=== PATIENT | female | born 1965 | race Caucasian/White ===

== ENCOUNTER 2017-12-26 19:54 | Emergency (ER) | payer MEDICAID, SELFPAY ==
[2017-12-26 19:55] VITALS: BP 134/73; PULSE 95; RESP 17; TEMP 35.9; O2SAT 97; BMI 28.0
[2017-12-26 20:36] LABS: Bedside Glucose > 500 mg/dL (70-110)
[2017-12-26 20:44] LABS: Absolute Lymphocyte Count 3.32 X10^3/ul (0.83-4.51); Absolute Neutrophil Count 4.3 X10^3/uL (2.0-7.7); Basophil# 0.02 X10^3/uL; Basophil% 0.2 % (0-1); Eosinophil# 0.06 X10^3/uL; Eosinophils% 0.7 % (0-5); Hematocrit 41.9 % (37-47); Hemoglobin 13.9 g/dl (12.0-15.0); Lymphocyte # 3.32 X10^3/ul (4.0); Lymphocyte % 41.4 % (19-41); Mean Corp Hgb Conc 33.2 g/gl (32-36); Mean Corpuscular Volume 90.5 fL (81-99); Monocyte# 0.31 X10^3/uL; Monocyte% 3.9 % (0-10); Neutrophil % 53.7 % (47-70); Platelet Count 265 K/mm3 (150-450); RBC Distribution Width CV 13.1 % (11.6-14.6); RBC Distribution Width SD 42.9 fl (35.1-43.9); Red Blood Count 4.63 M/mm3 (4.2-5.4)
[2017-12-26 20:45] LABS: POSITIVE COUNT NO; POSITIVE DIFFERENTIAL NO; POSITIVE MORPHOLOGY NO
[2017-12-26 20:59] LABS: Bacteria 0 SEEN /hpf (None Seen); Mucous, Urine 0 SEEN /hpf (<or=2+); White Blood Cells 0 SEEN /hpf (0-5)
[2017-12-26] MEDS: 0.9% Normal Saline 1,000 ML 250 ML IV (21:00)
[2017-12-26] MEDS: Ondansetron 4 MG/2 ML Vial IV (21:00)
[2017-12-26 21:01] LABS: Color, Urine Yellow (Yellow); Glucose, Dipstick 1000 mg/dl (Normal); Ketone-Dipstick Negative (Negative); Leukocyte Esterase-Dipstick Negative /ul (Negative); Nitrite-Dipstick Negative (Negative); Occult Blood-Urine 250 /ul (Negative); Protein-Dipstick Negative (Negative); Urine Bilirubin Dipstick Negative (Negative); Urine Clarity Cloudy (Clear); Urine Urobilinogen Normal (Normal)
[2017-12-26 21:07] LABS: Anion Gap 10 (5-15); BUN 11 mg/dL (7-18); Calcium,Total 8.4 mg/dL (8.5-10.1); Chloride 95 mmol/L (98-107); Creatinine, Serum 1.37 mg/dL (0.55-1.02); EST Glomerular Filtration Rate 43 mL/min (>60); Est Glom Filt Rate - Afr Amer 52 mL/min (>60); Estimated Creatinine Clearance 38.83 ml/min; Glucose 559 mg/dL (74-106); Sodium Level 132 mmol/L (136-145)
--- NOTE | 2017-12-26 21:07 | ED.RN ---
LAB CALLS WITH CRITICAL RESULT, GLUCOSE 559, DR. ZHOU MADE AWARE.
[2017-12-26 21:09] LABS: Red Blood Cells-Urine > 100 SEEN /hpf (0-5); Squamous Epithelial Cells - UA 0-5 SEEN /hpf (5-10)
--- NOTE | 2017-12-26 21:29 | ED.VISSUMM ---
- ER Visit Summary Date of Service: 12/26/17 Chief Complaint: R Flank pain History of Present Illness: The patient is a 52 F with right flank pain. It started yesterday. She has been having some hematuria. She has a history of kidney stones. Last episode was about a year ago. She sees Dr. Pichardo for them. She took her home oxycodone but it did not help. She denies a fever. No other symptoms Physical Examination: Vital signs reviewed. HEENT exam unremarkable. Heart is regular rate and rhythm without murmurs. Lungs are clear to auscultation. Abdomen is soft and redness in the right lower quadrant. Extremities reveal no edema. Skin exam normal. Neurologic exam normal. Test Results: Laboratory studies show blood sodium of 132 and glucose of 559. There are greater than 100 red blood cells in the urine. Emergency Department Course and Treatment: She was treated with morphine and Zofran here. She continued to have pain so she was given Dilaudid as well as IV fluids. She is allergic to nonsteroidals so Toradol was not given. Patient was given 20 units of regular insulin for the hyperglycemia. The patient felt improved. She does have narcotics to take at home for her kidney stones. She will call her urologist tomorrow for follow-up appointment. Treatment Plan: [] Disposition: Discharge Impression: Hyperglycemia, hematuria, flank pain This note was generated with [employer] dictation software. It may contain incorrect words, spelling, and punctuation that were not noted in review of the chart prior to signing ED Disposition - Plan for ED Patient: Chief Complaint: Flank Pain Referrals: Jeferson Valencia III, MD [Primary Care Provider] -
--- NOTE | 2017-12-26 21:33 | ED.DEP ---
ED Disposition - Plan for ED Patient: Disposition: Home or Assisted Living Chief Complaint: Flank Pain Instructions: ED Stone Renal W Colic Referrals: Jeferson Valencia III, MD [Primary Care Provider] -
[2017-12-26] MEDS: HYDROmorphone 1 MG/ML Syringe IV (21:49)
[2017-12-26 21:55] VITALS: BP 127/76; PULSE 81; RESP 20
[2017-12-26 22:06] VITALS: BP 116/69; PULSE 82; RESP 16; O2SAT 96
== END 2017-12-26 22:08 | disposition home or self-care (01) ==
PROVIDERS: Emergency Provider Emergency Medicine; Family Provider Family Medicine; PCP Family Medicine
DX: E11.65 Type 2 diabetes mellitus with hyperglycemia (principal); R31.9 Hematuria, unspecified; R10.9 Unspecified abdominal pain; Z87.442 Personal history of urinary calculi; Z72.0 Tobacco use
CPT/HCPCS: 80048; 81001; 82962; 85025; 99283; J7030; A4216; J2405

== ENCOUNTER 2017-12-27 21:05 | Emergency (ER) | payer MEDICAID, SELFPAY ==
[2017-12-27 21:07] VITALS: BP 151/83; PULSE 86; PULSE 90; RESP 17; TEMP 36.6; O2SAT 97; BMI 31.3
--- NOTE | 2017-12-27 22:03 | US_ITS ---
STUDY: RENAL ULTRASOUND - COMPLETE REASON FOR EXAM: Female, 52 years old. Right flank pain TECHNIQUE: Ultrasound evaluation of the kidneys was performed with real-time and static gallegos-scale imaging. COMPARISON: CT dated 03/17/2017. FINDINGS: RIGHT KIDNEY: Normal location of the right kidney, which is normal in size. The right kidney measures 11.6 cm. There is a normal cortex of the right kidney. There is no right renal mass or cyst. There are no right renal calculi. There is mild hydronephrosis of the right kidney. DISTAL RIGHT URETER: There is non-visualization of the distal right ureter. There is no demonstrated right ureterovesical junction calculus. There is no demonstrated right ureteral jet. LEFT KIDNEY: Normal location of the left kidney, which is normal in size. The left kidney measures 10.8 cm. There is a normal cortex of the left kidney. There is no left renal mass or cyst. There are no left renal calculi. There is mild hydronephrosis of the left kidney. DISTAL LEFT URETER: There is non-visualization of the distal left ureter. There is no demonstrated left ureterovesical junction calculus. There is no demonstrated left ureteral jet. AORTA: No evidence of abdominal aortic aneurysm. I.V.C.: The IVC is patent. BLADDER: The urinary bladder is partially distended and appears unremarkable. US/Kidney and Bladder IMPRESSION: Mild bilateral hydronephrosis with no cause identified on this study. Further evaluation with CT is recommended to evaluate for ureteral stone or obstruction. Electronically Signed: Michael Cortez, at 23:16 EST Tel , Service support ,
--- NOTE | 2017-12-27 22:08 | ED.DCSUM_ITS ---
- ER Visit Summary Date of Service: 12/27/17 Chief Complaint: [Right flank pain] History of Present Illness: The patient is a 52 F [who presents the emergency department with right flank pain. It started 2 days ago. She has had some hematuria. She was seen in the emergency department last night and had blood work and a urinalysis which was consistent with a possible kidney stone. Pain was controlled. Patient will follow-up with her primary care doctor tomorrow however her pain was out of control tonight and she called her doctor who told her to come to the emergency department for pain control. She has had 3-4 CAT scans for this in the past. She did not have any imaging last night. She has had chills but no fever. She has hematuria. Patient is diabetic she states her blood sugar was 503 today. She has had some nausea but no vomiting. Bowel movements have been normal.] Physical Examination: [] Pressure 151/83 other vitals within normal limits WN WD NAD PERRL EOMI MMM NECK supple and nontender, no masses RRR no murmur rub or gallop, no peripheral edema, symmetric radial pulses CTAB no respiratory distress ABDOMEN is soft mild tenderness right lower quadrant, normal bowel sounds, no distension, no rebound or guarding Mild right CVA discomfort SKIN is warm and dry no rashes Alert and Oriented x3, CN II-XII in tact, no motor or sensory deficits, gait normal No lymphadenopathy Test Results: [] Emergency Department Course and Treatment: [Patient was given fluids BMP was obtained to evaluate kidney function as well as blood sugar. Patient was given Dilaudid and Zofran for pain. KUB and renal ultrasound were ordered. KUB shows a phlebolith in the right pelvis. Ultrasound shows bilateral hydronephrosis and recommended CT. CT was obtained and shows no evidence of urolithiasis but mild bilateral hydronephrosis. Patient continues to have hematuria with mild bilateral hydronephrosis. I did encourage her to follow-up with Dr. Fair. She is an appointment with her primary care doctor tomorrow which she will keep. Her pain is better controlled after pain medicine in the emergency department. She was given precautions for which to return.] Treatment Plan: [] Disposition: [Discharge] Impression: [Flank pain, hematuria] This note was generated with [employer] software. It may contain incorrect words, spelling, and punctuation that were not noted in review of the chart prior to signing ED Disposition - Plan for ED Patient: Chief Complaint: Flank Pain Referrals: Jeferson Valencia III, MD [Primary Care Provider] -
[2017-12-27] MEDS: Ondansetron 4 MG/2 ML Vial IV (22:24)
[2017-12-27] MEDS: 0.9% Normal Saline 1,000 ML 1000 ML IV (22:24)
[2017-12-27] MEDS: HYDROmorphone 1 MG/ML Syringe IV (22:24)
--- NOTE | 2017-12-27 22:30 | RAD_ITS ---
STUDY: X-RAY - ABDOMEN/PELVIS REASON FOR EXAM: Female, 52 years old. Right-sided pain. TECHNIQUE: Two AP supine views of the abdomen and pelvis. COMPARISON: 03/17/2017. FINDINGS: There is no bowel obstruction. There is air and stool to the level of the rectum. There is a large amount of stool in the colon, consistent with constipation. No definite renal stones are identified. There is a calcification in the right lower quadrant which may represent a phlebolith, but a ureteral stone cannot be excluded. The visualized osseous structures are within normal limits. RAD/Abdomen Single View IMPRESSION: No bowel obstruction. Constipation. No definite renal stones are identified. Calcification in the right lower quadrant which may represent a phlebolith, but a ureteral stone cannot be excluded. This is stable when compared with the prior exam. Therefore, a phlebolith is favored. Electronically Signed: Michael Cortez, at 23:00 EST Tel , Service support ,
[2017-12-27 22:33] LABS: Mucous, Urine 0 SEEN /hpf (<or=2+)
[2017-12-27 22:38] LABS: Color, Urine Straw (Yellow); Glucose, Dipstick 1000 mg/dl (Normal); Ketone-Dipstick Negative (Negative); Leukocyte Esterase-Dipstick 25 /ul (Negative); Nitrite-Dipstick Negative (Negative); Occult Blood-Urine 250 /ul (Negative); Protein-Dipstick Negative (Negative); Specific Gravity, Urine 1.015 (1.002-1.030); Urine Bilirubin Dipstick Negative (Negative); Urine Clarity Cloudy (Clear); Urine Urobilinogen Normal (Normal)
[2017-12-27 22:46] LABS: Bacteria 1+ /hpf (None Seen); Red Blood Cells-Urine 50-100 SEEN /hpf (0-5); White Blood Cells 0-5 SEEN /hpf (0-5); Yeast-Urine RARE /hpf (None Seen)
[2017-12-27 22:48] LABS: Squamous Epithelial Cells - UA 5-10 SEEN /hpf (5-10)
[2017-12-27 22:50] LABS: Anion Gap 7 (5-15); BUN 15 mg/dL (7-18); BUN/Creat Ratio 15.1 RATIO (10-20); Calcium,Total 8.7 mg/dL (8.5-10.1); Chloride 99 mmol/L (98-107); EST Glomerular Filtration Rate 62 mL/min (>60); Est Glom Filt Rate - Afr Amer 75 mL/min (>60); Glucose 399 mg/dL (74-106); Potassium 4.2 mmol/L (3.5-5.1); Sodium Level 133 mmol/L (136-145)
[2017-12-27 23:05] VITALS: BP 145/70; PULSE 69; RESP 14; O2SAT 98
--- NOTE | 2017-12-27 23:27 | CT_ITS ---
CT Abdomen And Pelvis W/O Contrast INDICATION: C/O RIGHT FLANK PAIN X SEVERAL DAYS, DX WITH KS YESTERDAY, INCREASED PAIN TODAY, HX HYSTERECTOMY, DIAB, PARATHYROID CA WITH REMOVAL, GB COMPARISON: None TECHNIQUE: Noncontrast axial CT examination of the abdomen and pelvis with coronal and sagittal reformatted images. Radiation dose optimization technique applied. FINDINGS: Lung bases are clear. The heart size is normal. The liver contains few calcific densities, likely granulomas. Liver measures 22 cm in craniocaudal dimension. Gallbladder surgically absent. Spleen contains a 1 cm calcified granuloma . The kidneys demonstrate mild hydronephrosis bilaterally. There is no evidence of urolithiasis. Ureters are mildly prominent proximally and normal in caliber distally. The urinary bladder is nondistended. The bowel loops are nondistended. The appendix is unremarkable. There is no evidence of free air or free fluid. The osseous structures demonstrate degenerative disc disease at the lower lumbar spine with posterior disc osteophyte at L4-L5 resulting in lumbar spinal stenosis. A simple fat-containing umbilical hernia is noted. CT/Abdomen/Pelvis without Cont IMPRESSION: Mild bilateral hydronephrosis. No evidence of urolithiasis. Urinary bladder is not significantly distended. Hepatomegaly. Hepatic and splenic granulomas. Simple fat-containing umbilical hernia. at 0018 Reported and signed by: Meg Conteh MD Electronically Signed: Meg Conteh MD at 23:16 EST Tel , Service support ,
[2017-12-28] MEDS: HYDROmorphone 1 MG/ML Syringe 0.5 MG IV (00:11)
--- NOTE | 2017-12-28 00:24 | ED.DEP ---
ED Disposition - Plan for ED Patient: Chief Complaint: Flank Pain Instructions: ED Flank Pain Uncertain Cause, ED Hematuria Referrals: Jeferson Valencia III, MD [Primary Care Provider] - 1 Day Lio Pichardo MD [STAFF PHYSICIAN] - 5-7 Days
[2017-12-28 01:01] VITALS: BP 125/66; PULSE 76; RESP 16; O2SAT 97
== END 2017-12-28 01:02 | disposition home or self-care (01) ==
LOC: ED 22:13
PROVIDERS: Emergency Provider Emergency Medicine; Family Provider Family Medicine; PCP Family Medicine
DX: R10.9 Unspecified abdominal pain (principal); R31.9 Hematuria, unspecified; R73.9 Hyperglycemia, unspecified; N13.30 Unspecified hydronephrosis; Z79.4 Long term (current) use of insulin; Z72.0 Tobacco use
CPT/HCPCS: 74018; 74176; 76770; 80048; 81001; 96361; 96374; 96375; 96376; 99283; J7030; A4216; J2405

== ENCOUNTER 2018-02-07 19:33 | Emergency (ER) | payer MEDICAID, SELFPAY ==
[2018-02-07 19:34] VITALS: BP 142/81; PULSE 94; RESP 16; TEMP 36.1; O2SAT 98; BMI 30.7
[2018-02-07 21:06] LABS: Bacteria 0 SEEN /hpf (None Seen); Mucous, Urine 0 SEEN /hpf (<or=2+); White Blood Cells 0 SEEN /hpf (0-5)
[2018-02-07 21:11] LABS: Color, Urine Yellow (Yellow); Glucose, Dipstick 1000 mg/dl (Normal); Ketone-Dipstick Negative (Negative); Leukocyte Esterase-Dipstick Negative /ul (Negative); Nitrite-Dipstick Negative (Negative); Occult Blood-Urine 250 /ul (Negative); Protein-Dipstick Negative (Negative); Urine Bilirubin Dipstick Negative (Negative); Urine Clarity Clear (Clear); Urine Urobilinogen Normal (Normal)
[2018-02-07 21:22] LABS: Absolute Lymphocyte Count 3.76 X10^3/ul (0.83-4.51); Absolute Neutrophil Count 7.1 X10^3/uL (2.0-7.7); Basophil# 0.03 X10^3/uL; Basophil% 0.3 % (0-1); Eosinophil# 0.07 X10^3/uL; Eosinophils% 0.6 % (0-5); Hematocrit 44.2 % (37-47); Hemoglobin 14.6 g/dl (12.0-15.0); Lymphocyte # 3.76 X10^3/ul (4.0); Lymphocyte % 32.7 % (19-41); Mean Corpuscular Hgb 29.6 pg (27.0-32.0); Mean Corpuscular Volume 89.7 fL (81-99); Monocyte# 0.49 X10^3/uL; Monocyte% 4.3 % (0-10); Neutrophil # 7.11 X10^3/uL (2.7-7.7); Neutrophil % 61.8 % (47-70); Platelet Count 277 K/mm3 (150-450); RBC Distribution Width CV 12.7 % (11.6-14.6); RBC Distribution Width SD 41.2 fl (35.1-43.9); Red Blood Count 4.93 M/mm3 (4.2-5.4); White Blood Count 11.5 K/mm3 (4.4-11.0)
--- NOTE | 2018-02-07 21:30 | CT_ITS ---
STUDY: CT ABDOMEN AND PELVIS WITHOUT CONTRAST REASON FOR EXAM: Female, 52 years old. Abdominal pain and bloating. RADIATION DOSAGE (If Supplied By Facility): CTDIvol = ( 9.01 ) mGy, DLP = ( 438.75 ) mGycm TECHNIQUE: Transaxial images were obtained from the dome of the diaphragm to the symphysis pubis without oral contrast, and without intravenous contrast. Sagittal and coronal images were reconstructed. Individualized dose optimization techniques were used for this CT. COMPARISON: None. FINDINGS: The visualized lung bases are unremarkable. The visualized portions of the heart are within normal limits. The liver remains enlarged. The gallbladder again is absent consistent with previous cholecystectomy. There is a benign calcified granuloma of the spleen. Normal pancreas. Normal bilateral adrenal glands. There again is prominence of the renal pelvises bilaterally. Ureters are not dilated. There is no evidence of abnormal calcifications in the kidneys or the expected courses of the ureters bilaterally. Normal visualized stomach. There are nonspecific fluid-filled small bowel loops. There is no evidence of small bowel obstruction. The appearance is unchanged since prior exam. There is fecal retention. The appendix is visualized and appears normal. There is atherosclerotic calcification of the abdominal aorta, without a demonstrated aneurysm. Normal inferior vena cava. Normal retroperitoneum. The urinary bladder is distended. There is an umbilical hernia containing fat. There are mild degenerative changes in the spine. There is narrowing of L4-L5 disc space with broad-based posterior degenerative spur causing narrowing of the spinal canal. CT/Abdomen/Pelvis without Cont IMPRESSION: Hepatomegaly. No evidence of urinary tract stones. Nonspecific fluid-filled small bowel loops without evidence of small bowel obstruction. Umbilical hernia containing fat. Electronically Signed: Andrea Albarran MD at 22:38 EDT Tel , Service support ,
[2018-02-07 21:31] LABS: POSITIVE COUNT NO; POSITIVE DIFFERENTIAL NO; POSITIVE MORPHOLOGY NO
[2018-02-07 21:39] LABS: Anion Gap 9 (5-15); BUN 15 mg/dL (7-18); BUN/Creat Ratio 11.4 RATIO (10-20); Calcium,Total 8.8 mg/dL (8.5-10.1); Chloride 94 mmol/L (98-107); Creatinine, Serum 1.32 mg/dL (0.55-1.02); EST Glomerular Filtration Rate 45 mL/min (>60); Est Glom Filt Rate - Afr Amer 54 mL/min (>60); Glucose 518 mg/dL (74-106); Potassium 4.3 mmol/L (3.5-5.1); Sodium Level 130 mmol/L (136-145)
--- NOTE | 2018-02-07 21:40 | ED.RN ---
LAB CALLED WITH CRITICAL LAB RESULTS. GLUCOSE 518. DR. NOLAN MADE AWARE. NO NEW ORDERS AT THIS TIME
[2018-02-07 21:47] LABS: Red Blood Cells-Urine 25-50 SEEN /hpf (0-5); Squamous Epithelial Cells - UA 0-5 SEEN /hpf (5-10)
[2018-02-07 21:55] LABS: AST(SGOT) 17 U/L (15-37); Alanine Aminotransfer ALT/SGPT 33 U/L (13-56); Alkaline Phosphatase 88 U/L (45-117); Bilirubin, Direct 0.07 mg/dL (0.00-0.30); Globulin 3.8 g/dL (2.2-4.2); Protein, Total 7.8 g/dL (6.4-8.2)
[2018-02-07 21:57] LABS: Lipase 461 U/L (73-393)
[2018-02-07] MEDS: Ondansetron 4 MG/2 ML Vial IV (21:58)
[2018-02-07] MEDS: Morphine 4 MG/ML Syringe IV (22:00)
[2018-02-07 22:02] VITALS: BP 124/60; PULSE 69; RESP 16; O2SAT 96
[2018-02-07] MEDS: 0.9% Normal Saline 1,000 ML 999 ML IV ×2 (22:28)
[2018-02-07 22:35] LABS: Bedside Glucose 459 mg/dL (70-110)
--- NOTE | 2018-02-07 23:10 | ED.DCSUM_ITS ---
- ER Visit Summary Date of Service: 02/07/18 Chief Complaint: Abdominal pain History of Present Illness: The patient is a 52 F who presents with abdominal pain. She states began about 12 hours prior to presentation. It is aching. It is diffuse but has begun to migrate to the right lower quadrant. She reports nausea without vomiting. She has had some diarrhea with watery stools today as well. She states that she feels very bloated. She denies fever chest pain shortness of breath. Physical Examination: Afebrile vitals are unremarkable Patient resting comfortably in no distress Moist mucous membranes Heart regular rate and rhythm Lungs are clear Abdomen soft nondistended she has some diffuse nonfocal tenderness without guarding or rebound she does not have pain specific to McBurney's point she has a negative Rovsing sign Test Results: Laboratory studies notable for white blood cell count 11.5. Glucose is 518 with sodium of 130 which is likely related to hyperglycemia. Better function is unremarkable. Lipase of 461. Urinalysis shows 250 blood and 25-[address] of the abdomen and pelvis shows hepatomegaly no ureterolithiasis there is an umbilical hernia containing fat as well as nonspecific fluid-filled small bowel loops the appendix is normal. Emergency Department Course and Treatment: Patient was treated with IV fluids and Zofran for symptoms. On reevaluation she is resting comfortably. Her lipase is minimally elevated but I do not believe this represents acute pancreatitis given that it is a very mild elevation and she did not have inflammatory changes on CT either. Her laboratory studies were notable for hyperglycemia but she has normal anion gap. Her creatinine is slightly increased from prior but BUN is normal. She was given a couple of liters of IV fluid and subcutaneous insulin for her hyperglycemia. On recheck she is down to 389. She will call her physician tomorrow. I do believe she can safely be discharged home. She understands to return for new or worsening symptoms. Treatment Plan: [] Disposition: Discharge Impression: Abdominal pain Hyperglycemia This note was generated with [employer] dictation software. It may contain incorrect words, spelling, and punctuation that were not noted in review of the chart prior to signing ED Disposition - Plan for ED Patient: Chief Complaint: Abd Pain Referrals: Jeferson Valencia III, MD [Primary Care Provider] -
[2018-02-07 23:25] LABS: Bedside Glucose 389 mg/dL (70-110)
--- NOTE | 2018-02-07 23:25 | ED.DEP ---
ED Disposition - Plan for ED Patient: Chief Complaint: Abd Pain Instructions: ED Abdominal Pain Unkn Cause, ED Hyperglycemia Diabetic Referrals: Jeferson Valencia III, MD [Primary Care Provider] -
[2018-02-07 23:29] VITALS: BP 127/76; PULSE 67; RESP 16; O2SAT 97
[2018-02-07 23:59] VITALS: BP 138/76; PULSE 60; RESP 16; O2SAT 100
== END 2018-02-08 00:02 | disposition home or self-care (01) ==
PROVIDERS: Emergency Provider Emergency Medicine; Family Provider Family Medicine; PCP Family Medicine
DX: R10.9 Unspecified abdominal pain (principal); E11.65 Type 2 diabetes mellitus with hyperglycemia; K42.9 Umbilical hernia without obstruction or gangrene; Z72.0 Tobacco use
CPT/HCPCS: 74176; 80048; 80076; 81001; 82962; 83690; 85025; 96361; 96374; 96375; 99284; J7030; A4216; J2405

== ENCOUNTER 2018-04-05 20:18 | Emergency (ER) | payer MEDICAID, SELFPAY ==
[2018-04-05 20:20] VITALS: BP 119/70; PULSE 90; RESP 16; TEMP 36.6; O2SAT 98; BMI 32.0
--- NOTE | 2018-04-05 21:29 | CT_ITS ---
STUDY: CT ABDOMEN AND PELVIS WITHOUT CONTRAST REASON FOR EXAM: Female, 52 years old. Right flank pain. RADIATION DOSAGE (If Supplied By Facility): CTDIvol = ( 9.40 ) mGy, DLP = ( 439.19 ) mGycm TECHNIQUE: Transaxial images were obtained from the dome of the diaphragm to the symphysis pubis without oral contrast, and without intravenous contrast. Sagittal and coronal images were reconstructed. Individualized dose optimization techniques were used for this CT. COMPARISON: February 07, 2018 FINDINGS: The visualized lung bases are unremarkable. The visualized portions of the heart are within normal limits. There are hepatic granulomas. There are surgical clips in the gallbladder fossa consistent with a prior cholecystectomy. There is a benign calcified granuloma of the spleen. Normal pancreas. Normal bilateral adrenal glands. Normal right kidney. Normal left kidney. Normal visualized stomach. Normal small intestine. Normal colon. The appendix is visualized and appears normal. There is diffuse atherosclerotic calcification of the abdominal aorta, without a demonstrated aneurysm. Normal inferior vena cava. Normal retroperitoneum. Normal urinary bladder. There is a small umbilical hernia containing fat. There are diffuse degenerative changes of the visualized lumbar spine. CT/Abdomen/Pelvis without Cont IMPRESSION: No acute intra-abdominal process. Hepatic and splenic granulomas. Umbilical hernia. Atherosclerosis. Electronically Signed: Courtney Gutierrez MD at 22:23 EDT Tel , Service support ,
[2018-04-05 21:43] LABS: Absolute Lymphocyte Count 3.56 X10^3/ul (0.83-4.51); Absolute Neutrophil Count 4.6 X10^3/uL (2.0-7.7); Basophil# 0.05 X10^3/uL; Basophil% 0.6 % (0-1); Eosinophil# 0.08 X10^3/uL; Eosinophils% 0.9 % (0-5); Hematocrit 40.6 % (37-47); Hemoglobin 14.1 g/dl (12.0-15.0); Lymphocyte # 3.56 X10^3/ul (4.0); Lymphocyte % 40.7 % (19-41); Mean Corp Hgb Conc 34.7 g/gl (32-36); Mean Corpuscular Hgb 30.7 pg (27.0-32.0); Mean Corpuscular Volume 88.5 fL (81-99); Mean Platelet Vol. 10.6 fl (6.2-12.0); Monocyte% 4.6 % (0-10); Neutrophil # 4.64 X10^3/uL (2.7-7.7); Neutrophil % 53.1 % (47-70); Platelet Count 264 K/mm3 (150-450); RBC Distribution Width CV 12.8 % (11.6-14.6); RBC Distribution Width SD 41.3 fl (35.1-43.9); Red Blood Count 4.59 M/mm3 (4.2-5.4); White Blood Count 8.7 K/mm3 (4.4-11.0)
[2018-04-05 21:45] LABS: POSITIVE COUNT NO; POSITIVE DIFFERENTIAL NO; POSITIVE MORPHOLOGY NO
[2018-04-05] MEDS: Ondansetron 4 MG/2 ML Vial IV ×2 (21:45→23:03)
[2018-04-05] MEDS: Ketorolac 30 MG/ML Syringe IV (21:45)
[2018-04-05] MEDS: 0.9% Normal Saline 1,000 ML 250 ML IV (21:45)
[2018-04-05] MEDS: Morphine 4 MG/ML Syringe IV ×2 (21:45→23:03)
[2018-04-05 21:49] LABS: Bacteria 0 SEEN /hpf (None Seen); Mucous, Urine 0 SEEN /hpf (<or=2+); White Blood Cells 0 SEEN /hpf (0-5)
[2018-04-05 21:52] LABS: Anion Gap 9 (5-15); BUN 13 mg/dL (7-18); BUN/Creat Ratio 11.8 RATIO (10-20); Calcium,Total 8.7 mg/dL (8.5-10.1); Chloride 98 mmol/L (98-107); EST Glomerular Filtration Rate 55 mL/min (>60); Est Glom Filt Rate - Afr Amer 66 mL/min (>60); Glucose 364 mg/dL (74-106); Potassium 3.9 mmol/L (3.5-5.1); Sodium Level 134 mmol/L (136-145)
[2018-04-05 21:55] LABS: Glucose, Dipstick 1000 mg/dl (Normal); Ketone-Dipstick Negative (Negative); Leukocyte Esterase-Dipstick 25 /ul (Negative); Nitrite-Dipstick Negative (Negative); Occult Blood-Urine 250 /ul (Negative); Protein-Dipstick 30 mg/dl (Negative); Specific Gravity, Urine 1.015 (1.002-1.030); Urine Bilirubin Dipstick Negative (Negative); Urine Clarity Cloudy (Clear); Urine Urobilinogen Normal (Normal)
[2018-04-05 21:58] LABS: Color, Urine SEE COMMENT BELOW (Yellow)
[2018-04-05 22:02] LABS: Red Blood Cells-Urine > 100 SEEN /hpf (0-5); Squamous Epithelial Cells - UA 0-5 SEEN /hpf (5-10)
[2018-04-05 23:02] VITALS: BP 135/67; PULSE 63; RESP 16; O2SAT 98
--- NOTE | 2018-04-05 23:20 | ED.VISSUMM ---
- ER Visit Summary Date of Service: 04/05/18 Chief Complaint: Right flank pain History of Present Illness: The patient is a 52 F notes a sudden onset of right flank pain yesterday. She is described as sharp and stabbing intermittent in nature currently moderate maximum severe. She notes a history of kidney stones and states this feels very similar. She seen Dr. Hailey carranza in the past. She notes blood in the urine and urinary frequency. Physical Examination: Afebrile vital signs are stable Gen: Well-nourished well-developed Head: Normocephalic atraumatic Eyes: Perrl EOMI ENT: TMs clear no rhinorrhea moist mucous membranes Neck: Supple no lymphadenopathy no JVD nontender CVS: Regular rate rhythm no murmurs normal S1-S2 Respiratory: No distress clear to auscultation bilaterally chest nontender Abdomen: Soft nontender nondistended normal bowel sounds no masses Back: Mild right CVA tenderness Extremity: Nontender no edema Skin: Normal color no rash Neuro: alert orientated ?3 CN II-XII intact normal strength sensation reflexes gait cerebellar Psych: Normal affect normal mood Test Results: Patient has obvious hematuria. Creatinine 1.1 glucose 364, CBC normal CT the flank did not demonstrate an obvious kidney stone or hydronephroureter. Emergency Department Course and Treatment: Patient received IV fluids, Toradol morphine and Zofran and her pains improved. I believe the patient has either recently passed a kidney stone or there is a small stone in between the slices we are missing. I will write her for [place] and Zofran and have her follow up with urology return if worsening or concerns. Impression: 1. Right flank pain 2. Hematuria This note was generated with [employer] dictation software. It may contain incorrect words, spelling, and punctuation that were not noted in review of the chart prior to signing ED Disposition - Plan for ED Patient: Disposition: Home or Assisted Living Chief Complaint: Flank Pain Instructions: ED Stone Renal W Colic Prescriptions: Ondansetron [Zofran Odt] 4 mg PO Q6H PRN PRN #10 tab PRN Reason: Nausea Hydrocodone/Acetaminophen [Ellington 5-325 Tablet] 1 - 2 ea PO 4X/DAY PRN PRN 3 Days #12 tab PRN Reason: Pain Referrals: Lio Pichardo MD [STAFF PHYSICIAN] - (CALL TO ARRANGE FOLLOW UP)
--- NOTE | 2018-04-05 23:23 | ED.DCSUM_ITS ---
- ER Visit Summary Date of Service: 04/05/18 Chief Complaint: Right flank pain History of Present Illness: The patient is a 52 F notes a sudden onset of right flank pain yesterday. She is described as sharp and stabbing intermittent in nature currently moderate maximum severe. She notes a history of kidney stones and states this feels very similar. She seen Dr. Hailey carranza in the past. She notes blood in the urine and urinary frequency. Physical Examination: Afebrile vital signs are stable Gen: Well-nourished well-developed Head: Normocephalic atraumatic Eyes: Perrl EOMI ENT: TMs clear no rhinorrhea moist mucous membranes Neck: Supple no lymphadenopathy no JVD nontender CVS: Regular rate rhythm no murmurs normal S1-S2 Respiratory: No distress clear to auscultation bilaterally chest nontender Abdomen: Soft nontender nondistended normal bowel sounds no masses Back: Mild right CVA tenderness Extremity: Nontender no edema Skin: Normal color no rash Neuro: alert orientated ?3 CN II-XII intact normal strength sensation reflexes gait cerebellar Psych: Normal affect normal mood Test Results: Patient has obvious hematuria. Creatinine 1.1 glucose 364, CBC normal CT the flank did not demonstrate an obvious kidney stone or hydronephroureter. Emergency Department Course and Treatment: Patient received IV fluids, Toradol morphine and Zofran and her pains improved. I believe the patient has either recently passed a kidney stone or there is a small stone in between the slices we are missing. I will write her for Bryant and Zofran and have her follow up with urology return if worsening or concerns. Impression: 1. Right flank pain 2. Hematuria This note was generated with [employer] dictation software. It may contain incorrect words, spelling, and punctuation that were not noted in review of the chart prior to signing ED Disposition - Plan for ED Patient: Disposition: Home or Assisted Living Chief Complaint: Flank Pain Instructions: ED Stone Renal W Colic Prescriptions: Ondansetron [Zofran Odt] 4 mg PO Q6H PRN PRN #10 tab PRN Reason: Nausea Hydrocodone/Acetaminophen [Bryant 5-325 Tablet] 1 - 2 ea PO 4X/DAY PRN PRN 3 Days #12 tab PRN Reason: Pain Referrals: Lio Pichardo MD [STAFF PHYSICIAN] - (CALL TO ARRANGE FOLLOW UP)
[2018-04-05] MEDS: Ondansetron ODT 4 MG Tablet PO (23:52)
[2018-04-05] MEDS: HYDROcodone Bitartrate/Apap 5/325 Tablet PO (23:53)
[2018-04-05 23:56] VITALS: BP 137/74; PULSE 69; RESP 16; O2SAT 96
== END 2018-04-05 23:57 | disposition home or self-care (01) ==
PROVIDERS: Emergency Provider Emergency Medicine; Family Provider Family Medicine; PCP Family Medicine
DX: R10.9 Unspecified abdominal pain (principal); R31.9 Hematuria, unspecified; E11.9 Type 2 diabetes mellitus without complications; E20.9 Hypoparathyroidism, unspecified; Z87.442 Personal history of urinary calculi; Z72.0 Tobacco use
CPT/HCPCS: 74176; 80048; 81001; 85025; 96361; 96374; 96375; 96376; 99283; J7030; A4216; J2405

== ENCOUNTER 2018-05-25 22:32 | Emergency (ER) | payer MEDICAID, SELFPAY ==
[2018-05-25 22:34] VITALS: BP 161/88; PULSE 79; RESP 17; TEMP 36.1; O2SAT 99; BMI 33.2
[2018-05-25] MEDS: Ondansetron 4 MG/2 ML Vial IV (23:34)
[2018-05-25] MEDS: Morphine 4 MG/ML Syringe IV (23:35)
--- NOTE | 2018-05-25 23:40 | RAD_ITS ---
STUDY: X-RAY - RIGHT TIBIA AND FIBULA REASON FOR EXAM: Female, 52 years old. Right leg the right with redness. TECHNIQUE: 2 view(s) of the tibia and fibula were obtained. COMPARISON: None. FINDINGS: Normal visualized tibia. Normal visualized fibula. There are vascular calcifications overlying the calf. RAD/Tibia & Fibula 2 Views IMPRESSION: Normal x-ray examination of the tibia and fibula. Electronically Signed: Edward Rush MD at 0:25 EDT , Service support ,
[2018-05-25 23:53] LABS: Absolute Lymphocyte Count 3.68 X10^3/ul (0.83-4.51); Absolute Neutrophil Count 5.3 X10^3/uL (2.0-7.7); Basophil# 0.03 X10^3/uL; Basophil% 0.3 % (0-1); Eosinophil# 0.17 X10^3/uL; Eosinophils% 1.8 % (0-5); Hematocrit 35.9 % (37-47); Hemoglobin 12.1 g/dl (12.0-15.0); Lymphocyte # 3.68 X10^3/ul (4.0); Lymphocyte % 38.3 % (19-41); Mean Corp Hgb Conc 33.7 g/gl (32-36); Mean Corpuscular Hgb 30.2 pg (27.0-32.0); Mean Corpuscular Volume 89.5 fL (81-99); Mean Platelet Vol. 9.3 fl (6.2-12.0); Monocyte% 4.2 % (0-10); Neutrophil # 5.29 X10^3/uL (2.7-7.7); Neutrophil % 55.1 % (47-70); Platelet Count 276 K/mm3 (150-450); RBC Distribution Width CV 12.4 % (11.6-14.6); RBC Distribution Width SD 40.5 fl (35.1-43.9); Red Blood Count 4.01 M/mm3 (4.2-5.4); White Blood Count 9.6 K/mm3 (4.4-11.0)
[2018-05-25 23:58] LABS: POSITIVE COUNT NO; POSITIVE DIFFERENTIAL NO; POSITIVE MORPHOLOGY NO
--- NOTE | 2018-05-25 23:58 | ED.DCSUM_ITS ---
History of Present Illness Chief Complaint: Bite Informant: Patient Quality: sore Location: right leg Current Severity: Moderate Maximum Severity: Moderate Worsened by: palpation, WBing Relieved by: remaining still Associated Symptoms: no fevers or other systemic sx Narrative: Patient states she had bites in her distal lateral right lower leg about 2 days ago. She said it itched and burned a little but nothing severe. She did not see the bite occur, but it is in the middle of summer and she has been in and outdoors. Today, after waking up she noticed some redness just proximal to the bite. By the end of the day, now, the redness has spread up past her mid britt. The red area is very painful. There has been no discharge from the bite itself but the redness started just around it. She states she is a poorly controlled diabetic, her last A1c was in the 's. - Past Medical History (1) Kidney stone on left side Status: Chronic Comment: present with left flank pain from 5mm stone in left kidney (2) Depressive disorder Status: Chronic (3) HTN (hypertension) Status: Chronic (4) Hyperparathyroid bone disease Status: Chronic (5) Pure hypercholesterolemia Status: Chronic (6) Type II diabetes mellitus, uncontrolled Status: Chronic Past Medical History - Allergies and Home Meds Allergies/Adverse Reactions: Allergies ciprofloxacin [From Cipro] Allergy (Verified 05/25/18 22:36) Swelling ciprofloxacin HCl [From Cipro] Allergy (Verified 05/25/18 22:36) Swelling codeine Allergy (Verified 05/25/18 22:36) Hives ibuprofen Allergy (Verified 05/25/18 22:36) Hives naproxen Allergy (Verified 05/25/18 22:36) Hives Penicillins Allergy (Verified 05/25/18 22:36) Hives tramadol HCl [From Ultram] Allergy (Verified 05/25/18 22:36) Hives Primary Care Physician: Jeferson Valencia III, MD [Primary Care Provider] - Surgical History: cholecystectomy, hysterectomy, - - , parathyroid gland removal, cholecytectomy, L ganglion cyst wrist. Smoking Status: Current every day smoker Drugs: None - Family History Maternal Family History: Family History (Last Updated 12/10/17 @ 13:42 by Angelika De La Torre) Other CVA (cerebral vascular accident) Cancer Diabetes Myocardial infarction Family History: Reports: Diabetes, Heart Disease - Mother w/ MS 55 years old. Paternal Family History: Family History (Last Updated 12/10/17 @ 13:42 by Angelika De La Torre) Other CVA (cerebral vascular accident) Cancer Diabetes Myocardial infarction Family History: Reports: Heart Disease - Father w/ MS/CAD w/ PCI x 1 at 64 y/o. Review of Systems All systems negative except as indicated General: Denies: Chills, Fever, Malaise Musculoskeletal: Reports: Extremity Pain Skin: Reports: Rash, Wounds. Denies: Abscess Neurological: Denies: Weakness, Parasthesia Physical Exam Vital Signs/Narrative: Vital Signs Temp Pulse Resp BP Pulse Ox 05/25/18 22:34 96.9 F L 79 17 161/88 H 99 Inital Vital Signs reviewed: Yes General: Well nourished, Well developed Head: Normocephalic, Atraumatic ENT: Moist mucous membranes, No rhinorrhea Cardiovascular: Regular rate, Regular rhythm, No murmurs Respiratory: No distress, CTA bilaterally, Chest nontender Extremities: No edema, Tenderness - anterior right lower leg where faint blanching erythema present. all compartments soft and ND. leg is warm. FROM ankle and knee w/o difficulty, although bending at ankle increases pain. 2+ DP pulse and brisk CR. Skin: Rash - warm, tender cellulitis left anterior leg, emanating proximally from benign-appearing small scabbed lesion distal lateral leg that would be consistent with small non-abscessed insect bite. no evidence of necrosis. no rings around the bite. no lymphangitis. no discharge from bite. no SQ emphysema. Neurological: Alert, Oriented x3, Cranial nerves II-XII grossly intact, Normal Strength, Normal Sensation Psychological: Normal affect Diagnostic/Tx/Re-eval Laboratory Tests 05/25/18 05/25/18 23:35 23:35 WBC 9.6 RBC 4.01 L Hgb 12.1 Hct 35.9 L MCV 89.5 MCH 30.2 MCHC 33.7 RDW 12.4 RDW Differential 40.5 Plt Count 276 MPV 9.3 Immature Gran % (Auto) 0.300 Neut % (Auto) 55.1 Lymph % (Auto) 38.3 [place] % (Auto) 4.2 Eos % (Auto) 1.8 Baso % (Auto) 0.3 Absolute Neuts (auto) 5.3 Absolute Lymphs (auto) 3.68 Total Counted Not Reportable Sodium 134 L Potassium 3.7 Chloride 99 Carbon Dioxide 29.0 Anion Gap 6 BUN 11 Creatinine 0.90 Estim Creat Clear Calc 51.33 Est GFR (MDRD) Af Amer 83 Est GFR (MDRD) Non-Af 69 BUN/Creatinine Ratio 12.2 Glucose 278 H Calcium 8.5 - Medical Decision Making Patient appears to have cellulitis from this insect bite, but more likely due to the fact that she has a break in the skin and is a uncontrolled diabetic. The bite itself looks very benign and does not appear to necessarily be involved in the infection at this time. She has no systemic symptoms and her labs are unremarkable with no leftward shift and an otherwise normal white blood count. X-rays of the tibia and fibula on my interpretation showed no signs of subcutaneous gas or bony involvement. She is amenable to treating this as an outpatient, I did give her an initial dose of IV clindamycin 600 mg, she declares a penicillin allergy. Will center him on clindamycin which I think is the next best choice, and we have outlined the cellulitic area and a skin marking pen. She is encouraged to return for worsening or systemic symptoms, otherwise to follow-up with her doctor closely. She is comfortable with that plan. ED Disposition - Plan for ED Patient: Disposition: Home or Assisted Living Chief Complaint: Bite Diagnosis: Cellulitis of right lower leg, Type II diabetes mellitus, uncontrolled Instructions: ED Infec Skin Cellulitis Prescriptions: Clindamycin [Cleocin] 300 mg PO 4X/DAY #80 cap Referrals: Jeferson Valencia III, MD [Primary Care Provider] - 3-5 Days
[2018-05-26 00:03] LABS: Anion Gap 6 (5-15); BUN 11 mg/dL (7-18); BUN/Creat Ratio 12.2 RATIO (10-20); Calcium,Total 8.5 mg/dL (8.5-10.1); Chloride 99 mmol/L (98-107); EST Glomerular Filtration Rate 69 mL/min (>60); Est Glom Filt Rate - Afr Amer 83 mL/min (>60); Estimated Creatinine Clearance 51.33 ml/min; Glucose 278 mg/dL (74-106); Potassium 3.7 mmol/L (3.5-5.1); Sodium Level 134 mmol/L (136-145)
[2018-05-26 00:40] VITALS: BP 142/75; PULSE 60; RESP 18; O2SAT 98
== END 2018-05-26 00:46 | disposition home or self-care (01) ==
PROVIDERS: Emergency Provider Emergency Medicine; Family Provider Family Medicine; PCP Family Medicine
DX: L03.115 Cellulitis of right lower limb (principal); E11.65 Type 2 diabetes mellitus with hyperglycemia; Z88.0 Allergy status to penicillin; F17.200 Nicotine dependence, unspecified, uncomplicated; E78.00 Pure hypercholesterolemia, unspecified; I10 Essential (primary) hypertension; F32.9 Major depressive disorder, single episode, unspecified; E21.3 Hyperparathyroidism, unspecified; Z87.442 Personal history of urinary calculi
CPT/HCPCS: 73590; 80048; 85025; 99283; J7050; J2405

== ENCOUNTER 2018-07-19 17:14 | Emergency (ER) | payer MEDICAID, SELFPAY ==
[2018-07-19 17:15] VITALS: BP 122/72; PULSE 71; RESP 18; TEMP 36.7; O2SAT 97; BMI 31.0
--- NOTE | 2018-07-19 17:41 | CT_ITS ---
STUDY: CT ABDOMEN AND PELVIS WITH CONTRAST REASON FOR EXAM: Female, 53 years old. Fell down 5 steps and hit head. Left upper quadrant pain with guarding. Left rib pain. Diabetes. Vomiting x3. RADIATION DOSAGE (If Supplied By Facility): CTDIvol = ( 15.64 ) mGy, DLP = ( 1008.25 ) mGycm TECHNIQUE: Transaxial images were obtained from the dome of the diaphragm to the symphysis pubis without oral contrast. 100ML ml of Isovue 300 contrast was administered. Sagittal and coronal images were reconstructed. Individualized dose optimization techniques were used for this CT. COMPARISON: April 05, 2018. FINDINGS: The visualized lung bases are unremarkable. The visualized portions of the heart are within normal limits. The liver is enlarged with diffuse fatty infiltration. There is a 4 mm calcified granuloma in segment 4A. No other masses are seen. There is non-visualization of the gallbladder, consistent with history cholecystectomy. There is a benign calcified granuloma of the spleen. Normal pancreas. Normal bilateral adrenal glands. The right kidney is grossly normal. There is an extrarenal pelvis. There is mild prominence of the ureter without focal mass or obstruction. This appears unchanged from the prior study. The left kidney is grossly normal. There is an extrarenal pelvis. Normal left ureter. The stomach is nondistended but grossly unremarkable. Normal small intestine. The colon is mildly redundant but without mass or obstruction. There is non-visualization of the appendix. There is diffuse atherosclerotic calcification of the abdominal aorta, without a demonstrated aneurysm. Normal inferior vena cava. Normal retroperitoneum. There is mild circumferential wall thickening of an incompletely distended urinary bladder. There is no evidence of filling defect. Uterus is retroverted and grossly unremarkable. There is no adnexal mass. No free air or free fluid is seen within the peritoneal cavity. Large umbilical hernia of omental fat. The abdominal wall is otherwise unremarkable. There are diffuse degenerative changes of the visualized lumbar spine. CT/Abdomen/Pelvis WITH Contrast IMPRESSION: 1. Hepatomegaly with fatty infiltration. 2. Stable hepatic and splenic granulomata. 3. No evidence of acute intra-abdominal or pelvic abnormality or major interval change. Electronically Signed: Silvestre Barone DO at 19:34 EDT Tel [phone], Service support ,
--- NOTE | 2018-07-19 17:41 | CT_ITS ---
STUDY: CT BRAIN WITHOUT CONTRAST REASON FOR EXAM: Female, 53 years old. Fell down steps. Hit head. No loss of consciousness. RADIATION DOSAGE (If Supplied By Facility): CTDIvol = ( 44.99 ) mGy, DLP = ( 796.11 ) mGycm TECHNIQUE: Transaxial CT imaging of the brain was performed without administration of intravenous contrast material. Individualized dose optimization techniques were used for this CT. COMPARISON: July 07, 2015. FINDINGS: Normal soft tissue structures. Normal calvarium. Normal size ventricles and extra-axial spaces for the patient's age. Normal white matter tracts of the cerebral hemispheres. Normal basal ganglia and thalami. Normal brainstem. Normal cerebellum. There is no intracranial hemorrhage. There are no findings of an acute ischemic infarction. Normal visualized paranasal sinuses. CT/Brain/Head without Contrast IMPRESSION: No acute intracranial or calvarial abnormality. There is no interval change. Electronically Signed: Silvestre Barone DO at 19:28 EDT Tel [phone], Service support ,
[2018-07-19] MEDS: Morphine 4 MG/ML Syringe IV (18:20)
[2018-07-19] MEDS: Ondansetron 4 MG/2 ML Vial IV (18:20)
[2018-07-19 18:33] LABS: Absolute Lymphocyte Count 3.19 X10^3/ul (0.83-4.51); Absolute Neutrophil Count 4.7 X10^3/uL (2.0-7.7); Basophil# 0.02 X10^3/uL; Basophil% 0.2 % (0-1); Eosinophil# 0.09 X10^3/uL; Eosinophils% 1.1 % (0-5); Hematocrit 36.2 % (37-47); Lymphocyte # 3.19 X10^3/ul (4.0); Lymphocyte % 38.4 % (19-41); Mean Corp Hgb Conc 33.1 g/gl (32-36); Mean Corpuscular Hgb 29.8 pg (27.0-32.0); Mean Corpuscular Volume 89.8 fL (81-99); Mean Platelet Vol. 9.4 fl (6.2-12.0); Monocyte# 0.32 X10^3/uL; Monocyte% 3.9 % (0-10); Neutrophil # 4.68 X10^3/uL (2.7-7.7); Neutrophil % 56.3 % (47-70); POSITIVE COUNT NO; POSITIVE DIFFERENTIAL NO; POSITIVE MORPHOLOGY NO; Platelet Count 266 K/mm3 (150-450); RBC Distribution Width CV 12.9 % (11.6-14.6); RBC Distribution Width SD 41.5 fl (35.1-43.9); Red Blood Count 4.03 M/mm3 (4.2-5.4); White Blood Count 8.3 K/mm3 (4.4-11.0)
[2018-07-19 18:43] LABS: Anion Gap 7 (5-15); BUN 13 mg/dL (7-18); Calcium,Total 8.6 mg/dL (8.5-10.1); Chloride 95 mmol/L (98-107); EST Glomerular Filtration Rate 61 mL/min (>60); Est Glom Filt Rate - Afr Amer 74 mL/min (>60); Estimated Creatinine Clearance 45.66 ml/min; Glucose 348 mg/dL (74-106); Sodium Level 132 mmol/L (136-145)
[2018-07-19 18:55] LABS: Bacteria 0 SEEN /hpf (None Seen); Mucous, Urine 0 SEEN /hpf (<or=2+); White Blood Cells 0 SEEN /hpf (0-5)
[2018-07-19 19:04] LABS: Color, Urine Straw (Yellow); Glucose, Dipstick 1000 mg/dl (Normal); Ketone-Dipstick Negative (Negative); Leukocyte Esterase-Dipstick 25 /ul (Negative); Nitrite-Dipstick Negative (Negative); Occult Blood-Urine 150 /ul (Negative); Protein-Dipstick Negative (Negative); Urine Bilirubin Dipstick Negative (Negative); Urine Clarity Clear (Clear); Urine Urobilinogen Normal (Normal)
[2018-07-19 19:19] LABS: Red Blood Cells-Urine 0-5 SEEN /hpf (0-5); Squamous Epithelial Cells - UA 0-5 SEEN /hpf (5-10)
[2018-07-19] MEDS: HYDROmorphone 0.5 MG/0.5 ML SYRINGE IV (19:39)
[2018-07-19 19:40] VITALS: BP 131/65; PULSE 62; RESP 16; O2SAT 98
--- NOTE | 2018-07-19 20:57 | ED.VISSUMM ---
- ER Visit Summary Date of Service: 07/19/18 Chief Complaint: Headache secondary to head trauma with nausea vomiting, left rib and left abdominal pain secondary to trauma History of Present Illness: The patient is a 53 F who had a mechanical fall. She fell down 5 steps. She hit her head. She reports being dazed with nausea and vomiting ?3. She complains of severe headache. She also complains of left rib cage pain and left upper quadrant abdominal pain. She is on no anticoagulant. She denies neck pain. Denies paresthesia, anesthesia motor weakness. She denies shortness of breath. She denies black or maroon stool. She denies blood in her urine. She did report blurred vision initially. Please read written note for complete detail Past medical history type 2 diabetes, hypertension, hypercholesteremia, renal calculi, and hypothyroidism. Physical Examination: Patient appears uncomfortable. Vital signs are marked for an elevated blood pressure 131/65. She is not hypoxic. Head is atraumatic normocephalic. Pupils are equal round reactive. Extraocular muscles are intact. TMs are pearly white with landmarks noted. Nares patent with no drainage. Posterior pharynx without erythema or exudate. Uvula is midline. There is no dysphonia or dysphasia. Trachea is midline. There is no stridor with auscultation of the neck. There are no clinical findings of basal skull fracture. There is no cervical spine tenderness. She has full active range of motion. Heart is regular without murmur, gallop or rub. S1 and S2 are normal. Lungs are clear to auscultation with good movement of air bilaterally. There is good movement of air bilaterally. She does have reproducible chest pain on the left. There is no crepitus subcutaneous air. She has significant pain left costal margin. There is no hepatosplenomegaly. There is no CVA tenderness noted. She complains of left inguinal pain. There is no pain the patient the pelvis. GCS is 15. Patient is alert and oriented ?3. Motor is 5/5. Sensation is intact. DTRs are symmetric without clonus or Babinski. Cranial nerves II through XII are intact. Finger to nose to finger was performed adequately. Test Results: CT of the head interpreted radiologist as negative. The CT was reviewed by me. CT of the abdomen and pelvis with IV contrast was reviewed by me and interpreted by radiologist as negative for acute pathology. CBC is unremarkable. Urine is remarkable for glucose. Basic metabolic panel is remarkable for glucose of 348 and a pseudohyponatremia, 132. Patient was initially medicated with 4 mg of Zofran and 4 mg morphine. She is reported no effect. She subsequently given Dilaudid with improvement. Emergency Department Course and Treatment: Since patient fell down 5 steps with head trauma with nausea and vomiting severe headache CT of the head was obtained. C-spine was cleared per Nexus criteria. Because she has significant tenderness over the left rib and specifically left costal margin in the area of the spleen CT of the abdomen pelvis was obtained to rule out splenic injury. Treatment Plan: Prescription for opiate analgesia since she is diabetic and NSAIDs would be contraindicated. Disposition: Discharged to home with appropriate home-going instructions Impression: 1. Closed head injury initial encounter 2. Left rib contusion initial encounter secondary to fall 3. Abdominal contusion secondary to fall initial encounter 4. Hyperglycemia type II diabetic This note was generated with Net[employer] dictation software. It may contain incorrect words, spelling, and punctuation that were not noted in review of the chart prior to signing ED Disposition - Plan for ED Patient: Disposition: Home or Assisted Living Chief Complaint: Fall Instructions: ED Mechanical Fall, ED Head Injury Closed, ED Contusion Rib, ED Hyperglycemia Diabetic Prescriptions: Hydrocodone Bitart/Apap 5-325 [[place] 5MG-325MG] 1 tablet PO Q6H PRN PRN 3 Days #10 tablet PRN Reason: Pain Referrals: Jeferson Valencia III, MD [Primary Care Provider] - 1 Week if not improving Additional Instructions: Your prescription was electronically transmitted to [facility]. You may feel worse in the next 24-48 hours. Apply ice to areas of discomfort for the first 3-5 days. You may hurt in more places and U presently do.
[2018-07-19 21:10] VITALS: BP 112/52; PULSE 61; RESP 16; O2SAT 97
== END 2018-07-19 21:12 | disposition home or self-care (01) ==
PROVIDERS: Emergency Provider Emergency Medicine; Family Provider Family Medicine; PCP Family Medicine
DX: S09.90XA Unspecified injury of head, initial encounter (principal); S20.212A Contusion of left front wall of thorax, initial encounter; S30.1XXA Contusion of abdominal wall, initial encounter; W10.9XXA Fall (on) (from) unspecified stairs and steps, initial encounter; Y93.9 Activity, unspecified; Y92.9 Unspecified place or not applicable; Y99.9 Unspecified external cause status; I10 Essential (primary) hypertension; E78.00 Pure hypercholesterolemia, unspecified; E03.9 Hypothyroidism, unspecified; E11.65 Type 2 diabetes mellitus with hyperglycemia; Z72.0 Tobacco use
CPT/HCPCS: 70450; 74177; 80048; 81001; 85025; 96374; 96375; 99283; J7040; Q9967; A4216; J2405

== ENCOUNTER 2018-07-24 19:48 | Emergency (ER) | payer MEDICAID, SELFPAY ==
[2018-07-24 19:50] VITALS: BP 121/71; PULSE 79; RESP 15; TEMP 37; O2SAT 99; BMI 31.4
--- NOTE | 2018-07-24 19:57 | ED.RN ---
PT REPORTS HEARING LEFT RIBS POP WHEN GETTING OUT OF BED YESTERDAY. THE PAIN IS WORSE, AND THE MEDICATION THEY GAVE ME ISN'T WORKING.
--- NOTE | 2018-07-24 20:17 | CT_ITS ---
STUDY: CT ABDOMEN AND PELVIS WITHOUT CONTRAST REASON FOR EXAM: Female, 53 years old. Fell down stairs. Rib pain. RADIATION DOSAGE (If Supplied By Facility): CTDIvol = ( 10.21 ) mGy, DLP = ( 515.32 ) mGycm TECHNIQUE: Transaxial images were obtained from the dome of the diaphragm to the symphysis pubis without oral contrast, and without intravenous contrast. Sagittal and coronal images were reconstructed. Individualized dose optimization techniques were used for this CT. COMPARISON: 07/19/2018. FINDINGS: There are mild fibroatelectatic changes in the left lung base. The visualized portions of the heart are within normal limits. Calcified granulomas are noted in the liver and spleen. Liver and spleen are otherwise unremarkable. There are surgical clips in the gallbladder fossa consistent with a prior cholecystectomy. Normal pancreas. Normal bilateral adrenal glands. Normal right kidney. Normal left kidney. The aorta is normal in caliber. There is no bowel obstruction or inflammatory change. The appendix is normal. Stool burden is moderate. There is no free fluid, free air, or organized collection. Bladder is not distended. There is a small fat-containing umbilical hernia. There is an acute, nondisplaced fracture of the posterior left 10th rib. CT/Abdomen/Pelvis without Cont IMPRESSION: 1. Left 10th rib fracture. 2. Old granulomatous disease. Electronically Signed: Mary Ellen Omalley MD at 21:05 EDT Tel , Service support ,
[2018-07-24] MEDS: HYDROcodone Bitartrate/Apap 5/325 Tablet PO ×2 (20:25→21:59)
[2018-07-24 20:34] LABS: Mucous, Urine 0 SEEN /hpf (<or=2+)
[2018-07-24 20:43] LABS: Color, Urine Yellow (Yellow); Glucose, Dipstick 1000 mg/dl (Normal); Ketone-Dipstick Negative (Negative); Leukocyte Esterase-Dipstick 25 /ul (Negative); Nitrite-Dipstick Negative (Negative); Occult Blood-Urine 250 /ul (Negative); Protein-Dipstick 15 mg/dl (Negative); Urine Bilirubin Dipstick Negative (Negative); Urine Clarity Clear (Clear); Urine Urobilinogen Normal (Normal)
[2018-07-24 20:50] LABS: Red Blood Cells-Urine > 100 SEEN /hpf (0-5); Squamous Epithelial Cells - UA 0-5 SEEN /hpf (5-10); White Blood Cells 0-5 SEEN /hpf (0-5)
[2018-07-24 20:51] LABS: Bacteria RARE /hpf (None Seen)
--- NOTE | 2018-07-24 21:42 | ED.VISSUMM ---
- ER Visit Summary Date of Service: 07/24/18 Chief Complaint: Rib pain History of Present Illness: The patient is a 53 F who fell down 5 steps on July 19. Patient was seen here and had a head CT and abdomen pelvis CT that were read as negative. Patient was sent home with [place]. She presents with continued left lower rib pain. She states she coughed or sneezed a day or 2 ago and had increased pain at that time. She also reports some intermittent hematuria. Physical Examination: Vital signs are unremarkable. Patient is lying in bed in no acute distress. She is uncomfortable. Head neck examination was no sign of trauma. Heart is regular rate and rhythm. Lung sounds are clear. She has significant tenderness to the left lower ribs, worse in the lateral and posterior region. Abdomen is tender in the left upper quadrant. No guarding or rebound. Test Results: CT flank was repeated today and does show a left 10th rib fracture. Old granulomatous disease is noted. Kidneys are normal. Urinalysis does confirm grade 100 RBCs with no sign of infection. Emergency Department Course and Treatment: Patient was given p.o. [place] here. On repeat evaluation she is resting more comfortably. I did discuss with her that she does have some hematuria from her fall, however there is no renal hematoma noted. She is to follow-up with her primary care physician this week for repeat exam and repeat urinalysis. She voices understanding and agreement. She will be given a new prescription for [place]. Treatment Plan: [] Disposition: Discharge Impression: 1. Left 10th rib fracture 2. Hematuria This note was generated with [employer] dictation software. It may contain incorrect words, spelling, and punctuation that were not noted in review of the chart prior to signing ED Disposition - Plan for ED Patient: Chief Complaint: Other, Pain/Inj Referrals: Jeferson Valencia III, MD [Primary Care Provider] -
--- NOTE | 2018-07-24 21:44 | ED.DEP ---
ED Disposition - Plan for ED Patient: Disposition: Home or Assisted Living Chief Complaint: Other, Pain/Inj Instructions: ED Fx Rib, ED Hematuria Prescriptions: Ondansetron [Zofran Odt] 4 mg PO Q8H PRN PRN #10 tablet PRN Reason: Nausea Hydrocodone/Acetaminophen [[place] 5-325 Tablet] 1 - 2 each PO 4X/DAY PRN PRN 3 Days #12 tablet PRN Reason: Pain Referrals: Jeferson Valencia III, MD [Primary Care Provider] - 3-5 Days
[2018-07-24 21:53] VITALS: BP 124/67; PULSE 61; RESP 16; O2SAT 97
[2018-07-24] MEDS: Ondansetron ODT 4 MG Tablet PO ×2 (21:58)
== END 2018-07-24 22:00 | disposition home or self-care (01) ==
PROVIDERS: Emergency Provider Emergency Medicine; Family Provider Family Medicine; PCP Family Medicine
DX: R07.81 Pleurodynia (principal); S22.32XD Fracture of one rib, left side, subsequent encounter for fracture with routine healing; W10.9XXD Fall (on) (from) unspecified stairs and steps, subsequent encounter; R31.9 Hematuria, unspecified; E11.9 Type 2 diabetes mellitus without complications; I10 Essential (primary) hypertension; E78.00 Pure hypercholesterolemia, unspecified; I25.2 Old myocardial infarction; Z86.73 Personal history of transient ischemic attack (TIA), and cerebral infarction without residual deficits; Z72.0 Tobacco use; Z79.4 Long term (current) use of insulin
CPT/HCPCS: 74176; 81001; 99283

== ENCOUNTER 2018-10-26 15:00 | Outpatient (RCR) | payer MEDICAID, SELFPAY ==
--- NOTE | 2018-10-03 18:23 | HP.PTEVAL_ITS ---
Patient's Visit Information SURI OCONNOR is a 53 year old F referred to Physical Therapy by Rosalio Burden DO with a diagnosis of OSTEOARTHRITIS MULTPLE JOINTS,CHRONIC PAIN SYMDOME,LUMBAR RADICULOPATHY. Date of Evaluation: 10/03/18 Physical Therapist: Maurice Aguayo PT, - Visit Plan Frequency: 2x /Week Duration: 4 Weeks Plan: Aquatic PT for lumbar ROM.strength shoulder hip /knee,flexablity,and DLS - Subjective Findings: This 53 y/o femle presents to physical therapy with mulptiple joiny arthritis, chronic pain,and lumbar radiculopathy. Patient has had chronic pain for many years. Patient located lumbar symmtrical and legs ,along with arthritic pain in shoulders and knees. Patient seen gareth Foster . Recommended MRI in lumbar .Patient has had prior PT many years ago. Patient has had prior epidural injections and cortizone injections. Patient has parathesia/tingling in legs. Symptoms worse standing/walking 20min ,siiting,bending ,lifting. Symptoms some better with MEDS.Coughing/sneezing increases symptoms . Patient has TEN unit,. Lilli/bladder -. Symptoms affect sleeping. Patient affects QOL and function. SOCIAL: . VOCATION: unemployed - Pain Bilateral Back Pain Intensity (Out of 10): 9 Pain Intensity Range: 10 Left Knee Pain Intensity (Out of 10): 8 Pain Intensity Range: 10 Bilateral Shoulder Pain Intensity (Out of 10): 10 Pain Intensity Range: 10 Bilateral Lower Extremity Pain Intensity (Out of 10): 8 Pain Intensity Range: 10 - Objective POSTURE:mild foward posture. GAIT: normal bud. NEURO: c/o parathesia/tingling legs ,reflexes L3-4,L4-5,L5-S1 1/3. PALAPTION: tender L-S. LUMBAR ROM: flexion mod loss,extension mod loss,side glides mod loss pain. MMT: quads/hams 4-/5,hip flexion 4-/5,ankle. AROM: 0-130 right,left 140 degrees supine flexion flexion. FLEXABLITY: hams mod ,piriormis mod loss. AROM: shoulder 150 degrees flexion/abduction. MMT: 4-/5 grossly RTC,deltiod pain - Special Tests L/S Slump test left side: Negative L/S Slump test right side: Negative L/S Left Straight Leg Raise: Negative L/S Right Straight Leg Raise: Negative Lumbar Standing: Flexion - Mechanical Response: No effect Lumbar Standing: Flexion - Symptoms During Testing: Increases Lumbar Standing: Flexion - Symptoms After Testing: Worse Lumbar Standing: Extension - Mechanical Response: No effect Lumbar Standing: Extension - Symptoms During Testing: Increases Lumbar Standing: Extension - Symptoms After Testing: Worse Lumbar Standing: Right Side Glides - Mechanical Response: No effect Lumbar Standing: Right Side [place] - Symptoms During Testing: Increases Lumbar Standing: Right Side [place] - Symptoms After Testing: Worse Lumbar Standing: Left Side [place] - Mechanical Response: No effect Lumbar Standing: Left Side [place] - Symptoms During Testing: Increases Lumbar Standing: Left Side [place] - Symptoms After Testing: Worse - Goals Goal 1:: Independant with Aquatic PT Goal Time Frame: 4-6 Weeks Goal 2:: Independant with posture for ADL'S Goal Time Frame: 4-6 Weeks Goal 3:: Decrease lumbar pain ,knee and shoulder pain by 40 to improve function Goal Time Frame: 4-6 Weeks Goal 4:: Patient to improve strength quads/hams ,shoulder 4/5 to improve function wth walking and standing. Goal Time Frame: 4-6 Weeks Goal 5:: Patient improve lumbar ROM for function of recovery Goal Time Frame: 4-6 Weeks Goal 6:: Patient to improve back owestry score by 5 points to improve function Goal Time Frame: 4-6 Weeks - Rehabilitation Potential Physical Therapy Diagnosis: This patient has chronic pain multiple joints ,chronic pain along with lumbar radiculopathy with poor ROM lumbar,weakness impairs ADL'S and function Rehabilitation Potential: Good - Anticipated Interventions Patient/Client Instruction: Educate patient on: Condition, Plan of Care For the Purpose of:: To decrease pain, To increase ROM, To improve muscle performance and motor function, To improve ability to perform ADL's, To improve performance and independence with ADL's, To improve ability of physical actions for home/community/work/leisure, To improve health of tissue, To decrease soft tissue restriction, To improve endurance, To reduce risk of recurrence, To improve ability to perform tasks related to life management Therapeutic Exercise to Include: Strength training, Endurance training, Postural training, Flexibilty training, In an aquatic setting, Active ROM, Dynamic Lumbar Stabilization Comment: UE/LE For the Purpose of:: To decrease pain, To increase ROM, To improve muscle performance and motor function, To improve ability to perform ADL's, To improve performance and independence with ADL's, To improve ability of physical actions for home/community/work/leisure, To improve health of tissue, To decrease soft tissue restriction, To reduce risk of recurrence, To improve ability to perform tasks related to life management Thank you for the opportunity to evaluate your patient. For Medicare and Medicare HMO plans, please review the plan of care and approve it. It will need to be FAXED BACK to us at [phone] for Medicare purposes. For Medicare only, by signing this I certify the plan of care. Please let me know if there are questions or concerns regarding this plan of care. Physician Signature: Date:
--- NOTE | 2019-01-25 09:38 | HP.PTDCNRP_ITS ---
HP - Discharge Summary (1) - Patient Information SURI OCONNOR was seen in my office for initial evaluation on 10/03/18. The following Plan of Care was established for this patient: Initial Frequency: 2x /Week Initial Duration: 4 Weeks - Anticipated Interventions Patient/Client Instruction: Educate patient on: Condition, Plan of Care For the Purpose of:: To decrease pain, To increase ROM, To improve muscle perfor sugar and motor function, To improve ability to perform ADL's, To improve performance and independence with ADL's, To improve ability of physical actions for home/community/work/leisure, To improve health of tissue, To decrease soft tissue restriction, To improve endurance, To reduce risk of recurrence, To improve ability to perform tasks related to life management Therapeutic Exercise to Include: Strength training, Endurance training, Postural training, Flexibilty training, In an aquatic setting, Active ROM, Dynamic Lumbar Stabilization For the Purpose of:: To decrease pain, To increase ROM, To improve muscle performance and motor function, To improve ability to perform ADL's, To improve performance and independence with ADL's, To improve ability of physical actions for home/community/work/leisure, To improve health of tissue, To decrease soft tissue restriction, To reduce risk of recurrence, To improve ability to perform tasks related to life management This patient was last seen in our office 10/26/18. Pertinent comments regarding their Physical therapy will appear below: This patient seen for PT for multiple arthritis ,lumbar radiculopathy for Aquatic PT fot ROM strength,LE,DLS,posture thus is d/c. At this point I will be discontinuing this patient from physical therapy. I would be happy to see this patient again in the future if found appropriate by the physician. Thank you! Maurice Aguayo, PT, Cert MDT, OCS
== END 2018-10-26 19:00 | disposition home or self-care (01) ==
LOC: PT 15:00
PROVIDERS: Family Provider Family Medicine; PCP Family Medicine; Referring Provider Anesthesiology Pain Medicine; Visit Provider Anesthesiology Pain Medicine
DX: M15.9 Polyosteoarthritis, unspecified (principal); G89.4 Chronic pain syndrome; M54.16 Radiculopathy, lumbar region
CPT/HCPCS: 97113; 97162

== ENCOUNTER 2018-11-01 16:29 | Emergency (ER) | payer MEDICAID, SELFPAY ==
[2018-11-01 16:30] VITALS: BP 165/85; PULSE 111; RESP 16; TEMP 36.9; O2SAT 99; BMI 32.5
--- NOTE | 2018-11-01 16:51 | CT_ITS ---
STUDY: CT ABDOMEN AND PELVIS WITHOUT CONTRAST REASON FOR EXAM: Female, 53 years old. Left flank pain. RADIATION DOSAGE (If Supplied By Facility): CTDIvol = ( 12.55 ) mGy, DLP = ( 592.48 ) mGycm TECHNIQUE: Transaxial images were obtained from the dome of the diaphragm to the symphysis pubis without oral contrast, and without intravenous contrast. Sagittal and coronal images were reconstructed. Individualized dose optimization techniques were used for this CT. COMPARISON: 07/24/2018 FINDINGS: Evaluation of the abdominal viscera is limited in the absence of intravenous contrast. The visualized lung bases are clear. The visualized portions of the heart and pericardium are within normal limits. The patient is status post cholecystectomy. There are is a stable calcified granuloma in the liver. The liver otherwise demonstrates an unremarkable unenhanced appearance. The spleen is normal in size. There are stable splenic granulomata. The pancreas demonstrates an unremarkable unenhanced appearance. The adrenal glands are within normal limits. There are no renal or ureteral stones. There is no hydronephrosis. Normal visualized stomach. There is no bowel obstruction or inflammation. The appendix is visualized and appears normal. There is a stable small fat-containing ventral hernia. There is no bowel containing hernia. The aorta is normal in caliber. There is no abdominal or pelvic free air, free fluid, fluid collection or lymphadenopathy. There are no destructive osseous lesions. CT/Abdomen/Pelvis without Cont IMPRESSION: No acute abdominal or pelvic pathology demonstrated on this noncontrast CT. Electronically Signed: Michael Cortez, at 18:06 EST Tel , Service support ,
[2018-11-01] MEDS: Ondansetron 4 MG/2 ML Vial IV (17:10)
[2018-11-01] MEDS: Morphine 2 MG/ML Syringe IV (17:10)
[2018-11-01 17:22] LABS: Bacteria 0 SEEN /hpf (None Seen); Mucous, Urine 0 SEEN /hpf (<or=2+); White Blood Cells 0 SEEN /hpf (0-5)
[2018-11-01 17:30] LABS: Color, Urine Yellow (Yellow); Glucose, Dipstick 1000 mg/dl (Normal); Ketone-Dipstick Negative (Negative); Leukocyte Esterase-Dipstick Negative /ul (Negative); Nitrite-Dipstick Negative (Negative); Occult Blood-Urine 250 /ul (Negative); Protein-Dipstick Negative (Negative); Specific Gravity, Urine 1.015 (1.002-1.030); Urine Bilirubin Dipstick Negative (Negative); Urine Clarity Clear (Clear); Urine Urobilinogen Normal (Normal)
[2018-11-01 17:30] LABS: Absolute Lymphocyte Count 3.24 X10^3/ul (0.83-4.51); Absolute Neutrophil Count 5.1 X10^3/uL (2.0-7.7); Basophil# 0.06 X10^3/uL; Basophil% 0.7 % (0-1); Eosinophil# 0.04 X10^3/uL; Eosinophils% 0.5 % (0-5); Hematocrit 41.8 % (37-47); Hemoglobin 13.7 g/dl (12.0-15.0); Lymphocyte # 3.24 X10^3/ul (4.0); Lymphocyte % 37.1 % (19-41); Mean Corp Hgb Conc 32.8 g/gl (32-36); Mean Corpuscular Hgb 29.5 pg (27.0-32.0); Mean Corpuscular Volume 89.9 fL (81-99); Monocyte# 0.26 X10^3/uL; Neutrophil # 5.13 X10^3/uL (2.7-7.7); Neutrophil % 58.6 % (47-70); Platelet Count 239 K/mm3 (150-450); RBC Distribution Width CV 13.1 % (11.6-14.6); RBC Distribution Width SD 42.3 fl (35.1-43.9); Red Blood Count 4.65 M/mm3 (4.2-5.4); White Blood Count 8.7 K/mm3 (4.4-11.0)
[2018-11-01 17:32] LABS: POSITIVE COUNT NO; POSITIVE DIFFERENTIAL NO; POSITIVE MORPHOLOGY NO
[2018-11-01 17:38] LABS: Red Blood Cells-Urine 50-100 SEEN /hpf (0-5)
[2018-11-01 17:39] LABS: Squamous Epithelial Cells - UA 0-5 SEEN /hpf (5-10)
[2018-11-01 17:41] LABS: Anion Gap 11 (5-15); BUN 15 mg/dL (7-18); BUN/Creat Ratio 11.9 RATIO (10-20); Calcium,Total 8.8 mg/dL (8.5-10.1); Chloride 94 mmol/L (98-107); Creatinine, Serum 1.26 mg/dL (0.55-1.02); EST Glomerular Filtration Rate 47 mL/min (>60); Est Glom Filt Rate - Afr Amer 57 mL/min (>60); Estimated Creatinine Clearance 36.24 ml/min; Glucose 559 mg/dL (74-106); Potassium 3.9 mmol/L (3.5-5.1); Sodium Level 129 mmol/L (136-145)
[2018-11-01] MEDS: Insulin Lispro 100 UNIT/ML INSULN.PEN 10 UNIT SC (18:26)
--- NOTE | 2018-11-01 18:34 | ED.DCSUM_ITS ---
- ER Visit Summary Date of Service: 11/01/18 Chief Complaint: Left flank pain History of Present Illness: The patient is a 53 F who presents with left flank pain that began yesterday and became worse today. Patient describes the pain as stabbing. Patient states the pain starts in the left flank and radiates around to the left mid abdomen. Patient states nothing seems to make it better or worse. Patient states she does have a history of kidney stones. Patient denies any dysuria but admits to some hematuria. Patient denies any headaches. Patient denies any rashes. Physical Examination: Vital signs are stable except for mild tachycardia of 111. Patient is afebrile. Patient is in no acute distress. Oral mucosa is pink and moist. Neck is supple. Trachea is midline. There is no JVD noted. Heart was regular rate and rhythm. Lungs are clear and equal bilaterally. Abdomen is soft. There is some mild left lower quadrant tenderness. There is no rebound or guarding. There is also some left CVA tenderness. Cranial nerves II through XII are intact. There are no focal motor or sensory deficits noted. Test Results: CT scan of the abdomen and pelvis was obtained and was negative. Urinalysis shows occult blood of 250 with 50-100 red blood cells. Glucose was 1000 in the urine. Basic metabolic profile showed an elevated glucose of 559. Creatinine was slightly elevated at 1.26. CBC was normal. Emergency Department Course and Treatment: Patient was given a dose of Humalog here. Patient was also given morphine and Zofran initially. Repeat BGT was obtained and was 396. Patient was feeling better on reevaluation. Patient was instructed to follow-up with her primary care physician in 5-7 days. Patient understood and was agreeable with the plan. All questions were answered. Disposition: Discharge home Impression: 1. Left flank pain 2. Hyperglycemia This note was generated with [employer] software. It may contain incorrect words, spelling, and punctuation that were not noted in review of the chart prior to signing ED Disposition - Plan for ED Patient: Disposition: Home or Assisted Living Chief Complaint: Flank Pain Diagnosis: Acute left flank pain, Hyperglycemia Instructions: ED Hyperglycemia Diabetic, ED Flank Pain Uncertain Cause Referrals: Jeferson Valencia III, MD [Primary Care Provider] -
[2018-11-01 19:06] VITALS: BP 132/64; PULSE 70; RESP 16; O2SAT 96
[2018-11-01 19:22] LABS: Bedside Glucose 396 mg/dL (70-110)
[2018-11-01 20:10] VITALS: BP 131/78; PULSE 78; RESP 16; O2SAT 97
== END 2018-11-01 20:11 | disposition home or self-care (01) ==
PROVIDERS: Emergency Provider Emergency Medicine; Family Provider Family Medicine; PCP Family Medicine
DX: R10.9 Unspecified abdominal pain (principal); E11.65 Type 2 diabetes mellitus with hyperglycemia; Z87.442 Personal history of urinary calculi; E03.9 Hypothyroidism, unspecified
CPT/HCPCS: 74176; 80048; 81001; 82962; 85025; 96374; 96375; 99284; A4216; J2405

== ENCOUNTER 2018-12-01 15:51 | Emergency (ER) | payer MEDICAID, SELFPAY ==
[2018-12-01 15:51] VITALS: BP 142/78; PULSE 100; RESP 18; TEMP 36.2; O2SAT 98; BMI 32.4
[2018-12-01 17:10] LABS: Bacteria 0 SEEN /hpf (None Seen); Mucous, Urine 0 SEEN /hpf (<or=2+)
[2018-12-01 17:16] LABS: Color, Urine Straw (Yellow); Glucose, Dipstick 1000 mg/dl (Normal); Ketone-Dipstick Negative (Negative); Leukocyte Esterase-Dipstick Negative /ul (Negative); Nitrite-Dipstick Negative (Negative); Occult Blood-Urine 250 /ul (Negative); Protein-Dipstick Negative (Negative); Urine Bilirubin Dipstick Negative (Negative); Urine Clarity Clear (Clear); Urine Urobilinogen Normal (Normal)
[2018-12-01 17:34] LABS: Squamous Epithelial Cells - UA 0-5 SEEN /hpf (5-10)
[2018-12-01 17:36] LABS: Red Blood Cells-Urine 10-25 SEEN /hpf (0-5); White Blood Cells 0-5 SEEN /hpf (0-5)
--- NOTE | 2018-12-01 18:12 | CT_ITS ---
STUDY: CT ABDOMEN AND PELVIS WITHOUT CONTRAST REASON FOR EXAM: Female, 53 years old. Right flank pain, hematuria. RADIATION DOSAGE (If Supplied By Facility): CTDIvol = ( 13.07 ) mGy, DLP = ( 630.29 ) mGycm TECHNIQUE: Transaxial images were obtained from the dome of the diaphragm to the symphysis pubis without oral contrast, and without intravenous contrast. Sagittal and coronal images were reconstructed. Individualized dose optimization techniques were used for this CT. COMPARISON: Unremarkable CT abdomen and pelvis November 01, 2018. FINDINGS: The visualized lung bases are unremarkable. The heart size is normal. Stable minor thickening of the anterior pericardium. There is hepatomegaly, the right lobe measuring 23 cm in height. Stable calcified granulomata in the liver. The portal vein diameter is 15 mm. There is non-visualization of the gallbladder, which may be secondary to either contraction or a prior cholecystectomy. The diameter of the common bile duct reaches 8 mm. Normal size spleen. Subcentimeter splenic calcified granuloma again noted. Normal pancreas. Normal bilateral adrenal glands. Normal right kidney. Normal left kidney. No hydronephrosis. Normal visualized stomach. Normal small intestine. Normal colon. The appendix is visualized and appears normal. There is atherosclerotic calcification of the distal abdominal aorta and proximal iliac arteries, without a demonstrated aneurysm. Normal inferior vena cava. Normal retroperitoneum. Normal urinary bladder. There is atrophy of the uterus. Stable 2.4 x 3.3 cm anterior abdominal wall defect at the level of the umbilicus, allowing for stable hernia of fat measuring 4.5 x 2.7 x 3.3 cm. There are stable multilevel degenerative changes of the visualized spine. CT/Abdomen/Pelvis without Cont IMPRESSION: 1. No nephrolithiasis or hydronephrosis. Urinary bladder is unremarkable. 2. The gallbladder is not visualized, and may be surgically absent. 3. Stable hepatomegaly. 4. Aortoiliac atherosclerotic calcific plaquing again noted. No demonstrated aneurysm. 5. Stable 4 cm fat filled umbilical hernia. Electronically Signed: Clay George MD at 19:07 EST , Service support ,
--- NOTE | 2018-12-01 18:13 | ED.VISSUMM ---
- ER Visit Summary Date of Service: 12/01/18 Chief Complaint: Right flank pain History of Present Illness: The patient is a 53 F right flank pain radiating to right groin for the past week. Nausea without vomiting. Hematuria with urine frequency. No dysuria. No fever, chills, sweats. History of multiple kidney stones in the past followed by Dr. Pichardo. A year ago was the last one requiring ureteral stent. Has also required lithotripsy in the past. Chronic back pain on pain medicines which is not helping pains currently 9 out of 10. Physical Examination: General: Alert and oriented ?3, uncomfortable HEENT: Normocephalic, atraumatic. Moist mucosa membranes Neck: supple, nontender. Cardiovascular: Regular rate and rhythm, no murmurs Respiratory: Normal breath sounds, symmetric, no distress Back: Right CVA tenderness mild with no rash. Abdomen: Soft, nontender, nondistended Extremities: Nontender, no edema, pulses intact ?4 Neuro: no focal neurological deficits. Test Results: UA: Hematuria. WBC 8.2, hemoglobin 13.6 per creatinine 1.18. 5, anion gap 11. Flank CT stable hernia, no obstructive uropathy Emergency Department Course and Treatment: Patient urine obtained in triage no hematuria. Renal stone protocol initiated with her history. Morphine Zofran fluids. Labs stable except for glucose 465 her anion gap was 11. Flank CT stable hernia with no obstructive uropathy. Discussed findings with patient with her flank pain unclear etiology. She monitor for any rash. Additional pain medicines given the ED she is sees pain management for her back pain does have oxycodone IR at home. Prescription for Zofran. With her glucose was given insulin in the ED. She will monitor at home follow-up with her PCP and urologist. Treatment Plan: [] Disposition: Discharge Impression: 1. Right flank pain 2. Hematuria 3. Hyperglycemia This note was generated with [employer] dictation software. It may contain incorrect words, spelling, and punctuation that were not noted in review of the chart prior to signing ED Disposition - Plan for ED Patient: Disposition: Home or Assisted Living Diagnosis: Right flank pain, Hematuria, Hyperglycemia Instructions: ED Flank Pain Uncertain Cause, ED Hematuria, ED Hyperglycemia Diabetic Prescriptions: Ondansetron [Zofran Odt] 4 mg PO Q8H PRN PRN #10 tablet PRN Reason: Nausea Referrals: Jeferson Valencia III, MD [Primary Care Provider] - 3-5 Days Lio Pichardo MD [STAFF PHYSICIAN] - 3-5 Days
[2018-12-01] MEDS: morphine 8 MG/ML Syringe IV (18:28)
[2018-12-01] MEDS: 0.9% Normal Saline 1,000 ML 250 ML IV (18:28)
[2018-12-01] MEDS: Ondansetron 4 MG/2 ML Vial IV (18:28)
[2018-12-01 18:30] VITALS: BP 138/70; PULSE 98; RESP 14; O2SAT 97
[2018-12-01 18:53] LABS: Absolute Lymphocyte Count 2.76 X10^3/ul (0.83-4.51); Basophil# 0.04 X10^3/uL; Basophil% 0.5 % (0-1); Eosinophil# 0.03 X10^3/uL; Eosinophils% 0.4 % (0-5); Hematocrit 40.8 % (37-47); Hemoglobin 13.6 g/dl (12.0-15.0); Lymphocyte # 2.76 X10^3/ul (4.0); Lymphocyte % 33.6 % (19-41); Mean Corp Hgb Conc 33.3 g/gl (32-36); Mean Corpuscular Hgb 29.9 pg (27.0-32.0); Mean Corpuscular Volume 89.7 fL (81-99); Mean Platelet Vol. 9.9 fl (6.2-12.0); Monocyte# 0.36 X10^3/uL; Monocyte% 4.4 % (0-10); Neutrophil % 60.9 % (47-70); Platelet Count 246 K/mm3 (150-450); RBC Distribution Width CV 13.3 % (11.6-14.6); Red Blood Count 4.55 M/mm3 (4.2-5.4); White Blood Count 8.2 K/mm3 (4.4-11.0)
[2018-12-01 19:01] LABS: POSITIVE COUNT NO; POSITIVE DIFFERENTIAL NO; POSITIVE MORPHOLOGY NO
[2018-12-01 19:16] LABS: Anion Gap 11 (5-15); BUN 16 mg/dL (7-18); BUN/Creat Ratio 13.6 RATIO (10-20); Calcium,Total 8.4 mg/dL (8.5-10.1); Chloride 96 mmol/L (98-107); Creatinine, Serum 1.18 mg/dL (0.55-1.02); EST Glomerular Filtration Rate 51 mL/min (>60); Est Glom Filt Rate - Afr Amer 61 mL/min (>60); Estimated Creatinine Clearance 38.69 ml/min; Glucose 465 mg/dL (74-106); Potassium 3.9 mmol/L (3.5-5.1); Sodium Level 130 mmol/L (136-145)
[2018-12-01] MEDS: morphine 10 MG/ML Syringe IV (20:27)
[2018-12-01] MEDS: Insulin Lispro 100 UNIT/ML INSULN.PEN 10 UNIT SC (20:29)
[2018-12-01 21:06] VITALS: BP 116/58; PULSE 81; RESP 16; O2SAT 98
[2018-12-01 21:17] LABS: Bedside Glucose 369 mg/dL (70-110)
== END 2018-12-01 21:14 | disposition home or self-care (01) ==
PROVIDERS: Emergency Provider Emergency Medicine; Family Provider Family Medicine; PCP Family Medicine
DX: R10.9 Unspecified abdominal pain (principal); R31.9 Hematuria, unspecified; E11.65 Type 2 diabetes mellitus with hyperglycemia; I10 Essential (primary) hypertension; Z72.0 Tobacco use; G89.29 Other chronic pain; M54.9 Dorsalgia, unspecified; Z87.442 Personal history of urinary calculi
CPT/HCPCS: 74176; 80048; 81001; 82962; 85025; 96361; 96374; 96375; 96376; 99283; J7030; J2405

== ENCOUNTER 2019-01-08 17:02 | Emergency (ER) | payer MEDICAID, SELFPAY ==
[2019-01-08 17:03] VITALS: BP 149/46; PULSE 90; RESP 18; TEMP 35.7; O2SAT 100; BMI 33.6
--- NOTE | 2019-01-08 17:15 | RAD_ITS ---
STUDY: X-RAY - UNILATERAL RIBS ( LEFT ) WITH CHEST REASON FOR EXAM: Female, 53 years old. Fell and injured left chest today TECHNIQUE - RIBS: 4 view(s) of the ribs. TECHNIQUE - CHEST: 1 view frontal COMPARISON: November 27, 2015 chest x-ray FINDINGS - RIBS: Normal visualized ribs without a demonstrated fracture. FINDINGS - CHEST: The lungs are clear and expanded. There is no demonstrated pleural abnormality. Normal size heart. Normal mediastinum and adryan. Normal visualized pulmonary arteries. Normal visualized aortic arch and descending thoracic aorta. Normal visualized thoracic spine. Normal visualized ribs, clavicles, and shoulders. There is no demonstrated abnormality of the visualized soft tissue structures of the upper abdomen. RAD/Ribs Uni Min 3V w/PA Chest IMPRESSION: RIBS: Normal x-ray examination of the ribs. CHEST: Normal x-ray examination of the chest. Electronically Signed: Dayday Degroot MD at 18:57 EDT , Service support ,
--- NOTE | 2019-01-08 17:15 | RAD_ITS ---
STUDY: X-RAY - LEFT SHOULDER REASON FOR EXAM: Female, 53 years old. Left shoulder pain status post fall x1 day TECHNIQUE: 4 view(s) of the shoulder. COMPARISON: None. FINDINGS: Normal glenohumeral articulation. Normal acromioclavicular joint. Normal acromion. Normal humeral head and visualized proximal humerus. The soft tissue structures are unremarkable. Normal visualized pulmonary apex. RAD/Shoulder min 2 Views IMPRESSION: Normal x-ray examination of the shoulder. Electronically Signed: Dayday Degroot MD at 19:04 EDT , Service support ,
[2019-01-08] MEDS: oxyCODONE 5 MG Tablet PO (18:13)
--- NOTE | 2019-01-08 18:21 | ED.DCSUM_ITS ---
- ER Visit Summary Date of Service: 01/08/19 Chief Complaint: [Fall with injury to left shoulder and left ribs] History of Present Illness: The patient is a 53 F [presents to the emergency department after sustaining a fall yesterday. Patient states that she was feeding her chickens when she slipped on the muddy ground and landed on her left shoulder and left ribs. Patient complaining of pain with movement of the left shoulder and with breathing. Patient denies shortness of breath. She denies striking her head. No loss of consciousness. She denies any neck pain. She denies any abdominal pain. Patient is right-hand dominant. Patient has history of diabetes, hypothyroidism, and chronic back pain] Physical Examination: [HEENT-PERRLA, EOMI. Cranial nerves II through XII grossly intact. TMs clear. Mucous membranes moist. No adenopathy. Cardiovascular-regular rate and rhythm without murmur or ectopy Lungs-clear to auscultation, chest wall stable without crepitus or subcu emphysema. Patient has tenderness to palpation over the left lower ribs in the mid axillary line and posteriorly. No ecchymosis or bruising is noted to the chest wall. Abdomen-normoactive bowel sounds, soft, nontender, no rebound or rigidity, no peritoneal signs. Extremities-intact ?4, normal range of motion, normal pulses, atraumatic. Left shoulder-patient has diffuse tenderness about the glenohumeral joint. Patient has good range of motion of the glenohumeral joint and there is no obvious deformity. There is no ecchymosis or bruising. She is neurovascular intact distally. Patient is able to abduct the arm to 90 degrees and is able to resist abduction.] Test Results: [X-rays of the ribs were negative for fracture or pneumothorax. X-rays of the left shoulder obtained were negative for fracture.] Emergency Department Course and Treatment: [Patient was given a sling and 1 OxyIR p.o.] Treatment Plan: [Patient will be given a sling and advised to follow-up with primary care physician within next 5-7 days.] Disposition: [Discharged home in stable condition] Impression: [Mechanical fall Left chest wall contusion Left shoulder sprain-possible internal derangement] This note was generated with [employer] software. It may contain incorrect words, spelling, and punctuation that were not noted in review of the chart prior to signing ED Disposition - Plan for ED Patient: Referrals: Jeferson Valencia III, MD [Primary Care Provider] -
--- NOTE | 2019-01-08 19:05 | ED.DEP ---
ED Disposition - Plan for ED Patient: Instructions: ED Mechanical Fall, ED Sprain Shoulder, ED Contusion Chest Wall Prescriptions: Oxycodone HCl/Acetaminophen [Percocet 5/325] 1 tab PO Q6H PRN PRN 3 Days #12 tab PRN Reason: Pain Referrals: Jeferson Valencia III, MD [Primary Care Provider] - 5-7 Days
[2019-01-08 19:12] VITALS: BP 142/80; PULSE 78; RESP 18; O2SAT 95
== END 2019-01-08 19:13 | disposition home or self-care (01) ==
LOC: ED 17:38
PROVIDERS: Emergency Provider Emergency Medicine; Family Provider Family Medicine; PCP Family Medicine
DX: S20.212A Contusion of left front wall of thorax, initial encounter (principal); S43.402A Unspecified sprain of left shoulder joint, initial encounter; W01.0XXA Fall on same level from slipping, tripping and stumbling without subsequent striking against object, initial encounter; Y93.89 Activity, other specified; Y92.89 Other specified places as the place of occurrence of the external cause; Y99.9 Unspecified external cause status; G89.29 Other chronic pain; M54.9 Dorsalgia, unspecified; E03.9 Hypothyroidism, unspecified; E11.9 Type 2 diabetes mellitus without complications; Z72.0 Tobacco use
CPT/HCPCS: 71101; 73030; 99283

== ENCOUNTER 2019-01-12 18:55 | Emergency (ER) | payer MEDICAID, SELFPAY ==
[2019-01-12 18:56] VITALS: BP 144/71; PULSE 77; RESP 16; TEMP 36.8; O2SAT 99; BMI 32.8
--- NOTE | 2019-01-12 19:15 | ED.VISSUMM ---
- ER Visit Summary Date of Service: 01/12/19 Chief Complaint: Left-sided rib pain History of Present Illness: The patient is a [address] Jeferson Valencia III and until last month had seen Dr. Richards out of [place] for pain management. Patient reports that 5 days ago she slipped on mud in the backyard and fell onto her left ribs. She was seen in emerge department 4 days ago and had x-rays that were negative. She reports that she was discharged with Percocet and that she is out of this. She complains of a sharp pain is 10 out of 10 at worst 9-10 currently. Is worsened by standing. She taken Tylenol and ibuprofen without relief. She denies any shortness of breath. Physical Examination: Vitals: Stable. Afebrile. General: Well-nourished and well-developed. Head: Normocephalic atraumatic. Neck: Supple, no lymphadenopathy. No JVD. Nontender. Cardiovascular: Regular rate and rhythm. No murmurs. Respiratory: No respiratory distress. Clear to auscultation bilaterally. Moderate tenderness palpation over the lower ribs on the left. No crepitus. Abdominal: Soft, nontender, nondistended, normal bowel sounds. No guarding, rebound, or peritoneal signs. Back: Nontender. Extremities: Nontender, no edema. Skin: Normal color, no rash. Neurologic: Alert and oriented ?3. Cranial nerves II through XII are intact. Normal strength and sensation. Psych: Normal affect. Emergency Department Course and Treatment: An [facility] report was obtained which shows that her last prescription from pain management was December 09 and it was for 120 10 mg oxycodone. She should have run out of this January 06. She has had a prescription for 12 Percocet since then. I had a prolonged discussion with the patient that I do not feel comfortable keeping treating her with opiate-based medications. She reports that she has an appointment to see Dr. Renteria January 25. Treatment Plan: Patient will be discharged instructed use Tylenol and ibuprofen for pain. Follow-up with Dr. Jeferson Valencia iii to see if he is comfortable prescribing her opiate-based pain medications while she waits to get into a new pain management doctor. Disposition: To home in improved and stable condition. Impression: 1. Chest wall pain. This note was generated with [employer] software. It may contain incorrect words, spelling, and punctuation that were not noted in review of the chart prior to signing ED Disposition - Plan for ED Patient: Disposition: Home or Assisted Living Instructions: ED Contusion Chest Wall Referrals: Jeferson Valencia III, MD [Primary Care Provider] - 1 Week if not improving
[2019-01-12] MEDS: Acetaminophen 325 MG Tablet 1000 MG PO (19:23)
[2019-01-12 19:27] VITALS: RESP 18
== END 2019-01-12 19:31 | disposition home or self-care (01) ==
LOC: ED 19:20
PROVIDERS: Emergency Provider Emergency Medicine; Family Provider Family Medicine; PCP Family Medicine
DX: R07.89 Other chest pain (principal); R11.0 Nausea; E11.9 Type 2 diabetes mellitus without complications; E03.9 Hypothyroidism, unspecified; M54.9 Dorsalgia, unspecified; G89.29 Other chronic pain; F17.210 Nicotine dependence, cigarettes, uncomplicated
CPT/HCPCS: 99283

== ENCOUNTER 2019-02-07 23:21 | Emergency (ER) | payer MEDICAID, SELFPAY ==
[2019-02-07 23:22] VITALS: BP 157/83; PULSE 92; RESP 16; TEMP 35.5; O2SAT 98; BMI 34.5
[2019-02-08 00:08] LABS: Mucous, Urine 0 SEEN /hpf (<or=2+); White Blood Cells 0 SEEN /hpf (0-5)
[2019-02-08 00:13] LABS: Absolute Neutrophil Count 3.6 X10^3/uL (2.0-7.7); Basophil# 0.05 X10^3/uL; Basophil% 0.7 % (0-1); Color, Urine Straw (Yellow); Eosinophil# 0.06 X10^3/uL; Eosinophils% 0.8 % (0-5); Glucose, Dipstick 1000 mg/dl (Normal); Hematocrit 39.8 % (37-47); Hemoglobin 13.8 g/dl (12.0-15.0); Ketone-Dipstick Negative (Negative); Leukocyte Esterase-Dipstick Negative /ul (Negative); Lymphocyte % 45.6 % (19-41); Mean Corp Hgb Conc 34.7 g/gl (32-36); Mean Corpuscular Hgb 30.7 pg (27.0-32.0); Mean Corpuscular Volume 88.4 fL (81-99); Mean Platelet Vol. 10.2 fl (6.2-12.0); Monocyte# 0.44 X10^3/uL; Monocyte% 5.7 % (0-10); Neutrophil # 3.62 X10^3/uL (2.7-7.7); Neutrophil % 47.1 % (47-70); Nitrite-Dipstick Negative (Negative); Occult Blood-Urine 250 /ul (Negative); Platelet Count 236 K/mm3 (150-450); Protein-Dipstick Negative (Negative); RBC Distribution Width SD 41.4 fl (35.1-43.9); Urine Bilirubin Dipstick Negative (Negative); Urine Clarity Cloudy (Clear); Urine Urobilinogen Normal (Normal); White Blood Count 7.7 K/mm3 (4.4-11.0)
[2019-02-08 00:16] LABS: POSITIVE COUNT NO; POSITIVE DIFFERENTIAL NO; POSITIVE MORPHOLOGY NO
[2019-02-08 00:22] LABS: Bacteria RARE /hpf (None Seen); Red Blood Cells-Urine 25-50 SEEN /hpf (0-5); Squamous Epithelial Cells - UA 5-10 SEEN /hpf (5-10)
[2019-02-08 01:28] LABS: Anion Gap 12 (5-15); BUN 14 mg/dL (7-18); Chloride 94 mmol/L (98-107); Potassium 3.9 mmol/L (3.5-5.1); Sodium Level 129 mmol/L (136-145)
[2019-02-08 01:29] LABS: BUN/Creat Ratio 11.8 RATIO (10-20); Calcium,Total 8.9 mg/dL (8.5-10.1); Creatinine, Serum 1.19 mg/dL (0.55-1.02); EST Glomerular Filtration Rate 50 mL/min (>60); Est Glom Filt Rate - Afr Amer 61 mL/min (>60); Estimated Creatinine Clearance 38.37 ml/min
[2019-02-08 01:30] LABS: Glucose 565 mg/dL (74-106)
--- NOTE | 2019-02-08 01:30 | CT_ITS ---
HISTORY: RT FLANK PAIN EXAMINATION: CT Abdomen And Pelvis W/O Contrast TECHNIQUE: Helically acquired images were obtained of the abdomen and pelvis without oral or IV contrast as per renal stone protocol. A radiation dose optimization technique was used for this scan. IV Contrast dosage and agent: None. Oral contrast: None. COMPARISON: 11/01/2018 and 07/19/2018 FINDINGS: With comparison of previous, no significant change. Lower thorax: No pleural effusion or pericardial effusion. Right basilar tiny calcified granuloma and additional calcified granulomas within the liver and spleen. 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 In addition, generalized hepatomegaly without significant change. Nonvisualization of the gallbladder. No biliary dilatation. Spleen is not enlarged. Normal pancreas. Both kidneys are normal in position. No renal or ureteral calculi and no hydronephrosis or hydroureter. Adrenal glands are not enlarged. Abdominal aorta is atherosclerotic and is normal in caliber. No ascites or retroperitoneal lymph node enlargement. GI tract: No obstruction. Normal appendix. Pelvis: Urinary bladder is well distended with estimated volume of 360 cc. Retroverted uterus which appears mildly atrophic. No free fluid or lymph node enlargement. Ventral abdominal Wall: Fat-containing umbilical hernia, unchanged. Bones: No acute osseous abnormality. CT/Abdomen/Pelvis without Cont IMPRESSION: 1. No acute disease or significant change. No hydronephrosis or urolithiasis identified. 2. Hepatomegaly together with developmental Sixto's lobe. 3. Fat-containing umbilical hernia, unchanged. 4. Old, healed granulomatous disease. Individualized dose optimization techniques were used for this CT. at 0307 Reported and signed by: Claude Peacock MD Electronically Signed: Claude Peacock, at 3:06 EDT Tel , Service support ,
[2019-02-08] MEDS: Ketorolac 30 MG/ML Syringe IV (01:52)
[2019-02-08] MEDS: Insulin Lispro 100 UNIT/ML INSULN.PEN 12 UNIT SC (01:52)
[2019-02-08] MEDS: Ondansetron 4 MG/2 ML Vial IV (01:52)
[2019-02-08] MEDS: 0.9% Normal Saline 1,000 ML 999 ML IV ×2 (01:52→03:14)
[2019-02-08 01:59] VITALS: BP 147/92; PULSE 61; RESP 16; O2SAT 97
--- NOTE | 2019-02-08 03:24 | ED.DCSUM_ITS ---
- ER Visit Summary Date of Service: 02/08/19 Chief Complaint: Flank pain History of Present Illness: The patient is a 53 F who presents with flank pain. She complains of right-sided back and flank pain radiating around to the right lower quadrant. She reports hematuria. She rates her pain is severe at 9 out of 10. It is sharp. She reports nausea without vomiting. He has had some loose stools today as well. No fever. She does report history of prior kidney stones. Physical Examination: Afebrile vitals unremarkable No distress Moist mucous membranes Heart regular rate and rhythm Lungs are clear Abdomen soft nondistended she does have some right lower quadrant tenderness w ithout guarding without rebound Right CVA tenderness Alert Test Results: Urinalysis shows 250 blood, 25-50 RBCs, 5-10 epithelials. Sodium 129 but glucose 565. Anion gap normal. CBC normal. CT of the abdomen and pelvis shows no acute disease. Emergency Department Course and Treatment: Patient was treated with IV fluids Toradol and Zofran. She requested IV narcotics multiple times. Patient has had multiple similar prior presentations with unremarkable CTs of the abdomen and unclear pathology. Therefore I do not feel IV narcotics were indicated as it appears to be a chronic recurrent issue. Her blood sugar was elevated at 565. She was treated with IV fluids and subcutaneous insulin and blood sugar improved to 300s on reevaluation. At this time she does not appear to have serious or life-threatening pathology. There is no indication for hospitalization. She was advised to follow-up as an outpatient. Patient discharged. Treatment Plan: [] Disposition: Discharge Impression: Right flank pain Hematuria Hyperglycemia This note was generated with [employer] dictation software. It may contain incorrect words, spelling, and punctuation that were not noted in review of the chart prior to signing ED Disposition - Plan for ED Patient: Referrals: Jeferson Valencia III, MD [Primary Care Provider] -
[2019-02-08 03:25] LABS: Bedside Glucose 383 mg/dL (70-110)
--- NOTE | 2019-02-08 03:27 | ED.DEP ---
ED Disposition - Plan for ED Patient: Instructions: ED Flank Pain Uncertain Cause Referrals: Jeferson Valencia III, MD [Primary Care Provider] -
[2019-02-08 03:39] VITALS: BP 146/81; PULSE 74; RESP 18; O2SAT 98
== END 2019-02-08 03:40 | disposition home or self-care (01) ==
PROVIDERS: Emergency Provider Emergency Medicine; Family Provider Family Medicine; PCP Family Medicine
DX: R10.9 Unspecified abdominal pain (principal); R31.9 Hematuria, unspecified; E11.65 Type 2 diabetes mellitus with hyperglycemia; Z87.442 Personal history of urinary calculi; E78.00 Pure hypercholesterolemia, unspecified; Z72.0 Tobacco use
CPT/HCPCS: 74176; 80048; 81001; 82962; 85025; 99283; J7030; A4216; J2405

== ENCOUNTER 2019-03-01 16:20 | Emergency (ER) | payer MEDICAID, SELFPAY ==
[2019-03-01 16:21] VITALS: BP 146/88; PULSE 93; RESP 18; TEMP 36.6; O2SAT 99; BMI 33.5
--- NOTE | 2019-03-01 16:30 | RAD_ITS ---
STUDY: X-RAY - LEFT ANKLE REASON FOR EXAM: Female, 53 years old. Rolled ankle, pain TECHNIQUE: 3 view(s) of the ankle. COMPARISON: None. FINDINGS: Normal visualized distal tibia and fibula. Normal medial and lateral malleoli. Normal tibiotalar articulation and ankle mortise. Normal visualized talus and calcaneus. There is calcaneal enthesopathy. The visualized subtalar, talonavicular, calcaneocuboid and tarsal articulations are normal. The soft tissue structures are unremarkable. RAD/Ankle min 3 Views IMPRESSION: Normal x-ray examination of the ankle. Electronically Signed: Librado Vivas, at 16:46 EDT Tel , Service support ,
--- NOTE | 2019-03-01 16:32 | RAD_ITS ---
STUDY: X-RAY - LEFT FOOT CLINICAL: Female, 53 years old. Rolled ankle. Foot pain. TECHNIQUE: 3 view(s) of the foot. COMPARISON: None. FINDINGS: There is a plantar calcaneal spur. Normal talus and tarsal bones. Normal visualized subtalar, talonavicular, calcaneocuboid, tarsal and tarsometatarsal articulations. Normal metatarsi. Normal metatarsophalangeal joint of the great toe. Normal tibial and fibular sesamoid bones. Normal interphalangeal joint of the great toe. Normal phalanges of the great toe. Normal second through fifth metatarsophalangeal joints. Normal interphalangeal joints and phalanges of the lesser toes. The soft tissue structures are unremarkable. RAD/Foot min 3 Views IMPRESSION: Plantar spur. There is no evidence of acute fracture or dislocation. Electronically Signed: Silvestre Barone DO at 16:53 EDT Tel [phone], Service support ,
--- NOTE | 2019-03-01 16:39 | ED.DCSUM_ITS ---
- ER Visit Summary Date of Service: 03/01/19 Chief Complaint: Left foot and ankle pain History of Present Illness: The patient is a 53 F who rolled her left foot on a stepping stone yesterday afternoon. She has pain on the lateral aspect of the foot and through her ankle. She has been able to ambulate but does have antalgic gait. Physical Examination: Vital signs unremarkable. Patient sitting upright in bed no acute distress. Left lower extremity examination reveals tenderness palpation along the lateral aspect of the ankle and foot with mild edema. No skin changes noted. No tenderness of the left knee. Test Results: Left foot and ankle x-rays were obtained and revealed no sign of fracture. Emergency Department Course and Treatment: Patient be placed in an air stirrup splint. She declined crutches. She will continue to use Tylenol as needed for pain. Treatment Plan: [] Disposition: Discharge Impression: Left foot and ankle sprain This note was generated with [employer] dictation software. It may contain incorrect words, spelling, and punctuation that were not noted in review of the chart prior to signing ED Disposition - Plan for ED Patient: Disposition: Home or Assisted Living Instructions: ED Sprain Foot, ED Sprain Ankle W X Ray Referrals: Jeferson Valencia III, MD [Primary Care Provider] - 1 Week if not improving
[2019-03-01 17:15] VITALS: BP 140/85; PULSE 76; RESP 18
== END 2019-03-01 17:18 | disposition home or self-care (01) ==
LOC: ED 16:57
PROVIDERS: Emergency Provider Emergency Medicine; Family Provider Family Medicine; PCP Family Medicine
DX: S93.402A Sprain of unspecified ligament of left ankle, initial encounter (principal); X50.1XXA Overexertion from prolonged static or awkward postures, initial encounter; Y93.9 Activity, unspecified; Y92.89 Other specified places as the place of occurrence of the external cause; Y99.8 Other external cause status; E11.9 Type 2 diabetes mellitus without complications; I10 Essential (primary) hypertension; E78.00 Pure hypercholesterolemia, unspecified; Z72.0 Tobacco use; Z87.442 Personal history of urinary calculi
CPT/HCPCS: 73610; 73630; 99283

== ENCOUNTER → 2019-03-15 09:37 | Outpatient (CLI) | payer MEDICAID, SELFPAY ==
[2019-03-01 16:21] VITALS: BMI 33.5
--- NOTE | 2019-03-15 10:00 | MRI_ITS ---
STUDY: MRI LUMBAR SPINE WITHOUT CONTRAST REASON FOR EXAM: Female, 53 years old. Radiculopathy, low back pain, bilateral leg pain and numbness TECHNIQUE: Standardized fat and water weighted pulse sequences were obtained in the sagittal and axial planes. COMPARISON: 05/09/2010 FINDINGS: T12-L1: Normal endplates. Normal disc height, hydration and morphology. Normal bilateral facet joints. Normal central canal and bilateral lateral recesses. Normal bilateral intervertebral neural foramina. Normal lumbar lordosis. There is no substantial scoliosis. Normal conus medullaris that terminates at the T12 level. L1-2: Normal endplates. Normal disc height, hydration and morphology. Normal bilateral facet joints. Normal central canal and bilateral lateral recesses. Normal bilateral intervertebral neural foramina. L2-3: Bulging annulus and left foraminal disc protrusion and bilateral facet hypertrophy. Moderate left foraminal stenosis. L3-4: Bulging annulus and bilateral facet hypertrophy with mild right foraminal stenosis. L4-5: Bulging annulus and broad central disc protrusion with mild central canal and moderate left lateral recess stenoses. Mild bilateral foraminal stenoses. L5-S1: Bulging annulus, central disc protrusion, and bilateral facet hypertrophy without compressive sequelae. Normal visualized sacral ala. Normal visualized paraspinous soft tissue structures. MRI/Spine Lumbar (Routine) IMPRESSION: Multilevel degenerative disease as described. Moderate left lateral recess stenosis at L4-5. Moderate left foraminal stenosis at L2-3. Electronically Signed: Melvin Vu MD at 11:28 EDT Tel , Service support ,
== END ==
PROVIDERS: Family Provider Family Medicine; PCP Family Medicine; Referring Provider Anesthesiology; Visit Provider Anesthesiology
DX: M54.16 Radiculopathy, lumbar region (principal)
CPT/HCPCS: 72148

== ENCOUNTER 2019-04-04 18:52 | Emergency (ER) | payer MEDICAID, SELFPAY ==
[2019-04-04 18:54] VITALS: BP 154/89; PULSE 118; RESP 20; TEMP 36.6; O2SAT 96; BMI 34.3
[2019-04-04 19:24] LABS: Bacteria 0 SEEN /hpf (None Seen); Mucous, Urine 0 SEEN /hpf (<or=2+)
[2019-04-04 19:33] VITALS: BP 154/89; PULSE 118; RESP 20; TEMP 36.6; O2SAT 96
--- NOTE | 2019-04-04 19:47 | CT_ITS ---
STUDY: CT ABDOMEN AND PELVIS WITHOUT CONTRAST REASON FOR EXAM: Female, 53 years old. Right-sided pain RADIATION DOSAGE (If Supplied By Facility): CTDIvol = ( 14.30 ) mGy, DLP = ( 662.13 ) mGycm TECHNIQUE: Transaxial images were obtained from the dome of the diaphragm to the symphysis pubis without oral contrast, and without intravenous contrast. Sagittal and coronal images were reconstructed. Individualized dose optimization techniques were used for this CT. COMPARISON: 02/08/2019 FINDINGS: Evaluation of the abdominal viscera is limited in the absence of intravenous contrast. The visualized lung bases are clear. The visualized portions of the heart and pericardium are within normal limits. The patient is status post cholecystectomy. The liver is enlarged, but stable. Again noted are calcified granulomata in the liver. The spleen is normal in size. Again noted is a calcified granulomata in the spleen. The pancreas demonstrates an unremarkable unenhanced appearance. The adrenal glands are within normal limits. There are no renal or ureteral stones. There is no hydronephrosis. Normal visualized stomach. There is no bowel obstruction or inflammation. The appendix is visualized and appears normal. There is a stable small fat-containing umbilical hernia. There is no bowel containing hernia. The aorta is normal in caliber. There are stable atherosclerotic ossification is noted in the aorta. There is no abdominal or pelvic free air, free fluid, fluid collection or lymphadenopathy. There are no destructive osseous lesions. CT/Abdomen/Pelvis without Cont IMPRESSION: No acute abdominal or pelvic pathology demonstrated on this noncontrast CT. Stable nonacute findings, as above. Electronically Signed: Michael Cortez, at 20:20 EDT Tel , Service support ,
[2019-04-04 19:52] LABS: Glucose, Dipstick 1000 mg/dl (Normal); Ketone-Dipstick Negative (Negative); Leukocyte Esterase-Dipstick 25 /ul (Negative); Nitrite-Dipstick Negative (Negative); Occult Blood-Urine 250 /ul (Negative); Protein-Dipstick 30 mg/dl (Negative); Urine Bilirubin Dipstick Negative (Negative); Urine Clarity Sl. Cloudy (Clear); Urine Urobilinogen Normal (Normal)
--- NOTE | 2019-04-04 19:52 | ED.DCSUM_ITS ---
- ER Visit Summary Date of Service: 04/04/19 Chief Complaint: Right flank pain History of Present Illness: The patient is a 53 F presenting with right flank pain. Patient states this started on Wednesday. It started suddenly. Feels like her previous kidney stones. She has had hematuria. She denies dysuria. She has nausea with no vomiting. Denies fever. Denies other complaints. Physical Examination: Vitals are stable. Patient is afebrile. Alert no acute distress. HEENT exam is unremarkable. Neck is supple. Lungs are clear and equal bilaterally. Heart is regular and tachycardic Abdomen is soft right lower quadrant tenderness, no guarding or rebound, right CVA tenderness. Extremities are unremarkable. Skin is warm and dry. No rash Remainder of exam is unremarkable. Emergency Department Course and Treatment: Patient was given morphine, Zofran IV. Urinalysis shows 5-10 white blood cells, over 100 red blood cells. hCG was negative. Urine culture was sent. CT abdomen pelvis without contrast shows no acute abdominal or pelvic pathology demonstrated on this noncontrast CT. patient may have had a recently passed kidney stone. She will be started on Bactrim. She will follow-up with Dr. Pichardo. Advised to return to the ED for worsening complaints. Disposition: Discharge home Impression: Hematuria This note was generated with [employer] dictation software. It may contain incorrect words, spelling, and punctuation that were not noted in review of the chart prior to signing ED Disposition - Plan for ED Patient: Instructions: ED Hematuria Prescriptions: Smz/Tmp Ds [Bactrim Ds] 1 tablet PO BID #14 tablet Referrals: Jeferson Valencia III, MD [Primary Care Provider] - Lio Pichardo MD [STAFF PHYSICIAN] -
[2019-04-04 19:57] LABS: Internal QC Validated? YES +Cl - CLEAR BKGD; Pregnancy, Urine Negative Negative
[2019-04-04 20:02] LABS: Color, Urine SEE COMMENT BELOW (Yellow)
[2019-04-04 20:04] LABS: Red Blood Cells-Urine > 100 SEEN /hpf (0-5); White Blood Cells 5-10 SEEN /hpf (0-5)
[2019-04-04 20:05] LABS: Squamous Epithelial Cells - UA 0-5 SEEN /hpf (5-10)
[2019-04-04] MEDS: Ondansetron 4 MG/2 ML Vial IV (20:19)
[2019-04-04] MEDS: Morphine 4 MG/ML Syringe IV ×2 (20:19→22:20)
[2019-04-04 21:49] VITALS: BP 150/82; PULSE 88; RESP 20; TEMP 36.6; O2SAT 98
--- NOTE | 2019-04-04 22:10 | ED.DEP ---
ED Disposition - Plan for ED Patient: Instructions: ED Hematuria Prescriptions: Smz/Tmp Ds [Bactrim Ds] 1 tablet PO BID #14 tablet Referrals: Jeferson Valencia III, MD [Primary Care Provider] - Lio Pichardo MD [STAFF PHYSICIAN] -
[2019-04-04] MEDS: Smz/Tmp Ds Tablet 1 TABLET PO (22:20)
== END 2019-04-04 22:24 | disposition home or self-care (01) ==
LOC: ED 19:43
PROVIDERS: Emergency Provider Emergency Medicine; Family Provider Family Medicine; PCP Family Medicine
DX: R31.9 Hematuria, unspecified (principal); R10.9 Unspecified abdominal pain; R11.0 Nausea; E11.9 Type 2 diabetes mellitus without complications; Z72.0 Tobacco use; Z87.442 Personal history of urinary calculi
CPT/HCPCS: 74176; 81001; 81025; 87086; 87088; 99284; A4216; J2405

== ENCOUNTER 2019-04-07 15:49 | Inpatient (IN) | payer MEDICAID, SELFPAY ==
[2019-04-07 15:50] VITALS: BP 167/89; PULSE 91; RESP 16; TEMP 36.6; O2SAT 97; BMI 34.3
--- NOTE | 2019-04-07 16:01 | ED.DCSUM_ITS ---
- ER Visit Summary Date of Service: 04/07/19 Chief Complaint: Abdominal pain History of Present Illness: The patient is a 53 F who has right-sided abdominal pain. Started 3 days ago. She was seen in the ER at that time. She had a negative CAT scan of her abdomen. She had blood in her urine and was placed on Bactrim. She did not take the Bactrim because it gave her symptoms of puffy face and itching. She has no nausea but no vomiting. No diarrhea. She denies any urinary symptoms at this time. No fevers. She has had a hysterectomy and cholecystectomy in the past. She has been trying Tylenol without any relief. Physical Examination: Vital signs reviewed. HEENT exam unremarkable. Heart is regular rate and rhythm without murmurs. Lungs are clear to auscultation. Abdomen is soft with right-sided tenderness. There is no guarding or rebound tenderness.. Extremities reveal no edema. Skin exam normal. Neurologic exam normal. Test Results: CBC unremarkable. Sodium 127, glucose 740. Creatinine 1.24 urinalysis is greater than 100 red blood cells Emergency Department Course and Treatment: Patient was treated with morphine and Zofran for pain. I gave her 30 units of regular insulin. Due to her laboratory normalities I feel she needs to be admitted to the hospital. I do not feel she needs antibiotics due to the hematuria. She does had a CAT scan 2 days ago which showed nothing acute. Patient was discussed with hospitalist for admission Treatment Plan: [] Disposition: Admit Impression: Hyperglycemia, hyponatremia, microscopic hematuria This note was generated with [employer] dictation software. It may contain incorrect words, spelling, and punctuation that were not noted in review of the chart prior to signing ED Disposition - Plan for ED Patient: Referrals: Jeferson Valencia III, MD [Primary Care Provider] -
[2019-04-07 16:29] LABS: Absolute Lymphocyte Count 2.02 X10^3/ul (0.83-4.51); Absolute Neutrophil Count 3.8 X10^3/uL (2.0-7.7); Basophil# 0.03 X10^3/uL; Basophil% 0.5 % (0-1); Eosinophil# 0.04 X10^3/uL; Eosinophils% 0.6 % (0-5); Hematocrit 38.6 % (37-47); Lymphocyte # 2.02 X10^3/ul (4.0); Lymphocyte % 32.7 % (19-41); Mean Corp Hgb Conc 33.7 g/gl (32-36); Mean Corpuscular Hgb 30.6 pg (27.0-32.0); Mean Corpuscular Volume 90.8 fL (81-99); Mean Platelet Vol. 10.4 fl (6.2-12.0); Monocyte# 0.25 X10^3/uL; Neutrophil # 3.83 X10^3/uL (2.7-7.7); POSITIVE COUNT NO; POSITIVE DIFFERENTIAL NO; POSITIVE MORPHOLOGY NO; Platelet Count 190 K/mm3 (150-450); RBC Distribution Width CV 12.9 % (11.6-14.6); RBC Distribution Width SD 42.3 fl (35.1-43.9); Red Blood Count 4.25 M/mm3 (4.2-5.4); White Blood Count 6.2 K/mm3 (4.4-11.0)
[2019-04-07 16:35] LABS: Bedside Glucose > 500 mg/dL (70-110)
--- NOTE | 2019-04-07 16:39 | ED.RN ---
PATIENT BS RESULT >600, RN IRENA NOTIFIED.
[2019-04-07 16:41] LABS: Bacteria 0 SEEN /hpf (None Seen); Mucous, Urine 0 SEEN /hpf (<or=2+); White Blood Cells 0 SEEN /hpf (0-5)
[2019-04-07] MEDS: Morphine 4 MG/ML Syringe IV (16:41)
[2019-04-07] MEDS: Ondansetron 4 MG/2 ML Vial IV ×2 (16:41→20:47)
[2019-04-07 16:43] LABS: Color, Urine Yellow (Yellow); Glucose, Dipstick 1000 mg/dl (Normal); Ketone-Dipstick Negative (Negative); Leukocyte Esterase-Dipstick 100 /ul (Negative); Nitrite-Dipstick Negative (Negative); Occult Blood-Urine 250 /ul (Negative); Protein-Dipstick 15 mg/dl (Negative); Urine Bilirubin Dipstick Negative (Negative); Urine Clarity Cloudy (Clear); Urine Urobilinogen Normal (Normal)
[2019-04-07 16:50] LABS: Red Blood Cells-Urine > 100 SEEN /hpf (0-5); Squamous Epithelial Cells - UA 0-5 SEEN /hpf (5-10)
[2019-04-07 17:05] LABS: AST(SGOT) 40 U/L (15-37); Alanine Aminotransfer ALT/SGPT 39 U/L (13-56); Albumin, Serum 3.7 g/dL (3.2-5.0); Alkaline Phosphatase 81 U/L (45-117); Anion Gap 9 (5-15); BUN 12 mg/dL (7-18); BUN/Creat Ratio 9.7 RATIO (10-20); Calcium,Total 8.5 mg/dL (8.5-10.1); Chloride 97 mmol/L (98-107); Creatinine, Serum 1.24 mg/dL (0.55-1.02); EST Glomerular Filtration Rate 48 mL/min (>60); Est Glom Filt Rate - Afr Amer 58 mL/min (>60); Estimated Creatinine Clearance 36.82 ml/min; Globulin 3.6 g/dL (2.2-4.2); Lipase 265 U/L (73-393); Potassium 4.3 mmol/L (3.5-5.1); Protein, Total 7.3 g/dL (6.4-8.2); Sodium Level 127 mmol/L (136-145)
[2019-04-07 17:06] LABS: Glucose 740 mg/dL (74-106)
--- NOTE | 2019-04-07 17:33 | PCM.HP.STD ---
Problem List (1) Gross hematuria Status: Acute Comment: hematuria probably from stone (2) Hematuria Status: Acute Qualifiers: Hematuria type: benign essential microscopic Qualified Code(s): R31.1 - Benign essential microscopic hematuria (3) Hyperglycemia Status: Chronic (4) Type II diabetes mellitus, uncontrolled Status: Chronic Qualifiers: Coma presence: without coma (5) Hyperparathyroid bone disease Status: Chronic (6) HTN (hypertension) Status: Chronic Qualifiers: Hypertension type: essential hypertension Qualified Code(s): I10 - Essential (primary) hypertension History of Present Illness Date of Admission: 04/07/19 Chief Complaint: Right flank pain - 2 days The patient is a 53 year old F with PMHx of type II DM, hypertension, hyperparathyroidism who comes in with right flank pain ongoing for 1 week. Patient was seen in the emergency department on 04/04/19 with right flank pain. Patient recently had a CAT scan which was apparently normal. Patient was discharged with Bactrim but she is felt that the Bactrim made her face swell up. Did not did not complete the Bactrim. She comes in with persistent abdominal pain that is described as sharp/stabbing that starts from her flank and radiates into her groin with a twisting motion to it associated with nausea and vomiting. Denies any fever and chills. She has been seen blood in her urine is all through her urine. Vitals in the ED showed temperature 97.8 F, heart rate 88, blood pressure is 150/82, respiratory rate was 20, SPO2 is 98% on room air. Mittie CBC D is unremarkable, BMP showed sodium 127, potassium 4.3, chloride 97, bicarbonate 21, BUN is 12, creatinine is 1.24, blood sugar was 740 Past Medical History Past Medical History (Chronic Problems): Chronic Problems (Last Updated 12/10/17 @ 13:41 by Angelika De La Torre) Kidney stone on left side (Chronic) present with left flank pain from 5mm stone in left kidney Hyperglycemia (Chronic) Depressive disorder (Chronic) Type II diabetes mellitus, uncontrolled (Chronic) Hyperparathyroid bone disease (Chronic) HTN (hypertension) (Chronic) Personal history of urinary calculi (Chronic) Pure hypercholesterolemia (Chronic) Medical History: Medical History (Last Updated 12/10/17 @ 13:41 by Angelika De La Torre) Back pain M54.9 Carpal tunnel syndrome G56.00 Diabetes E11.9 Fatigue R53.83 H/O: hysterectomy Z98.890, Z90.710 Kidney disease N28.9 Kidney stones N20.0 Migraines G43.909 Stomach ulcer K25.9 Thyroid disease E07.9 Allergies ciprofloxacin [From Cipro] Allergy (Verified 04/04/19 18:56) Swelling ciprofloxacin HCl [From Cipro] Allergy (Verified 04/04/19 18:56) Swelling codeine Allergy (Verified 04/04/19 18:56) Hives ibuprofen Allergy (Verified 04/04/19 18:56) Hives naproxen Allergy (Verified 04/04/19 18:56) Hives Penicillins Allergy (Verified 04/04/19 18:56) Hives tramadol HCl [From Ultram] Allergy (Verified 04/04/19 18:56) Hives ketorolac [From Toradol] Adverse Reaction (Verified 04/04/19 18:56) Vomiting Home Medications: Ambulatory Orders Medication Instructions Recorded insulin glargine (U- 100) 100 12 unit SC BID ml 18 unit/mL subcutaneous solution insulin lispro (U- 100) 100 32 unit SC QACDINNER 18 unit/mL subcutaneous cartridge Rizatriptan Benzoate [Maxalt] 10 mg PO PRN PRN 18 Levothyroxine [Synthroid] 125 mcg PO DAILY 18 Omeprazole 40 mg PO DAILY 03/01/19 Surgical History: Surgical History (Last Updated 12/10/17 @ 13:41 by Angelika De La Torre) Hx of section Z98.891 S/P trigger finger release Z98.890 Surgical History: cholecystectomy, hysterectomy, - - , parathyroid gland removal, cholecytectomy, L ganglion cyst wrist. 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 Paternal Family History: Family History (Last Updated 12/10/17 @ 13:42 by Angelika De La Torre) Other CVA (cerebral vascular accident) Cancer Diabetes Myocardial infarction History Items: Heart Disease - Father w/ [place]/CAD w/ PCI x 1 at 64 y/o. Review of Systems Constitutional: Reports: Anorexia, Weakness, Fatigue. Denies: Chills, Fever, Weight Change Eyes: Denies: Blurred vision, Cataracts, Conjunctivae Inflammation, Pain, Redness, Vision Change HEENT: Denies: Difficulty Hearing, Difficulty Swallowing, Head Aches, Hearing Changes, Sinus Congestion, Sinus Drainage, Sore Throat Cardiovascular: Denies: Chest Pain, Claudication, Orthopnea, Palpitations, Paroxysmal Noc. Dyspnea Respiratory: Denies: Cough, Hemoptysis, Shortness of breath at rest, Shortness of breath upon exertion, Sputum production Gastrointestinal: Denies: Abdominal Pain, Hematemesis, Hematochezia, Nausea, Vomiting Genitourinary: Denies: Dysuria, Frequency, Incontinence Gynecological: Denies: Breast symptoms, Excessively long or heavy periods Musculoskeletal: Denies: Joint Pain, Joint stiffness, Joint swelling, Joint Tenderness Skin: Denies: Pruritis, Rash, Wounds Neurological: Denies: Difficulty swallowing, Focal weakness, Numbness, Tingling Psychiatric: Denies: Anxiety, Depression, Homicidal Ideations, Suicidal Ideations Hematologic/ Lymphatic: Denies: Easy Bruising, Easy Bleeding VTE Information - Inpt Only VTE Present on Admission: No VTE Pharm Prophylaxis ordered?: Yes - Physical Exam General: Alert, Oriented x3, Cooperative, No apparent distress, - - in pain HEENT: Atraumatic, PERRLA, EOMI, Normocephalic Oral: Moist Mucosa Neck: Supple Lungs: Clear to auscultation, Normal air movement Cardiovascular: Regular rate, Regular Rhythm, Normal S1, Normal S2, No murmurs Abdomen: Bowel Sounds Present, Soft, Tender - over the right flank region with guarding but no rebound tenderness Extremities: No edema Skin: No rashes, No breakdown Musculoskeletal: No Tenderness to Palpation of Joints or Extremities Lymphatic: No Cervical, Supraclavicular, or Inguinal Adenopathy Neurological: Cranial nerves II-XII grossly intact Psych/Mental Status: Normal Affect, Appropriate Vital Signs Temp Pulse Resp BP Pulse Ox 97.8 F 91 16 167/89 H 97 04/07/19 15:50 04/07/19 15:50 04/07/19 15:50 04/07/19 15:50 04/07/19 15:50 Oxygen Delivery Method Room Air Weight: 79.832 kg Body Mass Index (BMI) 34.3 Finger Stick Blood Glucose 383 Laboratory Tests Past 24 Hrs 04/07/19 04/07/19 04/07/19 16:15 16:15 16:35 WBC 6.2 RBC 4.25 Hgb 13.0 Hct 38.6 MCV 90.8 MCH 30.6 MCHC 33.7 RDW 12.9 RDW Differential 42.3 Plt Count 190 MPV 10.4 Immature Gran % (Auto) 0.200 Neut % (Auto) 62.0 Lymph % (Auto) 32.7 [place] % (Auto) 4.0 Eos % (Auto) 0.6 Baso % (Auto) 0.5 Absolute Neuts (auto) 3.8 Absolute Lymphs (auto) 2.02 Total Counted Not Reportable Sodium 127 L Potassium 4.3 Chloride 97 L Carbon Dioxide 21.0 Anion Gap 9 BUN 12 Creatinine 1.24 H Estim Creat Clear Calc 36.82 Est GFR (MDRD) Af Amer 58 L Est GFR (MDRD) Non-Af 48 L BUN/Creatinine Ratio 9.7 L Glucose 740 H* Calcium 8.5 Total Bilirubin 0.30 AST 40 H ALT 39 Alkaline Phosphatase 81 Total Protein 7.3 Albumin 3.7 Globulin 3.6 Albumin/Globulin Ratio 1.0 Lipase 265 Urine Color Yellow Urine Clarity Cloudy Urine pH 5.0 Ur Specific [place] 1.010 Urine Protein 15 H Urine Glucose (UA) 1000 H Urine Ketones Negative Urine Occult Blood 250 H Urine Nitrite Negative Urine Bilirubin Negative Urine Urobilinogen Normal Ur Leukocyte Esterase 100 H Urine RBC > 100 SEEN Urine WBC 0 SEEN Ur Squamous Epith Cells 0-5 SEEN Urine Bacteria 0 SEEN Urine Mucus 0 SEEN POC Glucose 04/07/19 16:28 POC Glucose > 500 H* Assessment/Plan All Active Problems (Last Updated 12/10/17 @ 13:41 by Angelika De La Torre) Infection of tooth (Acute) Gross hematuria (Acute) Hematuria (Acute) Acute kidney injury (Acute) 53 year old F with PMHx of type II DM, hypertension, hyperparathyroidism who comes in with right flank pain and hematuria ongoing for 1 week, currently seen in the emergency department on 04/04/19 with the same complaints and found to have hyperglycemia. 1. Acute right flank pain likely secondary to acute nephrolithiasis with gross hematuria, previous CT of the abdomen and pelvis was negative for kidney stones, Plan: Admit to PCU, continue on IV fluids, pain control, urology consult, ultrasound of the kidneys and bladder, IV ceftriaxone, blood work in a.m. 2. Hyperglycemia in a known type II DM, check Hb A1c, continue home insulin dose, continue with Accu-Chek with insulin sliding scale 3. Hypertension, continue on home medication 4. Hyperparathyroidism, s/p parathyroidectomy 5. Nicotine dependence, on nicotine replacement 6. Hypothyroidism, on replacement 7. DVT PPx-SCDs - on account of hematuria Code Visit Inpatient E&M: 38014 Init Hosp L3
[2019-04-07] MEDS: Insulin NPH Human 100 UNITS/ML PEN 30 UNITS SC (18:04)
[2019-04-07 18:05] VITALS: BP 154/79; PULSE 65; RESP 18; O2SAT 99
[2019-04-07 18:44] VITALS: BMI 33.5; BMI 34.4
[2019-04-07 19:01] LABS: Bedside Glucose 447 mg/dL (70-110)
--- NOTE | 2019-04-07 19:06 | US_ITS ---
HISTORY: NEPHROLITHIASIS EXAMINATION: US Kidney(s) complete (eg, kidneys T bladder) TECHNIQUE: Lopez scale and color doppler sagittal and transverse images were obtained of the kidneys. 91 images. COMPARISON: CT scan from April 04, 2019 FINDINGS: RIGHT KIDNEY: Measures 9.6 x 4.1 x 5.6 cm.. There is no hydronephrosis. No shadowing calculus, focal lesion or perinephric collection is demonstrated. LEFT KIDNEY: Measures 10.1 x 5.6 I 4.8 cm. There is no hydronephrosis. No shadowing calculus, focal lesion or perinephric collection is demonstrated. The installer helper measures a 10 x 7 mm structure within the left kidney. I believe it is collecting system and medulla. I do not perceive as a mass URINARY BLADDER: Prevoid bladder volume is estimated at about 800 cc. Post void bladder volume is estimated at about 70 cc. Bilateral ureteric jets are suspected US/Kidney and Bladder IMPRESSION: Negative renal ultrasound. at 2149 Reported and signed by: Errol Quinn MD Electronically Signed: Errol Quinn MD at 21:48 EDT Tel , Service support ,
[2019-04-07 19:20] VITALS: PULSE 66
[2019-04-07] MEDS: Insulin Lispro 100 UNIT/ML INSULN.PEN SQ (19:20)
[2019-04-07] MEDS: 0.9% Normal Saline 1,000 ML 250 ML IV ×2 (19:20→23:07)
[2019-04-07] MEDS: Morphine 2 MG/ML Syringe IV ×2 (19:40→23:05)
[2019-04-07 20:28] VITALS: BP 124/68; PULSE 69; RESP 17; TEMP 36.6; O2SAT 98
[2019-04-07] MEDS: Ceftriaxone 1 GM/50 ML BAG IV (20:46)
[2019-04-07 21:06] LABS: Bedside Glucose 386 mg/dL (70-110)
[2019-04-07] MEDS: Insulin Lispro 100 UNIT/ML INSULN.PEN 18 UNIT SC (21:17)
[2019-04-07 23:01] VITALS: PULSE 71
[2019-04-08] VITALS (10 sets, daily range): BP systolic 106–134; BP diastolic 53–72; PULSE 67–83; RESP 16–17; TEMP 36.5–37; O2SAT 94–97
[2019-04-08] MEDS: Morphine 2 MG/ML Syringe IV ×5 (02:20→22:08)
[2019-04-08] MEDS: 0.9% NaCl Peripheral Flush Adult/Peds IV ×11 (02:21→22:08)
[2019-04-08 02:36] LABS: Bedside Glucose 126 mg/dL (70-110)
[2019-04-08] MEDS: Levothyroxine 125 MCG Tablet PO (05:10)
[2019-04-08] MEDS: Ondansetron 4 MG/2 ML Vial IV ×3 (05:10→20:05)
[2019-04-08 06:46] LABS: Bedside Glucose 213 mg/dL (70-110)
[2019-04-08 06:58] LABS: Anion Gap 3 (5-15); BUN 10 mg/dL (7-18); BUN/Creat Ratio 12.6 RATIO (10-20); Calcium,Total 7.6 mg/dL (8.5-10.1); Chloride 109 mmol/L (98-107); Creatinine, Serum 0.79 mg/dL (0.55-1.02); EST Glomerular Filtration Rate 80 mL/min (>60); Est Glom Filt Rate - Afr Amer 97 mL/min (>60); Estimated Creatinine Clearance 57.79 ml/min; Glucose 210 mg/dL (74-106); Potassium 3.7 mmol/L (3.5-5.1); Sodium Level 137 mmol/L (136-145)
[2019-04-08] MEDS: Insulin Lispro 100 UNIT/ML INSULN.PEN 15 UNIT SQ ×3 (08:23→17:00)
[2019-04-08] MEDS: Insulin Lispro 100 UNIT/ML INSULN.PEN SQ ×3 (08:24→21:35)
[2019-04-08] MEDS: Pantoprazole Sodium 40 MG Tablet PO (08:26)
--- NOTE | 2019-04-08 09:37 | PCM.CONS.U ---
Reason for Consult Date of Consultation: 04/08/19 Reason for Consultation: right flank pain hematuria History of Present Illness: The patient is a 53 year old female admitted for Right flank pain and micro hematuria had prior cysto at [facility] negative, ct scan recently with no stone, no hydronephrosis u/s recent all negative. Past Medical History Past Medical History (Chronic Problems): Chronic Problems (Last Updated 12/10/17 @ 13:41 by Angelika De La Torre) Kidney stone on left side (Chronic) present with left flank pain from 5mm stone in left kidney Hyperglycemia (Chronic) Depressive disorder (Chronic) Type II diabetes mellitus, uncontrolled (Chronic) Hyperparathyroid bone disease (Chronic) HTN (hypertension) (Chronic) Personal history of urinary calculi (Chronic) Pure hypercholesterolemia (Chronic) Medical History: Medical History (Last Reviewed 04/08/19 @ 09:38 by Lio Pichardo MD) Back pain M54.9 Carpal tunnel syndrome G56.00 Diabetes E11.9 Fatigue R53.83 H/O: hysterectomy Z98.890, Z90.710 Kidney disease N28.9 Kidney stones N20.0 Migraines G43.909 Stomach ulcer K25.9 Thyroid disease E07.9 Allergies ciprofloxacin [From Cipro] Allergy (Verified 04/04/19 18:56) Swelling ciprofloxacin HCl [From Cipro] Allergy (Verified 04/04/19 18:56) Swelling codeine Allergy (Verified 04/04/19 18:56) Hives ibuprofen Allergy (Verified 04/04/19 18:56) Hives naproxen Allergy (Verified 04/04/19 18:56) Hives Penicillins Allergy (Verified 04/04/19 18:56) Hives tramadol HCl [From Ultram] Allergy (Verified 04/04/19 18:56) Hives ketorolac [From Toradol] Adverse Reaction (Verified 04/04/19 18:56) Vomiting Home Medications: Ambulatory Orders Medication Instructions Recorded insulin glargine (U- 100) 100 12 unit SC BID ml 12/10/17 unit/mL subcutaneous solution insulin lispro (U- 100) 100 32 unit SC QACDINNER 12/10/17 unit/mL subcutaneous cartridge Rizatriptan Benzoate [Maxalt] 10 mg PO PRN PRN 12/27/17 Levothyroxine [Synthroid] 125 mcg PO DAILY 04/05/18 Omeprazole 40 mg PO DAILY 03/01/19 Surgical History: Surgical History (Last Reviewed 04/08/19 @ 09:38 by Lio Pichardo MD) Hx of section Z98.891 S/P trigger finger release Z98.890 Surgical History: cholecystectomy, hysterectomy, - - , parathyroid gland removal, cholecytectomy, L ganglion cyst wrist. 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 Paternal Family History: Family History (Last Reviewed 04/08/19 @ 09:38 by Lio Pichardo MD) Other CVA (cerebral vascular accident) Cancer Diabetes Myocardial infarction History Items: Heart Disease - Father w/ [place]/CAD w/ PCI x 1 at 64 y/o. Review of Systems Constitutional: Denies: Chills, Fever, Weight Change HEENT: Denies: Head Aches, Sinus Congestion, Sinus Drainage Cardiovascular: Denies: Chest Pain, Palpitations Respiratory: Denies: Cough, Shortness of breath at rest, Sputum production Gastrointestinal: Reports: Abdominal Pain, - - back pain right. Denies: Nausea, Vomiting Genitourinary: Denies: Dysuria Musculoskeletal: Denies: Joint Pain, Joint Tenderness Skin: Denies: Rash, Wounds Neurological: Denies: Numbness, Tingling, Focal weakness Psychiatric: Denies: Anxiety, Depression, Homicidal Ideations, Suicidal Ideations Hematologic/ Lymphatic: Denies: Easy Bruising, Easy Bleeding Physical Exam - Physical Exam Vital Signs Temp 98.6 F 04/08/19 08:06 Pulse 67 04/08/19 08:06 Resp 16 04/08/19 08:06 BP 134/72 H 04/08/19 08:06 Pulse Ox 97 04/08/19 08:06 Intake & Output 04/06/19 04/07/19 04/08/19 23:59 23:59 23:59 Intake Total 1502.3 / 1502.3 872 / 872 Output Total 650 / 650 1200 / 1200 Balance 852.3 / 852.3 -328 / -328 Weight: 77.927 kg Intake: Oral 240 / 240 120 / 120 IV fluid/meds 1262.3 / 1262.3 752 / 752 Output: Urine 650 / 650 1200 / 1200 General: Alert, Oriented x3 HEENT: Atraumatic Oral: Moist Mucosa Neck: Supple Lungs: Normal air movement Cardiovascular: Regular rate Abdomen: Soft, Obese Laboratory Tests Past 24 Hrs 04/07/19 04/07/19 04/07/19 16:15 16:15 16:35 WBC 6.2 RBC 4.25 Hgb 13.0 Hct 38.6 MCV 90.8 MCH 30.6 MCHC 33.7 RDW 12.9 RDW Differential 42.3 Plt Count 190 MPV 10.4 Immature Gran % (Auto) 0.200 Neut % (Auto) 62.0 Lymph % (Auto) 32.7 [place] % (Auto) 4.0 Eos % (Auto) 0.6 Baso % (Auto) 0.5 Absolute Neuts (auto) 3.8 Absolute Lymphs (auto) 2.02 Total Counted Not Reportable Sodium 127 L Potassium 4.3 Chloride 97 L Carbon Dioxide 21.0 Anion Gap 9 BUN 12 Creatinine 1.24 H Estim Creat Clear Calc 36.82 Est GFR (MDRD) Af Amer 58 L Est GFR (MDRD) Non-Af 48 L BUN/Creatinine Ratio 9.7 L Glucose 740 H* Calcium 8.5 Total Bilirubin 0.30 AST 40 H ALT 39 Alkaline Phosphatase 81 Total Protein 7.3 Albumin 3.7 Globulin 3.6 Albumin/Globulin Ratio 1.0 Lipase 265 Urine Color Yellow Urine Clarity Cloudy Urine pH 5.0 Ur Specific [place] 1.010 Urine Protein 15 H Urine Glucose (UA) 1000 H Urine Ketones Negative Urine Occult Blood 250 H Urine Nitrite Negative Urine Bilirubin Negative Urine Urobilinogen Normal Ur Leukocyte Esterase 100 H Urine RBC > 100 SEEN Urine WBC 0 SEEN Ur Squamous Epith Cells 0-5 SEEN Urine Bacteria 0 SEEN Urine Mucus 0 SEEN 04/08/19 06:24 WBC RBC Hgb Hct MCV MCH MCHC RDW RDW Differential Plt Count MPV Immature Gran % (Auto) Neut % (Auto) Lymph % (Auto) [place] % (Auto) Eos % (Auto) Baso % (Auto) Absolute Neuts (auto) Absolute Lymphs (auto) Total Counted Sodium 137 Potassium 3.7 Chloride 109 H Carbon Dioxide 25.0 Anion Gap 3 L BUN 10 Creatinine 0.79 Estim Creat Clear Calc 57.79 Est GFR (MDRD) Af Amer 97 Est GFR (MDRD) Non-Af 80 BUN/Creatinine Ratio 12.6 Glucose 210 H Calcium 7.6 L Total Bilirubin AST ALT Alkaline Phosphatase Total Protein Albumin Globulin Albumin/Globulin Ratio Lipase Urine Color Urine Clarity Urine pH Ur Specific [place] Urine Protein Urine Glucose (UA) Urine Ketones Urine Occult Blood Urine Nitrite Urine Bilirubin Urine Urobilinogen Ur Leukocyte Esterase Urine RBC Urine WBC Ur Squamous Epith Cells Urine Bacteria Urine Mucus Assessment/Plan All Active Problems (Last Updated 12/10/17 @ 13:41 by Angelika De La Torre) Infection of tooth (Acute) Gross hematuria (Acute) Hematuria (Acute) Acute kidney injury (Acute) etiology of her right back pain is unclear ct scan of kidneys ok, u/s of kidneys ok might be other pathology?? call me with questions. can follow up out patient with her Urologist at [facility] for cysto.
--- NOTE | 2019-04-08 09:40 | CON.PCM_ITS ---
Reason for Consult Date of Consultation: 04/08/19 Reason for Consultation: right flank pain hematuria History of Present Illness: The patient is a 53 year old female admitted for Right flank pain and micro hematuria had prior cysto at [facility] negative, ct scan recently with no stone, no h ydronephrosis u/s recent all negative. Past Medical History Past Medical History (Chronic Problems): Chronic Problems (Last Updated 12/10/17 @ 13:41 by Angelika De La Torre) Kidney stone on left side (Chronic) present with left flank pain from 5mm stone in left kidney Hyperglycemia (Chronic) Depressive disorder (Chronic) Type II diabetes mellitus, uncontrolled (Chronic) Hyperparathyroid bone disease (Chronic) HTN (hypertension) (Chronic) Personal history of urinary calculi (Chronic) Pure hypercholesterolemia (Chronic) Medical History: Medical History (Last Reviewed 04/08/19 @ 09:38 by Lio Pichardo MD) Back pain M54.9 Carpal tunnel syndrome G56.00 Diabetes E11.9 Fatigue R53.83 H/O: hysterectomy Z98.890, Z90.710 Kidney disease N28.9 Kidney stones N20.0 Migraines G43.909 Stomach ulcer K25.9 Thyroid disease E07.9 Allergies ciprofloxacin [From Cipro] Allergy (Verified 04/04/19 18:56) Swelling ciprofloxacin HCl [From Cipro] Allergy (Verified 04/04/19 18:56) Swelling codeine Allergy (Verified 04/04/19 18:56) Hives ibuprofen Allergy (Verified 04/04/19 18:56) Hives naproxen Allergy (Verified 04/04/19 18:56) Hives Penicillins Allergy (Verified 04/04/19 18:56) Hives tramadol HCl [From Ultram] Allergy (Verified 04/04/19 18:56) Hives ketorolac [From Toradol] Adverse Reaction (Verified 04/04/19 18:56) Vomiting Home Medications: Ambulatory Orders Medication Instructions Recorded insulin glargine (U- 100) 100 12 unit SC BID ml 12/10/17 unit/mL subcutaneous solution insulin lispro (U- 100) 100 32 unit SC QACDINNER 12/10/17 unit/mL subcutaneous cartridge Rizatriptan Benzoate [Maxalt] 10 mg PO PRN PRN 12/27/17 Levothyroxine [Synthroid] 125 mcg PO DAILY 04/05/18 Omeprazole 40 mg PO DAILY 03/01/19 Surgical History: Surgical History (Last Reviewed 04/08/19 @ 09:38 by Lio Pichardo MD) Hx of section Z98.891 S/P trigger finger release Z98.890 Surgical History: cholecystectomy, hysterectomy, - - , parathyroid gland removal, cholecytectomy, L ganglion cyst wrist. 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 Paternal Family History: Family History (Last Reviewed 04/08/19 @ 09:38 by Lio Pichardo MD) Other CVA (cerebral vascular accident) Cancer Diabetes Myocardial infarction History Items: Heart Disease - Father w/ [place]/CAD w/ PCI x 1 at 64 y/o. Review of Systems Constitutional: Denies: Chills, Fever, Weight Change HEENT: Denies: Head Aches, Sinus Congestion, Sinus Drainage Cardiovascular: Denies: Chest Pain, Palpitations Respiratory: Denies: Cough, Shortness of breath at rest, Sputum production Gastrointestinal: Reports: Abdominal Pain, - - back pain right. Denies: Nausea, Vomiting Genitourinary: Denies: Dysuria Musculoskeletal: Denies: Joint Pain, Joint Tenderness Skin: Denies: Rash, Wounds Neurological: Denies: Numbness, Tingling, Focal weakness Psychiatric: Denies: Anxiety, Depression, Homicidal Ideations, Suicidal Ideations Hematologic/ Lymphatic: Denies: Easy Bruising, Easy Bleeding Physical Exam - Physical Exam Vital Signs Temp 98.6 F 04/08/19 08:06 Pulse 67 04/08/19 08:06 Resp 16 04/08/19 08:06 BP 134/72 H 04/08/19 08:06 Pulse Ox 97 04/08/19 08:06 Intake & Output 04/06/19 04/07/19 04/08/19 23:59 23:59 23:59 Intake Total 1502.3 / 1502.3 872 / 872 Output Total 650 / 650 1200 / 1200 Balance 852.3 / 852.3 -328 / -328 Weight: 77.927 kg Intake: Oral 240 / 240 120 / 120 IV fluid/meds 1262.3 / 1262.3 752 / 752 Output: Urine 650 / 650 1200 / 1200 General: Alert, Oriented x3 HEENT: Atraumatic Oral: Moist Mucosa Neck: Supple Lungs: Normal air movement Cardiovascular: Regular rate Abdomen: Soft, Obese Laboratory Tests Past 24 Hrs 04/07/19 04/07/19 04/07/19 16:15 16:15 16:35 WBC 6.2 RBC 4.25 Hgb 13.0 Hct 38.6 MCV 90.8 MCH 30.6 MCHC 33.7 RDW 12.9 RDW Differential 42.3 Plt Count 190 MPV 10.4 Immature Gran % (Auto) 0.200 Neut % (Auto) 62.0 Lymph % (Auto) 32.7 [place] % (Auto) 4.0 Eos % (Auto) 0.6 Baso % (Auto) 0.5 Absolute Neuts (auto) 3.8 Absolute Lymphs (auto) 2.02 Total Counted Not Reportable Sodium 127 L Potassium 4.3 Chloride 97 L Carbon Dioxide 21.0 Anion Gap 9 BUN 12 Creatinine 1.24 H Estim Creat Clear Calc 36.82 Est GFR (MDRD) Af Amer 58 L Est GFR (MDRD) Non-Af 48 L BUN/Creatinine Ratio 9.7 L Glucose 740 H* Calcium 8.5 Total Bilirubin 0.30 AST 40 H ALT 39 Alkaline Phosphatase 81 Total Protein 7.3 Albumin 3.7 Globulin 3.6 Albumin/Globulin Ratio 1.0 Lipase 265 Urine Color Yellow Urine Clarity Cloudy Urine pH 5.0 Ur Specific [place] 1.010 Urine Protein 15 H Urine Glucose (UA) 1000 H Urine Ketones Negative Urine Occult Blood 250 H Urine Nitrite Negative Urine Bilirubin Negative Urine Urobilinogen Normal Ur Leukocyte Esterase 100 H Urine RBC > 100 SEEN Urine WBC 0 SEEN Ur Squamous Epith Cells 0-5 SEEN Urine Bacteria 0 SEEN Urine Mucus 0 SEEN 04/08/19 06:24 WBC RBC Hgb Hct MCV MCH MCHC RDW RDW Differential Plt Count MPV Immature Gran % (Auto) Neut % (Auto) Lymph % (Auto) [place] % (Auto) Eos % (Auto) Baso % (Auto) Absolute Neuts (auto) Absolute Lymphs (auto) Total Counted Sodium 137 Potassium 3.7 Chloride 109 H Carbon Dioxide 25.0 Anion Gap 3 L BUN 10 Creatinine 0.79 Estim Creat Clear Calc 57.79 Est GFR (MDRD) Af Amer 97 Est GFR (MDRD) Non-Af 80 BUN/Creatinine Ratio 12.6 Glucose 210 H Calcium 7.6 L Total Bilirubin AST ALT Alkaline Phosphatase Total Protein Albumin Globulin Albumin/Globulin Ratio Lipase Urine Color Urine Clarity Urine pH Ur Specific [place] Urine Protein Urine Glucose (UA) Urine Ketones Urine Occult Blood Urine Nitrite Urine Bilirubin Urine Urobilinogen Ur Leukocyte Esterase Urine RBC Urine WBC Ur Squamous Epith Cells Urine Bacteria Urine Mucus Assessment/Plan All Active Problems (Last Updated 12/10/17 @ 13:41 by Angelika De La Torre) Infection of tooth (Acute) Gross hematuria (Acute) Hematuria (Acute) Acute kidney injury (Acute) etiology of her right back pain is unclear ct scan of kidneys ok, u/s of kidneys ok might be other pathology?? call me with questions. can follow up out patient with her Urologist at [facility] for cysto.
--- NOTE | 2019-04-08 10:37 | CM.UR ---
RN CM Assessment Met face to face with patient for initial transition planning/care coordination assessment. Introduced myself and my role. Verb understanding and agreement for assessment. Presentation: Presented with right sided abd pain. Blood sugar 740 PCP: Annie Specialists: Nasir (carpal tunnel) Preferred Pharmacy: [facility] Insurance: [employer] Prescription Benefit: Yes through [employer]. No copays. LNOK: La[place] Home: mobile home w/5 steps in. steps w/railing. ADLs: Independent. Transportation: Drives DME: glucometer. Denies anything else. SNF/HHC: denies Passport/waiver regional controller: denies Advance Directives: None. Declines information. Instructed to notify CM if changes mind. DC PLAN: Home, no needs anticipated. Denies needs. Parisa Cao RN, CCM.
[2019-04-08] MEDS: Ceftriaxone 1 GM/50 ML BAG IV (10:46)
[2019-04-08 10:55] LABS: Bedside Glucose 262 mg/dL (70-110)
[2019-04-08] MEDS: oxyCODONE 5 MG Tablet PO ×2 (11:41→20:06)
--- NOTE | 2019-04-08 13:09 | PCM.PROGNOTE ---
<Ángel Almaguer - Last Filed: 04/08/19 13:09> Subjective: Pt with ongoing 9/10 right flank pain, right abdominal pain, and severe nausea. No vomiting today. Urine is clear yellow. No jenny blood present today. No fever/chills. No dysuria. - Physical Exam General: Alert, Oriented x3, Cooperative HEENT: Atraumatic, PERRLA, EOMI, Normocephalic Neck: Supple, No JVD, Negative Carotid Bruits Lungs: Clear to auscultation, Normal air movement Cardiovascular: Regular rate, No murmurs Abdomen: Bowel Sounds Present, Soft, Non Tender, Tender - RLQ, + CVA tenderness Extremities: No edema, Capillary Refill Less than 3 Seconds Skin: No rashes, No breakdown Musculoskeletal: No Tenderness to Palpation of Joints or Extremities Neurological: Cranial nerves II-XII grossly intact Psych/Mental Status: Normal Affect, Appropriate, Alert and oriented to time, place, person, mood and affect Vital Signs Temp Pulse Resp BP Pulse Ox 98.6 F 67 16 134/72 H 97 04/08/19 08:06 04/08/19 08:06 04/08/19 08:06 04/08/19 08:06 04/08/19 08:06 Oxygen Delivery Method Room Air Weight: 171 lb 11.841 oz Body Mass Index (BMI) 33.5 Finger Stick Blood Glucose 383 Intake and Output for Last 24 Hours 04/06/19 04/07/19 04/08/19 23:59 23:59 23:59 Intake Total 1502.3 / 1502.3 1175.5 / 1175.5 Output Total 650 / 650 1200 / 1200 Balance 852.3 / 852.3 -24.5 / -24.5 Laboratory Tests Past 24 Hrs 04/07/19 04/07/19 04/07/19 16:15 16:15 16:35 WBC 6.2 RBC 4.25 Hgb 13.0 Hct 38.6 MCV 90.8 MCH 30.6 MCHC 33.7 RDW 12.9 RDW Differential 42.3 Plt Count 190 MPV 10.4 Immature Gran % (Auto) 0.200 Neut % (Auto) 62.0 Lymph % (Auto) 32.7 [place] % (Auto) 4.0 Eos % (Auto) 0.6 Baso % (Auto) 0.5 Absolute Neuts (auto) 3.8 Absolute Lymphs (auto) 2.02 Total Counted Not Reportable Sodium 127 L Potassium 4.3 Chloride 97 L Carbon Dioxide 21.0 Anion Gap 9 BUN 12 Creatinine 1.24 H Estim Creat Clear Calc 36.82 Est GFR (MDRD) Af Amer 58 L Est GFR (MDRD) Non-Af 48 L BUN/Creatinine Ratio 9.7 L Glucose 740 H* Calcium 8.5 Total Bilirubin 0.30 AST 40 H ALT 39 Alkaline Phosphatase 81 Total Protein 7.3 Albumin 3.7 Globulin 3.6 Albumin/Globulin Ratio 1.0 Lipase 265 Urine Color Yellow Urine Clarity Cloudy Urine pH 5.0 Ur Specific [place] 1.010 Urine Protein 15 H Urine Glucose (UA) 1000 H Urine Ketones Negative Urine Occult Blood 250 H Urine Nitrite Negative Urine Bilirubin Negative Urine Urobilinogen Normal Ur Leukocyte Esterase 100 H Urine RBC > 100 SEEN Urine WBC 0 SEEN Ur Squamous Epith Cells 0-5 SEEN Urine Bacteria 0 SEEN Urine Mucus 0 SEEN 04/08/19 06:24 WBC RBC Hgb Hct MCV MCH MCHC RDW RDW Differential Plt Count MPV Immature Gran % (Auto) Neut % (Auto) Lymph % (Auto) [place] % (Auto) Eos % (Auto) Baso % (Auto) Absolute Neuts (auto) Absolute Lymphs (auto) Total Counted Sodium 137 Potassium 3.7 Chloride 109 H Carbon Dioxide 25.0 Anion Gap 3 L BUN 10 Creatinine 0.79 Estim Creat Clear Calc 57.79 Est GFR (MDRD) Af Amer 97 Est GFR (MDRD) Non-Af 80 BUN/Creatinine Ratio 12.6 Glucose 210 H Calcium 7.6 L Total Bilirubin AST ALT Alkaline Phosphatase Total Protein Albumin Globulin Albumin/Globulin Ratio Lipase Urine Color Urine Clarity Urine pH Ur Specific [place] Urine Protein Urine Glucose (UA) Urine Ketones Urine Occult Blood Urine Nitrite Urine Bilirubin Urine Urobilinogen Ur Leukocyte Esterase Urine RBC Urine WBC Ur Squamous Epith Cells Urine Bacteria Urine Mucus POC Glucose 04/08/19 04/08/19 04/08/19 10:45 06:41 02:25 POC Glucose 262 H 213 H 126 H 04/07/19 04/07/19 04/07/19 20:51 18:42 16:28 POC Glucose 386 H 447 H > 500 H* Medical Necessity - Tobacco Use Smoking Status: Current some day smoker Tobacco Use: Cigarettes Assessment/Plan All Active Problems (Last Reviewed 04/08/19 @ 09:38 by Lio Pichardo MD) Infection of tooth (Acute) Gross hematuria (Acute) Hematuria (Acute) Acute kidney injury (Acute) 1. Hematuria, flank pain - UTI ruled out. DC abx. CT with possible dilation of right ureter, significant stool. Unremarkable per Urology and no further workup planned. Continue supportive care, aggressive bowel regimen. 2. T2DM with hyperglycemia, hyponatremia - resolved. titrate insulin to response. SSI. 3. HTN - stable 4. Hyperparathyroidism s/p parathyroidectomy 5. Hypothyroidism - synthroid 6. Nicotine abuse - patch 7. Hx migraine - prn maxalt 8. GERD - on ppi DVT ppx: SCDs DC planning: still severe pain. Home with no needs when appropriate. This patient was seen by Ángel Almaguer PA-C under the supervision of Dr. White <Uriel White - Last Filed: 04/08/19 13:36> - Physical Exam Vital Signs Temp Pulse Resp BP Pulse Ox 98.6 F 67 16 134/72 H 97 04/08/19 08:06 04/08/19 08:06 04/08/19 08:06 04/08/19 08:06 04/08/19 08:06 Oxygen Delivery Method Room Air Weight: 171 lb 11.841 oz Body Mass Index (BMI) 33.5 Finger Stick Blood Glucose 383 Intake and Output for Last 24 Hours 04/06/19 04/07/19 04/08/19 23:59 23:59 23:59 Intake Total 1502.3 / 1502.3 1175.5 / 1175.5 Output Total 650 / 650 1200 / 1200 Balance 852.3 / 852.3 -24.5 / -24.5 Laboratory Tests Past 24 Hrs 04/07/19 04/07/19 04/07/19 16:15 16:15 16:35 WBC 6.2 RBC 4.25 Hgb 13.0 Hct 38.6 MCV 90.8 MCH 30.6 MCHC 33.7 RDW 12.9 RDW Differential 42.3 Plt Count 190 MPV 10.4 Immature Gran % (Auto) 0.200 Neut % (Auto) 62.0 Lymph % (Auto) 32.7 [place] % (Auto) 4.0 Eos % (Auto) 0.6 Baso % (Auto) 0.5 Absolute Neuts (auto) 3.8 Absolute Lymphs (auto) 2.02 Total Counted Not Reportable Sodium 127 L Potassium 4.3 Chloride 97 L Carbon Dioxide 21.0 Anion Gap 9 BUN 12 Creatinine 1.24 H Estim Creat Clear Calc 36.82 Est GFR (MDRD) Af Amer 58 L Est GFR (MDRD) Non-Af 48 L BUN/Creatinine Ratio 9.7 L Glucose 740 H* Calcium 8.5 Total Bilirubin 0.30 AST 40 H ALT 39 Alkaline Phosphatase 81 Total Protein 7.3 Albumin 3.7 Globulin 3.6 Albumin/Globulin Ratio 1.0 Lipase 265 Urine Color Yellow Urine Clarity Cloudy Urine pH 5.0 Ur Specific [place] 1.010 Urine Protein 15 H Urine Glucose (UA) 1000 H Urine Ketones Negative Urine Occult Blood 250 H Urine Nitrite Negative Urine Bilirubin Negative Urine Urobilinogen Normal Ur Leukocyte Esterase 100 H Urine RBC > 100 SEEN Urine WBC 0 SEEN Ur Squamous Epith Cells 0-5 SEEN Urine Bacteria 0 SEEN Urine Mucus 0 SEEN 04/08/19 06:24 WBC RBC Hgb Hct MCV MCH MCHC RDW RDW Differential Plt Count MPV Immature Gran % (Auto) Neut % (Auto) Lymph % (Auto) [place] % (Auto) Eos % (Auto) Baso % (Auto) Absolute Neuts (auto) Absolute Lymphs (auto) Total Counted Sodium 137 Potassium 3.7 Chloride 109 H Carbon Dioxide 25.0 Anion Gap 3 L BUN 10 Creatinine 0.79 Estim Creat Clear Calc 57.79 Est GFR (MDRD) Af Amer 97 Est GFR (MDRD) Non-Af 80 BUN/Creatinine Ratio 12.6 Glucose 210 H Calcium 7.6 L Total Bilirubin AST ALT Alkaline Phosphatase Total Protein Albumin Globulin Albumin/Globulin Ratio Lipase Urine Color Urine Clarity Urine pH Ur Specific [place] Urine Protein Urine Glucose (UA) Urine Ketones Urine Occult Blood Urine Nitrite Urine Bilirubin Urine Urobilinogen Ur Leukocyte Esterase Urine RBC Urine WBC Ur Squamous Epith Cells Urine Bacteria Urine Mucus POC Glucose 04/08/19 04/08/19 04/08/19 10:45 06:41 02:25 POC Glucose 262 H 213 H 126 H 04/07/19 04/07/19 04/07/19 20:51 18:42 16:28 POC Glucose 386 H 447 H > 500 H* Code Visit Addendum: Dr. White I personally examined the patient and reviewed the chart. I agree with the above. 53-year-old female presenting with flank pain on the right as well as right abdominal pain. She had a CT scan that was noncontrasted on 04/04/2019 which was negative for stone. However on my review of the imaging there is a slight dilatation of the ureter on the right when he enters an area of bowel. She does have a history of surgery and therefore could represent adhesion. Will provide a bowel regimen to see if relieving any sort of constipation may help. However urology was consulted and did not feel like there is any intervention to be done at the moment. We will see how her pain is controlled with the bowel regimen and plan for discharge tomorrow. Her blood sugar has resolved with appropriate insulin therapy and diet. Inpatient E&M: 36974 Subs Hosp L2
[2019-04-08] MEDS: Polyethylene Glycol 3350 17 GM PACKET PO ×2 (14:45→21:36)
[2019-04-08 17:05] LABS: Bedside Glucose 128 mg/dL (70-110)
[2019-04-08 21:46] LABS: Bedside Glucose 321 mg/dL (70-110)
[2019-04-08] MEDS: MELATONIN 3 MG TABLET PO (23:15)
[2019-04-09] MEDS: oxyCODONE 5 MG Tablet PO ×3 (01:13→11:36)
[2019-04-09 02:05] VITALS: BP 123/61; PULSE 82; RESP 16; TEMP 37; O2SAT 94
[2019-04-09] MEDS: Insulin Lispro 100 UNIT/ML INSULN.PEN SQ ×3 (02:17→10:58)
[2019-04-09] MEDS: Morphine 2 MG/ML Syringe IV ×2 (02:28→08:48)
[2019-04-09] MEDS: 0.9% NaCl Peripheral Flush Adult/Peds IV ×3 (02:28→11:26)
[2019-04-09 02:45] LABS: Bedside Glucose 301 mg/dL (70-110)
[2019-04-09 03:00] VITALS: PULSE 68
[2019-04-09 06:20] VITALS: BP 104/61; PULSE 68; RESP 16; TEMP 37; O2SAT 92
[2019-04-09] MEDS: Levothyroxine 125 MCG Tablet PO (06:23)
[2019-04-09 06:35] LABS: Bedside Glucose 311 mg/dL (70-110)
[2019-04-09 07:08] VITALS: PULSE 72
[2019-04-09 08:30] VITALS: BP 127/64; PULSE 76; RESP 16; TEMP 36.8; O2SAT 96
[2019-04-09] MEDS: Insulin Lispro 100 UNIT/ML INSULN.PEN 15 UNIT SQ ×2 (08:43→10:57)
[2019-04-09] MEDS: Polyethylene Glycol 3350 17 GM PACKET PO (10:56)
[2019-04-09] MEDS: Pantoprazole Sodium 40 MG Tablet PO (10:57)
[2019-04-09] MEDS: 0.9% Normal Saline 1,000 ML 75 ML IV (11:26)
[2019-04-09 11:36] LABS: Bedside Glucose 229 mg/dL (70-110)
--- NOTE | 2019-04-09 12:37 | DCINST_ITS ---
You will use the following diet at home:: Calorie/Carbohydrate Controlled (specify 1200, 1400, etc) - 1800 deniz / day, Cardiac Your food should be the consistency of: Regular Your liquids should be the consistency of: Regular/Thin Discharge Activity: Return to Normal Activity Allergies/Adverse Reactions: Allergies ciprofloxacin [From Cipro] Allergy (Verified 04/04/19 18:56) Swelling ciprofloxacin HCl [From Cipro] Allergy (Verified 04/04/19 18:56) Swelling codeine Allergy (Verified 04/04/19 18:56) Hives ibuprofen Allergy (Verified 04/04/19 18:56) Hives naproxen Allergy (Verified 04/04/19 18:56) Hives Penicillins Allergy (Verified 04/04/19 18:56) Hives tramadol HCl [From Ultram] Allergy (Verified 04/04/19 18:56) Hives ketorolac [From Toradol] Adverse Reaction (Verified 04/08/19 10:46) Swelling Medications to take at Discharge insulin glargine (U- 100) 100 unit/mL subcutaneous solution 12 unit SC BID ml 12/10/17 insulin lispro (U- 100) 100 unit/mL subcutaneous cartridge 32 unit SC QACDINNER 12/10/17 Rizatriptan Benzoate [Maxalt] 10 mg PO PRN PRN 12/27/17 Levothyroxine [Synthroid] 125 mcg PO DAILY 04/05/18 Omeprazole 40 mg PO DAILY 03/01/19 Insulin Lispro [Humalog KwikPen] 17 unit SQ 0700 insuln.pen 04/09/19 Insulin Lispro [Humalog KwikPen] 17 unit SQ 1600 insuln.pen 04/09/19 Primary Care Physician: Jeferson Valencia III, MD [Primary Care Provider] - Please follow up with your Primary Care Physician in: 1-2 weeks Test Results: Test results from this visit will be discussed in further detail at your follow- up appointment, if applicable. Please Follow Up With: Lio Pichardo MD When: 1-2 weeks Proposed Discharge Date: 04/09/19
[2019-04-09 13:48] VITALS: BP 117/58; PULSE 78; RESP 16; TEMP 37.1; O2SAT 95
--- NOTE | 2019-04-09 14:08 | NURSING ---
Nicotine patch removed from left arm.
--- NOTE | 2019-04-09 17:24 | PCM.DC.SUM ---
<Ángel Almaguer - Last Filed: 04/09/19 17:24> Discharge Date and Diagnosis Date of Admission: 04/07/19 Date of Discharge: 04/09/19 - Primary Discharge Diagnosis Flank and hematuria, stones ruled out T2DM with hyperglycemia and hyponatremia HTN Hyperparathyroidism Hypothyroidism Nicotine abuse Hx migraine GERD - Secondary Discharge Diagnosis Chronic Problems (Last Reviewed 04/08/19 @ 09:38 by Lio Pichardo MD) Kidney stone on left side (Chronic) present with left flank pain from 5mm stone in left kidney Hyperglycemia (Chronic) Depressive disorder (Chronic) Type II diabetes mellitus, uncontrolled (Chronic) Hyperparathyroid bone disease (Chronic) HTN (hypertension) (Chronic) Personal history of urinary calculi (Chronic) Pure hypercholesterolemia (Chronic) Hospital Course and Treatment Imaging Results: US/Kidney and Bladder IMPRESSION: Negative renal ultrasound. CT/Abdomen/Pelvis without Cont IMPRESSION: No acute abdominal or pelvic pathology demonstrated on this noncontrast CT. Stable nonacute findings, as above. Consultation: Kylee - urology Operations: None Procedures: None Summary of Care Provided: Hospital Course: The patient is a 53 year old F with pmhx as above who presented to the ER with c/o flank pain and hematuria. She also had severely elevated blood sugar. CT abdomen was negative, however her symptoms were concerning obstructing stone and she was admitted and placed on IV fluids with urology consulted. UA was negative for infectious process. Renal US was obtained and was negative. Urology evaluated the patient and felt there was no acute process requiring intervention. Hgb was stable. CT showed constipation and she was given an agressive bowel regimen and she had excellent response. She continue to have severe pain. She had no tenderness on palation of the abdomen while distracted. Review of her charts revealed that she has had numerous presentations with these same symptoms for several years, and has had about 20 CTs during that time. We deferred further work up. Review of [place] demons[place] 29 controlled substance scripts from 10 providers, and filled at 3 pharmacies. We did not feel that she had an acute process warranting narcotic pain medication treatment. This appears to be an ongoing chronic issue, for which we have recommended follow up with a PCP for further workup, and possibly outpatient pain management - she lost her pain management doctor in the past per the patient. She was advised to follow up with her urologist as an outpatient in 1-2 weeks regarding her symptoms. As for her uncontrolled blood sugars, her mealtime insulins were adjusted and she had good response. She was discharged home in stable condition. This patient was seen by Ángel Almaguer PA-C under the supervision of Dr. White. [] - Physical Exam General: Alert, Oriented x3, Cooperative HEENT: Atraumatic, PERRLA, EOMI, Normocephalic Neck: Supple, No JVD, Negative Carotid Bruits Lungs: Clear to auscultation, Normal air movement Cardiovascular: Regular rate, No murmurs Abdomen: Bowel Sounds Present, Soft, Non Tender Extremities: No edema, Capillary Refill Less than 3 Seconds Skin: No rashes, No breakdown Musculoskeletal: No Tenderness to Palpation of Joints or Extremities Neurological: Cranial nerves II-XII grossly intact Psych/Mental Status: Normal Affect, Appropriate, Alert and oriented to time, place, person, mood and affect Vital Signs Temp Pulse Resp BP Pulse Ox 98.7 F 78 16 117/58 L 95 04/09/19 13:48 04/09/19 13:48 04/09/19 13:48 04/09/19 13:48 04/09/19 13:48 Oxygen Delivery Method Room Air Weight: 171 lb 11.841 oz Body Mass Index (BMI) 33.5 Finger Stick Blood Glucose 383 Intake and Output for Last 24 Hours 04/07/19 04/08/19 04/09/19 23:59 23:59 23:59 Intake Total 1502.3 / 1502.3 2015.5 / 2014.5 726.6 / 726.6 Output Total 650 / 650 1300 / 1300 1300 / 1300 Balance 852.3 / 852.3 715.5 / 715.5 -573.4 / -573.4 POC Glucose 04/09/19 04/09/19 04/09/19 10:55 06:29 02:15 POC Glucose 229 H 311 H 301 H 04/08/19 21:32 POC Glucose 321 H Discharge Diet: Low fat/ Low Cholesterol, 1800 Calorie Control Diet, 2000 mg Sodium Diet Discharge Activity: Return to Normal Activity Home Medications: Medications to take at Discharge insulin glargine (U- 100) 100 unit/mL subcutaneous solution 12 unit SC BID ml 12/10/17 insulin lispro (U- 100) 100 unit/mL subcutaneous cartridge 32 unit SC QACDINNER 12/10/17 Rizatriptan Benzoate [Maxalt] 10 mg PO PRN PRN 12/27/17 Levothyroxine [Synthroid] 125 mcg PO DAILY 04/05/18 Omeprazole 40 mg PO DAILY 03/01/19 Insulin Lispro [Humalog KwikPen] 17 unit SQ 0700 insuln.pen 04/09/19 Insulin Lispro [Humalog KwikPen] 17 unit SQ 1600 insuln.pen 04/09/19 Primary Care Physician: Jeferson Valencia III, MD [Primary Care Provider] - Please follow up with your Primary Care Physician in: 1-2 weeks Please Follow Up With: Lio Pichardo MD When: 1-2 weeks Medical Necessity - Tobacco Use Smoking Status: Current some day smoker Tobacco Use: Cigarettes Meaningful Use Info Meaningful Use Diagnoses (Choose all that apply): None applicable <Uriel White F - Last Filed: 04/10/19 08:24> Discharge Date and Diagnosis - Secondary Discharge Diagnosis Chronic Problems (Last Reviewed 04/08/19 @ 09:38 by Lio Pichardo MD) Kidney stone on left side (Chronic) present with left flank pain from 5mm stone in left kidney Hyperglycemia (Chronic) Depressive disorder (Chronic) Type II diabetes mellitus, uncontrolled (Chronic) Hyperparathyroid bone disease (Chronic) HTN (hypertension) (Chronic) Personal history of urinary calculi (Chronic) Pure hypercholesterolemia (Chronic) Hospital Course and Treatment Summary of Care Provided: The patient is a 53 year old F [] - Physical Exam Vital Signs Temp Pulse Resp BP Pulse Ox 98.7 F 78 16 117/58 L 95 04/09/19 13:48 04/09/19 13:48 04/09/19 13:48 04/09/19 13:48 04/09/19 13:48 Oxygen Delivery Method Room Air Weight: 171 lb 11.841 oz Body Mass Index (BMI) 33.5 Finger Stick Blood Glucose 383 Intake and Output for Last 24 Hours 04/08/19 04/09/19 04/10/19 23:59 23:59 23:59 Intake Total 2015.5 / 2014.5 726.6 / 726.6 Output Total 1300 / 1300 1300 / 1300 Balance 715.5 / 715.5 -573.4 / -573.4 POC Glucose 04/09/19 10:55 POC Glucose 229 H Code Visit Addendum: Dr. White I personally examined the patient and reviewed the chart. I agree with the above. 53-year-old female presenting with flank pain on the right as well as right abdominal pain. She had a CT scan that was noncontrasted on 04/04/2019 which was negative for stone. However on my review of the imaging there is a slight dilatation of the ureter on the right when it enters an area of bowel. She does have a history of surgery and therefore could represent adhesion. Urology evaluated the patient and did not feel anything emergent needed to be done and she could follow-up as an outpatient. She contiued to have pain and therefore a CT abd/pelvis with contrast was ordered to see if there would be any improved diagnostic ability. This was cancelled after I examined her and she had pain with palpation, but did not have pain when palpated with my stethoscope. On review of her medical history, she has had something like 20 CT scans in addiction to multiple xrays over the last 5 years. I discussed with her that she has had too many and that her cancer risk was elevated because of it and to try to see her oupatient PCP prior to coming to the ER, in the hopes of mitigating the number of CT scans. Also on review of her PDMP, she has had multiple prescription for narcotics by multiple providers this year and therefore I could not give her more. She will be discharged home with outpatient follow-up. Her VSS were stable and her labs were unremarkable. She still has hematuria which can be managed as an outpatient. Inpatient E&M: 83288 Subs Hosp L3
--- NOTE | 2019-04-10 15:26 | CASEMGMT ---
MADDISON RUDOLPH DC PHONE CALL DC DATE: 04/08/19 DC Disposition: Home LACE/STRATA: 05/02 Intro role of CM to patient via phone. Reviewed home medications. Pt states she is still having pain. Instructed pt if pain worsens or is concerning to her, to call PCP. Pt states she has appointment with her PCP on . No care improvement suggestions given. Elliott QUINTANA RN AC
== END 2019-04-09 14:18 | disposition home or self-care (01) | DRG 251 ==
LOC: ED 17:30 → PCU 17:44
PROVIDERS: Admitting Provider Internal Medicine; Emergency Provider Emergency Medicine; Family Provider Family Medicine; PCP Family Medicine; Visit Provider Family Medicine
DX: R10.9 Unspecified abdominal pain (principal); E11.65 Type 2 diabetes mellitus with hyperglycemia; R31.29 Other microscopic hematuria; E87.1 Hypo-osmolality and hyponatremia; E89.2 Postprocedural hypoparathyroidism; F17.210 Nicotine dependence, cigarettes, uncomplicated; E03.9 Hypothyroidism, unspecified; I10 Essential (primary) hypertension; K21.9 Gastro-esophageal reflux disease without esophagitis; Z79.4 Long term (current) use of insulin
CPT/HCPCS: 36415; 74176; 76770; 80048; 80053; 81001; 81025; 82962; 83690; 85025; 87086; 87088; 97802; 99284; J7030; A4216; J2405

== ENCOUNTER 2019-06-29 18:49 | Emergency (ER) | payer MEDICAID, SELFPAY ==
[2019-04-07 18:44] VITALS: BMI 33.5
[2019-06-29 18:50] VITALS: BP 134/78; PULSE 100; RESP 16; TEMP 35.9; O2SAT 96; BMI 33.3
--- NOTE | 2019-06-29 19:03 | CT_ITS ---
STUDY: CT ABDOMEN AND PELVIS WITHOUT CONTRAST REASON FOR EXAM: Female, 53 years old. Left flank pain for 2 days. History of diabetes and kidney stones. History of cholecystectomy and hysterectomy. RADIATION DOSAGE (If Supplied By Facility): CTDIvol = ( 12.44 ) mGy, DLP = ( 615.13 ) mGycm TECHNIQUE: Transaxial images were obtained from the dome of the diaphragm to the symphysis pubis without oral contrast, and without intravenous contrast. Sagittal and coronal images were reconstructed. Individualized dose optimization techniques were used for this CT. COMPARISON: April 04, 2019. FINDINGS: The visualized lung bases are unremarkable. The heart is normal size. Small pericardial effusion versus pericardial thickening. There is a large calcified granuloma centrally in the liver. Other small peripheral calcifications are noted. There is no evidence of soft tissue mass. There are surgical clips in the gallbladder fossa consistent with a prior cholecystectomy. There is a benign calcified granuloma of the spleen. Normal pancreas. Normal bilateral adrenal glands. There is mild prominence of renal collecting system and renal pelvis without ureterectasis. There is no evidence of filling defect or mass. There is mild prominence of the left renal collecting system. There is no ureterectasis or filling defect. Normal visualized stomach. Normal small intestine. Feces and air is seen throughout the colon without marked distention. There is no mass or obstruction. There is non-visualization of the appendix. There is diffuse atherosclerotic calcification of the abdominal aorta, without a demonstrated aneurysm. Normal inferior vena cava. Normal retroperitoneum. Normal urinary bladder. There is a small uterus versus cervical portion of the uterus despite history of complete hysterectomy. There is no visualized ovaries. No pelvic lymphadenopathy. No free air or free fluid is seen within the peritoneal cavity Umbilical hernia of omental fat. The gallbladder wall is otherwise unremarkable. There are diffuse degenerative changes of the visualized lumbar spine. CT/Abdomen/Pelvis without Cont IMPRESSION: No acute intra-abdominal process or interval change. Electronically Signed: Silvestre Barone DO at 20:04 EDT Tel [phone], Service support ,
--- NOTE | 2019-06-29 19:04 | ED.DCSUM_ITS ---
History of Present Illness Chief Complaint: Flank Pain Informant: Patient Onset: Days Context: Gradual Onset Timing: Continuous Current Severity: Moderate Maximum Severity: Moderate Narrative: The patient presents to the emergency department with flank pain. States started about 2 days ago. States it waxes and wanes. She has a history of kidney stones states this feels similar. She denies any fevers or chills. She has been nauseated without vomiting. She is also noticed some hematuria. She states her blood sugars have also been elevated. She is an insulin-dependent diabetic. She denies any other recent systemic symptoms. Prior similar symptoms: Yes Recent Illness/Hospitalization: Yes Past Medical History - Allergies and Home Meds Allergies/Adverse Reactions: Allergies ciprofloxacin [From Cipro] Allergy (Verified 06/29/19 18:49) Swelling ciprofloxacin HCl [From Cipro] Allergy (Verified 06/29/19 18:49) Swelling codeine Allergy (Verified 06/29/19 18:49) Hives ibuprofen Allergy (Verified 06/29/19 18:49) Hives naproxen Allergy (Verified 06/29/19 18:49) Hives Penicillins Allergy (Verified 06/29/19 18:49) Hives tramadol HCl [From Ultram] Allergy (Verified 06/29/19 18:49) Hives ketorolac [From Toradol] Adverse Reaction (Verified 06/29/19 18:49) Swelling Primary Care Physician: Jeferson Valencia III, MD [Primary Care Provider] - Prior records reviewed: Yes Past Medical History: - - Diabetes, hypertension, kidney stone Surgical History: cholecystectomy, hysterectomy, - - , parathyroid gland removal, cholecytectomy, L ganglion cyst wrist. Smoking Status: Current some day smoker - Family History Maternal Family History: Family History (Last Reviewed 04/08/19 @ 09:38 by Lio Pichardo MD) Other CVA (cerebral vascular accident) Cancer Diabetes Myocardial infarction Family History: Reports: Diabetes, Heart Disease - Mother w/ IN 55 years old. Paternal Family History: Family History (Last Reviewed 04/08/19 @ 09:38 by Lio Pichardo MD) Other CVA (cerebral vascular accident) Cancer Diabetes Myocardial infarction Family History: Reports: Heart Disease - Father w/ [place]/CAD w/ PCI x 1 at 64 y/o. Review of Systems General: Denies: Chills, Fever, Sweats Eyes: Denies: Visual changes - bilaterally, Diplopia ENT: Denies: Rhinorrhea, Sore throat Cardiovascular: Denies: Chest pain, Palpitations Respiratory: Denies: Dyspnea, Cough, Dyspnea on exertion Gastrointestinal: Reports: Abdominal pain, Nausea. Denies: Vomiting, Diarrhea, Melena, Hematochezia Genitourinary: Reports: Hematuria. Denies: Dysuria, Frequency Musculoskeletal: Reports: Back pain. Denies: Extremity Pain Skin: Denies: Rash, Wounds Neurological: Denies: Headache, Weakness, Numbness Physical Exam Vital Signs/Narrative: Vital Signs Temp Pulse Resp BP Pulse Ox 06/29/19 18:50 96.6 F L 100 16 134/78 H 96 Inital Vital Signs reviewed: Yes General: Well nourished, Well developed, No Acute Distress Head: Normocephalic, Atraumatic Eyes: Perrl, EOMI ENT: Moist mucous membranes, No rhinorrhea Neck: Supple, Nontender Cardiovascular: Regular rate, Regular rhythm, No murmurs Respiratory: No distress, CTA bilaterally, Chest nontender Abdomen: Soft, Nontender, Nondistended, Normal bowel sounds Back: Nontender, Normal Inspection Extremities: Nontender, No edema Skin: Normal color, No rash Neurological: Alert, Oriented x3, Cranial nerves II-XII grossly intact, Normal Strength, Normal Sensation Psychological: Normal affect, Normal Mood Diagnostic/Tx/Re-eval Clinical Impression(s) from Imaging Studies Abdomen/Pelvis CT 06/29/19 19:03 IMPRESSION: No acute intra-abdominal process or interval change. Electronically Signed: Silvestre Barone DO at 20:04 EDT Tel [phone], Service support , Abnormal Lab Results 06/29/19 06/29/19 06/29/19 19:05 19:05 19:20 WBC 9.5 RBC 4.78 Hgb 14.6 Hct 43.4 MCV 90.8 MCH 30.5 MCHC 33.6 RDW Std Deviation 41.7 RDW Coeff of Anisa 12.6 Plt Count 224 MPV 10.7 Immature Gran % (Auto) 0.200 Neut % (Auto) 63.0 Lymph % (Auto) 31.7 Nolan % (Auto) 3.8 Eos % (Auto) 0.7 Baso % (Auto) 0.6 Absolute Neuts (auto) 6.0 Absolute Lymphs (auto) 3.01 Nucleated RBC % 0 Sodium 126 L Potassium 4.6 Chloride 91 L Carbon Dioxide 23.0 Anion Gap 12 BUN 14 Creatinine 1.41 H Estim Creat Clear Calc 32.38 Est GFR (MDRD) Af Amer 50 L Est GFR (MDRD) Non-Af 41 L BUN/Creatinine Ratio 9.9 L Glucose 639 H* Calcium 8.9 Urine Color Yellow Urine Clarity Cloudy Urine pH 5.0 Ur Specific [place] 1.010 Urine Protein 15 H Urine Glucose (UA) 1000 H Urine Ketones Negative Urine Occult Blood 250 H Urine Nitrite Negative Urine Bilirubin Negative Urine Urobilinogen Normal Ur Leukocyte Esterase 25 H Urine RBC > 100 SEEN Urine WBC 0-5 SEEN Ur Squamous Epith Cells 5-10 SEEN Amorphous Sediment 1+ URATE Urine Bacteria 0 SEEN Urine Mucus 0 SEEN - Medical Decision Making The patient presents with flank pain, hyperglycemia, and hematuria. IV was established. Patient was given analgesics and antiemetics. She did have some improvement of her pain. Her urine does show evidence of blood, but no significant evidence of infection. I did obtain CT of abdomen pelvis. There is no evidence of definitive kidney stone. I am not sure if it was a small stone in this past oral or other process. She is hyperglycemic, but has a normal anion gap. She was given fluids and insulin. Her repeat blood sugar was improving. At this point, I do feel that she is safe for outpatient therapy. She will be given a short course of analgesics for pain control and will follow up with neurology. Impression 1. Left flank pain with hematuria 2. Hyperglycemia ED Disposition - Plan for ED Patient: Instructions: KIDNEY STONE w/ Colic Prescriptions: Hydrocodone Bitart/Apap 5-325 [[place] 5MG-325MG] 1 tab PO Q6H PRN PRN 2 Days #6 tab PRN Reason: Pain Prescription Printed Ondansetron [Zofran Odt] 4 mg PO Q8H PRN PRN #10 tab PRN Reason: Nausea Prescription Printed Referrals: Jeferson Valencia III, MD [Primary Care Provider] -
[2019-06-29 19:18] LABS: Absolute Lymphocyte Count 3.01 X10^3/uL (0.83-4.51); Basophil# 0.06 X10^3/uL; Basophil% 0.6 % (0-1); Eosinophil# 0.07 X10^3/uL; Eosinophils% 0.7 % (0-5); Hematocrit 43.4 % (37-47); Hemoglobin 14.6 g/dL (12.0-15.0); Lymphocyte # 3.01 X10^3/ul (4.0); Lymphocyte % 31.7 % (19-41); Mean Corp Hgb Conc 33.6 g/dL (32-36); Mean Corpuscular Hgb 30.5 pg (27.0-32.0); Mean Corpuscular Volume 90.8 fL (81-99); Mean Platelet Vol. 10.7 fl (6.2-12.0); Monocyte# 0.36 X10^3/uL; Monocyte% 3.8 % (0-10); NRBC Flagged by Analyzer 0 % (0-5); Neutrophil # 5.99 X10^3/uL (2.7-7.7); Platelet Count 224 K/mm3 (150-450); RBC Distribution Width CV 12.6 % (11.6-14.6); RBC Distribution Width SD 41.7 fl (35.1-43.9); Red Blood Count 4.78 M/mm3 (4.2-5.4); White Blood Count 9.5 K/mm3 (4.4-11.0)
[2019-06-29] MEDS: 0.9% Normal Saline 1,000 ML 250 ML IV (19:22)
[2019-06-29 19:27] LABS: Bacteria 0 SEEN /hpf (None Seen); Mucous, Urine 0 SEEN /hpf (<or=2+)
[2019-06-29] MEDS: Morphine 4 MG/ML Syringe IV (19:27)
[2019-06-29] MEDS: proMETHazine 25 MG/ML Syringe 6.25 MG IV (19:28)
[2019-06-29 19:34] LABS: Color, Urine Yellow (Yellow); Glucose, Dipstick 1000 mg/dl (Normal); Ketone-Dipstick Negative (Negative); Leukocyte Esterase-Dipstick 25 /ul (Negative); Nitrite-Dipstick Negative (Negative); Occult Blood-Urine 250 /ul (Negative); Protein-Dipstick 15 mg/dl (Negative); Urine Bilirubin Dipstick Negative (Negative); Urine Clarity Cloudy (Clear); Urine Urobilinogen Normal (Normal)
[2019-06-29 19:51] LABS: Red Blood Cells-Urine > 100 SEEN /hpf (0-5); Squamous Epithelial Cells - UA 5-10 SEEN /hpf (5-10); White Blood Cells 0-5 SEEN /hpf (0-5)
[2019-06-29 19:52] LABS: Amorphous Sediment 1+ URATE
[2019-06-29 19:57] LABS: Anion Gap 12 (5-15); BUN 14 mg/dL (7-18); BUN/Creat Ratio 9.9 RATIO (10-20); Calcium,Total 8.9 mg/dL (8.5-10.1); Chloride 91 mmol/L (98-107); Creatinine, Serum 1.41 mg/dL (0.55-1.02); EST Glomerular Filtration Rate 41 mL/min (>60); Est Glom Filt Rate - Afr Amer 50 mL/min (>60); Estimated Creatinine Clearance 32.38 ml/min; Glucose 639 mg/dL (74-106); Potassium 4.6 mmol/L (3.5-5.1); Sodium Level 126 mmol/L (136-145)
--- NOTE | 2019-06-29 20:00 | ED.RN ---
PT GLUCOSE 759, DR. OLIVAS AWARE.
[2019-06-29] MEDS: Insulin Lispro 100 UNIT/ML INSULN.PEN 20 UNIT SC (20:08)
[2019-06-29] MEDS: 0.9% Normal Saline 1,000 ML 999 ML IV (20:23)
[2019-06-29] MEDS: HYDROcodone Bitartrate/Apap 5/325 Tablet PO (20:40)
[2019-06-29] MEDS: Insulin Lispro 100 UNIT/ML INSULN.PEN 30 UNIT SC (20:50)
[2019-06-29 20:51] LABS: Bedside Glucose > 500 mg/dL (70-110)
[2019-06-29 21:11] VITALS: BP 144/67; PULSE 54; RESP 16; O2SAT 97
[2019-06-29 21:25] LABS: Bedside Glucose 425 mg/dL (70-110)
[2019-06-29 21:36] VITALS: BP 147/74; PULSE 54; RESP 16; O2SAT 96
== END 2019-06-29 21:37 | disposition home or self-care (01) ==
PROVIDERS: Emergency Provider Emergency Medicine; Family Provider Family Medicine; PCP Family Medicine
DX: R10.9 Unspecified abdominal pain (principal); R31.9 Hematuria, unspecified; E11.65 Type 2 diabetes mellitus with hyperglycemia; I10 Essential (primary) hypertension; Z79.4 Long term (current) use of insulin; Z82.3 Family history of stroke; Z82.49 Family history of ischemic heart disease and other diseases of the circulatory system; Z87.442 Personal history of urinary calculi; Z88.0 Allergy status to penicillin; Z88.1 Allergy status to other antibiotic agents; Z90.49 Acquired absence of other specified parts of digestive tract; Z90.710 Acquired absence of both cervix and uterus
CPT/HCPCS: 74176; 80048; 81001; 82962; 85025; 99285; J7030; A4216

== ENCOUNTER 2019-07-21 11:09 | Day surgery (SDC) | payer MEDICAID, SELFPAY ==
[2019-07-21 11:38] VITALS: BP 125/71; PULSE 69; RESP 14; TEMP 36.6; O2SAT 100; BMI 33.0
--- NOTE | 2019-07-21 12:15 | RAD_ITS ---
STUDY: X-RAY - LUMBAR SPINE REASON FOR EXAM: Female, 54 years old. Nerve block TECHNIQUE: 3 view(s) of the lumbar spine were obtained. COMPARISON: None FINDINGS: Fluoroscopy of the lumbar spine was utilized upper and 3 images suspended for interpretation. RAD/Spine 1 View Any Level IMPRESSION: Fluoroscopy during surgery. Electronically Signed: Anam Zimmer MD at 14:07 EDT Tel , Service support ,
[2019-07-21 12:16] LABS: Bedside Glucose 351 mg/dL (70-110)
[2019-07-21] MEDS: Triamcinolone Acetonide 40 MG/ML Vial (12:20)
[2019-07-21 12:56] LABS: Bedside Glucose 266 mg/dL (70-110)
--- NOTE | 2019-07-21 13:04 | PCM.OPRPT ---
Problem List (1) Other intervertebral disc degeneration, lumbar region Status: Acute (2) Other intervertebral disc degeneration, lumbar region Status: Acute (3) Intervertebral disc disorder with radiculopathy of lumbar region Status: Acute (4) Intervertebral disc disorder with radiculopathy of lumbar region Status: Acute Report of Operation Date of Procedure: 07/21/19 Pre-Operative Diagnosis: Lumbar degenerative disease and lumbar radiculopathy Post-Operative Diagnosis: Same Surgery/Procedure Performed:: Lumbar epidural steroid injection at the level of L3-4 under fluoroscopy guidance Description of Surgical Findings:: Under sterile conditions. Patient placed in the prone position, pressure points were padded, patient was ready from the nursing and the anesthesia team. After identification of the side and the target area for the block under guided fluoroscopy, the entry site was marked with marking pen. I used Betadine for sterilization of the skin, sterile draping were applied. Using 25-gauge needle to infiltrate the skin with local anesthesia using preservative-free lidocaine 0.5% injected 2.5 mL at site of entry. Using guided fluoroscopy, accessed the the posterior epidural space using 18-gauge Touhy needles under midline approach, accessed the site was assisted with lateral fluoroscopy, followed by using [id number] technique using preservative-free normal saline, negative aspiration of CSF and blood. Injected contrast solution [2.5] mL under live fluoroscopy which showed good spread of the contrast to the posterior epidural space and to the targeted area of the injection at[ 3-L4]. Injected [5] mL of mixture of preservative-free lidocaine and Kenalog [40] mg for the procedure which showed appropriate spread in the epidural space. [place] was removed, pressure dressing were applied. Patient tolerated the procedure well and was taken to the recovery. Type of Anesthesia:: MAC - Complications None
--- NOTE | 2019-07-21 13:05 | PCM.DC ---
- Discharge Diagnoses Current Active Problems: Current Active and Chronic Problems (Last Reviewed 04/08/19 @ 09:38 by Lio Pichardo MD) Other intervertebral disc degeneration, lumbar region (Acute) Other intervertebral disc degeneration, lumbar region (Acute) Intervertebral disc disorder with radiculopathy of lumbar region (Acute) Intervertebral disc disorder with radiculopathy of lumbar region (Acute) Reason(s) for Visit for Discharge Instructions: Lumbar epidural steroid injection at L3-4 You will use the following diet at home:: Calorie/Carbohydrate Controlled (specify 1200, 1400, etc), Other - Directed for diet diabetic diet she should be seeing a dietitian and primary care endocrinology Discharge Activity: Return to Normal Activity May shower in (days): 1 May resume sexual activity in: No Restrictions Weight Bearing Status: Weight bearing as tolerated Call your doctor if your incision/area has: Continuous Slow Oozing, Sudden Increased Bleeding, Increased Pain/ Swelling, Increased Redness, Swelling at the incision site Call your doctor if you observe: Fever of 101 or Higher, Coldness, Increased Pain, Numbness or Tingling, Uncontrolled pain Suture Line Care: Avoid Pulling/Pushing, Avoid Pinching/Bending Remove Dressing in (days):: 1 Instructions: What Is Osteoarthritis?, Understanding Osteoarthritis, Osteoarthritis: Managing Pain, Osteoarthritis: Tips for Daily Living, Osteoarthritis: Exercise, Osteoarthritis: Common Sites, Living with Osteoarthritis, Osteoarthritis: Coping with Pain, Osteoarthritis: Injections or Surgery Allergies/Adverse Reactions: Allergies ciprofloxacin [From Cipro] Allergy (Verified 07/21/19 11:37) Swelling ciprofloxacin HCl [From Cipro] Allergy (Verified 07/21/19 11:37) Swelling codeine Allergy (Verified 07/21/19 11:37) Hives ibuprofen Allergy (Verified 07/21/19 11:37) Hives naproxen Allergy (Verified 07/21/19 11:37) Hives Penicillins Allergy (Verified 07/21/19 11:37) Hives tramadol HCl [From Ultram] Allergy (Verified 07/21/19 11:37) Hives ketorolac [From Toradol] Adverse Reaction (Verified 07/21/19 11:37) Swelling Medications to take at Discharge insulin glargine (U-100) 100 unit/mL subcutaneous solution 35 unit SC QHS ml 12/10/17 Rizatriptan Benzoate [Maxalt] 10 mg PO PRN PRN 12/27/17 Levothyroxine [Synthroid] 125 mcg PO DAILY 04/05/18 Omeprazole 40 mg PO DAILY 03/01/19 Aspirin [Aspirin, Baby] 81 mg PO DAILY@0800 06/29/19 Gabapentin [Neurontin] 300 mg PO TID 07/20/19 Insulin Lispro [Humalog KwikPen] 12 unit SQ TID 07/20/19 Primary Care Physician: Isabelle Chung [employer] [Primary Care Provider] - Test Results: Test results from this visit will be discussed in further detail at your follow-up appointment, if applicable. Please Follow Up With: Gonzalo Nath MD
[2019-07-21 13:28] VITALS: BP 125/71; BP 99/59; PULSE 62; RESP 16; TEMP 36.7; O2SAT 95
[2019-07-21 13:35] VITALS: BP 125/71; BP 98/64; PULSE 60; RESP 16; O2SAT 95
[2019-07-21 13:40] VITALS: BP 102/65; BP 125/71; PULSE 62; RESP 16; O2SAT 97
[2019-07-21 13:45] VITALS: BP 102/60; BP 125/71; PULSE 60; RESP 16; TEMP 36.4; O2SAT 96
[2019-07-21 14:11] VITALS: BP 125/71
== END 2019-07-21 14:13 | disposition home or self-care (01) ==
LOC: SDC 11:09 → AC 11:10
PROVIDERS: Family Provider Nurse Practitioner; PCP Nurse Practitioner; Referring Provider Anesthesiology; Visit Provider Anesthesiology
PROC: 3E0S3BZ Introduction of Anesthetic Agent into Epidural Space, Percutaneous Approach (ICD-10-PCS; CPT 62322; principal; 2019-07-21 12:10)
DX: M51.16 Intervertebral disc disorders with radiculopathy, lumbar region (principal); G89.4 Chronic pain syndrome; Z79.891 Long term (current) use of opiate analgesic; M79.10 Myalgia, unspecified site; M99.53 Intervertebral disc stenosis of neural canal of lumbar region; M51.36 Other intervertebral disc degeneration, lumbar region; M51.26 Other intervertebral disc displacement, lumbar region; M47.816 Spondylosis without myelopathy or radiculopathy, lumbar region; F17.210 Nicotine dependence, cigarettes, uncomplicated
CPT/HCPCS: 64483; 72020; 82962; J7120

== ENCOUNTER 2019-08-02 19:58 | Emergency (ER) | payer MEDICAID, SELFPAY ==
[2019-08-02 19:59] VITALS: BP 156/70; PULSE 78; RESP 18; TEMP 36.6; O2SAT 100; BMI 33.2
--- NOTE | 2019-08-02 20:40 | CT_ITS ---
HISTORY: ABDOMINAL PAIN, VOMITING X2 DAYS. GALLBLADDER REMOVED, HISTORY OF KIDNEY STENTS. TECHNIQUE: Helically acquired images were obtained of the abdomen and pelvis without oral or IV contrast. A radiation dose optimization technique was used for this scan. COMPARISON: None FINDINGS: # of images incl. paperwork: 452 LUNG BASES: clear. CT abdomen: A mild degenerative disc disease. Chronic disc protrusion at the L4-L5 level with loss of disc height and partial calcification of the disc protruding posteriorly into the spinal canal. Facet arthropathy within the lower lumbar spine, perhaps greatest at the L4-L5 and L5-S1 levels The gallbladder has been resected. Liver, spleen, pancreas, and adrenal glands are normal. The kidneys are normal. Anterior abdominal wall periumbilical hernia contains minimally indurated fat. The aorta is diseased with calcific plaque, but without aneurysm. The common hepatic duct at the hepatic hilum is dilated to 15 mm. The common bile duct, just before entering into the pancreatic parenchyma is dilated to 12 mm. The pancreatic duct at the papilla is less than [address] pelvis: No ascites is present. The uterus is atrophic. The appendix is normal. Today's to image 128. The bladder is somewhat decompressed. Stool is present throughout the colon but without pathological distention. Small bowel is not distended. CT/Abdomen/Pelvis without Cont IMPRESSION: No acute disease perceived. Degenerative disc disease greatest at the L4-L5 level contributing to moderate spinal canal stenosis Individualized dose optimization techniques were used for this CT. at 2154 Reported and signed by: Errol Quinn MD Electronically Signed: Errol Quinn MD at 21:53 EDT Tel , Service support ,
--- NOTE | 2019-08-02 20:42 | ED.VIS.GEN ---
History of Present Illness Chief Complaint: Nausea/Vomiting Detail of Chief Complaint: Abdominal pain and vomiting Informant: Patient Onset: Days - 3 days Current Severity: Moderate Maximum Severity: Moderate Narrative: Patient presents with periumbilical abdominal pain along with nausea and vomiting for the past 3 days. She denies fever or chills. She states everything she is tried to eat she has vomited back up. She does report passing gas and having normal bowel movements. Prior abdominal surgeries include hysterectomy and oophorectomy along with gallbladder. - Past Medical History (1) Depressive disorder Status: Chronic (2) HTN (hypertension) Status: Chronic (3) Hyperparathyroid bone disease Status: Chronic (4) Pure hypercholesterolemia Status: Chronic (5) Type II diabetes mellitus, uncontrolled Status: Chronic Past Medical History - Allergies and Home Meds Allergies/Adverse Reactions: Allergies ciprofloxacin [From Cipro] Allergy (Verified 07/21/19 11:37) Swelling ciprofloxacin HCl [From Cipro] Allergy (Verified 07/21/19 11:37) Swelling codeine Allergy (Verified 07/21/19 11:37) Hives ibuprofen Allergy (Verified 07/21/19 11:37) Hives naproxen Allergy (Verified 07/21/19 11:37) Hives Penicillins Allergy (Verified 07/21/19 11:37) Hives tramadol HCl [From Ultram] Allergy (Verified 07/21/19 11:37) Hives ketorolac [From Toradol] Adverse Reaction (Verified 07/21/19 11:37) Swelling Primary Care Physician: Anam Dee MD [STAFF PHYSICIAN] - As Needed Prior records reviewed: Yes Past Medical History: - - Reviewed Surgical History: cholecystectomy, hysterectomy, - - , parathyroid gland removal, cholecytectomy, L ganglion cyst wrist. Smoking Status: Current every day smoker - Family History Maternal Family History: Family History (Last Reviewed 04/08/19 @ 09:38 by Lio Pichardo MD) Other CVA (cerebral vascular accident) Cancer Diabetes Myocardial infarction Family History: Reports: Diabetes, Heart Disease - Mother w/ [place] 55 years old. Paternal Family History: Family History (Last Reviewed 04/08/19 @ 09:38 by Lio Pichardo MD) Other CVA (cerebral vascular accident) Cancer Diabetes Myocardial infarction Family History: Reports: Heart Disease - Father w/ [place]/CAD w/ PCI x 1 at 64 y/o. Review of Systems General: Denies: Chills, Fever Eyes: Denies: Visual changes - bilaterally ENT: Denies: Bilateral ear pain Cardiovascular: Denies: Chest pain Respiratory: Denies: Dyspnea, Cough Gastrointestinal: Reports: Abdominal pain, Nausea, Vomiting. Denies: Diarrhea, Constipation Genitourinary: Denies: Dysuria Musculoskeletal: Denies: Back pain Skin: Denies: Rash Neurological: Denies: Headache Endocrine: Denies: Polyuria, Polydipsia Allergy: Denies: Uticaria Physical Exam Vital Signs/Narrative: Vital Signs Temp Pulse Resp BP Pulse Ox 08/02/19 19:59 98 F 78 18 156/70 H 100 Inital Vital Signs reviewed: Yes General: Well nourished, Well developed Head: Normocephalic ENT: Moist mucous membranes Neck: Supple Cardiovascular: Regular rate, Regular rhythm Respiratory: No distress, CTA bilaterally Abdomen: Soft, Tender - Moderate erika-umbilical tenderness., Hypoactive bowel sounds. Negative for: Guarding, Rebound tenderness Extremities: Nontender Skin: Normal color Neurological: Alert, Oriented x3 Psychological: Normal affect Diagnostic/Tx/Re-eval Impressions Abdomen/Pelvis CT 08/02/19 20:40 IMPRESSION: No acute disease perceived. Degenerative disc disease greatest at the L4-L5 level contributing to moderate spinal canal stenosis Individualized dose optimization techniques were used for this CT. at 2154 Reported and signed by: Errol Quinn MD Electronically Signed: Errol Quinn MD at 21:53 EDT Tel , Service support , 08/02/19 20:40 Abdomen/Pelvis without Cont [CT] Stat Laboratory Results 08/02/19 08/02/19 08/02/19 20:50 20:55 20:55 WBC 9.7 RBC 4.71 Hgb 14.5 Hct 43.0 MCV 91.3 MCH 30.8 MCHC 33.7 RDW Std Deviation 42.8 RDW Coeff of Anisa 12.8 Plt Count 302 MPV 9.6 Immature Gran % (Auto) 0.400 Neut % (Auto) 68.4 Lymph % (Auto) 26.6 [place] % (Auto) 3.7 Eos % (Auto) 0.3 Baso % (Auto) 0.6 Absolute Neuts (auto) 6.6 Absolute Lymphs (auto) 2.57 Nucleated RBC % 0 Sodium 133 L Potassium 3.5 Chloride 90 L Carbon Dioxide 33.0 H Anion Gap 10 BUN 25 H Creatinine 1.28 H Estim Creat Clear Calc 35.25 Est GFR (MDRD) Af Amer 56 L Est GFR (MDRD) Non-Af 46 L BUN/Creatinine Ratio 19.5 Glucose 437 H Calcium 8.5 Total Bilirubin 0.40 Direct Bilirubin 0.14 AST 81 H ALT 81 H Alkaline Phosphatase 84 Total Protein 7.9 Albumin 4.1 Globulin 3.8 Lipase 249 Urine Color Yellow Urine Clarity Clear Urine pH 7.0 Ur Specific [place] 1.010 Urine Protein 15 H Urine Glucose (UA) 1000 H Urine Ketones 5 H Urine Occult Blood Negative Urine Nitrite Negative Urine Bilirubin Negative Urine Urobilinogen Normal Ur Leukocyte Esterase Negative Urine RBC 0 SEEN Urine WBC 0-5 SEEN Ur Squamous Epith Cells 0-5 SEEN Urine Bacteria 0 SEEN Urine Mucus 0 SEEN - Medical Decision Making Patient was given morphine and Zofran for pain. On repeat evaluation states her pain is returning. CT scan is reviewed with her. She does have a fat-containing periumbilical hernia that is at the site of where she points as to the source of her pain. I discussed return instructions. She will follow-up with Dr. Dee as needed as she has seen him in the past. Patient in the meantime will be given [place] and Zofran for home. ED Disposition - Plan for ED Patient: Disposition: Home or Assisted Living Diagnosis: Periumbilical hernia, Vomiting Instructions: What Is a Hernia?, VOMITING (4y-Adult) Prescriptions: Hydrocodone Bitart/Apap 5-325 [[place] 5MG-325MG] 1 tab PO Q6H PRN PRN 3 Days #10 tab PRN Reason: Pain Prescription Printed Ondansetron [Zofran Odt] 4 mg PO Q8H PRN PRN #10 tab PRN Reason: Nausea Prescription Printed Referrals: Anam Dee MD [STAFF PHYSICIAN] - As Needed
[2019-08-02] MEDS: 0.9% Normal Saline 1,000 ML 1000 ML IV (21:07)
[2019-08-02] MEDS: Ondansetron 4 MG/2 ML Vial IV ×2 (21:08→22:39)
[2019-08-02] MEDS: Morphine 4 MG/ML Syringe IV ×2 (21:08→22:39)
[2019-08-02 21:10] LABS: Bacteria 0 SEEN /hpf (None Seen); Mucous, Urine 0 SEEN /hpf (<or=2+); Red Blood Cells-Urine 0 SEEN /hpf (0-5)
[2019-08-02 21:11] LABS: Absolute Lymphocyte Count 2.57 X10^3/uL (0.83-4.51); Absolute Neutrophil Count 6.6 X10^3/uL (2.0-7.7); Basophil# 0.06 X10^3/uL; Basophil% 0.6 % (0-1); Eosinophil# 0.03 X10^3/uL; Eosinophils% 0.3 % (0-5); Hemoglobin 14.5 g/dL (12.0-15.0); Lymphocyte # 2.57 X10^3/ul (4.0); Lymphocyte % 26.6 % (19-41); Mean Corp Hgb Conc 33.7 g/dL (32-36); Mean Corpuscular Hgb 30.8 pg (27.0-32.0); Mean Corpuscular Volume 91.3 fL (81-99); Mean Platelet Vol. 9.6 fl (6.2-12.0); Monocyte# 0.36 X10^3/uL; Monocyte% 3.7 % (0-10); NRBC Flagged by Analyzer 0 % (0-5); Neutrophil # 6.61 X10^3/uL (2.7-7.7); Neutrophil % 68.4 % (47-70); Platelet Count 302 K/mm3 (150-450); RBC Distribution Width CV 12.8 % (11.6-14.6); RBC Distribution Width SD 42.8 fl (35.1-43.9); Red Blood Count 4.71 M/mm3 (4.2-5.4); White Blood Count 9.7 K/mm3 (4.4-11.0)
[2019-08-02 21:15] LABS: Color, Urine Yellow (Yellow); Glucose, Dipstick 1000 mg/dl (Normal); Ketone-Dipstick 5 mg/dl (Negative); Leukocyte Esterase-Dipstick Negative /ul (Negative); Nitrite-Dipstick Negative (Negative); Occult Blood-Urine Negative /ul (Negative); Protein-Dipstick 15 mg/dl (Negative); Urine Bilirubin Dipstick Negative (Negative); Urine Clarity Clear (Clear); Urine Urobilinogen Normal (Normal)
[2019-08-02 21:24] LABS: Squamous Epithelial Cells - UA 0-5 SEEN /hpf (5-10); White Blood Cells 0-5 SEEN /hpf (0-5)
[2019-08-02 21:28] LABS: AST(SGOT) 81 U/L (15-37); Alanine Aminotransfer ALT/SGPT 81 U/L (13-56); Albumin, Serum 4.1 g/dL (3.2-5.0); Alkaline Phosphatase 84 U/L (45-117); Anion Gap 10 (5-15); BUN 25 mg/dL (7-18); BUN/Creat Ratio 19.5 RATIO (10-20); Bilirubin, Direct 0.14 mg/dL (0.00-0.30); Calcium,Total 8.5 mg/dL (8.5-10.1); Chloride 90 mmol/L (98-107); Creatinine, Serum 1.28 mg/dL (0.55-1.02); EST Glomerular Filtration Rate 46 mL/min (>60); Est Glom Filt Rate - Afr Amer 56 mL/min (>60); Estimated Creatinine Clearance 35.25 ml/min; Globulin 3.8 g/dL (2.2-4.2); Glucose 437 mg/dL (74-106); Lipase 249 U/L (73-393); Potassium 3.5 mmol/L (3.5-5.1); Protein, Total 7.9 g/dL (6.4-8.2); Sodium Level 133 mmol/L (136-145)
[2019-08-02 22:00] VITALS: BP 135/68; PULSE 69; RESP 16; O2SAT 98
[2019-08-02] MEDS: 0.9% Normal Saline 1,000 ML 150 ML IV (22:22)
[2019-08-02 22:43] VITALS: BP 131/64; PULSE 71; RESP 18; O2SAT 99
== END 2019-08-02 22:45 | disposition home or self-care (01) ==
PROVIDERS: Emergency Provider Emergency Medicine
DX: K42.9 Umbilical hernia without obstruction or gangrene (principal); R11.2 Nausea with vomiting, unspecified; E11.9 Type 2 diabetes mellitus without complications; I10 Essential (primary) hypertension; E21.3 Hyperparathyroidism, unspecified; E78.00 Pure hypercholesterolemia, unspecified; M48.061 Spinal stenosis, lumbar region without neurogenic claudication; M51.36 Other intervertebral disc degeneration, lumbar region; F32.9 Major depressive disorder, single episode, unspecified; F17.200 Nicotine dependence, unspecified, uncomplicated; Z79.82 Long term (current) use of aspirin; Z79.4 Long term (current) use of insulin; Z79.899 Other long term (current) drug therapy; Z88.1 Allergy status to other antibiotic agents; Z88.0 Allergy status to penicillin; Z90.710 Acquired absence of both cervix and uterus; Z90.49 Acquired absence of other specified parts of digestive tract
CPT/HCPCS: 74176; 80048; 80076; 81001; 83690; 85025; 96361; 96374; 96375; 96376; 99283; J7030; J2405

== ENCOUNTER 2019-09-04 16:00 | Emergency (ER) | payer MEDICAID, SELFPAY ==
[2019-09-04 16:02] VITALS: BP 156/71; PULSE 69; RESP 14; TEMP 36.6; O2SAT 99; BMI 33.0
--- NOTE | 2019-09-04 16:34 | CT_ITS ---
STUDY: CT ABDOMEN AND PELVIS WITH CONTRAST REASON FOR EXAM: Female, 54 years old. R/O UMBILICAL HERNIA. PRIOR GB AND EDMUNDO/BSO RADIATION DOSAGE (If Supplied By Facility): CTDIvol = ( 16.90 ) mGy, DLP = ( 956.77 ) mGycm TECHNIQUE: Transaxial images were obtained from the dome of the diaphragm to the symphysis pubis without oral contrast. IV Isovue 300 100 was administered. Sagittal and coronal images were reconstructed. Individualized dose optimization techniques were used for this CT. COMPARISON: CT of abdomen and pelvis dated August 02, 2019 and December 01, 2018 FINDINGS: The visualized lung bases are unremarkable. Normal liver. No intrahepatic biliary duct dilatation or liver mass. There are surgical clips in the gallbladder fossa consistent with a prior cholecystectomy. Stable postcholecystectomy CBD mild dilatation. There is a benign calcified granuloma of the spleen. Normal pancreas. Normal bilateral adrenal glands. Mild cortical lobularity and atrophy noted in both kidneys. No hydronephrosis or renal masses. No large stones. Normal visualized stomach. Normal small intestine. Normal colon. No bowel dilatation or obstruction. No free air or free fluid. The appendix is visualized and appears normal. There is diffuse atherosclerotic calcification of the abdominal aorta, without a demonstrated aneurysm. Normal inferior vena cava. Normal retroperitoneum. Normal urinary bladder. Normal abdominal wall. There are diffuse degenerative changes of the visualized lumbar spine. CT/Abdomen/Pelvis W IV Cont ONLY IMPRESSION: 1. No acute or significant of the abdomen and pelvis. 2. Small fat-containing umbilical hernia has been present since the December 01, 2018 study. Electronically Signed: Guru Byrne MD at 18:05 EST , Service support ,
--- NOTE | 2019-09-04 16:36 | ED.VISSUMM ---
- ER Visit Summary Date of Service: 09/04/19 Chief Complaint: Abdominal pain with nausea and vomiting. History of Present Illness: The patient is a 54 F insulin-dependent diabetes and prior parathyroid cancer. Prior single cholecystectomy and hysterectomy with prior C-sections. Has a known umbilical hernia has not a surgical repair of that next week by Dr. Sam Dee. States yesterday she started having abdominal pain with nausea and vomiting. States primarily in the midportion of her abdomen. She feels slightly distended. She is still having bowel movements. She denies any melena. No diarrhea. No fever. She denies any dysuria. No abdominal trauma. Physical Examination: Middle-aged female. No acute distress. Vital signs are stable and afebrile. HEENT exam unremarkable. Neck nontender no lymphadenopathy. Lungs clear to auscultation. Heart regular rhythm no murmur. Abdomen is soft mildly distended. Periumbilical tenderness. No obvious incarcerated hernia. No peritoneal signs. Right upper right lower quadrants are unremarkable. No pulsatile mass. Left upper and left lower quadrants are unremarkable. She is moving all 4 extremities. Neurologically she is awake and alert with no focal motor deficits. Test Results: BC white count of 5. Hemoglobin 13. Electrolytes unremarkable normal gap. Glucose elevated 328. Normal BUN and creatinine. Liver enzymes unremarkable lipase normal 100. CT abdomen pelvis IV contrast shows a umbilical hernia which is been seen since November. But no signs of acute obstruction. Status post cholecystectomy. Radiologist read the film and I reviewed it. Emergency Department Course and Treatment: Patient treated with IV fluids and IV Zofran. Labs and a CT abdomen pelvis with IV contrast to be obtained. P exam patient is doing well at 1855. Abdomen is benign. Treatment Plan: Discharged home with Zofran for nausea. Follow-up with her umbilical surgical repair surgery next week. Disposition: Discharge Impression: Acute abdominal pain History of umbilical hernia. History of known umbilical hernia History of diabetes History of prior cholecystectomy, hysterectomy prior C-sections. This note was generated with [employer] software. It may contain incorrect words, spelling, and punctuation that were not noted in review of the chart prior to signing ED Disposition - Plan for ED Patient: Referrals: Care Physician,No Primary [NON-STAFF] -
[2019-09-04] MEDS: Ondansetron 4 MG/2 ML Vial IV ×2 (16:49→18:16)
[2019-09-04] MEDS: morphine 8 MG/ML Syringe 6 MG IV (16:49)
[2019-09-04] MEDS: 0.9% Normal Saline 1,000 ML 1000 ML IV (16:49)
[2019-09-04 16:51] LABS: Absolute Lymphocyte Count 1.78 X10^3/uL (0.83-4.51); Absolute Neutrophil Count 3.4 X10^3/uL (2.0-7.7); Basophil# 0.03 X10^3/uL; Basophil% 0.5 % (0-1); Eosinophil# 0.02 X10^3/uL; Eosinophils% 0.4 % (0-5); Hematocrit 39.4 % (37-47); Hemoglobin 13.6 g/dL (12.0-15.0); Lymphocyte # 1.78 X10^3/ul (4.0); Lymphocyte % 32.3 % (19-41); Mean Corp Hgb Conc 34.5 g/dL (32-36); Mean Corpuscular Hgb 30.6 pg (27.0-32.0); Mean Corpuscular Volume 88.7 fL (81-99); Mean Platelet Vol. 9.6 fl (6.2-12.0); Monocyte% 5.4 % (0-10); NRBC Flagged by Analyzer 0 % (0-5); Neutrophil # 3.36 X10^3/uL (2.7-7.7); Platelet Count 237 K/mm3 (150-450); RBC Distribution Width CV 12.7 % (11.6-14.6); RBC Distribution Width SD 41.7 fl (35.1-43.9); Red Blood Count 4.44 M/mm3 (4.2-5.4); White Blood Count 5.5 K/mm3 (4.4-11.0)
[2019-09-04 17:10] LABS: BUN 7 mg/dL (7-18); Creatinine, Serum 0.76 mg/dL (0.55-1.02); Estimated Creatinine Clearance 59.37 ml/min; Glucose 328 mg/dL (74-106)
[2019-09-04 17:11] LABS: AST(SGOT) 35 U/L (15-37); Alanine Aminotransfer ALT/SGPT 43 U/L (13-56); Albumin, Serum 3.6 g/dL (3.2-5.0); Alkaline Phosphatase 74 U/L (45-117); Anion Gap 10 (5-15); BUN/Creat Ratio 9.2 RATIO (10-20); Bilirubin, Direct 0.15 mg/dL (0.00-0.30); Calcium,Total 11.7 mg/dL (8.5-10.1); Chloride 95 mmol/L (98-107); EST Glomerular Filtration Rate 83 mL/min (>60); Est Glom Filt Rate - Afr Amer 100 mL/min (>60); Globulin 3.7 g/dL (2.2-4.2); Lipase 100 U/L (73-393); Potassium 3.5 mmol/L (3.5-5.1); Protein, Total 7.3 g/dL (6.4-8.2); Sodium Level 134 mmol/L (136-145)
[2019-09-04 18:01] VITALS: RESP 16
--- NOTE | 2019-09-04 18:57 | ED.DEP ---
ED Disposition - Plan for ED Patient: Disposition: Home or Assisted Living Instructions: ABDOMINAL PAIN, Unknown Cause, (Female) Prescriptions: Ondansetron [Zofran Odt] 4 mg PO Q8H PRN PRN #10 tab PRN Reason: Nausea Prescription Printed Referrals: Anam Dee MD [STAFF PHYSICIAN] - Keep Cecilio appointment Additional Instructions: Plenty of fluids and rest. Increase diet slowly as tolerated. Zofran as needed for nausea. Follow-up with Dr. Dee and keep appointment for surgery. Return to the ER if you are feeling worse.
== END 2019-09-04 19:17 | disposition home or self-care (01) ==
PROVIDERS: Emergency Provider Emergency Medicine; Family Provider Family Medicine; PCP Family Medicine
DX: R10.9 Unspecified abdominal pain (principal); Z90.49 Acquired absence of other specified parts of digestive tract; Z90.710 Acquired absence of both cervix and uterus; Z79.4 Long term (current) use of insulin; E11.9 Type 2 diabetes mellitus without complications; K42.9 Umbilical hernia without obstruction or gangrene
CPT/HCPCS: 74177; 80048; 80076; 83690; 85025; 96361; 96374; 96375; 96376; 99283; J7030; Q9967; J2405

== ENCOUNTER 2019-10-01 20:09 | Emergency (ER) | payer MEDICAID, SELFPAY ==
[2019-10-01 20:09] VITALS: BP 159/89; PULSE 114; RESP 18; TEMP 36.3; O2SAT 99; BMI 32.2
--- NOTE | 2019-10-01 20:29 | ED.VIS.GEN ---
History of Present Illness Chief Complaint: Flank Pain Informant: Patient Onset: Today Narrative: Patient presents the emergency room with a constant sharp stabbing pain for about 12-hour duration. She describes it as being in the right flank rating towards her suprapubic region. She notes blood in her urine. She has a history of kidney stones. No vomiting or diarrhea. She has had cholecystectomy hysterectomy and . She still has her appendix. No fevers. She has tried [id number] medications at home with no relief. She had a CT scan of her abdomen pelvis last month was negative. No stones were noted by radiology. Past Medical History - Allergies and Home Meds Allergies/Adverse Reactions: Allergies ciprofloxacin [From Cipro] Allergy (Verified 10/01/19 20:34) Swelling ciprofloxacin HCl [From Cipro] Allergy (Verified 10/01/19 20:34) Swelling codeine Allergy (Verified 10/01/19 20:34) Hives ibuprofen Allergy (Verified 10/01/19 20:34) Hives naproxen Allergy (Verified 10/01/19 20:34) Hives Penicillins Allergy (Verified 10/01/19 20:34) Hives tramadol HCl [From Ultram] Allergy (Verified 10/01/19 20:34) Hives ketorolac [From Toradol] Adverse Reaction (Verified 10/01/19 20:34) Swelling Primary Care Physician: Jeferson Valencia III, MD [Primary Care Provider] - 3-5 Days if not improving Surgical History: cholecystectomy, hysterectomy, - - , parathyroid gland removal, cholecytectomy, L ganglion cyst wrist. Smoking Status: Former smoker - Family History Maternal Family History: Family History (Last Reviewed 04/08/19 @ 09:38 by Lio Pichardo MD) Other CVA (cerebral vascular accident) Cancer Diabetes Myocardial infarction Family History: Reports: Diabetes, Heart Disease - Mother w/ [place] 55 years old. Paternal Family History: Family History (Last Reviewed 04/08/19 @ 09:38 by Lio Pichardo MD) Other CVA (cerebral vascular accident) Cancer Diabetes Myocardial infarction Family History: Reports: Heart Disease - Father w/ [place]/CAD w/ PCI x 1 at 64 y/o. Review of Systems General: Denies: Chills, Fever, Sweats Eyes: Denies: Visual changes - bilaterally, Diplopia ENT: Denies: Rhinorrhea, Sore throat Cardiovascular: Denies: Chest pain, Palpitations Respiratory: Denies: Dyspnea, Cough, Dyspnea on exertion Gastrointestinal: Reports: Abdominal pain. Denies: Nausea, Vomiting, Diarrhea, Melena, Hematochezia Genitourinary: Reports: Hematuria, - - Right flank pain. Denies: Dysuria, Frequency Musculoskeletal: Denies: Back pain, Extremity Pain Skin: Denies: Rash, Wounds Neurological: Denies: Headache, Weakness, Numbness Physical Exam Vital Signs/Narrative: Vital Signs Temp Pulse Resp BP Pulse Ox 10/01/19 20:09 97.3 F L 114 H 18 159/89 H 99 General: Well nourished, Well developed, No Acute Distress Head: Normocephalic, Atraumatic Eyes: Perrl, EOMI ENT: Moist mucous membranes, No rhinorrhea Neck: Supple, Nontender Cardiovascular: Regular rate, Regular rhythm, No murmurs Respiratory: No distress, CTA bilaterally, Chest nontender Abdomen: Soft, Nontender, Nondistended, Normal bowel sounds Back: Nontender, Normal Inspection Extremities: Nontender, No edema Skin: Normal color, No rash Neurological: Alert, Oriented x3, Cranial nerves II-XII grossly intact, Normal Strength, Normal Sensation Psychological: Normal affect, Normal Mood Diagnostic/Tx/Re-eval - Medical Decision Making White count is normal. Urinalysis showed greater than 100 red blood cells 10-25 white cells and rare bacteria. CT the abdomen pelvis did not demonstrate any ureterolithiasis or sequela of recent ureterolithiasis. Blood sugar 524 but no gap and normal CO2. She received a liter of IV fluids Zofran Keflex and insulin. Patient urine will be sent for culture. Patient's hemoglobin A1c was greater than 10 at her last check. ED Disposition - Plan for ED Patient: Disposition: Home or Assisted Living Diagnosis: UTI (urinary tract infection), Hyperglycemia due to type 1 diabetes mellitus Instructions: Understanding Urinary Tract Infections (UTIs) Prescriptions: Cephalexin [Keflex] 500 mg PO 4X/DAY #28 cap Prescription Printed Ondansetron [Zofran Odt] 4 mg PO Q6H PRN PRN #10 tab PRN Reason: Nausea Prescription Printed Referrals: Jeferson Valencia III, MD [Primary Care Provider] - 3-5 Days if not improving
[2019-10-01 20:32] VITALS: RESP 16
[2019-10-01] MEDS: HYDROcodone Bitartrate/Apap 5/325 Tablet PO (20:38)
[2019-10-01 20:39] LABS: Absolute Lymphocyte Count 3.24 X10^3/uL (0.83-4.51); Absolute Neutrophil Count 6.6 X10^3/uL (2.0-7.7); Basophil# 0.05 X10^3/uL; Basophil% 0.5 % (0-1); Eosinophil# 0.04 X10^3/uL; Eosinophils% 0.4 % (0-5); Hematocrit 44.5 % (37-47); Hemoglobin 15.3 g/dL (12.0-15.0); Lymphocyte # 3.24 X10^3/ul (4.0); Lymphocyte % 31.1 % (19-41); Mean Corp Hgb Conc 34.4 g/dL (32-36); Mean Corpuscular Hgb 30.9 pg (27.0-32.0); Mean Corpuscular Volume 89.9 fL (81-99); Mean Platelet Vol. 9.8 fl (6.2-12.0); Monocyte# 0.43 X10^3/uL; Monocyte% 4.1 % (0-10); NRBC Flagged by Analyzer 0 % (0-5); Neutrophil # 6.62 X10^3/uL (2.7-7.7); Neutrophil % 63.6 % (47-70); Platelet Count 297 K/mm3 (150-450); RBC Distribution Width CV 12.4 % (11.6-14.6); RBC Distribution Width SD 40.3 fl (35.1-43.9); Red Blood Count 4.95 M/mm3 (4.2-5.4); White Blood Count 10.4 K/mm3 (4.4-11.0)
[2019-10-01 20:42] LABS: Mucous, Urine 0 SEEN /hpf (<or=2+)
[2019-10-01 20:54] LABS: Color, Urine Straw (Yellow); Glucose, Dipstick 1000 mg/dl (Normal); Ketone-Dipstick Negative (Negative); Leukocyte Esterase-Dipstick 100 /ul (Negative); Nitrite-Dipstick Negative (Negative); Occult Blood-Urine 250 /ul (Negative); Protein-Dipstick Negative (Negative); Specific Gravity, Urine 1.015 (1.002-1.030); Urine Bilirubin Dipstick Negative (Negative); Urine Clarity Cloudy (Clear); Urine Urobilinogen Normal (Normal)
[2019-10-01 21:11] LABS: Red Blood Cells-Urine > 100 SEEN /hpf (0-5); Squamous Epithelial Cells - UA 5-10 SEEN /hpf (5-10); White Blood Cells 25-50 SEEN /hpf (0-5)
[2019-10-01 21:13] LABS: Bacteria RARE /hpf (None Seen); Yeast-Urine RARE /hpf (None Seen)
[2019-10-01 21:14] LABS: Transitional Epithelial - Ur 0-5 SEEN /hpf (0-5)
--- NOTE | 2019-10-01 21:18 | CT_ITS ---
STUDY: CT ABDOMEN AND PELVIS WITHOUT CONTRAST REASON FOR EXAM: Female, 54 years old. Flank pain RADIATION DOSAGE (If Supplied By Facility): CTDIvol = ( 0 ) mGy, DLP = ( 0 ) mGycm TECHNIQUE: Transaxial images were obtained from the dome of the diaphragm to the symphysis pubis without oral contrast, and without intravenous contrast. Sagittal and coronal images were reconstructed. Individualized dose optimization techniques were used for this CT. COMPARISON: None. FINDINGS: The visualized lung bases are unremarkable. The visualized portions of the heart are within normal limits. Granulomatous calcifications in the spleen and liver. Nonvisualization of the gallbladder mild prominence extrahepatic biliary system. Normal pancreas. Normal bilateral adrenal glands. Normal right kidney. Normal left kidney. Normal visualized stomach. Normal small intestine. Normal colon. The appendix is visualized and appears normal. Calcified abdominal aorta. Normal inferior vena cava. Normal retroperitoneum. Normal urinary bladder. Normal uterus. 3.3 cm fatty umbilical hernia. Mild degenerative vertebral changes. Annular bulge with annular calcification at L4-5. CT/Abdomen/Pelvis without Cont IMPRESSION: Fatty umbilical hernia. No renal stones. No hydronephrosis. Electronically Signed: López Bashir DO at 22:13 EST Tel [phone], Service support ,
[2019-10-01 22:46] LABS: Anion Gap 10 (5-15); BUN 20 mg/dL (7-18); BUN/Creat Ratio 15.9 RATIO (10-20); Calcium,Total 9.2 mg/dL (8.5-10.1); Chloride 94 mmol/L (98-107); Creatinine, Serum 1.26 mg/dL (0.55-1.02); EST Glomerular Filtration Rate 47 mL/min (>60); Est Glom Filt Rate - Afr Amer 57 mL/min (>60); Estimated Creatinine Clearance 35.81 ml/min; Glucose 524 mg/dL (74-106); Potassium 3.8 mmol/L (3.5-5.1); Sodium Level 129 mmol/L (136-145)
[2019-10-01] MEDS: 0.9% Normal Saline 1,000 ML 999 ML IV (22:53)
[2019-10-01] MEDS: Cephalexin 250 MG Capsule 500 MG PO (22:53)
[2019-10-01] MEDS: Ondansetron ODT 4 MG Tablet PO (22:53)
[2019-10-01 22:54] VITALS: BP 133/74; PULSE 76; RESP 14; O2SAT 97
[2019-10-02 00:11] LABS: Bedside Glucose 229 mg/dL (70-110)
[2019-10-02 00:12] VITALS: BP 145/77; PULSE 76; RESP 16; O2SAT 96
== END 2019-10-02 00:14 | disposition home or self-care (01) ==
PROVIDERS: Emergency Provider Emergency Medicine; Family Provider Family Medicine; PCP Family Medicine
DX: N39.0 Urinary tract infection, site not specified (principal); E10.65 Type 1 diabetes mellitus with hyperglycemia; Z82.49 Family history of ischemic heart disease and other diseases of the circulatory system; Z82.3 Family history of stroke; Z87.442 Personal history of urinary calculi; Z87.891 Personal history of nicotine dependence; Z88.0 Allergy status to penicillin; Z88.1 Allergy status to other antibiotic agents; Z90.49 Acquired absence of other specified parts of digestive tract; Z90.710 Acquired absence of both cervix and uterus
CPT/HCPCS: 74176; 80048; 81001; 82962; 85025; 87086; 87088; 96360; 99284; J7030; A4216

== ENCOUNTER 2019-10-19 17:23 | Emergency (ER) | payer MEDICAID, SELFPAY ==
[2019-10-19 17:24] VITALS: BP 136/89; PULSE 114; RESP 17; TEMP 36.7; O2SAT 98; BMI 32.5
--- NOTE | 2019-10-19 17:50 | RAD_ITS ---
STUDY: X-RAY - RIGHT HAND REASON FOR EXAM: Female, 54 years old. Fall TECHNIQUE: 3 view(s) of the hand. COMPARISON: None. FINDINGS: Normal radiocarpal articulation. Normal distal radioulnar joint. Normal visualized carpal bones. Normal carpal articulations Normal carpometacarpal articulation of the thumb. Normal second through fifth carpometacarpal joints. Normal metacarpi. Normal metacarpophalangeal joint of the thumb. Normal interphalangeal joint of the thumb. Normal proximal and distal phalanges of the thumb. Normal metacarpophalangeal joints of the second through fifth fingers. Normal proximal and distal interphalangeal joints of the second through fifth fingers. Normal phalanges of the second through fifth fingers. The soft tissue structures are unremarkable. RAD/Hand Min 3 Views IMPRESSION: Normal x-ray examination of the hand. Electronically Signed: López Bashir DO at 18:21 EST Tel [phone], Service support ,
[2019-10-19] MEDS: oxyCODONE 5 MG Tablet PO (17:55)
--- NOTE | 2019-10-19 18:53 | ED.VIS.GEN ---
History of Present Illness Chief Complaint: Upper Extremity Injury Informant: Patient Onset: Today Current Severity: Mild Maximum Severity: Moderate Narrative: Patient had right hand surgery for trigger release 1 week ago. She states she been doing well, but was walking today and tripped. She put her right hand out to catch herself. She denies increased pain to the right hand. Sutures are still intact. - Past Medical History (1) Depressive disorder Status: Chronic (2) Type II diabetes mellitus, uncontrolled Status: Chronic (3) HTN (hypertension) Status: Chronic (4) Personal history of urinary calculi Status: Chronic (5) Pure hypercholesterolemia Status: Chronic Past Medical History - Allergies and Home Meds Allergies/Adverse Reactions: Allergies ciprofloxacin [From Cipro] Allergy (Verified 10/19/19 17:24) Swelling ciprofloxacin HCl [From Cipro] Allergy (Verified 10/19/19 17:24) Swelling codeine Allergy (Verified 10/19/19 17:24) Hives ibuprofen Allergy (Verified 10/19/19 17:24) Hives naproxen Allergy (Verified 10/19/19 17:24) Hives Penicillins Allergy (Verified 10/19/19 17:24) Hives tramadol HCl [From Ultram] Allergy (Verified 10/19/19 17:24) Hives ketorolac [From Toradol] Adverse Reaction (Verified 10/19/19 17:24) Swelling Primary Care Physician: Jeferson Valencia III, MD [Primary Care Provider] - Prior records reviewed: Yes Surgical History: cholecystectomy, hysterectomy, - - , parathyroid gland removal, cholecytectomy, L ganglion cyst wrist. Smoking Status: Former smoker - Family History Maternal Family History: Family History (Last Reviewed 04/08/19 @ 09:38 by Lio Pichardo MD) Other CVA (cerebral vascular accident) Cancer Diabetes Myocardial infarction Family History: Reports: Diabetes, Heart Disease - Mother w/ [place] 55 years old. Paternal Family History: Family History (Last Reviewed 04/08/19 @ 09:38 by Lio Pichardo MD) Other CVA (cerebral vascular accident) Cancer Diabetes Myocardial infarction Family History: Reports: Heart Disease - Father w/ [place]/CAD w/ PCI x 1 at 64 y/o. Review of Systems General: Denies: Chills, Fever Eyes: Denies: Visual changes - bilaterally ENT: Denies: Bilateral ear pain Cardiovascular: Denies: Chest pain Respiratory: Denies: Dyspnea, Cough Gastrointestinal: Denies: Abdominal pain, Nausea, Vomiting, Diarrhea Genitourinary: Denies: Dysuria Musculoskeletal: Reports: Arthralgias Skin: Denies: Rash Neurological: Denies: Headache, Parasthesia Allergy: Denies: Uticaria Physical Exam Vital Signs/Narrative: Vital Signs Temp Pulse Resp BP Pulse Ox 10/19/19 17:24 98.1 F 114 H 17 136/89 H 98 Inital Vital Signs reviewed: Yes General: Well nourished, Well developed Head: Normocephalic ENT: Moist mucous membranes Neck: Supple Cardiovascular: Regular rate, Regular rhythm Respiratory: No distress, CTA bilaterally Abdomen: Soft, Nontender Extremities: - - 2 intact surgical incisions to the right hand with sutures in place. Appropriate postop tenderness around the wounds. Slow, purposeful range of motion of all digits. Good cap refill and sensation distally. Neurological: Alert, Oriented x3 Psychological: Normal affect Diagnostic/Tx/Re-eval Impressions Hand X-Ray 10/19/19 17:50 IMPRESSION: Normal x-ray examination of the hand. Electronically Signed: López Bashir DO at 18:21 EST Tel [phone], Service support , 10/19/19 17:50 Hand Min 3 Views [RAD] Stat - Medical Decision Making Patient was given 1 tab of oxycodone here. She states that she had 3 days of Percocet after her surgery last week. She will be given a prescription for 10 tabs. She is to call her orthopedic doctor tomorrow morning. ED Disposition - Plan for ED Patient: Disposition: Home or Assisted Living Diagnosis: Contusion of right hand, Postoperative pain Instructions: CONTUSION, Hand Prescriptions: Oxycodone HCl/Acetaminophen [Percocet 5/325] 1 tablet PO Q6H PRN PRN 3 Days #10 tablet PRN Reason: Pain Transmission Status: Sent to [facility] Referrals: Adebayo Best MD [STAFF PHYSICIAN] - As soon as possible
== END 2019-10-19 19:07 | disposition home or self-care (01) ==
PROVIDERS: Emergency Provider Emergency Medicine; Family Provider Family Medicine; PCP Family Medicine
DX: S60.221A Contusion of right hand, initial encounter (principal); Z98.890 Other specified postprocedural states; W01.0XXA Fall on same level from slipping, tripping and stumbling without subsequent striking against object, initial encounter; Y93.01 Activity, walking, marching and hiking; Y92.9 Unspecified place or not applicable; E11.9 Type 2 diabetes mellitus without complications; Z87.442 Personal history of urinary calculi; Z79.4 Long term (current) use of insulin; Z79.84 Long term (current) use of oral hypoglycemic drugs; Z87.891 Personal history of nicotine dependence
CPT/HCPCS: 73130; 99283

== ENCOUNTER 2019-10-27 17:19 | Emergency (ER) | payer MEDICAID, SELFPAY ==
[2019-10-27 17:20] VITALS: BP 148/93; PULSE 103; RESP 20; TEMP 37.1; O2SAT 98; BMI 32.4
--- NOTE | 2019-10-27 18:31 | RAD_ITS ---
STUDY: X-RAY CHEST REASON FOR EXAM: Female, 54 years old. Shortness of breath TECHNIQUE: Frontal view of the chest COMPARISON: X-ray chest November 27, 2015 FINDINGS: The lungs are clear. There are no pleural effusions. There is no pneumothorax. The heart is normal in size. The visualized osseous structures are within normal limits. RAD/Chest 1 View (Portable) IMPRESSION: No acute thoracic pathology. Electronically Signed: Alexandru Garces, at 19:03 EST Tel , Service support ,
--- NOTE | 2019-10-27 18:32 | EKG12_ITS ---
Test Reason : HYPERGLYCEMIA Blood Pressure : / mmHG Vent. Rate : 087 BPM Atrial Rate : 087 BPM P-R Int : 152 ms QRS Dur : 080 ms QT Int : 384 ms P-R-T Axes : 035 -21 005 degrees QTc Int : 462 ms Normal sinus rhythm Inferior infarct , age undetermined Abnormal ECG Confirmed by OSCAR SANTANA, MIRACLE ([id number]), supervising film or videotape editor MILE MCMAHAN ([id number]) on 10/30/2019 12:54:31 PM Referred By: Confirmed By:MIRACLE MOORE MD
--- NOTE | 2019-10-27 18:47 | ED.VISSUMM ---
- ER Visit Summary Date of Service: 10/27/19 Chief Complaint: Elevated blood sugar History of Present Illness: The patient is a 54 F presenting with elevated blood sugar. Patient states she had her blood drawn at her PCP office yesterday. They called her today and advised her that her blood sugar was over 600. She states she has been feeling fatigue, dizziness, nausea. She has had elevated blood sugars in the past. She has been taking her insulin as directed. She denies fever chills. Denies chest pain or shortness of breath. Denies abdominal pain. She has nausea with no vomiting. She complains of diarrhea. Denies other complaints. Physical Examination: Vitals are stable. Patient is afebrile. HR 103. Alert no acute distress. HEENT exam is unremarkable. Neck is supple. Lungs are clear and equal bilaterally. Heart is regular and tachycardic Abdomen is soft nontender nondistended. No guarding or rebound Extremities are unremarkable. Skin is warm and dry. No focal neurologic deficit. Remainder of exam is unremarkable. Emergency Department Course and Treatment: Patient was given IV fluids. CBC unremarkable. Chemistry shows sodium 130, glucose 531, creatinine 1.11. Urinalysis shows glucose, 5-10 white blood cells. She has no dysuria. Urine culture was sent. Acetone negative. EKG is sinus rate of 87 with no acute ischemic changes. She was given insulin subcutaneously, Zofran IV. On reevaluation patient is now complaining of left lower quadrant abdominal pain. CT abdomen pelvis was obtained and shows no acute process. Repeat BGT 343, 260. On reevaluation, patient is resting comfortably. She is given prescription for Bentyl and Zofran. She was advised to monitor her glucose at home. She states the battery had run out on her glucometer. She states she will be able to change the battery and will monitor her blood sugar. She is advised follow-up with her primary care physician. Advised return to ED for worsening complaints. Disposition: Discharge home Impression: Hyperglycemia This note was generated with [employer] dictation software. It may contain incorrect words, spelling, and punctuation that were not noted in review of the chart prior to signing ED Disposition - Plan for ED Patient: Instructions: ED Diabetic Hyperglycemia Prescriptions: Dicyclomine HCl [Bentyl] 20 mg PO TIDAC #20 cap Prescription Printed Ondansetron [Zofran Odt] 4 mg PO Q8H PRN PRN #10 tab PRN Reason: Nausea Prescription Printed Referrals: Jeferson Valencia III, MD [Primary Care Provider] -
[2019-10-27] MEDS: 0.9% Normal Saline 1,000 ML 1000 ML IV (19:14)
[2019-10-27 19:15] LABS: Absolute Lymphocyte Count 2.09 X10^3/uL (0.83-4.51); Absolute Neutrophil Count 3.8 X10^3/uL (2.0-7.7); Basophil# 0.04 X10^3/uL; Basophil% 0.6 % (0-1); Eosinophil# 0.05 X10^3/uL; Eosinophils% 0.8 % (0-5); Hematocrit 39.1 % (37-47); Hemoglobin 13.2 g/dL (12.0-15.0); Lymphocyte # 2.09 X10^3/ul (4.0); Mean Corp Hgb Conc 33.8 g/dL (32-36); Mean Corpuscular Hgb 30.1 pg (27.0-32.0); Mean Corpuscular Volume 89.1 fL (81-99); Mean Platelet Vol. 9.9 fl (6.2-12.0); Monocyte# 0.32 X10^3/uL; NRBC Flagged by Analyzer 0 % (0-5); Neutrophil # 3.83 X10^3/uL (2.7-7.7); Neutrophil % 60.4 % (47-70); Platelet Count 229 K/mm3 (150-450); RBC Distribution Width CV 12.2 % (11.6-14.6); RBC Distribution Width SD 40.2 fl (35.1-43.9); Red Blood Count 4.39 M/mm3 (4.2-5.4); White Blood Count 6.3 K/mm3 (4.4-11.0)
[2019-10-27 19:20] LABS: Mucous, Urine 0 SEEN /hpf (<or=2+)
[2019-10-27 19:27] LABS: Color, Urine Yellow (Yellow); Glucose, Dipstick 1000 mg/dl (Normal); Ketone-Dipstick Negative (Negative); Leukocyte Esterase-Dipstick 100 /ul (Negative); Nitrite-Dipstick Negative (Negative); Occult Blood-Urine Negative /ul (Negative); Protein-Dipstick Negative (Negative); Urine Bilirubin Dipstick Negative (Negative); Urine Clarity Sl. Cloudy (Clear); Urine Urobilinogen Normal (Normal)
[2019-10-27 19:33] LABS: Anion Gap 9 (5-15); BUN 13 mg/dL (7-18); BUN/Creat Ratio 11.7 RATIO (10-20); Calcium,Total 8.8 mg/dL (8.5-10.1); Chloride 96 mmol/L (98-107); Creatinine, Serum 1.11 mg/dL (0.55-1.02); EST Glomerular Filtration Rate 54 mL/min (>60); Est Glom Filt Rate - Afr Amer 65 mL/min (>60); Estimated Creatinine Clearance 40.65 ml/min; Glucose 531 mg/dL (74-106); Potassium 3.8 mmol/L (3.5-5.1); Sodium Level 130 mmol/L (136-145)
[2019-10-27 19:36] LABS: Bacteria RARE /hpf (None Seen); Red Blood Cells-Urine 0-5 SEEN /hpf (0-5); Squamous Epithelial Cells - UA 0-5 SEEN /hpf (5-10); White Blood Cells 5-10 SEEN /hpf (0-5)
[2019-10-27] MEDS: Ondansetron 4 MG/2 ML Vial IV (19:50)
[2019-10-27] MEDS: Insulin Lispro 100 UNIT/ML INSULN.PEN 15 UNIT SC (19:51)
[2019-10-27 19:54] VITALS: BP 139/74; PULSE 80; RESP 12; O2SAT 98
--- NOTE | 2019-10-27 20:10 | CT_ITS ---
STUDY: CT ABDOMEN AND PELVIS WITHOUT CONTRAST REASON FOR EXAM: Female, 54 years old. Left lower quadrant pain RADIATION DOSAGE (If Supplied By Facility): DLP = ( 479.90 ) mGycm TECHNIQUE: Transaxial images were obtained from the dome of the diaphragm to the symphysis pubis without oral contrast, and without intravenous contrast. Sagittal and coronal images were reconstructed. Individualized dose optimization techniques were used for this CT. COMPARISON: CT abdomen and pelvis October 01, 2019 FINDINGS: Evaluation of the abdominal viscera is limited in the absence of intravenous contrast. The visualized lung bases are clear. The visualized portions of the heart and pericardium are within normal limits. The gallbladder has been removed. The liver is enlarged. No hepatic lesions are present. The spleen is normal in size. The pancreas demonstrates an unremarkable unenhanced appearance. The adrenal glands are within normal limits. There are no obstructing renal stones. There is no hydronephrosis. Normal visualized stomach. There is no bowel obstruction or inflammation. The aorta is normal in caliber. There is no abdominal or pelvic free air, free fluid, fluid collection or lymphadenopathy. There are no destructive osseous lesions. There is an umbilical fat-containing hernia with a sac measuring 3.[address]/Abdomen/Pelvis without Cont IMPRESSION: No acute abdominal or pelvic pathology demonstrated on this noncontrast CT. Umbilical fat-containing hernia. Electronically Signed: Alexandru Garces, at 20:42 EST Tel , Service support ,
[2019-10-27] MEDS: Morphine 4 MG/ML Syringe IV (20:28)
[2019-10-27 21:00] VITALS: BP 154/74; PULSE 83; RESP 17; O2SAT 98
[2019-10-27] MEDS: 0.9% Normal Saline 1,000 ML 999 ML IV (21:15)
[2019-10-27 21:26] LABS: Bedside Glucose 343 mg/dL (70-110)
[2019-10-27 22:31] LABS: Bedside Glucose 260 mg/dL (70-110)
--- NOTE | 2019-10-27 22:57 | ED.DEP ---
ED Disposition - Plan for ED Patient: Instructions: ED Diabetic Hyperglycemia Prescriptions: Dicyclomine HCl [Bentyl] 20 mg PO TIDAC #20 capsule Ondansetron [Zofran Odt] 4 mg PO Q8H PRN PRN #10 tablet PRN Reason: Nausea Referrals: Jeferson Valencia III, MD [Primary Care Provider] -
[2019-10-27 23:09] VITALS: BP 143/73; PULSE 72; RESP 14; O2SAT 97
== END 2019-10-27 23:14 | disposition home or self-care (01) ==
LOC: ED 18:18
PROVIDERS: Emergency Provider Emergency Medicine; Family Provider Family Medicine; PCP Family Medicine
DX: E11.65 Type 2 diabetes mellitus with hyperglycemia (principal); R10.32 Left lower quadrant pain; Z72.0 Tobacco use; Z79.4 Long term (current) use of insulin
CPT/HCPCS: 71045; 74176; 80048; 81001; 82009; 82962; 85025; 87086; 87088; 93005; 96361; 96374; 96375; 99285; J7030; A4216; J2405

== ENCOUNTER 2019-11-14 19:08 | Emergency (ER) | payer MEDICAID, SELFPAY ==
[2019-11-14 19:09] VITALS: BP 180/96; PULSE 121; RESP 18; TEMP 36.6; O2SAT 100; BMI 31.2
--- NOTE | 2019-11-14 19:35 | ED.DCSUM_ITS ---
- ER Visit Summary Date of Service: 11/14/19 Chief Complaint: Slipped on ice and fell complaining of right lower lateral rib cage pain History of Present Illness: The patient is a 54 F history of type 2 insulin- dependent diabetes. Patient states she is in her backyard today there was snow she did not realize it was ice under it slipped and fell landing on the ground that was frozen injuring her right lower lateral and posterior rib cage. Denies any head injury. No LOC. She is on no blood thinners. Denies any hematuria. No spine pain is all posterior rib cage pain. Physical Examination: Middle-aged female no acute distress vital signs stable afebrile. Pulse ox are percent on room air no signs hypoxia. H EENT exam unremarkable atraumatic pupils are reactive light. Scalp nontender. C-spine nontender. Trachea midline. Lungs clear to auscultation bilaterally. Heart tachycardic no murmur. Chest wall anteriorly nontender. Abdomen soft nontender normal bowel sounds no peritoneal signs. Right upper quadrant nontender. Pelvic girdle intact. Remedies moves all 4. Neurovascular intact. Nontender. No deformity. Normal range of motion. Back cervical, thoracic lumbar spine nontender. Is no impressive bruising. Her right posterior lateral lower rib cage is tender. There is no crepitance or subcu air. Neurologically she is awake and alert with no focal motor deficits. GCS 15. Test Results: Chest x-ray AP lateral views read by myself shows no acute abnormality. No fracture. No pneumothorax. Normal cardiac silhouette mediastinum. Emergency Department Course and Treatment: Patient treated with Balko x2 p.o. for pain. Treatment Plan: Ice to her rib cage. Motrin and Tylenol for pain. Use a pillow to support your rib cage. Follow-up with your doctor if not improving. Disposition: Discharge Impression: Slipped and fell on the ice with a right posterior rib cage contusion This note was generated with [employer] dictation software. It may contain incorrect words, spelling, and punctuation that were not noted in review of the chart prior to signing ED Disposition - Plan for ED Patient: Referrals: Jeferson Valencia III, MD [Primary Care Provider] -
[2019-11-14] MEDS: HYDROcodone Bitartrate/Apap 5/325 Tablet PO (19:37)
--- NOTE | 2019-11-14 19:45 | RAD_ITS ---
STUDY: X-RAY CHEST REASON FOR EXAM: Female, 54 years old. fall today. Rt lower rib cage pain TECHNIQUE: Frontal and lateral views of the chest. COMPARISON: None. FINDINGS: The lungs are clear and expanded. There is no demonstrated pleural abnormality. Normal size heart. Normal mediastinum and adryan. Normal visualized pulmonary arteries. Normal visualized aortic arch and descending thoracic aorta. Normal visualized thoracic spine. Normal visualized ribs, clavicles, and shoulders. There is no demonstrated abnormality of the visualized soft tissue structures of the upper abdomen. RAD/Chest PA and Lateral IMPRESSION: Normal x-ray examination of the chest. Electronically Signed: Adebayo Waggoner MD at 20:13 EST , Service support ,
--- NOTE | 2019-11-14 21:23 | DCINST.ED_ITS ---
ED Disposition - Plan for ED Patient: Disposition: Home or Assisted Living Instructions: RIB: CONTUSION vs MINOR FRACTURE Prescriptions: Hydrocodone/Acetaminophen [Arcadia 7.5-325 Tablet] 1 ea PO Q4H PRN PRN 3 Days #10 tab PRN Reason: Pain Or Fever Prescription Printed Referrals: Jeferson Valencia III, MD [Primary Care Provider] - 1 Week if not improving Additional Instructions: Ice to sore rib cage. Use a pillow to help support the ribs. Motrin and/or Arcadia for pain. Follow-up if not improving.
[2019-11-14 21:42] VITALS: BP 134/79; PULSE 82; RESP 18; O2SAT 99
--- NOTE | 2019-11-14 21:43 | ED.RN ---
THIS NURSE REVIEWED D/C INSTRUCTIONS WITH PT. PT VERBALIZED UNDERSTANDING OF INSTRUCTIONS PT DENIES FURTHER NEEDS OR QUESTIONS AT THIS TIME. P
== END 2019-11-14 21:43 | disposition home or self-care (01) ==
PROVIDERS: Emergency Provider Emergency Medicine; PCP Family Medicine
DX: S20.211A Contusion of right front wall of thorax, initial encounter (principal); W00.0XXA Fall on same level due to ice and snow, initial encounter; Y93.9 Activity, unspecified; Y92.096 Garden or yard of other non-institutional residence as the place of occurrence of the external cause; Y99.9 Unspecified external cause status; E11.9 Type 2 diabetes mellitus without complications; Z79.4 Long term (current) use of insulin
CPT/HCPCS: 71046; 99283

== ENCOUNTER 2019-11-29 12:18 | Emergency (ER) | payer MEDICAID, SELFPAY ==
[2019-11-29 12:20] VITALS: BP 137/80; PULSE 98; RESP 16; TEMP 36.8; O2SAT 98; BMI 31.7
--- NOTE | 2019-11-29 13:02 | ED.DCSUM_ITS ---
- ER Visit Summary Date of Service: 11/29/19 Chief Complaint: Left flank pain History of Present Illness: The patient is a 54 F history of diabetes, chronic back pain and prior reported kidney stones. Patient has been seen multiple times and has had numerous CAT scans for left flank pain. Most of which have been negative. She states she started having flank pain again last night. With associated nausea. No vomiting. No fever. No dysuria. She is also had loose stools but says had some drinking apple juice. Physical Examination: Middle-aged female no acute distress vital signs stable afebrile. She does not look septic or toxic. H EENT exam unremarkable. Neck nontender. Lungs clear to auscultation. Heart regular rhythm no murmur. Abdomen soft nontender normal bowel sounds no peritoneal signs. There is no reproducible abdominal or flank tenderness. Patient moving all 4 extremities. No motor deficits. Back nontender. No CVA tenderness. Neurologically she is awake alert with no focal motor deficits. Test Results: BGT equals 553. Because of that we worked her up for possible DKA. CBC was normal white count 7. Hemoglobin 14. Electrolytes showed a sodium 129. Gap of 8. Glucose is 652. Creatinine 1.3. UA was negative. Ketones were negative. After 1 L of normal saline and blood sugar came down to 480. She will now be treated with subcu insulin and a blood sugar be checked in 1 hour by the nursing staff. The patient be checked out to the afternoon physician. Emergency Department Course and Treatment: Treated with IV Toradol for pain. A urinalysis will be obtained along with a blood sugar. She has had numerous CAT scans in the past. I do not think is necessary to re-CAT scan her today. I think the risk-benefit ratio is not in favor of imaging. Repeat exam patient is doing well at 1600. Should be given subcu insulin. The nurse will recheck a blood sugar 1 hour after that she is doing well she will be discharged home. Treatment Plan: Plenty of fluids and rest. Watch her blood sugars closely. Tylenol and/or Motrin for pain. Disposition: dc Impression: Acute on chronic left flank pain History of diabetes with hyperglycemia History of prior kidney stones and chronic back pain This note was generated with [employer] dictation software. It may contain incorrect words, spelling, and punctuation that were not noted in review of the chart prior to signing ED Disposition - Plan for ED Patient: Referrals: Jeferson Valencia III, MD [Primary Care Provider] -
[2019-11-29 13:20] LABS: Bedside Glucose > 500 mg/dL (70-110)
[2019-11-29 13:21] LABS: Bacteria 0 SEEN /hpf (None Seen); Mucous, Urine 0 SEEN /hpf (<or=2+)
[2019-11-29] MEDS: 0.9% Normal Saline 1,000 ML 1000 ML IV (13:21)
[2019-11-29 13:24] LABS: Color, Urine Straw (Yellow); Glucose, Dipstick 1000 mg/dl (Normal); Ketone-Dipstick Negative (Negative); Leukocyte Esterase-Dipstick Negative /ul (Negative); Nitrite-Dipstick Negative (Negative); Occult Blood-Urine Negative /ul (Negative); Protein-Dipstick Negative (Negative); Urine Bilirubin Dipstick Negative (Negative); Urine Clarity Clear (Clear); Urine Urobilinogen Normal (Normal)
--- NOTE | 2019-11-29 13:30 | CM.ED ---
SOCIAL WORK INFORMANT: NURSE/DR. NAJERA REASON FOR REFERRAL: ED CARE PLAN MET WITH PATIENT IN ROOM. INTRODUCED ROLE AND REASON FOR REFERRAL. DISCUSSED FREQUENCY OF VISITS. PATIENT FOLLOWS WITH DR. FRANCO FOR PRIMARY CARE. PATIENT HAS PAIN MANAGEMENT APPOINTMENT WITH [facility] ON 12/04/2019. PATIENT TEARFUL THAT DR. NAJERA WILL NOT PRESCRIBE PAIN MEDICATION. EDUCATION PROVIDED ON ED CARE PLAN. PATIENT VERBALIZED UNDERSTANDING. PATIENT REPORTS HISTORY OF ANXIETY AND DEPRESSION AND IS PRESCRIBED MEDICATION BY VIELKA GRANDA AT THE [facility]. PATIENT IS SEEN IN THE OFFICE AT THE [facility] ONCE EVERY 2 MONTHS. DISCUSSED COUNSELING. PATIENT STATES PAIN MANAGEMENT IS HER MAIN STRESSOR/CONCERN. PATIENT DENIES ANY HISTORY OF SUBSTANCE ABUSE. INFORMED PATIENT WORK UP FOR ED CARE PLAN WILL BE COMPLETED AND COPY OF CARE PLAN WITH ANY ADDITIONAL RESOURCES WILL BE MAILED TO PATIENT. PATIENT IN AGREEMENT. ADDRESS: [address] [place] [address] AND CELL PHONE NUMBER [phone] VERIFIED. PLAN: HOME WITH EDUCATION ON REFERRAL FOR ED CARE PLAN DISCUSSED. Roberto ALMANZAR, DRENCHER, APPOINTMENT COORDINATOR.
[2019-11-29 13:32] LABS: Absolute Lymphocyte Count 1.88 X10^3/uL (0.83-4.51); Absolute Neutrophil Count 5.2 X10^3/uL (2.0-7.7); Basophil# 0.04 X10^3/uL; Basophil% 0.5 % (0-1); Eosinophil# 0.03 X10^3/uL; Eosinophils% 0.4 % (0-5); Hematocrit 41.7 % (37-47); Hemoglobin 14.1 g/dL (12.0-15.0); Lymphocyte # 1.88 X10^3/ul (4.0); Lymphocyte % 25.1 % (19-41); Mean Corp Hgb Conc 33.8 g/dL (32-36); Mean Corpuscular Hgb 29.9 pg (27.0-32.0); Mean Corpuscular Volume 88.3 fL (81-99); Mean Platelet Vol. 9.8 fl (6.2-12.0); Monocyte# 0.37 X10^3/uL; Monocyte% 4.9 % (0-10); NRBC Flagged by Analyzer 0 % (0-5); Neutrophil # 5.16 X10^3/uL (2.7-7.7); Neutrophil % 68.8 % (47-70); Platelet Count 257 K/mm3 (150-450); RBC Distribution Width CV 11.9 % (11.6-14.6); RBC Distribution Width SD 38.1 fl (35.1-43.9); Red Blood Count 4.72 M/mm3 (4.2-5.4); White Blood Count 7.5 K/mm3 (4.4-11.0)
[2019-11-29 13:36] LABS: Red Blood Cells-Urine 0-5 SEEN /hpf (0-5); Squamous Epithelial Cells - UA 0-5 SEEN /hpf (5-10); White Blood Cells 0-5 SEEN /hpf (0-5)
[2019-11-29 14:10] LABS: Anion Gap 8 (5-15); BUN 13 mg/dL (7-18); BUN/Creat Ratio 9.5 RATIO (10-20); Calcium,Total 8.9 mg/dL (8.5-10.1); Chloride 97 mmol/L (98-107); Creatinine, Serum 1.37 mg/dL (0.55-1.20); EST Glomerular Filtration Rate 42 mL/min (>60); Est Glom Filt Rate - Afr Amer 51 mL/min (>60); Estimated Creatinine Clearance 32.93 ml/min; Potassium 4.2 mmol/L (3.5-5.1); Sodium Level 129 mmol/L (136-145)
[2019-11-29 14:29] VITALS: RESP 18
[2019-11-29 15:01] LABS: Bedside Glucose 480 mg/dL (70-110)
[2019-11-29 15:07] LABS: Glucose 652 mg/dL (74-106)
--- NOTE | 2019-11-29 16:09 | ED.DEP ---
ED Disposition - Plan for ED Patient: Disposition: Home or Assisted Living Instructions: ABDOMINAL PAIN, Unknown Cause, (Female), ED Diabetic Hyperglycemia Referrals: Jeferson Valencia III, MD [Primary Care Provider] - 3-5 Days Additional Instructions: Fluids and rest. Watch her blood sugars closely. Medications as prescribed. Follow-up with your doctor.
[2019-11-29] MEDS: Insulin Lispro 100 UNIT/ML INSULN.PEN 15 UNIT SC (16:13)
[2019-11-29 16:31] VITALS: RESP 18
== END 2019-11-29 16:35 | disposition home or self-care (01) ==
PROVIDERS: Emergency Provider Emergency Medicine; PCP Family Medicine
DX: R10.9 Unspecified abdominal pain (principal); G89.29 Other chronic pain; E11.9 Type 2 diabetes mellitus without complications; Z87.442 Personal history of urinary calculi; M54.9 Dorsalgia, unspecified; Z72.0 Tobacco use
CPT/HCPCS: 80048; 81001; 82009; 82962; 85025; 96361; 96374; 99283; J7030; A4216

== ENCOUNTER 2020-01-01 20:08 | Emergency (ER) | payer MEDICAID, SELFPAY ==
[2020-01-01 20:08] VITALS: BP 151/88; PULSE 117; RESP 18; TEMP 36.6; O2SAT 100; BMI 29.9
[2020-01-01] MEDS: 0.9% Normal Saline 1,000 ML 1000 ML IV (20:47)
[2020-01-01] MEDS: DiphenhydrAMINE 50 MG/ML Syringe IV (20:47)
[2020-01-01] MEDS: MethylPREDNISolone 125 MG/2 ML Vial IV (20:47)
[2020-01-01 21:08] VITALS: PULSE 85; RESP 17; O2SAT 97
[2020-01-01] MEDS: Famotidine 200 MG/20 ML MDV 20 MG in 0.9% Normal Saline (Pres. free 8 ML 300 MG IV (21:09)
--- NOTE | 2020-01-01 21:11 | ED.DCSUM_ITS ---
History of Present Illness Chief Complaint: Allergic Reaction Informant: Patient Onset: Today Context: Sudden Onset Timing: Continuous Current Severity: Moderate Maximum Severity: Moderate Narrative: Patient is a 54-year-old female with history of chronic pain, insulin-dependent diabetes, hypertension. The patient presents to the emergency department with allergic reaction. She states that she was on Celebrex sometime ago for her pain. She was just restarted on it today by her pain management doctor. She took 1 dose and developed hives diffusely across her body. She describes diffuse itching. She denies any shortness of breath or difficulty swallowing. She has no history of anaphylaxis to this medication. She denies abdominal pain. She is otherwise been in her normal state of health. Prior similar symptoms: No Recent Illness/Hospitalization: No Past Medical History - Allergies and Home Meds Allergies/Adverse Reactions: Allergies celecoxib [From Celebrex] Allergy (Verified 01/01/20 20:39) Itching ciprofloxacin [From Cipro] Allergy (Verified 01/01/20 20:11) Swelling ciprofloxacin HCl [From Cipro] Allergy (Verified 01/01/20 20:11) Swelling codeine Allergy (Verified 01/01/20 20:11) Hives ibuprofen Allergy (Verified 01/01/20 20:11) Hives naproxen Allergy (Verified 01/01/20 20:11) Hives Penicillins Allergy (Verified 01/01/20 20:11) Hives tramadol HCl [From Ultram] Allergy (Verified 01/01/20 20:11) Hives ketorolac [From Toradol] Adverse Reaction (Verified 01/01/20 20:11) Swelling Primary Care Physician: Jeferson Valencia III, MD [Primary Care Provider] - Prior records reviewed: Yes Past Medical History: - - Diabetes, hypertension, chronic pain Surgical History: cholecystectomy, hysterectomy, - - , parathyroid gland removal, cholecytectomy, L ganglion cyst wrist. Smoking Status: Current every day smoker - Family History Maternal Family History: Family History (Last Reviewed 04/08/19 @ 09:[address] Lio Pichardo MD) Other CVA (cerebral vascular accident) Cancer Diabetes Myocardial infarction Family History: Reports: Diabetes, Heart Disease - Mother w/ [place] 55 years old. Paternal Family History: Family History (Last Reviewed 04/08/19 @ 09:[address] Lio Pichardo MD) Other CVA (cerebral vascular accident) Cancer Diabetes Myocardial infarction Family History: Reports: Heart Disease - Father w/ [place]/CAD w/ PCI x 1 at 64 y/o. Review of Systems General: Denies: Chills, Fever, Sweats Eyes: Denies: Visual changes - bilaterally, Diplopia ENT: Denies: Rhinorrhea, Sore throat Cardiovascular: Denies: Chest pain, Palpitations Respiratory: Denies: Dyspnea, Cough, Dyspnea on exertion Gastrointestinal: Denies: Abdominal pain, Nausea, Vomiting, Diarrhea, Melena, Hematochezia Genitourinary: Denies: Dysuria, Hematuria, Frequency Musculoskeletal: Denies: Back pain, Extremity Pain Skin: Reports: Rash. Denies: Wounds Neurological: Denies: Headache, Weakness, Numbness Physical Exam Vital Signs/Narrative: Vital Signs Temp Pulse Resp BP Pulse Ox 01/01/20 21:08 85 17 97 01/01/20 20:08 97.8 F 117 H 18 151/88 H 100 Inital Vital Signs reviewed: Yes General: Well nourished, Well developed, No Acute Distress Head: Normocephalic, Atraumatic Eyes: Perrl, EOMI ENT: Moist mucous membranes, No rhinorrhea Neck: Supple, Nontender Cardiovascular: Regular rate, Regular rhythm, No murmurs Respiratory: No distress, CTA bilaterally, Chest nontender Abdomen: Soft, Nontender, Nondistended, Normal bowel sounds Back: Nontender, Normal Inspection Extremities: Nontender, No edema Skin: Normal color, Rash - Patient has diffuse urticaria over the body. Neurological: Alert, Oriented x3, Cranial nerves II-XII grossly intact, Normal Strength, Normal Sensation Psychological: Normal affect, Normal Mood Diagnostic/Tx/Re-eval - Medical Decision Making Patient presents with acute urticaria and drug rash. She has no evidence of anaphylaxis. She has no angioedema. IV was established. Patient was treated w ith Solu-Medrol, Benadryl, and Pepcid. Within 2 hours, she is had total resolution of the rash and no recurrence of symptoms. She is counseled to not take this medication. I will keep her on a short dose of prednisone to prevent any rebound. I do feel that she is safe for discharge. She is comfortable with this plan of care. Impression 1. Allergic reaction ED Disposition - Plan for ED Patient: Instructions: ALLERGIC REACTION, Drug Prescriptions: Prednisone [Deltasone] 40 mg PO DAILY #10 tab Prescription Printed Referrals: Jeferson Valencia III, MD [Primary Care Provider] -
[2020-01-01 23:05] VITALS: BP 143/67; PULSE 75; RESP 18; O2SAT 96
--- NOTE | 2020-02-17 20:25 | CM.ED ---
Social Work ED Care Plan approved for patient. Notified patient via phone conversation. Mailed copy of ED Care Plan and resources to patient. Tracking#[id number]. ED Care Plan faxed to patient PCP. ED Care Plan entered in [employer]. Will continue to follow as needed. Travis BAR, ANJEL
== END 2020-01-01 23:06 | disposition home or self-care (01) ==
LOC: ED 21:13
PROVIDERS: Emergency Provider Emergency Medicine; PCP Family Medicine
DX: T78.40XA Allergy, unspecified, initial encounter (principal); X58.XXXA Exposure to other specified factors, initial encounter; E11.9 Type 2 diabetes mellitus without complications; I10 Essential (primary) hypertension; G89.29 Other chronic pain; F17.200 Nicotine dependence, unspecified, uncomplicated; Z79.4 Long term (current) use of insulin; Z82.3 Family history of stroke; Z82.49 Family history of ischemic heart disease and other diseases of the circulatory system; Z88.0 Allergy status to penicillin; Z88.1 Allergy status to other antibiotic agents; Z88.6 Allergy status to analgesic agent; Z90.49 Acquired absence of other specified parts of digestive tract; Z90.710 Acquired absence of both cervix and uterus
CPT/HCPCS: 96361; 96374; 96375; 99284; J7030; A4216; J3490

== ENCOUNTER 2020-07-23 16:37 | Emergency (ER) | payer MEDICAID, SELFPAY ==
[2020-07-23 16:37] VITALS: BP 172/89; PULSE 99; RESP 16; TEMP 36.1; O2SAT 100; BMI 27.3
--- NOTE | 2020-07-23 17:20 | RAD_ITS ---
STUDY: X-RAY - LEFT WRIST REASON FOR EXAM: Female, 55 years old. left wrist pain after fall TECHNIQUE: 3 view(s) of the wrist were obtained. COMPARISON: 06/02/2016 FINDINGS: Normal visualized distal radius and ulna. Normal radiocarpal articulation. Normal distal radioulnar articulation. Normal carpal bones. Normal carpal articulations. Normal carpometacarpal articulation of the thumb. Normal second through fifth carpometacarpal articulations. Normal visualized metacarpal bones. The soft tissue structures are unremarkable. RAD/Wrist min 3 Views IMPRESSION: Normal x-ray examination of the wrist. Electronically Signed: Anam Zimmer MD at 17:34 EDT Tel , Service support ,
--- NOTE | 2020-07-23 17:55 | ED.DCSUM_ITS ---
- ER Visit Summary Date of Service: 07/23/20 Chief Complaint: Left wrist pain and right ear pain History of Present Illness: The patient is a 55 F who presents with left wrist pain that began today. Patient states she was walking down some steps when she slipped and twisted her hand while she was holding onto the railing. Patient states her pain is sharp and stabbing. Patient states her pain is worse with certain movements. Patient states nothing makes the pain better. Patient also complains of right ear pain. Patient denies any hearing changes. Patient denies any fevers or chills. Patient denies any sore throat or rhinorrhea. Physical Examination: Vital signs are stable. Patient is afebrile. Patient is in no acute distress. Musculoskeletal exam reveals tenderness over the left wrist. There is no obvious deformity noted. There is mild edema. There is no ecchymosis. Range of motion was limited in all motions of the left wrist secondary to pain. Radial pulses are equal bilaterally. Sensation was intact to light touch in all digits. Capillary refill was less than 2 seconds in all digits. The tympanic membrane's were clear bilaterally. There is a mild effusion behind the right tympanic membrane. The ear canals are clear. Neck is supple. Trachea is midline. There is no JVD. Heart was regular rate and rhythm. Lungs are clear and equal bilaterally. Test Results: X-rays of the left wrist were obtained. There is no acute f racture. These were interpreted by the radiologist and reviewed by myself. Emergency Department Course and Treatment: Patient was given a Velcro wrist splint. Patient was instructed to ice and elevate the left wrist. Patient was instructed to follow-up with her primary care physician in 5 to 7 days. Patient understood and was agreeable with the plan. All questions were answered. Disposition: Discharge home Impression: Left wrist sprain This note was generated with [employer] dictation software. It may contain incorrect words, spelling, and punctuation that were not noted in review of the chart prior to signing ED Disposition - Plan for ED Patient: Disposition: Home or Assisted Living Diagnosis: Left wrist sprain Instructions: ED Sprain Wrist Referrals: Jeferosn Valencia III, MD [Primary Care Provider] - 5-7 Days
[2020-07-23 18:08] VITALS: BP 147/65; PULSE 84; RESP 15; O2SAT 98
== END 2020-07-23 18:09 | disposition home or self-care (01) ==
PROVIDERS: Emergency Provider Emergency Medicine; PCP Family Medicine
DX: S63.502A Unspecified sprain of left wrist, initial encounter (principal); W10.9XXA Fall (on) (from) unspecified stairs and steps, initial encounter; Y93.01 Activity, walking, marching and hiking
CPT/HCPCS: 73110; 99284

== ENCOUNTER 2020-09-20 16:07 | Emergency (ER) | payer MEDICAID, SELFPAY ==
[2020-09-20 16:08] VITALS: BP 157/99; PULSE 117; RESP 18; TEMP 36.5; O2SAT 100; BMI 28.1
--- NOTE | 2020-09-20 16:18 | ED.VIS.GEN ---
History of Present Illness Chief Complaint: Flank Pain Informant: Patient Onset: Yesterday Narrative: 55-year-old female with past medical history of recurrent kidney stones presents with right flank pain that radiates around to her right lower abdomen with nausea that started yesterday. Pain comes in waves. Feels like previous stones. She had hematuria, no frequency or dysuria. Has nausea but no vomiting. She states few of her previous stones have required lithotripsy and stents. Denies fevers, chills, chest pain, shortness of breath, cough, or diarrhea. Abdominal surgeries include cholecystectomy, hysterectomy. Past Medical History - Allergies and Home Meds Allergies/Adverse Reactions: Allergies celecoxib [From Celebrex] Allergy (Verified 09/20/20 16:07) Itching ciprofloxacin [From Cipro] Allergy (Verified 09/20/20 16:07) Swelling ciprofloxacin HCl [From Cipro] Allergy (Verified 09/20/20 16:07) Swelling codeine Allergy (Verified 09/20/20 16:07) Hives ibuprofen Allergy (Verified 09/20/20 16:07) Hives naproxen Allergy (Verified 09/20/20 16:07) Hives Penicillins Allergy (Verified 09/20/20 16:07) Hives tramadol HCl [From Ultram] Allergy (Verified 09/20/20 16:07) Hives ketorolac [From Toradol] Adverse Reaction (Verified 09/20/20 16:07) Swelling Primary Care Physician: Jeferson Valencia III, MD [Primary Care Provider] - Past Medical History: - - Osteoarthritis, chronic back pain, type 2 diabetes, hypothyroidism, recurrent kidney stones Surgical History: cholecystectomy, hysterectomy, - - , parathyroid gland removal, cholecytectomy, L ganglion cyst wrist. Smoking Status: Current every day smoker - Family History Maternal Family History: Family History (Last Reviewed 04/08/19 @ 09:[address] Lio Pichardo MD) Other CVA (cerebral vascular accident) Cancer Diabetes Myocardial infarction Family History: Reports: Diabetes, Heart Disease - Mother w/ [place] 55 years old. Paternal Family History: Family History (Last Reviewed 04/08/19 @ 09:[address] Lio Pichardo MD) Other CVA (cerebral vascular accident) Cancer Diabetes Myocardial infarction Family History: Reports: Heart Disease - Father w/ [place]/CAD w/ PCI x 1 at 64 y/o. Review of Systems General: Denies: Chills, Fever, Sweats Eyes: Denies: Visual changes - bilaterally, Diplopia ENT: Denies: Rhinorrhea, Sore throat Cardiovascular: Denies: Chest pain, Palpitations Respiratory: Denies: Dyspnea, Cough, Dyspnea on exertion Gastrointestinal: Reports: Abdominal pain, Nausea. Denies: Vomiting, Diarrhea, Constipation, Melena, Hematochezia Genitourinary: Reports: Hematuria. Denies: Dysuria, Frequency Musculoskeletal: Reports: Back pain. Denies: Swelling, Extremity Pain Skin: Denies: Rash, Wounds Neurological: Denies: Headache, Weakness Physical Exam Vital Signs/Narrative: Vital Signs Temp Pulse Resp BP Pulse Ox 09/20/20 16:08 97.7 F L 117 H 18 157/99 H 100 Inital Vital Signs reviewed: Yes General: Well nourished, Well developed, No Acute Distress Head: Normocephalic, Atraumatic Eyes: Perrl, EOMI ENT: Moist mucous membranes, No rhinorrhea Neck: Supple, Nontender Cardiovascular: Regular rate, Regular rhythm, No murmurs Respiratory: No distress, CTA bilaterally, Chest nontender Abdomen: Soft, Nontender, Nondistended, Normal bowel sounds Back: Nontender, Normal Inspection, CVA tenderness, - - Right CVA tenderness Extremities: Nontender, No edema Skin: Normal color, No rash Neurological: Alert, Oriented x3, Cranial nerves II-XII grossly intact, Normal Strength, Normal Sensation Psychological: Normal affect, Normal Mood Diagnostic/Tx/Re-eval Clinical Impression(s) from Imaging Studies Abdomen/Pelvis CT 09/20/20 16:30 IMPRESSION: Possible diffuse wall thickening of the bladder although it is incompletely filled. Cystitis cannot be excluded. Fatty liver with hepatomegaly. No renal stones are seen. Moderate to marked fecal retention. Electronically Signed: Lázaro Aparicio MD at 16:54 EST , Service support , Laboratory Data 09/20/20 09/20/20 09/20/20 16:15 16:15 16:25 WBC 9.1 RBC 4.65 Hgb 14.3 Hct 41.8 MCV 89.9 MCH 30.8 MCHC 34.2 RDW Std Deviation 41.2 RDW Coeff of Anisa 12.6 Plt Count 316 MPV 9.3 Immature Gran % (Auto) 0.300 Neut % (Auto) 59.5 Lymph % (Auto) 34.0 [place] % (Auto) 4.7 Eos % (Auto) 0.8 Baso % (Auto) 0.7 Absolute Neuts (auto) 5.4 Absolute Lymphs (auto) 3.11 Nucleated RBC % 0 Sodium 128 L Potassium 3.9 Chloride 93 L Carbon Dioxide 29.0 Anion Gap 6 BUN 10 Creatinine 1.05 H Estim Creat Clear Calc 42.46 Est GFR (MDRD) Af Amer 69 Est GFR (MDRD) Non-Af 57 L BUN/Creatinine Ratio 9.5 L Glucose 470 H* Calcium 9.3 Urine Color Yellow Urine Clarity Clear Urine pH 6.0 Ur Specific [place] 1.010 Urine Protein Negative Urine Glucose (UA) 1000 H Urine Ketones Negative Urine Occult Blood Negative Urine Nitrite Negative Urine Bilirubin Negative Urine Urobilinogen Normal Ur Leukocyte Esterase 25 H Urine RBC 0 SEEN Urine WBC 0 SEEN Ur Squamous Epith Cells 0-5 SEEN Urine Bacteria 1+ Urine Mucus 0 SEEN Urine Yeast 2+ - Medical Decision Making Patient presented with right flank pain and nausea. She appears well nontoxic. Vital signs show tachycardia of 117, otherwise normal. She has mild right CVA tenderness on exam. Abdomen is soft and nontender. Labs show no leukocytosis. Glucose 470 with pseudohyponatremia. Normal electrolytes and renal function. CT no acute stone. Does comment that there may be bladder wall thickening but urinalysis is negative for infection. Patient was given IV fluids and her dose of lispro 14 units which she usually takes around dinnertime. Take tylenol at home for flank pain. She was advised to continue her insulin dosing at home as prescribed and check her sugars and follow-up with her PCP. She was agreeable and discharged home in stable condition. ED Disposition - Plan for ED Patient: Disposition: Home or Assisted Living Diagnosis: Flank pain, Hyperglycemia, Hyperglycemia due to type 2 diabetes mellitus Referrals: Jeferson Valencia III, MD [Primary Care Provider] -
[2020-09-20] MEDS: Ondansetron 4 MG/2 ML Vial IV (16:27)
[2020-09-20] MEDS: Morphine 4 MG/ML Syringe IV (16:27)
[2020-09-20] MEDS: 0.9% Normal Saline 1,000 ML 250 ML IV (16:27)
[2020-09-20 16:30] LABS: Absolute Lymphocyte Count 3.11 X10^3/uL (0.83-4.51); Absolute Neutrophil Count 5.4 X10^3/uL (2.0-7.7); Basophil# 0.06 X10^3/uL; Basophil% 0.7 % (0-1); Eosinophil# 0.07 X10^3/uL; Eosinophils% 0.8 % (0-5); Hematocrit 41.8 % (37-47); Hemoglobin 14.3 g/dL (12.0-15.0); Lymphocyte # 3.11 X10^3/ul (4.0); Mean Corp Hgb Conc 34.2 g/dL (32-36); Mean Corpuscular Hgb 30.8 pg (27.0-32.0); Mean Corpuscular Volume 89.9 fL (81-99); Mean Platelet Vol. 9.3 fl (6.2-12.0); Monocyte# 0.43 X10^3/uL; Monocyte% 4.7 % (0-10); NRBC Flagged by Analyzer 0 % (0-5); Neutrophil # 5.44 X10^3/uL (2.7-7.7); Neutrophil % 59.5 % (47-70); Platelet Count 316 K/mm3 (150-450); RBC Distribution Width CV 12.6 % (11.6-14.6); RBC Distribution Width SD 41.2 fl (35.1-43.9); Red Blood Count 4.65 M/mm3 (4.2-5.4); White Blood Count 9.1 K/mm3 (4.4-11.0)
--- NOTE | 2020-09-20 16:30 | CT_ITS ---
STUDY: CT ABDOMEN AND PELVIS WITHOUT CONTRAST REASON FOR EXAM: Female, 55 years old. RIGHT FLANK PAIN AND HEMATURIA. HISTORY OF KIDNEY STONES. RADIATION DOSAGE (If Supplied By Facility): CTDIvol = ( 7.86 ) mGy, DLP = ( 359.23 ) mGycm TECHNIQUE: Transaxial images were obtained from the dome of the diaphragm to the symphysis pubis without oral contrast, and without intravenous contrast. Sagittal and coronal images were reconstructed. Individualized dose optimization techniques were used for this CT. COMPARISON: 10/27/2019. FINDINGS: The visualized lung bases are unremarkable. The visualized portions of the heart are within normal limits. There is decreased attenuation of the liver consistent with steatosis. There is hepatomegaly. There is non-visualization of the gallbladder, which may be secondary to either contraction or a prior cholecystectomy. There is a benign calcified granuloma of the spleen. Normal pancreas. Normal bilateral adrenal glands. There are no definite acute abnormalities of the kidneys. There are bilateral extrarenal pelves. No stones are seen. Evaluation of the GI tract is limited by absence of oral contrast. Cannot exclude stomach wall thickening. No dilated loops of bowel or evidence for obstruction. Cannot exclude segmental thickening of the [place]el of the small or large bowel. Cannot exclude enteritis or colitis. Moderate to marked diffuse fecal retention. Appendix within normal limits. There is diffuse atherosclerotic calcification of the abdominal aorta, without a demonstrated aneurysm. Normal inferior vena cava. Normal retroperitoneum. Cannot exclude diffuse wall thickening of the urinary bladder. Normal visualized uterus. There is a small umbilical hernia containing fat. There are diffuse degenerative changes of the visualized lumbar spine. CT/Abdomen/Pelvis without Cont IMPRESSION: Possible diffuse wall thickening of the bladder although it is incompletely filled. Cystitis cannot be excluded. Fatty liver with hepatomegaly. No renal stones are seen. Moderate to marked fecal retention. Electronically Signed: Lázaro Aparicio MD at 16:54 EST , Service support ,
[2020-09-20 16:36] LABS: Mucous, Urine 0 SEEN /hpf (<or=2+); Red Blood Cells-Urine 0 SEEN /hpf (0-5); White Blood Cells 0 SEEN /hpf (0-5)
[2020-09-20 16:38] LABS: Color, Urine Yellow (Yellow); Glucose, Dipstick 1000 mg/dl (Normal); Ketone-Dipstick Negative (Negative); Leukocyte Esterase-Dipstick 25 /ul (Negative); Nitrite-Dipstick Negative (Negative); Occult Blood-Urine Negative /ul (Negative); Protein-Dipstick Negative (Negative); Urine Bilirubin Dipstick Negative (Negative); Urine Clarity Clear (Clear); Urine Urobilinogen Normal (Normal)
[2020-09-20 16:50] LABS: Anion Gap 6 (5-15); BUN 10 mg/dL (7-18); BUN/Creat Ratio 9.5 RATIO (10-20); Calcium,Total 9.3 mg/dL (8.5-10.1); Chloride 93 mmol/L (98-107); Creatinine, Serum 1.05 mg/dL (0.55-1.02); EST Glomerular Filtration Rate 57 mL/min (>60); Est Glom Filt Rate - Afr Amer 69 mL/min (>60); Estimated Creatinine Clearance 42.46 ml/min; Glucose 470 mg/dL (74-106); Potassium 3.9 mmol/L (3.5-5.1); Sodium Level 128 mmol/L (136-145)
[2020-09-20 16:51] LABS: Bacteria 1+ /hpf (None Seen); Squamous Epithelial Cells - UA 0-5 SEEN /hpf (5-10); Yeast-Urine 2+ /hpf (None Seen)
--- NOTE | 2020-09-20 17:03 | ED.VISSUMM ---
- ER Visit Summary Date of Service: 09/20/20 Chief Complaint: [Right flank pain] History of Present Illness: The patient is a 55 F [presents to the emergency department complaint of right flank pain that started yesterday. Patient states this is the same pain she is had in the past when she had kidney stones. Patient is also noted some blood in the urine when she wipes. She rates her pain an 8 out of 10. She had some nausea but no vomiting. She denies urinary symptoms otherwise. Patient seen in conjunction with nurse practitioner. Patient was fully evaluated by myself. Patient does have history of diabetes, hypertension, hypothyroidism, and kidney stones.] Physical Examination: [HEENT-PERRLA, EOMI. Cranial nerves II through XII grossly intact. TMs clear. Mucous membranes moist. No adenopathy. Cardiovascular-regular rate and rhythm without murmur or ectopy Lungs-clear to auscultation, chest wall stable without crepitus or subcu emphysema Abdomen-normoactive bowel sounds, soft. Patient does have some tenderness palpation over right lower quadrant. She has CVA tenderness on the right. Extremities-intact ?4, normal range of motion, normal pulses, atraumatic] Test Results: [CBC with differential and chemistries unremarkable. Patient did have an elevated glucose over 400. Urinalysis was negative for infection. CT flank showed no evidence of kidney stones.] Emergency Department Course and Treatment: On arrival patient given IV fluids and was medicated with morphine and Zofran. [] Treatment Plan: [Patient has a care plan therefore she understands we will not write her a prescription for any narcotics. She is to follow-up with her primary care physician within next 3 to 5 days.] Disposition: [Discharged home in stable condition] Impression: [Right-sided flank pain] This note was generated with [employer] software. It may contain incorrect words, spelling, and punctuation that were not noted in review of the chart prior to signing ED Disposition - Plan for ED Patient: Disposition: Home or Assisted Living Diagnosis: Flank pain, Hyperglycemia, Hyperglycemia due to type 2 diabetes mellitus Instructions: ED Diabetic Hyperglycemia Referrals: Jeferson Valencia III, MD [Primary Care Provider] -
[2020-09-20] MEDS: Insulin Lispro 100 UNIT/ML INSULN.PEN 14 UNIT SC (17:12)
[2020-09-20] MEDS: 0.9% Normal Saline 1,000 ML 999 ML IV (17:12)
== END 2020-09-20 17:47 | disposition home or self-care (01) ==
PROVIDERS: Emergency Provider Physician Assistant; PCP Family Medicine
DX: E11.65 Type 2 diabetes mellitus with hyperglycemia (principal); E03.9 Hypothyroidism, unspecified; I10 Essential (primary) hypertension; K76.0 Fatty (change of) liver, not elsewhere classified; M54.9 Dorsalgia, unspecified; G89.29 Other chronic pain; Z82.3 Family history of stroke; Z82.49 Family history of ischemic heart disease and other diseases of the circulatory system; Z87.442 Personal history of urinary calculi; Z88.0 Allergy status to penicillin; Z88.1 Allergy status to other antibiotic agents; Z88.6 Allergy status to analgesic agent; Z90.49 Acquired absence of other specified parts of digestive tract; Z90.710 Acquired absence of both cervix and uterus; F17.200 Nicotine dependence, unspecified, uncomplicated; Z79.4 Long term (current) use of insulin
CPT/HCPCS: 74176; 80048; 81001; 85025; 96361; 96374; 96375; 99283; J7030; A4216; J2405

== ENCOUNTER 2020-12-12 14:49 | Emergency (ER) | payer MEDICARE, MEDICAID, SELFPAY ==
[2020-12-12 14:50] VITALS: BP 177/83; PULSE 133; RESP 22; TEMP 36.4; O2SAT 100; BMI 30.1
--- NOTE | 2020-12-12 15:05 | EKG12_ITS ---
Test Reason : Blood Pressure : / mmHG Vent. Rate : 109 BPM Atrial Rate : 109 BPM P-R Int : 134 ms QRS Dur : 080 ms QT Int : 358 ms P-R-T Axes : 042 -20 019 degrees QTc Int : 482 ms Sinus tachycardia Inferior infarct , age undetermined Anterior infarct , age undetermined Abnormal ECG Confirmed by OSCAR SANTANA, MIRACLE ([id number]), staff editor MILE MCMAHAN ([id number]) on 12/16/2020 10:48:27 AM Referred By: PITA Confirmed By:MIRACLE MOORE MD
--- NOTE | 2020-12-12 15:08 | ED.VIS.GEN ---
History of Present Illness Chief Complaint: Hyperglycemia Informant: Patient Narrative: 55-year-old female tells me that for the past 3 days her blood sugars have been greater than 600. She states that she has been taking extra insulin but cannot get it down. She notes polyuria and polydipsia. Patient denies any fevers. Patient states she recently had a head cold about 2 weeks ago that has since recovered. She notes some chest heaviness currently. No cough, vomiting, diarrhea, dysuria, rashes. - Past Medical History (1) Intervertebral disc disorder with radiculopathy of lumbar region Status: Chronic (2) Depressive disorder Status: Chronic (3) HTN (hypertension) Status: Chronic (4) Hyperparathyroid bone disease Status: Chronic (5) Personal history of urinary calculi Status: Chronic (6) Pure hypercholesterolemia Status: Chronic (7) Type II diabetes mellitus, uncontrolled Status: Chronic Past Medical History - Allergies and Home Meds Allergies/Adverse Reactions: Allergies celecoxib [From Celebrex] Allergy (Verified 12/12/20 14:49) Itching ciprofloxacin [From Cipro] Allergy (Verified 12/12/20 14:49) Swelling ciprofloxacin HCl [From Cipro] Allergy (Verified 12/12/20 14:49) Swelling codeine Allergy (Verified 12/12/20 14:49) Hives ibuprofen Allergy (Verified 12/12/20 14:49) Hives naproxen Allergy (Verified 12/12/20 14:49) Hives Penicillins Allergy (Verified 12/12/20 14:49) Hives tramadol HCl [From Ultram] Allergy (Verified 12/12/20 14:49) Hives ketorolac [From Toradol] Adverse Reaction (Verified 12/12/20 14:49) Swelling Primary Care Physician: Jeferson Valencia III, MD [Primary Care Provider] - Surgical History: cholecystectomy, hysterectomy, - - , parathyroid gland removal, cholecytectomy, L ganglion cyst wrist. Smoking Status: Current every day smoker Drugs: None - Family History Maternal Family History: Family History (Last Reviewed 04/08/19 @ 09:[address] Lio Pichardo MD) Other CVA (cerebral vascular accident) Cancer Diabetes Myocardial infarction Family History: Reports: Diabetes, Heart Disease - Mother w/ [place] 55 years old. Paternal Family History: Family History (Last Reviewed 04/08/19 @ 09:[address] Lio Pichardo MD) Other CVA (cerebral vascular accident) Cancer Diabetes Myocardial infarction Family History: Reports: Heart Disease - Father w/ [place]/CAD w/ PCI x 1 at 64 y/o. Review of Systems General: Denies: Chills, Fever, Sweats Eyes: Denies: Visual changes - bilaterally, Diplopia ENT: Denies: Rhinorrhea, Sore throat Cardiovascular: Reports: Chest pain - chest heaviness. Denies: Palpitations Respiratory: Denies: Dyspnea, Cough, Dyspnea on exertion Gastrointestinal: Denies: Abdominal pain, Nausea, Vomiting, Diarrhea, Melena, Hematochezia Genitourinary: Reports: Frequency. Denies: Dysuria, Hematuria Musculoskeletal: Denies: Back pain, Extremity Pain Skin: Denies: Rash, Wounds Neurological: Denies: Headache, Weakness, Numbness Endocrine: Reports: Polyuria, Polydipsia Physical Exam Vital Signs/Narrative: Vital Signs Temp Pulse Resp BP Pulse Ox 12/12/20 14:50 97.6 F L 133 H 22 H 177/83 H 100 Inital Vital Signs reviewed: Yes General: Well nourished, Well developed, Obese, No Acute Distress Head: Normocephalic, Atraumatic Eyes: Perrl, EOMI ENT: Moist mucous membranes, No rhinorrhea Neck: Supple, Nontender Cardiovascular: Regular rate, No murmurs, Tachycardia Respiratory: No distress, CTA bilaterally, Chest nontender Abdomen: Soft, Nontender, Nondistended, Normal bowel sounds Back: Nontender, Normal Inspection Extremities: Nontender, Edema - Mild bilateral edema of the lower extremities nonpitting Skin: Normal color, No rash Neurological: Alert, Oriented x3, Cranial nerves II-XII grossly intact, Normal Strength, Normal Sensation Psychological: Normal affect, Normal Mood Diagnostic/Tx/Re-eval Clinical Impression(s) from Imaging Studies Chest X-Ray 12/12/20 15:23 IMPRESSION: No acute abnormality is seen. Electronically Signed: Khoi Al MD at 15:43 EST , Service support , Laboratory Last Values WBC 8.7 K/mm3 (4.4-11.0) 12/12/20 15:20 RBC 4.50 M/mm3 (4.2-5.4) 12/12/20 15:20 Hgb 13.2 g/dL (12.0-15.0) 12/12/20 15:20 Hct 38.5 % (37-47) 12/12/20 15:20 MCV 85.6 fL (81-99) 12/12/20 15:20 MCH 29.3 pg (27.0-32.0) 12/12/20 15:20 MCHC 34.3 g/dL (32-36) 12/12/20 15:20 RDW Std Deviation 37.7 fl (35.1-43.9) 12/12/20 15:20 RDW Coeff of Anisa 12.1 % (11.6-14.6) 12/12/20 15:20 Plt Count 338 K/mm3 (150-450) 12/12/20 15:20 MPV 9.5 fl (6.2-12.0) 12/12/20 15:20 Immature Gran % (Auto) 0.500 % (0.0-0.9) 12/12/20 15:20 Neut % (Auto) 64.7 % (47-70) 12/12/20 15:20 Lymph % (Auto) 29.8 % (19-41) 12/12/20 15:20 [place] % (Auto) 4.0 % (0-10) 12/12/20 15:20 Eos % (Auto) 0.5 % (0-5) 12/12/20 15:20 Baso % (Auto) 0.5 % (0-1) 12/12/20 15:20 Absolute Neuts (auto) 5.6 X10^3/uL (2.0-7.7) 12/12/20 15:20 Absolute Lymphs (auto) 2.58 X10^3/uL (0.83-4.51) 12/12/20 15:20 Nucleated RBC % 0 % (0-5) 12/12/20 15:20 PT 12.8 SECONDS (11.7-14.9) 12/12/20 15:20 INR 1.0 12/12/20 15:20 APTT 21.0 Seconds (24.1-36.2) L 12/12/20 15:20 Sodium 129 mmol/L (136-145) L 12/12/20 15:20 Potassium 3.5 mmol/L (3.5-5.1) 12/12/20 15:20 Chloride 96 mmol/L (98-107) L 12/12/20 15:20 Carbon Dioxide 23.0 mmol/L (21.0-32.0) 12/12/20 15:20 Anion Gap 10 (5-15) 12/12/20 15:20 BUN 9 mg/dL (7-18) 12/12/20 15:20 Creatinine 0.93 mg/dL (0.55-1.02) 12/12/20 15:20 Estim Creat Clear Calc 47.94 ml/min 12/12/20 15:20 Est GFR (MDRD) Af Amer 80 mL/min (>60) 12/12/20 15:20 Est GFR (MDRD) Non-Af 66 mL/min (>60) 12/12/20 15:20 BUN/Creatinine Ratio 9.7 RATIO (10-20) L 12/12/20 15:20 Glucose 298 mg/dL (74-106) H 12/12/20 15:20 Lactic Acid 3.0 mmol/L (0.4-1.9) H* 12/12/20 15:20 Calcium 8.5 mg/dL (8.5-10.1) 12/12/20 15:20 Phosphorus 2.9 mg/dL (2.5-4.9) 12/12/20 15:20 Magnesium 2.0 mg/dL (1.6-2.6) 12/12/20 15:20 Total Bilirubin 0.30 mg/dL (0.20-1.00) 12/12/20 15:20 AST 45 U/L (15-37) H 12/12/20 15:20 ALT 49 U/L (13-56) 12/12/20 15:20 Alkaline Phosphatase 105 U/L (45-117) 12/12/20 15:20 Total Protein 7.2 g/dL (6.4-8.2) 12/12/20 15:20 Albumin 3.2 g/dL (3.2-5.0) 12/12/20 15:20 Globulin 4.0 g/dL (2.2-4.2) 12/12/20 15:20 Albumin/Globulin Ratio 0.8 RATIO (0.9-2.4) L 12/12/20 15:20 Lipase 105 U/L (73-393) 12/12/20 15:20 Urine Color Straw (Yellow) 12/12/20 16:35 Urine Clarity Clear (Clear) 12/12/20 16:35 Urine pH 6.5 (5.0 - 8.0) 12/12/20 16:35 Ur Specific [place] 1.005 (1.002-1.030) 12/12/20 16:35 Urine Protein Negative mg/dl (Negative) 12/12/20 16:35 Urine Glucose (UA) 1000 mg/dl (Normal) H 12/12/20 16:35 Urine Ketones Negative mg/dl (Negative) 12/12/20 16:35 Urine Occult Blood Negative /ul (Negative) 12/12/20 16:35 Urine Nitrite Negative (Negative) 12/12/20 16:35 Urine Bilirubin Negative mg/dL (Negative) 12/12/20 16:35 Urine Urobilinogen Normal mg/dl (Normal) 12/12/20 16:35 Ur Leukocyte Esterase 25 /ul (Negative) H 12/12/20 16:35 Urine RBC 0 SEEN /hpf (0-5) 12/12/20 16:35 Urine WBC 0-5 SEEN /hpf (0-5) 12/12/20 16:35 Ur Squamous Epith Cells 0-5 SEEN /hpf (5-10) 12/12/20 16:35 Urine Bacteria 0 SEEN /hpf (None Seen) 12/12/20 16:35 Urine Mucus 0 SEEN /hpf (<or=2+) 12/12/20 16:35 Acetone Level NEGATIVE (NEG) 12/12/20 15:20 - EKG Initial EKG Interpretation: Sinus Tachycardia - EKG demonstrates a sinus tachycardia at a rate of 109 with no concerning features of ACS or ectopy. - Medical Decision Making Patient's blood sugar 298 on our testing. Normal white count. Lactic acid is 3 which I suspect is due to a degree of dehydration. After 2 L of IV fluids the patient's heart rate is down to 100. She is feeling significantly better. Patient will be discharged home with follow-up with her doctor next week. ED Disposition - Plan for ED Patient: Disposition: Home or Assisted Living Diagnosis: Hyperglycemia due to type 2 diabetes mellitus, Dehydration Instructions: ED Dehydration (Adult), ED Diabetic Hyperglycemia Referrals: Jeferson Valencia III, MD [Primary Care Provider] - 3-5 Days if not improving
--- NOTE | 2020-12-12 15:23 | RAD_ITS ---
STUDY: X-RAY CHEST REASON FOR EXAM: Female, 55 years old. Chest pain TECHNIQUE: Single AP portable view of the chest. COMPARISON: Comparison is made with prior study dated 11/14/2019. FINDINGS: The lungs are clear and expanded. Scattered calcified granulomas. There is no demonstrated pleural abnormality. Normal size heart. Normal mediastinum and adryan. Normal visualized pulmonary arteries. There is atherosclerotic calcification of the aortic arch with tortuosity. Normal visualized thoracic spine. Normal visualized ribs, clavicles, and shoulders. There is no demonstrated abnormality of the visualized soft tissue structures of the upper abdomen. RAD/Chest 1 View (Portable) IMPRESSION: No acute abnormality is seen. Electronically Signed: Khoi Al MD at 15:43 EST , Service support ,
[2020-12-12] MEDS: 0.9% Normal Saline 1,000 ML 999 ML IV ×2 (15:26→16:46)
[2020-12-12 15:40] LABS: Absolute Lymphocyte Count 2.58 X10^3/uL (0.83-4.51); Absolute Neutrophil Count 5.6 X10^3/uL (2.0-7.7); Basophil# 0.04 X10^3/uL; Basophil% 0.5 % (0-1); Eosinophil# 0.04 X10^3/uL; Eosinophils% 0.5 % (0-5); Hematocrit 38.5 % (37-47); Hemoglobin 13.2 g/dL (12.0-15.0); Lymphocyte # 2.58 X10^3/ul (4.0); Lymphocyte % 29.8 % (19-41); Mean Corp Hgb Conc 34.3 g/dL (32-36); Mean Corpuscular Hgb 29.3 pg (27.0-32.0); Mean Corpuscular Volume 85.6 fL (81-99); Mean Platelet Vol. 9.5 fl (6.2-12.0); Monocyte# 0.35 X10^3/uL; NRBC Flagged by Analyzer 0 % (0-5); Neutrophil # 5.61 X10^3/uL (2.7-7.7); Neutrophil % 64.7 % (47-70); Platelet Count 338 K/mm3 (150-450); RBC Distribution Width CV 12.1 % (11.6-14.6); RBC Distribution Width SD 37.7 fl (35.1-43.9); White Blood Count 8.7 K/mm3 (4.4-11.0)
[2020-12-12 15:56] LABS: ALB/GLOB Ratio 0.8 RATIO (0.9-2.4); AST(SGOT) 45 U/L (15-37); Alanine Aminotransfer ALT/SGPT 49 U/L (13-56); Albumin, Serum 3.2 g/dL (3.2-5.0); Alkaline Phosphatase 105 U/L (45-117); Anion Gap 10 (5-15); BUN 9 mg/dL (7-18); BUN/Creat Ratio 9.7 RATIO (10-20); Calcium,Total 8.5 mg/dL (8.5-10.1); Chloride 96 mmol/L (98-107); Creatinine, Serum 0.93 mg/dL (0.55-1.02); EST Glomerular Filtration Rate 66 mL/min (>60); Est Glom Filt Rate - Afr Amer 80 mL/min (>60); Estimated Creatinine Clearance 47.94 ml/min; Glucose 298 mg/dL (74-106); Lipase 105 U/L (73-393); Potassium 3.5 mmol/L (3.5-5.1); Protein, Total 7.2 g/dL (6.4-8.2); Sodium Level 129 mmol/L (136-145)
[2020-12-12 15:57] LABS: Phosphorus 2.9 mg/dL (2.5-4.9)
[2020-12-12 16:17] LABS: Prothrombin Time (Protime)PT. 12.8 SECONDS (11.7-14.9)
[2020-12-12 16:43] LABS: Bacteria 0 SEEN /hpf (None Seen); Mucous, Urine 0 SEEN /hpf (<or=2+); Red Blood Cells-Urine 0 SEEN /hpf (0-5)
[2020-12-12 16:51] LABS: Color, Urine Straw (Yellow); Glucose, Dipstick 1000 mg/dl (Normal); Ketone-Dipstick Negative (Negative); Leukocyte Esterase-Dipstick 25 /ul (Negative); Nitrite-Dipstick Negative (Negative); Occult Blood-Urine Negative /ul (Negative); Protein-Dipstick Negative (Negative); Specific Gravity, Urine 1.005 (1.002-1.030); Urine Bilirubin Dipstick Negative (Negative); Urine Clarity Clear (Clear); Urine Urobilinogen Normal (Normal); Urine pH 6.5 (5.0 - 8.0)
[2020-12-12 16:57] LABS: Squamous Epithelial Cells - UA 0-5 SEEN /hpf (5-10); White Blood Cells 0-5 SEEN /hpf (0-5)
[2020-12-12 17:11] VITALS: BP 127/60; PULSE 104; RESP 14; O2SAT 99
[2020-12-12] MEDS: Acetaminophen 500 MG Tablet 1000 MG PO (17:11)
[2020-12-12 17:40] LABS: Bedside Glucose 120 mg/dL (70-110)
[2020-12-12 19:36] LABS: Reflex Lactate? Y
== END 2020-12-12 17:39 | disposition home or self-care (01) ==
PROVIDERS: Emergency Provider Emergency Medicine; PCP Family Medicine
DX: E11.65 Type 2 diabetes mellitus with hyperglycemia (principal); E86.0 Dehydration; E78.00 Pure hypercholesterolemia, unspecified; I10 Essential (primary) hypertension; F17.200 Nicotine dependence, unspecified, uncomplicated; Z79.4 Long term (current) use of insulin; Z82.49 Family history of ischemic heart disease and other diseases of the circulatory system; Z83.3 Family history of diabetes mellitus; Z88.0 Allergy status to penicillin; Z88.1 Allergy status to other antibiotic agents; Z88.6 Allergy status to analgesic agent; Z90.49 Acquired absence of other specified parts of digestive tract; Z82.3 Family history of stroke; Z90.710 Acquired absence of both cervix and uterus; Z87.442 Personal history of urinary calculi; F32.9 Major depressive disorder, single episode, unspecified; M54.16 Radiculopathy, lumbar region; E21.3 Hyperparathyroidism, unspecified
CPT/HCPCS: 71045; 80053; 81001; 82009; 82962; 83605; 83690; 83735; 84100; 85025; 85610; 85730; 93005; 96360; 96361; 99285; J7030; A4216

== ENCOUNTER 2021-02-28 12:49 | Emergency (ER) | payer MEDICARE, MEDICAID, SELFPAY ==
[2021-02-28 12:50] VITALS: BP 126/75; PULSE 109; RESP 14; TEMP 35.5; O2SAT 100; BMI 28.3
--- NOTE | 2021-02-28 14:42 | CT_ITS ---
INDICATION: Kidney Stone EXAMINATION: CT Abdomen And Pelvis W/O Contrast Injection TECHNIQUE: Helically acquired images were obtained of the abdomen and pelvis without the use of IV contrast. A radiation dose optimization technique was used for this scan. Oral contrast: None. COMPARISON: 09/20/2020 FINDINGS: Evaluation of the solid organs and vascular structures is limited without intravenous contrast. Visualized lung bases: Nodular consolidation in the left lung base. Liver: Scattered calcified granulomas. Gallbladder: Surgically absent. Spleen: Scattered calcified granulomas. Pancreas: Unremarkable Adrenal Glands: Unremarkable Kidneys: No renal stones or hydronephrosis. Vasculature: Moderate aortoiliac atherosclerotic disease. GI Tract: There is mild wall thickening of the body and fundus of the stomach with subtle surrounding fat stranding. Lymphadenopathy: None Peritoneum: No ascites. Bladder: Unremarkable Reproductive organs: Unremarkable Bones/Soft tissues: Mild scattered degenerative changes of the visualized spine. Small fat-containing ventral hernia. CT/Abdomen/Pelvis without Cont IMPRESSION: No renal or ureteral stones. Nodular consolidation in the left lung base is concerning for infection. Mild wall thickening of the body and fundus of the stomach with subtle surrounding fat stranding. This could represent gastritis in the correct clinical setting. Electronically Signed: Chuy Ashton MD at 16:32 EDT Tel , Service support ,
--- NOTE | 2021-02-28 14:43 | EDS_ITS ---
HPI <Dr. Zack Choi DO - Last Filed: 02/28/21 16:58> History of Present Illness Chief Complaint: Flank Pain Informant: patient Narrative Narrative: Very pleasant 55-year-old female presents for evaluation of right flank pain. She states she has a history of kidney stones and this feels very similar. She describes a sharp stabbing pain in the flank wrapping to the right lower pelvis. She states that symptoms began last night. She has had nausea but no vomiting she does note a small amount of diarrhea. No fevers. She does admit to some hematuria. She sees Dr. Pichardo for urology [facility] <Dr. Zack Choi DO - Last Filed: 02/28/21 16:58> [facility] Medical History Back pain Carpal tunnel syndrome Diabetes Fatigue Kidney disease Kidney stones Migraines Stomach ulcer Thyroid disease Home Medications insulin glargine 100 unit/mL subcutaneous solution 42 unit SC QHS ml 12/10/17 [History Last Taken Unknown] rizatriptan 10 mg PO PRN PRN 12/27/17 [History Last Taken Unknown] levothyroxine 175 mcg PO DAILY 04/05/18 [History Last Taken 07/21/19 10:00] omeprazole 40 mg PO DAILY 03/01/19 [History Last Taken 07/21/19 10:00] insulin lispro 14 unit SQ TID 07/20/19 [History Last Taken 07/21/19 10:00] hydrocodone-acetaminophen 1 tab PO Q6H PRN PRN 3 Days #12 tablet 02/28/21 [Rx Last Taken Unknown] sulfamethoxazole-trimethoprim [Bactrim DS] 1 tab PO DAILY 14 Days #14 tab 02/28/21 [Rx Last Taken Unknown] Allergy/AdvReac Type Severity Reaction Status Date / Time celecoxib [From Celebrex] Allergy Itching Verified 02/28/21 12:50 ciprofloxacin [From Cipro] Allergy Swelling Verified 02/28/21 12:50 ciprofloxacin HCl Allergy Swelling Verified 02/28/21 12:50 [From Cipro] codeine Allergy Hives Verified 02/28/21 12:50 ibuprofen Allergy Hives Verified 02/28/21 12:50 naproxen Allergy Hives Verified 02/28/21 12:50 Penicillins Allergy Hives Verified 02/28/21 12:50 tramadol HCl [From Ultram] Allergy Hives Verified 02/28/21 12:50 ketorolac [From Toradol] AdvReac Swelling Verified 02/28/21 12:50 Family History Other CVA (cerebral vascular accident) Cancer Diabetes Myocardial infarction Surgical History H/O: hysterectomy Hx of section S/P trigger finger release Social History Smoking Status: Former smoker alcohol intake: never ROS <Dr. Zack Choi DO - Last Filed: 02/28/21 16:58> ROS ED Constitutional Constitutional ED: Denies chills or weight loss Eyes Eyes: Denies change in vision or diplopia ENT ENT ED: Denies ear pain, rhinorrhea or sore throat Cardiovascular Cardiovascular: Denies chest pain, orthopnea, palpitations or racing heartbeat Respiratory/Chest Respiratory/Chest: Denies cough, dyspnea or orthopnea Gastrointestinal Gastrointestinal: Reports abdominal pain and nausea; Denies diarrhea or vomiting Genitourinary Genitourinary ED: Reports hematuria and urinary frequency; Denies dysuria Musculoskeletal Musculoskeletal: Denies arthralgias or myalgias Integumentary Denies abscess or rash Neurologic Neurologic: Denies headache(s) or weakness Psychiatric Psychiatric: Denies anxiety, depression, suicidal ideation or suicidal thoughts Endocrine Endocrinology: Denies polydipsia, polyphagia or polyuria Allergic/Immunologic Allergic/Immunologic ED: Denies mouth swelling, tongue swelling or urticaria EXAM <Dr. Zack Choi DO - Last Filed: 02/28/21 16:58> Physical Exam Const Vital Signs: 02/28/21 12:50 02/28/21 15:00 Temperature 96 F L Temperature Source Temporal Pulse Rate 109 H Respiratory Rate 14 Respiratory Effort Normal Respiratory Pattern Normal Blood Pressure 126/75 H Blood Pressure Mean 92 Pulse Ox 100 Oxygen Delivery Method Room Air Positive well nourished and well developed General Appearance ED: well developed HEENT Reports normocephalic, head/scalp atraumatic and moist mucous membranes Eyes PERRL and EOMs intact bilaterally Neck no lymphadenopathy, supple and no JVD Resp normal respiratory effort and clear to auscultation bilaterally Cardio regular rate, regular rhythm and no murmurs GI normal to inspection, nondistended, normoactive bowel sounds and non-tender Palpation: soft Back/Spine no CVA tenderness and normal ROM Extremity normal to inspection General Extremety ED: Negative for edema General Extremity: Negative for edema Neuro oriented x3 and CN's II-XII intact bilaterally Sensorium / Orientation: alert Motor Exam: strength 5/5 throughout Psych mental status grossly normal Mood & Affect: Negative for depressed or tearful Skin no rashes or lesions noted and no wounds <Dr. Kelechi Geller, DO - Last Filed: 02/28/21 17:49> Physical Exam Const Vital Signs: 02/28/21 12:50 02/28/21 15:00 Temperature 96 F L Temperature Source Temporal Pulse Rate 109 H Respiratory Rate 14 Respiratory Effort Normal Respiratory Pattern Normal Blood Pressure 126/75 H Blood Pressure Mean 92 Pulse Ox 100 Oxygen Delivery Method Room Air MDM <Dr. Zack Choi, DO - Last Filed: 02/28/21 16:58> [facility] Narrative Medical decision making narrative: Patient received pain and nausea medication. She also received IV fluids. White count is normal. Creatinine 0.82. CT noncontrast is demonstrated no ureteral stone to explain her symptoms. She does note a history of GERD we see some wall thickening of the body and fundus of the stomach. Urinalysis currently pending. If this is negative I think the patient can be discharged home. If it demonstrates infection we will treat it. Lab Data Attestation: I reviewed the patient's lab results. Labs: Laboratory Results - last 24 hr 02/28/21 02/28/21 02/28/21 15:00 15:00 16:54 WBC 7.7 RBC 4.33 Hgb 12.6 Hct 36.8 L MCV 85.0 MCH 29.1 MCHC 34.2 RDW Std Deviation 37.9 RDW Coeff of Anisa 12.2 Plt Count 254 MPV 9.4 Immature Gran % (Auto) 0.100 Neut % (Auto) 71.5 H Lymph % (Auto) 22.5 [place] % (Auto) 5.1 Eos % (Auto) 0.4 Baso % (Auto) 0.4 Absolute Neuts (auto) 5.5 Absolute Lymphs (auto) 1.74 Nucleated RBC % 0 Sodium 133 L Potassium 3.6 Chloride 96 L Carbon Dioxide 31.0 Anion Gap 6 BUN 11 Creatinine 0.82 Estim Creat Clear Calc 54.37 Est GFR (MDRD) Af Amer 92 Est GFR (MDRD) Non-Af 76 BUN/Creatinine Ratio 13.3 Glucose 358 H Calcium 8.9 Urine Color Yellow Urine Clarity Sl. Cloudy Urine pH 7.0 Ur Specific [place] 1.010 Urine Protein Negative Urine Glucose (UA) 1000 H Urine Ketones 15 H Urine Occult Blood 250 H Urine Nitrite Negative Urine Bilirubin Negative Urine Urobilinogen Normal Ur Leukocyte Esterase 500 H Urine RBC 25-50 SEEN Urine WBC 5-10 SEEN Ur Squamous Epith Cells 0-5 SEEN Urine Bacteria 0 SEEN Urine Mucus 0 SEEN Radiography Diagnostic Testing: Radiology Impression Abdomen/Pelvis CT 02/28/21 14:42 IMPRESSION: No renal or ureteral stones. Nodular consolidation in the left lung base is concerning for infection. Mild wall thickening of the body and fundus of the stomach with subtle surrounding fat stranding. This could represent gastritis in the correct clinical setting. Electronically Signed: Chuy Ashton MD at 16:32 EDT Tel , Service support , <Dr. Kelechi Geller, DO - Last Filed: 02/28/21 17:49> [facility] Narrative Medical decision making narrative: Patient was signed out to me to follow-up on urinalysis. Patient had been seen for flank pain and did have some hematuria in her urine. She has a negative CT study and her lab work is relatively normal with exception of her glucose at 358. There is no anion gap. Patient's urinalysis does show 500 leukocyte esterase as well as 25-50 RBCs and 5-10 white blood cells. Given the patient's flank pain and negative CT study for kidney stone I will start her on Bactrim with first dose in the ED. Urine culture was sent. Patient was counseled on findings and was amenable to discharge at this time. He is given return precautions. Patient stable discharge. Lab Data Attestation: I reviewed the patient's lab results. Labs: Laboratory Results - last 24 hr 02/28/21 02/28/21 02/28/21 15:00 15:00 16:54 WBC 7.7 RBC 4.33 Hgb 12.6 Hct 36.8 L MCV 85.0 MCH 29.1 MCHC 34.2 RDW Std Deviation 37.9 RDW Coeff of Anisa 12.2 Plt Count 254 MPV 9.4 Immature Gran % (Auto) 0.100 Neut % (Auto) 71.5 H Lymph % (Auto) 22.5 [place] % (Auto) 5.1 Eos % (Auto) 0.4 Baso % (Auto) 0.4 Absolute Neuts (auto) 5.5 Absolute Lymphs (auto) 1.74 Nucleated RBC % 0 Sodium 133 L Potassium 3.6 Chloride 96 L Carbon Dioxide 31.0 Anion Gap 6 BUN 11 Creatinine 0.82 Estim Creat Clear Calc 54.37 Est GFR (MDRD) Af Amer 92 Est GFR (MDRD) Non-Af 76 BUN/Creatinine Ratio 13.3 Glucose 358 H Calcium 8.9 Urine Color Yellow Urine Clarity Sl. Cloudy Urine pH 7.0 Ur Specific [place] 1.010 Urine Protein Negative Urine Glucose (UA) 1000 H Urine Ketones 15 H Urine Occult Blood 250 H Urine Nitrite Negative Urine Bilirubin Negative Urine Urobilinogen Normal Ur Leukocyte Esterase 500 H Urine RBC 25-50 SEEN Urine WBC 5-10 SEEN Ur Squamous Epith Cells 0-5 SEEN Urine Bacteria 0 SEEN Urine Mucus 0 SEEN Radiography Diagnostic Testing: Radiology Impression Abdomen/Pelvis CT 02/28/21 14:42 IMPRESSION: No renal or ureteral stones. Nodular consolidation in the left lung base is concerning for infection. Mild wall thickening of the body and fundus of the stomach with subtle surrounding fat stranding. This could represent gastritis in the correct clinical setting. Electronically Signed: Chuy Ashton MD at 16:32 EDT Tel , Service support , Discharge Plan Triage Chief Complaint: Flank Pain ED Provider: Kelechi Geller Dx/Rx/DC Orders Clinical Impression: Acute right flank pain Instructions: ED Pyelonephritis, Female (Adult) Prescriptions: New hydrocodone-acetaminophen [hydrocodone-acetaminophen] 1 TABLET tablet 1 tab PO Q6H PRN PRN (Reason: Pain) 3 Days Qty: 12 RF: 0 sulfamethoxazole-trimethoprim [Bactrim DS] 800-160 mg tablet 1 tab PO DAILY 14 Days Qty: 14 RF: 0 No Action insulin glargine 100 UNIT/ML solution 42 unit SC QHS RF: 0 rizatriptan 10 tablet 10 mg PO PRN PRN (Reason: Migraine Symptoms) RF: 0 levothyroxine 125 MCG tablet 175 mcg PO DAILY RF: 0 omeprazole 40 MG capsule,delayed release(DR/EC) 40 mg PO DAILY RF: 0 insulin lispro 100 UNIT/ML insulin pen 14 unit SQ TID RF: 0 Primary Care Provider: Jeferson Valencia III Referrals: Jeferson Valencia III, MD [Primary Care Provider] - 3-5 Days if not improving Lio Pichardo MD [STAFF PHYSICIAN] - 3-5 Days if not improving Disposition Disposition: Home, self care
[2021-02-28] MEDS: 0.9% Normal Saline 1,000 ML 250 ML IV (15:06)
[2021-02-28] MEDS: Morphine 4 MG/ML Syringe IV (15:07)
[2021-02-28] MEDS: Ondansetron 4 MG/2 ML Vial IV (15:07)
[2021-02-28 15:18] LABS: Absolute Lymphocyte Count 1.74 X10^3/uL (0.83-4.51); Absolute Neutrophil Count 5.5 X10^3/uL (2.0-7.7); Basophil# 0.03 X10^3/uL; Basophil% 0.4 % (0-1); Eosinophil# 0.03 X10^3/uL; Eosinophils% 0.4 % (0-5); Hematocrit 36.8 % (37-47); Hemoglobin 12.6 g/dL (12.0-15.0); Lymphocyte # 1.74 X10^3/ul (0.83-4.51); Lymphocyte % 22.5 % (19-41); Mean Corp Hgb Conc 34.2 g/dL (32-36); Mean Corpuscular Hgb 29.1 pg (27.0-32.0); Mean Platelet Vol. 9.4 fl (6.2-12.0); Monocyte# 0.39 X10^3/uL; Monocyte% 5.1 % (0-10); NRBC Flagged by Analyzer 0 % (0-5); Neutrophil # 5.52 X10^3/uL (2.7-7.7); Neutrophil % 71.5 % (47-70); Platelet Count 254 K/mm3 (150-450); RBC Distribution Width CV 12.2 % (11.6-14.6); RBC Distribution Width SD 37.9 fl (35.1-43.9); Red Blood Count 4.33 M/mm3 (4.2-5.4); White Blood Count 7.7 K/mm3 (4.4-11.0)
[2021-02-28 15:31] LABS: Anion Gap 6 (5-15); BUN 11 mg/dL (7-18); BUN/Creat Ratio 13.3 RATIO (10-20); Calcium,Total 8.9 mg/dL (8.5-10.1); Chloride 96 mmol/L (98-107); Creatinine, Serum 0.82 mg/dL (0.55-1.02); EST Glomerular Filtration Rate 76 mL/min (>60); Est Glom Filt Rate - Afr Amer 92 mL/min (>60); Estimated Creatinine Clearance 54.37 ml/min; Glucose 358 mg/dL (74-106); Potassium 3.6 mmol/L (3.5-5.1); Sodium Level 133 mmol/L (136-145)
[2021-02-28 17:00] LABS: Bacteria 0 SEEN /hpf (None Seen); Mucous, Urine 0 SEEN /hpf (<or=2+)
[2021-02-28 17:01] LABS: Color, Urine Yellow (Yellow); Glucose, Dipstick 1000 mg/dl (Normal); Ketone-Dipstick 15 mg/dl (Negative); Leukocyte Esterase-Dipstick 500 /ul (Negative); Nitrite-Dipstick Negative (Negative); Occult Blood-Urine 250 /ul (Negative); Protein-Dipstick Negative (Negative); Urine Bilirubin Dipstick Negative (Negative); Urine Clarity Sl. Cloudy (Clear); Urine Urobilinogen Normal (Normal)
[2021-02-28 17:07] LABS: Red Blood Cells-Urine 25-50 SEEN /hpf (0-5); White Blood Cells 5-10 SEEN /hpf (0-5)
[2021-02-28 17:08] LABS: Squamous Epithelial Cells - UA 0-5 SEEN /hpf (5-10)
[2021-02-28] MEDS: HYDROcodone Bitartrate/Apap 5/325 Tablet PO (17:43)
[2021-02-28] MEDS: Smz/Tmp Ds Tablet 1 TABLET PO (17:44)
[2021-02-28 17:51] VITALS: BP 138/90; PULSE 88; RESP 6; O2SAT 100
== END 2021-02-28 17:51 | disposition home or self-care (01) ==
PROVIDERS: Emergency Medicine; Emergency Provider Student in an Organized Health Care Education/Training Program; PCP Family Medicine
DX: R10.9 Unspecified abdominal pain (principal); Z87.891 Personal history of nicotine dependence
CPT/HCPCS: 74176; 80048; 81001; 85025; 87086; 87088; 96374; 96375; 99283; A4216; J2405

== ENCOUNTER 2021-05-13 10:32 | Emergency (ER) | payer MEDICARE, MEDICAID, SELFPAY ==
[2021-05-13 10:33] VITALS: BP 142/84; PULSE 98; RESP 16; TEMP 36.5; O2SAT 99; BMI 29.7
--- NOTE | 2021-05-13 10:43 | RAD_ITS ---
STUDY: X-RAY - RIGHT KNEE REASON FOR EXAM: Female, 55 years old. 6 day history of medial knee pain. TECHNIQUE: 4 view(s) of the knee. COMPARISON: None. FINDINGS: Normal visualized distal femur. Normal visualized proximal tibia and fibula. Normal proximal tibiofibular articulation. Normal medial femorotibial compartment. Normal lateral femorotibial compartment. Normal patellofemoral articulation. The soft tissue structures are unremarkable. RAD/Knee 4 or More Views IMPRESSION: Normal x-ray examination of the knee. Electronically Signed: Khoi Al MD at 11:14 EDT , Service support ,
--- NOTE | 2021-05-13 10:43 | ED.VIS.LOWEX ---
HPI History of Present Illness Chief Complaint: Lower Extremity Injury Detail of Chief Complaint: Injury to right knee after a fall Informant: patient Narrative Narrative: Patient presents to the emergency department complaint of pain to the right knee after falling on it 6 days ago. Patient states that she slipped and fell in the mud directly onto the knee. She is not sure if it twisted. Patient having pain with walking but is able to bear weight. She denies any other injuries. PFSH [facility] Medical History Back pain Carpal tunnel syndrome Diabetes Fatigue Kidney disease Kidney stones Migraines Stomach ulcer Thyroid disease Home Medications insulin glargine 100 unit/mL subcutaneous solution 42 unit SC QHS ml 12/10/17 [History Last Taken Unknown] rizatriptan 10 mg PO PRN PRN 12/27/17 [History Last Taken Unknown] levothyroxine 175 mcg PO DAILY 04/05/18 [History Last Taken 07/21/19 10:00] omeprazole 40 mg PO DAILY 03/01/19 [History Last Taken 07/21/19 10:00] insulin lispro 14 unit SQ TID 07/20/19 [History Last Taken 07/21/19 10:00] Allergy/AdvReac Type Severity Reaction Status Date / Time celecoxib [From Celebrex] Allergy Itching Verified 05/13/21 10:32 ciprofloxacin [From Cipro] Allergy Swelling Verified 05/13/21 10:32 ciprofloxacin HCl Allergy Swelling Verified 05/13/21 10:32 [From Cipro] codeine Allergy Hives Verified 05/13/21 10:32 ibuprofen Allergy Hives Verified 05/13/21 10:32 naproxen Allergy Hives Verified 05/13/21 10:32 Penicillins Allergy Hives Verified 05/13/21 10:32 tramadol HCl [From Ultram] Allergy Hives Verified 05/13/21 10:32 ketorolac [From Toradol] AdvReac Swelling Verified 05/13/21 10:32 Family History Other CVA (cerebral vascular accident) Cancer Diabetes Myocardial infarction Surgical History H/O: hysterectomy Hx of section S/P trigger finger release Social History Smoking Status: Former smoker alcohol intake: never ROS ROS ED Constitutional Constitutional ED: Reports systems reviewed and no addt'l complaints, except as documented; Denies body ache(s), change in weight or chills Eyes Eyes: Denies acute decrease in peripheral vision, change in vision, double vision or loss of vision ENT ENT ED: Reports none; Denies ear pain, lip swelling, loss taste/smell, neck pain, otalgia or sore throat Cardiovascular Cardiovascular: Reports none; Denies abdominal pain, chest pain with activity, leg edema, lightheadedness, palpitations, rapid heart rate or syncope Respiratory/Chest Respiratory/Chest: Reports none; Denies change in mental status, dry cough, dyspnea, hemoptysis, shortness of breath at rest or shortness of breath with exertion Gastrointestinal Gastrointestinal: Reports none; Denies abdominal pain, change in stool character, diarrhea, hematemesis, hematochezia, melena, rectal bleeding or vomiting Genitourinary Genitourinary ED: Reports none; Denies abdominal discomfort, anuria, dysuria, genital pain or polyuria Musculoskeletal Musculoskeletal: Reports none and other Details: Right knee pain ; Denies arthralgias, back pain, difficulty walking, extremity pain, muscle weakness or myalgias Integumentary Reports none; Denies abscess or rash Neurologic Neurologic: Reports none; Denies abnormal gait, confusion, focal weakness, frequent falls, headache(s), loss of vision, numbness, paresthesias, radicular pain, vertigo or weakness Psychiatric Psychiatric: Reports systems reviewed and no addt'l complaints, except as documented and none; Denies behavioral changes, confusion, difficulty concentrating, hallucinations, suicidal ideation, tactile hallucinations or visual hallucinations Endocrine Endocrinology: Denies none, cold intolerance, excessive sweating, fatigue or heat intolerance Hematologic/Lymphatic Hematologic/Lymphatic: Reports none; Denies anemia, easy bleeding or easy bruising Allergic/Immunologic Allergic/Immunologic ED: Denies as per HPI, none, lip swelling, mouth swelling, throat swelling, tongue swelling or hives EXAM Physical Exam Const Vital Signs: 05/13/21 10:33 Temperature 97.7 F L Temperature Source Oral Pulse Rate 98 Respiratory Rate 16 Blood Pressure 142/84 H Blood Pressure Mean 103 Pulse Ox 99 Oxygen Delivery Method Room Air Positive well nourished and well developed General Appearance ED: well developed and NAD HEENT Reports TM's clear and moist mucous membranes normocephalic and atraumatic; Negative for trauma or tenderness Tympanic Membrane ED: Yes TM's clear Eyes PERRL and EOMs intact bilaterally General Eye ED: Negative for pale conjunctiva or scleral icterus Neck no lymphadenopathy, supple and no JVD General: Negative for tenderness Chest Wall inspection of chest normal and palpation of chest normal Chest: Negative for tenderness Resp normal respiratory effort and clear to auscultation bilaterally Effort and Inspection: Negative for respiratory distress or pain with movement Auscultation: Negative for rhonchi, wheezes or diminished lung sounds Cardio regular rate, regular rhythm, S1 normal heart sound, S2 normal heart sound and no murmurs Peripheral Pulses: pulses 2+ throughout GI normal to inspection, nondistended, normoactive bowel sounds, soft to palpation, non-tender, non-distended and no masses Back/Spine no CVA tenderness and no thoracic nor lumbar tenderness Extremity normal to inspection Extremity Narrative: Patient has no effusion noted. There is no ecchymosis or bruising noted. Patient does have some tenderness palpation over the medial joint line as well as tenderness anteriorly over the prepatellar tendon. Ligamentously stable. Normal anterior and posterior drawer test. Neurovascular intact distally. Neuro oriented x3, CN's II-XII intact bilaterally, no sensory deficits noted and gait normal Sensorium / Orientation: awake, alert, oriented to person, oriented to place and oriented to time Motor Exam: strength 5/5 throughout and strength abnormal Psych mental status grossly normal Skin no rashes or lesions noted and no wounds MDM MDM MDM Narrative Medical decision making narrative: X-rays unremarkable of right knee. Patient is unsure if she may have twisted the knee when she fell but she think she do just directly fell onto it. She will be placed in a knee immobilizer. Patient advised to follow-up with primary care physician in 5 to 7 days. Radiography Diagnostic Testing: Radiology Impression Knee X-Ray 05/13/21 10:43 IMPRESSION: Normal x-ray examination of the knee. Electronically Signed: Khoi Al MD at 11:14 EDT , Service support , 4 view x-rays of right knee obtained interpreted by myself is normal. Radiology in agreement. Discharge Plan Triage Chief Complaint: Lower Extremity Injury ED Provider: Olena Govea Dx/Rx/DC Orders Clinical Impression: Right knee sprain, Contusion of knee Instructions: ED Contusion, Lower Extremity, ED Sprain Knee Collateral Ligaments Prescriptions: No Action insulin glargine 100 UNIT/ML solution 42 unit SC QHS RF: 0 rizatriptan 10 tablet 10 mg PO PRN PRN (Reason: Migraine Symptoms) RF: 0 levothyroxine 125 MCG tablet 175 mcg PO DAILY RF: 0 omeprazole 40 MG capsule,delayed release(DR/EC) 40 mg PO DAILY RF: 0 insulin lispro 100 UNIT/ML insulin pen 14 unit SQ TID RF: 0 Primary Care Provider: Jeferson Valencia III Referrals: Jeferson Valencia III, MD [Primary Care Provider] - 5-7 Days Disposition Disposition: Home, Self Care
== END 2021-05-13 11:31 | disposition home or self-care (01) ==
LOC: ED 11:23
PROVIDERS: Emergency Provider Emergency Medicine
DX: S80.01XA Contusion of right knee, initial encounter (principal); S83.91XA Sprain of unspecified site of right knee, initial encounter; W01.0XXA Fall on same level from slipping, tripping and stumbling without subsequent striking against object, initial encounter; E11.9 Type 2 diabetes mellitus without complications; Z79.1 Long term (current) use of non-steroidal anti-inflammatories (NSAID); Z79.4 Long term (current) use of insulin; Z87.891 Personal history of nicotine dependence
CPT/HCPCS: 73564; 99282

== ENCOUNTER 2021-06-03 12:46 | Emergency (ER) | payer MEDICARE, MEDICAID, SELFPAY ==
[2021-06-03 12:47] VITALS: BP 175/94; PULSE 102; RESP 16; TEMP 36.4; O2SAT 100; BMI 29.9
--- NOTE | 2021-06-03 13:17 | EDS_ITS ---
HPI History of Present Illness Chief Complaint: Back Narrative Narrative: Patient presenting with left flank pain. She has a history of kidney stones in the past. She states her pain is been present since yesterday. It radiates around to the front. She states that she has nausea as well as hematuria. She also complains of urinary frequency. She states she has multiple stones in her past but usually passes on her own. She states that Dr. Pichardo has had to help her in the past. Patient denies fever. Patient does admit to some diarrhea over the last few days. She denies black or bloody stools. [facility] Medical History Back pain Carpal tunnel syndrome Diabetes Fatigue Kidney disease Kidney stones Migraines Stomach ulcer Thyroid disease Home Medications insulin glargine 100 unit/mL subcutaneous solution 42 unit SC QHS ml 12/10/17 [History Last Taken Unknown] rizatriptan 10 mg PO PRN PRN 12/27/17 [History Last Taken Unknown] levothyroxine 175 mcg PO DAILY 04/05/18 [History Last Taken 07/21/19 10:00] omeprazole 40 mg PO DAILY 03/01/19 [History Last Taken 07/21/19 10:00] insulin lispro 14 unit SQ TID 07/20/19 [History Last Taken 07/21/19 10:00] Allergy/AdvReac Type Severity Reaction Status Date / Time celecoxib [From Celebrex] Allergy Itching Verified 06/03/21 12:47 ciprofloxacin [From Cipro] Allergy Swelling Verified 06/03/21 12:47 ciprofloxacin HCl Allergy Swelling Verified 06/03/21 12:47 [From Cipro] codeine Allergy Hives Verified 06/03/21 12:47 ibuprofen Allergy Hives Verified 06/03/21 12:47 naproxen Allergy Hives Verified 06/03/21 12:47 Penicillins Allergy Hives Verified 06/03/21 12:47 tramadol HCl [From Ultram] Allergy Hives Verified 06/03/21 12:47 ketorolac [From Toradol] AdvReac Swelling Verified 06/03/21 12:47 Family History Other CVA (cerebral vascular accident) Cancer Diabetes Myocardial infarction Surgical History H/O: hysterectomy Hx of section S/P trigger finger release Social History Smoking Status: Current every day smoker tobacco type: e-cigarettes alcohol intake: never ROS ROS ED Constitutional Constitutional ED: Denies chills or fever(s) Eyes Eyes: Denies blurry vision or diplopia ENT ENT ED: Denies rhinorrhea or sore throat Cardiovascular Cardiovascular: Denies chest pain or palpitations Respiratory/Chest Respiratory/Chest: Denies dyspnea, dyspnea on exertion or sputum Gastrointestinal Gastrointestinal: Reports abdominal pain, diarrhea and nausea Genitourinary Genitourinary ED: Reports hematuria and urinary frequency Musculoskeletal Musculoskeletal: Reports back pain; Denies arthralgias or myalgias Integumentary Denies abscess or rash Neurologic Neurologic: Denies headache(s) or paresthesias Psychiatric Psychiatric: Denies anxiety or depression EXAM Physical Exam Const Vital Signs: 06/03/21 12:47 Temperature 97.5 F L Temperature Source Temporal Pulse Rate 102 H Respiratory Rate 16 Blood Pressure 175/94 H Blood Pressure Mean 121 Pulse Ox 100 Oxygen Delivery Method Room Air Positive well nourished General Appearance ED: NAD; Negative for pallor HEENT Reports moist mucous membranes Negative for trauma Eyes PERRL and EOMs intact bilaterally General Eye ED: Negative for pale conjunctiva or scleral icterus Resp normal respiratory effort and clear to auscultation bilaterally Cardio regular rate and regular rhythm GI GI Narrative: Mild left lower quadrant tenderness. Positive for left CVA tenderness. Back/Spine normal to inspection Neuro oriented x3 Sensorium / Orientation: alert Psych mental status grossly normal Mood & Affect: depressed Skin no rashes or lesions noted and no wounds General Skin Exam: Negative for jaundice or pallor MDM MDM MDM Narrative Medical decision making narrative: Patient presenting with left flank pain. I did obtain urinalysis which does show a small amount of occult blood however is not consistent with infection and is slightly contaminated. I will send this for culture. Renal function and electrolytes are normal. Patient's glucose noted to be elevated at 469 however she states that she has been having difficulty controlling this in her doctors are trying to get this under control on outpatient basis. There is no anion gap. CBC is unremarkable. I obtained a CT of the abdomen pelvis without contrast and there appears to be no acute intra-abdominal process. There are no renal calculi or ureteral calculi noted. Patient counseled on findings and will discharge home to follow-up with Dr. Pichardo and her primary care for her hyperglycemia. Impression: 1. Left flank pain 2. Hyperglycemia Lab Data Labs: Laboratory Results - last 24 hr 06/03/21 06/03/21 06/03/21 13:40 13:40 13:40 WBC 5.3 RBC 4.56 Hgb 13.6 Hct 40.6 MCV 89.0 MCH 29.8 MCHC 33.5 RDW Std Deviation 43.5 RDW Coeff of Anisa 13.3 Plt Count 216 MPV 10.2 Immature Gran % (Auto) 0.400 Neut % (Auto) 47.4 Lymph % (Auto) 45.8 H [place] % (Auto) 4.8 Eos % (Auto) 1.0 Baso % (Auto) 0.6 Absolute Neuts (auto) 2.5 Absolute Lymphs (auto) 2.41 Nucleated RBC % 0 Sodium 132 L Potassium 3.6 Chloride 95 L Carbon Dioxide 25.0 Anion Gap 12 BUN 9 Creatinine 1.28 H Estim Creat Clear Calc 34.83 Est GFR (MDRD) Af Amer 55 L Est GFR (MDRD) Non-Af 46 L BUN/Creatinine Ratio 7.0 L Glucose 469 H* Calcium 8.7 Urine Color Yellow Urine Clarity Sl. Cloudy Urine pH 6.0 Ur Specific [place] 1.010 Urine Protein 15 H Urine Glucose (UA) 1000 H Urine Ketones Negative Urine Occult Blood 10 H Urine Nitrite Negative Urine Bilirubin Negative Urine Urobilinogen Normal Ur Leukocyte Esterase 500 H Urine RBC 0-5 SEEN Urine WBC 5-10 SEEN Ur Squamous Epith Cells 5-10 SEEN Urine Bacteria RARE Urine Mucus RARE Urine Yeast RARE Radiography Diagnostic Testing: Radiology Impression Abdomen/Pelvis CT 06/03/21 13:19 IMPRESSION: Normal unenhanced CT of the abdomen and pelvis. Electronically Signed: Anam Zimmer MD at 14:12 EDT Tel , Service support , Discharge Plan Triage Chief Complaint: Back ED Provider: Kelechi Geller Dx/Rx/DC Orders Instructions: ED Diabetic Hyperglycemia, ED Flank Pain, Uncertain Cause Prescriptions: No Action insulin glargine 100 UNIT/ML solution 42 unit SC QHS RF: 0 rizatriptan 10 tablet 10 mg PO PRN PRN (Reason: Migraine Symptoms) RF: 0 levothyroxine 125 MCG tablet 175 mcg PO DAILY RF: 0 omeprazole 40 MG capsule,delayed release(DR/EC) 40 mg PO DAILY RF: 0 insulin lispro 100 UNIT/ML insulin pen 14 unit SQ TID RF: 0 Primary Care Provider: Care Physician,No Primary Referrals: Lio Pichardo MD [STAFF PHYSICIAN] - As soon as possible Care Physician,No Primary [Primary Care Provider] - Disposition Disposition: Home, Self Care
--- NOTE | 2021-06-03 13:19 | CT_ITS ---
STUDY: CT ABDOMEN AND PELVIS WITHOUT CONTRAST REASON FOR EXAM: Female, 55 years old. left flank pain RADIATION DOSAGE (If Supplied By Facility): CTDIvol = ( 10.15 ) mGy, DLP = ( 451.68 ) mGycm TECHNIQUE: Transaxial images were obtained from the dome of the diaphragm to the symphysis pubis without oral contrast, and without intravenous contrast. Sagittal and coronal images were reconstructed. Individualized dose optimization techniques were used for this CT. COMPARISON: 02/28/2021 FINDINGS: The visualized lung bases are unremarkable. Small pericardial effusion. Normal liver. There is non-visualization of the gallbladder, which may be secondary to either contraction or a prior cholecystectomy. Normal spleen. Normal pancreas. Normal bilateral adrenal glands. Normal right kidney. Normal left kidney. Normal visualized stomach. Normal small intestine. Normal colon. The appendix is visualized and appears normal. There is diffuse atherosclerotic calcification of the abdominal aorta, without a demonstrated aneurysm. Normal inferior vena cava. Normal retroperitoneum. Normal urinary bladder. Normal abdominal wall. Normal osseous structures. CT/Abdomen/Pelvis without Cont IMPRESSION: Normal unenhanced CT of the abdomen and pelvis. Electronically Signed: Anam Zimmer MD at 14:12 EDT Tel , Service support ,
[2021-06-03] MEDS: Morphine 4 MG/ML Syringe IV (13:37)
[2021-06-03] MEDS: Ondansetron 4 MG/2 ML Vial IV (13:37)
[2021-06-03] MEDS: 0.9% Normal Saline 1,000 ML 999 ML IV (13:37)
[2021-06-03 13:45] LABS: Color, Urine Yellow (Yellow); Glucose, Dipstick 1000 mg/dl (Normal); Ketone-Dipstick Negative (Negative); Leukocyte Esterase-Dipstick 500 /ul (Negative); Nitrite-Dipstick Negative (Negative); Occult Blood-Urine 10 /ul (Negative); Protein-Dipstick 15 mg/dl (Negative); Urine Bilirubin Dipstick Negative (Negative); Urine Clarity Sl. Cloudy (Clear); Urine Urobilinogen Normal (Normal)
[2021-06-03 13:46] LABS: Absolute Lymphocyte Count 2.41 X10^3/uL (0.83-4.51); Absolute Neutrophil Count 2.5 X10^3/uL (2.0-7.7); Basophil# 0.03 X10^3/uL; Basophil% 0.6 % (0-1); Eosinophil# 0.05 X10^3/uL; Hematocrit 40.6 % (37-47); Hemoglobin 13.6 g/dL (12.0-15.0); Lymphocyte # 2.41 X10^3/ul (0.83-4.51); Lymphocyte % 45.8 % (19-41); Mean Corp Hgb Conc 33.5 g/dL (32-36); Mean Corpuscular Hgb 29.8 pg (27.0-32.0); Mean Platelet Vol. 10.2 fl (6.2-12.0); Monocyte# 0.25 X10^3/uL; Monocyte% 4.8 % (0-10); NRBC Flagged by Analyzer 0 % (0-5); Neutrophil % 47.4 % (47-70); Platelet Count 216 K/mm3 (150-450); RBC Distribution Width CV 13.3 % (11.6-14.6); RBC Distribution Width SD 43.5 fl (35.1-43.9); Red Blood Count 4.56 M/mm3 (4.2-5.4); White Blood Count 5.3 K/mm3 (4.4-11.0)
[2021-06-03 13:52] LABS: Bacteria RARE /hpf (None Seen); Mucous, Urine RARE /hpf (<or=2+); Red Blood Cells-Urine 0-5 SEEN /hpf (0-5); Squamous Epithelial Cells - UA 5-10 SEEN /hpf (5-10); White Blood Cells 5-10 SEEN /hpf (0-5)
[2021-06-03 13:53] LABS: Yeast-Urine RARE /hpf (None Seen)
[2021-06-03 14:06] LABS: Anion Gap 12 (5-15); BUN 9 mg/dL (7-18); Calcium,Total 8.7 mg/dL (8.5-10.1); Chloride 95 mmol/L (98-107); Creatinine, Serum 1.28 mg/dL (0.55-1.02); EST Glomerular Filtration Rate 46 mL/min (>60); Est Glom Filt Rate - Afr Amer 55 mL/min (>60); Estimated Creatinine Clearance 34.83 ml/min; Glucose 469 mg/dL (74-106); Potassium 3.6 mmol/L (3.5-5.1); Sodium Level 132 mmol/L (136-145)
[2021-06-03] MEDS: HYDROmorphone 0.5 MG/0.5 ML SYRINGE IV (14:34)
[2021-06-03 15:05] VITALS: BP 139/89; PULSE 86
== END 2021-06-03 15:05 | disposition home or self-care (01) ==
PROVIDERS: Emergency Provider Student in an Organized Health Care Education/Training Program
DX: R10.9 Unspecified abdominal pain (principal); E11.65 Type 2 diabetes mellitus with hyperglycemia; Z79.1 Long term (current) use of non-steroidal anti-inflammatories (NSAID); Z79.4 Long term (current) use of insulin; Z87.442 Personal history of urinary calculi
CPT/HCPCS: 74176; 80048; 81001; 85025; 87086; 87088; 99282; J7030; A4216; J2405

== ENCOUNTER 2021-06-09 11:22 | Emergency (ER) | payer MEDICARE, SELFPAY ==
[2021-06-09 11:23] VITALS: BP 154/87; PULSE 88; RESP 20; TEMP 36.2; BMI 28.8
--- NOTE | 2021-06-09 11:38 | CM.ED ---
SOCIAL WORK Active ED Care Plan Physician and nurse, Autumn updated patient has ED Care Plan. SW to remain available for needs. Roberto Moore, PROCESS COORDINATOR, [employer]
--- NOTE | 2021-06-09 12:08 | RAD_ITS ---
STUDY: X-RAY - RIGHT FOOT CLINICAL: Female, 55 years old. Laceration and pain overlying the big toe due to injury. TECHNIQUE: 3 view(s) of the foot. COMPARISON: None. FINDINGS: There is a plantar calcaneal spur. Normal visualized subtalar, talonavicular, calcaneocuboid, tarsal and tarsometatarsal articulations. Normal metatarsi. There is degenerative arthrosis of the metatarsophalangeal joint of the hallux . Normal tibial and fibular sesamoid bones. Normal interphalangeal joint of the great toe. Normal phalanges of the great toe. Normal second through fifth metatarsophalangeal joints. Normal interphalangeal joints and phalanges of the lesser toes. Soft tissue swelling. RAD/Foot min 3 Views IMPRESSION: Calcaneal spur. Soft tissue swelling. Electronically Signed: Khoi Al MD at 12:38 EDT , Service support ,
[2021-06-09] MEDS: Diphth,Pertuss(Acell),Tet Vac 0.5 ML Vial IM (12:20)
--- NOTE | 2021-06-09 13:47 | EX.ED.DYSGE1 ---
HPI History of Present Illness Chief Complaint: Lower Extremity Injury Informant: patient Narrative Narrative: 55-year-old female presenting with right great toe pain. Patient states yesterday she dropped a can of tuna fish on her right great toe. She has an abrasion to her toe. Last tetanus is unknown. No other injuries. Recent Illness/Hospitalization: No PFSH PFS Medical History Back pain Carpal tunnel syndrome Diabetes Fatigue Kidney disease Kidney stones Migraines Stomach ulcer Thyroid disease Home Medications insulin glargine 100 unit/mL subcutaneous solution 42 unit SC QHS ml 12/10/17 [History Last Taken Unknown] rizatriptan 10 mg PO PRN PRN 12/27/17 [History Last Taken Unknown] levothyroxine 175 mcg PO DAILY 04/05/18 [History Last Taken 07/21/19 10:00] omeprazole 40 mg PO DAILY 03/01/19 [History Last Taken 07/21/19 10:00] insulin lispro 14 unit SQ TID 07/20/19 [History Last Taken 07/21/19 10:00] Allergy/AdvReac Type Severity Reaction Status Date / Time celecoxib [From Celebrex] Allergy Itching Verified 06/09/21 11:36 ciprofloxacin [From Cipro] Allergy Swelling Verified 06/09/21 11:36 ciprofloxacin HCl Allergy Swelling Verified 06/09/21 11:36 [From Cipro] codeine Allergy Hives Verified 06/09/21 11:36 ibuprofen Allergy Hives Verified 06/09/21 11:36 naproxen Allergy Hives Verified 06/09/21 11:36 Penicillins Allergy Hives Verified 06/09/21 11:36 tramadol HCl [From Ultram] Allergy Hives Verified 06/09/21 11:36 ketorolac [From Toradol] AdvReac Swelling Verified 06/09/21 11:36 Family History Other CVA (cerebral vascular accident) Cancer Diabetes Myocardial infarction Surgical History H/O: hysterectomy Hx of section S/P trigger finger release Social History Smoking Status: Current every day smoker tobacco type: e-cigarettes alcohol intake: never ROS ROS ED Constitutional Constitutional ED: Denies fever(s) Eyes Eyes: Denies change in vision ENT ENT ED: Denies rhinorrhea or sore throat Cardiovascular Cardiovascular: Denies chest pain or palpitations Respiratory/Chest Respiratory/Chest: Denies cough or dyspnea Gastrointestinal Gastrointestinal: Denies abdominal pain, diarrhea, nausea or vomiting Genitourinary Genitourinary ED: Denies dysuria Musculoskeletal Musculoskeletal: Reports other Details: Right great toe pain Integumentary Denies rash Neurologic Neurologic: Denies headache(s) Psychiatric Psychiatric: Denies suicidal thoughts EXAM Physical Exam Const Vital Signs: 06/09/21 11:23 Temperature 97.2 F L Temperature Source Temporal Pulse Rate 88 Respiratory Rate 20 H Blood Pressure 154/87 H Blood Pressure Mean 109 Positive well nourished and well developed General Appearance ED: well developed HEENT Reports normocephalic and head/scalp atraumatic Eyes PERRL and EOMs intact bilaterally Neck supple General: Negative for tenderness Chest Wall inspection of chest normal Resp normal respiratory effort and clear to auscultation bilaterally Cardio regular rate and regular rhythm no CVA tenderness Extremity Extremity Narrative: Right great toe diffuse tenderness with superficial abrasion. Normal cap refill. Remainder of foot and ankle are nontender. Neuro oriented x3 Sensorium / Orientation: alert Psych mental status grossly normal MDM MDM MDM Narrative Medical decision making narrative: Right foot x-ray read by myself and radiology shows soft tissue swelling. Patient was given Adacel. Wound was cleaned and dressed. She was given a postop shoe. Advised to follow-up with primary care physician. Advised return to ED for worsening complaints. Radiography Diagnostic Testing: Radiology Impression Foot X-Ray 06/09/21 12:08 IMPRESSION: Calcaneal spur. Soft tissue swelling. Electronically Signed: Khoi Al MD at 12:38 EDT , Service support , Discharge Plan Triage Chief Complaint: Lower Extremity Injury ED Provider: Sandra Stephenson Dx/Rx/DC Orders Clinical Impression: Contusion of great toe, right Instructions: Bruises (Contusions) Prescriptions: No Action insulin glargine 100 UNIT/ML solution 42 unit SC QHS RF: 0 rizatriptan 10 tablet 10 mg PO PRN PRN (Reason: Migraine Symptoms) RF: 0 levothyroxine 125 MCG tablet 175 mcg PO DAILY RF: 0 omeprazole 40 MG capsule,delayed release(DR/EC) 40 mg PO DAILY RF: 0 insulin lispro 100 UNIT/ML insulin pen 14 unit SQ TID RF: 0 Primary Care Provider: Care Physician,No Primary Referrals: Care Physician,No Primary [Primary Care Provider] - Mike Davey DO [NON-STAFF] - Disposition Disposition: Home, Self Care
== END 2021-06-09 14:06 | disposition home or self-care (01) ==
PROVIDERS: Emergency Provider Emergency Medicine
DX: S90.111A Contusion of right great toe without damage to nail, initial encounter (principal); M77.31 Calcaneal spur, right foot; E11.9 Type 2 diabetes mellitus without complications; Z23 Encounter for immunization; Z79.1 Long term (current) use of non-steroidal anti-inflammatories (NSAID); Z79.4 Long term (current) use of insulin; W20.8XXA Other cause of strike by thrown, projected or falling object, initial encounter; Y93.89 Activity, other specified; Y92.9 Unspecified place or not applicable; Y99.9 Unspecified external cause status
CPT/HCPCS: 73630; 90715; 99282; A4216

== ENCOUNTER 2021-06-20 14:57 | Inpatient (IN) | payer MEDICARE, MEDICAID, SELFPAY ==
[2021-06-20 14:58] VITALS: BP 164/88; PULSE 91; RESP 17; TEMP 35.8; O2SAT 97; BMI 41.5
[2021-06-20 15:37] LABS: Bacteria 0 SEEN /hpf (None Seen); Mucous, Urine 0 SEEN /hpf (<or=2+); Red Blood Cells-Urine 0 SEEN /hpf (0-5)
[2021-06-20 15:55] LABS: Amphetamine Urine VISTA NEGATIVE (<1000 ng/mL); Barbiturate Urine VISTA NEGATIVE (< 200 ng/mL); Benzodiazepine Urine VISTA NEGATIVE (< 200 ng/mL); Cocaine Urine VISTA NEGATIVE (< 300 ng/mL); Ecstacy Urine VISTA NEGATIVE (< 500 ng/mL); Methadone Urine VISTA NEGATIVE (< 300 ng/mL); PCP Urine VISTA NEGATIVE (< 25 ng/mL); THC Urine VISTA NEGATIVE (< 50 ng/mL); Vista UDS pH Range 6
[2021-06-20 15:58] LABS: Color, Urine Yellow (Yellow); Glucose, Dipstick 1000 mg/dl (Normal); Ketone-Dipstick Negative (Negative); Leukocyte Esterase-Dipstick 25 /ul (Negative); Nitrite-Dipstick Negative (Negative); Occult Blood-Urine 25 /ul (Negative); Protein-Dipstick 100 mg/dl (Negative); Specific Gravity, Urine 1.015 (1.002-1.030); Urine Bilirubin Dipstick Negative (Negative); Urine Clarity Clear (Clear); Urine Urobilinogen Normal (Normal)
--- NOTE | 2021-06-20 16:04 | EX.ED.SAOD ---
HPI History of Present Illness Chief Complaint: Substance Abuse Informant: patient Onset/Context/Timing Context: Gradual Onset Timing: Continuous Current Severity: Mild Maximum Severity: Mild Associated Symptoms Associated Symptoms: Positive for diarrhea* Narrative Narrative: 55-year-old female states she has had a history of oxycodone abuse for years. States she is never gone through detox before. Also has a history of diabetes and kidney stones. She states this time to get my life together and she wants to go through detox. Prior similar symptoms: Yes Recent Illness/Hospitalization: No PFSH PFSH Medical History Back pain Carpal tunnel syndrome Diabetes Fatigue Kidney disease Kidney stones Migraines Stomach ulcer Thyroid disease Home Medications insulin glargine 100 unit/mL subcutaneous solution 42 unit SC QHS ml 12/10/17 [History Last Taken Unknown] rizatriptan 10 mg PO PRN PRN 12/27/17 [History Last Taken Unknown] levothyroxine 175 mcg PO DAILY 04/05/18 [History Last Taken 07/21/19 10:00] omeprazole 40 mg PO DAILY 03/01/19 [History Last Taken 07/21/19 10:00] insulin lispro 14 unit SQ TID 07/20/19 [History Last Taken 07/21/19 10:00] Allergy/AdvReac Type Severity Reaction Status Date / Time celecoxib [From Celebrex] Allergy Itching Verified 06/20/21 14:57 ciprofloxacin [From Cipro] Allergy Swelling Verified 06/20/21 14:57 ciprofloxacin HCl Allergy Swelling Verified 06/20/21 14:57 [From Cipro] codeine Allergy Hives Verified 06/20/21 14:57 ibuprofen Allergy Hives Verified 06/20/21 14:57 naproxen Allergy Hives Verified 06/20/21 14:57 Penicillins Allergy Hives Verified 06/20/21 14:57 tramadol HCl [From Ultram] Allergy Hives Verified 06/20/21 14:57 ketorolac [From Toradol] AdvReac Swelling Verified 06/20/21 14:57 Family History Other CVA (cerebral vascular accident) Cancer Diabetes Myocardial infarction Surgical History H/O: hysterectomy Hx of section S/P trigger finger release Social History Smoking Status: Current every day smoker tobacco type: e-cigarettes alcohol intake: never ROS ROS ED ROS Narrative Diarrhea otherwise negative. Denies recent illness. Review of Systems ROS Unobtainable: Denies due to encephalopathy Constitutional Constitutional ED: Denies fever(s) Eyes Eyes: Denies change in vision ENT ENT ED: Denies ear pain Cardiovascular Cardiovascular: Denies chest pain Respiratory/Chest Respiratory/Chest: Denies dyspnea Gastrointestinal Gastrointestinal: Reports diarrhea; Denies abdominal pain, nausea or vomiting Genitourinary Genitourinary ED: Denies dysuria Musculoskeletal Musculoskeletal: Denies myalgias Integumentary Denies rash Neurologic Neurologic: Denies headache(s) Psychiatric Psychiatric: Denies depression Endocrine Endocrinology: Denies polyuria Hematologic/Lymphatic Hematologic/Lymphatic: Denies easy bruising Allergic/Immunologic Allergic/Immunologic ED: Denies urticaria EXAM Physical Exam Narrative Exam Narrative: Well-appearing middle-aged female no acute distress. Vital signs stable afebrile. Lungs are clear. Heart regular rhythm. Abdomen soft nontender. Moving all 4 extremities. Neurologically awake and alert with no focal motor deficits. Const Vital Signs: 06/20/21 14:58 Temperature 96.5 F L Temperature Source Temporal Pulse Rate 91 Respiratory Rate 17 Blood Pressure 164/88 H Blood Pressure Mean 113 Pulse Ox 97 Oxygen Delivery Method Room Air Positive well nourished and well developed; Negative for unkempt General Appearance ED: well developed and NAD; Negative for unkempt HEENT Reports moist mucous membranes atraumatic; Negative for trauma or tenderness Eyes PERRL and EOMs intact bilaterally Neck no lymphadenopathy, supple and no JVD Thyroid: Negative for tender Lymph Lymphatic: no lymphadenopathy noted; Negative for lymphadenopathy Chest Wall inspection of chest normal and palpation of chest normal Resp normal respiratory effort and clear to auscultation bilaterally Auscultation: Negative for rales, rhonchi or wheezes Cardio regular rate, regular rhythm, S1 normal heart sound, S2 normal heart sound and no murmurs GI soft to palpation, non-tender, non-distended and no masses Inspection: Negative for abdominal distention Palpation: Negative for tender, guarding or rigid Back/Spine no CVA tenderness General Back: Negative for CVA tenderness Extremity Extremity Narrative: Nontender. No edema. Normal range of motion. Normal strength. General Extremety ED: Negative for edema or tenderness General Extremity: Negative for edema Neuro oriented x3, CN's II-XII intact bilaterally and no sensory deficits noted Sensorium / Orientation: alert, oriented to person, oriented to place and oriented to time; Negative for confused, lethargic or stuporous Motor Exam: strength 5/5 throughout; Negative for general weakness Psych mental status grossly normal and thought process normal Appearance: Negative for unkempt Attitude: No agitated and No aggressive Mood & Affect: Negative for depressed or tearful Skin Lesions: no lesions Rashes: no rashes MDM MDM MDM Narrative Medical decision making narrative: Middle-aged female history of oxycodone abuse requesting Lab Data Attestation: I reviewed the patient's lab results. Lab results narrative: Positive for opiates. Detox. Exam unremarkable. Screening labs being obtained. I am the hospitalist on page for admission. Labs: Laboratory Results - last 24 hr 06/20/21 15:25 Urine Opiates Screen POSITIVE H Urine Methadone Screen NEGATIVE Ur Barbiturates Screen NEGATIVE Ur Phencyclidine Scrn NEGATIVE Ur Amphetamines Screen NEGATIVE U Methamphetamin-MDMA NEGATIVE U Benzodiazepines Scrn NEGATIVE Urine Cocaine Screen NEGATIVE U Cannabinoids Screen NEGATIVE Ur Drug Screen Comment Discharge Plan Triage Chief Complaint: Substance Abuse ED Provider: Bronson Retana Dx/Rx/DC Orders Clinical Impression: Opiate abuse, continuous, Desire for detoxification Prescriptions: No Action insulin glargine 100 UNIT/ML solution 42 unit SC QHS RF: 0 rizatriptan 10 tablet 10 mg PO PRN PRN (Reason: Migraine Symptoms) RF: 0 levothyroxine 125 MCG tablet 175 mcg PO DAILY RF: 0 omeprazole 40 MG capsule,delayed release(DR/EC) 40 mg PO DAILY RF: 0 insulin lispro 100 UNIT/ML insulin pen 14 unit SQ TID RF: 0 Primary Care Provider: Care Physician,No Primary Referrals: Care Physician,No Primary [Primary Care Provider] - Disposition Disposition: Acute Care Hospital [facility]
[2021-06-20 16:19] LABS: Absolute Lymphocyte Count 2.46 X10^3/uL (0.83-4.51); Absolute Neutrophil Count 3.2 X10^3/uL (2.0-7.7); Basophil# 0.05 X10^3/uL; Basophil% 0.8 % (0-1); Eosinophil# 0.04 X10^3/uL; Eosinophils% 0.7 % (0-5); Hematocrit 37.7 % (37-47); Hemoglobin 12.9 g/dL (12.0-15.0); Lymphocyte # 2.46 X10^3/ul (0.83-4.51); Lymphocyte % 41.1 % (19-41); Mean Corp Hgb Conc 34.2 g/dL (32-36); Mean Corpuscular Hgb 30.1 pg (27.0-32.0); Mean Corpuscular Volume 88.1 fL (81-99); Mean Platelet Vol. 9.7 fl (6.2-12.0); Monocyte# 0.22 X10^3/uL; Monocyte% 3.7 % (0-10); NRBC Flagged by Analyzer 0 % (0-5); Neutrophil # 3.19 X10^3/uL (2.7-7.7); Neutrophil % 53.4 % (47-70); Platelet Count 215 K/mm3 (150-450); RBC Distribution Width CV 13.3 % (11.6-14.6); RBC Distribution Width SD 43.4 fl (35.1-43.9); Red Blood Count 4.28 M/mm3 (4.2-5.4)
[2021-06-20 16:20] LABS: Squamous Epithelial Cells - UA 0-5 SEEN /hpf (5-10); White Blood Cells 0-5 SEEN /hpf (0-5)
--- NOTE | 2021-06-20 16:23 | CM.ED ---
SOCIAL WORK Referral Source: Self-referral Reason for Consult: Substance Abuse/Active ED Care Plan Met with patient in room. Introduced role and reason for referral. Patient presents to ER for detox from opiates. Patient states last use was at 11:30a. Patient states has already been working with [facility]. Education provided on [facility] and informed Addiction Therapist will be in to meet with patient tomorrow. Call to Treatment Navigator, Mary to update on plan for [facility] admission. Mary to be in tomorrow to complete assessments. Plan: Admit to [facility] Roberto Moore MSW, ELECTRICAL DEVELOPMENT ENGINEER
[2021-06-20 16:33] LABS: Anion Gap 9 (5-15); BUN 13 mg/dL (7-18); BUN/Creat Ratio 10.9 RATIO (10-20); Chloride 94 mmol/L (98-107); Creatinine, Serum 1.19 mg/dL (0.55-1.02); EST Glomerular Filtration Rate 50 mL/min (>60); Est Glom Filt Rate - Afr Amer 60 mL/min (>60); Estimated Creatinine Clearance 37.47 ml/min; Glucose 413 mg/dL (74-106); Potassium 3.6 mmol/L (3.5-5.1); Sodium Level 130 mmol/L (136-145)
[2021-06-20 16:42] LABS: Alcohol, Blood (Medical)-Serum < 3.0 mg/dL
[2021-06-20 17:10] VITALS: BP 121/78; PULSE 72; RESP 16; TEMP 36.6; O2SAT 97
[2021-06-20 17:53] VITALS: BP 150/72; PULSE 61; RESP 16; TEMP 36.5; O2SAT 100; BMI 34.6
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
[2021-06-20] MEDS: QUEtiapine 100 MG Tablet PO (21:12)
[2021-06-20] MEDS: ARIPiprazole 10 MG Tablet 15 MG PO (21:12)
[2021-06-20] MEDS: Insulin Lispro 100 UNIT/ML INSULN.PEN SC (21:13)
[2021-06-20 21:21] VITALS: BP 132/79; PULSE 68; RESP 18; TEMP 36.5; O2SAT 99
[2021-06-20 22:50] LABS: Bedside Glucose 438 mg/dL (70-110)
[2021-06-21 03:12] VITALS: BP 103/59; PULSE 79; RESP 18; TEMP 36.6; O2SAT 95
[2021-06-21] MEDS: hydrOXYzine PAM 25 MG Capsule 50 MG PO (04:45)
[2021-06-21] MEDS: Ondansetron 8 MG Tablet PO ×2 (04:45→16:51)
[2021-06-21] MEDS: Buprenorphine HCl 2 MG TAB.SUBL SL ×3 (04:45→20:21)
[2021-06-21] MEDS: Dicyclomine 10 MG Capsule 20 MG PO (04:45)
[2021-06-21] MEDS: Levothyroxine 175 MCG Tablet PO (05:37)
[2021-06-21 08:46] LABS: Anion Gap 9 (5-15); BUN 15 mg/dL (7-18); BUN/Creat Ratio 11.8 RATIO (10-20); Chloride 94 mmol/L (98-107); Creatinine, Serum 1.27 mg/dL (0.55-1.02); EST Glomerular Filtration Rate 46 mL/min (>60); Est Glom Filt Rate - Afr Amer 56 mL/min (>60); Estimated Creatinine Clearance 35.11 ml/min; Glucose 369 mg/dL (74-106); Potassium 3.5 mmol/L (3.5-5.1); Sodium Level 132 mmol/L (136-145)
[2021-06-21 10:00] VITALS: BP 123/74; PULSE 70; RESP 18; TEMP 37.2; O2SAT 96
[2021-06-21 10:10] LABS: Bedside Glucose 373 mg/dL (70-110)
--- NOTE | 2021-06-21 10:14 | PN.HOSP_ITS ---
Subjective Subjective Patient reports that she was initially started on narcotics for her chronic pain. She now has been unable to stop taking them and wants to. She currently is having minimal withdrawal symptoms on the Subutex. Objective Data Objective Data Vital Signs: Vital Signs Temp Pulse Resp BP Pulse Ox 97.9 F 79 18 103/59 L 95 06/21/21 03:12 06/21/21 03:12 06/21/21 03:12 06/21/21 03:12 06/21/21 03:12 Oxygen Delivery Method Room Air Weight: 80.377 kg Body Mass Index (BMI) 34.6 Intake & Output: Intake and Output for Last 24 Hours 06/19/21 06/20/21 06/21/21 23:59 23:59 23:59 Intake Total 340 / 340 120 / 120 Output Total 0 / 0 Balance 340 / 340 120 / 120 Lab / Micro Data Result Diagrams: 06/20/21 16:13 06/21/21 07:46 Labs: Laboratory Results - last 24 hr 06/20/21 15:25: Urine Opiates Screen POSITIVE H, Urine Methadone Screen NEGATIVE, Ur Barbiturates Screen NEGATIVE, Ur Phencyclidine Scrn NEGATIVE, Ur Amphetamines Screen NEGATIVE, U Methamphetamin-MDMA NEGATIVE, U Benzodiazepines Scrn NEGATIVE, Urine Cocaine Screen NEGATIVE, U Cannabinoids Screen NEGATIVE, Ur Drug Screen Comment 06/20/21 15:25: Urine Color Yellow, Urine Clarity Clear, Urine pH 6.0, Ur Specific [place] 1.015, Urine Protein 100 H, Urine Glucose (UA) 1000 H, Urine Ketones Negative, Urine Occult Blood 25 H, Urine Nitrite Negative, Urine Bilirubin Negative, Urine Urobilinogen Normal, Ur Leukocyte Esterase 25 H, Urine RBC 0 SEEN, Urine WBC 0-5 SEEN, Ur Squamous Epith Cells 0-5 SEEN, Urine Bacteria 0 SEEN, Urine Mucus 0 SEEN 06/20/21 16:13: WBC 6.0, RBC 4.28, Hgb 12.9, Hct 37.7, MCV 88.1, MCH 30.1, MCHC 34.2, RDW Std Deviation 43.4, RDW Coeff of Anisa 13.3, Plt Count 215, MPV 9.7, Immature Gran % (Auto) 0.300, Neut % (Auto) 53.4, Lymph % (Auto) 41.1 H, [place] % (Auto) 3.7, Eos % (Auto) 0.7, Baso % (Auto) 0.8, Absolute Neuts (auto) 3.2, Absolute Lymphs (auto) 2.46, Nucleated RBC % 0 06/20/21 16:13: Sodium 130 L, Potassium 3.6, Chloride 94 L, Carbon Dioxide 27.0, Anion Gap 9, BUN 13, Creatinine 1.19 H, Estim Creat Clear Calc 37.47, Est GFR (MDRD) Af Amer 60, Est GFR (MDRD) Non-Af 50 L, BUN/Creatinine Ratio 10.9, Glucose 413 H, Calcium 9.0 06/20/21 16:13: Ethyl Alcohol < 3.0 06/20/21 21:05: POC Glucose 438 H 06/21/21 07:46: Sodium 132 L, Potassium 3.5, Chloride 94 L, Carbon Dioxide 29.0, Anion Gap 9, BUN 15, Creatinine 1.27 H, Estim Creat Clear Calc 35.11, Est GFR (MDRD) Af Amer 56 L, Est GFR (MDRD) Non-Af 46 L, BUN/Creatinine Ratio 11.8, Glucose 369 H, Calcium 9.0 06/21/21 10:03: POC Glucose 373 H Micro: Microbiology 06/20/21 16:17 Nasal Secretion SARS-CoV-2 Antigen (Rapid) - Final Physical Exam Const alert, oriented x3 and no apparent distress Constitutional Narrative: Upper middle-aged white female lying in bed, appears much older than stated age, nontoxic-appearing, pleasant, appears to be comfortable Exam Limitations: no limitations Nutritional Appearance: obese HEENT head/scalp atraumatic Head and Scalp: normocephalic Eyes PERRL and EOMs intact bilaterally Resp normal respiratory effort, no retractions, no use of accessory muscles and clear to auscultation bilaterally Auscultation: Negative for crackles, rales, rhonchi or wheezes Cardio regular rate, regular rhythm, S1 normal heart sound, S2 normal heart sound, no murmurs, no rub, no gallops, no clicks and no JVD GI normal to inspection, nondistended, normoactive bowel sounds, soft to palpation, non-tender and non-distended Extremity no clubbing, cyanosis or edema Peripheral Pulses: Yes pulses 2+ throughout Neuro oriented x3, moves all extremities and no focal motor deficits Sensorium / Orientation: awake and alert Speech: speech normal Psych affect normal Psych Narrative: Appropriately interactive Assessment & Plan Assessment/Plan (1) Opiate abuse, continuous: (2) Opiate withdrawal: (3) Type II diabetes mellitus, uncontrolled: QUALIFIERS: Coma presence: without coma PLAN: Acute opiate withdrawal -Patient on OxyIR 5 mg 5 times a day for years she states she buys them off the street -She had been trying to cut down the amount she was taking and wean herself but she was unable to do so -Presented with with desire for treatment -Buprenorphine taper started -Continue supportive medications -180 consultation Chronic hyponatremia -Slowly trending up -Current sodium 132 -Baseline appears to be -121-133 -Suspect this may be all pseudohyponatremia as blood sugars are consistently elevated -We will try to improve blood sugar control and monitor sodium DM-2 uncontrolled -Patient is currently on Lantus 42 units at at bedtime and Humalog 14 units 3 times daily -Continue Accu-Cheks -It appears that the patient may be very resistant to insulin -Continue sliding scale -Carb controlled diet Hypothyroidism -Continue levothyroxine GERD -Continue PPI Bipolar disorder/PTSD -Continue home medications of Celexa, Abilify, Seroquel -Recommended psychiatry follow-up outpatient Tobacco abuse -Suspect COPD at baseline but no documented PFTs -Nicotine replacement -Recommend cessation DVT prophylaxis -Early ambulation protocol -Low risk Charges/Coding Visit Charges Inpatient E&M: 54837 Subs Hosp L2
[2021-06-21] MEDS: Insulin Lispro 100 UNIT/ML INSULN.PEN SC (10:52)
[2021-06-21] MEDS: Pantoprazole Sodium 40 MG Tablet PO (10:54)
[2021-06-21] MEDS: Citalopram 20 MG Tablet PO (10:54)
[2021-06-21] MEDS: Insulin Lispro 100 UNIT/ML INSULN.PEN 14 UNIT SC (12:15)
[2021-06-21 12:20] LABS: Bedside Glucose 315 mg/dL (70-110)
[2021-06-21 16:40] VITALS: BP 100/49; PULSE 67; RESP 16; TEMP 36.9; O2SAT 94
--- NOTE | 2021-06-21 16:50 | NURSING ---
blood sugar 51. gave 4 oz OJ per policy. will recheck blood sugar in 15 min.
[2021-06-21] MEDS: Methocarbamol 750 MG Tablet 1500 MG PO (16:51)
[2021-06-21 17:16] LABS: Bedside Glucose 75 mg/dL (70-110)
[2021-06-21 17:16] LABS: Bedside Glucose 51 mg/dL (70-110)
[2021-06-21 17:55] LABS: Bedside Glucose 107 mg/dL (70-110)
[2021-06-21 20:12] VITALS: BP 149/83; PULSE 73; RESP 18; TEMP 36.9; O2SAT 95
[2021-06-21] MEDS: Acetaminophen 500 MG Tablet PO (20:20)
[2021-06-21] MEDS: QUEtiapine 100 MG Tablet PO (22:23)
[2021-06-21] MEDS: ARIPiprazole 10 MG Tablet 15 MG PO (22:23)
[2021-06-21 22:31] LABS: Bedside Glucose 217 mg/dL (70-110)
[2021-06-22] MEDS: proMETHazine 25 MG Tablet PO (00:31)
[2021-06-22 02:09] VITALS: BP 120/72; PULSE 66; RESP 18; TEMP 36.9; O2SAT 94
[2021-06-22] MEDS: Buprenorphine HCl 2 MG TAB.SUBL SL ×3 (05:46→20:34)
[2021-06-22] MEDS: Levothyroxine 175 MCG Tablet PO (07:12)
[2021-06-22 07:15] LABS: Bedside Glucose 245 mg/dL (70-110)
[2021-06-22 08:00] VITALS: PULSE 63; RESP 20
[2021-06-22 08:45] VITALS: BP 115/55; PULSE 63; RESP 20; TEMP 36.6; O2SAT 96
--- NOTE | 2021-06-22 09:21 | PCM.PN.HOSP ---
Subjective Subjective Patient did have a hypoglycemic episode yesterday before she ate dinner. I suspect this is most likely related to her scheduled log and the sliding scale she got at lunch yesterday which resulted in a total of 26 units being given prior to eating. The patient currently states she feels well and has no complaints. Objective Data Objective Data Vital Signs: Vital Signs Temp Pulse Resp BP Pulse Ox 98.4 F 66 18 120/72 94 06/22/21 02:09 06/22/21 02:09 06/22/21 02:09 06/22/21 02:09 06/22/21 02:09 Oxygen Delivery Method Room Air Weight: 80.4 kg Body Mass Index (BMI) 34.6 Intake & Output: Intake and Output for Last 24 Hours 06/20/21 06/21/21 06/22/21 23:59 23:59 23:59 Intake Total 340 / 340 940 / 1140 600 / 600 Output Total 0 / 0 Balance 340 / 340 940 / 1140 600 / 600 Lab / Micro Data Result Diagrams: 06/20/21 16:13 06/21/21 07:46 Labs: Laboratory Results - last 24 hr 06/21/21 10:03: POC Glucose 373 H 06/21/21 12:14: POC Glucose 315 H 06/21/21 16:48: POC Glucose 51 L 06/21/21 17:06: POC Glucose 75 06/21/21 17:52: POC Glucose 107 06/21/21 22:22: POC Glucose 217 H 06/22/21 07:11: POC Glucose 245 H Micro: Microbiology 06/20/21 16:17 Nasal Secretion SARS-CoV-2 Antigen (Rapid) - Final Physical Exam Const alert, oriented x3, no apparent distress, average body habitus and healthy appearing Constitutional Narrative: Upper middle-aged white female sitting up in bed eating breakfast and watching television, appears comfortable and nontoxic General Appearance: cooperative, well kempt and well developed Orientation / Consciousness: awake, oriented to person, oriented to place and oriented to time Exam Limitations: no limitations Nutritional Appearance: obese HEENT normocephalic, head/scalp atraumatic, hearing grossly normal bilaterally and moist oral mucous membranes HEENT Narrative: No thrush Head and Scalp: normocephalic Neck nuchal rigidity and thyroid normal General: trachea midline Resp normal respiratory effort, no retractions, no use of accessory muscles and clear to auscultation bilaterally Auscultation: Negative for crackles, rales, rhonchi or wheezes Cardio regular rate, regular rhythm, S1 normal heart sound, S2 normal heart sound, no murmurs, no rub, no gallops, no clicks and no JVD GI normal to inspection, nondistended, normoactive bowel sounds, soft to palpation, non-tender and non-distended Extremity normal to inspection, full ROM and no clubbing, cyanosis or edema Skin General Skin Exam: no breakdown Neuro oriented x3, moves all extremities and no focal motor deficits Sensorium / Orientation: awake and alert Speech: speech normal Psych thought process normal and affect normal Psych Narrative: Appropriately interactive and very pleasant Assessment & Plan Assessment/Plan (1) Opiate abuse, continuous: (2) Opiate withdrawal: (3) Type II diabetes mellitus, uncontrolled: QUALIFIERS: Coma presence: without coma PLAN: Acute opiate withdrawal -Patient on OxyIR 5 mg 5 times a day for years she states she buys them off the street -She had been trying to cut down the amount she was taking and wean herself but she was unable to do so -Presented with with desire for treatment -Buprenorphine to continue -Continue supportive medications -180 consultation--> no note noted in the electronic chart we will check the hard chart on the floor for plan -Possible discharge tomorrow depending on discharge charge coordination from 180 Chronic hyponatremia -Slowly trending up -Current sodium 132 -Baseline appears to be 129-133 -Suspect this may be all pseudohyponatremia as blood sugars are consistently elevated -We will try to improve blood sugar control and monitor sodium -Repeat BMP in a.m. DM-2 uncontrolled -Continue twice daily Lantus dosing but increase to 38 units as fasting sugar was elevated this a.m. -Increase scheduled insulin to 18 units 3 times daily -Continue Accu-Cheks -It appears that the patient may be very resistant to insulin -Hold sliding scale at this time -Carb controlled diet -We will refer to endocrinology as an outpatient Hypothyroidism -Continue levothyroxine GERD -Continue PPI Bipolar disorder/PTSD -Continue home medications of Celexa, Abilify, Seroquel -Recommended psychiatry follow-up outpatient Tobacco abuse -Suspect COPD at baseline but no documented PFTs -Nicotine replacement -Recommend cessation DVT prophylaxis -Early ambulation protocol -Low risk Charges/Coding Visit Charges Inpatient E&M: 12405 Subs Hosp L2
[2021-06-22] MEDS: Pantoprazole Sodium 40 MG Tablet PO (09:47)
[2021-06-22] MEDS: Citalopram 20 MG Tablet PO (09:47)
[2021-06-22] MEDS: Insulin Lispro 100 UNIT/ML INSULN.PEN 18 UNIT SC ×3 (09:52→17:35)
[2021-06-22 14:00] VITALS: PULSE 65; RESP 20; O2SAT 96
[2021-06-22 14:16] VITALS: BP 116/59; PULSE 65; RESP 20; TEMP 36.6; O2SAT 96
[2021-06-22 15:51] LABS: Bedside Glucose 190 mg/dL (70-110)
[2021-06-22 17:40] LABS: Bedside Glucose 158 mg/dL (70-110)
[2021-06-22] MEDS: Dicyclomine 10 MG Capsule 20 MG PO (19:06)
[2021-06-22] MEDS: Ondansetron 8 MG Tablet PO (19:06)
[2021-06-22 20:23] VITALS: BP 104/51; PULSE 67; RESP 16; TEMP 36.6; O2SAT 96
[2021-06-22] MEDS: hydrOXYzine PAM 25 MG Capsule 50 MG PO (20:34)
[2021-06-22] MEDS: Methocarbamol 750 MG Tablet 1500 MG PO (20:34)
[2021-06-22] MEDS: ARIPiprazole 10 MG Tablet 15 MG PO (21:27)
[2021-06-22] MEDS: QUEtiapine 100 MG Tablet PO (21:27)
[2021-06-22 21:35] LABS: Bedside Glucose 75 mg/dL (70-110)
[2021-06-23] MEDS: Acetaminophen 500 MG Tablet PO (01:14)
[2021-06-23] MEDS: cloNIDine HCl 0.1 MG Tablet PO (01:21)
[2021-06-23 02:25] VITALS: BP 144/83; PULSE 65; RESP 16; TEMP 36.6; O2SAT 96
[2021-06-23] MEDS: Levothyroxine 175 MCG Tablet PO (05:05)
[2021-06-23] MEDS: Buprenorphine HCl 2 MG TAB.SUBL SL ×2 (05:05→15:46)
[2021-06-23 07:14] LABS: Absolute Lymphocyte Count 3.44 X10^3/uL (0.83-4.51); Absolute Neutrophil Count 5.3 X10^3/uL (2.0-7.7); Basophil# 0.06 X10^3/uL; Basophil% 0.6 % (0-1); Eosinophil# 0.09 X10^3/uL; Hematocrit 33.2 % (37-47); Hemoglobin 11.2 g/dL (12.0-15.0); Lymphocyte # 3.44 X10^3/ul (0.83-4.51); Mean Corp Hgb Conc 33.7 g/dL (32-36); Mean Corpuscular Hgb 30.4 pg (27.0-32.0); Mean Corpuscular Volume 90.2 fL (81-99); Mean Platelet Vol. 9.9 fl (6.2-12.0); Monocyte# 0.36 X10^3/uL; Monocyte% 3.9 % (0-10); NRBC Flagged by Analyzer 0 % (0-5); Neutrophil # 5.31 X10^3/uL (2.7-7.7); Neutrophil % 57.2 % (47-70); Platelet Count 190 K/mm3 (150-450); RBC Distribution Width CV 13.3 % (11.6-14.6); RBC Distribution Width SD 44.3 fl (35.1-43.9); Red Blood Count 3.68 M/mm3 (4.2-5.4); White Blood Count 9.3 K/mm3 (4.4-11.0)
[2021-06-23 07:34] LABS: Anion Gap 8 (5-15); BUN 16 mg/dL (7-18); BUN/Creat Ratio 13.9 RATIO (10-20); Calcium,Total 8.9 mg/dL (8.5-10.1); Chloride 92 mmol/L (98-107); Creatinine, Serum 1.15 mg/dL (0.55-1.02); EST Glomerular Filtration Rate 52 mL/min (>60); Est Glom Filt Rate - Afr Amer 62 mL/min (>60); Estimated Creatinine Clearance 38.77 ml/min; Glucose 116 mg/dL (74-106); Potassium 3.3 mmol/L (3.5-5.1); Sodium Level 129 mmol/L (136-145)
[2021-06-23 07:40] LABS: Bedside Glucose 126 mg/dL (70-110)
[2021-06-23 08:15] VITALS: BP 94/66; PULSE 65; RESP 16; TEMP 36.8; O2SAT 97
[2021-06-23] MEDS: Potassium Chloride Oral Tablet 20 MEQ 60 MEQ PO (08:22)
[2021-06-23] MEDS: Insulin Lispro 100 UNIT/ML INSULN.PEN 18 UNIT SC ×2 (08:23→12:21)
[2021-06-23] MEDS: Citalopram 20 MG Tablet PO (08:24)
[2021-06-23] MEDS: Pantoprazole Sodium 40 MG Tablet PO (08:24)
[2021-06-23 11:31] VITALS: BP 95/68; PULSE 64; RESP 16; TEMP 36.8; O2SAT 95
[2021-06-23 11:31] LABS: Bedside Glucose 84 mg/dL (70-110)
--- NOTE | 2021-06-23 11:56 | ADDICTION ---
TW met with PT to set up discharge planning and appointment. PT requested to return to [facility] beds at the [facility]. No transportation needs noted. PT's appt is 06/27/2021 at 12:30PM.
--- NOTE | 2021-06-23 12:30 | PCM.DC.SUM ---
Providers Date of Admission: 06/20/21 Primary Care Physician: No Primary Care Phys Reason For Visit: OPIATE DETOX Diagnosis Discharge Diagnosis (1) Opiate abuse, continuous: Status: Acute Code(s): F11.10 - Opioid abuse, uncomplicated (2) Opiate withdrawal: Status: Acute Code(s): F11.23 - Opioid dependence with withdrawal (3) Type II diabetes mellitus, uncontrolled: Status: Chronic Code(s): E11.65 - Type 2 diabetes mellitus with hyperglycemia Qualifiers: Coma presence: without coma Medications at Discharge Home Medications rizatriptan 10 mg PO PRN PRN 12/27/17 levothyroxine 175 mcg PO DAILY 04/05/18 omeprazole 40 mg PO DAILY 03/01/19 insulin lispro 14 unit SQ TID 07/20/19 aripiprazole [Abilify] 15 mg PO QHS 06/20/21 citalopram [Celexa] 20 mg PO DAILY 06/20/21 quetiapine [Seroquel] 100 mg PO QHS 06/20/21 insulin glargine [Lantus Solostar U-100 Insulin] 38 unit SUBCUT BID #15 ml 06/23/21 pen needle,diabetic, disp unit #100 ea 06/23/21 Hospital Course Operations None Procedures None Summary of Care Provided Minutes Spent on Discharge: 39 Hospital Course: Mrs. Brar is a 55-year-old female who presented to the emergency department at [facility] on 06/20/2021 requesting opiate detox. On admission she reported that she was taking OxyIR 5 mg 5 times a day for years but she is using them by buying them off the street and they are not prescribed to her. She indicates she is trying to cut down on the amount she takes but was unable to do so and therefore presented for detox. On presentation she denied any symptoms of opiate withdrawal. Her vitals were stable on admission her BMP showed a chronic hyponatremia that was stable and mild CKD which was stable. Her blood sugar was markedly elevated at 413 on admission. Her drug screen was positive for opiates. Her UA shows proteinuria and glucosuria. She did admit that her diabetes was not under good control prior to admission. She was admitted to the medical surgical floor and placed on the buprenorphine taper. Supportive medications were made available. She was seen by [facility] and the desire for outpatient follow-up was noted and an appointment was made for her with [facility] on 06/27/2021 12:30 PM. Throughout her stay we adjusted her insulin to try to attain better blood sugar control. Upon discharge she was given scripts for Lantus pen pens as we had adjusted her basal insulin. No adjustment was made in her bolus insulin. On discharge she was taking 38 units of Lantus twice daily and Humalog 1 14 units 3 times a day prior to meals. We discussed checking her blood sugars and she states she does this without fail. I encouraged her initially to take them in the morning before meals and in the evening with the twice daily dosing of her Lantus. Her blood sugar was much improved prior to discharge. She was recommended to follow-up with her PCP in 1 week and she was given information to follow-up with endocrinology and instructed to call within the next 24 to 48 hours for an appointment within the next month. Discharge diagnoses: Acute opiate withdrawal-resolved Opiate dependence DM-2 uncontrolled Chronic hyponatremia suspected secondary to atypical antipsychotic use Hypothyroidism GERD Bipolar disorder PTSD Tobacco abuse Proteinuria Physical Exam Const alert, oriented x3, no apparent distress, average body habitus and healthy appearing Constitutional Narrative: Upper middle-aged white female sitting up in watching television, appears comfortable and nontoxic General Appearance: cooperative, comfortable, well kempt and well developed Orientation / Consciousness: awake, oriented to person, oriented to place and oriented to time Exam Limitations: no limitations Nutritional Appearance: obese HEENT normocephalic, head/scalp atraumatic and moist oral mucous membranes HEENT Narrative: No thrush noted Eyes PERRL, EOMs intact bilaterally and conjunctivae normal Neck nuchal rigidity, no lymphadenopathy, supple, no JVD and thyroid normal Neck Narrative: Trachea midline, no thyroid enlargement noted General: trachea midline Resp normal respiratory effort, no retractions, no use of accessory muscles and clear to auscultation bilaterally Auscultation: Negative for crackles, rales, rhonchi or wheezes Cardio regular rate, regular rhythm, S1 normal heart sound, S2 normal heart sound, no murmurs, no rub, no gallops, no clicks and no JVD GI normal to inspection, nondistended, normoactive bowel sounds, soft to palpation, non-tender and non-distended Extremity normal to inspection, full ROM and no clubbing, cyanosis or edema Skin no rashes or lesions noted General Skin Exam: no breakdown Neuro oriented x3, moves all extremities and no focal motor deficits Sensorium / Orientation: awake and alert Speech: speech normal Psych thought process normal and affect normal Psych Narrative: Appropriately interactive and very pleasant Weight / BMI Weight Weight: 80.4 kg Body Mass Index (BMI) 34.6 ABG / Lab / Microbiology Data Result Diagrams: 06/23/21 06:15 06/23/21 06:15 Laboratory: Laboratory Results - last 24 hr 06/22/21 12:33: POC Glucose 190 H 06/22/21 17:34: POC Glucose 158 H 06/22/21 21:30: POC Glucose 75 06/23/21 06:15: WBC 9.3, RBC 3.68 L, Hgb 11.2 L, Hct 33.2 L, MCV 90.2, MCH 30.4, MCHC 33.7, RDW Std Deviation 44.3 H, RDW Coeff of Anisa 13.3, Plt Count 190, MPV 9.9, Immature Gran % (Auto) 0.300, Neut % (Auto) 57.2, Lymph % (Auto) 37.0, Hitchcock % (Auto) 3.9, Eos % (Auto) 1.0, Baso % (Auto) 0.6, Absolute Neuts (auto) 5.3, Absolute Lymphs (auto) 3.44, Nucleated RBC % 0 06/23/21 06:15: Sodium 129 L, Potassium 3.3 L, Chloride 92 L, Carbon Dioxide 29.0, Anion Gap 8, BUN 16, Creatinine 1.15 H, Estim Creat Clear Calc 38.77, Est GFR (MDRD) Af Amer 62, Est GFR (MDRD) Non-Af 52 L, BUN/Creatinine Ratio 13.9, Glucose 116 H, Calcium 8.9 06/23/21 07:35: POC Glucose 126 H 06/23/21 11:24: POC Glucose 84 Microbiology: Microbiology 06/20/21 16:17 Nasal Secretion SARS-CoV-2 Antigen (Rapid) - Final D/C Instructions Discharge Diet: Low fat / Low cholesterol and 1800 Calorie Control Diet Discharge Activity: Return to Normal Activity Meaningful Use Info Meaningful Use Diagnoses (Choose all that apply): None applicable Discharge Plan Admission Admit Date/Time: 06/20/21 17:49 Primary Reason for Your Visit: Opiate Detox Attending Provider: Ana Rivera Primary Care Provider: Care Physician,No Primary Instructions Additional Instructions / Restrictions: 1. Check a.m. fasting blood sugar daily and check blood sugar before meals 3 times daily, also consider checking nightly blood sugars at least for the next 48 hours 2. Call for an appointment with endocrinology as soon as possible after discharge 3. Commend follow-up with your PCP in 1 week 4. Addiction plan of care is to follow-up at [facility] after discharge. Appointment is on 06/27/2021 at 12:30 PM Discharge Orders/Prescriptions Prescriptions: New Lantus Solostar U-100 Insulin 100 unit/mL (3 mL) Insulin Pen 38 unit subcut BID Qty: 15 RF: 0 (DME) pen needle,diabetic, disp unit 29 gauge x 1/2 needle See Rx Instructions .ROUTE .MEDSUPPLY Qty: 100 RF: 0 Continued rizatriptan 10 tablet 10 mg PO PRN PRN (Reason: Migraine Symptoms) RF: 0 levothyroxine 125 MCG tablet 175 mcg PO DAILY RF: 0 omeprazole 40 MG capsule,delayed release(DR/EC) 40 mg PO DAILY RF: 0 insulin lispro 100 UNIT/ML insulin pen 14 unit SQ TID RF: 0 quetiapine [Seroquel] 100 mg Tablet 100 mg PO QHS RF: 0 aripiprazole [Abilify] 15 mg Tablet 15 mg PO QHS RF: 0 citalopram [Celexa] 20 mg Tablet 20 mg PO DAILY RF: 0 Discontinued insulin glargine 100 UNIT/ML solution 42 unit SC QHS RF: 0 Referrals / Follow Up: Naif Degroot MD [STAFF PHYSICIAN] - Within 1 Month (call for appt on Wednesday or Wednesday after discharge) Care Physician,No Primary [Primary Care Provider] - Disposition Disposition (needs filled in before D/C Order can be placed): Home, Self Care Charges/Coding Visit Charges Inpatient E&M: 48913 Disch Hosp
--- NOTE | 2021-06-23 12:44 | PCM.DC ---
Discharge Instructions Diet Discharge Diet: Low fat / Low cholesterol and 1800 Calorie Control Diet Follow Up Care Test Results: Test results from this visit will be discussed in further detail at your follow-up appointment, if applicable. Discharge Plan Admission Admit Date/Time: 06/20/21 17:49 Primary Reason for Your Visit: Opiate Detox Attending Provider: Ana Rivera Primary Care Provider: Care Physician,No Primary Instructions Additional Instructions / Restrictions: 1. Check a.m. fasting blood sugar daily and check blood sugar before meals 3 times daily, also consider checking nightly blood sugars at least for the next 48 hours 2. Call for an appointment with endocrinology as soon as possible after discharge 3. Commend follow-up with your PCP in 1 week 4. Addiction plan of care is to follow-up at [facility] after discharge. Appointment is on 06/27/2021 at 12:30 PM Discharge Orders/Prescriptions Prescriptions: New Lantus Solostar U-100 Insulin 100 unit/mL (3 mL) Insulin Pen 38 unit subcut BID Qty: 15 RF: 0 (DME) pen needle,diabetic, disp unit 29 gauge x 1/2 needle See Rx Instructions .ROUTE .MEDSUPPLY Qty: 100 RF: 0 Continued rizatriptan 10 tablet 10 mg PO PRN PRN (Reason: Migraine Symptoms) RF: 0 levothyroxine 125 MCG tablet 175 mcg PO DAILY RF: 0 omeprazole 40 MG capsule,delayed release(DR/EC) 40 mg PO DAILY RF: 0 insulin lispro 100 UNIT/ML insulin pen 14 unit SQ TID RF: 0 quetiapine [Seroquel] 100 mg Tablet 100 mg PO QHS RF: 0 aripiprazole [Abilify] 15 mg Tablet 15 mg PO QHS RF: 0 citalopram [Celexa] 20 mg Tablet 20 mg PO DAILY RF: 0 Discontinued insulin glargine 100 UNIT/ML solution 42 unit SC QHS RF: 0 Referrals / Follow Up: Naif Degroot MD [STAFF PHYSICIAN] - Within 1 Month (call for appt on Wednesday or Wednesday after discharge) Care Physician,No Primary [Primary Care Provider] - Disposition Disposition (needs filled in before D/C Order can be placed): Home, Self Care
[2021-06-23 14:25] LABS: Bedside Glucose 66 mg/dL (70-110)
--- NOTE | 2021-06-23 14:32 | PHA.DC.MR ---
Pharmacy Service has performed discharge medication reconciliation for this patient. The patient's discharge medication list was reviewed for discrepancies and discrepancies were resolved. Home Medications rizatriptan 10 mg PO PRN PRN 12/27/17 levothyroxine 175 mcg PO DAILY 04/05/18 omeprazole 40 mg PO DAILY 03/01/19 insulin lispro 14 unit SQ TID 07/20/19 aripiprazole [Abilify] 15 mg PO QHS 06/20/21 citalopram [Celexa] 20 mg PO DAILY 06/20/21 quetiapine [Seroquel] 100 mg PO QHS 06/20/21 insulin glargine [Lantus Solostar U-100 Insulin] 38 unit SUBCUT BID #15 ml 06/23/21 pen needle,diabetic, disp unit #100 ea 06/23/21
[2021-06-23 14:51] LABS: Bedside Glucose 70 mg/dL (70-110)
--- NOTE | 2021-06-23 15:12 | CHAPLAIN ---
Type of Pastoral Visit _x__ Initial Visit ___ Follow-up Visit ___ On-call Visit ___ General Patient Visit ___ Spiritual Assessment ___ Family Conference ___ Bereavement ___ Rapid Response ___ Code Blue ___ Other (describe below) Pastoral Care Referral From _x__ Patient ___ Family ___ Nurse ___ Physician ___ Business Analysis Specialist ___ Vault Installer ___ Other (describe below) Sacrament/Intervention _x__ Active listening ___ Anointing ___ Temple ___ Bereavement ___ Communion ___ Amanda exploration ___ _x__ Life review _x__ Prayer ___ Reconciliation ___ Sacrament of Sick _x__ Supportive presence ___ Wedding ___ Other (describe below) Pastoral Comments patient states she finally admitted that she needs help and her goal is to be around her grandchildren and in their lives; pt has plan to go with [facility] for support
[2021-06-23 16:16] LABS: Bedside Glucose 78 mg/dL (70-110)
== END 2021-06-23 16:05 | disposition home or self-care (01) | DRG 897 ==
LOC: ED 16:46 → MS3 17:18
PROVIDERS: Admitting Provider Internal Medicine; Emergency Provider Emergency Medicine; Visit Provider Internal Medicine
DX: F11.23 Opioid dependence with withdrawal (principal); E87.1 Hypo-osmolality and hyponatremia; F31.9 Bipolar disorder, unspecified; E78.5 Hyperlipidemia, unspecified; E11.22 Type 2 diabetes mellitus with diabetic chronic kidney disease; E03.9 Hypothyroidism, unspecified; K21.9 Gastro-esophageal reflux disease without esophagitis; F43.10 Post-traumatic stress disorder, unspecified; N18.2 Chronic kidney disease, stage 2 (mild); R80.9 Proteinuria, unspecified; E11.649 Type 2 diabetes mellitus with hypoglycemia without coma; F17.200 Nicotine dependence, unspecified, uncomplicated; I12.9 Hypertensive chronic kidney disease with stage 1 through stage 4 chronic kidney disease, or unspecified chronic kidney disease; G89.29 Other chronic pain; E66.9 Obesity, unspecified; I25.2 Old myocardial infarction; Z79.4 Long term (current) use of insulin; Z79.890 Hormone replacement therapy; Z82.3 Family history of stroke; Z88.0 Allergy status to penicillin; Z88.1 Allergy status to other antibiotic agents; Z88.5 Allergy status to narcotic agent; Z88.6 Allergy status to analgesic agent; Z90.710 Acquired absence of both cervix and uterus; Z68.34 Body mass index [BMI] 34.0-34.9, adult; Z87.442 Personal history of urinary calculi; Z62.810 Personal history of physical and sexual abuse in childhood
CPT/HCPCS: 36415; 80048; 80307; 81001; 82077; 82962; 85025; 87426; 97802; 99283; 99406

== ENCOUNTER 2021-09-27 15:36 | Emergency (ER) | payer MEDICARE, MEDICAID, SELFPAY ==
[2021-09-27 15:38] VITALS: BP 154/80; PULSE 100; RESP 16; TEMP 35.9; O2SAT 100; BMI 28.7
--- NOTE | 2021-09-27 17:46 | EX.ED.DYSGE1 ---
HPI History of Present Illness Chief Complaint: Wound Informant: patient Narrative Narrative: 56-year-old female presents with right foot blister and redness. She has a history of diabetes and diabetic neuropathy. She states that last night she noticed a bqezuqz-zjpa-jla heel ulcer right foot. This morning there is redness. No fevers. 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 [facility] Medical History Back pain Carpal tunnel syndrome Depression Diabetes Fatigue Kidney disease Kidney stones Migraines Opiate abuse, continuous Stomach ulcer Thyroid disease Type II diabetes mellitus, uncontrolled Home Medications rizatriptan 10 mg PO PRN PRN 12/27/17 [History Last Taken Unknown] levothyroxine 175 mcg PO DAILY 04/05/18 [History Last Taken 06/20/21] omeprazole 40 mg PO DAILY 03/01/19 [History Last Taken 06/20/21] insulin lispro 14 unit SQ TID 07/20/19 [History Last Taken 07/21/19 10:00] aripiprazole [Abilify] 15 mg PO QHS 06/20/21 [History Last Taken 06/19/21] citalopram [Celexa] 20 mg PO DAILY 06/20/21 [History Last Taken 06/20/21] quetiapine [Seroquel] 100 mg PO QHS 06/20/21 [History Last Taken 06/19/21] insulin glargine [Lantus Solostar U-100 Insulin] 38 unit SUBCUT BID #15 ml 06/23/21 [Rx Last Taken Unknown] pen needle,diabetic, disp unit #100 ea 06/23/21 [Rx Last Taken Unknown] cephalexin 500 mg PO Q6 #40 capsule 09/27/21 [Rx Last Taken Unknown] Allergy/AdvReac Type Severity Reaction Status Date / Time celecoxib [From Celebrex] Allergy Itching Verified 09/27/21 15:37 ciprofloxacin [From Cipro] Allergy Swelling Verified 09/27/21 15:37 ciprofloxacin HCl Allergy Swelling Verified 09/27/21 15:37 [From Cipro] codeine Allergy Hives Verified 09/27/21 15:37 ibuprofen Allergy Hives Verified 09/27/21 15:37 naproxen Allergy Hives Verified 09/27/21 15:37 Penicillins Allergy Hives Verified 09/27/21 15:37 tramadol HCl [From Ultram] Allergy Hives Verified 09/27/21 15:37 ketorolac [From Toradol] AdvReac Swelling Verified 09/27/21 15:37 Family History Other CVA (cerebral vascular accident) Cancer Diabetes Myocardial infarction Surgical History H/O: hysterectomy Hx of section S/P trigger finger release Social History Smoking Status: Current every day smoker tobacco type: e-cigarettes alcohol intake: never ROS ROS ED Constitutional Constitutional ED: Denies chills, fever(s) or weight loss Eyes Eyes: Denies change in vision or diplopia ENT ENT ED: Denies ear pain, rhinorrhea or sore throat Cardiovascular Cardiovascular: Denies chest pain, orthopnea, palpitations or racing heartbeat Respiratory/Chest Respiratory/Chest: Denies cough, dyspnea or orthopnea Gastrointestinal Gastrointestinal: Denies abdominal pain, diarrhea, nausea or vomiting Genitourinary Genitourinary ED: Denies dysuria, hematuria or urinary frequency Musculoskeletal Musculoskeletal: Denies arthralgias or myalgias Integumentary Reports rash; Denies abscess Neurologic Neurologic: Denies headache(s) or weakness Psychiatric Psychiatric: Denies anxiety, depression, suicidal ideation or suicidal thoughts Endocrine Endocrinology: Denies polydipsia, polyphagia or polyuria Allergic/Immunologic Allergic/Immunologic ED: Denies mouth swelling, tongue swelling or urticaria EXAM Physical Exam Const Vital Signs: 09/27/21 15:38 Temperature 96.6 F L Temperature Source Temporal Pulse Rate 100 Respiratory Rate 16 Blood Pressure 154/80 H Blood Pressure Mean 104 Pulse Ox 100 Oxygen Delivery Method Room Air Positive well nourished and well developed General Appearance ED: well developed HEENT Reports normocephalic, head/scalp atraumatic, TM's clear and moist mucous membranes Negative for trauma Tympanic Membrane ED: Yes TM's clear Eyes PERRL and EOMs intact bilaterally Neck no lymphadenopathy, supple and no JVD Resp normal respiratory effort and clear to auscultation bilaterally Cardio regular rate, regular rhythm and no murmurs GI normal to inspection, nondistended, normoactive bowel sounds and non-tender Palpation: soft Back/Spine no CVA tenderness and normal ROM Extremity Extremity Narrative: Right heel lateral aspect demonstrates about a 3 cm fluctuant purpleish blister with surrounding erythema. There is no lymphangitic streaking. Erythema is around the heel to the medial aspect. There is significant amount of dried skin and onychomycosis General Extremety ED: Negative for edema General Extremity: Negative for edema Neuro oriented x3 and CN's II-XII intact bilaterally Sensorium / Orientation: alert Motor Exam: strength 5/5 throughout Psych mental status grossly normal Mood & Affect: Negative for depressed or tearful Skin no rashes or lesions noted MDM MDM MDM Narrative Medical decision making narrative: Using 18-gauge needle on a syringe I was able to aspirate about 3 cc of fluid. This was sent for culture. Patient was placed on Keflex. I Trish refer her to podiatry return if worsening or concerns Discharge Plan Triage Chief Complaint: Wound ED Provider: Zack Choi Dx/Rx/DC Orders Clinical Impression: Cellulitis in diabetic foot Instructions: ED Cellulitis, ED Diabetic Foot Care Prescriptions: New cephalexin [cephalexin] 500 MG capsule 500 mg PO Q6 Qty: 40 RF: 0 No Action rizatriptan 10 tablet 10 mg PO PRN PRN (Reason: Migraine Symptoms) RF: 0 levothyroxine 125 MCG tablet 175 mcg PO DAILY RF: 0 omeprazole 40 MG capsule,delayed release(DR/EC) 40 mg PO DAILY RF: 0 insulin lispro 100 UNIT/ML insulin pen 14 unit SQ TID RF: 0 quetiapine [Seroquel] 100 mg Tablet 100 mg PO QHS RF: 0 aripiprazole [Abilify] 15 mg Tablet 15 mg PO QHS RF: 0 citalopram [Celexa] 20 mg Tablet 20 mg PO DAILY RF: 0 Lantus Solostar U-100 Insulin 100 unit/mL (3 mL) Insulin Pen 38 unit subcut BID Qty: 15 RF: 0 (DME) pen needle,diabetic, disp unit 29 gauge x 1/2 needle See Rx Instructions .ROUTE .MEDSUPPLY Qty: 100 RF: 0 Primary Care Provider: Care Physician,No Primary Referrals: Rufina Jaimes DPM [STAFF PHYSICIAN] - As soon as possible Care Physician,No Primary [Primary Care Provider] - Disposition Disposition: Home, Self Care
== END 2021-09-27 18:09 | disposition home or self-care (01) ==
PROVIDERS: Emergency Provider Emergency Medicine
DX: E11.628 Type 2 diabetes mellitus with other skin complications (principal); L03.115 Cellulitis of right lower limb; F17.210 Nicotine dependence, cigarettes, uncomplicated; E11.40 Type 2 diabetes mellitus with diabetic neuropathy, unspecified; F11.10 Opioid abuse, uncomplicated; F32.A Depression, unspecified; Z79.1 Long term (current) use of non-steroidal anti-inflammatories (NSAID); Z79.4 Long term (current) use of insulin
CPT/HCPCS: 87070; 87205; 99282

== ENCOUNTER 2022-01-13 14:19 | Emergency (ER) | payer MEDICARE, MEDICAID, SELFPAY ==
[2022-01-13 14:20] VITALS: BP 109/74; PULSE 97; RESP 16; TEMP 36.3; O2SAT 95; BMI 29.7
--- NOTE | 2022-01-13 14:44 | CT_ITS ---
INDICATION: right sided abd pain k-stone vs appy vs other EXAMINATION: CT Abdomen And Pelvis W/ Contrast Injection TECHNIQUE: Helically acquired images were obtained of the abdomen and pelvis after IV contrast. A radiation dose optimization technique was used for this scan. IV Contrast dosage and agent: IV 100mL Isovue-300 Oral contrast: None. COMPARISON: 06/03/2021. FINDINGS: Visualized lung bases: Small pericardial effusion. Liver: Enlarged measuring 20 cm in craniocaudal dimension. Gallbladder: Surgically absent. Spleen: Unremarkable Pancreas: Unremarkable Adrenal Glands: Unremarkable Kidneys: Unremarkable Vasculature: Mild scattered aortoiliac atherosclerotic calcifications. GI Tract: The appendix is normal. Lymphadenopathy: None Peritoneum: No ascites. Bladder: Moderate circumferential bladder wall thickening with minimal surrounding fat stranding. Reproductive organs: Status post hysterectomy. Bones/Soft tissues: Mild scattered degenerative changes of the visualized spine. Small fat-containing umbilical hernia. CT/Abdomen/Pelvis W IV Cont ONLY IMPRESSION: No evidence of renal/ureteral stones or appendicitis. Moderate circumferential bladder wall thickening with minimal surrounding inflammatory changes. Correlate with urinalysis for possible cystitis. Hepatomegaly. Small pericardial effusion. Small fat-containing umbilical hernia Electronically Signed: Chuy Ashton MD at 16:58 EDT ,
--- NOTE | 2022-01-13 14:47 | EDS_ITS ---
HPI History of Present Illness Chief Complaint: General Illness Informant: patient Onset/Context/Timing Onset: Days Context: Gradual Onset Timing: Continuous Current Severity: Mild Maximum Severity: Mild Narrative Narrative: 56-year-old female history of diabetes and prior kidney stone. States that she is out of her insulin. Her primary care physician retired and she has not gotten a new primary care physician. Said her blood sugars have been running high the last several days. Her last dose of insulin was 4 days ago. And her blood sugar today was running 600. Also states that she has numbness in both hands. And right lower abdominal pain. She thinks she might have a kidney stone. Prior similar symptoms: Yes Recent Illness/Hospitalization: No PFSH PFS Medical History Back pain Carpal tunnel syndrome Depression Diabetes Fatigue Kidney disease Kidney stones Migraines Opiate abuse, continuous Stomach ulcer Thyroid disease Type II diabetes mellitus, uncontrolled Home Medications rizatriptan 10 mg PO PRN PRN 12/27/17 [History Last Taken Unknown] levothyroxine 175 mcg PO DAILY 04/05/18 [History Last Taken 06/20/21] omeprazole 40 mg PO DAILY 03/01/19 [History Last Taken 06/20/21] insulin lispro 14 unit SQ TID 07/20/19 [History Last Taken 07/21/19 10:00] aripiprazole [Abilify] 15 mg PO QHS 06/20/21 [History Last Taken 06/19/21] citalopram [Celexa] 20 mg PO DAILY 06/20/21 [History Last Taken 06/20/21] quetiapine [Seroquel] 100 mg PO QHS 06/20/21 [History Last Taken 06/19/21] insulin glargine [Lantus Solostar U-100 Insulin] 38 unit SUBCUT BID #15 ml 06/23/21 [Rx Last Taken Unknown] pen needle,diabetic, disp unit #100 ea 06/23/21 [Rx Last Taken Unknown] cephalexin 500 mg PO Q6 #40 capsule 09/27/21 [Rx Last Taken Unknown] cephalexin 500 mg PO Q6 #40 cap 01/13/22 [Rx Last Taken Unknown] insulin glargine [Lantus Solostar U-100 Insulin] 40 unit SUBCUT DAILY 30 Days #12 ml 01/13/22 [Rx Last Taken Unknown] Allergy/AdvReac Type Severity Reaction Status Date / Time celecoxib [From Celebrex] Allergy Itching Verified 01/13/22 14:22 ciprofloxacin [From Cipro] Allergy Swelling Verified 01/13/22 14:22 ciprofloxacin HCl Allergy Swelling Verified 01/13/22 14:22 [From Cipro] codeine Allergy Hives Verified 01/13/22 14:22 ibuprofen Allergy Hives Verified 01/13/22 14:22 naproxen Allergy Hives Verified 01/13/22 14:22 Penicillins Allergy Hives Verified 01/13/22 14:22 tramadol HCl [From Ultram] Allergy Hives Verified 01/13/22 14:22 ketorolac [From Toradol] AdvReac Swelling Verified 01/13/22 14:22 Family History Other CVA (cerebral vascular accident) Cancer Diabetes Myocardial infarction Surgical History H/O: hysterectomy Hx of section S/P trigger finger release Social History Smoking Status: Current every day smoker tobacco type: e-cigarettes alcohol intake: never ROS ROS ED ROS Narrative Elevated blood sugar. Right-sided abdominal pain. Review of Systems ROS Unobtainable: Denies due to encephalopathy Constitutional Constitutional ED: Denies chills or fever(s) Eyes Eyes: Denies change in vision ENT ENT ED: Denies ear pain or sore throat Cardiovascular Cardiovascular: Denies chest pain or palpitations Respiratory/Chest Respiratory/Chest: Denies cough or dyspnea Gastrointestinal Gastrointestinal: Reports abdominal pain and diarrhea; Denies nausea or vomiting Genitourinary Genitourinary ED: Denies dysuria or hematuria Musculoskeletal Musculoskeletal: Denies arthralgias or myalgias Integumentary Denies rash Neurologic Neurologic: Denies headache(s) Psychiatric Psychiatric: Denies depression Endocrine Endocrinology: Denies polyuria Allergic/Immunologic Allergic/Immunologic ED: Denies urticaria EXAM Physical Exam Narrative Exam Narrative: 13-year-old female no acute distress. Vital signs stable afebrile. Does not look septic or toxic. HEENT exam unremarkable. Moist extremities. Neck nontender. Lungs clear to auscultation bilaterally. Heart regular rhythm no murmur. Abdomen soft nondistended normal bowel sounds no peritoneal signs. Mild tenderness right lower quadrant. No hernia or mass no distention. No pulsatile mass. Moving all 4 extremities. No edema. Neurologically she is awake and alert. Back nontender. Const Vital Signs: 01/13/22 14:20 01/13/22 14:31 Temperature 97.3 F L Temperature Source Temporal Pulse Rate 97 Respiratory Rate 16 Respiratory Effort Normal Respiratory Pattern Normal Blood Pressure 109/74 Blood Pressure Mean 85 Pulse Ox 95 Oxygen Delivery Method Room Air Positive well nourished and well developed; Negative for cachectic, contractures or unkempt General Appearance ED: well developed and NAD; Negative for unkempt, cachectic, contractures, cyanotic, diaphoretic or pallor Nutritional Appearance: Negative for cachectic HEENT Reports moist mucous membranes Negative for trauma or tenderness Eyes PERRL and EOMs intact bilaterally Neck no lymphadenopathy, supple and no JVD General: Negative for tenderness Chest Wall inspection of chest normal and palpation of chest normal Resp normal respiratory effort and clear to auscultation bilaterally Auscultation: Negative for rales, rhonchi or wheezes Cardio regular rate, regular rhythm, S1 normal heart sound, S2 normal heart sound and no murmurs GI normal to inspection, nondistended, normoactive bowel sounds, non-distended and no masses; Negative for non-tender Inspection: Negative for abdominal distention Auscultation: normoactive bowel sounds Palpation: soft and tender; Negative for guarding or rebound tenderness present Back/Spine no CVA tenderness General Back: Negative for CVA tenderness Cervical Spine: Negative for cervical spine tenderness Thoracic Spine / Upper Back: Negative for thoracic spinal tenderness Extremity normal to inspection General Extremety ED: Negative for edema or tenderness General Extremity: Negative for edema Neuro oriented x3 Sensorium / Orientation: alert; Negative for orientation impaired or stuporous Motor Exam: strength 5/5 throughout Psych mental status grossly normal Appearance: Negative for unkempt Mood & Affect: Negative for depressed or tearful Skin no rashes or lesions noted and no wounds General Skin Exam: Negative for jaundice or pallor MDM MDM MDM Narrative Medical decision making narrative: 56-year-old diabetic female that has been out of her insulin for 3 to 4 days and has elevated blood sugar. Also right patient states that she is abdominal pain. She be worked up for rule out DKA. Collection abnormalities and also kidney stone versus diverticulitis versus appendicitis. CAT scan labs are pending. She will be treated with IV fluids, IV morphine and Zofran for pain. Multiple repeat exams patient doing well at 6:58 PM. Abdomen is benign. We went over all of her test results. Urinalysis looks like a UTI. Culture sent. Started on Keflex 4 times a day for 10 days. She also be written a prescription for Lantus and Humalog. Patient was given the KwikPen that was used on the night. Lab Data Attestation: I reviewed the patient's lab results. Lab results narrative: CBC normal white count of 7. H&H 14 and 37. Electrolytes show sodium of 126 gap of 9. BUN of 18 creatinine 1.5. Glucose 496. She is not in DKA her gap is normal and her acetone is negative. Urinalysis shows glucose in the urine. 25-50 white cells. 1+ bacteria. Treat as a UTI. Urine culture sent. CAT scan the abdomen is consistent with a cystitis. No stone seen. Labs: Laboratory Results - last 24 hr 01/13/22 01/13/22 01/13/22 15:02 15:03 15:03 WBC 7.6 RBC 4.55 Hgb 14.0 Hct 37.6 MCV 82.6 MCH 30.8 MCHC 37.2 H RDW Std Deviation 42.2 RDW Coeff of Anisa 14.0 Plt Count 267 MPV 9.8 Immature Gran % (Auto) 0.500 Neut % (Auto) 63.1 Lymph % (Auto) 31.7 Hemphill % (Auto) 4.0 Eos % (Auto) 0.3 Baso % (Auto) 0.4 Absolute Neuts (auto) 4.8 Absolute Lymphs (auto) 2.40 Nucleated RBC % 0 Sodium 126 L Potassium 4.2 Chloride 89 L Carbon Dioxide 28.0 Anion Gap 9 BUN 18 Creatinine 1.57 H Estim Creat Clear Calc 28.06 Est GFR (MDRD) Af Amer 43 L Est GFR (MDRD) Non-Af 36 L BUN/Creatinine Ratio 11.5 Glucose 496 H* Insulin Level Calcium 9.8 Urine Color Urine Clarity Urine pH Ur Specific Humphrey Urine Protein Urine Glucose (UA) Urine Ketones Urine Occult Blood Urine Nitrite Urine Bilirubin Urine Urobilinogen Ur Leukocyte Esterase Urine RBC Urine WBC Ur Squamous Epith Cells Amorphous Sediment Urine Bacteria Urine Mucus Acetone Level POC Glucose 466 H* 01/13/22 01/13/22 01/13/22 15:03 15:03 15:03 WBC RBC Hgb Hct MCV MCH MCHC RDW Std Deviation RDW Coeff of Anisa Plt Count MPV Immature Gran % (Auto) Neut % (Auto) Lymph % (Auto) Hemphill % (Auto) Eos % (Auto) Baso % (Auto) Absolute Neuts (auto) Absolute Lymphs (auto) Nucleated RBC % Sodium Potassium Chloride Carbon Dioxide Anion Gap BUN Creatinine Estim Creat Clear Calc Est GFR (MDRD) Af Amer Est GFR (MDRD) Non-Af BUN/Creatinine Ratio Glucose Insulin Level 32.1 Calcium Urine Color Yellow Urine Clarity Sl. Cloudy Urine pH 5.0 Ur Specific Humphrey 1.015 Urine Protein 30 H Urine Glucose (UA) 1000 H Urine Ketones Negative Urine Occult Blood 10 H Urine Nitrite Negative Urine Bilirubin Negative Urine Urobilinogen Normal Ur Leukocyte Esterase 500 H Urine RBC 0-5 SEEN Urine WBC 25-50 SEEN Ur Squamous Epith Cells 0-5 SEEN Amorphous Sediment 1+ URATE Urine Bacteria 0 SEEN Urine Mucus 0 SEEN Acetone Level NEGATIVE POC Glucose 01/13/22 16:40 WBC RBC Hgb Hct MCV MCH MCHC RDW Std Deviation RDW Coeff of Anisa Plt Count MPV Immature Gran % (Auto) Neut % (Auto) Lymph % (Auto) Hemphill % (Auto) Eos % (Auto) Baso % (Auto) Absolute Neuts (auto) Absolute Lymphs (auto) Nucleated RBC % Sodium Potassium Chloride Carbon Dioxide Anion Gap BUN Creatinine Estim Creat Clear Calc Est GFR (MDRD) Af Amer Est GFR (MDRD) Non-Af BUN/Creatinine Ratio Glucose Insulin Level Calcium Urine Color Urine Clarity Urine pH Ur Specific Humphrey Urine Protein Urine Glucose (UA) Urine Ketones Urine Occult Blood Urine Nitrite Urine Bilirubin Urine Urobilinogen Ur Leukocyte Esterase Urine RBC Urine WBC Ur Squamous Epith Cells Amorphous Sediment Urine Bacteria Urine Mucus Acetone Level POC Glucose 361 H Radiography Diagnostic Testing: Clinical Impression(s) from Imaging Studies Abdomen/Pelvis CT 01/13/22 14:44 IMPRESSION: No evidence of renal/ureteral stones or appendicitis. Moderate circumferential bladder wall thickening with minimal surrounding inflammatory changes. Correlate with urinalysis for possible cystitis. Hepatomegaly. Small pericardial effusion. Small fat-containing umbilical hernia Electronically Signed: Chuy Ashton MD at 16:58 EDT , Discharge Plan Triage Chief Complaint: General Illness ED Provider: Bronson Retana Dx/Rx/DC Orders Clinical Impression: Hyperglycemia due to diabetes mellitus, UTI (urinary tract infection), Acute hyponatremia Instructions: High Blood Sugar (Hyperglycemia), ED CYSTITIS Female Adult Prescriptions: New cephalexin 500 mg capsule 500 mg PO Q6 Qty: 40 RF: 0 Lantus Solostar U-100 Insulin 100 unit/mL (3 mL) insulin pen 40 unit subcut DAILY 30 Days Qty: 12 RF: 0 No Action rizatriptan 10 tablet 10 mg PO PRN PRN (Reason: Migraine Symptoms) RF: 0 levothyroxine 125 MCG tablet 175 mcg PO DAILY RF: 0 omeprazole 40 MG capsule,delayed release(DR/EC) 40 mg PO DAILY RF: 0 insulin lispro 100 UNIT/ML insulin pen 14 unit SQ TID RF: 0 quetiapine [Seroquel] 100 mg Tablet 100 mg PO QHS RF: 0 aripiprazole [Abilify] 15 mg Tablet 15 mg PO QHS RF: 0 citalopram [Celexa] 20 mg Tablet 20 mg PO DAILY RF: 0 Lantus Solostar U-100 Insulin 100 unit/mL (3 mL) Insulin Pen 38 unit subcut BID Qty: 15 RF: 0 (DME) pen needle,diabetic, disp unit 29 gauge x 1/2 needle See Rx Instructions .ROUTE .MEDSUPPLY Qty: 100 RF: 0 cephalexin [cephalexin] 500 MG capsule 500 mg PO Q6 Qty: 40 RF: 0 Primary Care Provider: Care Physician,No Primary Referrals: Kala Finley MD [STAFF PHYSICIAN] - As soon as possible Care Physician,No Primary [Primary Care Provider] - Activity Restrictions/Additional Instructions: Patient watch her blood sugars very closely. I wrote your prescription for both your Lantus at night. And Humalog. Follow-up with the [facility] in [place] [facility] primary care physician soon as possible. You also have a urinary tract infection. A urine culture was sent. We will start you on antibiotic Keflex 1 pill 4 times a day for 10 days. Follow-up to get a new primary care physician or return emergency room if feeling worse. Disposition Disposition: Home, Self Care
[2022-01-13] MEDS: morphine 8 MG/ML Syringe 6 MG IV (15:04)
[2022-01-13] MEDS: Ondansetron 4 MG/2 ML Vial IV (15:04)
[2022-01-13] MEDS: 0.9% Normal Saline 1,000 ML 999 ML IV (15:06)
[2022-01-13 15:10] LABS: Bacteria 0 SEEN /hpf (None Seen); Mucous, Urine 0 SEEN /hpf (<or=2+)
[2022-01-13 15:11] LABS: Bedside Glucose 466 mg/dL (74-106)
[2022-01-13 15:18] LABS: Absolute Neutrophil Count 4.8 X10^3/uL (2.0-7.7); Basophil# 0.03 X10^3/uL; Basophil% 0.4 % (0-1); Eosinophil# 0.02 X10^3/uL; Eosinophils% 0.3 % (0-5); Hematocrit 37.6 % (37-47); Lymphocyte % 31.7 % (19-41); Mean Corp Hgb Conc 37.2 g/dL (32-36); Mean Corpuscular Hgb 30.8 pg (27.0-32.0); Mean Corpuscular Volume 82.6 fL (81-99); Mean Platelet Vol. 9.8 fl (6.2-12.0); NRBC Flagged by Analyzer 0 % (0-5); Neutrophil # 4.79 X10^3/uL (2.7-7.7); Neutrophil % 63.1 % (47-70); Platelet Count 267 K/mm3 (150-450); RBC Distribution Width SD 42.2 fl (35.1-43.9); Red Blood Count 4.55 M/mm3 (4.2-5.4); White Blood Count 7.6 K/mm3 (4.4-11.0)
[2022-01-13 15:27] LABS: Color, Urine Yellow (Yellow); Glucose, Dipstick 1000 mg/dl (Normal); Ketone-Dipstick Negative (Negative); Leukocyte Esterase-Dipstick 500 /ul (Negative); Nitrite-Dipstick Negative (Negative); Occult Blood-Urine 10 /ul (Negative); Protein-Dipstick 30 mg/dl (Negative); Specific Gravity, Urine 1.015 (1.002-1.030); Urine Bilirubin Dipstick Negative (Negative); Urine Clarity Sl. Cloudy (Clear); Urine Urobilinogen Normal (Normal)
[2022-01-13 15:38] LABS: Anion Gap 9 (5-15); BUN 18 mg/dL (7-18); BUN/Creat Ratio 11.5 RATIO (10-20); Calcium,Total 9.8 mg/dL (8.5-10.1); Chloride 89 mmol/L (98-107); Creatinine, Serum 1.57 mg/dL (0.55-1.02); EST Glomerular Filtration Rate 36 mL/min (>60); Est Glom Filt Rate - Afr Amer 43 mL/min (>60); Estimated Creatinine Clearance 28.06 ml/min; Glucose 496 mg/dL (74-106); Potassium 4.2 mmol/L (3.5-5.1); Sodium Level 126 mmol/L (136-145)
[2022-01-13 16:01] LABS: Amorphous Sediment 1+ URATE; Red Blood Cells-Urine 0-5 SEEN /hpf (0-5); Squamous Epithelial Cells - UA 0-5 SEEN /hpf (5-10); White Blood Cells 25-50 SEEN /hpf (0-5)
[2022-01-13] MEDS: Insulin Lispro 100 UNIT/ML INSULN.PEN 14 UNIT SC (16:03)
[2022-01-13 16:28] LABS: Insulin 32.1 mU/L (2.6-37.6)
[2022-01-13 16:46] LABS: Bedside Glucose 361 mg/dL (74-106)
[2022-01-13 19:41] VITALS: BP 95/70; PULSE 74; RESP 17; O2SAT 97
== END 2022-01-13 19:58 | disposition home or self-care (01) ==
PROVIDERS: Emergency Provider Emergency Medicine; Visit Provider Emergency Medicine
DX: E11.65 Type 2 diabetes mellitus with hyperglycemia (principal); Z79.4 Long term (current) use of insulin; N39.0 Urinary tract infection, site not specified; E87.1 Hypo-osmolality and hyponatremia; F17.290 Nicotine dependence, other tobacco product, uncomplicated
CPT/HCPCS: 74177; 80048; 81001; 82009; 82962; 83525; 85025; 87086; 87088; 96361; 96374; 96375; 99284; J7030; Q9967; A4216; J2405

== ENCOUNTER 2022-02-24 13:01 | Emergency (ER) | payer MEDICARE, MEDICAID, SELFPAY ==
[2022-02-24 13:02] VITALS: BP 130/82; PULSE 103; RESP 18; TEMP 36.4; O2SAT 100; BMI 29.7
--- NOTE | 2022-02-24 13:18 | ED.RN ---
Pt reports she was here recently with same problem and has not been able to get in with her PCP. States continues to have numbness & tingling in b/l legs and also reports her hands are cold. [facility] PCP nurse told her to come to ER.
--- NOTE | 2022-02-24 13:56 | MRI_ITS ---
STUDY: MRI LUMBAR SPINE WITH AND WITHOUT CONTRAST REASON FOR EXAM: Female, 56 years old. pain, weakness/numbness BLE TECHNIQUE: Standardized fat and water weighted pulse sequences were obtained in the sagittal and axial planes. 14 ml DOtarem via IV was administered for the contrast portion of the examination. COMPARISON: 03/15/2019. FINDINGS: No demonstrated fracture. Vertebral bodies are normal in height. T12-L1: Normal disc height and morphology. Normal bilateral facet joints. Normal central canal. Normal bilateral lateral recesses. Normal intervertebral neural foramina. L1-2: Normal disc height and morphology. Normal bilateral facet joints. Normal central canal. Normal bilateral lateral recesses. Normal intervertebral neural foramina. L2-3: Disc dehydration and mild disc space narrowing. Normal bilateral facet joints. Normal central canal. Normal bilateral lateral recesses. Mild left foraminal encroachment due to spurring. L3-4: Disc dehydration. Normal bilateral facet joints. Normal central canal. Normal bilateral lateral recesses. Normal intervertebral neural foramina. L4-5: Marked disc space narrowing. Mild, noncompressive spondylotic bar. Normal bilateral facet joints. No canal stenosis. Normal bilateral lateral recesses. Mild foraminal encroachment due to spurring. L5-S1: Disc dehydration.. Mild facet hypertrophy. Normal central canal. Normal bilateral lateral recesses. Normal intervertebral neural foramina. No intracanalicular enhancing lesion. Normal visualized sacral ala. Mild edema and enhancement of the L3-4 interspinous ligament. MRI/Spine Lumbar W/WO Contrast IMPRESSION: Findings consistent with L3-4 interspinous ligament strain. No compressive disc disease, canal or high-grade foraminal stenosis. Mild degenerative changes detailed above. Electronically Signed: Mary Ellen Omalley MD at 16:55 EDT Reading Location ID and State: [id number] / Tel , Service support ,
--- NOTE | 2022-02-24 13:56 | MRI_ITS ---
STUDY: MRI THORACIC SPINE WITH AND WITHOUT CONTRAST REASON FOR EXAM: Female, 56 years old. pain, weakness/numbness BLE TECHNIQUE: IV 14ml Dotarem was administered for the contrast portion of the examination. COMPARISON: None. FINDINGS: Normal kyphosis of the thoracic spine. There is no substantial scoliosis. T1-2, T2-3, T3-4, T4-5, T5-6, T6-7, T7-8, T8-9, T9-10, T10-11, T11-12: Normal endplates. Normal disc hydration, heights and morphology of the corresponding intervertebral discs. Normal central canal and intervertebral neural foramina at the corresponding levels. Normal visualized thoracic cord. Normal conus medullaris that terminates at the . The soft tissue structures are unremarkable. There is no enhancing abnormality. MRI/Spine Thoracic W/WO Contrast IMPRESSION: Normal unenhanced and enhanced MRI examination of the thoracic spine. Electronically Signed: Mary Ellen Omalley MD at 16:41 EDT Reading Location ID and State: [id number] / Tel , Service support ,
--- NOTE | 2022-02-24 14:04 | EX.ED.DYSGE1 ---
HPI <Dr. Adebayo Camp MD - Last Filed: 02/24/22 16:27> History of Present Illness Chief Complaint: Numb/Ting Informant: patient Onset/Context/Timing Onset: Weeks (2) Context: Gradual Onset Timing: Continuous Quality: back pain, numbness and weakness BLE Current Severity: Severe Maximum Severity: Severe Worsened by: trying to walk Relieved by: nothing Associated Symptoms Associated Symptoms: right abd pain Narrative Narrative: 2 weeks ago patient started having abdominal pain, she has chronic back pain. No neurologic symptoms. Had a CT of the abdomen/pelvis here, showed nothing acute except there were findings that would be consistent with cystitis, her urine showed pyuria and she was treated for this. She is still having abdominal pain. Additionally over the past 2 weeks she states that she has developed numbness in her lower extremities and it has progressively become worse to the point now where she is also weak and having trouble walking around. She is not able to stand without significant assistance from her . She states she has never had this before. She denies any bowel or bladder dysfunction. She does states she has had some mild diarrhea, no vomiting, no hematochezia or melanotic stools. No saddle anesthesia specifically. PFS <Dr. Adebayo Camp MD - Last Filed: 02/24/22 16:27> [facility] Medical History Back pain Carpal tunnel syndrome Depression Diabetes Fatigue Kidney disease Kidney stones Migraines Opiate abuse, continuous Stomach ulcer Thyroid disease Type II diabetes mellitus, uncontrolled Home Medications rizatriptan 10 mg PO PRN PRN 12/27/17 [History Last Taken Unknown] levothyroxine 175 mcg PO DAILY 04/05/18 [History Last Taken 06/20/21] omeprazole 40 mg PO DAILY 03/01/19 [History Last Taken 06/20/21] insulin lispro 14 unit SQ TID 07/20/19 [History Last Taken 07/21/19 10:00] aripiprazole [Abilify] 15 mg PO QHS 06/20/21 [History Last Taken 06/19/21] citalopram [Celexa] 20 mg PO DAILY 06/20/21 [History Last Taken 06/20/21] quetiapine [Seroquel] 100 mg PO QHS 06/20/21 [History Last Taken 06/19/21] insulin glargine [Lantus Solostar U-100 Insulin] 38 unit SUBCUT BID #15 ml 06/23/21 [Rx Last Taken Unknown] pen needle,diabetic, disp unit #100 ea 06/23/21 [Rx Last Taken Unknown] cephalexin 500 mg PO Q6 #40 capsule 09/27/21 [Rx Last Taken Unknown] cephalexin 500 mg PO Q6 #40 cap 01/13/22 [Rx Last Taken Unknown] insulin glargine [Lantus Solostar U-100 Insulin] 40 unit SUBCUT DAILY 30 Days #12 ml 01/13/22 [Rx Last Taken Unknown] insulin lispro [Humalog KwikPen Insulin] 1 sliding scale dose SUBCUT TID 30 Days ml 01/13/22 [Rx Last Taken Unknown] Allergy/AdvReac Type Severity Reaction Status Date / Time celecoxib [From Celebrex] Allergy Itching Verified 02/24/22 13:05 ciprofloxacin [From Cipro] Allergy Swelling Verified 02/24/22 13:05 ciprofloxacin HCl Allergy Swelling Verified 02/24/22 13:05 [From Cipro] codeine Allergy Hives Verified 02/24/22 13:05 ibuprofen Allergy Hives Verified 02/24/22 13:05 naproxen Allergy Hives Verified 02/24/22 13:05 Penicillins Allergy Hives Verified 02/24/22 13:05 tramadol HCl [From Ultram] Allergy Hives Verified 02/24/22 13:05 ketorolac [From Toradol] AdvReac Swelling Verified 02/24/22 13:05 Family History Other CVA (cerebral vascular accident) Cancer Diabetes Myocardial infarction Surgical History H/O: hysterectomy Hx of section S/P trigger finger release Social History Smoking Status: Former smoker alcohol intake: never ROS <Dr. Adebayo Camp MD - Last Filed: 02/24/22 16:27> ROS ED Constitutional Constitutional ED: Denies chills or fever(s) Eyes Eyes: Denies change in vision or diplopia ENT ENT ED: Denies rhinorrhea or sore throat Cardiovascular Cardiovascular: Denies chest pain or palpitations Respiratory/Chest Respiratory/Chest: Denies cough or dyspnea Gastrointestinal Gastrointestinal: Reports abdominal pain and diarrhea; Denies constipation, fecal incontinence, nausea or vomiting Genitourinary Genitourinary ED: Reports other Details: no urinary retention ; Denies abdominal discomfort or urinary incontinence Musculoskeletal Musculoskeletal: Reports as per HPI and back pain; Denies neck pain Integumentary Denies rash or wounds Neurologic Neurologic: Reports abnormal gait, paresthesias and weakness; Denies headache(s) Psychiatric Psychiatric: Denies anxiety or suicidal thoughts EXAM <Dr. Adebayo Camp MD - Last Filed: 02/24/22 16:27> Physical Exam Const Vital Signs: 02/24/22 13:02 02/24/22 14:59 02/24/22 15:13 Temperature 97.6 F L Temperature Source Temporal Pulse Rate 103 H 83 Respiratory Rate 18 33 H 24 H Blood Pressure 130/82 H 131/76 H 121/70 H Blood Pressure Mean 98 94 87 Blood Pressure Source Monitor Monitor Blood Pressure Position Semi-Fowlers Semi-Fowlers Blood Pressure Location Right Arm Right Arm Pulse Ox 100 96 92 Oxygen Delivery Method Room Air Room Air Room Air 02/24/22 15:26 02/24/22 15:40 02/24/22 16:22 Temperature Temperature Source Pulse Rate 72 78 84 Respiratory Rate 16 Blood Pressure 108/60 108/60 Blood Pressure Mean 76 76 Blood Pressure Source Monitor Monitor Blood Pressure Position Supine Supine Blood Pressure Location Right Arm Right Arm Pulse Ox 92 93 97 Oxygen Delivery Method Room Air Room Air Room Air Positive well nourished and well developed General Appearance ED: well developed and NAD HEENT Reports moist mucous membranes Negative for trauma or tenderness Eyes PERRL and EOMs intact bilaterally Neck full ROM and supple Resp normal respiratory effort and clear to auscultation bilaterally Cardio regular rate, regular rhythm and no murmurs GI normal to inspection, nondistended, normoactive bowel sounds and soft to palpation GI Narrative: Tender throughout the right side without guarding or rebound Auscultation: normoactive bowel sounds Palpation: soft Back/Spine normal to inspection General Back: other FROM Thoracic Spine / Upper Back: paraspinal muscle tenderness Lumbar Spine / Lower Back: ROM limited and straight leg raise negative bilaterally Extremity normal to inspection, full ROM and no pedal edema General Extremety ED: Negative for edema, pulses abnormal or tenderness General Extremity: Negative for edema or pulses abnormal Neuro oriented x3 Neuro Narrative: Partial sensory deficit from around the umbilicus down, symmetric bilaterally Sensorium / Orientation: alert Speech: speech normal Motor Exam: strength abnormal other (Able to hold both legs up but they drift, do not at the bed, before 5 seconds. Good strength bilateral upper extremities 5/5.) and clonus absent Deep Tendon Reflexes: Rt Biceps (C5, C6): 1+, Lt Biceps (C5, C6): 1+, Rt Patellar (L4): 0, Lt Patellar (L4): 0, Rt Ankle (S1): 0 and Lt Ankle (S1): 0 Deep Tendon Reflexes Back: Rt Patellar (L4): 0, Lt Patellar (L4): 0, Rt Ankle (S1): 0 and Lt Ankle (S1): 0 Plantar Reflex: Equivocal: bilateral Psych mental status grossly normal and thought process normal Skin no rashes or lesions noted and no wounds <Dr. Bronson Retana MD - Last Filed: 02/24/22 17:35> Physical Exam Const Vital Signs: 02/24/22 13:02 02/24/22 14:59 02/24/22 15:13 Temperature 97.6 F L Temperature Source Temporal Pulse Rate 103 H 83 Respiratory Rate 18 33 H 24 H Blood Pressure 130/82 H 131/76 H 121/70 H Blood Pressure Mean 98 94 87 Blood Pressure Source Monitor Monitor Blood Pressure Position Semi-Fowlers Semi-Fowlers Blood Pressure Location Right Arm Right Arm Pulse Ox 100 96 92 Oxygen Delivery Method Room Air Room Air Room Air 02/24/22 15:26 02/24/22 15:40 02/24/22 16:22 Temperature Temperature Source Pulse Rate 72 78 84 Respiratory Rate 16 Blood Pressure 108/60 108/60 Blood Pressure Mean 76 76 Blood Pressure Source Monitor Monitor Blood Pressure Position Supine Supine Blood Pressure Location Right Arm Right Arm Pulse Ox 92 93 97 Oxygen Delivery Method Room Air Room Air Room Air MDM <Dr. Adebayo Camp MD - Last Filed: 02/24/22 16:27> [facility] MDM Narrative Medical decision making narrative: Her CT showed nothing acute and her back when she had it 2 weeks ago. My concern is that she has acute exacerbation of her chronic low back pain without an injury and she is having new acute neurologic symptoms to the point where she cannot walk and she has symmetric dorsalis pedis pulses with good blood flow and no pulsatile mass in her abdomen. The best next test would be MRI of her back. Her sensory level was approximately T8-T9, so thoracic and lumbar spine would need to be imaged with and without contrast would give us the best coverage of the differential which includes cord compression and discitis. I discussed with MRI and they were able to fit her in for this study, and it was obtained with the patient states she has severe claustrophobia and required Ativan prior to going. At this time, results of these MRIs are pending and patient is checked out to the oncoming EP. Of note, this patient has a care plan with the hospital with regards to treating her chronic back pain. Additionally, she has significant hyperglycemia at 569, which we treated with insulin after she returned from MRI. That will be rechecked. MRI in 2019 shows a history of L2-3 and L4-5 disc disease, she has had facet injections for those in the past but never had surgery. Lab Data Attestation: I reviewed the patient's lab results. Labs: Laboratory Results - last 24 hr 02/24/22 02/24/22 02/24/22 14:15 14:15 16:23 WBC 6.3 RBC 4.08 L Hgb 12.7 Hct 35.9 L MCV 88.0 MCH 31.1 MCHC 35.4 RDW Std Deviation 44.8 H RDW Coeff of Anisa 14.0 Plt Count 231 MPV 9.7 Immature Gran % (Auto) 0.800 Neut % (Auto) 62.4 Lymph % (Auto) 31.4 [place] % (Auto) 4.4 Eos % (Auto) 0.2 Baso % (Auto) 0.8 Absolute Neuts (auto) 3.9 Absolute Lymphs (auto) 1.98 Nucleated RBC % 0 Sodium 127 L Potassium 3.8 Chloride 87 L Carbon Dioxide 27.0 Anion Gap 13 BUN 12 Creatinine 1.48 H Estim Creat Clear Calc 29.76 Est GFR (MDRD) Af Amer 47 L Est GFR (MDRD) Non-Af 38 L BUN/Creatinine Ratio 8.1 L Glucose 569 H* Calcium 8.3 L Total Bilirubin 0.50 AST 45 H ALT 56 Alkaline Phosphatase 93 Total Protein 7.6 Albumin 3.6 Globulin 4.0 Albumin/Globulin Ratio 0.9 POC Glucose 492 H* Radiography Diagnostic Testing: Clinical Impression(s) from Imaging Studies Lumbar Spine MRI 02/24/22 13:56 IMPRESSION: Findings consistent with L3-4 interspinous ligament strain. No compressive disc disease, canal or high-grade foraminal stenosis. Mild degenerative changes detailed above. Electronically Signed: Mary Ellen Omalley MD at 16:55 EDT Reading Location ID and State: [id number] / Tel , Service support , Thoracic Spine MRI 02/24/22 13:56 IMPRESSION: Normal unenhanced and enhanced MRI examination of the thoracic spine. Electronically Signed: Mary Ellen Omalley MD at 16:41 EDT Reading Location ID and State: [id number] / Tel , Service support , <Dr. Bronson Retana MD - Last Filed: 02/24/22 17:35> MDM MDM Narrative Medical decision making narrative: Patient checked out to me by the morning physician Dr. Addison Camp. The MRI of her thoracic and lumbar spine shows no acute process of the thoracic spine. Disc disease of L3-L4 but no cord compression. Patient's initial blood sugar was elevated at 492. Her initial treating physician had her treated with a dose of subcu insulin. Her blood sugar will be rechecked. Repeat exam she is doing well at 5:28 PM. She will be discharged home with outpatient follow-up. Blood sugar will be rechecked prior to discharge. Lab Data Labs: Laboratory Results - last 24 hr 02/24/22 02/24/22 02/24/22 14:15 14:15 16:23 WBC 6.3 RBC 4.08 L Hgb 12.7 Hct 35.9 L MCV 88.0 MCH 31.1 MCHC 35.4 RDW Std Deviation 44.8 H RDW Coeff of Anisa 14.0 Plt Count 231 MPV 9.7 Immature Gran % (Auto) 0.800 Neut % (Auto) 62.4 Lymph % (Auto) 31.4 [place] % (Auto) 4.4 Eos % (Auto) 0.2 Baso % (Auto) 0.8 Absolute Neuts (auto) 3.9 Absolute Lymphs (auto) 1.98 Nucleated RBC % 0 Sodium 127 L Potassium 3.8 Chloride 87 L Carbon Dioxide 27.0 Anion Gap 13 BUN 12 Creatinine 1.48 H Estim Creat Clear Calc 29.76 Est GFR (MDRD) Af Amer 47 L Est GFR (MDRD) Non-Af 38 L BUN/Creatinine Ratio 8.1 L Glucose 569 H* Calcium 8.3 L Total Bilirubin 0.50 AST 45 H ALT 56 Alkaline Phosphatase 93 Total Protein 7.6 Albumin 3.6 Globulin 4.0 Albumin/Globulin Ratio 0.9 POC Glucose 492 H* Radiography Diagnostic Testing: Clinical Impression(s) from Imaging Studies Lumbar Spine MRI 02/24/22 13:56 IMPRESSION: Findings consistent with L3-4 interspinous ligament strain. No compressive disc disease, canal or high-grade foraminal stenosis. Mild degenerative changes detailed above. Electronically Signed: Mary Ellen Omalley MD at 16:55 EDT Reading Location ID and State: Bianca Longoria MD Tel , Service support , Thoracic Spine MRI 02/24/22 13:56 IMPRESSION: Normal unenhanced and enhanced MRI examination of the thoracic spine. Electronically Signed: Mary Ellen Omalley MD at 16:41 EDT Reading Location ID and State: Bianca Longoria MD Tel , Service support , Discharge Plan Triage Chief Complaint: Numb/Ting ED Provider: Adebayo Camp Dx/Rx/DC Orders Clinical Impression: Acute exacerbation of chronic low back pain, Right sided abdominal pain, Bilateral leg paresthesia, Hyperglycemia due to diabetes mellitus Prescriptions: No Action rizatriptan 10 tablet 10 mg PO PRN PRN (Reason: Migraine Symptoms) RF: 0 levothyroxine 125 MCG tablet 175 mcg PO DAILY RF: 0 omeprazole 40 MG capsule,delayed release(DR/EC) 40 mg PO DAILY RF: 0 insulin lispro 100 UNIT/ML insulin pen 14 unit SQ TID RF: 0 quetiapine [Seroquel] 100 mg Tablet 100 mg PO QHS RF: 0 aripiprazole [Abilify] 15 mg Tablet 15 mg PO QHS RF: 0 citalopram [Celexa] 20 mg Tablet 20 mg PO DAILY RF: 0 Lantus Solostar U-100 Insulin 100 unit/mL (3 mL) Insulin Pen 38 unit subcut BID Qty: 15 RF: 0 (DME) pen needle,diabetic, disp unit 29 gauge x 1/2 needle See Rx Instructions .ROUTE .MEDSUPPLY Qty: 100 RF: 0 cephalexin [cephalexin] 500 MG capsule 500 mg PO Q6 Qty: 40 RF: 0 cephalexin 500 mg capsule 500 mg PO Q6 Qty: 40 RF: 0 Lantus Solostar U-100 Insulin 100 unit/mL (3 mL) insulin pen 40 unit subcut DAILY 30 Days Qty: 12 RF: 0 insulin lispro [Humalog KwikPen Insulin] 100 unit/mL insulin pen 1 sliding scale dose subcut TID 30 Days RF: 0 Primary Care Provider: Jarred Lopez Referrals: Jarred Lopez MD [Primary Care Provider] - 1 Week if not improving Activity Restrictions/Additional Instructions: Your MRI today showed some mild disc disease of L3 and L4. The thoracic spine was fine. There is no compression of your spinal cord. Nothing needs to be done acutely. Motrin and Tylenol for pain. Follow-up with your primary care physician. Disposition Disposition: Home, Self Care
[2022-02-24 14:21] LABS: Absolute Lymphocyte Count 1.98 X10^3/uL (0.83-4.51); Absolute Neutrophil Count 3.9 X10^3/uL (2.0-7.7); Basophil# 0.05 X10^3/uL; Basophil% 0.8 % (0-1); Eosinophil# 0.01 X10^3/uL; Eosinophils% 0.2 % (0-5); Hematocrit 35.9 % (37-47); Hemoglobin 12.7 g/dL (12.0-15.0); Lymphocyte # 1.98 X10^3/ul (0.83-4.51); Lymphocyte % 31.4 % (19-41); Mean Corp Hgb Conc 35.4 g/dL (32-36); Mean Corpuscular Hgb 31.1 pg (27.0-32.0); Mean Platelet Vol. 9.7 fl (6.2-12.0); Monocyte# 0.28 X10^3/uL; Monocyte% 4.4 % (0-10); NRBC Flagged by Analyzer 0 % (0-5); Neutrophil # 3.94 X10^3/uL (2.7-7.7); Neutrophil % 62.4 % (47-70); Platelet Count 231 K/mm3 (150-450); RBC Distribution Width SD 44.8 fl (35.1-43.9); Red Blood Count 4.08 M/mm3 (4.2-5.4); White Blood Count 6.3 K/mm3 (4.4-11.0)
[2022-02-24] MEDS: LORazepam 2 MG/ML Syringe IV (14:33)
[2022-02-24 14:41] LABS: ALB/GLOB Ratio 0.9 RATIO (0.9-2.4); AST(SGOT) 45 U/L (15-37); Alanine Aminotransfer ALT/SGPT 56 U/L (13-56); Albumin, Serum 3.6 g/dL (3.2-5.0); Alkaline Phosphatase 93 U/L (45-117); Anion Gap 13 (5-15); BUN 12 mg/dL (7-18); BUN/Creat Ratio 8.1 RATIO (10-20); Calcium,Total 8.3 mg/dL (8.5-10.1); Chloride 87 mmol/L (98-107); Creatinine, Serum 1.48 mg/dL (0.55-1.02); EST Glomerular Filtration Rate 38 mL/min (>60); Est Glom Filt Rate - Afr Amer 47 mL/min (>60); Estimated Creatinine Clearance 29.76 ml/min; Glucose 569 mg/dL (74-106); Potassium 3.8 mmol/L (3.5-5.1); Protein, Total 7.6 g/dL (6.4-8.2); Sodium Level 127 mmol/L (136-145)
[2022-02-24 14:59] VITALS: BP 131/76; PULSE 83; RESP 33; O2SAT 96
[2022-02-24 15:13] VITALS: BP 121/70; RESP 24; O2SAT 92
[2022-02-24 15:26] VITALS: BP 108/60; PULSE 72; O2SAT 92
[2022-02-24 15:40] VITALS: BP 108/60; PULSE 78; O2SAT 93
--- NOTE | 2022-02-24 15:45 | CM.ED ---
SW Note SW updated MD that patient has a care plan. Magali ERVIN
[2022-02-24 16:22] VITALS: PULSE 84; RESP 16; O2SAT 97
[2022-02-24] MEDS: Insulin Lispro 100 UNIT/ML INSULN.PEN 14 UNIT SC (16:23)
[2022-02-24 16:30] LABS: Bedside Glucose 492 mg/dL (74-106)
[2022-02-24 17:51] LABS: Bedside Glucose 407 mg/dL (74-106)
== END 2022-02-24 18:29 | disposition home or self-care (01) ==
PROVIDERS: Emergency Provider Emergency Medicine; PCP Family Medicine; Visit Provider Emergency Medicine
DX: M54.50 Low back pain, unspecified (principal); E11.65 Type 2 diabetes mellitus with hyperglycemia; G89.29 Other chronic pain; R20.2 Paresthesia of skin; Z87.891 Personal history of nicotine dependence; R82.81 Pyuria; M62.81 Muscle weakness (generalized)
CPT/HCPCS: 72157; 72158; 80053; 82962; 85025; 99283; A9575; A4216

== ENCOUNTER 2022-03-20 15:39 | Observation (INO) | payer MEDICARE, MEDICAID, SELFPAY ==
[2022-03-20 15:40] VITALS: BP 137/92; PULSE 94; RESP 18; TEMP 36.6; O2SAT 98; BMI 31.2
--- NOTE | 2022-03-20 16:42 | ED.VIS.BACK ---
HPI History of Present Illness Chief Complaint: Lower Extremity Injury Narrative Narrative: 56-year-old female presenting with acute exacerbation of chronic back pain and stating that her lower extremities are feeling weaker. She states she does not ambulate with a cane or walker but is having difficulty getting around. She complains of contusions to the bilateral upper extremities from falling into hazel and other surrounding objects. She has not fallen and hit her head. Patient was seen in the emergency room previously for this and had a CT performed as well as MRI of the thoracic and lumbar spine. The MRI showed an L3-L4 interspinous ligamentous strain with degenerative changes. Patient states he has been home and progressively getting worse. She is here today because she states her is at his limit of how much he can help her. Patient requests shelter. [facility] Medical History Back pain Carpal tunnel syndrome Depression Diabetes Fatigue Kidney disease Kidney stones Migraines Opiate abuse, continuous Stomach ulcer Thyroid disease Type II diabetes mellitus, uncontrolled Home Medications rizatriptan 10 mg PO PRN PRN 12/27/17 [History Last Taken Unknown] aripiprazole [Abilify] 15 mg PO QHS 06/20/21 [History Last Taken 03/19/22] quetiapine [Seroquel] 100 mg PO QHS 06/20/21 [History Last Taken 03/19/22] pen needle,diabetic, disp unit #100 ea 06/23/21 [Rx Last Taken Unknown] alprazolam 0.5 mg PO DAILY 03/20/22 [History Last Taken 03/19/22] Allergy/AdvReac Type Severity Reaction Status Date / Time celecoxib [From Celebrex] Allergy Itching Verified 03/20/22 15:44 ciprofloxacin [From Cipro] Allergy Swelling Verified 03/20/22 15:44 ciprofloxacin HCl Allergy Swelling Verified 03/20/22 15:44 [From Cipro] codeine Allergy Hives Verified 03/20/22 15:44 ibuprofen Allergy Hives Verified 03/20/22 15:44 naproxen Allergy Hives Verified 03/20/22 15:44 Penicillins Allergy Hives Verified 03/20/22 15:44 tramadol HCl [From Ultram] Allergy Hives Verified 03/20/22 15:44 ketorolac [From Toradol] AdvReac Swelling Verified 03/20/22 15:44 Family History Other CVA (cerebral vascular accident) Cancer Diabetes Myocardial infarction Surgical History H/O: hysterectomy Hx of section S/P trigger finger release Social History Smoking Status: Former smoker alcohol intake: never ROS ROS ED Constitutional Constitutional ED: Denies chills or fever(s) Eyes Eyes: Denies blurry vision or diplopia ENT ENT ED: Denies rhinorrhea or sore throat Cardiovascular Cardiovascular: Denies chest pain or palpitations Respiratory/Chest Respiratory/Chest: Denies dyspnea or sputum Gastrointestinal Gastrointestinal: Denies abdominal pain, nausea or vomiting Genitourinary Genitourinary ED: Denies dysuria or hematuria Musculoskeletal Musculoskeletal: Denies arthralgias or myalgias Integumentary Denies rash Neurologic Neurologic: Reports paresthesias RLE and LLE; Denies headache(s) Psychiatric Psychiatric: Denies anxiety or depression Endocrine Endocrinology: Denies polydipsia or polyuria EXAM Physical Exam Const Vital Signs: 03/20/22 15:40 Temperature 97.9 F Temperature Source Temporal Pulse Rate 94 Respiratory Rate 18 Blood Pressure 137/92 H Blood Pressure Mean 107 Pulse Ox 98 Oxygen Delivery Method Room Air Positive well nourished General Appearance ED: NAD HEENT Reports moist mucous membranes Negative for trauma Eyes PERRL and EOMs intact bilaterally Cardio regular rate and regular rhythm Back/Spine Back/Spine Narrative: Diffuse generalized lumbar tenderness. No obvious deformity or step-off. Extremity Extremity Narrative: Patient has 5/5 lower extremity motor strength and is able to hold both legs off of the bed for greater than 5 seconds without any drift. Patient reports diminished sensation from the area above her knees bilaterally distally to the feet. Bilateral pedal pulses 1+. Neuro oriented x3 Sensorium / Orientation: alert Deep Tendon Reflexes: Rt Patellar (L4): 0 and Lt Patellar (L4): 0 Deep Tendon Reflexes Back: Rt Patellar (L4): 0 and Lt Patellar (L4): 0 Psych mental status grossly normal Skin no rashes or lesions noted MDM MDM MDM Narrative Medical decision making narrative: 56-year-old female with continued back pain and lower extremity paresthesias. Based on her MRI this should not be causing any kind of problems in the lower extremities as it shows degenerative changes without any significant nerve compression. She has no signs or symptoms of cauda equina syndrome. Patient states that she needs to be admitted to the hospital due to difficulty walking. She has some bruises and excoriations to the upper extremities from running into hazel. Blood work today shows a CBC which is relatively normal. BMP shows that her glucose again is uncontrolled and is 489. She has pseudohyponatremia with a sodium of 128. Creatinine slightly bumped to 1.27. No anion gap. Because the patient is unable to ambulate and requested shelter I spoke with social work who recommended admission for PT OT. I discussed this with the hospitalist and we gave the patient some insulin for her hyperglycemia. Hospitalist did add an A1c to her work-up and this appears to be 13.1. This may be causing the leg weakness and loss of sensation. She does appear to have uncontrolled diabetes and her blood sugars have been elevated on most of her visits. Impression: 1. Back pain 2. Lower extremity weakness 3. Paresthesias. 4. Uncontrolled diabetes Lab Data Attestation: I reviewed the patient's lab results. Labs: Laboratory Results - last 24 hr 03/20/22 03/20/22 03/20/22 16:47 16:47 16:47 WBC 6.8 RBC 4.08 L Hgb 12.9 Hct 35.5 L MCV 87.0 MCH 31.6 MCHC 36.3 H RDW Std Deviation 41.2 RDW Coeff of Anisa 13.0 Plt Count 263 MPV 9.7 Immature Gran % (Auto) 0.600 Neut % (Auto) 56.5 Lymph % (Auto) 37.6 [place] % (Auto) 4.3 Eos % (Auto) 0.4 Baso % (Auto) 0.6 Absolute Neuts (auto) 3.8 Absolute Lymphs (auto) 2.56 Nucleated RBC % 0 Sodium 128 L Potassium 3.6 Chloride 91 L Carbon Dioxide 27.0 Anion Gap 10 BUN 14 Creatinine 1.27 H Estim Creat Clear Calc 34.68 Est GFR (MDRD) Af Amer 56 L Est GFR (MDRD) Non-Af 46 L BUN/Creatinine Ratio 11.0 Glucose 489 H* Hemoglobin A1c 13.1 H Calcium 9.1 Discharge Plan Disposition Disposition: Acute Care Hospital [facility] Discharge Date/Time: 03/20/22 18:54
[2022-03-20 16:56] LABS: Absolute Lymphocyte Count 2.56 X10^3/uL (0.83-4.51); Absolute Neutrophil Count 3.8 X10^3/uL (2.0-7.7); Basophil# 0.04 X10^3/uL; Basophil% 0.6 % (0-1); Eosinophil# 0.03 X10^3/uL; Eosinophils% 0.4 % (0-5); Hematocrit 35.5 % (37-47); Hemoglobin 12.9 g/dL (12.0-15.0); Lymphocyte # 2.56 X10^3/ul (0.83-4.51); Lymphocyte % 37.6 % (19-41); Mean Corp Hgb Conc 36.3 g/dL (32-36); Mean Corpuscular Hgb 31.6 pg (27.0-32.0); Mean Platelet Vol. 9.7 fl (6.2-12.0); Monocyte# 0.29 X10^3/uL; Monocyte% 4.3 % (0-10); NRBC Flagged by Analyzer 0 % (0-5); Neutrophil # 3.84 X10^3/uL (2.7-7.7); Neutrophil % 56.5 % (47-70); Platelet Count 263 K/mm3 (150-450); RBC Distribution Width SD 41.2 fl (35.1-43.9); Red Blood Count 4.08 M/mm3 (4.2-5.4); White Blood Count 6.8 K/mm3 (4.4-11.0)
[2022-03-20 17:28] LABS: Anion Gap 10 (5-15); BUN 14 mg/dL (7-18); Calcium,Total 9.1 mg/dL (8.5-10.1); Chloride 91 mmol/L (98-107); Creatinine, Serum 1.27 mg/dL (0.55-1.02); EST Glomerular Filtration Rate 46 mL/min (>60); Est Glom Filt Rate - Afr Amer 56 mL/min (>60); Estimated Creatinine Clearance 34.68 ml/min; Glucose 489 mg/dL (74-106); Potassium 3.6 mmol/L (3.5-5.1); Sodium Level 128 mmol/L (136-145)
--- NOTE | 2022-03-20 17:40 | PCM.HP.STD ---
Documented by User: FRANSISCO Babcock 03/20/22 18:01 HPI - General General Date of Admission: 03/20/22 Date of Service: 03/20/22 Chief Complaint: Back and leg pain HPI Narrative SURI OCONNOR, is a 56 F who presents with chronic lower back and leg pain. Patient states however is gotten worse over the past few weeks. Patient states that she is now having leg weakness and is unable to ambulate as she normally does and her is unable to assist her as much as she needs. Patient was supposed to follow-up outpatient however she missed this appointment and has yet to reschedule. Patient also has reports a history of hypothyroidism, diabetes mellitus type 2, GERD, anxiety. [facility] Medical History Back pain Carpal tunnel syndrome Depression Diabetes Fatigue Kidney disease Kidney stones Migraines Opiate abuse, continuous Stomach ulcer Thyroid disease Type II diabetes mellitus, uncontrolled Home Medications rizatriptan 10 mg PO PRN PRN 12/27/17 [History Last Taken Unknown] aripiprazole [Abilify] 15 mg PO QHS 06/20/21 [History Last Taken 06/19/21] quetiapine [Seroquel] 100 mg PO QHS 06/20/21 [History Last Taken 06/19/21] pen needle,diabetic, disp unit #100 ea 06/23/21 [Rx Last Taken Unknown] alprazolam 0.5 mg PO DAILY 03/20/22 [History Last Taken 03/19/22] Allergy/AdvReac Type Severity Reaction Status Date / Time celecoxib [From Celebrex] Allergy Itching Verified 03/20/22 15:44 ciprofloxacin [From Cipro] Allergy Swelling Verified 03/20/22 15:44 ciprofloxacin HCl Allergy Swelling Verified 03/20/22 15:44 [From Cipro] codeine Allergy Hives Verified 03/20/22 15:44 ibuprofen Allergy Hives Verified 03/20/22 15:44 naproxen Allergy Hives Verified 03/20/22 15:44 Penicillins Allergy Hives Verified 03/20/22 15:44 tramadol HCl [From Ultram] Allergy Hives Verified 03/20/22 15:44 ketorolac [From Toradol] AdvReac Swelling Verified 03/20/22 15:44 Family History Other CVA (cerebral vascular accident) Cancer Diabetes Myocardial infarction Surgical History H/O: hysterectomy Hx of section S/P trigger finger release Social History Smoking Status: Former smoker alcohol intake: never ROS Constitutional Constitutional: Reports weakness; Denies anorexia, chills, fatigue or malaise Cardiovascular Cardiovascular: Denies chest pain, edema, palpitations or syncope Respiratory/Chest Respiratory/Chest: Denies cough, shortness of breath at rest, shortness of breath with exertion or wheezing Gastrointestinal Gastrointestinal: Denies abdominal pain, constipation, diarrhea, nausea or vomiting Genitourinary Genitourinary: Denies dysuria Musculoskeletal Musculoskeletal: Reports back pain, difficulty walking and extremity pain Integumentary Integumentary: Denies dry skin Neurologic Neurologic: Denies abnormal gait, abnormal speech, confusion or dizziness Psychiatric Psychiatric: Reports anxiety; Denies depression Endocrine Endocrinology: Denies change in body appearance Hematologic/Lymphatic Hematologic/Lymphatic: Denies anemia Vital Signs Vital Signs Vital Signs: 03/20/22 15:40 Temperature 97.9 F Temperature Source Temporal Pulse Rate 94 Respiratory Rate 18 Blood Pressure 137/92 H Blood Pressure Mean 107 Pulse Ox 98 Oxygen Delivery Method Room Air Weight Weight: 160 lb Body Mass Index (BMI) 31.2 Physical Exam Const alert, oriented x3 and no apparent distress General Appearance: cooperative HEENT normocephalic and head/scalp atraumatic Eyes conjunctivae normal and no scleral icterus Neck no lymphadenopathy and supple General: trachea midline Resp normal respiratory effort, normal air movement and clear to auscultation bilaterally Cardio regular rate, regular rhythm, S1 normal heart sound, S2 normal heart sound and peripheral pulses 2+ throughout GI normal to inspection, nondistended, normoactive bowel sounds, soft to palpation and non-tender Extremity normal to inspection, normal capillary refill and no clubbing, cyanosis or edema Peripheral Pulses: Yes pulses 2+ throughout Skin General Skin Exam: no breakdown and turgor normal Lesions: no lesions Rashes: no rashes Neuro oriented x3, no focal motor deficits and no sensory deficits noted Sensorium / Orientation: awake and alert Speech: speech normal Sensory Exam: extremities light-touch: normal Motor Exam: general weakness Psych cooperative Appearance: appropriate Results Lab / Micro Data Result Diagrams: 03/20/22 16:47 03/20/22 16:47 Labs: Laboratory Results - last 24 hr 03/20/22 16:47: WBC 6.8, RBC 4.08 L, Hgb 12.9, Hct 35.5 L, MCV 87.0, MCH 31.6, MCHC 36.3 H, RDW Std Deviation 41.2, RDW Coeff of Anisa 13.0, Plt Count 263, MPV 9.7, Immature Gran % (Auto) 0.600, Neut % (Auto) 56.5, Lymph % (Auto) 37.6, [place] % (Auto) 4.3, Eos % (Auto) 0.4, Baso % (Auto) 0.6, Absolute Neuts (auto) 3.8, Absolute Lymphs (auto) 2.56, Nucleated RBC % 0 03/20/22 16:47: Sodium 128 L, Potassium 3.6, Chloride 91 L, Carbon Dioxide 27.0, Anion Gap 10, BUN 14, Creatinine 1.27 H, Estim Creat Clear Calc 34.68, Est GFR (MDRD) Af Amer 56 L, Est GFR (MDRD) Non-Af 46 L, BUN/Creatinine Ratio 11.0, Glucose 489 H*, Calcium 9.1 Assessment & Plan Assessment/Plan (1) Intervertebral disc disorder with radiculopathy of lumbar region: PLAN: 1. Chronic low back pain secondary to L3-L4 interspinous ligament strain as noted on MRI on 02/24/2022 -Admit to MedSurg -PT and OT to eval and treat -Of note this patient is on care plan with the hospital with regard to treating her chronic back pain, patient has failed to follow-up appropriately outpatient. -Scheduled Lidoderm patch, gabapentin, Flexeril, Tylenol ordered for pain management -Case management consulted social work initiated pre-CERT for SNF placement due to weakness -CBC and CMP ordered daily 2. Hyponatremia and hypochloremia -Normal saline 125 L/h -CMP daily 3.Diabetes mellitus type 2 -Patient admits to not taking her medications at home for some time -ACH S blood sugars with sliding scale insulin ordered -severely hyperglycemic upon admission, given insulin lispro 20 units subcu x1 in ER 4. Anxiety -Continue Abilify, Celexa, Seroquel 5. Hypothyroidism -Continue levothyroxine 6. Chronic kidney disease stage IIIa -Creatinine consistent with baseline -CMP daily DVT prophylaxis-subcu heparin This patient was seen by DORIS BabcockC under the supervision of Dr. Shine. 28 minutes spent in clinical coordination of patient's plan of care. Documented by User: Dr. Kathia Shine MD 03/20/22 18:10 HPI - General General Date of Admission: 03/20/22 [facility] Medical History Back pain Carpal tunnel syndrome Depression Diabetes Fatigue Kidney disease Kidney stones Migraines Opiate abuse, continuous Stomach ulcer Thyroid disease Type II diabetes mellitus, uncontrolled Home Medications rizatriptan 10 mg PO PRN PRN 12/27/17 [History Last Taken Unknown] aripiprazole [Abilify] 15 mg PO QHS 06/20/21 [History Last Taken 06/19/21] quetiapine [Seroquel] 100 mg PO QHS 06/20/21 [History Last Taken 06/19/21] pen needle,diabetic, disp unit #100 ea 06/23/21 [Rx Last Taken Unknown] alprazolam 0.5 mg PO DAILY 03/20/22 [History Last Taken 03/19/22] Allergy/AdvReac Type Severity Reaction Status Date / Time celecoxib [From Celebrex] Allergy Itching Verified 03/20/22 15:44 ciprofloxacin [From Cipro] Allergy Swelling Verified 03/20/22 15:44 ciprofloxacin HCl Allergy Swelling Verified 03/20/22 15:44 [From Cipro] codeine Allergy Hives Verified 03/20/22 15:44 ibuprofen Allergy Hives Verified 03/20/22 15:44 naproxen Allergy Hives Verified 03/20/22 15:44 Penicillins Allergy Hives Verified 03/20/22 15:44 tramadol HCl [From Ultram] Allergy Hives Verified 03/20/22 15:44 ketorolac [From Toradol] AdvReac Swelling Verified 03/20/22 15:44 Family History Other CVA (cerebral vascular accident) Cancer Diabetes Myocardial infarction Surgical History H/O: hysterectomy Hx of section S/P trigger finger release Social History Smoking Status: Former smoker alcohol intake: never Results Lab / Micro Data Result Diagrams: 03/20/22 16:47 03/20/22 16:47 Charges/Coding Addendum Addendum: This patient was seen in conjunction with Zack Rivas NP. I have independently interviewed and examined the patient and reviewed pertinent historical, laboratory, and other data. I have reviewed her note and concur with her documentation 56-year-old with past medical history of type II DM, with undiagnosed peripheral neuropathy, chronic back pain who comes in with acute on chronic severe back pain, inability to walk. She has been holding onto hazel at home and crawling on her elbows. She has not been taking her medications -insulin- because she ran out of them. She denied any incontinence of urine or stool. She recently had an MRI of the spine that showed degenerative changes in the L3-L4. Patient states with her and admits she needs help and is willing to go for subacute care. Physical Exam: Gen: Comfortable, not pale, not jaundiced CVS:HS I +II, regular, no murmurs RESP: Diminished at lung bases GI: BS present and normal, soft, nontender, no palpable organs EXT: Bruises over the left elbow from crawling, very mild redness, no discharge Labs: CBCD is unremarkable, sodium is 128, creatinine is 127, close to baseline, blood glucose is 489 ASSESSMENT: 1. Acute on chronic back pain 2. Type II DM, on control blood sugars 3. Peripheral neuropathy likely secondary to diabetes 4. Hypertension 5. CKD stage IIIa [facility] fluid Resume insulin regimen Check HbA1c Blood glucose checks with insulin sliding scale PT/OT to evaluate and treat Scheduled Tylenol, Lidoderm patches, gabapentin 100 mg p.o. 3 times daily, Flexeril Time spent taking history, physical examining patient, discussing with social work coordinating all aspects of patient's care, discussing with nursin minutes I discussed and explained in details the various types of CODE STATUS-full code, DNR CCA, DNR CC. Patient chose to be full code and wants everything done to keep her alive. Time spent discussing CODE STATUS 16 minutes Visit Charges OBSV E&M: 36580 Initial observation care L3 Procedures Hospitalists Procedures: 95727 Advncd Care Plan 30 Min
[2022-03-20 17:47] LABS: Mucous, Urine 0 SEEN /hpf (<or=2+); Red Blood Cells-Urine 0 SEEN /hpf (0-5)
--- NOTE | 2022-03-20 17:59 | CM.ED ---
Social Work Note SW updated that pt is requesting SNF placement. Pt is [employer] insurance and will require pre-cert. SW in to speak with pt. SW asked pt about going to a SNF. Pt states if I have to, I will. SW informed pt the process of going to SNF and how pre-cert will be needed. SW informed pt that she will be at [facility] through the weekend and nothing can be started until Wednesday due to the Holiday weekend. SW provided pt with list of SNF and highlighted the SNF that accept pt's insurance. SW encouraged pt to have three choices for SNF. Pt states understanding. Plan: Admission for SNF placement. Rocio Fuentes AIR LIFT OPERATOR, DRIVER HELPER
[2022-03-20 18:02] LABS: Color, Urine Yellow (Yellow); Glucose, Dipstick 1000 mg/dl (Normal); Ketone-Dipstick Negative (Negative); Leukocyte Esterase-Dipstick 100 /ul (Negative); Nitrite-Dipstick Negative (Negative); Occult Blood-Urine 10 /ul (Negative); Protein-Dipstick 30 mg/dl (Negative); Specific Gravity, Urine 1.015 (1.002-1.030); Urine Bilirubin Dipstick Negative (Negative); Urine Clarity Clear (Clear); Urine Urobilinogen Normal (Normal)
--- NOTE | 2022-03-20 18:07 | NURSING ---
Received call from Dr Shine who requests pt not get any narcotic pain meds d/t trying other pain management orders.
[2022-03-20 18:17] LABS: Hemoglobin A1c 13.1 % (3.8-5.6)
[2022-03-20 18:20] VITALS: BMI 32.3
[2022-03-20 18:30] VITALS: BP 137/89; PULSE 80; RESP 16; TEMP 36.2; O2SAT 100
[2022-03-20 18:30] LABS: Bacteria 2+ /hpf (None Seen); Squamous Epithelial Cells - UA 5-10 SEEN /hpf (5-10)
[2022-03-20 18:31] LABS: White Blood Cells 25-50 SEEN /hpf (0-5)
[2022-03-20 18:46] LABS: Bedside Glucose 420 mg/dL (74-106)
[2022-03-20] MEDS: Insulin Lispro 100 UNIT/ML INSULN.PEN 20 UNIT SC (18:46)
[2022-03-20] MEDS: 0.9% Normal Saline 1,000 ML 125 ML IV (18:47)
[2022-03-20 21:33] VITALS: BP 116/72; PULSE 81; RESP 16; TEMP 36.6; O2SAT 98
[2022-03-20] MEDS: Heparin Injection (Vial) 5,000 UNIT/ML VIAL 5000 UNIT SC (21:39)
[2022-03-20] MEDS: Insulin Lispro 100 UNIT/ML INSULN.PEN SC (21:39)
[2022-03-20] MEDS: ARIPiprazole 5 MG Tablet 15 MG PO (21:40)
[2022-03-20] MEDS: cycloBENZAPRine HCl 10 MG Tablet PO (21:40)
[2022-03-20] MEDS: QUEtiapine 100 MG Tablet PO (21:40)
[2022-03-20] MEDS: Acetaminophen 500 MG Tablet 1000 MG PO (21:40)
[2022-03-20 22:00] LABS: Bedside Glucose 361 mg/dL (74-106)
[2022-03-21] MEDS: 0.9% Normal Saline 1,000 ML 125 ML IV ×2 (02:47→10:36)
[2022-03-21 03:02] VITALS: BP 101/62; PULSE 78; RESP 16; TEMP 36.6; O2SAT 95
[2022-03-21 05:59] LABS: Absolute Lymphocyte Count 2.49 X10^3/uL (0.83-4.51); Absolute Neutrophil Count 3.2 X10^3/uL (2.0-7.7); Basophil# 0.05 X10^3/uL; Basophil% 0.8 % (0-1); Eosinophil# 0.03 X10^3/uL; Eosinophils% 0.5 % (0-5); Hematocrit 32.9 % (37-47); Hemoglobin 11.5 g/dL (12.0-15.0); Lymphocyte # 2.49 X10^3/ul (0.83-4.51); Lymphocyte % 41.1 % (19-41); Mean Corpuscular Hgb 30.7 pg (27.0-32.0); Mean Corpuscular Volume 87.7 fL (81-99); Mean Platelet Vol. 9.7 fl (6.2-12.0); Monocyte# 0.32 X10^3/uL; Monocyte% 5.3 % (0-10); NRBC Flagged by Analyzer 0 % (0-5); Neutrophil # 3.15 X10^3/uL (2.7-7.7); Platelet Count 242 K/mm3 (150-450); RBC Distribution Width CV 13.2 % (11.6-14.6); RBC Distribution Width SD 42.3 fl (35.1-43.9); Red Blood Count 3.75 M/mm3 (4.2-5.4); White Blood Count 6.1 K/mm3 (4.4-11.0)
[2022-03-21 06:34] LABS: ALB/GLOB Ratio 0.9 RATIO (0.9-2.4); AST(SGOT) 32 U/L (15-37); Alanine Aminotransfer ALT/SGPT 35 U/L (13-56); Albumin, Serum 3.2 g/dL (3.2-5.0); Alkaline Phosphatase 78 U/L (45-117); Anion Gap 6 (5-15); BUN 15 mg/dL (7-18); BUN/Creat Ratio 13.6 RATIO (10-20); Calcium,Total 8.6 mg/dL (8.5-10.1); Chloride 100 mmol/L (98-107); EST Glomerular Filtration Rate 54 mL/min (>60); Est Glom Filt Rate - Afr Amer 66 mL/min (>60); Estimated Creatinine Clearance 40.04 ml/min; Globulin 3.7 g/dL (2.2-4.2); Glucose 231 mg/dL (74-106); Potassium 2.8 mmol/L (3.5-5.1); Protein, Total 6.9 g/dL (6.4-8.2); Sodium Level 134 mmol/L (136-145)
[2022-03-21] MEDS: Insulin Lispro 100 UNIT/ML INSULN.PEN SC ×4 (06:35→21:19)
[2022-03-21] MEDS: cycloBENZAPRine HCl 10 MG Tablet PO ×3 (06:35→21:20)
[2022-03-21] MEDS: Heparin Injection (Vial) 5,000 UNIT/ML VIAL 5000 UNIT SC ×3 (06:35→21:20)
[2022-03-21] MEDS: Acetaminophen 500 MG Tablet 1000 MG PO ×3 (06:36→21:21)
[2022-03-21 06:45] LABS: Bedside Glucose 224 mg/dL (74-106)
[2022-03-21] MEDS: Potassium Chloride 10mEq/100mL 10 MEQ/100 ML IV.SOLN. 100 MEQ IV BOLUS ×4 (08:02→11:59)
[2022-03-21] MEDS: Gabapentin 100 MG Capsule PO ×3 (08:36→16:44)
[2022-03-21] MEDS: Potassium Chloride Oral Tablet 20 MEQ 40 MEQ PO ×2 (08:36→16:44)
[2022-03-21] MEDS: Lidocaine 5% Patch 2 PATCH TOPICAL (08:37)
[2022-03-21 08:40] VITALS: BP 127/76; PULSE 86; RESP 18; TEMP 36.7; O2SAT 97
--- NOTE | 2022-03-21 08:44 | PCM.PN.HOSP ---
Documented by User: FRANSISCO Babcock 03/21/22 08:49 Subjective Subjective Patient seen and examined. Patient lying in bed no distress noted, resting comfortably. Objective Data Objective Data Vital Signs: Vital Signs Temp Pulse Resp BP Pulse Ox 98.0 F 86 18 127/76 H 97 03/21/22 08:40 03/21/22 08:40 03/21/22 08:40 03/21/22 08:40 03/21/22 08:40 Oxygen Delivery Method Room Air Weight: 165 lb 5.547 oz Body Mass Index (BMI) 32.3 Intake & Output: Intake and Output for Last 24 Hours 03/19/22 03/20/22 03/21/22 23:59 23:59 23:59 Intake Total 1240 / 1240 Balance 1240 / 1240 Lab / Micro Data Result Diagrams: 03/21/22 05:23 03/21/22 05:23 Labs: Laboratory Results - last 24 hr 03/20/22 16:47: WBC 6.8, RBC 4.08 L, Hgb 12.9, Hct 35.5 L, MCV 87.0, MCH 31.6, MCHC 36.3 H, RDW Std Deviation 41.2, RDW Coeff of Anisa 13.0, Plt Count 263, MPV 9.7, Immature Gran % (Auto) 0.600, Neut % (Auto) 56.5, Lymph % (Auto) 37.6, [place] % (Auto) 4.3, Eos % (Auto) 0.4, Baso % (Auto) 0.6, Absolute Neuts (auto) 3.8, Absolute Lymphs (auto) 2.56, Nucleated RBC % 0 03/20/22 16:47: Sodium 128 L, Potassium 3.6, Chloride 91 L, Carbon Dioxide 27.0, Anion Gap 10, BUN 14, Creatinine 1.27 H, Estim Creat Clear Calc 34.68, Est GFR (MDRD) Af Amer 56 L, Est GFR (MDRD) Non-Af 46 L, BUN/Creatinine Ratio 11.0, Glucose 489 H*, Calcium 9.1 03/20/22 16:47: Hemoglobin A1c 13.1 H 03/20/22 17:30: Urine Color Yellow, Urine Clarity Clear, Urine pH 6.0, Ur Specific [place] 1.015, Urine Protein 30 H, Urine Glucose (UA) 1000 H, Urine Ketones Negative, Urine Occult Blood 10 H, Urine Nitrite Negative, Urine Bilirubin Negative, Urine Urobilinogen Normal, Ur Leukocyte Esterase 100 H, Urine RBC 0 SEEN, Urine WBC 25-50 SEEN, Ur Squamous Epith Cells 5-10 SEEN, Urine Bacteria 2+, Urine Mucus 0 SEEN 03/20/22 18:33: POC Glucose 420 H 03/20/22 21:37: POC Glucose 361 H 03/21/22 05:23: WBC 6.1, RBC 3.75 L, Hgb 11.5 L, Hct 32.9 L, MCV 87.7, MCH 30.7, MCHC 35.0, RDW Std Deviation 42.3, RDW Coeff of Anisa 13.2, Plt Count 242, MPV 9.7, Immature Gran % (Auto) 0.300, Neut % (Auto) 52.0, Lymph % (Auto) 41.1 H, [place] % (Auto) 5.3, Eos % (Auto) 0.5, Baso % (Auto) 0.8, Absolute Neuts (auto) 3.2, Absolute Lymphs (auto) 2.49, Nucleated RBC % 0 03/21/22 05:23: Sodium 134 L, Potassium 2.8 L, Chloride 100, Carbon Dioxide 28.0, Anion Gap 6, BUN 15, Creatinine 1.10 H, Estim Creat Clear Calc 40.04, Est GFR (MDRD) Af Amer 66, Est GFR (MDRD) Non-Af 54 L, BUN/Creatinine Ratio 13.6, Glucose 231 H, Calcium 8.6, Total Bilirubin 0.40, AST 32, ALT 35, Alkaline Phosphatase 78, Total Protein 6.9, Albumin 3.2, Globulin 3.7, Albumin/Globulin Ratio 0.9 03/21/22 05:23: Magnesium 2.0 03/21/22 06:33: POC Glucose 224 H Physical Exam Const alert, oriented x3 and no apparent distress General Appearance: cooperative HEENT normocephalic and head/scalp atraumatic Eyes conjunctivae normal and no scleral icterus Neck no lymphadenopathy and supple General: trachea midline Resp normal respiratory effort, normal air movement and clear to auscultation bilaterally Cardio regular rate, regular rhythm, S1 normal heart sound, S2 normal heart sound and peripheral pulses 2+ throughout GI normal to inspection, nondistended, normoactive bowel sounds, soft to palpation and non-tender Extremity normal to inspection, normal capillary refill and no clubbing, cyanosis or edema Skin General Skin Exam: no breakdown and turgor normal Lesions: no lesions Rashes: no rashes Neuro oriented x3, no focal motor deficits and no sensory deficits noted Sensorium / Orientation: awake and alert Speech: speech normal Sensory Exam: extremities light-touch: normal Motor Exam: general weakness Psych cooperative Appearance: appropriate Assessment & Plan Assessment/Plan (1) Intervertebral disc disorder with radiculopathy of lumbar region: PLAN: 1. Chronic low back pain secondary to L3-L4 interspinous ligament strain as noted on MRI on 02/24/2022 -PT and OT to eval and treat -Of note this patient is on care plan with the hospital with regard to treating her chronic back pain, patient has failed to follow-up appropriately outpatient. -Scheduled Lidoderm patch, gabapentin, Flexeril, Tylenol ordered for pain management -Case management consulted social work initiated pre-CERT for SNF placement due to weakness -CBC and CMP ordered daily 2. Hypokalemic -Potassium 2.8 today -Potassium chloride 40 mEq p.o. twice daily ordered along with 40 mEq IV x1 -CMP daily 3. Hyponatremia and hypochloremia -Improved 134 and 100 today -Normal saline 125 L/h -CMP daily 4.Diabetes mellitus type 2 -Patient admits to not taking her medications at home for some time -ACH S blood sugars with sliding scale insulin ordered -severely hyperglycemic upon admission, given insulin lispro 20 units subcu x1 in ER 5. Anxiety -Continue Abilify, Celexa, Seroquel 6. Hypothyroidism -Continue levothyroxine 7. Chronic kidney disease stage IIIa -Creatinine consistent with baseline -CMP daily DVT prophylaxis-subcu heparin This patient was seen by Annabel Rivas NP-C under the supervision of Dr. Shine. 14 minutes spent in clinical coordination of patient's plan of care. Documented by User: Dr. Kathia Shine MD 03/21/22 10:16 Objective Data Lab / Micro Data Result Diagrams: 03/21/22 05:23 03/21/22 05:23 Charges/Coding Addendum Addendum: This patient was seen in conjunction with Zack Rivas NP. I have independently interviewed and examined the patient and reviewed pertinent historical, laboratory, and other data. I have reviewed her note and concur with her documentation Patient was seen and examined. No acute events overnight. Her pain is fairly controlled. Denied any fever or chills. Physical Exam: Gen: Comfortable, not pale, not jaundiced CVS:HS I +II, regular, no murmurs RESP: Diminished at lung bases GI: BS present and normal, soft, nontender, no palpable organs EXT: Bruises over the left elbow from crawling, very mild redness, no discharge ASSESSMENT: 1. Acute on chronic back pain 2. Hypokalemia 3.Type II DM, on control blood sugars 4. Peripheral neuropathy likely secondary to diabetes 5. Hypertension 6. CKD stage IIIa Plan: Continue on the decrease amount of IV fluids Replace potassium, recheck at 3 PM Continue blood glucose checks with insulin sliding scale PT/OT to evaluate and treat Scheduled Tylenol, Lidoderm patches, gabapentin and Flexeril Time spent coordinating all aspects of patient's care, discussing with nursin minutes Visit Charges Inpatient E&M: 38602 Subs Hosp L2
--- NOTE | 2022-03-21 09:26 | CASEMGMT ---
MADDISON CM in to discuss BOB form with patient. RN CM explained BOB form, patient voiced understanding. Pt signed form and filed in chart. Pt provided with a copy of signed BOB form. Patient had no further questions or concerns at this time.
[2022-03-21] MEDS: ALPRAZolam 0.5 MG Tablet PO (09:41)
[2022-03-21 11:36] LABS: Bedside Glucose 299 mg/dL (74-106)
--- NOTE | 2022-03-21 12:29 | CM.ED ---
SW Note SW met with patient to determine where she wants referrals to be made. Patient said that her first choice is [facility]. Second choice is [facility] and 3rd choice is [facility]. Plan: [facility] Magali ERVIN
--- NOTE | 2022-03-21 14:03 | CM.ED ---
Social Work Note Referral was made to [facility]. Referrals were also faxed to [facility] and [facility]. Rocio Fuentes MSW, DENTAL TREATMENT COORDINATOR
[2022-03-21 14:37] LABS: Anion Gap 7 (5-15); BUN 16 mg/dL (7-18); BUN/Creat Ratio 12.5 RATIO (10-20); Calcium,Total 8.5 mg/dL (8.5-10.1); Chloride 98 mmol/L (98-107); Creatinine, Serum 1.28 mg/dL (0.55-1.02); EST Glomerular Filtration Rate 45 mL/min (>60); Est Glom Filt Rate - Afr Amer 55 mL/min (>60); Estimated Creatinine Clearance 34.41 ml/min; Glucose 324 mg/dL (74-106); Potassium 3.8 mmol/L (3.5-5.1); Sodium Level 133 mmol/L (136-145)
[2022-03-21 15:00] VITALS: BP 129/74; PULSE 84; RESP 16; TEMP 36.8; O2SAT 95
[2022-03-21 16:45] LABS: Bedside Glucose 270 mg/dL (74-106)
[2022-03-21 21:00] VITALS: BP 122/84; PULSE 94; RESP 16; TEMP 36.7; O2SAT 95
[2022-03-21] MEDS: ARIPiprazole 5 MG Tablet 15 MG PO (21:21)
[2022-03-21] MEDS: QUEtiapine 100 MG Tablet PO (21:22)
[2022-03-21 22:31] LABS: Bedside Glucose 345 mg/dL (74-106)
[2022-03-21] MEDS: 0.9% Normal Saline 1,000 ML 75 ML IV (23:17)
[2022-03-22 03:00] VITALS: BP 105/71; PULSE 84; RESP 16; TEMP 36.6; O2SAT 94
[2022-03-22 05:43] LABS: Absolute Lymphocyte Count 2.07 X10^3/uL (0.83-4.51); Absolute Neutrophil Count 3.1 X10^3/uL (2.0-7.7); Basophil# 0.04 X10^3/uL; Basophil% 0.7 % (0-1); Eosinophil# 0.07 X10^3/uL; Eosinophils% 1.2 % (0-5); Hematocrit 33.2 % (37-47); Hemoglobin 11.5 g/dL (12.0-15.0); Lymphocyte # 2.07 X10^3/ul (0.83-4.51); Lymphocyte % 36.8 % (19-41); Mean Corp Hgb Conc 34.6 g/dL (32-36); Mean Corpuscular Hgb 31.4 pg (27.0-32.0); Mean Corpuscular Volume 90.7 fL (81-99); Mean Platelet Vol. 9.8 fl (6.2-12.0); Monocyte# 0.26 X10^3/uL; Monocyte% 4.6 % (0-10); NRBC Flagged by Analyzer 0 % (0-5); Neutrophil # 3.13 X10^3/uL (2.7-7.7); Neutrophil % 55.8 % (47-70); Platelet Count 229 K/mm3 (150-450); RBC Distribution Width CV 13.2 % (11.6-14.6); RBC Distribution Width SD 43.8 fl (35.1-43.9); Red Blood Count 3.66 M/mm3 (4.2-5.4); White Blood Count 5.6 K/mm3 (4.4-11.0)
[2022-03-22 06:11] LABS: ALB/GLOB Ratio 0.8 RATIO (0.9-2.4); AST(SGOT) 40 U/L (15-37); Alanine Aminotransfer ALT/SGPT 39 U/L (13-56); Alkaline Phosphatase 77 U/L (45-117); Anion Gap 6 (5-15); BUN 14 mg/dL (7-18); Calcium,Total 8.9 mg/dL (8.5-10.1); Chloride 99 mmol/L (98-107); Creatinine, Serum 1.17 mg/dL (0.55-1.02); EST Glomerular Filtration Rate 50 mL/min (>60); Est Glom Filt Rate - Afr Amer 61 mL/min (>60); Estimated Creatinine Clearance 37.65 ml/min; Globulin 3.7 g/dL (2.2-4.2); Glucose 333 mg/dL (74-106); Protein, Total 6.7 g/dL (6.4-8.2); Sodium Level 132 mmol/L (136-145)
[2022-03-22] MEDS: Insulin Lispro 100 UNIT/ML INSULN.PEN SC ×4 (06:39→22:18)
[2022-03-22] MEDS: cycloBENZAPRine HCl 10 MG Tablet PO ×3 (06:40→22:14)
[2022-03-22] MEDS: Acetaminophen 500 MG Tablet 1000 MG PO ×3 (06:40→22:13)
[2022-03-22] MEDS: Heparin Injection (Vial) 5,000 UNIT/ML VIAL 5000 UNIT SC ×3 (06:40→22:15)
[2022-03-22 06:51] LABS: Bedside Glucose 343 mg/dL (74-106)
[2022-03-22] MEDS: Gabapentin 100 MG Capsule PO (08:37)
[2022-03-22 08:40] VITALS: BP 148/86; PULSE 88; RESP 16; TEMP 36.7; O2SAT 94
--- NOTE | 2022-03-22 09:17 | PN.HOSP_ITS ---
Documented by User: Annabel Rivas NP-C 03/22/22 09:23 Subjective Subjective Patient seen and examined. Patient laying in bed no distress noted. Patient states that she continues to have a tingling and crawling feeling in her legs. Objective Data Objective Data Vital Signs: Vital Signs Temp Pulse Resp BP Pulse Ox 98.1 F 88 16 148/86 H 94 03/22/22 08:40 03/22/22 08:40 03/22/22 08:40 03/22/22 08:40 03/22/22 08:40 Oxygen Delivery Method Room Air Weight: 165 lb 5.547 oz Body Mass Index (BMI) 32.3 Intake & Output: Intake and Output for Last 24 Hours 03/20/22 03/21/22 03/22/22 23:59 23:59 23:59 Intake Total 4877.08 / 4877.08 827.5 / 827.5 Output Total 1500 / 1500 Balance 3377.08 / 3377.08 827.5 / 827.5 Lab / Micro Data Result Diagrams: 03/22/22 05:28 03/22/22 05:28 Labs: Laboratory Results - last 24 hr 03/21/22 11:30: POC Glucose 299 H 03/21/22 14:00: Sodium 133 L, Potassium 3.8, Chloride 98, Carbon Dioxide 28.0, Anion Gap 7, BUN 16, Creatinine 1.28 H, Estim Creat Clear Calc 34.41, Est GFR (MDRD) Af Amer 55 L, Est GFR (MDRD) Non-Af 45 L, BUN/Creatinine Ratio 12.5, Glucose 324 H, Calcium 8.5 03/21/22 16:38: POC Glucose 270 H 03/21/22 21:18: POC Glucose 345 H 03/22/22 05:28: WBC 5.6, RBC 3.66 L, Hgb 11.5 L, Hct 33.2 L, MCV 90.7, MCH 31.4, MCHC 34.6, RDW Std Deviation 43.8, RDW Coeff of Anisa 13.2, Plt Count 229, MPV 9.8, Immature Gran % (Auto) 0.900, Neut % (Auto) 55.8, Lymph % (Auto) 36.8, [place] % (Auto) 4.6, Eos % (Auto) 1.2, Baso % (Auto) 0.7, Absolute Neuts (auto) 3.1, Absolute Lymphs (auto) 2.07, Nucleated RBC % 0 03/22/22 05:28: Sodium 132 L, Potassium 4.0, Chloride 99, Carbon Dioxide 27.0, Anion Gap 6, BUN 14, Creatinine 1.17 H, Estim Creat Clear Calc 37.65, Est GFR (MDRD) Af Amer 61, Est GFR (MDRD) Non-Af 50 L, BUN/Creatinine Ratio 12.0, Glucose 333 H, Calcium 8.9, Total Bilirubin 0.40, AST 40 H, ALT 39, Alkaline Phosphatase 77, Total Protein 6.7, Albumin 3.0 L, Globulin 3.7, Albumin/Globulin Ratio 0.8 L 03/22/22 06:37: POC Glucose 343 H Physical Exam Const alert, oriented x3 and no apparent distress General Appearance: cooperative HEENT normocephalic and head/scalp atraumatic Eyes conjunctivae normal and no scleral icterus Neck no lymphadenopathy and supple General: trachea midline Resp normal respiratory effort, normal air movement and clear to auscultation bilaterally Cardio regular rate, regular rhythm, S1 normal heart sound, S2 normal heart sound and peripheral pulses 2+ throughout GI normal to inspection, nondistended, normoactive bowel sounds, soft to palpation and non-tender Extremity normal to inspection, normal capillary refill and no clubbing, cyanosis or edema Skin General Skin Exam: no breakdown and turgor normal Lesions: no lesions Rashes: no rashes Neuro oriented x3, no focal motor deficits and no sensory deficits noted Sensorium / Orientation: awake and alert Speech: speech normal Sensory Exam: extremities light-touch: normal Motor Exam: general weakness Psych cooperative Appearance: appropriate Assessment & Plan Assessment/Plan (1) Intervertebral disc disorder with radiculopathy of lumbar region: PLAN: 1. Chronic low back pain secondary to L3-L4 interspinous ligament strain as noted on MRI on 02/24/2022 -PT and OT following -Of note this patient is on care plan with the hospital with regard to treating her chronic back pain, patient has failed to follow-up appropriately outpatient. -Scheduled Lidoderm patch, gabapentin, Flexeril, Tylenol ordered for pain management. Gabapentin will be increased from 100 mg 3 times daily to 300 mg 3 times daily for nerve pain in bilateral legs -Case management consulted social work initiated pre-CERT for SNF placement due to weakness -CBC and CMP ordered daily 2. Hypokalemic -Potassium 4.0 today, resolved -CMP daily 3. Hyponatremia and hypochloremia -Sodium and chloride 132 and 99 today -Normal saline discontinued -CMP daily 4.Diabetes mellitus type 2 -Patient admits to not taking her medications at home for some time -ACH S blood sugars with sliding scale insulin ordered, sliding scale increased from high medium to high dosing -Patient initiated on Lantus 20 units daily 5. Anxiety -Continue Abilify, Celexa, Seroquel 6. Hypothyroidism -Continue levothyroxine 7. Chronic kidney disease stage IIIa -Creatinine consistent with baseline -CMP daily DVT prophylaxis-subcu heparin This patient was seen by Annabel Rivas NP-C under the supervision of Dr. Shine. 12 minutes spent in clinical coordination of patient's plan of care. Documented by User: Dr. Kathia Shine MD 03/22/22 13:20 Objective Data Lab / Micro Data Result Diagrams: 03/22/22 05:28 03/22/22 05:28 Charges/Coding Addendum Addendum: This patient was seen in conjunction with Zack Rivas NP. I have independently interviewed and examined the patient and reviewed pertinent historical, laboratory, and other data. I have reviewed her note and concur with her documentation Patient was seen and examined. No acute events overnight. No acute events. Blood glucose remains uncontrolled Physical Exam: Gen: Comfortable, not pale, not jaundiced CVS:HS I +II, regular, no murmurs RESP: Diminished at lung bases GI: BS present and normal, soft, nontender, no palpable organs EXT: Bruises over the left elbow from crawling, very mild redness, no discharge ASSESSMENT: 1. Acute on chronic back pain 2. Hypokalemia 3.Type II DM, on control blood sugars 4. Peripheral neuropathy likely secondary to diabetes 5. Hypertension 6. CKD stage IIIa Plan: DC IV fluids Start Lantus 20 units daily Continue blood glucose checks with insulin sliding scale Continue on scheduled Tylenol, Lidoderm patches, gabapentin and Flexeril PT/OT to evaluate and treat Discharge planning with social work Time spent coordinating all aspects of patient's care, discussing with nursin minutes Visit Charges Inpatient E&M: 13647 Subs Hosp L2
[2022-03-22] MEDS: ALPRAZolam 0.5 MG Tablet PO (10:11)
[2022-03-22] MEDS: Insulin Glargine-YFGN 100 UNIT/ML Pen 20 UNIT SC (10:11)
[2022-03-22] MEDS: Lidocaine 5% Patch 2 PATCH TOPICAL (10:11)
[2022-03-22 10:18] VITALS: BP 125/83; PULSE 82; RESP 16; TEMP 36.8; O2SAT 95
[2022-03-22] MEDS: Gabapentin 300 MG Capsule PO ×2 (11:38→16:55)
[2022-03-22 11:41] LABS: Bedside Glucose 345 mg/dL (74-106)
[2022-03-22 16:02] VITALS: BP 102/64; PULSE 88; RESP 16; TEMP 36.8; O2SAT 93
[2022-03-22 17:00] LABS: Bedside Glucose 342 mg/dL (74-106)
[2022-03-22 22:00] VITALS: BP 97/73; PULSE 91; RESP 16; TEMP 36.9; O2SAT 94
[2022-03-22] MEDS: ARIPiprazole 5 MG Tablet 15 MG PO (22:13)
[2022-03-22] MEDS: QUEtiapine 100 MG Tablet PO (22:13)
[2022-03-22 22:25] LABS: Bedside Glucose 285 mg/dL (74-106)
[2022-03-22] MEDS: 0.9% Saline Lock 10 ML Syringe IV ×2 (23:18→23:32)
[2022-03-22] MEDS: Ondansetron 4 MG/2 ML Vial IV (23:32)
[2022-03-23] VITALS (8 sets, daily range): BP systolic 70–111; BP diastolic 57–76; PULSE 88–99; RESP 16–18; TEMP 36.4–36.6; O2SAT 88–95
--- NOTE | 2022-03-23 04:31 | NURSING ---
Pts SPO2 on RA-89%. When asked to take in deeper breaths patients SPO2 went up to 97% on RA. PT could not maintain and her SPO2 would go back to 89%. Pt did state she was a litte short of breathe. PT given an IS and was instructed how to use it and showed return demonstration. Patient placed on 2L NC.
[2022-03-23 05:19] LABS: Absolute Lymphocyte Count 2.04 X10^3/uL (0.83-4.51); Absolute Neutrophil Count 5.6 X10^3/uL (2.0-7.7); Basophil# 0.04 X10^3/uL; Basophil% 0.5 % (0-1); Eosinophil# 0.06 X10^3/uL; Eosinophils% 0.7 % (0-5); Hematocrit 31.6 % (37-47); Lymphocyte # 2.04 X10^3/ul (0.83-4.51); Lymphocyte % 25.3 % (19-41); Mean Corp Hgb Conc 34.8 g/dL (32-36); Mean Corpuscular Hgb 31.2 pg (27.0-32.0); Mean Corpuscular Volume 89.5 fL (81-99); Mean Platelet Vol. 10.1 fl (6.2-12.0); Monocyte# 0.32 X10^3/uL; NRBC Flagged by Analyzer 0.2 % (0-5); Neutrophil # 5.55 X10^3/uL (2.7-7.7); Platelet Count 217 K/mm3 (150-450); RBC Distribution Width CV 13.3 % (11.6-14.6); RBC Distribution Width SD 43.6 fl (35.1-43.9); Red Blood Count 3.53 M/mm3 (4.2-5.4); White Blood Count 8.1 K/mm3 (4.4-11.0)
[2022-03-23 05:48] LABS: ALB/GLOB Ratio 0.8 RATIO (0.9-2.4); AST(SGOT) 58 U/L (15-37); Alanine Aminotransfer ALT/SGPT 48 U/L (13-56); Alkaline Phosphatase 73 U/L (45-117); Anion Gap 8 (5-15); BUN 16 mg/dL (7-18); BUN/Creat Ratio 13.8 RATIO (10-20); Calcium,Total 9.3 mg/dL (8.5-10.1); Chloride 96 mmol/L (98-107); Creatinine, Serum 1.16 mg/dL (0.55-1.02); EST Glomerular Filtration Rate 51 mL/min (>60); Est Glom Filt Rate - Afr Amer 62 mL/min (>60); Estimated Creatinine Clearance 37.97 ml/min; Globulin 3.6 g/dL (2.2-4.2); Glucose 289 mg/dL (74-106); Potassium 4.2 mmol/L (3.5-5.1); Protein, Total 6.6 g/dL (6.4-8.2); Sodium Level 132 mmol/L (136-145)
[2022-03-23] MEDS: Heparin Injection (Vial) 5,000 UNIT/ML VIAL 5000 UNIT SC ×3 (06:22→21:43)
[2022-03-23] MEDS: cycloBENZAPRine HCl 10 MG Tablet PO ×3 (06:22→21:43)
[2022-03-23] MEDS: Acetaminophen 500 MG Tablet 1000 MG PO ×3 (06:22→21:42)
[2022-03-23] MEDS: Insulin Lispro 100 UNIT/ML INSULN.PEN SC ×5 (06:24→21:43)
[2022-03-23 06:36] LABS: Bedside Glucose 280 mg/dL (74-106)
--- NOTE | 2022-03-23 07:53 | PN.HOSP_ITS ---
Objective Data Objective Data Vital Signs: Vital Signs Temp Pulse Resp BP Pulse Ox 97.9 F 89 16 105/76 95 03/23/22 04:31 03/23/22 04:31 03/23/22 04:31 03/23/22 04:31 03/23/22 04:31 Oxygen Flow Rate (L/min) 2 Oxygen Delivery Method Nasal Cannula Weight: 165 lb 5.547 oz Body Mass Index (BMI) 32.3 Intake & Output: Intake and Output for Last 24 Hours 03/21/22 03/22/22 03/23/22 23:59 23:59 23:59 Intake Total 4877.08 / 4877.08 1587.5 / 1587.5 Output Total 1500 / 1500 Balance 3377.08 / 3377.08 1587.5 / 1587.5 Lab / Micro Data Result Diagrams: 03/23/22 04:27 03/23/22 04:27 Labs: Laboratory Results - last 24 hr 03/22/22 11:34: POC Glucose 345 H 03/22/22 16:54: POC Glucose 342 H 03/22/22 22:17: POC Glucose 285 H 03/23/22 04:27: WBC 8.1, RBC 3.53 L, Hgb 11.0 L, Hct 31.6 L, MCV 89.5, MCH 31.2, MCHC 34.8, RDW Std Deviation 43.6, RDW Coeff of Anisa 13.3, Plt Count 217, MPV 10.1, Immature Gran % (Auto) 0.500, Neut % (Auto) 69.0, Lymph % (Auto) 25.3, [place] % (Auto) 4.0, Eos % (Auto) 0.7, Baso % (Auto) 0.5, Absolute Neuts (auto) 5.6, Absolute Lymphs (auto) 2.04, Nucleated RBC % 0.2 03/23/22 04:27: Sodium 132 L, Potassium 4.2, Chloride 96 L, Carbon Dioxide 28.0, Anion Gap 8, BUN 16, Creatinine 1.16 H, Estim Creat Clear Calc 37.97, Est GFR (MDRD) Af Amer 62, Est GFR (MDRD) Non-Af 51 L, BUN/Creatinine Ratio 13.8, Glucose 289 H, Calcium 9.3, Total Bilirubin 0.50, AST 58 H, ALT 48, Alkaline Phosphatase 73, Total Protein 6.6, Albumin 3.0 L, Globulin 3.6, Albumin/Globulin Ratio 0.8 L 03/23/22 06:20: POC Glucose 280 H Assessment & Plan Assessment/Plan (1) Intervertebral disc disorder with radiculopathy of lumbar region: PLAN: 1. Chronic low back pain secondary to L3-L4 interspinous ligament strain as noted on MRI on 02/24/2022 -PT and OT following -Of note this patient is on care plan with the hospital with regard to treating her chronic back pain, patient has failed to follow-up appropriately outpatient. -Scheduled Lidoderm patch, gabapentin, Flexeril, Tylenol ordered for pain management. Gabapentin will be increased from 100 mg 3 times daily to 300 mg 3 times daily for nerve pain in bilateral legs -Case management consulted social work initiated pre-CERT for SNF placement due to weakness -CBC and CMP ordered daily 2. Hypokalemic -Potassium 4.0 today, resolved -CMP daily 3. Hyponatremia and hypochloremia -Sodium and chloride 132 and 99 today -Normal saline discontinued -CMP daily 4.Diabetes mellitus type 2 -Patient admits to not taking her medications at home for some time -ACH S blood sugars with sliding scale insulin ordered, sliding scale increased from high medium to high dosing -Patient initiated on Lantus 20 units daily 5. Anxiety -Continue Abilify, Celexa, Seroquel 6. Hypothyroidism -Continue levothyroxine 7. Chronic kidney disease stage IIIa -Creatinine consistent with baseline -CMP daily DVT prophylaxis-subcu heparin This patient was seen by Annabel Rivas NP-[facility] under the supervision of Dr. Shine. 12 minutes spent in clinical coordination of patient's plan of care.
[2022-03-23] MEDS: Insulin Glargine-YFGN 100 UNIT/ML Pen 20 UNIT SC (09:22)
[2022-03-23] MEDS: Lidocaine 5% Patch 2 PATCH TOPICAL (09:23)
--- NOTE | 2022-03-23 09:23 | PCM.PN.HOSP ---
Documented by User: FRANSISCO Babcock 03/23/22 09:32 Subjective Subjective Patient seen and examined. Patient sitting in bed eating breakfast no distress noted. Patient still reports tingling/crawling feeling in her legs. Patient's gabapentin was increased yesterday. Objective Data Objective Data Vital Signs: Vital Signs Temp Pulse Resp BP Pulse Ox 97.6 F L 88 16 111/67 93 03/23/22 09:09 03/23/22 09:09 03/23/22 09:09 03/23/22 09:09 03/23/22 09:09 Oxygen Flow Rate (L/min) 2 Oxygen Delivery Method Room Air Weight: 165 lb 5.547 oz Body Mass Index (BMI) 32.3 Intake & Output: Intake and Output for Last 24 Hours 03/21/22 03/22/22 03/23/22 23:59 23:59 23:59 Intake Total 4877.08 / 4877.08 1587.5 / 1587.5 Output Total 1500 / 1500 Balance 3377.08 / 3377.08 1587.5 / 1587.5 Lab / Micro Data Result Diagrams: 03/23/22 04:27 03/23/22 04:27 Labs: Laboratory Results - last 24 hr 03/22/22 11:34: POC Glucose 345 H 03/22/22 16:54: POC Glucose 342 H 03/22/22 22:17: POC Glucose 285 H 03/23/22 04:27: WBC 8.1, RBC 3.53 L, Hgb 11.0 L, Hct 31.6 L, MCV 89.5, MCH 31.2, MCHC 34.8, RDW Std Deviation 43.6, RDW Coeff of Anisa 13.3, Plt Count 217, MPV 10.1, Immature Gran % (Auto) 0.500, Neut % (Auto) 69.0, Lymph % (Auto) 25.3, [place] % (Auto) 4.0, Eos % (Auto) 0.7, Baso % (Auto) 0.5, Absolute Neuts (auto) 5.6, Absolute Lymphs (auto) 2.04, Nucleated RBC % 0.2 03/23/22 04:27: Sodium 132 L, Potassium 4.2, Chloride 96 L, Carbon Dioxide 28.0, Anion Gap 8, BUN 16, Creatinine 1.16 H, Estim Creat Clear Calc 37.97, Est GFR (MDRD) Af Amer 62, Est GFR (MDRD) Non-Af 51 L, BUN/Creatinine Ratio 13.8, Glucose 289 H, Calcium 9.3, Total Bilirubin 0.50, AST 58 H, ALT 48, Alkaline Phosphatase 73, Total Protein 6.6, Albumin 3.0 L, Globulin 3.6, Albumin/Globulin Ratio 0.8 L 03/23/22 06:20: POC Glucose 280 H Physical Exam Const alert, oriented x3 and no apparent distress General Appearance: cooperative HEENT normocephalic and head/scalp atraumatic Eyes conjunctivae normal and no scleral icterus Neck no lymphadenopathy and supple General: trachea midline Resp normal respiratory effort, normal air movement and clear to auscultation bilaterally Cardio regular rate, regular rhythm, S1 normal heart sound, S2 normal heart sound and peripheral pulses 2+ throughout GI normal to inspection, nondistended, normoactive bowel sounds, soft to palpation and non-tender Extremity normal to inspection, normal capillary refill and no clubbing, cyanosis or edema Skin General Skin Exam: no breakdown and turgor normal Lesions: no lesions Rashes: no rashes Neuro oriented x3, no focal motor deficits and no sensory deficits noted Sensorium / Orientation: awake and alert Speech: speech normal Sensory Exam: extremities light-touch: normal Motor Exam: general weakness Psych cooperative Appearance: appropriate Assessment & Plan Assessment/Plan (1) Intervertebral disc disorder with radiculopathy of lumbar region: PLAN: 1. Chronic low back pain secondary to L3-L4 interspinous ligament strain as noted on MRI on 02/24/2022 -PT and OT following -Of note this patient is on care plan with the hospital with regard to treating her chronic back pain, patient has failed to follow-up appropriately outpatient. -Scheduled Lidoderm patch, gabapentin, Flexeril, Tylenol ordered for pain management. Gabapentin increased to 300 mg 3 times daily 03/22/2022 -Case management consulted social work initiated pre-CERT for SNF placement due to weakness -CBC and CMP ordered daily 2. Hyponatremia and hypochloremia -Sodium and chloride 132 and 96 today -CMP daily 4.Diabetes mellitus type 2 -Patient admits to not taking her medications at home for some time -ACH S blood sugars with sliding scale insulin ordered, sliding scale increased from high medium to high dosing -Patient initiated on Lantus 20 units daily 03/21/2022, increased to 30 units daily 03/23/2022 as patient was still having blood sugars in the 200-300s 5. Anxiety -Continue Abilify, Celexa, Seroquel 6. Hypothyroidism -Continue levothyroxine 7. Chronic kidney disease stage IIIa -Creatinine consistent with baseline -CMP daily DVT prophylaxis-subcu heparin This patient was seen by DORIS BabcockC under the supervision of Dr. Prieto. 14 minutes spent in clinical coordination of patient's plan of care. Documented by User: Dr. Ramez Prieto MD 03/23/22 12:32 Subjective Subjective Follow-up for chronic back pain, leg pain, debility, cannot take care of herself. Objective Data Lab / Micro Data Result Diagrams: 03/23/22 04:27 03/23/22 04:27 Physical Exam Narrative General: Alert, Oriented x3, Cooperative HEENT: Atraumatic, PERRLA, EOMI, Normocephalic Oral: No Gingival or Mucosal Lesions/ Ulcerations Neck: Supple, No JVD, Negative Carotid Bruits Lungs: Air entry diminished in bilateral lung bases. No crepitation/rhonchi Cardiovascular: Regular rate, Regular Rhythm, Normal S1, Normal S2, No murmurs Abdomen: Bowel Sounds Present, Soft, Non Tender, Non-Distended : No renal angle tenderness. No suprapubic tenderness. Extremities: No edema, Capillary Refill Less than 3 Seconds Skin: No rashes, No breakdown Musculoskeletal: Tenderness over both legs, neuropathy pain Neurological: Cranial nerves II-XII grossly intact, DTR 2+/4 and Symmetrical, Psych/Mental Status: Flat affect. Assessment & Plan Assessment/Plan (1) Intervertebral disc disorder with radiculopathy of lumbar region: PLAN: This patient was seen in conjunction with JED Jin. I have independently interviewed and examined the patient and reviewed pertinent history, examination findings, laboratory and plan of management. I have reviewed the note and agree with the documented findings with the few additional points. In brief, patient is admitted for acute on chronic back pain. I have discussed my assessment with JED Jin and orders have been reviewed. Lumbar MRI shows findings consistent with L3-4 interspinous ligament strain. No compressive disc disease, canal or high-grade foraminal stenosis. Mild degenerative changes. Thoracic spine MRI reported normal. PT and OT ordered. On Lidoderm patch. Diabetes mellitus type 2 with uncontrolled hyperglycemia complicated with peripheral neuropathy: Scheduled Lantus and Humalog insulin. Dose titrated up according to Accu-Cheks. Hyponatremia: Hypokalemia corrected. Last potassium 4.2. CKD stage III and hypertension, hypothyroidism and physical deconditioning debility. Patient other comorbidities are anxiety and depression. Charges/Coding Visit Charges Inpatient E&M: 52880 Subs Hosp L2
[2022-03-23] MEDS: ALPRAZolam 0.5 MG Tablet PO (09:31)
[2022-03-23] MEDS: Gabapentin 300 MG Capsule PO ×3 (09:31→16:40)
[2022-03-23] MEDS: Insulin Glargine-YFGN 100 UNIT/ML Pen 10 UNIT SC (10:57)
[2022-03-23 11:06] LABS: Bedside Glucose 192 mg/dL (74-106)
[2022-03-23] MEDS: 0.9% Saline Lock 10 ML Syringe IV (12:48)
[2022-03-23 16:00] LABS: Bedside Glucose 275 mg/dL (74-106)
[2022-03-23] MEDS: ARIPiprazole 5 MG Tablet 15 MG PO (21:42)
[2022-03-23] MEDS: QUEtiapine 100 MG Tablet PO (21:43)
[2022-03-23 22:35] LABS: Bedside Glucose 333 mg/dL (74-106)
[2022-03-24 03:45] VITALS: BP 108/68; PULSE 88; RESP 16; TEMP 36.6; O2SAT 95
[2022-03-24 04:37] LABS: Absolute Lymphocyte Count 2.28 X10^3/uL (0.83-4.51); Absolute Neutrophil Count 4.8 X10^3/uL (2.0-7.7); Basophil# 0.03 X10^3/uL; Basophil% 0.4 % (0-1); Eosinophil# 0.11 X10^3/uL; Eosinophils% 1.4 % (0-5); Hematocrit 30.4 % (37-47); Hemoglobin 10.6 g/dL (12.0-15.0); Lymphocyte # 2.28 X10^3/ul (0.83-4.51); Mean Corp Hgb Conc 34.9 g/dL (32-36); Mean Corpuscular Hgb 31.2 pg (27.0-32.0); Mean Corpuscular Volume 89.4 fL (81-99); Mean Platelet Vol. 9.9 fl (6.2-12.0); Monocyte# 0.31 X10^3/uL; Monocyte% 4.1 % (0-10); NRBC Flagged by Analyzer 0 % (0-5); Neutrophil # 4.82 X10^3/uL (2.7-7.7); Neutrophil % 63.3 % (47-70); Platelet Count 208 K/mm3 (150-450); RBC Distribution Width CV 13.5 % (11.6-14.6); RBC Distribution Width SD 44.5 fl (35.1-43.9); White Blood Count 7.6 K/mm3 (4.4-11.0)
[2022-03-24 05:00] LABS: ALB/GLOB Ratio 0.8 RATIO (0.9-2.4); AST(SGOT) 62 U/L (15-37); Alanine Aminotransfer ALT/SGPT 56 U/L (13-56); Albumin, Serum 2.9 g/dL (3.2-5.0); Alkaline Phosphatase 72 U/L (45-117); Anion Gap 7 (5-15); BUN 17 mg/dL (7-18); BUN/Creat Ratio 13.6 RATIO (10-20); Calcium,Total 9.8 mg/dL (8.5-10.1); Chloride 96 mmol/L (98-107); Creatinine, Serum 1.25 mg/dL (0.55-1.02); EST Glomerular Filtration Rate 47 mL/min (>60); Est Glom Filt Rate - Afr Amer 57 mL/min (>60); Estimated Creatinine Clearance 35.24 ml/min; Globulin 3.7 g/dL (2.2-4.2); Glucose 205 mg/dL (74-106); Potassium 3.6 mmol/L (3.5-5.1); Protein, Total 6.6 g/dL (6.4-8.2); Sodium Level 132 mmol/L (136-145)
[2022-03-24] MEDS: Heparin Injection (Vial) 5,000 UNIT/ML VIAL 5000 UNIT SC ×3 (05:48→21:20)
[2022-03-24] MEDS: Acetaminophen 500 MG Tablet 1000 MG PO ×3 (05:48→21:29)
[2022-03-24] MEDS: 0.9% Saline Lock 10 ML Syringe IV ×2 (05:52→21:18)
[2022-03-24 08:01] LABS: Bedside Glucose 183 mg/dL (74-106)
[2022-03-24] MEDS: Insulin Lispro 100 UNIT/ML INSULN.PEN SC ×5 (08:18→21:24)
[2022-03-24] MEDS: Insulin Glargine-YFGN 100 UNIT/ML Pen 35 UNIT SC (08:19)
--- NOTE | 2022-03-24 08:20 | NURSING ---
Pt only given 1 unit insulin on sliding scale along with 5 units of scheduled per pt request for a total of 6 units. Pt was also given long acting insulin at the same time.
[2022-03-24] MEDS: Gabapentin 300 MG Capsule PO ×3 (08:24→16:42)
[2022-03-24] MEDS: ALPRAZolam 0.5 MG Tablet PO (08:55)
[2022-03-24] MEDS: Lidocaine 5% Patch 2 PATCH TOPICAL (08:56)
[2022-03-24 09:06] VITALS: BP 128/79; PULSE 91; RESP 17; TEMP 36.6; O2SAT 97
[2022-03-24 09:07] VITALS: O2SAT 96
--- NOTE | 2022-03-24 09:44 | CASEMGMT ---
GINNA spoke with [facility] in TCU. They should be able to take patient, but are waiting on final okay from pharmacy. Delores Devries [employer] PROJECT MANAGER ANJEL
--- NOTE | 2022-03-24 10:01 | PCM.TXEXTCAR ---
Diet 03/20/22 18:18 Diet: Regular - General Food consistency:: Regular Liquid Consistency:: Regular/Thin Routine Orders/Code Status Suppository Type: Dulcolax 10mg Suppository Frequency: Daily PRN Routine Lab Work: BMP (In 1 week) Code Status: Full Code Wound(s) left elbow: Wound Type: Abrasion right forearm: Wound Type: scabbed over area Therapies Weight Bearing: Weight bearing as tolerated Extremity Affected:: Bilateral Lower Physical Therapy: Eval and Treat Occupational Therapy: Eval and Treat Speech Therapy: Eval and Treat Problem/Diagnosis (1) Intervertebral disc disorder with radiculopathy of lumbar region: Status: Chronic Allergies/Procedures Done in Hospital Allergies celecoxib [From Celebrex] Allergy (Verified 03/20/22 15:44) Itching ciprofloxacin [From Cipro] Allergy (Verified 03/20/22 15:44) Swelling ciprofloxacin HCl [From Cipro] Allergy (Verified 03/20/22 15:44) Swelling codeine Allergy (Verified 03/20/22 15:44) Hives ibuprofen Allergy (Verified 03/20/22 15:44) Hives naproxen Allergy (Verified 03/20/22 15:44) Hives Penicillins Allergy (Verified 03/20/22 15:44) Hives tramadol HCl [From Ultram] Allergy (Verified 03/20/22 15:44) Hives ketorolac [From Toradol] Adverse Reaction (Verified 03/20/22 15:44) Swelling Type of Care/Length of Stay Estimated LOS: Convalescent Care Less Than 30 days Type of Care Needed: Skilled Rehab Potential: Good Prognosis: Good Additional Orders/Day of Discharge Day of Discharge: 03/24/22 Discharge Plan Admission Admit Date/Time: 03/20/22 17:20 Primary Reason for Your Visit: Acute on chronic back pain Attending Provider: Ramez Prieto Primary Care Provider: Jarred Lopez Consulting Providers: Kathia Shine Discharge Orders/Prescriptions Prescriptions: New cyclobenzaprine 10 mg Tablet 10 mg PO TID PRN (Reason: back spasm) Qty: 0 RF: 0 insulin lispro [Humalog KwikPen Insulin] 100 unit/mL Insulin Pen See Protocol unit subcut ACHS Qty: 0 RF: 0 insulin glargine-yfgn 100 unit/mL (3 mL) Insulin Pen 35 unit subcut DAILY Qty: 0 RF: 0 insulin lispro [Humalog KwikPen Insulin] 100 unit/mL Insulin Pen 10 unit subcut TIDAC Qty: 0 RF: 0 lidocaine 5 % Adhesive Patch,Medicated 2 patch topical DAILY PRN (Reason: back pain) Qty: 30 RF: 0 gabapentin 300 mg Capsule 300 mg PO TIDCM Qty: 60 RF: 0 Continued rizatriptan 10 tablet 10 mg PO PRN PRN (Reason: Migraine Symptoms) RF: 0 quetiapine [Seroquel] 100 mg Tablet 100 mg PO QHS RF: 0 aripiprazole [Abilify] 15 mg Tablet 15 mg PO QHS RF: 0 (DME) pen needle,diabetic, disp unit 29 gauge x 1/2 needle See Rx Instructions .ROUTE .MEDSUPPLY Qty: 100 RF: 0 alprazolam 0.5 mg tablet 0.5 mg PO DAILY RF: 0 Referrals / Follow Up: Jacqueline Renteria MD [STAFF PHYSICIAN] - Within 2 Weeks (for back pain) Jarred Lopez MD [Primary Care Provider] - Within 2 Weeks Disposition Disposition (needs filled in before D/C Order can be placed): Shelter Facility
[2022-03-24] MEDS: Insulin Lispro 100 UNIT/ML INSULN.PEN 10 UNIT SC ×2 (11:47→16:43)
[2022-03-24 11:55] LABS: Bedside Glucose 195 mg/dL (74-106)
--- NOTE | 2022-03-24 12:06 | PN.HOSP_ITS ---
Documented by User: FRANSISCO Babcock 03/24/22 12:08 Subjective Subjective Patient seen and examined. Patient lying in bed no distress noted. Patient states that she is having less pain every day but continues to have some numbness and tingling to her bilateral lower extremities as well as weakness. Objective Data Objective Data Vital Signs: Vital Signs Temp Pulse Resp BP Pulse Ox 97.8 F 91 17 128/79 H 96 03/24/22 09:06 03/24/22 09:06 03/24/22 09:06 03/24/22 09:06 03/24/22 09:07 Oxygen Flow Rate (L/min) 2 Oxygen Delivery Method Room Air Weight: 165 lb 5.547 oz Body Mass Index (BMI) 32.3 Intake & Output: Intake and Output for Last 24 Hours 03/22/22 03/23/22 03/24/22 23:59 23:59 23:59 Intake Total 1587.5 / 1587.5 1050 / 1050 100 / 100 Output Total 700 / 700 Balance 1587.5 / 1587.5 1050 / 1050 -600 / -600 Lab / Micro Data Result Diagrams: 03/24/22 04:02 03/24/22 04:02 Labs: Laboratory Results - last 24 hr 03/23/22 15:42: POC Glucose 275 H 03/23/22 21:40: POC Glucose 333 H 03/24/22 04:02: WBC 7.6, RBC 3.40 L, Hgb 10.6 L, Hct 30.4 L, MCV 89.4, MCH 31.2, MCHC 34.9, RDW Std Deviation 44.5 H, RDW Coeff of Anisa 13.5, Plt Count 208, MPV 9.9, Immature Gran % (Auto) 0.800, Neut % (Auto) 63.3, Lymph % (Auto) 30.0, [place] % (Auto) 4.1, Eos % (Auto) 1.4, Baso % (Auto) 0.4, Absolute Neuts (auto) 4.8, Absolute Lymphs (auto) 2.28, Nucleated RBC % 0 03/24/22 04:02: Sodium 132 L, Potassium 3.6, Chloride 96 L, Carbon Dioxide 29.0, Anion Gap 7, BUN 17, Creatinine 1.25 H, Estim Creat Clear Calc 35.24, Est GFR (MDRD) Af Amer 57 L, Est GFR (MDRD) Non-Af 47 L, BUN/Creatinine Ratio 13.6, Glucose 205 H, Calcium 9.8, Total Bilirubin 0.40, AST 62 H, ALT 56, Alkaline Phosphatase 72, Total Protein 6.6, Albumin 2.9 L, Globulin 3.7, Albumin/Globulin Ratio 0.8 L 03/24/22 07:57: POC Glucose 183 H 03/24/22 11:45: POC Glucose 195 H Physical Exam Const alert, oriented x3 and no apparent distress General Appearance: cooperative HEENT normocephalic and head/scalp atraumatic Eyes conjunctivae normal and no scleral icterus Neck no lymphadenopathy and supple General: trachea midline Resp normal respiratory effort, normal air movement and clear to auscultation bilaterally Cardio regular rate, regular rhythm, S1 normal heart sound, S2 normal heart sound and peripheral pulses 2+ throughout GI normal to inspection, nondistended, normoactive bowel sounds, soft to palpation and non-tender Extremity normal to inspection, normal capillary refill and no clubbing, cyanosis or edema Skin General Skin Exam: no breakdown and turgor normal Lesions: no lesions Rashes: no rashes Neuro oriented x3, no focal motor deficits and no sensory deficits noted Sensorium / Orientation: awake and alert Speech: speech normal Sensory Exam: extremities light-touch: normal Motor Exam: general weakness Psych cooperative Appearance: appropriate Assessment & Plan Assessment/Plan (1) Intervertebral disc disorder with radiculopathy of lumbar region: PLAN: 1. Chronic low back pain secondary to L3-L4 interspinous ligament strain as noted on MRI on 02/24/2022 -PT and OT following -Of note this patient is on care plan with the hospital with regard to treating her chronic back pain, patient has failed to follow-up appropriately outpatient. -Scheduled Lidoderm patch, gabapentin, Flexeril, Tylenol ordered for pain management. Gabapentin increased to 300 mg 3 times daily 03/22/2022, pt tolerating well, has improved pain -Case management consulted social work initiated pre-CERT for SNF placement due to weakness -CBC and CMP ordered daily 2. Hyponatremia and hypochloremia -Sodium and chloride 132 and 96 today -CMP daily 4.Diabetes mellitus type 2 -Patient admits to not taking her medications at home for some time -ACH S blood sugars with sliding scale insulin ordered, sliding scale increased from high medium to high dosing -Patient initiated on Lantus 20 units daily 03/21/2022, increased to 30 units daily 03/23/2022 as patient was still having blood sugars in the 200-300s 5. Anxiety -Continue Abilify, Celexa, Seroquel 6. Hypothyroidism -Continue levothyroxine 7. Chronic kidney disease stage IIIa -Creatinine consistent with baseline -CMP daily Discharge planning-patient planned to go to custodial facility, awaiting pre-CERT DVT prophylaxis-subcu heparin This patient was seen by Annabel Rivas NP-C under the supervision of Dr. Prieto. 12 minutes spent in clinical coordination of patient's plan of care. Documented by User: Dr. Ramez Prieto MD 03/24/22 16:21 Objective Data Lab / Micro Data Result Diagrams: 03/24/22 04:02 03/24/22 04:02 Physical Exam Narrative Seen and examined. Patient complains of weakness and pain in the back. General: Alert, Oriented x3, Cooperative HEENT: Atraumatic, PERRLA, EOMI, Normocephalic Oral: No Gingival or Mucosal Lesions/ Ulcerations Neck: Supple, No JVD, Negative Carotid Bruits Lungs: Air entry diminished in bilateral lung bases. No crepitation/rhonchi Cardiovascular: Regular rate, Regular Rhythm, Normal S1, Normal S2, No murmurs Abdomen: Bowel Sounds Present, Soft, Non Tender, Non-Distended : No renal angle tenderness. No suprapubic tenderness. Extremities: No edema, Capillary Refill Less than 3 Seconds Skin: No rashes, No breakdown Musculoskeletal: Tenderness over both legs, neuropathy pain. Muscle strength 4/5 at major joints of lower extremities Neurological: Cranial nerves II-XII grossly intact, DTR 2+/4 and Symmetrical, Psych/Mental Status: Flat affect. Assessment & Plan Assessment/Plan (1) Intervertebral disc disorder with radiculopathy of lumbar region: PLAN: This patient was seen in conjunction with JED Jin. I have independently interviewed and examined the patient and reviewed pertinent history, examination findings, laboratory and plan of management. I have reviewed the note and agree with the documented findings with the few additional points. In brief, patient is admitted for acute on chronic back pain. Lumbar MRI shows findings consistent with L3-4 interspinous ligament strain. No compressive disc disease, canal or high-grade foraminal stenosis. Mild degenerative changes. Thoracic spine MRI reported normal. PT and OT ordered. On Lidoderm patch. Pre-CERT pending for detention. Diabetes mellitus type 2 with uncontrolled hyperglycemia complicated with peripheral neuropathy: Scheduled Lantus and Humalog insulin. Dose titrated up according to Accu-Cheks. 03/24: Accu-Chek levels are high. Lantus and Humalog insulin titrated up. Hyponatremia: Hypokalemia corrected. Last potassium 4.2. Isovolemic hyponatremia, sodium 132. Since this is her baseline. CKD stage III and hypertension, hypothyroidism and physical deconditioning debility. Patient other comorbidities are anxiety and depression. I have discussed my assessment with JED Jin and orders have been reviewed. Total time of the visit including total time spent in counseling or coordination of care, (more than 50% of the total time, spent in obtaining medical information from nurses and other ancillary care providers,explaining to the patient about labs, imaging, diagnosis and management), , review of labs and imaging is 37 minutes. 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 Charges/Coding Visit Charges Inpatient E&M: 49686 Subs Hosp L2
--- NOTE | 2022-03-24 13:08 | CASEMGMT ---
GINNA spoke with Raisa in TCU and she submitted information to insurance to obtain pre-cert. GINNA notified patient that [facility] is able to take her once insurance approves her. Plan: [facility] pending insurance approval. Delores HOBBS
[2022-03-24 13:44] VITALS: BP 117/70; PULSE 85; RESP 17; TEMP 36.6; O2SAT 95
[2022-03-24] MEDS: cycloBENZAPRine HCl 10 MG Tablet PO ×2 (13:48→21:18)
[2022-03-24 16:51] LABS: Bedside Glucose 206 mg/dL (74-106)
[2022-03-24 17:48] VITALS: BP 126/67; PULSE 85; RESP 17; TEMP 36.5; O2SAT 95
[2022-03-24 21:16] VITALS: BP 118/76; PULSE 87; RESP 18; TEMP 36.2; O2SAT 97
[2022-03-24] MEDS: ARIPiprazole 5 MG Tablet 15 MG PO (21:18)
[2022-03-24] MEDS: QUEtiapine 100 MG Tablet PO (21:18)
[2022-03-24 22:51] LABS: Bedside Glucose 333 mg/dL (74-106)
[2022-03-25] VITALS (9 sets, daily range): BP systolic 85–116; BP diastolic 61–73; PULSE 78–103; RESP 16–18; TEMP 36.4–37.2; O2SAT 88–94
[2022-03-25] MEDS: Acetaminophen 500 MG Tablet 1000 MG PO ×2 (05:36→13:23)
[2022-03-25] MEDS: Heparin Injection (Vial) 5,000 UNIT/ML VIAL 5000 UNIT SC ×3 (05:37→22:26)
[2022-03-25] MEDS: cycloBENZAPRine HCl 10 MG Tablet PO ×3 (05:37→22:24)
[2022-03-25 05:56] LABS: Absolute Lymphocyte Count 1.86 X10^3/uL (0.83-4.51); Absolute Neutrophil Count 3.7 X10^3/uL (2.0-7.7); Basophil# 0.03 X10^3/uL; Basophil% 0.5 % (0-1); Eosinophil# 0.07 X10^3/uL; Eosinophils% 1.2 % (0-5); Hematocrit 31.6 % (37-47); Hemoglobin 10.8 g/dL (12.0-15.0); Lymphocyte # 1.86 X10^3/ul (0.83-4.51); Lymphocyte % 31.1 % (19-41); Mean Corp Hgb Conc 34.2 g/dL (32-36); Mean Corpuscular Volume 90.8 fL (81-99); Mean Platelet Vol. 9.9 fl (6.2-12.0); Monocyte# 0.31 X10^3/uL; Monocyte% 5.2 % (0-10); NRBC Flagged by Analyzer 0 % (0-5); Neutrophil # 3.65 X10^3/uL (2.7-7.7); Neutrophil % 60.8 % (47-70); Platelet Count 222 K/mm3 (150-450); RBC Distribution Width CV 13.3 % (11.6-14.6); RBC Distribution Width SD 44.4 fl (35.1-43.9); Red Blood Count 3.48 M/mm3 (4.2-5.4)
[2022-03-25 06:32] LABS: Anion Gap 3 (5-15); BUN 16 mg/dL (7-18); BUN/Creat Ratio 14.2 RATIO (10-20); Calcium,Total 9.1 mg/dL (8.5-10.1); Chloride 98 mmol/L (98-107); Creatinine, Serum 1.13 mg/dL (0.55-1.02); EST Glomerular Filtration Rate 52 mL/min (>60); Est Glom Filt Rate - Afr Amer 64 mL/min (>60); Estimated Creatinine Clearance 38.98 ml/min; Glucose 211 mg/dL (74-106); Potassium 3.8 mmol/L (3.5-5.1); Sodium Level 133 mmol/L (136-145)
[2022-03-25 07:50] LABS: Bedside Glucose 181 mg/dL (74-106)
[2022-03-25] MEDS: ALPRAZolam 0.5 MG Tablet PO (08:31)
[2022-03-25] MEDS: Gabapentin 300 MG Capsule PO ×3 (08:31→16:09)
[2022-03-25] MEDS: Insulin Lispro 100 UNIT/ML INSULN.PEN SC ×3 (08:31→17:14)
[2022-03-25] MEDS: Insulin Lispro 100 UNIT/ML INSULN.PEN 10 UNIT SC ×3 (08:32→17:14)
[2022-03-25] MEDS: Insulin Glargine-YFGN 100 UNIT/ML Pen 35 UNIT SC (08:32)
[2022-03-25 12:15] LABS: Bedside Glucose 291 mg/dL (74-106)
--- NOTE | 2022-03-25 15:20 | PN.HOSP_ITS ---
Documented by User: FRANSISCO Babcock 03/25/22 15:24 Subjective Subjective Patient seen and examined. Patient lying in bed no distress noted. Patient awaiting pre-CERT to go to [facility] Objective Data Objective Data Vital Signs: Vital Signs Temp Pulse Resp BP Pulse Ox 97.5 F L 103 H 16 110/70 92 03/25/22 11:37 03/25/22 11:37 03/25/22 11:37 03/25/22 11:37 03/25/22 11:37 Oxygen Flow Rate (L/min) 3 Oxygen Delivery Method Room Air Weight: 165 lb 5.547 oz Body Mass Index (BMI) 32.3 Intake & Output: Intake and Output for Last 24 Hours 03/23/22 03/24/22 03/25/22 23:59 23:59 23:59 Intake Total 1050 / 1050 1150 / 1150 850 / 850 Output Total 3300 / 4300 2200 / 2200 Balance 1050 / 1050 -2150 / -3150 -1350 / -1350 Lab / Micro Data Result Diagrams: 03/25/22 05:31 03/25/22 05:31 Labs: Laboratory Results - last 24 hr 03/24/22 16:40: POC Glucose 206 H 03/24/22 21:24: POC Glucose 333 H 03/25/22 05:31: WBC 6.0, RBC 3.48 L, Hgb 10.8 L, Hct 31.6 L, MCV 90.8, MCH 31.0, MCHC 34.2, RDW Std Deviation 44.4 H, RDW Coeff of Anisa 13.3, Plt Count 222, MPV 9.9, Immature Gran % (Auto) 1.200 H, Neut % (Auto) 60.8, Lymph % (Auto) 31.1, [place] % (Auto) 5.2, Eos % (Auto) 1.2, Baso % (Auto) 0.5, Absolute Neuts (auto) 3.7, Absolute Lymphs (auto) 1.86, Nucleated RBC % 0 03/25/22 05:31: Sodium 133 L, Potassium 3.8, Chloride 98, Carbon Dioxide 32.0, Anion Gap 3 L, BUN 16, Creatinine 1.13 H, Estim Creat Clear Calc 38.98, Est GFR (MDRD) Af Amer 64, Est GFR (MDRD) Non-Af 52 L, BUN/Creatinine Ratio 14.2, Glucose 211 H, Calcium 9.1 03/25/22 07:45: POC Glucose 181 H 03/25/22 11:41: POC Glucose 291 H Physical Exam Const alert, oriented x3 and no apparent distress General Appearance: cooperative HEENT normocephalic and head/scalp atraumatic Eyes conjunctivae normal and no scleral icterus Neck no lymphadenopathy and supple General: trachea midline Resp normal respiratory effort, normal air movement and clear to auscultation bilaterally Cardio regular rate, regular rhythm, S1 normal heart sound, S2 normal heart sound and peripheral pulses 2+ throughout GI normal to inspection, nondistended, normoactive bowel sounds, soft to palpation and non-tender Extremity normal to inspection, normal capillary refill and no clubbing, cyanosis or edema Skin General Skin Exam: no breakdown and turgor normal Lesions: no lesions Rashes: no rashes Neuro oriented x3, no focal motor deficits and no sensory deficits noted Sensorium / Orientation: awake and alert Speech: speech normal Sensory Exam: extremities light-touch: normal Motor Exam: general weakness Psych cooperative Appearance: appropriate Assessment & Plan Assessment/Plan (1) HTN (hypertension): QUALIFIERS: Hypertension type: essential hypertension Qualified Code(s): I10 - Essential (primary) hypertension (2) Pure hypercholesterolemia: (3) Intervertebral disc disorder with radiculopathy of lumbar region: PLAN: 1. Chronic low back pain secondary to L3-L4 interspinous ligament strain as noted on MRI on 02/24/2022 -PT and OT following -Of note this patient is on care plan with the hospital with regard to treating her chronic back pain, patient has failed to follow-up appropriately outpatient. -Scheduled Lidoderm patch, gabapentin, Flexeril, Tylenol ordered for pain management. Gabapentin increased to 300 mg 3 times daily 03/22/2022, pt tolerating well, has improved pain -Case management consulted social work initiated pre-CERT for SNF placement due to weakness -CBC and CMP ordered daily 2. Hyponatremia and hypochloremia -Sodium and chloride 133 and 98 today -CMP daily 3.Diabetes mellitus type 2 -Patient admits to not taking her medications at home for some time -ACH S blood sugars with sliding scale insulin ordered, sliding scale increased from high medium to high dosing -Patient initiated on Lantus 20 units daily 03/21/2022, increased to 30 units daily 03/23/2022, increased to 35 units daily 03/24/22 4. Anxiety -Continue Abilify, Celexa, Seroquel 5. Hypothyroidism -Continue levothyroxine 6. Chronic kidney disease stage IIIa -Creatinine consistent with baseline -CMP daily Discharge planning-[facility], awaiting pre-CERT DVT prophylaxis-subcu heparin This patient was seen by Annabel Rivas NP-Ze[facility] under the supervision of Dr. Prieto. 15 minutes spent in clinical coordination of patient's plan of care. Documented by User: Dr. Ramez Prieto MD 03/25/22 16:46 Objective Data Lab / Micro Data Result Diagrams: 03/25/22 05:31 03/25/22 05:31 Physical Exam Narrative Seen and examined. Patient complains of weakness and pain in the back. Pain is somewhat better. General: Alert, Oriented x3, Cooperative HEENT: Atraumatic, PERRLA, EOMI, Normocephalic Oral: No Gingival or Mucosal Lesions/ Ulcerations Neck: Supple, No JVD, Negative Carotid Bruits Lungs: Air entry diminished in bilateral lung bases. No crepitation/rhonchi Cardiovascular: Regular rate, Regular Rhythm, Normal S1, Normal S2, No murmurs Abdomen: Bowel Sounds Present, Soft, Non Tender, Non-Distended : No renal angle tenderness. No suprapubic tenderness. Extremities: No edema, Capillary Refill Less than 3 Seconds Skin: No rashes, No breakdown Musculoskeletal: Mild tenderness over lumbar spine and paraspinal region. Tenderness over both legs, neuropathy pain. Muscle strength 4/5 at major joints of lower extremities Neurological: Cranial nerves II-XII grossly intact, DTR 2+/4 and Symmetrical, Psych/Mental Status: Flat affect. Assessment & Plan Assessment/Plan (1) Intervertebral disc disorder with radiculopathy of lumbar region: PLAN: This patient was seen in conjunction with JED Jin. I have independently interviewed and examined the patient and reviewed pertinent history, examination findings, laboratory and plan of management. I have reviewed the note and agree with the documented findings with the few additional points. In brief, patient is admitted for acute on chronic back pain. Lumbar MRI shows findings consistent with L3-4 interspinous ligament strain. No compressive disc disease, canal or high-grade foraminal stenosis. Mild degenerative changes. Thoracic spine MRI reported normal. PT and OT ordered. On Lidoderm patch. Pre-CERT pending for [facility]. Diabetes mellitus type 2 with uncontrolled hyperglycemia complicated with peripheral neuropathy: Scheduled Lantus and Humalog insulin. Dose titrated up according to Accu-Cheks. 03/24: Accu-Chek levels are high. Lantus and Humalog insulin titrated up. Hyponatremia: Hypokalemia corrected. Last potassium 4.2. Isovolemic hyponatremia, sodium 132. Since this is her baseline. CKD stage III and hypertension, hypothyroidism and physical deconditioning debility. Patient other comorbidities are anxiety and depression. I have discussed my assessment with JED Jin and orders have been reviewed. Total time of the visit including total time spent in counseling or coordination of care, (more than 50% of the total time, spent in obtaining medical information from nurses and other ancillary care providers,explaining to the patient about labs, imaging, diagnosis and management), , review of labs and imaging is 37 minutes. I spent 20 minutes in GAMING DEALER spent 15 minutes. Charges/Coding Visit Charges Inpatient E&M: 35987 Subs Hosp L2
[2022-03-25 16:45] LABS: Bedside Glucose 227 mg/dL (74-106)
[2022-03-25] MEDS: 0.9% Saline Lock 10 ML Syringe IV (22:24)
[2022-03-25] MEDS: ARIPiprazole 5 MG Tablet 15 MG PO (22:25)
[2022-03-25] MEDS: QUEtiapine 100 MG Tablet PO (22:31)
[2022-03-26] VITALS (8 sets, daily range): BP systolic 95–126; BP diastolic 56–93; PULSE 86–97; RESP 12–18; TEMP 35.8–36.9; O2SAT 92–99
[2022-03-26 00:20] LABS: Bedside Glucose 111 mg/dL (74-106)
[2022-03-26] MEDS: Heparin Injection (Vial) 5,000 UNIT/ML VIAL 5000 UNIT SC ×3 (05:28→21:22)
[2022-03-26] MEDS: cycloBENZAPRine HCl 10 MG Tablet PO ×3 (05:29→21:20)
[2022-03-26] MEDS: Polyethylene Glycol 3350 17 GM PACKET PO (06:26)
[2022-03-26 06:54] LABS: Absolute Lymphocyte Count 2.14 X10^3/uL (0.83-4.51); Absolute Neutrophil Count 4.2 X10^3/uL (2.0-7.7); Basophil# 0.04 X10^3/uL; Basophil% 0.6 % (0-1); Eosinophils% 1.4 % (0-5); Hematocrit 32.3 % (37-47); Hemoglobin 10.6 g/dL (12.0-15.0); Lymphocyte # 2.14 X10^3/ul (0.83-4.51); Lymphocyte % 30.7 % (19-41); Mean Corp Hgb Conc 32.8 g/dL (32-36); Mean Corpuscular Hgb 30.5 pg (27.0-32.0); Mean Corpuscular Volume 92.8 fL (81-99); Mean Platelet Vol. 10.3 fl (6.2-12.0); Monocyte# 0.44 X10^3/uL; Monocyte% 6.3 % (0-10); NRBC Flagged by Analyzer 0 % (0-5); Neutrophil # 4.19 X10^3/uL (2.7-7.7); Platelet Count 249 K/mm3 (150-450); RBC Distribution Width CV 13.5 % (11.6-14.6); RBC Distribution Width SD 45.7 fl (35.1-43.9); Red Blood Count 3.48 M/mm3 (4.2-5.4)
[2022-03-26 07:16] LABS: Anion Gap 7 (5-15); BUN 17 mg/dL (7-18); BUN/Creat Ratio 13.3 RATIO (10-20); Calcium,Total 9.7 mg/dL (8.5-10.1); Chloride 97 mmol/L (98-107); Creatinine, Serum 1.28 mg/dL (0.55-1.02); EST Glomerular Filtration Rate 45 mL/min (>60); Est Glom Filt Rate - Afr Amer 55 mL/min (>60); Estimated Creatinine Clearance 34.41 ml/min; Glucose 106 mg/dL (74-106); Potassium 3.7 mmol/L (3.5-5.1); Sodium Level 133 mmol/L (136-145)
[2022-03-26] MEDS: ALPRAZolam 0.5 MG Tablet PO (08:07)
[2022-03-26] MEDS: Gabapentin 300 MG Capsule PO ×3 (08:07→16:23)
[2022-03-26 08:51] LABS: Bedside Glucose 113 mg/dL (74-106)
--- NOTE | 2022-03-26 10:10 | CASEMGMT ---
Karly in TCU stated Nicolejosé manuel is saying patient's coverage 03-25-22. Patient's chart is also listing that she has [facility] Plan. [facility] does not take Medicaid. However, if patient's insurance switched to [facility] she could still go to TCU. Patient does not have her cards with her and she does not know her coverage. SW did send a referral to patient's third choice, [facility] as patient's second choice [facility] does not take [facility]. Delores Devries PURCHASING COORDINATOR ANJEL
--- NOTE | 2022-03-26 10:39 | CASEMGMT ---
GINNA checked with [facility] registration and it was discovered that patient now has [place] [employer]vantage. [facility] does not take [place]. GINNA called Rachel at [facility] and canceled the referral. GINNA called [facility] back and asked Karly to please start the pre-cert for patient with [place]. Plan: [facility] pending insurance approval. There is a delay in obtaining pre-cert as patient's insurance switched 03-25-22 from [employer] to [employer]. Delores Devries ROBOT TECHNICIANPaola HOBBS
[2022-03-26 11:21] LABS: Bedside Glucose 135 mg/dL (74-106)
--- NOTE | 2022-03-26 11:56 | CASEMGMT ---
TCU is now not able to take patient. GINNA called [facility] and left a voice mail for Laura regarding referral. GINNA also faxed referral. Delores Devries MSW ANJEL
[2022-03-26] MEDS: Insulin Glargine-YFGN 100 UNIT/ML Pen 35 UNIT SC (12:03)
[2022-03-26] MEDS: Insulin Lispro 100 UNIT/ML INSULN.PEN 10 UNIT SC ×2 (12:03→16:20)
--- NOTE | 2022-03-26 13:23 | CASEMGMT ---
GINNA received a return call from Laura at [facility] and they are able to accept patient. Laura will start the pre-cert. GINNA will updated patient again. Plan: [facility] pending pre-cert with [facility]. Delores HOBBS
[2022-03-26] MEDS: Acetaminophen 500 MG Tablet 1000 MG PO ×2 (14:03→21:18)
--- NOTE | 2022-03-26 14:07 | PCM.PN.HOSP ---
Documented by User: Tanisha Eng NP, HEALTHCARE ASSOCIATE-C 03/26/22 14:22 Subjective Subjective Patient seen and examined. Resting comfortably in bed. Pain currently controlled. Denies lower extremity weakness, bowel or bladder incontinence. Denies pain radiation down either leg. Awaiting approval to SNF for rehab. Objective Data Objective Data Vital Signs: Vital Signs Temp Pulse Resp BP Pulse Ox 98.2 F 90 16 113/56 L 96 03/26/22 13:58 03/26/22 13:58 03/26/22 13:58 03/26/22 13:58 03/26/22 13:58 Oxygen Flow Rate (L/min) 2 Oxygen Delivery Method Room Air Weight: 165 lb 5.547 oz Body Mass Index (BMI) 32.3 Intake & Output: Intake and Output for Last 24 Hours 03/24/22 03/25/22 03/26/22 23:59 23:59 23:59 Intake Total 1150 / 1150 1450 / 1450 600 / 600 Output Total 3300 / 4300 2200 / 2200 Balance -2150 / -3150 -750 / -750 600 / 600 Lab / Micro Data Result Diagrams: 03/26/22 05:25 03/26/22 05:25 Labs: Laboratory Results - last 24 hr 03/25/22 16:08: POC Glucose 227 H 03/25/22 22:29: POC Glucose 111 H 03/26/22 05:25: WBC 7.0, RBC 3.48 L, Hgb 10.6 L, Hct 32.3 L, MCV 92.8, MCH 30.5, MCHC 32.8, RDW Std Deviation 45.7 H, RDW Coeff of Anisa 13.5, Plt Count 249, MPV 10.3, Immature Gran % (Auto) 1.000 H, Neut % (Auto) 60.0, Lymph % (Auto) 30.7, Aiken % (Auto) 6.3, Eos % (Auto) 1.4, Baso % (Auto) 0.6, Absolute Neuts (auto) 4.2, Absolute Lymphs (auto) 2.14, Nucleated RBC % 0 03/26/22 05:25: Sodium 133 L, Potassium 3.7, Chloride 97 L, Carbon Dioxide 29.0, Anion Gap 7, BUN 17, Creatinine 1.28 H, Estim Creat Clear Calc 34.41, Est GFR (MDRD) Af Amer 55 L, Est GFR (MDRD) Non-Af 45 L, BUN/Creatinine Ratio 13.3, Glucose 106, Calcium 9.7 03/26/22 07:57: POC Glucose 113 H 03/26/22 11:01: POC Glucose 135 H Physical Exam Const alert, oriented x3 and no apparent distress Orientation / Consciousness: awake, oriented to person, oriented to place and oriented to time HEENT normocephalic and moist oral mucous membranes Eyes PERRL, EOMs intact bilaterally and conjunctivae normal Neck no lymphadenopathy Resp normal respiratory effort and clear to auscultation bilaterally Cardio regular rate, regular rhythm and no murmurs Peripheral Pulses: pulses 2+ throughout GI normal to inspection, nondistended, normoactive bowel sounds, non-tender and non-distended Extremity normal to inspection Skin no rashes or lesions noted Lesions: no lesions Rashes: no rashes Trauma: no lacerations or abrasions Neuro CN's II-XII intact bilaterally, no focal motor deficits, no sensory deficits noted and deep tendon reflexes 2+ bilaterally Psych mental status grossly normal and affect normal Assessment & Plan Assessment/Plan (1) Intervertebral disc disorder with radiculopathy of lumbar region: PLAN: 1. Acute on chronic back pain with associated debility-recent MRI 02/24/2022 noted L3-L4 interspinous ligament strain. PT/OT. As needed pain regimen. PT/OT. SNF pending acceptance. Continue as needed pain regimen and scheduled gabapentin. 2. Type 2 diabetes mellitus, uncontrolled-associated peripheral neuropathy. Accu-Cheks with sliding scale insulin. Continue home insulin regimen. Recommend outpatient follow-up with endocrinology. 3. Chronic kidney disease stage IIIa-at baseline. 4. Chronic hyponatremia-suspect pseudohyponatremia due to uncontrolled glucose. Appears stable. 5. Hypothyroidism-continue Synthroid. 6. Bipolar disorder/PTSD-on Abilify, Celexa, Seroquel, alprazolam. 7. Tobacco dependence-encouraged cessation. 8. GERD-continue PPI. DVT prophylaxis- heparin sc This patient was seen by FRANSISCO Campos under the supervision of Dr. Prieto. Time spent examining patient, reviewing data and subsequent management of care: 14 minutes Documented by User: Dr. Ramez Prieto MD 03/26/22 15:22 Subjective Subjective Follow-up for chronic back pain, failure to thrive. Objective Data Lab / Micro Data Result Diagrams: 03/26/22 05:25 03/26/22 05:25 Physical Exam Narrative Seen and examined. Back pain is better. Bilateral leg weakness, chronic. Difficulty in walking and carrying her weight. General: Alert, Oriented x3, Cooperative HEENT: Atraumatic, PERRLA, EOMI, Normocephalic Oral: No Gingival or Mucosal Lesions/ Ulcerations Neck: Supple, No JVD, Negative Carotid Bruits Lungs: Air entry diminished in bilateral lung bases. No crepitation/rhonchi Cardiovascular: Regular rate, Regular Rhythm, Normal S1, Normal S2, No murmurs Abdomen: Bowel Sounds Present, Soft, Non Tender, Non-Distended : No renal angle tenderness. No suprapubic tenderness. Extremities: No edema, Capillary Refill Less than 3 Seconds Skin: No rashes, No breakdown Musculoskeletal: Mild tenderness over lumbar spine and paraspinal region. Tenderness over both legs, neuropathy pain. Muscle strength 4/5 at major joints of lower extremities Neurological: Cranial nerves II-XII grossly intact, DTR 2+/4 and Symmetrical, Psych/Mental Status: Flat affect. Assessment & Plan Assessment/Plan (1) Intervertebral disc disorder with radiculopathy of lumbar region: PLAN: This patient was seen in conjunction with Tanisha ADKINS. I have independently interviewed and examined the patient and reviewed pertinent history, examination findings, laboratory and plan of management. I have reviewed the note and agree with the documented findings with the few additional points. [facility] [id number] [place] [id number] Progress Note - Lazvtyvgsgz58/01/22 1520MR#: [id number]:SURI OCONNOR [facility] #:[id number]: From: Annabel Rivas HEALTHCARE ASSOCIATE-CPCP:Dr. Jarred Lopez MD Status:ADM INOLocation: [id number] Documented by User: FRANSISCO Babcock 03/25/22 15:24 Subjective Subjective Patient seen and examined. Patient lying in bed no distress noted. Patient awaiting pre-CERT to go to [facility] Objective Data Objective Data Vital Signs: Vital Signs Temp Pulse Resp BP Pulse Ox 97.5 F L 103 H 16 110/70 92 03/25/22 11:37 03/25/22 11:37 03/25/22 11:37 03/25/22 11:37 03/25/22 11:37 Oxygen Flow Rate (L/min) 3 Oxygen Delivery Method Room Air Weight: 165 lb 5.547 oz Body Mass Index (BMI) 32.3 Intake & Output:Intake and Output for Last 24 Hours 03/23/22 03/24/22 03/25/22 23:59 23:59 23:59 Intake Total 1050 / 1050 1150 / 1150 850 / 850 Output Total 3300 / 4300 2200 / 2200 Balance 1050 / 1050 -2150 / -3150 -1350 / -1350 Lab / Micro Data Result Diagrams: 03/25/22 05:31 document embedded image 03/25/22 05:31 document embedded image Labs:Laboratory Results - last 24 hr 03/24/22 16:40: POC Glucose 206 H 03/24/22 21:24: POC Glucose 333 H 03/25/22 05:31: WBC 6.0, RBC 3.48 L, Hgb 10.8 L, Hct 31.6 L, MCV 90.8, MCH 31.0, MCHC 34.2, RDW Std Deviation 44.4 H, RDW Coeff of Anisa 13.3, Plt Count 222, MPV 9.9, Immature Gran % (Auto) 1.200 H, Neut % (Auto) 60.8, Lymph % (Auto) 31.1, Aiken % (Auto) 5.2, Eos % (Auto) 1.2, Baso % (Auto) 0.5, Absolute Neuts (auto) 3.7, Absolute Lymphs (auto) 1.86, Nucleated RBC % 0 03/25/22 05:31: Sodium 133 L, Potassium 3.8, Chloride 98, Carbon Dioxide 32.0, Anion Gap 3 L, BUN 16, Creatinine 1.13 H, Estim Creat Clear Calc 38.98, Est GFR (MDRD) Af Amer 64, Est GFR (MDRD) Non-Af 52 L, BUN/Creatinine Ratio 14.2, Glucose 211 H, Calcium 9.1 03/25/22 07:45: POC Glucose 181 H 03/25/22 11:41: POC Glucose 291 H Physical Exam Const alert, oriented x3 and no apparent distress General Appearance: cooperative HEENT normocephalic and head/scalp atraumatic Eyes conjunctivae normal and no scleral icterus Neck no lymphadenopathy and supple General: trachea midline Resp normal respiratory effort, normal air movement and clear to auscultation bilaterally Cardio regular rate, regular rhythm, S1 normal heart sound, S2 normal heart sound and peripheral pulses 2+ throughout GI normal to inspection, nondistended, normoactive bowel sounds, soft to palpation and non-tender Extremity normal to inspection, normal capillary refill and no clubbing, cyanosis or edema Skin General Skin Exam: no breakdown and turgor normal Lesions: no lesions Rashes: no rashes Neuro oriented x3, no focal motor deficits and no sensory deficits noted Sensorium / Orientation: awake and alert Speech: speech normal Sensory Exam: extremities light-touch: normal Motor Exam: general weakness Psych cooperative Appearance: appropriate Assessment & Plan Assessment/Plan (1) HTN (hypertension): QUALIFIERS: Hypertension type: essential hypertension Qualified Code(s): I10 - Essential (primary) hypertension (2) Pure hypercholesterolemia: (3) Intervertebral disc disorder with radiculopathy of lumbar region: PLAN: 1. Chronic low back pain secondary to L3-L4 interspinous ligament strain as noted on MRI on 02/24/2022 -PT and OT following -Of note this patient is on care plan with the hospital with regard to treating her chronic back pain, patient has failed to follow-up appropriately outpatient. -Scheduled Lidoderm patch, gabapentin, Flexeril, Tylenol ordered for pain management. Gabapentin increased to 300 mg 3 times daily 03/22/2022, pt tolerating well, has improved pain -Case management consulted social work initiated pre-CERT for SNF placement due to weakness -CBC and CMP ordered daily 2. Hyponatremia and hypochloremia -Sodium and chloride 133 and 98 today -CMP daily 3.Diabetes mellitus type 2 -Patient admits to not taking her medications at home for some time -ACH S blood sugars with sliding scale insulin ordered, sliding scale increased from high medium to high dosing -Patient initiated on Lantus 20 units daily 03/21/2022, increased to 30 units daily 03/23/2022, increased to 35 units daily 03/24/22 4. Anxiety -Continue Abilify, Celexa, Seroquel 5. Hypothyroidism -Continue levothyroxine 6. Chronic kidney disease stage IIIa -Creatinine consistent with baseline -CMP daily Discharge planning-patient planned to go to custodial facility, awaiting pre-CERT DVT prophylaxis-subcu heparin This patient was seen by Annabel Rivas NP-C under the supervision of Dr. Prieto. 15 minutes spent in clinical coordination of patient's plan of care. Documented by User: Dr. Ramez Prieto MD 03/25/22 16:46 Objective Data Lab / Micro Data Result Diagrams: 03/25/22 05:31 document embedded image 03/25/22 05:31 document embedded image Physical Exam Narrative Seen and examined. Patient complains of weakness and pain in the back. Pain is somewhat better. General: Alert, Oriented x3, Cooperative HEENT: Atraumatic, PERRLA, EOMI, Normocephalic Oral: No Gingival or Mucosal Lesions/ Ulcerations Neck: Supple, No JVD, Negative Carotid Bruits Lungs: Air entry diminished in bilateral lung bases. No crepitation/rhonchi Cardiovascular: Regular rate, Regular Rhythm, Normal S1, Normal S2, No murmurs Abdomen: Bowel Sounds Present, Soft, Non Tender, Non-Distended : No renal angle tenderness. No suprapubic tenderness. Extremities: No edema, Capillary Refill Less than 3 Seconds Skin: No rashes, No breakdown Musculoskeletal: Mild tenderness over lumbar spine and paraspinal region. Tenderness over both legs, neuropathy pain. Muscle strength 4/5 at major joints of lower extremities Neurological: Cranial nerves II-XII grossly intact, DTR 2+/4 and Symmetrical, Psych/Mental Status: Flat affect. Assessment & Plan Assessment/Plan (1) Intervertebral disc disorder with radiculopathy of lumbar region: PLAN: This patient was seen in conjunction with JED Jin. I have independently interviewed and examined the patient and reviewed pertinent history, examination findings, laboratory and plan of management. I have reviewed the note and agree with the documented findings with the few additional points. In brief, patient is admitted for acute on chronic back pain. Lumbar MRI shows findings consistent with L3-4 interspinous ligament strain. No compressive disc disease, canal or high-grade foraminal stenosis. Mild degenerative changes. Thoracic spine MRI reported normal. PT and OT ordered. On Lidoderm patch. Pre-CERT pending for fci. Diabetes mellitus type 2 with uncontrolled hyperglycemia complicated with peripheral neuropathy: Scheduled Lantus and Humalog insulin. Dose titrated up according to Accu-Cheks. 03/24: Accu-Chek levels are high. Lantus and Humalog insulin titrated up. 03/26: Accu-Cheks are in good range. Glucose 106 in BMP Keep the current dose of insulin. Hyponatremia: Hypokalemia corrected. Last potassium 4.2. Isovolemic hyponatremia, sodium 132. Since this is her baseline. 03/26: Sodium is 133. CKD stage III and hypertension, hypothyroidism and physical deconditioning debility. Patient other comorbidities are anxiety and depression. I have discussed my assessment with Tanisha ADKINS and orders have been reviewed. Charges/Coding Visit Charges Inpatient E&M: 98926 Subs Hosp L2
--- NOTE | 2022-03-26 14:42 | CASEMGMT ---
GINNA went to patient's room. Her son and another individual were present. GINNA told patient that her insurance changed to [facility] as of yesterday. GINNA told patient due to this change [facility] cannot take her, but [facility] can. GINNA explained the insurance process was started all over again. Hopefully we will hear from insurance tomorrow. Both patient and family thanked GINNA for the update. Plan: d/c to [facility] pending insurance approval. Delores HOBBS
[2022-03-26] MEDS: Insulin Lispro 100 UNIT/ML INSULN.PEN SC ×2 (16:19→21:25)
[2022-03-26 16:31] LABS: Bedside Glucose 231 mg/dL (74-106)
[2022-03-26] MEDS: ARIPiprazole 5 MG Tablet 15 MG PO (21:18)
[2022-03-26] MEDS: QUEtiapine 100 MG Tablet PO (21:20)
[2022-03-27 00:35] LABS: Bedside Glucose 202 mg/dL (74-106)
[2022-03-27 04:00] VITALS: BP 106/69; PULSE 89; RESP 16; TEMP 36.3; O2SAT 94
[2022-03-27 04:11] LABS: Anion Gap 6 (5-15); BUN 18 mg/dL (7-18); Calcium,Total 9.5 mg/dL (8.5-10.1); Chloride 96 mmol/L (98-107); Creatinine, Serum 1.29 mg/dL (0.55-1.02); EST Glomerular Filtration Rate 45 mL/min (>60); Est Glom Filt Rate - Afr Amer 55 mL/min (>60); Estimated Creatinine Clearance 34.14 ml/min; Glucose 152 mg/dL (74-106); Potassium 3.4 mmol/L (3.5-5.1); Sodium Level 135 mmol/L (136-145)
[2022-03-27] MEDS: Heparin Injection (Vial) 5,000 UNIT/ML VIAL 5000 UNIT SC ×3 (05:17→21:23)
[2022-03-27] MEDS: cycloBENZAPRine HCl 10 MG Tablet PO ×3 (05:17→21:23)
[2022-03-27] MEDS: Acetaminophen 500 MG Tablet 1000 MG PO ×3 (05:17→21:23)
[2022-03-27 07:50] VITALS: O2SAT 95
[2022-03-27 08:05] LABS: Bedside Glucose 158 mg/dL (74-106)
[2022-03-27 09:32] VITALS: BP 118/79; PULSE 95; RESP 15; TEMP 36.7; O2SAT 95
[2022-03-27] MEDS: Insulin Lispro 100 UNIT/ML INSULN.PEN SC (09:35)
[2022-03-27] MEDS: Insulin Lispro 100 UNIT/ML INSULN.PEN 10 UNIT SC ×3 (09:36→17:48)
[2022-03-27] MEDS: Insulin Glargine-YFGN 100 UNIT/ML Pen 35 UNIT SC (09:37)
[2022-03-27] MEDS: ALPRAZolam 0.5 MG Tablet PO (09:43)
[2022-03-27] MEDS: Senna/Docusate Sodium 1 Tablet 2 TABLET PO ×2 (09:43→21:23)
[2022-03-27] MEDS: Gabapentin 300 MG Capsule PO ×3 (09:43→17:48)
[2022-03-27] MEDS: Bisacodyl 5 MG Tablet 10 MG PO (09:44)
--- NOTE | 2022-03-27 11:16 | TREXTCAR_ITS ---
Documented by User: Tanisha Eng NP, LITHOGRAPHERS PRINTER-C 03/27/22 11:31 Diet 03/20/22 18:18 Diet: Regular - Carb control Food consistency:: Regular Liquid Consistency:: Regular/Thin Routine Orders/Code Status Enema Type: Fleetz Enema Frequency: Daily PRN Suppository Type: Dulcolax 10mg Suppository Frequency: Daily PRN Routine Lab Work: BMP (In 1 week) Code Status: Full Code Wound(s) left elbow: Wound Type: Abrasion right forearm: Wound Type: Scab Suggestions for Active Care Change Position every (hours): 2 Times a day to sit in chair: 3 Therapies Physical Therapy: Eval and Treat Occupational Therapy: Eval and Treat Problem/Diagnosis (1) Intervertebral disc disorder with radiculopathy of lumbar region: Status: Acute Allergies/Procedures Done in Hospital Allergies celecoxib [From Celebrex] Allergy (Verified 03/20/22 15:44) Itching ciprofloxacin [From Cipro] Allergy (Verified 03/20/22 15:44) Swelling ciprofloxacin HCl [From Cipro] Allergy (Verified 03/20/22 15:44) Swelling codeine Allergy (Verified 03/20/22 15:44) Hives ibuprofen Allergy (Verified 03/20/22 15:44) Hives naproxen Allergy (Verified 03/20/22 15:44) Hives Penicillins Allergy (Verified 03/20/22 15:44) Hives tramadol HCl [From Ultram] Allergy (Verified 03/20/22 15:44) Hives ketorolac [From Toradol] Adverse Reaction (Verified 03/20/22 15:44) Swelling Procedures: None Type of Care/Length of Stay Estimated LOS: Convalescent Care Less Than 30 days Type of Care Needed: Skilled Rehab Potential: Good Prognosis: Good Additional Orders/Day of Discharge H&P will serve as current which was dated: 03/20/22 Day of Discharge: 03/24/22 Discharge Plan Admission Admit Date/Time: 03/20/22 17:20 Primary Reason for Your Visit: Acute on chronic back pain Attending Provider: Ramez Prieto Primary Care Provider: Jarred Lopez Consulting Providers: Kathia Shine Discharge Orders/Prescriptions Prescriptions: New cyclobenzaprine 10 mg Tablet 10 mg PO TID PRN (Reason: back spasm) Qty: 0 RF: 0 insulin lispro [Humalog KwikPen Insulin] 100 unit/mL Insulin Pen See Protocol unit subcut ACHS Qty: 0 RF: 0 insulin glargine-yfgn 100 unit/mL (3 mL) Insulin Pen 35 unit subcut DAILY Qty: 0 RF: 0 insulin lispro [Humalog KwikPen Insulin] 100 unit/mL Insulin Pen 10 unit subcut TIDAC Qty: 0 RF: 0 lidocaine 5 % Adhesive Patch,Medicated 2 patch topical DAILY PRN (Reason: back pain) Qty: 30 RF: 0 gabapentin 300 mg Capsule 300 mg PO TIDCM Qty: 60 RF: 0 acetaminophen 500 mg Tablet 1,000 mg PO TID PRN (Reason: pain) Qty: 0 RF: 0 polyethylene glycol 3350 17 gram Powder In Packet 17 g PO DAILY PRN PRN (Reason: constipation) Qty: 0 RF: 0 sennosides-docusate sodium [Stool Softener-Stimulant Laxat] 8.6-50 mg Tablet 2 tab PO BID Qty: 0 RF: 0 Remove Patch 1 patch topical DAILY@2200 Qty: 0 RF: 0 Continued rizatriptan 10 tablet 10 mg PO PRN PRN (Reason: Migraine Symptoms) RF: 0 quetiapine [Seroquel] 100 mg Tablet 100 mg PO QHS RF: 0 aripiprazole [Abilify] 15 mg Tablet 15 mg PO QHS RF: 0 (DME) pen needle,diabetic, disp unit 29 gauge x 1/2 needle See Rx Instructions .ROUTE .MEDSUPPLY Qty: 100 RF: 0 alprazolam 0.5 mg tablet 0.5 mg PO DAILY RF: 0 Referrals / Follow Up: Jacqueline Renteria MD [STAFF PHYSICIAN] - Within 2 Weeks (for back pain 03/31/22 3:45pm) Jarred Lopez MD [Primary Care Provider] - Within 2 Weeks (03/30/22 2:20pm with Dr. Villalobos ) Disposition Disposition (needs filled in before D/C Order can be placed): [facility] Documented by User: Dr. Ramez Prieto MD 03/27/22 15:18 Routine Orders/Code Status Suppository Type: Dulcolax 10mg Suppository Frequency: Daily PRN Therapies Weight Bearing: Weight bearing as tolerated Extremity Affected:: Bilateral Lower Physical Therapy: Eval and Treat Occupational Therapy: Eval and Treat Speech Therapy: Eval and Treat Allergies/Procedures Done in Hospital Allergies celecoxib [From Celebrex] Allergy (Verified 03/20/22 15:44) Itching ciprofloxacin [From Cipro] Allergy (Verified 03/20/22 15:44) Swelling ciprofloxacin HCl [From Cipro] Allergy (Verified 03/20/22 15:44) Swelling codeine Allergy (Verified 03/20/22 15:44) Hives ibuprofen Allergy (Verified 03/20/22 15:44) Hives naproxen Allergy (Verified 03/20/22 15:44) Hives Penicillins Allergy (Verified 03/20/22 15:44) Hives tramadol HCl [From Ultram] Allergy (Verified 03/20/22 15:44) Hives ketorolac [From Toradol] Adverse Reaction (Verified 03/20/22 15:44) Swelling Discharge Plan Admission Admit Date/Time: 03/20/22 17:20 Primary Reason for Your Visit: Acute on chronic back pain Attending Provider: Ramez Prieto Primary Care Provider: Jarred Lopez Consulting Providers: Kathia Shine Discharge Orders/Prescriptions Prescriptions: New cyclobenzaprine 10 mg Tablet 10 mg PO TID PRN (Reason: back spasm) Qty: 0 RF: 0 insulin lispro [Humalog KwikPen Insulin] 100 unit/mL Insulin Pen See Protocol unit subcut ACHS Qty: 0 RF: 0 insulin glargine-yfgn 100 unit/mL (3 mL) Insulin Pen 35 unit subcut DAILY Qty: 0 RF: 0 insulin lispro [Humalog KwikPen Insulin] 100 unit/mL Insulin Pen 10 unit subcut TIDAC Qty: 0 RF: 0 lidocaine 5 % Adhesive Patch,Medicated 2 patch topical DAILY PRN (Reason: back pain) Qty: 30 RF: 0 gabapentin 300 mg Capsule 300 mg PO TIDCM Qty: 60 RF: 0 acetaminophen 500 mg Tablet 1,000 mg PO TID PRN (Reason: pain) Qty: 0 RF: 0 polyethylene glycol 3350 17 gram Powder In Packet 17 g PO DAILY PRN PRN (Reason: constipation) Qty: 0 RF: 0 sennosides-docusate sodium [Stool Softener-Stimulant Laxat] 8.6-50 mg Tablet 2 tab PO BID Qty: 0 RF: 0 Remove Patch 1 patch topical DAILY@2200 Qty: 0 RF: 0 Continued rizatriptan 10 tablet 10 mg PO PRN PRN (Reason: Migraine Symptoms) RF: 0 quetiapine [Seroquel] 100 mg Tablet 100 mg PO QHS RF: 0 aripiprazole [Abilify] 15 mg Tablet 15 mg PO QHS RF: 0 (DME) pen needle,diabetic, disp unit 29 gauge x 1/2 needle See Rx Instructions .ROUTE .MEDSUPPLY Qty: 100 RF: 0 alprazolam 0.5 mg tablet 0.5 mg PO DAILY RF: 0 Referrals / Follow Up: Jacqueline Renteria MD [STAFF PHYSICIAN] - Within 2 Weeks (for back pain 03/31/22 3:45pm) Jarred Lopez MD [Primary Care Provider] - Within 2 Weeks (03/30/22 2:20pm with Dr. Villalobos ) Disposition Disposition (needs filled in before D/C Order can be placed): [facility]
--- NOTE | 2022-03-27 11:22 | PN.HOSP_ITS ---
Documented by User: Tanisha Eng NP, SAFETY ADMIN ASSISTANT-C 03/27/22 11:24 Subjective Subjective Patient seen and examined. Denies new symptoms or complaints. Awaiting SNF approval. Objective Data Objective Data Vital Signs: Vital Signs Temp Pulse Resp BP Pulse Ox 98.1 F 95 15 118/79 95 03/27/22 09:32 03/27/22 09:32 03/27/22 09:32 03/27/22 09:32 03/27/22 09:32 Oxygen Flow Rate (L/min) 2 Oxygen Delivery Method Nasal Cannula Weight: 165 lb 5.547 oz Body Mass Index (BMI) 32.3 Intake & Output: Intake and Output for Last 24 Hours 03/25/22 03/26/22 03/27/22 23:59 23:59 23:59 Intake Total 1450 / 1450 1120 / 1120 Output Total 2200 / 2200 800 / 800 Balance -750 / -750 1120 / 520 -800 / -800 Lab / Micro Data Result Diagrams: 03/26/22 05:25 03/27/22 03:28 Labs: Laboratory Results - last 24 hr 03/26/22 16:18: POC Glucose 231 H 03/26/22 21:25: POC Glucose 202 H 03/27/22 03:28: Sodium 135 L, Potassium 3.4 L, Chloride 96 L, Carbon Dioxide 33.0 H, Anion Gap 6, BUN 18, Creatinine 1.29 H, Estim Creat Clear Calc 34.14, Est GFR (MDRD) Af Amer 55 L, Est GFR (MDRD) Non-Af 45 L, BUN/Creatinine Ratio 14.0, Glucose 152 H, Calcium 9.5 03/27/22 08:02: POC Glucose 158 H Physical Exam Const alert, oriented x3 and no apparent distress Orientation / Consciousness: awake, oriented to person, oriented to place and oriented to time HEENT normocephalic and moist oral mucous membranes Eyes PERRL, EOMs intact bilaterally and conjunctivae normal Neck no lymphadenopathy Resp normal respiratory effort and clear to auscultation bilaterally Cardio regular rate, regular rhythm and no murmurs Peripheral Pulses: pulses 2+ throughout GI normal to inspection, nondistended, normoactive bowel sounds, non-tender and non-distended Extremity normal to inspection Skin no rashes or lesions noted Lesions: no lesions Rashes: no rashes Trauma: no lacerations or abrasions Neuro CN's II-XII intact bilaterally, no focal motor deficits, no sensory deficits noted and deep tendon reflexes 2+ bilaterally Psych mental status grossly normal and affect normal Assessment & Plan Assessment/Plan (1) Intervertebral disc disorder with radiculopathy of lumbar region: PLAN: 1. Acute on chronic back pain with associated debility-recent MRI 02/24/2022 noted L3-L4 interspinous ligament strain. PT/OT. As needed pain regimen. PT/OT. SNF pending acceptance. Continue as needed pain regimen and s cheduled gabapentin. 2. Type 2 diabetes mellitus, uncontrolled-associated peripheral neuropathy. A ccu-Cheks with sliding scale insulin. Continue home insulin regimen. Recommend outpatient follow-up with endocrinology. 3. Chronic kidney disease stage IIIa-at baseline. 4. Chronic hyponatremia-suspect pseudohyponatremia due to uncontrolled glucose. Appears stable. 5. Hypothyroidism-continue Synthroid. 6. Bipolar disorder/PTSD-on Abilify, Celexa, Seroquel, alprazolam. 7. Tobacco dependence-encouraged cessation. 8. GERD-continue PPI. DVT prophylaxis- heparin sc This patient was seen by Tanisha Eng NP-C under the supervision of Dr. Prieto. Time spent examining patient, reviewing data and subsequent management of care: 10 minutes Documented by User: Dr. Ramez Prieto MD 03/27/22 15:23 Subjective Subjective Seen and examined. Patient has chronic back pain. Complain of constipation and has not moved bowel for 4 days. Senna S added on laxative MiraLAX. Dulcolax 10 mg 1 dose given. Objective Data Lab / Micro Data Result Diagrams: 03/26/22 05:25 03/27/22 03:28 Physical Exam Narrative Seen and examined. Bilateral leg weakness, chronic. Difficulty in walking General: Alert, Oriented x3, Cooperative HEENT: Atraumatic, PERRLA, EOMI, Normocephalic Oral: No Gingival or Mucosal Lesions/ Ulcerations Neck: Supple, No JVD, Negative Carotid Bruits Lungs: Air entry diminished in bilateral lung bases. No crepitation/rhonchi Cardiovascular: Regular rate, Regular Rhythm, Normal S1, Normal S2, No murmurs Abdomen: Bowel Sounds Present, Soft, Non Tender, Non-Distended. Bowel sounds sluggish : No renal angle tenderness. No suprapubic tenderness. Extremities: No edema, Capillary Refill Less than 3 Seconds Skin: No rashes, No breakdown Musculoskeletal: Mild tenderness over lumbar spine and paraspinal region. Tenderness over both legs, neuropathy pain. Muscle strength 4/5 at major joints of lower extremities Neurological: Cranial nerves II-XII grossly intact, DTR 2+/4 and Symmetrical, Psych/Mental Status: Flat affect. Assessment & Plan Assessment/Plan (1) Intervertebral disc disorder with radiculopathy of lumbar region: PLAN: This patient was seen in conjunction with JED Jin. I have independently interviewed and examined the patient and reviewed pertinent history, examination findings, laboratory and plan of management. I have reviewed the note and agree with the documented findings with the few additional points. In brief, patient is admitted for acute on chronic back pain. Lumbar MRI shows findings consistent with L3-4 interspinous ligament strain. No compressive disc disease, canal or high-grade foraminal stenosis. Mild degenerative changes. Thoracic spine MRI reported normal. PT and OT ordered. On Lidoderm patch. Pre-CERT pending for longterm. Diabetes mellitus type 2 with uncontrolled hyperglycemia complicated with peripheral neuropathy: Scheduled Lantus and Humalog insulin. Dose titrated up according to Accu-Cheks. 03/24: Accu-Chek levels are high. Lantus and Humalog insulin titrated up. 03/26: Accu-Cheks are in good range. Glucose 106 in BMP Keep the current dose of insulin. 03/27: Glucose is 152, A1c 13.1%. Hyponatremia: Hypokalemia corrected. Last potassium 4.2. Isovolemic hyponatremia, sodium 132. Since this is her baseline. 03/26: Sodium is 133. 03/27: Sodium 135, potassium 3.4. Bicarb 33. 1 dose of K-Dur given. CKD stage III and hypertension, hypothyroidism and physical deconditioning debility. Patient other comorbidities are anxiety and depression. Severe constipation Senna S2 tablet twice daily added on top of MiraLAX. Dulcolax 10 mg 1 dose given. Date of last BM documented 03/20. No abdominal tenderness or distention. Last CT abdomen on 01/13/2022 showed no evidence of bowel issues/abnormality. Watch for bowel movement. I have discussed my assessment with SAFETY ADMIN ASSISTANT, Tanisha and orders have been reviewed. Charges/Coding Visit Charges Inpatient E&M: 51271 Subs Hosp L2
--- NOTE | 2022-03-27 11:24 | PCM.DC.SUM ---
Providers Date of Admission: 03/20/22 Date of Discharge: 03/27/22 Primary Care Physician: Dr. Jarred Lopez MD Reason For Visit: ACUTE ON CHRONIC LOW BACK PAIN Diagnosis Discharge Diagnosis (1) Intervertebral disc disorder with radiculopathy of lumbar region: Status: Acute Code(s): M51.16 - Intervertebral disc disorders with radiculopathy, lumbar region Medications at Discharge Home Medications rizatriptan 10 mg PO PRN PRN 12/27/17 aripiprazole [Abilify] 15 mg PO QHS 06/20/21 quetiapine [Seroquel] 100 mg PO QHS 06/20/21 pen needle,diabetic, disp unit #100 ea 06/23/21 alprazolam 0.5 mg PO DAILY 03/20/22 cyclobenzaprine 10 mg PO TID PRN #0 tab 03/24/22 gabapentin 300 mg PO TIDCM #60 cap 03/24/22 insulin glargine-yfgn 35 unit SUBCUT DAILY #0 ml 03/24/22 insulin lispro [Humalog KwikPen Insulin] 10 unit SUBCUT TIDAC #0 ml 03/24/22 insulin lispro [Humalog KwikPen Insulin] See Protocol SUBCUT ACHS #0 ml 03/24/22 lidocaine 2 patch TOPICAL DAILY PRN #30 ea 03/24/22 acetaminophen 1,000 mg PO TID PRN #0 tab 03/27/22 Hospital Course Operations None Procedures None Summary of Care Provided Hospital Course: Patient is a 56-year-old female admitted 03/20/2022 due to back and leg pain. 1. Acute on chronic back pain with associated debility-recent MRI 02/24/2022 noted L3-L4 interspinous ligament strain. PT/OT. As needed pain regimen. Continue as needed pain regimen and scheduled gabapentin. SNF for ongoing PT/OT. Follow-up with PCP and pain management. 2. Type 2 diabetes mellitus, uncontrolled-associated peripheral neuropathy. Continue current insulin regimen. Recommend outpatient follow-up with endocrinology. 3. Chronic kidney disease stage IIIa-at baseline. 4. Chronic hyponatremia-suspect pseudohyponatremia due to uncontrolled glucose. Appears stable. 5. Hypothyroidism-continue Synthroid. 6. Bipolar disorder/PTSD-on Abilify, Celexa, Seroquel, alprazolam. 7. Tobacco dependence-encouraged cessation. 8. GERD-continue PPI. 9. Suspected JEAN MARIE-patient noted to have intermittent mild hypoxia with sleeping. Continue supplemental oxygen as needed to maintain O2 at or above 90%. Recommend outpatient follow-up for PSG/overnight trending pulse ox. Physical Exam Const alert, oriented x3 and no apparent distress Orientation / Consciousness: awake, oriented to person, oriented to place and oriented to time HEENT normocephalic and moist oral mucous membranes Eyes PERRL, EOMs intact bilaterally and conjunctivae normal Neck no lymphadenopathy Resp normal respiratory effort and clear to auscultation bilaterally Cardio regular rate, regular rhythm and no murmurs Peripheral Pulses: pulses 2+ throughout GI normal to inspection, nondistended, normoactive bowel sounds, non-tender and non-distended Extremity normal to inspection Skin no rashes or lesions noted Lesions: no lesions Rashes: no rashes Trauma: no lacerations or abrasions Neuro CN's II-XII intact bilaterally, no focal motor deficits, no sensory deficits noted and deep tendon reflexes 2+ bilaterally Psych mental status grossly normal and affect normal This patient was seen by Tanisha Eng NP-C under the supervision of Dr. Prieto. Time spent examining patient, reviewing data and subsequent management of care: 23 minutes Weight / BMI Weight Weight: 165 lb 5.547 oz Body Mass Index (BMI) 32.3 ABG / Lab / Microbiology Data Result Diagrams: 03/26/22 05:25 03/27/22 03:28 Laboratory: Laboratory Results - last 24 hr 03/26/22 16:18: POC Glucose 231 H 03/26/22 21:25: POC Glucose 202 H 03/27/22 03:28: Sodium 135 L, Potassium 3.4 L, Chloride 96 L, Carbon Dioxide 33.0 H, Anion Gap 6, BUN 18, Creatinine 1.29 H, Estim Creat Clear Calc 34.14, Est GFR (MDRD) Af Amer 55 L, Est GFR (MDRD) Non-Af 45 L, BUN/Creatinine Ratio 14.0, Glucose 152 H, Calcium 9.5 03/27/22 08:02: POC Glucose 158 H Meaningful Use Info Meaningful Use Diagnoses (Choose all that apply): None applicable Discharge Plan Admission Admit Date/Time: 03/20/22 17:20 Primary Reason for Your Visit: Acute on chronic back pain Attending Provider: Ramez Prieto Primary Care Provider: Jarred Lopez Consulting Providers: Kathia Shine Discharge Orders/Prescriptions Prescriptions: New cyclobenzaprine 10 mg Tablet 10 mg PO TID PRN (Reason: back spasm) Qty: 0 RF: 0 insulin lispro [Humalog KwikPen Insulin] 100 unit/mL Insulin Pen See Protocol unit subcut ACHS Qty: 0 RF: 0 insulin glargine-yfgn 100 unit/mL (3 mL) Insulin Pen 35 unit subcut DAILY Qty: 0 RF: 0 insulin lispro [Humalog KwikPen Insulin] 100 unit/mL Insulin Pen 10 unit subcut TIDAC Qty: 0 RF: 0 lidocaine 5 % Adhesive Patch,Medicated 2 patch topical DAILY PRN (Reason: back pain) Qty: 30 RF: 0 gabapentin 300 mg Capsule 300 mg PO TIDCM Qty: 60 RF: 0 acetaminophen 500 mg Tablet 1,000 mg PO TID PRN (Reason: pain) Qty: 0 RF: 0 Continued rizatriptan 10 tablet 10 mg PO PRN PRN (Reason: Migraine Symptoms) RF: 0 quetiapine [Seroquel] 100 mg Tablet 100 mg PO QHS RF: 0 aripiprazole [Abilify] 15 mg Tablet 15 mg PO QHS RF: 0 (DME) pen needle,diabetic, disp unit 29 gauge x 1/2 needle See Rx Instructions .ROUTE .MEDSUPPLY Qty: 100 RF: 0 alprazolam 0.5 mg tablet 0.5 mg PO DAILY RF: 0 Referrals / Follow Up: Jacqueline Renteria MD [STAFF PHYSICIAN] - Within 2 Weeks (for back pain 03/31/22 3:45pm) Jarred Lopez MD [Primary Care Provider] - Within 2 Weeks (03/30/22 2:20pm with Dr. Villalobos ) Disposition Disposition (needs filled in before D/C Order can be placed): Shelter Facility
[2022-03-27] MEDS: Potassium Chloride Oral Tablet 20 MEQ 40 MEQ PO (12:00)
[2022-03-27 12:10] LABS: Bedside Glucose 125 mg/dL (74-106)
[2022-03-27 15:20] VITALS: BP 107/62; PULSE 87; RESP 14; TEMP 36.8; O2SAT 94
[2022-03-27] MEDS: Bisacodyl 10 MG Suppository RC (15:58)
--- NOTE | 2022-03-27 16:21 | CASEMGMT ---
GINNA has spoken to Carrabelle at [facility] a couple of times and she still has not heard from insurance. GINNA asked Laura to call PCU if she would get pre-cert. GINNA gave her the phone number for PCU. GINNA spoke with patient and let her know we are still waiting on her insurance. SW let patient know it is possible if we do not hear today she may be here until Wednesday. Green sheet on chart in the event [facility] calls with Pre-cert. Plan: d/c to [facility] under skilled level of care pending pre-cert. Delores Devries [facility]IA[facility] ANJEL
[2022-03-27 17:40] LABS: Bedside Glucose 112 mg/dL (74-106)
[2022-03-27 21:00] VITALS: BP 100/63; PULSE 82; RESP 16; TEMP 36.8; O2SAT 96
[2022-03-27] MEDS: ARIPiprazole 5 MG Tablet 15 MG PO (21:23)
[2022-03-27] MEDS: QUEtiapine 100 MG Tablet PO (21:23)
[2022-03-27 21:31] LABS: Bedside Glucose 98 mg/dL (74-106)
[2022-03-28 03:00] VITALS: BP 107/69; PULSE 93; RESP 14; TEMP 36.6; O2SAT 91
[2022-03-28] MEDS: Heparin Injection (Vial) 5,000 UNIT/ML VIAL 5000 UNIT SC ×3 (04:58→21:09)
[2022-03-28] MEDS: Acetaminophen 500 MG Tablet 1000 MG PO ×3 (04:58→21:12)
[2022-03-28] MEDS: cycloBENZAPRine HCl 10 MG Tablet PO ×3 (04:58→21:09)
[2022-03-28 05:00] VITALS: BP 109/88; PULSE 90; RESP 14; TEMP 36.7; O2SAT 96
[2022-03-28 06:56] VITALS: O2SAT 96
[2022-03-28] MEDS: Insulin Lispro 100 UNIT/ML INSULN.PEN 10 UNIT SC ×3 (08:16→17:09)
[2022-03-28] MEDS: Insulin Lispro 100 UNIT/ML INSULN.PEN SC ×2 (08:16→12:06)
[2022-03-28] MEDS: Insulin Glargine-YFGN 100 UNIT/ML Pen 35 UNIT SC (08:17)
[2022-03-28 08:26] LABS: Bedside Glucose 182 mg/dL (74-106)
[2022-03-28] MEDS: Gabapentin 300 MG Capsule PO ×3 (08:26→17:09)
[2022-03-28 09:08] VITALS: BP 132/79; PULSE 83; RESP 17; TEMP 36.5; O2SAT 96
[2022-03-28] MEDS: ALPRAZolam 0.5 MG Tablet PO (09:10)
--- NOTE | 2022-03-28 09:57 | PCM.PN.HOSP ---
Documented by User: Tanisha Eng NP, ROCKET MOTOR MECHANIC-C 03/28/22 10:02 Subjective Subjective Patient seen and examined. Denies new symptoms or complaints. Pain controlled. Objective Data Objective Data Vital Signs: Vital Signs Temp Pulse Resp BP Pulse Ox 97.7 F L 83 17 132/79 H 96 03/28/22 09:08 03/28/22 09:08 03/28/22 09:08 03/28/22 09:08 03/28/22 09:08 Oxygen Flow Rate (L/min) 2 Oxygen Delivery Method Nasal Cannula Weight: 165 lb 5.547 oz Body Mass Index (BMI) 32.3 Intake & Output: Intake and Output for Last 24 Hours 03/26/22 03/27/22 03/28/22 23:59 23:59 23:59 Intake Total 1120 / 1120 1000 / 1120 380 / 380 Output Total 800 / 800 Balance 1120 / 520 200 / 320 380 / 380 Lab / Micro Data Result Diagrams: 03/26/22 05:25 03/27/22 03:28 Labs: Laboratory Results - last 24 hr 03/27/22 11:59: POC Glucose 125 H 03/27/22 17:36: POC Glucose 112 H 03/27/22 21:22: POC Glucose 98 03/28/22 08:14: POC Glucose 182 H Physical Exam Const alert, oriented x3 and no apparent distress Orientation / Consciousness: awake, oriented to person, oriented to place and oriented to time HEENT normocephalic and moist oral mucous membranes Eyes PERRL, EOMs intact bilaterally and conjunctivae normal Neck no lymphadenopathy Resp normal respiratory effort and clear to auscultation bilaterally Cardio regular rate, regular rhythm and no murmurs Peripheral Pulses: pulses 2+ throughout GI normal to inspection, nondistended, normoactive bowel sounds, non-tender and non-distended Extremity normal to inspection Skin no rashes or lesions noted Lesions: no lesions Rashes: no rashes Trauma: no lacerations or abrasions Neuro CN's II-XII intact bilaterally, no focal motor deficits, no sensory deficits noted and deep tendon reflexes 2+ bilaterally Psych mental status grossly normal Mood & Affect: flat affect Assessment & Plan Assessment/Plan (1) Intervertebral disc disorder with radiculopathy of lumbar region: PLAN: 1. Acute on chronic back pain with associated debility-recent MRI 02/24/2022 noted L3-L4 interspinous ligament strain. PT/OT. As needed pain regimen. PT/OT. SNF pending acceptance. Continue as needed pain regimen and scheduled gabapentin. 2. Type 2 diabetes mellitus, uncontrolled-associated peripheral neuropathy. Accu-Cheks with sliding scale insulin. Continue home insulin regimen. Recommend outpatient follow-up with endocrinology. 3. Chronic kidney disease stage IIIa-at baseline. 4. Chronic hyponatremia-suspect pseudohyponatremia due to uncontrolled glucose. Appears stable. 5. Hypothyroidism-continue Synthroid. 6. Bipolar disorder/PTSD-on Abilify, Celexa, Seroquel, alprazolam. 7. Tobacco dependence-encouraged cessation. 8. GERD-continue PPI. DVT prophylaxis- heparin sc This patient was seen by FRANSISCO Campos under the supervision of Dr. Prieto. Discharge planning: awaiting approval to SNF. Time spent examining patient, reviewing data and subsequent management of care: 10 minutes Documented by User: Dr. Ramez Prieto MD 03/28/22 16:43 Subjective Subjective Follow-up for back pain. Patient moved her bowel movement. Objective Data Lab / Micro Data Result Diagrams: 03/26/22 05:25 03/27/22 03:28 Physical Exam Narrative Seen and examined. Bilateral leg weakness, chronic. Difficulty in walking. Patient moved her bowel. General: Alert, Oriented x3, Cooperative HEENT: Atraumatic, PERRLA, EOMI, Normocephalic Oral: No Gingival or Mucosal Lesions/ Ulcerations Neck: Supple, No JVD, Negative Carotid Bruits Lungs: Air entry diminished in bilateral lung bases. No crepitation/rhonchi Cardiovascular: Regular rate, Regular Rhythm, Normal S1, Normal S2, No murmurs Abdomen: Bowel Sounds Present, Soft, Non Tender, Non-Distended. Bowel sounds sluggish : No renal angle tenderness. No suprapubic tenderness. Extremities: No edema, Capillary Refill Less than 3 Seconds Skin: No rashes, No breakdown Musculoskeletal: no tenderness over lumbar spine and paraspinal region. Chronic tenderness over both legs, neuropathy pain. Muscle strength 4/5 at major joints of lower extremities Neurological: Cranial nerves II-XII grossly intact, DTR 2+/4 and Symmetrical, Psych/Mental Status: Flat affect. Assessment & Plan Assessment/Plan (1) Intervertebral disc disorder with radiculopathy of lumbar region: PLAN: This patient was seen in conjunction with JED Jin. I have independently interviewed and examined the patient and reviewed pertinent history, examination findings, laboratory and plan of management. I have reviewed the note and agree with the documented findings with the few additional points. In brief, patient is admitted for acute on chronic back pain. Lumbar MRI shows findings consistent with L3-4 interspinous ligament strain. No compressive disc disease, canal or high-grade foraminal stenosis. Mild degenerative changes. Thoracic spine MRI reported normal. PT and OT ordered. On Lidoderm patch. Pre-CERT pending for custodial. Diabetes mellitus type 2 with uncontrolled hyperglycemia complicated with peripheral neuropathy: Scheduled Lantus and Humalog insulin. Dose titrated up according to Accu-Cheks. 03/24: Accu-Chek levels are high. Lantus and Humalog insulin titrated up. 03/26: Accu-Cheks are in good range. Glucose 106 in BMP Keep the current dose of insulin. 03/27: Glucose is 152, A1c 13.1%. 03/28: Glucose is controlled. Hyponatremia: Hypokalemia corrected. Last potassium 4.2. Isovolemic hyponatremia, sodium 132. Since this is her baseline. 03/26: Sodium is 133. 03/27: Sodium 135, potassium 3.4. Bicarb 33. 1 dose of K-Dur given. CKD stage III and hypertension, hypothyroidism and physical deconditioning debility. Patient other comorbidities are anxiety and depression. BUN/creatinine 18/1.29. Severe constipation Senna S2 tablet twice daily added on top of MiraLAX. On 03/27 Dulcolax 10 mg 1 dose given. Date of last BM documented 03/20. No abdominal tenderness or distention. Last CT abdomen on 01/13/2022 showed no evidence of bowel issues/abnormality. Patient moved her bowel. I have discussed my assessment with Tanisha ADKINS and orders have been reviewed. Charges/Coding Visit Charges Inpatient E&M: 81640 Subs Hosp L2
[2022-03-28 12:10] LABS: Bedside Glucose 209 mg/dL (74-106)
[2022-03-28 15:27] VITALS: BP 104/76; PULSE 83; RESP 16; TEMP 36.4; O2SAT 93
[2022-03-28 16:31] LABS: Bedside Glucose 145 mg/dL (74-106)
[2022-03-28 21:05] VITALS: BP 118/72; PULSE 89; RESP 16; TEMP 36.6; O2SAT 94
[2022-03-28] MEDS: ARIPiprazole 5 MG Tablet 15 MG PO (21:09)
[2022-03-28] MEDS: QUEtiapine 100 MG Tablet PO (21:09)
[2022-03-28] MEDS: 0.9% Saline Lock 10 ML Syringe IV (21:20)
[2022-03-28 21:50] LABS: Bedside Glucose 117 mg/dL (74-106)
[2022-03-29 03:00] VITALS: BP 129/84; PULSE 93; RESP 18; TEMP 36.2; O2SAT 93
[2022-03-29] MEDS: Heparin Injection (Vial) 5,000 UNIT/ML VIAL 5000 UNIT SC ×3 (05:46→20:33)
[2022-03-29] MEDS: cycloBENZAPRine HCl 10 MG Tablet PO ×3 (05:46→20:33)
[2022-03-29] MEDS: Acetaminophen 500 MG Tablet 1000 MG PO ×3 (05:46→20:33)
[2022-03-29 07:00] VITALS: O2SAT 94
[2022-03-29 07:55] LABS: Anion Gap 9 (5-15); BUN 17 mg/dL (7-18); BUN/Creat Ratio 16.3 RATIO (10-20); Calcium,Total 9.5 mg/dL (8.5-10.1); Chloride 97 mmol/L (98-107); Creatinine, Serum 1.04 mg/dL (0.55-1.02); EST Glomerular Filtration Rate 58 mL/min (>60); Est Glom Filt Rate - Afr Amer 70 mL/min (>60); Estimated Creatinine Clearance 42.35 ml/min; Glucose 78 mg/dL (74-106); Potassium 3.5 mmol/L (3.5-5.1); Sodium Level 136 mmol/L (136-145)
[2022-03-29 08:45] VITALS: BP 133/79; PULSE 82; RESP 16; TEMP 36.3; O2SAT 95
--- NOTE | 2022-03-29 09:41 | PN.HOSP_ITS ---
Documented by User: Tanisha Eng NP, MANAGER RETAIL SALES-C 03/29/22 09:43 Subjective Subjective Patient seen and examined. No acute events overnight. Resting comfortably in bed. Pain currently controlled. Awaiting approval to SNF. Objective Data Objective Data Vital Signs: Vital Signs Temp Pulse Resp BP Pulse Ox 97.4 F L 82 16 133/79 H 95 03/29/22 08:45 03/29/22 08:45 03/29/22 08:45 03/29/22 08:45 03/29/22 08:45 Oxygen Flow Rate (L/min) 2 Oxygen Delivery Method Room Air Weight: 165 lb 5.547 oz Body Mass Index (BMI) 32.3 Intake & Output: Intake and Output for Last 24 Hours 03/27/22 03/28/22 03/29/22 23:59 23:59 23:59 Intake Total 1000 / 1120 1969 Output Total 800 / 800 Balance 200 / 320 1969 Lab / Micro Data Result Diagrams: 03/26/22 05:25 03/29/22 05:43 Labs: Laboratory Results - last 24 hr 03/28/22 12:04: POC Glucose 209 H 03/28/22 16:17: POC Glucose 145 H 03/28/22 21:09: POC Glucose 117 H 03/29/22 05:43: Sodium 136, Potassium 3.5, Chloride 97 L, Carbon Dioxide 30.0, Anion Gap 9, BUN 17, Creatinine 1.04 H, Estim Creat Clear Calc 42.35, Est GFR (MDRD) Af Amer 70, Est GFR (MDRD) Non-Af 58 L, BUN/Creatinine Ratio 16.3, Glucose 78, Calcium 9.5 Physical Exam Const alert, oriented x3 and no apparent distress Orientation / Consciousness: awake, oriented to person, oriented to place and oriented to time HEENT normocephalic and moist oral mucous membranes Eyes PERRL, EOMs intact bilaterally and conjunctivae normal Neck no lymphadenopathy Resp normal respiratory effort and clear to auscultation bilaterally Cardio regular rate, regular rhythm and no murmurs Peripheral Pulses: pulses 2+ throughout GI normal to inspection, nondistended, normoactive bowel sounds, non-tender and non-distended Extremity normal to inspection Skin no rashes or lesions noted Lesions: no lesions Rashes: no rashes Trauma: no lacerations or abrasions Neuro CN's II-XII intact bilaterally, no focal motor deficits, no sensory deficits noted and deep tendon reflexes 2+ bilaterally Psych mental status grossly normal and affect normal Assessment & Plan Assessment/Plan (1) Intervertebral disc disorder with radiculopathy of lumbar region: PLAN: 1. Acute on chronic back pain with associated debility-recent MRI 02/24/2022 noted L3-L4 interspinous ligament strain. PT/OT. As needed pain regimen. PT/OT. SNF pending acceptance. Continue as needed pain regimen and scheduled gabapentin. 2. Type 2 diabetes mellitus, uncontrolled-associated peripheral neuropathy. Accu-Cheks with sliding scale insulin. Continue home insulin regimen. Recommend outpatient follow-up with endocrinology. 3. Chronic kidney disease stage IIIa-at baseline. 4. Chronic hyponatremia-suspect pseudohyponatremia due to uncontrolled glucose. Appears stable. 5. Hypothyroidism-continue Synthroid. 6. Bipolar disorder/PTSD-on Abilify, Celexa, Seroquel, alprazolam. 7. Tobacco dependence-encouraged cessation. 8. GERD-continue PPI. DVT prophylaxis- heparin sc This patient was seen by Tanisha Eng NP-C under the supervision of Dr. Prieto. Discharge planning: awaiting approval to SNF. Time spent examining patient, reviewing data and subsequent management of care: 10 minutes Documented by User: Dr. Ramez Prieto MD 03/29/22 15:18 Subjective Subjective Follow-up for chronic back pain. Objective Data Lab / Micro Data Result Diagrams: 03/26/22 05:25 03/29/22 05:43 Physical Exam Narrative Encouraged to ambulate. General: Alert, Oriented x3, Cooperative HEENT: Atraumatic, PERRLA, EOMI, Normocephalic Oral: No Gingival or Mucosal Lesions/ Ulcerations Neck: Supple, No JVD, Negative Carotid Bruits Lungs: Air entry diminished in bilateral lung bases. No crepitation/rhonchi Cardiovascular: Regular rate, Regular Rhythm, Normal S1, Normal S2, No murmurs Abdomen: Bowel Sounds Present, Soft, Non Tender, Non-Distended. Bowel sounds normal : No renal angle tenderness. No suprapubic tenderness. Extremities: No edema, Capillary Refill Less than 3 Seconds Skin: No rashes, No breakdown Musculoskeletal: no tenderness over lumbar spine and paraspinal region. Chronic tenderness over both legs, neuropathy pain. Muscle strength 4/5 at major joints of lower extremities Neurological: Cranial nerves II-XII grossly intact, DTR 2+/4 and Symmetrical, Psych/Mental Status: Flat affect. Assessment & Plan Assessment/Plan (1) Intervertebral disc disorder with radiculopathy of lumbar region: PLAN: This patient was seen in conjunction with JED Jin. I have independently interviewed and examined the patient and reviewed pertinent history, examination findings, laboratory and plan of management. I have reviewed the note and agree with the documented findings with the few additional points. In brief, patient is admitted for acute on chronic back pain. Lumbar MRI shows findings consistent with L3-4 interspinous ligament strain. No compressive disc disease, canal or high-grade foraminal stenosis. Mild degenerative changes. Thoracic spine MRI reported normal. PT and OT ordered. On Lidoderm patch. Pre-CERT pending for senior care. Diabetes mellitus type 2 with uncontrolled hyperglycemia complicated with peripheral neuropathy: Scheduled Lantus and Humalog insulin. Dose titrated up according to Accu-Cheks. 03/24: Accu-Chek levels are high. Lantus and Humalog insulin titrated up. 03/26: Accu-Cheks are in good range. Glucose 106 in BMP Keep the current dose of insulin. 03/27: Glucose is 152, A1c 13.1%. 03/28: Glucose is controlled. Hyponatremia: Hypokalemia corrected. Last potassium 4.2. Isovolemic hyponatremia, sodium 132. Since this is her baseline. 03/26: Sodium is 133. 03/27: Sodium 135, potassium 3.4. Bicarb 33. 1 dose of K-Dur given. 03/29: Sodium 136, potassium 3.5. Potassium replacement ordered CKD stage III and hypertension, hypothyroidism and physical deconditioning debility. Patient other comorbidities are anxiety and depression. BUN/creatinine 18/1.29. BUN/creatinine 17/1.04. On baseline. Severe constipation Senna S2 tablet twice daily added on top of MiraLAX. On 03/27 Dulcolax 10 mg 1 dose given. Date of last BM documented 03/20. No abdominal tenderness or distention. Last CT abdomen on 01/13/2022 showed no evidence of bowel issues/abnormality. Patient moved her bowel. Constipation resolved I have discussed my assessment with MANAGER [employer] SALES, Tanisha and orders have been reviewed. Charges/Coding Visit Charges Inpatient E&M: 34966 Subs Hosp L2
[2022-03-29 09:46] LABS: Bedside Glucose 112 mg/dL (74-106)
[2022-03-29] MEDS: Gabapentin 300 MG Capsule PO ×2 (11:20→16:13)
[2022-03-29] MEDS: Senna/Docusate Sodium 1 Tablet 2 TABLET PO (11:21)
[2022-03-29] MEDS: ALPRAZolam 0.5 MG Tablet PO (11:26)
[2022-03-29 11:45] LABS: Bedside Glucose 126 mg/dL (74-106)
[2022-03-29 14:42] VITALS: BP 111/72; PULSE 84; RESP 18; TEMP 36.3; O2SAT 95
[2022-03-29] MEDS: Potassium Chloride Oral Tablet 20 MEQ 40 MEQ PO (15:54)
[2022-03-29] MEDS: Insulin Lispro 100 UNIT/ML INSULN.PEN SC (15:55)
[2022-03-29] MEDS: Insulin Lispro 100 UNIT/ML INSULN.PEN 10 UNIT SC (15:55)
[2022-03-29 16:11] LABS: Bedside Glucose 204 mg/dL (74-106)
[2022-03-29] MEDS: 0.9% Saline Lock 10 ML Syringe IV (17:41)
[2022-03-29] MEDS: ARIPiprazole 5 MG Tablet 15 MG PO (20:33)
[2022-03-29] MEDS: QUEtiapine 100 MG Tablet PO (20:33)
[2022-03-29 20:45] VITALS: BP 120/84; PULSE 86; RESP 18; TEMP 36.3; O2SAT 93
[2022-03-29 21:05] LABS: Bedside Glucose 131 mg/dL (74-106)
[2022-03-30 02:45] VITALS: BP 116/84; PULSE 88; RESP 18; TEMP 36.2; O2SAT 94
[2022-03-30] MEDS: cycloBENZAPRine HCl 10 MG Tablet PO ×2 (06:13→14:54)
[2022-03-30] MEDS: Heparin Injection (Vial) 5,000 UNIT/ML VIAL 5000 UNIT SC ×2 (06:13→14:54)
[2022-03-30] MEDS: Acetaminophen 500 MG Tablet 1000 MG PO ×2 (06:14→14:53)
[2022-03-30] MEDS: Insulin Lispro 100 UNIT/ML INSULN.PEN 10 UNIT SC ×2 (07:54→11:53)
[2022-03-30 08:01] LABS: Bedside Glucose 92 mg/dL (74-106)
[2022-03-30] MEDS: Gabapentin 300 MG Capsule PO ×2 (08:01→12:00)
[2022-03-30] MEDS: Potassium Chloride Oral Tablet 20 MEQ 40 MEQ PO (08:02)
[2022-03-30 08:05] VITALS: O2SAT 96
--- NOTE | 2022-03-30 08:34 | CASEMGMT ---
GINNA faxed updated PT/OT to [facility]. Awaiting pre-cert. Delores Devries [employer] NEONATAL INTENSIVE CARE NURSE
[2022-03-30 08:40] VITALS: O2SAT 93
[2022-03-30 09:00] VITALS: BP 122/84; PULSE 83; RESP 16; TEMP 36.4; O2SAT 98
[2022-03-30] MEDS: Lidocaine 5% Patch 2 PATCH TOPICAL (09:23)
[2022-03-30] MEDS: Insulin Glargine-YFGN 100 UNIT/ML Pen 35 UNIT SC (09:23)
[2022-03-30] MEDS: ALPRAZolam 0.5 MG Tablet PO (09:28)
[2022-03-30 12:00] LABS: Bedside Glucose 140 mg/dL (74-106)
--- NOTE | 2022-03-30 13:10 | PN.HOSP_ITS ---
Subjective Subjective Patient seen and examined. No acute events overnight. Denies significant pain. Continued generalized weakness. Objective Data Objective Data Vital Signs: Vital Signs Temp Pulse Resp BP Pulse Ox 97.5 F L 83 16 122/84 H 98 03/30/22 09:00 03/30/22 09:00 03/30/22 09:00 03/30/22 09:00 03/30/22 09:00 Oxygen Flow Rate (L/min) 2 Oxygen Delivery Method Room Air Weight: 165 lb 5.547 oz Body Mass Index (BMI) 32.3 Intake & Output: Intake and Output for Last 24 Hours 03/28/22 03/29/22 03/30/22 23:59 23:59 23:59 Intake Total 1969 840 / 840 440 / 440 Balance 1969 840 / 840 440 / 440 Lab / Micro Data Result Diagrams: 03/26/22 05:25 03/29/22 05:43 Labs: Laboratory Results - last 24 hr 03/29/22 15:53: POC Glucose 204 H 03/29/22 20:22: POC Glucose 131 H 03/30/22 07:52: POC Glucose 92 03/30/22 11:51: POC Glucose 140 H Physical Exam Const alert, oriented x3 and no apparent distress Orientation / Consciousness: awake, oriented to person, oriented to place and o riented to time HEENT normocephalic and moist oral mucous membranes Eyes PERRL, EOMs intact bilaterally and conjunctivae normal Neck no lymphadenopathy Resp normal respiratory effort and clear to auscultation bilaterally Cardio regular rate, regular rhythm and no murmurs Peripheral Pulses: pulses 2+ throughout GI normal to inspection, nondistended, normoactive bowel sounds, non-tender and non-distended Extremity normal to inspection Skin no rashes or lesions noted Lesions: no lesions Rashes: no rashes Trauma: no lacerations or abrasions Neuro CN's II-XII intact bilaterally, no focal motor deficits, no sensory deficits noted and deep tendon reflexes 2+ bilaterally Psych mental status grossly normal Mood & Affect: flat affect Assessment & Plan Assessment/Plan (1) Intervertebral disc disorder with radiculopathy of lumbar region: PLAN: 1. Acute on chronic back pain with associated debility-recent MRI 02/24/2022 noted L3-L4 interspinous ligament strain. PT/OT. As needed pain regimen. SNF pending acceptance. Continue as needed pain regimen and scheduled gabapentin. 2. Type 2 diabetes mellitus, uncontrolled-associated peripheral neuropathy. Accu-Cheks with sliding scale insulin. Continue home insulin regimen. Recommend outpatient follow-up with endocrinology. 3. Chronic kidney disease stage IIIa-at baseline. 4. Chronic hyponatremia-suspect pseudohyponatremia due to uncontrolled glucose. Appears stable. 5. Hypothyroidism-continue Synthroid. 6. Bipolar disorder/PTSD-on Abilify, Celexa, Seroquel, alprazolam. 7. Tobacco dependence-encouraged cessation. 8. GERD-continue PPI. DVT prophylaxis- heparin sc This patient was seen by FRANSISCO Campos under the supervision of Dr. Rivera. Discharge planning: awaiting approval to SNF.
--- NOTE | 2022-03-30 14:32 | PCM.DC.SUM ---
Documented by User: Tanisha Eng NP, STUDIO OPERATION ENGINEER-C 03/30/22 14:34 Providers Date of Admission: 03/20/22 Date of Discharge: 03/30/22 Primary Care Physician: Dr. Jarred Lopez MD Reason For Visit: ACUTE ON CHRONIC LOW BACK PAIN Diagnosis Discharge Diagnosis (1) Intervertebral disc disorder with radiculopathy of lumbar region: Status: Chronic Code(s): M51.16 - Intervertebral disc disorders with radiculopathy, lumbar region Medications at Discharge Home Medications rizatriptan 10 mg PO PRN PRN 12/27/17 aripiprazole [Abilify] 15 mg PO QHS 06/20/21 quetiapine [Seroquel] 100 mg PO QHS 06/20/21 pen needle,diabetic, disp unit #100 ea 06/23/21 alprazolam 0.5 mg PO DAILY 03/20/22 cyclobenzaprine 10 mg PO TID PRN #0 tab 03/24/22 gabapentin 300 mg PO TIDCM #60 cap 03/24/22 insulin glargine-yfgn 35 unit SUBCUT DAILY #0 ml 03/24/22 insulin lispro [Humalog KwikPen Insulin] 10 unit SUBCUT TIDAC #0 ml 03/24/22 insulin lispro [Humalog KwikPen Insulin] See Protocol SUBCUT ACHS #0 ml 03/24/22 lidocaine 2 patch TOPICAL DAILY PRN #30 ea 03/24/22 Remove Patch 1 patch TOPICAL DAILY@2200 #0 03/27/22 acetaminophen 1,000 mg PO TID PRN #0 tab 03/27/22 polyethylene glycol 3350 17 g PO DAILY PRN PRN #0 ea 03/27/22 sennosides-docusate sodium [Stool Softener-Stimulant Laxat] 2 tab PO BID #0 tab 03/27/22 Hospital Course Operations None Procedures None Summary of Care Provided Hospital Course: Patient is a 56-year-old female admitted 03/20/2022 due to back and leg pain. 1. Acute on chronic back pain with associated debility-recent MRI 02/24/2022 noted L3-L4 interspinous ligament strain. PT/OT. As needed pain regimen. Continue as needed pain regimen and scheduled gabapentin. SNF for ongoing PT/OT. Follow-up with PCP and pain management. 2. Type 2 diabetes mellitus, uncontrolled-associated peripheral neuropathy. Continue current insulin regimen. Recommend outpatient follow-up with endocrinology. 3. Chronic kidney disease stage IIIa-at baseline. 4. Chronic hyponatremia-suspect pseudohyponatremia due to uncontrolled glucose. Appears stable. 5. Hypothyroidism-continue Synthroid. 6. Bipolar disorder/PTSD-on Abilify, Celexa, Seroquel, alprazolam. 7. Tobacco dependence-encouraged cessation. 8. GERD-continue PPI. 9. Suspected JEAN MARIE-patient noted to have intermittent mild hypoxia with sleeping. Continue supplemental oxygen as needed to maintain O2 at or above 90%. Recommend outpatient follow-up for PSG/overnight trending pulse ox. Physical Exam Const alert, oriented x3 and no apparent distress Orientation / Consciousness: awake, oriented to person, oriented to place and oriented to time HEENT normocephalic and moist oral mucous membranes Eyes PERRL, EOMs intact bilaterally and conjunctivae normal Neck no lymphadenopathy Resp normal respiratory effort and clear to auscultation bilaterally Cardio regular rate, regular rhythm and no murmurs Peripheral Pulses: pulses 2+ throughout GI normal to inspection, nondistended, normoactive bowel sounds, non-tender and non-distended Extremity normal to inspection Skin no rashes or lesions noted Lesions: no lesions Rashes: no rashes Trauma: no lacerations or abrasions Neuro CN's II-XII intact bilaterally, no focal motor deficits, no sensory deficits noted and deep tendon reflexes 2+ bilaterally Psych mental status grossly normal and affect normal This patient was seen by FRANSISCO Campos under the supervision of Dr. Rivera. Weight / BMI Weight Weight: 165 lb 5.547 oz Body Mass Index (BMI) 32.3 ABG / Lab / Microbiology Data Result Diagrams: 03/26/22 05:25 03/29/22 05:43 Laboratory: Laboratory Results - last 24 hr 03/29/22 15:53: POC Glucose 204 H 03/29/22 20:22: POC Glucose 131 H 03/30/22 07:52: POC Glucose 92 03/30/22 11:51: POC Glucose 140 H Meaningful Use Info Meaningful Use Diagnoses (Choose all that apply): None applicable Discharge Plan Admission Admit Date/Time: 03/20/22 17:20 Primary Reason for Your Visit: Acute on chronic back pain Attending Provider: Ana Rivera Primary Care Provider: Jarred Lopez Consulting Providers: Kathia Shine ; Ramez Prieto Discharge Orders/Prescriptions Prescriptions: New cyclobenzaprine 10 mg Tablet 10 mg PO TID PRN (Reason: back spasm) Qty: 0 RF: 0 insulin lispro [Humalog KwikPen Insulin] 100 unit/mL Insulin Pen See Protocol unit subcut ACHS Qty: 0 RF: 0 insulin glargine-yfgn 100 unit/mL (3 mL) Insulin Pen 35 unit subcut DAILY Qty: 0 RF: 0 insulin lispro [Humalog KwikPen Insulin] 100 unit/mL Insulin Pen 10 unit subcut TIDAC Qty: 0 RF: 0 lidocaine 5 % Adhesive Patch,Medicated 2 patch topical DAILY PRN (Reason: back pain) Qty: 30 RF: 0 gabapentin 300 mg Capsule 300 mg PO TIDCM Qty: 60 RF: 0 acetaminophen 500 mg Tablet 1,000 mg PO TID PRN (Reason: pain) Qty: 0 RF: 0 polyethylene glycol 3350 17 gram Powder In Packet 17 g PO DAILY PRN PRN (Reason: constipation) Qty: 0 RF: 0 sennosides-docusate sodium [Stool Softener-Stimulant Laxat] 8.6-50 mg Tablet 2 tab PO BID Qty: 0 RF: 0 Remove Patch 1 patch topical DAILY@2200 Qty: 0 RF: 0 Continued rizatriptan 10 tablet 10 mg PO PRN PRN (Reason: Migraine Symptoms) RF: 0 quetiapine [Seroquel] 100 mg Tablet 100 mg PO QHS RF: 0 aripiprazole [Abilify] 15 mg Tablet 15 mg PO QHS RF: 0 (DME) pen needle,diabetic, disp unit 29 gauge x 1/2 needle See Rx Instructions .ROUTE .MEDSUPPLY Qty: 100 RF: 0 alprazolam 0.5 mg tablet 0.5 mg PO DAILY RF: 0 Referrals / Follow Up: Jacqueline Renteria MD [STAFF PHYSICIAN] - Within 2 Weeks (for back pain 03/31/22 3:45pm) Jarred Lopez MD [Primary Care Provider] - Within 2 Weeks (03/30/22 2:20pm with Dr. Villalobos ) Disposition Disposition (needs filled in before D/C Order can be placed): Shelter Facility Documented by User: Dr. Ana Rivera DO 03/30/22 16:27 Providers Date of Admission: 03/20/22 Reason For Visit: ACUTE ON CHRONIC LOW BACK PAIN Medications at Discharge Home Medications rizatriptan 10 mg PO PRN PRN 12/27/17 aripiprazole [Abilify] 15 mg PO QHS 06/20/21 quetiapine [Seroquel] 100 mg PO QHS 06/20/21 pen needle,diabetic, disp unit #100 ea 06/23/21 alprazolam 0.5 mg PO DAILY 03/20/22 cyclobenzaprine 10 mg PO TID PRN #0 tab 03/24/22 gabapentin 300 mg PO TIDCM #60 cap 03/24/22 insulin glargine-yfgn 35 unit SUBCUT DAILY #0 ml 03/24/22 insulin lispro [Humalog KwikPen Insulin] 10 unit SUBCUT TIDAC #0 ml 03/24/22 insulin lispro [Humalog KwikPen Insulin] See Protocol SUBCUT ACHS #0 ml 03/24/22 lidocaine 2 patch TOPICAL DAILY PRN #30 ea 03/24/22 Remove Patch 1 patch TOPICAL DAILY@2200 #0 03/27/22 acetaminophen 1,000 mg PO TID PRN #0 tab 03/27/22 polyethylene glycol 3350 17 g PO DAILY PRN PRN #0 ea 03/27/22 sennosides-docusate sodium [Stool Softener-Stimulant Laxat] 2 tab PO BID #0 tab 03/27/22 Hospital Course Operations None Procedures None Summary of Care Provided Minutes Spent on Discharge: 36 Hospital Course: Mrs. Brar is a 56-year-old white female who has known chronic low back and leg pain issues who presented to the emergency department on 03/20/2022 with worsening pain. She indicated she was now having leg weakness and was unable to ambulate normally as she had previously. Her was unable to assist her much and she stated she need placement. She evidently had outpatient follow-up and missed her appointment and had not rescheduled. She had already had recent MRIs on 02/24/2022 that noted L3 and L4 interspinous ligament strain. She was seen by physical and Occupational Therapy during her hospital course. She has known history of uncontrolled diabetes and has been referred previously to outpatient endocrinology but has yet to follow-up with them. We have recommended outpatient follow-up after discharge from skilled facility. All of the patient's chronic medical issues have been stable throughout her stay. She was noted to have some mild hypoxia with sleeping and she was maintained on supplemental oxygen at night. We have recommended outpatient polysomnography to be performed after discharge from skilled facility as well. Patient had initially been accepted at the TCU however she had changes in her insurance coverage during her hospitalization on March 25 and based on insurance coverage she was not able to go to the transitional care unit. The precertification was reinitiated and was received approval from her insurance company on 03/30/2022. The patient was discharged in stable condition. As noted above we recommended outpatient follow-up with her PCP in 2 weeks, endocrinology, and pulmonology for an outpatient polysomnography. Discharge diagnoses: Acute on chronic low back pain Interspinous ligament strain Degenerative disc disease Lumbar radiculopathy DM-2 uncontrolled Peripheral neuropathy CKD stage IIIa Chronic hyponatremia Hypothyroidism Bipolar disorder PTSD Tobacco abuse Suspected JEAN MARIE GERD History of substance abuse Physical Exam Const alert, oriented x3, no apparent distress, healthy appearing and well nourished Constitutional Narrative: Obese white female,sitting up in a chair at the bedside, feels well and nontoxic, watching television, nursing at bedside, patient does appear to be older than stated age General Appearance: cooperative, comfortable, well kempt and well developed Orientation / Consciousness: awake Nutritional Appearance: obese HEENT normocephalic, head/scalp atraumatic, hearing grossly normal bilaterally and moist oral mucous membranes HEENT Narrative: Mallampati 2-3, no thrush Eyes PERRL, EOMs intact bilaterally and conjunctivae normal Eyes Narrative: No scleral icterus Neck no lymphadenopathy, supple and no JVD Neck Narrative: Trachea midline, no thyroid enlargement Resp normal respiratory effort, no retractions, no use of accessory muscles and clear to auscultation bilaterally Auscultation: Negative for crackles, rales, rhonchi or wheezes Cardio regular rate, regular rhythm, S1 normal heart sound, S2 normal heart sound, no murmurs, no rub, no gallops, no clicks and no JVD GI normal to inspection, nondistended, normoactive bowel sounds, soft to palpation, non-tender and non-distended Extremity no clubbing, cyanosis or edema Extremity Narrative: 2+ pedal pulses Skin no rashes or lesions noted, no wounds, skin turgor normal and no jaundice Neuro oriented x3, CN's II-XII intact bilaterally, moves all extremities and no focal motor deficits Sensorium / Orientation: awake and alert Speech: speech normal Motor Exam: strength 5/5 throughout Psych affect normal ABG / Lab / Microbiology Data Result Diagrams: 03/26/22 05:25 03/29/22 05:43 Discharge Plan Admission Admit Date/Time: 03/20/22 17:20 Primary Reason for Your Visit: Acute on chronic back pain Attending Provider: Ana Rivera Primary Care Provider: Jarred Lopez Consulting Providers: Kathia Shine ; Ramez Prieto Discharge Orders/Prescriptions Prescriptions: New cyclobenzaprine 10 mg Tablet 10 mg PO TID PRN (Reason: back spasm) Qty: 0 RF: 0 insulin lispro [Humalog KwikPen Insulin] 100 unit/mL Insulin Pen See Protocol unit subcut ACHS Qty: 0 RF: 0 insulin glargine-yfgn 100 unit/mL (3 mL) Insulin Pen 35 unit subcut DAILY Qty: 0 RF: 0 insulin lispro [Humalog KwikPen Insulin] 100 unit/mL Insulin Pen 10 unit subcut TIDAC Qty: 0 RF: 0 lidocaine 5 % Adhesive Patch,Medicated 2 patch topical DAILY PRN (Reason: back pain) Qty: 30 RF: 0 gabapentin 300 mg Capsule 300 mg PO TIDCM Qty: 60 RF: 0 acetaminophen 500 mg Tablet 1,000 mg PO TID PRN (Reason: pain) Qty: 0 RF: 0 polyethylene glycol 3350 17 gram Powder In Packet 17 g PO DAILY PRN PRN (Reason: constipation) Qty: 0 RF: 0 sennosides-docusate sodium [Stool Softener-Stimulant Laxat] 8.6-50 mg Tablet 2 tab PO BID Qty: 0 RF: 0 Remove Patch 1 patch topical DAILY@2200 Qty: 0 RF: 0 Continued rizatriptan 10 tablet 10 mg PO PRN PRN (Reason: Migraine Symptoms) RF: 0 quetiapine [Seroquel] 100 mg Tablet 100 mg PO QHS RF: 0 aripiprazole [Abilify] 15 mg Tablet 15 mg PO QHS RF: 0 (DME) pen needle,diabetic, disp unit 29 gauge x 1/2 needle See Rx Instructions .ROUTE .MEDSUPPLY Qty: 100 RF: 0 alprazolam 0.5 mg tablet 0.5 mg PO DAILY RF: 0 Referrals / Follow Up: Jacqueline Renteria MD [STAFF PHYSICIAN] - Within 2 Weeks (for back pain 03/31/22 3:45pm) Jarred Lopez MD [Primary Care Provider] - Within 2 Weeks (03/30/22 2:20pm with Dr. Villalobos ) Disposition Disposition (needs filled in before D/C Order can be placed): Shelter Facility Charges/Coding Visit Charges Inpatient E&M: 93282 SNF Disch >30 Min
--- NOTE | 2022-03-30 14:43 | PHA.DC.MR ---
Pharmacy Service has performed discharge medication reconciliation for this patient. The patient's discharge medication list was reviewed for discrepancies and discrepancies were resolved. Home Medications rizatriptan 10 mg PO PRN PRN 12/27/17 aripiprazole [Abilify] 15 mg PO QHS 06/20/21 quetiapine [Seroquel] 100 mg PO QHS 06/20/21 pen needle,diabetic, disp unit #100 ea 06/23/21 alprazolam 0.5 mg PO DAILY 03/20/22 cyclobenzaprine 10 mg PO TID PRN #0 tab 03/24/22 gabapentin 300 mg PO TIDCM #60 cap 03/24/22 insulin glargine-yfgn 35 unit SUBCUT DAILY #0 ml 03/24/22 insulin lispro [Humalog KwikPen Insulin] 10 unit SUBCUT TIDAC #0 ml 03/24/22 insulin lispro [Humalog KwikPen Insulin] See Protocol SUBCUT ACHS #0 ml 03/24/22 lidocaine 2 patch TOPICAL DAILY PRN #30 ea 03/24/22 Remove Patch 1 patch TOPICAL DAILY@2200 #0 03/27/22 acetaminophen 1,000 mg PO TID PRN #0 tab 03/27/22 polyethylene glycol 3350 17 g PO DAILY PRN PRN #0 ea 03/27/22 sennosides-docusate sodium [Stool Softener-Stimulant Laxat] 2 tab PO BID #0 tab 03/27/22
--- NOTE | 2022-03-30 14:53 | CASEMGMT ---
Patient has been approved to go to [place]. SW notified Nurse Practitioner, RN, and cross country truck driver. SW completed a PASRR as patient is observation status. GINNA will call [facility] to set up transportation. Delores HOBBS
[2022-03-30 15:00] VITALS: BP 114/86; PULSE 81; RESP 16; TEMP 36.2; O2SAT 96
--- NOTE | 2022-03-30 15:10 | CASEMGMT ---
GINNA called [facility] and spoke with Patrick regarding transportation to [facility]. There was a bit of a mix up Patrick thought SW said patient is going home. GINNA gave him the name and [place] of [facility] [id number]. GINNA then called [facility] and spoke with Carlos regarding transport. Transportation was arranged for 4p via wheelchair. GINNA faxed orders, COVID test, and pickle solution maker time to [facility]. GINNA also spoke with Laura and she did receive everything including pickle solution maker time. GINNA notified RN, patient, and accredited legal secretary. Plan: d/c to [facility] under skilled level of care on a PASRR as patient was observation status in the hospital. [facility] transported via wheelchair at 4p. Delores HOBBS
== END 2022-03-30 14:33 | disposition skilled nursing facility (03) ==
LOC: ED 17:27 → PCU 17:43
PROVIDERS: Internal Medicine; Nurse Practitioner Family; Admitting Provider Internal Medicine; Emergency Provider Student in an Organized Health Care Education/Training Program; PCP Family Medicine; Visit Provider Internal Medicine
DX: M51.16 Intervertebral disc disorders with radiculopathy, lumbar region (principal); F31.9 Bipolar disorder, unspecified; E11.42 Type 2 diabetes mellitus with diabetic polyneuropathy; E11.22 Type 2 diabetes mellitus with diabetic chronic kidney disease; Z79.4 Long term (current) use of insulin; N18.31 Chronic kidney disease, stage 3a; R20.2 Paresthesia of skin; R26.2 Difficulty in walking, not elsewhere classified; F43.10 Post-traumatic stress disorder, unspecified; E03.9 Hypothyroidism, unspecified; E78.00 Pure hypercholesterolemia, unspecified; R62.7 Adult failure to thrive; E87.6 Hypokalemia; G89.29 Other chronic pain; K21.9 Gastro-esophageal reflux disease without esophagitis; E87.1 Hypo-osmolality and hyponatremia; I12.9 Hypertensive chronic kidney disease with stage 1 through stage 4 chronic kidney disease, or unspecified chronic kidney disease; M62.81 Muscle weakness (generalized); Z79.899 Other long term (current) drug therapy; F41.9 Anxiety disorder, unspecified; K59.00 Constipation, unspecified; Z87.891 Personal history of nicotine dependence
CPT/HCPCS: 36415; 80048; 80053; 81001; 82962; 83036; 83735; 85025; 87426; 96361; 96365; 96366; 96372; 96375; 97110; 97162; 97166; 97530; 97535; 99218; 99283; 99406; J7030; A4216; G0378; J2405

== ENCOUNTER → 2022-04-06 | Outpatient (REF) | payer SELFPAY ==
[2022-04-06 08:37] LABS: Hematocrit 34.5 % (37-47); Hemoglobin 11.6 g/dL (12.0-15.0); Mean Corp Hgb Conc 33.6 g/dL (32-36); Mean Corpuscular Hgb 30.5 pg (27.0-32.0); Mean Corpuscular Volume 90.8 fL (81-99); Mean Platelet Vol. 9.2 fl (6.2-12.0); Platelet Count 309 K/mm3 (150-450); RBC Distribution Width CV 13.9 % (11.6-14.6); RBC Distribution Width SD 46.6 fl (35.1-43.9); White Blood Count 6.9 K/mm3 (4.4-11.0)
[2022-04-06 08:52] LABS: Anion Gap 7 (5-15); BUN 16 mg/dL (7-18); BUN/Creat Ratio 14.3 RATIO (10-20); Calcium,Total 9.3 mg/dL (8.5-10.1); Chloride 100 mmol/L (98-107); Creatinine, Serum 1.12 mg/dL (0.55-1.02); EST Glomerular Filtration Rate 53 mL/min (>60); Est Glom Filt Rate - Afr Amer 64 mL/min (>60); Glucose 74 mg/dL (74-106); Potassium 3.8 mmol/L (3.5-5.1); Sodium Level 134 mmol/L (136-145)
== END | disposition home or self-care (01) ==
LOC: OLS.WHLTCC 05:00
PROVIDERS: PCP Family Medicine; Visit Provider Family Medicine
DX: M51.16 Intervertebral disc disorders with radiculopathy, lumbar region (principal); E11.42 Type 2 diabetes mellitus with diabetic polyneuropathy; M62.81 Muscle weakness (generalized); R26.2 Difficulty in walking, not elsewhere classified
CPT/HCPCS: 36415; 80048; 85027

== ENCOUNTER → 2022-04-13 | Outpatient (REF) | payer SELFPAY ==
[2022-04-13 09:05] LABS: Hematocrit 35.8 % (37-47); Hemoglobin 11.6 g/dL (12.0-15.0); Mean Corp Hgb Conc 32.4 g/dL (32-36); Mean Corpuscular Hgb 30.2 pg (27.0-32.0); Mean Corpuscular Volume 93.2 fL (81-99); Mean Platelet Vol. 9.6 fl (6.2-12.0); Platelet Count 284 K/mm3 (150-450); RBC Distribution Width CV 13.9 % (11.6-14.6); RBC Distribution Width SD 47.1 fl (35.1-43.9); Red Blood Count 3.84 M/mm3 (4.2-5.4); White Blood Count 5.8 K/mm3 (4.4-11.0)
[2022-04-13 09:24] LABS: BUN 18 mg/dL (7-18); Creatinine, Serum 1.36 mg/dL (0.55-1.02); EST Glomerular Filtration Rate 42 mL/min (>60); Glucose 59 mg/dL (74-106)
[2022-04-13 09:25] LABS: Anion Gap 8 (5-15); BUN/Creat Ratio 13.2 RATIO (10-20); Calcium,Total 9.3 mg/dL (8.5-10.1); Chloride 99 mmol/L (98-107); Est Glom Filt Rate - Afr Amer 51 mL/min (>60); Sodium Level 135 mmol/L (136-145)
== END | disposition home or self-care (01) ==
LOC: OLS.WHLTCC 05:00
PROVIDERS: PCP Family Medicine; Referring Provider Family Medicine; Visit Provider Family Medicine
DX: M51.16 Intervertebral disc disorders with radiculopathy, lumbar region (principal); E11.42 Type 2 diabetes mellitus with diabetic polyneuropathy; M62.81 Muscle weakness (generalized); R26.2 Difficulty in walking, not elsewhere classified
CPT/HCPCS: 36415; 80048; 85027

== ENCOUNTER → 2022-04-17 | Outpatient (REF) | payer MEDICARE, MEDICAID, SELFPAY ==
[2022-04-17 07:46] LABS: Absolute Lymphocyte Count 2.66 X10^3/uL (0.83-4.51); Absolute Neutrophil Count 2.1 X10^3/uL (2.0-7.7); Basophil# 0.06 X10^3/uL; Basophil% 1.1 % (0-1); Eosinophil# 0.16 X10^3/uL; Hematocrit 34.4 % (37-47); Hemoglobin 11.5 g/dL (12.0-15.0); Lymphocyte # 2.66 X10^3/ul (0.83-4.51); Lymphocyte % 49.4 % (19-41); Mean Corp Hgb Conc 33.4 g/dL (32-36); Mean Corpuscular Hgb 30.7 pg (27.0-32.0); Mean Corpuscular Volume 91.7 fL (81-99); Mean Platelet Vol. 9.3 fl (6.2-12.0); Monocyte% 5.6 % (0-10); NRBC Flagged by Analyzer 0 % (0-5); Neutrophil # 2.13 X10^3/uL (2.7-7.7); Neutrophil % 39.4 % (47-70); Platelet Count 244 K/mm3 (150-450); RBC Distribution Width CV 13.9 % (11.6-14.6); RBC Distribution Width SD 46.6 fl (35.1-43.9); Red Blood Count 3.75 M/mm3 (4.2-5.4); White Blood Count 5.4 K/mm3 (4.4-11.0)
[2022-04-17 08:21] LABS: Anion Gap 8 (5-15); BUN 19 mg/dL (7-18); BUN/Creat Ratio 14.8 RATIO (10-20); Calcium,Total 9.1 mg/dL (8.5-10.1); Chloride 100 mmol/L (98-107); Creatinine, Serum 1.28 mg/dL (0.55-1.02); EST Glomerular Filtration Rate 45 mL/min (>60); Est Glom Filt Rate - Afr Amer 55 mL/min (>60); Glucose 86 mg/dL (74-106); Potassium 3.8 mmol/L (3.5-5.1); Sodium Level 136 mmol/L (136-145)
== END | disposition home or self-care (01) ==
LOC: OLS.WHLTCC 04:00
PROVIDERS: PCP Family Medicine; Visit Provider Family Medicine
DX: E11.42 Type 2 diabetes mellitus with diabetic polyneuropathy (principal); M62.81 Muscle weakness (generalized); M51.16 Intervertebral disc disorders with radiculopathy, lumbar region; R26.2 Difficulty in walking, not elsewhere classified; I95.1 Orthostatic hypotension
CPT/HCPCS: 36415; 80048; 85025

== ENCOUNTER 2022-04-24 14:16 | Observation (INO) | payer MEDICARE, MEDICAID, SELFPAY ==
[2022-04-24] VITALS (15 sets, daily range): BP systolic 76–124; BP diastolic 63–83; PULSE 71–125; RESP 14–20; TEMP 35.6–36.6; O2SAT 89–100; BMI 33.7; BMI 35.4
--- NOTE | 2022-04-24 14:38 | EKG12_ITS ---
Test Reason : CP Blood Pressure : / mmHG Vent. Rate : 077 BPM Atrial Rate : 077 BPM P-R Int : 174 ms QRS Dur : 074 ms QT Int : 426 ms P-R-T Axes : 042 -26 045 degrees QTc Int : 482 ms Normal sinus rhythm Low voltage QRS Septal infarct , age undetermined Inferior infarct , age undetermined Abnormal ECG Confirmed by PETERSON SANTANA, JAEL ([id number]), continuity editor MILE MCMAHAN ([id number]) on 04/28/2022 10:08:15 AM Referred By: ESPERANZA Confirmed By:JAEL WINKLER MD
--- NOTE | 2022-04-24 14:38 | RAD_ITS ---
STUDY: X-RAY CHEST REASON FOR EXAM: Female, 56 years old. Chest pain TECHNIQUE: Single AP portable view of the chest. COMPARISON: Comparison is made with prior study dated 12/12/2020. FINDINGS: EKG electrodes are seen. Elevation of the right hemidiaphragm. Increased linear markings at the right lung base with areas of confluence suggestive of a right basilar atelectasis and/or early infiltrate. There is no demonstrated pleural abnormality. Normal size heart. Normal mediastinum and adryan. Normal visualized pulmonary arteries. There is atherosclerotic calcification of the aortic arch with tortuosity. Normal visualized thoracic spine. Normal visualized ribs, clavicles, and shoulders. There is no demonstrated abnormality of the visualized soft tissue structures of the upper abdomen. RAD/Chest 1 View (Portable) IMPRESSION: Elevation of the right hemidiaphragm with increased markings and areas of confluence at the right lung base suggestive of atelectasis and/or early infiltrate. Electronically Signed: Khoi Al MD at 15:14 EDT ,
--- NOTE | 2022-04-24 14:50 | EDS_ITS ---
HPI History of Present Illness Chief Complaint: Chest Pain Informant: patient Onset/Context/Timing Onset: Today and Hours Activity at onset: gradual Timing: Continuous Quality: Positive for Aching and Dull Location: Substernal Current Severity: Mild Maximum Severity: Mild Worsened By: Nothing Relieved By: Nothing Associated Symptoms: Negative for Nausea, Vomiting or Diaphoresis Narrative Narrative: 56-year-old female history of diabetes, hypertension and kidney stones. Was lying in bed today about 2 hours prior to arrival and started getting left-sided parasternal chest discomfort. Started around 12:15 PM today. This was at rest. She has had no recent exertional chest pain or dyspnea. She denies any radiation of her back or left arm or jaw may be possibly to her neck. She is never had any cardiac disease. No prior stents. She is never had a cardiac catheterization. She has had a stress test which was negative but states that was years ago. She denies any history of DVT or PE. She did have recent hospitalization. She denies any pleuritic pain. She denies any hemoptysis. No calf pain or swelling. Prior Similar Symptoms: No Recent Illness/Hospitalization: Yes CVD Risk Factors: Positive for Hypertension and Diabetes; Negative for Smoking PE Risk Factors: Positive for Recent Immobilization; Negative for Recent Travel/Surgery, Prior DVT or PE, Cancer or OCP + Smoking + >/=35 TAD Risk Factors: Negative for Marfan's Syndrome [facility] Medical History (Updated 04/24/22 @ 16:[address] Bronson Retana MD) Carpal tunnel syndrome Depression Diabetes Fatigue Former smoker HTN (hypertension) Intervertebral disc disorder with radiculopathy of lumbar region Intervertebral disc disorder with radiculopathy of lumbar region Kidney disease Kidney stones Migraines Opiate abuse, continuous Pure hypercholesterolemia Stomach ulcer Thyroid disease Type II diabetes mellitus, uncontrolled Home Medications rizatriptan 10 mg tablet 10 mg PO PRN PRN Migraine Symptoms 12/27/17 [History Last Taken Unknown] aripiprazole 15 mg tablet (Abilify) 15 mg PO QHS sleep 06/20/21 [History Last Taken 03/19/22] quetiapine 100 mg tablet (Seroquel) 100 mg PO QHS sleep 06/20/21 [History Last Taken 03/19/22] pen needle,diabetic, disp unit 29 gauge x 1/2, remover and disposal unit #100 ea 06/23/21 [Rx Last Taken Unknown] alprazolam 0.5 mg tablet 0.5 mg PO DAILY mood 03/20/22 [History Last Taken 03/19/22] cyclobenzaprine 10 mg tablet 10 mg PO TID PRN back spasm #0 tabs 03/24/22 [Rx Last Taken Unknown] gabapentin 300 mg capsule 300 mg PO TIDCM #60 caps 03/24/22 [Rx Last Taken Unknown] insulin glargine-yfgn 100 unit/mL (3 mL) subcutaneous pen 35 unit (0.35 mL) subcut DAILY #0 mL 03/24/22 [Rx Last Taken Unknown] insulin lispro 100 unit/mL subcutaneous pen (Humalog KwikPen (U-100) Insulin) 10 unit (0.1 mL) subcut TIDAC #0 mL 03/24/22 [Rx Last Taken Unknown] insulin lispro 100 unit/mL subcutaneous pen (Humalog KwikPen (U-100) Insulin) See Protocol subcut ACHS #0 mL 03/24/22 [Rx Last Taken Unknown] lidocaine 5 % topical patch 2 patch topical DAILY PRN back pain #30 ea 03/24/22 [Rx Last Taken Unknown] Remove Patch 1 patch topical DAILY@2200 ##0 03/27/22 [Rx Last Taken Unknown] acetaminophen 500 mg tablet 1,000 mg PO TID PRN pain #0 tabs 03/27/22 [Rx Last Taken Unknown] polyethylene glycol 3350 17 gram oral powder packet 17 g PO DAILY PRN PRN constipation #0 ea 03/27/22 [Rx Last Taken Unknown] sennosides 8.6 mg-docusate sodium 50 mg tablet (Stool Softener-Stimulant Laxative) 2 tab PO BID #0 tabs 03/27/22 [Rx Last Taken Unknown] Allergy/AdvReac Type Severity Reaction Status Date / Time celecoxib [From Celebrex] Allergy Itching Verified 04/24/22 14:16 ciprofloxacin [From Cipro] Allergy Swelling Verified 04/24/22 14:16 ciprofloxacin HCl Allergy Swelling Verified 04/24/22 14:16 [From Cipro] codeine Allergy Hives Verified 04/24/22 14:16 ibuprofen Allergy Hives Verified 04/24/22 14:16 naproxen Allergy Hives Verified 04/24/22 14:16 Penicillins Allergy Hives Verified 04/24/22 14:16 tramadol HCl [From Ultram] Allergy Hives Verified 04/24/22 14:16 ketorolac [From Toradol] AdvReac Swelling Verified 04/24/22 14:16 Family History Other CVA (cerebral vascular accident) Cancer Diabetes Myocardial infarction Surgical History H/O: hysterectomy Hx of section S/P trigger finger release Social History Smoking Status: Former smoker alcohol intake: never ROS ROS ED ROS Narrative Denies recent illness Review of Systems ROS Unobtainable: Denies due to encephalopathy Constitutional Constitutional ED: Denies chills Eyes Eyes: Denies none Cardiovascular Cardiovascular: Reports as per HPI and chest pain; Denies palpitations Respiratory/Chest Respiratory/Chest: Denies cough Gastrointestinal Gastrointestinal: Denies abdominal pain Genitourinary Genitourinary ED: Denies dysuria Musculoskeletal Musculoskeletal: Denies arthralgias Integumentary Denies abscess Neurologic Neurologic: Denies headache(s) Psychiatric Psychiatric: Denies anxiety Endocrine Endocrinology: Denies cold intolerance Hematologic/Lymphatic Hematologic/Lymphatic: Denies easy bleeding Allergic/Immunologic Allergic/Immunologic ED: Denies mouth swelling EXAM Physical Exam Narrative Exam Narrative: 13-year-old female no acute distress. Vital signs are stable. She is afebrile. Her initial pulse ox was 89% on room air consistent with hypoxia. On 2 L she is 98%. H EENT exam unremarkable. Moist remembers. Neck nontender. No JVD. No lymphadenopathy. Lungs clear to auscultation bilaterally. Heart regular rate and rhythm rate about 80 no murmur. Chest wall is reproducible chest wall pain along the left parasternal region. There is no ecchymosis or bruising. There is no subcu air or crepitance. Abdomen soft nontender. Moving all 4 extremities. Radial pulses are equal symmetrical. Calves are nontender without edema or cords. She is awake alert. Const Vital Signs: 04/24/22 14:17 04/24/22 14:20 04/24/22 14:38 Temperature 96.0 F L Temperature Source Temporal Pulse Rate 85 Respiratory Rate 18 Respiratory Effort Blood Pressure 96/63 Blood Pressure Mean 74 Pulse Ox 89 98 99 Oxygen Delivery Method Room Air Nasal Cannula Nasal Cannula Oxygen Flow Rate (L/min) 2 2 04/24/22 14:56 04/24/22 15:02 04/24/22 16:17 Temperature Temperature Source Pulse Rate 82 77 Respiratory Rate 14 16 Respiratory Effort Normal Blood Pressure 92/69 98/71 Blood Pressure Mean 76 80 Pulse Ox 99 100 Oxygen Delivery Method Nasal Cannula Nasal Cannula Oxygen Flow Rate (L/min) 2 2 04/24/22 16:43 Temperature Temperature Source Pulse Rate 78 Respiratory Rate Respiratory Effort Blood Pressure 108/79 Blood Pressure Mean Pulse Ox Oxygen Delivery Method Oxygen Flow Rate (L/min) Positive well nourished, well developed and obese; Negative for cachectic, contractures or unkempt General Appearance ED: well developed; Negative for unkempt, cachectic, contractures or pallor Nutritional Appearance: obese; Negative for cachectic HEENT Reports moist mucous membranes normocephalic and atraumatic; Negative for trauma or tenderness Eyes EOMs intact bilaterally Neck no lymphadenopathy, supple and no JVD General: Negative for tenderness Chest Wall inspection of chest normal; Negative for palpation of chest normal Chest Narrative: Tenderness to the left chest wall parasternal. No change in appearance. Chest: tenderness Resp normal respiratory effort and clear to auscultation bilaterally Effort and Inspection: Negative for respiratory distress or pain with movement Auscultation: Negative for rales, rhonchi or wheezes Cardio regular rate, regular rhythm, S1 normal heart sound, S2 normal heart sound and no murmurs Rate: Negative for bradycardia Rhythm: Negative for abnormal rhythm GI normal to inspection, nondistended, normoactive bowel sounds, soft to palpation, non-tender, non-distended and no masses; Negative for hepatosplenomegaly Palpation: Negative for splenomegaly or mass Back/Spine no CVA tenderness and no thoracic nor lumbar tenderness General Back: Negative for CVA tenderness Cervical Spine: Negative for cervical spine tenderness Extremity General Extremety ED: Negative for edema or tenderness General Extremity: Negative for edema Neuro oriented x3 Sensorium / Orientation: awake, alert, oriented to person, oriented to place and oriented to time; Negative for confused, lethargic or stuporous Motor Exam: strength 5/5 throughout; Negative for general weakness or strength abnormal Psych mental status grossly normal Appearance: Negative for unkempt Attitude: No agitated Mood & Affect: Negative for depressed, anxious or tearful Skin no rashes or lesions noted and no wounds General Skin Exam: Negative for jaundice or pallor Rashes: No rashes noted Trauma: Negative for abrasion Heart Score History: Moderately Suspicious ECG: Normal Age: >45 - <65 years Risk Factors: 1 or 2 Risk Factors Troponin: </= Normal Limit Score: 3 MDM MDM MDM Narrative Medical decision making narrative: Dr. [id number] female with reproducible chest pain. But does have hypoxia in triage. Cardiac work-up and D-dimer being obtained. Patient's urine is above normal at 57. She is diabetic. She has risk. I spoke to the hospitalist will bring in for further evaluation. She is receiving sublingual nitro x1. Which did nothing for the patient's pain. She will be giv en IV morphine and Zofran. I spoken to the hospitalist she will be admitted for chest pain of uncertain etiology with an abnormal troponin. Lab Data Attestation: I reviewed the patient's lab results. Lab results narrative: CBC shows a white count of 5. H&H 11.4 and 34. Platelets 254. Electrolytes gap at 9 BUN and creatinine of 17 and 1. Glucose of 180. Initial troponin is elevated at 57. Second troponin pending. D-dimer is negative at 0.32. Second EKG is unchanged. Labs: Laboratory Results - last 24 hr 04/24/22 04/24/22 04/24/22 13:58 13:58 13:58 WBC 5.4 RBC 3.73 L Hgb 11.4 L Hct 34.1 L MCV 91.4 MCH 30.6 MCHC 33.4 RDW Std Deviation 46.6 H RDW Coeff of Anisa 14.0 Plt Count 254 MPV 9.5 Immature Gran % (Auto) 1.100 H Neut % (Auto) 49.1 Lymph % (Auto) 42.6 H [place] % (Auto) 3.9 Eos % (Auto) 2.2 Baso % (Auto) 1.1 H Absolute Neuts (auto) 2.6 Absolute Lymphs (auto) 2.29 Nucleated RBC % 0 D-Dimer Quant (PE/DVT) 0.32 Sodium 138 Potassium 3.9 Chloride 101 Carbon Dioxide 28.0 Anion Gap 9 BUN 17 Creatinine 1.08 H Estim Creat Clear Calc 40.78 Est GFR (MDRD) Af Amer 67 Est GFR (MDRD) Non-Af 55 L BUN/Creatinine Ratio 15.7 Glucose 180 H Calcium 9.3 Troponin I High Sens 57 H Radiography Chest X-Ray - ED: 1 View, Read by ED Physician, Heart, Mediastinum, Bony Structures, No Acute Disease and Chronic Changes Diagnostic Testing: Clinical Impression(s) from Imaging Studies Chest X-Ray 04/24/22 14:38 IMPRESSION: Elevation of the right hemidiaphragm with increased markings and areas of confluence at the right lung base suggestive of atelectasis and/or early infiltrate. Electronically Signed: Khoi Al MD at 15:14 EDT , Chest x-ray, portable, single view interpreted by myself and the radiologist shows no acute abnormality. There is a density in the right lower lobe which could be scarring versus atelectasis versus other. Rhythm Strip Rhythm Strip: Sinus Rhythm Rate: 87 Ectopy: None EKG Initial EKG: Attestation: I personally reviewed and interpreted this EKG as follows: Interpretation: No Acute Injury Pattern Comments: Normal sinus rhythm rate 87 no acute signs of RI or ischemia. 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 Unchanged from prior EKG from November 2020. Follow-up EKG: Attestation: I personally reviewed and interpreted this EKG as follows: Interpretation: Sinus Rhythm and No Acute Injury Pattern Comments: Repeat EKG at 4:41 PM shows a sinus rhythm rate of 77 no acute changes from the prior. Discharge Plan Triage Chief Complaint: Chest Pain ED Provider: Bronson Retana Dx/Rx/DC Orders Clinical Impression: Chest pain, Elevated troponin, History of diabetes mellitus Prescriptions: No Action rizatriptan 10 tablet 10 mg PO PRN PRN (Reason: Migraine Symptoms) Label Comments: quetiapine [Seroquel] 100 mg Tablet 100 mg PO QHS aripiprazole [Abilify] 15 mg Tablet 15 mg PO QHS (DME) pen needle,diabetic, disp unit 29 gauge x 1/2 needle See Rx Instructions .ROUTE .MEDSUPPLY Qty: 100 0RF Rx Instructions: As directed alprazolam 0.5 mg tablet 0.5 mg PO DAILY cyclobenzaprine 10 mg Tablet 10 mg PO TID PRN (Reason: back spasm) Qty: 0 0RF insulin lispro [Humalog KwikPen Insulin] 100 unit/mL Insulin Pen See Protocol subcut ACHS Qty: 0 0RF Protocol: 5. Sliding Scale Insulin High Dosing Condition: 150-209 mg/dl = 3 units Condition: 210-259 mg/dl = 6 units Condition: 260-324 mg/dl = 9 units Condition: 325-374 mg/dl = 12 units Condition: 375-409 mg/dl = 14 units Condition: 410-449 mg/dl = 16 units Condition: Greater than 449 call physician Protocol Text: - Use for Total Daily Dose of Insulin 81-120 units - Very insulin resistant or septic patients HIGH DOSING ALGORITHM insulin glargine-yfgn 100 unit/mL (3 mL) Insulin Pen 35 unit subcut DAILY Qty: 0 0RF insulin lispro [Humalog KwikPen Insulin] 100 unit/mL Insulin Pen 10 unit subcut TIDAC Qty: 0 0RF lidocaine 5 % Adhesive Patch,Medicated 2 patch topical DAILY PRN (Reason: back pain) Qty: 30 0RF Protocol: *Topical Application Instructions APPLICATION INSTRUCTIONS: apply to lower back/hip gabapentin 300 mg Capsule 300 mg PO TIDCM Qty: 60 0RF acetaminophen 500 mg Tablet 1,000 mg PO TID PRN (Reason: pain) Qty: 0 0RF polyethylene glycol 3350 17 gram Powder In Packet 17 g PO DAILY PRN PRN (Reason: constipation) Qty: 0 0RF sennosides-docusate sodium [Stool Softener-Stimulant Laxat] 8.6-50 mg Tablet 2 tab PO BID Qty: 0 0RF Remove Patch 1 patch topical DAILY@2200 Qty: 0 0RF Primary Care Provider: Jarred Lopez Referrals: Jarred Lopez MD [Primary Care Provider] -
[2022-04-24 14:52] LABS: Absolute Lymphocyte Count 2.29 X10^3/uL (0.83-4.51); Absolute Neutrophil Count 2.6 X10^3/uL (2.0-7.7); Basophil# 0.06 X10^3/uL; Basophil% 1.1 % (0-1); Eosinophil# 0.12 X10^3/uL; Eosinophils% 2.2 % (0-5); Hematocrit 34.1 % (37-47); Hemoglobin 11.4 g/dL (12.0-15.0); Lymphocyte # 2.29 X10^3/ul (0.83-4.51); Lymphocyte % 42.6 % (19-41); Mean Corp Hgb Conc 33.4 g/dL (32-36); Mean Corpuscular Hgb 30.6 pg (27.0-32.0); Mean Corpuscular Volume 91.4 fL (81-99); Mean Platelet Vol. 9.5 fl (6.2-12.0); Monocyte# 0.21 X10^3/uL; Monocyte% 3.9 % (0-10); NRBC Flagged by Analyzer 0 % (0-5); Neutrophil # 2.64 X10^3/uL (2.7-7.7); Neutrophil % 49.1 % (47-70); Platelet Count 254 K/mm3 (150-450); RBC Distribution Width SD 46.6 fl (35.1-43.9); Red Blood Count 3.73 M/mm3 (4.2-5.4); White Blood Count 5.4 K/mm3 (4.4-11.0)
[2022-04-24 15:10] LABS: Anion Gap 9 (5-15); BUN 17 mg/dL (7-18); BUN/Creat Ratio 15.7 RATIO (10-20); Calcium,Total 9.3 mg/dL (8.5-10.1); Chloride 101 mmol/L (98-107); Creatinine, Serum 1.08 mg/dL (0.55-1.02); EST Glomerular Filtration Rate 55 mL/min (>60); Est Glom Filt Rate - Afr Amer 67 mL/min (>60); Estimated Creatinine Clearance 40.78 ml/min; Glucose 180 mg/dL (74-106); Potassium 3.9 mmol/L (3.5-5.1); Sodium Level 138 mmol/L (136-145); Troponin-I HS 57 pg/mL (3.0-54.0)
--- NOTE | 2022-04-24 15:22 | ED.RN ---
CALLED LAB REGARDING PT BLOODWORK. WAS DRAWN PER [facility] AND SENT PER [facility] WORKER TO LAB
[2022-04-24 16:35] LABS: D-Dimer Quantitative (DVT/PE) 0.32 FEU/ug/m (0.27-0.49)
--- NOTE | 2022-04-24 16:37 | EKG12_ITS ---
Test Reason : CP Blood Pressure : / mmHG Vent. Rate : 087 BPM Atrial Rate : 087 BPM P-R Int : 168 ms QRS Dur : 070 ms QT Int : 392 ms P-R-T Axes : 042 -18 049 degrees QTc Int : 471 ms Normal sinus rhythm Low voltage QRS Septal infarct , age undetermined Inferior infarct , age undetermined Abnormal ECG Confirmed by PETERSON SANTANA, JAEL ([id number]), dictionary editor MILE MCMAHAN ([id number]) on 04/28/2022 10:10:54 AM Referred By: Confirmed By:JAEL WINKLER MD
[2022-04-24] MEDS: Nitroglycerin SL (ED/IMG/CATH) 0.4 MG TABLET SL (16:43)
--- NOTE | 2022-04-24 16:54 | NURSING ---
PCU OBS SEMENTI CP, DM, HTN
[2022-04-24] MEDS: Ondansetron 4 MG/2 ML Vial IV (16:56)
[2022-04-24] MEDS: Morphine 4 MG/ML Syringe IV (16:56)
[2022-04-24 17:27] LABS: Troponin-I HS 56 pg/mL (3.0-54.0)
--- NOTE | 2022-04-24 17:37 | HP.PCM_ITS ---
HPI - General General Date of Admission: 04/24/22 Date of Service: 04/24/22 Chief Complaint: chest pain HPI Narrative SURI OCONNOR, is a 56 YO F with a PMH of DM II, HLD, chronic back pain with radicular pain, migraines, depression, history of opiate abuse, peptic ulcer disease, thyroid disease and obesity who presented to the ED c/o chest pain that started when she was lying in bed at the [place] where she is currently residing. The chest pain is substernal and left chest and radiates into her back. It increases with movement and with deep breaths. She denies any prior history of chest pain. She denies shortness of breath and also denies diaphoresis. She denies palpitations. EKG in the ED showed poor R wave progression with NSR. No ST elevation and no significant ST depression. The initial troponin in the emergency department was mildly increased at 57 however the second troponin was 56. Creatinine is 1.08 with a GFR of 55 making her stage IIIa chronic renal failure. Potassium is within normal limits. D-dimer was normal. She has a chronic mild anemia with normochromic normocytic indices. Chest x-ray showed elevation of the right hemidiaphragm with areas of confluence at the right lung base more likely than not secondary to atelectasis. Lungs were clear to auscultation on physical exam. She was admitted to PCU and if the third set of CE's is negative she will have a chemical nuclear stress in the AM. The CP is reproducible with palpation of the chest and of the back medial to the left scapula. [facility] Medical History (Updated 04/24/22 @ 20:[address] Yanna Briscoe, ) Carpal tunnel syndrome Chronic back pain Depression Diabetes Fatigue Former smoker HTN (hypertension) Hyperlipidemia Intervertebral disc disorder with radiculopathy of lumbar region Intervertebral disc disorder with radiculopathy of lumbar region Kidney disease Kidney stones Migraines Opiate abuse, continuous Pure hypercholesterolemia Stomach ulcer Thyroid disease Type II diabetes mellitus, uncontrolled Home Medications rizatriptan 10 mg tablet 10 mg PO PRN PRN Migraine Symptoms 12/27/17 [History Last Taken Unknown] quetiapine 100 mg tablet (Seroquel) 100 mg PO QHS sleep 06/20/21 [History Last Taken 04/23/22] pen needle,diabetic, disp unit 29 gauge x 1/2, remover and disposal unit #100 ea 06/23/21 [Rx Last Taken Unknown] alprazolam 0.5 mg tablet 0.5 mg PO DAILY mood 03/20/22 [History Last Taken 04/24/22] gabapentin 300 mg capsule 300 mg PO TIDCM #60 caps 03/24/22 [Rx Last Taken 04/24/22] insulin glargine-yfgn 100 unit/mL (3 mL) subcutaneous pen 35 unit (0.35 mL) subcut DAILY #0 mL 03/24/22 [Rx Last Taken 04/24/22] insulin lispro 100 unit/mL subcutaneous pen (Humalog KwikPen (U-100) Insulin) 10 unit (0.1 mL) subcut TIDAC #0 mL 03/24/22 [Rx Last Taken 04/24/22] acetaminophen 500 mg tablet 1,000 mg PO TID PRN pain #0 tabs 03/27/22 [Rx Last Taken 04/23/22 16:40] polyethylene glycol 3350 17 gram oral powder packet 17 g PO DAILY PRN PRN constipation #0 ea 03/27/22 [Rx Last Taken Unknown] sennosides 8.6 mg-docusate sodium 50 mg tablet (Stool Softener-Stimulant Laxative) 2 tab PO BID #0 tabs 03/27/22 [Rx Last Taken Unknown] aluminum-mag hydroxide-simethicone 400 mg-400 mg-40 mg/5 mL oral susp (Mylanta Maximum Strength) 15 ml PO Q4H PRN Stomach Upset 04/24/22 [History Last Taken 04/24/22] baclofen 10 mg tablet 10 mg PO Q6H PRN Pain 04/24/22 [History Last Taken 04/24/22 05:18] insulin lispro 100 unit/mL subcutaneous pen (Humalog KwikPen (U-100) Insulin) See Protocol subcut ACHS 04/24/22 [History Last Taken 04/24/22] lidocaine 4 % topical patch 2 patch topical DAILY PRN Back Pain 04/24/22 [Histo ry Last Taken 04/24/22] Allergy/AdvReac Type Severity Reaction Status Date / Time celecoxib [From Celebrex] Allergy Itching Verified 04/24/22 14:16 ciprofloxacin [From Cipro] Allergy Swelling Verified 04/24/22 14:16 ciprofloxacin HCl Allergy Swelling Verified 04/24/22 14:16 [From Cipro] codeine Allergy Hives Verified 04/24/22 14:16 ibuprofen Allergy Hives Verified 04/24/22 14:16 naproxen Allergy Hives Verified 04/24/22 14:16 Penicillins Allergy Hives Verified 04/24/22 14:16 tramadol HCl [From Ultram] Allergy Hives Verified 04/24/22 14:16 ketorolac [From Toradol] AdvReac Swelling Verified 04/24/22 14:16 Family History Other CVA (cerebral vascular accident) Cancer Diabetes Myocardial infarction Surgical History H/O: hysterectomy Hx of section S/P trigger finger release Social History (Updated 04/24/22 @ 20:[address] Yanna Briscoe DO) household members: other details: currently living in a NH for therapy for chronic back pain housing: senior living Smoking Status: Former smoker Tobacco: How many years used: 46 how long ago did patient quit smoking: She quit smoking in August or September of 2021. She started smoking at 14 alcohol intake: never substance use type: other details: has a hx of chronic opioid use ROS Constitutional Constitutional: Denies anorexia, change in weight, chills, fatigue, fever(s), night sweats or weakness Eyes Eyes: Denies blurry vision, change in vision, eye pain or loss of vision ENT HEENT: Denies abnormal hearing, dysphagia, headache(s), hearing loss, nasal congestion or sore throat Cardiovascular Cardiovascular: Reports chest pain and chest pain at rest; Denies dyspnea on exertion, edema, lightheadedness, orthopnea, palpitations, paroxysmal nocturnal dyspnea or syncope Respiratory/Chest Respiratory/Chest: Denies cough, dyspnea, shortness of breath at rest, shortness of breath with exertion or wheezing Gastrointestinal Gastrointestinal: Denies abdominal pain, constipation, diarrhea, dyspepsia, hematemesis, hematochezia, nausea or vomiting Genitourinary Genitourinary: Denies dysuria, hematuria, nocturia, urinary frequency, urinary hesitancy, urinary incontinence or urinary urgency Musculoskeletal Musculoskeletal: Reports back pain; Denies joint pain, joint swelling or neck pain Integumentary Integumentary: Denies jaundice, unusual bruising or wounds Neurologic Neurologic: Denies confusion, disequilibrium, dizziness, focal weakness, headache(s), paresthesias, seizures or tremor(s) Psychiatric Psychiatric: Denies anxiety, depression, homicidal ideation or suicidal ideation Endocrine Endocrinology: Denies change in body appearance, polydipsia or polyuria Hematologic/Lymphatic Hematologic/Lymphatic: Denies easy bleeding, easy bruising or lymphadenopathy Allergic/Immunologic Allergic/Immunologic: Denies rhinitis, eczemia or asthma Vital Signs Vital Signs Vital Signs: 04/24/22 14:17 04/24/22 14:20 04/24/22 14:38 Temperature 96.0 F L Temperature Source Temporal Pulse Rate 85 Respiratory Rate 18 Respiratory Effort Blood Pressure 96/63 Blood Pressure Mean 74 Pulse Ox 89 98 99 Oxygen Delivery Method Room Air Nasal Cannula Nasal Cannula Oxygen Flow Rate (L/min) 2 2 04/24/22 14:56 04/24/22 15:02 04/24/22 16:17 Temperature Temperature Source Pulse Rate 82 77 Respiratory Rate 14 16 Respiratory Effort Normal Blood Pressure 92/69 98/71 Blood Pressure Mean 76 80 Pulse Ox 99 100 Oxygen Delivery Method Nasal Cannula Nasal Cannula Oxygen Flow Rate (L/min) 2 2 04/24/22 16:43 04/24/22 16:50 04/24/22 17:01 Temperature 97.9 F Temperature Source Temporal Pulse Rate 78 125 H 72 Respiratory Rate 18 16 Respiratory Effort Blood Pressure 108/79 112/83 H 100/67 Blood Pressure Mean 92 78 Pulse Ox 96 96 Oxygen Delivery Method Room Air Nasal Cannula Oxygen Flow Rate (L/min) 2 Weight Weight: 173 lb Body Mass Index (BMI) 33.7 Physical Exam Narrative She is calm and she is holding her Left arm against her chest flexed at the elbow because it makes the chest and back pain better. The pain increases with deep breathing and also with movement. When I had her lift her left arm up above her head she grimaced. Const General Appearance: cooperative, well kempt and well developed HEENT HEENT Narrative: Mucous membranes are moist and there are no oral pharyngeal lesions. Eyes Eyes Narrative: Pupils are equal round and reactive to light. Extraocular muscles are intact. No conjunctival injection and no scleral icterus. She has no mattering of the eyelids and no discharge from the eyes. Neck Neck Narrative: The neck is supple and carotid upstrokes were brisk with good volume. There were no bruits heard. Chest Chest Narrative: There is symmetric chest rise. She has pain with palpation of the left sternal border that radiates from the left sternal border on the rib into the back. Resp Resp Narrative: She appears to be in no respiratory distress. She has a normal respiratory rate and normal air exchange. She is clear to auscultation throughout with a good effort. Cardio Cardio Narrative: Heart sounds are very distant and I suspect this may be due to increased AP diameter of the chest and to her body habitus. The heart is regular with no murmurs or gallops appreciated. There is no ectopy. GI GI Narrative: The abdomen is obese but soft, nontender to palpation with normal bowel sounds. Back/Spine Back/Spine Narrative: She has pain in the left upper and mid thoracic area with palpation and it is medial to the scapula. Extremity Extremity Narrative: Dorsalis pedis pulses are 3/3 bilaterally. She has no calf pain. There is no ankle edema present and she has no clubbing or cyanosis of her digits. Skin Skin Narrative: The skin is dry but she has no rashes and no wounds. Neuro Neuro Narrative: She is alert and oriented x3 with no focal motor deficits no sensory loss. Psych Psych Narrative: Calm, makes god eye contact, no flight of ideas and she is able to focus and concentrate. Results Lab / Micro Data Result Diagrams: 04/24/22 13:58 04/24/22 13:58 Labs: Laboratory Results - last 24 hr 04/24/22 13:58: WBC 5.4, RBC 3.73 L, Hgb 11.4 L, Hct 34.1 L, MCV 91.4, MCH 30.6, MCHC 33.4, RDW Std Deviation 46.6 H, RDW Coeff of Anisa 14.0, Plt Count 254, MPV 9.5, Immature Gran % (Auto) 1.100 H, Neut % (Auto) 49.1, Lymph % (Auto) 42.6 H, [place] % (Auto) 3.9, Eos % (Auto) 2.2, Baso % (Auto) 1.1 H, Absolute Neuts (auto) 2.6, Absolute Lymphs (auto) 2.29, Nucleated RBC % 0 04/24/22 13:58: Sodium 138, Potassium 3.9, Chloride 101, Carbon Dioxide 28.0, Anion Gap 9, BUN 17, Creatinine 1.08 H, Estim Creat Clear Calc 40.78, Est GFR (MDRD) Af Amer 67, Est GFR (MDRD) Non-Af 55 L, BUN/Creatinine Ratio 15.7, Glucose 180 H, Calcium 9.3, Troponin I High Sens 57 H 04/24/22 13:58: D-Dimer Quant (PE/DVT) 0.32 04/24/22 16:50: Troponin I High Sens 56 H Rhythm Strip Rhythm Strip: Sinus Rhythm Rate: 87 Ectopy: None Radiology Impression Chest X-Ray 04/24/22 14:38 IMPRESSION: Elevation of the right hemidiaphragm with increased markings and areas of confluence at the right lung base suggestive of atelectasis and/or early infiltrate. Electronically Signed: Khoi Al MD at 15:14 EDT , Assessment & Plan Assessment/Plan (1) Chest pain: PLAN: This is more likely than not due to musculoskeletal pain......I suspect she has a rib lesion. The pain is reproducible and it occurred at rest. she has increased pain with deep breaths and with movement but, she does have several risak factors and I \think we need to R/O CAD. (2) Elevated troponin: PLAN: Not trending (3) History of diabetes mellitus: (4) Hyperlipidemia: (5) Obesity (BMI 35.0-39.9 without comorbidity): (6) Chronic renal failure, stage 3a: (7) Normochromic normocytic anemia: (8) Opiate abuse, continuous: (9) Depressive disorder: PLAN: A (10) Chronic back pain: PLAN: Plan Admit to PCU Finish the CE series and if the CE's do not trend up will get a chemical nuclear stress test in the AM and an ECHO has been ordered. She is low risk for DVT and admitted for observation so no DVT prophylaxis necessary MS 1-2 MG Q 4H PRN pain 4-10 NTG PRN for chest pain - she had no relief with this in the ED. Lipid panel in the AM She lists NSAID's as allergies so I am not going to order ASA. Charges/Coding Visit Charges OBSV E&M: 60685 Initial observation care L2
--- NOTE | 2022-04-24 18:11 | EKG12_ITS ---
Test Reason : CP ADMIN Blood Pressure : / mmHG Vent. Rate : 073 BPM Atrial Rate : 073 BPM P-R Int : 166 ms QRS Dur : 076 ms QT Int : 416 ms P-R-T Axes : 044 -31 053 degrees QTc Int : 458 ms Normal sinus rhythm Left axis deviation Septal infarct , age undetermined , cannot be excluded Inferior infarct , age undetermined , cannot be excluded Abnormal ECG Confirmed by PETERSON SANTANA, JAEL ([id number]), editorial cartoonist MILE MCMAHAN ([id number]) on 04/29/2022 8:37:13 AM Referred By: SMITA Confirmed By:JAEL WINKLER MD
[2022-04-24 18:21] LABS: Bedside Glucose 175 mg/dL (74-106)
--- NOTE | 2022-04-24 18:29 | ECHOCS_ITS ---
Reason For Study: Chest Pain Procedure This was a 2D Doppler, Color Flow transthoracic echocardiogram. The study was technically difficult. Contrast injection was performed. Exam performed in department. Left Ventricle Normal LV size. Mild concentric left ventricular hypertrophy. Left ventricular systolic function is normal. The estimated ejection fraction is 55 %. Diastolic function is indeterminate. No regional wall motion abnormalities noted. Right Ventricle Normal RV size. Normal systolic function. Atria Normal left atrium. Normal right atrium. No doppler evidence for ASD. Mitral Valve There is no mitral annular calcification. Normal mitral valve. Tricuspid Valve Normal tricuspid valve. Aortic Valve Trisinus/trileaflet aortic valve. Normal aortic valve. Pulmonic Valve The pulmonic valve is not well visualized. Great Vessels Normal sized aortic root. Pericardium/Pleural Trivial pericardial effusion. There are no echocardiographic indications of cardiac tamponade. Epicardial fat. Medication Diluted definity 3ml given slow IV push to enhance endocardial definition. MMode/2D Measurements & Calculations LVIDd: 3.3 cm IVSd: 1.4 cm Ao root diam: 3.0 cm LVIDs: 2.2 cm LVPWd: 1.4 cm RVDd: 2.7 cm FS: 34.3 % LAV(MOD-bp): 33.4 ml LVAd ap4: 23.3 cm2 SV(MOD-sp4): 32.4 ml LAV(MOD-bp) Indexed: 19.0 ml/m2 LVLd ap4: 6.6 cm LAV(MOD-sp2): 35.0 ml EDV(MOD-sp4): 64.6 ml LAV(MOD-sp4): 26.5 ml EDV(sp4-el): 69.6 ml LVAs ap4: 14.6 cm2 LVLs ap4: 5.6 cm ESV(MOD-sp4): 32.3 ml ESV(sp4-el): 32.6 ml EF(MOD-sp4): 50.1 % EF(sp4-el): 53.2 % SV(sp4-el): 37.0 ml LA A4 area: 12.0 cm2 LA dimension(2D): 3.8 cm RA A4 area: 4.8 cm2 Doppler Measurements & Calculations MV E max ignacio: 41.1 cm/sec Lat Peak E' Ignacio: 4.5 cm/sec Med Peak E' Ignacio: 2.9 cm/sec MV A max ignacio: 76.2 cm/sec E/E' lat: 9.1 E/E' med: 14.2 MV E/A: 0.54 Ao V2 max: 122.3 cm/sec LV V1 max: 81.2 cm/sec PA V2 max: 66.9 cm/sec Ao max P.0 mmHg LV V1 max P.6 mmHg Ao V2 mean: 89.9 cm/sec Ao mean P.5 mmHg Ao V2 VTI: 21.2 cm ECHO/Echo Complete W/ Contrast Interpretation Summary The study was technically difficult. Contrast injection was performed. Left ventricular systolic function is normal. The estimated ejection fraction is 55 %. Mild concentric left ventricular hypertrophy. Trivial pericardial effusion. There are no echocardiographic indications of cardiac tamponade. Epicardial fat. Diastolic function is indeterminate. Comment: The transthoracic echocardiograms performed on 02-21-2015 and the 2013 commented upon a trivial pericardial effusion with no echocardiographic indications of cardiac t amponade. Ordering Physician: Yanna Brsicoe Referring Physician: Chuy Lopez Performed By: Mariama Marshall, VELMA, RVT
[2022-04-24] MEDS: Insulin Lispro 100 UNIT/ML INSULN.PEN SC (18:35)
[2022-04-24] MEDS: Insulin Lispro 100 UNIT/ML INSULN.PEN 10 UNIT SC (18:35)
--- NOTE | 2022-04-24 20:20 | NURSING ---
Pt c/o midsternal CP 07/04, occured while lying in bed. Pt state radiating to her neck. Bp was 76/65, 76 HR and 97 on 3L. Pt requesting morphine for CP, educated that it wont be safe to give her Morphine d/t her low bp. Pt verbally agrees w/ the plan, gave her Flexeril and Tylenol instead, EKG ordered. Will notify
[2022-04-24] MEDS: Senna/Docusate Sodium 1 Tablet 2 TABLET PO (20:25)
[2022-04-24] MEDS: cycloBENZAPRine HCl 10 MG Tablet PO (20:26)
[2022-04-24] MEDS: QUEtiapine 100 MG Tablet PO (20:26)
[2022-04-24] MEDS: Acetaminophen 500 MG Tablet 1000 MG PO (20:26)
--- NOTE | 2022-04-24 20:29 | EKG12_ITS ---
Test Reason : CP ADMIT Blood Pressure : / mmHG Vent. Rate : 078 BPM Atrial Rate : 078 BPM P-R Int : 166 ms QRS Dur : 068 ms QT Int : 398 ms P-R-T Axes : 047 -15 047 degrees QTc Int : 453 ms Normal sinus rhythm Low voltage QRS Inferior infarct , age undetermined , cannot be excluded Anteroseptal CO, age undetermined, cannot be excluded Abnormal ECG Confirmed by PETERSON SANTANA, JAEL ([id number]), editorial director MILE MCMAHAN ([id number]) on 04/29/2022 8:34:40 AM Referred By: Confirmed By:JAEL WINKLER MD
--- NOTE | 2022-04-24 20:40 | NURSING ---
EKG obtained shows MD RAAD reviewed at this time. Placed EKG in pt's chart.
[2022-04-24 21:02] LABS: Troponin-I HS 57 pg/mL (3.0-54.0)
[2022-04-24 22:55] LABS: Bedside Glucose 165 mg/dL (74-106)
[2022-04-25 03:08] VITALS: PULSE 78
[2022-04-25 03:47] VITALS: BP 117/79; PULSE 80; RESP 18; TEMP 36.4; O2SAT 98
--- NOTE | 2022-04-25 05:55 | EKG12_ITS ---
Test Reason : AM EKG Blood Pressure : / mmHG Vent. Rate : 079 BPM Atrial Rate : 079 BPM P-R Int : 184 ms QRS Dur : 070 ms QT Int : 388 ms P-R-T Axes : 054 -32 049 degrees QTc Int : 444 ms Normal sinus rhythm Left axis deviation Low voltage QRS Inferior infarct , age undetermined , cannot be excluded Anteroseptal infarct, age undetermined, cannot be excluded Abnormal ECG Confirmed by PETERSON SANTANA, JAEL ([id number]), videotape editor MILE MCMAHAN ([id number]) on 04/29/2022 8:28:43 AM Referred By: Confirmed By:JAEL WINKLER MD
[2022-04-25 06:14] LABS: AST(SGOT) 124 U/L (15-37); Alanine Aminotransfer ALT/SGPT 157 U/L (13-56); Albumin, Serum 3.3 g/dL (3.2-5.0); Alkaline Phosphatase 123 U/L (45-117); Bilirubin, Direct 0.08 mg/dL (0.00-0.30); Cholesterol 254 mg/dL (200); Globulin 4.1 g/dL (2.2-4.2); High Density Lipoprotein 41 mg/dL; Protein, Total 7.4 g/dL (6.4-8.2); Triglycerides 250 mg/dL; Very Low Density Lipoprotein 50 mg/dL (5-40)
[2022-04-25 06:29] VITALS: BP 124/79; PULSE 78; RESP 16; TEMP 36.4; O2SAT 99
[2022-04-25] MEDS: 0.9% Saline Lock 10 ML Syringe IV (06:33)
[2022-04-25 07:11] LABS: Hemoglobin A1c 9.4 % (3.8-5.6)
[2022-04-25 07:22] VITALS: PULSE 70
[2022-04-25 07:26] LABS: Bedside Glucose 103 mg/dL (74-106)
--- NOTE | 2022-04-25 10:42 | PCM.DC ---
Discharge Instructions Diet Discharge Diet: Low fat / Low cholesterol and 2000 mg Sodium Diet Activity Discharge Activity: Return to Normal Activity and May Not Drive Dressing / Incision Call your doctor if you observe: Fever of 101 or Higher, Coldness, Increased Pain, Numbness or Tingling, Change in Color, Inability to urinate, Inability to have a bowel movement, Using more than 1 pad per hour, Shortness of breath, Dizziness, Fainting spells, Swelling in the ankles, Chest pain, Increased palpitations (irregular heartbeat), Calf discomfort and Uncontrolled pain Follow Up Care Test Results: Test results from this visit will be discussed in further detail at your follow-up appointment, if applicable. Discharge Plan Admission Admit Date/Time: 04/24/22 17:01 Primary Reason for Your Visit: Atypical chest pain. ACS ruled out Attending Provider: Ramez Prieto Primary Care Provider: Jarred Lopez Consulting Providers: Yanna Briscoe Discharge Orders/Prescriptions Prescriptions: Continued rizatriptan 10 tablet 10 mg PO PRN PRN (Reason: Migraine Symptoms) Label Comments: quetiapine [Seroquel] 100 mg Tablet 100 mg PO QHS (DME) pen needle,diabetic, disp unit 29 gauge x 1/2 needle See Rx Instructions .ROUTE .MEDSUPPLY Qty: 100 0RF Rx Instructions: As directed alprazolam 0.5 mg tablet 0.5 mg PO DAILY insulin glargine-yfgn 100 unit/mL (3 mL) Insulin Pen 35 unit subcut DAILY Qty: 0 0RF insulin lispro [Humalog KwikPen Insulin] 100 unit/mL Insulin Pen 10 unit subcut TIDAC Qty: 0 0RF gabapentin 300 mg Capsule 300 mg PO TIDCM Qty: 60 0RF acetaminophen 500 mg Tablet 1,000 mg PO TID PRN (Reason: pain) Qty: 0 0RF polyethylene glycol 3350 17 gram Powder In Packet 17 g PO DAILY PRN PRN (Reason: constipation) Qty: 0 0RF sennosides-docusate sodium [Stool Softener-Stimulant Laxat] 8.6-50 mg Tablet 2 tab PO BID Qty: 0 0RF baclofen 10 mg Tablet 10 mg PO Q6H PRN (Reason: Pain) lidocaine 4 % Adhesive Patch,Medicated 2 patch TOPICAL DAILY PRN (Reason: Back Pain) Label Comments: PER SENIOR CARE MAR PT GETS 2 PATCHES APPLIED TO BACK IN THE AM AND REMOVED AFTER 12 HOURS IN THE PM. alum-mag hydroxide-simeth [Mylanta Maximum Strength] 400-400-40 mg/5 mL Suspension 15 ml PO Q4H PRN (Reason: Stomach Upset) insulin lispro [Humalog KwikPen Insulin] 100 unit/mL insulin pen See Protocol subcut ACHS Protocol: 6. Sliding Scale Insulin Custom Condition: mg/dl range Dose/Route: Number of Units Condition: 150-209 Dose/Route: 3 Condition: 210-259 Dose/Route: 6 Condition: 260-324 Dose/Route: 9 Condition: 325-374 Dose/Route: 12 Condition: 375-409 Dose/Route: 14 Condition: 410-449 Dose/Route: 16 Condition: >449 Instruction: CALL MD Protocol Text: Custom Sliding Scale Referrals / Follow Up: Jarred Lopez MD [Primary Care Provider] - Disposition Disposition (needs filled in before D/C Order can be placed): NonSkilled NH/[facility] Care
--- NOTE | 2022-04-25 11:44 | STRESSREP ---
Stress Test Report Date: 04-25-2022 Procedure: Pharmacologic stress nuclear imaging study Indications: Chest pain; abnormal high-sensitivity troponin I level Consent: Per the patient Procedure: The patient underwent pharmacologic (Regadenoson 0.4mg ) evaluation with a peak heart rate of 101 beats per minute (62%predicted maximal heart rate) and a peak blood pressure of 120/70 mmHg. The baseline ECG demonstrated normal sinus rhythm; low voltage QRS; poor R wave progression; anterior CA of indeterminate age cannot be excluded. The peak pharmacologic ECG demonstrated no obvious ECG changes. There were no cardiac dysrhythmias pretest, during pharmacologic infusion, or recovery. The patient noted chest discomfort pretest, during infusion, and recovery was gradual improvement during recovery. The examination was discontinued secondary to completion of protocol. Impression: 1. Pharmacologic (Regadenoson) evaluation 2. Peak pharmacologic ECG with no obvious ECG changes. 3. There were no cardiac dysrhythmias pretest, during pharmacologic infusion, or recovery. 4. Nuclear images pending Myocardial perfusion imaging study: Technique: The patient was injected with 11.8 millicuries of technetium 99m Cardiolite and subsequently rest SPECT Cardiolite nuclear imaging was obtained in the horizontal long, vertical long, and short axis views. The patient underwent pharmacologic (Regadenoson) evaluation with a peak heart rate of 101 beats per minute (62% percent predicted maximal heart rate) and a peak blood pressure of 120/70 mmHg. The patient was injected with 35.1 millicuries of technetium 99m Cardiolite and subsequently stress SPECT Cardiolite nuclear imaging was obtained in the horizontal long, vertical long, and short axis views. A gated Cardiolite study at peak stress was obtained. Interpretation: Rest and stress SPECT Cardiolite nuclear imaging status post realignment, normalization, and attenuation correction demonstrate relative uniform tracer uptake and myocardial perfusion appearing within normal limits. There is end systolic thickening and brightening. The gated Cardiolite study demonstrates myocardial thickening and inward wall motion. The reported LVEF is 52%. Impression: 1. Relative uniform tracer uptake and myocardial perfusion appearing within normal limits. 2. The gated Cardiolite study reports an LVEF of 52%. This note was generated with [employer] software. It may contain incorrect words, spelling, and punctuation that were not noted in checking the note before signing.
[2022-04-25 11:53] VITALS: BP 105/65; PULSE 74; RESP 16; TEMP 36.6; O2SAT 94
[2022-04-25] MEDS: ALPRAZolam 0.5 MG Tablet PO (11:59)
[2022-04-25 12:06] LABS: Bedside Glucose 135 mg/dL (74-106)
[2022-04-25] MEDS: Gabapentin 300 MG Capsule PO ×2 (13:07→16:11)
--- NOTE | 2022-04-25 13:07 | PCM.DC.SUM ---
Providers Date of Admission: 04/24/22 Date of Discharge: 04/25/22 Primary Care Physician: Dr. Jarred Lopez MD Reason For Visit: CP, DM, HTN Diagnosis Discharge Diagnosis (1) Chest pain: Status: Acute Code(s): R07.9 - Chest pain, unspecified (2) Elevated troponin: Status: Acute Code(s): R77.8 - Other specified abnormalities of plasma proteins (3) History of diabetes mellitus: Status: Acute Code(s): Z86.39 - Personal history of other endocrine, nutritional and metabolic disease (4) Hyperlipidemia: Status: Acute Code(s): E78.5 - Hyperlipidemia, unspecified (5) Obesity (BMI 35.0-39.9 without comorbidity): Status: Acute Code(s): E66.9 - Obesity, unspecified (6) Chronic renal failure, stage 3a: Status: Acute Code(s): N18.31 - Chronic kidney disease, stage 3a (7) Normochromic normocytic anemia: Status: Acute Code(s): D64.9 - Anemia, unspecified (8) Opiate abuse, continuous: Status: Acute Code(s): F11.10 - Opioid abuse, uncomplicated (9) Depressive disorder: Status: Chronic Code(s): F32.9 - Major depressive disorder, single episode, unspecified (10) Chronic back pain: Status: Chronic Code(s): M54.9 - Dorsalgia, unspecified; G89.29 - Other chronic pain Medications at Discharge Home Medications rizatriptan 10 mg tablet 10 mg PO PRN PRN Migraine Symptoms 12/27/17 quetiapine 100 mg tablet (Seroquel) 100 mg PO QHS sleep 06/20/21 pen needle,diabetic, disp unit 29 gauge x 1/2, remover and disposal unit #100 ea 06/23/21 alprazolam 0.5 mg tablet 0.5 mg PO DAILY mood 03/20/22 gabapentin 300 mg capsule 300 mg PO TIDCM #60 caps 03/24/22 insulin glargine-yfgn 100 unit/mL (3 mL) subcutaneous pen 35 unit (0.35 mL) subcut DAILY #0 mL 03/24/22 insulin lispro 100 unit/mL subcutaneous pen (Humalog KwikPen (U-100) Insulin) 10 unit (0.1 mL) subcut TIDAC #0 mL 03/24/22 acetaminophen 500 mg tablet 1,000 mg PO TID PRN pain #0 tabs 03/27/22 polyethylene glycol 3350 17 gram oral powder packet 17 g PO DAILY PRN PRN constipation #0 ea 03/27/22 sennosides 8.6 mg-docusate sodium 50 mg tablet (Stool Softener-Stimulant Laxative) 2 tab PO BID #0 tabs 03/27/22 aluminum-mag hydroxide-simethicone 400 mg-400 mg-40 mg/5 mL oral susp (Mylanta Maximum Strength) 15 ml PO Q4H PRN Stomach Upset 04/24/22 baclofen 10 mg tablet 10 mg PO Q6H PRN Pain 04/24/22 insulin lispro 100 unit/mL subcutaneous pen (Humalog KwikPen (U-100) Insulin) See Protocol subcut ACHS 04/24/22 lidocaine 4 % topical patch 2 patch topical DAILY PRN Back Pain 04/24/22 Hospital Course Summary of Care Provided Hospital Course: Patient is 48-year-old female with multiple comorbidities admitted with substernal chest pain while lying in the bed, exacerbated with deep breathing. No prior history of [place] or cardiac stents. Twelve-lead EKG shows poor R wave progression with normal sinus rhythm. No significant ST-T changes. Patient has history of CKD stage III with creatinine 1.08, estimated creatinine 55 mill per minute. Potassium within normal limit. D-dimer normal. Patient was further admitted in PCU 1. Atypical chest pain: Initial troponin was mildly elevated 57 subsequent decreased but still elevated.roponins are elevated but plateaued in 50s. Patient had myocardial nuclear stress test. Patient had pharmacological stress test and reported within normal limits. Patient had 2D echo EF 55%, concentric LVH. No echo indication of cardiac tamponade. Acute coronary syndrome ruled out. I think patient has musculoskeletal chest pain. 2. Diabetes mellitus type 2: Patient is on short-acting and Lantus insulin along with sliding scale insulin. Home dose insulin continued.A1c 9.4. 3. Hypertension: Blood pressure in acceptable limit. Antihypertensive medications continued 4. Dyslipidemia: Patient fasting profile shows LDL 163, total cholesterol 254, triglyceride 250. Started on pravastatin 40 mg daily at bedtime. 5. 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 Total bili normal. Patient might have probably nonalcoholic steatohepatitis. Chronic normocytic normochromic anemia: Hemoglobin is stable. Hemoglobin is stable between 11 to 12 g%. Chronic lumbar spine intervertebral disc disorder with radiculopathy, previous opioid dependence, depression, PTSD, kidney stones and migraine disease: Patient has a lot of psychological disease and functional pain disease. Home medication reconciliation done. Discharge medication reconciliation done. Discharge follow-up instructions completed. Discharge process discussed with the patient and all questions were answered to patient's satisfaction. Total time spent, exact 35 minutes on discharge meds reconciliation, examination, coordination of care with nurses and ancillary staff, review of imaging and blood test and discussion with the patient on follow-up instructions. Physical Exam Narrative Seen and examined. Complaint of chest pain mainly over left side, upper chest clavicular pain and left of neck. General: Alert, Oriented x3, Cooperative HEENT: Atraumatic, PERRLA, EOMI, Normocephalic Oral: No Gingival or Mucosal Lesions/ Ulcerations Neck: Supple, No JVD, Negative Carotid Bruits Lungs: Air entry diminished in bilateral lung bases. No crepitation/rhonchi Cardiovascular: Regular rate, Regular Rhythm, Normal S1, Normal S2, No murmurs Abdomen: Bowel Sounds Present, Soft, Non Tender, Non-Distended : No renal angle tenderness. No suprapubic tenderness. Extremities: No edema, Capillary Refill Less than 3 Seconds Skin: No rashes, No breakdown Musculoskeletal: No Tenderness to Palpation of Joints or Extremities, muscle strength 4+/5 at major joints of lower extremities. Neurological: Cranial nerves II-XII grossly intact, DTR 2+/4 and Symmetrical, no focal deficit Psych/Mental Status: Mild depression, chronic, flat affect Weight / BMI Weight Weight: 181 lb 8 oz Body Mass Index (BMI) 35.4 ABG / Lab / Microbiology Data Result Diagrams: 04/24/22 13:58 04/24/22 13:58 Laboratory: Laboratory Results - last 24 hr 04/24/22 13:58: WBC 5.4, RBC 3.73 L, Hgb 11.4 L, Hct 34.1 L, MCV 91.4, MCH 30.6, MCHC 33.4, RDW Std Deviation 46.6 H, RDW Coeff of Anisa 14.0, Plt Count 254, MPV 9.5, Immature Gran % (Auto) 1.100 H, Neut % (Auto) 49.1, Lymph % (Auto) 42.6 H, [place] % (Auto) 3.9, Eos % (Auto) 2.2, Baso % (Auto) 1.1 H, Absolute Neuts (auto) 2.6, Absolute Lymphs (auto) 2.29, Nucleated RBC % 0 04/24/22 13:58: Sodium 138, Potassium 3.9, Chloride 101, Carbon Dioxide 28.0, Anion Gap 9, BUN 17, Creatinine 1.08 H, Estim Creat Clear Calc 40.78, Est GFR (MDRD) Af Amer 67, Est GFR (MDRD) Non-Af 55 L, BUN/Creatinine Ratio 15.7, Glucose 180 H, Calcium 9.3, Troponin I High Sens 57 H 04/24/22 13:58: D-Dimer Quant (PE/DVT) 0.32 04/24/22 16:50: Troponin I High Sens 56 H 04/24/22 18:13: POC Glucose 175 H 04/24/22 20:17: Troponin I High Sens 57 H 04/24/22 22:42: POC Glucose 165 H 04/25/22 05:33: Total Bilirubin 0.20, Direct Bilirubin 0.08, AST 124 H, ALT 157 H, Alkaline Phosphatase 123 H, Total Protein 7.4, Albumin 3.3, Globulin 4.1, Triglycerides 250 H, Cholesterol 254 H, LDL Cholesterol 163 H, VLDL Cholesterol 50 H, HDL Cholesterol 41 04/25/22 05:33: Hemoglobin A1c 9.4 H 04/25/22 06:30: POC Glucose 103 04/25/22 11:46: POC Glucose 135 H Radiography Diagnostic Testing: Radiology Impression Chest X-Ray 04/24/22 14:38 IMPRESSION: Elevation of the right hemidiaphragm with increased markings and areas of confluence at the right lung base suggestive of atelectasis and/or early infiltrate. Electronically Signed: Khoi Al MD at 15:14 EDT , D/C Instructions Discharge Diet: Low fat / Low cholesterol and 2000 mg Sodium Diet Call your doctor if you observe: Fever of 101 or Higher, Coldness, Increased Pain, Numbness or Tingling, Change in Color, Inability to urinate, Inability to have a bowel movement, Using more than 1 pad per hour, Shortness of breath, Dizziness, Fainting spells, Swelling in the ankles, Chest pain, Increased palpitations (irregular heartbeat), Calf discomfort and Uncontrolled pain Meaningful Use Info Meaningful Use Diagnoses (Choose all that apply): None applicable Discharge Plan Admission Admit Date/Time: 04/24/22 17:01 Primary Reason for Your Visit: Atypical chest pain. ACS ruled out Attending Provider: Ramez Prieto Primary Care Provider: Jarred Lopez Consulting Providers: Yanna Briscoe Discharge Orders/Prescriptions Prescriptions: Continued rizatriptan 10 tablet 10 mg PO PRN PRN (Reason: Migraine Symptoms) Label Comments: quetiapine [Seroquel] 100 mg Tablet 100 mg PO QHS (DME) pen needle,diabetic, disp unit 29 gauge x 1/2 needle See Rx Instructions .ROUTE .MEDSUPPLY Qty: 100 0RF Rx Instructions: As directed alprazolam 0.5 mg tablet 0.5 mg PO DAILY insulin glargine-yfgn 100 unit/mL (3 mL) Insulin Pen 35 unit subcut DAILY Qty: 0 0RF insulin lispro [Humalog KwikPen Insulin] 100 unit/mL Insulin Pen 10 unit subcut TIDAC Qty: 0 0RF gabapentin 300 mg Capsule 300 mg PO TIDCM Qty: 60 0RF acetaminophen 500 mg Tablet 1,000 mg PO TID PRN (Reason: pain) Qty: 0 0RF polyethylene glycol 3350 17 gram Powder In Packet 17 g PO DAILY PRN PRN (Reason: constipation) Qty: 0 0RF sennosides-docusate sodium [Stool Softener-Stimulant Laxat] 8.6-50 mg Tablet 2 tab PO BID Qty: 0 0RF baclofen 10 mg Tablet 10 mg PO Q6H PRN (Reason: Pain) lidocaine 4 % Adhesive Patch,Medicated 2 patch TOPICAL DAILY PRN (Reason: Back Pain) Label Comments: PER HALFWAY MAR PT GETS 2 PATCHES APPLIED TO BACK IN THE AM AND REMOVED AFTER 12 HOURS IN THE PM. alum-mag hydroxide-simeth [Mylanta Maximum Strength] 400-400-40 mg/5 mL Suspension 15 ml PO Q4H PRN (Reason: Stomach Upset) insulin lispro [Humalog KwikPen Insulin] 100 unit/mL insulin pen See Protocol subcut ACHS Protocol: 6. Sliding Scale Insulin Custom Condition: mg/dl range Dose/Route: Number of Units Condition: 150-209 Dose/Route: 3 Condition: 210-259 Dose/Route: 6 Condition: 260-324 Dose/Route: 9 Condition: 325-374 Dose/Route: 12 Condition: 375-409 Dose/Route: 14 Condition: 410-449 Dose/Route: 16 Condition: >449 Instruction: CALL MD Protocol Text: Custom Sliding Scale Referrals / Follow Up: Jarred Lopez MD [Primary Care Provider] - Disposition Disposition (needs filled in before D/C Order can be placed): NonSkilled NH/Intermed Care Charges/Coding Multi Select Codes Visit Charges Observation E&M Codin Observation care discharge
--- NOTE | 2022-04-25 13:35 | CASEMGMT ---
Social Work Note SW updated that pt is from [facility] and will be returning. SW in to speak with pt. Pt confirms she is from [facility] and plan is to return. Pt states she will need transportation arranged. SW updated calculator operator. Plan: Return to [facility]. Rocio Fuentes SILO ERECTOR, JACQUARD CARD LACER
[2022-04-25 15:04] VITALS: PULSE 72
[2022-04-25] MEDS: Insulin Lispro 100 UNIT/ML INSULN.PEN SC (16:10)
[2022-04-27 07:01] LABS: Bedside Glucose 172 mg/dL (74-106)
== END 2022-04-25 13:28 | disposition intermediate care facility (04) ==
LOC: ED 15:22 → PCU 17:24
PROVIDERS: Admitting Provider Internal Medicine; Emergency Provider Emergency Medicine; PCP Family Medicine; Visit Provider Internal Medicine
DX: R07.89 Other chest pain (principal); F11.10 Opioid abuse, uncomplicated; E11.22 Type 2 diabetes mellitus with diabetic chronic kidney disease; Z79.4 Long term (current) use of insulin; N18.31 Chronic kidney disease, stage 3a; R09.02 Hypoxemia; F32.9 Major depressive disorder, single episode, unspecified; M51.16 Intervertebral disc disorders with radiculopathy, lumbar region; F43.10 Post-traumatic stress disorder, unspecified; E66.9 Obesity, unspecified; G43.909 Migraine, unspecified, not intractable, without status migrainosus; E78.5 Hyperlipidemia, unspecified; G89.29 Other chronic pain; I12.9 Hypertensive chronic kidney disease with stage 1 through stage 4 chronic kidney disease, or unspecified chronic kidney disease; D64.9 Anemia, unspecified; Z79.899 Other long term (current) drug therapy; Z68.35 Body mass index [BMI] 35.0-35.9, adult; Z87.891 Personal history of nicotine dependence
CPT/HCPCS: 36415; 71045; 78452; 80048; 80061; 80076; 82962; 83036; 84484; 85025; 85379; 93005; 93017; 93306; 96361; 96374; 96375; 99218; 99285; A9500; J7040; Q9957; A4216; C8929; G0378; J2405; J2785

== ENCOUNTER → 2022-04-28 | Outpatient (REF) | payer SELFPAY ==
[2022-04-28 09:10] LABS: Hematocrit 33.2 % (37-47); Hemoglobin 11.1 g/dL (12.0-15.0); Mean Corp Hgb Conc 33.4 g/dL (32-36); Mean Corpuscular Hgb 30.3 pg (27.0-32.0); Mean Corpuscular Volume 90.7 fL (81-99); Mean Platelet Vol. 9.5 fl (6.2-12.0); Platelet Count 262 K/mm3 (150-450); RBC Distribution Width CV 14.2 % (11.6-14.6); RBC Distribution Width SD 46.7 fl (35.1-43.9); Red Blood Count 3.66 M/mm3 (4.2-5.4); White Blood Count 6.1 K/mm3 (4.4-11.0)
[2022-04-28 09:21] LABS: Anion Gap 8 (5-15); BUN 22 mg/dL (7-18); BUN/Creat Ratio 21.4 RATIO (10-20); Calcium,Total 9.4 mg/dL (8.5-10.1); Chloride 92 mmol/L (98-107); Creatinine, Serum 1.03 mg/dL (0.55-1.02); EST Glomerular Filtration Rate 58 mL/min (>60); Est Glom Filt Rate - Afr Amer 71 mL/min (>60); Glucose 66 mg/dL (74-106); Potassium 4.3 mmol/L (3.5-5.1); Sodium Level 131 mmol/L (136-145)
== END | disposition home or self-care (01) ==
LOC: OLS.WHLTCC 04:00
PROVIDERS: PCP Family Medicine; Referring Provider Family Medicine; Visit Provider Family Medicine
DX: M51.16 Intervertebral disc disorders with radiculopathy, lumbar region (principal); E11.42 Type 2 diabetes mellitus with diabetic polyneuropathy; N18.31 Chronic kidney disease, stage 3a; M62.81 Muscle weakness (generalized); R26.2 Difficulty in walking, not elsewhere classified
CPT/HCPCS: 36415; 80048; 85027

== ENCOUNTER 2022-05-03 19:53 | Emergency (ER) | payer MEDICARE, MEDICAID, SELFPAY ==
[2022-05-03 19:54] VITALS: BP 128/85; PULSE 94; RESP 10; TEMP 36.6; O2SAT 92; BMI 37.8
--- NOTE | 2022-05-03 20:00 | EKG12_ITS ---
Test Reason : cp Blood Pressure : / mmHG Vent. Rate : 091 BPM Atrial Rate : 091 BPM P-R Int : 168 ms QRS Dur : 060 ms QT Int : 364 ms P-R-T Axes : 034 -21 040 degrees QTc Int : 447 ms Normal sinus rhythm Low voltage QRS Inferior infarct , age undetermined, cannot be excluded Possible Anterolateral infarct , age undetermined Abnormal ECG Confirmed by PETERSON SANTANA, JAEL ([id number]), supervising editor news reel MILE MCMAHAN ([id number]) on 05/06/2022 11:01:17 AM Referred By: Bertha Confirmed By:JAEL WINKLER MD
--- NOTE | 2022-05-03 20:10 | EKG12_ITS ---
Test Reason : repeat cp Blood Pressure : / mmHG Vent. Rate : 076 BPM Atrial Rate : 076 BPM P-R Int : 180 ms QRS Dur : 070 ms QT Int : 364 ms P-R-T Axes : 033 -25 011 degrees QTc Int : 409 ms Normal sinus rhythm Low voltage QRS Septal infarct , age undetermined Possible Lateral infarct , age undetermined , cannot be excluded Inferior infarct , age undetermined Abnormal ECG Confirmed by PETERSON SANTANA, JAEL ([id number]), photography editor MILE MCMAHAN ([id number]) on 05/06/2022 10:57:19 AM Referred By: Confirmed By:JAEL WINKLER MD
--- NOTE | 2022-05-03 20:11 | EDS_ITS ---
HPI History of Present Illness Chief Complaint: Chest Pain Informant: patient Narrative Narrative: Patient states she has been having episodes of left-sided chest pain. They will radiate to her shoulder sometimes. Sometimes moving makes them worse. Breathing does not make them worse. She has had mild dyspnea but she has some chronic mild dyspnea and she is not sure if that is new or different. Possible mild nausea but again she has this from her meds. No vomiting. No diaphoresis. Not exertional. She states nothing specifically brings it on. It usually lasts for about 5 minutes then goes away. She has had several episodes today. She has had had these in the past. She was admitted about a week ago. I looked over those reports. She had a nuclear stress test that showed no obvious ischemia. Echo was also done. Blood work was done. She has not had heart catheterization. No travel surgery immobilization/casting family history of PE and DVT. There is some family history of heart disease but not sure how old. She thinks it is older in the 60s. She is a former smoker quit about a year ago. Positive diabetes. No high blood pressure or high cholesterol. [facility] Medical History Carpal tunnel syndrome Chronic back pain Chronic renal failure, stage 3a Depression Depressive disorder Diabetes Elevated troponin Fatigue Former smoker History of diabetes mellitus HTN (hypertension) Hyperlipidemia Intervertebral disc disorder with radiculopathy of lumbar region Intervertebral disc disorder with radiculopathy of lumbar region Kidney disease Kidney stones Migraines Normochromic normocytic anemia Obesity (BMI 35.0-39.9 without comorbidity) Opiate abuse, continuous Pure hypercholesterolemia Stomach ulcer Thyroid disease Type II diabetes mellitus, uncontrolled Home Medications rizatriptan 10 mg tablet 10 mg PO PRN PRN Migraine Symptoms 12/27/17 [History Last Taken Unknown] quetiapine 100 mg tablet (Seroquel) 100 mg PO QHS sleep 06/20/21 [History Last Taken 04/23/22] pen needle,diabetic, disp unit 29 gauge x 1/2, remover and disposal unit #100 ea 06/23/21 [Rx Last Taken Unknown] alprazolam 0.5 mg tablet 0.5 mg PO DAILY mood 03/20/22 [History Last Taken 04/24/22] gabapentin 300 mg capsule 300 mg PO TIDCM #60 caps 03/24/22 [Rx Last Taken 11/15] insulin glargine-yfgn 100 unit/mL (3 mL) subcutaneous pen 35 unit (0.35 mL) subcut DAILY #0 mL 03/24/22 [Rx Last Taken 04/24/22] insulin lispro 100 unit/mL subcutaneous pen (Humalog KwikPen (U-100) Insulin) 10 unit (0.1 mL) subcut TIDAC #0 mL 03/24/22 [Rx Last Taken 04/24/22] acetaminophen 500 mg tablet 1,000 mg PO TID PRN pain #0 tabs 03/27/22 [Rx Last Taken 04/23/22 16:40] polyethylene glycol 3350 17 gram oral powder packet 17 g PO DAILY PRN PRN constipation #0 ea 03/27/22 [Rx Last Taken Unknown] sennosides 8.6 mg-docusate sodium 50 mg tablet (Stool Softener-Stimulant Laxative) 2 tab PO BID #0 tabs 03/27/22 [Rx Last Taken Unknown] aluminum-mag hydroxide-simethicone 400 mg-400 mg-40 mg/5 mL oral susp (Mylanta Maximum Strength) 15 ml PO Q4H PRN Stomach Upset 04/24/22 [History Last Taken 04/24/22] baclofen 10 mg tablet 10 mg PO Q6H PRN Pain 04/24/22 [History Last Taken 04/24/22 05:18] insulin lispro 100 unit/mL subcutaneous pen (Humalog KwikPen (U-100) Insulin) See Protocol subcut ACHS 04/24/22 [History Last Taken 04/24/22] lidocaine 4 % topical patch 2 patch topical DAILY PRN Back Pain 04/24/22 [History Last Taken 04/24/22] Allergy/AdvReac Type Severity Reaction Status Date / Time celecoxib [From Celebrex] Allergy Itching Verified 05/03/22 19:58 ciprofloxacin [From Cipro] Allergy Swelling Verified 05/03/22 19:58 ciprofloxacin HCl Allergy Swelling Verified 05/03/22 19:58 [From Cipro] codeine Allergy Hives Verified 05/03/22 19:58 ibuprofen Allergy Hives Verified 05/03/22 19:58 naproxen Allergy Hives Verified 05/03/22 19:58 Penicillins Allergy Hives Verified 05/03/22 19:58 tramadol HCl [From Ultram] Allergy Hives Verified 05/03/22 19:58 ketorolac [From Toradol] AdvReac Swelling Verified 05/03/22 19:58 Family History Other CVA (cerebral vascular accident) Cancer Diabetes Myocardial infarction Surgical History H/O: hysterectomy Hx of section S/P trigger finger release Social History household members: other details: currently living in a NH for therapy for chronic back pain housing: half-way Smoking Status: Former smoker Tobacco: How many years used: 46 how long ago did patient quit smoking: She quit smoking in August or September of 2021. She started smoking at 14 alcohol intake: never substance use type: other details: has a hx of chronic opioid use ROS ROS ED Constitutional Constitutional ED: Denies chills or fever(s) Eyes Eyes: Denies change in vision ENT ENT ED: Denies rhinorrhea or sore throat Cardiovascular Cardiovascular: Reports chest pain; Denies palpitations Respiratory/Chest Respiratory/Chest: Reports dyspnea; Denies cough Gastrointestinal Gastrointestinal: Reports nausea; Denies abdominal pain or vomiting Genitourinary Genitourinary ED: Denies hematuria Musculoskeletal Musculoskeletal: Denies back pain or neck pain Integumentary Denies rash Neurologic Neurologic: Denies headache(s), paresthesias or weakness Psychiatric Psychiatric: Denies anxiety Endocrine Endocrinology: Denies polydipsia or polyuria Hematologic/Lymphatic Hematologic/Lymphatic: Denies easy bleeding or easy bruising Allergic/Immunologic Allergic/Immunologic ED: Denies urticaria EXAM Physical Exam Const Vital Signs: 05/03/22 19:54 05/03/22 19:58 05/03/22 20:47 Temperature 97.8 F Temperature Source Oral Pulse Rate 94 Respiratory Rate 10 L Respiratory Effort Normal Respiratory Pattern Normal Blood Pressure 128/85 H Blood Pressure Mean 99 Pulse Ox 92 96 Oxygen Delivery Method Room Air Room Air Positive well nourished General Appearance ED: NAD HEENT Reports moist mucous membranes Eyes General Eye ED: Negative for pale conjunctiva or scleral icterus Neck supple and no JVD Chest Wall inspection of chest normal Chest Narrative: Mild chest wall tenderness but no skin changes. No rash. No lesions. No crepitance or subcu air. Resp normal respiratory effort Resp Narrative: Lungs are clear. There is no pain with a deep breath Cardio regular rate and regular rhythm GI normal to inspection, nondistended, normoactive bowel sounds and soft to palpation Back/Spine no CVA tenderness Extremity normal to inspection Extremity Narrative: No edema or cords. They are equal. No asymmetry. Neuro Sensorium / Orientation: awake and alert Psych mental status grossly normal Skin no rashes or lesions noted MDM MDM MDM Narrative Medical decision making narrative: Chest x-ray showed mild atelectasis on the right. Her pain is nonpleuritic. It comes and goes. Her CBC showed mild anemia. This is similar to recent. Creatinine was minimally elevated at 1.19. Glucose was 130. Troponin was just a little bit elevated at 58. But when he looked at her ones from last week when she was in the hospital they were 56 and 57. This is no significant change. EKG shows nonspecific changes but no significant interval change. I discussed the case with cardiology, Dr. James. Since she just had an evaluation 1 week ago, her EKG is not showing marked changes, her troponin is in showing marked changes, I felt she can go home. We will recheck troponin to make sure its not having a significant rise. But as long as it does not rise significantly we will be able to get her home with follow-up and outpatient cardiology. He recommended contacting the office for follow-up. We are pending a repeat troponin at this time. Patient repeat troponin done. She states her chest was hurting. But it is also tender to palpation. She also complains of pains on her back and other areas. She states she has bad arthritis. She states that they usually give me morphine. She has allergies to multiple meds but can tolerate this. Patient is turned over the oncoming physician pending repeat troponin. Lab Data Attestation: I reviewed the patient's lab results. Labs: Laboratory Results - last 24 hr 05/03/22 05/03/22 20:15 20:15 WBC 5.9 RBC 3.46 L Hgb 10.6 L Hct 31.6 L MCV 91.3 MCH 30.6 MCHC 33.5 RDW Std Deviation 46.8 H RDW Coeff of Anisa 14.4 Plt Count 267 MPV 9.4 Immature Gran % (Auto) 0.800 Neut % (Auto) 45.1 L Lymph % (Auto) 45.1 H [place] % (Auto) 6.3 Eos % (Auto) 1.5 Baso % (Auto) 1.2 H Absolute Neuts (auto) 2.7 Absolute Lymphs (auto) 2.67 Nucleated RBC % 0.3 Sodium 136 Potassium 4.0 Chloride 100 Carbon Dioxide 29.0 Anion Gap 7 BUN 23 H Creatinine 1.19 H Estim Creat Clear Calc 37.01 Est GFR (MDRD) Af Amer 60 Est GFR (MDRD) Non-Af 49 L BUN/Creatinine Ratio 19.3 Glucose 130 H Calcium 9.1 Troponin I High Sens 58 H Radiography Diagnostic Testing: Clinical Impression(s) from Imaging Studies Chest X-Ray 05/03/22 20:15 IMPRESSION: Small right pleural effusion. Stable right lower lobe atelectasis or scarring. Electronically Signed: Conner Caldera MD at 20:35 EDT Reading Location ID and State: [facility] / [place] , Service support , Discharge Plan Triage Chief Complaint: Chest Pain ED Provider: Scott Booker Dx/Rx/DC Orders Clinical Impression: Chest pain Instructions: ED Pain, Acute, Uncertain Cause Prescriptions: No Action rizatriptan 10 tablet 10 mg PO PRN PRN (Reason: Migraine Symptoms) Label Comments: quetiapine [Seroquel] 100 mg Tablet 100 mg PO QHS (DME) pen needle,diabetic, disp unit 29 gauge x 1/2 needle See Rx Instructions .ROUTE .MEDSUPPLY Qty: 100 0RF Rx Instructions: As directed alprazolam 0.5 mg tablet 0.5 mg PO DAILY insulin glargine-yfgn 100 unit/mL (3 mL) Insulin Pen 35 unit subcut DAILY Qty: 0 0RF insulin lispro [Humalog KwikPen Insulin] 100 unit/mL Insulin Pen 10 unit subcut TIDAC Qty: 0 0RF gabapentin 300 mg Capsule 300 mg PO TIDCM Qty: 60 0RF acetaminophen 500 mg Tablet 1,000 mg PO TID PRN (Reason: pain) Qty: 0 0RF polyethylene glycol 3350 17 gram Powder In Packet 17 g PO DAILY PRN PRN (Reason: constipation) Qty: 0 0RF sennosides-docusate sodium [Stool Softener-Stimulant Laxat] 8.6-50 mg Tablet 2 tab PO BID Qty: 0 0RF baclofen 10 mg Tablet 10 mg PO Q6H PRN (Reason: Pain) lidocaine 4 % Adhesive Patch,Medicated 2 patch TOPICAL DAILY PRN (Reason: Back Pain) Label Comments: PER CUSTODIAL MAR PT GETS 2 PATCHES APPLIED TO BACK IN THE AM AND REMOVED AFTER 12 HOURS IN THE PM. alum-mag hydroxide-simeth [Mylanta Maximum Strength] 400-400-40 mg/5 mL Suspension 15 ml PO Q4H PRN (Reason: Stomach Upset) insulin lispro [Humalog KwikPen Insulin] 100 unit/mL insulin pen See Protocol subcut ACHS Protocol: 6. Sliding Scale Insulin Custom Condition: mg/dl range Dose/Route: Number of Units Condition: 150-209 Dose/Route: 3 Condition: 210-259 Dose/Route: 6 Condition: 260-324 Dose/Route: 9 Condition: 325-374 Dose/Route: 12 Condition: 375-409 Dose/Route: 14 Condition: 410-449 Dose/Route: 16 Condition: >449 Instruction: CALL MD Protocol Text: Custom Sliding Scale Primary Care Provider: Ganesh Garcia Referrals: Nika James MD [STAFF PHYSICIAN] - As soon as possible Ganesh Garcia MD [Primary Care Provider] - 3-5 Days Disposition Disposition: Home, Self Care
--- NOTE | 2022-05-03 20:15 | RAD_ITS ---
STUDY: X-RAY CHEST REASON FOR EXAM: Female, 56 years old. chest pain TECHNIQUE: XR Chest 1 View COMPARISON: 04.24.22 FINDINGS: Small right pleural effusion. Stable right lower lobe atelectasis or scarring. Normal size heart. Normal mediastinum and adryan. Normal visualized pulmonary arteries. There is atherosclerotic calcification of the aortic arch with tortuosity. There are diffuse degenerative changes of the visualized thoracic spine. There is degenerative osteoarthritis of the bilateral shoulders. There is no demonstrated abnormality of the visualized soft tissue structures of the upper abdomen. RAD/Chest 1 View (Portable) IMPRESSION: Small right pleural effusion. Stable right lower lobe atelectasis or scarring. Electronically Signed: Cnoner Caldera MD at 20:35 EDT ,
[2022-05-03 20:23] LABS: Absolute Lymphocyte Count 2.67 X10^3/uL (0.83-4.51); Absolute Neutrophil Count 2.7 X10^3/uL (2.0-7.7); Basophil# 0.07 X10^3/uL; Basophil% 1.2 % (0-1); Eosinophil# 0.09 X10^3/uL; Eosinophils% 1.5 % (0-5); Hematocrit 31.6 % (37-47); Hemoglobin 10.6 g/dL (12.0-15.0); Lymphocyte # 2.67 X10^3/ul (0.83-4.51); Lymphocyte % 45.1 % (19-41); Mean Corp Hgb Conc 33.5 g/dL (32-36); Mean Corpuscular Hgb 30.6 pg (27.0-32.0); Mean Corpuscular Volume 91.3 fL (81-99); Mean Platelet Vol. 9.4 fl (6.2-12.0); Monocyte# 0.37 X10^3/uL; Monocyte% 6.3 % (0-10); NRBC Flagged by Analyzer 0.3 % (0-5); Neutrophil # 2.67 X10^3/uL (2.7-7.7); Neutrophil % 45.1 % (47-70); Platelet Count 267 K/mm3 (150-450); RBC Distribution Width CV 14.4 % (11.6-14.6); RBC Distribution Width SD 46.8 fl (35.1-43.9); Red Blood Count 3.46 M/mm3 (4.2-5.4); White Blood Count 5.9 K/mm3 (4.4-11.0)
[2022-05-03 20:42] LABS: Anion Gap 7 (5-15); BUN 23 mg/dL (7-18); BUN/Creat Ratio 19.3 RATIO (10-20); Calcium,Total 9.1 mg/dL (8.5-10.1); Chloride 100 mmol/L (98-107); Creatinine, Serum 1.19 mg/dL (0.55-1.02); EST Glomerular Filtration Rate 49 mL/min (>60); Est Glom Filt Rate - Afr Amer 60 mL/min (>60); Estimated Creatinine Clearance 37.01 ml/min; Glucose 130 mg/dL (74-106); Sodium Level 136 mmol/L (136-145); Troponin-I HS (w/2H Reflex) 58 pg/mL (3.0-54.0)
[2022-05-03 20:47] VITALS: O2SAT 96
[2022-05-03 22:17] LABS: Reflex Troponin-HS? (from REC) Y
[2022-05-03] MEDS: Morphine 2 MG/ML Syringe IV (22:37)
[2022-05-03 22:58] LABS: Troponin-I HS 57 pg/mL (3.0-54.0)
--- NOTE | 2022-05-03 23:37 | ED.RN ---
report called to luciano green, nurse requesting pt get HS meds of xanax, gabapentin, serequel. Dr. Alejo updated. Orders entered.
[2022-05-04] VITALS: BP 114/61; PULSE 79; RESP 17; O2SAT 96
[2022-05-04] MEDS: ALPRAZolam 0.5 MG Tablet PO (00:01)
[2022-05-04] MEDS: Gabapentin 300 MG Capsule PO (00:01)
[2022-05-04] MEDS: QUEtiapine 100 MG Tablet PO (00:01)
== END 2022-05-04 00:19 | disposition home or self-care (01) ==
PROVIDERS: Emergency Provider Emergency Medicine; PCP Family Medicine; Visit Provider Emergency Medicine
DX: R07.89 Other chest pain (principal); E11.22 Type 2 diabetes mellitus with diabetic chronic kidney disease; Z79.4 Long term (current) use of insulin; N18.30 Chronic kidney disease, stage 3 unspecified; I12.9 Hypertensive chronic kidney disease with stage 1 through stage 4 chronic kidney disease, or unspecified chronic kidney disease; F32.A Depression, unspecified; R06.09 Other forms of dyspnea; E78.5 Hyperlipidemia, unspecified; E66.9 Obesity, unspecified; Z87.891 Personal history of nicotine dependence
CPT/HCPCS: 71045; 80048; 84484; 85025; 93005; 96374; 99285; A4216

== ENCOUNTER → 2022-05-12 | Outpatient (REF) | payer SELFPAY ==
[2022-05-12 09:30] LABS: Hematocrit 35.5 % (37-47); Hemoglobin 11.7 g/dL (12.0-15.0); Mean Corpuscular Hgb 30.5 pg (27.0-32.0); Mean Corpuscular Volume 92.7 fL (81-99); Platelet Count 287 K/mm3 (150-450); RBC Distribution Width CV 14.5 % (11.6-14.6); RBC Distribution Width SD 48.8 fl (35.1-43.9); Red Blood Count 3.83 M/mm3 (4.2-5.4); White Blood Count 8.6 K/mm3 (4.4-11.0)
[2022-05-12 09:49] LABS: Anion Gap 6 (5-15); BUN 26 mg/dL (7-18); BUN/Creat Ratio 21.8 RATIO (10-20); Calcium,Total 9.7 mg/dL (8.5-10.1); Chloride 99 mmol/L (98-107); Creatinine, Serum 1.19 mg/dL (0.55-1.02); EST Glomerular Filtration Rate 49 mL/min (>60); Est Glom Filt Rate - Afr Amer 60 mL/min (>60); Glucose 161 mg/dL (74-106); Sodium Level 135 mmol/L (136-145)
== END | disposition home or self-care (01) ==
LOC: OLS.WHLTCC 07:50
PROVIDERS: PCP Family Medicine; Visit Provider Family Medicine
DX: M51.16 Intervertebral disc disorders with radiculopathy, lumbar region (principal); E11.42 Type 2 diabetes mellitus with diabetic polyneuropathy; E11.22 Type 2 diabetes mellitus with diabetic chronic kidney disease; N18.31 Chronic kidney disease, stage 3a; M62.81 Muscle weakness (generalized); R26.2 Difficulty in walking, not elsewhere classified
CPT/HCPCS: 36415; 80048; 85027

== ENCOUNTER 2022-05-20 22:03 | Observation (INO) | payer MEDICARE, MEDICAID, SELFPAY ==
[2022-05-20 22:05] VITALS: BP 89/52; PULSE 91; RESP 18; TEMP 36; O2SAT 95; BMI 38.9
--- NOTE | 2022-05-20 22:21 | EKG12_ITS ---
Test Reason : CP Blood Pressure : / mmHG Vent. Rate : 086 BPM Atrial Rate : 086 BPM P-R Int : 180 ms QRS Dur : 066 ms QT Int : 348 ms P-R-T Axes : 039 -18 010 degrees QTc Int : 416 ms Normal sinus rhythm Low voltage QRS Inferior infarct , age undetermined Anterolateral infarct , age undetermined Abnormal ECG Confirmed by MCKINLEY SANTANA, JAISON ([id number]), fashion editor MILE MCMAHAN ([id number]) on 05/25/2022 11:13:40 AM Referred By: IBETH Confirmed By:STEFANIE SEN MD
[2022-05-20] MEDS: Morphine 2 MG/ML Syringe IV (22:30)
[2022-05-20] MEDS: Ondansetron 4 MG/2 ML Vial IV (22:31)
[2022-05-20 22:32] VITALS: BP 112/66; PULSE 83; RESP 14; O2SAT 99
[2022-05-20 22:41] LABS: Absolute Lymphocyte Count 2.77 X10^3/uL (0.83-4.51); Absolute Neutrophil Count 3.3 X10^3/uL (2.0-7.7); Basophil# 0.06 X10^3/uL; Basophil% 0.9 % (0-1); Eosinophil# 0.13 X10^3/uL; Hematocrit 32.4 % (37-47); Hemoglobin 10.9 g/dL (12.0-15.0); Lymphocyte # 2.77 X10^3/ul (0.83-4.51); Lymphocyte % 42.3 % (19-41); Mean Corp Hgb Conc 33.6 g/dL (32-36); Mean Corpuscular Hgb 30.8 pg (27.0-32.0); Mean Corpuscular Volume 91.5 fL (81-99); Mean Platelet Vol. 9.5 fl (6.2-12.0); Monocyte% 4.6 % (0-10); NRBC Flagged by Analyzer 0 % (0-5); Neutrophil # 3.26 X10^3/uL (2.7-7.7); Neutrophil % 49.7 % (47-70); Platelet Count 291 K/mm3 (150-450); RBC Distribution Width CV 14.3 % (11.6-14.6); RBC Distribution Width SD 47.6 fl (35.1-43.9); Red Blood Count 3.54 M/mm3 (4.2-5.4); White Blood Count 6.6 K/mm3 (4.4-11.0)
[2022-05-20 22:46] LABS: Prothrombin Time (Protime)PT. 13.1 SECONDS (11.7-14.9)
[2022-05-20 23:51] LABS: Anion Gap 6 (5-15); BUN 19 mg/dL (7-18); BUN/Creat Ratio 15.4 RATIO (10-20); Calcium,Total 9.2 mg/dL (8.5-10.1); Chloride 99 mmol/L (98-107); Creatinine, Serum 1.23 mg/dL (0.55-1.02); EST Glomerular Filtration Rate 48 mL/min (>60); Est Glom Filt Rate - Afr Amer 58 mL/min (>60); Estimated Creatinine Clearance 35.81 ml/min; Glucose 322 mg/dL (74-106); Magnesium 2.1 mg/dL (1.6-2.6); Potassium 4.3 mmol/L (3.5-5.1); Sodium Level 135 mmol/L (136-145); Troponin-I HS 35 pg/mL (3.0-54.0)
[2022-05-21] VITALS (18 sets, daily range): BP systolic 80–117; BP diastolic 56–76; PULSE 68–85; RESP 14–19; TEMP 36.4–36.8; O2SAT 90–99; BMI 36.3
--- NOTE | 2022-05-21 02:52 | PCM.HP.STD ---
HPI - General General Date of Admission: 05/21/22 Date of Service: 05/21/22 Chief Complaint: Chest pain HPI Narrative The patient is a 56 y/o F w/ PMHx: Obesity, CKD stage IIIa, HTN, HLD, Former tobacco use, Chronic normocytic anemia, Depression and Anxiety, Diabetes mellitus type II, GERD w/ Hx Gastric ulcer, History of narcotic abuse/opiate abuse previously on Zubsolv Rx per Dr. Rivas; however, last Rx noted 10/2021 with noted opiate detox admission, Hypothyroidism s/p prior thyroidectomy who presents to the [facility] ED on 05/21/22 with history of ongoing intermittent chest discomfort which patient notes is in the midsternal region described as a pressure and rated 8-9 out of 10 in severity when it occurs with associated nausea and mild dyspnea although primarily with exertion with several recent ED evaluations and an outpatient stress test which was unremarkable however its been persistent prompting her return to the ED for further evaluation. Work-up in the ED included T96.8, heart rate 91, BP initially 89/52 with most recent repeat 117/71, respiratory rate 18, 95% on 2 L nasal cannula, CBC with WBC 6.6, hemoglobin 10.9, platelet 291 without marked shift, unremarkable coags, BMP with sodium 135, BUN/creat 19/1.23, glucose 322, magnesium 2.1, TSH 109, troponin 325-->32, EKG sinus rhythm with no acute evidence of ischemia, CTPA with no evidence of PE, small to moderate sized pericardial effusion, trace bilateral pleural effusion, subsegmental densities in the bilateral lower lobes likely atelectasis. ED physician discussed case with Dr. Lombardo with whom the patient is set to see in May who was amenable to admission for consideration cardiac catheterization. In the ED patient administered Zofran 4 mg x 2, morphine 2 mg IV x2, normal saline bolus. [facility] Medical History Carpal tunnel syndrome Chronic back pain Chronic renal failure, stage 3a Depression Depressive disorder Diabetes Elevated troponin Fatigue Former smoker History of diabetes mellitus HTN (hypertension) Hyperlipidemia Intervertebral disc disorder with radiculopathy of lumbar region Intervertebral disc disorder with radiculopathy of lumbar region Kidney disease Kidney stones Migraines Normochromic normocytic anemia Obesity (BMI 35.0-39.9 without comorbidity) Opiate abuse, continuous Pure hypercholesterolemia Stomach ulcer Thyroid disease Type II diabetes mellitus, uncontrolled Home Medications rizatriptan 10 mg tablet 10 mg PO PRN PRN Migraine Symptoms 12/27/17 [History Last Taken Unknown] quetiapine 100 mg tablet (Seroquel) 100 mg PO QHS sleep 06/20/21 [History Last Taken 04/23/22] pen needle,diabetic, disp unit 29 gauge x 1/2, remover and disposal unit #100 ea 06/23/21 [Rx Last Taken Unknown] alprazolam 0.5 mg tablet 0.5 mg PO BID mood 03/20/22 [History Last Taken 04/24/22] gabapentin 300 mg capsule 300 mg PO TIDCM #60 caps 03/24/22 [Rx Last Taken 04/24/22] insulin glargine-yfgn 100 unit/mL (3 mL) subcutaneous pen 35 unit (0.35 mL) subcut DAILY #0 mL 03/24/22 [Rx Last Taken 04/24/22] insulin lispro 100 unit/mL subcutaneous pen (Humalog KwikPen (U-100) Insulin) 10 unit (0.1 mL) subcut TIDAC #0 mL 03/24/22 [Rx Last Taken 04/24/22] acetaminophen 500 mg tablet 1,000 mg PO TID PRN pain #0 tabs 03/27/22 [Rx Last Taken 04/23/22 16:40] polyethylene glycol 3350 17 gram oral powder packet 17 g PO DAILY PRN PRN constipation #0 ea 03/27/22 [Rx Last Taken Unknown] sennosides 8.6 mg-docusate sodium 50 mg tablet (Stool Softener-Stimulant Laxative) 2 tab PO BID #0 tabs 03/27/22 [Rx Last Taken Unknown] aluminum-mag hydroxide-simethicone 400 mg-400 mg-40 mg/5 mL oral susp (Mylanta Maximum Strength) 15 ml PO Q4H PRN Stomach Upset 04/24/22 [History Last Taken 04/24/22] baclofen 10 mg tablet 10 mg PO Q6H PRN Pain 04/24/22 [History Last Taken 04/24/22 05:18] insulin lispro 100 unit/mL subcutaneous pen (Humalog KwikPen (U-100) Insulin) See Protocol subcut ACHS 04/24/22 [History Last Taken 04/24/22] lidocaine 4 % topical patch 2 patch topical DAILY PRN Back Pain 04/24/22 [History Last Taken 04/24/22] midodrine 5 mg tablet 5 mg PO BID 05/20/22 [History Last Taken Unknown] Allergy/AdvReac Type Severity Reaction Status Date / Time celecoxib [From Celebrex] Allergy Itching Verified 05/20/22 22:05 ciprofloxacin [From Cipro] Allergy Swelling Verified 05/20/22 22:05 ciprofloxacin HCl Allergy Swelling Verified 05/20/22 22:05 [From Cipro] codeine Allergy Hives Verified 05/20/22 22:05 ibuprofen Allergy Hives Verified 05/20/22 22:05 naproxen Allergy Hives Verified 05/20/22 22:05 Penicillins Allergy Hives Verified 05/20/22 22:05 tramadol HCl [From Ultram] Allergy Hives Verified 05/20/22 22:05 ketorolac [From Toradol] AdvReac Swelling Verified 05/20/22 22:05 Family History Other CVA (cerebral vascular accident) Cancer Diabetes Myocardial infarction Surgical History H/O: hysterectomy Hx of section S/P trigger finger release Social History household members: other details: currently living in a NH for therapy for chronic back pain housing: senior care Smoking Status: Former smoker Tobacco: How many years used: 46 how long ago did patient quit smoking: She quit smoking in August or September of 2021. She started smoking at 14 alcohol intake: never substance use type: other details: has a hx of chronic opioid use ROS ROS Narrative Admission Review of Systems: CONSTITUTIONAL: No weight loss, fever, chills, + weakness or fatigue. HEENT: Eyes: No visual loss, blurred vision, double vision or yellow sclerae. Ears, Nose, Throat: No hearing loss, sneezing, congestion, runny nose or sore throat. SKIN: No rash or itching, lesions, wounds. CARDIOVASCULAR: + chest pain, chest pressure or chest discomfort, No palpitations, edema, orthopnea, syncopal events. RESPIRATORY: + shortness of breath, No cough or sputum, wheezing, hemoptysis. GASTROINTESTINAL: No anorexia, nausea, vomiting or diarrhea, abdominal pain, melena, BRBPR. GENITOURINARY: No dysuria, frequency, urgency or retention. NEUROLOGICAL: No headache, dizziness, syncope, paralysis, ataxia, numbness or tingling in the extremities, focal weakness, change in bowel or bladder control, seizure. MUSCULOSKELETAL: + muscle, back pain, joint pain or stiffness. HEMATOLOGIC: + anemia, bleeding or bruising. LYMPHATICS: No enlarged nodes. No history of splenectomy. PSYCHIATRIC: + history of depression or anxiety. ENDOCRINOLOGIC: No reports of sweating, cold or heat intolerance. No polyuria or polydipsia. ALLERGIES: No history of asthma, hives, eczema or rhinitis. Vital Signs Vital Signs Vital Signs: 05/20/22 22:05 05/20/22 22:22 05/20/22 22:32 Temperature 96.8 F L Temperature Source Temporal Pulse Rate 91 83 Respiratory Rate 18 14 Respiratory Effort Normal Non-Labored Blood Pressure 89/52 L 112/66 Blood Pressure Mean 64 81 Pulse Ox 95 99 Oxygen Delivery Method Nasal Cannula Nasal Cannula Oxygen Flow Rate (L/min) 2 2 Weight Weight: 199 lb 11.821 oz Body Mass Index (BMI) 38.9 Physical Exam Narrative Physical Examination: General: Awake, alert, oriented x 3 and cooperative, laying in the ED bed, fatigued, recent narcotics, appears comfortable but states she still having significant chest discomfort. Skin: Normal color, normal turgor, no icterus, no cyanosis. HEENT: AT/NC, EOMI, PERRLA, mildly dry MM, no carotid bruits or JVD noted. Lungs: Mildly diminished, greater bases, appropriate effort, no rales, ronchi or wheezing. Heart: Currently regular rate and rhythm; no gallop, rub audible. Abdomen: Soft, obese, NTTP, ND, distant normal BS, no HSM. Extremities: No cyanosis, clubbing, or edema. Neurological: Patient awake, alert, oriented as noted, cognitive function mildly decreased from baseline likely secondary to recent narcotic therapies; pupils equally reactive to light and accommodation, cranial nerves II-XII grossly normal, moving all 4 extremities, no focal deficits, strength mildly to moderately global decrease secondary to acute complaints and recent sedated medications. Psychiatric: Affect appears fatigued, flat, no acute evidence of depressive or anxiety feelings. Results Lab / Micro Data Result Diagrams: 05/20/22 22:24 05/20/22 22:24 Labs: Laboratory Results - last 24 hr 05/20/22 22:24: WBC 6.6, RBC 3.54 L, Hgb 10.9 L, Hct 32.4 L, MCV 91.5, MCH 30.8, MCHC 33.6, RDW Std Deviation 47.6 H, RDW Coeff of Anisa 14.3, Plt Count 291, MPV 9.5, Immature Gran % (Auto) 0.500, Neut % (Auto) 49.7, Lymph % (Auto) 42.3 H, [place] % (Auto) 4.6, Eos % (Auto) 2.0, Baso % (Auto) 0.9, Absolute Neuts (auto) 3.3, Absolute Lymphs (auto) 2.77, Nucleated RBC % 0 05/20/22 22:24: Sodium 135 L, Potassium 4.3, Chloride 99, Carbon Dioxide 30.0, Anion Gap 6, BUN 19 H, Creatinine 1.23 H, Estim Creat Clear Calc 35.81, Est GFR (MDRD) Af Amer 58 L, Est GFR (MDRD) Non-Af 48 L, BUN/Creatinine Ratio 15.4, Glucose 322 H, Calcium 9.2, Magnesium 2.1, Troponin I High Sens 35, TSH 109.00 H 05/20/22 22:24: PT 13.1, INR 1.0, APTT 29.0 Radiology Impression Chest CTA 05/21/22 22:24 IMPRESSION: No evidence of pulmonary embolism. Small to moderate-sized pericardial effusion. Trace bilateral pleural effusions. Subsegmental densities in the bilateral lower lobes, likely atelectasis. Aspiration or pneumonia not excluded Electronically Signed: Yifan Garcia MD at 0:46 EDT , Assessment & Plan Assessment/Plan (1) Nonspecific chest pain: PLAN: Plan The patient is a 56 y/o F w/ PMHx: Obesity, CKD stage IIIa, HTN, HLD, Former tobacco use, Chronic normocytic anemia, Depression and Anxiety, Diabetes mellitus type II, GERD w/ Hx Gastric ulcer, History of narcotic abuse/opiate abuse previously on Zubsolv Rx per Dr. Rivas; however, last Rx noted 10/2021 with noted opiate detox admission, Hypothyroidism s/p prior thyroidectomy who presents to the [facility] ED on 05/21/22 with history of ongoing intermittent chest discomfort which patient notes is in the midsternal region described as a pressure and rated 8-9 out of 10 in severity when it occurs with associated nausea and mild dyspnea although primarily with exertion with several recent ED evaluations and an outpatient stress test which was unremarkable however its been persistent prompting her return to the ED for further evaluation. #1. Chest Pain, recurrent with normal prior stress test with incidental small to moderate sized pericardial effusion: EKG in ED sinus rhythm with no acute evidence of ischemia, CTPA with as noted small to moderate size pericardial effusion, trace bilateral pleural effusions, atelectasis, troponin x2 normal. Will admit to PCU, place on a monitored bed to assure no acute myocardial infarction with serial cardiac enzymes and EKGs. Will request echocardiogram given pericardial findings. Cardiology is aware of patient and will continue consultation with potential plans cardiac catheterization. Will maintain n.p.o. and judiciously hydrate. FLP in AM. Magnesium level 2.1. Holding on ASA addition given allergies. We will have as needed morphine however need to be cautious given patient's narcotic abuse history as noted #12. #2. Hypothyroidism with abnormal TSH: Status post likely prior thyroidectomy, admission TSH 109, on current list no regimen noted, remotely she had previously been on levothyroxine 175 mcg daily, reviewed skilled facility assisted living list and it is not on her current medication MAR, will obtain free T4 and restart this dose until further information obtained. #3. Hypertension: Patient with prior history however she has had lower blood pressures and is continued currently on midodrine therapy. #4. Hyperlipidemia: Not on statin therapy, FLP in AM. #5. Chronic Kidney Disease Stage IIIa: Admission BUN/Cr 19/1.23, baseline renal function 1.0-1.2, repeat BMP in AM. #6. Chronic normocytic anemia: Admission hemoglobin 10.9, baseline 10-11, stable, trend. #7. Obesity: Weight loss and lifestyle changes encouraged. #8. GERD with history of prior gastric ulcer: Not on any regimen, if necessary may add PPI. #9. Former tobacco usage: Encourage continued tobacco cessation. #10. Anxiety and depression: We will continue patient home psychiatric regimen. #11. Diabetes mellitus type II: Hold oral home regimen, continue home insulin regimen, ADA diet, accu checks w/ ISS. #12. History of narcotic abuse/opiate abuse: Patient previously on Zubsolv Rx per Dr. Rivas; however, last Rx noted 10/2021 with noted opiate detox admission. Will need to be cautious with narcotic usage given history. #13. DVT prophylaxis: SCDs, Lovenox. Charges/Coding Visit Charges OBSV E&M: 29454 Initial observation care L3
[2022-05-21 02:57] LABS: Troponin-I HS 32 pg/mL (3.0-54.0)
--- NOTE | 2022-05-21 03:00 | EDS_ITS ---
HPI History of Present Illness Chief Complaint: Chest Pain Narrative Narrative: Patient is a 56-year-old female from assisted living with past medical history of diabetes renal insufficiency hypothyroidism. She has been seen in the ER 4 times now for chest discomfort. She states she will be sitting around when she will suddenly get mid to left sternal chest pain which she describes more as a pressure and states it can radiate towards the left shoulder. She denies any diaphoresis nausea vomiting or shortness of breath associated with this. She states that she is scheduled to see cardiology but not for another 3 weeks. She is also been placed on midodrine because she has been having bouts of hypotension. Reports evening she was lying in bed talking with her when she developed this chest discomfort. And with concern that this could be cardiac she was sent in for evaluation [facility] Medical History Carpal tunnel syndrome Chronic back pain Chronic renal failure, stage 3a Depression Depressive disorder Diabetes Elevated troponin Fatigue Former smoker History of diabetes mellitus HTN (hypertension) Hyperlipidemia Intervertebral disc disorder with radiculopathy of lumbar region Intervertebral disc disorder with radiculopathy of lumbar region Kidney disease Kidney stones Migraines Normochromic normocytic anemia Obesity (BMI 35.0-39.9 without comorbidity) Opiate abuse, continuous Pure hypercholesterolemia Stomach ulcer Thyroid disease Type II diabetes mellitus, uncontrolled Home Medications rizatriptan 10 mg tablet 10 mg PO PRN PRN Migraine Symptoms 12/27/17 [History Last Taken Unknown] quetiapine 100 mg tablet (Seroquel) 100 mg PO QHS sleep 06/20/21 [History Last Taken 04/23/22] pen needle,diabetic, disp unit 29 gauge x 1/2, remover and disposal unit #100 ea 06/23/21 [Rx Last Taken Unknown] alprazolam 0.5 mg tablet 0.5 mg PO BID mood 03/20/22 [History Last Taken 04/24/22] gabapentin 300 mg capsule 300 mg PO TIDCM #60 caps 03/24/22 [Rx Last Taken 04/24/22] insulin glargine-yfgn 100 unit/mL (3 mL) subcutaneous pen 35 unit (0.35 mL) subcut DAILY #0 mL 03/24/22 [Rx Last Taken 04/24/22] insulin lispro 100 unit/mL subcutaneous pen (Humalog KwikPen (U-100) Insulin) 10 unit (0.1 mL) subcut TIDAC #0 mL 03/24/22 [Rx Last Taken 04/24/22] acetaminophen 500 mg tablet 1,000 mg PO TID PRN pain #0 tabs 03/27/22 [Rx Last Taken 04/23/22 16:40] polyethylene glycol 3350 17 gram oral powder packet 17 g PO DAILY PRN PRN constipation #0 ea 03/27/22 [Rx Last Taken Unknown] sennosides 8.6 mg-docusate sodium 50 mg tablet (Stool Softener-Stimulant Laxative) 2 tab PO BID #0 tabs 03/27/22 [Rx Last Taken Unknown] aluminum-mag hydroxide-simethicone 400 mg-400 mg-40 mg/5 mL oral susp (Mylanta Maximum Strength) 15 ml PO Q4H PRN Stomach Upset 04/24/22 [History Last Taken 04/24/22] baclofen 10 mg tablet 10 mg PO Q6H PRN Pain 04/24/22 [History Last Taken 04/24/22 05:18] insulin lispro 100 unit/mL subcutaneous pen (Humalog KwikPen (U-100) Insulin) See Protocol subcut ACHS 04/24/22 [History Last Taken 04/24/22] lidocaine 4 % topical patch 2 patch topical DAILY PRN Back Pain 04/24/22 [History Last Taken 04/24/22] midodrine 5 mg tablet 5 mg PO BID 05/20/22 [History Last Taken Unknown] Allergy/AdvReac Type Severity Reaction Status Date / Time celecoxib [From Celebrex] Allergy Itching Verified 05/20/22 22:05 ciprofloxacin [From Cipro] Allergy Swelling Verified 05/20/22 22:05 ciprofloxacin HCl Allergy Swelling Verified 05/20/22 22:05 [From Cipro] codeine Allergy Hives Verified 05/20/22 22:05 ibuprofen Allergy Hives Verified 05/20/22 22:05 naproxen Allergy Hives Verified 05/20/22 22:05 Penicillins Allergy Hives Verified 05/20/22 22:05 tramadol HCl [From Ultram] Allergy Hives Verified 05/20/22 22:05 ketorolac [From Toradol] AdvReac Swelling Verified 05/20/22 22:05 Family History Other CVA (cerebral vascular accident) Cancer Diabetes Myocardial infarction Surgical History H/O: hysterectomy Hx of section S/P trigger finger release Social History household members: other details: currently living in a NH for therapy for chronic back pain housing: custodial Smoking Status: Former smoker Tobacco: How many years used: 46 how long ago did patient quit smoking: She quit smoking in August or September of 2021. She started smoking at 14 alcohol intake: never substance use type: other details: has a hx of chronic opioid use ROS ROS ED Constitutional Constitutional ED: Denies chills or fever(s) ENT ENT ED: Denies sore throat Cardiovascular Cardiovascular: Reports chest pain; Denies palpitations or racing heartbeat Respiratory/Chest Respiratory/Chest: Denies cough or dyspnea Gastrointestinal Gastrointestinal: Denies abdominal pain, diarrhea, nausea or vomiting Genitourinary Genitourinary ED: Denies dysuria Musculoskeletal Musculoskeletal: Denies myalgias Integumentary Denies rash Neurologic Neurologic: Denies headache(s) Hematologic/Lymphatic Hematologic/Lymphatic: Denies easy bleeding or easy bruising EXAM Physical Exam Const Vital Signs: 05/20/22 22:05 05/20/22 22:22 05/20/22 22:32 Temperature 96.8 F L Temperature Source Temporal Pulse Rate 91 83 Respiratory Rate 18 14 Respiratory Effort Normal Non-Labored Blood Pressure 89/52 L 112/66 Blood Pressure Mean 64 81 Pulse Ox 95 99 Oxygen Delivery Method Nasal Cannula Nasal Cannula Oxygen Flow Rate (L/min) 2 2 05/21/22 02:00 05/21/22 03:08 05/21/22 03:00 Temperature 97.9 F Temperature Source Temporal Pulse Rate 84 77 77 Respiratory Rate 16 19 H Respiratory Effort Blood Pressure 117/71 116/72 Blood Pressure Mean 86 86 Pulse Ox 97 96 Oxygen Delivery Method Nasal Cannula Nasal Cannula Oxygen Flow Rate (L/min) 2 2 Positive well nourished, well developed and obese General Appearance ED: well developed Nutritional Appearance: obese HEENT Reports moist mucous membranes Eyes PERRL and EOMs intact bilaterally Neck supple and no JVD Chest Wall Chest Narrative: There is reproducible pain with palpation to the left anterior lateral chest wall that the patient states is slightly different than the pain she has been experiencing. There is no bony deformity or crepitance noted Resp normal respiratory effort Resp Narrative: Breath sounds are diminished throughout with faint rhonchi in bilateral bases but no signs of respiratory distress Cardio regular rate and regular rhythm Rate: other Other Details: Radial pulses are plus 2 out of 4 bilaterally are equal and symmetric GI normal to inspection, nondistended, normoactive bowel sounds, non-tender and non-distended GI Narrative: No voluntary guarding or rigidity no pulsatile mass Auscultation: normoactive bowel sounds Palpation: soft Extremity normal to inspection Extremity Narrative: No asymmetric edema no pitting edema negative Homans' sign bilaterally Neuro oriented x3 and CN's II-XII intact bilaterally Sensorium / Orientation: alert Psych mental status grossly normal Skin no rashes or lesions noted MDM MDM MDM Narrative Medical decision making narrative: Patient been to the ER 4 times now for intermittent chest discomfort. Chart review reveals she had a stress test that showed no clinically significant findings. Also her previous troponins have been stable at approximately 55. Based on her history of diabetes and renal insufficiency and the fact she has been in the ER 4 times for the same complaint I did elect to perform a CTA today. CTA revealed pericardial effusion but otherwise no signs of aortic injury or pulmonary embolus. The patient's troponin was actually lower than her baseline at 35 with delta attending down to 32. At this time it does not appear patient is having a cardiovascular event nor she having lung pathology or pulmonary embolus. However as this is her fourth presentation in the ER I did elect to discuss the case with cardiology. At this time they agree that with her current symptoms that she can be admitted to the medicine service with plan for heart catheterization to put to rest any concern regarding her recurrent chest pain Lab Data Attestation: I reviewed the patient's lab results. Labs: Laboratory Results - last 24 hr 05/20/22 05/20/22 05/20/22 22:24 22:24 22:24 WBC 6.6 RBC 3.54 L Hgb 10.9 L Hct 32.4 L MCV 91.5 MCH 30.8 MCHC 33.6 RDW Std Deviation 47.6 H RDW Coeff of Anisa 14.3 Plt Count 291 MPV 9.5 Immature Gran % (Auto) 0.500 Neut % (Auto) 49.7 Lymph % (Auto) 42.3 H [place] % (Auto) 4.6 Eos % (Auto) 2.0 Baso % (Auto) 0.9 Absolute Neuts (auto) 3.3 Absolute Lymphs (auto) 2.77 Nucleated RBC % 0 PT 13.1 INR 1.0 APTT 29.0 Sodium 135 L Potassium 4.3 Chloride 99 Carbon Dioxide 30.0 Anion Gap 6 BUN 19 H Creatinine 1.23 H Estim Creat Clear Calc 35.81 Est GFR (MDRD) Af Amer 58 L Est GFR (MDRD) Non-Af 48 L BUN/Creatinine Ratio 15.4 Glucose 322 H Calcium 9.2 Magnesium 2.1 Troponin I High Sens 35 TSH 109.00 H 05/21/22 02:20 WBC RBC Hgb Hct MCV MCH MCHC RDW Std Deviation RDW Coeff of Anisa Plt Count MPV Immature Gran % (Auto) Neut % (Auto) Lymph % (Auto) [place] % (Auto) Eos % (Auto) Baso % (Auto) Absolute Neuts (auto) Absolute Lymphs (auto) Nucleated RBC % PT INR APTT Sodium Potassium Chloride Carbon Dioxide Anion Gap BUN Creatinine Estim Creat Clear Calc Est GFR (MDRD) Af Amer Est GFR (MDRD) Non-Af BUN/Creatinine Ratio Glucose Calcium Magnesium Troponin I High Sens 32 TSH Radiography Diagnostic Testing: Clinical Impression(s) from Imaging Studies Chest CTA 05/21/22 22:24 IMPRESSION: No evidence of pulmonary embolism. Small to moderate-sized pericardial effusion. Trace bilateral pleural effusions. Subsegmental densities in the bilateral lower lobes, likely atelectasis. Aspiration or pneumonia not excluded Electronically Signed: Yifan Garcia MD at 0:46 EDT , Discharge Plan Dx/Rx/DC Orders Clinical Impression: Nonspecific chest pain, Diabetes, Renal insufficiency, Hypothyroidism Disposition Disposition: Acute Care Hospital [facility] Discharge Date/Time: 05/21/22 03:48
[2022-05-21] MEDS: Ondansetron 4 MG/2 ML Vial IV (03:09)
[2022-05-21] MEDS: Morphine 2 MG/ML Syringe IV (03:09)
--- NOTE | 2022-05-21 03:53 | EKG12_ITS ---
Test Reason : CP Blood Pressure : / mmHG Vent. Rate : 082 BPM Atrial Rate : 082 BPM P-R Int : 164 ms QRS Dur : 074 ms QT Int : 380 ms P-R-T Axes : 039 -12 016 degrees QTc Int : 443 ms Normal sinus rhythm Low voltage QRS Inferior infarct (cited on or before 17-MAR-2017) Anterolateral infarct (cited on or before 12-DEC-2020) Abnormal ECG When compared with ECG of 20-MAY-2022 22:26, No significant change was found Confirmed by OSCAR SANTANA, MIRACLE ([id number]), society editor JAMAAL CALLES ([id number]) on 06/02/2022 9:59:58 AM Referred By: OLIVIER Confirmed By:MIRACLE MOORE MD
[2022-05-21] MEDS: 0.9% Saline Lock 10 ML Syringe IV (04:21)
[2022-05-21] MEDS: 0.9% Normal Saline 1,000 ML 100 ML IV (04:21)
[2022-05-21 05:21] LABS: Bedside Glucose 217 mg/dL (74-106)
[2022-05-21] MEDS: Levothyroxine 175 MCG Tablet PO (06:27)
[2022-05-21] MEDS: Acetaminophen 325 MG Tablet 650 MG PO (06:27)
[2022-05-21] MEDS: Baclofen 10 MG Tablet PO (06:27)
[2022-05-21] MEDS: Midodrine HCl 5 MG Tablet PO (06:27)
[2022-05-21 06:30] LABS: Absolute Lymphocyte Count 2.91 X10^3/uL (0.83-4.51); Absolute Neutrophil Count 2.3 X10^3/uL (2.0-7.7); Basophil# 0.05 X10^3/uL; Basophil% 0.9 % (0-1); Eosinophil# 0.12 X10^3/uL; Eosinophils% 2.1 % (0-5); Hemoglobin 10.8 g/dL (12.0-15.0); Lymphocyte # 2.91 X10^3/ul (0.83-4.51); Lymphocyte % 51.4 % (19-41); Mean Corp Hgb Conc 32.7 g/dL (32-36); Mean Corpuscular Hgb 30.3 pg (27.0-32.0); Mean Corpuscular Volume 92.4 fL (81-99); Mean Platelet Vol. 9.2 fl (6.2-12.0); Monocyte# 0.31 X10^3/uL; Monocyte% 5.5 % (0-10); NRBC Flagged by Analyzer 0 % (0-5); Neutrophil # 2.25 X10^3/uL (2.7-7.7); Neutrophil % 39.7 % (47-70); Platelet Count 240 K/mm3 (150-450); RBC Distribution Width CV 14.2 % (11.6-14.6); RBC Distribution Width SD 48.4 fl (35.1-43.9); Red Blood Count 3.57 M/mm3 (4.2-5.4); White Blood Count 5.7 K/mm3 (4.4-11.0)
--- NOTE | 2022-05-21 06:48 | CON.PCM.CA_ITS ---
Assessment & Plan Assessment/Plan (1) Nonspecific chest pain: PLAN: She presents with recurrent chest discomfort etiology of which is unclear at this time. I would recommend that due to the numerous admissions for the same without any discernible course we are conclusively exclude coronary artery disease with a left heart catheterization. The risk benefits alternatives of been explained to her she understands and agrees to proceed and depending on the findings further recommendations will be made. Addendum: Cardiac catheterization demonstrated the following: Normal left main coronary artery. Left anterior descending artery with moderate 50% stenosis. Left circumflex artery with mid segment moderate 50% stenosis. Nondominant right coronary artery. Preserved ejection fraction by echocardiogram. Based on the above angiographic findings the above did not appear to be hemodynamically significant and within normal stress test I think that her chest discomfort is likely noncoronary in etiology. We will continue with risk factor modification. Thank you for allowing me to participate in the care of your patient. Please do n't hesitate to call if any issues arise. HPI Consult Data Date of Consult: 05/21/22 HPI Narrative HPI Narrative: SURI OCONNOR, is a 56 F who presents to the emergency room 4 times in the last 6 weeks with chest pain. She has a history of hypertension hypothyroidism diabetes mellitus currently domiciled in an extended care facility. On her last visit she underwent a stress test which demonstrated no evidence of ischemia. She presents again at this time and says that it feels like a pressure-like sensation on her chest and she felt like pushing the person off. She has had no dyspnea no diaphoresis no near syncope or syncope. Her cardiac enzymes were noted to be normal. However due to the recurrent admissions to the emergency room for chest discomfort it was felt that cardiology should see for further evaluation and management. Her EKG did not demonstrate any acute changes. [facility] Medical History Carpal tunnel syndrome Chronic back pain Chronic renal failure, stage 3a Depression Depressive disorder Diabetes Elevated troponin Fatigue Former smoker History of diabetes mellitus HTN (hypertension) Hyperlipidemia Intervertebral disc disorder with radiculopathy of lumbar region Intervertebral disc disorder with radiculopathy of lumbar region Kidney disease Kidney stones Migraines Normochromic normocytic anemia Obesity (BMI 35.0-39.9 without comorbidity) Opiate abuse, continuous Pure hypercholesterolemia Stomach ulcer Thyroid disease Type II diabetes mellitus, uncontrolled Home Medications rizatriptan 10 mg tablet 10 mg PO PRN PRN Migraine Symptoms 12/27/17 [History La st Taken Unknown] quetiapine 100 mg tablet (Seroquel) 100 mg PO QHS sleep 06/20/21 [History Last Taken 04/23/22] pen needle,diabetic, disp unit 29 gauge x 1/2, remover and disposal unit #100 ea 06/23/21 [Rx Last Taken Unknown] alprazolam 0.5 mg tablet 0.5 mg PO BID mood 03/20/22 [History Last Taken 04/24/22] gabapentin 300 mg capsule 300 mg PO TIDCM #60 caps 03/24/22 [Rx Last Taken 04/24/22] insulin glargine-yfgn 100 unit/mL (3 mL) subcutaneous pen 35 unit (0.35 mL) subcut DAILY #0 mL 03/24/22 [Rx Last Taken 04/24/22] insulin lispro 100 unit/mL subcutaneous pen (Humalog KwikPen (U-100) Insulin) 10 unit (0.1 mL) subcut TIDAC #0 mL 03/24/22 [Rx Last Taken 04/24/22] acetaminophen 500 mg tablet 1,000 mg PO TID PRN pain #0 tabs 03/27/22 [Rx Last Taken 04/23/22 16:40] polyethylene glycol 3350 17 gram oral powder packet 17 g PO DAILY PRN PRN constipation #0 ea 03/27/22 [Rx Last Taken Unknown] sennosides 8.6 mg-docusate sodium 50 mg tablet (Stool Softener-Stimulant Laxative) 2 tab PO BID #0 tabs 03/27/22 [Rx Last Taken Unknown] aluminum-mag hydroxide-simethicone 400 mg-400 mg-40 mg/5 mL oral susp (Mylanta Maximum Strength) 15 ml PO Q4H PRN Stomach Upset 04/24/22 [History Last Taken 04/24/22] baclofen 10 mg tablet 10 mg PO Q6H PRN Pain 04/24/22 [History Last Taken 04/24/22 05:18] insulin lispro 100 unit/mL subcutaneous pen (Humalog KwikPen (U-100) Insulin) See Protocol subcut ACHS 04/24/22 [History Last Taken 04/24/22] lidocaine 4 % topical patch 2 patch topical DAILY PRN Back Pain 04/24/22 [History Last Taken 04/24/22] midodrine 5 mg tablet 5 mg PO BID 05/20/22 [History Last Taken Unknown] aspirin 81 mg tablet,delayed release (Constance Low Dose Aspirin) 81 mg PO DAILY #30 tabs 05/21/22 [Rx Last Taken Unknown] atorvastatin 40 mg tablet 40 mg PO QHS #30 tabs 05/21/22 [Rx Last Taken Unknown] metoprolol succinate 25 mg tablet,extended release 24 hr 25 mg PO DAILY #30 tabs 05/21/22 [Rx Last Taken Unknown] Allergy/AdvReac Type Severity Reaction Status Date / Time celecoxib [From Celebrex] Allergy Itching Verified 05/20/22 22:05 ciprofloxacin [From Cipro] Allergy Swelling Verified 05/20/22 22:05 ciprofloxacin HCl Allergy Swelling Verified 05/20/22 22:05 [From Cipro] codeine Allergy Hives Verified 05/20/22 22:05 ibuprofen Allergy Hives Verified 05/20/22 22:05 naproxen Allergy Hives Verified 05/20/22 22:05 Penicillins Allergy Hives Verified 05/20/22 22:05 tramadol HCl [From Ultram] Allergy Hives Verified 05/20/22 22:05 ketorolac [From Toradol] AdvReac Swelling Verified 05/20/22 22:05 Family History Other CVA (cerebral vascular accident) Cancer Diabetes Myocardial infarction Surgical History H/O: hysterectomy Hx of section S/P trigger finger release Social History household members: other details: currently living in a NH for therapy for chronic back pain housing: senior living Smoking Status: Former smoker Tobacco: How many years used: 46 how long ago did patient quit smoking: She quit smoking in August or September of 2021. She started smoking at 14 alcohol intake: never substance use type: other details: has a hx of chronic opioid use ROS Constitutional Constitutional: Denies fever(s) or weight loss Eyes Eyes: Reports systems reviewed and no addt'l complaints, except as documented ENT HEENT: Reports systems reviewed and no addt'l complaints, except as documented Cardiovascular Cardiovascular: Reports chest pain at rest and chest pain with activity; Denies dyspnea at rest, dyspnea on exertion, edema, palpitations or paroxysmal nocturnal dyspnea Respiratory/Chest Respiratory/Chest: Denies dyspnea on exertion, productive cough, shortness of breath at rest or shortness of breath with exertion Gastrointestinal Gastrointestinal: Denies change in bowel habits, nausea, vomiting or weight changes Genitourinary Genitourinary: Denies difficulty urinating Musculoskeletal Musculoskeletal: Denies joint stiffness or muscle weakness Integumentary Integumentary: Denies lesions Neurologic Neurologic: Denies dizziness or syncope Psychiatric Psychiatric: Denies anxiety Endocrine Endocrinology: Denies excessive sweating or fatigue Hematologic/Lymphatic Hematologic/Lymphatic: Denies anemia Allergic/Immunologic Allergic/Immunologic: Denies seasonal rhinorrhea Risk Stratification Risk Stratification Applicable: No Objective Data Vital Signs: Vital Signs Temp Pulse Resp BP Pulse Ox O2 Del Method O2 Flow Rate 97.7 F L 85 16 88/62 L 98 Nasal Cannula 2 05/21/22 06:40 05/21/22 06:40 05/21/22 06:40 05/21/22 06:40 05/21/22 06:40 05/21/22 06:40 05/21/22 06:40 Oxygen Flow Rate (L/min) 2 Oxygen Delivery Method Nasal Cannula Weight: 186 lb 4.65 oz Body Mass Index (BMI) 36.3 Intake & Output: Intake and Output for Last 24 Hours 05/19/22 05/20/22 05/21/22 23:59 23:59 23:59 Intake Total 500 / 500 Balance 500 / 500 Lab / Micro Data Result Diagrams: 05/21/22 06:20 05/21/22 06:20 Labs: Laboratory Results - last 24 hr 05/20/22 22:24: WBC 6.6, RBC 3.54 L, Hgb 10.9 L, Hct 32.4 L, MCV 91.5, MCH 30.8, MCHC 33.6, RDW Std Deviation 47.6 H, RDW Coeff of Anisa 14.3, Plt Count 291, MPV 9.5, Immature Gran % (Auto) 0.500, Neut % (Auto) 49.7, Lymph % (Auto) 42.3 H, Cannon % (Auto) 4.6, Eos % (Auto) 2.0, Baso % (Auto) 0.9, Absolute Neuts (auto) 3.3, Absolute Lymphs (auto) 2.77, Nucleated RBC % 0 05/20/22 22:24: Sodium 135 L, Potassium 4.3, Chloride 99, Carbon Dioxide 30.0, Anion Gap 6, BUN 19 H, Creatinine 1.23 H, Estim Creat Clear Calc 35.81, Est GFR (MDRD) Af Amer 58 L, Est GFR (MDRD) Non-Af 48 L, BUN/Creatinine Ratio 15.4, Gl ucose 322 H, Calcium 9.2, Magnesium 2.1, Troponin I High Sens 35, TSH 109.00 H 05/20/22 22:24: PT 13.1, INR 1.0, APTT 29.0 05/21/22 02:20: Troponin I High Sens 32 05/21/22 04:46: POC Glucose 217 H 05/21/22 06:20: WBC 5.7, RBC 3.57 L, Hgb 10.8 L, Hct 33.0 L, MCV 92.4, MCH 30.3, MCHC 32.7, RDW Std Deviation 48.4 H, RDW Coeff of Anisa 14.2, Plt Count 240, MPV 9.2, Immature Gran % (Auto) 0.400, Neut % (Auto) 39.7 L, Lymph % (Auto) 51.4 H, Cannon % (Auto) 5.5, Eos % (Auto) 2.1, Baso % (Auto) 0.9, Absolute Neuts (auto) 2.3, Absolute Lymphs (auto) 2.91, Nucleated RBC % 0 Cardiology Labs/Tests 05/20/22 22:24: WBC 6.6, RBC 3.54 L, Hgb 10.9 L, Hct 32.4 L, MCV 91.5, MCH 30.8, MCHC 33.6, Plt Count 291, MPV 9.5, Immature Gran % (Auto) 0.500, Neut % (Auto) 49.7, Lymph % (Auto) 42.3 H, Cannon % (Auto) 4.6, Eos % (Auto) 2.0, Baso % (Auto) 0.9, Absolute Neuts (auto) 3.3, Nucleated RBC % 0 05/20/22 22:24: Sodium 135 L, Potassium 4.3, Chloride 99, Carbon Dioxide 30.0, Anion Gap 6, BUN 19 H, Creatinine 1.23 H, Est GFR (MDRD) Af Amer 58 L, Est GFR (MDRD) Non-Af 48 L, BUN/Creatinine Ratio 15.4, Glucose 322 H, Calcium 9.2, Magnesium 2.1 05/20/22 22:24: PT 13.1, INR 1.0, APTT 29.0 05/21/22 06:20: WBC 5.7, RBC 3.57 L, Hgb 10.8 L, Hct 33.0 L, MCV 92.4, MCH 30.3, MCHC 32.7, Plt Count 240, MPV 9.2, Immature Gran % (Auto) 0.400, Neut % (Auto) 39.7 L, Lymph % (Auto) 51.4 H, Cannon % (Auto) 5.5, Eos % (Auto) 2.1, Baso % (Auto) 0.9, Absolute Neuts (auto) 2.3, Nucleated RBC % 0 Rhythm: EKG: ECHO: Stress Test: Cardiac Cath: PCI: CT Surgery: Holter monitor: EPS: PPM: CXR: Chest CT Scan: Radiography Diagnostic Testing: Radiology Impression Chest CTA 05/21/22 22:24 IMPRESSION: No evidence of pulmonary embolism. Small to moderate-sized pericardial effusion. Trace bilateral pleural effusions. Subsegmental densities in the bilateral lower lobes, likely atelectasis. Aspiration or pneumonia not excluded Electronically Signed: Yifan Garcia MD at 0:46 EDT ,
[2022-05-21 06:59] LABS: ALB/GLOB Ratio 0.8 RATIO (0.9-2.4); AST(SGOT) 42 U/L (15-37); Alanine Aminotransfer ALT/SGPT 83 U/L (13-56); Albumin, Serum 3.1 g/dL (3.2-5.0); Alkaline Phosphatase 76 U/L (45-117); Anion Gap 5 (5-15); BUN 18 mg/dL (7-18); Calcium,Total 8.6 mg/dL (8.5-10.1); Chloride 100 mmol/L (98-107); Cholesterol 244 mg/dL (200); EST Glomerular Filtration Rate 49 mL/min (>60); Est Glom Filt Rate - Afr Amer 59 mL/min (>60); Estimated Creatinine Clearance 36.71 ml/min; Globulin 3.8 g/dL (2.2-4.2); Glucose 197 mg/dL (74-106); High Density Lipoprotein 31 mg/dL; Potassium 4.3 mmol/L (3.5-5.1); Protein, Total 6.9 g/dL (6.4-8.2); Sodium Level 136 mmol/L (136-145); T4 Free Direct 0.14 ng/dL (0.76-1.46); Triglycerides 337 mg/dL; Troponin-I HS 32 pg/mL (3.0-54.0); Very Low Density Lipoprotein 67 mg/dL (5-40)
[2022-05-21] MEDS: Gabapentin 300 MG Capsule PO (08:18)
[2022-05-21] MEDS: ALPRAZolam 0.5 MG Tablet PO (08:18)
[2022-05-21 08:41] LABS: Bedside Glucose 164 mg/dL (74-106)
--- NOTE | 2022-05-21 09:27 | CASEMGMT ---
Tertiary facilities in-network with patient's insurance: [facility], [place], [facility], [facility], [facility], , [facility], [facility].
--- NOTE | 2022-05-21 11:00 | TREXTCAR_ITS ---
Diet Diet Order/Speech Therapy: 05/21/22 03:53 Diet: Nothing Per Oral Diet Comments: NPO except sip water with medications Routine Orders/Code Status Suppository Type: Dulcolax 10mg Suppository Frequency: Daily PRN Code Status: Full Code Therapies Weight Bearing: Weight bearing as tolerated Extremity Affected:: Bilateral Lower Physical Therapy: Eval and Treat Occupational Therapy: Eval and Treat Speech Therapy: Eval and Treat Problem/Diagnosis (1) Nonspecific chest pain: Status: Acute Code(s): R07.9 - Chest pain, unspecified Allergies/Procedures Done in Hospital Allergies celecoxib [From Celebrex] Allergy (Verified 05/20/22 22:05) Itching ciprofloxacin [From Cipro] Allergy (Verified 05/20/22 22:05) Swelling ciprofloxacin HCl [From Cipro] Allergy (Verified 05/20/22 22:05) Swelling codeine Allergy (Verified 05/20/22 22:05) Hives ibuprofen Allergy (Verified 05/20/22 22:05) Hives naproxen Allergy (Verified 05/20/22 22:05) Hives Penicillins Allergy (Verified 05/20/22 22:05) Hives tramadol HCl [From Ultram] Allergy (Verified 05/20/22 22:05) Hives ketorolac [From Toradol] Adverse Reaction (Verified 05/20/22 22:05) Swelling Type of Care/Length of Stay Estimated LOS: Convalescent Care Less Than 30 days Type of Care Needed: Skilled Rehab Potential: Good Prognosis: Good Additional Orders/Day of Discharge Day of Discharge: 05/21/22 Discharge Plan Admission Admit Date/Time: 05/21/22 03:13 Primary Reason for Your Visit: Atypical chest pain, moderate coronary artery disease Attending Provider: Ramez Prieto Primary Care Provider: Ganesh Garcia Consulting Providers: Júnior Lombardo ; Hansa Cast Discharge Orders/Prescriptions Prescriptions: New metoprolol succinate 25 mg Tablet Extended Release 24 Hr 25 mg PO DAILY Qty: 30 2RF atorvastatin 40 mg tablet 40 mg PO QHS Qty: 30 2RF aspirin [Constance Low Dose Aspirin] 81 mg tablet,delayed release (DR/EC) 81 mg PO DAILY Qty: 30 3RF Continued rizatriptan 10 tablet 10 mg PO PRN PRN (Reason: Migraine Symptoms) Label Comments: quetiapine [Seroquel] 100 mg Tablet 100 mg PO QHS (DME) pen needle,diabetic, disp unit 29 gauge x 1/2 needle See Rx Instructions .ROUTE .MEDSUPPLY Qty: 100 0RF Rx Instructions: As directed alprazolam 0.5 mg tablet 0.5 mg PO BID insulin glargine-yfgn 100 unit/mL (3 mL) Insulin Pen 35 unit subcut DAILY Qty: 0 0RF insulin lispro [Humalog KwikPen Insulin] 100 unit/mL Insulin Pen 10 unit subcut TIDAC Qty: 0 0RF gabapentin 300 mg Capsule 300 mg PO TIDCM Qty: 60 0RF acetaminophen 500 mg Tablet 1,000 mg PO TID PRN (Reason: pain) Qty: 0 0RF polyethylene glycol 3350 17 gram Powder In Packet 17 g PO DAILY PRN PRN (Reason: constipation) Qty: 0 0RF sennosides-docusate sodium [Stool Softener-Stimulant Laxat] 8.6-50 mg Tablet 2 tab PO BID Qty: 0 0RF baclofen 10 mg Tablet 10 mg PO Q6H PRN (Reason: Pain) lidocaine 4 % Adhesive Patch,Medicated 2 patch TOPICAL DAILY PRN (Reason: Back Pain) Label Comments: PER [facility] MAR PT GETS 2 PATCHES APPLIED TO BACK IN THE AM AND REMOVED AFTER 12 HOURS IN THE PM. alum-mag hydroxide-simeth [Mylanta Maximum Strength] 400-400-40 mg/5 mL Suspension 15 ml PO Q4H PRN (Reason: Stomach Upset) insulin lispro [Humalog KwikPen Insulin] 100 unit/mL insulin pen See Protocol subcut ACHS Protocol: 6. Sliding Scale Insulin Custom Condition: mg/dl range Dose/Route: Number of Units Condition: 150-209 Dose/Route: 3 Condition: 210-259 Dose/Route: 6 Condition: 260-324 Dose/Route: 9 Condition: 325-374 Dose/Route: 12 Condition: 375-409 Dose/Route: 14 Condition: 410-449 Dose/Route: 16 Condition: >449 Instruction: CALL Protocol Text: Custom Sliding Scale midodrine 5 mg Tablet 5 mg PO BID Rx Instructions: do not give last dose of day after 6PM or within 4 hrs of bedtime Referrals / Follow Up: Júnior Lombardo MD [[facility] Staff - Active Staff] - Within 1 Month Ganesh Garcia MD [Primary Care Provider] - Within 2 Weeks Disposition Disposition (needs filled in before D/C Order can be placed): Home, Self Care
--- NOTE | 2022-05-21 11:09 | CASEMGMT ---
Addendum entered by Delores Devries 05/21/22 11:51: Laura let SW know that patient is currently there skilled so she will need a pre-cert to return. GINNA made sure there were orders for PT/OT. Delores HOBBS Original Note: Patient is from [place]. GINNA faxed updates. GINNA also e-mailed Laura at [place] and asked if patient will need a pre-cert to return as she is currently observation status. Await response. Delores HOBBS
--- NOTE | 2022-05-21 11:22 | PCM.DC ---
Discharge Instructions Diet Discharge Diet: Low fat / Low cholesterol, 1800 Calorie Control Diet and 2000 mg Sodium Diet Activity Discharge Activity: Return to Normal Activity Dressing / Incision Call your doctor if you observe: Fever of 101 or Higher, Coldness, Increased Pain, Numbness or Tingling, Change in Color, Inability to urinate, Inability to have a bowel movement, Using more than 1 pad per hour, Shortness of breath, Dizziness, Fainting spells, Swelling in the ankles, Chest pain, Prolonged hiccupping, Increased palpitations (irregular heartbeat), Calf discomfort and Uncontrolled pain Follow Up Care Test Results: Test results from this visit will be discussed in further detail at your follow-up appointment, if applicable. Discharge Plan Admission Admit Date/Time: 05/21/22 03:13 Primary Reason for Your Visit: Atypical chest pain, moderate coronary artery disease Attending Provider: Ramez Prieto Primary Care Provider: Ganesh Garcia Consulting Providers: Júnior Lombardo ; Hansa Cast Discharge Orders/Prescriptions Prescriptions: New metoprolol succinate 25 mg Tablet Extended Release 24 Hr 25 mg PO DAILY Qty: 30 2RF atorvastatin 40 mg tablet 40 mg PO QHS Qty: 30 2RF aspirin [Constanec Low Dose Aspirin] 81 mg tablet,delayed release (DR/EC) 81 mg PO DAILY Qty: 30 3RF Continued rizatriptan 10 tablet 10 mg PO PRN PRN (Reason: Migraine Symptoms) Label Comments: quetiapine [Seroquel] 100 mg Tablet 100 mg PO QHS (DME) pen needle,diabetic, disp unit 29 gauge x 1/2 needle See Rx Instructions .ROUTE .MEDSUPPLY Qty: 100 0RF Rx Instructions: As directed alprazolam 0.5 mg tablet 0.5 mg PO BID insulin glargine-yfgn 100 unit/mL (3 mL) Insulin Pen 35 unit subcut DAILY Qty: 0 0RF insulin lispro [Humalog KwikPen Insulin] 100 unit/mL Insulin Pen 10 unit subcut TIDAC Qty: 0 0RF gabapentin 300 mg Capsule 300 mg PO TIDCM Qty: 60 0RF acetaminophen 500 mg Tablet 1,000 mg PO TID PRN (Reason: pain) Qty: 0 0RF polyethylene glycol 3350 17 gram Powder In Packet 17 g PO DAILY PRN PRN (Reason: constipation) Qty: 0 0RF sennosides-docusate sodium [Stool Softener-Stimulant Laxat] 8.6-50 mg Tablet 2 tab PO BID Qty: 0 0RF baclofen 10 mg Tablet 10 mg PO Q6H PRN (Reason: Pain) lidocaine 4 % Adhesive Patch,Medicated 2 patch TOPICAL DAILY PRN (Reason: Back Pain) Label Comments: PER [facility] MAR PT GETS 2 PATCHES APPLIED TO BACK IN THE AM AND REMOVED AFTER 12 HOURS IN THE PM. alum-mag hydroxide-simeth [Mylanta Maximum Strength] 400-400-40 mg/5 mL Suspension 15 ml PO Q4H PRN (Reason: Stomach Upset) insulin lispro [Humalog KwikPen Insulin] 100 unit/mL insulin pen See Protocol subcut ACHS Protocol: 6. Sliding Scale Insulin Custom Condition: mg/dl range Dose/Route: Number of Units Condition: 150-209 Dose/Route: 3 Condition: 210-259 Dose/Route: 6 Condition: 260-324 Dose/Route: 9 Condition: 325-374 Dose/Route: 12 Condition: 375-409 Dose/Route: 14 Condition: 410-449 Dose/Route: 16 Condition: >449 Instruction: CALL MD Protocol Text: Custom Sliding Scale midodrine 5 mg Tablet 5 mg PO BID Rx Instructions: do not give last dose of day after 6PM or within 4 hrs of bedtime Referrals / Follow Up: Ganesh Garcia MD [Primary Care Provider] - Within 2 Weeks GrupoJúnior hassan MD [Med Staff - Active Staff] - Within 1 Month Disposition Disposition (needs filled in before D/C Order can be placed): Home, Self Care
--- NOTE | 2022-05-21 11:51 | NURSING ---
called report to woo [facility] in medical laboratory manager
[2022-05-21 12:10] LABS: Bedside Glucose 164 mg/dL (74-106)
--- NOTE | 2022-05-21 13:27 | PCM.DC.SUM ---
Providers Date of Admission: 05/21/22 Date of Discharge: 05/21/22 Primary Care Physician: Dr. Ganesh Garcia MD Consultations 05/21/22 03:53 Consult: Cardiology Routine Consulting Provider: Júnior Lombardo Reason for Consult: Chest Pain EMERGENT Consult: No MD Notified: Yes Date Notified: 05/21/22 Time Notified: 03:15 Method of Notification: ED Physician Initiated Reason For Visit: CHEST PAIN Diagnosis Discharge Diagnosis (1) Nonspecific chest pain: Status: Acute Code(s): R07.9 - Chest pain, unspecified Medications at Discharge Home Medications rizatriptan 10 mg tablet 10 mg PO PRN PRN Migraine Symptoms 12/27/17 quetiapine 100 mg tablet (Seroquel) 100 mg PO QHS sleep 06/20/21 pen needle,diabetic, disp unit 29 gauge x 1/2, remover and disposal unit #100 ea 06/23/21 alprazolam 0.5 mg tablet 0.5 mg PO BID mood 03/20/22 gabapentin 300 mg capsule 300 mg PO TIDCM #60 caps 03/24/22 insulin glargine-yfgn 100 unit/mL (3 mL) subcutaneous pen 35 unit (0.35 mL) subcut DAILY #0 mL 03/24/22 insulin lispro 100 unit/mL subcutaneous pen (Humalog KwikPen (U-100) Insulin) 10 unit (0.1 mL) subcut TIDAC #0 mL 03/24/22 acetaminophen 500 mg tablet 1,000 mg PO TID PRN pain #0 tabs 03/27/22 polyethylene glycol 3350 17 gram oral powder packet 17 g PO DAILY PRN PRN constipation #0 ea 03/27/22 sennosides 8.6 mg-docusate sodium 50 mg tablet (Stool Softener-Stimulant Laxative) 2 tab PO BID #0 tabs 03/27/22 aluminum-mag hydroxide-simethicone 400 mg-400 mg-40 mg/5 mL oral susp (Mylanta Maximum Strength) 15 ml PO Q4H PRN Stomach Upset 04/24/22 baclofen 10 mg tablet 10 mg PO Q6H PRN Pain 04/24/22 insulin lispro 100 unit/mL subcutaneous pen (Humalog KwikPen (U-100) Insulin) See Protocol subcut ACHS 04/24/22 lidocaine 4 % topical patch 2 patch topical DAILY PRN Back Pain 04/24/22 midodrine 5 mg tablet 5 mg PO BID 05/20/22 aspirin 81 mg tablet,delayed release (Constance Low Dose Aspirin) 81 mg PO DAILY #30 tabs 05/21/22 atorvastatin 40 mg tablet 40 mg PO QHS #30 tabs 05/21/22 metoprolol succinate 25 mg tablet,extended release 24 hr 25 mg PO DAILY #30 tabs 05/21/22 Hospital Course Summary of Care Provided Hospital Course: This is a 56-year-old female with history of recurrent chest pain came to ED for chest pain. She had been to ED 4 times in the last 6 weeks for chest pain. Patient had stress test which did not demonstrate ischemia during her last visit. She describes chest pain as pressure-like intermittent mainly associated with exertion, lasting for about 45 minutes. There is no associated shortness of breath/dyspnea on with near-syncope or syncope. Patient was admitted in PCU. Serial troponin enzymes negative. Twelve-lead EKG did not demonstrate any acute ST-T changes. Patient was taken to [facility]. Re Recording Mixer was consulted. Dr. Beasley called me that patient had moderate coronary artery disease but does not need PCI or stenting. Full cath report pending. Fasting profile done and is elevated. LDL 146, triglycerides 337, TC 244 and HDL 31. TSH 109. Free T4 low. Glucose 164 reasonably controlled. Other diagnoses as mentioned below 1. Moderate coronary artery disease: Patient is being discharged on baby aspirin, metoprolol succinate, high intensity statin atorvastatin. Patient recently had echo in April 2022 reported EF 55%, mild concentric LVH. 2.? Hypothyroidism status post thyroidectomy, probably nonadherent to medication: Status post likely prior thyroidectomy, admission TSH 109, free T4 0.14. Levothyroxine was increased to 200 mcg daily. Advise repeat TSH and free T4 after 1 month. Follow-up with PCP #3.? Hypotension: Patient on midodrine. #4.? Hyperlipidemia: As mentioned above. #5.? Chronic Kidney Disease Stage IIIa: Admission BUN/Cr 19/1.23, baseline renal function 1.0-1.2, repeat creatinine 1.2 on baseline. #6.? Chronic normocytic anemia: Admission hemoglobin 10.9, baseline 10-11 #7.? Obesity: Weight loss and lifestyle changes encouraged. #8.? GERD with history of prior gastric ulcer: Not on any regimen, if necessary may add PPI. #9.? Former tobacco usage: Encourage continued tobacco cessation. #10.? Anxiety and depression: We will continue patient home psychiatric regimen. #11.? Diabetes mellitus type II: Hold oral home regimen, continue home insulin regimen, ADA diet, accu checks w/ ISS. #12.? History of narcotic abuse/opiate abuse: Patient previously on Zubsolv Rx per Dr. Rivas #13.? DVT prophylaxis: SCDs, Lovenox. Discharge medication reconciliation done. Discharge follow-up instructions completed. Discharge process discussed with the patient and all questions were answered to patient's satisfaction. Total time spent, exact 35 minutes on discharge meds reconciliation, examination, coordination of care with nurses and ancillary staff, review of imaging and blood test and discussion with the patient on follow-up instructions. Physical Exam Narrative Patient does not have chest pain in the morning. Plan for cardiac cath. General: Alert, Oriented x3, Cooperative, BMI 36.4 kg per metered square. HEENT: Atraumatic, PERRLA, EOMI, Normocephalic Oral: No Gingival or Mucosal Lesions/ Ulcerations Neck: Supple, No JVD, Negative Carotid Bruits Lungs: Air entry diminished in bilateral lung bases. No crepitation/rhonchi Cardiovascular: Regular rate, Regular Rhythm, Normal S1, Normal S2, No murmurs Abdomen: Bowel Sounds Present, Soft, Non Tender, Non-Distended : No renal angle tenderness. No suprapubic tenderness. Extremities: No edema, Capillary Refill Less than 3 Seconds Skin: No rashes, No breakdown Musculoskeletal: No Tenderness to Palpation of Joints or Extremities Neurological: Cranial nerves II-XII grossly intact, DTR 2+/4 and Symmetrical, Neuro grossly intact Psych/Mental Status: Normal Affect, Appropriate. Weight / BMI Weight Weight: 186 lb 4.65 oz Body Mass Index (BMI) 36.3 ABG / Lab / Microbiology Data Result Diagrams: 05/21/22 06:20 05/21/22 06:20 Laboratory: Laboratory Results - last 24 hr 05/20/22 22:24: WBC 6.6, RBC 3.54 L, Hgb 10.9 L, Hct 32.4 L, MCV 91.5, MCH 30.8, MCHC 33.6, RDW Std Deviation 47.6 H, RDW Coeff of Anisa 14.3, Plt Count 291, MPV 9.5, Immature Gran % (Auto) 0.500, Neut % (Auto) 49.7, Lymph % (Auto) 42.3 H, [place] % (Auto) 4.6, Eos % (Auto) 2.0, Baso % (Auto) 0.9, Absolute Neuts (auto) 3.3, Absolute Lymphs (auto) 2.77, Nucleated RBC % 0 05/20/22 22:24: Sodium 135 L, Potassium 4.3, Chloride 99, Carbon Dioxide 30.0, Anion Gap 6, BUN 19 H, Creatinine 1.23 H, Estim Creat Clear Calc 35.81, Est GFR (MDRD) Af Amer 58 L, Est GFR (MDRD) Non-Af 48 L, BUN/Creatinine Ratio 15.4, Glucose 322 H, Calcium 9.2, Magnesium 2.1, Troponin I High Sens 35, TSH 109.00 H 05/20/22 22:24: PT 13.1, INR 1.0, APTT 29.0 05/21/22 02:20: Troponin I High Sens 32 05/21/22 04:46: POC Glucose 217 H 05/21/22 06:20: WBC 5.7, RBC 3.57 L, Hgb 10.8 L, Hct 33.0 L, MCV 92.4, MCH 30.3, MCHC 32.7, RDW Std Deviation 48.4 H, RDW Coeff of Anisa 14.2, Plt Count 240, MPV 9.2, Immature Gran % (Auto) 0.400, Neut % (Auto) 39.7 L, Lymph % (Auto) 51.4 H, [place] % (Auto) 5.5, Eos % (Auto) 2.1, Baso % (Auto) 0.9, Absolute Neuts (auto) 2.3, Absolute Lymphs (auto) 2.91, Nucleated RBC % 0 05/21/22 06:20: Sodium 136, Potassium 4.3, Chloride 100, Carbon Dioxide 31.0, Anion Gap 5, BUN 18, Creatinine 1.20 H, Estim Creat Clear Calc 36.71, Est GFR (MDRD) Af Amer 59 L, Est GFR (MDRD) Non-Af 49 L, BUN/Creatinine Ratio 15.0, Glucose 197 H, Calcium 8.6, Total Bilirubin 0.20, AST 42 H, ALT 83 H, Alkaline Phosphatase 76, Troponin I High Sens 32, Total Protein 6.9, Albumin 3.1 L, Globulin 3.8, Albumin/Globulin Ratio 0.8 L, Triglycerides 337 H, Cholesterol 244 H, LDL Cholesterol 146 H, VLDL Cholesterol 67 H, HDL Cholesterol 31 L, Free T4 0.14 L 05/21/22 08:08: POC Glucose 164 H 05/21/22 11:45: POC Glucose 164 H Radiography Diagnostic Testing: Radiology Impression Chest CTA 05/21/22 22:24 IMPRESSION: No evidence of pulmonary embolism. Small to moderate-sized pericardial effusion. Trace bilateral pleural effusions. Subsegmental densities in the bilateral lower lobes, likely atelectasis. Aspiration or pneumonia not excluded Electronically Signed: Yifan Garcia MD at 0:46 EDT [place] Location ID and State: [facility] / [place] Tel , Service support , D/C Instructions Discharge Diet: Low fat / Low cholesterol, 1800 Calorie Control Diet and 2000 mg Sodium Diet Call your doctor if you observe: Fever of 101 or Higher, Coldness, Increased Pain, Numbness or Tingling, Change in Color, Inability to urinate, Inability to have a bowel movement, Using more than 1 pad per hour, Shortness of breath, Dizziness, Fainting spells, Swelling in the ankles, Chest pain, Prolonged hiccupping, Increased palpitations (irregular heartbeat), Calf discomfort and Uncontrolled pain Meaningful Use Info Meaningful Use Diagnoses (Choose all that apply): None applicable Discharge Plan Admission Admit Date/Time: 05/21/22 03:13 Primary Reason for Your Visit: Atypical chest pain, moderate coronary artery disease Attending Provider: Ramez Prieto Primary Care Provider: Ganesh Garcia Consulting Providers: Júnior Lombardo ; Hansa Cast Discharge Orders/Prescriptions Prescriptions: New metoprolol succinate 25 mg Tablet Extended Release 24 Hr 25 mg PO DAILY Qty: 30 2RF atorvastatin 40 mg tablet 40 mg PO QHS Qty: 30 2RF aspirin [Constance Low Dose Aspirin] 81 mg tablet,delayed release (DR/EC) 81 mg PO DAILY Qty: 30 3RF Continued rizatriptan 10 tablet 10 mg PO PRN PRN (Reason: Migraine Symptoms) Label Comments: quetiapine [Seroquel] 100 mg Tablet 100 mg PO QHS (DME) pen needle,diabetic, disp unit 29 gauge x 1/2 needle See Rx Instructions .ROUTE .MEDSUPPLY Qty: 100 0RF Rx Instructions: As directed alprazolam 0.5 mg tablet 0.5 mg PO BID insulin glargine-yfgn 100 unit/mL (3 mL) Insulin Pen 35 unit subcut DAILY Qty: 0 0RF insulin lispro [Humalog KwikPen Insulin] 100 unit/mL Insulin Pen 10 unit subcut TIDAC Qty: 0 0RF gabapentin 300 mg Capsule 300 mg PO TIDCM Qty: 60 0RF acetaminophen 500 mg Tablet 1,000 mg PO TID PRN (Reason: pain) Qty: 0 0RF polyethylene glycol 3350 17 gram Powder In Packet 17 g PO DAILY PRN PRN (Reason: constipation) Qty: 0 0RF sennosides-docusate sodium [Stool Softener-Stimulant Laxat] 8.6-50 mg Tablet 2 tab PO BID Qty: 0 0RF baclofen 10 mg Tablet 10 mg PO Q6H PRN (Reason: Pain) lidocaine 4 % Adhesive Patch,Medicated 2 patch TOPICAL DAILY PRN (Reason: Back Pain) Label Comments: PER [facility] PT GETS 2 PATCHES APPLIED TO BACK IN THE AM AND REMOVED AFTER 12 HOURS IN THE PM. alum-mag hydroxide-simeth [Mylanta Maximum Strength] 400-400-40 mg/5 mL Suspension 15 ml PO Q4H PRN (Reason: Stomach Upset) insulin lispro [Humalog KwikPen Insulin] 100 unit/mL insulin pen See Protocol subcut ACHS Protocol: 6. Sliding Scale Insulin Custom Condition: mg/dl range Dose/Route: Number of Units Condition: 150-209 Dose/Route: 3 Condition: 210-259 Dose/Route: 6 Condition: 260-324 Dose/Route: 9 Condition: 325-374 Dose/Route: 12 Condition: 375-409 Dose/Route: 14 Condition: 410-449 Dose/Route: 16 Condition: >449 Instruction: CALL MD Protocol Text: Custom Sliding Scale midodrine 5 mg Tablet 5 mg PO BID Rx Instructions: do not give last dose of day after 6PM or within 4 hrs of bedtime Referrals / Follow Up: Júnior Lombardo MD [Med Staff - Active Staff] - Within 1 Month Ganesh Garcia MD [Primary Care Provider] - Within 2 Weeks Disposition Disposition (needs filled in before D/C Order can be placed): Home, Self Care Charges/Coding Visit Charges OBSV E&M: 78650 Observation care discharge
--- NOTE | 2022-05-21 13:42 | CASEMGMT ---
Patient is ready for discharge today. GINNA called Laura at [facility] and since patient is observation and she will be returning to [facility] before 9p tonight patient does not need a pre-cert. Delores Devries DRIVE SHAFT AND STEERING POST REPAIRERPaola HOBBS
--- NOTE | 2022-05-21 15:47 | CASEMGMT ---
GINNA arranged for patient to get picked up at 4p via cot. GINNA faxed orders, package pick up time, and COVID test to [facility]. Kenzie d/c estate planning director assisted in notifying RN, unit secretary, patient, her , and [place] at [facility]. Plan: d/c back to [facility] under skilled level of care. [facility] transported via cot. Delores Devries DIRECTOR OF SECURITY ANJEL
--- NOTE | 2022-05-21 16:12 | NURSING ---
called report to nurse jana at [facility]
--- NOTE | 2022-05-21 22:24 | CT_ITS ---
STUDY: CTA CHEST REASON FOR EXAM: Female, 56 years old. chest pain RADIATION DOSAGE (If Supplied By Facility): CTDIvol = ( 14.96 ) mGy, DLP = ( 482.90 ) mGycm TECHNIQUE: The examination was performed with the intravenous administration of IV 100mL Isovue-370. Post-processing of the angiographic images was performed, with multiplanar reformation and 3D reconstruction. Individualized dose optimization techniques were used for this CT. COMPARISON: None. FINDINGS: No filling defect in the pulmonary arteries to suggest pulmonary embolism. Atherosclerosis of the thoracic aorta and coronary arteries. Trace bilateral pleural effusions. Small to moderate size pericardial effusion. No adenopathy. No pneumothorax. Subsegmental densities in the bilateral lower lobes, likely atelectasis. Aspiration or pneumonia cannot be excluded. Sections through the upper abdomen demonstrate evidence of prior cholecystectomy. Calcified granuloma in the spleen. Multilevel thoracic spondylosis. CT/CTA Chest W/WO Contrast IMPRESSION: No evidence of pulmonary embolism. Small to moderate-sized pericardial effusion. Trace bilateral pleural effusions. Subsegmental densities in the bilateral lower lobes, likely atelectasis. Aspiration or pneumonia not excluded Electronically Signed: Yifan Garcia MD at 0:46 EDT ,
--- NOTE | 2022-05-28 12:12 | CL.D_ITS ---
Patient Name: SURI OCONNOR Study Date: 05/21/2022 Performing: Júnior Lombardo MD Ht: 59.84 inches 152 cm : 1965 Wt: 187.39 lbs 85 kg Age: 56 Gender: female BSA: 1.81 PROCEDURE(S) PERFORMED [id number])[facility] CLINICAL PROFILE AND INDICATIONS Indications: Suspected CAD Heart Failure: None Stress/Imaging Date: 04/25/22Stress Test with SPECT MPI: Negative CAD Presentations: Symptom unlikely to be ischemic. CONCLUSIONS Moderate disease noted in the mid left anterior descending artery with mild calcification, and modera te disease noted in the mid circumflex artery. RECOMMENDATIONS Medical therapy DESCRIPTION OF PROCEDURE The patient arrived to the procedure lab. The risks and benefits of the procedure as well as a full d escription of our services here and current unavailability of surgical backup were fully explained to the patient and/or their significant other prior to the catheterization. The Timeout was completed, verifying the correct patient and procedure. The patient's procedural site was prepped and draped in the usual fashion. Local anesthetic was given subcutaneously to right radial region with Lidocaine 2% . Using a modified Seldinger technique, arterial access was obtained via the right radial artery, a 6 Fr sheath was inserted. Left Coronary Artery selective angiography was performed in multiple views u sing a 5 Fr. 4.0 Warren catheter. Right Coronary Artery selective angiography was then performed in mu ltiple views using a 5 Fr. 4.0 Warren catheter.The arterial sheath was pulled and a TR Band was applie d for hemostasis. 10cc of air CORONARY ANGIOGRAPHY DOMINANCE: Left Dominant LEFT HEART ASSESSMENT Left Ventricular Ejection Fraction: by Echo 65 % Normal LV wall motion Normal Left Ventricular systolic function LEFT MAIN: Mild calcification, Angiographically normal LEFT ANTERIOR DESCENDING ARTERY: MID LAD: Moderate luminal irregularities up to 50% CIRCUMFLEX ARTERY: MID CIRC: Moderate luminal irregularities up to 50% RIGHT CORONARY ARTERY: Mild luminal irregularities COMPLICATIONS No Complications PROCEDURE MEDICATIONS Fentanyl 50 mcg IV Versed 1 mg IV Oxygen: 2 L/min via nasal cannula Oxygen: 4 L/min via nasal cannula Heparin given IA 05/21/2022 12:40:52 Verapamil 2.5mg, Ntg 100mcgs, 3000 units of Heparin given IA 05/21/2022 12:40:52 SUMMARY OF HEMODYNAMIC DATA Time AIR REST ECG 12:03:28 Art 114/61 (77) 12:24:56 AO 103/70 (87) SA 12:42:48 Signed By Júnior Lombardo MD On 05/21/2022 14:24:33 Júnior Lombardo MD
== END 2022-05-21 13:18 | disposition skilled nursing facility (03) ==
LOC: ED 05-21 03:05 → PCU 05-21 03:19
PROVIDERS: Admitting Provider Family Medicine; Emergency Provider Emergency Medicine; PCP Family Medicine; Visit Provider Internal Medicine
DX: I25.10 Atherosclerotic heart disease of native coronary artery without angina pectoris (principal); F11.11 Opioid abuse, in remission; E11.22 Type 2 diabetes mellitus with diabetic chronic kidney disease; Z79.4 Long term (current) use of insulin; N18.31 Chronic kidney disease, stage 3a; I95.9 Hypotension, unspecified; D64.9 Anemia, unspecified; F41.9 Anxiety disorder, unspecified; E89.0 Postprocedural hypothyroidism; I12.9 Hypertensive chronic kidney disease with stage 1 through stage 4 chronic kidney disease, or unspecified chronic kidney disease; F32.A Depression, unspecified; G89.29 Other chronic pain; E78.00 Pure hypercholesterolemia, unspecified; M54.9 Dorsalgia, unspecified; Z87.891 Personal history of nicotine dependence; K21.9 Gastro-esophageal reflux disease without esophagitis; M51.9 Unspecified thoracic, thoracolumbar and lumbosacral intervertebral disc disorder; E66.9 Obesity, unspecified; Z68.38 Body mass index [BMI] 38.0-38.9, adult; Z79.899 Other long term (current) drug therapy
CPT/HCPCS: 71275; 80048; 80053; 80061; 82962; 83735; 84439; 84443; 84484; 85025; 85610; 85730; 87426; 93005; 93454; 96361; 96374; 96375; 96376; 99152; 99153; 99218; 99285; 99406; J7030; Q9967; A4216; C1769; C1894; G0378; J2405

== ENCOUNTER → 2022-05-20 | Outpatient (REF) | payer SELFPAY ==
[2022-05-20 09:17] LABS: Amphetamine Urine VISTA NEGATIVE (<1000 ng/mL); Barbiturate Urine VISTA NEGATIVE (< 200 ng/mL); Benzodiazepine Urine VISTA POSITIVE (< 200 ng/mL); Cocaine Urine VISTA NEGATIVE (< 300 ng/mL); Ecstacy Urine VISTA NEGATIVE (< 500 ng/mL); Methadone Urine VISTA NEGATIVE (< 300 ng/mL); PCP Urine VISTA NEGATIVE (< 25 ng/mL); THC Urine VISTA NEGATIVE (< 50 ng/mL); Vista UDS pH Range 6
== END | disposition home or self-care (01) ==
LOC: OLS.WHLTCC 08:11
PROVIDERS: PCP Family Medicine; Visit Provider Family Medicine
DX: M51.16 Intervertebral disc disorders with radiculopathy, lumbar region (principal); E11.42 Type 2 diabetes mellitus with diabetic polyneuropathy; M62.81 Muscle weakness (generalized); R26.2 Difficulty in walking, not elsewhere classified; R27.8 Other lack of coordination
CPT/HCPCS: 80307

== ENCOUNTER → 2022-06-09 | Outpatient (REF) | payer MEDICARE, MEDICAID, SELFPAY ==
[2022-06-09 10:28] LABS: Hematocrit 32.6 % (37-47); Hemoglobin 10.5 g/dL (12.0-15.0); Mean Corp Hgb Conc 32.2 g/dL (32-36); Mean Corpuscular Volume 93.1 fL (81-99); Mean Platelet Vol. 9.7 fl (6.2-12.0); Platelet Count 229 K/mm3 (150-450); RBC Distribution Width CV 13.8 % (11.6-14.6); RBC Distribution Width SD 47.2 fl (35.1-43.9); White Blood Count 6.8 K/mm3 (4.4-11.0)
[2022-06-09 10:44] LABS: Anion Gap 8 (5-15); BUN 18 mg/dL (7-18); BUN/Creat Ratio 16.8 RATIO (10-20); Calcium,Total 8.6 mg/dL (8.5-10.1); Chloride 103 mmol/L (98-107); Creatinine, Serum 1.07 mg/dL (0.55-1.02); EST Glomerular Filtration Rate 56 mL/min (>60); Est Glom Filt Rate - Afr Amer 68 mL/min (>60); Glucose 255 mg/dL (74-106); Potassium 3.7 mmol/L (3.5-5.1); Sodium Level 138 mmol/L (136-145)
== END ==
LOC: OLS.WHLEAS 05:00
PROVIDERS: PCP Family Medicine; Visit Provider Family Medicine
DX: E11.22 Type 2 diabetes mellitus with diabetic chronic kidney disease (principal); E11.42 Type 2 diabetes mellitus with diabetic polyneuropathy; N18.31 Chronic kidney disease, stage 3a; M51.16 Intervertebral disc disorders with radiculopathy, lumbar region; M62.81 Muscle weakness (generalized); R26.2 Difficulty in walking, not elsewhere classified
CPT/HCPCS: 36415; 80048; 85027

== ENCOUNTER → 2022-06-12 | Outpatient (CLI) | payer MEDICARE, MEDICAID, SELFPAY ==
[2022-06-12 16:24] LABS: Absolute Lymphocyte Count 2.71 X10^3/uL (0.83-4.51); Basophil# 0.05 X10^3/uL; Basophil% 0.7 % (0-1); Eosinophil# 0.14 X10^3/uL; Eosinophils% 1.9 % (0-5); Hematocrit 36.7 % (37-47); Hemoglobin 11.9 g/dL (12.0-15.0); Lymphocyte # 2.71 X10^3/ul (0.83-4.51); Lymphocyte % 36.3 % (19-41); Mean Corp Hgb Conc 32.4 g/dL (32-36); Mean Corpuscular Hgb 29.5 pg (27.0-32.0); Mean Corpuscular Volume 90.8 fL (81-99); Mean Platelet Vol. 9.6 fl (6.2-12.0); Monocyte% 6.7 % (0-10); NRBC Flagged by Analyzer 0 % (0-5); Neutrophil # 4.02 X10^3/uL (2.7-7.7); Neutrophil % 53.9 % (47-70); Platelet Count 323 K/mm3 (150-450); RBC Distribution Width CV 13.8 % (11.6-14.6); RBC Distribution Width SD 45.7 fl (35.1-43.9); Red Blood Count 4.04 M/mm3 (4.2-5.4); White Blood Count 7.5 K/mm3 (4.4-11.0)
[2022-06-12 16:47] LABS: BNP,B-Type NATRIURETIC PEPTIDE 9.7 pg/mL (0-100)
[2022-06-12 16:51] LABS: Anion Gap 8 (5-15); BUN 23 mg/dL (7-18); BUN/Creat Ratio 20.9 RATIO (10-20); Calcium,Total 8.7 mg/dL (8.5-10.1); Chloride 99 mmol/L (98-107); EST Glomerular Filtration Rate 54 mL/min (>60); Est Glom Filt Rate - Afr Amer 65 mL/min (>60); Glucose 244 mg/dL (74-106); Potassium 4.1 mmol/L (3.5-5.1); Sodium Level 135 mmol/L (136-145)
== END | disposition home or self-care (01) ==
PROVIDERS: PCP Family Medicine; Visit Provider Nurse Practitioner Gerontology
DX: R06.00 Dyspnea, unspecified (principal)
CPT/HCPCS: 36415; 80048; 83880; 85025

== ENCOUNTER → 2022-06-23 | Outpatient (REF) | payer MEDICARE, MEDICAID, SELFPAY ==
[2022-06-23 08:58] LABS: Hematocrit 32.3 % (37-47); Hemoglobin 10.6 g/dL (12.0-15.0); Mean Corp Hgb Conc 32.8 g/dL (32-36); Mean Corpuscular Hgb 29.4 pg (27.0-32.0); Mean Corpuscular Volume 89.7 fL (81-99); Mean Platelet Vol. 9.5 fl (6.2-12.0); Platelet Count 348 K/mm3 (150-450); RBC Distribution Width CV 13.2 % (11.6-14.6); RBC Distribution Width SD 43.2 fl (35.1-43.9); White Blood Count 7.4 K/mm3 (4.4-11.0)
[2022-06-23 09:18] LABS: Anion Gap 10 (5-15); BUN 22 mg/dL (7-18); BUN/Creat Ratio 19.3 RATIO (10-20); Calcium,Total 8.8 mg/dL (8.5-10.1); Chloride 99 mmol/L (98-107); Creatinine, Serum 1.14 mg/dL (0.55-1.02); EST Glomerular Filtration Rate 52 mL/min (>60); Est Glom Filt Rate - Afr Amer 63 mL/min (>60); Glucose 193 mg/dL (74-106); Potassium 4.1 mmol/L (3.5-5.1); Sodium Level 137 mmol/L (136-145)
== END ==
LOC: OLS.WHLEAS 05:00
PROVIDERS: PCP Family Medicine; Visit Provider Family Medicine
DX: E11.42 Type 2 diabetes mellitus with diabetic polyneuropathy (principal); E11.22 Type 2 diabetes mellitus with diabetic chronic kidney disease; N18.30 Chronic kidney disease, stage 3 unspecified; M51.16 Intervertebral disc disorders with radiculopathy, lumbar region; M62.81 Muscle weakness (generalized); R26.2 Difficulty in walking, not elsewhere classified
CPT/HCPCS: 36415; 80048; 85027

== ENCOUNTER → 2022-07-01 | Outpatient (REF) | payer MEDICARE, MEDICAID, SELFPAY ==
[2022-07-01 09:52] LABS: Thyroid Stim Hormone (TSH) 1.82 uIU/mL (0.358-3.74)
[2022-07-01 10:18] LABS: Hemoglobin A1c 7.8 % (3.8-5.6)
== END ==
LOC: OLS.WHLEAS 05:00
PROVIDERS: PCP Family Medicine; Visit Provider Family Medicine
DX: E11.42 Type 2 diabetes mellitus with diabetic polyneuropathy (principal); M51.16 Intervertebral disc disorders with radiculopathy, lumbar region; M62.81 Muscle weakness (generalized); R26.2 Difficulty in walking, not elsewhere classified
CPT/HCPCS: 36415; 83036; 84443

== ENCOUNTER → 2022-07-02 | Outpatient (CLI) | payer MEDICARE, MEDICAID, SELFPAY ==
--- NOTE | 2022-07-02 15:06 | ECHOD_ITS ---
Reason For Study: DYSPNEA/SOB Procedure This was a 2D Doppler, Color Flow transthoracic echocardiogram. Exam performed in department. Left Ventricle Normal LV size. Mild concentric left ventricular hypertrophy. Left ventricular systolic function is normal. The estimated ejection fraction is 65 %. No regional wall motion abnormalities noted. Right Ventricle Normal RV size. Normal systolic function. Atria Normal left atrium. Mitral Valve Normal mitral valve. Tricuspid Valve Normal tricuspid valve. Aortic Valve Trisinus/trileaflet aortic valve. Pulmonic Valve Normal pulmonic valve. Great Vessels Normal aortic root. The pulmonary artery is normal size. Normal inferior vena cava. Pericardium/Pleural No pericardial effusion. MMode/2D Measurements & Calculations LVIDd: 4.2 cm IVSd: 1.3 cm Ao root diam: 2.9 cm LVIDs: 2.0 cm LVPWd: 1.2 cm RVDd: 2.5 cm FS: 52.9 % LAV(MOD-bp): 49.1 ml LA A4 area: 16.2 cm2 LA dimension(2D): 3.7 cm LAV(MOD-bp) Indexed: 27.7 ml/m2 LAV(MOD-sp2): 47.8 ml LAV(MOD-sp4): 45.9 ml RA A4 area: 12.6 cm2 Time Measurements MV dec time: 0.24 sec Doppler Measurements & Calculations MV E max ignacio: 59.1 cm/sec Lat Peak E' Ignacio: 5.0 cm/sec Med Peak E' Ignacio: 4.9 cm/sec MV A max ignacio: 84.4 cm/sec E/E' lat: 11.9 E/E' med: 12.1 MV E/A: 0.70 MV dec slope: 258.9 cm/sec2 Ao V2 max: 91.8 cm/sec LV V1 max: 82.5 cm/sec Ao max P.4 mmHg LV V1 max P.7 mmHg PA V2 max: 75.6 cm/sec ECHO/Echo Complete Interpretation Summary Normal LV size. Left ventricular systolic function is normal. The estimated ejection fraction is 65 %. Mild concentric left ventricular hypertrophy. Structurally normal valves. Ordering Physician: Miriam Cameron Referring Physician: Ganesh Garcia Performed By: Amanda Bach, VELMA, RVT
== END | disposition home or self-care (01) ==
LOC: CVS 15:06
PROVIDERS: PCP Family Medicine; Referring Provider Nurse Practitioner Gerontology; Visit Provider Nurse Practitioner Gerontology
DX: R06.00 Dyspnea, unspecified (principal)
CPT/HCPCS: 93306

== ENCOUNTER → 2022-07-03 | Outpatient (REF) | payer MEDICARE, SELFPAY ==
[2022-07-03 08:58] LABS: Thyroid Stim Hormone (TSH) 1.98 uIU/mL (0.358-3.74)
== END ==
LOC: OLS.WHLEAS 05:00
PROVIDERS: PCP Family Medicine; Visit Provider Family Medicine
DX: E03.9 Hypothyroidism, unspecified (principal); E11.42 Type 2 diabetes mellitus with diabetic polyneuropathy; M51.16 Intervertebral disc disorders with radiculopathy, lumbar region; M62.81 Muscle weakness (generalized); R26.2 Difficulty in walking, not elsewhere classified
CPT/HCPCS: 36415; 84443

== ENCOUNTER → 2022-07-07 | Outpatient (REF) | payer MEDICARE, MEDICAID, SELFPAY ==
[2022-07-07 09:04] LABS: Hematocrit 34.7 % (37-47); Hemoglobin 11.1 g/dL (12.0-15.0); Mean Corpuscular Hgb 28.6 pg (27.0-32.0); Mean Corpuscular Volume 89.4 fL (81-99); Mean Platelet Vol. 9.9 fl (6.2-12.0); Platelet Count 310 K/mm3 (150-450); RBC Distribution Width CV 13.5 % (11.6-14.6); RBC Distribution Width SD 44.2 fl (35.1-43.9); Red Blood Count 3.88 M/mm3 (4.2-5.4); White Blood Count 7.8 K/mm3 (4.4-11.0)
[2022-07-07 09:24] LABS: Anion Gap 9 (5-15); BUN 20 mg/dL (7-18); BUN/Creat Ratio 18.7 RATIO (10-20); Chloride 101 mmol/L (98-107); Creatinine, Serum 1.07 mg/dL (0.55-1.02); EST Glomerular Filtration Rate 56 mL/min (>60); Est Glom Filt Rate - Afr Amer 68 mL/min (>60); Glucose 240 mg/dL (74-106); Potassium 3.9 mmol/L (3.5-5.1); Sodium Level 136 mmol/L (136-145)
== END ==
LOC: OLS.WHLEAS 05:00
PROVIDERS: PCP Family Medicine; Visit Provider Family Medicine
DX: E11.22 Type 2 diabetes mellitus with diabetic chronic kidney disease (principal); E11.42 Type 2 diabetes mellitus with diabetic polyneuropathy; N18.31 Chronic kidney disease, stage 3a; M51.16 Intervertebral disc disorders with radiculopathy, lumbar region; M62.81 Muscle weakness (generalized); R26.2 Difficulty in walking, not elsewhere classified
CPT/HCPCS: 36415; 80048; 85027

== ENCOUNTER → 2022-07-13 | Outpatient (REF) | payer MEDICARE, MEDICAID, SELFPAY ==
[2022-07-13 09:37] LABS: Mucous, Urine 0 SEEN /hpf (<or=2+)
[2022-07-13 09:45] LABS: Color, Urine Yellow (Yellow); Glucose, Dipstick 50 mg/dl (Normal); Ketone-Dipstick Negative (Negative); Leukocyte Esterase-Dipstick 500 /ul (Negative); Nitrite-Dipstick Negative (Negative); Occult Blood-Urine 10 /ul (Negative); Protein-Dipstick Negative (Negative); Urine Bilirubin Dipstick Negative (Negative); Urine Clarity Sl. Cloudy (Clear); Urine Urobilinogen Normal (Normal)
[2022-07-13 10:00] LABS: Bacteria 2+ /hpf (None Seen); Red Blood Cells-Urine 0-5 SEEN /hpf (0-5); Squamous Epithelial Cells - UA 0-5 SEEN /hpf (5-10); White Blood Cells 25-50 SEEN /hpf (0-5)
== END ==
LOC: OLS.WHLEAS 06:00
PROVIDERS: PCP Family Medicine; Visit Provider Family Medicine
DX: N39.0 Urinary tract infection, site not specified (principal); M51.16 Intervertebral disc disorders with radiculopathy, lumbar region; E11.42 Type 2 diabetes mellitus with diabetic polyneuropathy; M62.81 Muscle weakness (generalized); R26.2 Difficulty in walking, not elsewhere classified
CPT/HCPCS: 81001; 87086; 87088

== ENCOUNTER → 2022-07-20 | Outpatient (REF) | payer MEDICARE, MEDICAID, SELFPAY ==
[2022-07-20 09:27] LABS: Cholesterol 96 mg/dL (200); High Density Lipoprotein 17 mg/dL; Triglycerides 361 mg/dL; Very Low Density Lipoprotein 72 mg/dL (5-40)
[2022-07-21 05:19] LABS: Hematocrit 34.3 % (37-47); Hemoglobin 10.6 g/dL (12.0-15.0); Mean Corp Hgb Conc 30.9 g/dL (32-36); Mean Corpuscular Hgb 28.1 pg (27.0-32.0); Platelet Count 274 K/mm3 (150-450); RBC Distribution Width CV 13.5 % (11.6-14.6); RBC Distribution Width SD 44.6 fl (35.1-43.9); Red Blood Count 3.77 M/mm3 (4.2-5.4); White Blood Count 7.6 K/mm3 (4.4-11.0)
[2022-07-21 05:39] LABS: Anion Gap 9 (5-15); BUN 19 mg/dL (7-18); BUN/Creat Ratio 18.3 RATIO (10-20); Calcium,Total 8.7 mg/dL (8.5-10.1); Chloride 100 mmol/L (98-107); Creatinine, Serum 1.04 mg/dL (0.55-1.02); EST Glomerular Filtration Rate 58 mL/min (>60); Est Glom Filt Rate - Afr Amer 70 mL/min (>60); Glucose 263 mg/dL (74-106); Potassium 4.3 mmol/L (3.5-5.1); Sodium Level 136 mmol/L (136-145)
== END ==
LOC: OLS.WHLEAS 05:00
PROVIDERS: PCP Family Medicine; Visit Provider Family Medicine
DX: M51.16 Intervertebral disc disorders with radiculopathy, lumbar region (principal); E11.42 Type 2 diabetes mellitus with diabetic polyneuropathy; M62.81 Muscle weakness (generalized); R26.2 Difficulty in walking, not elsewhere classified; R48.8 Other symbolic dysfunctions
CPT/HCPCS: 36415; 80048; 80061; 85027

== ENCOUNTER → 2022-08-04 | Outpatient (REF) | payer MEDICARE, MEDICAID, SELFPAY ==
[2022-08-04 09:45] LABS: Hematocrit 34.1 % (37-47); Hemoglobin 10.8 g/dL (12.0-15.0); Mean Corp Hgb Conc 31.7 g/dL (32-36); Mean Corpuscular Hgb 27.8 pg (27.0-32.0); Mean Corpuscular Volume 87.9 fL (81-99); Mean Platelet Vol. 9.9 fl (6.2-12.0); Platelet Count 319 K/mm3 (150-450); RBC Distribution Width CV 14.1 % (11.6-14.6); RBC Distribution Width SD 44.9 fl (35.1-43.9); Red Blood Count 3.88 M/mm3 (4.2-5.4); White Blood Count 6.8 K/mm3 (4.4-11.0)
[2022-08-04 09:57] LABS: Anion Gap 7 (5-15); BUN 19 mg/dL (7-18); BUN/Creat Ratio 19.1 RATIO (10-20); Calcium,Total 8.9 mg/dL (8.5-10.1); Chloride 102 mmol/L (98-107); Creatinine, Serum 0.99 mg/dL (0.55-1.02); EST Glomerular Filtration Rate 61 mL/min (>60); Est Glom Filt Rate - Afr Amer 74 mL/min (>60); Glucose 215 mg/dL (74-106); Potassium 4.1 mmol/L (3.5-5.1); Sodium Level 137 mmol/L (136-145)
== END ==
LOC: OLS.WHLEAS 05:00
PROVIDERS: PCP Family Medicine; Visit Provider Family Medicine
DX: N18.31 Chronic kidney disease, stage 3a (principal); E11.42 Type 2 diabetes mellitus with diabetic polyneuropathy; E11.22 Type 2 diabetes mellitus with diabetic chronic kidney disease; M51.16 Intervertebral disc disorders with radiculopathy, lumbar region; M62.81 Muscle weakness (generalized); R26.2 Difficulty in walking, not elsewhere classified
CPT/HCPCS: 36415; 80048; 85027

== ENCOUNTER → 2022-08-18 | Outpatient (REF) | payer MEDICARE, MEDICAID, SELFPAY ==
[2022-08-18 08:28] LABS: Hematocrit 33.6 % (37-47); Mean Corp Hgb Conc 32.7 g/dL (32-36); Mean Corpuscular Hgb 28.6 pg (27.0-32.0); Mean Corpuscular Volume 87.3 fL (81-99); Mean Platelet Vol. 9.6 fl (6.2-12.0); Platelet Count 310 K/mm3 (150-450); RBC Distribution Width CV 14.1 % (11.6-14.6); Red Blood Count 3.85 M/mm3 (4.2-5.4); White Blood Count 7.1 K/mm3 (4.4-11.0)
[2022-08-18 09:18] LABS: Anion Gap 5 (5-15); BUN 24 mg/dL (7-18); BUN/Creat Ratio 21.4 RATIO (10-20); Calcium,Total 9.3 mg/dL (8.5-10.1); Chloride 103 mmol/L (98-107); Creatinine, Serum 1.12 mg/dL (0.55-1.02); EST Glomerular Filtration Rate 53 mL/min (>60); Est Glom Filt Rate - Afr Amer 64 mL/min (>60); Glucose 158 mg/dL (74-106); Potassium 4.2 mmol/L (3.5-5.1); Sodium Level 137 mmol/L (136-145)
== END ==
LOC: OLS.WHLEAS 05:00
PROVIDERS: PCP Family Medicine; Visit Provider Family Medicine
DX: N18.31 Chronic kidney disease, stage 3a (principal); E11.42 Type 2 diabetes mellitus with diabetic polyneuropathy; E11.22 Type 2 diabetes mellitus with diabetic chronic kidney disease; M51.16 Intervertebral disc disorders with radiculopathy, lumbar region; M62.81 Muscle weakness (generalized); R26.2 Difficulty in walking, not elsewhere classified
CPT/HCPCS: 36415; 80048; 85027

== ENCOUNTER 2022-08-24 03:17 | Emergency (ER) | payer MEDICARE, MEDICAID, SELFPAY ==
[2022-08-24 03:19] VITALS: BP 94/57; PULSE 82; RESP 11; TEMP 36.3; O2SAT 95; BMI 33.4
[2022-08-24 03:29] VITALS: O2SAT 94
--- NOTE | 2022-08-24 03:29 | RAD_ITS ---
STUDY: X-RAY CHEST REASON FOR EXAM: Female, 57 years old patient with chest pain. TECHNIQUE: Single AP portable view of the chest. COMPARISON: Chest radiograph dated 05/03/2022. FINDINGS: Cardiac monitoring leads are present. The lungs are underexpanded. There is right basilar subsegmental atelectasis. There may also be left basilar subsegmental atelectasis. There is no obvious airspace consolidation. There is no demonstrated pleural abnormality. Normal size heart. Normal mediastinum and adryan. There is prominence of the pulmonary hilar arteries without peripheral pulmonary vascular congestion. There is atherosclerotic calcification of the aortic arch with tortuosity. Normal visualized thoracic spine. Normal visualized ribs, clavicles, and shoulders. There is no demonstrated abnormality of the visualized soft tissue structures of the upper abdomen. RAD/Chest 1 View (Portable) IMPRESSION: Bilateral basilar subsegmental atelectasis. Electronically Signed: Keri Garcia MD at 4:13 EDT ,
--- NOTE | 2022-08-24 03:30 | EKG12_ITS ---
Test Reason : CP Blood Pressure : / mmHG Vent. Rate : 081 BPM Atrial Rate : 081 BPM P-R Int : 166 ms QRS Dur : 078 ms QT Int : 420 ms P-R-T Axes : 028 -36 003 degrees QTc Int : 487 ms Normal sinus rhythm Left axis deviation Inferior infarct , age undetermined, cannot be excluded Anterior infarct , age undetermined, cannot be excluded Abnormal ECG Confirmed by PETERSON SANTANA, JAEL ([id number]), state editor MILE MCMAHAN ([id number]) on 08/25/2022 1:12:11 PM Referred By: ROSMERY Confirmed By:JAEL WINKLER MD
--- NOTE | 2022-08-24 03:31 | ED.VIS.CHEST ---
HPI History of Present Illness Chief Complaint: Chest Pain Detail of Chief Complaint: Chest pain since 11 PM last evening Informant: patient Onset/Context/Timing Current Severity: 06/03 Narrative Narrative: Patient presents with chest discomfort that started around 11 PM last evening. She rates it an 8 out of 10 and describes it as pressure and heaviness. She said some mild nausea and feels somewhat short of breath. She has had similar pains in the past. She has no heart history. She had a heart catheterization in April 2022 that showed no significant blockages and no intervention was undertaken. Patient also had a CTA of the chest in April that was negative for PE or dissection. Patient has been given aspirin today and Tylenol without resolution in her pain. She denies recent illness. Patient presents from shelter. [facility] Medical History Carpal tunnel syndrome Chronic back pain Chronic renal failure, stage 3a CKD (chronic kidney disease) stage 3, GFR 30-59 ml/min Contusion of great toe, right Contusion of knee Depression Depressive disorder Diabetes Difficulty in walking, not elsewhere classified Elevated troponin Essential hypertension Fatigue Former smoker History of left heart catheterization (LHC) (~05/21/22) HTN (hypertension) Hyperlipidemia Hypokalemia Hypothyroidism Infection of tooth Intervertebral disc disorder with radiculopathy of lumbar region Kidney disease Kidney stones Migraines Normochromic normocytic anemia Obesity (BMI 35.0-39.9 without comorbidity) Opiate abuse, continuous Orthostatic hypotension Pure hypercholesterolemia Renal insufficiency Stomach ulcer Thyroid disease Type II diabetes mellitus, uncontrolled Home Medications rizatriptan 10 mg tablet 10 mg PO PRN PRN Migraine Symptoms 12/27/17 [History Last Taken Unknown] quetiapine 100 mg tablet (Seroquel) 100 mg PO QHS sleep 06/20/21 [History Last Taken 04/23/22] pen needle,diabetic, disp unit 29 gauge x 1/2, remover and disposal unit #100 ea 06/23/21 [Rx Last Taken Unknown] gabapentin 300 mg capsule 300 mg PO TIDCM #60 caps 03/24/22 [Rx Last Taken 04/24/22] insulin lispro 100 unit/mL subcutaneous pen (Humalog KwikPen (U-100) Insulin) 10 unit (0.1 mL) subcut TIDAC #0 mL 03/24/22 [Rx Last Taken 04/24/22] acetaminophen 500 mg tablet 1,000 mg PO TID PRN pain #0 tabs 03/27/22 [Rx Last Taken 04/23/22 16:40] polyethylene glycol 3350 17 gram oral powder packet 17 g PO DAILY PRN PRN constipation #0 ea 03/27/22 [Rx Last Taken Unknown] sennosides 8.6 mg-docusate sodium 50 mg tablet (Stool Softener-Stimulant Laxative) 2 tab PO BID #0 tabs 03/27/22 [Rx Last Taken Unknown] aluminum-mag hydroxide-simethicone 400 mg-400 mg-40 mg/5 mL oral susp (Mylanta Maximum Strength) 15 ml PO Q4H PRN Stomach Upset 04/24/22 [History Last Taken 04/24/22] baclofen 10 mg tablet 10 mg PO Q6H PRN Pain 04/24/22 [History Last Taken 04/24/22 05:18] insulin lispro 100 unit/mL subcutaneous pen (Humalog KwikPen (U-100) Insulin) See Protocol subcut ACHS 04/24/22 [History Last Taken 04/24/22] aspirin 81 mg tablet,delayed release (Constance Low Dose Aspirin) 81 mg PO DAILY #30 tabs 05/21/22 [Rx Last Taken Unknown] atorvastatin 40 mg tablet 40 mg PO QHS #30 tabs 05/21/22 [Rx Last Taken Unknown] metoprolol succinate 25 mg tablet,extended release 24 hr 25 mg PO DAILY #30 tabs 05/21/22 [Rx Last Taken Unknown] alprazolam 0.5 mg tablet 0.5 mg PO BID mood 06/12/22 [History Last Taken Unknown] dextrose 40 % oral gel (Glutose-15) 15 g PO Q15M PRN 06/12/22 [History Last Taken Unknown] insulin glargine-yfgn 100 unit/mL (3 mL) subcutaneous pen 40 unit subcut QAM 06/12/22 [History Last Taken Unknown] levothyroxine 175 mcg capsule 175 mcg PO DAILY 06/12/22 [History Last Taken Unknown] lidocaine 4 % topical patch 2 patch topical DAILY Back Pain 06/12/22 [History Last Taken Unknown] loperamide 2 mg capsule 2 mg PO Q6H PRN 06/12/22 [History Last Taken Unknown] midodrine 5 mg tablet 10 mg PO BID 06/12/22 [History Last Taken Unknown] pantoprazole 40 mg tablet,delayed release 40 mg PO DAILY 06/12/22 [History Last Taken Unknown] ranolazine 500 mg tablet,extended release,12 hr 500 mg PO BID #60 tabs 06/12/22 [Rx Last Taken Unknown] Allergy/AdvReac Type Severity Reaction Status Date / Time celecoxib [From Celebrex] Allergy Itching Verified 08/24/22 03:25 ciprofloxacin [From Cipro] Allergy Swelling Verified 08/24/22 03:25 ciprofloxacin HCl Allergy Swelling Verified 08/24/22 03:25 [From Cipro] codeine Allergy Hives Verified 08/24/22 03:25 ibuprofen Allergy Hives Verified 08/24/22 03:25 naproxen Allergy Hives Verified 08/24/22 03:25 Penicillins Allergy Hives Verified 08/24/22 03:25 tramadol HCl [From Ultram] Allergy Hives Verified 08/24/22 03:25 ketorolac [From Toradol] AdvReac Swelling Verified 08/24/22 03:25 Family History Other CVA (cerebral vascular accident) Cancer Diabetes Myocardial infarction Surgical History H/O: hysterectomy Hx of section S/P trigger finger release Social History household members: other details: currently living in a NH for therapy for chronic back pain housing: shelter Smoking Status: Former smoker Tobacco: How many years used: 46 how long ago did patient quit smoking: She quit smoking in August or September of 2021. She started smoking at 14 alcohol intake: never substance use type: other details: has a hx of chronic opioid use ROS ROS ED Review of Systems ROS Unobtainable: other Constitutional Constitutional ED: Reports lethargy; Denies chills, fever(s), sweats or weight loss Eyes Eyes: Denies blurry vision, change in vision or diplopia ENT ENT ED: Denies rhinorrhea or sore throat Cardiovascular Cardiovascular: Reports chest pain; Denies orthopnea or racing heartbeat Respiratory/Chest Respiratory/Chest: Reports dyspnea; Denies cough, dyspnea on exertion, orthopnea or sputum Gastrointestinal Gastrointestinal: Denies abdominal pain, diarrhea, nausea or vomiting Genitourinary Genitourinary ED: Denies dysuria, hematuria or urinary frequency Musculoskeletal Musculoskeletal: Denies arthralgias, back pain, myalgias or neck pain Integumentary Denies abscess, Abrasions or rash Neurologic Neurologic: Denies headache(s) or weakness Psychiatric Psychiatric: Denies anxiety, depression or suicidal thoughts Endocrine Endocrinology: Denies polydipsia, polyphagia or polyuria Hematologic/Lymphatic Hematologic/Lymphatic: Denies easy bleeding, easy bruising or lymphadenopathy Allergic/Immunologic Allergic/Immunologic ED: Denies mouth swelling, tongue swelling or urticaria EXAM Physical Exam Const Vital Signs: 08/24/22 03:19 08/24/22 03:26 08/24/22 03:29 Temperature 97.3 F L Temperature Source Temporal Pulse Rate 82 Respiratory Rate 11 L Respiratory Effort Non-Labored Blood Pressure 94/57 L Blood Pressure Mean 69 Pulse Ox 95 94 Oxygen Delivery Method Room Air Room Air Oxygen Flow Rate (L/min) 08/24/22 04:18 08/24/22 05:17 Temperature Temperature Source Pulse Rate 69 74 Respiratory Rate 14 18 Respiratory Effort Blood Pressure 81/48 L 110/47 L Blood Pressure Mean 59 68 Pulse Ox 94 95 Oxygen Delivery Method Nasal Cannula Nasal Cannula Oxygen Flow Rate (L/min) 1 1 Positive well nourished and well developed General Appearance ED: well developed and NAD HEENT Reports TM's clear and moist mucous membranes normocephalic and atraumatic; Negative for trauma or tenderness Tympanic Membrane ED: Yes TM's clear Eyes PERRL and EOMs intact bilaterally General Eye ED: Negative for pale conjunctiva or scleral icterus Neck no lymphadenopathy, supple and no JVD General: Negative for tenderness Chest Wall inspection of chest normal and palpation of chest normal Chest: Negative for tenderness Resp normal respiratory effort and clear to auscultation bilaterally Effort and Inspection: Negative for respiratory distress or pain with movement Auscultation: Negative for rhonchi, wheezes or diminished lung sounds Cardio regular rate, regular rhythm, S1 normal heart sound, S2 normal heart sound and no murmurs Peripheral Pulses: pulses 2+ throughout GI normal to inspection, nondistended, normoactive bowel sounds, soft to palpation, non-tender, non-distended and no masses Back/Spine no CVA tenderness and no thoracic nor lumbar tenderness Extremity normal to inspection General Extremety ED: Negative for edema General Extremity: Negative for edema Neuro oriented x3, CN's II-XII intact bilaterally, no sensory deficits noted and gait normal Sensorium / Orientation: awake, alert, oriented to person, oriented to place and oriented to time Motor Exam: strength 5/5 throughout and strength abnormal Psych mental status grossly normal Skin no rashes or lesions noted and no wounds Heart Score History: Moderately Suspicious ECG: Nonspecific Repolarization Age: >45 - <65 years Risk Factors: >/= 3 Risk Factors or History of CAD Troponin: </= Normal Limit Score: 5 MDM MDM MDM Narrative Medical decision making narrative: IV line established on arrival. Patient had already received aspirin therefore she was given morphine 4 mg IV and Zofran 4 mg IV. Troponin was normal. EKG obtained showed sinus rhythm with a rate of 81 bpm with old inferior and old anterior infarcts which is unchanged from prior. D-dimer was elevated therefore CT of the chest was obtained which was negative for PE or dissection. Patient has some atelectasis and some bronchiectasis however she is had no pneumonia signs or symptoms. Patient did feel improved after treatment. Given that she had a heart catheterization in April of this year I will feel any further testing is indicated. I do not feel she is having an acute coronary syndrome. Lab Data Attestation: I reviewed the patient's lab results. Labs: Laboratory Results - last 24 hr 08/24/22 08/24/22 08/24/22 03:25 03:25 03:25 WBC 8.6 RBC 4.30 Hgb 12.0 Hct 35.9 L MCV 83.5 MCH 27.9 MCHC 33.4 RDW Std Deviation 42.8 RDW Coeff of Anisa 14.2 Plt Count 344 MPV 9.5 Immature Gran % (Auto) 0.200 Neut % (Auto) 53.6 Lymph % (Auto) 39.0 [place] % (Auto) 5.0 Eos % (Auto) 1.6 Baso % (Auto) 0.6 Absolute Neuts (auto) 4.6 Absolute Lymphs (auto) 3.37 Nucleated RBC % 0 D-Dimer Quant (PE/DVT) 0.67 H* Sodium 134 L Potassium 4.4 Chloride 97 L Carbon Dioxide 28.0 Anion Gap 9 BUN 24 H Creatinine 1.43 H Estim Creat Clear Calc 30.43 Est GFR (MDRD) Af Amer 48 L Est GFR (MDRD) Non-Af 40 L BUN/Creatinine Ratio 16.8 Glucose 235 H Calcium 8.8 Total Bilirubin 0.40 Direct Bilirubin 0.13 AST 22 ALT 23 Alkaline Phosphatase 61 Troponin I High Sens 9 Total Protein 7.0 Albumin 2.9 L Globulin 4.1 Lipase 92 Radiography Diagnostic Testing: Clinical Impression(s) from Imaging Studies Chest X-Ray 08/24/22 03:29 IMPRESSION: Bilateral basilar subsegmental atelectasis. Electronically Signed: Keri Garcia MD at 4:13 EDT Reading Location ID and State: [employer] / [place] , Service support , Chest CTA 08/24/22 04:36 IMPRESSION: 1. No CTA demonstrated pulmonary embolism or arterial dissection. 2. There is bilateral bronchiectasis. There is bilateral basilar atelectasis and also patchy airspace disease and pneumonia. Electronically Signed: Keri Garcia MD at 5:30 EDT Reading Location ID and State: [employer] / [place] , Service support , 1 view chest x-ray obtained interpreted by myself as increased markings both lower lobes. Radiology was in agreement felt there was bilateral bibasilar subsegmental atelectasis. EKG Initial EKG: Attestation: I personally reviewed and interpreted this EKG as follows: Comments: Sinus rhythm with a rate of 81 bpm with old anterior infarct and old inferior infarct. Prior EKG tracings: available for review Prior: Unchanged Discharge Plan Triage Chief Complaint: Chest Pain ED Provider: Olena Govea Dx/Rx/DC Orders Clinical Impression: Chest pain of unknown etiology Instructions: ED Chest Pain, Uncertain Cause Prescriptions: No Action insulin glargine-yfgn 100 unit/mL (3 mL) insulin pen 40 unit subcut QAM levothyroxine 175 mcg capsule 175 mcg PO DAILY pantoprazole 40 mg tablet,delayed release (DR/EC) 40 mg PO DAILY loperamide 2 mg capsule 2 mg PO Q6H PRN dextrose [Glutose-15] 40 % gel 15 g PO Q15M PRN Rx Instructions: until symptoms of low blood sugar are controlled ranolazine 500 mg tablet extended release 12 hr 500 mg PO BID Qty: 60 11RF rizatriptan 10 tablet 10 mg PO PRN PRN (Reason: Migraine Symptoms) Label Comments: quetiapine [Seroquel] 100 mg Tablet 100 mg PO QHS (DME) pen needle,diabetic, disp unit 29 gauge x 1/2 needle See Rx Instructions .ROUTE .MEDSUPPLY Qty: 100 0RF Rx Instructions: As directed insulin lispro [Humalog KwikPen Insulin] 100 unit/mL Insulin Pen 10 unit subcut TIDAC Qty: 0 0RF gabapentin 300 mg Capsule 300 mg PO TIDCM Qty: 60 0RF acetaminophen 500 mg Tablet 1,000 mg PO TID PRN (Reason: pain) Qty: 0 0RF polyethylene glycol 3350 17 gram Powder In Packet 17 g PO DAILY PRN PRN (Reason: constipation) Qty: 0 0RF sennosides-docusate sodium [Stool Softener-Stimulant Laxat] 8.6-50 mg Tablet 2 tab PO BID Qty: 0 0RF alprazolam 0.5 mg tablet 0.5 mg PO BID baclofen 10 mg Tablet 10 mg PO Q6H PRN (Reason: Pain) alum-mag hydroxide-simeth [Mylanta Maximum Strength] 400-400-40 mg/5 mL Suspension 15 ml PO Q4H PRN (Reason: Stomach Upset) insulin lispro [Humalog KwikPen Insulin] 100 unit/mL insulin pen See Protocol subcut ACHS Protocol: 6. Sliding Scale Insulin Custom Condition: mg/dl range Dose/Route: Number of Units Condition: 150-209 Dose/Route: 3 Condition: 210-259 Dose/Route: 6 Condition: 260-324 Dose/Route: 9 Condition: 325-374 Dose/Route: 12 Condition: 375-409 Dose/Route: 14 Condition: 410-449 Dose/Route: 16 Condition: >449 Instruction: CALL Protocol Text: Custom Sliding Scale lidocaine 4 % adhesive patch,medicated 2 patch TOPICAL DAILY Label Comments: PER USP MAR PT GETS 2 PATCHES APPLIED TO BACK IN THE AM AND REMOVED AFTER 12 HOURS IN THE PM. metoprolol succinate 25 mg Tablet Extended Release 24 Hr 25 mg PO DAILY Qty: 30 2RF atorvastatin 40 mg tablet 40 mg PO QHS Qty: 30 2RF aspirin [Constance Low Dose Aspirin] 81 mg tablet,delayed release (DR/EC) 81 mg PO DAILY Qty: 30 3RF midodrine 5 mg tablet 10 mg PO BID Rx Instructions: do not give last dose of day after 6PM or within 4 hrs of bedtime Primary Care Provider: Ganesh Garcia Referrals: Ganesh Garcia MD [Primary Care Provider] - 3-5 Days Disposition Disposition: Home, Self Care
[2022-08-24] MEDS: Ondansetron 4 MG/2 ML Vial IV (03:48)
[2022-08-24] MEDS: Morphine 4 MG/ML Syringe IV (03:49)
[2022-08-24] MEDS: 0.9% Normal Saline 1,000 ML 150 ML IV (03:51)
[2022-08-24 04:05] LABS: Absolute Lymphocyte Count 3.37 X10^3/uL (0.83-4.51); Absolute Neutrophil Count 4.6 X10^3/uL (2.0-7.7); Basophil# 0.05 X10^3/uL; Basophil% 0.6 % (0-1); Eosinophil# 0.14 X10^3/uL; Eosinophils% 1.6 % (0-5); Hematocrit 35.9 % (37-47); Lymphocyte # 3.37 X10^3/ul (0.83-4.51); Mean Corp Hgb Conc 33.4 g/dL (32-36); Mean Corpuscular Hgb 27.9 pg (27.0-32.0); Mean Corpuscular Volume 83.5 fL (81-99); Mean Platelet Vol. 9.5 fl (6.2-12.0); Monocyte# 0.43 X10^3/uL; NRBC Flagged by Analyzer 0 % (0-5); Neutrophil # 4.62 X10^3/uL (2.7-7.7); Neutrophil % 53.6 % (47-70); Platelet Count 344 K/mm3 (150-450); RBC Distribution Width CV 14.2 % (11.6-14.6); RBC Distribution Width SD 42.8 fl (35.1-43.9); White Blood Count 8.6 K/mm3 (4.4-11.0)
[2022-08-24 04:11] LABS: AST(SGOT) 22 U/L (15-37); Alanine Aminotransfer ALT/SGPT 23 U/L (13-56); Albumin, Serum 2.9 g/dL (3.2-5.0); Alkaline Phosphatase 61 U/L (45-117); Anion Gap 9 (5-15); BUN 24 mg/dL (7-18); BUN/Creat Ratio 16.8 RATIO (10-20); Bilirubin, Direct 0.13 mg/dL (0.00-0.30); Calcium,Total 8.8 mg/dL (8.5-10.1); Chloride 97 mmol/L (98-107); Creatinine, Serum 1.43 mg/dL (0.55-1.02); EST Glomerular Filtration Rate 40 mL/min (>60); Est Glom Filt Rate - Afr Amer 48 mL/min (>60); Estimated Creatinine Clearance 30.43 ml/min; Globulin 4.1 g/dL (2.2-4.2); Glucose 235 mg/dL (74-106); Lipase 92 U/L (73-393); Potassium 4.4 mmol/L (3.5-5.1); Sodium Level 134 mmol/L (136-145); Troponin-I HS (w/2H Reflex) 9 pg/mL (3.0-54.0)
[2022-08-24 04:16] LABS: D-Dimer Quantitative (DVT/PE) 0.67 FEU/ug/m (0.27-0.49)
[2022-08-24 04:18] VITALS: BP 81/48; PULSE 69; RESP 14; O2SAT 94
--- NOTE | 2022-08-24 04:36 | CT_ITS ---
STUDY: CTA CHEST REASON FOR EXAM: Female, 57 years old patient with chest pain. RADIATION DOSAGE (If Supplied By Facility): CTDIvol = ( 12.07 ) mGy, DLP = ( 436.66 ) mGycm TECHNIQUE: The examination was performed with the intravenous administration of 100 mL of Isovue-370. Post-processing of the angiographic images was performed, with multiplanar reformation and 3D reconstruction. Individualized dose optimization techniques were used for this CT. COMPARISON: CTA of the chest dated 05/21/2022. FINDINGS: Cardiac monitoring leads are present. Normal enhancement of the main pulmonary artery and right and left pulmonary arteries. Normal enhancement of the bilateral peripheral pulmonary arteries. There is no demonstrated pulmonary embolism. There is mild atherosclerotic calcification of the aortic arch with tortuosity. There is no demonstrated aortic dissection. There is a small pericardial effusion measuring approximately 1.9 cm in thickness. The heart is normal size. Normal mediastinum. Normal hilar regions. Normal visualized trachea and bronchi. The lungs are well expanded. There is right basilar airspace disease and atelectasis. Some bronchiectasis is present within both the lungs. There is left basilar dependent atelectasis. Normal pleura. Normal chest wall structures. There are degenerative changes of thoracic spine. Normal visualized upper abdomen. CT/CTA Chest W/WO Contrast IMPRESSION: 1. No CTA demonstrated pulmonary embolism or arterial dissection. 2. There is bilateral bronchiectasis. There is bilateral basilar atelectasis and also patchy airspace disease and pneumonia. Electronically Signed: Keri Garcia MD at 5:30 EDT ,
[2022-08-24 05:17] VITALS: BP 110/47; PULSE 74; RESP 18; O2SAT 95
[2022-08-24 05:40] LABS: Reflex Troponin-HS? (from REC) Y
[2022-08-24 06:11] VITALS: BP 95/46; PULSE 74; RESP 18; O2SAT 94
[2022-08-24 06:17] LABS: Troponin-I HS 10 pg/mL (3.0-54.0)
[2022-08-24 07:19] VITALS: BP 107/49; PULSE 65; RESP 18; O2SAT 93
== END 2022-08-24 08:59 | disposition home or self-care (01) ==
PROVIDERS: Emergency Provider Emergency Medicine; PCP Family Medicine; Visit Provider Emergency Medicine
DX: R07.9 Chest pain, unspecified (principal); E11.22 Type 2 diabetes mellitus with diabetic chronic kidney disease; J47.9 Bronchiectasis, uncomplicated; N18.31 Chronic kidney disease, stage 3a; J98.11 Atelectasis; I12.9 Hypertensive chronic kidney disease with stage 1 through stage 4 chronic kidney disease, or unspecified chronic kidney disease; M54.9 Dorsalgia, unspecified; E78.5 Hyperlipidemia, unspecified; E78.00 Pure hypercholesterolemia, unspecified; Z87.891 Personal history of nicotine dependence
CPT/HCPCS: 71045; 71275; 80048; 80076; 83690; 84484; 85025; 85379; 93005; 99285; J7030; Q9967; A4216; J2405

== ENCOUNTER → 2022-09-01 | Outpatient (REF) | payer MEDICARE, MEDICAID, SELFPAY ==
[2022-09-01 08:34] LABS: Hematocrit 33.3 % (37-47); Hemoglobin 10.9 g/dL (12.0-15.0); Mean Corp Hgb Conc 32.7 g/dL (32-36); Mean Corpuscular Hgb 27.7 pg (27.0-32.0); Mean Corpuscular Volume 84.7 fL (81-99); Mean Platelet Vol. 9.9 fl (6.2-12.0); Platelet Count 328 K/mm3 (150-450); RBC Distribution Width CV 13.9 % (11.6-14.6); RBC Distribution Width SD 42.9 fl (35.1-43.9); Red Blood Count 3.93 M/mm3 (4.2-5.4)
[2022-09-01 08:44] LABS: Anion Gap 7 (5-15); BUN 16 mg/dL (7-18); BUN/Creat Ratio 13.4 RATIO (10-20); Calcium,Total 9.1 mg/dL (8.5-10.1); Chloride 101 mmol/L (98-107); Creatinine, Serum 1.19 mg/dL (0.55-1.02); EST Glomerular Filtration Rate 49 mL/min (>60); Est Glom Filt Rate - Afr Amer 60 mL/min (>60); Glucose 255 mg/dL (74-106); Potassium 4.1 mmol/L (3.5-5.1); Sodium Level 135 mmol/L (136-145)
== END ==
LOC: OLS.WHLEAS 05:00
PROVIDERS: PCP Family Medicine; Visit Provider Family Medicine
DX: M51.16 Intervertebral disc disorders with radiculopathy, lumbar region (principal); E11.42 Type 2 diabetes mellitus with diabetic polyneuropathy; N18.31 Chronic kidney disease, stage 3a; M62.81 Muscle weakness (generalized); E11.22 Type 2 diabetes mellitus with diabetic chronic kidney disease
CPT/HCPCS: 36415; 80048; 85027

== ENCOUNTER → 2022-09-11 | Outpatient (REF) | payer MEDICARE, MEDICAID, SELFPAY ==
[2022-09-11 08:58] LABS: Hematocrit 32.3 % (37-47); Hemoglobin 10.5 g/dL (12.0-15.0); Mean Corp Hgb Conc 32.5 g/dL (32-36); Mean Corpuscular Hgb 27.7 pg (27.0-32.0); Mean Corpuscular Volume 85.2 fL (81-99); Mean Platelet Vol. 10.1 fl (6.2-12.0); Platelet Count 257 K/mm3 (150-450); RBC Distribution Width CV 13.7 % (11.6-14.6); Red Blood Count 3.79 M/mm3 (4.2-5.4); White Blood Count 7.5 K/mm3 (4.4-11.0)
[2022-09-11 09:11] LABS: Anion Gap 9 (5-15); BUN 26 mg/dL (7-18); BUN/Creat Ratio 23.6 RATIO (10-20); Calcium,Total 8.6 mg/dL (8.5-10.1); Chloride 100 mmol/L (98-107); EST Glomerular Filtration Rate 54 mL/min (>60); Est Glom Filt Rate - Afr Amer 65 mL/min (>60); Glucose 246 mg/dL (74-106); Potassium 4.3 mmol/L (3.5-5.1); Sodium Level 136 mmol/L (136-145)
[2022-09-11 09:19] LABS: BNP,B-Type NATRIURETIC PEPTIDE 18.5 pg/mL (0-100)
== END ==
LOC: OLS.WHLEAS 05:00
PROVIDERS: PCP Family Medicine; Visit Provider Family Medicine
DX: M51.36 Other intervertebral disc degeneration, lumbar region (principal); E11.42 Type 2 diabetes mellitus with diabetic polyneuropathy; M62.81 Muscle weakness (generalized); R26.2 Difficulty in walking, not elsewhere classified; R48.8 Other symbolic dysfunctions
CPT/HCPCS: 36415; 80048; 83880; 85027

== ENCOUNTER → 2022-09-15 | Outpatient (REF) | payer MEDICARE, SELFPAY ==
[2022-09-15 09:02] LABS: Anion Gap 9 (5-15); BUN 23 mg/dL (7-18); BUN/Creat Ratio 22.8 RATIO (10-20); Calcium,Total 8.6 mg/dL (8.5-10.1); Chloride 99 mmol/L (98-107); Creatinine, Serum 1.01 mg/dL (0.55-1.02); EST Glomerular Filtration Rate 60 mL/min (>60); Est Glom Filt Rate - Afr Amer 72 mL/min (>60); Glucose 258 mg/dL (74-106); Potassium 4.1 mmol/L (3.5-5.1); Sodium Level 134 mmol/L (136-145)
[2022-09-15 09:13] LABS: Hematocrit 31.5 % (37-47); Hemoglobin 10.6 g/dL (12.0-15.0); Mean Corp Hgb Conc 33.7 g/dL (32-36); Mean Corpuscular Hgb 28.6 pg (27.0-32.0); Mean Corpuscular Volume 84.9 fL (81-99); Mean Platelet Vol. 10.1 fl (6.2-12.0); Platelet Count 258 K/mm3 (150-450); RBC Distribution Width SD 43.3 fl (35.1-43.9); Red Blood Count 3.71 M/mm3 (4.2-5.4)
== END ==
LOC: OLS.WHLEAS 05:00
PROVIDERS: PCP Family Medicine; Visit Provider Family Medicine
DX: M51.16 Intervertebral disc disorders with radiculopathy, lumbar region (principal); E11.42 Type 2 diabetes mellitus with diabetic polyneuropathy; E11.22 Type 2 diabetes mellitus with diabetic chronic kidney disease; N18.31 Chronic kidney disease, stage 3a; M62.81 Muscle weakness (generalized); R26.2 Difficulty in walking, not elsewhere classified
CPT/HCPCS: 36415; 80048; 85027

== ENCOUNTER → 2022-09-29 | Outpatient (REF) | payer MEDICARE, SELFPAY ==
[2022-09-29 09:25] LABS: Hematocrit 35.3 % (37-47); Hemoglobin 11.5 g/dL (12.0-15.0); Mean Corp Hgb Conc 32.6 g/dL (32-36); Mean Corpuscular Volume 85.9 fL (81-99); Mean Platelet Vol. 10.2 fl (6.2-12.0); Platelet Count 289 K/mm3 (150-450); RBC Distribution Width CV 13.8 % (11.6-14.6); RBC Distribution Width SD 42.8 fl (35.1-43.9); Red Blood Count 4.11 M/mm3 (4.2-5.4); White Blood Count 6.8 K/mm3 (4.4-11.0)
[2022-09-29 09:38] LABS: Anion Gap 7 (5-15); BUN 25 mg/dL (7-18); BUN/Creat Ratio 21.9 RATIO (10-20); Chloride 98 mmol/L (98-107); Creatinine, Serum 1.14 mg/dL (0.55-1.02); EST Glomerular Filtration Rate 52 mL/min (>60); Est Glom Filt Rate - Afr Amer 63 mL/min (>60); Glucose 426 mg/dL (74-106); Potassium 4.1 mmol/L (3.5-5.1); Sodium Level 132 mmol/L (136-145)
== END ==
LOC: OLS.WHLEAS 05:00
PROVIDERS: PCP Family Medicine; Visit Provider Family Medicine
DX: M51.16 Intervertebral disc disorders with radiculopathy, lumbar region (principal); E11.42 Type 2 diabetes mellitus with diabetic polyneuropathy; E11.22 Type 2 diabetes mellitus with diabetic chronic kidney disease; N18.31 Chronic kidney disease, stage 3a; M62.81 Muscle weakness (generalized); R26.2 Difficulty in walking, not elsewhere classified
CPT/HCPCS: 36415; 80048; 85027

== ENCOUNTER 2022-10-09 01:28 | Emergency (ER) | payer MEDICARE, MEDICAID, SELFPAY ==
[2022-10-09 01:29] VITALS: PULSE 82; RESP 18; TEMP 37; O2SAT 97; BMI 34.3
--- NOTE | 2022-10-09 01:49 | CT_ITS ---
EXAM: CT ABDOMEN AND PELVIS WITH INTRAVENOUS CONTRAST CLINICAL INDICATION: RLQ pain TECHNIQUE: Helically acquired images were obtained of the abdomen and pelvis with intravenous contrast. This CT exam was performed using one or more of the following dose reduction techniques: automated exposure control, adjustment of the mA and/or kV according to patient size, and/or use of iterative reconstruction technique. This report was created using [employer] report generation technology. RADIATION DOSE: CTDIvol = 14.59 mGy, DLP = 1074.58 mGy-cm Contrast: IV 100mL Isovue-370 COMPARISON: January 13, 2022. FINDINGS: LOWER THORAX: Moderate calcifications of the left anterior descending coronary artery, mild calcification of left circumflex and right coronary artery. Normal heart size. Trace pericardial fluid. Trace pleural effusions. ABDOMEN: LIVER: Mildly elongated liver, 20.9 cm in length, it was 22.1 cm. GALLBLADDER AND BILE DUCTS: Cholecystectomy. Slightly prominent intrahepatic ducts, increased from prior exam, the common duct is 1.2 cm proximal to the pancreas, similar, no choledocholithiasis is evident. PANCREAS: Unremarkable. No focal cystic or solid mass. SPLEEN: A few calcified granulomas in the liver and one in the spleen again noted. ADRENALS: Unremarkable. No nodules. KIDNEYS AND URETERS: Unremarkable. Normal renal size and position. No hydronephrosis. STOMACH AND BOWEL: Moderate mixed density material in the stomach, mildly prominent fluid and gas in small bowel loops. Moderate fluid and gas right colon, and in the proximal half of the transverse colon. Moderate gas and stool in the distal transverse colon. Moderate stool in the descending colon and sigmoid and rectum. No significant diverticulosis or evidence of diverticulitis. No stomach or bowel distention. PELVIS: APPENDIX: Normal appendix is seen. BLADDER: Moderately distended urinary bladder, 16.6 cm. REPRODUCTIVE: Hysterectomy. ABDOMEN and PELVIS: INTRAPERITONEAL SPACE: Unremarkable. No ascites or other fluid collection. No free air. BONES/JOINTS: Similar posterior calcified bulging disc margin at L4-5. Mild canal narrowing. No suspicious lytic or blastic abnormality. SOFT TISSUES: Fat-containing umbilical hernia, wide neck, stable, no strangulation. VASCULATURE: Circumferential marked calcification of the proximal renal arteries with high-grade appearing right renal artery stenosis with mild post stenotic dilatation and at least moderate left renal artery stenosis. The kidneys are symmetric in size and enhancement. Calcifications of the origins of the celiac axis and SMA. Atherosclerotic calcifications of the aortoiliac vessels, no aneurysm or dissection. LYMPH NODES: Unremarkable. No enlarged lymph nodes. CT/Abdomen/Pelvis W IV Cont ONLY IMPRESSION: 1. Prominent colon contents, fluid and air in the proximal half of the colon and moderate stool in the distal half of the colon and rectum. 2. No evidence of appendicitis. 3. Mildly prominent small bowel gas. No evidence of small bowel obstruction. 4. Advanced atherosclerotic changes with high-grade right renal artery stenosis, stable. Similar symmetric renal size and enhancement. 5. Moderately distended urinary bladder, correlate with whether the patient can void. 6. Small fat-containing umbilical hernia. Hysterectomy and cholecystectomy. Electronically Signed: Olya Cottrell MD at 3:11 EST ,
[2022-10-09 01:57] LABS: Absolute Lymphocyte Count 4.14 X10^3/uL (0.83-4.51); Basophil# 0.07 X10^3/uL; Basophil% 0.7 % (0-1); Eosinophil# 0.13 X10^3/uL; Eosinophils% 1.3 % (0-5); Hematocrit 35.7 % (37-47); Hemoglobin 11.5 g/dL (12.0-15.0); Lymphocyte # 4.14 X10^3/ul (0.83-4.51); Lymphocyte % 41.9 % (19-41); Mean Corp Hgb Conc 32.2 g/dL (32-36); Mean Corpuscular Volume 86.9 fL (81-99); Mean Platelet Vol. 9.8 fl (6.2-12.0); Monocyte# 0.54 X10^3/uL; Monocyte% 5.5 % (0-10); NRBC Flagged by Analyzer 0 % (0-5); Neutrophil # 4.96 X10^3/uL (2.7-7.7); Neutrophil % 50.3 % (47-70); Platelet Count 286 K/mm3 (150-450); RBC Distribution Width CV 13.9 % (11.6-14.6); Red Blood Count 4.11 M/mm3 (4.2-5.4); White Blood Count 9.9 K/mm3 (4.4-11.0)
[2022-10-09] MEDS: Ondansetron 4 MG/2 ML Vial IV (01:59)
[2022-10-09] MEDS: Morphine 4 MG/ML Syringe IV (01:59)
[2022-10-09] MEDS: 0.9% Normal Saline 1,000 ML 999 ML IV (01:59)
[2022-10-09 02:12] LABS: AST(SGOT) 17 U/L (15-37); Alanine Aminotransfer ALT/SGPT 25 U/L (13-56); Albumin, Serum 3.1 g/dL (3.2-5.0); Alkaline Phosphatase 69 U/L (45-117); Anion Gap 5 (5-15); BUN 26 mg/dL (7-18); Bilirubin, Direct 0.11 mg/dL (0.00-0.30); Calcium,Total 8.8 mg/dL (8.5-10.1); Chloride 100 mmol/L (98-107); Creatinine, Serum 1.24 mg/dL (0.55-1.02); EST Glomerular Filtration Rate 47 mL/min (>60); Est Glom Filt Rate - Afr Amer 57 mL/min (>60); Estimated Creatinine Clearance 35.09 ml/min; Globulin 3.8 g/dL (2.2-4.2); Glucose 272 mg/dL (74-106); Lipase 89 U/L (73-393); Potassium 4.8 mmol/L (3.5-5.1); Protein, Total 6.9 g/dL (6.4-8.2); Sodium Level 134 mmol/L (136-145)
[2022-10-09 02:45] LABS: Color, Urine Yellow (Yellow); Glucose, Dipstick 100 mg/dl (Normal); Ketone-Dipstick Negative (Negative); Leukocyte Esterase-Dipstick 500 /ul (Negative); Mucous, Urine 0 SEEN /hpf (<or=2+); Nitrite-Dipstick Negative (Negative); Occult Blood-Urine 10 /ul (Negative); Protein-Dipstick 15 mg/dl (Negative); Red Blood Cells-Urine 0 SEEN /hpf (0-5); Urine Bilirubin Dipstick Negative (Negative); Urine Clarity Sl. Cloudy (Clear); Urine Urobilinogen Normal (Normal); Urine pH 6.5 (5.0 - 8.0)
[2022-10-09 03:00] LABS: Bacteria 4+ /hpf (None Seen); Squamous Epithelial Cells - UA 0-5 SEEN /hpf (5-10); White Blood Cells 25-50 SEEN /hpf (0-5)
[2022-10-09] MEDS: Ceftriaxone 1 GM/50 ML BAG IV (03:24)
--- NOTE | 2022-10-09 03:33 | EX.ED.DYSGE1 ---
HPI History of Present Illness Chief Complaint: Abd Pain Narrative Narrative: Patient is a 57-year-old female with past medical history of type 2 diabetes hypertension hyperlipidemia and chronic kidney disease. She states that this evening after dinner she noticed that she was having pain in the right side of her abdomen. She states that there is nausea without vomiting that began after the pain. She states there was no trauma and she denies any excessive activity. She states she has had her uterus ovaries and gallbladder removed but her appendix remains in place. She states she has concern for an infection to her appendix based on the location of pain and therefore comes in for evaluation [facility] Medical History Carpal tunnel syndrome Chronic back pain Chronic renal failure, stage 3a CKD (chronic kidney disease) stage 3, GFR 30-59 ml/min Contusion of great toe, right Contusion of knee Depression Depressive disorder Diabetes Difficulty in walking, not elsewhere classified Elevated troponin Essential hypertension Fatigue Former smoker History of left heart catheterization (LHC) (~05/21/22) HTN (hypertension) Hyperlipidemia Hypokalemia Hypothyroidism Infection of tooth Intervertebral disc disorder with radiculopathy of lumbar region Kidney disease Kidney stones Migraines Normochromic normocytic anemia Obesity (BMI 35.0-39.9 without comorbidity) Opiate abuse, continuous Orthostatic hypotension Pure hypercholesterolemia Renal insufficiency Stomach ulcer Thyroid disease Type II diabetes mellitus, uncontrolled Home Medications rizatriptan 10 mg tablet 10 mg PO PRN PRN Migraine Symptoms 12/27/17 [History Last Taken Unknown] pen needle,diabetic, disp unit 29 gauge x 1/2, remover and disposal unit #100 ea 06/23/21 [Rx Last Taken Unknown] gabapentin 300 mg capsule 300 mg PO TIDCM #60 caps 03/24/22 [Rx Last Taken 04/24/22] insulin lispro 100 unit/mL subcutaneous pen (Humalog KwikPen (U-100) Insulin) 10 unit (0.1 mL) subcut TIDAC #0 mL 03/24/22 [Rx Last Taken 04/24/22] acetaminophen 500 mg tablet 1,000 mg PO TID PRN pain #0 tabs 03/27/22 [Rx Last Taken 04/23/22 16:40] polyethylene glycol 3350 17 gram oral powder packet 17 g PO DAILY PRN PRN constipation #0 ea 03/27/22 [Rx Last Taken Unknown] sennosides 8.6 mg-docusate sodium 50 mg tablet (Stool Softener-Stimulant Laxative) 2 tab PO BID #0 tabs 03/27/22 [Rx Last Taken Unknown] aluminum-mag hydroxide-simethicone 400 mg-400 mg-40 mg/5 mL oral susp (Mylanta Maximum Strength) 15 ml PO Q4H PRN Stomach Upset 04/24/22 [History Last Taken 04/24/22] baclofen 10 mg tablet 10 mg PO Q6H PRN Pain 04/24/22 [History Last Taken 04/24/22 05:18] aspirin 81 mg tablet,delayed release (Constance Low Dose Aspirin) 81 mg PO DAILY #30 tabs 05/21/22 [Rx Last Taken Unknown] atorvastatin 40 mg tablet 40 mg PO QHS #30 tabs 05/21/22 [Rx Last Taken Unknown] metoprolol succinate 25 mg tablet,extended release 24 hr 25 mg PO DAILY #30 tabs 05/21/22 [Rx Last Taken Unknown] alprazolam 0.5 mg tablet 0.5 mg PO BID mood 06/12/22 [History Last Taken Unknown] dextrose 40 % oral gel (Glutose-15) 15 g PO Q15M PRN Blood Sugar 06/12/22 [History Last Taken Unknown] levothyroxine 175 mcg capsule 175 mcg PO DAILY 06/12/22 [History Last Taken Unknown] lidocaine 4 % topical patch 2 patch topical DAILY Back Pain 06/12/22 [History Last Taken Unknown] loperamide 2 mg capsule 2 mg PO Q6H PRN Diarrhea 06/12/22 [History Last Taken Unknown] pantoprazole 40 mg tablet,delayed release 40 mg PO DAILY 06/12/22 [History Last Taken Unknown] ranolazine 500 mg tablet,extended release,12 hr 500 mg PO BID #60 tabs 06/12/22 [Rx Last Taken Unknown] insulin glargine-yfgn 100 unit/mL (3 mL) subcutaneous pen 45 unit subcut QAM 09/09/22 [History Last Taken Unknown] midodrine 10 mg tablet 10 mg PO BID 09/09/22 [History Last Taken Unknown] mirtazapine 15 mg tablet 15 mg PO QHS 09/09/22 [History Last Taken Unknown] nitroglycerin 0.4 mg sublingual tablet 0.4 mg sublingual Q5-15M 09/09/22 [History Last Taken Unknown] quetiapine 25 mg tablet 25 mg PO QHS 09/09/22 [History Last Taken Unknown] quetiapine 50 mg tablet 50 mg PO QHS 09/09/22 [History Last Taken Unknown] cephalexin 500 mg capsule 500 mg PO TID 7 days #21 caps 10/09/22 [Rx Last Taken Unknown] insulin glargine 100 unit/mL (3 mL) subcutaneous pen (Lantus Solostar U-100 Insulin) 55 unit subcut DAILY 10/09/22 [History Last Taken Unknown] ondansetron 4 mg disintegrating tablet 4 mg PO TID PRN nausea and vomiting #21 tabs 10/09/22 [Rx Last Taken Unknown] phenazopyridine 200 mg tablet (Pyridium) 200 mg PO TID 2 days #6 tabs 10/09/22 [Rx Last Taken Unknown] Allergy/AdvReac Type Severity Reaction Status Date / Time celecoxib [From Celebrex] Allergy Itching Verified 10/09/22 01:33 ciprofloxacin [From Cipro] Allergy Swelling Verified 10/09/22 01:33 ciprofloxacin HCl Allergy Swelling Verified 10/09/22 01:33 [From Cipro] codeine Allergy Hives Verified 10/09/22 01:33 ibuprofen Allergy Hives Verified 10/09/22 01:33 naproxen Allergy Hives Verified 10/09/22 01:33 Penicillins Allergy Hives Verified 10/09/22 01:33 tramadol HCl [From Ultram] Allergy Hives Verified 10/09/22 01:33 ketorolac [From Toradol] AdvReac Swelling Verified 10/09/22 01:33 Family History Other CVA (cerebral vascular accident) Cancer Diabetes Myocardial infarction Surgical History H/O: hysterectomy Hx of section S/P trigger finger release Social History household members: other details: currently living in a NH for therapy for chronic back pain housing: jail Smoking Status: Former smoker Tobacco: How many years used: 46 how long ago did patient quit smoking: She quit smoking in August or September of 2021. She started smoking at 14 alcohol intake: never substance use type: other details: has a hx of chronic opioid use ROS ROS ED Constitutional Constitutional ED: Denies chills or fever(s) ENT ENT ED: Denies sore throat Cardiovascular Cardiovascular: Denies chest pain Respiratory/Chest Respiratory/Chest: Denies cough or dyspnea Gastrointestinal Gastrointestinal: Reports abdominal pain and nausea; Denies diarrhea or vomiting Genitourinary Genitourinary ED: Reports dysuria Musculoskeletal Musculoskeletal: Denies back pain or myalgias Integumentary Denies rash Neurologic Neurologic: Denies headache(s) Hematologic/Lymphatic Hematologic/Lymphatic: Denies easy bleeding or easy bruising EXAM Physical Exam Const Vital Signs: 10/09/22 01:29 10/09/22 04:11 Temperature 98.6 F Temperature Source Temporal Pulse Rate 82 68 Respiratory Rate 18 18 Blood Pressure 100/67 Blood Pressure Mean 78 Pulse Ox 97 97 Oxygen Delivery Method Room Air Room Air Positive well nourished and well developed General Appearance ED: well developed HEENT Reports dry mucous membranes Mouth ED: Yes dry mucous membranes Mouth: dry mucous membranes Eyes PERRL and EOMs intact bilaterally Neck supple Resp normal respiratory effort and clear to auscultation bilaterally Cardio regular rate and regular rhythm Rate: other Other Details: Radial pulses are +2-4 bilaterally are equal and symmetric Carotid pulses are equal and symmetric as well GI non-distended GI Narrative: Abdomen is soft and nondistended with normoactive bowel sounds. There is pain on palpation in the suprapubic to right lower quadrant region without voluntary guarding or rigidity. No pulsatile mass or fluid wave. No increased tympany Auscultation: normoactive bowel sounds Palpation: soft Back/Spine no CVA tenderness Extremity normal to inspection Neuro oriented x3 and CN's II-XII intact bilaterally Sensorium / Orientation: alert Psych mental status grossly normal Skin no rashes or lesions noted MDM MDM MDM Narrative Medical decision making narrative: Patient presented to the ER with stable vitals. Abdomen was soft and nonsurgical but as she has pain greatest in her right lower quadrant and so has her appendix there was concern for this and therefore basic labs and a CT scan were ordered. Labs showed +4 bacteria in the urine without contamination otherwise no leukocytosis left shift or a acute kidney injury. CT scan showed a normal appendix without kidney stone. Patient's bladder was distended on CAT scan but she is able to urinate without difficulty following the imaging study. Therefore this time patient has a UTI without acute urinary retention or acute kidney injury or signs of urosepsis. Therefore she will be given antibiotics and discharged home Lab Data Attestation: I reviewed the patient's lab results. Labs: Laboratory Results - last 24 hr 10/09/22 10/09/22 10/09/22 01:43 01:43 02:40 WBC 9.9 RBC 4.11 L Hgb 11.5 L Hct 35.7 L MCV 86.9 MCH 28.0 MCHC 32.2 RDW Std Deviation 44.0 H RDW Coeff of Anisa 13.9 Plt Count 286 MPV 9.8 Immature Gran % (Auto) 0.300 Neut % (Auto) 50.3 Lymph % (Auto) 41.9 H [place] % (Auto) 5.5 Eos % (Auto) 1.3 Baso % (Auto) 0.7 Absolute Neuts (auto) 5.0 Absolute Lymphs (auto) 4.14 Nucleated RBC % 0 Sodium 134 L Potassium 4.8 Chloride 100 Carbon Dioxide 29.0 Anion Gap 5 BUN 26 H Creatinine 1.24 H Estim Creat Clear Calc 35.09 Est GFR (MDRD) Af Amer 57 L Est GFR (MDRD) Non-Af 47 L BUN/Creatinine Ratio 21.0 H Glucose 272 H Calcium 8.8 Total Bilirubin 0.30 Direct Bilirubin 0.11 AST 17 ALT 25 Alkaline Phosphatase 69 Total Protein 6.9 Albumin 3.1 L Globulin 3.8 Lipase 89 Urine Color Yellow Urine Clarity Sl. Cloudy Urine pH 6.5 Ur Specific [place] 1.010 Urine Protein 15 H Urine Glucose (UA) 100 H Urine Ketones Negative Urine Occult Blood 10 H Urine Nitrite Negative Urine Bilirubin Negative Urine Urobilinogen Normal Ur Leukocyte Esterase 500 H Urine RBC 0 SEEN Urine WBC 25-50 SEEN Ur Squamous Epith Cells 0-5 SEEN Urine Bacteria 4+ Urine Mucus 0 SEEN Radiography Diagnostic Testing: Clinical Impression(s) from Imaging Studies Abdomen/Pelvis CT 10/09/22 01:49 IMPRESSION: 1. Prominent colon contents, fluid and air in the proximal half of the colon and moderate stool in the distal half of the colon and rectum. 2. No evidence of appendicitis. 3. Mildly prominent small bowel gas. No evidence of small bowel obstruction. 4. Advanced atherosclerotic changes with high-grade right renal artery stenosis, stable. Similar symmetric renal size and enhancement. 5. Moderately distended urinary bladder, correlate with whether the patient can void. 6. Small fat-containing umbilical hernia. Hysterectomy and cholecystectomy. Electronically Signed: Olya Cottrell MD at 3:11 EST , Discharge Plan Triage Chief Complaint: Abd Pain ED Provider: Tip Hamilton Dx/Rx/DC Orders Clinical Impression: Urinary tract infection, Essential hypertension, Insulin dependent diabetes mellitus Instructions: Urinary Tract Infections in Women Prescriptions: New cephalexin 500 mg capsule 500 mg PO TID 7 Days Qty: 21 0RF ondansetron 4 mg tablet,disintegrating 4 mg PO TID PRN (Reason: nausea and vomiting) Qty: 21 0RF phenazopyridine [Pyridium] 200 mg tablet 200 mg PO TID 2 Days Qty: 6 0RF No Action levothyroxine 175 mcg capsule 175 mcg PO DAILY pantoprazole 40 mg tablet,delayed release (DR/EC) 40 mg PO DAILY loperamide 2 mg capsule 2 mg PO Q6H PRN (Reason: Diarrhea) dextrose [Glutose-15] 40 % gel 15 g PO Q15M PRN (Reason: Blood Sugar) Rx Instructions: until symptoms of low blood sugar are controlled ranolazine 500 mg tablet extended release 12 hr 500 mg PO BID Qty: 60 11RF insulin glargine-yfgn 100 unit/mL (3 mL) insulin pen 45 unit subcut QAM mirtazapine 15 mg tablet 15 mg PO QHS nitroglycerin 0.4 mg tablet, sublingual 0.4 mg sublingual Q5-15M quetiapine 25 mg tablet 25 mg PO QHS quetiapine 50 mg tablet 50 mg PO QHS midodrine 10 mg tablet 10 mg PO BID rizatriptan 10 tablet 10 mg PO PRN PRN (Reason: Migraine Symptoms) Label Comments: (DME) pen needle,diabetic, disp unit 29 gauge x 1/2 needle See Rx Instructions .ROUTE .MEDSUPPLY Qty: 100 0RF Rx Instructions: As directed insulin lispro [Humalog KwikPen Insulin] 100 unit/mL Insulin Pen 10 unit subcut TIDAC Qty: 0 0RF gabapentin 300 mg Capsule 300 mg PO TIDCM Qty: 60 0RF acetaminophen 500 mg Tablet 1,000 mg PO TID PRN (Reason: pain) Qty: 0 0RF polyethylene glycol 3350 17 gram Powder In Packet 17 g PO DAILY PRN PRN (Reason: constipation) Qty: 0 0RF sennosides-docusate sodium [Stool Softener-Stimulant Laxat] 8.6-50 mg Tablet 2 tab PO BID Qty: 0 0RF alprazolam 0.5 mg tablet 0.5 mg PO BID baclofen 10 mg Tablet 10 mg PO Q6H PRN (Reason: Pain) alum-mag hydroxide-simeth [Mylanta Maximum Strength] 400-400-40 mg/5 mL Suspension 15 ml PO Q4H PRN (Reason: Stomach Upset) lidocaine 4 % adhesive patch,medicated 2 patch TOPICAL DAILY Label Comments: PER RESIDENTIAL MAR PT GETS 2 PATCHES APPLIED TO BACK IN THE AM AND REMOVED AFTER 12 HOURS IN THE PM. metoprolol succinate 25 mg Tablet Extended Release 24 Hr 25 mg PO DAILY Qty: 30 2RF atorvastatin 40 mg tablet 40 mg PO QHS Qty: 30 2RF aspirin [Constance Low Dose Aspirin] 81 mg tablet,delayed release (DR/EC) 81 mg PO DAILY Qty: 30 3RF insulin glargine [Lantus Solostar U-100 Insulin] 100 unit/mL (3 mL) insulin pen 55 unit SUBCUT DAILY Primary Care Provider: Lizet Linares Referrals: Lizet Linares MD [Primary Care Provider] - Activity Restrictions/Additional Instructions: Your work-up today does not show a kidney stone bowel obstruction or acute appendicitis. It does demonstrate urinary tract infection but at this time it is not causing kidney damage or moving in your bloodstream. Therefore take the antibiotic as directed to help resolve your infection and return to the ER should you have any further concerns. Disposition Disposition: Home, Self Care Discharge Date/Time: 10/09/22 04:17
[2022-10-09 04:11] VITALS: BP 100/67; PULSE 68; RESP 18; O2SAT 97
== END 2022-10-09 04:17 | disposition home or self-care (01) ==
PROVIDERS: Emergency Provider Emergency Medicine; PCP Internal Medicine; Visit Provider Emergency Medicine
DX: N39.0 Urinary tract infection, site not specified (principal); E11.22 Type 2 diabetes mellitus with diabetic chronic kidney disease; Z79.4 Long term (current) use of insulin; N18.31 Chronic kidney disease, stage 3a; R10.31 Right lower quadrant pain; G89.29 Other chronic pain; I12.9 Hypertensive chronic kidney disease with stage 1 through stage 4 chronic kidney disease, or unspecified chronic kidney disease; E78.00 Pure hypercholesterolemia, unspecified; E03.9 Hypothyroidism, unspecified; F32.A Depression, unspecified; E66.9 Obesity, unspecified; Z79.82 Long term (current) use of aspirin; Z79.890 Hormone replacement therapy; Z79.899 Other long term (current) drug therapy; Z87.891 Personal history of nicotine dependence
CPT/HCPCS: 74177; 80048; 80076; 81001; 83690; 85025; 87086; 96361; 96365; 96375; 99285; J7030; Q9967; A4216; J2405

== ENCOUNTER → 2022-10-13 | Outpatient (REF) | payer MEDICARE, MEDICAID, SELFPAY ==
[2022-10-13 09:30] LABS: Hematocrit 36.3 % (37-47); Hemoglobin 11.8 g/dL (12.0-15.0); Mean Corp Hgb Conc 32.5 g/dL (32-36); Mean Corpuscular Hgb 28.4 pg (27.0-32.0); Mean Corpuscular Volume 87.5 fL (81-99); Platelet Count 274 K/mm3 (150-450); RBC Distribution Width CV 13.5 % (11.6-14.6); RBC Distribution Width SD 43.6 fl (35.1-43.9); Red Blood Count 4.15 M/mm3 (4.2-5.4); White Blood Count 6.8 K/mm3 (4.4-11.0)
[2022-10-13 09:33] LABS: Anion Gap 9 (5-15); BUN 21 mg/dL (7-18); BUN/Creat Ratio 15.2 RATIO (10-20); Chloride 96 mmol/L (98-107); Creatinine, Serum 1.38 mg/dL (0.55-1.02); EST Glomerular Filtration Rate 42 mL/min (>60); Est Glom Filt Rate - Afr Amer 50 mL/min (>60); Glucose 332 mg/dL (74-106); Potassium 4.4 mmol/L (3.5-5.1); Sodium Level 134 mmol/L (136-145)
== END ==
LOC: OLS.WHLEAS 05:00
PROVIDERS: PCP Internal Medicine; Visit Provider Internal Medicine
DX: M51.16 Intervertebral disc disorders with radiculopathy, lumbar region (principal); E11.42 Type 2 diabetes mellitus with diabetic polyneuropathy; E11.22 Type 2 diabetes mellitus with diabetic chronic kidney disease; N18.31 Chronic kidney disease, stage 3a; M62.81 Muscle weakness (generalized); R26.2 Difficulty in walking, not elsewhere classified
CPT/HCPCS: 36415; 80048; 85027

== ENCOUNTER → 2022-10-27 | Outpatient (REF) | payer MEDICARE, MEDICAID, SELFPAY ==
[2022-10-27 09:27] LABS: Hematocrit 35.4 % (37-47); Hemoglobin 11.4 g/dL (12.0-15.0); Mean Corp Hgb Conc 32.2 g/dL (32-36); Mean Corpuscular Hgb 28.4 pg (27.0-32.0); Mean Corpuscular Volume 88.1 fL (81-99); Mean Platelet Vol. 10.4 fl (6.2-12.0); Platelet Count 299 K/mm3 (150-450); RBC Distribution Width CV 13.7 % (11.6-14.6); RBC Distribution Width SD 44.1 fl (35.1-43.9); Red Blood Count 4.02 M/mm3 (4.2-5.4); White Blood Count 7.7 K/mm3 (4.4-11.0)
[2022-10-27 10:30] LABS: Anion Gap 5 (5-15); BUN 29 mg/dL (7-18); BUN/Creat Ratio 24.8 RATIO (10-20); Chloride 100 mmol/L (98-107); Creatinine, Serum 1.17 mg/dL (0.55-1.02); EST Glomerular Filtration Rate 50 mL/min (>60); Est Glom Filt Rate - Afr Amer 61 mL/min (>60); Glucose 295 mg/dL (74-106); Potassium 4.3 mmol/L (3.5-5.1); Sodium Level 134 mmol/L (136-145)
== END ==
LOC: OLS.WHLEAS 05:00
PROVIDERS: PCP Internal Medicine; Visit Provider Internal Medicine
DX: E11.22 Type 2 diabetes mellitus with diabetic chronic kidney disease (principal); N18.31 Chronic kidney disease, stage 3a; M51.16 Intervertebral disc disorders with radiculopathy, lumbar region; E11.42 Type 2 diabetes mellitus with diabetic polyneuropathy; M62.81 Muscle weakness (generalized); R26.2 Difficulty in walking, not elsewhere classified
CPT/HCPCS: 36415; 80048; 85027

== ENCOUNTER → 2022-10-30 | Outpatient (REF) | payer MEDICARE, MEDICAID, SELFPAY ==
[2022-10-30 08:35] LABS: Anion Gap 6 (5-15); BUN 30 mg/dL (7-18); BUN/Creat Ratio 23.1 RATIO (10-20); Calcium,Total 8.9 mg/dL (8.5-10.1); Chloride 100 mmol/L (98-107); EST Glomerular Filtration Rate 45 mL/min (>60); Est Glom Filt Rate - Afr Amer 54 mL/min (>60); Glucose 359 mg/dL (74-106); Potassium 4.2 mmol/L (3.5-5.1); Sodium Level 134 mmol/L (136-145)
== END ==
LOC: OLS.WHLEAS 05:00
PROVIDERS: PCP Internal Medicine; Visit Provider Internal Medicine
DX: E11.42 Type 2 diabetes mellitus with diabetic polyneuropathy (principal); M51.16 Intervertebral disc disorders with radiculopathy, lumbar region; M62.81 Muscle weakness (generalized); R26.2 Difficulty in walking, not elsewhere classified
CPT/HCPCS: 36415; 80048

== ENCOUNTER 2022-11-05 01:43 | Emergency (ER) | payer MEDICARE, MEDICAID, SELFPAY ==
[2022-11-05 01:44] VITALS: BP 172/92; PULSE 112; RESP 15; TEMP 35.9; O2SAT 98; BMI 33.7
--- NOTE | 2022-11-05 01:46 | RAD_ITS ---
STUDY: X-RAY CHEST REASON FOR EXAM: Female, 57 years old. Chest pain TECHNIQUE: Single AP portable view of the chest. COMPARISON: August 24, 2022 chest x-ray FINDINGS: The lungs are clear and expanded. There is no demonstrated pleural abnormality. Normal size heart. Normal mediastinum and adryan. Normal visualized pulmonary arteries. There is atherosclerotic calcification of the aortic arch with tortuosity. There are diffuse degenerative changes of the visualized thoracic spine. Normal visualized ribs, clavicles, and shoulders. There is no demonstrated abnormality of the visualized soft tissue structures of the upper abdomen. RAD/Chest 1 View (Portable) IMPRESSION: No demonstrated acute cardiopulmonary process. Electronically Signed: Cecile Roach MD at 2:19 EST ,
--- NOTE | 2022-11-05 01:46 | EKG12_ITS ---
Test Reason : CP Blood Pressure : / mmHG Vent. Rate : 102 BPM Atrial Rate : 102 BPM P-R Int : 164 ms QRS Dur : 070 ms QT Int : 354 ms P-R-T Axes : 026 -21 012 degrees QTc Int : 461 ms Sinus tachycardia Inferior infarct , age undetermined Anterior infarct , age undetermined Abnormal ECG Confirmed by OSCAR SANTANA, MIRACLE ([id number]), publishing editor MILE MCMAHAN ([id number]) on 11/09/2022 12:23:24 PM Referred By: Confirmed By:MIRACLE MOORE MD
--- NOTE | 2022-11-05 01:50 | ED.VIS.CHEST ---
HPI History of Present Illness Chief Complaint: Chest Pain Informant: patient and EMS Onset/Context/Timing Onset: Hours (1-2) Activity at onset: sudden, onset, activity on onset and rest (sitting in recliner) Timing: Continuous Quality: Positive for Heaviness and Pressure Location: Left Chest (radiating to left neck/face) Current Severity: Severe Maximum Severity: Severe Worsened By: Nothing Relieved By: Nothing (has been given NTG x 2 ABSORPTION OPERATOR and ASA) Associated Symptoms: Positive for Nausea and Dyspnea; Negative for Vomiting, Diaphoresis, Cough, Fever, Lightheadedness or Palpitations Narrative Narrative: Patient presenting with 1 to 2 hours of chest discomfort that feels like someone is sitting on the left side of her chest. Has been seen here multiple times in the past for this, it was this past summer mostly and recurrent visits with similar symptoms led to a heart catheterization which showed less than 50% moderate disease in the LAD and mid circumflex. She has been treated medically and did not require PCI. Prior to arrival here [facility], as she is a halfway resident, she reported her discomfort to the nurses, she was given nitroglycerin x2 which did not help, and EMS was called to transport her. She was additionally given aspirin. She states the pain is a 10/10 right now. [facility] Medical History Carpal tunnel syndrome Chronic back pain Chronic renal failure, stage 3a CKD (chronic kidney disease) stage 3, GFR 30-59 ml/min Contusion of great toe, right Contusion of knee Depression Depressive disorder Diabetes Difficulty in walking, not elsewhere classified Elevated troponin Essential hypertension Fatigue Former smoker History of left heart catheterization (LHC) (~05/21/22) HTN (hypertension) Hyperlipidemia Hypokalemia Hypothyroidism Infection of tooth Intervertebral disc disorder with radiculopathy of lumbar region Kidney disease Kidney stones Migraines Normochromic normocytic anemia Obesity (BMI 35.0-39.9 without comorbidity) Opiate abuse, continuous Orthostatic hypotension Pure hypercholesterolemia Renal insufficiency Stomach ulcer Thyroid disease Type II diabetes mellitus, uncontrolled Home Medications rizatriptan 10 mg tablet 10 mg PO PRN PRN Migraine Symptoms 12/27/17 [History Last Taken Unknown] pen needle,diabetic, disp unit 29 gauge x 1/2, remover and disposal unit #100 ea 08/30/21 [Rx Last Taken Unknown] acetaminophen 500 mg tablet 1,000 mg PO TID PRN pain #0 tabs 03/27/22 [Rx Last Taken 04/23/22 16:40] polyethylene glycol 3350 17 gram oral powder packet 17 g PO DAILY PRN PRN constipation #0 ea 03/27/22 [Rx Last Taken Unknown] sennosides 8.6 mg-docusate sodium 50 mg tablet (Stool Softener-Stimulant Laxative) 2 tab PO BID #0 tabs 03/27/22 [Rx Last Taken Unknown] aluminum-mag hydroxide-simethicone 400 mg-400 mg-40 mg/5 mL oral susp (Mylanta Maximum Strength) 15 ml PO Q4H PRN Stomach Upset 04/24/22 [History Last Taken 04/24/22] aspirin 81 mg tablet,delayed release (Constance Low Dose Aspirin) 81 mg PO DAILY #30 tabs 05/21/22 [Rx Last Taken Unknown] atorvastatin 40 mg tablet 40 mg PO QHS #30 tabs 05/21/22 [Rx Last Taken Unknown] metoprolol succinate 25 mg tablet,extended release 24 hr 25 mg PO DAILY #30 tabs 05/21/22 [Rx Last Taken Unknown] alprazolam 0.5 mg tablet 0.5 mg PO BID mood 06/12/22 [History Last Taken Unknown] dextrose 40 % oral gel (Glutose-15) 15 g PO Q15M PRN Blood Sugar 06/12/22 [History Last Taken Unknown] levothyroxine 175 mcg capsule 175 mcg PO DAILY 06/12/22 [History Last Taken Unknown] lidocaine 4 % topical patch 2 patch topical DAILY Back Pain 06/12/22 [History Last Taken Unknown] pantoprazole 40 mg tablet,delayed release 40 mg PO DAILY 06/12/22 [History Last Taken Unknown] ranolazine 500 mg tablet,extended release,12 hr 500 mg PO BID #60 tabs 06/12/22 [Rx Last Taken Unknown] insulin glargine-yfgn 100 unit/mL (3 mL) subcutaneous pen 60 unit subcut QHS 09/09/22 [History Last Taken Unknown] midodrine 10 mg tablet 10 mg PO BID 09/09/22 [History Last Taken Unknown] mirtazapine 15 mg tablet 7.5 mg PO QHS 09/09/22 [History Last Taken Unknown] nitroglycerin 0.4 mg sublingual tablet 0.4 mg sublingual Q5-15M 09/09/22 [History Last Taken Unknown] ondansetron 4 mg disintegrating tablet 4 mg PO TID PRN nausea and vomiting #21 tabs 10/09/22 [Rx Last Taken Unknown] gabapentin 100 mg capsule 100 mg PO DAILY 11/05/22 [History Last Taken Unknown] gabapentin 300 mg capsule 300 mg PO BID 11/05/22 [History Last Taken Unknown] insulin lispro 100 unit/mL subcutaneous pen 15 unit subcut TID 11/05/22 [History Last Taken Unknown] insulin lispro 100 unit/mL subcutaneous pen (Humalog KwikPen (U-100) Insulin) 14 unit subcut DAILY 11/05/22 [History Last Taken Unknown] quetiapine 50 mg tablet 50 mg PO QHS 11/05/22 [History Last Taken Unknown] Allergy/AdvReac Type Severity Reaction Status Date / Time celecoxib [From Celebrex] Allergy Itching Verified 11/05/22 02:02 ciprofloxacin [From Cipro] Allergy Swelling Verified 11/05/22 02:02 ciprofloxacin HCl Allergy Swelling Verified 11/05/22 02:02 [From Cipro] codeine Allergy Hives Verified 11/05/22 02:02 ibuprofen Allergy Hives Verified 11/05/22 02:02 naproxen Allergy Hives Verified 11/05/22 02:02 Penicillins Allergy Hives Verified 11/05/22 02:02 tramadol HCl [From Ultram] Allergy Hives Verified 11/05/22 02:02 ketorolac [From Toradol] AdvReac Swelling Verified 11/05/22 02:02 Family History Other CVA (cerebral vascular accident) Cancer Diabetes Myocardial infarction Surgical History H/O: hysterectomy Hx of section S/P trigger finger release Social History household members: other details: currently living in a NH for therapy for chronic back pain housing: halfway Smoking Status: Former smoker Tobacco: How many years used: 46 how long ago did patient quit smoking: She quit smoking in August or September of 2021. She started smoking at 14 alcohol intake: never substance use type: other details: has a hx of chronic opioid use ROS ROS ED Constitutional Constitutional ED: Denies chills or fever(s) Eyes Eyes: Denies change in vision or diplopia ENT ENT ED: Denies rhinorrhea or sore throat Cardiovascular Cardiovascular: Reports chest pain; Denies palpitations Respiratory/Chest Respiratory/Chest: Reports dyspnea; Denies cough Gastrointestinal Gastrointestinal: Reports nausea; Denies abdominal pain, diarrhea or vomiting Genitourinary Genitourinary ED: Denies dysuria or hematuria Musculoskeletal Musculoskeletal: Denies back pain or neck pain Integumentary Denies abscess or rash Neurologic Neurologic: Denies headache(s), paresthesias or weakness Psychiatric Psychiatric: Reports anxiety; Denies suicidal thoughts EXAM Physical Exam Const Vital Signs: 11/05/22 01:44 11/05/22 01:46 11/05/22 01:50 Temperature 96.7 F L Temperature Source Temporal Pulse Rate 112 H Respiratory Rate 15 Respiratory Effort Short of Breath Blood Pressure 172/92 H Blood Pressure Mean 118 Pulse Ox 98 Oxygen Delivery Method Room Air Room Air 11/05/22 03:02 11/05/22 04:00 Temperature Temperature Source Pulse Rate 91 88 Respiratory Rate 13 13 Respiratory Effort Blood Pressure 131/68 H 143/75 H Blood Pressure Mean 89 97 Pulse Ox 96 94 Oxygen Delivery Method Room Air Room Air Positive well nourished and well developed General Appearance ED: well developed and NAD HEENT Reports moist mucous membranes normocephalic and atraumatic Eyes PERRL and EOMs intact bilaterally Neck full ROM and supple Chest Wall inspection of chest normal Chest Narrative: Tender in the left chest where patient is having pain Chest: tenderness Resp normal respiratory effort and clear to auscultation bilaterally Resp Narrative: No splinting with deep inspiration. Clear lungs. Cardio regular rate, regular rhythm and no murmurs Peripheral Pulses: pulses 2+ throughout GI non-distended GI Narrative: Tender epigastrium and left upper quadrant. No guarding or rebound tenderness or pulsatile mass palpable. Auscultation: normoactive bowel sounds Palpation: soft Back/Spine no CVA tenderness General Back: other FROM Extremity normal to inspection and no calf tenderness General Extremety ED: Yes edema; Negative for pulses abnormal or tenderness General Extremity: edema bilateral lower extremity Details: trace; Negative for pulses abnormal Neuro oriented x3, CN's II-XII intact bilaterally and no sensory deficits noted Sensorium / Orientation: awake and alert Motor Exam: strength 5/5 throughout Psych Mood & Affect: anxious and tearful Skin no rashes or lesions noted and no wounds Heart Score History: Moderately Suspicious ECG: Normal Age: >45 - <65 years Risk Factors: >/= 3 Risk Factors or History of CAD Troponin: </= Normal Limit Score: 4 MDM MDM MDM Narrative Medical decision making narrative: I reviewed outside note from cardiology clinic this past summer as well as cath report from May this past year, 5 months ago. Also reviewed ED visit after this catheterization with the same symptoms for multiple visits prior to that as well as this visit, she had a CTA that was negative for anything acute with regards to her heart and/or aorta. For this reason I do not think she needs to be exposed to the contrast for that study again since these of the same symptoms and was not a dissection before. Her symptoms are less consistent with dissection and/or pulmonary embolus. Since nitroglycerin is not helping and her EKG shows no ischemic abnormalities, my suspicion is that this is not cardiac either. Although certainly she does have some degree of coronary disease and is at risk for progression, cardiac work-up was still entertained along with a 2-hour delta, but in the meantime she was given morphine and GI cocktail to see if that would help her feel better since she was uncomfortable. She said it did not really help. Considering that subsequently her vital signs are essentially normal with resolution of her mild tachycardia, and no hypoxemia, with this discomfort being recurrent and seemingly random, I considered the possibility of this being esophagus spasm. Chest wall etiologies are also in the differential diagnosis, especially considering that she has tenderness in the area of discomfort. Instead of treating her with more narcotics, I treated her with Ativan and Bentyl parenterally. She did have some improvement although she still had the discomfort. Her second troponin came back normal, lower than the first measurement. At this time despite the persistence of her symptoms, I do not think she has acute coronary syndrome and can be safely discharged back to the halfway. Lab Data Attestation: I reviewed the patient's lab results. Labs: Laboratory Results - last 24 hr 11/05/22 11/05/22 11/05/22 01:52 01:52 04:03 WBC 9.1 RBC 4.28 Hgb 12.1 Hct 36.8 L MCV 86.0 MCH 28.3 MCHC 32.9 RDW Std Deviation 42.0 RDW Coeff of Anisa 13.3 Plt Count 290 MPV 9.7 Immature Gran % (Auto) 0.400 Neut % (Auto) 48.7 Lymph % (Auto) 44.2 H [place] % (Auto) 4.2 Eos % (Auto) 1.7 Baso % (Auto) 0.8 Absolute Neuts (auto) 4.4 Absolute Lymphs (auto) 4.02 Nucleated RBC % 0.2 Sodium 133 L Potassium 4.7 Chloride 99 Carbon Dioxide 27.0 Anion Gap 7 BUN 24 H Creatinine 1.28 H Estim Creat Clear Calc 33.99 Est GFR (MDRD) Af Amer 55 L Est GFR (MDRD) Non-Af 45 L BUN/Creatinine Ratio 18.8 Glucose 441 H Calcium 9.5 Troponin I High Sens 9 8 Radiography Diagnostic Testing: Clinical Impression(s) from Imaging Studies Chest X-Ray 11/05/22 01:46 IMPRESSION: No demonstrated acute cardiopulmonary process. Electronically Signed: Cecile Roach MD at 2:19 EST Reading Location ID and State: [facility] / [place] Tel , Service support , Rhythm Strip Rhythm Strip: Sinus Tach Rate: 110 Ectopy: None EKG Initial EKG: Attestation: I personally reviewed and interpreted this EKG as follows: Interpretation: Sinus Rhythm, No Acute Injury Pattern and LAFB Prior EKG tracings: available for review Prior: Unchanged Discharge Plan Triage Chief Complaint: Chest Pain ED Provider: Adebayo Camp Dx/Rx/DC Orders Clinical Impression: Chest pain, unspecified Instructions: ED Chest Pain, Uncertain Cause Prescriptions: No Action levothyroxine 175 mcg capsule 175 mcg PO DAILY pantoprazole 40 mg tablet,delayed release (DR/EC) 40 mg PO DAILY dextrose [Glutose-15] 40 % gel 15 g PO Q15M PRN (Reason: Blood Sugar) Rx Instructions: until symptoms of low blood sugar are controlled ranolazine 500 mg tablet extended release 12 hr 500 mg PO BID Qty: 60 11RF insulin glargine-yfgn 100 unit/mL (3 mL) insulin pen 60 unit subcut QHS mirtazapine 15 mg tablet 7.5 mg PO QHS nitroglycerin 0.4 mg tablet, sublingual 0.4 mg sublingual Q5-15M midodrine 10 mg tablet 10 mg PO BID rizatriptan 10 tablet 10 mg PO PRN PRN (Reason: Migraine Symptoms) Label Comments: (DME) pen needle,diabetic, disp unit 29 gauge x 1/2 needle See Rx Instructions .ROUTE .MEDSUPPLY Qty: 100 0RF Rx Instructions: As directed acetaminophen 500 mg Tablet 1,000 mg PO TID PRN (Reason: pain) Qty: 0 0RF polyethylene glycol 3350 17 gram Powder In Packet 17 g PO DAILY PRN PRN (Reason: constipation) Qty: 0 0RF sennosides-docusate sodium [Stool Softener-Stimulant Laxat] 8.6-50 mg Tablet 2 tab PO BID Qty: 0 0RF alprazolam 0.5 mg tablet 0.5 mg PO BID alum-mag hydroxide-simeth [Mylanta Maximum Strength] 400-400-40 mg/5 mL Suspension 15 ml PO Q4H PRN (Reason: Stomach Upset) lidocaine 4 % adhesive patch,medicated 2 patch TOPICAL DAILY Label Comments: PER PENITENTIARY MAR PT GETS 2 PATCHES APPLIED TO BACK IN THE AM AND REMOVED AFTER 12 HOURS IN THE PM. metoprolol succinate 25 mg Tablet Extended Release 24 Hr 25 mg PO DAILY Qty: 30 2RF atorvastatin 40 mg tablet 40 mg PO QHS Qty: 30 2RF aspirin [Constance Low Dose Aspirin] 81 mg tablet,delayed release (DR/EC) 81 mg PO DAILY Qty: 30 3RF ondansetron 4 mg tablet,disintegrating 4 mg PO TID PRN (Reason: nausea and vomiting) Qty: 21 0RF gabapentin 300 mg capsule 300 mg PO BID gabapentin 100 mg capsule 100 mg PO DAILY Rx Instructions: @ 1300. insulin lispro 100 unit/mL insulin pen 15 unit SUBCUT TID Rx Instructions: with meals quetiapine 50 mg tablet 50 mg PO QHS insulin lispro [Humalog KwikPen Insulin] 100 unit/mL insulin pen 14 unit subcut DAILY Rx Instructions: @ 1645 Primary Care Provider: Lizet Linares Referrals: Lizet Linares MD [Primary Care Provider] - 1-2 Days if not improving Disposition Disposition: Home, Self Care
[2022-11-05] MEDS: Mag Hydrox/Al Hydrox/Simeth 30 ML UDC PO (01:55)
[2022-11-05] MEDS: Morphine 4 MG/ML Syringe IV (01:55)
[2022-11-05] MEDS: Ondansetron 4 MG/2 ML Vial IV (01:55)
[2022-11-05 02:00] LABS: Absolute Lymphocyte Count 4.02 X10^3/uL (0.83-4.51); Absolute Neutrophil Count 4.4 X10^3/uL (2.0-7.7); Basophil# 0.07 X10^3/uL; Basophil% 0.8 % (0-1); Eosinophil# 0.15 X10^3/uL; Eosinophils% 1.7 % (0-5); Hematocrit 36.8 % (37-47); Hemoglobin 12.1 g/dL (12.0-15.0); Lymphocyte # 4.02 X10^3/ul (0.83-4.51); Lymphocyte % 44.2 % (19-41); Mean Corp Hgb Conc 32.9 g/dL (32-36); Mean Corpuscular Hgb 28.3 pg (27.0-32.0); Mean Platelet Vol. 9.7 fl (6.2-12.0); Monocyte# 0.38 X10^3/uL; Monocyte% 4.2 % (0-10); NRBC Flagged by Analyzer 0.2 % (0-5); Neutrophil # 4.43 X10^3/uL (2.7-7.7); Neutrophil % 48.7 % (47-70); Platelet Count 290 K/mm3 (150-450); RBC Distribution Width CV 13.3 % (11.6-14.6); Red Blood Count 4.28 M/mm3 (4.2-5.4); White Blood Count 9.1 K/mm3 (4.4-11.0)
[2022-11-05] MEDS: 0.9% Normal Saline 1,000 ML 150 ML IV (02:00)
[2022-11-05 02:21] LABS: Anion Gap 7 (5-15); BUN 24 mg/dL (7-18); BUN/Creat Ratio 18.8 RATIO (10-20); Calcium,Total 9.5 mg/dL (8.5-10.1); Chloride 99 mmol/L (98-107); Creatinine, Serum 1.28 mg/dL (0.55-1.02); EST Glomerular Filtration Rate 45 mL/min (>60); Est Glom Filt Rate - Afr Amer 55 mL/min (>60); Estimated Creatinine Clearance 33.99 ml/min; Glucose 441 mg/dL (74-106); Potassium 4.7 mmol/L (3.5-5.1); Sodium Level 133 mmol/L (136-145); Troponin-I HS (w/2H Reflex) 9 pg/mL (3.0-54.0)
[2022-11-05] MEDS: Dicyclomine 20 MG/2 ML Vial IM (02:57)
[2022-11-05] MEDS: LORazepam 2 MG/ML Syringe 0.5 MG IV (02:57)
[2022-11-05 03:02] VITALS: BP 131/68; PULSE 91; RESP 13; O2SAT 96
[2022-11-05 03:57] LABS: Reflex Troponin-HS? (from REC) Y
[2022-11-05 04:00] VITALS: BP 143/75; PULSE 88; RESP 13; O2SAT 94
[2022-11-05 04:27] LABS: Troponin-I HS 8 pg/mL (3.0-54.0)
[2022-11-05 04:52] VITALS: BP 143/75; PULSE 88; RESP 13; O2SAT 95
[2022-11-05 05:00] VITALS: BP 138/75; PULSE 89; RESP 19; O2SAT 95
== END 2022-11-05 06:14 | disposition home or self-care (01) ==
PROVIDERS: Emergency Provider Emergency Medicine; PCP Internal Medicine; Visit Provider Emergency Medicine
DX: R07.9 Chest pain, unspecified (principal); E11.22 Type 2 diabetes mellitus with diabetic chronic kidney disease; N18.31 Chronic kidney disease, stage 3a; E78.00 Pure hypercholesterolemia, unspecified; Z87.891 Personal history of nicotine dependence; I12.9 Hypertensive chronic kidney disease with stage 1 through stage 4 chronic kidney disease, or unspecified chronic kidney disease; M54.9 Dorsalgia, unspecified; I25.10 Atherosclerotic heart disease of native coronary artery without angina pectoris
CPT/HCPCS: 71045; 80048; 84484; 85025; 93005; 96361; 96372; 96374; 96375; 99285; J7030; A4216; J2405

== ENCOUNTER → 2022-11-10 | Outpatient (REF) | payer MEDICARE, MEDICAID, SELFPAY ==
[2022-11-10 08:14] LABS: Hematocrit 35.4 % (37-47); Hemoglobin 11.6 g/dL (12.0-15.0); Mean Corp Hgb Conc 32.8 g/dL (32-36); Mean Corpuscular Hgb 28.9 pg (27.0-32.0); Mean Corpuscular Volume 88.1 fL (81-99); Platelet Count 292 K/mm3 (150-450); RBC Distribution Width CV 13.6 % (11.6-14.6); Red Blood Count 4.02 M/mm3 (4.2-5.4); White Blood Count 7.5 K/mm3 (4.4-11.0)
[2022-11-10 08:34] LABS: Anion Gap 8 (5-15); BUN 24 mg/dL (7-18); BUN/Creat Ratio 22.6 RATIO (10-20); Calcium,Total 8.9 mg/dL (8.5-10.1); Chloride 101 mmol/L (98-107); Creatinine, Serum 1.06 mg/dL (0.55-1.02); EST Glomerular Filtration Rate 56 mL/min (>60); Est Glom Filt Rate - Afr Amer 68 mL/min (>60); Glucose 189 mg/dL (74-106); Potassium 4.4 mmol/L (3.5-5.1); Sodium Level 136 mmol/L (136-145)
[2022-11-11 09:40] LABS: Hemoglobin A1c 11.3 % (3.8-5.6)
== END ==
LOC: OLS.WHLEAS 05:35
PROVIDERS: PCP Internal Medicine; Visit Provider Internal Medicine
DX: N18.31 Chronic kidney disease, stage 3a (principal); M51.16 Intervertebral disc disorders with radiculopathy, lumbar region; E11.22 Type 2 diabetes mellitus with diabetic chronic kidney disease; E11.42 Type 2 diabetes mellitus with diabetic polyneuropathy; M62.81 Muscle weakness (generalized); R26.2 Difficulty in walking, not elsewhere classified
CPT/HCPCS: 36415; 80048; 83036; 85027

== ENCOUNTER → 2022-11-24 | Outpatient (REF) | payer MEDICARE, MEDICAID, SELFPAY ==
[2022-11-24 07:46] LABS: Hematocrit 35.8 % (37-47); Mean Corp Hgb Conc 30.7 g/dL (32-36); Mean Corpuscular Hgb 27.9 pg (27.0-32.0); Mean Corpuscular Volume 90.9 fL (81-99); Platelet Count 270 K/mm3 (150-450); RBC Distribution Width SD 46.9 fl (35.1-43.9); Red Blood Count 3.94 M/mm3 (4.2-5.4); White Blood Count 6.2 K/mm3 (4.4-11.0)
[2022-11-24 07:59] LABS: Anion Gap 7 (5-15); BUN 18 mg/dL (7-18); BUN/Creat Ratio 17.6 RATIO (10-20); Calcium,Total 8.7 mg/dL (8.5-10.1); Chloride 108 mmol/L (98-107); Creatinine, Serum 1.02 mg/dL (0.55-1.02); EST Glomerular Filtration Rate 59 mL/min (>60); Est Glom Filt Rate - Afr Amer 71 mL/min (>60); Glucose 208 mg/dL (74-106); Potassium 4.2 mmol/L (3.5-5.1); Sodium Level 141 mmol/L (136-145)
== END ==
LOC: OLS.WHLEAS 05:00
PROVIDERS: PCP Internal Medicine; Visit Provider Internal Medicine
DX: E11.22 Type 2 diabetes mellitus with diabetic chronic kidney disease (principal); E11.42 Type 2 diabetes mellitus with diabetic polyneuropathy; N18.31 Chronic kidney disease, stage 3a; M51.16 Intervertebral disc disorders with radiculopathy, lumbar region; M62.81 Muscle weakness (generalized); R26.2 Difficulty in walking, not elsewhere classified
CPT/HCPCS: 36415; 80048; 85027

== ENCOUNTER → 2022-12-08 | Outpatient (REF) | payer MEDICARE, MEDICAID, SELFPAY ==
[2022-12-08 08:16] LABS: Hematocrit 35.7 % (37-47); Hemoglobin 11.3 g/dL (12.0-15.0); Mean Corp Hgb Conc 31.7 g/dL (32-36); Mean Corpuscular Hgb 28.8 pg (27.0-32.0); Mean Corpuscular Volume 90.8 fL (81-99); Mean Platelet Vol. 9.7 fl (6.2-12.0); Platelet Count 287 K/mm3 (150-450); RBC Distribution Width CV 13.8 % (11.6-14.6); RBC Distribution Width SD 45.8 fl (35.1-43.9); Red Blood Count 3.93 M/mm3 (4.2-5.4); White Blood Count 6.6 K/mm3 (4.4-11.0)
[2022-12-08 08:32] LABS: Anion Gap 8 (5-15); BUN 25 mg/dL (7-18); BUN/Creat Ratio 26.2 RATIO (10-20); Chloride 108 mmol/L (98-107); Creatinine, Serum 0.95 mg/dL (0.55-1.02); EST Glomerular Filtration Rate 64 mL/min (>60); Est Glom Filt Rate - Afr Amer 77 mL/min (>60); Glucose 107 mg/dL (74-106); Potassium 4.5 mmol/L (3.5-5.1); Sodium Level 141 mmol/L (136-145)
== END ==
LOC: OLS.WHLEAS 05:00
PROVIDERS: PCP Internal Medicine; Visit Provider Internal Medicine
DX: E11.22 Type 2 diabetes mellitus with diabetic chronic kidney disease (principal); E11.42 Type 2 diabetes mellitus with diabetic polyneuropathy; N18.31 Chronic kidney disease, stage 3a; M51.16 Intervertebral disc disorders with radiculopathy, lumbar region; M62.81 Muscle weakness (generalized); R26.2 Difficulty in walking, not elsewhere classified
CPT/HCPCS: 36415; 80048; 85027

== ENCOUNTER → 2022-12-14 | Outpatient (REF) | payer MEDICARE, MEDICAID, SELFPAY ==
[2022-12-14 07:45] LABS: Anion Gap 8 (5-15); BUN 25 mg/dL (7-18); BUN/Creat Ratio 24.8 RATIO (10-20); Chloride 104 mmol/L (98-107); Creatinine, Serum 1.01 mg/dL (0.55-1.02); EST Glomerular Filtration Rate 60 mL/min (>60); Est Glom Filt Rate - Afr Amer 72 mL/min (>60); Glucose 170 mg/dL (74-106); Potassium 4.1 mmol/L (3.5-5.1); Sodium Level 139 mmol/L (136-145)
== END ==
LOC: OLS.WHLEAS 05:00
PROVIDERS: PCP Internal Medicine; Visit Provider Internal Medicine
DX: R53.83 Other fatigue (principal); M51.16 Intervertebral disc disorders with radiculopathy, lumbar region; E11.42 Type 2 diabetes mellitus with diabetic polyneuropathy; M62.81 Muscle weakness (generalized); R26.2 Difficulty in walking, not elsewhere classified
CPT/HCPCS: 36415; 80048

== ENCOUNTER → 2022-12-22 | Outpatient (REF) | payer MEDICARE, MEDICAID, SELFPAY ==
[2022-12-22 08:42] LABS: Hematocrit 34.5 % (37-47); Hemoglobin 10.6 g/dL (12.0-15.0); Mean Corp Hgb Conc 30.7 g/dL (32-36); Mean Corpuscular Hgb 28.3 pg (27.0-32.0); Mean Platelet Vol. 9.7 fl (6.2-12.0); Platelet Count 293 K/mm3 (150-450); RBC Distribution Width CV 13.4 % (11.6-14.6); RBC Distribution Width SD 44.8 fl (35.1-43.9); Red Blood Count 3.75 M/mm3 (4.2-5.4); White Blood Count 7.4 K/mm3 (4.4-11.0)
[2022-12-22 08:51] LABS: Anion Gap 8 (5-15); BUN 24 mg/dL (7-18); BUN/Creat Ratio 23.8 RATIO (10-20); Calcium,Total 8.8 mg/dL (8.5-10.1); Chloride 104 mmol/L (98-107); Creatinine, Serum 1.01 mg/dL (0.55-1.02); EST Glomerular Filtration Rate 60 mL/min (>60); Est Glom Filt Rate - Afr Amer 72 mL/min (>60); Glucose 169 mg/dL (74-106); Potassium 3.9 mmol/L (3.5-5.1); Sodium Level 138 mmol/L (136-145)
== END ==
LOC: OLS.WHLEAS 05:00
PROVIDERS: PCP Internal Medicine; Visit Provider Internal Medicine
DX: E11.22 Type 2 diabetes mellitus with diabetic chronic kidney disease (principal); E11.42 Type 2 diabetes mellitus with diabetic polyneuropathy; N18.31 Chronic kidney disease, stage 3a; M51.16 Intervertebral disc disorders with radiculopathy, lumbar region; M62.81 Muscle weakness (generalized); R26.2 Difficulty in walking, not elsewhere classified
CPT/HCPCS: 36415; 80048; 85027

== ENCOUNTER → 2022-12-23 | Outpatient (REF) | payer MEDICARE, MEDICAID, SELFPAY ==
[2022-12-23 11:01] LABS: Hemoglobin A1c 7.9 % (3.8-5.6)
== END ==
LOC: OLS.WHLEAS 05:00
PROVIDERS: PCP Internal Medicine; Visit Provider Internal Medicine
DX: E11.42 Type 2 diabetes mellitus with diabetic polyneuropathy (principal); M51.16 Intervertebral disc disorders with radiculopathy, lumbar region; M62.81 Muscle weakness (generalized); R26.2 Difficulty in walking, not elsewhere classified
CPT/HCPCS: 36415; 83036; 84443

== ENCOUNTER → 2022-12-28 | Outpatient (REF) | payer MEDICARE, MEDICAID, SELFPAY ==
[2022-12-28 09:00] LABS: Anion Gap 8 (5-15); BUN 20 mg/dL (7-18); BUN/Creat Ratio 20.3 RATIO (10-20); Calcium,Total 8.7 mg/dL (8.5-10.1); Chloride 103 mmol/L (98-107); Creatinine, Serum 0.99 mg/dL (0.55-1.02); EST Glomerular Filtration Rate 61 mL/min (>60); Est Glom Filt Rate - Afr Amer 74 mL/min (>60); Glucose 310 mg/dL (74-106); Potassium 3.8 mmol/L (3.5-5.1); Sodium Level 137 mmol/L (136-145)
== END ==
LOC: OLS.WHLEAS 05:00
PROVIDERS: PCP Internal Medicine; Visit Provider Internal Medicine
DX: E11.22 Type 2 diabetes mellitus with diabetic chronic kidney disease (principal); E11.42 Type 2 diabetes mellitus with diabetic polyneuropathy; N18.31 Chronic kidney disease, stage 3a; M51.16 Intervertebral disc disorders with radiculopathy, lumbar region; M62.81 Muscle weakness (generalized); R26.2 Difficulty in walking, not elsewhere classified
CPT/HCPCS: 36415; 80048

== ENCOUNTER → 2023-01-05 | Outpatient (REF) | payer MEDICARE, MEDICAID, SELFPAY ==
[2023-01-05 08:32] LABS: Mean Corp Hgb Conc 32.4 g/dL (32-36); Mean Corpuscular Hgb 29.7 pg (27.0-32.0); Mean Corpuscular Volume 91.9 fL (81-99); Mean Platelet Vol. 9.1 fl (6.2-12.0); Platelet Count 299 K/mm3 (150-450); RBC Distribution Width CV 13.9 % (11.6-14.6); RBC Distribution Width SD 46.1 fl (35.1-43.9); White Blood Count 7.1 K/mm3 (4.4-11.0)
[2023-01-05 09:16] LABS: Anion Gap 8 (5-15); BUN 21 mg/dL (7-18); BUN/Creat Ratio 21.5 RATIO (10-20); Chloride 104 mmol/L (98-107); Creatinine, Serum 0.98 mg/dL (0.55-1.02); EST Glomerular Filtration Rate 62 mL/min (>60); Est Glom Filt Rate - Afr Amer 75 mL/min (>60); Glucose 175 mg/dL (74-106); Potassium 4.1 mmol/L (3.5-5.1); Sodium Level 140 mmol/L (136-145)
== END ==
LOC: OLS.WHLEAS 05:00
PROVIDERS: PCP Internal Medicine; Referring Provider Family Medicine; Visit Provider Family Medicine
DX: E11.22 Type 2 diabetes mellitus with diabetic chronic kidney disease (principal); E11.42 Type 2 diabetes mellitus with diabetic polyneuropathy; N18.31 Chronic kidney disease, stage 3a; M51.16 Intervertebral disc disorders with radiculopathy, lumbar region; M62.81 Muscle weakness (generalized); R26.2 Difficulty in walking, not elsewhere classified
CPT/HCPCS: 36415; 80048; 85027

== ENCOUNTER 2023-01-06 17:23 | Emergency (ER) | payer MEDICARE, MEDICAID, SELFPAY ==
[2023-01-06 17:24] VITALS: BP 160/79; PULSE 93; RESP 17; TEMP 36.6; O2SAT 99
[2023-01-06 17:27] VITALS: BP 160/79; PULSE 93; RESP 17; TEMP 36.6; O2SAT 99
[2023-01-06 17:40] VITALS: BMI 36.0
--- NOTE | 2023-01-06 17:48 | CT_ITS ---
STUDY: CT Abdomen And Pelvis W/O Contrast Injection 01/06/2023 6:59 PM REASON FOR EXAM: Female, 57 years old. History of kidney stones, cholecystectomy, tubal ligation, hysterectomy. pain right flank pain Individualized dose optimization techniques were used for this CT. COMPARISON: 10.09.22. TECHNIQUE: CT Abdomen And Pelvis W/O Contrast Injection FINDINGS: There are atherosclerotic calcifications of visualized coronary arteries. The visualized portions of the heart are within normal limits. Stable granuloma of the liver. There is non-visualization of the gallbladder, which may be secondary to either contraction or a prior cholecystectomy. Normal spleen. Normal pancreas. There is dilation of the common bile duct. A common bile duct stone is not seen. The CBD diameter is 13 mm. Normal bilateral adrenal glands. Non obstructive 2 mm right renal parenchymal stones. No acute findings of the left kidney. Normal visualized stomach. Normal small intestine. Stool throughout the colon. The appendix is visualized and appears normal. There are calcifications of the abdominal aorta. This is consistent for atherosclerotic disease. There is NO abdominal aortic aneurysm. Vascular workup can be obtained based on clinical correlation. Normal inferior vena cava. Subcentimeter mesenteric lymph nodes. Normal urinary bladder. There is an umbilical hernia containing fat. There are diffuse degenerative changes of the visualized lumbar spine. L4-5 with a large literature teacher disc bulge osteophyte causing severe spinal stenosis. CT/Abdomen/Pelvis without Cont IMPRESSION: (NOT LISTED IN ORDER OF SIGNIFICANCE) Non obstructive 2 mm right renal parenchymal stones. L4-5 with a large literature teacher disc bulge osteophyte causing severe spinal stenosis. Other findings as above. Electronically Signed: Conner Caldera MD at 19:08 EDT ,
--- NOTE | 2023-01-06 17:49 | EX.ED.DYSGE1 ---
HPI History of Present Illness Chief Complaint: Flank Pain Detail of Chief Complaint: Right flank pain Informant: patient Narrative Narrative: Patient presents the emergency department complaint of right-sided flank pain that started this morning around 11 AM. Patient states it woke her up from sleep. Patient rates her pain an 8 out of 10 currently. Patient states the pain radiates to the front of the lower abdomen. Patient's had similar pain in the past when she had a kidney stone. She denies fevers or chills or sweats. She denies hematuria or frequency although she has had some urgency. She describes some mild nausea. Prior similar symptoms: Yes [facility] Medical History Carpal tunnel syndrome Chronic back pain Chronic renal failure, stage 3a CKD (chronic kidney disease) stage 3, GFR 30-59 ml/min Contusion of great toe, right Contusion of knee Depression Depressive disorder Diabetes Difficulty in walking, not elsewhere classified Elevated troponin Essential hypertension Fatigue Former smoker History of left heart catheterization (LHC) (~05/21/22) HTN (hypertension) Hyperlipidemia Hypokalemia Hypothyroidism Infection of tooth Intervertebral disc disorder with radiculopathy of lumbar region Kidney disease Kidney stones Migraines Normochromic normocytic anemia Obesity (BMI 35.0-39.9 without comorbidity) Opiate abuse, continuous Orthostatic hypotension Pure hypercholesterolemia Renal insufficiency Stomach ulcer Thyroid disease Type II diabetes mellitus, uncontrolled Home Medications rizatriptan 10 mg tablet 10 mg PO PRN PRN Migraine Symptoms 12/27/17 [History Last Taken Unknown] pen needle,diabetic, disp unit 29 gauge x 1/2, remover and disposal unit #100 ea 06/23/21 [Rx Last Taken Unknown] acetaminophen 500 mg tablet 1,000 mg PO TID PRN pain #0 tabs 03/27/22 [Rx Last Taken 04/23/22 16:40] polyethylene glycol 3350 17 gram oral powder packet 17 g PO DAILY PRN PRN constipation #0 ea 03/27/22 [Rx Last Taken Unknown] sennosides 8.6 mg-docusate sodium 50 mg tablet (Stool Softener-Stimulant Laxative) 2 tab PO BID #0 tabs 03/27/22 [Rx Last Taken Unknown] aluminum-mag hydroxide-simethicone 400 mg-400 mg-40 mg/5 mL oral susp (Mylanta Maximum Strength) 15 ml PO Q4H PRN Stomach Upset 04/24/22 [History Last Taken 04/24/22] aspirin 81 mg tablet,delayed release (Constance Low Dose Aspirin) 81 mg PO DAILY #30 tabs 05/21/22 [Rx Last Taken Unknown] atorvastatin 40 mg tablet 40 mg PO QHS #30 tabs 05/21/22 [Rx Last Taken Unknown] metoprolol succinate 25 mg tablet,extended release 24 hr 25 mg PO DAILY #30 tabs 05/21/22 [Rx Last Taken Unknown] dextrose 40 % oral gel (Glutose-15) 15 g PO Q15M PRN Blood Sugar 06/12/22 [History Last Taken Unknown] levothyroxine 175 mcg capsule 175 mcg PO DAILY 06/12/22 [History Last Taken Unknown] lidocaine 4 % topical patch 2 patch topical DAILY Back Pain 06/12/22 [History Last Taken Unknown] pantoprazole 40 mg tablet,delayed release 40 mg PO DAILY 06/12/22 [History Last Taken Unknown] ranolazine 500 mg tablet,extended release,12 hr 500 mg PO BID #60 tabs 06/12/22 [Rx Last Taken Unknown] insulin glargine-yfgn 100 unit/mL (3 mL) subcutaneous pen 60 unit subcut QHS 09/09/22 [History Last Taken Unknown] midodrine 10 mg tablet 10 mg PO BID 09/09/22 [History Last Taken Unknown] mirtazapine 15 mg tablet 7.5 mg PO QHS 09/09/22 [History Last Taken Unknown] nitroglycerin 0.4 mg sublingual tablet 0.4 mg sublingual Q5-15M 09/09/22 [History Last Taken Unknown] ondansetron 4 mg disintegrating tablet 4 mg PO TID PRN nausea and vomiting #21 tabs 10/09/22 [Rx Last Taken Unknown] gabapentin 100 mg capsule 100 mg PO DAILY 11/05/22 [History Last Taken Unknown] gabapentin 300 mg capsule 300 mg PO BID 11/05/22 [History Last Taken Unknown] insulin lispro 100 unit/mL subcutaneous pen 15 unit subcut TID 11/05/22 [History Last Taken Unknown] insulin lispro 100 unit/mL subcutaneous pen (Humalog KwikPen (U-100) Insulin) 14 unit subcut DAILY 11/05/22 [History Last Taken Unknown] quetiapine 50 mg tablet 50 mg PO QHS 11/05/22 [History Last Taken Unknown] hydrocodone-acetaminophen 5-325mg 5mg-325mg 1 tab PO Q4H PRN PRN Pain 2 days #10 TABLETS 01/06/23 [Rx Last Taken Unknown] Allergy/AdvReac Type Severity Reaction Status Date / Time celecoxib [From Celebrex] Allergy Itching Verified 01/06/23 17:24 ciprofloxacin [From Cipro] Allergy Swelling Verified 01/06/23 17:24 ciprofloxacin HCl Allergy Swelling Verified 01/06/23 17:24 [From Cipro] codeine Allergy Hives Verified 01/06/23 17:24 ibuprofen Allergy Hives Verified 01/06/23 17:24 naproxen Allergy Hives Verified 01/06/23 17:24 Penicillins Allergy Hives Verified 01/06/23 17:24 tramadol HCl [From Ultram] Allergy Hives Verified 01/06/23 17:24 ketorolac [From Toradol] AdvReac Swelling Verified 01/06/23 17:24 Family History Other CVA (cerebral vascular accident) Cancer Diabetes Myocardial infarction Surgical History H/O: hysterectomy Hx of section S/P trigger finger release Social History household members: other details: currently living in a NH for therapy for chronic back pain housing: halfway Smoking Status: Former smoker Tobacco: How many years used: 46 how long ago did patient quit smoking: She quit smoking in August or September of 2021. She started smoking at 14 alcohol intake: never substance use type: other details: has a hx of chronic opioid use ROS ROS ED Review of Systems ROS Unobtainable: other Constitutional Constitutional ED: Reports lethargy; Denies chills, fever(s), sweats or weight loss Eyes Eyes: Denies blurry vision, change in vision or diplopia ENT ENT ED: Denies rhinorrhea or sore throat Cardiovascular Cardiovascular: Denies chest pain, orthopnea or racing heartbeat Respiratory/Chest Respiratory/Chest: Denies cough, dyspnea, dyspnea on exertion, orthopnea or sputum Gastrointestinal Gastrointestinal: Reports abdominal pain and nausea; Denies diarrhea or vomiting Genitourinary Genitourinary ED: Denies dysuria, hematuria or urinary frequency Musculoskeletal Musculoskeletal: Reports back pain; Denies arthralgias, myalgias or neck pain Integumentary Denies abscess, Abrasions or rash Neurologic Neurologic: Denies headache(s) or weakness Psychiatric Psychiatric: Denies anxiety, depression or suicidal thoughts Endocrine Endocrinology: Denies polydipsia, polyphagia or polyuria Hematologic/Lymphatic Hematologic/Lymphatic: Denies easy bleeding, easy bruising or lymphadenopathy Allergic/Immunologic Allergic/Immunologic ED: Denies mouth swelling, tongue swelling or urticaria EXAM Physical Exam Const Vital Signs: 01/06/23 17:24 01/06/23 17:27 Temperature 98 F 98 F Temperature Source Temporal Temporal Pulse Rate 93 93 Respiratory Rate 17 17 Blood Pressure 160/79 H 160/79 H Blood Pressure Mean 106 106 Pulse Ox 99 99 Oxygen Delivery Method Room Air Room Air Positive well nourished and well developed General Appearance ED: well developed and NAD HEENT Reports TM's clear and moist mucous membranes normocephalic and atraumatic; Negative for trauma or tenderness Tympanic Membrane ED: Yes TM's clear Eyes PERRL and EOMs intact bilaterally General Eye ED: Negative for pale conjunctiva or scleral icterus Neck no lymphadenopathy, supple and no JVD General: Negative for tenderness Chest Wall inspection of chest normal and palpation of chest normal Chest: Negative for tenderness Resp normal respiratory effort and clear to auscultation bilaterally Effort and Inspection: Negative for respiratory distress or pain with movement Auscultation: Negative for rhonchi, wheezes or diminished lung sounds Cardio regular rate, regular rhythm, S1 normal heart sound, S2 normal heart sound and no murmurs Peripheral Pulses: pulses 2+ throughout GI normal to inspection, nondistended, normoactive bowel sounds, soft to palpation, non-distended and no masses GI Narrative: Mild tenderness over right lower quadrant with some guarding. There is no rebound, rigidity, or peritoneal signs. No mass palpated. Back/Spine no thoracic nor lumbar tenderness Back/Spine Narrative: CVA tenderness on the right. Extremity normal to inspection General Extremety ED: Negative for edema General Extremity: Negative for edema Neuro oriented x3, CN's II-XII intact bilaterally, no sensory deficits noted and gait normal Sensorium / Orientation: awake, alert, oriented to person, oriented to place and oriented to time Motor Exam: strength 5/5 throughout and strength abnormal Psych mental status grossly normal Skin no rashes or lesions noted and no wounds MDM MDM MDM Narrative Medical decision making narrative: Scented with right flank pain that she thought consistent with a kidney stone. She denied any radiculopathic pain. IV line established. Patient was medicated morphine and Zofran. Patient had a CBC with differential that was unremarkable and chemistries that were unremarkable. Glucose was elevated 170. Urinalysis was normal. CT flank obtained showed no evidence of urolithiasis. She did have a dilated common bile duct at 13 mm and she has had prior cholecystectomy. There is no evidence of common bile duct stone. Patient also was noted to have L4-5 large posterior disc bulge osteophyte causing spinal stenosis. At this point patient will be discharged to home with a prescription for few [place]. Etiology of her pain is unclear. She does not have any radiculopathic signs or symptoms. Patient to follow-up with her primary care physician within next 3 to 5 days. She is to return if worsening pain, fever, vomiting, weakness in extremities, change in bowel or bladder function, or condition worsen anyway. Lab Data Attestation: I reviewed the patient's lab results. Labs: Laboratory Results - last 24 hr 01/06/23 01/06/23 01/06/23 18:00 18:00 18:30 WBC 6.5 RBC 4.01 L Hgb 11.6 L Hct 36.4 L MCV 90.8 MCH 28.9 MCHC 31.9 L RDW Std Deviation 44.8 H RDW Coeff of Anisa 13.6 Plt Count 295 MPV 9.1 Immature Gran % (Auto) 0.300 Neut % (Auto) 53.1 Lymph % (Auto) 38.7 [place] % (Auto) 5.7 Eos % (Auto) 1.7 Baso % (Auto) 0.5 Absolute Neuts (auto) 3.4 Absolute Lymphs (auto) 2.51 Nucleated RBC % 0 Sodium 139 Potassium 4.6 Chloride 103 Carbon Dioxide 28.0 Anion Gap 8 BUN 22 H Creatinine 0.93 Estim Creat Clear Calc 46.78 Est GFR (MDRD) Af Amer 79 Est GFR (MDRD) Non-Af 65 BUN/Creatinine Ratio 23.6 H Glucose 170 H Calcium 9.2 Urine Color Yellow Urine Clarity Clear Urine pH 7.0 Ur Specific [place] 1.010 Urine Protein Negative Urine Glucose (UA) Normal Urine Ketones Negative Urine Occult Blood Negative Urine Nitrite Negative Urine Bilirubin Negative Urine Urobilinogen Normal Ur Leukocyte Esterase Negative Urine RBC 0 SEEN Urine WBC 0 SEEN Ur Squamous Epith Cells 0 SEEN Urine Bacteria 0 SEEN Urine Mucus 0 SEEN Radiography Diagnostic Testing: Clinical Impression(s) from Imaging Studies Abdomen/Pelvis CT 01/06/23 17:48 IMPRESSION: (NOT LISTED IN ORDER OF SIGNIFICANCE) Non obstructive 2 mm right renal parenchymal stones. L4-5 with a large inspector golf ball disc bulge osteophyte causing severe spinal stenosis. Other findings as above. Electronically Signed: Conner Caldera MD at 19:08 EDT Reading Location ID and State: [facility] / [place] , Service support , Discharge Plan Triage Chief Complaint: Flank Pain ED Provider: Olena Govea Dx/Rx/DC Orders Clinical Impression: Acute flank pain Instructions: ED Flank Pain, Uncertain Cause Prescriptions: New hydrocodone-acetaminophen [hydrocodone-acetaminophen] 5-325 mg tablet 1 tab PO Q4H PRN PRN (Reason: Pain) 2 Days Qty: 10 0RF No Action levothyroxine 175 mcg capsule 175 mcg PO DAILY pantoprazole 40 mg tablet,delayed release (DR/EC) 40 mg PO DAILY dextrose [Glutose-15] 40 % gel 15 g PO Q15M PRN (Reason: Blood Sugar) Rx Instructions: until symptoms of low blood sugar are controlled ranolazine 500 mg tablet extended release 12 hr 500 mg PO BID Qty: 60 11RF insulin glargine-yfgn 100 unit/mL (3 mL) insulin pen 60 unit subcut QHS mirtazapine 15 mg tablet 7.5 mg PO QHS nitroglycerin 0.4 mg tablet, sublingual 0.4 mg sublingual Q5-15M midodrine 10 mg tablet 10 mg PO BID rizatriptan 10 tablet 10 mg PO PRN PRN (Reason: Migraine Symptoms) Label Comments: (DME) pen needle,diabetic, disp unit 29 gauge x 1/2 needle See Rx Instructions .ROUTE .MEDSUPPLY Qty: 100 0RF Rx Instructions: As directed acetaminophen 500 mg Tablet 1,000 mg PO TID PRN (Reason: pain) Qty: 0 0RF polyethylene glycol 3350 17 gram Powder In Packet 17 g PO DAILY PRN PRN (Reason: constipation) Qty: 0 0RF sennosides-docusate sodium [Stool Softener-Stimulant Laxat] 8.6-50 mg Tablet 2 tab PO BID Qty: 0 0RF alum-mag hydroxide-simeth [Mylanta Maximum Strength] 400-400-40 mg/5 mL Suspension 15 ml PO Q4H PRN (Reason: Stomach Upset) lidocaine 4 % adhesive patch,medicated 2 patch TOPICAL DAILY Label Comments: PER PRISON MAR PT GETS 2 PATCHES APPLIED TO BACK IN THE AM AND REMOVED AFTER 12 HOURS IN THE PM. metoprolol succinate 25 mg Tablet Extended Release 24 Hr 25 mg PO DAILY Qty: 30 2RF atorvastatin 40 mg tablet 40 mg PO QHS Qty: 30 2RF aspirin [Constance Low Dose Aspirin] 81 mg tablet,delayed release (DR/EC) 81 mg PO DAILY Qty: 30 3RF ondansetron 4 mg tablet,disintegrating 4 mg PO TID PRN (Reason: nausea and vomiting) Qty: 21 0RF gabapentin 300 mg capsule 300 mg PO BID gabapentin 100 mg capsule 100 mg PO DAILY Rx Instructions: @ 1300. insulin lispro 100 unit/mL insulin pen 15 unit SUBCUT TID Rx Instructions: with meals quetiapine 50 mg tablet 50 mg PO QHS insulin lispro [Humalog KwikPen Insulin] 100 unit/mL insulin pen 14 unit subcut DAILY Rx Instructions: @ 1645 Primary Care Provider: Lizet Linares Referrals: Lizet Linares MD [Primary Care Provider] - 3-5 Days Disposition Disposition: Home, Self Care
[2023-01-06 18:08] LABS: Absolute Lymphocyte Count 2.51 X10^3/uL (0.83-4.51); Absolute Neutrophil Count 3.4 X10^3/uL (2.0-7.7); Basophil# 0.03 X10^3/uL; Basophil% 0.5 % (0-1); Eosinophil# 0.11 X10^3/uL; Eosinophils% 1.7 % (0-5); Hematocrit 36.4 % (37-47); Hemoglobin 11.6 g/dL (12.0-15.0); Lymphocyte # 2.51 X10^3/ul (0.83-4.51); Lymphocyte % 38.7 % (19-41); Mean Corp Hgb Conc 31.9 g/dL (32-36); Mean Corpuscular Hgb 28.9 pg (27.0-32.0); Mean Corpuscular Volume 90.8 fL (81-99); Mean Platelet Vol. 9.1 fl (6.2-12.0); Monocyte# 0.37 X10^3/uL; Monocyte% 5.7 % (0-10); NRBC Flagged by Analyzer 0 % (0-5); Neutrophil # 3.44 X10^3/uL (2.7-7.7); Neutrophil % 53.1 % (47-70); Platelet Count 295 K/mm3 (150-450); RBC Distribution Width CV 13.6 % (11.6-14.6); RBC Distribution Width SD 44.8 fl (35.1-43.9); Red Blood Count 4.01 M/mm3 (4.2-5.4); White Blood Count 6.5 K/mm3 (4.4-11.0)
[2023-01-06] MEDS: Ondansetron 4 MG/2 ML Vial IV (18:15)
[2023-01-06] MEDS: 0.9% Normal Saline 1,000 ML 150 ML IV (18:15)
[2023-01-06] MEDS: Morphine 4 MG/ML Syringe IV (18:15)
[2023-01-06 18:43] LABS: Bacteria 0 SEEN /hpf (None Seen); Mucous, Urine 0 SEEN /hpf (<or=2+); Red Blood Cells-Urine 0 SEEN /hpf (0-5); Squamous Epithelial Cells - UA 0 SEEN /hpf (5-10); White Blood Cells 0 SEEN /hpf (0-5)
[2023-01-06 18:45] LABS: Color, Urine Yellow (Yellow); Glucose, Dipstick Normal (Normal); Ketone-Dipstick Negative (Negative); Leukocyte Esterase-Dipstick Negative /ul (Negative); Nitrite-Dipstick Negative (Negative); Occult Blood-Urine Negative /ul (Negative); Protein-Dipstick Negative (Negative); Urine Bilirubin Dipstick Negative (Negative); Urine Clarity Clear (Clear); Urine Urobilinogen Normal (Normal)
[2023-01-06 18:59] LABS: Anion Gap 8 (5-15); BUN 22 mg/dL (7-18); BUN/Creat Ratio 23.6 RATIO (10-20); Calcium,Total 9.2 mg/dL (8.5-10.1); Chloride 103 mmol/L (98-107); Creatinine, Serum 0.93 mg/dL (0.55-1.02); EST Glomerular Filtration Rate 65 mL/min (>60); Est Glom Filt Rate - Afr Amer 79 mL/min (>60); Estimated Creatinine Clearance 46.78 ml/min; Glucose 170 mg/dL (74-106); Potassium 4.6 mmol/L (3.5-5.1); Sodium Level 139 mmol/L (136-145)
[2023-01-06 20:30] VITALS: BP 145/59; PULSE 84; RESP 19; O2SAT 94
== END 2023-01-06 21:07 | disposition home or self-care (01) ==
PROVIDERS: Emergency Provider Emergency Medicine; PCP Internal Medicine; Visit Provider Emergency Medicine
DX: R10.9 Unspecified abdominal pain (principal); E11.22 Type 2 diabetes mellitus with diabetic chronic kidney disease; N18.31 Chronic kidney disease, stage 3a; M54.9 Dorsalgia, unspecified; E78.5 Hyperlipidemia, unspecified; Z87.891 Personal history of nicotine dependence; K83.8 Other specified diseases of biliary tract; I12.9 Hypertensive chronic kidney disease with stage 1 through stage 4 chronic kidney disease, or unspecified chronic kidney disease; E78.00 Pure hypercholesterolemia, unspecified
CPT/HCPCS: 74176; 80048; 81001; 85025; 96361; 96374; 96375; 99283; J7030; A4216; J2405

== ENCOUNTER 2023-01-07 15:16 | Emergency (ER) | payer MEDICARE, MEDICAID, SELFPAY ==
[2023-01-07 15:17] VITALS: BP 143/70; PULSE 95; RESP 18; TEMP 35.5; O2SAT 99
[2023-01-07 15:19] VITALS: BMI 36.2
[2023-01-07] MEDS: morphine 10 MG/ML Syringe 8 MG IM (15:54)
--- NOTE | 2023-01-07 16:00 | EDS_ITS ---
HPI History of Present Illness Chief Complaint: Flank Pain Informant: patient Onset/Context/Timing Onset: Today and Yesterday Context: Gradual Onset Timing: Continuous Quality: Dull and Aching Current Severity: Mild Maximum Severity: Mild Worsened by: improves with Nothing Relieved by: Nothing Associated Symptoms Associated Symptoms: Negative for Numbness, Tingling, Radiation to Left Leg, Fever, Abdominal Pain, Dysuria, Unable to Ambulate, Unable to Transfer, Urinary Retention, Urinary Incontinence, Constipation or Fecal Incontinence Narrative Narrative: 57-year-old female past medical history of chronic kidney disease, back pain but no prior back surgery, diabetes, hypertension, prior kidney stone. She has had a hysterectomy with salpingo-oophorectomy. And cholecystectomy. Complaining of right flank pain. Was seen in this emergency department yesterday had a significant work-up including blood work which was unremarkable urinalysis which was negative for any signs of infection and a CAT scan which showed a right renal stone but no acute ureteral calculi and also bulging L4-5 disc. She denies any radiation to her legs. She denies any weakness. She denies any dysuria or hematuria. She was written for Lometa for pain they told her she could not take it because she has a codeine allergy so she has not been on pain meds and needs pain relief. Otherwise her symptoms have not changed. Prior similar symptoms: Yes Recent Illness/Hospitalization: No PFSH PFSH Medical History Carpal tunnel syndrome Chronic back pain Chronic renal failure, stage 3a CKD (chronic kidney disease) stage 3, GFR 30-59 ml/min Contusion of great toe, right Contusion of knee Depression Depressive disorder Diabetes Difficulty in walking, not elsewhere classified Elevated troponin Essential hypertension Fatigue Former smoker History of left heart catheterization (LHC) (~05/21/22) HTN (hypertension) Hyperlipidemia Hypokalemia Hypothyroidism Infection of tooth Intervertebral disc disorder with radiculopathy of lumbar region Kidney disease Kidney stones Migraines Normochromic normocytic anemia Obesity (BMI 35.0-39.9 without comorbidity) Opiate abuse, continuous Orthostatic hypotension Pure hypercholesterolemia Renal insufficiency Stomach ulcer Thyroid disease Type II diabetes mellitus, uncontrolled Home Medications rizatriptan 10 mg tablet 10 mg PO PRN PRN Migraine Symptoms 12/27/17 [History Last Taken Unknown] pen needle,diabetic, disp unit 29 gauge x /2, remover and disposal unit #100 ea 06/23/21 [Rx Last Taken Unknown] acetaminophen 500 mg tablet 1,000 mg PO TID PRN pain #0 tabs 03/27/22 [Rx Last Taken 04/23/22 16:40] polyethylene glycol 3350 17 gram oral powder packet 17 g PO DAILY PRN PRN constipation #0 ea 03/27/22 [Rx Last Taken Unknown] sennosides 8.6 mg-docusate sodium 50 mg tablet (Stool Softener-Stimulant Laxative) 2 tab PO BID #0 tabs 03/27/22 [Rx Last Taken Unknown] aluminum-mag hydroxide-simethicone 400 mg-400 mg-40 mg/5 mL oral susp (Mylanta Maximum Strength) 15 ml PO Q4H PRN Stomach Upset 04/24/22 [History Last Taken 04/24/22] aspirin 81 mg tablet,delayed release (Constance Low Dose Aspirin) 81 mg PO DAILY #30 tabs 05/21/22 [Rx Last Taken Unknown] atorvastatin 40 mg tablet 40 mg PO QHS #30 tabs 05/21/22 [Rx Last Taken Unknown] metoprolol succinate 25 mg tablet,extended release 24 hr 25 mg PO DAILY #30 tabs 05/21/22 [Rx Last Taken Unknown] dextrose 40 % oral gel (Glutose-15) 15 g PO Q15M PRN Blood Sugar 06/12/22 [History Last Taken Unknown] levothyroxine 175 mcg capsule 175 mcg PO DAILY 06/12/22 [History Last Taken Unknown] lidocaine 4 % topical patch 2 patch topical DAILY Back Pain 06/12/22 [History Last Taken Unknown] pantoprazole 40 mg tablet,delayed release 40 mg PO DAILY 06/12/22 [History Last Taken Unknown] ranolazine 500 mg tablet,extended release,12 hr 500 mg PO BID #60 tabs 06/12/22 [Rx Last Taken Unknown] insulin glargine-yfgn 100 unit/mL (3 mL) subcutaneous pen 60 unit subcut QHS 09/09/22 [History Last Taken Unknown] midodrine 10 mg tablet 10 mg PO BID 09/09/22 [History Last Taken Unknown] mirtazapine 15 mg tablet 7.5 mg PO QHS 09/09/22 [History Last Taken Unknown] nitroglycerin 0.4 mg sublingual tablet 0.4 mg sublingual Q5-15M 09/09/22 [History Last Taken Unknown] ondansetron 4 mg disintegrating tablet 4 mg PO TID PRN nausea and vomiting #21 tabs 10/09/22 [Rx Last Taken Unknown] gabapentin 100 mg capsule 100 mg PO DAILY 11/05/22 [History Last Taken Unknown] gabapentin 300 mg capsule 300 mg PO BID 11/05/22 [History Last Taken Unknown] insulin lispro 100 unit/mL subcutaneous pen 15 unit subcut TID 11/05/22 [History Last Taken Unknown] insulin lispro 100 unit/mL subcutaneous pen (Humalog KwikPen (U-100) Insulin) 14 unit subcut DAILY 11/05/22 [History Last Taken Unknown] quetiapine 50 mg tablet 50 mg PO QHS 11/05/22 [History Last Taken Unknown] hydrocodone-acetaminophen 5-325mg 5mg-325mg 1 tab PO Q4H PRN PRN Pain 2 days #10 TABLETS 01/06/23 [Rx Last Taken Unknown] oxycodone-acetaminophen 5 mg-325 mg tablet (Percocet) 1 tab PO Q4H PRN pain 4 days #12 tabs 01/07/23 [Rx Last Taken Unknown] Allergy/AdvReac Type Severity Reaction Status Date / Time celecoxib [From Celebrex] Allergy Itching Verified 01/07/23 15:19 ciprofloxacin [From Cipro] Allergy Swelling Verified 01/07/23 15:19 ciprofloxacin HCl Allergy Swelling Verified 01/07/23 15:19 [From Cipro] codeine Allergy Hives Verified 01/07/23 15:19 ibuprofen Allergy Hives Verified 01/07/23 15:19 naproxen Allergy Hives Verified 01/07/23 15:19 Penicillins Allergy Hives Verified 01/07/23 15:19 tramadol HCl [From Ultram] Allergy Hives Verified 01/07/23 15:19 ketorolac [From Toradol] AdvReac Swelling Verified 01/07/23 15:19 Family History Other CVA (cerebral vascular accident) Cancer Diabetes Myocardial infarction Surgical History H/O: hysterectomy Hx of section S/P trigger finger release Social History household members: other details: currently living in a NH for therapy for chronic back pain [facility] Smoking Status: Former smoker Tobacco: How many years used: 46 how long ago did patient quit smoking: She quit smoking in August or September of 2021. She started smoking at 14 alcohol intake: never substance use type: other details: has a hx of chronic opioid use ROS ROS ED ROS Narrative Right flank pain. No dysuria. No hematuria. No fever. Review of Systems ROS Unobtainable: Denies due to encephalopathy Constitutional Constitutional ED: Denies chills or fever(s) Eyes Eyes: Denies blurry vision ENT ENT ED: Denies ear pain Cardiovascular Cardiovascular: Denies chest pain Respiratory/Chest Respiratory/Chest: Denies dyspnea Gastrointestinal Gastrointestinal: Reports diarrhea; Denies abdominal pain, constipation, melena, nausea or vomiting Genitourinary Genitourinary ED: Denies dysuria or hematuria Musculoskeletal Musculoskeletal: Reports back pain; Denies arthralgias Integumentary Denies abscess or Abrasions Neurologic Neurologic: Denies headache(s) Psychiatric Psychiatric: Denies anxiety Endocrine Endocrinology: Denies cold intolerance Hematologic/Lymphatic Hematologic/Lymphatic: Denies easy bleeding or easy bruising EXAM Physical Exam Narrative Exam Narrative: 57-year-old female no acute distress. Vital signs are stable afebrile. She does not look septic, toxic or in distress. H EENT exam unremarkable. Moist mucous membranes. Neck nontender. Lungs clear to auscultation bilaterally. Heart regular rate and rhythm rate about 90 no murmur. Chest wall and ribs nontender. No signs of trauma. Abdomen soft. Nondistended normal bowel sounds. No peritoneal signs. No hernia or mass. No pulsatile mass. Reproducible right flank tenderness. But no ecchymosis or bruising. No signs of trauma. Back and spine are nontender. Neurologically she is awake alert answering questions following commands. She is moving all 4 extremities. She has Austyn wrap's on both lower legs. Dorsi plantarflexion intact. Normal motor strength. Normal sensation. No cauda equina. Const Vital Signs: 01/07/23 15:17 Temperature 96 F L Temperature Source Temporal Pulse Rate 95 Respiratory Rate 18 Blood Pressure 143/70 H Blood Pressure Mean 94 Pulse Ox 99 Oxygen Delivery Method Room Air Positive well nourished and well developed; Negative for cachectic, contractures or unkempt General Appearance ED: well developed and NAD; Negative for unkempt, cachectic or contractures Nutritional Appearance: Negative for cachectic HEENT Reports moist mucous membranes Negative for trauma or tenderness Eyes PERRL and EOMs intact bilaterally General Eye ED: Negative for pale conjunctiva or scleral icterus Neck no lymphadenopathy, supple and no JVD General: Negative for tenderness Thyroid: Negative for other Resp normal respiratory effort and clear to auscultation bilaterally Effort and Inspection: Negative for pain with movement Auscultation: Negative for rales, rhonchi or wheezes Cardio regular rhythm, S1 normal heart sound, S2 normal heart sound and no murmurs Palpation: Negative for palpable S3 Rate: Negative for bradycardia Rhythm: Negative for abnormal rhythm GI normal to inspection, nondistended, normoactive bowel sounds, soft to palpation, non-tender, non-distended and no masses Inspection: Negative for abdominal distention Palpation: Negative for tender or guarding Back/Spine normal to inspection and no thoracic nor lumbar tenderness Back/Spine Narrative: Mild reproducible right flank tenderness. No signs of trauma. No rib pain or crepitance. Extremity Negative for no clubbing, cyanosis or edema Extremity Narrative: Austyn wrap's both lower extremities. Neurovascular intact. Normal dorsi plantarflexion. No cauda equina. Neuro oriented x3 Sensorium / Orientation: alert; Negative for confused, lethargic or stuporous Motor Exam: strength 5/5 throughout Psych mental status grossly normal Appearance: Negative for unkempt Attitude: No agitated Mood & Affect: Negative for depressed Skin no rashes or lesions noted and no wounds General Skin Exam: Negative for jaundice Lesions: No lesion noted Rashes: No rashes noted Trauma: Negative for abrasion or puncture Wounds: Negative for wounds noted MDM MDM MDM Narrative Medical decision making narrative: 57-year-old female with right flank pain. Was seen evaluated yesterday. Had a negative work-up including labs, urinalysis and CAT scan except the CAT scan did show bulging L4-5 disc. Showed no acute ureteral calculi. There was a stone in the kidney. She had no signs of urinary tract infection. A prescription was written for Lometa which they would not let [facility]. She can take Percocet. She will get an IM injection here morphine. I reviewed her evaluation from yesterday. I do not think she needs any further testing. I will write her a prescription for 12 Percocet. Lab Data Attestation: I reviewed the patient's lab results. Lab results narrative: I reviewed the patient's test and CAT scan from yesterday. Discharge Plan Triage Chief Complaint: Flank Pain ED Provider: Bronson Retana Dx/Rx/DC Orders Clinical Impression: Acute right flank pain, History of diabetes mellitus, Degenerative disc disease Instructions: ED Back Pain (Acute or Chronic) Prescriptions: New oxycodone-acetaminophen [Percocet] 5-325 mg tablet 1 tab PO Q4H PRN (Reason: pain) 4 Days Qty: 12 0RF No Action levothyroxine 175 mcg capsule 175 mcg PO DAILY pantoprazole 40 mg tablet,delayed release (DR/EC) 40 mg PO DAILY dextrose [Glutose-15] 40 % gel 15 g PO Q15M PRN (Reason: Blood Sugar) Rx Instructions: until symptoms of low blood sugar are controlled ranolazine 500 mg tablet extended release 12 hr 500 mg PO BID Qty: 60 11RF insulin glargine-yfgn 100 unit/mL (3 mL) insulin pen 60 unit subcut QHS mirtazapine 15 mg tablet 7.5 mg PO QHS nitroglycerin 0.4 mg tablet, sublingual 0.4 mg sublingual Q5-15M midodrine 10 mg tablet 10 mg PO BID rizatriptan 10 tablet 10 mg PO PRN PRN (Reason: Migraine Symptoms) Label Comments: (DME) pen needle,diabetic, disp unit 29 gauge x 1/2 needle See Rx Instructions .ROUTE .MEDSUPPLY Qty: 100 0RF Rx Instructions: As directed acetaminophen 500 mg Tablet 1,000 mg PO TID PRN (Reason: pain) Qty: 0 0RF polyethylene glycol 3350 17 gram Powder In Packet 17 g PO DAILY PRN PRN (Reason: constipation) Qty: 0 0RF sennosides-docusate sodium [Stool Softener-Stimulant Laxat] 8.6-50 mg Tablet 2 tab PO BID Qty: 0 0RF alum-mag hydroxide-simeth [Mylanta Maximum Strength] 400-400-40 mg/5 mL Suspension 15 ml PO Q4H PRN (Reason: Stomach Upset) lidocaine 4 % adhesive patch,medicated 2 patch TOPICAL DAILY Label Comments: PER ASSISTED MAR PT GETS 2 PATCHES APPLIED TO BACK IN THE AM AND REMOVED AFTER 12 HOURS IN THE PM. metoprolol succinate 25 mg Tablet Extended Release 24 Hr 25 mg PO DAILY Qty: 30 2RF atorvastatin 40 mg tablet 40 mg PO QHS Qty: 30 2RF aspirin [Constance Low Dose Aspirin] 81 mg tablet,delayed release (DR/EC) 81 mg PO DAILY Qty: 30 3RF ondansetron 4 mg tablet,disintegrating 4 mg PO TID PRN (Reason: nausea and vomiting) Qty: 21 0RF gabapentin 300 mg capsule 300 mg PO BID gabapentin 100 mg capsule 100 mg PO DAILY Rx Instructions: @ 1300. insulin lispro 100 unit/mL insulin pen 15 unit SUBCUT TID Rx Instructions: with meals quetiapine 50 mg tablet 50 mg PO QHS insulin lispro [Humalog KwikPen Insulin] 100 unit/mL insulin pen 14 unit subcut DAILY Rx Instructions: @ 1645 hydrocodone-acetaminophen [hydrocodone-acetaminophen] 5-325 mg tablet 1 tab PO Q4H PRN PRN (Reason: Pain) 2 Days Qty: 10 0RF Primary Care Provider: Lizet Linares Referrals: Lizet Linares MD [Primary Care Provider] - 3-5 Days if not improving Activity Restrictions/Additional Instructions: Discard the Lometa prescription. Patient has used Percocet before in the past and should be fine with this for pain. Follow-up with your doctor if not improving. Disposition Disposition: Home, Self Care
== END 2023-01-07 16:46 | disposition home or self-care (01) ==
PROVIDERS: Emergency Provider Emergency Medicine; PCP Internal Medicine; Visit Provider Emergency Medicine
DX: R10.9 Unspecified abdominal pain (principal); E11.22 Type 2 diabetes mellitus with diabetic chronic kidney disease; N18.31 Chronic kidney disease, stage 3a; M51.26 Other intervertebral disc displacement, lumbar region; I12.9 Hypertensive chronic kidney disease with stage 1 through stage 4 chronic kidney disease, or unspecified chronic kidney disease; E78.00 Pure hypercholesterolemia, unspecified; Z87.891 Personal history of nicotine dependence; Z87.442 Personal history of urinary calculi; N20.0 Calculus of kidney
CPT/HCPCS: 96372; 99282; A4216

== ENCOUNTER → 2023-01-18 | Outpatient (REF) | payer MEDICARE, MEDICAID, SELFPAY ==
[2023-01-18 11:11] LABS: Cholesterol 103 mg/dL (200); High Density Lipoprotein 23 mg/dL; Triglycerides 325 mg/dL; Very Low Density Lipoprotein 65 mg/dL (5-40)
== END ==
LOC: OLS.WHLEAS 04:00
PROVIDERS: PCP Internal Medicine; Referring Provider Family Medicine; Visit Provider Family Medicine
DX: R48.8 Other symbolic dysfunctions (principal); M51.16 Intervertebral disc disorders with radiculopathy, lumbar region; E11.42 Type 2 diabetes mellitus with diabetic polyneuropathy; M62.81 Muscle weakness (generalized)
CPT/HCPCS: 36415; 80061

== ENCOUNTER → 2023-01-19 | Outpatient (REF) | payer MEDICARE, MEDICAID, SELFPAY ==
[2023-01-19 08:57] LABS: Hematocrit 33.1 % (37-47); Hemoglobin 10.4 g/dL (12.0-15.0); Mean Corp Hgb Conc 31.4 g/dL (32-36); Mean Corpuscular Hgb 29.1 pg (27.0-32.0); Mean Corpuscular Volume 92.5 fL (81-99); Mean Platelet Vol. 9.9 fl (6.2-12.0); Platelet Count 285 K/mm3 (150-450); RBC Distribution Width CV 13.6 % (11.6-14.6); RBC Distribution Width SD 46.8 fl (35.1-43.9); Red Blood Count 3.58 M/mm3 (4.2-5.4); White Blood Count 6.4 K/mm3 (4.4-11.0)
[2023-01-19 09:17] LABS: Anion Gap 5 (5-15); BUN 19 mg/dL (7-18); BUN/Creat Ratio 19.3 RATIO (10-20); Calcium,Total 8.7 mg/dL (8.5-10.1); Chloride 106 mmol/L (98-107); Creatinine, Serum 0.98 mg/dL (0.55-1.02); EST Glomerular Filtration Rate 61 mL/min (>60); Est Glom Filt Rate - Afr Amer 74 mL/min (>60); Glucose 197 mg/dL (74-106); Sodium Level 138 mmol/L (136-145)
== END ==
LOC: OLS.WHLEAS 05:00
PROVIDERS: PCP Internal Medicine; Visit Provider Family Medicine
DX: E11.22 Type 2 diabetes mellitus with diabetic chronic kidney disease (principal); E11.42 Type 2 diabetes mellitus with diabetic polyneuropathy; N18.31 Chronic kidney disease, stage 3a; M51.16 Intervertebral disc disorders with radiculopathy, lumbar region; M62.81 Muscle weakness (generalized); R26.2 Difficulty in walking, not elsewhere classified
CPT/HCPCS: 36415; 80048; 85027

== ENCOUNTER → 2023-01-26 | Outpatient (CLI) | payer MEDICARE, MEDICAID, SELFPAY | END | disposition home or self-care (01) | LOC: SL 20:00 | PROVIDERS: PCP Internal Medicine; Referring Provider Nurse Practitioner Adult Health; Visit Provider Nurse Practitioner Adult Health | DX: R40.0 Somnolence (principal); G47.10 Hypersomnia, unspecified | CPT/HCPCS: 95810 ==

== ENCOUNTER 2023-01-29 21:16 | Emergency (ER) | payer MEDICARE, MEDICAID, SELFPAY ==
[2023-01-29 21:18] VITALS: BP 133/83; PULSE 99; RESP 15; TEMP 37; O2SAT 98
[2023-01-29 21:47] LABS: Absolute Lymphocyte Count 2.44 X10^3/uL (0.83-4.51); Basophil# 0.03 X10^3/uL; Basophil% 0.3 % (0-1); Hematocrit 37.9 % (37-47); Hemoglobin 12.4 g/dL (12.0-15.0); Lymphocyte # 2.44 X10^3/ul (0.83-4.51); Lymphocyte % 20.3 % (19-41); Mean Corp Hgb Conc 32.7 g/dL (32-36); Mean Corpuscular Hgb 29.2 pg (27.0-32.0); Mean Corpuscular Volume 89.2 fL (81-99); Mean Platelet Vol. 9.3 fl (6.2-12.0); Monocyte# 0.48 X10^3/uL; NRBC Flagged by Analyzer 0 % (0-5); Neutrophil # 8.97 X10^3/uL (2.7-7.7); Neutrophil % 74.7 % (47-70); Platelet Count 347 K/mm3 (150-450); RBC Distribution Width CV 13.2 % (11.6-14.6); RBC Distribution Width SD 43.1 fl (35.1-43.9); Red Blood Count 4.25 M/mm3 (4.2-5.4)
[2023-01-29 22:02] VITALS: BMI 36.6
[2023-01-29 22:03] VITALS: O2SAT 98
[2023-01-29 22:06] VITALS: BP 152/71; PULSE 81; RESP 15; O2SAT 99
[2023-01-29 22:08] LABS: Anion Gap 8 (5-15); BUN 25 mg/dL (7-18); BUN/Creat Ratio 22.3 RATIO (10-20); Calcium,Total 9.3 mg/dL (8.5-10.1); Chloride 99 mmol/L (98-107); Creatinine, Serum 1.12 mg/dL (0.55-1.02); EST Glomerular Filtration Rate 53 mL/min (>60); Est Glom Filt Rate - Afr Amer 64 mL/min (>60); Estimated Creatinine Clearance 38.85 ml/min; Glucose 311 mg/dL (74-106); Potassium 4.1 mmol/L (3.5-5.1); Sodium Level 135 mmol/L (136-145); Troponin-I HS (w/2H Reflex) 12 pg/mL (3.0-54.0)
--- NOTE | 2023-01-29 22:18 | ED.VIS.CHEST ---
HPI History of Present Illness Chief Complaint: Chest Pain Informant: patient Onset/Context/Timing Onset: Today and Hours (3) Activity at onset: sudden Timing: Continuous Quality: Positive for Heaviness and Pressure Location: Left Chest Worsened By: Nothing Relieved By: Nothing Associated Symptoms: Positive for Nausea, Lightheadedness and Palpitations; Negative for Vomiting, Diaphoresis, Dyspnea, Cough, Fever or Acid Reflux Narrative Narrative: Patient presents with chest pain that began approximately 3 hours prior to arrival. Patient states it began rather suddenly. Patient describes it as pressure and heaviness. Patient states it is over the left chest and radiates into her left shoulder and left jaw. Patient states nothing makes it worse and nothing makes it better. Patient admits to some nausea but denies any vomiting. Patient denies any cough or fever. Patient denies any shortness of breath. Patient does admit to some lightheadedness. Patient also admits to some palpitations. CVD Risk Factors: Positive for Hypertension, Diabetes, Hypercholesterolemia and Family History 1' </=55; Negative for Smoking PE Risk Factors: Positive for Recent Immobilization; Negative for Recent Travel/Surgery, Prior DVT or PE, Cancer or OCP + Smoking + >/=35 PFSH PFSH Medical History Carpal tunnel syndrome Chronic back pain Chronic renal failure, stage 3a CKD (chronic kidney disease) stage 3, GFR 30-59 ml/min Contusion of great toe, right Contusion of knee Depression Depressive disorder Diabetes Difficulty in walking, not elsewhere classified Elevated troponin Essential hypertension Fatigue Former smoker History of left heart catheterization (LHC) (~05/21/22) HTN (hypertension) Hyperlipidemia Hypokalemia Hypothyroidism Infection of tooth Intervertebral disc disorder with radiculopathy of lumbar region Kidney disease Kidney stones Migraines Normochromic normocytic anemia Obesity (BMI 35.0-39.9 without comorbidity) Opiate abuse, continuous Orthostatic hypotension Pure hypercholesterolemia Renal insufficiency Stomach ulcer Thyroid disease Type II diabetes mellitus, uncontrolled Home Medications rizatriptan 10 mg tablet 10 mg PO PRN PRN Migraine Symptoms 12/27/17 [History Last Taken Unknown] pen needle,diabetic, disp unit 29 gauge x 1/2, remover and disposal unit #100 ea 06/23/21 [Rx Last Taken Unknown] acetaminophen 500 mg tablet 1,000 mg PO TID PRN pain #0 tabs 03/27/22 [Rx Last Taken 04/23/22 16:40] polyethylene glycol 3350 17 gram oral powder packet 17 g PO DAILY PRN PRN constipation #0 ea 03/27/22 [Rx Last Taken Unknown] sennosides 8.6 mg-docusate sodium 50 mg tablet (Stool Softener-Stimulant Laxative) 2 tab PO BID #0 tabs 03/27/22 [Rx Last Taken Unknown] aluminum-mag hydroxide-simethicone 400 mg-400 mg-40 mg/5 mL oral susp (Mylanta Maximum Strength) 15 ml PO Q4H PRN Stomach Upset 04/24/22 [History Last Taken 04/24/22] aspirin 81 mg tablet,delayed release (Constance Low Dose Aspirin) 81 mg PO DAILY #30 tabs 05/21/22 [Rx Last Taken Unknown] atorvastatin 40 mg tablet 40 mg PO QHS #30 tabs 05/21/22 [Rx Last Taken Unknown] metoprolol succinate 25 mg tablet,extended release 24 hr 25 mg PO DAILY #30 tabs 05/21/22 [Rx Last Taken Unknown] dextrose 40 % oral gel (Glutose-15) 15 g PO Q15M PRN Blood Sugar 06/12/22 [History Last Taken Unknown] levothyroxine 175 mcg capsule 175 mcg PO DAILY 06/12/22 [History Last Taken Unknown] lidocaine 4 % topical patch 2 patch topical DAILY Back Pain 06/12/22 [History Last Taken Unknown] pantoprazole 40 mg tablet,delayed release 40 mg PO DAILY 06/12/22 [History Last Taken Unknown] ranolazine 500 mg tablet,extended release,12 hr 500 mg PO BID #60 tabs 06/12/22 [Rx Last Taken Unknown] insulin glargine-yfgn 100 unit/mL (3 mL) subcutaneous pen 60 unit subcut QHS 09/09/22 [History Last Taken Unknown] midodrine 10 mg tablet 10 mg PO BID 09/09/22 [History Last Taken Unknown] mirtazapine 15 mg tablet 7.5 mg PO QHS 09/09/22 [History Last Taken Unknown] nitroglycerin 0.4 mg sublingual tablet 0.4 mg sublingual Q5-15M 09/09/22 [History Last Taken Unknown] ondansetron 4 mg disintegrating tablet 4 mg PO TID PRN nausea and vomiting #21 tabs 10/09/22 [Rx Last Taken Unknown] gabapentin 300 mg capsule 300 mg PO DAILY 11/05/22 [History Last Taken Unknown] insulin lispro 100 unit/mL subcutaneous pen 15 unit subcut TID 11/05/22 [History Last Taken Unknown] dulaglutide 3 mg/0.5 mL subcutaneous pen injector (Trulicity) mg subcut MO 01/29/23 [History Last Taken Unknown] fenofibrate 50 mg capsule 50 mg PO QHS 01/29/23 [History Last Taken Unknown] insulin glargine 100 unit/mL (3 mL) subcutaneous pen (Lantus Solostar U-100 Insulin) 30 unit subcut DAILY 01/29/23 [History Last Taken Unknown] lorazepam 0.5 mg tablet 0.5 mg PO Q12H anxeity 01/29/23 [History Last Taken Unknown] quetiapine 25 mg tablet 37.5 mg PO QHS 01/29/23 [History Last Taken Unknown] Allergy/AdvReac Type Severity Reaction Status Date / Time celecoxib [From Celebrex] Allergy Itching Verified 01/07/23 15:19 ciprofloxacin [From Cipro] Allergy Swelling Verified 01/07/23 15:19 ciprofloxacin HCl Allergy Swelling Verified 01/07/23 15:19 [From Cipro] codeine Allergy Hives Verified 01/07/23 15:19 ibuprofen Allergy Hives Verified 01/07/23 15:19 naproxen Allergy Hives Verified 01/07/23 15:19 Penicillins Allergy Hives Verified 01/07/23 15:19 tramadol HCl [From Ultram] Allergy Hives Verified 01/07/23 15:19 ketorolac [From Toradol] AdvReac Swelling Verified 01/07/23 15:19 Family History Other CVA (cerebral vascular accident) Cancer Diabetes Myocardial infarction Surgical History H/O: hysterectomy Hx of section S/P trigger finger release Social History household members: other details: currently living in a NH for therapy for chronic back pain housing: intermediate Smoking Status: Former smoker Tobacco: How many years used: 46 how long ago did patient quit smoking: She quit smoking in August or September of 2021. She started smoking at 14 alcohol intake: never substance use type: other details: has a hx of chronic opioid use ROS ROS ED Constitutional Constitutional ED: Denies chills or fever(s) Eyes Eyes: Reports blurry vision; Denies diplopia ENT ENT ED: Denies rhinorrhea or sore throat Cardiovascular Cardiovascular: Reports chest pain, palpitations and racing heartbeat Respiratory/Chest Respiratory/Chest: Denies cough or dyspnea Gastrointestinal Gastrointestinal: Reports nausea; Denies abdominal pain or vomiting Genitourinary Genitourinary ED: Denies dysuria or hematuria Musculoskeletal Musculoskeletal: Denies back pain or neck pain Integumentary Denies abscess or rash Neurologic Neurologic: Denies headache(s) or weakness Allergic/Immunologic Allergic/Immunologic ED: Denies mouth swelling or urticaria EXAM Physical Exam Const Vital Signs: 01/29/23 21:18 01/29/23 22:03 01/29/23 22:04 Temperature 98.6 F Temperature Source Temporal Pulse Rate 99 Respiratory Rate 15 Respiratory Effort Normal Non-Labored Respiratory Pattern Normal Blood Pressure 133/83 H Blood Pressure Mean 99 Pulse Ox 98 98 Oxygen Delivery Method Room Air Room Air 01/29/23 22:06 01/29/23 23:00 01/29/23 23:47 Temperature Temperature Source Pulse Rate 81 84 82 Respiratory Rate 15 14 14 Respiratory Effort Respiratory Pattern Blood Pressure 152/71 H 146/64 H 133/65 H Blood Pressure Mean 98 91 87 Pulse Ox 99 97 96 Oxygen Delivery Method Room Air Room Air Room Air 01/30/23 00:39 Temperature 98 F Temperature Source Oral Pulse Rate 85 Respiratory Rate 19 H Respiratory Effort Respiratory Pattern Blood Pressure 159/85 H Blood Pressure Mean 109 Pulse Ox 97 Oxygen Delivery Method Room Air Positive well nourished, well developed and obese General Appearance ED: well developed Nutritional Appearance: obese HEENT normocephalic and atraumatic Eyes PERRL and EOMs intact bilaterally Neck supple and no JVD Chest Wall palpation of chest normal Resp normal respiratory effort and clear to auscultation bilaterally Effort and Inspection: Negative for respiratory distress Cardio regular rate and regular rhythm GI normal to inspection, nondistended, normoactive bowel sounds, soft to palpation, non-tender and non-distended Extremity normal to inspection General Extremety ED: Negative for edema or tenderness General Extremity: Negative for edema Neuro oriented x3, CN's II-XII intact bilaterally and no sensory deficits noted Sensorium / Orientation: awake and alert Motor Exam: strength 5/5 throughout Psych mental status grossly normal Heart Score History: Slightly/Non-Suspicious ECG: Nonspecific Repolarization Age: >45 - <65 years Risk Factors: >/= 3 Risk Factors or History of CAD Troponin: </= Normal Limit Score: 4 MDM MDM MDM Narrative Medical decision making narrative: Differential diagnosis includes cardiac dysrhythmia, cardiac ischemia, pulmonary embolism, anxiety, electrolyte abnormality, pneumonia, pneumothorax, viral upper respiratory infection, and musculoskeletal pain. EKG will be obtained to assess for cardiac dysrhythmia and cardiac ischemia. Chest x-ray will be obtained to assess for pneumonia and pneumothorax. CBC will be obtained to assess for leukocytosis and anemia. Basic metabolic profile will be obtained to assess for electrolyte abnormality and renal function. High-sensitivity troponin will be obtained to assess for cardiac ischemia. D-dimer will be obtained to assess for pulmonary embolism. Lab Data Attestation: I reviewed the patient's lab results. Lab results narrative: CBC was reviewed and shows a mild leukocytosis of 12.0. Basic metabolic profile was reviewed and showed an elevated glucose of 311. The remainder was within normal limits. Initial high-sensitivity troponin was reviewed and was normal at 12. D-dimer was reviewed and was normal at 0.39. 2-hour repeat high-sensitivity troponin was reviewed and was normal at 13. Labs: Laboratory Results - last 24 hr 01/29/23 01/29/23 01/29/23 21:42 21:42 23:05 WBC 12.0 H RBC 4.25 Hgb 12.4 Hct 37.9 MCV 89.2 MCH 29.2 MCHC 32.7 RDW Std Deviation 43.1 RDW Coeff of Anisa 13.2 Plt Count 347 MPV 9.3 Immature Gran % (Auto) 0.700 Neut % (Auto) 74.7 H Lymph % (Auto) 20.3 [place] % (Auto) 4.0 Eos % (Auto) 0.0 Baso % (Auto) 0.3 Absolute Neuts (auto) 9.0 H Absolute Lymphs (auto) 2.44 Nucleated RBC % 0 D-Dimer Quant (PE/DVT) 0.39 Sodium 135 L Potassium 4.1 Chloride 99 Carbon Dioxide 28.0 Anion Gap 8 BUN 25 H Creatinine 1.12 H Estim Creat Clear Calc 38.85 Est GFR (MDRD) Af Amer 64 Est GFR (MDRD) Non-Af 53 L BUN/Creatinine Ratio 22.3 H Glucose 311 H Calcium 9.3 Troponin I High Sens 12 01/29/23 23:40 WBC RBC Hgb Hct MCV MCH MCHC RDW Std Deviation RDW Coeff of Anisa Plt Count MPV Immature Gran % (Auto) Neut % (Auto) Lymph % (Auto) [place] % (Auto) Eos % (Auto) Baso % (Auto) Absolute Neuts (auto) Absolute Lymphs (auto) Nucleated RBC % D-Dimer Quant (PE/DVT) Sodium Potassium Chloride Carbon Dioxide Anion Gap BUN Creatinine Estim Creat Clear Calc Est GFR (MDRD) Af Amer Est GFR (MDRD) Non-Af BUN/Creatinine Ratio Glucose Calcium Troponin I High Sens 13 Radiography Diagnostic Testing: Clinical Impression(s) from Imaging Studies Chest X-Ray 01/29/23 22:23 IMPRESSION: No demonstrated acute cardiopulmonary process. Electronically Signed: Cecile Roach MD at 22:35 EDT , Portable 1 view chest x-ray was obtained. On my independent interpretation, lung moreno are clear. There is normal cardiac silhouette. Bony thorax is normal. There is no acute process noted. Radiologist also interpreted the x-ray and agrees. EKG Initial EKG: Attestation: I personally reviewed and interpreted this EKG as follows: Interpretation: Sinus Rhythm (90) and Non-Specific ST Changes Comments: EKG was obtained. On my independent interpretation, it showed a normal sinus rhythm with a rate of 90. PA interval, QRS interval, and QTc intervals were all normal. [place] was normal. There are nonspecific ST-T wave changes. Prior EKG tracings: available for review Prior: Unchanged (11/05/2022 3) Differential Diagnosis Chest pain/SOB: pulmonary embolism Reason(s) PE less likely: Positive for Well's <3, not tachycardic and not hypoxic Treatment and Re-Evaluation :: Patient was advised of her findings. Patient was instructed to follow-up with her primary care physician in 5 to 7 days. Patient understands and is agreeable with the plan. All questions were answered. Discharge Plan Triage Chief Complaint: Chest Pain ED Provider: Marck Dunn Dx/Rx/DC Orders Clinical Impression: Chest pain of uncertain etiology, Type II diabetes mellitus, uncontrolled Instructions: ED Chest Pain, Uncertain Cause Prescriptions: No Action levothyroxine 175 mcg capsule 175 mcg PO DAILY pantoprazole 40 mg tablet,delayed release (DR/EC) 40 mg PO DAILY dextrose [Glutose-15] 40 % gel 15 g PO Q15M PRN (Reason: Blood Sugar) Rx Instructions: until symptoms of low blood sugar are controlled ranolazine 500 mg tablet extended release 12 hr 500 mg PO BID Qty: 60 11RF insulin glargine-yfgn 100 unit/mL (3 mL) insulin pen 60 unit subcut QHS mirtazapine 15 mg tablet 7.5 mg PO QHS nitroglycerin 0.4 mg tablet, sublingual 0.4 mg sublingual Q5-15M midodrine 10 mg tablet 10 mg PO BID rizatriptan 10 tablet 10 mg PO PRN PRN (Reason: Migraine Symptoms) Label Comments: (DME) pen needle,diabetic, disp unit 29 gauge x 1/2 needle See Rx Instructions .ROUTE .MEDSUPPLY Qty: 100 0RF Rx Instructions: As directed acetaminophen 500 mg Tablet 1,000 mg PO TID PRN (Reason: pain) Qty: 0 0RF polyethylene glycol 3350 17 gram Powder In Packet 17 g PO DAILY PRN PRN (Reason: constipation) Qty: 0 0RF sennosides-docusate sodium [Stool Softener-Stimulant Laxat] 8.6-50 mg Tablet 2 tab PO BID Qty: 0 0RF alum-mag hydroxide-simeth [Mylanta Maximum Strength] 400-400-40 mg/5 mL Suspension 15 ml PO Q4H PRN (Reason: Stomach Upset) lidocaine 4 % adhesive patch,medicated 2 patch TOPICAL DAILY Label Comments: PER [facility] MAR PT GETS 2 PATCHES APPLIED TO BACK IN THE AM AND REMOVED AFTER 12 HOURS IN THE PM. metoprolol succinate 25 mg Tablet Extended Release 24 Hr 25 mg PO DAILY Qty: 30 2RF atorvastatin 40 mg tablet 40 mg PO QHS Qty: 30 2RF aspirin [Constance Low Dose Aspirin] 81 mg tablet,delayed release (DR/EC) 81 mg PO DAILY Qty: 30 3RF ondansetron 4 mg tablet,disintegrating 4 mg PO TID PRN (Reason: nausea and vomiting) Qty: 21 0RF gabapentin 300 mg capsule 300 mg PO DAILY insulin lispro 100 unit/mL insulin pen 15 unit SUBCUT TID Rx Instructions: with meals quetiapine 25 mg tablet 37.5 mg PO QHS lorazepam 0.5 mg tablet 0.5 mg PO Q12H insulin glargine [Lantus Solostar U-100 Insulin] 100 unit/mL (3 mL) insulin pen 30 unit SUBCUT DAILY fenofibrate 50 mg Capsule 50 mg PO QHS Trulicity 3 mg/0.5 mL pen injector SUBCUT MO Primary Care Provider: Lizet Linares Referrals: Lizet Linares MD [Primary Care Provider] - 3-5 Days Disposition Disposition: Home, Self Care
--- NOTE | 2023-01-29 22:23 | RAD_ITS ---
STUDY: X-RAY CHEST REASON FOR EXAM: Female, 57 years old. Chest pain TECHNIQUE: Single AP portable view of the chest. COMPARISON: November 05, 2022 chest x-ray FINDINGS: The lungs are clear and expanded. There is no demonstrated pleural abnormality. Normal size heart. Normal mediastinum and adryan. Normal visualized pulmonary arteries. There is atherosclerotic calcification of the aortic arch with tortuosity. Normal visualized thoracic spine. Normal visualized ribs, clavicles, and shoulders. There is no demonstrated abnormality of the visualized soft tissue structures of the upper abdomen. RAD/Chest 1 View (Portable) IMPRESSION: No demonstrated acute cardiopulmonary process. Electronically Signed: Cecile Roach MD at 22:35 EDT ,
[2023-01-29 23:00] VITALS: BP 146/64; PULSE 84; RESP 14; O2SAT 97
[2023-01-29 23:29] LABS: D-Dimer Quantitative (DVT/PE) 0.39 FEU/ug/m (0.27-0.49)
[2023-01-29] MEDS: Morphine 4 MG/ML Syringe IV (23:42)
[2023-01-29 23:47] VITALS: BP 133/65; PULSE 82; RESP 14; O2SAT 96
[2023-01-30 00:27] LABS: Troponin-I HS 13 pg/mL (3.0-54.0)
[2023-01-30 00:39] VITALS: BP 159/85; PULSE 85; RESP 19; TEMP 36.6; O2SAT 97
== END 2023-01-30 01:14 | disposition home or self-care (01) ==
PROVIDERS: Emergency Provider Emergency Medicine; PCP Internal Medicine; Visit Provider Emergency Medicine
DX: R07.9 Chest pain, unspecified (principal); E11.22 Type 2 diabetes mellitus with diabetic chronic kidney disease; Z79.4 Long term (current) use of insulin; N18.31 Chronic kidney disease, stage 3a; I12.9 Hypertensive chronic kidney disease with stage 1 through stage 4 chronic kidney disease, or unspecified chronic kidney disease; Z87.891 Personal history of nicotine dependence; E78.00 Pure hypercholesterolemia, unspecified; G43.909 Migraine, unspecified, not intractable, without status migrainosus; Z79.899 Other long term (current) drug therapy; Z79.82 Long term (current) use of aspirin; Z79.84 Long term (current) use of oral hypoglycemic drugs; F32.A Depression, unspecified; M54.9 Dorsalgia, unspecified
CPT/HCPCS: 71045; 80048; 84484; 85025; 85379; 93005; 96374; 99284; A4216

== ENCOUNTER → 2023-02-02 | Outpatient (REF) | payer MEDICARE, MEDICAID, SELFPAY ==
[2023-02-02 07:37] LABS: Absolute Lymphocyte Count 3.01 X10^3/uL (0.83-4.51); Absolute Neutrophil Count 5.7 X10^3/uL (2.0-7.7); Basophil# 0.06 X10^3/uL; Basophil% 0.6 % (0-1); Eosinophil# 0.04 X10^3/uL; Eosinophils% 0.4 % (0-5); Hematocrit 34.8 % (37-47); Hemoglobin 11.3 g/dL (12.0-15.0); Lymphocyte # 3.01 X10^3/ul (0.83-4.51); Lymphocyte % 32.3 % (19-41); Mean Corp Hgb Conc 32.5 g/dL (32-36); Mean Corpuscular Hgb 29.5 pg (27.0-32.0); Mean Corpuscular Volume 90.9 fL (81-99); Mean Platelet Vol. 9.6 fl (6.2-12.0); Monocyte# 0.52 X10^3/uL; Monocyte% 5.6 % (0-10); NRBC Flagged by Analyzer 0 % (0-5); Neutrophil # 5.65 X10^3/uL (2.7-7.7); Neutrophil % 60.8 % (47-70); Platelet Count 299 K/mm3 (150-450); RBC Distribution Width CV 13.3 % (11.6-14.6); RBC Distribution Width SD 44.8 fl (35.1-43.9); Red Blood Count 3.83 M/mm3 (4.2-5.4); White Blood Count 9.3 K/mm3 (4.4-11.0)
[2023-02-02 07:56] LABS: Anion Gap 7 (5-15); BUN 32 mg/dL (7-18); BUN/Creat Ratio 28.8 RATIO (10-20); Chloride 103 mmol/L (98-107); Creatinine, Serum 1.11 mg/dL (0.55-1.02); EST Glomerular Filtration Rate 53 mL/min (>60); Est Glom Filt Rate - Afr Amer 65 mL/min (>60); Glucose 247 mg/dL (74-106); Potassium 4.2 mmol/L (3.5-5.1); Sodium Level 136 mmol/L (136-145)
== END ==
LOC: OLS.WHLEAS 05:00
PROVIDERS: PCP Internal Medicine; Visit Provider Internal Medicine
DX: E11.22 Type 2 diabetes mellitus with diabetic chronic kidney disease (principal); N18.31 Chronic kidney disease, stage 3a; M51.16 Intervertebral disc disorders with radiculopathy, lumbar region; E11.42 Type 2 diabetes mellitus with diabetic polyneuropathy; M62.81 Muscle weakness (generalized); R26.2 Difficulty in walking, not elsewhere classified
CPT/HCPCS: 36415; 80048; 85025

== ENCOUNTER → 2023-02-16 | Outpatient (REF) | payer MEDICARE, MEDICAID, SELFPAY ==
[2023-02-16 07:32] LABS: Hematocrit 36.6 % (37-47); Hemoglobin 11.8 g/dL (12.0-15.0); Mean Corp Hgb Conc 32.2 g/dL (32-36); Mean Corpuscular Hgb 29.7 pg (27.0-32.0); Mean Corpuscular Volume 92.2 fL (81-99); Mean Platelet Vol. 9.6 fl (6.2-12.0); Platelet Count 251 K/mm3 (150-450); RBC Distribution Width CV 13.4 % (11.6-14.6); RBC Distribution Width SD 45.4 fl (35.1-43.9); Red Blood Count 3.97 M/mm3 (4.2-5.4); White Blood Count 6.8 K/mm3 (4.4-11.0)
[2023-02-16 07:38] LABS: Anion Gap 2 (5-15); BUN 20 mg/dL (7-18); BUN/Creat Ratio 19.4 RATIO (10-20); Calcium,Total 8.7 mg/dL (8.5-10.1); Chloride 102 mmol/L (98-107); Creatinine, Serum 1.03 mg/dL (0.55-1.02); EST Glomerular Filtration Rate 58 mL/min (>60); Est Glom Filt Rate - Afr Amer 70 mL/min (>60); Glucose 380 mg/dL (74-106); Potassium 4.1 mmol/L (3.5-5.1); Sodium Level 133 mmol/L (136-145)
== END ==
LOC: OLS.WHLEAS 05:00
PROVIDERS: PCP Internal Medicine; Visit Provider Internal Medicine
DX: E11.22 Type 2 diabetes mellitus with diabetic chronic kidney disease (principal); N18.31 Chronic kidney disease, stage 3a; M51.16 Intervertebral disc disorders with radiculopathy, lumbar region; E11.42 Type 2 diabetes mellitus with diabetic polyneuropathy; M62.81 Muscle weakness (generalized); R26.2 Difficulty in walking, not elsewhere classified
CPT/HCPCS: 36415; 80048; 85027

== ENCOUNTER → 2023-03-01 | Outpatient (CLI) | payer MEDICARE, MEDICAID, SELFPAY ==
[2023-03-01 13:35] LABS: Amphetamine Urine VISTA NEGATIVE (<1000 ng/mL); Barbiturate Urine VISTA NEGATIVE (< 200 ng/mL); Benzodiazepine Urine VISTA NEGATIVE (< 200 ng/mL); Cocaine Urine VISTA NEGATIVE (< 300 ng/mL); Ecstacy Urine VISTA NEGATIVE (< 500 ng/mL); Methadone Urine VISTA NEGATIVE (< 300 ng/mL); PCP Urine VISTA NEGATIVE (< 25 ng/mL); THC Urine VISTA NEGATIVE (< 50 ng/mL); Vista UDS pH Range 6
== END | disposition home or self-care (01) ==
LOC: LAB 12:46
PROVIDERS: PCP Internal Medicine; Referring Provider Anesthesiology Pain Medicine; Visit Provider Anesthesiology Pain Medicine
DX: F11.20 Opioid dependence, uncomplicated (principal)
CPT/HCPCS: 80307

== ENCOUNTER → 2023-03-02 | Outpatient (REF) | payer MEDICARE, MEDICAID, SELFPAY ==
[2023-03-02 08:29] LABS: Hematocrit 35.3 % (37-47); Hemoglobin 11.2 g/dL (12.0-15.0); Mean Corp Hgb Conc 31.7 g/dL (32-36); Mean Corpuscular Hgb 29.4 pg (27.0-32.0); Mean Corpuscular Volume 92.7 fL (81-99); Mean Platelet Vol. 9.5 fl (6.2-12.0); Platelet Count 292 K/mm3 (150-450); RBC Distribution Width CV 13.2 % (11.6-14.6); RBC Distribution Width SD 44.9 fl (35.1-43.9); Red Blood Count 3.81 M/mm3 (4.2-5.4); White Blood Count 6.4 K/mm3 (4.4-11.0)
[2023-03-02 08:36] LABS: Anion Gap 6 (5-15); BUN 20 mg/dL (7-18); BUN/Creat Ratio 21.9 RATIO (10-20); Chloride 106 mmol/L (98-107); Creatinine, Serum 0.92 mg/dL (0.55-1.02); EST Glomerular Filtration Rate 67 mL/min (>60); Est Glom Filt Rate - Afr Amer 81 mL/min (>60); Glucose 241 mg/dL (74-106); Potassium 4.2 mmol/L (3.5-5.1); Sodium Level 138 mmol/L (136-145)
== END ==
LOC: OLS.WHLEAS 05:00
PROVIDERS: PCP Internal Medicine; Visit Provider Family Medicine
DX: E11.22 Type 2 diabetes mellitus with diabetic chronic kidney disease (principal); N18.31 Chronic kidney disease, stage 3a; M51.16 Intervertebral disc disorders with radiculopathy, lumbar region; E11.42 Type 2 diabetes mellitus with diabetic polyneuropathy; M62.81 Muscle weakness (generalized); R26.2 Difficulty in walking, not elsewhere classified
CPT/HCPCS: 36415; 80048; 85027

== ENCOUNTER → 2023-03-16 | Outpatient (REF) | payer MEDICARE, MEDICAID, SELFPAY ==
[2023-03-16 08:17] LABS: Hematocrit 34.8 % (37-47); Hemoglobin 10.8 g/dL (12.0-15.0); Mean Corpuscular Hgb 28.9 pg (27.0-32.0); Mean Platelet Vol. 9.6 fl (6.2-12.0); Platelet Count 277 K/mm3 (150-450); RBC Distribution Width SD 44.1 fl (35.1-43.9); Red Blood Count 3.74 M/mm3 (4.2-5.4)
[2023-03-16 08:43] LABS: Anion Gap 7 (5-15); BUN 18 mg/dL (7-18); Calcium,Total 8.8 mg/dL (8.5-10.1); Chloride 105 mmol/L (98-107); EST Glomerular Filtration Rate 60 mL/min (>60); Est Glom Filt Rate - Afr Amer 73 mL/min (>60); Glucose 171 mg/dL (74-106); Potassium 3.8 mmol/L (3.5-5.1); Sodium Level 139 mmol/L (136-145)
== END ==
LOC: OLS.WHLEAS 05:00
PROVIDERS: PCP Internal Medicine; Visit Provider Internal Medicine
DX: E11.22 Type 2 diabetes mellitus with diabetic chronic kidney disease (principal); E11.42 Type 2 diabetes mellitus with diabetic polyneuropathy; N18.31 Chronic kidney disease, stage 3a; M51.16 Intervertebral disc disorders with radiculopathy, lumbar region; M62.81 Muscle weakness (generalized); R26.2 Difficulty in walking, not elsewhere classified
CPT/HCPCS: 36415; 80048; 85027

== ENCOUNTER 2023-03-28 08:39 | Emergency (ER) | payer MEDICARE, MEDICAID, SELFPAY ==
[2023-03-28 08:40] VITALS: BP 133/76; PULSE 122; RESP 18; TEMP 35; O2SAT 100
--- NOTE | 2023-03-28 09:01 | CT_ITS ---
STUDY: CT ABDOMEN AND PELVIS WITH CONTRAST - URINARY TRACT REASON FOR EXAM: Female, 57 years old. LLQ abdominal pain, constipation RADIATION DOSAGE (If Supplied By Facility): CTDIvol = ( 15.70 ) mGy, DLP = ( 1151.39 ) mGycm TECHNIQUE: IV 100mL Isovue-300 was administered. Transaxial images were obtained from the dome of the diaphragm to the symphysis pubis in the arterial, nephrographic and excretory phases. Multiplanar coronal and sagittal images were reformatted. Individualized Dose Optimization Techniques Were Used For This CT. COMPARISON: January 06, 2023 FINDINGS: The visualized lung bases are unremarkable. The visualized portions of the heart are within normal limits. There is a stable coarse calcification within the dome of the liver. The liver is mildly low in attenuation consistent with fatty infiltration. There is hepatomegaly. The gallbladder is surgically absent. There is stable dilatation of the common bile duct. There is a splenic calcification. Normal pancreas. Normal bilateral adrenal glands. Normal visualized stomach. Normal small intestine. Normal colon. The appendix is visualized and appears normal. There is a moderate amount of stool within the rectum. There is circumferential wall thickening of the anus. There is diffuse atherosclerotic calcification of the abdominal aorta, without a demonstrated aneurysm. No retroperitoneal adenopathy. Normal right kidney. Normal left kidney. There is bladder wall thickening. There is a small umbilical hernia containing fat. There are diffuse degenerative changes of the visualized lumbar spine. CT/Abdomen/Pelvis W IV Cont ONLY IMPRESSION: Moderate amount of stool within the rectum. Circumferential wall thickening of the anus may be secondary to edema. Bladder wall thickening may be secondary to cystitis of uncertain chronicity. Atherosclerosis. Fatty infiltration of the liver. Electronically Signed: Courtney Gutierrez MD at 10:10 EDT ,
--- NOTE | 2023-03-28 09:02 | EDS_ITS ---
HPI HPI - GI History of Present Illness Chief Complaint: Constipation Narrative Narrative: 57-year-old female past medical history of chronic pain, hypertension, chronic kidney disease, presents with abdominal pain and constipation that she has had over the last 4 to 5 days. She states she usually has a bowel movement every 3 days. Her last normal bowel movement was on Wednesday, 5 days ago. Since then she has been nauseated, and unable to have a bowel movement. She has passed very little gas over the last few days, since Wednesday. She states she took a bunch of laxatives on Wednesday, and still has not had a bowel movement. No fevers or chills. No exacerbating or alleviating factors. She does wear a pain patch that she received from her pain management doctor, Dr. Renteria. She complains of pain in her lower abdomen, and feels when she bears down to have a bowel movement that something might be stuck. [facility] Medical History (Updated 03/28/23 @ 11:09 by Ellis Peterson MD) Carpal tunnel syndrome Chronic back pain Chronic renal failure, stage 3a CKD (chronic kidney disease) stage 3, GFR 30-59 ml/min Contusion of great toe, right Contusion of knee Depression Depressive disorder Diabetes Difficulty in walking, not elsewhere classified Elevated troponin Essential hypertension Fatigue Former smoker History of left heart catheterization (LHC) (~05/21/22) HTN (hypertension) Hyperlipidemia Hypokalemia Hypothyroidism Infection of tooth Intervertebral disc disorder with radiculopathy of lumbar region Kidney disease Kidney stones Migraines Normochromic normocytic anemia Obesity (BMI 35.0-39.9 without comorbidity) Opiate abuse, continuous Orthostatic hypotension Pure hypercholesterolemia Renal insufficiency Stomach ulcer Thyroid disease Type II diabetes mellitus, uncontrolled Home Medications rizatriptan 10 mg tablet 10 mg PO PRN PRN Migraine Symptoms 12/27/17 [History Last Taken Unknown] pen needle,diabetic, disp unit 29 gauge x 1/2, remover and disposal unit #100 ea 06/23/21 [Rx Last Taken Unknown] acetaminophen 500 mg tablet 1,000 mg PO TID PRN pain #0 tabs 03/27/22 [Rx Last Taken 04/23/22 16:40] polyethylene glycol 3350 17 gram oral powder packet 17 g PO DAILY PRN PRN constipation #0 ea 03/27/22 [Rx Last Taken Unknown] sennosides 8.6 mg-docusate sodium 50 mg tablet (Stool Softener-Stimulant Laxati ve) 2 tab PO BID #0 tabs 03/27/22 [Rx Last Taken Unknown] aluminum-mag hydroxide-simethicone 400 mg-400 mg-40 mg/5 mL oral susp (Mylanta Maximum Strength) 15 ml PO Q4H PRN Stomach Upset 04/24/22 [History Last Taken 04/24/22] aspirin 81 mg tablet,delayed release (Constance Low Dose Aspirin) 81 mg PO DAILY #30 tabs 05/21/22 [Rx Last Taken Unknown] atorvastatin 40 mg tablet 40 mg PO QHS #30 tabs 05/21/22 [Rx Last Taken Unknown] metoprolol succinate 25 mg tablet,extended release 24 hr 25 mg PO DAILY #30 tabs 05/21/22 [Rx Last Taken Unknown] dextrose 40 % oral gel (Glutose-15) 15 g PO Q15M PRN Blood Sugar 06/12/22 [History Last Taken Unknown] levothyroxine 175 mcg capsule 175 mcg PO DAILY 06/12/22 [History Last Taken Unknown] lidocaine 4 % topical patch 2 patch topical DAILY Back Pain 06/12/22 [History Last Taken Unknown] pantoprazole 40 mg tablet,delayed release 40 mg PO DAILY 06/12/22 [History Last Taken Unknown] ranolazine 500 mg tablet,extended release,12 hr 500 mg PO BID #60 tabs 06/12/22 [Rx Last Taken Unknown] insulin glargine-yfgn 100 unit/mL (3 mL) subcutaneous pen 60 unit subcut QHS 09/09/22 [History Last Taken Unknown] midodrine 10 mg tablet 10 mg PO BID 09/09/22 [History Last Taken Unknown] mirtazapine 15 mg tablet 7.5 mg PO QHS 09/09/22 [History Last Taken Unknown] nitroglycerin 0.4 mg sublingual tablet 0.4 mg sublingual Q5-15M 09/09/22 [History Last Taken Unknown] ondansetron 4 mg disintegrating tablet 4 mg PO TID PRN nausea and vomiting #21 tabs 10/09/22 [Rx Last Taken Unknown] insulin lispro 100 unit/mL subcutaneous pen 15 unit subcut TID 11/05/22 [History Last Taken Unknown] dulaglutide 3 mg/0.5 mL subcutaneous pen injector ([facility]) mg subcut MO 01/29/23 [History Last Taken Unknown] fenofibrate 50 mg capsule 50 mg PO QHS 01/29/23 [History Last Taken Unknown] insulin glargine 100 unit/mL (3 mL) subcutaneous pen (Lantus Solostar U-100 Insulin) 30 unit subcut DAILY 01/29/23 [History Last Taken Unknown] lorazepam 0.5 mg tablet 0.5 mg PO Q12H anxeity 01/29/23 [History Last Taken Unknown] quetiapine 25 mg tablet 37.5 mg PO QHS 01/29/23 [History Last Taken Unknown] gabapentin 300 mg capsule 600 mg PO BID 02/11/23 [History Last Taken Unknown] Allergy/AdvReac Type Severity Reaction Status Date / Time celecoxib [From Celebrex] Allergy Itching Verified 02/11/23 13:28 ciprofloxacin [From Cipro] Allergy Swelling Verified 02/11/23 13:28 ciprofloxacin HCl Allergy Swelling Verified 02/11/23 13:28 [From Cipro] codeine Allergy Hives Verified 02/11/23 13:28 ibuprofen Allergy Hives Verified 02/11/23 13:28 naproxen Allergy Hives Verified 02/11/23 13:28 Penicillins Allergy Hives Verified 02/11/23 13:28 tramadol HCl [From Ultram] Allergy Hives Verified 02/11/23 13:28 ketorolac [From Toradol] AdvReac Swelling Verified 02/11/23 13:28 Family History Other CVA (cerebral vascular accident) Cancer Diabetes Myocardial infarction Surgical History (Updated 03/28/23 @ 09:17 by Mariama Brasher) H/O: hysterectomy History of cholecystectomy Hx of section S/P trigger finger release Social History household members: other details: currently living in a NH for therapy for chronic back pain housing: snf Smoking Status: Former smoker Tobacco: How many years used: 46 how long ago did patient quit smoking: She quit smoking in August or September of 2021. She started smoking at 14 alcohol intake: never substance use type: other details: has a hx of chronic opioid use ROS ROS ED ROS Narrative Constitutional: No fever, no chills. HEENT: No sore throat. No neck pain. No loss of vision. No rhinorrhea. Cardiovascular: No chest pain. No palpitations. No pedal edema. Respiratory: No cough, no shortness of breath. Abdominal: Positive lower abdominal pain. Positive nausea. No vomiting. Constipated, no bowel movement over 5 to 6 days Genitourinary: No dysuria. No hematuria. Musculoskeletal: No myalgias. No arthralgias. Neurologic: No headaches. No dizziness. No lightheadedness. Skin: No rash. No change in color. Psychiatric: No depression. No anxiety. EXAM Physical Exam Narrative Exam Narrative: Afebrile. Vital signs noted. HEENT: Normocephalic. Atraumatic. PERRL, EOMI. Neck soft and supple. No point tenderness or step off. Cardiovascular: Regular rate and rhythm. No murmurs, rubs, or gallops appreciated. Respiratory: No tachypnea. Lungs clear to auscultation bilaterally. Gastrointestinal: Abdomen soft, diffuse with decreased bowel sounds. No rebound or guarding. Neurological: Awake. Alert. Nonfocal, nonlateralizing. Skin: No rash. Normal color. No pallor. Musculoskeletal: No pedal edema. Full range of motion extremities. Const Vital Signs: 03/28/23 08:40 Temperature 95.0 F L Temperature Source Temporal Pulse Rate 122 H Respiratory Rate 18 Blood Pressure 133/76 H Blood Pressure Mean 95 Pulse Ox 100 Oxygen Delivery Method Room Air MDM MDM MDM Narrative Medical decision making narrative: Concern is for constipation versus partial to total bowel obstruction. Total bowel obstruction is less likely as she is not vomiting, but she states she has not really eaten or drank anything over the last 1 to [address] I do feel CT imaging is indicated. I will obtain laboratory work. She will be bolused norm al saline 1 L intravenously. She will be given Zofran for nausea. I reviewed her laboratory work, she has slight leukocytosis of 12.1 which I think is nonspecific, hemoglobin normal at 12.4, hematocrit 39.2, platelet count normal at 347. Sodium is slightly low at 134, but she has normal chloride of 100, I have less concern for dehydration although she has a BUN of 24 and a creatinine of 1.34 which appears to be her baseline. She was bolused normal saline 1 L intravenously. LFTs are grossly unremarkable in review. I reviewed her CT report to look for obstruction, but in review of the radiology report, she has a fecal impaction with mild edema of the rectum which could be from fecal stasis. There is no evidence of an acute obstruction. At this point in time, manual disimpaction was performed with RN as equity research analyst with moderate return of firmer stool. Patient showed improvement afterwards. I feel she can be discharged safely home to increase her fiber in her diet and take an over -the-counter stool softener, and she can continue her gentle laxatives. Return instructions to the emergency department were reviewed. I do not feel that she requires any antibiotics or narcotic pain medication, nor do I feel that she should be given Bentyl which would slow her transit of her stool and cause more constipation. Disposition is discharged home in stable condition. History & Record Review Discussion w/independent historian: Patient Additional record(s) reviewed:: Prior ED visit and Prior labs Lab Data Attestation: I reviewed the patient's lab results. Labs: Laboratory Results - last 24 hr 03/28/23 03/28/23 09:05 09:05 WBC 12.1 H RBC 4.33 Hgb 12.4 Hct 39.2 MCV 90.5 MCH 28.6 MCHC 31.6 L RDW Std Deviation 42.0 RDW Coeff of Anisa 12.7 Plt Count 347 MPV 9.3 Immature Gran % (Auto) 0.400 Neut % (Auto) 71.5 H Lymph % (Auto) 22.8 [place] % (Auto) 3.9 Eos % (Auto) 0.9 Baso % (Auto) 0.5 Absolute Neuts (auto) 8.7 H Absolute Lymphs (auto) 2.76 Nucleated RBC % 0 Sodium 134 L Potassium 4.3 Chloride 100 Carbon Dioxide 22.0 Anion Gap 12 BUN 24 H Creatinine 1.34 H Estim Creat Clear Calc 32.47 Est GFR (MDRD) Af Amer 52 L Est GFR (MDRD) Non-Af 43 L BUN/Creatinine Ratio 17.9 Glucose 374 H Calcium 9.1 Total Bilirubin 0.60 AST 29 ALT 32 Alkaline Phosphatase 75 Total Protein 7.6 Albumin 3.5 Globulin 4.1 Albumin/Globulin Ratio 0.9 Radiography Diagnostic Testing: Clinical Impression(s) from Imaging Studies Abdomen/Pelvis CT 03/28/23 09:01 IMPRESSION: Moderate amount of stool within the rectum. Circumferential wall thickening of the anus may be secondary to edema. Bladder wall thickening may be secondary to cystitis of uncertain chronicity. Atherosclerosis. Fatty infiltration of the liver. Electronically Signed: Courtney Gutierrez MD at 10:10 EDT , Discharge Plan Triage Chief Complaint: Constipation ED Provider: Ellis Peterson Dx/Rx/DC Orders Clinical Impression: Constipation, Fecal impaction in rectum Instructions: ED Constipation (Adult), ED Fecal Impaction, Treated Prescriptions: No Action levothyroxine 175 mcg capsule 175 mcg PO DAILY pantoprazole 40 mg tablet,delayed release (DR/EC) 40 mg PO DAILY dextrose [Glutose-15] 40 % gel 15 g PO Q15M PRN (Reason: Blood Sugar) Rx Instructions: until symptoms of low blood sugar are controlled ranolazine 500 mg tablet extended release 12 hr 500 mg PO BID Qty: 60 11RF insulin glargine-yfgn 100 unit/mL (3 mL) insulin pen 60 unit subcut QHS mirtazapine 15 mg tablet 7.5 mg PO QHS nitroglycerin 0.4 mg tablet, sublingual 0.4 mg sublingual Q5-15M midodrine 10 mg tablet 10 mg PO BID rizatriptan 10 tablet 10 mg PO PRN PRN (Reason: Migraine Symptoms) Label Comments: (DME) pen needle,diabetic, disp unit 29 gauge x 1/2 needle See Rx Instructions .ROUTE .MEDSUPPLY Qty: 100 0RF Rx Instructions: As directed acetaminophen 500 mg Tablet 1,000 mg PO TID PRN (Reason: pain) Qty: 0 0RF polyethylene glycol 3350 17 gram Powder In Packet 17 g PO DAILY PRN PRN (Reason: constipation) Qty: 0 0RF sennosides-docusate sodium [Stool Softener-Stimulant Laxat] 8.6-50 mg Tablet 2 tab PO BID Qty: 0 0RF alum-mag hydroxide-simeth [Mylanta Maximum Strength] 400-400-40 mg/5 mL Suspension 15 ml PO Q4H PRN (Reason: Stomach Upset) lidocaine 4 % adhesive patch,medicated 2 patch TOPICAL DAILY Label Comments: PER CORRECTION MAR PT GETS 2 PATCHES APPLIED TO BACK IN THE AM AND REMOVED AFTER 12 HOURS IN THE PM. metoprolol succinate 25 mg Tablet Extended Release 24 Hr 25 mg PO DAILY Qty: 30 2RF atorvastatin 40 mg tablet 40 mg PO QHS Qty: 30 2RF aspirin [Constance Low Dose Aspirin] 81 mg tablet,delayed release (DR/EC) 81 mg PO DAILY Qty: 30 3RF ondansetron 4 mg tablet,disintegrating 4 mg PO TID PRN (Reason: nausea and vomiting) Qty: 21 0RF insulin lispro 100 unit/mL insulin pen 15 unit SUBCUT TID Rx Instructions: with meals gabapentin 300 mg capsule 600 mg PO BID quetiapine 25 mg tablet 37.5 mg PO QHS lorazepam 0.5 mg tablet 0.5 mg PO Q12H insulin glargine [Lantus Solostar U-100 Insulin] 100 unit/mL (3 mL) insulin pen 30 unit SUBCUT DAILY fenofibrate 50 mg Capsule 50 mg PO QHS Trulicity 3 mg/0.5 mL pen injector SUBCUT MO Primary Care Provider: Lizet Linares Referrals: Lizet Linares MD [Primary Care Provider] - 3-5 Days if not improving Activity Restrictions/Additional Instructions: Increase fiber in your diet. Take an [id number] stool softener. Disposition Disposition: Home, Self Care Discharge Date/Time: 03/28/23 11:30
[2023-03-28 09:08] VITALS: BMI 35.6
[2023-03-28] MEDS: Ondansetron 4 MG/2 ML Vial IV (09:11)
[2023-03-28] MEDS: 0.9% Normal Saline 1,000 ML 999 ML IV (09:11)
[2023-03-28 09:22] LABS: Absolute Lymphocyte Count 2.76 X10^3/uL (0.83-4.51); Absolute Neutrophil Count 8.7 X10^3/uL (2.0-7.7); Basophil# 0.06 X10^3/uL; Basophil% 0.5 % (0-1); Eosinophil# 0.11 X10^3/uL; Eosinophils% 0.9 % (0-5); Hematocrit 39.2 % (37-47); Hemoglobin 12.4 g/dL (12.0-15.0); Lymphocyte # 2.76 X10^3/ul (0.83-4.51); Lymphocyte % 22.8 % (19-41); Mean Corp Hgb Conc 31.6 g/dL (32-36); Mean Corpuscular Hgb 28.6 pg (27.0-32.0); Mean Corpuscular Volume 90.5 fL (81-99); Mean Platelet Vol. 9.3 fl (6.2-12.0); Monocyte# 0.47 X10^3/uL; Monocyte% 3.9 % (0-10); NRBC Flagged by Analyzer 0 % (0-5); Neutrophil # 8.67 X10^3/uL (2.7-7.7); Neutrophil % 71.5 % (47-70); Platelet Count 347 K/mm3 (150-450); RBC Distribution Width CV 12.7 % (11.6-14.6); Red Blood Count 4.33 M/mm3 (4.2-5.4); White Blood Count 12.1 K/mm3 (4.4-11.0)
[2023-03-28 09:31] LABS: ALB/GLOB Ratio 0.9 RATIO (0.9-2.4); AST(SGOT) 29 U/L (15-37); Alanine Aminotransfer ALT/SGPT 32 U/L (13-56); Albumin, Serum 3.5 g/dL (3.2-5.0); Alkaline Phosphatase 75 U/L (45-117); Anion Gap 12 (5-15); BUN 24 mg/dL (7-18); BUN/Creat Ratio 17.9 RATIO (10-20); Calcium,Total 9.1 mg/dL (8.5-10.1); Chloride 100 mmol/L (98-107); Creatinine, Serum 1.34 mg/dL (0.55-1.02); EST Glomerular Filtration Rate 43 mL/min (>60); Est Glom Filt Rate - Afr Amer 52 mL/min (>60); Estimated Creatinine Clearance 32.47 ml/min; Globulin 4.1 g/dL (2.2-4.2); Glucose 374 mg/dL (74-106); Potassium 4.3 mmol/L (3.5-5.1); Protein, Total 7.6 g/dL (6.4-8.2); Sodium Level 134 mmol/L (136-145)
== END 2023-03-28 11:30 | disposition home or self-care (01) ==
PROVIDERS: Emergency Provider Emergency Medicine; PCP Internal Medicine; Visit Provider Emergency Medicine
DX: K56.41 Fecal impaction (principal); E11.22 Type 2 diabetes mellitus with diabetic chronic kidney disease; Z79.4 Long term (current) use of insulin; N18.30 Chronic kidney disease, stage 3 unspecified; I12.9 Hypertensive chronic kidney disease with stage 1 through stage 4 chronic kidney disease, or unspecified chronic kidney disease; Z87.891 Personal history of nicotine dependence; E78.00 Pure hypercholesterolemia, unspecified; G43.909 Migraine, unspecified, not intractable, without status migrainosus; Z79.82 Long term (current) use of aspirin; E03.9 Hypothyroidism, unspecified; Z79.899 Other long term (current) drug therapy; F32.A Depression, unspecified; Z79.85 Long-term (current) use of injectable non-insulin antidiabetic drugs; Z90.710 Acquired absence of both cervix and uterus; Z90.49 Acquired absence of other specified parts of digestive tract
CPT/HCPCS: 74177; 80053; 85025; 99283; J7030; Q9967; A4216; J2405

== ENCOUNTER 2023-06-04 13:49 | Emergency (ER) | payer MEDICARE, MEDICAID, SELFPAY ==
[2023-06-04 13:49] VITALS: BP 147/86; PULSE 87; RESP 18; TEMP 35.9; O2SAT 100
[2023-06-04 15:11] LABS: Absolute Lymphocyte Count 2.58 X10^3/uL (0.83-4.51); Absolute Neutrophil Count 3.6 X10^3/uL (2.0-7.7); Basophil# 0.05 X10^3/uL; Basophil% 0.8 % (0-1); Eosinophil# 0.03 X10^3/uL; Eosinophils% 0.5 % (0-5); Lymphocyte # 2.58 X10^3/ul (0.83-4.51); Lymphocyte % 39.6 % (19-41); Mean Corp Hgb Conc 33.3 g/dL (32-36); Mean Platelet Vol. 10.7 fl (6.2-12.0); Monocyte# 0.21 X10^3/uL; Monocyte% 3.2 % (0-10); NRBC Flagged by Analyzer 0 % (0-5); Neutrophil # 3.61 X10^3/uL (2.7-7.7); Neutrophil % 55.4 % (47-70); Platelet Count 240 K/mm3 (150-450); RBC Distribution Width CV 13.3 % (11.6-14.6); RBC Distribution Width SD 42.1 fl (35.1-43.9); Red Blood Count 4.83 M/mm3 (4.2-5.4); White Blood Count 6.5 K/mm3 (4.4-11.0)
[2023-06-04 15:54] LABS: ALB/GLOB Ratio 0.9 RATIO (0.9-2.4); AST(SGOT) 21 U/L (15-37); Alanine Aminotransfer ALT/SGPT 29 U/L (13-56); Albumin, Serum 3.5 g/dL (3.2-5.0); Alkaline Phosphatase 78 U/L (45-117); Anion Gap 10 (5-15); BUN 14 mg/dL (7-18); BUN/Creat Ratio 10.6 RATIO (10-20); Calcium,Total 9.1 mg/dL (8.5-10.1); Chloride 90 mmol/L (98-107); Creatinine, Serum 1.32 mg/dL (0.55-1.02); EST Glomerular Filtration Rate 44 mL/min (>60); Est Glom Filt Rate - Afr Amer 53 mL/min (>60); Globulin 4.1 g/dL (2.2-4.2); Glucose 491 mg/dL (74-106); Potassium 3.8 mmol/L (3.5-5.1); Protein, Total 7.6 g/dL (6.4-8.2); Sodium Level 127 mmol/L (136-145)
--- NOTE | 2023-06-04 17:28 | CT_ITS ---
STUDY: CT ABDOMEN AND PELVIS WITH CONTRAST REASON FOR EXAM: Female, 57 years old. abd pain RADIATION DOSAGE (If Supplied By Facility): CTDIvol = ( 18.91 ) mGy, DLP = ( 1086.75 ) mGycm TECHNIQUE: Transaxial images were obtained from the dome of the diaphragm to the symphysis pubis without oral contrast. IV 100mL Isovue-370 was administered. Sagittal and coronal images were reconstructed. Individualized dose optimization techniques were used for this CT. COMPARISON: 03/28/2023. FINDINGS: The visualized lung bases are unremarkable. The visualized portions of the heart are within normal limits. There is decreased attenuation of the liver consistent with steatosis. There is hepatomegaly. There has been cholecystectomy. Again seen is a distended common bile duct. Correlate with liver function tests. Normal spleen. Normal pancreas. Normal bilateral adrenal glands. Normal right kidney. Normal left kidney. No definite renal or ureteral stones are seen. There is no hydronephrosis on either side. Evaluation of the GI tract is limited by absence of oral contrast. Cannot exclude stomach wall thickening. No dilated loops of bowel or evidence for obstruction. Cannot exclude segmental thickening of the hazel of the small or large bowel. Cannot exclude enteritis or colitis. Moderate diffuse fecal retention. Appendix within normal limits. There is diffuse atherosclerotic calcification of the abdominal aorta, without a demonstrated aneurysm. Normal inferior vena cava. Normal retroperitoneum. Nondistended urinary bladder. Possible diffuse bladder wall thickening. Possible cystitis, correlate with urinalysis. There is a small umbilical hernia containing fat. Normal osseous structures. CT/Abdomen/Pelvis W IV Cont ONLY IMPRESSION: Cannot exclude cystitis. Dilated common bile duct also present previously. Correlate with liver function tests. Electronically Signed: Lázaro Aparicio MD at 18:26 EDT ,
--- NOTE | 2023-06-04 17:29 | ED.VIS.GI ---
HPI HPI - GI History of Present Illness Chief Complaint: Abd Pain Detail of Chief Complaint: Periumbilical abdominal pain with nausea since last night. Informant: patient Abdominal Pain/Flank Pain Onset: Today and Yesterday Context: Gradual Onset Timing: Continuous Quality: Aching Location: Diffuse Current Severity: Mild Worsened by: Nothing Relieved by: Nothing Nausea/Vomiting/Emesis GI Symptom: Positive for Nausea; Negative for Vomiting Onset: Today and Yesterday Severity: Mild Diarrhea/Melena/Hematochezia GI Symptom: Negative for Diarrhea, Melena or Hematochezia Associated Symptoms Associated Symptoms: Negative for Dysuria, Frequency, Hematuria or Urgency Narrative Narrative: 57-year-old female history of hypertension, diabetes prior and hysterectomy includes abdominal pain with associated nausea. No vomiting or diarrhea. No constipation or dysuria. No fever. Worse today. Came in for evaluation. Denies prior history. Prior similar symptoms: No Recent Illness/Hospitalization: No PFSH PFSH Medical History Carpal tunnel syndrome Chronic back pain Chronic renal failure, stage 3a CKD (chronic kidney disease) stage 3, GFR 30-59 ml/min Contusion of great toe, right Contusion of knee Depression Depressive disorder Diabetes Difficulty in walking, not elsewhere classified Elevated troponin Essential hypertension Fatigue Former smoker History of left heart catheterization (LHC) (~05/21/22) HTN (hypertension) Hyperlipidemia Hypokalemia Hypothyroidism Infection of tooth Intervertebral disc disorder with radiculopathy of lumbar region Kidney disease Kidney stones Migraines Normochromic normocytic anemia Obesity (BMI 35.0-39.9 without comorbidity) Opiate abuse, continuous Orthostatic hypotension Pure hypercholesterolemia Renal insufficiency Stomach ulcer Thyroid disease Type II diabetes mellitus, uncontrolled Home Medications rizatriptan 10 mg tablet 10 mg PO PRN PRN Migraine Symptoms 12/27/17 [History Last Taken Unknown] pen needle,diabetic, disp unit 29 gauge x 1/2, remover and disposal unit #100 ea 06/23/21 [Rx Last Taken Unknown] acetaminophen 500 mg tablet 1,000 mg (2 x 500 mg) PO TID PRN pain #0 tabs 03/27/22 [Rx Last Taken 04/23/22 16:40] polyethylene glycol 3350 17 gram oral powder packet 17 g PO DAILY PRN PRN constipation #0 ea 03/27/22 [Rx Last Taken Unknown] sennosides 8.6 mg-docusate sodium 50 mg tablet (Stool Softener-Stimulant Laxative) 2 tab PO BID #0 tabs 03/27/22 [Rx Last Taken Unknown] aluminum-mag hydroxide-simethicone 400 mg-400 mg-40 mg/5 mL oral susp (Mylanta Maximum Strength) 15 ml PO Q4H PRN Stomach Upset 04/24/22 [History Last Taken 04/24/22] aspirin 81 mg tablet,delayed release (Constance Low Dose Aspirin) 81 mg PO DAILY #30 tabs 05/21/22 [Rx Last Taken Unknown] atorvastatin 40 mg tablet 40 mg PO QHS #30 tabs 05/21/22 [Rx Last Taken Unknown] metoprolol succinate 25 mg tablet,extended release 24 hr 25 mg PO DAILY #30 tabs 05/21/22 [Rx Last Taken Unknown] dextrose 40 % oral gel (Glutose-15) 15 g PO Q15M PRN Blood Sugar 06/12/22 [History Last Taken Unknown] levothyroxine 175 mcg capsule 175 mcg PO DAILY 06/12/22 [History Last Taken Unknown] lidocaine 4 % topical patch 2 patch topical DAILY Back Pain 06/12/22 [History Last Taken Unknown] pantoprazole 40 mg tablet,delayed release 40 mg PO DAILY 06/12/22 [History Last Taken Unknown] ranolazine 500 mg tablet,extended release,12 hr 500 mg PO BID #60 tabs 06/12/22 [Rx Last Taken Unknown] insulin glargine-yfgn 100 unit/mL (3 mL) subcutaneous pen 60 unit subcut QHS 09/09/22 [History Last Taken Unknown] midodrine 10 mg tablet 10 mg PO BID 09/09/22 [History Last Taken Unknown] mirtazapine 15 mg tablet 7.5 mg PO QHS 09/09/22 [History Last Taken Unknown] nitroglycerin 0.4 mg sublingual tablet 0.4 mg sublingual Q5-15M 09/09/22 [History Last Taken Unknown] ondansetron 4 mg disintegrating tablet 4 mg PO TID PRN nausea and vomiting #21 tabs 10/09/22 [Rx Last Taken Unknown] insulin lispro 100 unit/mL subcutaneous pen 15 unit subcut TID 11/05/22 [History Last Taken Unknown] dulaglutide 3 mg/0.5 mL subcutaneous pen injector (Trulicity) mg subcut MO 01/29/23 [History Last Taken Unknown] fenofibrate 50 mg capsule 50 mg PO QHS 01/29/23 [History Last Taken Unknown] insulin glargine 100 unit/mL (3 mL) subcutaneous pen (Lantus Solostar U-100 Insulin) 30 unit subcut DAILY 01/29/23 [History Last Taken Unknown] lorazepam 0.5 mg tablet 0.5 mg PO Q12H anxeity 01/29/23 [History Last Taken Unknown] quetiapine 25 mg tablet 37.5 mg PO QHS 01/29/23 [History Last Taken Unknown] gabapentin 300 mg capsule 600 mg PO BID 02/11/23 [History Last Taken Unknown] Allergy/AdvReac Type Severity Reaction Status Date / Time celecoxib [From Celebrex] Allergy Itching Verified 06/04/23 13:51 ciprofloxacin [From Cipro] Allergy Swelling Verified 06/04/23 13:51 ciprofloxacin HCl Allergy Swelling Verified 06/04/23 13:51 [From Cipro] codeine Allergy Hives Verified 06/04/23 13:51 ibuprofen Allergy Hives Verified 06/04/23 13:51 naproxen Allergy Hives Verified 06/04/23 13:51 Penicillins Allergy Hives Verified 06/04/23 13:51 tramadol HCl [From Ultram] Allergy Hives Verified 06/04/23 13:51 ketorolac [From Toradol] AdvReac Swelling Verified 06/04/23 13:51 Family History Other CVA (cerebral vascular accident) Cancer Diabetes Myocardial infarction Surgical History H/O: hysterectomy History of cholecystectomy Hx of section S/P trigger finger release Social History household members: other details: currently living in a NH for therapy for chronic back pain housing: correction Smoking Status: Former smoker Tobacco: How many years used: 46 how long ago did patient quit smoking: She quit smoking in August or September of 2021. She started smoking at 14 alcohol intake: never substance use type: other details: has a hx of chronic opioid use ROS ROS ED ROS Narrative Abdominal pain Review of Systems ROS Unobtainable: Denies due to encephalopathy Constitutional Constitutional ED: Denies chills or fever(s) ENT ENT ED: Denies ear pain Cardiovascular Cardiovascular: Denies chest pain Respiratory/Chest Respiratory/Chest: Denies cough or dyspnea Gastrointestinal Gastrointestinal: Reports abdominal pain and nausea; Denies constipation, diarrhea, melena or vomiting Genitourinary Genitourinary ED: Denies dysuria or hematuria Musculoskeletal Musculoskeletal: Denies arthralgias Integumentary Denies abscess Neurologic Neurologic: Denies headache(s) Psychiatric Psychiatric: Denies anxiety Endocrine Endocrinology: Denies polydipsia Hematologic/Lymphatic Hematologic/Lymphatic: Denies easy bleeding Allergic/Immunologic Allergic/Immunologic ED: Denies mouth swelling EXAM Physical Exam Narrative Exam Narrative: 57-year-old female vital signs stable afebrile does not look septic toxic. No distress. H EENT exam unremarkable. Neck nontender. Lungs clear to auscultation bilateral. Heart regular rhythm no murmur. Abdomen soft nondistended normal bowel sounds no peritoneal signs. Diffusely tender primarily periumbilically. Not specifically over the right upper quadrant or the McBurney's point. No obvious hernia or mass. No pulsatile mass. No moving all 4 extremities. 1+ pitting edema both lower extremities. Neurologically she is awake alert with no focal motor deficits. Const Vital Signs: 06/04/23 13:49 06/04/23 19:27 Temperature 96.6 F L Temperature Source Temporal Pulse Rate 87 71 Respiratory Rate 18 18 Blood Pressure 147/86 H 146/74 H Blood Pressure Mean 106 98 Pulse Ox 100 94 Oxygen Delivery Method Room Air Room Air Positive well nourished and well developed; Negative for cachectic, contractures or unkempt General Appearance ED: well developed and NAD; Negative for unkempt, cachectic, contractures or pallor Nutritional Appearance: Negative for cachectic HEENT Reports moist mucous membranes; Denies dry mucous membranes normocephalic and atraumatic; Negative for trauma Mouth ED: No dry mucous membranes Mouth: No dry mucous membranes Eyes PERRL and EOMs intact bilaterally General Eye ED: Negative for pale conjunctiva or scleral icterus Neck no lymphadenopathy, supple and no JVD General: Negative for tenderness Carotids: Negative for other Lymph Lymphatic: Negative for other Resp normal respiratory effort and clear to auscultation bilaterally Effort and Inspection: Negative for respiratory distress Auscultation: Negative for rales, rhonchi or wheezes Cardio regular rate, regular rhythm, S1 normal heart sound, S2 normal heart sound and no murmurs Rate: Negative for bradycardia or tachycardic Rhythm: Negative for abnormal rhythm GI non-distended and no masses; Negative for non-tender Inspection: Negative for abdominal distention Auscultation: normoactive bowel sounds Palpation: tender; Negative for guarding, rigid, hepatomegaly, splenomegaly, hernia, mass, pulsatile mass or rebound tenderness present Back/Spine no CVA tenderness General Back: Negative for CVA tenderness Cervical Spine: Negative for cervical spine tenderness Thoracic Spine / Upper Back: Negative for thoracic spinal tenderness Lumbar Spine / Lower Back: Negative for lumbar spinal tenderness Coccyx: Negative for other Extremity full ROM General Extremety ED: Yes edema; Negative for tenderness General Extremity: edema Neuro CN's II-XII intact bilaterally, moves all extremities and no sensory deficits noted Sensorium / Orientation: alert, oriented to person, oriented to place and oriented to time; Negative for orientation impaired, confused or lethargic Motor Exam: strength 5/5 throughout Psych mental status grossly normal and thought process normal Appearance: Negative for unkempt Attitude: No agitated Mood & Affect: Negative for depressed, anxious or tearful Skin no wounds General Skin Exam: Negative for jaundice or pallor Lesions: no lesions Rashes: no rashes Trauma: Negative for abrasion Nails: Negative for discolored MDM MDM MDM Narrative Medical decision making narrative: Six 57-year-old female diffuse abdominal pain with nausea. Prior cholecystectomy and hysterectomy. CAT scan is pending. Treated with IV morphine and Zofran for pain and nausea. She also has lower extremity edema. Repeat exam at 9:21 PM patient doing well. Abdomen benign. We went over her test results. Her blood sugar will be rechecked. She does not check it at home. Take her insulin and diabetic meds as prescribed. Follow-up with her doctor. Have her sodium rechecked. History & Record Review Discussion w/independent historian: Patient Additional record(s) reviewed:: Prior inpatient record, Prior outpatient record, Prior ED visit and Prior labs Lab Data Attestation: I reviewed the patient's lab results. Lab results narrative: CBC is unremarkable. White count 6.5. H&H 14 and 42. Platelets of 240. Chemistries show sodium 127 gap of 10. BUN and creatinine of 14 and 1.3. Liver enzymes unremarkable. Glucose 491. Lipase is 39. Urinalysis is negative. CAT scan of the abdomen pelvis showed no acute abnormality. Labs: Laboratory Results - last 24 hr 06/04/23 06/04/23 06/04/23 15:04 17:45 19:27 WBC 6.5 RBC 4.83 Hgb 14.0 Hct 42.0 MCV 87.0 MCH 29.0 MCHC 33.3 RDW Std Deviation 42.1 RDW Coeff of Anisa 13.3 Plt Count 240 MPV 10.7 Immature Gran % (Auto) 0.500 Neut % (Auto) 55.4 Lymph % (Auto) 39.6 [place] % (Auto) 3.2 Eos % (Auto) 0.5 Baso % (Auto) 0.8 Absolute Neuts (auto) 3.6 Absolute Lymphs (auto) 2.58 Nucleated RBC % 0 Sodium 127 L Potassium 3.8 Chloride 90 L Carbon Dioxide 27.0 Anion Gap 10 BUN 14 Creatinine 1.32 H Est GFR (MDRD) Af Amer 53 L Est GFR (MDRD) Non-Af 44 L BUN/Creatinine Ratio 10.6 Glucose 491 H* Calcium 9.1 Total Bilirubin 0.80 AST 21 ALT 29 Alkaline Phosphatase 78 Total Protein 7.6 Albumin 3.5 Globulin 4.1 Albumin/Globulin Ratio 0.9 Lipase 39 Urine Color Yellow Urine Clarity Clear Urine pH 6.5 Ur Specific [place] 1.010 Urine Protein 30 H Urine Glucose (UA) 1000 H Urine Ketones 15 H Urine Occult Blood 10 H Urine Nitrite Negative Urine Bilirubin Negative Urine Urobilinogen Normal Ur Leukocyte Esterase 25 H Urine RBC 0 SEEN Urine WBC 0-5 SEEN Ur Squamous Epith Cells 0-5 SEEN Urine Bacteria 0 SEEN Urine Mucus 0 SEEN Urine Yeast RARE POC Glucose 379 H Radiography Diagnostic Testing: Clinical Impression(s) from Imaging Studies Abdomen/Pelvis CT 06/04/23 17:28 IMPRESSION: Cannot exclude cystitis. Dilated common bile duct also present previously. Correlate with liver function tests. Electronically Signed: Lázrao Aparicio MD at 18:26 EDT , Discharge Plan Triage Chief Complaint: Abd Pain ED Provider: Bronson Retana Dx/Rx/DC Orders Clinical Impression: Hyperglycemia due to diabetes mellitus, History of diabetes mellitus, Abdominal pain, Acute hyponatremia Instructions: Abdominal Pain, ED Diabetic Hyperglycemia, ED Hyponatremia Prescriptions: No Action levothyroxine 175 mcg capsule 175 mcg PO DAILY pantoprazole 40 mg tablet,delayed release (DR/EC) 40 mg PO DAILY dextrose [Glutose-15] 40 % gel 15 g PO Q15M PRN (Reason: Blood Sugar) Rx Instructions: until symptoms of low blood sugar are controlled ranolazine 500 mg tablet extended release 12 hr 500 mg PO BID Qty: 60 11RF insulin glargine-yfgn 100 unit/mL (3 mL) insulin pen 60 unit subcut QHS mirtazapine 15 mg tablet 7.5 mg PO QHS nitroglycerin 0.4 mg tablet, sublingual 0.4 mg sublingual Q5-15M midodrine 10 mg tablet 10 mg PO BID rizatriptan 10 tablet 10 mg PO PRN PRN (Reason: Migraine Symptoms) Patient Comments: (DME) pen needle,diabetic, disp unit 29 gauge x 1/2 needle See Rx Instructions .ROUTE .MEDSUPPLY Qty: 100 0RF Rx Instructions: As directed acetaminophen 500 mg Tablet 1,000 mg PO TID PRN (Reason: pain) Qty: 0 0RF polyethylene glycol 3350 17 gram Powder In Packet 17 g PO DAILY PRN PRN (Reason: constipation) Qty: 0 0RF sennosides-docusate sodium [Stool Softener-Stimulant Laxat] 8.6-50 mg Tablet 2 tab PO BID Qty: 0 0RF alum-mag hydroxide-simeth [Mylanta Maximum Strength] 400-400-40 mg/5 mL Suspension 15 ml PO Q4H PRN (Reason: Stomach Upset) lidocaine 4 % adhesive patch,medicated 2 patch TOPICAL DAILY Patient Comments: PER [facility] PT GETS 2 PATCHES APPLIED TO BACK IN THE AM AND REMOVED AFTER 12 HOURS IN THE PM. metoprolol succinate 25 mg Tablet Extended Release 24 Hr 25 mg PO DAILY Qty: 30 2RF atorvastatin 40 mg tablet 40 mg PO QHS Qty: 30 2RF aspirin [Constance Low Dose Aspirin] 81 mg tablet,delayed release (DR/EC) 81 mg PO DAILY Qty: 30 3RF ondansetron 4 mg tablet,disintegrating 4 mg PO TID PRN (Reason: nausea and vomiting) Qty: 21 0RF insulin lispro 100 unit/mL insulin pen 15 unit SUBCUT TID Rx Instructions: with meals gabapentin 300 mg capsule 600 mg PO BID quetiapine 25 mg tablet 37.5 mg PO QHS lorazepam 0.5 mg tablet 0.5 mg PO Q12H insulin glargine [Lantus Solostar U-100 Insulin] 100 unit/mL (3 mL) insulin pen 30 unit SUBCUT DAILY fenofibrate 50 mg Capsule 50 mg PO QHS Trulicity 3 mg/0.5 mL pen injector SUBCUT MO Primary Care Provider: Jarred Lopez Referrals: Jarred Lopez MD [Primary Care Provider] - 3-5 Days Activity Restrictions/Additional Instructions: No specific cause for your abdominal pain. Your sodium is low you may want to add some salt to your food. That should be rechecked in 1 to 2 weeks by your primary care physician. Watch her blood sugars closely. The one we just checked was 271. Follow-up with your doctor in 3 to 5 days. Return if feeling worse. Disposition Disposition: Home, Self Care
[2023-06-04] MEDS: morphine 8 MG/ML Syringe 6 MG IV (17:44)
[2023-06-04] MEDS: 0.9% Normal Saline 1,000 ML 999 ML IV (17:44)
[2023-06-04] MEDS: Ondansetron 4 MG/2 ML Vial IV ×2 (17:44→19:21)
[2023-06-04 17:50] LABS: Lipase 39 U/L (13-75)
[2023-06-04 17:51] LABS: Bacteria 0 SEEN /hpf (None Seen); Mucous, Urine 0 SEEN /hpf (<or=2+); Red Blood Cells-Urine 0 SEEN /hpf (0-5)
[2023-06-04 17:55] LABS: Color, Urine Yellow (Yellow); Glucose, Dipstick 1000 mg/dl (Normal); Ketone-Dipstick 15 mg/dl (Negative); Leukocyte Esterase-Dipstick 25 /ul (Negative); Nitrite-Dipstick Negative (Negative); Occult Blood-Urine 10 /ul (Negative); Protein-Dipstick 30 mg/dl (Negative); Urine Bilirubin Dipstick Negative (Negative); Urine Clarity Clear (Clear); Urine Urobilinogen Normal (Normal); Urine pH 6.5 (5.0 - 8.0)
[2023-06-04] MEDS: Insulin Lispro 100 UNIT/ML INSULN.PEN 12 UNIT SC (18:20)
[2023-06-04 18:25] LABS: Squamous Epithelial Cells - UA 0-5 SEEN /hpf (5-10); White Blood Cells 0-5 SEEN /hpf (0-5); Yeast-Urine RARE /hpf (None Seen)
[2023-06-04] MEDS: Morphine 4 MG/ML Syringe IV (19:21)
[2023-06-04 19:27] VITALS: BP 146/74; PULSE 71; RESP 18; O2SAT 94
[2023-06-04 19:28] VITALS: BMI 37.9
[2023-06-04 19:46] LABS: Bedside Glucose 379 mg/dL (74-106)
[2023-06-04 21:40] VITALS: BP 118/58; PULSE 85; RESP 18; O2SAT 93
[2023-06-04 21:42] LABS: Bedside Glucose 274 mg/dL (74-106)
== END 2023-06-04 21:41 | disposition home or self-care (01) ==
PROVIDERS: Emergency Provider Emergency Medicine; PCP Family Medicine; Visit Provider Emergency Medicine
DX: R10.9 Unspecified abdominal pain (principal); E11.65 Type 2 diabetes mellitus with hyperglycemia; E11.22 Type 2 diabetes mellitus with diabetic chronic kidney disease; Z79.4 Long term (current) use of insulin; N18.31 Chronic kidney disease, stage 3a; E78.00 Pure hypercholesterolemia, unspecified; R11.2 Nausea with vomiting, unspecified; Z87.891 Personal history of nicotine dependence; I12.9 Hypertensive chronic kidney disease with stage 1 through stage 4 chronic kidney disease, or unspecified chronic kidney disease; G43.909 Migraine, unspecified, not intractable, without status migrainosus; Z79.82 Long term (current) use of aspirin; Z79.899 Other long term (current) drug therapy; E03.9 Hypothyroidism, unspecified; Z79.85 Long-term (current) use of injectable non-insulin antidiabetic drugs; F32.A Depression, unspecified; Z90.49 Acquired absence of other specified parts of digestive tract; Z90.710 Acquired absence of both cervix and uterus; E87.1 Hypo-osmolality and hyponatremia
CPT/HCPCS: 74177; 80053; 81001; 82962; 83690; 85025; 96361; 96374; 96375; 96376; 99283; Q9967; A4216; J2405

== ENCOUNTER 2023-06-06 17:46 | Emergency (ER) | payer MEDICARE, MEDICAID, SELFPAY ==
[2023-06-06 17:48] VITALS: BP 158/96; PULSE 100; RESP 20; TEMP 36.1; O2SAT 99
--- NOTE | 2023-06-06 18:00 | EDS_ITS ---
HPI History of Present Illness Chief Complaint: General Illness Detail of Chief Complaint: Diffuse pain. Nausea. Informant: patient Onset/Context/Timing Onset: Days Context: Gradual Onset Timing: Continuous Current Severity: Mild Maximum Severity: Mild Narrative Narrative: 57-year-old female history of chronic kidney disease, diabetes. Seen here 2 days ago by myself. Had extensive work-up including CAT scan and labs. She had hyponatremia at that time with sodium 127. Sugar was elevated 491 which was treated with IV fluids and insulin. She states that her legs hurt. She just does not feel well. Nauseated but no vomiting or diarrhea. No fever or dysuria. UA the other day was negative. CAT scan of her abdomen the other day was unremarkable chronic. Prior similar symptoms: Yes Recent Illness/Hospitalization: No PFSH PFSH Medical History Carpal tunnel syndrome Chronic back pain Chronic renal failure, stage 3a CKD (chronic kidney disease) stage 3, GFR 30-59 ml/min Contusion of great toe, right Contusion of knee Depression Depressive disorder Diabetes Difficulty in walking, not elsewhere classified Elevated troponin Essential hypertension Fatigue Former smoker History of left heart catheterization (LHC) (~05/21/22) HTN (hypertension) Hyperlipidemia Hypokalemia Hypothyroidism Infection of tooth Intervertebral disc disorder with radiculopathy of lumbar region Kidney disease Kidney stones Migraines Normochromic normocytic anemia Obesity (BMI 35.0-39.9 without comorbidity) Opiate abuse, continuous Orthostatic hypotension Pure hypercholesterolemia Renal insufficiency Stomach ulcer Thyroid disease Type II diabetes mellitus, uncontrolled Home Medications rizatriptan 10 mg tablet 10 mg PO PRN PRN Migraine Symptoms 12/27/17 [History Last Taken Unknown] pen needle,diabetic, disp unit 29 gauge x 1/2, remover and disposal unit #100 ea 06/23/21 [Rx Last Taken Unknown] acetaminophen 500 mg tablet 1,000 mg (2 x 500 mg) PO TID PRN pain #0 tabs 03/27/22 [Rx Last Taken 04/23/22 16:40] polyethylene glycol 3350 17 gram oral powder packet 17 g PO DAILY PRN PRN constipation #0 ea 03/27/22 [Rx Last Taken Unknown] sennosides 8.6 mg-docusate sodium 50 mg tablet (Stool Softener-Stimulant Laxative) 2 tab PO BID #0 tabs 03/27/22 [Rx Last Taken Unknown] aluminum-mag hydroxide-simethicone 400 mg-400 mg-40 mg/5 mL oral susp (Mylanta Maximum Strength) 15 ml PO Q4H PRN Stomach Upset 04/24/22 [History Last Taken 04/24/22] aspirin 81 mg tablet,delayed release (Constance Low Dose Aspirin) 81 mg PO DAILY #30 tabs 05/21/22 [Rx Last Taken Unknown] atorvastatin 40 mg tablet 40 mg PO QHS #30 tabs 05/21/22 [Rx Last Taken Unknown] metoprolol succinate 25 mg tablet,extended release 24 hr 25 mg PO DAILY #30 tabs 05/21/22 [Rx Last Taken Unknown] dextrose 40 % oral gel (Glutose-15) 15 g PO Q15M PRN Blood Sugar 06/12/22 [History Last Taken Unknown] levothyroxine 175 mcg capsule 175 mcg PO DAILY 06/12/22 [History Last Taken Unknown] lidocaine 4 % topical patch 2 patch topical DAILY Back Pain 06/12/22 [History Last Taken Unknown] pantoprazole 40 mg tablet,delayed release 40 mg PO DAILY 06/12/22 [History Last Taken Unknown] ranolazine 500 mg tablet,extended release,12 hr 500 mg PO BID #60 tabs 06/12/22 [Rx Last Taken Unknown] insulin glargine-yfgn 100 unit/mL (3 mL) subcutaneous pen 60 unit subcut QHS 09/09/22 [History Last Taken Unknown] midodrine 10 mg tablet 10 mg PO BID 09/09/22 [History Last Taken Unknown] mirtazapine 15 mg tablet 7.5 mg PO QHS 09/09/22 [History Last Taken Unknown] nitroglycerin 0.4 mg sublingual tablet 0.4 mg sublingual Q5-15M 09/09/22 [History Last Taken Unknown] ondansetron 4 mg disintegrating tablet 4 mg PO TID PRN nausea and vomiting #21 tabs 10/09/22 [Rx Last Taken Unknown] insulin lispro 100 unit/mL subcutaneous pen 15 unit subcut TID 11/05/22 [History Last Taken Unknown] dulaglutide 3 mg/0.5 mL subcutaneous pen injector (Trulicity) mg subcut MO 01/29/23 [History Last Taken Unknown] fenofibrate 50 mg capsule 50 mg PO QHS 01/29/23 [History Last Taken Unknown] insulin glargine 100 unit/mL (3 mL) subcutaneous pen (Lantus Solostar U-100 Insulin) 30 unit subcut DAILY 01/29/23 [History Last Taken Unknown] lorazepam 0.5 mg tablet 0.5 mg PO Q12H anxeity 01/29/23 [History Last Taken Unknown] quetiapine 25 mg tablet 37.5 mg PO QHS 01/29/23 [History Last Taken Unknown] gabapentin 300 mg capsule 600 mg PO BID 02/11/23 [History Last Taken Unknown] Allergy/AdvReac Type Severity Reaction Status Date / Time celecoxib [From Celebrex] Allergy Itching Verified 06/06/23 17:47 ciprofloxacin [From Cipro] Allergy Swelling Verified 06/06/23 17:47 ciprofloxacin HCl Allergy Swelling Verified 06/06/23 17:47 [From Cipro] codeine Allergy Hives Verified 06/06/23 17:47 ibuprofen Allergy Hives Verified 06/06/23 17:47 naproxen Allergy Hives Verified 06/06/23 17:47 Penicillins Allergy Hives Verified 06/06/23 17:47 tramadol HCl [From Ultram] Allergy Hives Verified 06/06/23 17:47 ketorolac [From Toradol] AdvReac Swelling Verified 06/06/23 17:47 Family History Other CVA (cerebral vascular accident) Cancer Diabetes Myocardial infarction Surgical History H/O: hysterectomy History of cholecystectomy Hx of section S/P trigger finger release Social History household members: other details: currently living in a NH for therapy for chronic back pain housing: jail Smoking Status: Former smoker Tobacco: How many years used: 46 how long ago did patient quit smoking: She quit smoking in August or September of 2021. She started smoking at 14 alcohol intake: never substance use type: other details: has a hx of chronic opioid use ROS ROS ED ROS Narrative Pain. Leg swelling bilaterally. Review of Systems ROS Unobtainable: Denies due to encephalopathy Constitutional Constitutional ED: Denies chills or fever(s) Eyes Eyes: Denies blurry vision ENT ENT ED: Denies ear pain Cardiovascular Cardiovascular: Denies chest pain Respiratory/Chest Respiratory/Chest: Denies cough or dyspnea Gastrointestinal Gastrointestinal: Reports abdominal pain and nausea; Denies constipation, diarrhea, melena or vomiting Genitourinary Genitourinary ED: Denies dysuria or hematuria Musculoskeletal Musculoskeletal: Denies arthralgias Integumentary Denies abscess Neurologic Neurologic: Denies headache(s) Psychiatric Psychiatric: Denies anxiety Endocrine Endocrinology: Denies cold intolerance Hematologic/Lymphatic Hematologic/Lymphatic: Reports none Allergic/Immunologic Allergic/Immunologic ED: Denies mouth swelling or tongue swelling EXAM Physical Exam Narrative Exam Narrative: 57-year-old female. Vital signs stable afebrile. She does not look septic or toxic she is no distress. She is emotionally upset and tearful. No one else present in room. H EENT exam unremarkable. Moist extremities. Lungs clear to auscultation bilaterally. Heart regular rhythm rate about 100 no murmur. Abdomen soft nondistended normal bowel sounds no peritoneal signs. No hernia or mass. No obstruction. Moving all 4 extremities. 1+ edema both lower extremities. Neurologically she is awake and alert with no focal motor deficits. Back nontender. Const Vital Signs: 06/06/23 17:48 06/06/23 20:09 Temperature 96.9 F L Temperature Source Temporal Pulse Rate 100 71 Respiratory Rate 20 H 16 Blood Pressure 158/96 H 178/97 H Blood Pressure Mean 116 124 Pulse Ox 99 97 Oxygen Delivery Method Room Air Room Air Positive well nourished and well developed; Negative for cachectic, contractures or unkempt General Appearance ED: well developed and NAD; Negative for unkempt, cachectic, contractures, cyanotic, diaphoretic or pallor Nutritional Appearance: Negative for cachectic HEENT Reports moist mucous membranes Negative for trauma or tenderness Eyes PERRL and EOMs intact bilaterally General Eye ED: Negative for pale conjunctiva or scleral icterus Neck no lymphadenopathy, supple and no JVD General: Negative for tenderness Lymph Lymphatic: Negative for other Chest Wall inspection of chest normal and palpation of chest normal Chest: Negative for other Resp normal respiratory effort and clear to auscultation bilaterally Effort and Inspection: Negative for retractions Auscultation: Negative for rales, rhonchi or wheezes Cardio regular rate, regular rhythm, S1 normal heart sound, S2 normal heart sound and no murmurs GI normal to inspection, nondistended, normoactive bowel sounds, non-tender and non-distended Inspection: Negative for abdominal distention Auscultation: normoactive bowel sounds Palpation: soft; Negative for tender, guarding, mass or rebound tenderness present Back/Spine no CVA tenderness General Back: Negative for CVA tenderness Cervical Spine: Negative for cervical spine tenderness Thoracic Spine / Upper Back: Negative for thoracic spinal tenderness Extremity normal to inspection Extremity Narrative: Except trace to 1+ edema bilaterally. Calves are nontender without cords. General Extremety ED: Yes edema General Extremity: edema Neuro oriented x3 and CN's II-XII intact bilaterally Sensorium / Orientation: alert; Negative for orientation impaired, lethargic or stuporous Motor Exam: strength 5/5 throughout Psych Negative for mental status grossly normal Appearance: Negative for unkempt Attitude: No agitated Mood & Affect: depressed, anxious and tearful Skin no rashes or lesions noted, no wounds and skin turgor normal General Skin Exam: elasticity normal; Negative for jaundice or pallor Lesions: No lesion noted Rashes: No rashes noted Trauma: Negative for abrasion Wounds: Negative for wounds noted MDM MDM MDM Narrative Medical decision making narrative: 57-year-old female with diabetes. Complaining acute on chronic pain. Nausea. She was seen 2 days ago by myself and extensive work-up including CAT scan of her abdomen urinalysis basically was unremarkable except she had a hyponatremia with a sodium 127. Her blood sugar was elevated 491 which was treated with fluids and subcu insulin. Her UA and CAT scan were unremarkable. Today she will be given Zofran for nausea. She has multiple allergies to nonnarcotic pain meds. I do not think this warrants narcotic pain medication. Labs to be obtained I do not think she needs imaging. Repeat exam patient is doing well at 9:10 PM. She will be discharged home with outpatient follow-up. Watch her blood sugars closely. Repeat blood sugar at 927 was 442. She was given a second dose of nodular and subcu 10 units for a total of 24 between the 2 dosages. Blood sugar be rechecked at 1030 if it is coming down she will be discharged home. History & Record Review Discussion w/independent historian: Family Additional record(s) reviewed:: Prior inpatient record, Prior outpatient record, Prior ED visit and Prior labs Lab Data Attestation: I reviewed the patient's lab results. Lab results narrative: CBC unremarkable. White count of 6.4. H&H of 13 and 42. Platelets 233. Chemistries show a sodium 129 previously was 127 on yesterday. Gap of 12. BUN and creatinine 10 and 1.34. She has a history of renal insufficiency. Glucose elevated 554. Acetone is negative. Labs not significantly changed from yesterday and the sugar is more elevated. She is not in DKA. Blood sugar 434. Labs: Laboratory Results - last 24 hr 06/06/23 06/06/23 06/06/23 18:05 18:35 20:39 WBC 6.4 RBC 4.77 Hgb 13.7 Hct 42.6 MCV 89.3 MCH 28.7 MCHC 32.2 RDW Std Deviation 44.1 H RDW Coeff of Anisa 13.4 Plt Count 233 MPV 10.7 Immature Gran % (Auto) 0.500 Neut % (Auto) 50.5 Lymph % (Auto) 44.0 H [place] % (Auto) 3.3 Eos % (Auto) 0.9 Baso % (Auto) 0.8 Absolute Neuts (auto) 3.2 Absolute Lymphs (auto) 2.81 Nucleated RBC % 0 Sodium 129 L Potassium 3.6 Chloride 94 L Carbon Dioxide 23.0 Anion Gap 12 BUN 10 Creatinine 1.34 H Est GFR (MDRD) Af Amer 52 L Est GFR (MDRD) Non-Af 43 L BUN/Creatinine Ratio 7.5 L Glucose 554 H* Calcium 8.9 Acetone Level NEGATIVE POC Glucose 434 H Discharge Plan Triage Chief Complaint: General Illness ED Provider: Bronson Retana Dx/Rx/DC Orders Clinical Impression: Hyperglycemia due to diabetes mellitus, Chronic pain Instructions: ED Diabetic Hyperglycemia Prescriptions: No Action levothyroxine 175 mcg capsule 175 mcg PO DAILY pantoprazole 40 mg tablet,delayed release (DR/EC) 40 mg PO DAILY dextrose [Glutose-15] 40 % gel 15 g PO Q15M PRN (Reason: Blood Sugar) Rx Instructions: until symptoms of low blood sugar are controlled ranolazine 500 mg tablet extended release 12 hr 500 mg PO BID Qty: 60 11RF insulin glargine-yfgn 100 unit/mL (3 mL) insulin pen 60 unit subcut QHS mirtazapine 15 mg tablet 7.5 mg PO QHS nitroglycerin 0.4 mg tablet, sublingual 0.4 mg sublingual Q5-15M midodrine 10 mg tablet 10 mg PO BID rizatriptan 10 tablet 10 mg PO PRN PRN (Reason: Migraine Symptoms) Patient Comments: (DME) pen needle,diabetic, disp unit 29 gauge x 1/2 needle See Rx Instructions .ROUTE .MEDSUPPLY Qty: 100 0RF Rx Instructions: As directed acetaminophen 500 mg Tablet 1,000 mg PO TID PRN (Reason: pain) Qty: 0 0RF polyethylene glycol 3350 17 gram Powder In Packet 17 g PO DAILY PRN PRN (Reason: constipation) Qty: 0 0RF sennosides-docusate sodium [Stool Softener-Stimulant Laxat] 8.6-50 mg Tablet 2 tab PO BID Qty: 0 0RF alum-mag hydroxide-simeth [Mylanta Maximum Strength] 400-400-40 mg/5 mL Suspension 15 ml PO Q4H PRN (Reason: Stomach Upset) lidocaine 4 % adhesive patch,medicated 2 patch TOPICAL DAILY Patient Comments: PER RESIDENTIAL MAR PT GETS 2 PATCHES APPLIED TO BACK IN THE AM AND REMOVED AFTER 12 HOURS IN THE PM. metoprolol succinate 25 mg Tablet Extended Release 24 Hr 25 mg PO DAILY Qty: 30 2RF atorvastatin 40 mg tablet 40 mg PO QHS Qty: 30 2RF aspirin [Constance Low Dose Aspirin] 81 mg tablet,delayed release (DR/EC) 81 mg PO DAILY Qty: 30 3RF ondansetron 4 mg tablet,disintegrating 4 mg PO TID PRN (Reason: nausea and vomiting) Qty: 21 0RF insulin lispro 100 unit/mL insulin pen 15 unit SUBCUT TID Rx Instructions: with meals gabapentin 300 mg capsule 600 mg PO BID quetiapine 25 mg tablet 37.5 mg PO QHS lorazepam 0.5 mg tablet 0.5 mg PO Q12H insulin glargine [Lantus Solostar U-100 Insulin] 100 unit/mL (3 mL) insulin pen 30 unit SUBCUT DAILY fenofibrate 50 mg Capsule 50 mg PO QHS Trulicity 3 mg/0.5 mL pen injector SUBCUT MO Primary Care Provider: Jarred Lopez Referrals: Jarred Lopez MD [Primary Care Provider] - As soon as possible Activity Restrictions/Additional Instructions: Watch her blood sugars very closely. Take your medications as prescribed. Recheck your blood sugar prior to going to bed tonight Call and follow-up your primary care physician this coming week. Disposition Disposition: Home, Self Care
[2023-06-06] MEDS: Ondansetron 4 MG/2 ML Vial IV (18:09)
[2023-06-06 18:14] LABS: Absolute Lymphocyte Count 2.81 X10^3/uL (0.83-4.51); Absolute Neutrophil Count 3.2 X10^3/uL (2.0-7.7); Basophil# 0.05 X10^3/uL; Basophil% 0.8 % (0-1); Eosinophil# 0.06 X10^3/uL; Eosinophils% 0.9 % (0-5); Hematocrit 42.6 % (37-47); Hemoglobin 13.7 g/dL (12.0-15.0); Lymphocyte # 2.81 X10^3/ul (0.83-4.51); Mean Corp Hgb Conc 32.2 g/dL (32-36); Mean Corpuscular Hgb 28.7 pg (27.0-32.0); Mean Corpuscular Volume 89.3 fL (81-99); Mean Platelet Vol. 10.7 fl (6.2-12.0); Monocyte# 0.21 X10^3/uL; Monocyte% 3.3 % (0-10); NRBC Flagged by Analyzer 0 % (0-5); Neutrophil # 3.22 X10^3/uL (2.7-7.7); Neutrophil % 50.5 % (47-70); Platelet Count 233 K/mm3 (150-450); RBC Distribution Width CV 13.4 % (11.6-14.6); RBC Distribution Width SD 44.1 fl (35.1-43.9); Red Blood Count 4.77 M/mm3 (4.2-5.4); White Blood Count 6.4 K/mm3 (4.4-11.0)
[2023-06-06 18:33] LABS: Anion Gap 12 (5-15); BUN 10 mg/dL (7-18); BUN/Creat Ratio 7.5 RATIO (10-20); Calcium,Total 8.9 mg/dL (8.5-10.1); Chloride 94 mmol/L (98-107); Creatinine, Serum 1.34 mg/dL (0.55-1.02); EST Glomerular Filtration Rate 43 mL/min (>60); Est Glom Filt Rate - Afr Amer 52 mL/min (>60); Glucose 554 mg/dL (74-106); Potassium 3.6 mmol/L (3.5-5.1); Sodium Level 129 mmol/L (136-145)
[2023-06-06 18:42] VITALS: BMI 38.0
[2023-06-06] MEDS: Insulin Lispro 100 UNIT/ML INSULN.PEN 14 UNIT SC (18:55)
[2023-06-06 20:09] VITALS: BP 178/97; PULSE 71; RESP 16; O2SAT 97
[2023-06-06 20:57] LABS: Bedside Glucose 434 mg/dL (74-106)
[2023-06-06] MEDS: Insulin Lispro 100 UNIT/ML INSULN.PEN 10 UNIT SC (21:29)
[2023-06-06 22:38] LABS: Bedside Glucose 327 mg/dL (74-106)
[2023-06-06 22:38] LABS: Bedside Glucose 442 mg/dL (74-106)
--- NOTE | 2023-06-06 22:49 | EDS_ITS ---
HPI History of Present Illness Chief Complaint: General Illness [facility] Medical History Carpal tunnel syndrome Chronic back pain Chronic renal failure, stage 3a CKD (chronic kidney disease) stage 3, GFR 30-59 ml/min Contusion of great toe, right Contusion of knee Depression Depressive disorder Diabetes Difficulty in walking, not elsewhere classified Elevated troponin Essential hypertension Fatigue Former smoker History of left heart catheterization (LHC) (~05/21/22) HTN (hypertension) Hyperlipidemia Hypokalemia Hypothyroidism Infection of tooth Intervertebral disc disorder with radiculopathy of lumbar region Kidney disease Kidney stones Migraines Normochromic normocytic anemia Obesity (BMI 35.0-39.9 without comorbidity) Opiate abuse, continuous Orthostatic hypotension Pure hypercholesterolemia Renal insufficiency Stomach ulcer Thyroid disease Type II diabetes mellitus, uncontrolled Home Medications rizatriptan 10 mg tablet 10 mg PO PRN PRN Migraine Symptoms 12/27/17 [History Last Taken Unknown] pen needle,diabetic, disp unit 29 gauge x 1/2, remover and disposal unit #100 ea 06/23/21 [Rx Last Taken Unknown] acetaminophen 500 mg tablet 1,000 mg (2 x 500 mg) PO TID PRN pain #0 tabs 03/27/22 [Rx Last Taken 04/23/22 16:40] polyethylene glycol 3350 17 gram oral powder packet 17 g PO DAILY PRN PRN constipation #0 ea 03/27/22 [Rx Last Taken Unknown] sennosides 8.6 mg-docusate sodium 50 mg tablet (Stool Softener-Stimulant Laxative) 2 tab PO BID #0 tabs 03/27/22 [Rx Last Taken Unknown] aluminum-mag hydroxide-simethicone 400 mg-400 mg-40 mg/5 mL oral susp (Mylanta Maximum Strength) 15 ml PO Q4H PRN Stomach Upset 04/24/22 [History Last Taken 04/24/22] aspirin 81 mg tablet,delayed release (Constance Low Dose Aspirin) 81 mg PO DAILY #30 tabs 05/21/22 [Rx Last Taken Unknown] atorvastatin 40 mg tablet 40 mg PO QHS #30 tabs 05/21/22 [Rx Last Taken Unknown] metoprolol succinate 25 mg tablet,extended release 24 hr 25 mg PO DAILY #30 tabs 05/21/22 [Rx Last Taken Unknown] dextrose 40 % oral gel (Glutose-15) 15 g PO Q15M PRN Blood Sugar 06/12/22 [History Last Taken Unknown] levothyroxine 175 mcg capsule 175 mcg PO DAILY 06/12/22 [History Last Taken Unknown] lidocaine 4 % topical patch 2 patch topical DAILY Back Pain 06/12/22 [History Last Taken Unknown] pantoprazole 40 mg tablet,delayed release 40 mg PO DAILY 06/12/22 [History Last Taken Unknown] ranolazine 500 mg tablet,extended release,12 hr 500 mg PO BID #60 tabs 06/12/22 [Rx Last Taken Unknown] insulin glargine-yfgn 100 unit/mL (3 mL) subcutaneous pen 60 unit subcut QHS 09/09/22 [History Last Taken Unknown] midodrine 10 mg tablet 10 mg PO BID 09/09/22 [History Last Taken Unknown] mirtazapine 15 mg tablet 7.5 mg PO QHS 09/09/22 [History Last Taken Unknown] nitroglycerin 0.4 mg sublingual tablet 0.4 mg sublingual Q5-15M 09/09/22 [History Last Taken Unknown] ondansetron 4 mg disintegrating tablet 4 mg PO TID PRN nausea and vomiting #21 tabs 10/09/22 [Rx Last Taken Unknown] insulin lispro 100 unit/mL subcutaneous pen 15 unit subcut TID 11/05/22 [History Last Taken Unknown] dulaglutide 3 mg/0.5 mL subcutaneous pen injector (Trulicity) mg subcut MO 01/29/23 [History Last Taken Unknown] fenofibrate 50 mg capsule 50 mg PO QHS 01/29/23 [History Last Taken Unknown] insulin glargine 100 unit/mL (3 mL) subcutaneous pen (Lantus Solostar U-100 Insulin) 30 unit subcut DAILY 01/29/23 [History Last Taken Unknown] lorazepam 0.5 mg tablet 0.5 mg PO Q12H anxeity 01/29/23 [History Last Taken Unknown] quetiapine 25 mg tablet 37.5 mg PO QHS 01/29/23 [History Last Taken Unknown] gabapentin 300 mg capsule 600 mg PO BID 02/11/23 [History Last Taken Unknown] Allergy/AdvReac Type Severity Reaction Status Date / Time celecoxib [From Celebrex] Allergy Itching Verified 06/06/23 17:47 ciprofloxacin [From Cipro] Allergy Swelling Verified 06/06/23 17:47 ciprofloxacin HCl Allergy Swelling Verified 06/06/23 17:47 [From Cipro] codeine Allergy Hives Verified 06/06/23 17:47 ibuprofen Allergy Hives Verified 06/06/23 17:47 naproxen Allergy Hives Verified 06/06/23 17:47 Penicillins Allergy Hives Verified 06/06/23 17:47 tramadol HCl [From Ultram] Allergy Hives Verified 06/06/23 17:47 ketorolac [From Toradol] AdvReac Swelling Verified 06/06/23 17:47 Family History Other CVA (cerebral vascular accident) Cancer Diabetes Myocardial infarction Surgical History H/O: hysterectomy History of cholecystectomy Hx of section S/P trigger finger release Social History household members: other details: currently living in a NH for therapy for chronic back pain housing: long term Smoking Status: Former smoker Tobacco: How many years used: 46 how long ago did patient quit smoking: She quit smoking in August or September of 2021. She started smoking at 14 alcohol intake: never substance use type: other details: has a hx of chronic opioid use EXAM Physical Exam Const Vital Signs: 06/06/23 17:48 06/06/23 20:09 Temperature 96.9 F L Temperature Source Temporal Pulse Rate 100 71 Respiratory Rate 20 H 16 Blood Pressure 158/96 H 178/97 H Blood Pressure Mean 116 124 Pulse Ox 99 97 Oxygen Delivery Method Room Air Room Air [facility] Lab Data Labs: Laboratory Results - last 24 hr 06/06/23 06/06/23 06/06/23 18:05 18:35 20:39 WBC 6.4 RBC 4.77 Hgb 13.7 Hct 42.6 MCV 89.3 MCH 28.7 MCHC 32.2 RDW Std Deviation 44.1 H RDW Coeff of Anisa 13.4 Plt Count 233 MPV 10.7 Immature Gran % (Auto) 0.500 Neut % (Auto) 50.5 Lymph % (Auto) 44.0 H [place] % (Auto) 3.3 Eos % (Auto) 0.9 Baso % (Auto) 0.8 Absolute Neuts (auto) 3.2 Absolute Lymphs (auto) 2.81 Nucleated RBC % 0 Sodium 129 L Potassium 3.6 Chloride 94 L Carbon Dioxide 23.0 Anion Gap 12 BUN 10 Creatinine 1.34 H Est GFR (MDRD) Af Amer 52 L Est GFR (MDRD) Non-Af 43 L BUN/Creatinine Ratio 7.5 L Glucose 554 H* Calcium 8.9 Acetone Level NEGATIVE POC Glucose 434 H 06/06/23 06/06/23 21:24 22:20 WBC RBC Hgb Hct MCV MCH MCHC RDW Std Deviation RDW Coeff of Anisa Plt Count MPV Immature Gran % (Auto) Neut % (Auto) Lymph % (Auto) [place] % (Auto) Eos % (Auto) Baso % (Auto) Absolute Neuts (auto) Absolute Lymphs (auto) Nucleated RBC % Sodium Potassium Chloride Carbon Dioxide Anion Gap BUN Creatinine Est GFR (MDRD) Af Amer Est GFR (MDRD) Non-Af BUN/Creatinine Ratio Glucose Calcium Acetone Level POC Glucose 442 H 327 H Discharge Plan Triage Chief Complaint: General Illness ED Provider: Bronson Retana Dx/Rx/DC Orders Clinical Impression: Hyperglycemia due to diabetes mellitus, Chronic pain Instructions: ED Diabetic Hyperglycemia Prescriptions: No Action levothyroxine 175 mcg capsule 175 mcg PO DAILY pantoprazole 40 mg tablet,delayed release (DR/EC) 40 mg PO DAILY dextrose [Glutose-15] 40 % gel 15 g PO Q15M PRN (Reason: Blood Sugar) Rx Instructions: until symptoms of low blood sugar are controlled ranolazine 500 mg tablet extended release 12 hr 500 mg PO BID Qty: 60 11RF insulin glargine-yfgn 100 unit/mL (3 mL) insulin pen 60 unit subcut QHS mirtazapine 15 mg tablet 7.5 mg PO QHS nitroglycerin 0.4 mg tablet, sublingual 0.4 mg sublingual Q5-15M midodrine 10 mg tablet 10 mg PO BID rizatriptan 10 tablet 10 mg PO PRN PRN (Reason: Migraine Symptoms) Patient Comments: (DME) pen needle,diabetic, disp unit 29 gauge x 1/2 needle See Rx Instructions .ROUTE .MEDSUPPLY Qty: 100 0RF Rx Instructions: As directed acetaminophen 500 mg Tablet 1,000 mg PO TID PRN (Reason: pain) Qty: 0 0RF polyethylene glycol 3350 17 gram Powder In Packet 17 g PO DAILY PRN PRN (Reason: constipation) Qty: 0 0RF sennosides-docusate sodium [Stool Softener-Stimulant Laxat] 8.6-50 mg Tablet 2 tab PO BID Qty: 0 0RF alum-mag hydroxide-simeth [Mylanta Maximum Strength] 400-400-40 mg/5 mL Suspension 15 ml PO Q4H PRN (Reason: Stomach Upset) lidocaine 4 % adhesive patch,medicated 2 patch TOPICAL DAILY Patient Comments: PER SENIOR CARE MAR PT GETS 2 PATCHES APPLIED TO BACK IN THE AM AND REMOVED AFTER 12 HOURS IN THE PM. metoprolol succinate 25 mg Tablet Extended Release 24 Hr 25 mg PO DAILY Qty: 30 2RF atorvastatin 40 mg tablet 40 mg PO QHS Qty: 30 2RF aspirin [Constance Low Dose Aspirin] 81 mg tablet,delayed release (DR/EC) 81 mg PO DAILY Qty: 30 3RF ondansetron 4 mg tablet,disintegrating 4 mg PO TID PRN (Reason: nausea and vomiting) Qty: 21 0RF insulin lispro 100 unit/mL insulin pen 15 unit SUBCUT TID Rx Instructions: with meals gabapentin 300 mg capsule 600 mg PO BID quetiapine 25 mg tablet 37.5 mg PO QHS lorazepam 0.5 mg tablet 0.5 mg PO Q12H insulin glargine [Lantus Solostar U-100 Insulin] 100 unit/mL (3 mL) insulin pen 30 unit SUBCUT DAILY fenofibrate 50 mg Capsule 50 mg PO QHS Trulicity 3 mg/0.5 mL pen injector SUBCUT MO Primary Care Provider: Jarred Lopez Referrals: Jarred Lopez MD [Primary Care Provider] - As soon as possible Activity Restrictions/Additional Instructions: Watch her blood sugars very closely. Take your medications as prescribed. Recheck your blood sugar prior to going to bed tonight Call and follow-up your primary care physician this coming week. Disposition Disposition: Home, Self Care
== END 2023-06-06 23:21 | disposition home or self-care (01) ==
PROVIDERS: Emergency Provider Emergency Medicine; PCP Family Medicine; Visit Provider Emergency Medicine
DX: E11.65 Type 2 diabetes mellitus with hyperglycemia (principal); E11.22 Type 2 diabetes mellitus with diabetic chronic kidney disease; Z79.4 Long term (current) use of insulin; N18.31 Chronic kidney disease, stage 3a; I12.9 Hypertensive chronic kidney disease with stage 1 through stage 4 chronic kidney disease, or unspecified chronic kidney disease; E78.00 Pure hypercholesterolemia, unspecified; Z87.891 Personal history of nicotine dependence; G43.909 Migraine, unspecified, not intractable, without status migrainosus; Z79.899 Other long term (current) drug therapy; Z79.82 Long term (current) use of aspirin; E03.9 Hypothyroidism, unspecified; K21.9 Gastro-esophageal reflux disease without esophagitis; Z79.85 Long-term (current) use of injectable non-insulin antidiabetic drugs; Z90.710 Acquired absence of both cervix and uterus; Z90.49 Acquired absence of other specified parts of digestive tract; G89.29 Other chronic pain
CPT/HCPCS: 80048; 82009; 82962; 85025; 96361; 96374; 99283; J7030; A4216; J2405

== ENCOUNTER 2023-06-10 14:53 | Emergency (ER) | payer MEDICARE, MEDICAID, SELFPAY ==
[2023-06-10 14:57] VITALS: BP 119/88; PULSE 93; RESP 18; TEMP 35.8; O2SAT 100
--- NOTE | 2023-06-10 15:18 | EDS_ITS ---
HPI History of Present Illness Chief Complaint: Constipation Informant: patient Onset/Context/Timing Onset: Weeks Narrative Narrative: Patient presents secondary to constipation. She reports difficulty with bowel m ovements for the past 7 days. She has tried Dulcolax, MiraLAX, and magnesium citrate at home without improvement. She states that she feels like she needs to go, however is unable to pass any stool. She is passing gas. She reports 1 prior incident with significant constipation, but typically does not have chronic problems with this. She denies fever or chills. She has reported some mild nausea. [facility] Medical History (Updated 06/10/23 @ 17:[address] Raisa Mc MD) Carpal tunnel syndrome Chronic back pain CKD (chronic kidney disease) stage 3, GFR 30-59 ml/min Depression Diabetes Difficulty in walking, not elsewhere classified Elevated troponin Essential hypertension Fatigue Former smoker History of left heart catheterization (LHC) (~05/21/22) HTN (hypertension) Hyperlipidemia Hypokalemia Hypothyroidism Intervertebral disc disorder with radiculopathy of lumbar region Kidney stones Migraines Normochromic normocytic anemia Obesity (BMI 35.0-39.9 without comorbidity) Opiate abuse, continuous Orthostatic hypotension Stomach ulcer Thyroid disease Type II diabetes mellitus, uncontrolled Home Medications rizatriptan 10 mg tablet 10 mg PO PRN PRN Migraine Symptoms 12/27/17 [History Last Taken Unknown] pen needle,diabetic, disp unit 29 gauge x 1/2, remover and disposal unit #100 ea 06/23/21 [Rx Last Taken Unknown] acetaminophen 500 mg tablet 1,000 mg (2 x 500 mg) PO TID PRN pain #0 tabs 03/27/22 [Rx Last Taken 04/23/22 16:40] polyethylene glycol 3350 17 gram oral powder packet 17 g PO DAILY PRN PRN constipation #0 ea 03/27/22 [Rx Last Taken Unknown] sennosides 8.6 mg-docusate sodium 50 mg tablet (Stool Softener-Stimulant Laxative) 2 tab PO BID #0 tabs 03/27/22 [Rx Last Taken Unknown] aluminum-mag hydroxide-simethicone 400 mg-400 mg-40 mg/5 mL oral susp (Mylanta Maximum Strength) 15 ml PO Q4H PRN Stomach Upset 04/24/22 [History Last Taken 04/24/22] aspirin 81 mg tablet,delayed release (Constance Low Dose Aspirin) 81 mg PO DAILY #30 tabs 05/21/22 [Rx Last Taken Unknown] atorvastatin 40 mg tablet 40 mg PO QHS #30 tabs 05/21/22 [Rx Last Taken Unknown] metoprolol succinate 25 mg tablet,extended release 24 hr 25 mg PO DAILY #30 tabs 05/21/22 [Rx Last Taken Unknown] dextrose 40 % oral gel (Glutose-15) 15 g PO Q15M PRN Blood Sugar 06/12/22 [History Last Taken Unknown] levothyroxine 175 mcg capsule 175 mcg PO DAILY 06/12/22 [History Last Taken Unknown] lidocaine 4 % topical patch 2 patch topical DAILY Back Pain 06/12/22 [History Last Taken Unknown] pantoprazole 40 mg tablet,delayed release 40 mg PO DAILY 06/12/22 [History Last Taken Unknown] ranolazine 500 mg tablet,extended release,12 hr 500 mg PO BID #60 tabs 06/12/22 [Rx Last Taken Unknown] insulin glargine-yfgn 100 unit/mL (3 mL) subcutaneous pen 60 unit subcut QHS 09/09/22 [History Last Taken Unknown] midodrine 10 mg tablet 10 mg PO BID 09/09/22 [History Last Taken Unknown] mirtazapine 15 mg tablet 7.5 mg PO QHS 09/09/22 [History Last Taken Unknown] nitroglycerin 0.4 mg sublingual tablet 0.4 mg sublingual Q5-15M 09/09/22 [History Last Taken Unknown] ondansetron 4 mg disintegrating tablet 4 mg PO TID PRN nausea and vomiting #21 tabs 10/09/22 [Rx Last Taken Unknown] insulin lispro 100 unit/mL subcutaneous pen 15 unit subcut TID 11/05/22 [History Last Taken Unknown] dulaglutide 3 mg/0.5 mL subcutaneous pen injector (Trulicity) mg subcut MO 01/29/23 [History Last Taken Unknown] fenofibrate 50 mg capsule 50 mg PO QHS 01/29/23 [History Last Taken Unknown] insulin glargine 100 unit/mL (3 mL) subcutaneous pen (Lantus Solostar U-100 Insulin) 30 unit subcut DAILY 01/29/23 [History Last Taken Unknown] lorazepam 0.5 mg tablet 0.5 mg PO Q12H anxeity 01/29/23 [History Last Taken Unknown] quetiapine 25 mg tablet 37.5 mg PO QHS 01/29/23 [History Last Taken Unknown] gabapentin 300 mg capsule 600 mg PO BID 02/11/23 [History Last Taken Unknown] Allergy/AdvReac Type Severity Reaction Status Date / Time celecoxib [From Celebrex] Allergy Itching Verified 06/10/23 14:56 ciprofloxacin [From Cipro] Allergy Swelling Verified 06/10/23 14:56 ciprofloxacin HCl Allergy Swelling Verified 06/10/23 14:56 [From Cipro] codeine Allergy Hives Verified 06/10/23 14:56 ibuprofen Allergy Hives Verified 06/10/23 14:56 naproxen Allergy Hives Verified 06/10/23 14:56 Penicillins Allergy Hives Verified 06/10/23 14:56 tramadol HCl [From Ultram] Allergy Hives Verified 06/10/23 14:56 ketorolac [From Toradol] AdvReac Swelling Verified 06/10/23 14:56 Family History Other CVA (cerebral vascular accident) Cancer Diabetes Myocardial infarction Surgical History H/O: hysterectomy History of cholecystectomy Hx of section S/P trigger finger release Social History household members: other details: currently living in a NH for therapy for chronic back pain housing: long-term Smoking Status: Former smoker Tobacco: How many years used: 46 how long ago did patient quit smoking: She quit smoking in August or September of 2021. She started smoking at 14 alcohol intake: never substance use type: other details: has a hx of chronic opioid use ROS ROS ED Constitutional Constitutional ED: Denies chills or fever(s) Eyes Eyes: Denies change in vision or discharge from eye(s) ENT ENT ED: Denies discharge from eye(s), rhinorrhea or sore throat Cardiovascular Cardiovascular: Denies chest pain or palpitations Respiratory/Chest Respiratory/Chest: Denies cough or dyspnea Gastrointestinal Gastrointestinal: Reports abdominal pain, constipation and nausea; Denies diarrhea or vomiting Genitourinary Genitourinary ED: Denies dysuria Musculoskeletal Musculoskeletal: Denies back pain or extremity pain Integumentary Denies Abrasions or rash Neurologic Neurologic: Denies headache(s) or weakness Allergic/Immunologic Allergic/Immunologic ED: Denies lip swelling or urticaria EXAM Physical Exam Const Vital Signs: 06/10/23 14:57 06/10/23 16:53 Temperature 96.4 F L Temperature Source Temporal Pulse Rate 93 Respiratory Rate 18 16 Blood Pressure 119/88 H Blood Pressure Mean 98 Pulse Ox 100 Oxygen Delivery Method Room Air Positive well nourished and well developed General Appearance ED: well developed HEENT Reports normocephalic and head/scalp atraumatic Eyes PERRL and EOMs intact bilaterally Neck supple Chest Wall inspection of chest normal and palpation of chest normal Resp normal respiratory effort and clear to auscultation bilaterally Cardio regular rate and regular rhythm GI GI Narrative: Hypoactive bowel sounds. No focal tenderness. Palpation: soft Extremity normal to inspection Neuro oriented x3 and no sensory deficits noted Sensorium / Orientation: alert Motor Exam: strength 5/5 throughout Psych mental status grossly normal Skin no rashes or lesions noted MDM MDM MDM Narrative Medical decision making narrative: Abdominal x-ray obtained to evaluate for degree of constipation or bowel obstruction. Radiography Diagnostic Testing: Clinical Impression(s) from Imaging Studies KUB X-Ray 06/10/23 15:20 IMPRESSION: [id number] stool the transverse and descending colon which may represent early constipation. Electronically Signed: Ankit Paige MD at 16:12 EDT Reading Location ID and State: [facility] / [place] Tel , Service support , Treatment and Re-Evaluation :: Abdominal x-ray per my interpretation reveals significant amount of stool in the transverse, descending, and at the rectum. No evidence of bowel obstruction. Radiology interpretation is reviewed. Manual disimpaction performed at bedside with a large amount of stool removed. Following this soapsuds enema is performed. Patient had good results. At this time she does feel significantly improved. She will follow a bland diet and closely monitor her bowel movements. Discharge Plan Triage Chief Complaint: Constipation ED Provider: Raisa Mc Dx/Rx/DC Orders Clinical Impression: Constipation Instructions: ED Constipation (Adult) Prescriptions: No Action levothyroxine 175 mcg capsule 175 mcg PO DAILY pantoprazole 40 mg tablet,delayed release (DR/EC) 40 mg PO DAILY dextrose [Glutose-15] 40 % gel 15 g PO Q15M PRN (Reason: Blood Sugar) Rx Instructions: until symptoms of low blood sugar are controlled ranolazine 500 mg tablet extended release 12 hr 500 mg PO BID Qty: 60 11RF insulin glargine-yfgn 100 unit/mL (3 mL) insulin pen 60 unit subcut QHS mirtazapine 15 mg tablet 7.5 mg PO QHS nitroglycerin 0.4 mg tablet, sublingual 0.4 mg sublingual Q5-15M midodrine 10 mg tablet 10 mg PO BID rizatriptan 10 tablet 10 mg PO PRN PRN (Reason: Migraine Symptoms) Patient Comments: (DME) pen needle,diabetic, disp unit 29 gauge x 1/2 needle See Rx Instructions .ROUTE .MEDSUPPLY Qty: 100 0RF Rx Instructions: As directed acetaminophen 500 mg Tablet 1,000 mg PO TID PRN (Reason: pain) Qty: 0 0RF polyethylene glycol 3350 17 gram Powder In Packet 17 g PO DAILY PRN PRN (Reason: constipation) Qty: 0 0RF sennosides-docusate sodium [Stool Softener-Stimulant Laxat] 8.6-50 mg Tablet 2 tab PO BID Qty: 0 0RF alum-mag hydroxide-simeth [Mylanta Maximum Strength] 400-400-40 mg/5 mL Suspension 15 ml PO Q4H PRN (Reason: Stomach Upset) lidocaine 4 % adhesive patch,medicated 2 patch TOPICAL DAILY Patient Comments: PER LONGTERM MAR PT GETS 2 PATCHES APPLIED TO BACK IN THE AM AND REMOVED AFTER 12 HOURS IN THE PM. metoprolol succinate 25 mg Tablet Extended Release 24 Hr 25 mg PO DAILY Qty: 30 2RF atorvastatin 40 mg tablet 40 mg PO QHS Qty: 30 2RF aspirin [Constance Low Dose Aspirin] 81 mg tablet,delayed release (DR/EC) 81 mg PO DAILY Qty: 30 3RF ondansetron 4 mg tablet,disintegrating 4 mg PO TID PRN (Reason: nausea and vomiting) Qty: 21 0RF insulin lispro 100 unit/mL insulin pen 15 unit SUBCUT TID Rx Instructions: with meals gabapentin 300 mg capsule 600 mg PO BID quetiapine 25 mg tablet 37.5 mg PO QHS lorazepam 0.5 mg tablet 0.5 mg PO Q12H insulin glargine [Lantus Solostar U-100 Insulin] 100 unit/mL (3 mL) insulin pen 30 unit SUBCUT DAILY fenofibrate 50 mg Capsule 50 mg PO QHS Trulicity 3 mg/0.5 mL pen injector SUBCUT MO Primary Care Provider: Jarred Lopez Referrals: Jarred Lopez MD [Primary Care Provider] - 3-5 Days if not improving Disposition Disposition: Home, Self Care
--- NOTE | 2023-06-10 15:20 | RAD_ITS ---
EXAM: XR ABDOMEN, 1 VIEW CLINICAL INDICATION: constipation TECHNIQUE: Frontal supine view of the abdomen/pelvis. COMPARISON: No relevant prior studies available. FINDINGS: LOWER THORAX: No acute pathology. GASTROINTESTINAL TRACT: There is [id number] stool seen within the transverse and descending colon. Non-obstructive. No bowel or stomach distention. ORGANS: Unremarkable as visualized. No organomegaly. No abnormal calcifications. BONES/JOINTS: No acute pathology. SOFT TISSUES: No acute pathology. RAD/Abdomen Single View IMPRESSION: [id number] stool the transverse and descending colon which may represent early constipation. Electronically Signed: Ankit Paige MD at 16:12 EDT ,
[2023-06-10 16:53] VITALS: RESP 16
== END 2023-06-10 18:01 | disposition home or self-care (01) ==
PROVIDERS: Emergency Provider Emergency Medicine; PCP Family Medicine; Visit Provider Emergency Medicine
DX: K59.00 Constipation, unspecified (principal); E11.22 Type 2 diabetes mellitus with diabetic chronic kidney disease; Z79.4 Long term (current) use of insulin; N18.30 Chronic kidney disease, stage 3 unspecified; Z87.891 Personal history of nicotine dependence; E78.5 Hyperlipidemia, unspecified; I12.9 Hypertensive chronic kidney disease with stage 1 through stage 4 chronic kidney disease, or unspecified chronic kidney disease; G43.909 Migraine, unspecified, not intractable, without status migrainosus; Z79.899 Other long term (current) drug therapy; Z79.82 Long term (current) use of aspirin; E03.9 Hypothyroidism, unspecified; F32.A Depression, unspecified; Z79.85 Long-term (current) use of injectable non-insulin antidiabetic drugs; Z90.710 Acquired absence of both cervix and uterus; Z90.49 Acquired absence of other specified parts of digestive tract
CPT/HCPCS: 74018; 99284

== ENCOUNTER 2023-11-19 08:19 | Inpatient (IN) | payer MEDICARE, MEDICAID, SELFPAY ==
[2023-11-19 08:20] VITALS: BP 139/60; PULSE 97; RESP 16; TEMP 35.9; O2SAT 94; BMI 36.9
[2023-11-19 08:35] LABS: Absolute Lymphocyte Count 4.21 X10^3/uL (0.83-4.51); Basophil# 0.08 X10^3/uL; Basophil% 0.7 % (0-1); Eosinophil# 0.05 X10^3/uL; Eosinophils% 0.4 % (0-5); Hematocrit 40.2 % (37-47); Hemoglobin 13.7 g/dL (12.0-15.0); Lymphocyte # 4.21 X10^3/ul (0.83-4.51); Lymphocyte % 35.7 % (19-41); Mean Corp Hgb Conc 34.1 g/dL (32-36); Mean Corpuscular Hgb 29.9 pg (27.0-32.0); Mean Corpuscular Volume 87.8 fL (81-99); Mean Platelet Vol. 10.9 fl (6.2-12.0); Monocyte# 0.39 X10^3/uL; Monocyte% 3.3 % (0-10); NRBC Flagged by Analyzer 0 % (0-5); Neutrophil # 7.03 X10^3/uL (2.7-7.7); Neutrophil % 59.6 % (47-70); Platelet Count 306 K/mm3 (150-450); RBC Distribution Width CV 13.5 % (11.6-14.6); RBC Distribution Width SD 43.6 fl (35.1-43.9); Red Blood Count 4.58 M/mm3 (4.2-5.4); White Blood Count 11.8 K/mm3 (4.4-11.0)
--- NOTE | 2023-11-19 08:46 | EX.ED.DYSGE1 ---
HPI History of Present Illness Chief Complaint: Hyperglycemia Informant: patient and EMS Narrative Narrative: 58-year-old female presenting to the emergency room with hyperglycemia. Patient states she is on day 4 of diarrhea with nausea. She states she has not taken any insulin for 4 days because she has not felt well. However she has been able to eat. Yesterday eating eggs lara and potatoes for lunch and Ramen for dinner. Today she was too weak to get out of bed. She notes that her legs hurt her. She denies any fever, recent antibiotic use, travel, recent hospitalizations, bad food exposure or known sick contacts. She tried Imodium with no relief. She was incontinent for EMS. Nursing notes dried stool throughout the perineum. Prehospital EKG demonstrated a sinus rhythm with a ventricular rate of 98 bpm. [facility] Medical History Carpal tunnel syndrome Chronic back pain CKD (chronic kidney disease) stage 3, GFR 30-59 ml/min Depression Diabetes Difficulty in walking, not elsewhere classified Elevated troponin Essential hypertension Fatigue Former smoker History of left heart catheterization (LHC) (~05/21/22) HTN (hypertension) Hyperlipidemia Hypokalemia Hypothyroidism Intervertebral disc disorder with radiculopathy of lumbar region Kidney stones Migraines Normochromic normocytic anemia Obesity (BMI 35.0-39.9 without comorbidity) Opiate abuse, continuous Orthostatic hypotension Stomach ulcer Thyroid disease Type II diabetes mellitus, uncontrolled Home Medications rizatriptan 10 mg tablet 10 mg PO PRN PRN Migraine Symptoms 12/27/17 [History Last Taken Unknown] pen needle,diabetic, disp unit 29 gauge x 1/2 , remover and disposal unit #100 ea 06/23/21 [Rx Last Taken Unknown] acetaminophen 500 mg tablet 1,000 mg (2 x 500 mg) PO TID PRN pain #0 tabs 03/27/22 [Rx Last Taken 04/23/22 16:40] polyethylene glycol 3350 17 gram oral powder packet 17 g PO DAILY PRN PRN constipation #0 ea 03/27/22 [Rx Last Taken Unknown] sennosides 8.6 mg-docusate sodium 50 mg tablet (Stool Softener-Stimulant Laxative) 2 tab PO BID #0 tabs 03/27/22 [Rx Last Taken Unknown] aluminum-mag hydroxide-simethicone 400 mg-400 mg-40 mg/5 mL oral susp (Mylanta Maximum Strength) 15 ml PO Q4H PRN Stomach Upset 04/24/22 [History Last Taken 04/24/22] aspirin 81 mg tablet,delayed release (Constance Low Dose Aspirin) 81 mg PO DAILY #30 tabs 05/21/22 [Rx Last Taken Unknown] atorvastatin 40 mg tablet 40 mg PO QHS #30 tabs 05/21/22 [Rx Last Taken Unknown] metoprolol succinate 25 mg tablet,extended release 24 hr 25 mg PO DAILY #30 tabs 05/21/22 [Rx Last Taken Unknown] dextrose 40 % oral gel (Glutose-15) 15 g PO Q15M PRN Blood Sugar 06/12/22 [History Last Taken Unknown] levothyroxine 175 mcg capsule 175 mcg PO DAILY 06/12/22 [History Last Taken Unknown] lidocaine 4 % topical patch 2 patch topical DAILY Back Pain 06/12/22 [History Last Taken Unknown] pantoprazole 40 mg tablet,delayed release 40 mg PO DAILY 06/12/22 [History Last Taken Unknown] ranolazine 500 mg tablet,extended release,12 hr 500 mg PO BID #60 tabs 06/12/22 [Rx Last Taken Unknown] insulin glargine-yfgn 100 unit/mL (3 mL) subcutaneous pen 60 unit subcut QHS 09/09/22 [History Last Taken Unknown] midodrine 10 mg tablet 10 mg PO BID 09/09/22 [History Last Taken Unknown] mirtazapine 15 mg tablet 7.5 mg PO QHS 09/09/22 [History Last Taken Unknown] nitroglycerin 0.4 mg sublingual tablet 0.4 mg sublingual Q5-15M 09/09/22 [History Last Taken Unknown] ondansetron 4 mg disintegrating tablet 4 mg PO TID PRN nausea and vomiting #21 tabs 10/09/22 [Rx Last Taken Unknown] insulin lispro 100 unit/mL subcutaneous pen 15 unit subcut TID 11/05/22 [History Last Taken Unknown] dulaglutide 3 mg/0.5 mL subcutaneous pen injector (Trulicity) mg subcut MO 01/29/23 [History Last Taken Unknown] fenofibrate 50 mg capsule 50 mg PO QHS 01/29/23 [History Last Taken Unknown] insulin glargine 100 unit/mL (3 mL) subcutaneous pen (Lantus Solostar U-100 Insulin) 30 unit subcut DAILY 01/29/23 [History Last Taken Unknown] lorazepam 0.5 mg tablet 0.5 mg PO Q12H anxeity 01/29/23 [History Last Taken Unknown] quetiapine 25 mg tablet 37.5 mg PO QHS 01/29/23 [History Last Taken Unknown] gabapentin 300 mg capsule 600 mg PO BID 02/11/23 [History Last Taken Unknown] Allergy/AdvReac Type Severity Reaction Status Date / Time celecoxib [From Celebrex] Allergy Itching Verified 06/10/23 14:56 ciprofloxacin [From Cipro] Allergy Swelling Verified 06/10/23 14:56 ciprofloxacin HCl Allergy Swelling Verified 06/10/23 14:56 [From Cipro] codeine Allergy Hives Verified 06/10/23 14:56 ibuprofen Allergy Hives Verified 06/10/23 14:56 naproxen Allergy Hives Verified 06/10/23 14:56 Penicillins Allergy Hives Verified 06/10/23 14:56 tramadol HCl [From Ultram] Allergy Hives Verified 06/10/23 14:56 ketorolac [From Toradol] AdvReac Swelling Verified 06/10/23 14:56 Family History Other CVA (cerebral vascular accident) Cancer Diabetes Myocardial infarction Surgical History H/O: hysterectomy History of cholecystectomy Hx of section S/P trigger finger release Social History household members: other details: currently living in a NH for therapy for chronic back pain housing: shelter Smoking Status: Former smoker Tobacco: How many years used: 46 how long ago did patient quit smoking: She quit smoking in August or September of 2021. She started smoking at 14 alcohol intake: never substance use type: other details: has a hx of chronic opioid use ROS ROS ED ROS Narrative Generalized weakness Constitutional Constitutional ED: Reports chills; Denies fever(s) or weight loss Eyes Eyes: Denies change in vision or diplopia ENT ENT ED: Denies ear pain, rhinorrhea or sore throat Cardiovascular Cardiovascular: Denies chest pain, orthopnea, palpitations or racing heartbeat Respiratory/Chest Respiratory/Chest: Denies cough, dyspnea or orthopnea Gastrointestinal Gastrointestinal: Reports diarrhea and nausea; Denies abdominal pain or vomiting Genitourinary Genitourinary ED: Denies dysuria, hematuria or urinary frequency Musculoskeletal Musculoskeletal: Reports myalgias and other Details: Bilateral leg pain ; Denies arthralgias, back pain or neck pain Integumentary Denies abscess or rash Neurologic Neurologic: Denies headache(s) or weakness Psychiatric Psychiatric: Denies anxiety, depression, suicidal ideation or suicidal thoughts Endocrine Endocrinology: Denies polydipsia, polyphagia or polyuria Allergic/Immunologic Allergic/Immunologic ED: Denies mouth swelling, tongue swelling or urticaria EXAM Physical Exam Const Vital Signs: 11/19/23 08:20 Temperature 96.7 F L Temperature Source Temporal Pulse Rate 97 Respiratory Rate 16 Blood Pressure 139/60 H Blood Pressure Mean 86 Pulse Ox 94 Positive well nourished, well developed and obese General Appearance ED: well developed Nutritional Appearance: obese HEENT Reports normocephalic, head/scalp atraumatic and moist mucous membranes Eyes PERRL and EOMs intact bilaterally Neck no lymphadenopathy, supple and no JVD Resp normal respiratory effort and clear to auscultation bilaterally Cardio regular rate, regular rhythm and no murmurs GI normal to inspection, nondistended, normoactive bowel sounds and non-tender Palpation: soft Back/Spine no CVA tenderness and normal ROM Extremity normal to inspection General Extremety ED: Negative for edema General Extremity: Negative for edema Neuro oriented x3 and CN's II-XII intact bilaterally Sensorium / Orientation: alert Motor Exam: strength 5/5 throughout Psych mental status grossly normal Mood & Affect: tearful; Negative for depressed Skin no rashes or lesions noted and no wounds Skin Narrative: Diffuse dry skin. No rashes noted MDM MDM MDM Narrative Medical decision making narrative: Basic blood work showed a white count 11.8 hemoglobin 13.7. Creatinine slightly elevated at 1.68 with a BUN of 16. Sodium 127 with a glucose of 484. Lipase 39 normal liver enzymes. Acetone negative. Patient received a liter of IV fluids. Blood sugar is coming down. Will continue hydration. Patient received oxycodone for the pain in her legs. The patient states that she is really unable to care for herself in this state resulting in fecal incontinence. I will speak with the hospitalist regarding admission. We are awaiting the patient to give us a stool specimen. Lab Data Attestation: I reviewed the patient's lab results. Labs: Laboratory Results - last 24 hr 11/19/23 11/19/23 08:24 10:14 WBC 11.8 H RBC 4.58 Hgb 13.7 Hct 40.2 MCV 87.8 MCH 29.9 MCHC 34.1 RDW Std Deviation 43.6 RDW Coeff of Anisa 13.5 Plt Count 306 MPV 10.9 Immature Gran % (Auto) 0.300 Neut % (Auto) 59.6 Lymph % (Auto) 35.7 [place] % (Auto) 3.3 Eos % (Auto) 0.4 Baso % (Auto) 0.7 Absolute Neuts (auto) 7.0 Absolute Lymphs (auto) 4.21 Nucleated RBC % 0 Sodium 127 L Potassium 3.4 L Chloride 92 L Carbon Dioxide 24.0 Anion Gap 11 BUN 16 Creatinine 1.68 H Estim Creat Clear Calc 34.64 Est GFR (MDRD) Af Amer 40 L Est GFR (MDRD) Non-Af 33 L BUN/Creatinine Ratio 9.5 L Glucose 484 H* Calcium 9.6 Total Bilirubin 0.60 Direct Bilirubin 0.16 AST 30 ALT 33 Alkaline Phosphatase 73 Total Protein 8.5 H Albumin 3.9 Globulin 4.6 H Lipase 39 Urine Color Yellow Urine Clarity Sl. Cloudy Urine pH 6.0 Ur Specific Peytona 1.015 Urine Protein 30 H Urine Glucose (UA) 1000 H Urine Ketones Negative Urine Occult Blood 10 H Urine Nitrite Negative Urine Bilirubin Negative Urine Urobilinogen Normal Ur Leukocyte Esterase 100 H Acetone Level NEGATIVE Discharge Plan Triage Chief Complaint: Hyperglycemia Other Complaint: Nausea/Vomiting/Diarrhea ED Provider: Zack Choi Dx/Rx/DC Orders Prescriptions: No Action levothyroxine 175 mcg capsule 175 mcg PO DAILY pantoprazole 40 mg tablet,delayed release (DR/EC) 40 mg PO DAILY dextrose [Glutose-15] 40 % gel 15 g PO Q15M PRN (Reason: Blood Sugar) Rx Instructions: until symptoms of low blood sugar are controlled ranolazine 500 mg tablet extended release 12 hr 500 mg PO BID Qty: 60 11RF insulin glargine-yfgn 100 unit/mL (3 mL) insulin pen 60 unit subcut QHS mirtazapine 15 mg tablet 7.5 mg PO QHS nitroglycerin 0.4 mg tablet, sublingual 0.4 mg sublingual Q5-15M midodrine 10 mg tablet 10 mg PO BID rizatriptan 10 tablet 10 mg PO PRN PRN (Reason: Migraine Symptoms) Patient Comments: (DME) pen needle,diabetic, disp unit 29 gauge x 1/2 needle See Rx Instructions .ROUTE .MEDSUPPLY Qty: 100 0RF Rx Instructions: As directed acetaminophen 500 mg Tablet 1,000 mg PO TID PRN (Reason: pain) Qty: 0 0RF polyethylene glycol 3350 17 gram Powder In Packet 17 g PO DAILY PRN PRN (Reason: constipation) Qty: 0 0RF sennosides-docusate sodium [Stool Softener-Stimulant Laxat] 8.6-50 mg Tablet 2 tab PO BID Qty: 0 0RF alum-mag hydroxide-simeth [Mylanta Maximum Strength] 400-400-40 mg/5 mL Suspension 15 ml PO Q4H PRN (Reason: Stomach Upset) lidocaine 4 % adhesive patch,medicated 2 patch TOPICAL DAILY Patient Comments: PER INTERMEDIATE MAR PT GETS 2 PATCHES APPLIED TO BACK IN THE AM AND REMOVED AFTER 12 HOURS IN THE PM. metoprolol succinate 25 mg Tablet Extended Release 24 Hr 25 mg PO DAILY Qty: 30 2RF atorvastatin 40 mg tablet 40 mg PO QHS Qty: 30 2RF aspirin [Constance Low Dose Aspirin] 81 mg tablet,delayed release (DR/EC) 81 mg PO DAILY Qty: 30 3RF ondansetron 4 mg tablet,disintegrating 4 mg PO TID PRN (Reason: nausea and vomiting) Qty: 21 0RF insulin lispro 100 unit/mL insulin pen 15 unit SUBCUT TID Rx Instructions: with meals gabapentin 300 mg capsule 600 mg PO BID quetiapine 25 mg tablet 37.5 mg PO QHS lorazepam 0.5 mg tablet 0.5 mg PO Q12H insulin glargine [Lantus Solostar U-100 Insulin] 100 unit/mL (3 mL) insulin pen 30 unit SUBCUT DAILY fenofibrate 50 mg Capsule 50 mg PO QHS Trulicity 3 mg/0.5 mL pen injector SUBCUT MO Primary Care Provider: Jarred Lopez Referrals: Jarred Lopez MD [Primary Care Provider] -
[2023-11-19] MEDS: 0.9% Normal Saline (1000mL) 1,000 ML 999 ML IV (08:51)
[2023-11-19] MEDS: Ondansetron 4 MG/2 ML Vial IV ×2 (08:52→18:20)
[2023-11-19 08:58] LABS: Lipase 39 U/L (13-75)
[2023-11-19 09:04] LABS: Anion Gap 11 (5-15); BUN 16 mg/dL (7-18); BUN/Creat Ratio 9.5 RATIO (10-20); Calcium,Total 9.6 mg/dL (8.5-10.1); Chloride 92 mmol/L (98-107); Creatinine, Serum 1.68 mg/dL (0.55-1.02); EST Glomerular Filtration Rate 33 mL/min (>60); Est Glom Filt Rate - Afr Amer 40 mL/min (>60); Estimated Creatinine Clearance 34.64 ml/min; Glucose 484 mg/dL (74-106); Potassium 3.4 mmol/L (3.5-5.1); Sodium Level 127 mmol/L (136-145)
[2023-11-19 09:11] LABS: AST(SGOT) 30 U/L (15-37); Alanine Aminotransfer ALT/SGPT 33 U/L (13-56); Albumin, Serum 3.9 g/dL (3.2-5.0); Alkaline Phosphatase 73 U/L (45-117); Bilirubin, Direct 0.16 mg/dL (0.00-0.30); Globulin 4.6 g/dL (2.2-4.2); Protein, Total 8.5 g/dL (6.4-8.2)
--- OUTSIDE RECORDS SUMMARY | 2023-11-19 10:07 | XMS RPT_ITS | CCD ---
Author Name Unknown Address [address] [place] [address] Organization [facility] Care Team Providers Care Switchbox Assembler Name Role Phone BRUCE CALIXTO Unavailable Unavailable BRUCE CALIXTO Unavailable Unavailable CEBULCARLEE Unavailable Unavailable Angelika De La Torre LPN Unavailable Unavailab le Calixto, Tj L Unavailable Unavailable Calixto, Tj L Unavailable Unavailable Calixto, Tj L Unavailable Unavailable No Family Physician given Unavailable Unavai lable Calixto, Tj L Unavailable Unavailable No Family Physician given Unavailable Unavai lable Calixto, Tj L Unavailable Unavailable No Family Physician given Unavailable Unavai lable Unavailable Primary Care Provider Unavailabl e Unavailable Primary Care Provider Unavailabl e Dwayne Lopez MD Primary Care Provider DWAYNE LOPEZ Primary Care Unavailab DWAYNE Ma Primary Care Unavailab DWAYNE Ma Primary Care Unavailab DWAYNE Ma Attending Unavailab DWAYNE Ma Attending Unavailab le Allergies Allergy Classification Reported Allergen(s) Allergy Type Date of Onset Reaction(s) Facility (19 sources) ciprofloxacin; Translations: [CIPROFLOXACIN] Drug Allergy 8 Swelling [facility] Repository (20 sources) codeine; Translations: [CODEINE] Drug Allergy 4 Hives, Itching [facility] Repository (20 sources) ibuprofen; Translations: [IBUPROFEN] Drug Allergy 7 Hives [facility] Repository (19 sources) metFORMIN; Translations: [METFORMIN] Drug Allergy 7 Intolerance [facility] Repository (19 sources) naproxen; Translations: [NAPROXEN] Drug Allergy 7 Hives [facility] Repository (19 sources) Penicillins; Translations: [PENICILLINS] Prop[facility] to adverse reactions [facility]dis[facility] (19 sources) traMADol; Translations: [TRAMADOL HCL] Drug Allergy 7 [facility] Repository (1 source) Ciprofloxacin Drug Allergy 7 [facility] Work Phone: (1 source) Ketorolac Drug Allergy itching [facility] Work Phone: (1 source) Naproxen Drug Allergy 0 [facility] Work Phone: (1 source) Penicillin V Drug Allergy hives [facility] Work Phone: (1 source) traMADol Drug Allergy face swells [facility] Work Phone: (18 sources) celecoxib; Translations: [CELECOXIB] Drug Allergy 0 Rash [facility] (18 sources) Ketorolac; Translations: [KETOROLAC] Drug Allergy 9 GI Upset [facility] Work Phone: Medications Current Medications Medication Drug Class(es) Dates Sig (Normalized) Sig (Original) clindamycin 300 mg oral capsule (1 source) Lincosamide Antibacterial Start: 04-23-2023 End: 04-30-2023 take 1 capsule by mouth three times daily clindamycin (CLEOCIN) 300 mg capsule Indications: Toothache Take 1 capsule by mouth three times daily for 7 days. 21 capsule 0 04/23/2023 04/30/2023 Active Completed/Discontinued Medications Medication Drug Class(es) Dates Sig (Normalized) Sig (Original) ALPRAZolam 0.5 mg oral tablet (2 sources) Benzodiazepine End: 08-14-2010 XANAX 0.5 MG TABS 2 tablets once daily as needed for anxiety attacks ALPRAZOLAM [id number] Beth K Angle MA aspirin 81 mg chewable tablet (19 sources) Platelet Aggregation Inhibitor, Nonsteroidal Anti-inflammatory Drug Start: 06-29-2019 aspirin 81 mg chewable tablet DAILY@0800 0 06/29/2019 Active Problems Active Problems Problem Classification Problem Date Documented Da te Episodic/Chronic Anxiety disorders (1 source) Panic attack; Translations: [Panic disorder [episodic paroxysmal anxiety]] Onset: 0 03-10-2010 Chronic Chronic kidney disease (12 sources) Chronic kidney disease stage 3A ; Translations: [Stage 3a chronic kidney disease (HCC)] Onset: 3 Chronic Diabetes mellitus with complications (20 sources) Type 1 diabetes mellitus uncontrolled; Translations: [Hyperlipidemia] Onset: 4 03-10-2010 Chronic Disorders of lipid metabolism (1 source) Hyperlipidemia, unspecified; Translations: [Hyperlipidemia associated with type 2 diabetes mellitus (HCC)] Onset: 5 Chronic Disorders of teeth and jaw (1 source) Toothache; Translations: [Other specified disorders of teeth and supporting structures] Episodic Esophageal disorders (2 sources) Gastroesophageal reflux disease; Translations: [Gastro-esophageal reflux disease without esophagitis] Onset: 3 03-10-2010 Chronic Essential hypertension (1 source) Benign essential hypertension; Translations: [Essential (primary) hypertension] Onset: 0 08-14-2010 Chronic Gastroduodenal ulcer (except hemorrhage) (17 sources) Gastric ulcer; Translations: [Gastric ulcer, unspecified as acute or chronic, without hemorrhage or perforation] Onset: 4 02-27-2016 Chronic Nutritional deficiencies (17 sources) Vitamin D deficiency; Translations: [Vitamin D deficiency, unspecified] Onset: 0 12-26-2019 Chronic Other circulatory disease (2 sources) Feeling of lump in throat; Translations: [Other specified symptoms and signs involving the circulatory and respiratory systems] Episodic Other endocrine disorders (18 sources) Hyperparathyroidism; Translations: [Hyperparathyroidism, unspecified] Onset: 8 09-15-2017 Chronic Other gastrointestinal disorders (1 source) Acute constipation; Translations: [Constipation, unspecified] Episodic Other nutritional; endocrine; and metabolic disorders (8 sources) Obesity; Translations: [Other obesity due to excess calories] Onset: 0 03-10-2010 Chronic Other nutritional; endocrine; and metabolic disorders (10 sources) Obesity caused by energy imbalance; Translations: [Other obesity due to excess calories] Onset: 9 09-04-2019 Chronic Spondylosis; intervertebral disc disorders; other back problems (17 sources) Degeneration of lumbar intervertebral disc; Translations: [Other intervertebral disc degeneration, lumbar region] Onset: 5 03-12-2015 Chronic Substance-related disorders (20 sources) Tobacco user; Translations: [Nicotine dependence, unspecified, uncomplicated] Onset: 8 07-03-2009 Chronic Thyroid disorders (20 sources) Hypothyroidism; Translations: [Non-toxic uninodular goiter] Onset: 9 08-14-2010 Chronic Unclassified (1 source) Unknown / UNK(Unknown) Onset: 8 Past or Other Problems Problem Classification Problem Date Documented Da te Episodic/Chronic Abdominal hernia (17 sources) Incisional hernia; Translations: [Incisional hernia without obstruction or gangrene] Onset: 09-04-2019 09-04-2019 Episodic Allergic reactions (17 sources) Eczema; Translations: [Dermatitis, unspecified] Onset: 12-26-2019 12-26-2019 Episodic Blindness and vision defects (2 sources) Eye / vision finding; Translations: [Unspecified visual disturbance] Onset: 04-07-2023 Episodic Calculus of urinary tract (20 sources) Kidney stone; Translations: [Calculus of kidney] Onset: 10-05-2008 03-05-2009 Episodic Chronic obstructive pulmonary disease and bronchiectasis (1 source) Bronchitis; Translations: [Bronchitis, not specified as acute or chronic] Onset: 07-28-2017 07-28-2017 Episodic Crushing injury or internal injury (17 sources) Injury of kidney; Translations: [Unspecified injury of unspecified kidney, initial encounter] Onset: 11-21-2018 11-21-2018 Episodic Fluid and electrolyte disorders (17 sources) Hyponatremia; Translations: [Hypo-osmolality and hyponatremia] Onset: 09-18-2019 09-18-2019 Episodic Genitourinary symptoms and ill-defined conditions (17 sources) Blood in urine; Translations: [Hematuria, unspecified] Onset: 01-22-2017 01-22-2017 Episodic Immunizations and screening for infectious disease (3 sources) Patient encounter status; Translations: [Encounter for immunization] Onset: 04-07-2023 Episodic Malaise and fatigue (2 sources) Asthenia; Translations: [Weakness] Onset: 04-07-2023 Episodic Mycoses (15 sources) Onychomycosis; Translations: [Tinea unguium] Onset: 04-07-2023 04-07-2023 Episodic Nonmalignant breast conditions (20 sources) Lump in left breast; Translations: [Unspecified lump in the left breast, unspecified quadrant] Onset: 12-26-2019 12-26-2019 Episodic Nonspecific chest pain (2 sources) Atypical chest pain; Translations: [Other chest pain] Onset: 03-10-2010 Resolved: 08-14-2010 08-14-2010 Episodic Other and unspecified benign neoplasm (17 sources) Benign neoplasm of colon; Translations: [Benign neoplasm of colon, unspecified] Onset: 05-15-2014 05-15-2014 Episodic Other circulatory disease (1 source) Choking; Translations: [Unspecified foreign body in larynx causing other injury] Onset: 03-10-2010 03-10-2010 Episodic Other circulatory disease (1 source) Other specified symptoms and signs involving the circulatory and respiratory systems; Translations: [Globus sensation] Onset: 04-07-2023 Episodic Other connective tissue disease (20 sources) Triggering of digit; Translations: [Trigger finger, right ring finger] Onset: 01-28-2016 01-28-2016 Episodic Other connective tissue disease (17 sources) Radial styloid tenosynovitis; Translations: [Radial styloid tenosynovitis [de Quervain]] Onset: 04-02-2016 04-02-2016 Episodic Other connective tissue disease (17 sources) Trigger thumb of right hand; Translations: [Trigger thumb, right thumb] Onset: 04-02-2016 04-02-2016 Episodic Other connective tissue disease (17 sources) Trigger finger of right hand; Translations: [Trigger finger, unspecified finger] Onset: 06-22-2017 06-22-2017 Episodic Other gastrointestinal disorders (1 source) Constipation, unspecified; Translations: [Acute constipation] Onset: 04-07-2023 Episodic Other inflammatory condition of skin (1 source) Pruritus of skin; Translations: [Pruritus, unspecified] Onset: 08-14-2010 08-14-2010 Episodic Other nutritional; endocrine; and metabolic disorders (1 source) Abnormal weight loss; Translations: [Abnormal weight loss] Onset: 03-10-2010 03-10-2010 Episodic Other screening for suspected conditions (not mental disorders or infectious disease) (1 source) Encounter for screening for malignant neoplasm of colon; Translations: [Screening for colon cancer] Onset: 04-07-2023 Episodic Other upper respiratory infections (1 source) Upper respiratory infection; Translations: [Acute upper respiratory infection, unspecified] Onset: 07-28-2017 07-28-2017 Episodic Otitis media and related conditions (1 source) Otitis media; Translations: [Otitis media, unspecified, unspecified ear] Onset: 07-28-2017 07-28-2017 Episodic Residual codes; unclassified (17 sources) Disturbance in sleep behavior; Translations: [Sleep disorder, unspecified] Onset: 12-07-2008 02-27-2016 Episodic Spondylosis; intervertebral disc disorders; other back problems (17 sources) Lumbar radiculopathy; Translations: [Radiculopathy, lumbar region] Onset: 09-18-2019 09-18-2019 Episodic Sprains and strains (1 source) Low back strain; Translations: [Strain of muscle, fascia and tendon of lower back] Onset: 01-20-2012 01-20-2012 Episodic Results Test Name Value Interpretation Reference Range Facil ity Vital Signs Date Time Vital Sign Value Performing Clinician Laure graf 04-23-2023 14:35-0400 Body temperature 100 [degF] Vernon Degroot APRN.CNP Work Phone: [facility] 04-23-2023 14:35-0400 Body weight 81.1 kg Vernon Degroot APRN.CNP Work Phone: [facility] 04-23-2023 14:35-0400 Diastolic blood pressure 82 mm[Hg] Vernon Degroot APRN.CNP Work Phone: [facility] 04-23-2023 14:35-0400 Heart rate 94 /min Vernon Degroot APRN.CNP Work Phone: [facility] 04-23-2023 14:35-0400 Respiratory rate 21 /min Vernon Degroot APRN.CNP Work Phone: [facility] 04-23-2023 14:35-0400 SaO2% (BldA) [Mass fraction] 99 % Vernon Zane PIPE LAYER HELPER.DENTURE PROCESSOR Work Phone: [facility] 04-23-2023 14:35-0400 Systolic blood pressure 130 mm[Hg] Vernon Degroot APRN.DENTURE PROCESSOR Work Phone: [facility] 04-07-2023 13:09-0400 Body height 152.4 cm Dwayne Lopez MD Work Phone: [facility] 04-07-2023 13:09-0400 Body weight 81.65 kg Dwayne Lopez MD Work Phone: [facility] 04-07-2023 13:09-0400 Diastolic blood pressure 74 mm[Hg] Dwayne Lopez MD Work Phone: [facility] 04-07-2023 13:09-0400 Heart rate 80 /min Dwayne Lopez MD Work Phone: [facility] 04-07-2023 13:09-0400 Respiratory rate 16 /min Dwayne Lopez MD Work Phone: [facility] 04-07-2023 13:09-0400 Systolic blood pressure 112 mm[Hg] Dwayne Lopez MD Work Phone: [facility] 03-24-2023 10:18-0400 Body weight 83.92 kg Dwayne Lopez MD Work Phone: [facility] 03-24-2023 10:18-0400 Diastolic blood pressure 64 mm[Hg] Dwayne Lopez MD Work Phone: [facility] 03-24-2023 10:18-0400 Heart rate 84 /min Dwayne Lopez MD Work Phone: [facility] 03-24-2023 10:18-0400 Respiratory rate 16 /min Dwayne Lopez MD Work Phone: [facility] 03-24-2023 10:18-0400 Systolic blood pressure 110 mm[Hg] Dwayne Lopez MD Work Phone: [facility] 07-28-2017 17:13-0400 BMI (Body Mass Index) 32.38 kg/m2 Angelika De La Torre LPN [facility] Work Phone: 07-28-2017 17:13-0400 Body Temperature 98.3 [degF] Angelika De La Torre LPN [facility] Work Phone: 07-28-2017 17:13-0400 BP Diastolic 76 mm[Hg] Angelika De La Torre LPN [facility] Work Phone: 07-28-2017 17:13-0400 BP Systolic 124 mm[Hg] Angelika De La Torre LPN [facility] Work Phone: 07-28-2017 17:13-0400 Height 152.4 cm Angelika De La Torre LPN [facility] Work Phone: 07-28-2017 17:13-0400 Pulse (Heart Rate) 72 /min Angelika De La Torre LPN [facility] Work Phone: 07-28-2017 17:13-0400 Respiratory Rate 15 /min Angelika De La Torre LPN [facility] Work Phone: 07-28-2017 17:13-0400 Weight 75.21 kg Angelika De La Torre LPN [facility] Work Phone: 02-04-2012 09:28-0400 BSA (Body Surface Area) 1.75 m2 Angelika De La Torre LPN [facility] Work Phone: Encounters Encounter Date Encounter Type Care Provider Facility Start: 09-20-2023 ambulatory Dwayne Lopez MD Work Phone: [facility] Procedures Date Procedure Procedure Detail Performing Clinician Start: 11-30-2017 Follow-up visit FOLLOW UP Tj Mesa Start: 06-21-2017 Adult depression scr eening assessment Shital Patel MA Start: 01-22-2017 Mammography Shital Michael MA Start: 08-14-2010 End: 08-14-2010 Mri spinal canal lumbar w/o & w/contr matrl Brenda Arthur MD Start: 03-10-2010 End: 08-11-2010 Assay of thyroid stimulating hormone tsh Brneda Arthur MD Start: 03-10-2010 End: 08-11-2010 Blood count complete automated Brenda Arthur MD Start: 03-10-2010 End: 08-11-2010 Comprehensive metabolic panel Brenda kirby MD Start: 03-10-2010 End: 03-10-2011 Gastroenterology Referral Brenda Kay Start: 03-10-2010 End: 08-11-2010 Hemoglobin glycosylated a1c Brenda Arthur MD Start: 03-10-2010 End: 08-11-2010 Lipid panel Brenda Arthur MD Start: 03-10-2010 End: 08-11-2010 Urinls dip stick/tablet reagnt non-auto micrscpy Brenda Arthur MD Plan of Treatment Date Care Activity Detail Author Start: 06-09-2031 Urine microalbumin profile [facility] Start: 04-07-2024 3 comp foot exam completed DIABETIC FOOT EXAM [facility] Start: 04-07-2024 ANNUAL PCP TEAM PRODUCTION LINE SOLDERER ASHELY DISEASE VISIT ANNUAL PCP TEAM CHRONIC DISEASE VISIT [facility] Start: 04-07-2024 COVID-19 VACCINE (4 - Booster for Pfizer series) COVID-19 VACCINE (4 - Booster for Pfizer series) [facility] Immunizations Immunization Date Immunization Notes Care Provider Fa cility 04-07-2023 pneumococcal (PCV20) vaccine, 20 valent (PREVNAR 20) Dwayne Lopez MD Work Phone: [facility] 04-07-2023 pneumococcal Conjuga te, unspecified formulation Dwayne Lopez MD Work Phone: [facility] Work Phone: 06-09-2021 tetanus toxoid, redu juan c diphtheria toxoid, and acellular pertussis vaccine, adsorbed Shital Jorge [facility] 09-18-2019 influenza, injectabl e, quadrivalent, contains preservative Shital Patel [facility] 09-18-2019 influenza virus vaccine, unspecified formulation Irena Hood [facility] 08-17-2019 influenza, injectabl e, quadrivalent, preservative free Sihtal Patel MA [facility] 07-04-2018 influenza, injectabl e, quadrivalent, preservative free Shital Patel [facility] 07-04-2018 pneumococcal polysaccharide vaccine, 23 valent Shital Patel [facility] 09-07-2013 influenza, seasonal, injectable, preservative free Shital Patel [facility] 11-23-2012 pneumococcal polysaccharide vaccine, 23 valent Shital Patel [facility] 08-14-2010 influenza, seasonal, injectable Angelika De La Torre LPN [facility] Work Phone: 03-10-2010 influenza, seasonal, injectable; Translations: [Follow Up Appt 2 weeks] Angelika De La Torre LPN [facility] Work Phone: 09-11-2009 novel [id number], preservative-free, injectable Shital Patel [facility] 10-10-2008 pneumococcal polysaccharide vaccine, 23 valent Shital Patel [facility] 08-25-2008 influenza virus vaccine, unspecified formulation Shital Patel [facility] Work Phone: 04-24-2006 tetanus and diphther ia toxoids, adsorbed, preservative free, for adult use (2 Lf of tetanus toxoid and 2 Lf of diphtheria toxoid) Shital Patel [facility] Work Phone: Payers Date Payer Category Payer Unknown ANTHEM BLUE CROS S AND BLUE SHIELD ANTHEM MEDIBLUE O [id number] 2022-[facility] [phone] [address] [place] [address] O [id number] 2022 Unknown ANTHEM BLUE CROS S AND BLUE SHIELD ANTHEM MEDIBLUE O [id number] 2022-Present [phone] [address] [place] [address] O [id number] 2022 Unknown [id number] 2014 Medicaid [id number] Unknown [id number] Unknown [id number] Unknown [id number] Unknown [id number] Unknown [id number] Social History Date Type Detail Facility Start: 10-21-2020 End: 03-24-2023 Tobacco smoking status NHIS Ex-smoker [facility] Start: 06-25-1977 End: 10-07-2020 History of tobacco use Current smoker [facility] Start: 06-25-1977 End: 10-07-2020 History of tobacco use Cigarette Smoker [facility] Start: 10-21-2020 End: 11-19-2022 Cigarettes smoked current (pack per day) - Reported 0.5 [facility] Start: 10-21-2020 End: 03-24-2023 Tobacco use and exposure Smokeless tobacco non-user [facility] Start: 10-31-2021 End: 08-10-2023 Alcohol intake Current non-drinker of alcohol (finding) [facility] Start: 05-27-2015 History SDOH Alcohol Comment Seldom- twice yearly [facility] Start: 1965 Sex Assigned At Not on file [facility] Start: 11-19-2022 End: 04-23-2023 Tobacco use panel [facility] National Score (1-10 0), lower number is lower risk 70 [facility] Medical Equipment Procedure Code Equipment Code Equipment Origin al Text Equipment Identifier Dates TEST STRIPS TEST STRIPS [id number] Start: 08-14-2010 LANCET LANCET [id number] Start: 08-14-2010 INSULIN PEN NEEDLE [id number] Start: 08-14-2010 Goals Date Patient Goal Desired Activity /State Personal health goal Clinical Notes 07-23-2015 to 11-02-2023 Ariadna Kyle - 09/20/2023 8:48 AM Sharonda Delong - 08/20/2023 4:22 PM EDTTelephone Encounter - Mary Ellen Karimi LPN - 08/18/2023 4:53 PM EDTIrena Hood PSS - 08/18/2023 7:58 AM EDT Note Date & Type Note Facility 11-02-2023 Note Patient Outreach (NE TNAV) TERRANCE BRAR ([id number]) 1965 F Date Time Provider Department 11/02/23 MARLEE CAREY NETABADV During your visit today, we recorded the following information about you: Marlee Carey MA 11/02/2023 9:16 AM Signed POPULATION HEALTH NAVIGATION OUTREACH Action/November 02, 2023 Vinh HCC Care Gaps/Scheduling needs Annual Wellness Exam Dilated Eye Exam A1c Urine Albumin Mammogram CRCS Flu shot Outcome/Action Lm on Marlee Carey MA Patient Identified by Name and : NO Outreach Outcome/Action Unable to reach patient: Left message Did you use a PCP flex slot to schedule this appointment? N/A Reason for Outreach HCC or suspected condition Payer: Payor: [employer] / Plan: SWAPNIL MEDICARE ADVANTAGE HMO / Product Type: HMO / Care Gap Reviewed:: Annual Wellness visit Breast Cancer screening Colorectal Cancer Screening Diabetic Eye Exam HBA1C Nephropathy (Albumin/Creatinine) Urine Flu Vaccine Reminder: Reminder note to check Health Maintenance for items below Health Maintenance items due: Mammogram Screening due on 01/22/2018 HbA1C due on 02/22/2020 LDL Cholesterol due on 09/18/2020 Serum Creatinine due on 10/26/2020 Colorectal Cancer Screening due on 10/27/2020 Urine Albumin:Creatinine Ratio due on 12/25/2020 Dilated Retinal Exam due on 03/25/2021 Influenza Vaccine(1) due on 06/25/2023 Covid-19 Vaccine(4 - 2022- season) due on 06/25/2023 RSV Vaccine(1 - 1-dose 60+ series) Never done Depression Assessment Never done Navigation Signature: Marlee Carey MA November 02, 2023 9:04 AM Allergies As of Date: 11/02/2023 Noted Allergy Reaction CELEBREX (CELECOXIB) 12/26/2019 2 - Rash CIPROFLOXACIN 10/05/2008 7 - Swelling CODEINE 05/17/2014 4 - Hives 9 - Itching IBUPROFEN 04/08/2007 4 - Hives METFORMIN 06/25/2017 5 - Intolerance Comments: GI UPSET NAPROXYN (NAPROXEN) 04/08/2007 4 - Hives PENICILLINS 04/08/2007 4 - Hives TORADOL (KETOROLAC) 09/28/2019 8 - GI Upset ULTRAM (TRAMADOL HCL) 04/08/2007 Comments: facial/ throat swelling Date Reviewed: 08/10/2023 Reviewed by: Edda Larios LPN - Fully Assessed Reason for Visit: Population Health Navigation Outreach [[id number]] Cmt: Vinh [facility] Prescriptions as of 11/02/2023 - dulaglutide (TRULICITY) 3 mg/0.5 mL pen injector Inject 3 mg subcutaneously one time a week. - atorvastatin (LIPITOR) 40 mg tablet Take 1 tablet by mouth once daily. - fluticasone (FLONASE) 50 mcg/actuation nasal spray Use 2 Sprays in each nostril once daily. Rinse mouth after use. - insulin lispro (HUMALOG KWIKPEN) 100 unit/mL Inject 15 Units subcutaneously three times daily before meals. - insulin glargine (LANTUS SOLOSTAR U-100 INSULIN) 100 unit/mL (3 mL) Inject 60 Units subcutaneously daily at bedtime. - Blood-Glucose Meter (FREESTYLE LITE METER) monitoring kit Free style lite Insulinx - midodrine (PROAMATINE) 10 mg tablet Take 10 mg by mouth twice daily. Take last dose no later than 6 pb or within 4 hours of sleep - pantoprazole DR (PROTONIX) 40 mg tablet Take 1 tablet by mouth twice daily. Take on empty stomach, 1/2 hr before meal. - levothyroxine (SYNTHROID) 175 mcg tablet Take 1 tablet by mouth once daily. Take on empty stomach. For Thyroid. - rizatriptan (MAXALT) 10 mg tablet TAKE 1 TABLET BY MOUTH needed for FOR MIGRAINE headache. May repeat every 2 (TWO) hours as needed for migraine.Max of 3 (THREE) tablets per - insulin lispro (HUMALOG KWIKPEN INSULIN) 100 unit/mL Inject 14 Units subcutaneously w MEALS. - blood sugar diagnostic (BLOOD GLUCOSE TEST) test strip Test blood sugar(s) 3 times daily. Dx: Other DM Code E11.49 Insulin: Yes. Pt uses Freestyle Lite Insulinx Meter - blood sugar diagnostic (FREESTYLE INSULINX TEST STRIPS) test strip use to test blood sugar THREE TIMES DAILY - Insulin Niles, Disposable, (BD ULTRA-FINE BEN PEN NEEDLE) 32 gauge x 5/32 ndle Use one needle for each dose. four/day. - aspirin 81 mg chewable tablet DAILY@0800 - Lancets lancets Test blood sugar(s) 3 times daily. Dx: Type 2 DM - Uncontrolled E11.65 Insulin: Yes Problem List As Of Date 11/02/2023 Noted Resolved Depressive disorder, not elsewhere classified [*10/05/2008 02/27/2016 Diabetes mellitus type 2, uncontrolled, without*10/05/2008 02/27/2016 CALCULUS OF KIDNEY [N20.0] 10/05/2008 Tobacco Use Disorder [F17.200] 10/10/2008 Hyperparathyroidism (HCC) [E21.3] 10/24/2008 Disturbance in sleep behavior [G47.9] 12/07/2008 NONTOX UNINODULAR GOITER [E04.1] 12/07/2008 Routine General Medical Examination at [facility]*12/10/2008 06/03/2015 Benign neoplasm of colon [D12.6] 05/15/2014 Abdominal pain, epigastric [R10.13] 05/15/2014 06/03/2015 Gastric ulcer [K25.9] 05/15/2014 Abdominal pain, right upper quadrant [R10.11] 06/05/2014 06/03/2015 Lumbar degen (more content not included)... [facility] 11-02-2023 Note HNO ID: [id number] Author: MARLEE CAREY MA Service: ? Author Type: Automotive Specialty Technician Type: Progress Notes Filed: 11/02/2023 09:16 Note Text: POPULATION HEALTH NAVIGATION OUTREACH Action/I November 02, 2023 [place] [facility] Care Gaps/Scheduling needs Annual Wellness Exam Dilated Eye Exam A1c Urine Albumin Mammogram CRCS Flu shot Outcome/Action Lm on Vm Marlee Carey MA Patient Identified by Name and : NO Outreach Outcome/Action Unable to reach patient: Left message Did you use a PCP flex slot to schedule this appointment? N/A Reason for Outreach HCC or suspected condition Payer: Payor: [employer] / Plan: AN[employer]M MEDICARE ADVANTAGE HMO / Product Type: HMO / Care Gap Reviewed:: Annual Wellness visit Breast Cancer screening Colorectal Cancer Screening Diabetic Eye Exam HBA1C Nephropathy (Albumin/Creatinine) Urine Flu Vaccine Reminder: Reminder note to check Health Maintenance for items below Health Maintenance items due: Mammogram Screening due on 01/22/2018 HbA1C due on 02/22/2020 LDL Cholesterol due on 09/18/2020 Serum Creatinine due on 10/26/2020 Colorectal Cancer Screening due on 10/27/2020 Urine Albumin:Creatinine Ratio due on 12/25/2020 Dilated Retinal Exam due on 03/25/2021 Influenza Vaccine(1) due on 06/25/2023 Covid-19 Vaccine(2022- season) due on 06/25/2023 RSV Vaccine(1 - 1-dose 60+ series) Never done Depression Assessment Never done Navigation Signature: Marlee Carey MA November 02, 2023 9:04 AM [facility] 10-13-2023 Note Patient Outreach (PH MEWO) TERRANCE BRAR ([id number]) 1965 F Date Time Provider Department 10/13/23 ELIZABETH JENNINGS PHMEWSenia During your visit today, we recorded the following information about you: Elizabeth Jennings RPh 10/13/2023 9:51 AM Signed Primary Care Pharmacy Panel Management This patient has been identified through panel management efforts by the primary care pharmacy team. Please contact patient and schedule a pharmacy phone or virtual visit for diabetes management. Please use New Pharmacy, New Pharmacy Phone call, or Video Primary New visit types. Elizabeth Seniorvirgil [facility] Allergies As of Date: 10/13/2023 Noted Allergy Reaction CELEBREX (CELECOXIB) 12/26/2019 2 - Rash CIPROFLOXACIN 10/05/2008 7 - Swelling CODEINE 05/17/2014 4 - Hives 9 - Itching IBUPROFEN 04/08/2007 4 - Hives METFORMIN 06/25/2017 5 - Intolerance Comments: GI UPSET NAPROXYN (NAPROXEN) 04/08/2007 4 - Hives PENICILLINS 04/08/2007 4 - Hives TORADOL (KETOROLAC) 09/28/2019 8 - GI Upset ULTRAM (TRAMADOL HCL) 04/08/2007 Comments: facial/ throat swelling Date Reviewed: 08/10/2023 Reviewed by: Edda Larios LPN - Fully Assessed Primary Visit Diagnosis:Type 2 diabetes (HCC) [E11.9] Order(s):CONSULT TO PHARMACY [231388] Order #: [id number]: 1 Prescriptions as of 10/13/2023 - dulaglutide (TRULICITY) 3 mg/0.5 mL pen injector Inject 3 mg subcutaneously one time a week. - atorvastatin (LIPITOR) 40 mg tablet Take 1 tablet by mouth once daily. - fluticasone (FLONASE) 50 mcg/actuation nasal spray Use 2 Sprays in each nostril once daily. Rinse mouth after use. - insulin lispro (HUMALOG KWIKPEN) 100 unit/mL Inject 15 Units subcutaneously three times daily before meals. - insulin glargine (LANTUS SOLOSTAR U-100 INSULIN) 100 unit/mL (3 mL) Inject 60 Units subcutaneously daily at bedtime. - Blood-Glucose Meter (FREESTYLE LITE METER) monitoring kit Free style lite Insulinx - midodrine (PROAMATINE) 10 mg tablet Take 10 mg by mouth twice daily. Take last dose no later than 6 pb or within 4 hours of sleep - pantoprazole DR (PROTONIX) 40 mg tablet Take 1 tablet by mouth twice daily. Take on empty stomach, 1/2 hr before meal. - levothyroxine (SYNTHROID) 175 mcg tablet Take 1 tablet by mouth once daily. Take on empty stomach. For Thyroid. - rizatriptan (MAXALT) 10 mg tablet TAKE 1 TABLET BY MOUTH needed for FOR MIGRAINE headache. May repeat every 2 (TWO) hours as needed for migraine.Max of 3 (THREE) tablets per - insulin lispro (HUMALOG KWIKPEN INSULIN) 100 unit/mL Inject 14 Units subcutaneously w MEALS. - blood sugar diagnostic (BLOOD GLUCOSE TEST) test strip Test blood sugar(s) 3 times daily. Dx: Other DM Code E11.49 Insulin: Yes. Pt uses Freestyle Lite Insulinx Meter - blood sugar diagnostic (FREESTYLE INSULINX TEST STRIPS) test strip use to test blood sugar THREE TIMES DAILY - Insulin Niles, Disposable, (BD ULTRA-FINE BEN PEN NEEDLE) 32 gauge x 5/32 ndle Use one needle for each dose. four/day. - aspirin 81 mg chewable tablet DAILY@0800 - Lancets lancets Test blood sugar(s) 3 times daily. Dx: Type 2 DM - Uncontrolled E11.65 Insulin: Yes Problem List As Of Date 10/13/2023 Noted Resolved Depressive disorder, not elsewhere classified [*10/05/2008 02/27/2016 Diabetes mellitus type 2, uncontrolled, without*10/05/2008 02/27/2016 CALCULUS OF KIDNEY [N20.0] 10/05/2008 Tobacco Use Disorder [F17.200] 10/10/2008 Hyperparathyroidism (HCC) [E21.3] 10/24/2008 Disturbance in sleep behavior [G47.9] 12/07/2008 NONTOX UNINODULAR GOITER [E04.1] 12/07/2008 Routine General Medical Examination at [facility]*12/10/2008 06/03/2015 Benign neoplasm of colon [D12.6] 05/15/2014 Abdominal pain, epigastric [R10.13] 05/15/2014 06/03/2015 Gastric ulcer [K25.9] 05/15/2014 Abdominal pain, right upper quadrant [R10.11] 06/05/2014 06/03/2015 Lumbar degenerative disc disease [M51.36] 03/12/2015 Constipation [K59.00] 03/12/2015 06/03/2015 Anemia [D64.9] 03/12/2015 02/27/2016 Hypothyroidism [E03.9] 03/12/2015 Hyperlipidemia associated with type 2 diabetes *03/12/2015 Carpal tunnel syndrome, left [G56.02] 05/27/2015 01/27/2017 Carpal tunnel syndrome, right [G56.01] 05/27/2015 01/27/2017 Trigger thumb of left hand [M65.312] 07/23/2015 01/27/2017 Trigger ring finger of right hand [M65.341] 01/28/2016 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 [facility] 10-13-2023 Note HNO ID: [id number] Author: Elizabeth Jennings RPh Service: ? Author Type: Pharmacist Type: Progress Notes Filed: 10/13/2023 9:51 AM Note Text: Primary Care Pharmacy Panel Management This patient has been identified through panel management efforts by the primary care pharmacy team. Please contact patient and schedule a pharmacy phone or virtual visit for diabetes management. Please use New Pharmacy, New Pharmacy Phone call, or Video Primary New visit types. Elizabeth Jennings RPh [facility] 09-20-2023 Note Patient Outreach ( PO) TERRANCE BRAR ([id number]) 1965 F Date Time Provider Department 09/20/23 DWAYNE LOPEZ During your visit today, we recorded the following information about you: Ariadna Kyle 09/20/2023 8:52 AM Signed Terrance Brar is identified through a medication adherence outreach initiative based on pharmacy claims data from [employer] (insurer) for Statin medication(s). Patient is reviewed 09/20/23 due to medication adherence concerns with the following medications (name, strength, sig): atorvastatin 40mg, take 1 tablet daily. Per data/report, last fill date and days supply: due 09/20/23 Per reconcile dispense, last fill date and days supply: filled 08/19/23 (reversed) Outcome of review/outreach: (choose outcome source and status) -2nd attempt Left message Ariadna Kyle Allergies As of Date: 09/20/2023 Noted Allergy Reaction CELEBREX (CELECOXIB) 12/26/2019 2 - Rash CIPROFLOXACIN 10/05/2008 7 - Swelling CODEINE 05/17/2014 4 - Hives 9 - Itching IBUPROFEN 04/08/2007 4 - Hives METFORMIN 06/25/2017 5 - Intolerance Comments: GI UPSET NAPROXYN (NAPROXEN) 04/08/2007 4 - Hives PENICILLINS 04/08/2007 4 - Hives TORADOL (KETOROLAC) 09/28/2019 8 - GI Upset ULTRAM (TRAMADOL HCL) 04/08/2007 Comments: facial/ throat swelling Date Reviewed: 08/10/2023 Reviewed by: Edda Larios LPN - Fully Assessed Reason for Visit: Allied Health Visit [5] Cmt: Medication Adherence Outreach Prescriptions as of 09/20/2023 - dulaglutide (TRULICITY) 3 mg/0.5 mL pen injector Inject 3 mg subcutaneously one time a week. - atorvastatin (LIPITOR) 40 mg tablet Take 1 tablet by mouth once daily. - fluticasone (FLONASE) 50 mcg/actuation nasal spray Use 2 Sprays in each nostril once daily. Rinse mouth after use. - insulin lispro (HUMALOG KWIKPEN) 100 unit/mL Inject 15 Units subcutaneously three times daily before meals. - insulin glargine (LANTUS SOLOSTAR U-100 INSULIN) 100 unit/mL (3 mL) Inject 60 Units subcutaneously daily at bedtime. - Blood-Glucose Meter (FREESTYLE LITE METER) monitoring kit Free style lite Insulinx - midodrine (PROAMATINE) 10 mg tablet Take 10 mg by mouth twice daily. Take last dose no later than 6 pb or within 4 hours of sleep - pantoprazole DR (PROTONIX) 40 mg tablet Take 1 tablet by mouth twice daily. Take on empty stomach, 1/2 hr before meal. - levothyroxine (SYNTHROID) 175 mcg tablet Take 1 tablet by mouth once daily. Take on empty stomach. For Thyroid. - rizatriptan (MAXALT) 10 mg tablet TAKE 1 TABLET BY MOUTH needed for FOR MIGRAINE headache. May repeat every 2 (TWO) hours as needed for migraine.Max of 3 (THREE) tablets per - insulin lispro (HUMALOG KWIKPEN INSULIN) 100 unit/mL Inject 14 Units subcutaneously w MEALS. - blood sugar diagnostic (BLOOD GLUCOSE TEST) test strip Test blood sugar(s) 3 times daily. Dx: Other DM Code E11.49 Insulin: Yes. Pt uses Freestyle Lite Insulinx Meter - blood sugar diagnostic (FREESTYLE INSULINX TEST STRIPS) test strip use to test blood sugar THREE TIMES DAILY - Insulin Niles, Disposable, (BD ULTRA-FINE BEN PEN NEEDLE) 32 gauge x 5/32 ndle Use one needle for each dose. four/day. - aspirin 81 mg chewable tablet DAILY@0800 - Lancets lancets Test blood sugar(s) 3 times daily. Dx: Type 2 DM - Uncontrolled E11.65 Insulin: Yes Problem List As Of Date 09/20/2023 Noted Resolved Depressive disorder, not elsewhere classified [*10/05/2008 02/27/2016 Diabetes mellitus type 2, uncontrolled, without*10/05/2008 02/27/2016 CALCULUS OF KIDNEY [N20.0] 10/05/2008 Tobacco Use Disorder [F17.200] 10/10/2008 Hyperparathyroidism (HCC) [E21.3] 10/24/2008 Disturbance in sleep behavior [G47.9] 12/07/2008 NONTOX UNINODULAR GOITER [E04.1] 12/07/2008 Routine General Medical Examination at [facility]*12/10/2008 06/03/2015 Benign neoplasm of colon [D12.6] 05/15/2014 Abdominal pain, epigastric [R10.13] 05/15/2014 06/03/2015 Gastric ulcer [K25.9] 05/15/2014 Abdominal pain, right upper quadrant [R10.11] 06/05/2014 06/03/2015 Lumbar degenerative disc disease [M51.36] 03/12/2015 Constipation [K59.00] 03/12/2015 06/03/2015 Anemia [D64.9] 03/12/2015 02/27/2016 Hypothyroidism [E03.9] 03/12/2015 Hyperlipidemia associated with type 2 diabetes *03/12/2015 Carpal tunnel syndrome, left [G56.02] 05/27/2015 01/27/2017 Carpal tunnel syndrome, right [G56.01] 05/27/2015 01/27/2017 Trigger thumb of left hand [M65.312] 07/23/2015 01/27/2017 Trigger ring finger of right hand [M65.341] 01/28/2016 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 [facility] 09-20-2023 Note HNO ID: [id number] Author: Ariadna Kyle Service: ? Author Type: ? Type: Progress Notes Filed: 09/20/2023 8:52 AM Note Text: Terrance Brar is identified through a medication adherence outreach initiative based on pharmacy claims data from [employer] (insurer) for Statin medication(s). Patient is reviewed 09/20/23 due to medication adherence concerns with the following medications (name, strength, sig): atorvastatin 40mg, take 1 tablet daily. Per data/report, last fill date and days supply: due 09/20/23 Per reconcile dispense, last fill date and days supply: filled 08/19/23 (reversed) Outcome of review/outreach: (choose outcome source and status) -2nd attempt Left message Ariadna Kyle [facility] 09-20-2023 History of Present illness Narrative Terrance Brar is identified through a medication adherence outreach initiative based on pharmacy claims data from [employer] (insurer) for Statin medication(s). Patient is reviewed 09/20/23 due to medication adherence concerns with the following medications (name, strength, sig): atorvastatin 40mg, take 1 tablet daily. Per data/report, last fill date and days supply: due 09/20/23 Per reconcile dispense, last fill date and days supply: filled 08/19/23 (reversed) Outcome of review/outreach: (choose outcome source and status) -2nd attempt Left message Ariadna Kyle documented in this encounter [facility] 08-20-2023 Note HNO ID: [id number] Author: Sharonda Sanchez Service: ? Author Type: ? Type: Progress Notes Filed: 08/20/2023 4:30 PM Note Text: Terrance Brar is identified through a medication adherence outreach initiative based on pharmacy claims data from [employer] (insurer) for Non-insulin DM medication(s) and Statin medication(s). Patient is reviewed 08/20/23 due to medication adherence concerns with the following medications (name, strength, sig): Trulicity 3mg once weekly, Atorvastatin 40mg 1 tab daily. Per data/report, last fill date and days supply: Trulicity due 06/28 , Atorvastatin due 06/30 Per reconcile dispense, last fill date and days supply: Trulicity 28 ds, Atorvastatin 30 ds both filled 08/19 Per call to pharmacy, last picked up date and days supply: not picked up Contacted patient: No answer; left generic VM Outcome of review/outreach: (choose outcome source and status) - Filled later than 7 days after Next fill date per reconcile dispense Both were out of refill Sharonda Sanchez [facility] History of Present illness Narrative Terrance Brar is identified through a medication adherence outreach initiative based on pharmacy claims data from [employer] (insurer) for Non-insulin DM medication(s) and Statin medication(s). Patient is reviewed 08/20/23 due to medication adherence concerns with the following medications (name, strength, sig): Trulicity 3mg once weekly, Atorvastatin 40mg 1 tab daily. Per data/report, last fill date and days supply: Trulicity due 06/28 , Atorvastatin due 06/30 Per reconcile dispense, last fill date and days supply: Trulicity 28 ds, Atorvastatin 30 ds both filled 08/19 Per call to pharmacy, last picked up date and days supply: not picked up Contacted patient: No answer; left generic VM Outcome of review/outreach: (choose outcome source and status) - Filled later than 7 days after Next fill date per reconcile dispense Both were out of refill Sharonda Sanchez English Language Learner Teacher documented in this encounter [facility] 08-20-2023 Note Patient Outreach ([facility]) TERRANCE BRAR ([id number]) 1965 F Date Time Provider Department 08/20/23 [facility] During your visit today, we recorded the following information about you: Sharonda Sanchez 08/20/2023 4:30 PM Signed Terrance Brar is identified through a medication adherence outreach initiative based on pharmacy claims data from [employer] (insurer) for Non-insulin DM medication(s) and Statin medication(s). Patient is reviewed 08/20/23 due to medication adherence concerns with the following medications (name, strength, sig): Trulicity 3mg once weekly, Atorvastatin 40mg 1 tab daily. Per data/report, last fill date and days supply: Trulicity due 06/28 , Atorvastatin due 06/30 Per reconcile dispense, last fill date and days supply: Trulicity 28 ds, Atorvastatin 30 ds both filled 08/19 Per call to pharmacy, last picked up date and days supply: not picked up Contacted patient: No answer; left generic VM Outcome of review/outreach: (choose outcome source and status) - Filled later than 7 days after Next fill date per reconcile dispense Both were out of refill [facility] English Language Learner Teacher Allergies As of Date: 08/20/2023 Noted Allergy Reaction CELEBREX (CELECOXIB) 12/26/2019 2 - Rash CIPROFLOXACIN 10/05/2008 7 - Swelling CODEINE 05/17/2014 4 - Hives 9 - Itching IBUPROFEN 04/08/2007 4 - Hives METFORMIN 06/25/2017 5 - Intolerance Comments: GI UPSET NAPROXYN (NAPROXEN) 04/08/2007 4 - Hives PENICILLINS 04/08/2007 4 - Hives TORADOL (KETOROLAC) 09/28/2019 8 - GI Upset ULTRAM (TRAMADOL HCL) 04/08/2007 Comments: facial/ throat swelling Date Reviewed: 08/10/2023 Reviewed by: Edda Larios LPN - Fully Assessed Reason for Visit: Allied Health Visit [5] Cmt: Medication Adherence Outreach Prescriptions as of 08/20/2023 - dulaglutide (TRULICITY) 3 mg/0.5 mL pen injector Inject 3 mg subcutaneously one time a week. - atorvastatin (LIPITOR) 40 mg tablet Take 1 tablet by mouth once daily. - fluticasone (FLONASE) 50 mcg/actuation nasal spray Use 2 Sprays in each nostril once daily. Rinse mouth after use. - insulin lispro (HUMALOG KWIKPEN) 100 unit/mL Inject 15 Units subcutaneously three times daily before meals. - insulin glargine (LANTUS SOLOSTAR U-100 INSULIN) 100 unit/mL (3 mL) Inject 60 Units subcutaneously daily at bedtime. - Blood-Glucose Meter (FREESTYLE LITE METER) monitoring kit Free style lite Insulinx - midodrine (PROAMATINE) 10 mg tablet Take 10 mg by mouth twice daily. Take last dose no later than 6 pb or within 4 hours of sleep - pantoprazole DR (PROTONIX) 40 mg tablet Take 1 tablet by mouth twice daily. Take on empty stomach, 1/2 hr before meal. - levothyroxine (SYNTHROID) 175 mcg tablet Take 1 tablet by mouth once daily. Take on empty stomach. For Thyroid. - rizatriptan (MAXALT) 10 mg tablet TAKE 1 TABLET BY MOUTH needed for FOR MIGRAINE headache. May repeat every 2 (TWO) hours as needed for migraine.Max of 3 (THREE) tablets per - insulin lispro (HUMALOG KWIKPEN INSULIN) 100 unit/mL Inject 14 Units subcutaneously w MEALS. - blood sugar diagnostic (BLOOD GLUCOSE TEST) test strip Test blood sugar(s) 3 times daily. Dx: Other DM Code E11.49 Insulin: Yes. Pt uses Freestyle Lite Insulinx Meter - blood sugar diagnostic (FREESTYLE INSULINX TEST STRIPS) test strip use to test blood sugar THREE TIMES DAILY - Insulin Niles, Disposable, (BD ULTRA-FINE BEN PEN NEEDLE) 32 gauge x 5/32 ndle Use one needle for each dose. four/day. - aspirin 81 mg chewable tablet DAILY@0800 - Lancets lancets Test blood sugar(s) 3 times daily. Dx: Type 2 DM - Uncontrolled E11.65 Insulin: Yes Problem List As Of Date 08/20/2023 Noted Resolved Depressive disorder, not elsewhere classified [*10/05/2008 02/27/2016 Diabetes mellitus type 2, uncontrolled, without*10/05/2008 02/27/2016 CALCULUS OF KIDNEY [N20.0] 10/05/2008 Tobacco Use Disorder [F17.200] 10/10/2008 Hyperparathyroidism (HCC) [E21.3] 10/24/2008 Disturbance in sleep behavior [G47.9] 12/07/2008 NONTOX UNINODULAR GOITER [E04.1] 12/07/2008 Routine General Medical Examination at [facility]*12/10/2008 06/03/2015 Benign neoplasm of colon [D12.6] 05/15/2014 Abdominal pain, epigastric [R10.13] 05/15/2014 06/03/2015 Gastric ulcer [K25.9] 05/15/2014 Abdominal pain, right upper quadrant [R10.11] 06/05/2014 06/03/2015 Lumbar degenerative disc disease [M51.36] 03/12/2015 Constipation [K59.00] 03/12/2015 06/03/2015 Anemia [D64.9] 03/12/2015 02/27/2016 Hypothyroidism [E03.9] 03/12/2015 Hyperlipidemia associated with type 2 diabetes *03/12/2015 Carpal tunnel syndrome, left [G56.02] 05/27/2015 01/27/2017 Carpal tunnel syndrome, right [G56.01] 05/27/2015 01/27/2017 Trigger thumb of left hand [M65.312] 07/23/2015 01/27/2017 Trigger ring finger of right hand [M65.341] 01/28/2016 Diabetes mellitus type 2 with neuro (more content not included)... [facility] 08-18-2023 Miscellaneous Notes Spoke with pt and information listed below given. Pt verbalizes understanding. Mary Ellen Karimi LPN Patient reviewed for Population Health Medication Adherence Pended the following prescription(s) for review. Requested Prescriptions Pending Prescriptions Disp Refills dulaglutide (TRULICITY) 3 mg/0.5 mL pen injector 6 mL 3 Sig: Inject 3 mg subcutaneously one time a week. atorvastatin (LIPITOR) 40 mg tablet 90 tablet 3 Sig: Take 1 tablet by mouth once daily. Future Appointments Date Time Provider Department Center 08/26/2023 1:40 PM 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 APRN.[facility] Please review and refill if appropriate. Thank you. Sharonda Sanchez August 18, 2023 4:11 PM documented in this encounter [facility] 08-18-2023 Note Patient Outreach (NE TNAV) TERRANCE BRAR ([id number]) 1965 F Date Time Provider Department 08/18/23 IRENA HOOD During your visit today, we recorded the following information about you: Irena Hood PSS 08/18/2023 1:52 PM Signed POPULATION HEALTH NAVIGATION OUTREACH Action/FYI Pt due for: Return in about 3 months (around 07/08/2023) for Follow up with Jesica for routine. A1c CRCS Dilated retinal exam Mammogram Flu shot Pharm med Spoke to pt, rescheduled follow up. Will address open care gaps at this visit. Patient Identified by Name and : YES, via phone Outreach Outcome/Action Spoke to patient / parent / legal guardian: Patient scheduled Did you use a PCP flex slot to schedule this appointment? No Reason for Outreach Care Gap or Scheduling/Wellness visits Payer: Payor: [employer] / Plan: [employer] HMO / Product Type: HMO / Care Gap Reviewed:: Breast Cancer screening Colorectal Cancer Screening Diabetic Eye Exam HBA1C Flu Vaccine Reminder: Reminder note to check Health Maintenance for items below Health Maintenance items due: Mammogram Screening due on 01/22/2018 HbA1C due on 02/22/2020 LDL Cholesterol due on 09/18/2020 Serum Creatinine due on 10/26/2020 Colorectal Cancer Screening due on 10/27/2020 Urine Albumin:Creatinine Ratio due on 12/25/2020 Dilated Retinal Exam due on 03/25/2021 Depression Assessment Never done Influenza Vaccine(1) due on 06/25/2023 Covid-19 Vaccine(4 - season) due on 06/25/2023 Hepatitis B Vaccine(1 of 3 - Risk 3-dose series) Never done RSV Vaccine(1 - 1-dose 60+ series) due on 2023 Navigation Signature: AMY Jeff August 18, 2023 7:58 AM Allergies As of Date: 08/18/2023 Noted Allergy Reaction CELEBREX (CELECOXIB) 12/26/2019 2 - Rash CIPROFLOXACIN 10/05/2008 7 - Swelling CODEINE 05/17/2014 4 - Hives 9 - Itching IBUPROFEN 04/08/2007 4 - Hives METFORMIN 06/25/2017 5 - Intolerance Comments: GI UPSET NAPROXYN (NAPROXEN) 04/08/2007 4 - Hives PENICILLINS 04/08/2007 4 - Hives TORADOL (KETOROLAC) 09/28/2019 8 - GI Upset ULTRAM (TRAMADOL HCL) 04/08/2007 Comments: facial/ throat swelling Date Reviewed: 08/10/2023 Reviewed by: Edda Larios LPN - Fully Assessed Reason for Visit: Population Health Navigation Outreach [3910] Cmt: Vinh langford Prescriptions as of 08/18/2023 - fluticasone (FLONASE) 50 mcg/actuation nasal spray Use 2 Sprays in each nostril once daily. Rinse mouth after use. - atorvastatin (LIPITOR) 40 mg tablet Take 1 tablet by mouth once daily. - dulaglutide (TRULICITY) 3 mg/0.5 mL pen injector Inject 3 mg subcutaneously one time a week. - insulin lispro (HUMALOG KWIKPEN) 100 unit/mL Inject 15 Units subcutaneously three times daily before meals. - insulin glargine (LANTUS SOLOSTAR U-100 INSULIN) 100 unit/mL (3 mL) Inject 60 Units subcutaneously daily at bedtime. - Blood-Glucose Meter (FREESTYLE LITE METER) monitoring kit Free style lite Insulinx - midodrine (PROAMATINE) 10 mg tablet Take 10 mg by mouth twice daily. Take last dose no later than 6 pb or within 4 hours of sleep - pantoprazole DR (PROTONIX) 40 mg tablet Take 1 tablet by mouth twice daily. Take on empty stomach, 1/2 hr before meal. - levothyroxine (SYNTHROID) 175 mcg tablet Take 1 tablet by mouth once daily. Take on empty stomach. For Thyroid. - rizatriptan (MAXALT) 10 mg tablet TAKE 1 TABLET BY MOUTH needed for FOR MIGRAINE headache. May repeat every 2 (TWO) hours as needed for migraine.Max of 3 (THREE) tablets per - insulin lispro (HUMALOG KWIKPEN INSULIN) 100 unit/mL Inject 14 Units subcutaneously w MEALS. - blood sugar diagnostic (BLOOD GLUCOSE TEST) test strip Test blood sugar(s) 3 times daily. Dx: Other DM Code E11.49 Insulin: Yes. Pt uses Freestyle Lite Insulinx Meter - blood sugar diagnostic (FREESTYLE INSULINX TEST STRIPS) test strip use to test blood sugar THREE TIMES DAILY - Insulin Niles, Disposable, (BD ULTRA-FINE BEN PEN NEEDLE) 32 gauge x 5/32 ndle Use one needle for each dose. four/day. - aspirin 81 mg chewable tablet DAILY@0800 - Lancets lancets Test blood sugar(s) 3 times daily. Dx: Type 2 DM - Uncontrolled E11.65 Insulin: Yes Problem List As Of Date 08/18/2023 Noted Resolved Depressive disorder, not elsewhere classified [*10/05/2008 02/27/2016 Diabetes mellitus type 2, uncontrolled, without*10/05/2008 02/27/2016 CALCULUS OF KIDNEY [N20.0] 10/05/2008 Tobacco Use Disorder [F17.200] 10/10/2008 Hyperparathyroidism (HCC) [E21.3] 10/24/2008 Disturbance in sleep behavior [G47.9] 12/07/2008 NONTOX UNINODULAR GOITER [E04.1] 12/07/2008 Routine General Medical Examination at [facility]12/10/2008 06/03/2015 Benign neoplasm of colon [D12.6] 05/15/2014 Abdominal pain, epigastric [R10.13] 05/15/2014 06/03/2015 Gastric (more content not included)... [facility] 08-18-2023 Note HNO ID: [id number] Author: Irena Hood PSS Service: ? Author Type: ? Type: Progress Notes Filed: 08/18/2023 1:52 PM Note Text: POPULATION HEALTH NAVIGATION OUTREACH Action/FYI Pt due for: Return in about 3 months (around 07/08/2023) for Follow up with Jesica for routine. A1c CRCS Dilated retinal exam Mammogram Flu shot Pharm med Spoke to pt, rescheduled follow up. Will address open care gaps at this visit. Patient Identified by Name and : YES, via phone Outreach Outcome/Action Spoke to patient / parent / legal guardian: Patient scheduled Did you use a PCP flex slot to schedule this appointment? No Reason for Outreach Care Gap or Scheduling/Wellness visits Payer: Payor: [employer] AND [employer] / Plan: [employer] HMO / Product Type: HMO / Care Gap Reviewed:: Breast Cancer screening Colorectal Cancer Screening Diabetic Eye Exam HBA1C Flu Vaccine Reminder: Reminder note to check Health Maintenance for items below Health Maintenance items due: Mammogram Screening due on 01/22/2018 HbA1C due on 02/22/2020 LDL Cholesterol due on 09/18/2020 Serum Creatinine due on 10/26/2020 Colorectal Cancer Screening due on 10/27/2020 Urine Albumin:Creatinine Ratio due on 12/25/2020 Dilated Retinal Exam due on 03/25/2021 Depression Assessment Never done Influenza Vaccine(1) due on 06/25/2023 Covid-19 Vaccine( season) due on 06/25/2023 Hepatitis B Vaccine(1 of 3 - Risk 3-dose series) Never done RSV Vaccine(1 - 1-dose 60+ series) due on 2023 Navigation Signature: AMY Jeff August 18, 2023 7:58 AM [facility] 08-18-2023 History of Present illness Narrative POPULATION HEALTH NAVIGATION OUTREACH Action/FYI Pt due for: Return in about 3 months (around 07/08/2023) for Follow up with Jesica horner routine. A1c CRCS Dilated retinal exam Mammogram Flu shot Pharm med Spoke to pt, rescheduled follow up. Will address open care gaps at this visit. Patient Identified by Name and : YES, via phone Outreach Outcome/Action Spoke to patient / parent / legal guardian: Patient scheduled Did you use a PCP flex slot to schedule this appointment? No Reason for Outreach Care Gap or Scheduling/Wellness visits Payer: Payor: [employer] / Plan: [employer] HMO / Product Type: HMO / Care Gap Reviewed:: Breast Cancer screening Colorectal Cancer Screening Diabetic Eye Exam HBA1C Flu Vaccine Reminder: Reminder note to check Health Maintenance for items below Health Maintenance items due: Mammogram Screening due on 01/22/2018 HbA1C due on 02/22/2020 LDL Cholesterol due on 09/18/2020 Serum Creatinine due on 10/26/2020 Colorectal Cancer Screening due on 10/27/2020 Urine Albumin:Creatinine Ratio due on 12/25/2020 Dilated Retinal Exam due on 03/25/2021 Depression Assessment Never done Influenza Vaccine(1) due on 06/25/2023 Covid-19 Vaccine( season) due on 06/25/2023 Hepatitis B Vaccine(1 of 3 - Risk 3-dose series) Never done RSV Vaccine(1 - 1-dose 60+ series) due on 2023 Navigation Signature: AMY Jeff August 18, 2023 7:58 AM documented in this encounter [facility] 08-10-2023 Note HNO ID: [id number] Author: Graciela Amaral PA-C Service: ? Author Type: Physician Production Worker Type: Progress Notes Filed: 08/10/2023 6:06 PM Note Text: This note was created using Miso. Subjective Terrance rBar is a 58 year old female. HPI Patient presents with full complaints. She states she has had eye drainage and discharge in both eyes over the past week. She has had watering of her eyes. She states they feel irritated. She denies any runny nose or cough. No congestion or sore throat. No fever. No one around her has pinkeye. She also has had right lower dental pain for a week and is concerned for infection. She denies fever. She has had some swelling on her gumline. She thinks she does have a broken tooth there. Patient also complaining of her left ear feeling clogged. She has had some decreased hearing in it. Denies drainage from the ear. Review of Systems Constitutional: Negative. HENT: Positive for dental problem, ear pain and hearing loss. Negative for congestion, ear discharge, rhinorrhea, sore throat and trouble swallowing. Eyes: Positive for discharge, redness and itching. Negative for photophobia, pain and visual disturbance. Respiratory: Negative for cough. Gastrointestinal: Negative. Genitourinary: Negative. Musculoskeletal: Negative. All other systems reviewed and are negative. PAST MEDICAL HISTORY Diagnosis Date Anemia 03/12/2015 Bipolar 2 disorder (HCC) 05/26/2018 Chronic lower back pain Dr. Renteria Constipation 03/12/2015 Diabetes mellitus Excessive or frequent menstruation Hyperlipidemia associated with type 2 diabetes mellitus (HCC) 03/12/2015 Hyperparathyroidism, unspecified (HCC) 10/24/2008 Hypothyroidism 03/12/2015 Lumbar degenerative disc disease 03/12/2015 Stopped pain management 6-15 Onychomycosis PTSD (post-traumatic stress disorder) 05/26/2018 PUD (peptic ulcer disease) 03/12/2015 Status post cystoscopy, left uretroscopy, laser lithotripsy of stones, w/stent 03/18/2017 Tobacco use disorder 10/10/2008 Has tried to quit in past, some success. Tubular adenoma of colon 04/2014 repeat colonoscopy in 3 years Well controlled type 2 diabetes mellitus with neurological manifestations (HCC) 02/27/2016 Current Outpatient Medications Medication Sig Dispense Refill atorvastatin (LIPITOR) 40 mg tablet Take 1 tablet by mouth once daily. 90 tablet 0 dulaglutide (TRULICITY) 3 mg/0.5 mL pen injector Inject 3 mg subcutaneously one time a week. 6 mL 0 insulin lispro (HUMALOG KWIKPEN) 100 unit/mL Inject 15 Units subcutaneously three times daily before meals. insulin glargine (LANTUS SOLOSTAR U-100 INSULIN) 100 unit/mL (3 mL) Inject 60 Units subcutaneously daily at bedtime. 5 Each 11 Blood-Glucose Meter (FREESTYLE LITE METER) monitoring kit Free style lite Insulinx 1 Each 0 midodrine (PROAMATINE) 10 mg tablet Take 10 mg by mouth twice daily. Take last dose no later than 6 pb or within 4 hours of sleep levothyroxine (SYNTHROID) 175 mcg tablet Take 1 tablet by mouth once daily. Take on empty stomach. For Thyroid. 30 tablet 11 rizatriptan (MAXALT) 10 mg tablet TAKE 1 TABLET BY MOUTH needed for FOR MIGRAINE headache. May repeat every 2 (TWO) hours as needed for migraine.Max of 3 (THREE) tablets per 6 tablet 1 insulin lispro (HUMALOG KWIKPEN INSULIN) 100 unit/mL Inject 14 Units subcutaneously w MEALS. 15 mL 11 blood sugar diagnostic (BLOOD GLUCOSE TEST) test strip Test blood sugar(s) 3 times daily. Dx: Other DM Code E11.49 Insulin: Yes. Pt uses Freestyle Lite Insulinx Meter 100 Strip 11 blood sugar diagnostic (FREESTYLE INSULINX TEST STRIPS) test strip use to test blood sugar THREE TIMES DAILY 100 Strip 11 Insulin Niles, Disposable, (BD ULTRA-FINE BEN PEN NEEDLE) 32 gauge x 5/32 ndle Use one needle for each dose. four/day. 100 Each 11 aspirin 81 mg chewable tablet DAILY@0800 Lancets lancets Test blood sugar(s) 3 times daily. Dx: Type 2 DM - Uncontrolled E11.65 Insulin: Yes 100 Each 11 trimethoprim-polymyxin (POLYTRIM) 10,000 unit- 1 mg/mL ophthalmic solution Use 2 Drops in both eyes every 4 hours for 7 days. 10 mL 0 clindamycin (CLEOCIN) 300 mg capsule Take 1 capsule by mouth three times a day for 7 days. 21 capsule 0 fluticasone (FLONASE) 50 mcg/actuation nasal spray Use 2 Sprays in each nostril once daily. Rinse mouth after use. [address] (PROTONIX) 40 mg tablet Take 1 tablet by mouth twice daily. Take on empty stomach, 1/2 hr before meal. 60 tablet 2 No current facility-administered medications for this visit. PAST SURGICAL HISTORY Procedure Laterality Date ABDOMINAL SURGERY HX BREAST LUMPECTOMY HX Left BREAST SURGERY HX SECTION HX COLSC FLX W/RMVL OF TUMOR POLYP LESION SNARE TQ 05/12/2014 2 polyp desc colon-tubular adenomas, repeat scope in 3 years EGD TRANSORAL BIOPSY SINGLE/MULTIPLE 05/12/2014 gastritis/gastric ulcers EGD TRANSORAL BIOPSY SINGLE/MULTIPLE 03/25 (more content not included)... [facility] 06-24-2023 Miscellaneous Notes Letter mailed to pt notifying her we've attempted to reach her by phone to assist in scheduling a hospital f/u. She's scheduled to see MARILEE in June. Pt also went back to ED on 06/10/23 per Triage note. Anh Simms Ma Message left for patient to call office back. Shonda Valladares LPN Message left for pt to call back. Ana Ackerman Ma Phoned patient and message left for her to return call to schedule ER follow up visit. documented in this encounter [facility] 06-10-2023 Miscellaneous Notes Pt notified of Dr Lopez's message. Pt verbalizes understanding. Advises that she will go to [facility] as instructed. Miguel Ángel Santoyo LPN Recommend ER for disimpaction of hard stool in rectum and constipation x1 week. Patient calling to say she is very constipated . Has not had BM in one week. She feels hard stool in rectum but unable to pass. Has been straining x 2 days with blood on toilet tissue and in brief. She has already tried stool softener, Miralax and 10 ounces Magnesium Citrate one hour ago. She says she was in [facility] on 06/04 with abdominal pain and received morphine. She states she has abdominal and rectal pain 9/10 mostly when she is straining to have BM. Reviewed triage protocol guidelines with patient. Disposition: See PCP within 24 hours. She is asking for PCP recommendation today. Mindi Temple RN Reason for Disposition Last bowel movement (BM) > 4 days ago Answer Assessment - Initial Assessment Questions 1. STOOL PATTERN OR FREQUENCY: normal BM every 3 days Last BM one week ago 2. STRAINING: Straining x 2 days to have BM 3. RECTAL PAIN: Patient states she is having rectal pain 9/10 when she strains 4. STOOL COMPOSITION: The stool feels hard but she is unable to pass 5. BLOOD ON STOOLS: Patient states there is blood on the toilet tissue and staining her brief 6. CHRONIC CONSTIPATION: Seen recently 04/16 for acute constipation 7. CHANGES IN DIET OR HYDRATION: No change in diet. She states She drinks 10-12 glasses of water/day 8. MEDICATIONS: Says she was in [facility] ER on 06/04 with abdominal pain and received Morphine 9. LAXATIVES: She took stool softener last evening. She took Miralax this morning. She drank 10 ounces of Magnesium citrate one hour ago 10. ACTIVITY: No change in activity in the last week 11. CAUSE: Unknown 12. OTHER SYMPTOMS: nausea, She says she has abdominal pain 9/10 13. MEDICAL HISTORY: No history of hemorrhoids, rectal surgery, rectal fissure Protocols used: [id number] documented in this encounter [facility] 05-24-2023 Miscellaneous Notes Second attempt to reach patient by phone with no answer. Left additional VM to return call to office. As patient does not have [facility], also sent letter to patients home address to have lab work completed. ALEX Harry TC to patient with no answer. Left VM to return call to office. ALEX Harry Rx sent. Patient needs to come in and get blood work done which was ordered on 04/07. Patient reviewed for Population Health Medication Adherence Pended the following prescription(s) for review. Requested Prescriptions Pending Prescriptions Disp Refills atorvastatin (LIPITOR) 40 mg tablet 90 tablet 0 Sig: Take 1 tablet by mouth once daily. dulaglutide (TRULICITY) 3 mg/0.5 mL pen injector 6 mL 0 Sig: Inject 3 mg subcutaneously one time a week. Future Appointments Date Time Provider Department Center 07/09/2023 1:00 PM Jesica Mina APRN.DENTURE PROCESSOR [facility] Please review and refill if appropriate. Thank you. Debra Greer May 20, 2023 2:17 PM documented in this encounter [facility] 05-20-2023 Note HNO ID: [id number] Author: Debra Greer Service: ? Author Type: ? Type: Progress Notes Filed: 05/20/2023 2:17 PM Note Text: Terrance Brar is identified through a medication adherence outreach initiative based on pharmacy claims data from [employer] (insurer) for Non-insulin DM medication(s) and Statin medication(s). Patient is reviewed 05/20/23 due to medication adherence concerns with the following medications (name, strength, sig): Atorvastatin 40mg every day, Trulicity 3mg weekly. Per data/report, last fill date and days supply: Atorvastatin due 03/23/23, Trulicity due 04/20/23 Per reconcile dispense, last fill date and days supply: Atorvastatin filled 02/21/23 for 30 days, Trulicity filled 03/23/23 for 28 days Any need for new prescription (I.e. out of refills on most recent prescription) YES/NO/Active: yes Outcome of review/outreach: (choose outcome source and status) - No refills remaining Debra Greer [facility] 05-20-2023 History of Present illness Narrative Terrance Brra is identified through a medication adherence outreach initiative based on pharmacy claims data from [employer] (insurer) for Non-insulin DM medication(s) and Statin medication(s). Patient is reviewed 05/20/23 due to medication adherence concerns with the following medications (name, strength, sig): Atorvastatin 40mg every day, Trulicity 3mg weekly. Per data/report, last fill date and days supply: Atorvastatin due 03/23/23, Trulicity due 04/20/23 Per reconcile dispense, last fill date and days supply: Atorvastatin filled 02/21/23 for 30 days, Trulicity filled 03/23/23 for 28 days Any need for new prescription (I.e. out of refills on most recent prescription) YES/NO/Active: yes Outcome of review/outreach: (choose outcome source and status) - No refills remaining Debra Greer documented in this encounter [facility] 05-20-2023 Note Patient Outreach ( YVONNE) TERRANCE BRAR ([id number]) 1965 F Date Time Provider Department 05/20/23 DWAYNE LOPEZ During your visit today, we recorded the following information about you: Doc Greerley 05/20/2023 2:17 PM Signed Susital Brar is identified through a medication adherence outreach initiative based on pharmacy claims data from [employer] (insurer) for Non-insulin DM medication(s) and Statin medication(s). Patient is reviewed 05/20/23 due to medication adherence concerns with the following medications (name, strength, sig): Atorvastatin 40mg every day, Trulicity 3mg weekly. Per data/report, last fill date and days supply: Atorvastatin due 03/23/23, Trulicity due 04/20/23 Per reconcile dispense, last fill date and days supply: Atorvastatin filled 02/21/23 for 30 days, Trulicity filled 03/23/23 for 28 days Any need for new prescription (I.e. out of refills on most recent prescription) YES/NO/Active: yes Outcome of review/outreach: (choose outcome source and status) - No refills remaining Debra Greer Allergies As of Date: 05/20/2023 Noted Allergy Reaction CELEBREX (CELECOXIB) 12/26/2019 2 - Rash CIPROFLOXACIN 10/05/2008 7 - Swelling CODEINE 05/17/2014 4 - Hives 9 - Itching IBUPROFEN 04/08/2007 4 - Hives METFORMIN 06/25/2017 5 - Intolerance Comments: GI UPSET NAPROXYN (NAPROXEN) 04/08/2007 4 - Hives PENICILLINS 04/08/2007 4 - Hives TORADOL (KETOROLAC) 09/28/2019 8 - GI Upset ULTRAM (TRAMADOL HCL) 04/08/2007 Comments: facial/ throat swelling Date Reviewed: 04/23/2023 Reviewed by: Vernon Degroot APRN.DENTURE PROCESSOR - Fully Assessed Reason for Visit: Allied Health Visit [5] Cmt: Medication Adherence Outreach Prescriptions as of 05/20/2023 - atorvastatin (LIPITOR) 40 mg tablet Take 40 mg by mouth once daily. - insulin lispro (HUMALOG KWIKPEN) 100 unit/mL Inject 15 Units subcutaneously three times daily before meals. - dulaglutide (TRULICITY) 3 mg/0.5 mL pen injector Inject 3 mg subcutaneously one time a week. - insulin glargine (LANTUS SOLOSTAR U-100 INSULIN) 100 unit/mL (3 mL) Inject 60 Units subcutaneously daily at bedtime. - Blood-Glucose Meter (FREESTYLE LITE METER) monitoring kit Free style lite Insulinx - terbinafine HCl (LAMISIL) 250 mg tablet Take 1 tablet by mouth once daily. - midodrine (PROAMATINE) 10 mg tablet Take 10 mg by mouth twice daily. Take last dose no later than 6 pb or within 4 hours of sleep - pantoprazole DR (PROTONIX) 40 mg tablet Take 1 tablet by mouth twice daily. Take on empty stomach, 1/2 hr before meal. - levothyroxine (SYNTHROID) 175 mcg tablet Take 1 tablet by mouth once daily. Take on empty stomach. For Thyroid. - rizatriptan (MAXALT) 10 mg tablet TAKE 1 TABLET BY MOUTH needed for FOR MIGRAINE headache. May repeat every 2 (TWO) hours as needed for migraine.Max of 3 (THREE) tablets per - insulin lispro (HUMALOG KWIKPEN INSULIN) 100 unit/mL Inject 14 Units subcutaneously w MEALS. - blood sugar diagnostic (BLOOD GLUCOSE TEST) test strip Test blood sugar(s) 3 times daily. Dx: Other DM Code E11.49 Insulin: Yes. Pt uses Freestyle Lite Insulinx Meter - blood sugar diagnostic (FREESTYLE INSULINX TEST STRIPS) test strip use to test blood sugar THREE TIMES DAILY - Insulin Niles, Disposable, (BD ULTRA-FINE BEN PEN NEEDLE) 32 gauge x 5/32 ndle Use one needle for each dose. four/day. - aspirin 81 mg chewable tablet DAILY@0800 - Lancets lancets Test blood sugar(s) 3 times daily. 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] 12/07/2008 Routine General Medical Examination at [facility]*12/10/2008 06/03/2015 Benign neoplasm of colon [D12.6] 05/15/2014 Abdominal pain, epigastric [R10.13] 05/15/2014 06/03/2015 Gastric ulcer [K25.9] 05/15/2014 Abdominal pain, right upper quadrant [R10.11] 06/05/2014 06/03/2015 Lumbar degenerative disc disease [M51.36] 03/12/2015 Constipation [K59.00] 03/12/2015 06/03/2015 Anemia [D64.9] 03/12/2015 02/27/2016 Hypothyroidism [E03.9] 03/12/2015 Hyperlipidemia associated with type 2 diabetes *03/12/2015 Carpal tunnel syndrome, left [G56.02] 05/27/2015 01/27/2017 Carpal tunnel syndrome, right [G56.01] 05/27/2015 01/27/2017 Trigger thumb of left hand [M65.312] 07/23/2015 01/27/2017 Trigger ring finger of right hand [M65.341] 01/28/2016 Diabetes mellitus type 2 with neurological jaciel*03/02/2016 De Quervain's tenosynovitis [M65.4] 04/02/2016 Trigger thumb of right hand [M65.311] more content not included)... [facility] 05-04-2023 Note HNO ID: [id number] Author: Ariadna Kyle Service: ? Author Type: ? Type: Progress Notes Filed: 05/04/2023 2:15 PM Note Text: Terrance Brar is identified through a medication adherence outreach initiative based on pharmacy claims data from [employer] (insurer) for Non-insulin DM medication(s) and Statin medication(s). Patient is reviewed 05/04/23 due to medication adherence concerns with the following medications (name, strength, sig): atorvastatin 40mg, take 1 tablet daily, trulicity 3/0.5 pen, inject once weekly. Per data/report, last fill date and days supply: atorvastatin due 03/23/23, trulicity due 04/20/23 Per reconcile dispense, last fill date and days supply: atorvastatin filled 02/21/23 for 30 days, trulicity filled 03/23/23 for 28 days Outcome of review/outreach: (choose outcome source and status) -Tried calling, no answer Ariadna Kyle [facility] 05-04-2023 History of Present illness Narrative Terrance Brar is identified through a medication adherence outreach initiative based on pharmacy claims data from [employer] (insurer) for Non-insulin DM medication(s) and Statin medication(s). Patient is reviewed 05/04/23 due to medication adherence concerns with the following medications (name, strength, sig): atorvastatin 40mg, take 1 tablet daily, trulicity 3/0.5 pen, inject once weekly. Per data/report, last fill date and days supply: atorvastatin due 03/23/23, trulicity due 04/20/23 Per reconcile dispense, last fill date and days supply: atorvastatin filled 02/21/23 for 30 days, trulicity filled 03/23/23 for 28 days Outcome of review/outreach: (choose outcome source and status) -Tried calling, no answer Ariadna Kyle documented in this encounter [facility] 05-04-2023 Note Patient Outreach ( POHE) TERRANCE BRAR ([id number]) 1965 F Date Time Provider Department 05/04/23 DWAYNE LOPEZ During your visit today, we recorded the following information about you: Ariadna Kyle 05/04/2023 2:15 PM Signed Terrance Brar is identified through a medication adherence outreach initiative based on pharmacy claims data from [employer] (insurer) for Non-insulin DM medication(s) and Statin medication(s). Patient is reviewed 05/04/23 due to medication adherence concerns with the following medications (name, strength, sig): atorvastatin 40mg, take 1 tablet daily, trulicity 3/0.5 pen, inject once weekly. Per data/report, last fill date and days supply: atorvastatin due 03/23/23, trulicity due 04/20/23 Per reconcile dispense, last fill date and days supply: atorvastatin filled 02/21/23 for 30 days, trulicity filled 03/23/23 for 28 days Outcome of review/outreach: (choose outcome source and status) -Tried calling, no answer Ariadna Kyle Allergies As of Date: 05/04/2023 Noted Allergy Reaction CELEBREX (CELECOXIB) 12/26/2019 2 - Rash CIPROFLOXACIN 10/05/2008 7 - Swelling CODEINE 05/17/2014 4 - Hives 9 - Itching IBUPROFEN 04/08/2007 4 - Hives METFORMIN 06/25/2017 5 - Intolerance Comments: GI UPSET NAPROXYN (NAPROXEN) 04/08/2007 4 - Hives PENICILLINS 04/08/2007 4 - Hives TORADOL (KETOROLAC) 09/28/2019 8 - GI Upset ULTRAM (TRAMADOL HCL) 04/08/2007 Comments: facial/ throat swelling Date Reviewed: 04/23/2023 Reviewed by: Vernon Degroot APRN.DENTURE PROCESSOR - Fully Assessed Prescriptions as of 05/04/2023 - atorvastatin (LIPITOR) 40 mg tablet Take 40 mg by mouth once daily. - insulin lispro (HUMALOG KWIKPEN) 100 unit/mL Inject 15 Units subcutaneously three times daily before meals. - dulaglutide (TRULICITY) 3 mg/0.5 mL pen injector Inject 3 mg subcutaneously one time a week. - insulin glargine (LANTUS SOLOSTAR U-100 INSULIN) 100 unit/mL (3 mL) Inject 60 Units subcutaneously daily at bedtime. - Blood-Glucose Meter (FREESTYLE LITE METER) monitoring kit Free style lite Insulinx - terbinafine HCl (LAMISIL) 250 mg tablet Take 1 tablet by mouth once daily. - midodrine (PROAMATINE) 10 mg tablet Take 10 mg by mouth twice daily. Take last dose no later than 6 pb or within 4 hours of sleep - pantoprazole DR (PROTONIX) 40 mg tablet Take 1 tablet by mouth twice daily. Take on empty stomach, 1/2 hr before meal. - levothyroxine (SYNTHROID) 175 mcg tablet Take 1 tablet by mouth once daily. Take on empty stomach. For Thyroid. - rizatriptan (MAXALT) 10 mg tablet TAKE 1 TABLET BY MOUTH needed for FOR MIGRAINE headache. May repeat every 2 (TWO) hours as needed for migraine.Max of 3 (THREE) tablets per - insulin lispro (HUMALOG KWIKPEN INSULIN) 100 unit/mL Inject 14 Units subcutaneously w MEALS. - blood sugar diagnostic (BLOOD GLUCOSE TEST) test strip Test blood sugar(s) 3 times daily. Dx: Other DM Code E11.49 Insulin: Yes. Pt uses Freestyle Lite Insulinx Meter - blood sugar diagnostic (FREESTYLE INSULINX TEST STRIPS) test strip use to test blood sugar THREE TIMES DAILY - Insulin Niles, Disposable, (BD ULTRA-FINE BEN PEN NEEDLE) 32 gauge x 5/32 ndle Use one needle for each dose. four/day. - aspirin 81 mg chewable tablet DAILY@0800 - Lancets lancets Test blood sugar(s) 3 times daily. Dx: Type 2 DM - Uncontrolled E11.65 Insulin: Yes Problem List As Of Date 05/04/2023 Noted Resolved Depressive disorder, not elsewhere classified [*10/05/2008 02/27/2016 Diabetes mellitus type 2, uncontrolled, without*10/05/2008 02/27/2016 CALCULUS OF KIDNEY [N20.0] 10/05/2008 Tobacco Use Disorder [F17.200] 10/10/2008 Hyperparathyroidism (HCC) [E21.3] 10/24/2008 Disturbance in sleep behavior [G47.9] 12/07/2008 NONTOX UNINODULAR GOITER [E04.1] 12/07/2008 [facility]*12/10/2008 06/03/2015 Benign neoplasm of colon [D12.6] 05/15/2014 Abdominal pain, epigastric [R10.13] 05/15/2014 06/03/2015 Gastric ulcer [K25.9] 05/15/2014 Abdominal pain, right upper quadrant [R10.11] 06/05/2014 06/03/2015 Lumbar degenerative disc disease [M51.36] 03/12/2015 Constipation [K59.00] 03/12/2015 06/03/2015 Anemia [D64.9] 03/12/2015 02/27/2016 Hypothyroidism [E03.9] 03/12/2015 Hyperlipidemia associated with type 2 diabetes *03/12/2015 Carpal tunnel syndrome, left [G56.02] 05/27/2015 01/27/2017 Carpal tunnel syndrome, right [G56.01] 05/27/2015 01/27/2017 Trigger thumb of left hand [M65.312] 07/23/2015 01/27/2017 Trigger ring finger of right hand [M65.341] 01/28/2016 Diabetes mellitus type 2 with neurological jaciel*03/02/2016 De Quervain's tenosynovitis [M65.4] 04/02/2016 Trigger thumb of right hand [M65.311] 04/02/2016 Blood in the urine [R31.9] 01/22/2017 Trigger middle finger of right hand [M65.331] 06/21/2017 Trigger finger, right little finger [M65.35 (more content not included)... [facility] 04-23-2023 Note HNO ID: [id number] Author: Vernon Degroot APRN.DENTURE PROCESSOR Service: ? Author Type: Nurse Practitioner Type: Progress Notes Filed: 04/23/2023 3:03 PM Note Text: Subjective HPI HPI Terrance Brar is a 57 year old female who presents today for CC of right lower dental pain. This started 1 day ago. Has tried otc medication for relief. Symptoms are worsened by nothing. Risk factors hx of poor dental health and infections. Patient diabetic. .Patient presents with: Dental Problem: Right upper side tooth pain x 1 day PAST MEDICAL HISTORY Diagnosis Date Anemia 03/12/2015 Bipolar 2 disorder (HCC) 05/26/2018 Chronic lower back pain Dr. Renteria Constipation 03/12/2015 Diabetes mellitus Excessive or frequent menstruation Hyperlipidemia associated with type 2 diabetes mellitus (HCC) 03/12/2015 Hyperparathyroidism, unspecified (HCC) 10/24/2008 Hypothyroidism 03/12/2015 Lumbar degenerative disc disease 03/12/2015 Stopped pain management 6-15 Onychomycosis PTSD (post-traumatic stress disorder) 05/26/2018 PUD (peptic ulcer disease) 03/12/2015 Status post cystoscopy, left uretroscopy, laser lithotripsy of stones, w/stent 03/18/2017 Tobacco use disorder 10/10/2008 Has tried to quit in past, some success. Tubular adenoma of colon 04/2014 repeat colonoscopy in 3 years Well controlled type 2 diabetes mellitus with neurological manifestations (HCC) 02/27/2016 PAST SURGICAL HISTORY Procedure Laterality Date ABDOMINAL SURGERY HX BREAST LUMPECTOMY HX Left BREAST SURGERY HX SECTION HX COLSC FLX W/RMVL OF TUMOR POLYP LESION SNARE TQ 05/12/2014 2 polyp desc colon-tubular adenomas, repeat scope in 3 years EGD TRANSORAL BIOPSY SINGLE/MULTIPLE 05/12/2014 gastritis/gastric ulcers EGD TRANSORAL BIOPSY SINGLE/MULTIPLE 04/08/2016 INCISE FINGER TENDON SHEATH Right 06/30/2017 Right middle and 5th trigger finger releases INCISE FINGER TENDON SHEATH Left Left index and middle trigger finger releases INCISE FINGER TENDON SHEATH Left 10/10/2020 Left tumb,ring, and small trigger finger releases LAPAROSCOPY W/RMVL ADNEXAL STRUCTURES 11/23/2011 laprascopic BSO for left ov. cystANDadhesions LAPS SURG CHOLECYSTECTOMY W/CHOLANGIOGRAPHY 06/05/2014 normal IOC, liver/diaphragm adhesions NEUROPLASTY AND/TRANSPOS MEDIAN NRV CARPAL TUNNE Left 06/11/2015 Carpal tunnel decomp NEUROPLASTY AND/TRANSPOS MEDIAN NRV CARPAL TUNNE Right 07/19/2015 Carpal tunnel decomp PAST SURGICAL HISTORY OF left wrist lump, removal of ganlion cyst PAST SURGICAL HISTORY OF partial parathyroidectomy PAST SURGICAL HISTORY OF 10/2015 kidney stone surgery with stent PAST SURGICAL HISTORY OF 06/2019 Steroid/epidural injection lumbar S NOVASURE ablation SUPRACERVICAL ABDL HYSTER W/WO RMVL TUBE OVARY 2008 ovaries remain VAGINAL HYSTERECTOMY ALLERGIES Celebrex [Celecoxib], Ciprofloxacin, Codeine, Ibuprofen, Metformin, Naproxyn [Naproxen], Penicillins, Toradol [Ketorolac], and Ultram [Tramadol Hcl] MEDICATIONS atorvastatin (LIPITOR) 40 mg tablet Take 40 mg by mouth once daily. insulin lispro (HUMALOG KWIKPEN) 100 unit/mL Inject 15 Units subcutaneously three times daily before meals. dulaglutide (TRULICITY) 3 mg/0.5 mL pen injector Inject 3 mg subcutaneously one time a week. insulin glargine (LANTUS SOLOSTAR U-100 INSULIN) 100 unit/mL (3 mL) Inject 60 Units subcutaneously daily at bedtime. Blood-Glucose Meter (FREESTYLE LITE METER) monitoring kit Free style lite Insulinx terbinafine HCl (LAMISIL) 250 mg tablet Take 1 tablet by mouth once daily. midodrine (PROAMATINE) 10 mg tablet Take 10 mg by mouth twice daily. Take last dose no later than 6 pb or within 4 hours of sleep pantoprazole DR (PROTONIX) 40 mg tablet Take 1 tablet by mouth twice daily. Take on empty stomach, 1/2 hr before meal. levothyroxine (SYNTHROID) 175 mcg tablet Take 1 tablet by mouth once daily. Take on empty stomach. For Thyroid. rizatriptan (MAXALT) 10 mg tablet TAKE 1 TABLET BY MOUTH needed for FOR MIGRAINE headache. May repeat every 2 (TWO) hours as needed for migraine.Max of 3 (THREE) tablets per insulin lispro (HUMALOG KWIKPEN INSULIN) 100 unit/mL Inject 14 Units subcutaneously w MEALS. blood sugar diagnostic (BLOOD GLUCOSE TEST) test strip Test blood sugar(s) 3 times daily. Dx: Other DM Code E11.49 Insulin: Yes. Pt uses Freestyle Lite Insulinx Meter blood sugar diagnostic (FREESTYLE INSULINX TEST STRIPS) test strip use to test blood sugar THREE TIMES DAILY Insulin Niles, Disposable, (BD ULTRA-FINE BEN PEN NEEDLE) 32 gauge x 5/32 ndle Use one needle for each dose. four/day. aspirin 81 mg chewable tablet DAILY@0800 Lancets lancets Test blood sugar(s) 3 times daily. Dx: Type 2 DM - Uncontrolled E11.65 Insulin: Yes clindamycin (CLEOCIN) 300 mg capsule Take 1 capsule by mouth three times daily for 7 days. FAMILY HISTORY Problem Relation Age of Onset Diabetes Mother CHF, DM eye (more content not included)... [facility] 04-23-2023 History of Present illness Narrative Images from the original note were not included. Subjective HPI HPI Jenniferneil Brar is a 57 year old female who presents today for CC of right lower dental pain. This started 1 day ago. Has tried otc medication for relief. Symptoms are worsened by nothing. Risk factors hx of poor dental health and infections. Patient diabetic. .Patient presents with: Dental Problem: Right upper side tooth pain x 1 day PAST MEDICAL HISTORY Diagnosis Date Anemia 03/12/2015 Bipolar 2 disorder (HCC) 05/26/2018 Chronic lower back pain Dr. Renteria Constipation 03/12/2015 Diabetes mellitus Excessive or frequent menstruation Hyperlipidemia associated with type 2 diabetes mellitus (HCC) 03/12/2015 Hyperparathyroidism, unspecified (HCC) 10/24/2008 Hypothyroidism 03/12/2015 Lumbar degenerative disc disease 03/12/2015 Stopped pain management 6-15 Onychomycosis PTSD (post-traumatic stress disorder) 05/26/2018 PUD (peptic ulcer disease) 03/12/2015 Status post cystoscopy, left uretroscopy, laser lithotripsy of stones, w/stent 03/18/2017 Tobacco use disorder 10/10/2008 Has tried to quit in past, some success. Tubular adenoma of colon 04/2014 repeat colonoscopy in 3 years Well controlled type 2 diabetes mellitus with neurological manifestations ([facility]) 02/27/2016 PAST SURGICAL HISTORY Procedure Laterality Date ABDOMINAL SURGERY HX BREAST LUMPECTOMY HX Left BREAST SURGERY HX SECTION HX COLSC FLX W/RMVL OF TUMOR POLYP LESION SNARE TQ 05/12/2014 2 polyp desc colon-tubular adenomas, repeat scope in 3 years EGD TRANSORAL BIOPSY SINGLE/MULTIPLE 05/12/2014 gastritis/gastric ulcers EGD TRANSORAL BIOPSY SINGLE/MULTIPLE 04/08/2016 INCISE FINGER TENDON SHEATH Right 06/30/2017 Right middle and 5th trigger finger releases INCISE FINGER TENDON SHEATH Left Left index and middle trigger finger releases INCISE FINGER TENDON SHEATH Left 10/10/2020 Left tumb,ring, and small trigger finger releases LAPAROSCOPY W/RMVL ADNEXAL STRUCTURES 11/23/2011 laprascopic BSO for left ov. cyst&adhesions LAPS SURG CHOLECYSTECTOMY W/CHOLANGIOGRAPHY 06/05/2014 normal IOC, liver/diaphragm adhesions NEUROPLASTY &/TRANSPOS MEDIAN NRV CARPAL TUNNE Left 06/11/2015 Carpal tunnel decomp NEUROPLASTY &/TRANSPOS MEDIAN NRV CARPAL TUNNE Right 07/19/2015 Carpal tunnel decomp PAST SURGICAL HISTORY OF left wrist lump, removal of ganlion cyst PAST SURGICAL HISTORY OF partial parathyroidectomy PAST SURGICAL HISTORY OF 10/2015 kidney stone surgery with stent PAST SURGICAL HISTORY OF 06/2019 Steroid/epidural injection lumbar S NOVASURE ablation SUPRACERVICAL ABDL HYSTER W/WO RMVL TUBE OVARY 2009 ovaries remain VAGINAL HYSTERECTOMY ALLERGIES Celebrex [Celecoxib], Ciprofloxacin, Codeine, Ibuprofen, Metformin, Naproxyn [Naproxen], Penicillins, Toradol [Ketorolac], and Ultram [Tramadol Hcl] MEDICATIONS atorvastatin (LIPITOR) 40 mg tablet Take 40 mg by mouth once daily. insulin lispro (HUMALOG KWIKPEN) 100 unit/mL Inject 15 Units subcutaneously three times daily before meals. dulaglutide (TRULICITY) 3 mg/0.5 mL pen injector Inject 3 mg subcutaneously one time a week. insulin glargine (LANTUS SOLOSTAR U-100 INSULIN) 100 unit/mL (3 mL) Inject 60 Units subcutaneously daily at bedtime. Blood-Glucose Meter (FREESTYLE LITE METER) monitoring kit Free style lite Insulinx terbinafine HCl (LAMISIL) 250 mg tablet Take 1 tablet by mouth once daily. midodrine (PROAMATINE) 10 mg tablet Take 10 mg by mouth twice daily. Take last dose no later than 6 pb or within 4 hours of sleep pantoprazole DR (PROTONIX) 40 mg tablet Take 1 tablet by mouth twice daily. Take on empty stomach, 1/2 hr before meal. levothyroxine (SYNTHROID) 175 mcg tablet Take 1 tablet by mouth once daily. Take on empty stomach. For Thyroid. rizatriptan (MAXALT) 10 mg tablet TAKE 1 TABLET BY MOUTH needed for FOR MIGRAINE headache. May repeat every 2 (TWO) hours as needed for migraine.Max of 3 (THREE) tablets per insulin lispro (HUMALOG KWIKPEN INSULIN) 100 unit/mL Inject 14 Units subcutaneously w MEALS. blood sugar diagnostic (BLOOD GLUCOSE TEST) test strip Test blood sugar(s) 3 times daily. Dx: Other DM Code E11.49 Insulin: Yes. Pt uses Freestyle Lite Insulinx Meter blood sugar diagnostic (FREESTYLE INSULINX TEST STRIPS) test strip use to test blood sugar THREE TIMES DAILY Insulin Niles, Disposable, (BD ULTRA-FINE BEN PEN NEEDLE) 32 gauge x 532 ndle Use one needle for each dose. four/day. aspirin 81 mg chewable tablet DAILY@0800 Lancets lancets Test blood sugar(s) 3 times daily. Dx: Type 2 DM - Uncontrolled E11.65 Insulin: Yes clindamycin (CLEOCIN) 300 mg capsule Take 1 capsule by mouth three times daily for 7 days. FAMILY HISTORY Problem Relation Age of Onset Diabetes Mother CHF, DM eye disease Hypertension Mother other (renal failure) Mother other (unknown) Father Cancer Maternal Grandmother Cancer Paternal Grandmother Cancer Maternal Aunt Lung Cancer Cancer Paternal Aunt Renal Cancer Social History Tobacco Use Smoking status: Former Packs/day: 0.50 Types: Cigarettes Start date: 06/25/1977 Quit date: 10/07/2020 Years since quittin.5 Smokeless tobacco: Never Vaping Use Vaping Use: Never used Substance Use Topics Alcohol use: No Drug use: No ROS Objective Blood pressure 130/82, pulse 94, temperature 37.8 C (100 F), resp. rate 21, weight 81.1 kg (178 lb 12.8 oz), last menstrual period 11/27/2008, SpO2 99 %. Physical Exam Constitutional: General: She is not in acute distress. Appearance: She is not toxic-appearing or diaphoretic. HENT: Head: Normocephalic and atraumatic. Nose: Nose normal. Mouth/Throat: Lips: [place]. Mouth: Mucous membranes are moist. Pharynx: Uvula midline. No posterior oropharyngeal erythema. Pulmonary: Effort: Pulmonary effort is normal. No accessory muscle usage or respiratory distress. Lymphadenopathy: Cervical: No cervical adenopathy. Right cervical: No superficial cervical adenopathy. Left cervical: No superficial cervical adenopathy. Neurological: Mental Status: She is alert and oriented to person, place, and time. ASSESSMENT/PLAN: 1. Toothache - ICD9: 525.9, ICD10: K08.89 Take medication as ordered See dentist ira Follow up if signs of infection worsen - CLINDAMYCIN HCL 300 MG CAPSULE Vernon Degroot APRN.DENTURE PROCESSOR documented in this encounter [facility] 04-08-2023 Note HNO ID: [id number] Author: Shital Menezes Service: ? Author Type: ? Type: Progress Notes Filed: 04/08/2023 1:52 PM Note Text: POPULATION HEALTH NAVIGATION OUTREACH Action/FYI Pt scheduled Patient Identified by Name and : YES, via phone Outreach Outcome/Action Spoke to patient / parent / legal guardian: Patient scheduled Did you use a PCP flex slot to schedule this appointment? No Reason for Outreach Care Gap or Scheduling/Wellness visits Payer: Payor: [employer] KENNEDY HAN[employer] / Plan: [employer] HMO / Product Type: HMO / Care Gap Reviewed:: Specialty Scheduling Reminder: Reminder note to check Health Maintenance for items below Health Maintenance items due: MAMMOGRAM due on 01/22/2018 DIABETIC FOOT EXAM due on 06/21/2018 HBA1C due on 02/22/2020 LDL CHOLESTEROL due on 09/18/2020 COLORECTAL CANCER SCREENING due on 10/27/2020 URINE ALBUMIN:CREATININE RATIO due on 12/25/2020 DILATED RETINAL EXAM due on 03/25/2021 DEPRESSION ASSESSMENT Never done Navigation Signature: Shital Menezes April 08, 2023 1:51 PM [facility] 04-08-2023 Note Patient Outreach (AC CC) TERRANCE BRAR ([id number]) 1965 F Date Time Provider Department 04/08/23 PCP ([facility]) [facility] During your visit today, we recorded the following information about you: Shital Menezes 04/08/2023 1:52 PM Signed POPULATION HEALTH NAVIGATION OUTREACH Action/FYI Pt scheduled Patient Identified by Name and : YES, via phone Outreach Outcome/Action Spoke to patient / parent / legal guardian: Patient scheduled Did you use a PCP flex slot to schedule this appointment? No Reason for Outreach Care Gap or Scheduling/Wellness visits Payer: Payor: VINH LEVIN / Plan: [employer] HMO / Product Type: HMO / Care Gap Reviewed:: Specialty Scheduling Reminder: Reminder note to check Health Maintenance for items below Health Maintenance items due: MAMMOGRAM due on 01/22/2018 DIABETIC FOOT EXAM due on 06/21/2018 HBA1C due on 02/22/2020 LDL CHOLESTEROL due on 09/18/2020 COLORECTAL CANCER SCREENING due on 10/27/2020 URINE ALBUMIN:CREATININE RATIO due on 12/25/2020 DILATED RETINAL EXAM due on 03/25/2021 DEPRESSION ASSESSMENT Never done Navigation Signature: Shital Menezes April 08, 2023 1:51 PM Allergies As of Date: 04/08/2023 Noted Allergy Reaction CELEBREX (CELECOXIB) 12/26/2019 2 - Rash CIPROFLOXACIN 10/05/2008 7 - Swelling CODEINE 05/17/2014 4 - Hives 9 - Itching IBUPROFEN 04/08/2007 4 - Hives METFORMIN 06/25/2017 5 - Intolerance Comments: GI UPSET NAPROXYN (NAPROXEN) 04/08/2007 4 - Hives PENICILLINS 04/08/2007 4 - Hives TORADOL (KETOROLAC) 09/28/2019 8 - GI Upset ULTRAM (TRAMADOL HCL) 04/08/2007 Comments: facial/ throat swelling Date Reviewed: 03/24/2023 Reviewed by: Tanika Steiner LPN - Fully Assessed Prescriptions as of 04/08/2023 - atorvastatin (LIPITOR) 40 mg tablet Take 40 mg by mouth once daily. - insulin lispro (HUMALOG KWIKPEN INSULIN) 100 unit/mL Inject 15 Units subcutaneously three times daily before meals. - dulaglutide (TRULICITY) 3 mg/0.5 mL pen injector Inject 3 mg subcutaneously one time a week. - insulin glargine (LANTUS SOLOSTAR U-100 INSULIN) 100 unit/mL (3 mL) Inject 60 Units subcutaneously daily at bedtime. - Blood-Glucose Meter (FREESTYLE LITE METER) monitoring kit Free style lite Insulinx - terbinafine HCl (LAMISIL) 250 mg tablet Take 1 tablet by mouth once daily. - midodrine (PROAMATINE) 10 mg tablet Take 10 mg by mouth twice daily. Take last dose no later than 6 pb or within 4 hours of sleep - pantoprazole DR (PROTONIX) 40 mg tablet Take 1 tablet by mouth twice daily. Take on empty stomach, 1/2 hr before meal. - levothyroxine (SYNTHROID) 175 mcg tablet Take 1 tablet by mouth once daily. Take on empty stomach. For Thyroid. - rizatriptan (MAXALT) 10 mg tablet TAKE 1 TABLET BY MOUTH needed for FOR MIGRAINE headache. May repeat every 2 (TWO) hours as needed for migraine.Max of 3 (THREE) tablets per - insulin lispro (HUMALOG KWIKPEN INSULIN) 100 unit/mL Inject 14 Units subcutaneously w MEALS. - blood sugar diagnostic (BLOOD GLUCOSE TEST) test strip Test blood sugar(s) 3 times daily. Dx: Other DM Code E11.49 Insulin: Yes. Pt uses Freestyle Lite Insulinx Meter - blood sugar diagnostic (FREESTYLE INSULINX TEST STRIPS) test strip use to test blood sugar THREE TIMES DAILY - Insulin Niles, Disposable, (BD ULTRA-FINE BEN PEN NEEDLE) 32 gauge x 5/32 ndle Use one needle for each dose. four/day. - aspirin 81 mg chewable tablet DAILY@0800 - Lancets lancets Test blood sugar(s) 3 times daily. 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*12/10/2008 06/03/2015 Benign neoplasm of colon [D12.6] 05/15/2014 Abdominal pain, epigastric [R10.13] 05/15/2014 06/03/2015 Gastric ulcer [K25.9] 05/15/2014 Abdominal pain, right upper quadrant [R10.11] 06/05/2014 06/03/2015 Lumbar degenerative disc disease [M51.36] 03/12/2015 Constipation [K59.00] 03/12/2015 06/03/2015 Anemia [D64.9] 03/12/2015 02/27/2016 Hypothyroidism [E03.9] 03/12/2015 Hyperlipidemia associated with type 2 diabetes *03/12/2015 Carpal tunnel syndrome, left [G56.02] 05/27/2015 01/27/2017 Carpal tunnel syndrome, right [G56.01] 05/27/2015 01/27/2017 Trigger thumb of left hand [M65.312] 07/23/2015 01/27/2017 Trigger ring finger of right hand [M65.341] 01/28/2016 Diabetes mellitus type 2 with neurological jaciel*03/02/2016 De Quervain's tenosynovitis [M65.4] (more content not included)... [facility] 04-08-2023 History of Present illness Narrative POPULATION HEALTH NAVIGATION OUTREACH Action/FYI Pt scheduled Patient Identified by Name and : YES, via phone Outreach Outcome/Action Spoke to patient / parent / legal guardian: Patient scheduled Did you use a PCP flex slot to schedule this appointment? No Reason for Outreach Care Gap or Scheduling/Wellness visits Payer: Payor: [employer] / Plan: [employer] HMO / Product Type: HMO / Care Gap Reviewed:: Specialty Scheduling Reminder: Reminder note to check Health Maintenance for items below Health Maintenance items due: MAMMOGRAM due on 01/22/2018 DIABETIC FOOT EXAM due on 06/21/2018 HBA1C due on 02/22/2020 LDL CHOLESTEROL due on 09/18/2020 COLORECTAL CANCER SCREENING due on 10/27/2020 URINE ALBUMIN:CREATININE RATIO due on 12/25/2020 DILATED RETINAL EXAM due on 03/25/2021 DEPRESSION ASSESSMENT Never done Navigation Signature: Shital Menezes April 08, 2023 1:51 PM documented in this encounter [facility] 04-07-2023 Note HNO ID: [id number] Author: Dwayne Lopez MD Service: ? Author Type: Physician Type: Progress Notes Filed: 04/12/2023 8:45 AM Note Text: Chief Complaint Patient presents with: SNF d/c follow up HPI Terrance Brar is a 57 year old female who presents here today for Above Complaints.. Patient had been a resident of [facility] since 03/2022 with discharge on 03/25. Admitted initially for weakness and inability to walk. This was attributed to her uncontrolled DM. Required 11 months of PT and has been able without walker or cane, but has wheelchair that she uses for long distances. Has her mother's old walker at home which she does not use. Did not need PT/OT on discharge per her report and has been doing home exercises as recommended by PT. . Requesting rx for handicap ced. Patient also evaluated at [facility] ED on 03/28 for constipation for 4-5 days despite laxative use. CT showed impaction without bowel obstruction and patient was disimpacted manually. Thought to be 2/[address] Renteria. Discharged home with recommendation to use OTC stool softeners and laxatives PRN. States that she has not had any constipation since discharge. Taking OTC laxative on a nightly basis with last BM yesterday morning. Denies hard stool or straining. States that she missed her appointment with DR. Renteria and has not had her Butrans patch for the last week. Needs to call today to schedule f/u. DIABETES MELLITUS: Ms. Brar was last seen 1 year ago. Since our last visit she denies increased frequency of urination, numbness, tingling or pain in extremities, new or unusual visual symptoms, and low sugar/hypoglycemic reactions. Admits to excess thirst. Follows a diabetic diet most of the time. She is compliant with medication(s) and is tolerating med(s) without any side effects. She reports checking her glucose on a three times a day schedule with sugars in the 160-170 range before meals. Did not bring meter with her today, states that it a few days ago. Patient's last HgA1C was Hemoglobin A1C (%) Date Value 11/23/2019 14.4 09/04/2019 14.4 ) Last Ophthalmology exam was within the past 12 months while in rehab. States that there was something wrong with her retina at that time. States that she has a small dark spot in the center of her vision on the right eye. Told she had cataracts as well. Last Podiatry exam was more than 12 months ago. Globus sensation from last OV on 03/24 still present despite treatment with PPI. Denies dysphagia, odynophagia, hematochezia, melena. Past medical history, appointments, medications, allergies reviewed. Previous Medical History PAST MEDICAL HISTORY Diagnosis Date Anemia 03/12/2015 Bipolar 2 disorder (HCC) 05/26/2018 Constipation 03/12/2015 Diabetes mellitus Excessive or frequent menstruation Hyperlipidemia associated with type 2 diabetes mellitus (HCC) 03/12/2015 Hyperparathyroidism, unspecified (HCC) 10/24/2008 Hypothyroidism 03/12/2015 Lumbar degenerative disc disease 03/12/2015 Stopped pain management 6-15 PTSD (post-traumatic stress disorder) 05/26/2018 PUD (peptic ulcer disease) 03/12/2015 Status post cystoscopy, left uretroscopy, laser lithotripsy of stones, w/stent 03/18/2017 Tobacco use disorder 10/10/2008 Has tried to quit in past, some success. Tubular adenoma of colon 04/2014 repeat colonoscopy in 3 years Well controlled type 2 diabetes mellitus with neurological manifestations (HCC) 02/27/2016 Previous Surgical History PAST SURGICAL HISTORY Procedure Laterality Date ABDOMINAL SURGERY HX BREAST LUMPECTOMY HX Left BREAST SURGERY HX SECTION HX COLSC FLX W/RMVL OF TUMOR POLYP LESION SNARE TQ 05/12/2014 2 polyp desc colon-tubular adenomas, repeat scope in 3 years EGD TRANSORAL BIOPSY SINGLE/MULTIPLE 05/12/2014 gastritis/gastric ulcers EGD TRANSORAL BIOPSY SINGLE/MULTIPLE 04/08/2016 INCISE FINGER TENDON SHEATH Right 06/30/2017 Right middle and 5th trigger finger releases INCISE FINGER TENDON SHEATH Left Left index and middle trigger finger releases INCISE FINGER TENDON SHEATH Left 10/10/2020 Left tumb,ring, and small trigger finger releases LAPAROSCOPY W/RMVL ADNEXAL STRUCTURES 11/23/2011 laprascopic BSO for left ov. cystANDadhesions LAPS SURG CHOLECYSTECTOMY W/CHOLANGIOGRAPHY 06/05/2014 normal IOC, liver/diaphragm adhesions NEUROPLASTY AND/TRANSPOS MEDIAN NRV CARPAL TUNNE Left 06/11/2015 Carpal tunnel decomp NEUROPLASTY AND/TRANSPOS MEDIAN NRV CARPAL TUNNE Right 07/19/2015 Carpal tunnel decomp PAST SURGICAL HISTORY OF left wrist lump, removal of ganlion cyst PAST SURGICAL HISTORY OF partial parathyroidectomy PAST SURGICAL HISTORY OF 10/2015 kidney stone surgery with stent PAST SURGICAL HISTORY OF 06/2019 Steroid/epidural injection lumbar S NOVASURE ablation SUPRACERVICAL ABDL HYSTER W/WO RMVL TUBE OVARY 2009 ovaries remain VAG (more content not included)... [facility] 04-07-2023 Miscellaneous Notes Patient here for appointment. Patient scheduled for SNF discharge follow up today at 1320. Phone call to patient to remind her to bring all discharge information to appointment today. LM to call office. Mariama Sandoval MA documented in this encounter [facility] 04-07-2023 History of Present illness Narrative Chief Complaint Patient presents with: SNF d/c follow up HPI Ashleylindaneil Brar is a 57 year old female who presents here today for Above Complaints.. Patient had been a resident of [facility] since 03/2022 with discharge on 03/25. Admitted initially for weakness and inability to walk. This was attributed to her uncontrolled DM. Required 11 months of PT and has been able without walker or cane, but has wheelchair that she uses for long distances. Has her mother's old walker at home which she does not use. Did not need PT/OT on discharge per her report and has been doing home exercises as recommended by PT. . Requesting rx for handicap placard. Patient also evaluated at [facility] ED on 03/28 for constipation for 4-5 days despite laxative use. CT showed impaction without bowel obstruction and patient was disimpacted manually. Thought to be 2/[address] Renteria. Discharged home with recommendation to use OTC stool softeners and laxatives PRN. States that she has not had any constipation since discharge. Taking OTC laxative on a nightly basis with last BM yesterday morning. Denies hard stool or straining. States that she missed her appointment with DR. Renteria and has not had her Butrans patch for the last week. Needs to call today to schedule f/u. DIABETES MELLITUS: Ms. Brar was last seen 1 year ago. Since our last visit she denies increased frequency of urination, numbness, tingling or pain in extremities, new or unusual visual symptoms, and low sugar/hypoglycemic reactions. Admits to excess thirst. Follows a diabetic diet most of the time. She is compliant with medication(s) and is tolerating med(s) without any side effects. She reports checking her glucose on a three times a day schedule with sugars in the 160-170 range before meals. Did not bring meter with her today, states that it a few days ago. Patient's last HgA1C was Hemoglobin A1C (%) Date Value 11/23/2019 14.4 09/04/2019 14.4 ) Last Ophthalmology exam was within the past 12 months while in rehab. States that there was something wrong with her retina at that time. States that she has a small dark spot in the center of her vision on the right eye. Told she had cataracts as well. Last Podiatry exam was more than 12 months ago. Globus sensation from last OV on 03/24 still present despite treatment with PPI. Denies dysphagia, odynophagia, hematochezia, melena. Past medical history, appointments, medications, allergies reviewed. Previous Medical History PAST MEDICAL HISTORY Diagnosis Date Anemia 03/12/2015 Bipolar 2 disorder (HCC) 05/26/2018 Constipation 03/12/2015 Diabetes mellitus Excessive or frequent menstruation Hyperlipidemia associated with type 2 diabetes mellitus (HCC) 03/12/2015 Hyperparathyroidism, unspecified (HCC) 10/24/2008 Hypothyroidism 03/12/2015 Lumbar degenerative disc disease 03/12/2015 Stopped pain management 6-15 PTSD (post-traumatic stress disorder) 05/26/2018 PUD (peptic ulcer disease) 03/12/2015 Status post cystoscopy, left uretroscopy, laser lithotripsy of stones, w/stent 03/18/2017 Tobacco use disorder 10/10/2008 Has tried to quit in past, some success. Tubular adenoma of colon 04/2014 repeat colonoscopy in 3 years Well controlled type 2 diabetes mellitus with neurological manifestations (HCC) 02/27/2016 Previous Surgical History PAST SURGICAL HISTORY Procedure Laterality Date ABDOMINAL SURGERY HX BREAST LUMPECTOMY HX Left BREAST SURGERY HX SECTION HX COLSC FLX W/RMVL OF TUMOR POLYP LESION SNARE TQ 05/12/2014 2 polyp desc colon-tubular adenomas, repeat scope in 3 years EGD TRANSORAL BIOPSY SINGLE/MULTIPLE 05/12/2014 gastritis/gastric ulcers EGD TRANSORAL BIOPSY SINGLE/MULTIPLE 04/08/2016 INCISE FINGER TENDON SHEATH Right 06/30/2017 Right middle and 5th trigger finger releases INCISE FINGER TENDON SHEATH Left Left index and middle trigger finger releases INCISE FINGER TENDON SHEATH Left 10/10/2020 Left tumb,ring, and small trigger finger releases LAPAROSCOPY W/RMVL ADNEXAL STRUCTURES 11/23/2011 laprascopic BSO for left ov. cyst&adhesions LAPS SURG CHOLECYSTECTOMY W/CHOLANGIOGRAPHY 06/05/2014 normal IOC, liver/diaphragm adhesions NEUROPLASTY &/TRANSPOS MEDIAN NRV CARPAL TUNNE Left 06/11/2015 Carpal tunnel decomp NEUROPLASTY &/TRANSPOS MEDIAN NRV CARPAL TUNNE Right 07/19/2015 Carpal tunnel decomp PAST SURGICAL HISTORY OF left wrist lump, removal of ganlion cyst PAST SURGICAL HISTORY OF partial parathyroidectomy PAST SURGICAL HISTORY OF 10/2015 kidney stone surgery with stent PAST SURGICAL HISTORY OF 06/2019 Steroid/epidural injection lumbar S NOVASURE ablation SUPRACERVICAL ABDL HYSTER W/WO RMVL TUBE OVARY 2008 ovaries remain VAGINAL HYSTERECTOMY Family History FAMILY HISTORY Problem Relation Age of Onset Diabetes Mother CHF, DM eye disease Hypertension Mother other (renal failure) Mother other (unknown) Father Cancer Maternal Grandmother Cancer Paternal Grandmother Cancer Maternal Aunt Lung Cancer Cancer Paternal Aunt Renal Cancer Patient Allergies ALLERGIES Allergen Reactions Celebrex [Celecoxib] Rash Ciprofloxacin Swelling Codeine Hives, Itching Ibuprofen Hives Metformin Intolerance GI UPSET Naproxyn [Naproxen] Hives Penicillins Hives Toradol [Ketorolac] GI Upset Ultram [Tramadol Hc* facial/ throat swelling Current Medications Current Outpatient Medications on File Prior to Visit Medication Sig atorvastatin (LIPITOR) 40 mg tablet Take 40 mg by mouth once daily. insulin glargine (LANTUS SOLOSTAR U-100 INSULIN) 100 unit/mL (3 mL) Inject 60 Units subcutaneously daily at bedtime. insulin lispro (HUMALOG KWIKPEN INSULIN) 100 unit/mL Inject 15 Units subcutaneously three times daily before meals. dulaglutide (TRULICITY) 3 mg/0.5 mL pen injector Inject 3 mg subcutaneously one time a week. midodrine (PROAMATINE) 10 mg tablet Take 10 mg by mouth twice daily. Take last dose no later than 6 pb or within 4 hours of sleep pantop[address] DR (PROTONIX) 40 mg tablet Take 1 tablet by mouth twice daily. Take on empty stomach, 1/2 hr before meal. levothyroxine (SYNTHROID) 175 mcg tablet Take 1 tablet by mouth once daily. Take on empty stomach. For Thyroid. rizatriptan (MAXALT) 10 mg tablet TAKE 1 TABLET BY MOUTH needed for FOR MIGRAINE headache. May repeat every 2 (TWO) hours as needed for migraine.Max of 3 (THREE) tablets per Blood-Glucose Meter (FREESTYLE LITE METER) monitoring kit Free style lite Insulinx blood sugar diagnostic (BLOOD GLUCOSE TEST) test strip Test blood sugar(s) 3 times daily. Dx: Other DM Code E11.49 Insulin: Yes. Pt uses Freestyle Lite Insulinx Meter blood sugar diagnostic (FREESTYLE INSULINX TEST STRIPS) test strip use to test blood sugar THREE TIMES DAILY Insulin Niles, Disposable, (BD ULTRA-FINE BEN PEN NEEDLE) 32 gauge x 5/32 ndle Use one needle for each dose. four/day. aspirin 81 mg chewable tablet DAILY@0800 Lancets lancets Test blood sugar(s) 3 times daily. Dx: Type 2 DM - Uncontrolled E11.65 Insulin: Yes loperamide HCl (IMODIUM) 2 mg tab Take 2 mg by mouth as needed. mupirocin (BACTROBAN) 2 % ointment Apply to affected area three times daily. atorvastatin (LIPITOR) 80 mg tablet Take 1 tablet by mouth once daily. For cholesterol. (Patient taking differently: Take 40 mg by mouth once daily. For cholesterol.) lidocaine 4 % gel Apply to affected area as needed. insulin glargine (LANTUS SOLOSTAR U-100 INSULIN) 100 unit/mL (3 mL) Inject 42 Units subcutaneously daily at bedtime. insulin lispro (HUMALOG KWIKPEN INSULIN) 100 unit/mL Inject 14 Units subcutaneously w MEALS. cholecalciferol, vitamin D3, 2,000 unit chew Take 1 tablet by mouth once daily. No current facility-administered medications on file prior to visit. Social History Social History Tobacco Use Smoking status: Former Packs/day: 0.50 Types: Cigarettes Start date: 06/25/1977 Quit date: 10/07/2020 Years since quittin.4 Smokeless tobacco: Never Vaping Use Vaping Use: Never used Substance Use Topics Alcohol use: No Drug use: No Review of Symptoms REVIEW OF SYSTEMS GENERAL: No weight loss, malaise or fevers RESPIRATORY: Negative for cough, hemoptysis, wheezing, COPD, dyspnea or shortness of breath CARDIOVASCULAR: Negative for chest pain, leg swelling, hypertension, CHF or palpitations GI: No nausea, vomiting, or diarrhea SKIN: Negative for lesions, rash, and itching EXAM: BP 112/74 Pulse 80 Resp 16 Ht 152.4 cm (5') Wt 81.6 kg (180 lb) LMP 11/27/2008 BMI 35.15 kg/m General Appearance: Well appearing, alert, in no acute distress, well-hydrated, well nourished. Obese. Noted she her steps are tentative getting on and off exam table to prevent falls. Used wheelchair to get back to exam room today. Skin: Skin color, texture, turgor normal, no suspicious rashes or lesions. Eyes: PERRLA, EOMI. Fundoscopic exam grossly normal without dilation. Lungs: Lungs clear to auscultation. No wheezing, rhonchi, rales.. Heart: RRR without murmur, gallop, or rubs. No ectopy. Abdomen: Normal abdominal exam, Abdomen soft, non-tender. Bowel sounds normal. No masses, organomegaly. Extremities: No deformities, edema, skin discoloration, clubbing or cyanosis. Good capillary refill. . Feet: Shoes and socks removed, normal distal pulses, not sensitive to monofilament bilaterally, and nails notable for Crumbly, Deformed, Hypertrophic, or Yellowish Health Maintenance List SHINGRIX VACCINE(1 of 2) Never done MAMMOGRAM due on 01/22/2018 DIABETIC FOOT EXAM due on 06/21/2018 PNEUMOCOCCAL(2 - PCV) due on 07/04/2019 HBA1C due on 02/22/2020 LDL CHOLESTEROL due on 09/18/2020 COLORECTAL CANCER SCREENING due on 10/27/2020 URINE ALBUMIN:CREATININE RATIO due on 12/25/2020 DILATED RETINAL EXAM due on 03/25/2021 COVID-19 VACCINE(4 - Booster for Pfizer series) due on 07/28/2022 DEPRESSION ASSESSMENT Never done INFLUENZA(Season Ended) due on 06/25/2023 ANNUAL PCP TEAM CHRONIC DISEASE VISIT due on 03/24/2024 DTAP,TDAP,TD(2 - Td or Tdap) due on 06/09/2031 HEPATITIS C SCREENING Completed HIV SCREENING Completed PAP TESTING Discontinued HPV TESTING Discontinued ASSESSMENT/PLAN: 1. Generalized weakness - ICD9: 780.79, ICD10: R53.1 (primary diagnosis) Patient states that her symptoms are improved, but still appears to be unsteady on her feet. Refusing home health, PT/OT referral. Will give rx for wheeled walker and have her use daily. Continue home exercises. Red flags for re-assessment reviewed with patient in detail. - WALKER, WHEELED, SEAT - PARKING FOR HANDICAPPED 2. Acute constipation - ICD9: 564.00, ICD10: K59.00 Resolved. Push PO fluids. Increase fiber intake. Continue OTC stool softeners and laxatives PRN. 3. Diabetes mellitus type 2 with neurological manifestations (HCC) - ICD9: 250.60, ICD10: E11.49 - Uncontrolled - Continue current medications - Blood glucose monitoring on a four times daily schedule - Counseled on healthy diet and regular exercise - Discussed need for and benefit of weight loss. BMI 35.15 kg/(m^2) - Discussed diabetic education issues of diabetes complications and monitoring required, hypoglycemic/hyperglycemic symptoms, and medication-specific side effects and monitoring - Follow up in 3 months, sooner should any other issues arise. - CBC + DIFF - COMP METABOLIC PANEL - HGB A1C - LIPID PANEL, NONFASTING - ALBUMIN/CREAT RATIO RND UR - BLOOD-GLUCOSE METER KIT - CONSULT TO OPHTHALMOLOGY 4. Diabetic polyneuropathy associated with type 2 diabetes mellitus (HCC) - ICD9: 250.60, 357.2, ICD10: E11.42 F/u with podiatry for exam and orthotics. Recommended checking feet daily. - CONSULT TO PODIATRY 5. Hyperlipidemia associated with type 2 diabetes mellitus (HCC) - ICD9: 250.80, 272.4, ICD10: E11.69, E78.5 - Control undetermined, due for labs - Continue current medications - Counseled on healthy diet and regular exercise - BLOOD-GLUCOSE METER KIT 6. Change in vision - ICD9: 368.9, ICD10: H53.9 Refer to optho for spot in her vision. Recommended importance of evaluation IRA since this is worsening. Possible detached retina vs macular degeneration vs DM retinopathy vs cataracts. - CONSULT TO OPHTHALMOLOGY 7. Globus sensation - ICD9: 784.99, ICD10: R09.89 F/u with surgery for EGD. Continue PPI. - CONSULT TO GENERAL SURGERY 8. Onychomycosis - ICD9: 110.1, ICD10: B35.1 Start lamisil after LFTs are back. Recheck in 6 weeks. - TERBINAFINE HCL 250 MG TABLET - HEPATIC FUNCTION PNL 9. Acquired hypothyroidism - ICD9: 244.9, ICD10: E03.9 - Instructed patient on importance of taking on an empty stomach either first thing in the morning or at bedtime. - check TSH today - continue current dose of Synthroid 0.175 mg Weight decreasing - Behavioral intervention - TSH BLD 10. Screening for colon cancer - ICD9: V76.51, ICD10: Z12.11 - CONSULT TO GENERAL SURGERY 11. Encounter for immunization - ICD9: V03.89, ICD10: Z23 - PNEUMOCOCCAL VACCINE (PREVNAR 20) 12. Stage 3a chronic kidney disease (HCC) - ICD9: 585.3, ICD10: N18.31 Recheck CMP - Counseled on avoiding NSAIDs, adequate hydration - Counseled on low sodium diet 13. Hyperparathyroidism (HCC) - ICD9: 252.00, ICD10: E21.3 Recheck calcium level. 14. Opioid dependence, continuous (HCC) - ICD9: 304.01, ICD10: F11.20 Opioid prescribed through pain management. Will f/u recommendations. Likely lead to her recent constipation. I spent a total of 40 minutes on the date of the service which included preparing to see the patient, [id number] patient care, completing clinical documentation, obtaining and/or reviewing separately obtained history, performing a medically appropriate examination, counseling and educating the patient/family/caregiver, and ordering medications, tests, or procedures. Dwayne Lopez MD documented in this encounter [facility] 03-31-2023 Note Patient Outreach (IN TMM[facility]) TERRANCE BRAR ([id number]) 1965 F Date Time Provider Department 03/31/23 DWAYNE LOPEZ During your visit today, we recorded the following information about you: Allergies As of Date: 03/31/2023 Noted Allergy Reaction CELEBREX (CELECOXIB) 12/26/2019 2 - Rash CIPROFLOXACIN 10/05/2008 7 - Swelling CODEINE 05/17/2014 4 - Hives 9 - Itching IBUPROFEN 04/08/2007 4 - Hives METFORMIN 06/25/2017 5 - Intolerance Comments: GI UPSET NAPROXYN (NAPROXEN) 04/08/2007 4 - Hives PENICILLINS 04/08/2007 4 - Hives TORADOL (KETOROLAC) 09/28/2019 8 - GI Upset ULTRAM (TRAMADOL HCL) 04/08/2007 Comments: facial/ throat swelling Date Reviewed: 03/24/2023 Reviewed by: Tanika Steiner LPN - Fully Assessed Visit Diagnosis:Encounter for screening mammogram for breast cancer [Z12.31] Order(s):[facility] SCREENING [[id number]] Order #: [id number] FUTURE Prescriptions as of 04/05/2023 - loperamide HCl (IMODIUM A-D) 2 mg tab Take 2 mg by mouth as needed. - midodrine (PROAMATINE) 10 mg tablet Take 10 mg by mouth twice daily. Take last dose no later than 6 pb or within 4 hours of sleep - pantoprazole DR (PROTONIX) 40 mg tablet Take 1 tablet by mouth twice daily. Take on empty stomach, 1/2 hr before meal. - mupirocin (BACTROBAN) 2 % ointment Apply to affected area three times daily. - atorvastatin (LIPITOR) 80 mg tablet Take 1 tablet by mouth once daily. For cholesterol. - levothyroxine (SYNTHROID) 175 mcg tablet Take 1 tablet by mouth once daily. Take on empty stomach. For Thyroid. - lidocaine 4 % gel Apply to affected area as needed. - rizatriptan (MAXALT) 10 mg tablet TAKE 1 TABLET BY MOUTH needed for FOR MIGRAINE headache. May repeat every 2 (TWO) hours as needed for migraine.Max of 3 (THREE) tablets per - insulin glargine (LANTUS SOLOSTAR U-100 INSULIN) 100 unit/mL (3 mL) Inject 42 Units subcutaneously daily at bedtime. - Blood-Glucose Meter (FREESTYLE LITE METER) monitoring kit Free style lite Insulinx - insulin lispro (HUMALOG KWIKPEN INSULIN) 100 unit/mL Inject 14 Units subcutaneously w MEALS. - cholecalciferol, vitamin D3, 2,000 unit chew Take 1 tablet by mouth once daily. - blood sugar diagnostic (BLOOD GLUCOSE TEST) test strip Test blood sugar(s) 3 times daily. Dx: Other DM Code E11.49 Insulin: Yes. Pt uses Freestyle Lite Insulinx Meter - blood sugar diagnostic (FREESTYLE INSULINX TEST STRIPS) test strip use to test blood sugar THREE TIMES DAILY - Insulin Niles, Disposable, (BD ULTRA-FINE BEN PEN NEEDLE) 32 gauge x 5/32 ndle Use one needle for each dose. four/day. - aspirin 81 mg chewable tablet DAILY@0800 - Lancets lancets Test blood sugar(s) 3 times daily. 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] 12/07/2008 Routine [facility] at [facility]*12/10/2008 06/03/2015 Benign neoplasm of colon [D12.6] 05/15/2014 Abdominal pain, epigastric [R10.13] 05/15/2014 06/03/2015 Gastric ulcer [K25.9] 05/15/2014 Abdominal pain, right upper quadrant [R10.11] 06/05/2014 06/03/2015 Lumbar degenerative disc disease [M51.36] 03/12/2015 Constipation [K59.00] 03/12/2015 06/03/2015 Anemia [D64.9] 03/12/2015 02/27/2016 Hypothyroidism [E03.9] 03/12/2015 Hyperlipidemia associated with type 2 diabetes *03/12/2015 Carpal tunnel syndrome, left [G56.02] 05/27/2015 01/27/2017 Carpal tunnel syndrome, right [G56.01] 05/27/2015 01/27/2017 Trigger thumb of left hand [M65.312] 07/23/2015 01/27/2017 Trigger ring finger of right hand [M65.341] 01/28/2016 Diabetes mellitus type 2 with neurological jaciel*03/02/2016 De Quervain's tenosynovitis [M65.4] 04/02/2016 Trigger thumb of right hand [M65.311] 04/02/2016 Blood in the urine [R31.9] 01/22/2017 Trigger middle finger of right hand [M65.331] 06/21/2017 Trigger finger, right little finger [M65.351] 06/21/2017 Trigger finger, right [M65.30] 06/22/2017 Renal stone [N20.0] 01/07/2018 Injury of kidney [S37.009A] 11/21/2018 Class 1 obesity due to excess calories with bod*09/04/2019 Incisional hernia, without obstruction or gangr*09/04/2019 Lumbar radiculopathy [M54.16] 09/18/2019 Hyponatremia [E87.1] 09/18/2019 Eczema [L30.9] 12/26/2019 Breast mass, left [N63.20] 12/26/2019 Breast mass, right [N63.10] 12/26/2019 Vitamin D deficiency [E55.9] 12/26/2019 Encounter Status:Closed by VAN, PRODUSER on 04/05/23 [facility] 03-24-2023 Note HNO ID: [id number] Author: Dwayne Lopez MD Service: ? Author Type: Physician Type: Progress Notes Filed: 03/24/2023 11:44 AM Note Text: Chief Complaint Patient presents with: Establish Care HPI Ashleylindaneil Brar is a 57 year old female who presents here today for Above Complaints. Accompanied today by her Shan. Patient has been a resident of [facility] since 03/2022 and is planning on being discharged tomorrow. States that she was admitted initially for weakness and inability to walk. This was attributed to her uncontrolled DM. Required 11 months of PT. I have not received any records from the long-term as of yet. Patient has paperwork today for her medications, but there are contradictory orders on this. Patient complaining of globus sensation which started about 2 months ago. Associated with heartburn without dysphagia or odynophagia. She has Pantoprazole 40 mg daily on her med list, but is not sure if she is still getting this. Gets Tums about once every 2 weeks, but does not help either. Admits to TTP over neck just above her sternum. Denies neck lump/swelling. Notes history of parathyroid removal. Past medical history, appointments, medications, allergies reviewed. Previous Medical History PAST MEDICAL HISTORY Diagnosis Date Anemia 03/12/2015 Bipolar 2 disorder (HCC) 05/26/2018 Constipation 03/12/2015 Diabetes mellitus Excessive or frequent menstruation Hyperlipidemia associated with type 2 diabetes mellitus (HCC) 03/12/2015 Hyperparathyroidism, unspecified (HCC) 10/24/2008 Hypothyroidism 03/12/2015 Lumbar degenerative disc disease 03/12/2015 Stopped pain management 6- PTSD (post-traumatic stress disorder) 05/26/2018 PUD (peptic ulcer disease) 03/12/2015 Status post cystoscopy, left uretroscopy, laser lithotripsy of stones, w/stent 03/18/2017 Tobacco use disorder 10/10/2008 Has tried to quit in past, some success. Tubular adenoma of colon 04/2014 repeat colonoscopy in 3 years Well controlled type 2 diabetes mellitus with neurological manifestations (HCC) 02/27/2016 Previous Surgical History PAST SURGICAL HISTORY Procedure Laterality Date ABDOMINAL SURGERY HX BREAST LUMPECTOMY HX Left BREAST SURGERY HX SECTION HX COLSC FLX W/RMVL OF TUMOR POLYP LESION SNARE TQ 05/12/2014 2 polyp desc colon-tubular adenomas, repeat scope in 3 years EGD TRANSORAL BIOPSY SINGLE/MULTIPLE 05/12/2014 gastritis/gastric ulcers EGD TRANSORAL BIOPSY SINGLE/MULTIPLE 04/08/2016 INCISE FINGER TENDON SHEATH Right 06/30/2017 Right middle and 5th trigger finger releases INCISE FINGER TENDON SHEATH Left Left index and middle trigger finger releases INCISE FINGER TENDON SHEATH Left 10/10/2020 Left tumb,ring, and small trigger finger releases LAPAROSCOPY W/RMVL ADNEXAL STRUCTURES 11/23/2011 laprascopic BSO for left ov. cystANDadhesions LAPS SURG CHOLECYSTECTOMY W/CHOLANGIOGRAPHY 06/05/2014 normal IOC, liver/diaphragm adhesions NEUROPLASTY AND/TRANSPOS MEDIAN NRV CARPAL TUNNE Left 06/11/2015 Carpal tunnel decomp NEUROPLASTY AND/TRANSPOS MEDIAN NRV CARPAL TUNNE Right 07/19/2015 Carpal tunnel decomp PAST SURGICAL HISTORY OF left wrist lump, removal of ganlion cyst PAST SURGICAL HISTORY OF partial parathyroidectomy PAST SURGICAL HISTORY OF 10/2015 kidney stone surgery with stent PAST SURGICAL HISTORY OF 06/2019 Steroid/epidural injection lumbar S NOVASURE ablation SUPRACERVICAL ABDL HYSTER W/WO RMVL TUBE OVARY 2008 ovaries remain VAGINAL HYSTERECTOMY Family History FAMILY HISTORY Problem Relation Age of Onset Diabetes Mother CHF, DM eye disease Hypertension Mother other (renal failure) Mother other (unknown) Father Cancer Maternal Grandmother Cancer Paternal Grandmother Cancer Maternal Aunt Lung Cancer Cancer Paternal Aunt Renal Cancer Patient Allergies ALLERGIES Allergen Reactions Celebrex [Celecoxib] Rash Ciprofloxacin Swelling Codeine Hives, Itching Ibuprofen Hives Metformin Intolerance GI UPSET Naproxyn [Naproxen] Hives Penicillins Hives Toradol [Ketorolac] GI Upset Ultram [Tramadol Hc* facial/ throat swelling Current Medications Current Outpatient Medications on File Prior to Visit Medication Sig loperamide HCl (IMODIUM A-D) 2 mg tab Take 2 mg by mouth as needed. midodrine (PROAMATINE) 10 mg tablet Take 10 mg by mouth twice daily. Take last dose no later than 6 pb or within 4 hours of sleep atorvastatin (LIPITOR) 80 mg tablet Take 1 tablet by mouth once daily. For cholesterol. (Patient taking differently: Take 40 mg by mouth once daily. For cholesterol.) levothyroxine (SYNTHROID) 175 mcg tablet Take 1 tablet by mouth once daily. Take on empty stomach. For Thyroid. lidocaine 4 % gel Apply to affected area as needed. omeprazole (PRILOSEC) 20 mg capsule take 1 capsule daily 30 minutes before breakfast aspirin 81 mg chewable tablet GABRIELA (more content not included)... [facility] 03-24-2023 History of Present illness Narrative Chief Complaint Patient presents with: Establish Care HPI Susital Brar is a 57 year old female who presents here today for Above Complaints. Accompanied today by her Shan. Patient has been a resident of [facility] since 03/2022 and is planning on being discharged tomorrow. States that she was admitted initially for weakness and inability to walk. This was attributed to her uncontrolled DM. Required 11 months of PT. I have not received any records from the long-term as of yet. Patient has paperwork today for her medications, but there are contradictory orders on this. Patient complaining of globus sensation which started about 2 months ago. Associated with heartburn without dysphagia or odynophagia. She has Pantoprazole 40 mg daily on her med list, but is not sure if she is still getting this. Gets Tums about once every 2 weeks, but does not help either. Admits to TTP over neck just above her sternum. Denies neck lump/swelling. Notes history of parathyroid removal. Past medical history, appointments, medications, allergies reviewed. Previous Medical History PAST MEDICAL HISTORY Diagnosis Date Anemia 03/12/2015 Bipolar 2 disorder (HCC) 05/26/2018 Constipation 03/12/2015 Diabetes mellitus Excessive or frequent menstruation Hyperlipidemia associated with type 2 diabetes mellitus (HCC) 03/12/2015 Hyperparathyroidism, unspecified (HCC) 10/24/2008 Hypothyroidism 03/12/2015 Lumbar degenerative disc disease 03/12/2015 Stopped pain management 6-15 PTSD (post-traumatic stress disorder) 05/26/2018 PUD (peptic ulcer disease) 03/12/2015 Status post cystoscopy, left uretroscopy, laser lithotripsy of stones, w/stent 03/18/2017 Tobacco use disorder 10/10/2008 Has tried to quit in past, some success. Tubular adenoma of colon 04/2014 repeat colonoscopy in 3 years Well controlled type 2 diabetes mellitus with neurological manifestations (HCC) 02/27/2016 Previous Surgical History PAST SURGICAL HISTORY Procedure Laterality Date ABDOMINAL SURGERY HX BREAST LUMPECTOMY HX Left BREAST SURGERY HX SECTION HX COLSC FLX W/RMVL OF TUMOR POLYP LESION SNARE TQ 05/12/2014 2 polyp desc colon-tubular adenomas, repeat scope in 3 years EGD TRANSORAL BIOPSY SINGLE/MULTIPLE 05/12/2014 gastritis/gastric ulcers EGD TRANSORAL BIOPSY SINGLE/MULTIPLE 04/08/2016 INCISE FINGER TENDON SHEATH Right 06/30/2017 Right middle and 5th trigger finger releases INCISE FINGER TENDON SHEATH Left Left index and middle trigger finger releases INCISE FINGER TENDON SHEATH Left 10/10/2020 Left tumb,ring, and small trigger finger releases LAPAROSCOPY W/RMVL ADNEXAL STRUCTURES 11/23/2011 laprascopic BSO for left ov. cyst&adhesions LAPS SURG CHOLECYSTECTOMY W/CHOLANGIOGRAPHY 06/05/2014 normal IOC, liver/diaphragm adhesions NEUROPLASTY &/TRANSPOS MEDIAN NRV CARPAL TUNNE Left 06/11/2015 Carpal tunnel decomp NEUROPLASTY &/TRANSPOS MEDIAN NRV CARPAL TUNNE Right 07/19/2015 Carpal tunnel decomp PAST SURGICAL HISTORY OF left wrist lump, removal of ganlion cyst PAST SURGICAL HISTORY OF partial parathyroidectomy PAST SURGICAL HISTORY OF 10/2015 kidney stone surgery with stent PAST SURGICAL HISTORY OF 06/2019 Steroid/epidural injection lumbar S NOVASURE ablation SUPRACERVICAL ABDL HYSTER W/WO RMVL TUBE OVARY 2008 ovaries remain VAGINAL HYSTERECTOMY Family History FAMILY HISTORY Problem Relation Age of Onset Diabetes Mother CHF, DM eye disease Hypertension Mother other (renal failure) Mother other (unknown) Father Cancer Maternal Grandmother Cancer Paternal Grandmother Cancer Maternal Aunt Lung Cancer Cancer Paternal Aunt Renal Cancer Patient Allergies ALLERGIES Allergen Reactions Celebrex [Celecoxib] Rash Ciprofloxacin Swelling Codeine Hives, Itching Ibuprofen Hives Metformin Intolerance GI UPSET Naproxyn [Naproxen] Hives Penicillins Hives Toradol [Ketorolac] GI Upset Ultram [Tramadol Hc* facial/ throat swelling Current Medications Current Outpatient Medications on File Prior to Visit Medication Sig loperamide HCl (IMODIUM A-D) 2 mg tab Take 2 mg by mouth as needed. midodrine (PROAMATINE) 10 mg tablet Take 10 mg by mouth twice daily. Take last dose no later than 6 pb or within 4 hours of sleep atorvastatin (LIPITOR) 80 mg tablet Take 1 tablet by mouth once daily. For cholesterol. (Patient taking differently: Take 40 mg by mouth once daily. For cholesterol.) levothyroxine (SYNTHROID) 175 mcg tablet Take 1 tablet by mouth once daily. Take on empty stomach. For Thyroid. lidocaine 4 % gel Apply to affected area as needed. omeprazole (PRILOSEC) 20 mg capsule take 1 capsule daily 30 minutes before breakfast aspirin 81 mg chewable tablet DAILY@0800 mupirocin (BACTROBAN) 2 % ointment Apply to affected area three times daily. rizatriptan (MAXALT) 10 mg tablet TAKE 1 TABLET BY MOUTH needed for FOR MIGRAINE headache. May repeat every 2 (TWO) hours as needed for migraine.Max of 3 (THREE) tablets per insulin glargine (LANTUS SOLOSTAR U-100 INSULIN) 100 unit/mL (3 mL) Inject 42 Units subcutaneously daily at bedtime. Blood-Glucose Meter (FREESTYLE LITE METER) monitoring kit Free style lite Insulinx insulin lispro (HUMALOG KWIKPEN INSULIN) 100 unit/mL Inject 14 Units subcutaneously w MEALS. cholecalciferol, vitamin D3, 2,000 unit chew Take 1 tablet by mouth once daily. blood sugar diagnostic (BLOOD GLUCOSE TEST) test strip Test blood sugar(s) 3 times daily. Dx: Other DM Code E11.49 Insulin: Yes. Pt uses Freestyle Lite Insulinx Meter blood sugar diagnostic (FREESTYLE INSULINX TEST STRIPS) test strip use to test blood sugar THREE TIMES DAILY Insulin Niles, Disposable, (BD ULTRA-FINE BEN PEN NEEDLE) 32 gauge x 5/32 ndle Use one needle for each dose. four/day. Lancets lancets Test blood sugar(s) 3 times daily. Dx: Type 2 DM - Uncontrolled E11.65 Insulin: Yes No current facility-administered medications on file prior to visit. Social History Social History Tobacco Use Smoking status: Former Packs/day: 0.50 Types: Cigarettes Start date: 06/25/1977 Quit date: 10/07/2020 Years since quittin.4 Smokeless tobacco: Never Vaping Use Vaping Use: Never used Substance Use Topics Alcohol use: No Drug use: No Review of Symptoms REVIEW OF SYSTEMS GENERAL: No weight loss, malaise or fevers RESPIRATORY: Negative for cough, hemoptysis, wheezing, COPD, dyspnea or shortness of breath CARDIOVASCULAR: Negative for chest pain, leg swelling, hypertension, CHF or palpitations GI: No vomiting, or diarrhea EXAM: BP 110/64 (BP Site: Right Arm, BP Position: Sitting, BP Cuff Size: Large Adult) Pulse 84 Resp 16 Wt 83.9 kg (185 lb) LMP 11/27/2008 BMI 33.84 kg/m General Appearance: Well appearing, alert, in no acute distress, well-hydrated, well nourished.. Skin: Skin color, texture, turgor normal, no suspicious rashes or lesions. Oropharynx: normal teeth/gums, no oropharyngeal erythema or drainage. Neck: Supple, no adenopathy; thyroid symmetric, normal size, no bruits. Lungs: Lungs clear to auscultation. No wheezing, rhonchi, rales.. Heart: RRR without murmur, gallop, or rubs. No ectopy. Health Maintenance List SHINGRIX VACCINE(1 of 2) Never done MAMMOGRAM due on 01/22/2018 DIABETIC FOOT EXAM due on 06/21/2018 PNEUMOCOCCAL(2 - PCV) due on 07/04/2019 HBA1C due on 02/22/2020 LDL CHOLESTEROL due on 09/18/2020 COLORECTAL CANCER SCREENING due on 10/27/2020 URINE ALBUMIN:CREATININE RATIO due on 12/25/2020 ANNUAL PCP TEAM CHRONIC DISEASE VISIT due on 01/24/2021 DILATED RETINAL EXAM due on 03/25/2021 COVID-19 VACCINE(4 - Booster for Pfizer series) due on 07/28/2022 DEPRESSION ASSESSMENT Never done INFLUENZA(Season Ended) due on 06/25/2023 DTAP,TDAP,TD(2 - Td or Tdap) due on 06/09/2031 HEPATITIS C SCREENING Completed HIV SCREENING Completed PAP TESTING Discontinued HPV TESTING Discontinued ASSESSMENT/PLAN: 1. Globus sensation - ICD9: 784.99, ICD10: R09.89 (primary diagnosis) Suspect 2/2 uncontrolled GERD. Increase PPI to BID and will recheck at establish care visit in 2 weeks. - PANTOPRAZOLE 40 MG TABLET,DELAYED RELEASE - PANTOPRAZOLE 40 MG TABLET,DELAYED RELEASE 2. Gastroesophageal reflux disease, unspecified whether esophagitis present - ICD9: 530.81, ICD10: K21.9 - Discussed lifestyle modifications including losing weight, limiting caffeine, and no meals three hours before sleep - Begin treatment with Protonix 40 mg BID - PANTOPRAZOLE 40 MG TABLET,DELAYED RELEASE - PANTOPRAZOLE 40 MG TABLET,DELAYED RELEASE Return in 2 weeks for establish care visit. Will request discharge records from long-term along with labs obtained 1-2 weeks ago. Dwayne Lopez MD documented in this encounter [facility] 03-16-2023 Note HNO ID: [id number] Author: Sharonda Sanchez Service: ? Author Type: ? Type: Progress Notes Filed: 03/16/2023 12:49 PM Note Text: Terrance Brar is identified through a medication adherence outreach initiative based on pharmacy claims data from [employer] (insurer) for Non-insulin DM medication(s) and Statin medication(s). Patient is reviewed 03/16/23 due to medication adherence concerns with the following medications (name, strength, sig): Atorvastatin 40mg every day, Trulicity 3/0.5ml once weekly . Per data/report, last fill date and days supply: Trulicity due 03/18, Per reconcile dispense, last fill date and days supply: 01/22/23 for 30 ds, 02/18/23 Trulicity for 28 ds Per call to pharmacy, last picked up date and days supply: n/a Contacted patient: No answer; left generic VM Outcome of review/outreach: (choose outcome source and status) - Call patient and had to leave an BubbleGab [facility] 03-16-2023 Note Patient Outreach ( PO) TERRANCE BRAR ([id number]) 1965 F Date Time Provider Department 03/16/23 NO PCP PHPOHE During your visit today, we recorded the following information about you: Sharonda Sanchez 03/16/2023 12:49 PM Signed Terrance Brar is identified through a medication adherence outreach initiative based on pharmacy claims data from [employer] (insurer) for Non-insulin DM medication(s) and Statin medication(s). Patient is reviewed 03/16/23 due to medication adherence concerns with the following medications (name, strength, sig): Atorvastatin 40mg every day, Trulicity 3/0.5ml once weekly . Per data/report, last fill date and days supply: Trulicity due 03/18, Per reconcile dispense, last fill date and days supply: 01/22/23 for 30 ds, 02/18/23 Trulicity for 28 ds Per call to pharmacy, last picked up date and days supply: n/a Contacted patient: No answer; left generic VM Outcome of review/outreach: (choose outcome source and status) - Call patient and had to leave an VM BubbleGab Allergies As of Date: 03/16/2023 Noted Allergy Reaction CELEBREX (CELECOXIB) 12/26/2019 2 - Rash CIPROFLOXACIN 10/05/2008 7 - Swelling CODEINE 05/17/2014 4 - Hives 9 - Itching IBUPROFEN 04/08/2007 4 - Hives METFORMIN 06/25/2017 5 - Intolerance Comments: GI UPSET NAPROXYN (NAPROXEN) 04/08/2007 4 - Hives PENICILLINS 04/08/2007 4 - Hives TORADOL (KETOROLAC) 09/28/2019 8 - GI Upset ULTRAM (TRAMADOL HCL) 04/08/2007 Comments: facial/ throat swelling Date Reviewed: 10/31/2021 Reviewed by: Neeru Franco LPN - Fully Assessed Reason for Visit: Allied Health Visit [5] Cmt: Medication Adherence Outreach Prescriptions as of 03/16/2023 - mupirocin (BACTROBAN) 2 % ointment Apply to affected area three times daily. - atorvastatin (LIPITOR) 80 mg tablet Take 1 tablet by mouth once daily. For cholesterol. - levothyroxine (SYNTHROID) 175 mcg tablet Take 1 tablet by mouth once daily. Take on empty stomach. For Thyroid. - lidocaine 4 % gel Apply to affected area as needed. - omeprazole (PRILOSEC) 20 mg capsule take 1 capsule daily 30 minutes before breakfast - rizatriptan (MAXALT) 10 mg tablet TAKE 1 TABLET BY MOUTH needed for FOR MIGRAINE headache. May repeat every 2 (TWO) hours as needed for migraine.Max of 3 (THREE) tablets per - insulin glargine (LANTUS SOLOSTAR U-100 INSULIN) 100 unit/mL (3 mL) Inject 42 Units subcutaneously daily at bedtime. - Blood-Glucose Meter (FREESTYLE LITE METER) monitoring kit Free style lite Insulinx - insulin lispro (HUMALOG KWIKPEN INSULIN) 100 unit/mL Inject 14 Units subcutaneously w MEALS. - cholecalciferol, vitamin D3, 2,000 unit chew Take 1 tablet by mouth once daily. - blood sugar diagnostic (BLOOD GLUCOSE TEST) test strip Test blood sugar(s) 3 times daily. Dx: Other DM Code E11.49 Insulin: Yes. Pt uses Freestyle Lite Insulinx Meter - blood sugar diagnostic (FREESTYLE INSULINX TEST STRIPS) test strip use to test blood sugar THREE TIMES DAILY - Insulin Niles, Disposable, (BD Tango Card-FINE BEN PEN NEEDLE) 32 gauge x 5/32 ndle Use one needle for each dose. four/day. - aspirin (ASPIRIN CHILDRENS) 81 mg chewable tablet DAILY@0800 - Lancets lancets Test blood sugar(s) 3 times daily. 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] 12/07/2008 Routine General Medical Examination at [facility]*12/10/2008 06/03/2015 Benign neoplasm of colon [D12.6] 05/15/2014 Abdominal pain, epigastric [R10.13] 05/15/2014 06/03/2015 Gastric ulcer [K25.9] 05/15/2014 Abdominal pain, right upper quadrant [R10.11] 06/05/2014 06/03/2015 Lumbar degenerative disc disease [M51.36] 03/12/2015 Constipation [K59.00] 03/12/2015 06/03/2015 Anemia [D64.9] 03/12/2015 02/27/2016 Hypothyroidism [E03.9] 03/12/2015 Hyperlipidemia associated with type 2 diabetes *03/12/2015 Carpal tunnel syndrome, left [G56.02] 05/27/2015 01/27/2017 Carpal tunnel syndrome, right [G56.01] 05/27/2015 01/27/2017 Trigger thumb of left hand [M65.312] 07/23/2015 01/27/2017 Trigger ring finger of right hand [M65.341] 01/28/2016 Diabetes mellitus type 2 with neurological jaciel*03/02/2016 De Quervain's tenosynovitis [M65.4] 04/02/2016 Trigger thumb of right hand [M65.311] 04/02/2016 Blood in the urine [R31.9] 01/22/2017 Trigger middle finger of right hand [M65.331] 06/21/2017 Trigger finger, right little finger [M65.351] 06/21/2017 Trigger finger, right [M65.30] 06/22/2017 Renal stone [N20.0] (more content not included)... [facility] 02-23-2023 Note HNO ID: [id number] Author: Sharonda Sanchez Service: ? Author Type: ? Type: Progress Notes Filed: 02/23/2023 2:54 PM Note Text: Terrance Brar is identified through a medication adherence outreach initiative based on pharmacy claims data from [employer] (insurer) for Non-insulin DM medication(s) and Statin medication(s). Patient is reviewed 02/23/23 due to medication adherence concerns with the following medications (name, strength, sig): Atorvastatin 40mg every day, Trulicity 3/0.5m/ once weekly . Per data/report, last fill date and days supply: n/a Per reconcile dispense, last fill date and days supply: 01/22/23 Atorvastatin 30 day supply, 02/18/23 Trulicity for 28 day supply Per call to pharmacy, last picked up date and days supply: n/a Contacted patient: No answer; left generic VM Outcome of review/outreach: (choose outcome source and status) - Filled within 7 days of Next fill date per reconcile dispense and per call to patient/caregiver Sharonda Sanchez [facility] History of Present illness Narrative Terrance Brar is identified through a medication adherence outreach initiative based on pharmacy claims data from [employer] (insurer) for Non-insulin DM medication(s) and Statin medication(s). Patient is reviewed 02/23/23 due to medication adherence concerns with the following medications (name, strength, sig): Atorvastatin 40mg every day, Trulicity 3/0.5m/ once weekly . Per data/report, last fill date and days supply: n/a Per reconcile dispense, last fill date and days supply: 01/22/23 Atorvastatin 30 day supply, 02/18/23 Trulicity for 28 day supply Per call to pharmacy, last picked up date and days supply: n/a Contacted patient: No answer; left generic VM Outcome of review/outreach: (choose outcome source and status) - Filled within 7 days of Next fill date per reconcile dispense and per call to patient/caregiver Sharonda Sanchez English Language Learner Teacher documented in this encounter [facility] 02-23-2023 Note Patient Outreach ( POHE) TERRANCE BRAR ([id number]) 1965 F Date Time Provider Department 02/23/23 NO PCP PHPOHE During your visit today, we recorded the following information about you: Sharonda Sanchez 02/23/2023 2:54 PM Signed Terrance Buenrostrones is identified through a medication adherence outreach initiative based on pharmacy claims data from [employer] (insurer) for Non-insulin DM medication(s) and Statin medication(s). Patient is reviewed 02/23/23 due to medication adherence concerns with the following medications (name, strength, sig): Atorvastatin 40mg every day, Trulicity 3/0.5m/ once weekly . Per data/report, last fill date and days supply: n/a Per reconcile dispense, last fill date and days supply: 01/22/23 Atorvastatin 30 day supply, 02/18/23 Trulicity for 28 day supply Per call to pharmacy, last picked up date and days supply: n/a Contacted patient: No answer; left generic VM Outcome of review/outreach: (choose outcome source and status) - Filled within 7 days of Next fill date per reconcile dispense and per call to patient/caregiver Sharonda Sanchez English Language Learner Teacher Allergies As of Date: 02/23/2023 Noted Allergy Reaction CELEBREX (CELECOXIB) 12/26/2019 2 - Rash CIPROFLOXACIN 10/05/2008 7 - Swelling CODEINE 05/17/2014 4 - Hives 9 - Itching IBUPROFEN 04/08/2007 4 - Hives METFORMIN 06/25/2017 5 - Intolerance Comments: GI UPSET NAPROXYN (NAPROXEN) 04/08/2007 4 - Hives PENICILLINS 04/08/2007 4 - Hives TORADOL (KETOROLAC) 09/28/2019 8 - GI Upset ULTRAM (TRAMADOL HCL) 04/08/2007 Comments: facial/ throat swelling Date Reviewed: 10/31/2021 Reviewed by: Neeru Franco LPN - Fully Assessed Reason for Visit: Allied Health Visit [5] Cmt: Medication Adherence Outreach Prescriptions as of 02/23/2023 - mupirocin (BACTROBAN) 2 % ointment Apply to affected area three times daily. - atorvastatin (LIPITOR) 80 mg tablet Take 1 tablet by mouth once daily. For cholesterol. - levothyroxine (SYNTHROID) 175 mcg tablet Take 1 tablet by mouth once daily. Take on empty stomach. For Thyroid. - lidocaine 4 % gel Apply to affected area as needed. - omeprazole (PRILOSEC) 20 mg capsule take 1 capsule daily 30 minutes before breakfast - rizatriptan (MAXALT) 10 mg tablet TAKE 1 TABLET BY MOUTH needed for FOR MIGRAINE headache. May repeat every 2 (TWO) hours as needed for migraine.Max of 3 (THREE) tablets per - insulin glargine (LANTUS SOLOSTAR U-100 INSULIN) 100 unit/mL (3 mL) Inject 42 Units subcutaneously daily at bedtime. - Blood-Glucose Meter (FREESTYLE LITE METER) monitoring kit Free style lite Insulinx - insulin lispro (HUMALOG KWIKPEN INSULIN) 100 unit/mL Inject 14 Units subcutaneously w MEALS. - cholecalciferol, vitamin D3, 2,000 unit chew Take 1 tablet by mouth once daily. - blood sugar diagnostic (BLOOD GLUCOSE TEST) test strip Test blood sugar(s) 3 times daily. Dx: Other DM Code E11.49 Insulin: Yes. Pt uses Freestyle Lite Insulinx Meter - blood sugar diagnostic (FREESTYLE INSULINX TEST STRIPS) test strip use to test blood sugar THREE TIMES DAILY - Insulin Niles, Disposable, (BD ULTRA-FINE BEN PEN NEEDLE) 32 gauge x 5/32 ndle Use one needle for each dose. four/day. - aspirin (ASPIRIN CHILDRENS) 81 mg chewable tablet DAILY@0800 - Lancets lancets Test blood sugar(s) 3 times daily. 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] 12/07/2008 Routine [facility] at [facility]*12/10/2008 06/03/2015 Benign neoplasm of colon [D12.6] 05/15/2014 Abdominal pain, epigastric [R10.13] 05/15/2014 06/03/2015 Gastric ulcer [K25.9] 05/15/2014 Abdominal pain, right upper quadrant [R10.11] 06/05/2014 06/03/2015 Lumbar degenerative disc disease [M51.36] 03/12/2015 Constipation [K59.00] 03/12/2015 06/03/2015 Anemia [D64.9] 03/12/2015 02/27/2016 Hypothyroidism [E03.9] 03/12/2015 Hyperlipidemia associated with type 2 diabetes *03/12/2015 Carpal tunnel syndrome, left [G56.02] 05/27/2015 01/27/2017 Carpal tunnel syndrome, right [G56.01] 05/27/2015 01/27/2017 Trigger thumb of left hand [M65.312] 07/23/2015 01/27/2017 Trigger ring finger of right hand [M65.341] 01/28/2016 Diabetes mellitus type 2 with neurological jaciel*03/02/2016 De Quervain's tenosynovitis [M65.4] 04/02/2016 Trigger thumb of right hand [M65.311] 04/02/2016 Blood in the urine [R31.9] 01/22/2017 Trigger middle finger of right hand [M65.331] 06/21/2017 Trigger finger, right little finger [M65.351] 06/21/2017 Tri (more content not included)... [facility] 01-11-2023 Note HNO ID: [id number] Author: Aquilino Jha Service: ? Author Type: ? Type: Progress Notes Filed: 01/21/2023 9:43 AM Note Text: 01/11/23 attempt 3 - no answer [facility] 01-11-2023 History of Present illness Narrative 01/11/23 attempt 3 - no answer 01/04/23 attempt 2 - no answer LVM Pt chart reviewed as part of population health initiative focused on statin use in patients with diabetes (DM) or cardiovascular disease (CVD). Terrance Brar is identified through data from [employer] (insurer) as a potential candidate for statin therapy with no prescriptions claims processed for a statin medication in this calendar year. Chart Review The following case components were reviewed for current or historic statin use: Confirmed diabetes and or CVD: yes Current/Active med list includes a statin: yes IF YES, Last order date and quantity: N/A Last pharmacy fill date: Per Epic: N/A, Per pharmacy phone call: 05/21/22 - never filled IF NO, reason identified (contraindication, intolerance, exclusion, etc.): N/A ALLERGIES Allergen Reactions Celebrex [Celecoxib] Rash Ciprofloxacin Swelling Codeine Hives, Itching Ibuprofen Hives Metformin Intolerance GI UPSET Naproxyn [Naproxen] Hives Penicillins Hives Toradol [Ketorolac] GI Upset Ultram [Tramadol Hc* facial/ throat swelling PAST MEDICAL HISTORY Diagnosis Date Anemia 03/12/2015 Bipolar 2 disorder (HCC) 05/26/2018 Constipation 03/12/2015 Diabetes mellitus Excessive or frequent menstruation Hyperlipidemia associated with type 2 diabetes mellitus (HCC) 03/12/2015 Hyperparathyroidism, unspecified (HCC) 10/24/2008 Hypothyroidism 03/12/2015 Lumbar degenerative disc disease 03/12/2015 Stopped pain management 6-15 PTSD (post-traumatic stress disorder) 05/26/2018 PUD (peptic ulcer disease) 03/12/2015 Status post cystoscopy, left uretroscopy, laser lithotripsy of stones, w/stent 03/18/2017 Tobacco use disorder 10/10/2008 Has tried to quit in past, some success. Tubular adenoma of colon 04/2014 repeat colonoscopy in 3 years Well controlled type 2 diabetes mellitus with neurological manifestations (HCC) 02/27/2016 Cholesterol, Total (mg/dL) Date Value 12/28/2017 173 Total Cholesterol, Nonfasting (mg/dL) Date Value 09/18/2019 257 HDL Cholesterol (mg/dL) Date Value 12/28/2017 28 HDL Cholesterol, Nonfasting (mg/dL) Date Value 09/18/2019 28 LDL Cholesterol (mg/dL) Date Value 12/28/2017 73 LDL Cholesterol, Nonfasting (mg/dL) Date Value 09/18/2019 Unable to calculate due to increased Triglycerides. A Direct LDL Cholesterol measurement will not be performed. If clinically indicated, a fasting Basic Lipid Panel (LIPB) may be ordered. Triglyceride (mg/dL) Date Value 12/28/2017 360 Triglycerides, Nonfasting (mg/dL) Date Value 09/18/2019 636 --------Patient contacted: 01/01/23 attempt 1 - no answer BERRY Jha Approving student documentation and outreach below. Gurjit Syed RPh PharmD BCACP documented in this encounter [facility] 01-04-2023 Note HNO ID: [id number] Author: Aquilino Jha Service: ? Author Type: ? Type: Progress Notes Filed: 01/21/2023 9:43 AM Note Text: 01/04/23 attempt 2 - no answer LVM [facility] 01-01-2023 Note HNO ID: [id number] Author: Aquilino Jha Service: ? Author Type: ? Type: Progress Notes Filed: 01/21/2023 9:43 AM Note Text: Pt chart reviewed as part of population health initiative focused on statin use in patients with diabetes (DM) or cardiovascular disease (CVD). Terrance Brar is identified through data from [employer] (insurer) as a potential candidate for statin therapy with no prescriptions claims processed for a statin medication in this calendar year. Chart Review The following case components were reviewed for current or historic statin use: Confirmed diabetes and or CVD: yes Current/Active med list includes a statin: yes IF YES, Last order date and quantity: N/A Last pharmacy fill date: Per Epic: N/A, Per pharmacy phone call: 05/21/22 - never filled IF NO, reason identified (contraindication, intolerance, exclusion, etc.): N/A ALLERGIES Allergen Reactions Celebrex [Celecoxib] Rash Ciprofloxacin Swelling Codeine Hives, Itching Ibuprofen Hives Metformin Intolerance GI UPSET Naproxyn [Naproxen] Hives Penicillins Hives Toradol [Ketorolac] GI Upset Ultram [Tramadol Hc* facial/ throat swelling PAST MEDICAL HISTORY Diagnosis Date Anemia 03/12/2015 Bipolar 2 disorder (HCC) 05/26/2018 Constipation 03/12/2015 Diabetes mellitus Excessive or frequent menstruation Hyperlipidemia associated with type 2 diabetes mellitus (HCC) 03/12/2015 Hyperparathyroidism, unspecified (HCC) 10/24/2008 Hypothyroidism 03/12/2015 Lumbar degenerative disc disease 03/12/2015 Stopped pain management 6-15 PTSD (post-traumatic stress disorder) 05/26/2018 PUD (peptic ulcer disease) 03/12/2015 Status post cystoscopy, left uretroscopy, laser lithotripsy of stones, w/stent 03/18/2017 Tobacco use disorder 10/10/2008 Has tried to quit in past, some success. Tubular adenoma of colon 04/2014 repeat colonoscopy in 3 years Well controlled type 2 diabetes mellitus with neurological manifestations (HCC) 02/27/2016 Cholesterol, Total (mg/dL) Date Value 12/28/2017 173 Total Cholesterol, Nonfasting (mg/dL) Date Value 09/18/2019 257 HDL Cholesterol (mg/dL) Date Value 12/28/2017 28 HDL Cholesterol, Nonfasting (mg/dL) Date Value 09/18/2019 28 LDL Cholesterol (mg/dL) Date Value 12/28/2017 73 LDL Cholesterol, Nonfasting (mg/dL) Date Value 09/18/2019 Unable to calculate due to increased Triglycerides. A Direct LDL Cholesterol measurement will not be performed. If clinically indicated, a fasting Basic Lipid Panel (LIPB) may be ordered. Triglyceride (mg/dL) Date Value 12/28/2017 360 Triglycerides, Nonfasting (mg/dL) Date Value 09/18/2019 636 ------- -Damari redmond contacted: 01/01/23 attempt 1 - no answer BERRY Jha [facility] 01-01-2023 Note HNO ID: [id number] Author: Gurjit Syed RPh Service: ? Author Type: Pharmacist Type: Progress Notes Filed: 01/21/2023 9:43 AM Note Text: Approving student documentation and outreach below. Gurjit Syed RPh PharmD [facility] 01-01-2023 Note Patient Outreach (PH POTAISHA) TERRANCE BRAR ([id number]) 1965 F Date Time Provider Department 01/01/23 GURJIT SYED During your visit today, we recorded the following information about you: Gurjit Syed RPh 01/21/2023 9:43 AM Signed Approving student documentation and outreach below. Gurjit Syed [facility] PharmD RAMÓN Jha 01/21/2023 9:43 AM Signed Pt chart reviewed as part of population health initiative focused on statin use in patients with diabetes (DM) or cardiovascular disease (CVD). Terrance Brar is identified through data from [employer] (insurer) as a potential candidate for statin therapy with no prescriptions claims processed for a statin medication in this calendar year. Chart Review The following case components were reviewed for current or historic statin use: Confirmed diabetes and or CVD: yes Current/Active med list includes a statin: yes IF YES, Last order date and quantity: N/A Last pharmacy fill date: Per Epic: N/A, Per pharmacy phone call: 05/21/22 - never filled IF NO, reason identified (contraindication, intolerance, exclusion, etc.): N/A ALLERGIES Allergen Reactions Celebrex [Celecoxib] Rash Ciprofloxacin Swelling Codeine Hives, Itching Ibuprofen Hives Metformin Intolerance GI UPSET Naproxyn [Naproxen] Hives Penicillins Hives Toradol [Ketorolac] GI Upset Ultram [Tramadol Hc* facial/ throat swelling PAST MEDICAL HISTORY Diagnosis Date Anemia 03/12/2015 Bipolar 2 disorder (HCC) 05/26/2018 Constipation 03/12/2015 Diabetes mellitus Excessive or frequent menstruation Hyperlipidemia associated with type 2 diabetes mellitus (HCC) 03/12/2015 Hyperparathyroidism, unspecified (HCC) 10/24/2008 Hypothyroidism 03/12/2015 Lumbar degenerative disc disease 03/12/2015 Stopped pain management 6-15 PTSD (post-traumatic stress disorder) 05/26/2018 PUD (peptic ulcer disease) 03/12/2015 Status post cystoscopy, left uretroscopy, laser lithotripsy of stones, w/stent 03/18/2017 Tobacco use disorder 10/10/2008 Has tried to quit in past, some success. Tubular adenoma of colon 04/2014 repeat colonoscopy in 3 years Well controlled type 2 diabetes mellitus with neurological manifestations ([facility]) 02/27/2016 Cholesterol, Total (mg/dL) Date Value 12/28/2017 173 Total Cholesterol, Nonfasting (mg/dL) Date Value 09/18/2019 257 HDL Cholesterol (mg/dL) Date Value 12/28/2017 28 HDL Cholesterol, Nonfasting (mg/dL) Date Value 09/18/2019 28 LDL Cholesterol (mg/dL) Date Value 12/28/2017 73 LDL Cholesterol, Nonfasting (mg/dL) Date Value 09/18/2019 Unable to calculate due to increased Triglycerides. A Direct LDL Cholesterol measurement will not be performed. If clinically indicated, a fasting Basic Lipid Panel (LIPB) may be ordered. Triglyceride (mg/dL) Date Value 12/28/2017 360 Triglycerides, Nonfasting (mg/dL) Date Value 09/18/2019 636 Sandra amayant contacted: 01/01/23 attempt 1 - no answer BERRY Jha 01/21/2023 9:43 AM Signed 01/04/23 attempt 2 - no answer BERRY Jha 01/21/2023 9:43 AM Signed 01/11/23 attempt 3 - no answer Allergies As of Date: 01/01/2023 Noted Allergy Reaction CELEBREX (CELECOXIB) 12/26/2019 2 - Rash CIPROFLOXACIN 10/05/2008 7 - Swelling CODEINE 05/17/2014 4 - Hives 9 - Itching IBUPROFEN 04/08/2007 4 - Hives METFORMIN 06/25/2017 5 - Intolerance Comments: GI UPSET NAPROXYN (NAPROXEN) 04/08/2007 4 - Hives PENICILLINS 04/08/2007 4 - Hives TORADOL (KETOROLAC) 09/28/2019 8 - GI Upset ULTRAM (TRAMADOL HCL) 04/08/2007 Comments: facial/ throat swelling Date Reviewed: 10/31/2021 Reviewed by: Neeru Franco LPN - Fully Assessed Reason for Visit: Medication Update [1676] Cmt: Statin use review Prescriptions as of 01/21/2023 - mupirocin (BACTROBAN) 2 % ointment Apply to affected area three times daily. - atorvastatin (LIPITOR) 80 mg tablet Take 1 tablet by mouth once daily. For cholesterol. - levothyroxine (SYNTHROID) 175 mcg tablet Take 1 tablet by mouth once daily. Take on empty stomach. For Thyroid. - lidocaine 4 % gel Apply to affected area as needed. - omeprazole (PRILOSEC) 20 mg capsule take 1 capsule daily 30 minutes before breakfast - rizatriptan (MAXALT) 10 mg tablet TAKE 1 TABLET BY MOUTH needed for FOR MIGRAINE headache. May repeat every 2 (TWO) hours as needed for migraine.Max of 3 (THREE) tablets per - insulin glargine (LANTUS SOLOSTAR U-100 INSULIN) 100 unit/mL (3 mL) Inject 42 Units subcutaneously daily at bedtime. - Blood-Glucose Meter (FREESTYLE LITE METER) monitoring kit Free style lite Insulinx - insulin lispro (HUMALOG KWIKPEN INSULIN) 100 unit/mL Inject 14 Units subcutaneously w MEALS. (more content not included)... [facility] 04-03-2022 History of Present illness Narrative POPULATION HEALTH NAVIGATION OUTREACH Action/FYI Patient is on [facility] list for below gaps and needs appt to address : E11.49 - Diabetes mellitus type 2 with neurological manifestations (HCC) - [id number] Last Billed 12/26/2019
E11.69 - Hyperlipidemia associated with type 2 diabetes mellitus (HCC) - [id number] Last Billed 12/26/2019
E21.3 - Hyperparathyroidism ([facility]) - [id number] Last Billed 09/18/2019
patient also due for : Well exam- verify PCP MAMMOGRAM HBA1C COLORECTAL CANCER SCREENING URINE ALBUMIN:CREATININE RATIO DILATED RETINAL EXAM Left message for patient to call me back directly to schedule. no mychart Pt identified by name and : NO Outreach Outcome/Action Unable to reach patient: Left message Did you use a PCP flex slot to schedule this appointment? N/A Reason for Outreach HCC or suspected condition Payer: Payor: [employer] AND BLUE [employer] / Plan: [employer] HMO / Product Type: HMO / Care Gap Reviewed:: Annual Wellness visit Breast Cancer screening Colorectal Cancer Screening Diabetic Eye Exam HBA1C Nephropathy (Albumin/Creatinine) Urine Reminder: Reminder note to check Health Maintenance for items below Health Maintenance items due: HEPATITIS B(1 of 3 - Risk 3-dose series) Never done SHINGRIX VACCINE(1 of 2) Never done MAMMOGRAM due on 01/22/2018 DIABETIC FOOT EXAM due on 06/21/2018 DEPRESSION SCREENING due on 06/21/2018 PNEUMOCOCCAL(2 - PCV) due on 07/04/2019 HBA1C due on 02/22/2020 LDL CHOLESTEROL due on 09/18/2020 COLORECTAL CANCER SCREENING due on 10/27/2020 URINE ALBUMIN:CREATININE RATIO due on 12/25/2020 ANNUAL PCP TEAM CHRONIC DISEASE VISIT due on 01/24/2021 DILATED RETINAL EXAM due on 03/25/2021 COVID-19 VACCINE(3 - Booster for Pfizer series) due on 07/21/2021 Message Sent to Practice: No Navigation Signature: Shital Patel MA April 03, 2022 12:55 PM documented in this encounter [facility] documented as of this encounter (statuses as of 04/03/2022) [facility] History of Past illness Narrative* Problem Noted Date Resolved Date Trigger thumb of left hand 07/23/201501/27 Carpal tunnel syndrome, left 05/27/201502/2017 Carpal tunnel syndrome, right 05/27/2015 Constipation 03/12/2015 06/03/2015 Anemia 03/12/2015 02/27/2016 Abdominal pain, right upper quadrant 06/05/2014 06/03/2015 Abdominal pain, epigastric 05/15/201406/03 Routine General Medical Exam ination at a Health Care Facility 12/10/2008 06/03/2015 Overview: HCT 37.6% in 11-02, 37.4% in 12-31, 37% in 03-02, 42% in 07-03 EDMUNDO in 03-[address] Mckeon: no details of surgery as per note from [facility] for [facility] mgmt ED for L ankle sprain on 05-16-09 Depressive disorder, not elsewhere classified 02/27/2016 Overview: Celexa to 40 mg in 01-31: consider referral to Psychology (issues primarily with her kids) Diabetes mellitus type 2, un controlled, without complications 10/05/2008 02/27/2016 Overview: A1C 11% in 10-01 Creat 0.6 in 10-01, 0.7 in 11-02, 0.8 in 12-31, 0.9 in 07-03 Alb/Creat 29 in 10-01 NS for eye appt in 01-31 documented as of this encounter (statuses as of 01/21/2023) [facility] History of Past illness Narrative* Problem Noted Date Resolved Date Trigger thumb of left hand 07/23/201501/27 Carpal tunnel syndrome, left 05/27/201502/2017 Carpal tunnel syndrome, right 05/27/2015 Constipation 03/12/2015 06/03/2015 Anemia 03/12/2015 02/27/2016 Abdominal pain, right upper quadrant 06/05/2014 06/03/2015 Abdominal pain, epigastric 05/15/201406/03 Routine General Medical Exam ination at a Health Care Facility 12/10/2008 06/03/2015 Overview: HCT 37.6% in -, 37.4% in 12-31, 37% in 03-02, 42% in 07-03 EDMUNDO in 03-[address] Mckeon: no details of surgery as per note from [facility] for [facility] mgmt ED for L ankle sprain on 05-16-09 Depressive disorder, not elsewhere classified 02/27/2016 Overview: Celexa to 40 mg in 01-31: consider referral to Psychology (issues primarily with her kids) Diabetes mellitus type 2, un controlled, without complications 10/05/2008 02/27/2016 Overview: A1C 11% in 10-01 Creat 0.6 in 10-01, 0.7 in 11-02, 0.8 in 12-31, 0.9 in 07-03 Alb/Creat 29 in 10-01 NS for eye appt in 01-31 documented as of this encounter (statuses as of 02/24/2023) [facility] History of Past illness Narrative* Problem Noted Date Resolved Date Trigger thumb of left hand 07/23/201501/27 Carpal tunnel syndrome, left 05/27/201502/2017 Carpal tunnel syndrome, right 05/27/2015 Constipation 03/12/2015 06/03/2015 Anemia 03/12/2015 02/27/2016 Abdominal pain, right upper quadrant 06/05/2014 06/03/2015 Abdominal pain, epigastric 05/15/201406/03 Routine General Medical Exam ination at a Health Care Facility 12/10/2008 06/03/2015 Overview: HCT 37.6% in 11-02, 37.4% in 12-31, 37% in 03-02, 42% in 07-03 EDMUNDO in 03-[address] Mckeon: no details of surgery as per note from [facility] for [facility] mgmt ED for L ankle sprain on 05-16-09 Depressive disorder, not elsewhere classified 02/27/2016 Overview: Celexa to 40 mg in 01-31: consider referral to Psychology (issues primarily with her kids) Diabetes mellitus type 2, un controlled, without complications 10/05/2008 02/27/2016 Overview: A1C 11% in 10-01 Creat 0.6 in 10-01, 0.7 in 11-02, 0.8 in 12-31, 0.9 in 07-03 Alb/Creat 29 in 10-01 NS for eye appt in 01-31 documented as of this encounter (statuses as of 03/24/2023) [facility] History of Past illness Narrative* Problem Noted Date Resolved Date Trigger thumb of left hand 07/23/201501/27 Carpal tunnel syndrome, left 05/27/201502/2017 Carpal tunnel syndrome, right 05/27/2015 Constipation 03/12/2015 06/03/2015 Anemia 03/12/2015 02/27/2016 Abdominal pain, right upper quadrant 06/05/2014 06/03/2015 Abdominal pain, epigastric 05/15/201406/03 Routine General Medical Exam ination at a [facility] 12/10/2008 06/03/2015 Overview: HCT 37.6% in 11-02, 37.4% in 12-31, 37% in 03-02, 42% in 07-03 EDMUNDO in 03-[address] Mckeon: no details of surgery as per note from [facility] for [facility] mgmt ED for L ankle sprain on 05-16-09 Depressive disorder, not elsewhere classified 02/27/2016 Overview: Celexa to 40 mg in 01-31: consider referral to Psychology (issues primarily with her kids) Diabetes mellitus type 2, un controlled, without complications 10/05/2008 02/27/2016 Overview: A1C 11% in 10-01 Creat 0.6 in 10-01, 0.7 in 11-02, 0.8 in 12-31, 0.9 in 07-03 Alb/Creat 29 in 10-01 NS for eye appt in 01-31 documented as of this encounter (statuses as of 04/07/2023) [facility] History of Past illness Narrative* Problem Noted Date Resolved Date Trigger thumb of left hand 07/23/201501/27 Carpal tunnel syndrome, left 05/27/201502/2017 Carpal tunnel syndrome, right 05/27/2015 Constipation 03/12/2015 06/03/2015 Anemia 03/12/2015 02/27/2016 Abdominal pain, right upper quadrant 06/05/2014 06/03/2015 Abdominal pain, epigastric 05/15/201406/03 Routine General Medical Exam ination at a Health Care Facility 12/10/2008 06/03/2015 Overview: HCT 37.6% in 11-02, 37.4% in 12-31, 37% in 03-02, 42% in 07-03 EDMUNDO in 03-[address] Mckeon: no details of surgery as per note from [facility] for [facility] mgmt ED for L ankle sprain on 05-16-09 Depressive disorder, not elsewhere classified 02/27/2016 Overview: Celexa to 40 mg in 01-31: consider referral to Psychology (issues primarily with her kids) Diabetes mellitus type 2, un controlled, without complications 10/05/2008 02/27/2016 Overview: A1C 11% in 10-01 Creat 0.6 in 10-01, 0.7 in 11-02, 0.8 in 12-31, 0.9 in 07-03 Alb/Creat 29 in 10-01 NS for eye appt in 01-31 documented as of this encounter (statuses as of 04/08/2023) [facility] History of Past illness Narrative* Problem Noted Date Resolved Date Trigger thumb of left hand 07/23/201501/27 Carpal tunnel syndrome, left 05/27/201502/2017 Carpal tunnel syndrome, right 05/27/2015 Constipation 03/12/2015 06/03/2015 Anemia 03/12/2015 02/27/2016 Abdominal pain, right upper quadrant 06/05/2014 06/03/2015 Abdominal pain, epigastric 05/15/201406/03 Routine General Medical Exam ination at a Health Care Facility 12/10/2008 06/03/2015 Overview: HCT 37.6% in -, 37.4% in 12-31, 37% in 03-02, 42% in 07-03 EDMUNDO in 03-[address] Mckeon: no details of surgery as per note from [facility] for [facility] mgmt ED for L ankle sprain on 05-16-09 Depressive disorder, not elsewhere classified 02/27/2016 Overview: Celexa to 40 mg in 01-31: consider referral to Psychology (issues primarily with her kids) Diabetes mellitus type 2, un controlled, without complications 10/05/2008 02/27/2016 Overview: A1C 11% in 10-01 Creat 0.6 in 10-01, 0.7 in 11-02, 0.8 in 12-31, 0.9 in 07-03 Alb/Creat 29 in 10-01 NS for eye appt in 01-31 documented as of this encounter (statuses as of 04/12/2023) [facility] History of Past illness Narrative* Problem Noted Date Resolved Date Trigger thumb of left hand 07/23/201501/27 Carpal tunnel syndrome, left 05/27/201502/2017 Carpal tunnel syndrome, right 05/27/2015 Constipation 03/12/2015 06/03/2015 Anemia 03/12/2015 02/27/2016 Abdominal pain, right upper quadrant 06/05/2014 06/03/2015 Abdominal pain, epigastric 05/15/201406/03 Routine General Medical Exam ination at a Health Care Facility 12/10/2008 06/03/2015 Overview: HCT 37.6% in 11-02, 37.4% in 12-31, 37% in 03-02, 42% in 07-03 EDMUNDO in 03-[address] Mckeon: no details of surgery as per note from [facility] for [facility] mgmt ED for L ankle sprain on 05-16-09 Depressive disorder, not elsewhere classified 02/27/2016 Overview: Celexa to 40 mg in 01-31: consider referral to Psychology (issues primarily with her kids) Diabetes mellitus type 2, un controlled, without complications 10/05/2008 02/27/2016 Overview: A1C 11% in 10-01 Creat 0.6 in 10-01, 0.7 in 1-09, 0.8 in 12-31, 0.9 in 07-03 Alb/Creat 29 in 10-01 NS for eye appt in 01-31 documented as of this encounter (statuses as of 04/23/2023) [facility] History of Past illness Narrative* Problem Noted Date Diagnosed Date Resolved Date Trigger thumb of left hand 07/23/2015 0 01/27/2017 Carpal tunnel syndrome, left 05/27/2015 01/27/2017 Carpal tunnel syndrome, right 05/27/2015 01/27/2017 Constipation 03/12/2015 06/03/2015 Anemia 03/12/2015 02/27/2016 Abdominal pain, right upper quadrant 06/05/2014 06/03/2015 Abdominal pain, epigastric 05/15/2014 0 06/03/2015 Routine General Medical Exam ination at a Health Care Facility 12/10/2008 06/03/2015 Overview: HCT 37.6% in 11-02, 37.4% in 12-31, 37% in 03-02, 42% in 07-03 EDMUNDO in 03-[address] Mckeon: no details of surgery as per note from [facility] for [facility] mgmt ED for L ankle sprain on 05-16-09 Depressive disorder, not elsewhere classified 10/05/20 08 02/27/2016 Overview: Celexa to 40 mg in 01-31: consider referral to Psychology (issues primarily with her kids) Diabetes mellitus type 2, un controlled, without complications 10/05/2008 02/27/2016 Overview: A1C 11% in 10-01 Creat 0.6 in 10-01, 0.7 in 11-02, 0.8 in 12-31, 0.9 in 07-03 Alb/Creat 29 in 10-01 NS for eye appt in 01-31 documented as of this encounter (statuses as of 05/05/2023) [facility] History of Past illness Narrative* Problem Noted Date Diagnosed Date Resolved Date Trigger thumb of left hand 07/23/2015 0 01/27/2017 Carpal tunnel syndrome, left 05/27/2015 01/27/2017 Carpal tunnel syndrome, right 05/27/2015 01/27/2017 Constipation 03/12/2015 06/03/2015 Anemia 03/12/2015 02/27/2016 Abdominal pain, right upper quadrant 06/05/2014 06/03/2015 Abdominal pain, epigastric 05/15/2014 0 06/03/2015 Routine General Medical Exam ination at a Health Care Facility 12/10/2008 06/03/2015 Overview: HCT 37.6% in 11-02, 37.4% in 12-31, 37% in 03-02, 42% in 07-03 EDMUNDO in 03-[address] Mckeon: no details of surgery as per note from [facility] for [facility] mgmt ED for L ankle sprain on 05-16-09 Depressive disorder, not elsewhere classified 10/05/20 08 02/27/2016 Overview: Celexa to 40 mg in 01-31: consider referral to Psychology (issues primarily with her kids) Diabetes mellitus type 2, un controlled, without complications 10/05/2008 02/27/2016 Overview: A1C 11% in 10-01 Creat 0.6 in 10-01, 0.7 in 11-02, 0.8 in 12-31, 0.9 in 07-03 Alb/Creat 29 in 10-01 NS for eye appt in 01-31 documented as of this encounter (statuses as of 05/20/2023) [facility] History of Past illness Narrative* Problem Noted Date Diagnosed Date Resolved Date Trigger thumb of left hand 07/23/2015 0 01/27/2017 Carpal tunnel syndrome, left 05/27/2015 01/27/2017 Carpal tunnel syndrome, right 05/27/2015 01/27/2017 Constipation 03/12/2015 06/03/2015 Anemia 03/12/2015 02/27/2016 Abdominal pain, right upper quadrant 06/05/2014 06/03/2015 Abdominal pain, epigastric 05/15/2014 0 06/03/2015 Routine General Medical Exam ination at a Health Care Facility 12/10/2008 06/03/2015 Overview: HCT 37.6% in 11-02, 37.4% in 12-31, 37% in 03-02, 42% in 07-03 EDMUNDO in 03-[address] Mckeon: no details of surgery as per note from [facility] for DM mgmt ED for L ankle sprain on 05-16-09 Depressive disorder, not elsewhere classified 10/05/20 08 02/27/2016 Overview: Celexa to 40 mg in 01-31: consider referral to Psychology (issues primarily with her kids) Diabetes mellitus type 2, un controlled, without complications 10/05/2008 02/27/2016 Overview: A1C 11% in 10-01 Creat 0.6 in 10-01, 0.7 in 11-02, 0.8 in 12-31, 0.9 in 07-03 Alb/Creat 29 in 10-01 NS for eye appt in 01-31 documented as of this encounter (statuses as of 05/24/2023) [facility] History of Past illness Narrative* Problem Noted Date Diagnosed Date Resolved Date Trigger thumb of left hand 07/23/2015 0 01/27/2017 Carpal tunnel syndrome, left 05/27/2015 01/27/2017 Carpal tunnel syndrome, right 05/27/2015 01/27/2017 Constipation 03/12/2015 06/03/2015 Anemia 03/12/2015 02/27/2016 Abdominal pain, right upper quadrant 06/05/2014 06/03/2015 Abdominal pain, epigastric 05/15/2014 0 06/03/2015 Routine General Medical Exam ination at a Health Care Facility 12/10/2008 06/03/2015 Overview: HCT 37.6% in 11-02, 37.4% in 12-31, 37% in 03-02, 42% in 07-03 EDMUNDO in 03-[address] Mckeon: no details of surgery as per note from [facility] for DM mgmt ED for L ankle sprain on 05-16-09 Depressive disorder, not elsewhere classified 10/05/20 08 02/27/2016 Overview: Celexa to 40 mg in 01-31: consider referral to Psychology (issues primarily with her kids) Diabetes mellitus type 2, un controlled, without complications 10/05/2008 02/27/2016 Overview: A1C 11% in 10-01 Creat 0.6 in 10-01, 0.7 in 11-02, 0.8 in 12-31, 0.9 in 07-03 Alb/Creat 29 in 10-01 NS for eye appt in 01-31 documented as of this encounter (statuses as of 06/10/2023) [facility] History of Past illness Narrative* Problem Noted Date Diagnosed Date Resolved Date Trigger thumb of left hand 07/23/2015 0 01/27/2017 Carpal tunnel syndrome, left 05/27/2015 01/27/2017 Carpal tunnel syndrome, right 05/27/2015 01/27/2017 Constipation 03/12/2015 06/03/2015 Anemia 03/12/2015 02/27/2016 Abdominal pain, right upper quadrant 06/05/2014 06/03/2015 Abdominal pain, epigastric 05/15/2014 0 06/03/2015 Routine General Medical Exam ination at a Health Care Facility 12/10/2008 06/03/2015 Overview: HCT 37.6% in 11-02, 37.4% in 12-31, 37% in 03-02, 42% in 07-03 EDMUNDO in 03-[address] Mckeon: no details of surgery as per note from [facility] for [facility] ED for L ankle sprain on 05-16-09 Depressive disorder, not elsewhere classified 10/05/20 08 02/27/2016 Overview: Celexa to 40 mg in 01-31: consider referral to Psychology (issues primarily with her kids) Diabetes mellitus type 2, un controlled, without complications 10/05/2008 02/27/2016 Overview: A1C 11% in 10-01 Creat 0.6 in 10-01, 0.7 in 11-02, 0.8 in 12-31, 0.9 in 07-03 Alb/Creat 29 in 10-01 NS for eye appt in 01-31 documented as of this encounter (statuses as of 06/30/2023) [facility] History of Past illness Narrative* Problem Noted Date Diagnosed Date Resolved Date Trigger thumb of left hand 07/23/2015 0 01/27/2017 Carpal tunnel syndrome, left 05/27/2015 01/27/2017 Carpal tunnel syndrome, right 05/27/2015 01/27/2017 Constipation 03/12/2015 06/03/2015 Anemia 03/12/2015 02/27/2016 Abdominal pain, right upper quadrant 06/05/2014 06/03/2015 Abdominal pain, epigastric 05/15/2014 0 06/03/2015 Routine General Medical Exam ination at a Health Care Facility 12/10/2008 06/03/2015 Overview: HCT 37.6% in 11-02, 37.4% in 12-31, 37% in 03-02, 42% in 07-03 EDMUNDO in 03-[address] Mckeon: no details of surgery as per note from [facility] for [facility] ED for L ankle sprain on 05-16-09 Depressive disorder, not elsewhere classified 10/05/20 08 02/27/2016 Overview: Celexa to 40 mg in 01-31: consider referral to Psychology (issues primarily with her kids) Diabetes mellitus type 2, un controlled, without complications 10/05/2008 02/27/2016 Overview: A1C 11% in 10-01 Creat 0.6 in 10-01, 0.7 in 11-02, 0.8 in 12-31, 0.9 in 07-03 Alb/Creat 29 in 10-01 NS for eye appt in 01-31 documented as of this encounter (statuses as of 08/18/2023) [facility] History of Past illness Narrative* Problem Noted Date Diagnosed Date Resolved Date Trigger thumb of left hand 07/23/2015 0 01/27/2017 Carpal tunnel syndrome, left 05/27/2015 01/27/2017 Carpal tunnel syndrome, right 05/27/2015 01/27/2017 Constipation 03/12/2015 06/03/2015 Anemia 03/12/2015 02/27/2016 Abdominal pain, right upper quadrant 06/05/2014 06/03/2015 Abdominal pain, epigastric 05/15/2014 0 06/03/2015 Routine General Medical Exam ination at a Health Care Facility 12/10/2008 06/03/2015 Overview: HCT 37.6% in 11-02, 37.4% in 12-31, 37% in 03-02, 42% in 07-03 EDMUNDO in 03-[address] Mckeon: no details of surgery as per note from [facility] for [facility] ED for L ankle sprain on 05-16-09 Depressive disorder, not elsewhere classified 10/05/20 08 02/27/2016 Overview: Celexa to 40 mg in 01-31: consider referral to Psychology (issues primarily with her kids) Diabetes mellitus type 2, un controlled, without complications 10/05/2008 02/27/2016 Overview: A1C 11% in 10-01 Creat 0.6 in 10-01, 0.7 in 11-02, 0.8 in 12-31, 0.9 in 07-03 Alb/Creat 29 in 10-01 NS for eye appt in 01-31 documented as of this encounter (statuses as of 08/19/2023) [facility] History of Past illness Narrative* Problem Noted Date Diagnosed Date Resolved Date Trigger thumb of left hand 07/23/2015 0 01/27/2017 Carpal tunnel syndrome, left 05/27/2015 01/27/2017 Carpal tunnel syndrome, right 05/27/2015 01/27/2017 Constipation 03/12/2015 06/03/2015 Anemia 03/12/2015 02/27/2016 Abdominal pain, right upper quadrant 06/05/2014 06/03/2015 Abdominal pain, epigastric 05/15/2014 0 06/03/2015 Routine General Medical Exam ination at a Health Care Facility 12/10/2008 06/03/2015 Overview: HCT 37.6% in 11-02, 37.4% in 12-31, 37% in 03-02, 42% in 07-03 EDMUNDO in 03-[address] Mckeon: no details of surgery as per note from [facility] for [facility] ED for L ankle sprain on 05-16-09 Depressive disorder, not elsewhere classified 10/05/20 08 02/27/2016 Overview: Celexa to 40 mg in 01-31: consider referral to Psychology (issues primarily with her kids) Diabetes mellitus type 2, un controlled, without complications 10/05/2008 02/27/2016 Overview: A1C 11% in 10-01 Creat 0.6 in 10-01, 0.7 in 11-02, 0.8 in 12-31, 0.9 in 07-03 Alb/Creat 29 in 10-01 NS for eye appt in 01-31 documented as of this encounter (statuses as of 08/20/2023) [facility] History of Past illness Narrative* Problem Noted Date Diagnosed Date Resolved Date Trigger thumb of left hand 07/23/2015 0 01/27/2017 Carpal tunnel syndrome, left 05/27/2015 01/27/2017 Carpal tunnel syndrome, right 05/27/2015 01/27/2017 Constipation 03/12/2015 06/03/2015 Anemia 03/12/2015 02/27/2016 Abdominal pain, right upper quadrant 06/05/2014 06/03/2015 Abdominal pain, epigastric 05/15/2014 0 06/03/2015 Routine General Medical Exam ination at a Health Care Facility 12/10/2008 06/03/2015 Overview: HCT 37.6% in 11-02, 37.4% in 12-31, 37% in 03-02, 42% in 07-03 EDMUNDO in 03-[address] Mckeon: no details of surgery as per note from [facility] for [facility] mg[facility] ED for L ankle sprain on 05-16-09 Depressive disorder, not elsewhere classified 10/05/20 08 02/27/2016 Overview: Celexa to 40 mg in 01-31: consider referral to Psychology (issues primarily with her kids) Diabetes mellitus type 2, un controlled, without complications 10/05/2008 02/27/2016 Overview: A1C 11% in 10-01 Creat 0.6 in 10-01, 0.7 in 11-02, 0.8 in 12-31, 0.9 in 07-03 Alb/Creat 29 in 10-01 NS for eye appt in 01-31 documented as of this encounter (statuses as of 09/20/2023) [facility] Diagnosis Globus sensation- Primary Gastrointestinal malfunction arising from mental factors Gastroesophageal reflux disease, unspecified whether esophagitis present [facility] this encounter [facility] Diagnosis Generalized weakness- Primary Other malaise and fatigue Acute constipation Unspecified constipation Diabetes mellitus type 2 with neurological manifestations (HCC) Type II or unspecified type diabetes mellitus with neurological manifestations, not stated as uncontrolled Diabetic polyneuropathy associated with type 2 diabetes mellitus (HCC) Hyperlipidemia associated with type 2 diabetes mellitus (HCC) Change in vision Unspecified visual disturbance Globus sensation Gastrointestinal malfunction arising from mental factors Onychomycosis Dermatophytosis of nail Acquired hypothyroidism Unspecified hypothyroidism Screening for colon cancer Special screening for malignant neoplasms, colon Encounter for immunization Need for other specified prophylactic vaccination against single bacterial disease Stage 3a chronic kidney disease (HCC) Hyperparathyroidism (HCC) Hyperparathyroidism, unspecified Opioid dependence, continuous (HCC) Opioid type dependence, continuous [facility] Diagnosis Toothache- Primary Unspecified disorder of the teeth and supporting structures documented in this encounter [facility] Summary Purpose Family History No Family History Records FoundNo Family History Records FoundNo Family History Records FoundNo Family History Records FoundNo Family History Records FoundNo Family History Records Found Advance Directives No Advanced Directives Records FoundDocuments on File Type Date Recorded Patient [employer] Expl anation Advance Directive(s) 10/10/2020 10:19 AM Advance Directive(s) 10/01/2020 10:25 AM Advance Directive(s) 05/20/2020 4:17 PM Advance Directive(s) 05/09/2020 11:51 AM Advance Directive(s) 05/03/2020 11:33 AM Advance Directive(s) 10/12/2019 1:17 PM Advance Directive(s) 06/30/2017 11:57 AM Advance Directive(s) 06/23/2017 8:06 AM Advance Directive(s) 04/08/2016 8:19 AM Advance Directive(s) 03/31/2016 11:25 AM Reason for Referral Specialty Diagnoses / Procedures Referred By Mamta redmond Referred To Contact Podiatry Diagnoses Diabetic polyneuropathy associated with type 2 diabetes mellitus (HCC) Procedures CONSULT TO PODIATRY OFFICE/OUTPATIENT [facility] 60-74 MINUTES Dwayne Lopez MD [address] [place] [address] Referral ID Status Reason Start Date Expiration Date Visits Requested Visits Authorized [id number] Pending Review PCP Requested Referral 04/07/2023 04/06/2024 1 1 Specialty Diagnoses / Procedures Referred By Contac t Referred To Contact General Surgery Diagnoses Globus sensation Screening for colon cancer Procedures CONSULT TO GENERAL SURGERY OFFICE/OUTPATIENT [facility] 60-74 MINUTES Dwayne Lopez MD [address] [place] [address] Referral ID Status Reason Start Date Expiration Date Visits Requested Visits Authorized [id number] Pending Review PCP Requested Referral 04/07/2023 04/06/2024 1 1 Specialty Diagnoses / Procedures Referred By Contac t Referred To Contact Ophthalmology Diagnoses Diabetes mellitus type 2 with neurological manifestations (HCC) Change in vision Procedures CONSULT TO OPHTHALMOLOGY OFFICE/OUTPATIENT [facility] 60-74 MINUTES Dwayne Lopez MD [address] [place] [address] Referral ID Status Reason Start Date Expiration Date Visits Requested Visits Authorized [id number] Pending Review PCP Requested Referral 04/07/2023 04/06/2024 1 1 Additional Source Comments INFORMATION SOURCE (unrecogn ized section and content) DATE CREATED AUTHOR AUTHOR'S ORGANIZ ATION 04/14/2018 [facility] DATE CREATED AUTHOR AUTHOR'S ORGANIZ ATION 10/05/2018 [facility] DATE CREATED AUTHOR AUTHOR'S ORGANIZ ATION 10/19/2019 [facility] DATE CREATED AUTHOR AUTHOR'S ORGANIZ ATION 09/28/2020 [facility] DATE CREATED AUTHOR AUTHOR'S ORGANIZ ATION 11/03/2023 [facility] Source Comments (unrecognize d section and content) In the event this informatio n is protected by the Federal Confidentiality of Alcohol and Drug Abuse Patient Records regulations: The Federal rules restrict any use of the information to criminally investigate or prosecute any alcohol or drug abuse patient.[facility] the event this information is protected by the Federal Confidentiality of Alcohol and Drug Abuse Patient Records regulations: The Federal rules restrict any use of the information to criminally investigate or prosecute any alcohol or drug abuse patient.[facility] the event this information is protected by the Federal Confidentiality of Alcohol and Drug Abuse Patient Records regulations: The Federal rules restrict any use of the information to criminally investigate or prosecute any alcohol or drug abuse patient.[facility] the event this information is protected by the Federal Confidentiality of Alcohol and Drug Abuse Patient Records regulations: The Federal rules restrict any use of the information to criminally investigate or prosecute any alcohol or drug abuse patient.[facility] the event this information is protected by the Federal Confidentiality of Alcohol and Drug Abuse Patient Records regulations: The Federal rules restrict any use of the information to criminally investigate or prosecute any alcohol or drug abuse patient.[facility] Hospital[facility] the event this information is protected by the Federal Confidentiality of Alcohol and Drug Abuse Patient Records regulations: The Federal rules restrict any use of the information to criminally investigate or prosecute any alcohol or drug abuse patient.[facility] Hospital[facility] the event this information is protected by the Federal Confidentiality of Alcohol and Drug Abuse Patient Records regulations: The Federal rules restrict any use of the information to criminally investigate or prosecute any alcohol or drug abuse patient.[facility] the event this information is protected by the Federal Confidentiality of Alcohol and Drug Abuse Patient Records regulations: The Federal rules restrict any use of the information to criminally investigate or prosecute any alcohol or drug abuse patient.[facility] the event this information is protected by the Federal Confidentiality of Alcohol and Drug Abuse Patient Records regulations: The Federal rules restrict any use of the information to criminally investigate or prosecute any alcohol or drug abuse patient.[facility] the event this information is protected by the Federal Confidentiality of Alcohol and Drug Abuse Patient Records regulations: The Federal rules restrict any use of the information to criminally investigate or prosecute any alcohol or drug abuse patient.[facility] the event this information is protected by the Federal Confidentiality of Alcohol and Drug Abuse Patient Records regulations: The Federal rules restrict any use of the information to criminally investigate or prosecute any alcohol or drug abuse patient.[facility] Hospital[facility] the event this information is protected by the Federal Confidentiality of Alcohol and Drug Abuse Patient Records regulations: The Federal rules restrict any use of the information to criminally investigate or prosecute any alcohol or drug abuse patient.[facility] Hospital[facility] the event this information is protected by the Federal Confidentiality of Alcohol and Drug Abuse Patient Records regulations: The Federal rules restrict any use of the information to criminally investigate or prosecute any alcohol or drug abuse patient.[facility] HospitalIn the event this information is protected by the Federal Confidentiality of Alcohol and Drug Abuse Patient Records regulations: The Federal rules restrict any use of the information to criminally investigate or prosecute any alcohol or drug abuse patient.[facility] Hospital[facility] the event this information is protected by the Federal Confidentiality of Alcohol and Drug Abuse Patient Records regulations: The Federal rules restrict any use of the information to criminally investigate or prosecute any alcohol or drug abuse patient.[facility] HospitalIn the event this information is protected by the Federal Confidentiality of Alcohol and Drug Abuse Patient Records regulations: The Federal rules restrict any use of the information to criminally investigate or prosecute any alcohol or drug abuse patient.[facility] Hospital[facility] the event this information is protected by the Federal Confidentiality of Alcohol and Drug Abuse Patient Records regulations: The Federal rules restrict any use of the information to criminally investigate or prosecute any alcohol or drug abuse patient.[facility] Reason for Visit (unrecogniz ed section and content) Reason Onset Date Comments Medication Update 01/01/2023 Statin use rev iew Reason Onset Date Comments Allied Health Visit 02/23/2023 Medication A dherence Outreach Reason Comments Establish Care Reason Comments Appointment Reason Comments SNF d/c follow up Reason Comments Dental Problem Right upper side too th pain x 1 day Reason Onset Date Comments Allied Health Visit 05/20/2023 Medication A dherence Outreach Reason Onset Date Comments Refill Request 05/20/2023 Reason Comments Constipation Reason Comments Appointment ER follow up visit Reason Onset Date Comments Population Health Navigation Outreach 08/18/2023 [place] care gaps Reason Onset Date Comments Refill Request 08/18/2023 Reason Onset Date Comments Allied Health Visit 08/20/2023 Medication A dherence Outreach Reason Onset Date Comments Allied Health Visit 09/20/2023 Medication A dherence Outreach Care Teams (unrecognized sec tion and content) [employer]box Assembler Relationship Specialty Start Date End Date Dwayne Lopez MD [address] [place], [place] [id number] PCP - General Family Medicine 03/24/23 Switchbox Assembler Relationship Specialty Start Date End Date Dwayne Lopez MD [address] [place], [place] [id number] PCP - General Family Medicine 03/24/23 Switchbox Assembler Relationship Specialty Start Date End Date Dwayne Lopez MD [address] [place] [address] PCP - General Family Medicine 03/24/23 Switchbox Assembler Relationship Specialty Start Date End Date Dwayne Lopez MD [address] [place] [address] PCP - General Family Medicine 03/24/23 Switchbox Assembler Relationship Specialty Start Date End Date Dwayne Lopez MD [address] [place] [address] PCP - General Family Medicine 03/24/23 Switchbox Assembler Relationship Specialty Start Date End Date Dwayne Lopez MD [address] [place] [address] PCP - General Family Medicine 03/24/23 Switchbox Assembler Relationship Specialty Start Date End Date Dwayne Lopez MD [address] [place] [address] PCP - General Family Medicine 03/24/23 Switchbox Assembler Relationship Specialty Start Date End Date Dwayne Lopez MD [address] [place] [address] PCP - General Family Medicine 03/24/23 Switchbox Assembler Relationship Specialty Start Date End Date Dwayne Lopez MD [address] [place] [address] PCP - General Family Medicine 03/24/23 Switchbox Assembler Relationship Specialty Start Date End Date Dwayne Lopez MD [address] [place] [address] PCP - General Family Medicine 5/31/23 Switchbox Assembler Relationship Specialty Start Date End Date Dwayne Lopez MD [address] [place] [address] PCP - General Family Medicine 03/24/23 FOR RECORDS PERTAINING TO PATIENTS WHO ARE OR HAVE BEEN ENROLLED IN A CHEMICAL DEPENDENCY/SUBSTANCEABUSE PROGRAM, SOME INFORMATION MAY BE OMITTED. This clinical summary was aggregated from multiple sources. Caution should be exercised in using it in the provision of clinical care. This summary normalizes information from multiple sources, and as a consequence, information in this document may materially change the coding, format and clinical context of patient data. In addition, data may be omitted in some cases. CLINICAL DECISIONS SHOULD BE BASED ON THE PRIMARY CLINICAL RECORDS. [employer] provides no warranty or guarantee of the accuracy or completeness of information in this document.
[2023-11-19 10:17] LABS: Bacteria 0 SEEN /hpf (None Seen); Mucous, Urine 0 SEEN /hpf (<or=2+)
[2023-11-19 10:21] LABS: Color, Urine Yellow (Yellow); Glucose, Dipstick 1000 mg/dl (Normal); Ketone-Dipstick Negative (Negative); Leukocyte Esterase-Dipstick 100 /ul (Negative); Nitrite-Dipstick Negative (Negative); Occult Blood-Urine 10 /ul (Negative); Protein-Dipstick 30 mg/dl (Negative); Specific Gravity, Urine 1.015 (1.002-1.030); Urine Bilirubin Dipstick Negative (Negative); Urine Clarity Sl. Cloudy (Clear); Urine Urobilinogen Normal (Normal)
[2023-11-19] MEDS: oxyCODONE 5 MG Tablet 10 MG PO (10:23)
[2023-11-19 10:26] VITALS: BP 134/74; PULSE 74; RESP 12; O2SAT 99
[2023-11-19 10:27] VITALS: BP 134/74; PULSE 72; RESP 15; TEMP 36.7; O2SAT 99
[2023-11-19 10:28] LABS: Squamous Epithelial Cells - UA 10-25 SEEN /hpf (5-10); Yeast-Urine 2+ /hpf (None Seen)
[2023-11-19 10:29] LABS: Red Blood Cells-Urine 0-5 SEEN /hpf (0-5); White Blood Cells 10-25 SEEN /hpf (0-5)
[2023-11-19 10:32] LABS: Bedside Glucose 356 mg/dL (74-106)
--- NOTE | 2023-11-19 10:37 | HP.PCM.HOS_ITS ---
HPI - General General Date of Admission: 11/19/23 Date of Service: 11/19/23 Chief Complaint: Generalized weakness HPI Narrative SURI OCONNOR, is a 58 F with multiple comorbidities including diabetes mellitus type 2 hypothyroidism who presents with generalized weakness. Patient symptoms started 4 days prior to her admission. She did have some nausea as well as abdominal discomfort which was later followed by diarrhea. Patient just stopped taking all her home medications. He states that she had just given up. She woke up on the morning of her presentation unable to walk was subsequently brought to the emergency department. Patient was found to be in acute kidney injury with hyperglycemia with glucose initially greater than 500. Was admitted to regular nursing floor for further management ON LICENSE OF [facility] Medical History Carpal tunnel syndrome Chronic back pain CKD (chronic kidney disease) stage 3, GFR 30-59 ml/min Depression Diabetes Difficulty in walking, not elsewhere classified Elevated troponin Essential hypertension Fatigue Former smoker History of left heart catheterization (LHC) (~05/21/22) HTN (hypertension) Hyperlipidemia Hypokalemia Hypothyroidism Intervertebral disc disorder with radiculopathy of lumbar region Kidney stones Migraines Normochromic normocytic anemia Obesity (BMI 35.0-39.9 without comorbidity) Opiate abuse, continuous Orthostatic hypotension Stomach ulcer Thyroid disease Type II diabetes mellitus, uncontrolled Home Medications rizatriptan 10 mg tablet 10 mg PO PRN Migraine Symptoms 12/27/17 [History Last Taken 11/15/23] pen needle,diabetic, disp unit 29 gauge x 1/2 , remover and disposal unit #100 ea 06/23/21 [Rx Last Taken Unknown] atorvastatin 40 mg tablet 40 mg PO QHS #30 tabs 05/21/22 [Rx Last Taken 11/15/23] metoprolol succinate 25 mg tablet,extended release 24 hr 25 mg PO DAILY #30 tabs 05/21/22 [Rx Last Taken 11/15/23] dextrose 40 % oral gel (Glutose-15) 15 g PO Q15M PRN Blood Sugar 06/12/22 [History Last Taken Unknown] levothyroxine 175 mcg capsule 175 mcg PO DAILY 06/12/22 [History Last Taken 11/15/23] pantoprazole 40 mg tablet,delayed release 40 mg PO DAILY 06/12/22 [History Last Taken 11/15/23] ranolazine 500 mg tablet,extended release,12 hr 500 mg PO BID #60 tabs 06/12/22 [Rx Last Taken 11/15/23] midodrine 10 mg tablet 10 mg PO BID 09/09/22 [History Last Taken 11/15/23] mirtazapine 15 mg tablet 7.5 mg PO QHS 09/09/22 [History Last Taken 11/15/23] nitroglycerin 0.4 mg sublingual tablet 0.4 mg sublingual Q5-15M 09/09/22 [History Last Taken Unknown] insulin lispro 100 unit/mL subcutaneous pen 15 unit subcut TID 11/05/22 [History Last Taken 11/15/23] dulaglutide 3 mg/0.5 mL subcutaneous pen injector (Trulicity) 3 mg subcut MO 01/29/23 [History Last Taken Unknown] fenofibrate 50 mg capsule 50 mg PO QHS 01/29/23 [History Last Taken 11/15/23] insulin glargine 100 unit/mL (3 mL) subcutaneous pen (Lantus Solostar U-100 Insulin) 30 unit subcut QHS 01/29/23 [History Last Taken 11/15/23] lorazepam 0.5 mg tablet 0.5 mg PO Q12H anxeity 01/29/23 [History Last Taken 11/15/23] quetiapine 25 mg tablet 37.5 mg PO QHS 01/29/23 [History Last Taken 11/15/23] loperamide 2 mg capsule (Anti-Diarrheal (loperamide)) 2 mg PO Q6H PRN loose stool 11/19/23 [History Last Taken 11/15/23] Allergy/AdvReac Type Severity Reaction Status Date / Time celecoxib [From Celebrex] Allergy Itching Verified 06/10/23 14:56 ciprofloxacin [From Cipro] Allergy Swelling Verified 06/10/23 14:56 ciprofloxacin HCl Allergy Swelling Verified 06/10/23 14:56 [From Cipro] codeine Allergy Hives Verified 06/10/23 14:56 ibuprofen Allergy Hives Verified 06/10/23 14:56 naproxen Allergy Hives Verified 06/10/23 14:56 Penicillins Allergy Hives Verified 06/10/23 14:56 tramadol HCl [From Ultram] Allergy Hives Verified 06/10/23 14:56 ketorolac [From Toradol] AdvReac Swelling Verified 06/10/23 14:56 Family History Other CVA (cerebral vascular accident) Cancer Diabetes Myocardial infarction Surgical History H/O: hysterectomy History of cholecystectomy Hx of section S/P trigger finger release Social History household members: other details: currently living in a NH for therapy for chronic back pain housing: [facility] Smoking Status: Former smoker Tobacco: How many years used: 46 how long ago did patient quit smoking: She quit smoking in August or September of 2021. She started smoking at 14 alcohol intake: never substance use type: other details: has a hx of chronic opioid use ROS ROS Narrative GENERAL: Generalized weakness HEENT: denies headache, sinus congestion, or drainage, dysphagia RESPIRATORY: denies cough, sputum production, shortness of breath, CARDIAC: denies chest pain, palpitations, orthopnea, PND GASTROINTESTINAL: Diarrhea GENITOURINARY: denies dysuria, urgency, frequency, heamaturia EXTREMITY: denies swelling MUSCULOSKELETAL: denies current joint pain or tenderness NEUROLOGIC: denies focal numbness, weakness, tingling HEMATOLOGIC: denies easy bruising and/or hemorrhage INTEGUMENT: denies rashes PSYCHIATRIC: Complains of feeling depressed Vital Signs Vital Signs Vital Signs: 11/19/23 08:20 11/19/23 10:26 11/19/23 10:27 Temperature 96.7 F L Temperature Source Temporal Pulse Rate 97 74 72 Respiratory Rate 16 12 15 Blood Pressure 139/60 H 134/74 H 134/74 H Blood Pressure Mean 86 94 94 Pulse Ox 94 99 99 Oxygen Delivery Method Room Air 11/19/23 10:27 Temperature 98.1 F Temperature Source Oral Pulse Rate 72 Respiratory Rate 15 Blood Pressure 134/74 H Blood Pressure Mean 94 Pulse Ox 99 Oxygen Delivery Method Room Air Weight Weight: 85.8 kg Body Mass Index (BMI) 36.9 Physical Exam Narrative GENERAL: Significantly flat affect HEENT: Atraumatic; normocephalic EYES; Anicteric, Normal Conjunctiva NECK; supple, normal thyroid, RESPIRATORY: Diminished to auscultation CARDIOVASCULAR: Regular S1 S2, GI: soft, normoactive bowel sounds, : No Renal angle tenderness; EXTREMITIES: No edema, no clubbing, MUSCULOSKELETAL: no muscle wasting NEURO: Awake; no lateralizing signs. SKIN: No Rash PSYCH; Flat affect Results Lab / Micro Data 11/19/23 08:24 11/19/23 08:24 Labs: Laboratory Results - last 24 hr 11/19/23 08:24: WBC 11.8 H, RBC 4.58, Hgb 13.7, Hct 40.2, MCV 87.8, MCH 29.9, MCHC 34.1, RDW Std Deviation 43.6, RDW Coeff of Anisa 13.5, Plt Count 306, MPV 10 .9, Immature Gran % (Auto) 0.300, Neut % (Auto) 59.6, Lymph % (Auto) 35.7, Dougherty % (Auto) 3.3, Eos % (Auto) 0.4, Baso % (Auto) 0.7, Absolute Neuts (auto) 7.0, Absolute Lymphs (auto) 4.21, Nucleated RBC % 0, Sodium 127 L, Potassium 3.4 L, Chloride 92 L, Carbon Dioxide 24.0, Anion Gap 11, BUN 16, Creatinine 1.68 H, Estim Creat Clear Calc 34.64, Est GFR (MDRD) Af Amer 40 L, Est GFR (MDRD) Non-Af 33 L, BUN/Creatinine Ratio 9.5 L, Glucose 484 H*, Calcium 9.6, Total Bilirubin 0.60, Direct Bilirubin 0.16, AST 30, ALT 33, Alkaline Phosphatase 73, Total Protein 8.5 H, Albumin 3.9, Globulin 4.6 H, Lipase 39, Acetone Level NEGATIVE 11/19/23 10:11: POC Glucose 356 H 11/19/23 10:14: Urine Color Yellow, Urine Clarity Sl. Cloudy, Urine pH 6.0, Ur Specific [place] 1.015, Urine Protein 30 H, Urine Glucose (UA) 1000 H, Urine Ketones Negative, Urine Occult Blood 10 H, Urine Nitrite Negative, Urine Bilirubin Negative, Urine Urobilinogen Normal, Ur Leukocyte Esterase 100 H, Urine RBC 0-5 SEEN, Urine WBC 10-25 SEEN, Ur Squamous Epith Cells 10-25 SEEN, Urine Bacteria 0 SEEN, Urine Mucus 0 SEEN, Urine Yeast 2+ Assessment & Plan Assessment/Plan (1) Diabetes mellitus with hyperglycemia: PLAN: Plan Patient is a 58-year-old female with history of diabetes mellitus type 2 presenting with progressive generalized weakness with diarrhea 1. Hyperglycemia ? In a patient with diabetes mellitus type 2 who has been noncompliant for the past 4 days. Patient has been admitted to regular nursing floor started on IV fluids. Patient was also started on her long-acting insulin and short acting Premeal insulin in addition to sliding scale insulin 2. Diabetes mellitus type 2 ? Patient presented with hyperglycemia management discussed above 3. Hyponatremia ? Due to combination of patient's hyperglycemia as well as hypovolemic hyponatremia from patient diarrhea. Patient started on IV fluid with subsequent monitoring of electrolytes ordered 4. Acute gastroenteritis ? Ordered for stool studies 5. Acute kidney injury ? Secondary to dehydration from patient gastroenteritis patient started on IV fluid with subsequent monitoring of electrolytes ordered 6. Hypokalemia ? Corrected per protocol repeat labs ordered for monitoring 7. Hypothyroidism ? Secondary to previous thyroidectomy patient is on levothyroxine did continue home dose 8. GERD ? On PPI 9. Dyslipidemia -Patient is on statin therapy, continued at home dose 10. Class II obesity with BMI of 37 ? Complicating care weight loss advised 11. Physical deconditioning - Requested for PT OT eval and social worker delinquency prevention to assist with discharge planning 12. DVT prophylaxis ? SC Lovenox Advance planning; did discuss with the patient and family regarding advanced directives as well as CODE STATUS. Did explain the various scenarios involved ( FULL CODE, DNR CCA, DNR CCA with no intubation, and DNR CC and what each meant) patient elected to remain full code with CPR and intubation if needed. Order was placed. Time spent on discussion 18 minutes. Time spent in the patient's overall evaluation,decision-making process, review of diagnostic data, adjustment of management, discussion with other providers, nursing nursing and ancillary staff involved in patient's care documentation, 75 Minutes Charges/Coding Visit Charges Inpatient E&M: 06867 Init Hosp L3 Procedures Hospitalists Procedures: 86760 Advncd Care Plan addl 30 Min
--- OUTSIDE RECORDS SUMMARY | 2023-11-19 11:29 | XMS RPT_ITS | CCD ---
Author Name Unknown Address [address] [place] [address] Organization [facility] Care Team Providers Care Sustainable Communities Designer Name Role Phone BRUCE CALIXTO Unavailable Unavailable [...] ciprofloxacin; Translations: [CIPROFLOXACIN] Drug Allergy 8 Swelling [facility] Repository (20 sources) codeine; Translations: [CODEINE] Drug Allergy 4 Hives, Itching [facility] Repository (20 sources) ibuprofen; Translations: [IBUPROFEN] Drug Allergy 7 Hives [facility] Repository (19 sources) metFORMIN; Translations: [METFORMIN] Drug Allergy 7 Intolerance [facility] Repository (19 sources) naproxen; Translations: [NAPROXEN] Drug Allergy 7 Hives [facility] Repository (19 sources) Penicillins; Translations: [PENICILLINS] Propensity to adverse reactions (disorder) 7 [facility] (19 sources) traMADol; Translations: [TRAMADOL HCL] Drug Allergy 7 [facility] Repository (1 source) Ciprofloxacin Drug Allergy 7 [facility] Work Phone: (1 source) Ketorolac Drug Allergy itching [facility] Work Phone: (1 source) Naproxen Drug Allergy 0 [facility] swell[facility] Work Phone: (1 source) Penicillin V Drug Allergy hives [facility] Work Phone: (1 source) traMADol Drug Allergy face swells [facility] Work Phone: (18 sources) celecoxib; Translations: [CELECOXIB] Drug Allergy 0 Rash [facility] (18 sources) Ketorolac; Translations: [KETOROLAC] Drug Allergy 9 GI Upset [facility] Work Phone: Medications Current Medications Medication Drug [...] daily as needed for anxiety attacks ALPRAZOLAM [id number] Beth K Angle MA aspirin 81 mg [...] 100 [degF] Vernon Degroot APRN.CNP Work Phone: [facility] 04-23-2023 14:35-0400 Body weight 81.1 kg Vernon Degroot APRN.CNP Work Phone: [facility] 04-23-2023 14:35-0400 Diastolic blood pressure 82 mm[Hg] Vernon Degroot APRN.CNP Work Phone: [facility] 04-23-2023 14:35-0400 Heart rate 94 /min Vernon Degroot APRN.CNP Work Phone: [facility] 04-23-2023 14:35-0400 Respiratory rate 21 /min Vernon Degroot APRN.CNP Work Phone: [facility] 04-23-2023 14:35-0400 SaO2% (BldA) [Mass fraction] 99 % Vernon Zane STRADDLE TRUCK DRIVER.MEASUREMENT PSYCHOLOGIST Work Phone: [facility] 04-23-2023 14:35-0400 Systolic blood pressure 130 mm[Hg] Vernon Degroot APRN.MEASUREMENT PSYCHOLOGIST Work Phone: [facility] 04-07-2023 13:09-0400 Body height 152.4 cm Dwayne Lopez MD Work Phone: [facility] 04-07-2023 13:09-0400 Body weight 81.65 kg Dwayne Lopez MD Work Phone: [facility] 04-07-2023 13:09-0400 Diastolic blood pressure 74 mm[Hg] Dwayne Lopez MD Work Phone: [facility] 04-07-2023 13:09-0400 Heart rate 80 /min Dwayne Lopez MD Work Phone: [facility] 04-07-2023 13:09-0400 Respiratory rate 16 /min Dwayne Lopez MD Work Phone: [facility] 04-07-2023 13:09-0400 Systolic blood pressure 112 mm[Hg] Dwayne Lopez MD Work Phone: [facility] 03-24-2023 10:18-0400 Body weight 83.92 kg Dwayne Lopez MD Work Phone: [facility] 03-24-2023 10:18-0400 Diastolic blood pressure 64 mm[Hg] Dwayne Lopez MD Work Phone: [facility] 03-24-2023 10:18-0400 Heart rate 84 /min Dwayne Lopez MD Work Phone: [facility] 03-24-2023 10:18-0400 Respiratory rate 16 /min Dwayne Lopez MD Work Phone: [facility] 03-24-2023 10:18-0400 Systolic blood pressure 110 mm[Hg] Dwayne Lopez MD Work Phone: [facility] 07-28-2017 17:13-0400 BMI (Body Mass Index) 32.38 kg/m2 Agnelika De La Torre LPN [facility] Work Phone: 07-28-2017 17:13-0400 Body Temperature 98.3 [degF] Angelika De La Torre LPN [facility] Work Phone: 07-28-2017 17:13-0400 BP Diastolic 76 mm[Hg] Angelika De La Torre LPN [facility] Work Phone: 07-28-2017 17:13-0400 BP Systolic 124 mm[Hg] Angelika De La Torre LPN [facility] Work Phone: 07-28-2017 17:13-0400 Height 152.4 cm Angelika De La Torre LPN [facility] Work Phone: 07-28-2017 17:13-0400 Pulse (Heart Rate) 72 /min Angelika De La Torre LPN [facility] Work Phone: 07-28-2017 17:13-0400 Respiratory Rate 15 /min Angelika De La Torre LPN [facility] Work Phone: 07-28-2017 17:13-0400 Weight 75.21 kg Angelika De La Torre LPN [facility] Work Phone: 02-04-2012 09:28-0400 BSA (Body Surface Area) 1.75 m2 Angelika De La Torre LPN [facility] Work Phone: Encounters [...] 08-11-2010 Assay of thyroid stimulating hormone tsh Brenda Arthur MD Start: 03-10-2010 End: 08-11-2010 Blood [...] Detail Author Start: 06-09-2031 Urine microalbumin profile [facility] Start: 04-07-2024 3 comp foot exam completed DIABETIC FOOT EXAM [facility] Start: 04-07-2024 ANNUAL PCP TEAM WELT BUTTER HAND ASHELY DISEASE VISIT ANNUAL PCP TEAM CHRONIC DISEASE VISIT [facility] Start: 04-07-2024 COVID-19 VACCINE (4 - Booster for Pfizer series) COVID-19 VACCINE (4 - Booster for Pfizer series) [facility] Immunizations Immunization Date Immunization Notes Care Provider Fa cility 04-07-2023 pneumococcal (PCV20) vaccine, 20 valent (PREVNAR 20) Dwayne Lopez MD Work Phone: [facility] 04-07-2023 pneumococcal Conjuga te, unspecified formulation Dwayne Lopez MD Work Phone: [facility] Work Phone: 06-09-2021 tetanus toxoid, redu juan c diphtheria toxoid, and acellular pertussis vaccine, adsorbed Shital Jorge [facility] 09-18-2019 influenza, injectabl e, quadrivalent, contains preservative Shital Patel [facility] 09-18-2019 influenza virus vaccine, unspecified formulation Irena Hood [facility] 08-17-2019 influenza, injectabl e, quadrivalent, preservative free Shital Patel MA [facility] 07-04-2018 influenza, injectabl e, quadrivalent, preservative free Shital Patel [facility] 07-04-2018 pneumococcal polysaccharide vaccine, 23 valent Shital Patel [facility] 09-07-2013 influenza, seasonal, injectable, preservative free Shital Patel [facility] 11-23-2012 pneumococcal polysaccharide vaccine, 23 valent Shital Patel [facility] 08-14-2010 influenza, seasonal, injectable Angelika De La Torre LPN [facility] Work Phone: 03-10-2010 influenza, seasonal, injectable; Translations: [Follow Up Appt 2 weeks] Angelika De La Torre LPN [facility] Work Phone: 09-11-2009 novel [id number], preservative-free, injectable Shital Ptael [facility] 10-10-2008 pneumococcal polysaccharide vaccine, 23 valent Shital Patel [facility] 08-25-2008 influenza virus vaccine, unspecified formulation Shital Patel [facility] Work Phone: 04-24-2006 tetanus and diphther ia toxoids, adsorbed, preservative free, for adult use (2 Lf of tetanus toxoid and 2 Lf of diphtheria toxoid) Shital Patel [facility] Work Phone: Payers Date Payer Category Payer Unknown ANTHEM BLUE CROS S AND BLUE SHIELD ANTHEM MEDIBLUE O [id number] 2022-[facility] [phone] [address] [place] [address] O [id number] 2022 Unknown ANTHEM BLUE CROS S AND BLUE SHIELD ANTHEM MEDIBLUE O [id number] 2022-Present [phone] [address] [place] [address] O [id number] 2022 Unknown [id number] 2014 Medicaid [id number] Unknown [id number] Unknown [id number] Unknown [id number] Unknown [id number] Unknown [id number] Social History Date Type Detail Facility Start: 10-21-2020 End: 03-24-2023 Tobacco smoking status NHIS Ex-smoker [facility] Start: 06-25-1977 End: 10-07-2020 History of tobacco use Current smoker [facility] Start: 06-25-1977 End: 10-07-2020 History of tobacco use Cigarette Smoker [facility] Start: 10-21-2020 End: 11-19-2022 Cigarettes smoked current (pack per day) - Reported 0.5 [facility] Start: 10-21-2020 End: 03-24-2023 Tobacco use and exposure Smokeless tobacco non-user [facility] Start: 10-31-2021 End: 08-10-2023 Alcohol intake Current non-drinker of alcohol (finding) [facility] Start: 05-27-2015 History SDOH Alcohol Comment Seldom- twice yearly [facility] Start: 1965 Sex Assigned At Not on file [facility] Start: 11-19-2022 End: 04-23-2023 Tobacco use panel [facility] National Score (1-10 0), lower number is lower risk 70 [facility] Medical Equipment Procedure Code Equipment Code Equipment Origin al Text Equipment Identifier Dates TEST STRIPS TEST STRIPS [id number] Start: 08-14-2010 LANCET LANCET [id number] Start: 08-14-2010 INSULIN PEN NEEDLE [id number] Start: 08-14-2010 Goals Date Patient Goal Desired Activity /State Personal health goal Clinical Notes 07-23-2015 to 11-02-2023 Ariadna Kyle - 09/20/2023 8:48 AM Sharonda Delong - 08/20/2023 4:22 PM EDTTelephone Encounter - Mary Ellen Karimi LPN - 08/18/2023 4:53 PM EDTIrena Hood PSS - 08/18/2023 7:58 AM EDT Note Date & Type Note Facility 11-02-2023 Note Patient Outreach (NE TNAV) TERRANCE BRAR ([id number]) 1965 F Date Time Provider Department 11/02/23 [...] HCC or suspected condition Payer: Payor: [employer] AND [employer] / Plan: [employer]VANT[employer] HMO / [...] Population Health Navigation Outreach [3910] Cmt: Vinh [facility] Prescriptions as of 11/02/2023 - dulaglutide (TRULICITY) [...] blood sugar THREE TIMES DAILY - Insulin [place], Disposable, (BD ULTRA-FINE BEN PEN NEEDLE) 32 [...] [E04.1] 12/07/2008 Routine General Medical Examination at [facility]*12/10/2008 06/03/2015 Benign neoplasm of colon [D12.6] 05/15/2014 Abdominal pain, epigastric [R10.13] 05/15/2014 06/03/2015 Gastric ulcer [K25.9] 05/15/2014 Abdominal pain, right upper quadrant [R10.11] 06/05/2014 06/03/2015 Lumbar degen (more content not included)... [facility] 11-02-2023 Note HNO ID: [id number] Author: MARLEE CAREY MA Service: ? Author Type: Propellant Charge Zone Assembler Type: Progress Notes Filed: 11/02/2023 09:16 Note Text: POPULATION HEALTH NAVIGATION OUTREACH Action/I November 02, 2023 [place] [facility] Care Gaps/Scheduling needs Annual Wellness Exam Dilated Eye Exam A1c Urine Albumin Mammogram CRCS Flu shot Outcome/Action Lm on Vm Marlee Carey MA Patient Identified by Name and : NO Outreach Outcome/Action Unable to reach patient: Left message Did you use a PCP flex slot to schedule this appointment? N/A Reason for Outreach HCC or suspected condition Payer: Payor: [employer] AND [employer] / Plan: [employer] MEDICARE ADVANTAGE HMO / [...] Carey MA November 02, 2023 9:04 AM [facility] 10-13-2023 Note Patient Outreach (PH MEWO) TERRANCE BRAR ([id number]) 1965 F Date Time Provider Department 10/13/23 [...] Video Primary New visit types. Elizabeth Seniorvirgil [facility] Allergies As of Date: 10/13/2023 Noted Allergy [...] 2 diabetes (HCC) [E11.9] Order(s):CONSULT TO PHARMACY [[id number]] Order #: [id number]: 1 Prescriptions as of 10/13/2023 - dulaglutide [...] blood sugar THREE TIMES DAILY - Insulin [place], Disposable, (BD ULTRA-FINE BEN PEN NEEDLE) 32 [...] [E04.1] 12/07/2008 Routine General Medical Examination at [facility]*12/10/2008 06/03/2015 Benign neoplasm of colon [D12.6] [...] obstruction or gangr*09/04/2019 (more content not included)... [facility] 10-13-2023 Note HNO ID: [id number] Author: Elizabeth Jennings RPh Service: ? Author [...] Primary New visit types. Elizabeth Jennings RPh [facility] 09-20-2023 Note Patient Outreach ( PO) TERRANCE BRAR ([id number]) 1965 F Date Time Provider Department 09/20/23 DWAYNE LOPEZ During your visit today, we recorded the following information about you: Ariadna Kyle 09/20/2023 8:52 AM Signed Terrance Brar is identified through a medication adherence outreach initiative based on pharmacy claims data from [employer] (insurer) for Statin medication(s). Patient is reviewed [...] blood sugar THREE TIMES DAILY - Insulin [place], Disposable, (BD ULTRA-FINE BEN PEN NEEDLE) 32 [...] [E04.1] 12/07/2008 Routine General Medical Examination at [facility]*12/10/2008 06/03/2015 Benign neoplasm of colon [D12.6] [...] finger, right [M65 (more content not included)... [facility] 09-20-2023 Note HNO ID: [id number] Author: Ariadna Kyle Service: ? Author Type: ? Type: Progress Notes Filed: 09/20/2023 8:52 AM Note Text: Terrance Brar is identified through a medication adherence outreach initiative based on pharmacy claims data from [employer] (insurer) for Statin medication(s). Patient is reviewed 09/20/23 due to medication adherence concerns with the following medications (name, strength, sig): atorvastatin 40mg, take 1 tablet daily. Per data/report, last fill date and days supply: due 09/20/23 Per reconcile dispense, last fill date and days supply: filled 08/19/23 (reversed) Outcome of review/outreach: (choose outcome source and status) -2nd attempt Left message Ariadna Kyle [facility] 09-20-2023 History of Present illness Narrative Terrance Brar is identified through a medication adherence outreach initiative based on pharmacy claims data from [employer] (insurer) for Statin medication(s). Patient is reviewed [...] message Ariadna Kyle documented in this encounter [facility] 08-20-2023 Note HNO ID: [id number] Author: Sharonda Sanchez Service: ? Author Type: ? Type: Progress Notes Filed: 08/20/2023 4:30 PM Note Text: Terrance Brar is identified through a medication adherence outreach initiative based on pharmacy claims data from [employer] (insurer) for Non-insulin DM medication(s) and Statin [...] Both were out of refill [facility]onda [facility] History of Present illness Narrative Terrance Brar is identified through a medication adherence outreach initiative based on pharmacy claims data from [employer] (insurer) for Non-insulin DM medication(s) and Statin [...] Both were out of refill Sharonda Sanchez Law Firm Consultant documented in this encounter [facility] 08-20-2023 Note Patient Outreach ([facility]) TERRANCE BRAR ([id number]) 1965 F Date Time Provider Department 08/20/23 [facility] During your visit today, we recorded the following information about you: Sharonda Sanchez 08/20/2023 4:30 PM Signed Terrance Brar is identified through a medication adherence outreach initiative based on pharmacy claims data from [employer] (insurer) for Non-insulin DM medication(s) and Statin [...] reconcile dispense Both were out of refill [facility] Law [employer] Consultant Allergies As of Date: 08/20/2023 Noted Allergy [...] blood sugar THREE TIMES DAILY - Insulin [place], Disposable, (BD ULTRA-FINE BEN PEN NEEDLE) 32 [...] [E04.1] 12/07/2008 Routine General Medical Examination at [facility]*12/10/2008 06/03/2015 Benign neoplasm of colon [D12.6] [...] 2 with neuro (more content not included)... [facility] 08-18-2023 Miscellaneous Notes Spoke with pt and [...] Department Center 08/26/2023 1:40 PM 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 APRN.DEYANIRA [facility] Please review and refill if appropriate. Thank you. Sharonda Sanchez August 18, 2023 4:11 PM documented in this encounter [facility] 08-18-2023 Note Patient Outreach (NE TNAV) TERRANCE BRAR ([id number]) 1965 F Date Time Provider Department 08/18/23 [...] Care Gap or Scheduling/Wellness visits Payer: Payor: [employer] / Plan: [employer] HMO / Product Type: HMO / Care [...] blood sugar THREE TIMES DAILY - Insulin [place], Disposable, (BD ULTRA-FINE BEN PEN NEEDLE) 32 [...] [E04.1] 12/07/2008 Routine General Medical Examination at [facility]*12/10/2008 06/03/2015 Benign neoplasm of colon [D12.6] 05/15/2014 Abdominal pain, epigastric [R10.13] 05/15/2014 06/03/2015 Gastric (more content not included)... [facility] 08-18-2023 Note HNO ID: [id number] Author: Irena Hood PSS Service: ? Author [...] Care Gap or Scheduling/Wellness visits Payer: Payor: [employer] AND [employer] / Plan: [employer] HMO / Product Type: HMO / Care [...] AMY Jeff August 18, 2023 7:58 AM [facility] 08-18-2023 History of Present illness Narrative POPULATION [...] Care Gap or Scheduling/Wellness visits Payer: Payor: [employer] AND [employer] / Plan: [employer] HMO / Product Type: HMO / Care [...] 2023 7:58 AM documented in this encounter [facility] 08-10-2023 Note HNO ID: [id number] Author: Graciela Amaral PA-C Service: ? Author Type: Physician Narcotics And Vice Detective Type: Progress Notes Filed: 08/10/2023 6:06 PM Note Text: This note was created using [employer]. Subjective Terrance Brar is a 58 year old female. HPI [...] THREE TIMES DAILY 100 Strip 11 Insulin [place], Disposable, (BD ULTRA-FINE BEN PEN NEEDLE) 32 [...] BIOPSY SINGLE/MULTIPLE 03/25 (more content not included)... [facility] 06-24-2023 Miscellaneous Notes Letter mailed to pt [...] follow up visit. documented in this encounter [facility] 06-10-2023 Miscellaneous Notes Pt notified of Dr Lopez's message. Pt verbalizes understanding. Advises that she will go to [facility] as instructed. Miguel Ángel Santoyo [...] hour ago. She says she was in [facility] on 06/04 with abdominal pain [...] water/day 8. MEDICATIONS: Says she was in [facility] ER on 06/04 with abdominal [...] hemorrhoids, rectal surgery, rectal fissure Protocols used: [id number] documented in this encounter [facility] 05-24-2023 Miscellaneous Notes Second attempt to reach [...] Department Center 07/09/2023 1:00 PM Jesica Mina APRN.MEASUREMENT PSYCHOLOGIST [facility] Please review and refill if appropriate. Thank you. Debra Greer May 20, 2023 2:17 PM documented in this encounter [facility] 05-20-2023 Note HNO ID: [id number] Author: Debra Greer Service: ? Author Type: ? Type: Progress Notes Filed: 05/20/2023 2:17 PM Note Text: Terrance Brar is identified through a medication adherence outreach initiative based on pharmacy claims data from [employer] (insurer) for Non-insulin DM medication(s) and Statin [...] status) - No refills remaining Debra Greer [facility] 05-20-2023 History of Present illness Narrative Terrance Brar is identified through a medication adherence outreach initiative based on pharmacy claims data from [employer] (insurer) for Non-insulin DM medication(s) and Statin [...] remaining Debra Greer documented in this encounter [facility] 05-20-2023 Note Patient Outreach ( YVONNE) TERRANCE BRAR ([id number]) 1965 F Date Time Provider Department 05/20/23 DWAYNE LOPEZ During your visit today, we recorded the following information about you: Doc Greerley 05/20/2023 2:17 PM Signed Susital Brar is identified through a medication adherence outreach initiative based on pharmacy claims data from [employer] (insurer) for Non-insulin DM medication(s) and Statin [...] Date Reviewed: 04/23/2023 Reviewed by: Vernon Degroot APRN.MEASUREMENT PSYCHOLOGIST - Fully Assessed Reason for Visit: Allied [...] blood sugar THREE TIMES DAILY - Insulin [place], Disposable, (BD ULTRA-FINE BEN PEN NEEDLE) 32 [...] [E04.1] 12/07/2008 Routine General Medical Examination at [facility]*12/10/2008 06/03/2015 Benign neoplasm of colon [D12.6] [...] right hand [M65.311] more content not included)... [facility] 05-04-2023 Note HNO ID: [id number] Author: Ariadna Kyle Service: ? Author Type: ? Type: Progress Notes Filed: 05/04/2023 2:15 PM Note Text: Terrance Brar is identified through a medication adherence outreach initiative based on pharmacy claims data from [employer] (insurer) for Non-insulin DM medication(s) and Statin [...] status) -Tried calling, no answer Ariadna Kyle [facility] 05-04-2023 History of Present illness Narrative Terrance Brar is identified through a medication adherence outreach initiative based on pharmacy claims data from [employer] (insurer) for Non-insulin DM medication(s) and Statin [...] answer Ariadna Kyle documented in this encounter [facility] 05-04-2023 Note Patient Outreach ( POHE) TERRANCE BRAR ([id number]) 1965 F Date Time Provider Department 05/04/23 DWAYNE LOPEZ During your visit today, we recorded the following information about you: Ariadna Kyle 05/04/2023 2:15 PM Signed Terrance Brar is identified through a medication adherence outreach initiative based on pharmacy claims data from [employer] (insurer) for Non-insulin DM medication(s) and Statin [...] Date Reviewed: 04/23/2023 Reviewed by: Vernon Degroot APRN.MEASUREMENT PSYCHOLOGIST - Fully Assessed Prescriptions as of 05/04/2023 [...] blood sugar THREE TIMES DAILY - Insulin [place], Disposable, (BD ULTRA-FINE BEN PEN NEEDLE) 32 [...] [E04.1] 12/07/2008 Routine General Medical Examination at [facility]*12/10/2008 06/03/2015 Benign neoplasm of colon [D12.6] [...] little finger [M65.35 (more content not included)... [facility] 04-23-2023 Note HNO ID: [id number] Author: Vernon Degroot APRN.MEASUREMENT PSYCHOLOGIST Service: ? Author Type: Nurse Practitioner Type: [...] test blood sugar THREE TIMES DAILY Insulin [place], Disposable, (BD ULTRA-FINE BEN PEN NEEDLE) 32 [...] CHF, DM eye (more content not included)... [facility] 04-23-2023 History of Present illness Narrative Images [...] type 2 diabetes mellitus with neurological manifestations ([facility]) 02/27/2016 PAST SURGICAL HISTORY Procedure Laterality Date [...] test blood sugar THREE TIMES DAILY Insulin [place], Disposable, (BD ULTRA-FINE BEN PEN NEEDLE) 32 [...] and atraumatic. Nose: Nose normal. Mouth/Throat: Lips: [place]. Mouth: Mucous membranes are moist. Pharynx: Uvula [...] CLINDAMYCIN HCL 300 MG CAPSULE Vernon Degroot APRN.MEASUREMENT PSYCHOLOGIST documented in this encounter [facility] 04-08-2023 Note HNO ID: [id number] Author: Shital Menezes Service: ? Author Type: [...] Gap or Scheduling/Wellness visits Payer: Payor: [employer] KENNEDY HANKS [employer] / Plan: [employer] HMO / Product Type: HMO / Care [...] Shital Menezes April 08, 2023 1:51 PM [facility] 04-08-2023 Note Patient Outreach (AC CC) TERRANCE BRAR ([id number]) 1965 F Date Time Provider Department 04/08/23 PCP ([facility] During your visit today, we recorded the [...] Payer: Payor: VINH LEVIN / Plan: ANTHEM MEDIEyeICUE HMO / Product Type: HMO / Care [...] blood sugar THREE TIMES DAILY - Insulin [place], Disposable, (BD ULTRA-FINE BEN PEN NEEDLE) 32 [...] 12/07/2008 Routine General Medical Examination at a [facility]*12/10/2008 06/03/2015 Benign neoplasm of colon [D12.6] [...] Quervain's tenosynovitis [M65.4] (more content not included)... [facility] 04-08-2023 History of Present illness Narrative POPULATION HEALTH NAVIGATION OUTREACH Action/FYI Pt scheduled Patient Identified by Name and : YES, via phone Outreach Outcome/Action Spoke to patient / parent / legal guardian: Patient scheduled Did you use a PCP flex slot to schedule this appointment? No Reason for Outreach Care Gap or Scheduling/Wellness visits Payer: Payor: Review[employer]AP AND [employer] / Plan: [employer] HMO / Product Type: HMO / Care [...] 2023 1:51 PM documented in this encounter [facility] 04-07-2023 Note HNO ID: [id number] Author: Dwayne Lopez MD Service: ? Author Type: Physician Type: Progress Notes Filed: 04/12/2023 8:45 AM Note Text: Chief Complaint Patient presents with: SNF d/c follow up HPI Terrance Brar is a 57 year old female who presents here today for Above Complaints.. Patient had been a resident of [facility] since 03/2022 with discharge on 03/25. [...] for handicap ced. Patient also evaluated at [facility] ED on 03/28 for constipation [...] ovaries remain VAG (more content not included)... [facility] 04-07-2023 Miscellaneous Notes Patient here for appointment. Patient scheduled for SNF discharge follow up today at 1320. Phone call to patient to remind her to bring all discharge information to appointment today. LM to call office. Mariama Sandoval MA documented in this encounter [facility] 04-07-2023 History of Present illness Narrative Chief Complaint Patient presents with: SNF d/c follow up HPI Ashleylindaneil Brar is a 57 year old female who presents here today for Above Complaints.. Patient had been a resident of [facility] since 03/2022 with discharge on 03/25. [...] for handicap placard. Patient also evaluated at [facility] ED on 03/28 for constipation [...] test blood sugar THREE TIMES DAILY Insulin [place], Disposable, (BD ULTRA-FINE BEN PEN NEEDLE) 32 [...] which included preparing to see the patient, [id number] patient care, completing clinical documentation, obtaining and/or reviewing separately obtained history, performing a medically appropriate examination, counseling and educating the patient/family/caregiver, and ordering medications, tests, or procedures. Dwayne Lopez MD documented in this encounter [facility] 03-31-2023 Note Patient Outreach (IN TMMN) TERRANCE BRAR ([id number]) 1965 F Date Time Provider Department 03/31/23 [...] for screening mammogram for breast cancer [Z12.31] Order(s):[facility] SCREENING [[id number]] Order #: [id number] FUTURE Prescriptions as of 04/05/2023 - loperamide [...] blood sugar THREE TIMES DAILY - Insulin [place], Disposable, (BD ULTRA-FINE BEN PEN NEEDLE) 32 [...] [E04.1] 12/07/2008 Routine General Medical Examination at [facility]*12/10/2008 06/03/2015 Benign neoplasm of colon [D12.6] [...] Encounter Status:Closed by VAN, PRODUSER on 04/05/23 [facility] 03-24-2023 Note HNO ID: [id number] Author: Dwayne Lopez MD Service: ? Author Type: Physician Type: Progress Notes Filed: 03/24/2023 11:44 AM Note Text: Chief Complaint Patient presents with: Establish Care HPI Ashleylindaneil Brar is a 57 year old female who presents here today for Above Complaints. Accompanied today by her Shan. Patient has been a resident of [facility] since 03/2022 and is planning on being discharged tomorrow. States that she was admitted initially for weakness and inability to walk. This was attributed to her uncontrolled DM. Required 11 months of PT. I have not received any records from the care home as of yet. Patient has paperwork today [...] chewable tablet GABRIELA (more content not included)... [facility] 03-24-2023 History of Present illness Narrative Chief Complaint Patient presents with: Establish Care HPI Susital Brar is a 57 year old female who presents here today for Above Complaints. Accompanied today by her Shan. Patient has been a resident of [facility] since 03/2022 and is planning on being discharged tomorrow. States that she was admitted initially for weakness and inability to walk. This was attributed to her uncontrolled DM. Required 11 months of PT. I have not received any records from the care home as of yet. Patient has paperwork today [...] test blood sugar THREE TIMES DAILY Insulin [place], Disposable, (BD ULTRA-FINE BEN PEN NEEDLE) 32 [...] care visit. Will request discharge records from care home along with labs obtained 1-2 weeks ago. Dwayne Lopez MD documented in this encounter [facility] 03-16-2023 Note HNO ID: [id number] Author: Sharonda Sanchez Service: ? Author Type: ? Type: Progress Notes Filed: 03/16/2023 12:49 PM Note Text: Terrance Brar is identified through a medication adherence outreach initiative based on pharmacy claims data from [employer] (insurer) for Non-insulin DM medication(s) and Statin [...] Call patient and had to leave an DanceJam [facility] 03-16-2023 Note Patient Outreach ( PO) TERRANCE BRAR ([id number]) 1965 F Date Time Provider Department 03/16/23 NO PCP PHPOHE During your visit today, we recorded the following information about you: Sharonda Sanchez 03/16/2023 12:49 PM Signed Terrance Brar is identified through a medication adherence outreach initiative based on pharmacy claims data from [employer] (insurer) for Non-insulin DM medication(s) and Statin [...] patient and had to leave an VM DanceJam Allergies As of Date: 03/16/2023 Noted Allergy [...] blood sugar THREE TIMES DAILY - Insulin [place], Disposable, (BD Submitnet-FINE BEN PEN NEEDLE) 32 gauge x 5/32 [...] [E04.1] 12/07/2008 Routine General Medical Examination at [facility]*12/10/2008 06/03/2015 Benign neoplasm of colon [D12.6] [...] Renal stone [N20.0] (more content not included)... [facility] 02-23-2023 Note HNO ID: [id number] Author: Sharonda Sanchez Service: ? Author Type: ? Type: Progress Notes Filed: 02/23/2023 2:54 PM Note Text: Terrance Brar is identified through a medication adherence outreach initiative based on pharmacy claims data from [employer] (insurer) for Non-insulin DM medication(s) and Statin [...] and per call to patient/caregiver [facility]onda Sanchez [facility] History of Present illness Narrative Terrance Brar is identified through a medication adherence outreach initiative based on pharmacy claims data from [employer] (insurer) for Non-insulin DM medication(s) and Statin [...] and per call to patient/caregiver Sharonda Sanchez Law Firm Consultant documented in this encounter [facility] 02-23-2023 Note Patient Outreach ( POHE) TERRANCE BRAR ([id number]) 1965 F Date Time Provider Department 02/23/23 NO PCP PHPOHE During your visit today, we recorded the following information about you: Sharonda Sanchez 02/23/2023 2:54 PM Signed Terrance Buenrostrones is identified through a medication adherence outreach initiative based on pharmacy claims data from [employer] (insurer) for Non-insulin DM medication(s) and Statin [...] and per call to patient/caregiver Sharonda Sanchez Law Firm Consultant Allergies As of Date: 02/23/2023 Noted Allergy [...] blood sugar THREE TIMES DAILY - Insulin [place], Disposable, (BD ULTRA-FINE BEN PEN NEEDLE) 32 [...] [E04.1] 12/07/2008 Routine General Medical Examination at [facility]*12/10/2008 06/03/2015 Benign neoplasm of colon [D12.6] [...] [M65.351] 06/21/2017 Tri (more content not included)... [facility] 01-11-2023 Note HNO ID: [id number] Author: Aquilino Jha Service: ? Author Type: ? Type: Progress Notes Filed: 01/21/2023 9:43 AM Note Text: 01/11/23 attempt 3 - no answer [facility] 01-11-2023 History of Present illness Narrative 01/11/23 attempt 3 - no answer 01/04/23 attempt 2 - no answer LVM Pt chart reviewed as part of population health initiative focused on statin use in patients with diabetes (DM) or cardiovascular disease (CVD). Terrance Brar is identified through data from [employer] (insurer) as a potential candidate for statin [...] RPh PharmD BCACP documented in this encounter [facility] 01-04-2023 Note HNO ID: [id number] Author: Aquilino Jha Service: ? Author Type: ? Type: Progress Notes Filed: 01/21/2023 9:43 AM Note Text: 01/04/23 attempt 2 - no answer LVM [facility] 01-01-2023 Note HNO ID: [id number] Author: Aquilino Jha Service: ? Author Type: ? Type: Progress Notes Filed: 01/21/2023 9:43 AM Note Text: Pt chart reviewed as part of population health initiative focused on statin use in patients with diabetes (DM) or cardiovascular disease (CVD). Terrance Brar is identified through data from [employer] (insurer) as a potential candidate for statin [...] attempt 1 - no answer BERRY Jha [facility] 01-01-2023 Note HNO ID: [id number] Author: Gurjit Syed RPh Service: ? Author Type: Pharmacist Type: Progress Notes Filed: 01/21/2023 9:43 AM Note Text: Approving student documentation and outreach below. Gurjit Syed RPh PharmD [facility] 01-01-2023 Note Patient Outreach (PH POTAISHA) TERRANCE BRAR ([id number]) 1965 F Date Time Provider Department 01/01/23 GURJIT SYED During your visit today, we recorded the following information about you: Gurjit Syed RPh 01/21/2023 9:43 AM Signed Approving student documentation and outreach below. Gurjit Syed [facility] PharmD RAMÓN Jha 01/21/2023 9:43 AM Signed Pt chart reviewed as part of population health initiative focused on statin use in patients with diabetes (DM) or cardiovascular disease (CVD). Terrance Brar is identified through data from [employer] (insurer) as a potential candidate for statin [...] type 2 diabetes mellitus with neurological manifestations ([facility]) 02/27/2016 Cholesterol, Total (mg/dL) Date Value 12/28/2017 [...] subcutaneously w MEALS. (more content not included)... 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
E11.69 - Hyperlipidemia associated with type 2 diabetes mellitus (HCC) - [id number] Last Billed 12/26/2019
E21.3 - Hyperparathyroidism ([facility]) - [id number] Last Billed 09/18/2019
patient also due for [...] HCC or suspected condition Payer: Payor: VINH PetSitnStay AND BLUE [employer] / Plan: [employer] HMO / Product Type: HMO / Care [...] 2022 12:55 PM documented in this encounter [facility] documented as of this encounter (statuses as of 04/03/2022) [facility]09[facility]2015 History of Past illness Narrative* Problem Noted [...] of this encounter (statuses as of 01/21/2023) [facility] History of Past illness Narrative* Problem Noted [...] of this encounter (statuses as of 02/24/2023) [facility] History of Past illness Narrative* Problem Noted [...] of this encounter (statuses as of 03/24/2023) [facility] History of Past illness Narrative* Problem Noted Date Resolved Date Trigger thumb of left hand 07/23/201501/27 Carpal tunnel syndrome, left 05/27/201502/2017 Carpal tunnel syndrome, right 05/27/2015 Constipation 03/12/2015 06/03/2015 Anemia 03/12/2015 02/27/2016 Abdominal pain, right upper quadrant 06/05/2014 06/03/2015 Abdominal pain, epigastric 05/15/201406/03 Routine General Medical Exam ination at a [facility] 12/10/2008 06/03/2015 Overview: HCT [...] of this encounter (statuses as of 04/07/2023) [facility] History of Past illness Narrative* Problem Noted [...] of this encounter (statuses as of 04/08/2023) [facility] History of Past illness Narrative* Problem Noted [...] of this encounter (statuses as of 04/12/2023) [facility] History of Past illness Narrative* Problem Noted [...] of this encounter (statuses as of 04/23/2023) [facility] History of Past illness Narrative* Problem Noted [...] of this encounter (statuses as of 05/05/2023) [facility] History of Past illness Narrative* Problem Noted [...] of this encounter (statuses as of 05/20/2023) [facility] History of Past illness Narrative* Problem Noted [...] of this encounter (statuses as of 05/24/2023) [facility] History of Past illness Narrative* Problem Noted [...] of this encounter (statuses as of 06/10/2023) [facility] History of Past illness Narrative* Problem Noted [...] of this encounter (statuses as of 06/30/2023) [facility] History of Past illness Narrative* Problem Noted [...] of this encounter (statuses as of 08/18/2023) [facility] History of Past illness Narrative* Problem Noted [...] of this encounter (statuses as of 08/19/2023) [facility] History of Past illness Narrative* Problem Noted [...] of this encounter (statuses as of 08/20/2023) [facility] History of Past illness Narrative* Problem Noted [...] of this encounter (statuses as of 09/20/2023) [facility] Diagnosis Globus sensation- Primary Gastrointestinal malfunction arising from mental factors Gastroesophageal reflux disease, unspecified whether esophagitis present [facility] this encounter [facility] Diagnosis Generalized weakness- Primary Other malaise [...] type dependence, continuous [facility] Diagnosis Toothache- Primary Unspecified disorder of the teeth and supporting structures documented in this encounter [facility] Summary Purpose Family History No Family History Records FoundNo Family History Records FoundNo Family History Records FoundNo Family History Records FoundNo Family History Records FoundNo Family History Records Found Advance Directives No Advanced Directives Records FoundDocuments on File Type Date Recorded Patient Tissue Technician Expl anation Advance Directive(s) 10/10/2020 10:19 AM [...] CONSULT TO PODIATRY OFFICE/OUTPATIENT [facility] 60-74 MINUTES Dwayne Lopez MD [address] [place] [address] Referral ID Status Reason Start Date Expiration Date Visits Requested Visits Authorized [id number] Pending Review PCP Requested Referral 04/07/2023 04/06/2024 1 1 Specialty Diagnoses / Procedures Referred By Contac t Referred To Contact General Surgery Diagnoses Globus sensation Screening for colon cancer Procedures CONSULT TO GENERAL SURGERY OFFICE/OUTPATIENT [facility] 60-74 MINUTES Dwayne Lopez MD [address] [place] [address] Referral ID Status Reason Start Date Expiration Date Visits Requested Visits Authorized [id number] Pending Review PCP Requested Referral 04/07/2023 04/06/2024 1 1 Specialty Diagnoses / Procedures Referred By Contac t Referred To Contact Ophthalmology Diagnoses Diabetes mellitus type 2 with neurological manifestations (HCC) Change in vision Procedures CONSULT TO OPHTHALMOLOGY OFFICE/OUTPATIENT [facility] 60-74 MINUTES Dwayne Lopez MD [address] [place] [address] Referral ID Status Reason Start Date Expiration Date Visits Requested Visits Authorized [id number] Pending Review PCP Requested Referral 04/07/2023 04/06/2024 1 1 Additional Source Comments INFORMATION SOURCE (unrecogn ized section and content) DATE CREATED AUTHOR AUTHOR'S ORGANIZ ATION 04/14/2018 [facility] DATE CREATED AUTHOR AUTHOR'S ORGANIZ ATION 10/05/2018 [facility] DATE CREATED AUTHOR AUTHOR'S ORGANIZ ATION 10/19/2019 [facility] DATE CREATED AUTHOR AUTHOR'S ORGANIZ ATION 09/28/2020 [facility] ([place] DATE CREATED AUTHOR AUTHOR'S ORGANIZ ATION 11/03/2023 [facility] Source Comments (unrecognize d section and content) In the event this informatio n is protected by the Federal Confidentiality of Alcohol and Drug Abuse Patient Records regulations: The Federal rules restrict any use of the information to criminally investigate or prosecute any alcohol or drug abuse patient.[facility] the event this information is protected by the Federal Confidentiality of Alcohol and Drug Abuse Patient Records regulations: The Federal rules restrict any use of the information to criminally investigate or prosecute any alcohol or drug abuse patient.[facility] the event this information is protected by the Federal Confidentiality of Alcohol and Drug Abuse Patient Records regulations: The Federal rules restrict any use of the information to criminally investigate or prosecute any alcohol or drug abuse patient.[facility] the event this information is protected by the Federal Confidentiality of Alcohol and Drug Abuse Patient Records regulations: The Federal rules restrict any use of the information to criminally investigate or prosecute any alcohol or drug abuse patient.[facility] the event this information is protected by the Federal Confidentiality of Alcohol and Drug Abuse Patient Records regulations: The Federal rules restrict any use of the information to criminally investigate or prosecute any alcohol or drug abuse patient.[facility] the event this information is protected by the Federal Confidentiality of Alcohol and Drug Abuse Patient Records regulations: The Federal rules restrict any use of the information to criminally investigate or prosecute any alcohol or drug abuse patient.[facility] the event this information is protected by the Federal Confidentiality of Alcohol and Drug Abuse Patient Records regulations: The Federal rules restrict any use of the information to criminally investigate or prosecute any alcohol or drug abuse patient.[facility] the event this information is protected by the Federal Confidentiality of Alcohol and Drug Abuse Patient Records regulations: The Federal rules restrict any use of the information to criminally investigate or prosecute any alcohol or drug abuse patient.[facility] the event this information is protected by the Federal Confidentiality of Alcohol and Drug Abuse Patient Records regulations: The Federal rules restrict any use of the information to criminally investigate or prosecute any alcohol or drug abuse patient.[facility] the event this information is protected by the Federal Confidentiality of Alcohol and Drug Abuse Patient Records regulations: The Federal rules restrict any use of the information to criminally investigate or prosecute any alcohol or drug abuse patient.[facility] the event this information is protected by the Federal Confidentiality of Alcohol and Drug Abuse Patient Records regulations: The Federal rules restrict any use of the information to criminally investigate or prosecute any alcohol or drug abuse patient.[facility] the event this information is protected by the Federal Confidentiality of Alcohol and Drug Abuse Patient Records regulations: The Federal rules restrict any use of the information to criminally investigate or prosecute any alcohol or drug abuse patient.[facility] the event this information is protected by the Federal Confidentiality of Alcohol and Drug Abuse Patient Records regulations: The Federal rules restrict any use of the information to criminally investigate or prosecute any alcohol or drug abuse patient.[facility] the event this information is protected by the Federal Confidentiality of Alcohol and Drug Abuse Patient Records regulations: The Federal rules restrict any use of the information to criminally investigate or prosecute any alcohol or drug abuse patient.[facility] the event this information is protected by the Federal Confidentiality of Alcohol and Drug Abuse Patient Records regulations: The Federal rules restrict any use of the information to criminally investigate or prosecute any alcohol or drug abuse patient.[facility] the event this information is protected by the Federal Confidentiality of Alcohol and Drug Abuse Patient Records regulations: The Federal rules restrict any use of the information to criminally investigate or prosecute any alcohol or drug abuse patient.[facility] the event this information is protected by the Federal Confidentiality of Alcohol and Drug Abuse Patient Records regulations: The Federal rules restrict any use of the information to criminally investigate or prosecute any alcohol or drug abuse patient.[facility] Reason for Visit (unrecogniz ed section and [...] Date Comments Population Health Navigation Outreach 08/18/2023 [place] care gaps Reason Onset Date Comments Refill Request 08/18/2023 Reason Onset Date Comments Allied Health Visit 08/20/2023 Medication A dherence Outreach Reason Onset Date Comments Allied Health Visit 09/20/2023 Medication A dherence Outreach Care Teams (unrecognized sec tion and content) Sustainable Communities Designer Relationship Specialty Start Date End Date Dwayne Lopez MD [address], [place] [id number] PCP - General Family Medicine 03/24/23 Sustainable Communities Designer Relationship Specialty Start Date End Date Dwayne Lopez MD [address], [place] [id number] PCP - General Family Medicine 03/24/23 Sustainable Communities Designer Relationship Specialty Start Date End Date Dwayne Lopez MD [address] [place] [address] PCP - General Family Medicine 03/24/23 Sustainable Communities Designer Relationship Specialty Start Date End Date Dwayne Lopez MD [address] [place] [address] PCP - General Family Medicine 03/24/23 Sustainable Communities Designer Relationship Specialty Start Date End Date Dwayne Lopez MD [address] [place] [address] PCP - General Family Medicine 03/24/23 Sustainable Communities Designer Relationship Specialty Start Date End Date Dwayne Lopez MD [address] [place] [address] PCP - General Family Medicine 03/24/23 Sustainable Communities Designer Relationship Specialty Start Date End Date Dwayne Lopez MD [address] [place] [address] PCP - General Family Medicine 03/24/23 [employer] Relationship Specialty Start Date End Date Dwayne Lopez MD [address] [place] [address] PCP - General Family Medicine 03/24/23 [employer] Relationship Specialty Start Date End Date Dwayne Lopez MD [address] [place] [address] PCP - General Family Medicine 03/24/23 [employer] Relationship Specialty Start Date End Date Dwayne Lopez MD [address] [place] [address] PCP - General Family Medicine 5/31/23 [employer]er Relationship Specialty Start Date End Date Dwayne Lopez MD [address] [place] [address] PCP - General Family Medicine 03/24/23 FOR [...] BE BASED ON THE PRIMARY CLINICAL RECORDS. [employer] provides no warranty or guarantee of the accuracy or completeness of information in this document.
[2023-11-19 11:35] VITALS: BP 127/67; PULSE 68; RESP 18; TEMP 36.7; O2SAT 98
[2023-11-19 11:36] VITALS: BMI 34.9
--- OUTSIDE RECORDS SUMMARY | 2023-11-19 11:52 | XMS RPT_ITS | CCD ---
Author Name Unknown Address [address] [place] [address] Organization [facility] Care Team Providers Care Workforce Planning Analyst Name Role Phone BRUCE CALIXTO Unavailable Unavailable [...] ciprofloxacin; Translations: [CIPROFLOXACIN] Drug Allergy 8 Swelling [facility] Repository (20 sources) codeine; Translations: [CODEINE] Drug Allergy 4 Hives, Itching [facility] Repository (20 sources) ibuprofen; Translations: [IBUPROFEN] Drug Allergy 7 Hives [facility] Repository (19 sources) metFORMIN; Translations: [METFORMIN] Drug Allergy 7 Intolerance [facility] Repository (19 sources) naproxen; Translations: [NAPROXEN] Drug Allergy 7 Hives [facility] Repository (19 sources) Penicillins; Translations: [PENICILLINS] Propensity to adverse reactions (disorder) [facility] (19 sources) traMADol; Translations: [TRAMADOL HCL] Drug Allergy 7 [facility] Repository (1 source) Ciprofloxacin Drug Allergy 7 [facility] Work Phone: (1 source) Ketorolac Drug Allergy itching [facility] Work Phone: (1 source) Naproxen Drug Allergy 0 eyes swell, [facility] Work Phone: [phone] (1 source) Penicillin V Drug Allergy hives [facility] Work Phone: (1 source) traMADol Drug Allergy face swells [facility] Work Phone: (18 sources) celecoxib; Translations: [CELECOXIB] Drug Allergy 0 Rash [facility] (18 sources) Ketorolac; Translations: [KETOROLAC] Drug Allergy 9 GI Upset [facility] Work Phone: Medications Current Medications Medication Drug [...] daily as needed for anxiety attacks ALPRAZOLAM [phone] Beth K Angle MA aspirin 81 mg [...] 100 [degF] Vernon Degroot APRN.CNP Work Phone: [facility] 04-23-2023 14:35-0400 Body weight 81.1 kg Vernon Degroot APRN.CNP Work Phone: [facility] 04-23-2023 14:35-0400 Diastolic blood pressure 82 mm[Hg] Vernon Degroot APRN.CNP Work Phone: [facility] 04-23-2023 14:35-0400 Heart rate 94 /min Vernon Degroot APRN.CNP Work Phone: [facility] 04-23-2023 14:35-0400 Respiratory rate 21 /min Vernon Degroot APRN.CNP Work Phone: [facility] 04-23-2023 14:35-0400 SaO2% (BldA) [Mass fraction] 99 % Vernon Zane [employer] MAKER MACHINE.NEGATIVE SPOTTER Work Phone: [facility] 04-23-2023 14:35-0400 Systolic blood pressure 130 mm[Hg] Vernon Degroot APRN.NEGATIVE SPOTTER Work Phone: [facility] 04-07-2023 13:09-0400 Body height 152.4 cm Dwayne Lopez MD Work Phone: [facility] 04-07-2023 13:09-0400 Body weight 81.65 kg Dwayne Lopez MD Work Phone: [facility] 04-07-2023 13:09-0400 Diastolic blood pressure 74 mm[Hg] Dwayne Lopez MD Work Phone: [facility] 04-07-2023 13:09-0400 Heart rate 80 /min Dwayne Lopez MD Work Phone: [facility] 04-07-2023 13:09-0400 Respiratory rate 16 /min Dwayne Lopez MD Work Phone: [facility] 04-07-2023 13:09-0400 Systolic blood pressure 112 mm[Hg] Dwayne Lopez MD Work Phone: [facility] 03-24-2023 10:18-0400 Body weight 83.92 kg Dwayne Lopez MD Work Phone: [facility] 03-24-2023 10:18-0400 Diastolic blood pressure 64 mm[Hg] Dwayne Lopez MD Work Phone: [facility] 03-24-2023 10:18-0400 Heart rate 84 /min Dwayne Lopez MD Work Phone: [facility] 03-24-2023 10:18-0400 Respiratory rate 16 /min Dwayne Lopez MD Work Phone: [facility] 03-24-2023 10:18-0400 Systolic blood pressure 110 mm[Hg] Dwayne Lopez MD Work Phone: [facility] 07-28-2017 17:13-0400 BMI (Body Mass Index) 32.38 kg/m2 Angelika De La Torre LPN [facility] Work Phone: 07-28-2017 17:13-0400 Body Temperature 98.3 [degF] Angelika De La Torre LPN [facility] Work Phone: 07-28-2017 17:13-0400 BP Diastolic 76 mm[Hg] Angelika De La Torre LPN [facility] Work Phone: 07-28-2017 17:13-0400 BP Systolic 124 mm[Hg] Angelika De La Torre LPN [facility] Work Phone: 07-28-2017 17:13-0400 Height 152.4 cm Angelika De La Torre LPN [facility] Work Phone: 07-28-2017 17:13-0400 Pulse (Heart Rate) 72 /min Angelika De La Torre LPN [facility] Work Phone: 07-28-2017 17:13-0400 Respiratory Rate 15 /min Angelika De La Torre LPN [facility] Work Phone: 07-28-2017 17:13-0400 Weight 75.21 kg Angelika De La Torre LPN [facility] Work Phone: 02-04-2012 09:28-0400 BSA (Body Surface Area) 1.75 m2 Angelika De La Torre LPN [facility] Work Phone: Encounters Encounter [...] Detail Author Start: 06-09-2031 Urine microalbumin profile [facility] Start: 04-07-2024 3 comp foot exam completed DIABETIC FOOT EXAM [facility] Start: 04-07-2024 ANNUAL PCP TEAM MARINE OILER ASHELY DISEASE VISIT ANNUAL PCP TEAM CHRONIC DISEASE VISIT [facility] Start: 04-07-2024 COVID-19 VACCINE (4 - Booster for Pfizer series) COVID-19 VACCINE (4 - Booster for Pfizer series) [facility] Immunizations Immunization Date Immunization Notes Care Provider Fa cility 04-07-2023 pneumococcal (PCV20) vaccine, 20 valent (PREVNAR 20) Dwayne Lopez MD Work Phone: [facility] 04-07-2023 pneumococcal Conjuga te, unspecified formulation Dwayne Lopez MD Work Phone: [facility] Work Phone: 06-09-2021 tetanus toxoid, redu juan c diphtheria toxoid, and acellular pertussis vaccine, adsorbed Shital Jorge [facility] 09-18-2019 influenza, injectabl e, quadrivalent, contains preservative Shital Patel [facility] 09-18-2019 influenza virus vaccine, unspecified formulation Irena Hood [facility] 08-17-2019 influenza, injectabl e, quadrivalent, preservative free Shital Patel MA [facility] 07-04-2018 influenza, injectabl e, quadrivalent, preservative free Shital Patel [facility] 07-04-2018 pneumococcal polysaccharide vaccine, [address] [facility] 09-07-2013 influenza, seasonal, injectable, preservative free Shital Patel [facility] 11-23-2012 pneumococcal polysaccharide vaccine, [address] [facility] 08-14-2010 influenza, seasonal, injectable Angelika De La Torre LPN [facility] Work Phone: 03-10-2010 influenza, seasonal, injectable; Translations: [Follow Up Appt 2 weeks] Angelika De La Torre LPN [facility] Work Phone: 09-11-2009 novel [id number], preservative-free, injectable Shital Patel [facility] 10-10-2008 pneumococcal polysaccharide vaccine, [address] [facility] 08-25-2008 influenza virus vaccine, unspecified formulation Shital Patel [facility] Work Phone: 04-24-2006 tetanus and diphther ia toxoids, adsorbed, preservative free, for adult use (2 Lf of tetanus toxoid and 2 Lf of diphtheria toxoid) Shital Patel [facility] Work Phone: Payers Date Payer Category Payer Unknown ANTHEM BLUE CROS S AND BLUE SHIELD ANTHEM MEDIBLUE O [id number] 2022-[facility] [phone] [address] [place] [address] O [id number] 2022 Unknown ANTHEM BLUE CROS S AND BLUE SHIELD ANTHEM MEDIBLUE O [id number] 2022-Present [phone] [address] [place] [address] O [id number] 2022 Unknown [id number] 2014 Medicaid [id number] Unknown [id number] Unknown [id number] Unknown [id number] Unknown [id number] Unknown [id number] Social History Date Type Detail Facility Start: 10-21-2020 End: 03-24-2023 Tobacco smoking status NHIS Ex-smoker [facility] Start: 06-25-1977 End: 10-07-2020 History of tobacco use Current smoker [facility] Start: 06-25-1977 End: 10-07-2020 History of tobacco use Cigarette Smoker [facility] Start: 10-21-2020 End: 11-19-2022 Cigarettes smoked current (pack per day) - Reported 0.5 [facility] Start: 10-21-2020 End: 03-24-2023 Tobacco use and exposure Smokeless tobacco non-user [facility] Start: 10-31-2021 End: 08-10-2023 Alcohol intake Current non-drinker of alcohol (finding) [facility] Start: 05-27-2015 History SDOH Alcohol Comment Seldom- twice yearly [facility] Start: 1965 Sex Assigned At Not on file C [facility] Start: 11-19-2022 End: 04-23-2023 Tobacco use panel [facility] National Score (1-10 0), lower number is lower risk 70 [facility] Medical Equipment Procedure Code Equipment Code Equipment Origin al Text Equipment Identifier Dates TEST STRIPS TEST STRIPS [id number] Start: 08-14-2010 LANCET LANCET [id number] Start: 08-14-2010 INSULIN PEN NEEDLE [id number] Start: 08-14-2010 Goals Date Patient Goal Desired Activity /State Personal health goal Clinical Notes 07-23-2015 to 11-02-2023 Ariadna Kyle - 09/20/2023 8:48 AM Sharonda Delong - 08/20/2023 4:22 PM EDTTelephone Encounter - Mary Ellen Karimi LPN - 08/18/2023 4:53 PM EDTIrena Hood PSS - 08/18/2023 7:58 AM EDT Note Date & Type Note Facility 11-02-2023 Note Patient Outreach (NE TNAV) TERRANCE BRAR ([id number]) 1965 F Date Time Provider Department 11/02/23 [...] HCC or suspected condition Payer: Payor: VINH Dhingana AND Geneva Mars / Plan: [employer]VANT[employer] HMO / [...] Population Health Navigation Outreach [3910] Cmt: Vinh [facility] Prescriptions as of 11/02/2023 - dulaglutide [...] blood sugar THREE TIMES DAILY - Insulin Green Sea, Disposable, (BD ULTRA-FINE BEN PEN NEEDLE) 32 [...] 06/03/2015 Lumbar degen (more content not included)... [facility] 11-02-2023 Note HNO ID: [id number] Author: MARLEE CAREY MA Service: ? Author Type: Systems Admin Type: Progress Notes Filed: 11/02/2023 09:16 Note Text: POPULATION HEALTH NAVIGATION OUTREACH Action/I November 02, 2023 [place] [facility] Care Gaps/Scheduling needs Annual Wellness Exam Dilated Eye Exam A1c Urine Albumin Mammogram CRCS Flu shot Outcome/Action Lm on Vm Marlee Carey MA Patient Identified by Name and : NO Outreach Outcome/Action Unable to reach patient: Left message Did you use a PCP flex slot to schedule this appointment? N/A Reason for Outreach HCC or suspected condition Payer: Payor: VINH Dhingana AND Geneva Mars / Plan: AN[employer]M MEDICARE ADVANTAGE HMO / [...] Carey MA November 02, 2023 9:04 AM [facility] 10-13-2023 Note Patient Outreach (PH MEWO) TERRANCE BRAR ([id number]) 1965 F Date Time Provider Department 10/13/23 [...] New visit types. Elizabeth Seniorvirgil [facility] Allergies As of Date: 10/13/2023 Noted [...] 2 diabetes (HCC) [E11.9] Order(s):CONSULT TO PHARMACY [852135] Order #: [id number]: 1 Prescriptions as of 10/13/2023 - dulaglutide [...] blood sugar THREE TIMES DAILY - Insulin Green Sea, Disposable, (BD ULTRA-FINE BEN PEN NEEDLE) 32 [...] obstruction or gangr*09/04/2019 (more content not included)... [facility] 10-13-2023 Note HNO ID: [id number] Author: Elizabeth Jennings RPh Service: ? Author [...] Primary New visit types. Elizabeth Jennings RPh [facility] 09-20-2023 Note Patient Outreach ( PO) TERRANCE BRAR ([id number]) 1965 F Date Time Provider Department 09/20/23 DWAYNE LOPEZ During your visit today, we recorded the following information about you: Ariadna Kyle 09/20/2023 8:52 AM Signed Terrance Brar is identified through a medication adherence outreach initiative based on pharmacy claims data from [employer] (insurer) for Statin medication(s). Patient is reviewed [...] blood sugar THREE TIMES DAILY - Insulin Green Sea, Disposable, (BD ULTRA-FINE BEN PEN NEEDLE) 32 [...] finger, right [M65 (more content not included)... [facility] 09-20-2023 Note HNO ID: [id number] Author: Ariadna Kyle Service: ? Author Type: ? Type: Progress Notes Filed: 09/20/2023 8:52 AM Note Text: Terrance Brar is identified through a medication adherence outreach initiative based on pharmacy claims data from [employer] (insurer) for Statin medication(s). Patient is reviewed 09/20/23 due to medication adherence concerns with the following medications (name, strength, sig): atorvastatin 40mg, take 1 tablet daily. Per data/report, last fill date and days supply: due 09/20/23 Per reconcile dispense, last fill date and days supply: filled 08/19/23 (reversed) Outcome of review/outreach: (choose outcome source and status) -2nd attempt Left message Ariadna Kyle [facility] 09-20-2023 History of Present illness Narrative Terrance Brar is identified through a medication adherence outreach initiative based on pharmacy claims data from [employer] (insurer) for Statin medication(s). Patient is reviewed [...] message Ariadna Kyle documented in this encounter [facility] 08-20-2023 Note HNO ID: [id number] Author: Sharonda Sanchez Service: ? Author Type: ? Type: Progress Notes Filed: 08/20/2023 4:30 PM Note Text: Terrance Brar is identified through a medication adherence outreach initiative based on pharmacy claims data from [employer] (insurer) for Non-insulin DM medication(s) and Statin [...] Both were [facility] refill [facility] of Present illness Narrative Terrance Brar is identified through a medication adherence outreach initiative based on pharmacy claims data from [employer] (insurer) for Non-insulin DM medication(s) and Statin [...] Both were out of refill Sharonda Sanchez No Experience documented in this encounter [facility] 08-20-2023 Note Patient Outreach ([facility]) TERRANCE BRAR ([id number]) 1965 F Date Time Provider Department 08/20/23 [facility] During your visit today, we recorded the following information about you: Sharonda Sanchez 08/20/2023 4:30 PM Signed Terrance Brar is identified through a medication adherence outreach initiative based on pharmacy claims data from [employer] (insurer) for Non-insulin DM medication(s) and Statin [...] reconcile dispense Both were out of refill [facility] No Experience Allergies As of Date: 08/20/2023 Noted Allergy [...] blood sugar THREE TIMES DAILY - Insulin Green Sea, Disposable, (BD ULTRA-FINE BEN PEN NEEDLE) 32 [...] 2 with neuro (more content not included)... [facility] 08-18-2023 Miscellaneous Notes Spoke with pt [...] Department Center 08/26/2023 1:40 PM 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 APRN.DEYANIRA [facility] Please review and refill if appropriate. Thank you. Sharonda Sanchez August 18, 2023 4:11 PM documented in this encounter [facility] 08-18-2023 Note Patient Outreach (NE TNAV) TERRANCE BRAR ([id number]) 1965 F Date Time Provider Department 08/18/23 [...] Care Gap or Scheduling/Wellness visits Payer: Payor: [employer] / Plan: [employer] HMO / Product Type: HMO / Care [...] blood sugar THREE TIMES DAILY - Insulin Green Sea, Disposable, (BD ULTRA-FINE BEN PEN NEEDLE) 32 [...] 05/15/2014 06/03/2015 Gastric (more content not included)... [facility] 08-18-2023 Note HNO ID: [id number] Author: Irena Hood PSS Service: ? Author [...] Care Gap or Scheduling/Wellness visits Payer: Payor: [employer] AND Geneva Mars / Plan: [employer] HMO / Product Type: HMO / Care [...] AMY Jeff August 18, 2023 7:58 AM [facility] 08-18-2023 History of Present illness Narrative [...] Care Gap or Scheduling/Wellness visits Payer: Payor: [employer] AND Geneva Mars / Plan: [employer] HMO / Product Type: HMO / Care [...] 2023 7:58 AM documented in this encounter [facility] 08-10-2023 Note HNO ID: [id number] Author: Graciela Amaral PA-C Service: ? Author Type: Physician Jar Capper Type: Progress Notes Filed: 08/10/2023 6:06 PM Note Text: This note was created using [employer] Subjective Terrance Brar is a 58 year [...] THREE TIMES DAILY 100 Strip 11 Insulin Green Sea, Disposable, (BD ULTRA-FINE BEN PEN NEEDLE) 32 [...] BIOPSY SINGLE/MULTIPLE 03/25 (more content not included)... [facility] 06-24-2023 Miscellaneous Notes Letter mailed to [...] follow up visit. documented in this encounter [facility] 06-10-2023 Miscellaneous Notes Pt notified of Dr Lopez's message. Pt verbalizes understanding. Advises that she will go to [facility] as instructed. Miguel Ángel Santoyo LPN [...] hour ago. She says she was in [facility] on 06/04 with abdominal pain and [...] water/day 8. MEDICATIONS: Says she was in [facility] ER on 06/04 with abdominal pain [...] hemorrhoids, rectal surgery, rectal fissure Protocols used: [id number] documented in this encounter [facility] 05-24-2023 Miscellaneous Notes Second attempt to reach [...] Department Center 07/09/2023 1:00 PM Jesica Mina APRN.NEGATIVE SPOTTER [facility] Please review and refill if appropriate. Thank you. Debra Greer May 20, 2023 2:17 PM documented in this encounter [facility] 05-20-2023 Note HNO ID: [id number] Author: Debra Greer Service: ? Author Type: ? Type: Progress Notes Filed: 05/20/2023 2:17 PM Note Text: Terrance Brar is identified through a medication adherence outreach initiative based on pharmacy claims data from [employer] (insurer) for Non-insulin DM medication(s) and Statin [...] status) - No refills remaining Debra Greer [facility] 05-20-2023 History of Present illness Narrative Terrance Brar is identified through a medication adherence outreach initiative based on pharmacy claims data from [employer] (insurer) for Non-insulin DM medication(s) and Statin [...] remaining Debra Greer documented in this encounter [facility] 05-20-2023 Note Patient Outreach ( YVONNE) TERRANCE BRAR ([id number]) 1965 F Date Time Provider Department 05/20/23 DWAYNE LOPEZ During your visit today, we recorded the following information about you: Doc Greerley 05/20/2023 2:17 PM Signed Susital Brar is identified through a medication adherence outreach initiative based on pharmacy claims data from [employer] (insurer) for Non-insulin DM medication(s) and Statin [...] Date Reviewed: 04/23/2023 Reviewed by: Vernon Degroot APRN.NEGATIVE SPOTTER - Fully Assessed Reason for Visit: Allied [...] blood sugar THREE TIMES DAILY - Insulin Green Sea, Disposable, (BD ULTRA-FINE BEN PEN NEEDLE) 32 [...] right hand [M65.311] more content not included)... [facility] 05-04-2023 Note HNO ID: [id number] Author: Ariadna Kyle Service: ? Author Type: ? Type: Progress Notes Filed: 05/04/2023 2:15 PM Note Text: Terrance Brar is identified through a medication adherence outreach initiative based on pharmacy claims data from [employer] (insurer) for Non-insulin DM medication(s) and Statin [...] status) -Tried calling, no answer Ariadna Kyle [facility] 05-04-2023 History of Present illness Narrative Terrance Brar is identified through a medication adherence outreach initiative based on pharmacy claims data from [employer] (insurer) for Non-insulin DM medication(s) and Statin [...] answer Ariadna Kyle documented in this encounter [facility] 05-04-2023 Note Patient Outreach ( POHE) TERRANCE BRAR ([id number]) 1965 F Date Time Provider Department 05/04/23 DWAYNE LOPEZ During your visit today, we recorded the following information about you: Ariadna Kyle 05/04/2023 2:15 PM Signed Terrance Brar is identified through a medication adherence outreach initiative based on pharmacy claims data from [employer] (insurer) for Non-insulin DM medication(s) and Statin [...] Date Reviewed: 04/23/2023 Reviewed by: Vernon Degroot APRN.NEGATIVE SPOTTER - Fully Assessed Prescriptions as of 05/04/2023 [...] blood sugar THREE TIMES DAILY - Insulin Green Sea, Disposable, (BD ULTRA-FINE BEN PEN NEEDLE) 32 [...] little finger [M65.35 (more content not included)... [facility] 04-23-2023 Note HNO ID: [id number] Author: Vernon Degroot APRN.NEGATIVE SPOTTER Service: ? Author Type: Nurse Practitioner Type: [...] test blood sugar THREE TIMES DAILY Insulin Green Sea, Disposable, (BD ULTRA-FINE BEN PEN NEEDLE) 32 [...] CHF, DM eye (more content not included)... [facility] 04-23-2023 History of Present illness Narrative [...] type 2 diabetes mellitus with neurological manifestations ([facility]) 02/27/2016 PAST SURGICAL HISTORY Procedure Laterality [...] test blood sugar THREE TIMES DAILY Insulin Green Sea, Disposable, (BD ULTRA-FINE BEN PEN NEEDLE) 32 [...] and atraumatic. Nose: Nose normal. Mouth/Throat: Lips: [place]. Mouth: Mucous membranes are moist. Pharynx: Uvula [...] CLINDAMYCIN HCL 300 MG CAPSULE Vernon Degroot APRN.NEGATIVE SPOTTER documented in this encounter [facility] 04-08-2023 Note HNO ID: [id number] Author: Shital Menezes Service: ? Author Type: [...] Gap or Scheduling/Wellness visits Payer: Payor: VINH Dhingana KENNEDY HANKS [employer] / Plan: [employer]) [employer] HMO / Product Type: HMO / [...] Shital Menezes April 08, 2023 1:51 PM [facility] 04-08-2023 Note Patient Outreach (AC CC) TERRANCE BRAR ([id number]) 1965 F Date Time Provider Department 04/08/23 PCP ([facility] During your visit today, we recorded [...] Payer: Payor: VINH LEVIN / Plan: ANTHEM [employer] HMO / Product Type: HMO / Care [...] blood sugar THREE TIMES DAILY - Insulin Green [place], Disposable, (BD ULTRA-FINE BEN PEN NEEDLE) 32 [...] 12/07/2008 Routine General Medical Examination at a [facility]*12/10/2008 06/03/2015 Benign neoplasm of colon [D12.6] [...] Quervain's tenosynovitis [M65.4] (more content not included)... [facility] 04-08-2023 History of Present illness Narrative POPULATION HEALTH NAVIGATION OUTREACH Action/FYI Pt scheduled Patient Identified by Name and : YES, via phone Outreach Outcome/Action Spoke to patient / parent / legal guardian: Patient scheduled Did you use a PCP flex slot to schedule this appointment? No Reason for Outreach Care Gap or Scheduling/Wellness visits Payer: Payor: [employer] AND Geneva Mars / Plan: [employer] HMO / Product Type: HMO / Care [...] 2023 1:51 PM documented in this encounter [facility] 04-07-2023 Note HNO ID: [id number] Author: Dwayne Lopez MD Service: ? Author Type: Physician Type: Progress Notes Filed: 04/12/2023 8:45 AM Note Text: Chief Complaint Patient presents with: SNF d/c follow up HPI Terrance Brar is a 57 year old female who presents here today for Above Complaints.. Patient had been a resident of [facility] since 03/2022 with discharge on 03/25. [...] for handicap ced. Patient also evaluated at [facility] ED on 03/28 for constipation for [...] ovaries remain VAG (more content not included)... [facility] 04-07-2023 Miscellaneous Notes Patient here for appointment. Patient scheduled for SNF discharge follow up today at 1320. Phone call to patient to remind her to bring all discharge information to appointment today. LM to call office. Mariama Sandoval MA documented in this encounter [facility] 04-07-2023 History of Present illness Narrative Chief Complaint Patient presents with: SNF d/c follow up HPI Ashleylindaneil Brar is a 57 year old female who presents here today for Above Complaints.. Patient had been a resident of [facility] since 03/2022 with discharge on 03/25. [...] for handicap placard. Patient also evaluated at [facility] ED on 03/28 for constipation for [...] test blood sugar THREE TIMES DAILY Insulin Green Sea, Disposable, (BD ULTRA-FINE BEN PEN NEEDLE) 32 [...] which included preparing to see the patient, [id number] patient care, completing clinical documentation, obtaining and/or reviewing separately obtained history, performing a medically appropriate examination, counseling and educating the patient/family/caregiver, and ordering medications, tests, or procedures. Dwayne Lopez MD documented in this encounter [facility] 03-31-2023 Note Patient Outreach (IN TMMN) TERRANCE BRAR ([id number]) 1965 F Date Time Provider Department 03/31/23 [...] for screening mammogram for breast cancer [Z12.31] Order(s):[facility] SCREENING [[id number]] Order #: [id number] FUTURE Prescriptions as of 04/05/2023 - loperamide [...] blood sugar THREE TIMES DAILY - Insulin Green Sea, Disposable, (BD ULTRA-FINE BEN PEN NEEDLE) 32 [...] Encounter Status:Closed by VAN, PRODUSER on 04/05/23 [facility] 03-24-2023 Note HNO ID: [id number] Author: Dwayne Lopez MD Service: ? Author Type: Physician Type: Progress Notes Filed: 03/24/2023 11:44 AM Note Text: Chief Complaint Patient presents with: Establish Care HPI Ashleylindaneil Brar is a 57 year old female who presents here today for Above Complaints. Accompanied today by her Shan. Patient has been a resident of [facility] since 03/2022 and is planning on [...] chewable tablet GABRIELA (more content not included)... [facility] 03-24-2023 History of Present illness Narrative Chief Complaint Patient presents with: Establish Care HPI Susital Brar is a 57 year old female who presents here today for Above Complaints. Accompanied today by her Shan. Patient has been a resident of [facility] since 03/2022 and is planning on [...] test blood sugar THREE TIMES DAILY Insulin Green Sea, Disposable, (BD ULTRA-FINE BEN PEN NEEDLE) 32 [...] Dwayne Lopez MD documented in this encounter [facility] 03-16-2023 Note HNO ID: [id number] Author: Sharonda Sanchez Service: ? Author Type: ? Type: Progress Notes Filed: 03/16/2023 12:49 PM Note Text: Terrance Brar is identified through a medication adherence outreach initiative based on pharmacy claims data from [employer] (insurer) for Non-insulin DM medication(s) and Statin [...] Call patient and had to leave an [employer] [facility] 03-16-2023 Note Patient Outreach ( PO) TERRANCE BRAR ([id number]) 1965 F Date Time Provider Department 03/16/23 NO PCP PHPOHE During your visit today, we recorded the following information about you: Sharonda Sanchez 03/16/2023 12:49 PM Signed Terrance Brar is identified through a medication adherence outreach initiative based on pharmacy claims data from [employer] (insurer) for Non-insulin DM medication(s) and Statin [...] patient and had to leave an VM [employer] Allergies As of Date: 03/16/2023 Noted Allergy [...] blood sugar THREE TIMES DAILY - Insulin Green Sea, Disposable, (BD [employer]-FINE BEN PEN NEEDLE) 32 gauge x 5/32 [...] Renal stone [N20.0] (more content not included)... [facility] 02-23-2023 Note HNO ID: [id number] Author: Shraonda Sanchez Service: ? Author Type: ? Type: Progress Notes Filed: 02/23/2023 2:54 PM Note Text: Terrance Brar is identified through a medication adherence outreach initiative based on pharmacy claims data from [employer] (insurer) for Non-insulin DM medication(s) and Statin [...] and per call to patient/caregiver [facility] of Present illness Narrative Terrance Brar is identified through a medication adherence outreach initiative based on pharmacy claims data from [employer] (insurer) for Non-insulin DM medication(s) and Statin [...] and per call to patient/caregiver Sharonda Sanchez No Experience documented in this encounter [facility] 02-23-2023 Note Patient Outreach ( POHE) TERRANCE BRAR ([id number]) 1965 F Date Time Provider Department 02/23/23 NO PCP PHPOHE During your visit today, we recorded the following information about you: Sharonda Sanchez 02/23/2023 2:54 PM Signed Terrance Buenrostrones is identified through a medication adherence outreach initiative based on pharmacy claims data from [employer] (insurer) for Non-insulin DM medication(s) and Statin [...] and per call to patient/caregiver Sharonda Sanchez No Experience Allergies As of Date: 02/23/2023 Noted Allergy [...] blood sugar THREE TIMES DAILY - Insulin Green Sea, Disposable, (BD ULTRA-FINE BEN PEN NEEDLE) 32 [...] [M65.351] 06/21/2017 [facility] (more content not included)... [facility] 01-11-2023 Note HNO ID: [id number] Author: Aquilino Jha Service: ? Author Type: ? Type: Progress Notes Filed: 01/21/2023 9:43 AM Note Text: 01/11/23 attempt 3 - no answer [facility] 01-11-2023 History of Present illness Narrative 01/11/23 attempt 3 - no answer 01/04/23 attempt 2 - no answer LVM Pt chart reviewed as part of population health initiative focused on statin use in patients with diabetes (DM) or cardiovascular disease (CVD). Terrance Brar is identified through data from [employer] (insurer) as a potential candidate for statin [...] RPh PharmD BCACP documented in this encounter [facility] 01-04-2023 Note HNO ID: [id number] Author: Aquilino Jha Service: ? Author Type: ? Type: Progress Notes Filed: 01/21/2023 9:43 AM Note Text: 01/04/23 attempt 2 - no answer LVM [facility] 01-01-2023 Note HNO ID: [id number] Author: Aquilino Jha Service: ? Author Type: ? Type: Progress Notes Filed: 01/21/2023 9:43 AM Note Text: Pt chart reviewed as part of population health initiative focused on statin use in patients with diabetes (DM) or cardiovascular disease (CVD). Terrance Brar is identified through data from [employer] (insurer) as a potential candidate for statin [...] attempt 1 - no answer BERRY Jha [facility] 01-01-2023 Note HNO ID: [id number] Author: Gurjit Syed RPh Service: ? Author Type: Pharmacist Type: Progress Notes Filed: 01/21/2023 9:43 AM Note Text: Approving student documentation and outreach below. Gurjit Syed RPh PharmD [facility] 01-01-2023 Note Patient Outreach (PH POTAISHA) TERRANCE BRAR ([id number]) 1965 F Date Time Provider Department 01/01/23 GURJIT SYED During your visit today, we recorded the following information about you: Gurjit Syed RPh 01/21/2023 9:43 AM Signed Approving student documentation and outreach below. Gurjit Syed [facility] PharmD RAMÓN Jha 01/21/2023 9:43 AM Signed Pt chart reviewed as part of population health initiative focused on statin use in patients with diabetes (DM) or cardiovascular disease (CVD). Terrance Brar is identified through data from [employer] (insurer) as a potential candidate for statin [...] type 2 diabetes mellitus with neurological manifestations ([facility]) 02/27/2016 Cholesterol, Total (mg/dL) Date Value [...] subcutaneously w MEALS. (more content not included)... 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
E11.69 - Hyperlipidemia associated with type 2 diabetes mellitus (HCC) - [id number] Last Billed 12/26/2019
E21.3 - Hyperparathyroidism ([facility]) - [id number] Last Billed 09/18/2019
patient also due for [...] HCC or suspected condition Payer: Payor: VIN[employer]hing[employer] AND BLUE [employer] / Plan: [employer] H[employer] / Product Type: HMO / Care [...] 2022 12:55 PM documented in this encounter [facility] documented as of this encounter (statuses as of 04/03/2022) [facility] History of Past illness Narrative* Problem Noted [...] of this encounter (statuses as of 01/21/2023) [facility] of [facility] Narrative* Problem Noted [...] of this encounter (statuses as of 02/24/2023) [facility] Narrative* Problem Noted [...] of this encounter (statuses as of 03/24/2023) [facility] of [facility] Narrative* Problem Noted Date Resolved Date Trigger thumb of left hand 07/23/201501/27 Carpal tunnel syndrome, left 05/27/201502/2017 Carpal tunnel syndrome, right 05/27/2015 Constipation 03/12/2015 06/03/2015 Anemia 03/12/2015 02/27/2016 Abdominal pain, right upper quadrant 06/05/2014 06/03/2015 Abdominal pain, epigastric 05/15/201406/03 Routine General Medical Exam ination at a [facility] 12/10/2008 06/03/2015 Overview: HCT [...] of this encounter (statuses as of 04/07/2023) [facility] History of Past illness Narrative* Problem Noted [...] of this encounter (statuses as of 04/08/2023) [facility] Narrative* Problem Noted [...] of this encounter (statuses as of 04/12/2023) [facility] Narrative* Problem Noted [...] of this encounter (statuses as of 04/23/2023) [facility] Narrative* Problem Noted [...] of this encounter (statuses as of 05/05/2023) [facility] Narrative* Problem Noted [...] of this encounter (statuses as of 05/20/2023) [facility] Narrative* Problem Noted [...] of this encounter (statuses as of 05/24/2023) [facility] Narrative* Problem Noted [...] of this encounter (statuses as of 06/10/2023) [facility] Narrative* Problem Noted [...] of this encounter (statuses as of 06/30/2023) [facility] Narrative* Problem Noted [...] of this encounter (statuses as of 08/18/2023) [facility] Narrative* Problem Noted [...] of this encounter (statuses as of 08/19/2023) [facility] Narrative* Problem Noted [...] of this encounter (statuses as of 08/20/2023) [facility] Narrative* Problem Noted [...] of this encounter (statuses as of 09/20/2023) [facility] Diagnosis Globus sensation- Primary Gastrointestinal malfunction arising from mental factors Gastroesophageal reflux disease, unspecified whether esophagitis present [facility] Diagnosis Generalized weakness- Primary Other malaise [...] type dependence, continuous [facility] Toothache- Primary Unspecified disorder of the teeth and supporting structures documented in this encounter [facility] Summary Purpose Family History No Family History Records FoundNo Family History Records FoundNo Family History Records FoundNo Family History Records FoundNo Family History Records FoundNo Family History Records Found Advance Directives No Advanced Directives Records FoundDocuments on File Type Date Recorded 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 Advance Directive(s) 10/10/2020 10:19 AM [...] mellitus (HCC) Procedures CONSULT TO PODIATRY OFFICE/OUTPATIENT [facility] 60-74 MINUTES Dwayne Lopez MD [address] [place] [address] Referral ID Status Reason Start Date Expiration Date Visits Requested Visits Authorized [id number] Pending Review PCP Requested Referral 04/07/2023 04/06/2024 1 1 Specialty Diagnoses / Procedures Referred By Contac t Referred To Contact General Surgery Diagnoses Globus sensation Screening for colon cancer Procedures CONSULT TO GENERAL SURGERY OFFICE/OUTPATIENT [facility] 60-74 MINUTES Dwayne Lopez MD [address] [place] [address] Referral ID Status Reason Start Date Expiration Date Visits Requested Visits Authorized [id number] Pending Review PCP Requested Referral 04/07/2023 04/06/2024 1 1 Specialty Diagnoses / Procedures Referred By Contac t Referred To Contact Ophthalmology Diagnoses Diabetes mellitus type 2 with neurological manifestations (HCC) Change in vision Procedures CONSULT TO OPHTHALMOLOGY OFFICE/OUTPATIENT [facility] 60-74 MINUTES Dwayne Lopez MD [address] [place] [address] Referral ID Status Reason Start Date Expiration Date Visits Requested Visits Authorized [id number] Pending Review PCP Requested Referral 04/07/2023 04/06/2024 1 1 Additional Source Comments INFORMATION SOURCE (unrecogn ized section and content) DATE CREATED AUTHOR AUTHOR'S ORGANIZ ATION 04/14/2018 [facility] DATE CREATED AUTHOR AUTHOR'S ORGANIZ ATION 10/05/2018 [facility] DATE CREATED AUTHOR AUTHOR'S ORGANIZ ATION 10/19/2019 [facility] DATE CREATED AUTHOR AUTHOR'S ORGANIZ ATION 09/28/2020 [facility] DATE CREATED AUTHOR AUTHOR'S ORGANIZ ATION 11/03/2023 [facility] Source Comments (unrecognize d section and content) In the event this informatio n is protected by the Federal Confidentiality of Alcohol and Drug Abuse Patient Records regulations: The Federal rules restrict any use of the information to criminally investigate or prosecute any alcohol or drug abuse patient.[facility] the event this information is protected by the Federal Confidentiality of Alcohol and Drug Abuse Patient Records regulations: The Federal rules restrict any use of the information to criminally investigate or prosecute any alcohol or drug abuse patient.[facility] the event this information is protected by the Federal Confidentiality of Alcohol and Drug Abuse Patient Records regulations: The Federal rules restrict any use of the information to criminally investigate or prosecute any alcohol or drug abuse patient.[facility] the event this information is protected by the Federal Confidentiality of Alcohol and Drug Abuse Patient Records regulations: The Federal rules restrict any use of the information to criminally investigate or prosecute any alcohol or drug abuse patient.[facility] the event this information is protected by the Federal Confidentiality of Alcohol and Drug Abuse Patient Records regulations: The Federal rules restrict any use of the information to criminally investigate or prosecute any alcohol or drug abuse patient.[facility] the event this information is protected by the Federal Confidentiality of Alcohol and Drug Abuse Patient Records regulations: The Federal rules restrict any use of the information to criminally investigate or prosecute any alcohol or drug abuse patient.[facility] the event this information is protected by the Federal Confidentiality of Alcohol and Drug Abuse Patient Records regulations: The Federal rules restrict any use of the information to criminally investigate or prosecute any alcohol or drug abuse patient.[facility] the event this information is protected by the Federal Confidentiality of Alcohol and Drug Abuse Patient Records regulations: The Federal rules restrict any use of the information to criminally investigate or prosecute any alcohol or drug abuse patient.[facility] the event this information is protected by the Federal Confidentiality of Alcohol and Drug Abuse Patient Records regulations: The Federal rules restrict any use of the information to criminally investigate or prosecute any alcohol or drug abuse patient.[facility] the event this information is protected by the Federal Confidentiality of Alcohol and Drug Abuse Patient Records regulations: The Federal rules restrict any use of the information to criminally investigate or prosecute any alcohol or drug abuse patient.[facility] the event this information is protected by the Federal Confidentiality of Alcohol and Drug Abuse Patient Records regulations: The Federal rules restrict any use of the information to criminally investigate or prosecute any alcohol or drug abuse patient.[facility] the event this information is protected by the Federal Confidentiality of Alcohol and Drug Abuse Patient Records regulations: The Federal rules restrict any use of the information to criminally investigate or prosecute any alcohol or drug abuse patient.[facility] the event this information is protected by the Federal Confidentiality of Alcohol and Drug Abuse Patient Records regulations: The Federal rules restrict any use of the information to criminally investigate or prosecute any alcohol or drug abuse patient.[facility] the event this information is protected by the Federal Confidentiality of Alcohol and Drug Abuse Patient Records regulations: The Federal rules restrict any use of the information to criminally investigate or prosecute any alcohol or drug abuse patient.[facility] the event this information is protected by the Federal Confidentiality of Alcohol and Drug Abuse Patient Records regulations: The Federal rules restrict any use of the information to criminally investigate or prosecute any alcohol or drug abuse patient.[facility] the event this information is protected by the Federal Confidentiality of Alcohol and Drug Abuse Patient Records regulations: The Federal rules restrict any use of the information to criminally investigate or prosecute any alcohol or drug abuse patient.[facility] the event this information is protected by the Federal Confidentiality of Alcohol and Drug Abuse Patient Records regulations: The Federal rules restrict any use of the information to criminally investigate or prosecute any alcohol or drug abuse patient.[facility] Reason for Visit (unrecogniz ed section and [...] Date Comments Population Health Navigation Outreach 08/18/2023 [employer] care gaps Reason Onset Date Comments Refill Request 08/18/2023 Reason Onset Date Comments Allied Health Visit 08/20/2023 Medication A dherence Outreach Reason Onset Date Comments Allied Health Visit 09/20/2023 Medication A dherence Outreach Care Teams (unrecognized sec tion and content) Workforce Planning Analyst Relationship Specialty Start Date End Date Dwayne Lopez MD [address] [place], [place] [id number] PCP - General Family Medicine 03/24/23 Workforce Planning Analyst Relationship Specialty Start Date End Date Dwayne Lopez MD [address] [place], [place] [id number] PCP - General Family Medicine 03/24/23 Workforce Planning Analyst Relationship Specialty Start Date End Date Dwayne Lopez MD [address] [place] [address] PCP - General Family Medicine 03/24/23 Workforce Planning Analyst Relationship Specialty Start Date End Date Dwayne Lopez MD [address] [place] [address] PCP - General Family Medicine 03/24/23 Workforce Planning Analyst Relationship Specialty Start Date End Date Dwayne Lopez MD [address] [place] [address] PCP - General Family Medicine 03/24/23 Workforce Planning Analyst Relationship Specialty Start Date End Date Dwayne Lopez MD [address] [place] [address] PCP - General Family Medicine 03/24/23 Workforce Planning Analyst Relationship Specialty Start Date End Date Dwayne Lopez MD [address] [place] [address] PCP - General Family Medicine 03/24/23 Workforce Planning Analyst Relationship Specialty Start Date End Date Dwayne Lopez MD [address] [place] [address] PCP - General Family Medicine 03/24/23 Workforce Planning Analyst Relationship Specialty Start Date End Date Dwayne Lopez MD [address] [place] [address] PCP - General Family Medicine 03/24/23 Workforce Planning Analyst Relationship Specialty Start Date End Date Dwayne Lopez MD [address] [place] [address] PCP - General Family Medicine 5/31/23 Workforce Planning Analyst Relationship Specialty Start Date End Date Dwayne Lopez MD [address] [place] [address] PCP - General Family Medicine 03/24/23 FOR [...] BE BASED ON THE PRIMARY CLINICAL RECORDS. [employer] provides no warranty or guarantee of the accuracy or completeness of information in this document.
[2023-11-19] MEDS: KCL 20MEQ in 0.9% NS 20 MEQ/1,000 ML IV.SOLN. 200 MEQ IV ×3 (11:54→22:34)
[2023-11-19] MEDS: Insulin Lispro 100 UNIT/ML INSULN.PEN SC ×2 (11:56→16:22)
[2023-11-19] MEDS: Insulin Lispro 100 UNIT/ML INSULN.PEN 10 UNIT SC ×2 (11:56→16:22)
[2023-11-19 12:19] LABS: Bedside Glucose 417 mg/dL (74-106)
[2023-11-19] MEDS: HYDROmorphone 1 MG/ML Syringe IV (12:33)
[2023-11-19] MEDS: Insulin Glargine-YFGN 100 UNIT/ML Pen 30 UNIT SC (12:34)
[2023-11-19] MEDS: 0.9% Saline Lock 10 ML Syringe IV ×2 (12:35→18:20)
[2023-11-19 15:20] LABS: ALB/GLOB Ratio 0.9 RATIO (0.9-2.4); AST(SGOT) 24 U/L (15-37); Alanine Aminotransfer ALT/SGPT 27 U/L (13-56); Albumin, Serum 3.4 g/dL (3.2-5.0); Alkaline Phosphatase 60 U/L (45-117); Anion Gap 8 (5-15); BUN 15 mg/dL (7-18); BUN/Creat Ratio 10.6 RATIO (10-20); Calcium,Total 8.7 mg/dL (8.5-10.1); Chloride 100 mmol/L (98-107); Creatinine, Serum 1.41 mg/dL (0.55-1.02); EST Glomerular Filtration Rate 40 mL/min (>60); Est Glom Filt Rate - Afr Amer 49 mL/min (>60); Estimated Creatinine Clearance 40.03 ml/min; Globulin 3.9 g/dL (2.2-4.2); Glucose 327 mg/dL (74-106); Protein, Total 7.3 g/dL (6.4-8.2); Sodium Level 132 mmol/L (136-145)
[2023-11-19] MEDS: Potassium Chloride Oral Tablet 20 MEQ PO (16:12)
[2023-11-19] MEDS: Nystatin Powder 15gm Bottle 1 APPLIC TOPICAL ×2 (16:12→22:14)
[2023-11-19] MEDS: Menthol/Lanolin/Calamine/Znox 113 GM Tube 1 APPLIC TOPICAL ×2 (16:13→22:22)
[2023-11-19] MEDS: Potassium Chloride 10mEq/100mL 10 MEQ/100 ML IV.SOLN. 100 MEQ IV BOLUS ×4 (16:16→19:11)
[2023-11-19] MEDS: Glucerna Shake 120 ML LIQUID PO (16:25)
[2023-11-19 16:34] VITALS: BP 122/72; PULSE 79; RESP 15; TEMP 36.5; O2SAT 99
[2023-11-19 16:55] LABS: Bedside Glucose 170 mg/dL (74-106)
[2023-11-19] MEDS: Acetaminophen 325 MG Tablet 650 MG PO (18:19)
[2023-11-19] MEDS: oxyCODONE 5 MG Tablet PO (18:19)
[2023-11-19 22:10] VITALS: BP 109/61; PULSE 71; RESP 20; TEMP 36.4; O2SAT 99
[2023-11-19] MEDS: LORazepam 0.5 MG Tablet PO (22:13)
[2023-11-19] MEDS: QUEtiapine 25 MG Tablet 37.5 MG PO (22:13)
[2023-11-19] MEDS: Atorvastatin Calcium 40 MG Tablet PO (22:13)
[2023-11-19] MEDS: Ranolazine 500 MG Tablet PO (22:14)
[2023-11-19] MEDS: Mirtazapine 15 MG Tablet 7.5 MG PO (22:14)
[2023-11-19] MEDS: MELATONIN 3 MG TABLET PO (22:31)
[2023-11-19] MEDS: Loperamide 2 MG Capsule PO (22:34)
[2023-11-19 23:19] LABS: Bedside Glucose 77 mg/dL (74-106)
[2023-11-19 23:19] LABS: Bedside Glucose 97 mg/dL (74-106)
[2023-11-20] MEDS: KCL 20MEQ in 0.9% NS 20 MEQ/1,000 ML IV.SOLN. 200 MEQ IV ×4 (03:42→22:29)
[2023-11-20 03:47] VITALS: BMI 35.1
[2023-11-20] MEDS: 0.9% Saline Lock 10 ML Syringe IV (03:47)
[2023-11-20] MEDS: Loperamide 2 MG Capsule PO (03:47)
[2023-11-20] MEDS: Ondansetron 4 MG/2 ML Vial IV (03:47)
[2023-11-20] MEDS: Levothyroxine 175 MCG Tablet PO (03:53)
[2023-11-20 03:55] VITALS: BP 103/57; PULSE 75; RESP 20; TEMP 36.5; O2SAT 98
[2023-11-20] MEDS: Acetaminophen 325 MG Tablet 650 MG PO (04:02)
[2023-11-20] MEDS: Menthol/Lanolin/Calamine/Znox 113 GM Tube 1 APPLIC TOPICAL ×3 (04:07→22:32)
[2023-11-20 07:30] LABS: Absolute Lymphocyte Count 1.94 X10^3/uL (0.83-4.51); Absolute Neutrophil Count 3.7 X10^3/uL (2.0-7.7); Basophil# 0.03 X10^3/uL; Basophil% 0.5 % (0-1); Eosinophil# 0.08 X10^3/uL; Eosinophils% 1.3 % (0-5); Hematocrit 34.5 % (37-47); Hemoglobin 11.4 g/dL (12.0-15.0); Lymphocyte # 1.94 X10^3/ul (0.83-4.51); Lymphocyte % 32.3 % (19-41); Mean Corpuscular Volume 90.8 fL (81-99); Mean Platelet Vol. 10.2 fl (6.2-12.0); Monocyte# 0.23 X10^3/uL; Monocyte% 3.8 % (0-10); NRBC Flagged by Analyzer 0 % (0-5); Neutrophil # 3.72 X10^3/uL (2.7-7.7); Neutrophil % 61.9 % (47-70); Platelet Count 210 K/mm3 (150-450); RBC Distribution Width CV 13.7 % (11.6-14.6); RBC Distribution Width SD 46.1 fl (35.1-43.9)
[2023-11-20 07:59] LABS: Anion Gap 4 (5-15); BUN 13 mg/dL (7-18); BUN/Creat Ratio 10.7 RATIO (10-20); Calcium,Total 8.8 mg/dL (8.5-10.1); Chloride 106 mmol/L (98-107); Creatinine, Serum 1.21 mg/dL (0.55-1.02); EST Glomerular Filtration Rate 48 mL/min (>60); Est Glom Filt Rate - Afr Amer 58 mL/min (>60); Estimated Creatinine Clearance 46.64 ml/min; Glucose 188 mg/dL (74-106); Magnesium 2.1 mg/dL (1.6-2.6); Phosphorus 2.3 mg/dL (2.5-4.9); Potassium 4.2 mmol/L (3.5-5.1); Sodium Level 135 mmol/L (136-145)
--- NOTE | 2023-11-20 08:21 | PN.HOSP_ITS ---
Reason for Visit Reason for Visit: Diagnoses Type 2 diabetes mellitus with hyperglycemia (11/19/23) Subjective Subjective Patient is a 58-year-old lady admitted with progressive generalized weakness. Was found to have hyperglycemia, hyponatremia hypokalemia and acute kidney injury admitted to regular nursing floor for further management Objective Data Objective Data Vital Signs: Vital Signs Temp Pulse Resp BP Pulse Ox O2 Del Method 97.7 F L 75 20 H 103/57 L 98 Room Air 11/20/23 03:55 11/20/23 03:55 11/20/23 03:55 11/20/23 03:55 11/20/23 03:55 11/20/23 03:55 Oxygen Delivery Method Room Air Weight: 81.14 kg Body Mass Index (BMI) 35.1 Intake & Output: Intake and Output for Last 24 Hours 11/18/23 11/19/23 11/20/23 23:59 23:59 23:59 Intake Total 3343.33 / 3343.33 1900 / 1900 Balance 3343.33 / 3343.33 1900 / 1900 Lab / Micro Data 11/20/23 06:31 11/20/23 06:31 Labs: Laboratory Results - last 24 hr 11/19/23 08:24: WBC 11.8 H, RBC 4.58, Hgb 13.7, Hct 40.2, MCV 87.8, MCH 29.9, MCHC 34.1, RDW Std Deviation 43.6, RDW Coeff of Anisa 13.5, Plt Count 306, MPV 10.9, Immature Gran % (Auto) 0.300, Neut % (Auto) 59.6, Lymph % (Auto) 35.7, [place] % (Auto) 3.3, Eos % (Auto) 0.4, Baso % (Auto) 0.7, Absolute Neuts (auto) 7.0, Absolute Lymphs (auto) 4.21, Nucleated RBC % 0, Sodium 127 L, Potassium 3.4 L, Chloride 92 L, Carbon Dioxide 24.0, Anion Gap 11, BUN 16, Creatinine 1.68 H, Estim Creat Clear Calc 34.64, Est GFR (MDRD) Af Amer 40 L, Est GFR (MDRD) Non-Af 33 L, BUN/Creatinine Ratio 9.5 L, Glucose 484 H*, Calcium 9.6, Total Bilirubin 0.60, Direct Bilirubin 0.16, AST 30, ALT 33, Alkaline Phosphatase 73, Total Protein 8.5 H, Albumin 3.9, Globulin 4.6 H, Lipase 39, Acetone Level NEGATIVE 11/19/23 10:11: POC Glucose 356 H 11/19/23 10:14: Urine Color Yellow, Urine Clarity Sl. Cloudy, Urine pH 6.0, Ur Specific [place] 1.015, Urine Protein 30 H, Urine Glucose (UA) 1000 H, Urine Ketones Negative, Urine Occult Blood 10 H, Urine Nitrite Negative, Urine Bilirubin Negative, Urine Urobilinogen Normal, Ur Leukocyte Esterase 100 H, Urine RBC 0-5 SEEN, Urine WBC 10-25 SEEN, Ur Squamous Epith Cells 10-25 SEEN, Urine Bacteria 0 SEEN, Urine Mucus 0 SEEN, Urine Yeast 2+ 11/19/23 11:38: POC Glucose 417 H 11/19/23 14:20: Sodium 132 L, Potassium 3.0 L, Chloride 100, Carbon Dioxide 24.0, Anion Gap 8, BUN 15, Creatinine 1.41 H, Estim Creat Clear Calc 40.03, Est GFR (MDRD) Af Amer 49 L, Est GFR (MDRD) Non-Af 40 L, BUN/Creatinine Ratio 10.6, Glucose 327 H, Calcium 8.7, Total Bilirubin 0.50, AST 24, ALT 27, Alkaline Phosphatase 60, Total Protein 7.3, Albumin 3.4, Globulin 3.9, Albumin/Globulin Ratio 0.9 11/19/23 16:21: POC Glucose 170 H 11/19/23 22:19: POC Glucose 77 11/19/23 23:00: POC Glucose 97 11/20/23 06:31: WBC 6.0, RBC 3.80 L, Hgb 11.4 L, Hct 34.5 L, MCV 90.8, MCH 30.0, MCHC 33.0, RDW Std Deviation 46.1 H, RDW Coeff of Anisa 13.7, Plt Count 210, MPV 10.2, Immature Gran % (Auto) 0.200, Neut % (Auto) 61.9, Lymph % (Auto) 32.3, [place] % (Auto) 3.8, Eos % (Auto) 1.3, Baso % (Auto) 0.5, Absolute Neuts (auto) 3.7, Absolute Lymphs (auto) 1.94, Nucleated RBC % 0, Sodium 135 L, Potassium 4.2, Chloride 106, Carbon Dioxide 25.0, Anion Gap 4 L, BUN 13, Creatinine 1.21 H , Estim Creat Clear Calc 46.64, Est GFR (MDRD) Af Amer 58 L, Est GFR (MDRD) Non- Af 48 L, BUN/Creatinine Ratio 10.7, Glucose 188 H, Calcium 8.8, Phosphorus 2.3 L , Magnesium 2.1 Micro: Microbiology 11/19/23 12:30 Stool Stool Lactoferrin - Final 11/19/23 12:30 Stool Enteric Bacteriology - Final 11/19/23 12:30 Stool Clostridioides difficile (PCR) - Final 11/19/23 12:30 Stool Stool Occult Blood (JOSEFINA) - Final Occult Blood Positive Physical Exam Narrative GENERAL: Significantly flat affect HEENT: Atraumatic; normocephalic EYES; Anicteric, Normal Conjunctiva NECK; supple, normal thyroid, RESPIRATORY: Diminished to auscultation CARDIOVASCULAR: Regular S1 S2, GI: soft, normoactive bowel sounds, : No Renal angle tenderness; EXTREMITIES: No edema, no clubbing, MUSCULOSKELETAL: no muscle wasting NEURO: Awake; no lateralizing signs. SKIN: No Rash PSYCH; Flat affect Assessment & Plan Assessment/Plan (1) Diabetes mellitus with hyperglycemia: PLAN: Plan Patient is a 58-year-old female with history of diabetes mellitus type 2 presenting with progressive generalized weakness with diarrhea 1. Hyperglycemia ? In a patient with diabetes mellitus type 2 who has been noncompliant for the past 4 days. Patient has been admitted to regular nursing floor started on IV fluids. Patient was also started on her long-acting insulin and short acting Premeal insulin in addition to sliding scale insulin ? 11/20/2023; patient glucose levels still remain elevated but much improved compared to admitting levels 2. Diabetes mellitus type 2 ? Patient presented with hyperglycemia management discussed above 3. Hyponatremia ? Due to combination of patient's hyperglycemia as well as hypovolemic hyponatremia from patient diarrhea. Patient started on IV fluid with subsequent monitoring of electrolytes ordered ? 11/20/2023; sodium up to 135 4. Acute gastroenteritis ? Ordered for stool studies ? 11/20/2023 stool studies negative to date 5. Acute kidney injury ? Secondary to dehydration from patient gastroenteritis patient started on IV fluid with subsequent monitoring of electrolytes ordered ? 11/20/2023; creatinine down to 1.21 from 1.68 on admission 6. Hypokalemia ? Corrected per protocol repeat labs ordered for monitoring 7. Acute cystitis ? Present on admission patient started on ceftriaxone cultures sent 8. GERD ? On PPI 9. Dyslipidemia -Patient is on statin therapy, continued at home dose 10. Class II obesity with BMI of 37 ? Complicating care weight loss advised 11. Physical deconditioning - Requested for PT OT eval and social media sr strategy manager to assist with discharge planning 12. Hypothyroidism ? Secondary to previous thyroidectomy patient is on levothyroxine did continue home dose 13. DVT prophylaxis ? SC Lovenox Time spent in the patient's overall evaluation,decision-making process, review of diagnostic data, adjustment of management, discussion with other providers, nursing nursing and ancillary staff involved in patient's care documentation,50 Minutes Charges/Coding Visit Charges Inpatient E&M: 13607 [facility] Hosp L3
[2023-11-20] MEDS: Insulin Lispro 100 UNIT/ML INSULN.PEN SC ×2 (08:31→12:41)
[2023-11-20] MEDS: Insulin Glargine-YFGN 100 UNIT/ML Pen 30 UNIT SC ×2 (08:32→22:35)
[2023-11-20] MEDS: Potassium Chloride Oral Tablet 20 MEQ PO ×2 (08:33→16:40)
[2023-11-20 08:56] LABS: Bedside Glucose 164 mg/dL (74-106)
[2023-11-20 10:48] VITALS: BP 91/58; PULSE 77; RESP 16; TEMP 36.6; O2SAT 94
[2023-11-20] MEDS: Enoxaparin 40 MG/0.4 ML Syringe SC (11:01)
[2023-11-20] MEDS: Nystatin Powder 15gm Bottle 1 APPLIC TOPICAL ×2 (11:02→22:33)
[2023-11-20] MEDS: Midodrine HCl 5 MG Tablet 10 MG PO ×2 (11:03→22:37)
[2023-11-20] MEDS: Ranolazine 500 MG Tablet PO ×2 (11:04→22:36)
[2023-11-20] MEDS: Pantoprazole Sodium 40 MG Tablet PO (11:04)
[2023-11-20] MEDS: Ceftriaxone 1 GM/50 ML BAG IV (11:07)
[2023-11-20 12:12] LABS: Bedside Glucose 269 mg/dL (74-106)
[2023-11-20] MEDS: Insulin Lispro 100 UNIT/ML INSULN.PEN 10 UNIT SC (12:40)
[2023-11-20] MEDS: Glucerna Shake 120 ML LIQUID PO ×2 (12:43→16:42)
[2023-11-20 14:44] VITALS: BP 132/71; PULSE 76; RESP 16; TEMP 36.6; O2SAT 97
--- NOTE | 2023-11-20 14:49 | CASEMGMT ---
RN?CM?VENTILATOR SPECIALIST?CM?to room to meet with patient for initial transition planning/care coordination?assessment.?RN?CM?introduced self and role at [facility].? Pt voices understanding and consents to?assessment?at this time.? Pt resting in bed in no distress at this time.? Pt is A/O at this time and answers all questions appropriately.?? Care providers, pharmacy, and demographics verified/updated at this time. PCP: Dr Lopez Specialists: Dr Renteria-jeison mgnt Preferred Pharmacy: [facility] Insurance: MJ Diaz Prescription Benefit:?yes LNOK: , Laith Living Arrangements: Lives w/her in mobile home w/6-7steps to enter. Pt states her assists her some w/ADL's @ her baseline, but has been need more weak this past week that he has been needing to assist even more. Pt manages her own medications and d/t feeling so poorly this past week she stopped taking her medications, including her insulin. She states she does not think her was aware of this. manages home mgnt tasks. Transportation:? DME: ?States has the following DME:?grab bars, walker, functioning glucometer w/supplies, grab bars ?Pt states no need for further DME at this time.? HHC/SNF: Pt has been to [facility] in the past. No hx of C. Discussed discharge planning. Pt would like to go to [facility] @ discharge and declines wanting list of other SNF options, unless [facility] unable to accept her. Pam CHACKO, made aware. Pt voices no further concerns/needs at this time.? PLAN:??SNF Luis M MORENON?RN?CM
--- NOTE | 2023-11-20 16:21 | CASEMGMT ---
Social Work SW notified that patient is requesting [facility] and declining SNF list. Patient referred to [facility] via [facility]. Pam Cid BUTTONHOLE MAKER, CREW PERSON
[2023-11-20 16:53] LABS: Bedside Glucose 95 mg/dL (74-106)
[2023-11-20] MEDS: LORazepam 0.5 MG Tablet PO (22:32)
[2023-11-20] MEDS: Atorvastatin Calcium 40 MG Tablet PO (22:35)
[2023-11-20] MEDS: QUEtiapine 25 MG Tablet 37.5 MG PO (22:36)
[2023-11-20] MEDS: Mirtazapine 15 MG Tablet 7.5 MG PO (22:37)
[2023-11-20 22:44] VITALS: BP 128/75; PULSE 90; RESP 16; TEMP 36.7; O2SAT 93
[2023-11-20 23:03] LABS: Bedside Glucose 145 mg/dL (74-106)
[2023-11-21] MEDS: KCL 20MEQ in 0.9% NS 20 MEQ/1,000 ML IV.SOLN. 200 MEQ IV (03:59)
[2023-11-21] MEDS: Menthol/Lanolin/Calamine/Znox 113 GM Tube 1 APPLIC TOPICAL ×3 (05:53→20:46)
[2023-11-21] MEDS: Levothyroxine 175 MCG Tablet PO (05:53)
[2023-11-21 06:21] LABS: Absolute Lymphocyte Count 2.03 X10^3/uL (0.83-4.51); Absolute Neutrophil Count 7.3 X10^3/uL (2.0-7.7); Basophil# 0.03 X10^3/uL; Basophil% 0.3 % (0-1); Hemoglobin 11.6 g/dL (12.0-15.0); Lymphocyte # 2.03 X10^3/ul (0.83-4.51); Lymphocyte % 20.7 % (19-41); Mean Corp Hgb Conc 33.1 g/dL (32-36); Mean Corpuscular Hgb 30.4 pg (27.0-32.0); Mean Corpuscular Volume 91.9 fL (81-99); Mean Platelet Vol. 10.2 fl (6.2-12.0); Monocyte# 0.31 X10^3/uL; Monocyte% 3.2 % (0-10); NRBC Flagged by Analyzer 0 % (0-5); Neutrophil % 74.6 % (47-70); Platelet Count 236 K/mm3 (150-450); RBC Distribution Width CV 14.2 % (11.6-14.6); RBC Distribution Width SD 48.1 fl (35.1-43.9); Red Blood Count 3.81 M/mm3 (4.2-5.4); White Blood Count 9.8 K/mm3 (4.4-11.0)
[2023-11-21 06:38] LABS: Anion Gap 4 (5-15); BUN 12 mg/dL (7-18); BUN/Creat Ratio 9.9 RATIO (10-20); Calcium,Total 8.9 mg/dL (8.5-10.1); Chloride 110 mmol/L (98-107); Creatinine, Serum 1.21 mg/dL (0.55-1.02); EST Glomerular Filtration Rate 48 mL/min (>60); Est Glom Filt Rate - Afr Amer 58 mL/min (>60); Estimated Creatinine Clearance 46.64 ml/min; Glucose 153 mg/dL (74-106); Sodium Level 135 mmol/L (136-145)
--- NOTE | 2023-11-21 07:08 | PN.HOSP_ITS ---
Reason for Visit Reason for Visit: Diagnoses Type 2 diabetes mellitus with hyperglycemia (11/19/23) Subjective Subjective Patient seen, admitted to improvement in overall clinical condition. Patient kidney function and glucose levels improving. Urine cultures pending. Objective Data Objective Data Vital Signs: Vital Signs Temp Pulse Resp BP Pulse Ox O2 Del Method 98.0 F 90 16 128/75 H 93 Room Air 11/20/23 22:44 11/20/23 22:44 11/20/23 22:44 11/20/23 22:44 11/20/23 22:44 11/20/23 23:00 Oxygen Delivery Method Room Air Weight: 81.14 kg Body Mass Index (BMI) 35.1 Intake & Output: Intake and Output for Last 24 Hours 11/19/23 11/20/23 11/21/23 23:59 23:59 23:59 Intake Total 3343.33 / 3343.33 4950 / 4950 1000 / 1000 Balance 3343.33 / 3343.33 4950 / 4950 1000 / 1000 Lab / Micro Data 11/21/23 05:55 11/21/23 05:55 Labs: Laboratory Results - last 24 hr 11/20/23 06:31: WBC 6.0, RBC 3.80 L, Hgb 11.4 L, Hct 34.5 L, MCV 90.8, MCH 30.0, MCHC 33.0, RDW Std Deviation 46.1 H, RDW Coeff of Anisa 13.7, Plt Count 210, MPV 10.2, Immature Gran % (Auto) 0.200, Neut % (Auto) 61.9, Lymph % (Auto) 32.3, [place] % (Auto) 3.8, Eos % (Auto) 1.3, Baso % (Auto) 0.5, Absolute Neuts (auto) 3.7, Absolute Lymphs (auto) 1.94, Nucleated RBC % 0, Sodium 135 L, Potassium 4.2, Chloride 106, Carbon Dioxide 25.0, Anion Gap 4 L, BUN 13, Creatinine 1.21 H , Estim Creat Clear Calc 46.64, Est GFR (MDRD) Af Amer 58 L, Est GFR (MDRD) Non- Af 48 L, BUN/Creatinine Ratio 10.7, Glucose 188 H, Calcium 8.8, Phosphorus 2.3 L , Magnesium 2.1 11/20/23 08:29: POC Glucose 164 H 11/20/23 11:54: POC Glucose 269 H 11/20/23 16:34: POC Glucose 95 11/20/23 22:31: POC Glucose 145 H 11/21/23 05:55: WBC 9.8, RBC 3.81 L, Hgb 11.6 L, Hct 35.0 L, MCV 91.9, MCH 30.4, MCHC 33.1, RDW Std Deviation 48.1 H, RDW Coeff of Anisa 14.2, Plt Count 236, MPV 10.2, Immature Gran % (Auto) 0.200, Neut % (Auto) 74.6 H, Lymph % (Auto) 20.7, [place] % (Auto) 3.2, Eos % (Auto) 1.0, Baso % (Auto) 0.3, Absolute Neuts (auto) 7.3, Absolute Lymphs (auto) 2.03, Nucleated RBC % 0, Sodium 135 L, Potassium 5.0, Chloride 110 H, Carbon Dioxide 21.0, Anion Gap 4 L, BUN 12, Creatinine 1.21 H, Estim Creat Clear Calc 46.64, Est GFR (MDRD) Af Amer 58 L, Est GFR (MDRD) No n-Af 48 L, BUN/Creatinine Ratio 9.9 L, Glucose 153 H, Calcium 8.9 Micro: Microbiology 11/19/23 12:30 Stool Stool Lactoferrin - Final 11/19/23 12:30 Stool Enteric Bacteriology - Final 11/19/23 12:30 Stool Clostridioides difficile (PCR) - Final 11/19/23 12:30 Stool Stool Occult Blood (JOSEFINA) - Final Occult Blood Positive Physical Exam Narrative GENERAL: Significantly flat affect HEENT: Atraumatic; normocephalic EYES; Anicteric, Normal Conjunctiva NECK; supple, normal thyroid, RESPIRATORY: Diminished to auscultation CARDIOVASCULAR: Regular S1 S2, GI: soft, normoactive bowel sounds, : No Renal angle tenderness; EXTREMITIES: edema, no clubbing, MUSCULOSKELETAL: no muscle wasting NEURO: Awake; no lateralizing signs. SKIN: No Rash PSYCH; Flat affect Assessment & Plan Assessment/Plan (1) Diabetes mellitus with hyperglycemia: PLAN: Plan Patient is a 58-year-old female with history of diabetes mellitus type 2 presenting with progressive generalized weakness with diarrhea 1. Hyperglycemia ? In a patient with diabetes mellitus type 2 who has been noncompliant for the past 4 days. Patient has been admitted to regular nursing floor started on IV fluids. Patient was also started on her long-acting insulin and short acting Premeal insulin in addition to sliding scale insulin ? 11/20/2023; patient glucose levels still remain elevated but much improved compared to admitting levels ? 11/21/2023 discontinued patient IV fluids did encourage oral intake. 2. Diabetes mellitus type 2 ? Patient presented with hyperglycemia management discussed above 3. Hyponatremia ? Due to combination of patient's hyperglycemia as well as hypovolemic hyponatremia from patient diarrhea. Patient started on IV fluid with subsequent monitoring of electrolytes ordered ? 11/20/2023; sodium up to 135 4. Acute gastroenteritis ? Ordered for stool studies ? 11/20/2023 stool studies negative to date 5. Acute kidney injury ? Secondary to dehydration from patient gastroenteritis patient started on IV fluid with subsequent monitoring of electrolytes ordered ? 11/20/2023; creatinine down to 1.21 from 1.68 on admission 6. Hypokalemia ? Corrected per protocol repeat labs ordered for monitoring 7. Acute cystitis ? Present on admission patient started on ceftriaxone cultures sent 8. GERD ? On PPI 9. Dyslipidemia -Patient is on statin therapy, continued at home dose 10. Class II obesity with BMI of 37 ? Complicating care weight loss advised 11. Physical deconditioning - Requested for PT OT eval and case management social worker to assist with discharge planning ? 11/21/2023; Case discussed with case management plans for patient to be discharged to halfway facility 12. Hypothyroidism ? Secondary to previous thyroidectomy patient is on levothyroxine did continue home dose 13. DVT prophylaxis ? SC Lovenox Time spent in the patient's overall evaluation,decision-making process, review of diagnostic data, adjustment of management, discussion with other providers, nursing nursing and ancillary staff involved in patient's care documentation, 35 Minutes Charges/Coding Visit Charges Inpatient E&M: 52020 Subs Hosp L2
[2023-11-21 08:58] VITALS: BP 101/49; PULSE 84; RESP 16; TEMP 36.7; O2SAT 95
[2023-11-21] MEDS: Insulin Glargine-YFGN 100 UNIT/ML Pen 30 UNIT SC (09:02)
[2023-11-21] MEDS: Insulin Lispro 100 UNIT/ML INSULN.PEN 10 UNIT SC (09:03)
[2023-11-21] MEDS: Potassium Chloride Oral Tablet 20 MEQ PO ×2 (09:04→17:13)
[2023-11-21] MEDS: Nystatin Powder 15gm Bottle 1 APPLIC TOPICAL ×2 (09:04→20:46)
[2023-11-21] MEDS: Midodrine HCl 5 MG Tablet 10 MG PO ×2 (09:05→20:47)
[2023-11-21] MEDS: Ranolazine 500 MG Tablet PO ×2 (09:05→20:45)
[2023-11-21 09:06] VITALS: PULSE 84
[2023-11-21] MEDS: Metoprolol(XL)Succ 25 MG Tablet PO (09:06)
[2023-11-21] MEDS: Pantoprazole Sodium 40 MG Tablet PO (09:06)
[2023-11-21 09:10] LABS: Bedside Glucose 135 mg/dL (74-106)
[2023-11-21] MEDS: Ceftriaxone 1 GM/50 ML BAG IV (09:10)
[2023-11-21] MEDS: Glucerna Shake 120 ML LIQUID PO ×3 (09:10→17:16)
[2023-11-21] MEDS: Enoxaparin 40 MG/0.4 ML Syringe SC (11:41)
[2023-11-21 11:49] LABS: Bedside Glucose 91 mg/dL (74-106)
[2023-11-21 15:25] VITALS: BP 108/66; PULSE 66; RESP 16; TEMP 36.6; O2SAT 95
[2023-11-21 17:30] LABS: Bedside Glucose 66 mg/dL (74-106)
[2023-11-21] MEDS: QUEtiapine 25 MG Tablet 37.5 MG PO (20:45)
[2023-11-21] MEDS: Atorvastatin Calcium 40 MG Tablet PO (20:46)
[2023-11-21] MEDS: Mirtazapine 15 MG Tablet 7.5 MG PO (20:48)
[2023-11-21 21:00] VITALS: BP 99/59; PULSE 70; RESP 18; TEMP 36.8; O2SAT 94
[2023-11-21 21:18] LABS: Bedside Glucose 89 mg/dL (74-106)
[2023-11-22] MEDS: Menthol/Lanolin/Calamine/Znox 113 GM Tube 1 APPLIC TOPICAL ×2 (05:21→21:41)
[2023-11-22] MEDS: Levothyroxine 175 MCG Tablet PO (05:22)
[2023-11-22 05:23] VITALS: BP 93/58; PULSE 58; RESP 16; TEMP 36.7; O2SAT 93
[2023-11-22 05:35] LABS: Absolute Lymphocyte Count 2.87 X10^3/uL (0.83-4.51); Absolute Neutrophil Count 3.6 X10^3/uL (2.0-7.7); Basophil# 0.04 X10^3/uL; Basophil% 0.6 % (0-1); Eosinophil# 0.13 X10^3/uL; Eosinophils% 1.9 % (0-5); Hematocrit 33.8 % (37-47); Lymphocyte # 2.87 X10^3/ul (0.83-4.51); Lymphocyte % 41.6 % (19-41); Mean Corp Hgb Conc 32.5 g/dL (32-36); Mean Corpuscular Hgb 29.7 pg (27.0-32.0); Mean Corpuscular Volume 91.4 fL (81-99); Mean Platelet Vol. 10.2 fl (6.2-12.0); Monocyte# 0.28 X10^3/uL; Monocyte% 4.1 % (0-10); NRBC Flagged by Analyzer 0 % (0-5); Neutrophil # 3.55 X10^3/uL (2.7-7.7); Neutrophil % 51.4 % (47-70); Platelet Count 260 K/mm3 (150-450); RBC Distribution Width CV 14.6 % (11.6-14.6); RBC Distribution Width SD 48.6 fl (35.1-43.9); White Blood Count 6.9 K/mm3 (4.4-11.0)
[2023-11-22 05:49] VITALS: BMI 37.3
[2023-11-22 06:05] LABS: Anion Gap 5 (5-15); BUN 12 mg/dL (7-18); BUN/Creat Ratio 7.4 RATIO (10-20); Calcium,Total 9.1 mg/dL (8.5-10.1); Chloride 110 mmol/L (98-107); Creatinine, Serum 1.62 mg/dL (0.55-1.02); EST Glomerular Filtration Rate 34 mL/min (>60); Est Glom Filt Rate - Afr Amer 42 mL/min (>60); Estimated Creatinine Clearance 36.04 ml/min; Glucose 56 mg/dL (74-106); Potassium 4.2 mmol/L (3.5-5.1); Sodium Level 138 mmol/L (136-145)
[2023-11-22 07:40] LABS: Bedside Glucose 115 mg/dL (74-106)
[2023-11-22 08:05] VITALS: BP 135/83; PULSE 67; RESP 18; TEMP 36.3; O2SAT 100
[2023-11-22 08:18] VITALS: PULSE 67
[2023-11-22] MEDS: Metoprolol(XL)Succ 25 MG Tablet PO (08:18)
[2023-11-22] MEDS: Influenza Virus Vac Quad 23-24 60 MCG/0.5 ML SYRINGE IM (08:18)
[2023-11-22] MEDS: Potassium Chloride Oral Tablet 20 MEQ PO ×2 (08:20→16:20)
[2023-11-22] MEDS: Nystatin Powder 15gm Bottle 1 APPLIC TOPICAL ×2 (08:20→21:41)
[2023-11-22] MEDS: Ranolazine 500 MG Tablet PO ×2 (08:21→21:52)
[2023-11-22] MEDS: Midodrine HCl 5 MG Tablet 10 MG PO ×2 (08:21→21:50)
[2023-11-22] MEDS: Pantoprazole Sodium 40 MG Tablet PO (08:22)
[2023-11-22] MEDS: Enoxaparin 40 MG/0.4 ML Syringe SC (08:23)
[2023-11-22] MEDS: Ceftriaxone 1 GM/50 ML BAG IV (09:43)
[2023-11-22] MEDS: 0.9% Saline Lock 10 ML Syringe IV ×3 (09:44→21:40)
[2023-11-22] MEDS: Insulin Glargine-YFGN 100 UNIT/ML Pen 20 UNIT SC ×2 (10:50→21:54)
[2023-11-22 11:24] LABS: Bedside Glucose 127 mg/dL (74-106)
--- NOTE | 2023-11-22 12:28 | CASEMGMT ---
Addendum entered by Rachel Bueno 11/22/23 12:40: Asked [facility] to start precert. Rachel Bueno, Discharge Planning Asst. Original Note: Discharge Planning [facility] can accept patient but they do not have a private room available. Notified patient and she is fine with this. W and SW updated. Rachel Bueno, Discharge Planning
[2023-11-22 14:19] VITALS: BP 124/76; PULSE 69; RESP 18; TEMP 36.6; O2SAT 97
[2023-11-22] MEDS: Ondansetron 4 MG/2 ML Vial IV (14:23)
[2023-11-22] MEDS: Acetaminophen 325 MG Tablet 650 MG PO (14:28)
--- NOTE | 2023-11-22 16:00 | CASEMGMT ---
Social Work Patient can be accepted to [facility], pending insurance authorization, which was started today. 7000 convalescent exemption form started in [facility] system. Plan: short term, skilled care at [facility], pending insurance authorization. -ARCADIO Saez
[2023-11-22] MEDS: Insulin Lispro 100 UNIT/ML INSULN.PEN SC ×2 (16:20→21:54)
[2023-11-22 16:43] LABS: Bedside Glucose 178 mg/dL (74-106)
--- NOTE | 2023-11-22 17:02 | PCM.PN.HOSP ---
Reason for Visit Reason for Visit: Diagnoses Type 2 diabetes mellitus with hyperglycemia (11/19/23) Subjective Subjective Patient was seen and examined today, we are currently waiting for approval for the patient to go to [facility] for short-term rehab services. Objective Data Objective Data Vital Signs: Vital Signs Temp Pulse Resp BP Pulse Ox O2 Del Method 97.9 F 69 18 124/76 H 97 Room Air 11/22/23 14:19 11/22/23 14:19 11/22/23 14:19 11/22/23 14:19 11/22/23 14:19 11/22/23 14:19 Oxygen Delivery Method Room Air Weight: 86.3 kg Body Mass Index (BMI) 37.3 Intake & Output: Intake and Output for Last 24 Hours 11/20/23 11/21/23 11/22/23 23:59 23:59 23:59 Intake Total 4950 / 4950 2029 50 / 50 Output Total 600 / 600 Balance 4950 / 4950 2029 -550 / -550 Lab / Micro Data 11/22/23 05:00 11/22/23 05:00 Labs: Laboratory Results - last 24 hr 11/21/23 17:09: POC Glucose 66 L 11/21/23 20:44: POC Glucose 89 11/22/23 05:00: WBC 6.9, RBC 3.70 L, Hgb 11.0 L, Hct 33.8 L, MCV 91.4, MCH 29.7, MCHC 32.5, RDW Std Deviation 48.6 H, RDW Coeff of Anisa 14.6, Plt Count 260, MPV 10.2, Immature Gran % (Auto) 0.400, Neut % (Auto) 51.4, Lymph % (Auto) 41.6 H, [place] % (Auto) 4.1, Eos % (Auto) 1.9, Baso % (Auto) 0.6, Absolute Neuts (auto) 3.6, Absolute Lymphs (auto) 2.87, Nucleated RBC % 0, Sodium 138, Potassium 4.2, Chloride 110 H, Carbon Dioxide 23.0, Anion Gap 5, BUN 12, Creatinine 1.62 H, Estim Creat Clear Calc 36.04, Est GFR (MDRD) Af Amer 42 L, Est GFR (MDRD) Non-Af 34 L, BUN/Creatinine Ratio 7.4 L, Glucose 56 L, Calcium 9.1 11/22/23 07:23: POC Glucose 115 H 11/22/23 11:07: POC Glucose 127 H 11/22/23 16:18: POC Glucose 178 H Micro: Microbiology 11/20/23 06:35 Urine, Clean Catch Urine Culture - Preliminary GPC Poss Enterococcus sp 11/19/23 12:30 Stool Stool Lactoferrin - Final 11/19/23 12:30 Stool Enteric Bacteriology - Final 11/19/23 12:30 Stool Clostridioides difficile (PCR) - Final 11/19/23 12:30 Stool Stool Occult Blood (JOSEFINA) - Final Occult Blood Positive Physical Exam Const alert, oriented x3 and no apparent distress General Appearance: cooperative, well kempt and well developed Orientation / Consciousness: awake, oriented to person, oriented to place and oriented to time HEENT normocephalic, head/scalp atraumatic and moist oral mucous membranes Eyes PERRL, EOMs intact bilaterally and conjunctivae normal Neck supple, no JVD, thyroid normal and no carotid bruits General: trachea midline Resp normal respiratory effort, no retractions, no use of accessory muscles and clear to auscultation bilaterally Auscultation: Negative for rales, rhonchi or wheezes Cardio regular rate, regular rhythm, S1 normal heart sound, S2 normal heart sound, no murmurs, no rub and no gallops GI normal to inspection, nondistended, normoactive bowel sounds, soft to palpation, non-tender and non-distended Extremity no clubbing, cyanosis or edema Skin no rashes or lesions noted General Skin Exam: no breakdown Neuro oriented x3, CN's II-XII intact bilaterally, moves all extremities, no focal motor deficits and no sensory deficits noted Sensorium / Orientation: awake and alert Speech: speech normal Psych affect normal Assessment & Plan Assessment/Plan (1) Diabetes mellitus with hyperglycemia: PLAN: Plan 1. Type 2 diabetes-uncontrolled, patient will remain on her current insulin dosage, blood sugars will be monitored #2 hyponatremia-corrected at this time, labs will be monitored as needed #3 elevated creatinine-this is most likely secondary to chronic kidney disease type IIIb from type 2 diabetes-labs will be monitored #4 severe deconditioning-PT and OT will continue to see the patient, she will be placed short-term in a alf facility #5 diarrhea-probably secondary to gastroenteritis, resolved at this time Total clinical time spent by myself addressing the patient's medical issues, reviewing all of her data, and collaborating with patient's care team: 25 minutes Charges/Coding Visit Charges Inpatient E&M: 94180 Subs Hosp L1
[2023-11-22 21:37] VITALS: BP 126/76; PULSE 67; RESP 18; TEMP 36.8; O2SAT 96
[2023-11-22] MEDS: LORazepam 0.5 MG Tablet PO (21:48)
[2023-11-22] MEDS: QUEtiapine 25 MG Tablet 37.5 MG PO (21:50)
[2023-11-22] MEDS: Mirtazapine 15 MG Tablet 7.5 MG PO (21:52)
[2023-11-22] MEDS: Atorvastatin Calcium 40 MG Tablet PO (21:52)
[2023-11-22 22:32] LABS: Bedside Glucose 203 mg/dL (74-106)
[2023-11-23 00:41] VITALS: BP 133/76; PULSE 65; RESP 18; TEMP 36.7; O2SAT 95
[2023-11-23 03:54] LABS: Bedside Glucose 160 mg/dL (74-106)
[2023-11-23 06:00] VITALS: BMI 37.4
[2023-11-23] MEDS: Menthol/Lanolin/Calamine/Znox 113 GM Tube 1 APPLIC TOPICAL ×3 (06:17→21:41)
[2023-11-23 06:18] VITALS: BP 108/58; PULSE 64; RESP 18; TEMP 36.6; O2SAT 98
[2023-11-23] MEDS: Acetaminophen 325 MG Tablet 650 MG PO (06:25)
[2023-11-23] MEDS: Levothyroxine 175 MCG Tablet PO (06:25)
[2023-11-23 06:45] LABS: Bedside Glucose 128 mg/dL (74-106)
[2023-11-23 07:59] LABS: Anion Gap 5 (5-15); BUN 14 mg/dL (7-18); BUN/Creat Ratio 8.1 RATIO (10-20); Calcium,Total 9.4 mg/dL (8.5-10.1); Chloride 106 mmol/L (98-107); Creatinine, Serum 1.72 mg/dL (0.55-1.02); EST Glomerular Filtration Rate 32 mL/min (>60); Est Glom Filt Rate - Afr Amer 39 mL/min (>60); Estimated Creatinine Clearance 33.99 ml/min; Glucose 139 mg/dL (74-106); Potassium 4.4 mmol/L (3.5-5.1); Sodium Level 136 mmol/L (136-145)
[2023-11-23 08:24] VITALS: BP 97/66; PULSE 66; RESP 14; TEMP 36.8; O2SAT 94
[2023-11-23] MEDS: Enoxaparin 40 MG/0.4 ML Syringe SC (08:47)
[2023-11-23] MEDS: Nystatin Powder 15gm Bottle 1 APPLIC TOPICAL ×2 (08:47→21:41)
[2023-11-23] MEDS: Potassium Chloride Oral Tablet 20 MEQ PO ×2 (08:47→16:32)
[2023-11-23] MEDS: Midodrine HCl 5 MG Tablet 10 MG PO ×2 (08:47→21:10)
[2023-11-23] MEDS: Pantoprazole Sodium 40 MG Tablet PO (08:47)
[2023-11-23] MEDS: Insulin Glargine-YFGN 100 UNIT/ML Pen 20 UNIT SC (08:48)
[2023-11-23] MEDS: Ranolazine 500 MG Tablet PO ×2 (08:48→21:10)
[2023-11-23 08:49] VITALS: PULSE 66
[2023-11-23] MEDS: Metoprolol(XL)Succ 25 MG Tablet PO (08:49)
[2023-11-23] MEDS: 0.9% Saline Lock 10 ML Syringe IV ×2 (09:24→21:10)
[2023-11-23] MEDS: Ceftriaxone 1 GM/50 ML BAG IV (09:24)
[2023-11-23] MEDS: Insulin Lispro 100 UNIT/ML INSULN.PEN SC ×3 (11:34→16:33)
[2023-11-23 11:54] LABS: Bedside Glucose 193 mg/dL (74-106)
[2023-11-23 13:46] VITALS: BP 122/58; PULSE 63; RESP 14; TEMP 36.5; O2SAT 93
--- NOTE | 2023-11-23 15:03 | CASEMGMT ---
Social Work SW did speak w/pt, let her know that [facility] did accept and we are waiting for precert. SW let her know we may not hear back today, it may be tomorrow. Pt states understanding. Plan continues to be for pt to go to [facility], skilled, pending precert. MARY Macias
[2023-11-23 16:53] LABS: Bedside Glucose 172 mg/dL (74-106)
--- NOTE | 2023-11-23 19:16 | PN.HOSP_ITS ---
Reason for Visit Reason for Visit: Diagnoses Type 2 diabetes mellitus with hyperglycemia (11/19/23) Subjective Subjective Patient was seen and examined today, we are awaiting word on whether she will be able to go to a skilled care facility for rehab services. Patient's insulin was adjusted today due to lower blood sugars. Objective Data Objective Data Vital Signs: Vital Signs Temp Pulse Resp BP Pulse Ox O2 Del Method 97.7 F L 63 14 122/58 H 93 Room Air 11/23/23 13:46 11/23/23 13:46 11/23/23 13:46 11/23/23 13:46 11/23/23 13:46 11/23/23 13:46 Oxygen Delivery Method Room Air Weight: 86.5 kg Body Mass Index (BMI) 37.4 Intake & Output: Intake and Output for Last 24 Hours 11/21/23 11/22/23 11/23/23 23:59 23:59 23:59 Intake Total 2029 350 / 350 150 / 150 Output Total 600 / 600 1800 / 1800 Balance 2029 -250 / -250 -1650 / -1650 Lab / Micro Data 11/22/23 05:00 11/23/23 06:39 Labs: Laboratory Results - last 24 hr 11/22/23 21:39: POC Glucose 203 H 11/23/23 03:36: POC Glucose 160 H 11/23/23 06:21: POC Glucose 128 H 11/23/23 06:39: Sodium 136, Potassium 4.4, Chloride 106, Carbon Dioxide 25.0, Anion Gap 5, BUN 14, Creatinine 1.72 H, Estim Creat Clear Calc 33.99, Est GFR (MDRD) Af Amer 39 L, Est GFR (MDRD) Non-Af 32 L, BUN/Creatinine Ratio 8.1 L, Glucose 139 H, Calcium 9.4 11/23/23 11:32: POC Glucose 193 H 11/23/23 16:29: POC Glucose 172 H Micro: Microbiology 11/20/23 06:35 Urine, Clean Catch Urine Culture - Final Enterococcus faecalis 11/19/23 12:30 Stool Stool Lactoferrin - Final 11/19/23 12:30 Stool Enteric Bacteriology - Final 11/19/23 12:30 Stool Clostridioides difficile (PCR) - Final 11/19/23 12:30 Stool Stool Occult Blood (JOSEFINA) - Final Occult Blood Positive Physical Exam Narrative alert, oriented x3 and no apparent distress General Appearance: cooperative, well kempt and well developed Orientation / Consciousness: awake, oriented to person, oriented to place and oriented to time HEENT normocephalic, head/scalp atraumatic and moist oral mucous membranes Eyes PERRL, EOMs intact bilaterally and conjunctivae normal Neck supple, no JVD, thyroid normal and no carotid bruits General: trachea midline Resp normal respiratory effort, no retractions, no use of accessory muscles and clear to auscultation bilaterally Auscultation: Negative for rales, rhonchi or wheezes Cardio regular rate, regular rhythm, S1 normal heart sound, S2 normal heart sound, no murmurs, no rub and no gallops GI normal to inspection, nondistended, normoactive bowel sounds, soft to palpation, non-tender and non-distended Extremity no clubbing, cyanosis or edema Skin no rashes or lesions noted General Skin Exam: no breakdown Neuro oriented x3, CN's II-XII intact bilaterally, moves all extremities, no focal motor deficits and no sensory deficits noted Sensorium / Orientation: awake and alert Speech: speech normal Psych affect normal Assessment & Plan Assessment/Plan (1) Diabetes mellitus with hyperglycemia: PLAN: Plan 1. Type 2 diabetes-uncontrolled, again patient's insulin was adjusted today, she will remain on sliding scale insulin and her adjusted insulin dosages #2 hyponatremia-corrected at this time, labs will be monitored as needed #3 elevated creatinine-this is most likely secondary to chronic kidney disease type IIIb from type 2 diabetes-labs will be monitored as needed #4 severe deconditioning-PT and OT will continue to see the patient, she will be placed short-term in a detention facility #5 diarrhea-probably secondary to gastroenteritis, resolved at this time Total clinical time spent by myself addressing the patient's medical issues, reviewing all of her data, and collaborating with patient's care team: 25 minutes Charges/Coding Visit Charges Inpatient E&M: 16903 [facility] Hosp L1
[2023-11-23 21:03] VITALS: BP 107/60; PULSE 69; RESP 18; TEMP 36.6; O2SAT 94
[2023-11-23] MEDS: Mirtazapine 15 MG Tablet 7.5 MG PO (21:09)
[2023-11-23] MEDS: QUEtiapine 25 MG Tablet 37.5 MG PO (21:09)
[2023-11-23] MEDS: Atorvastatin Calcium 40 MG Tablet PO (21:10)
[2023-11-23 21:29] LABS: Bedside Glucose 108 mg/dL (74-106)
[2023-11-24 05:31] VITALS: BP 110/64; PULSE 72; RESP 18; TEMP 36.9; O2SAT 97
[2023-11-24] MEDS: Levothyroxine 175 MCG Tablet PO (05:40)
[2023-11-24] MEDS: Menthol/Lanolin/Calamine/Znox 113 GM Tube 1 APPLIC TOPICAL ×2 (05:40→13:40)
[2023-11-24] MEDS: Acetaminophen 325 MG Tablet 650 MG PO (05:40)
[2023-11-24 06:00] VITALS: BMI 35.9
[2023-11-24 06:56] LABS: Bedside Glucose 129 mg/dL (74-106)
[2023-11-24 09:17] VITALS: BP 89/53; PULSE 72; RESP 16; TEMP 36.9; O2SAT 96
[2023-11-24] MEDS: Enoxaparin 40 MG/0.4 ML Syringe SC (09:20)
[2023-11-24] MEDS: Midodrine HCl 5 MG Tablet 10 MG PO (09:21)
[2023-11-24] MEDS: Ranolazine 500 MG Tablet PO (09:21)
[2023-11-24 09:23] VITALS: BP 89/53; PULSE 72
[2023-11-24] MEDS: Potassium Chloride Oral Tablet 20 MEQ PO (09:23)
[2023-11-24] MEDS: Pantoprazole Sodium 40 MG Tablet PO (09:23)
[2023-11-24] MEDS: Insulin Glargine-YFGN 100 UNIT/ML Pen 15 UNIT SC (09:26)
[2023-11-24] MEDS: Insulin Lispro 100 UNIT/ML INSULN.PEN SC ×3 (09:27→10:59)
[2023-11-24] MEDS: Nystatin Powder 15gm Bottle 1 APPLIC TOPICAL (09:27)
[2023-11-24 10:47] VITALS: BP 120/64; PULSE 67; RESP 16; TEMP 37; O2SAT 97
[2023-11-24] MEDS: LORazepam 0.5 MG Tablet PO (10:53)
--- NOTE | 2023-11-24 11:50 | CASEMGMT ---
Discharge Planning [facility] has obtained auth. SW updated. Rachel Bueno, Discharge Planning Asst.
[2023-11-24 12:34] LABS: Bedside Glucose 193 mg/dL (74-106)
--- NOTE | 2023-11-24 14:04 | TREXTCAR_ITS ---
Diet Diet Order/Speech Therapy: 11/19/23 11:02 Diet: Consistent Carb - Calorie Controlled Food consistency:: Regular Liquid Consistency:: Regular/Thin Dietary Modifications:: Cardiac / Heart Healthy How many daily calories?: 1800 calorie Routine Orders/Code Status Routine Lab Work: - (Fingerstick blood sugars AC nightly, Humalog subcu sliding scale: 200-250-5 units, 251-300-8 units, 301-350-12 units) Code Status: Full Code Wound(s) lt lateral pinky toe: Wound Type: scab rt butt cheek: Wound Type: open blisters groin fold: Wound Type: small open area Therapies Weight Bearing: Full weight bearing Physical Therapy: Eval and Treat Occupational Therapy: Eval and Treat Problem/Diagnosis (1) Diabetes mellitus with hyperglycemia: Status: Acute Code(s): E11.65 - Type 2 diabetes mellitus with hyperglycemia Plan 1. Type 2 diabetes-uncontrolled, again patient's insulin was adjusted today, she will remain on sliding scale insulin and her adjusted insulin dosages #2 hyponatremia-corrected at this time, labs will be monitored as needed #3 elevated creatinine-this is most likely secondary to chronic kidney disease type IIIb from type 2 diabetes-labs will be monitored as needed #4 severe deconditioning-PT and OT will continue to see the patient, she will be placed short-term in a residential facility #5 diarrhea-probably secondary to gastroenteritis, resolved at this time Total clinical time spent by myself addressing the patient's medical issues, reviewing all of her data, and collaborating with patient's care team: 25 minutes Allergies/Procedures Done in Hospital Allergies celecoxib [From Celebrex] Allergy (Verified 06/10/23 14:56) Itching ciprofloxacin [From Cipro] Allergy (Verified 06/10/23 14:56) Swelling ciprofloxacin HCl [From Cipro] Allergy (Verified 06/10/23 14:56) Swelling codeine Allergy (Verified 06/10/23 14:56) Hives ibuprofen Allergy (Verified 06/10/23 14:56) Hives naproxen Allergy (Verified 06/10/23 14:56) Hives Penicillins Allergy (Verified 06/10/23 14:56) Hives tramadol HCl [From Ultram] Allergy (Verified 06/10/23 14:56) Hives ketorolac [From Toradol] Adverse Reaction (Verified 06/10/23 14:56) Swelling Procedures: None Type of Care/Length of Stay Estimated LOS: Convalescent Care Less Than 30 days Type of Care Needed: Skilled Rehab Potential: Fair Prognosis: Fair Additional Orders/Day of Discharge H&P will serve as current which was dated: 11/19/23 Day of Discharge: 11/24/23 Dietary and Speech Recommendations Dietitian Recommendations/Changes: Continue 1800 calorie/consistent carbohydrate; cardiac diet. Will d/c 4oz Glucerna Shake TID w/ meals. ONS as needed if PO fails. Discharge Plan Admission Admit Date/Time: 11/19/23 10:26 Primary Reason for Your Visit: Debility, uncontrolled type 2 diabetes Attending Provider: Paresh Hernandez Primary Care Provider: Jarred Lopez Consulting Providers: John Shaw Discharge Orders/Prescriptions Prescriptions: New acetaminophen 325 mg Tablet 650 mg PO Q6H PRN PRN (Reason: Pain 1-10 Or Fever >100.7) Qty: 0 0RF lorazepam 0.5 mg Tablet 0.5 mg PO Q12H Qty: 10 0RF insulin glargine-yfgn 100 unit/mL (3 mL) Insulin Pen 15 unit subcut QHS Qty: 0 0RF insulin glargine-yfgn 100 unit/mL (3 mL) Insulin Pen 15 unit subcut BREAKFAST Qty: 0 0RF melatonin 3 mg Tablet 3 mg PO QHS PRN PRN (Reason: Insomnia) Qty: 0 0RF potassium chloride 20 mEq Tablet,Er Particles/Crystals 20 meq PO 1XD Qty: 0 0RF nystatin [Nyamyc] 100,000 unit/gram Powder 1 applic topical BID Qty: 0 0RF Protocol: *Topical Application Instructions APPLICATION INSTRUCTIONS: under bilat breasts/groin insulin lispro [Humalog KwikPen Insulin] 100 unit/mL Insulin Pen 5 unit subcut BREAKFAST Qty: 0 0RF insulin lispro [Humalog KwikPen Insulin] 100 unit/mL Insulin Pen 5 unit subcut DINNER Qty: 0 0RF insulin lispro [Humalog KwikPen Insulin] 100 unit/mL Insulin Pen 5 unit subcut LUNCH Qty: 0 0RF menthol-zinc oxide [Calmoseptine] 0.44-20.6 % Ointment 1 applic topical TID Qty: 0 0RF Protocol: *Topical Application Instructions APPLICATION INSTRUCTIONS: bilat buttocks Continued levothyroxine 175 mcg capsule 175 mcg PO DAILY pantoprazole 40 mg tablet,delayed release (DR/EC) 40 mg PO DAILY ranolazine 500 mg tablet extended release 12 hr 500 mg PO BID Qty: 60 11RF mirtazapine 15 mg tablet 7.5 mg PO QHS midodrine 10 mg tablet 10 mg PO BID rizatriptan 10 tablet 10 mg PO PRN Patient Comments: metoprolol succinate 25 mg Tablet Extended Release 24 Hr 25 mg PO DAILY Qty: 30 2RF atorvastatin 40 mg tablet 40 mg PO QHS Qty: 30 2RF quetiapine 25 mg tablet 37.5 mg PO QHS fenofibrate 50 mg Capsule 50 mg PO QHS Discontinued dextrose [Glutose-15] 40 % gel 15 g PO Q15M PRN (Reason: Blood Sugar) Rx Instructions: until symptoms of low blood sugar are controlled nitroglycerin 0.4 mg tablet, sublingual 0.4 mg sublingual Q5-15M (DME) pen needle,diabetic, disp unit 29 gauge x 1/2 needle See Rx Instructions .ROUTE .MEDSUPPLY Qty: 100 0RF Rx Instructions: As directed insulin lispro 100 unit/mL insulin pen 15 unit SUBCUT TID Patient Comments: PT UNSURE OF HOW MANY UNITS Rx Instructions: with meals insulin glargine [Lantus Solostar U-100 Insulin] 100 unit/mL (3 mL) insulin pen 30 unit SUBCUT QHS Trulicity 3 mg/0.5 mL pen injector 3 mg SUBCUT MO loperamide [Anti-Diarrheal (loperamide)] 2 mg capsule 2 mg PO Q6H PRN (Reason: loose stool) No Action lorazepam 0.5 mg tablet 0.5 mg PO Q12H Referrals / Follow Up: Jarred Lopez MD [Primary Care Provider] - Disposition Disposition (needs filled in before D/C Order can be placed): [facility]
--- NOTE | 2023-11-24 14:16 | PCM.DC.SUM ---
Providers Date of Admission: 11/19/23 Date of Discharge: 11/24/23 Primary Care Physician: Dr. Jarred Lopez MD Reason For Visit: hyperglycemia Diagnosis Discharge Diagnosis (1) Diabetes mellitus with hyperglycemia: Status: Acute Code(s): E11.65 - Type 2 diabetes mellitus with hyperglycemia Plan 1. Type 2 diabetes-uncontrolled, again patient's insulin was adjusted today, she will remain on sliding scale insulin and her adjusted insulin dosages #2 hyponatremia-corrected at this time, labs will be monitored as needed #3 elevated creatinine-this is most likely secondary to chronic kidney disease type IIIb from type 2 diabetes-labs will be monitored as needed #4 severe deconditioning-PT and OT will continue to see the patient, she will be placed short-term in a halfway facility #5 diarrhea-probably secondary to gastroenteritis, resolved at this time #6 coronary artery disease-stable at this time Total clinical time spent by myself addressing the patient's medical issues, reviewing all of her data, and collaborating with patient's care team: 25 minutes Medications at Discharge Home Medications rizatriptan 10 mg tablet 10 mg PO PRN Migraine Symptoms 12/27/17 atorvastatin 40 mg tablet 40 mg PO QHS #30 tabs 05/21/22 metoprolol succinate 25 mg tablet,extended release 24 hr 25 mg PO DAILY #30 tabs 05/21/22 levothyroxine 175 mcg capsule 175 mcg PO DAILY 06/12/22 pantoprazole 40 mg tablet,delayed release 40 mg PO DAILY 06/12/22 ranolazine 500 mg tablet,extended release,12 hr 500 mg PO BID #60 tabs 06/12/22 midodrine 10 mg tablet 10 mg PO BID 09/09/22 mirtazapine 15 mg tablet 7.5 mg PO QHS 09/09/22 fenofibrate 50 mg capsule 50 mg PO QHS 01/29/23 lorazepam 0.5 mg tablet 0.5 mg PO Q12H anxeity 01/29/23 quetiapine 25 mg tablet 37.5 mg PO QHS 01/29/23 acetaminophen 325 mg tablet 650 mg (2 x 325 mg) PO Q6H PRN PRN Pain 1-10 Or Fever >100.7 #0 tabs 11/24/23 insulin glargine-yfgn 100 unit/mL (3 mL) subcutaneous pen 15 unit (0.15 mL) subcut BREAKFAST #0 mL 11/24/23 insulin glargine-yfgn 100 unit/mL (3 mL) subcutaneous pen 15 unit (0.15 mL) subcut QHS #0 mL 11/24/23 insulin lispro 100 unit/mL subcutaneous pen (Humalog KwikPen (U-100) Insulin) 5 unit (0.05 mL) subcut BREAKFAST #0 mL 11/24/23 insulin lispro 100 unit/mL subcutaneous pen (Humalog KwikPen (U-100) Insulin) 5 unit (0.05 mL) subcut DINNER #0 mL 11/24/23 insulin lispro 100 unit/mL subcutaneous pen (Humalog KwikPen (U-100) Insulin) 5 unit (0.05 mL) subcut LUNCH #0 mL 11/24/23 lorazepam 0.5 mg tablet 0.5 mg PO Q12H #10 tabs 11/24/23 melatonin 3 mg tablet 3 mg PO QHS PRN PRN Insomnia #0 tabs 11/24/23 menthol 0.44 %-zinc oxide 20.6 % topical ointment (Calmoseptine) 1 applic topical TID #0 grams 11/24/23 nystatin 100,000 unit/gram topical powder (Nyamyc) 1 applic topical BID #0 grams 11/24/23 potassium chloride 20 mEq tablet,extended release(part/cryst) 20 meq PO 1XD #0 tabs 11/24/23 Hospital Course Operations None Procedures None Summary of Care Provided Minutes Spent on Discharge: 32 Hospital Course: This 58-year-old white female was seen in the emergency room at [facility] with complaints of elevated blood sugar. She also complained of persistent diarrhea with nausea over 4 days. Patient stated she did not take any of her home insulin because she has not felt well, she however was able to eat at home. Patient complained of extreme weakness and pain in her legs. Labs showed a slightly elevated white blood cell count 11.8, hemoglobin was normal, chemistry panel was abnormal for sodium of 127, creatinine of 1.68, and a glucose of 484. Urinalysis was remarkable for a leukocyte Estrace count of 100, acetone level was normal. Patient was admitted to [place] [id number] for hyperglycemia and uncontrolled type 2 diabetes, she was given IV fluids and blood sugars were monitored, she was seen by PT and OT, she was felt to be a good candidate for transfer to a halfway facility for short-term rehab services. On 11/24/2023, patient was seen and examined: On examination she appeared in good health and spirits, she does not appear to be in any distress. Vital signs as documented. Skin warm and dry and without overt rashes. Neck without JVD, thyroid appears normal, trachea is midline, neck is supple. Lungs clear, normal air movement was noted. Heart exam notable for regular rhythm, normal sounds and absence of murmurs, rubs or gallops. Abdomen unremarkable and without evidence of organomegaly, masses, or abdominal aortic enlargement, bowel sounds are present in all 4 quadrants, no abdominal tenderness was noted. Extremities nonedematous, no cyanosis was noted, no clubbing was noted. Neuro: Cranial nerves II through XII are grossly intact, no focal motor deficits were noted, sensation to light touch and pinprick is intact, motor exam 5/5 throughout. Psych: Patient is alert and oriented x3, she does not appear anxious or depressed, she does not appear agitated. Patient appears stable for discharge to an extended care facility on 11/24/2023 in stable condition. Weight / BMI Weight Weight: 83.1 kg Body Mass Index (BMI) 35.9 ABG / Lab / Microbiology Data 11/22/23 05:00 11/23/23 06:39 Laboratory: Laboratory Results - last 24 hr 11/23/23 16:29: POC Glucose 172 H 11/23/23 21:05: POC Glucose 108 H 11/24/23 06:37: POC Glucose 129 H 11/24/23 10:55: POC Glucose 193 H Microbiology: Microbiology 11/20/23 06:35 Urine, Clean Catch Urine Culture - Final Enterococcus faecalis 11/19/23 12:30 Stool Stool Lactoferrin - Final 11/19/23 12:30 Stool Enteric Bacteriology - Final 11/19/23 12:30 Stool Clostridioides difficile (PCR) - Final 11/19/23 12:30 Stool Stool Occult Blood (JOSEFINA) - Final Occult Blood Positive Meaningful Use Info Meaningful Use Diagnoses (Choose all that apply): None applicable Discharge Plan Admission Admit Date/Time: 11/19/23 10:26 Primary Reason for Your Visit: Debility, uncontrolled type 2 diabetes Attending Provider: Paresh Hernandez Primary Care Provider: Jarred Lopez Consulting Providers: John Shaw Discharge Orders/Prescriptions Prescriptions: New acetaminophen 325 mg Tablet 650 mg PO Q6H PRN PRN (Reason: Pain 1-10 Or Fever >100.7) Qty: 0 0RF lorazepam 0.5 mg Tablet 0.5 mg PO Q12H Qty: 10 0RF insulin glargine-yfgn 100 unit/mL (3 mL) Insulin Pen 15 unit subcut QHS Qty: 0 0RF insulin glargine-yfgn 100 unit/mL (3 mL) Insulin Pen 15 unit subcut BREAKFAST Qty: 0 0RF melatonin 3 mg Tablet 3 mg PO QHS PRN PRN (Reason: Insomnia) Qty: 0 0RF potassium chloride 20 mEq Tablet,Er Particles/Crystals 20 meq PO 1XD Qty: 0 0RF nystatin [Nyamyc] 100,000 unit/gram Powder 1 applic topical BID Qty: 0 0RF Protocol: *Topical Application Instructions APPLICATION INSTRUCTIONS: under bilat breasts/groin insulin lispro [Humalog KwikPen Insulin] 100 unit/mL Insulin Pen 5 unit subcut BREAKFAST Qty: 0 0RF insulin lispro [Humalog KwikPen Insulin] 100 unit/mL Insulin Pen 5 unit subcut DINNER Qty: 0 0RF insulin lispro [Humalog KwikPen Insulin] 100 unit/mL Insulin Pen 5 unit subcut LUNCH Qty: 0 0RF menthol-zinc oxide [Calmoseptine] 0.44-20.6 % Ointment 1 applic topical TID Qty: 0 0RF Protocol: *Topical Application Instructions APPLICATION INSTRUCTIONS: bilat buttocks Continued levothyroxine 175 mcg capsule 175 mcg PO DAILY pantoprazole 40 mg tablet,delayed release (DR/EC) 40 mg PO DAILY ranolazine 500 mg tablet extended release 12 hr 500 mg PO BID Qty: 60 11RF mirtazapine 15 mg tablet 7.5 mg PO QHS midodrine 10 mg tablet 10 mg PO BID rizatriptan 10 tablet 10 mg PO PRN Patient Comments: metoprolol succinate 25 mg Tablet Extended Release 24 Hr 25 mg PO DAILY Qty: 30 2RF atorvastatin 40 mg tablet 40 mg PO QHS Qty: 30 2RF quetiapine 25 mg tablet 37.5 mg PO QHS fenofibrate 50 mg Capsule 50 mg PO QHS Discontinued dextrose [Glutose-15] 40 % gel 15 g PO Q15M PRN (Reason: Blood Sugar) Rx Instructions: until symptoms of low blood sugar are controlled nitroglycerin 0.4 mg tablet, sublingual 0.4 mg sublingual Q5-15M (DME) pen needle,diabetic, disp unit 29 gauge x 1/2 needle See Rx Instructions .ROUTE .MEDSUPPLY Qty: 100 0RF Rx Instructions: As directed insulin lispro 100 unit/mL insulin pen 15 unit SUBCUT TID Patient Comments: PT UNSURE OF HOW MANY UNITS Rx Instructions: with meals insulin glargine [Lantus Solostar U-100 Insulin] 100 unit/mL (3 mL) insulin pen 30 unit SUBCUT QHS Trulicity 3 mg/0.5 mL pen injector 3 mg SUBCUT MO loperamide [Anti-Diarrheal (loperamide)] 2 mg capsule 2 mg PO Q6H PRN (Reason: loose stool) No Action lorazepam 0.5 mg tablet 0.5 mg PO Q12H Referrals / Follow Up: Jarred Lopez MD [Primary Care Provider] - Disposition Disposition (needs filled in before D/C Order can be placed): [facility] Charges/Coding Visit Charges Inpatient E&M: 94464 Disch Hosp >30min
--- NOTE | 2023-11-24 15:02 | CASEMGMT ---
Social Work Precert has been obtained for pt to discharge to [facility]. Physician updated and pt is ready for dc today. 7000 exemption form completed in [facility]. DC will be completed once discharge orders are completed. Disposition: [facility], skilled level of care under convalescent stay [facility] [place]
[2023-11-24 15:05] VITALS: BP 117/63; PULSE 66; RESP 16; TEMP 36.9; O2SAT 96
--- NOTE | 2023-11-24 16:14 | CASEMGMT ---
Discharge Planning Discharge orders, signed med list, covid results, and transport time sent to [facility] via [facility]. Physicians will transport patient by wheelchair at 4:30p. Nursing, SW, patient, and her updated. Rachel Bueno, Discharge Planning Asst.
--- NOTE | 2023-11-24 16:30 | NURSING ---
This nurse tried calling multiple time to [facility] to give report but no one answered. Spoke with josé manuel Joyner a few time and she tried continue to try to get me a nurse to speak with. Will try calling back.
[2023-11-24 16:41] LABS: Bedside Glucose 128 mg/dL (74-106)
--- NOTE | 2023-11-24 17:53 | NURSING ---
This nurse gave report to MADDISON Valenzuela over at [facility]
== END 2023-11-24 17:34 | DRG 638 ==
LOC: ED 10:25 → MS3 11:24
PROVIDERS: Admitting Provider Internal Medicine; Emergency Provider Emergency Medicine; PCP Family Medicine; Visit Provider Internal Medicine
DX: E11.65 Type 2 diabetes mellitus with hyperglycemia (principal); N17.9 Acute kidney failure, unspecified; E87.1 Hypo-osmolality and hyponatremia; E11.22 Type 2 diabetes mellitus with diabetic chronic kidney disease; N18.30 Chronic kidney disease, stage 3 unspecified; Z79.4 Long term (current) use of insulin; E03.9 Hypothyroidism, unspecified; I12.9 Hypertensive chronic kidney disease with stage 1 through stage 4 chronic kidney disease, or unspecified chronic kidney disease; K52.9 Noninfective gastroenteritis and colitis, unspecified; G43.909 Migraine, unspecified, not intractable, without status migrainosus; E87.6 Hypokalemia; E78.5 Hyperlipidemia, unspecified; K21.9 Gastro-esophageal reflux disease without esophagitis; I25.10 Atherosclerotic heart disease of native coronary artery without angina pectoris; E66.9 Obesity, unspecified; G89.29 Other chronic pain; Z82.3 Family history of stroke; Z87.891 Personal history of nicotine dependence; Z68.37 Body mass index [BMI] 37.0-37.9, adult; Z66 Do not resuscitate
CPT/HCPCS: 36415; 80048; 80053; 80076; 81001; 82009; 82274; 82962; 83630; 83690; 83735; 84100; 85025; 87077; 87086; 87088; 87186; 87426; 87493; 87506; 94668; 97110; 97116; 97162; 97166; 97530; 97535; 97802; 99285; 90686; A4216; J2405

== ENCOUNTER → 2023-12-17 | Outpatient (REF) | payer MEDICARE, MEDICAID, SELFPAY ==
--- OUTSIDE RECORDS SUMMARY | 2023-12-17 05:29 | XMS RPT_ITS | CCD ---
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 Role Phone BRUCE CALIXTO Unavailable Unavailable [...] ciprofloxacin; Translations: [CIPROFLOXACIN] Drug Allergy 8 Swelling [facility] (20 sources) codeine; Translations: [CODEINE] Drug Allergy 4 Hives, Itching [facility] (20 sources) ibuprofen; Translations: [IBUPROFEN] Drug Allergy 7 Hives [facility] (19 sources) metFORMIN; Translations: [METFORMIN] Drug Allergy 7 Intolerance [facility] (19 sources) naproxen; Translations: [NAPROXEN] Drug Allergy 7 Hives [facility] (19 sources) Penicillins; Translations: [PENICILLINS] Propensity to adverse reactions (disorder) [facility] (19 sources) traMADol; Translations: [TRAMADOL HCL] Drug Allergy 7 [facility] (1 source) Ciprofloxacin Drug Allergy 7 [facility] Work Phone: (1 source) Ketorolac Drug Allergy itching [facility] Work Phone: (1 source) Naproxen Drug Allergy 0 eyes swell, [facility] Work Phone: (1 source) Penicillin V Drug Allergy hives [facility] Work Phone: (1 source) traMADol Drug Allergy face swells [facility] Work Phone: (18 sources) celecoxib; Translations: [CELECOXIB] Drug Allergy 0 Rash [facility] (18 sources) Ketorolac; Translations: [KETOROLAC] Drug Allergy 9 GI Upset [facility] Work Phone: Medications Current Medications [...] daily as needed for anxiety attacks ALPRAZOLAM [id number] Beth K Angle MA aspirin 81 mg [...] source) Toothache; Translations: [Other specified disorders of schedule this appointment? No Reason for Outreach Care Gap or Scheduling/Wellness visits Payer: Payor: [employer] / Plan: [employer] HMO / Product Type: HMO / Care [...] Shital Menezes April 08, 2023 1:51 PM [facility] 04-08-2023 Note Patient Outreach (AC CC) TERRANCE BRAR ([id number]) 1965 F Date Time Provider Department 04/08/23 PCP (HISTORICAL) [facility] During your visit today, we recorded the following information about you: Shital Clif 04/08/2023 1:52 PM Signed POPULATION HEALTH NAVIGATION OUTREACH Action/FYI Pt scheduled Patient Identified by Name and : YES, via phone Outreach Outcome/Action Spoke to patient / parent / legal guardian: Patient scheduled Did you use a PCP flex slot to schedule this appointment? No Reason for Outreach Care Gap or Scheduling/Wellness visits Payer: Payor: [employer] / Plan: [employer] HMO / Product Type: HMO / Care [...] DEPRESSION ASSESSMENT Never done Navigation Signature: Shital Clif April 08, 2023 1:51 PM Allergies As [...] blood sugar THREE TIMES DAILY - Insulin [place], Disposable, (BD ULTRA-FINE BEN PEN NEEDLE) 32 [...] [E04.1] 12/07/2008 Routine General Medical Examination at [facility]*12/10/2008 06/03/2015 Benign neoplasm of colon [D12.6] [...] Quervain's tenosynovitis [M65.4] (more content not included)... [facility] 04-08-2023 History of Present illness Narrative POPULATION HEALTH NAVIGATION OUTREACH Action/FYI Pt scheduled Patient Identified by Name and : YES, via phone Outreach Outcome/Action Spoke to patient / parent / legal guardian: Patient scheduled Did you use a PCP flex slot to schedule this appointment? No Reason for Outreach Care Gap or Scheduling/Wellness visits Payer: Payor: [employer] / Plan: [employer] HMO / Product Type: HMO / Care [...] 2023 1:51 PM documented in this encounter [facility] 04-07-2023 Note HNO ID: [id number] Author: Dwayne Lopez MD Service: ? Author Type: Physician Type: Progress Notes Filed: 04/12/2023 8:45 AM Note Text: Chief Complaint Patient presents with: SNF d/c follow up HPI Terrance Brar is a 57 year old female who presents here today for Above Complaints.. Patient had been a resident of [facility] since 03/2022 with discharge on 03/25. Admitted [...] for handicap placard. Patient also evaluated at [facility] ED on 03/28 for constipation for 4-5 [...] ovaries remain VAG (more content not included)... [facility] 04-07-2023 Miscellaneous Notes Patient here for appointment. Patient scheduled for SNF discharge follow up today at 1320. Phone call to patient to remind her to bring all discharge information to appointment today. LM to call office. Mariama Sandoval MA documented in this encounter [facility] 04-07-2023 History of Present illness Narrative Chief Complaint Patient presents with: SNF d/c follow up HPI Terrance Brar is a 57 year old female who presents here today for Above Complaints.. Patient had been a resident of [facility] since 03/2022 with discharge on 03/25. Admitted [...] for handicap placard. Patient also evaluated at [facility] ED on 03/28 for constipation for 4-5 [...] TUBE OVARY 2009 ovaries remain VAGINAL HYSTERECTOMY Family History FAMILY [...] test blood sugar THREE TIMES DAILY Insulin [place], Disposable, (BD ULTRA-FINE BEN PEN NEEDLE) 32 [...] in her vision. Recommended importance of evaluation MENDEL since this is worsening. Possible detached retina [...] which included preparing to see the patient, [id number] patient care, completing clinical documentation, obtaining and/or reviewing separately obtained history, performing a medically appropriate examination, counseling and educating the patient/family/caregiver, and ordering medications, tests, or procedures. Dwayne Lopez MD documented in this encounter [facility] 03-31-2023 Note Patient Outreach (IN TMMN) TERRANCE BRAR ([id number]) 1965 F Date Time Provider Department 03/31/23 [...] for screening mammogram for breast cancer [Z12.31] Order(s):[facility] SCREENING [8043489] Order #: [id number] FUTURE Prescriptions as of 04/05/2023 - loperamide [...] blood sugar THREE TIMES DAILY - Insulin [place], Disposable, (BD ULTRA-FINE BEN PEN NEEDLE) 32 [...] [E04.1] 12/07/2008 Routine General Medical Examination at [facility]*12/10/2008 06/03/2015 Benign neoplasm of colon [D12.6] [...] Encounter Status:Closed by VAN, PRODUSER on 04/05/23 [facility] 03-24-2023 Note HNO ID: [id number] Author: Dwayne Lopez MD Service: ? Author Type: Physician Type: Progress Notes Filed: 03/24/2023 11:44 AM Note Text: Chief Complaint Patient presents with: [facility] Terrance Brar is a 57 year old female who presents here today for Above Complaints. Accompanied today by her Shan. Patient has been a resident of [facility] since 03/2022 and is planning on being discharged tomorrow. States that she was admitted initially for weakness and inability to walk. This was attributed to her uncontrolled DM. Required 11 months of PT. I have not received any records from the residential as of yet. Patient has paperwork today [...] TUBE OVARY 2009 ovaries remain VAGINAL HYSTERECTOMY Family History FAMILY [...] chewable tablet GABRIELA (more content not included)... [facility] 03-24-2023 History of Present illness Narrative Chief Complaint Patient presents with: Establish Care HPI Jenniferneil Brar is a 57 year old female who presents here today for Above Complaints. Accompanied today by her Shan. Patient has been a resident of [facility] since 03/2022 and is planning on being discharged tomorrow. States that she was admitted initially for weakness and inability to walk. This was attributed to her uncontrolled DM. Required 11 months of PT. I have not received any records from the residential as of yet. Patient has paperwork today [...] test blood sugar THREE TIMES DAILY Insulin [place], Disposable, (BD ULTRA-FINE BEN PEN NEEDLE) 32 [...] care visit. Will request discharge records from residential along with labs obtained 1-2 weeks ago. Dwayne Lopez MD documented in this encounter [facility] 03-16-2023 Note HNO ID: [id number] Author: Sharonda Sanchez Service: ? Author Type: ? Type: Progress Notes Filed: 03/16/2023 12:49 PM Note Text: Susital Brar is identified through a medication adherence outreach initiative based on pharmacy claims data from [employer] (insurer) for Non-insulin DM medication(s) and Statin [...] Call patient and had to leave an [facility] Patient Outreach ( PO) BRARTERRANCE Panchito ([id number]) 1965 F Date Time Provider Department 03/16/23 NO PCP PHPOHE During your visit today, we recorded the following information about you: Sharonda Daniel 03/16/2023 12:49 PM Signed Terrance Brar is identified through a medication adherence outreach initiative based on pharmacy claims data from [employer] (insurer) for Non-insulin DM medication(s) and Statin [...] n/a Contacted patient: No answer; left generic Outcome of review/outreach: (choose outcome source and status) - Call patient and had to leave an Sharonda Daniel [employer] Allergies As of Date: 03/16/2023 Noted Allergy [...] blood sugar THREE TIMES DAILY - Insulin [place], Disposable, (BD ULTRA-FINE BEN PEN NEEDLE) 32 [...] [E04.1] 12/07/2008 Routine General Medical Examination at [facility]*12/10/2008 06/03/2015 Benign neoplasm of colon [D12.6] [...] Renal stone [N20.0] (more content not included)... [facility] 02-23-2023 Note HNO ID: [id number] Author: Sharonda Sanchez Service: ? Author Type: ? Type: Progress Notes Filed: 02/23/2023 2:54 PM Note Text: Terrance Brar is identified through a medication adherence outreach initiative based on pharmacy claims data from [employer] (insurer) for Non-insulin DM medication(s) and Statin [...] dispense and per call to patient/caregiver Sharonda De Correspondent [facility] 02-23-2023 History of Present illness Narrative Terrance Brar is identified through a medication adherence outreach initiative based on pharmacy claims data from [employer] (insurer) for Non-insulin DM medication(s) and Statin [...] dispense and per call to patient/caregiver Sharonda De Correspondent documented in this encounter [facility] 02-23-2023 Note Patient Outreach ( POHE) BRARSUSITal Flanagan ([id number]) 1965 F Date Time Provider Department 02/23/23 NO PCP PHPOHE During your visit today, we recorded the following information about you: Sharonda Sanchez 02/23/2023 2:54 PM Signed Susital Brar is identified through a medication adherence outreach initiative based on pharmacy claims data from [employer] (insurer) for Non-insulin DM medication(s) and Statin [...] and per call to patient/caregiver Sharonda Sanchez [employer] Allergies As of Date: 02/23/2023 Noted Allergy [...] blood sugar THREE TIMES DAILY - Insulin [place], Disposable, (BD ULTRA-FINE BEN PEN NEEDLE) 32 [...] [E04.1] 12/07/2008 Routine General Medical Examination at [facility]*12/10/2008 06/03/2015 Benign neoplasm of colon [D12.6] [...] [M65.351] 06/21/2017 Tri (more content not included)... [facility] 01-11-2023 Note HNO ID: [id number] Author: Aquilino Jha Service: ? Author Type: ? Type: Progress Notes Filed: 01/21/2023 9:43 AM Note Text: 01/11/23 attempt 3 - no answer [facility] 01-11-2023 History of Present illness Narrative 01/11/23 attempt 3 - no answer 01/04/23 attempt 2 - no answer LVM Pt chart reviewed as part of population health initiative focused on statin use in patients with diabetes (DM) or cardiovascular disease (CVD). Terrance Brar is identified through data from [employer] (insurer) as a potential candidate for statin [...] Diagnosis Date Anemia 03/12/2015 Bipolar 2 disorder ([facility]) 05/26/2018 Constipation 03/12/2015 Diabetes mellitus Excessive or frequent menstruation Hyperlipidemia associated with type 2 diabetes mellitus ([facility]) 03/12/2015 Hyperparathyroidism, unspecified ([facility]) 10/24/2008 Hypothyroidism 03/12/2015 Lumbar degenerative disc disease [...] contacted: 01/01/23 attempt 1 - no answer LVBernadette Jha Approving student documentation and outreach below. Donnell Syed RPh PharmD BCACP documented in this encounter [facility] 01-04-2023 Note HNO ID: [id number] Author: Aquilino Jha Service: ? Author Type: ? Type: Progress Notes Filed: 01/21/2023 9:43 AM Note Text: 01/04/23 attempt 2 - no answer [facility] 01-01-2023 Note HNO ID: [id number] Author: Aquilino Jha Service: ? Author Type: ? Type: Progress Notes Filed: 01/21/2023 9:43 AM Note Text: Pt chart reviewed as part of population health initiative focused on statin use in patients with diabetes (DM) or cardiovascular disease (CVD). Terrance Brar is identified through data from [employer] (insurer) as a potential candidate for statin [...] Diagnosis Date Anemia 03/12/2015 Bipolar 2 disorder ([facility]) 05/26/2018 Constipation 03/12/2015 Diabetes mellitus Excessive or frequent menstruation Hyperlipidemia associated with type 2 diabetes mellitus ([facility]) 03/12/2015 Hyperparathyroidism, unspecified ([facility]) 10/24/2008 Hypothyroidism 03/12/2015 Lumbar degenerative disc disease [...] contacted: 01/01/23 attempt 1 - no answer CARIDADBernadette Aquilino Jha [facility] 01-01-2023 Note HNO ID: [id number] Author: Donnell Syed RPh Service: ? Author Type: Pharmacist Type: Progress Notes Filed: 01/21/2023 9:43 AM Note Text: Approving student documentation and outreach below. Donnell Syed RPh PharmEliza MELGAR [facility] 01-01-2023 Note Patient Outreach ( PO) TERRANCE BRAR ([id number]) 1965 F Date Time Provider Department 01/01/23 DONNELL SYED During your visit today, we recorded the following information about you: Donnell Syed RPh 01/21/2023 9:43 AM Signed Approving student documentation and outreach below. Elisabet Flynn PharmD 01/21/2023 9:43 AM Signed Pt chart reviewed as part of population health initiative focused on statin use in patients with diabetes (DM) or cardiovascular disease (CVD). Susital Buenrostrones is identified through data from [employer] (insurer) as a potential candidate for statin [...] Diagnosis Date Anemia 03/12/2015 Bipolar 2 disorder ([facility]) 05/26/2018 Constipation 03/12/2015 Diabetes mellitus Excessive or frequent menstruation Hyperlipidemia associated with type 2 diabetes mellitus ([facility]) 03/12/2015 Hyperparathyroidism, unspecified ([facility]) 10/24/2008 Hypothyroidism 03/12/2015 Lumbar degenerative disc disease [...] Nonfasting (mg/dL) Date Value 09/18/2019 636 Sandra garza contacted: 01/01/23 attempt 1 - no answer [...] Fully Assessed Reason for Visit: Medication Update [0816] Cmt: Statin use review Prescriptions as of [...] subcutaneously daily at bedtime. - Blood-Glucose Meter ([employer] METER) monitoring kit Free style lite Insulinx - insulin lispro (HUMALOG KWIKPEN INSULIN) 100 unit/mL Inject 14 Units subcutaneously w MEALS. (more content not included)... 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
E11.69 - Hyperlipidemia associated with type 2 diabetes mellitus (HCC) - [id number] Last Billed 12/26/2019
E21.3 - Hyperparathyroidism (HCC) - [id number] Last Billed 09/18/2019
patient also due for [...] Outreach HCC or suspected condition Payer: Payor: [employer] / Plan: [employer] HMO / Product Type: HMO / Care [...] 2022 12:55 PM documented in this encounter [facility] documented as of this encounter (statuses as of 04/03/2022) [facility] History of Past illness Narrative* Problem Noted Date Resolved Date Trigger thumb of left hand 07/23/201501/27 Carpal tunnel syndrome, left 05/27/201502/2017 Carpal tunnel syndrome, right 05/27/2015 Constipation 03/12/2015 06/03/2015 Anemia 03/12/2015 02/27/2016 Abdominal pain, right upper quadrant 06/05/2014 06/03/2015 Abdominal pain, epigastric 05/15/201406/03 Routine [facility] 12/10/2008 06/03/2015 Overview: HCT 37.6% [...] of this encounter (statuses as of 01/21/2023) [facility] History of Past illness Narrative* [...] of this encounter (statuses as of 02/24/2023) [facility] History of Past illness Narrative* [...] of this encounter (statuses as of 03/24/2023) [facility] History of Past illness Narrative* [...] of this encounter (statuses as of 04/07/2023) [facility] History of Past illness Narrative* [...] in 07-03 EDMUNDO in 03-[address] Mckeno: no details of surgery as per note [...] of this encounter (statuses as of 04/08/2023) [facility] History of Past illness Narrative* [...] of this encounter (statuses as of 04/12/2023) [facility] History of Past illness Narrative* [...] of this encounter (statuses as of 04/23/2023) [facility] History of Past illness Narrative* [...] of this encounter (statuses as of 05/05/2023) [facility] History of Past illness Narrative* [...] of this encounter (statuses as of 05/20/2023) [facility] History of Past illness Narrative* [...] of this encounter (statuses as of 05/24/2023) [facility] History of Past illness Narrative* [...] on 05-16-09 Depressive disorder, not elsewhere classified 10/05/2002/27/2016 Overview: Celexa to 40 mg in 01-31: consider referral to Psychology (issues primarily with her kids) Diabetes mellitus type 2, un controlled, without complications 10/05/2008 02/27/2016 Overview: A1C 11% in 10-01 Creat 0.6 in 10-01, 0.7 in 11-02, 0.8 in 12-31, 0.9 in 07-03 Alb/Creat 29 in 10-01 NS for eye appt in 01-31 documented as of this encounter (statuses as of 06/10/2023) [facility] History of Past illness Narrative* [...] of this encounter (statuses as of 06/30/2023) [facility] History of Past illness Narrative* [...] on 05-16-09 Depressive disorder, not elsewhere classified 10/05/2002/27/2016 Overview: Celexa to 40 mg in 01-31: consider referral to Psychology (issues primarily with her kids) Diabetes mellitus type 2, un controlled, without complications 10/05/2008 02/27/2016 Overview: A1C 11% in 10-01 Creat 0.6 in 10-01, 0.7 in 11-02, 0.8 in 12-31, 0.9 in 07-03 Alb/Creat 29 in 10-01 NS for eye appt in 01-31 documented as of this encounter (statuses as of 08/18/2023) [facility] History of Past illness Narrative* [...] of this encounter (statuses as of 08/19/2023) [facility] of Past illness Narrative* [...] of this encounter (statuses as of 08/20/2023) [facility] of Past illness Narrative* [...] of this encounter (statuses as of 09/20/2023) [facility] Diagnosis Globus sensation- Primary Gastrointestinal malfunction arising from mental factors Gastroesophageal reflux disease, unspecified whether esophagitis present documented [facility] this encounter [facility] Diagnosis Generalized weakness- Primary Other malaise [...] type dependence, continuous [facility] Diagnosis Toothache- Primary Unspecified disorder of the teeth and supporting structures documented in this encounter [facility] Summary Purpose Family History No Family History Records FoundNo Family History Records FoundNo Family History Records FoundNo Family History Records FoundNo Family History Records FoundNo Family History Records Found Advance Directives No Advanced Directives Records FoundDocuments on File Type Date Recorded Patient Saw Tailer Expl anation Advance Directive(s) 10/10/2020 10:19 AM Advance Directive(s) 10/01/2020 10:25 AM Advance Directive(s) 05/20/2020 4:17 PM Advance Directive(s) 05/09/2020 11:51 AM Advance Directive(s) 05/03/2020 11:33 AM Advance Directive(s) 10/12/2019 1:17 PM Advance Directive(s) 06/30/2017 11:57 AM Advance Directive(s) 06/23/2017 8:06 AM Advance Directive(s) 04/08/2016 8:19 AM Advance Directive(s) 03/31/2016 11:25 AM Reason for Referral Specialty Diagnoses / Procedures Referred By Mamta t Referred To Contact Podiatry Diagnoses Diabetic polyneuropathy associated with type 2 diabetes mellitus (HCC) Procedures CONSULT TO PODIATRY OFFICE/OUTPATIENT [facility] 60-[place] [address] [place] [id number] Referral ID Status Reason Start Date Expiration Date Visits Requested Visits Authorized [id number] Pending Review PCP Requested Referral 04/07/2023 04/06/2024 1 1 Specialty Diagnoses / Procedures Referred By Contshadia t Referred To Contact General Surgery Diagnoses Globus sensation Screening for colon cancer Procedures CONSULT TO GENERAL SURGERY OFFICE/OUTPATIENT [facility] 60-74 MINUTES Dwayne Lopez MD [address] [place] [address] Referral ID Status Reason Start Date Expiration Date Visits Requested Visits Authorized [id number] Pending Review PCP Requested Referral 04/07/2023 04/06/2024 1 1 Specialty Diagnoses / Procedures Referred By Contac t Referred To Contact Ophthalmology Diagnoses Diabetes mellitus type 2 with neurological manifestations (HCC) Change in vision Procedures CONSULT TO OPHTHALMOLOGY OFFICE/OUTPATIENT [facility] 60-74 MINUTES Dwayne Lpoez MD [address] [place] [address] Referral ID Status Reason Start Date Expiration Date Visits Requested Visits Authorized [id number] Pending Review PCP Requested Referral 04/07/2023 04/06/2024 1 1 Additional Source Comments INFORMATION SOURCE (unrecogn ized section and content) DATE CREATED AUTHOR AUTHOR'S ORGANIZ ATION 04/14/[address] [facility] [place] [facility] DATE CREATED AUTHOR AUTHOR'S ORGANIZ ATION 10/05/2018 [facility] DATE CREATED AUTHOR AUTHOR'S ORGANIZ ATION 10/19/2019 [facility] DATE CREATED AUTHOR AUTHOR'S ORGANIZ ATION 09/28/2020 [facility] ([place]) DATE CREATED AUTHOR AUTHOR'S ORGANIZ ATION 11/03/2023 [facility] Source Comments (unrecognize d section and content) In the event this informatio n is protected by the Federal Confidentiality of Alcohol and Drug Abuse Patient Records regulations: The Federal rules restrict any use of the information to criminally investigate or prosecute any alcohol or drug abuse patient.[facility] the event this information is protected by the Federal Confidentiality of Alcohol and Drug Abuse Patient Records regulations: The Federal rules restrict any use of the information to criminally investigate or prosecute any alcohol or drug abuse patient.[facility] the event this information is protected by the Federal Confidentiality of Alcohol and Drug Abuse Patient Records regulations: The Federal rules restrict any use of the information to criminally investigate or prosecute any alcohol or drug abuse patient.[facility] CenterIn the event this information is protected by the Federal Confidentiality of Alcohol and Drug Abuse Patient Records regulations: The Federal rules restrict any use of the information to criminally investigate or prosecute any alcohol or drug abuse patient.[facility] the event this information is protected by the Federal Confidentiality of Alcohol and Drug Abuse Patient Records regulations: The Federal rules restrict any use of the information to criminally investigate or prosecute any alcohol or drug abuse patient.[facility] the event this information is protected by the Federal Confidentiality of Alcohol and Drug Abuse Patient Records regulations: The Federal rules restrict any use of the information to criminally investigate or prosecute any alcohol or drug abuse patient.[facility] CenterIn the event this information is protected by the Federal Confidentiality of Alcohol and Drug Abuse Patient Records regulations: The Federal rules restrict any use of the information to criminally investigate or prosecute any alcohol or drug abuse patient.[facility] CenterIn the event this information is protected by the Federal Confidentiality of Alcohol and Drug Abuse Patient Records regulations: The Federal rules restrict any use of the information to criminally investigate or prosecute any alcohol or drug abuse patient.[facility] CenterIn the event this information is protected by the Federal Confidentiality of Alcohol and Drug Abuse Patient Records regulations: The Federal rules restrict any use of the information to criminally investigate or prosecute any alcohol or drug abuse patient.[facility] CenterIn the event this information is protected by the Federal Confidentiality of Alcohol and Drug Abuse Patient Records regulations: The Federal rules restrict any use of the information to criminally investigate or prosecute any alcohol or drug abuse patient.[facility] CenterIn the event this information is protected by the Federal Confidentiality of Alcohol and Drug Abuse Patient Records regulations: The Federal rules restrict any use of the information to criminally investigate or prosecute any alcohol or drug abuse patient.[facility] CenterIn the event this information is protected by the Federal Confidentiality of Alcohol and Drug Abuse Patient Records regulations: The Federal rules restrict any use of the information to criminally investigate or prosecute any alcohol or drug abuse patient.[facility] CenterIn the event this information is protected by the Federal Confidentiality of Alcohol and Drug Abuse Patient Records regulations: The Federal rules restrict any use of the information to criminally investigate or prosecute any alcohol or drug abuse patient.[facility] CenterIn the event this information is protected by the Federal Confidentiality of Alcohol and Drug Abuse Patient Records regulations: The Federal rules restrict any use of the information to criminally investigate or prosecute any alcohol or drug abuse patient.[facility] CenterIn the event this information is protected by the Federal Confidentiality of Alcohol and Drug Abuse Patient Records regulations: The Federal rules restrict any use of the information to criminally investigate or prosecute any alcohol or drug abuse patient.[facility] CenterIn the event this information is protected by the Federal Confidentiality of Alcohol and Drug Abuse Patient Records regulations: The Federal rules restrict any use of the information to criminally investigate or prosecute any alcohol or drug abuse patient.[facility] CenterIn the event this information is protected by the Federal Confidentiality of Alcohol and Drug Abuse Patient Records regulations: The Federal rules restrict any use of the information to criminally investigate or prosecute any alcohol or drug abuse patient.[facility] Reason for Visit (unrecogniz ed [...] Date Comments Population Health Navigation Outreach 08/18/2023 [place] care gaps Reason Onset Date Comments Refill Request 08/18/2023 Reason Onset Date Comments Allied Health Visit 08/20/2023 Medication A dherence Outreach Reason Onset Date Comments Allied Health Visit 09/20/2023 Medication A dherence Outreach Care Teams (unrecognized sec tion and content) [employer] Relationship Specialty Start Date End Date Dwayne Lopez MD [address] [place], [place] [id number] PCP - General Family Medicine 03/24/23 [employer] Relationship Specialty Start Date End Date Dwayne Lopez MD [address] [place], [place] [id number] [phone] PCP - General Family Medicine 03/24/23 [employer] Relationship Specialty Start Date End Date Dwayne Lopez MD [address] [place], [place] [id number] PCP - General Family Medicine 03/24/23 [employer] Relationship Specialty Start Date End Date Dwayne Lopez MD [address] [place], [place] [id number] PCP - General Family Medicine 03/24/23 [employer] Relationship Specialty Start Date End Date Dwayne Lopez MD [address] [place], [place] [id number] PCP - General Family Medicine 03/24/23 [employer] Relationship Specialty Start Date End Date Dwayne Lopez MD [address] [place], [place] [id number] [phone] PCP - General Family Medicine 03/24/23 [employer] Relationship Specialty Start Date End Date Dwayne Lopez MD [address] [place], [place] [address] [phone] PCP - General Family Medicine 03/24/23 [employer] Relationship Specialty Start Date End Date Dwayne Lopez MD [address] [place], [place] [id number] PCP - General Family [facility] 03/24/23 [employer] Relationship Specialty Start Date End Date Dwayne Lopez MD [address] [place], [place] [id number] PCP - General [facility] 03/24/23 [employer] Relationship Specialty Start Date End Date Dwayne Lopez MD [address] [place], [place] [id number] PCP - General [facility] 03/24/23 [employer] Relationship Specialty Start Date End Date Dwayne Lopez MD [address] [place], [place] [id number] PCP - General Family [facility] 03/24/23 FOR RECORDS PERTAINING TO PATIENTS WHO [...] BE BASED ON THE PRIMARY CLINICAL RECORDS. [facility] [employer] [facility] provides no warranty or guarantee of the accuracy or completeness of information in this document.
[2023-12-17 09:05] LABS: Absolute Lymphocyte Count 2.73 X10^3/uL (0.83-4.51); Absolute Neutrophil Count 4.4 X10^3/uL (2.0-7.7); Basophil# 0.05 X10^3/uL; Basophil% 0.6 % (0-1); Eosinophil# 0.08 X10^3/uL; Hematocrit 34.1 % (37-47); Hemoglobin 11.2 g/dL (12.0-15.0); Lymphocyte # 2.73 X10^3/ul (0.83-4.51); Mean Corp Hgb Conc 32.8 g/dL (32-36); Mean Corpuscular Hgb 29.9 pg (27.0-32.0); Mean Corpuscular Volume 90.9 fL (81-99); Mean Platelet Vol. 9.5 fl (6.2-12.0); Monocyte# 0.54 X10^3/uL; Monocyte% 6.9 % (0-10); NRBC Flagged by Analyzer 0 % (0-5); Neutrophil # 4.36 X10^3/uL (2.7-7.7); Neutrophil % 56.1 % (47-70); Platelet Count 323 K/mm3 (150-450); RBC Distribution Width SD 46.7 fl (35.1-43.9); Red Blood Count 3.75 M/mm3 (4.2-5.4); White Blood Count 7.8 K/mm3 (4.4-11.0)
[2023-12-17 09:23] LABS: Anion Gap 6 (5-15); BUN 29 mg/dL (7-18); BUN/Creat Ratio 22.7 RATIO (10-20); Calcium,Total 8.9 mg/dL (8.5-10.1); Chloride 101 mmol/L (98-107); Creatinine, Serum 1.28 mg/dL (0.55-1.02); EST Glomerular Filtration Rate 45 mL/min (>60); Est Glom Filt Rate - Afr Amer 55 mL/min (>60); Glucose 295 mg/dL (74-106); Potassium 4.1 mmol/L (3.5-5.1); Sodium Level 135 mmol/L (136-145)
== END ==
LOC: OLS.WHLEAS 05:00
PROVIDERS: PCP Family Medicine; Visit Provider Internal Medicine
DX: E11.22 Type 2 diabetes mellitus with diabetic chronic kidney disease (principal); N18.9 Chronic kidney disease, unspecified
CPT/HCPCS: 36415; 80048; 85025

== ENCOUNTER → 2023-12-24 | Outpatient (REF) | payer MEDICARE, MEDICAID, SELFPAY ==
--- OUTSIDE RECORDS SUMMARY | 2023-12-24 05:16 | XMS RPT_ITS | CCD ---
Author Name Unknown Address [address] [place] [address] Organization [facility] Care Team Providers Care Managing Cognitive Engineer Name Role Phone BRUCE CALIXTO Unavailable Unavailable [...] ciprofloxacin; Translations: [CIPROFLOXACIN] Drug Allergy 8 Swelling [facility] Repository (20 sources) codeine; Translations: [CODEINE] Drug Allergy 4 Hives, Itching [facility] Repository (20 sources) ibuprofen; Translations: [IBUPROFEN] Drug Allergy 7 Hives [facility] Repository (19 sources) metFORMIN; Translations: [METFORMIN] Drug Allergy 7 Intolerance [facility] Repository (19 sources) naproxen; Translations: [NAPROXEN] Drug Allergy 7 Hives [facility] Repository (19 sources) Penicillins; Translations: [PENICILLINS] Propensity to adverse reactions (disorder) 7 [facility] Repository (19 sources) traMADol; Translations: [TRAMADOL HCL] Drug Allergy 7 [facility] Repository (1 source) Ciprofloxacin Drug Allergy 7 [facility] Work Phone: (1 source) Ketorolac Drug Allergy itching [facility] Work Phone: (1 source) Naproxen Drug Allergy [facility] Work Phone: (1 source) Penicillin V Drug Allergy hives [facility] Work Phone: (1 source) traMADol Drug Allergy face swells [facility] Work Phone: (18 sources) celecoxib; Translations: [CELECOXIB] Drug Allergy [address] [facility] (18 sources) Ketorolac; Translations: [KETOROLAC] Drug Allergy [address] [facility] Work Phone: Medications Current Medications Medication [...] daily as needed for anxiety attacks ALPRAZOLAM [id number] Beth K Angle MA aspirin 81 mg [...] 100 [degF] Vernon Degroot APRN.CNP Work Phone: [facility] 04-23-2023 14:35-0400 Body weight 81.1 kg Vernon Degroot APRN.CNP Work Phone: [facility] 04-23-2023 14:35-0400 Diastolic blood pressure 82 mm[Hg] Vernon Degroot APRN.CNP Work Phone: [facility] 04-23-2023 14:35-0400 Heart rate 94 /min Vernon Degroot APRN.CNP Work Phone: [facility] 04-23-2023 14:35-0400 Respiratory rate 21 /min Vernon Degroot APRN.CNP Work Phone: [facility] 04-23-2023 14:35-0400 SaO2% (BldA) [Mass fraction] 99 % Vernon Degroot COMMUNICATION CENTER COORDINATOR.ENERGY ENGINEER Work Phone: [facility] 04-23-2023 14:35-0400 Systolic blood pressure 130 mm[Hg] Vernon Degroot APRN.ENERGY ENGINEER Work Phone: [facility] 04-07-2023 13:09-0400 Body height 152.4 cm Dwayne Lopez MD Work Phone: [facility] 04-07-2023 13:09-0400 Body weight 81.65 kg Dwayne Lopez MD Work Phone: [facility] 04-07-2023 13:09-0400 Diastolic blood pressure 74 mm[Hg] Dwayne Lopez MD Work Phone: [facility] 04-07-2023 13:09-0400 Heart rate 80 /min Dwayne Lopez MD Work Phone: [facility] 04-07-2023 13:09-0400 Respiratory rate 16 /min Dwayne Lopez MD Work Phone: [facility] 04-07-2023 13:09-0400 Systolic blood pressure 112 mm[Hg] Dwayne Lopez MD Work Phone: [facility] 03-24-2023 10:18-0400 Body weight 83.92 kg Dwayne Lopez MD Work Phone: [facility] 03-24-2023 10:18-0400 Diastolic blood pressure 64 mm[Hg] Dwayne Lopez MD Work Phone: [facility] 03-24-2023 10:18-0400 Heart rate 84 /min Dwayne Lopez MD Work Phone: [facility] 03-24-2023 10:18-0400 Respiratory rate 16 /min Dwayne Lopez MD Work Phone: [facility] 03-24-2023 10:18-0400 Systolic blood pressure 110 mm[Hg] Dwayne Lopez MD Work Phone: [facility] 07-28-2017 17:13-0400 BMI (Body Mass Index) 32.38 kg/m2 Angelika De La Torre LPN [facility] Work Phone: 07-28-2017 17:13-0400 Body Temperature 98.3 [degF] Angelika De La Torre LPN [facility] Work Phone: 07-28-2017 17:13-0400 BP Diastolic 76 mm[Hg] Angelika De La Torre LPN [facility] Work Phone: 07-28-2017 17:13-0400 BP Systolic 124 mm[Hg] Angelika De La Torre LPN [facility] Work Phone: 07-28-2017 17:13-0400 Height 152.4 cm Angelika De La Torre LPN [facility] Work Phone: 07-28-2017 17:13-0400 Pulse (Heart Rate) 72 /min Angelika De La Torre LPN [facility] Work Phone: 07-28-2017 17:13-0400 Respiratory Rate 15 /min Angelika De La Torre LPN [facility] Work Phone: 07-28-2017 17:13-0400 Weight 75.21 kg Angelika De La Torre LPN [facility] Work Phone: 02-04-2012 09:28-0400 BSA (Body Surface Area) 1.75 m2 Angelika De La Torre LPN [facility] Work Phone: Encounters [...] Detail Author Start: 06-09-[address] [facility] Start: 04-07-2024 3 comp foot exam completed DIABETIC FOOT EXAM [facility] Start: 04-07-2024 ANNUAL PCP TEAM QUALITY ASSURANCE INTERN ASHELY DISEASE VISIT ANNUAL PCP TEAM CHRONIC DISEASE VISIT [facility] Start: 04-07-2024 COVID-19 VACCINE (4 - Booster for Pfizer series) COVID-19 VACCINE (4 - Booster for Pfizer series) [facility] Immunizations Immunization Date Immunization Notes Care Provider Fa cility 04-07-2023 pneumococcal (PCV20) vaccine, 20 valent (PREVNAR 20) Dwayne Lopez MD Work Phone: [facility] 04-07-2023 pneumococcal Conjuga te, unspecified formulation Dwayne Lopez MD Work Phone: [facility] Work Phone: 06-09-2021 tetanus toxoid, redu juan c diphtheria toxoid, and acellular pertussis vaccine, adsorbed Shital Jorge [facility] 09-18-2019 influenza, injectabl e, quadrivalent, contains preservative Shital Patel MA [facility] 09-18-2019 influenza virus vaccine, unspecified formulation Irena Sana REYES [facility] 08-17-2019 influenza, injectabl e, quadrivalent, preservative free Shital Patel MA [facility] 07-04-2018 influenza, injectabl e, quadrivalent, preservative free Shital Patel [facility] 07-04-2018 pneumococcal polysaccharide vaccine, 23 valent Shital Patel [facility] 09-07-2013 influenza, seasonal, injectable, preservative free Shital Patel [facility] 11-23-2012 pneumococcal polysaccharide vaccine, 23 valent Shital Patel [facility] 08-14-2010 influenza, seasonal, injectable [facility]: 03-10-2010 influenza, seasonal, injectable; Translations: [Follow Up Appt 2 weeks] Angelika De La Torre LPN [facility] Work Phone: 09-11-2009 novel [id number], preservative-free, injectable Shital Patel [facility] 10-10-2008 pneumococcal polysaccharide vaccine, 23 valent Shital Patel [facility] 08-25-2008 influenza virus vaccine, unspecified formulation Shital Patel [facility] Work Phone: 04-24-2006 tetanus and diphther ia toxoids, adsorbed, preservative free, for adult use (2 Lf of tetanus toxoid and 2 Lf of diphtheria toxoid) Shital Patel [facility] Work Phone: Payers Date Payer Category Payer Unknown ANTHEM BLUE CROS S AND BLUE SHIELD ANTHEM MEDIBLUE O [id number] 2022-[facility] [phone] [address] [place] [address] O [id number] 2022 Unknown ANTHEM BLUE CROS S AND BLUE SHIELD ANTHEM MEDIBLUE O [id number] 2022-Present [phone] [address] [place] [address] HMO [id number] 2022 Unknown [id number] 2014 Medicaid [id number] Unknown [id number] Unknown [id number] Unknown [id number] Unknown [id number] Unknown [id number] Social History Date Type Detail Facility Start: 10-21-2020 End: 03-24-2023 Tobacco smoking status NHIS Ex-smoker [facility] Start: 06-25-1977 End: 10-07-2020 History of tobacco use Current smoker [facility] Start: 06-25-1977 End: 10-07-2020 History of tobacco use Cigarette Smoker [facility] Start: 10-21-2020 End: 11-19-2022 Cigarettes smoked current (pack per day) - Reported 0.5 [facility] Start: 10-21-2020 End: 03-24-2023 Tobacco use and exposure Smokeless tobacco non-user [facility] Start: 10-31-2021 End: 08-10-2023 Alcohol intake Current non-drinker of alcohol (finding) [facility] Start: 05-27-2015 History SDOH Alcohol Comment Seldom- twice yearly [facility] Start: 1965 Sex Assigned At Not on file C [facility] Start: 11-19-2022 End: 04-23-[address] [facility] National Score (1-10 0), lower number is lower risk 70 [facility] Medical Equipment Procedure Code Equipment Code Equipment Origin al Text Equipment Identifier Dates TEST STRIPS TEST STRIPS [id number] Start: 08-14-2010 LANCET LANCET [id number] Start: 08-14-2010 INSULIN PEN NEEDLE [id number] Start: 08-14-2010 Goals Date Patient Goal Desired Activity /State Personal health goal Clinical Notes 07-23-2015 to 11-02-2023 Ariadna Kyle - 09/20/2023 8:48 AM Sharonda Delong - 08/20/2023 4:22 PM EDTTelephone Encounter - Mary Ellen Karimi LPN - 08/18/2023 4:53 PM EDTIrena Hood PSS - 08/18/2023 7:58 AM EDT Note Date & Type Note Facility 11-02-2023 Note Patient Outreach (NE TNAV) TERRANCE BRAR ([id number]) 1965 F Date Time Provider Department 11/02/23 [...] HCC or suspected condition Payer: Payor: [employer] / Plan: VINH MEDICARE ADVANTAGE HMO / Product Type: HMO [...] Population Health Navigation Outreach [3910] Cmt: Vinh [facility] Prescriptions as of 11/02/2023 - [...] blood sugar THREE TIMES DAILY - Insulin Exeter, Disposable, (BD ULTRA-FINE BEN PEN NEEDLE) 32 [...] 06/03/2015 Lumbar degen (more content not included)... [facility] 11-02-2023 Note HNO ID: [id number] Author: MARLEE CAREY MA Service: ? Author Type: Explosive Ordnance Handler Type: Progress Notes Filed: 11/02/2023 09:16 Note Text: POPULATION HEALTH NAVIGATION OUTREACH Action/FYI November 02, 2023 [place] HCC Care Gaps/Scheduling needs Annual Wellness Exam Dilated Eye Exam A1c Urine Albumin Mammogram CRCS Flu shot Outcome/Action Lm on Vm Marlee Carey MA Patient Identified by Name and : NO Outreach Outcome/Action Unable to reach patient: Left message Did you use a PCP flex slot to schedule this appointment? N/A Reason for Outreach HCC or suspected condition Payer: Payor: VINH [employer] AND [employer] / Plan: ANTHEM MEDICARE ADVANTAGE HMO / [...] Carey MA November 02, 2023 9:04 AM [facility] 10-13-2023 Note Patient Outreach (PH MEWO) TERRANCE BRAR ([id number]) 1965 F Date Time Provider Department 10/13/23 ELIZABETH JENNINGS PHMEJUVENTINO During your visit today, we recorded the [...] or Video Primary New visit types. Elizabeth Seniorgo, [facility] Allergies As of Date: 10/13/2023 Noted Allergy [...] 2 diabetes (HCC) [E11.9] Order(s):CONSULT TO PHARMACY [516059] Order #: [id number]: 1 Prescriptions as of 10/13/2023 - dulaglutide [...] blood sugar THREE TIMES DAILY - Insulin Exeter, Disposable, (BD ULTRA-FINE BEN PEN NEEDLE) 32 [...] obstruction or gangr*09/04/2019 (more content not included)... [facility] 10-13-2023 Note HNO ID: [id number] Author: Elizabeth Jennings RPh Service: ? Author [...] Primary New visit types. Elizabeth Jennings RPh [facility] 09-20-2023 Note Patient Outreach ( PO) TERRANCE BRAR ([id number]) 1965 F Date Time Provider Department 09/20/23 DWAYNE LOPEZ During your visit today, we recorded the following information about you: Ariadna Kyle 09/20/2023 8:52 AM Signed Terrance Brar is identified through a medication adherence outreach initiative based on pharmacy claims data from [employer] (insurer) for Statin medication(s). Patient is reviewed [...] blood sugar THREE TIMES DAILY - Insulin Exeter, Disposable, (BD ULTRA-FINE BEN PEN NEEDLE) 32 [...] finger, right [M65 (more content not included)... [facility] 09-20-2023 Note HNO ID: [id number] Author: Ariadna Kyle Service: ? Author Type: ? Type: Progress Notes Filed: 09/20/2023 8:52 AM Note Text: Terrance Brar is identified through a medication adherence outreach initiative based on pharmacy claims data from [employer] (insurer) for Statin medication(s). Patient is reviewed 09/20/23 due to medication adherence concerns with the following medications (name, strength, sig): atorvastatin 40mg, take 1 tablet daily. Per data/report, last fill date and days supply: due 09/20/23 Per reconcile dispense, last fill date and days supply: filled 08/19/23 (reversed) Outcome of review/outreach: (choose outcome source and status) -2nd attempt Left message Ariadna Kyle [facility] 09-20-2023 History of Present illness Narrative Terrance Brar is identified through a medication adherence outreach initiative based on pharmacy claims data from [place] (insurer) for Statin medication(s). Patient is reviewed [...] message Ariadna Kyle documented in this encounter [facility] 08-20-2023 Note HNO ID: [id number] Author: Sharonda Sanchez Service: ? Author Type: ? Type: Progress Notes Filed: 08/20/2023 4:30 PM Note Text: Terrance Brar is identified through a medication adherence outreach initiative based on pharmacy claims data from [employer] (insurer) for Non-insulin DM medication(s) and Statin [...] Both were out of refill [facility] History of Present illness Narrative Terrance Brar is identified through a medication adherence outreach initiative based on pharmacy claims data from [employer] (insurer) for Non-insulin DM medication(s) and Statin [...] Both were out of refill Sharonda Sanchez Plan Checker documented in this encounter [facility] 08-20-2023 Note Patient Outreach ( PO) TERRANCE BRAR ([id number]) 1965 F Date Time Provider Department 08/20/23 [facility] During your visit today, we recorded the following information about you: Sharonda Sanchez 08/20/2023 4:30 PM Signed Terrance Brar is identified through a medication adherence outreach initiative based on pharmacy claims data from [employer] (insurer) for Non-insulin DM medication(s) and Statin [...] dispense Both were out of refill Sharonda Daniel Plan Checker Allergies As of Date: 08/20/2023 Noted Allergy [...] blood sugar THREE TIMES DAILY - Insulin Exeter, Disposable, (BD ULTRA-FINE BEN PEN NEEDLE) 32 [...] 2 with neuro (more content not included)... [facility] 08-18-2023 Miscellaneous Notes Spoke with pt [...] Department Center 08/26/2023 1:40 PM 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 APRN.DEYANIRA [facility] Please review and refill if appropriate. Thank you. Sharonda Sanchez August 18, 2023 4:11 PM documented in this encounter [facility] 08-18-2023 Note Patient Outreach (ASHLEY TNAV) TERRANCE BRAR ([id number]) 1965 F Date Time Provider Department 08/18/23 IRENA HOOD During your visit today, we recorded the following information about you: Irena Hood, AMY 08/18/2023 1:52 PM Signed POPULATION HEALTH NAVIGATION [...] Care Gap or Scheduling/Wellness visits Payer: Payor: [employer] / Plan: [employer] HMO / Product Type: HMO / Care [...] blood sugar THREE TIMES DAILY - Insulin Exeter, Disposable, (BD ULTRA-FINE BEN PEN NEEDLE) 32 [...] 05/15/2014 06/03/2015 Gastric (more content not included)... [facility] 08-18-2023 Note HNO ID: [id number] Author: Irena Hood PSS Service: ? Author [...] Care Gap or Scheduling/Wellness visits Payer: Payor: [employer] / Plan: [employer] HMO / Product Type: HMO / Care [...] AMY Jeff August 18, 2023 7:58 AM [facility] 08-18-2023 History of Present illness Narrative POPULATION HEALTH NAVIGATION OUTREACH Action/FYI Pt due for: Return in about 3 months (around 07/08/2023) for Follow up with Jesica hroner routine. A1c CRCS Dilated retinal exam Mammogram [...] Care Gap or Scheduling/Wellness visits Payer: Payor: [employer] / Plan: [employer] HMO / Product Type: HMO / Care [...] 2023 7:58 AM documented in this encounter [facility] 08-10-2023 Note HNO ID: [id number] Author: Graciela Amaral PA-C Service: ? Author Type: Physician Salvage Mend Worker Type: Progress Notes Filed: 08/10/2023 6:06 PM Note Text: This note was created using [employer]. Subjective Terrance Brar is a 58 year [...] THREE TIMES DAILY 100 Strip 11 Insulin Exeter, Disposable, (BD ULTRA-FINE BEN PEN NEEDLE) 32 [...] BIOPSY SINGLE/MULTIPLE 03/25 (more content not included)... [facility] 06-24-2023 Miscellaneous Notes Letter mailed to [...] follow up visit. documented in this encounter [facility] 06-10-2023 Miscellaneous Notes Pt notified of Dr Lopez's message. Pt verbalizes understanding. Advises that she will go to [facility] as instructed. Miguel Ángel Santoyo [...] hour ago. She says she was in [facility] on 06/04 with abdominal pain [...] water/day 8. MEDICATIONS: Says she was in [facility] ER on 06/04 with abdominal [...] hemorrhoids, rectal surgery, rectal fissure Protocols used: [id number] documented in this encounter [facility] 05-24-2023 Miscellaneous Notes Second attempt to [...] Department Center 07/09/2023 1:00 PM Jesica Mina APRN.ENERGY ENGINEER [facility] Please review and refill if appropriate. Thank you. Debra Greer May 20, 2023 2:17 PM documented in this encounter [facility] 05-20-2023 Note HNO ID: [id number] Author: Debra Greer Service: ? Author Type: ? Type: Progress Notes Filed: 05/20/2023 2:17 PM Note Text: Terrance Brar is identified through a medication adherence outreach initiative based on pharmacy claims data from [employer] (insurer) for Non-insulin DM medication(s) and Statin [...] status) - No refills remaining Debra Greer [facility] 05-20-2023 History of Present illness Narrative Terrance Brar is identified through a medication adherence outreach initiative based on pharmacy claims data from [employer] (insurer) for Non-insulin DM medication(s) and Statin [...] remaining Debra Greer documented in this encounter [facility] 05-20-2023 Note Patient Outreach (ELISE RUSSELL) TERRANCE BRAR ([id number]) 1965 F Date Time Provider Department 05/20/23 DWAYNE LOPEZ During your visit today, we recorded the following information about you: Doc Greerley 05/20/2023 2:17 PM Signed Susital Brar is identified through a medication adherence outreach initiative based on pharmacy claims data from [employer] (insurer) for Non-insulin DM medication(s) and Statin [...] Date Reviewed: 04/23/2023 Reviewed by: Vernon Degroot APRN.ENERGY ENGINEER - Fully Assessed Reason for Visit: Allied [...] blood sugar THREE TIMES DAILY - Insulin Exeter, Disposable, (BD ULTRA-FINE BEN PEN NEEDLE) 32 [...] right hand [M65.311] more content not included)... [facility] 05-04-2023 Note HNO ID: [id number] Author: Ariadna Kyle Service: ? Author Type: ? Type: Progress Notes Filed: 05/04/2023 2:15 PM Note Text: Terrance rBar is identified through a medication adherence outreach initiative based on pharmacy claims data from [employer] (insurer) for Non-insulin DM medication(s) and Statin [...] status) -Tried calling, no answer Ariadna Kyle [facility] 05-04-2023 History of Present illness Narrative Terrance Brar is identified through a medication adherence outreach initiative based on pharmacy claims data from [employer] (insurer) for Non-insulin DM medication(s) and Statin [...] answer Ariadna Kyle documented in this encounter [facility] 05-04-2023 Note Patient Outreach ( POHE) TERRANCE BRAR ([id number]) 1965 F Date Time Provider Department 05/04/23 DWAYNE LOPEZ During your visit today, we recorded the following information about you: Ariadna Kyle 05/04/2023 2:15 PM Signed Terrance Brar is identified through a medication adherence outreach initiative based on pharmacy claims data from [employer] (insurer) for Non-insulin DM medication(s) and Statin [...] Date Reviewed: 04/23/2023 Reviewed by: Vernon Degroot APRN.ENERGY ENGINEER - Fully Assessed Prescriptions as of 05/04/2023 [...] blood sugar THREE TIMES DAILY - Insulin Exeter, Disposable, (BD ULTRA-FINE BEN PEN NEEDLE) 32 [...] little finger [M65.35 (more content not included)... [facility] 04-23-2023 Note HNO ID: [id number] Author: Vernon Degroot APRN.ENERGY ENGINEER Service: ? Author Type: Nurse Practitioner Type: [...] test blood sugar THREE TIMES DAILY Insulin Exeter, Disposable, (BD ULTRA-FINE BEN PEN NEEDLE) 32 [...] CHF, DM eye (more content not included)... [facility] 04-23-2023 History of Present illness Narrative [...] type 2 diabetes mellitus with neurological manifestations ([facility]) 02/27/2016 PAST SURGICAL HISTORY Procedure [...] test blood sugar THREE TIMES DAILY Insulin Exeter, Disposable, (BD ULTRA-FINE BEN PEN NEEDLE) 32 [...] and atraumatic. Nose: Nose normal. Mouth/Throat: Lips: [place]. Mouth: Mucous membranes are moist. Pharynx: Uvula [...] CLINDAMYCIN HCL 300 MG CAPSULE Vernon Degroot APRN.DEYANIRA documented in this encounter [facility] 04-08-2023 Note HNO ID: [id number] Author: Shital Menezes Service: ? Author Type: [...] Care Gap or Scheduling/Wellness visits Payer: Payor: [employer] / Plan: [employer] HMO / Product Type: HMO / Care [...] Shital Menezes April 08, 2023 1:51 PM [facility] 04-08-2023 Note Patient Outreach (AC CC) TERRANCE BRAR ([id number]) 1965 F Date Time Provider Department 04/08/23 PCP ([facility] During your visit today, we recorded the [...] Gap or Scheduling/Wellness visits Payer: Payor: VINH [employer] KENNEDY HANKS Causes / Plan: [employer] HMO / Product Type: HMO / Care [...] blood sugar THREE TIMES DAILY - Insulin Exeter, Disposable, (BD ULTRA-FINE BEN PEN NEEDLE) 32 [...] Quervain's tenosynovitis [M65.4] (more content not included)... [facility] 04-08-2023 History of Present illness Narrative POPULATION HEALTH NAVIGATION OUTREACH Action/FYI Pt scheduled Patient Identified by Name and : YES, via phone Outreach Outcome/Action Spoke to patient / parent / legal guardian: Patient scheduled Did you use a PCP flex slot to schedule this appointment? No Reason for Outreach Care Gap or Scheduling/Wellness visits Payer: Payor: [employer] / Plan: [employer] HMO / Product Type: HMO / Care [...] 2023 1:51 PM documented in this encounter [facility] 04-07-2023 Note HNO ID: [id number] Author: Dwayne Lopez MD Service: ? Author Type: Physician Type: Progress Notes Filed: 04/12/2023 8:45 AM Note Text: Chief Complaint Patient presents with: SNF d/c follow up HPI Terrance Brar is a 57 year old female who presents here today for Above Complaints.. Patient had been a resident of [facility] since 03/2022 with discharge on 03/25. [...] for handicap ced. Patient also evaluated at [facility] ED on 03/28 for constipation [...] ovaries remain VAG (more content not included)... [facility] 04-07-2023 Miscellaneous Notes Patient here for appointment. Patient scheduled for SNF discharge follow up today at 1320. Phone call to patient to remind her to bring all discharge information to appointment today. LM to call office. Mariama Sandoval MA documented in this encounter [facility] 04-07-2023 History of Present illness Narrative Chief Complaint Patient presents with: SNF d/c follow up HPI Ashleylindaneil Brar is a 57 year old female who presents here today for Above Complaints.. Patient had been a resident of [facility] since 03/2022 with discharge on 03/25. [...] for handicap placard. Patient also evaluated at [facility] ED on 03/28 for constipation [...] test blood sugar THREE TIMES DAILY Insulin [place], Disposable, (BD ULTRA-FINE BEN PEN NEEDLE) 32 [...] which included preparing to see the patient, [id number] patient care, completing clinical documentation, obtaining and/or reviewing separately obtained history, performing a medically appropriate examination, counseling and educating the patient/family/caregiver, and ordering medications, tests, or procedures. Dwayne Lopez MD documented in this encounter [facility] 03-31-2023 Note Patient Outreach (IN TMMN) TERRANCE BRAR ([id number]) 1965 F Date Time Provider Department 03/31/23 [...] for screening mammogram for breast cancer [Z12.31] Order(s):[facility] SCREENING [[id number]] Order #: [id number] FUTURE Prescriptions as of 04/05/2023 - loperamide [...] blood sugar THREE TIMES DAILY - Insulin [place], Disposable, (BD ULTRA-FINE BEN PEN NEEDLE) 32 [...] Encounter Status:Closed by VAN, PRODUSER on 04/05/23 [facility] 03-24-2023 Note HNO ID: [id number] Author: Dwayne Lopez MD Service: ? Author Type: Physician Type: Progress Notes Filed: 03/24/2023 11:44 AM Note Text: Chief Complaint Patient presents with: Establish Care HPI Terrance Brar is a 57 year old female who presents here today for Above Complaints. Accompanied today by her Shan. Patient has been a resident of [facility] since 03/2022 and is planning on being discharged tomorrow. States that she was admitted initially for weakness and inability to walk. This was attributed to her uncontrolled DM. Required 11 months of PT. I have not received any records from the shelter as of yet. Patient has paperwork today [...] chewable tablet GABRIELA (more content not included)... [facility] 03-24-2023 History of Present illness Narrative Chief Complaint Patient presents with: Establish Care HPI Susital Brar is a 57 year old female who presents here today for Above Complaints. Accompanied today by her Shan. Patient has been a resident of [facility] since 03/2022 and is planning on being discharged tomorrow. States that she was admitted initially for weakness and inability to walk. This was attributed to her uncontrolled DM. Required 11 months of PT. I have not received any records from the shelter as of yet. Patient has paperwork today [...] test blood sugar THREE TIMES DAILY Insulin [place], Disposable, (BD ULTRA-FINE BEN PEN NEEDLE) 32 [...] care visit. Will request discharge records from shelter along with labs obtained 1-2 weeks ago. Dwayne Lopez MD documented in this encounter [facility] 03-16-2023 Note HNO ID: [id number] Author: Sharonda Sanchez Service: ? Author Type: ? Type: Progress Notes Filed: 03/16/2023 12:49 PM Note Text: Terrance Brar is identified through a medication adherence outreach initiative based on pharmacy claims data from [employer] (insurer) for Non-insulin DM medication(s) and Statin [...] Call patient and had to leave an [facility] 03-16-2023 Note Patient Outreach ( PO) TERRANCE BRAR ([id number]) 1965 F Date Time Provider Department 03/16/23 NO PCP PHPOHE During your visit today, we recorded the following information about you: Sharonda Sanchez 03/16/2023 12:49 PM Signed Terrance Brar is identified through a medication adherence outreach initiative based on pharmacy claims data from [employer] (insurer) for Non-insulin DM medication(s) and Statin [...] Call patient and had to leave an [facility] Allergies As of Date: 03/16/2023 Noted Allergy [...] blood sugar THREE TIMES DAILY - Insulin [place], Disposable, (BD ULTRA-FINE BEN PEN NEEDLE) 32 [...] Renal stone [N20.0] (more content not included)... [facility] 02-23-2023 Note HNO ID: [id number] Author: Sharonda Sanchez Service: ? Author Type: ? Type: Progress Notes Filed: 02/23/2023 2:54 PM Note Text: Terrance Brar is identified through a medication adherence outreach initiative based on pharmacy claims data from [employer] (insurer) for Non-insulin DM medication(s) and Statin [...] and per call to patient/caregiver [facility] of Present illness Narrative Terrance Brar is identified through a medication adherence outreach initiative based on pharmacy claims data from [employer] (insurer) for Non-insulin DM medication(s) and Statin [...] and per call to patient/caregiver Sharonda Sanchez Plan Checker documented in this encounter [facility] 02-23-2023 Note Patient Outreach ( POHE) TERRANCE BRAR ([id number]) 1965 F Date Time Provider Department 02/23/23 NO PCP PHPOHE During your visit today, we recorded the following information about you: Sharonda Sanchez 02/23/2023 2:54 PM Signed Terrance Buenrostrones is identified through a medication adherence outreach initiative based on pharmacy claims data from [employer] (insurer) for Non-insulin DM medication(s) and Statin [...] and per call to patient/caregiver Sharonda Sanchez Plan Checker Allergies As of Date: 02/23/2023 Noted Allergy [...] blood sugar THREE TIMES DAILY - Insulin [place], Disposable, (BD ULTRA-FINE BEN PEN NEEDLE) 32 [...] [M65.351] 06/21/2017 Tri (more content not included)... [facility] 01-11-2023 Note HNO ID: [id number] Author: Aquilino Jha Service: ? Author Type: ? Type: Progress Notes Filed: 01/21/2023 9:43 AM Note Text: 01/11/23 attempt 3 - no answer [facility] 01-11-2023 History of Present illness Narrative 01/11/23 attempt 3 - no answer 01/04/23 attempt 2 - no answer LVM Pt chart reviewed as part of population health initiative focused on statin use in patients with diabetes (DM) or cardiovascular disease (CVD). Terrance Brar is identified through data from [employer] (insurer) as a potential candidate for statin [...] RPh PharmD BCACP documented in this encounter [facility] 01-04-2023 Note HNO ID: [id number] Author: Aquilino Jha Service: ? Author Type: ? Type: Progress Notes Filed: 01/21/2023 9:43 AM Note Text: 01/04/23 attempt 2 - no answer LVM [facility] 01-01-2023 Note HNO ID: [id number] Author: Aquilino Jha Service: ? Author Type: ? Type: Progress Notes Filed: 01/21/2023 9:43 AM Note Text: Pt chart reviewed as part of population health initiative focused on statin use in patients with diabetes (DM) or cardiovascular disease (CVD). Terrance Brar is identified through data from [employer] (insurer) as a potential candidate for statin [...] attempt 1 - no answer BERRY Jha [facility] 01-01-2023 Note HNO ID: [id number] Author: Gurjit Syed RPh Service: ? Author Type: Pharmacist Type: Progress Notes Filed: 01/21/2023 9:43 AM Note Text: Approving student documentation and outreach below. Gurjit Syed RPh PharmD [facility] 01-01-2023 Note Patient Outreach (PH POHE) TERRANCE BRAR ([id number]) 1965 F Date Time Provider Department 01/01/23 GURJIT SYED During your visit today, we recorded the following information about you: Gurjit Syed RPh 01/21/2023 9:43 AM Signed Approving student documentation and outreach below. Gurjit Syed [facility] PharmD BCAKHADIJAH Jha 01/21/2023 9:43 AM Signed Pt chart reviewed as part of population health initiative focused on statin use in patients with diabetes (DM) or cardiovascular disease (CVD). Terrance Brar is identified through data from [employer] (insurer) as a potential candidate for statin [...] type 2 diabetes mellitus with neurological manifestations ([facility]) 02/27/2016 Cholesterol, Total (mg/dL) Date [...] subcutaneously w MEALS. (more content not included)... 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
E11.69 - Hyperlipidemia associated with type 2 diabetes mellitus ([facility]) - [id number] Last Billed 12/26/2019
E21.3 - Hyperparathyroidism ([facility]) - [id number] Last Billed 09/18/2019
patient also due for [...] HCC or suspected condition Payer: Payor: [employer] / Plan: [employer] HMO / Product Type: HMO / Care [...] 2022 12:55 PM documented in this encounter [facility] documented as of this encounter (statuses as of 04/03/2022) [facility] History of Past illness Narrative* Problem [...] of this encounter (statuses as of 01/21/2023) [facility] History of Past illness Narrative* Problem [...] of this encounter (statuses as of 02/24/2023) [facility] History of Past illness Narrative* Problem [...] of this encounter (statuses as of 03/24/2023) [facility] History of Past illness Narrative* Problem Noted Date Resolved Date Trigger thumb of left hand 07/23/201501/27 Carpal tunnel syndrome, left 05/27/201502/2017 Carpal tunnel syndrome, right 05/27/2015 Constipation 03/12/2015 06/03/2015 Anemia 03/12/2015 02/27/2016 Abdominal pain, right upper quadrant 06/05/2014 06/03/2015 Abdominal pain, epigastric 05/15/201406/03 Routine General Medical Exam ination at a [facility] 12/10/2008 06/03/2015 Overview: HCT 37.6% [...] of this encounter (statuses as of 04/07/2023) [facility] History of Past illness Narrative* Problem [...] of this encounter (statuses as of 04/08/2023) [facility] of Past illness Narrative* Problem [...] of this encounter (statuses as of 04/12/2023) [facility] of Past illness Narrative* Problem [...] of this encounter (statuses as of 04/23/2023) [facility] of Past illness Narrative* Problem [...] of this encounter (statuses as of 05/05/2023) [facility] of Past illness Narrative* Problem [...] of this encounter (statuses as of 05/20/2023) [facility] illness Narrative* Problem [...] of this encounter (statuses as of 05/24/2023) [facility] Past illness Narrative* Problem [...] of this encounter (statuses as of 06/10/2023) [facility] Past illness Narrative* Problem [...] of this encounter (statuses as of 06/30/2023) [facility] illness Narrative* Problem [...] of this encounter (statuses as of 08/18/2023) [facility] Past illness Narrative* Problem [...] of this encounter (statuses as of 08/19/2023) [facility] Narrative* Problem [...] 12-31, 37% in 03-02, 42% in 07-03 EDMUDNO in 03-[address] Mckeon: no details [...] of this encounter (statuses as of 08/20/2023) [facility] of Past illness Narrative* Problem [...] A1C 11% in 10-01 Creat 0.6 in 12-08, 0.7 in 1-09, 0.8 in 3-09, 0.9 in 07-03 Alb/Creat 29 in 10-01 NS for eye appt in 01-31 documented as of this encounter (statuses as of 09/20/2023) [facility] note* Diagnosis Globus sensation- Primary Gastrointestinal malfunction arising from mental factors Gastroesophageal reflux disease, unspecified whether esophagitis present [facility] Diagnosis Generalized weakness- Primary Other [...] type dependence, continuous [facility] Diagnosis Toothache- Primary Unspecified disorder of the teeth and supporting structures documented in this encounter [facility] Summary Purpose Family History No Family History Records FoundNo Family History Records FoundNo Family History Records FoundNo Family History Records FoundNo Family History Records FoundNo Family History Records Found Advance Directives No Advanced Directives Records FoundDocuments on File Type Date Recorded Patient Baseball Sewer Hand Expl anation Advance Directive(s) 10/10/2020 10:19 AM [...] mellitus (HCC) Procedures CONSULT TO PODIATRY OFFICE/OUTPATIENT [facility] 60-74 MINUTES Dwayne Lopez MD [address] [place] [address] Referral ID Status Reason Start Date Expiration Date Visits Requested Visits Authorized [id number] Pending Review PCP Requested Referral 04/07/2023 04/06/2024 1 1 Specialty Diagnoses / Procedures Referred By Contac t Referred To Contact General Surgery Diagnoses Globus sensation Screening for colon cancer Procedures CONSULT TO GENERAL SURGERY OFFICE/OUTPATIENT [facility] 60-74 MINUTES Dwayne Lopez MD [address] [place] [address] Referral ID Status Reason Start Date Expiration Date Visits Requested Visits Authorized [id number] Pending Review PCP Requested Referral 04/07/2023 04/06/2024 1 1 Specialty Diagnoses / Procedures Referred By Contac t Referred To Contact Ophthalmology Diagnoses Diabetes mellitus type 2 with neurological manifestations (HCC) Change in vision Procedures CONSULT TO OPHTHALMOLOGY OFFICE/OUTPATIENT [facility] 60-74 MINUTES Dwayne Lopez MD [address] [place] [address] Referral ID Status Reason Start Date Expiration Date Visits Requested Visits Authorized [id number] Pending Review PCP Requested Referral 04/07/2023 04/06/2024 1 1 Additional Source Comments INFORMATION SOURCE (unrecogn ized section and content) DATE CREATED AUTHOR AUTHOR'S ORGANIZ ATION 04/14/2018 [facility] DATE CREATED AUTHOR AUTHOR'S ORGANIZ ATION 10/05/2018 [facility] DATE CREATED AUTHOR AUTHOR'S ORGANIZ ATION 10/19/2019 [facility] DATE CREATED AUTHOR AUTHOR'S ORGANIZ ATION 09/28/2020 [facility] DATE CREATED AUTHOR AUTHOR'S ORGANIZ ATION 11/03/2023 [facility] Source Comments (unrecognize d section and content) In the event this informatio n is protected by the Federal Confidentiality of Alcohol and Drug Abuse Patient Records regulations: The Federal rules restrict any use of the information to criminally investigate or prosecute any alcohol or drug abuse patient.[facility] event this information is protected by the Federal Confidentiality of Alcohol and Drug Abuse Patient Records regulations: The Federal rules restrict any use of the information to criminally investigate or prosecute any alcohol or drug abuse patient.[facility] the event this information is protected by the Federal Confidentiality of Alcohol and Drug Abuse Patient Records regulations: The Federal rules restrict any use of the information to criminally investigate or prosecute any alcohol or drug abuse patient.[facility] the event this information is protected by the Federal Confidentiality of Alcohol and Drug Abuse Patient Records regulations: The Federal rules restrict any use of the information to criminally investigate or prosecute any alcohol or drug abuse patient.[facility] the event this information is protected by the Federal Confidentiality of Alcohol and Drug Abuse Patient Records regulations: The Federal rules restrict any use of the information to criminally investigate or prosecute any alcohol or drug abuse patient.[facility] the event this information is protected by the Federal Confidentiality of Alcohol and Drug Abuse Patient Records regulations: The Federal rules restrict any use of the information to criminally investigate or prosecute any alcohol or drug abuse patient.[facility] the event this information is protected by the Federal Confidentiality of Alcohol and Drug Abuse Patient Records regulations: The Federal rules restrict any use of the information to criminally investigate or prosecute any alcohol or drug abuse patient.[facility] the event this information is protected by the Federal Confidentiality of Alcohol and Drug Abuse Patient Records regulations: The Federal rules restrict any use of the information to criminally investigate or prosecute any alcohol or drug abuse patient.[facility] the event this information is protected by the Federal Confidentiality of Alcohol and Drug Abuse Patient Records regulations: The Federal rules restrict any use of the information to criminally investigate or prosecute any alcohol or drug abuse patient.[facility] the event this information is protected by the Federal Confidentiality of Alcohol and Drug Abuse Patient Records regulations: The Federal rules restrict any use of the information to criminally investigate or prosecute any alcohol or drug abuse patient.[facility] the event this information is protected by the Federal Confidentiality of Alcohol and Drug Abuse Patient Records regulations: The Federal rules restrict any use of the information to criminally investigate or prosecute any alcohol or drug abuse patient.[facility] the event this information is protected by the Federal Confidentiality of Alcohol and Drug Abuse Patient Records regulations: The Federal rules restrict any use of the information to criminally investigate or prosecute any alcohol or drug abuse patient.[facility] the event this information is protected by the Federal Confidentiality of Alcohol and Drug Abuse Patient Records regulations: The Federal rules restrict any use of the information to criminally investigate or prosecute any alcohol or drug abuse patient.[facility] the event this information is protected by the Federal Confidentiality of Alcohol and Drug Abuse Patient Records regulations: The Federal rules restrict any use of the information to criminally investigate or prosecute any alcohol or drug abuse patient.[facility] the event this information is protected by the Federal Confidentiality of Alcohol and Drug Abuse Patient Records regulations: The Federal rules restrict any use of the information to criminally investigate or prosecute any alcohol or drug abuse patient.[facility] the event this information is protected by the Federal Confidentiality of Alcohol and Drug Abuse Patient Records regulations: The Federal rules restrict any use of the information to criminally investigate or prosecute any alcohol or drug abuse patient.[facility] the event this information is protected by the Federal Confidentiality of Alcohol and Drug Abuse Patient Records regulations: The Federal rules restrict any use of the information to criminally investigate or prosecute any alcohol or drug abuse patient.[facility] Reason for Visit (unrecogniz ed section [...] Date Comments Population Health Navigation Outreach 08/18/2023 [place] care gaps Reason Onset Date Comments Refill Request 08/18/2023 Reason Onset Date Comments Allied Health Visit 08/20/2023 Medication A dherence Outreach Reason Onset Date Comments Allied Health Visit 09/20/2023 Medication A dherence Outreach Care Teams (unrecognized sec tion and content) Managing Cognitive Engineer Relationship Specialty Start Date End Date Dwayne Lopez MD [address], [place] [id number] PCP - General Family Medicine 03/24/23 Managing Cognitive Engineer Relationship Specialty Start Date End Date Dwayne Lopez MD [address], [place] [id number] PCP - General Family Medicine 03/24/23 Managing Cognitive Engineer Relationship Specialty Start Date End Date Dwayne Lopez MD [address] [facility] [place] [address] PCP - General Family Medicine 03/24/23 Managing Cognitive Engineer Relationship Specialty Start Date End Date Dwayne Lopez MD [address] [facility] [place] [address] PCP - General Family Medicine 03/24/23 Managing Cognitive Engineer Relationship Specialty Start Date End Date Dwayne Lopez MD [address] [facility] [place] [address] PCP - General Family Medicine 03/24/23 Managing Cognitive Engineer Relationship Specialty Start Date End Date Dwayne Lopez MD [address] [facility] [place] [address] PCP - General Family Medicine 03/24/23 Managing Cognitive Engineer Relationship Specialty Start Date End Date Dwayne Lopez MD [address] [facility] [place] [address] PCP - General Family Medicine 03/24/23 Managing Cognitive Engineer Relationship Specialty Start Date End Date Dwayne Lopez MD [address] [facility] [place] [address] PCP - General Family Medicine 03/24/23 Managing Cognitive Engineer Relationship Specialty Start Date End Date Dwayne Lopez MD [address] [facility] [place] [address] PCP - General Family Medicine 03/24/23 Managing Cognitive Engineer Relationship Specialty Start Date End Date Dwayne Lopez MD [address] [facility] [place] [address] PCP - General Family Medicine 03/24/23 Managing Cognitive Engineer Relationship Specialty Start Date End Date Dwayne Lopez MD [address] [place] [address] PCP - General Family Medicine 03/24/23 FOR [...] BE BASED ON THE PRIMARY CLINICAL RECORDS. [employer] provides no warranty or guarantee of the accuracy or completeness of information in this document.
[2023-12-24 08:21] LABS: Absolute Lymphocyte Count 2.44 X10^3/uL (0.83-4.51); Absolute Neutrophil Count 2.2 X10^3/uL (2.0-7.7); Basophil# 0.03 X10^3/uL; Basophil% 0.6 % (0-1); Eosinophil# 0.05 X10^3/uL; Hematocrit 33.8 % (37-47); Hemoglobin 11.2 g/dL (12.0-15.0); Lymphocyte # 2.44 X10^3/ul (0.83-4.51); Mean Corp Hgb Conc 33.1 g/dL (32-36); Mean Corpuscular Hgb 30.2 pg (27.0-32.0); Mean Corpuscular Volume 91.1 fL (81-99); Mean Platelet Vol. 9.5 fl (6.2-12.0); Monocyte# 0.35 X10^3/uL; Monocyte% 6.9 % (0-10); NRBC Flagged by Analyzer 0 % (0-5); Neutrophil % 43.3 % (47-70); Platelet Count 229 K/mm3 (150-450); RBC Distribution Width CV 13.7 % (11.6-14.6); Red Blood Count 3.71 M/mm3 (4.2-5.4); White Blood Count 5.1 K/mm3 (4.4-11.0)
[2023-12-24 08:34] LABS: Anion Gap 5 (5-15); BUN 22 mg/dL (7-18); BUN/Creat Ratio 20.2 RATIO (10-20); Calcium,Total 8.7 mg/dL (8.5-10.1); Chloride 105 mmol/L (98-107); Creatinine, Serum 1.09 mg/dL (0.55-1.02); EST Glomerular Filtration Rate 54 mL/min (>60); Est Glom Filt Rate - Afr Amer 66 mL/min (>60); Glucose 215 mg/dL (74-106); Potassium 4.1 mmol/L (3.5-5.1); Sodium Level 136 mmol/L (136-145)
== END ==
LOC: OLS.WHLEAS 05:00
PROVIDERS: PCP Family Medicine; Visit Provider Internal Medicine
DX: E11.22 Type 2 diabetes mellitus with diabetic chronic kidney disease (principal); N18.9 Chronic kidney disease, unspecified
CPT/HCPCS: 36415; 80048; 85025

== ENCOUNTER → 2023-12-29 | Outpatient (REF) | payer MEDICARE, MEDICAID, SELFPAY ==
[2023-12-30 08:06] LABS: Color, Urine Yellow (Yellow); Glucose, Dipstick 1000 mg/dl (Normal); Ketone-Dipstick Negative (Negative); Leukocyte Esterase-Dipstick 500 /ul (Negative); Nitrite-Dipstick Negative (Negative); Occult Blood-Urine 250 /ul (Negative); Protein-Dipstick 30 mg/dl (Negative); Specific Gravity, Urine 1.005 (1.002-1.030); Urine Bilirubin Dipstick Negative (Negative); Urine Clarity Cloudy (Clear); Urine Urobilinogen Normal (Normal); Urine pH 6.5 (5.0 - 8.0)
== END ==
LOC: OLS.WHLEAS 14:00
PROVIDERS: PCP Family Medicine; Visit Provider Internal Medicine
DX: N30.00 Acute cystitis without hematuria (principal)
CPT/HCPCS: 81002; 87077; 87086; 87088; 87186

== ENCOUNTER → 2023-12-31 | Outpatient (REF) | payer MEDICARE, MEDICAID, SELFPAY ==
--- OUTSIDE RECORDS SUMMARY | 2023-12-31 04:56 | XMS RPT_ITS | CCD ---
Author Name Unknown Address [address] [place] [address] Organization [facility] Care Team Providers Care Central Office Worker Name Role Phone BRUCE CALIXTO Unavailable Unavailable [...] Translations: [CIPROFLOXACIN] Drug Allergy 8 Swelling [facility] Repository (20 sources) codeine; Translations: [CODEINE] Drug Allergy 4 Hives, Itching [facility] Repository (20 sources) ibuprofen; Translations: [IBUPROFEN] Drug Allergy 7 Hives [facility] Repository (19 sources) metFORMIN; Translations: [METFORMIN] Drug Allergy 7 Intolerance [facility] Repository (19 sources) naproxen; Translations: [NAPROXEN] Drug Allergy 7 Hives [facility] Repository (19 sources) Penicillins; Translations: [PENICILLINS] Propensity to adverse reactions (disorder) 7 [facility] Repository (19 sources) traMADol; Translations: [TRAMADOL HCL] Drug Allergy 7 [facility] Repository (1 source) Ciprofloxacin Drug Allergy 7 [facility] Work Phone: [phone] (1 source) Ketorolac Drug Allergy itching [facility] Work Phone: (1 source) Naproxen Drug Allergy 0 [facility] Work Phone: (1 source) Penicillin V Drug Allergy hives [facility] Work Phone: (1 source) traMADol Drug Allergy face swells [facility] Work Phone: (18 sources) celecoxib; Translations: [CELECOXIB] Drug Allergy 0 Rash [facility] (18 sources) Ketorolac; Translations: [KETOROLAC] Drug Allergy 9 GI Upset [facility] Work Phone: Medications Current Medications [...] daily as needed for anxiety attacks ALPRAZOLAM [phone] Beth K Angle MA aspirin 81 mg [...] 100 [degF] Vernon Degroot APRN.CNP Work Phone: [facility] 04-23-2023 14:35-0400 Body weight 81.1 kg Vernon Degroot APRN.CNP Work Phone: [facility] 04-23-2023 14:35-0400 Diastolic blood pressure 82 mm[Hg] Vernon Degroot APRN.CNP Work Phone: [facility] 04-23-2023 14:35-0400 Heart rate 94 /min Vernon Degroot APRN.CNP Work Phone: [facility] 04-23-2023 14:35-0400 Respiratory rate 21 /min Vernon eDgroot APRN.CNP Work Phone: [facility] 04-23-2023 14:35-0400 SaO2% (BldA) [Mass fraction] 99 % Vernon Degroot RECREATION PROGRAM COORDINATOR.IRON MINER Work Phone: [facility] 04-23-2023 14:35-0400 Systolic blood pressure 130 mm[Hg] Vernon Degroot APRN.IRON MINER Work Phone: [facility] 04-07-2023 13:09-0400 Body height 152.4 cm Dwayne Lopez MD Work Phone: [facility] 04-07-2023 13:09-0400 Body weight 81.65 kg Dwayne Lopez MD Work Phone: [facility] 04-07-2023 13:09-0400 Diastolic blood pressure 74 mm[Hg] Dwayne Lopez MD Work Phone: [facility] 04-07-2023 13:09-0400 Heart rate 80 /min Dwayne Lopez MD Work Phone: [facility] 04-07-2023 13:09-0400 Respiratory rate 16 /min Dwayne Lopez MD Work Phone: [facility] 04-07-2023 13:09-0400 Systolic blood pressure 112 mm[Hg] Dwayne Lopez MD Work Phone: [facility] 03-24-2023 10:18-0400 Body weight 83.92 kg Dwayne Lopez MD Work Phone: [facility] 03-24-2023 10:18-0400 Diastolic blood pressure 64 mm[Hg] Dwayne Lopez MD Work Phone: [facility] 03-24-2023 10:18-0400 Heart rate 84 /min Dwayne Lopez MD Work Phone: [facility] 03-24-2023 10:18-0400 Respiratory rate 16 /min Dwayne Lopez MD Work Phone: [facility] 03-24-2023 10:18-0400 Systolic blood pressure 110 mm[Hg] Dwayne Lopez MD Work Phone: [facility] 07-28-2017 17:13-0400 BMI (Body Mass Index) 32.38 kg/m2 Angelika De La Torre LPN [facility] Work Phone: 07-28-2017 17:13-0400 Body Temperature 98.3 [degF] Angelika De La Torre LPN [facility] Work Phone: 07-28-2017 17:13-0400 BP Diastolic 76 mm[Hg] Angelika De La Torre LPN [facility] Work Phone: 07-28-2017 17:13-0400 BP Systolic 124 mm[Hg] Angelika De La Torre LPN [facility] Work Phone: 07-28-2017 17:13-0400 Height 152.4 cm Angelika De La Torre LPN [facility] Work Phone: 07-28-2017 17:13-0400 Pulse (Heart Rate) 72 /min Angelika De La Torre LPN [facility] Work Phone: 07-28-2017 17:13-0400 Respiratory Rate 15 /min Angelika De La Torre LPN [facility] Work Phone: 07-28-2017 17:13-0400 Weight 75.21 kg Angelika De La Torre LPN [facility] Work Phone: 02-04-2012 09:28-0400 BSA (Body Surface Area) 1.75 m2 Angelika De La Torre LPN [facility] Work Phone: Encounters Encounter Date [...] Detail Author Start: 06-09-2031 Urine microalbumin profile [facility] Start: 04-07-2024 3 comp foot exam completed DIABETIC FOOT EXAM [facility] Start: 04-07-2024 ANNUAL PCP TEAM RANCH COOK ASHELY DISEASE VISIT ANNUAL PCP TEAM CHRONIC DISEASE VISIT [facility] Start: 04-07-2024 COVID-19 VACCINE (4 - Booster for Pfizer series) COVID-19 VACCINE (4 - Booster for Pfizer series) [facility] Immunizations Immunization Date Immunization Notes Care Provider Fa cility 04-07-2023 pneumococcal (PCV20) vaccine, 20 valent (PREVNAR 20) Dwayne Lopez MD Work Phone: [facility] 04-07-2023 pneumococcal Conjuga te, unspecified formulation Dwayne Lopez MD Work Phone: [facility] Work Phone: 06-09-2021 tetanus toxoid, redu juan c diphtheria toxoid, and acellular pertussis vaccine, adsorbed Shital Jorge [facility] 09-18-2019 influenza, injectabl e, quadrivalent, contains preservative Shital Patel MA [facility] 09-18-2019 influenza virus vaccine, unspecified formulation Irena Sana REYES [facility] 08-17-2019 influenza, injectabl e, quadrivalent, preservative free Shital Patel MA [facility] 07-04-2018 influenza, injectabl e, quadrivalent, preservative free Shital Patel [facility] 07-04-2018 pneumococcal polysaccharide vaccine, 23 valent Shital Patel [facility] 09-07-2013 influenza, seasonal, injectable, preservative free Shital Patel [facility] 11-23-2012 pneumococcal polysaccharide vaccine, 23 valent Shital Patel [facility] 08-14-2010 influenza, seasonal, injectable [facility] Work Phone: 03-10-2010 influenza, seasonal, injectable; Translations: [Follow Up Appt 2 weeks] Angelika De La Torre LPN [facility] Work Phone: 09-11-2009 novel [id number], preservative-free, injectable Shital Patel [facility] 10-10-2008 pneumococcal polysaccharide vaccine, 23 valent Shital Patel [facility] 08-25-2008 influenza virus vaccine, unspecified formulation Shital Patel [facility] Work Phone: 04-24-2006 tetanus and diphther ia toxoids, adsorbed, preservative free, for adult use (2 Lf of tetanus toxoid and 2 Lf of diphtheria toxoid) Shital Patel [facility] Work Phone: Payers Date Payer Category Payer Unknown ANTHEM BLUE CROS S AND BLUE SHIELD ANTHEM MEDIBLUE O [id number] 2022-[facility] [phone] [address] [place] [address] O [id number] 2022 Unknown ANTHEM BLUE CROS S AND BLUE SHIELD ANTHEM MEDIBLUE O [id number] 2022-Present [phone] [address] [place] [address] HMO [id number] 2022 Unknown [id number] 2014 Medicaid [id number] Unknown [id number] Unknown [id number] Unknown [id number] Unknown [id number] Unknown [id number] Social History Date Type Detail Facility Start: 10-21-2020 End: 03-24-2023 Tobacco smoking status NHIS Ex-smoker [facility] Start: 06-25-1977 End: 10-07-2020 History of tobacco use Current smoker [facility] Start: 06-25-1977 End: 10-07-2020 History of tobacco use Cigarette Smoker [facility] Start: 10-21-2020 End: 11-19-2022 Cigarettes smoked current (pack per day) - Reported 0.5 [facility] Start: 10-21-2020 End: 03-24-2023 Tobacco use and exposure Smokeless tobacco non-user [facility] Start: 10-31-2021 End: 08-10-2023 Alcohol intake Current non-drinker of alcohol (finding) [facility] Start: 05-27-2015 History SDOH Alcohol Comment Seldom- twice yearly [facility] Start: 1965 Sex Assigned At Not on file C [facility] Start: 11-19-2022 End: 04-23-2023 Tobacco use panel [facility] National Score (1-10 0), lower number is lower risk 70 [facility] Medical Equipment Procedure Code Equipment Code Equipment Origin al Text Equipment Identifier Dates TEST STRIPS TEST STRIPS [id number] Start: 08-14-2010 LANCET LANCET [id number] Start: 08-14-2010 INSULIN PEN NEEDLE [id number] Start: 08-14-2010 Goals Date Patient Goal Desired Activity /State Personal health goal Clinical Notes 07-23-2015 to 11-02-2023 Ariadna Kyle - 09/20/2023 8:48 AM Sharonda Delong - 08/20/2023 4:22 PM EDTTelephone Encounter - Mary Ellen Karimi LPN - 08/18/2023 4:53 PM EDTIrena Hood PSS - 08/18/2023 7:58 AM EDT Note Date & Type Note Facility 11-02-2023 Note Patient Outreach (NE TNAV) TERRANCE BRAR ([id number]) 1965 F Date Time Provider Department 11/02/23 [...] HCC or suspected condition Payer: Payor: [employer] / Plan: [employer] MEDICARE ADVANTAGE HMO / [...] Health Navigation Outreach [3910] Cmt: Vinh [facility] Prescriptions as of 11/02/2023 - dulaglutide (TRULICITY) [...] blood sugar THREE TIMES DAILY - Insulin Hollis, Disposable, (BD ULTRA-FINE BEN PEN NEEDLE) 32 [...] [E04.1] 12/07/2008 Routine General Medical Examination at [facility]*12/10/2008 06/03/2015 Benign neoplasm of colon [D12.6] 05/15/2014 Abdominal pain, epigastric [R10.13] 05/15/2014 06/03/2015 Gastric ulcer [K25.9] 05/15/2014 Abdominal pain, right upper quadrant [R10.11] 06/05/2014 06/03/2015 Lumbar degen (more content not included)... [facility] 11-02-2023 Note HNO ID: [id number] Author: MARLEE CAREY MA Service: ? Author Type: Clinical Research Nurse Type: Progress Notes Filed: 11/02/2023 09:16 Note Text: POPULATION HEALTH NAVIGATION OUTREACH Action/FYI November 02, 2023 [facility] HCC Care Gaps/Scheduling needs Annual Wellness Exam Dilated Eye Exam A1c Urine Albumin Mammogram CRCS Flu shot Outcome/Action Lm on Vm Marlee Carey MA Patient Identified by Name and : NO Outreach Outcome/Action Unable to reach patient: Left message Did you use a PCP flex slot to schedule this appointment? N/A Reason for Outreach HCC or suspected condition Payer: Payor: [employer] / Plan: ANTHEM MEDICARE ADVANTAGE HMO / [...] Depression Assessment Never done Navigation Signature: Marlee Craey MA November 02, 2023 9:04 AM [facility] 10-13-2023 Note Patient Outreach (PH MEWO) TERRANCE BRAR ([id number]) 1965 F Date Time Provider Department 10/13/23 [...] Video Primary New visit types. Elizabeth Seniorgo, [facility] Allergies As of Date: 10/13/2023 Noted Allergy [...] 2 diabetes (HCC) [E11.9] Order(s):CONSULT TO PHARMACY [416666] Order #: [id number]: 1 Prescriptions as of 10/13/2023 - dulaglutide [...] blood sugar THREE TIMES DAILY - Insulin Hollis, Disposable, (BD ULTRA-FINE BEN PEN NEEDLE) 32 [...] [E04.1] 12/07/2008 Routine General Medical Examination at [facility]*12/10/2008 06/03/2015 Benign neoplasm of colon [D12.6] 05/15/2014 [...] obstruction or gangr*09/04/2019 (more content not included)... [facility] 10-13-2023 Note HNO ID: [id number] Author: Elizabeth Jennings RPh Service: ? Author [...] Primary New visit types. Elizabeth Jennings RPh [facility] 09-20-2023 Note Patient Outreach ( PO) TERRANCE BRAR ([id number]) 1965 F Date Time Provider Department 09/20/23 DWAYNE LOPEZ During your visit today, we recorded the following information about you: Ariadna Kyle 09/20/2023 8:52 AM Signed Terrance Brar is identified through a medication adherence outreach initiative based on pharmacy claims data from [employer] (insurer) for Statin medication(s). Patient is reviewed [...] blood sugar THREE TIMES DAILY - Insulin Hollis, Disposable, (BD ULTRA-FINE BEN PEN NEEDLE) 32 [...] [E04.1] 12/07/2008 Routine General Medical Examination at [facility]*12/10/2008 06/03/2015 Benign neoplasm of colon [D12.6] 05/15/2014 [...] finger, right [M65 (more content not included)... [facility] 09-20-2023 Note HNO ID: [id number] Author: Ariadna Kyle Service: ? Author Type: ? Type: Progress Notes Filed: 09/20/2023 8:52 AM Note Text: Terrance Brar is identified through a medication adherence outreach initiative based on pharmacy claims data from [employer] (insurer) for Statin medication(s). Patient is reviewed 09/20/23 due to medication adherence concerns with the following medications (name, strength, sig): atorvastatin 40mg, take 1 tablet daily. Per data/report, last fill date and days supply: due 09/20/23 Per reconcile dispense, last fill date and days supply: filled 08/19/23 (reversed) Outcome of review/outreach: (choose outcome source and status) -2nd attempt Left message Ariadna Kyle [facility] 09-20-2023 History of Present illness Narrative Terrance Brar is identified through a medication adherence outreach initiative based on pharmacy claims data from [employer] (insurer) for Statin medication(s). Patient is reviewed [...] message Ariadna Kyle documented in this encounter [facility] 08-20-2023 Note HNO ID: [id number] Author: Sharonda Sanchez Service: ? Author Type: ? Type: Progress Notes Filed: 08/20/2023 4:30 PM Note Text: Terrance Brar is identified through a medication adherence outreach initiative based on pharmacy claims data from [employer] (insurer) for Non-insulin DM medication(s) and Statin [...] Both were out of refill [facility] History of Present illness Narrative Terracne Brar is identified through a medication adherence outreach initiative based on pharmacy claims data from [employer] (insurer) for Non-insulin DM medication(s) and Statin [...] Both were out of refill [employer]onda [employer] documented in this encounter [facility] 08-20-2023 Note Patient Outreach ( PO) TERRANCE BRAR ([id number]) 1965 F Date Time Provider Department 08/20/23 [facility] During your visit today, we recorded the following information about you: Sharonda Sanchez 08/20/2023 4:30 PM Signed Terrance Brar is identified through a medication adherence outreach initiative based on pharmacy claims data from [employer] (insurer) for Non-insulin DM medication(s) and Statin [...] Both were out of refill Sharonda [employer] Allergies As of Date: 08/20/2023 Noted Allergy [...] blood sugar THREE TIMES DAILY - Insulin Hollis, Disposable, (BD ULTRA-FINE BEN PEN NEEDLE) 32 [...] [E04.1] 12/07/2008 Routine General Medical Examination at [facility]*12/10/2008 06/03/2015 Benign neoplasm of colon [D12.6] 05/15/2014 [...] 2 with neuro (more content not included)... [facility] 08-18-2023 Miscellaneous Notes Spoke with pt [...] Department Center 08/26/2023 1:40 PM 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 APRN.DEYANIRA [facility] Please review and refill if appropriate. Thank you. Sharonda Sanchez August 18, 2023 4:11 PM documented in this encounter [facility] 08-18-2023 Note Patient Outreach (ASHLEY TNAV) TERRANCE BRAR ([id number]) 1965 F Date Time Provider Department 08/18/23 [...] Care Gap or Scheduling/Wellness visits Payer: Payor: [employer] / Plan: [employer] HMO / Product Type: HMO / Care [...] blood sugar THREE TIMES DAILY - Insulin Hollis, Disposable, (BD ULTRA-FINE BEN PEN NEEDLE) 32 [...] [E04.1] 12/07/2008 Routine General Medical Examination at [facility]*12/10/2008 06/03/2015 Benign neoplasm of colon [D12.6] 05/15/2014 Abdominal pain, epigastric [R10.13] 05/15/2014 06/03/2015 Gastric (more content not included)... [facility] 08-18-2023 Note HNO ID: [id number] Author: Irena Hood PSS Service: ? Author [...] Care Gap or Scheduling/Wellness visits Payer: Payor: [employer] / Plan: [employer] HMO / Product Type: HMO / Care [...] AMY Jeff August 18, 2023 7:58 AM [facility] 08-18-2023 History of Present illness Narrative [...] Care Gap or Scheduling/Wellness visits Payer: Payor: [employer] / Plan: [employer] HMO / Product Type: HMO / Care [...] 2023 7:58 AM documented in this encounter [facility] 08-10-2023 Note HNO ID: [id number] Author: Graciela Amaral PA-C Service: ? Author Type: Physician Collarette Separator Type: Progress Notes Filed: 08/10/2023 6:06 PM Note Text: This note was created using DoublePositive. Subjective Terrance Brar is a 58 year [...] THREE TIMES DAILY 100 Strip 11 Insulin Hollis, Disposable, (BD ULTRA-FINE BEN PEN NEEDLE) 32 [...] BIOPSY SINGLE/MULTIPLE 03/25 (more content not included)... [facility] 06-24-2023 Miscellaneous Notes Letter mailed to [...] follow up visit. documented in this encounter [facility] 06-10-2023 Miscellaneous Notes Pt notified of Dr Lopez's message. Pt verbalizes understanding. Advises that she will go to [facility] as instructed. Miguel Ángel Santoyo LPN Recommend [...] hour ago. She says she was in [facility] on 06/04 with abdominal pain and received [...] water/day 8. MEDICATIONS: Says she was in [facility] ER on 06/04 with abdominal pain and [...] hemorrhoids, rectal surgery, rectal fissure Protocols used: [id number] documented in this encounter [facility] 05-24-2023 Miscellaneous Notes Second attempt [...] Department Center 07/09/2023 1:00 PM Jesica Mina APRN.IRON MINER [facility] Please review and refill if appropriate. Thank you. Debra Greer May 20, 2023 2:17 PM documented in this encounter [facility] 05-20-2023 Note HNO ID: [id number] Author: Debra Greer Service: ? Author Type: ? Type: Progress Notes Filed: 05/20/2023 2:17 PM Note Text: Terrance Brar is identified through a medication adherence outreach initiative based on pharmacy claims data from [employer] (insurer) for Non-insulin DM medication(s) and Statin [...] status) - No refills remaining Debra Greer [facility] 05-20-2023 History of Present illness Narrative Terrance Brar is identified through a medication adherence outreach initiative based on pharmacy claims data from [employer] (insurer) for Non-insulin DM medication(s) and Statin [...] remaining Debra Greer documented in this encounter [facility] 05-20-2023 Note Patient Outreach (ELISE RUSSELL) TERRANCE BRAR ([id number]) 1965 F Date Time Provider Department 05/20/23 DWAYNE LOPEZ During your visit today, we recorded the following information about you: Doc Greerley 05/20/2023 2:17 PM Signed Susital Brar is identified through a medication adherence outreach initiative based on pharmacy claims data from [employer] (insurer) for Non-insulin DM medication(s) and Statin [...] Date Reviewed: 04/23/2023 Reviewed by: Vernon Degroot APRN.IRON MINER - Fully Assessed Reason for Visit: Allied [...] blood sugar THREE TIMES DAILY - Insulin Hollis, Disposable, (BD ULTRA-FINE BEN PEN NEEDLE) 32 [...] [E04.1] 12/07/2008 Routine General Medical Examination at [facility]*12/10/2008 06/03/2015 Benign neoplasm of colon [D12.6] 05/15/2014 [...] right hand [M65.311] more content not included)... [facility] 05-04-2023 Note HNO ID: [id number] Author: Ariadna Kyle Service: ? Author Type: ? Type: Progress Notes Filed: 05/04/2023 2:15 PM Note Text: Terrance Brar is identified through a medication adherence outreach initiative based on pharmacy claims data from [employer] (insurer) for Non-insulin DM medication(s) and Statin [...] status) -Tried calling, no answer Ariadna Kyle [facility] 05-04-2023 History of Present illness Narrative Terrance Brar is identified through a medication adherence outreach initiative based on pharmacy claims data from [employer] (insurer) for Non-insulin DM medication(s) and Statin [...] answer Ariadna Kyle documented in this encounter [facility] 05-04-2023 Note Patient Outreach ( POHE) TERRANCE BRAR ([id number]) 1965 F Date Time Provider Department 05/04/23 DWAYNE LOPEZ During your visit today, we recorded the following information about you: Ariadna Kyle 05/04/2023 2:15 PM Signed Terrance Brar is identified through a medication adherence outreach initiative based on pharmacy claims data from [employer] (insurer) for Non-insulin DM medication(s) and Statin [...] Date Reviewed: 04/23/2023 Reviewed by: Vernon Degroot APRN.IRON MINER - Fully Assessed Prescriptions as of 05/04/2023 [...] blood sugar THREE TIMES DAILY - Insulin Hollis, Disposable, (BD ULTRA-FINE BEN PEN NEEDLE) 32 [...] [E04.1] 12/07/2008 Routine General Medical Examination at [facility]*12/10/2008 06/03/2015 Benign neoplasm of colon [D12.6] 05/15/2014 [...] little finger [M65.35 (more content not included)... [facility] 04-23-2023 Note HNO ID: [id number] Author: Vernon Degroot APRN.IRON MINER Service: ? Author Type: Nurse Practitioner Type: [...] test blood sugar THREE TIMES DAILY Insulin Hollis, Disposable, (BD ULTRA-FINE BEN PEN NEEDLE) 32 [...] CHF, DM eye (more content not included)... [facility] 04-23-2023 History of Present illness Narrative [...] 2 diabetes mellitus with neurological manifestations ([facility]) 02/27/2016 PAST SURGICAL HISTORY Procedure Laterality Date [...] test blood sugar THREE TIMES DAILY Insulin Hollis, Disposable, (BD ULTRA-FINE BEN PEN NEEDLE) 32 [...] and atraumatic. Nose: Nose normal. Mouth/Throat: Lips: Valera. Mouth: Mucous membranes are moist. Pharynx: Uvula [...] Vernon Degroot APRN.DEYANIRA documented in this encounter [facility] 04-08-2023 Note HNO ID: [id number] Author: Shital Menezes Service: ? Author Type: [...] Care Gap or Scheduling/Wellness visits Payer: Payor: [employer] / Plan: [employer] HMO / Product Type: HMO / Care [...] Shital Menezes April 08, 2023 1:51 PM [facility] 04-08-2023 Note Patient Outreach (AC CC) TERRANCE BRAR ([id number]) 1965 F Date Time Provider Department 04/08/23 PCP ([facility] During your visit today, we recorded the [...] Gap or Scheduling/Wellness visits Payer: Payor: VINH Bulb KENNEDY HANKS [employer] / Plan: [employer] HMO / Product Type: HMO / Care [...] blood sugar THREE TIMES DAILY - Insulin Hollis, Disposable, (BD ULTRA-FINE BEN PEN NEEDLE) 32 [...] [E04.1] 12/07/2008 Routine General Medical Examination at [facility]*12/10/2008 06/03/2015 Benign neoplasm of colon [D12.6] 05/15/2014 [...] Quervain's tenosynovitis [M65.4] (more content not included)... [facility] 04-08-2023 History of Present illness Narrative POPULATION HEALTH NAVIGATION OUTREACH Action/FYI Pt scheduled Patient Identified by Name and : YES, via phone Outreach Outcome/Action Spoke to patient / parent / legal guardian: Patient scheduled Did you use a PCP flex slot to schedule this appointment? No Reason for Outreach Care Gap or Scheduling/Wellness visits Payer: Payor: [employer] / Plan: [employer] HMO / Product Type: HMO / Care [...] 2023 1:51 PM documented in this encounter [facility] 04-07-2023 Note HNO ID: [id number] Author: Dwayne Lopez MD Service: ? Author Type: Physician Type: Progress Notes Filed: 04/12/2023 8:45 AM Note Text: Chief Complaint Patient presents with: SNF d/c follow up HPI Terrance Brar is a 57 year old female who presents here today for Above Complaints.. Patient had been a resident of [facility] since 03/2022 with discharge on 03/25. Admitted [...] for handicap ced. Patient also evaluated at [facility] ED on 03/28 for constipation for [...] ovaries remain VAG (more content not included)... [facility] 04-07-2023 Miscellaneous Notes Patient here for appointment. Patient scheduled for SNF discharge follow up today at 1320. Phone call to patient to remind her to bring all discharge information to appointment today. LM to call office. Mariama Sandoval MA documented in this encounter [facility] 04-07-2023 History of Present illness Narrative Chief Complaint Patient presents with: SNF d/c follow up HPI Ashleylindaneil Brar is a 57 year old female who presents here today for Above Complaints.. Patient had been a resident of [facility] since 03/2022 with discharge on 03/25. Admitted [...] for handicap placard. Patient also evaluated at [facility] ED on 03/28 for constipation for [...] test blood sugar THREE TIMES DAILY Insulin Hollis, Disposable, (BD ULTRA-FINE BEN PEN NEEDLE) 32 [...] which included preparing to see the patient, [id number] patient care, completing clinical documentation, obtaining and/or reviewing separately obtained history, performing a medically appropriate examination, counseling and educating the patient/family/caregiver, and ordering medications, tests, or procedures. Dwayne Lopez MD documented in this encounter [facility] 03-31-2023 Note Patient Outreach (IN TMMN) TERRANCE BRAR ([id number]) 1965 F Date Time Provider Department 03/31/23 [...] for screening mammogram for breast cancer [Z12.31] Order(s):[facility] SCREENING [[id number]] Order #: [id number] FUTURE Prescriptions as of 04/05/2023 - loperamide [...] blood sugar THREE TIMES DAILY - Insulin Hollis, Disposable, (BD ULTRA-FINE BEN PEN NEEDLE) 32 [...] [E04.1] 12/07/2008 Routine General Medical Examination at [facility]*12/10/2008 06/03/2015 Benign neoplasm of colon [D12.6] 05/15/2014 [...] Encounter Status:Closed by VAN, PRODUSER on 04/05/23 [facility] 03-24-2023 Note HNO ID: [id number] Author: Dwayne Lopez MD Service: ? Author Type: Physician Type: Progress Notes Filed: 03/24/2023 11:44 AM Note Text: Chief Complaint Patient presents with: Establish Care HPI Terrance Brar is a 57 year old female who presents here today for Above Complaints. Accompanied today by her Shan. Patient has been a resident of [facility] since 03/2022 and is planning on being discharged tomorrow. States that she was admitted initially for weakness and inability to walk. This was attributed to her uncontrolled DM. Required 11 months of PT. I have not received any records from the skilled nursing as of yet. Patient has paperwork today [...] chewable tablet GABRIELA (more content not included)... [facility] 03-24-2023 History of Present illness Narrative Chief Complaint Patient presents with: Establish Care HPI Susital Brar is a 57 year old female who presents here today for Above Complaints. Accompanied today by her Shan. Patient has been a resident of [facility] since 03/2022 and is planning on being discharged tomorrow. States that she was admitted initially for weakness and inability to walk. This was attributed to her uncontrolled DM. Required 11 months of PT. I have not received any records from the skilled nursing as of yet. Patient has paperwork today [...] test blood sugar THREE TIMES DAILY Insulin Hollis, Disposable, (BD ULTRA-FINE BEN PEN NEEDLE) 32 [...] care visit. Will request discharge records from skilled nursing along with labs obtained 1-2 weeks ago. Dwayne Lopez MD documented in this encounter [facility] 03-16-2023 Note HNO ID: [id number] Author: Sharonda Sanchez Service: ? Author Type: ? Type: Progress Notes Filed: 03/16/2023 12:49 PM Note Text: Terrance Brar is identified through a medication adherence outreach initiative based on pharmacy claims data from [employer] (insurer) for Non-insulin DM medication(s) and Statin [...] Call patient and had to leave an [employer] [facility] 03-16-2023 Note Patient Outreach ( PO) TERRANCE BRAR ([id number]) 1965 F Date Time Provider Department 03/16/23 NO PCP PHPOHE During your visit today, we recorded the following information about you: Sharonda Sanchez 03/16/2023 12:49 PM Signed Terrance Brar is identified through a medication adherence outreach initiative based on pharmacy claims data from [employer] (insurer) for Non-insulin DM medication(s) and Statin [...] Call patient and had to leave an [employer] Allergies As of Date: 03/16/2023 Noted Allergy [...] blood sugar THREE TIMES DAILY - Insulin Hollis, Disposable, (BD ULTRA-FINE BEN PEN NEEDLE) 32 [...] [E04.1] 12/07/2008 Routine General Medical Examination at [facility]*12/10/2008 06/03/2015 Benign neoplasm of colon [D12.6] 05/15/2014 [...] Renal stone [N20.0] (more content not included)... [facility] 02-23-2023 Note HNO ID: [id number] Author: Sharonda Sanchez Service: ? Author Type: ? Type: Progress Notes Filed: 02/23/2023 2:54 PM Note Text: Terrance Brar is identified through a medication adherence outreach initiative based on pharmacy claims data from [employer] (insurer) for Non-insulin DM medication(s) and Statin [...] and per call to patient/caregiver [employer] [facility] History of Present illness Narrative Terrance Brar is identified through a medication adherence outreach initiative based on pharmacy claims data from [employer] (insurer) for Non-insulin DM medication(s) and Statin [...] and per call to patient/caregiver [employer] documented in this encounter [facility] 02-23-2023 Note Patient Outreach ( POHE) TERRANCE BRAR ([id number]) 1965 F Date Time Provider Department 02/23/23 NO PCP PHPOHE During your visit today, we recorded the following information about you: Sharonda Sanchez 02/23/2023 2:54 PM Signed Terrance Buenrostrones is identified through a medication adherence outreach initiative based on pharmacy claims data from [employer] (insurer) for Non-insulin DM medication(s) and Statin [...] and per call to patient/caregiver [employer] Allergies As of Date: 02/23/2023 Noted Allergy [...] blood sugar THREE TIMES DAILY - Insulin Hollis, Disposable, (BD ULTRA-FINE BEN PEN NEEDLE) 32 [...] [E04.1] 12/07/2008 Routine General Medical Examination at [facility]*12/10/2008 06/03/2015 Benign neoplasm of colon [D12.6] 05/15/2014 [...] [M65.351] 06/21/2017 Tri (more content not included)... [facility] 01-11-2023 Note HNO ID: [id number] Author: Aquilino Jha Service: ? Author Type: ? Type: Progress Notes Filed: 01/21/2023 9:43 AM Note Text: 01/11/23 attempt 3 - no answer [facility] 01-11-2023 History of Present illness Narrative 01/11/23 attempt 3 - no answer 01/04/23 attempt 2 - no answer LVM Pt chart reviewed as part of population health initiative focused on statin use in patients with diabetes (DM) or cardiovascular disease (CVD). Terrance Brar is identified through data from [employer] (insurer) as a potential candidate for statin [...] RPh PharmD BCACP documented in this encounter [facility] 01-04-2023 Note HNO ID: [id number] Author: Aquilino Jha Service: ? Author Type: ? Type: Progress Notes Filed: 01/21/2023 9:43 AM Note Text: 01/04/23 attempt 2 - no answer LVM [facility] 01-01-2023 Note HNO ID: [id number] Author: Aquilino Jha Service: ? Author Type: ? Type: Progress Notes Filed: 01/21/2023 9:43 AM Note Text: Pt chart reviewed as part of population health initiative focused on statin use in patients with diabetes (DM) or cardiovascular disease (CVD). Terrance Brar is identified through data from [employer] (insurer) as a potential candidate for statin [...] attempt 1 - no answer BERRY Jha [facility] 01-01-2023 Note HNO ID: [id number] Author: Gurjit Syed RPh Service: ? Author Type: Pharmacist Type: Progress Notes Filed: 01/21/2023 9:43 AM Note Text: Approving student documentation and outreach below. Gurjit Syed RPh PharmD [facility] 01-01-2023 Note Patient Outreach (PH POHE) TERRANCE BRAR ([id number]) 1965 F Date Time Provider Department 01/01/23 GURJIT SYED During your visit today, we recorded the following information about you: Gurjit Syed RPh 01/21/2023 9:43 AM Signed Approving student documentation and outreach below. Gurjit Syed [facility] PharmD BCAKHADIJAH Jha 01/21/2023 9:43 AM Signed Pt chart reviewed as part of population health initiative focused on statin use in patients with diabetes (DM) or cardiovascular disease (CVD). Terrance Brar is identified through data from [employer] (insurer) as a potential candidate for statin [...] 2 diabetes mellitus with neurological manifestations ([facility]) 02/27/2016 Cholesterol, Total (mg/dL) Date Value 12/28/2017 [...] subcutaneously w MEALS. (more content not included)... 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
E11.69 - Hyperlipidemia associated with type 2 diabetes mellitus ([facility]) - [id number] Last Billed 12/26/2019
E21.3 - Hyperparathyroidism ([facility]) - [id number] Last Billed 09/18/2019
patient also due for [...] HCC or suspected condition Payer: Payor: [employer] / Plan: [id number] HMO / Product Type: HMO / Care [...] 2022 12:55 PM documented in this encounter [facility] documented as of this encounter (statuses as of 04/03/2022) [facility] History of Past illness Narrative* [...] of this encounter (statuses as of 01/21/2023) [facility] of [facility] Narrative* [...] of this encounter (statuses as of 02/24/2023) [facility] of [facility] Narrative* [...] of this encounter (statuses as of 03/24/2023) [facility] of Past [facility] Narrative* Problem Noted Date Resolved Date Trigger thumb of left hand 07/23/201501/27 Carpal tunnel syndrome, left 05/27/201502/2017 Carpal tunnel syndrome, right 05/27/2015 Constipation 03/12/2015 06/03/2015 Anemia 03/12/2015 02/27/2016 Abdominal pain, right upper quadrant 06/05/2014 06/03/2015 Abdominal pain, epigastric 05/15/201406/03 Routine General Medical Exam ination at a [facility] 12/10/2008 06/03/2015 Overview: HCT [...] of this encounter (statuses as of 04/07/2023) [facility] of Past [facility] Narrative* [...] of this encounter (statuses as of 04/08/2023) [facility] Narrative* [...] of this encounter (statuses as of 04/12/2023) [facility] Narrative* [...] of this encounter (statuses as of 04/23/2023) [facility] Narrative* [...] of this encounter (statuses as of 05/05/2023) [facility] Narrative* [...] of this encounter (statuses as of 05/20/2023) [facility] Narrative* [...] of this encounter (statuses as of 05/24/2023) [facility] Narrative* [...] of this encounter (statuses as of 06/10/2023) [facility] Narrative* [...] of this encounter (statuses as of 06/30/2023) [facility] Narrative* [...] of this encounter (statuses as of 08/18/2023) [facility] Narrative* [...] of this encounter (statuses as of 08/19/2023) [facility] Narrative* [...] of this encounter (statuses as of 08/20/2023) [facility] Narrative* [...] of this encounter (statuses as of 09/20/2023) [facility] note* Diagnosis Globus sensation- Primary Gastrointestinal malfunction arising from mental factors Gastroesophageal reflux disease, unspecified whether esophagitis present [facility] Diagnosis Generalized weakness- Primary Other [...] type dependence, continuous [facility] Diagnosis Toothache- Primary Unspecified disorder of the teeth and supporting structures documented in this encounter [facility] Summary Purpose Family History No Family History Records FoundNo Family History Records FoundNo Family History Records FoundNo Family History Records FoundNo Family History Records FoundNo Family History Records Found Advance Directives No Advanced Directives Records FoundDocuments on File Type Date Recorded Patient Director Of Database Marketing Expl anation Advance Directive(s) 10/10/2020 10:19 AM [...] (HCC) Procedures CONSULT TO PODIATRY OFFICE/OUTPATIENT [facility] 60-74 MINUTES Dwayne Lopez MD [address] [place] [address] Referral ID Status Reason Start Date Expiration Date Visits Requested Visits Authorized [id number] Pending Review PCP Requested Referral 04/07/2023 04/06/2024 1 1 Specialty Diagnoses / Procedures Referred By Contac t Referred To Contact General Surgery Diagnoses Globus sensation Screening for colon cancer Procedures CONSULT TO GENERAL SURGERY OFFICE/OUTPATIENT [facility] 60-74 MINUTES Dwayne Lopez MD [address] [place] [address] Referral ID Status Reason Start Date Expiration Date Visits Requested Visits Authorized [id number] Pending Review PCP Requested Referral 04/07/2023 04/06/2024 1 1 Specialty Diagnoses / Procedures Referred By Contac t Referred To Contact Ophthalmology Diagnoses Diabetes mellitus type 2 with neurological manifestations (HCC) Change in vision Procedures CONSULT TO OPHTHALMOLOGY OFFICE/OUTPATIENT [facility] 60-74 MINUTES Dwayne Lopez MD [address] [place] [address] Referral ID Status Reason Start Date Expiration Date Visits Requested Visits Authorized [id number] Pending Review PCP Requested Referral 04/07/2023 04/06/2024 1 1 Additional Source Comments INFORMATION SOURCE (unrecogn ized section and content) DATE CREATED AUTHOR AUTHOR'S ORGANIZ ATION 04/14/2018 [facility] DATE CREATED AUTHOR AUTHOR'S ORGANIZ ATION 10/05/2018 [facility] DATE CREATED AUTHOR AUTHOR'S ORGANIZ ATION 10/19/[address] [facility] DATE CREATED AUTHOR AUTHOR'S ORGANIZ ATION 09/28/2020 [facility] ([place]) DATE CREATED AUTHOR AUTHOR'S ORGANIZ ATION 11/03/2023 [facility] Source Comments (unrecognize d section and content) In the event this informatio n is protected by the Federal Confidentiality of Alcohol and Drug Abuse Patient Records regulations: The Federal rules restrict any use of the information to criminally investigate or prosecute any alcohol or drug abuse patient.[facility] the event this information is protected by the Federal Confidentiality of Alcohol and Drug Abuse Patient Records regulations: The Federal rules restrict any use of the information to criminally investigate or prosecute any alcohol or drug abuse patient.[facility] the event this information is protected by the Federal Confidentiality of Alcohol and Drug Abuse Patient Records regulations: The Federal rules restrict any use of the information to criminally investigate or prosecute any alcohol or drug abuse patient.[facility] the event this information is protected by the Federal Confidentiality of Alcohol and Drug Abuse Patient Records regulations: The Federal rules restrict any use of the information to criminally investigate or prosecute any alcohol or drug abuse patient.[facility] the event this information is protected by the Federal Confidentiality of Alcohol and Drug Abuse Patient Records regulations: The Federal rules restrict any use of the information to criminally investigate or prosecute any alcohol or drug abuse patient.[facility] the event this information is protected by the Federal Confidentiality of Alcohol and Drug Abuse Patient Records regulations: The Federal rules restrict any use of the information to criminally investigate or prosecute any alcohol or drug abuse patient.[facility] the event this information is protected by the Federal Confidentiality of Alcohol and Drug Abuse Patient Records regulations: The Federal rules restrict any use of the information to criminally investigate or prosecute any alcohol or drug abuse patient.[facility] the event this information is protected by the Federal Confidentiality of Alcohol and Drug Abuse Patient Records regulations: The Federal rules restrict any use of the information to criminally investigate or prosecute any alcohol or drug abuse patient.[facility] the event this information is protected by the Federal Confidentiality of Alcohol and Drug Abuse Patient Records regulations: The Federal rules restrict any use of the information to criminally investigate or prosecute any alcohol or drug abuse patient.[facility] the event this information is protected by the Federal Confidentiality of Alcohol and Drug Abuse Patient Records regulations: The Federal rules restrict any use of the information to criminally investigate or prosecute any alcohol or drug abuse patient.[facility] the event this information is protected by the Federal Confidentiality of Alcohol and Drug Abuse Patient Records regulations: The Federal rules restrict any use of the information to criminally investigate or prosecute any alcohol or drug abuse patient.[facility] the event this information is protected by the Federal Confidentiality of Alcohol and Drug Abuse Patient Records regulations: The Federal rules restrict any use of the information to criminally investigate or prosecute any alcohol or drug abuse patient.[facility] the event this information is protected by the Federal Confidentiality of Alcohol and Drug Abuse Patient Records regulations: The Federal rules restrict any use of the information to criminally investigate or prosecute any alcohol or drug abuse patient.[facility] the event this information is protected by the Federal Confidentiality of Alcohol and Drug Abuse Patient Records regulations: The Federal rules restrict any use of the information to criminally investigate or prosecute any alcohol or drug abuse patient.[facility] Center[facility] the event this information is protected by the Federal Confidentiality of Alcohol and Drug Abuse Patient Records regulations: The Federal rules restrict any use of the information to criminally investigate or prosecute any alcohol or drug abuse patient.[facility] Center[facility] the event this information is protected by the Federal Confidentiality of Alcohol and Drug Abuse Patient Records regulations: The Federal rules restrict any use of the information to criminally investigate or prosecute any alcohol or drug abuse patient.[facility] Center[facility] the event this information is protected by the Federal Confidentiality of Alcohol and Drug Abuse Patient Records regulations: The Federal rules restrict any use of the information to criminally investigate or prosecute any alcohol or drug abuse patient.[facility] Reason for Visit (unrecogniz ed [...] Date Comments Population Health Navigation Outreach 08/18/2023 [employer] care gaps Reason Onset Date Comments Refill Request 08/18/2023 Reason Onset Date Comments Allied Health Visit 08/20/2023 Medication A dherence Outreach Reason Onset Date Comments Allied Health Visit 09/20/2023 Medication A dherence Outreach Care Teams (unrecognized sec tion and content) Central Office Worker Relationship Specialty Start Date End Date Dwayne Lopez MD [address], [place] [id number] PCP - General Family Medicine 03/24/23 Central Office Worker Relationship Specialty Start Date End Date Dwayne Lopez MD [address], [place] [id number] PCP - General Family Medicine 03/24/23 Central Office Worker Relationship Specialty Start Date End Date Dwayne Lopez MD [address] [facility] [place] [address] PCP - General Family Medicine 03/24/23 Central Office Worker Relationship Specialty Start Date End Date Dwayne Lopez MD [address] [place] [place] [address] PCP - General Family Medicine 03/24/23 Central Office Worker Relationship Specialty Start Date End Date Dwayne Lopez MD [address] [place] [place] [address] PCP - General Family Medicine 03/24/23 Central Office Worker Relationship Specialty Start Date End Date Dwayne Lopez MD [address] [place] [place] [address] PCP - General Family Medicine 03/24/23 Central Office Worker Relationship Specialty Start Date End Date Dwayne Lopez MD [address] [place] [place] [address] PCP - General Family Medicine 03/24/23 Central Office Worker Relationship Specialty Start Date End Date Dwayne Lopez MD [address] [place] [address] PCP - General Family Medicine 03/24/23 Central Office Worker Relationship Specialty Start Date End Date Dwayne Lopez MD [address] [place] [place] [address] PCP - General Family Medicine 03/24/23 Central Office Worker Relationship Specialty Start Date End Date Dwayne Lopez MD [address] [place] [address] PCP - General Family Medicine 03/24/23 Central Office Worker Relationship Specialty Start Date End Date Dwayne Lopez MD [address] [place] [address] PCP - General Family Medicine 03/24/23 FOR [...] BE BASED ON THE PRIMARY CLINICAL RECORDS. [employer] provides no warranty or guarantee of the accuracy or completeness of information in this document.
[2023-12-31 08:26] LABS: Absolute Lymphocyte Count 1.71 X10^3/uL (0.83-4.51); Absolute Neutrophil Count 5.7 X10^3/uL (2.0-7.7); Basophil# 0.03 X10^3/uL; Basophil% 0.4 % (0-1); Hematocrit 34.4 % (37-47); Hemoglobin 11.2 g/dL (12.0-15.0); Lymphocyte # 1.71 X10^3/ul (0.83-4.51); Lymphocyte % 21.9 % (19-41); Mean Corp Hgb Conc 32.6 g/dL (32-36); Mean Corpuscular Hgb 29.5 pg (27.0-32.0); Mean Corpuscular Volume 90.5 fL (81-99); Mean Platelet Vol. 9.9 fl (6.2-12.0); Monocyte# 0.29 X10^3/uL; Monocyte% 3.7 % (0-10); NRBC Flagged by Analyzer 0 % (0-5); Neutrophil % 73.1 % (47-70); Platelet Count 257 K/mm3 (150-450); RBC Distribution Width CV 13.1 % (11.6-14.6); RBC Distribution Width SD 43.3 fl (35.1-43.9); White Blood Count 7.8 K/mm3 (4.4-11.0)
[2023-12-31 08:55] LABS: Anion Gap 9 (5-15); BUN 27 mg/dL (7-18); BUN/Creat Ratio 19.6 RATIO (10-20); Calcium,Total 9.3 mg/dL (8.5-10.1); Chloride 101 mmol/L (98-107); Creatinine, Serum 1.38 mg/dL (0.55-1.02); EST Glomerular Filtration Rate 41 mL/min (>60); Est Glom Filt Rate - Afr Amer 50 mL/min (>60); Glucose 480 mg/dL (74-106); Potassium 4.9 mmol/L (3.5-5.1); Sodium Level 134 mmol/L (136-145)
== END ==
LOC: OLS.WHLEAS 05:00
PROVIDERS: PCP Family Medicine; Visit Provider Internal Medicine
DX: E11.22 Type 2 diabetes mellitus with diabetic chronic kidney disease (principal); N18.9 Chronic kidney disease, unspecified
CPT/HCPCS: 36415; 80048; 85025

== ENCOUNTER 2024-01-01 18:32 | Observation (INO) | payer MEDICARE, MEDICAID, SELFPAY ==
[2024-01-01] VITALS (8 sets, daily range): BP systolic 132–162; BP diastolic 56–80; PULSE 83–94; RESP 13–19; TEMP 36.4–36.6; O2SAT 96–99; BMI 33.1; BMI 32.3
--- NOTE | 2024-01-01 18:43 | EKG12_ITS ---
Test Reason : CP Blood Pressure : / mmHG Vent. Rate : 090 BPM Atrial Rate : 090 BPM P-R Int : 160 ms QRS Dur : 082 ms QT Int : 366 ms P-R-T Axes : 035 -30 016 degrees QTc Int : 447 ms Normal sinus rhythm Left axis deviation Inferior infarct (cited on or before 17-MAR-2017) Anterior infarct (cited on or before 12-DEC-2020) Abnormal ECG Confirmed by Harry Luciano ([id number]), tape editor JAMAAL CALLES ([id number]) on 01/04/2024 7:30:57 AM Referred By: ROSMERY Confirmed By:Harry Luciano
--- NOTE | 2024-01-01 18:46 | EDS_ITS ---
HPI History of Present Illness Chief Complaint: Chest Pain Informant: patient Onset/Context/Timing Onset: Hours Activity at onset: gradual Narrative Narrative: Patient present secondary to chest pain with radiation to her left arm. She states pain started about an hour and a half prior to arrival she describes it as sharp in nature. He is in the left side the chest, goes down her left arm, and into her left back. She was given aspirin and 1 nitro with EMS and states pain improved from a 10 to a 6. She also complains of swelling in her left foot that has been ongoing for the past several days. [facility] Medical History Carpal tunnel syndrome Chronic back pain CKD (chronic kidney disease) stage 3, GFR 30-59 ml/min Depression Diabetes Difficulty in walking, not elsewhere classified Elevated troponin Essential hypertension Fatigue Former smoker History of left heart catheterization (LHC) (~05/21/22) HTN (hypertension) Hyperlipidemia Hypokalemia Hypothyroidism Intervertebral disc disorder with radiculopathy of lumbar region Kidney stones Migraines Normochromic normocytic anemia Obesity (BMI 35.0-39.9 without comorbidity) Opiate abuse, continuous Orthostatic hypotension Parathyroid disease Stomach ulcer Thyroid disease Type II diabetes mellitus, uncontrolled Home Medications rizatriptan 10 mg tablet 10 mg PO PRN Migraine Symptoms 12/27/17 [History Last Taken 11/15/23] atorvastatin 40 mg tablet 40 mg PO QHS #30 tabs 05/21/22 [Rx Last Taken 11/15/23] metoprolol succinate 25 mg tablet,extended release 24 hr 25 mg PO DAILY #30 tabs 05/21/22 [Rx Last Taken 11/15/23] levothyroxine 175 mcg capsule 175 mcg PO DAILY 06/12/22 [History Last Taken 11/15/23] pantoprazole 40 mg tablet,delayed release 40 mg PO DAILY 06/12/22 [History Last Taken 11/15/23] ranolazine 500 mg tablet,extended release,12 hr 500 mg PO BID #60 tabs 06/12/22 [Rx Last Taken 11/15/23] midodrine 10 mg tablet 10 mg PO BID 09/09/22 [History Last Taken 11/15/23] mirtazapine 15 mg tablet 7.5 mg PO QHS 11/16/22 [History Last Taken 11/15/23] fenofibrate 50 mg capsule 50 mg PO QHS 01/29/23 [History Last Taken 11/15/23] lorazepam 0.5 mg tablet 0.5 mg PO Q12H anxeity 01/29/23 [History Last Taken 11/15/23] quetiapine 25 mg tablet 37.5 mg PO QHS 01/29/23 [History Last Taken 11/15/23] acetaminophen 325 mg tablet 650 mg (2 x 325 mg) PO Q6H PRN PRN Pain 1-10 Or Fever >100.7 #0 tabs 11/24/23 [Rx Last Taken Unknown] insulin glargine-yfgn 100 unit/mL (3 mL) subcutaneous pen 15 unit (0.15 mL) subcut BREAKFAST #0 mL 11/24/23 [Rx Last Taken Unknown] insulin glargine-yfgn 100 unit/mL (3 mL) subcutaneous pen 15 unit (0.15 mL) subcut QHS #0 mL 11/24/23 [Rx Last Taken Unknown] insulin lispro 100 unit/mL subcutaneous pen (Humalog KwikPen (U-100) Insulin) 5 unit (0.05 mL) subcut BREAKFAST #0 mL 11/24/23 [Rx Last Taken Unknown] insulin lispro 100 unit/mL subcutaneous pen (Humalog KwikPen (U-100) Insulin) 5 unit (0.05 mL) subcut DINNER #0 mL 11/24/23 [Rx Last Taken Unknown] insulin lispro 100 unit/mL subcutaneous pen (Humalog KwikPen (U-100) Insulin) 5 unit (0.05 mL) subcut LUNCH #0 mL 11/24/23 [Rx Last Taken Unknown] lorazepam 0.5 mg tablet 0.5 mg PO Q12H #10 tabs 11/24/23 [Rx Last Taken Unknown] melatonin 3 mg tablet 3 mg PO QHS PRN PRN Insomnia #0 tabs 11/24/23 [Rx Last Taken Unknown] menthol 0.44 %-zinc oxide 20.6 % topical ointment (Calmoseptine) 1 applic topical TID #0 grams 11/24/23 [Rx Last Taken Unknown] nystatin 100,000 unit/gram topical powder (Nyamyc) 1 applic topical BID #0 grams 11/24/23 [Rx Last Taken Unknown] potassium chloride 20 mEq tablet,extended release(part/cryst) 20 meq PO 1XD #0 tabs 11/24/23 [Rx Last Taken Unknown] Allergy/AdvReac Type Severity Reaction Status Date / Time celecoxib [From Celebrex] Allergy Itching Verified 06/10/23 14:56 ciprofloxacin [From Cipro] Allergy Swelling Verified 06/10/23 14:56 ciprofloxacin HCl Allergy Swelling Verified 06/10/23 14:56 [From Cipro] codeine Allergy Hives Verified 06/10/23 14:56 ibuprofen Allergy Hives Verified 06/10/23 14:56 naproxen Allergy Hives Verified 06/10/23 14:56 Penicillins Allergy Hives Verified 06/10/23 14:56 tramadol HCl [From Ultram] Allergy Hives Verified 06/10/23 14:56 ketorolac [From Toradol] AdvReac Swelling Verified 06/10/23 14:56 Family History Other CVA (cerebral vascular accident) Cancer Diabetes Myocardial infarction Surgical History H/O: hysterectomy History of cholecystectomy Hx of section S/P trigger finger release Social History household members: other details: currently living in a NH for therapy for chronic back pain housing: [facility] Smoking Status: Former smoker Tobacco: How many years used: 46 how long ago did patient quit smoking: She quit smoking in August or September of 2021. She started smoking at 14 alcohol intake: never substance use type: other details: has a hx of chronic opioid use ROS ROS ED Constitutional Constitutional ED: Denies chills or fever(s) Eyes Eyes: Denies change in vision or discharge from eye(s) ENT ENT ED: Denies discharge from eye(s), rhinorrhea or sore throat Cardiovascular Cardiovascular: Reports chest pain; Denies palpitations Respiratory/Chest Respiratory/Chest: Denies cough or dyspnea Gastrointestinal Gastrointestinal: Reports diarrhea; Denies abdominal pain, nausea or vomiting Genitourinary Genitourinary ED: Denies dysuria Musculoskeletal Musculoskeletal: Reports extremity pain; Denies back pain Integumentary Denies Abrasions or rash Neurologic Neurologic: Denies headache(s) or weakness Psychiatric Psychiatric: Denies anxiety or depression Allergic/Immunologic Allergic/Immunologic ED: Denies lip swelling or urticaria EXAM Physical Exam Const Vital Signs: 01/01/24 18:32 01/01/24 18:36 Temperature 97.9 F Temperature Source Oral Pulse Rate 94 Respiratory Rate 16 Respiratory Effort Non-Labored Blood Pressure 139/76 H Blood Pressure Mean 97 Pulse Ox 97 Oxygen Delivery Method Room Air Positive well nourished and well developed General Appearance ED: well developed HEENT Reports moist mucous membranes Eyes EOMs intact bilaterally Chest Wall inspection of chest normal and palpation of chest normal Resp normal respiratory effort and clear to auscultation bilaterally Cardio regular rate and regular rhythm GI soft to palpation and non-tender Extremity normal to inspection Extremity Narrative: Strong distal pulses to all extremities. 2+ edema to her left foot. Good range of motion. Neuro Neuro Narrative: Patient reports decree sensation to light touch in the bilateral lower extremities. Psych mental status grossly normal MDM MDM MDM Narrative Medical decision making narrative: Patient placed on color television console monitor. IV line initiated. EKG obtained to evaluate for cardiac arrhythmia/ischemia. Chest x-ray obtained to evaluate for acute lung pathology, cardiac size, or mediastinal abnormality. Labwork obtained to evaluate for leukocytosis, anemia, and electrolyte derangement. Discharge Plan Triage Chief Complaint: Chest Pain ED Provider: Raisa Mc Dx/Rx/DC Orders Prescriptions: No Action levothyroxine 175 mcg capsule 175 mcg PO DAILY pantoprazole 40 mg tablet,delayed release (DR/EC) 40 mg PO DAILY ranolazine 500 mg tablet extended release 12 hr 500 mg PO BID Qty: 60 11RF mirtazapine 15 mg tablet 7.5 mg PO QHS midodrine 10 mg tablet 10 mg PO BID rizatriptan 10 tablet 10 mg PO PRN Patient Comments: metoprolol succinate 25 mg Tablet Extended Release 24 Hr 25 mg PO DAILY Qty: 30 2RF atorvastatin 40 mg tablet 40 mg PO QHS Qty: 30 2RF quetiapine 25 mg tablet 37.5 mg PO QHS lorazepam 0.5 mg tablet 0.5 mg PO Q12H fenofibrate 50 mg Capsule 50 mg PO QHS acetaminophen 325 mg Tablet 650 mg PO Q6H PRN PRN (Reason: Pain 1-10 Or Fever >100.7) Qty: 0 0RF lorazepam 0.5 mg Tablet 0.5 mg PO Q12H Qty: 10 0RF insulin glargine-yfgn 100 unit/mL (3 mL) Insulin Pen 15 unit subcut QHS Qty: 0 0RF insulin glargine-yfgn 100 unit/mL (3 mL) Insulin Pen 15 unit subcut BREAKFAST Qty: 0 0RF melatonin 3 mg Tablet 3 mg PO QHS PRN PRN (Reason: Insomnia) Qty: 0 0RF potassium chloride 20 mEq Tablet,Er Particles/Crystals 20 meq PO 1XD Qty: 0 0RF nystatin [Nyamyc] 100,000 unit/gram Powder 1 applic topical BID Qty: 0 0RF Protocol: *Topical Application Instructions APPLICATION INSTRUCTIONS: under bilat breasts/groin insulin lispro [Humalog KwikPen Insulin] 100 unit/mL Insulin Pen 5 unit subcut BREAKFAST Qty: 0 0RF insulin lispro [Humalog KwikPen Insulin] 100 unit/mL Insulin Pen 5 unit subcut DINNER Qty: 0 0RF insulin lispro [Humalog KwikPen Insulin] 100 unit/mL Insulin Pen 5 unit subcut LUNCH Qty: 0 0RF menthol-zinc oxide [Calmoseptine] 0.44-20.6 % Ointment 1 applic topical TID Qty: 0 0RF Protocol: *Topical Application Instructions APPLICATION INSTRUCTIONS: bilat buttocks Primary Care Provider: Jarred Lopez Referrals: Jarred Lopez MD [Primary Care Provider] -
--- NOTE | 2024-01-01 18:46 | ED.VIS.CHEST ---
HPI History of Present Illness Chief Complaint: Chest Pain Informant: patient Onset/Context/Timing Onset: Hours Activity at onset: gradual Narrative Narrative: Patient present secondary to chest pain with radiation to her left arm. She states pain started about an hour and a half prior to arrival she describes it as sharp in nature. He is in the left side the chest, goes down her left arm, and into her left back. She was given aspirin and 1 nitro with EMS and states pain improved from a 10 to a 6. She also complains of swelling in her left foot that has been ongoing for the past several days. [facility] Medical History Carpal tunnel syndrome Chronic back pain CKD (chronic kidney disease) stage 3, GFR 30-59 ml/min Depression Diabetes Difficulty in walking, not elsewhere classified Elevated troponin Essential hypertension Fatigue Former smoker History of left heart catheterization (LHC) (~05/21/22) HTN (hypertension) Hyperlipidemia Hypokalemia Hypothyroidism Intervertebral disc disorder with radiculopathy of lumbar region Kidney stones Migraines Normochromic normocytic anemia Obesity (BMI 35.0-39.9 without comorbidity) Opiate abuse, continuous Orthostatic hypotension Parathyroid disease Stomach ulcer Thyroid disease Type II diabetes mellitus, uncontrolled Home Medications rizatriptan 10 mg tablet 10 mg PO PRN Migraine Symptoms 12/27/17 [History Last Taken 01/01/24] atorvastatin 40 mg tablet 40 mg PO QHS #30 tabs 05/21/22 [Rx Last Taken 12/31/23] metoprolol succinate 25 mg tablet,extended release 24 hr 25 mg PO DAILY #30 tabs 05/21/22 [Rx Last Taken 01/01/24] levothyroxine 175 mcg capsule 175 mcg PO DAILY 06/12/22 [History Last Taken 01/01/24] pantoprazole 40 mg tablet,delayed release 40 mg PO DAILY 06/12/22 [History Last Taken 01/01/24] ranolazine 500 mg tablet,extended release,12 hr 500 mg PO BID #60 tabs 06/12/22 [Rx Last Taken 01/01/24] midodrine 10 mg tablet 10 mg PO BID 09/09/22 [History Last Taken 01/01/24] fenofibrate 50 mg capsule 50 mg PO QHS 01/29/23 [History Last Taken 12/31/23] lorazepam 0.5 mg tablet 0.5 mg PO Q12H anxeity 01/29/23 [History Last Taken 12/31/23] quetiapine 25 mg tablet 37.5 mg PO QHS 01/29/23 [History Last Taken 11/15/23] acetaminophen 325 mg tablet 650 mg (2 x 325 mg) PO Q6H PRN PRN Pain 1-10 Or Fever >100.7 #0 tabs 11/24/23 [Rx Last Taken Unknown] insulin glargine-yfgn 100 unit/mL (3 mL) subcutaneous pen 15 unit (0.15 mL) subcut BREAKFAST #0 mL 11/24/23 [Rx Last Taken 01/01/24] insulin glargine-yfgn 100 unit/mL (3 mL) subcutaneous pen 15 unit (0.15 mL) subcut QHS #0 mL 11/24/23 [Rx Last Taken 12/31/23] insulin lispro 100 unit/mL subcutaneous pen (Humalog KwikPen (U-100) Insulin) 5 unit (0.05 mL) subcut BREAKFAST #0 mL 11/24/23 [Rx Last Taken 01/01/24] insulin lispro 100 unit/mL subcutaneous pen (Humalog KwikPen (U-100) Insulin) 5 unit (0.05 mL) subcut DINNER #0 mL 11/24/23 [Rx Last Taken 12/31/23] insulin lispro 100 unit/mL subcutaneous pen (Humalog KwikPen (U-100) Insulin) 5 unit (0.05 mL) subcut LUNCH #0 mL 11/24/23 [Rx Last Taken 01/01/24] melatonin 3 mg tablet 3 mg PO QHS PRN PRN Insomnia #0 tabs 11/24/23 [Rx Last Taken 12/31/23] potassium chloride 20 mEq tablet,extended release(part/cryst) 20 meq PO 1XD #0 tabs 11/24/23 [Rx Last Taken 01/01/24] Allergy/AdvReac Type Severity Reaction Status Date / Time celecoxib [From Celebrex] Allergy Itching Verified 06/10/23 14:56 ciprofloxacin [From Cipro] Allergy Swelling Verified 06/10/23 14:56 ciprofloxacin HCl Allergy Swelling Verified 06/10/23 14:56 [From Cipro] codeine Allergy Hives Verified 06/10/23 14:56 ibuprofen Allergy Hives Verified 06/10/23 14:56 naproxen Allergy Hives Verified 06/10/23 14:56 Penicillins Allergy Hives Verified 06/10/23 14:56 tramadol HCl [From Ultram] Allergy Hives Verified 06/10/23 14:56 ketorolac [From Toradol] AdvReac Swelling Verified 06/10/23 14:56 Family History Other CVA (cerebral vascular accident) Cancer Diabetes Myocardial infarction Surgical History H/O: hysterectomy History of cholecystectomy Hx of section S/P trigger finger release Social History household members: other details: currently living in a NH for therapy for chronic back pain housing: senior living Smoking Status: Former smoker Tobacco: How many years used: 46 how long ago did patient quit smoking: She quit smoking in August or September of 2021. She started smoking at 14 alcohol intake: never substance use type: other details: has a hx of chronic opioid use ROS ROS ED Constitutional Constitutional ED: Denies chills or fever(s) Eyes Eyes: Denies change in vision or discharge from eye(s) ENT ENT ED: Denies discharge from eye(s), rhinorrhea or sore throat Cardiovascular Cardiovascular: Reports chest pain; Denies palpitations Respiratory/Chest Respiratory/Chest: Denies cough or dyspnea Gastrointestinal Gastrointestinal: Reports diarrhea; Denies abdominal pain, nausea or vomiting Genitourinary Genitourinary ED: Denies dysuria Musculoskeletal Musculoskeletal: Reports extremity pain; Denies back pain Integumentary Denies Abrasions or rash Neurologic Neurologic: Denies headache(s) or weakness Psychiatric Psychiatric: Denies anxiety or depression Allergic/Immunologic Allergic/Immunologic ED: Denies lip swelling or urticaria EXAM Physical Exam Const Vital Signs: 01/01/24 18:32 01/01/24 18:36 01/01/24 18:43 Temperature 97.9 F Temperature Source Oral Pulse Rate 94 Respiratory Rate 16 Respiratory Effort Non-Labored Blood Pressure 139/76 H Blood Pressure Mean 97 Pulse Ox 97 97 Oxygen Delivery Method Room Air Room Air 01/01/24 19:32 01/01/24 20:00 01/01/24 21:00 Temperature Temperature Source Pulse Rate 85 87 84 Respiratory Rate 18 19 H 16 Respiratory Effort Blood Pressure 145/61 H 137/56 H 162/80 H Blood Pressure Mean 89 83 107 Pulse Ox 97 96 99 Oxygen Delivery Method Room Air Room Air Room Air Positive well nourished and well developed General Appearance ED: well developed HEENT Reports moist mucous membranes Eyes EOMs intact bilaterally Chest Wall inspection of chest normal and palpation of chest normal Resp normal respiratory effort and clear to auscultation bilaterally Cardio regular rate and regular rhythm GI soft to palpation and non-tender Extremity normal to inspection Extremity Narrative: Strong distal pulses to all extremities. 2+ edema to her left foot. Good range of motion. Neuro Neuro Narrative: Patient reports decree sensation to light touch in the bilateral lower extremities. Psych mental status grossly normal Heart Score History: Moderately Suspicious ECG: Normal Age: >45 - <65 years Risk Factors: >/= 3 Risk Factors or History of CAD Troponin: </= Normal Limit Score: 4 MDM MDM MDM Narrative Medical decision making narrative: Patient placed on monitor technician. IV line initiated. EKG obtained to evaluate for cardiac arrhythmia/ischemia. Chest x-ray obtained to evaluate for acute lung pathology, cardiac size, or mediastinal abnormality. Labwork obtained to evaluate for leukocytosis, anemia, and electrolyte derangement. Lab Data Attestation: I reviewed the patient's lab results. Labs: Laboratory Results - last 24 hr 01/01/24 01/01/24 18:43 21:03 WBC 10.0 RBC 3.91 L Hgb 11.2 L Hct 35.0 L MCV 89.5 MCH 28.6 MCHC 32.0 RDW Std Deviation 43.3 RDW Coeff of Anisa 13.3 Plt Count 309 MPV 9.4 Immature Gran % (Auto) 0.900 Neut % (Auto) 66.7 Lymph % (Auto) 26.5 [place] % (Auto) 4.7 Eos % (Auto) 0.8 Baso % (Auto) 0.4 Absolute Neuts (auto) 6.7 Absolute Lymphs (auto) 2.66 Nucleated RBC % 0 D-Dimer Quant (PE/DVT) 1.83 H* Sodium 134 L Potassium 4.7 Chloride 102 Carbon Dioxide 27.0 Anion Gap 5 BUN 28 H Creatinine 1.38 H Estim Creat Clear Calc 39.76 Est GFR (MDRD) Af Amer 50 L Est GFR (MDRD) Non-Af 41 L BUN/Creatinine Ratio 20.3 H Glucose 405 H Calcium 9.1 Troponin I High Sens 15 17 Radiography Chest X-Ray - ED: 1 View, Read by ED Physician, Normal, Heart, Lungs and Mediastinum Diagnostic Testing: Clinical Impression(s) from Imaging Studies Chest CTA 01/01/24 19:21 IMPRESSION: Positive for bilateral segmental pulmonary emboli. No right heart strain. Electronically Signed: Anam Zimmer MD at 22:04 EST , EKG Initial EKG: Attestation: I personally reviewed and interpreted this EKG as follows: Interpretation: Sinus Rhythm (Sinus at 90 with no acute ischemia.) Treatment and Re-Evaluation :: Patient was treated with morphine and Zofran here for pain. CBC was normal white count at 10.0 with a hemoglobin 11.2. Chemistry studies reveal a BUN of 28 and creatinine 1.38. This is consistent with her baseline. D-dimer is elevated at 1.83. Troponin values are obtained and are 15 and 17 on 2-hour repeat. Portable chest x-ray per my interpretation reveals no evidence of acute abnormality. EKG is sinus rhythm with no evidence of ischemia. Given the patient's elevated D-dimer she was sent for CTA of the chest. Per my interpretation patient had evidence of bilateral PEs and she was given a dose of Lovenox. I did later receive a phone call from radiologist. They do confirm bilateral pulmonary emboli with no evidence of right heart strain. I will speak with hospitalist regarding observation. Discharge Plan Triage Chief Complaint: Chest Pain ED Provider: Raisa Mc Dx/Rx/DC Orders Clinical Impression: Pulmonary emboli Prescriptions: No Action levothyroxine 175 mcg capsule 175 mcg PO DAILY pantoprazole 40 mg tablet,delayed release (DR/EC) 40 mg PO DAILY ranolazine 500 mg tablet extended release 12 hr 500 mg PO BID Qty: 60 11RF midodrine 10 mg tablet 10 mg PO BID rizatriptan 10 tablet 10 mg PO PRN Patient Comments: metoprolol succinate 25 mg Tablet Extended Release 24 Hr 25 mg PO DAILY Qty: 30 2RF atorvastatin 40 mg tablet 40 mg PO QHS Qty: 30 2RF quetiapine 25 mg tablet 37.5 mg PO QHS lorazepam 0.5 mg tablet 0.5 mg PO Q12H fenofibrate 50 mg Capsule 50 mg PO QHS acetaminophen 325 mg Tablet 650 mg PO Q6H PRN PRN (Reason: Pain 1-10 Or Fever >100.7) Qty: 0 0RF insulin glargine-yfgn 100 unit/mL (3 mL) Insulin Pen 15 unit subcut QHS Qty: 0 0RF insulin glargine-yfgn 100 unit/mL (3 mL) Insulin Pen 15 unit subcut BREAKFAST Qty: 0 0RF melatonin 3 mg Tablet 3 mg PO QHS PRN PRN (Reason: Insomnia) Qty: 0 0RF potassium chloride 20 mEq Tablet,Er Particles/Crystals 20 meq PO 1XD Qty: 0 0RF insulin lispro [Humalog KwikPen Insulin] 100 unit/mL Insulin Pen 5 unit subcut BREAKFAST Qty: 0 0RF insulin lispro [Humalog KwikPen Insulin] 100 unit/mL Insulin Pen 5 unit subcut DINNER Qty: 0 0RF insulin lispro [Humalog KwikPen Insulin] 100 unit/mL Insulin Pen 5 unit subcut LUNCH Qty: 0 0RF Primary Care Provider: Jarred Lopez Referrals: Jarred Lopez MD [Primary Care Provider] - Disposition Disposition: Acute Care [facility]
[2024-01-01] MEDS: Morphine 4 MG/ML Syringe IV ×2 (18:53→21:32)
[2024-01-01] MEDS: Ondansetron 4 MG/2 ML Vial IV (18:53)
[2024-01-01] MEDS: 0.9% Normal Saline (1000mL) 1,000 ML 150 ML IV (18:54)
[2024-01-01 19:00] LABS: Absolute Lymphocyte Count 2.66 X10^3/uL (0.83-4.51); Absolute Neutrophil Count 6.7 X10^3/uL (2.0-7.7); Basophil# 0.04 X10^3/uL; Basophil% 0.4 % (0-1); Eosinophil# 0.08 X10^3/uL; Eosinophils% 0.8 % (0-5); Hemoglobin 11.2 g/dL (12.0-15.0); Lymphocyte # 2.66 X10^3/ul (0.83-4.51); Lymphocyte % 26.5 % (19-41); Mean Corpuscular Hgb 28.6 pg (27.0-32.0); Mean Corpuscular Volume 89.5 fL (81-99); Mean Platelet Vol. 9.4 fl (6.2-12.0); Monocyte# 0.47 X10^3/uL; Monocyte% 4.7 % (0-10); NRBC Flagged by Analyzer 0 % (0-5); Neutrophil # 6.68 X10^3/uL (2.7-7.7); Neutrophil % 66.7 % (47-70); Platelet Count 309 K/mm3 (150-450); RBC Distribution Width CV 13.3 % (11.6-14.6); RBC Distribution Width SD 43.3 fl (35.1-43.9); Red Blood Count 3.91 M/mm3 (4.2-5.4)
--- NOTE | 2024-01-01 19:07 | RAD_ITS ---
INDICATION: chest pain EXAMINATION/TECHNIQUE: X-RAY - XR Chest 1 View AP portable. 7:02 PM COMPARISON: 01/29/2023 FINDINGS: LINES/DEVICES: None. LUNGS: No consolidation. Reticular opacity at the left lung base likely scarring. No pneumothorax. MEDIASTINUM: Unremarkable. CARDIAC SILHOUETTE: Not enlarged. BONES AND SOFT TISSUES: No acute abnormalities. RAD/Chest 1 View (Portable) IMPRESSION: No evidence of active intrathoracic disease. Electronically Signed: Tonya Hager MD at 22:39 EST ,
[2024-01-01 19:15] LABS: D-Dimer Quantitative (DVT/PE) 1.83 FEU/ug/m (0.27-0.49)
[2024-01-01 19:18] LABS: Anion Gap 5 (5-15); BUN 28 mg/dL (7-18); BUN/Creat Ratio 20.3 RATIO (10-20); Calcium,Total 9.1 mg/dL (8.5-10.1); Chloride 102 mmol/L (98-107); Creatinine, Serum 1.38 mg/dL (0.55-1.02); EST Glomerular Filtration Rate 41 mL/min (>60); Est Glom Filt Rate - Afr Amer 50 mL/min (>60); Estimated Creatinine Clearance 39.76 ml/min; Glucose 405 mg/dL (74-106); Potassium 4.7 mmol/L (3.5-5.1); Sodium Level 134 mmol/L (136-145); Troponin-I HS (w/2H Reflex) 15 pg/mL (3.0-54.0)
--- NOTE | 2024-01-01 19:21 | CT_ITS ---
We are attempting to reach an attending provider to discuss findings. An addendum with communication details will be sent when the communication is complete. STUDY: CTA CHEST REASON FOR EXAM: Female, 58 years old. pulmonary embolism RADIATION DOSAGE (If Supplied By Facility): CTDIvol = ( 20.36 ) mGy, DLP = ( 481.58 ) mGycm TECHNIQUE: The examination was performed with the intravenous administration of IV 100mL Isovue-370. Post-processing of the angiographic images was performed, with multiplanar reformation and 3D reconstruction. Individualized dose optimization techniques were used for this CT. COMPARISON: Chest x-ray earlier today FINDINGS: Normal enhancement of the main pulmonary artery and right and left pulmonary arteries. Normal enhancement of the bilateral peripheral pulmonary arteries. Branching filling defect within the distal aspect of the left main pulmonary artery extending into the ascending and descending pulmonary arteries and segmental branches consistent with pulmonary embolism. Branching filling defect within the distal aspect of the descending right pulmonary artery with segmental filling defects in the right lower lobe and right middle lobe consistent with pulmonary emboli. Normal thoracic aorta and visualized great vessels. There is no demonstrated aortic dissection. Normal heart and pericardium. No dilatation the right ventricle to suggest right heart strain. Normal mediastinum. Normal hilar regions. Normal visualized trachea and bronchi. The lungs are well expanded. Normal pulmonary parenchyma. Normal pleura. Normal chest wall structures. Normal osseous structures. Normal visualized upper abdomen. CT/CTA Chest W/WO Contrast IMPRESSION: Positive for bilateral segmental pulmonary emboli. No right heart strain. Electronically Signed: Anam Zimmer MD at 22:04 EST ,
[2024-01-01 20:52] LABS: Reflex Troponin-HS? (from REC) Y
[2024-01-01] MEDS: Enoxaparin 80 MG/0.8 ML Syringe SC (21:32)
[2024-01-01 21:43] LABS: Troponin-I HS 17 pg/mL (3.0-54.0)
--- NOTE | 2024-01-01 22:25 | HP.PCM.HOS_ITS ---
HPI - General General Date of Admission: 01/01/24 Date of Service: 01/01/24 Chief Complaint: Chest pain. HPI Narrative The patient is a 58 y/o F w/ PMHx: Orthostatic hypotension, Obesity, Chronic anemia, CKD stage III unclear subtype, Anxiety and Depression, Chronic back pain, HTN, HLD, Former tobacco use, Hypothyroidism, GERD w/ Hx gastric ulcer, Diabetes mellitus type II, Chronic migraines, Chart reported history of prior opiate abuse who presents to the [facility] ED on 01/01/2024 with history of chest discomfort with radiation to the left upper extremity starting approximately an hour and a half prior to ED arrival noted to be sharp in nature also going into her back administered aspirin and 1 nitroglycerin per EMS with pain improvement from a 10 out of 10 to a 4 out of 10 with recent swelling in her left lower extremity which has been ongoing for several days prompting ED evaluation. Patient also notes that she was recently diagnosed with a UTI following onset of mild hematuria at the skilled facility and was started on antibiotics but cannot give the agent. She denied any dysuria, urinary frequency, urgency or retention with onset of the hematuria. She notes that in the last 2 days she had onset of loose stools. She denies the stools being foul-smelling. Workup in the ED included T97.6, heart rate 85, BP 145 or 61, respiratory rate 18, 97% on room air, CBC with WBC 10, hemoglobin 11.2, MCV 89.5, platelet 309 without marked shift, D-dimer 1.83, BMP with sodium 134, BUN/creatinine 28/1.38, glucose 405, troponin initial 15 with repeat delta 17, CTPA with bilateral segmental pulmonary emboli with no evidence of any cardiac heart strain, EKG with sinus rhythm with no acute evidence of ischemia. In the ED patient ministered Zofran 4 mg IV x 1, morphine 4 mg IV x 2, maintenance IV fluids in addition to Lovenox therapeutic 80 mg subcu regimen x 1. [facility] Medical History (Updated 01/01/24 @ 23:[address] Hansa Cast MD) Anxiety and depression Carpal tunnel syndrome Chronic back pain CKD (chronic kidney disease) stage 3, GFR 30-59 ml/min Diabetes mellitus, type 2 Essential hypertension Former smoker History of left heart catheterization (LHC) (~05/21/22) HTN (hypertension) Hyperlipidemia Hypothyroidism Intervertebral disc disorder with radiculopathy of lumbar region Kidney stones Migraines Normochromic normocytic anemia Obesity (BMI 35.0-39.9 without comorbidity) Opiate abuse, continuous Orthostatic hypotension Parathyroid disease Stomach ulcer Thyroid disease Home Medications rizatriptan 10 mg tablet 10 mg PO PRN Migraine Symptoms 12/27/17 [History Last Taken 01/01/24] atorvastatin 40 mg tablet 40 mg PO QHS #30 tabs 05/21/22 [Rx Last Taken 12/31/23] metoprolol succinate 25 mg tablet,extended release 24 hr 25 mg PO DAILY #30 tabs 05/21/22 [Rx Last Taken 01/01/24] levothyroxine 175 mcg capsule 175 mcg PO DAILY 06/12/22 [History Last Taken 01/01/24] pantoprazole 40 mg tablet,delayed release 40 mg PO DAILY 06/12/22 [History Last Taken 01/01/24] ranolazine 500 mg tablet,extended release,12 hr 500 mg PO BID #60 tabs 06/12/22 [Rx Last Taken 01/01/24] midodrine 10 mg tablet 10 mg PO BID 09/09/22 [History Last Taken 01/01/24] fenofibrate 50 mg capsule 50 mg PO QHS 01/29/23 [History Last Taken 12/31/23] lorazepam 0.5 mg tablet 0.5 mg PO Q12H anxeity 01/29/23 [History Last Taken 12/31/23] quetiapine 25 mg tablet 37.5 mg PO QHS 01/29/23 [History Last Taken 11/15/23] acetaminophen 325 mg tablet 650 mg (2 x 325 mg) PO Q6H PRN PRN Pain 1-10 Or Fever >100.7 #0 tabs 11/24/23 [Rx Last Taken Unknown] insulin glargine-yfgn 100 unit/mL (3 mL) subcutaneous pen 15 unit (0.15 mL) subcut BREAKFAST #0 mL 11/24/23 [Rx Last Taken 01/01/24] insulin glargine-yfgn 100 unit/mL (3 mL) subcutaneous pen 15 unit (0.15 mL) subcut QHS #0 mL 11/24/23 [Rx Last Taken 12/31/23] insulin lispro 100 unit/mL subcutaneous pen (Humalog KwikPen (U-100) Insulin) 5 unit (0.05 mL) subcut BREAKFAST #0 mL 11/24/23 [Rx Last Taken 01/01/24] insulin lispro 100 unit/mL subcutaneous pen (Humalog KwikPen (U-100) Insulin) 5 unit (0.05 mL) subcut DINNER #0 mL 11/24/23 [Rx Last Taken 12/31/23] insulin lispro 100 unit/mL subcutaneous pen (Humalog KwikPen (U-100) Insulin) 5 unit (0.05 mL) subcut LUNCH #0 mL 11/24/23 [Rx Last Taken 01/01/24] melatonin 3 mg tablet 3 mg PO QHS PRN PRN Insomnia #0 tabs 11/24/23 [Rx Last Taken 12/31/23] potassium chloride 20 mEq tablet,extended release(part/cryst) 20 meq PO 1XD #0 tabs 11/24/23 [Rx Last Taken 01/01/24] Allergy/AdvReac Type Severity Reaction Status Date / Time celecoxib [From Celebrex] Allergy Itching Verified 06/10/23 14:56 ciprofloxacin [From Cipro] Allergy Swelling Verified 06/10/23 14:56 ciprofloxacin HCl Allergy Swelling Verified 06/10/23 14:56 [From Cipro] codeine Allergy Hives Verified 06/10/23 14:56 ibuprofen Allergy Hives Verified 06/10/23 14:56 naproxen Allergy Hives Verified 06/10/23 14:56 Penicillins Allergy Hives Verified 06/10/23 14:56 tramadol HCl [From Ultram] Allergy Hives Verified 06/10/23 14:56 ketorolac [From Toradol] AdvReac Swelling Verified 06/10/23 14:56 Family History (Updated 01/01/24 @ 23:[address] Hansa Cast MD) Mother Cancer CVA (cerebral vascular accident) Hypertension Heart disease Myocardial infarction Diabetes Father Asthma Surgical History H/O: hysterectomy History of cholecystectomy Hx of section S/P trigger finger release Social History (Updated 01/01/24 @ 23:[address] Hansa Cast MD) household members: other details: currently living in a NH for therapy for chronic back pain housing: group home Smoking Status: Former smoker Tobacco: How many years used: 46 how long ago did patient quit smoking: Quit 09/2021, smoked 1 ppd since teen until quit. alcohol intake: never substance use type: other details: History of chronic opiate use. Denies abuse. ROS ROS Narrative Admission Review of Systems: CONSTITUTIONAL: No weight loss, fever, chills, + weakness or fatigue. HEENT: Eyes: No visual loss, blurred vision, double vision or yellow sclerae. Ears, Nose, Throat: No hearing loss, sneezing, congestion, runny nose or sore throat. SKIN: No rash or itching, lesions, wounds. CARDIOVASCULAR: + Pleuritic chest discomfort, chronic lower extremity edema with worsened left lower extremity edema recently. No palpitations, orthopnea, syncopal events. RESPIRATORY: + shortness of breath. No cough or sputum, wheezing, hemoptysis. GASTROINTESTINAL: + Recent loose stools. No anorexia, nausea, vomiting, abdominal pain, melena, BRBPR. GENITOURINARY: + Recent episode of hematuria with diagnosis UTI. No dysuria, frequency, urgency or retention. NEUROLOGICAL: + History of chronic migraines, history of orthostasis. Dizziness, syncope, paralysis, ataxia, numbness or tingling in the extremities, focal weakness, change in bowel or bladder control, seizure. MUSCULOSKELETAL: + muscle, back pain, joint pain or stiffness. HEMATOLOGIC: No anemia, bleeding or bruising. LYMPHATICS: No enlarged nodes. No history of splenectomy. PSYCHIATRIC: + History of anxiety and depression. ENDOCRINOLOGIC: No reports of sweating, cold or heat intolerance. No polyuria or polydipsia. ALLERGIES: + History of hives. Vital Signs Vital Signs Vital Signs: 01/01/24 18:32 01/01/24 18:36 01/01/24 18:43 Temperature 97.9 F Temperature Source Oral Pulse Rate 94 Respiratory Rate 16 Respiratory Effort Non-Labored Blood Pressure 139/76 H Blood Pressure Mean 97 Pulse Ox 97 97 Oxygen Delivery Method Room Air Room Air 01/01/24 19:32 01/01/24 20:00 01/01/24 21:00 Temperature Temperature Source Pulse Rate 85 87 84 Respiratory Rate 18 19 H 16 Respiratory Effort Blood Pressure 145/61 H 137/56 H 162/80 H Blood Pressure Mean 89 83 107 Pulse Ox 97 96 99 Oxygen Delivery Method Room Air Room Air Room Air 01/01/24 22:00 01/01/24 22:20 Temperature 97.6 F L Temperature Source Pulse Rate 83 84 Respiratory Rate 13 13 Respiratory Effort Blood Pressure 146/62 H 146/62 H Blood Pressure Mean 90 90 Pulse Ox 99 99 Oxygen Delivery Method Room Air Weight Weight: 169 lb 12.095 oz Body Mass Index (BMI) 33.1 Physical Exam Narrative Physical Examination: General: Awake, alert, oriented x 3 and cooperative, seated upright in the ED b ed, fatigued otherwise no acute distress, notes pleuritic discomfort still ongoing rates it currently 4 out of 10 in severity. Skin: Normal color, normal turgor, no icterus, no cyanosis except occasional staged ecchymoses, abrasion. HEENT: AT/NC, EOMI, PERRLA, MMM, no carotid bruits or JVD noted. Lungs: Mildly diminished, greater bases, mildly decreased effort secondary to pleuritic discomfort, no rales, ronchi or wheezing. Heart: Regular rate and rhythm; no gallop, rub audible. Abdomen: Soft, obese, NTTP, ND, distant normal BS, no appreciated HSM. Extremities: No cyanosis, no clubbing, left lower extremity with distal edema noted, some calf discomfort with palpation. Neurological: Patient awake, alert, oriented as noted, cognitive function intact; pupils equally reactive to light and accommodation, cranial nerves II- XII grossly normal, moving all 4 extremities, no focal deficits, strength moderately to severely globally decreased secondary to acute presentation complaints as well as significant chronic back issues. Psychiatric: Affect appears fatigued, mildly uncomfortable, no acute evidence of depressive or anxiety feelings but does have underlying history. Results Lab / Micro Data 01/01/24 18:43 01/01/24 18:43 Labs: Laboratory Results - last 24 hr 01/01/24 18:43: WBC 10.0, RBC 3.91 L, Hgb 11.2 L, Hct 35.0 L, MCV 89.5, MCH 28.6, MCHC 32.0, RDW Std Deviation 43.3, RDW Coeff of Anisa 13.3, Plt Count 309, MPV 9.4, Immature Gran % (Auto) 0.900, Neut % (Auto) 66.7, Lymph % (Auto) 26.5, [place] % (Auto) 4.7, Eos % (Auto) 0.8, Baso % (Auto) 0.4, Absolute Neuts (auto) 6.7, Absolute Lymphs (auto) 2.66, Nucleated RBC % 0, D-Dimer Quant (PE/DVT) 1.83 H*, Sodium 134 L, Potassium 4.7, Chloride 102, Carbon Dioxide 27.0, Anion Gap 5, BUN 28 H, Creatinine 1.38 H, Estim Creat Clear Calc 39.76, Est GFR (MDRD) Af Amer 50 L, Est GFR (MDRD) Non-Af 41 L, BUN/Creatinine Ratio 20.3 H, Glucose 405 H, Calcium 9.1, Troponin I High Sens 15 01/01/24 21:03: Troponin I High Sens 17 Imaging Radiology Impression Chest CTA 01/01/24 19:21 IMPRESSION: Positive for bilateral segmental pulmonary emboli. No right heart strain. Electronically Signed: Anam Zimmer MD at 22:04 EST , Assessment & Plan Assessment/Plan (1) Pulmonary emboli: PLAN: Plan The patient is a 58 y/o F w/ PMHx: Orthostatic hypotension, Obesity, Chronic anemia, CKD stage III unclear subtype, Anxiety and Depression, Chronic back pain, HTN, HLD, Former tobacco use, Hypothyroidism, GERD w/ Hx gastric ulcer, Diabetes mellitus type II, Chronic migraines, Chart reported history of prior opiate abuse who presents to the [facility] ED on 01/01/2024 with history of chest dis comfort with radiation to the left upper extremity starting approximately an hour and a half prior to ED arrival noted to be sharp in nature also going into her back administered aspirin and 1 nitroglycerin per EMS with pain improvement from a 10 out of 10 to a 6 out of 10 with recent swelling in her left lower extremity which has been ongoing for several days prompting ED evaluation. #1. Chest pain secondary to Bilateral Pulmonary Embolism likely secondary to recent LLE DVT secondary to severe debility, inactivity secondary to Chronic back pain: EKG without acute findings, CXR no acute process, D-dimer elevated, CTPA with bilateral segmental pulmonary emboli, trop x 2. Patient notes no recent travel but she has been in the SNF secondary to debility with chronic back pain using a wheelchair with severe debility, severe inactivity. Will admit to PCU, maintain on cardiac telemetry. Cardiac enzyme x 2 already normal range. Will transition in AM to eliquis regimen. Given no cardiac strain will defer ECHO. If pain improved would consider transitioning back to SNF 01/02/24. #2. Recent hematuria with diagnosis of acute urinary tract infection, unclear organism: Clarifying exactly what agent patient had been initiated on, will continue to be cautious and will also obtain stool culture to assure loose stools are primarily secondary to antibiotics only, if C. difficile is negative will initiate loperamide therapy as needed. #3. Chronic normocytic anemia: Admission hemoglobin 11.2, MCV 89.5, baseline hemoglobin primarily 11 range, stable, continue to trend. #4. Chronic Kidney Disease Stage III, unclear subtype: Admission BUN/Cr 28/1.38, baseline renal function primarily 1.3-1.7, more recently 12/31/2023 1.38, stable, repeat BMP in AM. #5. Orthostatic hypotension: Will continue patient home chronic midodrine regimen, positional changes cautiously, fall precautions as needed. #6. Hypertension: Continue home regimen including metoprolol, PRN hydralazine. #7. Hyperlipidemia: We will continue patient home statin and fenofibrate regimen. #8. Diabetes mellitus type II: Hold oral home regimen, continue home insulin regimen, ADA diet, accu checks w/ ISS. #9. Anxiety and Depression: Will cautiously continue patient low-dose lorazepam regimen as well as quetiapine. #10. Chart reported history hypothyroidism: Per current regimen listed not on regimen but clarifying, will obtain free T4 and TSH to be cautious. #11. GERD w/ Hx gastric ulcer: We will continue patient on PPI. #12. History chronic migraines: Patient uses triptan as needed, if onset of migraine certainly could initiate. #13. Former tobacco use: Encourage continued tobacco cessation. #14. Obesity: Weight loss and lifestyle changes encouraged. #15. DVT prophylaxis: Will continue as noted Eliquis therapy which will be initiated in a.m. as dose with therapeutic Lovenox x 1 in the ED. #16. CODE status: Patient HCPOA and living will are not in place but her would be her decision-maker if she notes if she was unable. Full Code status. Charges/Coding Visit Charges Inpatient E&M: 91379 Init Hosp L3
--- NOTE | 2024-01-01 23:19 | ED.RN ---
[facility] updated on pts admission.
[2024-01-02] VITALS (8 sets, daily range): BP systolic 99–145; BP diastolic 46–73; PULSE 81–89; RESP 14–16; TEMP 36.6–37.3; O2SAT 94–98; BMI 34.0
[2024-01-02] MEDS: LORazepam 0.5 MG Tablet PO ×3 (00:06→21:26)
[2024-01-02 00:30] LABS: Bedside Glucose 287 mg/dL (74-106)
[2024-01-02] MEDS: Morphine 2 MG/ML Syringe IV (03:43)
[2024-01-02] MEDS: 0.9% Saline Lock 10 ML Syringe IV ×2 (03:44→23:30)
[2024-01-02] MEDS: Levothyroxine 175 MCG Tablet PO (05:45)
[2024-01-02 06:52] LABS: Absolute Lymphocyte Count 2.24 X10^3/uL (0.83-4.51); Absolute Neutrophil Count 4.3 X10^3/uL (2.0-7.7); Basophil# 0.03 X10^3/uL; Basophil% 0.4 % (0-1); Eosinophil# 0.08 X10^3/uL; Eosinophils% 1.1 % (0-5); Hematocrit 33.9 % (37-47); Hemoglobin 10.9 g/dL (12.0-15.0); Lymphocyte # 2.24 X10^3/ul (0.83-4.51); Lymphocyte % 31.4 % (19-41); Mean Corp Hgb Conc 32.2 g/dL (32-36); Mean Corpuscular Volume 90.2 fL (81-99); Mean Platelet Vol. 9.7 fl (6.2-12.0); Monocyte# 0.37 X10^3/uL; Monocyte% 5.2 % (0-10); NRBC Flagged by Analyzer 0 % (0-5); Neutrophil % 60.2 % (47-70); Platelet Count 279 K/mm3 (150-450); RBC Distribution Width CV 13.4 % (11.6-14.6); Red Blood Count 3.76 M/mm3 (4.2-5.4); White Blood Count 7.1 K/mm3 (4.4-11.0)
[2024-01-02 08:26] LABS: ALB/GLOB Ratio 0.8 RATIO (0.9-2.4); AST(SGOT) 34 U/L (15-37); Alanine Aminotransfer ALT/SGPT 27 U/L (13-56); Alkaline Phosphatase 56 U/L (45-117); Anion Gap 6 (5-15); BUN 24 mg/dL (7-18); BUN/Creat Ratio 20.5 RATIO (10-20); Calcium,Total 8.7 mg/dL (8.5-10.1); Chloride 103 mmol/L (98-107); Creatinine, Serum 1.17 mg/dL (0.55-1.02); EST Glomerular Filtration Rate 50 mL/min (>60); Est Glom Filt Rate - Afr Amer 61 mL/min (>60); Estimated Creatinine Clearance 47.55 ml/min; Globulin 3.9 g/dL (2.2-4.2); Glucose 372 mg/dL (74-106); Potassium 4.4 mmol/L (3.5-5.1); Protein, Total 6.9 g/dL (6.4-8.2); Sodium Level 134 mmol/L (136-145); T4 Free Direct 1.82 ng/dL (0.76-1.46); Thyroid Stim Hormone (TSH) 0.36 uIU/mL (0.358-3.74)
[2024-01-02] MEDS: Insulin Glargine-YFGN 100 UNIT/ML Pen 15 UNIT SC ×2 (08:37→21:32)
[2024-01-02] MEDS: APIXABAN 5 MG TABLET 10 MG PO ×2 (08:50→21:26)
[2024-01-02] MEDS: Pantoprazole Sodium 40 MG Tablet PO (08:51)
[2024-01-02] MEDS: Metoprolol(XL)Succ 25 MG Tablet PO (08:51)
[2024-01-02] MEDS: Midodrine HCl 5 MG Tablet 10 MG PO ×2 (08:51→21:27)
[2024-01-02] MEDS: Ranolazine 500 MG Tablet PO ×2 (08:52→21:28)
[2024-01-02] MEDS: oxyCODONE 5 MG Tablet PO ×4 (08:53→23:29)
[2024-01-02 08:58] LABS: Bedside Glucose 344 mg/dL (74-106)
[2024-01-02] MEDS: Menthol/Lanolin/Calamine/Znox 113 GM Tube 1 APPLIC TOPICAL ×3 (09:00→17:38)
[2024-01-02] MEDS: Insulin Lispro 100 UNIT/ML INSULN.PEN SC ×7 (09:02→21:32)
--- NOTE | 2024-01-02 12:04 | PN.HOSP_ITS ---
Reason for Visit Reason for Visit: Diagnoses Other pulmonary embolism without acute cor pulmonale (01/01/24) Subjective Subjective Patient presented to the ED yesterday evening from SNF for new onset chest pain with radiation to the left arm. She also noted worsening swelling in her lower left leg for several days. She was found on CTA chest to have evidence of bilateral PEs. Notably had normal troponin values and low concern for right heart strain. She was given a dose of therapeutic Lovenox and admitted for further evaluation. Patient seen at bedside this morning. Patient was laying comfortably in bed, no acute distress. Patient is very weak appearing at baseline, was not moving around in bed much. States that she generally feels weak but this has been consistent for her over the last few months. She is currently breathing comfortably on room air and denies any shortness of breath at rest. She does report ongoing mild left lower extremity pain. She otherwise denies any acute pain or discomfort. No other acute concerns. Objective Data Objective Data Vital Signs: Vital Signs Temp Pulse Resp BP Pulse Ox O2 Del Method 98 F 85 16 145/73 H 97 Room Air 01/02/24 08:55 01/02/24 08:55 01/02/24 08:55 01/02/24 08:55 01/02/24 08:55 01/02/24 08:55 Oxygen Delivery Method Room Air Weight: 79 kg Body Mass Index (BMI) 34.0 Intake & Output: Intake and Output for Last 24 Hours 12/31/23 01/01/24 01/03/24 23:59 23:59 00:59 Intake Total 220 / 220 2200 / 2200 Output Total 0 / 0 3200 / 3200 Balance 220 / 220 -1000 / -1000 Lab / Micro Data 01/02/24 05:16 01/02/24 05:16 Labs: Laboratory Results - last 24 hr 01/01/24 18:43: WBC 10.0, RBC 3.91 L, Hgb 11.2 L, Hct 35.0 L, MCV 89.5, MCH 28.6, MCHC 32.0, RDW Std Deviation 43.3, RDW Coeff of Anisa 13.3, Plt Count 309, MPV 9.4, Immature Gran % (Auto) 0.900, Neut % (Auto) 66.7, Lymph % (Auto) 26.5, [place] % (Auto) 4.7, Eos % (Auto) 0.8, Baso % (Auto) 0.4, Absolute Neuts (auto) 6.7, Absolute Lymphs (auto) 2.66, Nucleated RBC % 0, D-Dimer Quant (PE/DVT) 1.83 H*, Sodium 134 L, Potassium 4.7, Chloride 102, Carbon Dioxide 27.0, Anion Gap 5, BUN 28 H, Creatinine 1.38 H, Estim Creat Clear Calc 39.76, Est GFR (MDRD) Af Amer 50 L, Est GFR (MDRD) Non-Af 41 L, BUN/Creatinine Ratio 20.3 H, Glucose 405 H, Calcium 9.1, Troponin I High Sens 15 01/01/24 21:03: Troponin I High Sens 17 01/02/24 00:08: POC Glucose 287 H 01/02/24 05:16: WBC 7.1, RBC 3.76 L, Hgb 10.9 L, Hct 33.9 L, MCV 90.2, MCH 29.0, MCHC 32.2, RDW Std Deviation 44.0 H, RDW Coeff of Anisa 13.4, Plt Count 279, MPV 9.7, Immature Gran % (Auto) 1.700 H, Neut % (Auto) 60.2, Lymph % (Auto) 31.4, [place] % (Auto) 5.2, Eos % (Auto) 1.1, Baso % (Auto) 0.4, Absolute Neuts (auto) 4.3, Absolute Lymphs (auto) 2.24, Nucleated RBC % 0, Sodium 134 L, Potassium 4.4, Chloride 103, Carbon Dioxide 25.0, Anion Gap 6, BUN 24 H, Creatinine 1.17 H , Estim Creat Clear Calc 47.55, Est GFR (MDRD) Af Amer 61, Est GFR (MDRD) Non-Af 50 L, BUN/Creatinine Ratio 20.5 H, Glucose 372 H, Calcium 8.7, Total Bilirubin 0.30, AST 34, ALT 27, Alkaline Phosphatase 56, Total Protein 6.9, Albumin 3.0 L, Globulin 3.9, Albumin/Globulin Ratio 0.8 L, TSH 0.36, Free T4 1.82 H 01/02/24 08:34: POC Glucose 344 H Radiography Diagnostic Testing: Radiology Impression Chest X-Ray 01/01/24 19:07 IMPRESSION: No evidence of active intrathoracic disease. Electronically Signed: Tonya Hager MD at 22:39 EST , Chest CTA 01/01/24 19:21 IMPRESSION: Positive for bilateral segmental pulmonary emboli. No right heart strain. Electronically Signed: Anam Zimmer MD at 22:04 EST , ADDENDUM: 01/01/24 2242 IMPRESSION: Positive for bilateral segmental pulmonary emboli. No right heart strain. N.B. : The above Results were Read Back by Anam Zimmer MD to Raisa Mc MD, and understanding confirmed on 01/01/2024 22:35:59 (ET). Electronically Signed: Anam Zimmer MD at 22:04 EST , Physical Exam Const alert and no apparent distress Constitutional Narrative: Middle-age female, obese, weak and chronically ill-appearing, otherwise laying comfortably in bed, conversing normally, no acute distress. General Appearance: cooperative and comfortable HEENT normocephalic, head/scalp atraumatic, hearing grossly normal bilaterally and nasal mucous membranes and turbinates normal Eyes PERRL, EOMs intact bilaterally and conjunctivae normal Neck full ROM Chest inspection of chest normal Resp normal respiratory effort, normal air movement, no use of accessory muscles and clear to auscultation bilaterally Resp Narrative: Breathing comfortably on room air. Good air movement throughout bilaterally, no wheezing or crackles noted. Cardio regular rate, regular rhythm, no murmurs and peripheral pulses 2+ throughout GI normal to inspection, nondistended, normoactive bowel sounds, soft to palpation, non-tender and non-distended Back/Spine normal ROM Extremity full ROM Extremity Narrative: Mild bilateral lower extremity swelling, appears similar in both legs. Both legs with mild tenderness to palpation. No overt erythema noted. Skin no rashes or lesions noted Neuro moves all extremities and no focal motor deficits Speech: speech normal Psych mental status grossly normal Assessment & Plan Assessment/Plan (1) Pulmonary emboli: PLAN: Plan Patient is a 58-year-old female who presented to [facility] ED on 01/01/2024 from SNF for chest pain with radiation down the left arm. 1. Acute bilateral pulmonary emboli, low risk ? CTA chest on admit showed bilateral pulmonary emboli with filling defects in the distal aspects of the left main pulmonary artery and in the descending right pulmonary artery. No right heart strain noted. Patient stable on room air with good oxygen saturations since admission. ? Given dose of therapeutic Lovenox in the ED, then started on Eliquis 10 mg twice daily for VTE dosing. ? Presume this is secondary to recent debility with inactivity as noted below. ? Venous duplex ultrasound and echo ordered. Pending those results and if patient remains stable, may be okay for discharge back to SNF tomorrow. Continue Eliquis. Continue cardiac monitoring and continuous pulse oximetry. 2. Severe debility and inactivity, chronic back pain ? Patient recently hospitalized at [facility] from 11/19-11/24. Was noted to have fairly severe deconditioning during that hospitalization that apparently was worsened by her chronic back pain. Was discharged to SNF at that time. Has remained at that SNF ([facility]) since then and suspect that she has had very limited activity while there. ? PT/OT/case management following. 3. Type 2 diabetes mellitus with hyperglycemia ? Home regimen of Lantus 15 units twice daily, Humalog 5 units with meals. Blood sugars around 400 on admit, no evidence of DKA. Resume home regimen with high-medium sliding scale insulin, adjust as needed. Chronic medical conditions: ? Obesity: BMI 34 on admit. Complicates hospital course, care and prognosis. ? CKD stage III: Creatinine 1.38 on admit, at baseline. Stable. ? Chronic normocytic anemia: Hemoglobin 11.2 on admit, at baseline. Stable. ? History of orthostatic hypotension: Continue home midodrine. ? Hypertension: Continue home Toprol. ? Hyperlipidemia: Continue home statin and fenofibrate. ? GERD: Continue home PPI. ? Hypothyroidism: Continue home Synthroid. ? Anxiety and depression: Continue home Seroquel at night, Ativan 0.5 mg twice daily. ? Former tobacco use: Encouraged continued cessation. DVT prophylaxis: Eliquis CODE STATUS: Full code, verified Expected disposition: Back to SNF, 1 to 2 days Total clinical time spent by myself addressing the patient's medical issues, reviewing all the data, and collaborating with patient's care team: 35 minutes.
[2024-01-02 12:17] LABS: Bedside Glucose 272 mg/dL (74-106)
--- NOTE | 2024-01-02 16:15 | VDLE_ITS ---
Reason For Study: Pulmonary Embolism RIGHT LEFT GSV is normal. GSV is normal. CFV is compressible, spontaneous, phasic, CFV is compressible, spontaneous, phasic, competent and demonstrates normal competent, and demonstrates normal augmentation. augmentation. FV is compressible, spontaneous, phasic, FV is compressible, spontaneous, phasic, competent and demonstrates normal competent and demonstrates normal augmentation. augmentation. POP V is compressible, spontaneous, phasic, POP V is compressible, spontaneous, and competent and demonstrates normal phasic. augmentation. T/P Trunk is compressible. T/P Trunk is compressible. Acute deep vein thrombosis is noted in the PTV is compressible. PTV. It is dilated and NONCOMPRESSIBLE. RT PerV is compressible. LT PerV is compressible. Procedure Acute superficial vein thrombosis is noted in This is a venous duplex using B-mode, color the SSV. It is dilated and NONCOMPRESSIBLE. flow and spectral Doppler. Exam performed portable in patient room. The exam was diagnostic. A preliminary report was called and/or faxed to [facility] [employer] Garay. VL/Venous Duplex US - Alcides Extrem Interpretation Summary Acute deep venous thrombosis left posterior tibial vein Superficial thrombophlebitis left small saphenous vein No evidence for acute deep venous thrombosis right lower extremity Patent and compressible bilateral great saphenous veins Ordering Physician: Chavez Alcala Performed By: Олег Vazquez RVT
--- NOTE | 2024-01-02 16:27 | ECHOCS_ITS ---
Reason For Study: Emboli Procedure This was a 2D Doppler, Color Flow transthoracic echocardiogram. The study was technically difficult. Contrast injection was performed. Exam performed portable in patient room. Left Ventricle Normal LV size. The estimated ejection fraction is 70 %. Normal diastology for age. No regional wall motion abnormalities noted. Right Ventricle Normal RV size. Normal systolic function. Atria Normal left atrium. Normal right atrium. No doppler evidence for ASD. Mitral Valve There is no mitral valve stenosis. No mitral valve insufficiency. Tricuspid Valve There is no tricuspid stenosis. Trivial tricuspid valve insufficiency. Pulmonary artery systolic pressure is 35 mmHg. Aortic Valve Trisinus/trileaflet aortic valve. There is no aortic stenosis. No aortic valve insufficiency. Pulmonic Valve There is no pulmonic valvular stenosis. No pulmonic valve insufficiency. Great Vessels Normal aortic root. Pericardium/Pleural No pericardial effusion. Medication Diluted definity 2ml given slow IV push to enhance endocardial definition. MMode/2D Measurements & Calculations LVIDd: 4.1 cm IVSd: 1.3 cm Ao root diam: 3.1 cm LVIDs: 2.5 cm LVPWd: 1.3 cm LA dimension: 4.2 cm RVDd: 3.1 cm FS: 39.0 % LAV(MOD-bp): 43.8 ml LVAd ap4: 29.9 cm2 SV(MOD-sp4): 79.0 ml LAV(MOD-bp) Indexed: 25.3 ml/m2 LVLd ap4: 7.3 cm LAV(MOD-sp2): 42.3 ml EDV(MOD-sp4): 97.9 ml LAV(MOD-sp4): 43.9 ml EDV(sp4-el): 103.3 ml LVAs ap4: 11.5 cm2 LVLs ap4: 5.9 cm ESV(MOD-sp4): 18.9 ml ESV(sp4-el): 19.1 ml EF(MOD-sp4): 80.6 % EF(sp4-el): 81.5 % SV(sp4-el): 84.3 ml LA A4 area: 16.9 cm2 RA A4 area: 10.9 cm2 TAPSE: 1.8 cm Time Measurements MV dec time: 0.26 sec Doppler Measurements & Calculations MV E max ignacio: 70.5 cm/sec Lat Peak E' Ignacio: 7.3 cm/sec Med Peak E' Ignacio: 5.8 cm/sec MV A max ignacio: 96.9 cm/sec E/E' lat: 9.7 E/E' med: 12.2 MV E/A: 0.73 MV V2 max: 108.1 cm/sec MV P1/2t max ignacio: 102.0 cm/sec Ao V2 max: 173.4 cm/sec MV max P.7 mmHg MV P1/2t: 96.4 msec Ao max P.0 mmHg MV V2 mean: 59.9 cm/sec Ao V2 mean: 108.6 cm/sec MV mean P.7 mmHg MV dec slope: 310.0 cm/sec2 Ao mean P.8 mmHg MV V2 VTI: 27.7 cm MVA(P1/2t): 2.3 cm2 Ao V2 VTI: 31.9 cm AV (velocity ratio): 1.1 LV V1 max: 160.5 cm/sec PA V2 max: 97.3 cm/sec TR max ignacio: 273.5 cm/sec LV V1 max P.3 mmHg PA V2 mean: 67.5 cm/sec TR max P.9 mmHg LV V1 mean P.8 mmHg LV V1 mean: 124.8 cm/sec LV V1 VTI: 34.2 cm ECHO/Echo Complete W/ Contrast Interpretation Summary The estimated ejection fraction is 70 %. Ordering Physician: Chavez Alcala Performed By: Ezequiel Dobson RCS
[2024-01-02 18:11] LABS: Bedside Glucose 249 mg/dL (74-106)
[2024-01-02] MEDS: Atorvastatin Calcium 40 MG Tablet PO (21:27)
[2024-01-02] MEDS: QUEtiapine 25 MG Tablet 37.5 MG PO (21:28)
[2024-01-02] MEDS: Fenofibrate 48 MG Tablet PO (21:28)
[2024-01-02 21:53] LABS: Bedside Glucose 277 mg/dL (74-106)
[2024-01-02] MEDS: proCHLORPERazine 10 MG/2 ML Vial 5 MG IV (23:29)
[2024-01-03] VITALS (13 sets, daily range): BP systolic 113–132; BP diastolic 50–64; PULSE 72–88; RESP 14–16; TEMP 36.3–37.1; O2SAT 89–98; BMI 32.7
[2024-01-03] MEDS: Levothyroxine 175 MCG Tablet PO (05:44)
[2024-01-03 06:44] LABS: Hematocrit 32.1 % (37-47); Hemoglobin 10.3 g/dL (12.0-15.0); Mean Corp Hgb Conc 32.1 g/dL (32-36); Mean Corpuscular Hgb 29.2 pg (27.0-32.0); Mean Corpuscular Volume 90.9 fL (81-99); Mean Platelet Vol. 9.4 fl (6.2-12.0); Platelet Count 291 K/mm3 (150-450); RBC Distribution Width CV 13.6 % (11.6-14.6); Red Blood Count 3.53 M/mm3 (4.2-5.4); White Blood Count 9.3 K/mm3 (4.4-11.0)
[2024-01-03 07:16] LABS: Anion Gap 8 (5-15); BUN 37 mg/dL (7-18); BUN/Creat Ratio 32.7 RATIO (10-20); Calcium,Total 8.5 mg/dL (8.5-10.1); Chloride 103 mmol/L (98-107); Creatinine, Serum 1.13 mg/dL (0.55-1.02); EST Glomerular Filtration Rate 52 mL/min (>60); Est Glom Filt Rate - Afr Amer 63 mL/min (>60); Estimated Creatinine Clearance 48.23 ml/min; Glucose 403 mg/dL (74-106); Potassium 4.5 mmol/L (3.5-5.1); Sodium Level 137 mmol/L (136-145)
[2024-01-03] MEDS: LORazepam 0.5 MG Tablet PO ×2 (08:16→23:18)
[2024-01-03] MEDS: Acetaminophen 325 MG Tablet 650 MG PO ×3 (08:16→22:26)
[2024-01-03] MEDS: oxyCODONE 5 MG Tablet PO ×3 (08:16→22:27)
[2024-01-03] MEDS: Ranolazine 500 MG Tablet PO ×2 (08:17→22:24)
[2024-01-03] MEDS: Metoprolol(XL)Succ 25 MG Tablet PO (08:17)
[2024-01-03] MEDS: Midodrine HCl 5 MG Tablet 10 MG PO ×2 (08:17→22:24)
[2024-01-03] MEDS: Pantoprazole Sodium 40 MG Tablet PO (08:17)
[2024-01-03] MEDS: APIXABAN 5 MG TABLET 10 MG PO ×2 (08:17→22:24)
[2024-01-03] MEDS: Insulin Glargine-YFGN 100 UNIT/ML Pen 15 UNIT SC (08:18)
[2024-01-03] MEDS: Insulin Lispro 100 UNIT/ML INSULN.PEN SC ×7 (08:18→22:29)
[2024-01-03] MEDS: Menthol/Lanolin/Calamine/Znox 113 GM Tube 1 APPLIC TOPICAL ×3 (08:20→18:27)
[2024-01-03 08:29] LABS: Bedside Glucose 311 mg/dL (74-106)
[2024-01-03 11:28] LABS: Bedside Glucose 333 mg/dL (74-106)
--- NOTE | 2024-01-03 11:43 | CASEMGMT ---
Met with patient to complete BOB form. BOB form explained to patient who voiced understanding and signed form. Original form placed in pt?s chart and copy provided to patient.? Rachel Bueno, Discharge Planning Asst
[2024-01-03] MEDS: Morphine 2 MG/ML Syringe IV ×2 (11:58→18:40)
--- NOTE | 2024-01-03 12:19 | CASEMGMT ---
GINNA met with patient. Introduced self and role at [facility]. Patient confirmed her plan is to return to [facility] at discharge. SW asked Rachel to send updates to [facility] and inquire if patient needs a pre-cert or not to return. Delores HOBBS
--- NOTE | 2024-01-03 12:43 | EKG12_ITS ---
Test Reason : Blood Pressure : / mmHG Vent. Rate : 081 BPM Atrial Rate : 081 BPM P-R Int : 168 ms QRS Dur : 086 ms QT Int : 382 ms P-R-T Axes : 020 -23 -02 degrees QTc Int : 443 ms Normal sinus rhythm Anterolateral infarct , age undetermined Abnormal ECG When compared with ECG of 01-JAN-2024 18:35, MANUAL COMPARISON REQUIRED, DATA IS UNCONFIRMED Confirmed by Harry Luciano ([id number]), newspaper editor JAMAAL CALLES ([id number]) on 01/07/2024 9:34:40 AM Referred By: MIAN Confirmed By:Harry Luciano
--- NOTE | 2024-01-03 14:17 | CASEMGMT ---
Discharge Planning Updates sent to [facility] via [facility]. Requested precert be submitted. Rachel Bueno, Discharge Planning Asst.
[2024-01-03] MEDS: Ondansetron 4 MG/2 ML Vial IV (15:10)
[2024-01-03 17:37] LABS: Bedside Glucose 356 mg/dL (74-106)
--- NOTE | 2024-01-03 19:01 | PCM.PN.HOSP ---
Reason for Visit Reason for Visit: Chest pain Subjective Subjective Ms. Brar is a 58-year-old white female who presented to the emergency department at [facility] from her [facility] facility for acute onset chest pain with radiation to left arm. She was also noted to have worsening swelling in her left lower extremity for several days. A CTA of her chest was performed and she was found to have bilateral PEs. Her troponin was normal and there was low concern for right heart strain. She was given therapeutic Lovenox and admitted for further workup. She did appear significantly weak on presentation. Echocardiogram was performed on 01/02/2024 and showed an EF of 70% no significant valvular abnormalities. She had mild pulmonary artery systolic hypertension with a pulm artery systolic pressure of 35 mmHg and a normal functioning RV. Due to the swelling a Doppler of her lower extremities was performed and acute DVT in the left posterior tibial vein was found as well as a small superficial thrombophlebitis in the left saphenous vein. Her right lower extremity was unremarkable for any clots. She was transition to therapeutic apixaban. She also was found to have severe debility with inactivity from chronic back pain and had a recent hospitalization at the end of October. We suspected that her immobility related to this was the etiology of her forming DVT/PE. She was trialed on room air and oxygen saturations were 89% show she was replaced on 2 L nasal cannula. Patient still having some intermittent left-sided chest pain that seems to be pleuritic in nature. Strongly encouraged incentive spirometry Objective Data Objective Data Vital Signs: Vital Signs Temp Pulse Resp BP Pulse Ox O2 Del Method O2 Flow Rate 98.4 F 78 16 126/51 H 94 Nasal Cannula 2 01/03/24 18:23 01/03/24 18:23 01/03/24 18:23 01/03/24 18:23 01/03/24 18:33 01/03/24 18:33 01/03/24 18:33 Oxygen Flow Rate (L/min) 2 Oxygen Delivery Method Nasal Cannula Weight: 76 kg Body Mass Index (BMI) 32.7 Intake & Output: Intake and Output for Last 24 Hours 01/01/24 01/02/24 01/03/24 22:59 23:59 23:59 Intake Total 540 / 540 Output Total 900 / 900 Balance -360 / -360 Lab / Micro Data 01/03/24 06:05 01/03/24 06:05 Labs: Laboratory Results - last 24 hr 01/02/24 21:31: POC Glucose 277 H 01/03/24 06:05: WBC 9.3, RBC 3.53 L, Hgb 10.3 L, Hct 32.1 L, MCV 90.9, MCH 29.2, MCHC 32.1, RDW Std Deviation 45.0 H, RDW Coeff of Anisa 13.6, Plt Count 291, MPV 9.4, Sodium 137, Potassium 4.5, Chloride 103, Carbon Dioxide 26.0, Anion Gap 8, BUN 37 H, Creatinine 1.13 H, Estim Creat Clear Calc 48.23, Est GFR (MDRD) Af Amer 63, Est GFR (MDRD) Non-Af 52 L, BUN/Creatinine Ratio 32.7 H, Glucose 403 H, Calcium 8.5 01/03/24 08:12: POC Glucose 311 H 01/03/24 11:03: POC Glucose 333 H 01/03/24 17:19: POC Glucose 356 H Radiography Diagnostic Testing: Radiology Impression Venous Doppler Study 01/02/24 16:15 Interpretation Summary Acute deep venous thrombosis left posterior tibial vein Superficial thrombophlebitis left small saphenous vein No evidence for acute deep venous thrombosis right lower extremity Patent and compressible bilateral great saphenous veins Ordering Physician: Chavez Alcala Performed By: Олег Vazquez RVT Echocardiogram 01/02/24 16:27 Interpretation Summary The estimated ejection fraction is 70 %. Ordering Physician: Chavez Alcala Performed By: Ezequiel Dobson RCS Physical Exam Const alert, oriented x3, no apparent distress and well nourished; Negative for healthy appearing Constitutional Narrative: Middle-age, white female, sitting up in bed talking on the phone, appears comfortable and nontoxic, appears chronically ill HEENT head/scalp atraumatic and moist oral mucous membranes HEENT Narrative: Mallampati 2, no thrush Head and Scalp: normocephalic Resp normal respiratory effort, no retractions, no use of accessory muscles and clear to auscultation bilaterally Resp Narrative: Diminished at bases bilaterally but no adventitious sounds Auscultation: Negative for rales, rhonchi or wheezes Cardio regular rate, regular rhythm, S1 normal heart sound, S2 normal heart sound, no murmurs, no rub, no gallops and no clicks GI normal to inspection, nondistended, normoactive bowel sounds, soft to palpation and non-tender Extremity Extremity Narrative: Trace left lower extremity edema, no right lower extremity edema, no clot cyanosis or clubbing Neuro oriented x3, moves all extremities and no focal motor deficits Speech: speech normal Psych affect normal Psych Narrative: Eye contact is good, patient interacts appropriately Assessment & Plan Assessment/Plan (1) Pulmonary emboli: (2) Chest pressure: PLAN: Plan Chest pain secondary to acute bilateral pulmonary emboli -CT showed bilateral pulmonary emboli with filling defects in the distal aspects of the left main pulmonary artery and the descending right pulmonary artery -No right heart strain noted on echo or CT -Continue supplemental oxygen as needed -Continue Eliquis 10 mg twice daily for 7 days then transition to 5 mg twice daily indefinitely -Likely related to decreased mobility and activity -Echo was unremarkable for any acute findings -Venous duplex did show left lower extremity DVT Severe debility/inactivity -Continue PT/OT -Plan is discharge back to skilled facility ([facility] once pre-CERT is obtained -Patient is medically ready for discharge DM-2 uncontrolled -Patient's blood sugars are markedly elevated on presentation -Will increase basal insulin to 25 units twice daily -Increase prandial insulin to 10 units 3 times daily -Continue sliding scale -Hemoglobin A1c on 11/26/2023 was 13.1 History of orthostatic hypotension -Continue home midodrine Hypertension -continue metoprolol Hyperlipidemia -Continue home statin -Continue home fenofibrate GERD - continue home PPI CKD stage IIIb -Baseline serum creatinine is 1.38 -Remained stable -Continue to monitor Hypothyroidism -Continue levothyroxine Bipolar disorder/PTSD -Continue home medications of Celexa, Abilify, Seroquel -Recommended psychiatry follow-up outpatient History of tobacco abuse -Encouraged ongoing cessation DVT prophylaxis -Continue Eliquis as noted above CODE STATUS Full code Disposition: -Discharge back to skilled skilled facility once pre-CERT is obtained Charges/Coding Visit Charges Inpatient E&M: 69514 Subs Hosp L2
[2024-01-03] MEDS: Fenofibrate 48 MG Tablet PO (22:24)
[2024-01-03] MEDS: Atorvastatin Calcium 40 MG Tablet PO (22:24)
[2024-01-03] MEDS: QUEtiapine 25 MG Tablet 37.5 MG PO (22:24)
[2024-01-03] MEDS: Insulin Glargine-YFGN 100 UNIT/ML Pen 25 UNIT SC (22:29)
[2024-01-03 23:03] LABS: Bedside Glucose 276 mg/dL (74-106)
[2024-01-04] VITALS (7 sets, daily range): BP systolic 115–160; BP diastolic 53–73; PULSE 75–89; RESP 16–17; TEMP 36–37.1; O2SAT 94–100; BMI 32.8
[2024-01-04] MEDS: Morphine 2 MG/ML Syringe IV ×2 (01:02→15:35)
[2024-01-04] MEDS: Levothyroxine 175 MCG Tablet PO (04:51)
[2024-01-04] MEDS: oxyCODONE 5 MG Tablet PO ×4 (04:52→21:07)
[2024-01-04] MEDS: Acetaminophen 325 MG Tablet 650 MG PO ×4 (04:52→21:07)
[2024-01-04 07:44] LABS: Absolute Lymphocyte Count 2.79 X10^3/uL (0.83-4.51); Absolute Neutrophil Count 5.5 X10^3/uL (2.0-7.7); Basophil# 0.04 X10^3/uL; Basophil% 0.4 % (0-1); Eosinophil# 0.12 X10^3/uL; Eosinophils% 1.3 % (0-5); Hematocrit 32.4 % (37-47); Hemoglobin 10.3 g/dL (12.0-15.0); Lymphocyte # 2.79 X10^3/ul (0.83-4.51); Mean Corp Hgb Conc 31.8 g/dL (32-36); Mean Corpuscular Hgb 28.9 pg (27.0-32.0); Mean Corpuscular Volume 90.8 fL (81-99); Mean Platelet Vol. 9.3 fl (6.2-12.0); Monocyte# 0.46 X10^3/uL; Monocyte% 5.1 % (0-10); NRBC Flagged by Analyzer 0 % (0-5); Neutrophil # 5.45 X10^3/uL (2.7-7.7); Neutrophil % 60.6 % (47-70); Platelet Count 287 K/mm3 (150-450); RBC Distribution Width CV 13.4 % (11.6-14.6); RBC Distribution Width SD 44.1 fl (35.1-43.9); Red Blood Count 3.57 M/mm3 (4.2-5.4)
[2024-01-04] MEDS: Insulin Glargine-YFGN 100 UNIT/ML Pen 25 UNIT SC (08:04)
[2024-01-04] MEDS: Insulin Lispro 100 UNIT/ML INSULN.PEN 10 UNIT SC (08:05)
[2024-01-04] MEDS: Insulin Lispro 100 UNIT/ML INSULN.PEN SC ×3 (08:05→21:13)
[2024-01-04 08:27] LABS: Bedside Glucose 257 mg/dL (74-106)
[2024-01-04 08:31] LABS: Anion Gap 4 (5-15); BUN 31 mg/dL (7-18); Calcium,Total 8.9 mg/dL (8.5-10.1); Chloride 104 mmol/L (98-107); Creatinine, Serum 0.97 mg/dL (0.55-1.02); EST Glomerular Filtration Rate 62 mL/min (>60); Est Glom Filt Rate - Afr Amer 75 mL/min (>60); Estimated Creatinine Clearance 56.26 ml/min; Glucose 281 mg/dL (74-106); Potassium 4.3 mmol/L (3.5-5.1); Sodium Level 136 mmol/L (136-145)
[2024-01-04] MEDS: LORazepam 0.5 MG Tablet PO ×2 (08:59→21:07)
[2024-01-04] MEDS: Ranolazine 500 MG Tablet PO ×2 (08:59→21:08)
[2024-01-04] MEDS: Pantoprazole Sodium 40 MG Tablet PO (08:59)
[2024-01-04] MEDS: Metoprolol(XL)Succ 25 MG Tablet PO (08:59)
[2024-01-04] MEDS: Menthol/Lanolin/Calamine/Znox 113 GM Tube 1 APPLIC TOPICAL ×2 (09:00→15:36)
[2024-01-04] MEDS: Midodrine HCl 5 MG Tablet 10 MG PO ×2 (09:00→21:08)
[2024-01-04] MEDS: APIXABAN 5 MG TABLET 10 MG PO ×2 (09:00→21:07)
[2024-01-04 15:03] LABS: Bedside Glucose 271 mg/dL (74-106)
[2024-01-04] MEDS: hydrALAZINE 20 MG/ML Vial 10 MG IV (15:35)
[2024-01-04] MEDS: Insulin Lispro 100 UNIT/ML INSULN.PEN 15 UNIT SC (16:30)
--- NOTE | 2024-01-04 16:55 | PN.HOSP_ITS ---
Reason for Visit Reason for Visit: Chest pain Subjective Subjective Patient states she is still having some intermittent left-sided chest pain but i t is not persistent. Also complaining of leg pain related to her DVTs. Otherwise no complaints. We did discuss that I am trying to get better control of her blood sugars and she acknowledges that they have been running high. Objective Data Objective Data Vital Signs: Vital Signs Temp Pulse Resp BP Pulse Ox O2 Del Method O2 Flow Rate 96.8 F L 75 17 160/73 H 95 Room Air 2 01/04/24 15:00 01/04/24 15:35 01/04/24 15:00 01/04/24 15:00 01/04/24 15:00 01/04/24 15:00 01/03/24 22:31 Oxygen Flow Rate (L/min) 2 Oxygen Delivery Method Room Air Weight: 76.2 kg Body Mass Index (BMI) 32.8 Intake & Output: Intake and Output for Last 24 Hours 01/02/24 01/03/24 01/04/24 23:59 23:59 23:59 Intake Total 1020 / 1020 Output Total 900 / 900 Balance 120 / 120 Lab / Micro Data 01/04/24 07:25 01/04/24 07:25 Labs: Laboratory Results - last 24 hr 01/03/24 17:19: POC Glucose 356 H 01/03/24 22:28: POC Glucose 276 H 01/04/24 07:25: WBC 9.0, RBC 3.57 L, Hgb 10.3 L, Hct 32.4 L, MCV 90.8, MCH 28.9, MCHC 31.8 L, RDW Std Deviation 44.1 H, RDW Coeff of Anisa 13.4, Plt Count 287, MPV 9.3, Immature Gran % (Auto) 1.600 H, Neut % (Auto) 60.6, Lymph % (Auto) 31.0, [place] % (Auto) 5.1, Eos % (Auto) 1.3, Baso % (Auto) 0.4, Absolute Neuts (auto) 5.5, Absolute Lymphs (auto) 2.79, Nucleated RBC % 0, Sodium 136, Potassium 4.3, Chloride 104, Carbon Dioxide 28.0, Anion Gap 4 L, BUN 31 H, Creatinine 0.97, Estim Creat Clear Calc 56.26, Est GFR (MDRD) Af Amer 75, Est GFR (MDRD) Non-Af 62, BUN/Creatinine Ratio 32.0 H, Glucose 281 H, Calcium 8.9 01/04/24 08:03: POC Glucose 257 H 01/04/24 12:27: POC Glucose 271 H Physical Exam Const alert, oriented x3, no apparent distress and well nourished; Negative for healthy appearing Constitutional Narrative: Middle-age, white female, sitting up in a chair at the bedside watching television, appears comfortable and nontoxic, appears chronically ill General Appearance: cooperative and comfortable HEENT normocephalic, head/scalp atraumatic, hearing grossly normal bilaterally and moist oral mucous membranes HEENT Narrative: Mallampati is 2 Resp normal respiratory effort, normal air movement, no retractions, no use of accessory muscles and clear to auscultation bilaterally Resp Narrative: Diminished at bases bilaterally but no adventitious sounds Auscultation: Negative for rales, rhonchi or wheezes Cardio regular rate, regular rhythm, S1 normal heart sound, S2 normal heart sound, no murmurs, no rub, no gallops and no clicks GI normal to inspection, nondistended, normoactive bowel sounds, soft to palpation and non-tender Extremity Extremity Narrative: Trace left lower extremity edema, no right lower extremity edema, no cyanosis or clubbing, pedal pulses are 2+ Neuro oriented x3, moves all extremities and no focal motor deficits Neuro Narrative: Generalized weakness noted Speech: speech normal Psych mental status grossly normal and affect normal Psych Narrative: Eye contact is good, patient interacts appropriately Assessment & Plan Assessment/Plan (1) Pulmonary emboli: (2) Chest pressure: PLAN: Plan Chest pain secondary to acute bilateral pulmonary emboli -CT showed bilateral pulmonary emboli with filling defects in the distal aspects of the left main pulmonary artery and the descending right pulmonary artery -No right heart strain noted on echo or CT -Continue supplemental oxygen as needed -Continue Eliquis 10 mg twice daily for 7 days then transition to 5 mg twice daily indefinitely--> day 3 of 7 -Likely related to decreased mobility and activity -Echo was unremarkable for any acute findings -Venous duplex did show left lower extremity DVT -Patient is on room air Severe debility/inactivity -Continue PT/OT -Plan is discharge back to skilled facility ([facility]) once pre-CERT is obtained -Patient is medically ready for discharge DM-2 uncontrolled -Patient's blood sugars are markedly elevated on presentation -Improved but fasting blood sugar this morning was still 281 despite changes yesterday -Will increase basal insulin from 25 units twice daily to 30 units twice daily -Increase prandial insulin from 10 units 3 times daily to 15 units 3 times daily -Continue sliding scale -Hemoglobin A1c on 11/26/2023 was 13.1 History of orthostatic hypotension -Continue home midodrine Hypertension -continue metoprolol -If blood pressure can tolerate would recommend starting some low-dose lisinopril or ARB -Will continue to monitor trend and possibly start prior to discharge if able Hyperlipidemia -Continue home statin -Continue home fenofibrate GERD - continue home PPI CKD stage IIIb -Baseline serum creatinine is 1.38 -Remained stable -Continue to monitor Hypothyroidism -Continue levothyroxine Bipolar disorder/PTSD -Continue home medications of Celexa, Abilify, Seroquel -Recommended psychiatry follow-up outpatient History of tobacco abuse -Encouraged ongoing cessation DVT prophylaxis -Continue Eliquis as noted above CODE STATUS Full code Disposition: -Discharge back to skilled skilled facility once pre-CERT is obtained Charges/Coding Visit Charges Inpatient E&M: 05508 Subs Hosp L2
[2024-01-04] MEDS: Atorvastatin Calcium 40 MG Tablet PO (21:08)
[2024-01-04] MEDS: QUEtiapine 25 MG Tablet 37.5 MG PO (21:08)
[2024-01-04] MEDS: Fenofibrate 48 MG Tablet PO (21:08)
[2024-01-04] MEDS: Insulin Glargine-YFGN 100 UNIT/ML Pen 30 UNIT SC (21:14)
[2024-01-04 21:42] LABS: Bedside Glucose 270 mg/dL (74-106)
[2024-01-05 00:23] LABS: Bedside Glucose 269 mg/dL (74-106)
[2024-01-05] MEDS: oxyCODONE 5 MG Tablet PO ×3 (01:23→13:47)
[2024-01-05] MEDS: Senna/Docusate Sodium 1 Tablet 2 TABLET PO (01:23)
[2024-01-05] MEDS: Acetaminophen 325 MG Tablet 650 MG PO ×3 (01:23→13:47)
[2024-01-05 02:42] VITALS: BP 106/47; PULSE 80; RESP 16; TEMP 36.5; O2SAT 93
[2024-01-05] MEDS: Ondansetron 4 MG/2 ML Vial IV (05:12)
[2024-01-05] MEDS: Morphine 2 MG/ML Syringe IV (05:12)
--- NOTE | 2024-01-05 05:55 | EKG12_ITS ---
Test Reason : CP Blood Pressure : / mmHG Vent. Rate : 076 BPM Atrial Rate : 076 BPM P-R Int : 160 ms QRS Dur : 084 ms QT Int : 404 ms P-R-T Axes : 023 -17 004 degrees QTc Int : 454 ms Normal sinus rhythm Inferior infarct , age undetermined Abnormal ECG No previous ECGs available Confirmed by OSCAR SANTANA, MIRACLE ([id number]), editor trade journal JAMAAL CALLES ([id number]) on 01/06/2024 9:39:39 AM Referred By: DR Vasquez Confirmed By:MIRACLE MOORE MD
[2024-01-05 06:35] VITALS: BP 106/58; PULSE 73; RESP 18; TEMP 36.7; O2SAT 94
[2024-01-05 07:12] LABS: Hematocrit 32.7 % (37-47); Hemoglobin 10.6 g/dL (12.0-15.0); Mean Corp Hgb Conc 32.4 g/dL (32-36); Mean Corpuscular Hgb 29.7 pg (27.0-32.0); Mean Corpuscular Volume 91.6 fL (81-99); Mean Platelet Vol. 9.3 fl (6.2-12.0); Platelet Count 297 K/mm3 (150-450); RBC Distribution Width CV 13.4 % (11.6-14.6); RBC Distribution Width SD 45.5 fl (35.1-43.9); Red Blood Count 3.57 M/mm3 (4.2-5.4)
[2024-01-05 07:31] LABS: Anion Gap 7 (5-15); BUN 33 mg/dL (7-18); Calcium,Total 8.6 mg/dL (8.5-10.1); Chloride 101 mmol/L (98-107); EST Glomerular Filtration Rate 60 mL/min (>60); Est Glom Filt Rate - Afr Amer 73 mL/min (>60); Estimated Creatinine Clearance 54.57 ml/min; Glucose 237 mg/dL (74-106); Potassium 3.9 mmol/L (3.5-5.1); Sodium Level 136 mmol/L (136-145)
--- NOTE | 2024-01-05 08:54 | CASEMGMT ---
Discharge Planning Updates sent via [facility] to [facility]. Precert is still pending. Rachel Bueno, Discharge Planning Asst.
[2024-01-05 09:24] VITALS: BP 105/56; PULSE 73; RESP 17; TEMP 37.1; O2SAT 95
[2024-01-05 09:28] LABS: Bedside Glucose 212 mg/dL (74-106)
[2024-01-05] MEDS: Midodrine HCl 5 MG Tablet 10 MG PO (09:28)
[2024-01-05 09:29] VITALS: PULSE 73
[2024-01-05] MEDS: Metoprolol(XL)Succ 25 MG Tablet PO (09:29)
[2024-01-05] MEDS: Pantoprazole Sodium 40 MG Tablet PO (09:29)
[2024-01-05] MEDS: Ranolazine 500 MG Tablet PO (09:29)
[2024-01-05] MEDS: APIXABAN 5 MG TABLET 10 MG PO (09:29)
[2024-01-05] MEDS: LORazepam 0.5 MG Tablet PO (09:30)
[2024-01-05] MEDS: Insulin Lispro 100 UNIT/ML INSULN.PEN SC (09:30)
[2024-01-05] MEDS: Insulin Lispro 100 UNIT/ML INSULN.PEN 20 UNIT SC (09:32)
[2024-01-05] MEDS: Insulin Glargine-YFGN 100 UNIT/ML Pen 35 UNIT SC (09:32)
[2024-01-05] MEDS: Menthol/Lanolin/Calamine/Znox 113 GM Tube 1 APPLIC TOPICAL (09:33)
--- NOTE | 2024-01-05 09:41 | CASEMGMT ---
Discharge Planning W has obtained precert. SW updated. Rachel Bueno, Discharge Planning Asst.
--- NOTE | 2024-01-05 11:16 | DS.PCM_ITS ---
Providers Date of Admission: 01/01/24 Date of Discharge: 01/05/24 Primary Care Physician: Dr. Jarred Lopez MD Reason For Visit: BL PE, CHEST PAIN Diagnosis Discharge Diagnosis (1) Pulmonary emboli: Status: Acute Code(s): I26.99 - Other pulmonary embolism without acute cor pulmonale (2) Chest pressure: Status: Acute Code(s): R07.89 - Other chest pain Medications at Discharge Home Medications rizatriptan 10 mg tablet 10 mg PO PRN Migraine Symptoms 12/27/17 atorvastatin 40 mg tablet 40 mg PO QHS #30 tabs 05/21/22 metoprolol succinate 25 mg tablet,extended release 24 hr 25 mg PO DAILY #30 tabs 05/21/22 levothyroxine 175 mcg capsule 175 mcg PO DAILY 06/12/22 pantoprazole 40 mg tablet,delayed release 40 mg PO DAILY 06/12/22 ranolazine 500 mg tablet,extended release,12 hr 500 mg PO BID #60 tabs 06/12/22 midodrine 10 mg tablet 10 mg PO BID 09/09/22 fenofibrate 50 mg capsule 50 mg PO QHS 01/29/23 lorazepam 0.5 mg tablet 0.5 mg PO Q12H anxeity 01/29/23 quetiapine 25 mg tablet 37.5 mg PO QHS 01/29/23 acetaminophen 325 mg tablet 650 mg (2 x 325 mg) PO Q6H PRN PRN Pain 1-10 Or Fever >100.7 #0 tabs 11/24/23 melatonin 3 mg tablet 3 mg PO QHS PRN PRN Insomnia #0 tabs 11/24/23 potassium chloride 20 mEq tablet,extended release(part/cryst) 20 meq PO 1XD #0 tabs 11/24/23 apixaban 5 mg tablet 5 mg PO BID #10 tabs 01/05/24 apixaban 5 mg tablet (Eliquis) 10 mg (2 x 5 mg) PO BID #0 tabs 01/05/24 insulin glargine-yfgn 100 unit/mL (3 mL) subcutaneous pen 35 unit (0.35 mL) subcut BREAKFAST #0 mL 01/05/24 insulin glargine-yfgn 100 unit/mL (3 mL) subcutaneous pen 35 unit (0.35 mL) tobin bcut QHS #0 mL 01/05/24 insulin lispro 100 unit/mL subcutaneous pen (Humalog KwikPen (U-100) Insulin) 20 unit (0.2 mL) subcut TIDAC #0 mL 01/05/24 oxycodone 5 mg tablet 5 mg PO Q4H PRN PRN Pain Score 4-10 1 day #6 tabs 01/05/24 sennosides 8.6 mg-docusate sodium 50 mg tablet (Stool Softener-Stimulant Laxative) 2 tab PO BID PRN PRN Constipation #0 tabs 01/05/24 Hospital Course Procedures 2-D Echocardiogram Summary of Care Provided Minutes Spent on Discharge: 38 Hospital Course: Ms. Brar is a 58-year-old white female who presented to the emergency depa rtment at [facility] for acute onset chest pain with radiation to left arm. She was also noted to have worsening swelling in her left lower extremity for several days. A CTA of her chest was performed and she was found to have bilateral PEs. Her troponin was normal and there was low concern for right heart strain. She was given therapeutic Lovenox and admitted for further workup. She did appear significantly weak on presentation. Echocardiogram was performed on 01/02/2024 and showed an EF of 70% no significant valvular abnormalities. She had mild pulmonary artery systolic hypertension with a pulm artery systolic pressure of 35 mmHg and a normal functioning RV. Due to the swelling a Doppler of her lower extremities was performed and acute DVT in the left posterior tibial vein was found as well as a small superficial thrombophlebitis in the left saphenous vein. Her right lower extremity was unremarkable for any clots. She was tra nsitioned to therapeutic apixaban at 10 mg p.o. twice daily which she will complete 7-day course and then transition to 5 mg p.o. twice daily indefinitely at this point or until her mobility improves. We suspected that her immobility recently related to her back issues was the etiology of her forming DVT/PE. She was trialed on room air and oxygen saturations were 89% show she was replaced on 2 L nasal cannula. We eventually were able to wean her to room air. She had intermittent chest pain however she had negative cardiac enzymes, had a cardiac catheterization that had nonobstructive disease in 2021 and her echocardiogram showed no wall motion abnormality. It was suspected that her frida st pain intermittently was related to her PE. She also complained of leg pain. I have asked her to follow-up with cardiology after discharge as it has been almost 2 years since she has followed up with her hand glove cleaner. She was strongly encouraged to continue incentive spirometer. We also found that she had a markedly elevated hemoglobin A1c on presentation with it being 13.1 on 11/26/2023. We increased her basal insulin to 30 units twice daily and increase her prandial insulin to 15 units 3 times daily. She was instructed to continue this as an outpatient and will need a repeat hemoglobin A1c in 3 months. She was seen by physical and Occupational Therapy and they felt she still needed skilled services so she was discharged to [facility] after pre-CERT was obtained on 01/05/2024. Again, she will need cardiology follow-up as noted above and primary care physician follow-up within the next 2 weeks. Discharge diagnoses: Chest pain Acute bilateral pulmonary emboli Severe debility And activity DM-2 uncontrolled History of orthostatic hypotension Hypertension Hyperlipidemia GERD CKD stage IIIb Hypothyroidism Bipolar disorder PTSD History of tobacco abuse Obesity Physical Exam Const alert, oriented x3, no apparent distress, no limitations and well nourished; Negative for healthy appearing Constitutional Narrative: Middle-age, white female, lying in bed watching television, appears comfortable and nontoxic, appears chronically ill General Appearance: cooperative, comfortable, well kempt and well developed Orientation / Consciousness: awake, oriented to person, oriented to place and oriented to time Exam Limitations: no limitations Nutritional Appearance: obese HEENT normocephalic, head/scalp atraumatic, hearing grossly normal bilaterally and moist oral mucous membranes HEENT Narrative: Mallampati 2-3, no thrush Eyes PERRL, EOMs intact bilaterally and conjunctivae normal Eyes Narrative: No scleral icterus Neck supple and no JVD Neck Narrative: Trachea midline, no thyroid enlargement Resp normal respiratory effort, normal air movement, no retractions, no use of access ory muscles and clear to auscultation bilaterally Resp Narrative: Diminished at bases bilaterally but no adventitious sounds Auscultation: Negative for rales, rhonchi or wheezes Cardio regular rate, regular rhythm, S1 normal heart sound, S2 normal heart sound, no murmurs, no rub, no gallops and no clicks GI normal to inspection, nondistended, normoactive bowel sounds, soft to palpation and non-tender Extremity full ROM Extremity Narrative: Trace left lower extremity edema, no right lower extremity edema, no cyanosis or clubbing, pedal pulses are 2+ Skin no rashes or lesions noted, no wounds, skin turgor normal and no jaundice Neuro oriented x3, CN's II-XII intact bilaterally, moves all extremities and no focal motor deficits Neuro Narrative: Generalized weakness noted Speech: speech normal Psych mental status grossly normal and affect normal Psych Narrative: Eye contact is good, patient interacts appropriately Weight / BMI Weight Weight: 76.2 kg Body Mass Index (BMI) 32.8 ABG / Lab / Microbiology Data 01/05/24 06:45 01/05/24 06:45 Laboratory: Laboratory Results - last 24 hr 01/04/24 12:27: POC Glucose 271 H 01/04/24 16:28: POC Glucose 270 H 01/04/24 21:13: POC Glucose 269 H 01/05/24 06:45: WBC 10.0, RBC 3.57 L, Hgb 10.6 L, Hct 32.7 L, MCV 91.6, MCH 29.7, MCHC 32.4, RDW Std Deviation 45.5 H, RDW Coeff of Anisa 13.4, Plt Count 297, MPV 9.3, Sodium 136, Potassium 3.9, Chloride 101, Carbon Dioxide 28.0, Anion Gap 7, BUN 33 H, Creatinine 1.00, Estim Creat Clear Calc 54.57, Est GFR (MDRD) Af Amer 73, Est GFR (MDRD) Non-Af 60, BUN/Creatinine Ratio 33.0 H, Glucose 237 H, Calcium 8.6 01/05/24 08:54: POC Glucose 212 H Meaningful Use Info Meaningful Use Diagnoses (Choose all that apply): VTE VTE Anticoag overlap given w/in hospital stay or rx'd at dc?: No Pt receive overlap for 5 days?: No Reason overlap not ordered, prescribed, or given for 5 days: Treatment Not Indicated Discharge Plan Admission Admit Date/Time: 01/01/24 22:28 Primary Reason for Your Visit: Chest pain Attending Provider: Ana Rivera Primary Care Provider: Jarred Lopez Consulting Providers: Hansa Cast; Chavez Alcala Discharge Orders/Prescriptions Prescriptions: New insulin glargine-yfgn 100 unit/mL (3 mL) Insulin Pen 35 unit subcut QHS Qty: 0 0RF insulin glargine-yfgn 100 unit/mL (3 mL) Insulin Pen 35 unit subcut BREAKFAST Qty: 0 0RF insulin lispro [Humalog KwikPen Insulin] 100 unit/mL Insulin Pen 20 unit subcut TIDAC Qty: 0 0RF Eliquis 5 mg Tablet 10 mg PO BID Qty: 0 0RF oxycodone 5 mg Tablet 5 mg PO Q4H PRN PRN (Reason: Pain Score 4-10) 1 Days Qty: 6 0RF sennosides-docusate sodium [Stool Softener-Stimulant Laxat] 8.6-50 mg Tablet 2 tab PO BID PRN PRN (Reason: Constipation) Qty: 0 0RF apixaban 5 mg tablet 5 mg PO BID Qty: 10 0RF Rx Instructions: Start the 5 mg twice daily dosing on 01/09/2024 after completion of the 10 mg twice daily course Continued levothyroxine 175 mcg capsule 175 mcg PO DAILY pantoprazole 40 mg tablet,delayed release (DR/EC) 40 mg PO DAILY ranolazine 500 mg tablet extended release 12 hr 500 mg PO BID Qty: 60 11RF midodrine 10 mg tablet 10 mg PO BID rizatriptan 10 tablet 10 mg PO PRN Patient Comments: metoprolol succinate 25 mg Tablet Extended Release 24 Hr 25 mg PO DAILY Qty: 30 2RF atorvastatin 40 mg tablet 40 mg PO QHS Qty: 30 2RF quetiapine 25 mg tablet 37.5 mg PO QHS lorazepam 0.5 mg tablet 0.5 mg PO Q12H fenofibrate 50 mg Capsule 50 mg PO QHS acetaminophen 325 mg Tablet 650 mg PO Q6H PRN PRN (Reason: Pain 1-10 Or Fever >100.7) Qty: 0 0RF melatonin 3 mg Tablet 3 mg PO QHS PRN PRN (Reason: Insomnia) Qty: 0 0RF potassium chloride 20 mEq Tablet,Er Particles/Crystals 20 meq PO 1XD Qty: 0 0RF Discontinued insulin glargine-yfgn 100 unit/mL (3 mL) Insulin Pen 15 unit subcut QHS Qty: 0 0RF insulin glargine-yfgn 100 unit/mL (3 mL) Insulin Pen 15 unit subcut BREAKFAST Qty: 0 0RF insulin lispro [Humalog KwikPen Insulin] 100 unit/mL Insulin Pen 5 unit subcut BREAKFAST Qty: 0 0RF insulin lispro [Humalog KwikPen Insulin] 100 unit/mL Insulin Pen 5 unit subcut DINNER Qty: 0 0RF insulin lispro [Humalog KwikPen Insulin] 100 unit/mL Insulin Pen 5 unit subcut LUNCH Qty: 0 0RF Referrals / Follow Up: Jarred Lopez MD [Primary Care Provider] - Miriam Cameron NP, R D INTERN-C [Non-Staff -Ordering Privileges] - Within 1 Month (CAD follow up) Disposition Disposition (needs filled in before D/C Order can be placed): Assisted Facility Charges/Coding Visit Charges Inpatient E&M: 71857 SNF Disch >30 Min
--- NOTE | 2024-01-05 11:32 | PCM.TXEXTCAR ---
Diet Diet Order/Speech Therapy: 01/01/24 23:36 Diet: Cardiac: Calorie-Controlled Food consistency:: Regular Liquid Consistency:: Regular/Thin Dietary Modifications:: Consistent Carbohydrate Type of Dietary Supplement:: Glucerna Shake Diet Comments: 240mL glucerna shake w/ breakfast How many daily calories?: 1800 calorie Routine Orders/Code Status Suppository Frequency: Daily PRN O2 Frequency: PRN Keep PO Greater than or Equal to (%): 89 Routine Lab Work: CBC (1 week) and BMP (1 week) Code Status: Full Code Therapies Weight Bearing: Full weight bearing Physical Therapy: Eval and Treat Occupational Therapy: Eval and Treat Problem/Diagnosis (1) Pulmonary emboli: Status: Acute Code(s): I26.99 - Other pulmonary embolism without acute cor pulmonale (2) Chest pressure: Status: Acute Code(s): R07.89 - Other chest pain Allergies/Procedures Done in Hospital Allergies celecoxib [From Celebrex] Allergy (Verified 06/10/23 14:56) Itching ciprofloxacin [From Cipro] Allergy (Verified 06/10/23 14:56) Swelling ciprofloxacin HCl [From Cipro] Allergy (Verified 06/10/23 14:56) Swelling codeine Allergy (Verified 06/10/23 14:56) Hives ibuprofen Allergy (Verified 06/10/23 14:56) Hives naproxen Allergy (Verified 06/10/23 14:56) Hives Penicillins Allergy (Verified 06/10/23 14:56) Hives tramadol HCl [From Ultram] Allergy (Verified 06/10/23 14:56) Hives ketorolac [From Toradol] Adverse Reaction (Verified 06/10/23 14:56) Swelling Procedures: 2-D Echocardiogram and - (Lower extremity ultrasound/CTA chest) Type of Care/Length of Stay Estimated LOS: Convalescent Care Less Than 30 days Type of Care Needed: Skilled Rehab Potential: Fair Prognosis: Fair Additional Orders/Day of Discharge Day of Discharge: 01/05/24 Dietary and Speech Recommendations Dietitian Recommendations/Changes: Will continue 1800 calorie/consistent carbohydrate, cardiac diet. Will add 240mL glucerna shake w/ breakfast tray as tolerated. Additional ONS as needed once PO better established with meals. Follow Up Care Please follow up with your Primary Care Physician in: 1-2 weeks Please Follow Up With: Miriam Cameron NP, STRATEGIC MARKETING LEADER-C When: 1 month Discharge Plan Admission Admit Date/Time: 01/01/24 22:28 Primary Reason for Your Visit: Chest pain Attending Provider: Ana Rivera Primary Care Provider: Jarred Lopez Consulting Providers: Hansa Cast; Chavez Alcala Discharge Orders/Prescriptions Prescriptions: New insulin glargine-yfgn 100 unit/mL (3 mL) Insulin Pen 35 unit subcut QHS Qty: 0 0RF insulin glargine-yfgn 100 unit/mL (3 mL) Insulin Pen 35 unit subcut BREAKFAST Qty: 0 0RF insulin lispro [Humalog KwikPen Insulin] 100 unit/mL Insulin Pen 20 unit subcut TIDAC Qty: 0 0RF Eliquis 5 mg Tablet 10 mg PO BID Qty: 0 0RF oxycodone 5 mg Tablet 5 mg PO Q4H PRN PRN (Reason: Pain Score 4-10) 1 Days Qty: 6 0RF sennosides-docusate sodium [Stool Softener-Stimulant Laxat] 8.6-50 mg Tablet 2 tab PO BID PRN PRN (Reason: Constipation) Qty: 0 0RF apixaban 5 mg tablet 5 mg PO BID Qty: 10 0RF Rx Instructions: Start the 5 mg twice daily dosing on 01/09/2024 after completion of the 10 mg twice daily course Continued levothyroxine 175 mcg capsule 175 mcg PO DAILY pantoprazole 40 mg tablet,delayed release (DR/EC) 40 mg PO DAILY ranolazine 500 mg tablet extended release 12 hr 500 mg PO BID Qty: 60 11RF midodrine 10 mg tablet 10 mg PO BID rizatriptan 10 tablet 10 mg PO PRN Patient Comments: metoprolol succinate 25 mg Tablet Extended Release 24 Hr 25 mg PO DAILY Qty: 30 2RF atorvastatin 40 mg tablet 40 mg PO QHS Qty: 30 2RF quetiapine 25 mg tablet 37.5 mg PO QHS lorazepam 0.5 mg tablet 0.5 mg PO Q12H fenofibrate 50 mg Capsule 50 mg PO QHS acetaminophen 325 mg Tablet 650 mg PO Q6H PRN PRN (Reason: Pain 1-10 Or Fever >100.7) Qty: 0 0RF melatonin 3 mg Tablet 3 mg PO QHS PRN PRN (Reason: Insomnia) Qty: 0 0RF potassium chloride 20 mEq Tablet,Er Particles/Crystals 20 meq PO 1XD Qty: 0 0RF Discontinued insulin glargine-yfgn 100 unit/mL (3 mL) Insulin Pen 15 unit subcut QHS Qty: 0 0RF insulin glargine-yfgn 100 unit/mL (3 mL) Insulin Pen 15 unit subcut BREAKFAST Qty: 0 0RF insulin lispro [Humalog KwikPen Insulin] 100 unit/mL Insulin Pen 5 unit subcut BREAKFAST Qty: 0 0RF insulin lispro [Humalog KwikPen Insulin] 100 unit/mL Insulin Pen 5 unit subcut DINNER Qty: 0 0RF insulin lispro [Humalog KwikPen Insulin] 100 unit/mL Insulin Pen 5 unit subcut LUNCH Qty: 0 0RF Referrals / Follow Up: Jarred Lopez MD [Primary Care Provider] - Miriam Cameron STRATEGIC MARKETING LEADER, STRATEGIC MARKETING LEADER-C [Non-Staff -Ordering Privileges] - Within 1 Month (CAD follow up) Disposition Disposition (needs filled in before D/C Order can be placed): Shelter Facility
[2024-01-05 12:15] LABS: Bedside Glucose 138 mg/dL (74-106)
[2024-01-05 13:45] VITALS: BP 96/56; PULSE 78; RESP 18; TEMP 36.7; O2SAT 96
--- NOTE | 2024-01-05 14:21 | NURSING ---
Report called to [facility]. Talked to bedside RN
--- NOTE | 2024-01-05 14:55 | CASEMGMT ---
Discharge Planning Discharge orders, signed med list, covid results, and transport time sent to [facility] via [facility]. Physicians scheduled to transport patient by wheelchair at 2:30p. Nursing, SW, and patient updated. left for her . Rachel Bueno, Discharge Planning Asst.
== END 2024-01-05 11:25 | disposition skilled nursing facility (03) ==
LOC: ED 22:35 → PCU 23:11
PROVIDERS: Hospitalist; Admitting Provider Family Medicine; Emergency Provider Emergency Medicine; PCP Family Medicine; Visit Provider Internal Medicine
DX: I26.99 Other pulmonary embolism without acute cor pulmonale (principal); F31.9 Bipolar disorder, unspecified; E11.22 Type 2 diabetes mellitus with diabetic chronic kidney disease; E11.65 Type 2 diabetes mellitus with hyperglycemia; Z79.4 Long term (current) use of insulin; N18.32 Chronic kidney disease, stage 3b; E03.9 Hypothyroidism, unspecified; Z87.891 Personal history of nicotine dependence; I12.9 Hypertensive chronic kidney disease with stage 1 through stage 4 chronic kidney disease, or unspecified chronic kidney disease; K21.9 Gastro-esophageal reflux disease without esophagitis; F41.9 Anxiety disorder, unspecified; I82.813 Embolism and thrombosis of superficial veins of lower extremities, bilateral; R53.81 Other malaise; E66.9 Obesity, unspecified; G89.29 Other chronic pain; Z68.34 Body mass index [BMI] 34.0-34.9, adult; E78.5 Hyperlipidemia, unspecified; F43.10 Post-traumatic stress disorder, unspecified; Z79.899 Other long term (current) drug therapy; Z79.890 Hormone replacement therapy; D64.9 Anemia, unspecified; Z87.440 Personal history of urinary (tract) infections; I95.1 Orthostatic hypotension
CPT/HCPCS: 36415; 71045; 71275; 80048; 80053; 82962; 84439; 84443; 84484; 85025; 85027; 85379; 87811; 93005; 93306; 93970; 94668; 96361; 96372; 96374; 96375; 96376; 97162; 97166; 97530; 97535; 97802; 99221; 99284; Q9957; Q9967; A4216; C8929; G0378; J2405

== ENCOUNTER 2024-01-20 01:00 | Emergency (ER) | payer MEDICARE, MEDICAID, SELFPAY ==
[2024-01-20 01:04] VITALS: BP 140/61; PULSE 87; RESP 12; TEMP 37; O2SAT 97; BMI 36.7
--- NOTE | 2024-01-20 01:18 | EKG12_ITS ---
Test Reason : CP Blood Pressure : / mmHG Vent. Rate : 085 BPM Atrial Rate : 085 BPM P-R Int : 160 ms QRS Dur : 082 ms QT Int : 386 ms P-R-T Axes : 030 -24 030 degrees QTc Int : 459 ms Normal sinus rhythm Low voltage QRS Septal infarct , age undetermined Abnormal ECG Confirmed by OSCAR SANTANA, MIRACLE ([id number]), brands editor JAMAAL CALLES ([id number]) on 01/20/2024 9:20:46 AM Referred By: BARON Confirmed By:MIRACLE MOORE MD
--- NOTE | 2024-01-20 01:18 | RAD_ITS ---
EXAM: XR CHEST, 1 VIEW CLINICAL INDICATION: CHEST PAIN CHEST PAIN TECHNIQUE: Frontal view of the chest. COMPARISON: Chest x-ray 01/01/2024. CTA chest 01/01/2024.. FINDINGS: LUNGS AND PLEURAL SPACES: Unremarkable. No consolidation or edema. No pneumothorax. No effusion. HEART: Unremarkable. Cardiac silhouette not enlarged. MEDIASTINUM: Central airways and mediastinal contour are unremarkable. BONES/JOINTS: Unremarkable. No acute fracture. SOFT TISSUES: Unremarkable. RAD/Chest 1 View (Portable) IMPRESSION: No radiographic evidence of acute cardiopulmonary disease. Electronically Signed: Edward Rush MD at 2:09 EDT Reading Location ID and State: [facility] / [place] , Service support ,
--- NOTE | 2024-01-20 01:18 | EDS_ITS ---
HPI History of Present Illness Chief Complaint: Chest Pain Narrative Narrative: 58-year-old female presents from [facility] with sharp, stabbing chest pain that awoke her from sleep. She states it radiates to her neck. She states that she has history of blood clots around my heart but is unsure if she is on a blood thinner. She has been at the facility for the last 2 months for rehabilitation. She has past medical history of coronary artery disease, chronic kidney disease, diabetes, hypertension, and hyperlipidemia. She denies any exacerbating or alleviating factors to her sharp, stabbing chest pain. EMS has administered aspirin and nitroglycerin. She presents because of chest pain that awoke her from sleep. [facility] Medical History Anxiety and depression Carpal tunnel syndrome Chronic back pain CKD (chronic kidney disease) stage 3, GFR 30-59 ml/min Diabetes mellitus, type 2 Essential hypertension Former smoker History of left heart catheterization (LHC) (~05/21/22) HTN (hypertension) Hyperlipidemia Hypothyroidism Intervertebral disc disorder with radiculopathy of lumbar region Kidney stones Migraines Normochromic normocytic anemia Obesity (BMI 35.0-39.9 without comorbidity) Opiate abuse, continuous Orthostatic hypotension Parathyroid disease Pulmonary emboli Stomach ulcer Thyroid disease Home Medications rizatriptan 10 mg tablet 10 mg PO PRN Migraine Symptoms 12/27/17 [History Last Taken 01/01/24] atorvastatin 40 mg tablet 40 mg PO QHS #30 tabs 05/21/22 [Rx Last Taken 12/31/23] metoprolol succinate 25 mg tablet,extended release 24 hr 25 mg PO DAILY #30 tabs 05/21/22 [Rx Last Taken 01/01/24] levothyroxine 175 mcg capsule 175 mcg PO DAILY 06/12/22 [History Last Taken 01/01/24] pantoprazole 40 mg tablet,delayed release 40 mg PO DAILY 06/12/22 [History Last Taken 01/01/24] ranolazine 500 mg tablet,extended release,12 hr 500 mg PO BID #60 tabs 06/12/22 [Rx Last Taken 01/01/24] midodrine 10 mg tablet 10 mg PO BID 09/09/22 [History Last Taken 01/01/24] fenofibrate 50 mg capsule 50 mg PO QHS 01/29/23 [History Last Taken 12/31/23] lorazepam 0.5 mg tablet 0.5 mg PO Q12H anxeity 01/29/23 [History Last Taken 12/31/23] quetiapine 25 mg tablet 37.5 mg PO QHS 01/29/23 [History Last Taken 11/15/23] acetaminophen 325 mg tablet 650 mg (2 x 325 mg) PO Q6H PRN PRN Pain 1-10 Or Fever >100.7 #0 tabs 11/24/23 [Rx Last Taken Unknown] melatonin 3 mg tablet 3 mg PO QHS PRN PRN Insomnia #0 tabs 11/24/23 [Rx Last Taken 12/31/23] potassium chloride 20 mEq tablet,extended release(part/cryst) 20 meq PO 1XD #0 tabs 11/24/23 [Rx Last Taken 01/01/24] apixaban 5 mg tablet 5 mg PO BID #10 tabs 01/05/24 [Rx Last Taken Unknown] apixaban 5 mg tablet (Eliquis) 10 mg (2 x 5 mg) PO BID #0 tabs 01/05/24 [Rx Last Taken Unknown] insulin glargine-yfgn 100 unit/mL (3 mL) subcutaneous pen 35 unit (0.35 mL) subcut BREAKFAST #0 mL 01/05/24 [Rx Last Taken Unknown] insulin glargine-yfgn 100 unit/mL (3 mL) subcutaneous pen 35 unit (0.35 mL) subcut QHS #0 mL 01/05/24 [Rx Last Taken Unknown] insulin lispro 100 unit/mL subcutaneous pen (Humalog KwikPen (U-100) Insulin) 20 unit (0.2 mL) subcut TIDAC #0 mL 01/05/24 [Rx Last Taken Unknown] oxycodone 5 mg tablet 5 mg PO Q4H PRN PRN Pain Score 4-10 1 day #6 tabs 01/05/24 [Rx Last Taken Unknown] sennosides 8.6 mg-docusate sodium 50 mg tablet (Stool Softener-Stimulant Laxative) 2 tab PO BID PRN PRN Constipation #0 tabs 01/05/24 [Rx Last Taken Unknown] Allergy/AdvReac Type Severity Reaction Status Date / Time celecoxib [From Celebrex] Allergy Itching Verified 06/10/23 14:56 ciprofloxacin [From Cipro] Allergy Swelling Verified 06/10/23 14:56 ciprofloxacin HCl Allergy Swelling Verified 06/10/23 14:56 [From Cipro] codeine Allergy Hives Verified 06/10/23 14:56 ibuprofen Allergy Hives Verified 06/10/23 14:56 naproxen Allergy Hives Verified 06/10/23 14:56 Penicillins Allergy Hives Verified 06/10/23 14:56 tramadol HCl [From Ultram] Allergy Hives Verified 06/10/23 14:56 ketorolac [From Toradol] AdvReac Swelling Verified 06/10/23 14:56 Family History Mother Cancer CVA (cerebral vascular accident) Hypertension Heart disease Myocardial infarction Diabetes Father Asthma Surgical History H/O: hysterectomy History of cholecystectomy Hx of section S/P trigger finger release Social History household members: other details: currently living in a NH for therapy for chronic back pain housing: long term Smoking Status: Former smoker Tobacco: How many years used: 46 how long ago did patient quit smoking: Quit 09/2021, smoked 1 ppd since teen until quit. alcohol intake: never substance use type: other details: History of chronic opiate use. Denies abuse. ROS ROS ED ROS Narrative Constitutional: No fever, no chills. HEENT: No sore throat. Radiating pain from chest to neck pain. No loss of vision. No rhinorrhea. Cardiovascular: Midsternal to left-sided chest pain. No palpitations. No pedal edema. Respiratory: No cough, no shortness of breath. Abdominal: No abdominal pain. No nausea. No vomiting. Genitourinary: No dysuria. No hematuria. Musculoskeletal: No myalgias. No arthralgias. Neurologic: No headaches. No dizziness. No lightheadedness. Skin: No rash. No change in color. Psychiatric: No depression. No anxiety. EXAM Physical Exam Narrative Exam Narrative: Afebrile. Vital signs noted. HEENT: Normocephalic. Atraumatic. PERRL, EOMI. Neck soft and supple. No point tenderness or step off. Cardiovascular: Regular rate and rhythm. No murmurs, rubs, or gallops appreciated. Respiratory: No tachypnea. Lungs clear to auscultation bilaterally. Gastrointestinal: Abdomen soft, nontender, with normoactive bowel sounds. No rebound or guarding. Neurological: Awake. Alert. Nonfocal, nonlateralizing. Skin: No rash. Normal color. No pallor. Musculoskeletal: No pedal edema. Full range of motion extremities. Psychiatric: Mild anxiety. Const Vital Signs: 01/20/24 01:04 01/20/24 01:09 01/20/24 02:01 Temperature 98.6 F Temperature Source Temporal Pulse Rate 87 78 Respiratory Rate 12 12 Respiratory Effort Normal Blood Pressure 140/61 H 127/64 H Blood Pressure Mean 87 85 Pulse Ox 97 95 Oxygen Delivery Method Room Air Room Air 01/20/24 03:00 01/20/24 03:00 01/20/24 04:00 Temperature Temperature Source Pulse Rate 76 75 Respiratory Rate 17 14 Respiratory Effort Blood Pressure 130/61 H 130/59 H Blood Pressure Mean 84 80 Pulse Ox 98 98 95 Oxygen Delivery Method Room Air Room Air Room Air Heart Score History: Slightly/Non-Suspicious ECG: Normal Age: >45 - <65 years Risk Factors: >/= 3 Risk Factors or History of CAD Score: 3 MDM MDM MDM Narrative Medical decision making narrative: In the differential diagnosis is pneumonia versus pneumothorax versus ACS versus pulmonary embolism. I reviewed her medication list with the RN and she is already on Eliquis. I do not feel she needs a D-dimer scan because she states that they bring her her medication daily and she has been there for 2 months. EKG was obtained and interpreted by myself independently as normal sinus rhythm at 85 bpm without ectopy or acute ST changes. No STEMI. History and physical does not support pneumothorax or pneumonia. In review of her previous problem list she has had chest pain in the past. I do feel that she would be able to be ruled out with biomarkers. I reviewed her laboratory work and she has normal white count of 8.4, hemoglobin stable at 11.3, hematocrit 35.6 with platelet count normal at 379. Her electrolyte panel is grossly unremarkable with a normal sodium of 139 potassium 4.3. Glucose appropriately elevated at 83. Chest x-ray in 1 view interpreted by myself independently shows no evidence of an acute process, no pneumonia, no pneumothorax. I do not feel antibiotics are indicated. Her initial high- sensitivity troponin is 18, and review of her prior labs, this appears to be her baseline. Patient requested something for pain and nausea, I reviewed her long term paperwork and she has history of chronic pain. She was given 1 oxycodone tablet here and Zofran ODT. As long as her second troponin does not show a large delta troponin, I do feel that she would be able to be discharged back to the senior living facility. As her second troponin is 21 and she has a negative delta troponin, I feel she can be discharged to follow-up. Disposition is discharged to the senior living facility in stable condition. History & Record Review Discussion w/independent historian: Patient Additional record(s) reviewed:: Prior labs Lab Data Attestation: I reviewed the patient's lab results. Labs: Laboratory Results - last 24 hr 01/20/24 01/20/24 00:46 03:30 WBC 8.4 RBC 3.86 L Hgb 11.3 L Hct 35.6 L MCV 92.2 MCH 29.3 MCHC 31.7 L RDW Std Deviation 47.4 H RDW Coeff of Anisa 14.0 Plt Count 379 MPV 9.0 Immature Gran % (Auto) 0.400 Neut % (Auto) 58.1 Lymph % (Auto) 34.1 [place] % (Auto) 5.5 Eos % (Auto) 1.4 Baso % (Auto) 0.5 Absolute Neuts (auto) 4.9 Absolute Lymphs (auto) 2.86 Nucleated RBC % 0 Sodium 139 Potassium 4.3 Chloride 106 Carbon Dioxide 28.0 Anion Gap 5 BUN 13 Creatinine 0.93 Estim Creat Clear Calc 62.41 Est GFR (MDRD) Af Amer 79 Est GFR (MDRD) Non-Af 66 BUN/Creatinine Ratio 14.0 Glucose 83 Calcium 9.2 Troponin I High Sens 18 21 Radiography Diagnostic Testing: Clinical Impression(s) from Imaging Studies Chest X-Ray 01/20/24 01:18 IMPRESSION: No radiographic evidence of acute cardiopulmonary disease. Electronically Signed: Edward Rush MD at 2:09 EDT , Discharge Plan Triage Chief Complaint: Chest Pain ED Provider: Ellis Peterson Dx/Rx/DC Orders Clinical Impression: Chronic anticoagulation, Chest pain Instructions: ED Chest Pain, Uncertain Cause Prescriptions: No Action levothyroxine 175 mcg capsule 175 mcg PO DAILY pantoprazole 40 mg tablet,delayed release (DR/EC) 40 mg PO DAILY ranolazine 500 mg tablet extended release 12 hr 500 mg PO BID Qty: 60 11RF midodrine 10 mg tablet 10 mg PO BID rizatriptan 10 tablet 10 mg PO PRN Patient Comments: metoprolol succinate 25 mg Tablet Extended Release 24 Hr 25 mg PO DAILY Qty: 30 2RF atorvastatin 40 mg tablet 40 mg PO QHS Qty: 30 2RF quetiapine 25 mg tablet 37.5 mg PO QHS lorazepam 0.5 mg tablet 0.5 mg PO Q12H fenofibrate 50 mg Capsule 50 mg PO QHS acetaminophen 325 mg Tablet 650 mg PO Q6H PRN PRN (Reason: Pain 1-10 Or Fever >100.7) Qty: 0 0RF melatonin 3 mg Tablet 3 mg PO QHS PRN PRN (Reason: Insomnia) Qty: 0 0RF potassium chloride 20 mEq Tablet,Er Particles/Crystals 20 meq PO 1XD Qty: 0 0RF insulin glargine-yfgn 100 unit/mL (3 mL) Insulin Pen 35 unit subcut QHS Qty: 0 0RF insulin glargine-yfgn 100 unit/mL (3 mL) Insulin Pen 35 unit subcut BREAKFAST Qty: 0 0RF insulin lispro [Humalog KwikPen Insulin] 100 unit/mL Insulin Pen 20 unit subcut TIDAC Qty: 0 0RF Eliquis 5 mg Tablet 10 mg PO BID Qty: 0 0RF oxycodone 5 mg Tablet 5 mg PO Q4H PRN PRN (Reason: Pain Score 4-10) 1 Days Qty: 6 0RF sennosides-docusate sodium [Stool Softener-Stimulant Laxat] 8.6-50 mg Tablet 2 tab PO BID PRN PRN (Reason: Constipation) Qty: 0 0RF apixaban 5 mg tablet 5 mg PO BID Qty: 10 0RF Rx Instructions: Start the 5 mg twice daily dosing on 01/09/2024 after completion of the 10 mg twice daily course Primary Care Provider: Jarred Lopez Referrals: Jarred Lopez MD [Primary Care Provider] - 3-5 Days if not improving Disposition Disposition: Snf Facility Discharge Location: [facility]
[2024-01-20 01:30] LABS: Absolute Lymphocyte Count 2.86 X10^3/uL (0.83-4.51); Absolute Neutrophil Count 4.9 X10^3/uL (2.0-7.7); Basophil# 0.04 X10^3/uL; Basophil% 0.5 % (0-1); Eosinophil# 0.12 X10^3/uL; Eosinophils% 1.4 % (0-5); Hematocrit 35.6 % (37-47); Hemoglobin 11.3 g/dL (12.0-15.0); Lymphocyte # 2.86 X10^3/ul (0.83-4.51); Lymphocyte % 34.1 % (19-41); Mean Corp Hgb Conc 31.7 g/dL (32-36); Mean Corpuscular Hgb 29.3 pg (27.0-32.0); Mean Corpuscular Volume 92.2 fL (81-99); Monocyte# 0.46 X10^3/uL; Monocyte% 5.5 % (0-10); NRBC Flagged by Analyzer 0 % (0-5); Neutrophil # 4.87 X10^3/uL (2.7-7.7); Neutrophil % 58.1 % (47-70); Platelet Count 379 K/mm3 (150-450); RBC Distribution Width SD 47.4 fl (35.1-43.9); Red Blood Count 3.86 M/mm3 (4.2-5.4); White Blood Count 8.4 K/mm3 (4.4-11.0)
[2024-01-20 01:53] LABS: Anion Gap 5 (5-15); BUN 13 mg/dL (7-18); Calcium,Total 9.2 mg/dL (8.5-10.1); Chloride 106 mmol/L (98-107); Creatinine, Serum 0.93 mg/dL (0.55-1.02); EST Glomerular Filtration Rate 66 mL/min (>60); Est Glom Filt Rate - Afr Amer 79 mL/min (>60); Estimated Creatinine Clearance 62.41 ml/min; Glucose 83 mg/dL (74-106); Potassium 4.3 mmol/L (3.5-5.1); Sodium Level 139 mmol/L (136-145); Troponin-I HS (w/2H Reflex) 18 pg/mL (3.0-54.0)
[2024-01-20 02:01] VITALS: BP 127/64; PULSE 78; RESP 12; O2SAT 95
[2024-01-20 03:00] VITALS: BP 130/61; PULSE 76; RESP 17; O2SAT 98
[2024-01-20] MEDS: oxyCODONE 5 MG Tablet PO (03:05)
[2024-01-20] MEDS: Ondansetron ODT 4 MG Tablet PO (03:05)
[2024-01-20 03:27] LABS: Reflex Troponin-HS? (from REC) Y
[2024-01-20 04:00] VITALS: BP 130/59; PULSE 75; RESP 14; O2SAT 95
[2024-01-20 04:11] LABS: Troponin-I HS 21 pg/mL (3.0-54.0)
[2024-01-20 05:00] VITALS: BP 115/52; PULSE 80; RESP 12; O2SAT 95
--- NOTE | 2024-01-20 05:26 | ED.RN ---
Report called to Dany Saldana at [phone], given to Kenzie WASHBURN. Questions/concerns answered
[2024-01-20 05:27] VITALS: BP 127/58; PULSE 76; RESP 13; TEMP 37; O2SAT 94
== END 2024-01-20 05:57 | disposition skilled nursing facility (03) ==
PROVIDERS: Emergency Provider Emergency Medicine; PCP Family Medicine; Visit Provider Emergency Medicine
DX: R07.9 Chest pain, unspecified (principal); E11.22 Type 2 diabetes mellitus with diabetic chronic kidney disease; N18.30 Chronic kidney disease, stage 3 unspecified; Z79.01 Long term (current) use of anticoagulants; Z87.891 Personal history of nicotine dependence; E78.5 Hyperlipidemia, unspecified; I12.9 Hypertensive chronic kidney disease with stage 1 through stage 4 chronic kidney disease, or unspecified chronic kidney disease; I25.10 Atherosclerotic heart disease of native coronary artery without angina pectoris; Z90.49 Acquired absence of other specified parts of digestive tract; Z90.710 Acquired absence of both cervix and uterus; E03.9 Hypothyroidism, unspecified; Z86.711 Personal history of pulmonary embolism
CPT/HCPCS: 71045; 80048; 84484; 85025; 93005; 99283; A4216

== ENCOUNTER → 2024-02-02 | Outpatient (REF) | payer MEDICARE, MEDICAID, SELFPAY ==
[2024-02-02 06:44] LABS: Absolute Lymphocyte Count 2.22 X10^3/uL (0.83-4.51); Absolute Neutrophil Count 2.4 X10^3/uL (2.0-7.7); Basophil# 0.03 X10^3/uL; Basophil% 0.6 % (0-1); Eosinophil# 0.06 X10^3/uL; Eosinophils% 1.2 % (0-5); Hematocrit 34.3 % (37-47); Lymphocyte # 2.22 X10^3/ul (0.83-4.51); Lymphocyte % 43.9 % (19-41); Mean Corp Hgb Conc 32.1 g/dL (32-36); Mean Corpuscular Hgb 28.9 pg (27.0-32.0); Mean Platelet Vol. 9.4 fl (6.2-12.0); Monocyte# 0.37 X10^3/uL; Monocyte% 7.3 % (0-10); NRBC Flagged by Analyzer 0 % (0-5); Neutrophil # 2.36 X10^3/uL (2.7-7.7); Neutrophil % 46.6 % (47-70); Platelet Count 279 K/mm3 (150-450); RBC Distribution Width CV 13.8 % (11.6-14.6); RBC Distribution Width SD 45.3 fl (35.1-43.9); Red Blood Count 3.81 M/mm3 (4.2-5.4); White Blood Count 5.1 K/mm3 (4.4-11.0)
[2024-02-02 07:22] LABS: ALB/GLOB Ratio 0.8 RATIO (0.9-2.4); AST(SGOT) 42 U/L (15-37); Alanine Aminotransfer ALT/SGPT 44 U/L (13-56); Albumin, Serum 2.8 g/dL (3.2-5.0); Alkaline Phosphatase 44 U/L (45-117); Anion Gap 5 (5-15); BUN 16 mg/dL (7-18); Calcium,Total 8.7 mg/dL (8.5-10.1); Chloride 107 mmol/L (98-107); Creatinine, Serum 0.94 mg/dL (0.55-1.02); EST Glomerular Filtration Rate 64 mL/min (>60); Est Glom Filt Rate - Afr Amer 78 mL/min (>60); Globulin 3.5 g/dL (2.2-4.2); Glucose 95 mg/dL (74-106); Potassium 3.9 mmol/L (3.5-5.1); Protein, Total 6.3 g/dL (6.4-8.2); Sodium Level 138 mmol/L (136-145)
== END ==
LOC: OLS.WHLEAS 04:00
PROVIDERS: PCP Family Medicine; Referring Provider Internal Medicine; Visit Provider Internal Medicine
DX: R11.0 Nausea (principal); I26.94 Multiple subsegmental thrombotic pulmonary emboli without acute cor pulmonale
CPT/HCPCS: 36415; 80053; 85025

== ENCOUNTER → 2024-02-04 | Outpatient (REF) | payer MEDICARE, MEDICAID, SELFPAY ==
[2024-02-04 08:56] LABS: Absolute Lymphocyte Count 3.24 X10^3/uL (0.83-4.51); Basophil# 0.03 X10^3/uL; Basophil% 0.5 % (0-1); Eosinophil# 0.03 X10^3/uL; Eosinophils% 0.5 % (0-5); Hematocrit 37.2 % (37-47); Hemoglobin 11.8 g/dL (12.0-15.0); Lymphocyte # 3.24 X10^3/ul (0.83-4.51); Lymphocyte % 57.7 % (19-41); Mean Corp Hgb Conc 31.7 g/dL (32-36); Mean Corpuscular Hgb 28.4 pg (27.0-32.0); Mean Corpuscular Volume 89.6 fL (81-99); Mean Platelet Vol. 9.3 fl (6.2-12.0); Monocyte# 0.31 X10^3/uL; Monocyte% 5.5 % (0-10); NRBC Flagged by Analyzer 0 % (0-5); Neutrophil % 35.6 % (47-70); POSITIVE MORPHOLOGY YES; Platelet Count 317 K/mm3 (150-450); RBC Distribution Width CV 13.7 % (11.6-14.6); Red Blood Count 4.15 M/mm3 (4.2-5.4); White Blood Count 5.6 K/mm3 (4.4-11.0)
[2024-02-04 09:02] LABS: Differential Indicated SCAN CRITERIA MET
[2024-02-04 09:36] LABS: Anion Gap 5 (5-15); BUN 17 mg/dL (7-18); BUN/Creat Ratio 15.3 RATIO (10-20); Chloride 103 mmol/L (98-107); Creatinine, Serum 1.11 mg/dL (0.55-1.02); EST Glomerular Filtration Rate 53 mL/min (>60); Est Glom Filt Rate - Afr Amer 64 mL/min (>60); Glucose 81 mg/dL (74-106); Potassium 4.2 mmol/L (3.5-5.1); Sodium Level 135 mmol/L (136-145)
[2024-02-04 10:38] LABS: Differential Comment SCANNED; Reactive Lymphocyte 1+
== END ==
LOC: OLS.WHLEAS 05:00
PROVIDERS: PCP Family Medicine; Visit Provider Internal Medicine
DX: E11.22 Type 2 diabetes mellitus with diabetic chronic kidney disease (principal); E11.65 Type 2 diabetes mellitus with hyperglycemia; N18.9 Chronic kidney disease, unspecified
CPT/HCPCS: 36415; 80048; 85025

== ENCOUNTER → 2024-02-11 | Outpatient (REF) | payer MEDICARE, MEDICAID, SELFPAY ==
[2024-02-11 08:11] LABS: Absolute Lymphocyte Count 2.53 X10^3/uL (0.83-4.51); Absolute Neutrophil Count 3.9 X10^3/uL (2.0-7.7); Basophil# 0.05 X10^3/uL; Basophil% 0.7 % (0-1); Eosinophil# 0.08 X10^3/uL; Eosinophils% 1.1 % (0-5); Hematocrit 35.4 % (37-47); Hemoglobin 11.3 g/dL (12.0-15.0); Lymphocyte # 2.53 X10^3/ul (0.83-4.51); Lymphocyte % 35.3 % (19-41); Mean Corp Hgb Conc 31.9 g/dL (32-36); Mean Corpuscular Hgb 28.4 pg (27.0-32.0); Mean Corpuscular Volume 88.9 fL (81-99); Mean Platelet Vol. 9.2 fl (6.2-12.0); Monocyte# 0.52 X10^3/uL; Monocyte% 7.3 % (0-10); NRBC Flagged by Analyzer 0 % (0-5); Neutrophil # 3.93 X10^3/uL (2.7-7.7); Neutrophil % 54.8 % (47-70); Platelet Count 430 K/mm3 (150-450); RBC Distribution Width CV 13.3 % (11.6-14.6); RBC Distribution Width SD 43.8 fl (35.1-43.9); Red Blood Count 3.98 M/mm3 (4.2-5.4); White Blood Count 7.2 K/mm3 (4.4-11.0)
[2024-02-11 08:30] LABS: Anion Gap 7 (5-15); BUN 19 mg/dL (7-18); BUN/Creat Ratio 18.8 RATIO (10-20); Calcium,Total 8.5 mg/dL (8.5-10.1); Chloride 103 mmol/L (98-107); Creatinine, Serum 1.01 mg/dL (0.55-1.02); EST Glomerular Filtration Rate 59 mL/min (>60); Est Glom Filt Rate - Afr Amer 72 mL/min (>60); Glucose 218 mg/dL (74-106); Potassium 3.9 mmol/L (3.5-5.1); Sodium Level 136 mmol/L (136-145)
== END ==
LOC: OLS.WHLEAS 04:00
PROVIDERS: PCP Family Medicine; Referring Provider Internal Medicine; Visit Provider Internal Medicine
DX: E11.22 Type 2 diabetes mellitus with diabetic chronic kidney disease (principal); E11.65 Type 2 diabetes mellitus with hyperglycemia; N18.9 Chronic kidney disease, unspecified
CPT/HCPCS: 36415; 80048; 85025

== ENCOUNTER → 2024-02-18 | Outpatient (REF) | payer MEDICARE, MEDICAID, SELFPAY ==
[2024-02-18 07:32] LABS: Absolute Neutrophil Count 3.1 X10^3/uL (2.0-7.7); Basophil# 0.04 X10^3/uL; Basophil% 0.6 % (0-1); Eosinophil# 0.08 X10^3/uL; Eosinophils% 1.3 % (0-5); Hematocrit 34.2 % (37-47); Lymphocyte % 42.6 % (19-41); Mean Corp Hgb Conc 32.2 g/dL (32-36); Mean Corpuscular Hgb 28.6 pg (27.0-32.0); Mean Corpuscular Volume 89.1 fL (81-99); Mean Platelet Vol. 9.3 fl (6.2-12.0); Monocyte# 0.38 X10^3/uL; NRBC Flagged by Analyzer 0 % (0-5); Neutrophil % 48.9 % (47-70); Platelet Count 337 K/mm3 (150-450); RBC Distribution Width CV 13.2 % (11.6-14.6); RBC Distribution Width SD 43.1 fl (35.1-43.9); Red Blood Count 3.84 M/mm3 (4.2-5.4); White Blood Count 6.3 K/mm3 (4.4-11.0)
[2024-02-18 07:57] LABS: Anion Gap 6 (5-15); BUN 19 mg/dL (7-18); BUN/Creat Ratio 14.8 RATIO (10-20); Calcium,Total 8.8 mg/dL (8.5-10.1); Chloride 107 mmol/L (98-107); Creatinine, Serum 1.28 mg/dL (0.55-1.02); EST Glomerular Filtration Rate 45 mL/min (>60); Est Glom Filt Rate - Afr Amer 55 mL/min (>60); Glucose 180 mg/dL (74-106); Potassium 4.2 mmol/L (3.5-5.1); Sodium Level 139 mmol/L (136-145)
== END ==
LOC: OLS.WHLEAS 05:00
PROVIDERS: PCP Family Medicine; Visit Provider Internal Medicine
DX: E11.22 Type 2 diabetes mellitus with diabetic chronic kidney disease (principal); E11.65 Type 2 diabetes mellitus with hyperglycemia; N18.9 Chronic kidney disease, unspecified
CPT/HCPCS: 36415; 80048; 85025

== ENCOUNTER → 2024-02-25 | Outpatient (REF) | payer MEDICARE, MEDICAID, SELFPAY ==
[2024-02-25 07:43] LABS: Absolute Lymphocyte Count 2.72 X10^3/uL (0.83-4.51); Absolute Neutrophil Count 3.8 X10^3/uL (2.0-7.7); Basophil# 0.03 X10^3/uL; Basophil% 0.4 % (0-1); Eosinophil# 0.13 X10^3/uL; Eosinophils% 1.8 % (0-5); Hematocrit 34.1 % (37-47); Hemoglobin 10.6 g/dL (12.0-15.0); Lymphocyte # 2.72 X10^3/ul (0.83-4.51); Lymphocyte % 38.5 % (19-41); Mean Corp Hgb Conc 31.1 g/dL (32-36); Mean Corpuscular Hgb 27.7 pg (27.0-32.0); Mean Platelet Vol. 9.2 fl (6.2-12.0); Monocyte# 0.38 X10^3/uL; Monocyte% 5.4 % (0-10); NRBC Flagged by Analyzer 0 % (0-5); Neutrophil # 3.77 X10^3/uL (2.7-7.7); Neutrophil % 53.5 % (47-70); Platelet Count 335 K/mm3 (150-450); RBC Distribution Width CV 13.6 % (11.6-14.6); RBC Distribution Width SD 43.9 fl (35.1-43.9); Red Blood Count 3.83 M/mm3 (4.2-5.4); White Blood Count 7.1 K/mm3 (4.4-11.0)
[2024-02-25 09:05] LABS: AST(SGOT) 15 U/L (15-37); Alanine Aminotransfer ALT/SGPT 20 U/L (13-56); Albumin, Serum 2.7 g/dL (3.2-5.0); Alkaline Phosphatase 45 U/L (45-117); Anion Gap 8 (5-15); BUN 15 mg/dL (7-18); BUN/Creat Ratio 12.8 RATIO (10-20); Bilirubin, Direct 0.11 mg/dL (0.00-0.30); Calcium,Total 8.9 mg/dL (8.5-10.1); Chloride 105 mmol/L (98-107); Creatinine, Serum 1.17 mg/dL (0.55-1.02); EST Glomerular Filtration Rate 50 mL/min (>60); Est Glom Filt Rate - Afr Amer 61 mL/min (>60); Globulin 3.8 g/dL (2.2-4.2); Glucose 222 mg/dL (74-106); Protein, Total 6.5 g/dL (6.4-8.2); Sodium Level 138 mmol/L (136-145); Thyroid Stim Hormone (TSH) 0.07 uIU/mL (0.358-3.74)
[2024-02-25 09:58] LABS: Hemoglobin A1c 6.8 % (3.8-5.6)
== END ==
LOC: OLS.WHLEAS 05:00
PROVIDERS: PCP Family Medicine; Visit Provider Internal Medicine
DX: E11.65 Type 2 diabetes mellitus with hyperglycemia (principal); N17.9 Acute kidney failure, unspecified; N30.00 Acute cystitis without hematuria; E11.22 Type 2 diabetes mellitus with diabetic chronic kidney disease; N18.9 Chronic kidney disease, unspecified
CPT/HCPCS: 36415; 80048; 80076; 83036; 84443; 85025

== ENCOUNTER → 2024-03-03 | Outpatient (REF) | payer MEDICARE, MEDICAID, SELFPAY ==
[2024-03-03 07:54] LABS: Absolute Lymphocyte Count 2.71 X10^3/uL (0.83-4.51); Absolute Neutrophil Count 4.1 X10^3/uL (2.0-7.7); Basophil# 0.04 X10^3/uL; Basophil% 0.5 % (0-1); Eosinophil# 0.19 X10^3/uL; Eosinophils% 2.5 % (0-5); Hematocrit 34.4 % (37-47); Hemoglobin 10.5 g/dL (12.0-15.0); Lymphocyte # 2.71 X10^3/ul (0.83-4.51); Mean Corp Hgb Conc 30.5 g/dL (32-36); Mean Corpuscular Hgb 27.7 pg (27.0-32.0); Mean Corpuscular Volume 90.8 fL (81-99); Mean Platelet Vol. 9.5 fl (6.2-12.0); Monocyte# 0.45 X10^3/uL; NRBC Flagged by Analyzer 0 % (0-5); Neutrophil # 4.11 X10^3/uL (2.7-7.7); Neutrophil % 54.6 % (47-70); Platelet Count 365 K/mm3 (150-450); RBC Distribution Width CV 13.4 % (11.6-14.6); RBC Distribution Width SD 45.1 fl (35.1-43.9); Red Blood Count 3.79 M/mm3 (4.2-5.4); White Blood Count 7.5 K/mm3 (4.4-11.0)
[2024-03-03 08:16] LABS: Anion Gap 5 (5-15); BUN 15 mg/dL (7-18); BUN/Creat Ratio 17.1 RATIO (10-20); Calcium,Total 9.1 mg/dL (8.5-10.1); Chloride 106 mmol/L (98-107); Creatinine, Serum 0.88 mg/dL (0.55-1.02); EST Glomerular Filtration Rate 70 mL/min (>60); Est Glom Filt Rate - Afr Amer 84 mL/min (>60); Glucose 170 mg/dL (74-106); Potassium 3.9 mmol/L (3.5-5.1); Sodium Level 139 mmol/L (136-145)
== END ==
LOC: OLS.WHLEAS 05:00
PROVIDERS: PCP Family Medicine; Visit Provider Internal Medicine
DX: E11.22 Type 2 diabetes mellitus with diabetic chronic kidney disease (principal); E11.65 Type 2 diabetes mellitus with hyperglycemia; N18.9 Chronic kidney disease, unspecified
CPT/HCPCS: 36415; 80048; 85025

== ENCOUNTER → 2024-03-10 | Outpatient (REF) | payer MEDICARE, MEDICAID, SELFPAY ==
[2024-03-10 08:34] LABS: Anion Gap 6 (5-15); BUN 25 mg/dL (7-18); BUN/Creat Ratio 23.1 RATIO (10-20); Calcium,Total 8.8 mg/dL (8.5-10.1); Chloride 104 mmol/L (98-107); Creatinine, Serum 1.08 mg/dL (0.55-1.02); EST Glomerular Filtration Rate 55 mL/min (>60); Est Glom Filt Rate - Afr Amer 66 mL/min (>60); Glucose 169 mg/dL (74-106); Potassium 3.8 mmol/L (3.5-5.1); Sodium Level 137 mmol/L (136-145)
[2024-03-10 08:36] LABS: Absolute Lymphocyte Count 2.75 X10^3/uL (0.83-4.51); Absolute Neutrophil Count 4.4 X10^3/uL (2.0-7.7); Basophil# 0.03 X10^3/uL; Basophil% 0.4 % (0-1); Eosinophils% 2.5 % (0-5); Hematocrit 31.7 % (37-47); Hemoglobin 10.1 g/dL (12.0-15.0); Lymphocyte # 2.75 X10^3/ul (0.83-4.51); Lymphocyte % 34.7 % (19-41); Mean Corp Hgb Conc 31.9 g/dL (32-36); Mean Corpuscular Hgb 28.2 pg (27.0-32.0); Mean Corpuscular Volume 88.5 fL (81-99); Mean Platelet Vol. 9.5 fl (6.2-12.0); Monocyte# 0.55 X10^3/uL; Monocyte% 6.9 % (0-10); NRBC Flagged by Analyzer 0 % (0-5); Neutrophil # 4.36 X10^3/uL (2.7-7.7); Neutrophil % 55.1 % (47-70); Platelet Count 340 K/mm3 (150-450); RBC Distribution Width CV 13.5 % (11.6-14.6); RBC Distribution Width SD 44.2 fl (35.1-43.9); Red Blood Count 3.58 M/mm3 (4.2-5.4); White Blood Count 7.9 K/mm3 (4.4-11.0)
== END ==
LOC: OLS.WHLEAS 05:00
PROVIDERS: PCP Family Medicine; Visit Provider Internal Medicine
DX: E11.22 Type 2 diabetes mellitus with diabetic chronic kidney disease (principal); E11.65 Type 2 diabetes mellitus with hyperglycemia; N17.9 Acute kidney failure, unspecified; N30.00 Acute cystitis without hematuria
CPT/HCPCS: 36415; 80048; 85025

== ENCOUNTER → 2024-03-17 | Outpatient (REF) | payer MEDICARE, MEDICAID, SELFPAY ==
[2024-03-17 09:19] LABS: Absolute Lymphocyte Count 2.65 X10^3/uL (0.83-4.51); Absolute Neutrophil Count 3.2 X10^3/uL (2.0-7.7); Basophil# 0.06 X10^3/uL; Basophil% 0.9 % (0-1); Eosinophil# 0.14 X10^3/uL; Eosinophils% 2.1 % (0-5); Hematocrit 34.6 % (37-47); Hemoglobin 10.8 g/dL (12.0-15.0); Lymphocyte # 2.65 X10^3/ul (0.83-4.51); Lymphocyte % 40.5 % (19-41); Mean Corp Hgb Conc 31.2 g/dL (32-36); Mean Corpuscular Hgb 27.5 pg (27.0-32.0); Mean Platelet Vol. 9.1 fl (6.2-12.0); Monocyte# 0.46 X10^3/uL; NRBC Flagged by Analyzer 0 % (0-5); Neutrophil # 3.21 X10^3/uL (2.7-7.7); Neutrophil % 49.2 % (47-70); Platelet Count 422 K/mm3 (150-450); RBC Distribution Width CV 13.6 % (11.6-14.6); RBC Distribution Width SD 43.7 fl (35.1-43.9); Red Blood Count 3.93 M/mm3 (4.2-5.4); White Blood Count 6.5 K/mm3 (4.4-11.0)
[2024-03-17 09:36] LABS: Anion Gap 7 (5-15); BUN 21 mg/dL (7-18); BUN/Creat Ratio 19.3 RATIO (10-20); Chloride 106 mmol/L (98-107); Creatinine, Serum 1.09 mg/dL (0.55-1.02); EST Glomerular Filtration Rate 54 mL/min (>60); Est Glom Filt Rate - Afr Amer 66 mL/min (>60); Glucose 87 mg/dL (74-106); Potassium 3.9 mmol/L (3.5-5.1); Sodium Level 137 mmol/L (136-145)
== END ==
LOC: OLS.WHLEAS 05:00
PROVIDERS: PCP Family Medicine; Visit Provider Internal Medicine
DX: E11.22 Type 2 diabetes mellitus with diabetic chronic kidney disease (principal); N18.9 Chronic kidney disease, unspecified; E11.65 Type 2 diabetes mellitus with hyperglycemia
CPT/HCPCS: 36415; 80048; 85025

== ENCOUNTER 2024-03-24 13:26 | Emergency (ER) | payer MEDICARE, MEDICAID, SELFPAY ==
[2024-03-24] VITALS (11 sets, daily range): BP systolic 119–160; BP diastolic 47–74; PULSE 78–89; RESP 12–24; TEMP 36.1–36.8; O2SAT 95–100; BMI 34.9
[2024-03-24] MEDS: Morphine 4 MG/ML Syringe IV (14:03)
[2024-03-24] MEDS: Ondansetron 4 MG/2 ML Vial IV (14:03)
[2024-03-24 14:14] LABS: Absolute Lymphocyte Count 2.55 X10^3/uL (0.83-4.51); Absolute Neutrophil Count 8.4 X10^3/uL (2.0-7.7); Basophil# 0.03 X10^3/uL; Basophil% 0.3 % (0-1); Hemoglobin 12.2 g/dL (12.0-15.0); Lymphocyte # 2.55 X10^3/ul (0.83-4.51); Lymphocyte % 22.2 % (19-41); Mean Corp Hgb Conc 32.1 g/dL (32-36); Mean Corpuscular Hgb 27.7 pg (27.0-32.0); Mean Corpuscular Volume 86.2 fL (81-99); Mean Platelet Vol. 9.3 fl (6.2-12.0); Monocyte# 0.46 X10^3/uL; NRBC Flagged by Analyzer 0 % (0-5); Neutrophil # 8.44 X10^3/uL (2.7-7.7); Neutrophil % 73.2 % (47-70); Platelet Count 484 K/mm3 (150-450); RBC Distribution Width CV 13.3 % (11.6-14.6); RBC Distribution Width SD 42.2 fl (35.1-43.9); Red Blood Count 4.41 M/mm3 (4.2-5.4); White Blood Count 11.5 K/mm3 (4.4-11.0)
--- NOTE | 2024-03-24 14:20 | CT_ITS ---
STUDY: CT BRAIN WITHOUT CONTRAST REASON FOR EXAM: Female, 58 years old. Head trauma RADIATION DOSAGE (If Supplied By Facility): CTDIvol = ( 44.99 ) mGy, DLP = ( 779.24 ) mGycm TECHNIQUE: Transaxial CT imaging of the brain was performed without administration of intravenous contrast material. Individualized dose optimization techniques were used for this CT. COMPARISON: Comparison is made with prior study dated July 19, 2018. FINDINGS: Normal soft tissue structures. Normal calvarium. There is mild cerebral atrophy with widening of the extra-axial spaces and ventricular dilatation. Normal white matter tracts of the cerebral hemispheres. There are small punctate calcifications of the basal ganglia which are seen in the aging brain as a normal variant. Normal brainstem. Normal cerebellum. There is no intracranial hemorrhage. There are no findings of an acute ischemic infarction. Normal visualized paranasal sinuses. CT/Brain/Head without Contrast IMPRESSION: Chronic involutional changes of the brain. Electronically Signed: Khoi Al MD at 14:47 EDT ,
--- NOTE | 2024-03-24 14:20 | CT_ITS ---
STUDY: CT CERVICAL SPINE WITHOUT CONTRAST REASON FOR EXAM: Female, 58 years old. Injury/Pain RADIATION DOSAGE (If Supplied By Facility): CTDIvol = ( 15.95 ) mGy, DLP = ( 559.27 ) mGycm TECHNIQUE: High resolution transaxial imaging was performed without contrast material. Sagittal and coronal images were reconstructed. Individualized dose optimization techniques were used for this CT. COMPARISON: None FINDINGS: Normal craniovertebral junction. Normal anterior atlantoaxial articulation. Normal odontoid process. There is straightening of the normal cervical lordosis. Normal vertebral bodies and posterior osseous elements. C2-3: Normal endplates. Normal disc height and morphology. Normal central canal and intervertebral neuroforamina. C3-4: Normal endplates. Normal disc height and morphology. Normal central canal and intervertebral neuroforamina. C4-5: Normal endplates. Normal disc height and morphology. Normal central canal and intervertebral neuroforamina. C5-6: Marked degree of disc space narrowing with spondylosis. Uncovertebral arthrosis. No significant neural foraminal stenosis is seen. C6-7: Marked degree of the disc space narrowing. Spondylosis. No significant stenosis is seen. C7-T1: Normal endplates. Normal disc height and morphology. Normal central canal and intervertebral neuroforamina. Atherosclerotic plaque formation of the carotid bifurcations bilaterally. CT/Spine Cervical without Contras IMPRESSION: Multilevel degenerative changes, as described above. Electronically Signed: Khoi Al MD at 14:54 EDT ,
--- NOTE | 2024-03-24 14:20 | CT_ITS ---
STUDY: CT LUMBAR SPINE WITHOUT CONTRAST REASON FOR EXAM: Female, 58 years old. Pain, left leg weakness, trauma RADIATION DOSAGE (If Supplied By Facility): CTDIvol = ( 26.77 ) mGy, DLP = ( 576.63 ) mGycm TECHNIQUE: The patient was scanned in a multi detector CT scanner. High resolution transaxial imaging was performed. Images were obtained from L1 to S1 vertebral level. Sagittal and coronal images were reconstructed. Individualized dose optimization techniques were used for this CT. COMPARISON: None FINDINGS: Normal lumbar lordosis. There is no substantial scoliosis. Normal vertebrae of the lumbar spine. L1-2: Normal endplates. Normal disc height and morphology. Normal bilateral facet joints. Normal central canal and bilateral lateral recesses. Normal bilateral intervertebral neural foramina. L2-3: Normal endplates. Normal disc height and morphology. Normal bilateral facet joints. Normal central canal and bilateral lateral recesses. Normal bilateral intervertebral neural foramina. L3-4: Normal endplates. Normal disc height and morphology. Normal bilateral facet joints. Normal central canal and bilateral lateral recesses. Normal bilateral intervertebral neural foramina. L4-5: Mild to moderate degree of disc space narrowing with a central posterior spondylosis and diffuse disc bulge causing neural foraminal stenosis bilaterally slightly worse on the left side. Facet joint osteoarthritis. L5-S1: Facet joint osteoarthritis and hypertrophy. Atherosclerotic calcification of the abdominal aorta and bilateral common iliac arteries. CT/Spine Lumbar without Contrast IMPRESSION: Posterior spondylosis at the L4-L5 level as well as diffuse posterior disc bulge with narrowing of both intervertebral foramen more prominent on the left side. Facet joint osteoarthritis. Electronically Signed: Khoi Al MD at 15:06 EDT ,
[2024-03-24 14:22] LABS: ALB/GLOB Ratio 0.7 RATIO (0.9-2.4); AST(SGOT) 20 U/L (15-37); Alanine Aminotransfer ALT/SGPT 30 U/L (13-56); Albumin, Serum 3.4 g/dL (3.2-5.0); Alkaline Phosphatase 54 U/L (45-117); Anion Gap 6 (5-15); BUN 24 mg/dL (7-18); BUN/Creat Ratio 20.7 RATIO (10-20); Calcium,Total 9.8 mg/dL (8.5-10.1); Chloride 103 mmol/L (98-107); Creatinine, Serum 1.16 mg/dL (0.55-1.02); EST Glomerular Filtration Rate 51 mL/min (>60); Est Glom Filt Rate - Afr Amer 61 mL/min (>60); Estimated Creatinine Clearance 48.61 ml/min; Globulin 4.6 g/dL (2.2-4.2); Glucose 199 mg/dL (74-106); Lipase 38 U/L (13-75); Potassium 4.7 mmol/L (3.5-5.1); Sodium Level 134 mmol/L (136-145)
--- NOTE | 2024-03-24 14:48 | EX.ED.DYSGE1 ---
HPI History of Present Illness Chief Complaint: Head Injury Informant: patient Narrative Narrative: Patient is a 4-year-old female presenting from longterm facility for evaluation of headache and vomiting the setting of a head injury. Patient was leaving pain management yesterday when she was going to get into the car she states her left leg gave out and she fell backwards. She hit her head on the cement. She denies any associated loss of conscious. She notes since then she has had a severe headache in the back of her head, dizziness, blurry vision and nausea and vomiting. She is on Eliquis for history of PE. Patient also notes that since November she has had numbness and weakness of her left leg however it has been worse since the fall. Patient denies any associate chest pain or difficulty breathing. States that she is on a patch at baseline for her pain but is having significant headache right now. I was sent in for evaluation of her symptoms. Patient has no other complaints at this time. [facility] Medical History Anxiety and depression Diabetes mellitus, type 2 Pulmonary emboli Parathyroid disease History of left heart catheterization (LHC) (~05/21/22) CKD (chronic kidney disease) stage 3, GFR 30-59 ml/min Essential hypertension Orthostatic hypotension Hypothyroidism Chronic back pain Obesity (BMI 35.0-39.9 without comorbidity) Normochromic normocytic anemia Hyperlipidemia Former smoker Opiate abuse, continuous Intervertebral disc disorder with radiculopathy of lumbar region Carpal tunnel syndrome Kidney stones Thyroid disease Migraines Stomach ulcer HTN (hypertension) Home Medications ?Medication ?Instructions ?Recorded ?Last Taken ?Type rizatriptan 10 mg tablet 10 mg PO PRN Migraine Symptoms 12/27/17 01/01/24 History atorvastatin 40 mg tablet 40 mg PO QHS #30 tabs 05/21/22 12/31/23 Rx metoprolol succinate 25 mg 25 mg PO DAILY #30 tabs 05/21/22 01/01/24 Rx tablet,extended release 24 hr levothyroxine 175 mcg capsule 175 mcg PO DAILY 06/12/22 01/01/24 History pantoprazole 40 mg tablet,delayed 40 mg PO DAILY 06/12/22 01/01/24 History release ranolazine 500 mg tablet,extended 500 mg PO BID #60 tabs 06/12/22 01/01/24 Rx release,12 hr midodrine 10 mg tablet 10 mg PO BID 09/09/22 01/01/24 History fenofibrate 50 mg capsule 50 mg PO QHS 01/29/23 12/31/23 History lorazepam 0.5 mg tablet 0.5 mg PO Q12H anxeity 01/29/23 12/31/23 History quetiapine 25 mg tablet 37.5 mg PO QHS 01/29/23 11/15/23 History acetaminophen 325 mg tablet 650 mg (2 x 325 mg) PO Q6H PRN PRN 11/24/23 Unknown Rx Pain 1-10 Or Fever >100.7 #0 tabs melatonin 3 mg tablet 3 mg PO QHS PRN PRN Insomnia #0 11/24/23 12/31/23 Rx tabs potassium chloride 20 mEq 20 meq PO 1XD #0 tabs 11/24/23 01/01/24 Rx tablet,extended release(part/cryst) apixaban 5 mg tablet 5 mg PO BID #10 tabs 01/05/24 Unknown Rx apixaban 5 mg tablet (Eliquis) 10 mg (2 x 5 mg) PO BID #0 tabs 01/05/24 Unknown Rx insulin glargine-yfgn 100 unit/mL 35 unit (0.35 mL) subcut BREAKFAST 01/05/24 Unknown Rx (3 mL) subcutaneous pen #0 mL insulin glargine-yfgn 100 unit/mL 35 unit (0.35 mL) subcut QHS #0 mL 01/05/24 Unknown Rx (3 mL) subcutaneous pen insulin lispro 100 unit/mL 20 unit (0.2 mL) subcut TIDAC #0 mL 01/05/24 Unknown Rx subcutaneous pen (Humalog KwikPen (U-100) Insulin) oxycodone 5 mg tablet 5 mg PO Q4H PRN PRN Pain Score 01/05/24 Unknown Rx 4-10 1 day #6 tabs sennosides 8.6 mg-docusate sodium 2 tab PO BID PRN PRN Constipation 01/05/24 Unknown Rx 50 mg tablet (Stool #0 tabs Softener-Stimulant Laxative) ondansetron 4 mg disintegrating 4 mg PO Q6H PRN nausea and 03/24/24 Unknown Rx tablet vomiting #14 tabs Allergy/AdvReac Type Severity Reaction Status Date / Time celecoxib (From Celebrex) Allergy Itching Verified 03/24/24 13:28 ciprofloxacin (From Cipro) Allergy Swelling Verified 03/24/24 13:28 ciprofloxacin HCl (From Allergy Swelling Verified 03/24/24 13:28 Cipro) codeine Allergy Hives Verified 03/24/24 13:28 ibuprofen Allergy Hives Verified 03/24/24 13:28 naproxen Allergy Hives Verified 03/24/24 13:28 Penicillins Allergy Hives Verified 03/24/24 13:28 tramadol HCl (From Ultram) Allergy Hives Verified 03/24/24 13:28 ketorolac (From Toradol) AdvReac Swelling Verified 03/24/24 13:28 Family History Mother Cancer CVA (cerebral vascular accident) Hypertension Heart disease Myocardial infarction Diabetes Father Asthma Surgical History H/O: hysterectomy History of cholecystectomy Hx of section S/P trigger finger release Social History household members: other details: currently living in a NH for therapy for chronic back pain housing: [facility] Smoking Status: Former smoker Tobacco: How many years used: 46 how long ago did patient quit smoking: Quit 09/2021, smoked 1 ppd since teen until quit. alcohol intake: never substance use type: other details: History of chronic opiate use. Denies abuse. ROS ROS ED Constitutional Constitutional ED: Denies chills or fever(s) Eyes Eyes: Reports blurry vision Cardiovascular Cardiovascular: Denies chest pain Respiratory/Chest Respiratory/Chest: Denies cough Gastrointestinal Gastrointestinal: Reports nausea and vomiting; Denies abdominal pain Musculoskeletal Musculoskeletal: Reports back pain; Denies arthralgias or myalgias Integumentary Denies rash Neurologic Neurologic: Reports paresthesias and weakness Psychiatric Psychiatric: Reports anxiety Hematologic/Lymphatic Hematologic/Lymphatic: Reports easy bleeding and easy bruising EXAM Physical Exam Const Vital Signs: 03/24/24 13:28 03/24/24 13:36 03/24/24 14:38 Temperature 97 F L 97.4 F L Temperature Source Temporal Oral Pulse Rate 89 86 Respiratory Rate 19 H 15 Respiratory Effort Normal Non-Labored Blood Pressure 147/74 H 131/52 H Blood Pressure Mean 98 78 Pulse Ox 100 100 99 Oxygen Delivery Method Room Air Room Air Room Air 03/24/24 15:00 03/24/24 16:00 03/24/24 16:52 Temperature 98.2 F Temperature Source Pulse Rate 87 78 88 Respiratory Rate 16 16 13 Respiratory Effort Blood Pressure 119/47 L 138/59 H 148/60 H Blood Pressure Mean 71 85 89 Pulse Ox 96 98 98 Oxygen Delivery Method Room Air Room Air Positive well nourished and well developed General Appearance ED: well developed and NAD HEENT Reports moist mucous membranes Eyes PERRL and EOMs intact bilaterally Eyes Narrative: No visual field cut appreciated. No nystagmus appreciated. Neck supple Neck Narrative: Diffuse tenderness to the posterior neck on palpation General: tenderness Chest Wall inspection of chest normal Resp normal respiratory effort and clear to auscultation bilaterally Cardio regular rate and regular rhythm GI normal to inspection, nondistended, normoactive bowel sounds and non-tender Back/Spine Lumbar Spine / Lower Back: lumbar spinal tenderness Extremity Extremity Narrative: No rotational deformity of the extremities. No significant pain with logroll of the lower extremities. General Extremety ED: Negative for edema or tenderness General Extremity: Negative for edema Neuro oriented x3 Neuro Narrative: Patient has weakness of the left lower extremity compared to the right. She states has been going on since November. Reports numbness of the left lower leg below below the knee circumferentially. Equal recruit instructor strength bilaterally. On the left?4/5 strength with hip flexion, dorsiflexion and plantarflexion of the foot as well as dorsiflexion and plantarflexion of the great toe. These are 5/5 strength on the right. Psych mental status grossly normal Skin no rashes or lesions noted and no wounds MDM MDM MDM Narrative Medical decision making narrative: Admitted for blurry vision, headache and nausea vomiting in setting of a reported fall and head injury on anticoagulation. Workup including CT of the brain, cervical spine as well as labs are obtained. As patient is reporting increased weakness of her left lower extremity did obtain a CT of her lumbar spine as well. Patient is given a dose of morphine for pain control as well as Zofran in the emergency room. Patient lab work shows a very mild leukocytosis of 11.5 which is nonspecific however she has normal immature granulocytes so I doubt acute infection. CMP is normal including her creatinine of 1.16 which is at her baseline. Urinalysis is not consistent with infection. CT of the brain and cervical spine does not show any acute process. Lumbar spine CT does show posterior spondylosis of L4/L5 level as well as diffuse posterior disc bulge with narrowing of both intervertebral foramen more prominent on the left side. I do not think there is an acute traumatic process but I did contact pain management to let them know about her CT findings. I spoke with the nurse practitioner from pain management who tells me that she documented the patient had been complaining of worsening headache and nausea vomiting for the past 3 weeks not just associated with her fall yesterday. In addition she tells me that her fall was witnessed as it was when she was leaving pain management and reportedly patient was actually lowered to the ground and did not sustain any injuries and specifically did not hit her head. Patient will be discharged back to nursing facility. Discussed the CT findings and pain management will determine if she needs a spinal consults. They are aware. They also upped her pain medication yesterday which will be managed through pain management and at her nursing facility. Patient discharged back to nursing facility as I do not think she requires acute hospitalization based on her presentation today. She is already in longterm facility so I do not think she requires admission from a debility/pain control standpoint. Given that her numbness of her left lower extremity is circumferential below the level of knee I do not think it is associated with emergence nerve spinal nerve compression. And given that her symptoms have been going on for weeks and not just since yesterday her CT does not show any acute or subacute stroke and I think she does not need to be brought in for an MRI at this time. Lab Data Attestation: I reviewed the patient's lab results. Labs: Laboratory Results - last 24 hr 03/24/24 03/24/24 13:30 16:08 WBC 11.5 H RBC 4.41 Hgb 12.2 Hct 38.0 MCV 86.2 MCH 27.7 MCHC 32.1 RDW Std Deviation 42.2 RDW Coeff of Anisa 13.3 Plt Count 484 H MPV 9.3 Immature Gran % (Auto) 0.300 Neut % (Auto) 73.2 H Lymph % (Auto) 22.2 Walsh % (Auto) 4.0 Eos % (Auto) 0.0 Baso % (Auto) 0.3 Absolute Neuts (auto) 8.4 H Absolute Lymphs (auto) 2.55 Nucleated RBC % 0 Sodium 134 L Potassium 4.7 Chloride 103 Carbon Dioxide 25.0 Anion Gap 6 BUN 24 H Creatinine 1.16 H Estim Creat Clear Calc 48.61 Est GFR (MDRD) Af Amer 61 Est GFR (MDRD) Non-Af 51 L BUN/Creatinine Ratio 20.7 H Glucose 199 H Calcium 9.8 Total Bilirubin 0.30 AST 20 ALT 30 Alkaline Phosphatase 54 Total Protein 8.0 Albumin 3.4 Globulin 4.6 H Albumin/Globulin Ratio 0.7 L Lipase 38 Urine Color Yellow Urine Clarity Clear Urine pH 7.0 Ur Specific [place] 1.010 Urine Protein 15 H Urine Glucose (UA) Normal Urine Ketones Negative Urine Occult Blood Negative Urine Nitrite Negative Urine Bilirubin Negative Urine Urobilinogen Normal Ur Leukocyte Esterase Negative Radiography Diagnostic Testing: Clinical Impression(s) from Imaging Studies Brain CT 03/24/24 14:20 IMPRESSION: Chronic involutional changes of the brain. Electronically Signed: Khoi Al MD at 14:47 EDT , Cervical Spine CT 03/24/24 14:20 IMPRESSION: Multilevel degenerative changes, as described above. Electronically Signed: Khoi Al MD at 14:54 EDT , Lumbar Spine CT 03/24/24 14:20 IMPRESSION: Posterior spondylosis at the L4-L5 level as well as diffuse posterior disc bulge with narrowing of both intervertebral foramen more prominent on the left side. Facet joint osteoarthritis. Electronically Signed: Khoi Al MD at 15:06 EDT , Discharge Plan Triage Chief Complaint: Head Injury ED Provider: Damaris Saldana Dx/Rx/DC Orders Clinical Impression: Headache, Difficulty in walking, not elsewhere classified, Nausea & vomiting Instructions: ED Headache, Tension, ED Vomiting (Adult) Prescriptions: New ondansetron 4 mg tablet,disintegrating 4 mg PO Q6H PRN (Reason: nausea and vomiting) Qty: 14 0RF No Action levothyroxine 175 mcg capsule 175 mcg PO DAILY pantoprazole 40 mg tablet,delayed release (DR/EC) 40 mg PO DAILY ranolazine 500 mg tablet extended release 12 hr 500 mg PO BID Qty: 60 11RF midodrine 10 mg tablet 10 mg PO BID rizatriptan 10 tablet 10 mg PO PRN Patient Comments: metoprolol succinate 25 mg Tablet Extended Release 24 Hr 25 mg PO DAILY Qty: 30 2RF atorvastatin 40 mg tablet 40 mg PO QHS Qty: 30 2RF quetiapine 25 mg tablet 37.5 mg PO QHS lorazepam 0.5 mg tablet 0.5 mg PO Q12H fenofibrate 50 mg Capsule 50 mg PO QHS acetaminophen 325 mg Tablet 650 mg PO Q6H PRN PRN (Reason: Pain 1-10 Or Fever >100.7) Qty: 0 0RF melatonin 3 mg Tablet 3 mg PO QHS PRN PRN (Reason: Insomnia) Qty: 0 0RF potassium chloride 20 mEq Tablet,Er Particles/Crystals 20 meq PO 1XD Qty: 0 0RF insulin glargine-yfgn 100 unit/mL (3 mL) Insulin Pen 35 unit subcut QHS Qty: 0 0RF insulin glargine-yfgn 100 unit/mL (3 mL) Insulin Pen 35 unit subcut BREAKFAST Qty: 0 0RF insulin lispro [Humalog KwikPen Insulin] 100 unit/mL Insulin Pen 20 unit subcut TIDAC Qty: 0 0RF Eliquis 5 mg Tablet 10 mg PO BID Qty: 0 0RF oxycodone 5 mg Tablet 5 mg PO Q4H PRN PRN (Reason: Pain Score 4-10) 1 Days Qty: 6 0RF sennosides-docusate sodium [Stool Softener-Stimulant Laxat] 8.6-50 mg Tablet 2 tab PO BID PRN PRN (Reason: Constipation) Qty: 0 0RF apixaban 5 mg tablet 5 mg PO BID Qty: 10 0RF Rx Instructions: Start the 5 mg twice daily dosing on 01/09/2024 after completion of the 10 mg twice daily course Primary Care Provider: Jarred Lopez Referrals: Jarred Lpoez MD [Primary Care Provider] - Activity Restrictions/Additional Instructions: There was no acute infection or traumatic injury found today. Please follow-up with pain management. Please continue your current pain management regiment per their discretion. Print Language: Upper Sorbian Disposition Disposition: Home, Self Care
[2024-03-24 16:18] LABS: Mucous, Urine 0 SEEN /hpf (<or=2+); Red Blood Cells-Urine 0 SEEN /hpf (0-5); White Blood Cells 0 SEEN /hpf (0-5)
[2024-03-24 16:35] LABS: Color, Urine Yellow (Yellow); Glucose, Dipstick Normal (Normal); Ketone-Dipstick Negative (Negative); Leukocyte Esterase-Dipstick Negative /ul (Negative); Nitrite-Dipstick Negative (Negative); Occult Blood-Urine Negative /ul (Negative); Protein-Dipstick 15 mg/dl (Negative); Urine Bilirubin Dipstick Negative (Negative); Urine Clarity Clear (Clear); Urine Urobilinogen Normal (Normal)
[2024-03-24] MEDS: Acetaminophen 325 MG Tablet 650 MG PO (16:50)
[2024-03-24 17:02] LABS: Bacteria 1+ /hpf (None Seen); Squamous Epithelial Cells - UA 0-5 SEEN /hpf (5-10)
--- NOTE | 2024-03-24 17:41 | ED.RN ---
REPORT CALLED TO [facility] NURSE CEDRIC BROOKS
== END 2024-03-24 18:17 | disposition skilled nursing facility (03) ==
PROVIDERS: Emergency Provider Emergency Medicine; PCP Family Medicine; Visit Provider Emergency Medicine
DX: S09.90XA Unspecified injury of head, initial encounter (principal); E11.22 Type 2 diabetes mellitus with diabetic chronic kidney disease; Z79.4 Long term (current) use of insulin; N18.30 Chronic kidney disease, stage 3 unspecified; M48.061 Spinal stenosis, lumbar region without neurogenic claudication; Z87.891 Personal history of nicotine dependence; R11.2 Nausea with vomiting, unspecified; M51.36 Other intervertebral disc degeneration, lumbar region; M47.816 Spondylosis without myelopathy or radiculopathy, lumbar region; R26.2 Difficulty in walking, not elsewhere classified; Z86.711 Personal history of pulmonary embolism; Z79.899 Other long term (current) drug therapy; I12.9 Hypertensive chronic kidney disease with stage 1 through stage 4 chronic kidney disease, or unspecified chronic kidney disease; Z79.01 Long term (current) use of anticoagulants; V48.4XXA Person boarding or alighting a car injured in noncollision transport accident, initial encounter; Y93.89 Activity, other specified; Y92.531 Health care provider office as the place of occurrence of the external cause
CPT/HCPCS: 70450; 72125; 72131; 80053; 81001; 83690; 85025; 96374; 96375; 99285; J2405

== ENCOUNTER → 2024-03-24 | Outpatient (REF) | payer MEDICARE, MEDICAID, SELFPAY ==
[2024-03-24 07:19] LABS: Absolute Neutrophil Count 7.7 X10^3/uL (2.0-7.7); Basophil# 0.02 X10^3/uL; Basophil% 0.2 % (0-1); Hematocrit 36.4 % (37-47); Hemoglobin 11.7 g/dL (12.0-15.0); Lymphocyte % 22.1 % (19-41); Mean Corp Hgb Conc 32.1 g/dL (32-36); Mean Corpuscular Hgb 27.9 pg (27.0-32.0); Mean Corpuscular Volume 86.7 fL (81-99); Mean Platelet Vol. 9.2 fl (6.2-12.0); Monocyte# 0.35 X10^3/uL; Monocyte% 3.4 % (0-10); NRBC Flagged by Analyzer 0 % (0-5); Neutrophil # 7.71 X10^3/uL (2.7-7.7); Platelet Count 473 K/mm3 (150-450); RBC Distribution Width CV 13.3 % (11.6-14.6); RBC Distribution Width SD 41.9 fl (35.1-43.9); White Blood Count 10.4 K/mm3 (4.4-11.0)
[2024-03-24 07:38] LABS: Anion Gap 5 (5-15); BUN 20 mg/dL (7-18); BUN/Creat Ratio 17.9 RATIO (10-20); Calcium,Total 9.6 mg/dL (8.5-10.1); Chloride 104 mmol/L (98-107); Creatinine, Serum 1.12 mg/dL (0.55-1.02); EST Glomerular Filtration Rate 53 mL/min (>60); Est Glom Filt Rate - Afr Amer 64 mL/min (>60); Glucose 225 mg/dL (74-106); Potassium 4.4 mmol/L (3.5-5.1); Sodium Level 134 mmol/L (136-145)
== END ==
LOC: OLS.WHLEAS 05:00
PROVIDERS: PCP Family Medicine; Visit Provider Internal Medicine
DX: E11.22 Type 2 diabetes mellitus with diabetic chronic kidney disease (principal); E11.65 Type 2 diabetes mellitus with hyperglycemia; N18.9 Chronic kidney disease, unspecified
CPT/HCPCS: 36415; 80048; 85025

== ENCOUNTER → 2024-03-31 | Outpatient (REF) | payer MEDICARE, MEDICAID, SELFPAY ==
[2024-03-31 08:56] LABS: Absolute Lymphocyte Count 3.52 X10^3/uL (0.83-4.51); Absolute Neutrophil Count 5.6 X10^3/uL (2.0-7.7); Basophil# 0.07 X10^3/uL; Basophil% 0.7 % (0-1); Eosinophil# 0.12 X10^3/uL; Eosinophils% 1.2 % (0-5); Hematocrit 34.8 % (37-47); Hemoglobin 10.8 g/dL (12.0-15.0); Lymphocyte # 3.52 X10^3/ul (0.83-4.51); Lymphocyte % 35.3 % (19-41); Mean Corpuscular Hgb 27.6 pg (27.0-32.0); Mean Platelet Vol. 9.5 fl (6.2-12.0); Monocyte# 0.61 X10^3/uL; Monocyte% 6.1 % (0-10); NRBC Flagged by Analyzer 0 % (0-5); Neutrophil # 5.62 X10^3/uL (2.7-7.7); Neutrophil % 56.3 % (47-70); Platelet Count 404 K/mm3 (150-450); RBC Distribution Width CV 13.9 % (11.6-14.6); RBC Distribution Width SD 44.3 fl (35.1-43.9); Red Blood Count 3.91 M/mm3 (4.2-5.4)
[2024-03-31 09:12] LABS: Anion Gap 9 (5-15); BUN 24 mg/dL (7-18); Calcium,Total 9.1 mg/dL (8.5-10.1); Chloride 101 mmol/L (98-107); Creatinine, Serum 1.09 mg/dL (0.55-1.02); EST Glomerular Filtration Rate 54 mL/min (>60); Est Glom Filt Rate - Afr Amer 66 mL/min (>60); Glucose 145 mg/dL (74-106); Potassium 4.5 mmol/L (3.5-5.1); Sodium Level 138 mmol/L (136-145)
== END ==
LOC: OLS.WHLEAS 04:00
PROVIDERS: PCP Family Medicine; Referring Provider Internal Medicine; Visit Provider Internal Medicine
DX: E11.22 Type 2 diabetes mellitus with diabetic chronic kidney disease (principal); E11.65 Type 2 diabetes mellitus with hyperglycemia; N17.9 Acute kidney failure, unspecified
CPT/HCPCS: 36415; 80048; 85025

== ENCOUNTER 2024-04-02 11:49 | Emergency (ER) | payer MEDICARE, MEDICAID, SELFPAY ==
[2024-04-02 11:50] VITALS: BP 148/70; PULSE 88; RESP 13; TEMP 36.5; O2SAT 97; BMI 34.7
--- NOTE | 2024-04-02 12:10 | EKG12_ITS ---
Test Reason : CHEST PAIN Blood Pressure : / mmHG Vent. Rate : 080 BPM Atrial Rate : 080 BPM P-R Int : 168 ms QRS Dur : 080 ms QT Int : 406 ms P-R-T Axes : 023 -28 -02 degrees QTc Int : 468 ms Normal sinus rhythm Cannot rule out Anterior infarct , age undetermined Abnormal ECG Confirmed by Harry Luciano ([id number]), publications editor MILE MCMAHAN ([id number]) on 04/03/2024 11:19:27 AM Referred By: Confirmed By:Harry Luciano
--- NOTE | 2024-04-02 12:11 | RAD_ITS ---
STUDY: X-RAY CHEST REASON FOR EXAM: Female, 58 years old. Chest pain TECHNIQUE: Frontal and lateral views of the chest. COMPARISON: January 20, 2024 FINDINGS: The lungs are clear and expanded. There is no demonstrated pleural abnormality. Normal size heart. Normal mediastinum and adryan. Normal visualized pulmonary arteries. There is atherosclerotic calcification of the aortic arch. There is demineralization of the osseous structures. Normal visualized ribs, clavicles, and shoulders. There is no demonstrated abnormality of the visualized soft tissue structures of the upper abdomen. RAD/Chest PA and Lateral IMPRESSION: Degenerative changes, as described above. No demonstrated acute cardiopulmonary process. Electronically Signed: Adebayo Waggoner MD at 12:39 EDT ,
--- NOTE | 2024-04-02 12:17 | EX.ED.DYSGE1 ---
HPI <GAIL Fuller - Last Filed: 04/02/24 17:16> History of Present Illness Chief Complaint: Hypoglycemia Narrative Narrative: Patient presenting today due to hypoglycemia. Patient is coming from a group home facility where her blood sugar was found to be in the 40s this morning, they did give her oral glucose, a candy bar, and pop which did bring it up somewhat, by the time EMS arrived they were able to get her blood sugar into the 90s. Patient then began complaining of chest pain that she describes as being a constant dull pressure on the left side of her chest that radiates to her left shoulder and left jaw. She reports that this pain started about 30 minutes ago and she is also feeling nauseous. She has a PMH of CAD, CKD, HTN, HLD, T2DM. She is on Eliquis for history of PE. PFSH <GAIL Fuller - Last Filed: 04/02/24 17:16> [facility] Medical History Anxiety and depression Diabetes mellitus, type 2 Pulmonary emboli Parathyroid disease History of left heart catheterization (LHC) (~05/21/22) CKD (chronic kidney disease) stage 3, GFR 30-59 ml/min Essential hypertension Orthostatic hypotension Hypothyroidism Chronic back pain Obesity (BMI 35.0-39.9 without comorbidity) Normochromic normocytic anemia Hyperlipidemia Former smoker Opiate abuse, continuous Intervertebral disc disorder with radiculopathy of lumbar region Carpal tunnel syndrome Kidney stones Thyroid disease Migraines Stomach ulcer HTN (hypertension) Home Medications ?Medication ?Instructions ?Recorded ?Last Taken ?Type rizatriptan 10 mg tablet 10 mg PO PRN Migraine Symptoms 12/27/17 01/01/24 History atorvastatin 40 mg tablet 40 mg PO QHS #30 tabs 05/21/22 12/31/23 Rx metoprolol succinate 25 mg 25 mg PO DAILY #30 tabs 05/21/22 01/01/24 Rx tablet,extended release 24 hr pantoprazole 40 mg tablet,delayed 40 mg PO DAILY 06/12/22 01/01/24 History release ranolazine 500 mg tablet,extended 500 mg PO BID #60 tabs 06/12/22 01/01/24 Rx release,12 hr midodrine 10 mg tablet 10 mg PO BID 09/09/22 01/01/24 History fenofibrate 50 mg capsule 50 mg PO QHS 01/29/23 12/31/23 History lorazepam 0.5 mg tablet 0.5 mg PO Q12H anxeity 01/29/23 12/31/23 History quetiapine 25 mg tablet 37.5 mg PO QHS 01/29/23 11/15/23 History acetaminophen 325 mg tablet 650 mg (2 x 325 mg) PO Q6H PRN PRN 11/24/23 Unknown Rx Pain 1-10 Or Fever >100.7 #0 tabs melatonin 3 mg tablet 3 mg PO QHS PRN PRN Insomnia #0 11/24/23 12/31/23 Rx tabs potassium chloride 20 mEq 20 meq PO 1XD #0 tabs 11/24/23 01/01/24 Rx tablet,extended release(part/cryst) apixaban 5 mg tablet (Eliquis) 10 mg (2 x 5 mg) PO BID #0 tabs 01/05/24 Unknown Rx insulin glargine-yfgn 100 unit/mL 35 unit (0.35 mL) subcut BREAKFAST 01/05/24 Unknown Rx (3 mL) subcutaneous pen #0 mL insulin glargine-yfgn 100 unit/mL 35 unit (0.35 mL) subcut QHS #0 mL 01/05/24 Unknown Rx (3 mL) subcutaneous pen sennosides 8.6 mg-docusate sodium 2 tab PO BID PRN PRN Constipation 01/05/24 Unknown Rx 50 mg tablet (Stool #0 tabs Softener-Stimulant Laxative) buprenorphine 10 mcg/hour weekly 1 patch topical QWEEK 03/24/24 Unknown History transdermal patch dulaglutide 1.5 mg/0.5 mL 1.5 mg subcut Q7D 03/24/24 Unknown History subcutaneous pen injector (Trulicity) levothyroxine 175 mcg tablet 175 mcg PO DAILY 03/24/24 Unknown History ondansetron HCl 4 mg tablet 4 mg PO Q8H PRN PRN nausea and 03/24/24 Unknown History vomiting insulin lispro 100 unit/mL 12 unit subcut TIDAC 04/02/24 Unknown History subcutaneous pen (Humalog KwikPen (U-100) Insulin) loperamide 2 mg capsule 2 mg PO Q6H PRN loose stool 04/02/24 Unknown History (Anti-Diarrheal (loperamide)) nystatin 100,000 unit/gram topical 1 applic topical BID 04/02/24 Unknown History powder (Nyamyc) Allergy/AdvReac Type Severity Reaction Status Date / Time celecoxib (From Celebrex) Allergy Itching Verified 04/02/24 11:50 ciprofloxacin (From Cipro) Allergy Swelling Verified 04/02/24 11:50 ciprofloxacin HCl (From Allergy Swelling Verified 04/02/24 11:50 Cipro) codeine Allergy Hives Verified 04/02/24 11:50 ibuprofen Allergy Hives Verified 04/02/24 11:50 naproxen Allergy Hives Verified 04/02/24 11:50 Penicillins Allergy Hives Verified 04/02/24 11:50 tramadol HCl (From Ultram) Allergy Hives Verified 04/02/24 11:50 ketorolac (From Toradol) AdvReac Swelling Verified 04/02/24 11:50 Family History Mother Cancer CVA (cerebral vascular accident) Hypertension Heart disease Myocardial infarction Diabetes Father Asthma Surgical History History of cholecystectomy S/P trigger finger release H/O: hysterectomy Hx of section Social History household members: other details: currently living in a NH for therapy for chronic back pain housing: retirement Smoking Status: Former smoker Tobacco: How many years used: 46 how long ago did patient quit smoking: Quit 09/2021, smoked 1 ppd since teen until quit. alcohol intake: never substance use type: other details: History of chronic opiate use. Denies abuse. ROS <GAIL Fuller - Last Filed: 04/02/24 17:16> ROS ED Constitutional Constitutional ED: Denies chills or fever(s) Cardiovascular Cardiovascular: Reports chest pain; Denies palpitations Respiratory/Chest Respiratory/Chest: Denies dyspnea Gastrointestinal Gastrointestinal: Reports nausea; Denies abdominal pain or vomiting Musculoskeletal Musculoskeletal: Denies arthralgias or myalgias Integumentary Denies rash Neurologic Neurologic: Denies weakness EXAM <GAIL Fuller - Last Filed: 04/02/24 17:16> Physical Exam Const Vital Signs: 04/02/24 11:50 04/02/24 11:54 04/02/24 12:50 Temperature 97.7 F L Temperature Source Oral Pulse Rate 88 77 Respiratory Rate 13 16 Respiratory Effort Normal Respiratory Pattern Normal Blood Pressure 148/70 H 138/62 H Blood Pressure Mean 96 87 Pulse Ox 97 99 Oxygen Delivery Method Room Air Room Air 04/02/24 14:00 04/02/24 15:00 04/02/24 15:55 Temperature 97.9 F 97.9 F Temperature Source Temporal Pulse Rate 74 77 75 Respiratory Rate 14 15 12 Respiratory Effort Respiratory Pattern Blood Pressure 157/85 H 145/64 H 138/61 H Blood Pressure Mean 109 91 86 Pulse Ox 99 99 98 Oxygen Delivery Method Room Air Room Air 04/02/24 16:00 Temperature 97.9 F Temperature Source Temporal Pulse Rate 72 Respiratory Rate 15 Respiratory Effort Respiratory Pattern Blood Pressure 138/61 H Blood Pressure Mean 86 Pulse Ox 96 Oxygen Delivery Method Room Air Positive well nourished, well developed and no apparent distress General Appearance ED: well developed HEENT Reports normocephalic and head/scalp atraumatic Mouth ED: Yes moist mucous membranes normal Eyes PERRL and EOMs intact bilaterally Neck full ROM and supple Chest Wall inspection of chest normal Chest Narrative: Left-sided and midsternal chest pain to palpation. Resp normal respiratory effort and clear to auscultation bilaterally Cardio regular rate and regular rhythm GI soft to palpation, non-tender, non-distended and no masses Back/Spine normal ROM and normal to inspection Extremity normal to inspection and full ROM Neuro oriented x3, CN's II-XII intact bilaterally, moves all extremities, no focal motor deficits and no sensory deficits noted Sensorium / Orientation: awake and alert Psych mental status grossly normal and thought process normal Skin no rashes or lesions noted and no wounds <Dr. Adebayo Camp MD - Last Filed: 04/02/24 15:36> Physical Exam Const Vital Signs: 04/02/24 11:50 04/02/24 11:54 04/02/24 12:50 Temperature 97.7 F L Temperature Source Oral Pulse Rate 88 77 Respiratory Rate 13 16 Respiratory Effort Normal Respiratory Pattern Normal Blood Pressure 148/70 H 138/62 H Blood Pressure Mean 96 87 Pulse Ox 97 99 Oxygen Delivery Method Room Air Room Air 04/02/24 14:00 04/02/24 15:00 04/02/24 15:55 Temperature 97.9 F 97.9 F Temperature Source Temporal Pulse Rate 74 77 75 Respiratory Rate 14 15 12 Respiratory Effort Respiratory Pattern Blood Pressure 157/85 H 145/64 H 138/61 H Blood Pressure Mean 109 91 86 Pulse Ox 99 99 98 Oxygen Delivery Method Room Air Room Air 04/02/24 16:00 Temperature 97.9 F Temperature Source Temporal Pulse Rate 72 Respiratory Rate 15 Respiratory Effort Respiratory Pattern Blood Pressure 138/61 H Blood Pressure Mean 86 Pulse Ox 96 Oxygen Delivery Method Room Air [facility] <GAIL Fuller - Last Filed: 04/02/24 17:16> [facility] Narrative Medical decision making narrative: Patient presenting today due to left-sided chest pressure that radiates to her left shoulder and left jaw. She did have an episode of hypoglycemia this morning that seems to be improved, glucose obtained here and is 142. Cardiac labs will be obtained. Low suspicion for PE given patient is on Eliquis. Patient's chest pain is reproducible to palpation. She was given a dose of morphine here for pain. Her glucose was checked twice here, she is no longer hypoglycemic. On reexamination she does report some improvement of her pain but is requesting additional pain medication. She was given a dose of [place]. She has a nonsignificant delta troponin. Kidney labs slightly elevated from baseline. Chest x-ray negative for any acute findings. She will be discharged back to the SNF in stable condition. Lab Data Attestation: I reviewed the patient's lab results. Lab results narrative: H&H 11.1 and 34.5, sodium 135, BUN 31, creatinine 1.2, initial troponin 14, repeat troponin 14, glucose 166 Labs: Laboratory Results - last 24 hr 04/02/24 04/02/24 04/02/24 12:08 12:10 14:09 WBC 10.5 RBC 3.94 L Hgb 11.1 L Hct 34.5 L MCV 87.6 MCH 28.2 MCHC 32.2 RDW Std Deviation 43.8 RDW Coeff of Anisa 13.6 Plt Count 339 MPV 9.1 Immature Gran % (Auto) 0.400 Neut % (Auto) 66.6 Lymph % (Auto) 24.6 [place] % (Auto) 7.1 Eos % (Auto) 0.8 Baso % (Auto) 0.5 Absolute Neuts (auto) 7.0 Absolute Lymphs (auto) 2.58 Nucleated RBC % 0 Sodium 135 L Potassium 3.7 Chloride 104 Carbon Dioxide 25.0 Anion Gap 6 BUN 31 H Creatinine 1.20 H Estim Creat Clear Calc 46.86 Est GFR (MDRD) Af Amer 59 L Est GFR (MDRD) Non-Af 49 L BUN/Creatinine Ratio 25.8 H Glucose 133 H Calcium 8.8 Troponin I High Sens 14 POC Glucose 142 H 162 H 04/02/24 04/02/24 14:44 15:29 WBC RBC Hgb Hct MCV MCH MCHC RDW Std Deviation RDW Coeff of Anisa Plt Count MPV Immature Gran % (Auto) Neut % (Auto) Lymph % (Auto) [place] % (Auto) Eos % (Auto) Baso % (Auto) Absolute Neuts (auto) Absolute Lymphs (auto) Nucleated RBC % Sodium Potassium Chloride Carbon Dioxide Anion Gap BUN Creatinine Estim Creat Clear Calc Est GFR (MDRD) Af Amer Est GFR (MDRD) Non-Af BUN/Creatinine Ratio Glucose Calcium Troponin I High Sens 14 POC Glucose 166 H Radiography X-Ray: Read by ED Physician Diagnostic Testing: Clinical Impression(s) from Imaging Studies Chest X-Ray 04/02/24 12:11 IMPRESSION: Degenerative changes, as described above. No demonstrated acute cardiopulmonary process. Electronically Signed: Adebayo Waggoner MD at 12:39 EDT , EKG Initial EKG: Comments: 80 bpm, normal sinus rhythm, no ST elevation, no signs of cardiac ischemia reviewed and interpreted by attending ED physician <Dr. Adebayo Camp MD - Last Filed: 04/02/24 15:36> [facility] Lab Data Labs: Laboratory Results - last 24 hr 04/02/24 04/02/24 04/02/24 12:08 12:10 14:09 WBC 10.5 RBC 3.94 L Hgb 11.1 L Hct 34.5 L MCV 87.6 MCH 28.2 MCHC 32.2 RDW Std Deviation 43.8 RDW Coeff of Anisa 13.6 Plt Count 339 MPV 9.1 Immature Gran % (Auto) 0.400 Neut % (Auto) 66.6 Lymph % (Auto) 24.6 [place] % (Auto) 7.1 Eos % (Auto) 0.8 Baso % (Auto) 0.5 Absolute Neuts (auto) 7.0 Absolute Lymphs (auto) 2.58 Nucleated RBC % 0 Sodium 135 L Potassium 3.7 Chloride 104 Carbon Dioxide 25.0 Anion Gap 6 BUN 31 H Creatinine 1.20 H Estim Creat Clear Calc 46.86 Est GFR (MDRD) Af Amer 59 L Est GFR (MDRD) Non-Af 49 L BUN/Creatinine Ratio 25.8 H Glucose 133 H Calcium 8.8 Troponin I High Sens 14 POC Glucose 142 H 162 H 04/02/24 04/02/24 14:44 15:29 WBC RBC Hgb Hct MCV MCH MCHC RDW Std Deviation RDW Coeff of Anisa Plt Count MPV Immature Gran % (Auto) Neut % (Auto) Lymph % (Auto) [place] % (Auto) Eos % (Auto) Baso % (Auto) Absolute Neuts (auto) Absolute Lymphs (auto) Nucleated RBC % Sodium Potassium Chloride Carbon Dioxide Anion Gap BUN Creatinine Estim Creat Clear Calc Est GFR (MDRD) Af Amer Est GFR (MDRD) Non-Af BUN/Creatinine Ratio Glucose Calcium Troponin I High Sens 14 POC Glucose 166 H Radiography Diagnostic Testing: Clinical Impression(s) from Imaging Studies Chest X-Ray 04/02/24 12:11 IMPRESSION: Degenerative changes, as described above. No demonstrated acute cardiopulmonary process. Electronically Signed: Adebayo Waggoner MD at 12:39 EDT Reading Location ID and State: [facility] / [place] , Service support , Treatment and Re-Evaluation Comments:: I have personally performed a face to face assessment of the patient and have reviewed the TYSON Note. I performed a substantive portion of the visit including all aspects of the following. My gonzalez findings include: History is symptomatic hypoglycemia that is now resolved but ever since becoming more alert she has been having left-sided chest discomfort with radiation into her left shoulder area. Nonpleuritic. Hurts more to move. Exam is tender left chest. Heart regular, lungs clear to auscultation throughout. Conversive in full sentences. Keenly alert. Medical Decison Making cardiac workup with a delta troponin. The initial measurement is negative and her EKG is normal on my interpretation. Giving her some pain medication for the pain, 2 view chest x-ray on my interpretation is normal. Will continue to observe until the delta. If negative I support discharge back to nursing facility we will continue to monitor her blood sugar. Other additions or changes: [None] Discharge Plan Triage Chief Complaint: Hypoglycemia ED Midlevel Provider: Georgette Emanuel ED Provider: Adebayo Camp Dx/Rx/DC Orders Clinical Impression: Hypoglycemia, Chest pain Instructions: Hypoglycemia (Low Blood Sugar), ED Chest Pain, Uncertain Cause Prescriptions: No Action pantoprazole 40 mg tablet,delayed release (DR/EC) 40 mg PO DAILY ranolazine 500 mg tablet extended release 12 hr 500 mg PO BID Qty: 60 11RF midodrine 10 mg tablet 10 mg PO BID rizatriptan 10 tablet 10 mg PO PRN Patient Comments: metoprolol succinate 25 mg Tablet Extended Release 24 Hr 25 mg PO DAILY Qty: 30 2RF atorvastatin 40 mg tablet 40 mg PO QHS Qty: 30 2RF quetiapine 25 mg tablet 37.5 mg PO QHS lorazepam 0.5 mg tablet 0.5 mg PO Q12H fenofibrate 50 mg Capsule 50 mg PO QHS acetaminophen 325 mg Tablet 650 mg PO Q6H PRN PRN (Reason: Pain 1-10 Or Fever >100.7) Qty: 0 0RF melatonin 3 mg Tablet 3 mg PO QHS PRN PRN (Reason: Insomnia) Qty: 0 0RF potassium chloride 20 mEq Tablet,Er Particles/Crystals 20 meq PO 1XD Qty: 0 0RF buprenorphine 10 mcg/hour patch weekly 1 patch topical QWEEK Rx Instructions: FRIDAYS Trulicity 1.5 mg/0.5 mL pen injector 1.5 mg subcut Q7D Rx Instructions: MONDAYS levothyroxine 175 mcg tablet 175 mcg PO DAILY ondansetron HCl 4 mg tablet 4 mg PO Q8H PRN PRN (Reason: nausea and vomiting) nystatin [Nyamyc] 100,000 unit/gram powder 1 applic topical BID loperamide [Anti-Diarrheal (loperamide)] 2 mg capsule 2 mg PO Q6H PRN (Reason: loose stool) insulin lispro [Humalog KwikPen Insulin] 100 unit/mL Insulin Pen 12 unit subcut TIDAC insulin glargine-yfgn 100 unit/mL (3 mL) Insulin Pen 35 unit subcut QHS Qty: 0 0RF insulin glargine-yfgn 100 unit/mL (3 mL) Insulin Pen 35 unit subcut BREAKFAST Qty: 0 0RF Eliquis 5 mg Tablet 10 mg PO BID Qty: 0 0RF sennosides-docusate sodium [Stool Softener-Stimulant Laxat] 8.6-50 mg Tablet 2 tab PO BID PRN PRN (Reason: Constipation) Qty: 0 0RF Primary Care Provider: Jarred Lopez Referrals: Jarerd Lopez MD [Primary Care Provider] - 5-7 Days Activity Restrictions/Additional Instructions: Follow-up with your PCP and return for any worsening of your symptoms. Print Language: Ghanaian Disposition Disposition: Home, Self Care Discharge Date/Time: 04/02/24 16:56
[2024-04-02 12:22] LABS: Absolute Lymphocyte Count 2.58 X10^3/uL (0.83-4.51); Basophil# 0.05 X10^3/uL; Basophil% 0.5 % (0-1); Eosinophil# 0.08 X10^3/uL; Eosinophils% 0.8 % (0-5); Hematocrit 34.5 % (37-47); Hemoglobin 11.1 g/dL (12.0-15.0); Lymphocyte # 2.58 X10^3/ul (0.83-4.51); Lymphocyte % 24.6 % (19-41); Mean Corp Hgb Conc 32.2 g/dL (32-36); Mean Corpuscular Hgb 28.2 pg (27.0-32.0); Mean Corpuscular Volume 87.6 fL (81-99); Mean Platelet Vol. 9.1 fl (6.2-12.0); Monocyte# 0.75 X10^3/uL; Monocyte% 7.1 % (0-10); NRBC Flagged by Analyzer 0 % (0-5); Neutrophil % 66.6 % (47-70); Platelet Count 339 K/mm3 (150-450); RBC Distribution Width CV 13.6 % (11.6-14.6); RBC Distribution Width SD 43.8 fl (35.1-43.9); Red Blood Count 3.94 M/mm3 (4.2-5.4); White Blood Count 10.5 K/mm3 (4.4-11.0)
[2024-04-02 12:28] LABS: Bedside Glucose 142 mg/dL (74-106)
[2024-04-02 12:39] LABS: Anion Gap 6 (5-15); BUN 31 mg/dL (7-18); BUN/Creat Ratio 25.8 RATIO (10-20); Calcium,Total 8.8 mg/dL (8.5-10.1); Chloride 104 mmol/L (98-107); EST Glomerular Filtration Rate 49 mL/min (>60); Est Glom Filt Rate - Afr Amer 59 mL/min (>60); Estimated Creatinine Clearance 46.86 ml/min; Glucose 133 mg/dL (74-106); Potassium 3.7 mmol/L (3.5-5.1); Sodium Level 135 mmol/L (136-145); Troponin-I HS (w/2H Reflex) 14 pg/mL (3.0-54.0)
[2024-04-02 12:50] VITALS: BP 138/62; PULSE 77; RESP 16; O2SAT 99
[2024-04-02] MEDS: Ondansetron 4 MG/2 ML Vial IV (12:56)
[2024-04-02] MEDS: Morphine 4 MG/ML Syringe IV (13:17)
[2024-04-02 14:00] VITALS: BP 157/85; PULSE 74; RESP 14; TEMP 36.6; O2SAT 99
[2024-04-02 14:19] LABS: Reflex Troponin-HS? (from REC) Y
[2024-04-02 14:27] LABS: Bedside Glucose 162 mg/dL (74-106)
[2024-04-02 15:00] VITALS: BP 145/64; PULSE 77; RESP 15; O2SAT 99
[2024-04-02 15:17] LABS: Troponin-I HS 14 pg/mL (3.0-54.0)
[2024-04-02 15:47] LABS: Bedside Glucose 166 mg/dL (74-106)
[2024-04-02] MEDS: HYDROcodone Bitartrate/Apap 5/325 Tablet PO (15:53)
[2024-04-02 15:55] VITALS: BP 138/61; PULSE 75; RESP 12; TEMP 36.6; O2SAT 98
[2024-04-02 16:00] VITALS: BP 138/61; PULSE 72; RESP 15; TEMP 36.6; O2SAT 96
== END 2024-04-02 16:56 | disposition home or self-care (01) ==
PROVIDERS: Physician Assistant; Emergency Provider Emergency Medicine; PCP Family Medicine; Visit Provider Emergency Medicine
DX: E11.649 Type 2 diabetes mellitus with hypoglycemia without coma (principal); E11.22 Type 2 diabetes mellitus with diabetic chronic kidney disease; N18.30 Chronic kidney disease, stage 3 unspecified; E78.5 Hyperlipidemia, unspecified; M54.9 Dorsalgia, unspecified; I25.10 Atherosclerotic heart disease of native coronary artery without angina pectoris; Z87.891 Personal history of nicotine dependence; I12.9 Hypertensive chronic kidney disease with stage 1 through stage 4 chronic kidney disease, or unspecified chronic kidney disease; R07.9 Chest pain, unspecified; Z79.01 Long term (current) use of anticoagulants; Z86.711 Personal history of pulmonary embolism; G89.29 Other chronic pain; E03.9 Hypothyroidism, unspecified
CPT/HCPCS: 71046; 80048; 82962; 84484; 85025; 93005; 99283; A4216; J2405

== ENCOUNTER → 2024-04-07 | Outpatient (REF) | payer MEDICARE, MEDICAID, SELFPAY ==
[2024-04-07 08:33] LABS: Absolute Lymphocyte Count 3.13 X10^3/uL (0.83-4.51); Absolute Neutrophil Count 3.6 X10^3/uL (2.0-7.7); Basophil# 0.03 X10^3/uL; Basophil% 0.4 % (0-1); Eosinophil# 0.07 X10^3/uL; Hematocrit 33.9 % (37-47); Hemoglobin 10.9 g/dL (12.0-15.0); Lymphocyte # 3.13 X10^3/ul (0.83-4.51); Lymphocyte % 42.9 % (19-41); Mean Corp Hgb Conc 32.2 g/dL (32-36); Mean Corpuscular Hgb 28.3 pg (27.0-32.0); Mean Corpuscular Volume 88.1 fL (81-99); Mean Platelet Vol. 8.9 fl (6.2-12.0); Monocyte# 0.43 X10^3/uL; Monocyte% 5.9 % (0-10); NRBC Flagged by Analyzer 0 % (0-5); Neutrophil # 3.61 X10^3/uL (2.7-7.7); Neutrophil % 49.5 % (47-70); Platelet Count 334 K/mm3 (150-450); RBC Distribution Width CV 14.2 % (11.6-14.6); RBC Distribution Width SD 45.2 fl (35.1-43.9); Red Blood Count 3.85 M/mm3 (4.2-5.4); White Blood Count 7.3 K/mm3 (4.4-11.0)
[2024-04-07 08:54] LABS: ALB/GLOB Ratio 0.8 RATIO (0.9-2.4); AST(SGOT) 16 U/L (15-37); Alanine Aminotransfer ALT/SGPT 25 U/L (13-56); Albumin, Serum 2.8 g/dL (3.2-5.0); Alkaline Phosphatase 41 U/L (45-117); Anion Gap 7 (5-15); BUN 17 mg/dL (7-18); BUN/Creat Ratio 18.8 RATIO (10-20); Calcium,Total 8.6 mg/dL (8.5-10.1); Chloride 107 mmol/L (98-107); EST Glomerular Filtration Rate 68 mL/min (>60); Est Glom Filt Rate - Afr Amer 82 mL/min (>60); Globulin 3.4 g/dL (2.2-4.2); Glucose 164 mg/dL (74-106); Potassium 3.8 mmol/L (3.5-5.1); Protein, Total 6.2 g/dL (6.4-8.2); Sodium Level 138 mmol/L (136-145)
== END ==
LOC: OLS.WHLEAS 05:00
PROVIDERS: PCP Family Medicine; Visit Provider Internal Medicine
DX: E11.22 Type 2 diabetes mellitus with diabetic chronic kidney disease (principal); E11.65 Type 2 diabetes mellitus with hyperglycemia; N17.9 Acute kidney failure, unspecified
CPT/HCPCS: 36415; 80053; 85025

== ENCOUNTER → 2024-04-10 | Outpatient (REF) | payer MEDICARE, MEDICAID, SELFPAY ==
[2024-04-10 08:38] LABS: Absolute Lymphocyte Count 2.85 X10^3/uL (0.83-4.51); Absolute Neutrophil Count 3.5 X10^3/uL (2.0-7.7); Basophil# 0.04 X10^3/uL; Basophil% 0.6 % (0-1); Eosinophil# 0.13 X10^3/uL; Eosinophils% 1.9 % (0-5); Hematocrit 33.5 % (37-47); Hemoglobin 10.6 g/dL (12.0-15.0); Lymphocyte # 2.85 X10^3/ul (0.83-4.51); Mean Corp Hgb Conc 31.6 g/dL (32-36); Mean Corpuscular Hgb 27.9 pg (27.0-32.0); Mean Corpuscular Volume 88.2 fL (81-99); Mean Platelet Vol. 9.3 fl (6.2-12.0); Monocyte# 0.41 X10^3/uL; Monocyte% 5.9 % (0-10); NRBC Flagged by Analyzer 0 % (0-5); Neutrophil % 50.3 % (47-70); Platelet Count 334 K/mm3 (150-450); RBC Distribution Width CV 14.2 % (11.6-14.6); RBC Distribution Width SD 45.5 fl (35.1-43.9)
[2024-04-10 09:17] LABS: Anion Gap 9 (5-15); BUN 11 mg/dL (7-18); BUN/Creat Ratio 13.8 RATIO (10-20); Calcium,Total 9.1 mg/dL (8.5-10.1); Chloride 107 mmol/L (98-107); EST Glomerular Filtration Rate 78 mL/min (>60); Est Glom Filt Rate - Afr Amer 94 mL/min (>60); Glucose 162 mg/dL (74-106); Potassium 3.9 mmol/L (3.5-5.1); Sodium Level 140 mmol/L (136-145)
== END ==
LOC: OLS.WHLEAS 04:00
PROVIDERS: PCP Family Medicine; Referring Provider Internal Medicine; Visit Provider Internal Medicine
DX: E87.8 Other disorders of electrolyte and fluid balance, not elsewhere classified (principal); Z86.711 Personal history of pulmonary embolism
CPT/HCPCS: 36415; 80048; 85025

== ENCOUNTER → 2024-04-14 | Outpatient (REF) | payer MEDICARE, MEDICAID, SELFPAY ==
[2024-04-14 07:44] LABS: Absolute Lymphocyte Count 2.95 X10^3/uL (0.83-4.51); Absolute Neutrophil Count 3.1 X10^3/uL (2.0-7.7); Basophil# 0.05 X10^3/uL; Basophil% 0.8 % (0-1); Eosinophil# 0.14 X10^3/uL; Eosinophils% 2.1 % (0-5); Hematocrit 34.3 % (37-47); Hemoglobin 10.8 g/dL (12.0-15.0); Lymphocyte # 2.95 X10^3/ul (0.83-4.51); Lymphocyte % 44.4 % (19-41); Mean Corp Hgb Conc 31.5 g/dL (32-36); Mean Corpuscular Hgb 28.1 pg (27.0-32.0); Mean Corpuscular Volume 89.1 fL (81-99); Mean Platelet Vol. 9.3 fl (6.2-12.0); NRBC Flagged by Analyzer 0 % (0-5); Neutrophil # 3.09 X10^3/uL (2.7-7.7); Neutrophil % 46.5 % (47-70); Platelet Count 322 K/mm3 (150-450); RBC Distribution Width CV 13.9 % (11.6-14.6); RBC Distribution Width SD 45.1 fl (35.1-43.9); Red Blood Count 3.85 M/mm3 (4.2-5.4); White Blood Count 6.6 K/mm3 (4.4-11.0)
[2024-04-14 08:02] LABS: Anion Gap 7 (5-15); BUN 14 mg/dL (7-18); BUN/Creat Ratio 15.9 RATIO (10-20); Calcium,Total 8.7 mg/dL (8.5-10.1); Chloride 106 mmol/L (98-107); Creatinine, Serum 0.88 mg/dL (0.55-1.02); EST Glomerular Filtration Rate 69 mL/min (>60); Est Glom Filt Rate - Afr Amer 84 mL/min (>60); Glucose 123 mg/dL (74-106); Potassium 4.2 mmol/L (3.5-5.1); Sodium Level 138 mmol/L (136-145)
== END ==
LOC: OLS.WHLEAS 05:00
PROVIDERS: PCP Family Medicine; Visit Provider Internal Medicine
DX: E11.22 Type 2 diabetes mellitus with diabetic chronic kidney disease (principal); E11.65 Type 2 diabetes mellitus with hyperglycemia; N30.00 Acute cystitis without hematuria; N17.9 Acute kidney failure, unspecified; N18.9 Chronic kidney disease, unspecified
CPT/HCPCS: 36415; 80048; 85025

== ENCOUNTER → 2024-04-21 | Outpatient (REF) | payer MEDICAID, OTHER, SELFPAY ==
[2024-04-21 07:51] LABS: Absolute Lymphocyte Count 2.95 X10^3/uL (0.83-4.51); Absolute Neutrophil Count 2.9 X10^3/uL (2.0-7.7); Basophil# 0.06 X10^3/uL; Basophil% 0.9 % (0-1); Eosinophil# 0.11 X10^3/uL; Eosinophils% 1.7 % (0-5); Hematocrit 34.1 % (37-47); Hemoglobin 10.6 g/dL (12.0-15.0); Lymphocyte # 2.95 X10^3/ul (0.83-4.51); Lymphocyte % 45.7 % (19-41); Mean Corp Hgb Conc 31.1 g/dL (32-36); Mean Corpuscular Hgb 27.5 pg (27.0-32.0); Mean Corpuscular Volume 88.3 fL (81-99); Mean Platelet Vol. 9.4 fl (6.2-12.0); Monocyte% 6.2 % (0-10); NRBC Flagged by Analyzer 0 % (0-5); Neutrophil # 2.91 X10^3/uL (2.7-7.7); Neutrophil % 45.2 % (47-70); Platelet Count 332 K/mm3 (150-450); RBC Distribution Width CV 13.9 % (11.6-14.6); RBC Distribution Width SD 44.4 fl (35.1-43.9); Red Blood Count 3.86 M/mm3 (4.2-5.4); White Blood Count 6.5 K/mm3 (4.4-11.0)
[2024-04-21 08:08] LABS: Anion Gap 4 (5-15); BUN 16 mg/dL (7-18); BUN/Creat Ratio 16.5 RATIO (10-20); Chloride 103 mmol/L (98-107); Creatinine, Serum 0.97 mg/dL (0.55-1.02); EST Glomerular Filtration Rate 62 mL/min (>60); Est Glom Filt Rate - Afr Amer 75 mL/min (>60); Glucose 118 mg/dL (74-106); Sodium Level 137 mmol/L (136-145)
== END | disposition home or self-care (01) ==
LOC: OLS.WHLEAS 05:00
PROVIDERS: PCP Family Medicine; Visit Provider Internal Medicine
DX: E11.22 Type 2 diabetes mellitus with diabetic chronic kidney disease (principal); E11.65 Type 2 diabetes mellitus with hyperglycemia; N18.9 Chronic kidney disease, unspecified
CPT/HCPCS: 36415; 80048; 85025

== ENCOUNTER → 2024-04-28 | Outpatient (REF) | payer MEDICAID, OTHER, SELFPAY ==
[2024-04-28 08:05] LABS: Absolute Lymphocyte Count 2.56 X10^3/uL (0.83-4.51); Absolute Neutrophil Count 3.5 X10^3/uL (2.0-7.7); Basophil# 0.05 X10^3/uL; Basophil% 0.8 % (0-1); Eosinophil# 0.11 X10^3/uL; Eosinophils% 1.7 % (0-5); Hematocrit 32.3 % (37-47); Hemoglobin 10.5 g/dL (12.0-15.0); Lymphocyte # 2.56 X10^3/ul (0.83-4.51); Lymphocyte % 38.8 % (19-41); Mean Corp Hgb Conc 32.5 g/dL (32-36); Mean Corpuscular Hgb 28.5 pg (27.0-32.0); Mean Corpuscular Volume 87.8 fL (81-99); Mean Platelet Vol. 9.7 fl (6.2-12.0); Monocyte# 0.37 X10^3/uL; Monocyte% 5.6 % (0-10); NRBC Flagged by Analyzer 0 % (0-5); Neutrophil # 3.48 X10^3/uL (2.7-7.7); Neutrophil % 52.8 % (47-70); Platelet Count 309 K/mm3 (150-450); RBC Distribution Width SD 44.8 fl (35.1-43.9); Red Blood Count 3.68 M/mm3 (4.2-5.4); White Blood Count 6.6 K/mm3 (4.4-11.0)
[2024-04-28 08:26] LABS: Anion Gap 6 (5-15); BUN 17 mg/dL (7-18); BUN/Creat Ratio 18.1 RATIO (10-20); Calcium,Total 8.9 mg/dL (8.5-10.1); Chloride 104 mmol/L (98-107); Creatinine, Serum 0.94 mg/dL (0.55-1.02); EST Glomerular Filtration Rate 65 mL/min (>60); Est Glom Filt Rate - Afr Amer 78 mL/min (>60); Glucose 223 mg/dL (74-106); Potassium 3.7 mmol/L (3.5-5.1); Sodium Level 138 mmol/L (136-145)
== END | disposition home or self-care (01) ==
LOC: OLS.WHLEAS 05:00
PROVIDERS: PCP Family Medicine; Visit Provider Internal Medicine
DX: E11.22 Type 2 diabetes mellitus with diabetic chronic kidney disease (principal); E11.65 Type 2 diabetes mellitus with hyperglycemia; N17.9 Acute kidney failure, unspecified; N18.9 Chronic kidney disease, unspecified
CPT/HCPCS: 36415; 80048; 85025

== ENCOUNTER → 2024-05-05 | Outpatient (REF) | payer MEDICAID, OTHER, SELFPAY ==
[2024-05-05 07:14] LABS: Absolute Neutrophil Count 4.2 X10^3/uL (2.0-7.7); Basophil# 0.05 X10^3/uL; Basophil% 0.7 % (0-1); Eosinophils% 1.4 % (0-5); Hematocrit 32.1 % (37-47); Hemoglobin 10.4 g/dL (12.0-15.0); Lymphocyte % 33.2 % (19-41); Mean Corp Hgb Conc 32.4 g/dL (32-36); Mean Corpuscular Hgb 27.7 pg (27.0-32.0); Mean Corpuscular Volume 85.4 fL (81-99); Mean Platelet Vol. 9.8 fl (6.2-12.0); Monocyte# 0.41 X10^3/uL; Monocyte% 5.7 % (0-10); NRBC Flagged by Analyzer 0 % (0-5); Neutrophil # 4.24 X10^3/uL (2.7-7.7); Neutrophil % 58.6 % (47-70); Platelet Count 314 K/mm3 (150-450); RBC Distribution Width CV 14.1 % (11.6-14.6); Red Blood Count 3.76 M/mm3 (4.2-5.4); White Blood Count 7.2 K/mm3 (4.4-11.0)
[2024-05-05 07:40] LABS: Anion Gap 6 (5-15); BUN 19 mg/dL (7-18); BUN/Creat Ratio 20.9 RATIO (10-20); Calcium,Total 9.1 mg/dL (8.5-10.1); Chloride 103 mmol/L (98-107); Creatinine, Serum 0.91 mg/dL (0.55-1.02); EST Glomerular Filtration Rate 67 mL/min (>60); Est Glom Filt Rate - Afr Amer 81 mL/min (>60); Glucose 183 mg/dL (74-106); Potassium 3.7 mmol/L (3.5-5.1); Sodium Level 136 mmol/L (136-145)
== END | disposition home or self-care (01) ==
LOC: OLS.WHLEAS 05:00
PROVIDERS: PCP Family Medicine; Referring Provider Internal Medicine; Visit Provider Internal Medicine
DX: E11.22 Type 2 diabetes mellitus with diabetic chronic kidney disease (principal); E11.65 Type 2 diabetes mellitus with hyperglycemia; N18.9 Chronic kidney disease, unspecified
CPT/HCPCS: 36415; 80048; 85025

== ENCOUNTER → 2024-05-17 | Outpatient (REF) | payer MEDICAID, OTHER, SELFPAY ==
[2024-05-17 09:01] LABS: Thyroid Stim Hormone (TSH) 0.05 uIU/mL (0.358-3.74)
== END | disposition home or self-care (01) ==
LOC: OLS.WHLEAS 05:00
PROVIDERS: PCP Family Medicine; Referring Provider Internal Medicine; Visit Provider Internal Medicine
DX: E03.9 Hypothyroidism, unspecified (principal)
CPT/HCPCS: 36415; 84443

== ENCOUNTER → 2024-05-19 | Outpatient (REF) | payer MEDICARE, MEDICAID, SELFPAY ==
[2024-05-19 06:35] LABS: Absolute Lymphocyte Count 2.61 X10^3/uL (0.83-4.51); Absolute Neutrophil Count 4.3 X10^3/uL (2.0-7.7); Basophil# 0.04 X10^3/uL; Basophil% 0.5 % (0-1); Eosinophil# 0.13 X10^3/uL; Eosinophils% 1.7 % (0-5); Hemoglobin 10.1 g/dL (12.0-15.0); Lymphocyte # 2.61 X10^3/ul (0.83-4.51); Lymphocyte % 34.6 % (19-41); Mean Corp Hgb Conc 32.6 g/dL (32-36); Mean Corpuscular Hgb 28.1 pg (27.0-32.0); Mean Corpuscular Volume 86.1 fL (81-99); Mean Platelet Vol. 9.7 fl (6.2-12.0); Monocyte# 0.43 X10^3/uL; Monocyte% 5.7 % (0-10); NRBC Flagged by Analyzer 0 % (0-5); Neutrophil # 4.31 X10^3/uL (2.7-7.7); Neutrophil % 57.2 % (47-70); Platelet Count 336 K/mm3 (150-450); RBC Distribution Width CV 13.8 % (11.6-14.6); RBC Distribution Width SD 43.3 fl (35.1-43.9); White Blood Count 7.5 K/mm3 (4.4-11.0)
[2024-05-19 06:50] LABS: Anion Gap 5 (5-15); BUN 16 mg/dL (7-18); BUN/Creat Ratio 17.4 RATIO (10-20); Calcium,Total 8.7 mg/dL (8.5-10.1); Chloride 103 mmol/L (98-107); Creatinine, Serum 0.92 mg/dL (0.55-1.02); EST Glomerular Filtration Rate 66 mL/min (>60); Est Glom Filt Rate - Afr Amer 80 mL/min (>60); Glucose 215 mg/dL (74-106); Sodium Level 137 mmol/L (136-145)
== END ==
LOC: OLS.WHLEAS 05:00
PROVIDERS: PCP Family Medicine; Visit Provider Internal Medicine
DX: E11.22 Type 2 diabetes mellitus with diabetic chronic kidney disease (principal); E11.65 Type 2 diabetes mellitus with hyperglycemia; N18.9 Chronic kidney disease, unspecified
CPT/HCPCS: 36415; 80048; 85025

== ENCOUNTER → 2024-05-26 | Outpatient (REF) | payer MEDICARE, MEDICAID, SELFPAY ==
[2024-05-26 08:16] LABS: Absolute Neutrophil Count 3.9 X10^3/uL (2.0-7.7); Basophil# 0.05 X10^3/uL; Basophil% 0.7 % (0-1); Eosinophil# 0.09 X10^3/uL; Eosinophils% 1.2 % (0-5); Hematocrit 28.7 % (37-47); Hemoglobin 9.2 g/dL (12.0-15.0); Lymphocyte % 37.3 % (19-41); Mean Corp Hgb Conc 32.1 g/dL (32-36); Mean Corpuscular Hgb 28.2 pg (27.0-32.0); Monocyte# 0.47 X10^3/uL; Monocyte% 6.5 % (0-10); NRBC Flagged by Analyzer 0 % (0-5); Neutrophil % 53.9 % (47-70); Platelet Count 302 K/mm3 (150-450); RBC Distribution Width SD 44.8 fl (35.1-43.9); Red Blood Count 3.26 M/mm3 (4.2-5.4); White Blood Count 7.2 K/mm3 (4.4-11.0)
[2024-05-26 08:18] LABS: AST(SGOT) 20 U/L (15-37); Alanine Aminotransfer ALT/SGPT 23 U/L (13-56); Albumin, Serum 2.5 g/dL (3.2-5.0); Alkaline Phosphatase 52 U/L (45-117); Anion Gap 7 (5-15); BUN 20 mg/dL (7-18); BUN/Creat Ratio 17.9 RATIO (10-20); Bilirubin, Direct 0.12 mg/dL (0.00-0.30); Calcium,Total 8.5 mg/dL (8.5-10.1); Chloride 103 mmol/L (98-107); Cholesterol 108 mg/dL (200); Creatinine, Serum 1.12 mg/dL (0.55-1.02); EST Glomerular Filtration Rate 53 mL/min (>60); Est Glom Filt Rate - Afr Amer 64 mL/min (>60); Globulin 3.5 g/dL (2.2-4.2); Glucose 334 mg/dL (74-106); High Density Lipoprotein 25 mg/dL; Sodium Level 138 mmol/L (136-145); Triglycerides 308 mg/dL; Very Low Density Lipoprotein 62 mg/dL (5-40)
[2024-05-26 10:27] LABS: Hemoglobin A1c 7.2 % (3.8-5.6)
== END ==
LOC: OLS.WHLEAS 05:00
PROVIDERS: PCP Family Medicine; Visit Provider Internal Medicine
DX: E11.22 Type 2 diabetes mellitus with diabetic chronic kidney disease (principal); N18.9 Chronic kidney disease, unspecified; E11.65 Type 2 diabetes mellitus with hyperglycemia; N17.9 Acute kidney failure, unspecified; N30.00 Acute cystitis without hematuria
CPT/HCPCS: 36415; 80048; 80061; 80076; 83036; 85025

== ENCOUNTER → 2024-06-02 | Outpatient (REF) | payer MEDICARE, MEDICAID, SELFPAY ==
[2024-06-02 07:14] LABS: Absolute Lymphocyte Count 2.19 X10^3/uL (0.83-4.51); Absolute Neutrophil Count 3.3 X10^3/uL (2.0-7.7); Basophil# 0.04 X10^3/uL; Basophil% 0.7 % (0-1); Eosinophils% 1.7 % (0-5); Lymphocyte # 2.19 X10^3/ul (0.83-4.51); Lymphocyte % 36.3 % (19-41); Mean Corp Hgb Conc 32.3 g/dL (32-36); Mean Corpuscular Hgb 28.3 pg (27.0-32.0); Mean Corpuscular Volume 87.8 fL (81-99); Mean Platelet Vol. 9.8 fl (6.2-12.0); Monocyte# 0.38 X10^3/uL; Monocyte% 6.3 % (0-10); NRBC Flagged by Analyzer 0 % (0-5); Neutrophil # 3.31 X10^3/uL (2.7-7.7); Neutrophil % 54.7 % (47-70); Platelet Count 323 K/mm3 (150-450); RBC Distribution Width CV 14.4 % (11.6-14.6); RBC Distribution Width SD 45.7 fl (35.1-43.9); Red Blood Count 3.53 M/mm3 (4.2-5.4)
[2024-06-02 07:42] LABS: Anion Gap 6 (5-15); BUN 23 mg/dL (7-18); BUN/Creat Ratio 19.3 RATIO (10-20); Calcium,Total 8.6 mg/dL (8.5-10.1); Chloride 103 mmol/L (98-107); Creatinine, Serum 1.19 mg/dL (0.55-1.02); EST Glomerular Filtration Rate 49 mL/min (>60); Est Glom Filt Rate - Afr Amer 59 mL/min (>60); Glucose 364 mg/dL (74-106); Sodium Level 136 mmol/L (136-145)
== END ==
LOC: OLS.WHLEAS 05:00
PROVIDERS: PCP Family Medicine; Visit Provider Internal Medicine
DX: E11.22 Type 2 diabetes mellitus with diabetic chronic kidney disease (principal); E11.65 Type 2 diabetes mellitus with hyperglycemia; N18.9 Chronic kidney disease, unspecified
CPT/HCPCS: 36415; 80048; 85025

== ENCOUNTER → 2024-06-02 | Outpatient (CLI) | payer MEDICARE, MEDICAID, SELFPAY ==
--- NOTE | 2024-06-02 13:37 | MRI_ITS ---
INDICATION: RADICULOPATHY EXAMINATION: MRI - MR Spine Lumbar W/O Contrast TECHNIQUE: Multiplanar and multisequence MR images of the lumbar spine without contrast. IV Contrast Dosage and Agent: None. COMPARISON: MRI lumbar spine February 24, 2022. CT Lumbar Spine March 24, 2024. FINDINGS: [place]: Normal bone marrow signal. No fracture or compression deformity. Normal lumbar spine alignment. No aggressive osseous lesion. Mild L2-L3 anterior endplate degenerative change. CORD: Conus medullaris at T12. Imaged portion of the cord is normal signal. Cauda equina layer dependently.. L1/L2: Normal disc height and morphology. Normal spinal canal, lateral recesses and neuroforamina. L2/L3: Small circumferential disc bulge with mild bilateral facet arthropathy and right ligamentum flavum hypertrophy, together causing minimal spinal canal and lateral recess narrowing. Mild bilateral neural foraminal stenosis.. L3/L4: Small broad-based posterior disc protrusion with mild bilateral facet arthropathy and ligamentum flavum hypertrophy, together causing minimal spinal canal and lateral recess narrowing. Mild bilateral neural foraminal stenosis. L4/L5: Disc height loss with small posterior central disc protrusion causing mild spinal canal and lateral recess narrowing. Mild bilateral neural foraminal stenosis. L5/S1: Small posterior central disc protrusion causing mild spinal canal and lateral recess narrowing. Mild bilateral neural foraminal stenosis. SOFT TISSUES: Unremarkable. MRI/Spine Lumbar (Routine) IMPRESSION: Mild diffuse spondylosis L2-3 through L5-S1 with mild spinal canal and neural foraminal stenosis as above. Electronically Signed: Claude Velasquez MD at 4:44 EDT ,
== END | disposition home or self-care (01) ==
PROVIDERS: PCP Family Medicine; Referring Provider Anesthesiology Pain Medicine; Visit Provider Anesthesiology Pain Medicine
DX: M54.16 Radiculopathy, lumbar region (principal)
CPT/HCPCS: 72148

== ENCOUNTER → 2024-06-05 | Outpatient (REF) | payer MEDICARE, MEDICAID, SELFPAY ==
[2024-06-05 10:05] LABS: Anion Gap 9 (5-15); BUN 21 mg/dL (7-18); BUN/Creat Ratio 21.1 RATIO (10-20); Calcium,Total 8.7 mg/dL (8.5-10.1); Chloride 101 mmol/L (98-107); Creatinine, Serum 0.99 mg/dL (0.55-1.02); EST Glomerular Filtration Rate 60 mL/min (>60); Est Glom Filt Rate - Afr Amer 73 mL/min (>60); Glucose 222 mg/dL (74-106); Potassium 4.1 mmol/L (3.5-5.1); Sodium Level 135 mmol/L (136-145)
== END ==
LOC: OLS.WHLEAS 04:00
PROVIDERS: PCP Family Medicine; Visit Provider Internal Medicine
DX: E11.65 Type 2 diabetes mellitus with hyperglycemia (principal); Z86.711 Personal history of pulmonary embolism
CPT/HCPCS: 36415; 80048

== ENCOUNTER → 2024-06-09 | Outpatient (REF) | payer MEDICARE, MEDICAID, SELFPAY ==
[2024-06-09 07:34] LABS: Absolute Lymphocyte Count 2.76 X10^3/uL (0.83-4.51); Absolute Neutrophil Count 3.9 X10^3/uL (2.0-7.7); Basophil# 0.04 X10^3/uL; Basophil% 0.5 % (0-1); Eosinophil# 0.12 X10^3/uL; Eosinophils% 1.6 % (0-5); Hematocrit 31.9 % (37-47); Hemoglobin 9.9 g/dL (12.0-15.0); Lymphocyte # 2.76 X10^3/ul (0.83-4.51); Lymphocyte % 37.9 % (19-41); Mean Corpuscular Hgb 27.3 pg (27.0-32.0); Mean Corpuscular Volume 88.1 fL (81-99); Mean Platelet Vol. 9.8 fl (6.2-12.0); Monocyte# 0.46 X10^3/uL; Monocyte% 6.3 % (0-10); NRBC Flagged by Analyzer 0 % (0-5); Neutrophil # 3.88 X10^3/uL (2.7-7.7); Neutrophil % 53.3 % (47-70); Platelet Count 330 K/mm3 (150-450); RBC Distribution Width CV 14.2 % (11.6-14.6); RBC Distribution Width SD 45.9 fl (35.1-43.9); Red Blood Count 3.62 M/mm3 (4.2-5.4); White Blood Count 7.3 K/mm3 (4.4-11.0)
[2024-06-09 07:38] LABS: Anion Gap 6 (5-15); BUN 26 mg/dL (7-18); BUN/Creat Ratio 21.8 RATIO (10-20); Calcium,Total 8.9 mg/dL (8.5-10.1); Chloride 103 mmol/L (98-107); Creatinine, Serum 1.19 mg/dL (0.55-1.02); EST Glomerular Filtration Rate 49 mL/min (>60); Est Glom Filt Rate - Afr Amer 59 mL/min (>60); Glucose 135 mg/dL (74-106); Potassium 4.1 mmol/L (3.5-5.1); Sodium Level 136 mmol/L (136-145)
== END ==
LOC: OLS.WHLEAS 05:00
PROVIDERS: PCP Family Medicine; Visit Provider Internal Medicine
DX: E11.22 Type 2 diabetes mellitus with diabetic chronic kidney disease (principal); E11.65 Type 2 diabetes mellitus with hyperglycemia; N18.9 Chronic kidney disease, unspecified
CPT/HCPCS: 36415; 80048; 85025

== ENCOUNTER 2024-06-11 23:51 | Emergency (ER) | payer MEDICARE, MEDICAID, SELFPAY ==
[2024-06-11 23:52] VITALS: BP 154/77; PULSE 99; RESP 13; TEMP 36.8; O2SAT 97; BMI 35.9
--- NOTE | 2024-06-12 00:13 | RAD_ITS ---
EXAM: XR CHEST, 1 VIEW CLINICAL INDICATION: chest pain TECHNIQUE: Frontal view of the chest. COMPARISON: April 02, 2024 FINDINGS: LUNGS AND PLEURAL SPACES: Minimal stable atelectasis or linear scarring in the lung bases. No pneumothorax. No effusion. HEART: Unremarkable. Cardiac silhouette not enlarged. MEDIASTINUM: Central airways and mediastinal contour are unremarkable. BONES/JOINTS: Unremarkable. No acute fracture. SOFT TISSUES: Unremarkable. RAD/Chest 1 View (Portable) IMPRESSION: No acute intrathoracic abnormality. Electronically Signed: Olya Cottrell MD at 1:18 EDT ,
--- NOTE | 2024-06-12 00:13 | EKG12_ITS ---
Test Reason : CP Blood Pressure : / mmHG Vent. Rate : 100 BPM Atrial Rate : 100 BPM P-R Int : 174 ms QRS Dur : 064 ms QT Int : 358 ms P-R-T Axes : 031 -21 030 degrees QTc Int : 461 ms Normal sinus rhythm Inferior infarct , age undetermined Anteroseptal infarct , age undetermined Abnormal ECG Confirmed by MCKINLEY SANTANA, JAISON ([id number]), newspaper copy editor MILE MCMAHAN ([id number]) on 06/16/2024 7:28:19 AM Referred By: Confirmed By:STEFANIE SEN MD
--- NOTE | 2024-06-12 00:14 | ED.VIS.CHEST ---
HPI History of Present Illness Chief Complaint: Chest Pain Informant: patient and EMS Narrative Narrative: 58-year-old female presents with chest discomfort that started while she was sitting watching TV about 1 hour prior to evaluation. She is in a penit[facility]iary, she transitions in and out of wheelchair but does not walk due to neuropathy in both of her legs, presumably due to diabetes according to the patient. States she has been feeling well all day today until this happened. The discomfort is pressure in her left chest radiating up her left neck and down her left upper extremity, associated with some mild dyspnea, anxiety, nausea. No vomiting. No fevers or chills or recent cough that is acute. No swelling or leg or orthopnea. Transitioning to and from wheelchair earlier in the day did not give her any chest discomfort. No history of stents in her heart that she knows of. She has a history of pulmonary emboli and is still anticoagulated for this. Discomfort is not really pleuritic. She states she has had this multiple times in the past but it has been a while. [facility] Medical History Anxiety and depression Diabetes mellitus, type 2 Pulmonary emboli Parathyroid disease History of left heart catheterization (LHC) (~05/21/22) CKD (chronic kidney disease) stage 3, GFR 30-59 ml/min Essential hypertension Orthostatic hypotension Hypothyroidism Chronic back pain Obesity (BMI 35.0-39.9 without comorbidity) Normochromic normocytic anemia Hyperlipidemia Former smoker Opiate abuse, continuous Intervertebral disc disorder with radiculopathy of lumbar region Carpal tunnel syndrome Kidney stones Thyroid disease Migraines Stomach ulcer HTN (hypertension) Home Medications ?Medication ?Instructions ?Recorded ?Last Taken ?Type rizatriptan 10 mg tablet 10 mg PO PRN Migraine Symptoms 12/27/17 01/01/24 History atorvastatin 40 mg tablet 40 mg PO QHS #30 tabs 05/21/22 12/31/23 Rx metoprolol succinate 25 mg 25 mg PO DAILY #30 tabs 05/21/22 01/01/24 Rx tablet,extended release 24 hr pantoprazole 40 mg tablet,delayed 40 mg PO DAILY 06/12/22 01/01/24 History release ranolazine 500 mg tablet,extended 500 mg PO BID #60 tabs 06/12/22 01/01/24 Rx release,12 hr midodrine 10 mg tablet 10 mg PO BID 09/09/22 01/01/24 History fenofibrate 50 mg capsule 50 mg PO QHS 01/29/23 12/31/23 History lorazepam 0.5 mg tablet 0.5 mg PO Q12H anxeity 01/29/23 12/31/23 History quetiapine 25 mg tablet 37.5 mg PO QHS 01/29/23 11/15/23 History acetaminophen 325 mg tablet 650 mg (2 x 325 mg) PO Q6H PRN PRN 11/24/23 Unknown Rx Pain 1-10 Or Fever >100.7 #0 tabs melatonin 3 mg tablet 3 mg PO QHS PRN PRN Insomnia #0 11/24/23 12/31/23 Rx tabs potassium chloride 20 mEq 20 meq PO 1XD #0 tabs 11/24/23 01/01/24 Rx tablet,extended release(part/cryst) apixaban 5 mg tablet (Eliquis) 10 mg (2 x 5 mg) PO BID #0 tabs 01/05/24 Unknown Rx insulin glargine-yfgn 100 unit/mL 35 unit (0.35 mL) subcut BREAKFAST 01/05/24 Unknown Rx (3 mL) subcutaneous pen #0 mL insulin glargine-yfgn 100 unit/mL 35 unit (0.35 mL) subcut QHS #0 mL 01/05/24 Unknown Rx (3 mL) subcutaneous pen sennosides 8.6 mg-docusate sodium 2 tab PO BID PRN PRN Constipation 01/05/24 Unknown Rx 50 mg tablet (Stool #0 tabs Softener-Stimulant Laxative) buprenorphine 10 mcg/hour weekly 1 patch topical QWEEK 03/24/24 Unknown History transdermal patch dulaglutide 1.5 mg/0.5 mL 1.5 mg subcut Q7D 03/24/24 Unknown History subcutaneous pen injector (Trulicity) levothyroxine 175 mcg tablet 175 mcg PO DAILY 03/24/24 Unknown History ondansetron HCl 4 mg tablet 4 mg PO Q8H PRN PRN nausea and 03/24/24 Unknown History vomiting insulin lispro 100 unit/mL 12 unit subcut TIDAC 04/02/24 Unknown History subcutaneous pen (Humalog KwikPen (U-100) Insulin) loperamide 2 mg capsule 2 mg PO Q6H PRN loose stool 04/02/24 Unknown History (Anti-Diarrheal (loperamide)) nystatin 100,000 unit/gram topical 1 applic topical BID 04/02/24 Unknown History powder (Nyamyc) Allergy/AdvReac Type Severity Reaction Status Date / Time celecoxib (From Celebrex) Allergy Itching Verified 06/11/24 23:52 ciprofloxacin (From Cipro) Allergy Swelling Verified 06/11/24 23:52 ciprofloxacin HCl (From Allergy Swelling Verified 06/11/24 23:52 Cipro) codeine Allergy Hives Verified 06/11/24 23:52 ibuprofen Allergy Hives Verified 06/11/24 23:52 naproxen Allergy Hives Verified 06/11/24 23:52 Penicillins Allergy Hives Verified 06/11/24 23:52 tramadol HCl (From Ultram) Allergy Hives Verified 06/11/24 23:52 ketorolac (From Toradol) AdvReac Swelling Verified 06/11/24 23:52 Family History Mother Cancer CVA (cerebral vascular accident) Hypertension Heart disease Myocardial infarction Diabetes Father Asthma Surgical History History of cholecystectomy S/P trigger finger release H/O: hysterectomy Hx of section Social History household members: other details: currently living in a NH for therapy for chronic back pain housing: [facility]iary Smoking Status: Former smoker Tobacco: How many years used: 46 how long ago did patient quit smoking: Quit 09/2021, smoked 1 ppd since teen until quit. alcohol intake: never substance use type: other details: History of chronic opiate use. Denies abuse. ROS ROS ED Constitutional Constitutional ED: Denies chills or fever(s) Eyes Eyes: Denies change in vision or diplopia ENT ENT ED: Denies rhinorrhea or sore throat Cardiovascular Cardiovascular: Reports chest pain and radiating jaw, neck or arm pain; Denies orthopnea or palpitations Respiratory/Chest Respiratory/Chest: Reports dyspnea; Denies cough or orthopnea Gastrointestinal Gastrointestinal: Reports nausea; Denies abdominal pain, diarrhea or vomiting Genitourinary Genitourinary ED: Denies dysuria or hematuria Musculoskeletal Musculoskeletal: Denies back pain or neck pain Integumentary Denies abscess or rash Neurologic Neurologic: Denies headache(s), paresthesias or weakness Psychiatric Psychiatric: Reports anxiety; Denies suicidal thoughts EXAM Physical Exam Const Vital Signs: 06/11/24 23:52 06/11/24 23:52 06/12/24 00:13 Temperature 98.3 F Temperature Source Temporal Pulse Rate 99 Respiratory Rate 13 Respiratory Effort Normal Non-Labored Blood Pressure 154/77 H Blood Pressure Mean 102 Pulse Ox 97 Oxygen Delivery Method Room Air Room Air 06/12/24 00:52 06/12/24 02:00 Temperature Temperature Source Pulse Rate 92 89 Respiratory Rate 16 15 Respiratory Effort Blood Pressure 135/69 H 112/54 L Blood Pressure Mean 91 73 Pulse Ox 96 95 Oxygen Delivery Method Room Air Room Air Positive well nourished, well developed and obese General Appearance ED: well developed and NAD Nutritional Appearance: obese HEENT Reports moist mucous membranes normocephalic and atraumatic Eyes PERRL and EOMs intact bilaterally Neck full ROM, supple and no JVD Resp normal respiratory effort and clear to auscultation bilaterally Resp Narrative: No splinting with deep inspiration Cardio regular rate, regular rhythm and no murmurs Peripheral Pulses: pulses 2+ throughout GI non-tender and non-distended GI Narrative: No pulsatile masses Auscultation: normoactive bowel sounds Palpation: soft Back/Spine no CVA tenderness General Back: other FROM Extremity normal to inspection General Extremety ED: Negative for edema, pulses abnormal or tenderness General Extremity: Negative for edema or pulses abnormal Neuro oriented x3 and CN's II-XII intact bilaterally Neuro Narrative: Decree sensation both lower extremities, baseline per patient Sensorium / Orientation: awake and alert Motor Exam: strength 5/5 throughout Psych Mood & Affect: anxious Skin no rashes or lesions noted and no wounds Heart Score History: Slightly/Non-Suspicious ECG: Normal Age: >45 - <65 years Risk Factors: >/= 3 Risk Factors or History of CAD Troponin: </= Normal Limit Score: 3 MDM MDM MDM Narrative Medical decision making narrative: EKG is normal for her, unchanged, her initial troponin is negative and her labs are normal/unremarkable except for a glucose of 289, low hemoglobin and elevated creatinine, both of which are better than prior measurements. In the meantime she was given a GI cocktail, did not help her discomfort she was asking for something else for pain she was given a dose of morphine and Zofran, while we waited for the second troponin. It returned at 11 with the initial measurement at 10, essentially negligible change. This essentially rules out acute coronary syndrome given the patient has had constant discomfort for hours, with a normal EKG unchanged compared with her prior. Stable for discharge back to [facility] for what is likely noncardiac pain. Lab Data Attestation: I reviewed the patient's lab results. Labs: Laboratory Results - last 24 hr 06/11/24 06/12/24 23:40 02:43 WBC 7.0 RBC 4.01 L Hgb 11.3 L Hct 35.7 L MCV 89.0 MCH 28.2 MCHC 31.7 L RDW Std Deviation 45.5 H RDW Coeff of Anisa 14.2 Plt Count 366 MPV 9.6 Immature Gran % (Auto) 0.400 Neut % (Auto) 59.3 Lymph % (Auto) 33.4 Phillips % (Auto) 5.0 Eos % (Auto) 1.3 Baso % (Auto) 0.6 Absolute Neuts (auto) 4.1 Absolute Lymphs (auto) 2.33 Nucleated RBC % 0 Sodium 136 Potassium 4.4 Chloride 102 Carbon Dioxide 26.0 Anion Gap 8 BUN 19 H Creatinine 1.11 H Estim Creat Clear Calc 51.48 Est GFR (MDRD) Af Amer 64 Est GFR (MDRD) Non-Af 53 L BUN/Creatinine Ratio 17.1 Glucose 289 H Calcium 8.9 Troponin I High Sens 10 11 Radiography Diagnostic Testing: Clinical Impression(s) from Imaging Studies Chest X-Ray 06/12/24 00:13 IMPRESSION: No acute intrathoracic abnormality. Electronically Signed: Olya Cottrell MD at 1:18 EDT , 1 view chest x-ray my interpretation is normal. Rhythm Strip Rhythm Strip: Sinus Rhythm Rate: 100 Ectopy: None EKG Initial EKG: Attestation: I personally reviewed and interpreted this EKG as follows: Interpretation: Sinus Rhythm and No Acute Injury Pattern Comments: leftward axis; poor R wave progression Prior EKG tracings: available for review Prior: Unchanged Discharge Plan Triage Chief Complaint: Chest Pain ED Provider: Adebayo Camp Dx/Rx/DC Orders Clinical Impression: Chest pain, unspecified Instructions: ED Chest Pain, Noncardiac Prescriptions: No Action pantoprazole 40 mg tablet,delayed release (DR/EC) 40 mg PO DAILY ranolazine 500 mg tablet extended release 12 hr 500 mg PO BID Qty: 60 11RF midodrine 10 mg tablet 10 mg PO BID rizatriptan 10 tablet 10 mg PO PRN Patient Comments: metoprolol succinate 25 mg Tablet Extended Release 24 Hr 25 mg PO DAILY Qty: 30 2RF atorvastatin 40 mg tablet 40 mg PO QHS Qty: 30 2RF quetiapine 25 mg tablet 37.5 mg PO QHS lorazepam 0.5 mg tablet 0.5 mg PO Q12H fenofibrate 50 mg Capsule 50 mg PO QHS acetaminophen 325 mg Tablet 650 mg PO Q6H PRN PRN (Reason: Pain 1-10 Or Fever >100.7) Qty: 0 0RF melatonin 3 mg Tablet 3 mg PO QHS PRN PRN (Reason: Insomnia) Qty: 0 0RF potassium chloride 20 mEq Tablet,Er Particles/Crystals 20 meq PO 1XD Qty: 0 0RF buprenorphine 10 mcg/hour patch weekly 1 patch topical QWEEK Rx Instructions: FRIDAYS Trulicity 1.5 mg/0.5 mL pen injector 1.5 mg subcut Q7D Rx Instructions: MONDAYS levothyroxine 175 mcg tablet 175 mcg PO DAILY ondansetron HCl 4 mg tablet 4 mg PO Q8H PRN PRN (Reason: nausea and vomiting) nystatin [Nyamyc] 100,000 unit/gram powder 1 applic topical BID loperamide [Anti-Diarrheal (loperamide)] 2 mg capsule 2 mg PO Q6H PRN (Reason: loose stool) insulin lispro [Humalog KwikPen Insulin] 100 unit/mL Insulin Pen 12 unit subcut TIDAC insulin glargine-yfgn 100 unit/mL (3 mL) Insulin Pen 35 unit subcut QHS Qty: 0 0RF insulin glargine-yfgn 100 unit/mL (3 mL) Insulin Pen 35 unit subcut BREAKFAST Qty: 0 0RF Eliquis 5 mg Tablet 10 mg PO BID Qty: 0 0RF sennosides-docusate sodium [Stool Softener-Stimulant Laxat] 8.6-50 mg Tablet 2 tab PO BID PRN PRN (Reason: Constipation) Qty: 0 0RF Primary Care Provider: Lizet Linares Referrals: Jarred Lopez MD [Non-Staff] - As soon as possible Print Language: Mexican Disposition Disposition: Home, Self Care
[2024-06-12 00:34] LABS: Absolute Lymphocyte Count 2.33 X10^3/uL (0.83-4.51); Absolute Neutrophil Count 4.1 X10^3/uL (2.0-7.7); Basophil# 0.04 X10^3/uL; Basophil% 0.6 % (0-1); Eosinophil# 0.09 X10^3/uL; Eosinophils% 1.3 % (0-5); Hematocrit 35.7 % (37-47); Hemoglobin 11.3 g/dL (12.0-15.0); Lymphocyte # 2.33 X10^3/ul (0.83-4.51); Lymphocyte % 33.4 % (19-41); Mean Corp Hgb Conc 31.7 g/dL (32-36); Mean Corpuscular Hgb 28.2 pg (27.0-32.0); Mean Platelet Vol. 9.6 fl (6.2-12.0); Monocyte# 0.35 X10^3/uL; NRBC Flagged by Analyzer 0 % (0-5); Neutrophil # 4.14 X10^3/uL (2.7-7.7); Neutrophil % 59.3 % (47-70); Platelet Count 366 K/mm3 (150-450); RBC Distribution Width CV 14.2 % (11.6-14.6); RBC Distribution Width SD 45.5 fl (35.1-43.9); Red Blood Count 4.01 M/mm3 (4.2-5.4)
[2024-06-12 00:46] LABS: Anion Gap 8 (5-15); BUN 19 mg/dL (7-18); BUN/Creat Ratio 17.1 RATIO (10-20); Calcium,Total 8.9 mg/dL (8.5-10.1); Chloride 102 mmol/L (98-107); Creatinine, Serum 1.11 mg/dL (0.55-1.02); EST Glomerular Filtration Rate 53 mL/min (>60); Est Glom Filt Rate - Afr Amer 64 mL/min (>60); Estimated Creatinine Clearance 51.48 ml/min; Glucose 289 mg/dL (74-106); Potassium 4.4 mmol/L (3.5-5.1); Sodium Level 136 mmol/L (136-145); Troponin-I HS (w/2H Reflex) 10 pg/mL (3.0-54.0)
[2024-06-12 00:52] VITALS: BP 135/69; PULSE 92; RESP 16; O2SAT 96
[2024-06-12] MEDS: Ondansetron 4 MG/2 ML Vial IV (00:55)
[2024-06-12] MEDS: Mag /Aluminum/Simeth WCH UDC 30 ML ORAL.SUSP PO (00:55)
[2024-06-12] MEDS: Lidocaine 2% Viscous15 ML UDC 15 ML PO (00:55)
[2024-06-12 02:00] VITALS: BP 112/54; PULSE 89; RESP 15; O2SAT 95
[2024-06-12 02:24] LABS: Reflex Troponin-HS? (from REC) Y
[2024-06-12] MEDS: Morphine 4 MG/ML Syringe IV (02:50)
[2024-06-12 03:00] VITALS: BP 112/98; PULSE 60; RESP 14; O2SAT 96
[2024-06-12 03:03] LABS: Troponin-I HS 11 pg/mL (3.0-54.0)
[2024-06-12 04:18] VITALS: BP 112/98; PULSE 60; RESP 14; TEMP 36.7; O2SAT 96
== END 2024-06-12 03:55 | disposition home or self-care (01) ==
PROVIDERS: Emergency Provider Emergency Medicine; PCP Internal Medicine; Visit Provider Emergency Medicine
DX: R07.9 Chest pain, unspecified (principal); E11.22 Type 2 diabetes mellitus with diabetic chronic kidney disease; N18.30 Chronic kidney disease, stage 3 unspecified; F41.9 Anxiety disorder, unspecified; I12.9 Hypertensive chronic kidney disease with stage 1 through stage 4 chronic kidney disease, or unspecified chronic kidney disease; Z87.891 Personal history of nicotine dependence; M54.9 Dorsalgia, unspecified; E78.5 Hyperlipidemia, unspecified; Z86.711 Personal history of pulmonary embolism; E03.9 Hypothyroidism, unspecified; Z90.49 Acquired absence of other specified parts of digestive tract; Z90.710 Acquired absence of both cervix and uterus; R94.31 Abnormal electrocardiogram [ECG] [EKG]
CPT/HCPCS: 71045; 80048; 84484; 85025; 93005; 96374; 96375; 99284; A4216; J2405

== ENCOUNTER → 2024-06-16 05:00 | Outpatient (REF) | payer MEDICARE, MEDICAID, SELFPAY ==
[2024-06-16 07:05] LABS: Absolute Lymphocyte Count 2.68 X10^3/uL (0.83-4.51); Absolute Neutrophil Count 3.4 X10^3/uL (2.0-7.7); Basophil# 0.05 X10^3/uL; Basophil% 0.8 % (0-1); Eosinophil# 0.11 X10^3/uL; Eosinophils% 1.7 % (0-5); Hematocrit 31.8 % (37-47); Lymphocyte # 2.68 X10^3/ul (0.83-4.51); Lymphocyte % 40.4 % (19-41); Mean Corp Hgb Conc 31.4 g/dL (32-36); Mean Corpuscular Hgb 27.5 pg (27.0-32.0); Mean Corpuscular Volume 87.6 fL (81-99); Mean Platelet Vol. 9.7 fl (6.2-12.0); Monocyte# 0.38 X10^3/uL; Monocyte% 5.7 % (0-10); NRBC Flagged by Analyzer 0 % (0-5); Neutrophil # 3.39 X10^3/uL (2.7-7.7); Neutrophil % 51.1 % (47-70); Platelet Count 345 K/mm3 (150-450); RBC Distribution Width SD 44.6 fl (35.1-43.9); Red Blood Count 3.63 M/mm3 (4.2-5.4); White Blood Count 6.6 K/mm3 (4.4-11.0)
[2024-06-16 07:07] LABS: Anion Gap 6 (5-15); BUN 20 mg/dL (7-18); BUN/Creat Ratio 19.2 RATIO (10-20); Calcium,Total 8.5 mg/dL (8.5-10.1); Chloride 106 mmol/L (98-107); Creatinine, Serum 1.04 mg/dL (0.55-1.02); EST Glomerular Filtration Rate 57 mL/min (>60); Est Glom Filt Rate - Afr Amer 69 mL/min (>60); Glucose 246 mg/dL (74-106); Potassium 3.8 mmol/L (3.5-5.1); Sodium Level 138 mmol/L (136-145)
== END ==
LOC: OLS.WHLEAS 05:00
PROVIDERS: PCP Internal Medicine; Visit Provider Internal Medicine
DX: E11.22 Type 2 diabetes mellitus with diabetic chronic kidney disease (principal); N18.9 Chronic kidney disease, unspecified
CPT/HCPCS: 36415; 80048; 85025

== ENCOUNTER 2024-06-20 11:32 | Day surgery (SDC) | payer MEDICARE, MEDICAID, SELFPAY ==
[2024-06-20] VITALS (8 sets, daily range): BP systolic 99–140; BP diastolic 59–66; PULSE 75–82; RESP 16–20; TEMP 36.1–36.6; O2SAT 95–100; BMI 34.4
--- NOTE | 2024-06-20 | IMM_PTH ---
PATIENT: SURI OCONNOR LOC: EN U#:[id number] AGE/SX: 58/F ROOM: RE06/20/[address]: Dr. Napoleon Bennett DO : 1965 BED: DIS: 06/20/2024 SPEC #: [id number] RECD: 06/23/24 09:39 STATUS: JAZMIN REQ #: [id number] MAGGI: 06/20/24 00:[address]: Napoleon Bennett DEPT: IMMUNOHISTOCHEMISTRY RECD BY: Kai Sanchez ENTERED: 06/23/24 09:39 SP TYPE: IMMUNO OT DR: Dr. Lizet Linares MD Tissues: B - Esophagus, NOS Procedures: P53 (initial) KI-67 (add) PHYSICIAN & INSTITUTION [place] [id number] SPECIMEN INFORMATION: Tissue Source: B- Distal esophagus Clinical Info: Nausea/vomiting Specimen Number: [id number] CPT code: 58249,17775 METHODOLOGY: Deparaffinized sections of prefer/formalin-fixed tissue or PAP/DQ stained slides are incubated with monoclonal/polyclonal antibodies/oligonucleotide probes. Localization is made via biotin free immunoperoxidase method. Appropriate controls are performed and reacted as expected. Results on target cell population are indicated in the following table: RESULTS: ANTIBODY / CLONE RESULT Block B P53 (DO-7) negative (null pattern) Ki-67 (30-9) positive, low These tests were developed and their performance characteristics determined by [facility]. They may not have been cleared or approved by the U.S. Food and Drug Administration. The FDA has determined that such clearance or approval is not necessary. The above immunohistochemical/dualISH markers are ordered and reviewed by the Pathologist. INTERPRETATION: B. Distal esophagus, biopsy: Negative for dysplasia. FREDRICK/ 06/27/2024
[2024-06-20] MEDS: Lactated Ringers 1,000 ML 15 ML IV (12:05)
[2024-06-20 12:56] LABS: Bedside Glucose 110 mg/dL (74-106)
--- NOTE | 2024-06-20 13:00 | PRE.ANES_ITS ---
ASA Classification* ASA Classification ASA Classification: 3 Assessment & Plan Anesthesia* Anesthesia Assessment Anesthesia Assessment: Discussed sedation and/or anesthesia options, risks, benefits, and alternatives with patient/parents/legal guardian/POA. Questions invited. The patient/parents/legal guardian/POA seems to understand and agrees to proceed with anesthesia plan. Reviewed the physical assessment, medical history, allergy history and patient home medications list prior to surgery/procedure/anesthetic and documented any changes. Performed airway and anesthesia risk assessments. Anesthesia Type Anesthesia Type: MAC History Source History Obtained from:: Patient and Chart Anesthesia Focused Assessment* Temperature: 96.9 F Pulse Rate: 75 Blood Pressure: 140/62 Respiratory Rate: 18 Pulse Ox: 100 Oxygen Delivery Method: Room Air Airway Assessment Mouth opens: >3 cm Mallampati Score: I Teeth Condition: Chipped/Broken (Chipped tooth #9. Poor dentition. Nothing moving) Neck Range of motion (ROM): Limited ROM (Decreased extension) Focused Labs Anesthesia Preop lab: CBC WBC 6.6 K/mm3 (4.4-11.0) 06/16/24 05:00 RBC 3.63 M/mm3 (4.2-5.4) L 06/16/24 05:00 Hgb 10.0 g/dL (12.0-15.0) L 06/16/24 05:00 Hct 31.8 % (37-47) L 06/16/24 05:00 Plt Count 345 K/mm3 (150-450) 06/16/24 05:00 CHEMISTRY Potassium 3.8 mmol/L (3.5-5.1) 06/16/24 05:00 Sodium 138 mmol/L (136-145) 06/16/24 05:00 Magnesium 2.1 mg/dL (1.6-2.6) 11/20/23 06:31 Phosphorus 2.3 mg/dL (2.5-4.9) L 11/20/23 06:31 BUN 20 mg/dL (7-18) H 06/16/24 05:00 Creatinine 1.04 mg/dL (0.55-1.02) H 06/16/24 05:00 Glucose 246 mg/dL (74-106) H 06/16/24 05:00 POC Glucose 110 mg/dL (74-106) H 06/20/24 12:09 TSH 0.05 uIU/mL (0.358-3.74) L 05/17/24 05:50 COAG PT 13.1 SECONDS (11.7-14.9) 05/20/22 22:24 Urine Test Negative Negative 04/04/19 19:15 Pre-Assessment Diagnosis/Proposed Procedure Planned Operative Procedure(s): egd and colonoscopy Anesthesia History 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 When Was Last Pacemaker Check QUESTION #4 FULL TEXT: You/Your Family Experience fever (hyperthermia) with Anesthesia Last Oral Intake Last Oral intake: Last Oral Intake NPO since 08:00 06/20/24 12:05 Meds taken in AM with sips of water? Meds patient instructed to take am of surgery Any additional information?: Yes Meds taken in AM with sips of water?: Yes PONV PONV - foreign exchange clerk: PONV - foreign exchange clerk Female Yes 06/20/24 12:11 HX of Motion Sickness No 06/20/24 12:11 HX of N/V After Surgery No 06/20/24 12:11 Non-Smoker Yes 06/20/24 12:11 Duration of Surgery greater No 06/20/24 12:11 than 60 minutes Number of Risk Factors 2 06/20/24 12:11 PONV Score Moderate Risk 06/20/24 12:11 Height & Weight Height & Weight: Anesthesia: Height & Weight Height 5 ft 06/20/24 12:05 Weight: 80 kg 06/20/24 12:05 Body Mass Index (BMI) 34.4 06/20/24 12:05 Respiratory Assessment Respiratory Assessment - foreign exchange clerk: Respiratory Tract Infection Hx - foreign exchange clerk Hx Respiratory Tract Infection No 06/20/24 12:11 STOP Sleep Apnea STOP Sleep Apnea - foreign exchange clerk: STOP Sleep Apnea - foreign exchange clerk Hx Hypertension Yes 06/20/24 12:11 Hx Sleep Apnea Yes 06/20/24 12:11 CPAP No 06/20/24 12:11 BIPAP No 06/20/24 12:11 Do you snore loudly (louder than talking or can be heard Do you often feel tired/ fatigued/ sleepy during daytime? Has anyone observed you stop breathing during sleep? STOP Results Positive 06/20/24 12:11 QUESTION #5 FULL TEXT : Do you snore loudly (louder than talking or can be heard through closed doors)? 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 Specify any problems Hx of Preganancy in last 3 No 06/20/24 12:11 Months Nurse Filling Out Transfusion CJ 06/20/24 12:11 & Questions: Date: 06/20/24 06/20/24 12:11 Time: 12:12 06/20/24 12:11 Patient unable to answer at this time (ie. confused, unrespo /Reproduction History /Reproductive History - foreign exchange clerk: /Reproductive Hx- foreign exchange clerk Hx Now No 06/20/24 12:11 Gestational Age (in weeks): EDC: Hx Hx Para Hx Section SAB No 06/20/24 12:11 Active Medications Active Medications: Current Medications Generic Name Dose Route Start Last Admin Trade Name Freq PRN Reason Stop Dose Admin Lactated Ringer's 1,000 mls @ 15 mls/hr 06/20/24 11:45 06/20/24 12:05 IV 15 mls/hr .Q48H HALEIGH Administration PFSH Medical History Anxiety and depression Diabetes mellitus, type 2 Pulmonary emboli Parathyroid disease History of left heart catheterization (LHC) (~05/21/22) CKD (chronic kidney disease) stage 3, GFR 30-59 ml/min Essential hypertension Orthostatic hypotension Hypothyroidism Chronic back pain Obesity (BMI 35.0-39.9 without comorbidity) Normochromic normocytic anemia Hyperlipidemia Former smoker Opiate abuse, continuous Intervertebral disc disorder with radiculopathy of lumbar region Carpal tunnel syndrome Kidney stones Thyroid disease Migraines Stomach ulcer HTN (hypertension) Home Medications ?Medication ?Instructions ?Recorded ?Last Taken ?Type rizatriptan 10 mg tablet 10 mg PO PRN Migraine Symptoms 12/27/17 04/03/24 History atorvastatin 40 mg tablet 40 mg PO QHS #30 tabs 05/21/22 06/19/24 Rx metoprolol succinate 25 mg 25 mg PO DAILY #30 tabs 05/21/22 06/18/24 Rx tablet,extended release 24 hr pantoprazole 40 mg tablet,delayed 40 mg PO DAILY 06/12/22 06/19/24 History release ranolazine 500 mg tablet,extended 500 mg PO BID #60 tabs 06/12/22 06/19/24 Rx release,12 hr midodrine 10 mg tablet 10 mg PO BID 09/09/22 06/20/24 History fenofibrate 50 mg capsule 50 mg PO QHS 01/29/23 06/19/24 History lorazepam 0.5 mg tablet 0.5 mg PO Q12H anxeity 01/29/23 12/31/23 History quetiapine 25 mg tablet 37.5 mg PO QHS 01/29/23 06/19/24 History acetaminophen 325 mg tablet 650 mg (2 x 325 mg) PO Q6H PRN PRN 11/24/23 06/16/24 Rx Pain 1-10 Or Fever >100.7 #0 tabs melatonin 3 mg tablet 3 mg PO QHS PRN PRN Insomnia #0 11/24/23 06/19/24 Rx tabs potassium chloride 20 mEq 20 meq PO 1XD #0 tabs 11/24/23 06/19/24 Rx tablet,extended release(part/cryst) apixaban 5 mg tablet (Eliquis) 10 mg (2 x 5 mg) PO BID #0 tabs 01/05/24 06/19/24 Rx insulin glargine-yfgn 100 unit/mL 35 unit (0.35 mL) subcut BREAKFAST 01/05/24 06/19/24 Rx (3 mL) subcutaneous pen #0 mL insulin glargine-yfgn 100 unit/mL 35 unit (0.35 mL) subcut QHS #0 mL 01/05/24 06/19/24 Rx (3 mL) subcutaneous pen sennosides 8.6 mg-docusate sodium 2 tab PO BID PRN PRN Constipation 01/05/24 06/19/24 Rx 50 mg tablet (Stool #0 tabs Softener-Stimulant Laxative) buprenorphine 10 mcg/hour weekly 1 patch topical QWEEK 03/24/24 06/13/24 History transdermal patch dulaglutide 1.5 mg/0.5 mL 1.5 mg subcut Q7D 03/24/24 06/19/24 History subcutaneous pen injector (Trulicity) levothyroxine 175 mcg tablet 175 mcg PO DAILY 03/24/24 06/19/24 History ondansetron HCl 4 mg tablet 4 mg PO Q8H PRN PRN nausea and 03/24/24 05/29/24 History vomiting insulin lispro 100 unit/mL 12 unit subcut TIDAC 04/02/24 06/19/24 History subcutaneous pen (Humalog KwikPen (U-100) Insulin) loperamide 2 mg capsule 2 mg PO Q6H PRN loose stool 04/02/24 03/08/24 History (Anti-Diarrheal (loperamide)) nystatin 100,000 unit/gram topical 1 applic topical BID 04/02/24 Unknown History powder (Nyamyc) fluticasone propionate 50 2 spray intranasal DAILY 06/20/24 06/19/24 History mcg/actuation nasal spray,suspension (Aller-Scar) furosemide 20 mg tablet 20 mg PO DAILY 06/20/24 06/19/24 History nitroglycerin 0.4 mg sublingual 0.4 mg sublingual Q5M PRN chest 06/20/24 Unknown History tablet pain promethazine 25 mg tablet 25 mg PO Q6H PRN nausea and 06/20/24 Unknown History vomiting Allergy/AdvReac Type Severity Reaction Status Date / Time celecoxib (From Celebrex) Allergy Itching Verified 06/11/24 23:52 ciprofloxacin (From Cipro) Allergy Swelling Verified 06/11/24 23:52 ciprofloxacin HCl (From Allergy Swelling Verified 06/11/24 23:52 Cipro) codeine Allergy Hives Verified 06/11/24 23:52 ibuprofen Allergy Hives Verified 06/11/24 23:52 naproxen Allergy Hives Verified 06/11/24 23:52 Penicillins Allergy Hives Verified 06/11/24 23:52 tramadol HCl (From Ultram) Allergy Hives Verified 06/11/24 23:52 ketorolac (From Toradol) AdvReac Swelling Verified 06/11/24 23:52 Family History Mother Cancer CVA (cerebral vascular accident) Hypertension Heart disease Myocardial infarction Diabetes Father Asthma Surgical History History of cholecystectomy S/P trigger finger release H/O: hysterectomy Hx of section Social History household members: other details: currently living in a NH for therapy for chronic back pain housing: [facility] Smoking Status: Former smoker Tobacco: How many years used: 46 how long ago did patient quit smoking: Quit 09/2021, smoked 1 ppd since teen until quit. alcohol intake: never substance use type: other details: History of chronic opiate use. Denies abuse. Review of Systems (Anesthesia) ROS Narrative System reviewed and no additional complaints, except as documented.
--- NOTE | 2024-06-20 13:00 | EGD_PTH ---
PATIENT: SURI OCONNOR LOC: EN U#:[id number] AGE/SX: 58/F ROOM: RE06/20/[address]: Dr. Napoleon Bennett DO : 1965 BED: DIS: 06/20/2024 SPEC #: [id number] RECD: 06/20/24 18:12 STATUS: JAZMIN REBronwyn #: [id number] MAGGI: 06/20/24 13:[address]: Napoleon Bennett DEPT: SURGICAL PATHOLOGY RECD BY: Micheline Leigh ENTERED: 06/21/24 11:49 SP TYPE: EGD BIOPSY OT DR: Dr. Lizet Linares MD Tissues: A - Duodenum, NOS B - Esophagus, NOS C - Transverse colon D - Ascending colon Procedures: Special Stain Group I Surgery Specimen Level IV Alcian Blue/PAS (control) HEADER OPERATION: Colonoscopy with polypectomy, EGD with biopsy PRE-OP DIAGNOSIS: Nausea/vomiting TISSUE SUBMITTED: A- Duodenum biopsy, B- Distal esophagus, C- Transverse colon polyp, D- Ascending colon polyp x3 MICROSCOPIC DIAGNOSIS A. Duodenum, biopsy: Fragments of duodenal mucosa, no pathologic diagnosis. B. Distal esophagus, biopsy: Fragments of gastroesophageal mucosa with focal intestinal metaplasia (goblet cell metaplasia), consistent with Yun's esophagus. Acute and chronic inflammation and changes consistent with gastroesophageal reflux disease. Negative for dysplasia. See comment. C. Transverse colon polyp, polypectomy: Fragments of tubular adenoma. D. Ascending colon polyp x3, polypectomy: Fragments of tubular adenoma. / 06/22/2024 COMMENT B. Alcian blue/PAS stain with matched control is used in the evaluation of the specimen. Immunohistochemistry ([id number]) for P53 and Ki-67 will be performed and results will be reported separately. MICROSCOPIC DESCRIPTION Slides are reviewed. GROSS DESCRIPTION A. Received in fixative is one container labeled with the patient's name and designated Duodenum biopsy. The specimen consists of multiple irregular fragments of light carreno soft tissue that in aggregate measure 0.8 x 0.3 x 0.1 cm. The specimen is totally submitted in one cassette. B. Received in fixative is one container labeled with the patient's name and designated Distal esophagus biopsy. The specimen consists of multiple irregular fragments of light carreno soft tissue that in aggregate measure 0.5 x 0.4 x 0.1 cm. The specimen is totally submitted in one cassette. C. Received in fixative is one container labeled with the patient's name and designated Transverse colon polyp. The specimen consists of multiple irregular fragments of light carreno soft tissue that in aggregate measure 1.0 x 0.5 x 0.1 cm. The specimen is totally submitted in one cassette. D. Received in fixative is one container labeled with the patient's name and designated Ascending colon polyp x3. The specimen consists of multiple irregular fragments of light carreno soft tissue that in aggregate measure 1.2 x 0.3 x 0.1 cm. The specimen is totally submitted in one cassette. SJ.mr 06/21/2024 TC:1 CPT:[id number]
--- NOTE | 2024-06-20 13:57 | PCM.HP.BLA ---
History and Physical Date of Admission: 06/20/24 SURI OCONNOR, is a 58 F who presents to the office today for diarrhea for the past 3-4 months. She noticed that she started having these symptoms after starting the injectable medication Trulicity. She is vomiting 3-4 times a day with abdominal pain. She has no appetite. She does not notice it happening right after eating food but rather at random points through out the day. She says she has been gaining weight. She denies heartburn, weight loss, diarrhea and constipation. EGD 2013: Gastritis, gastric ulcers, distal esophagitis, small hiatal hernia. No colitis seen. Two polyps in the descending colon, 1 proximal and 1 distal, both removed with snare cautery and few diverticula. ROS Const Constitutional: Positive for fatigue, headache(s), weakness and weight change; No fever(s) ENT ENT: Positive for headache(s); No difficulty swallowing Cardio Cardiology: Positive for leg pain with exertion Gastro GI: Positive for abdominal pain, bloating, excessive flatus, nausea/dyspepsia and vomiting; No belching, change in bowel habits, change in stool character, coffee ground emesis, constipation, cramping, diarrhea, heartburn, difficulty swallowing, feeling full early, incontinent of stools, Vomiting blood/hematemesis, Blood in stool, loose stools, Black,tarry stools, pain with swallowing or other Musc Musculoskeletal: Positive for abnormal gait, joint pain, back pain, joint swelling, muscle weakness, numbness, stiffness, tingling, Arthritis, sciatica, leg pain at night and leg pain with exertion Skin Skin: Positive for dry skin, lesions and itchy eyes; No yellowing of the eye Neuro Neurology: Positive for abnormal gait, weakness, headache(s), numbness, tingling and Increased tone in limbs Psych Psychiatric: Positive for anxiety and Positive for depression Endo Endocrine: Positive for fatigue and weight change Aller/Imm Allergy/Immunologic: Positive for itchy eyes Isma/Lymp Hematologic/Lymphatic: Positive for easy bleeding and easy bruising Exam Const General: cooperative and comfortable Nutritional Appearance: average body habitus and well nourished HENMT Head: normal to inspection Ears: hearing grossly normal bilaterally Nose: external nose normal Face and sinus: normal facial exam Mouth: oral mucosae normal Throat: posterior oropharynx normal Eyes General: appearance normal, both eyes and all related structures Neck Neck: normal visual inspection Chest Chest palpation & inspection: normal inspection of the chest and normal palpation of entire chest wall Resp Effort & Inspection: normal respiratory effort Auscultation: Bilateral: Clear to Auscultation Cardio Palpation: normal PMI Rate: regular rate Rhythm: regular rhythm GI Inspection: normal to inspection Auscultation: normal bowel sounds Percussion: normal to percussion Palpation: no hepatosplenomegaly Skin General: no rashes or lesions noted Neuro General: patient alert Extrem General: normal to inspection Psych Affect: normal affect Assessment and Plan Assessment and Plan (1) Nausea and vomiting: Plan: Patient is here for establishment with [facility] for nausea and vomiting for the past 3-4 months. Differential diagnosis includes gastroparesis, gastritis or GERD -Explained to patient the side effect of delayed gastric emptying with GLP-1 medications. Patient will talk with PCP about changing Trulicity to a different medication. -She will be scheduled for colonoscopy since her last one was over 10 years ago with tubular adenomas -She will also have EGD to rule out gastritis -She is taking Phenergan for nausea. She does not need a refill I have examined the patient and the H&P has been reviewed. There are no clinical changes since date of exam.
--- NOTE | 2024-06-20 14:36 | OP.EGD_ITS ---
Patient Name: Terrance Brar Procedure Date: 06/20/2024 1:59 PM Date of : 1965 Age: 58 Procedure: Upper GI endoscopy Indications: Epigastric abdominal pain, Functional Dyspepsia Providers: Napoleno Bennett DO Medicines: Monitored Anesthesia Care Patient Profile: This is a 58 year old female. Refer to note in patient chart for documentation of history and physical. Patient has symptoms of chronic epigastric abdominal pain. Complications: No immediate complications. Estimated blood loss: None. Procedure: Pre-Anesthesia Assessment: - Prior to the procedure, a History and Physical was performed, and patient medications and allergies were reviewed. The patient is competent. The risks and benefits of the procedure and the sedation options and risks were discussed with the patient. All questions were answered and informed consent was obtained. Patient identification and proposed procedure were verified by the physician in the pre-procedure area. Mental Status Examination: alert and oriented. Airway Examination: normal oropharyngeal airway and neck mobility. Respiratory Examination: clear to auscultation. CV Examination: normal. Prophylactic Antibiotics: The patient does not require prophylactic antibiotics. Prior Anticoagulants: The patient has taken no anticoagulant or antiplatelet agents except for NSAID medication. ASA Grade Assessment: II - A patient with mild systemic disease. After reviewing the risks and benefits, the patient was deemed in satisfactory condition to undergo the procedure. The anesthesia plan was to use monitored anesthesia care (MAC). Immediately prior to administration of medications, the patient was re-assessed for adequacy to receive sedatives. The heart rate, respiratory rate, oxygen saturations, blood pressure, adequacy of pulmonary ventilation, and response to care were monitored throughout the procedure. The physical status of the patient was re-assessed after the procedure. After obtaining informed consent, the endoscope was passed under direct vision. Throughout the procedure, the patient's blood pressure, pulse, and oxygen saturations were monitored continuously. The Colonoscope was introduced through the mouth, and advanced to the second part of duodenum. The upper GI endoscopy was accomplished without difficulty. The patient tolerated the procedure well. Scope In: 2:10:49 PM Scope Out: 2:15:07 PM Total Procedure Duration Time 0 hours 4 minutes 18 seconds Findings: Non-severe esophagitis with no bleeding was found 37 to 39 cm from the incisors. Biopsies were taken with a cold forceps for histology. Verification of patient identification for the specimen was done. Estimated blood loss was minimal. There was also mild esophageal candidiasis seen. No gross lesions were noted in the stomach. A benign-appearing, intrinsic moderate stenosis was found at the pylorus. This was traversed. Patchy mildly erythematous mucosa without active bleeding and with no stigmata of bleeding was found in the duodenal bulb. Biopsies were taken with a cold forceps for histology. Verification of patient identification for the specimen was done. Estimated blood loss was minimal. Impression: - Non-severe non-erosive esophagitis with no bleeding. Biopsied. Mild esophageal candidiasis - No gross lesions in the stomach. - Gastric stenosis was found at the pylorus. - Erythematous duodenopathy. Biopsied. Recommendation: - Discharge patient to home. - Resume previous diet. - Continue present medications. - Await pathology results. - Nystatin swish and swallow x 7 days Procedure Code(s): --- Professional --- 48105, Esophagogastroduodenoscopy, flexible, transoral; with biopsy, single or multiple CPT copyright 2021 [employer]. All rights reserved. The codes documented in this report are preliminary and upon vacuum system tester review may be revised to meet current compliance requirements. Napoleon Bennett DO 06/20/2024 2:36:23 PM This report has been signed electronically. Number of Addenda: 0 Note Initiated On: 06/20/2024 1:59 PM
--- NOTE | 2024-06-20 14:36 | PCM.POST.ANE ---
Anesthesia: Postop Eval I Current Vital Signs Temperature: 97.1 F Pulse Rate: 79 Blood Pressure: 99/60 Respiratory Rate: 20 Pulse Ox: 95 Oxygen Delivery Method: Room Air Assessment Airway patent: Yes Spontaneous unlabored respirations: Yes Mental status: Awake nausea: No Vomiting: No Anesthesia Complication: No Fluid Hydration Crystalloid volume administer (ml): 500 Total IV fluid infused: 500 Progress Note Anesthesia document: Postop Eval 1 completed: Yes
--- NOTE | 2024-06-20 14:37 | OP.CCLET_ITS ---
06/20/2024 Jarred Lopez Re : Upper GI endoscopy procedure for Terrance Brar Dear John This procedure was performed on Thursday, June 20, 2024. My impressions and recommendations are as follows: Impressions : - Non-severe non-erosive esophagitis with no bleeding. Biopsied. Mild esophageal candidiasis - No gross lesions in the stomach. - Gastric stenosis was found at the pylorus. - Erythematous duodenopathy. Biopsied. Recommendations : - Discharge patient to home. - Resume previous diet. - Continue present medications. - Await pathology results. - Nystatin swish and swallow x 7 days My findings are described in the full procedure note, which is enclosed. If I can be of further assistance, please feel free to contact me at . Sincerely, Napoleon Bennett, 06/20/2024 2:36:23 PM This report has been signed electronically.
--- NOTE | 2024-06-20 14:39 | OP.COLON_ITS ---
Patient Name: Terrance Brar Procedure Date: 06/20/2024 2:15 PM Date of : 1965 Age: 58 Procedure: Colonoscopy Indications: Screening for colorectal malignant neoplasm Providers: Napoleon Bennett DO Medicines: Monitored Anesthesia Care Patient Profile: This is a 58 year old female. Refer to note in patient chart for documentation of history and physical. Patient has symptoms of chronic epigastric abdominal pain. Last Colonoscopy: date unknown. Unable to locate last colonoscopy report. Complications: No immediate complications. Procedure: Pre-Anesthesia Assessment: - Prior to the procedure, a History and Physical was performed, and patient medications and allergies were reviewed. The patient is competent. The risks and benefits of the procedure and the sedation options and risks were discussed with the patient. All questions were answered and informed consent was obtained. Patient identification and proposed procedure were verified by the physician in the pre-procedure area. Mental Status Examination: alert and oriented. Airway Examination: normal oropharyngeal airway and neck mobility. Respiratory Examination: clear to auscultation. CV Examination: normal. Prophylactic Antibiotics: The patient does not require prophylactic antibiotics. Prior Anticoagulants: The patient has taken no anticoagulant or antiplatelet agents except for NSAID medication. ASA Grade Assessment: II - A patient with mild systemic disease. After reviewing the risks and benefits, the patient was deemed in satisfactory condition to undergo the procedure. The anesthesia plan was to use monitored anesthesia care (MAC). Immediately prior to administration of medications, the patient was re-assessed for adequacy to receive sedatives. The heart rate, respiratory rate, oxygen saturations, blood pressure, adequacy of pulmonary ventilation, and response to care were monitored throughout the procedure. The physical status of the patient was re-assessed after the procedure. After I obtained informed consent, the scope was passed under direct vision. Throughout the procedure, the patient's blood pressure, pulse, and oxygen saturations were monitored continuously. The Colonoscope was introduced through the anus and advanced to the cecum, identified by appendiceal orifice and ileocecal valve. The colonoscopy was performed without difficulty. The patient tolerated the procedure well. The quality of the bowel preparation was fair. The ileocecal valve, appendiceal orifice, and rectum were photographed. Scope In: 2:17:46 PM Scope Withdrawal Time 0 hours 2 minutes 21 seconds Scope Out: 2:26:03 PM Total Procedure Duration Time 0 hours 8 minutes 17 seconds Findings: The perianal and digital rectal examinations were normal. Multiple small and large-mouthed diverticula were found in the rectum, recto-sigmoid colon, sigmoid colon, descending colon, transverse colon and cecum. Four sessile polyps were found in the transverse colon and ascending colon. The polyps were 1 to 2 mm in size. These polyps were removed with a cold snare. Resection and retrieval were complete. Verification of patient identification for the specimen was done. Estimated blood loss was minimal. Impression: - Preparation of the colon was fair. - Diverticulosis in the rectum, in the recto-sigmoid colon, in the sigmoid colon, in the descending colon, in the transverse colon and in the cecum. - Four 1 to 2 mm polyps in the transverse colon and in the ascending colon, removed with a cold snare. Resected and retrieved. Recommendation: - Repeat colonoscopy in 6 months for surveillance. - Continue present medications. Procedure Code(s): --- Professional --- 20861, Colonoscopy, flexible; with removal of tumor(s), polyp(s), or other lesion(s) by snare technique CPT copyright 2021 [employer]. All rights reserved. The codes documented in this report are preliminary and upon prototype fabricator review may be revised to meet current compliance requirements. Napoleon Bennett DO 06/20/2024 2:38:50 PM This report has been signed electronically. Number of Addenda: 0 Note Initiated On: 06/20/2024 2:15 PM
--- NOTE | 2024-06-20 14:39 | OP.CCLET_ITS ---
06/20/2024 Jarred Lopez Re : Colonoscopy procedure for Terrance Zhongr John This procedure was performed on Thursday, June 20, 2024. My impressions and recommendations are as follows: Impressions : - Preparation of the colon was fair. - Diverticulosis in the rectum, in the recto-sigmoid colon, in the sigmoid colon, in the descending colon, in the transverse colon and in the cecum. - Four 1 to 2 mm polyps in the transverse colon and in the ascending colon, removed with a cold snare. Resected and retrieved. Recommendations : - Repeat colonoscopy in 6 months for surveillance. - Continue present medications. My findings are described in the full procedure note, which is enclosed. If I can be of further assistance, please feel free to contact me at . Sincerely, Napoleon Bennett, 06/20/2024 2:38:50 PM This report has been signed electronically.
--- NOTE | 2024-06-20 15:27 | SUR.PHASEII ---
verbal report called to inge mancera
--- NOTE | 2024-06-20 16:06 | POSTOPAN2_ITS ---
Anesthesia Postop Eval I Sum Postop Eval Completion status Anesthesia document: Postop Eval 1 completed: Yes Anesthesia Postop Eval I Summary Anesthesia Postop Eval I Summary: Anesthesia Postop Eval I: Assessment Summary Airway patent Yes 06/20/24 14:37 DIRECTOR [email or web address] Spontaneous unlabored Yes 06/20/24 14:37 DIRECTOR [email or web address] respirations Mental status Awake 06/20/24 14:37 DIRECTOR [email or web address] nausea No 06/20/24 14:37 DIRECTOR [email or web address] Vomiting No 06/20/24 14:37 DIRECTOR [email or web address] Anesthesia Postop Eval I: Fluid Summary Crystalloid volume administer 500 06/20/24 14:37 DIRECTOR [email or web address].JDEF (ml) Colloids volume administered ( ml) Blood Product volume administered (ml) Total IV fluid infused 500 06/20/24 14:37 DIRECTOR [email or web address] Anesthesia Postop Eval I: Summary Notes Anesthesia Complication No 06/20/24 14:37 DIRECTOR [email or web address].JDEF Anesthesia Complication Comment: Post-operative progress note Anesthesia: Postop Eval II Evaluation Mental status: Awake and Calm Pain Level: 0 nausea: No Vomiting: No Complications Anesthesia Complication: No
--- NOTE | 2024-06-20 16:06 | PCM.POSTANE2 ---
Anesthesia Postop Eval I Sum Postop Eval Completion status Anesthesia document: Postop Eval 1 completed: Yes Anesthesia Postop Eval I Summary Anesthesia Postop Eval I Summary: Anesthesia Postop Eval I: Assessment Summary Airway patent Yes 06/20/24 14:37 PULLEY MORTISER OPERATOR.[email or web address] Spontaneous unlabored Yes 06/20/24 14:37 PULLEY MORTISER OPERATOR.JDEF respirations Mental status Awake 06/20/24 14:37 PULLEY MORTISER OPERATOR.JDEF nausea No 06/20/24 14:37 PULLEY MORTISER OPERATOR.JDEF Vomiting No 06/20/24 14:37 PULLEY MORTISER OPERATOR.JDEF Anesthesia Postop Eval I: Fluid Summary Crystalloid volume administer 500 06/20/24 14:37 PULLEY MORTISER OPERATOR.JDEF (ml) Colloids volume administered ( ml) Blood Product volume administered (ml) Total IV fluid infused 500 06/20/24 14:37 PULLEY MORTISER OPERATOR.JDEF Anesthesia Postop Eval I: Summary Notes Anesthesia Complication No 06/20/24 14:37 PULLEY MORTISER OPERATOR.JDEF Anesthesia Complication Comment: Post-operative progress note Anesthesia: Postop Eval II Evaluation Mental status: Awake and Calm Pain Level: 0 nausea: No Vomiting: No Complications Anesthesia Complication: No
== END 2024-06-20 15:39 | disposition home or self-care (01) ==
LOC: EN 11:34 → AC 11:36
PROVIDERS: PCP Internal Medicine; Referring Provider Internal Medicine; Visit Provider Internal Medicine Gastroenterology
PROC: 0DJD8ZZ Inspection of Lower Intestinal Tract, Via Natural or Artificial Opening Endoscopic (ICD-10-PCS; CPT 45378; principal; 2024-06-20 12:55)
DX: K20.90 Esophagitis, unspecified without bleeding (principal); B37.81 Candidal esophagitis; R11.2 Nausea with vomiting, unspecified; Z90.49 Acquired absence of other specified parts of digestive tract; K57.90 Diverticulosis of intestine, part unspecified, without perforation or abscess without bleeding; R51.9 Headache, unspecified; F41.9 Anxiety disorder, unspecified; F32.A Depression, unspecified; D12.2 Benign neoplasm of ascending colon; D12.3 Benign neoplasm of transverse colon; R53.83 Other fatigue
CPT/HCPCS: 45385; 43239; 82962; 88305; 88312; 88341; 88342; J7120; J2405

== ENCOUNTER → 2024-06-23 05:00 | Outpatient (REF) | payer MEDICARE, MEDICAID, SELFPAY ==
[2024-06-23 08:48] LABS: Absolute Lymphocyte Count 2.55 X10^3/uL (0.83-4.51); Absolute Neutrophil Count 4.2 X10^3/uL (2.0-7.7); Basophil# 0.04 X10^3/uL; Basophil% 0.5 % (0-1); Eosinophil# 0.14 X10^3/uL; Eosinophils% 1.9 % (0-5); Hematocrit 31.6 % (37-47); Hemoglobin 10.2 g/dL (12.0-15.0); Lymphocyte # 2.55 X10^3/ul (0.83-4.51); Lymphocyte % 34.9 % (19-41); Mean Corp Hgb Conc 32.3 g/dL (32-36); Mean Corpuscular Hgb 28.3 pg (27.0-32.0); Mean Corpuscular Volume 87.5 fL (81-99); Mean Platelet Vol. 9.5 fl (6.2-12.0); Monocyte# 0.33 X10^3/uL; Monocyte% 4.5 % (0-10); NRBC Flagged by Analyzer 0 % (0-5); Neutrophil # 4.21 X10^3/uL (2.7-7.7); Neutrophil % 57.8 % (47-70); Platelet Count 320 K/mm3 (150-450); RBC Distribution Width CV 13.8 % (11.6-14.6); RBC Distribution Width SD 43.8 fl (35.1-43.9); Red Blood Count 3.61 M/mm3 (4.2-5.4); White Blood Count 7.3 K/mm3 (4.4-11.0)
[2024-06-23 09:18] LABS: Anion Gap 6 (5-15); BUN 13 mg/dL (7-18); BUN/Creat Ratio 14.5 RATIO (10-20); Calcium,Total 8.9 mg/dL (8.5-10.1); Chloride 105 mmol/L (98-107); EST Glomerular Filtration Rate 68 mL/min (>60); Est Glom Filt Rate - Afr Amer 82 mL/min (>60); Glucose 177 mg/dL (74-106); Potassium 3.8 mmol/L (3.5-5.1); Sodium Level 138 mmol/L (136-145)
== END ==
LOC: OLS.WHLEAS 05:00
PROVIDERS: PCP Internal Medicine; Visit Provider Internal Medicine
DX: E11.22 Type 2 diabetes mellitus with diabetic chronic kidney disease (principal); N18.9 Chronic kidney disease, unspecified
CPT/HCPCS: 36415; 80048; 85025

== ENCOUNTER → 2024-06-28 05:00 | Outpatient (REF) | payer MEDICARE, MEDICAID, SELFPAY ==
[2024-06-28 08:53] LABS: Thyroid Stim Hormone (TSH) 0.276 uIU/mL (0.358-3.740)
[2024-06-30 05:05] LABS: Anion Gap 8 (5-15); BUN 20 mg/dL (7-18); BUN/Creat Ratio 19.4 RATIO (10-20); Calcium,Total 8.9 mg/dL (8.5-10.1); Chloride 104 mmol/L (98-107); Creatinine, Serum 1.03 mg/dL (0.55-1.02); EST Glomerular Filtration Rate 58 mL/min (>60); Est Glom Filt Rate - Afr Amer 70 mL/min (>60); Glucose 215 mg/dL (74-106); Potassium 4.1 mmol/L (3.5-5.1); Sodium Level 138 mmol/L (136-145)
== END ==
LOC: OLS.WHLEAS 05:00
PROVIDERS: PCP Internal Medicine; Visit Provider Internal Medicine
DX: E03.9 Hypothyroidism, unspecified (principal)
CPT/HCPCS: 36415; 80048; 84443

== ENCOUNTER → 2024-07-07 05:00 | Outpatient (REF) | payer MEDICARE, MEDICAID, SELFPAY ==
[2024-07-07 07:06] LABS: Absolute Lymphocyte Count 2.83 X10^3/uL (0.83-4.51); Absolute Neutrophil Count 3.1 X10^3/uL (2.0-7.7); Basophil# 0.05 X10^3/uL; Basophil% 0.8 % (0-1); Eosinophil# 0.11 X10^3/uL; Eosinophils% 1.7 % (0-5); Hematocrit 32.8 % (37-47); Hemoglobin 10.2 g/dL (12.0-15.0); Lymphocyte # 2.83 X10^3/ul (0.83-4.51); Lymphocyte % 43.7 % (19-41); Mean Corp Hgb Conc 31.1 g/dL (32-36); Mean Corpuscular Hgb 27.8 pg (27.0-32.0); Mean Corpuscular Volume 89.4 fL (81-99); Mean Platelet Vol. 9.6 fl (6.2-12.0); Monocyte# 0.34 X10^3/uL; Monocyte% 5.3 % (0-10); NRBC Flagged by Analyzer 0 % (0-5); Neutrophil # 3.12 X10^3/uL (2.7-7.7); Neutrophil % 48.2 % (47-70); Platelet Count 338 K/mm3 (150-450); RBC Distribution Width SD 45.8 fl (35.1-43.9); Red Blood Count 3.67 M/mm3 (4.2-5.4); White Blood Count 6.5 K/mm3 (4.4-11.0)
[2024-07-07 07:29] LABS: Anion Gap 5 (5-15); BUN 22 mg/dL (7-18); BUN/Creat Ratio 19.3 RATIO (10-20); Calcium,Total 9.1 mg/dL (8.5-10.1); Chloride 105 mmol/L (98-107); Creatinine, Serum 1.14 mg/dL (0.55-1.02); EST Glomerular Filtration Rate 52 mL/min (>60); Est Glom Filt Rate - Afr Amer 62 mL/min (>60); Glucose 136 mg/dL (74-106); Potassium 4.1 mmol/L (3.5-5.1); Sodium Level 138 mmol/L (136-145)
== END ==
LOC: OLS.WHLEAS 05:00
PROVIDERS: PCP Internal Medicine; Visit Provider Internal Medicine
DX: E11.22 Type 2 diabetes mellitus with diabetic chronic kidney disease (principal); N18.9 Chronic kidney disease, unspecified; E11.65 Type 2 diabetes mellitus with hyperglycemia; N17.9 Acute kidney failure, unspecified; A09 Infectious gastroenteritis and colitis, unspecified; N30.00 Acute cystitis without hematuria; M62.561 Muscle wasting and atrophy, not elsewhere classified, right lower leg
CPT/HCPCS: 36415; 80048; 85025

== ENCOUNTER 2024-07-08 21:00 | Emergency (ER) | payer MEDICARE, MEDICAID, SELFPAY ==
[2024-07-08 21:00] VITALS: BP 159/78; PULSE 91; RESP 18; TEMP 36.7; O2SAT 98
--- NOTE | 2024-07-08 21:24 | EDS_ITS ---
HPI History of Present Illness Chief Complaint: Abd Pain [facility] Medical History Anxiety and depression Diabetes mellitus, type 2 Pulmonary emboli Parathyroid disease History of left heart catheterization (LHC) (~05/21/22) CKD (chronic kidney disease) stage 3, GFR 30-59 ml/min Essential hypertension Orthostatic hypotension Hypothyroidism Chronic back pain Obesity (BMI 35.0-39.9 without comorbidity) Normochromic normocytic anemia Hyperlipidemia Former smoker Opiate abuse, continuous Intervertebral disc disorder with radiculopathy of lumbar region Carpal tunnel syndrome Kidney stones Thyroid disease Migraines Stomach ulcer HTN (hypertension) Home Medications ?Medication ?Instructions ?Recorded ?Last Taken ?Type rizatriptan 10 mg tablet 10 mg PO PRN Migraine Symptoms 12/27/17 04/03/24 History atorvastatin 40 mg tablet 40 mg PO QHS #30 tabs 05/21/22 06/19/24 Rx metoprolol succinate 25 mg 25 mg PO DAILY #30 tabs 05/21/22 06/18/24 Rx tablet,extended release 24 hr pantoprazole 40 mg tablet,delayed 40 mg PO DAILY 06/12/22 06/19/24 History release ranolazine 500 mg tablet,extended 500 mg PO BID #60 tabs 06/12/22 06/19/24 Rx release,12 hr midodrine 10 mg tablet 10 mg PO BID 09/09/22 06/20/24 History fenofibrate 50 mg capsule 50 mg PO QHS 01/29/23 06/19/24 History lorazepam 0.5 mg tablet 0.5 mg PO Q12H anxeity 01/29/23 12/31/23 History quetiapine 25 mg tablet 37.5 mg PO QHS 01/29/23 06/19/24 History acetaminophen 325 mg tablet 650 mg (2 x 325 mg) PO Q6H PRN PRN 11/24/23 06/16/24 Rx Pain 1-10 Or Fever >100.7 #0 tabs melatonin 3 mg tablet 3 mg PO QHS PRN PRN Insomnia #0 11/24/23 06/19/24 Rx tabs potassium chloride 20 mEq 20 meq PO 1XD #0 tabs 11/24/23 06/19/24 Rx tablet,extended release(part/cryst) apixaban 5 mg tablet (Eliquis) 10 mg (2 x 5 mg) PO BID #0 tabs 01/05/24 06/19/24 Rx insulin glargine-yfgn 100 unit/mL 35 unit (0.35 mL) subcut BREAKFAST 01/05/24 06/19/24 Rx (3 mL) subcutaneous pen #0 mL insulin glargine-yfgn 100 unit/mL 35 unit (0.35 mL) subcut QHS #0 mL 01/05/24 06/19/24 Rx (3 mL) subcutaneous pen sennosides 8.6 mg-docusate sodium 2 tab PO BID PRN PRN Constipation 01/05/24 06/19/24 Rx 50 mg tablet (Stool #0 tabs Softener-Stimulant Laxative) buprenorphine 10 mcg/hour weekly 1 patch topical QWEEK 03/24/24 06/13/24 History transdermal patch dulaglutide 1.5 mg/0.5 mL 1.5 mg subcut Q7D 03/24/24 06/19/24 History subcutaneous pen injector (Trulicity) levothyroxine 175 mcg tablet 175 mcg PO DAILY 03/24/24 06/19/24 History ondansetron HCl 4 mg tablet 4 mg PO Q8H PRN PRN nausea and 03/24/24 05/29/24 History vomiting insulin lispro 100 unit/mL 12 unit subcut TIDAC 04/02/24 06/19/24 History subcutaneous pen (Humalog KwikPen (U-100) Insulin) loperamide 2 mg capsule 2 mg PO Q6H PRN loose stool 04/02/24 03/08/24 History (Anti-Diarrheal (loperamide)) nystatin 100,000 unit/gram topical 1 applic topical BID 04/02/24 Unknown History powder (Nyamyc) fluticasone propionate 50 2 spray intranasal DAILY 06/20/24 06/19/24 History mcg/actuation nasal spray,suspension (Aller-Scar) furosemide 20 mg tablet 20 mg PO DAILY 06/20/24 06/19/24 History nitroglycerin 0.4 mg sublingual 0.4 mg sublingual Q5M PRN chest 06/20/24 Unknown History tablet pain nystatin 100,000 unit/mL oral 1 ml PO TID 7 days #21 mL 06/20/24 Unknown Rx suspension promethazine 25 mg tablet 25 mg PO Q6H PRN nausea and 06/20/24 Unknown History vomiting ondansetron 4 mg disintegrating 4 mg PO Q8H PRN PRN Nausea #10 tabs 07/08/24 Unknown Rx tablet Allergy/AdvReac Type Severity Reaction Status Date / Time celecoxib (From Celebrex) Allergy Itching Verified 07/08/24 21:02 ciprofloxacin (From Cipro) Allergy Swelling Verified 07/08/24 21:02 ciprofloxacin HCl (From Allergy Swelling Verified 07/08/24 21:02 Cipro) codeine Allergy Hives Verified 07/08/24 21:02 ibuprofen Allergy Hives Verified 07/08/24 21:02 naproxen Allergy Hives Verified 07/08/24 21:02 Penicillins Allergy Hives Verified 07/08/24 21:02 tramadol HCl (From Ultram) Allergy Hives Verified 07/08/24 21:02 ketorolac (From Toradol) AdvReac Swelling Verified 07/08/24 21:02 Family History Mother Cancer CVA (cerebral vascular accident) Hypertension Heart disease Myocardial infarction Diabetes Father Asthma Surgical History History of cholecystectomy S/P trigger finger release H/O: hysterectomy Hx of section Social History household members: other details: currently living in a NH for therapy for chronic back pain housing: skilled nursing Smoking Status: Former smoker Tobacco: How many years used: 46 how long ago did patient quit smoking: Quit 09/2021, smoked 1 ppd since teen until quit. alcohol intake: never substance use type: other details: History of chronic opiate use. Denies abuse. EXAM Physical Exam Const Vital Signs: 07/08/24 21:00 07/08/24 23:00 Temperature 98.1 F 97.5 F L Temperature Source Temporal Oral Pulse Rate 91 112 H Respiratory Rate 18 18 Blood Pressure 159/78 H 157/67 H Blood Pressure Mean 105 97 Pulse Ox 98 99 Oxygen Delivery Method Room Air Room Air MDM MDM MDM Narrative Medical decision making narrative: HISTORY OF PRESENT ILLNESS: 58-year-old female CAD, history of CKD, hyperlipidemia, type 2 diabetes, PE on Eliquis presents with abdominal pain nausea vomiting since yesterday. Notes multiple abdominal surgeries. Last bowel was yesterday. No melena hematochezia endorsed. No urinary complaint such as dysuria, frequency or urgency. No fever. No chest pain. No shortness of breath. Denies vaginal bleeding or discharge. REVIEW OF SYSTEMS: Pertinent positives: Abdominal pain, nausea vomiting Pertinent negatives: As per HPI PHYSICAL EXAM: Nursing triage notes reviewed, Vital signs reviewed Constitutional: please see [facility] HENT: MMM Eyes: Pupils equal round and reactive to light, Extraocular muscles intact Neck: No stridor, no JVD, full neck ROM Lungs: Clear to auscultation, No wheezing or rales. No increased work of breathing, no conversational dyspnea, no accessory muscle use, no nasal flaring. No respiratory distress noted Heart: Regular rate and rhythm, No murmurs, No rubs and No gallops, 2+ distal pulses (radial, femoral, posterior tibial) in all extremities Abdomen: Soft, diffuse tenderness but no rigidity, rebound or guarding, no obvious peritoneal signs, no palpable pulsatile abdominal masses, no auscultated abdominal bruit : No CVAT Extremities: No edema Neuro: No focal neurological deficits, cranial nerves II through XII intact, 5/5 strength in all extremities. Intact sensation to light touch in all extremities, 2+ reflexes bilateral patella tendons. Normal gait. No ataxia. Skin: No rash or lesions noted MEDICAL DECISION MAKING: Chief Complaint: Abdominal pain, nausea vomiting External records reviewed: Reviewed recent ED visit. Imaging reviewed: Reviewed CT scan abdomen pelvis from 2022 which showed dilated common bile duct and concern for acute cystitis Factors affecting care: As per [facility] Narrative: Patient was initially hemodynamically stable, afebrile and nontoxic-appearing. Exam overall benign. I considered the following differential diagnosis: AAA, small bowel obstruction, abdominal perforation, appendicitis, pancreatitis, hepatobiliary pathology (acute cholecystitis), pathology (ie nephrolithiasis, pyelonephritis). I obtained a broad lab and imaging workup to further elucidate etiology the patient's complaints. ALL IMAGES (IF OBTAINED) HAVE BEEN PERSONALLY REVIEWED AND INTERPRETED BY MYSELF. CBC with no leukocytosis, improved anemia, no thrombocytopenia BMP without significant lecture abnormalities, no anemia, no thrombocytopenia, no signs of metabolic acidosis or endorgan hypoperfusion with normal bicarb and anion gap LFTs show no evidence of hepatobiliary pathology. Lipase is wnl indicating no pancreatic inflammation. CT scan of the abdomen pelvis is negative for perforation or obstruction Urinalysis shows no evidence of urinary inflammation suggestive of UTI Repeat abdominal exam remained benign. No clear life-limiting etiology identified. Patient appropriate discharge home with close outpatient PCP and possibly GI follow-up. The patient and/or family, caregivers express understanding. The patient and/or family, caregivers agrees with the plan. Shared decision making: I will have a discussion with the patient and or visitors regarding risk/benefits of further testing or admission. They will be made aware of of the risk/benefits inherent in this decision they will be given the opportunity to voice understanding. Total critical care time today provided was at least 0 minutes. This excludes separately billable procedures. Critical care time (if documented) is secondary to the patient having high probability of clinically significant/life threatening deterioration in the patient's condition which required my urgent intervention. Impression: 1. Acute abdominal pain 2. Anemia Dispo: Discharge home This note was generated with [employer] dictation software. It may contain incorrect words, spelling, and punctuation that were not noted in review of the chart prior to signing. Lab Data Labs: Laboratory Results - last 24 hr 07/08/24 07/08/24 21:10 22:40 WBC 6.4 RBC 4.14 L Hgb 11.6 L Hct 36.9 L MCV 89.1 MCH 28.0 MCHC 31.4 L RDW Std Deviation 45.2 H RDW Coeff of Anisa 14.0 Plt Count 383 MPV 9.5 Immature Gran % (Auto) 0.200 Neut % (Auto) 61.9 Lymph % (Auto) 31.2 [place] % (Auto) 4.5 Eos % (Auto) 1.6 Baso % (Auto) 0.6 Absolute Neuts (auto) 4.0 Absolute Lymphs (auto) 2.00 Nucleated RBC % 0 Sodium 135 L Potassium 4.2 Chloride 102 Carbon Dioxide 26.0 Anion Gap 7 BUN 25 H Creatinine 1.32 H Est GFR (MDRD) Af Amer 53 L Est GFR (MDRD) Non-Af 44 L BUN/Creatinine Ratio 18.9 Glucose 208 H Calcium 9.5 Total Bilirubin 0.40 Direct Bilirubin 0.16 AST 24 ALT 21 Alkaline Phosphatase 50 Total Protein 7.8 Albumin 3.5 Globulin 4.3 H Lipase 36 Urine Color Yellow Urine Clarity Sl. Cloudy Urine pH 6.0 Ur Specific [place] 1.015 Urine Protein Negative Urine Glucose (UA) Normal Urine Ketones Negative Urine Occult Blood Negative Urine Nitrite Negative Urine Bilirubin Negative Urine Urobilinogen Normal Ur Leukocyte Esterase Negative Urine RBC 0 SEEN Urine WBC 0 SEEN Ur Squamous Epith Cells 0-5 SEEN Amorphous Sediment 1+ URATE Urine Bacteria 0 SEEN Urine Mucus 0 SEEN Radiography Diagnostic Testing: Clinical Impression(s) from Imaging Studies Abdomen/Pelvis CT 07/08/24 21:27 IMPRESSION: Small fatty umbilical hernia. Electronically Signed: López Bashir DO at 23:06 EDT Reading Location ID and State: [facility] / [place] Tel [phone], Service support , Discharge Plan Triage Chief Complaint: Abd Pain ED Provider: Salvador Campbell Dx/Rx/DC Orders Clinical Impression: Abdominal pain Instructions: Abdominal Pain Prescriptions: New ondansetron 4 mg tablet,disintegrating 4 mg PO Q8H PRN PRN (Reason: Nausea) Qty: 10 0RF No Action pantoprazole 40 mg tablet,delayed release (DR/EC) 40 mg PO DAILY ranolazine 500 mg tablet extended release 12 hr 500 mg PO BID Qty: 60 11RF midodrine 10 mg tablet 10 mg PO BID rizatriptan 10 tablet 10 mg PO PRN Patient Comments: metoprolol succinate 25 mg Tablet Extended Release 24 Hr 25 mg PO DAILY Qty: 30 2RF atorvastatin 40 mg tablet 40 mg PO QHS Qty: 30 2RF quetiapine 25 mg tablet 37.5 mg PO QHS lorazepam 0.5 mg tablet 0.5 mg PO Q12H fenofibrate 50 mg Capsule 50 mg PO QHS acetaminophen 325 mg Tablet 650 mg PO Q6H PRN PRN (Reason: Pain 1-10 Or Fever >100.7) Qty: 0 0RF melatonin 3 mg Tablet 3 mg PO QHS PRN PRN (Reason: Insomnia) Qty: 0 0RF potassium chloride 20 mEq Tablet,Er Particles/Crystals 20 meq PO 1XD Qty: 0 0RF buprenorphine 10 mcg/hour patch weekly 1 patch topical QWEEK Rx Instructions: FRIDAYS Trulicity 1.5 mg/0.5 mL pen injector 1.5 mg subcut Q7D Rx Instructions: MONDAYS levothyroxine 175 mcg tablet 175 mcg PO DAILY ondansetron HCl 4 mg tablet 4 mg PO Q8H PRN PRN (Reason: nausea and vomiting) nystatin [Nyamyc] 100,000 unit/gram powder 1 applic topical BID loperamide [Anti-Diarrheal (loperamide)] 2 mg capsule 2 mg PO Q6H PRN (Reason: loose stool) insulin lispro [Humalog KwikPen Insulin] 100 unit/mL Insulin Pen 12 unit subcut TIDAC insulin glargine-yfgn 100 unit/mL (3 mL) Insulin Pen 35 unit subcut QHS Qty: 0 0RF insulin glargine-yfgn 100 unit/mL (3 mL) Insulin Pen 35 unit subcut BREAKFAST Qty: 0 0RF Eliquis 5 mg Tablet 10 mg PO BID Qty: 0 0RF sennosides-docusate sodium [Stool Softener-Stimulant Laxat] 8.6-50 mg Tablet 2 tab PO BID PRN PRN (Reason: Constipation) Qty: 0 0RF nitroglycerin 0.4 mg tablet, sublingual 0.4 mg sublingual Q5M PRN (Reason: chest pain) Rx Instructions: do not exceed 3 doses per episode fluticasone propionate [Aller-Scar] 50 mcg/actuation spray,suspension 2 spray intranasal DAILY Rx Instructions: administer into each nostril promethazine 25 mg tablet 25 mg PO Q6H PRN (Reason: nausea and vomiting) furosemide 20 mg tablet 20 mg PO DAILY nystatin 100,000 unit/mL suspension 1 ml PO TID 7 Days Qty: 21 1RF Rx Instructions: swish and swallow Primary Care Provider: Lizet Linares Referrals: Lizet Linares MD [Primary Care Provider] - Activity Restrictions/Additional Instructions: Thank you for trusting us with your care today! Please take Tylenol (2 pills, 650 mg), ibuprofen (2 pills, 400 mg) every 6 hours as needed for pain and fever control. Please take Zofran as needed for nausea and vomiting. Please return to the emergency department if your symptoms change or worsen. Please follow with your primary care physician for further outpatient evaluation and management. Print Language: Slovak Disposition Disposition: Home, Self Care
--- NOTE | 2024-07-08 21:27 | CT_ITS ---
STUDY: CT ABDOMEN AND PELVIS WITH CONTRAST REASON FOR EXAM: Female, 58 years old. Abdominal pain, nausea vomiting RADIATION DOSAGE (If Supplied By Facility): CTDIvol = ( 16.09 ) mGy, DLP = ( 1142.98 ) mGycm TECHNIQUE: Transaxial images were obtained from the dome of the diaphragm to the symphysis pubis without oral contrast. IV 75mL Isovue-370 was administered. Sagittal and coronal images were reconstructed. Individualized dose optimization techniques were used for this CT. COMPARISON: None. FINDINGS: The visualized lung bases are unremarkable. The visualized portions of the heart are within normal limits. Granulomatous calcifications in the spleen and liver. Nonvisualization of the gallbladder. Dilatation of the biliary system. Normal pancreas. Normal bilateral adrenal glands. Normal right kidney. Normal left kidney. Normal visualized stomach. Normal small intestine. Normal colon. The appendix is visualized and appears normal. Calcified abdominal aorta. Normal inferior vena cava. Normal retroperitoneum. Normal urinary bladder. Fatty umbilical hernia. Normal osseous structures. CT/Abdomen/Pelvis W IV Cont ONLY IMPRESSION: Small fatty umbilical hernia. Electronically Signed: López Bashir DO at 23:06 EDT Reading Location ID and State: [facility] / [place] Tel [phone], Service support ,
[2024-07-08] MEDS: 0.9% Normal Saline (1000mL) 1,000 ML 999 ML IV (21:40)
[2024-07-08] MEDS: Ondansetron 4 MG/2 ML Vial IV (21:40)
[2024-07-08 21:55] LABS: Basophil# 0.04 X10^3/uL; Basophil% 0.6 % (0-1); Eosinophils% 1.6 % (0-5); Hematocrit 36.9 % (37-47); Hemoglobin 11.6 g/dL (12.0-15.0); Lymphocyte % 31.2 % (19-41); Mean Corp Hgb Conc 31.4 g/dL (32-36); Mean Corpuscular Volume 89.1 fL (81-99); Mean Platelet Vol. 9.5 fl (6.2-12.0); Monocyte# 0.29 X10^3/uL; Monocyte% 4.5 % (0-10); NRBC Flagged by Analyzer 0 % (0-5); Neutrophil # 3.98 X10^3/uL (2.7-7.7); Neutrophil % 61.9 % (47-70); Platelet Count 383 K/mm3 (150-450); RBC Distribution Width SD 45.2 fl (35.1-43.9); Red Blood Count 4.14 M/mm3 (4.2-5.4); White Blood Count 6.4 K/mm3 (4.4-11.0)
[2024-07-08 22:10] LABS: AST(SGOT) 24 U/L (15-37); Alanine Aminotransfer ALT/SGPT 21 U/L (13-56); Albumin, Serum 3.5 g/dL (3.2-5.0); Alkaline Phosphatase 50 U/L (45-117); Anion Gap 7 (5-15); BUN 25 mg/dL (7-18); BUN/Creat Ratio 18.9 RATIO (10-20); Bilirubin, Direct 0.16 mg/dL (0.00-0.30); Calcium,Total 9.5 mg/dL (8.5-10.1); Chloride 102 mmol/L (98-107); Creatinine, Serum 1.32 mg/dL (0.55-1.02); EST Glomerular Filtration Rate 44 mL/min (>60); Est Glom Filt Rate - Afr Amer 53 mL/min (>60); Globulin 4.3 g/dL (2.2-4.2); Glucose 208 mg/dL (74-106); Lipase 36 U/L (13-75); Potassium 4.2 mmol/L (3.5-5.1); Protein, Total 7.8 g/dL (6.4-8.2); Sodium Level 135 mmol/L (136-145)
[2024-07-08 22:50] LABS: Bacteria 0 SEEN /hpf (None Seen); Mucous, Urine 0 SEEN /hpf (<or=2+); Red Blood Cells-Urine 0 SEEN /hpf (0-5); White Blood Cells 0 SEEN /hpf (0-5)
[2024-07-08 22:55] LABS: Color, Urine Yellow (Yellow); Glucose, Dipstick Normal (Normal); Ketone-Dipstick Negative (Negative); Leukocyte Esterase-Dipstick Negative /ul (Negative); Nitrite-Dipstick Negative (Negative); Occult Blood-Urine Negative /ul (Negative); Protein-Dipstick Negative (Negative); Specific Gravity, Urine 1.015 (1.002-1.030); Urine Bilirubin Dipstick Negative (Negative); Urine Clarity Sl. Cloudy (Clear); Urine Urobilinogen Normal (Normal)
[2024-07-08 23:00] VITALS: BP 157/67; PULSE 112; RESP 18; TEMP 36.4; O2SAT 99
[2024-07-08 23:05] LABS: Squamous Epithelial Cells - UA 0-5 SEEN /hpf (5-10)
[2024-07-08 23:06] LABS: Amorphous Sediment 1+ URATE
[2024-07-08] MEDS: Morphine 4 MG/ML Syringe IV (23:11)
[2024-07-08 23:30] VITALS: BP 157/67; PULSE 112; RESP 18; TEMP 36.4; O2SAT 99
== END 2024-07-08 23:31 | disposition home or self-care (01) ==
PROVIDERS: Emergency Provider Emergency Medicine; PCP Internal Medicine; Visit Provider Emergency Medicine
DX: R10.0 Acute abdomen (principal); E11.22 Type 2 diabetes mellitus with diabetic chronic kidney disease; Z79.4 Long term (current) use of insulin; Z87.891 Personal history of nicotine dependence; I12.9 Hypertensive chronic kidney disease with stage 1 through stage 4 chronic kidney disease, or unspecified chronic kidney disease; E78.5 Hyperlipidemia, unspecified; D64.9 Anemia, unspecified; Z79.899 Other long term (current) drug therapy; F41.8 Other specified anxiety disorders; Z79.85 Long-term (current) use of injectable non-insulin antidiabetic drugs; E03.9 Hypothyroidism, unspecified; Z86.711 Personal history of pulmonary embolism
CPT/HCPCS: 74177; 80048; 80076; 81001; 83690; 85025; 96361; 96374; 96375; 99283; J7030; Q9967; A4216; J2405

== ENCOUNTER → 2024-07-14 05:00 | Outpatient (REF) | payer MEDICARE, MEDICAID, SELFPAY ==
[2024-07-14 08:14] LABS: Absolute Lymphocyte Count 2.14 X10^3/uL (0.83-4.51); Absolute Neutrophil Count 4.7 X10^3/uL (2.0-7.7); Basophil# 0.01 X10^3/uL; Basophil% 0.1 % (0-1); Eosinophil# 0.01 X10^3/uL; Eosinophils% 0.1 % (0-5); Hematocrit 33.2 % (37-47); Hemoglobin 10.5 g/dL (12.0-15.0); Lymphocyte # 2.14 X10^3/ul (0.83-4.51); Lymphocyte % 29.6 % (19-41); Mean Corp Hgb Conc 31.6 g/dL (32-36); Mean Corpuscular Hgb 27.8 pg (27.0-32.0); Mean Corpuscular Volume 87.8 fL (81-99); Mean Platelet Vol. 9.8 fl (6.2-12.0); Monocyte# 0.33 X10^3/uL; Monocyte% 4.6 % (0-10); NRBC Flagged by Analyzer 0 % (0-5); Neutrophil # 4.72 X10^3/uL (2.7-7.7); Neutrophil % 65.3 % (47-70); Platelet Count 346 K/mm3 (150-450); RBC Distribution Width CV 13.9 % (11.6-14.6); Red Blood Count 3.78 M/mm3 (4.2-5.4); White Blood Count 7.2 K/mm3 (4.4-11.0)
[2024-07-14 08:46] LABS: Anion Gap 10 (5-15); BUN 26 mg/dL (7-18); BUN/Creat Ratio 20.6 RATIO (10-20); Calcium,Total 8.8 mg/dL (8.5-10.1); Chloride 105 mmol/L (98-107); Creatinine, Serum 1.26 mg/dL (0.55-1.02); EST Glomerular Filtration Rate 46 mL/min (>60); Est Glom Filt Rate - Afr Amer 56 mL/min (>60); Glucose 264 mg/dL (74-106); Potassium 4.3 mmol/L (3.5-5.1); Sodium Level 136 mmol/L (136-145)
== END ==
LOC: OLS.WHLEAS 05:00
PROVIDERS: PCP Internal Medicine; Visit Provider Internal Medicine
DX: E11.22 Type 2 diabetes mellitus with diabetic chronic kidney disease (principal); N18.9 Chronic kidney disease, unspecified
CPT/HCPCS: 36415; 80048; 85025

== ENCOUNTER → 2024-07-21 05:00 | Outpatient (REF) | payer MEDICARE, MEDICAID, SELFPAY ==
[2024-07-21 09:31] LABS: Absolute Neutrophil Count 3.7 X10^3/uL (2.0-7.7); Basophil# 0.06 X10^3/uL; Basophil% 0.8 % (0-1); Eosinophil# 0.12 X10^3/uL; Eosinophils% 1.6 % (0-5); Hemoglobin 10.1 g/dL (12.0-15.0); Lymphocyte % 43.5 % (19-41); Mean Corp Hgb Conc 30.6 g/dL (32-36); Mean Corpuscular Hgb 27.4 pg (27.0-32.0); Mean Corpuscular Volume 89.4 fL (81-99); Mean Platelet Vol. 9.7 fl (6.2-12.0); Monocyte# 0.43 X10^3/uL; Monocyte% 5.7 % (0-10); NRBC Flagged by Analyzer 0 % (0-5); Neutrophil # 3.65 X10^3/uL (2.7-7.7); Neutrophil % 48.1 % (47-70); Platelet Count 326 K/mm3 (150-450); RBC Distribution Width CV 14.1 % (11.6-14.6); RBC Distribution Width SD 45.7 fl (35.1-43.9); Red Blood Count 3.69 M/mm3 (4.2-5.4); White Blood Count 7.6 K/mm3 (4.4-11.0)
[2024-07-21 09:49] LABS: Anion Gap 5 (5-15); BUN 36 mg/dL (7-18); BUN/Creat Ratio 31.6 RATIO (10-20); Calcium,Total 9.2 mg/dL (8.5-10.1); Chloride 104 mmol/L (98-107); Creatinine, Serum 1.14 mg/dL (0.55-1.02); EST Glomerular Filtration Rate 52 mL/min (>60); Est Glom Filt Rate - Afr Amer 62 mL/min (>60); Glucose 117 mg/dL (74-106); Potassium 4.4 mmol/L (3.5-5.1); Sodium Level 138 mmol/L (136-145)
== END ==
LOC: OLS.WHLEAS 05:00
PROVIDERS: PCP Internal Medicine; Visit Provider Internal Medicine
DX: E11.22 Type 2 diabetes mellitus with diabetic chronic kidney disease (principal); N18.30 Chronic kidney disease, stage 3 unspecified
CPT/HCPCS: 36415; 80048; 85025

== ENCOUNTER → 2024-07-28 05:00 | Outpatient (REF) | payer MEDICARE, MEDICAID, SELFPAY ==
[2024-07-28 08:03] LABS: Absolute Lymphocyte Count 2.91 X10^3/uL (0.83-4.51); Absolute Neutrophil Count 4.3 X10^3/uL (2.0-7.7); Basophil# 0.04 X10^3/uL; Basophil% 0.5 % (0-1); Eosinophil# 0.13 X10^3/uL; Eosinophils% 1.7 % (0-5); Hematocrit 31.4 % (37-47); Hemoglobin 9.7 g/dL (12.0-15.0); Lymphocyte # 2.91 X10^3/ul (0.83-4.51); Mean Corp Hgb Conc 30.9 g/dL (32-36); Mean Corpuscular Hgb 27.8 pg (27.0-32.0); Mean Platelet Vol. 9.6 fl (6.2-12.0); Monocyte% 6.4 % (0-10); NRBC Flagged by Analyzer 0 % (0-5); Neutrophil # 4.25 X10^3/uL (2.7-7.7); Platelet Count 276 K/mm3 (150-450); RBC Distribution Width CV 14.3 % (11.6-14.6); RBC Distribution Width SD 46.4 fl (35.1-43.9); Red Blood Count 3.49 M/mm3 (4.2-5.4); White Blood Count 7.9 K/mm3 (4.4-11.0)
[2024-07-28 08:14] LABS: Anion Gap 5 (5-15); BUN 27 mg/dL (7-18); BUN/Creat Ratio 22.3 RATIO (10-20); Calcium,Total 8.9 mg/dL (8.5-10.1); Chloride 106 mmol/L (98-107); Creatinine, Serum 1.21 mg/dL (0.55-1.02); EST Glomerular Filtration Rate 48 mL/min (>60); Est Glom Filt Rate - Afr Amer 58 mL/min (>60); Glucose 168 mg/dL (74-106); Sodium Level 139 mmol/L (136-145)
== END ==
LOC: OLS.WHLEAS 05:00
PROVIDERS: PCP Internal Medicine; Visit Provider Internal Medicine
DX: E11.22 Type 2 diabetes mellitus with diabetic chronic kidney disease (principal); N18.30 Chronic kidney disease, stage 3 unspecified
CPT/HCPCS: 36415; 80048; 85025

== ENCOUNTER → 2024-08-04 05:00 | Outpatient (REF) | payer MEDICARE, MEDICAID, SELFPAY ==
[2024-08-04 06:44] LABS: Absolute Lymphocyte Count 2.37 X10^3/uL (0.83-4.51); Absolute Neutrophil Count 3.1 X10^3/uL (2.0-7.7); Basophil# 0.03 X10^3/uL; Basophil% 0.5 % (0-1); Eosinophil# 0.11 X10^3/uL; Eosinophils% 1.8 % (0-5); Hematocrit 31.2 % (37-47); Hemoglobin 9.7 g/dL (12.0-15.0); Lymphocyte # 2.37 X10^3/ul (0.83-4.51); Lymphocyte % 39.6 % (19-41); Mean Corp Hgb Conc 31.1 g/dL (32-36); Mean Corpuscular Hgb 27.5 pg (27.0-32.0); Mean Corpuscular Volume 88.4 fL (81-99); Mean Platelet Vol. 9.1 fl (6.2-12.0); Monocyte# 0.38 X10^3/uL; Monocyte% 6.4 % (0-10); NRBC Flagged by Analyzer 0 % (0-5); Neutrophil # 3.07 X10^3/uL (2.7-7.7); Neutrophil % 51.4 % (47-70); Platelet Count 292 K/mm3 (150-450); RBC Distribution Width CV 14.1 % (11.6-14.6); RBC Distribution Width SD 45.3 fl (35.1-43.9); Red Blood Count 3.53 M/mm3 (4.2-5.4)
[2024-08-04 07:03] LABS: Anion Gap 5 (5-15); BUN 24 mg/dL (7-18); BUN/Creat Ratio 22.2 RATIO (10-20); Calcium,Total 8.6 mg/dL (8.5-10.1); Chloride 107 mmol/L (98-107); Creatinine, Serum 1.08 mg/dL (0.55-1.02); EST Glomerular Filtration Rate 55 mL/min (>60); Est Glom Filt Rate - Afr Amer 66 mL/min (>60); Glucose 208 mg/dL (74-106); Sodium Level 138 mmol/L (136-145)
== END ==
LOC: OLS.WHLEAS 05:00
PROVIDERS: PCP Internal Medicine; Visit Provider Internal Medicine
DX: E11.22 Type 2 diabetes mellitus with diabetic chronic kidney disease (principal); N18.9 Chronic kidney disease, unspecified
CPT/HCPCS: 36415; 80048; 85025

== ENCOUNTER → 2024-08-11 | Outpatient (REF) | payer MEDICARE, MEDICAID, SELFPAY ==
[2024-08-11 07:46] LABS: Absolute Lymphocyte Count 2.63 X10^3/uL (0.83-4.51); Absolute Neutrophil Count 5.4 X10^3/uL (2.0-7.7); Basophil# 0.04 X10^3/uL; Basophil% 0.5 % (0-1); Eosinophil# 0.09 X10^3/uL; Hematocrit 32.6 % (37-47); Hemoglobin 10.2 g/dL (12.0-15.0); Lymphocyte # 2.63 X10^3/ul (0.83-4.51); Lymphocyte % 30.7 % (19-41); Mean Corp Hgb Conc 31.3 g/dL (32-36); Mean Corpuscular Hgb 27.9 pg (27.0-32.0); Mean Corpuscular Volume 89.3 fL (81-99); Mean Platelet Vol. 9.6 fl (6.2-12.0); Monocyte# 0.43 X10^3/uL; NRBC Flagged by Analyzer 0 % (0-5); Neutrophil # 5.36 X10^3/uL (2.7-7.7); Neutrophil % 62.5 % (47-70); Platelet Count 324 K/mm3 (150-450); RBC Distribution Width CV 14.5 % (11.6-14.6); RBC Distribution Width SD 47.3 fl (35.1-43.9); Red Blood Count 3.65 M/mm3 (4.2-5.4); White Blood Count 8.6 K/mm3 (4.4-11.0)
[2024-08-11 07:53] LABS: Anion Gap 6 (5-15); BUN 32 mg/dL (7-18); BUN/Creat Ratio 29.1 RATIO (10-20); Calcium,Total 8.7 mg/dL (8.5-10.1); Chloride 108 mmol/L (98-107); EST Glomerular Filtration Rate 54 mL/min (>60); Est Glom Filt Rate - Afr Amer 65 mL/min (>60); Glucose 147 mg/dL (74-106); Potassium 3.8 mmol/L (3.5-5.1); Sodium Level 141 mmol/L (136-145)
== END ==
LOC: OLS.WHLEAS 05:30
PROVIDERS: PCP Internal Medicine; Visit Provider Internal Medicine
DX: E11.22 Type 2 diabetes mellitus with diabetic chronic kidney disease (principal); N17.9 Acute kidney failure, unspecified; N18.9 Chronic kidney disease, unspecified
CPT/HCPCS: 36415; 80048; 85025

== ENCOUNTER → 2024-08-18 | Outpatient (REF) | payer MEDICARE, MEDICAID, SELFPAY ==
[2024-08-18 09:23] LABS: Anion Gap 4 (5-15); BUN 26 mg/dL (7-18); BUN/Creat Ratio 24.3 RATIO (10-20); Calcium,Total 8.5 mg/dL (8.5-10.1); Chloride 106 mmol/L (98-107); Creatinine, Serum 1.07 mg/dL (0.55-1.02); EST Glomerular Filtration Rate 55 mL/min (>60); Erythrocyte Sedimentation Rate 9 mm/hr (0-30); Est Glom Filt Rate - Afr Amer 67 mL/min (>60); Glucose 234 mg/dL (74-106); Sodium Level 138 mmol/L (136-145)
[2024-08-18 09:31] LABS: Absolute Lymphocyte Count 2.41 X10^3/uL (0.83-4.51); Absolute Neutrophil Count 3.5 X10^3/uL (2.0-7.7); Basophil# 0.04 X10^3/uL; Basophil% 0.6 % (0-1); Eosinophil# 0.11 X10^3/uL; Eosinophils% 1.7 % (0-5); Hematocrit 29.5 % (37-47); Hemoglobin 9.4 g/dL (12.0-15.0); Lymphocyte # 2.41 X10^3/ul (0.83-4.51); Lymphocyte % 37.1 % (19-41); Mean Corp Hgb Conc 31.9 g/dL (32-36); Mean Corpuscular Hgb 28.3 pg (27.0-32.0); Mean Corpuscular Volume 88.9 fL (81-99); Mean Platelet Vol. 9.8 fl (6.2-12.0); Monocyte% 6.2 % (0-10); NRBC Flagged by Analyzer 0 % (0-5); Neutrophil # 3.49 X10^3/uL (2.7-7.7); Neutrophil % 53.6 % (47-70); Platelet Count 310 K/mm3 (150-450); RBC Distribution Width CV 14.1 % (11.6-14.6); RBC Distribution Width SD 45.4 fl (35.1-43.9); Red Blood Count 3.32 M/mm3 (4.2-5.4); White Blood Count 6.5 K/mm3 (4.4-11.0)
== END ==
LOC: OLS.WHLEAS 05:00
PROVIDERS: PCP Internal Medicine; Visit Provider Internal Medicine
DX: E11.22 Type 2 diabetes mellitus with diabetic chronic kidney disease (principal); E11.65 Type 2 diabetes mellitus with hyperglycemia; N18.9 Chronic kidney disease, unspecified
CPT/HCPCS: 36415; 80048; 85025; 85652

== ENCOUNTER 2024-08-19 22:25 | Emergency (ER) | payer MEDICARE, MEDICAID, SELFPAY ==
[2024-08-19 22:26] VITALS: BP 155/67; PULSE 86; RESP 11; TEMP 36.8; BMI 37.2
--- NOTE | 2024-08-19 22:27 | EKG12_ITS ---
Test Reason : REPEAT CP Blood Pressure : / mmHG Vent. Rate : 079 BPM Atrial Rate : 079 BPM P-R Int : 176 ms QRS Dur : 068 ms QT Int : 392 ms P-R-T Axes : 029 -26 -01 degrees QTc Int : 449 ms Normal sinus rhythm Inferior infarct (cited on or before 17-MAR-2017) Anteroseptal infarct (cited on or before 12-DEC-2020) Abnormal ECG Confirmed by OSCAR SANTANA, MIRACLE ([id number]), field map editor JAMAAL CALLES ([id number]) on 08/21/2024 9:37:13 AM Referred By: CON Confirmed By:MIRACLE MOORE MD
--- NOTE | 2024-08-19 22:28 | ED.VIS.CHEST ---
HPI History of Present Illness Chief Complaint: Chest Pain Informant: patient and EMS Narrative Narrative: Brought by EMS from [facility] left-sided chest pain progressive since 6 PM. At rest with symptom started. Pain went up her neck to her back. Slight dyspnea. Denies cardiac history. History of PE DVT few months ago. She is on Eliquis. Recently held for 3 days for dental extraction and this was restarted 3 days ago. She has been compliant. Denies cough. EMS gave aspirin. shelter facility gave 2 nitro states he was transiently. States heaviness. EMS EKG reviewed x 2 normal sinus rhythm no acute findings. She stopped smoking a few years ago. Prior Similar Symptoms: No CVD Risk Factors: Positive for Hypertension, Diabetes, Hypercholesterolemia and Smoking PE Risk Factors: Positive for Prior DVT or PE; Negative for Recent Travel/Surgery or Recent Immobilization [facility] Medical History Anxiety and depression Diabetes mellitus, type 2 Pulmonary emboli Parathyroid disease History of left heart catheterization (LHC) (~05/21/22) CKD (chronic kidney disease) stage 3, GFR 30-59 ml/min Essential hypertension Orthostatic hypotension Hypothyroidism Chronic back pain Obesity (BMI 35.0-39.9 without comorbidity) Normochromic normocytic anemia Hyperlipidemia Former smoker Opiate abuse, continuous Intervertebral disc disorder with radiculopathy of lumbar region Carpal tunnel syndrome Kidney stones Thyroid disease Migraines Stomach ulcer HTN (hypertension) Home Medications ?Medication ?Instructions ?Recorded ?Last Taken ?Type rizatriptan 10 mg tablet 10 mg PO PRN Migraine Symptoms 12/27/17 04/03/24 History atorvastatin 40 mg tablet 40 mg PO QHS #30 tabs 05/21/22 06/19/24 Rx metoprolol succinate 25 mg 25 mg PO DAILY #30 tabs 05/21/22 06/18/24 Rx tablet,extended release 24 hr pantoprazole 40 mg tablet,delayed 40 mg PO DAILY 06/12/22 06/19/24 History release ranolazine 500 mg tablet,extended 500 mg PO BID #60 tabs 06/12/22 06/19/24 Rx release,12 hr midodrine 10 mg tablet 10 mg PO BID 09/09/22 06/20/24 History lorazepam 0.5 mg tablet 0.5 mg PO Q12H anxeity 01/29/23 12/31/23 History quetiapine 25 mg tablet 37.5 mg PO QHS 01/29/23 06/19/24 History acetaminophen 325 mg tablet 650 mg (2 x 325 mg) PO Q6H PRN PRN 11/24/23 06/16/24 Rx Pain 1-10 Or Fever >100.7 #0 tabs melatonin 3 mg tablet 3 mg PO QHS PRN PRN Insomnia #0 11/24/23 06/19/24 Rx tabs sennosides 8.6 mg-docusate sodium 2 tab PO BID PRN PRN Constipation 01/05/24 06/19/24 Rx 50 mg tablet (Stool #0 tabs Softener-Stimulant Laxative) loperamide 2 mg capsule 2 mg PO Q6H PRN loose stool 04/02/24 03/08/24 History (Anti-Diarrheal (loperamide)) nystatin 100,000 unit/gram topical 1 applic topical BID 04/02/24 Unknown History powder (Nyamyc) fluticasone propionate 50 2 spray intranasal DAILY 06/20/24 06/19/24 History mcg/actuation nasal spray,suspension (Aller-Scar) nitroglycerin 0.4 mg sublingual 0.4 mg sublingual Q5M PRN chest 06/20/24 Unknown History tablet pain nystatin 100,000 unit/mL oral 1 ml PO TID 7 days #21 mL 06/20/24 Unknown Rx suspension promethazine 25 mg tablet 25 mg PO Q6H PRN nausea and 06/20/24 Unknown History vomiting ondansetron 4 mg disintegrating 4 mg PO Q8H PRN PRN Nausea #10 tabs 07/08/24 Unknown Rx tablet apixaban 5 mg tablet (Eliquis) 5 mg PO BID 08/19/24 Unknown History bisacodyl 10 mg rectal suppository 10 mg IA DAILY PRN constipation 08/19/24 Unknown History buprenorphine 20 mcg/hour weekly 1 patch topical QWEEK 08/19/24 Unknown History transdermal patch citalopram 10 mg tablet 10 mg PO DAILY 08/19/24 Unknown History dulaglutide 3 mg/0.5 mL 3 mg subcut QWEEK 08/19/24 Unknown History subcutaneous pen injector (Trulicity) fenofibrate 160 mg tablet 160 mg PO DAILY 08/19/24 Unknown History insulin glargine-yfgn 100 unit/mL 48 unit subcut BID 08/19/24 Unknown History (3 mL) subcutaneous pen levothyroxine 125 mcg tablet 125 mcg PO DAILY 08/19/24 Unknown History magnesium citrate (Citrate of 150 ml PO PRN PRN constipation 08/19/24 Unknown History Magnesia oral) magnesium hydroxide 400 mg/5 mL 30 ml PO DAILY PRN constipation 08/19/24 Unknown History oral suspension (Dulcolax (magnesium hydroxide)) potassium chloride 20 mEq 20 meq PO DAILY 08/19/24 Unknown History tablet,extended release(part/cryst) Allergy/AdvReac Type Severity Reaction Status Date / Time celecoxib (From Celebrex) Allergy Itching Verified 08/19/24 22:25 ciprofloxacin (From Cipro) Allergy Swelling Verified 08/19/24 22:25 ciprofloxacin HCl (From Allergy Swelling Verified 08/19/24 22:25 Cipro) codeine Allergy Hives Verified 08/19/24 22:25 ibuprofen Allergy Hives Verified 08/19/24 22:25 naproxen Allergy Hives Verified 08/19/24 22:25 Penicillins Allergy Hives Verified 08/19/24 22:25 tramadol HCl (From Ultram) Allergy Hives Verified 08/19/24 22:25 ketorolac (From Toradol) AdvReac Swelling Verified 08/19/24 22:25 Family History Mother Cancer CVA (cerebral vascular accident) Hypertension Heart disease Myocardial infarction Diabetes Father Asthma Surgical History History of cholecystectomy S/P trigger finger release H/O: hysterectomy Hx of section Social History household members: other details: currently living in a NH for therapy for chronic back pain housing: intermediate Smoking Status: Former smoker Tobacco: How many years used: 46 how long ago did patient quit smoking: Quit 09/2021, smoked 1 ppd since teen until quit. alcohol intake: never substance use type: other details: History of chronic opiate use. Denies abuse. ROS ROS ED Constitutional Constitutional ED: Denies chills, fever(s) or sweats Eyes Eyes: Denies change in vision ENT ENT ED: Denies dysphagia or sore throat Cardiovascular Cardiovascular: Reports chest pain; Denies leg edema, palpitations or racing heartbeat Respiratory/Chest Respiratory/Chest: Reports dyspnea; Denies cough or dyspnea on exertion Gastrointestinal Gastrointestinal: Denies abdominal pain, diarrhea, nausea or vomiting Genitourinary Genitourinary ED: Denies dysuria, hematuria or urinary frequency Musculoskeletal Musculoskeletal: Denies back pain, extremity pain or neck pain Integumentary Denies rash or wounds Neurologic Neurologic: Denies headache(s), paresthesias or weakness EXAM Physical Exam Const Vital Signs: 08/19/24 22:26 08/19/24 22:26 08/19/24 22:27 Temperature 98.3 F Temperature Source Oral Pulse Rate 86 Respiratory Rate 11 L Respiratory Effort Normal Blood Pressure 155/67 H Blood Pressure Mean 96 Pulse Ox Oxygen Delivery Method Room Air 08/19/24 22:36 08/19/24 23:25 08/20/24 00:00 Temperature Temperature Source Pulse Rate 79 78 Respiratory Rate 12 14 Respiratory Effort Blood Pressure 148/75 H 149/68 H Blood Pressure Mean 99 95 Pulse Ox 98 95 98 Oxygen Delivery Method Room Air Room Air Room Air 08/20/24 01:00 08/20/24 02:00 08/20/24 03:00 Temperature Temperature Source Pulse Rate 87 79 82 Respiratory Rate 13 13 13 Respiratory Effort Blood Pressure 146/55 H 125/54 H 127/57 H Blood Pressure Mean 85 77 80 Pulse Ox 96 96 97 Oxygen Delivery Method Room Air Room Air Room Air 08/20/24 04:00 08/20/24 04:37 Temperature 98.2 F Temperature Source Pulse Rate 79 78 Respiratory Rate 16 12 Respiratory Effort Blood Pressure 114/53 L 114/53 L Blood Pressure Mean 73 73 Pulse Ox 97 95 Oxygen Delivery Method Room Air Positive well nourished and well developed General Appearance ED: well developed and NAD HEENT Reports moist mucous membranes normocephalic and atraumatic Eyes EOMs intact bilaterally and conjunctivae normal General Eye ED: Yes normal appearance of both eyes Neck no lymphadenopathy and supple General: Negative for tenderness Chest Wall Chest: Negative for tenderness Resp normal respiratory effort and normal air movement Effort and Inspection: symmetric chest movement; Negative for respiratory distress Cardio regular rate, regular rhythm and no murmurs Peripheral Pulses: pulses 2+ throughout GI normal to inspection, nondistended, normoactive bowel sounds and non-tender Palpation: Negative for guarding or rebound tenderness present Back/Spine no CVA tenderness and no thoracic nor lumbar tenderness Extremity normal to inspection General Extremety ED: Negative for edema or tenderness General Extremity: Negative for edema Neuro oriented x3 and no sensory deficits noted Sensorium / Orientation: awake and alert Skin no rashes or lesions noted and no wounds Heart Score History: Slightly/Non-Suspicious ECG: Normal Age: >45 - <65 years Risk Factors: >/= 3 Risk Factors or History of CAD Troponin: </= Normal Limit Score: 3 MDM MDM MDM Narrative Medical decision making narrative: Interventions / MDM: Differential diagnosis: Diagnosis considered but do not suspect: N/A My EKG interpretation: Sinus rhythm 85, no ST changes, ST-T wave version leads III. Nonspecific EKG #2 at 0007: Sinus rate 79, no ST changes or T wave inversions in lead III nonspecific unchanged from first 1. Imaging independently reviewed and interpreted by myself: 1 view chest x-ray: No acute process. CTA chest: No PE resolve thrombosis per radiology. External documents reviewed: N/A Test considered but not ordered:N/A ED course: Patient in no acute distress. EMS EKG reviewed x 2 no acute process. Will repeat EKG. Will check cardiac labs. Chest x-ray. She has been restarted back on her Eliquis for 3 days symptom started this evening, lower suspicion for PE. Will treat with morphine. Will reevaluate. 2251 chest x-ray negative. Hemoglobin 11.4. White count 9.: 0000: Nursing report pain return patient states transient leaf with morphine. Additional morphine ordered repeat EKG ordered. Will send for CT angiogram of the chest as she had short hold of her Eliquis for her tooth extraction. 0044: Delta troponin negative at 14. CTA chest pending. 0315: CT chest negative. Patient symptom-free. Discussed negative workup. She denies any GI symptoms. At this time with symptom-free negative workup should be discharged with outpatient follow-up. Return precautions. All questions were answered. Re-evaluation: stable Disposition discussed with patient/family/significant other: Patient Case discussed with consulting clinician: N/A This note was generated with RMDMgroupation software. It may contain incorrect words, spelling, and punctuation that were not noted in checking the note before signing. Lab Data Attestation: I reviewed the patient's lab results. Labs: Laboratory Results - last 24 hr 08/19/24 08/20/24 22:13 00:04 WBC 9.0 RBC 4.05 L Hgb 11.4 L Hct 36.0 L MCV 88.9 MCH 28.1 MCHC 31.7 L RDW Std Deviation 45.2 H RDW Coeff of Anisa 14.1 Plt Count 387 MPV 9.8 Immature Gran % (Auto) 0.400 Neut % (Auto) 62.7 Lymph % (Auto) 30.3 [place] % (Auto) 5.2 Eos % (Auto) 1.1 Baso % (Auto) 0.3 Absolute Neuts (auto) 5.6 Absolute Lymphs (auto) 2.72 Nucleated RBC % 0 Sodium 137 Potassium 4.7 Chloride 104 Carbon Dioxide 27.0 Anion Gap 6 BUN 23 H Creatinine 1.16 H Estim Creat Clear Calc 49.77 Est GFR (MDRD) Af Amer 61 Est GFR (MDRD) Non-Af 51 L BUN/Creatinine Ratio 19.8 Glucose 233 H Calcium 8.9 Troponin I High Sens 18 14 Radiography Diagnostic Testing: Clinical Impression(s) from Imaging Studies Chest X-Ray 08/19/24 22:45 IMPRESSION: No radiographic evidence of acute cardiopulmonary disease. Electronically Signed: Olya Cottrell MD at 1:09 EDT Reading Location ID and State: [facility] / [place] Tel , Service support , Chest CTA 08/20/24 00:04 IMPRESSION: 1. No acute intrathoracic abnormality. No residual or recurrent PE. 2. Coronary artery calcifications and/or stents. Left ventricular wall and septal hypertrophy. Electronically Signed: Olya Cottrell MD at 1:29 EDT , Discharge Plan Triage Chief Complaint: Chest Pain ED Provider: Raúl Alejo Dx/Rx/DC Orders Clinical Impression: Chest pain, Hx of pulmonary embolus Instructions: ED Chest Pain, Uncertain Cause Prescriptions: No Action pantoprazole 40 mg tablet,delayed release (DR/EC) 40 mg PO DAILY ranolazine 500 mg tablet extended release 12 hr 500 mg PO BID Qty: 60 11RF midodrine 10 mg tablet 10 mg PO BID rizatriptan 10 tablet 10 mg PO PRN Patient Comments: metoprolol succinate 25 mg Tablet Extended Release 24 Hr 25 mg PO DAILY Qty: 30 2RF atorvastatin 40 mg tablet 40 mg PO QHS Qty: 30 2RF quetiapine 25 mg tablet 37.5 mg PO QHS lorazepam 0.5 mg tablet 0.5 mg PO Q12H acetaminophen 325 mg Tablet 650 mg PO Q6H PRN PRN (Reason: Pain 1-10 Or Fever >100.7) Qty: 0 0RF melatonin 3 mg Tablet 3 mg PO QHS PRN PRN (Reason: Insomnia) Qty: 0 0RF nystatin [Nyamyc] 100,000 unit/gram powder 1 applic topical BID loperamide [Anti-Diarrheal (loperamide)] 2 mg capsule 2 mg PO Q6H PRN (Reason: loose stool) magnesium hydroxide [Dulcolax (magnesium hydroxide)] 400 mg/5 mL suspension 30 ml PO DAILY PRN (Reason: constipation) magnesium citrate [Citrate of Magnesia] Solution 150 ml PO PRN PRN (Reason: constipation) bisacodyl 10 mg suppository 10 mg IA DAILY PRN (Reason: constipation) Trulicity 3 mg/0.5 mL pen injector 3 mg subcut QWEEK citalopram 10 mg tablet 10 mg PO DAILY potassium chloride 20 mEq Tablet,Er Particles/Crystals 20 meq PO DAILY levothyroxine 125 mcg tablet 125 mcg PO DAILY fenofibrate 160 mg tablet 160 mg PO DAILY buprenorphine 20 mcg/hour patch weekly 1 patch topical QWEEK Eliquis 5 mg Tablet 5 mg PO BID insulin glargine-yfgn 100 unit/mL (3 mL) Insulin Pen 48 unit subcut BID sennosides-docusate sodium [Stool Softener-Stimulant Laxat] 8.6-50 mg Tablet 2 tab PO BID PRN PRN (Reason: Constipation) Qty: 0 0RF nitroglycerin 0.4 mg tablet, sublingual 0.4 mg sublingual Q5M PRN (Reason: chest pain) Rx Instructions: do not exceed 3 doses per episode fluticasone propionate [Aller-Scar] 50 mcg/actuation spray,suspension 2 spray intranasal DAILY Rx Instructions: administer into each nostril promethazine 25 mg tablet 25 mg PO Q6H PRN (Reason: nausea and vomiting) ondansetron 4 mg tablet,disintegrating 4 mg PO Q8H PRN PRN (Reason: Nausea) Qty: 10 0RF nystatin 100,000 unit/mL suspension 1 ml PO TID 7 Days Qty: 21 1RF Rx Instructions: swish and swallow Primary Care Provider: Lizet Linares Referrals: Lizet Linares MD [Primary Care Provider] - 3-5 Days Activity Restrictions/Additional Instructions: Cardiac workup negative. Troponin negative x 2. CTA chest negative for any pulmonary embolism. Follow-up with your doctor. Print Language: Italian Disposition Disposition: Home, Self Care Discharge Date/Time: 08/20/24 04:57
[2024-08-19] MEDS: Morphine 4 MG/ML Syringe IV (22:35)
[2024-08-19] MEDS: Ondansetron 4 MG/2 ML Vial IV (22:35)
[2024-08-19 22:36] VITALS: O2SAT 98
--- NOTE | 2024-08-19 22:45 | RAD_ITS ---
EXAM: XR CHEST, 1 VIEW CLINICAL INDICATION: chest pain TECHNIQUE: Frontal view of the chest. COMPARISON: June 12, 2024. April 02, 2024. January 20, 2024. FINDINGS: LUNGS AND PLEURAL SPACES: Unremarkable with the exception of minimal similar linear atelectasis or scarring in the lung bases.. No consolidation or edema. No pneumothorax. No effusion. HEART: Unremarkable. Cardiac silhouette not enlarged. MEDIASTINUM: Central airways and mediastinal contour are unremarkable. BONES/JOINTS: Unremarkable. No acute fracture. SOFT TISSUES: Unremarkable. RAD/Chest 1 View (Portable) IMPRESSION: No radiographic evidence of acute cardiopulmonary disease. Electronically Signed: Olya Cottrell MD at 1:09 EDT ,
[2024-08-19 22:46] LABS: Absolute Lymphocyte Count 2.72 X10^3/uL (0.83-4.51); Absolute Neutrophil Count 5.6 X10^3/uL (2.0-7.7); Basophil# 0.03 X10^3/uL; Basophil% 0.3 % (0-1); Eosinophils% 1.1 % (0-5); Hemoglobin 11.4 g/dL (12.0-15.0); Lymphocyte # 2.72 X10^3/ul (0.83-4.51); Lymphocyte % 30.3 % (19-41); Mean Corp Hgb Conc 31.7 g/dL (32-36); Mean Corpuscular Hgb 28.1 pg (27.0-32.0); Mean Corpuscular Volume 88.9 fL (81-99); Mean Platelet Vol. 9.8 fl (6.2-12.0); Monocyte# 0.47 X10^3/uL; Monocyte% 5.2 % (0-10); NRBC Flagged by Analyzer 0 % (0-5); Neutrophil # 5.63 X10^3/uL (2.7-7.7); Neutrophil % 62.7 % (47-70); Platelet Count 387 K/mm3 (150-450); RBC Distribution Width CV 14.1 % (11.6-14.6); RBC Distribution Width SD 45.2 fl (35.1-43.9); Red Blood Count 4.05 M/mm3 (4.2-5.4)
--- OUTSIDE RECORDS SUMMARY | 2024-08-19 22:53 | XMS RPT_ITS | CCD ---
Author Organization [facility] Care Team Providers Care Talcer Name Role Phone SIXTO CALIXTO Unavailable Unavailable SIXTO CALIXTO Unavailable Unavailable CARLEE FRANCO Unavailable Unavailable Wil CASTANO, Angelika Cross Unavailable Unavailab le Calixto, Tj L Unavailable Unavailable Calixto, Tj L Unavailable Unavailable Calixto, Tj L Unavailable Unavailable No Family Physician given Unavailable Unavai lable Calixto, Tj L Unavailable Unavailable No Family Physician given Unavailable Unavai lable Calixto, Tj L Unavailable Unavailable No Family Physician given Unavailable Unavai lable Unavailable Primary Care Provider Unavailabl e Unavailable Primary Care Provider UnavailDwayne Issa MD Primary Care Provider Dwayne Lopez MD Primary Care Provider Unavailable Primary Care Provider UnavailDWAYNE Issa Primary Care Unavailab DWAYNE Ma Primary Care Unavailab brenda Allergies Allergy Classification Reported Allergen(s) Allergy Type Date of Onset Reaction(s) Facility (20 sources) ciprofloxacin; Translations: [CIPROFLOXACIN] Drug Allergy 8 Swelling [facility] Repository (20 sources) codeine; Translations: [CODEINE] Drug Allergy 4 Hives, Itching [facility] Repository (20 sources) ibuprofen; Translations: [IBUPROFEN] Drug Allergy 7 [facility] Repository (20 sources) metFORMIN; Translations: [METFORMIN] Drug Allergy 7 Intolerance [facility] Repository (20 sources) naproxen; Translations: [NAPROXEN] Drug Allergy 7 [facility] Repository (20 sources) Penicillins; Translations: [PENICILLINS] Propensity to adverse reactions (disorder) 7 [facility] Repository (20 sources) traMADol; Translations: [TRAMADOL HCL] Drug Allergy 7 [facility] Repository (1 source) Ciprofloxacin Drug Allergy 7 [facility] Work Phone: (1 source) Ketorolac Drug Allergy itching [facility] Work Phone: (1 source) Naproxen Drug Allergy 0 eyes swell, hives [facility] Work Phone: (1 source) Penicillin V Drug Allergy hives [facility] Work Phone: (1 source) traMADol Drug Allergy face swells [facility] Work Phone: (20 sources) celecoxib; Translations: [CELECOXIB] Drug Allergy 0 Rash [facility] (20 sources) Ketorolac; Translations: [KETOROLAC] Drug Allergy 9 GI Upset [facility] Work Phone: Medications Current Medications Medication Drug Class(es) Dates Sig (Normalized) Sig (Original) aspirin 81 mg chewable tablet (20 sources) Platelet Aggregation Inhibitor, Nonsteroidal Anti-inflammatory Drug Start: 06-29-2019 aspirin 81 mg chewable tablet DAILY@0800 0 06/29/2019 Active End: 07-28-2017 take 1 tablet by mouth once daily ASPIRIN LOW DOSE 81 MG TABS one tablet by mouth daily ASPIRIN [id number] Brenda Arthur MD Comment on above: DAILY@0800 atorvastatin 40 mg oral tablet (20 sources) HMG-CoA Reductase Inhibitor Start: 3 End: 3 take 1 tablet by mouth once daily atorvastatin (LIPITOR) 40 mg tablet Take 1 tablet by mouth once daily. 90 tablet 0 08/18/2023 Active Start: 10-15-2020 End: 04-07-2023 take 1 tablet by mouth once daily for hyperlipidemia atorvastatin (LIPITOR) 80 mg tablet Indications: Hyperlipidemia with target LDL less than 100 Take 1 tablet by mouth once daily. For cholesterol. 30 tablet 11 10/15/2020 04/07/2023 Discontinued (Other) Comment on above: Take 1 tablet by dmitry once daily. For cholesterol. Take 40 mg by mouth once daily. Take 1 tablet by dmitry once daily. Blood-Glucose Meter (FREESTYLE LITE METER) monitoring kit (20 sources) Start: 04-07-2023 Blood-Glucose Meter (FREESTYLE LITE METER) monitoring kit Indications: Diabetes mellitus type 2 with neurological manifestations (HCC) , Hyperlipidemia associated with type 2 diabetes mellitus (HCC) (HCC) Free style lite Insulinx 1 Each 0 04/07/2023 Active Start: 04-07-2023 Blood-Glucose Meter (FREESTYLE LITE METER) monitoring kit Indications: Diabetes mellitus type 2 with neurological manifestations (HCC) , Hyperlipidemia associated with type 2 diabetes mellitus (HCC) Free style lite Insulinx 1 Each 0 04/07/2023 Active Start: 12-26-2019 End: 04-07-2023 Blood-Glucose Meter (FREESTY LE LITE METER) monitoring kit Indications: Diabetes mellitus type 2 with neurological manifestations (HCC) , Hyperlipidemia associated with type 2 diabetes mellitus (HCC) Free style lite Insulinx 1 Each 0 12/26/2019 04/07/2023 Discontinued Start: 12-26-2019 Blood-Glucose Meter (FREESTYLE LITE METER) monitoring kit Indications: Diabetes mellitus type 2 with neurological manifestations (HCC) , Hyperlipidemia associated with type 2 diabetes mellitus (HCC) Free style lite Insulinx 1 Each 0 12/26/2019 Active Comment on above: Free style lite Insu linx clindamycin 300 mg oral capsule (1 source) Lincosamide Antibacterial Start: End: take 1 capsule by mouth three times daily clindamycin (CLEOCIN) 300 mg capsule Indications: Toothache Take 1 capsule by mouth three times daily for 7 days. 21 capsule 0 04/23/2023 04/30/2023 Active Comment on above: Take 1 capsule by mo [facility] three times daily for 7 days. dulaglutide (TRULICITY) 3 mg/0.5 mL pen injector (20 sources) Start: inject 3 mg by subcutaneous injection every week dulaglutide (TRULICITY) 3 mg/0.5 mL pen injector Inject 3 mg subcutaneously one time a week. 6 mL 0 08/18/2023 Active Start: 05-21-2023 End: 08-18-2023 inject 3 mg by subcutaneous injection every week dulaglutide (TRULICITY) 3 mg/0.5 mL pen injector Inject 3 mg subcutaneously one time a week. 6 mL 0 05/21/2023 08/18/2023 Discontinued Start: 05-21-2023 inject 3 mg by subcu taneous injection every week dulaglutide (TRULICITY) 3 mg/0.5 mL pen injector Inject 3 mg subcutaneously one time a week. 6 mL 0 05/21/2023 Active End: 05-20-2023 inject 3 mg by subcutaneous injection every week dulaglutide (TRULICITY) 3 mg/0.5 mL pen injector Inject 3 mg subcutaneously one time a week. 0 05/20/2023 Discontinued inject 3 mg by subcu taneous injection every week dulaglutide (TRULICITY) 3 mg/0.5 mL pen injector Inject 3 mg subcutaneously one time a week. 0 Active Comment on above: Inject 3 mg subcutan eously one time a week. fluticasone propionate 0.05 mg/actuat metered dose nasal spray (15 sources) Corticosteroid Start: take 2 spray(s) by mouth once daily fluticasone (FLONASE) 50 mcg/actuation nasal spray Use 2 Sprays in each nostril once daily. Rinse mouth after use. 1 Each 0 08/10/2023 Active Start: 03-12-2010 End: 07-28-2017 take 2 spray(s) nasal route once daily FLONASE 50 MCG/ACT SUSP 2spray/nostril daily FLUTICASONE PROPIONATE [id number] Angelika De La Torre LPN Comment on above: Use 2 Sprays in each nostril once daily. Rinse mouth after use. 3 ml insulin glargine 100 unt/ml pen injector (20 sources) Insulin Analog Start: 04-07-2023 insulin glargine (LANTUS SOLOSTAR U-100 INSULIN) 100 unit/mL (3 mL) Inject 60 Units subcutaneously daily at bedtime. 5 Each 04/07/2023 Active Start: 04-07-2023 End: 04-07-2023 insulin glargine (LANTUS STEVIE OSTAR U-100 INSULIN) 100 unit/mL (3 mL) Inject 60 Units subcutaneously daily at bedtime. 5 Each 11 04/07/2023 Active Start: 03-29-2020 End: 04-07-2023 insulin glargine (LANTUS STEVIE OSTAR U-100 INSULIN) 100 unit/mL (3 mL) Inject 42 Units subcutaneously daily at bedtime. 5 Pen 11 03/29/2020 04/07/2023 Discontinued (Adjust Sig - Block E-Cancel) Start: 08-14-2010 LANTUS SOLN 50 units at bedtime INSULIN GLARGINE SOLN [id number] Brenda Arthur MD Start: 03-10-2010 LANTUS SOLOSTA R SOPN 42 units at bedtimes INSULIN GLARGINE SOLN [id number] Brenda Arthur MD LANTUS SOLN 42 u nits at bedtime INSULIN GLARGINE SOLN [id number] Brenda Arthur MD LANTUS SOLOSTAR SOPN 32 units at bedtimes INSULIN GLARGINE SOLN [id number] Beth Doyle MA Comment on above: Inject 42 Units subc utaneously daily at bedtime. Inject 60 Units subc utaneously daily at bedtime. 3 ml insulin lispro 100 unt/ml pen injector (20 sources) Insulin Analog Start: 12-26-2019 insulin lispro (HUMALOG KWIKPEN INSULIN) 100 unit/mL Indications: Diabetes mellitus type 2 with neurological manifestations (HCC) Inject 14 Units subcutaneously w MEALS. 15 mL 11 12/26/2019 Active Start: 07-28-2017 HUMALOG SOLN a s directed INSULIN LISPRO SOLN [id number] Angelika De La Torre LPN insulin lispro ( HUMALOG KWIKPEN) 100 unit/mL Inject 15 Units subcutaneously three times daily before meals. 0 Active Comment on above: Inject 14 Units subc utaneously w MEALS. Inject 15 Units subc utaneously three times daily before meals. levothyroxine sodium 0.175 mg oral tablet (20 sources) l-Thyroxine Start: 020 take 1 tablet by mouth once daily for thyroid dysfunction levothyroxine (SYNTHROID) 175 mcg tablet Take 1 tablet by mouth once daily. Take on empty stomach. For Thyroid. 30 tablet 11 10/15/2020 Active Start: 07-28-2017 SYNTHROID TABS as directed LEVOTHYROXINE SODIUM TABS [id number] Angelika De La Torre EYAD Start: 08-14-2010 End: 07-28-2017 take 1 tablet by mouth once daily LEVOTHYROXINE SODIUM 75 MCG TABS One tablet by mouth daily LEVOTHYROXINE SODIUM [id number] Brenda Arthur MD Comment on above: Take 1 tablet by dmitry once daily. Take on empty stomach. For Thyroid. midodrine hydrochloride 10 mg oral tablet (20 sources) alpha-Adrenergic Agonist take 1 tablet by mouth twice daily, then take 6 tablets by mouth every four hours midodrine (PROAMATINE) 10 mg tablet Take 10 mg by mouth twice daily. Take last dose no later than 6 pb or within 4 hours of sleep 0 Active Comment on above: Take 10 mg by mouth twice daily. Take last dose no later than 6 pb or within 4 hours of sleep pantoprazole 40 mg delayed release oral tablet (20 sources) Proton Pump Inhibitor Start: 03-24-20 End: 06-22-20 take 1 tablet by mouth twice daily before mealtime pantoprazole DR (PROTONIX) 40 mg tablet Indications: Globus sensation , Gastroesophageal reflux disease, unspecified whether esophagitis present Take 1 tablet by mouth twice daily. Take on empty stomach, 1/2 hr before meal. 60 tablet 2 03/24/2023 Active Comment on above: Take 1 tablet by dmitry twice daily. Take on empty stomach, 1/2 hr before meal. rizatriptan 10 mg oral tablet (20 sources) Serotonin-1b and Serotonin-1d Receptor Agonist Start: 04-18-20 take 1 tablet by mouth every two hours as needed for headache, then take 3 tablets by mouth once as needed for headache rizatriptan (MAXALT) 10 mg tablet TAKE 1 TABLET BY MOUTH needed for FOR MIGRAINE headache. May repeat every 2 (TWO) hours as needed for migraine.Max of 3 (THREE) tablets per 6 tablet 1 04/18/2020 Active Comment on above: TAKE 1 TABLET BY DMITRY TH needed for FOR MIGRAINE headache. May repeat every 2 (TWO) hours as needed for migraine.Max of 3 (THREE) tablets per terbinafine 250 mg oral tablet (8 sources) Allylamine Antifungal Start: 04-07-20 End: 07-06-20 take 1 tablet by mouth once daily terbinafine HCl (LAMISIL) 250 mg tablet Indications: Onychomycosis Take 1 tablet by mouth once daily. 30 tablet 2 04/07/2023 07/06/2023 Active Comment on above: Take 1 tablet by dmitry once daily. Completed/Discontinued Medications Medication Drug Class(es) Dates Sig (Normalized) Sig (Original) ALPRAZolam 0.5 mg oral tablet (2 sources) Benzodiazepine End: 08-14-2010 XANAX 0.5 MG TABS 2 tablets once daily as needed for anxiety attacks ALPRAZOLAM [id number] Beth oDyle MA azithromycin 250 mg oral tablet (1 source) Macrolide Antimicrobial Start: 07-28-2017 AZITHROMYCIN 250 MG TABS 2 tablets today, then 1 tablet daily on days 2 through 11 AZITHROMYCIN [id number] Michael REYNOLDS busPIRone hydrochloride 10 mg oral tablet (2 sources) Start: 03-10-2010 End: 08-14-2010 take 1 tablet by mouth twice daily BUSPAR 10 MG TABS One tablet by mouth twice daily BUSPIRONE HCL [id number] Brenda Arthur MD cholecalciferol 0.05 mg chewable tablet (6 sources) Vitamin D Start: 12-26-2019 End: 04-07-2023 take 1 tablet by mouth once daily cholecalciferol, vitamin D3, 2,000 unit chew Take 1 tablet by mouth once daily. 30 tablet 11 12/26/2019 04/07/2023 Discontinued (Other) Comment on above: Take 1 tablet by dmitry once daily. CITALOPRAM HYDROBROMIDE TABS (1 source) Serotonin Reuptake Inhibitor Start: 07-28-2017 CELEXA TABS as directed CITALOPRAM HYDROBROMIDE TABS [id number] Angelika De La Torre LPN cyclobenzaprine hydrochloride 10 mg oral tablet (2 sources) Muscle Relaxant Start: 01-20-2012 End: 07-28-2017 take 1 tablet by mouth three times daily as needed FLEXERIL 10 MG TABS One tablet by mouth three times daily as needed CYCLOBENZAPRINE HCL [id number] Yaw Cabrera MD insulin lispro (HUMALOG KWIKPEN) 100 unit/mL (10 sources) insulin lispro (HUMALOG KWIKPEN) 100 unit/mL Inject 15 Units subcutaneously three times daily before meals. 0 Active Comment on above: Inject 15 Units subc utaneously three times daily before meals. INSULIN ASPART PROT & ASPART SUSP (1 source) Insulin Analog NOVOLOG MIX 70/3 0 FLEXPEN SUPN three times daily, sliding scale INSULIN ASPART PROT & ASPART SUSP [id number] Beth K Angle MA 3 ml insulin, aspart, human 100 unt/ml pen injector (2 sources) Insulin Analog Start: 03-10-2010 End: 07-28-2017 NOVOLOG FLEXPEN SOLN 12 units SC at breakfast, 10 units SC at lunch, 10 units SC at supper INSULIN ASPART SOLN [id number] Angelika De La Torre LPN lidocaine 0.04 mg/mg topical gel (6 sources) Antiarrhythmic, Amide Local Anesthetic Start: 04-19-2020 End: 04-07-2023 lidocaine 4 % gel Apply to affected area as needed. 30 g 0 04/19/2020 04/07/2023 Discontinued (Other) Comment on above: Apply to affected ar ea as needed. lisinopril 10 mg oral tablet (2 sources) Angiotensin Converting Enzyme Inhibitor Start: 08-14-2010 End: 07-28-2017 take 1 tablet by mouth once daily LISINOPRIL 10 MG TABS One tablet by mouth daily LISINOPRIL [id number] Brenda Arthur MD loperamide hydrochloride 2 mg oral tablet (3 sources) Opioid Agonist End: 04-07-2023 loperamide HCl (IMODIUM) 2 mg tab Take 2 mg by mouth as needed. 0 04/07/2023 Discontinued (Other) take 1 tablet by mouth once as n eeded loperamide HCl (IMODIUM A-D) 2 mg tab Take 2 mg by mouth as needed. 0 Active Comment on above: Take 2 mg by mouth a s needed. metoprolol tartrate 25 mg oral tablet (2 sources) beta-Adrenergic Jorden Start: 010 End: 017 METOPROLOL TARTRATE 25 MG TABS 1/2 tablet orally twice daily METOPROLOL TARTRATE [id number] Angelika De La Torre LPN mupirocin 0.02 mg/mg topical ointment (6 sources) RNA Synthetase Inhibitor Antibacterial Start: 022 End: mupirocin (BACTROBAN) 2 % ointment Apply to affected area three times daily. 15 g 1 10/31/2021 04/07/2023 Discontinued (Other) Comment on above: Apply to affected ar ea three times daily. omeprazole 20 mg delayed release oral capsule (4 sources) Proton Pump Inhibitor Start: End: omeprazole (PRILOSEC) 20 mg capsule Indications: Vitamin D deficiency take 1 capsule daily 30 minutes before breakfast 30 capsule 11 04/18/2020 03/24/2023 Discontinued Comment on above: take 1 capsule daily 30 minutes before breakfast oxyCODONE hydrochloride 30 mg oral tablet (1 source) Opioid Agonist Start: take 1 tablet by mouth four times daily as needed OXYCODONE HCL 30 MG TABS One tablet by mouth four times daily PRN OXYCODONE HCL [id number] Yaw Cabrera MD triamcinolone acetonide 1 mg/ml topical cream (1 source) Corticosteroid Start: End: TRIAMCINOLONE ACETONIDE 0.1 % CREA affected area twice daily TRIAMCINOLONE ACETONIDE [id number] Brenda Arthur MD CHOLECALCIFEROL CAPS (1 source) Start: VITAMIN D CAPS as directed CHOLECALCIFEROL CAPS [id number] Angelika De La Torre LPN Problems Active Problems Problem Classification Problem Date Documented Da te Episodic/Chronic Anxiety disorders (1 source) Panic attack; Translations: [Panic disorder [episodic paroxysmal anxiety]] Onset: 0 03-10-2010 Chronic Blindness and vision defects (1 source) Eye / vision finding; Translations: [Unspecified visual disturbance] Episodic Chronic kidney disease (20 sources) Chronic kidney disease stage 3A ; Translations: [Stage 3a chronic kidney disease (HCC)] Onset: 3 Chronic Diabetes mellitus with complications (20 sources) Type 1 diabetes mellitus uncontrolled; Translations: [Hyperlipidemia] Onset: 4 03-10-2010 Chronic Disorders of teeth and jaw (1 source) Toothache; Translations: [Other specified disorders of teeth and supporting structures] Episodic Esophageal disorders (2 sources) Gastroesophageal reflux disease; Translations: [Gastro-esophageal reflux disease without esophagitis] Onset: 3 03-10-2010 Chronic Essential hypertension (1 source) Benign essential hypertension; Translations: [Essential (primary) hypertension] Onset: 0 08-14-2010 Chronic Gastroduodenal ulcer (except hemorrhage) (20 sources) Gastric ulcer; Translations: [Gastric ulcer, unspecified as acute or chronic, without hemorrhage or perforation] Onset: 4 02-27-2016 Chronic Immunizations and screening for infectious disease (3 sources) Patient encounter status; Translations: [Encounter for immunization] Episodic Malaise and fatigue (1 source) Asthenia; Translations: [Weakness] Episodic Nutritional deficiencies (20 sources) Vitamin D deficiency; Translations: [Vitamin D deficiency, unspecified] Onset: 0 12-26-2019 Chronic Other circulatory disease (2 sources) Feeling of lump in throat; Translations: [Other specified symptoms and signs involving the circulatory and respiratory systems] Episodic Other endocrine disorders (20 sources) Hyperparathyroidism; Translations: [Hyperparathyroidism, unspecified] Onset: 8 09-15-2017 Chronic Other gastrointestinal disorders (1 source) Acute constipation; Translations: [Constipation, unspecified] Episodic Other nutritional; endocrine; and metabolic disorders (8 sources) Obesity; Translations: [Other obesity due to excess calories] Onset: 0 03-10-2010 Chronic Other nutritional; endocrine; and metabolic disorders (19 sources) Obesity caused by energy imbalance; Translations: [Other obesity due to excess calories] Onset: 9 09-04-2019 Chronic Spondylosis; intervertebral disc disorders; other back problems (20 sources) Degeneration of lumbar intervertebral disc; Translations: [...] Date Documented Da te Episodic/Chronic Abdominal hernia (20 sources) Incisional hernia; Translations: [Incisional hernia without obstruction or gangrene] Onset: 09-04-2019 09-04-2019 Episodic Abdominal pain (10 sources) Epigastric pain; Translations: [Epigastric pain] Onset: 05-15-2014 Resolved: 06-03-2015 06-03-2015 Episodic Allergic reactions (20 sources) Eczema; Translations: [Dermatitis, unspecified] Onset: 12-26-2019 12-26-2019 Episodic Calculus of urinary tract (20 sources) Kidney stone; Translations: [Calculus of kidney] Onset: 10-05-2008 03-05-2009 Episodic Chronic obstructive pulmonary disease and bronchiectasis (1 source) Bronchitis; Translations: [Bronchitis, not specified as acute or chronic] Onset: 07-28-2017 07-28-2017 Episodic Crushing injury or internal injury (20 sources) Injury of kidney; Translations: [Unspecified injury of unspecified kidney, initial encounter] Onset: 11-21-2018 11-21-2018 Episodic Deficiency and other anemia (5 sources) Anemia; Translations: [Anemia, unspecified] Onset: 03-12-2015 Resolved: 02-27-2016 02-27-2016 Episodic Fluid and electrolyte disorders (20 sources) Hyponatremia; Translations: [Hypo-osmolality and hyponatremia] Onset: 09-18-2019 09-18-2019 Episodic Genitourinary symptoms and ill-defined conditions (20 sources) Blood in urine; Translations: [Hematuria, unspecified] Onset: 01-22-2017 01-22-2017 Episodic Mood disorders (5 sources) Depressive disorder; Translations: [Other specified depressive episodes] Onset: 10-05-2008 Resolved: 02-27-2016 02-27-2016 Chronic Mycoses (20 sources) Onychomycosis; Translations: [Tinea unguium] Onset: 04-07-2023 04-07-2023 Episodic Nonmalignant breast conditions (20 sources) Lump in left breast; Translations: [Unspecified lump in the left breast, unspecified quadrant] Onset: 12-26-2019 12-26-2019 Episodic Nonspecific chest pain (2 sources) Atypical chest pain; Translations: [Other chest pain] Onset: 03-10-2010 Resolved: 08-14-2010 08-14-2010 Episodic Other and unspecified benign neoplasm (20 sources) Benign neoplasm of colon; Translations: [Benign neoplasm of colon, unspecified] Onset: 05-15-2014 05-15-2014 Episodic Other circulatory disease (1 source) Choking; Translations: [Unspecified foreign body in larynx causing other injury] Onset: 03-10-2010 03-10-2010 Episodic Other connective tissue disease (20 sources) Triggering of digit; Translations: [Trigger finger, right ring finger] Onset: 01-28-2016 01-28-2016 Episodic Other connective tissue disease (20 sources) Radial styloid tenosynovitis; Translations: [Radial styloid tenosynovitis [de Quervain]] Onset: 04-02-2016 04-02-2016 Episodic Other connective tissue disease (20 sources) Trigger thumb of right hand; Translations: [Trigger thumb, right thumb] Onset: 04-02-2016 04-02-2016 Episodic Other connective tissue disease (20 sources) Trigger finger of right hand; Translations: [Trigger finger, unspecified finger] Onset: 06-22-2017 06-22-2017 Episodic Other connective tissue disease (5 sources) Trigger thumb of left hand; Translations: [Trigger thumb, left thumb] Onset: 07-23-2015 Resolved: 01-27-2017 01-27-2017 Episodic Other gastrointestinal disorders (5 sources) Constipation; Translations: [Constipation, unspecified] Onset: 03-12-2015 Resolved: 06-03-2015 06-03-2015 Episodic Other inflammatory condition of skin (1 source) Pruritus of skin; Translations: [Pruritus, unspecified] Onset: 08-14-2010 08-14-2010 Episodic Other nervous system disorders (5 sources) Carpal tunnel syndrome of left wrist; Translations: [Carpal tunnel syndrome, left upper limb] Onset: 05-27-2015 Resolved: 01-27-2017 01-27-2017 Chronic Other nervous system disorders (5 sources) Carpal tunnel syndrome of right wrist; Translations: [Carpal tunnel syndrome, right upper limb] Onset: 05-27-2015 Resolved: 01-27-2017 01-27-2017 Chronic Other nutritional; endocrine; and metabolic disorders (1 source) Abnormal weight loss; Translations: [Abnormal weight loss] Onset: 03-10-2010 03-10-2010 Episodic Other upper respiratory infections (1 source) Upper respiratory infection; Translations: [Acute upper respiratory infection, unspecified] Onset: 07-28-2017 07-28-2017 Episodic Otitis media and related conditions (1 source) Otitis media; Translations: [Otitis media, unspecified, unspecified ear] Onset: 07-28-2017 07-28-2017 Episodic Residual codes; unclassified (20 sources) Disturbance in sleep behavior; Translations: [Sleep disorder, unspecified] Onset: 12-07-2008 02-27-2016 Episodic Spondylosis; intervertebral disc disorders; other back problems (20 sources) Lumbar radiculopathy; Translations: [Radiculopathy, lumbar region] Onset: 09-18-2019 09-18-2019 Episodic Sprains and strains (1 source) Low back strain; Translations: [Strain of muscle, fascia and tendon of lower back] Onset: 01-20-2012 01-20-2012 Episodic Unclassified (5 sources) Type 2 diabetes mellitus without complication; Translations: [Diabetes mellitus type 2, uncontrolled, without complications] Onset: 10-05-2008 Resolved: 02-27-2016 02-27-2016 Results Test Name Value Interpretation Reference Range Facility [facility] 03-31-2024 CNCO Letter Text Normal [facility] CNCOon 02-01-2024 CNCO Letter Text Normal [facility] CNPNon 01-24-2024 CNPN Telephone (FLO) TERRANCE BRAR ([id number]) 1965 F Date Time Provider Department 01/24/24 DWAYNE LOPEZ During your visit today, we recorded the following information about you: Rachel Perea LPN 01/24/2024 1:02 PM Signed Phoned patient to schedule ER follow up visit. Patient reported she is not able to come in this week due their car is being repaired. Agreed to 02/01/24 at 2pm for 40 min visit. Allergies As of Date: 01/24/2024 Noted Allergy Reaction CELEBREX (CELECOXIB) 12/26/2019 2 [...] LPN - Fully Assessed Reason for Visit: Appointment [[id number]] Prescriptions as of 01/24/2024 - dulaglutide (TRULICITY) 3 mg/0.5 mL pen [...] sugar THREE TIMES DAILY - Insulin [place], Disposable, (BD ULTRA-FINE BEN PEN NEEDLE) 32 gauge x 5/32 ndle Use one needle for each dose. four/day. - aspirin 81 mg chewable tablet DAILY@0800 - Lancets lancets Test blood sugar(s) 3 times daily. 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 Normal [facility] CNCOon 01-13-2024 CNCO Letter Text Normal [facility] CNPNon 01-06-2024 CNPN Telephone (FAMWS) TERRANCE BRAR ([id number]) 1965 F Date Time Provider Department 01[facility]06[facility] During your visit today, we recorded the following information about you: Rachel Perea LPN 01/06/2024 1:02 PM Signed Phoned patient and agreeable with 01/13/24 at 2pm for Hosp F/U Allergies As of Date: 01/06/2024 Noted Allergy Reaction CELEBREX (CELECOXIB) 12/26/2019 2 [...] LPN - Fully Assessed Reason for Visit: Appointment [186] Cmt: Hospital follow up (40 min as patient hasn't followed up as advised either [facility] March 2023) Prescriptions as of 01/06/2024 - dulaglutide (TRULICITY) 3 mg/0.5 mL pen [...] sugar THREE TIMES DAILY - Insulin [place], Disposable, (BD ULTRA-FINE BEN PEN NEEDLE) 32 gauge x 5/32 ndle Use one needle for each dose. four/day. - aspirin 81 mg chewable tablet DAILY@0800 - Lancets lancets Test blood sugar(s) 3 times daily. Dx: Type 2 DM - Uncontrolled E11.65 Insulin: Yes Problem List As Of Date 01/06/2024 Noted Resolved Depressive disorder, not elsewhere classified [*10/05/2008 02/27/2016 Diabetes mellitus type 2, uncontrolled, without*10/05/2008 02/27/2016 CALCULUS OF KIDNEY [N20.0] 10/05/2008 Tobacco Use Disorder [F17.200] 10/10/2008 Hyperparathyroidism (HCC) [E21.3] 10/24/2008 Disturbance in sleep behavior [G47.9] 12/07/2008 NONTOX UNINODULAR GOITER [E04.1] 12/07/2008 Routine General Medical Examination at [facility]*12/10/2008 06/03/2015 Benign neoplasm of colon [D12.6] 05/15/2014 [...] [N63.10] 12/26/2019 Vitamin D deficiency [E55.9] 12/26/2019 Onychomycosis [B35.1] 04/07/2023 S (more content not included)... Normal [facility]20[facility] TERRANCE BRAR ([id number]) 1965 F Date Time Provider Department 10/28/23 DELMA NGUYỄN [facility] During your visit today, we recorded the following information about you: Delma Nguyễn [facility] 10/28/2023 3:49 PM Signed Primary Care Pharmacy Rescheduling Outreach Call center, please contact patient and reschedule in person, telephone, and virtual visit for Diabetes management within ~4 week(s). (Visit length: 60 minutes) Thank you, Delma Nguyễn, PharmD Primary Care Clinical Registered Sales Assistant 10/28/2023 3:49 PM Elle Avalos PSS 10/29/2023 12:35 PM Signed Telephoned the patient regarding missed appt. Called pt 3 times, pt picked up the first 2 times and hung up on me as I was talking. 3rd time went to the . I left a message asking pt to c/b to r/s Allergies As of Date: 10/28/2023 Noted Allergy Reaction CELEBREX (CELECOXIB) 12/26/2019 2 [...] LPN - Fully Assessed Reason for Visit: Missed Appointment [1304] Cmt: Pharmacy Visit Rescheduling Prescriptions as of 10/29/2023 - dulaglutide (TRULICITY) 3 mg/0.5 mL pen [...] sugar THREE TIMES DAILY - Insulin [place], Disposable, (BD ULTRA-FINE BEN PEN NEEDLE) 32 gauge x 5/32 ndle Use one needle for each dose. four/day. - aspirin 81 mg chewable tablet DAILY@0800 - Lancets lancets Test blood sugar(s) 3 times daily. Dx: Type 2 DM - Uncontrolled E11.65 Insulin: Yes Problem List As Of Date 10/28/2023 Noted Resolved Depressive disorder, not elsewhere classified [*10/05/2008 02/27/2016 Diabetes mellitus type 2, uncontrolled, without*10/05/2008 02/27/2016 CALCULUS OF KIDNEY [N20.0] 10/05/2008 Tobacco Use Disorder [F17.200] 10/10/2008 Hyperparathyroidism (HCC) [E21.3] 10/24/2008 Disturbance in sleep behavior [G47.9] 12/07/2008 NONTOX UNINODULAR GOITER [E04.1] 12/07/2008 Routine General Medical Examination at [facility]*12/10/2008 06/03/2015 Benign neoplasm of colon [D12.6] 05/15/2014 [...] [M65.351] 06/21/2017 Trigger finger, right [M65.30] 06/22/2017 Elliot (more content not included)... Normal [facility] 10-14-2023 CNPN Telephone (PHARMN) TERRANCE BRAR ([id number]) 1965 F Date Time Provider Department 10/14/23 DINORA MCCALLUM PHARMN During your visit today, we recorded the following information about you: Dinora Mccallum, AMY 10/14/2023 2:17 PM Signed Telephoned the patient to schedule a new Primary Care pharmacy appt. Left a message. Dinora Mccallum PSS 10/15/2023 2:39 PM Signed Telephoned the patient to schedule a new Primary Care pharmacy appt. New appt on 10/28/23. Allergies As of Date: 10/14/2023 Noted Allergy Reaction CELEBREX (CELECOXIB) 12/26/2019 2 [...] LPN - Fully Assessed Reason for Visit: NEW PRIMARY CARE PHARMACY APPT [Other] Prescriptions as of 10/15/2023 - dulaglutide (TRULICITY) 3 mg/0.5 mL pen [...] sugar THREE TIMES DAILY - Insulin [place], Disposable, (BD ULTRA-FINE BEN PEN NEEDLE) 32 gauge x 5/32 ndle Use one needle for each dose. four/day. - aspirin 81 mg chewable tablet DAILY@0800 - Lancets lancets Test blood sugar(s) 3 times daily. Dx: Type 2 DM - Uncontrolled E11.65 Insulin: Yes Problem List As Of Date 10/14/2023 Noted Resolved Depressive disorder, not elsewhere classified [*10/05/2008 02/27/2016 Diabetes mellitus type 2, uncontrolled, without*10/05/2008 02/27/2016 CALCULUS OF KIDNEY [N20.0] 10/05/2008 Tobacco Use Disorder [F17.200] 10/10/2008 Hyperparathyroidism (HCC) [E21.3] 10/24/2008 Disturbance in sleep behavior [G47.9] 12/07/2008 NONTOX UNINODULAR GOITER [E04.1] 12/07/2008 Routine General Medical Examination at [facility]*12/10/2008 06/03/2015 Benign neoplasm of colon [D12.6] 05/15/2014 [...] 12/26/2019 Breast mass, left [N63.20] 12/26/2019 Breast mas (more content not included)... Normal [facility] CNCOon 08-26-2023 CNCO Letter Text Normal [facility] CNOVon 08-10-2023 CNOV Office Visit (UCWSTR ) TERRANCE BRAR ([id number]) 1965 F Date Time Provider Department 08/10/23 4:15 PM VIKTORIYA ROY UCWSTR During your visit today, we recorded the following information about you: Temperature Pulse Respiration Blood pressure 98.6 degrees 80/minute 20/minute 135/82 Weight 84.2 kg Viktoriya Roy PA-C 08/10/2023 6:06 PM Signed This note was created using [employer]. Subjective Terrance Brar is a 58 year [...] 2 diabetes mellitus (HCC) 03/12/2015 Hyperparathyroidism, unspecified ([facility]) 10/24/2008 Hypothyroidism 03/12/2015 Lumbar degenerative disc disease [...] type 2 diabetes mellitus with neurological manifestations ([facility]) 02/27/2016 Current Outpatient Medications Medication Sig Dispense [...] TIMES DAILY 100 Strip 11 Insulin [place], Disposable, (BD ULTRA-FINE BEN PEN NEEDLE) 32 [...] ABDOMINAL SURGERY HX BREAST LUMPECTOMY HX Left (more content not included)... Normal [facility]07[facility]2023 [facility] (FAMPWS[facility] TERRANCE BRAR ([id number]) 1965 F Date Time Provider Department 06/07/23 [facility] During your visit today, we recorded the following information about you: Rachel Perea LPN 06/07/2023 12:59 PM Signed Phoned patient and message left for her to return call to schedule ER follow up visit. Ana Ackerman Ma 06/18/2023 12:33 PM Signed Message left for pt to call back. Shonda Carney Ma, LPN 06/22/2023 3:15 PM Signed Message left for patient to call office back. EYAD Martinez Ma, Rilee 06/24/2023 2:36 PM Signed Letter mailed to pt notifying her we've attempted to reach her by phone to assist in scheduling a hospital f/u. She's scheduled to see MARILEE in June. Pt also went back to ED on 06/10/23 per Triage note. Anh Simms Ma Allergies As of Date: 06/07/2023 Noted Allergy Reaction CELEBREX (CELECOXIB) 12/26/2019 2 [...] throat swelling Date Reviewed: 04/23/2023 Reviewed by: Terrell Degroot APRN.CONSIGNEE - Fully Assessed Reason for Visit: Appointment [186] Cmt: ER follow up visit Prescriptions as of 06/30/2023 - atorvastatin (LIPITOR) 40 mg tablet Take [...] sugar THREE TIMES DAILY - Insulin [place], Disposable, (BD ULTRA-FINE BEN PEN NEEDLE) 32 gauge x 5/32 ndle Use one needle for each dose. four/day. - aspirin 81 mg chewable tablet DAILY@0800 - Lancets lancets Test blood sugar(s) 3 times daily. Dx: Type 2 DM - Uncontrolled E11.65 Insulin: Yes Problem List As Of Date 06/07/2023 Noted Resolved Depressive disorder, not elsewhere classified [*10/05/2008 02/27/2016 Diabetes mellitus type 2, uncontrolled, without*10/05/2008 02/27/2016 CALCULUS OF KIDNEY [N20.0] 10/05/2008 Tobacco Use Disorder [F17.200] 10/10/2008 Hyperparathyroidism (HCC) [E21.3] 10/24/2008 Disturbance in sleep behavior [G47.9] 12/07/2008 NONTOX UNINODULAR GOITER [E04.1] 12/07/2008 Routine General Medical Examination at [facility]*12/10/2008 06/03/2015 Benign neoplasm of colon [D12.6] 05/15/2014 [...] 06/22/2017 Renal stone [N20.0] 01/07/2018 Injury of (more content not included)... Normal [facility] CNOVon 04-23-2023 CNOV Office Visit (UCWSTR ) TERRANCE BRAR ([id number]) 1965 F Date Time Provider Department 04/23/23 2:30 PM TERRELL DEGROOT [facility] During your visit today, we recorded the following information about you: Temperature Pulse Respiration Blood pressure 100 degrees 94/minute 21/minute 130/82 Weight 81.1 kg Terrell Degroot APRN.CONSIGNEE 04/23/2023 3:03 PM Signed Subjective HPI HPI Judital Brar is a 57 year old female [...] 2 diabetes mellitus (HCC) 03/12/2015 Hyperparathyroidism, unspecified ([facility]) 10/24/2008 Hypothyroidism 03/12/2015 Lumbar degenerative disc disease [...] type 2 diabetes mellitus with neurological manifestations ([facility]) 02/27/2016 PAST SURGICAL HISTORY Procedure Laterality Date [...] blood sugar THREE TIMES DAILY Insulin [place], Disposable, (BD ULTRA-FINE BEN PEN NEEDLE) 32 gauge x 5/32 ndle Use one needle for each dose. four/day. aspirin 81 mg chewable tablet DAILY@ (more content not included)... Normal [facility] .Auto Diffon 12-13-2019 Ammonia (P) [Mass/Vol] 0.30 10 3/mcL Normal 0.15-1.00 [facility] ([place]) Comment on above: Performed By: #### HANNAH COSTA #### [address] [address] #### CBC, BAILEY, ANEU #### [address] [address] Basophils (Bld) [#/Vol] 0.00 10 3/mcL Normal 0.00-0.19 [facility] ([place]) Comment on above: Performed By: #### HANNAH COSTA #### [address] [address] #### CBC, BAILEY, ANEU #### [address] [address] Basophils/100 WBC (Bld) 0.5 % Normal 0.0-2.5 [facility] ([place]) Comment on above: Performed By: #### G FR, BMP #### [place] [address] #### CBC, ADIFF, ANEU #### [address] [address] Eosinophils (Bld) [#/Vol] 0.00 10 3/mcL Normal 0.00-0.40 [facility] ([place]) Comment on above: Performed By: #### G FR, BMP #### [place] [address] #### CBC, ADIFF, ANEU #### [address] [address] Eosinophils/100 WBC (Bld) 0.8 % Normal 0.0-7.0 [facility] ([place]) Comment on above: Performed By: #### G FR, BMP #### [place] [address] #### CBC, ADIFF, ANEU #### [address] [address] Lymphocytes (Bld) [#/Vol] 2.00 10 3/mcL Normal 0.77-3.85 [facility] ([place]) Comment on above: Performed By: #### G FR, BMP #### [place] [address] #### CBC, ADIFF, ANEU #### [address] [address] Lymphocytes/100 WBC (Bld) 33.6 % Normal 10.0-50.0 [facility] ([place]) Comment on above: Performed By: #### G FR, BMP #### [place] [address] #### CBC, ADIFF, ANEU #### [address] [address] Monocytes/100 WBC (Bld) 4.7 % Normal 1.7-13.0 [facility] ([place]) Comment on above: Performed By: #### G FR, BMP #### [address] [address] #### CBC, ADIFF, ANEU #### [address] [address] Neutrophils/100 WBC (Bld) 60.4 % Normal 37.0-80.0 [facility] ([place]) Comment on above: Performed By: #### G FR, BMP #### [place] [address] #### CBC, ADIFF, ANEU #### [address] [address] .GFRon 12-13-2019 GFR 54 ml/min/1.73sqm Normal [facility] ([place]) Comment on above: Result Comment: GFR Population mean for , Non- Americans Ages 20-29 = 116 mL/min/1.73 sq.m. Ages 30-39 = 107 mL/min/1.73 sq.m. Ages 40-49 = 99 mL/min/1.73 sq.m. Ages 50-59 = 93 mL/min/1.73 sq.m. Ages 60-69 = 85 mL/min/1.73 sq.m. Ages 70+ = 75 mL/min/1.73 sq.m. Chronic Kidney Disease: Less than 60 mL/min/1.73 square meters End Stage Renal Disease: Less than 15 mL/min/1.73 square meters Performed By: #### G FR, BMP #### [place] [address] #### CBC, ADIFF, ANEU #### [address] [address] GFR Non- 45 ml/min/1.73sqm Normal [facility] ([place]) Comment on above: Result Comment: GFR Population mean for , Non- Americans Ages 20-29 = 116 mL/min/1.73 sq.m. Ages 30-39 = 107 mL/min/1.73 sq.m. Ages 40-49 = 99 mL/min/1.73 sq.m. Ages 50-59 = 93 mL/min/1.73 sq.m. Ages 60-69 = 85 mL/min/1.73 sq.m. Ages 70+ = 75 mL/min/1.73 sq.m. Chronic Kidney Disease: Less than 60 mL/min/1.73 square meters End Stage Renal Disease: Less than 15 mL/min/1.73 square meters Performed By: #### Taco FR, BMP #### [place] [address] #### CBC, ADIFF, ANEU #### [place] [id number] .NEUABSon 12-13-2019 Neutrophils (Bld) [#/Vol] 3.50 10 3/mcL Normal 2.85-6.16 [facility] ([place]) Comment on above: Performed By: #### Taco PEARCE, BMP #### [place] [address] #### CBC, ADIFF, ANEU #### [place] [address] .Urinalysis Microscopic (AO) on 12-13-2019 RBC (U) [#/Vol] LOADED Abnormal None Seen [facility] ([place]) Comment on above: Performed By: #### U AMICAO, UA #### [place] [address] UA Squam Epithelial 0-5 Abnormal None Seen [facility] ([place]) Comment on above: Performed By: #### U AMICAO, UA #### [place] [address] UA WBC 0-5 Abnormal None Seen [facility] ([place]) Comment on above: Performed By: #### U AMICAO, UA #### [place] [address] BMPon 12-13-2019 Calcium [Mass/Vol] 9.2 mg/dL Normal 8.4-10.2 [facility] ([place]) Comment on above: Performed By: #### Taco FR, BMP #### [place] [address] #### CBC, ADIFF, ANEU #### [address] [address] Chloride [Moles/Vol] 90 mmol/L Low 98-107 [facility] ([place]) Comment on above: Performed By: #### G FR, BMP #### [address] [address] #### CBC, ADIFF, ANEU #### [address] [address] CO2 [Moles/Vol] 25 mmol/L Normal 22-29 [facility] ([place]) Comment on above: Performed By: #### G FR, BMP #### [address] [address] #### CBC, ADIFF, ANEU #### [address] [address] Creatinine [Mass/Vol] 1.24 mg/dL High 0.55-1.02 [facility] ([place]) Comment on above: Performed By: #### G FR, BMP #### [place] [address] #### CBC, ADIFF, ANEU #### [address] [address] Electrolyte Balance 11.0 mEq/L Normal [facility] ([place]) Comment on above: Performed By: #### G FR, BMP #### [place] [address] #### CBC, ADIFF, ANEU #### [address] [address] Glucose [Mass/Vol] 697 mg/dL Critically abnormal 70-105 [facility] ([place]) Comment on above: Performed By: #### G FR, BMP #### [address] [address] #### CBC, ADIFF, ANEU #### [address] [address] Potassium [Moles/Vol] 4.0 mmol/L Normal 3.5-5.1 [facility] ([place]) Comment on above: Performed By: #### G FR, BMP #### [address] [address] #### CBC, ADIFF, ANEU #### [address] [address] Sodium [Moles/Vol] 126 mmol/L Low 136-145 [facility] ([place]) Comment on above: Performed By: #### G FR, BMP #### [place] [address] #### CBC, ADIFF, ANEU #### [address] [address] Urea nitrogen [Mass/Vol] 17 mg/dL Normal 7-18 [facility] ([place]) Comment on above: Performed By: #### G FR, BMP #### [place] [address] #### CBC, ADIFF, ANEU #### [address] [address] Urea nitrogen/Creatinin e [Mass ratio] 14 ratio Normal 7-27 [facility] ([place]) Comment on above: Performed By: #### Taco FR, BMP #### [place] [address] #### CBC, ADIFF, ANEU #### [address] [address] CBCon 12-13-2019 Erythrocyte distribution width (RBC) [Ratio] 12.7 % Normal 11.5-14.5 [facility] ([place]) Comment on above: Performed By: #### G FR, BMP #### [place] [address] #### CBC, ADIFF, ANEU #### [address] [address] Hematocrit (Bld) [Volume fraction] 41.3 % Normal 37.0-47.0 [facility] ([place]) Comment on above: Performed By: #### G FR, BMP #### [place] [address] #### CBC, ADIFF, ANEU #### [address] [place] [address] Hemoglobin (Bld) [Mass/Vol] 13.9 G/dL Normal 12.0-16.0 [facility] ([place]) Comment on above: Performed By: #### G FR, BMP #### [place] [address] #### CBC, ADIFF, ANEU #### [address] [address] MCH (RBC) [Entitic mass] 30.5 pg Normal 27.0-31.2 [facility] ([place]) Comment on above: Performed By: #### Taco FR, BMP #### [place] [address] #### CBC, ADIFF, ANEU #### [address] [address] MCHC (RBC) [Mass/Vol] 33.7 G/dL Normal 33.0-37.0 [facility] ([place]) Comment on above: Performed By: #### Taco FR, BMP #### [place] [address] #### CBC, ADIFF, ANEU #### [address] [address] MCV (RBC) [Entitic vol] 90.5 fL Normal 80.0-94.0 [facility] ([place]) Comment on above: Performed By: #### Taco FR, BMP #### [place] [address] #### CBC, ADIFF, ANEU #### [address] [address] Platelet mean volume (Bld) [Entitic vol] 7.9 fL Normal 7.4-10.4 [facility] ([place]) Comment on above: Performed By: #### G FR, BMP #### [place] [address] #### CBC, ADIFF, ANEU #### [address] [address] Platelets (Bld) [#/Vol] 216 10 3/mcL Normal 130-400 [facility] ([place]) Comment on above: Performed By: #### G FR, BMP #### [address] [address] #### CBC, ADIFF, ANEU #### [place] [address] [place], [place] [address] RBC (Bld) [#/Vol] 4.56 10 6/mcL Normal 4.20-5.40 [facility] ([place]) Comment on above: Performed By: #### G FR, BMP #### [address] [address] #### CBC, ADIFF, ANEU #### [address] [address] WBC (Bld) [#/Vol] 5.80 10 3/mcL Normal 4.60-10.80 [facility] ([place]) Comment on above: Performed By: #### G FR, BMP #### [address] [address] #### CBC, ADIFF, ANEU #### [address] [address] [address] ABDOMEN/PELVIS W/O CONTRA STon 12-13-2019 CT ABDOMEN/PELVIS W/O CONTRAST ORIGINAL CT ABDOMEN/PELVIS W/O CONTRAST This exam was performed according to our departmental dose optimization program, and includes the following measures where applicable: automated exposure control, adjustment of the mAs and/or kVp according to patient size and/or exam, and an iterative reconstruction algorithm. CLINICAL STATEMENT: right flank pain COMPARISON: 01/14/2019 FINDINGS: The visualized lung bases are noncontributory. Unenhanced morphology of liver, spleen, pancreas, and adrenal glands is unremarkable. Liver and splenic coarse calcifications are without change. Kidneys are symmetric in size. There are no renal stones. There is no hydronephrosis. The ureters are normal in course and caliber. Stomach is not distended. The abdominal aorta is normal in caliber and demonstrates moderate atherosclerotic calcification. There is a fat-containing umbilical hernia. There are no dilated segments of small or large bowel. The appendix is normal. Patient is status post hysterectomy. Bladder is unremarkable. There are no suspicious bone lesions. IMPRESSION: 1. No renal stones. No hydronephrosis. 2. Normal appendix. Interpreted By: Racquel Coats MD Preliminary Report By: Racquel Coats MD Electronically Signed By: Racquel Coats MD Dictated Date: 12/13/2019 3:32:10 PM Prelim Date: 12/13/2019 3:32:10 PM Sign Date: 12/13/2019 3:36:55 PM Ordering Provider:Fermin Turner Normal [facility] ([place]) UAon 12-13-2019 Color (U) Light yellow Normal [facility] ([place]) Comment on above: Performed By: #### U AMICAO, UA #### [place] [address] Glucose (U) [Mass/Vol] 500 mg/dL Abnormal Negative [facility] ([place]) Comment on above: Performed By: #### U AMICAO, UA #### [place] [id number] Ketones Ql (U) Negative Normal Negative [facility] ([place]) Comment on above: Performed By: #### U AMICAO, UA #### [address] [address] UA Appear Slightly Cloudy Abnormal Clear [facility] ([place]) Comment on above: Performed By: #### U AMICAO, UA #### [address] [address] UA Blood Large Abnormal Negative [facility] ([place]) Comment on above: Performed By: #### U AMICAO, UA #### [address] [address] UA Leuk Est Negative Normal Negative [facility] ([place]) Comment on above: Performed By: #### U AMICAO, UA #### [address] [address] UA Nitrite Negative Normal Negative [facility] ([place]) Comment on above: Performed By: #### U AMICAO, UA #### [place] [id number] UA pH 5.0 Normal 5.0 - 8.0 [facility] ([place]) Comment on above: Performed By: #### U AMICAO, UA #### [facility] [address] [place] [address] UA Protein Negative Normal Negative [facility] ([place]) Comment on above: Performed By: #### U AMICAO, UA #### [facility] [address] [place] [address] UA Spec Grav <=1.005 Abnormal 1.015-1.025 [facility] ([place]) Comment on above: Performed By: #### U AMICAO, UA #### [facility] [address] [place] [address] UA Specimen Type Clean Catch Normal [facility] ([place]) Comment on above: Performed By: #### U AMICAO, UA #### [address] [address] UA Urobilinogen 0.2 E.U./dL Normal 0.2-1.0 [facility] ([place]) Comment on above: Performed By: #### U AMICAO, UA #### [address] [address] Urobilinogen Qn (U) Negative Normal Negative [facility] ([place]) Comment on above: Performed By: #### U AMICAO, UA #### [address] [address] CNPN Telephone (PREANME) TERRANCE BRAR ([id number]) 1965 F Date Time Provider Department 09/05/19 CAITY BURDEN (STAPLE LASTER) PREANME During your visit today, we recorded the following information about you: Caity Burden APRN.CNP 09/05/2019 9:53 AM Signed Notifying surgeon's office and PCP, pt's pre-op A1c 14.4. Pt is a IDDM, last A1c 13.0 07/13/2019. Please advise. She is scheduled for LAPAROSCOPIC INCISIONAL RECURRENT HERNIA REPAIR W/ MESH REDUCIBLE ADULT With Dr. Dee 09/11/2019. Caity Burden APRN.CONSIGNEE 09/05/2019 9:59 AM Signed Also noted to be have TSH level of 38.7, calcium 11.4, sodium 130. Coco Nur CMA, MA 09/05/2019 10:20 AM Addendum Patient was discharged from practice due to many no shows. She no longer has a PCP. See phone encounter on 07/05/2019. BESSIE No APRN.CONSIGNEE 09/05/2019 2:46 PM Signed Spoke with pt and reviewed abnormal labs and that pt no longer has a [facility] PCP due to no shows. Encouraged pt to establish with another PCP [facility] to have the labs addressed and medication adjustments. Connie Colon PA-C 09/06/2019 2:26 PM Signed Anam Flanagan (Clam Shovel Operator) [place]; Anitha Domingo LPN; Red Garcia 18 hours ago (7:57 PM) The patient's procedure will need to be postponed until these issues are corrected. Thanks Rich Routing comment Surgery cancelled, see separate telephone encounter initiated 08/10/19 Carlee Franco III MD 09/11/2019 1:24 PM Signed notify patient of fact her diabetes mellitus is totally out of control which disqualifies her from this surgery. Controlling her diabetes mellitus will require fdc commitment on her part to keep appointments, follow medical advice, take her medications as prescribed, and play an active role in the treatment of her disease. If she is willing to do all of these things, I am willing to accept her back as a patient. If she accepts she will need an appointment with Miriam or myself w/i the next month. DEZ Woody MD, CMA, MA 09/11/2019 2:08 PM Signed Detailed message left for patient including to call back and let us know how she would like to proceed. BESSIE No, RN, RN 09/11/2019 2:20 PM Signed Pt returns call, agreeable to Dr. Franco recommendations and would like to come back to is practice. Offered appt with Dr. Franco 09/18/19 at 4:20pm. Unable to schedule pt due to dismissal. Carlee Franco III MD 09/11/2019 4:36 PM Signed Please check with Pam Deleon as to how this appt can occur in [facility] Carlee Franco III MD Allergies As of Date: 09/05/2019 Noted Allergy Reaction CIPROFLOXACIN 10/05/2008 7 - Swelling CODEINE 05/17/2014 4 - Hives 9 - Itching IBUPROFEN 04/08/2007 4 - Hives METFORMIN 06/25/2017 5 - Intolerance Comments: GI UPSET NAPROXYN (NAPROXEN) 04/08/2007 4 - Hives PENICILLINS 04/08/2007 4 - Hives ULTRAM (TRAMADOL HCL) 04/08/2007 Comments: facial/ throat swelling Date Reviewed: 09/04/2019 Reviewed by: Caity Flanagan (Clam Shovel Operator) Bertram - Fully Assessed Reason for Visit: Elevated A1c Pre-op [Other] Cmt: 14.4 Appointment [186] Reason For Visit History Recorded Prescriptions as of 09/05/2019 Sig: ASPIRIN 81 MG CHEWABLE TABLET DAILY@0800 X BLOOD SUGAR DIAGNOSTIC STRIPS use to test blood sugar THREE* X INSULIN GLARGINE (U-100) 100 * Inject 35 Units subcutaneousl* X INSULIN LISPRO (U-100) 100 UN* Inject 10 Units subcutaneousl* X PEN NEEDLE, DIABETIC 32 GAUGE* Use one needle for each dose.* OMEPRAZOLE 20 MG CAPSULE,BERTHA* take 1 capsule daily 30 minut* X LEVOTHYROXINE 125 MCG TABLET TAKE 1 TABLET BY MOUTH EVERY * BLOOD-GLUCOSE METER KIT Free style lite Insulinx RIZATRIPTAN 10 MG TABLET TAKE 1 TABLET BY MOUTH needed* LANCETS Test blood sugar(s) 3 times d* Problem List As Of Date 09/05/2019 Noted Resolved Depressive disorder, not elsewhere classified [*10/05/2008 02/27/2016 More... Diabetes mellitus type 2, uncontrolled, without*10/05/2008 02/27/2016 More... CALCULUS OF KIDNEY [N20.0] 10/05/2008 More... Tobacco Use Disorder [F17.200] 10/10/2008 More... Hyperparathyroidism (HCC) [E21.3] 10/24/2008 More... Disturbance in sleep behavior [G47.9] 12/07/2008 More... 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 Routine General Medical Examination at a [facility]*12/10/2008 06/03/2015 More... Benign neoplasm of colon [D12.6] 05/15/2014 Abdominal pain, epigastric [R10.13] 05/15/2014 06/03/2015 Gastric ulcer [K25.9] 05/15/2014 More... Abdominal pain, right upper quadrant [R10.11] 06/05/2014 06/03/2015 Lumbar degenerative disc disease [M51.36] 03/12/2015 Constipation [K59.00] 03/12/2015 06/03/2015 Anemia [D64.9] 03/12/2015 02/27/2016 Hypothyroidism [E03.9] 03/12/2015 More... Hyperlipidemia associated with type 2 diabetes *03/12/2015 More... Carpal tunnel syndrome, left [G56.02] 05/27/2015 01/27/2017 Carpal tunnel syndrome, right [G56.01] 05/27/2015 01/27/2017 Trigger thumb of left hand [M65.312] 07/23/2015 01/27/2017 Trigger ring finger of right hand [M65.341] 01/28/2016 Diabetes mellitus type 2 with neurological jaciel*03/02/2016 More... De Quervain's tenosynovitis [M65.4] 04/02/2016 Trigger thumb of right hand [M65.311] 04/02/2016 Blood in the urine [R31.9] 01/22/2017 Trigger middle finger of right hand [M65.331] 06/21/2017 Trigger finger, right little finger [M65.351] 06/21/2017 Trigger finger, right [M65.30] 06/22/2017 More... Renal stone [N20.0] 01/07/2018 Injury of kidney [S37.009A] 11/21/2018 Class 1 obesity due to excess calories with bod*09/04/2019 More... Incisional hernia, without obstruction or gangr*09/04/2019 Encounter Status:Closed by COCO NUR CMA on 09/11/19 [place] CNCOon 03-11-2018 CNCO Letter Text [facility] Cardiology [address] [place] [address]Rlsb: [phone] Qdrsioy E. Shafer, [facility] 2017[facility] Hospitalkimberly Brar[address] [place] [address]Dear Nelindakimberly Brar,We missed seeing you for your scheduled appointment with Dr. Calixto on03/08/18 at the [facility] [place].Our goal is to offer the best possible care to our patients, so we areconcerned when you are unable to keep a scheduled appointment.Please call us at [phone] so that we can reschedule your appointment fora day and time that will work for you.If you find it difficult to keep your appointment, please notify our officeat least 24 hours in advance so that we may reschedule your appointment.We are glad [facility] you [facility] your[facility] needs and hope to continue serving you in the future.Sincerely,Angel Calixto MD(Signed electronically to expedite mailing) [facility] Office Visit: UC: yesica Butler OM 07-28-2017 Fall risk assessment No Invalid Interpretation Code [facility] Work Phone: Protein mass conc yes Invalid Interpretation Code [facility] Work Phone: Protein mass conc Done Invalid Interpretation Code [facility] Work Phone: Tobacco smoking status NHIS Current every day smoker Invalid Interpretation Code [facility] Work Phone: Lab Report: Culture, Urineon 02-22-2015 CUUR . Invalid Interpretation Code [facility] Work Phone: Lab Report: (P) Urinalysis, Completeon 02-20-2015 Specific gravity Refractometry Relative Density (U) 1.015 Invalid Interpretation Code 1.002-1.030 [facility] Work Phone: Lab Report: BNP,B-Type NATRI URETIC PEPTIDEon 02-20-2015 Natriuretic peptide B mass conc (Bld) 8.6 pg/mL Invalid Interpretation Code 0-100 [facility] Work Phone: Lab Report: Basic Metabolic Profile (BMP)on 02-20-2015 Anion gap 4 molar conc 9 Invalid Interpretation Code 5-15 [facility] Work Phone: Calcium mass conc 8.3 mg/dL Low 8.5-10.1 [facility] Work Phone: Chloride molar conc 100 mmol/L Invalid Interpretation Code 98-107 [facility] Work Phone: CO2 ppres (BldV) 27.0 mmol/L Invalid Interpretation Code 21.0-32.0 [facility] Work Phone: Creatinine mass conc 1.2 mg/dL High 0.6-1.0 [facility] Work Phone: EST GFR - AA 61 mL/min Invalid Interpretation Code >60 [facility] Work Phone: GFR/1.73 sq M predicted among non-blacks MDRD vol rate/area (S/P/Bld) 50 mL/min/{1.73_m2} Low >60 [facility] Work Phone: Glucose mass conc 170 mg/dL High 70-110 [facility] Work Phone: Potassium molar conc 3.3 mmol/L Low 3.5-5.1 [facility] Work Phone: Sodium molar conc 136 mmol/L Invalid Interpretation Code 136-145 [facility] Work Phone: Urea nitrogen mass conc 10 mg/dL Invalid Interpretation Code 7-18 [facility] Work Phone: Urea nitrogen/Creatinin e mass ratio 8.3 RATIO Low 10-20 [facility] Work Phone: Lab Report: CBC W/Diff, Auto matedon 02-20-2015 Absolute Neut 5.3 X10 3/UL Invalid Interpretation Code 2.0-7.7 [facility] Work Phone: Basophils/100 WBC Auto (Bld) 0.5 % Invalid Interpretation Code 0-1 [facility] Work Phone: Eosinophils/100 WBC Auto (Bld) 1.5 % Invalid Interpretation Code 0-5 [facility] Work Phone: Erythrocyte distribution width Auto Ratio (RBC) 47.5 fL High 35.1-43.9 [facility] Work Phone: Hematocrit Auto Volume Fraction (Bld) 36.1 % Low 37-47 [facility] Work Phone: Hemoglobin mass conc (Bld) 11.5 g/dL Low 12.0-15.0 [facility] Work Phone: Lymphocytes Auto #/vol (Bld) 1.54 X10 3/UL Invalid Interpretation Code 0.83-4.51 [facility] Work Phone: Lymphocytes/100 WBC Auto (Bld) 20.7 % Invalid Interpretation Code 19-41 [facility] Work Phone: MCH Auto Entitic mass (RBC) 29.9 pg Invalid Interpretation Code 27.0-32.0 [facility] Work Phone: MCHC Auto mass conc (RBC) 31.9 G/GL Low 32-36 [facility] Work Phone: MCV Auto Entitic volume (RBC) 93.8 fL Invalid Interpretation Code 81-99 [facility] Work Phone: Monocytes/100 WBC Auto (Bld) 5.5 % Invalid Interpretation Code 0-10 [facility] Work Phone: Neutrophils/100 WBC Auto (Bld) 71.5 % High 47-70 [facility] Work Phone: Platelet mean volume Fercho-Jana Entitic volume (Bld) 9.9 fL Invalid Interpretation Code 6.2-12.0 [facility] Work Phone: Platelets Auto #/vol (Bld) 259 10*3/mm3 Invalid Interpretation Code 150-450 [facility] Work Phone: RBC Auto #/vol (Bld) 3.85 10*6/uL Low 4.2-5.4 [facility] Work Phone: WBC Auto #/vol (Bld) 7.4 10*3/uL Invalid Interpretation Code 4.4-11.0 [facility] Work Phone: Lab Report: Thyroid Stim Hor ivory (TSH)on 02-20-2015 Thyrotropin Qn 79.90 u[iU]/mL High 0.358-3.74 [facility] Work Phone: Lab Report: Troponin-Ion Troponin I.cardiac mass conc ng/mL Invalid Interpretation Code <0.06 [facility] Work Phone: Lab Report: A1Con 08-11-2010 Hemoglobin A1c/Hemoglobin.tot al mass fraction (Bld) 9.6 % High 4.0-6.3 [facility] Work Phone: Lab Report: CMPon 08-11-2010 Albumin mass conc 3.6 g/dL Normal 3.4-5.0 [facility] Work Phone: ALP enzyme act/vol (Bld) 52 U/L Normal 50-136 [facility] Work Phone: ALT enzyme act/vol 31 U/L Normal 12-78 [facility] Work Phone: AST enzyme act/vol 14 U/L Low 15-37 [facility] Work Phone: Bilirubin mass conc 0.60 mg/dL Normal 0.00-1.00 [facility] Work Phone: Lab Report: LIPIDon 08-11-20 10 Cholesterol in HDL mass conc 28 mg/dL Low [facility] Work Phone: Cholesterol in LDL mass conc 106 mg/dL Normal 0-130 [facility] Work Phone: Cholesterol mass conc 189 mg/dL Normal 200 [facility] Work Phone: Lipoprotein.pre-be ta mass conc 55 mg/dL High 5-40 [facility] Work Phone: Triglyceride mass conc 275 mg/dL High [facility] Work Phone: Vital Signs Date Time Vital Sign Value Performing Clinician Laure graf 04-23-2023 14:35-0400 Body temperature 100 [degF] Terrell Degroot MANAGER STRATEGY & ACCOUNT.CONSIGNEE Work Phone: [facility] 04-23-2023 14:35-0400 Body weight 81.1 kg Terrell Zane MANAGER STRATEGY & ACCOUNT.CONSIGNEE Work Phone: [facility] 04-23-2023 14:35-0400 Diastolic blood pressure 82 mm[Hg] Terrell Zane MANAGER STRATEGY & ACCOUNT.CONSIGNEE Work Phone: [facility] 04-23-2023 14:35-0400 Heart rate 94 /min Terrell Degroot MANAGER STRATEGY & ACCOUNT.CONSIGNEE Work Phone: [facility] 04-23-2023 14:35-0400 Respiratory rate 21 /min Terrell Degroot MANAGER STRATEGY & ACCOUNT.CONSIGNEE Work Phone: [facility] 04-23-2023 14:35-0400 SaO2% (BldA) [Mass fraction] 99 % Terrell Degroot MANAGER STRATEGY & ACCOUNT.CONSIGNEE Work Phone: [facility] 04-23-2023 14:35-0400 Systolic blood pressure 130 mm[Hg] Terrell Degroot MANAGER STRATEGY & ACCOUNT.CONSIGNEE Work Phone: [facility] 04-07-2023 13:09-0400 Body height 152.4 cm Dwayne Lopez MD Work Phone: [facility] 04-07-2023 13:09-0400 Body weight 81.65 kg Dwayne Lopez MD Work Phone: [facility] 04-07-2023 13:09-0400 Diastolic blood pressure 74 mm[Hg] Dwayne Lopez MD Work Phone: [facility] 04-07-2023 13:09-0400 Heart rate 80 /min Dwayne Lopez MD Work Phone: [facility] 06-14-2023 13:09-0400 Respiratory rate 16 /min Dwayne Lopez MD Work Phone: [facility] 04-07-2023 13:09-0400 Systolic blood pressure 112 mm[Hg] Dwayne Lopez MD Work Phone: [facility] 03-24-2023 10:18-0400 Body weight 83.92 kg Dwayne Lopez MD Work Phone: [facility] 03-24-2023 10:18-0400 Diastolic blood pressure 64 mm[Hg] Dwayne Lopez MD Work Phone: [facility] 03-24-2023 10:18-0400 Heart rate 84 /min Dwayne Lopez MD Work Phone: [facility] 03-24-2023 10:18-0400 Respiratory rate 16 /min Dwayne Lopez MD Work Phone: [facility] 03-24-2023 10:18-0400 Systolic blood pressure 110 mm[Hg] Dwayne Lopez MD Work Phone: [facility] 07-28-2017 17:13-0400 BMI (Body Mass Index) 32.38 kg/m2 Angelika De La Torre LPN [facility] Work Phone: 07-28-2017 17:13-0400 Body Temperature 98.3 [degF] Angelika De La Torre LPN [facility] Work Phone: 07-28-2017 17:13-0400 BP Diastolic 76 mm[Hg] Angelika De La Torre LPN [facility] Work Phone: 07-28-2017 17:13-0400 BP Systolic 124 mm[Hg] Angelika De La Torre LPN [facility] Work Phone: 07-28-2017 17:13-0400 Height 152.4 cm Angelika De La Torre LPN [facility] Work Phone: 07-28-2017 17:13-0400 Pulse (Heart Rate) 72 /min Angelika De La Torre LPN [facility] Work Phone: 07-28-2017 17:13-0400 Respiratory Rate 15 /min [facility] Work Phone: 07-28-2017 17:130400 Weight 75.21 kg Angelika De La Torre LPN [facility] Work Phone: 02-04-2012 [id number] BSA (Body Surface Area) 1.75 m2 Angelika De La Torre LPN [facility] Work Phone: Encounters Encounter Date Encounter Type Care Provider Facility Start: 04-06-2024 ambulatory Jeffrey Peacock RN Work Phone: [employer] Comment on above: ACM TIARA RN Start: 03-28-2024 ambulatory Jeffrey Peacock RN Work Phone: [employer] Start: 03-21-2024 Refill Dwayne Lopez MD Work Phone: [facility] Comment on above: Refill Request Start: 03-08-2024 ambulatory Dwayne Lopez MD Work Phone: Internal Medicine [facility] [place] Start: 02-17-2024 ambulatory Nash Agrawal [facility] Start: 02-17-2024 Patient encounter procedure Nash Agrawal MA [facility] Comment on above: Population Health Na vigation Outreach ([facility] SARITA 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 - AWV, Care gaps, HCC gap closure - [place] [facility]) Start: 02-10-2024 ambulatory Dwayne Lopez MD Work Phone: [facility] Comment on above: Allied Health Visit (Medication Adherence Outreach ) Start: 01-24-2024 Telephone encounter Jarred Lopez MD Work Phone: [facility] [place] Comment on above: Appointment Start: 01-06-2024 ambulatory Rachel Perea LPN [facility] [place] Start: 01-06-2024 Telephone encounter Jarred Lopez MD Work Phone: [facility] [place] Comment on above: Appointment (Hospita l follow up (40 min as patient hasn't followed up as advised either LEA March 2023)) Transition Of Care Start: 09-20-2023 ambulatory Dwayne Lopez MD Work Phone: [employer] Comment on above: Allied Health Visit (Medication Adherence Outreach ) Start: 08-20-2023 ambulatory Dwayne Lopez MD Work Phone: [employer] Comment on above: Allied Health Visit (Medication Adherence Outreach ) Start: 08-18-2023 ambulatory Irena Tompkins P[facility] Comment on above: Population Health Na vigation Outreach ([place] care gaps ) Refill Request Start: 08-10-2023 End: 08-10-2023 ambulatory DWAYNE LOPEZ Facility:[facility] Start: 06-10-2023 ambulatory Dwayne Lopez MD Work Phone: [facility] [place] Comment on above: Constipation Start: 06-07-2023 Telephone encounter Jarred Lpoez MD Work Phone: Family [facility] [place] Comment on above: Appointment (ER foll ow up visit) Start: 05-20-2023 ambulatory Dwayne Lopez MD Work Phone: [employer] Comment on above: Allied Health Visit (Medication Adherence Outreach/) Refill Request Start: 05-04-2023 ambulatory Dwayne Lopez MD Work Phone: [employer] Start: 04-23-2023 End: 04-23-2023 ambulatory DWAYNE LOPEZ Facility:[facility] Start: 04-23-2023 End: 04-23-2023 Patient encounter procedure Terrell Degroot APRN.CNP Work Phone: [facility] Comment on above: Toothache (Primary D x) Start: 04-08-2023 ambulatory Pcp (Historical) [facility] [place] Start: 04-07-2023 Telephone encounter Jarred Lopez MD Work Phone: [facility] [place] Comment on above: Appointment Start: 04-07-2023 End: 04-07-2023 Patient encounter procedure Dwayne Lopez MD Work Phone: [facility] [place] Comment on above: Generalized weakness (Primary Dx); Acute constipation; Diabetes mellitus type 2 with neurological manifestations (HCC); Diabetic polyneuropathy associated with type 2 diabetes mellitus (HCC); Hyperlipidemia associated with type 2 diabetes mellitus (HCC); Change in vision; Globus sensation; Onychomycosis; Acquired hypothyroidism; Screening for colon cancer; Encounter for immunization; Stage 3a chronic kidney disease (HCC); Hyperparathyroidism (HCC); Opioid dependence, continuous ([facility]) Start: 03-24-2023 End: 03-24-2023 Patient encounter procedure Dwayne Lopez MD Work Phone: [facility] [place] Comment on above: Globus sensation (Pr imary Dx); Gastroesophageal reflux disease, unspecified whether esophagitis present Start: 02-23-2023 ambulatory No Pcp [facility] Comment on above: Allied Health Visit (Medication Adherence Outreach ) Start: 01-01-2023 ambulatory Donnell Burr [facility] Work Phone: [facility] [employer] Comment on above: Medication Update (S tatin use review ) Start: 04-03-2022 ambulatory Shital Patel MA [facility] Comment on above: Population Health Na vigation Outreach ([facility]) Start: 09-29-2018 Patient encounter procedure Tj L Calixto Facility:[facility] Start: 08-03-2018 Patient encounter procedure Tj L Calixto Facility:[facility] Start: 06-01-2018 Patient encounter procedure Tj L Calxito Facility:[facility] Start: 03-08-2018 Ambulatory SIXTO CALIXTO Facility :[facility] Start: 02-22-2018 Patient encounter procedure Tj L Calixto Facility:[facility] Start: 11-30-2017 Patient encounter procedure Tj L Calixto Facility:[facility] Start: 12-10-2008 End: 06-03-2015 Patient encounter status Nash Agrawal MA [place] Work Phone: Procedures Date Procedure Procedure Detail Performing Clinician [...] Author Start: 06-09-2031 Urine microalbumin profile [facility] Start: 06-25-2024 Influenza vaccination Influenza Vaccine (Season Ended) [facility] Start: 04-18-2024 End: 04-18-2024 Patient encounter procedure 04/18/2024 12:20 PM EDT Office Visit Family Meggan Holder [address] [place] [address] 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 APRN.CONSIGNEE [address] [place] [id number] Yearly Exam Family Meggan Holder Comment on above: Yearly Exam Start: 04-07-2024 3 comp foot exam completed DIABETIC FOOT EXAM [facility] Start: 04-07-2024 ANNUAL PCP TEAM CHRONIC DISEASE VISIT ANNUAL PCP TEAM CHRONIC DISEASE VISIT [facility] Start: 04-07-2024 COVID-19 VACCINE (4 - Booster for Pfizer series) COVID-19 VACCINE (4 - Booster for Pfizer series) [facility] Comment on above: Postponed from 07/28/2022 (Declined at t his time) Start: 04-07-2024 COVID-19 VACCINE (4 - Pfizer series) COVID-19 VACCINE (4 - Pfizer series) [facility] Comment on above: Postponed from 07/28/2022 (Declined at t his time) Start: 04-07-2024 Diabetic foot examination Diabetic Foot Exam [facility] Start: 04-07-2024 SHINGRIX VACCINE (1 of 2) SHINGRIX VACCINE (1 of 2) [facility] Comment on above: Postponed from 2013 (Declined at t his time) Start: 03-30-2024 End: 03-30-2024 Patient encounter procedure 03/30/2024 12:40 PM EDT Office Visit [facility] [address] [place] [phone] Dwayne Lopez MD [address] [place] [id number] ER follow up; [facility] 03/24/2024 head injury-PCP has ER summary on desk [facility] [place] Comment on above: ER follow up; [facility] 03/24/2024 head injury- PCP has ER summary on desk Start: 03-24-2024 ANNUAL PCP TEAM CHRONIC DISEASE VISIT ANNUAL PCP TEAM CHRONIC DISEASE VISIT [facility] Start: 10-25-2023 Behavioral Health Screening Behavioral Health Screening [facility] Start: 10-25-2023 Depression Assessment Depression Assessment [facility] Start: 2023 Hepatitis B Vaccine (1 of 3 - Risk 3-dose series) Hepatitis B Vaccine (1 of 3 - Risk 3-dose series) [facility] Start: 2023 RSV Vaccine (1 - 1-dose 60+ series) RSV Vaccine (1 - 1-dose 60+ series) [facility] Start: 06-25-2023 Covid-19 Vaccine ( season) Covid-19 Vaccine ( season) [facility] Start: 06-25-2023 Influenza vaccination [facility] Start: 04-07-2023 End: 06-07-2023 ALBUMIN/CREAT RATIO RND UR ALBUMIN/CREAT RATIO RND UR Lab Routine Diabetes mellitus type 2 with neurological manifestations (HCC) Expected: 04/07/2023, Expires: 06/07/2023 [facility] Work Phone: Comment on above: Expected: 04/07/2023, Expires: 3 Start: 04-07-2023 End: 06-07-2023 CBC W Auto Differential panel - Blood CBC + DIFF Lab Routine Diabetes mellitus type 2 with neurological manifestations (HCC) Expected: 04/07/2023, Expires: 06/07/2023 [facility] Work Phone: Comment on above: Expected: 04/07/2023, Expires: Start: 04-07-2023 End: 06-07-2023 Comprehensive metabolic 2000 panel - Serum or Plasma COMP METABOLIC PANEL Lab Routine Diabetes mellitus type 2 with neurological manifestations (HCC) Expected: 04/07/2023, Expires: 06/07/2023 [facility] Work Phone: Comment on above: Expected: 04/07/2023, Expires: 3 Start: 04-07-2023 End: 06-07-2023 Hemoglobin A1c in Blood HGB A1C Lab Routine Diabetes mellitus type 2 with neurological manifestations (HCC) Expected: 04/07/2023, Expires: 06/07/2023 [facility] Work Phone: Comment on above: Expected: 04/07/2023, Expires: 3 Start: 04-07-2023 End: 06-07-2023 Hepatic function 2000 panel - Serum or Plasma HEPATIC FUNCTION PNL Lab Routine Onychomycosis Expected: 04/07/2023, Expires: 06/07/2023 [facility] Work Phone: Comment on above: Expected: 04/07/2023, Expires: 3 Start: 04-07-2023 End: 06-07-2023 LIPID PANEL, NONFASTING LIPID PANEL, NONFASTING Lab Routine Diabetes mellitus type 2 with neurological manifestations (HCC) Expected: 04/07/2023, Expires: 06/07/2023 [facility] Work Phone: Comment on above: Expected: 04/07/2023, Expires: 3 Start: 04-07-2023 End: 06-07-2023 Thyrotropin [Units/volume] in Serum or Plasma TSH BLD Lab Routine Acquired hypothyroidism Expected: 04/07/2023, Expires: 06/07/2023 [facility] Work Phone: Comment on above: Expected: 04/07/2023, Expires: 3 Start: 10-25-2022 DEPRESSION ASSESSMENT DEPRESSION ASSESSMENT [facility] Start: 07-28-2022 COVID-19 VACCINE (4 - Booster for Pfizer series) COVID-19 VACCINE (4 - Booster for Pfizer series) [facility] Start: 06-25-2022 Influenza vaccination [facility] Start: 07-21-2021 COVID-19 VACCINE (3 - Booster for Pfizer series) COVID-19 VACCINE (3 - Booster for Pfizer series) [facility] Start: 04-15-2021 COVID-19 VACCINE (3 - Booster for Pfizer series) COVID-19 VACCINE (3 - Booster for Pfizer series) [facility] Start: 03-25-2021 Glaucoma screening Dilated Retinal Exam [facility] Start: 03-25-2021 Hepatitis C antibody, confirmatory test DILATED RETINAL EXAM [facility] Start: 01-24-2021 ANNUAL PCP TEAM CHRONIC DISEASE VISIT ANNUAL PCP TEAM CHRONIC DISEASE VISIT [facility] Start: 12-25-2020 Hepatitis B screening URINE ALBUMIN:CREATININE RATIO [facility] Start: 10-27-2020 COLORECTAL CANCER SCREENING COLORECTAL CANCER SCREENING [facility] Start: 10-27-2020 FECAL OCCULT BLOOD FECAL OCCULT BLOOD [facility] Start: 10-27-2020 Screening for malignant neoplasm of colon [facility] Start: 10-26-2020 Creatinine measurement Serum Creatinine [facility] Start: 10-26-2020 SERUM CREATININE SERUM CREATININE [facility] Start: 09-18-2020 Hepatitis B surface antibody level LDL CHOLESTEROL [facility] Start: 02-22-2020 Hemoglobin A1c measurement HbA1C [facility] Start: 02-22-2020 Hemoglobin A1c/Hemoglobin.total in Blood HBA1C [facility] Start: 07-04-2019 PNEUMOCOCCAL (2 - PCV) PNEUMOCOCCAL (2 - PCV) [facility] Start: 06-21-2018 3 comp foot exam completed DIABETIC FOOT EXAM [facility] Start: 06-21-2018 Adult depression screening assessment DEPRESSION SCREENING [facility] Start: 01-22-2018 Mammography [facility] Start: 01-22-2018 Screening for malignant neoplasm of breast Mammogram Screening [facility] Start: 07-28-2017 End: 07-28-2017 Appointment Appointment [facility] Work Phone: Start: 2013 SHINGRIX VACCINE (1 of 2) SHINGRIX VACCINE (1 of 2) [facility] Start: 08-14-2010 End: 08-14-2010 Follow Up Appt 1 month Follow Up Appt 1 month [facility] Work Phone: Start: 08-14-2010 End: 08-14-2010 Iiv3 vaccine split virus 0.5 ml dosage im use Flu vaccine > age 3 yr (with preservative) [facility] Work Phone: Start: 03-10-2010 End: 08-11-2010 Blood count complete automated *CBC without Diff [facility] Work Phone: Start: 03-10-2010 End: 08-11-2010 Comprehensive metabolic panel *CMP Complete Metabolic Panel [facility] Work Phone: Start: 03-10-2010 End: 03-10-2010 Follow Up Appt 2 weeks Follow Up Appt 2 weeks [facility] Work Phone: Start: 03-10-2010 End: 11-19-2014 Gastroenterology Referral Gastroenterology Referral Kristopher Santana, [address] [place] [address], [address], [place], [address] [facility] Work Phone: Start: 03-10-2010 End: 08-11-2010 Hemoglobin A1c/Hemoglobin.total mass fraction (Bld) *HgA1C [facility] Work Phone: Start: 03-10-2010 End: 08-11-2010 Protein mass conc *Lipid Profile [facility] Work Phone: Start: 03-10-2010 End: 08-11-2010 Thyrotropin Qn *TSH [facility] Work Phone: Start: 03-10-2010 End: 08-11-2010 Urinls dip stick/tablet reagnt non-auto micrscpy *Urinalysis [facility] Work Phone: Start: 2008 COLOGUARD (FIT-DNA) COLOGUARD (FIT-DNA) [facility] Start: 2008 Colonoscopy COLONOSCOPY [facility] Start: [address] COLONOGRAPHY [facility] Start: 2008 Screening for malignant neoplasm of colon [facility] Start: 2008 SIGMOIDOSCOPY SIGMOIDOSCOPY [facility] Start: 1982 HEPATITIS B (1 of 3 - Risk 3-dose series) HEPATITIS B (1 of 3 - Risk 3-dose series) [facility] End: 04-07-2025 MG Breast Screening [facility] SCREENING Radiology Routine Encounter for screening mammogram for breast cancer 1 Occurrences starting 03/08/2024 until 04/07/2025 [facility] Work Phone: Comment on above: 1 Occurrences starting 03/08/2024 until 04/07/2025 Patient Education UPPER%20RESPIR ATORY%20INF ECTION [facility] Work Phone: [facility] Immunizations Immunization Date Immunization Notes Care Provider Kimani qureshi 04-07-2023 pneumococcal (PCV20) vaccine, 20 valent (PREVNAR 20) Dwayne Lopez MD Work Phone: [facility] 04-07-2023 pneumococcal Conjuga te, unspecified formulation Dwayne Lopez MD Work Phone: [facility] Work Phone: 06-09-2021 tetanus toxoid, redu juan c diphtheria toxoid, and acellular pertussis vaccine, adsorbed Shital Patel MA [facility] 09-18-2019 influenza, injectabl e, quadrivalent, contains preservative Shital Patel MA [facility] 09-18-2019 influenza virus vaccine, unspecified formulation Irena REYES [facility] 08-17-2019 influenza, injectabl e, quadrivalent, preservative free Shital Patel [facility] 07-04-2018 influenza, injectabl e, quadrivalent, preservative free Shital Patel [facility] 07-04-2018 pneumococcal polysaccharide vaccine, 23 valent Shital Patel MA [facility] 09-07-2013 influenza, seasonal, injectable, preservative free Shital Patel [facility] 11-23-2012 pneumococcal polysaccharide vaccine, 23 valent Shital Patel [facility] 08-14-2010 influenza, seasonal, injectable Angelika De La Torre LPN [facility] Work Phone: 03-10-2010 influenza, seasonal, injectable; Translations: [Follow Up Appt 2 weeks] Angelika De La Torre LPN [facility] Work Phone: 09-11-2009 novel [id number], preservative-free, injectable Shital Patel [facility] 10-10-2008 pneumococcal polysaccharide vaccine, 23 valent Shital Patel [facility] 08-25-2008 influenza virus vaccine, unspecified formulation Shital Patel [facility] Work Phone: 04-24-2006 tetanus and diphther ia toxoids, adsorbed, preservative free, for adult use (2 Lf of tetanus toxoid and 2 Lf of diphtheria toxoid) Shital Patel [facility] Work Phone: Payers Date Payer Category [facility] [employer] [facility] [id number] 2022-Present [phone] [address] [place] [address] [facility] [id number] 2022 Unknown [id number] 2022 Unknown [id number] 2014 Medicaid [id number] Unknown [id number] Unknown [id number] Unknown [id number] Unknown [id number] Unknown [id number] Social History Date Type Detail Facility Start: 10-21-2020 End: 03-24-2023 Tobacco smoking status NHIS Ex-smoker [facility] Start: 06-25-1977 End: 10-07-2020 History of tobacco use Current smoker [facility] Start: 06-25-1977 End: 10-07-2020 History of tobacco use Cigarette Smoker [facility] Start: 10-21-2020 End: 11-19-2022 Cigarettes smoked current (pack per day) - Reported 0.5 [facility] Start: 10-21-2020 End: 03-24-2023 Tobacco use and exposure Smokeless tobacco non-user [facility] Start: 10-31-2021 End: 08-10-2023 Alcohol intake Current non-drinker of alcohol (finding) [facility] Start: 05-27-2015 History SDOH Alcohol Comment Seldom- twice yearly [facility] Start: 1965 Sex Assigned At Not on file [facility] Start: 11-19-2022 End: 04-23-2023 Tobacco use panel [facility] National Score (1-10 0), lower number is lower risk 70 [facility] Medical Equipment Procedure Code Equipment Code Equipment Origin al Text Equipment Identifier Dates TEST STRIPS TEST STRIPS [id number] Start: 08-14-2010 LANCET LANCET [id number] Start: 08-14-2010 INSULIN PEN NEEDLE [id number] Start: 08-14-2010 Comment on above: Test blood sugar(s) 3 times daily. Dx: O ther DM Code E11.49 Insulin: Yes. Pt uses Freestyle Lite Insulinx Meter use to test blood tobin gar THREE TIMES DAILY Use one needle for e ach dose. four/day. Test blood sugar(s) 3 times daily. Dx: Type 2 DM - Uncontrolled E11.65 Insulin: Yes Test blood sugar(s) 3 times daily. Dx: Other DM Code E11.49 Insulin: Yes. Pt uses Freestyle Lite Insulinx Meter [id number] Start: 12-26-2019 use to test bloo d sugar THREE TIMES DAILY [id number] Start: 12-26-2019 Use one needle f or each dose. four/day. [id number] Start: 09-18-2019 Test blood sugar(s) 3 times daily. Dx: Type 2 DM - Uncontrolled E11.65 Insulin: Yes [id number] Start: 05-07-2016 Goals Date Patient Goal Desired Activity /State Personal health goal Clinical Notes 07-23-2015 to 04-06-2024 Jeffrey Peacock RN - 04/06/2024 10:55 AM Jeffrey Shields RN - 03/28/2024 2:17 PM Jeffrey Shields RN - 03/28/2024 11:48 AM EDTTelephone Encounter - Shonda Valladares LPN - 03/22/2024 2:08 PM EDT Note Date & Type Note Facility 04-06-2024 Note HNO ID: [id number] Author: JEFFREY PEACOCK RN Service: ? Author Type: Registered Nurse Type: Progress Notes Filed: 04/06/2024 11:05 Note Text: ED Follow-Up Note Provider Action / FYI: Outreach was completed via telephone regarding the patient?s recent OON ED visit. Member denies any concerning symptoms or current medical or social needs. The patient was encouraged to contact their primary care provider (PCP) to schedule a follow up appointment and ask any questions related to their ongoing care within 7 days of the ED visit. Pt currently resides @ [facility] and follows a provider @ the facility Placed pt on attrib list for Vinh Patient seen in ED: Out of Network ED Contact made with Patient: Yes The patient was identified by Name and Date of . Discussed Care with: patient Patient was seen in the Emergency Department (ED) Location: [place] Date: 04/02/24 Reason for ED Visit: CP and blood sugar 44 ED Intervention: cardiac enzymes,EKG per pt Currently experiencing nausea and vomiting but STAPLE LASTER in to see pt today regarding current symptoms Based on command and control officer, the following disposition is advised: No symptoms or symptoms present, not severe. Routed to: No Action Needed JUAN Education Provided this Outreach: No Jeffrey Peacock RN April 06, 2024 11:01 AM [facility] 04-06-2024 History of Present illness Narrative ED Follow-Up Note Provider Action / FYI: Outreach was completed via telephone regarding the patient s recent OON ED visit. Member denies any concerning symptoms or current medical or social needs. The patient was encouraged to contact their primary care provider (PCP) to schedule a follow up appointment and ask any questions related to their ongoing care within 7 days of the ED visit. Pt currently resides @ [facility] and follows a provider @ the facility Placed pt on attrib list for Vinh Patient seen in ED: Out of Network ED Contact made with Patient: Yes The patient was identified by Name and Date of . Discussed Care with: patient Patient was seen in the Emergency Department (ED) Location: [place] Date: 04/02/24 Reason for ED Visit: CP and blood sugar 44 ED Intervention: cardiac enzymes,EKG per pt Currently experiencing nausea and vomiting but STAPLE LASTER in to see pt today regarding current symptoms Based on command and control officer, the following disposition is advised: No symptoms or symptoms present, not severe. Routed to: No Action Needed JUAN Education Provided this Outreach: No Jeffrey Peacock RN April 06, 2024 11:01 AM documented in this encounter [facility] 04-06-2024 Note Patient Outreach (AM BC) TERRANCE BRAR ([id number]) 1965 F Date Time Provider Department 04/06/24 JEFFREY PEACOCK During your visit today, we recorded the following information about you: Jeffrey Peacock RN 04/06/2024 11:05 AM Signed ED Follow-Up Note Provider Action / FYI: Outreach was completed via telephone regarding the patient?s recent OON ED visit. Member denies any concerning symptoms or current medical or social needs. The patient was encouraged to contact their primary care provider (PCP) to schedule a follow up appointment and ask any questions related to their ongoing care within 7 days of the ED visit. Pt currently resides @ [facility] and follows a provider @ the facility Placed pt on attrib list for Vinh Patient seen in ED: Out of Network ED Contact made with Patient: Yes The patient was identified by Name and Date of . Discussed Care with: patient Patient was seen in the Emergency Department (ED) Location: [place] Date: 04/02/24 Reason for ED Visit: CP and blood sugar 44 ED Intervention: cardiac enzymes,EKG per pt Currently experiencing nausea and vomiting but STAPLE LASTER in to see pt today regarding current symptoms Based on command and control officer, the following disposition is advised: No symptoms or symptoms present, not severe. Routed to: No Action Needed JUAN Education Provided this Outreach: No Jeffrey Peacock RN April 06, 2024 11:01 AM Allergies As of Date: 04/06/2024 Noted Allergy Reaction CELEBREX (CELECOXIB) 12/26/2019 2 [...] LPN - Fully Assessed Reason for Visit: ACM TIARA RN [[id number]] Prescriptions as of 04/06/2024 - dulaglutide (TRULICITY) 3 mg/0.5 mL pen [...] sugar THREE TIMES DAILY - Insulin [place], Disposable, (BD ULTRA-FINE BEN PEN NEEDLE) 32 gauge x 5/32 ndle Use one needle for each dose. four/day. - aspirin 81 mg chewable tablet DAILY@0800 - Lancets lancets Test blood sugar(s) 3 times daily. 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 [facility] 03-28-2024 Note HNO ID: [id number] Author: JEFFREY PEACOCK RN Service: ? Author Type: Registered Nurse Type: Progress Notes Filed: 03/28/2024 14:20 Note Text: ED Follow-Up Note Provider Action / FYI: 2nd er outreach call to pt but unable to reach Outreach was attempted with this patient via telephone regarding the patient's recent OON ED visit. Patient did not answer at time of call. A voicemail message was left. Will re-attempt call. Patient seen in ED: Out of Network ED ER vs to [place] on 03/24/24 Contact made with Patient: No, left message. Jeffrey Peacock RN March 28, 2024 2:20 PM [facility] 03-28-2024 History of Present illness Narrative ED Follow-Up Note Provider Action / FYI: 2nd er outreach call to pt but unable to reach Outreach was attempted with this patient via telephone regarding the patient's recent OON ED visit. Patient did not answer at time of call. A voicemail message was left. Will re-attempt call. Patient seen in ED: Out of Network ED ER vs to [place] on 03/24/24 Contact made with Patient: No, left message. Jeffrey Peacock RN March 28, 2024 2:20 PM ED Follow-Up Note Provider Action / FYI: Outreach was attempted with this patient via telephone regarding the patient's recent OON ED visit. Patient did not answer at time of call. A voicemail message was left. Will re-attempt call. Patient seen in ED: Out of Network ED ER vs to [place] on 03/24/24 Contact made with Patient: No, left message. Jeffrey Peacock RN March 28, 2024 11:51 AM documented in this encounter [facility] 03-28-2024 Note HNO ID: [id number] Author: JEFFREY PEACOCK RN Service: ? Author Type: Registered Nurse Type: Progress Notes Filed: 03/28/2024 14:20 Note Text: ED Follow-Up Note Provider Action / FYI: Outreach was attempted with this patient via telephone regarding the patient's recent OON ED visit. Patient did not answer at time of call. A voicemail message was left. Will re-attempt call. Patient seen in ED: Out of [facility] ED ER vs to [place] on 03/24/24 Contact made with Patient: No, left message. Jeffrey Peacock RN March 28, 2024 11:51 AM [facility] 03-28-2024 Note Patient Outreach (AM [facility]) TERRANCE BRAR ([id number]) 1965 F Date Time Provider Department 03/28/24 JEFFREY PEACOCK During your visit today, we recorded the following information about you: Jeffrey Peacock RN 03/28/2024 2:20 PM Signed ED Follow-Up Note Provider Action / FYI: Outreach was attempted with this patient via telephone regarding the patient's recent O[facility] ED visit. Patient did not answer at time of call. A voicemail message was left. Will re-attempt call. Patient seen in ED: Out of Network ED ER vs to [place] on 03/24/24 Contact made with Patient: No, left message. Jeffrey Peacock RN March 28, 2024 11:51 AM Jeffrey Peacock RN 03/28/2024 2:20 PM Signed ED Follow-Up Note Provider Action / FYI: 2nd er outreach call to pt but unable to reach Outreach was attempted with this patient via telephone regarding the patient's recent [facility] ED visit. Patient did not answer at time of call. A voicemail message was left. Will re-attempt call. Patient seen in ED: Out of Network ED ER vs to [place] on 03/24/24 Contact made with Patient: No, left message. Jeffrey Peacock RN March 28, 2024 2:20 PM Allergies As of Date: 03/28/2024 Noted Allergy Reaction CELEBREX (CELECOXIB) 12/26/2019 2 [...] LPN - Fully Assessed Reason for Visit: Prescriptions as of 03/28/2024 - dulaglutide (TRULICITY) 3 mg/0.5 mL pen [...] sugar THREE TIMES DAILY - Insulin [place], Disposable, (BD ULTRA-FINE BEN PEN NEEDLE) 32 gauge x 5/32 ndle Use one needle for each dose. four/day. - aspirin 81 mg chewable tablet DAILY@0800 - Lancets lancets Test blood sugar(s) 3 times daily. Dx: Type 2 DM - Uncontrolled E11.65 Insulin: Yes Problem List As Of Date 03/28/2024 Noted Resolved Depressive disorder, not elsewhere classified [*10/05/2008 02/27/2016 Diabetes mellitus type 2, uncontrolled, without*10/05/2008 02/27/2016 CALCULUS OF KIDNEY [N20.0] 10/05/2008 Tobacco Use Disorder [F17.200] 10/10/2008 Hyperparathyroidism (HCC) [E21.3] 10/24/2008 Disturbance in sleep behavior [G47.9] 12/07/2008 NONTOX UNINODULAR GOITER [E04.1] 12/07/2008 Routine General Medical Examination at [facility]*12/10/2008 06/03/2015 Benign neoplasm of colon [D12.6] 05/15/2014 [...] with neurological jaciel*03/02/2016 De Quervain's tenosynovitis [M65.4] more content not included)... [facility] 03-22-2024 Telephone encounter Note Patient scheduled for 04/18/2024 at 1220 with Jesica Podlogar. Shonda Valladares LPN [facility] 03-22-2024 Miscellaneous Notes Patient scheduled for 04/18/2024 at 1220 with Jesica Podlogar. Shonda Valladares LPN Patient overdue for OV. Please call to schedule appointment in the next 1 month. . Patient reviewed for Population Health Medication Adherence Pended the following prescription(s) for review. Requested Prescriptions Pending Prescriptions Disp Refills atorvastatin (LIPITOR) 40 mg tablet 90 tablet 3 Sig: Take 1 tablet by mouth once daily. No future appointments. Please review and refill if appropriate. Thank you. Syeda Markham March 21, 2024 5:24 PM documented in this encounter [facility] 03-21-2024 Telephone encounter Note Patient overdue for OV. Please call to schedule appointment in the next 1 month. . [facility] 03-21-2024 Telephone encounter Note Patient reviewed for Population Health Medication Adherence Pended the following prescription(s) for review. Requested Prescriptions Pending Prescriptions Disp Refills atorvastatin (LIPITOR) 40 mg tablet 90 tablet 3 Sig: Take 1 tablet by mouth once daily. No future appointments. Please review and refill if appropriate. Thank you. Syeda Markham March 21, 2024 5:24 PM [facility] 03-08-2024 Note Patient Outreach (IN TMMN) TERRANCE BRAR ([id number]) 1965 F Date Time Provider Department 03/08/24 DWAYNE LOPEZ INTBENOIT During your visit today, we recorded the following information about you: Allergies As of Date: 03/08/2024 Noted Allergy Reaction CELEBREX (CELECOXIB) 12/26/2019 2 [...] by: Edda Larios LPN - Fully Assessed Visit Diagnosis:Encounter for screening mammogram for breast cancer [Z12.31] Order(s):[facility] SCREENING [[id number]] Order #: [id number] FUTURE Prescriptions as of 03/13/2024 - dulaglutide (TRULICITY) 3 mg/0.5 mL pen [...] sugar THREE TIMES DAILY - Insulin [place], Disposable, (BD ULTRA-FINE BEN PEN NEEDLE) 32 gauge x 5/32 ndle Use one needle for each dose. four/day. - aspirin 81 mg chewable tablet DAILY@0800 - Lancets lancets Test blood sugar(s) 3 times daily. Dx: Type 2 DM - Uncontrolled E11.65 Insulin: Yes Problem List As Of Date 03/08/2024 Noted Resolved Depressive disorder, not elsewhere classified [*10/05/2008 02/27/2016 Diabetes mellitus type 2, uncontrolled, without*10/05/2008 02/27/2016 CALCULUS OF KIDNEY [N20.0] 10/05/2008 Tobacco Use Disorder [F17.200] 10/10/2008 Hyperparathyroidism (HCC) [E21.3] 10/24/2008 Disturbance in sleep behavior [G47.9] 12/07/2008 NONTOX UNINODULAR GOITER [E04.1] 12/07/2008 Routine General Medical Examination at [facility]*12/10/2008 06/03/2015 Benign neoplasm of colon [D12.6] 05/15/2014 [...] [N63.10] 12/26/2019 Vitamin D deficiency [E55.9] 12/26/2019 Onychomycosis [B35.1] 04/07/2023 Stage 3a chronic kidney disease (HCC) [N18.31] 04/12/2023 Opioid dependence, continuous (HCC) [F11.2 (more content not included)... [facility] 02-17-2024 Note HNO ID: [id number] Author: NASH ARGAWAL MA Service: ? Author Type: Cosmetic Sales Advisor Type: Progress Notes Filed: 02/17/2024 10:58 Note Text: POPULATION HEALTH NAVIGATION OUTREACH Action/FYI Patient is on [facility] 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 Workbench list for below and needs appointment to address: Mammogram Screening HbA1C LDL Cholesterol Serum Creatinine Colorectal Cancer Screening Dilated Retinal Exam Covid-19 Vaccine( season) RSV Vaccine(1 - 1-dose 60+ series) Behavioral Health Screening Hemoglobin A1C (%) Date Value 11/23/2019 14.4 Patient due for: Medicare Annual Wellness Visit Breast Cancer Screening Diabetic Eye Exam HBA1C Pharmacy consult Left message for patient to call back. No mychart available. Reason for Outreach Care Gap/HCC or Scheduling Wellness Visits Care Gaps due: Medicare Annual Wellness Visit Breast Cancer Screening Diabetic Eye Exam HBA1C Specialty Scheduling Patient Contacted: Unable or unnecessary to reach patient: Left message HCC related Navigation Signature: Nash Agrawal MA February 17, 2024 7:07 AM [facility] 02-17-2024 History of Present illness Narrative POPULATION HEALTH NAVIGATION OUTREACH Action/ Patient is on [facility] 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 Workbench list for below and needs appointment to address: Mammogram Screening HbA1C LDL Cholesterol Serum Creatinine Colorectal Cancer Screening Dilated Retinal Exam Covid-19 Vaccine( season) RSV Vaccine(1 - 1-dose 60+ series) Behavioral Health Screening Hemoglobin A1C (%) Date Value 11/23/2019 14.4 Patient due for: Medicare Annual Wellness Visit Breast Cancer Screening Diabetic Eye Exam HBA1C Pharmacy consult Left message for patient to call back. No mychart available. Reason for Outreach Care Gap/HCC or Scheduling Wellness Visits Care Gaps due: Medicare Annual Wellness Visit Breast Cancer Screening Diabetic Eye Exam HBA1C Specialty Scheduling Patient Contacted: Unable or unnecessary to reach patient: Left message HCC related Navigation Signature: Nash Agrawal MA February 17, 2024 7:07 AM documented in this encounter [facility] 02-17-2024 Note Patient Outreach (NE TNAV) TERRANEC BRAR ([id number]) 1965 F Date Time Provider Department 02/17/24 NASH AGRAWAL During your visit today, we recorded the following information about you: Nash Agrawal MA 02/17/2024 10:58 AM Signed POPULATION HEALTH NAVIGATION OUTREACH Action/FY Patient is on Vin[facility] 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 Workbench list for below and needs appointment to address: Mammogram Screening HbA1C LDL Cholesterol Serum Creatinine Colorectal Cancer Screening Dilated Retinal Exam Covid-19 Vaccine() RSV Vaccine(1 - 1-dose 60+ series) Behavioral Health Screening Hemoglobin A1C (%) Date Value 11/23/2019 14.4 Patient due for: Medicare Annual Wellness Visit Breast Cancer Screening Diabetic Eye Exam HBA1C Pharmacy consult Left message for patient to call back. No mychart available. Reason for Outreach Care Gap/HCC or Scheduling Wellness Visits Care Gaps due: Medicare Annual Wellness Visit Breast Cancer Screening Diabetic Eye Exam HBA1C Specialty Scheduling Patient Contacted: Unable or unnecessary to reach patient: Left message HCC related Navigation Signature: Nash Agrawal MA February 17, 2024 7:07 AM Allergies As of Date: 02/17/2024 Noted Allergy Reaction CELEBREX (CELECOXIB) 12/26/2019 2 [...] throat swelling Date Reviewed: 08/10/2023 Reviewed by: Edad Larios LPN - Fully Assessed Reason for Visit: Population Health Navigation Outreach [3910] Cmt: Vinh [facility] SARITA 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 - AWV, Care gaps, HCC gap closure - Ronnie PCSA Prescriptions as of 02/17/2024 - dulaglutide (TRULICITY) 3 mg/0.5 mL pen [...] sugar THREE TIMES DAILY - Insulin [place], Disposable, (BD ULTRA-FINE BEN PEN NEEDLE) 32 gauge x 5/32 ndle Use one needle for each dose. four/day. - aspirin 81 mg chewable tablet DAILY@0800 - Lancets lancets Test blood sugar(s) 3 times daily. Dx: Type 2 DM - Uncontrolled E11.65 Insulin: Yes Problem List As Of Date 02/17/2024 Noted Resolved Depressive disorder, not elsewhere classified [*10/05/2008 02/27/2016 Diabetes mellitus type 2, uncontrolled, without*10/05/2008 02/27/2016 CALCULUS OF KIDNEY [N20.0] 10/05/2008 Tobacco Use Disorder [F17.200] 10/10/2008 Hyperparathyroidism (HCC) [E21.3] 10/24/2008 Disturbance in sleep behavior [G47.9] 12/07/2008 NONTOX UNINODULAR GOITER [E04.1] 12/07/2008 Routine General Medical Examination at [facility]*12/10/2008 06/03/2015 Benign neoplasm of colon [D12.6] 05/15/2014 Abdominal pain, epigastric [R10.13] 05/15/2014 06/03/2015 Gastric ulcer [K25.9] 05/15/2014 Abdominal pain, right upper quadrant [R10.11] 06/05/2014 06/03/2015 Lumbar degenerative disc disease [M51.36] 03/12/2015 Constipation [K59.00] 03/12/2015 06/03/2015 Anemia [D64.9] 03/12/2015 02/27/2016 Hypothyroidism [E03.9] 03/12/2015 Hyperlipidemia associated with type 2 diabetes *03/12/2015 Carpal tunnel syndrome, left [G56.02] 05/27/2015 01/27/2017 Carpal tunnel syndrome, right [G56.01] 05/27/20 (more content not included)... [facility] 02-10-2024 Note HNO ID: [id number] Author: ?, ?, ? Service: ? Author Type: ? Type: Progress Notes Filed: 02/10/2024 10:49 Note Text: Terrance Brar is identified through a medication adherence outreach initiative based on pharmacy claims data from [employer] (insurer) for Non-insulin DM medication(s). Patient is reviewed 02/10/24 due to medication adherence concerns with the following medications (name, strength, sig): trulcity 3mg/0.5ml, inject 3mg once weekly Per data/report, last fill date and days supply: due 12/30/23 Per reconcile dispense, last fill date and days supply: filled 01/25/24 for 28 days Per call to pharmacy, last picked up date and days supply: n/a Outcome of review/outreach: (choose outcome source and status) - Filled later than 7 days after Next fill date per reconcile dispense Ariadna Kyle [facility] 02-10-2024 History of Present illness Narrative Terrance Brar is identified through a medication adherence outreach initiative based on pharmacy claims data from [employer] (insurer) for Non-insulin DM medication(s). Patient is reviewed 02/10/24 due to medication adherence concerns with the following medications (name, strength, sig): trulcity 3mg/0.5ml, inject 3mg once weekly Per data/report, last fill date and days supply: due 12/30/23 Per reconcile dispense, last fill date and days supply: filled 01/25/24 for 28 days Per call to pharmacy, last picked up date and days supply: n/a Outcome of review/outreach: (choose outcome source and status) - Filled later than 7 days after Next fill date per reconcile dispense Ariadna Kyle documented in this encounter [facility] 02-10-2024 Note Patient Outreach ( POHE) TERRANCE BRAR ([id number]) 1965 F Date Time Provider Department 02/10/24 [facility] your visit today, we recorded the following information about you: Ariadna Kyle 02/10/2024 10:49 AM Signed Terrance Flanagan Maykel is identified through a medication adherence outreach initiative based on pharmacy claims data from [employer] (insurer) for Non-insulin DM medication(s). Patient is reviewed 02/10/24 due to medication adherence concerns with the following medications (name, strength, sig): trulcity 3mg/0.5ml, inject 3mg once weekly Per data/report, last fill date and days supply: due 12/30/23 Per reconcile dispense, last fill date and days supply: filled 01/25/24 for 28 days Per call to pharmacy, last picked up date and days supply: n/a Outcome of review/outreach: (choose outcome source and status) - Filled later than 7 days after Next fill date per reconcile dispense Ariadna Kyle Allergies As of Date: 02/10/2024 Noted Allergy Reaction CELEBREX (CELECOXIB) 12/26/2019 2 [...] Cmt: Medication Adherence Outreach Prescriptions as of 02/10/2024 - dulaglutide (TRULICITY) 3 mg/0.5 mL pen [...] sugar THREE TIMES DAILY - Insulin [place], Disposable, (BD ULTRA-FINE BEN PEN NEEDLE) 32 gauge x 5/32 ndle Use one needle for each dose. four/day. - aspirin 81 mg chewable tablet DAILY@0800 - Lancets lancets Test blood sugar(s) 3 times daily. 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 [facility] 01-24-2024 Miscellaneous Notes Phoned patient to schedule ER follow up visit. Patient reported she is not able to come in this week due their car is being repaired. Agreed to 02/01/24 at 2pm for 40 min visit. documented in this encounter [facility] 01-06-2024 History of Present illness Narrative TRANSITION CARE MANAGEMENT (TCM) INITIAL CONTACT Cosmetic Sales Advisor Outreach Provider Action/FYI: Initial contact with patient post discharge, spoke to patient. Patient identified by name and . TRANSITION CARE MANAGEMENT INITIAL OUTREACH DOCUMENTATION: 01/06/2024 Date of Outreach: Outreach Attempt 1: Contact Made Date of Discharge 01/05/2024 SUMMARY: -Pt discharged from [facility] on 01/05/24. -Admitted for:1) PE 2)Chest pressure Do you have a hospital follow up appointment with your PCP? Appointment on 01/13/[address] Lopez. Yes. Remind patient of appointment date, time, and location. If not within 14 calendar days of discharge - please reschedule accordingly. MEDICATIONS: Many patients have questions or concerns about their medications once they are home. Were you prescribed any new medications? Yes Were you told to hold any medications? No Were any of your medications discontinued? If yes, what are those medications? Insulins were adjusted. Do you have any questions about getting or taking your medications? No Your discharge instructions/After visit Summary (AVS) are important in guiding you through the recovery process. Is there anything I might help you understand? No Do you have all the necessary equipment and supplies at home? Yes Medical records from recent hospitalization: Provider reviewed 01/06/24 documented in this encounter [facility] 01-06-2024 Miscellaneous Notes Phoned patient and agreeable with 01/13/24 at 2pm for Hosp F/U documented in this encounter [facility] 01-06-2024 Note Patient Outreach (FA MPWS) JUDI BRARTal Flanagan ([id number]) 1965 F Date Time Provider Department 01/06/24 RACHEL PEREA During your visit today, we recorded the following information about you: Rachel Perea LPN 02/07/2024 3:03 AM Signed TRANSITION CARE MANAGEMENT (TCM) INITIAL CONTACT Cosmetic Sales Advisor Outreach Provider Action/FYI: Initial contact with patient post discharge, spoke to patient. Patient identified by name and . TRANSITION CARE MANAGEMENT INITIAL OUTREACH DOCUMENTATION: 01/06/2024 Date of Outreach: Outreach Attempt 1: Contact Made Date of Discharge 01/05/2024 SUMMARY: -Pt discharged from [facility] on 01/05/24. -Admitted for:1) PE 2)Chest pressure Do you have a hospital follow up appointment with your PCP? Appointment on 01/13/[address] Lopez. Yes. Remind patient of appointment date, time, and location. If not within 14 calendar days of discharge - please reschedule accordingly. MEDICATIONS: Many patients have questions or concerns about their medications once they are home. Were you prescribed any new medications? Yes Were you told to hold any medications? No Were any of your medications discontinued? If yes, what are those medications? Insulins were adjusted. Do you have any questions about getting or taking your medications? No Your discharge instructions/After visit Summary (AVS) are important in guiding you through the recovery process. Is there anything I might help you understand? No Do you have all the necessary equipment and supplies at home? Yes Medical records from recent hospitalization: Provider reviewed 01/06/24 Allergies As of Date: 01/06/2024 Noted Allergy Reaction CELEBREX (CELECOXIB) 12/26/2019 2 [...] LPN - Fully Assessed Reason for Visit: Transition Of Care [4074] Prescriptions as of 02/07/2024 - dulaglutide (TRULICITY) 3 mg/0.5 mL pen [...] sugar THREE TIMES DAILY - Insulin [place], Disposable, (BD ULTRA-FINE BEN PEN NEEDLE) 32 gauge x 5/32 ndle Use one needle for each dose. four/day. - aspirin 81 mg chewable tablet DAILY@0800 - Lancets lancets Test blood sugar(s) 3 times daily. 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 [facility] 11-02-2023 Note HNO ID: [id number] Author: MARLEE PRESCOTT MA Service: ? Author Type: Cosmetic Sales Advisor Type: Progress Notes Filed: 11/02/2023 09:16 Note Text: POPULATION HEALTH NAVIGATION OUTREACH Action/November 02, 2023 Vinh HCC Care Gaps/Scheduling needs Annual Wellness Exam Dilated Eye Exam A1c Urine Albumin Mammogram CRCS Flu shot Outcome/Action Lm on Marlee Prescott MA Patient Identified by Name and : NO Outreach Outcome/Action Unable to reach patient: Left message Did you use a PCP flex slot to schedule this appointment? N/A Reason for Outreach HCC or suspected condition Payer: Payor: [employer] / Plan: [employer] MED[employer]VANT[employer] HMO / [...] 03/25/2021 Influenza Vaccine(1) due on 06/25/2023 Covid-19 Vaccine( season) due on 06/25/2023 RSV Vaccine(1 - 1-dose 60+ series) Never done Depression Assessment Never done Navigation Signature: Marlee Prescott MA November 02, 2023 9:04 AM [facility] 11-02-2023 Note Patient Outreach (NE TNAV) TERRANCE BRAR ([id number]) 1965 F Date Time Provider Department 11/02/23 MARLEE PRESCOTT NETNAV During your visit today, we recorded the following information about you: Marlee Prescott MA 11/02/2023 9:16 AM Signed POPULATION HEALTH NAVIGATION OUTREACH Action/November 02, 2023 Vinh HCC Care Gaps/Scheduling needs Annual Wellness Exam Dilated Eye Exam A1c Urine Albumin Mammogram CRCS Flu shot Outcome/Action Lm on Vm Marlee Prescott MA Patient Identified by Name and : NO Outreach Outcome/Action Unable to reach patient: Left message Did you use a PCP flex slot to schedule this appointment? N/A Reason for Outreach HCC or suspected condition Payer: Payor: [employer] / Plan: [employer] MEDICARE ADVANT[employer] HMO / [...] Depression Assessment Never done Navigation Signature: Marlee Prescott MA November 02, 2023 9:04 AM Allergies [...] Population Health Navigation Outreach [3910] Cmt: Vinh [facility] Prescriptions as of 11/02/2023 - dulaglutide (TRULICITY) [...] sugar THREE TIMES DAILY - Insulin [place], Disposable, (BD ULTRA-FINE BEN PEN NEEDLE) 32 [...] [E04.1] 12/07/2008 Routine General Medical Examination at [facility]*12/10/2008 06/03/2015 Benign neoplasm of colon [D12.6] 05/15/2014 Abdominal pain, epigastric [R10.13] 05/15/2014 06/03/2015 Gastric ulcer [K25.9] 05/15/2014 Abdominal pain, right upper quadrant [R10.11] 06/05/2014 06/03/2015 Lumbar degen (more content not included)... [facility] 10-13-2023 Note HNO ID: [id number] Author: Elizabeth Jennings RPh Service: ? Author [...] Primary New visit types. Elizabeth Jennings RPh [facility] 10-13-2023 Note Patient Outreach ( MEWO) TERRANCE BRAR ([id number]) 1965 F Date Time Provider Department 10/13/23 ELIZABETH JENNINGS MEWO During your visit today, we recorded the [...] Primary New visit types. Elizabeth Jennings RPh Allergies As of Date: 10/13/2023 Noted Allergy [...] 2 diabetes (HCC) [E11.9] Order(s):CONSULT TO PHARMACY [[id number]] Order #: [id number]: 1 Prescriptions as of 10/13/2023 - dulaglutide [...] sugar THREE TIMES DAILY - Insulin [place], Disposable, (BD ULTRA-FINE BEN PEN NEEDLE) 32 [...] [E04.1] 12/07/2008 Routine General Medical Examination at [facility]*12/10/2008 06/03/2015 Benign neoplasm of colon [D12.6] 05/15/2014 [...] obstruction or gangr*09/04/2019 (more content not included)... [facility] 09-20-2023 Note HNO ID: [id number] Author: Ariadna Kyle Service: ? Author Type: ? Type: Progress Notes Filed: 09/20/2023 8:52 AM Note Text: Terrance Brar is identified through a medication adherence outreach initiative based on pharmacy claims data from [employer] (insurer) for Statin medication(s). Patient is reviewed 09/20/23 due to medication adherence concerns with the following medications (name, strength, sig): atorvastatin 40mg, take 1 tablet daily. Per data/report, last fill date and days supply: due 09/20/23 Per reconcile dispense, last fill date and days supply: filled 08/19/23 (reversed) Outcome of review/outreach: (choose outcome source and status) -2nd attempt Left message Ariadna Kyle [facility] 09-20-2023 History of Present illness Narrative Terrance Brar is identified through a medication adherence outreach initiative based on pharmacy claims data from [employer] (insurer) for Statin medication(s). Patient is reviewed [...] Ariadna Kyle documented in this encounter [facility] 09-20-2023 Note [facility] Out[facility] ([facility] TERRANCE BRAR ([id number]) 1965 F Date Time Provider Department 09/20/23 DWAYNE LOPEZ During your visit today, we recorded the following information about you: Ariadna Kyle 09/20/2023 8:52 AM Signed Terrance Brar is identified through a medication adherence outreach initiative based on pharmacy claims data from [employer] (insurer) for Statin medication(s). Patient is reviewed [...] sugar THREE TIMES DAILY - Insulin [place], Disposable, (BD ULTRA-FINE BEN PEN NEEDLE) 32 [...] [E04.1] 12/07/2008 Routine General Medical Examination at [facility]*12/10/2008 06/03/2015 Benign neoplasm of colon [D12.6] 05/15/2014 [...] finger, right [M65 (more content not included)... [facility] 08-20-2023 Note HNO ID: [id number] Author: Sharonda Sanchez Service: ? Author Type: ? Type: Progress Notes Filed: 08/20/2023 4:30 PM Note Text: Terrance Brar is identified through a medication adherence outreach initiative based on pharmacy claims data from [employer] (insurer) for Non-insulin DM medication(s) and Statin [...] Both were out of refill Sharonda Sanchez Forensic Ballistics Expert [facility] 08-20-2023 History of Present illness Narrative Terrance Brar is identified through a medication adherence outreach initiative based on pharmacy claims data from [employer] (insurer) for Non-insulin DM medication(s) and Statin [...] Both were out of refill Sharonda Sanchez Forensic Ballistics Expert documented in this encounter [facility] 08-20-2023 Note Patient Outreach ( POHE) ASHLEY BRARLindaKIMBERLY Flanagan ([id number]) 1965 F Date Time Provider Department 08/20/23 [facility] During your visit today, we recorded the following information about you: Sharonda Sanchez 08/20/2023 4:30 PM Signed Terrance Brar is identified through a medication adherence outreach initiative based on pharmacy claims data from [place] (insurer) for Non-insulin DM medication(s) and Statin [...] Both were out of refill Sharonda Sanchez Forensic Ballistics Expert Allergies As of Date: 08/20/2023 Noted Allergy [...] sugar THREE TIMES DAILY - Insulin [place], Disposable, (BD ULTRA-FINE BEN PEN NEEDLE) 32 [...] [E04.1] 12/07/2008 Routine General Medical Examination at [facility]*12/10/2008 06/03/2015 Benign neoplasm of colon [D12.6] 05/15/2014 [...] 2 with neuro (more content not included)... [facility] 08-18-2023 Miscellaneous Notes Spoke with pt and [...] Provider Department Center 08/26/2023 1:40 PM 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 [facility] Please review and refill if appropriate. Thank you. Sharonda Sanchez August 18, 2023 4:11 PM documented in this encounter [facility] 08-18-2023 Note HNO ID: [id number] Author: Irena Tompkins PSS Service: ? Author Type: ? Type: [...] Care Gap or Scheduling/Wellness visits Payer: Payor: [employer] / Plan: [employer] HMO / Product Type: HMO / Care [...] done Influenza Vaccine(1) due on 06/25/2023 Covid-19 Vaccine(2022-24 season) due on 06/25/2023 Hepatitis B Vaccine(1 of 3 - Risk 3-dose series) Never done RSV Vaccine(1 - 1-dose 60+ series) due on 2023 Navigation Signature: AMY Jeff August 18, 2023 7:58 AM [facility] 08-18-2023 History of Present illness Narrative POPULATION [...] Gap or Scheduling/Wellness visits Payer: Payor: [employer] / Plan: [employer] HMO / Product Type: HMO / Care [...] done Influenza Vaccine(1) due on 06/25/2023 Covid-19 Vaccine(2022- season) due on 06/25/2023 Hepatitis B Vaccine(1 of 3 - Risk 3-dose series) Never done RSV Vaccine(1 - 1-dose 60+ series) due on 2023 Navigation Signature: AMY Jeff August 18, 2023 7:58 AM documented in this encounter [facility] 08-18-2023 Note Patient Outreach (NE TNAV) TERRANCE BRAR ([id number]) 1965 F Date Time Provider Department 08/18/23 IRENA TOMPKINS During your visit today, we recorded the following information about you: Irena Tompkins, PSS 08/18/2023 1:52 PM Signed POPULATION HEALTH [...] Gap or Scheduling/Wellness visits Payer: Payor: [employer] AND [employer] / Plan: [employer] HMO / Product Type: HMO / Care [...] Vaccine(4 - 2022- season) due on 06/25/2023 Hepatitis B Vaccine(1 [...] Population Health Navigation Outreach [3910] Cmt: Vinh care gaps Prescriptions as of 08/18/2023 - fluticasone (FLONASE) [...] sugar THREE TIMES DAILY - Insulin [place], Disposable, (BD ULTRA-FINE BEN PEN NEEDLE) 32 [...] 12/07/2008 Routine General Medical Examination at a [facility]*12/10/2008 06/03/2015 Benign neoplasm of colon [D12.6] 05/15/2014 Abdominal pain, epigastric [R10.13] 05/15/2014 06/03/2015 Gastric (more content not included)... [facility] 08-10-2023 Note HNO ID: [id number] Author: Viktoriya Roy PA-C Service: ? Author Type: Physician [employer] Docent Type: Progress Notes Filed: 08/10/2023 6:06 PM Note Text: This note was created using intelloCutter. Subjective Terrance Brar is a 58 year [...] TIMES DAILY 100 Strip 11 Insulin [place], Disposable, (BD ULTRA-FINE BEN PEN NEEDLE) 32 [...] BIOPSY SINGLE/MULTIPLE 03/25 (more content not included)... [facility] 06-24-2023 Miscellaneous Notes Letter mailed to pt [...] up visit. documented in this encounter [facility] 06-10-2023 Miscellaneous Notes Pt notified of Dr Lopez's message. Pt verbalizes understanding. Advises that she will go to [facility] as instructed. Miguel Ángel Santoyo LPN [...] hour ago. She says she was in [facility] on 06/04 with abdominal pain and received morphine. She states she has abdominal and rectal pain 9/10 mostly when she is straining to have BM. Reviewed triage protocol guidelines with patient. Disposition: See PCP within 24 hours. She is asking for PCP recommendation today. Mindi Temple, RN Reason for Disposition Last bowel movement [...] water/day 8. MEDICATIONS: Says she was in [facility] ER on 06/04 with abdominal pain and received Morphine 9. LAXATIVES: She took stool softener last evening. She took Miralax this morning. She drank 10 ounces of Magnesium citrate one hour ago 10. ACTIVITY: No change in activity in the last week 11. CAUSE: Unknown 12. OTHER SYMPTOMS: nausea, She says she has abdominal pain 07/04 13. MEDICAL HISTORY: No history of hemorrhoids, rectal surgery, rectal fissure Protocols used: [id number] documented in this encounter [facility] 05-24-2023 Miscellaneous Notes Second attempt to reach patient by phone with no answer. Left additional VM to return call to office. As patient does not have , also sent letter to patients home address [...] Department Center 07/09/2023 1:00 PM Jesica Mina [facility] Please review and refill if appropriate. Thank you. Debra Greer May 20, 2023 2:17 PM documented in this encounter [facility] 05-20-2023 Note HNO ID: [id number] Author: Debra Greer Service: ? Author Type: ? Type: Progress Notes Filed: 05/20/2023 2:17 PM Note Text: Terrance Brar is identified through a medication adherence outreach initiative based on pharmacy claims data from [employer] (insurer) for Non-insulin DM medication(s) and Statin [...] status) - No refills remaining Debra Greer [facility] 05-20-2023 History of Present illness Narrative Terrance Brar is identified through a medication adherence outreach initiative based on pharmacy claims data from [employer] (insurer) for Non-insulin DM medication(s) and Statin [...] Debra Greer documented in this encounter [facility] 05-20-2023 Note Patient Outreach ( POHE) TERRANCE BRAR ([id number]) 1965 F Date Time Provider Department 05/20/23 DWAYNE LOPEZ During your visit today, we recorded the following information about you: Debra Greer 05/20/2023 2:17 PM Signed Terrance Flanagan Maykel is identified through a medication adherence outreach initiative based on pharmacy claims data from [employer] (insurer) for Non-insulin DM medication(s) and Statin [...] and status) - No refills remaining Debra Percy Allergies As of Date: 05/20/2023 Noted Allergy [...] throat swelling Date Reviewed: 04/23/2023 Reviewed by: Terrell Degroot APRN.[facility] - Fully Assessed Reason for Visit: Allied [...] sugar THREE TIMES DAILY - Insulin [place], Disposable, (BD ULTRA-FINE BEN PEN NEEDLE) 32 gauge x 32 ndle Use one needle for each dose. [...] [E04.1] 12/07/2008 Routine General Medical Examination at [facility]*12/10/2008 06/03/2015 Benign neoplasm of colon [D12.6] 05/15/2014 [...] right hand [M65.311] more content not included)... [facility] 05-04-2023 Note HNO ID: [id number] Author: Ariadna Kyle Service: ? Author Type: ? Type: Progress Notes Filed: 05/04/2023 2:15 PM Note Text: Terrance Brar is identified through a medication adherence outreach initiative based on pharmacy claims data from [employer] (insurer) for Non-insulin DM medication(s) and Statin [...] status) -Tried calling, no answer Ariadna Kyle [facility] 05-04-2023 History of Present illness Narrative Terrance Brar is identified through a medication adherence outreach initiative based on pharmacy claims data from [employer] (insurer) for Non-insulin DM medication(s) and Statin [...] Ariadna Kyle documented in this encounter [facility] 05-04-2023 Note Patient Outreach ([facility]) TERRANCE BRAR ([id number]) 1965 F Date Time Provider Department 05/04/23 DWAYNE LOPEZ During your visit today, we recorded the following information about you: Ariadna Saroj 05/04/2023 2:15 PM Signed Terrance Brar is identified through a medication adherence outreach initiative based on pharmacy claims data from [employer] (insurer) for Non-insulin DM medication(s) and Statin [...] and status) -Tried calling, no answer Ariadna Saroj Allergies As of Date: 05/04/2023 Noted Allergy [...] throat swelling Date Reviewed: 04/23/2023 Reviewed by: Terrell Degroot APRN.CONSIGNEE - Fully Assessed Prescriptions as of 05/04/2023 [...] sugar THREE TIMES DAILY - Insulin [place], Disposable, (BD ULTRA-FINE BEN PEN NEEDLE) 32 [...] 12/07/2008 Routine General Medical Examination at a [facility]*12/10/2008 06/03/2015 Benign neoplasm of colon [D12.6] [...] little finger [M65.35 (more content not included)... [facility] 04-23-2023 Note HNO ID: [id number] Author: Terrell Degroot APRN.CONSIGNEE Service: ? Author Type: Nurse Practitioner Type: [...] blood sugar THREE TIMES DAILY Insulin [place], Disposable, (BD ULTRA-FINE BEN PEN NEEDLE) 32 [...] CHF, DM eye (more content not included)... [facility] 04-23-2023 History of Present illness Narrative Images from the original note were not included. Subjective HPI HPI Terrance Brar is a [...] 2 diabetes mellitus (HCC) 03/12/2015 Hyperparathyroidism, unspecified ([facility]) 10/24/2008 Hypothyroidism 03/12/2015 Lumbar degenerative disc disease [...] type 2 diabetes mellitus with neurological manifestations ([facility]) 02/27/2016 PAST SURGICAL HISTORY Procedure Laterality Date [...] blood sugar THREE TIMES DAILY Insulin [place], Disposable, (BD ULTRA-FINE BEN PEN NEEDLE) 32 [...] and atraumatic. Nose: Nose normal. Mouth/Throat: Lips: [employer]. Mouth: Mucous membranes are moist. Pharynx: Uvula [...] worsen - CLINDAMYCIN HCL 300 MG CAPSULE Terrell Degroot APRN.CNP documented in this encounter [facility] 04-08-2023 Note HNO ID: [id number] Author: Shital Menezes Service: ? Author Type: [...] Gap or Scheduling/Wellness visits Payer: Payor: [employer] AND [employer] / Plan: [employer] HMO / Product Type: HMO / Care [...] Shital Menezes April 08, 2023 1:51 PM [facility] 04-08-2023 History of Present illness Narrative POPULATION HEALTH NAVIGATION OUTREACH Action/FYI Pt scheduled Patient Identified by Name and : YES, via phone Outreach Outcome/Action Spoke to patient / parent / legal guardian: Patient scheduled Did you use a PCP flex slot to schedule this appointment? No Reason for Outreach Care Gap or Scheduling/Wellness visits Payer: Payor: [employer] AND [employer] SHIELD / Plan: [employer]M MED[employer]LUE HMO / Product Type: HMO / Care [...] 1:51 PM documented in this encounter [facility] 04-08-2023 Note Patient Outreach ([facility]) TERRANCE BRAR ([id number]) 1965 F Date Time Provider Department 04/08/23 PCP (HISTORICAL) [facility] During your visit today, we recorded the following information about you: hSital Menezes 04/08/2023 1:52 PM Signed POPULATION HEALTH NAVIGATION OUTREACH Action/FYI Pt scheduled Patient Identified by Name and : YES, via phone Outreach Outcome/Action Spoke to patient / parent / legal guardian: Patient scheduled Did you use a PCP flex slot to schedule this appointment? No Reason for Outreach Care Gap or Scheduling/Wellness visits Payer: Payor: [employer] AND [facility] / Plan: [employer] HMO / Product Type: HMO / Care [...] sugar THREE TIMES DAILY - Insulin [place], Disposable, (BD ULTRA-FINE BEN PEN NEEDLE) 32 [...] [E04.1] 12/07/2008 Routine General Medical Examination at [facility]*12/10/2008 06/03/2015 Benign neoplasm of colon [D12.6] 05/15/2014 [...] Quervain's tenosynovitis [M65.4] (more content not included)... [facility] 04-07-2023 Miscellaneous Notes Patient here for appointment. Patient scheduled for SNF discharge follow up today at 1320. Phone call to patient to remind her to bring all discharge information to appointment today. LM to call office. Mariama Sandoval MA documented in this encounter [facility] 04-07-2023 History of Present illness Narrative Chief [...] for handicap placard. Patient also evaluated at [facility] ED on 03/28 for constipation for [...] blood sugar THREE TIMES DAILY Insulin [place], Disposable, (BD ULTRA-FINE BEN PEN NEEDLE) 32 [...] which included preparing to see the patient, [id number] patient care, completing clinical documentation, obtaining and/or reviewing separately obtained history, performing a medically appropriate examination, counseling and educating the patient/family/caregiver, and ordering medications, tests, or procedures. Dwayne Lopez MD documented in this encounter [facility] 03-24-2023 History of Present illness Narrative Chief Complaint Patient presents with: Establish Care HPI Ashleylindakimberly Brar is a 57 year old female [...] have not received any records from the [facility] as of yet. Patient has paperwork today [...] blood sugar THREE TIMES DAILY Insulin [place], Disposable, (BD ULTRA-FINE BEN PEN NEEDLE) 32 [...] care visit. Will request discharge records from [facility] along with labs obtained 1-2 weeks ago. Dwayne Lopez MD documented in this encounter [facility] 02-23-2023 History of Present illness Narrative Terrance Brar is identified through a medication adherence outreach initiative based on pharmacy claims data from [employer] (insurer) for Non-insulin DM medication(s) and Statin [...] and per call to patient/caregiver Sharonda Sanchez Forensic Ballistics Expert documented in this encounter [facility] 01-11-2023 History of Present illness Narrative 01/11/23 attempt 3 - no answer 01/04/23 attempt 2 - no answer LVM Pt chart reviewed as part of population health initiative focused on statin use in patients with diabetes (DM) or cardiovascular disease (CVD). Terrance Brar is identified through data from [employer] (insurer) as a potential candidate for statin [...] Hyperlipidemia associated with type 2 diabetes mellitus ([facility]) 03/12/2015 Hyperparathyroidism, unspecified ([facility]) 10/24/2008 Hypothyroidism 03/12/2015 Lumbar degenerative disc disease [...] type 2 diabetes mellitus with neurological manifestations ([facility]) 02/27/2016 Cholesterol, Total (mg/dL) Date Value 12/28/2017 [...] Approving student documentation and outreach below. 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
E11.69 - Hyperlipidemia associated with type 2 diabetes mellitus (HCC) - [id number] Last Billed 12/26/2019
E21.3 - Hyperparathyroidism (HCC) - [id number] Last Billed 09/18/2019
patient also due for [...] Outreach HCC or suspected condition Payer: Payor: [employer] AND [employer] / Plan: [employer] HMO / Product Type: HMO / Care [...] 12:55 PM documented in this encounter [facility] 07-23-2015 History of Past i llness Narrative Problem Noted Date Resolved Date Trigger thumb [...] of this encounter (statuses as of 04/03/2022) [facility] History of Past illness Narrative* Problem Noted [...] of this encounter (statuses as of 01/21/2023) [facility] History of Past illness Narrative* Problem Noted [...] of this encounter (statuses as of 02/24/2023) [facility] History of Past illness Narrative* Problem Noted [...] of this encounter (statuses as of 03/24/2023) [facility] History of Past illness Narrative* Problem Noted [...] of this encounter (statuses as of 04/07/2023) [facility] History of Past illness Narrative* Problem Noted [...] of this encounter (statuses as of 04/08/2023) [facility] History of Past illness Narrative* Problem Noted [...] of this encounter (statuses as of 04/12/2023) [facility] History of Past illness Narrative* Problem Noted [...] of this encounter (statuses as of 04/23/2023) [facility] History of Past illness Narrative* Problem Noted [...] of this encounter (statuses as of 05/05/2023) [facility] History of Past [facility] Narrative* Problem Noted [...] of this encounter (statuses as of 05/20/2023) [facility] History of Past illness Narrative* Problem Noted [...] of this encounter (statuses as of 05/24/2023) [facility] History of Past illness Narrative* Problem Noted [...] of this encounter (statuses as of 06/10/2023) [facility] History of Past illness Narrative* Problem Noted [...] of this encounter (statuses as of 06/30/2023) [facility] History of Past illness Narrative* Problem Noted [...] of this encounter (statuses as of 08/18/2023) [facility] History of Past illness Narrative* Problem Noted [...] of this encounter (statuses as of 08/19/2023) [facility] History of Past illness Narrative* Problem Noted [...] of this encounter (statuses as of 08/20/2023) [facility] History of Past illness Narrative* Problem Noted [...] of this encounter (statuses as of 09/20/2023) [facility] History of Past illness Narrative* Problem Noted [...] as of this encounter (statuses as of 01/06/2024) [facility] History of Past illness Narrative* Problem Noted [...] as of this encounter (statuses as of 01/25/2024) [facility] History of Past illness Narrative* Problem Noted [...] as of this encounter (statuses as of 02/07/2024) [facility] History of Past illness Narrative* Problem Noted [...] as of this encounter (statuses as of 02/10/2024) [facility] [place] [facility] Diagnosis Globus sensation- Primary Gastrointestinal malfunction arising from mental factors Gastroesophageal reflux disease, unspecified whether esophagitis present [facility]* Diagnosis Generalized weakness- Primary Other malaise [...] type dependence, continuous [facility]* Diagnosis Toothache- Primary Unspecified disorder of the teeth and supporting structures [facility]* Diagnosis Encounter for screening mammogram for breast cancer documented in this encounter [facility] for referral (narrative)* Diagnostic Procedure Only (Routine) - Pending Review Specialty Diagnoses / Procedures Referred By Contac t Referred To Contact [facility]AG[facility] Diagnoses Encounter for screening mammogram for breast cancer Procedures OLIVER SCREENING SCREENING MAMMOGRAPHY BI 2-VIEW BREAST INC CAD Dwayne Lopez MD [address] [place] [address] [facility] [address] [place] [address] Referral ID Status Reason Start Date Expiration Date Visits Requested Visits Authorized [id number] Pending Review Auto-Generat ed Referral 03/08/2024 04/07/2025 1 1 [facility] Summary Purpose Family History No Family History Records FoundNo Family History Records FoundNo Family History Records FoundNo Family History Records FoundNo Family History Records FoundNo Family History Records Found Advance Directives No Advanced Directives Records FoundDocuments on File Type Date 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 Advance Directive(s) 10/10/2020 10:19 AM Advance Directive(s) 10/01/2020 10:25 AM Advance Directive(s) 05/20/2020 4:17 PM Advance Directive(s) 05/09/2020 11:51 AM Advance Directive(s) 05/03/2020 11:33 AM Advance Directive(s) 10/12/2019 1:17 PM Advance Directive(s) 06/30/2017 11:57 AM Advance Directive(s) 06/23/2017 8:06 AM Advance Directive(s) 04/08/2016 8:19 AM Advance Directive(s) 03/31/2016 11:25 AM Reason for Referral Specialty Diagnoses / Procedures Referred By Contac t Referred To Contact Podiatry Diagnoses Diabetic polyneuropathy associated with type 2 diabetes mellitus (HCC) Procedures CONSULT TO PODIATRY OFFICE/OUTPATIENT [facility] MDM 60-74 MINUTES Dwayne Lopez MD [address] [place] [address] Referral ID Status Reason Start Date Expiration Date Visits Requested Visits Authorized [id number] Pending Review PCP Requested Referral 04/07/2023 04/06/2024 1 1 Specialty Diagnoses / Procedures Referred By Contac t Referred To Contact General Surgery Diagnoses Globus sensation Screening for colon cancer Procedures CONSULT TO GENERAL SURGERY OFFICE/OUTPATIENT [facility] MDM 60-74 MINUTES Dwayne Lopez MD [address] [place] [address] Referral ID Status Reason Start Date Expiration Date Visits Requested Visits Authorized [id number] Pending Review PCP Requested Referral 04/07/2023 04/06/2024 1 1 Specialty Diagnoses / Procedures Referred By Mamta redmond Referred To Contact Ophthalmology Diagnoses Diabetes mellitus type 2 with neurological manifestations (HCC) Change in vision Procedures CONSULT TO OPHTHALMOLOGY OFFICE/OUTPATIENT [facility] MDM 60-74 MINUTES Dwayne Lopez MD [address] [place] [address] Referral ID Status Reason Start Date Expiration Date Visits Requested Visits Authorized [id number] Pending Review PCP Requested Referral 04/07/2023 04/06/2024 1 1 Additional Source Comments INFORMATION SOURCE (unrecogn ized section and content) DATE CREATED AUTHOR 04/13/2018 [facility] DATE CREATED AUTHOR AUTHOR'S ORGANIZ ATION 04/14/2018 [facility] DATE CREATED AUTHOR AUTHOR'S ORGANIZ ATION 10/05/2018 [facility] DATE CREATED AUTHOR AUTHOR'S ORGANIZ ATION 10/19/2019 [facility] DATE CREATED AUTHOR AUTHOR'S ORGANIZ ATION 09/28/2020 [facility] ([place]) DATE CREATED AUTHOR AUTHOR'S ORGANIZ ATION 04/07/2024 [facility] Source Comments (unrecognize d section and content) In the event this informatio n is protected by the Federal Confidentiality of Alcohol and Drug Abuse Patient Records regulations: The Federal rules restrict any use of the information to criminally investigate or prosecute any alcohol or drug abuse patient.[facility] the event this information is protected by the Federal Confidentiality of Alcohol and Drug Abuse Patient Records regulations: The Federal rules restrict any use of the information to criminally investigate or prosecute any alcohol or drug abuse patient.[facility] the event this information is protected by the Federal Confidentiality of Alcohol and Drug Abuse Patient Records regulations: The Federal rules restrict any use of the information to criminally investigate or prosecute any alcohol or drug abuse patient.[facility] the event this information is protected by the Federal Confidentiality of Alcohol and Drug Abuse Patient Records regulations: The Federal rules restrict any use of the information to criminally investigate or prosecute any alcohol or drug abuse patient.[facility] the event this information is protected by the Federal Confidentiality of Alcohol and Drug Abuse Patient Records regulations: The Federal rules restrict any use of the information to criminally investigate or prosecute any alcohol or drug abuse patient.[facility]In the event this information is protected by the Federal Confidentiality of Alcohol and Drug Abuse Patient Records regulations: The Federal rules restrict any use of the information to criminally investigate or prosecute any alcohol or drug abuse patient.[facility]In the event this information is protected by the Federal Confidentiality of Alcohol and Drug Abuse Patient Records regulations: The Federal rules restrict any use of the information to criminally investigate or prosecute any alcohol or drug abuse patient.[facility] the event this information is protected by the Federal Confidentiality of Alcohol and Drug Abuse Patient Records regulations: The Federal rules restrict any use of the information to criminally investigate or prosecute any alcohol or drug abuse patient.[facility]In the event this information is protected by the Federal Confidentiality of Alcohol and Drug Abuse Patient Records regulations: The Federal rules restrict any use of the information to criminally investigate or prosecute any alcohol or drug abuse patient.[facility] the event this information is protected by the Federal Confidentiality of Alcohol and Drug Abuse Patient Records regulations: The Federal rules restrict any use of the information to criminally investigate or prosecute any alcohol or drug abuse patient.[facility]In the event this information is protected by the Federal Confidentiality of Alcohol and Drug Abuse Patient Records regulations: The Federal rules restrict any use of the information to criminally investigate or prosecute any alcohol or drug abuse patient.[facility]In the event this information is protected by the Federal Confidentiality of Alcohol and Drug Abuse Patient Records regulations: The Federal rules restrict any use of the information to criminally investigate or prosecute any alcohol or drug abuse patient.[facility]In the event this information is protected by the Federal Confidentiality of Alcohol and Drug Abuse Patient Records regulations: The Federal rules restrict any use of the information to criminally investigate or prosecute any alcohol or drug abuse patient.[facility]In the event this information is protected by the Federal Confidentiality of Alcohol and Drug Abuse Patient Records regulations: The Federal rules restrict any use of the information to criminally investigate or prosecute any alcohol or drug abuse patient.[facility]In the event this information is protected by the Federal Confidentiality of Alcohol and Drug Abuse Patient Records regulations: The Federal rules restrict any use of the information to criminally investigate or prosecute any alcohol or drug abuse patient.[facility]In the event this information is protected by the Federal Confidentiality of Alcohol and Drug Abuse Patient Records regulations: The Federal rules restrict any use of the information to criminally investigate or prosecute any alcohol or drug abuse patient.[facility]In the event this information is protected by the Federal Confidentiality of Alcohol and Drug Abuse Patient Records regulations: The Federal rules restrict any use of the information to criminally investigate or prosecute any alcohol or drug abuse patient.[facility]In the event this information is protected by the Federal Confidentiality of Alcohol and Drug Abuse Patient Records regulations: The Federal rules restrict any use of the information to criminally investigate or prosecute any alcohol or drug abuse patient.[facility]In the event this information is protected by the Federal Confidentiality of Alcohol and Drug Abuse Patient Records regulations: The Federal rules restrict any use of the information to criminally investigate or prosecute any alcohol or drug abuse patient.[facility]In the event this information is protected by the Federal Confidentiality of Alcohol and Drug Abuse Patient Records regulations: The Federal rules restrict any use of the information to criminally investigate or prosecute any alcohol or drug abuse patient.[facility]In the event this information is protected by the Federal Confidentiality of Alcohol and Drug Abuse Patient Records regulations: The Federal rules restrict any use of the information to criminally investigate or prosecute any alcohol or drug abuse patient.[facility]In the event this information is protected by the Federal Confidentiality of Alcohol and Drug Abuse Patient Records regulations: The Federal rules restrict any use of the information to criminally investigate or prosecute any alcohol or drug abuse patient.[facility]healthIn the event this information is protected by the Federal Confidentiality of Alcohol and Drug Abuse Patient Records regulations: The Federal rules restrict any use of the information to criminally investigate or prosecute any alcohol or drug abuse patient.[facility]In the event this information is protected by the Federal Confidentiality of Alcohol and Drug Abuse Patient Records regulations: The Federal rules restrict any use of the information to criminally investigate or prosecute any alcohol or drug abuse patient.[facility]healthIn the event this information is protected by the Federal Confidentiality of Alcohol and Drug Abuse Patient Records regulations: The Federal rules restrict any use of the information to criminally investigate or prosecute any alcohol or drug abuse patient.[facility]In the event this information is protected by the Federal Confidentiality of Alcohol and Drug Abuse Patient Records regulations: The Federal rules restrict any use of the information to criminally investigate or prosecute any alcohol or drug abuse patient.[facility] Reason for Visit (unrecogniz ed section and content) Reason Onset Date Comments Population Health Navigation Outreach 04/03/2022 HCC Reason Onset Date Comments Medication Update 01/01/2023 [...] Date Comments Population Health Navigation Outreach 08/18/2023 [place] care gaps Reason Onset Date Comments Refill Request 08/18/2023 Reason Onset Date Comments Allied Health Visit 08/20/2023 Medication A dherence Outreach Reason Onset Date Comments Allied Health Visit 09/20/2023 Medication A dherence Outreach Reason Comments Appointment Hospital follow up ( 40 min as patient hasn't followed up as advised either LEA March 2023) Reason Onset Date Comments Transition Of Care 01/06/2024 Reason Onset Date Comments Allied Health Visit 02/10/2024 Medication A dherence Outreach Reason Onset Date Comments Population Health Navigation Outreach 02/17/2024 [facility] [place] 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 - AWV, Care gaps, HCC gap closure - Ronnie PCSA Reason Onset Date Comments Refill Request 03/21/2024 Reason Onset Date Comments ACM TIARA RN 04/06/2024 Care Teams (unrecognized sec tion and content) Talcer Relationship Specialty Start Date End Date Dwayne Lopez MD [address] [place] [address] PCP - General Family Medicine 03/24/23 Talcer Relationship Specialty Start Date End Date Dwayne Lopez MD [address] [place] [address] PCP - General Family Medicine 03/24/23 Talcer Relationship Specialty Start Date End Date Dwayne Lopez MD [address] [place] [address] PCP - General Family Medicine 03/24/23 Talcer Relationship Specialty Start Date End Date Dwayne Lopez MD [address] [place] [address] PCP - General Family Medicine 03/24/23 Talcer Relationship Specialty Start Date End Date Dwayne Lopez MD [address] [place] [address] PCP - General Family Medicine 03/24/23 Talcer Relationship Specialty Start Date End Date Dwayne Lopez MD [address] [place] [address] PCP - General Family Medicine 03/24/23 Talcer Relationship Specialty Start Date End Date Dwayne Lopez MD [address] [place] [address] PCP - General Family Medicine 03/24/23 Talcer Relationship Specialty Start Date End Date Dwayne Lopez MD [address] [place] [address] PCP - General Family Medicine 03/24/23 Talcer Relationship Specialty Start Date End Date Dwayne Lopez MD [address] [facility] [place] [address] PCP - General Family Medicine 03/24/23 Talcer Relationship Specialty Start Date End Date Dwayne Lopez MD [address] [facility] [place] [address] PCP - General Family Medicine 03/24/23 Talcer Relationship Specialty Start Date End Date Dwayne Lopez MD [address] [facility] [place] [address] PCP - General Family Medicine 03/24/23 Talcer Relationship Specialty Start Date End Date Dwayne Lopez MD [address] [facility] [place] [address] PCP - General Family Medicine 03/24/23 Talcer Relationship Specialty Start Date End Date Dwayne Lopez MD [address] [facility] [place] [address] PCP - General Family Medicine 03/24/23 Talcer Relationship Specialty Start Date End Date Dwayne Lopez MD [address] [facility] [place] [address] PCP - General Family Medicine 03/24/23 Talcer Relationship Specialty Start Date End Date Dwayne Lopez MD [address] [facility] [place] [address] PCP - General Family Medicine 03/24/23 FOR [...] BE BASED ON THE PRIMARY CLINICAL RECORDS. [facility] provides no warranty or guarantee of the accuracy or completeness of information in this document.
[2024-08-19 23:02] LABS: Anion Gap 6 (5-15); BUN 23 mg/dL (7-18); BUN/Creat Ratio 19.8 RATIO (10-20); Calcium,Total 8.9 mg/dL (8.5-10.1); Chloride 104 mmol/L (98-107); Creatinine, Serum 1.16 mg/dL (0.55-1.02); EST Glomerular Filtration Rate 51 mL/min (>60); Est Glom Filt Rate - Afr Amer 61 mL/min (>60); Estimated Creatinine Clearance 49.77 ml/min; Glucose 233 mg/dL (74-106); Potassium 4.7 mmol/L (3.5-5.1); Sodium Level 137 mmol/L (136-145); Troponin-I HS (w/2H Reflex) 18 pg/mL (3.0-54.0)
[2024-08-19 23:25] VITALS: BP 148/75; PULSE 79; RESP 12; O2SAT 95
[2024-08-20] VITALS: BP 149/68; PULSE 78; RESP 14; O2SAT 98
--- NOTE | 2024-08-20 00:04 | EKG12_ITS ---
Test Reason : CP Blood Pressure : / mmHG Vent. Rate : 085 BPM Atrial Rate : 085 BPM P-R Int : 170 ms QRS Dur : 076 ms QT Int : 400 ms P-R-T Axes : 032 -24 005 degrees QTc Int : 476 ms Normal sinus rhythm Anterior infarct (cited on or before 12-DEC-2020) Abnormal ECG Confirmed by MIRACLE MOORE MD ([id number]), food editor JAMAAL CALLES ([id number]) on 08/21/2024 9:44:50 AM Referred By: CON Confirmed By:MIRACLE MOORE MD
--- NOTE | 2024-08-20 00:04 | CT_ITS ---
EXAM: CT ANGIOGRAPHY CHEST WITHOUT AND WITH INTRAVENOUS CONTRAST CLINICAL INDICATION: chest pain, hx of PE TECHNIQUE: Helically acquired angiography images were obtained of the chest without and with intravenous contrast. This CT exam was performed using one or more of the following dose reduction techniques: automated exposure control, adjustment of the mA and/or kV according to patient size, and/or use of iterative reconstruction technique. MIP reconstructed images were created and reviewed. CONTRAST: IV 100mL [id number]-370 RADIATION DOSE: CTDIvol = 16.15 mGy, DLP = 496.04 mGy-cm. COMPARISON: January 01, 2024 CTA chest showing bilateral PE involving all lobes left ventricular wall and septal hypertrophy coronary artery calcifications. July 08, [address] . FINDINGS: PULMONARY ARTERIES: Unremarkable. Normal in caliber. No evidence of pulmonary embolism. No evidence of residual or recurrent PE. AORTA: Atherosclerotic calcification of the aorta and at the origins of the great vessels. Normal in caliber. No evidence of dissection. GREAT VESSELS OF AORTIC ARCH: Unremarkable. Normal in caliber. No evidence of dissection. LUNGS AND PLEURAL SPACES: Minimal atelectasis in the left lung base and lingula. No convincing infiltrates or effusions. No mass. No pneumothorax. HEART: There is moderate calcification and/or stents in left anterior descending coronary artery. Minimal right coronary artery calcifications. Left ventricular wall and septal hypertrophy small left ventricular chamber. No intracardiac filling defects. Normal heart size. Slight pericardial effusion similar to prior exam. MEDIASTINUM: Unremarkable. No mediastinal or hilar adenopathy. Esophagus is unremarkable. No hiatal hernia. THYROID: Unremarkable. No thyroid lesions. BONES/JOINTS: Unremarkable. No suspicious lytic or blastic abnormality. GALLBLADDER AND BILE DUCTS: UPPER ABDOMEN Stable prominent common duct of 1.2 cm at the bishop, most of the abdomen is not included. Similar calcified granulomas in the liver and spleen, they are not fully included. Unremarkable adrenals. CT/CTA Chest W/WO Contrast IMPRESSION: 1. No acute intrathoracic abnormality. No residual or recurrent PE. 2. Coronary artery calcifications and/or stents. Left ventricular wall and septal hypertrophy. Electronically Signed: Olya Cottrell MD at 1:29 EDT ,
[2024-08-20 00:16] LABS: Reflex Troponin-HS? (from REC) Y
[2024-08-20] MEDS: Morphine 4 MG/ML Syringe IV (00:24)
[2024-08-20 00:33] LABS: Troponin-I HS 14 pg/mL (3.0-54.0)
[2024-08-20 01:00] VITALS: BP 146/55; PULSE 87; RESP 13; O2SAT 96
[2024-08-20 02:00] VITALS: BP 125/54; PULSE 79; RESP 13; O2SAT 96
[2024-08-20 03:00] VITALS: BP 127/57; PULSE 82; RESP 13; O2SAT 97
[2024-08-20 04:00] VITALS: BP 114/53; PULSE 79; RESP 16; O2SAT 97
[2024-08-20 04:37] VITALS: BP 114/53; PULSE 78; RESP 12; TEMP 36.8; O2SAT 95
== END 2024-08-20 04:57 | disposition home or self-care (01) ==
PROVIDERS: Emergency Provider Emergency Medicine; PCP Internal Medicine; Visit Provider Emergency Medicine
DX: R07.9 Chest pain, unspecified (principal); E11.22 Type 2 diabetes mellitus with diabetic chronic kidney disease; N18.30 Chronic kidney disease, stage 3 unspecified; E78.00 Pure hypercholesterolemia, unspecified; Z79.01 Long term (current) use of anticoagulants; I12.9 Hypertensive chronic kidney disease with stage 1 through stage 4 chronic kidney disease, or unspecified chronic kidney disease; E78.5 Hyperlipidemia, unspecified; Z90.710 Acquired absence of both cervix and uterus; Z87.891 Personal history of nicotine dependence; Z82.5 Family history of asthma and other chronic lower respiratory diseases; Z86.711 Personal history of pulmonary embolism; R06.00 Dyspnea, unspecified; Z86.718 Personal history of other venous thrombosis and embolism; E03.9 Hypothyroidism, unspecified
CPT/HCPCS: 71045; 71275; 80048; 84484; 85025; 93005; 96374; 96375; 96376; 99285; Q9967; A4216; J2405

== ENCOUNTER → 2024-08-25 | Outpatient (CLI) | payer MEDICARE, MEDICAID, SELFPAY ==
--- NOTE | 2024-08-25 10:04 | CDU_ITS ---
Reason For Study: Cerebral Artery Syndrome Rt. Velocities/BP Lt. Velocities/BP Prox CCA 80/14 cm/sec. Prox CCA 107/18 cm/sec. Mid CCA 85/17 cm/sec. Mid CCA 78/18 cm/sec. Dist CCA 67/14 cm/sec. Dist CCA 78/17 cm/sec. Prox ICA 70/18 cm/sec. Prox ICA 82/25 cm/sec. Mid ICA 116/34 cm/sec. Mid ICA 94/28 cm/sec. Dist ICA 103/27 cm/sec. Dist ICA 93/31 cm/sec. Rt. ICA/CCA = 1.4. Lt. ICA/CCA = 1.2. Prox ECA 86/12 cm/sec. Prox ECA 68/8 cm/sec. Rt. Vert. 57/14 cm/sec. Lt. Vert. 61/19 cm/sec. Right Extracranial There is heterogeneous, irregular atherosclerotic plaque noted in the right common carotid artery. There is heterogeneous, irregular atherosclerotic plaque noted in the right internal carotid artery. There is intimal thickening but no significant atherosclerotic plaque noted in the right external carotid artery. Antegrade flow is noted in the right vertebral artery. Left Extracranial There is heterogeneous, irregular atherosclerotic plaque noted in the left common carotid artery. There is heterogeneous, irregular atherosclerotic plaque noted in the left internal carotid artery. The atherosclerotic plaque causes acoustic shadowing. There is heterogeneous, irregular atherosclerotic plaque noted in the left external carotid artery. Antegrade flow is noted in the left vertebral artery. Procedure Carotid Duplex 54916. This is a Carotid Duplex examination using B-mode, color flow and specral Doppler. Exam performed in department. VL/Carotid Duplex Ultrasound Interpretation Summary Mild (<50%) stenosis right extracranial internal carotid. Mild (<50%) stenosis left extracranial internal carotid. Flow within the vertebral arteries is antegrade bilaterally. Ordering Physician: Daniel Mari Referring Physician: Lizet Linares Performed By: Mariama Marshall, RDCS, RVT
== END | disposition home or self-care (01) ==
LOC: CVS 10:03
PROVIDERS: PCP Internal Medicine; Referring Provider Ophthalmology; Visit Provider Ophthalmology
DX: G45.2 Multiple and bilateral precerebral artery syndromes (principal); R51.9 Headache, unspecified
CPT/HCPCS: 93880

== ENCOUNTER → 2024-08-25 | Outpatient (REF) | payer MEDICARE, MEDICAID, SELFPAY ==
[2024-08-25 08:35] LABS: Absolute Lymphocyte Count 2.39 X10^3/uL (0.83-4.51); Absolute Neutrophil Count 2.5 X10^3/uL (2.0-7.7); Basophil# 0.03 X10^3/uL; Basophil% 0.6 % (0-1); Eosinophil# 0.11 X10^3/uL; Eosinophils% 2.1 % (0-5); Hematocrit 31.1 % (37-47); Hemoglobin 9.6 g/dL (12.0-15.0); Lymphocyte # 2.39 X10^3/ul (0.83-4.51); Lymphocyte % 44.7 % (19-41); Mean Corp Hgb Conc 30.9 g/dL (32-36); Mean Corpuscular Hgb 27.7 pg (27.0-32.0); Mean Corpuscular Volume 89.6 fL (81-99); Mean Platelet Vol. 9.7 fl (6.2-12.0); Monocyte# 0.31 X10^3/uL; Monocyte% 5.8 % (0-10); NRBC Flagged by Analyzer 0 % (0-5); Neutrophil % 46.6 % (47-70); Platelet Count 308 K/mm3 (150-450); RBC Distribution Width CV 14.4 % (11.6-14.6); RBC Distribution Width SD 46.3 fl (35.1-43.9); Red Blood Count 3.47 M/mm3 (4.2-5.4); White Blood Count 5.4 K/mm3 (4.4-11.0)
[2024-08-25 09:00] LABS: Hemoglobin A1c 6.9 % (3.8-5.6)
[2024-08-25 09:10] LABS: AST(SGOT) 26 U/L (15-37); Alanine Aminotransfer ALT/SGPT 28 U/L (13-56); Albumin, Serum 2.8 g/dL (3.2-5.0); Alkaline Phosphatase 37 U/L (45-117); Anion Gap 5 (5-15); BUN 15 mg/dL (7-18); BUN/Creat Ratio 14.6 RATIO (10-20); Bilirubin, Direct 0.14 mg/dL (0.00-0.30); Calcium,Total 8.7 mg/dL (8.5-10.1); Chloride 108 mmol/L (98-107); Creatinine, Serum 1.03 mg/dL (0.55-1.02); EST Glomerular Filtration Rate 58 mL/min (>60); Est Glom Filt Rate - Afr Amer 70 mL/min (>60); Glucose 168 mg/dL (74-106); Potassium 4.1 mmol/L (3.5-5.1); Protein, Total 5.8 g/dL (6.4-8.2); Sodium Level 140 mmol/L (136-145)
== END ==
LOC: OLS.WHLEAS 05:00
PROVIDERS: PCP Internal Medicine; Visit Provider Internal Medicine
DX: E11.22 Type 2 diabetes mellitus with diabetic chronic kidney disease (principal); N18.9 Chronic kidney disease, unspecified
CPT/HCPCS: 36415; 80048; 80076; 83036; 85025; 86140

== ENCOUNTER → 2024-09-01 05:00 | Outpatient (REF) | payer MEDICARE, SELFPAY ==
[2024-09-01 07:13] LABS: Absolute Lymphocyte Count 2.42 X10^3/uL (0.83-4.51); Basophil# 0.04 X10^3/uL; Basophil% 0.7 % (0-1); Eosinophil# 0.08 X10^3/uL; Eosinophils% 1.3 % (0-5); Hematocrit 31.3 % (37-47); Hemoglobin 9.8 g/dL (12.0-15.0); Lymphocyte # 2.42 X10^3/ul (0.83-4.51); Lymphocyte % 40.7 % (19-41); Mean Corp Hgb Conc 31.3 g/dL (32-36); Mean Corpuscular Hgb 27.9 pg (27.0-32.0); Mean Corpuscular Volume 89.2 fL (81-99); Mean Platelet Vol. 9.7 fl (6.2-12.0); Monocyte# 0.36 X10^3/uL; Monocyte% 6.1 % (0-10); NRBC Flagged by Analyzer 0 % (0-5); Neutrophil # 3.01 X10^3/uL (2.7-7.7); Neutrophil % 50.7 % (47-70); Platelet Count 324 K/mm3 (150-450); RBC Distribution Width CV 14.6 % (11.6-14.6); RBC Distribution Width SD 46.9 fl (35.1-43.9); Red Blood Count 3.51 M/mm3 (4.2-5.4); White Blood Count 5.9 K/mm3 (4.4-11.0)
[2024-09-01 07:31] LABS: Anion Gap 6 (5-15); BUN 30 mg/dL (7-18); BUN/Creat Ratio 21.7 RATIO (10-20); Calcium,Total 8.9 mg/dL (8.5-10.1); Chloride 105 mmol/L (98-107); Creatinine, Serum 1.38 mg/dL (0.55-1.02); EST Glomerular Filtration Rate 41 mL/min (>60); Est Glom Filt Rate - Afr Amer 50 mL/min (>60); Glucose 205 mg/dL (74-106); Potassium 4.2 mmol/L (3.5-5.1); Sodium Level 137 mmol/L (136-145)
== END ==
LOC: OLS.WHLEAS 05:00
PROVIDERS: PCP Internal Medicine; Visit Provider Internal Medicine
DX: E11.22 Type 2 diabetes mellitus with diabetic chronic kidney disease (principal); N18.9 Chronic kidney disease, unspecified; E11.65 Type 2 diabetes mellitus with hyperglycemia
CPT/HCPCS: 36415; 80048; 85025

== ENCOUNTER → 2024-09-08 | Outpatient (REF) | payer MEDICARE, MEDICAID, SELFPAY ==
[2024-09-08 07:12] LABS: Absolute Neutrophil Count 3.1 X10^3/uL (2.0-7.7); Basophil# 0.04 X10^3/uL; Basophil% 0.7 % (0-1); Eosinophil# 0.13 X10^3/uL; Eosinophils% 2.2 % (0-5); Hematocrit 34.1 % (37-47); Hemoglobin 10.7 g/dL (12.0-15.0); Lymphocyte % 38.7 % (19-41); Mean Corp Hgb Conc 31.4 g/dL (32-36); Mean Corpuscular Hgb 27.9 pg (27.0-32.0); Mean Platelet Vol. 9.4 fl (6.2-12.0); Monocyte# 0.32 X10^3/uL; Monocyte% 5.4 % (0-10); NRBC Flagged by Analyzer 0 % (0-5); Neutrophil # 3.11 X10^3/uL (2.7-7.7); Neutrophil % 52.3 % (47-70); Platelet Count 368 K/mm3 (150-450); RBC Distribution Width CV 14.4 % (11.6-14.6); RBC Distribution Width SD 46.2 fl (35.1-43.9); Red Blood Count 3.83 M/mm3 (4.2-5.4); White Blood Count 5.9 K/mm3 (4.4-11.0)
[2024-09-08 07:29] LABS: Anion Gap 5 (5-15); BUN 21 mg/dL (7-18); BUN/Creat Ratio 17.1 RATIO (10-20); Chloride 105 mmol/L (98-107); Creatinine, Serum 1.23 mg/dL (0.55-1.02); EST Glomerular Filtration Rate 47 mL/min (>60); Est Glom Filt Rate - Afr Amer 57 mL/min (>60); Glucose 164 mg/dL (74-106); Potassium 4.2 mmol/L (3.5-5.1); Sodium Level 138 mmol/L (136-145)
== END ==
LOC: OLS.WHLEAS 05:00
PROVIDERS: PCP Internal Medicine; Visit Provider Internal Medicine
DX: E11.22 Type 2 diabetes mellitus with diabetic chronic kidney disease (principal); E11.65 Type 2 diabetes mellitus with hyperglycemia; N18.9 Chronic kidney disease, unspecified
CPT/HCPCS: 36415; 80048; 85025; 86140

== ENCOUNTER → 2024-09-15 | Outpatient (REF) | payer MEDICARE, MEDICAID, SELFPAY ==
[2024-09-15 08:02] LABS: Absolute Lymphocyte Count 2.87 X10^3/uL (0.83-4.51); Absolute Neutrophil Count 3.7 X10^3/uL (2.0-7.7); Basophil# 0.05 X10^3/uL; Basophil% 0.7 % (0-1); Eosinophil# 0.16 X10^3/uL; Eosinophils% 2.2 % (0-5); Hematocrit 32.6 % (37-47); Hemoglobin 10.6 g/dL (12.0-15.0); Lymphocyte # 2.87 X10^3/ul (0.83-4.51); Lymphocyte % 39.5 % (19-41); Mean Corp Hgb Conc 32.5 g/dL (32-36); Mean Corpuscular Hgb 28.7 pg (27.0-32.0); Mean Corpuscular Volume 88.3 fL (81-99); Mean Platelet Vol. 9.4 fl (6.2-12.0); Monocyte# 0.43 X10^3/uL; Monocyte% 5.9 % (0-10); NRBC Flagged by Analyzer 0 % (0-5); Neutrophil # 3.72 X10^3/uL (2.7-7.7); Neutrophil % 51.3 % (47-70); Platelet Count 345 K/mm3 (150-450); RBC Distribution Width CV 14.1 % (11.6-14.6); RBC Distribution Width SD 45.3 fl (35.1-43.9); Red Blood Count 3.69 M/mm3 (4.2-5.4); White Blood Count 7.3 K/mm3 (4.4-11.0)
[2024-09-15 08:20] LABS: Anion Gap 7 (5-15); BUN 22 mg/dL (7-18); Chloride 102 mmol/L (98-107); Creatinine, Serum 1.47 mg/dL (0.55-1.02); EST Glomerular Filtration Rate 38 mL/min (>60); Est Glom Filt Rate - Afr Amer 46 mL/min (>60); Glucose 130 mg/dL (74-106); Sodium Level 135 mmol/L (136-145)
== END ==
LOC: OLS.WHLEAS 05:00
PROVIDERS: PCP Internal Medicine; Visit Provider Internal Medicine
DX: E11.22 Type 2 diabetes mellitus with diabetic chronic kidney disease (principal); N18.9 Chronic kidney disease, unspecified
CPT/HCPCS: 36415; 80048; 85025

== ENCOUNTER → 2024-09-20 | Outpatient (REF) | payer MEDICARE, SELFPAY ==
[2024-09-20 07:41] LABS: Thyroid Stim Hormone (TSH) 0.718 uIU/mL (0.358-3.740)
== END ==
LOC: OLS.WHLEAS 05:00
PROVIDERS: PCP Internal Medicine; Visit Provider Internal Medicine
DX: E03.9 Hypothyroidism, unspecified (principal)
CPT/HCPCS: 36415; 84443

== ENCOUNTER → 2024-09-22 | Outpatient (REF) | payer MEDICARE, MEDICAID, SELFPAY ==
[2024-09-22 09:06] LABS: Absolute Lymphocyte Count 2.49 X10^3/uL (0.83-4.51); Absolute Neutrophil Count 3.5 X10^3/uL (2.0-7.7); Basophil# 0.04 X10^3/uL; Basophil% 0.6 % (0-1); Eosinophil# 0.13 X10^3/uL; Hemoglobin 9.7 g/dL (12.0-15.0); Lymphocyte # 2.49 X10^3/ul (0.83-4.51); Lymphocyte % 37.7 % (19-41); Mean Corp Hgb Conc 31.3 g/dL (32-36); Mean Corpuscular Volume 89.3 fL (81-99); Mean Platelet Vol. 9.9 fl (6.2-12.0); Monocyte# 0.45 X10^3/uL; Monocyte% 6.8 % (0-10); NRBC Flagged by Analyzer 0 % (0-5); Neutrophil # 3.48 X10^3/uL (2.7-7.7); Neutrophil % 52.6 % (47-70); Platelet Count 316 K/mm3 (150-450); RBC Distribution Width CV 14.3 % (11.6-14.6); RBC Distribution Width SD 46.5 fl (35.1-43.9); Red Blood Count 3.47 M/mm3 (4.2-5.4); White Blood Count 6.6 K/mm3 (4.4-11.0)
[2024-09-22 10:11] LABS: Anion Gap 6 (5-15); BUN 28 mg/dL (7-18); BUN/Creat Ratio 19.9 RATIO (10-20); Calcium,Total 8.4 mg/dL (8.5-10.1); Chloride 106 mmol/L (98-107); Creatinine, Serum 1.41 mg/dL (0.55-1.02); EST Glomerular Filtration Rate 40 mL/min (>60); Est Glom Filt Rate - Afr Amer 49 mL/min (>60); Glucose 166 mg/dL (74-106); Potassium 4.1 mmol/L (3.5-5.1); Sodium Level 138 mmol/L (136-145)
== END ==
LOC: OLS.WHLEAS 05:00
PROVIDERS: PCP Internal Medicine; Visit Provider Internal Medicine
DX: E11.22 Type 2 diabetes mellitus with diabetic chronic kidney disease (principal); N18.9 Chronic kidney disease, unspecified
CPT/HCPCS: 36415; 80048; 85025

== ENCOUNTER → 2024-09-29 | Outpatient (REF) | payer MEDICARE, SELFPAY ==
[2024-09-29 07:43] LABS: Absolute Lymphocyte Count 2.13 X10^3/uL (0.83-4.51); Absolute Neutrophil Count 3.1 X10^3/uL (2.0-7.7); Basophil# 0.03 X10^3/uL; Basophil% 0.5 % (0-1); Eosinophils% 1.7 % (0-5); Hematocrit 30.8 % (37-47); Hemoglobin 9.8 g/dL (12.0-15.0); Lymphocyte # 2.13 X10^3/ul (0.83-4.51); Lymphocyte % 37.2 % (19-41); Mean Corp Hgb Conc 31.8 g/dL (32-36); Mean Corpuscular Hgb 28.5 pg (27.0-32.0); Mean Corpuscular Volume 89.5 fL (81-99); Mean Platelet Vol. 9.6 fl (6.2-12.0); Monocyte# 0.37 X10^3/uL; Monocyte% 6.5 % (0-10); NRBC Flagged by Analyzer 0 % (0-5); Neutrophil # 3.06 X10^3/uL (2.7-7.7); Neutrophil % 53.6 % (47-70); Platelet Count 318 K/mm3 (150-450); RBC Distribution Width CV 14.1 % (11.6-14.6); RBC Distribution Width SD 45.8 fl (35.1-43.9); Red Blood Count 3.44 M/mm3 (4.2-5.4); White Blood Count 5.7 K/mm3 (4.4-11.0)
[2024-09-29 07:53] LABS: Anion Gap 7 (5-15); BUN 22 mg/dL (7-18); BUN/Creat Ratio 18.3 RATIO (10-20); Calcium,Total 8.6 mg/dL (8.5-10.1); Chloride 105 mmol/L (98-107); EST Glomerular Filtration Rate 49 mL/min (>60); Est Glom Filt Rate - Afr Amer 59 mL/min (>60); Glucose 193 mg/dL (74-106); Potassium 3.8 mmol/L (3.5-5.1); Sodium Level 138 mmol/L (136-145)
== END ==
LOC: OLS.WHLEAS 05:00
PROVIDERS: PCP Internal Medicine; Visit Provider Internal Medicine
DX: E11.22 Type 2 diabetes mellitus with diabetic chronic kidney disease (principal); N18.9 Chronic kidney disease, unspecified
CPT/HCPCS: 36415; 80048; 85025

== ENCOUNTER → 2024-10-06 05:00 | Outpatient (REF) | payer MEDICARE, MEDICAID, SELFPAY ==
[2024-10-06 06:20] LABS: Absolute Lymphocyte Count 2.46 X10^3/uL (0.83-4.51); Absolute Neutrophil Count 2.8 X10^3/uL (2.0-7.7); Basophil# 0.03 X10^3/uL; Basophil% 0.5 % (0-1); Eosinophils% 3.4 % (0-5); Hematocrit 30.7 % (37-47); Hemoglobin 9.8 g/dL (12.0-15.0); Lymphocyte # 2.46 X10^3/ul (0.83-4.51); Lymphocyte % 41.8 % (19-41); Mean Corp Hgb Conc 31.9 g/dL (32-36); Mean Corpuscular Hgb 28.5 pg (27.0-32.0); Mean Corpuscular Volume 89.2 fL (81-99); Mean Platelet Vol. 9.4 fl (6.2-12.0); Monocyte# 0.42 X10^3/uL; Monocyte% 7.1 % (0-10); NRBC Flagged by Analyzer 0 % (0-5); Neutrophil # 2.76 X10^3/uL (2.7-7.7); Neutrophil % 46.9 % (47-70); Platelet Count 330 K/mm3 (150-450); RBC Distribution Width SD 45.4 fl (35.1-43.9); Red Blood Count 3.44 M/mm3 (4.2-5.4); White Blood Count 5.9 K/mm3 (4.4-11.0)
[2024-10-06 06:38] LABS: Anion Gap 6 (5-15); BUN 18 mg/dL (7-18); BUN/Creat Ratio 15.5 RATIO (10-20); Calcium,Total 8.6 mg/dL (8.5-10.1); Chloride 106 mmol/L (98-107); Creatinine, Serum 1.16 mg/dL (0.55-1.02); EST Glomerular Filtration Rate 50 mL/min (>60); Est Glom Filt Rate - Afr Amer 61 mL/min (>60); Glucose 204 mg/dL (74-106); Potassium 3.9 mmol/L (3.5-5.1); Sodium Level 138 mmol/L (136-145)
== END ==
LOC: OLS.WHLEAS 05:00
PROVIDERS: PCP Internal Medicine; Visit Provider Internal Medicine
DX: E11.22 Type 2 diabetes mellitus with diabetic chronic kidney disease (principal)
CPT/HCPCS: 36415; 80048; 85025

== ENCOUNTER → 2024-10-06 | Outpatient (CLI) | payer MEDICARE, MEDICAID, SELFPAY ==
--- NOTE | 2024-10-06 14:22 | BI_ITS ---
MAMMOGRAPHY - BILATERAL DIAGNOSTIC REASON FOR EXAM: Female, 59 years old. Right breast pain. PERTINENT HISTORY: Sister with breast cancer. Mother with breast cancer. Aunt with breast cancer. TECHNIQUE: Digital bilateral breast dilcia (3D mammographic acquisition) in the CC and MLO projections. 2-D mediolateral oblique (MLO) and craniocaudad (CC) views of both breasts were obtained. CAD: Full Field Digital Mammography with Computer Added Detection was performed. COMPARISON: Comparison is made with prior outside examination dated December 28, 2006. FINDINGS: Breast Composition: The breasts are almost entirely fatty. There are no dominant masses or suspicious calcifications. Stable small bilateral fat containing axillary lymph nodes. No other significant abnormalities are identified. There has been no significant change since the prior study. BI/DIAG MAMM W/CAD, BILAT IMPRESSION: Stable bilateral diagnostic mammogram. With the patient''s history of right breast pain, targeted sonographic correlation recommended. ASSESSMENT CATEGORY: BIRADS Category 0: Incomplete. Need additional imaging evaluation. A letter regarding these results will be sent to the patient by the facility within 30 days. Approximately 10% of breast cancers are not detected by mammography. A normal mammogram should not delay biopsy of a clinically suspicious abnormality. Electronically Signed: Khoi Al MD at 8:21 EST ,
--- NOTE | 2024-10-06 14:22 | US_ITS ---
STUDY: ULTRASOUND BREAST - RIGHT REASON FOR EXAM: Female, 59 years old. Right breast pain. TECHNIQUE: Axial and longitudinal images of the RIGHT breast were performed with a high resolution ultrasound transducer. # OF IMAGES: 32 COMPARISON: Comparison is made with prior mammogram dated October 06, 2024. FINDINGS: RIGHT Breast: The upper outer quadrant of the right breast was examined with ultrasound. Scattered fibroglandular tissue. No sonographic abnormality is seen. US/Breast Limited Unilateral IMPRESSION: No sonographic abnormality is seen. ASSESSMENT CATEGORY: BIRADS Category 1: Negative. A letter regarding these results will be sent to the patient by the facility within 30 days. Electronically Signed: Khoi Al MD at 10:05 EST ,
== END | disposition home or self-care (01) ==
LOC: OPBI 14:19
PROVIDERS: PCP Internal Medicine; Referring Provider Internal Medicine; Visit Provider Internal Medicine
DX: N64.4 Mastodynia (principal)
CPT/HCPCS: 76642; 77062; 77066; G0279

== ENCOUNTER → 2024-10-13 04:00 | Outpatient (REF) | payer MEDICARE, SELFPAY ==
[2024-10-13 08:13] LABS: Absolute Neutrophil Count 3.3 X10^3/uL (2.0-7.7); Basophil# 0.05 X10^3/uL; Basophil% 0.8 % (0-1); Eosinophil# 0.15 X10^3/uL; Eosinophils% 2.5 % (0-5); Hematocrit 34.2 % (37-47); Hemoglobin 10.9 g/dL (12.0-15.0); Lymphocyte % 35.3 % (19-41); Mean Corp Hgb Conc 31.9 g/dL (32-36); Mean Corpuscular Hgb 28.2 pg (27.0-32.0); Mean Corpuscular Volume 88.6 fL (81-99); Mean Platelet Vol. 9.7 fl (6.2-12.0); Monocyte# 0.37 X10^3/uL; Monocyte% 6.2 % (0-10); NRBC Flagged by Analyzer 0 % (0-5); Neutrophil # 3.25 X10^3/uL (2.7-7.7); Neutrophil % 54.7 % (47-70); Platelet Count 361 K/mm3 (150-450); RBC Distribution Width CV 13.8 % (11.6-14.6); RBC Distribution Width SD 44.6 fl (35.1-43.9); Red Blood Count 3.86 M/mm3 (4.2-5.4)
[2024-10-13 08:23] LABS: Anion Gap 5 (5-15); BUN 18 mg/dL (7-18); BUN/Creat Ratio 13.7 RATIO (10-20); Chloride 103 mmol/L (98-107); Creatinine, Serum 1.31 mg/dL (0.55-1.02); EST Glomerular Filtration Rate 44 mL/min (>60); Est Glom Filt Rate - Afr Amer 53 mL/min (>60); Glucose 234 mg/dL (74-106); Potassium 3.9 mmol/L (3.5-5.1); Sodium Level 136 mmol/L (136-145)
== END ==
LOC: OLS.WHLEAS 04:00
PROVIDERS: PCP Internal Medicine; Referring Provider Internal Medicine; Visit Provider Internal Medicine
DX: E11.22 Type 2 diabetes mellitus with diabetic chronic kidney disease (principal); N18.9 Chronic kidney disease, unspecified; E11.65 Type 2 diabetes mellitus with hyperglycemia; M62.561 Muscle wasting and atrophy, not elsewhere classified, right lower leg
CPT/HCPCS: 36415; 80048; 85025

== ENCOUNTER → 2024-10-20 05:00 | Outpatient (REF) | payer MEDICARE, MEDICAID, SELFPAY ==
[2024-10-20 07:38] LABS: Absolute Lymphocyte Count 2.38 X10^3/uL (0.83-4.51); Absolute Neutrophil Count 3.2 X10^3/uL (2.0-7.7); Basophil# 0.04 X10^3/uL; Basophil% 0.7 % (0-1); Eosinophil# 0.19 X10^3/uL; Eosinophils% 3.1 % (0-5); Hematocrit 30.6 % (37-47); Hemoglobin 9.6 g/dL (12.0-15.0); Lymphocyte # 2.38 X10^3/ul (0.83-4.51); Lymphocyte % 38.9 % (19-41); Mean Corp Hgb Conc 31.4 g/dL (32-36); Mean Corpuscular Hgb 27.8 pg (27.0-32.0); Mean Corpuscular Volume 88.7 fL (81-99); Mean Platelet Vol. 9.8 fl (6.2-12.0); Monocyte# 0.32 X10^3/uL; Monocyte% 5.2 % (0-10); NRBC Flagged by Analyzer 0 % (0-5); Neutrophil # 3.17 X10^3/uL (2.7-7.7); Neutrophil % 51.8 % (47-70); Platelet Count 325 K/mm3 (150-450); RBC Distribution Width CV 13.6 % (11.6-14.6); Red Blood Count 3.45 M/mm3 (4.2-5.4); White Blood Count 6.1 K/mm3 (4.4-11.0)
[2024-10-20 09:24] LABS: Anion Gap 6 (5-15); BUN 28 mg/dL (7-18); Calcium,Total 8.4 mg/dL (8.5-10.1); Chloride 102 mmol/L (98-107); Creatinine, Serum 1.27 mg/dL (0.55-1.02); EST Glomerular Filtration Rate 45 mL/min (>60); Est Glom Filt Rate - Afr Amer 55 mL/min (>60); Glucose 277 mg/dL (74-106); Potassium 3.9 mmol/L (3.5-5.1); Sodium Level 135 mmol/L (136-145)
== END ==
LOC: OLS.WHLEAS 05:00
PROVIDERS: PCP Internal Medicine; Visit Provider Internal Medicine
DX: E11.22 Type 2 diabetes mellitus with diabetic chronic kidney disease (principal)
CPT/HCPCS: 36415; 80048; 85025

== ENCOUNTER 2024-10-24 11:08 | Emergency (ER) | payer MEDICARE, SELFPAY ==
[2024-10-24 11:09] VITALS: BP 143/60; PULSE 85; RESP 16; TEMP 36.9; O2SAT 97; BMI 39.2
--- NOTE | 2024-10-24 12:03 | EX.ED.DYSGE1 ---
HPI History of Present Illness Chief Complaint: Abd Pain [facility] Medical History Anxiety and depression Diabetes mellitus, type 2 Pulmonary emboli Parathyroid disease History of left heart catheterization (LHC) (~05/21/22) CKD (chronic kidney disease) stage 3, GFR 30-59 ml/min Essential hypertension Orthostatic hypotension Hypothyroidism Chronic back pain Obesity (BMI 35.0-39.9 without comorbidity) Normochromic normocytic anemia Hyperlipidemia Former smoker Opiate abuse, continuous Intervertebral disc disorder with radiculopathy of lumbar region Carpal tunnel syndrome Kidney stones Thyroid disease Migraines Stomach ulcer HTN (hypertension) Home Medications ?Medication ?Instructions ?Recorded ?Last Taken ?Type rizatriptan 10 mg tablet 10 mg PO PRN Migraine Symptoms 12/27/17 04/03/24 History atorvastatin 40 mg tablet 40 mg PO QHS #30 tabs 05/21/22 06/19/24 Rx metoprolol succinate 25 mg 25 mg PO DAILY #30 tabs 05/21/22 06/18/24 Rx tablet,extended release 24 hr pantoprazole 40 mg tablet,delayed 40 mg PO DAILY 06/12/22 06/19/24 History release ranolazine 500 mg tablet,extended 500 mg PO BID #60 tabs 06/12/22 06/19/24 Rx release,12 hr midodrine 10 mg tablet 10 mg PO BID 09/09/22 06/20/24 History lorazepam 0.5 mg tablet 0.5 mg PO Q12H anxeity 01/29/23 12/31/23 History quetiapine 25 mg tablet 37.5 mg PO QHS 01/29/23 06/19/24 History acetaminophen 325 mg tablet 650 mg (2 x 325 mg) PO Q6H PRN PRN 11/24/23 06/16/24 Rx Pain 1-10 Or Fever >100.7 #0 tabs melatonin 3 mg tablet 3 mg PO QHS PRN PRN Insomnia #0 11/24/23 06/19/24 Rx tabs sennosides 8.6 mg-docusate sodium 2 tab PO BID PRN PRN Constipation 01/05/24 06/19/24 Rx 50 mg tablet (Stool #0 tabs Softener-Stimulant Laxative) loperamide 2 mg capsule 2 mg PO Q6H PRN loose stool 04/02/24 03/08/24 History (Anti-Diarrheal (loperamide)) nystatin 100,000 unit/gram topical 1 applic topical BID 04/02/24 Unknown History powder (Nyamyc) fluticasone propionate 50 2 spray intranasal DAILY 06/20/24 06/19/24 History mcg/actuation nasal spray,suspension (Aller-Scar) nitroglycerin 0.4 mg sublingual 0.4 mg sublingual Q5M PRN chest 06/20/24 Unknown History tablet pain nystatin 100,000 unit/mL oral 1 ml PO TID 7 days #21 mL 06/20/24 Unknown Rx suspension promethazine 25 mg tablet 25 mg PO Q6H PRN nausea and 06/20/24 Unknown History vomiting ondansetron 4 mg disintegrating 4 mg PO Q8H PRN PRN Nausea #10 tabs 07/08/24 Unknown Rx tablet apixaban 5 mg tablet (Eliquis) 5 mg PO BID 08/19/24 Unknown History bisacodyl 10 mg rectal suppository 10 mg KS DAILY PRN constipation 08/19/24 Unknown History buprenorphine 20 mcg/hour weekly 1 patch topical QWEEK 08/19/24 Unknown History transdermal patch citalopram 10 mg tablet 10 mg PO DAILY 08/19/24 Unknown History dulaglutide 3 mg/0.5 mL 3 mg subcut QWEEK 08/19/24 Unknown History subcutaneous pen injector (Trulicity) fenofibrate 160 mg tablet 160 mg PO DAILY 08/19/24 Unknown History insulin glargine-yfgn 100 unit/mL 48 unit subcut BID 08/19/24 Unknown History (3 mL) subcutaneous pen levothyroxine 125 mcg tablet 125 mcg PO DAILY 08/19/24 Unknown History magnesium citrate (Citrate of 150 ml PO PRN PRN constipation 08/19/24 Unknown History Magnesia oral) magnesium hydroxide 400 mg/5 mL 30 ml PO DAILY PRN constipation 08/19/24 Unknown History oral suspension (Dulcolax (magnesium hydroxide)) potassium chloride 20 mEq 20 meq PO DAILY 08/19/24 Unknown History tablet,extended release(part/cryst) ondansetron 4 mg disintegrating 4 mg PO Q8H PRN PRN Nausea #10 tabs 10/24/24 Unknown Rx tablet Allergy/AdvReac Type Severity Reaction Status Date / Time celecoxib (From Celebrex) Allergy Itching Verified 10/24/24 11:11 ciprofloxacin (From Cipro) Allergy Swelling Verified 10/24/24 11:11 ciprofloxacin HCl (From Allergy Swelling Verified 10/24/24 11:11 Cipro) codeine Allergy Hives Verified 10/24/24 11:11 ibuprofen Allergy Hives Verified 10/24/24 11:11 naproxen Allergy Hives Verified 10/24/24 11:11 Penicillins Allergy Hives Verified 10/24/24 11:11 tramadol HCl (From Ultram) Allergy Hives Verified 10/24/24 11:11 ketorolac (From Toradol) AdvReac Swelling Verified 10/24/24 11:11 Family History Mother Cancer CVA (cerebral vascular accident) Hypertension Heart disease Myocardial infarction Diabetes Father Asthma Surgical History History of cholecystectomy S/P trigger finger release H/O: hysterectomy Hx of section Social History household members: other details: currently living in a NH for therapy for chronic back pain housing: detention Smoking Status: Former smoker Tobacco: How many years used: 46 how long ago did patient quit smoking: Quit 09/2021, smoked 1 ppd since teen until quit. alcohol intake: never substance use type: other details: History of chronic opiate use. Denies abuse. EXAM Physical Exam Const Vital Signs: 10/24/24 11:09 10/24/24 13:09 Temperature 98.4 F Temperature Source Oral Pulse Rate 85 79 Respiratory Rate 16 16 Blood Pressure 143/60 H 139/68 H Blood Pressure Mean 87 91 Pulse Ox 97 96 Oxygen Delivery Method Room Air Room Air MDM MDM MDM Narrative Medical decision making narrative: HISTORY OF PRESENT ILLNESS: 59-year-old female presents with right lower quadrant abdominal pain and nausea since yesterday. States it feels like my hernia again. Notes nausea but no vomiting. Last bowel movement yesterday. No melena hematochezia. Denies urinary complaints. History of abdominal surgery noted. REVIEW OF SYSTEMS: Pertinent positives: Abdominal pain, nausea Pertinent negatives: Urinary complaints, fever, dysuria PHYSICAL EXAM: Nursing triage notes reviewed, Vital signs reviewed Constitutional: please see mdm HENT: MMM Eyes: Pupils equal round and reactive to light, Extraocular muscles intact Neck: No stridor, no JVD, full neck ROM Lungs: Clear to auscultation, No wheezing or rales. No increased work of breathing, no conversational dyspnea, no accessory muscle use, no nasal flaring. No respiratory distress noted Heart: Regular rate and rhythm, No murmurs, No rubs and No gallops, 2+ distal pulses (radial, femoral, posterior tibial) in all extremities Abdomen: Soft, diffuse tenderness, mild distention, no obvious skin changes or incarcerated strangulated hernia noted. No rigidity, rebound or guarding, no obvious peritoneal signs, no palpable pulsatile abdominal masses, no auscultated abdominal bruit : No CVAT Extremities: No edema Neuro: No new focal neurological deficits, cranial nerves II through XII intact, 5/5 strength in all present extremities. Intact sensation to light touch in all present extremities, 2+ reflexes bilateral patella tendons. Skin: No rash or lesions noted MEDICAL DECISION MAKING: Chief Complaint: Abdominal pain External records reviewed: Reviewed CT scan from June 2024 which showed small fatty umbilical hernia Factors affecting care: Hypertension, hyperlipidemia, type 2 diabetes, hypothyroidism history of CKD, Social determinants of health: none History obtained from others: none Consults: None [facility] Narrative: The patient was initially hemodynamically stable, afebrile and nontoxic-appearing. Exam without obvious peritoneal signs. She did not have tenderness around her umbilicus. There is no obvious overlying skin changes or signs of incarcerated hernia I considered the following differential diagnosis: AAA, small bowel obstruction, abdominal perforation, appendicitis, pancreatitis, hepatobiliary pathology (acute cholecystitis), mesenteric ischemia, pathology (ie nephrolithiasis, pyelonephritis). I obtained a broad lab and imaging workup to further elucidate the etiology of the patient's complaints. I gave 4 mg of IV Zofran and 4 mg of IV morphine for initial symptom control. ALL IMAGES (IF OBTAINED) HAVE BEEN PERSONALLY REVIEWED AND INTERPRETED BY MYSELF. CBC with no leukocytosis to suggest systemic inflammation, noted mild anemia (improved from baseline), no thrombocytopenia BMP with mild hyponatremia (135), no other significant electrolyte abnormalities, no signs of endorgan hypoperfusion with a normal anion gap, no signs of metabolic acidosis and normal bicarb, no XIOMY Lactate is wnl indicating no end-organ hypoperfusion and/or hypoxia. Makes incarcerated hernia less likely LFTs show no evidence of hepatobiliary pathology. Urinalysis shows no evidence of urinary inflammation suggestive of UTI CT scan abdomen pelvis is negative for acute intra-abdominal or surgical pathology Repeat abdominal exam remained benign. Vital signs remained stable. Patient is appropriate discharge home with close outpatient GI follow-up and prescription for Zofran The patient and/or family, caregivers express understanding. The patient and/or family, caregivers agrees with the plan. Shared decision making: I will have a discussion with the patient and or visitors regarding risk/benefits of further testing or admission. They will be made aware of of the risk/benefits inherent in this decision they will be given the opportunity to voice understanding. Total critical care time today provided was at least 0 minutes. This excludes separately billable procedures. Critical care time (if documented) is secondary to the patient having high probability of clinically significant/life threatening deterioration in the patient's condition which required my urgent intervention. Impression: 1. Acute abdominal pain 2. Nausea 3. History of umbilical hernia Dispo: Discharge home This note was generated with [employer] dictation software. It may contain incorrect words, spelling, and punctuation that were not noted in review of the chart prior to signing. Lab Data Labs: Laboratory Results - last 24 hr 10/24/24 10/24/24 10/24/24 11:20 12:14 13:47 WBC 6.7 RBC 3.78 L Hgb 10.4 L Hct 33.6 L MCV 88.9 MCH 27.5 MCHC 31.0 L RDW Std Deviation 44.1 H RDW Coeff of Anisa 13.6 Plt Count 352 MPV 9.7 Immature Gran % (Auto) 0.900 Neut % (Auto) 59.8 Lymph % (Auto) 30.7 [place] % (Auto) 5.7 Eos % (Auto) 2.2 Baso % (Auto) 0.7 Absolute Neuts (auto) 4.0 Absolute Lymphs (auto) 2.05 Nucleated RBC % 0 Sodium 135 L Potassium 4.1 Chloride 100 Carbon Dioxide 26.0 Anion Gap 8 BUN 27 H Creatinine 1.28 H Estim Creat Clear Calc 46.41 Est GFR (MDRD) Af Amer 55 L Est GFR (MDRD) Non-Af 45 L BUN/Creatinine Ratio 21.1 H Glucose 328 H Lactic Acid 1.7 Calcium 8.8 Total Bilirubin 0.30 AST 32 ALT 25 Alkaline Phosphatase 49 Total Protein 6.8 Albumin 3.0 L Globulin 3.8 Albumin/Globulin Ratio 0.8 L Urine Color Yellow Urine Clarity Clear Urine pH 6.0 Ur Specific [place] 1.015 Urine Protein 15 H Urine Glucose (UA) 250 H Urine Ketones Negative Urine Occult Blood Negative Urine Nitrite Negative Urine Bilirubin Negative Urine Urobilinogen Normal Ur Leukocyte Esterase Negative Urine RBC 0 SEEN Urine WBC 0 SEEN Ur Squamous Epith Cells 0-5 SEEN Urine Bacteria 0 SEEN Urine Mucus 0 SEEN Radiography Diagnostic Testing: Clinical Impression(s) from Imaging Studies Abdomen/Pelvis CT 10/24/24 12:05 IMPRESSION: 1. Normal visualized stomach. Normal small intestine. Normal colon. The appendix is visualized and appears normal. Moderate stool retention throughout the colon. No bowel dilatation or free air or abscess. No inflammatory stranding is present. Electronically Signed: Guru Byrne MD at 13:47 EST Reading Location ID and State: [address] [place] [address] , Service support , Discharge Plan Triage Chief Complaint: Abd Pain ED Provider: Salvador Campbell Dx/Rx/DC Orders Clinical Impression: Abdominal pain Instructions: ED Abdominal Pain Unkn Cause Fem Prescriptions: New ondansetron 4 mg tablet,disintegrating 4 mg PO Q8H PRN PRN (Reason: Nausea) Qty: 10 0RF No Action pantoprazole 40 mg tablet,delayed release (DR/EC) 40 mg PO DAILY ranolazine 500 mg tablet extended release 12 hr 500 mg PO BID Qty: 60 11RF midodrine 10 mg tablet 10 mg PO BID rizatriptan 10 tablet 10 mg PO PRN Patient Comments: metoprolol succinate 25 mg Tablet Extended Release 24 Hr 25 mg PO DAILY Qty: 30 2RF atorvastatin 40 mg tablet 40 mg PO QHS Qty: 30 2RF quetiapine 25 mg tablet 37.5 mg PO QHS lorazepam 0.5 mg tablet 0.5 mg PO Q12H acetaminophen 325 mg Tablet 650 mg PO Q6H PRN PRN (Reason: Pain 1-10 Or Fever >100.7) Qty: 0 0RF melatonin 3 mg Tablet 3 mg PO QHS PRN PRN (Reason: Insomnia) Qty: 0 0RF nystatin [Nyamyc] 100,000 unit/gram powder 1 applic topical BID loperamide [Anti-Diarrheal (loperamide)] 2 mg capsule 2 mg PO Q6H PRN (Reason: loose stool) magnesium hydroxide [Dulcolax (magnesium hydroxide)] 400 mg/5 mL suspension 30 ml PO DAILY PRN (Reason: constipation) magnesium citrate [Citrate of Magnesia] Solution 150 ml PO PRN PRN (Reason: constipation) bisacodyl 10 mg suppository 10 mg KS DAILY PRN (Reason: constipation) Trulicity 3 mg/0.5 mL pen injector 3 mg subcut QWEEK citalopram 10 mg tablet 10 mg PO DAILY potassium chloride 20 mEq Tablet,Er Particles/Crystals 20 meq PO DAILY levothyroxine 125 mcg tablet 125 mcg PO DAILY fenofibrate 160 mg tablet 160 mg PO DAILY buprenorphine 20 mcg/hour patch weekly 1 patch topical QWEEK Eliquis 5 mg Tablet 5 mg PO BID insulin glargine-yfgn 100 unit/mL (3 mL) Insulin Pen 48 unit subcut BID sennosides-docusate sodium [Stool Softener-Stimulant Laxat] 8.6-50 mg Tablet 2 tab PO BID PRN PRN (Reason: Constipation) Qty: 0 0RF nitroglycerin 0.4 mg tablet, sublingual 0.4 mg sublingual Q5M PRN (Reason: chest pain) Rx Instructions: do not exceed 3 doses per episode fluticasone propionate [Aller-Scar] 50 mcg/actuation spray,suspension 2 spray intranasal DAILY Rx Instructions: administer into each nostril promethazine 25 mg tablet 25 mg PO Q6H PRN (Reason: nausea and vomiting) ondansetron 4 mg tablet,disintegrating 4 mg PO Q8H PRN PRN (Reason: Nausea) Qty: 10 0RF nystatin 100,000 unit/mL suspension 1 ml PO TID 7 Days Qty: 21 1RF Rx Instructions: swish and swallow Primary Care Provider: Lizet Linares Referrals: Friend,Napoleon, DO [Med Staff - Active Staff] - Activity Restrictions/Additional Instructions: Thank you for trusting us with your care today! Please take Tylenol (2 pills, 650 mg), ibuprofen (2 pills, 400 mg) every 6 hours as needed for pain and fever control. Please take Zofran as needed for nausea vomit control Your CT scan did show signs of constipation. Please begin taking a bowel regimen at home which includes increasing fiber by eating more fresh fruits and vegetables. Also includes taking cilm-txk-osycryv medicine such as Colace, MiraLAX and senna until desired consistency of stool is reached. Please return to the emergency department if your symptoms change or worsen. Please follow with your primary care physician for further outpatient evaluation and management. Print Language: Ethiopian Disposition Disposition: Home, Self Care
--- NOTE | 2024-10-24 12:05 | CT_ITS ---
STUDY: CT ABDOMEN AND PELVIS WITH CONTRAST REASON FOR EXAM: Female, 59 years old. Right lower quadrant pain, nausea, diabetic, hysterectomy, cholecystectomy. Abdominal pain, history of umbilical hernia RADIATION DOSAGE (If Supplied By Facility): CTDIvol = ( 16.56 ) mGy, DLP = ( 1147.25 ) mGycm TECHNIQUE: Transaxial images were obtained from the dome of the diaphragm to the symphysis pubis without oral contrast. ml of 100mL Isovue-370 contrast was administered. Sagittal and coronal images were reconstructed. Individualized dose optimization techniques were used for this CT. COMPARISON: CT of abdomen and pelvis dated January 06, 2023 FINDINGS: The visualized lung bases are unremarkable. The visualized portions of the heart are within normal limits. Redemonstration of coarse calcified nodule in the medial dome of the right lobe of the liver which is benign and does not requiring additional imaging. Normal remaining aspects of the liver. Prior cholecystectomy. Enlarged Reidel''s lobe. There is a benign calcified granuloma of the spleen. Normal pancreas. Normal bilateral adrenal glands. There is mild cortical atrophy of the right kidney, consistent with chronic medical renal disease. There is mild cortical atrophy of the left kidney, consistent with chronic medical renal disease. Normal visualized stomach. Normal small intestine. Normal colon. The appendix is visualized and appears normal. Moderate stool retention throughout the colon. No bowel dilatation or free air or abscess. No inflammatory stranding is present. There is diffuse atherosclerotic calcification of the abdominal aorta, without a demonstrated aneurysm. Normal inferior vena cava. Normal retroperitoneum. Normal urinary bladder. Prior supracervical hysterectomy. There is a small umbilical hernia containing fat. There are diffuse degenerative changes of the visualized lumbar spine. CT/Abdomen/Pelvis W IV Cont ONLY IMPRESSION: 1. Normal visualized stomach. Normal small intestine. Normal colon. The appendix is visualized and appears normal. Moderate stool retention throughout the colon. No bowel dilatation or free air or abscess. No inflammatory stranding is present. Electronically Signed: Guru Byrne MD at 13:47 EST ,
[2024-10-24 12:21] LABS: Absolute Lymphocyte Count 2.05 X10^3/uL (0.83-4.51); Basophil# 0.05 X10^3/uL; Basophil% 0.7 % (0-1); Eosinophil# 0.15 X10^3/uL; Eosinophils% 2.2 % (0-5); Hematocrit 33.6 % (37-47); Hemoglobin 10.4 g/dL (12.0-15.0); Lymphocyte # 2.05 X10^3/ul (0.83-4.51); Lymphocyte % 30.7 % (19-41); Mean Corpuscular Hgb 27.5 pg (27.0-32.0); Mean Corpuscular Volume 88.9 fL (81-99); Mean Platelet Vol. 9.7 fl (6.2-12.0); Monocyte# 0.38 X10^3/uL; Monocyte% 5.7 % (0-10); NRBC Flagged by Analyzer 0 % (0-5); Neutrophil # 3.99 X10^3/uL (2.7-7.7); Neutrophil % 59.8 % (47-70); Platelet Count 352 K/mm3 (150-450); RBC Distribution Width CV 13.6 % (11.6-14.6); RBC Distribution Width SD 44.1 fl (35.1-43.9); Red Blood Count 3.78 M/mm3 (4.2-5.4); White Blood Count 6.7 K/mm3 (4.4-11.0)
[2024-10-24] MEDS: Ondansetron 4 MG/2 ML Vial IV (12:22)
[2024-10-24] MEDS: Morphine 4 MG/ML Syringe IV (12:22)
[2024-10-24 12:44] LABS: ALB/GLOB Ratio 0.8 RATIO (0.9-2.4); AST(SGOT) 32 U/L (15-37); Alanine Aminotransfer ALT/SGPT 25 U/L (13-56); Alkaline Phosphatase 49 U/L (45-117); Anion Gap 8 (5-15); BUN 27 mg/dL (7-18); BUN/Creat Ratio 21.1 RATIO (10-20); Calcium,Total 8.8 mg/dL (8.5-10.1); Chloride 100 mmol/L (98-107); Creatinine, Serum 1.28 mg/dL (0.55-1.02); EST Glomerular Filtration Rate 45 mL/min (>60); Est Glom Filt Rate - Afr Amer 55 mL/min (>60); Estimated Creatinine Clearance 46.41 ml/min; Globulin 3.8 g/dL (2.2-4.2); Glucose 328 mg/dL (74-106); Potassium 4.1 mmol/L (3.5-5.1); Protein, Total 6.8 g/dL (6.4-8.2); Sodium Level 135 mmol/L (136-145)
[2024-10-24 12:59] LABS: Lactic Acid 1.7 mmol/L (0.4-1.9)
[2024-10-24 13:09] VITALS: BP 139/68; PULSE 79; RESP 16; O2SAT 96
[2024-10-24 13:50] LABS: Bacteria 0 SEEN /hpf (None Seen); Mucous, Urine 0 SEEN /hpf (<or=2+); White Blood Cells 0 SEEN /hpf (0-5)
[2024-10-24 13:52] LABS: Color, Urine Yellow (Yellow); Glucose, Dipstick 250 mg/dl (Normal); Ketone-Dipstick Negative (Negative); Leukocyte Esterase-Dipstick Negative /ul (Negative); Nitrite-Dipstick Negative (Negative); Occult Blood-Urine Negative /ul (Negative); Protein-Dipstick 15 mg/dl (Negative); Specific Gravity, Urine 1.015 (1.002-1.030); Urine Bilirubin Dipstick Negative (Negative); Urine Clarity Clear (Clear); Urine Urobilinogen Normal (Normal)
[2024-10-24 13:59] LABS: Red Blood Cells-Urine 0 SEEN /hpf (0-5); Squamous Epithelial Cells - UA 0-5 SEEN /hpf (5-10)
--- NOTE | 2024-10-24 14:37 | ED.RN ---
Update [facility], all questions answered.
[2024-10-24 15:00] VITALS: BP 139/69; PULSE 80; RESP 16; O2SAT 95
[2024-10-24 17:00] VITALS: BP 143/60; PULSE 79; RESP 16; O2SAT 95
[2024-10-24 17:21] VITALS: BP 139/63; PULSE 78; RESP 16; TEMP 36.5; O2SAT 96
== END 2024-10-24 17:21 | disposition home or self-care (01) ==
PROVIDERS: Emergency Provider Emergency Medicine; PCP Internal Medicine; Visit Provider Emergency Medicine
DX: R10.9 Unspecified abdominal pain (principal); E11.22 Type 2 diabetes mellitus with diabetic chronic kidney disease; N18.9 Chronic kidney disease, unspecified; I12.9 Hypertensive chronic kidney disease with stage 1 through stage 4 chronic kidney disease, or unspecified chronic kidney disease; M54.9 Dorsalgia, unspecified; Z90.710 Acquired absence of both cervix and uterus; Z87.891 Personal history of nicotine dependence; E87.1 Hypo-osmolality and hyponatremia; E78.5 Hyperlipidemia, unspecified; R11.0 Nausea; E03.9 Hypothyroidism, unspecified; Z90.49 Acquired absence of other specified parts of digestive tract; Z86.711 Personal history of pulmonary embolism
CPT/HCPCS: 74177; 80053; 81001; 83605; 85025; 96374; 96375; 99285; Q9967; A4216; J2405

== ENCOUNTER → 2024-10-27 05:00 | Outpatient (REF) | payer MEDICARE, SELFPAY ==
[2024-10-27 09:26] LABS: Anion Gap 8 (5-15); BUN 25 mg/dL (7-18); BUN/Creat Ratio 17.7 RATIO (10-20); Calcium,Total 8.3 mg/dL (8.5-10.1); Chloride 100 mmol/L (98-107); Creatinine, Serum 1.41 mg/dL (0.55-1.02); EST Glomerular Filtration Rate 40 mL/min (>60); Est Glom Filt Rate - Afr Amer 49 mL/min (>60); Glucose 425 mg/dL (74-106); Sodium Level 132 mmol/L (136-145)
[2024-10-27 09:32] LABS: Absolute Lymphocyte Count 1.77 X10^3/uL (0.83-4.51); Absolute Neutrophil Count 3.1 X10^3/uL (2.0-7.7); Basophil# 0.02 X10^3/uL; Basophil% 0.4 % (0-1); Eosinophil# 0.13 X10^3/uL; Eosinophils% 2.4 % (0-5); Hematocrit 28.7 % (37-47); Hemoglobin 9.2 g/dL (12.0-15.0); Lymphocyte # 1.77 X10^3/ul (0.83-4.51); Lymphocyte % 32.8 % (19-41); Mean Corp Hgb Conc 32.1 g/dL (32-36); Mean Corpuscular Hgb 28.1 pg (27.0-32.0); Mean Corpuscular Volume 87.8 fL (81-99); Mean Platelet Vol. 10.1 fl (6.2-12.0); Monocyte# 0.32 X10^3/uL; Monocyte% 5.9 % (0-10); NRBC Flagged by Analyzer 0 % (0-5); Neutrophil # 3.14 X10^3/uL (2.7-7.7); Neutrophil % 58.1 % (47-70); Platelet Count 292 K/mm3 (150-450); RBC Distribution Width CV 13.9 % (11.6-14.6); RBC Distribution Width SD 44.4 fl (35.1-43.9); Red Blood Count 3.27 M/mm3 (4.2-5.4); White Blood Count 5.4 K/mm3 (4.4-11.0)
== END ==
LOC: OLS.WHLEAS 05:00
PROVIDERS: PCP Internal Medicine; Visit Provider Internal Medicine
DX: E11.22 Type 2 diabetes mellitus with diabetic chronic kidney disease (principal)
CPT/HCPCS: 36415; 80048; 85025

== ENCOUNTER → 2024-11-01 | Outpatient (REF) | payer MEDICARE, SELFPAY | LOC: OLS.WHLEAS 05:07 | PROVIDERS: PCP Internal Medicine; Visit Provider Internal Medicine | DX: E03.9 Hypothyroidism, unspecified (principal) | CPT/HCPCS: 36415; 84443 ==

== ENCOUNTER → 2024-11-03 05:04 | Outpatient (REF) | payer MEDICARE, SELFPAY ==
[2024-11-03 08:05] LABS: Absolute Lymphocyte Count 1.95 X10^3/uL (0.83-4.51); Basophil# 0.03 X10^3/uL; Basophil% 0.5 % (0-1); Eosinophil# 0.13 X10^3/uL; Eosinophils% 2.4 % (0-5); Hemoglobin 10.2 g/dL (12.0-15.0); Lymphocyte # 1.95 X10^3/ul (0.83-4.51); Lymphocyte % 35.6 % (19-41); Mean Corp Hgb Conc 30.9 g/dL (32-36); Mean Corpuscular Hgb 27.6 pg (27.0-32.0); Mean Corpuscular Volume 89.2 fL (81-99); Mean Platelet Vol. 9.6 fl (6.2-12.0); Monocyte# 0.35 X10^3/uL; Monocyte% 6.4 % (0-10); NRBC Flagged by Analyzer 0 % (0-5); Neutrophil # 2.98 X10^3/uL (2.7-7.7); Neutrophil % 54.6 % (47-70); Platelet Count 331 K/mm3 (150-450); RBC Distribution Width CV 13.9 % (11.6-14.6); White Blood Count 5.5 K/mm3 (4.4-11.0)
[2024-11-03 08:12] LABS: Anion Gap 6 (5-15); BUN 27 mg/dL (7-18); BUN/Creat Ratio 21.3 RATIO (10-20); Calcium,Total 9.1 mg/dL (8.5-10.1); Chloride 100 mmol/L (98-107); Creatinine, Serum 1.27 mg/dL (0.55-1.02); EST Glomerular Filtration Rate 45 mL/min (>60); Est Glom Filt Rate - Afr Amer 55 mL/min (>60); Glucose 352 mg/dL (74-106); Potassium 4.1 mmol/L (3.5-5.1); Sodium Level 133 mmol/L (136-145)
== END ==
LOC: OLS.WHLEAS 05:04
PROVIDERS: PCP Internal Medicine; Visit Provider Internal Medicine
DX: E11.22 Type 2 diabetes mellitus with diabetic chronic kidney disease (principal); N18.9 Chronic kidney disease, unspecified; E11.65 Type 2 diabetes mellitus with hyperglycemia; N17.9 Acute kidney failure, unspecified; N30.00 Acute cystitis without hematuria; M62.561 Muscle wasting and atrophy, not elsewhere classified, right lower leg
CPT/HCPCS: 36415; 80048; 85025

== ENCOUNTER → 2024-11-10 | Outpatient (REF) | payer MEDICARE, SELFPAY ==
[2024-11-10 08:40] LABS: Absolute Lymphocyte Count 2.01 X10^3/uL (0.83-4.51); Absolute Neutrophil Count 4.5 X10^3/uL (2.0-7.7); Basophil# 0.05 X10^3/uL; Basophil% 0.7 % (0-1); Eosinophil# 0.08 X10^3/uL; Eosinophils% 1.1 % (0-5); Hematocrit 32.9 % (37-47); Hemoglobin 10.4 g/dL (12.0-15.0); Lymphocyte # 2.01 X10^3/ul (0.83-4.51); Lymphocyte % 28.2 % (19-41); Mean Corp Hgb Conc 31.6 g/dL (32-36); Mean Corpuscular Hgb 28.1 pg (27.0-32.0); Mean Corpuscular Volume 88.9 fL (81-99); Monocyte# 0.43 X10^3/uL; NRBC Flagged by Analyzer 0 % (0-5); Neutrophil # 4.53 X10^3/uL (2.7-7.7); Neutrophil % 63.4 % (47-70); Platelet Count 334 K/mm3 (150-450); RBC Distribution Width CV 13.8 % (11.6-14.6); RBC Distribution Width SD 45.1 fl (35.1-43.9); White Blood Count 7.1 K/mm3 (4.4-11.0)
[2024-11-10 09:00] LABS: Anion Gap 7 (5-15); BUN 23 mg/dL (7-18); BUN/Creat Ratio 16.4 RATIO (10-20); Calcium,Total 9.1 mg/dL (8.5-10.1); Chloride 100 mmol/L (98-107); EST Glomerular Filtration Rate 41 mL/min (>60); Est Glom Filt Rate - Afr Amer 49 mL/min (>60); Glucose 342 mg/dL (74-106); Potassium 4.4 mmol/L (3.5-5.1); Sodium Level 134 mmol/L (136-145)
== END ==
LOC: OLS.WHLEAS 05:00
PROVIDERS: PCP Internal Medicine; Visit Provider Internal Medicine
DX: E11.22 Type 2 diabetes mellitus with diabetic chronic kidney disease (principal); E11.65 Type 2 diabetes mellitus with hyperglycemia; N18.9 Chronic kidney disease, unspecified
CPT/HCPCS: 36415; 80048; 85025

== ENCOUNTER → 2024-11-17 | Outpatient (REF) | payer MEDICARE, SELFPAY ==
[2024-11-17 07:48] LABS: Absolute Lymphocyte Count 2.18 X10^3/uL (0.83-4.51); Absolute Neutrophil Count 3.2 X10^3/uL (2.0-7.7); Basophil# 0.04 X10^3/uL; Basophil% 0.7 % (0-1); Eosinophil# 0.09 X10^3/uL; Eosinophils% 1.5 % (0-5); Hematocrit 32.3 % (37-47); Hemoglobin 10.1 g/dL (12.0-15.0); Lymphocyte # 2.18 X10^3/ul (0.83-4.51); Lymphocyte % 36.9 % (19-41); Mean Corp Hgb Conc 31.3 g/dL (32-36); Mean Corpuscular Hgb 27.4 pg (27.0-32.0); Mean Corpuscular Volume 87.5 fL (81-99); Mean Platelet Vol. 9.4 fl (6.2-12.0); Monocyte# 0.34 X10^3/uL; Monocyte% 5.8 % (0-10); NRBC Flagged by Analyzer 0 % (0-5); Neutrophil # 3.24 X10^3/uL (2.7-7.7); Neutrophil % 54.8 % (47-70); Platelet Count 309 K/mm3 (150-450); RBC Distribution Width CV 13.8 % (11.6-14.6); RBC Distribution Width SD 44.4 fl (35.1-43.9); Red Blood Count 3.69 M/mm3 (4.2-5.4); White Blood Count 5.9 K/mm3 (4.4-11.0)
[2024-11-17 08:29] LABS: Anion Gap 6 (5-15); BUN 31 mg/dL (7-18); BUN/Creat Ratio 22.6 RATIO (10-20); Calcium,Total 8.6 mg/dL (8.5-10.1); Chloride 103 mmol/L (98-107); Creatinine, Serum 1.37 mg/dL (0.55-1.02); EST Glomerular Filtration Rate 42 mL/min (>60); Est Glom Filt Rate - Afr Amer 50 mL/min (>60); Glucose 304 mg/dL (74-106); Potassium 4.3 mmol/L (3.5-5.1); Sodium Level 135 mmol/L (136-145)
== END ==
LOC: OLS.WHLEAS 05:00
PROVIDERS: PCP Internal Medicine; Visit Provider Internal Medicine
DX: E11.22 Type 2 diabetes mellitus with diabetic chronic kidney disease (principal); E11.65 Type 2 diabetes mellitus with hyperglycemia; N18.9 Chronic kidney disease, unspecified
CPT/HCPCS: 36415; 80048; 85025

== ENCOUNTER → 2024-11-30 05:00 | Outpatient (REF) | payer MEDICARE, MEDICAID, SELFPAY ==
[2024-11-30 09:56] LABS: Cholesterol 91 mg/dL (200); High Density Lipoprotein 29 mg/dL; Triglycerides 191 mg/dL; Very Low Density Lipoprotein 38 mg/dL (5-40)
== END ==
LOC: OLS.WHLEAS 05:00
PROVIDERS: PCP Internal Medicine; Visit Provider Internal Medicine
DX: E11.22 Type 2 diabetes mellitus with diabetic chronic kidney disease (principal); N18.31 Chronic kidney disease, stage 3a; E11.42 Type 2 diabetes mellitus with diabetic polyneuropathy; I10 Essential (primary) hypertension; E03.9 Hypothyroidism, unspecified
CPT/HCPCS: 36415; 80061; 84443

== ENCOUNTER → 2024-12-07 20:00 | Outpatient (REF) | payer MEDICARE, MEDICAID, SELFPAY ==
[2024-12-08 11:55] LABS: Microalbumin,Random Urine 9.2 mg/L (NO RANGE EST.)
== END ==
LOC: OLS.WHLEAS 20:00
PROVIDERS: PCP Internal Medicine; Visit Provider Internal Medicine
DX: N18.31 Chronic kidney disease, stage 3a (principal)
CPT/HCPCS: 82043; 82570

== ENCOUNTER → 2025-01-05 | Outpatient (REF) | payer MEDICARE, SELFPAY ==
[2025-01-05 09:41] LABS: Hemoglobin A1c 10.2 % (<=5.6)
== END ==
LOC: OLS.WHLEAS 05:00
PROVIDERS: PCP Internal Medicine; Visit Provider Internal Medicine
DX: E11.42 Type 2 diabetes mellitus with diabetic polyneuropathy (principal); E11.22 Type 2 diabetes mellitus with diabetic chronic kidney disease; N18.31 Chronic kidney disease, stage 3a; I12.9 Hypertensive chronic kidney disease with stage 1 through stage 4 chronic kidney disease, or unspecified chronic kidney disease; E03.9 Hypothyroidism, unspecified
CPT/HCPCS: 36415; 83036

== ENCOUNTER 2025-01-22 10:39 | Emergency (ER) | payer MEDICARE, MEDICAID, SELFPAY ==
[2025-01-22 10:42] VITALS: BP 127/62; PULSE 78; RESP 18; TEMP 36.7; O2SAT 96; BMI 39.3
--- NOTE | 2025-01-22 10:47 | EKG12_ITS ---
Test Reason : Blood Pressure : */* mmHG Vent. Rate : 78 BPM Atrial Rate : 78 BPM P-R Int : 182 ms QRS Dur : 74 ms QT Int : 382 ms P-R-T Axes : 29 -30 10 degrees QTcB Int : 435 ms Normal sinus rhythm Left axis deviation Inferior infarct , age undetermined Anteroseptal infarct , age undetermined Abnormal ECG Confirmed by OSCAR SANTANA, MIRACLE ([id number]), copy editor MILE MCMAHAN ([id number]) on 01/23/2025 8:36:15 AM Referred By: Confirmed By: MIRACLE MOORE MD
--- NOTE | 2025-01-22 10:55 | RAD_ITS ---
PROCEDURE: CHEST 1 VIEW (PORTABLE) 01/22/2025 REASON FOR EXAM: CHEST PAIN TECHNIQUE: Portable chest radiograph was obtained. COMPARISON: Comparison is made with prior study dated August 19, 2024. FINDINGS: Hardware: EKG electrodes are seen. Heart: The heart size is normal. Lungs: Stable elevation of the right hemidiaphragm. The lungs are clear. Bones: Degenerative changes are identified within the thoracic spine. Other: Calcification of the aortic arch. RAD/Chest 1 View (Portable) IMPRESSION: No Acute Findings. Reading Location: [place] [id number]
[2025-01-22 10:57] LABS: Absolute Lymphocyte Count 2.95 X10^3/uL (0.83-4.51); Absolute Neutrophil Count 4.6 X10^3/uL (2.0-7.7); Basophil# 0.05 X10^3/uL; Basophil% 0.6 % (0-1); Eosinophil# 0.08 X10^3/uL; Hemoglobin 12.1 g/dL (12.0-15.0); Lymphocyte # 2.95 X10^3/ul (0.83-4.51); Lymphocyte % 35.8 % (19-41); Mean Corp Hgb Conc 32.7 g/dL (32-36); Mean Corpuscular Hgb 28.6 pg (27.0-32.0); Mean Corpuscular Volume 87.5 fL (81-99); Mean Platelet Vol. 9.6 fl (6.2-12.0); Monocyte# 0.46 X10^3/uL; Monocyte% 5.6 % (0-10); NRBC Flagged by Analyzer 0 % (0-5); Neutrophil # 4.62 X10^3/uL (2.7-7.7); Platelet Count 341 K/mm3 (150-450); RBC Distribution Width CV 14.1 % (11.6-14.6); RBC Distribution Width SD 44.8 fl (35.1-43.9); Red Blood Count 4.23 M/mm3 (4.2-5.4); White Blood Count 8.2 K/mm3 (4.4-11.0)
--- NOTE | 2025-01-22 11:16 | ED.VIS.CHEST ---
HPI History of Present Illness Chief Complaint: Chest Pain Informant: patient, EMS and SNF Narrative Narrative: 59-year-old female history of coronary artery disease presenting to the emergency department with a chief complaint of left-sided chest pain. Patient and the facility's nurse practitioner notes his symptoms began around 630 this morning. She describes it as a left-sided chest pressure rating up towards the shoulder. She notes that her chest is mildly tender to palpation. She denies any cough fever. She does note she had a bout of diarrhea this morning. This is a recurrent issue for the patient. She is on Eliquis. Heart catheterization May 28, 2022 shows mild to moderate lesions 50% or less. No intervention was performed. [facility] Medical History Anxiety and depression Diabetes mellitus, type 2 Pulmonary emboli Parathyroid disease History of left heart catheterization (LHC) (~05/21/22) CKD (chronic kidney disease) stage 3, GFR 30-59 ml/min Essential hypertension Orthostatic hypotension Hypothyroidism Chronic back pain Obesity (BMI 35.0-39.9 without comorbidity) Normochromic normocytic anemia Hyperlipidemia Former smoker Opiate abuse, continuous Intervertebral disc disorder with radiculopathy of lumbar region Carpal tunnel syndrome Kidney stones Thyroid disease Migraines Stomach ulcer HTN (hypertension) Home Medications ?Medication ?Instructions ?Recorded ?Last Taken ?Type rizatriptan 10 mg tablet 10 mg PO PRN Migraine Symptoms 12/27/17 04/03/24 History atorvastatin 40 mg tablet 40 mg PO QHS #30 tabs 05/21/22 06/19/24 Rx metoprolol succinate 25 mg 25 mg PO DAILY #30 tabs 05/21/22 06/18/24 Rx tablet,extended release 24 hr pantoprazole 40 mg tablet,delayed 40 mg PO DAILY 06/12/22 06/19/24 History release ranolazine 500 mg tablet,extended 500 mg PO BID #60 tabs 06/12/22 06/19/24 Rx release,12 hr midodrine 10 mg tablet 10 mg PO BID 09/09/22 06/20/24 History quetiapine 25 mg tablet 37.5 mg PO QHS 01/29/23 06/19/24 History acetaminophen 325 mg tablet 650 mg (2 x 325 mg) PO Q6H PRN PRN 11/24/23 06/16/24 Rx Pain 1-10 Or Fever >100.7 #0 tabs melatonin 3 mg tablet 3 mg PO QHS PRN PRN Insomnia #0 11/24/23 06/19/24 Rx tabs sennosides 8.6 mg-docusate sodium 2 tab PO BID PRN PRN Constipation 01/05/24 06/19/24 Rx 50 mg tablet (Stool #0 tabs Softener-Stimulant Laxative) loperamide 2 mg capsule 2 mg PO Q6H PRN loose stool 04/02/24 03/08/24 History (Anti-Diarrheal (loperamide)) nystatin 100,000 unit/gram topical 1 applic topical BID 04/02/24 Unknown History powder (Nyamyc) fluticasone propionate 50 2 spray intranasal DAILY 06/20/24 06/19/24 History mcg/actuation nasal spray,suspension (Aller-Scar) nitroglycerin 0.4 mg sublingual 0.4 mg sublingual Q5M PRN chest 06/20/24 Unknown History tablet pain nystatin 100,000 unit/mL oral 1 ml PO TID 7 days #21 mL 06/20/24 Unknown Rx suspension promethazine 25 mg tablet 25 mg PO Q6H PRN nausea and 06/20/24 Unknown History vomiting ondansetron 4 mg disintegrating 4 mg PO Q8H PRN PRN Nausea #10 tabs 07/08/24 Unknown Rx tablet apixaban 5 mg tablet (Eliquis) 5 mg PO BID 08/19/24 Unknown History bisacodyl 10 mg rectal suppository 10 mg CA DAILY PRN constipation 08/19/24 Unknown History buprenorphine 20 mcg/hour weekly 1 patch topical QWEEK 08/19/24 Unknown History transdermal patch citalopram 10 mg tablet 10 mg PO DAILY 08/19/24 Unknown History dulaglutide 3 mg/0.5 mL 3 mg subcut QWEEK 08/19/24 Unknown History subcutaneous pen injector (Trulicity) fenofibrate 160 mg tablet 160 mg PO DAILY 08/19/24 Unknown History insulin glargine-yfgn 100 unit/mL 48 unit subcut BID 08/19/24 Unknown History (3 mL) subcutaneous pen levothyroxine 125 mcg tablet 125 mcg PO DAILY 08/19/24 Unknown History magnesium citrate (Citrate of 150 ml PO PRN PRN constipation 08/19/24 Unknown History Magnesia oral) magnesium hydroxide 400 mg/5 mL 30 ml PO DAILY PRN constipation 08/19/24 Unknown History oral suspension (Dulcolax (magnesium hydroxide)) potassium chloride 20 mEq 20 meq PO DAILY 08/19/24 Unknown History tablet,extended release(part/cryst) ondansetron 4 mg disintegrating 4 mg PO Q8H PRN PRN Nausea #10 tabs 10/24/24 Unknown Rx tablet lorazepam 0.5 mg tablet 0.5 mg PO BID anxiety 1 month #60 12/25/24 Unknown Rx tabs Allergy/AdvReac Type Severity Reaction Status Date / Time celecoxib (From Celebrex) Allergy Itching Verified 01/22/25 10:45 ciprofloxacin (From Cipro) Allergy Swelling Verified 01/22/25 10:45 ciprofloxacin HCl (From Allergy Swelling Verified 01/22/25 10:45 Cipro) codeine Allergy Hives Verified 01/22/25 10:45 ibuprofen Allergy Hives Verified 01/22/25 10:45 naproxen Allergy Hives Verified 01/22/25 10:45 Penicillins Allergy Hives Verified 01/22/25 10:45 tramadol HCl (From Ultram) Allergy Hives Verified 01/22/25 10:45 ketorolac (From Toradol) AdvReac Swelling Verified 01/22/25 10:45 Family History Mother Cancer CVA (cerebral vascular accident) Hypertension Heart disease Myocardial infarction Diabetes Father Asthma Surgical History History of cholecystectomy S/P trigger finger release H/O: hysterectomy Hx of section Social History household members: other details: currently living in a NH for therapy for chronic back pain housing: shelter Smoking Status: Former smoker Tobacco: How many years used: 46 how long ago did patient quit smoking: Quit 09/2021, smoked 1 ppd since teen until quit. alcohol intake: never substance use type: other details: History of chronic opiate use. Denies abuse. ROS ROS ED Constitutional Constitutional ED: Denies chills, fever(s) or weight loss Eyes Eyes: Denies change in vision or diplopia ENT ENT ED: Denies ear pain, rhinorrhea or sore throat Cardiovascular Cardiovascular: Reports chest pain; Denies orthopnea, palpitations or racing heartbeat Respiratory/Chest Respiratory/Chest: Denies cough, dyspnea or orthopnea Gastrointestinal Gastrointestinal: Reports diarrhea; Denies abdominal pain, nausea or vomiting Genitourinary Genitourinary ED: Denies dysuria, hematuria or urinary frequency Musculoskeletal Musculoskeletal: Denies arthralgias or myalgias Integumentary Denies abscess or rash Neurologic Neurologic: Denies headache(s) or weakness Psychiatric Psychiatric: Denies anxiety, depression, suicidal ideation or suicidal thoughts Endocrine Endocrinology: Denies polydipsia, polyphagia or polyuria Allergic/Immunologic Allergic/Immunologic ED: Denies mouth swelling, tongue swelling or urticaria EXAM Physical Exam Const Vital Signs: 01/22/25 10:42 01/22/25 10:48 01/22/25 12:40 Temperature 98.1 F Temperature Source Oral Pulse Rate 78 74 Respiratory Rate 18 18 Blood Pressure 127/62 H 121/59 H Blood Pressure Mean 83 79 Pulse Ox 96 96 Oxygen Delivery Method Room Air Room Air 01/22/25 13:50 01/22/25 14:00 Temperature 98.2 F Temperature Source Pulse Rate 74 78 Respiratory Rate 18 18 Blood Pressure 117/57 L 117/89 H Blood Pressure Mean 77 98 Pulse Ox 96 98 Oxygen Delivery Method Positive well nourished, well developed and obese General Appearance ED: well developed and NAD Nutritional Appearance: obese HEENT Reports normocephalic, head/scalp atraumatic and moist mucous membranes Eyes PERRL and EOMs intact bilaterally Neck no lymphadenopathy, supple and no JVD Chest Wall Chest Narrative: Left anterior costochondral chest wall is tender to palpation. This is the area that hurts per the patient. Resp normal respiratory effort and clear to auscultation bilaterally Cardio regular rate, regular rhythm and no murmurs GI normal to inspection, nondistended, normoactive bowel sounds and non-tender Palpation: soft Back/Spine no CVA tenderness and normal ROM Extremity normal to inspection General Extremety ED: Negative for edema General Extremity: Negative for edema Neuro oriented x3 and CN's II-XII intact bilaterally Sensorium / Orientation: alert Motor Exam: strength 5/5 throughout Psych mental status grossly normal Mood & Affect: Negative for depressed or tearful Skin no rashes or lesions noted and no wounds MDM MDM MDM Narrative Medical decision making narrative: Differential diagnosis includes chest wall pain chondritis acute coronary syndrome EKG is nonischemic and sinus rhythm. 2 sets of cardiac enzymes are 54 and 48. I depend interpretation of the chest x-ray is no acute process. White count is 8.2. Clinically I think the patient can be discharged back to shelter. She received a dose of oxycodone for pain. Patient is comfortable with her plan she gets History & Record Review Discussion w/independent historian: Patient Lab Data Attestation: I reviewed the patient's lab results. Labs: Laboratory Results - last 24 hr 01/22/25 01/22/25 10:40 13:09 WBC 8.2 RBC 4.23 Hgb 12.1 Hct 37.0 MCV 87.5 MCH 28.6 MCHC 32.7 RDW Std Deviation 44.8 H RDW Coeff of Anisa 14.1 Plt Count 341 MPV 9.6 Immature Gran % (Auto) 1.000 H Neut % (Auto) 56.0 Lymph % (Auto) 35.8 [place] % (Auto) 5.6 Eos % (Auto) 1.0 Baso % (Auto) 0.6 Absolute Neuts (auto) 4.6 Absolute Lymphs (auto) 2.95 Nucleated RBC % 0 Sodium 133 Potassium 4.4 Chloride 98 Carbon Dioxide 22.3 Anion Gap 12 BUN 33 H Creatinine 1.37 H Estim Creat Clear Calc 43.47 L Est GFR (MDRD) Non-Af 44 L BUN/Creatinine Ratio 24.2 H Glucose 245 H Calcium 9.4 Troponin T High Sens 54 H* Troponin T Hi Sens 2 Hr 48 H Radiography Diagnostic Testing: Clinical Impression(s) from Imaging Studies Chest X-Ray 01/22/25 10:55 IMPRESSION: No Acute Findings. Reading Location: [place] [id number] EKG Initial EKG: Attestation: I personally reviewed and interpreted this EKG as follows: Comments: Normal sinus rhythm ventricular rate of 78 bpm. Management Discussion w/another healthcare provider: PCP (Yimi ARREDONDO)) Discharge Plan Triage Chief Complaint: Chest Pain ED Provider: Zack Choi Dx/Rx/DC Orders Clinical Impression: Chest pain Instructions: ED Chest Pain, Noncardiac Prescriptions: No Action pantoprazole 40 mg tablet,delayed release (DR/EC) 40 mg PO DAILY ranolazine 500 mg tablet extended release 12 hr 500 mg PO BID Qty: 60 11RF midodrine 10 mg tablet 10 mg PO BID rizatriptan 10 tablet 10 mg PO PRN Patient Comments: metoprolol succinate 25 mg Tablet Extended Release 24 Hr 25 mg PO DAILY Qty: 30 2RF atorvastatin 40 mg tablet 40 mg PO QHS Qty: 30 2RF quetiapine 25 mg tablet 37.5 mg PO QHS acetaminophen 325 mg Tablet 650 mg PO Q6H PRN PRN (Reason: Pain 1-10 Or Fever >100.7) Qty: 0 0RF melatonin 3 mg Tablet 3 mg PO QHS PRN PRN (Reason: Insomnia) Qty: 0 0RF nystatin [Nyamyc] 100,000 unit/gram powder 1 applic topical BID loperamide [Anti-Diarrheal (loperamide)] 2 mg capsule 2 mg PO Q6H PRN (Reason: loose stool) magnesium hydroxide [Dulcolax (magnesium hydroxide)] 400 mg/5 mL suspension 30 ml PO DAILY PRN (Reason: constipation) magnesium citrate [Citrate of Magnesia] Solution 150 ml PO PRN PRN (Reason: constipation) bisacodyl 10 mg suppository 10 mg CA DAILY PRN (Reason: constipation) Trulicity 3 mg/0.5 mL pen injector 3 mg subcut QWEEK citalopram 10 mg tablet 10 mg PO DAILY potassium chloride 20 mEq Tablet,Er Particles/Crystals 20 meq PO DAILY levothyroxine 125 mcg tablet 125 mcg PO DAILY fenofibrate 160 mg tablet 160 mg PO DAILY buprenorphine 20 mcg/hour patch weekly 1 patch topical QWEEK Eliquis 5 mg Tablet 5 mg PO BID insulin glargine-yfgn 100 unit/mL (3 mL) Insulin Pen 48 unit subcut BID ondansetron 4 mg tablet,disintegrating 4 mg PO Q8H PRN PRN (Reason: Nausea) Qty: 10 0RF sennosides-docusate sodium [Stool Softener-Stimulant Laxat] 8.6-50 mg Tablet 2 tab PO BID PRN PRN (Reason: Constipation) Qty: 0 0RF nitroglycerin 0.4 mg tablet, sublingual 0.4 mg sublingual Q5M PRN (Reason: chest pain) Rx Instructions: do not exceed 3 doses per episode fluticasone propionate [Aller-Scar] 50 mcg/actuation spray,suspension 2 spray intranasal DAILY Rx Instructions: administer into each nostril promethazine 25 mg tablet 25 mg PO Q6H PRN (Reason: nausea and vomiting) ondansetron 4 mg tablet,disintegrating 4 mg PO Q8H PRN PRN (Reason: Nausea) Qty: 10 0RF nystatin 100,000 unit/mL suspension 1 ml PO TID 7 Days Qty: 21 1RF Rx Instructions: swish and swallow lorazepam 0.5 mg tablet 0.5 mg PO BID 30 Days Qty: 60 0RF Primary Care Provider: Lizet Linares Referrals: Lizet Linares MD [Primary Care Provider] - Print Language: Upper Sorbian Disposition Disposition: Home, Self Care
[2025-01-22 11:35] LABS: Anion Gap 12 (5-15); BUN 33 mg/dL (4-19); BUN/Creat Ratio 24.2 RATIO (10-20); Calcium,Total 9.4 mg/dL (7.6-11.0); Carbon Dioxide 22.3 mmol/L (21.0-32.0); Chloride 98 mmol/L (98-108); Creatinine, Serum 1.37 mg/dL (0.70-1.20); EST Glomerular Filtration Rate 44 (>60); Estimated Creatinine Clearance 43.47 ml/min (50-250); Glucose 245 mg/dL (70-99); Potassium 4.4 mmol/L (3.3-5.1); Sodium Level 133 mmol/L (133-145); Troponin T High Sensitivity 54 ng/L (<=14)
[2025-01-22] MEDS: oxyCODONE 5 MG Tablet PO (12:02)
[2025-01-22 12:40] VITALS: BP 121/59; PULSE 74; RESP 18; O2SAT 96
[2025-01-22 13:35] LABS: Troponin T High Sens 2 HR 48 ng/L (<=14)
[2025-01-22 13:50] VITALS: BP 117/57; PULSE 74; RESP 18; TEMP 36.8; O2SAT 96
[2025-01-22 14:00] VITALS: BP 117/89; PULSE 78; RESP 18; O2SAT 98
== END 2025-01-22 15:29 | disposition home or self-care (01) ==
PROVIDERS: Emergency Provider Emergency Medicine; PCP Internal Medicine; Visit Provider Emergency Medicine
DX: R07.9 Chest pain, unspecified (principal); E11.22 Type 2 diabetes mellitus with diabetic chronic kidney disease; N18.30 Chronic kidney disease, stage 3 unspecified; E78.5 Hyperlipidemia, unspecified; Z79.01 Long term (current) use of anticoagulants; I12.9 Hypertensive chronic kidney disease with stage 1 through stage 4 chronic kidney disease, or unspecified chronic kidney disease; Z87.891 Personal history of nicotine dependence; E66.9 Obesity, unspecified; R19.7 Diarrhea, unspecified; Z90.710 Acquired absence of both cervix and uterus; Z90.49 Acquired absence of other specified parts of digestive tract; Z86.711 Personal history of pulmonary embolism; E03.9 Hypothyroidism, unspecified; I25.10 Atherosclerotic heart disease of native coronary artery without angina pectoris
CPT/HCPCS: 71045; 80048; 84484; 85025; 93005; 99285; A4216

== ENCOUNTER → 2025-03-05 05:00 | Outpatient (REF) | payer MEDICARE, SELFPAY ==
[2025-03-05 10:26] LABS: AST(SGOT) 23 U/L (<=31); Alanine Aminotransfer ALT/SGPT 24 U/L (<=34); Albumin, Serum 3.4 g/dL (3.4-4.8); Alkaline Phosphatase 51 U/L (35-104); Bilirubin, Direct 0.12 mg/dL (0.00-0.30); Globulin 2.7 g/dL (2.2-4.2); Protein, Total 6.1 g/dL (5.9-8.4); Total Bilirubin 0.19 mg/dL (0.00-1.30)
== END ==
LOC: OLS.WHLEAS 05:00
PROVIDERS: PCP Internal Medicine; Visit Provider Nurse Practitioner Adult Health
DX: E11.22 Type 2 diabetes mellitus with diabetic chronic kidney disease (principal); N18.31 Chronic kidney disease, stage 3a; E11.42 Type 2 diabetes mellitus with diabetic polyneuropathy; I12.9 Hypertensive chronic kidney disease with stage 1 through stage 4 chronic kidney disease, or unspecified chronic kidney disease; E03.9 Hypothyroidism, unspecified
CPT/HCPCS: 36415; 80076

== ENCOUNTER → 2025-03-12 | Outpatient (REF) | payer MEDICARE, MEDICAID, SELFPAY ==
[2025-03-12 07:47] LABS: Anion Gap 12 (5-15); BUN 41 mg/dL (4-19); BUN/Creat Ratio 24.9 RATIO (10-20); Calcium,Total 8.6 mg/dL (7.6-11.0); Chloride 97 mmol/L (98-108); Creatinine, Serum 1.64 mg/dL (0.70-1.20); EST Glomerular Filtration Rate 35 (>60); Glucose 428 mg/dL (70-99); Potassium 4.3 mmol/L (3.3-5.1); Sodium Level 132 mmol/L (133-145)
== END ==
LOC: OLS.WHLEAS 04:00
PROVIDERS: PCP Internal Medicine; Referring Provider Internal Medicine; Visit Provider Internal Medicine
DX: E11.22 Type 2 diabetes mellitus with diabetic chronic kidney disease (principal); E11.42 Type 2 diabetes mellitus with diabetic polyneuropathy; N18.31 Chronic kidney disease, stage 3a; E03.9 Hypothyroidism, unspecified; I12.9 Hypertensive chronic kidney disease with stage 1 through stage 4 chronic kidney disease, or unspecified chronic kidney disease
CPT/HCPCS: 36415; 80048

== ENCOUNTER → 2025-03-29 05:00 | Outpatient (REF) | payer MEDICARE, MEDICAID, SELFPAY ==
[2025-03-29 08:39] LABS: Hemoglobin A1c 10.8 % (<=5.6)
== END ==
LOC: OLS.WHLEAS 05:00
PROVIDERS: PCP Internal Medicine; Visit Provider Internal Medicine
DX: E11.22 Type 2 diabetes mellitus with diabetic chronic kidney disease (principal); N18.31 Chronic kidney disease, stage 3a; E11.42 Type 2 diabetes mellitus with diabetic polyneuropathy; I12.9 Hypertensive chronic kidney disease with stage 1 through stage 4 chronic kidney disease, or unspecified chronic kidney disease; E03.9 Hypothyroidism, unspecified
CPT/HCPCS: 36415; 83036; 84443

== ENCOUNTER → 2025-04-06 | Outpatient (REF) | payer MEDICARE, MEDICAID, SELFPAY ==
--- OUTSIDE RECORDS SUMMARY | 2025-04-06 04:32 | XMS RPT_ITS | CCD ---
Author Organization [facility] Care Team Providers Care Reel Cart Operator Name Role Phone SIXTO CALIXTO Unavailable Unavailable SIXTO CALIXTO Unavailable Unavailable CELILCARLEE Unavailable Unavailable Wil CASTANO, Angelika Cross Unavailable Unavailab le Calixto, Tj L Unavailable Unavailable Calixto, Tj L Unavailable Unavailable Calixto, Tj L Unavailable Unavailable No Family Physician given Unavailable Unavai lable Calixto, Tj L Unavailable Unavailable No Family Physician given Unavailable Unavai lable Calixto, Tj L Unavailable Unavailable No Family Physician given Unavailable Unavai lable Dr. Jarred Lopez Primary Care Provider Dr. Kelechi Geller Emergency Provider Dr. Kathia Shine Admit Provider Dr. Kathia Shine Other Provider FRANSISCO Rivas Attending Provider Unavail able Dr. Kathia Shine Attending Provider [phone] Ramez Prieto Attending Provider Dr. Ramez Prieto Other Provider FRANSISCO Eng NP Attending Provider Unavailable Primary Care Provider UnavailDr. Ana Mckeon Attending Provider Dr. Ana Rivera Other Provider Dr. Bronson Retana Emergency Provider Sementi, Dr. Yanna Stern Admit Provider Semenrose, Dr. Yanna Stern Attending Provider Luis Felipe, Dr. Yanna Stern Other Provider Dr. Mian Lee Attending Provider Dr. Ganesh Garcia Primary Care Provider Yimi RECEPTIONIST AIRLINE LOUNGE, JED-C Ana Maria Attending Provider Unav Dr. Scott Salamanca Referring Provider Dr. Tip Hamilton Emergency Provider Serene, Dr. Hansa Abdullahi Admit Provider Dr. Hansa Cast Other Provider Dr. Júnior Lombardo Attending Provider Dr. Júnior Lombardo Other Provider Miriam Cote Attending Provider Unavailable Dr. Ganesh Garcai Referring Provider Rakesh ADKINS, JED-Zeus Pineda Attending Provider Dr. Jarred Lopez Primary Care Provider Dr. Ramez Prieto Other Provider Dr. Ramez Prieto Attending Provider Dr. Ganesh Garcia Primary Care Provider Dr. Mian Lee Attending Provider Yimi ADKINS, JED-C Ana Maria Attending Provider UnaDr. Ramez Gonzalez Other Provider Dr. Ganesh Garcia Primary Care Provider Miriam Cote Attending Provider Unavailable Dr. Ganesh Garcia Referring Provider FRANSISCO Cameron NP Attending Provider Dr. Júnior Lombardo Attending Provider Yimi ADKINS, JED-C Ana Maria Attending Provider Cynthiav Dr. Ganesh Vasquez Primary Care Provider Dr. Ganesh Garcia Primary Care Provider Dr. Lizet Linares Primary Care Provider [phone] Dr. Lizet Linares Attending Provider Dr. Ganesh Garcia Referring Provider Rakesh RECEPTIONIST AIRLINE LOUNGE, RECEPTIONIST AIRLINE LOUNGE-C Miriam Attending Provider Dr. Ganesh Garcia Primary Care Provider Dr. Ganesh Garcia Primary Care Provider Dr. Ganesh Garcia Referring Provider Rakesh RECEPTIONIST AIRLINE LOUNGE, RECEPTIONIST AIRLINE LOUNGE-C Miriam Attending Provider Dr. Lizet Linares Primary Care Provider [phone] Yimi RECEPTIONIST AIRLINE LOUNGE, RECEPTIONIST AIRLINE LOUNGE-C Ana Maria Attending Provider Cynthiav Dr. Lizet Coronel Attending Provider [phone] Yimi OLS, RECEPTIONIST AIRLINE LOUNGE-C Ana Maria Attending Provider [phone] Unavailable [facility] Lizet Chung Primary Care Provider Yimi RECEPTIONIST AIRLINE LOUNGE, RECEPTIONIST AIRLINE LOUNGE-C Ana Maria Attending Provider Unav Dr. Lizet Coronel Attending Provider [phone] Yimi NOLASCO, RECEPTIONIST AIRLINE LOUNGE-C Ana Maria Attending Provider [phone] Dwayne Lopez MD Primary Care Provider Dr. Lizet Linares Primary Care Provider [phone] Yimi RECEPTIONIST AIRLINE LOUNGE, RECEPTIONIST AIRLINE LOUNGE-C Ana Maria Attending Provider Unav Dr. Lizet Coronel Attending Provider [phone] Dr. Ganesh Garcia Referring Provider Rakesh RECEPTIONIST AIRLINE LOUNGE, RECEPTIONIST AIRLINE LOUNGE-C Miriam Attending Provider Dr. Lizet Linares Primary Care Provider [phone] Dr. Lizet Linares Attending Provider [phone] Yimi RECEPTIONIST AIRLINE LOUNGE, RECEPTIONIST AIRLINE LOUNGE-C Ana Maria Attending Provider Unav Dr. Jarred Avila Primary Care Provider [phone] Dr. Zack Choi Emergency Provider Dr. John Shaw Admit Provider Unavailable Colin, Dr. Lopez Attending Provider Unavailable Colin, Dr. Lopez Other Provider Unavailable David, Dr. Yoder Attending Provider Terl[place], Dr. Yoder Other Provider Dr. Jarred Lopez Primary Care Provider Dr. Zack Choi Emergency Provider Colin, Dr. Lopez Admit Provider Unavailable [place], Dr. Lopez Attending Provider Unavailable Colin, Dr. Lopez Other Provider Unavailable David, Dr. Yoder Attending Provider David, Dr. Yoder Other Provider Dr. Raisa Mc Emergency Provider Dr. Hansa Cast Admit Provider Dr. Hansa Cast Other Provider Dr. Chavez Alcala Attending Provider Dr. Chavez Alcala Other Provider Dr. Cat Guadarrama Attending Provider Dr. Juan Valencia Attending Provider Dr. Jarred Lopez Primary Care Provider Dr. Zack Choi Emergency Provider Dr. John Shaw Admit Provider Unavailable Colin, Dr. Lopez Attending Provider Unavailable Colin, Dr. Lopez Other Provider Unavailable David, Dr. Yoder Attending Provider David, Dr. Yoder Other Provider Dr. Raisa Mc Emergency Provider Dr. Hansa Cast Admit Provider Dr. Hansa Cast Other Provider Dr. Chavez Alcala Attending Provider Dr. Chavez Alcala Other Provider Dr. Cat Guadarrama Attending Provider Dr. Juan Valencia Attending Provider Dr. Ana Rivera Attending Provider Dr. Ana Rivera Other Provider Yimi RECEPTIONIST AIRLINE LOUNGE, RECEPTIONIST AIRLINE LOUNGE-C Ana Maria Attending Provider Dr. Lizet Linares Attending Provider Dr. Chavez Alcala Referring Provider Dwayne Lopez MD Primary Care Provider Unavailable Primary Care Provider Unavailabl e Dwayne Lopez MD Primary Care Provider Podlogar HOSE CEMENTER.Jesica MCMILLAN Unavailable Knoble HOSE CEMENTER.PRACTICE ARCHITECT, Annabel Unavailable Dr. Lizet Linares MD Primary Care Provider Dr. Lizet Linares MD Attending Provider Lizet Linares MD Attending Provider Unavaila Dr. Lizet Fitzgerald MD Referring Provider Lizet Linares MD Referring Provider Unavaila Dr. Salvador Meza DO Attending Provider Dr. Salvador Campbell DO Emergency Provider Yimi ADKINS-CAna Maria Attending Provider Dr. Zack Choi DO Emergency Provider Dr. Lizet Linares MD Primary Care Provider Dr. Lizet Linares MD Attending Provider Claude Cain Attending Provider Dr. Zack Choi DO Attending Provider Knoble HOSE CEMENTER.PRACTICE ARCHITECT, Annabel Unavailable Lizet Linares Referring Unavailable Napoleon Bennett Attending Unavailable Oleghe, Efewongbe Primary Care Unavailable Oleghe OLS, Efewongbe Attending Unavailabl e Oleghe, Efewongbe Primary Care Unavailable Oleghe OLS, Efewongbe Attending Unavailabl e Oleghe, Efewongbe Primary Care Unavailable Oleghe, Efewongbe Primary Care Unavailable Oleghe, Efewongbe Referring Unavailable Oleghe, Efewongbe Attending Unavailable Oleghe OLS, Efewongbe Attending Unavailabl e Oleghe, Efewongbe Primary Care Unavailable Oleghe OLS, Efewongbe Attending Unavailabl e Oleghe, Efewongbe Primary Care Unavailable Oleghe OLS, Efewongbe Attending Unavailabl e Oleghe, Efewongbe Primary Care Unavailable Oleghe OLS, Efewongbe Attending Unavailabl e Oleghe, Efewongbe Primary Care Unavailable Salvador Campbell Attending Unavailable Oleghe, Efewongbe Primary Care Unavailable Oleghe, Efewongbe Primary Care Unavailable Salvador Campbell Attending Unavailable Daniel Mari Referring Unavailable Daniel Mari Attending Unavailable Oleghe, Efewongbe Primary Care Unavailable Oleghe OLS, Efewongbe Attending Unavailabl e Bursley, Jarred Primary Care Unavailable Oleghe OLS, Efewongbe Attending Unavailabl e Bursley, Jarred Primary Care Unavailable Oleghe OLS, Efewongbe Referring Unavailabl e Oleghe OLS, Efewongbe Attending Unavailabl e Bursley, Jarred Primary Care Unavailable Oleghe, Efewongbe Primary Care Unavailable Oleghe OLS, Efewongbe Referring Unavailabl e Oleghe OLS, Efewongbe Attending Unavailabl e Oleghe OLS, Efewongbe Attending Unavailabl e Oleghe, Efewongbe Primary Care Unavailable Oleghe, Efewongbe Primary Care Unavailable Oleghe, Efewongbe Attending Unavailable Oleghe, Efewongbe Primary Care Unavailable [place] RECEPTIONIST AIRLINE LOUNGE, Ana Maria Attending Unavailable Oleghe, Efewongbe Primary Care Unavailable [place] RECEPTIONIST AIRLINE LOUNGE, Ana Maria Attending Unavailable Oleghe OLS, Efewongbe Attending Unavailabl e Oleghe, Efewongbe Primary Care Unavailable Oleghe, Efewongbe Attending Unavailable Oleghe, Efewongbe Primary Care Unavailable Oleghe, Efewongbe Primary Care Unavailable Oleghe OLS, Efewongbe Attending Unavailabl e Oleghe, Efewongbe Primary Care Unavailable Oleghe OLS, Efewongbe Attending Unavailabl e Oleghe, Efewongbe Primary Care Unavailable Oleghe OLS, Efewongbe Attending Unavailabl e Oleghe, Efewongbe Primary Care Unavailable Oleghe OLS, Efewongbe Attending Unavailabl e Oleghe OLS, Efewongbe Attending Unavailabl e Bursley, Jarred Primary Care Unavailable Oleghe OLS, Efewongbe Attending Unavailabl e Oleghe, Efewongbe Primary Care Unavailable Ana Maria Levi Attending Unavailable Oleghe, Efewongbe Primary Care Unavailable Oleghe OLS, Efewongbe Referring Unavailabl e Oleghe OLS, Efewongbe Attending Unavailabl e Oleghe, Efewongbe Primary Care Unavailable Oleghe, Efewongbe Primary Care Unavailable Oleghe OLS, Efewongbe Attending Unavailabl e Oleghe, Efewongbe Primary Care Unavailable Oleghe OLS, Efewongbe Attending Unavailabl e Oleghe OLS, Efewongbe Attending Unavailabl e Oleghe, Efewongbe Primary Care Unavailable Oleghe, Efewongbe Primary Care Unavailable Oleghe OLS, Efewongbe Attending Unavailabl e Oleghe, Efewongbe Primary Care Unavailable Oleghe OLS, Efewongbe Attending Unavailabl e Oleghe, Efewongbe Primary Care Unavailable Oleghe OLS, Efewongbe Attending Unavailabl e Oleghe, Efewongbe Primary Care Unavailable Oleghe OLS, Efewongbe Attending Unavailabl Raúl Dickinson Attending Unavailable Oleghe, Efewongbe Primary Care Unavailable Oleghe, Efewongbe Primary Care Unavailable Zack Choi Attending Unavailable Adebayo Camp Attending Unavailable Oleghe, Efewongbe Primary Care Unavailable Oleghe, Efewongbe Primary Care Unavailable Oleghe OLS, Efewongbe Attending Unavailabl e Oleghe OLS, Efewongbe Attending Unavailabl e Oleghe, Efewongbe Primary Care Unavailable Oleghe OLS, Efewongbe Attending Unavailabl e Oleghe, Efewongbe Primary Care Unavailable Jacqueline Renteria Attending Unavailable Jacqueline Renteria Referring Unavailable Bursley, Jarred Primary Care Unavailable Oleghe OLS, Efewongbe Attending Unavailabl e Oleghe, Efewongbe Primary Care Unavailable Oleghe OLS, Efewongbe Attending Unavailabl e Oleghe, Efewongbe Primary Care Unavailable Oleghe OLS, Efewongbe Attending Unavailabl e Oleghe, Efewongbe Primary Care Unavailable Oleghe OLS, Efewongbe Attending Unavailabl e Bursley, Jarred Primary Care Unavailable Oleghe OLS, Efewongbe Attending Unavailabl e Bursley, Jarred Primary Care Unavailable Oleghe OLS, Efewongbe Attending Unavailabl e Bursley, Jarred Primary Care Unavailable Oleghe OLS, Efewongbe Attending Unavailabl e Bursley, Jarred Primary Care Unavailable Oleghe OLS, Efewongbe Attending Unavailabl e Oleghe, Efewongbe Primary Care Unavailable Oleghe, Efewongbe Primary Care Unavailable [place] RECEPTIONIST AIRLINE LOUNGE, Ana Maria Attending Unavailable Oleghe, Efewongbe Referring Unavailable Shonda Chávez Attending Unavailabl e Oleghe, Efewongbe Primary Care Unavailable Oleghe, Efewongbe Primary Care Unavailable [place] RECEPTIONIST AIRLINE LOUNGE, Ana Maria Attending Unavailable [place] RECEPTIONIST AIRLINE LOUNGE, Ana Maria Attending Unavailable Oleghe, Efewongbe Primary Care Unavailable Oleghe, Efewongbe Attending Unavailable Oleghe, Efewongbe Primary Care Unavailable Oleghe, Efewongbe Attending Unavailable Oleghe, Efewongbe Primary Care Unavailable Oleghe, Efewongbe Primary Care Unavailable [place] RECEPTIONIST AIRLINE LOUNGE, Ana Maria Attending Unavailable Oleghe, Efewongbe Attending Unavailable Oleghe, Efewongbe Primary Care Unavailable Oleghe, Efewongbe Primary Care Unavailable [place] RECEPTIONIST AIRLINE LOUNGE, Ana Maria Attending Unavailable Oleghe, Efewongbe Referring Unavailable Friend, Napoleon Attending Unavailable Friend, Napoleon Consulting Unavailable Oleghe, Efewongbe Primary Care Unavailable Oleghe, Efewongbe Referring Unavailable Sumit Urbina Attending Unavailable Oleghe, Efewongbe Primary Care Unavailable Oleghe, Efewongbe Primary Care Unavailable Claude Cain Attending Unavailable Oleghe, Efewongbe Primary Care Unavailable [place] RECEPTIONIST AIRLINE LOUNGE, Anam Aria Attending Unavailable Oleghe OLS, Efewongbe Referring Unavailabl e Oleghe OLS, Efewongbe Attending Unavailabl e Bursley, Jarred Primary Care Unavailable Oleghe OLS, Efewongbe Attending Unavailabl e Bursley, Jarred Primary Care Unavailable Oleghe, Efewongbe Attending Unavailable Bursley, Jarred Primary Care Unavailable Bursley, Jarred Primary Care Unavailable [place] RECEPTIONIST AIRLINE LOUNGE, Ana Maria Attending Unavailable Oleghe, Efewongbe Primary Care Unavailable [place] RECEPTIONIST AIRLINE LOUNGE, Ana Maria Attending Unavailable Gabrielle Arreguin Attending Unavailable Bursley, Jarred Referring Unavailable Bursley, Jarred Primary Care Unavailable Oleghe OLS, Efewongbe Referring Unavailabl e Oleghe OLS, Efewongbe Attending Unavailabl e Bursley, Jarred Primary Care Unavailable Oleghe OLS, Efewongbe Attending Unavailabl e Bursley, Jarred Primary Care Unavailable Oleghe, Efewongbe Attending Unavailable Oleghe, Efewongbe Primary Care Unavailable Oleghe OLS, Efewongbe Attending Unavailabl e Oleghe, Efewongbe Primary Care Unavailable Allergies Allergy Classification Reported Allergen(s) Allergy Type Date of Onset Reaction(s) Facility (20 sources) ciprofloxacin; Translations: [CIPROFLOXACIN] Drug Allergy 8 Swelling [facility] Repository (20 sources) codeine; Translations: [CODEINE] Drug Allergy 4 Hives, Itching [facility] Repository (20 sources) ibuprofen; Translations: [IBUPROFEN] Drug Allergy 7 [facility] Repository (20 sources) metFORMIN; Translations: [METFORMIN] Drug Allergy 7 Intolerance [facility] Repository (20 sources) naproxen; Translations: [NAPROXEN] Drug Allergy 7 [facility] Repository (20 sources) Penicillins; Translations: [PENICILLINS] Propensity to adverse reactions (disorder) 7 [facility] Repository (20 sources) traMADol; Translations: [TRAMADOL HCL] Drug Allergy 7 [facility] Repository (1 source) Ciprofloxacin Drug Allergy 7 [facility] Work Phone: (1 source) Ketorolac Drug Allergy itching [facility] Work Phone: (1 source) Naproxen Drug Allergy 0 eyes swell, hives [facility] Work Phone: (1 source) Penicillin V Drug Allergy hives [facility] Work Phone: (1 source) traMADol Drug Allergy face swells [facility] Work Phone: (20 sources) celecoxib Drug Allergy 0 Rash [facility] (20 sources) Ciprofloxacin; Translations: [ciprofloxacin HCl] Drug Allergy 2 Swelling [facility] (20 sources) Ketorolac Drug Allergy 9 GI Upset [facility] Work Phone: (1 source) celecoxib Drug Allergy 5 [facility] (1 source) Ketorolac Drug Allergy 5 [facility] Rep[facility] Medications Current Medications Medication Drug Class(es) Dates Sig (Normalized) Sig (Original) acetaminophen 325 mg oral tablet (20 sources) Start: 11-24-2023 Start: 03-27-2022 End: 11-19-2023 acetaminophen 325 mg / HYDROcodone bitartrate 5 mg oral tablet (20 sources) Opioid Agonist Start: 01-06-2023 take 1 tablet by mouth every four hours as needed Hydrocodone-Acetaminophen Active 1 TABLET PO EVERY 4 HOURS NEEDED 10 January 06, 2023 Start: 01-06-2023 Start: 02-28-2021 End: 05-13-2021 Start: 02-28-2021 End: 05-13-2021 Start: 02-28-2021 End: 05-13-2021 take 1 tablet by mouth every six hours as needed Hydrocodone-Acetaminophen Discontinued 1 TABLET PO EVERY 6 HOURS NEEDED 12 February 28, 2021 May 13, 2021 10:49am Start: 11-14-2019 End: 11-17-2019 Start: 11-14-2019 End: 11-17-2019 Start: 11-14-2019 End: 11-17-2019 Hydrocodone-Acetaminophen Discontinued 1 EACH PO EVERY 4 HOURS NEEDED 10 November 14, 2019 November 17, 2019 1:08am Start: 08-02-2019 End: 08-07-2019 Start: 08-02-2019 End: 08-07-2019 Start: 08-02-2019 End: 08-07-2019 take 1 tablet by mouth every six hours as needed Hydrocodone-Acetaminophen Discontinued 1 TABLET PO EVERY 6 HOURS NEEDED 07 27August 02, 2019 August 07, 2019 12:09am Start: 06-29-2019 End: 07-07-2019 Start: 06-29-2019 End: 07-07-2019 Start: 06-29-2019 End: 07-07-2019 take 1 tablet by mouth every six hours as needed Hydrocodone-Acetaminophen Discontinued 1 TABLET PO EVERY 6 HOURS NEEDED 03 26June 29, 2019 July 07, 2019 12:10am Start: 07-24-2018 End: 07-27-2018 Start: 07-24-2018 End: 07-27-2018 Start: 07-24-2018 End: 07-27-2018 Hydrocodone-Acetaminophen (N orco 5-325 Tablet) 1 EACH tablet Discontinued 1 - 2 EACH PO 4 TIMES DAILY NEEDED 09 26July 24, 2018 12:00am July 27, 2018 12:07am Start: 07-19-2018 End: 07-22-2018 Start: 07-19-2018 End: 07-22-2018 Start: 07-19-2018 End: 07-22-2018 take 1 tablet by mouth every six hours as needed Hydrocodone-Acetaminophen Discontinued 1 TABLET PO EVERY 6 HOURS NEEDED 10 July 19, 2018 12:00am July 22, 2018 12:08am Start: 11-04-2015 End: 04-22-2016 Start: 11-04-2015 End: 04-22-2016 Start: 11-04-2015 End: 04-22-2016 take 1 tablet by mouth three times daily Hydrocodone-Acetaminophen Discontinued 1 TABLET PO THREE TIMES A DAY November 04, 2015 1:00am April 22, 2016 7:08am acetaminophen 325 mg / oxyCODONE hydrochloride 5 mg oral tablet (20 sources) Opioid Agonist Start: 01-07-2023 take 1 tablet by mouth every four hours Oxycodone-Acetaminophen (Percocet) 5-325 mg tablet Active 1 TABLET PO Q4H 09 27January 07, 2023 Start: 01-07-2023 Start: 10-19-2019 End: 10-22-2019 Start: 10-19-2019 End: 10-22-2019 Start: 10-19-2019 End: 10-22-2019 take 1 tablet by mouth every six hours as needed Oxycodone-Acetaminophen Discontinued 1 TABLET PO EVERY 6 HOURS NEEDED 07 27October 19, 2019 October 22, 2019 1:08am Start: 01-08-2019 End: 01-11-2019 Start: 01-08-2019 End: 01-11-2019 Start: 01-08-2019 End: 01-11-2019 take 1 tablet by mouth every six hours as needed Oxycodone-Acetaminophen Discontinued 1 TABLET PO EVERY 6 HOURS NEEDED 12 January 08, 2019 12:00am January 11, 2019 12:08am aluminum hydroxide 80 mg/ml / magnesium hydroxide 80 mg/ml / simethicone 8 mg/ml oral suspension (20 sources) Start: 04-24-2022 take 1 mL by mouth every four hours Alum-Mag Hydroxide-Simeth (Mylanta Maximum Strength) 400-400-40 mg/5 mL Suspension Active 15 ML PO Q4H April 24, 2022 12:00am Start: 04-24-2022 apixaban 5 mg oral tablet (20 sources) Factor Xa Inhibitor Start: 01-05-2024 End: 08-19-2024 Start: 01-05-2024 ARIPiprazole 15 mg oral tablet (6 sources) Atypical Antipsychotic Start: 06-20-2021 take 1 tablet by mouth at bedtime Aripiprazole (Abilify) 15 mg Tablet Active 15 MG PO AT BEDTIME June 20, 2021 12:00am atorvastatin 40 mg oral tablet (20 sources) HMG-CoA Reductase Inhibitor Start: 05-21-2022 End: 08-18-2023 take 1 tablet by mouth once daily atorvastatin (LIPITOR) 40 mg tablet Take 1 tablet by mouth once daily. 90 tablet 08/18/2023 Active Start: 10-15-2020 End: 04-07-2023 take 1 tablet by mouth once daily for hyperlipidemia atorvastatin (LIPITOR) 80 mg tablet Indications: Hyperlipidemia with target LDL less than 100 Take 1 tablet by mouth once daily. For cholesterol. 30 tablet 11 10/15/2020 04/07/2023 Discontinued (Other) Comment on above: Take 1 tablet by dmitry th once daily. For cholesterol. Take 40 mg by mouth once daily. Take 1 tablet by dmitry th once daily. baclofen 10 mg oral tablet (19 sources) gamma-Aminobutyric Acid-ergic Agonist Start: 2 take 10 mg by mouth every six hours Baclofen Active 10 MG PO EVERY 6 HOURS April 23, 2022 11:00pm bisacodyl 10 mg rectal suppository (2 sources) Stimulant Laxative Start: 4 Blood-Glucose Meter (FREESTYLE LITE METER) monitoring kit (20 sources) Start: 3 Blood-Glucose Meter (FREESTYLE LITE METER) monitoring kit Indications: Diabetes mellitus type 2 with neurological manifestations (HCC) , Hyperlipidemia associated with type 2 diabetes mellitus (HCC) Free style lite Insulinx 1 Each 04/07/2023 Active Start: 04-07-2023 Blood-Glucose Meter (FREESTYLE LITE METER) monitoring kit Indications: Diabetes mellitus type 2 with neurological manifestations (HCC) , Hyperlipidemia associated with type 2 diabetes mellitus (HCC) (HCC) Free style lite Insulinx 1 Each 04/07/2023 Active Start: 04-07-2023 Blood-Glucose Meter (FREESTYLE [...] on above: Free style lite Insu linx 168 hr buprenorphine 0.02 mg /hr transdermal system (4 sources) Partial Opioid Agonist Start: 08-19-2024 Start: 03-24-2024 End: 08-19-2024 cephalexin 500 mg oral capsule (8 sources) Cephalosporin Antibacterial Start: 10-09-2022 take 500 mg by mouth three times daily Cephalexin Active 500 MG PO THREE TIMES A DAY 14 05October 09, 2022 12:00am Start: 09-27-2021 take 500 mg by mouth every six hours Cephalexin Active 500 MG PO EVERY 6 HOURS January 13, 2022 7:02pm citalopram 10 mg oral tablet (5 sources) Serotonin Reuptake Inhibitor Start: 08-19-2024 Start: 06-20-2021 [facility] Citalopram (Celexa) 20 mg Tablet Active 20 MG PO DAILY June 20, 2021 6:19pm Start: 07-28-2017 CELEXA TABS as directed CITALOPRAM HYDROBROMIDE TABS [id number] Angelika De La Torre LPN clindamycin 300 mg oral capsule (1 source) Lincosamide Antibacterial Start: 04-23-2023 End: 04-30-2023 take 1 capsule by mouth three times daily clindamycin (CLEOCIN) 300 mg capsule Indications: Toothache Take 1 capsule by mouth three times daily for 7 days. 21 capsule 0 04/23/2023 04/30/2023 Active Comment on above: Take 1 capsule by mo [facility] three times daily for 7 days. cyclobenzaprine hydrochloride 10 mg oral tablet (5 sources) Muscle Relaxant Start: 03-24-2022 take 10 mg by mouth three times daily Cyclobenzaprine Active 10 MG PO THREE TIMES A DAY 0 March 24, 2022 12:00am Start: 01-20-2012 End: 07-28-2017 take 1 tablet by mouth three times daily as needed FLEXERIL 10 MG TABS One tablet by mouth three times daily as needed CYCLOBENZAPRINE HCL [id number] Yaw Cabrera MD docusate sodium 50 mg / wanda osides, assisted 8.6 mg oral tablet (20 sources) Start: 01-05-2024 Start: 01-05-2024 Start: 03-27-2022 End: 11-19-2023 Start: 03-27-2022 End: 11-19-2023 Start: 03-27-2022 End: 11-19-2023 take 2 tablets by mouth twice daily Sennosides-Docusate Sodium (Stool Softener-Stimulant Laxat) 8.6-50 mg Tablet Discontinued 2 TABLET PO TWICE A DAY 0 March 27, 2022 12:00am November 19, 2023 11:40am Dulaglutide (20 sources) GLP-1 Receptor Agonist Start: 08-19-2024 Start: 03-24-2024 End: 08-19-2024 Start: 01-29-2023 End: 11-24-2023 Start: 01-29-2023 End: 11-24-2023 Dulaglutide (Trulicity) 3 mg /0.5 mL pen injector Discontinued 3 MG SC MO January 29, 2023 12:00am November 24, 2023 3:09pm Start: 01-29-2023 End: 11-24-2023 Dulaglutide (Trulicity) 3 mg /0.5 mL pen injector Discontinued 3 MG SC MO January 28, 2023 11:00pm November 24, 2023 2:09pm Start: 01-29-2023 Dulaglutide (T rulicity) 3 mg/0.5 mL pen injector Active 3 MG SC MO January 28, 2023 11:00pm Start: 01-29-2023 Dulaglutide (T rulicity) 3 mg/0.5 mL pen injector Active MG SC MO January 29, 2023 12:00am Start: 01-29-2023 dulaglutide (TRULICITY) 3 mg/0.5 mL pen injector (20 sources) Start: 08-18-2023 inject 3 mg by subcutaneous injection every week dulaglutide (TRULICITY) 3 mg/0.5 mL pen injector Inject 3 mg subcutaneously one time a week. 6 mL 08/18/2023 Active Start: 08-18-2023 inject 3 mg by subcu taneous injection [...] mg subcutan eously one time a week. fenofibrate 160 mg oral tabl et (20 sources) Peroxisome Proliferator Receptor alpha Agonist Start: 08-19-2024 Start: 01-29-2023 End: 08-19-2024 Start: 01-29-2023 Start: 01-29-2023 take 50 mg by mouth at bedtime Fenofibrate Active 50 MG PO AT BEDTIME January 29, 2023 12:00am fluticasone propionate 0.05 mg/actuat metered dose nasal spray (20 sources) Corticosteroid Start: 06-20-2024 Start: 08-10-2023 take 2 spray(s) by m outh once daily fluticasone (FLONASE) 50 mcg/actuation nasal spray Use 2 Sprays in each nostril once daily. Rinse mouth after use. 1 Each 08/10/2023 Active Start: 03-12-2010 End: 07-28-2017 take 2 spray(s) nasal route once daily FLONASE 50 MCG/ACT SUSP 2spray/nostril daily FLUTICASONE PROPIONATE [id number] Angelika De La Torre LPN Comment on above: Use 2 Sprays in each nostril once daily. Rinse mouth after use. 3 ml insulin glargine 100 unt/ml pen injector (20 sources) Insulin Analog Start: 04-07-2023 End: 04-07-2023 insulin glargine (LANTUS SOLOSTAR U-100 INSULIN) 100 unit/mL (3 mL) Inject 60 Units subcutaneously daily at bedtime. 5 Each 04/07/2023 Active Start: 01-29-2023 End: 11-24-2023 insulin glargine (LANTUS STEVIE OSTAR U-100 INSULIN) 100 unit/mL (3 mL) Inject 60 Units subcutaneously daily at bedtime. 5 Each 04/07/2023 Active Start: 01-29-2023 End: 11-24-2023 Insulin Glargine (Lantus Stevie ostar U-100 Insulin) 100 unit/mL (3 mL) insulin pen Discontinued 30 UNIT SC AT BEDTIME January 29, 2023 12:00am November 24, 2023 3:09pm Start: 01-29-2023 Insulin Glargi ne (Lantus Solostar U-100 Insulin) 100 unit/mL (3 mL) insulin pen Active 30 UNIT SC DAILY January 29, 2023 12:00am Start: 10-09-2022 Insulin Glargi ne (Lantus Solostar U-100 Insulin) 100 unit/mL (3 mL) insulin pen Active 55 UNIT SC DAILY October 09, 2022 12:00am Start: 01-13-2022 Insulin Glargi ne (Lantus Solostar U-100 Insulin) 100 unit/mL (3 mL) insulin pen Active 40 UNIT SC DAILY 10 23January 13, 2022 7:03pm Start: 06-23-2021 Insulin Glargi ne (Lantus Solostar U-100 Insulin) 100 unit/mL (3 mL) Insulin Pen Active 38 UNIT SC TWICE A DAY June 23, 2021 12:33pm Start: 03-29-2020 End: 11-24-2023 Start: 12-10-2017 End: 06-23-2021 Insulin Glargine Discontinue d 42 UNIT SC AT BEDTIME December 10, 2017 2:38pm June 23, 2021 12:32pm Start: 06-14-2016 End: 06-23-2021 Start: 06-14-2016 End: 03-20-2017 inject 16 [IU] by subcutaneous injection at bedtime Insulin Glargine (Lantus) 100 UNIT/ML Ml Discontinued 16 UNITS SQ AT BEDTIME June 14, 2016 12:00am March 20, 2017 9:43am Start: 08-14-2010 LANTUS SOLN 50 units at bedtime INSULIN GLARGINE SOLN [id number] Brenda Arthur MD Start: 03-10-2010 LANTUS SOLOSTA R SOPN 42 units at bedtimes INSULIN GLARGINE SOLN [id number] Brenda Arthur MD LANTUS SOLN 42 u nits at bedtime INSULIN GLARGINE SOLN [id number] Brenda Arthur MD LANTUS SOLOSTAR SOPN 32 units at bedtimes INSULIN GLARGINE SOLN [id number] Beth Doyle MA Comment on above: Inject 42 Units subc utaneously daily at bedtime. Inject 60 Units subc utaneously daily at bedtime. Insulin Glargine-Yfgn (4 sources) Start: 11-24-2023 Insulin Glargine-Yfgn Active 15 UNIT SC AT BEDTIME 0 November 24, 2023 1:00am Start: 11-24-2023 Insulin Glargi ne-Yfgn Active 15 UNIT SC WITH BREAKFAST 0 November 24, 2023 1:00am Start: 11-24-2023 Insulin Glargi ne-Yfgn Active 15 UNIT SC AT BEDTIME 0 November 24, 2023 12:00am Start: 11-24-2023 Insulin Glargi ne-Yfgn Active 15 UNIT SC WITH BREAKFAST 0 November 24, 2023 12:00am levothyroxine sodium 0.125 m g oral tablet (20 sources) l-Thyroxine Start: 08-19-2024 Start: 06-12-2022 Start: 05-21-2022 End: 06-12-2022 Start: 10-15-2020 End: 08-19-2024 take 1 tablet by mouth once daily for thyroid dysfunction levothyroxine (SYNTHROID) 175 mcg tablet Take 1 tablet by mouth once daily. Take on empty stomach. For Thyroid. 30 tablet 11 10/15/2020 Active Start: 04-05-2018 take 175 ug by mouth once zeyad y Levothyroxine Active 175 MCG PO DAILY April 05, 2018 8:19pm Start: 07-28-2017 SYNTHROID TABS as directed LEVOTHYROXINE SODIUM TABS [id number] Angelika America De La Torre LPN Start: 02-22-2015 End: 03-19-2016 Start: 02-22-2015 End: 03-19-2016 take 125 ug by mouth once daily Levothyroxine Disconti nued 125 MCG PO DAILY@0600 60 February 22, 2015 12:00am March 19, 2016 8:09pm Start: 08-14-2010 End: 07-28-2017 take 1 tablet by mouth once daily LEVOTHYROXINE SODIUM 75 MCG TABS One tablet by mouth daily LEVOTHYROXINE SODIUM [id number] Brenda Arthur MD Comment on above: Take 1 tablet by dmitry th once daily. Take on empty stomach. For Thyroid. loperamide hydrochloride 2 m g oral capsule (20 sources) Opioid Agonist Start: 04-02-2024 Start: 11-19-2023 End: 11-24-2023 Start: 06-12-2022 take 2 mg by mouth e very six hours Loperamide Active 2 MG PO EVERY 6 HOURS June 11, 2022 11:00pm End: 04-07-2023 loperamide HCl (IMODIUM) 2 m g tab Take 2 mg by mouth as needed. 0 04/07/2023 Discontinued (Other) take 1 tablet by dmitry th once as needed loperamide HCl (IMODIUM A-D) 2 mg tab Take 2 mg by mouth as needed. 0 Active Comment on above: Take 2 mg by mouth a s needed. LORazepam 0.5 mg oral tablet (20 sources) Benzodiazepine Start: 12-25-2024 End: 01-23-2025 Start: 01-29-2023 End: 12-23-2024 Start: 11-17-2022 End: 12-30-2022 Start: 11-17-2022 End: 12-30-2022 take 1 tablet by mouth every six hours as needed for anxiety Lorazepam Discontinued 0.5 MG PO Q12H 60 30 November 30, 2022 2:10pm December 30, 2022 1:04am One tablet every 6 hours as needed for anxiety. magnesium citrate 58.2 mg/ml oral solution (2 sources) Start: 08-19-2024 melatonin 3 mg oral tablet (13 sources) Start: 11-24-2023 Start: 11-24-2023 Start: 11-24-2023 take 3 mg by mouth a t bedtime as needed Melatonin Active 3 MG PO AT BEDTIME NEEDED 0 November 24, 2023 1:00am 24 hr metoprolol succinate 2 5 mg extended release oral tablet (20 sources) beta-Adrenergic Jorden Start: 05-21-2022 Start: 03-10-2010 End: 07-28-2017 METOPROLOL TARTRATE 25 MG TA BS 1/2 tablet orally twice daily METOPROLOL TARTRATE [id number] Angelika De La Torre LPN midodrine hydrochloride 10 m g oral tablet (20 sources) alpha-Adrenergic Agonist Start: 09-09-2022 Start: 05-20-2022 End: 09-09-2022 Start: 05-20-2022 End: 09-09-2022 take 1 dose by mouth once daily at bedtime Midodrine Discontinued 10 MG PO TWICE A DAY June 12, 2022 2:51pm September 09, 2022 2:48pm do not give last dose of day after 6PM or within 4 hrs of bedtime Comment on above: Take 10 mg by mouth twice daily. Take last dose no later than 6 pb or within 4 hours of sleep nitroglycerin 0.4 mg subling ual tablet (20 sources) Nitrate Vasodilator Start: 06-20-2024 Start: 09-09-2022 End: 11-24-2023 Start: 09-09-2022 End: 11-24-2023 Start: 09-09-2022 End: 11-24-2023 Nitroglycerin Discontinued 0 .4 MG SL every 5 to 15 minutes September 09, 2022 1:00am November 24, 2023 3:09pm nystatin [id number] unt/ml oral suspension (17 sources) Polyene Antifungal Start: 06-20-2024 Start: 04-02-2024 Start: 11-24-2023 End: 01-01-2024 Start: 11-24-2023 End: 01-01-2024 Start: 11-24-2023 End: 01-01-2024 Nystatin (Nyamyc) 100,000 un it/gram Powder Discontinued 1 APPLIC TOPICAL TWICE A DAY 0 November 24, 2023 1:00am January 01, 2024 7:49pm ondansetron 4 mg disintegrat ing oral tablet (20 sources) Serotonin-3 Receptor Antagonist Start: 07-08-2024 Start: 03-24-2024 End: 04-02-2024 Start: 03-24-2024 End: 08-19-2024 Start: 10-09-2022 End: 11-19-2023 pantoprazole 40 mg delayed release oral tablet (20 sources) Proton Pump Inhibitor Start: 06-12-2022 End: 06-22-2023 take 1 tablet by mouth twice daily before mealtime pantoprazole DR (PROTONIX) 40 mg tablet Indications: Globus sensation , Gastroesophageal reflux disease, unspecified whether esophagitis present Take 1 tablet by mouth twice daily. Take on empty stomach, 1/2 hr before meal. 60 tablet 2 03/24/2023 Active Start: 06-12-2022 take 40 mg by mouth once daily Pantoprazole Active 40 MG PO DAILY June 12, 2022 12:00am Start: 06-03-2015 End: 12-10-2017 Comment on above: Take 1 tablet by dmitry twice daily. Take on empty stomach, 1/2 hr before meal. Pen Needle,Diabetic, Disp Unit (20 sources) Start: 06-23-2021 Pen Needle,Diabetic, Disp Unit Active 0 .ROUTE .MEDSUPPLY June 23, 2021 12:34pm As directed Start: 06-23-2021 End: 11-24-2023 Pen Needle,Diabetic, Disp Un it Discontinued 0 .ROUTE .MEDSUPPLY June 23, 2021 12:00am November 24, 2023 3:13pm As directed Start: 06-23-2021 End: 11-24-2023 Pen Needle,Diabetic, Disp Un it Discontinued 0 .ROUTE .MEDSUPPLY June 22, 2021 11:00pm November 24, 2023 2:13pm As directed Start: 06-23-2021 Pen Needle,Diamond betic, Disp Unit Active 0 .ROUTE .MEDSUPPLY June 22, 2021 11:00pm As directed Start: 06-23-2021 Pen Needle,Diamond betic, Disp Unit Active 0 .ROUTE .MEDSUPPLY June 23, 2021 12:00am As directed phenazopyridine hydrochloride 200 mg oral tablet (4 sources) Start: 10-09-2022 take 1 tablet by mouth three times daily Phenazopyridine (Pyridium) 200 mg tablet Active 200 MG PO THREE TIMES A DAY 6 October 09, 2022 12:00am microencapsulated potassium chloride 20 meq extended release oral tablet (15 sources) Start: 11-24-2023 End: 08-19-2024 promethazine hydrochloride 25 mg oral tablet (2 sources) Phenothiazine Start: 06-20-2024 QUEtiapine 25 mg oral tablet (20 sources) Atypical Antipsychotic Start: 01-29-2023 Start: 01-29-2023 Start: 01-29-2023 take 37.5 mg by mout h at bedtime Quetiapine Active 37.5 MG PO AT BEDTIME January 29, 2023 12:00am Start: 11-05-2022 take 50 mg by mouth at bedtime Quetiapine Active 50 MG PO AT BEDTIME November 05, 2022 1:00am Start: 11-05-2022 Start: 09-09-2022 take 25 mg by mouth at bedtime Quetiapine Active 25 MG PO AT BEDTIME September 09, 2022 12:00am Start: 09-09-2022 take 50 mg by mouth at bedtime Quetiapine Active 50 MG PO AT BEDTIME September 09, 2022 12:00am Start: 06-20-2021 End: 09-09-2022 Start: 06-20-2021 End: 09-09-2022 Start: 06-20-2021 End: 09-09-2022 take 1 tablet by mouth at bedtime Quetiapine (Seroquel) 100 mg Tablet Discontinued 100 MG PO AT BEDTIME June 20, 2021 12:00am September 09, 2022 2:46pm 12 hr ranolazine 500 mg extended release oral tablet (20 sources) Anti-anginal Start: 06-12-2022 Remove Patch (3 sources) Start: 03-27-2022 apply 1 dose topically once daily Remove Patch Active 1 patch topical DAILY@2200 0 March 27, 2022 3:16pm Start: 03-27-2022 apply 1 dose topically once da molly Remove Patch Active 1 patch topical DAILY@2200 0 March 27, 2022 12:00am rizatriptan 10 mg oral tablet (20 sources) Serotonin-1b and Serotonin-1d Receptor Agonist Start: 12-27-2017 take 1 tablet by mouth every two [...] oral tablet (8 sources) Allylamine Antifungal Start: 04-07-2023 End: 07-06-2023 take 1 tablet by mouth once daily terbinafine HCl (LAMISIL) 250 mg tablet Indications: Onychomycosis Take 1 tablet by mouth once daily. 30 tablet 2 04/07/2023 07/06/2023 Active Comment on above: Take 1 tablet by dmitry th once daily. (20 sources) Start: 08-19-2024 Start: 01-05-2024 End: 08-19-2024 Start: 01-05-2024 End: 08-19-2024 Start: 01-05-2024 Start: 11-24-2023 End: 01-05-2024 Start: 11-24-2023 End: 01-05-2024 Start: 11-24-2023 End: 01-01-2024 Start: 04-24-2022 End: 11-19-2023 Start: 06-23-2021 End: 11-24-2023 Start: 06-23-2021 Completed/Discontinued Medications Medication Drug Class(es) Dates Sig (Normalized) Sig (Original) ALPRAZolam 0.5 mg oral tablet (20 sources) Benzodiazepine Start: 03-20-2022 End: 11-30-2022 Start: 03-20-2022 End: 11-30-2022 take 0.5 mg by mouth once daily Alprazolam Discontinued 0.5 MG PO DAILY June 09, 2022 4:15pm June 12, 2022 2:55pm End: 08-14-2010 XANAX 0.5 MG TABS 2 tablets once daily as needed for anxiety attacks ALPRAZOLAM [id number] Beth K Yanira MA Alum-Mag Hydroxide-Simeth (Mylanta Maximum Strength) 400-400-40 mg/5 mL Suspension (3 sources) Start: 04-24-2022 End: 11-19-2023 take 1 mL by mouth every four hours Alum-Mag Hydroxide-Simeth (Mylanta Maximum Strength) 400-400-40 mg/5 mL Suspension Discontinued 15 ML PO Q4H April 24, 2022 12:00am November 19, 2023 11:26am Start: 04-24-2022 End: 11-19-2023 take 1 mL by mouth every four hours Alum-Mag Hydroxide-Simeth (Mylanta Maximum Strength) 400-400-40 mg/5 mL Suspension Discontinued 15 ML PO Q4H April 23, 2022 11:00pm November 19, 2023 10:26am aspirin 81 mg delayed release oral tablet (20 sources) Platelet Aggregation Inhibitor, Nonsteroidal Anti-inflammatory Drug Start: 05-21-2022 End: 11-19-2023 Start: 06-29-2019 aspirin 81 mg chewable tablet DAILY@0800 06/29/2019 Active End: 07-28-2017 take 1 tablet by mouth once daily ASPIRIN LOW DOSE 81 MG TABS one tablet by mouth daily ASPIRIN [id number] Brenda Arthur MD Comment on above: DAILY@0800 azithromycin 250 mg oral tablet (1 source) Macrolide Antimicrobial Start: 07-28-20 AZITHROMYCIN 250 MG TABS 2 tablets today, then 1 tablet daily on days 2 through 11 AZITHROMYCIN [id number] Michael REYNOLDS busPIRone hydrochloride 10 mg oral tablet (2 sources) Start: 03-10-20 End: 08-14-20 10 take 1 tablet by mouth twice daily BUSPAR 10 MG TABS One tablet by mouth twice daily BUSPIRONE HCL [id number] Brenda Arthur MD cholecalciferol 0.05 mg chewable tablet (6 sources) Vitamin D Start: 12-26-19 End: 04-07-20 23 take 1 tablet by mouth once daily cholecalciferol, vitamin D3, 2,000 unit chew Take 1 tablet by mouth once daily. 30 tablet 11 12/26/2019 04/07/2023 Discontinued (Other) Comment on above: Take 1 tablet by dmitry th once daily. doxycycline hyclate 100 mg oral capsule (20 sources) Tetracycline-class Drug Start: 12-10-19 18 End: 12-20-19 furosemide 20 mg oral tablet (2 sources) Loop Diuretic Start: 06-20-20 End: 08-19-20 gabapentin 300 mg oral capsule (20 sources) Anti-epileptic Agent Start: 11-05-19 take 100 mg by mouth once daily Gabapentin Active 100 MG PO DAILY November 05, 2022 1:00am @ 1300. Start: 11-05-2022 End: 11-19-2023 Start: 11-05-2022 End: 02-11-2023 take 300 mg by mouth once daily Gabapentin Discontinue d 300 MG PO DAILY November 05, 2022 1:00am February 11, 2023 1:33pm Start: 11-05-2022 Start: 03-24-2022 take 300 mg by mouth three times daily at mealtime Gabapentin Active 300 MG PO 3 TIMES DAILY WITH MEALS 60 March 23, 2022 11:00pm glucose 0.4 mg/mg oral gel (20 sources) Start: 06-12-2022 End: 11-24-2023 Start: 06-12-2022 End: 11-24-2023 Start: 06-12-2022 End: 11-24-2023 Dextrose (Glutose-15) 40 % g el Discontinued 15 GM PO Q15M June 12, 2022 12:00am November 24, 2023 3:09pm until symptoms of low blood sugar are controlled hydrocortisone 10 mg/ml / neomycin 3.5 mg/ml / polymyxin b 08433 unt/ml otic suspension (20 sources) Aminoglycoside Antibacterial, Polymyxin-class Antibacterial, Corticosteroid Start: 08-14-2017 End: 12-10-2017 Start: 08-14-2017 End: 12-10-2017 Spjavafj-Gtozccsfr-Tq Discon tinued 4 DRP OT 4 TIMES DAILY August 14, 2017 12:00am December 10, 2017 2:37pm Insulin Glargine-Yfgn (20 sources) Start: 09-09-2022 End: 11-19-2023 Start: 09-09-2022 End: 11-19-2023 Insulin Glargine-Yfgn Discon tinued 60 UNIT SC AT BEDTIME September 09, 2022 2:43pm November 19, 2023 11:38am Start: 09-09-2022 End: 11-19-2023 Insulin Glargine-Yfgn Discon tinued 60 UNIT SC AT BEDTIME September 09, 2022 1:43pm November 19, 2023 10:38am Start: 09-09-2022 Insulin Glargi ne-Yfgn Active 60 UNIT SC AT BEDTIME September 09, 2022 2:43pm Start: 09-09-2022 Start: 09-09-2022 Insulin Glargi ne-Yfgn Active 60 UNIT SC AT BEDTIME September 09, 2022 1:43pm Start: 09-09-2022 Insulin Glargi ne-Yfgn Active 45 UNIT SC EVERY MORNING September 09, 2022 1:43pm Start: 06-12-2022 End: 09-09-2022 Insulin Glargine-Yfgn Discon tinued 40 UNIT SC EVERY MORNING June 12, 2022 2:17pm September 09, 2022 2:48pm Start: 06-12-2022 End: 09-09-2022 Start: 06-12-2022 End: 09-09-2022 Insulin Glargine-Yfgn Discon tinued 40 UNIT SC EVERY MORNING June 12, 2022 1:17pm September 09, 2022 1:48pm Start: 06-12-2022 Insulin Glargi ne-Yfgn Active 40 UNIT SC EVERY MORNING June 12, 2022 2:17pm Start: 03-24-2022 Insulin Glargi ne-Yfgn Active 35 UNIT SC DAILY 0 March 24, 2022 11:03am Start: 03-24-2022 End: 06-12-2022 Start: 03-24-2022 End: 06-12-2022 Insulin Glargine-Yfgn Discon tinued 35 UNIT SC DAILY 0 March 23, 2022 11:00pm June 12, 2022 1:22pm Start: 03-24-2022 End: 06-12-2022 Insulin Glargine-Yfgn Discon tinued 35 UNIT SC DAILY 0 March 24, 2022 12:00am June 12, 2022 2:22pm Start: 03-24-2022 Insulin Glargi ne-Yfgn Active 35 UNIT SC DAILY 0 March 24, 2022 12:00am 3 ml insulin lispro 100 unt/ml pen injector (20 sources) Insulin Analog Start: 11-24-2023 Insulin Lispro (Humalog Kwikpen Insulin) 100 unit/mL Insulin Pen Active 5 UNIT SC WITH BREAKFAST 0 November 24, 2023 1:00am Start: 11-05-2022 Insulin Lispro (Humalog Kwikpen Insulin) 100 unit/mL insulin pen Active 14 UNIT SC DAILY November 05, 2022 3:23am @ 1645 Start: 11-05-2022 End: 11-24-2023 Insulin Lispro Discontinued 15 UNIT SC THREE TIMES A DAY November 05, 2022 1:00am November 24, 2023 3:09pm with meals Start: 03-24-2022 End: 08-19-2024 Start: 03-24-2022 End: 11-05-2022 Insulin Lispro (Humalog Kwik pen Insulin) 100 unit/mL Insulin Pen Discontinued 10 UNIT SC THREE TIMES DAILY BEFORE MEALS 0 March 24, 2022 12:00am November 05, 2022 3:23am Start: 12-26-2019 insulin lispro (HUMALOG KWIKPEN INSULIN) 100 unit/mL Indications: Diabetes mellitus type 2 with neurological manifestations (HCC) Inject 14 Units subcutaneously w MEALS. 15 mL 11 12/26/2019 Active Start: 07-20-2019 Insulin Lispro (Humalog Kwikpen Insulin) 100 unit/mL insulin pen Active 1 sliding scale dose SC THREE TIMES A DAY January 13, 2022 7:11pm Humalog with every meal. Sliding scale. Start: 07-28-2017 HUMALOG MARGE georges s directed INSULIN LISPRO SOLN [id number] Angelika De La Torre LPN insulin lispro ( HUMALOG KWIKPEN) 100 unit/mL Inject 15 Units subcutaneously three times daily before meals. Active Comment on above: Inject 14 Units subc utaneously w MEALS. Inject 15 Units subc utaneously three times daily before meals. insulin lispro (HUMALOG KWIKPEN) 100 unit/mL (10 sources) insulin lispro ( HUMALOG KWIKPEN) 100 unit/mL Inject 15 Units subcutaneously three times daily before meals. 0 Active Comment on above: Inject 15 Units subc utaneously three times daily before meals. INSULIN ASPART PROT & ASPART SUSP (1 source) Insulin Analog NOVOLOG MIX 70/3 0 FLEXPEN SUPN three times daily, sliding scale INSULIN ASPART PROT & ASPART SUSP [id number] Beth Doyle MA 3 ml insulin, aspart, human 100 unt/ml pen injector (2 sources) Insulin Analog Start: 03-10-2010 End: 07-28-2017 NOVOLOG FLEXPEN SOLN 12 units SC at breakfast, 10 units SC at lunch, 10 units SC at supper INSULIN ASPART SOLN [id number] Angelika De La Torre LPN levoFLOXacin 750 mg oral tablet (20 sources) Quinolone Antimicrobial Start: 08-16-2017 End: 12-10-2017 lidocaine 0.04 mg/mg medicated patch (20 sources) Antiarrhythmic, Amide Local Anesthetic Start: 04-24-2022 End: 11-19-2023 Start: 04-24-2022 End: 11-19-2023 Start: 04-24-2022 End: 11-19-2023 apply 1 dose topically once daily Lidocaine Discontinued 2 PATCH TOPICAL DAILY June 12, 2022 2:19pm November 19, 2023 11:39am Start: 03-24-2022 apply 1 dose topical ly once daily Lidocaine Active 2 PATCH TOPICAL DAILY March 24, 2022 11:07am Start: 04-19-2020 End: 04-07-2023 lidocaine 4 % gel Apply to a ffected area as needed. 30 g 0 04/19/2020 04/07/2023 Discontinued (Other) Comment on above: Apply to affected ar ea as needed. lisinopril 10 mg oral tablet (2 sources) Angiotensin Converting Enzyme Inhibitor Start: 0 End: 7 take 1 tablet by mouth once daily LISINOPRIL 10 MG TABS One tablet by mouth daily LISINOPRIL [id number] Brenda Arthur MD Menthol / Zinc Oxide (2 sources) Start: 4 End: 4 Menthol-Zinc Oxide (Calmoseptine) 0.44-20.6 % Ointment Discontinued 1 APPLIC TOPICAL THREE TIMES A DAY 0 November 24, 2023 1:00am January 01, 2024 7:47pm Start: 11-24-2023 End: 01-01-2024 Menthol-Zinc Oxide (Calmosep charmaine) 0.44-20.6 % Ointment Discontinued 1 APPLIC TOPICAL THREE TIMES A DAY 0 November 24, 2023 12:00am January 01, 2024 6:47pm mirtazapine 15 mg oral table t (20 sources) Start: 09-09-2022 End: 01-01-2024 Start: 09-09-2022 End: 01-01-2024 Start: 09-09-2022 End: 01-01-2024 take 7.5 mg by mouth at bedtime Mirtazapine Discontinu ed 7.5 MG PO AT BEDTIME September 09, 2022 1:00am January 01, 2024 7:49pm Start: 09-09-2022 take 15 mg by mouth at bedtime Mirtazapine Active 15 MG PO AT BEDTIME September 09, 2022 12:00am mupirocin 0.02 mg/mg topical ointment (6 sources) RNA Synthetase Inhibitor Antibacterial Start: 10-31-2021 End: 04-07-2023 mupirocin (BACTROBAN) 2 % ointment Apply to affected area three times daily. 15 g 1 10/31/2021 04/07/2023 Discontinued (Other) Comment on above: Apply to affected ar ea three times daily. omeprazole 20 mg delayed release oral capsule (6 sources) Proton Pump Inhibitor Start: 04-18-2020 End: 03-24-2023 omeprazole (PRILOSEC) 20 mg capsule Indications: Vitamin D deficiency take 1 capsule daily 30 minutes before breakfast 30 capsule 04/18/2020 03/24/2023 Discontinued Start: 03-01-2019 take 40 mg by mouth once daily Omeprazole Active 40 MG PO DAILY March 01, 2019 4:40pm Comment on above: take 1 capsule daily 30 minutes before breakfast oxyCODONE hydrochloride 5 mg oral tablet (20 sources) Opioid Agonist Start: 01-05-2024 End: 04-02-2024 Start: 03-20-2017 End: 12-27-2017 Start: 01-20-2012 take 1 tablet by dmitry th four times daily as needed OXYCODONE HCL 30 MG TABS One tablet by mouth four times daily PRN OXYCODONE HCL [id number] Yaw Cabrera MD polyethylene glycol 3350 170 00 mg powder for oral solution (20 sources) Osmotic Laxative Start: 03-27-2022 End: 11-19-2023 sulfamethoxazole 800 mg / trimethoprim 160 mg oral tablet (20 sources) Dihydrofolate Reductase Inhibitor Antibacterial, Sulfonamide Antimicrobial Start: 02-28-2021 End: 05-13-2021 Start: 02-28-2021 End: 05-13-2021 Start: 02-28-2021 End: 05-13-2021 take 1 tablet by mouth once daily Sulfamethoxazole-Trimethoprim (Bactrim Ds) 800-160 mg tablet Discontinued 1 TABLET PO DAILY February 28, 2021 12:00am May 13, 2021 10:50am triamcinolone acetonide 1 mg/ml topical cream (1 source) Corticosteroid Start: 08-14-2010 End: 08-28-2010 TRIAMCINOLONE ACETONIDE 0.1 % CREA affected area twice daily TRIAMCINOLONE ACETONIDE [id number] Brenda Arthur MD CHOLECALCIFEROL CAPS (1 source) Start: 07-28-2017 VITAMIN D CAPS as directed CHOLECALCIFEROL CAPS [id number] Angelika De La Torre LPN Problems Active Problems Problem Classification Problem Date Documented Da te Episodic/Chronic Anxiety disorders (20 sources) Panic attack; Translations: [Chronic anxiety] Onset: 0 03-10-2010 Chronic Blindness and vision defects (1 source) Eye / vision finding; Translations: [Unspecified visual disturbance] Episodic Cardiac dysrhythmias (20 sources) Palpitations; Translations: [Palpitations] Onset: 5 02-11-2023 Episodic Chronic kidney disease (20 sources) Chronic kidney disease stage 3A ; Translations: [Chronic renal failure, stage 3a] Onset: 3 Chronic Chronic kidney disease (2 sources) Chronic kidney disease; Translations: [Chronic kidney disease, stage 3a] Onset: 5 Coma; stupor; and brain damage (20 sources) Daytime somnolence; Translations: [Somnolence] 12-09-2022 Episodic Conditions associated with dizziness or vertigo (20 sources) Dizziness; Translations: [Dizziness and giddiness] Episodic Coronary atherosclerosis and other heart disease (20 sources) Coronary atherosclerosis; Translations: [Atherosclerotic heart disease of [place] coronary artery without angina pectoris] Onset: 5 Chronic Deficiency and other anemia (1 source) Normocytic normochromic anemia; Translations: [Anemia, unspecified] Episodic Deficiency and other anemia (1 source) Anemia, unspecified; Translations: [Anemia, unspecified] Episodic Delirium, dementia, and amnestic and other cognitive disorders (1 source) Age-related physical debility; Translations: [Age-related physical debility] Onset: 4 Chronic Diabetes mellitus with complications (20 sources) Type 1 diabetes mellitus uncontrolled; Translations: [Hyperglycemia due to diabetes mellitus] Onset: 4 03-10-2010 Chronic Diabetes mellitus without complication (20 sources) Diabetes mellitus; Translations: [Type 2 diabetes mellitus without complications] Chronic Diabetes mellitus without complication (20 sources) Hyperglycemia; Translations: [Hyperglycemia, unspecified] 04-08-2019 Episodic Disorders of lipid metabolism (20 sources) Pure hypercholesterolemia; Translations: [Pure hypercholesterolemia, unspecified] Chronic Disorders of teeth and jaw (20 sources) Infection of tooth; Translations: [Periapical abscess without sinus] 06-09-2022 Episodic Esophageal disorders (2 sources) Gastroesophageal reflux disease; Translations: [Gastro-esophageal reflux disease without esophagitis] Onset: 3 03-10-2010 Chronic Essential hypertension (20 sources) Benign essential hypertension; Translations: [Hypertensive disorder] Onset: 0 08-14-2010 Chronic Gastroduodenal ulcer (except hemorrhage) (20 sources) Gastric ulcer; Translations: [Gastric ulcer, unspecified as acute or chronic, without hemorrhage or perforation] Onset: 4 02-27-2016 Chronic Headache; including migraine (20 sources) Migraine; Translations: [Migraine, unspecified, not intractable, without status migrainosus] 04-08-2019 Chronic Headache; including migraine (2 sources) Headache; Translations: [Headache] 04-01-2024 Episodic Immunizations and screening for infectious disease (4 sources) Patient encounter status; Translations: [Encounter for immunization] Episodic Intestinal obstruction without hernia (18 sources) Fecal impaction; Translations: [Fecal impaction of rectum] 03-28-2023 Episodic Malaise and fatigue (1 source) Asthenia; Translations: [Weakness] Episodic Nonspecific chest pain (20 sources) Atypical chest pain; Translations: [Chest pain] Onset: 0 Resolved: 0 08-14-2010 Episodic Nutritional deficiencies (20 sources) Vitamin D deficiency; Translations: [Vitamin D deficiency, unspecified] Onset: 0 12-26-2019 Chronic Other aftercare (7 sources) Long-term current use of anticoagulant; Translations: [FDC (current) use of anticoagulants] 01-20-2024 Episodic Other circulatory disease (20 sources) Orthostatic hypotension; Translations: [Orthostatic hypotension] 06-09-2022 Episodic Other circulatory disease (2 sources) Feeling of lump in throat; Translations: [Other specified symptoms and signs involving the circulatory and respiratory systems] Episodic Other connective tissue disease (14 sources) Pain in lower limb; Translations: [Pain in leg, unspecified] 11-19-2023 Episodic Other connective tissue disease (12 sources) Pain in leg, unspecified; Translations: [Pain in limb] 11-19-2023 Episodic Other diseases of kidney and ureters (20 sources) Renal impairment; Translations: [Disorder of kidney and ureter, unspecified] 05-28-2022 Episodic Other diseases of kidney and ureters (5 sources) Disorder of kidney and ureter, unspecified; Translations: [Unspecified disorder of kidney and ureter] Episodic Other endocrine disorders (20 sources) Osteitis fibrosa cystica; Translations: [Primary hyperparathyroidism] 04-08-2019 Chronic Other endocrine disorders (20 sources) Hyperparathyroidism; Translations: [Hyperparathyroidism, unspecified] Onset: 8 09-15-2017 Chronic Other endocrine disorders (2 sources) Hypoglycemia; Translations: [Hypoglycemia, unspecified] 04-10-2024 Chronic Other gastrointestinal disorders (1 source) Acute constipation; Translations: [Constipation, unspecified] Episodic Other gastrointestinal disorders (14 sources) Diarrhea; Translations: [Diarrhea, unspecified] 11-19-2023 Episodic Other hematologic conditions (1 source) Raised cardiac enzyme or marker; Translations: [Other specified abnormalities of plasma proteins] Episodic Other hematologic conditions (1 source) Other specified abnormalities of plasma proteins; Translations: [Other abnormal blood chemistry] Episodic Other lower respiratory disease (20 sources) Dyspnea; Translations: [Dyspnea, unspecified] 06-12-2022 Episodic Other lower respiratory disease (9 sources) Dyspnea, unspecified; Translations: [Other respiratory abnormalities] Episodic Other nervous system disorders (20 sources) Difficulty walking; Translations: [Difficulty in walking, not elsewhere classified] 06-09-2022 Chronic Other nervous system disorders (16 sources) Chronic pain; Translations: [Other chronic pain] 06-06-2023 Chronic Other nervous system disorders (20 sources) Postoperative pain ; Translations: [Other acute postprocedural pain] 10-20-2019 Episodic Other nervous system disorders (20 sources) Paresthesia of lower extremity; Translations: [Paresthesia of skin] 03-04-2022 Episodic Other nutritional; endocrine; and metabolic disorders (8 sources) Obesity; Translations: [Other obesity due to excess calories] Onset: 0 03-10-2010 Chronic Other nutritional; endocrine; and metabolic disorders (1 source) Body mass index 30+ - obesity; Translations: [Obesity, unspecified] Chronic Other nutritional; endocrine; and metabolic disorders (1 source) Obesity, unspecified; Translations: [Obesity, unspecified] Chronic Other nutritional; endocrine; and metabolic disorders (20 sources) Obesity caused by energy imbalance; Translations: [Other obesity due to excess calories] Onset: 9 09-04-2019 Chronic Other nutritional; endocrine; and metabolic disorders (20 sources) H/O: diabetes mellitus; Translations: [Personal history of other endocrine, nutritional and metabolic disease] 01-07-2023 Episodic Other nutritional; endocrine; and metabolic disorders (1 source) Personal history of other endocrine, nutritional and metabolic disease; Translations: [Personal history of other endocrine, metabolic, and immunity disorders] Episodic Pulmonary heart disease (20 sources) Pulmonary embolism; Translations: [Other pulmonary embolism without acute cor pulmonale] 01-01-2024 Episodic Residual codes; unclassified (20 sources) Hypersomnia; Translations: [Hypersomnia, unspecified] 12-17-2022 Chronic Residual codes; unclassified (20 sources) Bilateral lower limb edema; Translations: [Localized edema] 09-09-2022 Episodic Residual codes; unclassified (17 sources) Localized edema; Translations: [Edema] Episodic Skin and subcutaneous tissue infections (20 sources) Cellulitis of lower leg; Translations: [Cellulitis of right lower limb] 05-27-2018 Episodic Spondylosis; intervertebral disc disorders; other back problems (20 sources) Degeneration of lumbar intervertebral disc; Translations: [Other intervertebral disc degeneration, lumbar region] Onset: 5 03-12-2015 Chronic Sprains and strains (20 sources) Low back strain; Translations: [Sprain of knee] Onset: 2 01-20-2012 Episodic Substance-related disorders (20 sources) Opioid withdrawal; Translations: [Opioid dependence with withdrawal] Onset: 8 07-03-2009 Chronic Substance-related disorders (20 sources) Opioid withdrawal; Translations: [Opioid use, unspecified with withdrawal] 07-01-2021 Episodic Superficial injury; contusion (20 sources) Contusion of knee; Translations: [Contusion of unspecified knee, initial encounter] 06-09-2022 Episodic Thyroid disorders (20 sources) Hypothyroidism; Translations: [Non-toxic uninodular goiter] Onset: 9 08-14-2010 Chronic Transient cerebral ischemia (1 source) Multiple and bilateral precerebral artery syndromes; Translations: [Multiple and bilateral precerebral artery syndromes] Onset: 4 Chronic Unclassified (1 source) Unknown / UNK(Unknown) Onset: 8 Unclassified (1 source) Multiple subsegmental pulmonary emboli without acute cor pulmonale; Translations: [Multiple subsegmental pulmonary emboli without acute cor pulmonale] Onset: 4 Past or Other Problems Problem Classification Problem Date Documented Da te Episodic/Chronic Abdominal hernia (20 sources) Umbilical hernia; Translations: [Umbilical hernia without obstruction or gangrene] Onset: 09-04-2019 09-04-2019 Episodic Abdominal pain (20 sources) Left flank pain; Translations: [Unspecified abdominal pain] Onset: 05-15-2014 Resolved: 06-03-2015 11-02-2018 Episodic Acute and unspecified renal failure (20 sources) Injury of kidney; Translations: [Acute kidney failure, unspecified] Onset: 11-21-2018 11-21-2018 Episodic Allergic reactions (20 sources) Eczema; Translations: [Dermatitis, unspecified] Onset: 12-26-2019 12-26-2019 Episodic Calculus of urinary tract (20 sources) H/O: urinary stone; Translations: [Personal history of urinary calculi] Onset: 10-05-2008 03-05-2009 Episodic Chronic obstructive pulmonary disease and bronchiectasis (1 source) Bronchitis; Translations: [Bronchitis, not specified as acute or chronic] Onset: 07-28-2017 07-28-2017 Episodic Deficiency and other anemia (11 sources) Anemia; Translations: [Anemia, unspecified] Onset: 03-12-2015 Resolved: 02-27-2016 02-27-2016 Episodic Fluid and electrolyte disorders (20 sources) Acute hyponatremia; Translations: [Hypo-osmolality and hyponatremia] Onset: 09-18-2019 09-18-2019 Episodic Genitourinary symptoms and ill-defined conditions (20 sources) Blood in urine; Translations: [Hematuria, unspecified] Onset: 01-22-2017 01-22-2017 Episodic Intestinal infection (2 sources) Infectious gastroenteritis and colitis, unspecified; Translations: [Infectious gastroenteritis and colitis, unspecified] Onset: 11-03-2024 Episodic Mood disorders (19 sources) Depressive disorder; Translations: [Depressive disorder] Onset: 10-05-2008 Resolved: 02-27-2016 Chronic Mycoses (20 sources) Onychomycosis; Translations: [Tinea unguium] Onset: 04-07-2023 04-07-2023 Episodic Nausea and vomiting (20 sources) Vomiting; Translations: [Vomiting, unspecified] Onset: 04-28-2024 08-03-2019 Episodic Nonmalignant breast conditions (20 sources) Lump in left breast; Translations: [Unspecified lump in the left breast, unspecified quadrant] Onset: 12-26-2019 12-26-2019 Episodic Other and unspecified benign neoplasm (20 [...] 06-22-2017 06-22-2017 Episodic Other connective tissue disease (11 sources) Trigger thumb of left hand; Translations: [Trigger thumb, left thumb] Onset: 07-23-2015 Resolved: 01-27-2017 01-27-2017 Episodic Other connective tissue disease (2 sources) Muscle wasting and atrophy, not elsewhere classified, right lower leg; Translations: [Muscle wasting and atrophy, not elsewhere classified, right lower leg] Onset: 11-03-2024 Episodic Other connective tissue disease (1 source) Muscle wasting and atrophy, not elsewhere classified, left lower leg; Translations: [Muscle wasting and atrophy, not elsewhere classified, left lower leg] Onset: 07-05-2024 Episodic Other gastrointestinal disorders (20 sources) Constipation; Translations: [Constipation, unspecified] Onset: 03-12-2015 Resolved: 06-03-2015 03-28-2023 Episodic Other gastrointestinal disorders (13 sources) Diarrhea, unspecified; Translations: [Diarrhea] Onset: 06-06-2024 11-19-2023 Episodic Other inflammatory condition of skin (1 source) Pruritus of skin; Translations: [Pruritus, unspecified] Onset: 08-14-2010 08-14-2010 Episodic Other nervous system disorders (11 sources) Carpal tunnel syndrome of left wrist; Translations: [Carpal tunnel syndrome, left upper limb] Onset: 05-27-2015 Resolved: 01-27-2017 01-27-2017 Chronic Other nervous system disorders (11 sources) Carpal tunnel syndrome of right wrist; [...] [Sleep disorder, unspecified] Onset: 12-07-2008 02-27-2016 Episodic Residual codes; unclassified (20 sources) History of cardiac catheterization; Translations: [Other specified postprocedural states] Onset: 04-24-2022 06-09-2022 Episodic Spondylosis; intervertebral disc disorders; other back problems (20 sources) Radiculopathy due to lumbar intervertebral disc disorder; Translations: [Intervertebral disc disorders with radiculopathy, lumbar region] Onset: 09-18-2019 Episodic Unclassified (20 sources) Readiness finding; Translations: [Desire for detoxification] 07-01-2021 Unclassified (11 sources) Type 2 diabetes mellitus without complication; Translations: [Diabetes mellitus type 2, uncontrolled, without complications] Onset: 10-05-2008 Resolved: 02-27-2016 02-27-2016 Unclassified (1 source) Patient encounter status 02-06-2025 Urinary tract infections (20 sources) Urinary tract infectious disease; Translations: [Urinary tract infection, site not specified] Onset: 11-03-2024 10-17-2022 Episodic Results Test Name Value Interpretation Reference Range Facility Absolute neutrophil countOrd ered By: Zack Choi on 01-22-2025 Absolute neutrophil count 4.6 X10^3/uL 2.0-7.7 [facility] Anion gap [Moles/Vol]Ordered By: Zack Choi on 01-22-2025 Anion gap in Serum or Plasma 12 5-15 [facility] BUN/creatinine ratioOrdered By: Zack Choi on 01-22-2025 BUN/creatinine ratio 24.2 RATIO High 10-20 [facility] Basophil percentageOrdered B y: Zack Choi on 01-22-2025 Basophil percentage 0.6 % 0-1 [facility] Calcium [Mass/Vol]Ordered By : Zack Choi on 01-22-2025 Serum or plasma calcium measurement (mass/volume) 9.4 mg/dL 7.6-11.0 [facility] Carbon dioxide, total [Moles /volume] in Central venous bloodOrdered By: Zack Choi on 01-22-2025 Carbon dioxide, total [Moles/volume] in Central venous blood 22.3 mmol/L 21.0-32.0 [facility] Chloride assayOrdered By: Albert Choi on 01-22-2025 Chloride assay 98 mmol/L 98-108 [facility] Creatinine [Mass/Vol]Ordered By: Zack Choi on 01-22-2025 Serum creatinine measurement (mass/volume) 1.37 mg/dL High 0.70-1.20 [facility] Eosinophil percentageOrdered By: Zack Choi on 01-22-2025 Eosinophil percentage 1.0 % 0-5 [facility] Erythrocyte distribution wid th (RBC) [Ratio]Ordered By: Zack Choi on 01-22-2025 Erythrocyte distribution width ratio 14.1 % 11.6-14.6 [facility] Erythrocyte distribution wid th standard deviationOrdered By: Zack Choi on 01-22-2025 Erythrocyte distribution width standard deviation 44.8 fl High 35.1-43.9 [facility] Estimation of creatinine jacqui aranceOrdered By: Zack Choi on 01-22-2025 Estimation of creatinine clearance 43.47 ml/min Low 50-250 [facility] GFR/1.73 sq M.predicted adama g non-blacks MDRD (S/P/Bld) [Vol rate/Area]Ordered By: Zack Choi on 01-22-2025 Glomerular filtration rate (GFR) estimation/1.73 sq m using serum, plasma, or whole b 44 Low >60 [facility] Glucose [Mass/Vol]Ordered By : Zack Choi on 01-22-2025 Serum glucose measurement (mass/volume) 245 mg/dL High 70-99 [facility] Hematocrit Auto (Bld) [Volum e fraction]Ordered By: Zack Choi on 01-22-2025 Automated blood hematocrit (percentage) 37.0 % 37-47 [facility] Hemoglobin measurementOrdere d By: Zack Choi on 01-22-2025 Hemoglobin measurement 12.1 g/dL 12.0-15.0 [facility] Immature granulocytes/100 WB C Auto (Bld)Ordered By: Zack Choi on 01-22-2025 Automated immature granulocyte percentage 1.000 % High 0.0-0.9 [facility] Lymphocytes Auto (Unsp spec) [#/Vol]Ordered By: Zack Choi on 01-22-2025 Absolute lymphocyte count 2.95 X10^3/uL 0.83-4. 51 [facility] Lymphocytes/100 WBC Auto (Un sp spec)Ordered By: Zack Choi on 01-22-2025 Automated lymphocyte count as percentage of total leukocytes 35.8 % 19-41 [facility] MCV (RBC) [Entitic vol]Order ed By: Zack Choi on 01-22-2025 MCV (mean corpuscular volume) determination 87.5 fL 81-99 [facility] Mean corpuscular hemoglobin (MCH) determinationOrdered By: Zack Choi on 01-22-2025 Mean corpuscular hemoglobin (MCH) determination 28.6 pg 27.0-32.0 [facility] Mean corpuscular hemoglobin concentration (MCHC) determinationOrdered By: Zack Choi on 01-22-2025 Mean corpuscular hemoglobin concentration (MCHC) determination 32.7 g/dL 32-36 [facility] Mean platelet volume determi nationOrdered By: Zack Choi on 01-22-2025 Mean platelet volume determination 9.6 fl 6.2-12.0 [facility] Monocyte percentageOrdered B y: Zack Choi on 01-22-2025 Monocyte percentage 5.6 % 0-10 [facility] Neutrophil percentageOrdered By: Zack Choi on 01-22-2025 Neutrophil percentage 56.0 % 47-70 [facility] No Panel InformationOrdered By: Zack Choi on 01-22-2025 54 ng/L High <14 [facility] Nucleated red blood cell per centageOrdered By: Zack Choi on 01-22-2025 Nucleated red blood cell percentage 0 % 0-5 [facility] Platelet countOrdered By: Albert Choi on 01-22-2025 Platelet count 341 K/mm3 150-450 [facility] Potassium (Unsp spec) [Mass/ Vol]Ordered By: Zack Choi on 01-22-2025 Potassium measurement (mass/volume) 4.4 mmol/L 3.3-5.1 [facility] RBC Auto (Bld) [#/Vol]Ordere d By: Zack Choi on 01-22-2025 Automated blood erythrocyte count 4.23 M/mm3 4.2-5.4 [facility] Sodium levelOrdered By: Sherman Choi on 01-22-2025 Sodium level 133 mmol/L 133-145 [facility] Troponin T.cardiac High sens itivity method [Mass/Vol]Ordered By: Zack Choi on 01-22-2025 Troponin T.cardiac [Mass/volume] in Serum or Plasma by High sensitivity method 48 ng/L High <14 [facility] Urea nitrogen [Mass/Vol]Orde red By: Zack Choi on 01-22-2025 Serum or plasma urea nitrogen measurement (mass/volume) 33 mg/dL High 4-19 [facility] White blood cell (WBC) count Ordered By: Zack Choi on 01-22-2025 White blood cell (WBC) count 8.2 K/mm3 4.4-11.0 [facility] HbA1c (Bld) [Mass fraction]O rdered By: Lizet Linares on 01-05-2025 Hemoglobin A1c percentage 10.2 % >5.7 [facility] Creatinine (U) [Mass/Vol]Ord ered By: Lizet Linares on 12-07-2024 Urine creatinine measurement (mass/volume) 38.20 mg/dL NO RANGE EST. [facility] Random urine microalbumin me asurementOrdered By: Lizet Linares on 12-07-2024 Random urine microalbumin measurement 9.2 mg/L NO RANGE EST. [facility] Urine albumin/creatinine rat io for detection of microalbuminuriaOrdered By: Lizet Linares on 12-07-2024 Urine albumin/creatinine ratio for detection of microalbuminuria 24.0 mg/g CRE <30 [facility] Cholesterol [Mass/Vol]Ordere d By: Lizet Linares on 11-30-2024 Serum or plasma cholesterol measurement (mass/volume) 91 mg/dL <200 [facility] High density lipoprotein (HD L) measurementOrdered By: Lizet Linares on 11-30-2024 High density lipoprotein (HDL) measurement 29 mg/dL Low >40 [facility] Low density lipoprotein (LDL ) cholesterol measurementOrdered By: Lizet Linares on 11-30-2024 Low density lipoprotein (LDL) cholesterol measurement 24 mg/dL 0-130 [facility] TSH QnOrdered By: Lizet Linares on 11-30-2024 Serum or plasma thyroid stimulating hormone (TSH) measurement (units/volume) 2.550 uIU/mL 0.358-3.74 0 [facility] Triglycerides measurementOrd ered By: Lizet Linares on 11-30-2024 Triglycerides measurement 191 mg/dL <199 [facility] Very low density lipoprotein (VLDL) cholesterol measurementOrdered By: Lizet Linares on 11-30-2024 Very low density lipoprotein (VLDL) cholesterol measurement 38 mg/dL 5-40 [facility] Absolute neutrophil countOrd ered By: Lizet Linares on 11-24-2024 Absolute neutrophil count 4.1 X10^3/uL 2.0-7.7 [facility] Basophil percentageOrdered B y: Lizet Linares on 11-24-2024 Basophil percentage 0.6 % 0-1 [facility] Blood urea nitrogen (BUN)/cr eatinine ratioOrdered By: Lizet Linares on 11-24-2024 Blood urea nitrogen (BUN)/creatinine ratio 22.2 RATIO High 10-20 [facility] Calcium [Mass/Vol]Ordered By : Lizet Linares on 11-24-2024 Serum or plasma calcium measurement (mass/volume) 9.2 mg/dL 8.5-10.1 [facility] Carbon dioxide measurementOr dered By: Lizet Linares on 11-24-2024 Carbon dioxide measurement 27.0 mmol/L 21.0-32.0 [facility] Chloride measurementOrdered By: Lizet Linares on 11-24-2024 Chloride measurement 98 mmol/L 98-107 [facility] Creatinine [Mass/Vol]Ordered By: Lizet Linares on 11-24-2024 Serum or plasma creatinine measurement (mass/volume) 1.53 mg/dL High 0.55-1.02 [facility] Eosinophil percentageOrdered By: Lizet Linares on 11-24-2024 Eosinophil percentage 1.5 % 0-5 [facility] Erythrocyte distribution wid th (RBC) [Ratio]Ordered By: Lizet Linares on 11-24-2024 Erythrocyte distribution width ratio 13.9 % 11.6-14.6 [facility] Erythrocyte distribution wid th standard deviationOrdered By: Lizet Linares on 11-24-2024 Erythrocyte distribution width standard deviation 45.1 fl High 35.1-43.9 [facility] Estimated glomerular filtrat ion rate (GFR) AmericanOrdered By: Lizet Linares on 11-24-2024 Estimated glomerular filtration rate (GFR) 44 mL/min Low >60 [facility] Glomerular filtration rate ( GFR) estimationOrdered By: Lizet Linares on 11-24-2024 Glomerular filtration rate (GFR) estimation 37 mL/min Low >60 [facility] Glucose measurementOrdered B y: Lizet Linares on 11-24-2024 Glucose measurement 402 mg/dL High 74-106 [facility] Hematocrit Auto (Bld) [Volum e fraction]Ordered By: Lizet Linares on 11-24-2024 Automated blood hematocrit (percentage) 32.9 % Low 37-47 [facility] Hemoglobin measurementOrdere d By: Lizet Linares on 11-24-2024 Hemoglobin measurement 10.2 g/dL Low 12.0-15.0 [facility] Immature granulocytes/100 WB C Auto (Bld)Ordered By: Lizet Linares on 11-24-2024 Automated immature granulocyte percentage 0.600 % 0.0-0.9 [facility] Lymphocytes Auto (Unsp spec) [#/Vol]Ordered By: Lizet Linares on 11-24-2024 Absolute lymphocyte count 2.20 X10^3/uL 0.83-4. 51 [facility] Lymphocytes/100 WBC Auto (Un sp spec)Ordered By: Lizet Linares on 11-24-2024 Automated lymphocyte count as percentage of total leukocytes 32.2 % 19-41 [facility] MCV (RBC) [Entitic vol]Order ed By: Lizet Linares on 11-24-2024 MCV (mean corpuscular volume) determination 89.2 fL 81-99 [facility] Mean corpuscular hemoglobin (MCH) determinationOrdered By: Lizet Linares on 11-24-2024 Mean corpuscular hemoglobin (MCH) determination 27.6 pg 27.0-32.0 [facility] Mean corpuscular hemoglobin concentration (MCHC) determinationOrdered By: Lizet Linares on 11-24-2024 Mean corpuscular hemoglobin concentration (MCHC) determination 31.0 g/dL Low 32-36 [facility] Mean platelet volume determi nationOrdered By: Lizet Linares on 11-24-2024 Mean platelet volume determination 9.3 fl 6.2-12.0 [facility] Monocyte percentageOrdered B y: Lizet Linares on 11-24-2024 Monocyte percentage 5.1 % 0-10 [facility] Neutrophil percentageOrdered By: Lizet Linares on 11-24-2024 Neutrophil percentage 60.0 % 47-70 [facility] Nucleated red blood cell per centageOrdered By: Lizet Linares on 11-24-2024 Nucleated red blood cell percentage 0 % 0-5 [facility] Platelet countOrdered By: Junie Linares on 11-24-2024 Platelet count 311 K/mm3 150-450 [facility] Potassium measurementOrdered By: Lizet Linares on 11-24-2024 Potassium measurement 4.7 mmol/L 3.5-5.1 [facility] RBC Auto (Bld) [#/Vol]Ordere d By: Lizet Linares on 11-24-2024 Automated blood erythrocyte count 3.69 M/mm3 Low 4.2-5.4 [facility] Serum anion gap measurementO rdered By: Lizet Linares on 01-31-2025 Serum anion gap measurement 6 5-15 [facility] Sodium levelOrdered By: Holly Linares on 11-24-2024 Sodium level 131 mmol/L Low 136-145 [facility] Urea nitrogen [Mass/Vol]Orde red By: Lizet Linares on 11-24-2024 Serum or plasma urea nitrogen measurement (mass/volume) 34 mg/dL High 7-18 [facility] White blood cell (WBC) count Ordered By: Lizet Linares on 11-24-2024 White blood cell (WBC) count 6.8 K/mm3 4.4-11.0 [facility] Absolute neutrophil countOrd ered By: Lizet Linares on 11-17-2024 Absolute neutrophil count 3.2 X10^3/uL 2.0-7.7 [facility] Basophil percentageOrdered B y: Lizet Linares on 11-17-2024 Basophil percentage 0.7 % 0-1 [facility] Blood urea nitrogen (BUN)/cr eatinine ratioOrdered By: Lizet Linares on 11-17-2024 Blood urea nitrogen (BUN)/creatinine ratio 22.6 RATIO High 10-20 [facility] Calcium [Mass/Vol]Ordered By : Lizet Linares on 11-17-2024 Serum or plasma calcium measurement (mass/volume) 8.6 mg/dL 8.5-10.1 [facility] Carbon dioxide measurementOr dered By: Lizet Linares on 11-17-2024 Carbon dioxide measurement 26.0 mmol/L 21.0-32.0 [facility] Chloride measurementOrdered By: Lizet Linares on 11-17-2024 Chloride measurement 103 mmol/L 98-107 [facility] Creatinine [Mass/Vol]Ordered By: Lizet Linares on 11-17-2024 Serum or plasma creatinine measurement (mass/volume) 1.37 mg/dL High 0.55-1.02 [facility] Eosinophil percentageOrdered By: Lizet Linares on 11-17-2024 Eosinophil percentage 1.5 % 0-5 [facility] Erythrocyte distribution wid th (RBC) [Ratio]Ordered By: Lizet Linares on 11-17-2024 Erythrocyte distribution width ratio 13.8 % 11.6-14.6 [facility] Erythrocyte distribution wid th standard deviationOrdered By: Lizet Linares on 11-17-2024 Erythrocyte distribution width standard deviation 44.4 fl High 35.1-43.9 [facility] Estimated glomerular filtrat ion rate (GFR) AmericanOrdered By: Lizet Linares on 11-17-2024 Estimated glomerular filtration rate (GFR) 50 mL/min Low >60 [facility] Glomerular filtration rate ( GFR) estimationOrdered By: Lizet Linares on 11-17-2024 Glomerular filtration rate (GFR) estimation 42 mL/min Low >60 [facility] Glucose measurementOrdered B y: Lizet Linares on 11-17-2024 Glucose measurement 304 mg/dL High 74-106 [facility] Hematocrit Auto (Bld) [Volum e fraction]Ordered By: Lizet Linares on 11-17-2024 Automated blood hematocrit (percentage) 32.3 % Low 37-47 [facility] Hemoglobin measurementOrdere d By: Lizet Linares on 11-17-2024 Hemoglobin measurement 10.1 g/dL Low 12.0-15.0 [facility] Immature granulocytes/100 WB C Auto (Bld)Ordered By: Lizet Linares on 11-17-2024 Automated immature granulocyte percentage 0.300 % 0.0-0.9 [facility] Lymphocytes Auto (Unsp spec) [#/Vol]Ordered By: Lizet Linares on 11-17-2024 Absolute lymphocyte count 2.18 X10^3/uL 0.83-4. 51 [facility] Lymphocytes/100 WBC Auto (Un sp spec)Ordered By: Lizet Linares on 11-17-2024 Automated lymphocyte count as percentage of total leukocytes 36.9 % 19-41 [facility] MCV (RBC) [Entitic vol]Order ed By: Lizet Linares on 11-17-2024 MCV (mean corpuscular volume) determination 87.5 fL 81-99 [facility] Mean corpuscular hemoglobin (MCH) determinationOrdered By: Lizet Linares on 11-17-2024 Mean corpuscular hemoglobin (MCH) determination 27.4 pg 27.0-32.0 [facility] Mean corpuscular hemoglobin concentration (MCHC) determinationOrdered By: Lizet Linares on 11-17-2024 Mean corpuscular hemoglobin concentration (MCHC) determination 31.3 g/dL Low 32-36 [facility] Mean platelet volume determi nationOrdered By: Lizet Linares on 11-17-2024 Mean platelet volume determination 9.4 fl 6.2-12.0 [facility] Monocyte percentageOrdered B y: Lizet Linares on 11-17-2024 Monocyte percentage 5.8 % 0-10 [facility] Neutrophil percentageOrdered By: Lizet Linares on 11-17-2024 Neutrophil percentage 54.8 % 47-70 [facility] Nucleated red blood cell per centageOrdered By: Lizet Linares on 11-17-2024 Nucleated red blood cell percentage 0 % 0-5 [facility] Platelet countOrdered By: Junie Linares on 11-17-2024 Platelet count 309 K/mm3 150-450 [facility] Potassium measurementOrdered By: Lizet Linares on 11-17-2024 Potassium measurement 4.3 mmol/L 3.5-5.1 [facility] RBC Auto (Bld) [#/Vol]Ordere d By: Lizet Linares on 11-17-2024 Automated blood erythrocyte count 3.69 M/mm3 Low 4.2-5.4 [facility] Serum anion gap measurementO rdered By: Lizet Linares on 11-17-2024 Serum anion gap measurement 6 5-15 [facility] Sodium levelOrdered By: Holly Linares on 11-17-2024 Sodium level 135 mmol/L Low 136-145 [facility] Urea nitrogen [Mass/Vol]Orde red By: Lizet Linares on 11-17-2024 Serum or plasma urea nitrogen measurement (mass/volume) 31 mg/dL High 7-18 [facility] White blood cell (WBC) count Ordered By: Lizet Linares on 11-17-2024 White blood cell (WBC) count 5.9 K/mm3 4.4-11.0 [facility] Absolute neutrophil countOrd ered By: Lizet Linares on 11-10-2024 Absolute neutrophil count 4.5 X10^3/uL 2.0-7.7 [facility] Basophil percentageOrdered B y: Lizet Linares on 11-10-2024 Basophil percentage 0.7 % 0-1 [facility] Blood urea nitrogen (BUN)/cr eatinine ratioOrdered By: Lizet Linares on 11-10-2024 Blood urea nitrogen (BUN)/creatinine ratio 16.4 RATIO 10-20 [facility] Calcium [Mass/Vol]Ordered By : Lizet Lianres on 11-10-2024 Serum or plasma calcium measurement (mass/volume) 9.1 mg/dL 8.5-10.1 [facility] Carbon dioxide measurementOr dered By: Lizet Linares on 11-10-2024 Carbon dioxide measurement 27.0 mmol/L 21.0-32.0 [facility] Chloride measurementOrdered By: Lizet Linares on 11-10-2024 Chloride measurement 100 mmol/L 98-107 [facility] Creatinine [Mass/Vol]Ordered By: Lizet Linares on 11-10-2024 Serum or plasma creatinine measurement (mass/volume) 1.40 mg/dL High 0.55-1.02 [facility] Eosinophil percentageOrdered By: Lizet Linares on 11-10-2024 Eosinophil percentage 1.1 % 0-5 [facility] Erythrocyte distribution wid th (RBC) [Ratio]Ordered By: Lizet Linares on 11-10-2024 Erythrocyte distribution width ratio 13.8 % 11.6-14.6 [facility] Erythrocyte distribution wid th standard deviationOrdered By: Lizet Linares on 11-10-2024 Erythrocyte distribution width standard deviation 45.1 fl High 35.1-43.9 [facility] Estimated glomerular filtrat ion rate (GFR) AmericanOrdered By: Lizet Linares on 11-10-2024 Estimated glomerular filtration rate (GFR) 49 mL/min Low >60 [facility] Glomerular filtration rate ( GFR) estimationOrdered By: Lizet Linares on 11-10-2024 Glomerular filtration rate (GFR) estimation 41 mL/min Low >60 [facility] Glucose measurementOrdered B y: Lizet Linares on 11-10-2024 Glucose measurement 342 mg/dL High 74-106 [facility] Hematocrit Auto (Bld) [Volum e fraction]Ordered By: Lizet Linares on 11-10-2024 Automated blood hematocrit (percentage) 32.9 % Low 37-47 [facility] Hemoglobin measurementOrdere d By: Lizet Linares on 11-10-2024 Hemoglobin measurement 10.4 g/dL Low 12.0-15.0 [facility] Immature granulocytes/100 WB C Auto (Bld)Ordered By: Lizet Linares on 11-10-2024 Automated immature granulocyte percentage 0.600 % 0.0-0.9 [facility] Lymphocytes Auto (Unsp spec) [#/Vol]Ordered By: Lizet Linares on 11-10-2024 Absolute lymphocyte count 2.01 X10^3/uL 0.83-4. 51 [facility] Lymphocytes/100 WBC Auto (Un sp spec)Ordered By: Lizet Linares on 11-10-2024 Automated lymphocyte count as percentage of total leukocytes 28.2 % 19-41 [facility] MCV (RBC) [Entitic vol]Order ed By: Lizet Linares on 11-10-2024 MCV (mean corpuscular volume) determination 88.9 fL 81-99 [facility] Mean corpuscular hemoglobin (MCH) determinationOrdered By: Lizet Linares on 11-10-2024 Mean corpuscular hemoglobin (MCH) determination 28.1 pg 27.0-32.0 [facility] Mean corpuscular hemoglobin concentration (MCHC) determinationOrdered By: Lizet Linares on 11-10-2024 Mean corpuscular hemoglobin concentration (MCHC) determination 31.6 g/dL Low 32-36 [facility] Mean platelet volume determi nationOrdered By: Lizet Linares on 11-10-2024 Mean platelet volume determination 10.0 fl 6.2-12.0 [facility] Monocyte percentageOrdered B y: Lizet Linares on 11-10-2024 Monocyte percentage 6.0 % 0-10 [facility] Neutrophil percentageOrdered By: Lizet Linares on 11-10-2024 Neutrophil percentage 63.4 % 47-70 [facility] Nucleated red blood cell per centageOrdered By: Lizet Linares on 11-10-2024 Nucleated red blood cell percentage 0 % 0-5 [facility] Platelet countOrdered By: Junie Linares on 11-10-2024 Platelet count 334 K/mm3 150-450 [facility] Potassium measurementOrdered By: Lizet Linares on 11-10-2024 Potassium measurement 4.4 mmol/L 3.5-5.1 [facility] RBC Auto (Bld) [#/Vol]Ordere d By: Lizet Linares on 11-10-2024 Automated blood erythrocyte count 3.70 M/mm3 Low 4.2-5.4 [facility] Serum anion gap measurementO rdered By: Lizet Linares on 11-10-2024 Serum anion gap measurement 7 5-15 [facility] Sodium levelOrdered By: Holly Linares on 11-10-2024 Sodium level 134 mmol/L Low 136-145 [facility] Urea nitrogen [Mass/Vol]Orde red By: Lizet Linares on 11-10-2024 Serum or plasma urea nitrogen measurement (mass/volume) 23 mg/dL High 7-18 [facility] White blood cell (WBC) count Ordered By: Lizet Linares on 11-10-2024 White blood cell (WBC) count 7.1 K/mm3 4.4-11.0 [facility] Absolute neutrophil countOrd ered By: Lizet Linares on 11-03-2024 Absolute neutrophil count 3.0 X10^3/uL 2.0-7.7 [facility] Basophil percentageOrdered B y: Lizet Linares on 11-03-2024 Basophil percentage 0.5 % 0-1 [facility] Blood urea nitrogen (BUN)/cr eatinine ratioOrdered By: Lizet Linares on 11-03-2024 Blood urea nitrogen (BUN)/creatinine ratio 21.3 RATIO High 10-20 [facility] Calcium [Mass/Vol]Ordered By : Lizet Linares on 11-03-2024 Serum or plasma calcium measurement (mass/volume) 9.1 mg/dL 8.5-10.1 [facility] Carbon dioxide measurementOr dered By: Lizet Linares on 11-03-2024 Carbon dioxide measurement 26.0 mmol/L 21.0-32.0 [facility] Chloride measurementOrdered By: Lizet Linares on 11-03-2024 Chloride measurement 100 mmol/L 98-107 [facility] Creatinine [Mass/Vol]Ordered By: Lizet Linares on 11-03-2024 Serum or plasma creatinine measurement (mass/volume) 1.27 mg/dL High 0.55-1.02 [facility] Eosinophil percentageOrdered By: Lizet Linares on 11-03-2024 Eosinophil percentage 2.4 % 0-5 [facility] Erythrocyte distribution wid th (RBC) [Ratio]Ordered By: Lizet Linares on 11-03-2024 Erythrocyte distribution width ratio 13.9 % 11.6-14.6 [facility] Erythrocyte distribution wid th standard deviationOrdered By: Lizet Linares on 11-03-2024 Erythrocyte distribution width standard deviation 45.0 fl High 35.1-43.9 [facility] Estimated glomerular filtrat ion rate (GFR) AmericanOrdered By: Lizet Linares on 11-03-2024 Estimated glomerular filtration rate (GFR) 55 mL/min Low >60 [facility] Glomerular filtration rate ( GFR) estimationOrdered By: Lizet Linares on 11-03-2024 Glomerular filtration rate (GFR) estimation 45 mL/min Low >60 [facility] Glucose measurementOrdered B y: Lizet Linares on 11-03-2024 Glucose measurement 352 mg/dL High 74-106 [facility] Hematocrit Auto (Bld) [Volum e fraction]Ordered By: Lizet Linares on 11-03-2024 Automated blood hematocrit (percentage) 33.0 % Low 37-47 [facility] Hemoglobin measurementOrdere d By: Lizet Linares on 11-03-2024 Hemoglobin measurement 10.2 g/dL Low 12.0-15.0 [facility] Immature granulocytes/100 WB C Auto (Bld)Ordered By: Lizet Linares on 11-03-2024 Automated immature granulocyte percentage 0.500 % 0.0-0.9 [facility] Lymphocytes Auto (Unsp spec) [#/Vol]Ordered By: Lizet Linares on 11-03-2024 Absolute lymphocyte count 1.95 X10^3/uL 0.83-4. 51 [facility] Lymphocytes/100 WBC Auto (Un sp spec)Ordered By: Lizet Linares on 11-03-2024 Automated lymphocyte count as percentage of total leukocytes 35.6 % 19-41 [facility] MCV (RBC) [Entitic vol]Order ed By: Lizet Linares on 11-03-2024 MCV (mean corpuscular volume) determination 89.2 fL 81-99 [facility] Mean corpuscular hemoglobin (MCH) determinationOrdered By: Lizet Linares on 11-03-2024 Mean corpuscular hemoglobin (MCH) determination 27.6 pg 27.0-32.0 [facility] Mean corpuscular hemoglobin concentration (MCHC) determinationOrdered By: Lizet Linares on 11-03-2024 Mean corpuscular hemoglobin concentration (MCHC) determination 30.9 g/dL Low 32-36 [facility] Mean platelet volume determi nationOrdered By: Lizet Linares on 11-03-2024 Mean platelet volume determination 9.6 fl 6.2-12.0 [facility] Monocyte percentageOrdered B y: Lizet Linares on 11-03-2024 Monocyte percentage 6.4 % 0-10 [facility] Neutrophil percentageOrdered By: Lizet Linares on 11-03-2024 Neutrophil percentage 54.6 % 47-70 [facility] Nucleated red blood cell per centageOrdered By: Lizet Linares on 11-03-2024 Nucleated red blood cell percentage 0 % 0-5 [facility] Platelet countOrdered By: Junie Linares on 11-03-2024 Platelet count 331 K/mm3 150-450 [facility] Potassium measurementOrdered By: Lizet Linares on 11-03-2024 Potassium measurement 4.1 mmol/L 3.5-5.1 [facility] RBC Auto (Bld) [#/Vol]Ordere d By: Lizet Linares on 11-03-2024 Automated blood erythrocyte count 3.70 M/mm3 Low 4.2-5.4 [facility] Serum anion gap measurementO rdered By: Lizet Linares on 11-03-2024 Serum anion gap measurement 6 5-15 [facility] Sodium levelOrdered By: Holly Linares on 11-03-2024 Sodium level 133 mmol/L Low 136-145 [facility] Urea nitrogen [Mass/Vol]Orde red By: Lizet Linares on 11-03-2024 Serum or plasma urea nitrogen measurement (mass/volume) 27 mg/dL High 7-18 [facility] White blood cell (WBC) count Ordered By: Lizet Linares on 11-03-2024 White blood cell (WBC) count 5.5 K/mm3 4.4-11.0 [facility] TSH QnOrdered By: Lizet Linares on 11-01-2024 Serum or plasma thyroid stimulating hormone (TSH) measurement (units/volume) 2.030 uIU/mL 0.358-3.74 0 [facility] Absolute neutrophil countOrd ered By: Lizet Linares on 10-27-2024 Absolute neutrophil count 3.1 X10^3/uL 2.0-7.7 [facility] Basophil percentageOrdered B y: Lizet Linares on 10-27-2024 Basophil percentage 0.4 % 0-1 [facility] Blood urea nitrogen (BUN)/cr eatinine ratioOrdered By: Lizet Linares on 10-27-2024 Blood urea nitrogen (BUN)/creatinine ratio 17.7 RATIO 10-20 [facility] Calcium [Mass/Vol]Ordered By : Lizet Linares on 10-27-2024 Serum or plasma calcium measurement (mass/volume) 8.3 mg/dL Low 8.5-10.1 [facility] Carbon dioxide measurementOr dered By: Lizet Linares on 10-27-2024 Carbon dioxide measurement 25.0 mmol/L 21.0-32.0 [facility] Chloride measurementOrdered By: Lizet Linares on 10-27-2024 Chloride measurement 100 mmol/L 98-107 [facility] Creatinine [Mass/Vol]Ordered By: Lizet Linares on 10-27-2024 Serum or plasma creatinine measurement (mass/volume) 1.41 mg/dL High 0.55-1.02 [facility] Eosinophil percentageOrdered By: Lizet Linares on 10-27-2024 Eosinophil percentage 2.4 % 0-5 [facility] Erythrocyte distribution wid th (RBC) [Ratio]Ordered By: Lizet Linares on 10-27-2024 Erythrocyte distribution width ratio 13.9 % 11.6-14.6 [facility] Erythrocyte distribution wid th standard deviationOrdered By: Lizet Linares on 10-27-2024 Erythrocyte distribution width standard deviation 44.4 fl High 35.1-43.9 [facility] Estimated glomerular filtrat ion rate (GFR) AmericanOrdered By: Lizet Linares on 10-27-2024 Estimated glomerular filtration rate (GFR) 49 mL/min Low >60 [facility] Glomerular filtration rate ( GFR) estimationOrdered By: Lizet Linares on 10-27-2024 Glomerular filtration rate (GFR) estimation 40 mL/min Low >60 [facility] Glucose measurementOrdered B y: Lizet Linares on 10-27-2024 Glucose measurement 425 mg/dL High 74-106 [facility] Hematocrit Auto (Bld) [Volum e fraction]Ordered By: Lizet Linares on 10-27-2024 Automated blood hematocrit (percentage) 28.7 % Low 37-47 [facility] Hemoglobin measurementOrdere d By: Lizet Linares on 10-27-2024 Hemoglobin measurement 9.2 g/dL Low 12.0-15.0 [facility] Immature granulocytes/100 WB C Auto (Bld)Ordered By: Lizet Linares on 10-27-2024 Automated immature granulocyte percentage 0.400 % 0.0-0.9 [facility] Lymphocytes Auto (Unsp spec) [#/Vol]Ordered By: Lizet Linares on 10-27-2024 Absolute lymphocyte count 1.77 X10^3/uL 0.83-4. 51 [facility] Lymphocytes/100 WBC Auto (Un sp spec)Ordered By: Lizet Linares on 10-27-2024 Automated lymphocyte count as percentage of total leukocytes 32.8 % 19-41 [facility] MCV (RBC) [Entitic vol]Order ed By: Lizet Linares on 10-27-2024 MCV (mean corpuscular volume) determination 87.8 fL 81-99 [facility] Mean corpuscular hemoglobin (MCH) determinationOrdered By: Lizet Linares on 10-27-2024 Mean corpuscular hemoglobin (MCH) determination 28.1 pg 27.0-32.0 [facility] Mean corpuscular hemoglobin concentration (MCHC) determinationOrdered By: Lizet Linares on 10-27-2024 Mean corpuscular hemoglobin concentration (MCHC) determination 32.1 g/dL 32-36 [facility] Mean platelet volume determi nationOrdered By: Lizet Linares on 10-27-2024 Mean platelet volume determination 10.1 fl 6.2-12.0 [facility] Monocyte percentageOrdered B y: Lizet Linares on 10-27-2024 Monocyte percentage 5.9 % 0-10 [facility] Neutrophil percentageOrdered By: Lizet Linares on 10-27-2024 Neutrophil percentage 58.1 % 47-70 [facility] Nucleated red blood cell per centageOrdered By: Lizet Linares on 10-27-2024 Nucleated red blood cell percentage 0 % 0-5 [facility] Platelet countOrdered By: Junie Linares on 10-27-2024 Platelet count 292 K/mm3 150-450 [facility] Potassium measurementOrdered By: Lizet Linares on 10-27-2024 Potassium measurement 4.0 mmol/L 3.5-5.1 [facility] RBC Auto (Bld) [#/Vol]Ordere d By: Lizet Linares on 10-27-2024 Automated blood erythrocyte count 3.27 M/mm3 Low 4.2-5.4 [facility] Serum anion gap measurementO rdered By: Lizet Linares on 10-27-2024 Serum anion gap measurement 8 5-15 [facility] Sodium levelOrdered By: Holly Linares on 10-27-2024 Sodium level 132 mmol/L Low 136-145 [facility] Urea nitrogen [Mass/Vol]Orde red By: Lizet Linares on 10-27-2024 Serum or plasma urea nitrogen measurement (mass/volume) 25 mg/dL High 7-18 [facility] White blood cell (WBC) count Ordered By: Lizet Linares on 10-27-2024 White blood cell (WBC) count 5.4 K/mm3 4.4-11.0 [facility] ALP [Catalytic activity/Vol] Ordered By: Salvador Campbell on 10-24-2024 Serum or plasma alkaline phosphatase measurement 49 U/L 45-117 [facility] ALT [Catalytic activity/Vol] Ordered By: Salvador Campbell on 10-24-2024 Serum or plasma alanine aminotransferase (ALT) measurement 25 U/L 13-56 [facility] Absolute neutrophil countOrd ered By: Salvador Campbell on 10-24-2024 Absolute neutrophil count 4.0 X10^3/uL 2.0-7.7 [facility] Albumin [Mass/Vol]Ordered By : Salvador Campbell on 10-24-2024 Serum or plasma albumin measurement (mass/volume) 3.0 g/dL Low 3.2-5.0 [facility] Albumin to globulin ratioOrd ered By: Salvador Campbell on 10-24-2024 Albumin to globulin ratio 0.8 RATIO Low 0.9-2.4 [facility] Basophil percentageOrdered B y: Salvador Campbell on 10-24-2024 Basophil percentage 0.7 % 0-1 [facility] Bilirubin, totalOrdered By: Salvador Campbell on 10-24-2024 Bilirubin, total 0.30 mg/dL 0.20-1.00 [facility] Blood urea nitrogen (BUN)/cr eatinine ratioOrdered By: Salvador Campbell on 10-24-2024 Blood urea nitrogen (BUN)/creatinine ratio 21.1 RATIO High 10-20 [facility] Calcium [Mass/Vol]Ordered By : Salvador Campbell on 10-24-2024 Serum or plasma calcium measurement (mass/volume) 8.8 mg/dL 8.5-10.1 [facility] Carbon dioxide measurementOr dered By: Salvador Campbell on 10-24-2024 Carbon dioxide measurement 26.0 mmol/L 21.0-32.0 [facility] Chloride measurementOrdered By: Salvador Capmbell on 10-24-2024 Chloride measurement 100 mmol/L 98-107 [facility] Clarity (U)Ordered By: Natan Campbell on 10-24-2024 Urine clarity Clear Clear [facility] Color (U)Ordered By: Salvador Campbell on 10-24-2024 Urine color determination Yellow Yellow [facility] Creatinine [Mass/Vol]Ordered By: Salvador Campbell on 10-24-2024 Serum or plasma creatinine measurement (mass/volume) 1.28 mg/dL High 0.55-1.02 [facility] Eosinophil percentageOrdered By: Salvador Campbell on 10-24-2024 Eosinophil percentage 2.2 % 0-5 [facility] Epithelial cells.squamous LM Ql (Urine sed)Ordered By: Salvador Campbell on 10-24-2024 Squamous epithelial cells detection in urine sediment by light microscopy 0-5 SEEN /hpf 5-10 [facility] Erythrocyte distribution wid th (RBC) [Ratio]Ordered By: Salvador Campbell on 10-24-2024 Erythrocyte distribution width ratio 13.6 % 11.6-14.6 [facility] Erythrocyte distribution wid th standard deviationOrdered By: Salvador Campbell on 10-24-2024 Erythrocyte distribution width standard deviation 44.1 fl High 35.1-43.9 [facility] Estimated glomerular filtrat ion rate (GFR) AmericanOrdered By: Salvador Campbell on 10-24-2024 Estimated glomerular filtration rate (GFR) 55 mL/min Low >60 [facility] Estimation of creatinine jacqui aranceOrdered By: Salvador Campbell on 10-24-2024 Estimation of creatinine clearance 46.41 ml/min [facility] Glomerular filtration rate ( GFR) estimationOrdered By: Salvador Campbell on 10-24-2024 Glomerular filtration rate (GFR) estimation 45 mL/min Low >60 [facility] Glucose Ql (U)Ordered By: Malachi Campbell on 10-24-2024 Urine glucose detection 250 mg/dl High Normal [facility] Glucose measurementOrdered B y: Salvador Campbell on 10-24-2024 Glucose measurement 328 mg/dL High 74-106 [facility] Hematocrit Auto (Bld) [Volum e fraction]Ordered By: Salvador Campbell on 10-24-2024 Automated blood hematocrit (percentage) 33.6 % Low 37-47 [facility] Hemoglobin measurementOrdere d By: Salvador Campbell on 10-24-2024 Hemoglobin measurement 10.4 g/dL Low 12.0-15.0 [facility] Immature granulocytes/100 WB C Auto (Bld)Ordered By: Salvador Campbell on 10-24-2024 Automated immature granulocyte percentage 0.900 % 0.0-0.9 [facility] Lactic acid measurementOrder ed By: Salvador Campbell on 10-24-2024 Lactic acid measurement 1.7 mmol/L 0.4-2.0 [facility] Lymphocytes Auto (Unsp spec) [#/Vol]Ordered By: Salvador Campbell on 10-24-2024 Absolute lymphocyte count 2.05 X10^3/uL 0.83-4. 51 [facility] Lymphocytes/100 WBC Auto (Un sp spec)Ordered By: Salvador Campbell on 10-24-2024 Automated lymphocyte count as percentage of total leukocytes 30.7 % 19-41 [facility] MCV (RBC) [Entitic vol]Order ed By: Salvador Campbell on 10-24-2024 MCV (mean corpuscular volume) determination 88.9 fL 81-99 [facility] Mean corpuscular hemoglobin (MCH) determinationOrdered By: Salvador Campbell on 10-24-2024 Mean corpuscular hemoglobin (MCH) determination 27.5 pg 27.0-32.0 [facility] Mean corpuscular hemoglobin concentration (MCHC) determinationOrdered By: Salvador Campbell on 10-24-2024 Mean corpuscular hemoglobin concentration (MCHC) determination 31.0 g/dL Low 32-36 [facility] Mean platelet volume determi nationOrdered By: Salvador Campbell on 10-24-2024 Mean platelet volume determination 9.7 fl 6.2-12.0 [facility] Monocyte percentageOrdered B y: Salvador Campbell on 10-24-2024 Monocyte percentage 5.7 % 0-10 [facility] Neutrophil percentageOrdered By: Salvador Campbell on 10-24-2024 Neutrophil percentage 59.8 % 47-70 [facility] No Panel InformationOrdered By: Salvador Campbell on 10-24-2024 32 U/L 15-37 [facility] Nucleated red blood cell per centageOrdered By: Salvador Campbell on 10-24-2024 Nucleated red blood cell percentage 0 % 0-5 [facility] Platelet countOrdered By: Malachi Campbell on 10-24-2024 Platelet count 352 K/mm3 150-450 [facility] Potassium measurementOrdered By: Salvador Campbell on 10-24-2024 Potassium measurement 4.1 mmol/L 3.5-5.1 [facility] Protein Test strip Ql (U)Ord ered By: Salavdor Campbell on 10-24-2024 Urine protein assay by test strip, semi-quantitative 15 mg/dl High Negative [facility] RBC Auto (Bld) [#/Vol]Ordere d By: Salvador Campbell on 10-24-2024 Automated blood erythrocyte count 3.78 M/mm3 Low 4.2-5.4 [facility] Serum anion gap measurementO rdered By: Salvador Campbell on 10-24-2024 Serum anion gap measurement 8 5-15 [facility] Serum globulin measurementOr dered By: Salvador Campbell on 10-24-2024 Serum globulin measurement 3.8 g/dL 2.2-4.2 [facility] Sodium levelOrdered By: Charles Campbell on 10-24-2024 Sodium level 135 mmol/L Low 136-145 [facility] Specific gravity (U) [Rel de nsity]Ordered By: Salvador Campbell on 10-24-2024 Urine specific gravity measurement 1.015 1.002-1.03 0 [facility] Total proteinOrdered By: Roldan Campbell on 10-24-2024 Total protein 6.8 g/dL 6.4-8.2 [facility] Urea nitrogen [Mass/Vol]Orde red By: Salvador Campbell on 10-24-2024 Serum or plasma urea nitrogen measurement (mass/volume) 27 mg/dL High 7-18 [facility] Urine total bilirubin detect ion by test stripOrdered By: Salvador Campbell on 10-24-2024 Urine total bilirubin detection by test strip Negative Negative [facility] Urobilinogen Ql (U)Ordered B y: Salvador Campbell on 10-24-2024 Urine urobilinogen measurement Normal mg/dl Normal [facility] White blood cell (WBC) count Ordered By: Salvador Campbell on 10-24-2024 White blood cell (WBC) count 6.7 K/mm3 4.4-11.0 [facility] White blood cell countOrdere d By: Salvador Campbell on 10-24-2024 White blood cell count 0 SEEN /hpf [facility] pH (U)Ordered By: Padmini on 10-24-2024 Urine pH 6.0 5.0 - 8.0 [facility] Absolute neutrophil countOrd ered By: Lizet Linares on 10-20-2024 Absolute neutrophil count 3.2 X10^3/uL 2.0-7.7 [facility] Basophil percentageOrdered B y: Lizet Linares on 10-20-2024 Basophil percentage 0.7 % 0-1 [facility] Blood urea nitrogen (BUN)/cr eatinine ratioOrdered By: Lizet Linares on 10-20-2024 Blood urea nitrogen (BUN)/creatinine ratio 22.0 RATIO High 10-20 [facility] Calcium [Mass/Vol]Ordered By : Lizet Linares on 10-20-2024 Serum or plasma calcium measurement (mass/volume) 8.4 mg/dL Low 8.5-10.1 [facility] Carbon dioxide measurementOr dered By: Lizet Linares on 10-20-2024 Carbon dioxide measurement 27.0 mmol/L 21.0-32.0 [facility] Chloride measurementOrdered By: Lizet Linares on 10-20-2024 Chloride measurement 102 mmol/L 98-107 [facility] Creatinine [Mass/Vol]Ordered By: Lizet Linares on 10-20-2024 Serum or plasma creatinine measurement (mass/volume) 1.27 mg/dL High 0.55-1.02 [facility] Eosinophil percentageOrdered By: Lizet Linares on 10-20-2024 Eosinophil percentage 3.1 % 0-5 [facility] Erythrocyte distribution wid th (RBC) [Ratio]Ordered By: Lizet Linares on 10-20-2024 Erythrocyte distribution width ratio 13.6 % 11.6-14.6 [facility] Erythrocyte distribution wid th standard deviationOrdered By: Lizet Linares on 10-20-2024 Erythrocyte distribution width standard deviation 44.0 fl High 35.1-43.9 [facility] Estimated glomerular filtrat ion rate (GFR) AmericanOrdered By: Lizet Linares on 10-20-2024 Estimated glomerular filtration rate (GFR) 55 mL/min Low >60 [facility] Glomerular filtration rate ( GFR) estimationOrdered By: Lizet Linares on 10-20-2024 Glomerular filtration rate (GFR) estimation 45 mL/min Low >60 [facility] Glucose measurementOrdered B y: Lizet Linares on 10-20-2024 Glucose measurement 277 mg/dL High 74-106 [facility] Hematocrit Auto (Bld) [Volum e fraction]Ordered By: Lizet Linares on 10-20-2024 Automated blood hematocrit (percentage) 30.6 % Low 37-47 [facility] Hemoglobin measurementOrdere d By: Lizet Linares on 10-20-2024 Hemoglobin measurement 9.6 g/dL Low 12.0-15.0 [facility] Immature granulocytes/100 WB C Auto (Bld)Ordered By: Lizet Linares on 10-20-2024 Automated immature granulocyte percentage 0.300 % 0.0-0.9 [facility] Lymphocytes Auto (Unsp spec) [#/Vol]Ordered By: Lizet Linares on 10-20-2024 Absolute lymphocyte count 2.38 X10^3/uL 0.83-4. 51 [facility] Lymphocytes/100 WBC Auto (Un sp spec)Ordered By: Lizet Linares on 10-20-2024 Automated lymphocyte count as percentage of total leukocytes 38.9 % 19-41 [facility] MCV (RBC) [Entitic vol]Order ed By: Lizet Linares on 10-20-2024 MCV (mean corpuscular volume) determination 88.7 fL 81-99 [facility] Mean corpuscular hemoglobin (MCH) determinationOrdered By: Lizet Linares on 10-20-2024 Mean corpuscular hemoglobin (MCH) determination 27.8 pg 27.0-32.0 [facility] Mean corpuscular hemoglobin concentration (MCHC) determinationOrdered By: Lizet Linares on 10-20-2024 Mean corpuscular hemoglobin concentration (MCHC) determination 31.4 g/dL Low 32-36 [facility] Mean platelet volume determi nationOrdered By: Lizet Linares on 10-20-2024 Mean platelet volume determination 9.8 fl 6.2-12.0 [facility] Monocyte percentageOrdered B y: Lizet Linares on 10-20-2024 Monocyte percentage 5.2 % 0-10 [facility] Neutrophil percentageOrdered By: Lizet Linares on 10-20-2024 Neutrophil percentage 51.8 % 47-70 [facility] Nucleated red blood cell per centageOrdered By: Lizet Linares on 10-20-2024 Nucleated red blood cell percentage 0 % 0-5 [facility] Platelet countOrdered By: Junie Linares on 10-20-2024 Platelet count 325 K/mm3 150-450 [facility] Potassium measurementOrdered By: Lizet Linares on 10-20-2024 Potassium measurement 3.9 mmol/L 3.5-5.1 [facility] RBC Auto (Bld) [#/Vol]Ordere d By: Lizet Linares on 10-20-2024 Automated blood erythrocyte count 3.45 M/mm3 Low 4.2-5.4 [facility] Serum anion gap measurementO rdered By: Lizet Linares on 10-20-2024 Serum anion gap measurement 6 5-15 [facility] Sodium levelOrdered By: Holly Linares on 10-20-2024 Sodium level 135 mmol/L Low 136-145 [facility] Urea nitrogen [Mass/Vol]Orde red By: Lizet Linares on 10-20-2024 Serum or plasma urea nitrogen measurement (mass/volume) 28 mg/dL High 7-18 [facility] White blood cell (WBC) count Ordered By: Lizet Linares on 10-20-2024 White blood cell (WBC) count 6.1 K/mm3 4.4-11.0 [facility] Absolute neutrophil countOrd ered By: Lizet Linares on 10-13-2024 Absolute neutrophil count 3.3 X10^3/uL 2.0-7.7 [facility] Basophil percentageOrdered B y: Lizet Linares on 10-13-2024 Basophil percentage 0.8 % 0-1 [facility] Blood urea nitrogen (BUN)/cr eatinine ratioOrdered By: Lizet Linares on 10-13-2024 Blood urea nitrogen (BUN)/creatinine ratio 13.7 RATIO 10-20 [facility] Calcium [Mass/Vol]Ordered By : Lizet Linares on 10-13-2024 Serum or plasma calcium measurement (mass/volume) 9.0 mg/dL 8.5-10.1 [facility] Carbon dioxide measurementOr dered By: Lizet Linares on 10-13-2024 Carbon dioxide measurement 28.0 mmol/L 21.0-32.0 [facility] Chloride measurementOrdered By: Lizet Linares on 10-13-2024 Chloride measurement 103 mmol/L 98-107 [facility] Creatinine [Mass/Vol]Ordered By: Lizet Linares on 10-13-2024 Serum or plasma creatinine measurement (mass/volume) 1.31 mg/dL High 0.55-1.02 [facility] Eosinophil percentageOrdered By: Lizet Linares on 10-13-2024 Eosinophil percentage 2.5 % 0-5 [facility] Erythrocyte distribution wid th (RBC) [Ratio]Ordered By: Lizet Linares on 10-13-2024 Erythrocyte distribution width ratio 13.8 % 11.6-14.6 [facility] Erythrocyte distribution wid th standard deviationOrdered By: Lizet Linares on 10-13-2024 Erythrocyte distribution width standard deviation 44.6 fl High 35.1-43.9 [facility] Estimated glomerular filtrat ion rate (GFR) AmericanOrdered By: Lizet Linares on 10-13-2024 Estimated glomerular filtration rate (GFR) 53 mL/min Low >60 [facility] Glomerular filtration rate ( GFR) estimationOrdered By: Lizet Linares on 10-13-2024 Glomerular filtration rate (GFR) estimation 44 mL/min Low >60 [facility] Glucose measurementOrdered B y: Lizet Linares on 10-13-2024 Glucose measurement 234 mg/dL High 74-106 [facility] Hematocrit Auto (Bld) [Volum e fraction]Ordered By: Lizet Linares on 10-13-2024 Automated blood hematocrit (percentage) 34.2 % Low 37-47 [facility] Hemoglobin measurementOrdere d By: Lizet Linares on 10-13-2024 Hemoglobin measurement 10.9 g/dL Low 12.0-15.0 [facility] Immature granulocytes/100 WB C Auto (Bld)Ordered By: Lizet Linares on 10-13-2024 Automated immature granulocyte percentage 0.500 % 0.0-0.9 [facility] Lymphocytes Auto (Unsp spec) [#/Vol]Ordered By: Lizet Linares on 10-13-2024 Absolute lymphocyte count 2.10 X10^3/uL 0.83-4. 51 [facility] Lymphocytes/100 WBC Auto (Un sp spec)Ordered By: Lizet Linares on 10-13-2024 Automated lymphocyte count as percentage of total leukocytes 35.3 % 19-41 [facility] MCV (RBC) [Entitic vol]Order ed By: Lizet Linares on 10-13-2024 MCV (mean corpuscular volume) determination 88.6 fL 81-99 [facility] Mean corpuscular hemoglobin (MCH) determinationOrdered By: Lizet Linares on 10-13-2024 Mean corpuscular hemoglobin (MCH) determination 28.2 pg 27.0-32.0 [facility] Mean corpuscular hemoglobin concentration (MCHC) determinationOrdered By: Lizet Linares on 10-13-2024 Mean corpuscular hemoglobin concentration (MCHC) determination 31.9 g/dL Low 32-36 [facility] Mean platelet volume determi nationOrdered By: Lizet Linares on 10-13-2024 Mean platelet volume determination 9.7 fl 6.2-12.0 [facility] Monocyte percentageOrdered B y: Lizet Linares on 10-13-2024 Monocyte percentage 6.2 % 0-10 [facility] Neutrophil percentageOrdered By: Lizet Linares on 10-13-2024 Neutrophil percentage 54.7 % 47-70 [facility] Nucleated red blood cell per centageOrdered By: Lizet Linares on 10-13-2024 Nucleated red blood cell percentage 0 % 0-5 [facility] Platelet countOrdered By: Junie Linares on 10-13-2024 Platelet count 361 K/mm3 150-450 [facility] Potassium measurementOrdered By: Lizet Linares on 10-13-2024 Potassium measurement 3.9 mmol/L 3.5-5.1 [facility] RBC Auto (Bld) [#/Vol]Ordere d By: Lizet Linares on 10-13-2024 Automated blood erythrocyte count 3.86 M/mm3 Low 4.2-5.4 [facility] Serum anion gap measurementO rdered By: Lizet Linares on 10-13-2024 Serum anion gap measurement 5 5-15 [facility] Sodium levelOrdered By: Holly Linares on 10-13-2024 Sodium level 136 mmol/L 136-145 [facility] Urea nitrogen [Mass/Vol]Orde red By: Lizet Linares on 10-13-2024 Serum or plasma urea nitrogen measurement (mass/volume) 18 mg/dL 7-18 [facility] White blood cell (WBC) count Ordered By: Lizet Linares on 10-13-2024 White blood cell (WBC) count 6.0 K/mm3 4.4-11.0 [facility] Absolute neutrophil countOrd ered By: Lizet Linares on 10-06-2024 Absolute neutrophil count 2.8 X10^3/uL 2.0-7.7 [facility] Basophil percentageOrdered B y: Lizet Linares on 10-06-2024 Basophil percentage 0.5 % 0-1 [facility] Blood urea nitrogen (BUN)/cr eatinine ratioOrdered By: Lizet Linares on 10-06-2024 Blood urea nitrogen (BUN)/creatinine ratio 15.5 RATIO 10-20 [facility] Calcium [Mass/Vol]Ordered By : Lizet Linares on 10-06-2024 Serum or plasma calcium measurement (mass/volume) 8.6 mg/dL 8.5-10.1 [facility] Carbon dioxide measurementOr dered By: Lizet Linares on 10-06-2024 Carbon dioxide measurement 26.0 mmol/L 21.0-32.0 [facility] Chloride measurementOrdered By: Lizet Linares on 10-06-2024 Chloride measurement 106 mmol/L 98-107 [facility] Creatinine [Mass/Vol]Ordered By: Lizet Linares on 10-06-2024 Serum or plasma creatinine measurement (mass/volume) 1.16 mg/dL High 0.55-1.02 [facility] Eosinophil percentageOrdered By: Lizet Linares on 10-06-2024 Eosinophil percentage 3.4 % 0-5 [facility] Erythrocyte distribution wid th (RBC) [Ratio]Ordered By: Lizet Linares on 10-06-2024 Erythrocyte distribution width ratio 14.0 % 11.6-14.6 [facility] Erythrocyte distribution wid th standard deviationOrdered By: Lizet Linares on 10-06-2024 Erythrocyte distribution width standard deviation 45.4 fl High 35.1-43.9 [facility] Estimated glomerular filtrat ion rate (GFR) AmericanOrdered By: Lizet Linares on 10-06-2024 Estimated glomerular filtration rate (GFR) 61 mL/min >60 [facility] Glomerular filtration rate ( GFR) estimationOrdered By: Lizet Linares on 10-06-2024 Glomerular filtration rate (GFR) estimation 50 mL/min Low >60 [facility] Glucose measurementOrdered B y: Lizet Linares on 10-06-2024 Glucose measurement 204 mg/dL High 74-106 [facility] Hematocrit Auto (Bld) [Volum e fraction]Ordered By: Lizet Linares on 10-06-2024 Automated blood hematocrit (percentage) 30.7 % Low 37-47 [facility] Hemoglobin measurementOrdere d By: Lizet Linares on 10-06-2024 Hemoglobin measurement 9.8 g/dL Low 12.0-15.0 [facility] Immature granulocytes/100 WB C Auto (Bld)Ordered By: Lizet Linares on 10-06-2024 Automated immature granulocyte percentage 0.300 % 0.0-0.9 [facility] Lymphocytes Auto (Unsp spec) [#/Vol]Ordered By: Lizet Linares on 10-06-2024 Absolute lymphocyte count 2.46 X10^3/uL 0.83-4. 51 [facility] Lymphocytes/100 WBC Auto (Un sp spec)Ordered By: Lizet Linares on 10-06-2024 Automated lymphocyte count as percentage of total leukocytes 41.8 % High 19-41 [facility] MCV (RBC) [Entitic vol]Order ed By: Lizet Linares on 10-06-2024 MCV (mean corpuscular volume) determination 89.2 fL 81-99 [facility] Mean corpuscular hemoglobin (MCH) determinationOrdered By: Lizet Linares on 10-06-2024 Mean corpuscular hemoglobin (MCH) determination 28.5 pg 27.0-32.0 [facility] Mean corpuscular hemoglobin concentration (MCHC) determinationOrdered By: Lizet Linares on 10-06-2024 Mean corpuscular hemoglobin concentration (MCHC) determination 31.9 g/dL Low 32-36 [facility] Mean platelet volume determi nationOrdered By: Lizet Linares on 10-06-2024 Mean platelet volume determination 9.4 fl 6.2-12.0 [facility] Monocyte percentageOrdered B y: Lizet Linares on 10-06-2024 Monocyte percentage 7.1 % 0-10 [facility] Neutrophil percentageOrdered By: Lizet Linares on 10-06-2024 Neutrophil percentage 46.9 % Low 47-70 [facility] Nucleated red blood cell per centageOrdered By: Lizet Linares on 10-06-2024 Nucleated red blood cell percentage 0 % 0-5 [facility] Platelet countOrdered By: Junie Linares on 10-06-2024 Platelet count 330 K/mm3 150-450 [facility] Potassium measurementOrdered By: Lizet Linares on 10-06-2024 Potassium measurement 3.9 mmol/L 3.5-5.1 [facility] RBC Auto (Bld) [#/Vol]Ordere d By: Lizet Linares on 10-06-2024 Automated blood erythrocyte count 3.44 M/mm3 Low 4.2-5.4 [facility] Serum anion gap measurementO rdered By: Lizet Linares on 10-06-2024 Serum anion gap measurement 6 5-15 [facility] Sodium levelOrdered By: Holly Linares on 10-06-2024 Sodium level 138 mmol/L 136-145 [facility] Urea nitrogen [Mass/Vol]Orde red By: Lizet Linares on 10-06-2024 Serum or plasma urea nitrogen measurement (mass/volume) 18 mg/dL 7-18 [facility] White blood cell (WBC) count Ordered By: Lizet Linares on 10-06-2024 White blood cell (WBC) count 5.9 K/mm3 4.4-11.0 [facility] Absolute neutrophil countOrd ered By: Lizet Linares on 09-29-2024 Absolute neutrophil count 3.1 X10^3/uL 2.0-7.7 [facility] Basophil percentageOrdered B y: Lizet Linares on 09-29-2024 Basophil percentage 0.5 % 0-1 [facility] Blood urea nitrogen (BUN)/cr eatinine ratioOrdered By: Lizet Linares on 09-29-2024 Blood urea nitrogen (BUN)/creatinine ratio 18.3 RATIO 10-20 [facility] Calcium [Mass/Vol]Ordered By : Lizet Linares on 09-29-2024 Serum or plasma calcium measurement (mass/volume) 8.6 mg/dL 8.5-10.1 [facility] Carbon dioxide measurementOr dered By: Lizet Linares on 09-29-2024 Carbon dioxide measurement 26.0 mmol/L 21.0-32.0 [facility] Chloride measurementOrdered By: Lizet Linares on 09-29-2024 Chloride measurement 105 mmol/L 98-107 [facility] Creatinine [Mass/Vol]Ordered By: Lizet Linares on 09-29-2024 Serum or plasma creatinine measurement (mass/volume) 1.20 mg/dL High 0.55-1.02 [facility] Eosinophil percentageOrdered By: Lizet Linares on 09-29-2024 Eosinophil percentage 1.7 % 0-5 [facility] Erythrocyte distribution wid th (RBC) [Ratio]Ordered By: Lizet Linares on 09-29-2024 Erythrocyte distribution width ratio 14.1 % 11.6-14.6 [facility] Erythrocyte distribution wid th standard deviationOrdered By: Lizet Linares on 09-29-2024 Erythrocyte distribution width standard deviation 45.8 fl High 35.1-43.9 [facility] Estimated glomerular filtrat ion rate (GFR) AmericanOrdered By: Lizet Linares on 09-29-2024 Estimated glomerular filtration rate (GFR) 59 mL/min Low >60 [facility] Glomerular filtration rate ( GFR) estimationOrdered By: Lizet Linares on 09-29-2024 Glomerular filtration rate (GFR) estimation 49 mL/min Low >60 [facility] Glucose measurementOrdered B y: Lizet Linares on 09-29-2024 Glucose measurement 193 mg/dL High 74-106 [facility] Hematocrit Auto (Bld) [Volum e fraction]Ordered By: Lizet Linares on 09-29-2024 Automated blood hematocrit (percentage) 30.8 % Low 37-47 [facility] Hemoglobin measurementOrdere d By: Lizet Linares on 09-29-2024 Hemoglobin measurement 9.8 g/dL Low 12.0-15.0 [facility] Immature granulocytes/100 WB C Auto (Bld)Ordered By: Lizet Linares on 09-29-2024 Automated immature granulocyte percentage 0.500 % 0.0-0.9 [facility] Lymphocytes Auto (Unsp spec) [#/Vol]Ordered By: Lziet Linares on 09-29-2024 Absolute lymphocyte count 2.13 X10^3/uL 0.83-4. 51 [facility] Lymphocytes/100 WBC Auto (Un sp spec)Ordered By: Lizet Linares on 09-29-2024 Automated lymphocyte count as percentage of total leukocytes 37.2 % 19-41 [facility] MCV (RBC) [Entitic vol]Order ed By: Lizet Linares on 09-29-2024 MCV (mean corpuscular volume) determination 89.5 fL 81-99 [facility] Mean corpuscular hemoglobin (MCH) determinationOrdered By: Lizet Linares on 09-29-2024 Mean corpuscular hemoglobin (MCH) determination 28.5 pg 27.0-32.0 [facility] Mean corpuscular hemoglobin concentration (MCHC) determinationOrdered By: Lizet Linares on 09-29-2024 Mean corpuscular hemoglobin concentration (MCHC) determination 31.8 g/dL Low 32-36 [facility] Mean platelet volume determi nationOrdered By: Lizet Linares on 09-29-2024 Mean platelet volume determination 9.6 fl 6.2-12.0 [facility] Monocyte percentageOrdered B y: Lizet Linares on 09-29-2024 Monocyte percentage 6.5 % 0-10 [facility] Neutrophil percentageOrdered By: Lizet Linares on 09-29-2024 Neutrophil percentage 53.6 % 47-70 [facility] Nucleated red blood cell per centageOrdered By: Lizet Linares on 09-29-2024 Nucleated red blood cell percentage 0 % 0-5 [facility] Platelet countOrdered By: Junie Linares on 09-29-2024 Platelet count 318 K/mm3 150-450 [facility] Potassium measurementOrdered By: Lizet Linares on 09-29-2024 Potassium measurement 3.8 mmol/L 3.5-5.1 [facility] RBC Auto (Bld) [#/Vol]Ordere d By: Lizet Linares on 09-29-2024 Automated blood erythrocyte count 3.44 M/mm3 Low 4.2-5.4 [facility] Serum anion gap measurementO rdered By: Lizet Linares on 09-29-2024 Serum anion gap measurement 7 5-15 [facility] Sodium levelOrdered By: Holly Linares on 09-29-2024 Sodium level 138 mmol/L 136-145 [facility] Urea nitrogen [Mass/Vol]Orde red By: Lizet Linares on 09-29-2024 Serum or plasma urea nitrogen measurement (mass/volume) 22 mg/dL High 7-18 [facility] White blood cell (WBC) count Ordered By: Lizet Linares on 09-29-2024 White blood cell (WBC) count 5.7 K/mm3 4.4-11.0 [facility] CNCOon 03-31-2024 CNCO Letter Text Normal [facility] Absolute lymphocyte countOrd ered By: Lizet Linares on 02-25-2024 Lymphocytes Auto (Unsp spec) [#/Vol] 2.72 10*3/uL 0.83-4.51 [facility] Automated lymphocyte count a s percentage of total leukocytesOrdered By: Lizet Linares on 02-25-2024 Lymphocytes/100 WBC Auto (Unsp spec) 38.5 % 19-41 [facility] Basophil percentageOrdered B y: Lizet Linares on 02-25-2024 Basophil percentage 10.6 g/dL 12.0-15.0 [facility] Basophil percentage 222 mg/dL 74-106 [facility] Basophil percentage 6.5 g/dL 6.4-8.2 [facility] Basophil percentage 0.30 mg/dL 0.20-1.00 [facility] Basophil percentage 138 mmol/L 136-145 [facility] Basophil percentage 4.0 mmol/L 3.5-5.1 [facility] Basophil percentage 105 mmol/L 98-107 [facility] Basophils (Bld) [#/Vol] 7.1 10*3/uL 4.4-11.0 [facility] Basophils (Bld) [#/Vol] 3.8 10*3/uL 2.0-7.7 [facility] Basophils/100 WBC (Bld) 53.5 % 47-70 [facility] Basophils/100 WBC (Bld) 5.4 % 0-10 [facility] Basophils/100 WBC (Bld) 1.8 % 0-5 [facility] Basophils/100 WBC (Bld) 0.4 % 0-1 [facility] Determination of erythrocyte mean corpuscular volume (MCV)Ordered By: Lizet Linares on 02-25-2024 MCV (RBC) [Entitic vol] 89.0 fL 81-99 [facility] Direct bilirubinOrdered By: Lizet Linares on 02-25-2024 Bilirubin.direct [Mass/Vol] 0.11 mg/dL 0.00-0.30 [facility] Erythrocyte distribution wid th ratioOrdered By: Lizet Linares on 02-25-2024 Erythrocyte distribution width (RBC) [Ratio] 13.6 % 11.6-14.6 [facility] Erythrocyte distribution wid th standard deviationOrdered By: Lizte Linares on 02-25-2024 Erythrocyte distribution width (RBC) [Entitic vol] 43.9 fL 35.1-43.9 [facility] Hematocrit Auto (Bld) [Volum e fraction]Ordered By: Lizet Linares on 02-25-2024 Hematocrit (Bld) [Volume fraction] 34.1 % 37-47 [facility] Immature granulocytes/100 WB C Auto (Bld)Ordered By: Lizet Linares on 02-25-2024 Immature granulocytes/100 WBC (Bld) 0.400 % 0.0-0.9 [facility] No Panel InformationOrdered By: Lizet Linares on 02-25-2024 27.7 pg 27.0-32.0 [facility] 31.1 g/dL 32-36 [facility] 335 K/mm3 150-450 [facility] 9.2 fl 6.2-12.0 [facility] 0 % 0-5 [facility] 50 mL/min >60 [facility] 61 mL/min >60 [facility] 12.8 RATIO 10-20 [facility] 3.8 g/dL 2.2-4.2 [facility] 45 U/L 45-117 [facility] 20 U/L 13-56 [facility] 25.0 mmol/L 21.0-32.0 [facility] RBC Auto (Bld) [#/Vol]Ordere d By: Lizet Linares on 02-25-2024 RBC (Bld) [#/Vol] 3.83 10*6/uL 4.2-5.4 [facility] Serum or plasma calcium tai urement (mass/volume)Ordered By: Lizet Linares on 02-25-2024 Calcium [Mass/Vol] 8.9 mg/dL 8.5-10.1 [facility] Serum or plasma creatinine m easurement (mass/volume)Ordered By: Lizet Linares on 02-25-2024 Creatinine [Mass/Vol] 1.17 mg/dL 0.55-1.02 [facility] Serum or plasma thyroid stim ulating hormone (TSH) measurement (units/volume)Ordered By: Asmitanatasha Linares on 02-25-2024 TSH Qn 0.07 uIU/mL 0.358-3.74 [facility] Serum or plasma urea nitroge n measurement (mass/volume)Ordered By: Juniechristajanellnatasha Linares on 02-25-2024 Urea nitrogen [Mass/Vol] 15 mg/dL 7-18 [facility] Thin prep Papanicolaou smear with manual screeningOrdered By: [facility] on 02-25-2024 Thin prep Papanicolaou smear with manual screening 2.7 g/dL 3.2-5.0 [facility] Thin prep Papanicolaou smear with manual screening 15 U/L 15-37 [facility] Thin prep Papanicolaou smear with manual screening 8 5-15 [facility] Whole blood hemoglobin A1c/t otal hemoglobin ratio (mass fraction)Ordered By: Hollyjanellnatasha Linares on 02-25-2024 HbA1c (Bld) [Mass fraction] 6.8 % 3.8-5.6 [facility] Absolute lymphocyte countOrd ered By: shanicenatasha Crossjntal on 02-18-2024 Lymphocytes Auto (Unsp spec) [#/Vol] 2.70 10*3/uL 0.83-4.51 [facility] Automated lymphocyte count a s percentage of total leukocytesOrdered By: Juniechristajanellnatasha Linares on 02-18-2024 Lymphocytes/100 WBC Auto (Unsp spec) 42.6 % 19-41 [facility] Basophil percentageOrdered B y: Asmitanatasha Linares on 02-18-2024 Basophil percentage 11.0 g/dL 12.0-15.0 [facility] Basophil percentage 180 mg/dL 74-106 [facility] Basophil percentage 139 mmol/L 136-145 [facility] Basophil percentage 4.2 mmol/L 3.5-5.1 [facility] Basophil percentage 107 mmol/L 98-107 [facility] Basophils (Bld) [#/Vol] 6.3 10*3/uL 4.4-11.0 [facility] Basophils (Bld) [#/Vol] 3.1 10*3/uL 2.0-7.7 [facility] Basophils/100 WBC (Bld) 48.9 % 47-70 [facility] Basophils/100 WBC (Bld) 6.0 % 0-10 [facility] Basophils/100 WBC (Bld) 1.3 % 0-5 [facility] Basophils/100 WBC (Bld) 0.6 % 0-1 [facility] Determination of erythrocyte mean corpuscular volume (MCV)Ordered By: Lizet Linares on 02-18-2024 MCV (RBC) [Entitic vol] 89.1 fL 81-99 [facility] Erythrocyte distribution wid th ratioOrdered By: [facility] Taytal on 02-18-2024 Erythrocyte distribution width (RBC) [Ratio] 13.2 % 11.6-14.6 [facility] Erythrocyte distribution wid th standard deviationOrdered By: Hollycumberlandnatasha Linares on 02-18-2024 Erythrocyte distribution width (RBC) [Entitic vol] 43.1 fL 35.1-43.9 [facility] Hematocrit Auto (Bld) [Volum e fraction]Ordered By: Lizet Linares on 02-18-2024 Hematocrit (Bld) [Volume fraction] 34.2 % 37-47 [facility] Immature granulocytes/100 WB C Auto (Bld)Ordered By: Lizet Linares on 02-18-2024 Immature granulocytes/100 WBC (Bld) 0.600 % 0.0-0.9 [facility] No Panel InformationOrdered By: Hollycumberlandnatasha Linares on 02-18-2024 28.6 pg 27.0-32.0 [facility] 32.2 g/dL 32-36 [facility] 337 K/mm3 150-450 [facility] 9.3 fl 6.2-12.0 [facility] 0 % 0-5 [facility] 45 mL/min >60 [facility] 55 mL/min >60 [facility] 14.8 RATIO 10-20 [facility] 26.0 mmol/L 21.0-32.0 [facility] RBC Auto (Bld) [#/Vol]Ordere d By: Lizet Linares on 02-18-2024 RBC (Bld) [#/Vol] 3.84 10*6/uL 4.2-5.4 [facility] Serum or plasma calcium tai urement (mass/volume)Ordered By: Hollyjanellnatasha Linares on 02-18-2024 Calcium [Mass/Vol] 8.8 mg/dL 8.5-10.1 [facility] Serum or plasma creatinine m easurement (mass/volume)Ordered By: Hollyjanellnatasha Linares on 02-18-2024 Creatinine [Mass/Vol] 1.28 mg/dL 0.55-1.02 [facility] Serum or plasma urea nitroge n measurement (mass/volume)Ordered By: Hollycumberlandnatasha Linares on 02-18-2024 Urea nitrogen [Mass/Vol] 19 mg/dL 7-18 [facility] Thin prep Papanicolaou smear with manual screeningOrdered By: Juniechristacumberlandnatasha Linares on 02-18-2024 Thin prep Papanicolaou smear with manual screening 6 5-15 [facility] Absolute lymphocyte countOrd ered By: Hollyjanellnatasha Crossjntal on 02-11-2024 Lymphocytes Auto (Unsp spec) [#/Vol] 2.53 10*3/uL 0.83-4.51 [facility] Automated lymphocyte count a s percentage of total leukocytesOrdered By: Hollyjanellnatasha Linares on 02-11-2024 Lymphocytes/100 WBC Auto (Unsp spec) 35.3 % 19-41 [facility] Basophil percentageOrdered B y: Asmitanatasha Crossjntal on 02-11-2024 Basophil percentage 11.3 g/dL 12.0-15.0 [facility] Basophil percentage 218 mg/dL 74-106 [facility] Basophil percentage 136 mmol/L 136-145 [facility] Basophil percentage 3.9 mmol/L 3.5-5.1 [facility] Basophil percentage 103 mmol/L 98-107 [facility] Basophils (Bld) [#/Vol] 7.2 10*3/uL 4.4-11.0 [facility] Basophils (Bld) [#/Vol] 3.9 10*3/uL 2.0-7.7 [facility] Basophils/100 WBC (Bld) 54.8 % 47-70 [facility] Basophils/100 WBC (Bld) 7.3 % 0-10 [facility] Basophils/100 WBC (Bld) 1.1 % 0-5 [facility] Basophils/100 WBC (Bld) 0.7 % 0-1 [facility] Determination of erythrocyte mean corpuscular volume (MCV)Ordered By: Lizet Linares on 02-11-2024 MCV (RBC) [Entitic vol] 88.9 fL 81-99 [facility] Erythrocyte distribution wid th ratioOrdered By: Lizet Linares on 02-11-2024 Erythrocyte distribution width (RBC) [Ratio] 13.3 % 11.6-14.6 [facility] Erythrocyte distribution wid th standard deviationOrdered By: Lizet Linares on 02-11-2024 Erythrocyte distribution width (RBC) [Entitic vol] 43.8 fL 35.1-43.9 [facility] Hematocrit Auto (Bld) [Volum e fraction]Ordered By: Lizet Linares on 02-11-2024 Hematocrit (Bld) [Volume fraction] 35.4 % 37-47 [facility] Immature granulocytes/100 WB C Auto (Bld)Ordered By: Lizet Linares on 02-11-2024 Immature granulocytes/100 WBC (Bld) 0.800 % 0.0-0.9 [facility] No Panel InformationOrdered By: Lizet Linares on 02-11-2024 28.4 pg 27.0-32.0 [facility] 31.9 g/dL 32-36 [facility] 430 K/mm3 150-450 [facility] 9.2 fl 6.2-12.0 [facility] 0 % 0-5 [facility] 59 mL/min >60 [facility] 72 mL/min >60 [facility] 18.8 RATIO 10-20 [facility] 26.0 mmol/L 21.0-32.0 [facility] RBC Auto (Bld) [#/Vol]Ordere d By: Lizet Linares on 02-11-2024 RBC (Bld) [#/Vol] 3.98 10*6/uL 4.2-5.4 [facility] Serum or plasma calcium tai urement (mass/volume)Ordered By: Lizet Linares on 02-11-2024 Calcium [Mass/Vol] 8.5 mg/dL 8.5-10.1 [facility] Serum or plasma creatinine m easurement (mass/volume)Ordered By: Lizet Linares on 02-11-2024 Creatinine [Mass/Vol] 1.01 mg/dL 0.55-1.02 [facility] Serum or plasma urea nitroge n measurement (mass/volume)Ordered By: Lizet Linares on 02-11-2024 Urea nitrogen [Mass/Vol] 19 mg/dL 7-18 [facility] Thin prep Papanicolaou smear with manual screeningOrdered By: Lizet Linares on 02-11-2024 Thin prep Papanicolaou smear with manual screening 7 5-15 [facility] Bacteria identified Cx Nom ( U)Ordered By: Lizet Linares on 02-09-2024 Culture, urine Proteus mirabilis [facility] Bilirubin Test strip Ql (U)O rdered By: Lizet Linares on 02-09-2024 Bilirubin Ql (U) Negative Negative [facility] Ketones Test strip Ql (U)Ord ered By: Lizet Linares on 02-09-2024 Ketones Ql (U) Negative Negative [facility] Nitrite Test strip Ql (U)Ord ered By: Lizet Linares on 02-09-2024 Nitrite Ql (U) Positive Negative [facility] Protein Test strip Ql (U)Ord ered By: Lizet Linares on 02-09-2024 Protein Ql (U) 15 mg/dl Negative [facility] Urine blood detectionOrdered By: Lizet Linares on 02-09-2024 RBC Ql (U) 10 /ul Negative [facility] Urine clarityOrdered By: Bart Linares on 02-09-2024 Clarity (U) Clear Clear [facility] Urine color determinationOrd ered By: Lizet Linares on 02-09-2024 Color (U) Yellow Yellow [facility] Urine glucose detectionOrder ed By: Lizet Linares on 02-09-2024 Glucose Ql (U) 100 mg/dl Normal [facility] Urine leukocyte esterase det ection by dipstickOrdered By: Lizet Linares on 02-09-2024 Leukocyte esterase Test strip Ql (U) Negative Negative [facility] Urine pHOrdered By: Frank Linares on 02-09-2024 pH (U) 7.0 [pH] 5.0 - 8.0 [facility] Urine specific gravity measu rementOrdered By: Lizet Linares on 02-09-2024 Specific gravity (U) [Rel density] 1.010 1.002-1.03 0 [facility] Urine urobilinogen measureme ntOrdered By: Lizet Linares on 02-09-2024 Urobilinogen Ql (U) Normal mg/dl Normal [facility] Absolute lymphocyte countOrd ered By: Lizet Linares on 02-04-2024 Lymphocytes Auto (Unsp spec) [#/Vol] 3.24 10*3/uL 0.83-4.51 [facility] Automated lymphocyte count a s percentage of total leukocytesOrdered By: Lizet Linares on 02-04-2024 Lymphocytes/100 WBC Auto (Unsp spec) 57.7 % 19-41 [facility] Basophil percentageOrdered B y: Liezt Linares on 02-04-2024 Basophil percentage 11.8 g/dL 12.0-15.0 [facility] Basophil percentage 81 mg/dL 74-106 [facility] Basophil percentage 135 mmol/L 136-145 [facility] Basophil percentage 4.2 mmol/L 3.5-5.1 [facility] Basophil percentage 103 mmol/L 98-107 [facility] Basophils (Bld) [#/Vol] 5.6 10*3/uL 4.4-11.0 [facility] Basophils (Bld) [#/Vol] 2.0 10*3/uL 2.0-7.7 [facility] Basophils/100 WBC (Bld) 35.6 % 47-70 [facility] Basophils/100 WBC (Bld) 5.5 % 0-10 [facility] Basophils/100 WBC (Bld) 0.5 % 0-1 [facility] Blood manual differential co mment interpretation (narrative result)Ordered By: Lizet Linares on 02-04-2024 Manual differential comment Major (Bld) [Interp] SCANNED [facility] Determination of erythrocyte mean corpuscular volume (MCV)Ordered By: Lizet Linares on 02-04-2024 MCV (RBC) [Entitic vol] 89.6 fL 81-99 [facility] Erythrocyte distribution wid th ratioOrdered By: Lizet Linarse on 02-04-2024 Erythrocyte distribution width (RBC) [Ratio] 13.7 % 11.6-14.6 [facility] Erythrocyte distribution wid th standard deviationOrdered By: Lizet Linares on 02-04-2024 Erythrocyte distribution width (RBC) [Entitic vol] 45.0 fL 35.1-43.9 [facility] Hematocrit Auto (Bld) [Volum e fraction]Ordered By: Lizet Linares on 02-04-2024 Hematocrit (Bld) [Volume fraction] 37.2 % 37-47 [facility] Immature granulocytes/100 WB C Auto (Bld)Ordered By: Lizet Linares on 02-04-2024 Immature granulocytes/100 WBC (Bld) 0.200 % 0.0-0.9 [facility] No Panel InformationOrdered By: Lizet Linares on 02-04-2024 28.4 pg 27.0-32.0 [facility] 31.7 g/dL 32-36 [facility] 317 K/mm3 150-450 [facility] 9.3 fl 6.2-12.0 [facility] 0 % 0-5 [facility] 1+ [facility] 53 mL/min >60 [facility] 64 mL/min >60 [facility] 15.3 RATIO 10-20 [facility] 27.0 mmol/L 21.0-32.0 [facility] RBC Auto (Bld) [#/Vol]Ordere d By: Lizet Linares on 02-04-2024 RBC (Bld) [#/Vol] 4.15 10*6/uL 4.2-5.4 [facility] Serum or plasma calcium tai urement (mass/volume)Ordered By: Lizet Linares on 02-04-2024 Calcium [Mass/Vol] 9.0 mg/dL 8.5-10.1 [facility] Serum or plasma creatinine m easurement (mass/volume)Ordered By: Lizet Linares on 02-04-2024 Creatinine [Mass/Vol] 1.11 mg/dL 0.55-1.02 [facility] Serum or plasma urea nitroge n measurement (mass/volume)Ordered By: Hollycumberlandnatasha Linares on 02-04-2024 Urea nitrogen [Mass/Vol] 17 mg/dL 7-18 [facility] Thin prep Papanicolaou smear with manual screeningOrdered By: christacumberlandnatasha Linares on 02-04-2024 Thin prep Papanicolaou smear with manual screening 5 5-15 [facility] Absolute lymphocyte countOrd ered By: Lizet Linares on 02-02-2024 Lymphocytes Auto (Unsp spec) [#/Vol] 2.22 10*3/uL 0.83-4.51 [facility] Automated lymphocyte count a s percentage of total leukocytesOrdered By: Lizet Linares on 02-02-2024 Lymphocytes/100 WBC Auto (Unsp spec) 43.9 % 19-41 [facility] Basophil percentageOrdered B y: Hollyjanellnatasha Linares on 02-02-2024 Basophil percentage 11.0 g/dL 12.0-15.0 [facility] Basophil percentage 95 mg/dL 74-106 [facility] Basophil percentage 6.3 g/dL 6.4-8.2 [facility] Basophil percentage 0.30 mg/dL 0.20-1.00 [facility] Basophil percentage 138 mmol/L 136-145 [facility] Basophil percentage 3.9 mmol/L 3.5-5.1 [facility] Basophil percentage 107 mmol/L 98-107 [facility] Basophils (Bld) [#/Vol] 5.1 10*3/uL 4.4-11.0 [facility] Basophils (Bld) [#/Vol] 2.4 10*3/uL 2.0-7.7 [facility] Basophils/100 WBC (Bld) 46.6 % 47-70 [facility] Basophils/100 WBC (Bld) 7.3 % 0-10 [facility] Basophils/100 WBC (Bld) 1.2 % 0-5 [facility] Basophils/100 WBC (Bld) 0.6 % 0-1 [facility] Determination of erythrocyte mean corpuscular volume (MCV)Ordered By: Lizet Linares on 02-02-2024 MCV (RBC) [Entitic vol] 90.0 fL 81-99 [facility] Erythrocyte distribution wid th ratioOrdered By: [facility] Taytal on 02-02-2024 Erythrocyte distribution width (RBC) [Ratio] 13.8 % 11.6-14.6 [facility] Erythrocyte distribution wid th standard deviationOrdered By: [facility] Taytal on 02-02-2024 Erythrocyte distribution width (RBC) [Entitic vol] 45.3 fL 35.1-43.9 [facility] Hematocrit Auto (Bld) [Volum e fraction]Ordered By: [facility] Taytal on 02-02-2024 Hematocrit (Bld) [Volume fraction] 34.3 % 37-47 [facility] Immature granulocytes/100 WB C Auto (Bld)Ordered By: [facility] Taytal on 02-02-2024 Immature granulocytes/100 WBC (Bld) 0.400 % 0.0-0.9 [facility] No Panel InformationOrdered By: [facility] 28.9 pg 27.0-32.0 [facility] 32.1 g/dL 32-36 [facility] 279 K/mm3 150-450 [facility] 9.4 fl 6.2-12.0 [facility] 0 % 0-5 [facility] 64 mL/min >60 [facility] 78 mL/min >60 [facility] 17.0 RATIO 10-20 [facility] 3.5 g/dL 2.2-4.2 [facility] 0.8 RATIO 0.9-2.4 [facility] 44 U/L 13-56 [facility] 26.0 mmol/L 21.0-32.0 [facility] RBC Auto (Bld) [#/Vol]Ordere d By: Hollyjanellnatasha Linares on 02-02-2024 RBC (Bld) [#/Vol] 3.81 10*6/uL 4.2-5.4 [facility] Serum or plasma calcium tai urement (mass/volume)Ordered By: Lizet Linares on 02-02-2024 Calcium [Mass/Vol] 8.7 mg/dL 8.5-10.1 [facility] Serum or plasma creatinine m easurement (mass/volume)Ordered By: Lizet Linares on 02-02-2024 Creatinine [Mass/Vol] 0.94 mg/dL 0.55-1.02 [facility] Serum or plasma urea nitroge n measurement (mass/volume)Ordered By: Lizet Linares on 02-02-2024 Urea nitrogen [Mass/Vol] 16 mg/dL 7-18 [facility] Thin prep Papanicolaou smear with manual screeningOrdered By: Lizet Linares on 02-02-2024 Thin prep Papanicolaou smear with manual screening 2.8 g/dL 3.2-5.0 [facility] Thin prep Papanicolaou smear with manual screening 42 U/L 15-37 [facility] Thin prep Papanicolaou smear with manual screening 5 5-15 [facility] Absolute lymphocyte countOrd ered By: Lizet Linares on 01-28-2024 Lymphocytes Auto (Unsp spec) [#/Vol] 2.40 10*3/uL 0.83-4.51 [facility] Automated lymphocyte count a s percentage of total leukocytesOrdered By: Lizet iLnares on 01-28-2024 Lymphocytes/100 WBC Auto (Unsp spec) 43.0 % 19-41 [facility] Basophil percentageOrdered B y: Lizet Lianres on 01-28-2024 Basophil percentage 11.4 g/dL 12.0-15.0 [facility] Basophil percentage 275 mg/dL 74-106 [facility] Basophil percentage 137 mmol/L 136-145 [facility] Basophil percentage 4.0 mmol/L 3.5-5.1 [facility] Basophil percentage 102 mmol/L 98-107 [facility] Basophils (Bld) [#/Vol] 5.6 10*3/uL 4.4-11.0 [facility] Basophils (Bld) [#/Vol] 2.6 10*3/uL 2.0-7.7 [facility] Basophils/100 WBC (Bld) 47.2 % 47-70 [facility] Basophils/100 WBC (Bld) 6.3 % 0-10 [facility] Basophils/100 WBC (Bld) 2.3 % 0-5 [facility] Basophils/100 WBC (Bld) 0.7 % 0-1 [facility] Determination of erythrocyte mean corpuscular volume (MCV)Ordered By: Lizet Linares on 01-28-2024 MCV (RBC) [Entitic vol] 90.2 fL 81-99 [facility] Erythrocyte distribution wid th ratioOrdered By: Lizet Linares on 01-28-2024 Erythrocyte distribution width (RBC) [Ratio] 13.7 % 11.6-14.6 [facility] Erythrocyte distribution wid th standard deviationOrdered By: Lizet Linraes on 01-28-2024 Erythrocyte distribution width (RBC) [Entitic vol] 44.7 fL 35.1-43.9 [facility] Hematocrit Auto (Bld) [Volum e fraction]Ordered By: Lizet Linares on 01-28-2024 Hematocrit (Bld) [Volume fraction] 34.2 % 37-47 [facility] Immature granulocytes/100 WB C Auto (Bld)Ordered By: Lizet Linares on 01-28-2024 Immature granulocytes/100 WBC (Bld) 0.500 % 0.0-0.9 [facility] No Panel InformationOrdered By: Lizet Linares on 01-28-2024 30.1 pg 27.0-32.0 [facility] 33.3 g/dL 32-36 [facility] 298 K/mm3 150-450 [facility] 9.1 fl 6.2-12.0 [facility] 0 % 0-5 [facility] 53 mL/min >60 [facility] 64 mL/min >60 [facility] 16.1 RATIO 10-20 [facility] 28.0 mmol/L 21.0-32.0 [facility] RBC Auto (Bld) [#/Vol]Ordere d By: Lizet Linares on 01-28-2024 RBC (Bld) [#/Vol] 3.79 10*6/uL 4.2-5.4 [facility] Serum or plasma calcium tai urement (mass/volume)Ordered By: Lizet Linares on 01-28-2024 Calcium [Mass/Vol] 8.8 mg/dL 8.5-10.1 [facility] Serum or plasma creatinine m easurement (mass/volume)Ordered By: Lizet Linares on 01-28-2024 Creatinine [Mass/Vol] 1.12 mg/dL 0.55-1.02 [facility] Serum or plasma urea nitroge n measurement (mass/volume)Ordered By: Lizet Linares on 01-28-2024 Urea nitrogen [Mass/Vol] 18 mg/dL 7-18 [facility] Thin prep Papanicolaou smear with manual screeningOrdered By: Lizet Linares on 01-28-2024 Thin prep Papanicolaou smear with manual screening 7 5-15 [facility] Absolute lymphocyte countOrd ered By: Lizet Linares on 01-21-2024 Lymphocytes Auto (Unsp spec) [#/Vol] 2.61 10*3/uL 0.83-4.51 [facility] Automated lymphocyte count a s percentage of total leukocytesOrdered By: Lizet Linares on 01-21-2024 Lymphocytes/100 WBC Auto (Unsp spec) 38.7 % 19-41 [facility] Basophil percentageOrdered B y: Lizet Linares on 01-21-2024 Basophil percentage 10.7 g/dL 12.0-15.0 [facility] Basophil percentage 138 mg/dL 74-106 [facility] Basophil percentage 139 mmol/L 136-145 [facility] Basophil percentage 4.5 mmol/L 3.5-5.1 [facility] Basophil percentage 106 mmol/L 98-107 [facility] Basophils (Bld) [#/Vol] 6.8 10*3/uL 4.4-11.0 [facility] Basophils (Bld) [#/Vol] 3.6 10*3/uL 2.0-7.7 [facility] Basophils/100 WBC (Bld) 52.9 % 47-70 [facility] Basophils/100 WBC (Bld) 5.2 % 0-10 [facility] Basophils/100 WBC (Bld) 2.5 % 0-5 [facility] Basophils/100 WBC (Bld) 0.4 % 0-1 [facility] Determination of erythrocyte mean corpuscular volume (MCV)Ordered By: Lizet Linares on 01-21-2024 MCV (RBC) [Entitic vol] 91.7 fL 81-99 [facility] Erythrocyte distribution wid th ratioOrdered By: Hollycumberlandnatasha Linares on 01-21-2024 Erythrocyte distribution width (RBC) [Ratio] 13.9 % 11.6-14.6 [facility] Erythrocyte distribution wid th standard deviationOrdered By: Lizet Linares on 01-21-2024 Erythrocyte distribution width (RBC) [Entitic vol] 47.2 fL 35.1-43.9 [facility] Hematocrit Auto (Bld) [Volum e fraction]Ordered By: Lizet Linares on 01-21-2024 Hematocrit (Bld) [Volume fraction] 33.1 % 37-47 [facility] Immature granulocytes/100 WB C Auto (Bld)Ordered By: Lizet Linares on 01-21-2024 Immature granulocytes/100 WBC (Bld) 0.300 % 0.0-0.9 [facility] No Panel InformationOrdered By: [facility] Taytal on 01-21-2024 29.6 pg 27.0-32.0 [facility] 32.3 g/dL 32-36 [facility] 321 K/mm3 150-450 [facility] 9.1 fl 6.2-12.0 [facility] 0 % 0-5 [facility] 50 mL/min >60 [facility] 60 mL/min >60 [facility] 12.7 RATIO 10-20 [facility] 27.0 mmol/L 21.0-32.0 [facility] RBC Auto (Bld) [#/Vol]Ordere d By: Lizet Linares on 01-21-2024 RBC (Bld) [#/Vol] 3.61 10*6/uL 4.2-5.4 [facility] Serum or plasma calcium tai urement (mass/volume)Ordered By: Lizet Linares on 01-21-2024 Calcium [Mass/Vol] 8.9 mg/dL 8.5-10.1 [facility] Serum or plasma creatinine m easurement (mass/volume)Ordered By: Lizet Lniares on 01-21-2024 Creatinine [Mass/Vol] 1.18 mg/dL 0.55-1.02 [facility] Serum or plasma urea nitroge n measurement (mass/volume)Ordered By: Lizet Linares on 01-21-2024 Urea nitrogen [Mass/Vol] 15 mg/dL 7-18 [facility] Thin prep Papanicolaou smear with manual screeningOrdered By: Lizet Linares on 01-21-2024 Thin prep Papanicolaou smear with manual screening 6 5-15 [facility] Absolute lymphocyte countOrd ered By: Ellis Peterson on 01-20-2024 Lymphocytes Auto (Unsp spec) [#/Vol] 2.86 10*3/uL 0.83-4.51 [facility] Automated lymphocyte count a s percentage of total leukocytesOrdered By: Ellis Peterson on 01-20-2024 Lymphocytes/100 WBC Auto (Unsp spec) 34.1 % 19-41 [facility] Basophil percentageOrdered B y: Ellis Peterson on 01-20-2024 Basophil percentage 11.3 g/dL 12.0-15.0 [facility] Basophil percentage 83 mg/dL 74-106 [facility] Basophil percentage 139 mmol/L 136-145 [facility] Basophil percentage 4.3 mmol/L 3.5-5.1 [facility] Basophil percentage 106 mmol/L 98-107 [facility] Basophils (Bld) [#/Vol] 8.4 10*3/uL 4.4-11.0 [facility] Basophils (Bld) [#/Vol] 4.9 10*3/uL 2.0-7.7 [facility] Basophils/100 WBC (Bld) 58.1 % 47-70 [facility] Basophils/100 WBC (Bld) 5.5 % 0-10 [facility] Basophils/100 WBC (Bld) 1.4 % 0-5 [facility] Basophils/100 WBC (Bld) 0.5 % 0-1 [facility] Determination of erythrocyte mean corpuscular volume (MCV)Ordered By: Ellis Peterson on 01-20-2024 MCV (RBC) [Entitic vol] 92.2 fL 81-99 [facility] Erythrocyte distribution wid th ratioOrdered By: Ellis Peterson on 01-20-2024 Erythrocyte distribution width (RBC) [Ratio] 14.0 % 11.6-14.6 [facility] Erythrocyte distribution wid th standard deviationOrdered By: Ellis Petersno on 01-20-2024 Erythrocyte distribution width (RBC) [Entitic vol] 47.4 fL 35.1-43.9 [facility] Hematocrit Auto (Bld) [Volum e fraction]Ordered By: Ellis Peterson on 01-20-2024 Hematocrit (Bld) [Volume fraction] 35.6 % 37-47 [facility] Immature granulocytes/100 WB C Auto (Bld)Ordered By: Ellis Peterson on 01-20-2024 Immature granulocytes/100 WBC (Bld) 0.400 % 0.0-0.9 [facility] No Panel InformationOrdered By: Ellis Peterson on 01-20-2024 21 pg/mL 3.0-54.0 [facility] 29.3 pg 27.0-32.0 [facility] 31.7 g/dL 32-36 [facility] 379 K/mm3 150-450 [facility] 9.0 fl 6.2-12.0 [facility] 0 % 0-5 [facility] 66 mL/min >60 [facility] 79 mL/min >60 [facility] 62.41 ml/min [facility] 14.0 RATIO 10-20 [facility] 28.0 mmol/L 21.0-32.0 [facility] RBC Auto (Bld) [#/Vol]Ordere d By: Ellis Peterson on 01-20-2024 RBC (Bld) [#/Vol] 3.86 10*6/uL 4.2-5.4 [facility] Serum or plasma calcium tai urement (mass/volume)Ordered By: Ellis Peterson on 01-20-2024 Calcium [Mass/Vol] 9.2 mg/dL 8.5-10.1 [facility] Serum or plasma creatinine m easurement (mass/volume)Ordered By: Ellis Peterson on 01-20-2024 Creatinine [Mass/Vol] 0.93 mg/dL 0.55-1.02 [facility] Serum or plasma urea nitroge n measurement (mass/volume)Ordered By: Ellis Peterson on 01-20-2024 Urea nitrogen [Mass/Vol] 13 mg/dL 7-18 [facility] Thin prep Papanicolaou smear with manual screeningOrdered By: Ellis Peterson on 01-20-2024 Thin prep Papanicolaou smear with manual screening 5 5-15 [facility] Clostridioides difficile nuc leic acid assay by PCROrdered By: Lizet Linares on 01-19-2024 C. difficile DNA ZHANE+probe Ql (Unsp spec) [facility] Absolute lymphocyte countOrd ered By: Lizet Linares on 01-17-2024 Lymphocytes Auto (Unsp spec) [#/Vol] 2.59 10*3/uL 0.83-4.51 [facility] Automated lymphocyte count a s percentage of total leukocytesOrdered By: Lizet Linares on 01-17-2024 Lymphocytes/100 WBC Auto (Unsp spec) 36.9 % 19-41 [facility] Bacteria identified Cx Nom ( U)Ordered By: Lizet Linares on 01-17-2024 Culture, urine Serratia fonticola [facility] Basophil percentageOrdered B y: Lizet Linares on 01-17-2024 Basophil percentage 10.2 g/dL 12.0-15.0 [facility] Basophil percentage 199 mg/dL 74-106 [facility] Basophil percentage 6.0 g/dL 6.4-8.2 [facility] Basophil percentage 0.20 mg/dL 0.20-1.00 [facility] Basophil percentage 136 mmol/L 136-145 [facility] Basophil percentage 3.8 mmol/L 3.5-5.1 [facility] Basophil percentage 103 mmol/L 98-107 [facility] Basophils (Bld) [#/Vol] 7.0 10*3/uL 4.4-11.0 [facility] Basophils (Bld) [#/Vol] 3.9 10*3/uL 2.0-7.7 [facility] Basophils/100 WBC (Bld) 55.5 % 47-70 [facility] Basophils/100 WBC (Bld) 5.1 % 0-10 [facility] Basophils/100 WBC (Bld) 1.4 % 0-5 [facility] Basophils/100 WBC (Bld) 0.7 % 0-1 [facility] Basophil percentage 0 SEEN /hpf 0-5 [facility] Bilirubin Test strip Ql (U)O rdered By: Lizet Linares on 01-17-2024 Bilirubin Ql (U) Negative Negative [facility] Determination of erythrocyte mean corpuscular volume (MCV)Ordered By: Lizet Linares on 01-17-2024 MCV (RBC) [Entitic vol] 91.3 fL 81-99 [facility] Erythrocyte distribution wid th ratioOrdered By: Lizet Linares on 01-17-2024 Erythrocyte distribution width (RBC) [Ratio] 13.6 % 11.6-14.6 [facility] Erythrocyte distribution wid th standard deviationOrdered By: Lizet Linares on 01-17-2024 Erythrocyte distribution width (RBC) [Entitic vol] 45.4 fL 35.1-43.9 [facility] Hematocrit Auto (Bld) [Volum e fraction]Ordered By: Lizet Linares on 01-17-2024 Hematocrit (Bld) [Volume fraction] 32.4 % 37-47 [facility] Immature granulocytes/100 WB C Auto (Bld)Ordered By: Lizet Linares on 01-17-2024 Immature granulocytes/100 WBC (Bld) 0.400 % 0.0-0.9 [facility] Ketones Test strip Ql (U)Ord ered By: Lizet Linares on 01-17-2024 Ketones Ql (U) Negative Negative [facility] Mucus LM Ql (Urine sed)Order ed By: Lizet Linares on 01-17-2024 Mucus Ql (Urine sed) 0 SEEN /hpf [facility] Nitrite Test strip Ql (U)Ord ered By: Lizet Linares on 01-17-2024 Nitrite Ql (U) Negative Negative [facility] No Panel InformationOrdered By: Lizet Linares on 01-17-2024 28.7 pg 27.0-32.0 [facility] 31.5 g/dL 32-36 [facility] 339 K/mm3 150-450 [facility] 9.2 fl 6.2-12.0 [facility] 0 % 0-5 [facility] 59 mL/min >60 [facility] 71 mL/min >60 [facility] 15.7 RATIO 10-20 [facility] 3.3 g/dL 2.2-4.2 [facility] 0.8 RATIO 0.9-2.4 [facility] 49 U/L 45-117 [facility] 30 U/L 13-56 [facility] 27.0 mmol/L 21.0-32.0 [facility] 0 SEEN /hpf 0-5 [facility] Protein Test strip Ql (U)Ord ered By: Lizet Linares on 01-17-2024 Protein Ql (U) Negative Negative [facility] RBC Auto (Bld) [#/Vol]Ordere d By: Lizet Linares on 01-17-2024 RBC (Bld) [#/Vol] 3.55 10*6/uL 4.2-5.4 [facility] Serum or plasma calcium tai urement (mass/volume)Ordered By: Lizet Linares on 01-17-2024 Calcium [Mass/Vol] 8.0 mg/dL 8.5-10.1 [facility] Serum or plasma creatinine m easurement (mass/volume)Ordered By: Lizet Linares on 01-17-2024 Creatinine [Mass/Vol] 1.02 mg/dL 0.55-1.02 [facility] Serum or plasma urea nitroge n measurement (mass/volume)Ordered By: Lizet Linares on 01-17-2024 Urea nitrogen [Mass/Vol] 16 mg/dL 7-18 [facility] Squamous epithelial cells de tection in urine sediment by light microscopyOrdered By: Lizet Linares on 01-17-2024 Epithelial cells.squamous LM Ql (Urine sed) 0 SEEN /hpf 5-10 [facility] Thin prep Papanicolaou smear with manual screeningOrdered By: Lizet Linares on 01-17-2024 Thin prep Papanicolaou smear with manual screening 2.7 g/dL 3.2-5.0 [facility] Thin prep Papanicolaou smear with manual screening 19 U/L 15-37 [facility] Thin prep Papanicolaou smear with manual screening 6 5-15 [facility] Urine blood detectionOrdered By: Lizet Linares on 01-17-2024 RBC Ql (U) Negative Negative [facility] Urine clarityOrdered By: Bart Linares on 01-17-2024 Clarity (U) Clear Clear [facility] Urine color determinationOrd ered By: Lizet Linares on 01-17-2024 Color (U) Yellow Yellow [facility] Urine glucose detectionOrder ed By: Lizet Linares on 01-17-2024 Glucose Ql (U) 100 mg/dl Normal [facility] Urine leukocyte esterase det ection by dipstickOrdered By: Lizet Linares on 01-17-2024 Leukocyte esterase Test strip Ql (U) Negative Negative [facility] Urine pHOrdered By: Frank Linares on 01-17-2024 pH (U) 6.0 [pH] 5.0 - 8.0 [facility] Urine sediment bacteria coun t by microscopy (number/high power field)Ordered By: Lizet Linares on 01-17-2024 Bacteria LM.HPF (Urine sed) [#/Area] 0 /[HPF] None Seen [facility] Urine specific gravity measu rementOrdered By: Lizet Linares on 01-17-2024 Specific gravity (U) [Rel density] 1.015 1.002-1.03 0 [facility] Urine urobilinogen measureme ntOrdered By: Lizet Linares on 01-17-2024 Urobilinogen Ql (U) Normal mg/dl Normal [facility] Absolute lymphocyte countOrd ered By: Lizet Linares on 01-14-2024 Lymphocytes Auto (Unsp spec) [#/Vol] 2.49 10*3/uL 0.83-4.51 [facility] Automated lymphocyte count a s percentage of total leukocytesOrdered By: Lizet Linares on 01-14-2024 Lymphocytes/100 WBC Auto (Unsp spec) 32.0 % 19-41 [facility] Basophil percentageOrdered B y: Lizet Linares on 01-14-2024 Basophil percentage 10.1 g/dL 12.0-15.0 [facility] Basophil percentage 268 mg/dL 74-106 [facility] Basophil percentage 136 mmol/L 136-145 [facility] Basophil percentage 4.3 mmol/L 3.5-5.1 [facility] Basophil percentage 104 mmol/L 98-107 [facility] Basophils (Bld) [#/Vol] 7.8 10*3/uL 4.4-11.0 [facility] Basophils (Bld) [#/Vol] 4.8 10*3/uL 2.0-7.7 [facility] Basophils/100 WBC (Bld) 61.1 % 47-70 [facility] Basophils/100 WBC (Bld) 5.1 % 0-10 [facility] Basophils/100 WBC (Bld) 1.0 % 0-5 [facility] Basophils/100 WBC (Bld) 0.4 % 0-1 [facility] Determination of erythrocyte mean corpuscular volume (MCV)Ordered By: Lizet Linares on 01-14-2024 MCV (RBC) [Entitic vol] 90.9 fL 81-99 [facility] Erythrocyte distribution wid th ratioOrdered By: Lizet Linares on 01-14-2024 Erythrocyte distribution width (RBC) [Ratio] 13.6 % 11.6-14.6 [facility] Erythrocyte distribution wid th standard deviationOrdered By: Lizet Linares on 01-14-2024 Erythrocyte distribution width (RBC) [Entitic vol] 45.1 fL 35.1-43.9 [facility] Hematocrit Auto (Bld) [Volum e fraction]Ordered By: Lizet Linares on 01-14-2024 Hematocrit (Bld) [Volume fraction] 31.8 % 37-47 [facility] Immature granulocytes/100 WB C Auto (Bld)Ordered By: Lizet Linares on 01-14-2024 Immature granulocytes/100 WBC (Bld) 0.400 % 0.0-0.9 [facility] No Panel InformationOrdered By: Lizet Linares on 01-14-2024 28.9 pg 27.0-32.0 [facility] 31.8 g/dL 32-36 [facility] 355 K/mm3 150-450 [facility] 9.2 fl 6.2-12.0 [facility] 0 % 0-5 [facility] 55 mL/min >60 [facility] 66 mL/min >60 [facility] 14.8 RATIO 10-20 [facility] 27.0 mmol/L 21.0-32.0 [facility] RBC Auto (Bld) [#/Vol]Ordere d By: Lizet Linares on 01-14-2024 RBC (Bld) [#/Vol] 3.50 10*6/uL 4.2-5.4 [facility] Serum or plasma calcium tai urement (mass/volume)Ordered By: Lizet Linares on 01-14-2024 Calcium [Mass/Vol] 8.5 mg/dL 8.5-10.1 [facility] Serum or plasma creatinine m easurement (mass/volume)Ordered By: Lizet Linares on 01-14-2024 Creatinine [Mass/Vol] 1.08 mg/dL 0.55-1.02 [facility] Serum or plasma urea nitroge n measurement (mass/volume)Ordered By: Lizet Linares on 01-14-2024 Urea nitrogen [Mass/Vol] 16 mg/dL 7-18 [facility] Thin prep Papanicolaou smear with manual screeningOrdered By: Lizet Linares on 01-14-2024 Thin prep Papanicolaou smear with manual screening 5 5-15 [facility] Absolute lymphocyte countOrd ered By: Lizet Linares on 01-12-2024 Lymphocytes Auto (Unsp spec) [#/Vol] 2.91 10*3/uL 0.83-4.51 [facility] Automated lymphocyte count a s percentage of total leukocytesOrdered By: Asmitanatasha Crossjntal on 01-12-2024 Lymphocytes/100 WBC Auto (Unsp spec) 31.8 % 19-41 [facility] Basophil percentageOrdered B y: Lizet Linares on 01-12-2024 Basophil percentage 11.1 g/dL 12.0-15.0 [facility] Basophil percentage 215 mg/dL 74-106 [facility] Basophil percentage 136 mmol/L 136-145 [facility] Basophil percentage 4.2 mmol/L 3.5-5.1 [facility] Basophil percentage 103 mmol/L 98-107 [facility] Basophils (Bld) [#/Vol] 9.2 10*3/uL 4.4-11.0 [facility] Basophils (Bld) [#/Vol] 5.7 10*3/uL 2.0-7.7 [facility] Basophils/100 WBC (Bld) 61.9 % 47-70 [facility] Basophils/100 WBC (Bld) 4.6 % 0-10 [facility] Basophils/100 WBC (Bld) 0.8 % 0-5 [facility] Basophils/100 WBC (Bld) 0.4 % 0-1 [facility] Determination of erythrocyte mean corpuscular volume (MCV)Ordered By: Juniechristajanellnatasha Linares on 01-12-2024 MCV (RBC) [Entitic vol] 90.4 fL 81-99 [facility] Erythrocyte distribution wid th ratioOrdered By: Lizet Tayjntal on 01-12-2024 Erythrocyte distribution width (RBC) [Ratio] 13.5 % 11.6-14.6 [facility] Erythrocyte distribution wid th standard deviationOrdered By: Lizet Linares on 01-12-2024 Erythrocyte distribution width (RBC) [Entitic vol] 44.3 fL 35.1-43.9 [facility] Hematocrit Auto (Bld) [Volum e fraction]Ordered By: Lizet Linares on 01-12-2024 Hematocrit (Bld) [Volume fraction] 34.7 % 37-47 [facility] Immature granulocytes/100 WB C Auto (Bld)Ordered By: Lizet Linares on 01-12-2024 Immature granulocytes/100 WBC (Bld) 0.500 % 0.0-0.9 [facility] No Panel InformationOrdered By: Lizet Linares on 01-12-2024 28.9 pg 27.0-32.0 [facility] 32.0 g/dL 32-36 [facility] 439 K/mm3 150-450 [facility] 9.5 fl 6.2-12.0 [facility] 0 % 0-5 [facility] 59 mL/min >60 [facility] 72 mL/min >60 [facility] 21.8 RATIO 10-20 [facility] 26.0 mmol/L 21.0-32.0 [facility] RBC Auto (Bld) [#/Vol]Ordere d By: Lizet Linares on 01-12-2024 RBC (Bld) [#/Vol] 3.84 10*6/uL 4.2-5.4 [facility] Serum or plasma calcium tai urement (mass/volume)Ordered By: Lizet Linares on 01-12-2024 Calcium [Mass/Vol] 8.7 mg/dL 8.5-10.1 [facility] Serum or plasma creatinine m easurement (mass/volume)Ordered By: Lizet Linares on 01-12-2024 Creatinine [Mass/Vol] 1.01 mg/dL 0.55-1.02 [facility] Serum or plasma urea nitroge n measurement (mass/volume)Ordered By: Lizet Linares on 01-12-2024 Urea nitrogen [Mass/Vol] 22 mg/dL 7-18 [facility] Thin prep Papanicolaou smear with manual screeningOrdered By: Lizet Linares on 01-12-2024 Thin prep Papanicolaou smear with manual screening 7 -15 [facility] Absolute lymphocyte countOrd ered By: Lizet Linares on 01-07-2024 Lymphocytes Auto (Unsp spec) [#/Vol] 2.39 10*3/uL 0.83-4.51 [facility] Automated lymphocyte count a s percentage of total leukocytesOrdered By: Lizet Linares on 01-07-2024 Lymphocytes/100 WBC Auto (Unsp spec) 33.3 % 19-41 [facility] Basophil percentageOrdered B y: Lizet Linares on 01-07-2024 Basophil percentage 10.5 g/dL 12.0-15.0 [facility] Basophil percentage 350 mg/dL 74-106 [facility] Basophil percentage 137 mmol/L 136-145 [facility] Basophil percentage 3.8 mmol/L 3.5-5.1 [facility] Basophil percentage 103 mmol/L 98-107 [facility] Basophils (Bld) [#/Vol] 7.2 10*3/uL 4.4-11.0 [facility] Basophils (Bld) [#/Vol] 4.3 10*3/uL 2.0-7.7 [facility] Basophils/100 WBC (Bld) 59.4 % 47-70 [facility] Basophils/100 WBC (Bld) 5.6 % 0-10 [facility] Basophils/100 WBC (Bld) 0.8 % 0-5 [facility] Basophils/100 WBC (Bld) 0.3 % 0-1 [facility] Determination of erythrocyte mean corpuscular volume (MCV)Ordered By: Lizet Linares on 01-07-2024 MCV (RBC) [Entitic vol] 90.6 fL 81-99 [facility] Erythrocyte distribution wid th ratioOrdered By: Lizet Linares on 01-07-2024 Erythrocyte distribution width (RBC) [Ratio] 13.6 % 11.6-14.6 [facility] Erythrocyte distribution wid th standard deviationOrdered By: Lizet Linares on 01-07-2024 Erythrocyte distribution width (RBC) [Entitic vol] 44.8 fL 35.1-43.9 [facility] Hematocrit Auto (Bld) [Volum e fraction]Ordered By: Lizet Linares on 01-07-2024 Hematocrit (Bld) [Volume fraction] 31.8 % 37-47 [facility] Immature granulocytes/100 WB C Auto (Bld)Ordered By: Lizet Linares on 01-07-2024 Immature granulocytes/100 WBC (Bld) 0.600 % 0.0-0.9 [facility] No Panel InformationOrdered By: Lizet Linares on 01-07-2024 29.9 pg 27.0-32.0 [facility] 33.0 g/dL 32-36 [facility] 310 K/mm3 150-450 [facility] 9.3 fl 6.2-12.0 [facility] 0 % 0-5 [facility] 59 mL/min >60 [facility] 71 mL/min >60 [facility] 22.5 RATIO 10-20 [facility] 27.0 mmol/L 21.0-32.0 [facility] RBC Auto (Bld) [#/Vol]Ordere d By: Lizet Linares on 01-07-2024 RBC (Bld) [#/Vol] 3.51 10*6/uL 4.2-5.4 [facility] Serum or plasma calcium tai urement (mass/volume)Ordered By: Lizet Linares on 01-07-2024 Calcium [Mass/Vol] 8.3 mg/dL 8.5-10.1 [facility] Serum or plasma creatinine m easurement (mass/volume)Ordered By: Lizet Linares on 01-07-2024 Creatinine [Mass/Vol] 1.02 mg/dL 0.55-1.02 [facility] Serum or plasma urea nitroge n measurement (mass/volume)Ordered By: Lizet Linares on 01-07-2024 Urea nitrogen [Mass/Vol] 23 mg/dL 7-18 [facility] Thin prep Papanicolaou smear with manual screeningOrdered By: Lizet Linares on 01-07-2024 Thin prep Papanicolaou smear with manual screening 7 5-15 [facility] Basophil percentageOrdered B y: Ana Rivera on 01-05-2024 Basophil percentage 10.6 g/dL 12.0-15.0 [facility] Basophil percentage 237 mg/dL 74-106 [facility] Basophil percentage 136 mmol/L 136-145 [facility] Basophil percentage 3.9 mmol/L 3.5-5.1 [facility] Basophil percentage 101 mmol/L 98-107 [facility] Basophils (Bld) [#/Vol] 10.0 10*3/uL 4.4-11.0 [facility] COVID-19 virus antigen assay Ordered By: Ana Rivera on 01-05-2024 SARS-CoV-2 (COVID-19) Ag IA.rapid Ql (Resp) [facility] Determination of erythrocyte mean corpuscular volume (MCV)Ordered By: Ana Rivera on 01-05-2024 MCV (RBC) [Entitic vol] 91.6 fL 81-99 [facility] Erythrocyte distribution wid th ratioOrdered By: Ana Rivera on 01-05-2024 Erythrocyte distribution width (RBC) [Ratio] 13.4 % 11.6-14.6 [facility] Erythrocyte distribution wid th standard deviationOrdered By: Ana Rivera on 01-05-2024 Erythrocyte distribution width (RBC) [Entitic vol] 45.5 fL 35.1-43.9 [facility] Hematocrit Auto (Bld) [Volum e fraction]Ordered By: Ana Rivera on 01-05-2024 Hematocrit (Bld) [Volume fraction] 32.7 % 37-47 [facility] No Panel InformationOrdered By: Ana Rivera on 01-05-2024 29.7 pg 27.0-32.0 [facility] 32.4 g/dL 32-36 [facility] 297 K/mm3 150-450 [facility] 9.3 fl 6.2-12.0 [facility] 60 mL/min >60 [facility] 73 mL/min >60 [facility] 54.57 ml/min [facility] 33.0 RATIO 10-20 [facility] 28.0 mmol/L 21.0-32.0 [facility] RBC Auto (Bld) [#/Vol]Ordere d By: Ana Rivera on 01-05-2024 RBC (Bld) [#/Vol] 3.57 10*6/uL 4.2-5.4 [facility] Serum or plasma calcium tai urement (mass/volume)Ordered By: Ana Rivera on 01-05-2024 Calcium [Mass/Vol] 8.6 mg/dL 8.5-10.1 [facility] Serum or plasma creatinine m easurement (mass/volume)Ordered By: Ana Rivera on 01-05-2024 Creatinine [Mass/Vol] 1.00 mg/dL 0.55-1.02 [facility] Serum or plasma urea nitroge n measurement (mass/volume)Ordered By: Ana Rivera on 01-05-2024 Urea nitrogen [Mass/Vol] 33 mg/dL 7-18 [facility] Thin prep Papanicolaou smear with manual screeningOrdered By: Ana Rivera on 01-05-2024 Thin prep Papanicolaou smear with manual screening 138 mg/dL 74-106 [facility] Thin prep Papanicolaou smear with manual screening 7 5-15 [facility] Absolute lymphocyte countOrd ered By: Ana Rivera on 01-04-2024 Lymphocytes Auto (Unsp spec) [#/Vol] 2.79 10*3/uL 0.83-4.51 [facility] Automated lymphocyte count a s percentage of total leukocytesOrdered By: Ana Rivera on 01-04-2024 Lymphocytes/100 WBC Auto (Unsp spec) 31.0 % 19-41 [facility] Basophil percentageOrdered B y: Ana Rivera on 01-04-2024 Basophils (Bld) [#/Vol] 5.5 10*3/uL 2.0-7.7 [facility] Basophils/100 WBC (Bld) 60.6 % 47-70 [facility] Basophils/100 WBC (Bld) 5.1 % 0-10 [facility] Basophils/100 WBC (Bld) 1.3 % 0-5 [facility] Basophils/100 WBC (Bld) 0.4 % 0-1 [facility] Immature granulocytes/100 WB C Auto (Bld)Ordered By: Ana Rivera on 01-04-2024 Immature granulocytes/100 WBC (Bld) 1.600 % 0.0-0.9 [facility] No Panel InformationOrdered By: Ana Rivera on 01-04-2024 0 % 0-5 [facility] Basophil percentageOrdered B y: Chavez Alcala on 01-03-2024 Chloride [Moles/Vol] 103 mmol/L 98-107 [facility] Glucose [Mass/Vol] 403 mg/dL 74-106 [facility] Comment on above: Glucose result great er than or equal to 200 mg/dLsuggests DIABETES MELLITUS per A.D.A. criteria. Hemoglobin (Bld) [Mass/Vol] 10.3 g/dL 12.0-15.0 [facility] Potassium [Moles/Vol] 4.5 mmol/L 3.5-5.1 [facility] Sodium [Moles/Vol] 137 mmol/L 136-145 [facility] WBC (Bld) [#/Vol] 9.3 10*3/uL 4.4-11.0 [facility] Determination of erythrocyte mean corpuscular volume (MCV)Ordered By: Chavez Alcala on 01-03-2024 MCV (RBC) [Entitic vol] 90.9 fL 81-99 [facility] Erythrocyte distribution wid th ratioOrdered By: Chavez Alcala on 01-03-2024 Erythrocyte distribution width (RBC) [Ratio] 13.6 % 11.6-14.6 [facility] Erythrocyte distribution wid th standard deviationOrdered By: Chavez Alcala on 01-03-2024 Erythrocyte distribution width (RBC) [Entitic vol] 45.0 fL 35.1-43.9 [facility] Hematocrit Auto (Bld) [Volum e fraction]Ordered By: Chavez Alcala on 01-03-2024 Hematocrit (Bld) [Volume fraction] 32.1 % 37-47 [facility] Laboratory - Chemistry and C hemistry - challengeOrdered By: Chavez Alcala on 01-03-2024 CO2 [Moles/Vol] 26.0 mmol/L 21.0-32.0 [facility] Urea nitrogen/Creatinine [Mass ratio] 32.7 mg/mg 10-20 [facility] - Hematology and Cell countsOrdered By: Chavez Alcala on 01-03-2024 MCH (RBC) [Entitic mass] 29.2 pg 27.0-32.0 [facility] MCHC (RBC) [Mass/Vol] 32.1 g/dL 32-36 [facility] Platelet mean volume (Bld) [Entitic vol] 9.4 fL 6.2-12.0 [facility] Platelets (Bld) [#/Vol] 291 10*3/uL 150-450 [facility] No Panel InformationOrdered By: Chavez Alcala on 01-03-2024 Estimated Creatinine Clearance Calc 48.23 ml/min [facility] Estimated GFR (MDRD) Amer 63 mL/min >60 [facility] Comment on above: GFR Calc Estimated GFR (MDRD) Non-Af Amer 52 mL/min >60 [facility] Comment on above: Non- GFR Calc RBC Auto (Bld) [#/Vol]Ordere d By: Chavez Alcala on 01-03-2024 RBC (Bld) [#/Vol] 3.53 10*6/uL 4.2-5.4 [facility] Serum or plasma calcium tai urement (mass/volume)Ordered By: Chavez Alcala on 01-03-2024 Calcium [Mass/Vol] 8.5 mg/dL 8.5-10.1 [facility] Serum or plasma creatinine m easurement (mass/volume)Ordered By: Chavez Alcala on 01-03-2024 Creatinine [Mass/Vol] 1.13 mg/dL 0.55-1.02 [facility] Comment on above: The validity of the calculated GFR & GFRAA in patients over 70 years has not been determined. Clinical correlation is essential. Serum or plasma urea nitroge n measurement (mass/volume)Ordered By: Chavez Alcala on 01-03-2024 Urea nitrogen [Mass/Vol] 37 mg/dL 7-18 [facility] Thin prep Papanicolaou smear with manual screeningOrdered By: Ana Rivera on 01-03-2024 Thin prep Papanicolaou smear with manual screening 333 mg/dL 74-106 [facility] Comment on above: MANAGEMENT OF PATIEN T CARE PER NURSING PROTOCOL Thin prep Papanicolaou smear with manual screeningOrdered By: Chavez Alcala on 01-03-2024 Thin prep Papanicolaou smear with manual screening 8 5-15 [facility] Absolute lymphocyte countOrd ered By: Hansa Cast on 01-02-2024 Lymphocytes Auto (Unsp spec) [#/Vol] 2.24 10*3/uL 0.83-4.51 [facility] Automated lymphocyte count a s percentage of total leukocytesOrdered By: Hansa Cast on 01-02-2024 Lymphocytes/100 WBC Auto (Unsp spec) 31.4 % 19-41 [facility] Basophil percentageOrdered B y: Hansa Cast on 01-02-2024 Basophil percentage 6.9 g/dL 6.4-8.2 [facility] Basophil percentage 0.30 mg/dL 0.20-1.00 [facility] Basophils/100 WBC (Bld) 0.4 % 0-1 [facility] Bilirubin [Mass/Vol] 0.30 mg/dL 0.20-1.00 [facility] Comment on above: For patients on eltr ombopag therapy, use of [employer] [place] TBIL is not recommended. Eosinophils/100 WBC (Bld) 1.1 % 0-5 [facility] Monocytes/100 WBC (Bld) 5.2 % 0-10 [facility] Neutrophils (Bld) [#/Vol] 4.3 10*3/uL 2.0-7.7 [facility] Neutrophils/100 WBC (Bld) 60.2 % 47-70 [facility] Protein [Mass/Vol] 6.9 g/dL 6.4-8.2 [facility] Immature granulocytes/100 WB C Auto (Bld)Ordered By: Hansa Serene on 01-02-2024 Immature granulocytes/100 WBC (Bld) 1.700 % 0.0-0.9 [facility] Comment on above: IG% - Immature Granu locytes (promyelocytes, myelocytes and metamyelocytes) > 1% indicates that a LEFT SHIFT is Present. Laboratory - Chemistry and C hemistry - challengeOrdered By: Hansa Cast on 01-02-2024 Albumin/Globulin [Mass ratio] 0.8 {ratio} 0.9-2.4 [facility] ALP [Catalytic activity/Vol] 56 U/L - [facility] ALT [Catalytic activity/Vol] 27 U/L [facility] Globulin (S) [Mass/Vol] 3.9 g/dL 2.2-4.2 [facility] Laboratory - Hematology and Cell countsOrdered By: Hansa Serene on 01-02-2024 Nucleated RBC/100 WBC (Bld) [Ratio] 0 % 0-5 [facility] No Panel InformationOrdered By: [facility] Se[facility] on 01-02-2024 3.9 g/dL 2.2-4.2 [facility] 0.8 RATIO 0.9-2.4 [facility] 56 U/L [facility] 27 U/L [facility] Serum or plasma thyroid stim ulating hormone (TSH) measurement (units/volume)Ordered By: [facility] Serene on 01-02-2024 TSH Qn 0.36 uIU/mL 0.358-3.74 [facility] Thin prep Papanicolaou smear with manual screeningOrdered By: [facility] Serene on 01-02-2024 Thin prep Papanicolaou smear with manual screening 3.0 g/dL 3.2-5.0 [facility] Thin prep Papanicolaou smear with manual screening 34 U/L 15-37 [facility] Thin prep Papanicolaou smear with manual screening 1.82 ng/dL 0.76-1.46 [facility] Absolute lymphocyte countOrd ered By: Raisa Mc on 01-01-2024 Lymphocytes Auto (Unsp spec) [#/Vol] 2.66 10*3/uL 0.83-4.51 [facility] Automated lymphocyte count a s percentage of total leukocytesOrdered By: Raisa Mc on 01-01-2024 Lymphocytes/100 WBC Auto (Unsp spec) 26.5 % 19-41 [facility] Basophil percentageOrdered B y: Raisa Mc on 01-01-2024 Basophils/100 WBC (Bld) 0.4 % 0-1 [facility] Chloride [Moles/Vol] 102 mmol/L 98-107 [facility] Eosinophils/100 WBC (Bld) 0.8 % 0-5 [facility] Glucose [Mass/Vol] 405 mg/dL 74-106 [facility] Comment on above: Glucose result great er than or equal to 200 mg/dLsuggests DIABETES MELLITUS per A.D.A. criteria. Hemoglobin (Bld) [Mass/Vol] 11.2 g/dL 12.0-15.0 [facility] Monocytes/100 WBC (Bld) 4.7 % 0-10 [facility] Neutrophils (Bld) [#/Vol] 6.7 10*3/uL 2.0-7.7 [facility] Neutrophils/100 WBC (Bld) 66.7 % 47-70 [facility] Potassium [Moles/Vol] 4.7 mmol/L 3.5-5.1 [facility] Sodium [Moles/Vol] 134 mmol/L 136-145 [facility] WBC (Bld) [#/Vol] 10.0 10*3/uL 4.4-11.0 [facility] Determination of erythrocyte mean corpuscular volume (MCV)Ordered By: Raisa Mc on 01-01-2024 MCV (RBC) [Entitic vol] 89.5 fL 81-99 [facility] Erythrocyte distribution wid th ratioOrdered By: Raisa Mc on 01-01-2024 Erythrocyte distribution width (RBC) [Ratio] 13.3 % 11.6-14.6 [facility] Erythrocyte distribution wid th standard deviationOrdered By: Raisa Mc on 01-01-2024 Erythrocyte distribution width (RBC) [Entitic vol] 43.3 fL 35.1-43.9 [facility] Hematocrit Auto (Bld) [Volum e fraction]Ordered By: Raisa Mc on 01-01-2024 Hematocrit (Bld) [Volume fraction] 35.0 % 37-47 [facility] Immature granulocytes/100 WB C Auto (Bld)Ordered By: Raisa Mc on 01-01-2024 Immature granulocytes/100 WBC (Bld) 0.900 % 0.0-0.9 [facility] Comment on above: IG% - Immature Granu locytes (promyelocytes, myelocytes and metamyelocytes) > 1% indicates that a LEFT SHIFT is Present. Laboratory - Chemistry and C hemistry - challengeOrdered By: Raisa Mc on 01-01-2024 CO2 [Moles/Vol] 27.0 mmol/L 21.0-32.0 [facility] Urea nitrogen/Creatinine [Mass ratio] 20.3 mg/mg 10-20 [facility] Laboratory - Hematology and Cell countsOrdered By: Raisa Mc on 01-01-2024 MCH (RBC) [Entitic mass] 28.6 pg 27.0-32.0 [facility] MCHC (RBC) [Mass/Vol] 32.0 g/dL 32-36 [facility] Nucleated RBC/100 WBC (Bld) [Ratio] 0 % 0-5 [facility] Platelet mean volume (Bld) [Entitic vol] 9.4 fL 6.2-12.0 [facility] Platelets (Bld) [#/Vol] 309 10*3/uL 150-450 [facility] No Panel InformationOrdered By: Raisa Mc on 01-01-2024 Troponin I High Sensitivity 17 pg/mL 3.0-54.0 [facility] Comment on above: Please Note: New Carolann t Units and Gender Specific Reference Ranges. For more information see Policy Stat Procedure [place] High Sensitivity Troponin (TNIH) and attachments. 17 pg/mL 3.0-54.0 [facility] D-Dimer Quantitative (PE/DVT) 1.83 FEU/ug/m 0.27-0.49 [facility] Comment on above: D-Dimer ELEVATED (>0 .49): Additional studies and clinicalassessments are indicated to conclude diagnosis of:Deep Vein Thrombosis (DVT) or Pulmonary Embolism (PE)CRITICAL VALUE VERIFIED. CALLED TO GARLAND [id number] Maurice Cast.RESULTS READ BACK BY SAME . Estimated Creatinine Clearance Calc 39.76 ml/min [facility] Estimated GFR (MDRD) Amer 50 mL/min >60 [facility] Comment on above: GFR Calc Estimated GFR (MDRD) Non-Af Amer 41 mL/min >60 [facility] Comment on above: Non- GFR Calc 1.83 FEU/ug/m 0.27-0.49 [facility] RBC Auto (Bld) [#/Vol]Ordere d By: Raisa Mc on 01-01-2024 RBC (Bld) [#/Vol] 3.91 10*6/uL 4.2-5.4 [facility] Serum or plasma calcium tai urement (mass/volume)Ordered By: Raisa Mc on 01-01-2024 Calcium [Mass/Vol] 9.1 mg/dL 8.5-10.1 [facility] Serum or plasma creatinine m easurement (mass/volume)Ordered By: Raisa Mc on 01-01-2024 Creatinine [Mass/Vol] 1.38 mg/dL 0.55-1.02 [facility] Comment on above: The validity of the calculated GFR & GFRAA in patients over 70 years has not been determined. Clinical correlation is essential. Serum or plasma urea nitroge n measurement (mass/volume)Ordered By: Raisa Mc on 01-01-2024 Urea nitrogen [Mass/Vol] 28 mg/dL 7-18 [facility] Thin prep Papanicolaou smear with manual screeningOrdered By: Raisa Mc on 01-01-2024 Thin prep Papanicolaou smear with manual screening 5 5-15 [facility] Absolute lymphocyte countOrd ered By: Lizet Linares on 12-31-2023 Lymphocytes Auto (Unsp spec) [#/Vol] 1.71 10*3/uL 0.83-4.51 [facility] Automated lymphocyte count a s percentage of total leukocytesOrdered By: Lizet Linares on 12-31-2023 Lymphocytes/100 WBC Auto (Unsp spec) 21.9 % 19-41 [facility] Basophil percentageOrdered B y: Lizet Linares on 12-31-2023 Basophil percentage 11.2 g/dL 12.0-15.0 [facility] Basophil percentage 480 mg/dL 74-106 [facility] Basophil percentage 134 mmol/L 136-145 [facility] Basophil percentage 4.9 mmol/L 3.5-5.1 [facility] Basophil percentage 101 mmol/L 98-107 [facility] Basophils (Bld) [#/Vol] 7.8 10*3/uL 4.4-11.0 [facility] Basophils (Bld) [#/Vol] 5.7 10*3/uL 2.0-7.7 [facility] Basophils/100 WBC (Bld) 0.4 % 0-1 [facility] Basophils/100 WBC (Bld) 73.1 % 47-70 [facility] Basophils/100 WBC (Bld) 3.7 % 0-10 [facility] Basophils/100 WBC (Bld) 0.0 % 0-5 [facility] Chloride [Moles/Vol] 101 mmol/L 98-107 [facility] Eosinophils/100 WBC (Bld) 0.0 % 0-5 [facility] Glucose [Mass/Vol] 480 mg/dL 74-106 [facility] Comment on above: Critical Result(s) C alled at: 08:54:01 12/31/2023 by: Dalila Bautista to Gunnar Apodaca RN ([facility]). Results read back by same.Glucose result greater than or equal to 200 mg/dLsuggests DIABETES MELLITUS per A.D.A. criteria. Hemoglobin (Bld) [Mass/Vol] 11.2 g/dL 12.0-15.0 [facility] Monocytes/100 WBC (Bld) 3.7 % 0-10 [facility] Neutrophils (Bld) [#/Vol] 5.7 10*3/uL 2.0-7.7 [facility] Neutrophils/100 WBC (Bld) 73.1 % 47-70 [facility] Potassium [Moles/Vol] 4.9 mmol/L 3.5-5.1 [facility] Sodium [Moles/Vol] 134 mmol/L 136-145 [facility] WBC (Bld) [#/Vol] 7.8 10*3/uL 4.4-11.0 [facility] Determination of erythrocyte mean corpuscular volume (MCV)Ordered By: Lizet Linares on 12-31-2023 MCV (RBC) [Entitic vol] 90.5 fL 81-99 [facility] Erythrocyte distribution wid th ratioOrdered By: Lizet Linares on 12-31-2023 Erythrocyte distribution width (RBC) [Ratio] 13.1 % 11.6-14.6 [facility] Erythrocyte distribution wid th standard deviationOrdered By: Lizet Linares on 12-31-2023 Erythrocyte distribution width (RBC) [Entitic vol] 43.3 fL 35.1-43.9 [facility] Hematocrit Auto (Bld) [Volum e fraction]Ordered By: Lizet Linares on 12-31-2023 Hematocrit (Bld) [Volume fraction] 34.4 % 37-47 [facility] Immature granulocytes/100 WB C Auto (Bld)Ordered By: Lizet Linares on 12-31-2023 Immature granulocytes/100 WBC (Bld) 0.900 % 0.0-0.9 [facility] Comment on above: IG% - Immature Granu locytes (promyelocytes, myelocytes and metamyelocytes) > 1% indicates that a LEFT SHIFT is Present. Laboratory - Chemistry and C hemistry - challengeOrdered By: Lizet Linares on 12-31-2023 CO2 [Moles/Vol] 24.0 mmol/L 21.0-32.0 [facility] Urea nitrogen/Creatinine [Mass ratio] 19.6 mg/mg 10-20 [facility] Laboratory - Hematology and Cell countsOrdered By: Lizet Linares on 12-31-2023 MCH (RBC) [Entitic mass] 29.5 pg 27.0-32.0 [facility] MCHC (RBC) [Mass/Vol] 32.6 g/dL 32-36 [facility] Nucleated RBC/100 WBC (Bld) [Ratio] 0 % 0-5 [facility] Platelet mean volume (Bld) [Entitic vol] 9.9 fL 6.2-12.0 [facility] Platelets (Bld) [#/Vol] 257 10*3/uL 150-450 [facility] No Panel InformationOrdered By: Lizet Linares on 12-31-2023 Estimated GFR (MDRD) Amer 50 mL/min >60 [facility] Comment on above: GFR Calc Estimated GFR (MDRD) Non-Af Amer 41 mL/min >60 [facility] Comment on above: Non- GFR Calc 29.5 pg 27.0-32.0 [facility] 32.6 g/dL 32-36 [facility] 257 K/mm3 150-450 [facility] 9.9 fl 6.2-12.0 [facility] 0 % 0-5 [facility] 41 mL/min >60 [facility] 50 mL/min >60 [facility] 19.6 RATIO 10-20 [facility] 24.0 mmol/L 21.0-32.0 [facility] RBC Auto (Bld) [#/Vol]Ordere d By: Lizet Linares on 12-31-2023 RBC (Bld) [#/Vol] 3.80 10*6/uL 4.2-5.4 [facility] Serum or plasma calcium tai urement (mass/volume)Ordered By: Lizet Linares on 12-31-2023 Calcium [Mass/Vol] 9.3 mg/dL 8.5-10.1 [facility] Serum or plasma creatinine m easurement (mass/volume)Ordered By: Lizet Linares on 12-31-2023 Creatinine [Mass/Vol] 1.38 mg/dL 0.55-1.02 [facility] Comment on above: The validity of the calculated GFR & GFRAA in patients over 70 years has not been determined. Clinical correlation is essential. Serum or plasma urea nitroge n measurement (mass/volume)Ordered By: Lizet Linarse on 12-31-2023 Urea nitrogen [Mass/Vol] 27 mg/dL 7-18 [facility] Thin prep Papanicolaou smear with manual screeningOrdered By: Lizet Linares on 12-31-2023 Thin prep Papanicolaou smear with manual screening 9 5-15 [facility] Bacteria identified Cx Nom ( U)Ordered By: Lizet Linares on 12-29-2023 Culture, urine Proteus mirabilis [facility] Bilirubin Test strip Ql (U)O rdered By: Lizet Linares on 12-29-2023 Bilirubin Ql (U) Negative Negative [facility] Culture, urineOrdered By: Junie Linares on 12-29-2023 Bacteria identified Cx Nom (U) Proteus mirabilis [facility] Ketones Test strip Ql (U)Ord ered By: Lizet Linares on 12-29-2023 Ketones Ql (U) Negative Negative [facility] Nitrite Test strip Ql (U)Ord ered By: Lizet Linares on 12-29-2023 Nitrite Ql (U) Negative Negative [facility] Protein Test strip Ql (U)Ord ered By: Lizet Linares on 12-29-2023 Protein Ql (U) 30 mg/dl Negative [facility] Urine blood detectionOrdered By: Lizet Linares on 12-29-2023 RBC Ql (U) 250 /ul Negative [facility] Urine clarityOrdered By: Bart Linares on 12-29-2023 Clarity (U) Cloudy Clear [facility] Urine color determinationOrd ered By: Lizet Linares on 12-29-2023 Color (U) Yellow Yellow [facility] Urine glucose detectionOrder ed By: Lizet Linares on 12-29-2023 Glucose Ql (U) 1000 mg/dl Normal [facility] Urine leukocyte esterase det ection by dipstickOrdered By: Lizet Linares on 12-29-2023 Leukocyte esterase Test strip Ql (U) 500 /ul Negative [facility] Urine pHOrdered By: Frank Linares on 12-29-2023 pH (U) 6.5 [pH] 5.0 - 8.0 [facility] Urine specific gravity measu rementOrdered By: Lizet Linares on 12-29-2023 Specific gravity (U) [Rel density] 1.005 1.002-1.03 0 [facility] Urine urobilinogen measureme ntOrdered By: Lizet Linares on 12-29-2023 Urobilinogen Ql (U) Normal mg/dl Normal [facility] Absolute lymphocyte countOrd ered By: Lizet Linares on 12-24-2023 Lymphocytes Auto (Unsp spec) [#/Vol] 2.44 10*3/uL 0.83-4.51 [facility] Automated lymphocyte count a s percentage of total leukocytesOrdered By: Lizet Linares on 12-24-2023 Lymphocytes/100 WBC Auto (Unsp spec) 48.0 % 19-41 [facility] Basophil percentageOrdered B y: Lizet Linares on 12-24-2023 Basophil percentage 11.2 g/dL 12.0-15.0 [facility] Basophil percentage 215 mg/dL 74-106 [facility] Basophil percentage 136 mmol/L 136-145 [facility] Basophil percentage 4.1 mmol/L 3.5-5.1 [facility] Basophil percentage 105 mmol/L 98-107 [facility] Basophils (Bld) [#/Vol] 5.1 10*3/uL 4.4-11.0 [facility] Basophils (Bld) [#/Vol] 2.2 10*3/uL 2.0-7.7 [facility] Basophils/100 WBC (Bld) 0.6 % 0-1 [facility] Basophils/100 WBC (Bld) 43.3 % 47-70 [facility] Basophils/100 WBC (Bld) 6.9 % 0-10 [facility] Basophils/100 WBC (Bld) 1.0 % 0-5 [facility] Chloride [Moles/Vol] 105 mmol/L 98-107 [facility] Eosinophils/100 WBC (Bld) 1.0 % 0-5 [facility] Glucose [Mass/Vol] 215 mg/dL 74-106 [facility] Comment on above: Glucose result great er than or equal to 200 mg/dLsuggests DIABETES MELLITUS per A.D.A. criteria. Hemoglobin (Bld) [Mass/Vol] 11.2 g/dL 12.0-15.0 [facility] Monocytes/100 WBC (Bld) 6.9 % 0-10 [facility] Neutrophils (Bld) [#/Vol] 2.2 10*3/uL 2.0-7.7 [facility] Neutrophils/100 WBC (Bld) 43.3 % 47-70 [facility] Potassium [Moles/Vol] 4.1 mmol/L 3.5-5.1 [facility] Sodium [Moles/Vol] 136 mmol/L 136-145 [facility] WBC (Bld) [#/Vol] 5.1 10*3/uL 4.4-11.0 [facility] Determination of erythrocyte mean corpuscular volume (MCV)Ordered By: Lizet Linares on 12-24-2023 MCV (RBC) [Entitic vol] 91.1 fL 81-99 [facility] Erythrocyte distribution wid th ratioOrdered By: [facility] Taytal on 12-24-2023 Erythrocyte distribution width (RBC) [Ratio] 13.7 % 11.6-14.6 [facility] Erythrocyte distribution wid th standard deviationOrdered By: [facility] Lina[facility] on 12-24-2023 Erythrocyte distribution width (RBC) [Entitic vol] 46.0 fL 35.1-43.9 [facility] Hematocrit Auto (Bld) [Volum e fraction]Ordered By: christacumberlandnatasha Crosstal on 12-24-2023 Hematocrit (Bld) [Volume fraction] 33.8 % 37-47 [facility] Immature granulocytes/100 WB C Auto (Bld)Ordered By: [facility] Linares on 12-24-2023 Immature granulocytes/100 WBC (Bld) 0.200 % 0.0-0.9 [facility] Comment on above: IG% - Immature Granu locytes (promyelocytes, myelocytes and metamyelocytes) > 1% indicates that a LEFT SHIFT is Present. Laboratory - Chemistry and C hemistry - challengeOrdered By: christacumberlandnatasha Linares on 12-24-2023 CO2 [Moles/Vol] 26.0 mmol/L 21.0-32.0 [facility] Urea nitrogen/Creatinine [Mass ratio] 20.2 mg/mg 10-20 [facility] Laboratory - Hematology and Cell countsOrdered By: [facility] Cros[facility]al on 12-24-2023 MCH (RBC) [Entitic mass] 30.2 pg 27.0-32.0 [facility] MCHC (RBC) [Mass/Vol] 33.1 g/dL 32-36 [facility] Nucleated RBC/100 WBC (Bld) [Ratio] 0 % 0-5 [facility] Platelet mean volume (Bld) [Entitic vol] 9.5 fL 6.2-12.0 [facility] Platelets (Bld) [#/Vol] 229 10*3/uL 150-450 [facility] No Panel InformationOrdered By: Lizet Linares on 12-24-2023 Estimated GFR (MDRD) Amer 66 mL/min >60 [facility] Comment on above: GFR Calc Estimated GFR (MDRD) Non-Af Amer 54 mL/min >60 [facility] Comment on above: Non- GFR Calc 30.2 pg 27.0-32.0 [facility] 33.1 g/dL 32-36 [facility] 229 K/mm3 150-450 [facility] 9.5 fl 6.2-12.0 [facility] 0 % 0-5 [facility] 54 mL/min >60 [facility] 66 mL/min >60 [facility] 20.2 RATIO 10-20 [facility] 26.0 mmol/L 21.0-32.0 [facility] RBC Auto (Bld) [#/Vol]Ordere d By: Lizet Linares on 12-24-2023 RBC (Bld) [#/Vol] 3.71 10*6/uL 4.2-5.4 [facility] Serum or plasma calcium tai urement (mass/volume)Ordered By: Lizet Linares on 12-24-2023 Calcium [Mass/Vol] 8.7 mg/dL 8.5-10.1 [facility] Serum or plasma creatinine m easurement (mass/volume)Ordered By: Lizet Linares on 12-24-2023 Creatinine [Mass/Vol] 1.09 mg/dL 0.55-1.02 [facility] Comment on above: The validity of the calculated GFR & GFRAA in patients over 70 years has not been determined. Clinical correlation is essential. Serum or plasma urea nitroge n measurement (mass/volume)Ordered By: Lizet Linares on 12-24-2023 Urea nitrogen [Mass/Vol] 22 mg/dL 7-18 [facility] Thin prep Papanicolaou smear with manual screeningOrdered By: Lizet Linares on 12-24-2023 Thin prep Papanicolaou smear with manual screening 5 5-15 [facility] Absolute lymphocyte countOrd ered By: Lizet Linares on 12-17-2023 Lymphocytes Auto (Unsp spec) [#/Vol] 2.73 10*3/uL 0.83-4.51 [facility] Automated lymphocyte count a s percentage of total leukocytesOrdered By: Lizet Linares on 12-17-2023 Lymphocytes/100 WBC Auto (Unsp spec) 35.0 % 19-41 [facility] Basophil percentageOrdered B y: Lizet Linares on 12-17-2023 Basophil percentage 11.2 g/dL 12.0-15.0 [facility] Basophil percentage 295 mg/dL 74-106 [facility] Basophil percentage 135 mmol/L 136-145 [facility] Basophil percentage 4.1 mmol/L 3.5-5.1 [facility] Basophil percentage 101 mmol/L 98-107 [facility] Basophils (Bld) [#/Vol] 7.8 10*3/uL 4.4-11.0 [facility] Basophils (Bld) [#/Vol] 4.4 10*3/uL 2.0-7.7 [facility] Basophils/100 WBC (Bld) 0.6 % 0-1 [facility] Basophils/100 WBC (Bld) 56.1 % 47-70 [facility] Basophils/100 WBC (Bld) 6.9 % 0-10 [facility] Basophils/100 WBC (Bld) 1.0 % 0-5 [facility] Chloride [Moles/Vol] 101 mmol/L 98-107 [facility] Eosinophils/100 WBC (Bld) 1.0 % 0-5 [facility] Glucose [Mass/Vol] 295 mg/dL 74-106 [facility] Comment on above: Glucose result great er than or equal to 200 mg/dLsuggests DIABETES MELLITUS per A.D.A. criteria. Hemoglobin (Bld) [Mass/Vol] 11.2 g/dL 12.0-15.0 [facility] Monocytes/100 WBC (Bld) 6.9 % 0-10 [facility] Neutrophils (Bld) [#/Vol] 4.4 10*3/uL 2.0-7.7 [facility] Neutrophils/100 WBC (Bld) 56.1 % 47-70 [facility] Potassium [Moles/Vol] 4.1 mmol/L 3.5-5.1 [facility] Sodium [Moles/Vol] 135 mmol/L 136-145 [facility] WBC (Bld) [#/Vol] 7.8 10*3/uL 4.4-11.0 [facility] Determination of erythrocyte mean corpuscular volume (MCV)Ordered By: Lizet Linares on 12-17-2023 MCV (RBC) [Entitic vol] 90.9 fL 81-99 [facility] Erythrocyte distribution wid th ratioOrdered By: [facility] Cros[facility]al on 12-17-2023 Erythrocyte distribution width (RBC) [Ratio] 14.0 % 11.6-14.6 [facility] Erythrocyte distribution wid th standard deviationOrdered By: [facility] Lina[facility] on 12-17-2023 Erythrocyte distribution width (RBC) [Entitic vol] 46.7 fL 35.1-43.9 [facility] Hematocrit Auto (Bld) [Volum e fraction]Ordered By: [facility] Linares on 12-17-2023 Hematocrit (Bld) [Volume fraction] 34.1 % 37-47 [facility] Immature granulocytes/100 WB C Auto (Bld)Ordered By: marcelle Linares on 12-17-2023 Immature granulocytes/100 WBC (Bld) 0.400 % 0.0-0.9 [facility] Comment on above: IG% - Immature Granu locytes (promyelocytes, myelocytes and metamyelocytes) > 1% indicates that a LEFT SHIFT is Present. Laboratory - Chemistry and C hemistry - challengeOrdered By: Lizet Linares on 12-17-2023 CO2 [Moles/Vol] 28.0 mmol/L 21.0-32.0 [facility] Urea nitrogen/Creatinine [Mass ratio] 22.7 mg/mg 10-20 [facility] - Hematology and Cell countsOrdered By: Lizet Linares on 12-17-2023 MCH (RBC) [Entitic mass] 29.9 pg 27.0-32.0 [facility] MCHC (RBC) [Mass/Vol] 32.8 g/dL 32-36 [facility] Nucleated RBC/100 WBC (Bld) [Ratio] 0 % 0-5 [facility] Platelet mean volume (Bld) [Entitic vol] 9.5 fL 6.2-12.0 [facility] Platelets (Bld) [#/Vol] 323 10*3/uL 150-450 [facility] No Panel InformationOrdered By: Lizet Linares on 12-17-2023 Estimated GFR (MDRD) Amer 55 mL/min >60 [facility] Comment on above: GFR Calc Estimated GFR (MDRD) Non-Af Amer 45 mL/min >60 [facility] Comment on above: Non- GFR Calc 29.9 pg 27.0-32.0 [facility] 32.8 g/dL -36 [facility] 323 K/mm3 150-450 [facility] 9.5 fl 6.2-12.0 [facility] 0 % 0-5 [facility] 45 mL/min >60 [facility] 55 mL/min >60 [facility] 22.7 RATIO 10-20 [facility] 28.0 mmol/L 21.0-32.0 [facility] RBC Auto (Bld) [#/Vol]Ordere d By: Lizet Linares on 12-17-2023 RBC (Bld) [#/Vol] 3.75 10*6/uL 4.2-5.4 [facility] Serum or plasma calcium tai urement (mass/volume)Ordered By: Lizet Linares on 12-17-2023 Calcium [Mass/Vol] 8.9 mg/dL 8.5-10.1 [facility] Serum or plasma creatinine m easurement (mass/volume)Ordered By: Lizet Linares on 12-17-2023 Creatinine [Mass/Vol] 1.28 mg/dL 0.55-1.02 [facility] Comment on above: The validity of the calculated GFR & GFRAA in patients over 70 years has not been determined. Clinical correlation is essential. Serum or plasma urea nitroge n measurement (mass/volume)Ordered By: Lizet Linares on 12-17-2023 Urea nitrogen [Mass/Vol] 29 mg/dL 7-18 [facility] Thin prep Papanicolaou smear with manual screeningOrdered By: Lizet Linares on 12-17-2023 Thin prep Papanicolaou smear with manual screening 6 5-15 [facility] Absolute lymphocyte countOrd ered By: marcelle Linares on 12-10-2023 Lymphocytes Auto (Unsp spec) [#/Vol] 2.72 10*3/uL 0.83-4.51 [facility] Automated lymphocyte count a s percentage of total leukocytesOrdered By: Lizet Linares on 12-10-2023 Lymphocytes/100 WBC Auto (Unsp spec) 45.2 % 19-41 [facility] Basophil percentageOrdered B y: Lizet Linares on 12-10-2023 Basophil percentage 10.1 g/dL 12.0-15.0 [facility] Basophil percentage 352 mg/dL 74-106 [facility] Basophil percentage 135 mmol/L 136-145 [facility] Basophil percentage 4.3 mmol/L 3.5-5.1 [facility] Basophil percentage 103 mmol/L 98-107 [facility] Basophils (Bld) [#/Vol] 6.0 10*3/uL 4.4-11.0 [facility] Basophils (Bld) [#/Vol] 2.8 10*3/uL 2.0-7.7 [facility] Basophils/100 WBC (Bld) 0.8 % 0-1 [facility] Basophils/100 WBC (Bld) 46.4 % 47-70 [facility] Basophils/100 WBC (Bld) 6.3 % 0-10 [facility] Basophils/100 WBC (Bld) 0.5 % 0-5 [facility] Chloride [Moles/Vol] 103 mmol/L 98-107 [facility] Eosinophils/100 WBC (Bld) 0.5 % 0-5 [facility] Glucose [Mass/Vol] 352 mg/dL 74-106 [facility] Comment on above: Glucose result great er than or equal to 200 mg/dLsuggests DIABETES MELLITUS per A.D.A. criteria. Hemoglobin (Bld) [Mass/Vol] 10.1 g/dL 12.0-15.0 [facility] Monocytes/100 WBC (Bld) 6.3 % 0-10 [facility] Neutrophils (Bld) [#/Vol] 2.8 10*3/uL 2.0-7.7 [facility] Neutrophils/100 WBC (Bld) 46.4 % 47-70 [facility] Potassium [Moles/Vol] 4.3 mmol/L 3.5-5.1 [facility] Sodium [Moles/Vol] 135 mmol/L 136-145 [facility] WBC (Bld) [#/Vol] 6.0 10*3/uL 4.4-11.0 [facility] Determination of erythrocyte mean corpuscular volume (MCV)Ordered By: Lizet Linares on 12-10-2023 MCV (RBC) [Entitic vol] 91.0 fL 81-99 [facility] Erythrocyte distribution wid th ratioOrdered By: Hollycumberlandnatasha Linares on 12-10-2023 Erythrocyte distribution width (RBC) [Ratio] 13.6 % 11.6-14.6 [facility] Erythrocyte distribution wid th standard deviationOrdered By: Hollycumberlandnatasha Linares on 12-10-2023 Erythrocyte distribution width (RBC) [Entitic vol] 45.5 fL 35.1-43.9 [facility] Hematocrit Auto (Bld) [Volum e fraction]Ordered By: Lizet Linares on 12-10-2023 Hematocrit (Bld) [Volume fraction] 31.4 % 37-47 [facility] Immature granulocytes/100 WB C Auto (Bld)Ordered By: Lizet Linares on 12-10-2023 Immature granulocytes/100 WBC (Bld) 0.800 % 0.0-0.9 [facility] Comment on above: IG% - Immature Granu locytes (promyelocytes, myelocytes and metamyelocytes) > 1% indicates that a LEFT SHIFT is Present. Laboratory - Chemistry and C hemistry - challengeOrdered By: Lizet Linares on 12-10-2023 CO2 [Moles/Vol] 26.0 mmol/L 21.0-32.0 [facility] Urea nitrogen/Creatinine [Mass ratio] 24.2 mg/mg 10-20 [facility] Laboratory - Hematology and Cell countsOrdered By: Lizet Linares on 12-10-2023 MCH (RBC) [Entitic mass] 29.3 pg 27.0-32.0 [facility] MCHC (RBC) [Mass/Vol] 32.2 g/dL 32-36 [facility] Nucleated RBC/100 WBC (Bld) [Ratio] 0 % 0-5 [facility] Platelet mean volume (Bld) [Entitic vol] 10.1 fL 6.2-12.0 [facility] Platelets (Bld) [#/Vol] 268 10*3/uL 150-450 [facility] No Panel InformationOrdered By: Lizet Linares on 12-10-2023 Estimated GFR (MDRD) Amer 53 mL/min >60 [facility] Comment on above: GFR Calc Estimated GFR (MDRD) Non-Af Amer 44 mL/min >60 [facility] Comment on above: Non- GFR Calc 29.3 pg 27.0-32.0 [facility] 32.2 g/dL 32-36 [facility] 268 K/mm3 150-450 [facility] 10.1 fl 6.2-12.0 [facility] 0 % 0-5 [facility] 44 mL/min >60 [facility] 53 mL/min >60 [facility] 24.2 RATIO 10-20 [facility] 26.0 mmol/L 21.0-32.0 [facility] RBC Auto (Bld) [#/Vol]Ordere d By: Lizet Linares on 12-10-2023 RBC (Bld) [#/Vol] 3.45 10*6/uL 4.2-5.4 [facility] Serum or plasma calcium tai urement (mass/volume)Ordered By: Lizet Linares on 12-10-2023 Calcium [Mass/Vol] 8.5 mg/dL 8.5-10.1 [facility] Serum or plasma creatinine m easurement (mass/volume)Ordered By: Lizet Linares on 12-10-2023 Creatinine [Mass/Vol] 1.32 mg/dL 0.55-1.02 [facility] Comment on above: The validity of the calculated GFR & GFRAA in patients over 70 years has not been determined. Clinical correlation is essential. Serum or plasma urea nitroge n measurement (mass/volume)Ordered By: Junieshanicenatasha Linares on 12-10-2023 Urea nitrogen [Mass/Vol] 32 mg/dL 7-18 [facility] Thin prep Papanicolaou smear with manual screeningOrdered By: Liezt Linares on 12-10-2023 Thin prep Papanicolaou smear with manual screening 6 5-15 [facility] Absolute lymphocyte countOrd ered By: Hollyjanellnatasha Linares on 11-26-2023 Lymphocytes Auto (Unsp spec) [#/Vol] 2.84 10*3/uL 0.83-4.51 [facility] Automated lymphocyte count a s percentage of total leukocytesOrdered By: Lizet Linares on 11-26-2023 Lymphocytes/100 WBC Auto (Unsp spec) 40.7 % 19-41 [facility] Basophil percentageOrdered B y: Hollyjanellnatasha Linares on 11-26-2023 Basophil percentage 10.8 g/dL 12.0-15.0 [facility] Basophil percentage 230 mg/dL 74-106 [facility] Basophil percentage 7.1 g/dL 6.4-8.2 [facility] Basophil percentage 0.60 mg/dL 0.20-1.00 [facility] Basophil percentage 244 mg/dL <200 [facility] Basophil percentage 353 mg/dL <199 [facility] Basophil percentage 135 mmol/L 136-145 [facility] Basophil percentage 4.2 mmol/L 3.5-5.1 [facility] Basophil percentage 102 mmol/L 98-107 [facility] Basophils (Bld) [#/Vol] 7.0 10*3/uL 4.4-11.0 [facility] Basophils (Bld) [#/Vol] 3.5 10*3/uL 2.0-7.7 [facility] Basophils/100 WBC (Bld) 1.0 % 0-1 [facility] Basophils/100 WBC (Bld) 50.3 % 47-70 [facility] Basophils/100 WBC (Bld) 5.3 % 0-10 [facility] Basophils/100 WBC (Bld) 2.0 % 0-5 [facility] Bilirubin [Mass/Vol] 0.60 mg/dL 0.20-1.00 [facility] Comment on above: For patients on eltr ombopag therapy, use of [place] TBIL is not recommended. Chloride [Moles/Vol] 102 mmol/L 98-107 [facility] Cholesterol [Mass/Vol] 244 mg/dL <200 [facility] Comment on above: <200 mg/dL Desirable 200-240 mg/dL Borderline >240 mg/dL High Risk Eosinophils/100 WBC (Bld) 2.0 % 0-5 [facility] Glucose [Mass/Vol] 230 mg/dL 74-106 [facility] Comment on above: Glucose result great er than or equal to 200 mg/dLsuggests DIABETES MELLITUS per A.D.A. criteria. Hemoglobin (Bld) [Mass/Vol] 10.8 g/dL 12.0-15.0 [facility] Monocytes/100 WBC (Bld) 5.3 % 0-10 [facility] Neutrophils (Bld) [#/Vol] 3.5 10*3/uL 2.0-7.7 [facility] Neutrophils/100 WBC (Bld) 50.3 % 47-70 [facility] Potassium [Moles/Vol] 4.2 mmol/L 3.5-5.1 [facility] Protein [Mass/Vol] 7.1 g/dL 6.4-8.2 [facility] Sodium [Moles/Vol] 135 mmol/L 136-145 [facility] Triglyceride [Mass/Vol] 353 mg/dL <199 [facility] Comment on above: The drugs N-Acetylcy steine and Metamizole may falsely depress this assay.Serum Triglycerides Reference Interval Normal <150 mg/dL Borderline high 150 - 199 mg/dL High 200 - 499 mg/dL Very High > or = 500 mg/dL WBC (Bld) [#/Vol] 7.0 10*3/uL 4.4-11.0 [facility] Determination of erythrocyte mean corpuscular volume (MCV)Ordered By: Efewongbe Oleghe on 11-26-2023 MCV (RBC) [Entitic vol] 94.2 fL 81-99 [facility] Erythrocyte distribution wid th ratioOrdered By: [facility] Crosstal on 11-26-2023 Erythrocyte distribution width (RBC) [Ratio] 14.4 % 11.6-14.6 [facility] Erythrocyte distribution wid th standard deviationOrdered By: [facility] Taytal on 11-26-2023 Erythrocyte distribution width (RBC) [Entitic vol] 49.4 fL 35.1-43.9 [facility] Hematocrit Auto (Bld) [Volum e fraction]Ordered By: [facility] Taytal on 11-26-2023 Hematocrit (Bld) [Volume fraction] 33.9 % 37-47 [facility] Immature granulocytes/100 WB C Auto (Bld)Ordered By: [facility] on 11-26-2023 Immature granulocytes/100 WBC (Bld) 0.700 % 0.0-0.9 [facility] Comment on above: IG% - Immature Granu locytes (promyelocytes, myelocytes and metamyelocytes) > 1% indicates that a LEFT SHIFT is Present. Laboratory - Chemistry and C hemistry - challengeOrdered By: [facility] Crosstal on 11-26-2023 Albumin/Globulin [Mass ratio] 0.9 {ratio} 0.9-2.4 [facility] ALP [Catalytic activity/Vol] 62 U/L 45-117 [facility] ALT [Catalytic activity/Vol] 29 U/L 13-56 [facility] Cholesterol in HDL (Body fld) [Mass/Vol] 23 mg/dL >40 [facility] Comment on above: The drugs N-Acetylcy steine and Metamizole may falsely depress this assay. Reference Range HDL <40 mg/dL Low HDL Cholesterol HDL >or= 60 mg/dL High HDL Cholesterol Cholesterol in LDL (Body fld) [Moles/Vol] 150 mg/dL 0-130 [facility] Cholesterol in VLDL Calc [Moles/Vol] 71 mg/dL 5-40 [facility] CO2 [Moles/Vol] 28.0 mmol/L 21.0-32.0 [facility] Globulin (S) [Mass/Vol] 3.8 g/dL 2.2-4.2 [facility] Urea nitrogen/Creatinine [Mass ratio] 11.7 mg/mg 10-20 [facility] Laboratory - Hematology and Cell countsOrdered By: Lizet Linares on 11-26-2023 MCH (RBC) [Entitic mass] 30.0 pg 27.0-32.0 [facility] MCHC (RBC) [Mass/Vol] 31.9 g/dL 32-36 [facility] Nucleated RBC/100 WBC (Bld) [Ratio] 0 % 0-5 [facility] Platelets (Bld) [#/Vol] 264 10*3/uL 150-450 [facility] No Panel InformationOrdered By: Lizet Linares on 11-26-2023 Estimated GFR (MDRD) Amer 39 mL/min >60 [facility] Comment on above: GFR Calc Estimated GFR (MDRD) Non-Af Amer 32 mL/min >60 [facility] Comment on above: Non- GFR Calc 30.0 pg 27.0-32.0 [facility] 31.9 g/dL 32-36 [facility] 264 K/mm3 150-450 [facility] 0 % 0-5 [facility] 32 mL/min >60 [facility] 39 mL/min >60 [facility] 11.7 RATIO 10-20 [facility] 3.8 g/dL 2.2-4.2 [facility] 0.9 RATIO 0.9-2.4 [facility] 62 U/L 45-117 [facility] 29 U/L 13-56 [facility] 28.0 mmol/L 21.0-32.0 [facility] Platelet mean volume Fercho-Ec ker (Bld) [Entitic vol]Ordered By: Lizet Linares on 11-26-2023 Platelet mean volume (Bld) [Entitic vol] 9.9 fL 6.2-12.0 [facility] RBC Auto (Bld) [#/Vol]Ordere d By: Lizet Linares on 11-26-2023 RBC (Bld) [#/Vol] 3.60 10*6/uL 4.2-5.4 [facility] Serum or plasma calcium tai urement (mass/volume)Ordered By: Lizet Linares on 11-26-2023 Calcium [Mass/Vol] 9.1 mg/dL 8.5-10.1 [facility] Serum or plasma creatinine m easurement (mass/volume)Ordered By: Lizet Linares on 11-26-2023 Creatinine [Mass/Vol] 1.71 mg/dL 0.55-1.02 [facility] Comment on above: The validity of the calculated GFR & GFRAA in patients over 70 years has not been determined. Clinical correlation is essential. Serum or plasma thyroid stim ulating hormone (TSH) measurement (units/volume)Ordered By: Lizet Linares on 11-26-2023 TSH Qn 99.40 uIU/mL 0.358-3.74 [facility] Serum or plasma urea nitroge n measurement (mass/volume)Ordered By: Lizet Linares on 11-26-2023 Urea nitrogen [Mass/Vol] 20 mg/dL 7-18 [facility] Thin prep Papanicolaou smear with manual screeningOrdered By: [facility] Linares on 11-26-2023 Thin prep Papanicolaou smear with manual screening 3.3 g/dL 3.2-5.0 [facility] Thin prep Papanicolaou smear with manual screening 33 U/L 15-37 [facility] Thin prep Papanicolaou smear with manual screening 5 5-15 [facility] Whole blood hemoglobin A1c/t otal hemoglobin ratio (mass fraction)Ordered By: Lizet Linares on 11-26-2023 HbA1c (Bld) [Mass fraction] 13.1 % 3.8-5.6 [facility] Comment on above: Normal < 5.7 % Predi abetic 5.7 - 6.4 % Diabetic >or= 6.5 % Please note range changes. COVID-19 virus antigen assay Ordered By: Paresh Hernandez on 11-24-2023 SARS-CoV-2 (COVID-19) Ag IA.rapid Ql (Resp) [facility] Thin prep Papanicolaou smear with manual screeningOrdered By: Paresh Hernandez on 11-24-2023 Thin prep Papanicolaou smear with manual screening 128 mg/dL 74-106 [facility] Comment on above: MANAGEMENT OF PATIEN T CARE PER NURSING PROTOCOL Basophil percentageOrdered B y: Paresh Hernandez on 11-23-2023 Basophil percentage 139 mg/dL 74-106 [facility] Basophil percentage 136 mmol/L 136-145 [facility] Basophil percentage 4.4 mmol/L 3.5-5.1 [facility] Basophil percentage 106 mmol/L 98-107 [facility] Chloride [Moles/Vol] 106 mmol/L 98-107 [facility] Glucose [Mass/Vol] 139 mg/dL 74-106 [facility] Comment on above: Fasting Glucose resu lt greater than or equal to 126 mg/dL suggests DIABETES MELLITUS per A.D.A. criteria. Potassium [Moles/Vol] 4.4 mmol/L 3.5-5.1 [facility] Sodium [Moles/Vol] 136 mmol/L 136-145 [facility] Laboratory - Chemistry and C hemistry - challengeOrdered By: Paresh Hernadnez on 11-23-2023 CO2 [Moles/Vol] 25.0 mmol/L 21.0-32.0 [facility] Urea nitrogen/Creatinine [Mass ratio] 8.1 mg/mg 08-13 [facility] No Panel InformationOrdered By: Paresh Hernandez on 11-23-2023 Estimated Creatinine Clearance Calc 33.99 ml/min [facility] Estimated GFR (MDRD) Amer 39 mL/min >60 [facility] Comment on above: GFR Calc Estimated GFR (MDRD) Non-Af Amer 32 mL/min >60 [facility] Comment on above: Non- GFR Calc 32 mL/min >60 [facility] 39 mL/min >60 [facility] 33.99 ml/min [facility] 8.1 RATIO 08-13 [facility] 25.0 mmol/L 21.0-32.0 [facility] Serum or plasma calcium tai urement (mass/volume)Ordered By: Paresh Hernandez on 11-23-2023 Calcium [Mass/Vol] 9.4 mg/dL 8.5-10.1 [facility] Serum or plasma creatinine m easurement (mass/volume)Ordered By: Paresh Hernandez on 11-23-2023 Creatinine [Mass/Vol] 1.72 mg/dL 0.55-1.02 [facility] Comment on above: The validity of the calculated GFR & GFRAA in patients over 70 years has not been determined. Clinical correlation is essential. Serum or plasma urea nitroge n measurement (mass/volume)Ordered By: Paresh Hernandez on 11-23-2023 Urea nitrogen [Mass/Vol] 14 mg/dL 7-18 [facility] Thin prep Papanicolaou smear with manual screeningOrdered By: Paresh Hernandez on 11-23-2023 Thin prep Papanicolaou smear with manual screening 5 5-15 [facility] Absolute lymphocyte countOrd ered By: John Shaw on 11-22-2023 Lymphocytes Auto (Unsp spec) [#/Vol] 2.87 10*3/uL 0.83-4.51 [facility] Automated lymphocyte count a s percentage of total leukocytesOrdered By: John Shaw on 11-22-2023 Lymphocytes/100 WBC Auto (Unsp spec) 41.6 % 19-41 [facility] Basophil percentageOrdered B y: John Shaw on 11-22-2023 Basophil percentage 11.0 g/dL 12.0-15.0 [facility] Basophils (Bld) [#/Vol] 6.9 10*3/uL 4.4-11.0 [facility] Basophils (Bld) [#/Vol] 3.6 10*3/uL 2.0-7.7 [facility] Basophils/100 WBC (Bld) 0.6 % 0-1 [facility] Basophils/100 WBC (Bld) 51.4 % 47-70 [facility] Basophils/100 WBC (Bld) 4.1 % 0-10 [facility] Basophils/100 WBC (Bld) 1.9 % 0-5 [facility] Eosinophils/100 WBC (Bld) 1.9 % 0-5 [facility] Hemoglobin (Bld) [Mass/Vol] 11.0 g/dL 12.0-15.0 [facility] Monocytes/100 WBC (Bld) 4.1 % 0-10 [facility] Neutrophils (Bld) [#/Vol] 3.6 10*3/uL 2.0-7.7 [facility] Neutrophils/100 WBC (Bld) 51.4 % 47-70 [facility] WBC (Bld) [#/Vol] 6.9 10*3/uL 4.4-11.0 [facility] Determination of erythrocyte mean corpuscular volume (MCV)Ordered By: John Shaw on 11-22-2023 MCV (RBC) [Entitic vol] 91.4 fL 81-99 [facility] Erythrocyte distribution wid th ratioOrdered By: John Shaw on 11-22-2023 Erythrocyte distribution width (RBC) [Ratio] 14.6 % 11.6-14.6 [facility] Erythrocyte distribution wid th standard deviationOrdered By: John Shaw on 11-22-2023 Erythrocyte distribution width (RBC) [Entitic vol] 48.6 fL 35.1-43.9 [facility] Hematocrit Auto (Bld) [Volum e fraction]Ordered By: John Shaw on 11-22-2023 Hematocrit (Bld) [Volume fraction] 33.8 % 37-47 [facility] Immature granulocytes/100 WB C Auto (Bld)Ordered By: John Shaw on 11-22-2023 Immature granulocytes/100 WBC (Bld) 0.400 % 0.0-0.9 [facility] Comment on above: IG% - Immature Granu locytes (promyelocytes, myelocytes and metamyelocytes) > 1% indicates that a LEFT SHIFT is Present. Laboratory - Hematology and Cell countsOrdered By: John Shaw on 11-22-2023 MCH (RBC) [Entitic mass] 29.7 pg 27.0-32.0 [facility] MCHC (RBC) [Mass/Vol] 32.5 g/dL 32-36 [facility] Nucleated RBC/100 WBC (Bld) [Ratio] 0 % 0-5 [facility] Platelets (Bld) [#/Vol] 260 10*3/uL 150-450 [facility] No Panel InformationOrdered By: John Shaw on 11-22-2023 29.7 pg 27.0-32.0 [facility] 32.5 g/dL 32-36 [facility] 260 K/mm3 150-450 [facility] 0 % 0-5 [facility] Platelet mean volume Fercho-Ec ker (Bld) [Entitic vol]Ordered By: John Shaw on 11-22-2023 Platelet mean volume (Bld) [Entitic vol] 10.2 fL 6.2-12.0 [facility] RBC Auto (Bld) [#/Vol]Ordere d By: John Shaw on 11-22-2023 RBC (Bld) [#/Vol] 3.70 10*6/uL 4.2-5.4 [facility] Bacteria identified Cx Nom ( U)Ordered By: John Shaw on 11-20-2023 Culture, urine Enterococcus faecalis [facility] Basophil percentageOrdered B y: John Shaw on 11-20-2023 Basophil percentage 2.3 mg/dL 2.5-4.9 [facility] Culture, urineOrdered By: Albert Shaw on 11-20-2023 Bacteria identified Cx Nom (U) Enterococcus faecalis [facility] Bacteria identified Cx Nom (U) Enterococcus faecalis [facility] Laboratory - Chemistry and C hemistry - challengeOrdered By: John Shaw on 11-20-2023 Magnesium [Mass/Vol] 2.1 mg/dL 1.6-2.6 [facility] No Panel InformationOrdered By: John Shaw on 11-20-2023 2.1 mg/dL 1.6-2.6 [facility] Absolute lymphocyte countOrd ered By: ED PROVIDER on 11-19-2023 Lymphocytes Auto (Unsp spec) [#/Vol] 4.21 10*3/uL 0.83-4.51 [facility] Automated lymphocyte count a s percentage of total leukocytesOrdered By: ED PROVIDER on 11-19-2023 Lymphocytes/100 WBC Auto (Unsp spec) 35.7 % 19-41 [facility] Basophil percentageOrdered B y: John Shaw on 11-19-2023 Basophil percentage 7.3 g/dL 6.4-8.2 [facility] Basophil percentage 0.50 mg/dL 0.20-1.00 [facility] Bilirubin [Mass/Vol] 0.50 mg/dL 0.20-1.00 [facility] Comment on above: For patients on eltr ombopag therapy, use of [place] TBIL is not recommended. Protein [Mass/Vol] 7.3 g/dL 6.4-8.2 [facility] Basophil percentageOrdered B y: Zack Choi on 11-19-2023 Basophil percentage 10-25 SEEN /hpf 0-5 [facility] Bilirubin [Mass/Vol] 0.60 mg/dL 0.20-1.00 [facility] Comment on above: For patients on eltr ombopag therapy, use of Dim[place] TBIL is not recommended. Protein [Mass/Vol] 8.5 g/dL 6.4-8.2 [facility] Basophil percentageOrdered B y: ED PROVIDER on 11-19-2023 Basophils/100 WBC (Bld) 0.7 % 0-1 [facility] Chloride [Moles/Vol] 92 mmol/L 98-107 [facility] Eosinophils/100 WBC (Bld) 0.4 % 0-5 [facility] Glucose [Mass/Vol] 484 mg/dL 74-106 [facility] Comment on above: Critical Result(s) C alled at: 09:01:13 11/19/2023 by: Shonda March to Jessica Segal. Results read back by same.Glucose result greater than or equal to 200 mg/dLsuggests DIABETES MELLITUS per A.D.A. criteria. Hemoglobin (Bld) [Mass/Vol] 13.7 g/dL 12.0-15.0 [facility] Monocytes/100 WBC (Bld) 3.3 % 0-10 [facility] Neutrophils (Bld) [#/Vol] 7.0 10*3/uL 2.0-7.7 [facility] Neutrophils/100 WBC (Bld) 59.6 % 47-70 [facility] Potassium [Moles/Vol] 3.4 mmol/L 3.5-5.1 [facility] Comment on above: Slight Hemolysis, Re sult may be falsely increased. Sodium [Moles/Vol] 127 mmol/L 136-145 [facility] WBC (Bld) [#/Vol] 11.8 10*3/uL 4.4-11.0 [facility] Bilirubin Test strip Ql (U)O rdered By: Zack Choi on 11-19-2023 Bilirubin Ql (U) Negative Negative [facility] Determination of erythrocyte mean corpuscular volume (MCV)Ordered By: ED PROVIDER on 11-19-2023 MCV (RBC) [Entitic vol] 87.8 fL 81-99 [facility] Direct bilirubinOrdered By: Zack Choi on 11-19-2023 Bilirubin.direct [Mass/Vol] 0.16 mg/dL 0.00-0.30 [facility] Erythrocyte distribution wid th ratioOrdered By: ED PROVIDER on 11-19-2023 Erythrocyte distribution width (RBC) [Ratio] 13.5 % 11.6-14.6 [facility] Erythrocyte distribution wid th standard deviationOrdered By: ED PROVIDER on 11-19-2023 Erythrocyte distribution width (RBC) [Entitic vol] 43.6 fL 35.1-43.9 [facility] Hematocrit Auto (Bld) [Volum e fraction]Ordered By: ED PROVIDER on 11-19-2023 Hematocrit (Bld) [Volume fraction] 40.2 % 37-47 [facility] Immature granulocytes/100 WB C Auto (Bld)Ordered By: ED PROVIDER on 11-19-2023 Immature granulocytes/100 WBC (Bld) 0.300 % 0.0-0.9 [facility] Comment on above: IG% - Immature Granu locytes (promyelocytes, myelocytes and metamyelocytes) > 1% indicates that a LEFT SHIFT is Present. Ketones Test strip Ql (U)Ord ered By: Zack Choi on 11-19-2023 Ketones Ql (U) Negative Negative [facility] Laboratory - Chemistry and C hemistry - challengeOrdered By: John Shaw on 11-19-2023 Albumin/Globulin [Mass ratio] 0.9 {ratio} 0.9-2.4 [facility] ALP [Catalytic activity/Vol] 60 U/L 45-117 [facility] ALT [Catalytic activity/Vol] 27 U/L 13-56 [facility] Globulin (S) [Mass/Vol] 3.9 g/dL 2.2-4.2 [facility] Laboratory - Chemistry and C hemistry - challengeOrdered By: Zack Choi on 11-19-2023 ALP [Catalytic activity/Vol] 73 U/L 45-117 [facility] ALT [Catalytic activity/Vol] 33 U/L - [facility] Globulin (S) [Mass/Vol] 4.6 g/dL 2.2-4.2 [facility] Lipase [Catalytic activity/Vol] 39 U/L 13- [facility] Comment on above: Please note:LIPASE r evised reference range effective 23. New Lipase methodology. Expected to produce lower values than the previous assay method. NEW Reference Range: 13 - 75 U/L Laboratory - Chemistry and C hemistry - challengeOrdered By: ED PROVIDER on 11-19-2023 CO2 [Moles/Vol] 24.0 mmol/L 21.0-32.0 [facility] Urea nitrogen/Creatinine [Mass ratio] 9.5 mg/mg 10-20 [facility] Laboratory - Hematology and Cell countsOrdered By: ED PROVIDER on 11-19-2023 MCH (RBC) [Entitic mass] 29.9 pg 27.0-32.0 [facility] MCHC (RBC) [Mass/Vol] 34.1 g/dL 32-36 [facility] Nucleated RBC/100 WBC (Bld) [Ratio] 0 % 0-5 [facility] Platelets (Bld) [#/Vol] 306 10*3/uL 150-450 [facility] Mucus LM Ql (Urine sed)Order ed By: Zack Choi on 11-19-2023 Mucus Ql (Urine sed) 0 SEEN /hpf [facility] Nitrite Test strip Ql (U)Ord ered By: Zack Choi on 11-19-2023 Nitrite Ql (U) Negative Negative [facility] No Panel InformationOrdered By: John Shaw on 11-19-2023 3.9 g/dL 2.2-4.2 [facility] 0.9 RATIO 0.9-2.4 [facility] 60 U/L 45-117 [facility] 27 U/L - [facility] No Panel InformationOrdered By: Zack Choi on 11-19-2023 Urine RBC 0-5 SEEN /hpf 0-5 [facility] 0-5 SEEN /hpf 0-5 [facility] 39 U/L 13-75 [facility] No Panel InformationOrdered By: ED PROVIDER on 11-19-2023 Estimated Creatinine Clearance Calc 34.64 ml/min [facility] Estimated GFR (MDRD) Amer 40 mL/min >60 [facility] Comment on above: GFR Calc Estimated GFR (MDRD) Non-Af Amer 33 mL/min >60 [facility] Comment on above: Non- GFR Calc Platelet mean volume Fercho-Ec ker (Bld) [Entitic vol]Ordered By: ED PROVIDER on 11-19-2023 Platelet mean volume (Bld) [Entitic vol] 10.9 fL 6.2-12.0 [facility] Protein Test strip Ql (U)Ord ered By: Zack Choi on 11-19-2023 Protein Ql (U) 30 mg/dl Negative [facility] RBC Auto (Bld) [#/Vol]Ordere d By: ED PROVIDER on 11-19-2023 RBC (Bld) [#/Vol] 4.58 10*6/uL 4.2-5.4 [facility] Serum or plasma acetone tai urement (mass/volume)Ordered By: ED PROVIDER on 11-19-2023 Acetone [Mass/Vol] Negative NEG [facility] Serum or plasma calcium tai urement (mass/volume)Ordered By: ED PROVIDER on 11-19-2023 Calcium [Mass/Vol] 9.6 mg/dL 8.5-10.1 [facility] Serum or plasma creatinine m easurement (mass/volume)Ordered By: ED PROVIDER on 11-19-2023 Creatinine [Mass/Vol] 1.68 mg/dL 0.55-1.02 [facility] Comment on above: The validity of the calculated GFR & GFRAA in patients over 70 years has not been determined. Clinical correlation is essential. Serum or plasma urea nitroge n measurement (mass/volume)Ordered By: ED PROVIDER on 11-19-2023 Urea nitrogen [Mass/Vol] 16 mg/dL 7-18 [facility] Squamous epithelial cells de tection in urine sediment by light microscopyOrdered By: Zack Choi on 11-19-2023 Epithelial cells.squamous LM Ql (Urine sed) 10-25 SEEN /hpf 5-10 [facility] Thin prep Papanicolaou smear with manual screeningOrdered By: John Shaw on 11-19-2023 Thin prep Papanicolaou smear with manual screening 3.4 g/dL 3.2-5.0 [facility] Thin prep Papanicolaou smear with manual screening 24 U/L 15- [facility] Thin prep Papanicolaou smear with manual screeningOrdered By: Zack Choi on 11-19-2023 Thin prep Papanicolaou smear with manual screening 356 mg/dL 74-106 [facility] Comment on above: MANAGEMENT OF PATIEN T CARE PER NURSING PROTOCOL Thin prep Papanicolaou smear with manual screening 3.9 g/dL 3.2-5.0 [facility] Thin prep Papanicolaou smear with manual screening 30 U/L 15- [facility] Comment on above: Slight Hemolysis, Re sult may be falsely increased. Thin prep Papanicolaou smear with manual screeningOrdered By: ED PROVIDER on 11-19-2023 Thin prep Papanicolaou smear with manual screening 11 5-15 [facility] Urine blood detectionOrdered By: Zack Choi on 11-19-2023 RBC Ql (U) 10 /ul Negative [facility] Urine clarityOrdered By: Garland Choi on 11-19-2023 Clarity (U) Sl. Cloudy Clear [facility] Urine color determinationOrd ered By: Zack Choi on 11-19-2023 Color (U) Yellow Yellow [facility] Urine glucose detectionOrder ed By: Zack Choi on 11-19-2023 Glucose Ql (U) 1000 mg/dl Normal [facility] Urine leukocyte esterase det ection by dipstickOrdered By: Zack Choi on 11-19-2023 Leukocyte esterase Test strip Ql (U) 100 /ul Negative [facility] Urine pHOrdered By: Zack james on 11-19-2023 pH (U) 6.0 [pH] 5.0 - 8.0 [facility] Urine sediment bacteria coun t by microscopy (number/high power field)Ordered By: Zack Choi on 11-19-2023 Bacteria LM.HPF (Urine sed) [#/Area] 0 /[HPF] None Seen [facility] Urine sediment yeast count b y microscopy (number/high powered field)Ordered By: Zack Choi on 11-19-2023 Yeast LM.HPF (Urine sed) [#/Area] 2 /[HPF] None Seen [facility] Urine specific gravity measu rementOrdered By: Zack Choi on 11-19-2023 Specific gravity (U) [Rel density] 1.015 1.002-1.03 0 [facility] Urine urobilinogen measureme ntOrdered By: Zack Choi on 11-19-2023 Urobilinogen Ql (U) Normal mg/dl Normal [facility] Absolute lymphocyte countOrd ered By: Bronson Retana on 06-06-2023 Lymphocytes Auto (Unsp spec) [#/Vol] 2.81 10*3/uL 0.83-4.51 [facility] Basophil percentageOrdered B y: Bronson Retana on 06-06-2023 Basophils/100 WBC (Bld) 0.8 % 0-1 [facility] Chloride [Moles/Vol] 94 mmol/L 98-107 [facility] Eosinophils/100 WBC (Bld) 0.9 % 0-5 [facility] Glucose [Mass/Vol] 554 mg/dL 74-106 [facility] Comment on above: Critical Result(s) C alled at: 18:31:37 06/06/2023 by: AUSTYN ESTRELLA. TO BARBARA SALAS RN ER Results read back by same.Glucose result greater than or equal to 200 mg/dLsuggests DIABETES MELLITUS per A.D.A. criteria. Neutrophils (Bld) [#/Vol] 3.2 10*3/uL 2.0-7.7 [facility] Neutrophils/100 WBC (Bld) 50.5 % 47-70 [facility] Potassium [Moles/Vol] 3.6 mmol/L 3.5-5.1 [facility] Sodium [Moles/Vol] 129 mmol/L 136-145 [facility] WBC (Bld) [#/Vol] 6.4 10*3/uL 4.4-11.0 [facility] Blood erythrocytes count (nu mber/volume)Ordered By: Bronson Retana on 06-06-2023 RBC (Bld) [#/Vol] 4.77 10*6/uL 4.2-5.4 [facility] Blood hemoglobin measurement (mass/volume)Ordered By: Bronson Retana on 06-06-2023 Hemoglobin (Bld) [Mass/Vol] 13.7 g/dL 12.0-15.0 [facility] Blood lymphocytes/100 leukoc ytesOrdered By: Bronson Retana on 06-06-2023 Lymphocytes/100 WBC (Bld) 44.0 % 19-41 [facility] Blood monocytes/100 leukocyt esOrdered By: Bronson Retana on 06-06-2023 Monocytes/100 WBC (Bld) 3.3 % 0-10 [facility] Blood platelet mean volumeOr dered By: Bronson Retana on 06-06-2023 Platelet mean volume (Bld) [Entitic vol] 10.7 fL 6.2-12.0 [facility] Determination of erythrocyte mean corpuscular volume (MCV)Ordered By: Bronson Retana on 06-06-2023 MCV (RBC) [Entitic vol] 89.3 fL 81-99 [facility] Glucose Glucometer (dC) [M ass/Vol]Ordered By: Bronson Retana on 06-06-2023 Glucose [Mass/Vol] 327 mg/dL 74-106 [facility] Comment on above: MANAGEMENT OF PATIEN T CARE PER NURSING PROTOCOL Hematocrit Auto (Bld) [Volum e fraction]Ordered By: Bronson Retana on 06-06-2023 Hematocrit (Bld) [Volume fraction] 42.6 % 37-47 [facility] - Chemistry and C hemistry - challengeOrdered By: Bronson Retana on 06-06-2023 CO2 [Moles/Vol] 23.0 mmol/L 21.0-32.0 [facility] Urea nitrogen/Creatinine [Mass ratio] 7.5 mg/mg 10-20 [facility] - Hematology and Cell countsOrdered By: Bronson Retana on 06-06-2023 Erythrocyte distribution width (RBC) [Entitic vol] 44.1 fL 35.1-43.9 [facility] Erythrocyte distribution width (RBC) [Ratio] 13.4 % 11.6-14.6 [facility] Immature granulocytes/100 WBC (Bld) 0.500 % 0.0-0.9 [facility] Comment on above: IG% - Immature Granu locytes (promyelocytes, myelocytes and metamyelocytes) > 1% indicates that a LEFT SHIFT is Present. MCH (RBC) [Entitic mass] 28.7 pg 27.0-32.0 [facility] Nucleated RBC/100 WBC (Bld) [Ratio] 0 % 0-5 [facility] MCHC Auto (RBC) [Mass/Vol]Or dered By: Bronson Retana on 06-06-2023 MCHC (RBC) [Mass/Vol] 32.2 g/dL 32-36 [facility] No Panel InformationOrdered By: Bronson Retana on 06-06-2023 Estimated GFR (MDRD) Amer 52 mL/min >60 [facility] Comment on above: GFR Calc Estimated GFR (MDRD) Non-Af Amer 43 mL/min >60 [facility] Comment on above: Non- GFR Calc Platelets bldOrdered By: Yoni Retana on 06-06-2023 Platelets (Bld) [#/Vol] 233 10*3/uL 150-450 [facility] Serum or plasma acetone tai urement (mass/volume)Ordered By: Bronson Retana on 06-06-2023 Acetone [Mass/Vol] Negative NEG [facility] Serum or plasma calcium tai urement (mass/volume)Ordered By: Bronson Retana on 06-06-2023 Calcium [Mass/Vol] 8.9 mg/dL 8.5-10.1 [facility] Serum or plasma creatinine m easurement (mass/volume)Ordered By: Bronson Retana on 06-06-2023 Creatinine [Mass/Vol] 1.34 mg/dL 0.55-1.02 [facility] Comment on above: The validity of the calculated GFR & GFRAA in patients over 70 years has not been determined. Clinical correlation is essential. Serum or plasma urea nitroge n measurement (mass/volume)Ordered By: Bronson Retana on 06-06-2023 Urea nitrogen [Mass/Vol] 10 mg/dL 7-18 [facility] Thin prep Papanicolaou smear with manual screeningOrdered By: Bronson Retana on 06-06-2023 Thin prep Papanicolaou smear with manual screening 12 -15 [facility] Absolute lymphocyte countOrd ered By: ED PROVIDER on 06-04-2023 Lymphocytes Auto (Unsp spec) [#/Vol] 2.58 10*3/uL 0.83-4.51 [facility] Basophil percentageOrdered B y: Bronson Retana on 06-04-2023 Basophil percentage 0-5 SEEN /hpf 0-5 [facility] Basophil percentageOrdered B y: ED PROVIDER on 06-04-2023 Basophils/100 WBC (Bld) 0.8 % 0-1 [facility] Bilirubin [Mass/Vol] 0.80 mg/dL 0.20-1.00 [facility] Comment on above: For patients on eltr ombopag therapy, use of Dimension [place] TBIL is not recommended. Chloride [Moles/Vol] 90 mmol/L 98-107 [facility] Eosinophils/100 WBC (Bld) 0.5 % 0-5 [facility] Glucose [Mass/Vol] 491 mg/dL 74-106 [facility] Comment on above: Critical Result(s) C alled at: 15:52:49 06/04/2023 by: Tomasa Olivares to Nick. Results read back by same.Glucose result greater than or equal to 200 mg/dLsuggests DIABETES MELLITUS per A.D.A. criteria. Neutrophils (Bld) [#/Vol] 3.6 10*3/uL 2.0-7.7 [facility] Neutrophils/100 WBC (Bld) 55.4 % 47-70 [facility] Potassium [Moles/Vol] 3.8 mmol/L 3.5-5.1 [facility] Protein [Mass/Vol] 7.6 g/dL 6.4-8.2 [facility] Sodium [Moles/Vol] 127 mmol/L 136-145 [facility] WBC (Bld) [#/Vol] 6.5 10*3/uL 4.4-11.0 [facility] Bilirubin Test strip Ql (U)O rdered By: Bronson Retana on 06-04-2023 Bilirubin Ql (U) Negative Negative [facility] Blood erythrocytes count (nu mber/volume)Ordered By: ED PROVIDER on 06-04-2023 RBC (Bld) [#/Vol] 4.83 10*6/uL 4.2-5.4 [facility] Blood hemoglobin measurement (mass/volume)Ordered By: ED PROVIDER on 06-04-2023 Hemoglobin (Bld) [Mass/Vol] 14.0 g/dL 12.0-15.0 [facility] Blood lymphocytes/100 leukoc ytesOrdered By: ED PROVIDER on 06-04-2023 Lymphocytes/100 WBC (Bld) 39.6 % 19-41 [facility] Blood monocytes/100 leukocyt esOrdered By: ED PROVIDER on 06-04-2023 Monocytes/100 WBC (Bld) 3.2 % 0-10 [facility] Blood platelet mean volumeOr dered By: ED PROVIDER on 06-04-2023 Platelet mean volume (Bld) [Entitic vol] 10.7 fL 6.2-12.0 [facility] Determination of erythrocyte mean corpuscular volume (MCV)Ordered By: ED PROVIDER on 06-04-2023 MCV (RBC) [Entitic vol] 87.0 fL 81-99 [facility] Glucose Glucometer (BldC) [M ass/Vol]Ordered By: Bronson Retana on 06-04-2023 Glucose [Mass/Vol] 274 mg/dL 74-106 [facility] Comment on above: MANAGEMENT OF PATIEN T CARE PER NURSING PROTOCOL Glucose [Mass/Vol] 379 mg/dL 74-106 [facility] Comment on above: MANAGEMENT OF PATIEN T CARE PER NURSING PROTOCOL Hematocrit Auto (Bld) [Volum e fraction]Ordered By: ED PROVIDER on 06-04-2023 Hematocrit (Bld) [Volume fraction] 42.0 % 37-47 [facility] Ketones Test strip Ql (U)Ord ered By: Bronson Retana on 06-04-2023 Ketones Ql (U) 15 mg/dl Negative [facility] - Chemistry and C hemistry - challengeOrdered By: ED PROVIDER on 06-04-2023 ALP [Catalytic activity/Vol] 78 U/L 45-117 [facility] ALT [Catalytic activity/Vol] 29 U/L 13-56 [facility] CO2 [Moles/Vol] 27.0 mmol/L 21.0-32.0 [facility] Globulin (S) [Mass/Vol] 4.1 g/dL 2.2-4.2 [facility] Urea nitrogen/Creatinine [Mass ratio] 10.6 mg/mg 10-20 [facility] - Chemistry and C hemistry - challengeOrdered By: Bronson Retana on 06-04-2023 Lipase [Catalytic activity/Vol] 39 U/L 13-75 [facility] Comment on above: Please note:LIPASE r evised reference range effective 23. New Lipase methodology. Expected to produce lower values than the previous assay method. NEW Reference Range: 13 - 75 [facility] Laboratory - Hematology and Cell countsOrdered By: ED PROVIDER on 06-04-2023 Erythrocyte distribution width (RBC) [Entitic vol] 42.1 fL 35.1-43.9 [facility] Erythrocyte distribution width (RBC) [Ratio] 13.3 % 11.6-14.6 [facility] Immature granulocytes/100 WBC (Bld) 0.500 % 0.0-0.9 [facility] Comment on above: IG% - Immature Granu locytes (promyelocytes, myelocytes and metamyelocytes) > 1% indicates that a LEFT SHIFT is Present. MCH (RBC) [Entitic mass] 29.0 pg 27.0-32.0 [facility] Nucleated RBC/100 WBC (Bld) [Ratio] 0 % 0-5 [facility] MCHC Auto (RBC) [Mass/Vol]Or dered By: ED PROVIDER on 06-04-2023 MCHC (RBC) [Mass/Vol] 33.3 g/dL 32-36 [facility] Mucus LM Ql (Urine sed)Order ed By: Bronson Retana on 06-04-2023 Mucus Ql (Urine sed) 0 SEEN /hpf [facility] Nitrite Test strip Ql (U)Ord ered By: Bronson Retana on 06-04-2023 Nitrite Ql (U) Negative Negative [facility] No Panel InformationOrdered By: ED PROVIDER on 06-04-2023 Estimated GFR (MDRD) Amer 53 mL/min >60 [facility] Comment on above: GFR Calc Estimated GFR (MDRD) Non-Af Amer 44 mL/min >60 [facility] Comment on above: Non- GFR Calc Platelets bldOrdered By: ED PROVIDER on 06-04-2023 Platelets (Bld) [#/Vol] 240 10*3/uL 150-450 [facility] Protein Test strip Ql (U)Ord ered By: Bronson Retana on 06-04-2023 Protein Ql (U) 30 mg/dl Negative [facility] Serum or plasma albumin tai urement (mass/volume)Ordered By: ED PROVIDER on 06-04-2023 Albumin [Mass/Vol] 3.5 g/dL 3.2-5.0 [facility] Serum or plasma albumin/glob ulin mass ratioOrdered By: ED PROVIDER on 06-04-2023 Albumin/Globulin [Mass ratio] 0.9 {ratio} 0.9-2.4 [facility] Serum or plasma calcium tai urement (mass/volume)Ordered By: ED PROVIDER on 06-04-2023 Calcium [Mass/Vol] 9.1 mg/dL 8.5-10.1 [facility] Serum or plasma creatinine m easurement (mass/volume)Ordered By: ED PROVIDER on 06-04-2023 Creatinine [Mass/Vol] 1.32 mg/dL 0.55-1.02 [facility] Comment on above: The validity of the calculated GFR & GFRAA in patients over 70 years has not been determined. Clinical correlation is essential. Serum or plasma urea nitroge n measurement (mass/volume)Ordered By: ED PROVIDER on 06-04-2023 Urea nitrogen [Mass/Vol] 14 mg/dL 7-18 [facility] Squamous epithelial cells de tection in urine sediment by light microscopyOrdered By: Bronson Retana on 06-04-2023 Epithelial cells.squamous LM Ql (Urine sed) 0-5 SEEN /hpf 5-10 [facility] Thin prep Papanicolaou smear with manual screeningOrdered By: ED PROVIDER on 06-04-2023 Thin prep Papanicolaou smear with manual screening 21 U/L 15-37 [facility] Thin prep Papanicolaou smear with manual screening 10 5-15 [facility] Urine blood detectionOrdered By: Bronson Retana on 06-04-2023 RBC Ql (U) 10 /ul Negative [facility] RBC Ql (U) 0 SEEN /hpf 0-5 [facility] Urine clarityOrdered By: Yoni Retana on 06-04-2023 Clarity (U) Clear Clear [facility] Urine color determinationOrd ered By: Bronson Retana on 06-04-2023 Color (U) Yellow Yellow [facility] Urine glucose detectionOrder ed By: Bronson Retana on 06-04-2023 Glucose Ql (U) 1000 mg/dl Normal [facility] Urine leukocyte esterase det ection by dipstickOrdered By: Bronson Retana on 06-04-2023 Leukocyte esterase Test strip Ql (U) 25 /ul Negative [facility] Urine pHOrdered By: Bronson bonilla on 06-04-2023 pH (U) 6.5 [pH] 5.0 - 8.0 [facility] Urine sediment bacteria coun t by microscopy (number/high power field)Ordered By: Bronson Retana on 06-04-2023 Bacteria LM.HPF (Urine sed) [#/Area] 0 /[HPF] None Seen [facility] Urine sediment yeast count b y microscopy (number/high powered field)Ordered By: Bronson Retana on 06-04-2023 Yeast LM.HPF (Urine sed) [#/Area] RARE /hpf None Seen [facility] Urine specific gravity measu rementOrdered By: Bronson Retana on 06-04-2023 Specific gravity (U) [Rel density] 1.010 1.002-1.03 0 [facility] Urobilinogen Auto test strip Ql (U)Ordered By: Bronson Retana on 06-04-2023 Urobilinogen Ql (U) Normal mg/dl Normal [facility] Absolute lymphocyte countOrd ered By: Dr. Peterson on 03-28-2023 Lymphocytes Auto (Unsp spec) [#/Vol] 2.76 10*3/uL 0.83-4.51 [facility] Basophil percentageOrdered B y: Dr. Peterson on 03-28-2023 Basophils/100 WBC (Bld) 0.5 % 0-1 [facility] Bilirubin [Mass/Vol] 0.60 mg/dL 0.20-1.00 [facility] Comment on above: For patients on eltr ombopag therapy, use of Dimension [place] TBIL is not recommended. Chloride [Moles/Vol] 100 mmol/L 98-107 [facility] Eosinophils/100 WBC (Bld) 0.9 % 0-5 [facility] Glucose [Mass/Vol] 374 mg/dL 74-106 [facility] Comment on above: Glucose result great er than or equal to 200 mg/dLsuggests DIABETES MELLITUS per A.D.A. criteria. Neutrophils (Bld) [#/Vol] 8.7 10*3/uL 2.0-7.7 [facility] Neutrophils/100 WBC (Bld) 71.5 % 47-70 [facility] Potassium [Moles/Vol] 4.3 mmol/L 3.5-5.1 [facility] Protein [Mass/Vol] 7.6 g/dL 6.4-8.2 [facility] Sodium [Moles/Vol] 134 mmol/L 136-145 [facility] WBC (Bld) [#/Vol] 12.1 10*3/uL 4.4-11.0 [facility] Blood erythrocytes count (nu mber/volume)Ordered By: Dr. Peterson on 03-28-2023 RBC (Bld) [#/Vol] 4.33 10*6/uL 4.2-5.4 [facility] Blood hemoglobin measurement (mass/volume)Ordered By: Dr. Peterson on 03-28-2023 Hemoglobin (Bld) [Mass/Vol] 12.4 g/dL 12.0-15.0 [facility] Blood lymphocytes/100 leukoc ytesOrdered By: Dr. Peterson on 03-28-2023 Lymphocytes/100 WBC (Bld) 22.8 % 19-41 [facility] Blood monocytes/100 leukocyt esOrdered By: Dr. Peterson on 03-28-2023 Monocytes/100 WBC (Bld) 3.9 % 0-10 [facility] Blood platelet mean volumeOr dered By: Dr. Peterson on 03-28-2023 Platelet mean volume (Bld) [Entitic vol] 9.3 fL 6.2-12.0 [facility] Determination of erythrocyte mean corpuscular volume (MCV)Ordered By: Dr. Peterson on 03-28-2023 MCV (RBC) [Entitic vol] 90.5 fL 81-99 [facility] Hematocrit Auto (Bld) [Volum e fraction]Ordered By: Dr. Peterson on 03-28-2023 Hematocrit (Bld) [Volume fraction] 39.2 % 37-47 [facility] - Chemistry and C hemistry - challengeOrdered By: Dr. Peterson on 03-28-2023 ALP [Catalytic activity/Vol] 75 U/L 45-117 [facility] ALT [Catalytic activity/Vol] 32 U/L 13-56 [facility] CO2 [Moles/Vol] 22.0 mmol/L 21.0-32.0 [facility] Globulin (S) [Mass/Vol] 4.1 g/dL 2.2-4.2 [facility] Urea nitrogen/Creatinine [Mass ratio] 17.9 mg/mg 10-20 [facility] - Hematology and Cell countsOrdered By: Dr. Peterson on 03-28-2023 Erythrocyte distribution width (RBC) [Entitic vol] 42.0 fL 35.1-43.9 [facility] Erythrocyte distribution width (RBC) [Ratio] 12.7 % 11.6-14.6 [facility] Immature granulocytes/100 WBC (Bld) 0.400 % 0.0-0.9 [facility] Comment on above: IG% - Immature Granu locytes (promyelocytes, myelocytes and metamyelocytes) > 1% indicates that a LEFT SHIFT is Present. MCH (RBC) [Entitic mass] 28.6 pg 27.0-32.0 [facility] Nucleated RBC/100 WBC (Bld) [Ratio] 0 % 0-5 [facility] MCHC Auto (RBC) [Mass/Vol]Or dered By: Dr. Peterson on 03-28-2023 MCHC (RBC) [Mass/Vol] 31.6 g/dL 32-36 [facility] No Panel InformationOrdered By: Dr. Peterson on 03-28-2023 Estimated Creatinine Clearance Calc 32.47 ml/min [facility] Estimated GFR (MDRD) Amer 52 mL/min >60 [facility] Comment on above: GFR Calc Estimated GFR (MDRD) Non-Af Amer 43 mL/min >60 [facility] Comment on above: Non- GFR Calc Platelets bldOrdered By: Dr. Peterson on 03-28-2023 Platelets (Bld) [#/Vol] 347 10*3/uL 150-450 [facility] Serum or plasma albumin tai urement (mass/volume)Ordered By: Dr. Peterson on 03-28-2023 Albumin [Mass/Vol] 3.5 g/dL 3.2-5.0 [facility] Serum or plasma albumin/glob ulin mass ratioOrdered By: Dr. Peterson on 03-28-2023 Albumin/Globulin [Mass ratio] 0.9 {ratio} 0.9-2.4 [facility] Serum or plasma calcium tai urement (mass/volume)Ordered By: Dr. Peterson on 03-28-2023 Calcium [Mass/Vol] 9.1 mg/dL 8.5-10.1 [facility] Serum or plasma creatinine m easurement (mass/volume)Ordered By: Dr. Peterson on 03-28-2023 Creatinine [Mass/Vol] 1.34 mg/dL 0.55-1.02 [facility] Comment on above: The validity of the calculated GFR & GFRAA in patients over 70 years has not been determined. Clinical correlation is essential. Serum or plasma urea nitroge n measurement (mass/volume)Ordered By: Dr. Peterson on 03-28-2023 Urea nitrogen [Mass/Vol] 24 mg/dL 7-18 [facility] Thin prep Papanicolaou smear with manual screeningOrdered By: Dr. Peterson on 03-28-2023 Thin prep Papanicolaou smear with manual screening 29 U/L 15-37 [facility] Thin prep Papanicolaou smear with manual screening 12 5-15 [facility] Basophil percentageOrdered B y: Lizet Linares on 03-16-2023 Chloride [Moles/Vol] 105 mmol/L 98-107 [facility] Glucose [Mass/Vol] 171 mg/dL 74-106 [facility] Comment on above: Fasting Glucose resu lt greater than or equal to 126 mg/dL suggests DIABETES MELLITUS per A.D.A. criteria. Potassium [Moles/Vol] 3.8 mmol/L 3.5-5.1 [facility] Sodium [Moles/Vol] 139 mmol/L 136-145 [facility] WBC (Bld) [#/Vol] 7.0 10*3/uL 4.4-11.0 [facility] Blood erythrocytes count (nu mber/volume)Ordered By: Lizet Linares on 03-16-2023 RBC (Bld) [#/Vol] 3.74 10*6/uL 4.2-5.4 [facility] Blood hemoglobin measurement (mass/volume)Ordered By: Lizet Linares on 03-16-2023 Hemoglobin (Bld) [Mass/Vol] 10.8 g/dL 12.0-15.0 [facility] Blood platelet mean volumeOr dered By: Lizet Linares on 03-16-2023 Platelet mean volume (Bld) [Entitic vol] 9.6 fL 6.2-12.0 [facility] Determination of erythrocyte mean corpuscular volume (MCV)Ordered By: Lizet Linares on 03-16-2023 MCV (RBC) [Entitic vol] 93.0 fL 81-99 [facility] Hematocrit Auto (Bld) [Volum e fraction]Ordered By: Lizet Linares on 03-16-2023 Hematocrit (Bld) [Volume fraction] 34.8 % 37-47 [facility] - Chemistry and C hemistry - challengeOrdered By: Lizet Linares on 03-16-2023 CO2 [Moles/Vol] 27.0 mmol/L 21.0-32.0 [facility] Urea nitrogen/Creatinine [Mass ratio] 18.0 mg/mg 10-20 [facility] - Hematology and Cell countsOrdered By: Lizet Linares on 03-16-2023 Erythrocyte distribution width (RBC) [Entitic vol] 44.1 fL 35.1-43.9 [facility] Erythrocyte distribution width (RBC) [Ratio] 13.0 % 11.6-14.6 [facility] MCH (RBC) [Entitic mass] 28.9 pg 27.0-32.0 [facility] MCHC Auto (RBC) [Mass/Vol]Or dered By: Lizet Linares on 03-16-2023 MCHC (RBC) [Mass/Vol] 31.0 g/dL 32-36 [facility] No Panel InformationOrdered By: Lizet Linares on 03-16-2023 Estimated GFR (MDRD) Amer 73 mL/min >60 [facility] Comment on above: GFR Calc Estimated GFR (MDRD) Non-Af Amer 60 mL/min >60 [facility] Comment on above: Non- GFR Calc Platelets bldOrdered By: Bart Linares on 03-16-2023 Platelets (Bld) [#/Vol] 277 10*3/uL 150-450 [facility] Serum or plasma calcium tai urement (mass/volume)Ordered By: Lizet Linares on 03-16-2023 Calcium [Mass/Vol] 8.8 mg/dL 8.5-10.1 [facility] Serum or plasma creatinine m easurement (mass/volume)Ordered By: Lizet Linares on 03-16-2023 Creatinine [Mass/Vol] 1.00 mg/dL 0.55-1.02 [facility] Comment on above: The validity of the calculated GFR & GFRAA in patients over 70 years has not been determined. Clinical correlation is essential. Serum or plasma urea nitroge n measurement (mass/volume)Ordered By: Lizet Linares on 03-16-2023 Urea nitrogen [Mass/Vol] 18 mg/dL 7-18 [facility] Thin prep Papanicolaou smear with manual screeningOrdered By: Lizet Linares on 03-16-2023 Thin prep Papanicolaou smear with manual screening 7 5-15 [facility] Basophil percentageOrdered B y: Ganesh Garcia on 03-02-2023 Chloride [Moles/Vol] 106 mmol/L 98-107 [facility] Glucose [Mass/Vol] 241 mg/dL 74-106 [facility] Comment on above: Glucose result great er than or equal to 200 mg/dLsuggests DIABETES MELLITUS per A.D.A. criteria. Potassium [Moles/Vol] 4.2 mmol/L 3.5-5.1 [facility] Sodium [Moles/Vol] 138 mmol/L 136-145 [facility] WBC (Bld) [#/Vol] 6.4 10*3/uL 4.4-11.0 [facility] Blood erythrocytes count (nu mber/volume)Ordered By: Ganesh Garcia on 03-02-2023 RBC (Bld) [#/Vol] 3.81 10*6/uL 4.2-5.4 [facility] Blood hemoglobin measurement (mass/volume)Ordered By: Ganesh Garcia on 03-02-2023 Hemoglobin (Bld) [Mass/Vol] 11.2 g/dL 12.0-15.0 [facility] Blood platelet mean volumeOr dered By: Ganesh Garcia on 03-02-2023 Platelet mean volume (Bld) [Entitic vol] 9.5 fL 6.2-12.0 [facility] Determination of erythrocyte mean corpuscular volume (MCV)Ordered By: Ganesh Garcia on 03-02-2023 MCV (RBC) [Entitic vol] 92.7 fL 81-99 [facility] Hematocrit Auto (Bld) [Volum e fraction]Ordered By: Ganesh Garcia on 03-02-2023 Hematocrit (Bld) [Volume fraction] 35.3 % 37-47 [facility] - Chemistry and C hemistry - challengeOrdered By: Ganesh Garcia on 03-02-2023 CO2 [Moles/Vol] 26.0 mmol/L 21.0-32.0 [facility] Urea nitrogen/Creatinine [Mass ratio] 21.9 mg/mg 10-20 [facility] - Hematology and Cell countsOrdered By: Ganesh Garcia on 03-02-2023 Erythrocyte distribution width (RBC) [Entitic vol] 44.9 fL 35.1-43.9 [facility] Erythrocyte distribution width (RBC) [Ratio] 13.2 % 11.6-14.6 [facility] MCH (RBC) [Entitic mass] 29.4 pg 27.0-32.0 [facility] MCHC Auto (RBC) [Mass/Vol]Or dered By: Ganesh Garcia on 03-02-2023 MCHC (RBC) [Mass/Vol] 31.7 g/dL 32-36 [facility] No Panel InformationOrdered By: Ganesh Garcia on 03-02-2023 Estimated GFR (MDRD) Amer 81 mL/min >60 [facility] Comment on above: GFR Calc Estimated GFR (MDRD) Non-Af Amer 67 mL/min >60 [facility] Comment on above: Non- GFR Calc Platelets bldOrdered By: Robert Garcia on 03-02-2023 Platelets (Bld) [#/Vol] 292 10*3/uL 150-450 [facility] Serum or plasma calcium tai urement (mass/volume)Ordered By: Ganesh Garcia on 03-02-2023 Calcium [Mass/Vol] 9.0 mg/dL 8.5-10.1 [facility] Serum or plasma creatinine m easurement (mass/volume)Ordered By: Ganesh Garcia on 03-02-2023 Creatinine [Mass/Vol] 0.92 mg/dL 0.55-1.02 [facility] Comment on above: The validity of the calculated GFR & GFRAA in patients over 70 years has not been determined. Clinical correlation is essential. Serum or plasma urea nitroge n measurement (mass/volume)Ordered By: Ganesh Garcia on 03-02-2023 Urea nitrogen [Mass/Vol] 20 mg/dL 7-18 [facility] Thin prep Papanicolaou smear with manual screeningOrdered By: Ganesh Garcia on 03-02-2023 Thin prep Papanicolaou smear with manual screening 6 5-15 [facility] - Drug toxicology Ordered By: Dr. Renteria on 03-01-2023 Amphetamines Ql (U) Negative <1000 ng/mL [facility] Benzodiazepines Ql (U) Negative < 200 ng/mL [facility] Cannabinoids Screen Ql (U) Negative < 50 ng/mL [facility] Cocaine Ql (U) Negative < 300 ng/mL [facility] Opiates Ql (U) Negative < 300 ng/mL [facility] No Panel InformationOrdered By: Dr. Renteria on 03-01-2023 MDMA (Ecstasy) Screen Negative < 500 ng/mL [facility] Miscellaneous Test See comment [facility] Comment on above: [id number] 6+OXYCODONE-B UND (ng/mL) DRUG RESULT SCREEN CUTOFF____ Amphetamines,Urine Negative ng/mL 1000 Amphetamine test includes Amphetamine and Methamphetamine.Barbiturates Negative ng/mL 200Benzodiazepines Negative ng/mL 200Cannabinoid Negative ng/mL 20Cocaine (Metab) Negative ng/mL 300Opiates Negative ng/mL 300 Opiates test includes Codeine, Morphine, Hydromorphone, Hydrocodone. Oxycodone/Oxymorphone,Urine Negative ng/mL 300 Test includes Oxydodone and Oxymorphone. TESTING PERFORMED AT [facility]. ORIGINAL REPORT ON FILE IN LAB CONTAINS ADDITIONAL TEST SITE INFORMATION. Urine Barbiturates Screen Negative < 200 ng/mL [facility] Urine Drug Screen Comment [facility] Comment on above: CONFIRMATORY TESTING FOR ALL POSITIVE URINE DRUG SCREENRESULTS WILL ONLY BE SENT OUT UPON PHYSICIAN ORDER. VISTA Urine Drug Screen methods provide only preliminaryanalytical test results. A more specific alternate chemicalmethod must be used in order to obtain a confirmedanalytical result. Gas chromatography/mass spectrometery(GC/MS) is the preferred confirmatory method. Clinicalconsideration and professional judgement should be appliedto any drug of abuse test result, particularly whenpreliminary positive results are used. URINE TCA TESTING MUST BE ORDERED SEPARATELY. USE TESTMNEMONIC: [facility] Urine Methadone Screen Negative < 300 ng/mL [facility] Urine phencyclidine (PCP) de tectionOrdered By: Dr. Renteria on 03-01-2023 Phencyclidine Ql (U) Negative < 25 ng/mL [facility] Basophil percentageOrdered B y: Lizet Linares on 02-16-2023 Chloride [Moles/Vol] 102 mmol/L 98-107 [facility] Glucose [Mass/Vol] 380 mg/dL 74-106 [facility] Comment on above: Glucose result great er than or equal to 200 mg/dLsuggests DIABETES MELLITUS per A.D.A. criteria. Potassium [Moles/Vol] 4.1 mmol/L 3.5-5.1 [facility] Sodium [Moles/Vol] 133 mmol/L 136-145 [facility] WBC (Bld) [#/Vol] 6.8 10*3/uL 4.4-11.0 [facility] Blood erythrocytes count (nu mber/volume)Ordered By: Lizet Linares on 02-16-2023 RBC (Bld) [#/Vol] 3.97 10*6/uL 4.2-5.4 [facility] Blood hemoglobin measurement (mass/volume)Ordered By: Lizet Linares on 02-16-2023 Hemoglobin (Bld) [Mass/Vol] 11.8 g/dL 12.0-15.0 [facility] Blood platelet mean volumeOr dered By: Lizet Linares on 02-16-2023 Platelet mean volume (Bld) [Entitic vol] 9.6 fL 6.2-12.0 [facility] Determination of erythrocyte mean corpuscular volume (MCV)Ordered By: Lizet Linares on 02-16-2023 MCV (RBC) [Entitic vol] 92.2 fL 81-99 [facility] Hematocrit Auto (Bld) [Volum e fraction]Ordered By: Lizet Linares on 02-16-2023 Hematocrit (Bld) [Volume fraction] 36.6 % 37-47 [facility] - Chemistry and C hemistry - challengeOrdered By: Lizet Linares on 02-16-2023 CO2 [Moles/Vol] 29.0 mmol/L 21.0-32.0 [facility] Urea nitrogen/Creatinine [Mass ratio] 19.4 mg/mg 10-20 [facility] - Hematology and Cell countsOrdered By: Lizet Linares on 02-16-2023 Erythrocyte distribution width (RBC) [Entitic vol] 45.4 fL 35.1-43.9 [facility] Erythrocyte distribution width (RBC) [Ratio] 13.4 % 11.6-14.6 [facility] MCH (RBC) [Entitic mass] 29.7 pg 27.0-32.0 [facility] MCHC Auto (RBC) [Mass/Vol]Or dered By: Lizet Linares on 02-16-2023 MCHC (RBC) [Mass/Vol] 32.2 g/dL 32-36 [facility] No Panel InformationOrdered By: Lizet Linares on 02-16-2023 Estimated GFR (MDRD) Amer 70 mL/min >60 [facility] Comment on above: GFR Calc Estimated GFR (MDRD) Non-Af Amer 58 mL/min >60 [facility] Comment on above: Non- GFR Calc Platelets bldOrdered By: Bart Linares on 02-16-2023 Platelets (Bld) [#/Vol] 251 10*3/uL 150-450 [facility] Serum or plasma calcium tai urement (mass/volume)Ordered By: Lizet Linares on 02-16-2023 Calcium [Mass/Vol] 8.7 mg/dL 8.5-10.1 [facility] Serum or plasma creatinine m easurement (mass/volume)Ordered By: Lizet Linares on 02-16-2023 Creatinine [Mass/Vol] 1.03 mg/dL 0.55-1.02 [facility] Comment on above: The validity of the calculated GFR & GFRAA in patients over 70 years has not been determined. Clinical correlation is essential. Serum or plasma urea nitroge n measurement (mass/volume)Ordered By: Lizet Linares on 02-16-2023 Urea nitrogen [Mass/Vol] 20 mg/dL 7-18 [facility] Thin prep Papanicolaou smear with manual screeningOrdered By: Lizet Linares on 02-16-2023 Thin prep Papanicolaou smear with manual screening 2 5-15 [facility] Absolute lymphocyte countOrd ered By: Lizet Linares on 02-02-2023 Lymphocytes Auto (Unsp spec) [#/Vol] 3.01 10*3/uL 0.83-4.51 [facility] Basophil percentageOrdered B y: Lizet Linares on 02-02-2023 Basophil percentage 247 mg/dL 74-106 [facility] Basophil percentage 136 mmol/L 136-145 [facility] Basophil percentage 4.2 mmol/L 3.5-5.1 [facility] Basophil percentage 103 mmol/L 98-107 [facility] Basophils (Bld) [#/Vol] 9.3 10*3/uL 4.4-11.0 [facility] Basophils (Bld) [#/Vol] 5.7 10*3/uL 2.0-7.7 [facility] Basophils/100 WBC (Bld) 60.8 % 47-70 [facility] Basophils/100 WBC (Bld) 0.4 % 0-5 [facility] Basophils/100 WBC (Bld) 0.6 % 0-1 [facility] Chloride [Moles/Vol] 103 mmol/L 98-107 [facility] Eosinophils/100 WBC (Bld) 0.4 % 0-5 [facility] Glucose [Mass/Vol] 247 mg/dL 74-106 [facility] Comment on above: Glucose result great er than or equal to 200 mg/dLsuggests DIABETES MELLITUS per A.D.A. criteria. Neutrophils (Bld) [#/Vol] 5.7 10*3/uL 2.0-7.7 [facility] Neutrophils/100 WBC (Bld) 60.8 % 47-70 [facility] Potassium [Moles/Vol] 4.2 mmol/L 3.5-5.1 [facility] Sodium [Moles/Vol] 136 mmol/L 136-145 [facility] WBC (Bld) [#/Vol] 9.3 10*3/uL 4.4-11.0 [facility] Blood erythrocytes count (nu mber/volume)Ordered By: Lizet Linares on 02-02-2023 RBC (Bld) [#/Vol] 3.83 10*6/uL 4.2-5.4 [facility] Blood hemoglobin measurement (mass/volume)Ordered By: Lizet Linares on 02-02-2023 Hemoglobin (Bld) [Mass/Vol] 11.3 g/dL 12.0-15.0 [facility] Blood lymphocytes/100 leukoc ytesOrdered By: Lizet Linares on 02-02-2023 Lymphocytes/100 WBC (Bld) 32.3 % 19-41 [facility] Blood monocytes/100 leukocyt esOrdered By: Lizet Linares on 02-02-2023 Monocytes/100 WBC (Bld) 5.6 % 0-10 [facility] Blood platelet mean volumeOr dered By: Lizet Linares on 02-02-2023 Platelet mean volume (Bld) [Entitic vol] 9.6 fL 6.2-12.0 [facility] Determination of erythrocyte mean corpuscular volume (MCV)Ordered By: marcelle Linares on 02-02-2023 MCV (RBC) [Entitic vol] 90.9 fL 81-99 [facility] Hematocrit Auto (Bld) [Volum e fraction]Ordered By: Lizet Linares on 02-02-2023 Hematocrit (Bld) [Volume fraction] 34.8 % 37-47 [facility] - Chemistry and C hemistry - challengeOrdered By: marcelle Linares on 02-02-2023 CO2 [Moles/Vol] 26.0 mmol/L 21.0-32.0 [facility] Urea nitrogen/Creatinine [Mass ratio] 28.8 mg/mg 10-20 [facility] - Hematology and Cell countsOrdered By: Lizet Linares on 02-02-2023 Erythrocyte distribution width (RBC) [Entitic vol] 44.8 fL 35.1-43.9 [facility] Erythrocyte distribution width (RBC) [Ratio] 13.3 % 11.6-14.6 [facility] Immature granulocytes/100 WBC (Bld) 0.300 % 0.0-0.9 [facility] Comment on above: IG% - Immature Granu locytes (promyelocytes, myelocytes and metamyelocytes) > 1% indicates that a LEFT SHIFT is Present. MCH (RBC) [Entitic mass] 29.5 pg 27.0-32.0 [facility] Nucleated RBC/100 WBC (Bld) [Ratio] 0 % 0-5 [facility] MCHC Auto (RBC) [Mass/Vol]Or dered By: Lizet Linares on 02-02-2023 MCHC (RBC) [Mass/Vol] 32.5 g/dL 32-36 [facility] No Panel InformationOrdered By: Lizet Linares on 02-02-2023 Estimated GFR (MDRD) Amer 65 mL/min >60 [facility] Comment on above: GFR Calc Estimated GFR (MDRD) Non-Af Amer 53 mL/min >60 [facility] Comment on above: Non- GFR Calc 29.5 pg 27.0-32.0 [facility] 13.3 % 11.6-14.6 [facility] 44.8 fl 35.1-43.9 [facility] 0.300 % 0.0-0.9 [facility] 0 % 0-5 [facility] 53 mL/min >60 [facility] 65 mL/min >60 [facility] 28.8 RATIO 10-20 [facility] 26.0 mmol/L 21.0-32.0 [facility] Platelets bldOrdered By: Bart Linares on 02-02-2023 Platelets (Bld) [#/Vol] 299 10*3/uL 150-450 [facility] Serum or plasma calcium tai urement (mass/volume)Ordered By: Lizet Linares on 02-02-2023 Calcium [Mass/Vol] 8.0 mg/dL 8.5-10.1 [facility] Serum or plasma creatinine m easurement (mass/volume)Ordered By: Lizet Linares on 02-02-2023 Creatinine [Mass/Vol] 1.11 mg/dL 0.55-1.02 [facility] Comment on above: The validity of the calculated GFR & GFRAA in patients over 70 years has not been determined. Clinical correlation is essential. Serum or plasma urea nitroge n measurement (mass/volume)Ordered By: Lizet Linares on 02-02-2023 Urea nitrogen [Mass/Vol] 32 mg/dL 7-18 [facility] Thin prep Papanicolaou smear with manual screeningOrdered By: Lizet Linares on 02-02-2023 Thin prep Papanicolaou smear with manual screening 7 5-15 [facility] Absolute lymphocyte countOrd ered By: ED PROVIDER on 01-29-2023 Lymphocytes Auto (Unsp spec) [#/Vol] 2.44 10*3/uL 0.83-4.51 [facility] Basophil percentageOrdered B y: ED PROVIDER on 01-29-2023 Basophil percentage 311 mg/dL 74-106 [facility] Basophil percentage 135 mmol/L 136-145 [facility] Basophil percentage 4.1 mmol/L 3.5-5.1 [facility] Basophil percentage 99 mmol/L 98-107 [facility] Basophils (Bld) [#/Vol] 12.0 10*3/uL 4.4-11.0 [facility] Basophils (Bld) [#/Vol] 9.0 10*3/uL 2.0-7.7 [facility] Basophils/100 WBC (Bld) 74.7 % 47-70 [facility] Basophils/100 WBC (Bld) 0.0 % 0-5 [facility] Basophils/100 WBC (Bld) 0.3 % 0-1 [facility] Chloride [Moles/Vol] 99 mmol/L 98-107 [facility] Eosinophils/100 WBC (Bld) 0.0 % 0-5 [facility] Glucose [Mass/Vol] 311 mg/dL 74-106 [facility] Comment on above: Glucose result great er than or equal to 200 mg/dLsuggests DIABETES MELLITUS per A.D.A. criteria. Neutrophils (Bld) [#/Vol] 9.0 10*3/uL 2.0-7.7 [facility] Neutrophils/100 WBC (Bld) 74.7 % 47-70 [facility] Potassium [Moles/Vol] 4.1 mmol/L 3.5-5.1 [facility] Sodium [Moles/Vol] 135 mmol/L 136-145 [facility] WBC (Bld) [#/Vol] 12.0 10*3/uL 4.4-11.0 [facility] Blood erythrocytes count (nu mber/volume)Ordered By: ED PROVIDER on 01-29-2023 RBC (Bld) [#/Vol] 4.25 10*6/uL 4.2-5.4 [facility] Blood hemoglobin measurement (mass/volume)Ordered By: ED PROVIDER on 01-29-2023 Hemoglobin (Bld) [Mass/Vol] 12.4 g/dL 12.0-15.0 [facility] Blood lymphocytes/100 leukoc ytesOrdered By: ED PROVIDER on 01-29-2023 Lymphocytes/100 WBC (Bld) 20.3 % 19-41 [facility] Blood monocytes/100 leukocyt esOrdered By: ED PROVIDER on 01-29-2023 Monocytes/100 WBC (Bld) 4.0 % 0-10 [facility] Blood platelet mean volumeOr dered By: ED PROVIDER on 01-29-2023 Platelet mean volume (Bld) [Entitic vol] 9.3 fL 6.2-12.0 [facility] Determination of erythrocyte mean corpuscular volume (MCV)Ordered By: ED PROVIDER on 01-29-2023 MCV (RBC) [Entitic vol] 89.2 fL 81-99 [facility] Hematocrit Auto (Bld) [Volum e fraction]Ordered By: ED PROVIDER on 01-29-2023 Hematocrit (Bld) [Volume fraction] 37.9 % 37-47 [facility] - Chemistry and C hemistry - challengeOrdered By: ED PROVIDER on 01-29-2023 CO2 [Moles/Vol] 28.0 mmol/L 21.0-32.0 [facility] Urea nitrogen/Creatinine [Mass ratio] 22.3 mg/mg 10-20 [facility] - Hematology and Cell countsOrdered By: ED PROVIDER on 01-29-2023 Erythrocyte distribution width (RBC) [Entitic vol] 43.1 fL 35.1-43.9 [facility] Erythrocyte distribution width (RBC) [Ratio] 13.2 % 11.6-14.6 [facility] Immature granulocytes/100 WBC (Bld) 0.700 % 0.0-0.9 [facility] Comment on above: IG% - Immature Granu locytes (promyelocytes, myelocytes and metamyelocytes) > 1% indicates that a LEFT SHIFT is Present. MCH (RBC) [Entitic mass] 29.2 pg 27.0-32.0 [facility] Nucleated RBC/100 WBC (Bld) [Ratio] 0 % 0-5 [facility] Auto (RBC) [Mass/Vol]Or dered By: ED PROVIDER on 01-29-2023 MCHC (RBC) [Mass/Vol] 32.7 g/dL 32-36 [facility] No Panel InformationOrdered By: Dr. Dunn on 01-29-2023 Troponin I High Sensitivity 13 pg/mL 3.0-54.0 [facility] Comment on above: Please Note: New Carolann t Units and Gender Specific Reference Ranges. For more information see Policy Stat Procedure [place] High Sensitivity Troponin (TNIH) and attachments. 13 pg/mL 3.0-54.0 [facility] D-Dimer Quantitative (PE/DVT) 0.39 FEU/ug/m 0.27-0.49 [facility] Comment on above: NORMAL D-Dimer level (<0.50) indicates no DVT or PE. 0.39 FEU/ug/m 0.27-0.49 [facility] No Panel InformationOrdered By: ED PROVIDER on 01-29-2023 Estimated Creatinine Clearance Calc 38.85 ml/min [facility] Estimated GFR (MDRD) Amer 64 mL/min >60 [facility] Comment on above: GFR Calc Estimated GFR (MDRD) Non-Af Amer 53 mL/min >60 [facility] Comment on above: Non- GFR Calc 29.2 pg 27.0-32.0 [facility] 13.2 % 11.6-14.6 [facility] 43.1 fl 35.1-43.9 [facility] 0.700 % 0.0-0.9 [facility] 0 % 0-5 [facility] 53 mL/min >60 [facility] 64 mL/min >60 [facility] 38.85 ml/min [facility] 22.3 RATIO 10-20 [facility] 28.0 mmol/L 21.0-32.0 [facility] Platelets bldOrdered By: ED PROVIDER on 01-29-2023 Platelets (Bld) [#/Vol] 347 10*3/uL 150-450 [facility] Serum or plasma calcium tai urement (mass/volume)Ordered By: ED PROVIDER on 01-29-2023 Calcium [Mass/Vol] 9.3 mg/dL 8.5-10.1 [facility] Serum or plasma creatinine m easurement (mass/volume)Ordered By: ED PROVIDER on 01-29-2023 Creatinine [Mass/Vol] 1.12 mg/dL 0.55-1.02 [facility] Comment on above: The validity of the calculated GFR & GFRAA in patients over 70 years has not been determined. Clinical correlation is essential. Serum or plasma urea nitroge n measurement (mass/volume)Ordered By: ED PROVIDER on 01-29-2023 Urea nitrogen [Mass/Vol] 25 mg/dL 7-18 [facility] Thin prep Papanicolaou smear with manual screeningOrdered By: ED PROVIDER on 01-29-2023 Thin prep Papanicolaou smear with manual screening 8 5-15 [facility] Basophil percentageOrdered B y: Ganesh Garcia on 01-19-2023 Basophil percentage 197 mg/dL 74-106 [facility] Basophil percentage 138 mmol/L 136-145 [facility] Basophil percentage 4.0 mmol/L 3.5-5.1 [facility] Basophil percentage 106 mmol/L 98-107 [facility] Basophils (Bld) [#/Vol] 6.4 10*3/uL 4.4-11.0 [facility] Chloride [Moles/Vol] 106 mmol/L 98-107 [facility] Glucose [Mass/Vol] 197 mg/dL 74-106 [facility] Comment on above: Fasting Glucose resu lt greater than or equal to 126 mg/dL suggests DIABETES MELLITUS per A.D.A. criteria. Potassium [Moles/Vol] 4.0 mmol/L 3.5-5.1 [facility] Sodium [Moles/Vol] 138 mmol/L 136-145 [facility] WBC (Bld) [#/Vol] 6.4 10*3/uL 4.4-11.0 [facility] Blood erythrocytes count (nu mber/volume)Ordered By: Ganesh Garcia on 01-19-2023 RBC (Bld) [#/Vol] 3.58 10*6/uL 4.2-5.4 [facility] Blood hemoglobin measurement (mass/volume)Ordered By: Ganesh Garcia on 01-19-2023 Hemoglobin (Bld) [Mass/Vol] 10.4 g/dL 12.0-15.0 [facility] Blood platelet mean volumeOr dered By: Ganesh Garcia on 01-19-2023 Platelet mean volume (Bld) [Entitic vol] 9.9 fL 6.2-12.0 [facility] Determination of erythrocyte mean corpuscular volume (MCV)Ordered By: Ganesh Garcia on 01-19-2023 MCV (RBC) [Entitic vol] 92.5 fL 81-99 [facility] Hematocrit Auto (Bld) [Volum e fraction]Ordered By: Ganesh Garcia on 01-19-2023 Hematocrit (Bld) [Volume fraction] 33.1 % 37-47 [facility] - Chemistry and C hemistry - challengeOrdered By: Ganseh Garcia on 01-19-2023 CO2 [Moles/Vol] 27.0 mmol/L 21.0-32.0 [facility] Urea nitrogen/Creatinine [Mass ratio] 19.3 mg/mg 10-20 [facility] - Hematology and Cell countsOrdered By: Ganesh Garcia on 01-19-2023 Erythrocyte distribution width (RBC) [Entitic vol] 46.8 fL 35.1-43.9 [facility] Erythrocyte distribution width (RBC) [Ratio] 13.6 % 11.6-14.6 [facility] MCH (RBC) [Entitic mass] 29.1 pg 27.0-32.0 [facility] MCHC Auto (RBC) [Mass/Vol]Or dered By: Ganesh Garcia on 01-19-2023 MCHC (RBC) [Mass/Vol] 31.4 g/dL 32-36 [facility] No Panel InformationOrdered By: Ganesh Garcia on 01-19-2023 Estimated GFR (MDRD) Amer 74 mL/min >60 [facility] Comment on above: GFR Calc Estimated GFR (MDRD) Non-Af Amer 61 mL/min >60 [facility] Comment on above: Non- GFR Calc 29.1 pg 27.0-32.0 [facility] 13.6 % 11.6-14.6 [facility] 46.8 fl 35.1-43.9 [facility] 61 mL/min >60 [facility] 74 mL/min >60 [facility] 19.3 RATIO 10-20 [facility] 27.0 mmol/L 21.0-32.0 [facility] Platelets bldOrdered By: Robert Garcia on 01-19-2023 Platelets (Bld) [#/Vol] 285 10*3/uL 150-450 [facility] Serum or plasma calcium tai urement (mass/volume)Ordered By: Ganesh Garcia on 01-19-2023 Calcium [Mass/Vol] 8.7 mg/dL 8.5-10.1 [facility] Serum or plasma creatinine m easurement (mass/volume)Ordered By: Ganesh Garcia on 01-19-2023 Creatinine [Mass/Vol] 0.98 mg/dL 0.55-1.02 [facility] Comment on above: The validity of the calculated GFR & GFRAA in patients over 70 years has not been determined. Clinical correlation is essential. Serum or plasma urea nitroge n measurement (mass/volume)Ordered By: Ganesh Garcia on 01-19-2023 Urea nitrogen [Mass/Vol] 19 mg/dL 7-18 [facility] Thin prep Papanicolaou smear with manual screeningOrdered By: Ganesh Garcia on 01-19-2023 Thin prep Papanicolaou smear with manual screening 5 5-15 [facility] Basophil percentageOrdered B y: Ganesh Garcia on 01-18-2023 Basophil percentage 103 mg/dL <200 [facility] Basophil percentage 325 mg/dL <199 [facility] Cholesterol [Mass/Vol] 103 mg/dL <200 [facility] Comment on above: <200 mg/dL Desirable 200-240 mg/dL Borderline >240 mg/dL High Risk Triglyceride [Mass/Vol] 325 mg/dL <199 [facility] Comment on above: The drugs N-Acetylcy steine and Metamizole may falsely depress this assay.Serum Triglycerides Reference Interval Normal <150 mg/dL Borderline high 150 - 199 mg/dL High 200 - 499 mg/dL Very High > or = 500 mg/dL Serum or plasma cholesterol in HDL measurement (mass/volume)Ordered By: Ganesh Garcia on 01-18-2023 Cholesterol in HDL [Mass/Vol] 23 mg/dL >40 [facility] Comment on above: The drugs N-Acetylcy steine and Metamizole may falsely depress this assay. Reference Range HDL <40 mg/dL Low HDL Cholesterol HDL >or= 60 mg/dL High HDL Cholesterol Serum or plasma cholesterol in VLDL measurement (mass/volume)Ordered By: Ganesh Garcia on 01-18-2023 Cholesterol in VLDL [Mass/Vol] 65 mg/dL 5-40 [facility] Serum or plasma low density lipoprotein (LDL) cholesterol measurement (mass/volume)Ordered By: Ganesh Garcia on 01-18-2023 Cholesterol in LDL [Mass/Vol] 15 mg/dL 0-130 [facility] Absolute lymphocyte countOrd ered By: Dr. Govea on 01-06-2023 Lymphocytes Auto (Unsp spec) [#/Vol] 2.51 10*3/uL 0.83-4.51 [facility] Basophil percentageOrdered B y: Dr. Govea on 01-06-2023 Basophil percentage 0 SEEN /hpf 0-5 [facility] Basophil percentage 170 mg/dL 74-106 [facility] Basophil percentage 139 mmol/L 136-145 [facility] Basophil percentage 4.6 mmol/L 3.5-5.1 [facility] Basophil percentage 103 mmol/L 98-107 [facility] Basophils (Bld) [#/Vol] 6.5 10*3/uL 4.4-11.0 [facility] Basophils (Bld) [#/Vol] 3.4 10*3/uL 2.0-7.7 [facility] Basophils/100 WBC (Bld) 53.1 % 47-70 [facility] Basophils/100 WBC (Bld) 1.7 % 0-5 [facility] Basophils/100 WBC (Bld) 0.5 % 0-1 [facility] Chloride [Moles/Vol] 103 mmol/L 98-107 [facility] Eosinophils/100 WBC (Bld) 1.7 % 0-5 [facility] Glucose [Mass/Vol] 170 mg/dL 74-106 [facility] Comment on above: Fasting Glucose resu lt greater than or equal to 126 mg/dL suggests DIABETES MELLITUS per A.D.A. criteria. Neutrophils (Bld) [#/Vol] 3.4 10*3/uL 2.0-7.7 [facility] Neutrophils/100 WBC (Bld) 53.1 % 47-70 [facility] Potassium [Moles/Vol] 4.6 mmol/L 3.5-5.1 [facility] Sodium [Moles/Vol] 139 mmol/L 136-145 [facility] WBC (Bld) [#/Vol] 6.5 10*3/uL 4.4-11.0 [facility] Bilirubin Test strip Ql (U)O rdered By: Dr. Govea on 01-06-2023 Bilirubin Ql (U) Negative Negative [facility] Blood erythrocytes count (nu mber/volume)Ordered By: Dr. Govea on 01-06-2023 RBC (Bld) [#/Vol] 4.01 10*6/uL 4.2-5.4 [facility] Blood hemoglobin measurement (mass/volume)Ordered By: Dr. Govea on 01-06-2023 Hemoglobin (Bld) [Mass/Vol] 11.6 g/dL 12.0-15.0 [facility] Blood lymphocytes/100 leukoc ytesOrdered By: Dr. Govea on 01-06-2023 Lymphocytes/100 WBC (Bld) 38.7 % 19-41 [facility] Blood monocytes/100 leukocyt esOrdered By: Dr. Govea on 01-06-2023 Monocytes/100 WBC (Bld) 5.7 % 0-10 [facility] Blood platelet mean volumeOr dered By: Dr. Govea on 01-06-2023 Platelet mean volume (Bld) [Entitic vol] 9.1 fL 6.2-12.0 [facility] Determination of erythrocyte mean corpuscular volume (MCV)Ordered By: Dr. Govea on 01-06-2023 MCV (RBC) [Entitic vol] 90.8 fL 81-99 [facility] Hematocrit Auto (Bld) [Volum e fraction]Ordered By: Dr. Govea on 01-06-2023 Hematocrit (Bld) [Volume fraction] 36.4 % 37-47 [facility] Ketones Test strip Ql (U)Ord ered By: Dr. Govea on 01-06-2023 Ketones Ql (U) Negative Negative [facility] - Chemistry and C hemistry - challengeOrdered By: Dr. Govea on 01-06-2023 CO2 [Moles/Vol] 28.0 mmol/L 21.0-32.0 [facility] Urea nitrogen/Creatinine [Mass ratio] 23.6 mg/mg 10-20 [facility] - Hematology and Cell countsOrdered By: Dr. Govea on 01-06-2023 Erythrocyte distribution width (RBC) [Entitic vol] 44.8 fL 35.1-43.9 [facility] Erythrocyte distribution width (RBC) [Ratio] 13.6 % 11.6-14.6 [facility] Immature granulocytes/100 WBC (Bld) 0.300 % 0.0-0.9 [facility] Comment on above: IG% - Immature Granu locytes (promyelocytes, myelocytes and metamyelocytes) > 1% indicates that a LEFT SHIFT is Present. MCH (RBC) [Entitic mass] 28.9 pg 27.0-32.0 [facility] Nucleated RBC/100 WBC (Bld) [Ratio] 0 % 0-5 [facility] MCHC Auto (RBC) [Mass/Vol]Or dered By: Dr. Govea on 01-06-2023 MCHC (RBC) [Mass/Vol] 31.9 g/dL 32-36 [facility] Mucus LM Ql (Urine sed)Order ed By: Dr. Govea on 01-06-2023 Mucus Ql (Urine sed) 0 SEEN /hpf [facility] Nitrite Test strip Ql (U)Ord ered By: Dr. Govea on 01-06-2023 Nitrite Ql (U) Negative Negative [facility] No Panel InformationOrdered By: Dr. Govea on 01-06-2023 Estimated Creatinine Clearance Calc 46.78 ml/min [facility] Estimated GFR (MDRD) Amer 79 mL/min >60 [facility] Comment on above: GFR Calc Estimated GFR (MDRD) Non-Af Amer 65 mL/min >60 [facility] Comment on above: Non- GFR Calc 28.9 pg 27.0-32.0 [facility] 13.6 % 11.6-14.6 [facility] 44.8 fl 35.1-43.9 [facility] 0.300 % 0.0-0.9 [facility] 0 % 0-5 [facility] 65 mL/min >60 [facility] 79 mL/min >60 [facility] 46.78 ml/min [facility] 23.6 RATIO 10-20 [facility] 28.0 mmol/L 21.0-32.0 [facility] Platelets bldOrdered By: Dr. Govea on 01-06-2023 Platelets (Bld) [#/Vol] 295 10*3/uL 150-450 [facility] Protein Test strip Ql (U)Ord ered By: Dr. Govea on 01-06-2023 Protein Ql (U) Negative Negative [facility] Serum or plasma calcium tai urement (mass/volume)Ordered By: Dr. Govea on 01-06-2023 Calcium [Mass/Vol] 9.2 mg/dL 8.5-10.1 [facility] Serum or plasma creatinine m easurement (mass/volume)Ordered By: Dr. Govea on 01-06-2023 Creatinine [Mass/Vol] 0.93 mg/dL 0.55-1.02 [facility] Comment on above: The validity of the calculated GFR & GFRAA in patients over 70 years has not been determined. Clinical correlation is essential. Serum or plasma urea nitroge n measurement (mass/volume)Ordered By: Dr. Govea on 01-06-2023 Urea nitrogen [Mass/Vol] 22 mg/dL 7-18 [facility] Squamous epithelial cells de tection in urine sediment by light microscopyOrdered By: Dr. Govea on 01-06-2023 Epithelial cells.squamous LM Ql (Urine sed) 0 SEEN /hpf 5-10 [facility] Thin prep Papanicolaou smear with manual screeningOrdered By: Dr. Govea on 01-06-2023 Thin prep Papanicolaou smear with manual screening 8 5-15 [facility] Urine blood detectionOrdered By: Dr. Govea on 01-06-2023 RBC Ql (U) Negative Negative [facility] RBC Ql (U) 0 SEEN /hpf 0-5 [facility] Urine clarityOrdered By: Dr. Govea on 01-06-2023 Clarity (U) Clear Clear [facility] Urine color determinationOrd ered By: Dr. Govea on 01-06-2023 Color (U) Yellow Yellow [facility] Urine glucose detectionOrder ed By: Dr. Govea on 01-06-2023 Glucose Ql (U) Normal mg/dl Normal [facility] Urine leukocyte esterase det ection by dipstickOrdered By: Dr. Govea on 01-06-2023 Leukocyte esterase Test strip Ql (U) Negative Negative [facility] Urine pHOrdered By: Dr. Jovanni butler on 01-06-2023 pH (U) 7.0 [pH] 5.0 - 8.0 [facility] Urine sediment bacteria coun t by microscopy (number/high power field)Ordered By: Dr. Govea on 01-06-2023 Bacteria LM.HPF (Urine sed) [#/Area] 0 /[HPF] None Seen [facility] Urine specific gravity measu rementOrdered By: Dr. Govea on 01-06-2023 Specific gravity (U) [Rel density] 1.010 1.002-1.03 0 [facility] Urobilinogen Auto test strip Ql (U)Ordered By: Dr. Govea on 01-06-2023 Urobilinogen Ql (U) Normal mg/dl Normal [facility] Basophil percentageOrdered B y: Ganesh Garcia on 01-05-2023 Basophil percentage 175 mg/dL 74-106 [facility] Basophil percentage 140 mmol/L 136-145 [facility] Basophil percentage 4.1 mmol/L 3.5-5.1 [facility] Basophil percentage 104 mmol/L 98-107 [facility] Basophils (Bld) [#/Vol] 7.1 10*3/uL 4.4-11.0 [facility] Chloride [Moles/Vol] 104 mmol/L 98-107 [facility] Glucose [Mass/Vol] 175 mg/dL 74-106 [facility] Comment on above: Fasting Glucose resu lt greater than or equal to 126 mg/dL suggests DIABETES MELLITUS per A.D.A. criteria. Potassium [Moles/Vol] 4.1 mmol/L 3.5-5.1 [facility] Sodium [Moles/Vol] 140 mmol/L 136-145 [facility] WBC (Bld) [#/Vol] 7.1 10*3/uL 4.4-11.0 [facility] Blood erythrocytes count (nu mber/volume)Ordered By: Ganesh Garcia on 01-05-2023 RBC (Bld) [#/Vol] 3.70 10*6/uL 4.2-5.4 [facility] Blood hemoglobin measurement (mass/volume)Ordered By: Ganesh Garcia on 01-05-2023 Hemoglobin (Bld) [Mass/Vol] 11.0 g/dL 12.0-15.0 [facility] Blood platelet mean volumeOr dered By: Ganesh Garcia on 01-05-2023 Platelet mean volume (Bld) [Entitic vol] 9.1 fL 6.2-12.0 [facility] Determination of erythrocyte mean corpuscular volume (MCV)Ordered By: Ganesh Garcia on 01-05-2023 MCV (RBC) [Entitic vol] 91.9 fL 81-99 [facility] Hematocrit Auto (Bld) [Volum e fraction]Ordered By: Ganesh Garcia on 01-05-2023 Hematocrit (Bld) [Volume fraction] 34.0 % 37-47 [facility] - Chemistry and C hemistry - challengeOrdered By: Ganesh Garcia on 01-05-2023 CO2 [Moles/Vol] 28.0 mmol/L 21.0-32.0 [facility] Urea nitrogen/Creatinine [Mass ratio] 21.5 mg/mg 10-20 [facility] - Hematology and Cell countsOrdered By: Ganesh Garcia on 01-05-2023 Erythrocyte distribution width (RBC) [Entitic vol] 46.1 fL 35.1-43.9 [facility] Erythrocyte distribution width (RBC) [Ratio] 13.9 % 11.6-14.6 [facility] MCH (RBC) [Entitic mass] 29.7 pg 27.0-32.0 [facility] MCHC Auto (RBC) [Mass/Vol]Or dered By: Ganesh Garcia on 01-05-2023 MCHC (RBC) [Mass/Vol] 32.4 g/dL 32-36 [facility] No Panel InformationOrdered By: Ganesh Garcia on 01-05-2023 Estimated GFR (MDRD) Amer 75 mL/min >60 [facility] Comment on above: GFR Calc Estimated GFR (MDRD) Non-Af Amer 62 mL/min >60 [facility] Comment on above: Non- GFR Calc 29.7 pg 27.0-32.0 [facility] 13.9 % 11.6-14.6 [facility] 46.1 fl 35.1-43.9 [facility] 62 mL/min >60 [facility] 75 mL/min >60 [facility] 21.5 RATIO 10-20 [facility] 28.0 mmol/L 21.0-32.0 [facility] Platelets bldOrdered By: Robert Garcia on 01-05-2023 Platelets (Bld) [#/Vol] 299 10*3/uL 150-450 [facility] Serum or plasma calcium tai urement (mass/volume)Ordered By: Ganesh Garcia on 01-05-2023 Calcium [Mass/Vol] 9.0 mg/dL 8.5-10.1 [facility] Serum or plasma creatinine m easurement (mass/volume)Ordered By: Ganesh Garcia on 01-05-2023 Creatinine [Mass/Vol] 0.98 mg/dL 0.55-1.02 [facility] Comment on above: The validity of the calculated GFR & GFRAA in patients over 70 years has not been determined. Clinical correlation is essential. Serum or plasma urea nitroge n measurement (mass/volume)Ordered By: Ganesh Garcia on 01-05-2023 Urea nitrogen [Mass/Vol] 21 mg/dL 7-18 [facility] Thin prep Papanicolaou smear with manual screeningOrdered By: Ganesh Garcia on 01-05-2023 Thin prep Papanicolaou smear with manual screening 8 5-15 [facility] Basophil percentageOrdered B y: Asmitanatasha Milagros on 12-28-2022 Basophil percentage 310 mg/dL 74-106 [facility] Basophil percentage 137 mmol/L 136-145 [facility] Basophil percentage 3.8 mmol/L 3.5-5.1 [facility] Basophil percentage 103 mmol/L 98-107 [facility] Chloride [Moles/Vol] 103 mmol/L 98-107 [facility] Glucose [Mass/Vol] 310 mg/dL 74-106 [facility] Comment on above: Glucose result great er than or equal to 200 mg/dLsuggests DIABETES MELLITUS per A.D.A. criteria. Potassium [Moles/Vol] 3.8 mmol/L 3.5-5.1 [facility] Sodium [Moles/Vol] 137 mmol/L 136-145 [facility] Laboratory - Chemistry and C hemistry - challengeOrdered By: Lizet Linares on 12-28-2022 CO2 [Moles/Vol] 26.0 mmol/L 21.0-32.0 [facility] Urea nitrogen/Creatinine [Mass ratio] 20.3 mg/mg 10-20 [facility] No Panel InformationOrdered By: Lizet Linares on 12-28-2022 Estimated GFR (MDRD) Amer 74 mL/min >60 [facility] Comment on above: GFR Calc Estimated GFR (MDRD) Non-Af Amer 61 mL/min >60 [facility] Comment on above: Non- GFR Calc 61 mL/min >60 [facility] 74 mL/min >60 [facility] 20.3 RATIO 08-13 [facility] 26.0 mmol/L 21.0-32.0 [facility] Serum or plasma calcium tai urement (mass/volume)Ordered By: Lizet Linares on 12-28-2022 Calcium [Mass/Vol] 8.7 mg/dL 8.5-10.1 [facility] Serum or plasma creatinine m easurement (mass/volume)Ordered By: Lizet Linares on 12-28-2022 Creatinine [Mass/Vol] 0.99 mg/dL 0.55-1.02 [facility] Comment on above: The validity of the calculated GFR & GFRAA in patients over 70 years has not been determined. Clinical correlation is essential. Serum or plasma urea nitroge n measurement (mass/volume)Ordered By: Lizet Linares on 12-28-2022 Urea nitrogen [Mass/Vol] 20 mg/dL 7-18 [facility] Thin prep Papanicolaou smear with manual screeningOrdered By: Lizet Linares on 12-28-2022 Thin prep Papanicolaou smear with manual screening 8 5-15 [facility] No Panel InformationOrdered By: Lizet Linares on 12-23-2022 Thyroid Stimulating Hormone (TSH) 0.40 uIU/mL 0.358-3.74 [facility] 0.40 uIU/mL 0.358-3.74 [facility] Whole blood hemoglobin A1c/t otal hemoglobin ratio (mass fraction)Ordered By: Lizet Linares on 12-23-2022 HbA1c (Bld) [Mass fraction] 7.9 % 3.8-5.6 [facility] Comment on above: Normal < 5.7 % Predi abetic 5.7 - 6.4 % Diabetic >or= 6.5 % Please note range changes. Basophil percentageOrdered B y: Lizet Linares on 12-22-2022 Basophil percentage 169 mg/dL 74-106 [facility] Basophil percentage 138 mmol/L 136-145 [facility] Basophil percentage 3.9 mmol/L 3.5-5.1 [facility] Basophil percentage 104 mmol/L 98-107 [facility] Basophils (Bld) [#/Vol] 7.4 10*3/uL 4.4-11.0 [facility] Chloride [Moles/Vol] 104 mmol/L 98-107 [facility] Glucose [Mass/Vol] 169 mg/dL 74-106 [facility] Comment on above: Fasting Glucose resu lt greater than or equal to 126 mg/dL suggests DIABETES MELLITUS per A.D.A. criteria. Potassium [Moles/Vol] 3.9 mmol/L 3.5-5.1 [facility] Sodium [Moles/Vol] 138 mmol/L 136-145 [facility] WBC (Bld) [#/Vol] 7.4 10*3/uL 4.4-11.0 [facility] Blood erythrocytes count (nu mber/volume)Ordered By: Lizet Linares on 12-22-2022 RBC (Bld) [#/Vol] 3.75 10*6/uL 4.2-5.4 [facility] Blood hemoglobin measurement (mass/volume)Ordered By: Lizet Linares on 12-22-2022 Hemoglobin (Bld) [Mass/Vol] 10.6 g/dL 12.0-15.0 [facility] Blood platelet mean volumeOr dered By: Lizet Linares on 12-22-2022 Platelet mean volume (Bld) [Entitic vol] 9.7 fL 6.2-12.0 [facility] Determination of erythrocyte mean corpuscular volume (MCV)Ordered By: Lizet Linares on 12-22-2022 MCV (RBC) [Entitic vol] 92.0 fL 81-99 [facility] Hematocrit Auto (Bld) [Volum e fraction]Ordered By: Lizet Linares on 12-22-2022 Hematocrit (Bld) [Volume fraction] 34.5 % 37-47 [facility] - Chemistry and C hemistry - challengeOrdered By: Lizet Linares on 12-22-2022 CO2 [Moles/Vol] 26.0 mmol/L 21.0-32.0 [facility] Urea nitrogen/Creatinine [Mass ratio] 23.8 mg/mg 10-20 [facility] - Hematology and Cell countsOrdered By: Lizet Linares on 12-22-2022 Erythrocyte distribution width (RBC) [Entitic vol] 44.8 fL 35.1-43.9 [facility] Erythrocyte distribution width (RBC) [Ratio] 13.4 % 11.6-14.6 [facility] MCH (RBC) [Entitic mass] 28.3 pg 27.0-32.0 [facility] MCHC Auto (RBC) [Mass/Vol]Or dered By: Lizet Linares on 12-22-2022 MCHC (RBC) [Mass/Vol] 30.7 g/dL 32-36 [facility] No Panel InformationOrdered By: Lizet Linares on 12-22-2022 Estimated GFR (MDRD) Amer 72 mL/min >60 [facility] Comment on above: GFR Calc Estimated GFR (MDRD) Non-Af Amer 60 mL/min >60 [facility] Comment on above: Non- GFR Calc 28.3 pg 27.0-32.0 [facility] 13.4 % 11.6-14.6 [facility] 44.8 fl 35.1-43.9 [facility] 60 mL/min >60 [facility] 72 mL/min >60 [facility] 23.8 RATIO 10-20 [facility] 26.0 mmol/L 21.0-32.0 [facility] Platelets bldOrdered By: Bart Linares on 12-22-2022 Platelets (Bld) [#/Vol] 293 10*3/uL 150-450 [facility] Serum or plasma calcium tai urement (mass/volume)Ordered By: Lizet Linares on 12-22-2022 Calcium [Mass/Vol] 8.8 mg/dL 8.5-10.1 [facility] Serum or plasma creatinine m easurement (mass/volume)Ordered By: Lizet Linares on 12-22-2022 Creatinine [Mass/Vol] 1.01 mg/dL 0.55-1.02 [facility] Comment on above: The validity of the calculated GFR & GFRAA in patients over 70 years has not been determined. Clinical correlation is essential. Serum or plasma urea nitroge n measurement (mass/volume)Ordered By: Lizet Linares on 12-22-2022 Urea nitrogen [Mass/Vol] 24 mg/dL 7-18 [facility] Thin prep Papanicolaou smear with manual screeningOrdered By: Lizet Linares on 12-22-2022 Thin prep Papanicolaou smear with manual screening 8 5-15 [facility] Basophil percentageOrdered B y: Lizet Linares on 12-14-2022 Basophil percentage 170 mg/dL 74-106 [facility] Basophil percentage 139 mmol/L 136-145 [facility] Basophil percentage 4.1 mmol/L 3.5-5.1 [facility] Basophil percentage 104 mmol/L 98-107 [facility] Chloride [Moles/Vol] 104 mmol/L 98-107 [facility] Glucose [Mass/Vol] 170 mg/dL 74-106 [facility] Comment on above: Fasting Glucose resu lt greater than or equal to 126 mg/dL suggests DIABETES MELLITUS per A.D.A. criteria. Potassium [Moles/Vol] 4.1 mmol/L 3.5-5.1 [facility] Sodium [Moles/Vol] 139 mmol/L 136-145 [facility] Laboratory - Chemistry and C hemistry - challengeOrdered By: Lizet Linares on 12-14-2022 CO2 [Moles/Vol] 27.0 mmol/L 21.0-32.0 [facility] Urea nitrogen/Creatinine [Mass ratio] 24.8 mg/mg 08-13 [facility] No Panel InformationOrdered By: Lizet Linares on 12-14-2022 Estimated GFR (MDRD) Amer 72 mL/min >60 [facility] Comment on above: GFR Calc Estimated GFR (MDRD) Non-Af Amer 60 mL/min >60 [facility] Comment on above: Non- GFR Calc 60 mL/min >60 [facility] 72 mL/min >60 [facility] 24.8 RATIO 08-13 [facility] 27.0 mmol/L 21.0-32.0 [facility] Serum or plasma calcium tai urement (mass/volume)Ordered By: Lizet Linares on 12-14-2022 Calcium [Mass/Vol] 9.0 mg/dL 8.5-10.1 [facility] Serum or plasma creatinine m easurement (mass/volume)Ordered By: Lizet Linares on 12-14-2022 Creatinine [Mass/Vol] 1.01 mg/dL 0.55-1.02 [facility] Comment on above: The validity of the calculated GFR & GFRAA in patients over 70 years has not been determined. Clinical correlation is essential. Serum or plasma urea nitroge n measurement (mass/volume)Ordered By: Lizet Linares on 12-14-2022 Urea nitrogen [Mass/Vol] 25 mg/dL 7-18 [facility] Thin prep Papanicolaou smear with manual screeningOrdered By: Lizet Linares on 12-14-2022 Thin prep Papanicolaou smear with manual screening 8 5-15 [facility] Basophil percentageOrdered B y: Lizet Linares on 12-08-2022 Basophil percentage 107 mg/dL 74-106 [facility] Basophil percentage 141 mmol/L 136-145 [facility] Basophil percentage 4.5 mmol/L 3.5-5.1 [facility] Basophil percentage 108 mmol/L 98-107 [facility] Basophils (Bld) [#/Vol] 6.6 10*3/uL 4.4-11.0 [facility] Chloride [Moles/Vol] 108 mmol/L 98-107 [facility] Glucose [Mass/Vol] 107 mg/dL 74-106 [facility] Comment on above: Fasting Glucose resu lt from 100 to 125 mg/dL suggests IMPAIRED HOMEOSTASIS per A.D.A. criteria. Potassium [Moles/Vol] 4.5 mmol/L 3.5-5.1 [facility] Sodium [Moles/Vol] 141 mmol/L 136-145 [facility] WBC (Bld) [#/Vol] 6.6 10*3/uL 4.4-11.0 [facility] Blood erythrocytes count (nu mber/volume)Ordered By: Lizet Linares on 12-08-2022 RBC (Bld) [#/Vol] 3.93 10*6/uL 4.2-5.4 [facility] Blood hemoglobin measurement (mass/volume)Ordered By: Lizet Linares on 12-08-2022 Hemoglobin (Bld) [Mass/Vol] 11.3 g/dL 12.0-15.0 [facility] Blood platelet mean volumeOr dered By: Lizet Linares on 12-08-2022 Platelet mean volume (Bld) [Entitic vol] 9.7 fL 6.2-12.0 [facility] Determination of erythrocyte mean corpuscular volume (MCV)Ordered By: Lizet Linares on 12-08-2022 MCV (RBC) [Entitic vol] 90.8 fL 81-99 [facility] Hematocrit Auto (Bld) [Volum e fraction]Ordered By: Lizet Linares on 12-08-2022 Hematocrit (Bld) [Volume fraction] 35.7 % 37-47 [facility] - Chemistry and C hemistry - challengeOrdered By: Lizet Linares on 12-08-2022 CO2 [Moles/Vol] 25.0 mmol/L 21.0-32.0 [facility] Urea nitrogen/Creatinine [Mass ratio] 26.2 mg/mg 10-20 [facility] - Hematology and Cell countsOrdered By: Lizet Linares on 12-08-2022 Erythrocyte distribution width (RBC) [Entitic vol] 45.8 fL 35.1-43.9 [facility] Erythrocyte distribution width (RBC) [Ratio] 13.8 % 11.6-14.6 [facility] MCH (RBC) [Entitic mass] 28.8 pg 27.0-32.0 [facility] MCHC Auto (RBC) [Mass/Vol]Or dered By: Lizet Linares on 12-08-2022 MCHC (RBC) [Mass/Vol] 31.7 g/dL 32-36 [facility] No Panel InformationOrdered By: Lizet Linares on 12-08-2022 Estimated GFR (MDRD) Amer 77 mL/min >60 [facility] Comment on above: GFR Calc Estimated GFR (MDRD) Non-Af Amer 64 mL/min >60 [facility] Comment on above: Non- GFR Calc 28.8 pg 27.0-32.0 [facility] 13.8 % 11.6-14.6 [facility] 45.8 fl 35.1-43.9 [facility] 64 mL/min >60 [facility] 77 mL/min >60 [facility] 26.2 RATIO 10-20 [facility] 25.0 mmol/L 21.0-32.0 [facility] Platelets bldOrdered By: Bart Linares on 12-08-2022 Platelets (Bld) [#/Vol] 287 10*3/uL 150-450 [facility] Serum or plasma calcium tai urement (mass/volume)Ordered By: Lizet Linares on 12-08-2022 Calcium [Mass/Vol] 9.0 mg/dL 8.5-10.1 [facility] Serum or plasma creatinine m easurement (mass/volume)Ordered By: Lizet Linares on 12-08-2022 Creatinine [Mass/Vol] 0.95 mg/dL 0.55-1.02 [facility] Comment on above: The validity of the calculated GFR & GFRAA in patients over 70 years has not been determined. Clinical correlation is essential. Serum or plasma urea nitroge n measurement (mass/volume)Ordered By: Lizet Linares on 12-08-2022 Urea nitrogen [Mass/Vol] 25 mg/dL 7-18 [facility] Thin prep Papanicolaou smear with manual screeningOrdered By: Lizet Linares on 12-08-2022 Thin prep Papanicolaou smear with manual screening 8 5-15 [facility] Basophil percentageOrdered B y: Lizet Linares on 11-24-2022 Basophil percentage 208 mg/dL 74-106 [facility] Basophil percentage 141 mmol/L 136-145 [facility] Basophil percentage 4.2 mmol/L 3.5-5.1 [facility] Basophil percentage 108 mmol/L 98-107 [facility] Basophils (Bld) [#/Vol] 6.2 10*3/uL 4.4-11.0 [facility] Chloride [Moles/Vol] 108 mmol/L 98-107 [facility] Glucose [Mass/Vol] 208 mg/dL 74-106 [facility] Comment on above: Glucose result great er than or equal to 200 mg/dLsuggests DIABETES MELLITUS per A.D.A. criteria. Potassium [Moles/Vol] 4.2 mmol/L 3.5-5.1 [facility] Sodium [Moles/Vol] 141 mmol/L 136-145 [facility] WBC (Bld) [#/Vol] 6.2 10*3/uL 4.4-11.0 [facility] Blood erythrocytes count (nu mber/volume)Ordered By: Lizet Linares on 11-24-2022 RBC (Bld) [#/Vol] 3.94 10*6/uL 4.2-5.4 [facility] Blood hemoglobin measurement (mass/volume)Ordered By: Lizet Linares on 11-24-2022 Hemoglobin (Bld) [Mass/Vol] 11.0 g/dL 12.0-15.0 [facility] Blood platelet mean volumeOr dered By: Lizet Linares on 11-24-2022 Platelet mean volume (Bld) [Entitic vol] 10.0 fL 6.2-12.0 [facility] Determination of erythrocyte mean corpuscular volume (MCV)Ordered By: Lizet Linares on 11-24-2022 MCV (RBC) [Entitic vol] 90.9 fL 81-99 [facility] Hematocrit Auto (Bld) [Volum e fraction]Ordered By: Lizet Linares on 11-24-2022 Hematocrit (Bld) [Volume fraction] 35.8 % 37-47 [facility] - Chemistry and C hemistry - challengeOrdered By: Lizet Linares on 11-24-2022 CO2 [Moles/Vol] 26.0 mmol/L 21.0-32.0 [facility] Urea nitrogen/Creatinine [Mass ratio] 17.6 mg/mg 10- [facility] - Hematology and Cell countsOrdered By: Lizet Linares on 11-24-2022 Erythrocyte distribution width (RBC) [Entitic vol] 46.9 fL 35.1-43.9 [facility] Erythrocyte distribution width (RBC) [Ratio] 14.0 % 11.6-14.6 [facility] MCH (RBC) [Entitic mass] 27.9 pg 27.0-32.0 [facility] MCHC Auto (RBC) [Mass/Vol]Or dered By: Lizet Linares on 11-24-2022 MCHC (RBC) [Mass/Vol] 30.7 g/dL 32-36 [facility] No Panel InformationOrdered By: Lizet Linares on 11-24-2022 Estimated GFR (MDRD) Amer 71 mL/min >60 [facility] Comment on above: GFR Calc Estimated GFR (MDRD) Non-Af Amer 59 mL/min >60 [facility] Comment on above: Non- GFR Calc 27.9 pg 27.0-32.0 [facility] 14.0 % 11.6-14.6 [facility] 46.9 fl 35.1-43.9 [facility] 59 mL/min >60 [facility] 71 mL/min >60 [facility] 17.6 RATIO 10-20 [facility] 26.0 mmol/L 21.0-32.0 [facility] Platelets bldOrdered By: Bart Linares on 11-24-2022 Platelets (Bld) [#/Vol] 270 10*3/uL 150-450 [facility] Serum or plasma calcium tai urement (mass/volume)Ordered By: Lizet Linares on 11-24-2022 Calcium [Mass/Vol] 8.7 mg/dL 8.5-10.1 [facility] Serum or plasma creatinine m easurement (mass/volume)Ordered By: Lizet Linares on 11-24-2022 Creatinine [Mass/Vol] 1.02 mg/dL 0.55-1.02 [facility] Comment on above: The validity of the calculated GFR & GFRAA in patients over 70 years has not been determined. Clinical correlation is essential. Serum or plasma urea nitroge n measurement (mass/volume)Ordered By: Hollyjanellnatasha Linares on 11-24-2022 Urea nitrogen [Mass/Vol] 18 mg/dL 7-18 [facility] Thin prep Papanicolaou smear with manual screeningOrdered By: Lizet Milagros on 11-24-2022 Thin prep Papanicolaou smear with manual screening 7 5-15 [facility] Basophil percentageOrdered B y: Lizet Taypreet on 11-10-2022 Basophil percentage 189 mg/dL 74-106 [facility] Basophil percentage 136 mmol/L 136-145 [facility] Basophil percentage 4.4 mmol/L 3.5-5.1 [facility] Basophil percentage 101 mmol/L 98-107 [facility] Basophils (Bld) [#/Vol] 7.5 10*3/uL 4.4-11.0 [facility] Chloride [Moles/Vol] 101 mmol/L 98-107 [facility] Glucose [Mass/Vol] 189 mg/dL 74-106 [facility] Comment on above: Fasting Glucose resu lt greater than or equal to 126 mg/dL suggests DIABETES MELLITUS per A.D.A. criteria. Potassium [Moles/Vol] 4.4 mmol/L 3.5-5.1 [facility] Comment on above: Slight Hemolysis, Re sult may be falsely increased. Sodium [Moles/Vol] 136 mmol/L 136-145 [facility] WBC (Bld) [#/Vol] 7.5 10*3/uL 4.4-11.0 [facility] Blood erythrocytes count (nu mber/volume)Ordered By: Lizet Linares on 11-10-2022 RBC (Bld) [#/Vol] 4.02 10*6/uL 4.2-5.4 [facility] Blood hemoglobin measurement (mass/volume)Ordered By: Lizet Linares on 11-10-2022 Hemoglobin (Bld) [Mass/Vol] 11.6 g/dL 12.0-15.0 [facility] Blood platelet mean volumeOr dered By: Lizet Linares on 11-10-2022 Platelet mean volume (Bld) [Entitic vol] 10.0 fL 6.2-12.0 [facility] Determination of erythrocyte mean corpuscular volume (MCV)Ordered By: Lizet Linares on 11-10-2022 MCV (RBC) [Entitic vol] 88.1 fL 81-99 [facility] Hematocrit Auto (Bld) [Volum e fraction]Ordered By: Lizet Linares on 11-10-2022 Hematocrit (Bld) [Volume fraction] 35.4 % 37-47 [facility] - Chemistry and C hemistry - challengeOrdered By: Lizet Linares on 11-10-2022 CO2 [Moles/Vol] 27.0 mmol/L 21.0-32.0 [facility] Urea nitrogen/Creatinine [Mass ratio] 22.6 mg/mg 10-20 [facility] - Hematology and Cell countsOrdered By: Lizet Linares on 11-10-2022 Erythrocyte distribution width (RBC) [Entitic vol] 44.0 fL 35.1-43.9 [facility] Erythrocyte distribution width (RBC) [Ratio] 13.6 % 11.6-14.6 [facility] MCH (RBC) [Entitic mass] 28.9 pg 27.0-32.0 [facility] MCHC Auto (RBC) [Mass/Vol]Or dered By: Lizet Linares on 11-10-2022 MCHC (RBC) [Mass/Vol] 32.8 g/dL 32-36 [facility] No Panel InformationOrdered By: Lizet Linares on 11-10-2022 Estimated GFR (MDRD) Amer 68 mL/min >60 [facility] Comment on above: GFR Calc Estimated GFR (MDRD) Non-Af Amer 56 mL/min >60 [facility] Comment on above: Non- GFR Calc 28.9 pg 27.0-32.0 [facility] 13.6 % 11.6-14.6 [facility] 44.0 fl 35.1-43.9 [facility] 56 mL/min >60 [facility] 68 mL/min >60 [facility] 22.6 RATIO 10-20 [facility] 27.0 mmol/L 21.0-32.0 [facility] Platelets bldOrdered By: Bart Linares on 11-10-2022 Platelets (Bld) [#/Vol] 292 10*3/uL 150-450 [facility] Serum or plasma calcium tai urement (mass/volume)Ordered By: Lizet Linares on 11-10-2022 Calcium [Mass/Vol] 8.9 mg/dL 8.5-10.1 [facility] Serum or plasma creatinine m easurement (mass/volume)Ordered By: Lizet Linares on 11-10-2022 Creatinine [Mass/Vol] 1.06 mg/dL 0.55-1.02 [facility] Comment on above: The validity of the calculated GFR & GFRAA in patients over 70 years has not been determined. Clinical correlation is essential. Serum or plasma urea nitroge n measurement (mass/volume)Ordered By: Lizet Linares on 11-10-2022 Urea nitrogen [Mass/Vol] 24 mg/dL 7-18 [facility] Thin prep Papanicolaou smear with manual screeningOrdered By: Lizet Linares on 11-10-2022 Thin prep Papanicolaou smear with manual screening 8 5-15 [facility] Whole blood hemoglobin A1c/t otal hemoglobin ratio (mass fraction)Ordered By: Lizet Linares on 11-10-2022 HbA1c (Bld) [Mass fraction] 11.3 % 3.8-5.6 [facility] Comment on above: Normal < 5.7 % Predi abetic 5.7 - 6.4 % Diabetic >or= 6.5 % Please note range changes. Absolute lymphocyte countOrd ered By: Dr. Camp on 11-05-2022 Lymphocytes Auto (Unsp spec) [#/Vol] 4.02 10*3/uL 0.83-4.51 [facility] Basophil percentageOrdered B y: Dr. Camp on 11-05-2022 Basophil percentage 441 mg/dL 74-106 [facility] Basophil percentage 133 mmol/L 136-145 [facility] Basophil percentage 4.7 mmol/L 3.5-5.1 [facility] Basophil percentage 99 mmol/L 98-107 [facility] Basophils (Bld) [#/Vol] 9.1 10*3/uL 4.4-11.0 [facility] Basophils (Bld) [#/Vol] 4.4 10*3/uL 2.0-7.7 [facility] Basophils/100 WBC (Bld) 0.8 % 0-1 [facility] Basophils/100 WBC (Bld) 48.7 % 47-70 [facility] Basophils/100 WBC (Bld) 1.7 % 0-5 [facility] Chloride [Moles/Vol] 99 mmol/L 98-107 [facility] Eosinophils/100 WBC (Bld) 1.7 % 0-5 [facility] Glucose [Mass/Vol] 441 mg/dL 74-106 [facility] Comment on above: Glucose result great er than or equal to 200 mg/dLsuggests DIABETES MELLITUS per A.D.A. criteria. Neutrophils (Bld) [#/Vol] 4.4 10*3/uL 2.0-7.7 [facility] Neutrophils/100 WBC (Bld) 48.7 % 47-70 [facility] Potassium [Moles/Vol] 4.7 mmol/L 3.5-5.1 [facility] Sodium [Moles/Vol] 133 mmol/L 136-145 [facility] WBC (Bld) [#/Vol] 9.1 10*3/uL 4.4-11.0 [facility] Blood erythrocytes count (nu mber/volume)Ordered By: Dr. Camp on 11-05-2022 RBC (Bld) [#/Vol] 4.28 10*6/uL 4.2-5.4 [facility] Blood hemoglobin measurement (mass/volume)Ordered By: Dr. Camp on 11-05-2022 Hemoglobin (Bld) [Mass/Vol] 12.1 g/dL 12.0-15.0 [facility] Blood lymphocytes/100 leukoc ytesOrdered By: Dr. Camp on 11-05-2022 Lymphocytes/100 WBC (Bld) 44.2 % 19-41 [facility] Blood monocytes/100 leukocyt esOrdered By: Dr. Camp on 11-05-2022 Monocytes/100 WBC (Bld) 4.2 % 0-10 [facility] Blood platelet mean volumeOr dered By: Dr. Camp on 11-05-2022 Platelet mean volume (Bld) [Entitic vol] 9.7 fL 6.2-12.0 [facility] Determination of erythrocyte mean corpuscular volume (MCV)Ordered By: Dr. Camp on 11-05-2022 MCV (RBC) [Entitic vol] 86.0 fL 81-99 [facility] Hematocrit Auto (Bld) [Volum e fraction]Ordered By: Dr. Camp on 11-05-2022 Hematocrit (Bld) [Volume fraction] 36.8 % 37-47 [facility] - Chemistry and C hemistry - challengeOrdered By: Dr. Camp on 11-05-2022 CO2 [Moles/Vol] 27.0 mmol/L 21.0-32.0 [facility] Urea nitrogen/Creatinine [Mass ratio] 18.8 mg/mg 10-20 [facility] - Hematology and Cell countsOrdered By: Dr. Camp on 11-05-2022 Erythrocyte distribution width (RBC) [Entitic vol] 42.0 fL 35.1-43.9 [facility] Erythrocyte distribution width (RBC) [Ratio] 13.3 % 11.6-14.6 [facility] Immature granulocytes/100 WBC (Bld) 0.400 % 0.0-0.9 [facility] Comment on above: IG% - Immature Granu locytes (promyelocytes, myelocytes and metamyelocytes) > 1% indicates that a LEFT SHIFT is Present. MCH (RBC) [Entitic mass] 28.3 pg 27.0-32.0 [facility] Nucleated RBC/100 WBC (Bld) [Ratio] 0.2 % 0-5 [facility] MCHC Auto (RBC) [Mass/Vol]Or dered By: Dr. Camp on 11-05-2022 MCHC (RBC) [Mass/Vol] 32.9 g/dL 32-36 [facility] No Panel InformationOrdered By: Dr. Camp on 11-05-2022 Troponin I High Sensitivity 8 pg/mL 3.0-54.0 [facility] Comment on above: Please Note: New Carolann t Units and Gender Specific Reference Ranges. For more information see Policy Stat Procedure [place] High Sensitivity Troponin (TNIH) and attachments. 8 pg/mL 3.0-54.0 [facility] Estimated Creatinine Clearance Calc 33.99 ml/min [facility] Estimated GFR (MDRD) Amer 55 mL/min >60 [facility] Comment on above: GFR Calc Estimated GFR (MDRD) Non-Af Amer 45 mL/min >60 [facility] Comment on above: Non- GFR Calc 28.3 pg 27.0-32.0 [facility] 13.3 % 11.6-14.6 [facility] 42.0 fl 35.1-43.9 [facility] 0.400 % 0.0-0.9 [facility] 0.2 % 0-5 [facility] 45 mL/min >60 [facility] 55 mL/min >60 [facility] 33.99 ml/min [facility] 18.8 RATIO 10-20 [facility] 27.0 mmol/L 21.0-32.0 [facility] Platelets bldOrdered By: Dr. Camp on 11-05-2022 Platelets (Bld) [#/Vol] 290 10*3/uL 150-450 [facility] Serum or plasma calcium tai urement (mass/volume)Ordered By: Dr. Camp on 11-05-2022 Calcium [Mass/Vol] 9.5 mg/dL 8.5-10.1 [facility] Serum or plasma creatinine m easurement (mass/volume)Ordered By: Dr. Camp on 11-05-2022 Creatinine [Mass/Vol] 1.28 mg/dL 0.55-1.02 [facility] Comment on above: The validity of the calculated GFR & GFRAA in patients over 70 years has not been determined. Clinical correlation is essential. Serum or plasma urea nitroge n measurement (mass/volume)Ordered By: Dr. Camp on 11-05-2022 Urea nitrogen [Mass/Vol] 24 mg/dL 7-18 [facility] Thin prep Papanicolaou smear with manual screeningOrdered By: Dr. Camp on 11-05-2022 Thin prep Papanicolaou smear with manual screening 7 5-15 [facility] Basophil percentageOrdered B y: Lizet Linares on 10-30-2022 Basophil percentage 359 mg/dL 74-106 [facility] Basophil percentage 134 mmol/L 136-145 [facility] Basophil percentage 4.2 mmol/L 3.5-5.1 [facility] Basophil percentage 100 mmol/L 98-107 [facility] Chloride [Moles/Vol] 100 mmol/L 98-107 [facility] Glucose [Mass/Vol] 359 mg/dL 74-106 [facility] Comment on above: Glucose result great er than or equal to 200 mg/dLsuggests DIABETES MELLITUS per A.D.A. criteria. Potassium [Moles/Vol] 4.2 mmol/L 3.5-5.1 [facility] Sodium [Moles/Vol] 134 mmol/L 136-145 [facility] - Chemistry and C hemistry - challengeOrdered By: Lizet Linares on 10-30-2022 CO2 [Moles/Vol] 28.0 mmol/L 21.0-32.0 [facility] Urea nitrogen/Creatinine [Mass ratio] 23.1 mg/mg 10-20 [facility] No Panel InformationOrdered By: Lizet Linares on 10-30-2022 Estimated GFR (MDRD) Amer 54 mL/min >60 [facility] Comment on above: GFR Calc Estimated GFR (MDRD) Non-Af Amer 45 mL/min >60 [facility] Comment on above: Non- GFR Calc 45 mL/min >60 [facility] 54 mL/min >60 [facility] 23.1 RATIO 10-20 [facility] 28.0 mmol/L 21.0-32.0 [facility] Serum or plasma calcium tai urement (mass/volume)Ordered By: Lizet Linares on 10-30-2022 Calcium [Mass/Vol] 8.9 mg/dL 8.5-10.1 [facility] Serum or plasma creatinine m easurement (mass/volume)Ordered By: Lizet Linares on 10-30-2022 Creatinine [Mass/Vol] 1.30 mg/dL 0.55-1.02 [facility] Comment on above: The validity of the calculated GFR & GFRAA in patients over 70 years has not been determined. Clinical correlation is essential. Serum or plasma urea nitroge n measurement (mass/volume)Ordered By: Lizet Linares on 10-30-2022 Urea nitrogen [Mass/Vol] 30 mg/dL 7-18 [facility] Thin prep Papanicolaou smear with manual screeningOrdered By: Lizet Linares on 10-30-2022 Thin prep Papanicolaou smear with manual screening 6 5-15 [facility] Basophil percentageOrdered B y: Lizet Linares on 10-27-2022 Basophil percentage 295 mg/dL 74-106 [facility] Basophil percentage 134 mmol/L 136-145 [facility] Basophil percentage 4.3 mmol/L 3.5-5.1 [facility] Basophil percentage 100 mmol/L 98-107 [facility] Basophils (Bld) [#/Vol] 7.7 10*3/uL 4.4-11.0 [facility] Chloride [Moles/Vol] 100 mmol/L 98-107 [facility] Glucose [Mass/Vol] 295 mg/dL 74-106 [facility] Comment on above: Glucose result great er than or equal to 200 mg/dLsuggests DIABETES MELLITUS per A.D.A. criteria. Potassium [Moles/Vol] 4.3 mmol/L 3.5-5.1 [facility] Sodium [Moles/Vol] 134 mmol/L 136-145 [facility] WBC (Bld) [#/Vol] 7.7 10*3/uL 4.4-11.0 [facility] Blood erythrocytes count (nu mber/volume)Ordered By: Lizet Linares on 10-27-2022 RBC (Bld) [#/Vol] 4.02 10*6/uL 4.2-5.4 [facility] Blood hemoglobin measurement (mass/volume)Ordered By: Lizet Linares on 10-27-2022 Hemoglobin (Bld) [Mass/Vol] 11.4 g/dL 12.0-15.0 [facility] Blood platelet mean volumeOr dered By: Lizet Linares on 10-27-2022 Platelet mean volume (Bld) [Entitic vol] 10.4 fL 6.2-12.0 [facility] Determination of erythrocyte mean corpuscular volume (MCV)Ordered By: Lizet Linares on 10-27-2022 MCV (RBC) [Entitic vol] 88.1 fL 81-99 [facility] Hematocrit Auto (Bld) [Volum e fraction]Ordered By: Lizet Linares on 10-27-2022 Hematocrit (Bld) [Volume fraction] 35.4 % 37-47 [facility] - Chemistry and C hemistry - challengeOrdered By: Lizet Linares on 10-27-2022 CO2 [Moles/Vol] 29.0 mmol/L 21.0-32.0 [facility] Urea nitrogen/Creatinine [Mass ratio] 24.8 mg/mg 10-20 [facility] - Hematology and Cell countsOrdered By: Lizet Linares on 10-27-2022 Erythrocyte distribution width (RBC) [Entitic vol] 44.1 fL 35.1-43.9 [facility] Erythrocyte distribution width (RBC) [Ratio] 13.7 % 11.6-14.6 [facility] MCH (RBC) [Entitic mass] [facility]4 [facility]/Vol]Or dered By: Lizet Linares on 10-27-2022 MCHC (RBC) [Mass/Vol] 32.2 g/dL 32-36 [facility] No Panel InformationOrdered By: Lizet Linares on 10-27-2022 Estimated GFR (MDRD) Amer 61 mL/min >60 [facility] Comment on above: GFR Calc Estimated GFR (MDRD) Non-Af Amer 50 mL/min >60 [facility] Comment on above: Non- GFR Calc 28.4 pg 27.0-32.0 [facility] 13.7 % 11.6-14.6 [facility] 44.1 fl 35.1-43.9 [facility] 50 mL/min >60 [facility] 61 mL/min >60 [facility] 24.8 RATIO 10-20 [facility] 29.0 mmol/L 21.0-32.0 [facility] Platelets bldOrdered By: Bart Linares on 10-27-2022 Platelets (Bld) [#/Vol] 299 10*3/uL 150-450 [facility] Serum or plasma calcium tai urement (mass/volume)Ordered By: Lizet Linares on 10-27-2022 Calcium [Mass/Vol] 9.0 mg/dL 8.5-10.1 [facility] Serum or plasma creatinine m easurement (mass/volume)Ordered By: Lizet Linares on 10-27-2022 Creatinine [Mass/Vol] 1.17 mg/dL 0.55-1.02 [facility] Comment on above: The validity of the calculated GFR & GFRAA in patients over 70 years has not been determined. Clinical correlation is essential. Serum or plasma urea nitroge n measurement (mass/volume)Ordered By: Lizet Linares on 10-27-2022 Urea nitrogen [Mass/Vol] 29 mg/dL 7-18 [facility] Thin prep Papanicolaou smear with manual screeningOrdered By: Lizet Linares on 10-27-2022 Thin prep Papanicolaou smear with manual screening 5 5-15 [facility] Basophil percentageOrdered B y: Lizet Linares on 10-13-2022 Basophil percentage 332 mg/dL 74-106 [facility] Basophil percentage 134 mmol/L 136-145 [facility] Basophil percentage 4.4 mmol/L 3.5-5.1 [facility] Basophil percentage 96 mmol/L 98-107 [facility] Basophils (Bld) [#/Vol] 6.8 10*3/uL 4.4-11.0 [facility] Chloride [Moles/Vol] 96 mmol/L 98-107 [facility] Glucose [Mass/Vol] 332 mg/dL 74-106 [facility] Comment on above: Glucose result great er than or equal to 200 mg/dLsuggests DIABETES MELLITUS per A.D.A. criteria. Potassium [Moles/Vol] 4.4 mmol/L 3.5-5.1 [facility] Sodium [Moles/Vol] 134 mmol/L 136-145 [facility] WBC (Bld) [#/Vol] 6.8 10*3/uL 4.4-11.0 [facility] Blood erythrocytes count (nu mber/volume)Ordered By: Lizet Linares on 10-13-2022 RBC (Bld) [#/Vol] 4.15 10*6/uL 4.2-5.4 [facility] Blood hemoglobin measurement (mass/volume)Ordered By: Lizet Linares on 10-13-2022 Hemoglobin (Bld) [Mass/Vol] 11.8 g/dL 12.0-15.0 [facility] Blood platelet mean volumeOr dered By: Lizet Linares on 10-13-2022 Platelet mean volume (Bld) [Entitic vol] 10.0 fL 6.2-12.0 [facility] Determination of erythrocyte mean corpuscular volume (MCV)Ordered By: Lizet Linares on 10-13-2022 MCV (RBC) [Entitic vol] 87.5 fL 81-99 [facility] Hematocrit Auto (Bld) [Volum e fraction]Ordered By: Lizet Linares on 10-13-2022 Hematocrit (Bld) [Volume fraction] 36.3 % 37-47 [facility] - Chemistry and C hemistry - challengeOrdered By: Lizet Linares on 10-13-2022 CO2 [Moles/Vol] 29.0 mmol/L 21.0-32.0 [facility] Urea nitrogen/Creatinine [Mass ratio] 15.2 mg/mg 10- [facility] - Hematology and Cell countsOrdered By: Lizet Linares on 10-13-2022 Erythrocyte distribution width (RBC) [Entitic vol] 43.6 fL 35.1-43.9 [facility] Erythrocyte distribution width (RBC) [Ratio] 13.5 % 11.6-14.6 [facility] MCH (RBC) [Entitic mass] 28.4 pg 27.0-32.0 [facility] MCHC Auto (RBC) [Mass/Vol]Or dered By: Lizet Linares on 10-13-2022 MCHC (RBC) [Mass/Vol] 32.5 g/dL 32-36 [facility] No Panel InformationOrdered By: Lizet Linares on 10-13-2022 Estimated GFR (MDRD) Amer 50 mL/min >60 [facility] Comment on above: GFR Calc Estimated GFR (MDRD) Non-Af Amer 42 mL/min >60 [facility] Comment on above: Non- GFR Calc 28.4 pg 27.0-32.0 [facility] 13.5 % 11.6-14.6 [facility] 43.6 fl 35.1-43.9 [facility] 42 mL/min >60 [facility] 50 mL/min >60 [facility] 15.2 RATIO 08-13 [facility] 29.0 mmol/L 21.0-32.0 [facility] Platelets bldOrdered By: Bart Linares on 10-13-2022 Platelets (Bld) [#/Vol] 274 10*3/uL 150-450 [facility] Serum or plasma calcium tai urement (mass/volume)Ordered By: Lizet Linares on 10-13-2022 Calcium [Mass/Vol] 9.0 mg/dL 8.5-10.1 [facility] Serum or plasma creatinine m easurement (mass/volume)Ordered By: Lizet Linares on 10-13-2022 Creatinine [Mass/Vol] 1.38 mg/dL 0.55-1.02 [facility] Comment on above: The validity of the calculated GFR & GFRAA in patients over 70 years has not been determined. Clinical correlation is essential. Serum or plasma urea nitroge n measurement (mass/volume)Ordered By: Lizet Linares on 10-13-2022 Urea nitrogen [Mass/Vol] 21 mg/dL - [facility] Thin prep Papanicolaou smear with manual screeningOrdered By: Lizet Linares on 10-13-2022 Thin prep Papanicolaou smear with manual screening 9 - [facility] Culture, urineOrdered By: Rae Hamilton on 10-11-2022 Bacteria identified Cx Nom (U) Culture exhibits no growth. [facility] Absolute lymphocyte countOrd ered By: Tip Hamilton on 10-09-2022 Lymphocytes Auto (Unsp spec) [#/Vol] 4.14 10*3/uL 0.83-4.51 [facility] Basophil percentageOrdered B y: Tip Hamilton on 10-09-2022 Basophil percentage 25-50 SEEN /hpf 0-5 [facility] Basophil percentage 272 mg/dL 74-106 [facility] Basophil percentage 6.9 g/dL 6.4-8.2 [facility] Basophil percentage 0.30 mg/dL 0.20-1.00 [facility] Basophil percentage 134 mmol/L 136-145 [facility] Basophil percentage 4.8 mmol/L 3.5-5.1 [facility] Basophil percentage 100 mmol/L 98-107 [facility] Basophils (Bld) [#/Vol] 9.9 10*3/uL 4.4-11.0 [facility] Basophils (Bld) [#/Vol] 5.0 10*3/uL 2.0-7.7 [facility] Basophils/100 WBC (Bld) 0.7 % 0-1 [facility] Basophils/100 WBC (Bld) 50.3 % 47-70 [facility] Basophils/100 WBC (Bld) 1.3 % 0-5 [facility] Bilirubin [Mass/Vol] 0.30 mg/dL 0.20-1.00 [facility] Comment on above: For patients on eltr ombopag therapy, use of Dimension [place] TBIL is not recommended. Chloride [Moles/Vol] 100 mmol/L 98-107 [facility] Eosinophils/100 WBC (Bld) 1.3 % 0-5 [facility] Glucose [Mass/Vol] 272 mg/dL 74-106 [facility] Comment on above: Glucose result great er than or equal to 200 mg/dLsuggests DIABETES MELLITUS per A.D.A. criteria. Neutrophils (Bld) [#/Vol] 5.0 10*3/uL 2.0-7.7 [facility] Neutrophils/100 WBC (Bld) 50.3 % 47-70 [facility] Potassium [Moles/Vol] 4.8 mmol/L 3.5-5.1 [facility] Protein [Mass/Vol] 6.9 g/dL 6.4-8.2 [facility] Sodium [Moles/Vol] 134 mmol/L 136-145 [facility] WBC (Bld) [#/Vol] 9.9 10*3/uL 4.4-11.0 [facility] Bilirubin Test strip Ql (U)O rdered By: Tip Hamilton on 10-09-2022 Bilirubin Ql (U) Negative Negative [facility] Blood erythrocytes count (nu mber/volume)Ordered By: Tip Hamilton on 10-09-2022 RBC (Bld) [#/Vol] 4.11 10*6/uL 4.2-5.4 [facility] Blood hemoglobin measurement (mass/volume)Ordered By: Tip Hamilton on 10-09-2022 Hemoglobin (Bld) [Mass/Vol] 11.5 g/dL 12.0-15.0 [facility] Blood lymphocytes/100 leukoc ytesOrdered By: Tip Hamilton on 10-09-2022 Lymphocytes/100 WBC (Bld) 41.9 % 19-41 [facility] Blood monocytes/100 leukocyt esOrdered By: Tip Hamilton on 10-09-2022 Monocytes/100 WBC (Bld) 5.5 % 0-10 [facility] Blood platelet mean volumeOr dered By: Tip Hamilton on 10-09-2022 Platelet mean volume (Bld) [Entitic vol] 9.8 fL 6.2-12.0 [facility] Determination of erythrocyte mean corpuscular volume (MCV)Ordered By: Tip Hamilton on 10-09-2022 MCV (RBC) [Entitic vol] 86.9 fL 81-99 [facility] Direct bilirubinOrdered By: Tip Hamilton on 10-09-2022 Bilirubin.direct [Mass/Vol] 0.11 mg/dL 0.00-0.30 [facility] Hematocrit Auto (Bld) [Volum e fraction]Ordered By: Tip Hamilton on 10-09-2022 Hematocrit (Bld) [Volume fraction] 35.7 % 37-47 [facility] Ketones Test strip Ql (U)Ord ered By: Tip Hamilton on 10-09-2022 Ketones Ql (U) Negative Negative [facility] - Chemistry and C hemistry - challengeOrdered By: Tip Hamilton on 10-09-2022 ALP [Catalytic activity/Vol] 69 U/L 45-117 [facility] ALT [Catalytic activity/Vol] 25 U/L 13-56 [facility] CO2 [Moles/Vol] 29.0 mmol/L 21.0-32.0 [facility] Globulin (S) [Mass/Vol] 3.8 g/dL 2.2-4.2 [facility] Lipase [Catalytic activity/Vol] 89 U/L 73-393 [facility] Urea nitrogen/Creatinine [Mass ratio] 21.0 mg/mg 10-20 [facility] - Hematology and Cell countsOrdered By: Tip Hamilton on 10-09-2022 Erythrocyte distribution width (RBC) [Entitic vol] 44.0 fL 35.1-43.9 [facility] Erythrocyte distribution width (RBC) [Ratio] 13.9 % 11.6-14.6 [facility] Immature granulocytes/100 WBC (Bld) 0.300 % 0.0-0.9 [facility] Comment on above: IG% - Immature Granu locytes (promyelocytes, myelocytes and metamyelocytes) > 1% indicates that a LEFT SHIFT is Present. MCH (RBC) [Entitic mass] 28.0 pg 27.0-32.0 [facility] Nucleated RBC/100 WBC (Bld) [Ratio] 0 % 0-5 [facility] MCHC Auto (RBC) [Mass/Vol]Or dered By: Tip Hamilton on 10-09-2022 MCHC (RBC) [Mass/Vol] 32.2 g/dL 32-36 [facility] Mucus LM Ql (Urine sed)Order ed By: Tip Hamilton on 10-09-2022 Mucus Ql (Urine sed) 0 SEEN /hpf [facility] Nitrite Test strip Ql (U)Ord ered By: Tip Hamilton on 10-09-2022 Nitrite Ql (U) Negative Negative [facility] No Panel InformationOrdered By: Tip Hamilton on 10-09-2022 Estimated Creatinine Clearance Calc 35.09 ml/min [facility] Estimated GFR (MDRD) Amer 57 mL/min >60 [facility] Comment on above: GFR Calc Estimated GFR (MDRD) Non-Af Amer 47 mL/min >60 [facility] Comment on above: Non- GFR Calc 28.0 pg 27.0-32.0 [facility] 13.9 % 11.6-14.6 [facility] 44.0 fl 35.1-43.9 [facility] 0.300 % 0.0-0.9 [facility] 0 % 0-5 [facility] 47 mL/min >60 [facility] 57 mL/min >60 [facility] 35.09 ml/min [facility] 21.0 RATIO 10-20 [facility] 3.8 g/dL 2.2-4.2 [facility] 89 U/L 73-393 [facility] 69 U/L 45-117 [facility] 25 U/L 13-56 [facility] 29.0 mmol/L 21.0-32.0 [facility] Platelets bldOrdered By: Kali Hamilton on 10-09-2022 Platelets (Bld) [#/Vol] 286 10*3/uL 150-450 [facility] Protein Test strip Ql (U)Ord ered By: Tip Hamilton on 10-09-2022 Protein Ql (U) 15 mg/dl Negative [facility] Serum or plasma albumin tai urement (mass/volume)Ordered By: Tip Hamilton on 10-09-2022 Albumin [Mass/Vol] 3.1 g/dL 3.2-5.0 [facility] Serum or plasma calcium tai urement (mass/volume)Ordered By: Tip Hamilton on 10-09-2022 Calcium [Mass/Vol] 8.8 mg/dL 8.5-10.1 [facility] Serum or plasma creatinine m easurement (mass/volume)Ordered By: Tip Hamilton on 10-09-2022 Creatinine [Mass/Vol] 1.24 mg/dL 0.55-1.02 [facility] Comment on above: The validity of the calculated GFR & GFRAA in patients over 70 years has not been determined. Clinical correlation is essential. Serum or plasma urea nitroge n measurement (mass/volume)Ordered By: Tip Hamilton on 10-09-2022 Urea nitrogen [Mass/Vol] 26 mg/dL 7-18 [facility] Squamous epithelial cells de tection in urine sediment by light microscopyOrdered By: Tip Hamilton on 10-09-2022 Epithelial cells.squamous LM Ql (Urine sed) 0-5 SEEN /hpf 5-10 [facility] Thin prep Papanicolaou smear with manual screeningOrdered By: Tip Hamilton on 10-09-2022 Thin prep Papanicolaou smear with manual screening 17 U/L 15-37 [facility] Thin prep Papanicolaou smear with manual screening 5 5-15 [facility] Urine blood detectionOrdered By: Tip Hamilton on 10-09-2022 RBC Ql (U) 10 /ul Negative [facility] RBC Ql (U) 0 SEEN /hpf 0-5 [facility] Urine clarityOrdered By: Kali Hamilton on 10-09-2022 Clarity (U) Sl. Cloudy Clear [facility] Urine color determinationOrd ered By: Tip Hamilton on 10-09-2022 Color (U) Yellow Yellow [facility] Urine glucose detectionOrder ed By: Tip Hamilton on 10-09-2022 Glucose Ql (U) 100 mg/dl Normal [facility] Urine leukocyte esterase det ection by dipstickOrdered By: Tip Hamilton on 10-09-2022 Leukocyte esterase Test strip Ql (U) 500 /ul Negative [facility] Urine pHOrdered By: Tip gonzalez on 10-09-2022 pH (U) 6.5 [pH] 5.0 - 8.0 [facility] Urine sediment bacteria coun t by microscopy (number/high power field)Ordered By: Tip Hamilton on 10-09-2022 Bacteria LM.HPF (Urine sed) [#/Area] 4 /[HPF] None Seen [facility] Urine specific gravity measu rementOrdered By: Tip Hamilton on 10-09-2022 Specific gravity (U) [Rel density] 1.010 1.002-1.03 0 [facility] Urobilinogen Auto test strip Ql (U)Ordered By: Tip Hamilton on 10-09-2022 Urobilinogen Ql (U) Normal mg/dl Normal [facility] Basophil percentageOrdered B y: Ganesh Garcia on 09-29-2022 Basophil percentage 426 mg/dL 74-106 [facility] Basophil percentage 132 mmol/L 136-145 [facility] Basophil percentage 4.1 mmol/L 3.5-5.1 [facility] Basophil percentage 98 mmol/L 98-107 [facility] Basophils (Bld) [#/Vol] 6.8 10*3/uL 4.4-11.0 [facility] Chloride [Moles/Vol] 98 mmol/L 98-107 [facility] Glucose [Mass/Vol] 426 mg/dL 74-106 [facility] Comment on above: Glucose result great er than or equal to 200 mg/dLsuggests DIABETES MELLITUS per A.D.A. criteria. Potassium [Moles/Vol] 4.1 mmol/L 3.5-5.1 [facility] Sodium [Moles/Vol] 132 mmol/L 136-145 [facility] WBC (Bld) [#/Vol] 6.8 10*3/uL 4.4-11.0 [facility] Blood erythrocytes count (nu mber/volume)Ordered By: Ganesh Garcia on 09-29-2022 RBC (Bld) [#/Vol] 4.11 10*6/uL 4.2-5.4 [facility] Blood hemoglobin measurement (mass/volume)Ordered By: Ganesh Garcia on 09-29-2022 Hemoglobin (Bld) [Mass/Vol] 11.5 g/dL 12.0-15.0 [facility] Blood platelet mean volumeOr dered By: Ganesh Garcia on 09-29-2022 Platelet mean volume (Bld) [Entitic vol] 10.2 fL 6.2-12.0 [facility] Determination of erythrocyte mean corpuscular volume (MCV)Ordered By: Ganesh Garcia on 09-29-2022 MCV (RBC) [Entitic vol] 85.9 fL 81-99 [facility] Hematocrit Auto (Bld) [Volum e fraction]Ordered By: Ganesh Garcia on 09-29-2022 Hematocrit (Bld) [Volume fraction] 35.3 % 37-47 [facility] - Chemistry and C hemistry - challengeOrdered By: Ganesh Garcia on 09-29-2022 CO2 [Moles/Vol] 27.0 mmol/L 21.0-32.0 [facility] Urea nitrogen/Creatinine [Mass ratio] 21.9 mg/mg 10-20 [facility] - Hematology and Cell countsOrdered By: Ganesh Garcia on 09-29-2022 Erythrocyte distribution width (RBC) [Entitic vol] 42.8 fL 35.1-43.9 [facility] Erythrocyte distribution width (RBC) [Ratio] 13.8 % 11.6-14.6 [facility] MCH (RBC) [Entitic mass] 28.0 pg 27.0-32.0 [facility] MCHC Auto (RBC) [Mass/Vol]Or dered By: Ganesh Garcia on 09-29-2022 MCHC (RBC) [Mass/Vol] 32.6 g/dL 32-36 [facility] No Panel InformationOrdered By: Ganesh Garcia on 09-29-2022 Estimated GFR (MDRD) Amer 63 mL/min >60 [facility] Comment on above: GFR Calc Estimated GFR (MDRD) Non-Af Amer 52 mL/min >60 [facility] Comment on above: Non- GFR Calc 28.0 pg 27.0-32.0 [facility] 13.8 % 11.6-14.6 [facility] 42.8 fl 35.1-43.9 [facility] 52 mL/min >60 [facility] 63 mL/min >60 [facility] 21.9 RATIO 10-20 [facility] 27.0 mmol/L 21.0-32.0 [facility] Platelets bldOrdered By: Robert Garcia on 09-29-2022 Platelets (Bld) [#/Vol] 289 10*3/uL 150-450 [facility] Serum or plasma calcium tai urement (mass/volume)Ordered By: Ganesh Garcia on 09-29-2022 Calcium [Mass/Vol] 9.0 mg/dL 8.5-10.1 [facility] Serum or plasma creatinine m easurement (mass/volume)Ordered By: Ganesh Garcia on 09-29-2022 Creatinine [Mass/Vol] 1.14 mg/dL 0.55-1.02 [facility] Comment on above: The validity of the calculated GFR & GFRAA in patients over 70 years has not been determined. Clinical correlation is essential. Serum or plasma urea nitroge n measurement (mass/volume)Ordered By: Ganesh Garcia on 09-29-2022 Urea nitrogen [Mass/Vol] 25 mg/dL 7-18 [facility] Thin prep Papanicolaou smear with manual screeningOrdered By: Ganesh Garcia on 09-29-2022 Thin prep Papanicolaou smear with manual screening 7 5-15 [facility] Basophil percentageOrdered B y: Ganesh Garcia on 09-15-2022 Basophil percentage 258 mg/dL 74-106 [facility] Basophil percentage 134 mmol/L 136-145 [facility] Basophil percentage 4.1 mmol/L 3.5-5.1 [facility] Basophil percentage 99 mmol/L 98-107 [facility] Basophils (Bld) [#/Vol] 7.0 10*3/uL 4.4-11.0 [facility] Chloride [Moles/Vol] 99 mmol/L 98-107 [facility] Glucose [Mass/Vol] 258 mg/dL 74-106 [facility] Comment on above: Glucose result great er than or equal to 200 mg/dLsuggests DIABETES MELLITUS per A.D.A. criteria. Potassium [Moles/Vol] 4.1 mmol/L 3.5-5.1 [facility] Sodium [Moles/Vol] 134 mmol/L 136-145 [facility] WBC (Bld) [#/Vol] 7.0 10*3/uL 4.4-11.0 [facility] Blood erythrocytes count (nu mber/volume)Ordered By: Ganesh Garcia on 09-15-2022 RBC (Bld) [#/Vol] 3.71 10*6/uL 4.2-5.4 [facility] Blood hemoglobin measurement (mass/volume)Ordered By: Ganesh Garcia on 09-15-2022 Hemoglobin (Bld) [Mass/Vol] 10.6 g/dL 12.0-15.0 [facility] Blood platelet mean volumeOr dered By: Ganesh Garcia on 09-15-2022 Platelet mean volume (Bld) [Entitic vol] 10.1 fL 6.2-12.0 [facility] Determination of erythrocyte mean corpuscular volume (MCV)Ordered By: Ganesh Garcia on 09-15-2022 MCV (RBC) [Entitic vol] 84.9 fL 81-99 [facility] Hematocrit Auto (Bld) [Volum e fraction]Ordered By: Ganesh Garcia on 09-15-2022 Hematocrit (Bld) [Volume fraction] 31.5 % 37-47 [facility] - Chemistry and C hemistry - challengeOrdered By: Ganesh Garcia on 09-15-2022 CO2 [Moles/Vol] 26.0 mmol/L 21.0-32.0 [facility] Urea nitrogen/Creatinine [Mass ratio] 22.8 mg/mg 10-20 [facility] - Hematology and Cell countsOrdered By: Ganesh Garcia on 09-15-2022 Erythrocyte distribution width (RBC) [Entitic vol] 43.3 fL 35.1-43.9 [facility] Erythrocyte distribution width (RBC) [Ratio] 14.0 % 11.6-14.6 [facility] MCH (RBC) [Entitic mass] 28.6 pg 27.0-32.0 [facility] MCHC Auto (RBC) [Mass/Vol]Or dered By: Ganesh Garcia on 09-15-2022 MCHC (RBC) [Mass/Vol] 33.7 g/dL 32-36 [facility] No Panel InformationOrdered By: Ganesh Garcia on 09-15-2022 Estimated GFR (MDRD) Amer 72 mL/min >60 [facility] Comment on above: GFR Calc Estimated GFR (MDRD) Non-Af Amer 60 mL/min >60 [facility] Comment on above: Non- GFR Calc 28.6 pg 27.0-32.0 [facility] 14.0 % 11.6-14.6 [facility] 43.3 fl 35.1-43.9 [facility] 60 mL/min >60 [facility] 72 mL/min >60 [facility] 22.8 RATIO 10-20 [facility] 26.0 mmol/L 21.0-32.0 [facility] Platelets bldOrdered By: Robert Garcia on 09-15-2022 Platelets (Bld) [#/Vol] 258 10*3/uL 150-450 [facility] Serum or plasma calcium tai urement (mass/volume)Ordered By: Ganesh Garcia on 09-15-2022 Calcium [Mass/Vol] 8.6 mg/dL 8.5-10.1 [facility] Serum or plasma creatinine m easurement (mass/volume)Ordered By: Ganesh Garcia on 09-15-2022 Creatinine [Mass/Vol] 1.01 mg/dL 0.55-1.02 [facility] Comment on above: The validity of the calculated GFR & GFRAA in patients over 70 years has not been determined. Clinical correlation is essential. Serum or plasma urea nitroge n measurement (mass/volume)Ordered By: Ganesh Garcia on 09-15-2022 Urea nitrogen [Mass/Vol] 23 mg/dL 7-18 [facility] Thin prep Papanicolaou smear with manual screeningOrdered By: Ganesh Garcia on 09-15-2022 Thin prep Papanicolaou smear with manual screening 9 5-15 [facility] Basophil percentageOrdered B y: Ganesh Garcia on 09-11-2022 Basophil percentage 246 mg/dL 74-106 [facility] Basophil percentage 136 mmol/L 136-145 [facility] Basophil percentage 4.3 mmol/L 3.5-5.1 [facility] Basophil percentage 100 mmol/L 98-107 [facility] Basophils (Bld) [#/Vol] 7.5 10*3/uL 4.4-11.0 [facility] Chloride [Moles/Vol] 100 mmol/L 98-107 [facility] Glucose [Mass/Vol] 246 mg/dL 74-106 [facility] Comment on above: Glucose result great er than or equal to 200 mg/dLsuggests DIABETES MELLITUS per A.D.A. criteria. Potassium [Moles/Vol] 4.3 mmol/L 3.5-5.1 [facility] Sodium [Moles/Vol] 136 mmol/L 136-145 [facility] WBC (Bld) [#/Vol] 7.5 10*3/uL 4.4-11.0 [facility] Blood erythrocytes count (nu mber/volume)Ordered By: Ganesh Garcia on 09-11-2022 RBC (Bld) [#/Vol] 3.79 10*6/uL 4.2-5.4 [facility] Blood hemoglobin measurement (mass/volume)Ordered By: Ganesh Garcia on 09-11-2022 Hemoglobin (Bld) [Mass/Vol] 10.5 g/dL 12.0-15.0 [facility] Blood platelet mean volumeOr dered By: Ganesh Garcia on 09-11-2022 Platelet mean volume (Bld) [Entitic vol] 10.1 fL 6.2-12.0 [facility] Determination of erythrocyte mean corpuscular volume (MCV)Ordered By: Ganesh Garcia on 09-11-2022 MCV (RBC) [Entitic vol] 85.2 fL 81-99 [facility] Hematocrit Auto (Bld) [Volum e fraction]Ordered By: Ganesh Garcia on 09-11-2022 Hematocrit (Bld) [Volume fraction] 32.3 % 37-47 [facility] - Chemistry and C hemistry - challengeOrdered By: Ganesh Garcia on 09-11-2022 CO2 [Moles/Vol] 27.0 mmol/L 21.0-32.0 [facility] Natriuretic peptide B (Bld) [Mass/Vol] 18.5 pg/mL 0-100 [facility] Urea nitrogen/Creatinine [Mass ratio] 23.6 mg/mg 10-20 [facility] - Hematology and Cell countsOrdered By: Ganesh Garcia on 09-11-2022 Erythrocyte distribution width (RBC) [Entitic vol] 43.0 fL 35.1-43.9 [facility] Erythrocyte distribution width (RBC) [Ratio] 13.7 % 11.6-14.6 [facility] MCH (RBC) [Entitic mass] 27.7 pg 27.0-32.0 [facility] MCHC Auto (RBC) [Mass/Vol]Or dered By: Ganesh Garcia on 09-11-2022 MCHC (RBC) [Mass/Vol] 32.5 g/dL 32-36 [facility] No Panel InformationOrdered By: Ganesh Garcia on 09-11-2022 Estimated GFR (MDRD) Amer 65 mL/min >60 [facility] Comment on above: GFR Calc Estimated GFR (MDRD) Non-Af Amer 54 mL/min >60 [facility] Comment on above: Non- GFR Calc 27.7 pg 27.0-32.0 [facility] 13.7 % 11.6-14.6 [facility] 43.0 fl 35.1-43.9 [facility] 54 mL/min >60 [facility] 65 mL/min >60 [facility] 23.6 RATIO 10-20 [facility] 27.0 mmol/L 21.0-32.0 [facility] 18.5 pg/mL 0-100 [facility] Platelets bldOrdered By: Robert Garcia on 09-11-2022 Platelets (Bld) [#/Vol] 257 10*3/uL 150-450 [facility] Serum or plasma calcium tai urement (mass/volume)Ordered By: Ganesh Garcia on 09-11-2022 Calcium [Mass/Vol] 8.6 mg/dL 8.5-10.1 [facility] Serum or plasma creatinine m easurement (mass/volume)Ordered By: Ganesh Garcia on 09-11-2022 Creatinine [Mass/Vol] 1.10 mg/dL 0.55-1.02 [facility] Comment on above: The validity of the calculated GFR & GFRAA in patients over 70 years has not been determined. Clinical correlation is essential. Serum or plasma urea nitroge n measurement (mass/volume)Ordered By: Ganesh Garcia on 09-11-2022 Urea nitrogen [Mass/Vol] 26 mg/dL 7-18 [facility] Thin prep Papanicolaou smear with manual screeningOrdered By: Ganesh Garcia on 09-11-2022 Thin prep Papanicolaou smear with manual screening 9 5-15 [facility] Basophil percentageOrdered B y: Ganesh Garcia on 09-01-2022 Chloride [Moles/Vol] 101 mmol/L 98-107 [facility] Glucose [Mass/Vol] 255 mg/dL 74-106 [facility] Comment on above: Glucose result great er than or equal to 200 mg/dLsuggests DIABETES MELLITUS per A.D.A. criteria. Potassium [Moles/Vol] 4.1 mmol/L 3.5-5.1 [facility] Sodium [Moles/Vol] 135 mmol/L 136-145 [facility] WBC (Bld) [#/Vol] 7.0 10*3/uL 4.4-11.0 [facility] Blood erythrocytes count (nu mber/volume)Ordered By: Ganesh Garcia on 09-01-2022 RBC (Bld) [#/Vol] 3.93 10*6/uL 4.2-5.4 [facility] Blood hemoglobin measurement (mass/volume)Ordered By: Ganesh Garcia on 09-01-2022 Hemoglobin (Bld) [Mass/Vol] 10.9 g/dL 12.0-15.0 [facility] Blood platelet mean volumeOr dered By: Ganesh Garcia on 09-01-2022 Platelet mean volume (Bld) [Entitic vol] 9.9 fL 6.2-12.0 [facility] Determination of erythrocyte mean corpuscular volume (MCV)Ordered By: Ganesh Garcia on 09-01-2022 MCV (RBC) [Entitic vol] 84.7 fL 81-99 [facility] Hematocrit Auto (Bld) [Volum e fraction]Ordered By: Ganesh Garcia on 09-01-2022 Hematocrit (Bld) [Volume fraction] 33.3 % 37-47 [facility] - Chemistry and C hemistry - challengeOrdered By: Ganesh Garcia on 09-01-2022 CO2 [Moles/Vol] 27.0 mmol/L 21.0-32.0 [facility] Urea nitrogen/Creatinine [Mass ratio] 13.4 mg/mg 10-20 [facility] - Hematology and Cell countsOrdered By: Ganesh Garcia on 09-01-2022 Erythrocyte distribution width (RBC) [Entitic vol] 42.9 fL 35.1-43.9 [facility] Erythrocyte distribution width (RBC) [Ratio] 13.9 % 11.6-14.6 [facility] MCH (RBC) [Entitic mass] 27.7 pg 27.0-32.0 [facility] MCHC Auto (RBC) [Mass/Vol]Or dered By: Ganesh Garcia on 09-01-2022 MCHC (RBC) [Mass/Vol] 32.7 g/dL 32-36 [facility] No Panel InformationOrdered By: Ganesh Garcia on 09-01-2022 Estimated GFR (MDRD) Amer 60 mL/min >60 [facility] Comment on above: GFR Calc Estimated GFR (MDRD) Non-Af Amer 49 mL/min >60 [facility] Comment on above: Non- GFR Calc Platelets bldOrdered By: Robert Garcia on 09-01-2022 Platelets (Bld) [#/Vol] 328 10*3/uL 150-450 [facility] Serum or plasma calcium tai urement (mass/volume)Ordered By: Ganesh Garcia on 09-01-2022 Calcium [Mass/Vol] 9.1 mg/dL 8.5-10.1 [facility] Serum or plasma creatinine m easurement (mass/volume)Ordered By: Ganesh Garcia on 09-01-2022 Creatinine [Mass/Vol] 1.19 mg/dL 0.55-1.02 [facility] Comment on above: The validity of the calculated GFR & GFRAA in patients over 70 years has not been determined. Clinical correlation is essential. Serum or plasma urea nitroge n measurement (mass/volume)Ordered By: Ganesh Garcia on 09-01-2022 Urea nitrogen [Mass/Vol] 16 mg/dL 7-18 [facility] Thin prep Papanicolaou smear with manual screeningOrdered By: Ganesh Garcia on 09-01-2022 Thin prep Papanicolaou smear with manual screening 7 5-15 [facility] Absolute lymphocyte countOrd ered By: Dr. Govea on 08-24-2022 Lymphocytes Auto (Unsp spec) [#/Vol] 3.37 10*3/uL 0.83-4.51 [facility] Basophil percentageOrdered B y: Dr. Govea on 08-24-2022 Basophils/100 WBC (Bld) 0.6 % 0-1 [facility] Bilirubin [Mass/Vol] 0.40 mg/dL 0.20-1.00 [facility] Comment on above: For patients on eltr ombopag therapy, use of Dimension [place] TBIL is not recommended. Chloride [Moles/Vol] 97 mmol/L 98-107 [facility] Eosinophils/100 WBC (Bld) 1.6 % 0-5 [facility] Glucose [Mass/Vol] 235 mg/dL 74-106 [facility] Comment on above: Glucose result great er than or equal to 200 mg/dLsuggests DIABETES MELLITUS per A.D.A. criteria. Neutrophils (Bld) [#/Vol] 4.6 10*3/uL 2.0-7.7 [facility] Neutrophils/100 WBC (Bld) 53.6 % 47-70 [facility] Potassium [Moles/Vol] 4.4 mmol/L 3.5-5.1 [facility] Protein [Mass/Vol] 7.0 g/dL 6.4-8.2 [facility] Sodium [Moles/Vol] 134 mmol/L 136-145 [facility] WBC (Bld) [#/Vol] 8.6 10*3/uL 4.4-11.0 [facility] Blood erythrocytes count (nu mber/volume)Ordered By: Dr. Govea on 08-24-2022 RBC (Bld) [#/Vol] 4.30 10*6/uL 4.2-5.4 [facility] Blood hemoglobin measurement (mass/volume)Ordered By: Dr. Govea on 08-24-2022 Hemoglobin (Bld) [Mass/Vol] 12.0 g/dL 12.0-15.0 [facility] Blood lymphocytes/100 leukoc ytesOrdered By: Dr. Govea on 08-24-2022 Lymphocytes/100 WBC (Bld) 39.0 % 19-41 [facility] Blood monocytes/100 leukocyt esOrdered By: Dr. Govea on 08-24-2022 Monocytes/100 WBC (Bld) 5.0 % 0-10 [facility] Blood platelet mean volumeOr dered By: Dr. Govea on 08-24-2022 Platelet mean volume (Bld) [Entitic vol] 9.5 fL 6.2-12.0 [facility] Determination of erythrocyte mean corpuscular volume (MCV)Ordered By: Dr. Govea on 08-24-2022 MCV (RBC) [Entitic vol] 83.5 fL 81-99 [facility] Direct bilirubinOrdered By: Dr. Govea on 08-24-2022 Bilirubin.direct [Mass/Vol] 0.13 mg/dL 0.00-0.30 [facility] Hematocrit Auto (Bld) [Volum e fraction]Ordered By: Dr. Govea on 08-24-2022 Hematocrit (Bld) [Volume fraction] 35.9 % 37-47 [facility] - Chemistry and C hemistry - challengeOrdered By: Dr. Govea on 08-24-2022 ALP [Catalytic activity/Vol] 61 U/L 45-117 [facility] ALT [Catalytic activity/Vol] 23 U/L 13-56 [facility] CO2 [Moles/Vol] 28.0 mmol/L 21.0-32.0 [facility] Globulin (S) [Mass/Vol] 4.1 g/dL 2.2-4.2 [facility] Lipase [Catalytic activity/Vol] 92 U/L 73-393 [facility] Urea nitrogen/Creatinine [Mass ratio] 16.8 mg/mg 10-20 [facility] - Hematology and Cell countsOrdered By: Dr. Govea on 08-24-2022 Erythrocyte distribution width (RBC) [Entitic vol] 42.8 fL 35.1-43.9 [facility] Erythrocyte distribution width (RBC) [Ratio] 14.2 % 11.6-14.6 [facility] Immature granulocytes/100 WBC (Bld) 0.200 % 0.0-0.9 [facility] Comment on above: IG% - Immature Granu locytes (promyelocytes, myelocytes and metamyelocytes) > 1% indicates that a LEFT SHIFT is Present. MCH (RBC) [Entitic mass] 27.9 pg 27.0-32.0 [facility] Nucleated RBC/100 WBC (Bld) [Ratio] 0 % 0-5 [facility] MCHC Auto (RBC) [Mass/Vol]Or dered By: Dr. Govea on 08-24-2022 MCHC (RBC) [Mass/Vol] 33.4 g/dL 32-36 [facility] No Panel InformationOrdered By: Dr. Govea on 08-24-2022 Troponin I High Sensitivity 10 pg/mL 3.0-54.0 [facility] Comment on above: Please Note: New Carolann t Units and Gender Specific Reference Ranges. For more information see Policy Stat Procedure [place] High Sensitivity Troponin (TNIH) and attachments. D-Dimer Quantitative (PE/DVT) 0.67 FEU/ug/m 0.27-0.49 [facility] Comment on above: D-Dimer ELEVATED (>0 .49): Additional studies and clinicalassessments are indicated to conclude diagnosis of:Deep Vein Thrombosis (DVT) or Pulmonary Embolism (PE)CRITICAL VALUE VERIFIED. CALLED TO PAT CANTU08/24/22 [id number] Maurice Cast.RESULTS READ BACK BY SAME . Estimated Creatinine Clearance Calc 30.43 ml/min [facility] Estimated GFR (MDRD) Amer 48 mL/min >60 [facility] Comment on above: GFR Calc Estimated GFR (MDRD) Non-Af Amer 40 mL/min >60 [facility] Comment on above: Non- GFR Calc Platelets bldOrdered By: Dr. Govea on 08-24-2022 Platelets (Bld) [#/Vol] 344 10*3/uL 150-450 [facility] Serum or plasma albumin tai urement (mass/volume)Ordered By: Dr. Govea on 08-24-2022 Albumin [Mass/Vol] 2.9 g/dL 3.2-5.0 [facility] Serum or plasma calcium tai urement (mass/volume)Ordered By: Dr. Govea on 08-24-2022 Calcium [Mass/Vol] 8.8 mg/dL 8.5-10.1 [facility] Serum or plasma creatinine m easurement (mass/volume)Ordered By: Dr. Govea on 08-24-2022 Creatinine [Mass/Vol] 1.43 mg/dL 0.55-1.02 [facility] Comment on above: The validity of the calculated GFR & GFRAA in patients over 70 years has not been determined. Clinical correlation is essential. Serum or plasma urea nitroge n measurement (mass/volume)Ordered By: Dr. Govea on 08-24-2022 Urea nitrogen [Mass/Vol] 24 mg/dL 7-18 [facility] Thin prep Papanicolaou smear with manual screeningOrdered By: Dr. Govea on 08-24-2022 Thin prep Papanicolaou smear with manual screening 22 U/L 15-37 [facility] Thin prep Papanicolaou smear with manual screening 9 5-15 [facility] Basophil percentageOrdered B y: Ganesh Garcia on 08-18-2022 Chloride [Moles/Vol] 103 mmol/L 98-107 [facility] Glucose [Mass/Vol] 158 mg/dL 74-106 [facility] Comment on above: Fasting Glucose resu lt greater than or equal to 126 mg/dL suggests DIABETES MELLITUS per A.D.A. criteria. Potassium [Moles/Vol] 4.2 mmol/L 3.5-5.1 [facility] Sodium [Moles/Vol] 137 mmol/L 136-145 [facility] WBC (Bld) [#/Vol] 7.1 10*3/uL 4.4-11.0 [facility] Blood erythrocytes count (nu mber/volume)Ordered By: Ganesh Garcia on 08-18-2022 RBC (Bld) [#/Vol] 3.85 10*6/uL 4.2-5.4 [facility] Blood hemoglobin measurement (mass/volume)Ordered By: Ganesh Garcia on 08-18-2022 Hemoglobin (Bld) [Mass/Vol] 11.0 g/dL 12.0-15.0 [facility] Blood platelet mean volumeOr dered By: Ganesh Garcia on 08-18-2022 Platelet mean volume (Bld) [Entitic vol] 9.6 fL 6.2-12.0 [facility] Determination of erythrocyte mean corpuscular volume (MCV)Ordered By: Ganesh Garcia on 08-18-2022 MCV (RBC) [Entitic vol] 87.3 fL 81-99 [facility] Hematocrit Auto (Bld) [Volum e fraction]Ordered By: Ganesh Garcia on 08-18-2022 Hematocrit (Bld) [Volume fraction] 33.6 % 37-47 [facility] - Chemistry and C hemistry - challengeOrdered By: Ganesh Garcia on 08-18-2022 CO2 [Moles/Vol] 29.0 mmol/L 21.0-32.0 [facility] Urea nitrogen/Creatinine [Mass ratio] 21.4 mg/mg 10-20 [facility] - Hematology and Cell countsOrdered By: Ganesh Garcia on 08-18-2022 Erythrocyte distribution width (RBC) [Entitic vol] 45.0 fL 35.1-43.9 [facility] Erythrocyte distribution width (RBC) [Ratio] 14.1 % 11.6-14.6 [facility] MCH (RBC) [Entitic mass] 28.6 pg 27.0-32.0 [facility] MCHC Auto (RBC) [Mass/Vol]Or dered By: Ganesh Garcia on 08-18-2022 MCHC (RBC) [Mass/Vol] 32.7 g/dL 32-36 [facility] No Panel InformationOrdered By: Ganesh Garcia on 08-18-2022 Estimated GFR (MDRD) Amer 64 mL/min >60 [facility] Comment on above: GFR Calc Estimated GFR (MDRD) Non-Af Amer 53 mL/min >60 [facility] Comment on above: Non- GFR Calc Platelets bldOrdered By: Robert Garcia on 08-18-2022 Platelets (Bld) [#/Vol] 310 10*3/uL 150-450 [facility] Serum or plasma calcium tai urement (mass/volume)Ordered By: Ganesh Garcia on 08-18-2022 Calcium [Mass/Vol] 9.3 mg/dL 8.5-10.1 [facility] Serum or plasma creatinine m easurement (mass/volume)Ordered By: Ganesh Garcia on 08-18-2022 Creatinine [Mass/Vol] 1.12 mg/dL 0.55-1.02 [facility] Comment on above: The validity of the calculated GFR & GFRAA in patients over 70 years has not been determined. Clinical correlation is essential. Serum or plasma urea nitroge n measurement (mass/volume)Ordered By: Ganesh Garcia on 08-18-2022 Urea nitrogen [Mass/Vol] 24 mg/dL 7-18 [facility] Thin prep Papanicolaou smear with manual screeningOrdered By: Ganesh Garcia on 08-18-2022 Thin prep Papanicolaou smear with manual screening 5 5-15 [facility] Basophil percentageOrdered B y: Ganesh Garcia on 08-04-2022 Chloride [Moles/Vol] 102 mmol/L 98-107 [facility] Glucose [Mass/Vol] 215 mg/dL 74-106 [facility] Comment on above: Glucose result great er than or equal to 200 mg/dLsuggests DIABETES MELLITUS per A.D.A. criteria. Potassium [Moles/Vol] 4.1 mmol/L 3.5-5.1 [facility] Sodium [Moles/Vol] 137 mmol/L 136-145 [facility] WBC (Bld) [#/Vol] 6.8 10*3/uL 4.4-11.0 [facility] Blood erythrocytes count (nu mber/volume)Ordered By: Ganesh Garcia on 08-04-2022 RBC (Bld) [#/Vol] 3.88 10*6/uL 4.2-5.4 [facility] Blood hemoglobin measurement (mass/volume)Ordered By: Ganesh Garcia on 08-04-2022 Hemoglobin (Bld) [Mass/Vol] 10.8 g/dL 12.0-15.0 [facility] Blood platelet mean volumeOr dered By: Ganesh Garcia on 08-04-2022 Platelet mean volume (Bld) [Entitic vol] 9.9 fL 6.2-12.0 [facility] Determination of erythrocyte mean corpuscular volume (MCV)Ordered By: Ganesh Garcia on 08-04-2022 MCV (RBC) [Entitic vol] 87.9 fL 81-99 [facility] Hematocrit Auto (Bld) [Volum e fraction]Ordered By: Ganesh Garcia on 08-04-2022 Hematocrit (Bld) [Volume fraction] 34.1 % 37-47 [facility] - Chemistry and C hemistry - challengeOrdered By: Ganesh Garcia on 08-04-2022 CO2 [Moles/Vol] 28.0 mmol/L 21.0-32.0 [facility] Urea nitrogen/Creatinine [Mass ratio] 19.1 mg/mg 10-20 [facility] - Hematology and Cell countsOrdered By: Ganesh Garcia on 08-04-2022 Erythrocyte distribution width (RBC) [Entitic vol] 44.9 fL 35.1-43.9 [facility] Erythrocyte distribution width (RBC) [Ratio] 14.1 % 11.6-14.6 [facility] MCH (RBC) [Entitic mass] 27.8 pg 27.0-32.0 [facility] MCHC Auto (RBC) [Mass/Vol]Or dered By: Ganesh Garcia on 08-04-2022 MCHC (RBC) [Mass/Vol] 31.7 g/dL 32-36 [facility] No Panel InformationOrdered By: Ganesh Garcia on 08-04-2022 Estimated GFR (MDRD) Amer 74 mL/min >60 [facility] Comment on above: GFR Calc Estimated GFR (MDRD) Non-Af Amer 61 mL/min >60 [facility] Comment on above: Non- GFR Calc Platelets bldOrdered By: Robert Garcia on 08-04-2022 Platelets (Bld) [#/Vol] 319 10*3/uL 150-450 [facility] Serum or plasma calcium tai urement (mass/volume)Ordered By: Ganesh Garcia on 08-04-2022 Calcium [Mass/Vol] 8.9 mg/dL 8.5-10.1 [facility] Serum or plasma creatinine m easurement (mass/volume)Ordered By: Ganesh Garcia on 08-04-2022 Creatinine [Mass/Vol] 0.99 mg/dL 0.55-1.02 [facility] Comment on above: The validity of the calculated GFR & GFRAA in patients over 70 years has not been determined. Clinical correlation is essential. Serum or plasma urea nitroge n measurement (mass/volume)Ordered By: Ganesh Garcia on 08-04-2022 Urea nitrogen [Mass/Vol] 19 mg/dL 7-18 [facility] Thin prep Papanicolaou smear with manual screeningOrdered By: Ganesh Garcia on 08-04-2022 Thin prep Papanicolaou smear with manual screening 7 5-15 [facility] Basophil percentageon 2021 Chloride [Moles/Vol] 100 mmol/L 98-107 [facility] Work Phone: Cholesterol [Mass/Vol] 96 mg/dL <200 [facility] Work Phone: Comment on above: <200 mg/dL Desirable 200-240 mg/dL Borderline >240 mg/dL High Risk Glucose [Mass/Vol] 263 mg/dL 74-106 [facility] Work Phone: Comment on above: Glucose result great er than or equal to 200 mg/dLsuggests DIABETES MELLITUS per A.D.A. criteria. Potassium [Moles/Vol] 4.3 mmol/L 3.5-5.1 [facility] Work Phone: Sodium [Moles/Vol] 136 mmol/L 136-145 [facility] Work Phone: Triglyceride [Mass/Vol] 361 mg/dL <199 [facility] Work Phone: Comment on above: The drugs N-Acetylcy steine and Metamizole may falsely depress this assay.Serum Triglycerides Reference Interval Normal <150 mg/dL Borderline high 150 - 199 mg/dL High 200 - 499 mg/dL Very High > or = 500 mg/dL WBC (Bld) [#/Vol] 7.6 10*3/uL 4.4-11.0 [facility] Work Phone: Blood erythrocytes count (nu mber/volume)on 07-20-2022 RBC (Bld) [#/Vol] 3.77 10*6/uL 4.2-5.4 [facility] Work Phone: Blood hemoglobin measurement (mass/volume)on 07-20-2022 Hemoglobin (Bld) [Mass/Vol] 10.6 g/dL 12.0-15.0 [facility] Work Phone: Blood platelet mean volumeon 07-20-2022 Platelet mean volume (Bld) [Entitic vol] 10.0 fL 6.2-12.0 [facility] Work Phone: Determination of erythrocyte mean corpuscular volume (MCV)on 07-20-2022 MCV (RBC) [Entitic vol] 91.0 fL 81-99 [facility] Work Phone: Hematocrit Auto (Bld) [Volum e fraction]on 07-20-2022 Hematocrit (Bld) [Volume fraction] 34.3 % 37-47 [facility] Work Phone: Laboratory - Chemistry and C hemistry - challengeon 07-20-2022 CO2 [Moles/Vol] 27.0 mmol/L 21.0-32.0 [facility] Work Phone: Urea nitrogen/Creatinine [Mass ratio] 18.3 mg/mg 10-20 [facility] Work Phone: Laboratory - Hematology and Cell countson 07-20-2022 Erythrocyte distribution width (RBC) [Entitic vol] 44.6 fL 35.1-43.9 [facility] Work Phone: Erythrocyte distribution width (RBC) [Ratio] 13.5 % 11.6-14.6 [facility] Work Phone: MCH (RBC) [Entitic mass] 28.1 pg 27.0-32.0 [facility] Work Phone: MCHC Auto (RBC) [Mass/Vol]on 07-20-2022 MCHC (RBC) [Mass/Vol] 30.9 g/dL 32-36 [facility] Work Phone: No Panel Informationon 07-20 Estimated GFR (MDRD) Amer 70 mL/min >60 [facility] Work Phone: Comment on above: GFR Calc Estimated GFR (MDRD) Non-Af Amer 58 mL/min >60 [facility] Work Phone: Comment on above: Non- GFR Calc Platelets bldon 07-20-2022 Platelets (Bld) [#/Vol] 274 10*3/uL 150-450 [facility] Work Phone: Serum or plasma calcium tai urement (mass/volume)on 07-20-2022 Calcium [Mass/Vol] 8.7 mg/dL 8.5-10.1 [facility] Work Phone: Serum or plasma cholesterol in HDL measurement (mass/volume)on 07-20-2022 Cholesterol in HDL [Mass/Vol] 17 mg/dL >40 [facility] Work Phone: Comment on above: The drugs N-Acetylcy steine and Metamizole may falsely depress this assay. Reference Range HDL <40 mg/dL Low HDL Cholesterol HDL >or= 60 mg/dL High HDL Cholesterol Serum or plasma cholesterol in VLDL measurement (mass/volume)on 07-20-2022 Cholesterol in VLDL [Mass/Vol] 72 mg/dL 5-40 [facility] Work Phone: Serum or plasma creatinine m easurement (mass/volume)on 07-20-2022 Creatinine [Mass/Vol] 1.04 mg/dL 0.55-1.02 [facility] Work Phone: Comment on above: The validity of the calculated GFR & GFRAA in patients over 70 years has not been determined. Clinical correlation is essential. Serum or plasma low density lipoprotein (LDL) cholesterol measurement (mass/volume)on 07-20-2022 Cholesterol in LDL [Mass/Vol] 7 mg/dL 0-130 [facility] Work Phone: Serum or plasma urea nitroge n measurement (mass/volume)on 07-20-2022 Urea nitrogen [Mass/Vol] 19 mg/dL 7-18 [facility] Work Phone: Thin prep Papanicolaou smear with manual screeningon 07-20-2022 Thin prep Papanicolaou smear with manual screening 9 5-15 [facility] Work Phone: Basophil percentageon 2021 Basophil percentage 25-50 SEEN /hpf 0-5 [facility] Work Phone: Bilirubin Test strip Ql (U)o n 07-13-2022 Bilirubin Ql (U) Negative Negative [facility] Work Phone: Ketones Test strip Ql (U)on 07-13-2022 Ketones Ql (U) Negative Negative [facility] Work Phone: Mucus LM Ql (Urine sed)on Mucus Ql (Urine sed) 0 SEEN /hpf [facility] Work Phone: Nitrite Test strip Ql (U)on 07-13-2022 Nitrite Ql (U) Negative Negative [facility] Work Phone: Protein Test strip Ql (U)on 07-13-2022 Protein Ql (U) Negative Negative [facility] Work Phone: Squamous epithelial cells de tection in urine sediment by light microscopyon 07-13-2022 Epithelial cells.squamous LM Ql (Urine sed) 0-5 SEEN /hpf 5-10 [facility] Work Phone: Urine blood detectionon 06-25 RBC Ql (U) 10 /ul Negative [facility] Work Phone: RBC Ql (U) 0-5 SEEN /hpf 0-5 [facility] Work Phone: Urine clarityon 07-13-2022 Clarity (U) Sl. Cloudy Clear [facility] Work Phone: Urine color determinationon 07-13-2022 Color (U) Yellow Yellow [facility] Work Phone: Urine glucose detectionon Glucose Ql (U) 50 mg/dl Normal [facility] Work Phone: Urine leukocyte esterase det ection by dipstickon 07-13-2022 Leukocyte esterase Test strip Ql (U) 500 /ul Negative [facility] Work Phone: Urine pHon 07-13-2022 pH (U) 6.0 [pH] 5.0 - 8.0 [facility] Work Phone: Urine sediment bacteria coun t by microscopy (number/high power field)on 07-13-2022 Bacteria LM.HPF (Urine sed) [#/Area] 2 /[HPF] None Seen [facility] Work Phone: Urine specific gravity measu rementon 07-13-2022 Specific gravity (U) [Rel density] 1.010 1.002-1.03 0 [facility] Work Phone: Urobilinogen Auto test strip Ql (U)on 07-13-2022 Urobilinogen Ql (U) Normal mg/dl Normal [facility] Work Phone: Basophil percentageon 2021 Chloride [Moles/Vol] 101 mmol/L 98-107 [facility] Work Phone: Glucose [Mass/Vol] 240 mg/dL 74-106 [facility] Work Phone: Comment on above: Glucose result great er than or equal to 200 mg/dLsuggests DIABETES MELLITUS per A.D.A. criteria. Potassium [Moles/Vol] 3.9 mmol/L 3.5-5.1 [facility] Work Phone: Sodium [Moles/Vol] 136 mmol/L 136-145 [facility] Work Phone: WBC (Bld) [#/Vol] 7.8 10*3/uL 4.4-11.0 [facility] Work Phone: Blood erythrocytes count (nu mber/volume)on 07-07-2022 RBC (Bld) [#/Vol] 3.88 10*6/uL 4.2-5.4 [facility] Work Phone: Blood hemoglobin measurement (mass/volume)on 07-07-2022 Hemoglobin (Bld) [Mass/Vol] 11.1 g/dL 12.0-15.0 [facility] Work Phone: Blood platelet mean volumeon 07-07-2022 Platelet mean volume (Bld) [Entitic vol] 9.9 fL 6.2-12.0 [facility] Work Phone: Determination of erythrocyte mean corpuscular volume (MCV)on 07-07-2022 MCV (RBC) [Entitic vol] 89.4 fL 81-99 [facility] Work Phone: Hematocrit Auto (Bld) [Volum e fraction]on 07-07-2022 Hematocrit (Bld) [Volume fraction] 34.7 % 37-47 [facility] Work Phone: Laboratory - Chemistry and C hemistry - challengeon 07-07-2022 CO2 [Moles/Vol] 26.0 mmol/L 21.0-32.0 [facility] Work Phone: Urea nitrogen/Creatinine [Mass ratio] 18.7 mg/mg 10-20 [facility] Work Phone: Laboratory - Hematology and Cell countson 07-07-2022 Erythrocyte distribution width (RBC) [Entitic vol] 44.2 fL 35.1-43.9 [facility] Work Phone: Erythrocyte distribution width (RBC) [Ratio] 13.5 % 11.6-14.6 [facility] Work Phone: MCH (RBC) [Entitic mass] 28.6 pg 27.0-32.0 [facility] Work Phone: MCHC Auto (RBC) [Mass/Vol]on 07-07-2022 MCHC (RBC) [Mass/Vol] 32.0 g/dL 32-36 [facility] Work Phone: No Panel Informationon 07-07 Estimated GFR (MDRD) Amer 68 mL/min >60 [facility] Work Phone: Comment on above: GFR Calc Estimated GFR (MDRD) Non-Af Amer 56 mL/min >60 [facility] Work Phone: Comment on above: Non- GFR Calc Platelets bldon 07-07-2022 Platelets (Bld) [#/Vol] 310 10*3/uL 150-450 [facility] Work Phone: Serum or plasma calcium tai urement (mass/volume)on 07-07-2022 Calcium [Mass/Vol] 9.0 mg/dL 8.5-10.1 [facility] Work Phone: Serum or plasma creatinine m easurement (mass/volume)on 07-07-2022 Creatinine [Mass/Vol] 1.07 mg/dL 0.55-1.02 [facility] Work Phone: Comment on above: The validity of the calculated GFR & GFRAA in patients over 70 years has not been determined. Clinical correlation is essential. Serum or plasma urea nitroge n measurement (mass/volume)on 07-07-2022 Urea nitrogen [Mass/Vol] 20 mg/dL 7-18 [facility] Work Phone: Thin prep Papanicolaou smear with manual screeningon 07-07-2022 Thin prep Papanicolaou smear with manual screening 9 5-15 [facility] Work Phone: No Panel Informationon 07-03 Thyroid Stimulating Hormone (TSH) 1.98 uIU/mL 0.358-3.74 [facility] Work Phone: No Panel Informationon 07-01 Thyroid Stimulating Hormone (TSH) 1.82 uIU/mL 0.358-3.74 [facility] Work Phone: Whole blood hemoglobin A1c/t otal hemoglobin ratio (mass fraction)on 07-01-2022 HbA1c (Bld) [Mass fraction] 7.8 % 3.8-5.6 [facility] Work Phone: Comment on above: Normal < 5.7 % Predi abetic 5.7 - 6.4 % Diabetic >or= 6.5 % Please note range changes. Basophil percentageon 2021 Chloride [Moles/Vol] 99 mmol/L 98-107 [facility] Work Phone: Glucose [Mass/Vol] 193 mg/dL 74-106 [facility] Work Phone: Comment on above: Fasting Glucose resu lt greater than or equal to 126 mg/dL suggests DIABETES MELLITUS per A.D.A. criteria. Potassium [Moles/Vol] 4.1 mmol/L 3.5-5.1 [facility] Work [facility]: Sodium [Moles/Vol] 137 mmol/L 136-145 [facility] Work Phone: WBC (Bld) [#/Vol] 7.4 10*3/uL 4.4-11.0 [facility] Work Phone: Blood erythrocytes count (nu mber/volume)on 06-23-2022 RBC (Bld) [#/Vol] 3.60 10*6/uL 4.2-5.4 [facility]: Blood hemoglobin measurement (mass/volume)on 06-23-2022 Hemoglobin (Bld) [Mass/Vol] 10.6 g/dL 12.0-15.0 [facility] Work Phone: Blood platelet mean volumeon 06-23-2022 Platelet mean volume (Bld) [Entitic vol] 9.5 fL 6.2-12.0 [facility] Work Phone: Determination of erythrocyte mean corpuscular volume (MCV)on 06-23-2022 MCV (RBC) [Entitic vol] 89.7 fL 81-99 [facility] Work Phone: Hematocrit Auto (Bld) [Volum e fraction]on 06-23-2022 Hematocrit (Bld) [Volume fraction] 32.3 % 37-47 [facility] Work Phone: Laboratory - Chemistry and C hemistry - challengeon 06-23-2022 CO2 [Moles/Vol] 28.0 mmol/L 21.0-32.0 [facility] Work Phone: Urea nitrogen/Creatinine [Mass ratio] 19.3 mg/mg 10-20 [facility] Work Phone: Laboratory - Hematology and Cell countson 06-23-2022 Erythrocyte distribution width (RBC) [Entitic vol] 43.2 fL 35.1-43.9 [facility] Work Phone: Erythrocyte distribution width (RBC) [Ratio] 13.2 % 11.6-14.6 [facility] Work Phone: MCH (RBC) [Entitic mass] 29.4 pg 27.0-32.0 [facility] Work Phone: MCHC Auto (RBC) [Mass/Vol]on 06-23-2022 MCHC (RBC) [Mass/Vol] 32.8 g/dL 32-36 [facility] Work Phone: No Panel Informationon 06-23 Estimated GFR (MDRD) Amer 63 mL/min >60 [facility] Work Phone: Comment on above: GFR Calc Estimated GFR (MDRD) Non-Af Amer 52 mL/min >60 [facility] Work Phone: Comment on above: Non- GFR Calc Platelets bldon 06-23-2022 Platelets (Bld) [#/Vol] 348 10*3/uL 150-450 [facility] Work Phone: Serum or plasma calcium tai urement (mass/volume)on 06-23-2022 Calcium [Mass/Vol] 8.8 mg/dL 8.5-10.1 [facility] Work Phone: Serum or plasma creatinine m easurement (mass/volume)on 06-23-2022 Creatinine [Mass/Vol] 1.14 mg/dL 0.55-1.02 [facility] Work Phone: Comment on above: The validity of the calculated GFR & GFRAA in patients over 70 years has not been determined. Clinical correlation is essential. Serum or plasma urea nitroge n measurement (mass/volume)on 06-23-2022 Urea nitrogen [Mass/Vol] 22 mg/dL 7-18 [facility] Work Phone: Thin prep Papanicolaou smear with manual screeningon 06-23-2022 Thin prep Papanicolaou smear with manual screening 10 5-15 [facility] Work Phone: Absolute lymphocyte counton 06-12-2022 Lymphocytes Auto (Unsp spec) [#/Vol] 2.71 10*3/uL 0.83-4.51 [facility] Work Phone: Basophil percentageon 2021 Basophils/100 WBC (Bld) 0.7 % 0-1 [facility] Work Phone: Chloride [Moles/Vol] 99 mmol/L 98-107 [facility]: Eosinophils/100 WBC (Bld) 1.9 % 0-5 [facility] Work Phone: Glucose [Mass/Vol] 244 mg/dL 74-106 [facility] Work Phone: Comment on above: Glucose result great er than or equal to 200 mg/dLsuggests DIABETES MELLITUS per A.D.A. criteria. Neutrophils (Bld) [#/Vol] 4.0 10*3/uL 2.0-7.7 [facility] Work Phone: Neutrophils/100 WBC (Bld) 53.9 % 47-70 [facility] Work Phone: Potassium [Moles/Vol] 4.1 mmol/L 3.5-5.1 [facility] Work [facility]: Sodium [Moles/Vol] 135 mmol/L 136-145 [facility] Work Phone: WBC (Bld) [#/Vol] 7.5 10*3/uL 4.4-11.0 [facility] Work Phone: Blood erythrocytes count (nu mber/volume)on 06-12-2022 RBC (Bld) [#/Vol] 4.04 10*6/uL 4.2-5.4 [facility] Work [facility]: Blood hemoglobin measurement (mass/volume)on 06-12-2022 Hemoglobin (Bld) [Mass/Vol] 11.9 g/dL 12.0-15.0 [facility] Work Phone: Blood lymphocytes/100 leukoc yteson 08-19-2022 Lymphocytes/100 WBC (Bld) 36.3 % 19-41 [facility] Work Phone: Blood monocytes/100 leukocyt eson 06-12-2022 Monocytes/100 WBC (Bld) 6.7 % 0-10 [facility] Work Phone: Blood platelet mean volumeon 06-12-2022 Platelet mean volume (Bld) [Entitic vol] 9.6 fL 6.2-12.0 [facility] Work Phone: Determination of erythrocyte mean corpuscular volume (MCV)on 06-12-2022 MCV (RBC) [Entitic vol] 90.8 fL 81-99 [facility] Work Phone: Hematocrit Auto (Bld) [Volum e fraction]on 06-12-2022 Hematocrit (Bld) [Volume fraction] 36.7 % 37-47 [facility] Work Phone: Laboratory - Chemistry and C hemistry - challengeon 06-12-2022 CO2 [Moles/Vol] 28.0 mmol/L 21.0-32.0 [facility] Work Phone: Natriuretic peptide B (Bld) [Mass/Vol] 9.7 pg/mL 0-100 [facility] Work Phone: Urea nitrogen/Creatinine [Mass ratio] 20.9 mg/mg 10-20 [facility] Work Phone: Laboratory - Hematology and Cell countson 06-12-2022 Erythrocyte distribution width (RBC) [Entitic vol] 45.7 fL 35.1-43.9 [facility] Work Phone: [phone] Erythrocyte distribution width (RBC) [Ratio] 13.8 % 11.6-14.6 [facility] Work Phone: Immature granulocytes/100 WBC (Bld) 0.500 % 0.0-0.9 [facility] Work Phone: Comment on above: IG% - Immature Granu locytes (promyelocytes, myelocytes and metamyelocytes) > 1% indicates that a LEFT SHIFT is Present. MCH (RBC) [Entitic mass] 29.5 pg 27.0-32.0 [facility] Work Phone: Nucleated RBC/100 WBC (Bld) [Ratio] 0 % 0-5 [facility] Work Phone: MCHC Auto (RBC) [Mass/Vol]on 06-12-2022 MCHC (RBC) [Mass/Vol] 32.4 g/dL 32-36 [facility] Work Phone: No Panel Informationon 06-12 Estimated GFR (MDRD) Amer 65 mL/min >60 [facility] Work Phone: Comment on above: GFR Calc Estimated GFR (MDRD) Non-Af Amer 54 mL/min >60 [facility] Work Phone: Comment on above: Non- GFR Calc Platelets bldon 06-12-2022 Platelets (Bld) [#/Vol] 323 10*3/uL 150-450 [facility] Work Phone: Serum or plasma calcium tai urement (mass/volume)on 06-12-2022 Calcium [Mass/Vol] 8.7 mg/dL 8.5-10.1 [facility] Work Phone: Serum or plasma creatinine m easurement (mass/volume)on 06-12-2022 Creatinine [Mass/Vol] 1.10 mg/dL 0.55-1.02 [facility] Work Phone: Comment on above: The validity of the calculated GFR & GFRAA in patients over 70 years has not been determined. Clinical correlation is essential. Serum or plasma urea nitroge n measurement (mass/volume)on 06-12-2022 Urea nitrogen [Mass/Vol] 23 mg/dL 7-18 [facility] Work Phone: Thin prep Papanicolaou smear with manual screeningon 06-12-2022 Thin prep Papanicolaou smear with manual screening 8 5-15 [facility] Work Phone: Basophil percentageon 2021 Chloride [Moles/Vol] 103 mmol/L 98-107 [facility] Work Phone: Glucose [Mass/Vol] 255 mg/dL 74-106 [facility] Work Phone: Comment on above: Glucose result great er than or equal to 200 mg/dLsuggests DIABETES MELLITUS per A.D.A. criteria. Potassium [Moles/Vol] 3.7 mmol/L 3.5-5.1 [facility] Work Phone: Sodium [Moles/Vol] 138 mmol/L 136-145 [facility] Work Phone: WBC (Bld) [#/Vol] 6.8 10*3/uL 4.4-11.0 [facility] Work Phone: Blood erythrocytes count (nu mber/volume)on 06-09-2022 RBC (Bld) [#/Vol] 3.50 10*6/uL 4.2-5.4 [facility] Work [facility]: Blood hemoglobin measurement (mass/volume)on 06-09-2022 Hemoglobin (Bld) [Mass/Vol] 10.5 g/dL 12.0-15.0 [facility] Work Phone: Blood platelet mean volumeon 06-09-2022 Platelet mean volume (Bld) [Entitic vol] 9.7 fL 6.2-12.0 [facility] Work Phone: Determination of erythrocyte mean corpuscular volume (MCV)on 06-09-2022 MCV (RBC) [Entitic vol] 93.1 fL 81-99 [facility] Work Phone: Hematocrit Auto (Bld) [Volum e fraction]on 06-09-2022 Hematocrit (Bld) [Volume fraction] 32.6 % 37-47 [facility] Work Phone: Laboratory - Chemistry and C hemistry - challengeon 06-09-2022 CO2 [Moles/Vol] 27.0 mmol/L 21.0-32.0 [facility] Work Phone: Urea nitrogen/Creatinine [Mass ratio] 16.8 mg/mg 10-20 [facility] Work Phone: Laboratory - Hematology and Cell countson 06-09-2022 Erythrocyte distribution width (RBC) [Entitic vol] 47.2 fL 35.1-43.9 [facility] Work Phone: Erythrocyte distribution width (RBC) [Ratio] 13.8 % 11.6-14.6 [facility] Work Phone: MCH (RBC) [Entitic mass] 30.0 pg 27.0-32.0 [facility] Work Phone: MCHC Auto (RBC) [Mass/Vol]on 06-09-2022 MCHC (RBC) [Mass/Vol] 32.2 g/dL 32-36 [facility] Work Phone: No Panel Informationon 06-09 Estimated GFR (MDRD) Amer 68 mL/min >60 [facility] Work Phone: Comment on above: GFR Calc Estimated GFR (MDRD) Non-Af Amer 56 mL/min >60 [facility] Work Phone: Comment on above: Non- GFR Calc Platelets bldon 06-09-2022 Platelets (Bld) [#/Vol] 229 10*3/uL 150-450 [facility] Work Phone: Serum or plasma calcium tai urement (mass/volume)on 06-09-2022 Calcium [Mass/Vol] 8.6 mg/dL 8.5-10.1 [facility] Work Phone: Serum or plasma creatinine m easurement (mass/volume)on 06-09-2022 Creatinine [Mass/Vol] 1.07 mg/dL 0.55-1.02 [facility] Work Phone: Comment on above: The validity of the calculated GFR & GFRAA in patients over 70 years has not been determined. Clinical correlation is essential. Serum or plasma urea nitroge n measurement (mass/volume)on 06-09-2022 Urea nitrogen [Mass/Vol] 18 mg/dL 7-18 [facility] Work Phone: Thin prep Papanicolaou smear with manual screeningon 06-09-2022 Thin prep Papanicolaou smear with manual screening 8 5-15 [facility] Work Phone: Basophil percentageon 2021 Chloride [Moles/Vol] 101 mmol/L 98-107 [facility] Work [facility]: Glucose [Mass/Vol] 261 mg/dL 74-106 [facility] Work Phone: Comment on above: Glucose result great er than or equal to 200 mg/dLsuggests DIABETES MELLITUS per A.D.A. criteria. Potassium [Moles/Vol] 4.0 mmol/L 3.5-5.1 [facility] Work Phone: Sodium [Moles/Vol] 134 mmol/L 136-145 [facility] Work Phone: WBC (Bld) [#/Vol] 6.3 10*3/uL 4.4-11.0 [facility] Work Phone: Blood erythrocytes count (nu mber/volume)on 05-26-2022 RBC (Bld) [#/Vol] 3.47 10*6/uL 4.2-5.4 [facility] Work Phone: Blood hemoglobin measurement (mass/volume)on 05-26-2022 Hemoglobin (Bld) [Mass/Vol] 10.6 g/dL 12.0-15.0 [facility] Work Phone: Blood platelet mean volumeon 05-26-2022 Platelet mean volume (Bld) [Entitic vol] 9.6 fL 6.2-12.0 [facility] Work Phone: Determination of erythrocyte mean corpuscular volume (MCV)on 05-26-2022 MCV (RBC) [Entitic vol] 92.2 fL 81-99 [facility] Work Phone: Hematocrit Auto (Bld) [Volum e fraction]on 05-26-2022 Hematocrit (Bld) [Volume fraction] 32.0 % 37-47 [facility] Work Phone: Laboratory - Chemistry and C hemistry - challengeon 05-26-2022 CO2 [Moles/Vol] 29.0 mmol/L 21.0-32.0 [facility] Work Phone: Urea nitrogen/Creatinine [Mass ratio] 15.7 mg/mg 10-20 [facility] Work Phone: Laboratory - Hematology and Cell countson 05-26-2022 Erythrocyte distribution width (RBC) [Entitic vol] 48.0 fL 35.1-43.9 [facility] Work Phone: Erythrocyte distribution width (RBC) [Ratio] 14.3 % 11.6-14.6 [facility] Work Phone: MCH (RBC) [Entitic mass] 30.5 pg 27.0-32.0 [facility] Work Phone: MCHC Auto (RBC) [Mass/Vol]on 05-26-2022 MCHC (RBC) [Mass/Vol] 33.1 g/dL 32-36 [facility] Work Phone: No Panel Informationon 05-26 Estimated GFR (MDRD) Amer 55 mL/min >60 [facility] Work Phone: Comment on above: GFR Calc Estimated GFR (MDRD) Non-Af Amer 46 mL/min >60 [facility] Work Phone: Comment on above: Non- GFR Calc Platelets bldon 05-26-2022 Platelets (Bld) [#/Vol] 267 10*3/uL 150-450 [facility] Work Phone: Serum or plasma calcium tai urement (mass/volume)on 05-26-2022 Calcium [Mass/Vol] 8.9 mg/dL 8.5-10.1 [facility] Work Phone: Serum or plasma creatinine m easurement (mass/volume)on 05-26-2022 Creatinine [Mass/Vol] 1.27 mg/dL 0.55-1.02 [facility] Work Phone: Comment on above: The validity of the calculated GFR & GFRAA in patients over 70 years has not been determined. Clinical correlation is essential. Serum or plasma urea nitroge n measurement (mass/volume)on 05-26-2022 Urea nitrogen [Mass/Vol] 20 mg/dL 7-18 [facility] Work Phone: Thin prep Papanicolaou smear with manual screeningon 05-26-2022 Thin prep Papanicolaou smear with manual screening 4 5-15 [facility] Work Phone: Absolute lymphocyte counton 05-21-2022 Lymphocytes Auto (Unsp spec) [#/Vol] 2.91 10*3/uL 0.83-4.51 [facility] Work Phone: Basophil percentageon 2021 Basophils/100 WBC (Bld) 0.9 % 0-1 [facility] Work Phone: Bilirubin [Mass/Vol] 0.20 mg/dL 0.20-1.00 [facility] Work Phone: Comment on above: For patients on eltr ombopag therapy, use of Dimension [place] TBIL is not recommended. Chloride [Moles/Vol] 100 mmol/L 98-107 [facility] Work Phone: Cholesterol [Mass/Vol] 244 mg/dL <200 [facility] Work Phone: Comment on above: <200 mg/dL Desirable 200-240 mg/dL Borderline >240 mg/dL High Risk Eosinophils/100 WBC (Bld) 2.1 % 0-5 [facility] Work Phone: Glucose [Mass/Vol] 197 mg/dL 74-106 [facility] Work Phone: Comment on above: Fasting Glucose resu lt greater than or equal to 126 mg/dL suggests DIABETES MELLITUS per A.D.A. criteria. Neutrophils (Bld) [#/Vol] 2.3 10*3/uL 2.0-7.7 [facility] Work Phone: [phone] Neutrophils/100 WBC (Bld) 39.7 % 47-70 [facility] Work Phone: Potassium [Moles/Vol] 4.3 mmol/L 3.5-5.1 [facility] Work Phone: Protein [Mass/Vol] 6.9 g/dL 6.4-8.2 [facility] Work Phone: [phone] Sodium [Moles/Vol] 136 mmol/L 136-145 [facility] Work Phone: Triglyceride [Mass/Vol] 337 mg/dL <199 [facility] Work Phone: Comment on above: The drugs N-Acetylcy steine and Metamizole may falsely depress this assay.Serum Triglycerides Reference Interval Normal <150 mg/dL Borderline high 150 - 199 mg/dL High 200 - 499 mg/dL Very High > or = 500 mg/dL WBC (Bld) [#/Vol] 5.7 10*3/uL 4.4-11.0 [facility] Work Phone: Blood erythrocytes count (nu mber/volume)on 05-21-2022 RBC (Bld) [#/Vol] 3.57 10*6/uL 4.2-5.4 [facility] Work Phone: Blood hemoglobin measurement (mass/volume)on 05-21-2022 Hemoglobin (Bld) [Mass/Vol] 10.8 g/dL 12.0-15.0 [facility] Work Phone: Blood lymphocytes/100 leukoc yteson 05-21-2022 Lymphocytes/100 WBC (Bld) 51.4 % 19-41 [facility] Work Phone: Blood monocytes/100 leukocyt eson 05-21-2022 Monocytes/100 WBC (Bld) 5.5 % 0-10 [facility] Work Phone: Blood platelet mean volumeon 05-21-2022 Platelet mean volume (Bld) [Entitic vol] 9.2 fL 6.2-12.0 [facility] Work Phone: Determination of erythrocyte mean corpuscular volume (MCV)on 05-21-2022 MCV (RBC) [Entitic vol] 92.4 fL 81-99 [facility] Work Phone: Glucose Glucometer (BldC) [M ass/Vol]on 05-21-2022 Glucose [Mass/Vol] 164 mg/dL 74-106 [facility] Work Phone: Comment on above: [facility] Hematocrit Auto (Bld) [Volum e fraction]on 05-21-2022 Hematocrit (Bld) [Volume fraction] 33.0 % 37-47 [facility] Work Phone: Laboratory - Chemistry and C hemistry - challengeon 05-21-2022 ALP [Catalytic activity/Vol] 76 U/L 45-117 [facility] Work Phone: ALT [Catalytic activity/Vol] 83 U/L 13-56 [facility] Work Phone: CO2 [Moles/Vol] 31.0 mmol/L 21.0-32.0 [facility] Work Phone: Free T4 [Mass/Vol] 0.14 ng/dL 0.76-1.46 [facility] Work Phone: Globulin (S) [Mass/Vol] 3.8 g/dL 2.2-4.2 [facility] Work Phone: Urea nitrogen/Creatinine [Mass ratio] 15.0 mg/mg 10-20 [facility] Work Phone: Laboratory - Hematology and Cell countson 05-21-2022 Erythrocyte distribution width (RBC) [Entitic vol] 48.4 fL 35.1-43.9 [facility] Work Phone: Erythrocyte distribution width (RBC) [Ratio] 14.2 % 11.6-14.6 [facility] Work Phone: Immature granulocytes/100 WBC (Bld) 0.400 % 0.0-0.9 [facility] Work Phone: Comment on above: IG% - Immature Granu locytes (promyelocytes, myelocytes and metamyelocytes) > 1% indicates that a LEFT SHIFT is Present. MCH (RBC) [Entitic mass] 30.3 pg 27.0-32.0 [facility] Work Phone: Nucleated RBC/100 WBC (Bld) [Ratio] 0 % 0-5 [facility] Work Phone: MCHC Auto (RBC) [Mass/Vol]on 05-21-2022 MCHC (RBC) [Mass/Vol] 32.7 g/dL 32-36 [facility] Work Phone: No Panel Informationon 05-21 Estimated Creatinine Clearance Calc 36.71 ml/min [facility] Work Phone: Estimated GFR (MDRD) Amer 59 mL/min >60 [facility] Work Phone: Comment on above: GFR Calc Estimated GFR (MDRD) Non-Af Amer 49 mL/min >60 [facility] Work Phone: Comment on above: Non- GFR Calc Troponin I High Sensitivity 32 pg/mL 3.0-54.0 [facility] Work Phone: Comment on above: Please Note: New Carolann t Units and Gender Specific Reference Ranges. For more information see Policy Stat Procedure [place] High Sensitivity Troponin (TNIH) and attachments. Troponin I High Sensitivity 32 pg/mL 3.0-54.0 [facility] Work Phone: Comment on above: Please Note: New Carolann t Units and Gender Specific Reference Ranges. For more information see Policy Stat Procedure [place] High Sensitivity Troponin (TNIH) and attachments. Platelets bldon 05-21-2022 Platelets (Bld) [#/Vol] 240 10*3/uL 150-450 [facility] Work Phone: Serum or plasma albumin tai urement (mass/volume)on 05-21-2022 Albumin [Mass/Vol] 3.1 g/dL 3.2-5.0 [facility] Work Phone: Serum or plasma albumin/glob ulin mass ratioon 05-21-2022 Albumin/Globulin [Mass ratio] 0.8 {ratio} 0.9-2.4 [facility] Work Phone: Serum or plasma calcium tai urement (mass/volume)on 05-21-2022 Calcium [Mass/Vol] 8.6 mg/dL 8.5-10.1 [facility] Work Phone: Serum or plasma cholesterol in HDL measurement (mass/volume)on 05-21-2022 Cholesterol in HDL [Mass/Vol] 31 mg/dL >40 [facility] Work Phone: Comment on above: The drugs N-Acetylcy steine and Metamizole may falsely depress this assay. Reference Range HDL <40 mg/dL Low HDL Cholesterol HDL >or= 60 mg/dL High HDL Cholesterol Serum or plasma cholesterol in VLDL measurement (mass/volume)on 05-21-2022 Cholesterol in VLDL [Mass/Vol] 67 mg/dL 5-40 [facility] Work Phone: Serum or plasma creatinine m easurement (mass/volume)on 05-21-2022 Creatinine [Mass/Vol] 1.20 mg/dL 0.55-1.02 [facility] Work Phone: Comment on above: The validity of the calculated GFR & GFRAA in patients over 70 years has not been determined. Clinical correlation is essential. Serum or plasma low density lipoprotein (LDL) cholesterol measurement (mass/volume)on 05-21-2022 Cholesterol in LDL [Mass/Vol] 146 mg/dL 0-130 [facility] Work Phone: Serum or plasma urea nitroge n measurement (mass/volume)on 05-21-2022 Urea nitrogen [Mass/Vol] 18 mg/dL 7-18 [facility] Work Phone: Thin prep Papanicolaou smear with manual screeningon 05-21-2022 Thin prep Papanicolaou smear with manual screening 42 U/L 15-37 [facility] Work Phone: Thin prep Papanicolaou smear with manual screening 5 5-15 [facility] Work Phone: [phone] Absolute lymphocyte counton 05-20-2022 Lymphocytes Auto (Unsp spec) [#/Vol] 2.77 10*3/uL 0.83-4.51 [facility] Work Phone: Basophil percentageon 2021 Basophils/100 WBC (Bld) 0.9 % 0-1 [facility] Work Phone: Chloride [Moles/Vol] 99 mmol/L 98-107 [facility] Work Phone: Eosinophils/100 WBC (Bld) 2.0 % 0-5 [facility] Work Phone: Glucose [Mass/Vol] 322 mg/dL 74-106 [facility] Work Phone: Comment on above: Glucose result great er than or equal to 200 mg/dLsuggests DIABETES MELLITUS per A.D.A. criteria. Neutrophils (Bld) [#/Vol] 3.3 10*3/uL 2.0-7.7 [facility] Work Phone: Neutrophils/100 WBC (Bld) 49.7 % 47-70 [facility] Work Phone: [phone] Potassium [Moles/Vol] 4.3 mmol/L 3.5-5.1 [facility] Work Phone: Sodium [Moles/Vol] 135 mmol/L 136-145 [facility] Work Phone: [phone] WBC (Bld) [#/Vol] 6.6 10*3/uL 4.4-11.0 [facility] Work Phone: [phone] Blood erythrocytes count (nu mber/volume)on 05-20-2022 RBC (Bld) [#/Vol] 3.54 10*6/uL 4.2-5.4 [facility] Work Phone: Blood hemoglobin measurement (mass/volume)on 05-20-2022 Hemoglobin (Bld) [Mass/Vol] 10.9 g/dL 12.0-15.0 [facility] Work Phone: Blood lymphocytes/100 leukoc yteson 05-20-2022 Lymphocytes/100 WBC (Bld) 42.3 % 19-41 [facility] Work Phone: Blood monocytes/100 leukocyt eson 05-20-2022 Monocytes/100 WBC (Bld) 4.6 % 0-10 [facility] Work Phone: Blood platelet mean volumeon 05-20-2022 Platelet mean volume (Bld) [Entitic vol] 9.5 fL 6.2-12.0 [facility] Work Phone: Determination of erythrocyte mean corpuscular volume (MCV)on 05-20-2022 MCV (RBC) [Entitic vol] 91.5 fL 81-99 [facility] Work Phone: Hematocrit Auto (Bld) [Volum e fraction]on 05-20-2022 Hematocrit (Bld) [Volume fraction] 32.4 % 37-47 [facility] Work Phone: INR in Blood by Coagulation assayon 05-20-2022 INR Coag (Bld) [Relative time] 1.0 {INR} [facility] Work Phone: Laboratory - Chemistry and C hemistry - challengeon 05-20-2022 CO2 [Moles/Vol] 30.0 mmol/L 21.0-32.0 [facility] Work Phone: Magnesium [Mass/Vol] 2.1 mg/dL 1.6-2.6 [facility] Work Phone: Urea nitrogen/Creatinine [Mass ratio] 15.4 mg/mg 10-20 [facility] Work Phone: Laboratory - Coagulationon 0 05-20-2022 aPTT Coag (Bld) [Time] 29.0 s 24.1-36.2 [facility] Work Phone: PT Coag (PPP) [Time] 13.1 s 11.7-14.9 [facility] Work Phone: Laboratory - Drug toxicology on 05-20-2022 Amphetamines Ql (U) Negative <1000 ng/mL [facility] Work Phone: Benzodiazepines Ql (U) Positive < 200 ng/mL [facility] Work Phone: Cannabinoids Screen Ql (U) Negative < 50 ng/mL [facility] Work Phone: Cocaine Ql (U) Negative < 300 ng/mL [facility] Work Phone: Opiates Ql (U) Negative < 300 ng/mL [facility] Work Phone: Laboratory - Hematology and Cell countson 05-20-2022 Erythrocyte distribution width (RBC) [Entitic vol] 47.6 fL 35.1-43.9 [facility] Work Phone: Erythrocyte distribution width (RBC) [Ratio] 14.3 % 11.6-14.6 [facility] Work Phone: Immature granulocytes/100 WBC (Bld) 0.500 % 0.0-0.9 [facility] Work Phone: Comment on above: IG% - Immature Granu locytes (promyelocytes, myelocytes and metamyelocytes) > 1% indicates that a LEFT SHIFT is Present. MCH (RBC) [Entitic mass] 30.8 pg 27.0-32.0 [facility] Work Phone: Nucleated RBC/100 WBC (Bld) [Ratio] 0 % 0-5 [facility] Work Phone: MCHC Auto (RBC) [Mass/Vol]on 05-20-2022 MCHC (RBC) [Mass/Vol] 33.6 g/dL 32-36 [facility] Work Phone: No Panel Informationon 05-20 MDMA (Ecstasy) Screen Negative < 500 ng/mL [facility] Work Phone: Urine Barbiturates Screen Negative < 200 ng/mL [facility] Work Phone: Urine Drug Screen Comment [facility] Work Phone: Comment on above: CONFIRMATORY TESTING FOR ALL POSITIVE URINE DRUG SCREENRESULTS WILL ONLY BE SENT OUT UPON PHYSICIAN ORDER. VISTA Urine Drug Screen methods provide only preliminaryanalytical test results. A more specific alternate chemicalmethod must be used in order to obtain a confirmedanalytical result. Gas chromatography/mass spectrometery(GC/MS) is the preferred confirmatory method. Clinicalconsideration and professional judgement should be appliedto any drug of abuse test result, particularly whenpreliminary positive results are used. URINE TCA TESTING MUST BE ORDERED SEPARATELY. USE TESTMNEMONIC: [facility] Urine Methadone Screen Negative < 300 ng/mL [facility] Work Phone: Estimated Creatinine Clearance Calc 35.81 ml/min [facility] Work Phone: Estimated GFR (MDRD) Amer 58 mL/min >60 [facility] Work Phone: Comment on above: GFR Calc Estimated GFR (MDRD) Non-Af Amer 48 mL/min >60 [facility] Work Phone: Comment on above: Non- GFR Calc Thyroid Stimulating Hormone (TSH) 109.00 uIU/mL 0.358-3.74 [facility] Work Phone: Platelets bldon 05-20-2022 Platelets (Bld) [#/Vol] 291 10*3/uL 150-450 [facility] Work Phone: Serum or plasma calcium tai urement (mass/volume)on 05-20-2022 Calcium [Mass/Vol] 9.2 mg/dL 8.5-10.1 [facility] Work Phone: Serum or plasma creatinine m easurement (mass/volume)on 05-20-2022 Creatinine [Mass/Vol] 1.23 mg/dL 0.55-1.02 [facility] Work Phone: Comment on above: The validity of the calculated GFR & GFRAA in patients over 70 years has not been determined. Clinical correlation is essential. Serum or plasma urea nitroge n measurement (mass/volume)on 05-20-2022 Urea nitrogen [Mass/Vol] 19 mg/dL 7-18 [facility] Work Phone: Thin prep Papanicolaou smear with manual screeningon 05-20-2022 Thin prep Papanicolaou smear with manual screening 6 5-15 [facility] Work Phone: Urine phencyclidine (PCP) de tectionon 05-20-2022 Phencyclidine Ql (U) Negative < 25 ng/mL [facility] Work Phone: Basophil percentageon 2021 Chloride [Moles/Vol] 99 mmol/L 98-107 [facility] Work Phone: Glucose [Mass/Vol] 161 mg/dL 74-106 [facility] Work Phone: Comment on above: Fasting Glucose resu lt greater than or equal to 126 mg/dL suggests DIABETES MELLITUS per A.D.A. criteria. Potassium [Moles/Vol] 4.0 mmol/L 3.5-5.1 [facility] Work Phone: Sodium [Moles/Vol] 135 mmol/L 136-145 [facility] Work Phone: WBC (Bld) [#/Vol] 8.6 10*3/uL 4.4-11.0 [facility] Work Phone: Blood erythrocytes count (nu mber/volume)on 05-12-2022 RBC (Bld) [#/Vol] 3.83 10*6/uL 4.2-5.4 [facility] Work Phone: Blood hemoglobin measurement (mass/volume)on 05-12-2022 Hemoglobin (Bld) [Mass/Vol] 11.7 g/dL 12.0-15.0 [facility] Work Phone: Blood platelet mean volumeon 05-12-2022 Platelet mean volume (Bld) [Entitic vol] 9.0 fL 6.2-12.0 [facility] Work Phone: Determination of erythrocyte mean corpuscular volume (MCV)on 05-12-2022 MCV (RBC) [Entitic vol] 92.7 fL 81-99 [facility] Work Phone: Hematocrit Auto (Bld) [Volum e fraction]on 05-12-2022 Hematocrit (Bld) [Volume fraction] 35.5 % 37-47 [facility] Work Phone: Laboratory - Chemistry and C hemistry - challengeon 05-12-2022 CO2 [Moles/Vol] 30.0 mmol/L 21.0-32.0 [facility] Work Phone: Urea nitrogen/Creatinine [Mass ratio] 21.8 mg/mg 10-20 [facility] Work Phone: Laboratory - Hematology and Cell countson 05-12-2022 Erythrocyte distribution width (RBC) [Entitic vol] 48.8 fL 35.1-43.9 [facility] Work Phone: Erythrocyte distribution width (RBC) [Ratio] 14.5 % 11.6-14.6 [facility] Work Phone: MCH (RBC) [Entitic mass] 30.5 pg 27.0-32.0 [facility] Work Phone: MCHC Auto (RBC) [Mass/Vol]on 05-12-2022 MCHC (RBC) [Mass/Vol] 33.0 g/dL 32-36 [facility] Work Phone: No Panel Informationon 05-12 Estimated GFR (MDRD) Amer 60 mL/min >60 [facility] Work Phone: Comment on above: GFR Calc Estimated GFR (MDRD) Non-Af Amer 49 mL/min >60 [facility] Work Phone: Comment on above: Non- GFR Calc Platelets bldon 05-12-2022 Platelets (Bld) [#/Vol] 287 10*3/uL 150-450 [facility] Work Phone: Serum or plasma calcium tai urement (mass/volume)on 05-12-2022 Calcium [Mass/Vol] 9.7 mg/dL 8.5-10.1 [facility] Work Phone: Serum or plasma creatinine m easurement (mass/volume)on 05-12-2022 Creatinine [Mass/Vol] 1.19 mg/dL 0.55-1.02 [facility] Work Phone: Comment on above: The validity of the calculated GFR & GFRAA in patients over 70 years has not been determined. Clinical correlation is essential. Serum or plasma urea nitroge n measurement (mass/volume)on 05-12-2022 Urea nitrogen [Mass/Vol] 26 mg/dL 7-18 [facility] Work Phone: Thin prep Papanicolaou smear with manual screeningon 05-12-2022 Thin prep Papanicolaou smear with manual screening 6 5-15 [facility] Work Phone: Absolute lymphocyte counton 05-03-2022 Lymphocytes Auto (Unsp spec) [#/Vol] 2.67 10*3/uL 0.83-4.51 [facility] Work Phone: Basophil percentageon 2021 Basophils/100 WBC (Bld) 1.2 % 0-1 [facility] Work Phone: Chloride [Moles/Vol] 100 mmol/L 98-107 [facility] Work Phone: Eosinophils/100 WBC (Bld) 1.5 % 0-5 [facility] Work Phone: Glucose [Mass/Vol] 130 mg/dL 74-106 [facility] Work Phone: Comment on above: Fasting Glucose resu lt greater than or equal to 126 mg/dL suggests DIABETES MELLITUS per A.D.A. criteria. Neutrophils (Bld) [#/Vol] 2.7 10*3/uL 2.0-7.7 [facility] Work Phone: Neutrophils/100 WBC (Bld) 45.1 % 47-70 [facility] Work Phone: Potassium [Moles/Vol] 4.0 mmol/L 3.5-5.1 [facility] Work Phone: Sodium [Moles/Vol] 136 mmol/L 136-145 [facility] Work Phone: WBC (Bld) [#/Vol] 5.9 10*3/uL 4.4-11.0 [facility] Work Phone: Blood erythrocytes count (nu mber/volume)on 05-03-2022 RBC (Bld) [#/Vol] 3.46 10*6/uL 4.2-5.4 [facility]: Blood hemoglobin measurement (mass/volume)on 05-03-2022 Hemoglobin (Bld) [Mass/Vol] 10.6 g/dL 12.0-15.0 [facility] Work Phone: Blood lymphocytes/100 leukoc yteson 05-03-2022 Lymphocytes/100 WBC (Bld) 45.1 % 19-41 [facility] Work Phone: Blood monocytes/100 leukocyt eson 05-03-2022 Monocytes/100 WBC (Bld) 6.3 % 0-10 [facility] Work Phone: Blood platelet mean volumeon 05-03-2022 Platelet mean volume (Bld) [Entitic vol] 9.4 fL 6.2-12.0 [facility] Work Phone: Determination of erythrocyte mean corpuscular volume (MCV)on 05-03-2022 MCV (RBC) [Entitic vol] 91.3 fL 81-99 [facility] Work Phone: Hematocrit Auto (Bld) [Volum e fraction]on 05-03-2022 Hematocrit (Bld) [Volume fraction] 31.6 % 37-47 [facility] Work Phone: Laboratory - Chemistry and C hemistry - challengeon 05-03-2022 CO2 [Moles/Vol] 29.0 mmol/L 21.0-32.0 [facility] Work Phone: Urea nitrogen/Creatinine [Mass ratio] 19.3 mg/mg 10-20 [facility] Work Phone: Laboratory - Hematology and Cell countson 05-03-2022 Erythrocyte distribution width (RBC) [Entitic vol] 46.8 fL 35.1-43.9 [facility] Work Phone: Erythrocyte distribution width (RBC) [Ratio] 14.4 % 11.6-14.6 [facility] Work Phone: Immature granulocytes/100 WBC (Bld) 0.800 % 0.0-0.9 [facility] Work Phone: Comment on above: IG% - Immature Granu locytes (promyelocytes, myelocytes and metamyelocytes) > 1% indicates that a LEFT SHIFT is Present. MCH (RBC) [Entitic mass] 30.6 pg 27.0-32.0 [facility] Work Phone: Nucleated RBC/100 WBC (Bld) [Ratio] 0.3 % 0-5 [facility] Work Phone: MCHC Auto (RBC) [Mass/Vol]on 05-03-2022 MCHC (RBC) [Mass/Vol] 33.5 g/dL 32-36 [facility] Work Phone: No Panel Informationon 05-03 Troponin I High Sensitivity 57 pg/mL 3.0-54.0 [facility] Work Phone: Comment on above: Please Note: New Carolann t Units and Gender Specific Reference Ranges. For more information see Policy Stat Procedure [place] High Sensitivity Troponin (TNIH) and attachments. Estimated Creatinine Clearance Calc 37.01 ml/min [facility] Work Phone: Estimated GFR (MDRD) Amer 60 mL/min >60 [facility] Work Phone: Comment on above: GFR Calc Estimated GFR (MDRD) Non-Af Amer 49 mL/min >60 [facility] Work Phone: Comment on above: Non- GFR Calc Platelets bldon 05-03-2022 Platelets (Bld) [#/Vol] 267 10*3/uL 150-450 [facility] Work Phone: Serum or plasma calcium tai urement (mass/volume)on 05-03-2022 Calcium [Mass/Vol] 9.1 mg/dL 8.5-10.1 [facility] Work Phone: Serum or plasma creatinine m easurement (mass/volume)on 05-03-2022 Creatinine [Mass/Vol] 1.19 mg/dL 0.55-1.02 [facility] Work Phone: Comment on above: The validity of the calculated GFR & GFRAA in patients over 70 years has not been determined. Clinical correlation is essential. Serum or plasma urea nitroge n measurement (mass/volume)on 05-03-2022 Urea nitrogen [Mass/Vol] 23 mg/dL 7-18 [facility] Work Phone: Thin prep Papanicolaou smear with manual screeningon 05-03-2022 Thin prep Papanicolaou smear with manual screening 7 5-15 [facility] Work Phone: Basophil percentageon 2021 Chloride [Moles/Vol] 92 mmol/L 98-107 [facility] Work Phone: Glucose [Mass/Vol] 66 mg/dL 74-106 [facility] Work Phone: Potassium [Moles/Vol] 4.3 mmol/L 3.5-5.1 [facility] Work Phone: Sodium [Moles/Vol] 131 mmol/L 136-145 [facility] Work Phone: WBC (Bld) [#/Vol] 6.1 10*3/uL 4.4-11.0 [facility] Work Phone: Blood erythrocytes count (nu mber/volume)on 04-28-2022 RBC (Bld) [#/Vol] 3.66 10*6/uL 4.2-5.4 [facility] Work Phone: Blood hemoglobin measurement (mass/volume)on 04-28-2022 Hemoglobin (Bld) [Mass/Vol] 11.1 g/dL 12.0-15.0 [facility] Work Phone: Blood platelet mean volumeon 04-28-2022 Platelet mean volume (Bld) [Entitic vol] 9.5 fL 6.2-12.0 [facility] Work Phone: Determination of erythrocyte mean corpuscular volume (MCV)on 04-28-2022 MCV (RBC) [Entitic vol] 90.7 fL 81-99 [facility] Work Phone: Hematocrit Auto (Bld) [Volum e fraction]on 04-28-2022 Hematocrit (Bld) [Volume fraction] 33.2 % 37-47 [facility] Work Phone: Laboratory - Chemistry and C hemistry - challengeon 04-28-2022 CO2 [Moles/Vol] 31.0 mmol/L 21.0-32.0 [facility] Work Phone: Urea nitrogen/Creatinine [Mass ratio] 21.4 mg/mg 10-20 [facility] Work Phone: Laboratory - Hematology and Cell countson 04-28-2022 Erythrocyte distribution width (RBC) [Entitic vol] 46.7 fL 35.1-43.9 [facility] Work Phone: Erythrocyte distribution width (RBC) [Ratio] 14.2 % 11.6-14.6 [facility] Work Phone: MCH (RBC) [Entitic mass] 30.3 pg 27.0-32.0 [facility] Work Phone: MCHC Auto (RBC) [Mass/Vol]on 04-28-2022 MCHC (RBC) [Mass/Vol] 33.4 g/dL 32-36 [facility] Work Phone: No Panel Informationon 04-28 Estimated GFR (MDRD) Amer 71 mL/min >60 [facility] Work Phone: Comment on above: GFR Calc Estimated GFR (MDRD) Non-Af Amer 58 mL/min >60 [facility] Work Phone: Comment on above: Non- GFR Calc Platelets bldon 04-28-2022 Platelets (Bld) [#/Vol] 262 10*3/uL 150-450 [facility] Work Phone: Serum or plasma calcium tai urement (mass/volume)on 04-28-2022 Calcium [Mass/Vol] 9.4 mg/dL 8.5-10.1 [facility] Work Phone: Serum or plasma creatinine m easurement (mass/volume)on 04-28-2022 Creatinine [Mass/Vol] 1.03 mg/dL 0.55-1.02 [facility] Work Phone: Comment on above: The validity of the calculated GFR & GFRAA in patients over 70 years has not been determined. Clinical correlation is essential. Serum or plasma urea nitroge n measurement (mass/volume)on 04-28-2022 Urea nitrogen [Mass/Vol] 22 mg/dL 7-18 [facility] Work Phone: Thin prep Papanicolaou smear with manual screeningon 04-28-2022 Thin prep Papanicolaou smear with manual screening 8 5-15 [facility] Work Phone: Basophil percentageon 2021 Bilirubin [Mass/Vol] 0.20 mg/dL 0.20-1.00 [facility] Work Phone: Comment on above: For patients on eltr ombopag therapy, use of Dimension [place] TBIL is not recommended. Cholesterol [Mass/Vol] 254 mg/dL <200 [facility] Work Phone: Comment on above: <200 mg/dL Desirable 200-240 mg/dL Borderline >240 mg/dL High Risk Protein [Mass/Vol] 7.4 g/dL 6.4-8.2 [facility] Work Phone: Triglyceride [Mass/Vol] 250 mg/dL <199 [facility] Work Phone: Comment on above: The drugs N-Acetylcy steine and Metamizole may falsely depress this assay.Serum Triglycerides Reference Interval Normal <150 mg/dL Borderline high 150 - 199 mg/dL High 200 - 499 mg/dL Very High > or = 500 mg/dL Direct bilirubinon 2 Bilirubin.direct [Mass/Vol] 0.08 mg/dL 0.00-0.30 [facility] Work Phone: Glucose Glucometer (BldC) [M ass/Vol]on 04-25-2022 Glucose [Mass/Vol] 172 mg/dL 74-106 [facility] Work Phone: Comment on above: MANAGEMENT OF PATIEN T CARE PER NURSING PROTOCOL Glucose [Mass/Vol] 135 mg/dL 74-106 [facility] Work Phone: Comment on above: MANAGEMENT OF PATIEN T CARE PER NURSING PROTOCOL Laboratory - Chemistry and C hemistry - challengeon 04-25-2022 ALP [Catalytic activity/Vol] 123 U/L 45-117 [facility] Work Phone: ALT [Catalytic activity/Vol] 157 U/L 13-56 [facility] Work Phone: Globulin (S) [Mass/Vol] 4.1 g/dL 2.2-4.2 [facility] Work Phone: Serum or plasma albumin tai urement (mass/volume)on 04-25-2022 Albumin [Mass/Vol] 3.3 g/dL 3.2-5.0 [facility] Work Phone: Serum or plasma cholesterol in HDL measurement (mass/volume)on 04-25-2022 Cholesterol in HDL [Mass/Vol] 41 mg/dL >40 [facility] Work Phone: Comment on above: The drugs N-Acetylcy steine and Metamizole may falsely depress this assay. Reference Range HDL <40 mg/dL Low HDL Cholesterol HDL >or= 60 mg/dL High HDL Cholesterol Serum or plasma cholesterol in VLDL measurement (mass/volume)on 04-25-2022 Cholesterol in VLDL [Mass/Vol] 50 mg/dL 5-40 [facility] Work Phone: Serum or plasma low density lipoprotein (LDL) cholesterol measurement (mass/volume)on 04-25-2022 Cholesterol in LDL [Mass/Vol] 163 mg/dL 0-130 [facility] Work Phone: Thin prep Papanicolaou smear with manual screeningon 04-25-2022 Thin prep Papanicolaou smear with manual screening 124 U/L 15-37 [facility] Work Phone: Whole blood hemoglobin A1c/t otal hemoglobin ratio (mass fraction)on 04-25-2022 HbA1c (Bld) [Mass fraction] 9.4 % 3.8-5.6 [facility] Work Phone: Comment on above: Normal < 5.7 % Predi abetic 5.7 - 6.4 % Diabetic >or= 6.5 % Please note range changes. Absolute lymphocyte counton 04-24-2022 Lymphocytes Auto (Unsp spec) [#/Vol] 2.29 10*3/uL 0.83-4.51 [facility] Work Phone: Basophil percentageon 2021 Basophils/100 WBC (Bld) 1.1 % 0-1 [facility] Work Phone: Chloride [Moles/Vol] 101 mmol/L 98-107 [facility] Work Phone: Eosinophils/100 WBC (Bld) 2.2 % 0-5 [facility] Work Phone: Glucose [Mass/Vol] 180 mg/dL 74-106 [facility] Work Phone: Comment on above: Fasting Glucose resu lt greater than or equal to 126 mg/dL suggests DIABETES MELLITUS per A.D.A. criteria. Neutrophils (Bld) [#/Vol] 2.6 10*3/uL 2.0-7.7 [facility] Work Phone: Neutrophils/100 WBC (Bld) 49.1 % 47-70 [facility] Work Phone: Potassium [Moles/Vol] 3.9 mmol/L 3.5-5.1 [facility] Work Phone: [phone] Sodium [Moles/Vol] 138 mmol/L 136-145 [facility] Work Phone: WBC (Bld) [#/Vol] 5.4 10*3/uL 4.4-11.0 [facility] Work Phone: Blood erythrocytes count (nu mber/volume)on 04-24-2022 RBC (Bld) [#/Vol] 3.73 10*6/uL 4.2-5.4 [facility] Work Phone: Blood hemoglobin measurement (mass/volume)on 04-24-2022 Hemoglobin (Bld) [Mass/Vol] 11.4 g/dL 12.0-15.0 [facility] Work Phone: Blood lymphocytes/100 leukoc yteson 04-24-2022 Lymphocytes/100 WBC (Bld) 42.6 % 19-41 [facility] Work Phone: [phone] Blood monocytes/100 leukocyt eson 04-24-2022 Monocytes/100 WBC (Bld) 3.9 % 0-10 [facility] Work Phone: Blood platelet mean volumeon 04-24-2022 Platelet mean volume (Bld) [Entitic vol] 9.5 fL 6.2-12.0 [facility] Work Phone: Determination of erythrocyte mean corpuscular volume (MCV)on 04-24-2022 MCV (RBC) [Entitic vol] 91.4 fL 81-99 [facility] Work Phone: Hematocrit Auto (Bld) [Volum e fraction]on 04-24-2022 Hematocrit (Bld) [Volume fraction] 34.1 % 37-47 [facility] Work Phone: Laboratory - Chemistry and C hemistry - challengeon 04-24-2022 CO2 [Moles/Vol] 28.0 mmol/L 21.0-32.0 [facility] Work Phone: Urea nitrogen/Creatinine [Mass ratio] 15.7 mg/mg 10-20 [facility] Work Phone: Laboratory - Hematology and Cell countson 04-24-2022 Erythrocyte distribution width (RBC) [Entitic vol] 46.6 fL 35.1-43.9 [facility] Work Phone: Erythrocyte distribution width (RBC) [Ratio] 14.0 % 11.6-14.6 [facility] Work Phone: Immature granulocytes/100 WBC (Bld) 1.100 % 0.0-0.9 [facility] Work Phone: Comment on above: IG% - Immature Granu locytes (promyelocytes, myelocytes and metamyelocytes) > 1% indicates that a LEFT SHIFT is Present. MCH (RBC) [Entitic mass] 30.6 pg 27.0-32.0 [facility] Work Phone: Nucleated RBC/100 WBC (Bld) [Ratio] 0 % 0-5 [facility] Work Phone: MCHC Auto (RBC) [Mass/Vol]on 04-24-2022 MCHC (RBC) [Mass/Vol] 33.4 g/dL 32-36 [facility] Work Phone: No Panel Informationon 04-24 Troponin I High Sensitivity 57 pg/mL 3.0-54.0 [facility] Work Phone: Comment on above: Please Note: New Carolann t Units and Gender Specific Reference Ranges. For more information see Policy Stat Procedure [place] High Sensitivity Troponin (TNIH) and attachments. D-Dimer Quantitative (PE/DVT) 0.32 FEU/ug/m 0.27-0.49 [facility] Work Phone: Comment on above: NORMAL D-Dimer level (<0.50) indicates no DVT or PE. Estimated Creatinine Clearance Calc 40.78 ml/min [facility] Work Phone: Estimated GFR (MDRD) Amer 67 mL/min >60 [facility] Work Phone: Comment on above: GFR Calc Estimated GFR (MDRD) Non-Af Amer 55 mL/min >60 [facility] Work Phone: Comment on above: Non- GFR Calc Platelets bldon 04-24-2022 Platelets (Bld) [#/Vol] 254 10*3/uL 150-450 [facility] Work Phone: Serum or plasma calcium tai urement (mass/volume)on 04-24-2022 Calcium [Mass/Vol] 9.3 mg/dL 8.5-10.1 [facility] Work Phone: Serum or plasma creatinine m easurement (mass/volume)on 04-24-2022 Creatinine [Mass/Vol] 1.08 mg/dL 0.55-1.02 [facility] Work Phone: Comment on above: The validity of the calculated GFR & GFRAA in patients over 70 years has not been determined. Clinical correlation is essential. Serum or plasma urea nitroge n measurement (mass/volume)on 04-24-2022 Urea nitrogen [Mass/Vol] 17 mg/dL 7-18 [facility] Work Phone: Thin prep Papanicolaou smear with manual screeningon 04-24-2022 Thin prep Papanicolaou smear with manual screening 9 5-15 [facility] Work Phone: Absolute lymphocyte counton 04-17-2022 Lymphocytes Auto (Unsp spec) [#/Vol] 2.66 10*3/uL 0.83-4.51 [facility] Work Phone: Basophil percentageon 2021 Basophils/100 WBC (Bld) 1.1 % 0-1 [facility] Work Phone: Chloride [Moles/Vol] 100 mmol/L 98-107 [facility] Work Phone: Eosinophils/100 WBC (Bld) 3.0 % 0-5 [facility] Work Phone: Glucose [Mass/Vol] 86 mg/dL 74-106 [facility] Work Phone: [phone] Neutrophils (Bld) [#/Vol] 2.1 10*3/uL 2.0-7.7 [facility] Work Phone: Neutrophils/100 WBC (Bld) 39.4 % 47-70 [facility] Work Phone: [phone] Potassium [Moles/Vol] 3.8 mmol/L 3.5-5.1 [facility] Work Phone: [phone] Sodium [Moles/Vol] 136 mmol/L 136-145 [facility] Work Phone: WBC (Bld) [#/Vol] 5.4 10*3/uL 4.4-11.0 [facility] Work Phone: Blood erythrocytes count (nu mber/volume)on 04-17-2022 RBC (Bld) [#/Vol] 3.75 10*6/uL 4.2-5.4 [facility]: Blood hemoglobin measurement (mass/volume)on 04-17-2022 Hemoglobin (Bld) [Mass/Vol] 11.5 g/dL 12.0-15.0 [facility] Work Phone: Blood lymphocytes/100 leukoc yteson 04-17-2022 Lymphocytes/100 WBC (Bld) 49.4 % 19-41 [facility] Work Phone: Blood monocytes/100 leukocyt eson 04-17-2022 Monocytes/100 WBC (Bld) 5.6 % 0-10 [facility] Work Phone: Blood platelet mean volumeon 04-17-2022 Platelet mean volume (Bld) [Entitic vol] 9.3 fL 6.2-12.0 [facility] Work Phone: Determination of erythrocyte mean corpuscular volume (MCV)on 04-17-2022 MCV (RBC) [Entitic vol] 91.7 fL 81-99 [facility] Work Phone: Hematocrit Auto (Bld) [Volum e fraction]on 04-17-2022 Hematocrit (Bld) [Volume fraction] 34.4 % 37-47 [facility] Work Phone: Laboratory - Chemistry and C hemistry - challengeon 04-17-2022 CO2 [Moles/Vol] 28.0 mmol/L 21.0-32.0 [facility] Work Phone: Urea nitrogen/Creatinine [Mass ratio] 14.8 mg/mg 10-20 [facility] Work Phone: Laboratory - Hematology and Cell countson 04-17-2022 Erythrocyte distribution width (RBC) [Entitic vol] 46.6 fL 35.1-43.9 [facility] Work Phone: Erythrocyte distribution width (RBC) [Ratio] 13.9 % 11.6-14.6 [facility] Work Phone: Immature granulocytes/100 WBC (Bld) 1.500 % 0.0-0.9 [facility] Work Phone: Comment on above: IG% - Immature Granu locytes (promyelocytes, myelocytes and metamyelocytes) > 1% indicates that a LEFT SHIFT is Present. MCH (RBC) [Entitic mass] 30.7 pg 27.0-32.0 [facility] Work Phone: Nucleated RBC/100 WBC (Bld) [Ratio] 0 % 0-5 [facility] Work Phone: MCHC Auto (RBC) [Mass/Vol]on 04-17-2022 MCHC (RBC) [Mass/Vol] 33.4 g/dL 32-36 [facility] Work Phone: No Panel Informationon 04-17 Estimated GFR (MDRD) Amer 55 mL/min >60 [facility] Work Phone: Comment on above: GFR Calc Estimated GFR (MDRD) Non-Af Amer 45 mL/min >60 [facility] Work Phone: Comment on above: Non- GFR Calc Platelets bldon 04-17-2022 Platelets (Bld) [#/Vol] 244 10*3/uL 150-450 [facility] Work Phone: Serum or plasma calcium tai urement (mass/volume)on 04-17-2022 Calcium [Mass/Vol] 9.1 mg/dL 8.5-10.1 [facility] Work Phone: Serum or plasma creatinine m easurement (mass/volume)on 04-17-2022 Creatinine [Mass/Vol] 1.28 mg/dL 0.55-1.02 [facility] Work Phone: Comment on above: The validity of the calculated GFR & GFRAA in patients over 70 years has not been determined. Clinical correlation is essential. Serum or plasma urea nitroge n measurement (mass/volume)on 04-17-2022 Urea nitrogen [Mass/Vol] 19 mg/dL 7-18 [facility] Work Phone: Thin prep Papanicolaou smear with manual screeningon 04-17-2022 Thin prep Papanicolaou smear with manual screening 8 5-15 [facility] Work Phone: Basophil percentageon 2021 Chloride [Moles/Vol] 99 mmol/L 98-107 [facility] Work Phone: Glucose [Mass/Vol] 59 mg/dL 74-106 [facility] Work Phone: Potassium [Moles/Vol] 4.0 mmol/L 3.5-5.1 [facility] Work Phone: Sodium [Moles/Vol] 135 mmol/L 136-145 [facility] Work Phone: WBC (Bld) [#/Vol] 5.8 10*3/uL 4.4-11.0 [facility] Work Phone: Blood erythrocytes count (nu mber/volume)on 04-13-2022 RBC (Bld) [#/Vol] 3.84 10*6/uL 4.2-5.4 [facility] Work Phone: Blood hemoglobin measurement (mass/volume)on 04-13-2022 Hemoglobin (Bld) [Mass/Vol] 11.6 g/dL 12.0-15.0 [facility] Work Phone: Blood platelet mean volumeon 04-13-2022 Platelet mean volume (Bld) [Entitic vol] 9.6 fL 6.2-12.0 [facility] Work Phone: Determination of erythrocyte mean corpuscular volume (MCV)on 04-13-2022 MCV (RBC) [Entitic vol] 93.2 fL 81-99 [facility] Work Phone: Hematocrit Auto (Bld) [Volum e fraction]on 04-13-2022 Hematocrit (Bld) [Volume fraction] 35.8 % 37-47 [facility] Work Phone: Laboratory - Chemistry and C hemistry - challengeon 04-13-2022 CO2 [Moles/Vol] 28.0 mmol/L 21.0-32.0 [facility] Work Phone: Urea nitrogen/Creatinine [Mass ratio] 13.2 mg/mg 10-20 [facility] Work Phone: Laboratory - Hematology and Cell countson 04-13-2022 Erythrocyte distribution width (RBC) [Entitic vol] 47.1 fL 35.1-43.9 [facility] Work Phone: Erythrocyte distribution width (RBC) [Ratio] 13.9 % 11.6-14.6 [facility] Work Phone: MCH (RBC) [Entitic mass] 30.2 pg 27.0-32.0 [facility] Work Phone: MCHC Auto (RBC) [Mass/Vol]on 04-13-2022 MCHC (RBC) [Mass/Vol] 32.4 g/dL 32-36 [facility] Work Phone: No Panel Informationon 04-13 Estimated GFR (MDRD) Amer 51 mL/min >60 [facility] Work Phone: Comment on above: GFR Calc Estimated GFR (MDRD) Non-Af Amer 42 mL/min >60 [facility] Work Phone: Comment on above: Non- GFR Calc Platelets bldon 04-13-2022 Platelets (Bld) [#/Vol] 284 10*3/uL 150-450 [facility] Work Phone: Serum or plasma calcium tai urement (mass/volume)on 04-13-2022 Calcium [Mass/Vol] 9.3 mg/dL 8.5-10.1 [facility] Work Phone: Serum or plasma creatinine m easurement (mass/volume)on 04-13-2022 Creatinine [Mass/Vol] 1.36 mg/dL 0.55-1.02 [facility] Work Phone: Comment on above: The validity of the calculated GFR & GFRAA in patients over 70 years has not been determined. Clinical correlation is essential. Serum or plasma urea nitroge n measurement (mass/volume)on 04-13-2022 Urea nitrogen [Mass/Vol] 18 mg/dL 7-18 [facility] Work Phone: Thin prep Papanicolaou smear with manual screeningon 04-13-2022 Thin prep Papanicolaou smear with manual screening 8 5-15 [facility] Work Phone: Basophil percentageon 2021 Chloride [Moles/Vol] 100 mmol/L 98-107 [facility] Work Phone: Glucose [Mass/Vol] 74 mg/dL 74-106 [facility] Work Phone: Potassium [Moles/Vol] 3.8 mmol/L 3.5-5.1 [facility] Work Phone: Sodium [Moles/Vol] 134 mmol/L 136-145 [facility] Work Phone: WBC (Bld) [#/Vol] 6.9 10*3/uL 4.4-11.0 [facility] Work Phone: Blood erythrocytes count (nu mber/volume)on 04-06-2022 RBC (Bld) [#/Vol] 3.80 10*6/uL 4.2-5.4 [facility] Work Phone: Blood hemoglobin measurement (mass/volume)on 04-06-2022 Hemoglobin (Bld) [Mass/Vol] 11.6 g/dL 12.0-15.0 [facility] Work Phone: Blood platelet mean volumeon 04-06-2022 Platelet mean volume (Bld) [Entitic vol] 9.2 fL 6.2-12.0 [facility] Work Phone: Determination of erythrocyte mean corpuscular volume (MCV)on 04-06-2022 MCV (RBC) [Entitic vol] 90.8 fL 81-99 [facility] Work Phone: Hematocrit Auto (Bld) [Volum e fraction]on 04-06-2022 Hematocrit (Bld) [Volume fraction] 34.5 % 37-47 [facility] Work Phone: Laboratory - Chemistry and C hemistry - challengeon 04-06-2022 CO2 [Moles/Vol] 27.0 mmol/L 21.0-32.0 [facility] Work Phone: Urea nitrogen/Creatinine [Mass ratio] 14.3 mg/mg 10-20 [facility] Work Phone: Laboratory - Hematology and Cell countson 04-06-2022 Erythrocyte distribution width (RBC) [Entitic vol] 46.6 fL 35.1-43.9 [facility] Work Phone: Erythrocyte distribution width (RBC) [Ratio] 13.9 % 11.6-14.6 [facility] Work Phone: MCH (RBC) [Entitic mass] 30.5 pg 27.0-32.0 [facility] Work Phone: MCHC Auto (RBC) [Mass/Vol]on 04-06-2022 MCHC (RBC) [Mass/Vol] 33.6 g/dL 32-36 [facility] Work Phone: No Panel Informationon 04-06 Estimated GFR (MDRD) Amer 64 mL/min >60 [facility] Work Phone: Comment on above: GFR Calc Estimated GFR (MDRD) Non-Af Amer 53 mL/min >60 [facility] Work Phone: Comment on above: Non- GFR Calc Platelets bldon 04-06-2022 Platelets (Bld) [#/Vol] 309 10*3/uL 150-450 [facility] Work Phone: Serum or plasma calcium tai urement (mass/volume)on 04-06-2022 Calcium [Mass/Vol] 9.3 mg/dL 8.5-10.1 [facility] Work Phone: Serum or plasma creatinine m easurement (mass/volume)on 04-06-2022 Creatinine [Mass/Vol] 1.12 mg/dL 0.55-1.02 [facility] Work Phone: Comment on above: The validity of the calculated GFR & GFRAA in patients over 70 years has not been determined. Clinical correlation is essential. Serum or plasma urea nitroge n measurement (mass/volume)on 04-06-2022 Urea nitrogen [Mass/Vol] 16 mg/dL 7-18 [facility] Work Phone: Thin prep Papanicolaou smear with manual screeningon 04-06-2022 Thin prep Papanicolaou smear with manual screening 7 5-15 [facility] Work Phone: Glucose Glucometer (BldC) [M ass/Vol]on 03-30-2022 Glucose [Mass/Vol] 140 mg/dL 74-106 [facility] Work Phone: Comment on above: MANAGEMENT OF PATIEN T CARE PER NURSING PROTOCOL Basophil percentageon 2021 Chloride [Moles/Vol] 97 mmol/L 98-107 [facility] Work Phone: Glucose [Mass/Vol] 78 mg/dL 74-106 [facility] Work Phone: Potassium [Moles/Vol] 3.5 mmol/L 3.5-5.1 [facility] Work Phone: Sodium [Moles/Vol] 136 mmol/L 136-145 [facility] Work Phone: Laboratory - Chemistry and C hemistry - challengeon 03-29-2022 CO2 [Moles/Vol] 30.0 mmol/L 21.0-32.0 [facility] Work Phone: Urea nitrogen/Creatinine [Mass ratio] 16.3 mg/mg 10-20 [facility] Work Phone: No Panel Informationon 03-29 Estimated Creatinine Clearance Calc 42.35 ml/min [facility] Work Phone: Estimated GFR (MDRD) Amer 70 mL/min >60 [facility] Work Phone: Comment on above: GFR Calc Estimated GFR (MDRD) Non-Af Amer 58 mL/min >60 [facility] Work Phone: Comment on above: Non- GFR Calc Serum or plasma calcium tai urement (mass/volume)on 03-29-2022 Calcium [Mass/Vol] 9.5 mg/dL 8.5-10.1 [facility] Work Phone: Serum or plasma creatinine m easurement (mass/volume)on 03-29-2022 Creatinine [Mass/Vol] 1.04 mg/dL 0.55-1.02 [facility] Work Phone: Comment on above: The validity of the calculated GFR & GFRAA in patients over 70 years has not been determined. Clinical correlation is essential. Serum or plasma urea nitroge n measurement (mass/volume)on 03-29-2022 Urea nitrogen [Mass/Vol] 17 mg/dL 7-18 [facility] Work Phone: Thin prep Papanicolaou smear with manual screeningon 03-29-2022 Thin prep Papanicolaou smear with manual screening 9 5-15 [facility] Work Phone: Absolute lymphocyte counton 03-26-2022 Lymphocytes Auto (Unsp spec) [#/Vol] 2.14 10*3/uL 0.83-4.51 [facility] Work Phone: Basophil percentageon 2021 Basophils/100 WBC (Bld) 0.6 % 0-1 [facility] Work Phone: Eosinophils/100 WBC (Bld) 1.4 % 0-5 [facility] Work Phone: Neutrophils (Bld) [#/Vol] 4.2 10*3/uL 2.0-7.7 [facility] Work Phone: Neutrophils/100 WBC (Bld) 60.0 % 47-70 [facility] Work Phone: WBC (Bld) [#/Vol] 7.0 10*3/uL 4.4-11.0 [facility]: Blood erythrocytes count (nu mber/volume)on 03-26-2022 RBC (Bld) [#/Vol] 3.48 10*6/uL 4.2-5.4 [facility] Work [facility]: Blood hemoglobin measurement (mass/volume)on 03-26-2022 Hemoglobin (Bld) [Mass/Vol] 10.6 g/dL 12.0-15.0 [facility] Work Phone: Blood lymphocytes/100 leukoc yteson 03-26-2022 Lymphocytes/100 WBC (Bld) 30.7 % 19-41 [facility] Work Phone: Blood monocytes/100 leukocyt eson 03-26-2022 Monocytes/100 WBC (Bld) 6.3 % 0-10 [facility] Work Phone: Blood platelet mean volumeon 03-26-2022 Platelet mean volume (Bld) [Entitic vol] 10.3 fL 6.2-12.0 [facility] Work Phone: Determination of erythrocyte mean corpuscular volume (MCV)on 03-26-2022 MCV (RBC) [Entitic vol] 92.8 fL 81-99 [facility] Work Phone: Hematocrit Auto (Bld) [Volum e fraction]on 03-26-2022 Hematocrit (Bld) [Volume fraction] 32.3 % 37-47 [facility] Work Phone: Laboratory - Hematology and Cell countson 03-26-2022 Erythrocyte distribution width (RBC) [Entitic vol] 45.7 fL 35.1-43.9 [facility] Work Phone: Erythrocyte distribution width (RBC) [Ratio] 13.5 % 11.6-14.6 [facility] Work Phone: Immature granulocytes/100 WBC (Bld) 1.000 % 0.0-0.9 [facility] Work Phone: Comment on above: IG% - Immature Granu locytes (promyelocytes, myelocytes and metamyelocytes) > 1% indicates that a LEFT SHIFT is Present. MCH (RBC) [Entitic mass] 30.5 pg 27.0-32.0 [facility] Work Phone: Nucleated RBC/100 WBC (Bld) [Ratio] 0 % 0-5 [facility] Work Phone: MCHC Auto (RBC) [Mass/Vol]on 03-26-2022 MCHC (RBC) [Mass/Vol] 32.8 g/dL 32-36 [facility] Work Phone: Platelets bldon 03-26-2022 Platelets (Bld) [#/Vol] 249 10*3/uL 150-450 [facility] Work Phone: Basophil percentageon 2021 Bilirubin [Mass/Vol] 0.40 mg/dL 0.20-1.00 [facility] Work Phone: Comment on above: For patients on eltr ombopag therapy, use of Dimension [place] TBIL is not recommended. Protein [Mass/Vol] 6.6 g/dL 6.4-8.2 [facility] Work Phone: [phone] Laboratory - Chemistry and C hemistry - challengeon 03-24-2022 ALP [Catalytic activity/Vol] 72 U/L 45-117 [facility] Work Phone: ALT [Catalytic activity/Vol] 56 U/L 13-56 [facility] Work Phone: Globulin (S) [Mass/Vol] 3.7 g/dL 2.2-4.2 [facility] Work Phone: Serum or plasma albumin tai urement (mass/volume)on 03-24-2022 Albumin [Mass/Vol] 2.9 g/dL 3.2-5.0 [facility] Work Phone: Serum or plasma albumin/glob ulin mass ratioon 03-24-2022 Albumin/Globulin [Mass ratio] 0.8 {ratio} 0.9-2.4 [facility] Work Phone: Thin prep Papanicolaou smear with manual screeningon 03-24-2022 Thin prep Papanicolaou smear with manual screening 62 U/L 15-37 [facility] Work Phone: [phone] Laboratory - Chemistry and C hemistry - challengeon 03-21-2022 Magnesium [Mass/Vol] 2.0 mg/dL 1.6-2.6 [facility] Work Phone: Absolute lymphocyte counton 03-20-2022 Lymphocytes Auto (Unsp spec) [#/Vol] 2.56 10*3/uL 0.83-4.51 [facility] Work Phone: [phone] Basophil percentageon 2021 Basophil percentage 25-50 SEEN /hpf 0-5 [facility] Work Phone: Basophils/100 WBC (Bld) 0.6 % 0-1 [facility] Work Phone: Chloride [Moles/Vol] 91 mmol/L 98-107 [facility] Work Phone: Eosinophils/100 WBC (Bld) 0.4 % 0-5 [facility] Work Phone: Glucose [Mass/Vol] 489 mg/dL 74-106 [facility] Work Phone: Comment on above: Glucose result great er than or equal to 200 mg/dLsuggests DIABETES MELLITUS per A.D.A. criteria. Neutrophils (Bld) [#/Vol] 3.8 10*3/uL 2.0-7.7 [facility] Work Phone: Neutrophils/100 WBC (Bld) 56.5 % 47-70 [facility] Work Phone: Potassium [Moles/Vol] 3.6 mmol/L 3.5-5.1 [facility] Work Phone: Sodium [Moles/Vol] 128 mmol/L 136-145 [facility] Work Phone: WBC (Bld) [#/Vol] 6.8 10*3/uL 4.4-11.0 [facility] Work Phone: Bilirubin Test strip Ql (U)o n 03-20-2022 Bilirubin Ql (U) Negative Negative [facility] Work Phone: Blood erythrocytes count (nu mber/volume)on 03-20-2022 RBC (Bld) [#/Vol] 4.08 10*6/uL 4.2-5.4 [facility] [facility] Work Phone: Blood hemoglobin measurement (mass/volume)on 03-20-2022 Hemoglobin (Bld) [Mass/Vol] 12.9 g/dL 12.0-15.0 [facility] Work Phone: Blood lymphocytes/100 leukoc yteson 03-20-2022 Lymphocytes/100 WBC (Bld) 37.6 % 19-41 [facility] Work Phone: Blood monocytes/100 leukocyt eson 03-20-2022 Monocytes/100 WBC (Bld) 4.3 % 0-10 [facility] Work Phone: Blood platelet mean volumeon 03-20-2022 Platelet mean volume (Bld) [Entitic vol] 9.7 fL 6.2-12.0 [facility] Work Phone: Determination of erythrocyte mean corpuscular volume (MCV)on 03-20-2022 MCV (RBC) [Entitic vol] 87.0 fL 81-99 [facility] Work Phone: Glucose Glucometer (BldC) [M ass/Vol]on 03-20-2022 Glucose [Mass/Vol] 420 mg/dL 74-106 [facility] Work Phone: Comment on above: MANAGEMENT OF PATIEN T CARE PER NURSING PROTOCOL Hematocrit Auto (Bld) [Volum e fraction]on 03-20-2022 Hematocrit (Bld) [Volume fraction] 35.5 % 37-47 [facility] Work Phone: Ketones Test strip Ql (U)on 03-20-2022 Ketones Ql (U) Negative Negative [facility] Work Phone: Laboratory - Chemistry and C hemistry - challengeon 03-20-2022 CO2 [Moles/Vol] 27.0 mmol/L 21.0-32.0 [facility] Work Phone: Urea nitrogen/Creatinine [Mass ratio] 11.0 mg/mg 10-20 [facility] Work Phone: Laboratory - Hematology and Cell countson 03-20-2022 Erythrocyte distribution width (RBC) [Entitic vol] 41.2 fL 35.1-43.9 [facility] Work Phone: Erythrocyte distribution width (RBC) [Ratio] 13.0 % 11.6-14.6 [facility] Work Phone: Immature granulocytes/100 WBC (Bld) 0.600 % 0.0-0.9 [facility] Work Phone: Comment on above: IG% - Immature Granu locytes (promyelocytes, myelocytes and metamyelocytes) > 1% indicates that a LEFT SHIFT is Present. MCH (RBC) [Entitic mass] 31.6 pg 27.0-32.0 [facility] Work Phone: Nucleated RBC/100 WBC (Bld) [Ratio] 0 % 0-5 [facility] Work Phone: MCHC Auto (RBC) [Mass/Vol]on 03-20-2022 MCHC (RBC) [Mass/Vol] 36.3 g/dL 32-36 [facility] Work Phone: Mucus LM Ql (Urine sed)on Mucus Ql (Urine sed) 0 SEEN /hpf [facility] Work Phone: Nitrite Test strip Ql (U)on 03-20-2022 Nitrite Ql (U) Negative Negative [facility] Work Phone: No Panel Informationon 03-20 Estimated Creatinine Clearance Calc 34.68 ml/min [facility] Work Phone: Estimated GFR (MDRD) Amer 56 mL/min >60 [facility] Work Phone: Comment on above: GFR Calc Estimated GFR (MDRD) Non-Af Amer 46 mL/min >60 [facility] Work Phone: Comment on above: Non- GFR Calc Platelets bldon 03-20-2022 Platelets (Bld) [#/Vol] 263 10*3/uL 150-450 [facility] Work Phone: Protein Test strip Ql (U)on 03-20-2022 Protein Ql (U) 30 mg/dl Negative [facility] Work Phone: Serum or plasma calcium tai urement (mass/volume)on 03-20-2022 Calcium [Mass/Vol] 9.1 mg/dL 8.5-10.1 [facility] Work Phone: Serum or plasma creatinine m easurement (mass/volume)on 03-20-2022 Creatinine [Mass/Vol] 1.27 mg/dL 0.55-1.02 [facility] Work Phone: Comment on above: The validity of the calculated GFR & GFRAA in patients over 70 years has not been determined. Clinical correlation is essential. Serum or plasma urea nitroge n measurement (mass/volume)on 03-20-2022 Urea nitrogen [Mass/Vol] 14 mg/dL 7-18 [facility] Work Phone: Squamous epithelial cells de tection in urine sediment by light microscopyon 03-20-2022 Epithelial cells.squamous LM Ql (Urine sed) 5-10 SEEN /hpf 5-10 [facility] Work Phone: Thin prep Papanicolaou smear with manual screeningon 03-20-2022 Thin prep Papanicolaou smear with manual screening 10 5-15 [facility] Work Phone: Urine blood detectionon 02-23 RBC Ql (U) 10 /ul Negative [facility] Work Phone: RBC Ql (U) 0 SEEN /hpf 0-5 [facility] Work Phone: Urine clarityon 03-20-2022 Clarity (U) Clear Clear [facility] Work Phone: Urine color determinationon 03-20-2022 Color (U) Yellow Yellow [facility] Work Phone: Urine glucose detectionon Glucose Ql (U) 1000 mg/dl Normal [facility] Work Phone: Urine leukocyte esterase det ection by dipstickon 03-20-2022 Leukocyte esterase Test strip Ql (U) 100 /ul Negative [facility] Work Phone: Urine pHon 03-20-2022 pH (U) 6.0 [pH] 5.0 - 8.0 [facility] Work Phone: Urine sediment bacteria coun t by microscopy (number/high power field)on 03-20-2022 Bacteria LM.HPF (Urine sed) [#/Area] 2 /[HPF] None Seen [facility] Work Phone: Urine specific gravity measu rementon 03-20-2022 Specific gravity (U) [Rel density] 1.015 1.002-1.03 0 [facility] Work Phone: Urobilinogen Auto test strip Ql (U)on 03-20-2022 Urobilinogen Ql (U) Normal mg/dl Normal [facility] Work Phone: Whole blood hemoglobin A1c/t otal hemoglobin ratio (mass fraction)on 03-20-2022 HbA1c (Bld) [Mass fraction] 13.1 % 3.8-5.6 [facility] Work Phone: Comment on above: Normal < 5.7 % Predi abetic 5.7 - 6.4 % Diabetic >or= 6.5 % Please note range changes. Absolute lymphocyte counton 02-24-2022 Lymphocytes Auto (Unsp spec) [#/Vol] 1.98 10*3/uL 0.83-4.51 [facility] Work Phone: Basophil percentageon 2021 Basophils/100 WBC (Bld) 0.8 % 0-1 [facility] Work Phone: Bilirubin [Mass/Vol] 0.50 mg/dL 0.20-1.00 [facility] Work Phone: Comment on above: For patients on eltr ombopag therapy, use of Dimension [place] TBIL is not recommended. Chloride [Moles/Vol] 87 mmol/L 98-107 [facility] Work Phone: Eosinophils/100 WBC (Bld) 0.2 % 0-5 [facility] Work Phone: Glucose [Mass/Vol] 569 mg/dL 74-106 [facility] Work Phone: Comment on above: Critical Result(s) C alled at: 14:47:48 02/24/2022 by: Lela Delacruz. Results read back by same.Glucose result greater than or equal to 200 mg/dLsuggests DIABETES MELLITUS per A.D.A. criteria. Neutrophils (Bld) [#/Vol] 3.9 10*3/uL 2.0-7.7 [facility] Work Phone: Neutrophils/100 WBC (Bld) 62.4 % 47-70 [facility] Work Phone: Potassium [Moles/Vol] 3.8 mmol/L 3.5-5.1 [facility]: Protein [Mass/Vol] 7.6 g/dL 6.4-8.2 [facility]: Sodium [Moles/Vol] 127 mmol/L 136-145 [facility]: WBC (Bld) [#/Vol] 6.3 10*3/uL 4.4-11.0 [facility] Work Phone: Blood erythrocytes count (nu mber/volume)on 02-24-2022 RBC (Bld) [#/Vol] 4.08 10*6/uL 4.2-5.4 [facility]: Blood hemoglobin measurement (mass/volume)on 02-24-2022 Hemoglobin (Bld) [Mass/Vol] 12.7 g/dL 12.0-15.0 [facility] Work Phone: Blood lymphocytes/100 leukoc yteson 02-24-2022 Lymphocytes/100 WBC (Bld) 31.4 % 19-41 [facility] Work Phone: Blood monocytes/100 leukocyt eson 02-24-2022 Monocytes/100 WBC (Bld) 4.4 % 0-10 [facility] Work Phone: Blood platelet mean volumeon 02-24-2022 Platelet mean volume (Bld) [Entitic vol] 9.7 fL 6.2-12.0 [facility] Work Phone: Determination of erythrocyte mean corpuscular volume (MCV)on 02-24-2022 MCV (RBC) [Entitic vol] 88.0 fL 81-99 [facility] Work Phone: Glucose Glucometer (BldC) [M ass/Vol]on 02-24-2022 Glucose [Mass/Vol] 407 mg/dL 74-106 [facility] Work Phone: Comment on above: MANAGEMENT OF PATIEN T CARE PER NURSING PROTOCOL Hematocrit Auto (Bld) [Volum e fraction]on 02-24-2022 Hematocrit (Bld) [Volume fraction] 35.9 % 37-47 [facility] Work Phone: Laboratory - Chemistry and C hemistry - challengeon 02-24-2022 ALP [Catalytic activity/Vol] 93 U/L 45-117 [facility] Work Phone: ALT [Catalytic activity/Vol] 56 U/L 13-56 [facility] Work Phone: CO2 [Moles/Vol] 27.0 mmol/L 21.0-32.0 [facility] Work Phone: Globulin (S) [Mass/Vol] 4.0 g/dL 2.2-4.2 [facility] Work Phone: Urea nitrogen/Creatinine [Mass ratio] 8.1 mg/mg 10-20 [facility] Work Phone: Laboratory - Hematology and Cell countson 02-24-2022 Erythrocyte distribution width (RBC) [Entitic vol] 44.8 fL 35.1-43.9 [facility] Work Phone: Erythrocyte distribution width (RBC) [Ratio] 14.0 % 11.6-14.6 [facility] Work Phone: Immature granulocytes/100 WBC (Bld) 0.800 % 0.0-0.9 [facility] Work Phone: Comment on above: IG% - Immature Granu locytes (promyelocytes, myelocytes and metamyelocytes) > 1% indicates that a LEFT SHIFT is Present. MCH (RBC) [Entitic mass] 31.1 pg 27.0-32.0 [facility] Work Phone: Nucleated RBC/100 WBC (Bld) [Ratio] 0 % 0-5 [facility] Work Phone: MCHC Auto (RBC) [Mass/Vol]on 02-24-2022 MCHC (RBC) [Mass/Vol] 35.4 g/dL 32-36 [facility] Work Phone: No Panel Informationon 02-24 Estimated Creatinine Clearance Calc 29.76 ml/min [facility] Work Phone: Estimated GFR (MDRD) Amer 47 mL/min >60 [facility] Work Phone: Comment on above: GFR Calc Estimated GFR (MDRD) Non-Af Amer 38 mL/min >60 [facility] Work Phone: Comment on above: Non- GFR Calc Platelets bldon 02-24-2022 Platelets (Bld) [#/Vol] 231 10*3/uL 150-450 [facility] Work Phone: Serum or plasma albumin tai urement (mass/volume)on 02-24-2022 Albumin [Mass/Vol] 3.6 g/dL 3.2-5.0 [facility] Work Phone: Serum or plasma albumin/glob ulin mass ratioon 02-24-2022 Albumin/Globulin [Mass ratio] 0.9 {ratio} 0.9-2.4 [facility] Work Phone: Serum or plasma calcium tai urement (mass/volume)on 02-24-2022 Calcium [Mass/Vol] 8.3 mg/dL 8.5-10.1 [facility] Work Phone: Serum or plasma creatinine m easurement (mass/volume)on 02-24-2022 Creatinine [Mass/Vol] 1.48 mg/dL 0.55-1.02 [facility] Work Phone: Comment on above: The validity of the calculated GFR & GFRAA in patients over 70 years has not been determined. Clinical correlation is essential. Serum or plasma urea nitroge n measurement (mass/volume)on 02-24-2022 Urea nitrogen [Mass/Vol] 12 mg/dL 7-18 [facility] Work Phone: Thin prep Papanicolaou smear with manual screeningon 02-24-2022 Thin prep Papanicolaou smear with manual screening 45 U/L 15-37 [facility] Work Phone: Thin prep Papanicolaou smear with manual screening 13 5-15 [facility] Work Phone: Absolute lymphocyte counton 01-13-2022 Lymphocytes Auto (Unsp spec) [#/Vol] 2.40 10*3/uL 0.83-4.51 [facility] Work Phone: Amorphous sediment detection in urine sediment by light microscopyon 01-13-2022 Amorphous sediment LM Ql (Urine sed) 1+ URATE [facility] Work Phone: Basophil percentageon 2021 Basophil percentage 25-50 SEEN /hpf 0-5 [facility] Work Phone: Basophils/100 WBC (Bld) 0.4 % 0-1 [facility] Work Phone: Chloride [Moles/Vol] 89 mmol/L 98-107 [facility] Work Phone: Eosinophils/100 WBC (Bld) 0.3 % 0-5 [facility] Work Phone: Glucose [Mass/Vol] 496 mg/dL 74-106 [facility] Work Phone: Comment on above: Glucose result great er than or equal to 200 mg/dLsuggests DIABETES MELLITUS per A.D.A. criteria. Neutrophils (Bld) [#/Vol] 4.8 10*3/uL 2.0-7.7 [facility] Work Phone: Neutrophils/100 WBC (Bld) 63.1 % 47-70 [facility] Work Phone: Potassium [Moles/Vol] 4.2 mmol/L 3.5-5.1 [facility] Work Phone: Sodium [Moles/Vol] 126 mmol/L 136-145 [facility] Work Phone: Comment on above: Critical Result(s) C alled at: 15:44:11 01/13/2022 by: AUSTYN ESTRELLA. to debra lynch rn ed Results read back by same. WBC (Bld) [#/Vol] 7.6 10*3/uL 4.4-11.0 [facility] Work Phone: Bilirubin Test strip Ql (U)o n 01-13-2022 Bilirubin Ql (U) Negative Negative [facility] Work Phone: Blood erythrocytes count (nu mber/volume)on 01-13-2022 RBC (Bld) [#/Vol] 4.55 10*6/uL 4.2-5.4 [facility] Work Phone: Blood hemoglobin measurement (mass/volume)on 01-13-2022 Hemoglobin (Bld) [Mass/Vol] 14.0 g/dL 12.0-15.0 [facility] Work Phone: Blood lymphocytes/100 leukoc yteson 01-13-2022 Lymphocytes/100 WBC (Bld) 31.7 % 19-41 [facility] Work Phone: Blood monocytes/100 leukocyt eson 01-13-2022 Monocytes/100 WBC (Bld) 4.0 % 0-10 [facility] Work Phone: Blood platelet mean volumeon 01-13-2022 Platelet mean volume (Bld) [Entitic vol] 9.8 fL 6.2-12.0 [facility] Work Phone: Culture, urineon 01-13-2022 Bacteria identified Cx Nom (U) Negative [facility] Work Phone: Bacteria identified Cx Nom (U) Mixed Gram Pos & Gram Neg Org [facility] Work Phone: Determination of erythrocyte mean corpuscular volume (MCV)on 01-13-2022 MCV (RBC) [Entitic vol] 82.6 fL 81-99 [facility] Work Phone: Glucose Glucometer (BldC) [M ass/Vol]on 01-13-2022 Glucose [Mass/Vol] 361 mg/dL 74-106 [facility] Work Phone: Comment on above: MANAGEMENT OF PATIEN T CARE PER NURSING PROTOCOL Hematocrit Auto (Bld) [Volum e fraction]on 01-13-2022 Hematocrit (Bld) [Volume fraction] 37.6 % 37-47 [facility] Work Phone: Ketones Test strip Ql (U)on 01-13-2022 Ketones Ql (U) Negative Negative [facility] Work Phone: Laboratory - Chemistry and C hemistry - challengeon 01-13-2022 CO2 [Moles/Vol] 28.0 mmol/L 21.0-32.0 [facility] Work Phone: Urea nitrogen/Creatinine [Mass ratio] 11.5 mg/mg 10-20 [facility] Work Phone: Laboratory - Hematology and Cell countson 01-13-2022 Erythrocyte distribution width (RBC) [Entitic vol] 42.2 fL 35.1-43.9 [facility] Work Phone: Erythrocyte distribution width (RBC) [Ratio] 14.0 % 11.6-14.6 [facility] Work Phone: Immature granulocytes/100 WBC (Bld) 0.500 % 0.0-0.9 [facility] Work Phone: Comment on above: IG% - Immature Granu locytes (promyelocytes, myelocytes and metamyelocytes) > 1% indicates that a LEFT SHIFT is Present. MCH (RBC) [Entitic mass] 30.8 pg 27.0-32.0 [facility] Work Phone: Nucleated RBC/100 WBC (Bld) [Ratio] 0 % 0-5 [facility] Work Phone: MCHC Auto (RBC) [Mass/Vol]on 01-13-2022 MCHC (RBC) [Mass/Vol] 37.2 g/dL 32-36 [facility] Work Phone: Mucus LM Ql (Urine sed)on Mucus Ql (Urine sed) 0 SEEN /hpf [facility] Work Phone: Nitrite Test strip Ql (U)on 01-13-2022 Nitrite Ql (U) Negative Negative [facility] Work Phone: No Panel Informationon 01-13 Estimated Creatinine Clearance Calc 28.06 ml/min [facility] Work Phone: Estimated GFR (MDRD) Amer 43 mL/min >60 [facility] Work Phone: Comment on above: GFR Calc Estimated GFR (MDRD) Non-Af Amer 36 mL/min >60 [facility] Work Phone: Comment on above: Non- GFR Calc Insulin Level 32.1 mU/L 2.6-37.6 [facility] Work Phone: Comment on above: Please Note: INSULIN METHOD & REFERENCE RANGE CHANGEEffective 11/04/2017. Platelets bldon 01-13-2022 Platelets (Bld) [#/Vol] 267 10*3/uL 150-450 [facility] Work Phone: Protein Test strip Ql (U)on 01-13-2022 Protein Ql (U) 30 mg/dl Negative [facility] Work Phone: Serum or plasma acetone tai urement (mass/volume)on 01-13-2022 Acetone [Mass/Vol] Negative NEG [facility] Work Phone: Serum or plasma calcium tai urement (mass/volume)on 01-13-2022 Calcium [Mass/Vol] 9.8 mg/dL 8.5-10.1 [facility] Work Phone: Serum or plasma creatinine m easurement (mass/volume)on 01-13-2022 Creatinine [Mass/Vol] 1.57 mg/dL 0.55-1.02 [facility] Work Phone: Comment on above: The validity of the calculated GFR & GFRAA in patients over 70 years has not been determined. Clinical correlation is essential. Serum or plasma urea nitroge n measurement (mass/volume)on 01-13-2022 Urea nitrogen [Mass/Vol] 18 mg/dL 7-18 [facility] Work Phone: Squamous epithelial cells de tection in urine sediment by light microscopyon 01-13-2022 Epithelial cells.squamous LM Ql (Urine sed) 0-5 SEEN /hpf 5-10 [facility] Work Phone: Thin prep Papanicolaou smear with manual screeningon 01-13-2022 Thin prep Papanicolaou smear with manual screening 9 5-15 [facility] Work Phone: Urine blood detectionon 12-24-2021 RBC Ql (U) 10 /ul Negative [facility] Work Phone: RBC Ql (U) 0-5 SEEN /hpf 0-5 [facility] Work Phone: Urine clarityon 01-13-2022 Clarity (U) Sl. Cloudy Clear [facility] Work Phone: Urine color determinationon 01-13-2022 Color (U) Yellow Yellow [facility] Work Phone: Urine glucose detectionon Glucose Ql (U) 1000 mg/dl Normal [facility] Work Phone: Urine leukocyte esterase det ection by dipstickon 01-13-2022 Leukocyte esterase Test strip Ql (U) 500 /ul Negative [facility] Work Phone: Urine pHon 01-13-2022 pH (U) 5.0 [pH] 5.0 - 8.0 [facility] Work Phone: Urine sediment bacteria coun t by microscopy (number/high power field)on 01-13-2022 Bacteria LM.HPF (Urine sed) [#/Area] 0 /[HPF] None Seen [facility] Work Phone: Urine specific gravity measu rementon 01-13-2022 Specific gravity (U) [Rel density] 1.015 1.002-1.03 0 [facility] Work Phone: Urobilinogen Auto test strip Ql (U)on 01-13-2022 Urobilinogen Ql (U) Normal mg/dl Normal [facility] Work Phone: Gram stain for investigation of transfusion reactionon 09-27-2021 Microscopic observation Gram stain Nom (Unsp spec) [facility] Work Phone: .Auto Diffon 12-13-2019 Ammonia (P) [Mass/Vol] 0.30 10 3/mcL Normal 0.15-1.00 [facility] ([place]) Comment on above: Performed By: #### Taco FR, BMP #### [place] [address] #### CBC, ADIFF, ANEU #### [address] [address] Basophils (Bld) [#/Vol] 0.00 10 3/mcL Normal 0.00-0.19 [facility] ([place]) Comment on above: Performed By: #### Taco FR, BMP #### [place] [address] #### CBC, ADIFF, ANEU #### [address] [address] Basophils/100 WBC (Bld) 0.5 % Normal 0.0-2.5 A [facility] ([place]) Comment on above: Performed By: #### Taco FR, BMP #### [place] [address] #### CBC, ADIFF, ANEU #### [address] [address] Eosinophils (Bld) [#/Vol] 0.00 10 3/mcL Normal 0.00-0. 40 [facility] ([place]) Comment on above: Performed By: #### G FR, BMP #### [place] [address] #### CBC, ADIFF, ANEU #### [address] [address] Eosinophils/100 WBC (Bld) 0.8 % Normal 0.0-7.0 [facility] ([place]) Comment on above: Performed By: #### G FR, BMP #### [address] [address] #### CBC, ADIFF, ANEU #### [address] [address] Lymphocytes (Bld) [#/Vol] 2.00 10 3/mcL Normal 0.77-3. 85 [facility] ([place]) Comment on above: Performed By: #### G FR, BMP #### [place] [address] #### CBC, ADIFF, ANEU #### [address] [address] Lymphocytes/100 WBC (Bld) 33.6 % Normal 10.0-50.0 [facility] ([place]) Comment on above: Performed By: #### G FR, BMP #### [place] [address] #### CBC, ADIFF, ANEU #### [address] [address] Monocytes/100 WBC (Bld) 4.7 % Normal 1.7-13.0 A [facility] ([place]) Comment on above: Performed By: #### G FR, BMP #### [place] [address] #### CBC, ADIFF, ANEU #### [address] [address] Neutrophils/100 WBC (Bld) 60.4 % Normal 37.0-80.0 [facility] ([place]) Comment on above: Performed By: #### G FR, BMP #### [place] [address] #### CBC, ADIFF, ANEU #### [address] [address] .GFRon 12-13-2019 GFR 54 ml/min/1.73sqm Normal [facility] ([place]) Comment on above: Result [...] mL/min/1.73 square meters Performed By: #### Taco PEARCE, BMP #### [place] [address] #### CBC, ADIFF, ANEU #### [address] [address] GFR Non- 45 ml/min/1.73sqm Normal [facility] ([place]) Comment on above: Result Comment: GFR Population [...] mL/min/1.73 square meters Performed By: #### Taco PEARCE, BMP #### [place] [address] #### CBC, ADIFF, ANEU #### [address] [address] .NEUABSon 12-13-2019 Neutrophils (Bld) [#/Vol] 3.50 10 3/mcL Normal 2.85-6. 16 [facility] ([place]) Comment on above: Performed By: #### Taco PEARCE, BMP #### [place] [address] #### CBC, ADIFF, ANEU #### [address] [place] [address] .Urinalysis Microscopic (AO) on 12-13-2019 RBC (U) [#/Vol] LOADED Abnormal None Seen [facility] ([place]) Comment on above: Performed By: #### U SAMIRA, UA #### [place] [address] UA Squam Epithelial 0-5 Abnormal None Seen [facility] ([place]) Comment on above: Performed By: #### U SAMIRA, UA #### [place] [address] UA WBC 0-5 Abnormal None Seen [facility] ([place]) Comment on above: Performed By: #### Christi HOGAN UA #### [place] [address] BMPon 12-13-2019 Calcium [Mass/Vol] 9.2 mg/dL Normal 8.4-10.2 [facility] ([place]) Comment on above: Performed By: #### Taco FR, BMP #### [place] [address] #### CBC, ADIFF, ANEU #### [place] [address] Chloride [Moles/Vol] 90 mmol/L Low 98-107 [facility] ([place]) Comment on above: Performed By: #### Taco FR, BMP #### [place] [address] #### CBC, ADIFF, ANEU #### [address] [address] CO2 [Moles/Vol] 25 mmol/L Normal 22-29 [facility] ([place]) Comment on above: Performed By: #### Taco FR, BMP #### [place] [address] #### CBC, ADIFF, ANEU #### [address] [address] Creatinine [Mass/Vol] 1.24 mg/dL High 0.55-1.02 [facility] ([place]) Comment on above: Performed By: #### G FR, BMP #### [address] [address] #### CBC, ADIFF, ANEU #### [address] [address] Electrolyte Balance 11.0 mEq/L Normal [facility] ([place]) Comment on above: Performed By: #### G FR, BMP #### [address] [address] #### CBC, ADIFF, ANEU #### [address] [address] Glucose [Mass/Vol] 697 mg/dL Critically abnormal 70-105 [facility] ([place]) Comment on above: Performed By: #### G FR, BMP #### [address] [address] #### CBC, ADIFF, ANEU #### [address] [address] Potassium [Moles/Vol] 4.0 mmol/L Normal 3.5-5.1 [facility] ([place]) Comment on above: Performed By: #### Taco FR, BMP #### [address] [address] #### CBC, ADIFF, ANEU #### [address] [address] Sodium [Moles/Vol] 126 mmol/L Low 136-145 [facility] ([place]) Comment on above: Performed By: #### G FR, BMP #### [address] [address] #### CBC, ADIFF, ANEU #### [address] [address] Urea nitrogen [Mass/Vol] 17 mg/dL Normal 7-18 [facility] ([place]) Comment on above: Performed By: #### G FR, BMP #### [address] [address] #### CBC, ADIFF, ANEU #### [address] [address] Urea nitrogen/Creatinine [Mass ratio] 14 ratio Normal 7-27 [facility] ([place]) Comment on above: Performed By: #### G FR, BMP #### [address] [address] #### CBC, ADIFF, ANEU #### [address] [address] CBCon 12-13-2019 Erythrocyte distribution width (RBC) [Ratio] 12.7 % Normal 11.5-14.5 [facility] ([place]) Comment on above: Performed By: #### G FR, BMP #### [address] [address] #### CBC, ADIFF, ANEU #### [address] [address] Hematocrit (Bld) [Volume fraction] 41.3 % Normal 37.0-47.0 [facility] ([place]) Comment on above: Performed By: #### Taco FR, BMP #### [place] [address] #### CBC, ADIFF, ANEU #### [address] [address] Hemoglobin (Bld) [Mass/Vol] 13.9 G/dL Normal 12.0-16.0 [facility] ([place]) Comment on above: Performed By: #### G FR, BMP #### [place] [address] #### CBC, ADIFF, ANEU #### [address] [address] MCH (RBC) [Entitic mass] 30.5 pg Normal 27.0-31.2 [facility] ([place]) Comment on above: Performed By: #### G FR, BMP #### [address] [address] #### CBC, ADIFF, ANEU #### [address] [address] MCHC (RBC) [Mass/Vol] 33.7 G/dL Normal 33.0-37.0 [facility] ([place]) Comment on above: Performed By: #### G FR, BMP #### [address] [address] #### CBC, ADIFF, ANEU #### [address] [address] MCV (RBC) [Entitic vol] 90.5 fL Normal 80.0-94.0 A [facility] ([place]) Comment on above: Performed By: #### G FR, BMP #### [place] [address] #### CBC, ADIFF, ANEU #### [address] [address] Platelet mean volume (Bld) [Entitic vol] 7.9 fL Normal 7.4-10.4 [facility] ([place]) Comment on above: Performed By: #### Tcao FR, BMP #### [place] [address] #### CBC, ADIFF, ANEU #### [address] [address] Platelets (Bld) [#/Vol] 216 10 3/mcL Normal 130-400 [facility] ([place]) Comment on above: Performed By: #### Taco FR, BMP #### [place] [address] #### CBC, ADIFF, ANEU #### [address] [address] RBC (Bld) [#/Vol] 4.56 10 6/mcL Normal 4.20-5.40 [facility] ([place] Comment on above: Performed By: #### G FR, BMP #### [place] [address] #### CBC, ADIFF, ANEU #### [address] [address] WBC (Bld) [#/Vol] 5.80 10 3/mcL Normal 4.60-10.80 [facility] ([place] Comment on above: Performed By: #### G FR, BMP #### [address] [address] #### CBC, ADIFF, ANEU #### [address] [address] [address] ABDOMEN/PELVIS W/O CONTRA STon 12-13-2019 CT [...] 12/13/2019 3:36:55 PM Ordering Provider:Fermin Turner Normal [facility] ([place]) UAon 12-13-2019 Color (U) Light yellow Normal [facility] ([place] Comment on above: Performed By: #### U JEREMI HOGAN #### [address] [address] Glucose (U) [Mass/Vol] 500 mg/dL Abnormal Negative [facility] ([place]) Comment on above: Performed By: #### U JEREMI HOGAN #### [address] [address] Ketones Ql (U) Negative Normal Negative [facility] ([place] Comment on above: Performed By: #### U AMICAO, UA #### [place] [address] UA Appear Slightly Cloudy Abnormal Clear [facility] ([place] Comment on above: Performed By: #### U AMICAO, UA #### [place] [address] UA Blood Large Abnormal Negative [facility] ([place] Comment on above: Performed By: #### U AMICAO, UA #### [place] [address] UA Leuk Est Negative Normal Negative [facility] ([place] Comment on above: Performed By: #### U AMICAO, UA #### [place] [address] UA Nitrite Negative Normal Negative [facility] ([place] Comment on above: Performed By: #### U AMICAO, UA #### [place] [address] UA pH 5.0 Normal 5.0 - 8.0 [facility] ([place] Comment on above: Performed By: #### U AMICAO, UA #### [place] [address] UA Protein Negative Normal Negative [facility] ([place] Comment on above: Performed By: #### U AMICAO, UA #### [place] [address] UA Spec Grav <=1.005 Abnormal 1.015-1.02 5 [facility] ([place] Comment on above: Performed By: #### U AMICAO, UA #### [place] [address] UA Specimen Type Clean Catch Normal [facility] ([place] Comment on above: Performed By: #### U AMICAO, UA #### [place] [address] UA Urobilinogen 0.2 E.U./dL Normal 0.2-1.0 [facility] ([place] Comment on above: Performed By: #### U SAMIRA UA #### [facility] [address] [place] [address] Urobilinogen Qn (U) Negative Normal Negative [facility] ([place] Comment on above: Performed By: #### U SAMIRA, UA #### [facility] [address] [place] [address] Jovita 09-05-2019 CNPN Telephone (PREANME) TERRANCE BRAR ([id number]) 1965 F Date Time Provider Department 09/05/19 CAITY BURDEN ([employer]) PREANME During your visit today, we recorded the following information about you: Caity Burden APRN.DEYANIRA 09/05/2019 9:53 AM Signed Notifying surgeon's office and PCP, pt's pre-op A1c 14.4. Pt is a IDDM, last A1c 13.0 07/13/2019. Please advise. She is scheduled for LAPAROSCOPIC INCISIONAL RECURRENT HERNIA REPAIR W/ MESH REDUCIBLE ADULT With Dr. Dee 09/11/2019. Caity Burden APRN.PRACTICE ARCHITECT 09/05/2019 9:59 AM Signed Also noted to be have TSH level of 38.7, calcium 11.4, sodium 130. Coco Nur CMA, SARITA 09/05/2019 10:20 AM Addendum Patient was discharged from practice due to many no shows. She no longer has a PCP. See phone encounter on 07/05/2019. BESSIE No APRN.PRACTICE ARCHITECT 09/05/2019 2:46 PM Signed Spoke with pt and reviewed abnormal labs and that pt no longer has a [facility] PCP due to no shows. Encouraged pt to establish with another PCP [facility] to have the labs addressed and medication adjustments. Connie Colon PA-C 09/06/2019 2:26 PM Signed Anam Flanagan (Jed) Bertram; Anitha Domingo LPN; eRd Garcia 18 hours ago (7:57 PM) The patient's procedure will need to be postponed until these issues are corrected. Thanks Rich Routing comment Surgery cancelled, see separate telephone encounter initiated 08/10/19 Carlee Valencia III MD 09/11/2019 1:24 PM Signed notify patient of fact her diabetes mellitus is totally out of control which disqualifies her from this surgery. Controlling her diabetes mellitus will require [facility] commitment on her part to keep appointments, [...] Signed Pt returns call, agreeable to Dr. Valencia recommendations and would like to come back to is practice. Offered appt with Dr. Valencia 09/18/19 at 4:20pm. Unable to schedule pt due to dismissal. Carlee Valencia III MD 09/11/2019 4:36 PM Signed Please check with Pam Deleon as to how this appt can occur in [facility] Carlee Valencia III MD Allergies As of Date: 09/05/2019 Noted Allergy Reaction CIPROFLOXACIN 10/05/2008 7 - Swelling CODEINE 05/17/2014 4 - Hives 9 - Itching IBUPROFEN 04/08/2007 4 - Hives METFORMIN 06/25/2017 5 - Intolerance Comments: GI UPSET NAPROXYN (NAPROXEN) 04/08/2007 4 - Hives PENICILLINS 04/08/2007 4 - Hives ULTRAM (TRAMADOL HCL) 04/08/2007 Comments: facial/ throat swelling Date Reviewed: 09/04/2019 Reviewed by: Caity Flanagan (Jed) Bertram - Fully Assessed Reason for Visit: [...] General Medical Examination at a [facility]*12/10/2008 06/03/2015 More... Benign neoplasm of colon [...] Status:Closed by [facility]OC[facility] NUR C[facility]11[facility] Letter Text [id number] [facility] [address]Numt: [phone] Mxrulay E. Shafer, Armando 2017Terrance Brar[address] [facility] [id number]/Dear Terrance Brar,We missed seeing you for your scheduled appointment with Dr. Calixto on03/08/18 at the [facility].Our goal is to offer the best possible care to our patients, so we areconcerned when you are unable to keep a scheduled appointment.Please call us at [phone] so that we can reschedule your appointment fora day and time that will work for you.If you find it difficult to keep your appointment, please notify our officeat least 24 hours in advance so that we may reschedule your appointment.We are glad that you have chosen [facility] for yourcardiovascular needs and hope to continue serving you in the future.Sincerely,Mary Alice Calixto MD(Signed electronically to expedite mailing) Normal [facility] Office Visit: UC: yesica Butler OM 07-28-2017 Fall risk assessment No Invalid Interpretation Code [facility] Work Phone: Protein mass conc yes Invalid Interpretation Code [facility] Work Phone: Protein mass conc Done Invalid Interpretation Code [facility] Work Phone: Tobacco smoking status NHIS Current every day smoker Invalid Interpretation Code [facility] Work Phone: Lab Report: Culture, Urineon 02-22-2015 CUUR . Invalid Interpretation Code [facility] Work Phone: Lab Report: (P) Urinalysis, Completeon 02-20-2015 Specific gravity Refractometry Relative Density (U) 1.015 Invalid Interpretation Code 1.002-1.03 0 [facility] Work Phone: Lab Report: BNP,B-Type NATRI URETIC PEPTIDEon 02-20-2015 Natriuretic peptide B mass conc (Bld) 8.6 pg/mL Invalid Interpretation Code 0-100 [facility] Work Phone: Lab Report: Basic Metabolic Profile (BMP)on 02-20-2015 Anion gap 4 molar conc 9 Invalid Interpretation Code 5-15 [facility] Work Phone: Calcium mass conc 8.3 mg/dL Low 8.5-10.1 [facility] Work Phone: Chloride molar conc 100 mmol/L Invalid Interpretation Code 98-107 [facility] Work Phone: CO2 ppres (BldV) 27.0 mmol/L Invalid Interpretation Code 21.0-32.0 [facility] Work Phone: Creatinine mass conc 1.2 mg/dL High 0.6-1.0 [facility] Work Phone: EST GFR - AA 61 mL/min Invalid Interpretation Code >60 [facility] Work Phone: GFR/1.73 sq M predicted among non-blacks MDRD vol rate/area (S/P/Bld) 50 mL/min/{1.73_m2} Low >60 [facility] Work Phone: [phone] Glucose mass conc 170 mg/dL High 70-110 [facility] Work Phone: [phone] Potassium molar conc 3.3 mmol/L Low 3.5-5.1 [facility] Work Phone: [phone] Sodium molar conc 136 mmol/L Invalid Interpretation Code 136-145 [facility] Work Phone: [phone] Urea nitrogen mass conc 10 mg/dL Invalid Interpretation Code 7-18 [facility] Work Phone: Urea nitrogen/Creatinine mass ratio 8.3 RATIO Low 10-20 [facility] Work Phone: Lab Report: CBC W/Diff, Auto matedon 02-20-2015 Absolute Neut 5.3 X10 3/UL Invalid Interpretation Code 2.0-7.7 [facility] Work Phone: Basophils/100 WBC Auto (Bld) 0.5 % Invalid Interpretation Code 0-1 [facility] Work Phone: Eosinophils/100 WBC Auto (Bld) 1.5 % Invalid Interpretation Code 0-5 [facility] Work Phone: [phone] Erythrocyte distribution width Auto Ratio (RBC) 47.5 fL High 35.1-43.9 [facility] Work Phone: [phone] Hematocrit Auto Volume Fraction (Bld) 36.1 % Low 37-47 [facility] Work Phone: Hemoglobin mass conc (Bld) 11.5 g/dL Low 12.0-15.0 [facility] Work Phone: [phone] Lymphocytes Auto #/vol (Bld) 1.54 X10 3/UL Invalid Interpretation Code 0.83-4.51 [facility] Work Phone: [phone] Lymphocytes/100 WBC Auto (Bld) 20.7 % Invalid Interpretation Code 19-41 [facility] Work Phone: MCH Auto Entitic mass (RBC) 29.9 pg Invalid Interpretation Code 27.0-32.0 [facility] Work Phone: MCHC Auto mass conc (RBC) 31.9 G/GL Low 32-36 [facility] Work Phone: MCV Auto Entitic volume (RBC) 93.8 fL Invalid Interpretation Code 81-99 [facility] Work Phone: Monocytes/100 WBC Auto (Bld) 5.5 % Invalid Interpretation Code 0-10 [facility] Work Phone: Neutrophils/100 WBC Auto (Bld) 71.5 % High 47-70 [facility] Work Phone: Platelet mean volume Fercho-Jana Entitic volume (Bld) 9.9 fL Invalid Interpretation Code 6.2-12.0 [facility] Work Phone: Platelets Auto #/vol (Bld) 259 10*3/mm3 Invalid Interpretation Code 150-450 [facility] Work Phone: RBC Auto #/vol (Bld) 3.85 10*6/uL Low 4.2-5.4 [facility] Work Phone: WBC Auto #/vol (Bld) 7.4 10*3/uL Invalid Interpretation Code 4.4-11.0 [facility] Work Phone: Lab Report: Thyroid Stim Hor ivory (TSH)on 02-20-2015 Thyrotropin Qn 79.90 u[iU]/mL High 0.358-3.74 [facility] No w Clinic Work Phone: Lab Report: Troponin-Ion Troponin I.cardiac mass conc ng/mL Invalid Interpretation Code <0.06 [facility] Work Phone: Lab Report: A1Con 08-11-2010 Hemoglobin A1c/Hemoglobin.total mass fraction (Bld) 9.6 % High 4.0-6.3 [facility] Work Phone: Lab Report: CMPon 08-11-2010 Albumin mass conc 3.6 g/dL Normal 3.4-5.0 [facility] Work Phone: ALP enzyme act/vol (Bld) 52 U/L Normal 50-136 [facility] Work Phone: ALT enzyme act/vol 31 U/L Normal 12-78 [facility] Work Phone: AST enzyme act/vol 14 U/L Low 15-37 [facility] Work Phone: Bilirubin mass conc 0.60 mg/dL Normal 0.00-1.00 [facility] Work Phone: Lab Report: LIPIDon 08-11-20 10 Cholesterol in HDL mass conc 28 mg/dL Low [facility] Work Phone: Cholesterol in LDL mass conc 106 mg/dL Normal 0-130 [facility] Work Phone: Cholesterol mass conc 189 mg/dL Normal 200 [facility] Work Phone: Lipoprotein.pre-beta mass conc 55 mg/dL High 5-40 [facility] Work Phone: Triglyceride mass conc 275 mg/dL High [facility] Work Phone: Culture, urine Bacteria identified Cx Nom (U) Negative [facility] Work Phone: Bacteria identified Cx Nom (U) Mixed Gram Pos & Gram Neg Org [facility] Work Phone: Bacteria identified Cx Nom (U) Culture exhibits no growth. [facility] Work Phone: Vital Signs Date Time Vital Sign Value Performing Clinician Laure graf 01-22-2025 14:00-0400 Diastolic blood pressure 89 mm[Hg] Dr. Lizet Linares MD Work Phone: [facility] 01-22-2025 14:00-0400 Heart rate 78 /min Dr. Lizet Linares MD Work Phone: [facility] 01-22-2025 14:00-0400 Respiratory rate 18 /min Dr. Lizet Linares MD Work Phone: [facility] 01-22-2025 14:00-0400 SaO2% (BldA) [Mass fraction] 98 % Dr. Lizet Linares MD Work Phone: [facility] 01-22-2025 14:00-0400 Systolic blood pressure 117 mm[Hg] Dr. Lizet Linares MD Work Phone: [facility] 01-22-2025 13:50-0400 Body temperature 98.2 [degF] Dr. Lizet Linares MD Work Phone: [facility] 01-22-2025 10:42-0400 Body height 152.[address] Lizet Linares MD Work Phone: [facility] 01-22-2025 10:42-0400 Body mass index (BMI) [Ratio] 39.3 kg/m2 Dr. Lizet Linares MD Work Phone: [facility] 01-22-2025 10:42-0400 Body weight 91.[address] Lizet Linares MD Work Phone: [facility] 10-24-2024 17:21-0500 Body temperature 97.7 [degF] Dr. Lizet Linares MD Work Phone: [facility] 10-24-2024 17:21-0500 Diastolic blood pressure 63 mm[Hg] Dr. Lizet Linares MD Work Phone: [facility] 10-24-2024 17:21-0500 Heart rate 78 /min Dr. Lizet Linares MD Work Phone: [facility] 10-24-2024 17:21-0500 Respiratory rate 16 /min Dr. Lizet Linares MD Work Phone: [facility] 10-24-2024 17:21-0500 SaO2% (BldA) [Mass fraction] 96 % Dr. Lizet Linares MD Work Phone: [facility] 10-24-2024 17:21-0500 Systolic blood pressure 139 mm[Hg] Dr. Lizet Linares MD Work Phone: [facility] 10-24-2024 11:09-0500 Body mass index (BMI) [Ratio] 39.2 kg/m2 Dr. Lizet Linares MD Work Phone: [facility] 10-24-2024 11:09-0500 Body weight [address] Lizet Linares MD Work Phone: [facility] 01-20-2024 05:27-0400 Body temperature 98.6 [degF] Dr. Jarred Lopez Work Phone: [facility] 01-20-2024 05:27-0400 Diastolic blood pressure 58 mm[Hg] Dr. Jarred Lopez Work Phone: [facility] 01-20-2024 05:27-0400 Heart rate 76 /min Dr. Jarred Lopez Work Phone: [facility] 01-20-2024 05:27-0400 Respiratory rate 13 /min Dr. Jarred Lopez Work Phone: [facility] 01-20-2024 05:27-0400 SaO2% (BldA) [Mass fraction] 94 % Dr. Jarred Lopez Work Phone: [facility] 01-20-2024 05:27-0400 Systolic blood pressure 127 mm[Hg] Dr. Jarred Lopez Work Phone: [facility] 01-20-2024 01:04-0400 Body height 152.[address] Jarred Lopez Work Phone: [facility] 01-20-2024 01:04-0400 Body mass index (BMI) [Ratio] 36.7 kg/m2 Dr. Jarred Lopez Work Phone: [facility] 01-20-2024 01:04-0400 Body weight 85.[address] Jarred Lopez Work Phone: 6(666)814-130464 [place] [address] 01-05-2024 13:45-0400 Body temperature 98.1 [degF] Dr. Jarred Lopez Work Phone: 8(059)254-726732 [place] [address] 01-05-2024 13:45-0400 Diastolic blood pressure 56 mm[Hg] Dr. Jarred Lopez Work Phone: 3(320)641-229832 [place] [address] 01-05-2024 13:45-0400 Heart rate 78 /min Dr. Jarred Lopez Work Phone: 1(336)753-260632 [place] [address] 01-05-2024 13:45-0400 Respiratory rate 18 /min Dr. Jarred Lopze Work Phone: 9(462)143-781132 [place] [address] 01-05-2024 13:45-0400 SaO2% (BldA) [Mass fraction] 96 % Dr. Jarred Lopez Work Phone: 0(142)460-039332 [place] [address] 01-05-2024 13:45-0400 Systolic blood pressure 96 mm[Hg] Dr. Jarred Lopez Work Phone: 4(038)884-271832 [place] [address] 01-04-2024 03:05-0400 Body mass index (BMI) [Ratio] 32.8 kg/m2 Dr. Jarred Lopez Work Phone: 3(893)945-870264 [place] [address] 01-04-2024 03:05-0400 Body weight 76.[address] Jarred Lopez Work Phone: 5(494)395-917032 [place] [address] 01-03-2024 22:31-0400 Inhaled oxygen flow rate 2 L/min Dr. Jarred Lopez Work Phone: 1(418)504-915264 [place] [address] 01-03-2024 12:42-0400 Diastolic blood pressure 64 mm[Hg] Dr. Jarred Lopez Work Phone: 4(112)004-610832 [place] [address] 01-03-2024 12:42-0400 Heart rate 88 /min Dr. Jarred Lopez Work Phone: 2(225)093-213164 [place] [address] 01-03-2024 12:42-0400 Systolic blood pressure 127 mm[Hg] Dr. Jarred Lopez Work Phone: 3(668)636-180332 [place] [address] 01-03-2024 11:52-0400 Body temperature 98 [degF] Dr. Jarred Lopez Work Phone: 6(685)618-362432 [place] [address] 01-03-2024 11:52-0400 Respiratory rate 16 /min Dr. Jarred Lopez Work Phone: 4(415)352-157332 [place] [address] 01-03-2024 11:52-0400 SaO2% (BldA) [Mass fraction] 94 % Dr. Jarred Lopez Work Phone: 0(010)656-092832 [place] [address] 01-03-2024 05:53-0400 Body mass index (BMI) [Ratio] 32.7 kg/m2 Dr. Jarred Lopez Work Phone: 1(428)382-560032 [place] [address] 01-03-2024 05:53-0400 Body weight [address] Jarred Lopez Work Phone: 0(654)078-715032 [place] [address] 01-02-2024 14:55-0400 Body height 152.[address] Jarred Lopez Work Phone: 2(749)163-304532 [place] [address] 01-01-2024 22:20-0500 Body temperature 97.6 [degF] Dr. Jarred Lopez Work Phone: 4(957)619-319564 [place] [address] 01-01-2024 22:20-0500 Diastolic blood pressure 62 mm[Hg] Dr. Jarred Lopez Work Phone: 9(148)338-855532 [place] [address] 01-01-2024 22:20-0500 Heart rate 84 /min Dr. Jarred Lopez Work Phone: 3(244)575-702732 [place] [address] 01-01-2024 22:20-0500 Respiratory rate 13 /min Dr. Jarred Lopez Work Phone: 6(419)396-377564 [place] [address] 01-01-2024 22:20-0500 SaO2% (BldA) [Mass fraction] 99 % Dr. Jarred Lopez Work Phone: 4(070)221-349432 [place] [address] 01-01-2024 22:20-0500 Systolic blood pressure 146 mm[Hg] Dr. Jarred Lopez Work Phone: 4(451)501-497732 [place] [address] 01-01-2024 18:32-0500 Body height 152.[address] Jarred Lopez Work Phone: 5(908)821-381732 [place] [address] 01-01-2024 18:32-0500 Body mass index (BMI) [Ratio] 33.1 kg/m2 Dr. Jarred Lopez Work Phone: 9(550)603-181032 [place] [address] 01-01-2024 18:32-0500 Body weight [address] Jarred Lopez Work Phone: 3(751)772-639032 [place] [address] 11-24-2023 15:05-0500 Body temperature 98.5 [degF] Dr. Jarred Lopez Work Phone: 0(243)820-510632 [place] [address] 11-24-2023 15:05-0500 Diastolic blood pressure 63 mm[Hg] Dr. Jarred Lopez Work Phone: 2(361)698-449632 [place] [address] 11-24-2023 15:05-0500 Heart rate 66 /min Dr. Jarred Lopez Work Phone: 4(908)165-893032 [place] [address] 11-24-2023 15:05-0500 Respiratory rate 16 /min Dr. Jarred Lopez Work Phone: 6(325)130-913132 [place] [address] 11-24-2023 15:05-0500 SaO2% (BldA) [Mass fraction] 96 % Dr. Jarred Lopez Work Phone: 0(858)610-426432 [place] [address] 11-24-2023 15:05-0500 Systolic blood pressure 117 mm[Hg] Dr. Jarred Lopez Work Phone: 5(603)973-951832 [place] [address] 11-24-2023 06:00-0500 Body mass index (BMI) [Ratio] 35.9 kg/m2 Dr. Jarred Lopez Work Phone: 7(539)240-210032 [place] [address] 11-24-2023 06:00-0500 Body weight 83.[address] Jarred Lopez Work Phone: [facility] 11-19-2023 10:27-0500 Body temperature 98.1 [degF] Dr. Jarred Lopez Work Phone: [facility] 11-19-2023 10:27-0500 Diastolic blood pressure 74 mm[Hg] Dr. Jarred Lopez Work Phone: 5(512)391-533464 [place] [address] 11-19-2023 10:27-0500 Heart rate 72 /min Dr. Jarred Lopez Work Phone: 4(193)364-056864 [place] [address] 11-19-2023 10:27-0500 Respiratory rate 15 /min Dr. Jarred Lopez Work Phone: 3(788)903-402532 [place] [address] 11-19-2023 10:27-0500 SaO2% (BldA) [Mass fraction] 99 % Dr. Jarred Lopez Work Phone: 8(525)744-952464 [place] [address] 11-19-2023 10:27-0500 Systolic blood pressure 134 mm[Hg] Dr. Jarred Lopez Work Phone: 5(464)935-261164 [place] [address] 11-19-2023 08:20-0500 Body height 152.[address] Jarred Lopez Work Phone: 3(933)172-760264 [place] [address] 11-19-2023 08:20-0500 Body mass index (BMI) [Ratio] 36.9 kg/m2 Dr. Jarred Lopez Work Phone: 2(745)596-618064 [place] [address] 11-19-2023 08:20-0500 Body weight 85.[address] Jarred Lopez Work Phone: [facility] 06-10-2023 16:53-0400 Respiratory rate 16 /min Dr. Ganesh Garcia Work Phone: [facility] 06-10-2023 14:57-0400 Body height 152.[address] Ganesh Garcia Work Phone: [facility] 06-10-2023 14:57-0400 Body temperature 96.4 [degF] Dr. Ganesh Garcia Work Phone: 8(153)714-590079 [place] [address] 06-10-2023 14:57-0400 Diastolic blood pressure 88 mm[Hg] Dr. Ganesh Garcia Work Phone: 4(988)593-674679 [place] [address] 06-10-2023 14:57-0400 Heart rate 93 /min Dr. Ganesh Garcia Work Phone: 7(404)865-780479 [place] [address] 06-10-2023 14:57-0400 SaO2% (BldA) [Mass fraction] 100 % Dr. Ganesh Garcia Work Phone: 9(661)949-125279 [place] [address] 06-10-2023 14:57-0400 Systolic blood pressure 119 mm[Hg] Dr. Ganesh Garcia Work Phone: 5(167)726-193279 [place] [address] 06-06-2023 20:09-0400 Diastolic blood pressure 97 mm[Hg] Dr. Ganesh Garcia Work Phone: 9(800)793-717879 [place] [address] 06-06-2023 20:09-0400 Heart rate 71 /min Dr. Ganesh Garcia Work Phone: 7(971)370-001679 [place] [address] 06-06-2023 20:09-0400 Respiratory rate 16 /min Dr. Ganesh Garcia Work Phone: 9(856)412-363879 [place] [address] 06-06-2023 20:09-0400 SaO2% (BldA) [Mass fraction] 97 % Dr. Ganesh Garcia Work Phone: 9(945)529-395879 [place] [address] 06-06-2023 20:09-0400 Systolic blood pressure 178 mm[Hg] Dr. Ganesh Garcia Work Phone: 7(510)534-780379 [place] [address] 06-06-2023 18:42-0400 Body mass index (BMI) [Ratio] 38 kg/m2 Dr. Ganesh Garcia Work Phone: 0(504)851-876679 [place] [address] 06-06-2023 18:42-0400 Body weight [address] Ganesh Garcia Work Phone: 4(827)377-269979 [place] [address] 06-06-2023 17:48-0400 Body height 152.[address] Ganesh Garcia Work Phone: 9(589)083-912879 [place] [address] 06-06-2023 17:48-0400 Body temperature 96.9 [degF] Dr. Ganesh Garcia Work Phone: 3(778)450-668349 [address] 06-04-2023 21:40-0400 Diastolic blood pressure 58 mm[Hg] Dr. Ganesh Garcia Work Phone: 6(202)736-932279 [place] [address] 06-04-2023 21:40-0400 Heart rate 85 /min Dr. Ganesh Garcia Work Phone: 9(395)144-237979 [place] [address] 06-04-2023 21:40-0400 Respiratory rate 18 /min Dr. Ganesh Garcia Work Phone: 4(298)897-415379 [place] [address] 06-04-2023 21:40-0400 SaO2% (BldA) [Mass fraction] 93 % Dr. Ganesh Garcia Work Phone: 3(012)221-929479 [place] [address] 06-04-2023 21:40-0400 Systolic blood pressure 118 mm[Hg] Dr. Ganesh Garcia Work Phone: 8(690)060-985279 [place] [address] 06-04-2023 19:28-0400 Body mass index (BMI) [Ratio] 37.9 kg/m2 Dr. Ganesh Garcia Work Phone: 4(012)595-412079 [place] [address] 06-04-2023 19:28-0400 Body weight 87.[address] Ganesh Garcia Work Phone: 2(640)868-500479 [place] [address] 06-04-2023 13:49-0400 Body height 152.[address] Ganesh Garcia Work Phone: 7(142)978-197279 [place] [address] 06-04-2023 13:49-0400 Body temperature 96.6 [degF] Dr. Ganesh Garcia Work Phone: 9(001)961-292449 [address] 04-23-2023 14:35-0400 Body temperature 100 [degF] Vernon Degroot HOSE CEMENTER.PRACTICE ARCHITECT Work Phone: [facility] 04-23-2023 14:35-0400 Body weight 81.1 kg Vernon Degroot HOSE CEMENTERToñoPRACTICE ARCHITECT Work Phone: [facility] 04-23-2023 14:35-0400 Diastolic blood pressure 82 mm[Hg] Vernon Degroot HOSE CEMENTERToñoPRACTICE ARCHITECT Work Phone: [facility] 04-23-2023 14:35-0400 Heart rate 94 /min Vernon Degroot HOSE CEMENTER.PRACTICE ARCHITECT Work Phone: [facility] 04-23-2023 14:35-0400 Respiratory rate 21 /min Vernon Degroot HOSE CEMENTER.PRACTICE ARCHITECT Work Phone: [facility] 04-23-2023 14:35-0400 SaO2% (BldA) [Mass fraction] 99 % Vernon Degroot HOSE CEMENTER.PRACTICE ARCHITECT Work Phone: [facility] 04-23-2023 14:35-0400 Systolic blood pressure 130 mm[Hg] Vernon Degroot HOSE CEMENTER.PRACTICE ARCHITECT Work Phone: [facility] 04-07-2023 13:09-0400 Body height 152.4 cm Dwayne Lopez MD Work Phone: [facility] 04-07-2023 13:09-0400 Body weight 81.65 kg Dwayne Lopez MD Work Phone: [facility] 04-07-2023 13:09-0400 Diastolic blood pressure 74 mm[Hg] Dwayne Lopez MD Work Phone: [facility] 04-07-2023 13:09-0400 Heart rate 80 /min Dwayne Lopez MD Work Phone: [facility] 04-07-2023 13:09-0400 Respiratory rate 16 /min Dwayne Lopez MD Work Phone: [facility] 04-07-2023 13:09-0400 Systolic blood pressure 112 mm[Hg] Dwayne Lopez MD Work Phone: [facility] 03-28-2023 09:08-0400 Body mass index (BMI) [Ratio] 35.6 kg/m2 Dr. Lizet Linares Work Phone: [facility] 03-28-2023 09:08-0400 Body weight 82.[address] Lizet Linares Work Phone: [facility] 03-28-2023 08:40-0400 Body height 152.[address] Lizet Linares Work Phone: [facility] 03-28-2023 08:40-0400 Body temperature 95 [degF] Dr. Lizet Linares Work Phone: [facility] 03-28-2023 08:40-0400 Diastolic blood pressure 76 mm[Hg] Dr. Lizet Linares Work Phone: [facility] 03-28-2023 08:40-0400 Heart rate 122 /min Dr. Lizet Linares Work Phone: [facility] 03-28-2023 08:40-0400 Respiratory rate 18 /min Dr. Lizet Linares Work Phone: [facility] 03-28-2023 08:40-0400 SaO2% (BldA) [Mass fraction] 100 % Dr. Lizet Linares Work Phone: [facility] 03-28-2023 08:40-0400 Systolic blood pressure 133 mm[Hg] Dr. Lizet Linares Work Phone: [facility] 03-24-2023 10:18-0400 Body weight 83.92 kg Dwayne Lopez MD Work Phone: [facility] 03-24-2023 10:18-0400 Diastolic blood pressure 64 mm[Hg] Dwayne Lopez MD Work Phone: [facility] 03-24-2023 10:18-0400 Heart rate 84 /min Dwayne Lopez MD Work Phone: [facility] 03-24-2023 10:18-0400 Respiratory rate 16 /min Dwayne Lopez MD Work Phone: [facility] 03-24-2023 10:18-0400 Systolic blood pressure 110 mm[Hg] Dwayne Lopez MD Work Phone: [facility] 02-11-2023 13:05-0400 Body height 152.[address] Lizet Linares Work Phone: [facility] 02-11-2023 13:05-0400 Body mass index (BMI) [Ratio] 35.9 kg/m2 Dr. Lizet Linares Work Phone: [facility] 02-11-2023 13:05-0400 Body weight 83.[address] Lizet Linares Work Phone: [facility] 02-11-2023 13:05-0400 Diastolic blood pressure 83 mm[Hg] Dr. Lizet Linares Work Phone: [facility] 02-11-2023 13:05-0400 Heart rate 88 /min Dr. Lizet Linares Work Phone: [facility] 02-11-2023 13:05-0400 Respiratory rate 18 /min Dr. Lizet Linares Work Phone: [facility] 02-11-2023 13:05-0400 SaO2% (BldA) [Mass fraction] 99 % Dr. Lizet Linares Work Phone: [facility] 02-11-2023 13:05-0400 Systolic blood pressure 152 mm[Hg] Dr. Lizet Linares Work Phone: [facility] 01-30-2023 00:39-0400 Body temperature 98 [degF] Dr. Lizet Linares Work Phone: [facility] 01-30-2023 00:39-0400 Diastolic blood pressure 85 mm[Hg] Dr. Lizet Linares Work Phone: [facility] 01-30-2023 00:39-0400 Heart rate 85 /min Dr. Lizet Linares Work Phone: [facility] 01-30-2023 00:39-0400 Respiratory rate 19 /min Dr. Lizet Linares Work Phone: [facility] 01-30-2023 00:39-0400 SaO2% (BldA) [Mass fraction] 97 % Dr. Lizet Linares Work Phone: [facility] 01-30-2023 00:39-0400 Systolic blood pressure 159 mm[Hg] Dr. Lizet Linares Work Phone: [facility] 01-29-2023 22:02-0400 Body mass index (BMI) [Ratio] 36.6 kg/m2 Dr. Lizet Linares Work Phone: [facility] 01-29-2023 22:02-0400 Body weight 85.[address] Lizet Linares Work Phone: [facility] 01-29-2023 21:18-0400 Body height 152.[address] Lizet Linares Work Phone: [facility] 01-07-2023 15:19-0400 Body mass index (BMI) [Ratio] 36.2 kg/m2 Dr. Ganesh Garcia Work Phone: [facility] 01-07-2023 15:19-0400 Body weight 84.[address] Ganesh Garcia Work Phone: [facility] 01-07-2023 15:17-0400 Body height 152.[address] Ganesh Garcia Work Phone: [facility] 01-07-2023 15:17-0400 Body temperature 96 [degF] Dr. Ganesh Garcia Work Phone: [facility] 01-07-2023 15:17-0400 Diastolic blood pressure 70 mm[Hg] Dr. Ganesh Garcia Work Phone: [facility] 01-07-2023 15:17-0400 Heart rate 95 /min Dr. Ganesh Garcia Work Phone: [facility] 01-07-2023 15:17-0400 Respiratory rate 18 /min Dr. Ganesh Garcia Work Phone: [facility] 01-07-2023 15:17-0400 SaO2% (BldA) [Mass fraction] 99 % Dr. Ganesh Garcia Work Phone: 7(845)003-692279 [place] [address] 01-07-2023 15:17-0400 Systolic blood pressure 143 mm[Hg] Dr. Ganesh Garcia Work Phone: 6(768)230-748579 [place] [address] 01-06-2023 20:30-0400 Diastolic blood pressure 59 mm[Hg] Dr. Ganesh Garcia Work Phone: 3(495)745-830879 [place] [address] 01-06-2023 20:30-0400 Heart rate 84 /min Dr. Ganesh Garcia Work Phone: 5(113)768-558479 [place] [address] 01-06-2023 20:30-0400 Respiratory rate 19 /min Dr. Ganesh Garcia Work Phone: 7(733)765-607479 [place] [address] 01-06-2023 20:30-0400 SaO2% (BldA) [Mass fraction] 94 % Dr. Ganesh Garcia Work Phone: 7(480)298-786479 [place] [address] 01-06-2023 20:30-0400 Systolic blood pressure 145 mm[Hg] Dr. Ganesh Garcia Work Phone: 2(113)631-202879 [place] [address] 01-06-2023 17:40-0400 Body mass index (BMI) [Ratio] 36 kg/m2 Dr. Ganesh Garcia Work Phone: 5(028)002-840079 [place] [address] 01-06-2023 17:40-0400 Body weight 83.[address] Ganesh Garcia Work Phone: 1(367)805-672979 [place] [address] 01-06-2023 17:27-0400 Body temperature 98 [degF] Dr. Ganesh Garcia Work Phone: 4(720)464-447379 [place] [address] 01-06-2023 17:24-0400 Body height 152.[address] Ganesh Garcia Work Phone: 2(963)608-234679 [place] [address] 11-05-2022 05:00-0500 Diastolic blood pressure 75 mm[Hg] Dr. Ganesh Garcia Work Phone: 0(129)912-771979 [place] [address] 11-05-2022 05:00-0500 Heart rate 89 /min Dr. Ganesh Garcai Work Phone: 1(098)978-033379 [place] [address] 11-05-2022 05:00-0500 Respiratory rate 19 /min Dr. Ganesh Garcia Work Phone: 6(849)084-567279 [place] [address] 11-05-2022 05:00-0500 SaO2% (BldA) [Mass fraction] 95 % Dr. Ganesh Garcia Work Phone: 2(347)593-150379 [place] [address] 11-05-2022 05:00-0500 Systolic blood pressure 138 mm[Hg] Dr. Ganesh Garcia Work Phone: 2(419)362-016079 [place] [address] 11-05-2022 01:44-0500 Body height 152.[address] Ganesh Garcia Work Phone: 3(527)058-173379 [place] [address] 11-05-2022 01:44-0500 Body mass index (BMI) [Ratio] 33.7 kg/m2 Dr. Ganesh Garcia Work Phone: 4(769)796-950279 [place] [address] 11-05-2022 01:44-0500 Body temperature 96.7 [degF] Dr. Ganesh Garcia Work Phone: 5(743)056-149879 [place] [address] 11-05-2022 01:44-0500 Body weight 78.[address] Ganesh Garcia Work Phone: 6(445)653-086479 [place] [address] 10-09-2022 04:11-0500 Diastolic blood pressure 67 mm[Hg] Dr. Ganesh Garcia Work Phone: 4(838)130-324979 [place] [address] 10-09-2022 04:11-0500 Heart rate 68 /min Dr. Ganesh Garcia Work Phone: 1(575)180-102679 [place] [address] 10-09-2022 04:11-0500 Respiratory rate 18 /min Dr. Ganesh Garcia Work Phone: 6(774)412-692079 [place] [address] 10-09-2022 04:11-0500 SaO2% (BldA) [Mass fraction] 97 % Dr. Ganesh Garcia Work Phone: 5(375)328-758779 [place] [address] 10-09-2022 04:11-0500 Systolic blood pressure 100 mm[Hg] Dr. Ganesh Garcia Work Phone: 1(465)060-152279 [place] [address] 10-09-2022 01:29-0500 Body height 152.[address] Ganesh Garcia Work Phone: 2(287)528-942379 [place] [address] Work Phone: 10-09-2022 01:29-0500 Body mass index (BMI) [Ratio] 34.3 kg/m2 Dr. Ganesh Garcia Work Phone: 2(318)442-221779 [place] [address] 10-09-2022 01:29-0500 Body temperature 98.6 [degF] Dr. Ganesh Garcia Work Phone: 1(641)916-413579 [place] [address] 10-09-2022 01:29-0500 Body weight 79.[address] Ganesh Garcia Work Phone: 5(933)121-811879 [place] [address] 09-09-2022 13:37-0500 Body height 152.[address] Ganesh Garcia Work Phone: 2(643)944-523079 [place] [address] Work Phone: 09-09-2022 13:37-0500 Diastolic blood pressure 71 mm[Hg] Dr. Ganesh Garcia Work Phone: 4(072)242-282979 [place] [address] 09-09-2022 13:37-0500 Heart rate 88 /min Dr. Ganesh Garcia Work Phone: 2(564)749-709679 [place] [address] 09-09-2022 13:37-0500 Respiratory rate 16 /min Dr. Ganesh Garcia Work Phone: 2(172)217-626779 [place] [address] 09-09-2022 13:37-0500 Systolic blood pressure 101 mm[Hg] Dr. Ganesh Garcia Work Phone: 6(202)638-085379 [place] [address] 08-24-2022 07:19-0400 Diastolic blood pressure 49 mm[Hg] Dr. Ganesh Garcia Work Phone: 4(767)580-987979 [place] [address] 08-24-2022 07:19-0400 Heart rate 65 /min Dr. Ganesh Garcia Work Phone: 7(214)785-869979 [place] [address] 08-24-2022 07:19-0400 Respiratory rate 18 /min Dr. Ganesh Garcia Work Phone: 1(581)391-937079 [place] [address] 08-24-2022 07:19-0400 SaO2% (BldA) [Mass fraction] 93 % Dr. Ganesh Garcia Work Phone: 0(621)446-229079 [place] [address] 08-24-2022 07:19-0400 Systolic blood pressure 107 mm[Hg] Dr. Ganesh Garcia Work Phone: 6(135)667-431379 [place] [address] 08-24-2022 05:17-0400 Inhaled oxygen flow rate 1 L/min Dr. Ganesh Garcia Work Phone: [facility] 08-24-2022 03:19-0400 Body height 152.[address] Ganesh Garcia Work Phone: [facility] Work Phone: 08-24-2022 03:19-0400 Body mass index (BMI) [Ratio] 33.4 kg/m2 Dr. Ganesh Garcia Work Phone: [facility] 08-24-2022 03:19-0400 Body temperature 97.3 [degF] Dr. Ganesh Garcia Work Phone: [facility] 08-24-2022 03:19-0400 Body weight 77.[address] Ganesh Garcia Work Phone: [facility] 06-12-2022 14:13-0400 Body height 152.[address] Jarred Lopez Work Phone: [facility] Work Phone: 06-12-2022 14:12-0400 Body mass index (BMI) [Ratio] 34.7 kg/m2 Dr. Jarred Lopez Work Phone: [facility] Work Phone: 06-12-2022 14:12-0400 Body weight 80.[address] Jarred Lopez Work Phone: [facility] Work Phone: 06-12-2022 14:12-0400 Diastolic blood pressure 58 mm[Hg] Dr. Jarred Lopez Work Phone: [facility] Work Phone: 06-12-2022 14:12-0400 Heart rate 68 /min Dr. Jarred Lopez Work Phone: [facility] Work Phone: 06-12-2022 14:12-0400 Respiratory rate 16 /min Dr. Jarred Lopez Work Phone: [facility] Work Phone: 06-12-2022 14:12-0400 Systolic blood pressure 106 mm[Hg] Dr. Jarred Lopez Work Phone: [facility] Work Phone: 05-21-2022 15:00-0400 Heart rate 73 /min Dr. Jarred Lopez Work Phone: [facility] Work Phone: 05-21-2022 14:55-0400 Diastolic blood pressure 71 mm[Hg] Dr. Jarred Lopez Work Phone: [facility] Work Phone: 05-21-2022 14:55-0400 Heart rate 74 /min Dr. Jarred Lopez Work Phone: [facility] Work Phone: 05-21-2022 14:55-0400 Respiratory rate 16 /min Dr. Jarred Lopez Work Phone: [facility] Work Phone: 05-21-2022 14:55-0400 SaO2% (BldA) [Mass fraction] 94 % Dr. Jarred Lopez Work Phone: [facility] Work Phone: 05-21-2022 14:55-0400 Systolic blood pressure 112 mm[Hg] Dr. Jarred Lopez Work Phone: [facility] Work Phone: 05-21-2022 14:44-0400 Inhaled oxygen flow rate 2 L/min Dr. Jarred Lopez Work Phone: [facility] Work Phone: 05-21-2022 11:46-0400 Body temperature 98.2 [degF] Dr. aJrred Lopez Work Phone: [facility] Work Phone: 05-21-2022 06:40-0400 Body height 152.[address] Jarred Lopez Work Phone: [facility] Work Phone: 05-21-2022 06:40-0400 Body mass index (BMI) [Ratio] 36.3 kg/m2 Dr. Jarred Lopez Work Phone: [facility] Work Phone: 05-21-2022 06:40-0400 Body weight 84.[address] Jarred Lopez Work Phone: [facility] Work Phone: 05-21-2022 03:08-0400 Body temperature 97.9 [degF] Dr. Jarred Lopez Work Phone: [facility] Work Phone: 05-21-2022 03:08-0400 Diastolic blood pressure 72 mm[Hg] Dr. Jarred Lopez Work Phone: [facility] Work Phone: 05-21-2022 03:08-0400 Heart rate 77 /min Dr. Jarred Lopez Work Phone: [facility] Work Phone: 05-21-2022 03:08-0400 Inhaled oxygen flow rate 2 L/min Dr. Jarred Lopez Work Phone: [facility] Work Phone: 05-21-2022 03:08-0400 Respiratory rate 19 /min Dr. Jarred Lopez Work Phone: [facility] Work Phone: 05-21-2022 03:08-0400 SaO2% (BldA) [Mass fraction] 96 % Dr. Jarred Lopez Work Phone: [facility] Work Phone: 05-21-2022 03:08-0400 Systolic blood pressure 116 mm[Hg] Dr. Jarred Lopez Work Phone: [facility] Work Phone: 05-20-2022 22:05-0400 Body height 152.[address] Jarred Lopez Work Phone: [facility] Work Phone: 05-20-2022 22:05-0400 Body mass index (BMI) [Ratio] 38.9 kg/m2 Dr. Jarred Lopez Work Phone: [facility] Work Phone: 05-20-2022 22:05-0400 Body weight 90.[address] Jarred Lopez Work Phone: [facility] Work Phone: 05-04-2022 00:00-0400 Diastolic blood pressure 61 mm[Hg] Dr. Jarred Lopez Work Phone: [facility] Work Phone: 05-04-2022 00:00-0400 Heart rate 79 /min Dr. Jarred Lopez Work Phone: [facility] Work Phone: 05-04-2022 00:00-0400 Respiratory rate 17 /min Dr. Jarred Lopez Work Phone: [facility] Work Phone: 05-04-2022 00:00-0400 SaO2% (BldA) [Mass fraction] 96 % Dr. Jarred Lopez Work Phone: [facility] Work Phone: 05-04-2022 00:00-0400 Systolic blood pressure 114 mm[Hg] Dr. Jarred Lopez Work Phone: [facility] Work Phone: 05-03-2022 19:54-0400 Body height 152.[address] Jarred Lopez Work Phone: [facility] Work Phone: 05-03-2022 19:54-0400 Body mass index (BMI) [Ratio] 37.8 kg/m2 Dr. Jarred Lopez Work Phone: [facility] Work Phone: 05-03-2022 19:54-0400 Body temperature 97.8 [degF] Dr. Jarred Lopez Work Phone: [facility] Work Phone: 05-03-2022 19:54-0400 Body weight [address] Jarred Lopez Work Phone: [facility] Work Phone: 04-25-2022 15:04-0400 Heart rate 72 /min Dr. Jarred Lopez Work Phone: [facility] Work Phone: 04-25-2022 11:53-0400 Body temperature 97.8 [degF] Dr. Jarred Lopez Work Phone: [facility] Work Phone: 04-25-2022 11:53-0400 Diastolic blood pressure 65 mm[Hg] Dr. Jarred Lopez Work Phone: [facility] Work Phone: 04-25-2022 11:53-0400 Respiratory rate 16 /min Dr. Jarred Lopez Work Phone: [facility] Work Phone: 04-25-2022 11:53-0400 SaO2% (BldA) [Mass fraction] 94 % Dr. Jarred Lopez Work Phone: [facility] Work Phone: 04-25-2022 11:53-0400 Systolic blood pressure 105 mm[Hg] Dr. Jarred Lopez Work Phone: [facility] Work Phone: 04-25-2022 09:47-0400 Inhaled oxygen flow rate 2 L/min Dr. Jarred Lopez Work Phone: [facility] Work Phone: 04-24-2022 17:41-0400 Body height 152.[address] Jarred Lopez Work Phone: [facility] Work Phone: 04-24-2022 17:41-0400 Body mass index (BMI) [Ratio] 35.4 kg/m2 Dr. Jarred Lopez Work Phone: [facility] Work Phone: 04-24-2022 17:41-0400 Body weight 82.[address] Jarred Lopez Work Phone: [facility] Work Phone: 03-30-2022 15:00-0400 Body temperature 97.2 [degF] Dr. Jarred Lopez Work Phone: [facility] Work Phone: 03-30-2022 15:00-0400 Diastolic blood pressure 86 mm[Hg] Dr. Jarred Lopez Work Phone: [facility] Work Phone: 03-30-2022 15:00-0400 Heart rate 81 /min Dr. Jarred Lopez Work Phone: [facility] Work Phone: 03-30-2022 15:00-0400 Respiratory rate 16 /min Dr. Jarred Lopez Work Phone: [facility] Work Phone: 03-30-2022 15:00-0400 SaO2% (BldA) [Mass fraction] 96 % Dr. Jarred Lopez Work Phone: [facility] Work Phone: 03-30-2022 15:00-0400 Systolic blood pressure 114 mm[Hg] Dr. Jarred Lopez Work Phone: [facility] Work Phone: 03-28-2022 13:35-0400 Inhaled oxygen flow rate 2 L/min Dr. Jarred Lopez Work Phone: [facility] Work Phone: 03-20-2022 18:30-0400 Body temperature 97.1 [degF] Dr. Jarred Lopez Work Phone: [facility] Work Phone: 03-20-2022 18:30-0400 Diastolic blood pressure 89 mm[Hg] Dr. Jarred Lopez Work Phone: [facility] Work Phone: 03-20-2022 18:30-0400 Heart rate 80 /min Dr. Jarred Lopez Work Phone: [facility] Work Phone: 03-20-2022 18:30-0400 Respiratory rate 16 /min Dr. Jarred Lopez Work Phone: [facility] Work Phone: 03-20-2022 18:30-0400 SaO2% (BldA) [Mass fraction] 100 % Dr. Jarred Lopez Work Phone: [facility] Work Phone: 03-20-2022 18:30-0400 Systolic blood pressure 137 mm[Hg] Dr. Jarred Lopez Work Phone: [facility] Work Phone: 03-20-2022 18:20-0400 Body height 152.[address] Jarred Lopez Work Phone: [facility] Work Phone: 03-20-2022 18:20-0400 Body mass index (BMI) [Ratio] 32.3 kg/m2 Dr. Jarred Lopez Work Phone: [facility] Work Phone: 03-20-2022 18:20-0400 Body weight [address] Jarred Lopez Work Phone: [facility] Work Phone: 02-24-2022 16:22-0400 Heart rate 84 /min [facility] Work Phone: 02-24-2022 16:22-0400 Respiratory rate 16 /min [facility] Work Phone: 02-24-2022 16:22-0400 SaO2% (BldA) [Mass fraction] 97 % [facility] Work Phone: 02-24-2022 15:40-0400 Diastolic blood pressure 60 mm[Hg] [facility] Work Phone: 02-24-2022 15:40-0400 Systolic blood pressure 108 mm[Hg] [facility] Work Phone: 02-24-2022 13:02-0400 Body height 152.4 cm [facility] Work Phone: 02-24-2022 13:02-0400 Body mass index (BMI) [Ratio] 29.7 kg/m2 [facility] Work Phone: 02-24-2022 13:02-0400 Body temperature 97.6 [degF] [facility] Work Phone: 02-24-2022 13:02-0400 Body weight 68.94 kg [facility] Work Phone: 01-13-2022 19:41-0400 Diastolic blood pressure 70 mm[Hg] [facility] Work Phone: 01-13-2022 19:41-0400 Heart rate 74 /min [facility] Work Phone: 01-13-2022 19:41-0400 Respiratory rate 17 /min [facility] Work Phone: 01-13-2022 19:41-0400 SaO2% (BldA) [Mass fraction] 97 % [facility] Work Phone: 01-13-2022 19:41-0400 Systolic blood pressure 95 mm[Hg] [facility] Work Phone: 01-13-2022 14:20-0400 Body height 152.4 cm [facility] Work Phone: 01-13-2022 14:20-0400 Body mass index (BMI) [Ratio] 29.7 kg/m2 [facility] Work Phone: 01-13-2022 14:20-0400 Body temperature 97.3 [degF] [facility] Work Phone: 01-13-2022 14:20-0400 Body weight 68.94 kg [facility] Work Phone: 09-27-2021 14:38-0500 Body mass index (BMI) [Ratio] 28.7 kg/m2 [facility] Work Phone: 09-27-2021 14:38-0500 Body temperature 96.6 [degF] [facility] Work Phone: 09-27-2021 14:38-0500 Body weight 66.67 kg [facility] Work Phone: 09-27-2021 14:38-0500 Diastolic blood pressure 80 mm[Hg] [facility] Work Phone: 09-27-2021 14:38-0500 Heart rate 100 /min [facility] Work Phone: 09-27-2021 14:38-0500 Respiratory rate 16 /min [facility] Work Phone: 09-27-2021 14:38-0500 SaO2% (BldA) [Mass fraction] 100 % [facility] Work Phone: 09-27-2021 14:38-0500 Systolic blood pressure 154 mm[Hg] [facility] Work Phone: 07-28-2017 17:13-0400 BMI (Body Mass Index) 32.38 kg/m2 Angelika De La Torre LPN [facility] Work Phone: 07-28-2017 17:13-0400 Body Temperature 98.3 [degF] Angelika De La Torre LPN [facility] Work Phone: 07-28-2017 17:13-0400 BP Diastolic 76 mm[Hg] Angelika De La Torre LPN [facility] Work Phone: 07-28-2017 17:13-0400 BP Systolic 124 mm[Hg] Angelika De La Torre LPN [facility] Work Phone: 07-28-2017 17:13-0400 Height 152.4 cm Angelika De La Torre LPN [facility] Work Phone: 07-28-2017 17:13-0400 Pulse (Heart Rate) 72 /min Angelika De La Torre LPN [facility] Work Phone: 07-28-2017 17:13-0400 Respiratory Rate 15 /min Angelika De La Torre LPN [facility] Work Phone: 07-28-2017 17:13-0400 Weight 75.21 kg Angelika De La Torre LPN [facility] Work Phone: 02-04-2012 09:28-0400 BSA (Body Surface Area) 1.75 m2 Angelika De La Torre LPN [facility] Work Phone: Encounters Encounter Date Encounter Type Care Provider Facility Start: 03-29-2025 ambulatory Efmarcelle Linares Facili ty:[facility] Start: 03-20-2025 End: 03-20-2025 ambulatory [facility] Start: 03-20-2025 End: 03-20-2025 Patient encounter procedure Dwayne Lopez MD [facility] Comment on above: Population Health [facility] Outreach (Nikki Trujillo ) Start: 03-12-2025 End: 03-12-2025 ambulatory Lizet NOLASCO Facility:[facility] Start: 03-05-2025 ambulatory Ana Maria NOLASCO Fac ility:[facility] Start: 02-12-2025 End: 02-12-2025 ambulatory [facility] Work Phone: [facility] Start: 02-12-2025 End: 02-12-2025 Patient encounter procedure [facility] Work Phone: [facility] Start: 02-06-2025 End: 03-09-2025 ambulatory Dwayne Lopez MD Work Phone: [facility] Start: 01-30-2025 End: 01-30-2025 ambulatory Lizet Linares Facility:[facility] Start: 01-23-2025 End: 01-23-2025 ambulatory Hollyjanellnatasha Tayjntal Facility:[facility] Start: 01-22-2025 End: 01-22-2025 ambulatory Efchristastacey Crossjntal Facility:[facility] Start: 01-22-2025 End: 01-22-2025 Ana Maria Geller [facility] [place] -[facility] Work Phone: Start: 01-22-2025 End: 01-22-2025 Dr. Lizet Linares MD Work Phone: -Emergency Department Work Phone: Start: 01-22-2025 End: 01-22-2025 Emergency department patient visit Dr. Lizet Linares MD Work Phone: [facility] Work Phone: Start: 01-05-2025 End: 01-05-2025 ambulatory Dwayne Lopez MD Work Phone: [facility] Comment on above: Allied Health Visit (Medication Adherence Outreach/) Start: 01-05-2025 End: 01-05-2025 Lizet Linares MD [facility] Start: 01-04-2025 End: 01-05-2025 ambulatory Lizet NOLASCO Facility:[facility] Start: 01-04-2025 End: 01-04-2025 Claude REYNOLDS -[facility] Work Phone: Start: 12-07-2024 ambulatory Efewongbe Oleghe OLS Fa cility:[facility]: [facility]-07[facility] Start: 11-30-2024 ambulatory Efewongbe Oleghe OLS Fa cility:[facility] Start: 11-30-2024 Lizet Linares MD [facility] Start: 11-29-2024 End: 11-29-2024 ambulatory [facility] Start: 11-29-2024 End: 11-29-2024 Patient encounter procedure Ashish Bray MA [facility] Comment on above: Population Health Na vigation Outreach ([facility]) Start: 11-28-2024 End: 11-28-2024 ambulatory Efewongbe Oleghe [place] [place] Start: 11-28-2024 End: 11-28-2024 Dr. Lizet Linares MD -[facility] Work Phone: Start: 11-24-2024 ambulatory Efewongbe Oleghe OLS Fa cility:[facility] Start: [facility]-24-[facility]24 [facility] Start: 11-17-2024 End: 11-17-[facility]24 [facility] Start: 11-17-2024 End: 11-17-2024 ambulatory Efewongbe Oleghe OLS Facility:[facility] Start: 11-10-2024 End: 11-10-2024 Lizet Linares MD [facility] Start: 11-10-2024 End: 11-10-2024 ambulatory Efewongbe Oleghe Facility:[facility] Start: 11-03-2024 ambulatory Efewongbe Oleghe Facili ty:[facility] Start: 11-03-2024 Lizet Linares MD [facility] Start: 11-01-2024 End: 11-01-2024 [facility] Start: 11-01-2024 End: 11-01-2024 ambulatory Efewongbe Oleghe Facility:[facility] Start: 10-27-2024 End: 10-27-2024 ambulatory Efewongbe Oleghe [place] [place] Start: 10-27-2024 End: 10-27-2024 Ana Maria MOODY -[facility] Work Phone: Start: 10-24-2024 End: 10-24-2024 Dr. Salvador Campbell DO -Emergency Departaz nt Work Phone: Start: 10-24-2024 End: 10-24-2024 Emergency department patient visit Efmarcelle Portere Facility:[facility] Start: 10-20-2024 ambulatory Efewongbe Oleghe Facili ty:[facility] Start: 10-20-2024 Lizet Linares MD [facility] Start: 10-13-2024 ambulatory Efewongbe Oleghe Facili ty:[facility] Start: 10-13-2024 Lizet Linares MD [facility] Start: 10-06-2024 ambulatory Efewongbe Oleghe Facili ty:[facility] Start: 10-06-2024 End: 10-06-2024 [facility] Start: 10-06-2024 End: 10-06-2024 ambulatory Efewongbe Oleghe Facility:[facility] Start: 09-29-2024 End: 09-29-2024 Lizet Linares MD [facility] Start: 09-29-2024 End: 09-29-2024 ambulatory Efewongbe Oleghe Facility:[facility] Start: 09-26-2024 End: 09-27-2024 ambulatory Efewongbe Oleghe [place] [place] Start: 09-26-2024 End: 09-27-2024 Dr. Lizet Linares MD -[facility] Work Phone: Start: 09-22-2024 End: 09-22-2024 ambulatory Efewongbe Oleghe Facility:[facility] Start: 09-20-2024 End: 09-20-2024 ambulatory Efewcumberlandbe Olee Facility:[facility] Start: 09-15-2024 End: 09-15-2024 ambulatory Efewongbe Oleghe Facility:[facility] Start: 09-13-2024 End: 09-13-2024 ambulatory Efewongbe Olee Facility:[facility] Start: 09-08-2024 End: 09-08-2024 ambulatory [facility]rena [facility] Start: 09-08-2024 End: 09-08-2024 Patient encounter procedure Irena Wild [facility] Comment on above: Population Health Na vigation Outreach (Vinh No PCP ) Start: 09-08-2024 End: 09-08-2024 [facility] Start: 09-01-2024 ambulatory Efewcumberlandbe Oleghe OLS Fa cility:[facility] Start: 08-25-2024 End: 08-25-2024 ambulatory Daniel Sarabiashyam Facility:[facility] Start: 08-19-2024 End: 08-20-2024 Emergency department patient visit Raúl Sapna Facility:[facility] Start: 08-18-2024 End: 08-18-2024 [facility] Start: 08-11-2024 End: 08-11-2024 ambulatory Efewongbe Oleghe OLS Facility:[facility] Start: 08-04-2024 ambulatory Efewcumberlandbe Olee OLS Fa cility:[facility] Start: 08-02-2024 End: 08-02-2024 ambulatory Efewongbe Oleghe Facility:[facility] Start: 08-01-2024 End: 08-01-2024 ambulatory Efewongbe Oleghe Facility:[facility] Start: 07-28-2024 ambulatory Efewongbe Oleghe OLS Fa cility:[facility] Start: 07-21-2024 ambulatory Efewcumberlandbe Oleghe OLS Fa cility:[facility] Start: 07-14-2024 ambulatory Efewongbe Oleghe OLS Fa cility:[facility] Start: 07-08-2024 End: 07-08-2024 Emergency department patient visit Salvador Campbell Facility:[facility] Start: 07-07-2024 ambulatory Efewongbe Oleghe OLS Fa cility:[facility] Start: 07-04-2024 End: 07-04-2024 ambulatory Ana Mariatom Mckeonwinsome ADKINS Facility:[facility] Start: 06-28-2024 ambulatory Efewongbe Oleghe OLS Fa cility:[facility] Start: 06-23-2024 ambulatory Efewongbe Oleghe OLS Fa cility:[facility] Start: 06-20-2024 ambulatory Efewongbe Oleghe Facili ty:[facility] Start: 06-20-2024 End: 06-20-2024 ambulatory Efewongbe Oleghe Facility:[facility] Start: 06-16-2024 ambulatory Efewongbe Oleghe OLS Fa cility:[facility] Start: 06-13-2024 End: 06-13-2024 ambulatory Efewongbe Oleghe Facility:[facility] Start: 06-11-2024 End: 06-12-2024 Emergency department patient visit Adebayo Camp Facility:[facility] Start: 06-08-2024 End: 06-09-2024 ambulatory Efewongbe Oleghe OLS Facility:[facility] Start: 06-06-2024 End: 06-06-2024 ambulatory Efewongbe Oleghe Facility:[facility] Start: 06-05-2024 End: 06-05-2024 ambulatory Efewongbe Oleghe OLS Facility:[facility] Start: 06-01-2024 End: 06-02-2024 ambulatory Ayjuan Basali Facility:[facility] Start: 05-31-2024 End: 05-31-2024 ambulatory Efewongbe Oleghe Facility:[facility] Start: 05-26-2024 End: 05-26-2024 ambulatory Efewongbe Oleghe OLS Facility:[facility] Start: 05-19-2024 End: 05-19-2024 ambulatory Efewongbe Oleghe OLS Facility:[facility] Start: 05-17-2024 End: 05-17-2024 ambulatory Lizet Portere OLS Facility:[facility] Start: 05-11-2024 End: 05-11-2024 ambulatory Lizet Portere Facility:[facility] Start: 05-05-2024 End: 05-05-2024 ambulatory Lizet Portere OLS Facility:[facility] Start: 04-28-2024 End: 04-28-2024 ambulatory Lizet Portere OLS Facility:[facility] Start: 04-21-2024 End: 04-21-2024 ambulatory Lizet Portere OLS Facility:[facility] Start: 04-14-2024 End: 04-14-2024 ambulatory Lizet Portere OLS Facility:[facility] Start: 04-10-2024 End: 04-10-2024 ambulatory Lizet Portere OLS Facility:[facility] Start: 04-07-2024 End: 04-07-2024 ambulatory Jarred Lopez Facility:[facility] Start: 04-07-2024 End: 04-07-2024 ambulatory Jeffrey Peacock RN Work Phone: [employer] Comment on above: ACM TIARA RN Start: 04-04-2024 End: 04-04-2024 ambulatory Lizet Linares Facility:[facility] Start: 03-28-2024 ambulatory Jeffrey Peacock RN Work Phone: [employer] Start: 03-21-2024 Refill Dwayne Lopez MD Work Phone: [facility] Comment on above: Refill Request Start: 03-08-2024 ambulatory Dwayne Lopez MD Work Phone: Internal [facility] [place] Start: 02-25-2024 Dr. Jarred Lopez Work Phone: [facility] Start: 02-18-2024 End: 02-18-[address] Jarred Lopez Work Phone: [facility] Work Phone: Start: 02-18-2024 End: 02-18-2024 Dr. Jarred Lopez Work Phone: [facility] Start: 02-17-2024 ambulatory Annabel Agrawal [facility] Start: 02-17-2024 Patient encounter procedure [facility] [place] Comment on above: Population Health Na vigation Outreach ([facility] 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 - AWV, Care gaps, HCC gap closure - [facility]) Start: 02-11-2024 End: 02-11-[address] Jarred Lopez Work Phone: [facility] Work Phone: Start: 02-11-2024 End: 02-11-2024 Dr. Jarred Lopez Work Phone: [facility] Start: 02-10-2024 ambulatory Dwayne Lopez MD Work Phone: [facility] Comment on above: Allied Health Visit (Medication Adherence Outreach ) Start: 02-09-2024 Dr. Jarred Lopez Work Phone: [facility] Start: 02-04-2024 End: 02-04-[address] Jarred Lopez Work Phone: [facility] Work Phone: Start: 02-04-2024 End: 02-04-2024 Dr. Jarred Lopez Work Phone: [facility] Start: 02-02-2024 End: 02-02-[address] Jarred Lopez Work Phone: [facility] Work Phone: Start: 02-02-2024 End: 02-02-2024 Dr. Jarred Lopez Work Phone: [facility] Start: 02-01-2024 End: 02-01-2024 Dr. Jarred Lopez Work Phone: [facility] Work Phone: Start: 01-28-2024 Dr. Jarred Lopez Work Phone: [facility] Start: 01-24-2024 Telephone encounter Jarred Lopez MD Work Phone: [facility] Comment on above: Appointment Start: 01-21-2024 Dr. Jarred Lopez Work Phone: [facility] Start: 01-20-2024 End: 01-20-2024 Emergency department patient visit Dr. Jarred Lopez Work Phone: [facility] Work Phone: Start: 01-20-2024 End: 01-20-2024 Dr. Jarred Lopez Work Phone: [facility] Work Phone: Start: 01-19-2024 Dr. Jarred Lopez Work Phone: [facility] Start: 01-17-2024 Dr. Jarred Lopez Work Phone: [facility] Start: 01-14-2024 Dr. Jarred Lopez Work Phone: [facility] Start: 01-12-2024 Dr. Jarred Lopez Work Phone: [facility] Start: 01-07-2024 Dr. Jarred Lopez Work Phone: [facility] Start: 01-06-2024 ambulatory Rachel Perea LPN [facility] Start: 01-06-2024 Telephone encounter Jarred Lopez MD Work Phone: [facility] Comment on above: Appointment (Hospita l follow up (40 min as patient hasn't followed up as advised either LEA March 2023)) Transition Of Care Start: 01-05-2024 Dr. Jarred Lopez Work Phone: [facility] Work Phone: Start: 01-04-2024 Dr. Jarred Lopez Work Phone: [facility] Work Phone: Start: 01-03-2024 Dr. Jarred Lopez Work Phone: [facility] Work Phone: Start: 01-03-2024 Non-patient / Non-visit Dr. Adriana Lopez Work Phone: [facility] Start: 01-03-2024 Dr. Jarred Lopez Work Phone: [facility] Start: 01-02-2024 Non-patient / Non-visit Dr. Adriana Lopez Work Phone: [facility] Work Phone: Start: 01-02-2024 Dr. Jarred Lopez Work Phone: [facility] Work Phone: Start: 01-01-2024 Evaluation and manag ement of inpatient Dr. Jarred Lopez [facility] Start: 01-01-2024 End: 01-05-[address] Jarred Lopez Work Phone: [facility] Work Phone: Start: 01-01-2024 End: 01-05-2024 Dr. Jarred Lopez [facility] Work [facility]: Start: 12-31-2023 End: 12-31-[address] Jarred Lopez Work Phone: [facility] Work Phone: Start: 12-31-[address] Luis Carlos Lopez Work Phone: [facility] Start: 12-31-2023 End: 12-31-2023 Dr. Jarred Lopez Work Phone: [facility] Start: 12-29-2023 End: 12-29-[address] Jarred Lopez Work Phone: [facility] Work Phone: Start: 12-29-[address] Luis Carlos Lopez Work Phone: [facility] Start: 12-29-2023 End: 12-29-2023 Dr. Jarred Lopez Work Phone: [facility] Start: 12-24-2023 End: 12-24-[address] Jarred Lopez Work Phone: [facility] Work Phone: Start: 12-24-[address] Luis Carlos Lopez Work Phone: [facility] Start: 12-24-2023 End: 12-24-2023 Dr. Jarred Lopez Work Phone: [facility] Start: 12-17-2023 End: 12-17-[address] Jarred Lopez Work Phone: [facility] Work Phone: Start: 12-17-2023 End: 12-17-[address] Jarred Lopez Work Phone: [facility] Start: 12-17-[address] Luis Carlos Lopez Work Phone: [facility] Start: 12-17-2023 End: 12-17-2023 Dr. Jarred Lopez Work Phone: [facility] Start: 12-10-[address] Luis Carlos Lopez Work Phone: [facility] Start: 12-10-2023 Dr. Jarred Lopez Work Phone: [facility] Start: 12-07-2023 End: 12-07-2023 Dr. Jarred Lopez Work Phone: [facility] Work Phone: Start: 11-26-[address] Luis Carlos Lopez Work Phone: [facility] Start: 11-26-2023 Dr. Jarred Lopez Work Phone: [facility] Start: 11-25-2023 End: 11-25-2023 Dr. Jarred Lopez Work Phone: [facility] Work Phone: Start: 11-24-2023 Non-patient / Non-visit Dr. Adriana Lopez Work Phone: [facility] Work Phone: Start: 11-24-2023 Dr. Jarred Lopez Work Phone: [facility] Work Phone: Start: 11-23-2023 Non-patient / Non-visit Dr. Adriana Lopez Work Phone: [facility] Work Phone: Start: 11-23-2023 Dr. Jarred Lopez Work Phone: [facility] Work Phone: Start: 11-22-2023 Non-patient / Non-visit Dr. Adriana Lopez Work Phone: [facility] Work Phone: Start: 11-22-2023 Dr. Jarred Lopez Work Phone: [facility] Work Phone: Start: 11-21-2023 Non-patient / Non-visit Dr. Adriana Lopez Work Phone: [facility] Work Phone: Start: 11-21-2023 Dr. Jarred Lopez Work Phone: [facility] Work Phone: Start: 11-20-2023 Non-patient / Non-visit Dr. Adriana Lopez Work Phone: [facility] Work Phone: Start: 11-20-2023 Dr. Jarred Lopez Work Phone: [facility] Work Phone: Start: 11-19-2023 Non-patient / Non-visit Dr. Adriana Lopez Work Phone: [facility] Work Phone: Start: 11-19-2023 End: 11-24-2023 Evaluation and management of inpatient Dr. Jarred Lopez Work Phone: [facility] Work Phone: Start: 11-19-[address] Lincoln Lopez Work Phone: [facility] Work Phone: Start: 11-19-2023 End: 11-24-2023 Dr. Jarred Lopez Work Phone: [facility] Work Phone: Start: 09-20-2023 ambulatory Dwayne Lopez MD Work Phone: [facility] Comment on above: Allied Health Visit (Medication Adherence Outreach ) Start: 08-20-2023 ambulatory Dwayne Lopez MD Work Phone: [facility] Comment on above: Allied Health Visit (Medication Adherence Outreach ) Start: 08-18-2023 ambulatory Irena Hood [facility] [place] Comment on above: Population Health Na vigation Outreach ([place] care gaps ) Refill Request Start: 06-10-2023 End: 06-10-2023 Emergency department patient visit Dr. Ganesh Garcia Work Phone: [facility] Work Phone: Start: 06-10-2023 ambulatory Dwayne Lopez MD Work Phone: [facility] Comment on above: Constipation Start: 06-07-2023 Telephone encounter Jarred Lopez MD Work Phone: [facility] Comment on above: Appointment (ER foll ow up visit) Start: 06-06-2023 End: 06-06-2023 Emergency department patient visit Dr. Ganesh Garcia Work Phone: [facility] Work Phone: Start: 06-04-2023 End: 06-04-2023 Emergency department patient visit Dr. Ganesh Garcia Work Phone: [facility] Work Phone: Start: 05-20-2023 ambulatory Dwayne Lopez MD Work Phone: [facility] Comment on above: Allied Health Visit (Medication Adherence Outreach/) Refill Request Start: 05-04-2023 ambulatory Dwayne Lopez MD Work Phone: [facility] Start: 04-23-2023 End: 04-23-2023 Patient encounter procedure Vernon Zane DENISE Work Phone: [facility] Comment on above: Toothache (Primary D x) Start: 04-08-2023 ambulatory Pcp (Historical) [facility] Start: 04-07-2023 Telephone encounter Jarred Lopez MD Work Phone: [facility] Comment on above: Appointment Start: 04-07-2023 End: 04-07-2023 Patient encounter procedure Dwayne Lopez MD Work Phone: [facility] Comment on above: Generalized weakness (Primary Dx); Acute constipation; Diabetes mellitus type 2 with neurological manifestations (HCC); Diabetic polyneuropathy associated with type 2 diabetes mellitus (HCC); Hyperlipidemia associated with type 2 diabetes mellitus (HCC); Change in vision; Globus sensation; Onychomycosis; Acquired hypothyroidism; Screening for colon cancer; Encounter for immunization; Stage 3a chronic kidney disease (HCC); Hyperparathyroidism (HCC); Opioid dependence, continuous (HCC) Start: 03-28-2023 End: 03-28-2023 Emergency department patient visit Dr. Lizet Linares Work Phone: [facility] Start: 03-24-2023 End: 03-24-2023 Patient encounter procedure Dwayne Lopez MD Work Phone: [facility] Comment on above: Globus sensation (Pr imary Dx); Gastroesophageal reflux disease, unspecified whether esophagitis present Start: 03-17-2023 End: 03-17-[address] Ganesh Garcia Work Phone: [facility] Work Phone: Start: 03-16-2023 End: 03-16-[address] Lizet Linares Work Phone: [facility] Work Phone: Start: 03-16-2023 End: 03-16-[address] Lizet Linares Work Phone: [facility] Start: 03-09-2023 End: 03-09-[address] Ganesh Garcia Work Phone: [facility] Work Phone: Start: 03-02-2023 End: 03-02-[address] Lizet Linares Work Phone: [facility] Start: 03-01-2023 End: 03-01-[address] Lizet Linares Work Phone: [facility] Start: 02-23-2023 ambulatory No Pcp [facility] Comment on above: Allied Health Visit (Medication Adherence Outreach ) Start: 02-16-2023 End: 02-16-[address] Lizet Linares Work Phone: [facility] Start: 02-11-2023 End: 02-11-[address] Lizet Linares Work Phone: [facility] Start: 02-02-2023 End: 02-02-[address] Lizet Linares Work Phone: [facility] Start: 02-02-2023 Dr. Lizet Linares Work Phone: [facility] Start: 01-30-2023 End: 01-30-[address] Lizet Linares Work Phone: [facility] Start: 01-29-2023 End: 01-30-2023 Emergency department patient visit Dr. Lizet Linares Work Phone: [facility] Start: 01-29-2023 End: 01-30-2023 Dr. Lizet Linares Work Phone: [facility] Start: 01-26-2023 End: 01-26-[address] Lizet Linares Work Phone: [facility] Work Phone: Start: 01-26-2023 End: 01-26-[address] Lizet Linares Work Phone: [facility] Start: 01-26-2023 End: 01-26-2023 Dr. Lizet Linares Work Phone: [facility] Start: 01-19-2023 End: 01-19-[address] Lizet Linares Work Phone: [facility] Work Phone: Start: 01-19-2023 End: 01-19-[address] Lizet Linares Work Phone: [facility] Start: 01-19-[address] Shadia Linares Work Phone: [facility] Start: 01-19-2023 End: 01-19-2023 Dr. Lizet Linares Work Phone: [facility] Start: 01-18-2023 End: 01-18-[address] Lizet Linares Work Phone: [facility] Work Phone: Start: 01-18-2023 End: 01-18-[address] Lizet Linares Work Phone: [facility] Start: 01-18-2023 End: 01-18-2023 Dr. Liezt Linares Work Phone: [facility] Start: 01-08-2023 End: 01-08-[address] Lizet Linares Work Phone: [facility] Start: 01-08-2023 End: 01-08-2023 Dr. Lizet Linares Work Phone: [facility] Start: 01-07-2023 End: 01-07-[address] Lizet Linares Work Phone: [facility] Start: 01-07-2023 End: 01-07-2023 Dr. Lizet Linares Work Phone: [facility] Start: 01-07-2023 End: 01-07-2023 Emergency department patient visit Dr. Ganesh Garcia Work Phone: [facility] Work Phone: Start: 01-07-2023 End: 01-07-2023 Dr. Ganesh Garcia Work Phone: [facility] Start: 01-06-2023 End: 01-06-2023 Emergency department patient visit Dr. Ganesh Garcia Work Phone: [facility] Work Phone: Start: 01-06-2023 End: 01-06-2023 Dr. Ganesh Garcia Work Phone: [facility] Start: 01-05-2023 End: 01-05-[address] Lizet Linares Work Phone: [facility] Start: 01-05-2023 End: 01-05-[address] Lizet Linares Work Phone: [facility] Work Phone: Start: 01-05-2023 End: 01-05-[address] Lizet Linares Work Phone: [facility] Start: 01-05-2023 End: 01-05-2023 Dr. Ganesh Garcia Work Phone: [facility] Start: 01-04-2023 End: 01-04-[address] Lizet Linares Work Phone: [facility] Start: 01-04-2023 End: 01-04-2023 Dr. Lizet Linares Work Phone: [facility] Start: 01-01-2023 ambulatory Donnell Burr [facility] Work Phone: [facility] Comment on above: Medication Update (S tatin use review ) Start: 12-28-2022 End: 12-28-[address] Lizet Linares Work Phone: [facility] Work Phone: Start: 12-28-2022 End: 12-28-[address] Lizet Linares Work Phone: [facility] Start: 12-28-2022 End: 12-28-2022 Dr. Ganesh Garcia Work Phone: [facility] Start: 12-24-2022 End: 12-24-[address] Lizet Linares Work Phone: [facility] Start: 12-24-2022 End: 12-24-2022 Dr. Lizet Linares Work Phone: [facility] Start: 12-23-2022 End: 12-23-[address] Lizet Linares Work Phone: [facility] Work Phone: Start: 12-23-2022 End: 12-23-[address] Lizet Linares Work Phone: [facility] Start: 12-23-2022 End: 12-23-2022 Dr. Ganesh Garcia Work Phone: [facility] Start: 12-22-2022 End: 12-22-[address] Lizet Linares Work Phone: [facility] Work Phone: Start: 12-22-2022 End: 12-22-[address] Lizet Linares Work Phone: [facility] Start: 12-22-2022 End: 12-22-2022 Dr. Ganesh Garcia Work Phone: [facility] Start: 12-21-2022 End: 12-21-[address] Lizet Linares Work Phone: [facility] Start: 12-21-2022 End: 12-21-2022 Dr. Ganesh Garcia Work Phone: [facility] Start: 12-14-2022 End: 12-14-[address] Lizet Linares Work Phone: [facility] Work Phone: Start: 12-14-2022 End: 12-14-[address] Lizet Linares Work Phone: [facility] Start: 12-14-2022 End: 12-14-2022 Dr. Ganesh Garcia Work Phone: [facility] Start: 12-09-2022 Non-patient / Non-visit Dr. Barbara Garcia Work Phone: [facility] Start: 12-09-2022 Dr. Ganesh butler Work Phone: [facility] Start: 12-08-2022 End: 12-08-[address] Lizet Linares Work Phone: [facility] Start: 12-08-2022 End: 12-08-[address] Lizet Linares Work Phone: [facility] Start: 12-08-[address] Ganesh horne Work Phone: [facility] Start: 12-08-2022 End: 12-08-2022 Dr. Ganesh Garcia Work Phone: [facility] Start: 11-24-2022 End: 11-24-[address] Ganesh Garcia Work Phone: [facility] Work Phone: Start: 11-24-2022 End: 11-24-[address] Ganesh Garcia Work Phone: [facility] Start: 11-24-2022 End: 11-24-2022 Dr. Ganesh Garcia Work Phone: [facility] Start: 11-10-2022 End: 11-10-[address] Ganesh Garcia Work Phone: [phone] [place] [address] Start: 11-10-2022 End: 11-10-2022 Dr. Ganesh Garcia Work Phone: [facility] Start: 11-10-2022 End: 11-10-[address] Ganesh Garcia Work Phone: [facility] Work Phone: Start: 11-10-2022 End: 11-10-[address] Ganesh Garcia Work Phone: [facility] Start: 11-10-[address] Ganesh horne Work Phone: [phone] [address] Start: 11-10-2022 End: 11-10-2022 Dr. Ganesh Garcia Work Phone: [phone] [place] [address] Start: 11-09-2022 End: 11-09-[address] Ganesh Garcia Work Phone: [phone] [place] [address] Start: 11-09-2022 End: 11-09-2022 Dr. Ganesh Garcia Work Phone: [phone] [address] Start: 11-05-2022 End: 11-05-[address] Ganesh Garcia Work Phone: [phone] [place] [address] Start: 11-05-2022 End: 11-05-2022 Dr. Ganesh Garcia Work Phone: [phone] [address] Start: 11-05-2022 End: 11-05-2022 Emergency department patient visit Dr. Gaensh Garcia Work Phone: [phone] [place] [address]-Emergency Department Start: 11-05-2022 End: 11-05-2022 Dr. Ganesh Garcia Work Phone: [phone] [address]-Emergency Department Start: 10-30-2022 End: 10-30-[address] Ganesh Garcia Work Phone: [phone] [place] [address] Work Phone: Start: 10-30-2022 End: 10-30-[address] Ganesh Garcia Work Phone: [facility] Start: 10-30-[address] Ganesh horne Work Phone: [facility] Start: 10-30-2022 End: 10-30-2022 Dr. Ganesh Garcia Work Phone: [facility] Start: 10-28-2022 End: 10-28-[address] Ganesh Garcia Work Phone: [phone] [place] [address] Start: 10-28-2022 End: 10-28-2022 Dr. Ganesh Garcia Work Phone: [phone] [address] Start: 10-27-2022 End: 10-27-[address] Ganesh Garcia Work Phone: [facility] Work Phone: Start: 10-27-2022 End: 10-27-[address] Ganesh Garcia Work Phone: [phone] [place] [address] Start: 10-27-[address] Ganesh horne Work Phone: [phone] [place] [address] Start: 10-27-2022 End: 10-27-2022 Dr. Ganesh Garcia Work Phone: [phone] [address] Start: 10-21-2022 End: 10-21-[address] Ganesh Garcia Work Phone: [phone] [address] Start: 10-21-2022 End: 10-21-2022 Dr. Ganesh Garcia Work Phone: [phone] [place] [address] Start: 10-13-2022 End: 10-13-[address] Ganesh Garcia Work Phone: [facility] Work Phone: Start: 10-13-2022 End: 10-13-[address] Ganesh Garcia Work Phone: [facility] Start: 10-13-[address] Ganesh horne Work Phone: [facility] Start: 10-13-2022 End: 10-13-2022 Dr. Ganesh Garcia Work Phone: [facility] Start: 10-12-2022 End: 10-12-[address] Ganesh Garcia Work Phone: [phone] [place] [address] Start: 10-12-2022 End: 10-12-2022 Dr. Ganesh Garcia Work Phone: [phone] [place] [address] Start: 10-09-2022 End: 10-09-2022 Emergency department patient visit Dr. Ganesh Garcia Work Phone: [facility] Start: 10-09-2022 End: 10-09-2022 Dr. Ganesh Garcia Work Phone: [facility] Start: 09-29-2022 End: 09-29-[address] Ganesh Garcia Work Phone: [phone] [place] [address] Start: 09-29-[address] Ganesh horne Work Phone: [phone] [place] [address] Start: 09-29-2022 End: 09-29-2022 Dr. Ganesh Garcia Work Phone: [phone] [place] [address] Start: 09-15-2022 End: 09-15-[address] Ganesh Garcia Work Phone: [phone] [place] [address] Work Phone: Start: 09-15-2022 End: 09-15-[address] Ganesh Garcia Work Phone: [phone] [place] [address] Start: 09-15-[address] Ganesh horne Work Phone: [facility] Start: 09-15-2022 End: 09-15-2022 Dr. Ganesh Garcia Work Phone: [phone] [place] [address] Start: 09-11-2022 End: 09-11-[address] Ganesh Garcia Work Phone: [facility] Work Phone: Start: 09-11-2022 End: 09-11-[address] Ganesh Garcia Work Phone: [facility] Start: 09-11-[address] Ganesh horne Work Phone: [facility] Start: 09-11-2022 End: 09-11-2022 Dr. Ganesh Garcia Work Phone: [facility] Start: 09-09-2022 End: 09-09-[address] Ganesh Garcia Work Phone: [facility] Start: 09-09-2022 End: 09-09-2022 Dr. Ganesh Garcia Work Phone: [facility] Start: 09-01-2022 End: 09-01-[address] Ganesh Garcia Work Phone: [facility] Start: 09-01-2022 End: 09-01-[address] Ganesh Garcia Work Phone: [facility] Work Phone: Start: 09-01-2022 End: 09-01-[address] Ganesh Garcia Work Phone: [facility] Start: 08-24-2022 End: 08-24-[address] Ganesh Garcia Work Phone: [facility] Start: 08-24-2022 End: 08-24-2022 Emergency department patient visit Dr. Ganesh Garcia Work Phone: [facility] Start: 08-18-2022 End: 08-18-[address] Ganesh Garcia Work Phone: [facility] Work Phone: Start: 08-18-2022 End: 08-18-[address] Ganesh Garcia Work Phone: [facility] Start: 08-18-[address] Luis Carlos Lopez Work Phone: [facility] Start: 08-04-2022 End: 08-04-[address] Jarred Lopez Work Phone: [facility] Work Phone: Start: 08-04-2022 End: 08-04-[address] Jarred Lopez Work Phone: [facility] Start: 08-04-[address] Luis Carlos Lopez Work Phone: [facility] Start: 07-20-2022 End: 07-20-[address] Jarred Lopez Work Phone: [facility] Work Phone: Start: 07-20-2022 End: 07-20-[address] Jarred Lopez Work Phone: [facility] Start: 07-20-[address] Luis Carlos Lopez Work Phone: [facility] Start: 07-13-2022 End: 07-13-[address] Ganesh Garcia Work Phone: [facility] Start: 07-13-[address] Luis Carlos Lopez Work Phone: [facility] Start: 07-07-2022 End: 07-07-[address] Jarred Lopez Work Phone: [facility] Start: 07-07-[address] Luis Carlos Lopez Work Phone: [facility] Start: 07-03-2022 End: 07-03-[address] Jarred Lopez Work Phone: [facility] Work Phone: Start: 07-03-2022 End: 07-03-[address] Jarred Lopez Work Phone: [facility] Start: 07-03-[address] Luis Carlos Lopez Work Phone: [facility] Start: 07-02-2022 Non-patient / Non-visit Dr. Adriana Lopez Work Phone: [facility] Start: 07-02-2022 End: 07-02-[address] [facility] Start: 07-01-2022 End: 07-01-[address] Jarred Lopez Work Phone: [facility] Work Phone: Start: 07-01-2022 End: 07-01-[address] Jarred Lopez Work Phone: [facility] Start: 07-01-[address] Luis Carlos Lopez Work Phone: [facility] Start: 06-23-2022 End: 06-23-[address] Jarred Lopez Work Phone: [facility] Work Phone: Start: 06-23-2022 End: 06-23-[address] Jarred Lopez Work Phone: [facility] Start: 06-12-2022 End: 06-12-[address] Jarred Lopez Work Phone: [facility] Work Phone: Start: 06-12-2022 End: 06-12-[address] Jarred Lopez Work Phone: [phone] [place] [address]-Laboratory Start: 06-12-2022 End: 06-12-[address] Jarred Lopez Work Phone: [facility] Start: 06-09-2022 Non-patient / Non-visit Dr. Adriana Lopez Work Phone: [facility] Start: 06-09-2022 End: 06-09-[address] Jarred Lopez Work Phone: [facility] Start: 06-09-[address] Luis Carlos Lopez Work Phone: [facility] Start: 05-26-[address] Luis Carlos Lopez Work Phone: [facility] Start: 05-21-2022 Non-patient / Non-visit Dr. Adriana Lopez Work Phone: [facility] Start: 05-21-2022 End: 05-21-2022 Evaluation and management of inpatient Dr. Jarred Lopez Work Phone: [facility] Start: 05-20-2022 End: 05-20-[address] Jarred Lopez Work Phone: [facility] Start: 05-20-[address] Luis Carlos Lopez Work Phone: [facility] Start: 05-12-2022 End: 05-12-[address] Jarred Lopez Work Phone: [facility] Start: 05-12-[address] Luis Carlos Lopez Work Phone: [facility] Start: 05-04-2022 End: 05-04-[address] Jarred Lopez Work Phone: [facility] Start: 05-03-2022 End: 05-04-2022 Emergency department patient visit Dr. Jarred Lopez Work Phone: [facility] Start: 05-03-2022 End: 05-04-2022 Non-patient / Non-visit Dr. Jarred Lopez Work Phone: [facility] Start: 04-28-2022 End: 04-28-[address] Jarred Lopez Work Phone: [facility] Start: 04-28-2022 End: 04-28-[address] Jarred Lopez Work Phone: [facility] Start: 04-28-[address] Luis Carlos Lopez Work Phone: [facility] Start: 04-25-2022 Non-patient / Non-visit Dr. Adriana Lopez Work Phone: [facility] Start: 04-25-2022 Non-patient / Non-visit Dr. Adriana Lopez Work Phone: [facility] Start: 04-24-2022 Non-patient / Non-visit Dr. Adriana Lopez Work Phone: [facility] Start: 04-24-2022 End: 04-25-2022 Evaluation and management of inpatient Dr. Jarred Lopez Work Phone: [facility] Start: 04-17-2022 End: 04-17-[address] Jarred Lopez Work Phone: [facility] Start: 04-17-[address] Luis Carlos Lopez Work Phone: [facility] Start: 04-13-2022 End: 04-13-[address] Jarred Lopez Work Phone: [facility] Start: 04-13-[address] Luis Carlos Lopez Work Phone: [facility] Start: 04-06-2022 End: 04-06-[address] Jarred Lopez Work Phone: [facility] Start: 04-03-2022 [facility] Shital Patel [facility] Comment on above: Population Health Na vigation Outreach (HCC) Start: 03-30-2022 Non-patient / Non-visit Dr. Adriana Lopez Work Phone: [facility] Start: 03-29-2022 Non-patient / Non-visit Dr. Adriana Lopez Work Phone: [facility] Start: 03-28-2022 Non-patient / Non-visit Dr. Adriana Lopez Work Phone: [facility] Start: 03-27-2022 Non-patient / Non-visit Dr. Adriana Lopez Work Phone: [facility] Start: 03-26-2022 Non-patient / Non-visit Dr. Adriana Lopez Work Phone: [facility] Start: 03-25-2022 Non-patient / Non-visit Dr. Adriana Lopez Work Phone: [facility] Start: 03-24-2022 Non-patient / Non-visit Dr. Adriana Lopez Work Phone: [facility] Start: 03-23-2022 Non-patient / Non-visit Dr. Adriana Lopez Work Phone: [facility] Start: 03-22-2022 Non-patient / Non-visit Dr. Adriana Lopez Work Phone: [facility] Start: 03-21-2022 Non-patient / Non-visit Dr. Adriana Lopez Work Phone: [facility] Start: 03-20-2022 Non-patient / Non-visit Dr. Adriana Lopez Work Phone: [facility] Start: 03-20-2022 End: 03-30-2022 Evaluation and management of inpatient Dr. Jarred Lopez Work Phone: [facility] Start: 02-24-2022 End: 02-24-2022 Emergency department patient visit [facility] Start: 01-13-2022 End: 01-13-2022 Emergency department patient visit [facility] Start: 09-27-2021 End: 09-27-2021 Emergency department patient visit [facility] Start: 09-29-2018 Patient encounter procedure Tj L Calixto Facility:[facility] Start: 08-03-2018 Patient encounter procedure Tj L Calixto Facility:[facility] Start: 06-01-2018 Patient encounter procedure Tj L Calixto Facility:[facility] Start: 03-08-2018 Ambulatory SIXTO CALIXTO Facility :[facility] Start: 02-22-2018 Patient encounter procedure Tj L Calixto Facility:[facility] Start: 11-30-2017 Patient encounter procedure Tj L Calixto Facility:[facility] Start: 12-10-2008 End: 06-03-2015 Patient encounter status Annabel Agrawal MA Moypatricia salguero Work Phone: Procedures Date Procedure Procedure Detail Performing Clinician Start: 01-22-2025 Plain chest X-ray Dr. Tal Linares MD Work Phone: Start: 10-24-2024 Computed tomography of abdomen and pelvis with intravenous contrast Dr. Lizet Linares MD Work Phone: Start: 10-06-2024 Bilateral mammography Eliza Linares MD Work Phone: Start: 10-06-[address] Lizet Linares MD Work Phone: Start: 02-09-[address] Sivakumar Lopez Work Phone: Start: 01-20-2024 Plain chest X-ray Dr. Zeus Lopez Work Phone: Start: 01-19-2024 [address] diffic[address] e detection Dr. Jarred Lopez Work Phone: Start: 01-17-[address] Sivakumar Lopez Work Phone: Start: 01-05-[address] Jarred Lopez Work Phone: Start: 01-01-2024 CT angiography of ch est with contrast Dr. Jarred Lopez Work Phone: Start: 01-01-2024 Plain chest X-ray Dr. Zeus Lopez Work Phone: Start: 12-29-[address] Sivakumar Lopez Work Phone: Start: 11-24-[address] Jarred Lopez Work Phone: Start: 11-20-[address] Sivakumar Lopez Work Phone: Start: 11-19-20[address] [place] parasites identification [address] Jarred Lopez Work Phone: Start: 06-10-2023 Diagnostic radiograp hy of abdomen Dr. Ganesh Garcia Work Phone: Start: 06-04-2023 Computed tomography of abdomen and pelvis with intravenous contrast Dr. Ganesh Garcia Work Phone: Start: 03-28-2023 Computed tomography of abdomen and pelvis with intravenous contrast Dr. Lizet Linares Work Phone: Start: 01-29-2023 Plain chest X-ray Dr. Tal Linares Work Phone: Start: 01-06-2023 CT of abdomen and pe lvis without contrast Dr. Ganesh Garcia Work Phone: Start: 11-05-2022 Plain chest X-ray Dr. Porsha Garcia Work Phone: Start: 10-09-2022 Computed tomography of abdomen and pelvis with intravenous contrast Dr. Ganesh Garcia Work Phone: Start: 08-24-2022 CT angiography of ch est with contrast Dr. Ganesh Garcia Work Phone: Start: 08-24-2022 Plain chest X-ray Dr. Porsha Garcia Work Phone: Start: 05-21-2022 CT angiography of ch est with contrast Dr. Jarred Lopez Work Phone: Start: 05-03-2022 Plain chest X-ray Dr. Zeus Lopez Work Phone: Start: 04-25-2022 Cardiovascular stres s test using pharmacologic stress agent Dr. Jarred Lopez Work Phone: Start: 04-24-2022 Plain chest X-ray Dr. Zeus Lopez Work Phone: Start: 03-30-2022 End: 03-30-[address] Jarred howe Work Phone: Start: 02-24-2022 MRI of lumbar spine with contrast Start: 02-24-2022 MRI of thoracic spin e with contrast Start: 01-13-2022 Computed tomography of abdomen and pelvis with intravenous contrast Start: 01-13-2022 Urine culture Start: 09-27-2021 Investigation of tra nsfusion reaction Start: 09-27-2021 End: 09-27-2021 Microbial culture, routine Start: 11-30-2017 Follow-up visit FOLLOW UP [facility] Start: 06-21-2017 Adult depression scr eening assessment Shital Jorge MA Start: 01-22-2017 Mammography Shital Michael MA [...] stick/tablet reagnt non-auto micrscpy Brenda Arthur MD Urine culture Dr. Jarred Lopez Work Phone: Urine culture Dr. Ganesh butler Work Phone: Viral antigen assay Dr. Lincoln Lopez Work Phone: Plan of Treatment Date Care Activity Detail Author Start: 06-09-2031 Urine microalbumin profile [facility] Start: 06-25-2025 Influenza vaccination Influenza Vaccine (Season Ended) [facility] Start: 01-22-2025 [facility] Start: 01-22-2025 [facility] Start: 10-24-2024 [facility] Start: 06-25-2024 Covid-19 Vaccine ( season) Covid-19 Vaccine ( season) [facility] Start: 06-25-2024 Influenza vaccination [facility] Start: 04-18-2024 End: 04-18-2024 Patient encounter procedure 04/18/2024 12:20 PM EDT Office Visit [facility] [address] [place] [address] [employer] [place] APRN.PRACTICE ARCHITECT [address] [place] [address] Yearly Exam [facility] Comment on above: Yearly Exam Start: 04-07-2024 3 comp foot exam completed DIABETIC FOOT EXAM [facility] Start: 04-07-2024 ANNUAL PCP TEAM CHRONIC DISEASE VISIT ANNUAL PCP TEAM CHRONIC DISEASE VISIT [facility] Start: 04-07-2024 COVID-19 VACCINE (4 - Booster for Pfizer series) COVID-19 VACCINE (4 - Booster for Pfizer series) [facility] Comment on above: Postponed from 07/28/2022 (Declined at t his time) Start: 04-07-2024 COVID-19 VACCINE (4 - Pfizer series) COVID-19 VACCINE (4 - Pfizer series) [facility] Comment on above: Postponed from 07/28/2022 (Declined at t his time) Start: 04-07-2024 Diabetic foot examination Diabetic Foot Exam [facility] Start: 04-07-2024 SHINGRIX VACCINE (1 of 2) SHINGRIX VACCINE (1 of 2) [facility] Comment on above: Postponed from 2013 (Declined at t his time) Start: 03-30-2024 End: 03-30-2024 Patient encounter procedure 03/30/2024 12:40 PM EDT Office Visit [facility] [address] [place] [address] Dwayne Lopez MD [address] [place] [address] ER follow up; [facility] 03/24/2024 head injury-PCP has ER summary on desk [facility] Comment on above: ER follow up; [facility] 03/24/2024 head injury- PCP has ER summary on desk Start: 03-24-2024 ANNUAL PCP TEAM CHRONIC DISEASE VISIT ANNUAL PCP TEAM CHRONIC DISEASE VISIT [facility] Start: 02-25-2024 End: 02-25-2024 Blood chemistry [facility] Start: 02-25-2024 End: 02-25-2024 Thyroid stimulating hormone measurement [facility] Start: 02-25-2024 End: 02-25-2024 [facility] Start: 01-20-2024 End: 01-20-2024 [facility] Start: 01-20-2024 [facility] Start: 01-17-2024 Urine culture [facility] Start: 01-17-2024 [facility] Start: 01-05-2024 Patient discharge [facility] Start: 01-01-2024 End: 01-01-2024 Following clinical pathway protocol [facility] Start: 01-01-2024 Assessment of risk of venous thromboembolism [facility] Start: 01-01-2024 Care regimes management [facility] Start: 01-01-2024 Fall prevention [facility] Start: 01-01-2024 Inhalation therapy procedure [facility] Start: 01-01-2024 Insertion of catheter into peripheral vein [facility] Start: 01-01-2024 Introduction of urinary catheter [facility] Start: 01-01-2024 Measuring intake and output [facility] Start: 01-01-2024 Notification of physician [facility] Start: 01-01-2024 Oxygen therapy [facility] Start: 01-01-2024 Providing care according to standard [facility] Start: 01-01-2024 Provision of activity privileges [facility] Start: 01-01-2024 Referral to occupational therapist [facility] Start: 01-01-2024 Referral to service [facility] Start: 01-01-2024 [facility] Start: 01-01-2024 Verification routine [facility] Start: 01-01-2024 Admission procedure [facility] Start: 01-01-2024 Hospital admission, emergency, from emergency room, medical nature [facility] Start: 01-01-2024 Patient referral to dietitian [facility] Start: 11-24-2023 Patient discharge [facility] Start: 11-22-2023 [facility] Start: 11-22-2023 Blood chemistry [facility] Start: 11-21-2023 Blood chemistry [facility] Start: 11-21-2023 [facility] Start: 11-20-2023 Blood chemistry [facility] Start: 11-19-2023 End: 11-19-2023 [facility] Start: 11-19-2023 Following clinical pathway protocol [facility] Start: 11-19-2023 Ambulation without limitation [facility] Start: 11-19-2023 Assessment of risk of venous thromboembolism [facility] Start: 11-19-2023 Care regimes management [facility] Start: 11-19-2023 Incentive spirometry [facility] Start: 11-19-2023 Insertion of catheter into peripheral vein [facility] Start: 11-19-2023 Measuring intake and output [facility] Start: 11-19-2023 Notification of physician [facility] Start: 11-19-2023 Providing care according to standard [facility] Start: 11-19-2023 Provision of activity privileges [facility] Start: 11-19-2023 Referral to occupational therapist [facility] Start: 11-19-2023 Referral to service [facility] Start: 11-19-2023 Verification routine [facility] Start: 11-19-2023 Admission procedure [facility] Start: 11-19-2023 Enteric precautions [facility] Start: 11-19-2023 Measurement of occult blood in stool specimen using immunoassay [facility] Start: 11-19-2023 Patient referral to dietitian [facility] Start: 10-25-2023 Behavioral Health Screening [facility] Health Screening [facility] Start: 10-25-2023 Depression Assessment Depression Assessment [facility] Start: 2023 Hepatitis B Vaccine (1 of 3 - Risk 3-dose series) Hepatitis B Vaccine (1 of 3 - Risk 3-dose series) [facility] Start: 2023 RSV Vaccine (1 - 1-dose 60+ series) RSV Vaccine (1 - 1-dose 60+ series) [facility] Start: 2023 RSV Vaccine (1 - Risk 60-74 years 1-dose series) RSV Vaccine (1 - Risk 60-74 years 1-dose series) [facility] Start: 06-25-2023 Covid-19 Vaccine ( season) Covid-19 Vaccine ( season) [facility] Start: 06-25-2023 Influenza vaccination [facility] Start: 04-07-2023 End: 06-07-2023 ALBUMIN/CREAT RATIO RND UR ALBUMIN/CREAT RATIO RND UR Lab Routine Diabetes mellitus type 2 with neurological manifestations (HCC) Expected: 04/07/2023, Expires: 06/07/2023 [facility] Work Phone: Comment on above: Expected: 04/07/2023, Expires: 3 Start: 04-07-2023 End: 06-07-2023 CBC W Auto Differential panel - Blood CBC + DIFF Lab Routine Diabetes mellitus type 2 with neurological manifestations (HCC) Expected: 04/07/2023, Expires: 06/07/2023 [facility] Work Phone: Comment on above: Expected: 04/07/2023, Expires: Start: 04-07-2023 End: 06-07-2023 Comprehensive metabolic 2000 panel - Serum or Plasma COMP METABOLIC PANEL Lab Routine Diabetes mellitus type 2 with neurological manifestations (HCC) Expected: 04/07/2023, Expires: 06/07/2023 [facility] Work Phone: Comment on above: Expected: 04/07/2023, Expires: 3 Start: 04-07-2023 End: 06-07-2023 Hemoglobin A1c in Blood HGB A1C Lab Routine Diabetes mellitus type 2 with neurological manifestations (HCC) Expected: 04/07/2023, Expires: 06/07/2023 [facility] Work Phone: Comment on above: Expected: 04/07/2023, Expires: 3 Start: 04-07-2023 End: 06-07-2023 Hepatic function 2000 panel - Serum or Plasma HEPATIC FUNCTION PNL Lab Routine Onychomycosis Expected: 04/07/2023, Expires: 06/07/2023 [facility] Work Phone: Comment on above: Expected: 04/07/2023, Expires: 3 Start: 04-07-2023 End: 06-07-2023 LIPID PANEL, NONFASTING LIPID PANEL, NONFASTING Lab Routine Diabetes mellitus type 2 with neurological manifestations (HCC) Expected: 04/07/2023, Expires: 06/07/2023 [facility] Work Phone: Comment on above: Expected: 04/07/2023, Expires: 3 Start: 04-07-2023 End: 06-07-2023 Thyrotropin [Units/volume] in Serum or Plasma TSH BLD Lab Routine Acquired hypothyroidism Expected: 04/07/2023, Expires: 06/07/2023 [facility] Work Phone: Comment on above: Expected: 04/07/2023, Expires: 3 Start: 01-29-2023 [facility] Start: 11-05-2022 [facility] Start: 10-25-2022 DEPRESSION ASSESSMENT DEPRESSION ASSESSMENT [facility] Start: 10-09-2022 [facility] Work Phone: Start: 08-24-2022 [facility] Start: 07-28-2022 COVID-19 VACCINE (4 - Booster for Pfizer series) COVID-19 VACCINE (4 - Booster for Pfizer series) [facility] Start: 07-13-2022 [facility] Work Phone: Start: 06-25-2022 Influenza vaccination [facility] Start: 05-22-2022 Blood chemistry [facility] Work Phone: Start: 05-22-2022 Complete blood count [facility] Work Phone: Start: 05-22-2022 Partial thromboplastin time, activated [facility] Work Phone: Start: 05-22-2022 Prothrombin time [facility] Work Phone: Start: 05-21-2022 Notification of physician [facility] Work Phone: Start: 05-21-2022 Patient discharge [facility] Work Phone: Start: 05-21-2022 Provision of activity privileges [facility] Work Phone: Start: 05-21-2022 Scheduling [facility] Work Phone: Start: 05-21-2022 Taking patient vital signs [facility] Work Phone: Start: 05-21-2022 Vascular disease risk assessment [facility] Work Phone: Start: 05-21-2022 [facility] Work Phone: Start: 05-21-2022 Referral to occupational therapist [facility] Work Phone: Start: 05-21-2022 Referral to service [facility] Work Phone: Start: 05-21-2022 Catheterization of vein [facility] Work Phone: Start: 05-21-2022 Medication not administered [facility] Work Phone: Start: 05-21-2022 [facility] Work Phone: Start: 05-21-2022 Application of intermittent pneumatic compression device [facility] Work Phone: Start: 05-21-2022 Following clinical pathway protocol [facility] Work Phone: Start: 05-21-2022 Assessment of risk of venous thromboembolism [facility] Work Phone: Start: 05-21-2022 Care regimes management [facility] Work Phone: Start: 05-21-2022 Insertion of catheter into peripheral vein [facility] Work Phone: Start: 05-21-2022 Introduction of urinary catheter [facility] Work Phone: Start: 05-21-2022 Measuring intake and output [facility] Work Phone: Start: 05-21-2022 Oxygen therapy [facility] Work Phone: Start: 05-21-2022 Providing care according to standard [facility] Work Phone: Start: 05-21-2022 Provision of activity privileges [facility] Work Phone: Start: 05-21-2022 Referral to cfd engineer [facility] Work Phone: Start: 05-21-2022 Referral to service [facility] Work Phone: Start: 05-21-2022 [facility] Work Phone: Start: 05-21-2022 Verification routine [facility] Work Phone: Start: 05-21-2022 Admission procedure [facility] Work Phone: Start: 05-03-2022 [facility] Work Phone: Start: 04-25-2022 Patient discharge [facility] Work Phone: Start: 04-24-2022 Ambulation without limitation [facility] Work Phone: Start: 04-24-2022 Assessment of risk of venous thromboembolism [facility] Work Phone: Start: 04-24-2022 Care regimes management [facility] Work Phone: Start: 04-24-2022 Catheterization of vein [facility] Work Phone: Start: 04-24-2022 Insertion of catheter into peripheral vein [facility] Work Phone: Start: 04-24-2022 Measuring intake and output [facility] Work Phone: Start: 04-24-2022 Oxygen therapy [facility] Work Phone: Start: 04-24-2022 Providing care according to standard [facility] Work Phone: Start: 04-24-2022 Referral to service [facility] Work Phone: Start: 04-24-2022 [facility] Work Phone: Start: 04-24-2022 Following clinical pathway protocol [facility] Work Phone: Start: 04-24-2022 Admission procedure [facility] Work Phone: Start: 03-30-2022 Patient discharge [facility] Work Phone: Start: 03-30-2022 [facility] Work Phone: Start: 03-25-2022 Oxygen therapy [facility] Work Phone: Start: 03-20-2022 Assessment of risk of venous thromboembolism [facility] Work Phone: Start: 03-20-2022 Catheterization of vein [facility] Work Phone: Start: 03-20-2022 Insertion of catheter into peripheral vein [facility] Work Phone: Start: 03-20-2022 Measuring intake and output [facility] Work Phone: Start: 03-20-2022 Providing care according to standard [facility] Work Phone: Start: 03-20-2022 Provision of activity privileges [facility] Work Phone: Start: 03-20-2022 Referral to occupational therapist [facility] Work Phone: Start: 03-20-2022 Referral to service [facility] Work Phone: Start: 03-20-2022 [facility] Work Phone: Start: 03-20-2022 Following clinical pathway protocol [facility] Work Phone: Start: 03-20-2022 Admission procedure [facility] Work Phone: Start: 01-13-2022 Bacteria identified in Urine by Culture Urine Culture [facility] Work Phone: Start: 07-21-2021 COVID-19 VACCINE (3 - Booster for Pfizer series) COVID-19 VACCINE (3 - Booster for Pfizer series) [facility] Start: 04-15-2021 COVID-19 VACCINE (3 - Booster for Pfizer series) COVID-19 VACCINE (3 - Booster for Pfizer series) [facility] Start: 03-25-2021 Glaucoma screening Dilated Retinal Exam [facility] Start: 03-25-2021 Hepatitis C antibody, confirmatory test DILATED RETINAL EXAM [facility] Start: 01-24-2021 ANNUAL PCP TEAM CHRONIC DISEASE VISIT ANNUAL PCP TEAM CHRONIC DISEASE VISIT [facility] Start: 12-25-2020 Hepatitis B screening URINE ALBUMIN:CREATININE RATIO [facility] Start: 10-27-2020 COLORECTAL CANCER SCREENING COLORECTAL CANCER SCREENING [facility] Start: 10-27-2020 FECAL OCCULT BLOOD FECAL OCCULT BLOOD [facility] Start: 10-27-2020 Screening for malignant neoplasm of colon [facility] Start: 10-26-2020 Creatinine measurement Serum Creatinine [facility] Start: 10-26-2020 SERUM CREATININE SERUM CREATININE [facility] Start: 09-18-2020 Hepatitis B surface antibody level LDL CHOLESTEROL [facility] Start: 09-04-2020 Complete blood count Hemoglobin/Hematocrit [facility] Start: 02-22-2020 Hemoglobin A1c measurement HbA1C [facility] Start: 02-22-2020 Hemoglobin A1c/Hemoglobin.total in Blood HBA1C [facility] Start: 07-04-2019 PNEUMOCOCCAL (2 - PCV) PNEUMOCOCCAL (2 - PCV) [facility] Start: 06-21-2018 3 comp foot exam completed DIABETIC FOOT EXAM [facility] Start: 06-21-2018 Adult depression screening assessment DEPRESSION SCREENING [facility] Start: 01-22-2018 Mammography [facility] Start: 01-22-2018 Screening for malignant neoplasm of breast Mammogram Screening [facility] Start: 07-28-2017 End: 07-28-2017 Appointment [facility] Work Phone: Start: 2013 SHINGRIX VACCINE (1 of 2) SHINGRIX VACCINE (1 of 2) [facility] Start: 08-14-2010 End: 08-14-2010 Follow Up Appt 1 month Follow Up Appt 1 month [facility] Work Phone: Start: 08-14-2010 End: 08-14-2010 Iiv3 vaccine split virus 0.5 ml dosage im use Flu vaccine > age 3 yr (with preservative) [facility] Work Phone: Start: 03-10-2010 End: 08-11-2010 Blood count complete automated *CBC without Diff [facility] Work Phone: Start: 03-10-2010 End: 08-11-2010 Comprehensive metabolic panel *CMP Complete Metabolic Panel [facility] Work Phone: Start: 03-10-2010 End: 03-10-2010 Follow Up Appt 2 weeks Follow Up Appt 2 weeks [facility] Work Phone: Start: 03-10-2010 End: 11-19-2014 Gastroenterology Referral Gastroenterology Referral Kristopher Santana, [address], [address], [place], [address] [facility] Work Phone: Start: 03-10-2010 End: 08-11-2010 Hemoglobin A1c/Hemoglobin.total mass fraction (Bld) *HgA1C [facility] Work Phone: Start: 03-10-2010 End: 08-11-2010 Protein mass conc *Lipid Profile [facility] Work Phone: Start: 03-10-2010 End: 08-11-2010 Thyrotropin Qn *TSH [facility] Work Phone: Start: 03-10-2010 End: 08-11-2010 Urinls dip stick/tablet reagnt non-auto micrscpy *Urinalysis [facility] Work Phone: Start: 2008 COLOGUARD (FIT-DNA) COLOGUARD (FIT-DNA) [facility] Start: 2008 Colonoscopy COLONOSCOPY [facility] Start: [address] COLONOGRAPHY [facility] Start: 2008 Screening for malignant neoplasm of colon [facility] Start: 2008 SIGMOIDOSCOPY SIGMOIDOSCOPY [facility] Start: 1982 HEPATITIS B (1 of 3 - Risk 3-dose series) HEPATITIS B (1 of 3 - Risk 3-dose series) [facility] Start: 1981 Anxiety Screening Anxiety Screening [facility] Start: 1981 Depression Screening Depression Screening [facility] Alanine aminotransfe rase [Enzymatic activity/volume] in Serum or Plasma [facility] Work Phone: Alanine aminotransfe rase [Enzymatic activity/volume] in Serum or Plasma [facility] Alanine aminotransfe rase [Enzymatic activity/volume] in Serum or Plasma [facility] Albumin [Mass/volume ] in Serum or Plasma [facility] Work Phone: Albumin [Mass/volume ] in Serum or Plasma [facility] Albumin [Mass/volume ] in Serum or Plasma [facility] Alkaline phosphatase [Enzymatic activity/volume] in Serum or Plasma [facility] Work Phone: Alkaline phosphatase [Enzymatic activity/volume] in Serum or Plasma [facility] Alkaline phosphatase [Enzymatic activity/volume] in Serum or Plasma [facility] Anion gap measurement [facility] Work Phone: Anion gap measurement [facility] Anion gap measurement [facility] Anion gap measurement [facility] Anion gap measurement [facility] Anion gap measurement [facility] Aspartate aminotransferase [Enzymatic activity/volume] in Serum or Plasma [facility] Work Phone: Aspartate aminotransferase [Enzymatic activity/volume] in Serum or Plasma [facility] Aspartate aminotransferase [Enzymatic activity/volume] in Serum or Plasma [facility] Bacteria identified in Urine by Culture Urine Culture [facility] Work Phone: Bilirubin measuremen t, urine [facility] Bilirubin, total measurement [facility] Work Phone: Bilirubin, total measurement [facility] Bilirubin, total measurement [facility] Bilirubin.direct [Mass/volume] in Serum or Plasma [facility] BUN/Creatinine ratio [facility] Work Phone: BUN/Creatinine ratio [facility] BUN/Creatinine ratio [facility] BUN/Creatinine ratio [facility] BUN/Creatinine ratio [facility] BUN/Creatinine ratio [facility] Calcium [Mass/volume ] in Serum or Plasma [facility] Work Phone: Calcium [Mass/volume ] in Serum or Plasma [facility] Calcium [Mass/volume ] in Serum or Plasma [facility] Calcium [Mass/volume ] in Serum or Plasma [facility] Calcium [Mass/volume ] in Serum or Plasma [facility] Calcium [Mass/volume ] in Serum or Plasma [facility] Carbon dioxide, tota l [Moles/volume] in Serum or Plasma [facility] Work Phone: Carbon dioxide, tota l [Moles/volume] in Serum or Plasma [facility] Carbon dioxide, tota l [Moles/volume] in Serum or Plasma [facility] Carbon dioxide, tota l [Moles/volume] in Serum or Plasma [facility] Carbon dioxide, tota l [Moles/volume] in Serum or Plasma [facility] Carbon dioxide, tota l [Moles/volume] in Serum or Plasma [facility] Cardiac event recording [facility] Chloride [Moles/volu me] in Serum or Plasma [facility] Work Phone: Chloride [Moles/volu me] in Serum or Plasma [facility] Chloride [Moles/volu me] in Serum or Plasma [facility] Chloride [Moles/volu me] in Serum or Plasma [facility] Chloride [Moles/volu me] in Serum or Plasma [facility] Chloride [Moles/volu me] in Serum or Plasma [facility] Cholesterol [Mass/vo lume] in Serum or Plasma [facility] Work Phone: Cholesterol in HDL [Mass/volume] in Serum or Plasma [facility] Work Phone: Cholesterol in LDL [Mass/volume] in Serum or Plasma [facility] Work Phone: Clostridioides diffi cile DNA [Presence] in Unspecified specimen by ZHANE with probe detection [facility] Creatinine [Moles/vo lume] in Serum or Plasma [facility] Work Phone: Creatinine [Moles/vo lume] in Serum or Plasma [facility] Creatinine [Moles/vo lume] in Serum or Plasma [facility] Creatinine [Moles/vo lume] in Serum or Plasma [facility] Creatinine [Moles/vo lume] in Serum or Plasma [facility] Creatinine [Moles/vo lume] in Serum or Plasma [facility] End: 03-08-2026 DBT Breast - bilateral screening [facility] SCREEN[facility] Radiology Routine Encounter for screening mammogram for breast cancer 1 Occurrences starting 02/06/2025 until 03/08/2026 [facility] Work Phone: Comment on above: 1 Occurrences starting 02/06/2025 until 03/08/2026 Erythrocyte mean corpuscular volume determination [facility] Erythrocyte mean corpuscular volume determination [facility] Erythrocyte mean corpuscular volume determination [facility] Erythrocyte mean corpuscular volume determination [facility] Gastrointestinal pathogens panel - Stool by ZHANE with probe detection [facility] Glucose [Mass/volume ] in Serum or Plasma [facility] Work Phone: Glucose [Mass/volume ] in Serum or Plasma [facility] Glucose [Mass/volume ] in Serum or Plasma [facility] Glucose [Mass/volume ] in Serum or Plasma [facility] Glucose [Mass/volume ] in Serum or Plasma [facility] Glucose [Mass/volume ] in Serum or Plasma [facility] Hematocrit [Volume Fraction] of Blood [facility] Work Phone: Hematocrit [Volume Fraction] of Blood [facility] Hematocrit [Volume Fraction] of Blood [facility] Hematocrit [Volume Fraction] of Blood [facility] Hematocrit [Volume Fraction] of Blood [facility] Hemoglobin [Mass/vol ume] in Blood [facility] Work Phone: Hemoglobin [Mass/vol ume] in Blood [facility] Hemoglobin [Mass/vol ume] in Blood [facility] Hemoglobin [Mass/vol ume] in Blood [facility] Hemoglobin [Mass/vol ume] in Blood [facility] Hemoglobin [Presence ] in Urine [facility] Hemoglobin A1c/Hemoglobin.total in Blood [facility] INR in Blood by Coagulation assay [facility] Work Phone: Lactoferrin [Presenc e] in Stool by Immunoassay [facility] Leukocytes [#/volume ] in Blood [facility] Work Phone: Leukocytes [#/volume ] in Blood [facility] Leukocytes [#/volume ] in Blood [facility] Leukocytes [#/volume ] in Blood [facility] Leukocytes [#/volume ] in Blood [facility] Lipid 1996 panel - S sondra or Plasma [facility] Work Phone: Magnesium [Mass/volu me] in Serum or Plasma [facility] Mean corpuscular hemoglobin concentration determination [facility] Work Phone: Mean corpuscular hemoglobin concentration determination [facility] Mean corpuscular hemoglobin concentration determination [facility] Mean corpuscular hemoglobin concentration determination [facility] Mean corpuscular hemoglobin concentration determination [facility] Mean corpuscular hemoglobin determination [facility] Work Phone: Mean corpuscular hemoglobin determination [facility] Mean corpuscular hemoglobin determination [facility] Mean corpuscular hemoglobin determination [facility] Mean corpuscular hemoglobin determination [facility] Measurement of keton es in urine using dipstick [facility] Measurement of renal function [facility] Work Phone: Measurement of renal function [facility] Measurement of renal function [facility] Measurement of renal function [facility] Measurement of renal function [facility] Measurement of renal function [facility] End: 04-07-2025 MG Breast Screening [facility] Radiology Routine Encounter for screening mammogram for breast cancer 1 Occurrences starting 03/08/2024 until 04/07/2025 [facility] Work Phone: Comment on above: 1 Occurrences starting 03/08/2024 until 04/07/2025 Microscopic urinalysis [facility] Neutrophil count [facility] Work Phone: Neutrophil count [facility] Neutrophil count [facility] Neutrophil count [facility] Neutrophil count [facility] Neutrophil percent differential count [facility] Work Phone: Neutrophil percent differential count [facility] Neutrophil percent differential count [facility] Neutrophil percent differential count [facility] Neutrophil percent differential count [facility] Ova and parasites identified in Unspecified specimen by Light microscopy [facility] Partial thromboplast in time, activated [facility] Work Phone: Patient Education [facility] Now in Work Phone: Patient referral [facility] Work Phone: pH of Urine [facility] Platelets [#/volume] in Blood [facility] Work Phone: Platelets [#/volume] in Blood [facility] Platelets [#/volume] in Blood [facility] Platelets [#/volume] in Blood [facility] Platelets [#/volume] in Blood [facility] Polysomnography [facility] Polysomnography [facility] Potassium [Moles/vol ume] in Serum or Plasma [facility] Work Phone: Potassium [Moles/vol ume] in Serum or Plasma [facility] Potassium [Moles/vol ume] in Serum or Plasma [facility] Potassium [Moles/vol ume] in Serum or Plasma [facility] Potassium [Moles/vol ume] in Serum or Plasma [facility] Potassium [Moles/vol ume] in Serum or Plasma [facility] Prothrombin time [facility] Work Phone: Red blood cell count [facility] Work Phone: Red blood cell count [facility] Red blood cell count [facility] Red blood cell count [facility] Red blood cell count [facility] Red cell distributio n width determination [facility] Work Phone: Red cell distributio n width determination [facility] Red cell distributio n width determination [facility] Red cell distributio n width determination [facility] Red cell distributio n width determination [facility] Serum inorganic phos phate measurement [facility] Sodium [Moles/volume ] in Serum or Plasma [facility] Work Phone: Sodium [Moles/volume ] in Serum or Plasma [facility] Sodium [Moles/volume ] in Serum or Plasma [facility] Sodium [Moles/volume ] in Serum or Plasma [facility] Sodium [Moles/volume ] in Serum or Plasma [facility] Sodium [Moles/volume ] in Serum or Plasma [facility] Specific gravity of Urine [facility] T4 free measurement [facility] Work Phone: Total protein measurement [facility] Work Phone: Total protein measurement [facility] Total protein measurement [facility] Triglycerides measurement [facility] Work Phone: Troponin I measurement [facility] Work Phone: Urea nitrogen [Mass/volume] in Serum or Plasma [facility] Work Phone: Urea nitrogen [Mass/volume] in Serum or Plasma [facility] Urea nitrogen [Mass/volume] in Serum or Plasma [facility] Urea nitrogen [Mass/volume] in Serum or Plasma [facility] Urea nitrogen [Mass/volume] in Serum or Plasma [facility] Urea nitrogen [Mass/volume] in Serum or Plasma [facility] Urinalysis, blood, qualitative [facility] Urine dipstick for glucose [facility] Urine dipstick for leukocyte esterase [facility] Urine dipstick for nitrite [facility] Urine dipstick for protein [facility] Urine examination [facility] Urine microscopy: epithelial cells [facility] Urine Microscopy: wh ite cells [facility] Urobilinogen [Presen ce] in Urine [facility] US Carotid arteries [facility] Work Phone: US Heart [facility] Work Phone: VLDL cholesterol measurement [facility] Work Phone: [facility] Immunizations Immunization Date Immunization Notes Care Provider Kimani qureshi 11-22-2023 influenza, injectabl e, quadrivalent, preservative free Dr. Jarred Lopez Work Phone: [facility] 11-22-2023 influenza virus vaccine, unspecified formulation Irena Wild [facility] 04-07-2023 pneumococcal (PCV20) vaccine, 20 valent (PREVNAR 20) Dwayne Lopez MD Work Phone: [facility] 04-07-2023 pneumococcal Conjuga te, unspecified formulation Dwayne Lopez MD Work Phone: [facility] Work Phone: 06-09-2021 tetanus toxoid, redu juan c diphtheria toxoid, and acellular pertussis vaccine, adsorbed [facility] 02-18-2021 Covid (Pfizer) [facility] 01-29-2021 Covid (Pfizer) [facility] 09-18-2019 influenza, injectabl e, quadrivalent, contains preservative Shital Patel [facility] 09-18-2019 influenza virus vaccine, unspecified formulation Irena Hood [facility] 08-17-2019 influenza, injectabl e, quadrivalent, preservative free Shital Patel [facility] 07-04-2018 influenza, injectabl e, quadrivalent, preservative free Shital Patel [facility] 07-04-2018 pneumococcal polysaccharide vaccine, 23 valent Shital Patel [facility] 09-07-2013 influenza, injectable,quadrivalent , preservative free, pediatric [facility] 09-07-2013 influenza, seasonal, injectable, preservative free Shital Patel [facility] 11-23-2012 pneumococcal polysaccharide vaccine, 23 valent Shital Patel [facility] 11-23-2012 Pneumococcal Vaccine [facility] Work Phone: 11-23-2012 pneumococcal vaccine , unspecified formulation Dr. Ganesh Garcia Work Phone: [facility] 08-14-2010 influenza, seasonal, injectable Angelika De La Torre [facility] Work Phone: 03-10-2010 influenza, seasonal, injectable; Translations: [Follow Up Appt 2 weeks] Angelika De La Torre [facility] Work Phone: 09-11-2009 novel [id number], preservative-free, injectable Shital Patel [facility] 10-10-2008 pneumococcal polysaccharide vaccine, 23 valent Shital Patel [facility] 08-25-2008 influenza virus vaccine, unspecified formulation Shital Patel [facility] Work Phone: 04-24-2006 tetanus and diphther ia toxoids, adsorbed, preservative free, for adult use (2 Lf of tetanus toxoid and 2 Lf of diphtheria toxoid) Shital Patel [facility] Work Phone: Payers Date Payer Category Payer Unknown [id number] 2024 Self-pay [id number] 2024 Medicare [id number] 2024 Medicaid [id number] 2024 Private Health Insurance [id number] 2022 Medicare (Managed Care) VINH DICEKNS O [id number]. [id number] 2022 Unknown VINH Flanagan AND [employer] VINH AYON O [id number] 2022-Present [phone] [address] [place] [address] [facility] [id number]. [id number] 2022 Unknown [id number]. 1.13.159.2. 7.3.301271.315 2014 Medicaid [id number] Medicare [id number] Unknown [id number] 2.16.840.1.452806.3.579.2. 273 Unknown [id number] 2.16.840.1.929455.3.579.2. 273 Unknown [id number] 2.16.840.1.335022.3.579.2. 273 Unknown [id number] 2.16.840.1.031196.3.579.2. 273 Unknown [id number] 2.16.840.1.116833.3.579.2. 273 Unknown [id number] 2..840.1.448902.3.579.2. 462 Unknown [id number] 2..840.1.982454.3.579.2. 462 Unknown [id number] 2..840.1.089858.3.579.2. 462 Unknown [id number] 2..840.1.262355.3.579.2. 462 Unknown [id number] 2..840.1.531588.3.579.2. 462 Unknown [id number] 2..840.1.069809.3.579.2. 462 Unknown [id number] 2..840.1.477558.3.579.2. 462 Unknown [id number] 2..840.1.495325.3.579.2. 462 Unknown [id number] 2..840.1.040346.3.579.2. 462 Unknown [id number] 2.16.840.1.674336.3.579.2. 462 Unknown [id number] 2.16.840.1.489529.3.579.2. 462 Unknown [id number] 2.16.840.1.444478.3.579.2. 462 Unknown [id number] 2.16.840.1.109618.3.579.2. 462 Unknown [id number] 2.16.840.1.385431.3.579.2. 462 Unknown [id number] 2.16.840.1.294339.3.579.2. 462 Unknown [id number] 2.16.840.1.118416.3.579.2. 462 Unknown [id number] 2.16.840.1.977305.3.579.2. 462 Unknown [id number] 2.16.840.1.344723.3.579.2. 462 Unknown [id number] 2.16.840.1.567267.3.579.2. 462 Unknown [id number] 2.16840.1.266269.3.579.2. 462 Unknown [id number] 2.16840.1.518152.3.579.2. 462 Unknown [id number] 2.16840.1.632486.3.579.2. 462 Unknown [id number] 2.16840.1.070457.3.579.2. 462 Unknown [id number] 2.16840.1.843296.3.579.2. 462 Unknown [id number] 2.16840.1.521350.3.579.2. 462 Unknown [id number] 2.16840.1.897744.3.579.2. 462 Unknown [id number] 2.16840.1.318938.3.579.2. 462 Unknown [id number] 2.16840.1.461945.3.579.2. 462 Unknown [id number] 2.16.840.1.714499.3.579.2. 462 Unknown [id number] 2.16.840.1.255400.3.579.2. 462 Unknown [id number] 2.16840.1.795904.3.579.2. 462 Unknown [id number] 2.16840.1.004078.3.579.2. 462 Unknown [id number] 2.16.840.1.254769.3.579.2. 462 Unknown [id number] 2.16.840.1.009669.3.579.2. 462 Unknown [id number] 2.16.840.1.708795.3.579.2. 462 Unknown [id number] 2.16.840.1.653560.3.579.2. 462 Unknown [id number] 2.16.840.1.480410.3.579.2. 462 Unknown [id number] 2.16840.1.761714.3.579.2. 462 Unknown [id number] 2.16840.1.688972.3.579.2. 462 Unknown [id number] 2.16840.1.632399.3.579.2. 462 Unknown [id number] 2.840.1.646886.3.579.2. 462 Unknown [id number] 2.16840.1.860388.3.579.2. 462 Unknown [id number] 2.840.1.601113.3.579.2. 462 Unknown [id number] 2.16840.1.506244.3.579.2. 462 Unknown [id number] 2.16840.1.066747.3.579.2. 462 Unknown [id number] 2.16840.1.929615.3.579.2. 462 Unknown [id number] 2.16840.1.365835.3.579.2. 462 Unknown [id number] 2.16840.1.865156.3.579.2. 462 Unknown [id number] 2.16840.1.371328.3.579.2. 462 Unknown [id number] 2.16840.1.975768.3.579.2. 462 Unknown [id number] 2.16840.1.380952.3.579.2. 462 Unknown [id number] 2.16.840.1.866746.3.579.2. 462 Unknown [id number] 2.16.840.1.296268.3.579.2. 462 Unknown [id number] 2.16.840.1.752580.3.579.2. 462 Unknown [id number] 2.16840.1.904332.3.579.2. 462 Unknown [id number] 2.16.840.1.303724.3.579.2. 462 Unknown [id number] 2.840.1.670936.3.579.2. 462 Unknown [id number] 2.840.1.183608.3.579.2. 462 Unknown [id number] 2.840.1.591984.3.579.2. 462 Unknown [id number] 2.840.1.018177.3.579.2. 462 Unknown [id number] 2.840.1.246980.3.579.2. 462 Unknown [id number] 2.840.1.235820.3.579.2. 462 Unknown [id number] 2.840.1.890671.3.579.2. 462 Unknown [id number] 2.840.1.058059.3.579.2. 462 Unknown [id number] 2.840.1.447392.3.579.2. 462 Unknown [id number] 2.16840.1.047478.3.579.2. 462 Unknown [id number] 2.16840.1.289228.3.579.2. 462 Unknown [id number] 2.840.1.905669.3.579.2. 462 Unknown [id number] 2.16840.1.851334.3.579.2. 462 Unknown [id number] 2.16.840.1.788016.3.579.2. 462 Unknown [id number] 2.16.840.1.558860.3.579.2. 462 Unknown [id number] 2.16.840.1.617650.3.579.2. 462 Unknown [id number] 2.16.840.1.875804.3.579.2. 462 Unknown [id number] 2.16840.1.354882.3.579.2. 462 Social History Date Type Detail Facility Start: 01-13-2022 End: 01-20-2024 Tobacco smoking status [facility] Unknown if ever smoked [facility] Start: 04-08-2019 Occasional [facility] Start: 12-12-2020 None [facility] Start: 02-28-2021 Homeless [facility] Start: 02-28-2021 Cigarettes [facility] Start: 1965 Sex Assigned At Female [facility] Start: 10-21-2020 End: 03-24-2023 Tobacco smoking status IAIS Ex-smoker [facility] Start: 06-25-1977 End: 10-07-2020 History of tobacco use Current smoker [facility] Start: 06-25-1977 End: 10-07-2020 History of tobacco use Cigarette Smoker [facility] Start: 10-21-2020 End: 11-19-2022 Cigarettes smoked current (pack per day) - Reported 0.5 [facility] Start: 10-21-2020 End: 03-24-2023 Tobacco use and exposure Smokeless tobacco non-user [facility] Start: 10-31-2021 End: 08-10-2023 Alcohol intake Current non-drinker of alcohol (finding) [facility] Start: 05-27-2015 History SDOH Alcohol Comment Seldom- twice yearly [facility] Start: 1965 Sex Assigned At Not on file [facility] Start: 11-19-2022 End: 04-23-2023 Tobacco use panel [facility] National Score (1-10 0), lower number is lower risk 70 [facility] Start: 01-22-2025 End: 01-26-2025 Sex Female (finding) [facility] Medical Equipment Procedure Code Equipment Code Equipment Origin al Text Equipment Identifier Dates TEST STRIPS TEST STRIPS [id number] Start: 08-14-2010 LANCET LANCET [id number] Start: 08-14-2010 INSULIN PEN NEEDLE [id number] Start: 08-14-2010 Comment on above: Test blood [...] Yes. Pt uses Freestyle Lite Insulinx Meter [id number] Start: 12-26-2019 use to test bloo d sugar THREE TIMES DAILY [id number] Start: 12-26-2019 Use one needle f or each dose. four/day. [id number] Start: 09-18-2019 Test blood sugar(s) 3 times daily. Dx: Type 2 DM - Uncontrolled E11.65 Insulin: Yes [id number] Start: 05-07-2016 Goals Date Patient Goal Desired Activity /State Personal health goal Functional Status Date Assessment Result Facility 01-05-2024 Functional status Bedrest [facility] Work Phone: 01-03-2024 Functional status Bedside [facility] Work Phone: 11-24-2023 Functional status Ambulates [facility] Work Phone: 05-21-2022 Functional status Ambulates;Beds giuseppe [facility] Work Phone: 04-25-2022 Functional status Bedpan [facility] Work Phone: 04-25-2022 Functional status None [facility] Work Phone: 03-30-2022 Functional status Ambulates;Laurent r;Bedside [facility] Work Phone: 03-20-2022 Functional status Activity Abili ty Unable to Assess [facility] Work Phone: 05-27-2015 Are you deaf, or do you have serious difficulty hearing No 05/27/2015 2:20 PM EDT Faith Charles RN No [facility] Work Phone: 05-27-2015 Are you blind, or do you have serious difficulty seeing, even when wearing glasses No 05/27/2015 2:20 PM EDFaith Aguillon RN No [facility] 05-27-2015 Do you have serious difficulty walking or climbing stairs No 05/27/2015 2:20 PM EDFaith Aguillon RN No [facility] 05-27-2015 Do you have difficul ty dressing or bathing No 05/27/2015 2:20 PM EDT Faith Charles RN No [facility] 05-27-2015 Because of a physica l, mental, or emotional condition, do you have difficulty doing errands alone such as visiting a physician's office or shopping No 05/27/2015 2:20 PM Faith Vogel RN No [facility] Mental Status Date Assessment Result Facility 01-22-2025 Cognitive function Awake;Alert;A ppropriate;Fol lows Commands [facility] Work Phone: 01-20-2024 Cognitive function Awake;Alert;A ppropriate;Fol lows Commands [facility] Work Phone: 01-05-2024 Cognitive function Voice/Name [facility] Work Phone: 01-03-2024 Cognitive function Voice/Name [facility] Work Phone: 01-01-2024 Cognitive function Voice/Name [facility] Work Phone: 11-24-2023 Cognitive function Voice/Name [facility] Work Phone: 11-19-2023 Cognitive function Level Of Cons ciousness Awake;Alert;Appropriate;Fol lows Commands [facility] Work Phone: 06-06-2023 Cognitive function Level Of Cons ciousness Awake;Alert;Appropriate;Fol lows Commands [facility] Work Phone: 01-29-2023 Cognitive function Awake;Alert;A ppropriate;Fol lows Commands [facility] Work Phone: 11-05-2022 Cognitive function Voice/Name [facility] Work Phone: 08-24-2022 Cognitive function Voice/Name [facility] Work Phone: 05-21-2022 Cognitive function Voice/Name [facility] Work Phone: 05-20-2022 Cognitive function Level Of Cons ciousness Awake;Alert;Appropriate;Fol lows Commands [facility] Work Phone: 05-03-2022 Cognitive function Awake;Alert;A ppropriate;[facility] lows Commands [facility] Work Phone: 04-25-2022 Cognitive function Voice/Name [facility] Work Phone: 03-30-2022 Cognitive function Comprehension Ability Demonstrates ability to follow instructions/comprehend [facility] Work Phone: 03-30-2022 Cognitive function Level Of Cons ciousness Awake;Alert [facility] Work Phone: 03-29-2022 Cognitive function Voice/Name [facility] Work Phone: 03-20-2022 Cognitive function Voice/Name [facility] Work Phone: 02-24-2022 Cognitive function Voice/Name [facility] Work Phone: 01-13-2022 Cognitive function Level Of Cons ciousness Awake;Alert;Appropriate;Fol lows Commands [facility] Work Phone: 05-27-2015 Because of a physica l, mental, or emotional condition, do you have serious difficulty concentrating, remembering, or making decisions No 05/27/2015 2:20 PM EDT Faith Charles RN No [facility] Clinical Notes 07-23-2015 to 03-20-2025 Raisa Epps - 03/20/2025 12:25 PM Elizabeth Jerry [facility] - 02/12/2025 11:26 AM Syeda Rodrigez - 01/05/2025 1:13 PM Ashish Mello MA - 11/29/2024 2:51 PM EST Note Date & Type Note Facility 03-20-2025 Note HNO ID: [id number] Author: ?, ?, ? Service: ? Author Type: ? Type: Progress Notes Filed: 03/20/2025 12:51 Note Text: POPULATION HEALTH NAVIGATION OUTREACH Action/FYI Patient outreach for Hcc gaps; Mammogram, A1C, COLO, RUSSELL, KED, BP. AWV. LVM to schedule. After further review, pt is in a [place] follows with facility doctor. Reason for Outreach Care Gap/HCC or Scheduling Wellness Visits Care Gaps due: Medicare Annual Wellness Visit Breast Cancer Screening Controlling Blood Pressure Colorectal Cancer Screening Diabetic Eye Exam HBA1C KED Patient Contacted: Patient in other facility or Active Cancer Treatment - End Outreach Navigation Signature: Raisa Martínez March 20, 2025 12:25 PM [facility] 03-20-2025 History of Presen t illness Narrative POPULATION HEALTH NAVIGATION OUTREACH Action/FYI Patient outreach for Hcc gaps; Mammogram, A1C, COLO, RUSSELL, KED, BP. AWV. LVM to schedule. After further review, pt is in a [place] follows with facility doctor. Reason for Outreach Care Gap/HCC or Scheduling Wellness Visits Care Gaps due: Medicare Annual Wellness Visit Breast Cancer Screening Controlling Blood Pressure Colorectal Cancer Screening Diabetic Eye Exam HBA1C KED Patient Contacted: Patient in other facility or Active Cancer Treatment - End Outreach Navigation Signature: Raisa Martínez March 20, 2025 12:25 PM documented in this encounter [facility] 03-20-2025 Note Patient Outreach (CHRISTIANO TNFRED) TERRANCE BRAR ([id number]) 1965 F Date Time Provider Department 03/20/25 DWAYNE LOPEZ During your visit today, we recorded the following information about you: Raisa Epps 03/20/2025 12:51 PM Signed POPULATION HEALTH NAVIGATION OUTREACH Action/FYI Patient outreach for Hcc gaps; Mammogram, A1C, COLO, RUSSELL, KED, BP. AWV. LVM to schedule. After further review, pt is in a [place] follows with facility doctor. Reason for Outreach Care Gap/HCC or Scheduling Wellness Visits Care Gaps due: Medicare Annual Wellness Visit Breast Cancer Screening Controlling Blood Pressure Colorectal Cancer Screening Diabetic Eye Exam HBA1C KED Patient Contacted: Patient in other facility or Active Cancer Treatment - End Outreach Navigation Signature: Raisa Martínez March 20, 2025 12:25 PM Allergies As of Date: 03/20/2025 Noted Allergy Reaction CELEBREX (CELECOXIB) 12/26/2019 2 [...] Visit: Population Health Navigation Outreach [3910] Cmt: Nikki Trujillo Prescriptions as of 03/20/2025 - dulaglutide (TRULICITY) 3 mg/0.5 mL pen [...] blood sugar THREE TIMES DAILY - Insulin Black, Disposable, (BD ULTRA-FINE BEN PEN NEEDLE) 32 gauge x 5/32" ndle Use one needle for each dose. four/day. - aspirin 81 mg chewable tablet DAILY@0800 - Lancets lancets Test blood sugar(s) 3 times daily. Dx: Type 2 DM - Uncontrolled E11.65 Insulin: Yes Problem List As Of Date 03/20/2025 Noted Resolved Depressive disorder, not elsewhere classified [*10/05/2008 02/27/2016 Diabetes mellitus type 2, uncontrolled, without*10/05/2008 02/27/2016 CALCULUS OF KIDNEY [N20.0] 10/05/2008 Tobacco Use Disorder [F17.200] 10/10/2008 Hyperparathyroidism (HCC) [E21.3] 10/24/2008 Disturbance in sleep behavior [G47.9] 12/07/2008 NONTOX UNINODULAR GOITER [E04.1] 12/07/2008 Routine General Medical Examination at [facility]*12/10/2008 06/03/2015 Benign neoplasm of colon [D12.6] 05/15/2014 Abdominal pain, epigastric [R10.13] 05/15/2014 06/03/2015 Gastric ulcer [K25.9] 05/15/2014 Abdominal pain, right upper quadrant [R10.11] 06/05/2014 06/03/2015 Lumbar degenerative disc disease [M51.369] 03/12/2015 Constipation [K59.00] 03/12/2015 06/03/2015 Anemia [D64.9] [...] 06/21/2017 Trigger finger, right little finger [M65.351] 0 (more content not included)... [facility] 02-12-2025 History of Presen t illness Narrative Primary Care Pharmacy Panel Management This patient has been identified through Specialty Integration/Value-Based Operations Diabetes Registry Review by the primary care pharmacy team. After review, determined that the patient is not a candidate for pharmacy referral at this time due to questionable attribution. Elizabeth Jennings RPh documented in this encounter [facility] 02-12-2025 Note HNO ID: [id number] Author: ELIZABETH JENNINGS RPh Service: ? Author Type: Pharmacist Type: Progress Notes Filed: 02/12/2025 11:27 Note Text: Primary Care Pharmacy Panel Management This patient has been identified through Specialty Integration/Value-Based Operations Diabetes Registry Review by the primary care pharmacy team. After review, determined that the patient is not a candidate for pharmacy referral at this time due to questionable attribution. Elizabeth Jennings RPh [facility] 02-12-2025 Note Patient Outreach ( MEWO) TERRANCE BRAR ([id number]) 1965 F Date Time Provider Department 02/12/25 ELIZABETH JENNINGS MEWO During your visit today, we recorded the following information about you: Elizabeth Jennings RPh 02/12/2025 11:27 AM Signed Primary Care Pharmacy Panel Management This patient has been identified through Specialty Integration/Value-Based Operations Diabetes Registry Review by the primary care pharmacy team. After review, determined that the patient is not a candidate for pharmacy referral at this time due to questionable attribution. Elizabeth Jennings RPh Allergies As of Date: 02/12/2025 Noted Allergy Reaction CELEBREX (CELECOXIB) 12/26/2019 2 [...] by: Edda Larios LPN - Fully Assessed Prescriptions as of 02/12/2025 - dulaglutide (TRULICITY) 3 mg/0.5 mL pen [...] blood sugar THREE TIMES DAILY - Insulin Black, Disposable, (BD ULTRA-FINE BEN PEN NEEDLE) 32 gauge x 5/32" ndle Use one needle for each dose. four/day. - aspirin 81 mg chewable tablet DAILY@0800 - Lancets lancets Test blood sugar(s) 3 times daily. Dx: Type 2 DM - Uncontrolled E11.65 Insulin: Yes Problem List As Of Date 02/12/2025 Noted Resolved Depressive disorder, not elsewhere classified [*10/05/2008 02/27/2016 Diabetes mellitus type 2, uncontrolled, without*10/05/2008 02/27/2016 CALCULUS OF KIDNEY [N20.0] 10/05/2008 Tobacco Use Disorder [F17.200] 10/10/2008 Hyperparathyroidism (HCC) [E21.3] 10/24/2008 Disturbance in sleep behavior [G47.9] 12/07/2008 NONTOX UNINODULAR GOITER [E04.1] 12/07/2008 Routine General Medical Examination at a [facility]*12/10/2008 06/03/2015 Benign neoplasm of colon [D12.6] 05/15/2014 Abdominal pain, epigastric [R10.13] 05/15/2014 06/03/2015 Gastric ulcer [K25.9] 05/15/2014 Abdominal pain, right upper quadrant [R10.11] 06/05/2014 06/03/2015 Lumbar degenerative disc disease [M51.369] 03/12/2015 Constipation [K59.00] 03/12/2015 06/03/2015 Anemia [D64.9] [...] 09/18/2019 Eczema [L30.9] 12/26/2019 Breast mass, left [N6 (more content not included)... [facility] 02-06-2025 Note Patient Outreach (FA MPWS) TERRANCE BRAR ([id number]) 1965 F Date Time Provider Department 02/06/25 DWAYNE LOPEZ During your visit today, we recorded the following information about you: Allergies As of Date: 02/06/2025 Noted Allergy Reaction CELEBREX (CELECOXIB) 12/26/2019 2 [...] for screening mammogram for breast cancer [Z12.31] Order(s):[facility] SCREENING W MIKE [[id number]] Order #: [id number] FUTURE Prescriptions as of 03/09/2025 - dulaglutide (TRULICITY) 3 mg/0.5 mL pen [...] blood sugar THREE TIMES DAILY - Insulin Black, Disposable, (BD ULTRA-FINE BEN PEN NEEDLE) 32 gauge x 5/32" ndle Use one needle for each dose. four/day. - aspirin 81 mg chewable tablet DAILY@0800 - Lancets lancets Test blood sugar(s) 3 times daily. Dx: Type 2 DM - Uncontrolled E11.65 Insulin: Yes Problem List As Of Date 02/06/2025 Noted Resolved Depressive disorder, not elsewhere classified [*10/05/2008 02/27/2016 Diabetes mellitus type 2, uncontrolled, without*10/05/2008 02/27/2016 CALCULUS OF KIDNEY [N20.0] 10/05/2008 Tobacco Use Disorder [F17.200] 10/10/2008 Hyperparathyroidism (HCC) [E21.3] 10/24/2008 Disturbance in sleep behavior [G47.9] 12/07/2008 NONTOX UNINODULAR GOITER [E04.1] 12/07/2008 Routine General Medical Examination at [facility]*12/10/2008 06/03/2015 Benign neoplasm of colon [D12.6] 05/15/2014 Abdominal pain, epigastric [R10.13] 05/15/2014 06/03/2015 Gastric ulcer [K25.9] 05/15/2014 Abdominal pain, right upper quadrant [R10.11] 06/05/2014 06/03/2015 Lumbar degenerative disc disease [M51.369] 03/12/2015 Constipation [K59.00] 03/12/2015 06/03/2015 Anemia [D64.9] [...] disease (HCC) [N18.31] 04/12/2023 Opioid dependence, continuous (HCC (more content not included)... [facility] 01-22-2025 Radiology Diagnostic study note [facility] 01-05-2025 Note HNO ID: [id number] Author: ?, ?, ? Service: ? Author Type: ? Type: Progress Notes Filed: 01/05/2025 13:14 Note Text: Patient is identified through a medication adherence outreach initiative based on pharmacy claims data from: [employer] Medication Adherence Category: [employer] Review Attribution Status: Correctly Attributed but Patient in SNF [facility] Value Based Care Pharmacy Team [facility] 01-05-2025 History of Presen t illness Narrative Patient is identified through a medication adherence outreach initiative based on pharmacy claims data from: [employer] Medication Adherence Category: [employer] Review Attribution Status: Correctly Attributed but Patient in SNF [facility] Based Care Pharmacy Team documented in this encounter [facility] 01-05-2025 Note Patient Outreach ( YVONNE) TERRANCE BRAR ([id number]) 1965 F Date Time Provider Department 01/05/25 DWAYNE LOPEZ During your visit today, we recorded the following information about you: Syeda Markham 01/05/2025 1:14 PM Signed Patient is identified through a medication adherence outreach initiative based on pharmacy claims data from: [employer] Medication Adherence Category: [employer] Review Attribution Status: Correctly Attributed but Patient in SNF [facility] Value Based Care Pharmacy Team Allergies As of Date: 01/05/2025 Noted Allergy Reaction CELEBREX (CELECOXIB) 12/26/2019 2 [...] Cmt: Medication Adherence Outreach Prescriptions as of 01/05/2025 - dulaglutide (TRULICITY) 3 mg/0.5 mL pen [...] blood sugar THREE TIMES DAILY - Insulin Black, Disposable, (BD ULTRA-FINE BEN PEN NEEDLE) 32 gauge x 5/32" ndle Use one needle for each dose. four/day. - aspirin 81 mg chewable tablet DAILY@0800 - Lancets lancets Test blood sugar(s) 3 times daily. Dx: Type 2 DM - Uncontrolled E11.65 Insulin: Yes Problem List As Of Date 01/05/2025 Noted Resolved Depressive disorder, not elsewhere classified [*10/05/2008 02/27/2016 Diabetes mellitus type 2, uncontrolled, without*10/05/2008 02/27/2016 CALCULUS OF KIDNEY [N20.0] 10/05/2008 Tobacco Use Disorder [F17.200] 10/10/2008 Hyperparathyroidism (HCC) [E21.3] 10/24/2008 Disturbance in sleep behavior [G47.9] 12/07/2008 NONTOX UNINODULAR GOITER [E04.1] 12/07/2008 Routine General Medical Examination at [facility]*12/10/2008 06/03/2015 Benign neoplasm of colon [D12.6] 05/15/2014 Abdominal pain, epigastric [R10.13] 05/15/2014 06/03/2015 Gastric ulcer [K25.9] 05/15/2014 Abdominal pain, right upper quadrant [R10.11] 06/05/2014 06/03/2015 Lumbar degenerative disc disease [M51.369] 03/12/2015 Constipation [K59.00] 03/12/2015 06/03/2015 Anemia [D64.9] [...] radiculopathy [M54.16] 09/18/2019 Hyponatremia [E87.1] 09/18/2019 Eczema (more content not included)... [facility] 11-29-2024 Note HNO ID: [id number] Author: ASHISH BRAY MA Service: ? Author Type: Law Enforcement Director Type: Progress Notes Filed: 11/29/2024 14:54 Note Text: POPULATION HEALTH NAVIGATION OUTREACH Action/I msg to schedule wellness, hcc gap closure, follow up, ked/ uacr , and bmp and hgba1c not pended and I didn't speak to the patient, colonoscopy, diabetic retinal eye exam, influenza, mammogram Reason for Outreach Care Gap/HCC or Scheduling Wellness Visits Care Gaps due: Medicare Annual Wellness Visit Follow-up Appointment Breast Cancer Screening Colorectal Cancer Screening Diabetic Eye Exam HBA1C KED Flu Vaccine Patient Contacted: Unable or unnecessary to reach patient: Left message HCC related Navigation Signature: Ashish Bray MA November 29, 2024 2:51 PM [facility] 11-29-2024 History of Presen t illness Narrative POPULATION HEALTH NAVIGATION OUTREACH Action/FYI msg to schedule wellness, hcc gap closure, follow up, ked/ uacr , and bmp and hgba1c not pended and I didn't speak to the patient, colonoscopy, diabetic retinal eye exam, influenza, mammogram Reason for Outreach Care Gap/HCC or Scheduling Wellness Visits Care Gaps due: Medicare Annual Wellness Visit Follow-up Appointment Breast Cancer Screening Colorectal Cancer Screening Diabetic Eye Exam HBA1C KED Flu Vaccine Patient Contacted: Unable or unnecessary to reach patient: Left message HCC related Navigation Signature: Ashish Bray MA November 29, 2024 2:51 PM documented in this encounter [facility] 11-29-2024 Note Patient Outreach (CHRISTIANO HERRERA) TERRANCE BRAR ([id number]) 1965 F Date Time Provider Department 11/29/24 ASHISH BRAY During your visit today, we recorded the following information about you: Ashish Bray MA 11/29/2024 2:54 PM Signed POPULATION HEALTH NAVIGATION OUTREACH Action/FYI msg to schedule wellness, hcc gap closure, follow up, ked/ uacr , and bmp and hgba1c not pended and I didn't speak to the patient, colonoscopy, diabetic retinal eye exam, influenza, mammogram Reason for Outreach Care Gap/HCC or Scheduling Wellness Visits Care Gaps due: Medicare Annual Wellness Visit Follow-up Appointment Breast Cancer Screening Colorectal Cancer Screening Diabetic Eye Exam HBA1C KED Flu Vaccine Patient Contacted: Unable or unnecessary to reach patient: Left message HCC related Navigation Signature: Ashish Bray MA November 29, 2024 2:51 PM Allergies As of Date: 11/29/2024 Noted Allergy Reaction CELEBREX (CELECOXIB) 12/26/2019 2 [...] Visit: Population Health Navigation Outreach [3910] Cmt: Nikki limnajessica trujillo Prescriptions as of 11/29/2024 - dulaglutide (TRULICITY) 3 mg/0.5 mL pen [...] blood sugar THREE TIMES DAILY - Insulin Black, Disposable, (BD ULTRA-FINE BEN PEN NEEDLE) 32 gauge x 5/32" ndle Use one needle for each dose. four/day. - aspirin 81 mg chewable tablet DAILY@0800 - Lancets lancets Test blood sugar(s) 3 times daily. Dx: Type 2 DM - Uncontrolled E11.65 Insulin: Yes Problem List As Of Date 11/29/2024 Noted Resolved Depressive disorder, not elsewhere classified [*10/05/2008 02/27/2016 Diabetes mellitus type 2, uncontrolled, without*10/05/2008 02/27/2016 CALCULUS OF KIDNEY [N20.0] 10/05/2008 Tobacco Use Disorder [F17.200] 10/10/2008 Hyperparathyroidism (HCC) [E21.3] 10/24/2008 Disturbance in sleep behavior [G47.9] 12/07/2008 NONTOX UNINODULAR GOITER [E04.1] 12/07/2008 Routine General Medical Examination at [facility]*12/10/2008 06/03/2015 Benign neoplasm of colon [D12.6] 05/15/2014 Abdominal pain, epigastric [R10.13] 05/15/2014 06/03/2015 Gastric ulcer [K25.9] 05/15/2014 Abdominal pain, right upper quadrant [R10.11] 06/05/2014 06/03/2015 Lumbar degenerative disc disease [M51.369] 03/12/2015 Constipation [K59.00] 03/12/2015 06/03/2015 Anemia [D64.9] [...] of right hand [M65.331] 06/21/2017 Trigger finger, (more content not included)... [facility] 09-08-2024 Note HNO ID: [id number] Author: IRENA WILD, ? Service: ? Author Type: Patient Caster [employer] Type: Progress Notes Filed: 09/08/2024 10:26 Note Text: POPULATION HEALTH NAVIGATION OUTREACH Action/FYI [place] No PCP Pt is established with Dr. Lopez; PCP updated Reason for Outreach Care Gap/HCC or Scheduling Wellness Visits Care Gaps due: N/A Patient Contacted: Unable or unnecessary to reach patient: PCP field updated Navigation Signature: Irena Wild September 08, 2024 10:25 AM [facility] 09-08-2024 History of Presen t illness Narrative POPULATION HEALTH NAVIGATION OUTREACH Action/I Vinh No PCP Pt is established with Dr. Lopez; PCP updated Reason for Outreach Care Gap/HCC or Scheduling Wellness Visits Care Gaps due: N/A Patient Contacted: Unable or unnecessary to reach patient: PCP field updated Navigation Signature: Irena Wild September 08, 2024 10:25 AM documented in this encounter [facility] 09-08-2024 Note Patient Outreach (NE TNAV) TERRANCE BRAR ([id number]) 1965 F Date Time Provider Department 09/08/24 IRENA WILD NETNAV During your visit today, we recorded the following information about you: Irena Wild 09/08/2024 10:26 AM Addendum POPULATION HEALTH NAVIGATION OUTREACH Action/I Vinh No PCP Pt is established with Dr. Lopez; PCP updated Reason for Outreach Care Gap/HCC or Scheduling Wellness Visits Care Gaps due: N/A Patient Contacted: Unable or unnecessary to reach patient: PCP field updated Navigation Signature: Irena Wild September 08, 2024 10:25 AM Allergies As of Date: 09/08/2024 Noted Allergy Reaction CELEBREX (CELECOXIB) 12/26/2019 2 [...] Population Health Navigation Outreach [3910] Cmt: Vinh No PCP Prescriptions as of 09/08/2024 - dulaglutide (TRULICITY) 3 mg/0.5 mL pen [...] blood sugar THREE TIMES DAILY - Insulin Black, Disposable, (BD ULTRA-FINE BEN PEN NEEDLE) 32 gauge x 5/32" ndle Use one needle for each dose. four/day. - aspirin 81 mg chewable tablet DAILY@0800 - Lancets lancets Test blood sugar(s) 3 times daily. Dx: Type 2 DM - Uncontrolled E11.65 Insulin: Yes Problem List As Of Date 09/08/2024 Noted Resolved Depressive disorder, not elsewhere classified [*10/05/2008 02/27/2016 Diabetes mellitus type 2, uncontrolled, without*10/05/2008 02/27/2016 CALCULUS OF KIDNEY [N20.0] 10/05/2008 Tobacco Use Disorder [F17.200] 10/10/2008 Hyperparathyroidism (HCC) [E21.3] 10/24/2008 Disturbance in sleep behavior [G47.9] 12/07/2008 NONTOX UNINODULAR GOITER [E04.1] 12/07/2008 Routine General Medical Examination at [facility]*12/10/2008 06/03/2015 Benign neoplasm of colon [D12.6] 05/15/2014 Abdominal pain, epigastric [R10.13] 05/15/2014 06/03/2015 Gastric ulcer [K25.9] 05/15/2014 Abdominal pain, right upper quadrant [R10.11] 06/05/2014 06/03/2015 Lumbar degenerative disc disease [M51.369] 03/12/2015 Constipation [K59.00] 03/12/2015 06/03/2015 Anemia [D64.9] [...] Incisional hernia, without obstruction or gangr*09/04/2019 Lumbar radiculop (more content not included)... [facility] 04-06-2024 Note HNO ID: [id number] Author: JEFFREY PEACOCK RN Service: ? Author [...] the ED visit. Pt currently resides @ [facility] and follows a provider @ the facility Placed pt on attrib list for [place] Patient seen in ED: Out of Network ED Contact made with Patient: Yes The patient was identified by Name and Date of . Discussed Care with: patient Patient was seen in the Emergency Department (ED) Location: [place] Date: 04/02/24 Reason for ED Visit: CP and blood sugar 44 ED Intervention: cardiac enzymes,EKG per pt Currently experiencing nausea and vomiting but RECEPTIONIST AIRLINE LOUNGE in to see pt today regarding current symptoms Based on medical interpreter, the following disposition is advised: No symptoms or symptoms present, not severe. Routed to: No Action Needed JUAN Education Provided this Outreach: No Jeffrey Peacock RN April 06, 2024 11:01 AM [facility] 04-06-2024 History of Presen t illness Narrative ED Follow-Up Note Provider Action [...] the ED visit. Pt currently resides @ [facility] and follows a provider @ the facility Placed pt on attrib list for Vinh Patient seen in ED: Out of Network ED Contact made with Patient: Yes The patient was identified by Name and Date of . Discussed Care with: patient Patient was seen in the Emergency Department (ED) Location: [place] Date: 04/02/24 Reason for ED Visit: CP and blood sugar 44 ED Intervention: cardiac enzymes,EKG per pt Currently experiencing nausea and vomiting but RECEPTIONIST [employer]LINE LOUNGE in to see pt today regarding current symptoms Based on medical interpreter, the following disposition is advised: No symptoms or symptoms present, not severe. Routed to: No Action Needed JUAN Education Provided this Outreach: No Jeffrey Peacock RN April 06, 2024 11:01 AM documented in this encounter [facility] 04-06-2024 Note Patient Outreach (AM BC) TERRANCE BRAR ([id number]) 1965 F Date Time Provider Department 04/06/24 [...] the ED visit. Pt currently resides @ [facility] and follows a provider @ the facility Placed pt on attrib list for Vinh Patient seen in ED: Out of Network ED Contact made with Patient: Yes The patient was identified by Name and Date of . Discussed Care with: patient Patient was seen in the Emergency Department (ED) Location: [place] Date: 04/02/24 Reason for ED Visit: CP and blood sugar 44 ED Intervention: cardiac enzymes,EKG per pt Currently experiencing nausea and vomiting but RECEPTIONIST [employer] LOUNGE in to see pt today regarding current symptoms Based on medical interpreter, the following disposition is advised: No symptoms or symptoms present, not severe. Routed to: No Action Needed JUAN Education Provided this Outreach: Jania Peacock RN April 06, 2024 11:01 AM [...] Assessed Reason for Visit: ACM TIARA RN [[id number]] Prescriptions as of 04/06/2024 - dulaglutide (TRULICITY) [...] blood sugar THREE TIMES DAILY - Insulin Black, Disposable, (BD ULTRA-FINE BEN PEN NEEDLE) 32 gauge x 5/32" ndle Use one needle for each dose. [...] [E04.1] 12/07/2008 Routine General Medical Examination at [facility]*12/10/2008 06/03/2015 Benign neoplasm of colon [D12.6] 05/15/2014 Abdominal pain, epigastric [R10.13] 05/15/2014 06/03/2015 Gastric ulcer [K25.9] 05/15/2014 Abdominal pain, right upper quadrant [R10.11] 06/05/2014 06/03/2015 Lumbar degenerative disc disease [M51.36] 03/12/2015 Constipation [K59.00] 03/12/2015 06/03/2015 Anemia [D64.9] 03/12/2015 02/27/2016 Hypothyroidism [E03.9] 03/12/2015 Hyperlipidemia associated with type 2 diabetes *03/12/2015 Carpal tunnel syndrome, left [G56.02 (more content not included)... [facility] 03-28-2024 Note HNO ID: [id number] Author: JEFFREY PEACOCK RN Service: ? Author [...] Out of Network ED ER vs to park on 03/24/24 Contact made with Patient: No, left message. Jeffrey Peacock RN March 28, 2024 2:20 PM [facility] 03-28-2024 History of Presen t illness Narrative ED Follow-Up Note Provider Action / FYI: 2nd er outreach call to pt but unable to reach Outreach was attempted with this patient via telephone regarding the patient's recent [facility] ED visit. Patient did not answer at time of call. A voicemail message was left. Will re-attempt call. Patient seen in ED: Out of Network ED ER vs to park on 03/24/24 Contact made with Patient: No, left message. Jeffrey Peacock RN March 28, 2024 2:20 PM ED Follow-Up Note Provider Action / FYI: Outreach was attempted with this patient via telephone regarding the patient's recent [facility] ED visit. Patient did not answer at time of call. A voicemail message was left. Will re-attempt call. Patient seen in ED: Out of [facility] ED ER vs to r[place]nie on 03/24/24 Contact made with Patient: No, left message. Jeffrey Peacock RN March 28, 2024 11:51 AM documented in this encounter [facility] 03-28-2024 Note HNO ID: [id number] Author: JEFFREY PEACOCK RN Service: ? Author Type: Registered Nurse Type: Progress Notes Filed: 03/28/2024 14:20 Note Text: ED Follow-Up Note Provider Action / FYI: Outreach was attempted with this patient via telephone regarding the patient's recent [facility] ED visit. Patient did not answer at time of call. A voicemail message was left. Will re-attempt call. Patient seen in ED: Out of [facility] ED ER vs to [place]nie on 03/24/24 Contact made with Patient: No, left message. Jeffrey Peacock RN March 28, 2024 11:51 AM [facility] 03-28-2024 Note Patient Outreach [place] TERRANCE BRAR ([id number]) 1965 F Date Time Provider Department 03/28/24 JEFFREY PEACOCK AMBG During your visit today, we recorded the following information about you: Jeffrey Peacock RN 03/28/2024 2:20 PM Signed ED Follow-Up Note Provider Action / FYI: Outreach was attempted with this patient via telephone regarding the patient's recent [facility] ED visit. Patient did not answer at time of call. A voicemail message was left. Will re-attempt call. Patient seen in ED: Out of [facility] ED ER vs to ronnie on 03/24/24 [...] blood sugar THREE TIMES DAILY - Insulin Black, Disposable, (BD ULTRA-FINE BEN PEN NEEDLE) 32 gauge x 5/32" ndle Use one needle for each dose. [...] [E04.1] 12/07/2008 Routine General Medical Examination at [facility]*12/10/2008 06/03/2015 Benign neoplasm of colon [D12.6] [...] Quervain's tenosynovitis [M65.4] (more content not included)... [facility] 03-22-2024 Telephone encount er Note Patient scheduled for 04/18/2024 at 1220 with Jesica Podlogzachary. Shonda Valladares LPN [facility] 03-22-2024 Miscellaneous Notes Formattin g of this note might be different from the original. Patient scheduled for 04/18/2024 at 1220 with Jesica Podlogzachary. Shonda Valladares LPN Patient overdue for OV. [...] 2024 5:24 PM documented in this encounter [facility] 03-21-2024 Telephone encount er Note Patient overdue for OV. Please call to schedule appointment in the next 1 month. . [facility] 03-21-2024 Telephone encount er Note Patient reviewed for Population Health Medication Adherence Pended the following prescription(s) for review. Requested Prescriptions Pending Prescriptions Disp Refills atorvastatin (LIPITOR) 40 mg tablet 90 tablet 3 Sig: Take 1 tablet by mouth once daily. No future appointments. Please review and refill if appropriate. Thank you. 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 Patient is [...] dispense Ariadna Kyle documented in this encounter [facility] 01-24-2024 Miscellaneous Notes Formattin g of this note might be different from the original. Phoned patient to schedule ER follow up visit. Patient reported she is not able to come in this week due their car is being repaired. Agreed to 02/01/24 at 2pm for 40 min visit. documented in this encounter [facility] 01-20-2024 Discharge summary Note Date/Time January 20, 2024 1:22am [facility] Medical Records Department [address] [place] [address] Emergency Department Summary 01/20/24 MR#: [id number] Acct: [id number] Name: TERRANCE BRAR Rep #:[id number] : 1965 58 From: Ellis Peterson MD PCP: Dr. Jarred Lopez MD Status :REG ER Location: ED HPI History of Present Illness Chief Complaint: Chest Pain Narrative Narrative: 58-year-old female presents from [facility] with sharp, stabbing chest pain that awoke her from sleep. She states it radiates to her neck. She states that she has history of "blood clots around my heart" but is unsure if she is on a blood thinner. She has been at the facility for the last 2 months for rehabilitation. She has past medical history of coronary artery disease, chronic kidney disease, diabetes, hypertension, and hyperlipidemia. She denies any exacerbating or alleviating factors to her sharp, stabbing chest pain. EMS has administered aspirin and nitroglycerin. She presents because of chest pain that awoke her from sleep. [facility] Medical History Anxiety and depression Carpal tunnel syndrome Chronic back pain CKD (chronic kidney disease) stage 3, GFR 30-59 ml/min Diabetes mellitus, type 2 Essential hypertension Former smoker History of left heart catheterization (LHC) (~05/21/22) HTN (hypertension) Hyperlipidemia Hypothyroidism Intervertebral disc disorder with radiculopathy of lumbar region Kidney stones Migraines Normochromic normocytic anemia Obesity (BMI 35.0-39.9 without comorbidity) Opiate abuse, continuous Orthostatic hypotension Parathyroid disease Pulmonary emboli Stomach ulcer Thyroid disease Home Medications rizatriptan 10 mg tablet 10 mg PO PRN Migraine Symptoms 12/27/17 [History Last Taken 01/01/24] atorvastatin 40 mg tablet 40 mg PO QHS #30 tabs 05/21/22 [Rx Last Taken 12/31/23] metoprolol succinate 25 mg tablet,extended release 24 hr 25 mg PO DAILY #30 tabs05/21/22 [Rx Last Taken 01/01/24] levothyroxine 175 mcg capsule 175 mcg PO DAILY 06/12/22 [History Last Taken 01/01/24] pantoprazole 40 mg tablet,delayed release 40 mg PO DAILY 06/12/22 [History Last Taken 01/01/24] ranolazine 500 mg tablet,extended release,12 hr 500 mg PO BID #60 tabs 06/12/22 [Rx Last Taken 01/01/24] midodrine 10 mg tablet 10 mg PO BID 09/09/22 [History Last Taken 01/01/24] fenofibrate 50 mg capsule 50 mg PO QHS 01/29/23 [History Last Taken 12/31/23] lorazepam 0.5 mg tablet 0.5 mg PO Q12H anxeity 01/29/23 [History Last Taken 12/31/23] quetiapine 25 mg tablet 37.5 mg PO QHS 01/29/23 [History Last Taken 11/15/23] acetaminophen 325 mg tablet 650 mg (2 x 325 mg) PO Q6H PRN PRN Pain 1-10 Or Fever >100.7 #0 tabs 11/24/23 [Rx Last Taken Unknown] melatonin 3 mg tablet 3 mg PO QHS PRN PRN Insomnia #0 tabs 11/24/23 [Rx Last Taken 12/31/23] potassium chloride 20 mEq tablet,extended release(part/cryst) 20 meq PO 1XD #0 tabs 11/24/23 [Rx Last Taken 01/01/24] apixaban 5 mg tablet 5 mg PO BID #10 tabs 01/05/24 [Rx Last Taken Unknown] apixaban 5 mg tablet (Eliquis) 10 mg (2 x 5 mg) PO BID #0 tabs 01/05/24 [Rx Last Taken Unknown] insulin glargine-yfgn 100 unit/mL (3 mL) subcutaneous pen 35 unit (0.35 mL) subcut BREAKFAST #0 mL 01/05/24 [Rx Last Taken Unknown] insulin glargine-yfgn 100 unit/mL (3 mL) subcutaneous pen 35 unit (0.35 mL) subcut QHS #0 mL 01/05/24 [Rx Last Taken Unknown] insulin lispro 100 unit/mL subcutaneous pen (Humalog KwikPen (U-100) Insulin) 20unit (0.2 mL) subcut TIDAC #0 mL 01/05/24 [Rx Last Taken Unknown] oxycodone 5 mg tablet 5 mg PO Q4H PRN PRN Pain Score 4-10 1 day #6 tabs 01/05/24[Rx Last Taken Unknown] sennosides 8.6 mg-docusate sodium 50 mg tablet (Stool Softener-Stimulant Laxative) 2 tab PO BID PRN PRN Constipation #0 tabs 01/05/24 [Rx Last Taken Unknown] Allergy/AdvReac Type Severity Reaction Status Date / Time celecoxib [From Celebrex] Allergy Itching Verified 06/10/23 14:56 ciprofloxacin [From Cipro] Allergy Swelling Verified 06/10/23 14:56 ciprofloxacin HCl Allergy Swelling Verified 06/10/23 14:56 [From Cipro] codeine Allergy Hives Verified 06/10/23 14:56 ibuprofen Allergy Hives Verified 06/10/23 14:56 naproxen Allergy Hives Verified 06/10/23 14:56 Penicillins Allergy Hives Verified 06/10/23 14:56 tramadol HCl [From Ultram] Allergy Hives Verified 06/10/23 14:56 ketorolac [From Toradol] AdvReac Swelling Verified 06/10/23 14:56 Family History Mother Cancer CVA (cerebral vascular accident) Hypertension Heart disease Myocardial infarction Diabetes Father Asthma Surgical History H/O: hysterectomy History of cholecystectomy Hx of section S/P trigger finger release Social History household members: other details: currently living in a NH for therapy for chronic back pain housing: [facility] Smoking Status: Former smoker Tobacco: How many years used: 46 how long ago did patient quit smoking: Quit 09/2021, smoked 1 ppd since teen until quit. alcohol intake: never substance use type: other details: History of chronic opiate use. Denies abuse. ROS ROS ED ROS Narrative Constitutional: No fever, no chills. HEENT: No sore throat. Radiating pain from chest to neck pain. No loss of vision. No rhinorrhea. Cardiovascular: Midsternal to left-sided chest pain. No palpitations. No pedaledema. Respiratory: No cough, no shortness of breath. Abdominal: No abdominal pain. No nausea. No vomiting. Genitourinary: No dysuria. No hematuria. Musculoskeletal: No myalgias. No arthralgias. Neurologic: No headaches. No dizziness. No lightheadedness. Skin: No rash. No change in color. Psychiatric: No depression. No anxiety. EXAM Physical Exam Narrative Exam Narrative: Afebrile. Vital signs noted. HEENT: Normocephalic. Atraumatic. PERRL, EOMI. Neck soft and supple. No pointtenderness or step off. Cardiovascular: Regular rate and rhythm. No murmurs, rubs, or gallops appreciated. Respiratory: No tachypnea. Lungs clear to auscultation bilaterally. Gastrointestinal: Abdomen soft, nontender, with normoactive bowel sounds. No rebound or guarding. Neurological: Awake. Alert. Nonfocal, nonlateralizing. Skin: No rash. Normal color. No pallor. Musculoskeletal: No pedal edema. Full range of motion extremities. Psychiatric: Mild anxiety. Const Vital Signs: 01/20/24 01:04 01/20/24 01:09 01/20/24 02:01 Temperature 98.6 F Temperature Source Temporal Pulse Rate 87 78 Respiratory Rate 12 12 Respiratory Effort Normal Blood Pressure 140/61 H 127/64 H Blood Pressure Mean 87 85 Pulse Ox 97 95 Oxygen Delivery Method Room Air Room Air 01/20/24 03:00 01/20/24 03:00 01/20/24 04:00 Temperature Temperature Source Pulse Rate 76 75 Respiratory Rate 17 14 Respiratory Effort Blood Pressure 130/61 H 130/59 H Blood Pressure Mean 84 80 Pulse Ox 98 98 95 Oxygen Delivery Method Room Air Room Air Room Air Heart Score History: Slightly/Non-Suspicious ECG: Normal Age: >45 - <65 years Risk Factors: >/= 3 Risk Factors or History of CAD Score: 3 MDM MDM MDM Narrative Medical decision making narrative: In the differential diagnosis is pneumonia versus pneumothorax versus ACS versuspulmonary embolism. I reviewed her medication list with the RN and she is already on Eliquis. I do not feel she needs a D-dimer scan because she states that they bring her her medication daily and she has been there for 2 months. EKG was obtained and interpreted by myself independently as normal sinus rhythm at 85 bpm without ectopy or acute ST changes. No STEMI. History and physical does not support pneumothorax or pneumonia. In review of her previous problem list she has had chest pain in the past. I do feel that she would be able to beruled out with biomarkers. I reviewed her laboratory work and she has normal white count of 8.4, hemoglobinstable at 11.3, hematocrit 35.6 with platelet count normal at 379. Her electrolyte panel is grossly unremarkable with a normal sodium of 139 potassium 4.3. Glucose appropriately elevated at 83. Chest x-ray in 1 view interpreted by myself independently shows no evidence of an acute process, no pneumonia, no pneumothorax. I do not feel antibiotics are indicated. Her initial high-sensitivity troponin is 18, and review of her prior labs, this appears to be herbaseline. Patient requested something for pain and nausea, I reviewed her [facility] paperwork and she has history of chronic pain. She was given 1 oxycodone tablet here and Zofran ODT. As long as her second troponin does not show a large delta troponin, I do feel that she would be able to be discharged back to the half-way facility. As her second troponin is 21 and she has a negative delta troponin, I feel she can be discharged to follow-up. Disposition is discharged to the half-way facility in stable condition. History & Record Review Discussion w/independent historian: Patient Additional record(s) reviewed:: Prior labs Lab Data Attestation: I reviewed the patient's lab results. Labs: Laboratory Results - last 24 hr 01/20/24 01/20/24 00:46 03:30 WBC 8.4 RBC 3.86 L Hgb 11.3 L Hct 35.6 L MCV 92.2 MCH 29.3 MCHC 31.7 L RDW Std Deviation 47.4 H RDW Coeff of Anisa 14.0 Plt Count 379 MPV 9.0 Immature Gran % (Auto) 0.400 Neut % (Auto) 58.1 Lymph % (Auto) 34.1 [place] % (Auto) 5.5 Eos % (Auto) 1.4 Baso % (Auto) 0.5 Absolute Neuts (auto) 4.9 Absolute Lymphs (auto) 2.86 Nucleated RBC % 0 Sodium 139 Potassium 4.3 Chloride 106 Carbon Dioxide 28.0 Anion Gap 5 BUN 13 Creatinine 0.93 Estim Creat Clear Calc 62.41 Est GFR (MDRD) Af Amer 79 Est GFR (MDRD) Non-Af 66 BUN/Creatinine Ratio 14.0 Glucose 83 Calcium 9.2 Troponin I High Sens 18 21 Radiography Diagnostic Testing: Clinical Impression(s) from Imaging Studies Chest X-Ray 01/20/24 01:18 IMPRESSION: No radiographic evidence of acute cardiopulmonary disease. Electronically Signed: Edward Rush MD at 2:09 EDT Reading Location ID and State: [facility] / [place] , Service support , Discharge Plan Triage Chief Complaint: Chest Pain ED Provider: Ellis Peterson Dx/Rx/DC Orders Clinical Impression: Chronic anticoagulation, Chest pain Instructions: ED Chest Pain, Uncertain Cause Prescriptions: No Action levothyroxine 175 mcg capsule 175 mcg PO DAILY pantoprazole 40 mg tablet,delayed release (DR/EC) 40 mg PO DAILY ranolazine 500 mg tablet extended release 12 hr 500 mg PO BID Qty: 60 11RF midodrine 10 mg tablet 10 mg PO BID rizatriptan 10 tablet 10 mg PO PRN Patient Comments: metoprolol succinate 25 mg Tablet Extended Release 24 Hr 25 mg PO DAILY Qty: 30 2RF atorvastatin 40 mg tablet 40 mg PO QHS Qty: 30 2RF quetiapine 25 mg tablet 37.5 mg PO QHS lorazepam 0.5 mg tablet 0.5 mg PO Q12H fenofibrate 50 mg Capsule 50 mg PO QHS acetaminophen 325 mg Tablet 650 mg PO Q6H PRN PRN (Reason: Pain 1-10 Or Fever >100.7) Qty: 0 0RF melatonin 3 mg Tablet 3 mg PO QHS PRN PRN (Reason: Insomnia) Qty: 0 0RF potassium chloride 20 mEq Tablet,Er Particles/Crystals 20 meq PO 1XD Qty: 0 0RF insulin glargine-yfgn 100 unit/mL (3 mL) Insulin Pen 35 unit subcut QHS Qty: 0 0RF insulin glargine-yfgn 100 unit/mL (3 mL) Insulin Pen 35 unit subcut BREAKFAST Qty: 0 0RF insulin lispro [Humalog KwikPen Insulin] 100 unit/mL Insulin Pen 20 unit subcut TIDAC Qty: 0 0RF Eliquis 5 mg Tablet 10 mg PO BID Qty: 0 0RF oxycodone 5 mg Tablet 5 mg PO Q4H PRN PRN (Reason: Pain Score 4-10) 1 Days Qty: 6 0RF sennosides-docusate sodium [Stool Softener-Stimulant Laxat] 8.6-50 mg Tablet 2 tab PO BID PRN PRN (Reason: Constipation) Qty: 0 0RF apixaban 5 mg tablet 5 mg PO BID Qty: 10 0RF Rx Instructions: Start the 5 mg twice daily dosing on 01/09/2024 after completion of the 10 mg twice daily course Primary Care Provider: Jarred Lopez Referrals: Jarred Lopez MD [Primary Care Provider] - 3-5 Days if not improving Disposition Disposition: Snf Facility Discharge Location: [facility] What to do if you have Problems For any increased pain, shortness of breath, bleeding, nausea or vomiting, chestpain, or any unexpected problems, contact your Primary Care Provider. Call [facility] ([phone]) or report to the closest Emergency Room. Call 911 if necessary. 01/20/24 0419 <Electronically signed by Ellis Peterson MD> Cosigner Signature (if applicable): CC: Dr. Jarred Lopez MD ~ Signed [facility] Work Phone: 1(808) 914-814903-14-2024 History of Present illness Narrative* Rachel Perea LPN - 01/06/2024 1:34 PM EDT TRANSITION CARE MANAGEMENT (TCM) INITIAL CONTACT Law Enforcement Director Outreach Provider Action/FYI: Initial contact with patient post discharge, spoke to patient. Patient identified by name and . TRANSITION CARE MANAGEMENT INITIAL OUTREACH DOCUMENTATION: 01/06/2024 Date of Outreach: Outreach Attempt 1: Contact Made Date of Discharge 01/05/2024 SUMMARY: -Pt discharged from [facility] on 01/05/24. -Admitted for:1) PE 2)Chest [...] hospitalization: Provider reviewed 01/06/24 [facility] Miscellaneous Notes* Telephone Encounter - Rachel Perea LPN - 01/06/2024 12:57 PM EDT Phoned patient and agreeable with 01/13/24 at 2pm for Hosp F/U documented in this [facility]24 Discharge summary Author Ana Rievra [facility] January 05, 2024 11:34am Note Date/Time January 05, 2024 11: 34am [facility] Medical Records Department [address] [place] [address] Transfer to [facility] MR#: [id number] Acct: [id number] Name: TERRANCE BRAR Rep #:[id number] : 1965 58 From: Ana Rivera DO PCP: Dr. Jarred Lopez MD Status :ADM HOMER Certification of patient admission REQUIRED AT TIME OF ADMISSION. I CERTIFY THAT POST-HOSPITAL ECF SERVICES ARE REQUIRED TO BE GIVEN ON AN IN-PATIENT BASIS BECAUSE OF THE ABOVE NAMED PATIENT'S NEED FOR CUSTODIAL CARE ON A CONTINUING BASIS FOR THE CONDITION(S) FOR WHICH HE/SHE WAS RECEIVING IN-PATIENT HOSPITAL SERVICES PRIOR TO HIS/HER TRANSFER TO THE ECF. 01/05/24 1134<Electronically signed by Ana Rivera DO> Diet Diet Order/Speech Therapy: 01/01/24 23:36 Diet: Cardiac: Calorie-Controlled Food consistency:: Regular Liquid Consistency:: Regular/Thin Dietary Modifications:: Consistent Carbohydrate Type of Dietary Supplement:: Glucerna Shake Diet Comments: 240mL glucerna shake w/ breakfast How many daily calories?: 1800 calorie Routine Orders/Code Status Suppository Frequency: Daily PRN O2 Frequency: PRN Keep PO Greater than or Equal to (%): 89 Routine Lab Work: CBC (1 week) and BMP (1 week) Code Status: Full Code Therapies Weight Bearing: Full weight bearing Physical Therapy: Eval and Treat Occupational Therapy: Eval and Treat Problem/Diagnosis (1) Pulmonary emboli: Status: Acute Code(s): I26.99 - Other pulmonary embolism without acute cor pulmonale (2) Chest pressure: Status: Acute Code(s): R07.89 - Other chest pain Allergies/Procedures Done in Hospital Allergies celecoxib [From Celebrex] Allergy (Verified 06/10/23 14:56) Itching ciprofloxacin [From Cipro] Allergy (Verified 06/10/23 14:56) Swelling ciprofloxacin HCl [From Cipro] Allergy (Verified 06/10/23 14:56) Swelling codeine Allergy (Verified 06/10/23 14:56) Hives ibuprofen Allergy (Verified 06/10/23 14:56) Hives naproxen Allergy (Verified 06/10/23 14:56) Hives Penicillins Allergy (Verified 06/10/23 14:56) Hives tramadol HCl [From Ultram] Allergy (Verified 06/10/23 14:56) Hives ketorolac [From Toradol] Adverse Reaction (Verified 06/10/23 14:56) Swelling Procedures: 2-D Echocardiogram and - (Lower extremity ultrasound/CTA chest) Type of Care/Length of Stay Estimated LOS: Convalescent Care Less Than 30 days Type of Care Needed: Skilled Rehab Potential: Fair Prognosis: Fair Additional Orders/Day of Discharge Day of Discharge: 01/05/24 Dietary and Speech Recommendations Dietitian Recommendations/Changes: Will continue 1800 calorie/consistent carbohydrate, cardiac diet. Will add 240mL glucerna shake w/ breakfast tray as tolerated. Additional ONS as needed once PO better established with meals. Follow Up Care Please follow up with your Primary Care Physician in: 1-2 weeks Please Follow Up With: Miriam Cameron [employer], [employer] When: 1 month Discharge Plan Admission Admit Date/Time: 01/01/24 22:28 Primary Reason for Your Visit: Chest pain Attending Provider: Ana Rivera Primary Care Provider: Jarred Lopez Consulting Providers: Hansa Cast; Chavez Alcala Discharge Orders/Prescriptions Prescriptions: New insulin glargine-yfgn 100 unit/mL (3 mL) Insulin Pen 35 unit subcut QHS Qty: 0 0RF insulin glargine-yfgn 100 unit/mL (3 mL) Insulin Pen 35 unit subcut BREAKFAST Qty: 0 0RF insulin lispro [Humalog KwikPen Insulin] 100 unit/mL Insulin Pen 20 unit subcut TIDAC Qty: 0 0RF Eliquis 5 mg Tablet 10 mg PO BID Qty: 0 0RF oxycodone 5 mg Tablet 5 mg PO Q4H PRN PRN (Reason: Pain Score 4-10) 1 Days Qty: 6 0RF sennosides-docusate sodium [Stool Softener-Stimulant Laxat] 8.6-50 mg Tablet 2 tab PO BID PRN PRN (Reason: Constipation) Qty: 0 0RF apixaban 5 mg tablet 5 mg PO BID Qty: 10 0RF Rx Instructions: Start the 5 mg twice daily dosing on 01/09/2024 after completion of the 10 mg twice daily course Continued levothyroxine 175 mcg capsule 175 mcg PO DAILY pantoprazole 40 mg tablet,delayed release (DR/EC) 40 mg PO DAILY ranolazine 500 mg tablet extended release 12 hr 500 mg PO BID Qty: 60 11RF midodrine 10 mg tablet 10 mg PO BID rizatriptan 10 tablet 10 mg PO PRN Patient Comments: metoprolol succinate 25 mg Tablet Extended Release 24 Hr 25 mg PO DAILY Qty: 30 2RF atorvastatin 40 mg tablet 40 mg PO QHS Qty: 30 2RF quetiapine 25 mg tablet 37.5 mg PO QHS lorazepam 0.5 mg tablet 0.5 mg PO Q12H fenofibrate 50 mg Capsule 50 mg PO QHS acetaminophen 325 mg Tablet 650 mg PO Q6H PRN PRN (Reason: Pain 1-10 Or Fever >100.7) Qty: 0 0RF melatonin 3 mg Tablet 3 mg PO QHS PRN PRN (Reason: Insomnia) Qty: 0 0RF potassium chloride 20 mEq Tablet,Er Particles/Crystals 20 meq PO 1XD Qty: 0 0RF Discontinued insulin glargine-yfgn 100 unit/mL (3 mL) Insulin Pen 15 unit subcut QHS Qty: 0 0RF insulin glargine-yfgn 100 unit/mL (3 mL) Insulin Pen 15 unit subcut BREAKFAST Qty: 0 0RF insulin lispro [Humalog KwikPen Insulin] 100 unit/mL Insulin Pen 5 unit subcut BREAKFAST Qty: 0 0RF insulin lispro [Humalog KwikPen Insulin] 100 unit/mL Insulin Pen 5 unit subcut DINNER Qty: 0 0RF insulin lispro [Humalog KwikPen Insulin] 100 unit/mL Insulin Pen 5 unit subcut LUNCH Qty: 0 0RF Referrals / Follow Up: Jarred Lopez MD [Primary Care Provider] - Miriam Cameron NP, [employer] [Non-Staff -Ordering Privileges] - Within 1 Month (CAD follow up) Disposition Disposition (needs filled in before D/C Order can be placed): Snf Facility 01/05/24 1134 <Electronically signed by Ana Rivera DO> Cosigner Signature (if applicable): CC: Dr. Chavez Alcala DO; Dr. Hansa Cast MD; Dr. Jarred Lopez MD ~ [facility] Work Phone: [phone]) 103-868603-13-2024 Discharge summary Author Ana Rivera [facility] January 05, 2024 11:32am Note Date/Time January 05, 2024 11: 17am [facility] Medical Records Department [address] [place] [address] Discharge Summary 01/05/24 1116 MR#: [id number] Acct: [id number] Name: TERRANCE BRAR Rep #:[id number] : 1965 58 From: Ana Rivera DO PCP: Dr. Jarred Lopez MD Status :ADM HOMER Location: [place] [address] Providers Date of Admission: 01/01/24 Date of Discharge: 01/05/24 Primary Care Physician: Dr. Jarred Lopez MD Reason For Visit: BL PE, CHEST PAIN Diagnosis Discharge Diagnosis (1) Pulmonary emboli: Status: Acute Code(s): I26.99 - Other pulmonary embolism without acute cor pulmonale (2) Chest pressure: Status: Acute Code(s): R07.89 - Other chest pain Medications at Discharge Home Medications rizatriptan 10 mg tablet 10 mg PO PRN Migraine Symptoms 12/27/17 atorvastatin 40 mg tablet 40 mg PO QHS #30 tabs 05/21/22 metoprolol succinate 25 mg tablet,extended release 24 hr 25 mg PO DAILY #30 tabs05/21/22 levothyroxine 175 mcg capsule 175 mcg PO DAILY 06/12/22 pantoprazole 40 mg tablet,delayed release 40 mg PO DAILY 06/12/22 ranolazine 500 mg tablet,extended release,12 hr 500 mg PO BID #60 tabs 06/12/22 midodrine 10 mg tablet 10 mg PO BID 09/09/22 fenofibrate 50 mg capsule 50 mg PO QHS 01/29/23 lorazepam 0.5 mg tablet 0.5 mg PO Q12H anxeity 01/29/23 quetiapine 25 mg tablet 37.5 mg PO QHS 01/29/23 acetaminophen 325 mg tablet 650 mg (2 x 325 mg) PO Q6H PRN PRN Pain 1-10 Or Fever >100.7 #0 tabs 11/24/23 melatonin 3 mg tablet 3 mg PO QHS PRN PRN Insomnia #0 tabs 11/24/23 potassium chloride 20 mEq tablet,extended release(part/cryst) 20 meq PO 1XD #0 tabs 11/24/23 apixaban 5 mg tablet 5 mg PO BID #10 tabs 01/05/24 apixaban 5 mg tablet (Eliquis) 10 mg (2 x 5 mg) PO BID #0 tabs 01/05/24 insulin glargine-yfgn 100 unit/mL (3 mL) subcutaneous pen 35 unit (0.35 mL) subcut BREAKFAST #0 mL 01/05/24 insulin glargine-yfgn 100 unit/mL (3 mL) subcutaneous pen 35 unit (0.35 mL) subcut QHS #0 mL 01/05/24 insulin lispro 100 unit/mL subcutaneous pen (Humalog KwikPen (U-100) Insulin) 20unit (0.2 mL) subcut TIDAC #0 mL 01/05/24 oxycodone 5 mg tablet 5 mg PO Q4H PRN PRN Pain Score 4-10 1 day #6 tabs 01/05/24 sennosides 8.6 mg-docusate sodium 50 mg tablet (Stool Softener-Stimulant Laxative) 2 tab PO BID PRN PRN Constipation #0 tabs 01/05/24 Hospital Course Procedures 2-D Echocardiogram Summary of Care Provided Minutes Spent on Discharge: 38 Hospital Course: Ms. Brar is a 58-year-old white female who presented to the emergency department at [facility] from her half-way facility for acute onset chest pain with radiation to left arm. She was also noted to have worsening swelling in her left lower extremity for several days. A CTA of her chest was performed and she was found to have bilateral PEs. Her troponin was normal and there was low concern for right heart strain. She was given therapeutic Lovenox and admitted for further workup. She did appear significantly weak on presentation. Echocardiogram was performed on 01/02/2024 and showed an EF of 70% no significant valvular abnormalities. She had mild pulmonary artery systolic hypertension with a pulm artery systolic pressure of 35 mmHg and a normal functioning RV. Due to the swelling a Doppler of her lowerextremities was performed and acute DVT in the left posterior tibial vein was found as well as a small superficial thrombophlebitis in the left saphenous vein. Her right lower extremity was unremarkable for any clots. She was transitioned to therapeutic apixaban at 10 mg p.o. twice daily which she will complete 7-day course and then transition to 5 mg p.o. twice daily indefinitely at this point or until her mobility improves. We suspected that her immobility recently related to her back issues was the etiology of her forming DVT/PE. She was trialed on room air and oxygen saturations were 89% show she was replaced on 2 L nasal cannula. We eventually were able to wean her to room air. She had intermittent chest pain however she had negative cardiac enzymes, had acardiac catheterization that had nonobstructive disease in 2021 and her echocardiogram showed no wall motion abnormality. It was suspected that her chest pain intermittently was related to her PE. She also complained of leg pain. 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 She was strongly encouraged to continue incentive spirometer. We also found that she had a markedly elevated hemoglobin A1c on presentation with it being 13.1 on 11/26/2023. We increased her basal insulin to 30 units twice daily and increase her prandial insulin to 15 units 3 times daily. She was instructed to continue this as an outpatient and will need a repeat hemoglobin A1c in 3 months. She was seen by physical and Occupational Therapy and they felt she still needed skilled services so she was discharged to [facility] after pre-CERT was obtained on 01/05/2024. Again, she will need cardiology follow-up as noted above and primary care physician follow-up within the next 2 weeks. Discharge diagnoses: Chest pain Acute bilateral pulmonary emboli Severe debility And activity DM-2 uncontrolled History of orthostatic hypotension Hypertension Hyperlipidemia GERD CKD stage IIIb Hypothyroidism Bipolar disorder PTSD History of tobacco abuse Obesity Physical Exam Const alert, oriented x3, no apparent distress, no limitations and well nourished; Negative for healthy appearing Constitutional Narrative: Middle-age, white female, lying in bed watching television, appears comfortable and nontoxic, appears chronically ill General Appearance: cooperative, comfortable, well kempt and well developed Orientation / Consciousness: awake, oriented to person, oriented to place and oriented to time Exam Limitations: no limitations Nutritional Appearance: obese HEENT normocephalic, head/scalp atraumatic, hearing grossly normal bilaterally and moist oral mucous membranes HEENT Narrative: Mallampati 2-3, no thrush Eyes PERRL, EOMs intact bilaterally and conjunctivae normal Eyes Narrative: No scleral icterus Neck supple and no JVD Neck Narrative: Trachea midline, no thyroid enlargement Resp normal respiratory effort, normal air movement, no retractions, no use of accessory muscles and clear to auscultation bilaterally Resp Narrative: Diminished at bases bilaterally but no adventitious sounds Auscultation: Negative for rales, rhonchi or wheezes Cardio regular rate, regular rhythm, S1 normal heart sound, S2 normal heart sound, no murmurs, no rub, no gallops and no clicks GI normal to inspection, nondistended, normoactive bowel sounds, soft to palpation and non-tender Extremity full ROM Extremity Narrative: Trace left lower extremity edema, no right lower extremity edema, no cyanosis orclubbing, pedal pulses are 2+ Skin no rashes or lesions noted, no wounds, skin turgor normal and no jaundice Neuro oriented x3, CN's II-XII intact bilaterally, moves all extremities and no focal motor deficits Neuro Narrative: Generalized weakness noted Speech: speech normal Psych mental status grossly normal and affect normal Psych Narrative: Eye contact is good, patient interacts appropriately Weight / BMI Weight Weight: 76.2 kg Body Mass Index (BMI) 32.8 ABG / Lab / Microbiology Data 01/05/24 06:45 01/05/24 06:45 Laboratory: Laboratory Results - last 24 hr 01/04/24 12:27: POC Glucose 271 H 01/04/24 16:28: POC Glucose 270 H 01/04/24 21:13: POC Glucose 269 H 01/05/24 06:45: WBC 10.0, RBC 3.57 L, Hgb 10.6 L, Hct 32.7 L, MCV 91.6, MCH 29.7, MCHC 32.4, RDW Std Deviation 45.5 H, RDW Coeff of Anisa 13.4, Plt Count 297,MPV 9.3, Sodium 136, Potassium 3.9, Chloride 101, Carbon Dioxide 28.0, Anion Gap7, BUN 33 H, Creatinine 1.00, Estim Creat Clear Calc 54.57, Est GFR (MDRD) Af Amer 73, Est GFR (MDRD) Non-Af 60, BUN/Creatinine Ratio 33.0 H, Glucose 237 H, Calcium 8.6 01/05/24 08:54: POC Glucose 212 H Meaningful Use Info Meaningful Use Diagnoses (Choose all that apply): VTE VTE Anticoag overlap given w/in hospital stay or rx'd at dc?: No Pt receive overlap for 5 days?: No Reason overlap not ordered, prescribed, or given for 5 days: Treatment Not Indicated Discharge Plan Admission Admit Date/Time: 01/01/24 22:28 Primary Reason for Your Visit: Chest pain Attending Provider: Ana Rivera Primary Care Provider: Jarred Lopez Consulting Providers: Hansa Cast; Chavez Alcala Discharge Orders/Prescriptions Prescriptions: New insulin glargine-yfgn 100 unit/mL (3 mL) Insulin Pen 35 unit subcut QHS Qty: 0 0RF insulin glargine-yfgn 100 unit/mL (3 mL) Insulin Pen 35 unit subcut BREAKFAST Qty: 0 0RF insulin lispro [Humalog KwikPen Insulin] 100 unit/mL Insulin Pen 20 unit subcut TIDAC Qty: 0 0RF Eliquis 5 mg Tablet 10 mg PO BID Qty: 0 0RF oxycodone 5 mg Tablet 5 mg PO Q4H PRN PRN (Reason: Pain Score 4-10) 1 Days Qty: 6 0RF sennosides-docusate sodium [Stool Softener-Stimulant Laxat] 8.6-50 mg Tablet 2 tab PO BID PRN PRN (Reason: Constipation) Qty: 0 0RF apixaban 5 mg tablet 5 mg PO BID Qty: 10 0RF Rx Instructions: Start the 5 mg twice daily dosing on 01/09/2024 after completion of the 10 mg twice daily course Continued levothyroxine 175 mcg capsule 175 mcg PO DAILY pantoprazole 40 mg tablet,delayed release (DR/EC) 40 mg PO DAILY ranolazine 500 mg tablet extended release 12 hr 500 mg PO BID Qty: 60 11RF midodrine 10 mg tablet 10 mg PO BID rizatriptan 10 tablet 10 mg PO PRN Patient Comments: metoprolol succinate 25 mg Tablet Extended Release 24 Hr 25 mg PO DAILY Qty: 30 2RF atorvastatin 40 mg tablet 40 mg PO QHS Qty: 30 2RF quetiapine 25 mg tablet 37.5 mg PO QHS lorazepam 0.5 mg tablet 0.5 mg PO Q12H fenofibrate 50 mg Capsule 50 mg PO QHS acetaminophen 325 mg Tablet 650 mg PO Q6H PRN PRN (Reason: Pain 1-10 Or Fever >100.7) Qty: 0 0RF melatonin 3 mg Tablet 3 mg PO QHS PRN PRN (Reason: Insomnia) Qty: 0 0RF potassium chloride 20 mEq Tablet,Er Particles/Crystals 20 meq PO 1XD Qty: 0 0RF Discontinued insulin glargine-yfgn 100 unit/mL (3 mL) Insulin Pen 15 unit subcut QHS Qty: 0 0RF insulin glargine-yfgn 100 unit/mL (3 mL) Insulin Pen 15 unit subcut BREAKFAST Qty: 0 0RF insulin lispro [Humalog KwikPen Insulin] 100 unit/mL Insulin Pen 5 unit subcut BREAKFAST Qty: 0 0RF insulin lispro [Humalog KwikPen Insulin] 100 unit/mL Insulin Pen 5 unit subcut DINNER Qty: 0 0RF insulin lispro [Humalog KwikPen Insulin] 100 unit/mL Insulin Pen 5 unit subcut LUNCH Qty: 0 0RF Referrals / Follow Up: Jarred Lopez MD [Primary Care Provider] - Miriam Cameron NP, [employer] [Non-Staff -Ordering Privileges] - Within 1 Month (CAD follow up) Disposition Disposition (needs filled in before D/C Order can be placed): Snf Facility Charges/Coding Visit Charges Inpatient E&M: 66929 SNF Disch >30 Min 01/05/24 1132 <Electronically signed by Ana Rivera DO> Cosigner Signature (if applicable): CC: FRANSISCO Cameron; Dr. Jarred Lopez MD; Dr. Ana Rivera DO~ Signed [facility] Work Phone: 1(301) 826-482003-12-2024 Progress note Author Ana Rivera [facility] January 04, 2024 4:59pm Note Date/Time January 04, 2024 5:0 0pm [facility] Medical Records Department [address] [place] [address] Progress Note - Hospitalist 01/04/24 1655 MR#: [id number] Acct: [id number] Name: TERRANCE BRAR Rep #:[id number] : 1965 58 From: Ana Rivera DO PCP: Dr. Jarred Lopez MD Status :ADM HOMER Location: [place] [address] Reason for Visit Reason for Visit: Chest pain Subjective Subjective Patient states she is still having some intermittent left-sided chest pain but it is not persistent. Also complaining of leg pain related to her DVTs. Otherwise no complaints. We did discuss that I am trying to get better control of her blood sugars and she acknowledges that they have been running high. Objective Data Objective Data Vital Signs: Vital Signs Temp Pulse Resp BP Pulse Ox O2 Del Method O2 Flow Rate 96.8 F L 75 17 160/73 H 95 Room Air 2 01/04/24 15:00 01/04/24 15:35 01/04/24 15:00 01/04/24 15:00 01/04/24 15:00 01/04/24 15:00 01/03/24 22:31 Oxygen Flow Rate (L/min) 2 Oxygen Delivery Method Room Air Weight: 76.2 kg Body Mass Index (BMI) 32.8 Intake & Output: Intake and Output for Last 24 Hours 01/02/24 01/03/24 01/04/24 23:59 23:59 23:59 Intake Total 1020 / 1020 Output Total 900 / 900 Balance 120 / 120 Lab / Micro Data 01/04/24 07:25 01/04/24 07:25 Labs: Laboratory Results - last 24 hr 01/03/24 17:19: POC Glucose 356 H 01/03/24 22:28: POC Glucose 276 H 01/04/24 07:25: WBC 9.0, RBC 3.57 L, Hgb 10.3 L, Hct 32.4 L, MCV 90.8, MCH 28.9,MCHC 31.8 L, RDW Std Deviation 44.1 H, RDW Coeff of Anisa 13.4, Plt Count 287, MPV9.3, Immature Gran % (Auto) 1.600 H, Neut % (Auto) 60.6, Lymph % (Auto) 31.0, [place] % (Auto) 5.1, Eos % (Auto) 1.3, Baso % (Auto) 0.4, Absolute Neuts (auto) 5.5, Absolute Lymphs (auto) 2.79, Nucleated RBC % 0, Sodium 136, Potassium 4.3, Chloride 104, Carbon Dioxide 28.0, Anion Gap 4 L, BUN 31 H, Creatinine 0.97, Estim Creat Clear Calc 56.26, Est GFR (MDRD) Af Amer 75, Est GFR (MDRD) Non-Af 62, BUN/Creatinine Ratio 32.0 H, Glucose 281 H, Calcium 8.9 01/04/24 08:03: POC Glucose 257 H 01/04/24 12:27: POC Glucose 271 H Physical Exam Const alert, oriented x3, no apparent distress and well nourished; Negative for healthy appearing Constitutional Narrative: Middle-age, white female, sitting up in a chair at the bedside watching television, appears comfortable and nontoxic, appears chronically ill General Appearance: cooperative and comfortable HEENT normocephalic, head/scalp atraumatic, hearing grossly normal bilaterally and moist oral mucous membranes HEENT Narrative: Mallampati is 2 Resp normal respiratory effort, normal air movement, no retractions, no use of accessory muscles and clear to auscultation bilaterally Resp Narrative: Diminished at bases bilaterally but no adventitious sounds Auscultation: Negative for rales, rhonchi or wheezes Cardio regular rate, regular rhythm, S1 normal heart sound, S2 normal heart sound, no murmurs, no rub, no gallops and no clicks GI normal to inspection, nondistended, normoactive bowel sounds, soft to palpation and non-tender Extremity Extremity Narrative: Trace left lower extremity edema, no right lower extremity edema, no cyanosis orclubbing, pedal pulses are 2+ Neuro oriented x3, moves all extremities and no focal motor deficits Neuro Narrative: Generalized weakness noted Speech: speech normal Psych mental status grossly normal and affect normal Psych Narrative: Eye contact is good, patient interacts appropriately Assessment & Plan Assessment/Plan (1) Pulmonary emboli: (2) Chest pressure: PLAN: Plan Chest pain secondary to acute bilateral pulmonary emboli -CT showed bilateral pulmonary emboli with filling defects in the distal aspectsof the left main pulmonary artery and the descending right pulmonary artery -No right heart strain noted on echo or CT -Continue supplemental oxygen as needed -Continue Eliquis 10 mg twice daily for 7 days then transition to 5 mg twice daily indefinitely--> day 3 of 7 -Likely related to decreased mobility and activity -Echo was unremarkable for any acute findings -Venous duplex did show left lower extremity DVT -Patient is on room air Severe debility/inactivity -Continue PT/OT -Plan is discharge back to skilled facility ([facility] once pre-CERT is obtained -Patient is medically ready for discharge DM-2 uncontrolled -Patient's blood sugars are markedly elevated on presentation -Improved but fasting blood sugar this morning was still 281 despite changes yesterday -Will increase basal insulin from 25 units twice daily to 30 units twice daily -Increase prandial insulin from 10 units 3 times daily to 15 units 3 times daily -Continue sliding scale -Hemoglobin A1c on 11/26/2023 was 13.1 History of orthostatic hypotension -Continue home midodrine Hypertension -continue metoprolol -If blood pressure can tolerate would recommend starting some low-dose lisinopril or ARB -Will continue to monitor trend and possibly start prior to discharge if able Hyperlipidemia -Continue home statin -Continue home fenofibrate GERD - continue home PPI CKD stage IIIb -Baseline serum creatinine is 1.38 -Remained stable -Continue to monitor Hypothyroidism -Continue levothyroxine Bipolar disorder/PTSD -Continue home medications of Celexa, Abilify, Seroquel -Recommended psychiatry follow-up outpatient History of tobacco abuse -Encouraged ongoing cessation DVT prophylaxis -Continue Eliquis as noted above CODE STATUS Full code Disposition: -Discharge back to skilled skilled facility once pre-CERT is obtained Charges/Coding Visit Charges Inpatient E&M: 07045 Subs Hosp L2 01/04/24 1927 <Electronically signed by Ana Rivera DO> Cosigner Signature (if applicable): CC: ~ Signed [facility] Work Phone: 1(897) 785-659903-11-2024 Progress note Author Ana Rivera [facility] January 03, 2024 7:27pm Note Date/Time January 03, 2024 7:1 3pm [facility] Medical Records Department [facility] [place] [address] Progress Note - Hospitalist 01/03/24 190 MR#: [id number] Acct: [id number] Name: TERRANCE BRAR Rep #:[id number] : 1965 58 From: Ana Rivera DO PCP: Dr. Jarred Lopez MD Status :ADM HOMER Location: [place] [address] Reason for Visit Reason for Visit: Chest pain Subjective Subjective Ms. Brar is a 58-year-old white female who presented to the emergency department at [facility] from her half-way facility for acute onset chest pain with radiation to left arm. She was also noted to have worsening swelling in her left lower extremity for several days. A CTA of her chest was performed and she was found to have bilateral PEs. Her troponin was normal and there was low concern for right heart strain. She was given therapeutic Lovenox and admitted for further workup. She did appear significantly weak on presentation. Echocardiogram was performed on 01/02/2024 and showed an EF of 70% no significant valvular abnormalities. She had mild pulmonary artery systolic hypertension with a pulm artery systolic pressure of 35 mmHg and a normal functioning RV. Due to the swelling a Doppler of her lower extremities was performed and acute DVT in the left posterior tibial vein was found as well as a small superficial thrombophlebitis in the left saphenous vein. Her right lower extremity was unremarkable for any clots. She was transition to therapeutic apixaban. She also was found to have severe debility with inactivity from chronic back pain and had a recent hospitalization at the end of October. We suspected that her immobility related to this was the etiology of her forming DVT/PE. She was trialed on room air and oxygen saturations were 89% show she was replaced on 2 L nasal cannula. Patient still having some intermittent left-sided chest pain that seems to be pleuritic in nature. Strongly encouraged incentive spirometry Objective Data Objective Data Vital Signs: Vital Signs Temp Pulse Resp BP Pulse Ox O2 Del Method O2 Flow Rate 98.4 F 78 16 126/51 H 94 Nasal Cannula 2 01/03/24 18:23 01/03/24 18:23 01/03/24 18:23 01/03/24 18:23 01/03/24 18:33 01/03/24 18:33 01/03/24 18:33 Oxygen Flow Rate (L/min) 2 Oxygen Delivery Method Nasal Cannula Weight: 76 kg Body Mass Index (BMI) 32.7 Intake & Output: Intake and Output for Last 24 Hours 01/01/24 01/02/24 01/03/24 22:59 23:59 23:59 Intake Total 540 / 540 Output Total 900 / 900 Balance -360 / -360 Lab / Micro Data 01/03/24 06:05 01/03/24 06:05 Labs: Laboratory Results - last 24 hr 01/02/24 21:31: POC Glucose 277 H 01/03/24 06:05: WBC 9.3, RBC 3.53 L, Hgb 10.3 L, Hct 32.1 L, MCV 90.9, MCH 29.2,MCHC 32.1, RDW Std Deviation 45.0 H, RDW Coeff of Anisa 13.6, Plt Count 291, MPV 9.4, Sodium 137, Potassium 4.5, Chloride 103, Carbon Dioxide 26.0, Anion Gap 8, BUN 37 H, Creatinine 1.13 H, Estim Creat Clear Calc 48.23, Est GFR (MDRD) Af Amer 63, Est GFR (MDRD) Non-Af 52 L, BUN/Creatinine Ratio 32.7 H, Glucose 403 H,Calcium 8.5 01/03/24 08:12: POC Glucose 311 H 01/03/24 11:03: POC Glucose 333 H 01/03/24 17:19: POC Glucose 356 H Radiography Diagnostic Testing: Radiology Impression Venous Doppler Study 01/02/24 16:15 Interpretation Summary Acute deep venous thrombosis left posterior tibial vein Superficial thrombophlebitis left small saphenous vein No evidence for acute deep venous thrombosis right lower extremity Patent and compressible bilateral great saphenous veins Ordering Physician: Chavez Alcala Performed By: Олег Vazquez RVT Echocardiogram 01/02/24 16:27 Interpretation Summary The estimated ejection fraction is 70 %. Ordering Physician: Chavez Alcala Performed By: Ezequiel Dobson RCS Physical Exam Const alert, oriented x3, no apparent distress and well nourished; Negative for healthy appearing Constitutional Narrative: Middle-age, white female, sitting up in bed talking on the phone, appears comfortable and nontoxic, appears chronically ill HEENT head/scalp atraumatic and moist oral mucous membranes HEENT Narrative: Mallampati 2, no thrush Head and Scalp: normocephalic Resp normal respiratory effort, no retractions, no use of accessory muscles and clearto auscultation bilaterally Resp Narrative: Diminished at bases bilaterally but no adventitious sounds Auscultation: Negative for rales, rhonchi or wheezes Cardio regular rate, regular rhythm, S1 normal heart sound, S2 normal heart sound, no murmurs, no rub, no gallops and no clicks GI normal to inspection, nondistended, normoactive bowel sounds, soft to palpation and non-tender Extremity Extremity Narrative: Trace left lower extremity edema, no right lower extremity edema, no clot cyanosis or clubbing Neuro oriented x3, moves all extremities and no focal motor deficits Speech: speech normal Psych affect normal Psych Narrative: Eye contact is good, patient interacts appropriately Assessment & Plan Assessment/Plan (1) Pulmonary emboli: (2) Chest pressure: PLAN: Plan Chest pain secondary to acute bilateral pulmonary emboli -CT showed bilateral pulmonary emboli with filling defects in the distal aspectsof the left main pulmonary artery and the descending right pulmonary artery -No right heart strain noted on echo or CT -Continue supplemental oxygen as needed -Continue Eliquis 10 mg twice daily for 7 days then transition to 5 mg twice daily indefinitely -Likely related to decreased mobility and activity -Echo was unremarkable for any acute findings -Venous duplex did show left lower extremity DVT Severe debility/inactivity -Continue PT/OT -Plan is discharge back to skilled facility ([place]) once pre-CERT is obtained -Patient is medically ready for discharge DM-2 uncontrolled -Patient's blood sugars are markedly elevated on presentation -Will increase basal insulin to 25 units twice daily -Increase prandial insulin to 10 units 3 times daily -Continue sliding scale -Hemoglobin A1c on 11/26/2023 was 13.1 History of orthostatic hypotension -Continue home midodrine Hypertension -continue metoprolol Hyperlipidemia -Continue home statin -Continue home fenofibrate GERD - continue home PPI CKD stage IIIb -Baseline serum creatinine is 1.38 -Remained stable -Continue to monitor Hypothyroidism -Continue levothyroxine Bipolar disorder/PTSD -Continue home medications of Celexa, Abilify, Seroquel -Recommended psychiatry follow-up outpatient History of tobacco abuse -Encouraged ongoing cessation DVT prophylaxis -Continue Eliquis as noted above CODE STATUS Full code Disposition: -Discharge back to skilled skilled facility once pre-CERT is obtained Charges/Coding Visit Charges Inpatient E&M: 13134 Subs Hosp L2 01/03/241926 <Electronically signed by Ana Rivera DO> Cosigner Signature (if applicable): CC: ~ Signed [facility] Work Phone: 1(198) 991-269303-10-2024 Progress note Author Chavez Alcala [facility] January 02, 2024 4:34pm Note Date/Time January 02, 2024 12: 04pm [facility] Medical Records Department [address] [place] [address] Progress Note - Hospitalist 01/02/24 1204 MR#: [id number] Acct: [id number] Name: TERRANCE BRAR Rep #:[id number] : 1965 58 From: Chavez mayo DO PCP: Dr. Jarred Lopez MD Status :ADM HOMER Location: [place] [address] Reason for Visit Reason for Visit: Diagnoses Other pulmonary embolism without acute cor pulmonale (01/01/24) Subjective Subjective Patient presented to the ED yesterday evening from SNF for new onset chest pain with radiation to the left arm. She also noted worsening swelling in her lower left leg for several days. She was found on CTA chest to have evidence of bilateral PEs. Notably had normal troponin values and low concern for right heart strain. She was given a dose of therapeutic Lovenox and admitted for further evaluation. Patient seen at bedside this morning. Patient was laying comfortably in bed, no acute distress. Patient is very weak appearing at baseline, was not moving around in bed much. States that she generally feels weak but this has been consistent for her over the last few months. She is currently breathing comfortably on room air and denies any shortness of breath at rest. She does report ongoing mild left lower extremity pain. She otherwisedenies any acute pain or discomfort. No other acute concerns. Objective Data Objective Data Vital Signs: Vital Signs Temp Pulse Resp BP Pulse Ox O2 Del Method 98 F 85 16 145/73 H 97 Room Air 01/02/24 08:55 01/02/24 08:55 01/02/24 08:55 01/02/24 08:55 01/02/24 08:55 01/02/24 08:55 Oxygen Delivery Method Room Air Weight: 79 kg Body Mass Index (BMI) 34.0 Intake & Output: Intake and Output for Last 24 Hours 12/31/23 01/01/24 01/03/24 23:59 23:59 00:59 Intake Total 220 / 220 2200 / 2200 Output Total 0 / 0 3200 / 3200 Balance 220 / 220 -1000 / -1000 Lab / Micro Data 01/02/24 05:16 01/02/24 05:16 Labs: Laboratory Results - last 24 hr 01/01/24 18:43: WBC 10.0, RBC 3.91 L, Hgb 11.2 L, Hct 35.0 L, MCV 89.5, MCH 28.6, MCHC 32.0, RDW Std Deviation 43.3, RDW Coeff of Anisa 13.3, Plt Count 309, MPV 9.4, Immature Gran % (Auto) 0.900, Neut % (Auto) 66.7, Lymph % (Auto) 26.5, [place] % (Auto) 4.7, Eos % (Auto) 0.8, Baso % (Auto) 0.4, Absolute Neuts (auto) 6.7, Absolute Lymphs (auto) 2.66, Nucleated RBC % 0, D-Dimer Quant (PE/DVT) 1.83H*, Sodium 134 L, Potassium 4.7, Chloride 102, Carbon Dioxide 27.0, Anion Gap 5,BUN 28 H, Creatinine 1.38 H, Estim Creat Clear Calc 39.76, Est GFR (MDRD) Af Amer 50 L, Est GFR (MDRD) Non-Af 41 L, BUN/Creatinine Ratio 20.3 H, Glucose 405 H, Calcium 9.1, Troponin I High Sens 15 01/01/24 21:03: Troponin I High Sens 17 01/02/24 00:08: POC Glucose 287 H 01/02/24 05:16: WBC 7.1, RBC 3.76 L, Hgb 10.9 L, Hct 33.9 L, MCV 90.2, MCH 29.0,MCHC 32.2, RDW Std Deviation 44.0 H, RDW Coeff of Anisa 13.4, Plt Count 279, MPV 9.7, Immature Gran % (Auto) 1.700 H, Neut % (Auto) 60.2, Lymph % (Auto) 31.4, [place] % (Auto) 5.2, Eos % (Auto) 1.1, Baso % (Auto) 0.4, Absolute Neuts (auto) 4.3, Absolute Lymphs (auto) 2.24, Nucleated RBC % 0, Sodium 134 L, Potassium 4.4, Chloride 103, Carbon Dioxide 25.0, Anion Gap 6, BUN 24 H, Creatinine 1.17 H, Estim Creat Clear Calc 47.55, Est GFR (MDRD) Af Amer 61, Est GFR (MDRD) Non-Af50 L, BUN/Creatinine Ratio 20.5 H, Glucose 372 H, Calcium 8.7, Total Bilirubin 0.30, AST 34, ALT 27, Alkaline Phosphatase 56, Total Protein 6.9, Albumin 3.0 L,Globulin 3.9, Albumin/Globulin Ratio 0.8 L, TSH 0.36, Free T4 1.82 H 01/02/24 08:34: POC Glucose 344 H Radiography Diagnostic Testing: Radiology Impression Chest X-Ray 01/01/24 19:07 IMPRESSION: No evidence of active intrathoracic disease. Electronically Signed: Tonya Hager MD at 22:39 EST , Chest CTA 01/01/24 19:21 IMPRESSION: Positive for bilateral segmental pulmonary emboli. No right heart strain. Electronically Signed: Anam Zimmer MD at 22:04 EST , ADDENDUM: 01/01/24 2242 IMPRESSION: Positive for bilateral segmental pulmonary emboli. No right heart strain. N.B. : The above Results were Read Back by Anam Zimmer MD to Raisa Mc MD, and understanding confirmed on 01/01/2024 22:35:59 (ET). Electronically Signed: Anam Zimmer MD at 22:04 EST , Physical Exam Const alert and no apparent distress Constitutional Narrative: Middle-age female, obese, weak and chronically ill-appearing, otherwise laying comfortably in bed, conversing normally, no acute distress. General Appearance: cooperative and comfortable HEENT normocephalic, head/scalp atraumatic, hearing grossly normal bilaterally and nasal mucous membranes and turbinates normal Eyes PERRL, EOMs intact bilaterally and conjunctivae normal Neck full ROM Chest inspection of chest normal Resp normal respiratory effort, normal air movement, no use of accessory muscles and clear to auscultation bilaterally Resp Narrative: Breathing comfortably on room air. Good air movement throughout bilaterally, nowheezing or crackles noted. Cardio regular rate, regular rhythm, no murmurs and peripheral pulses 2+ throughout GI normal to inspection, nondistended, normoactive bowel sounds, soft to palpation,non-tender and non-distended Back/Spine normal ROM Extremity full ROM Extremity Narrative: Mild bilateral lower extremity swelling, appears similar in both legs. Both legs with mild tenderness to palpation. No overt erythema noted. Skin no rashes or lesions noted Neuro moves all extremities and no focal motor deficits Speech: speech normal Psych mental status grossly normal Assessment & Plan Assessment/Plan (1) Pulmonary emboli: PLAN: Plan Patient is a 58-year-old female who presented to [facility] ED on 01/01/2024 from SNF for chest pain with radiation down the left arm. 1. Acute bilateral pulmonary emboli, low risk ? CTA chest on admit showed bilateral pulmonary emboli with filling defects in the distal aspects of the left main pulmonary artery and in the descending rightpulmonary artery. No right heart strain noted. Patient stable on room air withgood oxygen saturations since admission. ? Given dose of therapeutic Lovenox in the ED, then started on Eliquis 10 mg twice daily for VTE dosing. ? Presume this is secondary to recent debility with inactivity as noted below. ? Venous duplex ultrasound and echo ordered. Pending those results and if patient remains stable, may be okay for discharge back to SNF tomorrow. Continue Eliquis. Continue cardiac monitoring and continuous pulse oximetry. 2. Severe debility and inactivity, chronic back pain ? Patient recently hospitalized at [facility] from 11/19-11/24. Was noted to have fairlysevere deconditioning during that hospitalization that apparently was worsened by her chronic back pain. Was discharged to SNF at that time. Has remained at that SNF ([place]) since then and suspect that she has had very limited activity while there. ? PT/OT/case management following. 3. Type 2 diabetes mellitus with hyperglycemia ? Home regimen of Lantus 15 units twice daily, Humalog 5 units with meals. Blood sugars around 400 on admit, no evidence of DKA. Resume home regimen with high- medium sliding scale insulin, adjust as needed. Chronic medical conditions: ? Obesity: BMI 34 on admit. Complicates hospital course, care and prognosis. ? CKD stage III: Creatinine 1.38 on admit, at baseline. Stable. ? Chronic normocytic anemia: Hemoglobin 11.2 on admit, at baseline. Stable. ? History of orthostatic hypotension: Continue home midodrine. ? Hypertension: Continue home Toprol. ? Hyperlipidemia: Continue home statin and fenofibrate. ? GERD: Continue home PPI. ? Hypothyroidism: Continue home Synthroid. ? Anxiety and depression: Continue home Seroquel at night, Ativan 0.5 mg twice daily. ? Former tobacco use: Encouraged continued cessation. DVT prophylaxis: Eliquis CODE STATUS: Full code, verified Expected disposition: Back to [facility], 1 to 2 days Total clinical time spent by myself addressing the patient's medical issues, reviewing all the data, and collaborating with patient's care team: 35 minutes. 01/02/24 1634 <Electronically signed by Chavez Alcala DO> Cosigner Signature (if applicable): CC: ~ Signed [facility] Work Phone: 1(420) 993-376103-10-2024 History and physical note Author Hansa Cast [facility] January 01, 2024 11:38pm Note Date/Time January 01, 2024 10:3 2pm [facility] Medical Records Department [address] [place] [address] H&P Exam - Hospitalist 01/01/245 MR#: [id number] Acct: [id number] Name: TERRANCE BRAR Rep #:[id number] : 1965 58 From: Hansa Cast MD PCP: Dr. Jarred Lopez MD Status :ADM HOMER Location: [place] [address] HPI - General General Date of Admission: 01/01/24 Date of Service: 01/01/24 Chief Complaint: Chest pain. HPI Narrative The patient is a 58 y/o F w/ PMHx: Orthostatic hypotension, Obesity, Chronic anemia, CKD stage III unclear subtype, Anxiety and Depression, Chronic back pain, HTN, HLD, Former tobacco use, Hypothyroidism, GERD w/ Hx gastric ulcer, Diabetes mellitus type II, Chronic migraines, Chart reported history of prior opiate abuse who presents to the [facility] ED on 01/01/2024 with history of chest discomfort with radiation to the left upper extremity starting approximately an hour and a half prior to ED arrival noted to be sharp in nature also going into her back administered aspirin and 1 nitroglycerin per EMS with pain improvement from a 10 out of 10 to a 4 out of 10 with recent swelling in her left lower extremity which has been ongoing for several days prompting ED evaluation. Patient also notes that she was recently diagnosed with a UTI following onset ofmild hematuria at the skilled facility and was started on antibiotics but cannotgive the agent. She denied any dysuria, urinary frequency, urgency or retentionwith onset of the hematuria. She notes that in the last 2 days she had onset ofloose stools. She denies the stools being foul-smelling. Workup in the ED included T97.6, heart rate 85, BP 145 or 61, respiratory rate 18, 97% on room air, CBC with WBC 10, hemoglobin 11.2, MCV 89.5, platelet 309 without marked shift, D-dimer 1.83, BMP with sodium 134, BUN/creatinine 28/1.38, glucose 405, troponin initial 15 with repeat delta 17, CTPA with bilateral segmental pulmonary emboli with no evidence of any cardiac heart strain, EKG with sinus rhythm with no acute evidence of ischemia. In the ED patient ministered Zofran 4 mg IV x 1, morphine 4 mg IV x 2, maintenance IV fluids in addition to Lovenox therapeutic 80 mg subcu regimen x 1. [facility] Medical History (Updated 01/01/24 @ 23:[address] Hansa Cast MD) Anxiety and depression Carpal tunnel syndrome Chronic back pain CKD (chronic kidney disease) stage 3, GFR 30-59 ml/min Diabetes mellitus, type 2 Essential hypertension Former smoker History of left heart catheterization (LHC) (~05/21/22) HTN (hypertension) Hyperlipidemia Hypothyroidism Intervertebral disc disorder with radiculopathy of lumbar region Kidney stones Migraines Normochromic normocytic anemia Obesity (BMI 35.0-39.9 without comorbidity) Opiate abuse, continuous Orthostatic hypotension Parathyroid disease Stomach ulcer Thyroid disease Home Medications rizatriptan 10 mg tablet 10 mg PO PRN Migraine Symptoms 12/27/17 [History Last Taken 01/01/24] atorvastatin 40 mg tablet 40 mg PO QHS #30 tabs 05/21/22 [Rx Last Taken 12/31/23] metoprolol succinate 25 mg tablet,extended release 24 hr 25 mg PO DAILY #30 tabs05/21/22 [Rx Last Taken 01/01/24] levothyroxine 175 mcg capsule 175 mcg PO DAILY 06/12/22 [History Last Taken 01/01/24] pantoprazole 40 mg tablet,delayed release 40 mg PO DAILY 06/12/22 [History Last Taken 01/01/24] ranolazine 500 mg tablet,extended release,12 hr 500 mg PO BID #60 tabs 06/12/22 [Rx Last Taken 01/01/24] midodrine 10 mg tablet 10 mg PO BID 09/09/22 [History Last Taken 01/01/24] fenofibrate 50 mg capsule 50 mg PO QHS 01/29/23 [History Last Taken 12/31/23] lorazepam 0.5 mg tablet 0.5 mg PO Q12H anxeity 01/29/23 [History Last Taken 12/31/23] quetiapine 25 mg tablet 37.5 mg PO QHS 01/29/23 [History Last Taken 11/15/23] acetaminophen 325 mg tablet 650 mg (2 x 325 mg) PO Q6H PRN PRN Pain 1-10 Or Fever >100.7 #0 tabs 11/24/23 [Rx Last Taken Unknown] insulin glargine-yfgn 100 unit/mL (3 mL) subcutaneous pen 15 unit (0.15 mL) subcut BREAKFAST #0 mL 11/24/23 [Rx Last Taken 01/01/24] insulin glargine-yfgn 100 unit/mL (3 mL) subcutaneous pen 15 unit (0.15 mL) subcut QHS #0 mL 11/24/23 [Rx Last Taken 12/31/23] insulin lispro 100 unit/mL subcutaneous pen (Humalog KwikPen (U-100) Insulin) 5 unit (0.05 mL) subcut BREAKFAST #0 mL 11/24/23 [Rx Last Taken 01/01/24] insulin lispro 100 unit/mL subcutaneous pen (Humalog KwikPen (U-100) Insulin) 5 unit (0.05 mL) subcut DINNER #0 mL 11/24/23 [Rx Last Taken 12/31/23] insulin lispro 100 unit/mL subcutaneous pen (Humalog KwikPen (U-100) Insulin) 5 unit (0.05 mL) subcut LUNCH #0 mL 11/24/23 [Rx Last Taken 01/01/24] melatonin 3 mg tablet 3 mg PO QHS PRN PRN Insomnia #0 tabs 11/24/23 [Rx Last Taken 12/31/23] potassium chloride 20 mEq tablet,extended release(part/cryst) 20 meq PO 1XD #0 tabs 11/24/23 [Rx Last Taken 01/01/24] Allergy/AdvReac Type Severity Reaction Status Date / Time celecoxib [From Celebrex] Allergy Itching Verified 06/10/23 14:56 ciprofloxacin [From Cipro] Allergy Swelling Verified 06/10/23 14:56 ciprofloxacin HCl Allergy Swelling Verified 06/10/23 14:56 [From Cipro] codeine Allergy Hives Verified 06/10/23 14:56 ibuprofen Allergy Hives Verified 06/10/23 14:56 naproxen Allergy Hives Verified 06/10/23 14:56 Penicillins Allergy Hives Verified 06/10/23 14:56 tramadol HCl [From Ultram] Allergy Hives Verified 06/10/23 14:56 ketorolac [From Toradol] AdvReac Swelling Verified 06/10/23 14:56 Family History (Updated 01/01/24 @ 23:[address] Hansa Cast MD) Mother Cancer CVA (cerebral vascular accident) Hypertension Heart disease Myocardial infarction Diabetes Father Asthma Surgical History H/O: hysterectomy History of cholecystectomy Hx of section S/P trigger finger release Social History (Updated 01/01/24 @ 23:[address] Hansa Cast MD) household members: other details: currently living in a NH for therapy for chronic back pain housing: [facility] Smoking Status: Former smoker Tobacco: How many years used: 46 how long ago did patient quit smoking: Quit 09/2021, smoked 1 ppd since teen until quit. alcohol intake: never substance use type: other details: History of chronic opiate use. Denies abuse. ROS ROS Narrative Admission Review of Systems: CONSTITUTIONAL: No weight loss, fever, chills, + weakness or fatigue. HEENT: Eyes: No visual loss, blurred vision, double vision or yellow sclerae. Ears, Nose, Throat: No hearing loss, sneezing, congestion, runny nose or sore throat. SKIN: No rash or itching, lesions, wounds. CARDIOVASCULAR: + Pleuritic chest discomfort, chronic lower extremity edema withworsened left lower extremity edema recently. No palpitations, orthopnea, syncopal events. RESPIRATORY: + shortness of breath. No cough or sputum, wheezing, hemoptysis. GASTROINTESTINAL: + Recent loose stools. No anorexia, nausea, vomiting, abdominal pain, melena, BRBPR. GENITOURINARY: + Recent episode of hematuria with diagnosis UTI. No dysuria, frequency, urgency or retention. NEUROLOGICAL: + History of chronic migraines, history of orthostasis. Dizziness, syncope, paralysis, ataxia, numbness or tingling in the extremities, focal weakness, change in bowel or bladder control, seizure. MUSCULOSKELETAL: + muscle, back pain, joint pain or stiffness. HEMATOLOGIC: No anemia, bleeding or bruising. LYMPHATICS: No enlarged nodes. No history of splenectomy. PSYCHIATRIC: + History of anxiety and depression. ENDOCRINOLOGIC: No reports of sweating, cold or heat intolerance. No polyuria orpolydipsia. ALLERGIES: + History of hives. Vital Signs Vital Signs Vital Signs: 01/01/24 18:32 01/01/24 18:36 01/01/24 18:43 Temperature 97.9 F Temperature Source Oral Pulse Rate 94 Respiratory Rate 16 Respiratory Effort Non-Labored Blood Pressure 139/76 H Blood Pressure Mean 97 Pulse Ox 97 97 Oxygen Delivery Method Room Air Room Air 01/01/24 19:32 01/01/24 20:00 01/01/24 21:00 Temperature Temperature Source Pulse Rate 85 87 84 Respiratory Rate 18 19 H 16 Respiratory Effort Blood Pressure 145/61 H 137/56 H 162/80 H Blood Pressure Mean 89 83 107 Pulse Ox 97 96 99 Oxygen Delivery Method Room Air Room Air Room Air 01/01/24 22:00 01/01/24 22:20 Temperature 97.6 F L Temperature Source Pulse Rate 83 84 Respiratory Rate 13 13 Respiratory Effort Blood Pressure 146/62 H 146/62 H Blood Pressure Mean 90 90 Pulse Ox 99 99 Oxygen Delivery Method Room Air Weight Weight: 169 lb 12.095 oz Body Mass Index (BMI) 33.1 Physical Exam Narrative Physical Examination: General: Awake, alert, oriented x 3 and cooperative, seated upright in the ED bed, fatigued otherwise no acute distress, notes pleuritic discomfort still ongoing rates it currently 4 out of 10 in severity. Skin: Normal color, normal turgor, no icterus, no cyanosis except occasional staged ecchymoses, abrasion. HEENT: AT/NC, EOMI, PERRLA, MMM, no carotid bruits or JVD noted. Lungs: Mildly diminished, greater bases, mildly decreased effort secondary to pleuritic discomfort, no rales, ronchi or wheezing. Heart: Regular rate and rhythm; no gallop, rub audible. Abdomen: Soft, obese, NTTP, ND, distant normal BS, no appreciated HSM. Extremities: No cyanosis, no clubbing, left lower extremity with distal edema noted, some calf discomfort with palpation. Neurological: Patient awake, alert, oriented as noted, cognitive function intact; pupils equally reactive to light and accommodation, cranial nerves II-XII grossly normal, moving all 4 extremities, no focal deficits, strength moderately to severely globally decreased secondary to acute presentation complaints as well as significant chronic back issues. Psychiatric: Affect appears fatigued, mildly uncomfortable, no acute evidence ofdepressive or anxiety feelings but does have underlying history. Results Lab / Micro Data 01/01/24 18:43 01/01/24 18:43 Labs: Laboratory Results - last 24 hr 01/01/24 18:43: WBC 10.0, RBC 3.91 L, Hgb 11.2 L, Hct 35.0 L, MCV 89.5, MCH 28.6, MCHC 32.0, RDW Std Deviation 43.3, RDW Coeff of Anisa 13.3, Plt Count 309, MPV 9.4, Immature Gran % (Auto) 0.900, Neut % (Auto) 66.7, Lymph % (Auto) 26.5, [place] % (Auto) 4.7, Eos % (Auto) 0.8, Baso % (Auto) 0.4, Absolute Neuts (auto) 6.7, Absolute Lymphs (auto) 2.66, Nucleated RBC % 0, D-Dimer Quant (PE/DVT) 1.83H*, Sodium 134 L, Potassium 4.7, Chloride 102, Carbon Dioxide 27.0, Anion Gap 5,BUN 28 H, Creatinine 1.38 H, Estim Creat Clear Calc 39.76, Est GFR (MDRD) Af Amer 50 L, Est GFR (MDRD) Non-Af 41 L, BUN/Creatinine Ratio 20.3 H, Glucose 405 H, Calcium 9.1, Troponin I High Sens 15 01/01/24 21:03: Troponin I High Sens 17 Imaging Radiology Impression Chest CTA 01/01/24 19:21 IMPRESSION: Positive for bilateral segmental pulmonary emboli. No right heart strain. Electronically Signed: Anam Zimmer MD at 22:04 EST , Assessment & Plan Assessment/Plan (1) Pulmonary emboli: PLAN: Plan The patient is a 58 y/o F w/ PMHx: Orthostatic hypotension, Obesity, Chronic anemia, CKD stage III unclear subtype, Anxiety and Depression, Chronic back pain, HTN, HLD, Former tobacco use, Hypothyroidism, GERD w/ Hx gastric ulcer, Diabetes mellitus type II, Chronic migraines, Chart reported history of prior opiate abuse who presents to the [facility] ED on 01/01/2024 with history of chest discomfort with radiation to the left upper extremity starting approximately an hour and a half prior to ED arrival noted to be sharp in nature also going into her back administered aspirin and 1 nitroglycerin per EMS with pain improvement from a 10 out of 10 to a 6 out of 10 with recent swelling in her left lower extremity which has been ongoing for several days prompting ED evaluation. #1. Chest pain secondary to Bilateral Pulmonary Embolism likely secondary to recent LLE DVT secondary to severe debility, inactivity secondary to Chronic back pain: EKG without acute findings, CXR no acute process, D-dimer elevated, CTPA with bilateral segmental pulmonary emboli, trop x 2. Patient notes no recent travel but she has been in the SNF secondary to debility with chronic back pain using a wheelchair with severe debility, severe inactivity. Will admitto PCU, maintain on cardiac telemetry. Cardiac enzyme x 2 already normal range.Will transition in AM to eliquis regimen. Given no cardiac strain will defer ECHO. If pain improved would consider transitioning back to SNF 01/02/24. #2. Recent hematuria with diagnosis of acute urinary tract infection, unclear organism: Clarifying exactly what agent patient had been initiated on, will continue to be cautious and will also obtain stool culture to assure loose stools are primarily secondary to antibiotics only, if C. difficile is negative will initiate loperamide therapy as needed. #3. Chronic normocytic anemia: Admission hemoglobin 11.2, MCV 89.5, baseline hemoglobin primarily 11 range, stable, continue to trend. #4. Chronic Kidney Disease Stage III, unclear subtype: Admission BUN/Cr 28/1.38, baseline renal function primarily 1.3-1.7, more recently 12/31/2023 1.38,stable, repeat BMP in AM. #5. Orthostatic hypotension: Will continue patient home chronic midodrine regimen, positional changes cautiously, fall precautions as needed. #6. Hypertension: Continue home regimen including metoprolol, PRN hydralazine. #7. Hyperlipidemia: We will continue patient home statin and fenofibrate regimen. #8. Diabetes mellitus type II: Hold oral home regimen, continue home insulin regimen, ADA diet, accu checks w/ ISS. #9. Anxiety and Depression: Will cautiously continue patient low-dose lorazepamregimen as well as quetiapine. #10. Chart reported history hypothyroidism: Per current regimen listed not on regimen but clarifying, will obtain free T4 and TSH to be cautious. #11. GERD w/ Hx gastric ulcer: We will continue patient on PPI. #12. History chronic migraines: Patient uses triptan as needed, if onset of migraine certainly could initiate. #13. Former tobacco use: Encourage continued tobacco cessation. #14. Obesity: Weight loss and lifestyle changes encouraged. #15. DVT prophylaxis: Will continue as noted Eliquis therapy which will be initiated in a.m. as dose with therapeutic Lovenox x 1 in the ED. #16. CODE status: Patient HCPOA and living will are not in place but her would be her decision-maker if she notes if she was unable. Full Code status. Charges/Coding Visit Charges Inpatient E&M: 88253 Init Hosp L3 01/01/24 4508 <Electronically signed by Hansa Cast MD> Cosigner Signature (if applicable): CC: Dr. Hansa Cast MD; Dr. Jarred Lopez MD~ Signed [facility] Work Phone: [phone] Discharge summary Author Raisa Mc [facility] January 01, 2024 10:58pm Note Date/Time January 01, 2024 6:48 pm [facility] Medical Records Department [address] [place] [address] Emergency Department Summary 01/01/24 MR#: [id number] Acct: [id number] Name: TERRANCE BRAR Rep #:[id number] : 1965 58 From: Raisa Mc MD PCP: Dr. Jarred Lopez MD Status :REG ER Location: ED HPI History of Present Illness Chief Complaint: Chest Pain Informant: patient Onset/Context/Timing Onset: Hours Activity at onset: gradual Narrative Narrative: Patient present secondary to chest pain with radiation to her left arm. She states pain started about an hour and a half prior to arrival she describes it as sharp in nature. He is in the left side the chest, goes down her left arm, and into her left back. She was given aspirin and 1 nitro with EMS and states pain improved from a 10 to a 6. She also complains of swelling in her left footthat has been ongoing for the past several days. [facility] Medical History Carpal tunnel syndrome Chronic back pain CKD (chronic kidney disease) stage 3, GFR 30-59 ml/min Depression Diabetes Difficulty in walking, not elsewhere classified Elevated troponin Essential hypertension Fatigue Former smoker History of left heart catheterization (LHC) (~05/21/22) HTN (hypertension) Hyperlipidemia Hypokalemia Hypothyroidism Intervertebral disc disorder with radiculopathy of lumbar region Kidney stones Migraines Normochromic normocytic anemia Obesity (BMI 35.0-39.9 without comorbidity) Opiate abuse, continuous Orthostatic hypotension Parathyroid disease Stomach ulcer Thyroid disease Type II diabetes mellitus, uncontrolled Home Medications rizatriptan 10 mg tablet 10 mg PO PRN Migraine Symptoms 12/27/17 [History Last Taken 01/01/24] atorvastatin 40 mg tablet 40 mg PO QHS #30 tabs 05/21/22 [Rx Last Taken 12/31/23] metoprolol succinate 25 mg tablet,extended release 24 hr 25 mg PO DAILY #30 tabs05/21/22 [Rx Last Taken 01/01/24] levothyroxine 175 mcg capsule 175 mcg PO DAILY 06/12/22 [History Last Taken 01/01/24] pantoprazole 40 mg tablet,delayed release 40 mg PO DAILY 06/12/22 [History Last Taken 01/01/24] ranolazine 500 mg tablet,extended release,12 hr 500 mg PO BID #60 tabs 06/12/22 [Rx Last Taken 01/01/24] midodrine 10 mg tablet 10 mg PO BID 09/09/22 [History Last Taken 01/01/24] fenofibrate 50 mg capsule 50 mg PO QHS 01/29/23 [History Last Taken 12/31/23] lorazepam 0.5 mg tablet 0.5 mg PO Q12H anxeity 01/29/23 [History Last Taken 12/31/23] quetiapine 25 mg tablet 37.5 mg PO QHS 01/29/23 [History Last Taken 11/15/23] acetaminophen 325 mg tablet 650 mg (2 x 325 mg) PO Q6H PRN PRN Pain 1-10 Or Fever >100.7 #0 tabs 11/24/23 [Rx Last Taken Unknown] insulin glargine-yfgn 100 unit/mL (3 mL) subcutaneous pen 15 unit (0.15 mL) subcut BREAKFAST #0 mL 11/24/23 [Rx Last Taken 01/01/24] insulin glargine-yfgn 100 unit/mL (3 mL) subcutaneous pen 15 unit (0.15 mL) subcut QHS #0 mL 11/24/23 [Rx Last Taken 12/31/23] insulin lispro 100 unit/mL subcutaneous pen (Humalog KwikPen (U-100) Insulin) 5 unit (0.05 mL) subcut BREAKFAST #0 mL 11/24/23 [Rx Last Taken 01/01/24] insulin lispro 100 unit/mL subcutaneous pen (Humalog KwikPen (U-100) Insulin) 5 unit (0.05 mL) subcut DINNER #0 mL 11/24/23 [Rx Last Taken 12/31/23] insulin lispro 100 unit/mL subcutaneous pen (Humalog KwikPen (U-100) Insulin) 5 unit (0.05 mL) subcut LUNCH #0 mL 11/24/23 [Rx Last Taken 01/01/24] melatonin 3 mg tablet 3 mg PO QHS PRN PRN Insomnia #0 tabs 11/24/23 [Rx Last Taken 12/31/23] potassium chloride 20 mEq tablet,extended release(part/cryst) 20 meq PO 1XD #0 tabs 11/24/23 [Rx Last Taken 01/01/24] Allergy/AdvReac Type Severity Reaction Status Date / Time celecoxib [From Celebrex] Allergy Itching Verified 06/10/23 14:56 ciprofloxacin [From Cipro] Allergy Swelling Verified 06/10/23 14:56 ciprofloxacin HCl Allergy Swelling Verified 06/10/23 14:56 [From Cipro] codeine Allergy Hives Verified 06/10/23 14:56 ibuprofen Allergy Hives Verified 06/10/23 14:56 naproxen Allergy Hives Verified 06/10/23 14:56 Penicillins Allergy Hives Verified 08/17/23 14:56 tramadol HCl [From Ultram] Allergy Hives Verified 06/10/23 14:56 ketorolac [From Toradol] AdvReac Swelling Verified 06/10/23 14:56 Family History Other CVA (cerebral vascular accident) Cancer Diabetes Myocardial infarction Surgical History H/O: hysterectomy History of cholecystectomy Hx of section S/P trigger finger release Social History household members: other details: currently living in a NH for therapy for chronic back pain housing: [facility] Smoking Status: Former smoker Tobacco: How many years used: 46 how long ago did patient quit smoking: She quit smoking in August or Septemberof 2020. She started smoking at 14 alcohol intake: never substance use type: other details: has a hx of chronic opioid use ROS ROS ED Constitutional Constitutional ED: Denies chills or fever(s) Eyes Eyes: Denies change in vision or discharge from eye(s) ENT ENT ED: Denies discharge from eye(s), rhinorrhea or sore throat Cardiovascular Cardiovascular: Reports chest pain; Denies palpitations Respiratory/Chest Respiratory/Chest: Denies cough or dyspnea Gastrointestinal Gastrointestinal: Reports diarrhea; Denies abdominal pain, nausea or vomiting Genitourinary Genitourinary ED: Denies dysuria Musculoskeletal Musculoskeletal: Reports extremity pain; Denies back pain Integumentary Denies Abrasions or rash Neurologic Neurologic: Denies headache(s) or weakness Psychiatric Psychiatric: Denies anxiety or depression Allergic/Immunologic Allergic/Immunologic ED: Denies lip swelling or urticaria EXAM Physical Exam Const Vital Signs: 01/01/24 18:32 01/01/24 18:36 01/01/24 18:43 Temperature 97.9 F Temperature Source Oral Pulse Rate 94 Respiratory Rate 16 Respiratory Effort Non-Labored Blood Pressure 139/76 H Blood Pressure Mean 97 Pulse Ox 97 97 Oxygen Delivery Method Room Air Room Air 01/01/24 19:32 01/01/24 20:00 01/01/24 21:00 Temperature Temperature Source Pulse Rate 85 87 84 Respiratory Rate 18 19 H 16 Respiratory Effort Blood Pressure 145/61 H 137/56 H 162/80 H Blood Pressure Mean 89 83 107 Pulse Ox 97 96 99 Oxygen Delivery Method Room Air Room Air Room Air Positive well nourished and well developed General Appearance ED: well developed HEENT Reports moist mucous membranes Eyes EOMs intact bilaterally Chest Wall inspection of chest normal and palpation of chest normal Resp normal respiratory effort and clear to auscultation bilaterally Cardio regular rate and regular rhythm GI soft to palpation and non-tender Extremity normal to inspection Extremity Narrative: Strong distal pulses to all extremities. 2+ edema to her left foot. Good rangeof motion. Neuro Neuro Narrative: Patient reports decree sensation to light touch in the bilateral lower extremities. Psych mental status grossly normal Heart Score History: Moderately Suspicious ECG: Normal Age: >45 - <65 years Risk Factors: >/= 3 Risk Factors or History of CAD Troponin: </= Normal Limit Score: 4 MDM MDM MDM Narrative Medical decision making narrative: Patient placed on front desk monitor. IV line initiated. EKG obtained to evaluatefor cardiac arrhythmia/ischemia. Chest x-ray obtained to evaluate for acute lung pathology, cardiac size, or mediastinal abnormality. Labwork obtained to evaluate for leukocytosis, anemia, and electrolyte derangement. Lab Data Attestation: I reviewed the patient's lab results. Labs: Laboratory Results - last 24 hr 01/01/24 01/01/24 18:43 21:03 WBC 10.0 RBC 3.91 L Hgb 11.2 L Hct 35.0 L MCV 89.5 MCH 28.6 MCHC 32.0 RDW Std Deviation 43.3 RDW Coeff of Anisa 13.3 Plt Count 309 MPV 9.4 Immature Gran % (Auto) 0.900 Neut % (Auto) 66.7 Lymph % (Auto) 26.5 [place] % (Auto) 4.7 Eos % (Auto) 0.8 Baso % (Auto) 0.4 Absolute Neuts (auto) 6.7 Absolute Lymphs (auto) 2.66 Nucleated RBC % 0 D-Dimer Quant (PE/DVT) 1.83 H* Sodium 134 L Potassium 4.7 Chloride 102 Carbon Dioxide 27.0 Anion Gap 5 BUN 28 H Creatinine 1.38 H Estim Creat Clear Calc 39.76 Est GFR (MDRD) Af Amer 50 L Est GFR (MDRD) Non-Af 41 L BUN/Creatinine Ratio 20.3 H Glucose 405 H Calcium 9.1 Troponin I High Sens 15 17 Radiography Chest X-Ray - ED: 1 View, Read by ED Physician, Normal, Heart, Lungs and Mediastinum Diagnostic Testing: Clinical Impression(s) from Imaging Studies Chest CTA 01/01/24 19:21 IMPRESSION: Positive for bilateral segmental pulmonary emboli. No right heart strain. Electronically Signed: Anam Zimmer MD at 22:04 EST , EKG Initial EKG: Attestation: I personally reviewed and interpreted this EKG as follows: Interpretation: Sinus Rhythm (Sinus at 90 with no acute ischemia.) Treatment and Re-Evaluation :: Patient was treated with morphine and Zofran here for pain. CBC was normal white count at 10.0 with a hemoglobin 11.2. Chemistry studies reveal a BUN of 28 and creatinine 1.38. This is consistent with her baseline. D-dimer is elevated at 1.83. Troponin values are obtained and are 15 and 17 on 2-hour repeat. Portable chest x-ray per my interpretation reveals no evidence of acuteabnormality. EKG is sinus rhythm with no evidence of ischemia. Given the patient's elevated D-dimer she was sent for CTA of the chest. Per my interpretation patient had evidence of bilateral PEs and she was given a dose ofLovenox. I did later receive a phone call from radiologist. They do confirm bilateral pulmonary emboli with no evidence of right heart strain. I will speakwith hospitalist regarding observation. Discharge Plan Triage Chief Complaint: Chest Pain ED Provider: Raisa Mc Dx/Rx/DC Orders Clinical Impression: Pulmonary emboli Prescriptions: No Action levothyroxine 175 mcg capsule 175 mcg PO DAILY pantoprazole 40 mg tablet,delayed release (DR/EC) 40 mg PO DAILY ranolazine 500 mg tablet extended release 12 hr 500 mg PO BID Qty: 60 11RF midodrine 10 mg tablet 10 mg PO BID rizatriptan 10 tablet 10 mg PO PRN Patient Comments: metoprolol succinate 25 mg Tablet Extended Release 24 Hr 25 mg PO DAILY Qty: 30 2RF atorvastatin 40 mg tablet 40 mg PO QHS Qty: 30 2RF quetiapine 25 mg tablet 37.5 mg PO QHS lorazepam 0.5 mg tablet 0.5 mg PO Q12H fenofibrate 50 mg Capsule 50 mg PO QHS acetaminophen 325 mg Tablet 650 mg PO Q6H PRN PRN (Reason: Pain 1-10 Or Fever >100.7) Qty: 0 0RF insulin glargine-yfgn 100 unit/mL (3 mL) Insulin Pen 15 unit subcut QHS Qty: 0 0RF insulin glargine-yfgn 100 unit/mL (3 mL) Insulin Pen 15 unit subcut BREAKFAST Qty: 0 0RF melatonin 3 mg Tablet 3 mg PO QHS PRN PRN (Reason: Insomnia) Qty: 0 0RF potassium chloride 20 mEq Tablet,Er Particles/Crystals 20 meq PO 1XD Qty: 0 0RF insulin lispro [Humalog KwikPen Insulin] 100 unit/mL Insulin Pen 5 unit subcut BREAKFAST Qty: 0 0RF insulin lispro [Humalog KwikPen Insulin] 100 unit/mL Insulin Pen 5 unit subcut DINNER Qty: 0 0RF insulin lispro [Humalog KwikPen Insulin] 100 unit/mL Insulin Pen 5 unit subcut LUNCH Qty: 0 0RF Primary Care Provider: Jarred Lopez Referrals: Jarred Lopez MD [Primary Care Provider] - Disposition Disposition: Acute Care Hospital [facility] What to do if you have Problems For any increased pain, shortness of breath, bleeding, nausea or vomiting, chestpain, or any unexpected problems, contact your Primary Care Provider. Call [facility] ([phone]) or report to the closest Emergency Room. Call 911 if necessary. 01/01/242257 <Electronically signed by Raisa Mc MD> Cosigner Signature (if applicable): CC: Dr. Jarred Lopez MD ~ Signed [facility] Work Phone: [phone]) [phone] Discharge summary Author Raisa Mc [facility] January 01, 2024 10:58pm Note Date/Time January 01, 2024 6:48 pm [facility] Medical Records Department [address] [place] [address] Emergency Department Summary 01/01/24 MR#: [id number] Acct: [id number] Name: TERRANCE BRAR #:[id number] : 1965 58 From: Raisa cM MD PCP: Dr. Jarred Lopez MD Status :REG ER Location: ED HPI History of Present Illness Chief Complaint: Chest Pain Informant: patient Onset/Context/Timing Onset: Hours Activity at onset: gradual Narrative Narrative: Patient present secondary to chest pain with radiation to her left arm. She states pain started about an hour and a half prior to arrival she describes it as sharp in nature. He is in the left side the chest, goes down her left arm, and into her left back. She was given aspirin and 1 nitro with EMS and states pain improved from a 10 to a 6. She also complains of swelling in her left footthat has been ongoing for the past several days. [facility] Medical History Carpal tunnel syndrome Chronic back pain CKD (chronic kidney disease) stage 3, GFR 30-59 ml/min Depression Diabetes Difficulty in walking, not elsewhere classified Elevated troponin Essential hypertension Fatigue Former smoker History of left heart catheterization (LHC) (~05/21/22) HTN (hypertension) Hyperlipidemia Hypokalemia Hypothyroidism Intervertebral disc disorder with radiculopathy of lumbar region Kidney stones Migraines Normochromic normocytic anemia Obesity (BMI 35.0-39.9 without comorbidity) Opiate abuse, continuous Orthostatic hypotension Parathyroid disease Stomach ulcer Thyroid disease Type II diabetes mellitus, uncontrolled Home Medications rizatriptan 10 mg tablet 10 mg PO PRN Migraine Symptoms 12/27/17 [History Last Taken 01/01/24] atorvastatin 40 mg tablet 40 mg PO QHS #30 tabs 05/21/22 [Rx Last Taken 12/31/23] metoprolol succinate 25 mg tablet,extended release 24 hr 25 mg PO DAILY #30 tabs05/21/22 [Rx Last Taken 01/01/24] levothyroxine 175 mcg capsule 175 mcg PO DAILY 06/12/22 [History Last Taken 01/01/24] pantoprazole 40 mg tablet,delayed release 40 mg PO DAILY 06/12/22 [History Last Taken 01/01/24] ranolazine 500 mg tablet,extended release,12 hr 500 mg PO BID #60 tabs 06/12/22 [Rx Last Taken 01/01/24] midodrine 10 mg tablet 10 mg PO BID 09/09/22 [History Last Taken 01/01/24] fenofibrate 50 mg capsule 50 mg PO QHS 01/29/23 [History Last Taken 12/31/23] lorazepam 0.5 mg tablet 0.5 mg PO Q12H anxeity 01/29/23 [History Last Taken 12/31/23] quetiapine 25 mg tablet 37.5 mg PO QHS 01/29/23 [History Last Taken 11/15/23] acetaminophen 325 mg tablet 650 mg (2 x 325 mg) PO Q6H PRN PRN Pain 1-10 Or Fever >100.7 #0 tabs 11/24/23 [Rx Last Taken Unknown] insulin glargine-yfgn 100 unit/mL (3 mL) subcutaneous pen 15 unit (0.15 mL) subcut BREAKFAST #0 mL 11/24/23 [Rx Last Taken 01/01/24] insulin glargine-yfgn 100 unit/mL (3 mL) subcutaneous pen 15 unit (0.15 mL) subcut QHS #0 mL 11/24/23 [Rx Last Taken 12/31/23] insulin lispro 100 unit/mL subcutaneous pen (Humalog KwikPen (U-100) Insulin) 5 unit (0.05 mL) subcut BREAKFAST #0 mL 11/24/23 [Rx Last Taken 01/01/24] insulin lispro 100 unit/mL subcutaneous pen (Humalog KwikPen (U-100) Insulin) 5 unit (0.05 mL) subcut DINNER #0 mL 11/24/23 [Rx Last Taken 12/31/23] insulin lispro 100 unit/mL subcutaneous pen (Humalog KwikPen (U-100) Insulin) 5 unit (0.05 mL) subcut LUNCH #0 mL 11/24/23 [Rx Last Taken 01/01/24] melatonin 3 mg tablet 3 mg PO QHS PRN PRN Insomnia #0 tabs 11/24/23 [Rx Last Taken 12/31/23] potassium chloride 20 mEq tablet,extended release(part/cryst) 20 meq PO 1XD #0 tabs 11/24/23 [Rx Last Taken 01/01/24] Allergy/AdvReac Type Severity Reaction Status Date / Time celecoxib [From Celebrex] Allergy Itching Verified 06/10/23 14:56 ciprofloxacin [From Cipro] Allergy Swelling Verified 06/10/23 14:56 ciprofloxacin HCl Allergy Swelling Verified 06/10/23 14:56 [From Cipro] codeine Allergy Hives Verified 06/10/23 14:56 ibuprofen Allergy Hives Verified 06/10/23 14:56 naproxen Allergy Hives Verified 06/10/23 14:56 Penicillins Allergy Hives Verified 06/10/23 14:56 tramadol HCl [From Ultram] Allergy Hives Verified 06/10/23 14:56 ketorolac [From Toradol] AdvReac Swelling Verified 06/10/23 14:56 Family History Other CVA (cerebral vascular accident) Cancer Diabetes Myocardial infarction Surgical History H/O: hysterectomy History of cholecystectomy Hx of section S/P trigger finger release Social History household members: other details: currently living in a NH for therapy for chronic back pain housing[facility] Smoking Status: Former smoker Tobacco: How many years used: 46 how long ago did patient quit smoking: She quit smoking in August or Septemberof 2020. She started smoking at 14 alcohol intake: never substance use type: other details: has a hx of chronic opioid use ROS ROS ED Constitutional Constitutional ED: Denies chills or fever(s) Eyes Eyes: Denies change in vision or discharge from eye(s) ENT ENT ED: Denies discharge from eye(s), rhinorrhea or sore throat Cardiovascular Cardiovascular: Reports chest pain; Denies palpitations Respiratory/Chest Respiratory/Chest: Denies cough or dyspnea Gastrointestinal Gastrointestinal: Reports diarrhea; Denies abdominal pain, nausea or vomiting Genitourinary Genitourinary ED: Denies dysuria Musculoskeletal Musculoskeletal: Reports extremity pain; Denies back pain Integumentary Denies Abrasions or rash Neurologic Neurologic: Denies headache(s) or weakness Psychiatric Psychiatric: Denies anxiety or depression Allergic/Immunologic Allergic/Immunologic ED: Denies lip swelling or urticaria EXAM Physical Exam Const Vital Signs: 01/01/24 18:32 01/01/24 18:36 01/01/24 18:43 Temperature 97.9 F Temperature Source Oral Pulse Rate 94 Respiratory Rate 16 Respiratory Effort Non-Labored Blood Pressure 139/76 H Blood Pressure Mean 97 Pulse Ox 97 97 Oxygen Delivery Method Room Air Room Air 01/01/24 19:32 01/01/24 20:00 01/01/24 21:00 Temperature Temperature Source Pulse Rate 85 87 84 Respiratory Rate 18 19 H 16 Respiratory Effort Blood Pressure 145/61 H 137/56 H 162/80 H Blood Pressure Mean 89 83 107 Pulse Ox 97 96 99 Oxygen Delivery Method Room Air Room Air Room Air Positive well nourished and well developed General Appearance ED: well developed HEENT Reports moist mucous membranes Eyes EOMs intact bilaterally Chest Wall inspection of chest normal and palpation of chest normal Resp normal respiratory effort and clear to auscultation bilaterally Cardio regular rate and regular rhythm GI soft to palpation and non-tender Extremity normal to inspection Extremity Narrative: Strong distal pulses to all extremities. 2+ edema to her left foot. Good rangeof motion. Neuro Neuro Narrative: Patient reports decree sensation to light touch in the bilateral lower extremities. Psych mental status grossly normal Heart Score History: Moderately Suspicious ECG: Normal Age: >45 - <65 years Risk Factors: >/= 3 Risk Factors or History of CAD Troponin: </= Normal Limit Score: 4 MDM MDM MDM Narrative Medical decision making narrative: Patient placed on front desk monitor. IV line initiated. EKG obtained to evaluatefor cardiac arrhythmia/ischemia. Chest x-ray obtained to evaluate for acute lung pathology, cardiac size, or mediastinal abnormality. Labwork obtained to evaluate for leukocytosis, anemia, and electrolyte derangement. Lab Data Attestation: I reviewed the patient's lab results. Labs: Laboratory Results - last 24 hr 01/01/24 01/01/24 18:43 21:03 WBC 10.0 RBC 3.91 L Hgb 11.2 L Hct 35.0 L MCV 89.5 MCH 28.6 MCHC 32.0 RDW Std Deviation 43.3 RDW Coeff of Anisa 13.3 Plt Count 309 MPV 9.4 Immature Gran % (Auto) 0.900 Neut % (Auto) 66.7 Lymph % (Auto) 26.5 [place] % (Auto) 4.7 Eos % (Auto) 0.8 Baso % (Auto) 0.4 Absolute Neuts (auto) 6.7 Absolute Lymphs (auto) 2.66 Nucleated RBC % 0 D-Dimer Quant (PE/DVT) 1.83 H* Sodium 134 L Potassium 4.7 Chloride 102 Carbon Dioxide 27.0 Anion Gap 5 BUN 28 H Creatinine 1.38 H Estim Creat Clear Calc 39.76 Est GFR (MDRD) Af Amer 50 L Est GFR (MDRD) Non-Af 41 L BUN/Creatinine Ratio 20.3 H Glucose 405 H Calcium 9.1 Troponin I High Sens 15 17 Radiography Chest X-Ray - ED: 1 View, Read by ED Physician, Normal, Heart, Lungs and Mediastinum Diagnostic Testing: Clinical Impression(s) from Imaging Studies Chest CTA 01/01/24 19:21 IMPRESSION: Positive for bilateral segmental pulmonary emboli. No right heart strain. Electronically Signed: Anam Zimmer MD at 22:04 EST , EKG Initial EKG: Attestation: I personally reviewed and interpreted this EKG as follows: Interpretation: Sinus Rhythm (Sinus at 90 with no acute ischemia.) Treatment and Re-Evaluation :: Patient was treated with morphine and Zofran here for pain. CBC was normal white count at 10.0 with a hemoglobin 11.2. Chemistry studies reveal a BUN of 28 and creatinine 1.38. This is consistent with her baseline. D-dimer is elevated at 1.83. Troponin values are obtained and are 15 and 17 on 2-hour repeat. Portable chest x-ray per my interpretation reveals no evidence of acuteabnormality. EKG is sinus rhythm with no evidence of ischemia. Given the patient's elevated D-dimer she was sent for CTA of the chest. Per my interpretation patient had evidence of bilateral PEs and she was given a dose ofLovenox. I did later receive a phone call from radiologist. They do confirm bilateral pulmonary emboli with no evidence of right heart strain. I will speakwith hospitalist regarding observation. Discharge Plan Triage Chief Complaint: Chest Pain ED Provider: Raisa Mc Dx/Rx/DC Orders Clinical Impression: Pulmonary emboli Prescriptions: No Action levothyroxine 175 mcg capsule 175 mcg PO DAILY pantoprazole 40 mg tablet,delayed release (DR/EC) 40 mg PO DAILY ranolazine 500 mg tablet extended release 12 hr 500 mg PO BID Qty: 60 11RF midodrine 10 mg tablet 10 mg PO BID rizatriptan 10 tablet 10 mg PO PRN Patient Comments: metoprolol succinate 25 mg Tablet Extended Release 24 Hr 25 mg PO DAILY Qty: 30 2RF atorvastatin 40 mg tablet 40 mg PO QHS Qty: 30 2RF quetiapine 25 mg tablet 37.5 mg PO QHS lorazepam 0.5 mg tablet 0.5 mg PO Q12H fenofibrate 50 mg Capsule 50 mg PO QHS acetaminophen 325 mg Tablet 650 mg PO Q6H PRN PRN (Reason: Pain 1-10 Or Fever >100.7) Qty: 0 0RF insulin glargine-yfgn 100 unit/mL (3 mL) Insulin Pen 15 unit subcut QHS Qty: 0 0RF insulin glargine-yfgn 100 unit/mL (3 mL) Insulin Pen 15 unit subcut BREAKFAST Qty: 0 0RF melatonin 3 mg Tablet 3 mg PO QHS PRN PRN (Reason: Insomnia) Qty: 0 0RF potassium chloride 20 mEq Tablet,Er Particles/Crystals 20 meq PO 1XD Qty: 0 0RF insulin lispro [Humalog KwikPen Insulin] 100 unit/mL Insulin Pen 5 unit subcut BREAKFAST Qty: 0 0RF insulin lispro [Humalog KwikPen Insulin] 100 unit/mL Insulin Pen 5 unit subcut DINNER Qty: 0 0RF insulin lispro [Humalog KwikPen Insulin] 100 unit/mL Insulin Pen 5 unit subcut LUNCH Qty: 0 0RF Primary Care Provider: Jarred Lopez Referrals: Jarred Lopez MD [Primary Care Provider] - Disposition Disposition: Acute Care Hospital [facility] What to do if you have Problems For any increased pain, shortness of breath, bleeding, nausea or vomiting, chestpain, or any unexpected problems, contact your Primary Care Provider. Call [facility] ([phone]) or report to the closest Emergency Room. Call 911 if necessary. 01/01/24 2374 <Electronically signed by Raisa Mc MD> Cosigner Signature (if applicable): CC: Dr. Jarred Lopez MD ~ Signed [facility] Work Phone: [phone] 542-684811-27-2023 History of Present illness Narrative* Ariadna Kyle - 09/20/2023 8:48 AM EST Terrance Brar is identified through a medication adherence outreach initiative based on pharmacy claims data from [employer] (insurer) for Statin medication(s). Patient is reviewed [...] Left message Ariadna Kyle documented in this encounterLouis [facility]10-27-2023 History of Present illness Narrative* Sharonda Sanchez - 08/20/2023 4:22 PM EDT Terrance Brar is identified through a medication adherence outreach initiative based on pharmacy claims data from [employer] (insurer) for Non-insulin DM medication(s) and Statin [...] Both were out of refill Sharonda Sanchez Conference Services Manager documented in this encounterLouis Stokes [facility] Center10-25-2023 Miscellaneous Notes* Telephone Encounter - Mary Ellen Karimi LPN - 08/18/2023 4:53 PM EDT Spoke with pt and information listed below given. Pt verbalizes understanding. Mary Ellen Karimi LPN * Telephone Encounter - Sharonda Sanchez - 08/18/2023 4:10 PM EDT Patient reviewed for Population Health Medication Adherence [...] Provider Department Center 08/26/2023 1:40 PM 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 APRN.PRACTICE ARCHITECT [facility] Please review and refill if appropriate. Thank you. Sharonda Sanchez August 18, 2023 4:11 PM documented in this encounterLouis Stokes [facility] Center10-25-2023 History of Present illness Narrative* Irena Hood PSS - 08/18/2023 7:58 AM EDT POPULATION HEALTH NAVIGATION OUTREACH Action/FYI Pt due [...] Gap or Scheduling/Wellness visits Payer: Payor: [employer] / Plan: [employer] HMO / Product Type: HMO / Care [...] 18, 2023 7:58 AM documented in this encounterLouis Stokes [facility] Center08-31-2023 Miscellaneous Notes* Telephone Encounter - Anh Simms Ma - 06/24/2023 2:35 PM EDT Letter mailed to pt notifying her we've attempted to reach her by phone to assist in scheduling a hospital f/u. She's scheduled to see MARILEE in June. Pt also went back to ED on 06/10/23 per Triage note. Anh Simms Ma * Telephone Encounter - Shonda Valladares LPN - 06/22/2023 3:14 PM EDT Message left for patient to call office back. Shonda Valladares LPN * Telephone Encounter - Ana Ackerman Ma - 06/18/2023 12:33 PM EDT Message left for pt to call back. Ana Ackerman Ma * Telephone Encounter - Rachel Perea LPN - 06/07/2023 12:59 PM EDT Phoned patient and message left for her to return call to schedule ER follow up visit. documented in this encounterLouis Stokes [facility] Center08-17-2023 Miscellaneous Notes* Telephone Encounter - Miguel Ángel Santoyo LPN - 06/10/2023 1:50 PM EDT Pt notified of Dr Lopez's message. Pt verbalizes understanding. Advises that she will go to [facility] as instructed. Miguel Ángel Santoyo LPN * Telephone Encounter - Dwayne Lopez MD - 06/10/2023 1:38 PM EDT Recommend ER for disimpaction of hard stool in rectum and constipation x1 week. * Telephone Encounter - Mindi Temple RN - 06/10/2023 1:09 PM EDT Patient calling to say she is "very constipated". Has not had BM in one week. She feels hard stool in rectum but unable to pass. Has been straining x 2 days with blood on toilet tissue and in brief. She has already tried stool softener, Miralax and 10 ounces Magnesium Citrate one hour ago. She saybrianda was in [facility] on 06/04 with abdominal pain and received morphine. She states she has abdominal andrectal pain 9/10 mostly when she is straining [...] water/day 8. MEDICATIONS: Says she was in [facility] ER on 06/04 with abdominal pain [...] hemorrhoids, rectal surgery, rectal fissure Protocols used: [id number] documented in this encounterLouis Stokes [facility]08-13-2023 Discharge summary Author Raúl Alejo [facility] June 06, 2023 10:50pm Note Date/Time June 06, 2023 6: 00pm [facility] Medical Records Department [address] [place] [address] Emergency Department Summary 06/06/23 MR#: [id number] Acct: [id number] Name: TERRANCE BRAR Rep #:[id number] : 1965 57 From: Bronson Retana MD PCP: Dr. Jarred Lopez MD Status :[facility] ER Location: ED ADDENDUM by Dr. Raúl Alejo DO on 06/06/23 at 2250 Patient signed out to me recheck glucose prior to disposition. Per nursing recheck 327. No DKA on lab work. Discharged with outpatient follow-up. 06/06/23 2250<Electronically signed by Raúl Brooks> Cosigner Signature (if applicable): cc: Dr. Jarred Lopez MD ~* Signed HPI History of Present Illness Chief Complaint: General Illness Detail of Chief Complaint: Diffuse pain. Nausea. Informant: patient Onset/Context/Timing Onset: Days Context: Gradual Onset Timing: Continuous Current Severity: Mild Maximum Severity: Mild Narrative Narrative: 57-year-old female history of chronic kidney disease, diabetes. Seen here 2 days ago by myself. Had extensive work-up including CAT scan and labs. She hadhyponatremia at that time with sodium 127. Sugar was elevated 491 which was treated with IV fluids and insulin. She states that her legs hurt. She just does not feel well. Nauseated but no vomiting or diarrhea. No fever or dysuria. UA the other day was negative. CAT scan of her abdomen the other day was unremarkable chronic. Prior similar symptoms: Yes Recent Illness/Hospitalization: No PFSH PFSH Medical History Carpal tunnel syndrome Chronic back pain Chronic renal failure, stage 3a CKD (chronic kidney disease) stage 3, GFR 30-59 ml/min Contusion of great toe, right Contusion of knee Depression Depressive disorder Diabetes Difficulty in walking, not elsewhere classified Elevated troponin Essential hypertension Fatigue Former smoker History of left heart catheterization (LHC) (~05/21/22) HTN (hypertension) Hyperlipidemia Hypokalemia Hypothyroidism Infection of tooth Intervertebral disc disorder with radiculopathy of lumbar region Kidney disease Kidney stones Migraines Normochromic normocytic anemia Obesity (BMI 35.0-39.9 without comorbidity) Opiate abuse, continuous Orthostatic hypotension Pure hypercholesterolemia Renal insufficiency Stomach ulcer Thyroid disease Type II diabetes mellitus, uncontrolled Home Medications rizatriptan 10 mg tablet 10 mg PO PRN PRN Migraine Symptoms 12/27/17 [History Last Taken Unknown] pen needle,diabetic, disp unit 29 gauge x 1/2", remover and disposal unit #100 ea 06/23/21 [Rx Last Taken Unknown] acetaminophen 500 mg tablet 1,000 mg (2 x 500 mg) PO TID PRN pain #0 tabs 03/27/22 [Rx Last Taken 04/23/22 16:40] polyethylene glycol 3350 17 gram oral powder packet 17 g PO DAILY PRN PRN constipation #0 ea 03/27/22 [Rx Last Taken Unknown] sennosides 8.6 mg-docusate sodium 50 mg tablet (Stool Softener-Stimulant Laxative) 2 tab PO BID #0 tabs 03/27/22 [Rx Last Taken Unknown] aluminum-mag hydroxide-simethicone 400 mg-400 mg-40 mg/5 mL oral susp (Mylanta Maximum Strength) 15 ml PO Q4H PRN Stomach Upset 04/24/22 [History Last Taken 04/24/22] aspirin 81 mg tablet,delayed release (Constance Low Dose Aspirin) 81 mg PO DAILY #30tabs 05/21/22 [Rx Last Taken Unknown] atorvastatin 40 mg tablet 40 mg PO QHS #30 tabs 05/21/22 [Rx Last Taken Unknown] metoprolol succinate 25 mg tablet,extended release 24 hr 25 mg PO DAILY #30 tabs05/21/22 [Rx Last Taken Unknown] dextrose 40 % oral gel (Glutose-15) 15 g PO Q15M PRN Blood Sugar 06/12/22 [History Last Taken Unknown] levothyroxine 175 mcg capsule 175 mcg PO DAILY 06/12/22 [History Last Taken Unknown] lidocaine 4 % topical patch 2 patch topical DAILY Back Pain 06/12/22 [History Last Taken Unknown] pantoprazole 40 mg tablet,delayed release 40 mg PO DAILY 06/12/22 [History Last Taken Unknown] ranolazine 500 mg tablet,extended release,12 hr 500 mg PO BID #60 tabs 06/12/22 [Rx Last Taken Unknown] insulin glargine-yfgn 100 unit/mL (3 mL) subcutaneous pen 60 unit subcut QHS 09/09/22 [History Last Taken Unknown] midodrine 10 mg tablet 10 mg PO BID 09/09/22 [History Last Taken Unknown] mirtazapine 15 mg tablet 7.5 mg PO QHS 09/09/22 [History Last Taken Unknown] nitroglycerin 0.4 mg sublingual tablet 0.4 mg sublingual Q5-15M 09/09/22 [History Last Taken Unknown] ondansetron 4 mg disintegrating tablet 4 mg PO TID PRN nausea and vomiting #21 tabs 10/09/22 [Rx Last Taken Unknown] insulin lispro 100 unit/mL subcutaneous pen 15 unit subcut TID 11/05/22 [History Last Taken Unknown] dulaglutide 3 mg/0.5 mL subcutaneous pen injector (Trulicity) mg subcut MO 01/29/23 [History Last Taken Unknown] fenofibrate 50 mg capsule 50 mg PO QHS 01/29/23 [History Last Taken Unknown] insulin glargine 100 unit/mL (3 mL) subcutaneous pen (Lantus Solostar U-100 Insulin) 30 unit subcut DAILY 01/29/23 [History Last Taken Unknown] lorazepam 0.5 mg tablet 0.5 mg PO Q12H anxeity 01/29/23 [History Last Taken Unknown] quetiapine 25 mg tablet 37.5 mg PO QHS 01/29/23 [History Last Taken Unknown] gabapentin 300 mg capsule 600 mg PO BID 02/11/23 [History Last Taken Unknown] Allergy/AdvReac Type Severity Reaction Status Date / Time celecoxib [From Celebrex] Allergy Itching Verified 06/06/23 17:47 ciprofloxacin [From Cipro] Allergy Swelling Verified 06/06/23 17:47 ciprofloxacin HCl Allergy Swelling Verified 06/06/23 17:47 [From Cipro] codeine Allergy Hives Verified 06/06/23 17:47 ibuprofen Allergy Hives Verified 06/06/23 17:47 naproxen Allergy Hives Verified 06/06/23 17:47 Penicillins Allergy Hives Verified 06/06/23 17:47 tramadol HCl [From Ultram] Allergy Hives Verified 06/06/23 17:47 ketorolac [From Toradol] AdvReac Swelling Verified 06/06/23 17:47 Family History Other CVA (cerebral vascular accident) Cancer Diabetes Myocardial infarction Surgical History H/O: hysterectomy History of cholecystectomy Hx of section S/P trigger finger release Social History household members: other details: currently living in a NH for therapy for chronic back pain housing[facility] Smoking Status: Former smoker Tobacco: How many years used: 46 how long ago did patient quit smoking: She quit smoking in August or Septemberof 2020. She started smoking at 14 alcohol intake: never substance use type: other details: has a hx of chronic opioid use ROS ROS ED ROS Narrative Pain. Leg swelling bilaterally. Review of Systems ROS Unobtainable: Denies due to encephalopathy Constitutional Constitutional ED: Denies chills or fever(s) Eyes Eyes: Denies blurry vision ENT ENT ED: Denies ear pain Cardiovascular Cardiovascular: Denies chest pain Respiratory/Chest Respiratory/Chest: Denies cough or dyspnea Gastrointestinal Gastrointestinal: Reports abdominal pain and nausea; Denies constipation, diarrhea, melena or vomiting Genitourinary Genitourinary ED: Denies dysuria or hematuria Musculoskeletal Musculoskeletal: Denies arthralgias Integumentary Denies abscess Neurologic Neurologic: Denies headache(s) Psychiatric Psychiatric: Denies anxiety Endocrine Endocrinology: Denies cold intolerance Hematologic/Lymphatic Hematologic/Lymphatic: Reports none Allergic/Immunologic Allergic/Immunologic ED: Denies mouth swelling or tongue swelling EXAM Physical Exam Narrative Exam Narrative: 57-year-old female. Vital signs stable afebrile. She does not look septic or toxic she is no distress. She is emotionally upset and tearful. No one else present in room. H EENT exam unremarkable. Moist extremities. Lungs clear to auscultation bilaterally. Heart regular rhythm rate about 100 no murmur. Abdomen soft nondistended normal bowel sounds no peritoneal signs. No hernia ormass. No obstruction. Moving all 4 extremities. 1+ edema both lower extremities. Neurologically she is awake and alert with no focal motor deficits. Back nontender. Const Vital Signs: 06/06/23 17:48 06/06/23 20:09 Temperature 96.9 F L Temperature Source Temporal Pulse Rate 100 71 Respiratory Rate 20 H 16 Blood Pressure 158/96 H 178/97 H Blood Pressure Mean 116 124 Pulse Ox 99 97 Oxygen Delivery Method Room Air Room Air Positive well nourished and well developed; Negative for cachectic, contracturesor unkempt General Appearance ED: well developed and NAD; Negative for unkempt, cachectic, contractures, cyanotic, diaphoretic or pallor Nutritional Appearance: Negative for cachectic HEENT Reports moist mucous membranes Negative for trauma or tenderness Eyes PERRL and EOMs intact bilaterally General Eye ED: Negative for pale conjunctiva or scleral icterus Neck no lymphadenopathy, supple and no JVD General: Negative for tenderness Lymph Lymphatic: Negative for other Chest Wall inspection of chest normal and palpation of chest normal Chest: Negative for other Resp normal respiratory effort and clear to auscultation bilaterally Effort and Inspection: Negative for retractions Auscultation: Negative for rales, rhonchi or wheezes Cardio regular rate, regular rhythm, S1 normal heart sound, S2 normal heart sound and no murmurs GI normal to inspection, nondistended, normoactive bowel sounds, non-tender and non-distended Inspection: Negative for abdominal distention Auscultation: normoactive bowel sounds Palpation: soft; Negative for tender, guarding, mass or rebound tenderness present Back/Spine no CVA tenderness General Back: Negative for CVA tenderness Cervical Spine: Negative for cervical spine tenderness Thoracic Spine / Upper Back: Negative for thoracic spinal tenderness Extremity normal to inspection Extremity Narrative: Except trace to 1+ edema bilaterally. Calves are nontender without cords. General Extremety ED: Yes edema General Extremity: edema Neuro oriented x3 and CN's II-XII intact bilaterally Sensorium / Orientation: alert; Negative for orientation impaired, lethargic or stuporous Motor Exam: strength 5/5 throughout Psych Negative for mental status grossly normal Appearance: Negative for unkempt Attitude: No agitated Mood & Affect: depressed, anxious and tearful Skin no rashes or lesions noted, no wounds and skin turgor normal General Skin Exam: elasticity normal; Negative for jaundice or pallor Lesions: No lesion noted Rashes: No rashes noted Trauma: Negative for abrasion Wounds: Negative for wounds noted MDM MDM MDM Narrative Medical decision making narrative: 57-year-old female with diabetes. Complaining acute on chronic pain. Nausea. She was seen 2 days ago by myself and extensive work-up including CAT scan of her abdomen urinalysis basically was unremarkable except she had a hyponatremia with a sodium 127. Her blood sugar was elevated 491 which was treated with fluids and subcu insulin. Her UA and CAT scan were unremarkable. Today she will be given Zofran for nausea. She has multiple allergies to nonnarcotic pain meds. I do not think this warrants narcotic pain medication. Labs to be obtained I do not think she needs imaging. Repeat exam patient is doing well at 9:10 PM. She will be discharged home with outpatient follow-up. Watch her blood sugars closely. Repeat blood sugar at 927 was 442. She was given a second dose of nodular and subcu 10 units for a total of 24 between the 2 dosages. Blood sugar be rechecked at 1030 if it is coming down she will be discharged home. History & Record Review Discussion w/independent historian: Family Additional record(s) reviewed:: Prior inpatient record, Prior outpatient record,Prior ED visit and Prior labs Lab Data Attestation: I reviewed the patient's lab results. Lab results narrative: CBC unremarkable. White count of 6.4. H&H of 13 and 42. Platelets 233. Chemistries show a sodium 129 previously was 127 on yesterday. Gap of 12. BUN and creatinine 10 and 1.34. She has a history of renal insufficiency. Glucose elevated 554. Acetone is negative. Labs not significantly changed from yesterday and the sugar is more elevated. She is not in DKA. Blood sugar 434. Labs: Laboratory Results - last 24 hr 06/06/23 06/06/23 06/06/23 18:05 18:35 20:39 WBC 6.4 RBC 4.77 Hgb 13.7 Hct 42.6 MCV 89.3 MCH 28.7 MCHC 32.2 RDW Std Deviation 44.1 H RDW Coeff of Anisa 13.4 Plt Count 233 MPV 10.7 Immature Gran % (Auto) 0.500 Neut % (Auto) 50.5 Lymph % (Auto) 44.0 H [place] % (Auto) 3.3 Eos % (Auto) 0.9 Baso % (Auto) 0.8 Absolute Neuts (auto) 3.2 Absolute Lymphs (auto) 2.81 Nucleated RBC % 0 Sodium 129 L Potassium 3.6 Chloride 94 L Carbon Dioxide 23.0 Anion Gap 12 BUN 10 Creatinine 1.34 H Est GFR (MDRD) Af Amer 52 L Est GFR (MDRD) Non-Af 43 L BUN/Creatinine Ratio 7.5 L Glucose 554 H* Calcium 8.9 Acetone Level NEGATIVE POC Glucose 434 H Discharge Plan Triage Chief Complaint: General Illness ED Provider: Bronson Retana Dx/Rx/DC Orders Clinical Impression: Hyperglycemia due to diabetes mellitus, Chronic pain Instructions: ED Diabetic Hyperglycemia Prescriptions: No Action levothyroxine 175 mcg capsule 175 mcg PO DAILY pantoprazole 40 mg tablet,delayed release (DR/EC) 40 mg PO DAILY dextrose [Glutose-15] 40 % gel 15 g PO Q15M PRN (Reason: Blood Sugar) Rx Instructions: until symptoms of low blood sugar are controlled ranolazine 500 mg tablet extended release 12 hr 500 mg PO BID Qty: 60 11RF insulin glargine-yfgn 100 unit/mL (3 mL) insulin pen 60 unit subcut QHS mirtazapine 15 mg tablet 7.5 mg PO QHS nitroglycerin 0.4 mg tablet, sublingual 0.4 mg sublingual Q5-15M midodrine 10 mg tablet 10 mg PO BID rizatriptan 10 tablet 10 mg PO PRN PRN (Reason: Migraine Symptoms) Patient Comments: (DME) pen needle,diabetic, disp unit 29 gauge x 1/2" needle See Rx Instructions .ROUTE .MEDSUPPLY Qty: 100 0RF Rx Instructions: As directed acetaminophen 500 mg Tablet 1,000 mg PO TID PRN (Reason: pain) Qty: 0 0RF polyethylene glycol 3350 17 gram Powder In Packet 17 g PO DAILY PRN PRN (Reason: constipation) Qty: 0 0RF sennosides-docusate sodium [Stool Softener-Stimulant Laxat] 8.6-50 mg Tablet 2 tab PO BID Qty: 0 0RF alum-mag hydroxide-simeth [Mylanta Maximum Strength] 400-400-40 mg/5 mL Suspension 15 ml PO Q4H PRN (Reason: Stomach Upset) lidocaine 4 % adhesive patch,medicated 2 patch TOPICAL DAILY Patient Comments: PER CUSTODIAL MAR PT GETS 2 PATCHES APPLIED TO BACK IN THE AM AND REMOVED AFTER 12 HOURS IN THE PM. metoprolol succinate 25 mg Tablet Extended Release 24 Hr 25 mg PO DAILY Qty: 30 2RF atorvastatin 40 mg tablet 40 mg PO QHS Qty: 30 2RF aspirin [Constance Low Dose Aspirin] 81 mg tablet,delayed release (DR/EC) 81 mg PO DAILY Qty: 30 3RF ondansetron 4 mg tablet,disintegrating 4 mg PO TID PRN (Reason: nausea and vomiting) Qty: 21 0RF insulin lispro 100 unit/mL insulin pen 15 unit SUBCUT TID Rx Instructions: with meals gabapentin 300 mg capsule 600 mg PO BID quetiapine 25 mg tablet 37.5 mg PO QHS lorazepam 0.5 mg tablet 0.5 mg PO Q12H insulin glargine [Lantus Solostar U-100 Insulin] 100 unit/mL (3 mL) insulin pen 30 unit SUBCUT DAILY fenofibrate 50 mg Capsule 50 mg PO QHS Trulicity 3 mg/0.5 mL pen injector SUBCUT MO Primary Care Provider: Jarred Lopez Referrals: Jarred Lopez MD [Primary Care Provider] - As soon as possible Activity Restrictions/Additional Instructions: Watch her blood sugars very closely. Take your medications as prescribed. Recheck your blood sugar prior to going to bed tonight Call and follow-up your primary care physician this coming week. Disposition Disposition: Home, Self Care What to do if you have Problems For any increased pain, shortness of breath, bleeding, nausea or vomiting, chestpain, or any unexpected problems, contact your Primary Care Provider. Call [facility] ([phone]) or report to the closest Emergency Room. Call 911 if necessary. 06/06/232237 <Electronically signed by Bronson Retana MD> Cosigner Signature (if applicable): CC: Dr. Jarred Lopez MD ~ Signed [facility] Work Phone: [phone] 301-121208-11-2023 Discharge summary Author Bronson Retana [facility] June 04, 2023 9:29pm Note Date/Time June 04, 2023 5: 36pm [facility] Medical Records Department [address] [place] [address] Emergency Department Summary 06/04/23 MR#: [id number] Acct: [id number] Name: TERRANCE BRAR Rep #:[id number] : 1965 57 From: Bronson Retana MD PCP: Dr. Jarred Lopez MD Status :REG ER Location: ED HPI HPI - GI History of Present Illness Chief Complaint: Abd Pain Detail of Chief Complaint: Periumbilical abdominal pain with nausea since last night. Informant: patient Abdominal Pain/Flank Pain Onset: Today and Yesterday Context: Gradual Onset Timing: Continuous Quality: Aching Location: Diffuse Current Severity: Mild Worsened by: Nothing Relieved by: Nothing Nausea/Vomiting/Emesis GI Symptom: Positive for Nausea; Negative for Vomiting Onset: Today and Yesterday Severity: Mild Diarrhea/Melena/Hematochezia GI Symptom: Negative for Diarrhea, Melena or Hematochezia Associated Symptoms Associated Symptoms: Negative for Dysuria, Frequency, Hematuria or Urgency Narrative Narrative: 57-year-old female history of hypertension, diabetes prior and hysterectomy includes abdominal pain with associated nausea. No vomiting or diarrhea. No constipation or dysuria. No fever. Worse today. Came in for evaluation. Denies prior history. Prior similar symptoms: No Recent Illness/Hospitalization: No PFSH PFSH Medical History Carpal tunnel syndrome Chronic back pain Chronic renal failure, stage 3a CKD (chronic kidney disease) stage 3, GFR 30-59 ml/min Contusion of great toe, right Contusion of knee Depression Depressive disorder Diabetes Difficulty in walking, not elsewhere classified Elevated troponin Essential hypertension Fatigue Former smoker History of left heart catheterization (LHC) (~05/21/22) HTN (hypertension) Hyperlipidemia Hypokalemia Hypothyroidism Infection of tooth Intervertebral disc disorder with radiculopathy of lumbar region Kidney disease Kidney stones Migraines Normochromic normocytic anemia Obesity (BMI 35.0-39.9 without comorbidity) Opiate abuse, continuous Orthostatic hypotension Pure hypercholesterolemia Renal insufficiency Stomach ulcer Thyroid disease Type II diabetes mellitus, uncontrolled Home Medications rizatriptan 10 mg tablet 10 mg PO PRN PRN Migraine Symptoms 12/27/17 [History Last Taken Unknown] pen needle,diabetic, disp unit 29 gauge x 1/2", remover and disposal unit #100 ea 06/23/21 [Rx Last Taken Unknown] acetaminophen 500 mg tablet 1,000 mg (2 x 500 mg) PO TID PRN pain #0 tabs 03/27/22 [Rx Last Taken 04/23/22 16:40] polyethylene glycol 3350 17 gram oral powder packet 17 g PO DAILY PRN PRN constipation #0 ea 03/27/22 [Rx Last Taken Unknown] sennosides 8.6 mg-docusate sodium 50 mg tablet (Stool Softener-Stimulant Laxative) 2 tab PO BID #0 tabs 03/27/22 [Rx Last Taken Unknown] aluminum-mag hydroxide-simethicone 400 mg-400 mg-40 mg/5 mL oral susp (Mylanta Maximum Strength) 15 ml PO Q4H PRN Stomach Upset 04/24/22 [History Last Taken 04/24/22] aspirin 81 mg tablet,delayed release (Constance Low Dose Aspirin) 81 mg PO DAILY #30tabs 05/21/22 [Rx Last Taken Unknown] atorvastatin 40 mg tablet 40 mg PO QHS #30 tabs 05/21/22 [Rx Last Taken Unknown] metoprolol succinate 25 mg tablet,extended release 24 hr 25 mg PO DAILY #30 tabs05/21/22 [Rx Last Taken Unknown] dextrose 40 % oral gel (Glutose-15) 15 g PO Q15M PRN Blood Sugar 06/12/22 [History Last Taken Unknown] levothyroxine 175 mcg capsule 175 mcg PO DAILY 06/12/22 [History Last Taken Unknown] lidocaine 4 % topical patch 2 patch topical DAILY Back Pain 06/12/22 [History Last Taken Unknown] pantoprazole 40 mg tablet,delayed release 40 mg PO DAILY 06/12/22 [History Last Taken Unknown] ranolazine 500 mg tablet,extended release,12 hr 500 mg PO BID #60 tabs 06/12/22 [Rx Last Taken Unknown] insulin glargine-yfgn 100 unit/mL (3 mL) subcutaneous pen 60 unit subcut QHS 09/09/22 [History Last Taken Unknown] midodrine 10 mg tablet 10 mg PO BID 09/09/22 [History Last Taken Unknown] mirtazapine 15 mg tablet 7.5 mg PO QHS 09/09/22 [History Last Taken Unknown] nitroglycerin 0.4 mg sublingual tablet 0.4 mg sublingual Q5-15M 09/09/22 [History Last Taken Unknown] ondansetron 4 mg disintegrating tablet 4 mg PO TID PRN nausea and vomiting #21 tabs 10/09/22 [Rx Last Taken Unknown] insulin lispro 100 unit/mL subcutaneous pen 15 unit subcut TID 11/05/22 [History Last Taken Unknown] dulaglutide 3 mg/0.5 mL subcutaneous pen injector (Trulicity) mg subcut MO 01/29/23 [History Last Taken Unknown] fenofibrate 50 mg capsule 50 mg PO QHS 01/29/23 [History Last Taken Unknown] insulin glargine 100 unit/mL (3 mL) subcutaneous pen (Lantus Solostar U-100 Insulin) 30 unit subcut DAILY 01/29/23 [History Last Taken Unknown] lorazepam 0.5 mg tablet 0.5 mg PO Q12H anxeity 01/29/23 [History Last Taken Unknown] quetiapine 25 mg tablet 37.5 mg PO QHS 01/29/23 [History Last Taken Unknown] gabapentin 300 mg capsule 600 mg PO BID 02/11/23 [History Last Taken Unknown] Allergy/AdvReac Type Severity Reaction Status Date / Time celecoxib [From Celebrex] Allergy Itching Verified 06/04/23 13:51 ciprofloxacin [From Cipro] Allergy Swelling Verified 06/04/23 13:51 ciprofloxacin HCl Allergy Swelling Verified 06/04/23 13:51 [From Cipro] codeine Allergy Hives Verified 06/04/23 13:51 ibuprofen Allergy Hives Verified 06/04/23 13:51 naproxen Allergy Hives Verified 06/04/23 13:51 Penicillins Allergy Hives Verified 06/04/23 13:51 tramadol HCl [From Ultram] Allergy Hives Verified 06/04/23 13:51 ketorolac [From Toradol] AdvReac Swelling Verified 06/04/23 13:51 Family History Other CVA (cerebral vascular accident) Cancer Diabetes Myocardial infarction Surgical History H/O: hysterectomy History of cholecystectomy Hx of section S/P trigger finger release Social History household members: other details: currently living in a NH for therapy for chronic back pain housing: [facility] Smoking Status: Former smoker Tobacco: How many years used: 46 how long ago did patient quit smoking: She quit smoking in August or Septemberof 2020. She started smoking at 14 alcohol intake: never substance use type: other details: has a hx of chronic opioid use ROS ROS ED ROS Narrative Abdominal pain Review of Systems ROS Unobtainable: Denies due to encephalopathy Constitutional Constitutional ED: Denies chills or fever(s) ENT ENT ED: Denies ear pain Cardiovascular Cardiovascular: Denies chest pain Respiratory/Chest Respiratory/Chest: Denies cough or dyspnea Gastrointestinal Gastrointestinal: Reports abdominal pain and nausea; Denies constipation, diarrhea, melena or vomiting Genitourinary Genitourinary ED: Denies dysuria or hematuria Musculoskeletal Musculoskeletal: Denies arthralgias Integumentary Denies abscess Neurologic Neurologic: Denies headache(s) Psychiatric Psychiatric: Denies anxiety Endocrine Endocrinology: Denies polydipsia Hematologic/Lymphatic Hematologic/Lymphatic: Denies easy bleeding Allergic/Immunologic Allergic/Immunologic ED: Denies mouth swelling EXAM Physical Exam Narrative Exam Narrative: 57-year-old female vital signs stable afebrile does not look septic toxic. No distress. H EENT exam unremarkable. Neck nontender. Lungs clear to auscultation bilateral. Heart regular rhythm no murmur. Abdomen soft nondistended normal bowel sounds no peritoneal signs. Diffusely tender primarily periumbilically. Not specifically over the right upper quadrant or the McBurney's point. No obvious hernia or mass. No pulsatile mass. No movingall 4 extremities. 1+ pitting edema both lower extremities. Neurologically sheis awake alert with no focal motor deficits. Const Vital Signs: 06/04/23 13:49 06/04/23 19:27 Temperature 96.6 F L Temperature Source Temporal Pulse Rate 87 71 Respiratory Rate 18 18 Blood Pressure 147/86 H 146/74 H Blood Pressure Mean 106 98 Pulse Ox 100 94 Oxygen Delivery Method Room Air Room Air Positive well nourished and well developed; Negative for cachectic, contracturesor unkempt General Appearance ED: well developed and NAD; Negative for unkempt, cachectic, contractures or pallor Nutritional Appearance: Negative for cachectic HEENT Reports moist mucous membranes; Denies dry mucous membranes normocephalic and atraumatic; Negative for trauma Mouth ED: No dry mucous membranes Mouth: No dry mucous membranes Eyes PERRL and EOMs intact bilaterally General Eye ED: Negative for pale conjunctiva or scleral icterus Neck no lymphadenopathy, supple and no JVD General: Negative for tenderness Carotids: Negative for other Lymph Lymphatic: Negative for other Resp normal respiratory effort and clear to auscultation bilaterally Effort and Inspection: Negative for respiratory distress Auscultation: Negative for rales, rhonchi or wheezes Cardio regular rate, regular rhythm, S1 normal heart sound, S2 normal heart sound and no murmurs Rate: Negative for bradycardia or tachycardic Rhythm: Negative for abnormal rhythm GI non-distended and no masses; Negative for non-tender Inspection: Negative for abdominal distention Auscultation: normoactive bowel sounds Palpation: tender; Negative for guarding, rigid, hepatomegaly, splenomegaly, hernia, mass, pulsatile mass or rebound tenderness present Back/Spine no CVA tenderness General Back: Negative for CVA tenderness Cervical Spine: Negative for cervical spine tenderness Thoracic Spine / Upper Back: Negative for thoracic spinal tenderness Lumbar Spine / Lower Back: Negative for lumbar spinal tenderness Coccyx: Negative for other Extremity full ROM General Extremety ED: Yes edema; Negative for tenderness General Extremity: edema Neuro CN's II-XII intact bilaterally, moves all extremities and no sensory deficits noted Sensorium / Orientation: alert, oriented to person, oriented to place and oriented to time; Negative for orientation impaired, confused or lethargic Motor Exam: strength 5/5 throughout Psych mental status grossly normal and thought process normal Appearance: Negative for unkempt Attitude: No agitated Mood & Affect: Negative for depressed, anxious or tearful Skin no wounds General Skin Exam: Negative for jaundice or pallor Lesions: no lesions Rashes: no rashes Trauma: Negative for abrasion Nails: Negative for discolored MDM MDM MDM Narrative Medical decision making narrative: Six 57-year-old female diffuse abdominal pain with nausea. Prior cholecystectomy and hysterectomy. CAT scan is pending. Treated with IV morphine and Zofran for pain and nausea. She also has lower extremity edema. Repeat exam at 9:21 PM patient doing well. Abdomen benign. We went over her test results. Her blood sugar will be rechecked. She does not check it at home. Take her insulin and diabetic meds as prescribed. Follow-up with her doctor. Have her sodium rechecked. History & Record Review Discussion w/independent historian: Patient Additional record(s) reviewed:: Prior inpatient record, Prior outpatient record,Prior ED visit and Prior labs Lab Data Attestation: I reviewed the patient's lab results. Lab results narrative: CBC is unremarkable. White count 6.5. H&H 14 and 42. Platelets of 240. Chemistries show sodium 127 gap of 10. BUN and creatinine of 14 and 1.3. Liver enzymes unremarkable. Glucose 491. Lipase is 39. Urinalysis is negative. CAT scan of the abdomen pelvis showed no acute abnormality. Labs: Laboratory Results - last 24 hr 06/04/23 06/04/23 06/04/23 15:04 17:45 19:27 WBC 6.5 RBC 4.83 Hgb 14.0 Hct 42.0 MCV 87.0 MCH 29.0 MCHC 33.3 RDW Std Deviation 42.1 RDW Coeff of Anisa 13.3 Plt Count 240 MPV 10.7 Immature Gran % (Auto) 0.500 Neut % (Auto) 55.4 Lymph % (Auto) 39.6 [place] % (Auto) 3.2 Eos % (Auto) 0.5 Baso % (Auto) 0.8 Absolute Neuts (auto) 3.6 Absolute Lymphs (auto) 2.58 Nucleated RBC % 0 Sodium 127 L Potassium 3.8 Chloride 90 L Carbon Dioxide 27.0 Anion Gap 10 BUN 14 Creatinine 1.32 H Est GFR (MDRD) Af Amer 53 L Est GFR (MDRD) Non-Af 44 L BUN/Creatinine Ratio 10.6 Glucose 491 H* Calcium 9.1 Total Bilirubin 0.80 AST 21 ALT 29 Alkaline Phosphatase 78 Total Protein 7.6 Albumin 3.5 Globulin 4.1 Albumin/Globulin Ratio 0.9 Lipase 39 Urine Color Yellow Urine Clarity Clear Urine pH 6.5 Ur Specific [place] 1.010 Urine Protein 30 H Urine Glucose (UA) 1000 H Urine Ketones 15 H Urine Occult Blood 10 H Urine Nitrite Negative Urine Bilirubin Negative Urine Urobilinogen Normal Ur Leukocyte Esterase 25 H Urine RBC 0 SEEN Urine WBC 0-5 SEEN Ur Squamous Epith Cells 0-5 SEEN Urine Bacteria 0 SEEN Urine Mucus 0 SEEN Urine Yeast RARE POC Glucose 379 H Radiography Diagnostic Testing: Clinical Impression(s) from Imaging Studies Abdomen/Pelvis CT 06/04/23 17:28 IMPRESSION: Cannot exclude cystitis. Dilated common bile duct also present previously. Correlate with liver function tests. Electronically Signed: Lázaro Aparicio MD at 18:26 EDT , Discharge Plan Triage Chief Complaint: Abd Pain ED Provider: Bronson Retana Dx/Rx/DC Orders Clinical Impression: Hyperglycemia due to diabetes mellitus, History of diabetes mellitus, Abdominalpain, Acute hyponatremia Instructions: Abdominal Pain, ED Diabetic Hyperglycemia, ED Hyponatremia Prescriptions: No Action levothyroxine 175 mcg capsule 175 mcg PO DAILY pantoprazole 40 mg tablet,delayed release (DR/EC) 40 mg PO DAILY dextrose [Glutose-15] 40 % gel 15 g PO Q15M PRN (Reason: Blood Sugar) Rx Instructions: until symptoms of low blood sugar are controlled ranolazine 500 mg tablet extended release 12 hr 500 mg PO BID Qty: 60 11RF insulin glargine-yfgn 100 unit/mL (3 mL) insulin pen 60 unit subcut QHS mirtazapine 15 mg tablet 7.5 mg PO QHS nitroglycerin 0.4 mg tablet, sublingual 0.4 mg sublingual Q5-15M midodrine 10 mg tablet 10 mg PO BID rizatriptan 10 tablet 10 mg PO PRN PRN (Reason: Migraine Symptoms) Patient Comments: (DME) pen needle,diabetic, disp unit 29 gauge x 1/2" needle See Rx Instructions .ROUTE .MEDSUPPLY Qty: 100 0RF Rx Instructions: As directed acetaminophen 500 mg Tablet 1,000 mg PO TID PRN (Reason: pain) Qty: 0 0RF polyethylene glycol 3350 17 gram Powder In Packet 17 g PO DAILY PRN PRN (Reason: constipation) Qty: 0 0RF sennosides-docusate sodium [Stool Softener-Stimulant Laxat] 8.6-50 mg Tablet 2 tab PO BID Qty: 0 0RF alum-mag hydroxide-simeth [Mylanta Maximum Strength] 400-400-40 mg/5 mL Suspension 15 ml PO Q4H PRN (Reason: Stomach Upset) lidocaine 4 % adhesive patch,medicated 2 patch TOPICAL DAILY Patient Comments: PER CUSTODIAL MAR PT GETS 2 PATCHES APPLIED TO BACK IN THE AM AND REMOVED AFTER 12 HOURS IN THE PM. metoprolol succinate 25 mg Tablet Extended Release 24 Hr 25 mg PO DAILY Qty: 30 2RF atorvastatin 40 mg tablet 40 mg PO QHS Qty: 30 2RF aspirin [Constance Low Dose Aspirin] 81 mg tablet,delayed release (DR/EC) 81 mg PO DAILY Qty: 30 3RF ondansetron 4 mg tablet,disintegrating 4 mg PO TID PRN (Reason: nausea and vomiting) Qty: 21 0RF insulin lispro 100 unit/mL insulin pen 15 unit SUBCUT TID Rx Instructions: with meals gabapentin 300 mg capsule 600 mg PO BID quetiapine 25 mg tablet 37.5 mg PO QHS lorazepam 0.5 mg tablet 0.5 mg PO Q12H insulin glargine [Lantus Solostar U-100 Insulin] 100 unit/mL (3 mL) insulin pen 30 unit SUBCUT DAILY fenofibrate 50 mg Capsule 50 mg PO QHS Trulicity 3 mg/0.5 mL pen injector SUBCUT MO Primary Care Provider: Jarred Lopez Referrals: Jarred Lopez MD [Primary Care Provider] - 3-5 Days Activity Restrictions/Additional Instructions: No specific cause for your abdominal pain. Your sodium is low you may want to add some salt to your food. That should be rechecked in 1 to 2 weeks by your primary care physician. Watch her blood sugars closely. The one we just checked was 271. Follow-up with your doctor in 3 to 5 days. Return if feeling worse. Disposition Disposition: Home, Self Care What to do if you have Problems For any increased pain, shortness of breath, bleeding, nausea or vomiting, chestpain, or any unexpected problems, contact your Primary Care Provider. Call [facility] ([phone]) or report to the closest Emergency Room. Call 911 if necessary. 06/04/232127 <Electronically signed by Bronson Retana MD> Cosigner Signature (if applicable): CC: Dr. Jarred Lopez MD ~ Signed ADDENDUM by Dr. Bronson Retana MD on 06/04/23 at 2128 Blood sugar prior to discharge was 271 and improving. 06/04/232128<Electronically signed by Bronson Retana MD> Cosigner Signature (if applicable): cc: Dr. Jarred Lopez MD ~* Signed [facility] Work Phone: 1(116) 843-775308-11-2023 Hospital Discharge instructions Additional Instructions No specific cause for your abdominal pain. Your sodium is low you may want to add some salt to your food. That should be rechecked in 1 to 2 weeks by your primary care physician. Watch her blood sugars closely. The one we just checked was 271. Follow-up with your doctor in 3 to 5 days. Return if feeling worse.[facility] Work Phone: [phone]) 980-795607-31-2023 Miscellaneous Notes* Telephone Encounter - Lubna [place] [facility] - 05/24/2023 10:14 AM EDT Second attempt to reach patient by phone with no answer. Left additional VM to return call to office. As patient does not have , also sent letter to patients home address to have lab work completed. ALEX Harry * Telephone Encounter - Lubna [place] [facility] - 05/21/2023 10:14 AM EDT TC to patient with no answer. Left VM to return call to office. ALEX Harry * Telephone Encounter - Dwayne Lopez MD - 05/21/2023 9:00 AM EDT Rx sent. Patient needs to come in and get blood work done which was ordered on 04/07. * Telephone Encounter - Debra Greer - 05/20/2023 2:16 PM EDT Patient reviewed for Population Health Medication Adherence [...] Time Provider Department Center 07/09/2023 1:00 PM PodlogJesica sharma APRN.PRACTICE ARCHITECT [facility] Please review and refill if appropriate. Thank you. Debra Greer May 20, 2023 2:17 PM documented in this encounterLouis [facility] History of Present illness Narrative* Debra Greer - 05/20/2023 2:14 PM EDT Terrance Brar is identified through a medication adherence outreach initiative based on pharmacy claims data from [employer] (insurer) for Non-insulin DM medication(s) and Statin [...] refills remaining Debra Greer documented in this encounterLouis [facility]07-[facility]-2023 History of Present illness Narrative* Ariadna Kyle - 05/04/2023 2:13 PM EDT Terrance Brar is identified through a medication adherence outreach initiative based on pharmacy claims data from [employer] (insurer) for Non-insulin DM medication(s) and Statin [...] no answer Ariadna Kyle documented in this encounterLouis [facility]06-30-2023 History of Present illness Narrative* Vernon Degroot APRN.PRACTICE ARCHITECT - 04/23/2023 2:50 PM EDT Images from the original note were not [...] (HCC) 05/26/2018 Chronic lower back pain Dr. Basali Constipation 03/12/2015 Diabetes mellitus Excessive or frequent [...] daily. Take last dose no later than 6pb or within 4 hours of sleep pantoprazole [...] Test blood sugar(s) 3 times daily. Dx: OtherDM Code E11.49 Insulin: Yes. Pt uses Freestyle Lite Insulinx Meter blood sugar diagnostic (FREESTYLE INSULINX TEST STRIPS) test strip use to test blood sugar THREE TIMES DAILY Insulin Black, Disposable, (BD ULTRA-FINE BEN PEN NEEDLE) 32 gauge x 5/32" ndle Use one needle for each dose. [...] resp. rate 21, weight 81.1 kg (178 lb12.8 oz), last menstrual period 11/27/2008, SpO2 99 %. Physical Exam Constitutional: General: She is not in acute distress. Appearance: She is not toxic-appearing or diaphoretic. HENT: Head: Normocephalic and atraumatic. Nose: Nose normal. Mouth/Throat: Lips: [place]. Mouth: Mucous membranes are moist. Pharynx: Uvula [...] CAPSULE Vernon Degroot APRN.DEYANIRA documented in this encounterLouis [facility]06-15-2023 History of Present illness Narrative* Shital Menezes - 04/08/2023 1:51 PM EDT POPULATION HEALTH NAVIGATION OUTREACH Action/FYI Pt scheduled Patient Identified by Name and : YES, via phone Outreach Outcome/Action Spoke to patient / parent / legal guardian: Patient scheduled Did you use a PCP flex slot to schedule this appointment? No Reason for Outreach Care Gap or Scheduling/Wellness visits Payer: Payor: VINH [employer] - [employer] AND [employer] / Plan: VINH MEDIMARIANNA HMO / Product Type: HMO / Care [...] 08, 2023 1:51 PM documented in this encounterLouis Stokes Cleveland [facility] Center06-14-2023 Miscellaneous Notes* Telephone Encounter - Shonda Valladares LPN - 04/07/2023 1:21 PM EDT Patient here for appointment. * Telephone Encounter - Mariama Sandoval MA - 04/07/2023 12:00 PM EDT Patient scheduled for SNF discharge follow up today at 1320. Phone call to patient to remind her to bring all discharge information to appointment today. LM to call office. Mariama Sandoval MA documented in this encounterLouis Stokes Cleveland Va [facility] Center06-14-2023 History of Present illness Narrative* Dwayne Lopez MD - 04/07/2023 1:18 PM EDT Chief Complaint Patient presents with: SNF d/c follow up HPI Terrance Brar is a 57 year old female who presents here today for Above Complaints.. Patient had been a resident of [facility] since 03/2022 with discharge on 03/25. Admittedinitially for weakness and inability to walk. This [...] for handicap ced. Patient also evaluated at [facility] ED on 03/28 for constipation for [...] daily. Take last dose no later than 6pb or within 4 hours of sleep pantoprazole [...] Test blood sugar(s) 3 times daily. Dx: OtherDM Code E11.49 Insulin: Yes. Pt uses Freestyle Lite Insulinx Meter blood sugar diagnostic (FREESTYLE INSULINX TEST STRIPS) test strip use to test blood sugar THREE TIMES DAILY Insulin Black, Disposable, (BD ULTRA-FINE BEN PEN NEEDLE) 32 gauge x 5/32" ndle Use one needle for each dose. [...] distal pulses, not sensitive to monofilament bilaterally, andnails notable for Crumbly, Deformed, Hypertrophic, or Yellowish [...] daily. Continue home exercises. Red flags for re- assessment reviewed with patient in detail. - WALKER, [...] which included preparing to see the patient, [id number] patient care, completing clinical documentation, obtaining and/or reviewing separately obtained history, performing a medically appropriate examination, counseling and educating the pat ient/family/caregiver, and ordering medications, tests, or procedures. Dwayne Lopez MD documented in this encounterLouis Stokes Cleveland [facility] Center05-31-2023 History of Present illness Narrative* Dwayne Lopez MD - 03/24/2023 10:23 AM EDT Chief Complaint Patient presents with: Establish Care HPI Terrance Brar is a 57 year old female who presents here today for Above Complaints. Accompanied today by her Shan. Patient has been a resident of [facility] since 03/2022 and is planning on being discharged tomorrow. States that she was admitted initially for weakness and inability to walk. This was attributed to her uncontrolled DM. Required 11 months of PT. I have not received any records from [facility] as of yet. Patient has paperwork today for her medications, but there are contradictory orders on this. Patient complaining of globus sensation which started about 2 months ago. Associated with heartburnwithout dysphagia or odynophagia. She has Pantoprazole 40 mg daily on her med list, but is not sureif she is still getting this. Gets Tums [...] daily. Take last dose no later than 6pb or within 4 hours of sleep atorvastatin [...] Test blood sugar(s) 3 times daily. Dx: OtherDM Code E11.49 Insulin: Yes. Pt uses Freestyle Lite Insulinx Meter blood sugar diagnostic (FREESTYLE INSULINX TEST STRIPS) test strip use to test blood sugar THREE TIMES DAILY Insulin Black, Disposable, (BD ULTRA-FINE BEN PEN NEEDLE) 32 gauge x 5/32" ndle Use one needle for each dose. [...] care visit. [facility] along with labs obtained 1-2 weeks ago. Dwayne Lopez MD documented in this encounterLouis Stokes Cleveland [facility] Center05-02-2023 History of Present illness Narrative* Sharonda Sanchez - 02/23/2023 2:40 PM EDT Terrance Brar is identified through a medication adherence outreach initiative based on pharmacy claims data from [employer] (insurer) for Non-insulin DM medication(s) and Statin medication(s). Patient is reviewed 02/23/23 due to medication adherence concerns with the following medications (name, strength, sig): Atorvastatin 40mg every day, Trulicity 3/0.5m/ once weekly . Per data/report, last fill date and days supply: n/a Per reconcile dispense, last fill date and days supply: 01/22/23 Atorvastatin 30 day supply, 02/18/23Trulicity for 28 day supply Per call to pharmacy, last picked up date and days supply: n/a Contacted patient: No answer; left generic VM Outcome of review/outreach: (choose outcome source and status) - Filled within 7 days of Next fill date per reconcile dispense and per call to patient/caregiver Sharonda Sanchez Conference Services Manager documented in this encounterLouis Stokes Cleveland [facility] Center03-20-2023 History of Present illness Narrative* Aquilino Jha - 01/11/2023 11:50 AM EDT 01/11/23 attempt 3 - no answer * Aquilino Jha - 01/04/2023 1:55 PM EDT 01/04/23 attempt 2 - no answer LVM * Aquilino Jha - 01/01/2023 12:30 PM EST Pt chart reviewed as part of population health initiative focused on statin use in patients with diabetes (DM) or cardiovascular disease (CVD). Terrance Brar is identified through data from [employer] (insurer) as a potential candidate for statin [...] Triglycerides, Nonfasting (mg/dL) Date Value 09/18/2019 636 Patient contacted: 01/01/23 attempt 1 - no answer BERRY Jha * Donnell Burr RPh - 01/01/2023 12:29 PM EST Approving student documentation and outreach below. Donnell Burr RPh PharmD BCACP documented in this encounterLouis Stokes Cleveland Va Medical Center03-16-[address] Retana [facility] January 07, 2023 4:15pm Note Date/Time January 07, 2023 4:0 7pm [facility] Medical Records Department [address] [place] [address] Emergency Department Summary 01/07/23 MR#: [id number] Acct: [id number] Name: TERRANCE BRAR Rep #:[id number] : 1965 57 From: Bronson eRtana MD PCP: Dr. Lizet Linares MD Status:R EG ER Location: ED HPI History of Present Illness Chief Complaint: Flank Pain Informant: patient Onset/Context/Timing Onset: Today and Yesterday Context: Gradual Onset Timing: Continuous Quality: Dull and Aching Current Severity: Mild Maximum Severity: Mild Worsened by: improves with Nothing Relieved by: Nothing Associated Symptoms Associated Symptoms: Negative for Numbness, Tingling, Radiation to Left Leg, Fever, Abdominal Pain, Dysuria, Unable to Ambulate, Unable to Transfer, Urinary Retention, Urinary Incontinence, Constipation or Fecal Incontinence Narrative Narrative: 57-year-old female past medical history of chronic kidney disease, back pain butno prior back surgery, diabetes, hypertension, prior kidney stone. She has had a hysterectomy with salpingo-oophorectomy. And cholecystectomy. Complaining ofright flank pain. Was seen in this emergency department yesterday had a significant work-up including blood work which was unremarkable urinalysis whichwas negative for any signs of infection and a CAT scan which showed a right renal stone but no acute ureteral calculi and also bulging L4-5 disc. She denies any radiation to her legs. She denies any weakness. She denies any dysuria or hematuria. She was written for Jordan for pain they told her she could not take it because she has a codeine allergy so she has not been on pain meds and needs pain relief. Otherwise her symptoms have not changed. Prior similar symptoms: Yes Recent Illness/Hospitalization: No PFSH PFSH Medical History Carpal tunnel syndrome Chronic back pain Chronic renal failure, stage 3a CKD (chronic kidney disease) stage 3, GFR 30-59 ml/min Contusion of great toe, right Contusion of knee Depression Depressive disorder Diabetes Difficulty in walking, not elsewhere classified Elevated troponin Essential hypertension Fatigue Former smoker History of left heart catheterization (LHC) (~05/21/22) HTN (hypertension) Hyperlipidemia Hypokalemia Hypothyroidism Infection of tooth Intervertebral disc disorder with radiculopathy of lumbar region Kidney disease Kidney stones Migraines Normochromic normocytic anemia Obesity (BMI 35.0-39.9 without comorbidity) Opiate abuse, continuous Orthostatic hypotension Pure hypercholesterolemia Renal insufficiency Stomach ulcer Thyroid disease Type II diabetes mellitus, uncontrolled Home Medications rizatriptan 10 mg tablet 10 mg PO PRN PRN Migraine Symptoms 12/27/17 [History Last Taken Unknown] pen needle,diabetic, disp unit 29 gauge x 1/2", remover and disposal unit #100 ea 06/23/21 [Rx Last Taken Unknown] acetaminophen 500 mg tablet 1,000 mg PO TID PRN pain #0 tabs 03/27/22 [Rx Last Taken 04/23/22 16:40] polyethylene glycol 3350 17 gram oral powder packet 17 g PO DAILY PRN PRN constipation #0 ea 03/27/22 [Rx Last Taken Unknown] sennosides 8.6 mg-docusate sodium 50 mg tablet (Stool Softener-Stimulant Laxative) 2 tab PO BID #0 tabs 03/27/22 [Rx Last Taken Unknown] aluminum-mag hydroxide-simethicone 400 mg-400 mg-40 mg/5 mL oral susp (Mylanta Maximum Strength) 15 ml PO Q4H PRN Stomach Upset 04/24/22 [History Last Taken 04/24/22] aspirin 81 mg tablet,delayed release (Constance Low Dose Aspirin) 81 mg PO DAILY #30tabs 05/21/22 [Rx Last Taken Unknown] atorvastatin 40 mg tablet 40 mg PO QHS #30 tabs 05/21/22 [Rx Last Taken Unknown] metoprolol succinate 25 mg tablet,extended release 24 hr 25 mg PO DAILY #30 tabs05/21/22 [Rx Last Taken Unknown] dextrose 40 % oral gel (Glutose-15) 15 g PO Q15M PRN Blood Sugar 06/12/22 [History Last Taken Unknown] levothyroxine 175 mcg capsule 175 mcg PO DAILY 06/12/22 [History Last Taken Unknown] lidocaine 4 % topical patch 2 patch topical DAILY Back Pain 06/12/22 [History Last Taken Unknown] pantoprazole 40 mg tablet,delayed release 40 mg PO DAILY 06/12/22 [History Last Taken Unknown] ranolazine 500 mg tablet,extended release,12 hr 500 mg PO BID #60 tabs 06/12/22 [Rx Last Taken Unknown] insulin glargine-yfgn 100 unit/mL (3 mL) subcutaneous pen 60 unit subcut QHS 09/09/22 [History Last Taken Unknown] midodrine 10 mg tablet 10 mg PO BID 09/09/22 [History Last Taken Unknown] mirtazapine 15 mg tablet 7.5 mg PO QHS 09/09/22 [History Last Taken Unknown] nitroglycerin 0.4 mg sublingual tablet 0.4 mg sublingual Q5-15M 09/09/22 [History Last Taken Unknown] ondansetron 4 mg disintegrating tablet 4 mg PO TID PRN nausea and vomiting #21 tabs 10/09/22 [Rx Last Taken Unknown] gabapentin 100 mg capsule 100 mg PO DAILY 11/05/22 [History Last Taken Unknown] gabapentin 300 mg capsule 300 mg PO BID 11/05/22 [History Last Taken Unknown] insulin lispro 100 unit/mL subcutaneous pen 15 unit subcut TID 11/05/22 [History Last Taken Unknown] insulin lispro 100 unit/mL subcutaneous pen (Humalog KwikPen (U-100) Insulin) 14unit subcut DAILY 11/05/22 [History Last Taken Unknown] quetiapine 50 mg tablet 50 mg PO QHS 11/05/22 [History Last Taken Unknown] hydrocodone-acetaminophen 5-325mg 5mg-325mg 1 tab PO Q4H PRN PRN Pain 2 days #10TABLETS 01/06/23 [Rx Last Taken Unknown] oxycodone-acetaminophen 5 mg-325 mg tablet (Percocet) 1 tab PO Q4H PRN pain 4 days #12 tabs 01/07/23 [Rx Last Taken Unknown] Allergy/AdvReac Type Severity Reaction Status Date / Time celecoxib [From Celebrex] Allergy Itching Verified 01/07/23 15:19 ciprofloxacin [From Cipro] Allergy Swelling Verified 01/07/23 15:19 ciprofloxacin HCl Allergy Swelling Verified 01/07/23 15:19 [From Cipro] codeine Allergy Hives Verified 01/07/23 15:19 ibuprofen Allergy Hives Verified 01/07/23 15:19 naproxen Allergy Hives Verified 01/07/23 15:19 Penicillins Allergy Hives Verified 01/07/23 15:19 tramadol HCl [From Ultram] Allergy Hives Verified 01/07/23 15:19 ketorolac [From Toradol] AdvReac Swelling Verified 01/07/23 15:19 Family History Other CVA (cerebral vascular accident) Cancer Diabetes Myocardial infarction Surgical History H/O: hysterectomy Hx of section S/P trigger finger release Social History household members: other details: currently living in a NH for therapy for chronic back pain [facility] Smoking Status: Former smoker Tobacco: How many years used: 46 how long ago did patient quit smoking: She quit smoking in August or Septemberof 2020. She started smoking at 14 alcohol intake: never substance use type: other details: has a hx of chronic opioid use ROS ROS ED ROS Narrative Right flank pain. No dysuria. No hematuria. No fever. Review of Systems ROS Unobtainable: Denies due to encephalopathy Constitutional Constitutional ED: Denies chills or fever(s) Eyes Eyes: Denies blurry vision ENT ENT ED: Denies ear pain Cardiovascular Cardiovascular: Denies chest pain Respiratory/Chest Respiratory/Chest: Denies dyspnea Gastrointestinal Gastrointestinal: Reports diarrhea; Denies abdominal pain, constipation, melena,nausea or vomiting Genitourinary Genitourinary ED: Denies dysuria or hematuria Musculoskeletal Musculoskeletal: Reports back pain; Denies arthralgias Integumentary Denies abscess or Abrasions Neurologic Neurologic: Denies headache(s) Psychiatric Psychiatric: Denies anxiety Endocrine Endocrinology: Denies cold intolerance Hematologic/Lymphatic Hematologic/Lymphatic: Denies easy bleeding or easy bruising EXAM Physical Exam Narrative Exam Narrative: 57-year-old female no acute distress. Vital signs are stable afebrile. She does not look septic, toxic or in distress. H EENT exam unremarkable. Moist mucous membranes. Neck nontender. Lungs clear to auscultation bilaterally. Heart regular rate and rhythm rate about 90 no murmur. Chest wall and ribs nontender. No signs of trauma. Abdomen soft. Nondistended normal bowel sounds. No peritoneal signs. No hernia or mass. No pulsatile mass. Reproducible right flank tenderness. But no ecchymosis or bruising. No signs of trauma. Back and spine are nontender. Neurologically she is awake alert answering questions following commands. She is moving all 4 extremities. She has Austyn wrap's on both lower legs. Dorsi plantarflexion intact. Normal motor strength. Normal sensation. No cauda equina. Const Vital Signs: 01/07/23 15:17 Temperature 96 F L Temperature Source Temporal Pulse Rate 95 Respiratory Rate 18 Blood Pressure 143/70 H Blood Pressure Mean 94 Pulse Ox 99 Oxygen Delivery Method Room Air Positive well nourished and well developed; Negative for cachectic, contracturesor unkempt General Appearance ED: well developed and NAD; Negative for unkempt, cachectic or contractures Nutritional Appearance: Negative for cachectic HEENT Reports moist mucous membranes Negative for trauma or tenderness Eyes PERRL and EOMs intact bilaterally General Eye ED: Negative for pale conjunctiva or scleral icterus Neck no lymphadenopathy, supple and no JVD General: Negative for tenderness Thyroid: Negative for other Resp normal respiratory effort and clear to auscultation bilaterally Effort and Inspection: Negative for pain with movement Auscultation: Negative for rales, rhonchi or wheezes Cardio regular rhythm, S1 normal heart sound, S2 normal heart sound and no murmurs Palpation: Negative for palpable S3 Rate: Negative for bradycardia Rhythm: Negative for abnormal rhythm GI normal to inspection, nondistended, normoactive bowel sounds, soft to palpation,non-tender, non-distended and no masses Inspection: Negative for abdominal distention Palpation: Negative for tender or guarding Back/Spine normal to inspection and no thoracic nor lumbar tenderness Back/Spine Narrative: Mild reproducible right flank tenderness. No signs of trauma. No rib pain or crepitance. Extremity Negative for no clubbing, cyanosis or edema Extremity Narrative: Austyn wrap's both lower extremities. Neurovascular intact. Normal dorsi plantarflexion. No cauda equina. Neuro oriented x3 Sensorium / Orientation: alert; Negative for confused, lethargic or stuporous Motor Exam: strength 5/5 throughout Psych mental status grossly normal Appearance: Negative for unkempt Attitude: No agitated Mood & Affect: Negative for depressed Skin no rashes or lesions noted and no wounds General Skin Exam: Negative for jaundice Lesions: No lesion noted Rashes: No rashes noted Trauma: Negative for abrasion or puncture Wounds: Negative for wounds noted MDM MDM MDM Narrative Medical decision making narrative: 57-year-old female with right flank pain. Was seen evaluated yesterday. Had a negative work-up including labs, urinalysis and CAT scan except the CAT scan didshow bulging L4-5 disc. Showed no acute ureteral calculi. There was a stone inthe kidney. She had no signs of urinary tract infection. A prescription was written for Jordan which [facility]. She can take Percocet. She will get an IM injection here morphine. I reviewed her evaluation from yesterday. I do not think she needs any further testing. I will write her a prescription for 12 Percocet. Lab Data Attestation: I reviewed the patient's lab results. Lab results narrative: I reviewed the patient's test and CAT scan from yesterday. Discharge Plan Triage Chief Complaint: Flank Pain ED Provider: Bronson Retana Dx/Rx/DC Orders Clinical Impression: Acute right flank pain, History of diabetes mellitus, Degenerative disc disease Instructions: ED Back Pain (Acute or Chronic) Prescriptions: New oxycodone-acetaminophen [Percocet] 5-325 mg tablet 1 tab PO Q4H PRN (Reason: pain) 4 Days Qty: 12 0RF No Action levothyroxine 175 mcg capsule 175 mcg PO DAILY pantoprazole 40 mg tablet,delayed release (DR/EC) 40 mg PO DAILY dextrose [Glutose-15] 40 % gel 15 g PO Q15M PRN (Reason: Blood Sugar) Rx Instructions: until symptoms of low blood sugar are controlled ranolazine 500 mg tablet extended release 12 hr 500 mg PO BID Qty: 60 11RF insulin glargine-yfgn 100 unit/mL (3 mL) insulin pen 60 unit subcut QHS mirtazapine 15 mg tablet 7.5 mg PO QHS nitroglycerin 0.4 mg tablet, sublingual 0.4 mg sublingual Q5-15M midodrine 10 mg tablet 10 mg PO BID rizatriptan 10 tablet 10 mg PO PRN PRN (Reason: Migraine Symptoms) Label Comments: (DME) pen needle,diabetic, disp unit 29 gauge x 1/2" needle See Rx Instructions .ROUTE .MEDSUPPLY Qty: 100 0RF Rx Instructions: As directed acetaminophen 500 mg Tablet 1,000 mg PO TID PRN (Reason: pain) Qty: 0 0RF polyethylene glycol 3350 17 gram Powder In Packet 17 g PO DAILY PRN PRN (Reason: constipation) Qty: 0 0RF sennosides-docusate sodium [Stool Softener-Stimulant Laxat] 8.6-50 mg Tablet 2 tab PO BID Qty: 0 0RF alum-mag hydroxide-simeth [Mylanta Maximum Strength] 400-400-40 mg/5 mL Suspension 15 ml PO Q4H PRN (Reason: Stomach Upset) lidocaine 4 % adhesive patch,medicated 2 patch TOPICAL DAILY Label Comments: PER CUSTODIAL MAR PT GETS 2 PATCHES APPLIED TO BACK IN THE AM AND REMOVED AFTER 12 HOURS IN THE PM. metoprolol succinate 25 mg Tablet Extended Release 24 Hr 25 mg PO DAILY Qty: 30 2RF atorvastatin 40 mg tablet 40 mg PO QHS Qty: 30 2RF aspirin [Constance Low Dose Aspirin] 81 mg tablet,delayed release (DR/EC) 81 mg PO DAILY Qty: 30 3RF ondansetron 4 mg tablet,disintegrating 4 mg PO TID PRN (Reason: nausea and vomiting) Qty: 21 0RF gabapentin 300 mg capsule 300 mg PO BID gabapentin 100 mg capsule 100 mg PO DAILY Rx Instructions: @ 1300. insulin lispro 100 unit/mL insulin pen 15 unit SUBCUT TID Rx Instructions: with meals quetiapine 50 mg tablet 50 mg PO QHS insulin lispro [Humalog KwikPen Insulin] 100 unit/mL insulin pen 14 unit subcut DAILY Rx Instructions: @ 1645 hydrocodone-acetaminophen [hydrocodone-acetaminophen] 5-325 mg tablet 1 tab PO Q4H PRN PRN (Reason: Pain) 2 Days Qty: 10 0RF Primary Care Provider: Lizet Linares Referrals: Lizet Linares MD [Primary Care Provider] - 3-5 Days if not improving Activity Restrictions/Additional Instructions: Discard the Jordan prescription. Patient has used Percocet before in the past and should be fine with this for pain. Follow-up with your doctor if not improving. Disposition Disposition: Home, Self Care What to do if you have Problems For any increased pain, shortness of breath, bleeding, nausea or vomiting, chestpain, or any unexpected problems, contact your Primary Care Provider. Call [facility] ([phone]) or report to the closest Emergency Room. Call 911 if necessary. 01/07/23 1615 <Electronically signed by Bronson Retana MD> Cosigner Signature (if applicable): CC: Dr. Lizet Linares MD ~ Signed [facility] Work Phone: 1(336) 827-540707-02-2022 Evaluation note* Diagnosis Onset Date Resolution Status Chest pain acute Chronic renal failure, stage 3a acute Elevated troponin acute History of diabetes mellitus acute Hyperlipidemia acute Normochromic normocytic anemia acute Obesity (BMI 35.0-39.9 without comorbidity) acute Opiate abuse, continuous acu te Chronic back pain chronic Depressive disorder chronic [facility] Work Phone: 1(327) 952-821006-10-2022 History of Present illness Narrative* Shital Patel MA - 04/03/2022 12:54 PM EDT POPULATION HEALTH NAVIGATION OUTREACH Action/FYI Patient is on HCC list for below gaps and needs appt to address : 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
E11.69 - Hyperlipidemia associated with type 2 diabetes mellitus (HCC) - [id number] Last Billed 12/26/2019
E21.3 - Hyperparathyroidism (HCC) - [id number] Last Billed 09/18/2019
patient also due for [...] HCC or suspected condition Payer: Payor: [employer]H [employer] - [employer] / Plan: [employer] HMO / Product Type: HMO / Care [...] 03, 2022 12:55 PM documented in this encounterLouis Stokes [facility]09-29-2015 History of Past illness Narrative* [...] of this encounter (statuses as of 04/03/2022) [facility] of Past illness Narrative* [...] of this encounter (statuses as of 01/21/2023) [facility] of Past illness Narrative* [...] of this encounter (statuses as of 02/24/2023) [facility] of Past illness Narrative* [...] of this encounter (statuses as of 03/24/2023) [facility] of Past illness Narrative* [...] of this encounter (statuses as of 04/07/2023) [facility] of Past illness Narrative* [...] of this encounter (statuses as of 04/08/2023) [facility] of Past illness Narrative* [...] of this encounter (statuses as of 04/12/2023) [facility] of Past illness Narrative* [...] of this encounter (statuses as of 04/23/2023) [facility] of Past illness Narrative* [...] of this encounter (statuses as of 05/05/2023) [facility] of Past illness Narrative* [...] of this encounter (statuses as of 05/20/2023) [facility] of Past illness Narrative* [...] of this encounter (statuses as of 05/24/2023) [facility] of Past illness Narrative* [...] of this encounter (statuses as of 06/10/2023) [facility] of [facility] illness Narrative* [...] of this encounter (statuses as of 06/30/2023) [facility] Narrative* [...] of this encounter (statuses as of 08/18/2023) [facility] Narrative* [...] of this encounter (statuses as of 08/19/2023) [facility] Narrative* [...] of this encounter (statuses as of 08/20/2023) [facility] Narrative* [...] of this encounter (statuses as of 09/20/2023) [facility] of Past illness Narrative* [...] of this encounter (statuses as of 01/06/2024) [facility] of Past illness Narrative* [...] of this encounter (statuses as of 01/25/2024) [facility] [facility] of [facility] Narrative* [...] of this encounter (statuses as of 02/07/2024) [facility] History of Past illness Narrative* [...] of this encounter (statuses as of 02/10/2024) [facility] noteNo assessment information availableWMagruder [facility] Work Phone: Evaluation note* Diagnosis Onset Date Resolution Status 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 [facility] Work Phone: Evaluation note* Diagnosis Onset Date Resolution Status 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 HTN (hypertension) chronic Pure hypercholesterolemia ch ronic [facility] Work Phone: Evaluation note* Diagnosis Onset Date Resolution Status Chest pain resolved [facility] Work Phone: Evaluation note* Diagnosis Onset Date Resolution Status Chest pain resolved Diabetes acute Nonspecific chest pain acute Renal insufficiency acute [facility] Work Phone: Evaluation note* Diagnosis Onset Date Resolution Status Chest pain resolved Diabetes acute Hypothyroidism acute Nonspecific chest pain acute Renal insufficiency acute [facility] Work Phone: Evaluation note* Diagnosis Onset Date Resolution Status Hyperlipidemia acute Chest pain resolved Hypothyroidism acute Nonspecific chest pain resol shirley Atherosclerotic heart diseas e of [place] coronary artery without angina pectoris acute Chest pressure acute Dizziness acute Dyspnea acute Essential hypertension acute Hyperlipidemia acute [facility] Work Phone: Evaluation note* Diagnosis Onset Date Resolution Status Hypothyroidism acute Nonspecific chest pain resol shirley Atherosclerotic heart diseas e of [place] coronary artery without angina pectoris acute Chest pressure acute Dizziness acute Dyspnea acute Essential hypertension acute Hyperlipidemia acute [facility] Work Phone: Evaluation note* Diagnosis Onset Date Resolution Status Atherosclerotic heart diseas e of [place] coronary artery without angina pectoris acute Chest pressure acute Dizziness acute Dyspnea acute Essential hypertension acute Hyperlipidemia acute Atherosclerotic heart diseas e of [place] coronary artery without angina pectoris acute Bilateral lower extremity edema acute Essential hypertension acute Hyperlipidemia acute [facility] Work Phone: Evaluation note* Diagnosis Onset Date Resolution Status Atherosclerotic heart diseas e of [place] coronary artery without angina pectoris acute Bilateral lower extremity edema acute Essential hypertension acute Hyperlipidemia acute [facility] Work Phone: Evaluation note* Diagnosis Globus sensation- Primary Gastrointestinal malfunction arising from mental factors Gastroesophageal reflux disease, unspecified whether esophagitis present [facility] Diagnosis Onset Date Resolution Status Atherosclerotic heart diseas e of [place] coronary artery without angina pectoris acute Bilateral lower extremity edema acute Essential hypertension acute Hyperlipidemia acute Palpitations acute [facility] Work Phone: Evaluation note* Diagnosis Generalized weakness- Primary Other malaise [...] type dependence, continuous [facility] Diagnosis Toothache- Primary Unspecified disorder of the teeth and supporting structures documented in this encounter [facility] note* Diagnosis Onset Date Resolution Status Acute leg pain acute Diabetes mellitus with hyperglycemia acute Diarrhea acute Nausea acute [facility] Work Phone: Evaluation note* Diagnosis Onset Date Resolution Status Diarrhea acute Acute leg pain resolved Diabetes mellitus with hyperglycemia resolved Nausea resolved Pulmonary emboli acute [facility] Work Phone: Evaluation note* Diagnosis Onset Date Resolution Status Diarrhea acute Acute leg pain resolved Diabetes mellitus with hyperglycemia resolved Nausea resolved Chest pressure acute Pulmonary emboli acute [facility] Work Phone: Evaluation note* Diagnosis Onset Date Resolution Status Diarrhea acute Acute leg pain resolved Diabetes mellitus with hyperglycemia resolved Nausea resolved Chest pressure acute [facility] Work Phone: Evaluation note* Diagnosis Encounter for screening mammogram for breast cancer documented in this encounter [facility] note* Diagnosis Pre-operative examination- Primary Preoperative examination, unspecified Incisional hernia, without obstruction or gangrene Incisional hernia without mention of obstruction or gangrene Diabetes mellitus type 2 with neurological manifestations (HCC) Type II or unspecified type diabetes mellitus with neurological manifestations, not stated as uncontrolled Acquired hypothyroidism Unspecified hypothyroidism Hyperlipidemia associated with type 2 diabetes mellitus (HCC) Tobacco use disorder Gastric ulcer, unspecified chronicity, unspecified whether gastric ulcer hemorrhage or perforation present Calculus of kidney Hyperparathyroidism (HCC) Hyperparathyroidism, unspecified Class 1 obesity due to excess calories with body mass index (BMI) of 31.0 to 31.9 in adult, unspecified whether serious comorbidity present Encounter for screening mammogram for breast cancer documented in this encounter [facility] Author John Shaw [facility] November 19, 2023 11:02am Note Date/Time November 19, 2023 1 0:38am [facility] Medical Records Department [address] [place] [address] H&P Exam - Hospitalist 11/19/23 1037 MR#: [id number] Acct: [id number] Name: TERRANCE BRAR Rep #:[id number] : 1965 58 From: John Shaw MD PCP: Dr. Jarred Lopez MD Status :ADM HOMER Location: MS3 [id number] HPI - General General Date of Admission: 11/19/23 Date of Service: 11/19/23 Chief Complaint: Generalized weakness HPI Narrative TERRANCE BRAR, is a 58 F with multiple comorbidities including diabetes mellitus type 2 hypothyroidism who presents with generalized weakness. Patient symptoms started 4 days prior to her admission. She did have some nausea as well as abdominal discomfort which was later followed by diarrhea. Patient juststopped taking all her home medications. He states that she had just given up. She woke up on the morning of her presentation unable to walk was subsequently brought to the emergency department. Patient was found to be in acute kidney injury with hyperglycemia with glucose initially greater than 500. Was admittedto regular nursing floor for further management [facility] Medical History Carpal tunnel syndrome Chronic back pain CKD (chronic kidney disease) stage 3, GFR 30-59 ml/min Depression Diabetes Difficulty in walking, not elsewhere classified Elevated troponin Essential hypertension Fatigue Former smoker History of left heart catheterization (LHC) (~05/21/22) HTN (hypertension) Hyperlipidemia Hypokalemia Hypothyroidism Intervertebral disc disorder with radiculopathy of lumbar region Kidney stones Migraines Normochromic normocytic anemia Obesity (BMI 35.0-39.9 without comorbidity) Opiate abuse, continuous Orthostatic hypotension Stomach ulcer Thyroid disease Type II diabetes mellitus, uncontrolled Home Medications rizatriptan 10 mg tablet 10 mg PO PRN Migraine Symptoms 12/27/17 [History Last Taken 11/15/23] pen needle,diabetic, disp unit 29 gauge x 1/2", remover and disposal unit #100 ea 06/23/21 [Rx Last Taken Unknown] atorvastatin 40 mg tablet 40 mg PO QHS #30 tabs 05/21/22 [Rx Last Taken 11/15/23] metoprolol succinate 25 mg tablet,extended release 24 hr 25 mg PO DAILY #30 tabs05/21/22 [Rx Last Taken 11/15/23] dextrose 40 % oral gel (Glutose-15) 15 g PO Q15M PRN Blood Sugar 06/12/22 [History Last Taken Unknown] levothyroxine 175 mcg capsule 175 mcg PO DAILY 06/12/22 [History Last Taken 11/15/23] pantoprazole 40 mg tablet,delayed release 40 mg PO DAILY 06/12/22 [History Last Taken 11/15/23] ranolazine 500 mg tablet,extended release,12 hr 500 mg PO BID #60 tabs 06/12/22 [Rx Last Taken 11/15/23] midodrine 10 mg tablet 10 mg PO BID 09/09/22 [History Last Taken 11/15/23] mirtazapine 15 mg tablet 7.5 mg PO QHS 09/09/22 [History Last Taken 11/15/23] nitroglycerin 0.4 mg sublingual tablet 0.4 mg sublingual Q5-15M 09/09/22 [History Last Taken Unknown] insulin lispro 100 unit/mL subcutaneous pen 15 unit subcut TID 11/05/22 [History Last Taken 11/15/23] dulaglutide 3 mg/0.5 mL subcutaneous pen injector (Trulicity) 3 mg subcut MO 01/29/23 [History Last Taken Unknown] fenofibrate 50 mg capsule 50 mg PO QHS 01/29/23 [History Last Taken 11/15/23] insulin glargine 100 unit/mL (3 mL) subcutaneous pen (Lantus Solostar U-100 Insulin) 30 unit subcut QHS 01/29/23 [History Last Taken 11/15/23] lorazepam 0.5 mg tablet 0.5 mg PO Q12H anxeity 01/29/23 [History Last Taken 11/15/23] quetiapine 25 mg tablet 37.5 mg PO QHS 01/29/23 [History Last Taken 11/15/23] loperamide 2 mg capsule (Anti-Diarrheal (loperamide)) 2 mg PO Q6H PRN loose stool 11/19/23 [History Last Taken 11/15/23] Allergy/AdvReac Type Severity Reaction Status Date / Time celecoxib [From Celebrex] Allergy Itching Verified 06/10/23 14:56 ciprofloxacin [From Cipro] Allergy Swelling Verified 06/10/23 14:56 ciprofloxacin HCl Allergy Swelling Verified 06/10/23 14:56 [From Cipro] codeine Allergy Hives Verified 06/10/23 14:56 ibuprofen Allergy Hives Verified 06/10/23 14:56 naproxen Allergy Hives Verified 06/10/23 14:56 Penicillins Allergy Hives Verified 06/10/23 14:56 tramadol HCl [From Ultram] Allergy Hives Verified 06/10/23 14:56 ketorolac [From Toradol] AdvReac Swelling Verified 06/10/23 14:56 Family History Other CVA (cerebral vascular accident) Cancer Diabetes Myocardial infarction Surgical History H/O: hysterectomy History of cholecystectomy Hx of section S/P trigger finger release Social History household members: other details: currently living in a NH for therapy for chronic back pain housing: [facility] Smoking Status: Former smoker Tobacco: How many years used: 46 how long ago did patient quit smoking: She quit smoking in August or 2020. She started smoking at 14 alcohol intake: never substance use type: other details: has a hx of chronic opioid use ROS ROS Narrative GENERAL: Generalized weakness HEENT: denies headache, sinus congestion, or drainage, dysphagia RESPIRATORY: denies cough, sputum production, shortness of breath, CARDIAC: denies chest pain, palpitations, orthopnea, PND GASTROINTESTINAL: Diarrhea GENITOURINARY: denies dysuria, urgency, frequency, heamaturia EXTREMITY: denies swelling MUSCULOSKELETAL: denies current joint pain or tenderness NEUROLOGIC: denies focal numbness, weakness, tingling HEMATOLOGIC: denies easy bruising and/or hemorrhage INTEGUMENT: denies rashes PSYCHIATRIC: Complains of feeling depressed Vital Signs Vital Signs Vital Signs: 11/19/23 08:20 11/19/23 10:26 11/19/23 10:27 Temperature 96.7 F L Temperature Source Temporal Pulse Rate 97 74 72 Respiratory Rate 16 12 15 Blood Pressure 139/60 H 134/74 H 134/74 H Blood Pressure Mean 86 94 94 Pulse Ox 94 99 99 Oxygen Delivery Method Room Air 11/19/23 10:27 Temperature 98.1 F Temperature Source Oral Pulse Rate 72 Respiratory Rate 15 Blood Pressure 134/74 H Blood Pressure Mean 94 Pulse Ox 99 Oxygen Delivery Method Room Air Weight Weight: 85.8 kg Body Mass Index (BMI) 36.9 Physical Exam Narrative GENERAL: Significantly flat affect HEENT: Atraumatic; normocephalic EYES; Anicteric, Normal Conjunctiva NECK; supple, normal thyroid, RESPIRATORY: Diminished to auscultation CARDIOVASCULAR: Regular S1 S2, GI: soft, normoactive bowel sounds, : No Renal angle tenderness; EXTREMITIES: No edema, no clubbing, MUSCULOSKELETAL: no muscle wasting NEURO: Awake; no lateralizing signs. SKIN: No Rash PSYCH; Flat affect Results Lab / Micro Data 11/19/23 08:24 11/19/23 08:24 Labs: Laboratory Results - last 24 hr 11/19/23 08:24: WBC 11.8 H, RBC 4.58, Hgb 13.7, Hct 40.2, MCV 87.8, MCH 29.9, MCHC 34.1, RDW Std Deviation 43.6, RDW Coeff of Anisa 13.5, Plt Count 306, MPV 10.9, Immature Gran % (Auto) 0.300, Neut % (Auto) 59.6, Lymph % (Auto) 35.7, [place]% (Auto) 3.3, Eos % (Auto) 0.4, Baso % (Auto) 0.7, Absolute Neuts (auto) 7.0, Absolute Lymphs (auto) 4.21, Nucleated RBC % 0, Sodium 127 L, Potassium 3.4 L, Chloride 92 L, Carbon Dioxide 24.0, Anion Gap 11, BUN 16, Creatinine 1.68 H, Estim Creat Clear Calc 34.64, Est GFR (MDRD) Af Amer 40 L, Est GFR (MDRD) Non-Af33 L, BUN/Creatinine Ratio 9.5 L, Glucose 484 H*, Calcium 9.6, Total Bilirubin 0.60, Direct Bilirubin 0.16, AST 30, ALT 33, Alkaline Phosphatase 73, Total Protein 8.5 H, Albumin 3.9, Globulin 4.6 H, Lipase 39, Acetone Level NEGATIVE 11/19/23 10:11: POC Glucose 356 H 11/19/23 10:14: Urine Color Yellow, Urine Clarity Sl. Cloudy, Urine pH 6.0, Ur Specific [place] 1.015, Urine Protein 30 H, Urine Glucose (UA) 1000 H, Urine Ketones Negative, Urine Occult Blood 10 H, Urine Nitrite Negative, Urine Bilirubin Negative, Urine Urobilinogen Normal, Ur Leukocyte Esterase 100 H, Urine RBC 0-5 SEEN, Urine WBC 10-25 SEEN, Ur Squamous Epith Cells 10-25 SEEN, Urine Bacteria 0 SEEN, Urine Mucus 0 SEEN, Urine Yeast 2+ Assessment & Plan Assessment/Plan (1) Diabetes mellitus with hyperglycemia: PLAN: Plan Patient is a 58-year-old female with history of diabetes mellitus type 2 presenting with progressive generalized weakness with diarrhea 1. Hyperglycemia ? In a patient with diabetes mellitus type 2 who has been noncompliant for the past 4 days. Patient has been admitted to regular nursing floor started on IV fluids. Patient was also started on her long-acting insulin and short acting Premeal insulin in addition to sliding scale insulin 2. Diabetes mellitus type 2 ? Patient presented with hyperglycemia management discussed above 3. Hyponatremia ? Due to combination of patient's hyperglycemia as well as hypovolemic hyponatremia from patient diarrhea. Patient started on IV fluid with subsequentmonitoring of electrolytes ordered 4. Acute gastroenteritis ? Ordered for stool studies 5. Acute kidney injury ? Secondary to dehydration from patient gastroenteritis patient started on IV fluid with subsequent monitoring of electrolytes ordered 6. Hypokalemia ? Corrected per protocol repeat labs ordered for monitoring 7. Hypothyroidism ? Secondary to previous thyroidectomy patient is on levothyroxine did continue home dose 8. GERD ? On PPI 9. Dyslipidemia -Patient is on statin therapy, continued at home dose 10. Class II obesity with BMI of 37 ? Complicating care weight loss advised 11. Physical deconditioning - Requested for PT OT eval and social studies teacher to assist with discharge planning 12. DVT prophylaxis ? SC Lovenox Advance planning; did discuss with the patient and family regarding advanced directives as well as CODE STATUS. Did explain the various scenarios involved (FULL CODE, DNR CCA, DNR CCA with no intubation, and DNR CC and what each meant) patient elected to remain full code with CPR and intubation if needed. Order was placed. Time spent on discussion 18 minutes. Time spent in the patient's overall evaluation,decision-making process, review of diagnostic data, adjustment of management, discussion with other providers, nursing nursing and ancillary staff involved in patient's care documentation, 75Minutes Charges/Coding Visit Charges Inpatient E&M: 15583 Init Hosp L3 Procedures Hospitalists Procedures: 85399 Advncd Care Plan addl 30 Min 11/19/23 1102 <Electronically signed by John Shaw MD> Cosigner Signature (if applicable): CC: Dr. Jarred Lopez MD; Dr. John Shaw MD~ Signed [facility] Work Phone: Hospital Discharge instructions Additional Instructions Your MRI today showed some mild disc disease of L3 and L4. The thoracic spine was fine. There is no compression of your spinal cord. Nothing needs to be done acutely. Motrin and Tylenol for pain. Follow-up with your primary care physician.[facility] Work Phone: Hospital Discharge instructionsWMagruder [facility] Work Phone: [phone] Discharge instructionsWMagruder [facility] Hospital Work Phone: Hospital Discharge instructionsWMagruder [facility] Hospital Work Phone: Hospital Discharge instructionsWMagruder [facility] Work Phone: [phone] Discharge instructionsWMagruder [facility] Work Phone: [phone] Discharge instructionsWMagruder [facility] Work Phone: [phone] Discharge instructionsWMagruder [facility] Work Phone: [phone] Discharge instructionsWMagruder [facility] Work Phone: [phone] Discharge instructionsWMagruder [facility] Work Phone: [phone] Discharge instructionsWMagruder [facility] Work Phone: [phone] Discharge instructionsWMagruder [facility] Work Phone: [phone] Discharge instructions Additional Instructions Your work-up today does not show a kidney stone bowel obstruction or acute appendicitis. It does demonstrate urinary tract infection but at this time it is not causing kidney damage or moving in your bloodstream. Therefore take the antibiotic as directed to help resolve your infection and return to the ER should you have any further concerns.[facility] Work Phone: Hospital Discharge instructions Additional Instructions Discard the [place] prescription. Patient has used Percocet before in the past and should be fine with this for pain. Follow-up with your doctor if not improving.[facility] Work Phone: Hospital Discharge instructions Additional Instructions Increase fiber in your diet. Take an [id number] stool softener.[facility] Work Phone: Hospital Discharge instructions Additional Instructions Watch her blood sugars very closely. Take your medications as prescribed. Recheck your blood sugar prior to going to bed tonight Call and follow-up your primary care physician this coming week.[facility] Work Phone: Reason for referral (narrative)* Diagnostic Procedure Only (Routine) - Pending Review Specialty Diagnoses / Procedures Referred By Contac t Referred To Contact [facility] Diagnoses Encounter for screening mammogram for breast cancer Procedures OLIVER SCREENING SCREENING MAMMOGRAPHY BI 2-VIEW BREAST INC CAD Dwayne Lopez MD [address] [place] [address] [facility] [address] [place] [address] Referral ID Status Reason Start Date Expiration Date Visits Requested Visits Authorized [id number] Pending Review Auto-Generat ed Referral 03/08/2024 04/07/2025 1 1 [facility] for referral (narrative)No reason for referral information availableWooRiverside [facility] Work Phone: Summary Purpose Family History No Family History Records Found Relationship Condition Age at Onset Recorded Date/T lukasz Not Specified Diabetes mellitus Unknown Myocardial infarction Unknown Malignant neoplasm Unknown Cerebrovascular accident (CVA) Unknown Relationship Condition Age at Onset Recorded Date/T lukasz mother Malignant neoplasm Unknown Cerebrovascular accident (CVA) Unknown Hypertension Unknown Cardiac disease Unknown Myocardial infarction Unknown Diabetes mellitus Unknown father Asthma Unknown Advance Directives No Advanced Directives Records Found Advance Directive Response Recorded Date/ Time Advance Directives No April 21 2:21pm Living Will No January 13, 2022 2:31pm Power of Salt Operator No January 13 2:31pm Advance Directive Response Recorded Date/ Time Advance Directives No April 21 2:21pm Living Will No February 24, 2022 1: 16pm Power of Salt Operator No February 24, 2022 1:16pm Advance Directive Response Recorded Date/ Time Advance Directives No April 21 2:21pm Living Will No March 20, 2022 5 :54pm Power of Salt Operator No March 20, 2022 5:54pm Documents on File Type Date 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 Advance Directive(s) 10/10/2020 10:19 AM Advance Directive(s) 10/01/2020 10:25 AM Advance Directive(s) 05/20/2020 4:17 PM Advance Directive(s) 05/09/2020 11:51 AM Advance Directive(s) 05/03/2020 11:33 AM Advance Directive(s) 10/12/2019 1:17 PM Advance Directive(s) 06/30/2017 11:57 AM Advance Directive(s) 06/23/2017 8:06 AM Advance Directive(s) 04/08/2016 8:19 AM Advance Directive(s) 03/31/2016 11:25 AM Advance Directive Response Recorded Date/ Time Advance Directives No April 21 2:21pm Living Will No April 24, 2022 5 :45pm Power of Salt Operator No April 24, 2022 5:45pm Advance Directive Response Recorded Date/ Time Advance Directives No May 13 3:12pm Living Will No May 20, 2022 10:19pm Power of Salt Operator No May 20 10:19pm Advance Directive Response Recorded Date/ Time Advance Directives No May 13 3:12pm Living Will No May 21, 2022 4:04am Power of Salt Operator No May 21 4:04am Advance Directive Response Recorded Date/ Time Advance Directives No May 13 3:12pm Living Will No August 24 3:23am Power of Salt Operator No August 24, 2022 3:23am Advance Directive Response Recorded Date/ Time Advance Directives No May 13 2:12pm Living Will No August 24 2:23am Power of Salt Operator No August 24, 2022 2:23am Advance Directive Response Recorded Date/ Time Advance Directives No May 13 2:12pm Living Will No October 09 1:31am Power of Salt Operator No October 09, 2022 1:31am Advance Directive Response Recorded Date/ Time Advance Directives No May 13 2:12pm Living Will No November 05 1:46am Power of Salt Operator No November 05, 2022 1:46am Advance Directive Response Recorded Date/ Time Advance Directives No May 13 3:12pm Living Will No January 06, 2023 5:42pm Power of Salt Operator No January 06 5:42pm Advance Directive Response Recorded Date/ Time Advance Directives No May 13 3:12pm Living Will No January 07, 2023 3:43pm Power of Salt Operator No January 07 3:43pm Advance Directive Response Recorded Date/ Time Advance Directives No May 13 3:12pm Living Will No January 29, 2023 10:04pm Power of Salt Operator No January 29 10:04pm Advance Directive Response Recorded Date/ Time Advance Directives No May 13 3:12pm Living Will No March 28, 2023 9 :08am Power of Salt Operator No March 28, 2023 9:08am Advance Directive Response Recorded Date/ Time Advance Directives No May 13 3:12pm Living Will No June 04 3 4:57pm Power of Salt Operator No June 04 023 4:57pm Advance Directive Response Recorded Date/ Time Advance Directives No May 13 3:12pm Living Will No June 06 3 6:12pm Power of Salt Operator No June 06, 023 6:12pm Advance Directive Response Recorded Date/ Time Advance Directives No May 13 3:12pm Living Will No June 10 3 2:58pm Power of Salt Operator No June 10, 2 023 2:58pm Advance Directive Response Recorded Date/ Time Advance Directives No May 13 2:12pm Living Will No November 19 8:42am Power of Salt Operator No November 19, 2023 8:42am Advance Directive Response Recorded Date/ Time Advance Directives No May 13 2:12pm Living Will No January 01, 2024 6:36pm Power of Salt Operator No December 31 6:36pm Advance Directive Response Recorded Date/ Time Advance Directives No May 13 3:12pm Living Will No January 02, 2024 12:44am Power of Salt Operator No January 01 12:44am Advance Directive Response Recorded Date/ Time Advance Directives No May 13 3:12pm Living Will No January 20, 2024 1:09am Power of Salt Operator No January 19 1:09am Advance Directive Response Recorded Date/ Time Living Will No October 24 12:12pm Do you have a Healthcare Power of Salt Operator? No October 24, 2024 12:12pm Living Will No January 22, 2025 10:46am Do you have a Healthcare Power of Salt Operator? No January 22, 2025 10:46am Advance Directives No May 13 3:12pm Chief Complaint and Reason for Visit Chief Complaint DIABETIC WOUND GENERAL ILLNESS Chief Complaint GENERAL ILLNESS NUMBNESS Chief Complaint GENERAL ILLNESS NUMBNESS ACUTE ON CHRONIC LOW BACK PAIN ACUTE ON CHRONIC LOW BACK PAIN Reason for Visit Intervertebral disc disorder with radiculopathy of lumbar region Chief Complaint GENERAL ILLNESS NUMBNESS ACUTE ON CHRONIC LOW BACK PAIN ACUTE ON CHRONIC LOW BACK PAIN ACUTE ON CHRONIC LOW BACK PAIN ACUTE ON CHRONIC LOW BACK PAIN ACUTE ON CHRONIC LOW BACK PAIN ACUTE ON CHRONIC LOW BACK PAIN ACUTE ON CHRONIC LOW BACK PAIN ACUTE ON CHRONIC LOW BACK PAIN ACUTE ON CHRONIC LOW BACK PAIN ACUTE ON CHRONIC LOW BACK PAIN ACUTE ON CHRONIC LOW BACK PAIN Reason for Visit Intervertebral disc disorder with radiculopathy of lumbar region HTN (hypertension) Pure hypercholesterolemia Chief Complaint GENERAL ILLNESS NUMBNESS ACUTE ON CHRONIC LOW BACK PAIN ACUTE ON CHRONIC LOW BACK PAIN ACUTE ON CHRONIC LOW BACK PAIN ACUTE ON CHRONIC LOW BACK PAIN ACUTE ON CHRONIC LOW BACK PAIN ACUTE ON CHRONIC LOW BACK PAIN ACUTE ON CHRONIC LOW BACK PAIN ACUTE ON CHRONIC LOW BACK PAIN ACUTE ON CHRONIC LOW BACK PAIN ACUTE ON CHRONIC LOW BACK PAIN ACUTE ON CHRONIC LOW BACK PAIN ACUTE ON CHRONIC LOW BACK PAIN CUSTODIAL LABWORK LABWORK Chief Complaint GENERAL ILLNESS NUMBNESS ACUTE ON CHRONIC LOW BACK PAIN ACUTE ON CHRONIC LOW BACK PAIN ACUTE ON CHRONIC LOW BACK PAIN ACUTE ON CHRONIC LOW BACK PAIN ACUTE ON CHRONIC LOW BACK PAIN ACUTE ON CHRONIC LOW BACK PAIN ACUTE ON CHRONIC LOW BACK PAIN ACUTE ON CHRONIC LOW BACK PAIN ACUTE ON CHRONIC LOW BACK PAIN ACUTE ON CHRONIC LOW BACK PAIN ACUTE ON CHRONIC LOW BACK PAIN ACUTE ON CHRONIC LOW BACK PAIN CUSTODIAL LABWORK LABWORK CP, DM, HTN CP, DM, HTN CP, DM, HTN CP, DM, HTN Reason for Visit Chest pain Chronic renal failure, stage 3a Elevated troponin History of diabetes mellitus Hyperlipidemia Normochromic normocytic anemia Obesity (BMI 35.0-39.9 without comorbidity) Opiate abuse, continuous Chronic back pain Depressive disorder Chief Complaint GENERAL ILLNESS NUMBNESS ACUTE ON CHRONIC LOW BACK PAIN ACUTE ON CHRONIC LOW BACK PAIN ACUTE ON CHRONIC LOW BACK PAIN ACUTE ON CHRONIC LOW BACK PAIN ACUTE ON CHRONIC LOW BACK PAIN ACUTE ON CHRONIC LOW BACK PAIN ACUTE ON CHRONIC LOW BACK PAIN ACUTE ON CHRONIC LOW BACK PAIN ACUTE ON CHRONIC LOW BACK PAIN ACUTE ON CHRONIC LOW BACK PAIN ACUTE ON CHRONIC LOW BACK PAIN ACUTE ON CHRONIC LOW BACK PAIN CUSTODIAL LABWORK LABWORK CP, DM, HTN CP, DM, HTN CP, DM, HTN CP, DM, HTN CHEST PAIN Reason for Visit Chest pain Chief Complaint NUMBNESS ACUTE ON CHRONIC LOW BACK PAIN ACUTE ON CHRONIC LOW BACK PAIN ACUTE ON CHRONIC LOW BACK PAIN ACUTE ON CHRONIC LOW BACK PAIN ACUTE ON CHRONIC LOW BACK PAIN ACUTE ON CHRONIC LOW BACK PAIN ACUTE ON CHRONIC LOW BACK PAIN ACUTE ON CHRONIC LOW BACK PAIN ACUTE ON CHRONIC LOW BACK PAIN ACUTE ON CHRONIC LOW BACK PAIN ACUTE ON CHRONIC LOW BACK PAIN ACUTE ON CHRONIC LOW BACK PAIN CUSTODIAL LABWORK LABWORK CUSTODIAL LABWORK CP, DM, HTN CP, DM, HTN CP, DM, HTN CP, DM, HTN NEW SYMPTOMS/CONCERNS CHEST PAIN CHEST PAIN ER FOLLOW UP CHEST PAIN Reason for Visit Chest pain Diabetes Nonspecific chest pain Renal insufficiency Chief Complaint NUMBNESS ACUTE ON CHRONIC LOW BACK PAIN ACUTE ON CHRONIC LOW BACK PAIN ACUTE ON CHRONIC LOW BACK PAIN ACUTE ON CHRONIC LOW BACK PAIN ACUTE ON CHRONIC LOW BACK PAIN ACUTE ON CHRONIC LOW BACK PAIN ACUTE ON CHRONIC LOW BACK PAIN ACUTE ON CHRONIC LOW BACK PAIN ACUTE ON CHRONIC LOW BACK PAIN ACUTE ON CHRONIC LOW BACK PAIN ACUTE ON CHRONIC LOW BACK PAIN ACUTE ON CHRONIC LOW BACK PAIN CUSTODIAL LABWORK LABWORK CUSTODIAL LABWORK CP, DM, HTN CP, DM, HTN CP, DM, HTN CP, DM, HTN NEW SYMPTOMS/CONCERNS CHEST PAIN CHEST PAIN ER FOLLOW UP CHEST PAIN CHEST PAIN Reason for Visit Chest pain Diabetes Hypothyroidism Nonspecific chest pain Renal insufficiency Chief Complaint NUMBNESS ACUTE ON CHRONIC LOW BACK PAIN ACUTE ON CHRONIC LOW BACK PAIN ACUTE ON CHRONIC LOW BACK PAIN ACUTE ON CHRONIC LOW BACK PAIN ACUTE ON CHRONIC LOW BACK PAIN ACUTE ON CHRONIC LOW BACK PAIN ACUTE ON CHRONIC LOW BACK PAIN ACUTE ON CHRONIC LOW BACK PAIN ACUTE ON CHRONIC LOW BACK PAIN ACUTE ON CHRONIC LOW BACK PAIN ACUTE ON CHRONIC LOW BACK PAIN ACUTE ON CHRONIC LOW BACK PAIN CUSTODIAL LABWORK LABWORK CUSTODIAL LABWORK CP, DM, HTN CP, DM, HTN CP, DM, HTN CP, DM, HTN LAB WORK NEW SYMPTOMS/CONCERNS CHEST PAIN CHEST PAIN ER FOLLOW UP CHEST PAIN CHEST PAIN Reason for Visit Chest pain Diabetes Hypothyroidism Nonspecific chest pain Renal insufficiency Chief Complaint NUMBNESS ACUTE ON CHRONIC LOW BACK PAIN ACUTE ON CHRONIC LOW BACK PAIN ACUTE ON CHRONIC LOW BACK PAIN ACUTE ON CHRONIC LOW BACK PAIN ACUTE ON CHRONIC LOW BACK PAIN ACUTE ON CHRONIC LOW BACK PAIN ACUTE ON CHRONIC LOW BACK PAIN ACUTE ON CHRONIC LOW BACK PAIN ACUTE ON CHRONIC LOW BACK PAIN ACUTE ON CHRONIC LOW BACK PAIN ACUTE ON CHRONIC LOW BACK PAIN ACUTE ON CHRONIC LOW BACK PAIN CUSTODIAL LABWORK LABWORK CUSTODIAL LABWORK CP, DM, HTN CP, DM, HTN CP, DM, HTN CP, DM, HTN LAB WORK NEW SYMPTOMS/CONCERNS CHEST PAIN CHEST PAIN ER FOLLOW UP CUSTODIAL LABWORK LAB WORK CHEST PAIN CHEST PAIN CUSTODIAL LABWORK Amb Documentation s/p hosp/ [employer] consult in ER Reason for Visit Hyperlipidemia Chest pain Hypothyroidism Nonspecific chest pain Atherosclerotic heart disease of [place] coronary artery without angina pectoris Chest pressure Dizziness Dyspnea Essential hypertension Hyperlipidemia Chief Complaint ACUTE ON CHRONIC LOW BACK PAIN ACUTE ON CHRONIC LOW BACK PAIN ACUTE ON CHRONIC LOW BACK PAIN ACUTE ON CHRONIC LOW BACK PAIN ACUTE ON CHRONIC LOW BACK PAIN ACUTE ON CHRONIC LOW BACK PAIN ACUTE ON CHRONIC LOW BACK PAIN ACUTE ON CHRONIC LOW BACK PAIN ACUTE ON CHRONIC LOW BACK PAIN ACUTE ON CHRONIC LOW BACK PAIN ACUTE ON CHRONIC LOW BACK PAIN ACUTE ON CHRONIC LOW BACK PAIN CUSTODIAL LABWORK LABWORK CUSTODIAL LABWORK CP, DM, HTN CP, DM, HTN CP, DM, HTN CP, DM, HTN LAB WORK NEW SYMPTOMS/CONCERNS CHEST PAIN CHEST PAIN ER FOLLOW UP CUSTODIAL LABWORK LAB WORK CHEST PAIN CHEST PAIN CUSTODIAL LABWORK CUSTODIAL LABWORK Amb Documentation s/p hosp/ [employer] consult in ER CUSTODIAL LABWORK DYSPNEA *OSCAR* Reason for Visit Hyperlipidemia Chest pain Hypothyroidism Nonspecific chest pain Atherosclerotic heart disease of [place] coronary artery without angina pectoris Chest pressure Dizziness Dyspnea Essential hypertension Hyperlipidemia Chief Complaint ACUTE ON CHRONIC LOW BACK PAIN ACUTE ON CHRONIC LOW BACK PAIN ACUTE ON CHRONIC LOW BACK PAIN ACUTE ON CHRONIC LOW BACK PAIN ACUTE ON CHRONIC LOW BACK PAIN ACUTE ON CHRONIC LOW BACK PAIN ACUTE ON CHRONIC LOW BACK PAIN ACUTE ON CHRONIC LOW BACK PAIN ACUTE ON CHRONIC LOW BACK PAIN ACUTE ON CHRONIC LOW BACK PAIN ACUTE ON CHRONIC LOW BACK PAIN ACUTE ON CHRONIC LOW BACK PAIN CUSTODIAL LABWORK LABWORK CUSTODIAL LABWORK CP, DM, HTN CP, DM, HTN CP, DM, HTN CP, DM, HTN LAB WORK NEW SYMPTOMS/CONCERNS CHEST PAIN CHEST PAIN ER FOLLOW UP CUSTODIAL LABWORK LAB WORK CHEST PAIN CHEST PAIN CUSTODIAL LABWORK CUSTODIAL LABWORK Amb Documentation s/p hosp/ [employer] consult in ER CUSTODIAL LABWORK CUSTODIAL LAB WORK DYSPNEA *OSCAR* CUSTODIAL LAB WORK Reason for Visit Hyperlipidemia Chest pain Hypothyroidism Nonspecific chest pain Atherosclerotic heart disease of [place] coronary artery without angina pectoris Chest pressure Dizziness Dyspnea Essential hypertension Hyperlipidemia Chief Complaint LABWORK CUSTODIAL LABWORK CP, DM, HTN CP, DM, HTN CP, DM, HTN CP, DM, HTN LAB WORK NEW SYMPTOMS/CONCERNS CHEST PAIN CHEST PAIN ER FOLLOW UP CUSTODIAL LABWORK LAB WORK CHEST PAIN CHEST PAIN CUSTODIAL LABWORK CUSTODIAL LABWORK Amb Documentation s/p hosp/ [employer] consult in ER CUSTODIAL LABWORK CUSTODIAL LAB WORK DYSPNEA *OSCAR* LABWORK CUSTODIAL LAB WORK CUSTODIAL LABWORK Reason for Visit Hyperlipidemia Chest pain Hypothyroidism Nonspecific chest pain Atherosclerotic heart disease of [place] coronary artery without angina pectoris Chest pressure Dizziness Dyspnea Essential hypertension Hyperlipidemia Chief Complaint CP, DM, HTN CP, DM, HTN CP, DM, HTN CP, DM, HTN LAB WORK NEW SYMPTOMS/CONCERNS CHEST PAIN CHEST PAIN ER FOLLOW UP CUSTODIAL LABWORK LAB WORK CHEST PAIN CHEST PAIN CUSTODIAL LABWORK CUSTODIAL LABWORK Amb Documentation s/p hosp/ [employer] consult in ER CUSTODIAL LABWORK CUSTODIAL LAB WORK DYSPNEA *OSCAR* LABWORK CUSTODIAL LAB WORK CUSTODIAL LABWORK CUSTODIAL LABWORK Reason for Visit Hyperlipidemia Chest pain Hypothyroidism Nonspecific chest pain Atherosclerotic heart disease of [place] coronary artery without angina pectoris Chest pressure Dizziness Dyspnea Essential hypertension Hyperlipidemia Chief Complaint CHEST PAIN CHEST PAIN ER FOLLOW UP CUSTODIAL LABWORK LAB WORK CHEST PAIN CHEST PAIN CUSTODIAL LABWORK CUSTODIAL LABWORK Amb Documentation s/p hosp/ [employer] consult in ER CUSTODIAL LABWORK CUSTODIAL LAB WORK DYSPNEA *OSCAR* LABWORK CUSTODIAL LAB WORK LABWORK CUSTODIAL LABWORK CUSTODIAL LABWORK CUSTODIAL LAB WORK CP Reason for Visit Hypothyroidism Nonspecific chest pain Atherosclerotic heart disease of [place] coronary artery without angina pectoris Chest pressure Dizziness Dyspnea Essential hypertension Hyperlipidemia Chief Complaint CUSTODIAL LABWORK CUSTODIAL LABWORK Amb Documentation s/p hosp/ [employer] consult in ER CUSTODIAL LABWORK CUSTODIAL LAB WORK DYSPNEA *OSCAR* LABWORK CUSTODIAL LAB WORK LABWORK CUSTODIAL LABWORK CUSTODIAL LABWORK CUSTODIAL LAB WORK CP ER VISIT RETURN CUSTODIAL LABWORK 3 M FU Reason for Visit Atherosclerotic hear t disease of [place] coronary artery without angina pectoris Chest pressure Dizziness Dyspnea Essential hypertension Hyperlipidemia Atherosclerotic heart disease of [place] coronary artery without angina pectoris Bilateral lower extremity edema Essential hypertension Hyperlipidemia Chief Complaint s/p hosp/ [employer] consul t in ER CUSTODIAL LABWORK CUSTODIAL LAB WORK DYSPNEA *OSCAR* LABWORK CUSTODIAL LAB WORK LABWORK CUSTODIAL LABWORK CUSTODIAL LABWORK CUSTODIAL LAB WORK CP ER VISIT RETURN CUSTODIAL LABWORK 3 M FU CUSTODIAL LAB WORK abd pain Reason for Visit Atherosclerotic hear t disease of [place] coronary artery without angina pectoris Chest pressure Dizziness Dyspnea Essential hypertension Hyperlipidemia Atherosclerotic heart disease of [place] coronary artery without angina pectoris Bilateral lower extremity edema Essential hypertension Hyperlipidemia Chief Complaint CUSTODIAL LAB WOR K DYSPNEA *OSCAR* LABWORK CUSTODIAL LAB WORK LABWORK CUSTODIAL LABWORK CUSTODIAL LABWORK CUSTODIAL LAB WORK CP ER VISIT RETURN CUSTODIAL LABWORK MONTHLY EXAM 3 M FU CUSTODIAL LABWORK CUSTODIAL LAB WORK CUSTODIAL LAB WORK abd pain MONTHLY VISIT CUSTODIAL LAB WORK NEW CONCERN Reason for Visit Atherosclerotic hear t disease of [place] coronary artery without angina pectoris Bilateral lower extremity edema Essential hypertension Hyperlipidemia Chief Complaint LABWORK CUSTODIAL LABWORK CUSTODIAL LABWORK CUSTODIAL LAB WORK CP ER VISIT RETURN CUSTODIAL LABWORK MONTHLY EXAM 3 M FU CUSTODIAL LABWORK CUSTODIAL LAB WORK CUSTODIAL LAB WORK abd pain MONTHLY VISIT CUSTODIAL LAB WORK NEW CONCERN NEW PROBLEM/CONCERN chest pain Reason for Visit Atherosclerotic hear t disease of [place] coronary artery without angina pectoris Bilateral lower extremity edema Essential hypertension Hyperlipidemia Chief Complaint CUSTODIAL LABWORK CUSTODIAL LAB WORK CP ER VISIT RETURN CUSTODIAL LABWORK MONTHLY EXAM 3 M FU CUSTODIAL LABWORK CUSTODIAL LAB WORK CUSTODIAL LAB WORK abd pain MONTHLY VISIT CUSTODIAL LAB WORK NEW CONCERN LABWORK NEW PROBLEM/CONCERN chest pain ER FOLLOW UP CUSTODIAL LAB WORK Reason for Visit Atherosclerotic hear t disease of [place] coronary artery without angina pectoris Bilateral lower extremity edema Essential hypertension Hyperlipidemia Chief Complaint CUSTODIAL LABWORK CUSTODIAL LAB WORK CP ER VISIT RETURN CUSTODIAL LABWORK MONTHLY EXAM 3 M FU CUSTODIAL LABWORK CUSTODIAL LAB WORK CUSTODIAL LAB WORK abd pain MONTHLY VISIT CUSTODIAL LAB WORK NEW CONCERN LABWORK NEW PROBLEM/CONCERN CUSTODIAL LABWORK chest pain ER FOLLOW UP NEW CONCERN/PROBLEM CUSTODIAL LAB WORK Reason for Visit Atherosclerotic hear t disease of [place] coronary artery without angina pectoris Bilateral lower extremity edema Essential hypertension Hyperlipidemia Chief Complaint CUSTODIAL LAB WOR K CP ER VISIT RETURN CUSTODIAL LABWORK MONTHLY EXAM 3 M FU CUSTODIAL LABWORK CUSTODIAL LAB WORK CUSTODIAL LAB WORK abd pain MONTHLY VISIT CUSTODIAL LAB WORK NEW CONCERN LABWORK NEW PROBLEM/CONCERN CUSTODIAL LABWORK chest pain ER FOLLOW UP NEW CONCERN/PROBLEM CUSTODIAL LAB WORK MONTHLY EXAM CUSTODIAL LAB WORK Amb Documentation Reason for Visit Atherosclerotic hear t disease of [place] coronary artery without angina pectoris Bilateral lower extremity edema Essential hypertension Hyperlipidemia Chief Complaint 3 M FU CUSTODIAL LABWORK CUSTODIAL LAB WORK CUSTODIAL LAB WORK abd pain MONTHLY VISIT CUSTODIAL LAB WORK NEW CONCERN LABWORK NEW PROBLEM/CONCERN CUSTODIAL LABWORK chest pain ER FOLLOW UP NEW CONCERN/PROBLEM CUSTODIAL LAB WORK MONTHLY EXAM CUSTODIAL LAB WORK CUSTODIAL LAB WORK MONTHLY VISIT Amb Documentation CUSTODIAL LABWORK NEW CONCERN RIGHT FLANK PAIN Reason for Visit Atherosclerotic hear t disease of [place] coronary artery without angina pectoris Bilateral lower extremity edema Essential hypertension Hyperlipidemia Chief Complaint 3 M FU CUSTODIAL LABWORK CUSTODIAL LAB WORK CUSTODIAL LAB WORK abd pain MONTHLY VISIT CUSTODIAL LAB WORK NEW CONCERN LABWORK NEW PROBLEM/CONCERN CUSTODIAL LABWORK chest pain ER FOLLOW UP NEW CONCERN/PROBLEM CUSTODIAL LAB WORK MONTHLY EXAM CUSTODIAL LAB WORK CUSTODIAL LAB WORK MONTHLY VISIT Amb Documentation CUSTODIAL LABWORK NEW CONCERN RIGHT FLANK PAIN FLANK PAIN Reason for Visit Atherosclerotic hear t disease of [place] coronary artery without angina pectoris Bilateral lower extremity edema Essential hypertension Hyperlipidemia Chief Complaint CUSTODIAL LAB WOR K abd pain MONTHLY VISIT CUSTODIAL LAB WORK NEW CONCERN LABWORK NEW PROBLEM/CONCERN CUSTODIAL LABWORK chest pain ER FOLLOW UP NEW CONCERN/PROBLEM CUSTODIAL LAB WORK MONTHLY EXAM CUSTODIAL LAB WORK CUSTODIAL LAB WORK MONTHLY VISIT Amb Documentation CUSTODIAL LABWORK NEW CONCERN CUSTODIAL LAB WORK CUSTODIAL LAB WORK NEW CONCERN/PROBLEM CUSTODIAL LABWORK NEW CONCERNS CUSTODIAL LAB WORK MONTHLY EXAM RIGHT FLANK PAIN FLANK PAIN NEW CONCERN NEW CONCERN Chief Complaint abd pain MONTHLY VISIT CUSTODIAL LAB WORK NEW CONCERN LABWORK NEW PROBLEM/CONCERN CUSTODIAL LABWORK chest pain ER FOLLOW UP NEW CONCERN/PROBLEM CUSTODIAL LAB WORK MONTHLY EXAM CUSTODIAL LAB WORK CUSTODIAL LAB WORK MONTHLY VISIT Amb Documentation CUSTODIAL LABWORK NEW CONCERN CUSTODIAL LAB WORK CUSTODIAL LAB WORK NEW CONCERN/PROBLEM CUSTODIAL LABWORK NEW CONCERNS CUSTODIAL LAB WORK MONTHLY EXAM RIGHT FLANK PAIN FLANK PAIN NEW CONCERN NEW CONCERN CUSTODIAL LAB WORK HYPERSOMNIA Chief Complaint abd pain MONTHLY VISIT CUSTODIAL LAB WORK NEW CONCERN LABWORK NEW PROBLEM/CONCERN CUSTODIAL LABWORK chest pain ER FOLLOW UP NEW CONCERN/PROBLEM CUSTODIAL LAB WORK MONTHLY EXAM CUSTODIAL LAB WORK CUSTODIAL LAB WORK MONTHLY VISIT Amb Documentation CUSTODIAL LABWORK NEW CONCERN CUSTODIAL LAB WORK CUSTODIAL LAB WORK NEW CONCERN/PROBLEM CUSTODIAL LABWORK NEW CONCERNS CUSTODIAL LAB WORK MONTHLY EXAM RIGHT FLANK PAIN FLANK PAIN NEW CONCERN NEW CONCERN CUSTODIAL LAB WORK HYPERSOMNIA CP Chief Complaint abd pain MONTHLY VISIT CUSTODIAL LAB WORK NEW CONCERN LABWORK NEW PROBLEM/CONCERN CUSTODIAL LABWORK chest pain ER FOLLOW UP NEW CONCERN/PROBLEM CUSTODIAL LAB WORK MONTHLY EXAM CUSTODIAL LAB WORK CUSTODIAL LAB WORK MONTHLY VISIT Amb Documentation CUSTODIAL LABWORK NEW CONCERN CUSTODIAL LAB WORK CUSTODIAL LAB WORK NEW CONCERN/PROBLEM CUSTODIAL LABWORK NEW CONCERNS CUSTODIAL LAB WORK MONTHLY EXAM RIGHT FLANK PAIN FLANK PAIN NEW CONCERN NEW CONCERN CUSTODIAL LAB WORK CUSTODIAL LABWORK HYPERSOMNIA CP Chief Complaint CUSTODIAL LAB WOR K MONTHLY VISIT Amb Documentation CUSTODIAL LABWORK NEW CONCERN CUSTODIAL LAB WORK CUSTODIAL LAB WORK NEW CONCERN/PROBLEM CUSTODIAL LABWORK NEW CONCERNS CUSTODIAL LAB WORK MONTHLY EXAM RIGHT FLANK PAIN FLANK PAIN NEW CONCERN NEW CONCERN CUSTODIAL LAB WORK CUSTODIAL LABWORK HYPERSOMNIA CP NEW CONCERN CUSTODIAL LABWORK 5 MO F/U CUSTODIAL LAB WORK CUSTODIAL LABWORK CUSTODIAL LABWORK Reason for Visit Atherosclerotic hear t disease of [place] coronary artery without angina pectoris Bilateral lower extremity edema Essential hypertension Hyperlipidemia Palpitations Chief Complaint CUSTODIAL LAB WOR K MONTHLY VISIT Amb Documentation CUSTODIAL LABWORK NEW CONCERN CUSTODIAL LAB WORK CUSTODIAL LAB WORK NEW CONCERN/PROBLEM CUSTODIAL LABWORK NEW CONCERNS CUSTODIAL LAB WORK MONTHLY EXAM RIGHT FLANK PAIN FLANK PAIN NEW CONCERN NEW CONCERN CUSTODIAL LAB WORK CUSTODIAL LABWORK HYPERSOMNIA CP NEW CONCERN CUSTODIAL LABWORK 5 MO F/U CUSTODIAL LAB WORK CUSTODIAL LABWORK CUSTODIAL LABWORK constipation Reason for Visit Atherosclerotic hear t disease of [place] coronary artery without angina pectoris Bilateral lower extremity edema Essential hypertension Hyperlipidemia Palpitations Chief Complaint 5 MO F/U CUSTODIAL LAB WORK CUSTODIAL LABWORK MONTHLY EXAM CUSTODIAL LABWORK NEW CONCERN constipation ABD PAIN Reason for Visit Atherosclerotic hear t disease of [place] coronary artery without angina pectoris Bilateral lower extremity edema Essential hypertension Hyperlipidemia Palpitations Chief Complaint 5 MO F/U CUSTODIAL LAB WORK CUSTODIAL LABWORK MONTHLY EXAM CUSTODIAL LABWORK NEW CONCERN constipation ABD PAIN General illness Reason for Visit Atherosclerotic hear t disease of [place] coronary artery without angina pectoris Bilateral lower extremity edema Essential hypertension Hyperlipidemia Palpitations Chief Complaint 5 MO F/U CUSTODIAL LAB WORK CUSTODIAL LABWORK MONTHLY EXAM CUSTODIAL LABWORK NEW CONCERN constipation ABD PAIN General illness constipation Reason for Visit Atherosclerotic hear t disease of [place] coronary artery without angina pectoris Bilateral lower extremity edema Essential hypertension Hyperlipidemia Palpitations Chief Complaint hyperglycemia hyperglycemia Reason for Visit Acute leg pain Diabetes mellitus with hyperglycemia Diarrhea Nausea Chief Complaint hyperglycemia hyperglycemia hyperglycemia hyperglycemia hyperglycemia hyperglycemia hyperglycemia LABWORK LABWORK BL PE, CHEST PAIN Reason for Visit Diarrhea Acute leg pain Diabetes mellitus with hyperglycemia Nausea Pulmonary emboli Chief Complaint hyperglycemia hyperglycemia hyperglycemia hyperglycemia hyperglycemia hyperglycemia hyperglycemia LABWORK LABWORK LABWORK BL PE, CHEST PAIN BL PE, CHEST PAIN Reason for Visit Diarrhea Acute leg pain Diabetes mellitus with hyperglycemia Nausea Pulmonary emboli Chief Complaint hyperglycemia hyperglycemia hyperglycemia hyperglycemia hyperglycemia hyperglycemia hyperglycemia LABWORK LABWORK LABWORK BL PE, CHEST PAIN BL PE, CHEST PAIN BL PE, CHEST PAIN BL PE, CHEST PAIN BL PE, CHEST PAIN Reason for Visit Diarrhea Acute leg pain Diabetes mellitus with hyperglycemia Nausea Chest pressure Pulmonary emboli Chief Complaint hyperglycemia hyperglycemia hyperglycemia hyperglycemia hyperglycemia hyperglycemia hyperglycemia LABWORK LABWORK LABWORK LABWORK LABWORK BL PE, CHEST PAIN BL PE, CHEST PAIN BL PE, CHEST PAIN BL PE, CHEST PAIN BL PE, CHEST PAIN Reason for Visit Diarrhea Acute leg pain Diabetes mellitus with hyperglycemia Nausea Chest pressure Pulmonary emboli Chief Complaint hyperglycemia hyperglycemia hyperglycemia hyperglycemia hyperglycemia hyperglycemia hyperglycemia ADMISSION EXAM RECEPTIONIST [employer]LINE LOUNGE LABWORK ADMISSION EXAM MD LABWORK LABWORK LABWORK CUSTODIAL LAB WORK LABWORK BL PE, CHEST PAIN BL PE, CHEST PAIN BL PE, CHEST PAIN BL PE, CHEST PAIN BL PE, CHEST PAIN Reason for Visit Diarrhea Acute leg pain Diabetes mellitus with hyperglycemia Nausea Chest pressure Chief Complaint hyperglycemia hyperglycemia hyperglycemia hyperglycemia hyperglycemia hyperglycemia hyperglycemia ADMISSION EXAM RECEPTIONIST [employer]GE LABWORK ADMISSION EXAM MD LABWORK LABWORK LABWORK CUSTODIAL LAB WORK LABWORK BL PE, CHEST PAIN BL PE, CHEST PAIN BL PE, CHEST PAIN BL PE, CHEST PAIN BL PE, CHEST PAIN chest pain Reason for Visit Diarrhea Acute leg pain Diabetes mellitus with hyperglycemia Nausea Chest pressure Chief Complaint hyperglycemia hyperglycemia hyperglycemia hyperglycemia hyperglycemia hyperglycemia hyperglycemia ADMISSION EXAM RECEPTIONIST [employer] LABWORK ADMISSION EXAM MD LABWORK LABWORK LABWORK CUSTODIAL LAB WORK NEW CONCERN LABWORK BL PE, CHEST PAIN BL PE, CHEST PAIN BL PE, CHEST PAIN BL PE, CHEST PAIN BL PE, CHEST PAIN LABWORK LAB WORK LABWORK LABWORK LAB WORK chest pain LABWORK LABWORK MONTHLY EXAM CUSTODIAL LAB WORK LABWORK CUSTODIAL LAB WORK LABWORK Reason for Visit Diarrhea Acute leg pain Diabetes mellitus with hyperglycemia Nausea Chest pressure Chief Complaint Admit Date MONTHLY EXAM September 26, 2024 1 1:30pm LABWORK September 29, 2024 5 :00am LABWORK October 06, 2024 5:00am RT BREAST PAIN October 06, 2024 2:19pm CUSTODIAL LAB WORK October 13 4:00am CUSTODIAL LAB WORK October 20 5:00am abd pain October 24, 2024 11:08am CUSTODIAL LAB WORK October 27, 2024 5:00am MONTHLY VISIT October 27, 2024 5: 39pm LABWORK November 01, 2024 5: 07am LABWORK November 03, 2024 5 :04am LABWORK November 10, 2024 5 :00am LABWORK November 17, 2024 5 :00am LABWORK November 24, 2024 5 :00am MONTHLY EXAM November 28, 2024 9 :33pm CUSTODIAL LAB WORK November 30, 2024 5:00am LABWORK December 07, 2024 8:00pm LABWORK January 05, 2025 5:0 0am CP January 22, 2025 10: 39am Chief Complaint Admit Date LABWORK September 29, 2024 5 :00am LABWORK October 06, 2024 5:00am RT BREAST PAIN October 06, 2024 2:19pm CUSTODIAL LAB WORK October 13 4:00am CUSTODIAL LAB WORK October 20 5:00am abd pain October 24, 2024 11:08am CUSTODIAL LAB WORK October 27, 2024 5:00am MONTHLY VISIT October 27, 2024 5: 39pm LABWORK November 01, 2024 5: 07am LABWORK November 03, 2024 5 :04am LABWORK November 10, 2024 5 :00am LABWORK November 17, 2024 5 :00am LABWORK November 24, 2024 5 :00am MONTHLY EXAM November 28, 2024 9 :33pm CUSTODIAL LAB WORK November 30, 2024 5:00am LABWORK December 07, 2024 8:00pm MONTHLY EXAM January 04, 2025 10: 31am LABWORK January 05, 2025 5:0 0am CP January 22, 2025 10: 39am ACUTE CARE VISIT January 22, 2025 4:0 1pm Reason for Referral Specialty Diagnoses / Procedures Referred By Mamta redmond Referred To Contact Podiatry Diagnoses Diabetic polyneuropathy associated with type 2 diabetes mellitus (HCC) Procedures CONSULT TO PODIATRY OFFICE/OUTPATIENT [facility] 60-74 MINUTES Dwayne Lopez MD [address] [place] [address] Referral ID Status Reason Start Date Expiration Date Visits Requested Visits Authorized [id number] Pending Review PCP Requested Referral 04/07/2023 04/06/2024 1 1 Specialty Diagnoses / Procedures Referred By Contac t Referred To Contact General Surgery Diagnoses Globus sensation Screening for colon cancer Procedures CONSULT TO GENERAL SURGERY OFFICE/OUTPATIENT [facility] MDM 60-74 MINUTES Dwayne Lopez MD [address] [place] [address] Referral ID Status Reason Start Date Expiration Date Visits Requested Visits Authorized [id number] Pending Review PCP Requested Referral 04/07/2023 04/06/2024 1 1 Specialty Diagnoses / Procedures Referred By Contac t Referred To Contact Ophthalmology Diagnoses Diabetes mellitus type 2 with neurological manifestations (HCC) Change in vision Procedures CONSULT TO OPHTHALMOLOGY OFFICE/OUTPATIENT [facility] MDM 60-74 MINUTES Dwayne Lopez MD [address] [place] [address] Referral ID Status Reason Start Date Expiration Date Visits Requested Visits Authorized [id number] Pending Review PCP Requested Referral 04/07/2023 04/06/2024 1 1 Additional Source Comments INFORMATION SOURCE (unrecogn ized section and content) DATE CREATED AUTHOR 04/13/2018 [facility] DATE CREATED AUTHOR AUTHOR'S ORGANIZ ATION 04/14/2018 [facility] DATE CREATED AUTHOR AUTHOR'S ORGANIZ ATION 10/05/2018 [facility] DATE CREATED AUTHOR AUTHOR'S ORGANIZ ATION 10/19/2019 [facility] DATE CREATED AUTHOR AUTHOR'S ORGANIZ ATION 09/28/2020 [facility] ([place] DATE CREATED AUTHOR AUTHOR'S ORGANIZ ATION 03/23/2025 [facility] DATE CREATED AUTHOR AUTHOR'S ORGANIZ ATION 04/03/2025 [facility] Goals (unrecognized section and content) Goals may be documented in a n alternate sectionGoals may be documented in an alternate sectionGoals may be documented in an alternate sectionGoals may be documented in an alternate sectionGoals may be documented in an alternate sectionGoals may be documented in an alternate sectionGoals may be documented in an alternate sectionGoals may be documented in an alternate sectionGoals may be documented in an alternate sectionGoals may be documented in an alternate sectionGoals may be documented in an alternate sectionGoals may be documented in an alternate sectionGoals may be documented in an alternate sectionGoals may be documented in an alternate sectionGoals may be documented in an alternate sectionGoals may be documented in an alternate sectionGoals may be documented in an alternate sectionGoals may be documented in an alternate sectionGoals may be documented in an alternate sectionGoals may be documented in an alternate sectionGoals may be documented in an alternate sectionGoals may be documented in an alternate sectionGoals may be documented in an alternate sectionGoals may be documented in an alternate sectionGoals may be documented in an alternate sectionGoals may be documented in an alternate sectionGoals may be documented in an alternate sectionGoals may be documented in an alternate sectionGoals may be documented in an alternate sectionGoals may be documented in an alternate sectionGoals may be documented in an alternate sectionGoals may be documented in an alternate section Source Comments (unrecognize d section and content) In the event this informatio n is protected by the Federal Confidentiality of Alcohol and Drug Abuse Patient Records regulations: The Federal rules restrict any use of the information to criminally investigate or prosecute any alcohol or drug abuse patient.[facility] CenterIn the event this information is protected by the Federal Confidentiality of Alcohol and Drug Abuse Patient Records regulations: The Federal rules restrict any use of the information to criminally investigate or prosecute any alcohol or drug abuse patient.[facility] CenterIn the event this information is protected by the Federal Confidentiality of Alcohol and Drug Abuse Patient Records regulations: The Federal rules restrict any use of the information to criminally investigate or prosecute any alcohol or drug abuse patient.[facility] CenterIn the event this information is protected by the Federal Confidentiality of Alcohol and Drug Abuse Patient Records regulations: The Federal rules restrict any use of the information to criminally investigate or prosecute any alcohol or drug abuse patient.[facility] CenterIn the event this information is protected by the Federal Confidentiality of Alcohol and Drug Abuse Patient Records regulations: The Federal rules restrict any use of the information to criminally investigate or prosecute any alcohol or drug abuse patient.[facility] CenterIn the event this information is protected by the Federal Confidentiality of Alcohol and Drug Abuse Patient Records regulations: The Federal rules restrict any use of the information to criminally investigate or prosecute any alcohol or drug abuse patient.[facility] CenterIn the event this information is protected by the Federal Confidentiality of Alcohol and Drug Abuse Patient Records regulations: The Federal rules restrict any use of the information to criminally investigate or prosecute any alcohol or drug abuse patient.[facility] CenterIn the event this information is protected by the Federal Confidentiality of Alcohol and Drug Abuse Patient Records regulations: The Federal rules restrict any use of the information to criminally investigate or prosecute any alcohol or drug abuse patient.[facility] CenterIn the event this information is protected by the Federal Confidentiality of Alcohol and Drug Abuse Patient Records regulations: The Federal rules restrict any use of the information to criminally investigate or prosecute any alcohol or drug abuse patient.[facility] CenterIn the event this information is protected by the Federal Confidentiality of Alcohol and Drug Abuse Patient Records regulations: The Federal rules restrict any use of the information to criminally investigate or prosecute any alcohol or drug abuse patient.[facility] CenterIn the event this information is protected by the Federal Confidentiality of Alcohol and Drug Abuse Patient Records regulations: The Federal rules restrict any use of the information to criminally investigate or prosecute any alcohol or drug abuse patient.[facility] CenterIn the event this information is protected by the Federal Confidentiality of Alcohol and Drug Abuse Patient Records regulations: The Federal rules restrict any use of the information to criminally investigate or prosecute any alcohol or drug abuse patient.[facility] CenterIn the event this information is protected by the Federal Confidentiality of Alcohol and Drug Abuse Patient Records regulations: The Federal rules restrict any use of the information to criminally investigate or prosecute any alcohol or drug abuse patient.[facility] CenterIn the event this information is protected by the Federal Confidentiality of Alcohol and Drug Abuse Patient Records regulations: The Federal rules restrict any use of the information to criminally investigate or prosecute any alcohol or drug abuse patient.[facility] CenterIn the event this information is protected by the Federal Confidentiality of Alcohol and Drug Abuse Patient Records regulations: The Federal rules restrict any use of the information to criminally investigate or prosecute any alcohol or drug abuse patient.[facility] CenterIn the event this information is protected by the Federal Confidentiality of Alcohol and Drug Abuse Patient Records regulations: The Federal rules restrict any use of the information to criminally investigate or prosecute any alcohol or drug abuse patient.[facility] CenterIn the event this information is protected by the Federal Confidentiality of Alcohol and Drug Abuse Patient Records regulations: The Federal rules restrict any use of the information to criminally investigate or prosecute any alcohol or drug abuse patient.[facility] CenterIn the event this information is protected by the Federal Confidentiality of Alcohol and Drug Abuse Patient Records regulations: The Federal rules restrict any use of the information to criminally investigate or prosecute any alcohol or drug abuse patient.[facility] CenterIn the event this information is protected by the Federal Confidentiality of Alcohol and Drug Abuse Patient Records regulations: The Federal rules restrict any use of the information to criminally investigate or prosecute any alcohol or drug abuse patient.[facility] CenterIn the event this information is protected by the Federal Confidentiality of Alcohol and Drug Abuse Patient Records regulations: The Federal rules restrict any use of the information to criminally investigate or prosecute any alcohol or drug abuse patient.[facility] CenterIn the event this information is protected by the Federal Confidentiality of Alcohol and Drug Abuse Patient Records regulations: The Federal rules restrict any use of the information to criminally investigate or prosecute any alcohol or drug abuse patient.[facility] CenterIn the event this information is protected by the Federal Confidentiality of Alcohol and Drug Abuse Patient Records regulations: The Federal rules restrict any use of the information to criminally investigate or prosecute any alcohol or drug abuse patient.[facility] CenterIn the event this information is protected by the Federal Confidentiality of Alcohol and Drug Abuse Patient Records regulations: The Federal rules restrict any use of the information to criminally investigate or prosecute any alcohol or drug abuse patient.[facility] CenterIn the event this information is protected by the Federal Confidentiality of Alcohol and Drug Abuse Patient Records regulations: The Federal rules restrict any use of the information to criminally investigate or prosecute any alcohol or drug abuse patient.[facility] CenterIn the event this information is protected by the Federal Confidentiality of Alcohol and Drug Abuse Patient Records regulations: The Federal rules restrict any use of the information to criminally investigate or prosecute any alcohol or drug abuse patient.[facility] CenterIn the event this information is protected by the Federal Confidentiality of Alcohol and Drug Abuse Patient Records regulations: The Federal rules restrict any use of the information to criminally investigate or prosecute any alcohol or drug abuse patient.[facility] CenterIn the event this information is protected by the Federal Confidentiality of Alcohol and Drug Abuse Patient Records regulations: The Federal rules restrict any use of the information to criminally investigate or prosecute any alcohol or drug abuse patient.[facility] CenterIn the event this information is protected by the Federal Confidentiality of Alcohol and Drug Abuse Patient Records regulations: The Federal rules restrict any use of the information to criminally investigate or prosecute any alcohol or drug abuse patient.[facility] CenterIn the event this information is protected by the Federal Confidentiality of Alcohol and Drug Abuse Patient Records regulations: The Federal rules restrict any use of the information to criminally investigate or prosecute any alcohol or drug abuse patient.[facility] CenterIn the event this information is protected by the Federal Confidentiality of Alcohol and Drug Abuse Patient Records regulations: The Federal rules restrict any use of the information to criminally investigate or prosecute any alcohol or drug abuse patient.[facility] CenterIn the event this information is protected by the Federal Confidentiality of Alcohol and Drug Abuse Patient Records regulations: The Federal rules restrict any use of the information to criminally investigate or prosecute any alcohol or drug abuse patient.[facility] CenterIn the event this information is protected by the Federal Confidentiality of Alcohol and Drug Abuse Patient Records regulations: The Federal rules restrict any use of the information to criminally investigate or prosecute any alcohol or drug abuse patient.[facility] Reason for Visit (unrecogniz ed [...] Date Comments Population Health Navigation Outreach 08/18/2023 [place] care gaps Reason Onset Date Comments Refill [...] Date Comments Population Health Navigation Outreach 02/17/2024 [place] CC MA 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 - AWV, Care gaps, HCC gap closure - Ronnie PCSA Reason Onset Date Comments Refill Request 03/21/2024 Reason Onset Date Comments [facility] TIARA RN 04/06/2024 Reason Onset Date Comments Population Health Navigation Outreach 09/08/2024 [place] No PCP Reason Onset Date Comments Population Health Navigation Outreach 11/29/2024 [employer] workbench ronnie Reason Onset Date Comments Allied Health Visit 01/05/2025 Medication A dherence Outreach Reason Onset Date Comments Population Health Navigation Outreach 03/20/2025 [employer] Work[employer] [facility] Care Teams (unrecognized sec tion and content) Team Status: Active Member Role Status Dates Dr. Carlee Valencia III, MD Family Provider Active Dr. Lizet Linares MD Primary Care Provider Active Team Status: Inactive Member Role Status Dates Dr. Ganesh Garcia MD Primary [facility], [facility] Active Miriam Cameron NP, RECEPTIONIST AIRLINE LOUNGE-C Attending Provider Active Team Status: Inactive Member Role Status Dates Dr. Ganesh Garcia MD Primary Care Provider Active Ana Maria Geller NP, NP-C Attending Provider Active Team Status: Inactive Member Role Status Dates Dr. Lizet Linares MD Primary Care Provider, Atten ding Provider Active Team Status: Inactive Member Role Status Dates Dr. Lizet Linares MD Primary Care Provider Active Ana Maria Geller NP, RECEPTIONIST AIRLINE LOUNGE-C Attending Provider Active Team Status: Inactive Member Role Status Dates Dr. Ganesh Garcia MD Primary Care Provider Active Ganesh Garcia MD Attending Provider Active Team Status: Inactive Member Role Status Dates Dr. Ganesh Garcia MD Primary Care Provider Active Dr. Olena Govea DO Attending Provider, Emergency Pro vider Active Team Status: Inactive Member Role Status Dates Dr. Tip Hamilton DO Attending Provider, Emergency Pr ovider Active Dr. Lizet Linares MD Primary Care Provider Active Team Status: Inactive Member Role Status Dates Dr. Lizet Linares MD Primary Care Provider Active Lizet Linares MD Attending Provider Active Team Status: Active Member Role Status Dates Dr. Lizet Linares MD Primary Care Provider Active Lizet Linares MD Attending Provider Active Team Status: Inactive Member Role Status Dates Dr. Lizet Linares MD Primary Care Provider Active Dr. Adebayo Camp MD Attending Provider, Emergency Provider Active Team Status: Active Member Role Status Dates Dr. Lizet Linares MD Primary Care Provider Active Ana Maria Geller NP RECEPTIONIST AIRLINE LOUNGE-C Attending Provider Active Team Status: Inactive Member Role Status Dates Dr. Lizet Linares MD Primary Care Provider Active Ana Maria NOLASCO NP-C Attending Provider Active Team Status: Inactive Member Role Status Dates Dr. Ganesh Garcia MD Primary Care Provider Active Ganesh NOLASCO MD Attending Provider Active Team Status: Inactive Member Role Status Dates Dr. Lizet Linares MD Primary Care Provider Active Lizet NOLASCO MD Attending Provider Active Team Status: Active Member Role Status Dates Dr. Lizet Linares MD Primary Care Provider Active Lizet NOLASCO MD Attending Provider Active Team Status: Active Member Role Status Dates Dr. Lizet Linares MD Primary Care Provider Active Ganesh NOLASCO MD Attending Provider Active Team Status: Inactive Member Role Status Dates Dr. Lizet Linares MD Primary Care Provider Active Dr. Olena Govea DO Emergency Provider Active Team Status: Inactive Member Role Status Dates Dr. Lizet Linares MD Primary Care Provider Active Dr. Bronson Retana MD Emergency Provider Active Team Status: Active Member Role Status Dates Dr. Lizet Linares MD Primary Care Provider Active Ganesh NOLASCO MD Attending Provider, Referring Pr ovider Active Team Status: Inactive Member Role Status Dates Dr. Lizet Linares MD Primary Care Provider Active Dr. Olena Govea DO Attending Provider, Emergency Pro vider Active Team Status: Inactive Member Role Status Dates Dr. Lizet Linares MD Primary Care Provider Active Dr. Bronson Retana MD Attending Provider, Emergency Pro vider Active Team Status: Inactive Member Role Status Dates Dr. Lizet Linares MD Primary Care Provider Active Ganesh NOLASCO MD Attending Provider, Referring Pr ovider Active Team Status: Active Member Role Status Dates Dr. Lizet Linares MD Primary Care Provider Active Ana Maria Geller RECEPTIONIST AIRLINE LOUNGE, RECEPTIONIST AIRLINE LOUNGE-C Attending Provider, Referring Provider Active Team Status: Inactive Member Role Status Dates Dr. Lizet Linares MD Primary Care Provider Active Ana Maria Geller RECEPTIONIST AIRLINE LOUNGE, RECEPTIONIST AIRLINE LOUNGE-C Attending Provider, Referring Provider Active Team Status: Inactive Member Role Status Dates Dr. Lizet Linares MD Primary Care Provider Active Dr. Marck Dunn DO Emergency Provider Active Team Status: Inactive Member Role Status Dates Dr. Lizet Linares MD Primary Care Provider Active Ganesh NOLASCO MD Attending Provider Active Reel Cart Operator Relationship Specialty Start Date End Date Dwayne Lopez MD [address] [place], [place] [id number] PCP - General Family Medicine 03/24/23 Team Status: Inactive Member Role Status Dates Dr. Ganesh Garcia MD Referring Provider Active Miriam Cameron RECEPTIONIST AIRLINE LOUNGE, RECEPTIONIST AIRLINE LOUNGE-C Attending Provider Active Dr. Lizet Linares MD Primary Care Provider Active Team Status: Inactive Member Role Status Dates Dr. Lizet Linares MD Primary Care Provider Active Dr. Marck Dunn DO Attending Provider, Emergency P rovider Active Team Status: Inactive Member Role Status Dates Dr. Lizet Linares MD Primary Care Provider Active Dr. Jacqueline Renteria MD Attending Provider, Referring Pr ovider Active Team Status: Inactive Member Role Status Dates Dr. Lizet Linares MD Primary Care Provider Active Ellis Peterson MD Emergency Provider Active Reel Cart Operator Relationship Specialty Start Date End Date Dwayne Lopez MD [address] [place] [address] PCP - General Family Medicine 03/24/23 Reel Cart Operator Relationship Specialty Start Date End Date Dwayne Lopez MD [address] [place] [address] PCP - General Family Medicine 03/24/23 Reel Cart Operator Relationship Specialty Start Date End Date Dwayne Lopez MD [address] [place] [address] PCP - General Family Medicine 03/24/23 Reel Cart Operator Relationship Specialty Start Date End Date Dwayne Lopez MD [address] [place] [address] PCP - General Family Medicine 03/24/23 Reel Cart Operator Relationship Specialty Start Date End Date Dwayne Lopez MD [address] [place] [address] PCP - General Family Medicine 03/24/23 Reel Cart Operator Relationship Specialty Start Date End Date Dwayne Lopez MD [address] [place] [address] PCP - General Family Medicine 03/24/23 Reel Cart Operator Relationship Specialty Start Date End Date Dwayne Lopez MD [address] [place] [address] PCP - General Family Medicine 03/24/23 Team Status: Active Member Role Status Dates Dr. Carlee Valencia III, MD Family Provider Active Dr. Jarred Lopez MD Primary Care Provider Acti ve Team Status: Inactive Member Role Status Dates Dr. Lziet Linares MD Primary Care Provider Active Ellis Peterson MD Attending Provider, Emergency Provid er Active Team Status: Inactive Member Role Status Dates Dr. Jarred Lopez MD Primary Care Provider Acti ve Dr. Bronson Retana MD Emergency Provider Active Team Status: Inactive Member Role Status Dates Dr. Jarred Lopez MD Primary Care Provider Acti ve Dr. Bronson Retana MD Attending Provider, Emergency Pro vider Active Team Status: Inactive Member Role Status Dates Dr. Jarred Lopez MD Primary Care Provider Acti ve Dr. Raisa Mc MD Emergency Provider Active Reel Cart Operator Relationship Specialty Start Date End Date Dwayne Lopez MD [address] [place] [place] [address] PCP - General Family Medicine 03/24/23 Reel Cart Operator Relationship Specialty Start Date End Date Dwayne Lopez MD [address] [place] [place] [address] PCP - General Family Medicine 03/24/23 Reel Cart Operator Relationship Specialty Start Date End Date Dwayne Lopez MD [address] [facility] [place] [address] PCP - General Family Medicine 03/24/23 Reel Cart Operator Relationship Specialty Start Date End Date Dwayne Lopez MD [address] [place] [place] [address] PCP - General Family Medicine 03/24/23 Team Status: Active Member Role Status Dates Dr. Jarred Lopez MD Primary Care Provider Acti ve Dr. Zack Choi DO Emergency Provider Active Dr. John Shaw MD Admit Provider, At tending Provider, Other Provider Active Team Status: Active Member Role Status Dates Dr. Jarred Lopez MD Primary Care Provider Acti ve Dr. Zack Choi DO Emergency Provider Active Dr. John Shaw MD Admit Provider, Attending Provid er Active Team Status: Active Member Role Status Dates Dr. Jarred Lopez MD Primary Care Provider Acti ve Dr. Zack Choi DO Emergency Provider Active Dr. John Shaw MD Admit Provider, Other Provider A ctive Dr. Paresh Hernandez , DO Attending Provider, Other Pro vider Active Team Status: Inactive Member Role Status Dates Dr. Jarred Lopez MD Primary Care Provider Acti ve Dr. Zack Choi , Emergency Provider Active Dr. John Shaw MD Admit Provider, Other Provider A ctive Dr. Paresh Hernandez , DO Attending Provider Active Team Status: Active Member Role Status Dates Dr. Jarred Lopez MD Primary Care Provider Acti ve Lizet NOLASCO MD Attending Provider Active Team Status: Active Member Role Status Dates Dr. Jarred Lopez MD Primary Care Provider Acti ve Dr. Raisa Mc MD Emergency Provider Active Dr. Hansa Cast MD Admit Provider, Attending Prov ider Active Team Status: Active Member Role Status Dates Dr. Jarred Lopez MD Primary Care Provider Acti ve Dr. Raisa Mc MD Emergency Provider Active Dr. Hansa Cast MD Admit Provider, Other Provider Active Dr. Chavez Alcala DO Attending Provider, Other Provider Active Team Status: Active Member Role Status Dates Dr. Jarred Lopez MD Primary Care Provider Acti ve Dr. Juan Valencia MD Attending Provider Active Team Status: Active Member Role Status Dates Dr. Jarred Lopez MD Primary Care Provider Acti ve Dr. Cat Guadarrama MD Attending Provider Activ e Team Status: Inactive Member Role Status Dates Dr. Jarred Lopez MD Primary Care Provider Acti ve Lizet NOLASCO MD Attending Provider Active Team Status: Active Member Role Status Dates Dr. Jarred Lopez MD Primary Care Provider Acti ve Dr. Raisa Mc MD Emergency Provider Active Dr. Hansa Cast MD Admit Provider, Other Provider Active Dr. Ana Rivera DO Attending Provider Active Dr. Chavez Alcala , Other Provider Active Team Status: Active Member Role Status Dates Dr. Jarred Lopez MD Primary Care Provider Acti ve Dr. Raisa Mc MD Emergency Provider Active Dr. Hansa Cast MD Admit Provider, Other Provider Active Dr. Ana Rivera DO Attending Provider, Other Provide r Active Dr. Chavez Alcala , Other Provider Active Team Status: Inactive Member Role Status Dates Dr. Jarred Lopez MD Primary Care Provider Acti ve Dr. Raisa Mc MD Emergency Provider Active Dr. Hansa Cast MD Admit Provider, Other Provider Active Dr. Ana Rivera , Attending Provider Active Dr. Chavez Alcala , DO Other Provider Active Team Status: Active Member Role Status Dates Dr. Jarred Lopez MD Primary Care Provider Acti ve Dr. Juan Valencia MD Attending Provider Active Dr. Chavez Alcala , DO Referring Provider Active Team Status: Inactive Member Role Status Dates Dr. Jarred Lopez MD Primary Care Provider Acti ve Dr. Lizet Linares MD Attending Provider Active Team Status: Inactive Member Role Status Dates Dr. Jarred Lopez MD Primary Care Provider Acti ve Ana Maria Geller RECEPTIONIST AIRLINE LOUNGE, RECEPTIONIST AIRLINE LOUNGE-C Attending Provider Active Team Status: Inactive Member Role Status Dates Dr. Jarred Lopez MD Primary Care Provider Acti ve Ellis Peterson MD Emergency Provider Active Reel Cart Operator Relationship Specialty Start Date End Date Dwayne Lopez MD [address] [place] [address] PCP - General Family Medicine 03/24/23 Reel Cart Operator Relationship Specialty Start Date End Date Dwayne Lopez MD [address] [place], [place] [id number] PCP - General Family Medicine 03/24/23 Team Status: Active Member Role Status Dates Dr. Jarred Lopez MD Primary Care Provider Acti ve Lizet NOLASCO MD Attending Provider, Referring Provider Active Team Status: Inactive Member Role Status Dates Dr. Jarred Lopez MD Primary Care Provider Acti ve Ellis Peterson MD Attending Provider, Emergency Provid er Active Team Status: Inactive Member Role Status Dates Dr. Jarred Lopez MD Primary Care Provider Acti ve Lizet NOLASCO MD Attending Provider, Referring Provider Active Reel Cart Operator Relationship Specialty Start Date End Date Dwayne Lopez MD [address] [place] [address] PCP - General Family Medicine 03/24/23 Reel Cart Operator Relationship Specialty Start Date End Date Dwayne Lopez MD [address] [place], [place] [address] PCP - General Family Medicine 09/08/24 Reel Cart Operator Relationship Specialty Start Date End Date Dwayne Lopez MD [address] [place], [place] [address] PCP - General Family Medicine 09/08/24 [place] [place] APRN.PRACTICE ARCHITECT [address] [place], [place] [address] Commercial Lending Assistant Family Medicine 09/30/24 Reel Cart Operator Relationship Specialty Start Date End Date Dwayne Lopez MD [address] [place] [address] PCP - General Family Medicine 09/08/24 AnastasiaarJesica, HOSE CEMENTER.PRACTICE ARCHITECT [address] [place] [address] Commercial Lending Assistant Family Medicine 09/30/24 Annabel Rivas APRN.PRACTICE ARCHITECT [address] [place], [place] [id number] Commercial Lending Assistant Family [facility] 01/05/25 Team Status: Active Member Role Status Dates Dr. Lizet Linares MD Primary Care Provider Active Team Status: Inactive Member Role Status Dates Dr. Lizet Linares MD Primary Care Provider Active Start: September 26, 2024 End: September 27, 2024 Dr. Lizet Linares MD Attending Provider Active Start: September 26, 2024 End: September 27, 2024 Team Status: Inactive Member Role Status Dates Dr. Lizet Linares MD Primary Care Provider Active Start: September 29, 2024 End: September 29, 2024 Lizet NOLASCO MD Attending Provider Active Start: September 29, 2024 End: September 29, 2024 Team Status: Active Member Role Status Dates Dr. Lizet Linares MD Primary Care Provider Active Start: October 06, 2024 Lizet NOLASCO MD Attending Provider Active Start: October 06, 2024 Team Status: Inactive Member Role Status Dates Dr. Lizet Linares MD Primary Care Provider Active Start: October 06, 2024 End: October 06, 2024 Dr. Lizet Linares MD Attending Provider Active Start: October 06, 2024 End: October 06, 2024 Dr. Lizet Linares MD Referring Provider Active Start: October 06, 2024 End: October 06, 2024 Team Status: Active Member Role Status Dates Dr. Lizet Linares MD Primary Care Provider Active Start: October 13, 2024 Lizet NOLASCO MD Attending Provider Active Start: October 13, 2024 Lizet NOLASCO MD Referring Provider Active Start: October 13, 2024 Team Status: Active Member Role Status Dates Dr. Lizet Linares MD Primary Care Provider Active Start: October 20, 2024 Lizet NOLASCO MD Attending Provider Active Start: October 20, 2024 Team Status: Inactive Member Role Status Dates Dr. Lizet Linares MD Primary Care Provider Active Start: October 24, 2024 End: October 24, 2024 Dr. Salvador Campbell DO Attending Provider Active Start: October 24, 2024 End: October 24, 2024 Dr. Salvador Campbell DO Emergency Provider Active Start: October 24, 2024 End: October 24, 2024 Team Status: Active Member Role Status Dates Dr. Lizet Linares MD Primary Care Provider Active Start: October 27, 2024 Lizet NOLASCO MD Attending Provider Active Start: October 27, 2024 Team Status: Inactive Member Role Status Dates Dr. Lizet Linares MD Primary Care Provider Active Start: October 27, 2024 End: October 27, 2024 Ana Maria Tickton RECEPTIONIST AIRLINE LOUNGE, RECEPTIONIST AIRLINE LOUNGE-C Attending Provider Active Start: October 27, 2024 End: October 27, 2024 Team Status: Inactive Member Role Status Dates Dr. Lizet Linares MD Primary Care Provider Active Start: November 01, 2024 End: November 01, 2024 Lizet NOLASCO MD Attending Provider Active Start: November 01, 2024 End: November 01, 2024 Team Status: Active Member Role Status Dates Dr. Lizet Linares MD Primary Care Provider Active Start: November 03, 2024 Lizet NOLASCO MD Attending Provider Active Start: November 03, 2024 Team Status: Inactive Member Role Status Dates Dr. Lizet Linares MD Primary Care Provider Active Start: November 10, 2024 End: November 10, 2024 Lizet NOLASCO MD Attending Provider Active Start: November 10, 2024 End: November 10, 2024 Team Status: Inactive Member Role Status Dates Dr. Lizet Linares MD Primary Care Provider Active Start: November 17, 2024 End: November 17, 2024 Lizet NOLASCO MD Attending Provider Active Start: November 17, 2024 End: November 17, 2024 Team Status: Active Member Role Status Dates Dr. Lizet Linares MD Primary Care Provider Active Start: November 24, 2024 Lizet NOLASCO MD Attending Provider Active Start: November 24, 2024 Team Status: Inactive Member Role Status Dates Dr. Lizet Linares MD Primary Care Provider Active Start: November 28, 2024 End: November 28, 2024 Dr. Lizet Linares MD Attending Provider Active Start: November 28, 2024 End: November 28, 2024 Team Status: Active Member Role Status Dates Dr. Lizet Linares MD Primary Care Provider Active Start: November 30, 2024 Lizet NOLASCO MD Attending Provider Active Start: November 30, 2024 Team Status: Active Member Role Status Dates Dr. Lizet Linares MD Primary Care Provider Active Start: December 07, 2024 Lizet NOLASCO MD Attending Provider Active Start: December 07, 2024 Team Status: Active Member Role Status Dates Dr. Lizet Linares MD Primary Care Provider Active Start: January 05, 2025 Lizet NOLASCO MD Attending Provider Active Start: January 05, 2025 Team Status: Inactive Member Role Status Dates Dr. Lizet Linares MD Primary Care Provider Active Start: January 22, 2025 End: January 22, 2025 Dr. Zack Choi DO Emergency Provider Active Start: January 22, 2025 End: January 22, 2025 Team Status: Inactive Member Role Status Dates Dr. Lizet Linares MD Primary Care Provider Active Start: January 04, 2025 End: January 04, 2025 Claude REYNOLDS PA Attending Provider Active St art: January 04, 2025 End: January 04, 2025 Team Status: Inactive Member Role Status Dates Dr. Lizet Linares MD Primary Care Provider Active Start: January 05, 2025 End: January 05, 2025 Lizet NOLASCO MD Attending Provider Active Start: January 05, 2025 End: January 05, 2025 Team Status: Inactive Member Role Status Dates Dr. Lizet Linares MD Primary Care Provider Active Start: January 22, 2025 End: January 22, 2025 Dr. Zack Choi DO Attending Provider Active Start: January 22, 2025 End: January 22, 2025 Dr. Zack Choi DO Emergency Provider Active Start: January 22, 2025 End: January 22, 2025 Team Status: Inactive Member Role Status Dates Dr. Lizet Linares MD Primary Care Provider Active Start: January 22, 2025 End: January 22, 2025 Ana Maria Geller RECEPTIONIST AIRLINE LOUNGE, RECEPTIONIST AIRLINE LOUNGE-C Attending Provider Active Start: January 22, 2025 End: January 22, 2025 Reel Cart Operator Relationship Specialty Start Date End Date Dwayne Lopez MD [address] [place] [address] PCP - General Family Medicine 09/08/24 TrulogarJesica APRN.PRACTICE ARCHITECT [address] [place] [address] [facility] 09/30/24 Annabel Rivas APRN.PRACTICE ARCHITECT [address] [place] [address] [facility] 01/15/25 Reel Cart Operator Relationship Specialty Start Date End Date Dwayne Lopez MD [address] [place] [address] PCP - General Family Medicine 09/08/24 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 APRN.PRACTICE ARCHITECT [address] [place] [address] [facility] 09/30/24 Annabel Rivas APRN.PRACTICE ARCHITECT [address] [place] [address] [facility] 01/15/25 Reel Cart Operator Relationship Specialty Start Date End Date Dwayne Lopez MD [address] [place], [place] [id number] PCP - General Family Medicine 09/08/24 PodselamarJesica APRN.PRACTICE ARCHITECT [address] [place] [address] [facility] 09/30/24 FOR RECORDS PERTAINING TO PATIENTS WHO ARE [...] BE BASED ON THE PRIMARY CLINICAL RECORDS. [facility], [facility]. provides no warranty or guarantee of the accuracy or completeness of information in this document.
[2025-04-06 13:10] LABS: Hemoglobin A1c 10.5 % (<=5.6)
== END ==
LOC: OLS.WHLEAS 05:00
PROVIDERS: PCP Internal Medicine; Visit Provider Internal Medicine
DX: E11.42 Type 2 diabetes mellitus with diabetic polyneuropathy (principal); E11.22 Type 2 diabetes mellitus with diabetic chronic kidney disease; I12.9 Hypertensive chronic kidney disease with stage 1 through stage 4 chronic kidney disease, or unspecified chronic kidney disease; N18.31 Chronic kidney disease, stage 3a; E03.9 Hypothyroidism, unspecified
CPT/HCPCS: 36415; 83036

== ENCOUNTER → 2025-04-12 14:50 | Outpatient (REF) | payer MEDICARE, MEDICAID, SELFPAY | LOC: OLS.WHLEAS 14:50 | PROVIDERS: PCP Internal Medicine; Visit Provider Internal Medicine | DX: L20.84 Intrinsic (allergic) eczema (principal) | CPT/HCPCS: 87070; 87077; 87186; 87205 ==

== ENCOUNTER → 2025-04-25 | Outpatient (REF) | payer MEDICARE, SELFPAY ==
--- OUTSIDE RECORDS SUMMARY | 2025-04-25 04:53 | XMS RPT_ITS | CCD ---
Author Organization [facility] Care Team Providers Care Guest House Manager Name Role Phone SIXTO CALIXTO Unavailable Unavailable SIXTO CALIXTO Unavailable Unavailable CELILCARLEE Unavailable Unavailable Wil CATSANO, Angelika Cross Unavailable Unavailab le Calixto, Tj [...] Unavail able Dr. Kathia Shine Attending Provider Dr. Ramez Prieto Attending Provider Dr. Ramez Prieto Other Provider FRANSISCO Eng NP Attending Provider Unavailable Primary Care Provider UnavailDr. Ana Mckeon Attending Provider Dr. Ana Rivera Other Provider Dr. Bronson Retana Emergency Provider [phone] Sementi, Dr. Yanna Stern Admit Provider Semenrose, Dr. Yanna Stern Attending Provider Luis Felipe, Dr. Yanna Stern Other Provider Dr. Mian Lee Attending Provider Dr. Ganesh Garcia Primary Care Provider Yimi PLASTICS REPAIRER, JED-C Ana Maria Attending Provider Unav Dr. Scott Salamanca Referring Provider Dr. Tip Hamilton Emergency Provider Serene, Dr. Hansa Abdullahi Admit Provider Dr. Hansa Cast Other Provider Dr. Júnior Lombardo Attending Provider Dr. Júnior Lombardo Other Provider Miriam Cote Attending Provider Unavailable Dr. Ganesh Garcia Referring Provider Rakesh ADKINS, JED-Zeus Pineda Attending [...] Provider Dr. Ganesh Garcia Referring Provider Rakesh PLASTICS REPAIRER, PLASTICS REPAIRER-C Miriam Attending Provider Dr. Ganesh Garcia Primary Care Provider Dr. Ganesh Garcia Primary Care Provider Dr. Ganesh Garcia Referring Provider Rakesh PLASTICS REPAIRER, PLASTICS REPAIRER-C Miriam Attending Provider Dr. Lizet Linares Primary Care Provider [phone] Yimi PLASTICS REPAIRER, PLASTICS REPAIRER-C Ana Maria Attending Provider Cynthiav Dr. Lizet Coronel Attending Provider [phone] Yimi OLS, PLASTICS REPAIRER-C Ana Maria Attending Provider [phone] Unavailable Primary Care Provider [facility] Dr. Lizet Chung Primary Care Provider Yimi PLASTICS REPAIRER, PLASTICS REPAIRER-C Ana Maria Attending Provider Unav Dr. Lizet Coronel Attending Provider [phone] Yimi NOLASCO, PLASTICS REPAIRER-C Ana Maria Attending Provider [phone] Dwayne Lopez MD Primary Care Provider Dr. Lizet Linares Primary Care Provider [phone] Yimi PLASTICS REPAIRER, PLASTICS REPAIRER-C Ana Maria Attending Provider Unav Dr. Lizet Coronel Attending Provider [phone] Dr. Ganesh Garcia Referring Provider Rakesh PLASTICS REPAIRER, PLASTICS REPAIRER-C Miriam Attending Provider Dr. Lizet Linares Primary Care Provider [phone] Dr. Lizet Linares Attending Provider [phone] Yimi PLASTICS REPAIRER, PLASTICS REPAIRER-C Ana Maria Attending Provider Unav Dr. Jarred Avila Primary Care Provider Dr. Zack Choi Emergency Provider Dr. John Shaw Admit Provider Unavailable Colin, Dr. Lopez Attending Provider Unavailable Colin, Dr. Lopez Other Provider Unavailable David, Dr. Yoder Attending Provider Terlula, Dr. Yoder Other Provider Dr. Jarred Lopez Primary Care Provider [phone] Dr. Zack Choi Emergency Provider Colin, Dr. Lopez Admit Provider Unavailable [place], Dr. Lopez Attending Provider Unavailable Colin, Dr. Lopez Other Provider Unavailable David, Dr. Yoder Attending Provider David, Dr. Yoder Other Provider Dr. Raisa cM Emergency Provider Dr. Hansa Cast Admit Provider [...] Provider Dr. Ana Rivera Other Provider Yimi PLASTICS REPAIRER, PLASTICS REPAIRER-C Ana Maria Attending Provider Dr. Lizet Linares Attending Provider Dr. Chavez Alcala Referring Provider Dwayne Lopez MD Primary Care Provider Unavailable Primary Care Provider Unavailabl e Dwayne Lopez MD Primary Care Provider Podlogar CARE AIDE.DEYANIRA, Jesica Unavailable Knoble CARE AIDE.DIGITAL COLOR PRESS OPERATOR, Annabel Unavailable Dr. Lizet Linares MD Primary Care Provider Dr. Lizet Linares MD Attending Provider [phone] Lizet Linares MD Attending Provider UnavailDr. Lizet Plummer MD Referring Provider [phone] Lizet Linares MD Referring Provider UnavailDr. Salvador Min DO Attending Provider Dr. Salvador Campbell DO Emergency Provider Yimi ADKINS-CAna Maria Attending Provider Dr. Zack Choi DO Emergency Provider Dr. Lizet Linares MD Primary Care Provider Dr. Lizet Linares MD Attending Provider Claude Cain Attending Provider Dr. Zack Choi DO Attending Provider Kngrisel CARE AIDE.DIGITAL COLOR PRESS OPERATOR, Annabel Unavailable Dr. Lizet Linares MD Primary Care Provider Milagros SANTANA Dr. Efewongbe Attending Provider [phone] Lizet Linares MD Attending Provider Unavaila Claude Rivera Attending Provider Dr. Zack Choi DO Attending Provider Dr. Zack Choi DO Emergency Provider Ymii ADKINS-CAna Maria Attending Provider Dr. Lizet Linares MD Referring Provider [phone] Shonda Glover Attending Provider Yimi ADKINS-Ana Maria Schulz Attending Provider Lizet Linares MD Referring Provider Unavailjosé manuel Rivas APRN.Annabel MCMILLAN Unavailable Sabrina, Napoleon Attending Unavailable Oleghe, Efewongbe Referring Unavailable Oleghe, Efewongbe Primary Care Unavailable Oleghe, Efewongbe Primary Care Unavailable Oleghe OLSJunieewjanellbe Attending Unavailabl e Oleghe OLS Efewongbe Attending Unavailabl e Oleghe, Efewongbe Primary Care Unavailable Oleghe, Efewongbe Primary Care Unavailable Oleghe OLS Efchristaongbe Attending Unavailabl e Oleghe OLS, Efewongbe Attending Unavailabl e Oleghe, Efewongbe Primary Care Unavailable Oleghe OLS, Efewongbe Attending Unavailabl e Oleghe, Efewongbe Primary Care Unavailable Oleghe, Efewongbe Attending Unavailable Oleghe, Efewongbe Primary Care Unavailable Sumit Urbina Attending Unavailable Oleghe, Efewongbe Primary Care Unavailable Oleghe, Efewongbe Referring Unavailable Oleghe, Efewongbe Primary Care Unavailable Zack Choi Attending Unavailable Oleghe, Efewongbe Primary Care Unavailable Oleghe, Efewongbe Attending Unavailable Oleghe, Efewongbe Referring Unavailable BasaliGaurangman Attending Unavailable Basali Ayman Referring Unavailable Bursley, Jarred Primary Care Unavailable Oleghe OLS Efewongbe Attending Unavailabl e Bursley, Jarred Primary Care Unavailable Oleghe, Efewongbe Primary Care Unavailable Oleghe OLS, Efewongbe Attending Unavailabl e Oleghe, Efewongbe Primary Care Unavailable Oleghe OLS, Efewongbe Attending Unavailabl e Oleghe OLS, Efewongbe Attending Unavailabl e Bursley, Jarred Primary Care Unavailable Oleghe, Efewongbe Primary Care Unavailable Oleghe OLS, Efewongbe Attending Unavailabl e Oleghe, Efewongbe Primary Care Unavailable [facility] PLASTICS REPAIRER, Ana Maria Attending Unavailable Oleghe, Efewongbe Primary [...] Efewongbe Attending Unavailabl e Oleghe OLS, Efewongbe Referring Unavailabl e Oleghe, Efewongbe Primary Care Unavailable Oleghe OLS, Efewongbe Attending Unavailabl e Oleghe, Efewongbe Primary Care Unavailable Oleghe OLS, Efewongbe Attending Unavailabl e Oleghe, Efewongbe Primary Care Unavailable [place] OLS, Ana Maria Attending Unavailable Oleghe, Efewongbe Primary Care Unavailable Oleghe OLS, Efewongbe Attending Unavailabl e Oleghe OLS, Efewongbe Referring Unavailabl e Oleghe OLS, Efewongbe Attending Unavailabl e Oleghe, Efewongbe Primary Care Unavailable Daniel Mari Attending Unavailable Daniel Mari Referring Unavailable Oleghe, Efewongbe Primary Care Unavailable Salvador Campbell Attending Unavailable Oleghe, Efewongbe Primary Care Unavailable Oleghe, Efewongbe Primary Care Unavailable Salvador Campbell Attending Unavailable Oleghe OLS, Efewongbe Attending Unavailabl [...] Efewongbe Attending Unavailabl e Oleghe OLS, Efewongbe Referring Unavailabl e Bursley, Jarred Primary Care Unavailable Adebayo Camp Attending Unavailable Oleghe, Efewongbe Primary Care Unavailable Raúl Alejo Attending Unavailable Oleghe, Efewongbe Primary Care Unavailable Oleghe OLS, Efewongbe Attending Unavailabl e Oleghe, Efewongbe Primary Care Unavailable [place] PLASTICS REPAIRER, Ana Maria Attending Unavailable Oleghe, Efewongbe Primary Care Unavailable Oleghe, Efewongbe Primary Care Unavailable Oleghe, Efewongbe Attending Unavailable Oleghe, Efewongbe Primary Care Unavailable [place] PLASTICS REPAIRER, Ana Maria Attending Unavailable Oleghe, Efewongbe Primary Care Unavailable Oleghe, Efewongbe Attending Unavailable Friend, Napoleon Attending Unavailable Friend, Napoleon Consulting Unavailable Oleghe, Efewongbe Referring Unavailable Oleghe, Efewongbe Primary Care Unavailable [place] PLASTICS REPAIRER, Ana Maria Attending Unavailable Oleghe, Efewongbe Primary Care Unavailable Oleghe, Efewongbe Attending Unavailable Oleghe, Efewongbe Primary Care Unavailable [place] PLASTICS REPAIRER, Ana Maria Attending Unavailable Oleghe, Efewongbe Primary Care Unavailable [place] PLASTICS REPAIRER, Ana Maria Attending Unavailable Oleghe, Efewongbe Primary Care Unavailable Oleghe, Efewongbe Primary Care Unavailable Claude Cain Attending Unavailable Oleghe, Efewongbe Primary Care Unavailable [place] PLASTICS REPAIRER, Ana Maria Attending Unavailable Oleghe, Efewongbe Primary Care Unavailable Shonda Chávez Attending Unavailabl e Oleghe, Efewongbe Referring Unavailable Oleghe, Efewongbe Primary Care Unavailable Oleghe, Efewongbe Attending Unavailable Oleghe, Efewongbe Primary Care Unavailable [place] PLASTICS REPAIRER, Ana Maria Attending Unavailable [place] PLASTICS REPAIRER, Ana Maria Attending Unavailable Oleghe, Efewongbe Primary Care Unavailable Gabrielle Arreguin Attending Unavailable Bursley, Jarred Referring Unavailable Bursley, Jarred Primary Care Unavailable Oleghe OLS, Efewongbe Attending Unavailabl e Oleghe OLS, Efewongbe Referring Unavailabl e Bursley, Jarred Primary Care Unavailable Oleghe, Efewongbe Primary Care Unavailable Oleghe OLS, Efewongbe Attending Unavailabl e Oleghe OLS, Efewongbe Attending Unavailabl e Bursley, Jarred Primary Care Unavailable Allergies Allergy Classification Reported Allergen(s) Allergy Type Date of Onset Reaction(s) Facility (20 sources) ciprofloxacin; Translations: [CIPROFLOXACIN] Drug Allergy 8 Swelling [facility] Repository (20 sources) codeine; Translations: [CODEINE] Drug Allergy 4 Hives, Itching [facility] Repository (20 sources) ibuprofen; Translations: [IBUPROFEN] Drug Allergy 7 Hives [facility] Repository (20 sources) metFORMIN; Translations: [METFORMIN] Drug Allergy 7 Intolerance [facility] Repository (20 sources) naproxen; Translations: [NAPROXEN] Drug Allergy 7 [facility] Repository (20 sources) Penicillins; Translations: [PENICILLINS] Propensity to adverse reactions (disorder) 7 [facility] Repository (20 sources) traMADol; Translations: [TRAMADOL HCL] Drug Allergy 7 [facility] Repository (1 source) Ciprofloxacin Drug Allergy 7 [facility] Work Phone: (1 source) Ketorolac Drug Allergy itching [facility] Work Phone: (1 source) Naproxen Drug [facility] Work Phone: (1 source) Penicillin V Drug Allergy hives [facility] Work Phone: (1 source) traMADol Drug Allergy face swells [facility] Work Phone: (20 sources) celecoxib Drug Allergy 0 Rash [facility] (20 sources) Ciprofloxacin; Translations: [ciprofloxacin HCl] Drug Allergy 2 Swelling [facility] (20 sources) Ketorolac Drug Allergy 9 GI Upset [facility] Work Phone: (1 source) celecoxib Drug Allergy 5 [facility] Repository (1 source) Ketorolac Drug Allergy 5 [facility] Repository Medications Current Medications Medication Drug Class(es) Dates Sig (Normalized) Sig (Original) acetaminophen 325 mg oral tablet (20 sources) Start: 11-24-2023 Acetaminophen 325 mg Tablet Active 650 mg PO EVERY 6 HOURS NEEDED as needed for Pain 1-10 Or Fever >100.7 0 November 24, 2023 1:00am Start: 11-24-2023 Start: 03-27-2022 End: 11-19-2023 take 2 tablets by mouth three times daily as needed for pain Acetaminophen 500 mg Tablet Discontinued 1000 mg PO THREE TIMES A DAY as needed for pain 0 March 27, 2022 12:00am November 19, 2023 11:26am Start: 03-27-2022 End: 11-19-2023 acetaminophen 325 mg / HYDROcodone bitartrate 5 mg oral tablet (20 sources) Opioid Agonist Start: 01-06-2023 take 1 tablet by mouth every four hours as needed Hydrocodone-Acetaminophen Active 1 TABLET PO EVERY 4 HOURS NEEDED 07 26January 06, 2023 Start: 01-06-2023 Start: 02-28-2021 End: 05-13-2021 Hydrocodone-Acetaminophen 1 TABLET tablet Discontinued 1 {tbl} PO EVERY 6 HOURS NEEDED as needed for Pain 12 February 28, 2021 May 13, 2021 10:49am Start: 02-28-2021 End: 05-13-2021 Start: 02-28-2021 End: 05-13-2021 Start: 02-28-2021 End: 05-13-2021 take 1 tablet by mouth every six hours as needed Hydrocodone-Acetaminophen Discontinued 1 TABLET PO EVERY 6 HOURS NEEDED 12 February 28, 2021 May 13, 2021 10:49am Start: 11-14-2019 End: 11-17-2019 Hydrocodone-Acetaminophen 1 EACH tablet Discontinued 1 NMA PO EVERY 4 HOURS NEEDED as needed for Pain Or Fever 10 November 14, 2019 November 16, 2019 1:00am November 17, 2019 1:08am Start: 11-14-2019 End: 11-17-2019 Start: 11-14-2019 End: 11-17-2019 Start: 11-14-2019 End: 11-17-2019 Hydrocodone-Acetaminophen Discontinued 1 EACH PO EVERY 4 HOURS NEEDED 07 27November 14, 2019 November 17, 2019 1:08am Start: 08-02-2019 End: 08-07-2019 Hydrocodone-Acetaminophen 1 TABLET tablet Discontinued 1 {tbl} PO EVERY 6 HOURS NEEDED as needed for Pain 07 27August 02, 2019 August 04, 2019 12:00am August 07, 2019 12:09am Start: 08-02-2019 End: 08-07-2019 Start: 08-02-2019 End: 08-07-2019 Start: 08-02-2019 End: 08-07-2019 take 1 tablet by mouth every six hours as needed Hydrocodone-Acetaminophen Discontinued 1 TABLET PO EVERY 6 HOURS NEEDED 07 27August 02, 2019 August 07, 2019 12:09am Start: 06-29-2019 End: 07-07-2019 Hydrocodone-Acetaminophen 1 TABLET tablet Discontinued 1 {tbl} PO EVERY 6 HOURS NEEDED as needed for Pain 6 2 June 29, 2019 June 30, 2019 12:00am July 07, 2019 12:10am Start: 06-29-2019 End: 07-07-2019 Start: 06-29-2019 End: 07-07-2019 Start: 06-29-2019 End: 07-07-2019 take 1 tablet by mouth every six hours as needed Hydrocodone-Acetaminophen Discontinued 1 TABLET PO EVERY 6 HOURS NEEDED 6 2 June 29, 2019 July 07, 2019 12:10am Start: 07-24-2018 End: 07-27-2018 Hydrocodone-Acetaminophen (N orco 5-325 Tablet) 1 EACH tablet Discontinued 1 - 2 NMA PO 4 TIMES DAILY NEEDED as needed for Pain 12 July 24, 2018 12:00am July 26, 2018 12:00am July 27, 2018 12:07am Start: 07-24-2018 End: 07-27-2018 Start: 07-24-2018 End: 07-27-2018 Start: 07-19-2018 End: 07-22-2018 Hydrocodone-Acetaminophen 1 TABLET tablet Discontinued 1 {tbl} PO EVERY 6 HOURS NEEDED as needed for Pain 10 July 19, 2018 12:00am July 21, 2018 12:00am July 22, 2018 12:08am Start: 07-19-2018 End: 07-22-2018 Start: 07-19-2018 End: 07-22-2018 Start: 07-19-2018 End: 07-22-2018 take 1 tablet by mouth every six hours as needed Hydrocodone-Acetaminophen Discontinued 1 TABLET PO EVERY 6 HOURS NEEDED 10 July 19, 2018 12:00am July 22, 2018 12:08am Start: 11-04-2015 End: 04-22-2016 Hydrocodone-Acetaminophen 1 TABLET tablet Discontinued 1 {tbl} PO THREE TIMES A DAY November 04, 2015 1:00am April 22, 2016 7:08am Start: 11-04-2015 End: 04-22-2016 Start: 11-04-2015 End: 04-22-2016 Start: 11-04-2015 End: 04-22-2016 take 1 tablet by mouth three times daily Hydrocodone-Acetaminophen Discontinued 1 TABLET PO THREE TIMES A DAY November 04, 2015 1:00am April 22, 2016 7:08am acetaminophen 325 mg / oxyCODONE hydrochloride 5 mg oral tablet (20 sources) Opioid Agonist Start: 01-30-2025 Oxycodone-Acet aminophen 5-325 mg tablet Active 1 {tbl} PO THREE TIMES A DAY as needed January 30, 2025 12:00am Start: 01-07-2023 take 1 tablet by dmitry th every four hours Oxycodone-Acetaminophen (Percocet) 5-325 mg tablet Active 1 TABLET PO Q4H 12 January 07, 2023 Start: 01-07-2023 Start: 10-19-2019 End: 10-22-2019 Oxycodone-Acetaminophen 1 TA BLET tablet Discontinued 1 {tbl} PO EVERY 6 HOURS NEEDED as needed for Pain 10 October 19, 2019 October 21, 2019 1:00am October 22, 2019 1:08am Start: 10-19-2019 End: 10-22-2019 Start: 10-19-2019 End: 10-22-2019 Start: 10-19-2019 End: 10-22-2019 take 1 tablet by mouth every six hours as needed Oxycodone-Acetaminophen Discontinued 1 TABLET PO EVERY 6 HOURS NEEDED 10 October 19, 2019 October 22, 2019 1:08am Start: 01-08-2019 End: 01-11-2019 Oxycodone-Acetaminophen 1 TA BLET tablet Discontinued 1 {tbl} PO EVERY 6 HOURS NEEDED as needed for Pain 12 January 08, 2019 12:00am January 10, 2019 12:00am January 11, 2019 12:08am Start: 01-08-2019 End: 01-11-2019 Start: 01-08-2019 End: [...] Factor Xa Inhibitor Start: 01-05-2024 End: 08-19-2024 take 1 tablet by mouth twice daily Apixaban (Eliquis) 5 mg Tablet Active 5 mg PO TWICE A DAY August 19, 2024 12:00am Start: 01-05-2024 End: 08-19-2024 take 2 tablets by mouth twice daily Apixaban (Eliquis) 5 mg Tablet Discontinued 10 mg PO TWICE A DAY 0 January 05, 2024 12:00am August 19, 2024 10:47pm ARIPiprazole 15 mg oral tablet (6 sources) [...] 2022 11:00pm bisacodyl 10 mg rectal suppository (3 sources) Stimulant Laxative Start: 4 Bisacodyl 10 mg suppository Active 10 mg RC DAILY as needed for constipation August 19, 2024 12:00am Blood-Glucose Meter (FREESTYLE LITE METER) monitoring kit (20 sources) Start: Blood-Glucose Meter (FREESTYLE LITE METER) monitoring kit [...] on above: Free style lite Insu linx carboxymethylcellulose sodium 10 mg/ml ophthalmic solution (1 source) Start : 01-30 take 1 drop(s) into the eye(s) three times daily Carboxymethylcellulose Sodium (Artificial Tears (Cmc)) 1 % drops Active 1 NMA OPHTHALMIC THREE TIMES A DAY January 30, 2025 12:00am cephalexin 500 mg oral capsule (8 sources) Cephalosporin Antibacterial Start : 10-09 take 500 mg by mouth three times daily Cephalexin Active 500 MG PO THREE TIMES A DAY 14 05October 09, 2022 12:00am Start: 09-27-2021 take 500 mg by mouth every six hours Cephalexin Active 500 MG PO EVERY 6 HOURS January 13, 2022 7:02pm citalopram 20 mg oral tablet (7 sources) Serotonin Reuptake Inhibitor Start: 01-30-2025 take 1 tablet by mouth once daily Citalopram 20 mg tablet Active 20 mg PO daily January 30, 2025 12:00am Start: 08-19-2024 End: 01-30-2025 take 1 tablet by mouth once daily Citalopram 10 mg tablet Discontinued 10 mg PO DAILY August 19, 2024 12:00am January 30, 2025 2:04pm Start: 06-20-2021 [facility] Citalopram (Celexa) 20 mg Tablet Active 20 MG PO DAILY June 20, 2021 6:19pm Start: 07-28-2017 CELEXA TABS as directed CITALOPRAM HYDROBROMIDE TABS [id number] Angelika De La Torre LPN clindamycin 300 mg oral capsule (1 source) Lincosamide Antibacterial Start: 04-23-2023 End: 04-30-2023 take 1 capsule by mouth three times daily clindamycin (CLEOCIN) 300 mg capsule Indications: Toothache Take 1 capsule by mouth three times daily for 7 days. 21 capsule 0 04/23/2023 04/30/2023 Active Comment on above: Take 1 capsule by mo [facility] three times daily for 7 days. cyclobenzaprine hydrochloride 10 mg oral tablet (5 sources) Muscle Relaxant Start: 03-24-2022 take 10 mg by mouth three times daily Cyclobenzaprine Active 10 MG PO THREE TIMES A DAY March 24, 2022 12:00am Start: 01-20-2012 End: 07-28-2017 take 1 tablet by mouth three times daily as needed FLEXERIL 10 MG TABS One tablet by mouth three times daily as needed CYCLOBENZAPRINE HCL [id number] Yaw Cabrera MD docusate sodium 50 mg / sennosides, fdc 8.6 mg oral tablet (20 sources) Start: 01-05-2024 Sennosides-Doc usate Sodium (Stool Softener-Stimulant Laxat) 8.6-50 mg Tablet Active 2 {tbl} PO TWICE DAILY NEEDED as needed for Constipation 0 January 05, 2024 12:00am Start: 01-05-2024 Start: 01-05-2024 Start: 03-27-2022 End: 11-19-2023 Sennosides-Docusate Sodium ( Stool Softener-Stimulant Laxat) 8.6-50 mg Tablet Discontinued 2 {tbl} PO TWICE A DAY 0 March 27, 2022 12:00am November 19, 2023 11:40am Start: 03-27-2022 End: 11-19-2023 Start: 03-27-2022 End: 11-19-2023 Dulaglutide (20 sources) GLP-1 Receptor Agonist Start: 08-19-2024 Dulaglu tide (Trulicity) 3 mg/0.5 mL pen injector Active 3 mg SC EVERY WEEK August 19, 2024 12:00am Start: 08-19-2024 Start: 03-24-2024 End: 08-19-2024 Dulaglutide (Trulicity) 1.5 mg/0.5 mL pen injector Discontinued 1.5 mg SC Q7D March 24, 2024 12:00am August 19, 2024 10:44pm MONDAYS Start: 03-24-2024 End: 08-19-2024 Start: 01-29-2023 End: 11-24-2023 Dulaglutide (Trulicity) 3 mg /0.5 mL pen injector Discontinued 3 mg SC January 29, 2023 12:00am November 24, 2023 3:09pm Start: 01-29-2023 End: 11-24-2023 Start: 01-29-2023 End: 11-24-2023 Dulaglutide (Trulicity) 3 mg /0.5 mL pen injector Discontinued 3 MG SC January 29, 2023 12:00am November 24, 2023 3:09pm Start: 01-29-2023 End: 11-24-2023 Dulaglutide (Trulicity) 3 mg /0.5 mL pen injector Discontinued 3 MG SC January 28, 2023 11:00pm November 24, 2023 2:09pm Start: 01-29-2023 Dulaglutide (T rulicity) 3 mg/0.5 mL pen injector Active 3 MG SC January 28, 2023 11:00pm Start: 01-29-2023 Dulaglutide [...] time a week. fenofibrate 160 mg oral tablet (20 sources) Peroxisome Proliferator Receptor alpha Agonist Start: take 1 tablet by mouth once daily Fenofibrate 160 mg tablet Active 160 mg PO DAILY August 19, 2024 12:00am Start: 01-29-2023 End: 08-19-2024 take 1 capsule by mouth at bedtime Fenofibrate 50 mg Capsule Discontinued 50 mg PO AT BEDTIME January 29, 2023 12:00am August 19, 2024 10:46pm Start: 01-29-2023 End: 08-19-2024 Start: 01-29-2023 fluticasone propionate 0.05 mg/actuat metered dose nasal spray (20 sources) Corticosteroid Start: 06-20-2024 take 50 ug nasal route once daily Fluticasone Propionate (Aller-Scar) 50 mcg/actuation spray,suspension Active 2 NMA INTRANASAL DAILY June 20, 2024 12:00am administer into each nostril Start: 08-10-2023 take 2 spray(s) by m out once daily fluticasone (FLONASE) 50 mcg/actuation nasal spray Use 2 Sprays in each nostril once daily. Rinse mouth after use. 1 Each 08/10/2023 Active Start: 03-12-2010 End: 07-28-2017 take 2 spray(s) nasal route once daily FLONASE 50 MCG/ACT SUSP 2spray/nostril daily FLUTICASONE PROPIONATE [id number] Angelika De La Torre LPN Comment on [...] unit/mL (3 mL) insulin pen Discontinued 30 U SC AT BEDTIME January 29, 2023 12:00am [...] 11-24-2023 Start: 12-10-2017 End: 06-23-2021 Insulin Glargine 100 UNIT/ML solution Discontinued 42 U SC AT BEDTIME December 10, 2017 2:38pm June 23, 2021 12:32pm Start: 06-14-2016 End: 06-23-2021 inject 16 [IU] by subcutaneous injection twice daily Insulin Glargine 100 UNIT/ML solution Discontinued 16 U SQ TWICE A DAY 0 March 20, 2017 9:43am December 10, 2017 2:39pm Start: 06-14-2016 End: 03-20-2017 inject 16 [IU] by subcutaneous injection at bedtime Insulin Glargine (Lantus) 100 UNIT/ML Ml Discontinued 16 U SQ AT BEDTIME June 14, 2016 12:00am March 20, 2017 9:43am Start: 08-14-2010 LANTUS SOLN 50 units at bedtime INSULIN GLARGINE SOLN [id number] Brenda Arthur MD Start: 03-10-2010 LANTUS SOLOSTA R SOPN 42 units at bedtimes INSULIN GLARGINE SOLN [id number] Jiakeren BIRD 42 u nits at bedtime INSULIN GLARGINE SOLN [id number] Brenda SCALES SOPN 32 units at bedtimes INSULIN GLARGINE SOLN [id number] Beth Doyle MA Comment on above: Inject [...] WITH BREAKFAST 0 November 24, 2023 12:00am Insulin Glargine-Yfgn 100 unit/mL (3 mL) Insulin Pen (5 sources) Start: 08-19-2024 Insulin Glargi ne-Yfgn 100 unit/mL (3 mL) Insulin Pen Active 48 U SC TWICE A DAY August 19, 2024 12:00am Start: 01-05-2024 End: 08-19-2024 Insulin Glargine-Yfgn 100 un it/mL (3 mL) Insulin Pen Discontinued 35 U SC AT BEDTIME 0 January 05, 2024 12:00am August 19, 2024 10:47pm Start: 01-05-2024 End: 08-19-2024 Insulin Glargine-Yfgn 100 un it/mL (3 mL) Insulin Pen Discontinued 35 U SC WITH BREAKFAST 0 January 05, 2024 12:00am August 19, 2024 10:45pm Start: 11-24-2023 End: 01-05-2024 Insulin Glargine-Yfgn 100 un it/mL (3 mL) Insulin Pen Discontinued 15 U SC AT BEDTIME 0 November 24, 2023 1:00am January 05, 2024 11:17am Start: 11-24-2023 End: 01-05-2024 Insulin Glargine-Yfgn 100 un it/mL (3 mL) Insulin Pen Discontinued 15 U SC WITH BREAKFAST 0 November 24, 2023 1:00am January 05, 2024 11:17am levothyroxine sodium 0.125 mg oral tablet (20 sources) l-Thyroxine Start: 08-19-2024 take 1 tablet by mouth once daily Levothyroxine 125 mcg tablet Active 125 ug PO DAILY August 19, 2024 12:00am Start: 06-12-2022 Start: 05-21-2022 End: 06-12-2022 take 1 tablet by mouth once daily Levothyroxine 150 mc g tablet Discontinued 150 ug PO DAILY May 21, 2022 12:00am June 12, 2022 2:18pm Start: 10-15-2020 End: 08-19-2024 take 1 tablet [...] SYNTHROID TABS as directed LEVOTHYROXINE SODIUM TABS [id number] Angelika De La Torre LPN Start: 02-22-2015 End: 03-19-2016 take 1 tablet by mouth once daily Levothyroxine 125 MC G tablet Discontinued 125 ug PO DAILY@0600 60 February 22, 2015 12:00am March 19, 2016 8:09pm Start: 08-14-2010 End: 07-28-2017 take 1 tablet by mouth once daily LEVOTHYROXINE SODIUM 75 MCG TABS One tablet by mouth daily LEVOTHYROXINE SODIUM [id number] Brenda Arthur MD Comment on above: Take 1 tablet by dmitry once daily. Take on empty stomach. For Thyroid. loperamide hydrochloride 2 mg oral capsule (20 sources) Opioid Agonist Start: take 1 capsule by mouth every six hours as needed Loperamide (Anti-Diarrheal (Loperamide)) 2 mg capsule Active 2 mg PO EVERY 6 HOURS as needed for loose stool April 02, 2024 12:00am Start: 11-19-2023 End: 11-24-2023 take 1 capsule by mouth every six hours as needed Loperamide (Anti-Diarrheal (Loperamide)) 2 mg capsule Discontinued 2 mg PO EVERY 6 HOURS as needed for loose stool November 19, 2023 1:00am November 24, 2023 3:09pm Start: 06-12-2022 take 2 mg by mouth [...] 2 mg by mouth a s needed. magnesium citrate 58.2 mg/ml oral solution (3 sources) Start: Magnesium Citrate (Citrate Of Magnesia) solution Active 150 mL PO NEEDED as needed for constipation August 19, 2024 12:00am Magnesium Hydroxide (1 source) Start: take 1 mL by mouth once daily as needed for constipation Magnesium Hydroxide (Dulcolax (Magnesium Hydroxide)) 400 mg/5 mL suspension Active 30 mL PO DAILY as needed for constipation August 19, 2024 12:00am melatonin 3 mg oral tablet (14 sources) Start: take 1 tablet by mouth at bedtime as needed Melatonin 3 mg Tablet Active 3 mg PO AT BEDTIME NEEDED as needed for Insomnia 0 November 24, 2023 1:00am Start: 11-24-2023 Start: 11-24-2023 24 hr metoprolol succinate 25 mg extended release oral tablet (20 sources) beta-Adrenergic Jorden Start: 05-21-2022 take 1 tablet by mouth once daily Metoprolol Succinate 25 mg Tablet Extended Release 24 Hr Active 25 mg PO DAILY May 21, 2022 12:00am Start: 03-10-2010 End: 07-28-2017 METOPROLOL TARTRATE 25 MG TA BS 1/2 tablet orally twice daily METOPROLOL TARTRATE [id number] Angelika De La Torre LPN nitroglycerin 0.4 mg sublingual tablet (20 sources) Nitrate Vasodilator Start: 06-20-2024 Nitroglyce rin 0.4 mg tablet, sublingual Active 0.4 mg SL Q5M as needed for chest pain June 20, 2024 12:00am do not exceed 3 doses per episode Start: 06-20-2024 Start: 09-09-2022 End: 11-24-2023 Nitroglycerin 0.4 mg tablet, sublingual Discontinued 0.4 mg SL every 5 to 15 minutes September 09, 2022 1:00am November 24, 2023 3:09pm Start: 09-09-2022 End: 11-24-2023 Start: 09-09-2022 End: 11-24-2023 Start: 09-09-2022 End: 11-24-2023 Nitroglycerin Discontinued 0 .4 MG SL every 5 to 15 minutes September 09, 2022 1:00am November 24, 2023 3:09pm ondansetron 4 mg disintegrating oral tablet (20 sources) Serotonin-3 Receptor Antagonist Start: 07-08-2024 End: 01-30-2025 take 1 tablet by mouth every eight hours as needed for nausea Ondansetron 4 mg tablet,disintegrating Active 4 mg PO EVERY 8 HOURS NEEDED as needed for Nausea October 24, 2024 1:00am Start: 03-24-2024 End: 04-02-2024 take 1 tablet by mouth every six hours as needed for nausea and vomiting Ondansetron 4 mg tablet,disintegrating Discontinued 4 mg PO EVERY 6 HOURS as needed for nausea and vomiting March 24, 2024 12:00am April 02, 2024 12:38pm Start: 03-24-2024 End: 08-19-2024 take 1 tablet by mouth every eight hours as needed for nausea and vomiting Ondansetron Hcl 4 mg tablet Discontinued 4 mg PO EVERY 8 HOURS NEEDED as needed for nausea and vomiting March 24, 2024 12:00am August 19, 2024 10:45pm Start: 03-24-2024 End: 04-02-2024 Start: 10-09-2022 End: 11-19-2023 take 1 tablet by mouth three times daily as needed for nausea and vomiting Ondansetron 4 mg tablet,disintegrating Discontinued 4 mg PO THREE TIMES A DAY as needed for nausea and vomiting October 09, 2022 4:34am November 19, 2023 11:39am pantoprazole 40 mg delayed release oral tablet (20 sources) Proton Pump Inhibitor Start: 06-12-2022 take 1 tablet by mouth once daily Pantoprazole 40 mg tablet,delayed release (DR/EC) Active 40 mg PO DAILY June 12, 2022 12:00am Start: 06-12-2022 End: 06-22-2023 take 1 tablet by mouth twice daily before mealtime pantoprazole DR (PROTONIX) 40 mg tablet Indications: Globus sensation , Gastroesophageal reflux disease, unspecified whether esophagitis present Take 1 tablet by mouth twice daily. Take on empty stomach, 1/2 hr before meal. 60 tablet 2 03/24/2023 Active Start: 06-03-2015 End: 12-10-2017 take 1 tablet by mouth once daily Pantoprazole 20 MG tablet Discontinued 20 mg PO DAILY June 03, 2015 12:00am December 10, 2017 2:37pm Comment on above: Take 1 tablet by [...] 200 MG PO THREE TIMES A DAY 03 26October 09, 2022 12:00am promethazine hydrochloride 25 mg oral tablet (3 sources) Phenothiazine Start: 06-20-2024 take 1 tablet by mouth every six hours as needed for nausea and vomiting Promethazine 25 mg tablet Active 25 mg PO EVERY 6 HOURS as needed for nausea and vomiting June 20, 2024 12:00am QUEtiapine 25 mg oral tablet (20 sources) Atypical Antipsychotic Start: 01-30-2025 take 1 tablet by mouth at bedtime Quetiapine 25 mg tablet Active 25 mg PO AT BEDTIME January 30, 2025 2:05pm Start: 01-29-2023 End: 01-30-2025 Quetiapine 25 mg tablet Disc ontinued 37.5 mg PO AT BEDTIME January 29, 2023 12:00am January 30, 2025 2:10pm Start: 01-29-2023 Start: 01-29-2023 Start: 01-29-2023 take [...] 09, 2022 12:00am Start: 06-20-2021 End: 09-09-2022 take 1 tablet by mouth at bedtime Quetiapine (Seroquel) 100 mg Tablet Discontinued 100 mg PO AT BEDTIME June 20, 2021 12:00am September 09, 2022 2:46pm Start: 06-20-2021 End: 09-09-2022 Start: 06-20-2021 End: 09-09-2022 12 hr ranolazine 500 mg extended release oral tablet (20 sources) Anti-anginal Start: 06-12-2022 take 1 tablet by mouth twice daily Ranolazine 500 mg tablet extended release 12 hr Active 500 mg PO TWICE A DAY 60 June 12, 2022 12:00am Remove Patch (3 sources) Start: 03-27-2022 apply [...] Take 1 tablet by dmitry once daily. (20 sources) Start: 08-19-2024 Start: 01-05-2024 End: 08-19-2024 Start: 01-05-2024 End: 08-19-2024 Start: 01-05-2024 Start: 11-24-2023 End: 01-05-2024 Start: 11-24-2023 End: 01-05-2024 Start: 11-24-2023 End: 01-01-2024 Start: 04-24-2022 End: 11-19-2023 Start: 06-23-2021 End: 11-24-2023 Start: 06-23-2021 Completed/Discontinued Medications Medication Drug Class(es) Dates Sig (Normalized) Sig (Original) ALPRAZolam 0.5 mg oral tablet (20 sources) Benzodiazepine Start: 03-20-2022 End: 11-30-2022 take 1 tablet by mouth twice daily Alprazolam 0.5 mg tablet Discontinued 0.5 mg PO TWICE A DAY June 12, 2022 2:49pm November 30, 2022 2:09pm Start: 03-20-2022 End: 11-30-2022 take 1 tablet by mouth once daily Alprazolam 0.5 mg tablet Discontinued 0.5 mg PO DAILY June 09, 2022 4:15pm June 12, 2022 2:55pm End: 08-14-2010 XANAX 0.5 MG TABS 2 tablets once daily as needed for anxiety attacks ALPRAZOLAM [id number] Beth K Angle MA Alum-Mag Hydroxide-Simeth (Mylanta Maximum Strength) 400-400-40 mg/5 mL Suspension (4 sources) Start: 04-24-2022 End: 11-19-2023 take 1 mL by mouth every four hours as needed Alum-Mag Hydroxide-Simeth (Mylanta Maximum Strength) 400-400-40 mg/5 mL Suspension Discontinued 15 mL PO Q4H as needed for Stomach Upset April 24, 2022 12:00am November 19, 2023 [...] Nonsteroidal Anti-inflammatory Drug Start: 05-21-2022 End: 11-19-2023 Aspirin (Constance Low Dose Aspirin) 81 mg tablet,delayed release (DR/EC) Discontinued 81 mg PO DAILY May 21, 2022 12:00am November 19, 2023 11:37am Start: 06-29-2019 aspirin 81 mg chewable tablet DAILY@0800 06/29/2019 Active End: 07-28-2017 take 1 tablet by mouth once daily ASPIRIN LOW DOSE 81 MG TABS one tablet by mouth daily ASPIRIN [id number] Brenda Arthur MD Comment on above: DAILY@0800 azithromycin 250 mg oral tablet (1 source) Macrolide Antimicrobial Start: AZITHROMYCIN 250 MG TABS 2 tablets today, then 1 tablet daily on days 2 through 11 AZITHROMYCIN [id number] Michael REYNOLDS 168 hr buprenorphine 0.02 mg/hr transdermal system (6 sources) Partial Opioid Agonist Start: 024 End: 025 apply 20 ug topically every week Buprenorphine 20 mcg/hour patch weekly Discontinued 1 NMA TOPICAL EVERY WEEK August 19, 2024 12:00am January 30, 2025 2:08pm Start: 03-24-2024 End: 08-19-2024 apply 10 ug topically every week Buprenorphine 10 mcg/ hour patch weekly Discontinued 1 NMA TOPICAL EVERY WEEK March 24, 2024 12:00am August 19, 2024 10:46pm FRIDAYS busPIRone hydrochloride 10 mg oral tablet (2 sources) Start: 03-10-2010 End: 08-14-2010 take 1 tablet by mouth twice daily BUSPAR 10 MG TABS One tablet by mouth twice daily BUSPIRONE HCL [id number] Brenda Arthur MD cholecalciferol 0.05 mg chewable tablet (6 sources) Vitamin D Start: 12-26-2019 End: 04-07-2023 take 1 tablet by mouth once daily cholecalciferol, vitamin D3, 2,000 unit chew Take 1 tablet by mouth once daily. 30 tablet 12/26/2019 04/07/2023 Discontinued (Other) Comment on above: Take 1 tablet by dmitry th once daily. doxycycline hyclate 100 mg oral capsule (20 sources) Tetracycline-cl ass Drug Start: 12-10-2017 End: 12-20-2017 take 1 capsule by mouth twice daily Doxycycline Hyclate 100 mg capsule Discontinued 100 mg PO TWICE A DAY 13 08December 10, 2017 1:00am December 19, 2017 1:00am December 20, 2017 1:06am furosemide 20 mg oral tablet (3 sources) Loop Diuretic Start: 06-20-2024 End: 08-19-2024 take 1 tablet by mouth once daily Furosemide 20 mg tablet Discontinued 20 mg PO DAILY June 20, 2024 12:00am August 19, 2024 10:47pm gabapentin 300 mg oral capsule (20 sources) Anti-epileptic Agent Start: 02-11-2023 End: 11-19-2023 take 2 capsules by mouth twice daily Gabapentin 300 mg capsule Discontinued 600 mg PO TWICE A DAY February 11, 2023 1:31pm November 19, 2023 11:39am Start: 11-05-2022 take 100 mg by mouth once zeyad y Gabapentin Active 100 MG PO DAILY November 05, 2022 1:00am @ 1300. Start: 11-05-2022 End: 02-11-2023 take 1 capsule by mouth once daily Gabapentin 300 mg capsule Discontinued 300 mg PO DAILY November 05, 2022 1:00am February 11, 2023 1:33pm Start: 11-05-2022 End: 11-19-2023 Start: 11-05-2022 Start: 03-24-2022 take 300 mg by mouth three times daily at mealtime Gabapentin Active 300 MG PO 3 TIMES DAILY WITH MEALS 60 March 23, 2022 11:00pm glucose 0.4 mg/mg oral gel (20 sources) Start: 06-12-2022 End: 11-24-2023 Dextrose (Glutose-15) 40 % g el Discontinued 15 g PO Q15M as needed for Blood Sugar June 12, 2022 12:00am November 24, 2023 3:09pm until symptoms of low blood sugar are controlled Start: 06-12-2022 End: 11-24-2023 Start: 06-12-2022 End: 11-24-2023 hydrocortisone 10 mg/ml / neomycin 3.5 mg/ml / polymyxin b [id number] unt/ml otic suspension (20 sources) Aminoglycoside Antibacterial, Polymyxin-class Antibacterial, Corticosteroid Start: 08-14-2017 End: 12-10-2017 Gphsngmt-Jjycnwpor-Rv 10 ML drops,suspension Discontinued 4 NMA OT 4 TIMES DAILY 7 August 14, 2017 12:00am December 10, 2017 2:37pm Start: 08-14-2017 End: 12-10-2017 Insulin Glargine-Yfgn (20 sources) Start: 09-09-2022 End: 11-19-2023 Insulin Glargine-Yfgn 100 un it/mL (3 mL) insulin pen Discontinued 60 U SC AT BEDTIME September 09, 2022 2:43pm November 19, 2023 11:38am Start: 09-09-2022 End: 11-19-2023 Start: 09-09-2022 End: [...] 1:43pm Start: 06-12-2022 End: 09-09-2022 Insulin Glargine-Yfgn 100 un it/mL (3 mL) insulin pen Discontinued 40 U SC EVERY MORNING June 12, 2022 2:17pm September 09, 2022 2:48pm Start: 06-12-2022 End: 09-09-2022 Insulin Glargine-Yfgn Discon [...] 24, 2022 11:03am Start: 03-24-2022 End: 06-12-2022 Insulin Glargine-Yfgn 100 un it/mL (3 mL) Insulin Pen Discontinued 35 U SC DAILY 0 March 24, 2022 12:00am June 12, 2022 2:22pm Start: 03-24-2022 End: 06-12-2022 Start: 03-24-2022 End: [...] pen injector (20 sources) Insulin Analog Start: 04-02-2024 End: 08-19-2024 Insulin Lispro (Humalog Kwikpen Insulin) 100 unit/mL Insulin Pen Discontinued 12 U SC THREE TIMES DAILY BEFORE MEALS April 02, 2024 12:00am August 19, 2024 10:47pm Start: 01-05-2024 End: 04-02-2024 Insulin Lispro (Humalog Kwik pen Insulin) 100 unit/mL Insulin Pen Discontinued 20 U SC THREE TIMES DAILY BEFORE MEALS 0 January 05, 2024 12:00am April 02, 2024 12:42pm Start: 11-24-2023 End: 01-05-2024 Insulin Lispro (Humalog Kwik pen Insulin) 100 unit/mL Insulin Pen Discontinued 5 U SC WITH BREAKFAST 0 November 24, 2023 1:00am January 05, 2024 11:18am Start: 11-05-2022 Insulin Lispro (Humalog Kwikpen Insulin) 100 unit/mL insulin pen Active 14 UNIT SC DAILY November 05, 2022 3:23am @ 1645 Start: 11-05-2022 End: 11-24-2023 Insulin Lispro 100 unit/mL i nsulin pen Discontinued 15 U SC THREE TIMES A DAY November 05, 2022 1:00am November 24, 2023 3:09pm with meals Start: 03-24-2022 End: 08-19-2024 Insulin Lispro (Humalog Kwik pen Insulin) 100 unit/mL insulin pen Discontinued 0 U SC BEFORE MEALS AND AT BEDTIME April 24, 2022 5:47pm September 09, 2022 2:47pm Please contact the information source for Protocol details. Start: 03-24-2022 End: 11-05-2022 Insulin Lispro (Humalog Kwik pen Insulin) 100 unit/mL Insulin Pen Discontinued 10 U SC THREE TIMES DAILY BEFORE MEALS 0 [...] with every meal. Sliding scale. Start: 07-28-2017 OLIVA sauceda INSULIN LISPRO SOLN [id number] Angelika De La Torre LPN insulin lispro [...] scale INSULIN ASPART PROT & ASPART SUSP [id number] Beth Doyle MA 3 ml insulin, aspart, human 100 unt/ml pen injector (2 sources) Insulin Analog Start: 03-10-20 End: 07-28-20 NOVOLOG FLEXPEN SOLN 12 units SC at breakfast, 10 units SC at lunch, 10 units SC at supper INSULIN ASPART SOLN [id number] Angelika De La Torre LPN levoFLOXacin 750 mg oral tablet (20 sources) Quinolone Antimicrobial Start: 08-16-20 End: 12-10-19 18 take 1 tablet by mouth once daily Levofloxacin 750 MG tablet Discontinued 750 mg PO DAILY August 16, 2017 12:00am December 10, 2017 2:37pm lidocaine 0.04 mg/mg medicated patch (20 sources) Antiarrhythmic, Amide Local Anesthetic Start: 04-24-20 End: 11-19-19 Lidocaine 4 % adhesive patch,medicated Discontinued 2 NMA TOPICAL DAILY June 12, 2022 2:19pm November [...] TABS One tablet by mouth daily LISINOPRIL [id number] Brenda Arthur MD LORazepam 0.5 mg oral tablet (20 sources) Benzodiazepine Start: 5 End: 5 take 1 tablet by mouth twice daily Lorazepam 0.5 mg tablet Discontinued 0.5 mg PO TWICE A DAY 60 February 19, 2025 3:38pm March 20, 2025 12:00am March 21, 2025 12:06am Start: 10-26-2024 End: 12-23-2024 take 1 tablet by mouth twice daily Lorazepam 0.5 mg tablet Discontinued 0.5 mg PO TWICE A DAY 60 November 23, 2024 4:32pm December 22, 2024 1:00am December 23, 2024 1:23am Start: 01-29-2023 End: 12-23-2024 take 1 tablet by mouth every twelve hours Lorazepam 0.5 mg tablet Discontinued 0.5 mg PO Q12H January 29, 2023 12:00am October 26, 2024 12:43pm Start: 11-17-2022 End: 12-30-2022 take 1 tablet by mouth every six hours as needed for anxiety Lorazepam 0.5 mg tablet Discontinued 0.5 mg PO Q12H 60 November 30, 2022 2:10pm December 29, 2022 1:00am December 30, 2022 1:04am One tablet every 6 hours as needed for anxiety. Start: 11-17-2022 End: 12-30-2022 Menthol / Zinc Oxide (3 sources) Start: 11-24-2023 End: 01-01-2024 Menthol-Zinc Oxide (Calmosep charmaine) 0.44-20.6 % Ointment Discontinued 1 NMA TOPICAL THREE TIMES A DAY 0 November 24, 2023 1:00am January 01, 2024 7:47pm Please contact the information source for Protocol details. Start: 11-24-2023 End: 01-01-2024 Menthol-Zinc Oxide (Calmosep charmaine) 0.44-20.6 % Ointment Discontinued 1 APPLIC TOPICAL THREE TIMES A DAY 0 November 24, 2023 1:00am January 01, 2024 7:47pm Start: 11-24-2023 End: 01-01-2024 Menthol-Zinc Oxide (Calmosep charmaine) 0.44-20.6 % Ointment Discontinued 1 APPLIC TOPICAL THREE TIMES A DAY 0 November 24, 2023 12:00am January 01, 2024 6:47pm midodrine hydrochloride 10 mg oral tablet (20 sources) alpha-Adrenergic Agonist Start: 09-09-2022 End: 01-30-2025 take 1 tablet by mouth twice daily Midodrine 10 mg tablet Discontinued 10 mg PO TWICE A DAY September 09, 2022 1:00am January 30, 2025 2:09pm Start: 05-20-2022 End: 09-09-2022 take 1 tablet by mouth once daily at bedtime Midodrine 5 mg tablet Discontinued 10 mg PO TWICE A DAY June 12, 2022 2:51pm September 09, 2022 2:48pm do not give last dose of day after 6PM or within 4 hrs of bedtime Start: 05-20-2022 End: 09-09-2022 take 1 dose [...] pb or within 4 hours of sleep mirtazapine 15 mg oral tablet (20 sources) Start: 09-09-2022 End: 01-01-2024 take 7.5 mg by mouth at bedtime Mirtazapine 15 mg tablet Discontinued 7.5 mg PO AT BEDTIME September 09, 2022 1:00am January 01, 2024 7:49pm Start: 09-09-2022 End: 01-01-2024 Start: 09-09-2022 End: [...] to affected ar ea three times daily. nystatin [id number] unt/ml oral suspension (20 sources) Polyene Antifungal Start: 06-20-2024 End: 01-30-2025 take 1 mL by mouth three times daily Nystatin 100,000 unit/mL suspension Discontinued 1 mL PO THREE TIMES A DAY 21 7 June 20, 2024 12:00am January 30, 2025 2:09pm swish and swallow Start: 06-20-2024 Start: 04-02-2024 End: 01-30-2025 Nystatin (Nyamyc) 100,000 un it/gram powder Discontinued 1 NMA TOPICAL TWICE A DAY April 02, 2024 12:00am January 30, 2025 2:09pm Start: 04-02-2024 Start: 11-24-2023 End: 01-01-2024 Nystatin (Nyamyc) 100,000 un it/gram Powder Discontinued 1 NMA TOPICAL TWICE A DAY 0 November 24, 2023 1:00am January 01, 2024 7:49pm Please contact the information source for Protocol details. Start: 11-24-2023 End: 01-01-2024 Start: 11-24-2023 End: 01-01-2024 Start: 11-24-2023 End: 01-01-2024 Nystatin (Nyamyc) 100,000 un it/gram Powder Discontinued 1 APPLIC TOPICAL TWICE A DAY 0 November 24, 2023 1:00am January 01, 2024 7:49pm omeprazole 20 mg delayed release oral capsule (6 sources) Proton Pump Inhibitor Start: 04-18-2020 End: 03-24-2023 omeprazole (PRILOSEC) 20 mg capsule Indications: Vitamin D deficiency take 1 capsule daily 30 minutes before breakfast 30 capsule 11 04/18/2020 03/24/2023 Discontinued Start: 03-01-2019 take 40 mg by mouth once daily Omeprazole Active 40 MG PO DAILY March 01, 2019 4:40pm Comment on above: take 1 capsule daily 30 minutes before breakfast oxyCODONE hydrochloride 5 mg oral tablet (20 sources) Opioid Agonist Start: 4 End: take 1 tablet by mouth every four hours as needed for pain Oxycodone 5 mg Tablet Discontinued 5 mg PO EVERY 4 HOURS NEEDED as needed for Pain Score 4-10 6 1 January 05, 2024 April 02, 2024 12:42pm Start: 01-05-2024 End: 04-02-2024 Start: 03-20-2017 End: 12-27-2017 take 1 tablet by mouth every eight hours as needed for pain Oxycodone 5 MG tablet Discontinued 5 mg PO Q8H as needed for Severe Pain (6-08/03) March 20, 2017 12:00am December 27, 2017 10:11pm Start: 01-20-2012 take 1 tablet by dmitry four times daily as needed OXYCODONE HCL 30 MG TABS One tablet by mouth four times daily PRN OXYCODONE HCL [id number] Yaw Cabrera MD polyethylene glycol 3350 56648 mg powder for oral solution (20 sources) Osmotic Laxative Start: 03-27-2022 End: 11-19-2023 take 17 g by mouth once daily as needed for constipation Polyethylene Glycol 3350 17 gram Powder In Packet Discontinued 17 g PO DAILY NEEDED as needed for constipation March 27, 2022 12:00am November 19, 2023 11:39am microencapsulated potassium chloride 20 meq extended release oral tablet (17 sources) Start: 11-24-2023 End: 01-30-2025 take 1 tablet by mouth once daily Potassium Chloride 20 mEq Tablet,Er Particles/[place] ls Discontinued 20 meq PO DAILY August 19, 2024 12:00am January 30, 2025 2:09pm sulfamethoxazole 800 mg / trimethoprim 160 mg oral tablet (20 sources) Dihydrofolate Reductase Inhibitor Antibacterial, Sulfonamide Antimicrobial Start: 02-28-2021 End: 05-13-2021 Sulfamethoxazole -Trimethoprim (Bactrim Ds) 800-160 mg tablet Discontinued 1 {tbl} PO DAILY 14 February 28, 2021 12:00am May 13, 2021 10:50am Start: 02-28-2021 End: 05-13-2021 Start: 02-28-2021 End: 05-13-2021 triamcinolone acetonide 1 mg/ml topical cream (1 source) Corticosteroid Start: 08-14-2010 End: 08-28-2010 TRIAMCINOLONE ACETONIDE 0.1 % CREA affected area twice daily TRIAMCINOLONE ACETONIDE [id number] Brenda Arthur MD CHOLECALCIFEROL CAPS (1 source) Start: 07-28-2017 VITAMIN D CAPS as directed CHOLECALCIFEROL CAPS [id number] Angelika De La Torre LPN Problems Active [...] Coronary atherosclerosis; Translations: [Atherosclerotic heart disease of [place] coronary artery without angina pectoris] Onset: 5 [...] Translations: [Hypertensive disorder] Onset: 0 08-14-2010 Chronic Comment on above: denies Gastroduodenal ulcer (except hemorrhage) (20 sources) Gastric ulcer; Translations: [Gastric ulcer, unspecified as acute or chronic, without hemorrhage or perforation] Onset: 4 02-27-2016 Chronic Headache; including migraine (20 sources) Migraine; Translations: [Migraine, unspecified, not intractable, without status migrainosus] 04-08-2019 Chronic Headache; including migraine (3 sources) Headache; Translations: [Headache] 04-01-2024 Episodic Immunizations and screening for infectious disease (4 sources) Patient encounter status; Translations: [Encounter for immunization] Episodic Intestinal obstruction without hernia (19 sources) Fecal impaction; Translations: [Fecal impaction of rectum] 03-28-2023 Episodic Malaise and fatigue (1 source) Asthenia; Translations: [Weakness] Episodic Nonspecific chest pain (20 sources) Atypical chest pain; Translations: [Chest pain] Onset: 0 Resolved: 0 08-14-2010 Episodic Nutritional deficiencies (20 sources) Vitamin D deficiency; Translations: [Vitamin D deficiency, unspecified] Onset: 0 12-26-2019 Chronic Other aftercare (8 sources) Long-term current use of anticoagulant; 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] 01-20-2024 Episodic Other circulatory disease (20 sources) Orthostatic hypotension; Translations: [Orthostatic hypotension] 06-09-2022 Episodic Other circulatory disease (2 sources) Feeling of lump in throat; Translations: [Other specified symptoms and signs involving the circulatory and respiratory systems] Episodic Other connective tissue disease (15 sources) Pain in lower limb; Translations: [Pain [...] Onset: 8 09-15-2017 Chronic Other endocrine disorders (3 sources) Hypoglycemia; Translations: [Hypoglycemia, unspecified] 04-10-2024 Chronic Other gastrointestinal disorders (1 source) Acute constipation; Translations: [Constipation, unspecified] Episodic Other gastrointestinal disorders (15 sources) Diarrhea; Translations: [Diarrhea, unspecified] 11-19-2023 Episodic [...] classified] 06-09-2022 Chronic Other nervous system disorders (17 sources) Chronic pain; Translations: [Other chronic pain] [...] [Umbilical hernia without obstruction or gangrene] Onset: 9 09-04-2019 Episodic Abdominal pain (20 sources) Left flank pain; Translations: [Unspecified abdominal pain] Onset: 4 Resolved: 5 11-02-2018 Episodic Acute and unspecified renal failure (20 sources) Injury of kidney; Translations: [Acute kidney failure, unspecified] Onset: 9 11-21-2018 Episodic Allergic reactions (20 sources) Eczema; Translations: [Dermatitis, unspecified] Onset: 0 12-26-2019 Episodic Calculus of urinary tract (20 sources) H/O: urinary stone; Translations: [Personal history of urinary calculi] Onset: 8 03-05-2009 Episodic Comment on above: present with left fl ank pain from 5mm stone in left kidney Chronic obstructive pulmonary disease and bronchiectasis (1 source) Bronchitis; Translations: [Bronchitis, not specified as acute or chronic] Onset: 7 07-28-2017 Episodic Deficiency and other anemia (12 sources) Anemia; Translations: [Anemia, unspecified] Onset: 5 Resolved: 6 02-27-2016 Episodic Fluid and electrolyte disorders (20 sources) Acute hyponatremia; Translations: [Hypo-osmolality and hyponatremia] Onset: 9 09-18-2019 Episodic Genitourinary symptoms and ill-defined conditions (20 sources) Blood in urine; Translations: [Hematuria, unspecified] Onset: 7 01-22-2017 Episodic Comment on above: hematuria probably f rom stone Intestinal infection (2 sources) Infectious gastroenteritis and colitis, unspecified; Translations: [Infectious gastroenteritis and colitis, unspecified] Onset: 5 Episodic Mood disorders (20 sources) Depressive disorder; Translations: [Depressive disorder] Onset: 8 Resolved: 6 Chronic Mycoses (20 sources) Onychomycosis; Translations: [Tinea unguium] Onset: 3 04-07-2023 Episodic Nausea and vomiting (20 sources) Vomiting; Translations: [Vomiting, unspecified] Onset: 4 08-03-2019 Episodic Nonmalignant breast conditions (20 sources) Lump in left breast; Translations: [Unspecified lump in the left breast, unspecified quadrant] Onset: 0 12-26-2019 Episodic Other and unspecified benign neoplasm (20 sources) Benign neoplasm of colon; Translations: [Benign neoplasm of colon, unspecified] Onset: 4 05-15-2014 Episodic Other circulatory disease (1 source) Choking; Translations: [Unspecified foreign body in larynx causing other injury] Onset: 0 03-10-2010 Episodic Other connective tissue disease (20 sources) Triggering of digit; Translations: [Trigger finger, right ring finger] Onset: 6 01-28-2016 Episodic Other connective tissue disease (20 sources) Radial styloid tenosynovitis; Translations: [Radial styloid tenosynovitis [de Quervain]] Onset: 6 04-02-2016 Episodic Other connective tissue disease (20 sources) Trigger thumb of right hand; Translations: [Trigger thumb, right thumb] Onset: 6 04-02-2016 Episodic Other connective tissue disease (20 sources) Trigger finger of right hand; Translations: [Trigger finger, unspecified finger] Onset: 7 06-22-2017 Episodic Other connective tissue disease (12 sources) Trigger thumb of left hand; Translations: [Trigger thumb, left thumb] Onset: 5 Resolved: 7 01-27-2017 Episodic Other connective tissue disease (2 sources) Muscle wasting and atrophy, not elsewhere classified, right lower leg; Translations: [Muscle wasting and atrophy, not elsewhere classified, right lower leg] Onset: 5 Episodic Other connective tissue disease (1 source) Muscle wasting and atrophy, not elsewhere classified, left lower leg; Translations: [Muscle wasting and atrophy, not elsewhere classified, left lower leg] Onset: 4 Episodic Other gastrointestinal disorders (20 sources) Constipation; Translations: [Constipation, unspecified] Onset: 5 Resolved: 5 03-28-2023 Episodic Other gastrointestinal disorders (13 sources) Diarrhea, unspecified; Translations: [Diarrhea] Onset: 4 11-19-2023 Episodic Other inflammatory condition of skin (1 source) Pruritus of skin; Translations: [Pruritus, unspecified] Onset: 0 08-14-2010 Episodic Other nervous system disorders (12 sources) Carpal tunnel syndrome of left wrist; Translations: [Carpal tunnel syndrome, left upper limb] Onset: 5 Resolved: 7 01-27-2017 Chronic Other nervous system disorders (12 sources) Carpal tunnel syndrome of right wrist; Translations: [Carpal tunnel syndrome, right upper limb] Onset: 5 Resolved: 7 01-27-2017 Chronic Other nutritional; endocrine; and metabolic disorders (1 source) Abnormal weight loss; Translations: [Abnormal weight loss] Onset: 0 03-10-2010 Episodic Other upper respiratory infections (1 source) Upper respiratory infection; Translations: [Acute upper respiratory infection, unspecified] Onset: 7 07-28-2017 Episodic Otitis media and related conditions (1 source) Otitis media; Translations: [Otitis media, unspecified, unspecified ear] Onset: 7 07-28-2017 Episodic Residual codes; unclassified (20 sources) Disturbance in sleep behavior; Translations: [Sleep disorder, unspecified] Onset: 9 02-27-2016 Episodic Residual codes; unclassified (20 sources) History of cardiac catheterization; Translations: [Other specified postprocedural states] Onset: 2 06-09-2022 Episodic Comment on above: LEFT MAIN: Mild calc ification, Angiographically normal; LEFT ANTERIOR DESCENDING ARTERY: MID LAD: Moderate luminal irregularities up to 50%; CIRCUMFLEX ARTERY:MID CIRC: Moderate luminal irregularities up to 50%; RIGHT CORONARY ARTERY: Mild luminal irregularities; per cardiac cath Dr. Lombardo 05/21/22denies having done. Spondylosis; intervertebral disc disorders; other back problems (20 sources) Radiculopathy due to lumbar intervertebral disc disorder; Translations: [Intervertebral disc disorders with radiculopathy, lumbar region] Onset: 9 Episodic Unclassified (20 sources) Readiness finding; Translations: [Desire for detoxification] 07-01-2021 Unclassified (12 sources) Type 2 diabetes mellitus without complication; Translations: [Diabetes mellitus type 2, uncontrolled, without complications] Onset: 8 Resolved: 6 02-27-2016 Unclassified (1 source) Patient encounter status 02-06-2025 Urinary tract infections (20 sources) Urinary tract infectious disease; Translations: [Urinary tract infection, site not specified] Onset: 5 10-17-2022 Episodic Results Test Name Value Interpretation Reference Range Facility Anion gap in Serum or Plasma Ordered By: Lizet Linares on 03-12-2025 Anion gap [Moles/Vol] 12 mmol/L 03-08 [facility] BUN/creatinine ratioOrdered By: Hollymonterey parknatasha Linares on 03-12-2025 Urea nitrogen/Creatinine [Mass ratio] 24.9 mg/mg High 08-13 [facility] Carbon dioxide, total [Moles /volume] in Central venous bloodOrdered By: Lizet Linares on 03-12-2025 CO2 [Moles/Vol] 23.0 mmol/L 21.0-32.0 [facility] Chloride assayOrdered By: Junie Linares on 03-12-2025 Chloride [Moles/Vol] 97 mmol/L Low 98-108 [facility] Glomerular filtration rate ( GFR) estimation/1.73 sq m using serum, plasma, or whole bOrdered By: Lizet Linares on 03-12-2025 GFR/1.73 sq M.predicted among non-blacks MDRD (S/P/Bld) [Vol rate/Area] 35 mL/min/{1.73_m2} Low >60 [facility] Comment on above: mL/min/1.73m2 CKD-EP I Creatinine Equation (2020) Potassium measurement (mass/ volume)Ordered By: Lizet Linares on 03-12-2025 Potassium (Unsp spec) [Mass/Vol] 4.3 mmol/L 3.3-5.1 [facility] Serum creatinine measurement (mass/volume)Ordered By: Lizet Linares on 03-12-2025 Creatinine [Mass/Vol] 1.64 mg/dL High 0.70-1.20 [facility] Serum glucose measurement (m ass/volume)Ordered By: Lizet Linares on 03-12-2025 Glucose [Mass/Vol] 428 mg/dL High 70-99 [facility] Serum or plasma calcium tai urement (mass/volume)Ordered By: Lizet Linares on 03-12-2025 Calcium [Mass/Vol] 8.6 mg/dL 7.6-11.0 [facility] Serum or plasma urea nitroge n measurement (mass/volume)Ordered By: Lizet Linares on 03-12-2025 Urea nitrogen [Mass/Vol] 41 mg/dL High 4-19 [facility] Sodium levelOrdered By: Holly lrtia Milagros on 03-12-2025 Sodium [Moles/Vol] 132 mmol/L Low 133-145 [facility] Bilirubin directOrdered By: Ana Maria Geller on 03-05-2025 Bilirubin.direct [Mass/Vol] 0.12 mg/dL 0.00-0.30 [facility] Bilirubin, totalOrdered By: Ana Maria Geller on 03-05-2025 Bilirubin [Mass/Vol] 0.19 mg/dL 0.00-1.30 [facility] Laboratory - Chemistry and C hemistry - challengeOrdered By: Ana Maria Geller on 03-05-2025 AST [Catalytic activity/Vol] 23 U/L <32 [facility] Serum globulin measurementOr dered By: Ana Maria Geller on 03-05-2025 Globulin (S) [Mass/Vol] 2.7 g/dL 2.2-4.2 [facility] Serum or plasma alanine russo otransferase (ALT) measurementOrdered By: Ana Maria Geller on 03-05-2025 ALT [Catalytic activity/Vol] 24 U/L <35 [facility] Serum or plasma albumin tai urement (mass/volume)Ordered By: Ana Maria Geller on 03-05-2025 Albumin [Mass/Vol] 3.4 g/dL 3.4-4.8 [facility] Serum or plasma alkaline shante sphatase measurementOrdered By: Ana Maria Geller on 03-05-2025 ALP [Catalytic activity/Vol] 51 U/L 35-104 [facility] Total proteinOrdered By: Porter Geller on 03-05-2025 Protein [Mass/Vol] 6.1 g/dL 5.9-8.4 [facility] Absolute lymphocyte countOrd ered By: Zack Choi on 01-22-2025 Lymphocytes Auto (Unsp spec) [#/Vol] 2.95 10*3/uL 0.83-4.51 [facility] Absolute neutrophil countOrd ered By: Zack Choi on 01-22-2025 Neutrophils (Bld) [#/Vol] 4.6 10*3/uL 2.0-7.7 [facility] Absolute neutrophil count 4.6 X10^3/uL 2.0-7.7 [facility] Anion gap [Moles/Vol]Ordered By: Zack Choi on 01-22-2025 Anion gap in Serum or Plasma 12 5-15 [facility] Anion gap in Serum or Plasma Ordered By: Zack Choi on 01-22-2025 Anion gap [Moles/Vol] 12 mmol/L 5-15 [facility] Automated lymphocyte count a s percentage of total leukocytesOrdered By: Zack Choi on 01-22-2025 Lymphocytes/100 WBC Auto (Unsp spec) 35.8 % 19-41 [facility] BUN/creatinine ratioOrdered By: Zack Choi on 01-22-2025 Urea nitrogen/Creatinine [Mass ratio] 24.2 mg/mg High 10-20 [facility] BUN/creatinine ratio 24.2 RATIO High 10-20 [facility] Basophil percentageOrdered B y: Zack Choi on 01-22-2025 Basophils/100 WBC (Bld) 0.6 % 0-1 [facility] Basophil percentage 0.6 % 0-1 [facility] Calcium [Mass/Vol]Ordered By : Zcak Choi on 01-22-2025 Serum or plasma calcium measurement (mass/volume) 9.4 mg/dL 7.6-11.0 [facility] Carbon dioxide, total [Moles /volume] in Central venous bloodOrdered By: Zack Choi on 01-22-2025 CO2 [Moles/Vol] 22.3 mmol/L 21.0-32.0 [facility] Carbon dioxide, total [Moles/volume] in Central venous blood 22.3 mmol/L 21.0-32.0 [facility] Chloride assayOrdered By: Albert Choi on 01-22-2025 Chloride [Moles/Vol] 98 mmol/L 98-108 [facility] Chloride assay 98 mmol/L 98-108 [facility] Creatinine [Mass/Vol]Ordered By: Zack Choi on 01-22-2025 Serum creatinine measurement (mass/volume) 1.37 mg/dL High 0.70-1.20 [facility] Eosinophil percentageOrdered By: Zack Choi on 01-22-2025 Eosinophils/100 WBC (Bld) 1.0 % 0-5 [facility] Eosinophil percentage 1.0 % 0-5 [facility] Erythrocyte distribution wid th (RBC) [Ratio]Ordered By: Zack Choi on 01-22-2025 Erythrocyte distribution width ratio 14.1 % 11.6-14.6 [facility] Erythrocyte distribution wid th ratioOrdered By: Zack Choi on 01-22-2025 Erythrocyte distribution width (RBC) [Ratio] 14.1 % 11.6-14.6 [facility] Erythrocyte distribution wid th standard deviationOrdered By: Zack Choi on 01-22-2025 Erythrocyte distribution width (RBC) [Ratio] 44.8 fl High 35.1-43.9 [facility] Erythrocyte distribution width standard deviation 44.8 fl High 35.1-43.9 [facility] Estimation of creatinine jacqui aranceOrdered By: Zack Choi on 01-22-2025 Estimation of creatinine clearance 43.47 ml/min Low 50-250 [facility] GFR/1.73 sq M.predicted adama g non-blacks MDRD (S/P/Bld) [Vol rate/Area]Ordered By: Zack Choi on 01-22-2025 Glomerular filtration rate (GFR) estimation/1.73 sq m using serum, plasma, or whole b 44 Low >60 [facility] Glomerular filtration rate ( GFR) estimation/1.73 sq m using serum, plasma, or whole bOrdered By: Zack Choi on 01-22-2025 GFR/1.73 sq M.predicted among non-blacks MDRD (S/P/Bld) [Vol rate/Area] 44 mL/min/{1.73_m2} Low >60 [facility] Comment on above: mL/min/1.73m2 CKD-EP I Creatinine Equation (2020) Glucose [Mass/Vol]Ordered By : Zack Choi on 01-22-2025 Serum glucose measurement (mass/volume) 245 mg/dL High 70-99 [facility] Hematocrit Auto (Bld) [Volum e fraction]Ordered By: Zack Chio on 01-22-2025 Hematocrit (Bld) [Volume fraction] 37.0 % 37-47 [facility] Automated blood hematocrit (percentage) 37.0 % 37-47 [facility] Hemoglobin measurementOrdere d By: Zack Choi on 01-22-2025 Hemoglobin (Bld) [Mass/Vol] 12.1 g/dL 12.0-15.0 [facility] Hemoglobin measurement 12.1 g/dL 12.0-15.0 [facility] Immature granulocytes/100 WB C Auto (Bld)Ordered By: Zack Choi on 01-22-2025 Immature granulocytes/100 WBC (Bld) 1.000 % High 0.0-0.9 [facility] Comment on above: IG% - Immature Granu locytes (promyelocytes, myelocytes and metamyelocytes) > 1% indicates that a LEFT SHIFT is Present. Automated immature granulocyte percentage 1.000 % High 0.0-0.9 [facility] Lymphocytes Auto (Unsp spec) [#/Vol]Ordered By: Zack Choi on 01-22-2025 Absolute lymphocyte count 2.95 X10^3/uL 0.83-4. 51 [facility] Lymphocytes/100 WBC Auto (Un sp spec)Ordered By: Zack Choi on 01-22-2025 Automated lymphocyte count as percentage of total leukocytes 35.8 % 19-41 [facility] MCV (RBC) [Entitic vol]Order ed By: Zack Choi on 01-22-2025 MCV (mean corpuscular volume) determination 87.5 fL 81-99 [facility] MCV (mean corpuscular volume ) determinationOrdered By: Zack Choi on 01-22-2025 MCV (RBC) [Entitic vol] 87.5 fL 81-99 [facility] Mean corpuscular hemoglobin (MCH) determinationOrdered By: Zack Choi on 01-22-2025 MCH (RBC) [Entitic mass] 28.6 pg 27.0-32.0 [facility] Mean corpuscular hemoglobin (MCH) determination 28.6 pg 27.0-32.0 [facility] Mean corpuscular hemoglobin concentration (MCHC) determinationOrdered By: Zack Choi on 01-22-2025 MCHC (RBC) [Mass/Vol] 32.7 g/dL 32-36 [facility] Mean corpuscular hemoglobin concentration (MCHC) determination 32.7 g/dL 32-36 [facility] Mean platelet volume determi nationOrdered By: Zack Choi on 01-22-2025 Platelet mean volume (Bld) [Entitic vol] 9.6 fL 6.2-12.0 [facility] Mean platelet volume determination 9.6 fl 6.2-12.0 [facility] Monocyte percentageOrdered B y: Zack Choi on 01-22-2025 Monocytes/100 WBC (Bld) 5.6 % 0-10 [facility] Monocyte percentage 5.6 % 0-10 [facility] Neutrophil percentageOrdered By: Zack Choi on 01-22-2025 Neutrophils/100 WBC (Bld) 56.0 % 47-70 [facility] Neutrophil percentage 56.0 % 47-70 [facility] No Panel InformationOrdered By: Zack Choi on 01-22-2025 Troponin T High Sensitivity 54 ng/L High <14 [facility] Comment on above: Critical Result(s) C alled at 1135: by: JUANA GARDNER TO SANDY. Results read back by same. 54 ng/L High <14 [facility] Nucleated red blood cell per centageOrdered By: Zack Choi on 01-22-2025 Nucleated RBC/100 WBC (Bld) [Ratio] 0 % 0-5 [facility] Nucleated red blood cell percentage 0 % 0-5 [facility] Platelet countOrdered By: Albert Choi on 01-22-2025 Platelets (Bld) [#/Vol] 341 10*3/uL 150-450 [facility] Platelet count 341 K/mm3 150-450 [facility] Potassium (Unsp spec) [Mass/ Vol]Ordered By: Zack Choi on 01-22-2025 Potassium measurement (mass/volume) 4.4 mmol/L 3.3-5.1 [facility] Potassium measurement (mass/ volume)Ordered By: Zack Choi on 01-22-2025 Potassium (Unsp spec) [Mass/Vol] 4.4 mmol/L 3.3-5.1 [facility] RBC Auto (Bld) [#/Vol]Ordere d By: Zack Choi on 01-22-2025 RBC (Bld) [#/Vol] 4.23 10*6/uL 4.2-5.4 [facility] Automated blood erythrocyte count 4.23 M/mm3 4.2-5.4 [facility] Serum creatinine measurement (mass/volume)Ordered By: Zack Choi on 01-22-2025 Creatinine [Mass/Vol] 1.37 mg/dL High 0.70-1.20 [facility] Serum glucose measurement (m ass/volume)Ordered By: Zack Choi on 01-22-2025 Glucose [Mass/Vol] 245 mg/dL High 70-99 [facility] Serum or plasma calcium tai urement (mass/volume)Ordered By: Zack Choi on 01-22-2025 Calcium [Mass/Vol] 9.4 mg/dL 7.6-11.0 [facility] Serum or plasma urea nitroge n measurement (mass/volume)Ordered By: Zack Choi on 01-22-2025 Urea nitrogen [Mass/Vol] 33 mg/dL High 4- [facility] Sodium levelOrdered By: Sherman Choi on 01-22-2025 Sodium [Moles/Vol] 133 mmol/L 133-145 [facility] Sodium level 133 mmol/L 133-145 [facility] Troponin T.cardiac High sens itivity method [Mass/Vol]Ordered By: Zack Choi on 01-22-2025 Troponin T.cardiac [Mass/volume] in Serum or Plasma by High sensitivity method 48 ng/L High <14 [facility] Troponin T.cardiac [Mass/vol ume] in Serum or Plasma by High sensitivity methodOrdered By: Zack Choi on 01-22-2025 Troponin T.cardiac High sensitivity method [Mass/Vol] 48 ng/L High <14 [facility] Urea nitrogen [Mass/Vol]Orde red By: Zack Choi on 01-22-2025 Serum or plasma urea nitrogen measurement (mass/volume) 33 mg/dL High - [facility] White blood cell (WBC) count Ordered By: Zack Choi on 01-22-2025 WBC (Bld) [#/Vol] 8.2 10*3/uL 4.4-11.0 [facility] White blood cell (WBC) count 8.2 K/mm3 4.4-11.0 [facility] HbA1c (Bld) [Mass fraction]O rdered By: Lizet Linares on 01-05-2025 Hemoglobin A1c percentage 10.2 % >5.7 [facility] Hemoglobin A1c percentageOrd ered By: Lizet Linares on 01-05-2025 HbA1c (Bld) [Mass fraction] 10.2 % >5.7 [facility] Creatinine (U) [Mass/Vol]Ord ered By: Lizet Linares on 12-07-2024 Urine creatinine measurement (mass/volume) 38.20 mg/dL NO RANGE EST. [facility] Random urine microalbumin me asurementOrdered By: Lizet Linares on 12-07-2024 Random urine microalbumin measurement 9.2 mg/L NO RANGE EST. [facility] Urine albumin/creatinine rat io for detection of microalbuminuriaOrdered By: Lizet Linares on 12-07-2024 Urine albumin/creatinine ratio for detection of microalbuminuria 24.0 mg/g CRE <30 [facility] Urine creatinine measurement (mass/volume)Ordered By: Lizet Linares on 12-07-2024 Creatinine (U) [Mass/Vol] 38.20 mg/dL NO RANGE EST. [facility] Cholesterol [Mass/Vol]Ordere d By: Lizet Linares on 11-30-2024 Serum or plasma cholesterol measurement (mass/volume) 91 mg/dL <200 [facility] High density lipoprotein (HD L) measurementOrdered By: Lizet Linares on 11-30-2024 Cholesterol in HDL [Mass/Vol] 29 mg/dL Low >40 [facility] Comment on above: The drugs N-Acetylcy steine and Metamizole may falsely depress this assay. Reference Range HDL <40 mg/dL Low HDL Cholesterol HDL >or= 60 mg/dL High HDL Cholesterol High density lipoprotein (HDL) measurement 29 mg/dL Low >40 [facility] Low density lipoprotein (LDL ) cholesterol measurementOrdered By: Lizet Linares on 11-30-2024 Cholesterol in LDL [Mass/Vol] 24 mg/dL 0-130 [facility] Low density lipoprotein (LDL) cholesterol measurement 24 mg/dL 0-130 [facility] Serum or plasma cholesterol measurement (mass/volume)Ordered By: Lizet Linares on 11-30-2024 Cholesterol [Mass/Vol] 91 mg/dL <200 [facility] Comment on above: <200 mg/dL Desirable 200-240 mg/dL Borderline >240 mg/dL High Risk Serum or plasma thyroid stim ulating hormone (TSH) measurement (units/volume)Ordered By: Lizet Linares on 11-30-2024 TSH Qn 2.550 uIU/mL 0.358-3.74 0 [facility] TSH QnOrdered By: Lizet Linares on 11-30-2024 Serum or plasma thyroid stimulating hormone (TSH) measurement (units/volume) 2.550 uIU/mL 0.358-3.74 0 [facility] Triglycerides measurementOrd ered By: Lizet Linares on 11-30-2024 Triglyceride [Mass/Vol] 191 mg/dL <199 [facility] Comment on above: The drugs N-Acetylcy steine and Metamizole may falsely depress this assay.Serum Triglycerides Reference Interval Normal <150 mg/dL Borderline high 150 - 199 mg/dL High 200 - 499 mg/dL Very High > or = 500 mg/dL Triglycerides measurement 191 mg/dL <199 [facility] Very low density lipoprotein (VLDL) cholesterol measurementOrdered By: Lizet Linares on 11-30-2024 Very low density lipoprotein (VLDL) cholesterol measurement 38 mg/dL 5-40 [facility] Very low density lipoprotein (VLDL) cholesterol measurement 38 mg/dL 5-40 [facility] Absolute neutrophil countOrd ered By: Lizet Linares on 11-24-2024 Absolute neutrophil count 4.1 X10^3/uL 2.0-7.7 [facility] Basophil percentageOrdered B y: Lizet Linares on 11-24-2024 Basophil percentage 0.6 % 0-1 [facility] Blood urea nitrogen (BUN)/cr eatinine ratioOrdered By: Lizet Linares on 11-24-2024 Blood urea nitrogen (BUN)/creatinine ratio 22.2 RATIO High 10-20 [facility] Calcium [Mass/Vol]Ordered By : Lizet Linares on 11-24-2024 Serum or plasma calcium measurement (mass/volume) 9.2 mg/dL 8.5-10.1 [facility] Carbon dioxide measurementOr dered By: Lizet Linares on 11-24-2024 Carbon dioxide measurement 27.0 mmol/L 21.0-32.0 [facility] Chloride measurementOrdered By: Lizet Linares on 11-24-2024 Chloride measurement 98 mmol/L 98-107 [facility] Creatinine [Mass/Vol]Ordered By: Lizet Linares on 11-24-2024 Serum or plasma creatinine measurement (mass/volume) 1.53 mg/dL High 0.55-1.02 [facility] Eosinophil percentageOrdered By: Lizet Linares on 11-24-2024 Eosinophil percentage 1.5 % 0-5 [facility] Erythrocyte distribution wid th (RBC) [Ratio]Ordered By: Lizet Linares on 11-24-2024 Erythrocyte distribution width ratio 13.9 % 11.6-14.6 [facility] Erythrocyte distribution wid th standard deviationOrdered By: Lizet Linares on 11-24-2024 Erythrocyte distribution width standard deviation 45.1 fl High 35.1-43.9 [facility] Estimated glomerular filtrat ion rate (GFR) AmericanOrdered By: Lizet Linares on 11-24-2024 Estimated glomerular filtration rate (GFR) 44 mL/min Low >60 [facility] Glomerular filtration rate ( GFR) estimationOrdered By: Lizet Linares on 11-24-2024 Glomerular filtration rate (GFR) estimation 37 mL/min Low >60 [facility] Glucose measurementOrdered B y: Lizet Linares on 11-24-2024 Glucose measurement 402 mg/dL High 74-106 [facility] Hematocrit Auto (Bld) [Volum e fraction]Ordered By: Lizet Linares on 11-24-2024 Automated blood hematocrit (percentage) 32.9 % Low 37-47 [facility] Hemoglobin measurementOrdere d By: Lizet Linares on 11-24-2024 Hemoglobin measurement 10.2 g/dL Low 12.0-15.0 [facility] Immature granulocytes/100 WB C Auto (Bld)Ordered By: Lizet Linares on 11-24-2024 Automated immature granulocyte percentage 0.600 % 0.0-0.9 [facility] Lymphocytes Auto (Unsp spec) [#/Vol]Ordered By: Lizet Linares on 11-24-2024 Absolute lymphocyte count 2.20 X10^3/uL 0.83-4. 51 [facility] Lymphocytes/100 WBC Auto (Un sp spec)Ordered By: Lizet Linares on 11-24-2024 Automated lymphocyte count as percentage of total leukocytes 32.2 % 19-41 [facility] MCV (RBC) [Entitic vol]Order ed By: Lizet Linares on 11-24-2024 MCV (mean corpuscular volume) determination 89.2 fL 81-99 [facility] Mean corpuscular hemoglobin (MCH) determinationOrdered By: Lizet Linares on 11-24-2024 Mean corpuscular hemoglobin (MCH) determination 27.6 pg 27.0-32.0 [facility] Mean corpuscular hemoglobin concentration (MCHC) determinationOrdered By: Lizet Linares on 11-24-2024 Mean corpuscular hemoglobin concentration (MCHC) determination 31.0 g/dL Low 32-36 [facility] Mean platelet volume determi nationOrdered By: Lizet Linares on 11-24-2024 Mean platelet volume determination 9.3 fl 6.2-12.0 [facility] Monocyte percentageOrdered B y: Lizet Linares on 11-24-2024 Monocyte percentage 5.1 % 0-10 [facility] Neutrophil percentageOrdered By: Lizet Linares on 11-24-2024 Neutrophil percentage 60.0 % 47-70 [facility] Nucleated red blood cell per centageOrdered By: Lizet Linares on 11-24-2024 Nucleated red blood cell percentage 0 % 0-5 [facility] Platelet countOrdered By: Junie Linares on 11-24-2024 Platelet count 311 K/mm3 150-450 [facility] Potassium measurementOrdered By: Lizet Linares on 11-24-2024 Potassium measurement 4.7 mmol/L 3.5-5.1 [facility] RBC Auto (Bld) [#/Vol]Ordere d By: Lizet Linares on 11-24-2024 Automated blood erythrocyte count 3.69 M/mm3 Low 4.2-5.4 [facility] Serum anion gap measurementO rdered By: Lizet Linares on 11-24-2024 Serum anion gap measurement 6 5-15 [facility] Sodium levelOrdered By: Holly Linares on 11-24-2024 Sodium level 131 mmol/L Low 136-145 [facility] Urea nitrogen [Mass/Vol]Orde red By: Lizet Linares on 11-24-2024 Serum or plasma urea nitrogen measurement (mass/volume) 34 mg/dL High 7-18 [facility] White blood cell (WBC) count Ordered By: Lizet Linares on 11-24-2024 White blood cell (WBC) count 6.8 K/mm3 4.4-11.0 [facility] Absolute neutrophil countOrd ered By: Lizet Linares on 11-17-2024 Absolute neutrophil count 3.2 X10^3/uL 2.0-7.7 [facility] Basophil percentageOrdered B y: Lizet Linares on 11-17-2024 Basophil percentage 0.7 % 0-1 [facility] Blood urea nitrogen (BUN)/cr eatinine ratioOrdered By: Lizet Linares on 11-17-2024 Blood urea nitrogen (BUN)/creatinine ratio 22.6 RATIO High 10-20 [facility] Calcium [Mass/Vol]Ordered By : Lizet Linares on 11-17-2024 Serum or plasma calcium measurement (mass/volume) 8.6 mg/dL 8.5-10.1 [facility] Carbon dioxide measurementOr dered By: Lizet Linares on 11-17-2024 Carbon dioxide measurement 26.0 mmol/L 21.0-32.0 [facility] Chloride measurementOrdered By: Lizet Linares on 11-17-2024 Chloride measurement 103 mmol/L 98-107 [facility] Creatinine [Mass/Vol]Ordered By: Lizet Linares on 11-17-2024 Serum or plasma creatinine measurement (mass/volume) 1.37 mg/dL High 0.55-1.02 [facility] Eosinophil percentageOrdered By: Lizet Linares on 11-17-2024 Eosinophil percentage 1.5 % 0-5 [facility] Erythrocyte distribution wid th (RBC) [Ratio]Ordered By: Lizet Linares on 11-17-2024 Erythrocyte distribution width ratio 13.8 % 11.6-14.6 [facility] Erythrocyte distribution wid th standard deviationOrdered By: Lizet Linares on 11-17-2024 Erythrocyte distribution width standard deviation 44.4 fl High 35.1-43.9 [facility] Estimated glomerular filtrat ion rate (GFR) AmericanOrdered By: Lizet Linares on 11-17-2024 Estimated glomerular filtration rate (GFR) 50 mL/min Low >60 [facility] Glomerular filtration rate ( GFR) estimationOrdered By: Lizet Linares on 11-17-2024 Glomerular filtration rate (GFR) estimation 42 mL/min Low >60 [facility] Glucose measurementOrdered B y: Lizet Linares on 11-17-2024 Glucose measurement 304 mg/dL High 74-106 [facility] Hematocrit Auto (Bld) [Volum e fraction]Ordered By: Lizet Linares on 11-17-2024 Automated blood hematocrit (percentage) 32.3 % Low 37-47 [facility] Hemoglobin measurementOrdere d By: Lizet Linares on 11-17-2024 Hemoglobin measurement 10.1 g/dL Low 12.0-15.0 [facility] Immature granulocytes/100 WB C Auto (Bld)Ordered By: Lizet Linares on 11-17-2024 Automated immature granulocyte percentage 0.300 % 0.0-0.9 [facility] Lymphocytes Auto (Unsp spec) [#/Vol]Ordered By: Lizet Linares on 11-17-2024 Absolute lymphocyte count 2.18 X10^3/uL 0.83-4. 51 [facility] Lymphocytes/100 WBC Auto (Un sp spec)Ordered By: Lizet Linares on 11-17-2024 Automated lymphocyte count as percentage of total leukocytes 36.9 % 19-41 [facility] MCV (RBC) [Entitic vol]Order ed By: Lizet Linares on 11-17-2024 MCV (mean corpuscular volume) determination 87.5 fL 81-99 [facility] Mean corpuscular hemoglobin (MCH) determinationOrdered By: Lizet Linares on 11-17-2024 Mean corpuscular hemoglobin (MCH) determination 27.4 pg 27.0-32.0 [facility] Mean corpuscular hemoglobin concentration (MCHC) determinationOrdered By: Lizet Linares on 11-17-2024 Mean corpuscular hemoglobin concentration (MCHC) determination 31.3 g/dL Low 32-36 [facility] Mean platelet volume determi nationOrdered By: Lizet Linares on 11-17-2024 Mean platelet volume determination 9.4 fl 6.2-12.0 [facility] Monocyte percentageOrdered B y: Lizet Linares on 11-17-2024 Monocyte percentage 5.8 % 0-10 [facility] Neutrophil percentageOrdered By: Lizet Linares on 11-17-2024 Neutrophil percentage 54.8 % 47-70 [facility] Nucleated red blood cell per centageOrdered By: Lizet Linares on 11-17-2024 Nucleated red blood cell percentage 0 % 0-5 [facility] Platelet countOrdered By: Junie Linares on 11-17-2024 Platelet count 309 K/mm3 150-450 [facility] Potassium measurementOrdered By: Lizet Linares on 11-17-2024 Potassium measurement 4.3 mmol/L 3.5-5.1 [facility] RBC Auto (Bld) [#/Vol]Ordere d By: Lizet Linares on 11-17-2024 Automated blood erythrocyte count 3.69 M/mm3 Low 4.2-5.4 [facility] Serum anion gap measurementO rdered By: Lizet Linares on 11-17-2024 Serum anion gap measurement 6 5-15 [facility] Sodium levelOrdered By: Holly Linares on 11-17-2024 Sodium level 135 mmol/L Low 136-145 [facility] Urea nitrogen [Mass/Vol]Orde red By: Lizet Linares on 11-17-2024 Serum or plasma urea nitrogen measurement (mass/volume) 31 mg/dL High 7-18 [facility] White blood cell (WBC) count Ordered By: Lizet Linares on 11-17-2024 White blood cell (WBC) count 5.9 K/mm3 4.4-11.0 [facility] Absolute neutrophil countOrd ered By: Lizet Linares on 11-10-2024 Absolute neutrophil count 4.5 X10^3/uL 2.0-7.7 [facility] Basophil percentageOrdered B y: Lizet Linares on 11-10-2024 Basophil percentage 0.7 % 0-1 [facility] Blood urea nitrogen (BUN)/cr eatinine ratioOrdered By: Lizet Linares on 11-10-2024 Blood urea nitrogen (BUN)/creatinine ratio 16.4 RATIO 10-20 [facility] Calcium [Mass/Vol]Ordered By : Lizet Linares on 11-10-2024 Serum or plasma calcium measurement (mass/volume) 9.1 mg/dL 8.5-10.1 [facility] Carbon dioxide measurementOr dered By: Lizet Linares on 11-10-2024 Carbon dioxide measurement 27.0 mmol/L 21.0-32.0 [facility] Chloride measurementOrdered By: Lizet Linares on 11-10-2024 Chloride measurement 100 mmol/L 98-107 [facility] Creatinine [Mass/Vol]Ordered By: Lizet Linares on 11-10-2024 Serum or plasma creatinine measurement (mass/volume) 1.40 mg/dL High 0.55-1.02 [facility] Eosinophil percentageOrdered By: Lizet Linares on 11-10-2024 Eosinophil percentage 1.1 % 0-5 [facility] Erythrocyte distribution wid th (RBC) [Ratio]Ordered By: Lizet Linares on 11-10-2024 Erythrocyte distribution width ratio 13.8 % 11.6-14.6 [facility] Erythrocyte distribution wid th standard deviationOrdered By: Lizet Linares on 11-10-2024 Erythrocyte distribution width standard deviation 45.1 fl High 35.1-43.9 [facility] Estimated glomerular filtrat ion rate (GFR) AmericanOrdered By: Lizet Linares on 11-10-2024 Estimated glomerular filtration rate (GFR) 49 mL/min Low >60 [facility] Glomerular filtration rate ( GFR) estimationOrdered By: Lizet Linares on 11-10-2024 Glomerular filtration rate (GFR) estimation 41 mL/min Low >60 [facility] Glucose measurementOrdered B y: Lizet Linares on 11-10-2024 Glucose measurement 342 mg/dL High 74-106 [facility] Hematocrit Auto (Bld) [Volum e fraction]Ordered By: Lizet Linares on 11-10-2024 Automated blood hematocrit (percentage) 32.9 % Low 37-47 [facility] Hemoglobin measurementOrdere d By: Lizet Linares on 11-10-2024 Hemoglobin measurement 10.4 g/dL Low 12.0-15.0 [facility] Immature granulocytes/100 WB C Auto (Bld)Ordered By: Lizet Linares on 11-10-2024 Automated immature granulocyte percentage 0.600 % 0.0-0.9 [facility] Lymphocytes Auto (Unsp spec) [#/Vol]Ordered By: Lizet Linares on 11-10-2024 Absolute lymphocyte count 2.01 X10^3/uL 0.83-4. 51 [facility] Lymphocytes/100 WBC Auto (Un sp spec)Ordered By: Lizet Linares on 11-10-2024 Automated lymphocyte count as percentage of total leukocytes 28.2 % 19-41 [facility] MCV (RBC) [Entitic vol]Order ed By: Lizet Linares on 11-10-2024 MCV (mean corpuscular volume) determination 88.9 fL 81-99 [facility] Mean corpuscular hemoglobin (MCH) determinationOrdered By: Lizet Linares on 11-10-2024 Mean corpuscular hemoglobin (MCH) determination 28.1 pg 27.0-32.0 [facility] Mean corpuscular hemoglobin concentration (MCHC) determinationOrdered By: Lizet Linares on 11-10-2024 Mean corpuscular hemoglobin concentration (MCHC) determination 31.6 g/dL Low 32-36 [facility] Mean platelet volume determi nationOrdered By: Lizet Linares on 11-10-2024 Mean platelet volume determination 10.0 fl 6.2-12.0 [facility] Monocyte percentageOrdered B y: Lizet Linares on 11-10-2024 Monocyte percentage 6.0 % 0-10 [facility] Neutrophil percentageOrdered By: Lizet Linares on 11-10-2024 Neutrophil percentage 63.4 % 47-70 [facility] Nucleated red blood cell per centageOrdered By: Lizet Linares on 11-10-2024 Nucleated red blood cell percentage 0 % 0-5 [facility] Platelet countOrdered By: Junie Linares on 11-10-2024 Platelet count 334 K/mm3 150-450 [facility] Potassium measurementOrdered By: Lziet Linares on 11-10-2024 Potassium measurement 4.4 mmol/L 3.5-5.1 [facility] RBC Auto (Bld) [#/Vol]Ordere d By: Lizet Linares on 11-10-2024 Automated blood erythrocyte count 3.70 M/mm3 Low 4.2-5.4 [facility] Serum anion gap measurementO rdered By: Lizet Linares on 11-10-2024 Serum anion gap measurement 7 5-15 [facility] Sodium levelOrdered By: Holly Linares on 11-10-2024 Sodium level 134 mmol/L Low 136-145 [facility] Urea nitrogen [Mass/Vol]Orde red By: Lizet Linares on 11-10-2024 Serum or plasma urea nitrogen measurement (mass/volume) 23 mg/dL High 7-18 [facility] White blood cell (WBC) count Ordered By: Lizet Linares on 11-10-2024 White blood cell (WBC) count 7.1 K/mm3 4.4-11.0 [facility] Absolute neutrophil countOrd ered By: Lizet Linares on 11-03-2024 Absolute neutrophil count 3.0 X10^3/uL 2.0-7.7 [facility] Basophil percentageOrdered B y: Lizet Linares on 11-03-2024 Basophil percentage 0.5 % 0-1 [facility] Blood urea nitrogen (BUN)/cr eatinine ratioOrdered By: Lizet Linares on 11-03-2024 Blood urea nitrogen (BUN)/creatinine ratio 21.3 RATIO High 10-20 [facility] Calcium [Mass/Vol]Ordered By : Lizet Linares on 11-03-2024 Serum or plasma calcium measurement (mass/volume) 9.1 mg/dL 8.5-10.1 [facility] Carbon dioxide measurementOr dered By: Lizet Linares on 11-03-2024 Carbon dioxide measurement 26.0 mmol/L 21.0-32.0 [facility] Chloride measurementOrdered By: Lizet Linares on 11-03-2024 Chloride measurement 100 mmol/L 98-107 [facility] Creatinine [Mass/Vol]Ordered By: Lizet Linares on 11-03-2024 Serum or plasma creatinine measurement (mass/volume) 1.27 mg/dL High 0.55-1.02 [facility] Eosinophil percentageOrdered By: Lizet Linares on 11-03-2024 Eosinophil percentage 2.4 % 0-5 [facility] Erythrocyte distribution wid th (RBC) [Ratio]Ordered By: Lizet Linares on 11-03-2024 Erythrocyte distribution width ratio 13.9 % 11.6-14.6 [facility] Erythrocyte distribution wid th standard deviationOrdered By: Lizet Linares on 11-03-2024 Erythrocyte distribution width standard deviation 45.0 fl High 35.1-43.9 [facility] Estimated glomerular filtrat ion rate (GFR) AmericanOrdered By: Lizet Linares on 11-03-2024 Estimated glomerular filtration rate (GFR) 55 mL/min Low >60 [facility] Glomerular filtration rate ( GFR) estimationOrdered By: Lizet Linares on 11-03-2024 Glomerular filtration rate (GFR) estimation 45 mL/min Low >60 [facility] Glucose measurementOrdered B y: Lizet Linares on 11-03-2024 Glucose measurement 352 mg/dL High 74-106 [facility] Hematocrit Auto (Bld) [Volum e fraction]Ordered By: Lizet Linares on 11-03-2024 Automated blood hematocrit (percentage) 33.0 % Low 37-47 [facility] Hemoglobin measurementOrdere d By: Lizet Linares on 11-03-2024 Hemoglobin measurement 10.2 g/dL Low 12.0-15.0 [facility] Immature granulocytes/100 WB C Auto (Bld)Ordered By: Lizet Linares on 11-03-2024 Automated immature granulocyte percentage 0.500 % 0.0-0.9 [facility] Lymphocytes Auto (Unsp spec) [#/Vol]Ordered By: Lizet Linares on 11-03-2024 Absolute lymphocyte count 1.95 X10^3/uL 0.83-4. 51 [facility] Lymphocytes/100 WBC Auto (Un sp spec)Ordered By: Lizet Linares on 11-03-2024 Automated lymphocyte count as percentage of total leukocytes 35.6 % 19-41 [facility] MCV (RBC) [Entitic vol]Order ed By: Lizet Linares on 11-03-2024 MCV (mean corpuscular volume) determination 89.2 fL 81-99 [facility] Mean corpuscular hemoglobin (MCH) determinationOrdered By: Lizet Linares on 11-03-2024 Mean corpuscular hemoglobin (MCH) determination 27.6 pg 27.0-32.0 [facility] Mean corpuscular hemoglobin concentration (MCHC) determinationOrdered By: Lizet Linares on 11-03-2024 Mean corpuscular hemoglobin concentration (MCHC) determination 30.9 g/dL Low 32-36 [facility] Mean platelet volume determi nationOrdered By: Lizet Linares on 11-03-2024 Mean platelet volume determination 9.6 fl 6.2-12.0 [facility] Monocyte percentageOrdered B y: Lizet Linares on 11-03-2024 Monocyte percentage 6.4 % 0-10 [facility] Neutrophil percentageOrdered By: Lizet Linares on 11-03-2024 Neutrophil percentage 54.6 % 47-70 [facility] Nucleated red blood cell per centageOrdered By: Lizet Linares on 11-03-2024 Nucleated red blood cell percentage 0 % 0-5 [facility] Platelet countOrdered By: Junie Linares on 11-03-2024 Platelet count 331 K/mm3 150-450 [facility] Potassium measurementOrdered By: Lizet Linares on 11-03-2024 Potassium measurement 4.1 mmol/L 3.5-5.1 [facility] RBC Auto (Bld) [#/Vol]Ordere d By: Lizet Linares on 11-03-2024 Automated blood erythrocyte count 3.70 M/mm3 Low 4.2-5.4 [facility] Serum anion gap measurementO rdered By: Lizet Linares on 11-03-2024 Serum anion gap measurement 6 5-15 [facility] Sodium levelOrdered By: Holly Linares on 11-03-2024 Sodium level 133 mmol/L Low 136-145 [facility] Urea nitrogen [Mass/Vol]Orde red By: Lizet Linares on 11-03-2024 Serum or plasma urea nitrogen measurement (mass/volume) 27 mg/dL High 7-18 [facility] White blood cell (WBC) count Ordered By: Lizet Linares on 11-03-2024 White blood cell (WBC) count 5.5 K/mm3 4.4-11.0 [facility] TSH QnOrdered By: Lizet Linares on 11-01-2024 Serum or plasma thyroid stimulating hormone (TSH) measurement (units/volume) 2.030 uIU/mL 0.358-3.74 0 [facility] Absolute neutrophil countOrd ered By: Lizet Linares on 10-27-2024 Absolute neutrophil count 3.1 X10^3/uL 2.0-7.7 [facility] Basophil percentageOrdered B y: Lizet Linares on 10-27-2024 Basophil percentage 0.4 % 0-1 [facility] Blood urea nitrogen (BUN)/cr eatinine ratioOrdered By: Lizet Linares on 10-27-2024 Blood urea nitrogen (BUN)/creatinine ratio 17.7 RATIO 10-20 [facility] Calcium [Mass/Vol]Ordered By : Lizet Linares on 10-27-2024 Serum or plasma calcium measurement (mass/volume) 8.3 mg/dL Low 8.5-10.1 [facility] Carbon dioxide measurementOr dered By: Lizet Linares on 10-27-2024 Carbon dioxide measurement 25.0 mmol/L 21.0-32.0 [facility] Chloride measurementOrdered By: Lizet Linares on 10-27-2024 Chloride measurement 100 mmol/L 98-107 [facility] Creatinine [Mass/Vol]Ordered By: Lizet Linares on 10-27-2024 Serum or plasma creatinine measurement (mass/volume) 1.41 mg/dL High 0.55-1.02 [facility] Eosinophil percentageOrdered By: Lizet Linares on 10-27-2024 Eosinophil percentage 2.4 % 0-5 [facility] Erythrocyte distribution wid th (RBC) [Ratio]Ordered By: Lizet Linares on 10-27-2024 Erythrocyte distribution width ratio 13.9 % 11.6-14.6 [facility] Erythrocyte distribution wid th standard deviationOrdered By: Lizet Linares on 10-27-2024 Erythrocyte distribution width standard deviation 44.4 fl High 35.1-43.9 [facility] Estimated glomerular filtrat ion rate (GFR) AmericanOrdered By: Lizet Linares on 10-27-2024 Estimated glomerular filtration rate (GFR) 49 mL/min Low >60 [facility] Glomerular filtration rate ( GFR) estimationOrdered By: Lizet Linares on 10-27-2024 Glomerular filtration rate (GFR) estimation 40 mL/min Low >60 [facility] Glucose measurementOrdered B y: Lizet Linares on 10-27-2024 Glucose measurement 425 mg/dL High 74-106 [facility] Hematocrit Auto (Bld) [Volum e fraction]Ordered By: Lizet Linares on 10-27-2024 Automated blood hematocrit (percentage) 28.7 % Low 37-47 [facility] Hemoglobin measurementOrdere d By: Lizet Linares on 10-27-2024 Hemoglobin measurement 9.2 g/dL Low 12.0-15.0 [facility] Immature granulocytes/100 WB C Auto (Bld)Ordered By: Lizet Linares on 10-27-2024 Automated immature granulocyte percentage 0.400 % 0.0-0.9 [facility] Lymphocytes Auto (Unsp spec) [#/Vol]Ordered By: Lizet Linares on 10-27-2024 Absolute lymphocyte count 1.77 X10^3/uL 0.83-4. 51 [facility] Lymphocytes/100 WBC Auto (Un sp spec)Ordered By: Lizet Linares on 10-27-2024 Automated lymphocyte count as percentage of total leukocytes 32.8 % 19-41 [facility] MCV (RBC) [Entitic vol]Order ed By: Lizet Linares on 10-27-2024 MCV (mean corpuscular volume) determination 87.8 fL 81-99 [facility] Mean corpuscular hemoglobin (MCH) determinationOrdered By: Lizet Linares on 10-27-2024 Mean corpuscular hemoglobin (MCH) determination 28.1 pg 27.0-32.0 [facility] Mean corpuscular hemoglobin concentration (MCHC) determinationOrdered By: Lizet Linares on 10-27-2024 Mean corpuscular hemoglobin concentration (MCHC) determination 32.1 g/dL 32-36 [facility] Mean platelet volume determi nationOrdered By: Lizet Linares on 10-27-2024 Mean platelet volume determination 10.1 fl 6.2-12.0 [facility] Monocyte percentageOrdered B y: Lizet Linares on 10-27-2024 Monocyte percentage 5.9 % 0-10 [facility] Neutrophil percentageOrdered By: Lizet Linares on 10-27-2024 Neutrophil percentage 58.1 % 47-70 [facility] Nucleated red blood cell per centageOrdered By: Lizet iLnares on 10-27-2024 Nucleated red blood cell percentage 0 % 0-5 [facility] Platelet countOrdered By: Junie Linares on 10-27-2024 Platelet count 292 K/mm3 150-450 [facility] Potassium measurementOrdered By: Lizet Linares on 10-27-2024 Potassium measurement 4.0 mmol/L 3.5-5.1 [facility] RBC Auto (Bld) [#/Vol]Ordere d By: Lizet Linares on 10-27-2024 Automated blood erythrocyte count 3.27 M/mm3 Low 4.2-5.4 [facility] Serum anion gap measurementO rdered By: Lizet Linares on 10-27-2024 Serum anion gap measurement 8 5-15 [facility] Sodium levelOrdered By: Holly Linares on 10-27-2024 Sodium level 132 mmol/L Low 136-145 [facility] Urea nitrogen [Mass/Vol]Orde red By: Lizet Linares on 10-27-2024 Serum or plasma urea nitrogen measurement (mass/volume) 25 mg/dL High 7-18 [facility] White blood cell (WBC) count Ordered By: Lizet Linares on 10-27-2024 White blood cell (WBC) count 5.4 K/mm3 4.4-11.0 [facility] ALP [Catalytic activity/Vol] Ordered By: Salvador Campbell on 10-24-2024 Serum or plasma alkaline phosphatase measurement 49 U/L 45-117 [facility] ALT [Catalytic activity/Vol] Ordered By: Salvador Campbell on 10-24-2024 Serum or plasma alanine aminotransferase (ALT) measurement 25 U/L 13-56 [facility] Absolute neutrophil countOrd ered By: Salvador Campbell on 10-24-2024 Absolute neutrophil count 4.0 X10^3/uL 2.0-7.7 [facility] Albumin [Mass/Vol]Ordered By : Salvador Campbell on 10-24-2024 Serum or plasma albumin measurement (mass/volume) 3.0 g/dL Low 3.2-5.0 [facility] Albumin to globulin ratioOrd ered By: Salvador Campbell on 10-24-2024 Albumin to globulin ratio 0.8 RATIO Low 0.9-2.4 [facility] Basophil percentageOrdered B y: Salvador Campbell on 10-24-2024 Basophil percentage 0.7 % 0-1 [facility] Bilirubin, totalOrdered By: Salvador Campbell on 10-24-2024 Bilirubin, total 0.30 mg/dL 0.20-1.00 [facility] Blood urea nitrogen (BUN)/cr eatinine ratioOrdered By: Salvador Campbell on 10-24-2024 Blood urea nitrogen (BUN)/creatinine ratio 21.1 RATIO High 10-20 [facility] Calcium [Mass/Vol]Ordered By : Salvador Campbell on 10-24-2024 Serum or plasma calcium measurement (mass/volume) 8.8 mg/dL 8.5-10.1 [facility] Carbon dioxide measurementOr dered By: Salvador Campbell on 10-24-2024 Carbon dioxide measurement 26.0 mmol/L 21.0-32.0 [facility] Chloride measurementOrdered By: Salvador Campbell on 10-24-2024 Chloride measurement 100 mmol/L 98-107 [facility] Clarity (U)Ordered By: Natan Campbell on 10-24-2024 Urine clarity Clear Clear [facility] Color (U)Ordered By: Salvador Campbell on 10-24-2024 Urine color determination Yellow Yellow [facility] Creatinine [Mass/Vol]Ordered By: Salvador Campbell on 10-24-2024 Serum or plasma creatinine measurement (mass/volume) 1.28 mg/dL High 0.55-1.02 [facility] Eosinophil percentageOrdered By: Salvador Campbell on 10-24-2024 Eosinophil percentage 2.2 % 0-5 [facility] Epithelial cells.squamous LM Ql (Urine sed)Ordered By: Salvador Campbell on 10-24-2024 Squamous epithelial cells detection in urine sediment by light microscopy 0-5 SEEN /hpf 5-10 [facility] Erythrocyte distribution wid th (RBC) [Ratio]Ordered By: Salvador Campbell on 10-24-2024 Erythrocyte distribution width ratio 13.6 % 11.6-14.6 [facility] Erythrocyte distribution wid th standard deviationOrdered By: Salvador Campbell on 10-24-2024 Erythrocyte distribution width standard deviation 44.1 fl High 35.1-43.9 [facility] Estimated glomerular filtrat ion rate (GFR) AmericanOrdered By: Salvador Campbell on 10-24-2024 Estimated glomerular filtration rate (GFR) 55 mL/min Low >60 [facility] Estimation of creatinine jacqui aranceOrdered By: Salvador Campbell on 10-24-2024 Estimation of creatinine clearance 46.41 ml/min [facility] Glomerular filtration rate ( GFR) estimationOrdered By: Salvador Campbell on 10-24-2024 Glomerular filtration rate (GFR) estimation 45 mL/min Low >60 [facility] Glucose Ql (U)Ordered By: Malachi Campbell on 10-24-2024 Urine glucose detection 250 mg/dl High Normal [facility] Glucose measurementOrdered B y: Salvador Campbell on 10-24-2024 Glucose measurement 328 mg/dL High 74-106 [facility] Hematocrit Auto (Bld) [Volum e fraction]Ordered By: Salvador Campbell on 10-24-2024 Automated blood hematocrit (percentage) 33.6 % Low 37-47 [facility] Hemoglobin measurementOrdere d By: Salvador Campbell on 10-24-2024 Hemoglobin measurement 10.4 g/dL Low 12.0-15.0 [facility] Immature granulocytes/100 WB C Auto (Bld)Ordered By: Salvador Campbell on 10-24-2024 Automated immature granulocyte percentage 0.900 % 0.0-0.9 [facility] Lactic acid measurementOrder ed By: Salvador Campbell on 10-24-2024 Lactic acid measurement 1.7 mmol/L 0.4-2.0 [facility] Lymphocytes Auto (Unsp spec) [#/Vol]Ordered By: Salvador Campbell on 10-24-2024 Absolute lymphocyte count 2.05 X10^3/uL 0.83-4. 51 [facility] Lymphocytes/100 WBC Auto (Un sp spec)Ordered By: Salvador Campbell on 10-24-2024 Automated lymphocyte count as percentage of total leukocytes 30.7 % 19-41 [facility] MCV (RBC) [Entitic vol]Order ed By: Salvador Campbell on 10-24-2024 MCV (mean corpuscular volume) determination 88.9 fL 81-99 [facility] Mean corpuscular hemoglobin (MCH) determinationOrdered By: Salvador Campbell on 10-24-2024 Mean corpuscular hemoglobin (MCH) determination 27.5 pg 27.0-32.0 [facility] Mean corpuscular hemoglobin concentration (MCHC) determinationOrdered By: Salvador Campbell on 10-24-2024 Mean corpuscular hemoglobin concentration (MCHC) determination 31.0 g/dL Low 32-36 [facility] Mean platelet volume determi nationOrdered By: Salvador Campbell on 10-24-2024 Mean platelet volume determination 9.7 fl 6.2-12.0 [facility] Monocyte percentageOrdered B y: Salvador Campbell on 10-24-2024 Monocyte percentage 5.7 % 0-10 [facility] Neutrophil percentageOrdered By: Salvador Campbell on 10-24-2024 Neutrophil percentage 59.8 % 47-70 [facility] No Panel InformationOrdered By: Salvador Campbell on 10-24-2024 32 U/L 15-37 [facility] Nucleated red blood cell per centageOrdered By: Salvador Campbell on 10-24-2024 Nucleated red blood cell percentage 0 % 0-5 [facility] Platelet countOrdered By: nakul Campbell on 10-24-2024 Platelet count 352 K/mm3 150-450 [facility] Potassium measurementOrdered By: Salvador Campbell on 10-24-2024 Potassium measurement 4.1 mmol/L 3.5-5.1 [facility] Protein Test strip Ql (U)Ord ered By: Salvador Campbell on 10-24-2024 Urine protein assay by test strip, semi-quantitative 15 mg/dl High Negative [facility] RBC Auto (Bld) [#/Vol]Ordere d By: Salvador Campbell on 10-24-2024 Automated blood erythrocyte count 3.78 M/mm3 Low 4.2-5.4 [facility] Serum anion gap measurementO rdered By: Salvador Campbell on 10-24-2024 Serum anion gap measurement 8 5-15 [facility] Serum globulin measurementOr dered By: Salvador Campbell on 10-24-2024 Serum globulin measurement 3.8 g/dL 2.2-4.2 [facility] Sodium levelOrdered By: Charles Campbell on 10-24-2024 Sodium level 135 mmol/L Low 136-145 [facility] Specific gravity (U) [Rel de nsity]Ordered By: Salvador Campbell on 10-24-2024 Urine specific gravity measurement 1.015 1.002-1.03 0 [facility] Total proteinOrdered By: Roldan Campbell on 10-24-2024 Total protein 6.8 g/dL 6.4-8.2 [facility] Urea nitrogen [Mass/Vol]Orde red By: Salvador Campbell on 10-24-2024 Serum or plasma urea nitrogen measurement (mass/volume) 27 mg/dL High 7-18 [facility] Urine total bilirubin detect ion by test stripOrdered By: Salvador Campbell on 10-24-2024 Urine total bilirubin detection by test strip Negative Negative [facility] Urobilinogen Ql (U)Ordered B y: Salvador Campbell on 10-24-2024 Urine urobilinogen measurement Normal mg/dl Normal [facility] White blood cell (WBC) count Ordered By: Salvador Campbell on 10-24-2024 White blood cell (WBC) count 6.7 K/mm3 4.4-11.0 [facility] White blood cell countOrdere d By: Salvador Campbell on 10-24-2024 White blood cell count 0 SEEN /hpf [facility] pH (U)Ordered By: Padmini on 10-24-2024 Urine pH 6.0 5.0 - 8.0 [facility] Absolute neutrophil countOrd ered By: Lizet Linares on 10-20-2024 Absolute neutrophil count 3.2 X10^3/uL 2.0-7.7 [facility] Basophil percentageOrdered B y: Lizet Linares on 10-20-2024 Basophil percentage 0.7 % 0-1 [facility] Blood urea nitrogen (BUN)/cr eatinine ratioOrdered By: Lizet Linares on 10-20-2024 Blood urea nitrogen (BUN)/creatinine ratio 22.0 RATIO High 10-20 [facility] Calcium [Mass/Vol]Ordered By : Lizet Linares on 10-20-2024 Serum or plasma calcium measurement (mass/volume) 8.4 mg/dL Low 8.5-10.1 [facility] Carbon dioxide measurementOr dered By: Lizet Linares on 10-20-2024 Carbon dioxide measurement 27.0 mmol/L 21.0-32.0 [facility] Chloride measurementOrdered By: Lizet Linares on 10-20-2024 Chloride measurement 102 mmol/L 98-107 [facility] Creatinine [Mass/Vol]Ordered By: Lizet Linares on 10-20-2024 Serum or plasma creatinine measurement (mass/volume) 1.27 mg/dL High 0.55-1.02 [facility] Eosinophil percentageOrdered By: Lizet Linares on 10-20-2024 Eosinophil percentage 3.1 % 0-5 [facility] Erythrocyte distribution wid th (RBC) [Ratio]Ordered By: Lizet Linares on 10-20-2024 Erythrocyte distribution width ratio 13.6 % 11.6-14.6 [facility] Erythrocyte distribution wid th standard deviationOrdered By: Lizet Linares on 10-20-2024 Erythrocyte distribution width standard deviation 44.0 fl High 35.1-43.9 [facility] Estimated glomerular filtrat ion rate (GFR) AmericanOrdered By: Lizet Linares on 10-20-2024 Estimated glomerular filtration rate (GFR) 55 mL/min Low >60 [facility] Glomerular filtration rate ( GFR) estimationOrdered By: Lizet Linares on 10-20-2024 Glomerular filtration rate (GFR) estimation 45 mL/min Low >60 [facility] Glucose measurementOrdered B y: Lizet Linares on 10-20-2024 Glucose measurement 277 mg/dL High 74-106 [facility] Hematocrit Auto (Bld) [Volum e fraction]Ordered By: Lizet Linares on 10-20-2024 Automated blood hematocrit (percentage) 30.6 % Low 37-47 [facility] Hemoglobin measurementOrdere d By: Lizet Linares on 10-20-2024 Hemoglobin measurement 9.6 g/dL Low 12.0-15.0 [facility] Immature granulocytes/100 WB C Auto (Bld)Ordered By: Lizet Linares on 10-20-2024 Automated immature granulocyte percentage 0.300 % 0.0-0.9 [facility] Lymphocytes Auto (Unsp spec) [#/Vol]Ordered By: Lizet Linares on 10-20-2024 Absolute lymphocyte count 2.38 X10^3/uL 0.83-4. 51 [facility] Lymphocytes/100 WBC Auto (Un sp spec)Ordered By: Lizet Linares on 10-20-2024 Automated lymphocyte count as percentage of total leukocytes 38.9 % 19-41 [facility] MCV (RBC) [Entitic vol]Order ed By: Lizet Linares on 10-20-2024 MCV (mean corpuscular volume) determination 88.7 fL 81-99 [facility] Mean corpuscular hemoglobin (MCH) determinationOrdered By: Lizet Linares on 10-20-2024 Mean corpuscular hemoglobin (MCH) determination 27.8 pg 27.0-32.0 [facility] Mean corpuscular hemoglobin concentration (MCHC) determinationOrdered By: Lizet Linares on 10-20-2024 Mean corpuscular hemoglobin concentration (MCHC) determination 31.4 g/dL Low 32-36 [facility] Mean platelet volume determi nationOrdered By: Lizet Linares on 10-20-2024 Mean platelet volume determination 9.8 fl 6.2-12.0 [facility] Monocyte percentageOrdered B y: Lizet Linares on 10-20-2024 Monocyte percentage 5.2 % 0-10 [facility] Neutrophil percentageOrdered By: Lizet Linares on 10-20-2024 Neutrophil percentage 51.8 % 47-70 [facility] Nucleated red blood cell per centageOrdered By: Lizet Linares on 10-20-2024 Nucleated red blood cell percentage 0 % 0-5 [facility] Platelet countOrdered By: Junie Linares on 10-20-2024 Platelet count 325 K/mm3 150-450 [facility] Potassium measurementOrdered By: Lizet Linares on 10-20-2024 Potassium measurement 3.9 mmol/L 3.5-5.1 [facility] RBC Auto (Bld) [#/Vol]Ordere d By: Lizet Linares on 10-20-2024 Automated blood erythrocyte count 3.45 M/mm3 Low 4.2-5.4 [facility] Serum anion gap measurementO rdered By: Lizet Linares on 10-20-2024 Serum anion gap measurement 6 5-15 [facility] Sodium levelOrdered By: Holly Linares on 10-20-2024 Sodium level 135 mmol/L Low 136-145 [facility] Urea nitrogen [Mass/Vol]Orde red By: Lizet Linares on 10-20-2024 Serum or plasma urea nitrogen measurement (mass/volume) 28 mg/dL High 7-18 [facility] White blood cell (WBC) count Ordered By: Lizet Linares on 10-20-2024 White blood cell (WBC) count 6.1 K/mm3 4.4-11.0 [facility] Absolute neutrophil countOrd ered By: Lizet Linares on 10-13-2024 Absolute neutrophil count 3.3 X10^3/uL 2.0-7.7 [facility] Basophil percentageOrdered B y: Lizet Linares on 10-13-2024 Basophil percentage 0.8 % 0-1 [facility] Blood urea nitrogen (BUN)/cr eatinine ratioOrdered By: Lizte Linares on 10-13-2024 Blood urea nitrogen (BUN)/creatinine ratio 13.7 RATIO - [facility] Calcium [Mass/Vol]Ordered By : Lizet Linares on 10-13-2024 Serum or plasma calcium measurement (mass/volume) 9.0 mg/dL 8.5-10.1 [facility] Carbon dioxide measurementOr dered By: Lizet Linares on 10-13-2024 Carbon dioxide measurement 28.0 mmol/L 21.0-32.0 [facility] Chloride measurementOrdered By: Lizet Linares on 10-13-2024 Chloride measurement 103 mmol/L 98-107 [facility] Creatinine [Mass/Vol]Ordered By: Lizet Linares on 10-13-2024 Serum or plasma creatinine measurement (mass/volume) 1.31 mg/dL High 0.55-1.02 [facility] Eosinophil percentageOrdered By: Lizet Linares on 10-13-2024 Eosinophil percentage 2.5 % 0-5 [facility] Erythrocyte distribution wid th (RBC) [Ratio]Ordered By: Lizet Linares on 10-13-2024 Erythrocyte distribution width ratio 13.8 % 11.6-14.6 [facility] Erythrocyte distribution wid th standard deviationOrdered By: Lizet Linares on 10-13-2024 Erythrocyte distribution width standard deviation 44.6 fl High 35.1-43.9 [facility] Estimated glomerular filtrat ion rate (GFR) AmericanOrdered By: Lizet Linares on 10-13-2024 Estimated glomerular filtration rate (GFR) 53 mL/min Low >60 [facility] Glomerular filtration rate ( GFR) estimationOrdered By: Lizet Linares on 10-13-2024 Glomerular filtration rate (GFR) estimation 44 mL/min Low >60 [facility] Glucose measurementOrdered B y: Lizet Linares on 10-13-2024 Glucose measurement 234 mg/dL High 74-106 [facility] Hematocrit Auto (Bld) [Volum e fraction]Ordered By: Lizet Linares on 10-13-2024 Automated blood hematocrit (percentage) 34.2 % Low 37-47 [facility] Hemoglobin measurementOrdere d By: Lizet Linares on 10-13-2024 Hemoglobin measurement 10.9 g/dL Low 12.0-15.0 [facility] Immature granulocytes/100 WB C Auto (Bld)Ordered By: Lizet Linares on 10-13-2024 Automated immature granulocyte percentage 0.500 % 0.0-0.9 [facility] Lymphocytes Auto (Unsp spec) [#/Vol]Ordered By: Lizet Linares on 10-13-2024 Absolute lymphocyte count 2.10 X10^3/uL 0.83-4. 51 [facility] Lymphocytes/100 WBC Auto (Un sp spec)Ordered By: Lizet Linares on 10-13-2024 Automated lymphocyte count as percentage of total leukocytes 35.3 % 19-41 [facility] MCV (RBC) [Entitic vol]Order ed By: Lizet Linares on 10-13-2024 MCV (mean corpuscular volume) determination 88.6 fL 81-99 [facility] Mean corpuscular hemoglobin (MCH) determinationOrdered By: Lizet Linares on 10-13-2024 Mean corpuscular hemoglobin (MCH) determination 28.2 pg 27.0-32.0 [facility] Mean corpuscular hemoglobin concentration (MCHC) determinationOrdered By: Lizet Linares on 10-13-2024 Mean corpuscular hemoglobin concentration (MCHC) determination 31.9 g/dL Low 32-36 [facility] Mean platelet volume determi nationOrdered By: Lizet Linares on 10-13-2024 Mean platelet volume determination 9.7 fl 6.2-12.0 [facility] Monocyte percentageOrdered B y: Lizet Linares on 10-13-2024 Monocyte percentage 6.2 % 0-10 [facility] Neutrophil percentageOrdered By: Lizet Linares on 10-13-2024 Neutrophil percentage 54.7 % 47-70 [facility] Nucleated red blood cell per centageOrdered By: Lizet Linares on 10-13-2024 Nucleated red blood cell percentage 0 % 0-5 [facility] Platelet countOrdered By: Junie Linares on 10-13-2024 Platelet count 361 K/mm3 150-450 [facility] Potassium measurementOrdered By: Lizet Linares on 10-13-2024 Potassium measurement 3.9 mmol/L 3.5-5.1 [facility] RBC Auto (Bld) [#/Vol]Ordere d By: Lizet Linares on 10-13-2024 Automated blood erythrocyte count 3.86 M/mm3 Low 4.2-5.4 [facility] Serum anion gap measurementO rdered By: Lizet Linares on 10-13-2024 Serum anion gap measurement 5 5-15 [facility] Sodium levelOrdered By: Holly Linares on 10-13-2024 Sodium level 136 mmol/L 136-145 [facility] Urea nitrogen [Mass/Vol]Orde red By: Lizet Linarse on 10-13-2024 Serum or plasma urea nitrogen measurement (mass/volume) 18 mg/dL 7-18 [facility] White blood cell (WBC) count Ordered By: Lizet Linares on 10-13-2024 White blood cell (WBC) count 6.0 K/mm3 4.4-11.0 [facility] Absolute neutrophil countOrd ered By: Lizet Linares on 10-06-2024 Absolute neutrophil count 2.8 X10^3/uL 2.0-7.7 [facility] Basophil percentageOrdered B y: Lizet Linares on 10-06-2024 Basophil percentage 0.5 % 0-1 [facility] Blood urea nitrogen (BUN)/cr eatinine ratioOrdered By: Lizet Linares on 10-06-2024 Blood urea nitrogen (BUN)/creatinine ratio 15.5 RATIO 10-20 [facility] Calcium [Mass/Vol]Ordered By : Lizet Linares on 10-06-2024 Serum or plasma calcium measurement (mass/volume) 8.6 mg/dL 8.5-10.1 [facility] Carbon dioxide measurementOr dered By: Lizet Linares on 10-06-2024 Carbon dioxide measurement 26.0 mmol/L 21.0-32.0 [facility] Chloride measurementOrdered By: Lizet Linares on 10-06-2024 Chloride measurement 106 mmol/L 98-107 [facility] Creatinine [Mass/Vol]Ordered By: Lizet Linares on 10-06-2024 Serum or plasma creatinine measurement (mass/volume) 1.16 mg/dL High 0.55-1.02 [facility] Eosinophil percentageOrdered By: Lizet Linares on 10-06-2024 Eosinophil percentage 3.4 % 0-5 [facility] Erythrocyte distribution wid th (RBC) [Ratio]Ordered By: Lizet Linares on 10-06-2024 Erythrocyte distribution width ratio 14.0 % 11.6-14.6 [facility] Erythrocyte distribution wid th standard deviationOrdered By: Lizet Linares on 10-06-2024 Erythrocyte distribution width standard deviation 45.4 fl High 35.1-43.9 [facility] Estimated glomerular filtrat ion rate (GFR) AmericanOrdered By: Lizet Linares on 10-06-2024 Estimated glomerular filtration rate (GFR) 61 mL/min >60 [facility] Glomerular filtration rate ( GFR) estimationOrdered By: Lizet Linares on 10-06-2024 Glomerular filtration rate (GFR) estimation 50 mL/min Low >60 [facility] Glucose measurementOrdered B y: Lizet Linares on 10-06-2024 Glucose measurement 204 mg/dL High 74-106 [facility] Hematocrit Auto (Bld) [Volum e fraction]Ordered By: Lizet Linares on 10-06-2024 Automated blood hematocrit (percentage) 30.7 % Low 37-47 [facility] Hemoglobin measurementOrdere d By: Lizet Linares on 10-06-2024 Hemoglobin measurement 9.8 g/dL Low 12.0-15.0 [facility] Immature granulocytes/100 WB C Auto (Bld)Ordered By: Lizet Linares on 10-06-2024 Automated immature granulocyte percentage 0.300 % 0.0-0.9 [facility] Lymphocytes Auto (Unsp spec) [#/Vol]Ordered By: Lizet Linares on 10-06-2024 Absolute lymphocyte count 2.46 X10^3/uL 0.83-4. 51 [facility] Lymphocytes/100 WBC Auto (Un sp spec)Ordered By: Lizet Linares on 10-06-2024 Automated lymphocyte count as percentage of total leukocytes 41.8 % High 19-41 [facility] MCV (RBC) [Entitic vol]Order ed By: Lizet Linares on 10-06-2024 MCV (mean corpuscular volume) determination 89.2 fL 81-99 [facility] Mean corpuscular hemoglobin (MCH) determinationOrdered By: Lizet Linares on 10-06-2024 Mean corpuscular hemoglobin (MCH) determination 28.5 pg 27.0-32.0 [facility] Mean corpuscular hemoglobin concentration (MCHC) determinationOrdered By: Lizet Linares on 10-06-2024 Mean corpuscular hemoglobin concentration (MCHC) determination 31.9 g/dL Low 32-36 [facility] Mean platelet volume determi nationOrdered By: Lizet Linares on 10-06-2024 Mean platelet volume determination 9.4 fl 6.2-12.0 [facility] Monocyte percentageOrdered B y: Lizet Linares on 10-06-2024 Monocyte percentage 7.1 % 0-10 [facility] Neutrophil percentageOrdered By: Lizet Linares on 10-06-2024 Neutrophil percentage 46.9 % Low 47-70 [facility] Nucleated red blood cell per centageOrdered By: Lizet Linares on 10-06-2024 Nucleated red blood cell percentage 0 % 0-5 [facility] Platelet countOrdered By: Junie Linares on 10-06-2024 Platelet count 330 K/mm3 150-450 [facility] Potassium measurementOrdered By: Lizet Linares on 10-06-2024 Potassium measurement 3.9 mmol/L 3.5-5.1 [facility] RBC Auto (Bld) [#/Vol]Ordere d By: Lizet Linares on 10-06-2024 Automated blood erythrocyte count 3.44 M/mm3 Low 4.2-5.4 [facility] Serum anion gap measurementO rdered By: Lizet Linares on 10-06-2024 Serum anion gap measurement 6 5-15 [facility] Sodium levelOrdered By: Holly Linares on 10-06-2024 Sodium level 138 mmol/L 136-145 [facility] Urea nitrogen [Mass/Vol]Orde red By: Lizet Linares on 10-06-2024 Serum or plasma urea nitrogen measurement (mass/volume) 18 mg/dL 7-18 [facility] White blood cell (WBC) count Ordered By: Lizet Linares on 10-06-2024 White blood cell (WBC) count 5.9 K/mm3 4.4-11.0 [facility] Absolute neutrophil countOrd ered By: Lizet Linares on 09-29-2024 Absolute neutrophil count 3.1 X10^3/uL 2.0-7.7 [facility] Basophil percentageOrdered B y: Lizet Linares on 09-29-2024 Basophil percentage 0.5 % 0-1 [facility] Blood urea nitrogen (BUN)/cr eatinine ratioOrdered By: Lizet Linares on 09-29-2024 Blood urea nitrogen (BUN)/creatinine ratio 18.3 RATIO 10-20 [facility] Calcium [Mass/Vol]Ordered By : Lizet Linares on 09-29-2024 Serum or plasma calcium measurement (mass/volume) 8.6 mg/dL 8.5-10.1 [facility] Carbon dioxide measurementOr dered By: Lizet Linares on 09-29-2024 Carbon dioxide measurement 26.0 mmol/L 21.0-32.0 [facility] Chloride measurementOrdered By: Lizet Linares on 09-29-2024 Chloride measurement 105 mmol/L 98-107 [facility] Creatinine [Mass/Vol]Ordered By: Lizet Linares on 09-29-2024 Serum or plasma creatinine measurement (mass/volume) 1.20 mg/dL High 0.55-1.02 [facility] Eosinophil percentageOrdered By: Lizet Linares on 09-29-2024 Eosinophil percentage 1.7 % 0-5 [facility] Erythrocyte distribution wid th (RBC) [Ratio]Ordered By: Lizet Linares on 09-29-2024 Erythrocyte distribution width ratio 14.1 % 11.6-14.6 [facility] Erythrocyte distribution wid th standard deviationOrdered By: Lizet Linares on 09-29-2024 Erythrocyte distribution width standard deviation 45.8 fl High 35.1-43.9 [facility] Estimated glomerular filtrat ion rate (GFR) AmericanOrdered By: Lizet Linares on 09-29-2024 Estimated glomerular filtration rate (GFR) 59 mL/min Low >60 [facility] Glomerular filtration rate ( GFR) estimationOrdered By: Lizet Linares on 09-29-2024 Glomerular filtration rate (GFR) estimation 49 mL/min Low >60 [facility] Glucose measurementOrdered B y: Lizet Linares on 09-29-2024 Glucose measurement 193 mg/dL High 74-106 [facility] Hematocrit Auto (Bld) [Volum e fraction]Ordered By: Lizet Linares on 09-29-2024 Automated blood hematocrit (percentage) 30.8 % Low 37-47 [facility] Hemoglobin measurementOrdere d By: Lizet Linares on 09-29-2024 Hemoglobin measurement 9.8 g/dL Low 12.0-15.0 [facility] Immature granulocytes/100 WB C Auto (Bld)Ordered By: Lizet Linares on 09-29-2024 Automated immature granulocyte percentage 0.500 % 0.0-0.9 [facility] Lymphocytes Auto (Unsp spec) [#/Vol]Ordered By: Lizet Linares on 09-29-2024 Absolute lymphocyte count 2.13 X10^3/uL 0.83-4. 51 [facility] Lymphocytes/100 WBC Auto (Un sp spec)Ordered By: Lizet Linares on 09-29-2024 Automated lymphocyte count as percentage of total leukocytes 37.2 % 19-41 [facility] MCV (RBC) [Entitic vol]Order ed By: Lizet Linares on 09-29-2024 MCV (mean corpuscular volume) determination 89.5 fL 81-99 [facility] Mean corpuscular hemoglobin (MCH) determinationOrdered By: Lizet Linares on 09-29-2024 Mean corpuscular hemoglobin (MCH) determination 28.5 pg 27.0-32.0 [facility] Mean corpuscular hemoglobin concentration (MCHC) determinationOrdered By: Lizet Linares on 09-29-2024 Mean corpuscular hemoglobin concentration (MCHC) determination 31.8 g/dL Low 32-36 [facility] Mean platelet volume determi nationOrdered By: Lizet Linares on 09-29-2024 Mean platelet volume determination 9.6 fl 6.2-12.0 [facility] Monocyte percentageOrdered B y: Lizet Linares on 09-29-2024 Monocyte percentage 6.5 % 0-10 [facility] Neutrophil percentageOrdered By: Lizet Linares on 09-29-2024 Neutrophil percentage 53.6 % 47-70 [facility] Nucleated red blood cell per centageOrdered By: Lizet Linares on 09-29-2024 Nucleated red blood cell percentage 0 % 0-5 [facility] Platelet countOrdered By: Junie Linares on 09-29-2024 Platelet count 318 K/mm3 150-450 [facility] Potassium measurementOrdered By: Lizet Linares on 09-29-2024 Potassium measurement 3.8 mmol/L 3.5-5.1 [facility] RBC Auto (Bld) [#/Vol]Ordere d By: Lizet Linares on 09-29-2024 Automated blood erythrocyte count 3.44 M/mm3 Low 4.2-5.4 [facility] Serum anion gap measurementO rdered By: Lizet Linares on 09-29-2024 Serum anion gap measurement 7 5-15 [facility] Sodium levelOrdered By: Holly lrtia Milagros on 09-29-2024 Sodium level 138 mmol/L 136-145 [facility] Urea nitrogen [Mass/Vol]Orde red By: Lizet Linares on 09-29-2024 Serum or plasma urea nitrogen measurement (mass/volume) 22 mg/dL High 7-18 [facility] White blood cell (WBC) count Ordered By: Lizet Linares on 09-29-2024 White blood cell (WBC) count 5.7 K/mm3 4.4-11.0 [facility] Absolute lymphocyte countOrd ered By: Lizet Linares on 02-25-2024 Lymphocytes Auto (Unsp spec) [#/Vol] 2.72 10*3/uL 0.83-4.51 [facility] Automated lymphocyte count a s percentage of total leukocytesOrdered By: Lizet Linares on 02-25-2024 Lymphocytes/100 WBC Auto (Unsp spec) 38.5 % 19-41 [facility] Basophil percentageOrdered B y: Lizet Linares on 02-25-2024 Basophil percentage 10.6 g/dL 12.0-15.0 [facility] Basophil percentage 222 mg/dL 74-106 [facility] Basophil percentage 6.5 g/dL 6.4-8.2 [facility] Basophil percentage 0.30 mg/dL 0.20-1.00 [facility] Basophil percentage 138 mmol/L 136-145 [facility] Basophil percentage 4.0 mmol/L 3.5-5.1 [facility] Basophil percentage 105 mmol/L 98-107 [facility] Basophils (Bld) [#/Vol] 7.1 10*3/uL 4.4-11.0 [facility] Basophils (Bld) [#/Vol] 3.8 10*3/uL 2.0-7.7 [facility] Basophils/100 WBC (Bld) 53.5 % 47-70 [facility] Basophils/100 WBC (Bld) 5.4 % 0-10 [facility] Basophils/100 WBC (Bld) 1.8 % 0-5 [facility] Basophils/100 WBC (Bld) 0.4 % 0-1 [facility] Determination of erythrocyte mean corpuscular volume (MCV)Ordered By: Lizet Linares on 02-25-2024 MCV (RBC) [Entitic vol] 89.0 fL 81-99 [facility] Direct bilirubinOrdered By: Lizet Linares on 02-25-2024 Bilirubin.direct [Mass/Vol] 0.11 mg/dL 0.00-0.30 [facility] Erythrocyte distribution wid th ratioOrdered By: Lizet Linares on 02-25-2024 Erythrocyte distribution width (RBC) [Ratio] 13.6 % 11.6-14.6 [facility] Erythrocyte distribution wid th standard deviationOrdered By: Lizet Linares on 02-25-2024 Erythrocyte distribution width (RBC) [Entitic vol] 43.9 fL 35.1-43.9 [facility] Hematocrit Auto (Bld) [Volum e fraction]Ordered By: Lizet Linares on 02-25-2024 Hematocrit (Bld) [Volume fraction] 34.1 % 37-47 [facility] Immature granulocytes/100 WB C Auto (Bld)Ordered By: Lizet Linares on 02-25-2024 Immature granulocytes/100 WBC (Bld) 0.400 % 0.0-0.9 [facility] No Panel InformationOrdered By: Lizet Linares on 02-25-2024 27.7 pg 27.0-32.0 [facility] 31.1 g/dL 32-36 [facility] 335 K/mm3 150-450 [facility] 9.2 fl 6.2-12.0 [facility] 0 % 0-5 [facility] 50 mL/min >60 [facility] 61 mL/min >60 [facility] 12.8 RATIO 10-20 [facility] 3.8 g/dL 2.2-4.2 [facility] 45 U/L 45-117 [facility] 20 U/L 13-56 [facility] 25.0 mmol/L 21.0-32.0 [facility] RBC Auto (Bld) [#/Vol]Ordere d By: Lizet Linares on 02-25-2024 RBC (Bld) [#/Vol] 3.83 10*6/uL 4.2-5.4 [facility] Serum or plasma calcium tai urement (mass/volume)Ordered By: Lizet Linares on 02-25-2024 Calcium [Mass/Vol] 8.9 mg/dL 8.5-10.1 [facility] Serum or plasma creatinine m easurement (mass/volume)Ordered By: Lizet Linares on 02-25-2024 Creatinine [Mass/Vol] 1.17 mg/dL 0.55-1.02 [facility] Serum or plasma thyroid stim ulating hormone (TSH) measurement (units/volume)Ordered By: Lizet Linares on 02-25-2024 TSH Qn 0.07 uIU/mL 0.358-3.74 [facility] Serum or plasma urea nitroge n measurement (mass/volume)Ordered By: Lizet Linares on 02-25-2024 Urea nitrogen [Mass/Vol] 15 mg/dL 7-18 [facility] Thin prep Papanicolaou smear with manual screeningOrdered By: Lizet Linares on 02-25-2024 Thin prep Papanicolaou smear with manual screening 2.7 g/dL 3.2-5.0 [facility] Thin prep Papanicolaou smear with manual screening 15 U/L 15-37 [facility] Thin prep Papanicolaou smear with manual screening 8 5-15 [facility] Whole blood hemoglobin A1c/t otal hemoglobin ratio (mass fraction)Ordered By: Lizet Linares on 02-25-2024 HbA1c (Bld) [Mass fraction] 6.8 % 3.8-5.6 [facility] Absolute lymphocyte countOrd ered By: Lizet Linares on 02-18-2024 Lymphocytes Auto (Unsp spec) [#/Vol] 2.70 10*3/uL 0.83-4.51 [facility] Automated lymphocyte count a s percentage of total leukocytesOrdered By: Lizet Linares on 02-18-2024 Lymphocytes/100 WBC Auto (Unsp spec) 42.6 % 19-41 [facility] Basophil percentageOrdered B y: Lizet Linares on 02-18-2024 Basophil percentage 11.0 g/dL 12.0-15.0 [facility] Basophil percentage 180 mg/dL 74-106 [facility] Basophil percentage 139 mmol/L 136-145 [facility] Basophil percentage 4.2 mmol/L 3.5-5.1 [facility] Basophil percentage 107 mmol/L 98-107 [facility] Basophils (Bld) [#/Vol] 6.3 10*3/uL 4.4-11.0 [facility] Basophils (Bld) [#/Vol] 3.1 10*3/uL 2.0-7.7 [facility] Basophils/100 WBC (Bld) 48.9 % 47-70 [facility] Basophils/100 WBC (Bld) 6.0 % 0-10 [facility] Basophils/100 WBC (Bld) 1.3 % 0-5 [facility] Basophils/100 WBC (Bld) 0.6 % 0-1 [facility] Determination of erythrocyte mean corpuscular volume (MCV)Ordered By: Lizet Linares on 02-18-2024 MCV (RBC) [Entitic vol] 89.1 fL 81-99 [facility] Erythrocyte distribution wid th ratioOrdered By: Lizet Linares on 02-18-2024 Erythrocyte distribution width (RBC) [Ratio] 13.2 % 11.6-14.6 [facility] Erythrocyte distribution wid th standard deviationOrdered By: Lizet Linares on 02-18-2024 Erythrocyte distribution width (RBC) [Entitic vol] 43.1 fL 35.1-43.9 [facility] Hematocrit Auto (Bld) [Volum e fraction]Ordered By: Lizet Linares on 02-18-2024 Hematocrit (Bld) [Volume fraction] 34.2 % 37-47 [facility] Immature granulocytes/100 WB C Auto (Bld)Ordered By: Lizet Linares on 02-18-2024 Immature granulocytes/100 WBC (Bld) 0.600 % 0.0-0.9 [facility] No Panel InformationOrdered By: Hollymonterey parknatasha Linares on 02-18-2024 28.6 pg 27.0-32.0 [facility] 32.2 g/dL 32-36 [facility] 337 K/mm3 150-450 [facility] 9.3 fl 6.2-12.0 [facility] 0 % 0-5 [facility] 45 mL/min >60 [facility] 55 mL/min >60 [facility] 14.8 RATIO 10-20 [facility] 26.0 mmol/L 21.0-32.0 [facility] RBC Auto (Bld) [#/Vol]Ordere d By: Lizet Linares on 02-18-2024 RBC (Bld) [#/Vol] 3.84 10*6/uL 4.2-5.4 [facility] Serum or plasma calcium tai urement (mass/volume)Ordered By: Lizet Linares on 02-18-2024 Calcium [Mass/Vol] 8.8 mg/dL 8.5-10.1 [facility] Serum or plasma creatinine m easurement (mass/volume)Ordered By: Lizet Linares on 02-18-2024 Creatinine [Mass/Vol] 1.28 mg/dL 0.55-1.02 [facility] Serum or plasma urea nitroge n measurement (mass/volume)Ordered By: Lizet Linares on 02-18-2024 Urea nitrogen [Mass/Vol] 19 mg/dL 7-18 [facility] Thin prep Papanicolaou smear with manual screeningOrdered By: Lizet Linares on 02-18-2024 Thin prep Papanicolaou smear with manual screening 6 5-15 [facility] Absolute lymphocyte countOrd ered By: Lizet Linares on 02-11-2024 Lymphocytes Auto (Unsp spec) [#/Vol] 2.53 10*3/uL 0.83-4.51 [facility] Automated lymphocyte count a s percentage of total leukocytesOrdered By: Lizet Linares on 02-11-2024 Lymphocytes/100 WBC Auto (Unsp spec) 35.3 % 19-41 [facility] Basophil percentageOrdered B y: Lizet Linares on 02-11-2024 Basophil percentage 11.3 g/dL 12.0-15.0 [facility] Basophil percentage 218 mg/dL 74-106 [facility] Basophil percentage 136 mmol/L 136-145 [facility] Basophil percentage 3.9 mmol/L 3.5-5.1 [facility] Basophil percentage 103 mmol/L 98-107 [facility] Basophils (Bld) [#/Vol] 7.2 10*3/uL 4.4-11.0 [facility] Basophils (Bld) [#/Vol] 3.9 10*3/uL 2.0-7.7 [facility] Basophils/100 WBC (Bld) 54.8 % 47-70 [facility] Basophils/100 WBC (Bld) 7.3 % 0-10 [facility] Basophils/100 WBC (Bld) 1.1 % 0-5 [facility] Basophils/100 WBC (Bld) 0.7 % 0-1 [facility] Determination of erythrocyte mean corpuscular volume (MCV)Ordered By: Lizet Linares on 02-11-2024 MCV (RBC) [Entitic vol] 88.9 fL 81-99 [facility] Erythrocyte distribution wid th ratioOrdered By: Lizet Linares on 02-11-2024 Erythrocyte distribution width (RBC) [Ratio] 13.3 % 11.6-14.6 [facility] Erythrocyte distribution wid th standard deviationOrdered By: Hollymonterey parknatasha Linares on 02-11-2024 Erythrocyte distribution width (RBC) [Entitic vol] 43.8 fL 35.1-43.9 [facility] Hematocrit Auto (Bld) [Volum e fraction]Ordered By: Lizet Linares on 02-11-2024 Hematocrit (Bld) [Volume fraction] 35.4 % 37-47 [facility] Immature granulocytes/100 WB C Auto (Bld)Ordered By: Lizet Linares on 02-11-2024 Immature granulocytes/100 WBC (Bld) 0.800 % 0.0-0.9 [facility] No Panel InformationOrdered By: Hollymonterey parknatasha Linares on 02-11-2024 28.4 pg 27.0-32.0 [facility] 31.9 g/dL 32-36 [facility] 430 K/mm3 150-450 [facility] 9.2 fl 6.2-12.0 [facility] 0 % 0-5 [facility] 59 mL/min >60 [facility] 72 mL/min >60 [facility] 18.8 RATIO 10-20 [facility] 26.0 mmol/L 21.0-32.0 [facility] RBC Auto (Bld) [#/Vol]Ordere d By: Lizet Linares on 02-11-2024 RBC (Bld) [#/Vol] 3.98 10*6/uL 4.2-5.4 [facility] Serum or plasma calcium tai urement (mass/volume)Ordered By: Lizet Linares on 02-11-2024 Calcium [Mass/Vol] 8.5 mg/dL 8.5-10.1 [facility] Serum or plasma creatinine m easurement (mass/volume)Ordered By: Lizet Linares on 02-11-2024 Creatinine [Mass/Vol] 1.01 mg/dL 0.55-1.02 [facility] Serum or plasma urea nitroge n measurement (mass/volume)Ordered By: Lizet Linares on 02-11-2024 Urea nitrogen [Mass/Vol] 19 mg/dL 7-18 [facility] Thin prep Papanicolaou smear with manual screeningOrdered By: Lizet Linares on 02-11-2024 Thin prep Papanicolaou smear with manual screening 7 5-15 [facility] Bacteria identified Cx Nom ( U)Ordered By: Lizet Linares on 02-09-2024 Culture, urine Proteus mirabilis [facility] Bilirubin Test strip Ql (U)O rdered By: Lizet Linares on 02-09-2024 Bilirubin Ql (U) Negative Negative [facility] Ketones Test strip Ql (U)Ord ered By: Lizet Linares on 02-09-2024 Ketones Ql (U) Negative Negative [facility] Nitrite Test strip Ql (U)Ord ered By: Lizet Linares on 02-09-2024 Nitrite Ql (U) Positive Negative [facility] Protein Test strip Ql (U)Ord ered By: Lizet Linares on 02-09-2024 Protein Ql (U) 15 mg/dl Negative [facility] Urine blood detectionOrdered By: Lizet Linares on 02-09-2024 RBC Ql (U) 10 /ul Negative [facility] Urine clarityOrdered By: Bart Linares on 02-09-2024 Clarity (U) Clear Clear [facility] Urine color determinationOrd ered By: Lizet Linares on 02-09-2024 Color (U) Yellow Yellow [facility] Urine glucose detectionOrder ed By: Lizet Linares on 02-09-2024 Glucose Ql (U) 100 mg/dl Normal [facility] Urine leukocyte esterase det ection by dipstickOrdered By: Lizet Linares on 02-09-2024 Leukocyte esterase Test strip Ql (U) Negative Negative [facility] Urine pHOrdered By: Frank Linares on 02-09-2024 pH (U) 7.0 [pH] 5.0 - 8.0 [facility] Urine specific gravity measu rementOrdered By: Lizet Linares on 02-09-2024 Specific gravity (U) [Rel density] 1.010 1.002-1.03 0 [facility] Urine urobilinogen measureme ntOrdered By: Lizet Linares on 02-09-2024 Urobilinogen Ql (U) Normal mg/dl Normal [facility] Absolute lymphocyte countOrd ered By: Lizet Linares on 02-04-2024 Lymphocytes Auto (Unsp spec) [#/Vol] 3.24 10*3/uL 0.83-4.51 [facility] Automated lymphocyte count a s percentage of total leukocytesOrdered By: Lizet Linares on 02-04-2024 Lymphocytes/100 WBC Auto (Unsp spec) 57.7 % 19-41 [facility] Basophil percentageOrdered B y: Lizet Linares on 02-04-2024 Basophil percentage 11.8 g/dL 12.0-15.0 [facility] Basophil percentage 81 mg/dL 74-106 [facility] Basophil percentage 135 mmol/L 136-145 [facility] Basophil percentage 4.2 mmol/L 3.5-5.1 [facility] Basophil percentage 103 mmol/L 98-107 [facility] Basophils (Bld) [#/Vol] 5.6 10*3/uL 4.4-11.0 [facility] Basophils (Bld) [#/Vol] 2.0 10*3/uL 2.0-7.7 [facility] Basophils/100 WBC (Bld) 35.6 % 47-70 [facility] Basophils/100 WBC (Bld) 5.5 % 0-10 [facility] Basophils/100 WBC (Bld) 0.5 % 0-1 [facility] Blood manual differential co mment interpretation (narrative result)Ordered By: Lizet Linares on 02-04-2024 Manual differential comment Major (Bld) [Interp] SCANNED [facility] Determination of erythrocyte mean corpuscular volume (MCV)Ordered By: Lizet Linares on 02-04-2024 MCV (RBC) [Entitic vol] 89.6 fL 81-99 [facility] Erythrocyte distribution wid th ratioOrdered By: Lizet Linares on 02-04-2024 Erythrocyte distribution width (RBC) [Ratio] 13.7 % 11.6-14.6 [facility] Erythrocyte distribution wid th standard deviationOrdered By: Lizet Linares on 02-04-2024 Erythrocyte distribution width (RBC) [Entitic vol] 45.0 fL 35.1-43.9 [facility] Hematocrit Auto (Bld) [Volum e fraction]Ordered By: Lizet Linares on 02-04-2024 Hematocrit (Bld) [Volume fraction] 37.2 % 37-47 [facility] Immature granulocytes/100 WB C Auto (Bld)Ordered By: Lizet Linares on 02-04-2024 Immature granulocytes/100 WBC (Bld) 0.200 % 0.0-0.9 [facility] No Panel InformationOrdered By: Hollymonterey parknatasha Linares on 02-04-2024 28.4 pg 27.0-32.0 [facility] 31.7 g/dL 32-36 [facility] 317 K/mm3 150-450 [facility] 9.3 fl 6.2-12.0 [facility] 0 % 0-5 [facility] 1+ [facility] 53 mL/min >60 [facility] 64 mL/min >60 [facility] 15.3 RATIO 10-20 [facility] 27.0 mmol/L 21.0-32.0 [facility] RBC Auto (Bld) [#/Vol]Ordere d By: Lizet Linares on 02-04-2024 RBC (Bld) [#/Vol] 4.15 10*6/uL 4.2-5.4 [facility] Serum or plasma calcium tai urement (mass/volume)Ordered By: Lizet Linares on 02-04-2024 Calcium [Mass/Vol] 9.0 mg/dL 8.5-10.1 [facility] Serum or plasma creatinine m easurement (mass/volume)Ordered By: Lizet iLnares on 02-04-2024 Creatinine [Mass/Vol] 1.11 mg/dL 0.55-1.02 [facility] Serum or plasma urea nitroge n measurement (mass/volume)Ordered By: Lizet Linares on 02-04-2024 Urea nitrogen [Mass/Vol] 17 mg/dL 7-18 [facility] Thin prep Papanicolaou smear with manual screeningOrdered By: Lizet Linares on 02-04-2024 Thin prep Papanicolaou smear with manual screening 5 5-15 [facility] Absolute lymphocyte countOrd ered By: Lizet Linares on 02-02-2024 Lymphocytes Auto (Unsp spec) [#/Vol] 2.22 10*3/uL 0.83-4.51 [facility] Automated lymphocyte count a s percentage of total leukocytesOrdered By: Lizet Linares on 02-02-2024 Lymphocytes/100 WBC Auto (Unsp spec) 43.9 % 19-41 [facility] Basophil percentageOrdered B y: Lizet Linares on 02-02-2024 Basophil percentage 11.0 g/dL 12.0-15.0 [facility] Basophil percentage 95 mg/dL 74-106 [facility] Basophil percentage 6.3 g/dL 6.4-8.2 [facility] Basophil percentage 0.30 mg/dL 0.20-1.00 [facility] Basophil percentage 138 mmol/L 136-145 [facility] Basophil percentage 3.9 mmol/L 3.5-5.1 [facility] Basophil percentage 107 mmol/L 98-107 [facility] Basophils (Bld) [#/Vol] 5.1 10*3/uL 4.4-11.0 [facility] Basophils (Bld) [#/Vol] 2.4 10*3/uL 2.0-7.7 [facility] Basophils/100 WBC (Bld) 46.6 % 47-70 [facility] Basophils/100 WBC (Bld) 7.3 % 0-10 [facility] Basophils/100 WBC (Bld) 1.2 % 0-5 [facility] Basophils/100 WBC (Bld) 0.6 % 0-1 [facility] Determination of erythrocyte mean corpuscular volume (MCV)Ordered By: Lizet Linares on 02-02-2024 MCV (RBC) [Entitic vol] 90.0 fL 81-99 [facility] Erythrocyte distribution wid th ratioOrdered By: Lizet Linares on 02-02-2024 Erythrocyte distribution width (RBC) [Ratio] 13.8 % 11.6-14.6 [facility] Erythrocyte distribution wid th standard deviationOrdered By: Lizet Linares on 02-02-2024 Erythrocyte distribution width (RBC) [Entitic vol] 45.3 fL 35.1-43.9 [facility] Hematocrit Auto (Bld) [Volum e fraction]Ordered By: Lizet Linares on 02-02-2024 Hematocrit (Bld) [Volume fraction] 34.3 % 37-47 [facility] Immature granulocytes/100 WB C Auto (Bld)Ordered By: Lizet Linares on 02-02-2024 Immature granulocytes/100 WBC (Bld) 0.400 % 0.0-0.9 [facility] No Panel InformationOrdered By: Lizet Linares on 02-02-2024 28.9 pg 27.0-32.0 [facility] 32.1 g/dL 32-36 [facility] 279 K/mm3 150-450 [facility] 9.4 fl 6.2-12.0 [facility] 0 % 0-5 [facility] 64 mL/min >60 [facility] 78 mL/min >60 [facility] 17.0 RATIO 10-20 [facility] 3.5 g/dL 2.2-4.2 [facility] 0.8 RATIO 0.9-2.4 [facility] 44 U/L 13-56 [facility] 26.0 mmol/L 21.0-32.0 [facility] RBC Auto (Bld) [#/Vol]Ordere d By: Lizet Linares on 02-02-2024 RBC (Bld) [#/Vol] 3.81 10*6/uL 4.2-5.4 [facility] Serum or plasma calcium tai urement (mass/volume)Ordered By: Lizet Linares on 02-02-2024 Calcium [Mass/Vol] 8.7 mg/dL 8.5-10.1 [facility] Serum or plasma creatinine m easurement (mass/volume)Ordered By: Lizet Linares on 02-02-2024 Creatinine [Mass/Vol] 0.94 mg/dL 0.55-1.02 [facility] Serum or plasma urea nitroge n measurement (mass/volume)Ordered By: Lizet Linares on 02-02-2024 Urea nitrogen [Mass/Vol] 16 mg/dL 7-18 [facility] Thin prep Papanicolaou smear with manual screeningOrdered By: marcelle Linares on 02-02-2024 Thin prep Papanicolaou smear with manual screening 2.8 g/dL 3.2-5.0 [facility] Thin prep Papanicolaou smear with manual screening 42 U/L 15-37 [facility] Thin prep Papanicolaou smear with manual screening 5 5-15 [facility] Absolute lymphocyte countOrd ered By: Lizet Linares on 01-28-2024 Lymphocytes Auto (Unsp spec) [#/Vol] 2.40 10*3/uL 0.83-4.51 [facility] Automated lymphocyte count a s percentage of total leukocytesOrdered By: Lizet Linares on 01-28-2024 Lymphocytes/100 WBC Auto (Unsp spec) 43.0 % 19-41 [facility] Basophil percentageOrdered B y: Lizet Linares on 01-28-2024 Basophil percentage 11.4 g/dL 12.0-15.0 [facility] Basophil percentage 275 mg/dL 74-106 [facility] Basophil percentage 137 mmol/L 136-145 [facility] Basophil percentage 4.0 mmol/L 3.5-5.1 [facility] Basophil percentage 102 mmol/L 98-107 [facility] Basophils (Bld) [#/Vol] 5.6 10*3/uL 4.4-11.0 [facility] Basophils (Bld) [#/Vol] 2.6 10*3/uL 2.0-7.7 [facility] Basophils/100 WBC (Bld) 47.2 % 47-70 [facility] Basophils/100 WBC (Bld) 6.3 % 0-10 [facility] Basophils/100 WBC (Bld) 2.3 % 0-5 [facility] Basophils/100 WBC (Bld) 0.7 % 0-1 [facility] Determination of erythrocyte mean corpuscular volume (MCV)Ordered By: Lizet Linares on 01-28-2024 MCV (RBC) [Entitic vol] 90.2 fL 81-99 [facility] Erythrocyte distribution wid th ratioOrdered By: Lizet Linares on 01-28-2024 Erythrocyte distribution width (RBC) [Ratio] 13.7 % 11.6-14.6 [facility] Erythrocyte distribution wid th standard deviationOrdered By: Lizet Linares on 01-28-2024 Erythrocyte distribution width (RBC) [Entitic vol] 44.7 fL 35.1-43.9 [facility] Hematocrit Auto (Bld) [Volum e fraction]Ordered By: Lizet Linares on 01-28-2024 Hematocrit (Bld) [Volume fraction] 34.2 % 37-47 [facility] Immature granulocytes/100 WB C Auto (Bld)Ordered By: Lizet Linares on 01-28-2024 Immature granulocytes/100 WBC (Bld) 0.500 % 0.0-0.9 [facility] [facility] No Panel InformationOrdered By: Lizet Linares on 01-28-2024 30.1 pg 27.0-32.0 [facility] 33.3 g/dL 32-36 [facility] 298 K/mm3 150-450 [facility] 9.1 fl 6.2-12.0 [facility] 0 % 0-5 [facility] 53 mL/min >60 [facility] 64 mL/min >60 [facility] 16.1 RATIO 10-20 [facility] 28.0 mmol/L 21.0-32.0 [facility] RBC Auto (Bld) [#/Vol]Ordere d By: Lizet Linares on 01-28-2024 RBC (Bld) [#/Vol] 3.79 10*6/uL 4.2-5.4 [facility] Serum or plasma calcium tai urement (mass/volume)Ordered By: Lizet Linares on 01-28-2024 Calcium [Mass/Vol] 8.8 mg/dL 8.5-10.1 [facility] Serum or plasma creatinine m easurement (mass/volume)Ordered By: Lizet Linares on 01-28-2024 Creatinine [Mass/Vol] 1.12 mg/dL 0.55-1.02 [facility] Serum or plasma urea nitroge n measurement (mass/volume)Ordered By: Lizet Linares on 01-28-2024 Urea nitrogen [Mass/Vol] 18 mg/dL 7-18 [facility] Thin prep Papanicolaou smear with manual screeningOrdered By: Lizet Linares on 01-28-2024 Thin prep Papanicolaou smear with manual screening 7 5-15 [facility] Absolute lymphocyte countOrd ered By: Lizet Linares on 01-21-2024 Lymphocytes Auto (Unsp spec) [#/Vol] 2.61 10*3/uL 0.83-4.51 [facility] Automated lymphocyte count a s percentage of total leukocytesOrdered By: Lizet Linares on 01-21-2024 Lymphocytes/100 WBC Auto (Unsp spec) 38.7 % 19-41 [facility] Basophil percentageOrdered B y: Lizet Linares on 01-21-2024 Basophil percentage 10.7 g/dL 12.0-15.0 [facility] Basophil percentage 138 mg/dL 74-106 [facility] Basophil percentage 139 mmol/L 136-145 [facility] Basophil percentage 4.5 mmol/L 3.5-5.1 [facility] Basophil percentage 106 mmol/L 98-107 [facility] Basophils (Bld) [#/Vol] 6.8 10*3/uL 4.4-11.0 [facility] Basophils (Bld) [#/Vol] 3.6 10*3/uL 2.0-7.7 [facility] Basophils/100 WBC (Bld) 52.9 % 47-70 [facility] Basophils/100 WBC (Bld) 5.2 % 0-10 [facility] Basophils/100 WBC (Bld) 2.5 % 0-5 [facility] Basophils/100 WBC (Bld) 0.4 % 0-1 [facility] Determination of erythrocyte mean corpuscular volume (MCV)Ordered By: Lizet Linares on 01-21-2024 MCV (RBC) [Entitic vol] 91.7 fL 81-99 [facility] Erythrocyte distribution wid th ratioOrdered By: Lizet Linares on 01-21-2024 Erythrocyte distribution width (RBC) [Ratio] 13.9 % 11.6-14.6 [facility] Erythrocyte distribution wid th standard deviationOrdered By: Lizet Linares on 01-21-2024 Erythrocyte distribution width (RBC) [Entitic vol] 47.2 fL 35.1-43.9 [facility] Hematocrit Auto (Bld) [Volum e fraction]Ordered By: Lizet Linares on 01-21-2024 Hematocrit (Bld) [Volume fraction] 33.1 % 37-47 [facility] Immature granulocytes/100 WB C Auto (Bld)Ordered By: Lizet Linares on 01-21-2024 Immature granulocytes/100 WBC (Bld) 0.300 % 0.0-0.9 [facility] No Panel InformationOrdered By: Lizet Linares on 01-21-2024 29.6 pg 27.0-32.0 [facility] 32.3 g/dL 32-36 [facility] 321 K/mm3 150-450 [facility] 9.1 fl 6.2-12.0 [facility] 0 % 0-5 [facility] 50 mL/min >60 [facility] 60 mL/min >60 [facility] 12.7 RATIO 10-20 [facility] 27.0 mmol/L 21.0-32.0 [facility] RBC Auto (Bld) [#/Vol]Ordere d By: Lizet Linares on 01-21-2024 RBC (Bld) [#/Vol] 3.61 10*6/uL 4.2-5.4 [facility] Serum or plasma calcium tai urement (mass/volume)Ordered By: Lizet Linares on 01-21-2024 Calcium [Mass/Vol] 8.9 mg/dL 8.5-10.1 [facility] Serum or plasma creatinine m easurement (mass/volume)Ordered By: Juniechristajanellnatasha Crossjntal on 01-21-2024 Creatinine [Mass/Vol] 1.18 mg/dL 0.55-1.02 [facility] Serum or plasma urea nitroge n measurement (mass/volume)Ordered By: Lizet Linares on 01-21-2024 Urea nitrogen [Mass/Vol] 15 mg/dL 7-18 [facility] Thin prep Papanicolaou smear with manual screeningOrdered By: [facility] on 01-21-2024 Thin prep Papanicolaou smear with manual screening 6 5-15 [facility] Absolute lymphocyte countOrd ered By: Ellis Peterson on 01-20-2024 Lymphocytes Auto (Unsp spec) [#/Vol] 2.86 10*3/uL 0.83-4.51 [facility] Automated lymphocyte count a s percentage of total leukocytesOrdered By: Ellis Peterson on 01-20-2024 Lymphocytes/100 WBC Auto (Unsp spec) 34.1 % 19-41 [facility] Basophil percentageOrdered B y: Ellis Peterson on 01-20-2024 Basophil percentage 11.3 g/dL 12.0-15.0 [facility] Basophil percentage 83 mg/dL 74-106 [facility] Basophil percentage 139 mmol/L 136-145 [facility] Basophil percentage 4.3 mmol/L 3.5-5.1 [facility] Basophil percentage 106 mmol/L 98-107 [facility] Basophils (Bld) [#/Vol] 8.4 10*3/uL 4.4-11.0 [facility] Basophils (Bld) [#/Vol] 4.9 10*3/uL 2.0-7.7 [facility] Basophils/100 WBC (Bld) 58.1 % 47-70 [facility] Basophils/100 WBC (Bld) 5.5 % 0-10 [facility] Basophils/100 WBC (Bld) 1.4 % 0-5 [facility] Basophils/100 WBC (Bld) 0.5 % 0-1 [facility] Determination of erythrocyte mean corpuscular volume (MCV)Ordered By: Ellis Peterson on 01-20-2024 MCV (RBC) [Entitic vol] 92.2 fL 81-99 [facility] Erythrocyte distribution wid th ratioOrdered By: Ellis Peterson on 01-20-2024 Erythrocyte distribution width (RBC) [Ratio] 14.0 % 11.6-14.6 [facility] Erythrocyte distribution wid th standard deviationOrdered By: Ellis Peterson on 01-20-2024 Erythrocyte distribution width (RBC) [Entitic vol] 47.4 fL 35.1-43.9 [facility] Hematocrit Auto (Bld) [Volum e fraction]Ordered By: Ellis Peterson on 01-20-2024 Hematocrit (Bld) [Volume fraction] 35.6 % 37-47 [facility] Immature granulocytes/100 WB C Auto (Bld)Ordered By: Ellis Peterson on 01-20-2024 Immature granulocytes/100 WBC (Bld) 0.400 % 0.0-0.9 [facility] No Panel InformationOrdered By: Ellis Peterson on 01-20-2024 21 pg/mL 3.0-54.0 [facility] 29.3 pg 27.0-32.0 [facility] 31.7 g/dL 32-36 [facility] 379 K/mm3 150-450 [facility] 9.0 fl 6.2-12.0 [facility] 0 % 0-5 [facility] 66 mL/min >60 [facility] 79 mL/min >60 [facility] 62.41 ml/min [facility] 14.0 RATIO 10-20 [facility] 28.0 mmol/L 21.0-32.0 [facility] RBC Auto (Bld) [#/Vol]Ordere d By: Ellis Peterson on 01-20-2024 RBC (Bld) [#/Vol] 3.86 10*6/uL 4.2-5.4 [facility] Serum or plasma calcium tai urement (mass/volume)Ordered By: Ellis Peterson on 01-20-2024 Calcium [Mass/Vol] 9.2 mg/dL 8.5-10.1 [facility] Serum or plasma creatinine m easurement (mass/volume)Ordered By: Ellis Peterson on 01-20-2024 Creatinine [Mass/Vol] 0.93 mg/dL 0.55-1.02 [facility] Serum or plasma urea nitroge n measurement (mass/volume)Ordered By: Ellis Peterson on 01-20-2024 Urea nitrogen [Mass/Vol] 13 mg/dL 7-18 [facility] Thin prep Papanicolaou smear with manual screeningOrdered By: Ellis Peterson on 01-20-2024 Thin prep Papanicolaou smear with manual screening 5 5-15 [facility] Clostridioides difficile nuc leic acid assay by PCROrdered By: Lizet Linares on 01-19-2024 C. difficile DNA ZHANE+probe Ql (Unsp spec) [facility] Absolute lymphocyte countOrd ered By: Lizet Linares on 01-17-2024 Lymphocytes Auto (Unsp spec) [#/Vol] 2.59 10*3/uL 0.83-4.51 [facility] Automated lymphocyte count a s percentage of total leukocytesOrdered By: Lizet Linares on 01-17-2024 Lymphocytes/100 WBC Auto (Unsp spec) 36.9 % 19-41 [facility] Bacteria identified Cx Nom ( U)Ordered By: Lizet Linares on 01-17-2024 Culture, urine Serratia fonticola [facility] Basophil percentageOrdered B y: Lizet Linares on 01-17-2024 Basophil percentage 10.2 g/dL 12.0-15.0 [facility] Basophil percentage 199 mg/dL 74-106 [facility] Basophil percentage 6.0 g/dL 6.4-8.2 [facility] Basophil percentage 0.20 mg/dL 0.20-1.00 [facility] Basophil percentage 136 mmol/L 136-145 [facility] Basophil percentage 3.8 mmol/L 3.5-5.1 [facility] Basophil percentage 103 mmol/L 98-107 [facility] Basophils (Bld) [#/Vol] 7.0 10*3/uL 4.4-11.0 [facility] Basophils (Bld) [#/Vol] 3.9 10*3/uL 2.0-7.7 [facility] Basophils/100 WBC (Bld) 55.5 % 47-70 [facility] Basophils/100 WBC (Bld) 5.1 % 0-10 [facility] Basophils/100 WBC (Bld) 1.4 % 0-5 [facility] Basophils/100 WBC (Bld) 0.7 % 0-1 [facility] Basophil percentage 0 SEEN /hpf 0-5 [facility] Bilirubin Test strip Ql (U)O rdered By: Lizet Linares on 01-17-2024 Bilirubin Ql (U) Negative Negative [facility] Determination of erythrocyte mean corpuscular volume (MCV)Ordered By: Lizet Linares on 01-17-2024 MCV (RBC) [Entitic vol] 91.3 fL 81-99 [facility] Erythrocyte distribution wid th ratioOrdered By: Lizet Linares on 01-17-2024 Erythrocyte distribution width (RBC) [Ratio] 13.6 % 11.6-14.6 [facility] Erythrocyte distribution wid th standard deviationOrdered By: Lizet Linares on 01-17-2024 Erythrocyte distribution width (RBC) [Entitic vol] 45.4 fL 35.1-43.9 [facility] Hematocrit Auto (Bld) [Volum e fraction]Ordered By: Lizet Linares on 01-17-2024 Hematocrit (Bld) [Volume fraction] 32.4 % 37-47 [facility] Immature granulocytes/100 WB C Auto (Bld)Ordered By: Lizet Linares on 01-17-2024 Immature granulocytes/100 WBC (Bld) 0.400 % 0.0-0.9 [facility] Ketones Test strip Ql (U)Ord ered By: Lizet Linares on 01-17-2024 Ketones Ql (U) Negative Negative [facility] Mucus LM Ql (Urine sed)Order ed By: Lizet Linares on 01-17-2024 Mucus Ql (Urine sed) 0 SEEN /hpf [facility] Nitrite Test strip Ql (U)Ord ered By: Lizet Linares on 01-17-2024 Nitrite Ql (U) Negative Negative [facility] No Panel InformationOrdered By: Lizet Linares on 01-17-2024 28.7 pg 27.0-32.0 [facility] 31.5 g/dL 32-36 [facility] 339 K/mm3 150-450 [facility] 9.2 fl 6.2-12.0 [facility] 0 % 0-5 [facility] 59 mL/min >60 [facility] 71 mL/min >60 [facility] 15.7 RATIO 10-20 [facility] 3.3 g/dL 2.2-4.2 [facility] 0.8 RATIO 0.9-2.4 [facility] 49 U/L 45-117 [facility] 30 U/L 13-56 [facility] 27.0 mmol/L 21.0-32.0 [facility] 0 SEEN /hpf 0-5 [facility] Protein Test strip Ql (U)Ord ered By: Lizet Linares on 01-17-2024 Protein Ql (U) Negative Negative [facility] RBC Auto (Bld) [#/Vol]Ordere d By: Lizet Linares on 01-17-2024 RBC (Bld) [#/Vol] 3.55 10*6/uL 4.2-5.4 [facility] Serum or plasma calcium tai urement (mass/volume)Ordered By: Lizet Linares on 01-17-2024 Calcium [Mass/Vol] 8.0 mg/dL 8.5-10.1 [facility] Serum or plasma creatinine m easurement (mass/volume)Ordered By: Lizet Linares on 01-17-2024 Creatinine [Mass/Vol] 1.02 mg/dL 0.55-1.02 [facility] Serum or plasma urea nitroge n measurement (mass/volume)Ordered By: Lizet Linares on 01-17-2024 Urea nitrogen [Mass/Vol] 16 mg/dL 7-18 [facility] Squamous epithelial cells de tection in urine sediment by light microscopyOrdered By: Lizet Linares on 01-17-2024 Epithelial cells.squamous LM Ql (Urine sed) 0 SEEN /hpf 5-10 [facility] Thin prep Papanicolaou smear with manual screeningOrdered By: Lizet Linares on 01-17-2024 Thin prep Papanicolaou smear with manual screening 2.7 g/dL 3.2-5.0 [facility] Thin prep Papanicolaou smear with manual screening 19 U/L 15-37 [facility] Thin prep Papanicolaou smear with manual screening 6 5-15 [facility] Urine blood detectionOrdered By: Lizet Linares on 01-17-2024 RBC Ql (U) Negative Negative [facility] Urine clarityOrdered By: Bart Linares on 01-17-2024 Clarity (U) Clear Clear [facility] Urine color determinationOrd ered By: Lizet Linares on 01-17-2024 Color (U) Yellow Yellow [facility] Urine glucose detectionOrder ed By: Lizet Linares on 01-17-2024 Glucose Ql (U) 100 mg/dl Normal [facility] Urine leukocyte esterase det ection by dipstickOrdered By: Lizet Linares on 01-17-2024 Leukocyte esterase Test strip Ql (U) Negative Negative [facility] Urine pHOrdered By: Frank Linares on 01-17-2024 pH (U) 6.0 [pH] 5.0 - 8.0 [facility] Urine sediment bacteria coun t by microscopy (number/high power field)Ordered By: Lizet Linares on 01-17-2024 Bacteria LM.HPF (Urine sed) [#/Area] 0 /[HPF] None Seen [facility] Urine specific gravity measu rementOrdered By: Lizet Linares on 01-17-2024 Specific gravity (U) [Rel density] 1.015 1.002-1.03 0 [facility] Urine urobilinogen measureme ntOrdered By: Lizet Linares on 01-17-2024 Urobilinogen Ql (U) Normal mg/dl Normal [facility] Absolute lymphocyte countOrd ered By: Lizet Linares on 01-14-2024 Lymphocytes Auto (Unsp spec) [#/Vol] 2.49 10*3/uL 0.83-4.51 [facility] Automated lymphocyte count a s percentage of total leukocytesOrdered By: Juniechristajanellnatasha Crossjntal on 01-14-2024 Lymphocytes/100 WBC Auto (Unsp spec) 32.0 % 19-41 [facility] Basophil percentageOrdered B y: Hollyjanellnatasha Crossjntal on 01-14-2024 Basophil percentage 10.1 g/dL 12.0-15.0 [facility] Basophil percentage 268 mg/dL 74-106 [facility] Basophil percentage 136 mmol/L 136-145 [facility] Basophil percentage 4.3 mmol/L 3.5-5.1 [facility] Basophil percentage 104 mmol/L 98-107 [facility] Basophils (Bld) [#/Vol] 7.8 10*3/uL 4.4-11.0 [facility] Basophils (Bld) [#/Vol] 4.8 10*3/uL 2.0-7.7 [facility] Basophils/100 WBC (Bld) 61.1 % 47-70 [facility] Basophils/100 WBC (Bld) 5.1 % 0-10 [facility] Basophils/100 WBC (Bld) 1.0 % 0-5 [facility] Basophils/100 WBC (Bld) 0.4 % 0-1 [facility] Determination of erythrocyte mean corpuscular volume (MCV)Ordered By: Lizet Linares on 01-14-2024 MCV (RBC) [Entitic vol] 90.9 fL 81-99 [facility] Erythrocyte distribution wid th ratioOrdered By: christamonterey parknatasha Linares on 01-14-2024 Erythrocyte distribution width (RBC) [Ratio] 13.6 % 11.6-14.6 [facility] Erythrocyte distribution wid th standard deviationOrdered By: Juniechristamonterey parknatasha Linares on 01-14-2024 Erythrocyte distribution width (RBC) [Entitic vol] 45.1 fL 35.1-43.9 [facility] Hematocrit Auto (Bld) [Volum e fraction]Ordered By: Lizet Linares on 01-14-2024 Hematocrit (Bld) [Volume fraction] 31.8 % 37-47 [facility] Immature granulocytes/100 WB C Auto (Bld)Ordered By: Lizet Linares on 01-14-2024 Immature granulocytes/100 WBC (Bld) 0.400 % 0.0-0.9 [facility] No Panel InformationOrdered By: Lizet Linares on 01-14-2024 28.9 pg 27.0-32.0 [facility] 31.8 g/dL 32-36 [facility] 355 K/mm3 150-450 [facility] 9.2 fl 6.2-12.0 [facility] 0 % 0-5 [facility] 55 mL/min >60 [facility] 66 mL/min >60 [facility] 14.8 RATIO 10-20 [facility] 27.0 mmol/L 21.0-32.0 [facility] RBC Auto (Bld) [#/Vol]Ordere d By: Lizet Linares on 01-14-2024 RBC (Bld) [#/Vol] 3.50 10*6/uL 4.2-5.4 [facility] Serum or plasma calcium tai urement (mass/volume)Ordered By: Lizet Linares on 01-14-2024 Calcium [Mass/Vol] 8.5 mg/dL 8.5-10.1 [facility] Serum or plasma creatinine m easurement (mass/volume)Ordered By: Lizet Linares on 01-14-2024 Creatinine [Mass/Vol] 1.08 mg/dL 0.55-1.02 [facility] Serum or plasma urea nitroge n measurement (mass/volume)Ordered By: Lizet Linares on 01-14-2024 Urea nitrogen [Mass/Vol] 16 mg/dL 7-18 [facility] Thin prep Papanicolaou smear with manual screeningOrdered By: Lizet Linares on 01-14-2024 Thin prep Papanicolaou smear with manual screening 5 5-15 [facility] Absolute lymphocyte countOrd ered By: Lizet Linares on 01-12-2024 Lymphocytes Auto (Unsp spec) [#/Vol] 2.91 10*3/uL 0.83-4.51 [facility] Automated lymphocyte count a s percentage of total leukocytesOrdered By: Lizet Linares on 01-12-2024 Lymphocytes/100 WBC Auto (Unsp spec) 31.8 % 19-41 [facility] Basophil percentageOrdered B y: Lizet Linares on 01-12-2024 Basophil percentage 11.1 g/dL 12.0-15.0 [facility] Basophil percentage 215 mg/dL 74-106 [facility] Basophil percentage 136 mmol/L 136-145 [facility] Basophil percentage 4.2 mmol/L 3.5-5.1 [facility] Basophil percentage 103 mmol/L 98-107 [facility] Basophils (Bld) [#/Vol] 9.2 10*3/uL 4.4-11.0 [facility] Basophils (Bld) [#/Vol] 5.7 10*3/uL 2.0-7.7 [facility] Basophils/100 WBC (Bld) 61.9 % 47-70 [facility] Basophils/100 WBC (Bld) 4.6 % 0-10 [facility] Basophils/100 WBC (Bld) 0.8 % 0-5 [facility] Basophils/100 WBC (Bld) 0.4 % 0-1 [facility] Determination of erythrocyte mean corpuscular volume (MCV)Ordered By: Juniemarcelle Crossjntal on 01-12-2024 MCV (RBC) [Entitic vol] 90.4 fL 81-99 [facility] Erythrocyte distribution wid th ratioOrdered By: [facility] Taytal on 01-12-2024 Erythrocyte distribution width (RBC) [Ratio] 13.5 % 11.6-14.6 [facility] Erythrocyte distribution wid th standard deviationOrdered By: [facility] Taytal on 01-12-2024 Erythrocyte distribution width (RBC) [Entitic vol] 44.3 fL 35.1-43.9 [facility] Hematocrit Auto (Bld) [Volum e fraction]Ordered By: Juniemarcelle Crossjntal on 01-12-2024 Hematocrit (Bld) [Volume fraction] 34.7 % 37-47 [facility] Immature granulocytes/100 WB C Auto (Bld)Ordered By: Lizet Linares on 01-12-2024 Immature granulocytes/100 WBC (Bld) 0.500 % 0.0-0.9 [facility] No Panel InformationOrdered By: Lizet Linares on 01-12-2024 28.9 pg 27.0-32.0 [facility] 32.0 g/dL 32-36 [facility] 439 K/mm3 150-450 [facility] 9.5 fl 6.2-12.0 [facility] 0 % 0-5 [facility] 59 mL/min >60 [facility] 72 mL/min >60 [facility] 21.8 RATIO 10-20 [facility] 26.0 mmol/L 21.0-32.0 [facility] RBC Auto (Bld) [#/Vol]Ordere d By: Lizet Linaers on 01-12-2024 RBC (Bld) [#/Vol] 3.84 10*6/uL 4.2-5.4 [facility] Serum or plasma calcium tai urement (mass/volume)Ordered By: Lizet Linares on 01-12-2024 Calcium [Mass/Vol] 8.7 mg/dL 8.5-10.1 [facility] Serum or plasma creatinine m easurement (mass/volume)Ordered By: Lizet Linares on 01-12-2024 Creatinine [Mass/Vol] 1.01 mg/dL 0.55-1.02 [facility] Serum or plasma urea nitroge n measurement (mass/volume)Ordered By: Lizet Linares on 01-12-2024 Urea nitrogen [Mass/Vol] 22 mg/dL 05-11 [facility] Thin prep Papanicolaou smear with manual screeningOrdered By: Lizet Linares on 01-12-2024 Thin prep Papanicolaou smear with manual screening 7 03-08 [facility] Absolute lymphocyte countOrd ered By: Lizet Linares on 01-07-2024 Lymphocytes Auto (Unsp spec) [#/Vol] 2.39 10*3/uL 0.83-4.51 [facility] Automated lymphocyte count a s percentage of total leukocytesOrdered By: Lizet Linares on 01-07-2024 Lymphocytes/100 WBC Auto (Unsp spec) 33.3 % 19-41 [facility] Basophil percentageOrdered B y: Lizet Linares on 01-07-2024 Basophil percentage 10.5 g/dL 12.0-15.0 [facility] Basophil percentage 350 mg/dL 74-106 [facility] Basophil percentage 137 mmol/L 136-145 [facility] Basophil percentage 3.8 mmol/L 3.5-5.1 [facility] Basophil percentage 103 mmol/L 98-107 [facility] Basophils (Bld) [#/Vol] 7.2 10*3/uL 4.4-11.0 [facility] Basophils (Bld) [#/Vol] 4.3 10*3/uL 2.0-7.7 [facility] Basophils/100 WBC (Bld) 59.4 % 47-70 [facility] Basophils/100 WBC (Bld) 5.6 % 0-10 [facility] Basophils/100 WBC (Bld) 0.8 % 0-5 [facility] Basophils/100 WBC (Bld) 0.3 % 0-1 [facility] Determination of erythrocyte mean corpuscular volume (MCV)Ordered By: Lizet Linares on 01-07-2024 MCV (RBC) [Entitic vol] 90.6 fL 81-99 [facility] Erythrocyte distribution wid th ratioOrdered By: Lizet Linares on 01-07-2024 Erythrocyte distribution width (RBC) [Ratio] 13.6 % 11.6-14.6 [facility] Erythrocyte distribution wid th standard deviationOrdered By: Lizet Linares on 01-07-2024 Erythrocyte distribution width (RBC) [Entitic vol] 44.8 fL 35.1-43.9 [facility] Hematocrit Auto (Bld) [Volum e fraction]Ordered By: Lizet Linares on 01-07-2024 Hematocrit (Bld) [Volume fraction] 31.8 % 37-47 [facility] Immature granulocytes/100 WB C Auto (Bld)Ordered By: Lizet Linares on 01-07-2024 Immature granulocytes/100 WBC (Bld) 0.600 % 0.0-0.9 [facility] No Panel InformationOrdered By: Lizet Linares on 01-07-2024 29.9 pg 27.0-32.0 [facility] 33.0 g/dL 32-36 [facility] 310 K/mm3 150-450 [facility] 9.3 fl 6.2-12.0 [facility] 0 % 0-5 [facility] 59 mL/min >60 [facility] 71 mL/min >60 [facility] 22.5 RATIO 10-20 [facility] 27.0 mmol/L 21.0-32.0 [facility] RBC Auto (Bld) [#/Vol]Ordere d By: Lizet Linares on 01-07-2024 RBC (Bld) [#/Vol] 3.51 10*6/uL 4.2-5.4 [facility] Serum or plasma calcium tai urement (mass/volume)Ordered By: Lizet Linares on 01-07-2024 Calcium [Mass/Vol] 8.3 mg/dL 8.5-10.1 [facility] Serum or plasma creatinine m easurement (mass/volume)Ordered By: Lizet Linares on 01-07-2024 Creatinine [Mass/Vol] 1.02 mg/dL 0.55-1.02 [facility] Serum or plasma urea nitroge n measurement (mass/volume)Ordered By: Lizet Linares on 01-07-2024 Urea nitrogen [Mass/Vol] 23 mg/dL 7-18 [facility] Thin prep Papanicolaou smear with manual screeningOrdered By: Lizet Linares on 01-07-2024 Thin prep Papanicolaou smear with manual screening 7 03-08 [facility] Basophil percentageOrdered B y: Ana Rivera on 01-05-2024 Basophil percentage 10.6 g/dL 12.0-15.0 [facility] Basophil percentage 237 mg/dL 74-106 [facility] Basophil percentage 136 mmol/L 136-145 [facility] Basophil percentage 3.9 mmol/L 3.5-5.1 [facility] Basophil percentage 101 mmol/L 98-107 [facility] Basophils (Bld) [#/Vol] 10.0 10*3/uL 4.4-11.0 [facility] COVID-19 virus antigen assay Ordered By: Ana Rivera on 01-05-2024 SARS-CoV-2 (COVID-19) Ag IA.rapid Ql (Resp) [facility] Determination of erythrocyte mean corpuscular volume (MCV)Ordered By: Ana Rivera on 01-05-2024 MCV (RBC) [Entitic vol] 91.6 fL 81-99 [facility] Erythrocyte distribution wid th ratioOrdered By: nAa Rivera on 01-05-2024 Erythrocyte distribution width (RBC) [Ratio] 13.4 % 11.6-14.6 [facility] Erythrocyte distribution wid th standard deviationOrdered By: Ana Rivera on 01-05-2024 Erythrocyte distribution width (RBC) [Entitic vol] 45.5 fL 35.1-43.9 [facility] Hematocrit Auto (Bld) [Volum e fraction]Ordered By: Ana Rivera on 01-05-2024 Hematocrit (Bld) [Volume fraction] 32.7 % 37-47 [facility] No Panel InformationOrdered By: Ana Rivera on 01-05-2024 29.7 pg 27.0-32.0 [facility] 32.4 g/dL 32-36 [facility] 297 K/mm3 150-450 [facility] 9.3 fl 6.2-12.0 [facility] 60 mL/min >60 [facility] 73 mL/min >60 [facility] 54.57 ml/min [facility] 33.0 RATIO 10-20 [facility] 28.0 mmol/L 21.0-32.0 [facility] RBC Auto (Bld) [#/Vol]Ordere d By: Ana Rivera on 01-05-2024 RBC (Bld) [#/Vol] 3.57 10*6/uL 4.2-5.4 [facility] Serum or plasma calcium tai urement (mass/volume)Ordered By: Ana Rivera on 01-05-2024 Calcium [Mass/Vol] 8.6 mg/dL 8.5-10.1 [facility] Serum or plasma creatinine m easurement (mass/volume)Ordered By: Ana Rivera on 01-05-2024 Creatinine [Mass/Vol] 1.00 mg/dL 0.55-1.02 [facility] Serum or plasma urea nitroge n measurement (mass/volume)Ordered By: Ana Rivera on 01-05-2024 Urea nitrogen [Mass/Vol] 33 mg/dL 7-18 [facility] Thin prep Papanicolaou smear with manual screeningOrdered By: Ana Rivera on 01-05-2024 Thin prep Papanicolaou smear with manual screening 138 mg/dL 74-106 [facility] Thin prep Papanicolaou smear with manual screening 7 5-15 [facility] Absolute lymphocyte countOrd ered By: Ana Rivera on 01-04-2024 Lymphocytes Auto (Unsp spec) [#/Vol] 2.79 10*3/uL 0.83-4.51 [facility] Automated lymphocyte count a s percentage of total leukocytesOrdered By: Ana Rivera on 01-04-2024 Lymphocytes/100 WBC Auto (Unsp spec) 31.0 % 19-41 [facility] Basophil percentageOrdered B y: Ana Rivera on 01-04-2024 Basophils (Bld) [#/Vol] 5.5 10*3/uL 2.0-7.7 [facility] Basophils/100 WBC (Bld) 60.6 % 47-70 [facility] Basophils/100 WBC (Bld) 5.1 % 0-10 [facility] Basophils/100 WBC (Bld) 1.3 % 0-5 [facility] Basophils/100 WBC (Bld) 0.4 % 0-1 [facility] Immature granulocytes/100 WB C Auto (Bld)Ordered By: Ana Rivera on 01-04-2024 Immature granulocytes/100 WBC (Bld) 1.600 % 0.0-0.9 [facility] No Panel InformationOrdered By: Ana Rivera on 01-04-2024 0 % 0-5 [facility] Basophil percentageOrdered B y: Chavez Alcala on 01-03-2024 Chloride [Moles/Vol] 103 mmol/L 98-107 [facility] Glucose [Mass/Vol] 403 mg/dL 74-106 [facility] Comment on above: Glucose result great er than or equal to 200 mg/dLsuggests DIABETES MELLITUS per A.D.A. criteria. Hemoglobin (Bld) [Mass/Vol] 10.3 g/dL 12.0-15.0 [facility] Potassium [Moles/Vol] 4.5 mmol/L 3.5-5.1 [facility] Sodium [Moles/Vol] 137 mmol/L 136-145 [facility] WBC (Bld) [#/Vol] 9.3 10*3/uL 4.4-11.0 [facility] Determination of erythrocyte mean corpuscular volume (MCV)Ordered By: Chavez Alcala on 01-03-2024 MCV (RBC) [Entitic vol] 90.9 fL 81-99 [facility] Erythrocyte distribution wid th ratioOrdered By: Chavez Alcala on 01-03-2024 Erythrocyte distribution width (RBC) [Ratio] 13.6 % 11.6-14.6 [facility] Erythrocyte distribution wid th standard deviationOrdered By: Chavez Alcala on 01-03-2024 Erythrocyte distribution width (RBC) [Entitic vol] 45.0 fL 35.1-43.9 [facility] Hematocrit Auto (Bld) [Volum e fraction]Ordered By: Chavez Alcala on 01-03-2024 Hematocrit (Bld) [Volume fraction] 32.1 % 37-47 [facility] Laboratory - Chemistry and C hemistry - challengeOrdered By: Chavez Alcala on 01-03-2024 CO2 [Moles/Vol] 26.0 mmol/L 21.0-32.0 [facility] Urea nitrogen/Creatinine [Mass ratio] 32.7 mg/mg 10-20 [facility] Laboratory - Hematology and Cell countsOrdered By: Chavez Alcala on 01-03-2024 MCH (RBC) [Entitic mass] 29.2 pg 27.0-32.0 [facility] MCHC (RBC) [Mass/Vol] 32.1 g/dL 32-36 [facility] Platelet mean volume (Bld) [Entitic vol] 9.4 fL 6.2-12.0 [facility] Platelets (Bld) [#/Vol] 291 10*3/uL 150-450 [facility] No Panel InformationOrdered By: Chavez Alcala on 01-03-2024 Estimated Creatinine Clearance Calc 48.23 ml/min [facility] Estimated GFR (MDRD) Amer 63 mL/min >60 [facility] Comment on above: GFR Calc Estimated GFR (MDRD) Non-Af Amer 52 mL/min >60 [facility] Comment on above: Non- GFR Calc RBC Auto (Bld) [#/Vol]Ordere d By: Chavez Alcala on 01-03-2024 RBC (Bld) [#/Vol] 3.53 10*6/uL 4.2-5.4 [facility] Serum or plasma calcium tai urement (mass/volume)Ordered By: Chavez Alcala on 01-03-2024 Calcium [Mass/Vol] 8.5 mg/dL 8.5-10.1 [facility] Serum or plasma creatinine m easurement (mass/volume)Ordered By: Chavez Alcala on 01-03-2024 Creatinine [Mass/Vol] 1.13 mg/dL 0.55-1.02 [facility] Comment on above: The validity of the calculated GFR & GFRAA in patients over 70 years has not been determined. Clinical correlation is essential. Serum or plasma urea nitroge n measurement (mass/volume)Ordered By: Chavez Alcala on 01-03-2024 Urea nitrogen [Mass/Vol] 37 mg/dL 7-18 [facility] Thin prep Papanicolaou smear with manual screeningOrdered By: Ana Rivera on 01-03-2024 Thin prep Papanicolaou smear with manual screening 333 mg/dL 74-106 [facility] Comment on above: MANAGEMENT OF PATIEN T CARE PER NURSING PROTOCOL Thin prep Papanicolaou smear with manual screeningOrdered By: Chavez Alcala on 01-03-2024 Thin prep Papanicolaou smear with manual screening 8 5-15 [facility] Absolute lymphocyte countOrd ered By: Hansa Cast on 01-02-2024 Lymphocytes Auto (Unsp spec) [#/Vol] 2.24 10*3/uL 0.83-4.51 [facility] Automated lymphocyte count a s percentage of total leukocytesOrdered By: Hansa Cast on 01-02-2024 Lymphocytes/100 WBC Auto (Unsp spec) 31.4 % 19-41 [facility] Basophil percentageOrdered B y: Serene on 01-02-2024 Basophil percentage 6.9 g/dL 6.4-8.2 [facility] Basophil percentage 0.30 mg/dL 0.20-1.00 [facility] Basophils/100 WBC (Bld) 0.4 % 0-1 [facility] Bilirubin [Mass/Vol] 0.30 mg/dL 0.20-1.00 [facility] Comment on above: For patients on eltr ombopag therapy, use of Dimension [place] TBIL is not recommended. Eosinophils/100 WBC (Bld) 1.1 % 0-5 [facility] Monocytes/100 WBC (Bld) 5.2 % 0-10 [facility] Neutrophils (Bld) [#/Vol] 4.3 10*3/uL 2.0-7.7 [facility] Neutrophils/100 WBC (Bld) 60.2 % 47-70 [facility] Protein [Mass/Vol] 6.9 g/dL 6.4-8.2 [facility] Immature granulocytes/100 WB C Auto (Bld)Ordered By: Hansa Serene on 01-02-2024 Immature granulocytes/100 WBC (Bld) 1.700 % 0.0-0.9 [facility] Comment on above: IG% - Immature Granu locytes (promyelocytes, myelocytes and metamyelocytes) > 1% indicates that a LEFT SHIFT is Present. Laboratory - Chemistry and C hemistry - challengeOrdered By: Hansa Serene on 01-02-2024 Albumin/Globulin [Mass ratio] 0.8 {ratio} 0.9-2.4 [facility] ALP [Catalytic activity/Vol] 56 U/L 45-117 [facility] ALT [Catalytic activity/Vol] 27 U/L 13-56 [facility] Globulin (S) [Mass/Vol] 3.9 g/dL 2.2-4.2 [facility] Laboratory - Hematology and Cell countsOrdered By: Hansa Serene on 01-02-2024 Nucleated RBC/100 WBC (Bld) [Ratio] 0 % 0-5 [facility] No Panel InformationOrdered By: Hansa Serene on 01-02-2024 3.9 g/dL 2.2-4.2 [facility] 0.8 RATIO 0.9-2.4 [facility] 56 U/L 45-117 [facility] 27 U/L 13-56 [facility] Serum or plasma thyroid stim ulating hormone (TSH) measurement (units/volume)Ordered By: [facility] Serene on 01-02-2024 TSH Qn 0.36 uIU/mL 0.358-3.74 [facility] Thin prep Papanicolaou smear with manual screeningOrdered By: [facility] Serene on 01-02-2024 Thin prep Papanicolaou smear with manual screening 3.0 g/dL 3.2-5.0 [facility] Thin prep Papanicolaou smear with manual screening 34 U/L 15-37 [facility] Thin prep Papanicolaou smear with manual screening 1.82 ng/dL 0.76-1.46 [facility] Absolute lymphocyte countOrd ered By: Raisa Mc on 01-01-2024 Lymphocytes Auto (Unsp spec) [#/Vol] 2.66 10*3/uL 0.83-4.51 [facility] Automated lymphocyte count a s percentage of total leukocytesOrdered By: Raisa Mc on 01-01-2024 Lymphocytes/100 WBC Auto (Unsp spec) 26.5 % 19-41 [facility] Basophil percentageOrdered B y: Raisa Mc on 01-01-2024 Basophils/100 WBC (Bld) 0.4 % 0-1 [facility] Chloride [Moles/Vol] 102 mmol/L 98-107 [facility] Eosinophils/100 WBC (Bld) 0.8 % 0-5 [facility] Glucose [Mass/Vol] 405 mg/dL 74-106 [facility] Comment on above: Glucose result great er than or equal to 200 mg/dLsuggests DIABETES MELLITUS per A.D.A. criteria. Hemoglobin (Bld) [Mass/Vol] 11.2 g/dL 12.0-15.0 [facility] Monocytes/100 WBC (Bld) 4.7 % 0-10 [facility] Neutrophils (Bld) [#/Vol] 6.7 10*3/uL 2.0-7.7 [facility] Neutrophils/100 WBC (Bld) 66.7 % 47-70 [facility] Potassium [Moles/Vol] 4.7 mmol/L 3.5-5.1 [facility] Sodium [Moles/Vol] 134 mmol/L 136-145 [facility] WBC (Bld) [#/Vol] 10.0 10*3/uL 4.4-11.0 [facility] Determination of erythrocyte mean corpuscular volume (MCV)Ordered By: Raisa Mc on 01-01-2024 MCV (RBC) [Entitic vol] 89.5 fL 81-99 [facility] Erythrocyte distribution wid th ratioOrdered By: Raisa Mc on 01-01-2024 Erythrocyte distribution width (RBC) [Ratio] 13.3 % 11.6-14.6 [facility] Erythrocyte distribution wid th standard deviationOrdered By: Raisa Mc on 01-01-2024 Erythrocyte distribution width (RBC) [Entitic vol] 43.3 fL 35.1-43.9 [facility] Hematocrit Auto (Bld) [Volum e fraction]Ordered By: Raisa Mc on 01-01-2024 Hematocrit (Bld) [Volume fraction] 35.0 % 37-47 [facility] Immature granulocytes/100 WB C Auto (Bld)Ordered By: Raisa Mc on 01-01-2024 Immature granulocytes/100 WBC (Bld) 0.900 % 0.0-0.9 [facility] Comment on above: IG% - Immature Granu locytes (promyelocytes, myelocytes and metamyelocytes) > 1% indicates that a LEFT SHIFT is Present. Laboratory - Chemistry and C hemistry - challengeOrdered By: Raisa Mc on 01-01-2024 CO2 [Moles/Vol] 27.0 mmol/L 21.0-32.0 [facility] Urea nitrogen/Creatinine [Mass ratio] 20.3 mg/mg 10-20 [facility] Laboratory - Hematology and Cell countsOrdered By: Raisa Mc on 01-01-2024 MCH (RBC) [Entitic mass] 28.6 pg 27.0-32.0 [facility] MCHC (RBC) [Mass/Vol] 32.0 g/dL 32-36 [facility] Nucleated RBC/100 WBC (Bld) [Ratio] 0 % 0-5 [facility] Platelet mean volume (Bld) [Entitic vol] 9.4 fL 6.2-12.0 [facility] Platelets (Bld) [#/Vol] 309 10*3/uL 150-450 [facility] No Panel InformationOrdered By: Raisa Mc on 01-01-2024 Troponin I High Sensitivity 17 pg/mL 3.0-54.0 [facility] Comment on above: Please Note: New Carolann t Units and Gender Specific Reference Ranges. For more information see Policy Stat Procedure [place] High Sensitivity Troponin (TNIH) and attachments. 17 pg/mL 3.0-54.0 [facility] D-Dimer Quantitative (PE/DVT) 1.83 FEU/ug/m 0.27-0.49 [facility] Comment on above: D-Dimer ELEVATED (>0 .49): Additional studies and clinicalassessments are indicated to conclude diagnosis of:Deep Vein Thrombosis (DVT) or Pulmonary Embolism (PE)CRITICAL VALUE VERIFIED. CALLED TO [place]AR[place] [id number] Maurice Cast.RESULTS READ BACK BY SAME . Estimated Creatinine Clearance Calc 39.76 ml/min [facility] Estimated GFR (MDRD) Amer 50 mL/min >60 [facility] Comment on above: GFR Calc Estimated GFR (MDRD) Non-Af Amer 41 mL/min >60 [facility] Comment on above: Non- GFR Calc 1.83 FEU/ug/m 0.27-0.49 [facility] RBC Auto (Bld) [#/Vol]Ordere d By: Raisa Mc on 01-01-2024 RBC (Bld) [#/Vol] 3.91 10*6/uL 4.2-5.4 [facility] Serum or plasma calcium tai urement (mass/volume)Ordered By: Raisa Mc on 01-01-2024 Calcium [Mass/Vol] 9.1 mg/dL 8.5-10.1 [facility] Serum or plasma creatinine m easurement (mass/volume)Ordered By: Raisa Mc on 01-01-2024 Creatinine [Mass/Vol] 1.38 mg/dL 0.55-1.02 [facility] Comment on above: The validity of the calculated GFR & GFRAA in patients over 70 years has not been determined. Clinical correlation is essential. Serum or plasma urea nitroge n measurement (mass/volume)Ordered By: Raisa Mc on 01-01-2024 Urea nitrogen [Mass/Vol] 28 mg/dL 7-18 [facility] Thin prep Papanicolaou smear with manual screeningOrdered By: Raisa Mc on 01-01-2024 Thin prep Papanicolaou smear with manual screening 5 5-15 [facility] Absolute lymphocyte countOrd ered By: Lizet Linares on 12-31-2023 Lymphocytes Auto (Unsp spec) [#/Vol] 1.71 10*3/uL 0.83-4.51 [facility] Automated lymphocyte count a s percentage of total leukocytesOrdered By: Lizet Linares on 12-31-2023 Lymphocytes/100 WBC Auto (Unsp spec) 21.9 % 19-41 [facility] Basophil percentageOrdered B y: Lizet Linares on 12-31-2023 Basophil percentage 11.2 g/dL 12.0-15.0 [facility] Basophil percentage 480 mg/dL 74-106 [facility] Basophil percentage 134 mmol/L 136-145 [facility] Basophil percentage 4.9 mmol/L 3.5-5.1 [facility] Basophil percentage 101 mmol/L 98-107 [facility] Basophils (Bld) [#/Vol] 7.8 10*3/uL 4.4-11.0 [facility] Basophils (Bld) [#/Vol] 5.7 10*3/uL 2.0-7.7 [facility] Basophils/100 WBC (Bld) 0.4 % 0-1 [facility] Basophils/100 WBC (Bld) 73.1 % 47-70 [facility] Basophils/100 WBC (Bld) 3.7 % 0-10 [facility] Basophils/100 WBC (Bld) 0.0 % 0-5 [facility] Chloride [Moles/Vol] 101 mmol/L 98-107 [facility] Eosinophils/100 WBC (Bld) 0.0 % 0-5 [facility] Glucose [Mass/Vol] 480 mg/dL 74-106 [facility] Comment on above: Critical Result(s) C alled at: 08:54:01 12/31/2023 by: Dalila Apodaca RN ([facility]). Results read back by same.Glucose result greater than or equal to 200 mg/dLsuggests DIABETES MELLITUS per A.D.A. criteria. Hemoglobin (Bld) [Mass/Vol] 11.2 g/dL 12.0-15.0 [facility] Monocytes/100 WBC (Bld) 3.7 % 0-10 [facility] Neutrophils (Bld) [#/Vol] 5.7 10*3/uL 2.0-7.7 [facility] Neutrophils/100 WBC (Bld) 73.1 % 47-70 [facility] Potassium [Moles/Vol] 4.9 mmol/L 3.5-5.1 [facility] Sodium [Moles/Vol] 134 mmol/L 136-145 [facility] WBC (Bld) [#/Vol] 7.8 10*3/uL 4.4-11.0 [facility] Determination of erythrocyte mean corpuscular volume (MCV)Ordered By: Lizet Linares on 12-31-2023 MCV (RBC) [Entitic vol] 90.5 fL 81-99 [facility] Erythrocyte distribution wid th ratioOrdered By: Lizet Crosstal on 12-31-2023 Erythrocyte distribution width (RBC) [Ratio] 13.1 % 11.6-14.6 [facility] Erythrocyte distribution wid th standard deviationOrdered By: Hollymonterey parknatasha Linares on 12-31-2023 Erythrocyte distribution width (RBC) [Entitic vol] 43.3 fL 35.1-43.9 [facility] Hematocrit Auto (Bld) [Volum e fraction]Ordered By: Lizet Linares on 12-31-2023 Hematocrit (Bld) [Volume fraction] 34.4 % 37-47 [facility] Immature granulocytes/100 WB C Auto (Bld)Ordered By: Lizet Linares on 12-31-2023 Immature granulocytes/100 WBC (Bld) 0.900 % 0.0-0.9 [facility] Comment on above: IG% - Immature Granu locytes (promyelocytes, myelocytes and metamyelocytes) > 1% indicates that a LEFT SHIFT is Present. Laboratory - Chemistry and C hemistry - challengeOrdered By: Lizet Linares on 12-31-2023 CO2 [Moles/Vol] 24.0 mmol/L 21.0-32.0 [facility] Urea nitrogen/Creatinine [Mass ratio] 19.6 mg/mg 10- [facility] Laboratory - Hematology and Cell countsOrdered By: Lizet Linares on 12-31-2023 MCH (RBC) [Entitic mass] 29.5 pg 27.0-32.0 [facility] MCHC (RBC) [Mass/Vol] 32.6 g/dL [facility] Nucleated RBC/100 WBC (Bld) [Ratio] 0 % 0-5 [facility] Platelet mean volume (Bld) [Entitic vol] 9.9 fL 6.2-12.0 [facility] Platelets (Bld) [#/Vol] 257 10*3/uL 150-450 [facility] No Panel InformationOrdered By: Lizet Linares on 12-31-2023 Estimated GFR (MDRD) Amer 50 mL/min >60 [facility] Comment on above: GFR Calc Estimated GFR (MDRD) Non-Af Amer 41 mL/min >60 [facility] Comment on above: Non- GFR Calc 29.5 pg 27.0-32.0 [facility] 32.6 g/dL 32-36 [facility] 257 K/mm3 150-450 [facility] 9.9 fl 6.2-12.0 [facility] 0 % 0-5 [facility] 41 mL/min >60 [facility] 50 mL/min >60 [facility] 19.6 RATIO 08-13 [facility] 24.0 mmol/L 21.0-32.0 [facility] RBC Auto (Bld) [#/Vol]Ordere d By: Lizet Linares on 12-31-2023 RBC (Bld) [#/Vol] 3.80 10*6/uL 4.2-5.4 [facility] Serum or plasma calcium tai urement (mass/volume)Ordered By: Lizet Linares on 12-31-2023 Calcium [Mass/Vol] 9.3 mg/dL 8.5-10.1 [facility] Serum or plasma creatinine m easurement (mass/volume)Ordered By: Lizet Linares on 12-31-2023 Creatinine [Mass/Vol] 1.38 mg/dL 0.55-1.02 [facility] Comment on above: The validity of the calculated GFR & GFRAA in patients over 70 years has not been determined. Clinical correlation is essential. Serum or plasma urea nitroge n measurement (mass/volume)Ordered By: Lizet Linares on 12-31-2023 Urea nitrogen [Mass/Vol] 27 mg/dL 7-18 [facility] Thin prep Papanicolaou smear with manual screeningOrdered By: Lizet Linares on 12-31-2023 Thin prep Papanicolaou smear with manual screening 9 5-15 [facility] Bacteria identified Cx Nom ( U)Ordered By: Lizet Linares on 12-29-2023 Culture, urine Proteus mirabilis [facility] Bilirubin Test strip Ql (U)O rdered By: Lizet Linares on 12-29-2023 Bilirubin Ql (U) Negative Negative [facility] Culture, urineOrdered By: Junie Linares on 12-29-2023 Bacteria identified Cx Nom (U) Proteus mirabilis [facility] Ketones Test strip Ql (U)Ord ered By: Liezt Linares on 12-29-2023 Ketones Ql (U) Negative Negative [facility] Nitrite Test strip Ql (U)Ord ered By: Lizet Linares on 12-29-2023 Nitrite Ql (U) Negative Negative [facility] Protein Test strip Ql (U)Ord ered By: Lizet Linares on 12-29-2023 Protein Ql (U) 30 mg/dl Negative [facility] Urine blood detectionOrdered By: Lizet Linares on 12-29-2023 RBC Ql (U) 250 /ul Negative [facility] Urine clarityOrdered By: Bart Linares on 12-29-2023 Clarity (U) Cloudy Clear [facility] Urine color determinationOrd ered By: Lizet Linares on 12-29-2023 Color (U) Yellow Yellow [facility] Urine glucose detectionOrder ed By: Lizet Linares on 12-29-2023 Glucose Ql (U) 1000 mg/dl Normal [facility] Urine leukocyte esterase det ection by dipstickOrdered By: Lizet Linares on 12-29-2023 Leukocyte esterase Test strip Ql (U) 500 /ul Negative [facility] Urine pHOrdered By: Frank Linares on 12-29-2023 pH (U) 6.5 [pH] 5.0 - 8.0 [facility] Urine specific gravity measu rementOrdered By: Lizet Linares on 12-29-2023 Specific gravity (U) [Rel density] 1.005 1.002-1.03 0 [facility] Urine urobilinogen measureme ntOrdered By: Lizet Linares on 12-29-2023 Urobilinogen Ql (U) Normal mg/dl Normal [facility] Absolute lymphocyte countOrd ered By: Lizet Linares on 12-24-2023 Lymphocytes Auto (Unsp spec) [#/Vol] 2.44 10*3/uL 0.83-4.51 [facility] Automated lymphocyte count a s percentage of total leukocytesOrdered By: Lizet Linares on 12-24-2023 Lymphocytes/100 WBC Auto (Unsp spec) 48.0 % 19-41 [facility] Basophil percentageOrdered B y: Lizet Linares on 12-24-2023 Basophil percentage 11.2 g/dL 12.0-15.0 [facility] Basophil percentage 215 mg/dL 74-106 [facility] Basophil percentage 136 mmol/L 136-145 [facility] Basophil percentage 4.1 mmol/L 3.5-5.1 [facility] Basophil percentage 105 mmol/L 98-107 [facility] Basophils (Bld) [#/Vol] 5.1 10*3/uL 4.4-11.0 [facility] Basophils (Bld) [#/Vol] 2.2 10*3/uL 2.0-7.7 [facility] Basophils/100 WBC (Bld) 0.6 % 0-1 [facility] Basophils/100 WBC (Bld) 43.3 % 47-70 [facility] Basophils/100 WBC (Bld) 6.9 % 0-10 [facility] Basophils/100 WBC (Bld) 1.0 % 0-5 [facility] Chloride [Moles/Vol] 105 mmol/L 98-107 [facility] Eosinophils/100 WBC (Bld) 1.0 % 0-5 [facility] Glucose [Mass/Vol] 215 mg/dL 74-106 [facility] Comment on above: Glucose result great er than or equal to 200 mg/dLsuggests DIABETES MELLITUS per A.D.A. criteria. Hemoglobin (Bld) [Mass/Vol] 11.2 g/dL 12.0-15.0 [facility] Monocytes/100 WBC (Bld) 6.9 % 0-10 [facility] Neutrophils (Bld) [#/Vol] 2.2 10*3/uL 2.0-7.7 [facility] Neutrophils/100 WBC (Bld) 43.3 % 47-70 [facility] Potassium [Moles/Vol] 4.1 mmol/L 3.5-5.1 [facility] Sodium [Moles/Vol] 136 mmol/L 136-145 [facility] WBC (Bld) [#/Vol] 5.1 10*3/uL 4.4-11.0 [facility] Determination of erythrocyte mean corpuscular volume (MCV)Ordered By: Lizet Linares on 12-24-2023 MCV (RBC) [Entitic vol] 91.1 fL 81-99 [facility] Erythrocyte distribution wid th ratioOrdered By: Lizet Linares on 12-24-2023 Erythrocyte distribution width (RBC) [Ratio] 13.7 % 11.6-14.6 [facility] Erythrocyte distribution wid th standard deviationOrdered By: Lizet Linares on 12-24-2023 Erythrocyte distribution width (RBC) [Entitic vol] 46.0 fL 35.1-43.9 [facility] Hematocrit Auto (Bld) [Volum e fraction]Ordered By: Lizet Linares on 12-24-2023 Hematocrit (Bld) [Volume fraction] 33.8 % 37-47 [facility] Immature granulocytes/100 WB C Auto (Bld)Or[facility]: [facility] on 12-24-2023 Immature granulocytes/100 WBC (Bld) 0.200 % 0.0-0.9 [facility] Comment on above: IG% - Immature Granu locytes (promyelocytes, myelocytes and metamyelocytes) > 1% indicates that a LEFT SHIFT is Present. Laboratory - Chemistry and C hemistry - challengeOrdered By: christamonterey parknatasha Crosstal on 12-24-2023 CO2 [Moles/Vol] 26.0 mmol/L 21.0-32.0 [facility] Urea nitrogen/Creatinine [Mass ratio] 20.2 mg/mg 10-20 [facility] Laboratory - Hematology and Cell countsOrdered By: Hollymonterey parknatasha Linares on 12-24-2023 MCH (RBC) [Entitic mass] 30.2 pg 27.0-32.0 [facility] MCHC (RBC) [Mass/Vol] 33.1 g/dL 32-36 [facility] Nucleated RBC/100 WBC (Bld) [Ratio] 0 % 0-5 [facility] Platelet mean volume (Bld) [Entitic vol] 9.5 fL 6.2-12.0 [facility] Platelets (Bld) [#/Vol] 229 10*3/uL 150-450 [facility] No Panel InformationOrdered By: Lizet Linares on 12-24-2023 Estimated GFR (MDRD) Amer 66 mL/min >60 [facility] Comment on above: GFR Calc Estimated GFR (MDRD) Non-Af Amer 54 mL/min >60 [facility] Comment on above: Non- GFR Calc 30.2 pg 27.0-32.0 [facility] 33.1 g/dL 32-36 [facility] 229 K/mm3 150-450 [facility] 9.5 fl 6.2-12.0 [facility] 0 % 0-5 [facility] 54 mL/min >60 [facility] 66 mL/min >60 [facility] 20.2 RATIO 10-20 [facility] 26.0 mmol/L 21.0-32.0 [facility] RBC Auto (Bld) [#/Vol]Ordere d By: Lizet Linares on 12-24-2023 RBC (Bld) [#/Vol] 3.71 10*6/uL 4.2-5.4 [facility] Serum or plasma calcium tai urement (mass/volume)Ordered By: Lizet Linares on 12-24-2023 Calcium [Mass/Vol] 8.7 mg/dL 8.5-10.1 [facility] Serum or plasma creatinine m easurement (mass/volume)Ordered By: Lizet Linares on 12-24-2023 Creatinine [Mass/Vol] 1.09 mg/dL 0.55-1.02 [facility] Comment on above: The validity of the calculated GFR & GFRAA in patients over 70 years has not been determined. Clinical correlation is essential. Serum or plasma urea nitroge n measurement (mass/volume)Ordered By: Lizet Linares on 12-24-2023 Urea nitrogen [Mass/Vol] 22 mg/dL 7-18 [facility] Thin prep Papanicolaou smear with manual screeningOrdered By: Lizet Linares on 12-24-2023 Thin prep Papanicolaou smear with manual screening 5 5-15 [facility] Absolute lymphocyte countOrd ered By: Lizet Linares on 12-17-2023 Lymphocytes Auto (Unsp spec) [#/Vol] 2.73 10*3/uL 0.83-4.51 [facility] Automated lymphocyte count a s percentage of total leukocytesOrdered By: Lizet Linares on 12-17-2023 Lymphocytes/100 WBC Auto (Unsp spec) 35.0 % 19-41 [facility] Basophil percentageOrdered B y: Lizet Linares on 12-17-2023 Basophil percentage 11.2 g/dL 12.0-15.[facility] percentage 295 mg/dL [facility]-106 [facility] Basophil percentage 135 mmol/L 136-145 [facility] Basophil percentage 4.1 mmol/L 3.5-5.1 [facility] Bas[facility] percentage 101 mmol/L 98-107 [facility] Basophils (Bld) [#/Vol] 7.8 10*3/uL 4.4-11.0 [facility] Basophils (Bld) [#/Vol] 4.4 10*3/uL 2.0-7.7 [facility] Basophils/100 WBC (Bld) 0.6 % 0-1 [facility] Basophils/100 WBC (Bld) 56.1 % 47-70 [facility] Basophils/100 WBC (Bld) 6.9 % 0-10 [facility] Basophils/100 WBC (Bld) 1.0 % 0-5 [facility] Chloride [Moles/Vol] 101 mmol/L 98-107 [facility] Eosinophils/100 WBC (Bld) 1.0 % 0-5 [facility] Glucose [Mass/Vol] 295 mg/dL 74-106 [facility] Comment on above: Glucose result great er than or equal to 200 mg/dLsuggests DIABETES MELLITUS per A.D.A. criteria. Hemoglobin (Bld) [Mass/Vol] 11.2 g/dL 12.0-15.0 [facility] Monocytes/100 WBC (Bld) 6.9 % 0-10 [facility] Neutrophils (Bld) [#/Vol] 4.4 10*3/uL 2.0-7.7 [facility] Neutrophils/100 WBC (Bld) 56.1 % 47-70 [facility] Potassium [Moles/Vol] 4.1 mmol/L 3.5-5.1 [facility] Sodium [Moles/Vol] 135 mmol/L 136-145 [facility] WBC (Bld) [#/Vol] 7.8 10*3/uL 4.4-11.0 [facility] Determination of erythrocyte mean corpuscular volume (MCV)Ordered By: Lizet Linares on 12-17-2023 MCV (RBC) [Entitic vol] 90.9 fL 81-99 [facility] Erythrocyte distribution wid th ratioOrdered By: Lizet Linares on 12-17-2023 Erythrocyte distribution width (RBC) [Ratio] 14.0 % 11.6-14.6 [facility] Erythrocyte distribution wid th standard deviationOrdered By: christamonterey parknatasha Linares on 12-17-2023 Erythrocyte distribution width (RBC) [Entitic vol] 46.7 fL 35.1-43.9 [facility] Hematocrit Auto (Bld) [Volum e fraction]Ordered By: [facility] on 12-17-2023 Hematocrit (Bld) [Volume fraction] 34.1 % 37-47 [facility] Immature granulocytes/100 WB C Auto (Bld)Ordered By: [facility] on 12-17-2023 Immature granulocytes/100 WBC (Bld) 0.400 % 0.0-0.9 [facility] Comment on above: IG% - Immature Granu locytes (promyelocytes, myelocytes and metamyelocytes) > 1% indicates that a LEFT SHIFT is Present. Laboratory - Chemistry and C hemistry - challengeOrdered By: Lizet Linares on 12-17-2023 CO2 [Moles/Vol] 28.0 mmol/L 21.0-32.0 [facility] Urea nitrogen/Creatinine [Mass ratio] 22.7 mg/mg 10-20 [facility] Laboratory - Hematology and Cell countsOrdered By: marcelle Linares on 12-17-2023 MCH (RBC) [Entitic mass] 29.9 pg 27.0-32.0 [facility] MCHC (RBC) [Mass/Vol] 32.8 g/dL 32-36 [facility] Nucleated RBC/100 WBC (Bld) [Ratio] 0 % 0-5 [facility] Platelet mean volume (Bld) [Entitic vol] 9.5 fL 6.2-12.0 [facility] Platelets (Bld) [#/Vol] 323 10*3/uL 150-450 [facility] No Panel InformationOrdered By: marcelle Linares on 12-17-2023 Estimated GFR (MDRD) Amer 55 mL/min >60 [facility] Comment on above: GFR Calc Estimated GFR (MDRD) Non-Af Amer 45 mL/min >60 [facility] Comment on above: Non- GFR Calc 29.9 pg 27.0-32.0 [facility] 32.8 g/dL 32-36 [facility] 323 K/mm3 150-450 [facility] 9.5 fl 6.2-12.0 [facility] 0 % 0-5 [facility] 45 mL/min >60 [facility] 55 mL/min >60 [facility] 22.7 RATIO 10-20 [facility] 28.0 mmol/L 21.0-32.0 [facility] RBC Auto (Bld) [#/Vol]Ordere d By: Lizet Linares on 12-17-2023 RBC (Bld) [#/Vol] 3.75 10*6/uL 4.2-5.4 [facility] Serum or plasma calcium tai urement (mass/volume)Ordered By: Lizet Linares on 12-17-2023 Calcium [Mass/Vol] 8.9 mg/dL 8.5-10.1 [facility] Serum or plasma creatinine m easurement (mass/volume)Ordered By: Lizet Linares on 12-17-2023 Creatinine [Mass/Vol] 1.28 mg/dL 0.55-1.02 [facility] Comment on above: The validity of the calculated GFR & GFRAA in patients over 70 years has not been determined. Clinical correlation is essential. Serum or plasma urea nitroge n measurement (mass/volume)Ordered By: Lizet Linares on 12-17-2023 Urea nitrogen [Mass/Vol] 29 mg/dL 7-18 [facility] Thin prep Papanicolaou smear with manual screeningOrdered By: Lizet Linares on 12-17-2023 Thin prep Papanicolaou smear with manual screening 6 5-15 [facility] Absolute lymphocyte countOrd ered By: Lizet Linares on 12-10-2023 Lymphocytes Auto (Unsp spec) [#/Vol] 2.72 10*3/uL 0.83-4.51 [facility] Automated lymphocyte count a s percentage of total leukocytesOrdered By: Lizet Linares on 12-10-2023 Lymphocytes/100 WBC Auto (Unsp spec) 45.2 % 19-41 [facility] Basophil percentageOrdered B y: Lizet Linares on 12-10-2023 Basophil percentage 10.1 g/dL 12.0-15.0 [facility] Basophil percentage 352 mg/dL 74-106 [facility] Basophil percentage 135 mmol/L 136-145 [facility] Basophil percentage 4.3 mmol/L 3.5-5.1 [facility] Basophil percentage 103 mmol/L 98-107 [facility] Basophils (Bld) [#/Vol] 6.0 10*3/uL 4.4-11.0 [facility] Basophils (Bld) [#/Vol] 2.8 10*3/uL 2.0-7.7 [facility] Basophils/100 WBC (Bld) 0.8 % 0-1 [facility] Basophils/100 WBC (Bld) 46.4 % 47-70 [facility] Basophils/100 WBC (Bld) 6.3 % 0-10 [facility] Basophils/100 WBC (Bld) 0.5 % 0-5 [facility] Chloride [Moles/Vol] 103 mmol/L 98-107 [facility] Eosinophils/100 WBC (Bld) 0.5 % 0-5 [facility] Glucose [Mass/Vol] 352 mg/dL 74-106 [facility] Comment on above: Glucose result great er than or equal to 200 mg/dLsuggests DIABETES MELLITUS per A.D.A. criteria. Hemoglobin (Bld) [Mass/Vol] 10.1 g/dL 12.0-15.0 [facility] Monocytes/100 WBC (Bld) 6.3 % 0-10 [facility] Neutrophils (Bld) [#/Vol] 2.8 10*3/uL 2.0-7.7 [facility] Neutrophils/100 WBC (Bld) 46.4 % 47-70 [facility] Potassium [Moles/Vol] 4.3 mmol/L 3.5-5.1 [facility] Sodium [Moles/Vol] 135 mmol/L 136-145 [facility] WBC (Bld) [#/Vol] 6.0 10*3/uL 4.4-11.0 [facility] Determination of erythrocyte mean corpuscular volume (MCV)Ordered By: Lizet Linares on 12-10-2023 MCV (RBC) [Entitic vol] 91.0 fL 81-99 [facility] Erythrocyte distribution wid th ratioOrdered By: Hollymonterey parknatasha Linares on 12-10-2023 Erythrocyte distribution width (RBC) [Ratio] 13.6 % 11.6-14.6 [facility] Erythrocyte distribution wid th standard deviationOrdered By: Lizet Linares on 12-10-2023 Erythrocyte distribution width (RBC) [Entitic vol] 45.5 fL 35.1-43.9 [facility] Hematocrit Auto (Bld) [Volum e fraction]Ordered By: Lizet Linares on 12-10-2023 Hematocrit (Bld) [Volume fraction] 31.4 % 37-47 [facility] Immature granulocytes/100 WB C Auto (Bld)Ordered By: Juniestacey Linares on 12-10-2023 Immature granulocytes/100 WBC (Bld) 0.800 % 0.0-0.9 [facility] Comment on above: IG% - Immature Granu locytes (promyelocytes, myelocytes and metamyelocytes) > 1% indicates that a LEFT SHIFT is Present. Laboratory - Chemistry and C hemistry - challengeOrdered By: Lizet Linares on 12-10-2023 CO2 [Moles/Vol] 26.0 mmol/L 21.0-32.0 [facility] Urea nitrogen/Creatinine [Mass ratio] 24.2 mg/mg 10-20 [facility] Laboratory - Hematology and Cell countsOrdered By: Lizet Linares on 12-10-2023 MCH (RBC) [Entitic mass] 29.3 pg 27.0-32.0 [facility] MCHC (RBC) [Mass/Vol] 32.2 g/dL 32-36 [facility] Nucleated RBC/100 WBC (Bld) [Ratio] 0 % 0-5 [facility] Platelet mean volume (Bld) [Entitic vol] 10.1 fL 6.2-12.0 [facility] Platelets (Bld) [#/Vol] 268 10*3/uL 150-450 [facility] No Panel InformationOrdered By: Lizet Linares on 12-10-2023 Estimated GFR (MDRD) Amer 53 mL/min >60 [facility] Comment on above: GFR Calc Estimated GFR (MDRD) Non-Af Amer 44 mL/min >60 [facility] Comment on above: Non- GFR Calc 29.3 pg 27.0-32.0 [facility] 32.2 g/dL 32-36 [facility] 268 K/mm3 150-450 [facility] 10.1 fl 6.2-12.0 [facility] 0 % 0-5 [facility] 44 mL/min >60 [facility] 53 mL/min >60 [facility] 24.2 RATIO 10-20 [facility] 26.0 mmol/L 21.0-32.0 [facility] RBC Auto (Bld) [#/Vol]Ordere d By: Lizet Linares on 12-10-2023 RBC (Bld) [#/Vol] 3.45 10*6/uL 4.2-5.4 [facility] Serum or plasma calcium tai urement (mass/volume)Ordered By: Lizet Linares on 12-10-2023 Calcium [Mass/Vol] 8.5 mg/dL 8.5-10.1 [facility] Serum or plasma creatinine m easurement (mass/volume)Ordered By: Lizet Linares on 12-10-2023 Creatinine [Mass/Vol] 1.32 mg/dL 0.55-1.02 [facility] Comment on above: The validity of the calculated GFR & GFRAA in patients over 70 years has not been determined. Clinical correlation is essential. Serum or plasma urea nitroge n measurement (mass/volume)Ordered By: Lizet Linares on 12-10-2023 Urea nitrogen [Mass/Vol] 32 mg/dL 7-18 [facility] Thin prep Papanicolaou smear with manual screeningOrdered By: Lizet Linares on 12-10-2023 Thin prep Papanicolaou smear with manual screening 6 5-15 [facility] Absolute lymphocyte countOrd ered By: Lizet Linares on 11-26-2023 Lymphocytes Auto (Unsp spec) [#/Vol] 2.84 10*3/uL 0.83-4.51 [facility] Automated lymphocyte count a s percentage of total leukocytesOrdered By: Lizet Linares on 11-26-2023 Lymphocytes/100 WBC Auto (Unsp spec) 40.7 % 19-41 [facility] Basophil percentageOrdered B y: Lizet Linares on 11-26-2023 Basophil percentage 10.8 g/dL 12.0-15.0 [facility] Basophil percentage 230 mg/dL 74-106 [facility] Basophil percentage 7.1 g/dL 6.4-8.2 [facility] Basophil percentage 0.60 mg/dL 0.20-1.00 [facility] Basophil percentage 244 mg/dL <200 [facility] Basophil percentage 353 mg/dL <199 [facility] Basophil percentage 135 mmol/L 136-145 [facility] Basophil percentage 4.2 mmol/L 3.5-5.1 [facility] Basophil percentage 102 mmol/L 98-107 [facility] Basophils (Bld) [#/Vol] 7.0 10*3/uL 4.4-11.0 [facility] Basophils (Bld) [#/Vol] 3.5 10*3/uL 2.0-7.7 [facility] Basophils/100 WBC (Bld) 1.0 % 0-1 [facility] Basophils/100 WBC (Bld) 50.3 % 47-70 [facility] Basophils/100 WBC (Bld) 5.3 % 0-10 [facility] Basophils/100 WBC (Bld) 2.0 % 0-5 [facility] Bilirubin [Mass/Vol] 0.60 mg/dL 0.20-1.00 [facility] Comment on above: For patients on eltr ombopag therapy, use of Dimension [place] TBIL is not recommended. Chloride [Moles/Vol] 102 mmol/L 98-107 [facility] Cholesterol [Mass/Vol] 244 mg/dL <200 [facility] Comment on above: <200 mg/dL Desirable 200-240 mg/dL Borderline >240 mg/dL High Risk Eosinophils/100 WBC (Bld) 2.0 % 0-5 [facility] Glucose [Mass/Vol] 230 mg/dL 74-106 [facility] Comment on above: Glucose result great er than or equal to 200 mg/dLsuggests DIABETES MELLITUS per A.D.A. criteria. Hemoglobin (Bld) [Mass/Vol] 10.8 g/dL 12.0-15.0 [facility] Monocytes/100 WBC (Bld) 5.3 % 0-10 [facility] Neutrophils (Bld) [#/Vol] 3.5 10*3/uL 2.0-7.7 [facility] Neutrophils/100 WBC (Bld) 50.3 % 47-70 [facility] Potassium [Moles/Vol] 4.2 mmol/L 3.5-5.1 [facility] Protein [Mass/Vol] 7.1 g/dL 6.4-8.2 [facility] Sodium [Moles/Vol] 135 mmol/L 136-145 [facility] Triglyceride [Mass/Vol] 353 mg/dL <199 [facility] Comment on above: The drugs N-Acetylcy steine and Metamizole may falsely depress this assay.Serum Triglycerides Reference Interval Normal <150 mg/dL Borderline high 150 - 199 mg/dL High 200 - 499 mg/dL Very High > or = 500 mg/dL WBC (Bld) [#/Vol] 7.0 10*3/uL 4.4-11.0 [facility] Determination of erythrocyte mean corpuscular volume (MCV)Ordered By: Lizet Linares on 11-26-2023 MCV (RBC) [Entitic vol] 94.2 fL 81-99 [facility] Erythrocyte distribution wid th ratioOrdered By: Lizet Linares on 11-26-2023 Erythrocyte distribution width (RBC) [Ratio] 14.4 % 11.6-14.6 [facility] Erythrocyte distribution wid th standard deviationOrdered By: Lizet Linares on 11-26-2023 Erythrocyte distribution width (RBC) [Entitic vol] 49.4 fL 35.1-43.9 [facility] Hematocrit Auto (Bld) [Volum e fraction]Ordered By: Lizet Linares on 11-26-2023 Hematocrit (Bld) [Volume fraction] 33.9 % 37-47 [facility] Immature granulocytes/100 WB C Auto (Bld)Ordered By: christamonterey parknatasha Linares on 11-26-2023 Immature granulocytes/100 WBC (Bld) 0.700 % 0.0-0.9 [facility] Comment on above: IG% - Immature Granu locytes (promyelocytes, myelocytes and metamyelocytes) > 1% indicates that a LEFT SHIFT is Present. Laboratory - Chemistry and C hemistry - challengeOrdered By: Hollymonterey parknatasha Linares on 11-26-2023 Albumin/Globulin [Mass ratio] 0.9 {ratio} 0.9-2.4 [facility] ALP [Catalytic activity/Vol] 62 U/L 45-117 [facility] ALT [Catalytic activity/Vol] 29 U/L 13-56 [facility] Cholesterol in HDL (Body fld) [Mass/Vol] 23 mg/dL >40 [facility] Comment on above: The drugs N-Acetylcy steine and Metamizole may falsely depress this assay. Reference Range HDL <40 mg/dL Low HDL Cholesterol HDL >or= 60 mg/dL High HDL Cholesterol Cholesterol in LDL (Body fld) [Moles/Vol] 150 mg/dL 0-130 [facility] Cholesterol in VLDL Calc [Moles/Vol] 71 mg/dL 5-40 [facility] CO2 [Moles/Vol] 28.0 mmol/L 21.0-32.0 [facility] Globulin (S) [Mass/Vol] 3.8 g/dL 2.2-4.2 [facility] Urea nitrogen/Creatinine [Mass ratio] 11.7 mg/mg 10-20 [facility] Laboratory - Hematology and Cell countsOrdered By: christamonterey parknatasha Linares on 11-26-2023 MCH (RBC) [Entitic mass] 30.0 pg 27.0-32.0 [facility] MCHC (RBC) [Mass/Vol] 31.9 g/dL 32-36 [facility] Nucleated RBC/100 WBC (Bld) [Ratio] 0 % 0-5 [facility] Platelets (Bld) [#/Vol] 264 10*3/uL 150-450 [facility] No Panel InformationOrdered By: Lizet Linares on 11-26-2023 Estimated GFR (MDRD) Amer 39 mL/min >60 [facility] Comment on above: GFR Calc Estimated GFR (MDRD) Non-Af Amer 32 mL/min >60 [facility] Comment on above: Non- GFR Calc 30.0 pg 27.0-32.0 [facility] 31.9 g/dL 32-36 [facility] 264 K/mm3 150-450 [facility] 0 % 0-5 [facility] 32 mL/min >60 [facility] 39 mL/min >60 [facility] 11.7 RATIO 10-20 [facility] 3.8 g/dL 2.2-4.2 [facility] 0.9 RATIO 0.9-2.4 [facility] 62 U/L 45-117 [facility] 29 U/L 13-56 [facility] 28.0 mmol/L 21.0-32.0 [facility] Platelet mean volume Fercho-Ec ker (Bld) [Entitic vol]Ordered By: Lizet Linares on 11-26-2023 Platelet mean volume (Bld) [Entitic vol] 9.9 fL 6.2-12.0 [facility] RBC Auto (Bld) [#/Vol]Ordere d By: Lizet Linares on 11-26-2023 RBC (Bld) [#/Vol] 3.60 10*6/uL 4.2-5.4 [facility] Serum or plasma calcium tai urement (mass/volume)Ordered By: Lizet Linares on 11-26-2023 Calcium [Mass/Vol] 9.1 mg/dL 8.5-10.1 [facility] Serum or plasma creatinine m easurement (mass/volume)Ordered By: Lizet Linares on 11-26-2023 Creatinine [Mass/Vol] 1.71 mg/dL 0.55-1.02 [facility] Comment on above: The validity of the calculated GFR & GFRAA in patients over 70 years has not been determined. Clinical correlation is essential. Serum or plasma thyroid stim ulating hormone (TSH) measurement (units/volume)Ordered By: Lizet Linares on 11-26-2023 TSH Qn 99.40 uIU/mL 0.358-3.74 [facility] Serum or plasma urea nitroge n measurement (mass/volume)Ordered By: Lizet Linares on 11-26-2023 Urea nitrogen [Mass/Vol] 20 mg/dL 7-18 [facility] Thin prep Papanicolaou smear with manual screeningOrdered By: Lizet Linares on 11-26-2023 Thin prep Papanicolaou smear with manual screening 3.3 g/dL 3.2-5.0 [facility] Thin prep Papanicolaou smear with manual screening 33 U/L 15-37 [facility] Thin prep Papanicolaou smear with manual screening 5 5-15 [facility] Whole blood hemoglobin A1c/t otal hemoglobin ratio (mass fraction)Ordered By: Lizet Linares on 11-26-2023 HbA1c (Bld) [Mass fraction] 13.1 % 3.8-5.6 [facility] Comment on above: Normal < 5.7 % Predi abetic 5.7 - 6.4 % Diabetic >or= 6.5 % Please note range changes. COVID-19 virus antigen assay Ordered By: Paresh Hernandez on 11-24-2023 SARS-CoV-2 (COVID-19) Ag IA.rapid Ql (Resp) [facility] Thin prep Papanicolaou smear with manual screeningOrdered By: Paresh Hernandez on 11-24-2023 Thin prep Papanicolaou smear with manual screening 128 mg/dL 74-106 [facility] Comment on above: MANAGEMENT OF PATIEN T CARE PER NURSING PROTOCOL Basophil percentageOrdered B y: Paresh Hernandez on 11-23-2023 Basophil percentage 139 mg/dL 74-106 [facility] Basophil percentage 136 mmol/L 136-145 [facility] Basophil percentage 4.4 mmol/L 3.5-5.1 [facility] Basophil percentage 106 mmol/L 98-107 [facility] Chloride [Moles/Vol] 106 mmol/L 98-107 [facility] Glucose [Mass/Vol] 139 mg/dL 74-106 [facility] Comment on above: Fasting Glucose resu lt greater than or equal to 126 mg/dL suggests DIABETES MELLITUS per A.D.A. criteria. Potassium [Moles/Vol] 4.4 mmol/L 3.5-5.1 [facility] Sodium [Moles/Vol] 136 mmol/L 136-145 [facility] Laboratory - Chemistry and C hemistry - challengeOrdered By: Paresh Hernandez on 11-23-2023 CO2 [Moles/Vol] 25.0 mmol/L 21.0-32.0 [facility] Urea nitrogen/Creatinine [Mass ratio] 8.1 mg/mg 10- [facility] No Panel InformationOrdered By: Paresh Hernandez on 11-23-2023 Estimated Creatinine Clearance Calc 33.99 ml/min [facility] Estimated GFR (MDRD) Amer 39 mL/min >60 [facility] Comment on above: GFR Calc Estimated GFR (MDRD) Non-Af Amer 32 mL/min >60 [facility] Comment on above: Non- GFR Calc 32 mL/min >60 [facility] 39 mL/min >60 [facility] 33.99 ml/min [facility] 8.1 RATIO - [facility] 25.0 mmol/L 21.0-32.0 [facility] Serum or plasma calcium tai urement (mass/volume)Ordered By: Paresh Hernandez on 11-23-2023 Calcium [Mass/Vol] 9.4 mg/dL 8.5-10.1 [facility] Serum or plasma creatinine m easurement (mass/volume)Ordered By: Paresh Hernandez on 11-23-2023 Creatinine [Mass/Vol] 1.72 mg/dL 0.55-1.02 [facility] Comment on above: The validity of the calculated GFR & GFRAA in patients over 70 years has not been determined. Clinical correlation is essential. Serum or plasma urea nitroge n measurement (mass/volume)Ordered By: Paresh Hernandez on 11-23-2023 Urea nitrogen [Mass/Vol] 14 mg/dL 7-18 [facility] Thin prep Papanicolaou smear with manual screeningOrdered By: Paresh Hernandez on 11-23-2023 Thin prep Papanicolaou smear with manual screening 5 5-15 [facility] Absolute lymphocyte countOrd ered By: John Shaw on 11-22-2023 Lymphocytes Auto (Unsp spec) [#/Vol] 2.87 10*3/uL 0.83-4.51 [facility] Automated lymphocyte count a s percentage of total leukocytesOrdered By: John Shaw on 11-22-2023 Lymphocytes/100 WBC Auto (Unsp spec) 41.6 % 19-41 [facility] Basophil percentageOrdered B y: John Shaw on 11-22-2023 Basophil percentage 11.0 g/dL 12.0-15.0 [facility] Basophils (Bld) [#/Vol] 6.9 10*3/uL 4.4-11.0 [facility] Basophils (Bld) [#/Vol] 3.6 10*3/uL 2.0-7.7 [facility] Basophils/100 WBC (Bld) 0.6 % 0-1 [facility] Basophils/100 WBC (Bld) 51.4 % 47-70 [facility] Basophils/100 WBC (Bld) 4.1 % 0-10 [facility] Basophils/100 WBC (Bld) 1.9 % 0-5 [facility] Eosinophils/100 WBC (Bld) 1.9 % 0-5 [facility] Hemoglobin (Bld) [Mass/Vol] 11.0 g/dL 12.0-15.0 [facility] Monocytes/100 WBC (Bld) 4.1 % 0-10 [facility] Neutrophils (Bld) [#/Vol] 3.6 10*3/uL 2.0-7.7 [facility] Neutrophils/100 WBC (Bld) 51.4 % 47-70 [facility] WBC (Bld) [#/Vol] 6.9 10*3/uL 4.4-11.0 [facility] Determination of erythrocyte mean corpuscular volume (MCV)Ordered By: John Shaw on 11-22-2023 MCV (RBC) [Entitic vol] 91.4 fL 81-99 [facility] Erythrocyte distribution wid th ratioOrdered By: John Shaw on 11-22-2023 Erythrocyte distribution width (RBC) [Ratio] 14.6 % 11.6-14.6 [facility] Erythrocyte distribution wid th standard deviationOrdered By: John Shaw on 11-22-2023 Erythrocyte distribution width (RBC) [Entitic vol] 48.6 fL 35.1-43.9 [facility] Hematocrit Auto (Bld) [Volum e fraction]Ordered By: John Shaw on 11-22-2023 Hematocrit (Bld) [Volume fraction] 33.8 % 37-47 [facility] Immature granulocytes/100 WB C Auto (Bld)Ordered By: John Shaw on 11-22-2023 Immature granulocytes/100 WBC (Bld) 0.400 % 0.0-0.9 [facility] Comment on above: IG% - Immature Granu locytes (promyelocytes, myelocytes and metamyelocytes) > 1% indicates that a LEFT SHIFT is Present. Laboratory - Hematology and Cell countsOrdered By: John Shaw on 11-22-2023 MCH (RBC) [Entitic mass] 29.7 pg 27.0-32.0 [facility] MCHC (RBC) [Mass/Vol] 32.5 g/dL 32-36 [facility] Nucleated RBC/100 WBC (Bld) [Ratio] 0 % 0-5 [facility] Platelets (Bld) [#/Vol] 260 10*3/uL 150-450 [facility] No Panel InformationOrdered By: John Shaw on 11-22-2023 29.7 pg 27.0-32.0 [facility] 32.5 g/dL 32-36 [facility] 260 K/mm3 150-450 [facility] 0 % 0-5 [facility] Platelet mean volume Fercho-Ec ker (Bld) [Entitic vol]Ordered By: John Shaw on 11-22-2023 Platelet mean volume (Bld) [Entitic vol] 10.2 fL 6.2-12.0 [facility] RBC Auto (Bld) [#/Vol]Ordere d By: John Shaw on 11-22-2023 RBC (Bld) [#/Vol] 3.70 10*6/uL 4.2-5.4 [facility] Bacteria identified Cx Nom ( U)Ordered By: John Shaw on 11-20-2023 Culture, urine Enterococcus faecalis [facility] Basophil percentageOrdered B y: John Shaw on 11-20-2023 Basophil percentage 2.3 mg/dL 2.5-4.9 [facility] Culture, urineOrdered By: Albert Shaw on 11-20-2023 Bacteria identified Cx Nom (U) Enterococcus faecalis [facility] Bacteria identified Cx Nom (U) Enterococcus faecalis [facility] Laboratory - Chemistry and C hemistry - challengeOrdered By: John Shaw on 11-20-2023 Magnesium [Mass/Vol] 2.1 mg/dL 1.6-2.6 [facility] No Panel InformationOrdered By: John Shaw on 11-20-2023 2.1 mg/dL 1.6-2.6 [facility] Absolute lymphocyte countOrd ered By: ED PROVIDER on 11-19-2023 Lymphocytes Auto (Unsp spec) [#/Vol] 4.21 10*3/uL 0.83-4.51 [facility] Automated lymphocyte count a s percentage of total leukocytesOrdered By: ED PROVIDER on 11-19-2023 Lymphocytes/100 WBC Auto (Unsp spec) 35.7 % 19-41 [facility] Basophil percentageOrdered B y: John Shaw on 11-19-2023 Basophil percentage 7.3 g/dL 6.4-8.2 [facility] Basophil percentage 0.50 mg/dL 0.20-1.00 [facility] Bilirubin [Mass/Vol] 0.50 mg/dL 0.20-1.00 [facility] Comment on above: For patients on eltr ombopag therapy, use of Dimension [place] TBIL is not recommended. Protein [Mass/Vol] 7.3 g/dL 6.4-8.2 [facility] Basophil percentageOrdered B y: Zack Choi on 11-19-2023 Basophil percentage 10-25 SEEN /hpf 0-5 [facility] Bilirubin [Mass/Vol] 0.60 mg/dL 0.20-1.00 [facility] Comment on above: For patients on eltr ombopag therapy, use of Dimension [place] TBIL is not recommended. Protein [Mass/Vol] 8.5 g/dL 6.4-8.2 [facility] Basophil percentageOrdered B y: ED PROVIDER on 11-19-2023 Basophils/100 WBC (Bld) 0.7 % 0-1 [facility] Chloride [Moles/Vol] 92 mmol/L 98-107 [facility] Eosinophils/100 WBC (Bld) 0.4 % 0-5 [facility] Glucose [Mass/Vol] 484 mg/dL 74-106 [facility] Comment on above: Critical Result(s) C alled at: 09:01:13 11/19/2023 by: Shonda March to Jessica Segal. Results read back by same.Glucose result greater than or equal to 200 mg/dLsuggests DIABETES MELLITUS per A.D.A. criteria. Hemoglobin (Bld) [Mass/Vol] 13.7 g/dL 12.0-15.0 [facility] Monocytes/100 WBC (Bld) 3.3 % 0-10 [facility] Neutrophils (Bld) [#/Vol] 7.0 10*3/uL 2.0-7.7 [facility] Neutrophils/100 WBC (Bld) 59.6 % 47-70 [facility] Potassium [Moles/Vol] 3.4 mmol/L 3.5-5.1 [facility] Comment on above: Slight Hemolysis, Re sult may be falsely increased. Sodium [Moles/Vol] 127 mmol/L 136-145 [facility] WBC (Bld) [#/Vol] 11.8 10*3/uL 4.4-11.0 [facility] Bilirubin Test strip Ql (U)O rdered By: Zack Choi on 11-19-2023 Bilirubin Ql (U) Negative Negative [facility] Determination of erythrocyte mean corpuscular volume (MCV)Ordered By: ED PROVIDER on 11-19-2023 MCV (RBC) [Entitic vol] 87.8 fL 81-99 [facility] Direct bilirubinOrdered By: Zack Choi on 11-19-2023 Bilirubin.direct [Mass/Vol] 0.16 mg/dL 0.00-0.30 [facility] Erythrocyte distribution wid th ratioOrdered By: ED PROVIDER on 11-19-2023 Erythrocyte distribution width (RBC) [Ratio] 13.5 % 11.6-14.6 [facility] Erythrocyte distribution wid th standard deviationOrdered By: ED PROVIDER on 11-19-2023 Erythrocyte distribution width (RBC) [Entitic vol] 43.6 fL 35.1-43.9 [facility] Hematocrit Auto (Bld) [Volum e fraction]Ordered By: ED PROVIDER on 11-19-2023 Hematocrit (Bld) [Volume fraction] 40.2 % 37-47 [facility] Immature granulocytes/100 WB C Auto (Bld)Ordered By: ED PROVIDER on 11-19-2023 Immature granulocytes/100 WBC (Bld) 0.300 % 0.0-0.9 [facility] Comment on above: IG% - Immature Granu locytes (promyelocytes, myelocytes and metamyelocytes) > 1% indicates that a LEFT SHIFT is Present. Ketones Test strip Ql (U)Ord ered By: Zack Choi on 11-19-2023 Ketones Ql (U) Negative Negative [facility] Laboratory - Chemistry and C hemistry - challengeOrdered By: John Shaw on 11-19-2023 Albumin/Globulin [Mass ratio] 0.9 {ratio} 0.9-2.4 [facility] ALP [Catalytic activity/Vol] 60 U/L [facility] ALT [Catalytic activity/Vol] 27 U/L [facility] Globulin (S) [Mass/Vol] 3.9 g/dL 2.2-4.2 [facility] Laboratory - Chemistry and C hemistry - challengeOrdered By: Zack Choi on 11-19-2023 ALP [Catalytic activity/Vol] 73 U/L [facility] ALT [Catalytic activity/Vol] 33 U/L [facility] Globulin (S) [Mass/Vol] 4.6 g/dL 2.2-4.2 [facility] Lipase [Catalytic activity/Vol] 39 U/L [facility] Comment on above: Please note:LIPASE r evised reference range effective 23. New Lipase methodology. Expected to produce lower values than the previous assay method. NEW Reference Range: 13 - 75 U/L Laboratory - Chemistry and C hemistry - challengeOrdered By: ED PROVIDER on 11-19-2023 CO2 [Moles/Vol] 24.0 mmol/L 21.0-32.0 [facility] Urea nitrogen/Creatinine [Mass ratio] 9.5 mg/mg 10-20 [facility] Laboratory - Hematology and Cell countsOrdered By: ED PROVIDER on 11-19-2023 MCH (RBC) [Entitic mass] 29.9 pg 27.0-32.0 [facility] MCHC (RBC) [Mass/Vol] 34.1 g/dL 32-36 [facility] Nucleated RBC/100 WBC (Bld) [Ratio] 0 % 0-5 [facility] Platelets (Bld) [#/Vol] 306 10*3/uL 150-450 [facility] Mucus LM Ql (Urine sed)Order ed By: Zack Choi on 11-19-2023 Mucus Ql (Urine sed) 0 SEEN /hpf [facility] Nitrite Test strip Ql (U)Ord ered By: Zack Choi on 11-19-2023 Nitrite Ql (U) Negative Negative [facility] No Panel InformationOrdered By: John Shaw on 11-19-2023 3.9 g/dL 2.2-4.2 [facility] 0.9 RATIO 0.9-2.4 [facility] 60 U/L 45-117 [facility] 27 U/L 13-56 [facility] No Panel InformationOrdered By: Zack Choi on 11-19-2023 Urine RBC 0-5 SEEN /hpf 0-5 [facility] 0-5 SEEN /hpf 0-5 [facility] 39 U/L 13-75 [facility] No Panel InformationOrdered By: ED PROVIDER on 11-19-2023 Estimated Creatinine Clearance Calc 34.64 ml/min [facility] Estimated GFR (MDRD) Amer 40 mL/min >60 [facility] Comment on above: GFR Calc Estimated GFR (MDRD) Non-Af Amer 33 mL/min >60 [facility] Comment on above: Non- GFR Calc Platelet mean volume Fercho-Ec ker (Bld) [Entitic vol]Ordered By: ED PROVIDER on 11-19-2023 Platelet mean volume (Bld) [Entitic vol] 10.9 fL 6.2-12.0 [facility] Protein Test strip Ql (U)Ord ered By: Zack Choi on 11-19-2023 Protein Ql (U) 30 mg/dl Negative [facility] RBC Auto (Bld) [#/Vol]Ordere d By: ED PROVIDER on 11-19-2023 RBC (Bld) [#/Vol] 4.58 10*6/uL 4.2-5.4 [facility] Serum or plasma acetone tai urement (mass/volume)Ordered By: ED PROVIDER on 11-19-2023 Acetone [Mass/Vol] Negative NEG [facility] Serum or plasma calcium tai urement (mass/volume)Ordered By: ED PROVIDER on 11-19-2023 Calcium [Mass/Vol] 9.6 mg/dL 8.5-10.1 [facility] Serum or plasma creatinine m easurement (mass/volume)Ordered By: ED PROVIDER on 11-19-2023 Creatinine [Mass/Vol] 1.68 mg/dL 0.55-1.02 [facility] Comment on above: The validity of the calculated GFR & GFRAA in patients over 70 years has not been determined. Clinical correlation is essential. Serum or plasma urea nitroge n measurement (mass/volume)Ordered By: ED PROVIDER on 11-19-2023 Urea nitrogen [Mass/Vol] 16 mg/dL 7-18 [facility] Squamous epithelial cells de tection in urine sediment by light microscopyOrdered By: Zack Choi on 11-19-2023 Epithelial cells.squamous LM Ql (Urine sed) 10-25 SEEN /hpf 5-10 [facility] Thin prep Papanicolaou smear with manual screeningOrdered By: John Shaw on 11-19-2023 Thin prep Papanicolaou smear with manual screening 3.4 g/dL 3.2-5.0 [facility] Thin prep Papanicolaou smear with manual screening 24 U/L 15-37 [facility] Thin prep Papanicolaou smear with manual screeningOrdered By: Zack Choi on 11-19-2023 Thin prep Papanicolaou smear with manual screening 356 mg/dL 74-106 [facility] Comment on above: MANAGEMENT OF PATIEN T CARE PER NURSING PROTOCOL Thin prep Papanicolaou smear with manual screening 3.9 g/dL 3.2-5.0 [facility] Thin prep Papanicolaou smear with manual screening 30 U/L 15-37 [facility] Comment on above: Slight Hemolysis, Re sult may be falsely increased. Thin prep Papanicolaou smear with manual screeningOrdered By: ED PROVIDER on 11-19-2023 Thin prep Papanicolaou smear with manual screening 11 5-15 [facility] Urine blood detectionOrdered By: Zack Choi on 11-19-2023 RBC Ql (U) 10 /ul Negative [facility] Urine clarityOrdered By: Garland Choi on 11-19-2023 Clarity (U) Sl. Cloudy Clear [facility] Urine color determinationOrd ered By: Zack Choi on 11-19-2023 Color (U) Yellow Yellow [facility] Urine glucose detectionOrder ed By: Zack Choi on 11-19-2023 Glucose Ql (U) 1000 mg/dl Normal [facility] Urine leukocyte esterase det ection by dipstickOrdered By: Zack Choi on 11-19-2023 Leukocyte esterase Test strip Ql (U) 100 /ul Negative [facility] Urine pHOrdered By: Zack james on 11-19-2023 pH (U) 6.0 [pH] 5.0 - 8.0 [facility] Urine sediment bacteria coun t by microscopy (number/high power field)Ordered By: Zack Choi on 11-19-2023 Bacteria LM.HPF (Urine sed) [#/Area] 0 /[HPF] None Seen [facility] Urine sediment yeast count b y microscopy (number/high powered field)Ordered By: Zack Choi on 11-19-2023 Yeast LM.HPF (Urine sed) [#/Area] 2 /[HPF] None Seen [facility] Urine specific gravity measu rementOrdered By: Zack Choi on 11-19-2023 Specific gravity (U) [Rel density] 1.015 1.002-1.03 0 [facility] Urine urobilinogen measureme ntOrdered By: Zack Choi on 11-19-2023 Urobilinogen Ql (U) Normal mg/dl Normal [facility] Absolute lymphocyte countOrd ered By: Bronson Retana on 06-06-2023 Lymphocytes Auto (Unsp spec) [#/Vol] 2.81 10*3/uL 0.83-4.51 [facility] Basophil percentageOrdered B y: Bronson Retana on 06-06-2023 Basophils/100 WBC (Bld) 0.8 % 0-1 [facility] Chloride [Moles/Vol] 94 mmol/L 98-107 [facility] Eosinophils/100 WBC (Bld) 0.9 % 0-5 [facility] Glucose [Mass/Vol] 554 mg/dL 74-106 [facility] Comment on above: Critical Result(s) C alled at: 18:31:37 06/06/2023 by: AUSTYN ESTRELLA. TO BARBARA SALAS RN ER Results read back by same.Glucose result greater than or equal to 200 mg/dLsuggests DIABETES MELLITUS per A.D.A. criteria. Neutrophils (Bld) [#/Vol] 3.2 10*3/uL 2.0-7.7 [facility] Neutrophils/100 WBC (Bld) 50.5 % 47-70 [facility] Potassium [Moles/Vol] 3.6 mmol/L 3.5-5.1 [facility] Sodium [Moles/Vol] 129 mmol/L 136-145 [facility] WBC (Bld) [#/Vol] 6.4 10*3/uL 4.4-11.0 [facility] Blood erythrocytes count (nu mber/volume)Ordered By: Bronson Retana on 06-06-2023 RBC (Bld) [#/Vol] 4.77 10*6/uL 4.2-5.4 [facility] Blood hemoglobin measurement (mass/volume)Ordered By: Bronson Retana on 06-06-2023 Hemoglobin (Bld) [Mass/Vol] 13.7 g/dL 12.0-15.0 [facility] Blood lymphocytes/100 leukoc ytesOrdered By: Bronson Retana on 06-06-2023 Lymphocytes/100 WBC (Bld) 44.0 % 19-41 [facility] Blood monocytes/100 leukocyt esOrdered By: Bronson Retana on 06-06-2023 Monocytes/100 WBC (Bld) 3.3 % 0-10 [facility] Blood platelet mean volumeOr dered By: Bronson Retana on 06-06-2023 Platelet mean volume (Bld) [Entitic vol] 10.7 fL 6.2-12.0 [facility] Determination of erythrocyte mean corpuscular volume (MCV)Ordered By: Bronson Retana on 06-06-2023 MCV (RBC) [Entitic vol] 89.3 fL 81-99 [facility] Glucose Glucometer (BldC) [M ass/Vol]Ordered By: Bronson Retana on 06-06-2023 Glucose [Mass/Vol] 327 mg/dL 74-106 [facility] Comment on above: MANAGEMENT OF PATIEN T CARE PER NURSING PROTOCOL Hematocrit Auto (Bld) [Volum e fraction]Ordered By: Bronson Retana on 06-06-2023 Hematocrit (Bld) [Volume fraction] 42.6 % 37-47 [facility] Laboratory - Chemistry and C hemistry - challengeOrdered By: Bronson Retana on 06-06-2023 CO2 [Moles/Vol] 23.0 mmol/L 21.0-32.0 [facility] Urea nitrogen/Creatinine [Mass ratio] 7.5 mg/mg 10-20 [facility] Laboratory - Hematology and Cell countsOrdered By: Bronson Retana on 06-06-2023 Erythrocyte distribution width (RBC) [Entitic vol] 44.1 fL 35.1-43.9 [facility] Erythrocyte distribution width (RBC) [Ratio] 13.4 % 11.6-14.6 [facility] Immature granulocytes/100 WBC (Bld) 0.500 % 0.0-0.9 [facility] Comment on above: IG% - Immature Granu locytes (promyelocytes, myelocytes and metamyelocytes) > 1% indicates that a LEFT SHIFT is Present. MCH (RBC) [Entitic mass] 28.7 pg 27.0-32.0 [facility] Nucleated RBC/100 WBC (Bld) [Ratio] 0 % 0-5 [facility] MCHC Auto (RBC) [Mass/Vol]Or dered By: Bronson Retana on 06-06-2023 MCHC (RBC) [Mass/Vol] 32.2 g/dL 32-36 [facility] No Panel InformationOrdered By: Bronson Retana on 06-06-2023 Estimated GFR (MDRD) Amer 52 mL/min >60 [facility] Comment on above: GFR Calc Estimated GFR (MDRD) Non-Af Amer 43 mL/min >60 [facility] Comment on above: Non- GFR Calc Platelets bldOrdered By: Yoni Retana on 06-06-2023 Platelets (Bld) [#/Vol] 233 10*3/uL 150-450 [facility] Serum or plasma acetone tai urement (mass/volume)Ordered By: Bronson Retana on 06-06-2023 Acetone [Mass/Vol] Negative NEG [facility] Serum or plasma calcium tai urement (mass/volume)Ordered By: Bronson Retana on 06-06-2023 Calcium [Mass/Vol] 8.9 mg/dL 8.5-10.1 [facility] Serum or plasma creatinine m easurement (mass/volume)Ordered By: Bronson Retana on 06-06-2023 Creatinine [Mass/Vol] 1.34 mg/dL 0.55-1.02 [facility] Comment on above: The validity of the calculated GFR & GFRAA in patients over 70 years has not been determined. Clinical correlation is essential. Serum or plasma urea nitroge n measurement (mass/volume)Ordered By: Bronson Retana on 06-06-2023 Urea nitrogen [Mass/Vol] 10 mg/dL 7-18 [facility] Thin prep Papanicolaou smear with manual screeningOrdered By: Bronson Retana on 06-06-2023 Thin prep Papanicolaou smear with manual screening 12 5-15 [facility] Absolute lymphocyte countOrd ered By: ED PROVIDER on 06-04-2023 Lymphocytes Auto (Unsp spec) [#/Vol] 2.58 10*3/uL 0.83-4.51 [facility] Basophil percentageOrdered B y: Bronson Retana on 06-04-2023 Basophil percentage 0-5 SEEN /hpf 0-5 [facility] Basophil percentageOrdered B y: ED PROVIDER on 06-04-2023 Basophils/100 WBC (Bld) 0.8 % 0-1 [facility] Bilirubin [Mass/Vol] 0.80 mg/dL 0.20-1.00 [facility] Comment on above: For patients on eltr ombopag therapy, use of Dimension [place] TBIL is not recommended. Chloride [Moles/Vol] 90 mmol/L 98-107 [facility] Eosinophils/100 WBC (Bld) 0.5 % 0-5 [facility] Glucose [Mass/Vol] 491 mg/dL 74-106 [facility] Comment on above: Critical Result(s) C alled at: 15:52:49 06/04/2023 by: Tomasa Romero. Results read back by same.Glucose result greater than or equal to 200 mg/dLsuggests DIABETES MELLITUS per A.D.A. criteria. Neutrophils (Bld) [#/Vol] 3.6 10*3/uL 2.0-7.7 [facility] Neutrophils/100 WBC (Bld) 55.4 % 47-70 [facility] Potassium [Moles/Vol] 3.8 mmol/L 3.5-5.1 [facility] Protein [Mass/Vol] 7.6 g/dL 6.4-8.2 [facility] Sodium [Moles/Vol] 127 mmol/L 136-145 [facility] WBC (Bld) [#/Vol] 6.5 10*3/uL 4.4-11.0 [facility] Bilirubin Test strip Ql (U)O rdered By: Bronson Retana on 06-04-2023 Bilirubin Ql (U) Negative Negative [facility] Blood erythrocytes count (nu mber/volume)Ordered By: ED PROVIDER on 06-04-2023 RBC (Bld) [#/Vol] 4.83 10*6/uL 4.2-5.4 [facility] Blood hemoglobin measurement (mass/volume)Ordered By: ED PROVIDER on 06-04-2023 Hemoglobin (Bld) [Mass/Vol] 14.0 g/dL 12.0-15.0 [facility] Blood lymphocytes/100 leukoc ytesOrdered By: ED PROVIDER on 06-04-2023 Lymphocytes/100 WBC (Bld) 39.6 % 19-41 [facility] Blood monocytes/100 leukocyt esOrdered By: ED PROVIDER on 06-04-2023 Monocytes/100 WBC (Bld) 3.2 % 0-10 [facility] Blood platelet mean volumeOr dered By: ED PROVIDER on 06-04-2023 Platelet mean volume (Bld) [Entitic vol] 10.7 fL 6.2-12.0 [facility] Determination of erythrocyte mean corpuscular volume (MCV)Ordered By: ED PROVIDER on 06-04-2023 MCV (RBC) [Entitic vol] 87.0 fL 81-99 [facility] Glucose Glucometer (BldC) [M ass/Vol]Ordered By: Bronson Retana on 06-04-2023 Glucose [Mass/Vol] 274 mg/dL 74-106 [facility] Comment on above: MANAGEMENT OF PATIEN T CARE PER NURSING PROTOCOL Glucose [Mass/Vol] 379 mg/dL 74-106 [facility] Comment on above: MANAGEMENT OF PATIEN T CARE PER NURSING PROTOCOL Hematocrit Auto (Bld) [Volum e fraction]Ordered By: ED PROVIDER on 06-04-2023 Hematocrit (Bld) [Volume fraction] 42.0 % 37-47 [facility] Ketones Test strip Ql (U)Ord ered By: Bronson Retana on 06-04-2023 Ketones Ql (U) 15 mg/dl Negative [facility] Laboratory - Chemistry and C hemistry - challengeOrdered By: ED PROVIDER on 06-04-2023 ALP [Catalytic activity/Vol] 78 U/L 45-117 [facility] ALT [Catalytic activity/Vol] 29 U/L 13-56 [facility] CO2 [Moles/Vol] 27.0 mmol/L 21.0-32.0 [facility] Globulin (S) [Mass/Vol] 4.1 g/dL 2.2-4.2 [facility] Urea nitrogen/Creatinine [Mass ratio] 10.6 mg/mg 10-20 [facility] Laboratory - Chemistry and C hemistry - challengeOrdered By: Bronson Retana on 06-04-2023 Lipase [Catalytic activity/Vol] 39 U/L 13-75 [facility] Comment on above: Please note:LIPASE r evised reference range effective 23. New Lipase methodology. Expected to produce lower values than the previous assay method. NEW Reference Range: 13 - 75 U/L Laboratory - Hematology and Cell countsOrdered By: ED PROVIDER on 06-04-2023 Erythrocyte distribution width (RBC) [Entitic vol] 42.1 fL 35.1-43.9 [facility] Erythrocyte distribution width (RBC) [Ratio] 13.3 % 11.6-14.6 [facility] Immature granulocytes/100 WBC (Bld) 0.500 % 0.0-0.9 [facility] Comment on above: IG% - Immature Granu locytes (promyelocytes, myelocytes and metamyelocytes) > 1% indicates that a LEFT SHIFT is Present. MCH (RBC) [Entitic mass] 29.0 pg 27.0-32.0 [facility] Nucleated RBC/100 WBC (Bld) [Ratio] 0 % 0-5 [facility] MCHC Auto (RBC) [Mass/Vol]Or dered By: ED PROVIDER on 06-04-2023 MCHC (RBC) [Mass/Vol] 33.3 g/dL 32-36 [facility] Mucus LM Ql (Urine sed)Order ed By: Bronson Retana on 06-04-2023 Mucus Ql (Urine sed) 0 SEEN /hpf [facility] Nitrite Test strip Ql (U)Ord ered By: Bronson Retana on 06-04-2023 Nitrite Ql (U) Negative Negative [facility] No Panel InformationOrdered By: ED PROVIDER on 06-04-2023 Estimated GFR (MDRD) Amer 53 mL/min >60 [facility] Comment on above: GFR Calc Estimated GFR (MDRD) Non-Af Amer 44 mL/min >60 [facility] Comment on above: Non- GFR Calc Platelets bldOrdered By: ED PROVIDER on 06-04-2023 Platelets (Bld) [#/Vol] 240 10*3/uL 150-450 [facility] Protein Test strip Ql (U)Ord ered By: Bronson Retana on 06-04-2023 Protein Ql (U) 30 mg/dl Negative [facility] Serum or plasma albumin tai urement (mass/volume)Ordered By: ED PROVIDER on 06-04-2023 Albumin [Mass/Vol] 3.5 g/dL 3.2-5.0 [facility] Serum or plasma albumin/glob ulin mass ratioOrdered By: ED PROVIDER on 06-04-2023 Albumin/Globulin [Mass ratio] 0.9 {ratio} 0.9-2.4 [facility] Serum or plasma calcium tai urement (mass/volume)Ordered By: ED PROVIDER on 06-04-2023 Calcium [Mass/Vol] 9.1 mg/dL 8.5-10.1 [facility] Serum or plasma creatinine m easurement (mass/volume)Ordered By: ED PROVIDER on 06-04-2023 Creatinine [Mass/Vol] 1.32 mg/dL 0.55-1.02 [facility] Comment on above: The validity of the calculated GFR & GFRAA in patients over 70 years has not been determined. Clinical correlation is essential. Serum or plasma urea nitroge n measurement (mass/volume)Ordered By: ED PROVIDER on 06-04-2023 Urea nitrogen [Mass/Vol] 14 mg/dL 7-18 [facility] Squamous epithelial cells de tection in urine sediment by light microscopyOrdered By: Bronson Retana on 06-04-2023 Epithelial cells.squamous LM Ql (Urine sed) 0-5 SEEN /hpf 5-10 [facility] Thin prep Papanicolaou smear with manual screeningOrdered By: ED PROVIDER on 06-04-2023 Thin prep Papanicolaou smear with manual screening 21 U/L 15-37 [facility] Thin prep Papanicolaou smear with manual screening 10 5-15 [facility] Urine blood detectionOrdered By: Bronson Retana on 06-04-2023 RBC Ql (U) 10 /ul Negative [facility] RBC Ql (U) 0 SEEN /hpf 0-5 [facility] Urine clarityOrdered By: Yoni Retana on 06-04-2023 Clarity (U) Clear Clear [facility] Urine color determinationOrd ered By: Bronson Retana on 06-04-2023 Color (U) Yellow Yellow [facility] Urine glucose detectionOrder ed By: Bronson Retana on 06-04-2023 Glucose Ql (U) 1000 mg/dl Normal [facility] Urine leukocyte esterase det ection by dipstickOrdered By: Bronson Retana on 06-04-2023 Leukocyte esterase Test strip Ql (U) 25 /ul Negative [facility] Urine pHOrdered By: Bronson bonilla on 06-04-2023 pH (U) 6.5 [pH] 5.0 - 8.0 [facility] Urine sediment bacteria coun t by microscopy (number/high power field)Ordered By: Bronson Retana on 06-04-2023 Bacteria LM.HPF (Urine sed) [#/Area] 0 /[HPF] None Seen [facility] Urine sediment yeast count b y microscopy (number/high powered field)Ordered By: Bronson Retana on 06-04-2023 Yeast LM.HPF (Urine sed) [#/Area] RARE /hpf None Seen [facility] Urine specific gravity measu rementOrdered By: Bronson Retana on 06-04-2023 Specific gravity (U) [Rel density] 1.010 1.002-1.03 0 [facility] Urobilinogen Auto test strip Ql (U)Ordered By: Bronson Retana on 06-04-2023 Urobilinogen Ql (U) Normal mg/dl Normal [facility] Absolute lymphocyte countOrd ered By: Dr. Peterson on 03-28-2023 Lymphocytes Auto (Unsp spec) [#/Vol] 2.76 10*3/uL 0.83-4.51 [facility] Basophil percentageOrdered B y: Dr. Peterson on 03-28-2023 Basophils/100 WBC (Bld) 0.5 % 0-1 [facility] Bilirubin [Mass/Vol] 0.60 mg/dL 0.20-1.00 [facility] Comment on above: For patients on eltr ombopag therapy, use of Dimension [place] TBIL is not recommended. Chloride [Moles/Vol] 100 mmol/L 98-107 [facility] Eosinophils/100 WBC (Bld) 0.9 % 0-5 [facility] Glucose [Mass/Vol] 374 mg/dL 74-106 [facility] Comment on above: Glucose result great er than or equal to 200 mg/dLsuggests DIABETES MELLITUS per A.D.A. criteria. Neutrophils (Bld) [#/Vol] 8.7 10*3/uL 2.0-7.7 [facility] Neutrophils/100 WBC (Bld) 71.5 % 47-70 [facility] Potassium [Moles/Vol] 4.3 mmol/L 3.5-5.1 [facility] Protein [Mass/Vol] 7.6 g/dL 6.4-8.2 [facility] Sodium [Moles/Vol] 134 mmol/L 136-145 [facility] WBC (Bld) [#/Vol] 12.1 10*3/uL 4.4-11.0 [facility] Blood erythrocytes count (nu mber/volume)Ordered By: Dr. Peterson on 03-28-2023 RBC (Bld) [#/Vol] 4.33 10*6/uL 4.2-5.4 [facility] Blood hemoglobin measurement (mass/volume)Ordered By: Dr. Peterson on 03-28-2023 Hemoglobin (Bld) [Mass/Vol] 12.4 g/dL 12.0-15.0 [facility] Blood lymphocytes/100 leukoc ytesOrdered By: Dr. Peterson on 03-28-2023 Lymphocytes/100 WBC (Bld) 22.8 % 19-41 [facility] Blood monocytes/100 leukocyt esOrdered By: Dr. Peterson on 03-28-2023 Monocytes/100 WBC (Bld) 3.9 % 0-10 [facility] Blood platelet mean volumeOr dered By: Dr. Peterson on 03-28-2023 Platelet mean volume (Bld) [Entitic vol] 9.3 fL 6.2-12.0 [facility] Determination of erythrocyte mean corpuscular volume (MCV)Ordered By: Dr. Peterson on 03-28-2023 MCV (RBC) [Entitic vol] 90.5 fL 81-99 [facility] Hematocrit Auto (Bld) [Volum e fraction]Ordered By: Dr. Peterson on 03-28-2023 Hematocrit (Bld) [Volume fraction] 39.2 % 37-47 [facility] Laboratory - Chemistry and C hemistry - challengeOrdered By: Dr. Peterson on 03-28-2023 ALP [Catalytic activity/Vol] 75 U/L 45-117 [facility] ALT [Catalytic activity/Vol] 32 U/L 13-56 [facility] CO2 [Moles/Vol] 22.0 mmol/L 21.0-32.0 [facility] Globulin (S) [Mass/Vol] 4.1 g/dL 2.2-4.2 [facility] Urea nitrogen/Creatinine [Mass ratio] 17.9 mg/mg 10-20 [facility] Laboratory - Hematology and Cell countsOrdered By: Dr. Peterson on 03-28-2023 Erythrocyte distribution width (RBC) [Entitic vol] 42.0 fL 35.1-43.9 [facility] Erythrocyte distribution width (RBC) [Ratio] 12.7 % 11.6-14.6 [facility] Immature granulocytes/100 WBC (Bld) 0.400 % 0.0-0.9 [facility] Comment on above: IG% - Immature Granu locytes (promyelocytes, myelocytes and metamyelocytes) > 1% indicates that a LEFT SHIFT is Present. MCH (RBC) [Entitic mass] 28.6 pg 27.0-32.0 [facility] Nucleated RBC/100 WBC (Bld) [Ratio] 0 % 0-5 [facility] MCHC Auto (RBC) [Mass/Vol]Or dered By: Dr. Peterson on 03-28-2023 MCHC (RBC) [Mass/Vol] 31.6 g/dL 32-36 [facility] No Panel InformationOrdered By: Dr. Peterson on 03-28-2023 Estimated Creatinine Clearance Calc 32.47 ml/min [facility] Estimated GFR (MDRD) Amer 52 mL/min >60 [facility] Comment on above: GFR Calc Estimated GFR (MDRD) Non-Af Amer 43 mL/min >60 [facility] Comment on above: Non- GFR Calc Platelets bldOrdered By: Dr. Peterson on 03-28-2023 Platelets (Bld) [#/Vol] 347 10*3/uL 150-450 [facility] Serum or plasma albumin tai urement (mass/volume)Ordered By: Dr. Peterson on 03-28-2023 Albumin [Mass/Vol] 3.5 g/dL 3.2-5.0 [facility] Serum or plasma albumin/glob ulin mass ratioOrdered By: Dr. Peterson on 03-28-2023 Albumin/Globulin [Mass ratio] 0.9 {ratio} 0.9-2.4 [facility] Serum or plasma calcium tai urement (mass/volume)Ordered By: Dr. Peterson on 03-28-2023 Calcium [Mass/Vol] 9.1 mg/dL 8.5-10.1 [facility] Serum or plasma creatinine m easurement (mass/volume)Ordered By: Dr. Peterson on 03-28-2023 Creatinine [Mass/Vol] 1.34 mg/dL 0.55-1.02 [facility] Comment on above: The validity of the calculated GFR & GFRAA in patients over 70 years has not been determined. Clinical correlation is essential. Serum or plasma urea nitroge n measurement (mass/volume)Ordered By: Dr. Peterson on 03-28-2023 Urea nitrogen [Mass/Vol] 24 mg/dL 7-18 [facility] Thin prep Papanicolaou smear with manual screeningOrdered By: Dr. Peterson on 03-28-2023 Thin prep Papanicolaou smear with manual screening 29 U/L 15-37 [facility] Thin prep Papanicolaou smear with manual screening 12 5-15 [facility] Basophil percentageOrdered B y: Lizet Linares on 03-16-2023 Chloride [Moles/Vol] 105 mmol/L 98-107 [facility] Glucose [Mass/Vol] 171 mg/dL 74-106 [facility] Comment on above: Fasting Glucose resu lt greater than or equal to 126 mg/dL suggests DIABETES MELLITUS per A.D.A. criteria. Potassium [Moles/Vol] 3.8 mmol/L 3.5-5.1 [facility] Sodium [Moles/Vol] 139 mmol/L 136-145 [facility] WBC (Bld) [#/Vol] 7.0 10*3/uL 4.4-11.0 [facility] Blood erythrocytes count (nu mber/volume)Ordered By: Lizet Linares on 03-16-2023 RBC (Bld) [#/Vol] 3.74 10*6/uL 4.2-5.4 [facility] Blood hemoglobin measurement (mass/volume)Ordered By: Lizet Linares on 03-16-2023 Hemoglobin (Bld) [Mass/Vol] 10.8 g/dL 12.0-15.0 [facility] Blood platelet mean volumeOr dered By: Lizet Linares on 03-16-2023 Platelet mean volume (Bld) [Entitic vol] 9.6 fL 6.2-12.0 [facility] Determination of erythrocyte mean corpuscular volume (MCV)Ordered By: Lizet Linares on 03-16-2023 MCV (RBC) [Entitic vol] 93.0 fL 81-99 [facility] Hematocrit Auto (Bld) [Volum e fraction]Ordered By: Lizet Linares on 03-16-2023 Hematocrit (Bld) [Volume fraction] 34.8 % 37-47 [facility] Laboratory - Chemistry and C hemistry - challengeOrdered By: Lizet Linares on 03-16-2023 CO2 [Moles/Vol] 27.0 mmol/L 21.0-32.0 [facility] Urea nitrogen/Creatinine [Mass ratio] 18.0 mg/mg 10-20 [facility] Laboratory - Hematology and Cell countsOrdered By: Lizet Linares on 03-16-2023 Erythrocyte distribution width (RBC) [Entitic vol] 44.1 fL 35.1-43.9 [facility] Erythrocyte distribution width (RBC) [Ratio] 13.0 % 11.6-14.6 [facility] MCH (RBC) [Entitic mass] 28.9 pg 27.0-32.0 [facility] MCHC Auto (RBC) [Mass/Vol]Or dered By: Lizet Linares on 03-16-2023 MCHC (RBC) [Mass/Vol] 31.0 g/dL 32-36 [facility] No Panel InformationOrdered By: Lizet Linares on 03-16-2023 Estimated GFR (MDRD) Amer 73 mL/min >60 [facility] Comment on above: GFR Calc Estimated GFR (MDRD) Non-Af Amer 60 mL/min >60 [facility] Comment on above: Non- GFR Calc Platelets bldOrdered By: Bart maldonado Milagros on 03-16-2023 Platelets (Bld) [#/Vol] 277 10*3/uL 150-450 [facility] Serum or plasma calcium tai urement (mass/volume)Ordered By: Lizet Linares on 03-16-2023 Calcium [Mass/Vol] 8.8 mg/dL 8.5-10.1 [facility] Serum or plasma creatinine m easurement (mass/volume)Ordered By: Lizet Linares on 03-16-2023 Creatinine [Mass/Vol] 1.00 mg/dL 0.55-1.02 [facility] Comment on above: The validity of the calculated GFR & GFRAA in patients over 70 years has not been determined. Clinical correlation is essential. Serum or plasma urea nitroge n measurement (mass/volume)Ordered By: Lizet Linares on 03-16-2023 Urea nitrogen [Mass/Vol] 18 mg/dL 7-18 [facility] Thin prep Papanicolaou smear with manual screeningOrdered By: [facility] Linares on 03-16-2023 Thin prep Papanicolaou smear with manual screening 7 5-15 [facility] Basophil percentageOrdered B y: Ganesh Garcia on 03-02-2023 Chloride [Moles/Vol] 106 mmol/L 98-107 [facility] Glucose [Mass/Vol] 241 mg/dL 74-106 [facility] Comment on above: Glucose result great er than or equal to 200 mg/dLsuggests DIABETES MELLITUS per A.D.A. criteria. Potassium [Moles/Vol] 4.2 mmol/L 3.5-5.1 [facility] Sodium [Moles/Vol] 138 mmol/L 136-145 [facility] WBC (Bld) [#/Vol] 6.4 10*3/uL 4.4-11.0 [facility] Blood erythrocytes count (nu mber/volume)Ordered By: Ganesh Garcia on 03-02-2023 RBC (Bld) [#/Vol] 3.81 10*6/uL 4.2-5.4 [facility] Blood hemoglobin measurement (mass/volume)Ordered By: Ganesh Garcia on 03-02-2023 Hemoglobin (Bld) [Mass/Vol] 11.2 g/dL 12.0-15.0 [facility] Blood platelet mean volumeOr dered By: Ganesh Garcia on 03-02-2023 Platelet mean volume (Bld) [Entitic vol] 9.5 fL 6.2-12.0 [facility] Determination of erythrocyte mean corpuscular volume (MCV)Ordered By: Ganesh Garcia on 03-02-2023 MCV (RBC) [Entitic vol] 92.7 fL 81-99 [facility] Hematocrit Auto (Bld) [Volum e fraction]Ordered By: Ganesh Garcia on 03-02-2023 Hematocrit (Bld) [Volume fraction] 35.3 % 37-47 [facility] Laboratory - Chemistry and C hemistry - challengeOrdered By: Ganesh Garcia on 03-02-2023 CO2 [Moles/Vol] 26.0 mmol/L 21.0-32.0 [facility] Urea nitrogen/Creatinine [Mass ratio] 21.9 mg/mg 10-20 [facility] Laboratory - Hematology and Cell countsOrdered By: Ganesh Garcia on 03-02-2023 Erythrocyte distribution width (RBC) [Entitic vol] 44.9 fL 35.1-43.9 [facility] Erythrocyte distribution width (RBC) [Ratio] 13.2 % 11.6-14.6 [facility] MCH (RBC) [Entitic mass] 29.4 pg 27.0-32.0 [facility] MCHC Auto (RBC) [Mass/Vol]Or dered By: Ganesh Garcia on 03-02-2023 MCHC (RBC) [Mass/Vol] 31.7 g/dL 32-36 [facility] No Panel InformationOrdered By: Ganesh Garcia on 03-02-2023 Estimated GFR (MDRD) Amer 81 mL/min >60 [facility] Comment on above: GFR Calc Estimated GFR (MDRD) Non-Af Amer 67 mL/min >60 [facility] Comment on above: Non- GFR Calc Platelets bldOrdered By: Robert Garcia on 03-02-2023 Platelets (Bld) [#/Vol] 292 10*3/uL 150-450 [facility] Serum or plasma calcium tai urement (mass/volume)Ordered By: Ganesh Garcia on 03-02-2023 Calcium [Mass/Vol] 9.0 mg/dL 8.5-10.1 [facility] Serum or plasma creatinine m easurement (mass/volume)Ordered By: Ganesh Garcia on 03-02-2023 Creatinine [Mass/Vol] 0.92 mg/dL 0.55-1.02 [facility] Comment on above: The validity of the calculated GFR & GFRAA in patients over 70 years has not been determined. Clinical correlation is essential. Serum or plasma urea nitroge n measurement (mass/volume)Ordered By: Ganesh Garcia on 03-02-2023 Urea nitrogen [Mass/Vol] 20 mg/dL 7-18 [facility] Thin prep Papanicolaou smear with manual screeningOrdered By: Ganesh Garcia on 03-02-2023 Thin prep Papanicolaou smear with manual screening 6 -15 [facility] Laboratory - Drug toxicology Ordered By: Dr. Renteria on 03-01-2023 Amphetamines Ql (U) Negative <1000 ng/mL [facility] Benzodiazepines Ql (U) Negative < 200 ng/mL [facility] Cannabinoids Screen Ql (U) Negative < 50 ng/mL [facility] Cocaine Ql (U) Negative < 300 ng/mL [facility] Opiates Ql (U) Negative < 300 ng/mL [facility] No Panel InformationOrdered By: Dr. Renteria on 03-01-2023 MDMA (Ecstasy) Screen Negative < 500 ng/mL [facility] Miscellaneous Test See comment [facility] Comment on above: [id number]+OXYCODONE-B UND (ng/mL) DRUG RESULT SCREEN CUTOFF____ Amphetamines,Urine Negative ng/mL 1000 Amphetamine test includes Amphetamine and Methamphetamine.Barbiturates Negative ng/mL 200Benzodiazepines Negative ng/mL 200Cannabinoid Negative ng/mL 20Cocaine (Metab) Negative ng/mL 300Opiates Negative ng/mL 300 Opiates test includes Codeine, Morphine, Hydromorphone, Hydrocodone. Oxycodone/Oxymorphone,Urine Negative ng/mL 300 Test includes Oxydodone and Oxymorphone. TESTING PERFORMED AT [facility]. ORIGINAL REPORT ON FILE IN LAB CONTAINS ADDITIONAL TEST SITE INFORMATION. Urine Barbiturates Screen Negative < 200 ng/mL [facility] Urine Drug Screen Comment [facility] Comment on above: CONFIRMATORY TESTING FOR ALL [...] Urine Methadone Screen Negative < 300 ng/mL [facility] Urine phencyclidine (PCP) de tectionOrdered By: Dr. Renteria on 03-01-2023 Phencyclidine Ql (U) Negative < 25 ng/mL [facility] Basophil percentageOrdered B y: Lizet Linares on 02-16-2023 Chloride [Moles/Vol] 102 mmol/L 98-107 [facility] Glucose [Mass/Vol] 380 mg/dL 74-106 [facility] Comment on above: Glucose result great er than or equal to 200 mg/dLsuggests DIABETES MELLITUS per A.D.A. criteria. Potassium [Moles/Vol] 4.1 mmol/L 3.5-5.1 [facility] Sodium [Moles/Vol] 133 mmol/L 136-145 [facility] WBC (Bld) [#/Vol] 6.8 10*3/uL 4.4-11.0 [facility] Blood erythrocytes count (nu mber/volume)Ordered By: Lizet Linares on 02-16-2023 RBC (Bld) [#/Vol] 3.97 10*6/uL 4.2-5.4 [facility] Blood hemoglobin measurement (mass/volume)Ordered By: Lizet Linares on 02-16-2023 Hemoglobin (Bld) [Mass/Vol] 11.8 g/dL 12.0-15.0 [facility] Blood platelet mean volumeOr dered By: Lizet Linares on 02-16-2023 Platelet mean volume (Bld) [Entitic vol] 9.6 fL 6.2-12.0 [facility] Determination of erythrocyte mean corpuscular volume (MCV)Ordered By: Lizet Linares on 02-16-2023 MCV (RBC) [Entitic vol] 92.2 fL 81-99 [facility] Hematocrit Auto (Bld) [Volum e fraction]Ordered By: Lizet Linares on 02-16-2023 Hematocrit (Bld) [Volume fraction] 36.6 % 37-47 [facility] Laboratory - Chemistry and C hemistry - challengeOrdered By: Hollymonterey parknatasha Linares on 02-16-2023 CO2 [Moles/Vol] 29.0 mmol/L 21.0-32.0 [facility] Urea nitrogen/Creatinine [Mass ratio] 19.4 mg/mg 10-20 [facility] Laboratory - Hematology and Cell countsOrdered By: Lizet Linares on 02-16-2023 Erythrocyte distribution width (RBC) [Entitic vol] 45.4 fL 35.1-43.9 [facility] Erythrocyte distribution width (RBC) [Ratio] 13.4 % 11.6-14.6 [facility] MCH (RBC) [Entitic mass] 29.7 pg 27.0-32.0 [facility] MCHC Auto (RBC) [Mass/Vol]Or dered By: Lizet Linares on 02-16-2023 MCHC (RBC) [Mass/Vol] 32.2 g/dL 32-36 [facility] No Panel InformationOrdered By: Lizet Linares on 02-16-2023 Estimated GFR (MDRD) Amer 70 mL/min >60 [facility] Comment on above: GFR Calc Estimated GFR (MDRD) Non-Af Amer 58 mL/min >60 [facility] Comment on above: Non- GFR Calc Platelets bldOrdered By: Bart Linares on 02-16-2023 Platelets (Bld) [#/Vol] 251 10*3/uL 150-450 [facility] Serum or plasma calcium tai urement (mass/volume)Ordered By: Lizet Linares on 02-16-2023 Calcium [Mass/Vol] 8.7 mg/dL 8.5-10.1 [facility] Serum or plasma creatinine m easurement (mass/volume)Ordered By: Lizet Linares on 02-16-2023 Creatinine [Mass/Vol] 1.03 mg/dL 0.55-1.02 [facility] Comment on above: The validity of the calculated GFR & GFRAA in patients over 70 years has not been determined. Clinical correlation is essential. Serum or plasma urea nitroge n measurement (mass/volume)Ordered By: Lizet Linares on 02-16-2023 Urea nitrogen [Mass/Vol] 20 mg/dL 7-18 [facility] Thin prep Papanicolaou smear with manual screeningOrdered By: Lizet Linares on 02-16-2023 Thin prep Papanicolaou smear with manual screening 2 5-15 [facility] Absolute lymphocyte countOrd ered By: Lizet Linares on 02-02-2023 Lymphocytes Auto (Unsp spec) [#/Vol] 3.01 10*3/uL 0.83-4.51 [facility] Basophil percentageOrdered B y: Lizet Linares on 02-02-2023 Basophil percentage 247 mg/dL 74-106 [facility] Basophil percentage 136 mmol/L 136-145 [facility] Basophil percentage 4.2 mmol/L 3.5-5.1 [facility] Basophil percentage 103 mmol/L 98-107 [facility] Basophils (Bld) [#/Vol] 9.3 10*3/uL 4.4-11.0 [facility] Basophils (Bld) [#/Vol] 5.7 10*3/uL 2.0-7.7 [facility] Basophils/100 WBC (Bld) 60.8 % 47-70 [facility] Basophils/100 WBC (Bld) 0.4 % 0-5 [facility] Basophils/100 WBC (Bld) 0.6 % 0-1 [facility] Chloride [Moles/Vol] 103 mmol/L 98-107 [facility] Eosinophils/100 WBC (Bld) 0.4 % 0-5 [facility] Glucose [Mass/Vol] 247 mg/dL 74-106 [facility] Comment on above: Glucose result great er than or equal to 200 mg/dLsuggests DIABETES MELLITUS per A.D.A. criteria. Neutrophils (Bld) [#/Vol] 5.7 10*3/uL 2.0-7.7 [facility] Neutrophils/100 WBC (Bld) 60.8 % 47-70 [facility] Potassium [Moles/Vol] 4.2 mmol/L 3.5-5.1 [facility] Sodium [Moles/Vol] 136 mmol/L 136-145 [facility] WBC (Bld) [#/Vol] 9.3 10*3/uL 4.4-11.0 [facility] Blood erythrocytes count (nu mber/volume)Ordered By: Lizet Linares on 02-02-2023 RBC (Bld) [#/Vol] 3.83 10*6/uL 4.2-5.4 [facility] Blood hemoglobin measurement (mass/volume)Ordered By: Lizet Linares on 02-02-2023 Hemoglobin (Bld) [Mass/Vol] 11.3 g/dL 12.0-15.0 [facility] Blood lymphocytes/100 leukoc ytesOrdered By: Lizet Linares on 02-02-2023 Lymphocytes/100 WBC (Bld) 32.3 % 19-41 [facility] Blood monocytes/100 leukocyt esOrdered By: Lizet Linares on 02-02-2023 Monocytes/100 WBC (Bld) 5.6 % 0-10 [facility] Blood platelet mean volumeOr dered By: Lizet Linares on 02-02-2023 Platelet mean volume (Bld) [Entitic vol] 9.6 fL 6.2-12.0 [facility] Determination of erythrocyte mean corpuscular volume (MCV)Ordered By: Lizet Linares on 02-02-2023 MCV (RBC) [Entitic vol] 90.9 fL 81-99 [facility] Hematocrit Auto (Bld) [Volum e fraction]Ordered By: Lizet Linares on 02-02-2023 Hematocrit (Bld) [Volume fraction] 34.8 % 37-47 [facility] Laboratory - Chemistry and C hemistry - challengeOrdered By: [facility] on 02-02-2023 CO2 [Moles/Vol] 26.0 mmol/L 21.0-32.0 [facility] Urea nitrogen/Creatinine [Mass ratio] 28.8 mg/mg 10-20 [facility] Laboratory - Hematology and Cell countsOrdered By: Lizet Linares on 02-02-2023 Erythrocyte distribution width (RBC) [Entitic vol] 44.8 fL 35.1-43.9 [facility] Erythrocyte distribution width (RBC) [Ratio] 13.3 % 11.6-14.6 [facility] Immature granulocytes/100 WBC (Bld) 0.300 % 0.0-0.9 [facility] Comment on above: IG% - Immature Granu locytes (promyelocytes, myelocytes and metamyelocytes) > 1% indicates that a LEFT SHIFT is Present. MCH (RBC) [Entitic mass] 29.5 pg 27.0-32.0 [facility] Nucleated RBC/100 WBC (Bld) [Ratio] 0 % 0-5 [facility] MCHC Auto (RBC) [Mass/Vol]Or dered By: Lizet Linares on 02-02-2023 MCHC (RBC) [Mass/Vol] 32.5 g/dL 32-36 [facility] No Panel InformationOrdered By: Lizet Linares on 02-02-2023 Estimated GFR (MDRD) Amer 65 mL/min >60 [facility] Comment on above: GFR Calc Estimated GFR (MDRD) Non-Af Amer 53 mL/min >60 [facility] Comment on above: Non- GFR Calc 29.5 pg 27.0-32.0 [facility] 13.3 % 11.6-14.6 [facility] 44.8 fl 35.1-43.9 [facility] 0.300 % 0.0-0.9 [facility] 0 % 0-5 [facility] 53 mL/min >60 [facility] 65 mL/min >60 [facility] 28.8 RATIO 10-20 [facility] 26.0 mmol/L 21.0-32.0 [facility] Platelets bldOrdered By: Bart Linares on 02-02-2023 Platelets (Bld) [#/Vol] 299 10*3/uL 150-450 [facility] Serum or plasma calcium tai urement (mass/volume)Ordered By: Lizet Linares on 02-02-2023 Calcium [Mass/Vol] 8.0 mg/dL 8.5-10.1 [facility] Serum or plasma creatinine m easurement (mass/volume)Ordered By: Lizet Linares on 02-02-2023 Creatinine [Mass/Vol] 1.11 mg/dL 0.55-1.02 [facility] Comment on above: The validity of the calculated GFR & GFRAA in patients over 70 years has not been determined. Clinical correlation is essential. Serum or plasma urea nitroge n measurement (mass/volume)Ordered By: Lizet Linares on 02-02-2023 Urea nitrogen [Mass/Vol] 32 mg/dL 7-18 [facility] Thin prep Papanicolaou smear with manual screeningOrdered By: Lizet Linares on 02-02-2023 Thin prep Papanicolaou smear with manual screening 7 5-15 [facility] Absolute lymphocyte countOrd ered By: ED PROVIDER on 01-29-2023 Lymphocytes Auto (Unsp spec) [#/Vol] 2.44 10*3/uL 0.83-4.51 [facility] Basophil percentageOrdered B y: ED PROVIDER on 01-29-2023 Basophil percentage 311 mg/dL 74-106 [facility] Basophil percentage 135 mmol/L 136-145 [facility] Basophil percentage 4.1 mmol/L 3.5-5.1 [facility] Basophil percentage 99 mmol/L 98-107 [facility] Basophils (Bld) [#/Vol] 12.0 10*3/uL 4.4-11.0 [facility] Basophils (Bld) [#/Vol] 9.0 10*3/uL 2.0-7.7 [facility] Basophils/100 WBC (Bld) 74.7 % 47-70 [facility] Basophils/100 WBC (Bld) 0.0 % 0-5 [facility] Basophils/100 WBC (Bld) 0.3 % 0-1 [facility] Chloride [Moles/Vol] 99 mmol/L 98-107 [facility] Eosinophils/100 WBC (Bld) 0.0 % 0-5 [facility] Glucose [Mass/Vol] 311 mg/dL 74-106 [facility] Comment on above: Glucose result great er than or equal to 200 mg/dLsuggests DIABETES MELLITUS per A.D.A. criteria. Neutrophils (Bld) [#/Vol] 9.0 10*3/uL 2.0-7.7 [facility] Neutrophils/100 WBC (Bld) 74.7 % 47-70 [facility] Potassium [Moles/Vol] 4.1 mmol/L 3.5-5.1 [facility] Sodium [Moles/Vol] 135 mmol/L 136-145 [facility] WBC (Bld) [#/Vol] 12.0 10*3/uL 4.4-11.0 [facility] Blood erythrocytes count (nu mber/volume)Ordered By: ED PROVIDER on 01-29-2023 RBC (Bld) [#/Vol] 4.25 10*6/uL 4.2-5.4 [facility] Blood hemoglobin measurement (mass/volume)Ordered By: ED PROVIDER on 01-29-2023 Hemoglobin (Bld) [Mass/Vol] 12.4 g/dL 12.0-15.0 [facility] Blood lymphocytes/100 leukoc ytesOrdered By: ED PROVIDER on 01-29-2023 Lymphocytes/100 WBC (Bld) 20.3 % 19-41 [facility] Blood monocytes/100 leukocyt esOrdered By: ED PROVIDER on 01-29-2023 Monocytes/100 WBC (Bld) 4.0 % 0-10 [facility] Blood platelet mean volumeOr dered By: ED PROVIDER on 01-29-2023 Platelet mean volume (Bld) [Entitic vol] 9.3 fL 6.2-12.0 [facility] Determination of erythrocyte mean corpuscular volume (MCV)Ordered By: ED PROVIDER on 01-29-2023 MCV (RBC) [Entitic vol] 89.2 fL 81-99 [facility] Hematocrit Auto (Bld) [Volum e fraction]Ordered By: ED PROVIDER on 01-29-2023 Hematocrit (Bld) [Volume fraction] 37.9 % 37-47 [facility] Laboratory - Chemistry and C hemistry - challengeOrdered By: ED PROVIDER on 01-29-2023 CO2 [Moles/Vol] 28.0 mmol/L 21.0-32.0 [facility] Urea nitrogen/Creatinine [Mass ratio] 22.3 mg/mg 10-20 [facility] Laboratory - Hematology and Cell countsOrdered By: ED PROVIDER on 01-29-2023 Erythrocyte distribution width (RBC) [Entitic vol] 43.1 fL 35.1-43.9 [facility] Erythrocyte distribution width (RBC) [Ratio] 13.2 % 11.6-14.6 [facility] Immature granulocytes/100 WBC (Bld) 0.700 % 0.0-0.9 [facility] Comment on above: IG% - Immature Granu locytes (promyelocytes, myelocytes and metamyelocytes) > 1% indicates that a LEFT SHIFT is Present. MCH (RBC) [Entitic mass] 29.2 pg 27.0-32.0 [facility] Nucleated RBC/100 WBC (Bld) [Ratio] 0 % 0-5 [facility] MCHC Auto (RBC) [Mass/Vol]Or dered By: ED PROVIDER on 01-29-2023 MCHC (RBC) [Mass/Vol] 32.7 g/dL 32-36 [facility] No Panel InformationOrdered By: Dr. Dunn on 01-29-2023 Troponin I High Sensitivity 13 pg/mL 3.0-54.0 [facility] Comment on above: Please Note: New Carolann t Units and Gender Specific Reference Ranges. For more information see Policy Stat Procedure [place] High Sensitivity Troponin (TNIH) and attachments. 13 pg/mL 3.0-54.0 [facility] D-Dimer Quantitative (PE/DVT) 0.39 FEU/ug/m 0.27-0.49 [facility] Comment on above: NORMAL D-Dimer level (<0.50) indicates no DVT or PE. 0.39 FEU/ug/m 0.27-0.49 [facility] No Panel InformationOrdered By: ED PROVIDER on 01-29-2023 Estimated Creatinine Clearance Calc 38.85 ml/min [facility] Estimated GFR (MDRD) Amer 64 mL/min >60 [facility] Comment on above: GFR Calc Estimated GFR (MDRD) Non-Af Amer 53 mL/min >60 [facility] Comment on above: Non- GFR Calc 29.2 pg 27.0-32.0 [facility] 13.2 % 11.6-14.6 [facility] 43.1 fl 35.1-43.9 [facility] 0.700 % 0.0-0.9 [facility] 0 % 0-5 [facility] 53 mL/min >60 [facility] 64 mL/min >60 [facility] 38.85 ml/min [facility] 22.3 RATIO 10-20 [facility] 28.0 mmol/L 21.0-32.0 [facility] Platelets bldOrdered By: ED PROVIDER on 01-29-2023 Platelets (Bld) [#/Vol] 347 10*3/uL 150-450 [facility] Serum or plasma calcium tai urement (mass/volume)Ordered By: ED PROVIDER on 01-29-2023 Calcium [Mass/Vol] 9.3 mg/dL 8.5-10.1 [facility] Serum or plasma creatinine m easurement (mass/volume)Ordered By: ED PROVIDER on 01-29-2023 Creatinine [Mass/Vol] 1.12 mg/dL 0.55-1.02 [facility] Comment on above: The validity of the calculated GFR & GFRAA in patients over 70 years has not been determined. Clinical correlation is essential. Serum or plasma urea nitroge n measurement (mass/volume)Ordered By: ED PROVIDER on 01-29-2023 Urea nitrogen [Mass/Vol] 25 mg/dL 7-18 [facility] Thin prep Papanicolaou smear with manual screeningOrdered By: ED PROVIDER on 01-29-2023 Thin prep Papanicolaou smear with manual screening 8 5-15 [facility] Basophil percentageOrdered B y: Ganesh Garcia on 01-19-2023 Basophil percentage 197 mg/dL 74-106 [facility] Basophil percentage 138 mmol/L 136-145 [facility] Basophil percentage 4.0 mmol/L 3.5-5.1 [facility] Basophil percentage 106 mmol/L 98-107 [facility] Basophils (Bld) [#/Vol] 6.4 10*3/uL 4.4-11.0 [facility] Chloride [Moles/Vol] 106 mmol/L 98-107 [facility] Glucose [Mass/Vol] 197 mg/dL 74-106 [facility] Comment on above: Fasting Glucose resu lt greater than or equal to 126 mg/dL suggests DIABETES MELLITUS per A.D.A. criteria. Potassium [Moles/Vol] 4.0 mmol/L 3.5-5.1 [facility] Sodium [Moles/Vol] 138 mmol/L 136-145 [facility] WBC (Bld) [#/Vol] 6.4 10*3/uL 4.4-11.0 [facility] Blood erythrocytes count (nu mber/volume)Ordered By: Ganesh Garcia on 01-19-2023 RBC (Bld) [#/Vol] 3.58 10*6/uL 4.2-5.4 [facility] Blood hemoglobin measurement (mass/volume)Ordered By: Ganesh Garcia on 01-19-2023 Hemoglobin (Bld) [Mass/Vol] 10.4 g/dL 12.0-15.0 [facility] Blood platelet mean volumeOr dered By: Ganesh Garcia on 01-19-2023 Platelet mean volume (Bld) [Entitic vol] 9.9 fL 6.2-12.0 [facility] Determination of erythrocyte mean corpuscular volume (MCV)Ordered By: Ganesh Garcia on 01-19-2023 MCV (RBC) [Entitic vol] 92.5 fL 81-99 [facility] Hematocrit Auto (Bld) [Volum e fraction]Ordered By: Ganesh Garcia on 01-19-2023 Hematocrit (Bld) [Volume fraction] 33.1 % 37-47 [facility] Laboratory - Chemistry and C hemistry - challengeOrdered By: Ganesh Garcia on 01-19-2023 CO2 [Moles/Vol] 27.0 mmol/L 21.0-32.0 [facility] Urea nitrogen/Creatinine [Mass ratio] 19.3 mg/mg 10-20 [facility] Laboratory - Hematology and Cell countsOrdered By: Ganesh Garcia on 01-19-2023 Erythrocyte distribution width (RBC) [Entitic vol] 46.8 fL 35.1-43.9 [facility] Erythrocyte distribution width (RBC) [Ratio] 13.6 % 11.6-14.6 [facility] MCH (RBC) [Entitic mass] 29.1 pg 27.0-32.0 [facility] MCHC Auto (RBC) [Mass/Vol]Or dered By: Ganesh Garcia on 01-19-2023 MCHC (RBC) [Mass/Vol] 31.4 g/dL 32-36 [facility] No Panel InformationOrdered By: Ganesh Garcia on 01-19-2023 Estimated GFR (MDRD) Amer 74 mL/min >60 [facility] Comment on above: GFR Calc Estimated GFR (MDRD) Non-Af Amer 61 mL/min >60 [facility] Comment on above: Non- GFR Calc 29.1 pg 27.0-32.0 [facility] 13.6 % 11.6-14.6 [facility] 46.8 fl 35.1-43.9 [facility] 61 mL/min >60 [facility] 74 mL/min >60 [facility] 19.3 RATIO 10- [facility] 27.0 mmol/L 21.0-32.0 [facility] Platelets bldOrdered By: Robert Garcia on 01-19-2023 Platelets (Bld) [#/Vol] 285 10*3/uL 150-450 [facility] Serum or plasma calcium tai urement (mass/volume)Ordered By: Ganesh Garcia on 01-19-2023 Calcium [Mass/Vol] 8.7 mg/dL 8.5-10.1 [facility] Serum or plasma creatinine m easurement (mass/volume)Ordered By: Ganesh Garcia on 01-19-2023 Creatinine [Mass/Vol] 0.98 mg/dL 0.55-1.02 [facility] Comment on above: The validity of the calculated GFR & GFRAA in patients over 70 years has not been determined. Clinical correlation is essential. Serum or plasma urea nitroge n measurement (mass/volume)Ordered By: Ganesh Garcia on 01-19-2023 Urea nitrogen [Mass/Vol] 19 mg/dL 7-18 [facility] Thin prep Papanicolaou smear with manual screeningOrdered By: Ganesh Garcia on 01-19-2023 Thin prep Papanicolaou smear with manual screening 5 5-15 [facility] Basophil percentageOrdered B y: Ganesh Garcia on 01-18-2023 Basophil percentage 103 mg/dL <200 [facility] Basophil percentage 325 mg/dL <199 [facility] Cholesterol [Mass/Vol] 103 mg/dL <200 [facility] Comment on above: <200 mg/dL Desirable 200-240 mg/dL Borderline >240 mg/dL High Risk Triglyceride [Mass/Vol] 325 mg/dL <199 [facility] Comment on above: The drugs N-Acetylcy steine and Metamizole may falsely depress this assay.Serum Triglycerides Reference Interval Normal <150 mg/dL Borderline high 150 - 199 mg/dL High 200 - 499 mg/dL Very High > or = 500 mg/dL Serum or plasma cholesterol in HDL measurement (mass/volume)Ordered By: Ganesh Garcia on 01-18-2023 Cholesterol in HDL [Mass/Vol] 23 mg/dL >40 [facility] Comment on above: The drugs N-Acetylcy steine and Metamizole may falsely depress this assay. Reference Range HDL <40 mg/dL Low HDL Cholesterol HDL >or= 60 mg/dL High HDL Cholesterol Serum or plasma cholesterol in VLDL measurement (mass/volume)Ordered By: Ganesh Garcia on 01-18-2023 Cholesterol in VLDL [Mass/Vol] 65 mg/dL 5-40 [facility] Serum or plasma low density lipoprotein (LDL) cholesterol measurement (mass/volume)Ordered By: Ganesh Garcia on 01-18-2023 Cholesterol in LDL [Mass/Vol] 15 mg/dL 0-130 [facility] Absolute lymphocyte countOrd ered By: Dr. Govea on 01-06-2023 Lymphocytes Auto (Unsp spec) [#/Vol] 2.51 10*3/uL 0.83-4.51 [facility] Basophil percentageOrdered B y: Dr. Govea on 01-06-2023 Basophil percentage 0 SEEN /hpf 0-5 [facility] Basophil percentage 170 mg/dL 74-106 [facility] Basophil percentage 139 mmol/L 136-145 [facility] Basophil percentage 4.6 mmol/L 3.5-5.1 [facility] Basophil percentage 103 mmol/L 98-107 [facility] Basophils (Bld) [#/Vol] 6.5 10*3/uL 4.4-11.0 [facility] Basophils (Bld) [#/Vol] 3.4 10*3/uL 2.0-7.7 [facility] Basophils/100 WBC (Bld) 53.1 % 47-70 [facility] Basophils/100 WBC (Bld) 1.7 % 0-5 [facility] Basophils/100 WBC (Bld) 0.5 % 0-1 [facility] Chloride [Moles/Vol] 103 mmol/L 98-107 [facility] Eosinophils/100 WBC (Bld) 1.7 % 0-5 [facility] Glucose [Mass/Vol] 170 mg/dL 74-106 [facility] Comment on above: Fasting Glucose resu lt greater than or equal to 126 mg/dL suggests DIABETES MELLITUS per A.D.A. criteria. Neutrophils (Bld) [#/Vol] 3.4 10*3/uL 2.0-7.7 [facility] Neutrophils/100 WBC (Bld) 53.1 % 47-70 [facility] Potassium [Moles/Vol] 4.6 mmol/L 3.5-5.1 [facility] Sodium [Moles/Vol] 139 mmol/L 136-145 [facility] WBC (Bld) [#/Vol] 6.5 10*3/uL 4.4-11.0 [facility] Bilirubin Test strip Ql (U)O rdered By: Dr. Govea on 01-06-2023 Bilirubin Ql (U) Negative Negative [facility] Blood erythrocytes count (nu mber/volume)Ordered By: Dr. Govea on 01-06-2023 RBC (Bld) [#/Vol] 4.01 10*6/uL 4.2-5.4 [facility] Blood hemoglobin measurement (mass/volume)Ordered By: Dr. Govea on 01-06-2023 Hemoglobin (Bld) [Mass/Vol] 11.6 g/dL 12.0-15.0 [facility] Blood lymphocytes/100 leukoc ytesOrdered By: Dr. Govea on 01-06-2023 Lymphocytes/100 WBC (Bld) 38.7 % 19-41 [facility] Blood monocytes/100 leukocyt esOrdered By: Dr. Govea on 01-06-2023 Monocytes/100 WBC (Bld) 5.7 % 0-10 [facility] Blood platelet mean volumeOr dered By: Dr. Govea on 01-06-2023 Platelet mean volume (Bld) [Entitic vol] 9.1 fL 6.2-12.0 [facility] Determination of erythrocyte mean corpuscular volume (MCV)Ordered By: Dr. Govea on 01-06-2023 MCV (RBC) [Entitic vol] 90.8 fL 81-99 [facility] Hematocrit Auto (Bld) [Volum e fraction]Ordered By: Dr. Govea on 01-06-2023 Hematocrit (Bld) [Volume fraction] 36.4 % 37-47 [facility] Ketones Test strip Ql (U)Ord ered By: Dr. Govea on 01-06-2023 Ketones Ql (U) Negative Negative [facility] Laboratory - Chemistry and C hemistry - challengeOrdered By: Dr. Govea on 01-06-2023 CO2 [Moles/Vol] 28.0 mmol/L 21.0-32.0 [facility] Urea nitrogen/Creatinine [Mass ratio] 23.6 mg/mg 10-20 [facility] Laboratory - Hematology and Cell countsOrdered By: Dr. Govea on 01-06-2023 Erythrocyte distribution width (RBC) [Entitic vol] 44.8 fL 35.1-43.9 [facility] Erythrocyte distribution width (RBC) [Ratio] 13.6 % 11.6-14.6 [facility] Immature granulocytes/100 WBC (Bld) 0.300 % 0.0-0.9 [facility] Comment on above: IG% - Immature Granu locytes (promyelocytes, myelocytes and metamyelocytes) > 1% indicates that a LEFT SHIFT is Present. MCH (RBC) [Entitic mass] 28.9 pg 27.0-32.0 [facility] Nucleated RBC/100 WBC (Bld) [Ratio] 0 % 0-5 [facility] MCHC Auto (RBC) [Mass/Vol]Or dered By: Dr. Govea on 01-06-2023 MCHC (RBC) [Mass/Vol] 31.9 g/dL 32-36 [facility] Mucus LM Ql (Urine sed)Order ed By: Dr. Govea on 01-06-2023 Mucus Ql (Urine sed) 0 SEEN /hpf [facility] Nitrite Test strip Ql (U)Ord ered By: Dr. Govea on 01-06-2023 Nitrite Ql (U) Negative Negative [facility] No Panel InformationOrdered By: Dr. Govea on 01-06-2023 Estimated Creatinine Clearance Calc 46.78 ml/min [facility] Estimated GFR (MDRD) Amer 79 mL/min >60 [facility] Comment on above: GFR Calc Estimated GFR (MDRD) Non-Af Amer 65 mL/min >60 [facility] Comment on above: Non- GFR Calc 28.9 pg 27.0-32.0 [facility] 13.6 % 11.6-14.6 [facility] 44.8 fl 35.1-43.9 [facility] 0.300 % 0.0-0.9 [facility] 0 % 0-5 [facility] 65 mL/min >60 [facility] 79 mL/min >60 [facility] 46.78 ml/min [facility] 23.6 RATIO 10-20 [facility] 28.0 mmol/L 21.0-32.0 [facility] Platelets bldOrdered By: Dr. Govea on 01-06-2023 Platelets (Bld) [#/Vol] 295 10*3/uL 150-450 [facility] Protein Test strip Ql (U)Ord ered By: Dr. Govea on 01-06-2023 Protein Ql (U) Negative Negative [facility] Serum or plasma calcium tai urement (mass/volume)Ordered By: Dr. Govea on 01-06-2023 Calcium [Mass/Vol] 9.2 mg/dL 8.5-10.1 [facility] Serum or plasma creatinine m easurement (mass/volume)Ordered By: Dr. Govea on 01-06-2023 Creatinine [Mass/Vol] 0.93 mg/dL 0.55-1.02 [facility] Comment on above: The validity of the calculated GFR & GFRAA in patients over 70 years has not been determined. Clinical correlation is essential. Serum or plasma urea nitroge n measurement (mass/volume)Ordered By: Dr. Govea on 01-06-2023 Urea nitrogen [Mass/Vol] 22 mg/dL 7-18 [facility] Squamous epithelial cells de tection in urine sediment by light microscopyOrdered By: Dr. Govea on 01-06-2023 Epithelial cells.squamous LM Ql (Urine sed) 0 SEEN /hpf 5-10 [facility] Thin prep Papanicolaou smear with manual screeningOrdered By: Dr. Govea on 01-06-2023 Thin prep Papanicolaou smear with manual screening 8 5-15 [facility] Urine blood detectionOrdered By: Dr. Govea on 01-06-2023 RBC Ql (U) Negative Negative [facility] RBC Ql (U) 0 SEEN /hpf 0-5 [facility] Urine clarityOrdered By: Dr. Govea on 01-06-2023 Clarity (U) Clear Clear [facility] Urine color determinationOrd ered By: Dr. Govea on 01-06-2023 Color (U) Yellow Yellow [facility] Urine glucose detectionOrder ed By: Dr. Govea on 01-06-2023 Glucose Ql (U) Normal mg/dl Normal [facility] Urine leukocyte esterase det ection by dipstickOrdered By: Dr. Govea on 01-06-2023 Leukocyte esterase Test strip Ql (U) Negative Negative [facility] Urine pHOrdered By: Dr. Jovanni butler on 01-06-2023 pH (U) 7.0 [pH] 5.0 - 8.0 [facility] Urine sediment bacteria coun t by microscopy (number/high power field)Ordered By: Dr. Govea on 01-06-2023 Bacteria LM.HPF (Urine sed) [#/Area] 0 /[HPF] None Seen [facility] Urine specific gravity measu rementOrdered By: Dr. Govea on 01-06-2023 Specific gravity (U) [Rel density] 1.010 1.002-1.03 0 [facility] Urobilinogen Auto test strip Ql (U)Ordered By: Dr. Govea on 01-06-2023 Urobilinogen Ql (U) Normal mg/dl Normal [facility] Basophil percentageOrdered B y: Ganesh Garcia on 01-05-2023 Basophil percentage 175 mg/dL 74-106 [facility] Basophil percentage 140 mmol/L 136-145 [facility] Basophil percentage 4.1 mmol/L 3.5-5.1 [facility] Basophil percentage 104 mmol/L 98-107 [facility] Basophils (Bld) [#/Vol] 7.1 10*3/uL 4.4-11.0 [facility] Chloride [Moles/Vol] 104 mmol/L 98-107 [facility] Glucose [Mass/Vol] 175 mg/dL 74-106 [facility] Comment on above: Fasting Glucose resu lt greater than or equal to 126 mg/dL suggests DIABETES MELLITUS per A.D.A. criteria. Potassium [Moles/Vol] 4.1 mmol/L 3.5-5.1 [facility] Sodium [Moles/Vol] 140 mmol/L 136-145 [facility] WBC (Bld) [#/Vol] 7.1 10*3/uL 4.4-11.0 [facility] Blood erythrocytes count (nu mber/volume)Ordered By: Ganesh Garcia on 01-05-2023 RBC (Bld) [#/Vol] 3.70 10*6/uL 4.2-5.4 [facility] Blood hemoglobin measurement (mass/volume)Ordered By: Ganesh Garcia on 01-05-2023 Hemoglobin (Bld) [Mass/Vol] 11.0 g/dL 12.0-15.0 [facility] Blood platelet mean volumeOr dered By: Ganesh Garcia on 01-05-2023 Platelet mean volume (Bld) [Entitic vol] 9.1 fL 6.2-12.0 [facility] Determination of erythrocyte mean corpuscular volume (MCV)Ordered By: Ganesh Garcia on 01-05-2023 MCV (RBC) [Entitic vol] 91.9 fL 81-99 [facility] Hematocrit Auto (Bld) [Volum e fraction]Ordered By: Ganesh Garcia on 01-05-2023 Hematocrit (Bld) [Volume fraction] 34.0 % 37-47 [facility] Laboratory - Chemistry and C hemistry - challengeOrdered By: Ganesh Garcia on 01-05-2023 CO2 [Moles/Vol] 28.0 mmol/L 21.0-32.0 [facility] Urea nitrogen/Creatinine [Mass ratio] 21.5 mg/mg 10- [facility] Laboratory - Hematology and Cell countsOrdered By: Ganesh Garcia on 01-05-2023 Erythrocyte distribution width (RBC) [Entitic vol] 46.1 fL 35.1-43.9 [facility] Erythrocyte distribution width (RBC) [Ratio] 13.9 % 11.6-14.6 [facility] MCH (RBC) [Entitic mass] 29.7 pg 27.0-32.0 [facility] MCHC Auto (RBC) [Mass/Vol]Or dered By: Ganesh Garcia on 01-05-2023 MCHC (RBC) [Mass/Vol] 32.4 g/dL 32-36 [facility] No Panel InformationOrdered By: Ganesh Garcia on 01-05-2023 Estimated GFR (MDRD) Amer 75 mL/min >60 [facility] Comment on above: GFR Calc Estimated GFR (MDRD) Non-Af Amer 62 mL/min >60 [facility] Comment on above: Non- GFR Calc 29.7 pg 27.0-32.0 [facility] 13.9 % 11.6-14.6 [facility] 46.1 fl 35.1-43.9 [facility] 62 mL/min >60 [facility] 75 mL/min >60 [facility] 21.5 RATIO - [facility] 28.0 mmol/L 21.0-32.0 [facility] Platelets bldOrdered By: Robert Garcia on 01-05-2023 Platelets (Bld) [#/Vol] 299 10*3/uL 150-450 [facility] Serum or plasma calcium tai urement (mass/volume)Ordered By: Ganesh Garcia on 01-05-2023 Calcium [Mass/Vol] 9.0 mg/dL 8.5-10.1 [facility] Serum or plasma creatinine m easurement (mass/volume)Ordered By: Ganesh Garcia on 01-05-2023 Creatinine [Mass/Vol] 0.98 mg/dL 0.55-1.02 [facility] Comment on above: The validity of the calculated GFR & GFRAA in patients over 70 years has not been determined. Clinical correlation is essential. Serum or plasma urea nitroge n measurement (mass/volume)Ordered By: Ganesh Garcia on 01-05-2023 Urea nitrogen [Mass/Vol] 21 mg/dL 7-18 [facility] Thin prep Papanicolaou smear with manual screeningOrdered By: Ganesh Garcia on 01-05-2023 Thin prep Papanicolaou smear with manual screening 8 5-15 [facility] Basophil percentageOrdered B y: Lizet Linares on 12-28-2022 Basophil percentage 310 mg/dL 74-106 [facility] Basophil percentage 137 mmol/L 136-145 [facility] Basophil percentage 3.8 mmol/L 3.5-5.1 [facility] Basophil percentage 103 mmol/L 98-107 [facility] Chloride [Moles/Vol] 103 mmol/L 98-107 [facility] Glucose [Mass/Vol] 310 mg/dL 74-106 [facility] Comment on above: Glucose result great er than or equal to 200 mg/dLsuggests DIABETES MELLITUS per A.D.A. criteria. Potassium [Moles/Vol] 3.8 mmol/L 3.5-5.1 [facility] Sodium [Moles/Vol] 137 mmol/L 136-145 [facility] Laboratory - Chemistry and C hemistry - challengeOrdered By: Lizet Linares on 12-28-2022 CO2 [Moles/Vol] 26.0 mmol/L 21.0-32.0 [facility] Urea nitrogen/Creatinine [Mass ratio] 20.3 mg/mg 10-20 [facility] No Panel InformationOrdered By: Lizet Linares on 12-28-2022 Estimated GFR (MDRD) Amer 74 mL/min >60 [facility] Comment on above: GFR Calc Estimated GFR (MDRD) Non-Af Amer 61 mL/min >60 [facility] Comment on above: Non- GFR Calc 61 mL/min >60 [facility] 74 mL/min >60 [facility] 20.3 RATIO 10-20 [facility] 26.0 mmol/L 21.0-32.0 [facility] Serum or plasma calcium tai urement (mass/volume)Ordered By: Lizet Linares on 12-28-2022 Calcium [Mass/Vol] 8.7 mg/dL 8.5-10.1 [facility] Serum or plasma creatinine m easurement (mass/volume)Ordered By: Lizet Linares on 12-28-2022 Creatinine [Mass/Vol] 0.99 mg/dL 0.55-1.02 [facility] Comment on above: The validity of the calculated GFR & GFRAA in patients over 70 years has not been determined. Clinical correlation is essential. Serum or plasma urea nitroge n measurement (mass/volume)Ordered By: Lizet Linares on 12-28-2022 Urea nitrogen [Mass/Vol] 20 mg/dL 7-18 [facility] Thin prep Papanicolaou smear with manual screeningOrdered By: Lizet Linares on 12-28-2022 Thin prep Papanicolaou smear with manual screening 8 5-15 [facility] No Panel InformationOrdered By: Lizet Linares on 12-23-2022 Thyroid Stimulating Hormone (TSH) 0.40 uIU/mL 0.358-3.74 [facility] 0.40 uIU/mL 0.358-3.74 [facility] Whole blood hemoglobin A1c/t otal hemoglobin ratio (mass fraction)Ordered By: Lizet Linares on 12-23-2022 HbA1c (Bld) [Mass fraction] 7.9 % 3.8-5.6 [facility] Comment on above: Normal < 5.7 % Predi abetic 5.7 - 6.4 % Diabetic >or= 6.5 % Please note range changes. Basophil percentageOrdered B y: Lizet Linares on 12-22-2022 Basophil percentage 169 mg/dL 74-106 [facility] Basophil percentage 138 mmol/L 136-145 [facility] Basophil percentage 3.9 mmol/L 3.5-5.1 [facility] Basophil percentage 104 mmol/L 98-107 [facility] Basophils (Bld) [#/Vol] 7.4 10*3/uL 4.4-11.0 [facility] Chloride [Moles/Vol] 104 mmol/L 98-107 [facility] Glucose [Mass/Vol] 169 mg/dL 74-106 [facility] Comment on above: Fasting Glucose resu lt greater than or equal to 126 mg/dL suggests DIABETES MELLITUS per A.D.A. criteria. Potassium [Moles/Vol] 3.9 mmol/L 3.5-5.1 [facility] Sodium [Moles/Vol] 138 mmol/L 136-145 [facility] WBC (Bld) [#/Vol] 7.4 10*3/uL 4.4-11.0 [facility] Blood erythrocytes count (nu mber/volume)Ordered By: Lizet Linares on 12-22-2022 RBC (Bld) [#/Vol] 3.75 10*6/uL 4.2-5.4 [facility] Blood hemoglobin measurement (mass/volume)Ordered By: Lizet Linares on 12-22-2022 Hemoglobin (Bld) [Mass/Vol] 10.6 g/dL 12.0-15.0 [facility] Blood platelet mean volumeOr dered By: Lizet Linares on 12-22-2022 Platelet mean volume (Bld) [Entitic vol] 9.7 fL 6.2-12.0 [facility] Determination of erythrocyte mean corpuscular volume (MCV)Ordered By: Lizet Linares on 12-22-2022 MCV (RBC) [Entitic vol] 92.0 fL 81-99 [facility] Hematocrit Auto (Bld) [Volum e fraction]Ordered By: Lizet Linares on 12-22-2022 Hematocrit (Bld) [Volume fraction] 34.5 % 37-47 [facility] Laboratory - Chemistry and C hemistry - challengeOrdered By: Lizet Linares on 12-22-2022 CO2 [Moles/Vol] 26.0 mmol/L 21.0-32.0 [facility] Urea nitrogen/Creatinine [Mass ratio] 23.8 mg/mg 10-20 [facility] Laboratory - Hematology and Cell countsOrdered By: Lizet Linares on 12-22-2022 Erythrocyte distribution width (RBC) [Entitic vol] 44.8 fL 35.1-43.9 [facility] Erythrocyte distribution width (RBC) [Ratio] 13.4 % 11.6-14.6 [facility] MCH (RBC) [Entitic mass] 28.3 pg 27.0-32.0 [facility] MCHC Auto (RBC) [Mass/Vol]Or dered By: Lizet Linares on 12-22-2022 MCHC (RBC) [Mass/Vol] 30.7 g/dL 32-36 [facility] No Panel InformationOrdered By: Lizet Linares on 12-22-2022 Estimated GFR (MDRD) Amer 72 mL/min >60 [facility] Comment on above: GFR Calc Estimated GFR (MDRD) Non-Af Amer 60 mL/min >60 [facility] Comment on above: Non- GFR Calc 28.3 pg 27.0-32.0 [facility] 13.4 % 11.6-14.6 [facility] 44.8 fl 35.1-43.9 [facility] 60 mL/min >60 [facility] 72 mL/min >60 [facility] 23.8 RATIO 08-13 [facility] 26.0 mmol/L 21.0-32.0 [facility] Platelets bldOrdered By: Bart Linares on 12-22-2022 Platelets (Bld) [#/Vol] 293 10*3/uL 150-450 [facility] Serum or plasma calcium tai urement (mass/volume)Ordered By: Lizet Linares on 12-22-2022 Calcium [Mass/Vol] 8.8 mg/dL 8.5-10.1 [facility] Serum or plasma creatinine m easurement (mass/volume)Ordered By: Lizet Linares on 12-22-2022 Creatinine [Mass/Vol] 1.01 mg/dL 0.55-1.02 [facility] Comment on above: The validity of the calculated GFR & GFRAA in patients over 70 years has not been determined. Clinical correlation is essential. Serum or plasma urea nitroge n measurement (mass/volume)Ordered By: Lizet Linares on 12-22-2022 Urea nitrogen [Mass/Vol] 24 mg/dL 7-18 [facility] Thin prep Papanicolaou smear with manual screeningOrdered By: Lizet Linares on 12-22-2022 Thin prep Papanicolaou smear with manual screening 8 5-15 [facility] Basophil percentageOrdered B y: Lizet Linares on 12-14-2022 Basophil percentage 170 mg/dL 74-106 [facility] Basophil percentage 139 mmol/L 136-145 [facility] Basophil percentage 4.1 mmol/L 3.5-5.1 [facility] Basophil percentage 104 mmol/L 98-107 [facility] Chloride [Moles/Vol] 104 mmol/L 98-107 [facility] Glucose [Mass/Vol] 170 mg/dL 74-106 [facility] Comment on above: Fasting Glucose resu lt greater than or equal to 126 mg/dL suggests DIABETES MELLITUS per A.D.A. criteria. Potassium [Moles/Vol] 4.1 mmol/L 3.5-5.1 [facility] Sodium [Moles/Vol] 139 mmol/L 136-145 [facility] Laboratory - Chemistry and C hemistry - challengeOrdered By: Lizet Linares on 12-14-2022 CO2 [Moles/Vol] 27.0 mmol/L 21.0-32.0 [facility] Urea nitrogen/Creatinine [Mass ratio] 24.8 mg/mg 10-20 [facility] No Panel InformationOrdered By: Lizet Linares on 12-14-2022 Estimated GFR (MDRD) Amer 72 mL/min >60 [facility] Comment on above: GFR Calc Estimated GFR (MDRD) Non-Af Amer 60 mL/min >60 [facility] Comment on above: Non- GFR Calc 60 mL/min >60 [facility] 72 mL/min >60 [facility] 24.8 RATIO 10-20 [facility] 27.0 mmol/L 21.0-32.0 [facility] Serum or plasma calcium tai urement (mass/volume)Ordered By: Liezt Linares on 12-14-2022 Calcium [Mass/Vol] 9.0 mg/dL 8.5-10.1 [facility] Serum or plasma creatinine m easurement (mass/volume)Ordered By: Lizet Linares on 12-14-2022 Creatinine [Mass/Vol] 1.01 mg/dL 0.55-1.02 [facility] Comment on above: The validity of the calculated GFR & GFRAA in patients over 70 years has not been determined. Clinical correlation is essential. Serum or plasma urea nitroge n measurement (mass/volume)Ordered By: Lizet iLnares on 12-14-2022 Urea nitrogen [Mass/Vol] 25 mg/dL 7-18 [facility] Thin prep Papanicolaou smear with manual screeningOrdered By: christamonterey parknatasha Linares on 12-14-2022 Thin prep Papanicolaou smear with manual screening 8 5-15 [facility] Basophil percentageOrdered B y: Lizet Linares on 12-08-2022 Basophil percentage 107 mg/dL 74-106 [facility] Basophil percentage 141 mmol/L 136-145 [facility] Basophil percentage 4.5 mmol/L 3.5-5.1 [facility] Basophil percentage 108 mmol/L 98-107 [facility] Basophils (Bld) [#/Vol] 6.6 10*3/uL 4.4-11.0 [facility] Chloride [Moles/Vol] 108 mmol/L 98-107 [facility] Glucose [Mass/Vol] 107 mg/dL 74-106 [facility] Comment on above: Fasting Glucose resu lt from 100 to 125 mg/dL suggests IMPAIRED HOMEOSTASIS per A.D.A. criteria. Potassium [Moles/Vol] 4.5 mmol/L 3.5-5.1 [facility] Sodium [Moles/Vol] 141 mmol/L 136-145 [facility] WBC (Bld) [#/Vol] 6.6 10*3/uL 4.4-11.0 [facility] Blood erythrocytes count (nu mber/volume)Ordered By: Lizet Linares on 12-08-2022 RBC (Bld) [#/Vol] 3.93 10*6/uL 4.2-5.4 [facility] Blood hemoglobin measurement (mass/volume)Ordered By: Lizet Linares on 12-08-2022 Hemoglobin (Bld) [Mass/Vol] 11.3 g/dL 12.0-15.0 [facility] Blood platelet mean volumeOr dered By: Lizet Linares on 12-08-2022 Platelet mean volume (Bld) [Entitic vol] 9.7 fL 6.2-12.0 [facility] Determination of erythrocyte mean corpuscular volume (MCV)Ordered By: Lizet Linares on 12-08-2022 MCV (RBC) [Entitic vol] 90.8 fL 81-99 [facility] Hematocrit Auto (Bld) [Volum e fraction]Ordered By: Lizet Linares on 12-08-2022 Hematocrit (Bld) [Volume fraction] 35.7 % 37-47 [facility] Laboratory - Chemistry and C hemistry - challengeOrdered By: Lizet Linares on 12-08-2022 CO2 [Moles/Vol] 25.0 mmol/L 21.0-32.0 [facility] Urea nitrogen/Creatinine [Mass ratio] 26.2 mg/mg 10-20 [facility] Laboratory - Hematology and Cell countsOrdered By: Lizet Linares on 12-08-2022 Erythrocyte distribution width (RBC) [Entitic vol] 45.8 fL 35.1-43.9 [facility] Erythrocyte distribution width (RBC) [Ratio] 13.8 % 11.6-14.6 [facility] MCH (RBC) [Entitic mass] 28.8 [facility].0[facility] [Mass/Vol]Or dered By: Lizet Linares on 12-08-2022 MCHC (RBC) [Mass/Vol] 31.7 g/dL 32-36 [facility] No Panel InformationOrdered By: Lizet Linares on 12-08-2022 Estimated GFR (MDRD) Amer 77 mL/min >60 [facility] Comment on above: GFR Calc Estimated GFR (MDRD) Non-Af Amer 64 mL/min >60 [facility] Comment on above: Non- GFR Calc 28.8 pg 27.0-32.0 [facility] 13.8 % 11.6-14.6 [facility] 45.8 fl 35.1-43.9 [facility] 64 mL/min >60 [facility] 77 mL/min >60 [facility] 26.2 RATIO 10-20 [facility] 25.0 mmol/L 21.0-32.0 [facility] Platelets bldOrdered By: Bart Linares on 12-08-2022 Platelets (Bld) [#/Vol] 287 10*3/uL 150-450 [facility] Serum or plasma calcium tai urement (mass/volume)Ordered By: Lizet Linares on 12-08-2022 Calcium [Mass/Vol] 9.0 mg/dL 8.5-10.1 [facility] Serum or plasma creatinine m easurement (mass/volume)Ordered By: Lizet Linares on 12-08-2022 Creatinine [Mass/Vol] 0.95 mg/dL 0.55-1.02 [facility] Comment on above: The validity of the calculated GFR & GFRAA in patients over 70 years has not been determined. Clinical correlation is essential. Serum or plasma urea nitroge n measurement (mass/volume)Ordered By: Lizet Linares on 12-08-2022 Urea nitrogen [Mass/Vol] 25 mg/dL 7-18 [facility] Thin prep Papanicolaou smear with manual screeningOrdered By: Lizet Linares on 12-08-2022 Thin prep Papanicolaou smear with manual screening 8 5-15 [facility] Basophil percentageOrdered B y: Lizet Linares on 11-24-2022 Basophil percentage 208 mg/dL 74-106 [facility] Basophil percentage 141 mmol/L 136-145 [facility] Basophil percentage 4.2 mmol/L 3.5-5.1 [facility] Basophil percentage 108 mmol/L 98-107 [facility] Basophils (Bld) [#/Vol] 6.2 10*3/uL 4.4-11.0 [facility] Chloride [Moles/Vol] 108 mmol/L 98-107 [facility] Glucose [Mass/Vol] 208 mg/dL 74-106 [facility] Comment on above: Glucose result great er than or equal to 200 mg/dLsuggests DIABETES MELLITUS per A.D.A. criteria. Potassium [Moles/Vol] 4.2 mmol/L 3.5-5.1 [facility] Sodium [Moles/Vol] 141 mmol/L 136-145 [facility] WBC (Bld) [#/Vol] 6.2 10*3/uL 4.4-11.0 [facility] Blood erythrocytes count (nu mber/volume)Ordered By: Lizet Linares on 11-24-2022 RBC (Bld) [#/Vol] 3.94 10*6/uL 4.2-5.4 [facility] Blood hemoglobin measurement (mass/volume)Ordered By: Lizet Linares on 11-24-2022 Hemoglobin (Bld) [Mass/Vol] 11.0 g/dL 12.0-15.0 [facility] Blood platelet mean volumeOr dered By: Lizet Linares on 11-24-2022 Platelet mean volume (Bld) [Entitic vol] 10.0 fL 6.2-12.0 [facility] Determination of erythrocyte mean corpuscular volume (MCV)Ordered By: Lizet Linares on 11-24-2022 MCV (RBC) [Entitic vol] 90.9 fL 81-99 [facility] Hematocrit Auto (Bld) [Volum e fraction]Ordered By: Lizet Linares on 11-24-2022 Hematocrit (Bld) [Volume fraction] 35.8 % 37-47 [facility] Laboratory - Chemistry and C hemistry - challengeOrdered By: Lizet Linares on 11-24-2022 CO2 [Moles/Vol] 26.0 mmol/L 21.0-32.0 [facility] Urea nitrogen/Creatinine [Mass ratio] 17.6 mg/mg 10-20 [facility] Laboratory - Hematology and Cell countsOrdered By: Lizet Linares on 11-24-2022 Erythrocyte distribution width (RBC) [Entitic vol] 46.9 fL 35.1-43.9 [facility] Erythrocyte distribution width (RBC) [Ratio] 14.0 % 11.6-14.6 [facility] MCH (RBC) [Entitic mass] 27.9 pg 27.0-32.0 [facility] MCHC Auto (RBC) [Mass/Vol]Or dered By: Lizet Linares on 11-24-2022 MCHC (RBC) [Mass/Vol] 30.7 g/dL 32-36 [facility] No Panel InformationOrdered By: Lizet Linares on 11-24-2022 Estimated GFR (MDRD) Amer 71 mL/min >60 [facility] Comment on above: GFR Calc Estimated GFR (MDRD) Non-Af Amer 59 mL/min >60 [facility] Comment on above: Non- GFR Calc 27.9 pg 27.0-32.0 [facility] 14.0 % 11.6-14.6 [facility] 46.9 fl 35.1-43.9 [facility] 59 mL/min >60 [facility] 71 mL/min >60 [facility] 17.6 RATIO 10-20 [facility] 26.0 mmol/L 21.0-32.0 [facility] Platelets bldOrdered By: Bart Linares on 11-24-2022 Platelets (Bld) [#/Vol] 270 10*3/uL 150-450 [facility] Serum or plasma calcium tai urement (mass/volume)Ordered By: Lizet Linares on 11-24-2022 Calcium [Mass/Vol] 8.7 mg/dL 8.5-10.1 [facility] Serum or plasma creatinine m easurement (mass/volume)Ordered By: Lizet Linares on 11-24-2022 Creatinine [Mass/Vol] 1.02 mg/dL 0.55-1.02 [facility] Comment on above: The validity of the calculated GFR & GFRAA in patients over 70 years has not been determined. Clinical correlation is essential. Serum or plasma urea nitroge n measurement (mass/volume)Ordered By: Lizet Linares on 11-24-2022 Urea nitrogen [Mass/Vol] 18 mg/dL 7-18 [facility] Thin prep Papanicolaou smear with manual screeningOrdered By: christamonterey parknatasha Linares on 11-24-2022 Thin prep Papanicolaou smear with manual screening 7 5-15 [facility] Basophil percentageOrdered B y: Lizet Linares on 11-10-2022 Basophil percentage 189 mg/dL 74-106 [facility] Basophil percentage 136 mmol/L 136-145 [facility] Basophil percentage 4.4 mmol/L 3.5-5.1 [facility] Basophil percentage 101 mmol/L 98-107 [facility] Basophils (Bld) [#/Vol] 7.5 10*3/uL 4.4-11.0 [facility] Chloride [Moles/Vol] 101 mmol/L 98-107 [facility] Glucose [Mass/Vol] 189 mg/dL 74-106 [facility] Comment on above: Fasting Glucose resu lt greater than or equal to 126 mg/dL suggests DIABETES MELLITUS per A.D.A. criteria. Potassium [Moles/Vol] 4.4 mmol/L 3.5-5.1 [facility] Comment on above: Slight Hemolysis, Re sult may be falsely increased. Sodium [Moles/Vol] 136 mmol/L 136-145 [facility] WBC (Bld) [#/Vol] 7.5 10*3/uL 4.4-11.0 [facility] Blood erythrocytes count (nu mber/volume)Ordered By: Lizet Linares on 11-10-2022 RBC (Bld) [#/Vol] 4.02 10*6/uL 4.2-5.4 [facility] Blood hemoglobin measurement (mass/volume)Ordered By: Lizet Linares on 11-10-2022 Hemoglobin (Bld) [Mass/Vol] 11.6 g/dL 12.0-15.0 [facility] Blood platelet mean volumeOr dered By: Lizet Linares on 11-10-2022 Platelet mean volume (Bld) [Entitic vol] 10.0 fL 6.2-12.0 [facility] Determination of erythrocyte mean corpuscular volume (MCV)Ordered By: Lizet Linares on 11-10-2022 MCV (RBC) [Entitic vol] 88.1 fL 81-99 [facility] Hematocrit Auto (Bld) [Volum e fraction]Ordered By: Lizet Linares on 11-10-2022 Hematocrit (Bld) [Volume fraction] 35.4 % 37-47 [facility] Laboratory - Chemistry and C hemistry - challengeOrdered By: Lizet Linares on 11-10-2022 CO2 [Moles/Vol] 27.0 mmol/L 21.0-32.0 [facility] Urea nitrogen/Creatinine [Mass ratio] 22.6 mg/mg 10-20 [facility] Laboratory - Hematology and Cell countsOrdered By: Lizet Linares on 11-10-2022 Erythrocyte distribution width (RBC) [Entitic vol] 44.0 fL 35.1-43.9 [facility] Erythrocyte distribution width (RBC) [Ratio] 13.6 % 11.6-14.6 [facility] MCH (RBC) [Entitic mass] 28.9 pg 27.0-32.0 [facility] MCHC Auto (RBC) [Mass/Vol]Or dered By: Lizet Linares on 11-10-2022 MCHC (RBC) [Mass/Vol] 32.8 g/dL 32-36 [facility] No Panel InformationOrdered By: Lizet Linares on 11-10-2022 Estimated GFR (MDRD) Amer 68 mL/min >60 [facility] Comment on above: GFR Calc Estimated GFR (MDRD) Non-Af Amer 56 mL/min >60 [facility] Comment on above: Non- GFR Calc 28.9 pg 27.0-32.0 [facility] 13.6 % 11.6-14.6 [facility] 44.0 fl 35.1-43.9 [facility] 56 mL/min >60 [facility] 68 mL/min >60 [facility] 22.6 RATIO 10-20 [facility] 27.0 mmol/L 21.0-32.0 [facility] Platelets bldOrdered By: Bart Linares on 11-10-2022 Platelets (Bld) [#/Vol] 292 10*3/uL 150-450 [facility] Serum or plasma calcium tai urement (mass/volume)Ordered By: Lizet Linares on 11-10-2022 Calcium [Mass/Vol] 8.9 mg/dL 8.5-10.1 [facility] Serum or plasma creatinine m easurement (mass/volume)Ordered By: Lizet Linares on 11-10-2022 Creatinine [Mass/Vol] 1.06 mg/dL 0.55-1.02 [facility] Comment on above: The validity of the calculated GFR & GFRAA in patients over 70 years has not been determined. Clinical correlation is essential. Serum or plasma urea nitroge n measurement (mass/volume)Ordered By: Lizet Linares on 11-10-2022 Urea nitrogen [Mass/Vol] 24 mg/dL 7-18 [facility] Thin prep Papanicolaou smear with manual screeningOrdered By: Lizet Linares on 11-10-2022 Thin prep Papanicolaou smear with manual screening 8 5-15 [facility] Whole blood hemoglobin A1c/t otal hemoglobin ratio (mass fraction)Ordered By: Lizet Linares on 11-10-2022 HbA1c (Bld) [Mass fraction] 11.3 % 3.8-5.6 [facility] Comment on above: Normal < 5.7 % Predi abetic 5.7 - 6.4 % Diabetic >or= 6.5 % Please note range changes. Absolute lymphocyte countOrd ered By: Dr. Camp on 11-05-2022 Lymphocytes Auto (Unsp spec) [#/Vol] 4.02 10*3/uL 0.83-4.51 [facility] Basophil percentageOrdered B y: Dr. Camp on 11-05-2022 Basophil percentage 441 mg/dL 74-106 [facility] Basophil percentage 133 mmol/L 136-145 [facility] Basophil percentage 4.7 mmol/L 3.5-5.1 [facility] Basophil percentage 99 mmol/L 98-107 [facility] Basophils (Bld) [#/Vol] 9.1 10*3/uL 4.4-11.0 [facility] Basophils (Bld) [#/Vol] 4.4 10*3/uL 2.0-7.7 [facility] Basophils/100 WBC (Bld) 0.8 % 0-1 [facility] Basophils/100 WBC (Bld) 48.7 % 47-70 [facility] Basophils/100 WBC (Bld) 1.7 % 0-5 [facility] Chloride [Moles/Vol] 99 mmol/L 98-107 [facility] Eosinophils/100 WBC (Bld) 1.7 % 0-5 [facility] Glucose [Mass/Vol] 441 mg/dL 74-106 [facility] Comment on above: Glucose result great er than or equal to 200 mg/dLsuggests DIABETES MELLITUS per A.D.A. criteria. Neutrophils (Bld) [#/Vol] 4.4 10*3/uL 2.0-7.7 [facility] Neutrophils/100 WBC (Bld) 48.7 % 47-70 [facility] Potassium [Moles/Vol] 4.7 mmol/L 3.5-5.1 [facility] Sodium [Moles/Vol] 133 mmol/L 136-145 [facility] WBC (Bld) [#/Vol] 9.1 10*3/uL 4.4-11.0 [facility] Blood erythrocytes count (nu mber/volume)Ordered By: Dr. Camp on 11-05-2022 RBC (Bld) [#/Vol] 4.28 10*6/uL 4.2-5.4 [facility] Blood hemoglobin measurement (mass/volume)Ordered By: Dr. Camp on 11-05-2022 Hemoglobin (Bld) [Mass/Vol] 12.1 g/dL 12.0-15.0 [facility] Blood lymphocytes/100 leukoc ytesOrdered By: Dr. Camp on 11-05-2022 Lymphocytes/100 WBC (Bld) 44.2 % 19-41 [facility] Blood monocytes/100 leukocyt esOrdered By: Dr. Camp on 11-05-2022 Monocytes/100 WBC (Bld) 4.2 % 0-10 [facility] Blood platelet mean volumeOr dered By: Dr. Camp on 11-05-2022 Platelet mean volume (Bld) [Entitic vol] 9.7 fL 6.2-12.0 [facility] Determination of erythrocyte mean corpuscular volume (MCV)Ordered By: Dr. Camp on 11-05-2022 MCV (RBC) [Entitic vol] 86.0 fL 81-99 [facility] Hematocrit Auto (Bld) [Volum e fraction]Ordered By: Dr. Camp on 11-05-2022 Hematocrit (Bld) [Volume fraction] 36.8 % 37-47 [facility] Laboratory - Chemistry and C hemistry - challengeOrdered By: Dr. Camp on 11-05-2022 CO2 [Moles/Vol] 27.0 mmol/L 21.0-32.0 [facility] Urea nitrogen/Creatinine [Mass ratio] 18.8 mg/mg 10-20 [facility] Laboratory - Hematology and Cell countsOrdered By: Dr. Camp on 11-05-2022 Erythrocyte distribution width (RBC) [Entitic vol] 42.0 fL 35.1-43.9 [facility] Erythrocyte distribution width (RBC) [Ratio] 13.3 % 11.6-14.6 [facility] Immature granulocytes/100 WBC (Bld) 0.400 % 0.0-0.9 [facility] Comment on above: IG% - Immature Granu locytes (promyelocytes, myelocytes and metamyelocytes) > 1% indicates that a LEFT SHIFT is Present. MCH (RBC) [Entitic mass] 28.3 pg 27.0-32.0 [facility] Nucleated RBC/100 WBC (Bld) [Ratio] 0.2 % 0-5 [facility] Auto (RBC) [Mass/Vol]Or dered By: Dr. Camp on 11-05-2022 MCHC (RBC) [Mass/Vol] 32.9 g/dL 32-36 [facility] No Panel InformationOrdered By: Dr. Camp on 11-05-2022 Troponin I High Sensitivity 8 pg/mL 3.0-54.0 [facility] Comment on above: Please Note: New Carolann t Units and Gender Specific Reference Ranges. For more information see Policy Stat Procedure [place] High Sensitivity Troponin (TNIH) and attachments. 8 pg/mL 3.0-54.0 [facility] Estimated Creatinine Clearance Calc 33.99 ml/min [facility] Estimated GFR (MDRD) Amer 55 mL/min >60 [facility] Comment on above: GFR Calc Estimated GFR (MDRD) Non-Af Amer 45 mL/min >60 [facility] Comment on above: Non- GFR Calc 28.3 pg 27.0-32.0 [facility] 13.3 % 11.6-14.6 [facility] 42.0 fl 35.1-43.9 [facility] 0.400 % 0.0-0.9 [facility] 0.2 % 0-5 [facility] 45 mL/min >60 [facility] 55 mL/min >60 [facility] 33.99 ml/min [facility] 18.8 RATIO 10-20 [facility] 27.0 mmol/L 21.0-32.0 [facility] Platelets bldOrdered By: Dr. Camp on 11-05-2022 Platelets (Bld) [#/Vol] 290 10*3/uL 150-450 [facility] Serum or plasma calcium tai urement (mass/volume)Ordered By: Dr. Camp on 11-05-2022 Calcium [Mass/Vol] 9.5 mg/dL 8.5-10.1 [facility] Serum or plasma creatinine m easurement (mass/volume)Ordered By: Dr. Camp on 11-05-2022 Creatinine [Mass/Vol] 1.28 mg/dL 0.55-1.02 [facility] Comment on above: The validity of the calculated GFR & GFRAA in patients over 70 years has not been determined. Clinical correlation is essential. Serum or plasma urea nitroge n measurement (mass/volume)Ordered By: Dr. Camp on 11-05-2022 Urea nitrogen [Mass/Vol] 24 mg/dL 7-18 [facility] Thin prep Papanicolaou smear with manual screeningOrdered By: Dr. Camp on 11-05-2022 Thin prep Papanicolaou smear with manual screening 7 5-15 [facility] Basophil percentageOrdered B y: Lizet Linares on 10-30-2022 Basophil percentage 359 mg/dL 74-106 [facility] Basophil percentage 134 mmol/L 136-145 [facility] Basophil percentage 4.2 mmol/L 3.5-5.1 [facility] Basophil percentage 100 mmol/L 98-107 [facility] Chloride [Moles/Vol] 100 mmol/L 98-107 [facility] Glucose [Mass/Vol] 359 mg/dL 74-106 [facility] Comment on above: Glucose result great er than or equal to 200 mg/dLsuggests DIABETES MELLITUS per A.D.A. criteria. Potassium [Moles/Vol] 4.2 mmol/L 3.5-5.1 [facility] Sodium [Moles/Vol] 134 mmol/L 136-145 [facility] Laboratory - Chemistry and C hemistry - challengeOrdered By: Lizet Linares on 10-30-2022 CO2 [Moles/Vol] 28.0 mmol/L 21.0-32.0 [facility] Urea nitrogen/Creatinine [Mass ratio] 23.1 mg/mg 08-13 [facility] No Panel InformationOrdered By: Lizet Linares on 10-30-2022 Estimated GFR (MDRD) Amer 54 mL/min >60 [facility] Comment on above: GFR Calc Estimated GFR (MDRD) Non-Af Amer 45 mL/min >60 [facility] Comment on above: Non- GFR Calc 45 mL/min >60 [facility] 54 mL/min >60 [facility] 23.1 RATIO - [facility] 28.0 mmol/L 21.0-32.0 [facility] Serum or plasma calcium tai urement (mass/volume)Ordered By: Lizet Linares on 10-30-2022 Calcium [Mass/Vol] 8.9 mg/dL 8.5-10.1 [facility] Serum or plasma creatinine m easurement (mass/volume)Ordered By: Lizet Linares on 10-30-2022 Creatinine [Mass/Vol] 1.30 mg/dL 0.55-1.02 [facility] Comment on above: The validity of the calculated GFR & GFRAA in patients over 70 years has not been determined. Clinical correlation is essential. Serum or plasma urea nitroge n measurement (mass/volume)Ordered By: Lizet Linares on 10-30-2022 Urea nitrogen [Mass/Vol] 30 mg/dL 7-18 [facility] Thin prep Papanicolaou smear with manual screeningOrdered By: Lizet Linares on 10-30-2022 Thin prep Papanicolaou smear with manual screening 6 5-15 [facility] Basophil percentageOrdered B y: Lizet Linares on 10-27-2022 Basophil percentage 295 mg/dL 74-106 [facility] Basophil percentage 134 mmol/L 136-145 [facility] Basophil percentage 4.3 mmol/L 3.5-5.1 [facility] Basophil percentage 100 mmol/L 98-107 [facility] Basophils (Bld) [#/Vol] 7.7 10*3/uL 4.4-11.0 [facility] Chloride [Moles/Vol] 100 mmol/L 98-107 [facility] Glucose [Mass/Vol] 295 mg/dL 74-106 [facility] Comment on above: Glucose result great er than or equal to 200 mg/dLsuggests DIABETES MELLITUS per A.D.A. criteria. Potassium [Moles/Vol] 4.3 mmol/L 3.5-5.1 [facility] Sodium [Moles/Vol] 134 mmol/L 136-145 [facility] WBC (Bld) [#/Vol] 7.7 10*3/uL 4.4-11.0 [facility] Blood erythrocytes count (nu mber/volume)Ordered By: Lizet Linares on 10-27-2022 RBC (Bld) [#/Vol] 4.02 10*6/uL 4.2-5.4 [facility] Blood hemoglobin measurement (mass/volume)Ordered By: Lizet Linares on 10-27-2022 Hemoglobin (Bld) [Mass/Vol] 11.4 g/dL 12.0-15.0 [facility] Blood platelet mean volumeOr dered By: Lizet Linares on 10-27-2022 Platelet mean volume (Bld) [Entitic vol] 10.4 fL 6.2-12.0 [facility] Determination of erythrocyte mean corpuscular volume (MCV)Ordered By: Lizet Linares on 10-27-2022 MCV (RBC) [Entitic vol] 88.1 fL 81-99 [facility] Hematocrit Auto (Bld) [Volum e fraction]Ordered By: Lizet Linares on 10-27-2022 Hematocrit (Bld) [Volume fraction] 35.4 % 37-47 [facility] Laboratory - Chemistry and C hemistry - challengeOrdered By: Lizet Linares on 10-27-2022 CO2 [Moles/Vol] 29.0 mmol/L 21.0-32.0 [facility] Urea nitrogen/Creatinine [Mass ratio] 24.8 mg/mg 10-20 [facility] Laboratory - Hematology and Cell countsOrdered By: Lizet Linares on 10-27-2022 Erythrocyte distribution width (RBC) [Entitic vol] 44.1 fL 35.1-43.9 [facility] Erythrocyte distribution width (RBC) [Ratio] 13.7 % 11.6-14.6 [facility] MCH (RBC) [Entitic mass] 28.4 pg 27.0-32.0 [facility] MCHC Auto (RBC) [Mass/Vol]Or dered By: Lizet Linares on 10-27-2022 MCHC (RBC) [Mass/Vol] 32.2 g/dL 32-36 [facility] No Panel InformationOrdered By: Lizet Linares on 10-27-2022 Estimated GFR (MDRD) Amer 61 mL/min >60 [facility] Comment on above: GFR Calc Estimated GFR (MDRD) Non-Af Amer 50 mL/min >60 [facility] Comment on above: Non- GFR Calc 28.4 pg 27.0-32.0 [facility] 13.7 % 11.6-14.6 [facility] 44.1 fl 35.1-43.9 [facility] 50 mL/min >60 [facility] 61 mL/min >60 [facility] 24.8 RATIO 10-20 [facility] 29.0 mmol/L 21.0-32.0 [facility] Platelets bldOrdered By: Bart Linares on 10-27-2022 Platelets (Bld) [#/Vol] 299 10*3/uL 150-450 [facility] Serum or plasma calcium tai urement (mass/volume)Ordered By: Lizet Linares on 10-27-2022 Calcium [Mass/Vol] 9.0 mg/dL 8.5-10.1 [facility] Serum or plasma creatinine m easurement (mass/volume)Ordered By: Lizet Linares on 10-27-2022 Creatinine [Mass/Vol] 1.17 mg/dL 0.55-1.02 [facility] Comment on above: The validity of the calculated GFR & GFRAA in patients over 70 years has not been determined. Clinical correlation is essential. Serum or plasma urea nitroge n measurement (mass/volume)Ordered By: Lizet Linares on 10-27-2022 Urea nitrogen [Mass/Vol] 29 mg/dL 7-18 [facility] Thin prep Papanicolaou smear with manual screeningOrdered By: Lizet Linares on 10-27-2022 Thin prep Papanicolaou smear with manual screening 5 5-15 [facility] Basophil percentageOrdered B y: Lizet Linares on 10-13-2022 Basophil percentage 332 mg/dL 74-106 [facility] Basophil percentage 134 mmol/L 136-145 [facility] Basophil percentage 4.4 mmol/L 3.5-5.1 [facility] Basophil percentage 96 mmol/L 98-107 [facility] Basophils (Bld) [#/Vol] 6.8 10*3/uL 4.4-11.0 [facility] Chloride [Moles/Vol] 96 mmol/L 98-107 [facility] Glucose [Mass/Vol] 332 mg/dL 74-106 [facility] Comment on above: Glucose result great er than or equal to 200 mg/dLsuggests DIABETES MELLITUS per A.D.A. criteria. Potassium [Moles/Vol] 4.4 mmol/L 3.5-5.1 [facility] Sodium [Moles/Vol] 134 mmol/L 136-145 [facility] WBC (Bld) [#/Vol] 6.8 10*3/uL 4.4-11.0 [facility] Blood erythrocytes count (nu mber/volume)Ordered By: Lizet Linares on 10-13-2022 RBC (Bld) [#/Vol] 4.15 10*6/uL 4.2-5.4 [facility] Blood hemoglobin measurement (mass/volume)Ordered By: Lizet Linares on 10-13-2022 Hemoglobin (Bld) [Mass/Vol] 11.8 g/dL 12.0-15.0 [facility] Blood platelet mean volumeOr dered By: Lizet Linares on 10-13-2022 Platelet mean volume (Bld) [Entitic vol] 10.0 fL 6.2-12.0 [facility] Determination of erythrocyte mean corpuscular volume (MCV)Ordered By: Lizet Linares on 10-13-2022 MCV (RBC) [Entitic vol] 87.5 fL 81-99 [facility] Hematocrit Auto (Bld) [Volum e fraction]Ordered By: Lizet Linares on 10-13-2022 Hematocrit (Bld) [Volume fraction] 36.3 % 37-47 [facility] Laboratory - Chemistry and C hemistry - challengeOrdered By: Lizet Linares on 10-13-2022 CO2 [Moles/Vol] 29.0 mmol/L 21.0-32.0 [facility] Urea nitrogen/Creatinine [Mass ratio] 15.2 mg/mg -20 [facility] Laboratory - Hematology and Cell countsOrdered By: Lizet Linares on 10-13-2022 Erythrocyte distribution width (RBC) [Entitic vol] 43.6 fL 35.1-43.9 [facility] Erythrocyte distribution width (RBC) [Ratio] 13.5 % 11.6-14.6 [facility] MCH (RBC) [Entitic mass] 28.4 pg 27.0-32.0 [facility] MCHC Auto (RBC) [Mass/Vol]Or dered By: Lizet Linares on 10-13-2022 MCHC (RBC) [Mass/Vol] 32.5 g/dL 32-36 [facility] No Panel InformationOrdered By: Lizet Linares on 10-13-2022 Estimated GFR (MDRD) Amer 50 mL/min >60 [facility] Comment on above: GFR Calc Estimated GFR (MDRD) Non-Af Amer 42 mL/min >60 [facility] Comment on above: Non- GFR Calc 28.4 pg 27.0-32.0 [facility] 13.5 % 11.6-14.6 [facility] 43.6 fl 35.1-43.9 [facility] 42 mL/min >60 [facility] 50 mL/min >60 [facility] 15.2 RATIO 10-20 [facility] 29.0 mmol/L 21.0-32.0 [facility] Platelets bldOrdered By: Bart Linares on 10-13-2022 Platelets (Bld) [#/Vol] 274 10*3/uL 150-450 [facility] Serum or plasma calcium tai urement (mass/volume)Ordered By: Lizet Linares on 10-13-2022 Calcium [Mass/Vol] 9.0 mg/dL 8.5-10.1 [facility] Serum or plasma creatinine m easurement (mass/volume)Ordered By: Lizet Linares on 10-13-2022 Creatinine [Mass/Vol] 1.38 mg/dL 0.55-1.02 [facility] Comment on above: The validity of the calculated GFR & GFRAA in patients over 70 years has not been determined. Clinical correlation is essential. Serum or plasma urea nitroge n measurement (mass/volume)Ordered By: Lizet Linares on 10-13-2022 Urea nitrogen [Mass/Vol] 21 mg/dL 7-18 [facility] Thin prep Papanicolaou smear with manual screeningOrdered By: Lizet Linares on 10-13-2022 Thin prep Papanicolaou smear with manual screening 9 5-15 [facility] Culture, urineOrdered By: Rae Hamilton on 10-11-2022 Bacteria identified Cx Nom (U) Culture exhibits no growth. [facility] Absolute lymphocyte countOrd ered By: Tip Hamilton on 10-09-2022 Lymphocytes Auto (Unsp spec) [#/Vol] 4.14 10*3/uL 0.83-4.51 [facility] Basophil percentageOrdered B y: Tip Hamilton on 10-09-2022 Basophil percentage 25-50 SEEN /hpf 0-5 [facility] Basophil percentage 272 mg/dL 74-106 [facility] Basophil percentage 6.9 g/dL 6.4-8.2 [facility] Basophil percentage 0.30 mg/dL 0.20-1.00 [facility] Basophil percentage 134 mmol/L 136-145 [facility] Basophil percentage 4.8 mmol/L 3.5-5.1 [facility] Basophil percentage 100 mmol/L 98-107 [facility] Basophils (Bld) [#/Vol] 9.9 10*3/uL 4.4-11.0 [facility] Basophils (Bld) [#/Vol] 5.0 10*3/uL 2.0-7.7 [facility] Basophils/100 WBC (Bld) 0.7 % 0-1 [facility] Basophils/100 WBC (Bld) 50.3 % 47-70 [facility] Basophils/100 WBC (Bld) 1.3 % 0-5 [facility] Bilirubin [Mass/Vol] 0.30 mg/dL 0.20-1.00 [facility] Comment on above: For patients on eltr ombopag therapy, use of Dimension [place] TBIL is not recommended. Chloride [Moles/Vol] 100 mmol/L 98-107 [facility] Eosinophils/100 WBC (Bld) 1.3 % 0-5 [facility] Glucose [Mass/Vol] 272 mg/dL 74-106 [facility] Comment on above: Glucose result great er than or equal to 200 mg/dLsuggests DIABETES MELLITUS per A.D.A. criteria. Neutrophils (Bld) [#/Vol] 5.0 10*3/uL 2.0-7.7 [facility] Neutrophils/100 WBC (Bld) 50.3 % 47-70 [facility] Potassium [Moles/Vol] 4.8 mmol/L 3.5-5.1 [facility] Protein [Mass/Vol] 6.9 g/dL 6.4-8.2 [facility] Sodium [Moles/Vol] 134 mmol/L 136-145 [facility] WBC (Bld) [#/Vol] 9.9 10*3/uL 4.4-11.0 [facility] Bilirubin Test strip Ql (U)O rdered By: Tip Hamilton on 10-09-2022 Bilirubin Ql (U) Negative Negative [facility] Blood erythrocytes count (nu mber/volume)Ordered By: Tip Hamilton on 10-09-2022 RBC (Bld) [#/Vol] 4.11 10*6/uL 4.2-5.4 [facility] Blood hemoglobin measurement (mass/volume)Ordered By: Tip Hamilton on 10-09-2022 Hemoglobin (Bld) [Mass/Vol] 11.5 g/dL 12.0-15.0 [facility] Blood lymphocytes/100 leukoc ytesOrdered By: Tip Hamilton on 10-09-2022 Lymphocytes/100 WBC (Bld) 41.9 % 19-41 [facility] Blood monocytes/100 leukocyt esOrdered By: Tip Hamilton on 10-09-2022 Monocytes/100 WBC (Bld) 5.5 % 0-10 [facility] Blood platelet mean volumeOr dered By: Tip Hamilton on 10-09-2022 Platelet mean volume (Bld) [Entitic vol] 9.8 fL 6.2-12.0 [facility] Determination of erythrocyte mean corpuscular volume (MCV)Ordered By: Tip Hamilton on 10-09-2022 MCV (RBC) [Entitic vol] 86.9 fL 81-99 [facility] Direct bilirubinOrdered By: Tip Hamilton on 10-09-2022 Bilirubin.direct [Mass/Vol] 0.11 mg/dL 0.00-0.30 [facility] Hematocrit Auto (Bld) [Volum e fraction]Ordered By: Tip Hamilton on 10-09-2022 Hematocrit (Bld) [Volume fraction] 35.7 % 37-47 [facility] Ketones Test strip Ql (U)Ord ered By: Tip Hamilton on 10-09-2022 Ketones Ql (U) Negative Negative [facility] Laboratory - Chemistry and C hemistry - challengeOrdered By: Tip Hamilton on 10-09-2022 ALP [Catalytic activity/Vol] 69 U/L 45-117 [facility] ALT [Catalytic activity/Vol] 25 U/L 13-56 [facility] CO2 [Moles/Vol] 29.0 mmol/L 21.0-32.0 [facility] Globulin (S) [Mass/Vol] 3.8 g/dL 2.2-4.2 [facility] Lipase [Catalytic activity/Vol] 89 U/L 73-393 [facility] Urea nitrogen/Creatinine [Mass ratio] 21.0 mg/mg 10-20 [facility] Laboratory - Hematology and Cell countsOrdered By: Tip Hamilton on 10-09-2022 Erythrocyte distribution width (RBC) [Entitic vol] 44.0 fL 35.1-43.9 [facility] Erythrocyte distribution width (RBC) [Ratio] 13.9 % 11.6-14.6 [facility] Immature granulocytes/100 WBC (Bld) 0.300 % 0.0-0.9 [facility] Comment on above: IG% - Immature Granu locytes (promyelocytes, myelocytes and metamyelocytes) > 1% indicates that a LEFT SHIFT is Present. MCH (RBC) [Entitic mass] 28.0 pg 27.0-32.0 [facility] Nucleated RBC/100 WBC (Bld) [Ratio] 0 % 0-5 [facility] MCHC Auto (RBC) [Mass/Vol]Or dered By: Tip Hamilton on 10-09-2022 MCHC (RBC) [Mass/Vol] 32.2 g/dL 32-36 [facility] Mucus LM Ql (Urine sed)Order ed By: Tip Hamilton on 10-09-2022 Mucus Ql (Urine sed) 0 SEEN /hpf [facility] Nitrite Test strip Ql (U)Ord ered By: Tip Hamilton on 10-09-2022 Nitrite Ql (U) Negative Negative [facility] No Panel InformationOrdered By: Tip Hamilton on 10-09-2022 Estimated Creatinine Clearance Calc 35.09 ml/min [facility] Estimated GFR (MDRD) Amer 57 mL/min >60 [facility] Comment on above: GFR Calc Estimated GFR (MDRD) Non-Af Amer 47 mL/min >60 [facility] Comment on above: Non- GFR Calc 28.0 pg 27.0-32.0 [facility] 13.9 % 11.6-14.6 [facility] 44.0 fl 35.1-43.9 [facility] 0.300 % 0.0-0.9 [facility] 0 % 0-5 [facility] 47 mL/min >60 [facility] 57 mL/min >60 [facility] 35.09 ml/min [facility] 21.0 RATIO 10-20 [facility] 3.8 g/dL 2.2-4.2 [facility] 89 U/L 73-393 [facility] 69 U/L 45-117 [facility] 25 U/L 13-56 [facility] 29.0 mmol/L 21.0-32.0 [facility] Platelets bldOrdered By: Kali Hamilton on 10-09-2022 Platelets (Bld) [#/Vol] 286 10*3/uL 150-450 [facility] Protein Test strip Ql (U)Ord ered By: Tip Hamilton on 10-09-2022 Protein Ql (U) 15 mg/dl Negative [facility] Serum or plasma albumin tai urement (mass/volume)Ordered By: Tip Hamilton on 10-09-2022 Albumin [Mass/Vol] 3.1 g/dL 3.2-5.0 [facility] Serum or plasma calcium tai urement (mass/volume)Ordered By: Tip Hamilton on 10-09-2022 Calcium [Mass/Vol] 8.8 mg/dL 8.5-10.1 [facility] Serum or plasma creatinine m easurement (mass/volume)Ordered By: Tip Hamilton on 10-09-2022 Creatinine [Mass/Vol] 1.24 mg/dL 0.55-1.02 [facility] Comment on above: The validity of the calculated GFR & GFRAA in patients over 70 years has not been determined. Clinical correlation is essential. Serum or plasma urea nitroge n measurement (mass/volume)Ordered By: Tip Hamilton on 10-09-2022 Urea nitrogen [Mass/Vol] 26 mg/dL 7-18 [facility] Squamous epithelial cells de tection in urine sediment by light microscopyOrdered By: Tip Hamilton on 10-09-2022 Epithelial cells.squamous LM Ql (Urine sed) 0-5 SEEN /hpf 5-10 [facility] Thin prep Papanicolaou smear with manual screeningOrdered By: Tip Hamilton on 10-09-2022 Thin prep Papanicolaou smear with manual screening 17 U/L 15-37 [facility] Thin prep Papanicolaou smear with manual screening 5 5-15 [facility] Urine blood detectionOrdered By: Tip Hamilton on 10-09-2022 RBC Ql (U) 10 /ul Negative [facility] RBC Ql (U) 0 SEEN /hpf 0-5 [facility] Urine clarityOrdered By: Kali Hamilton on 10-09-2022 Clarity (U) Sl. Cloudy Clear [facility] Urine color determinationOrd ered By: Tip Hamilton on 10-09-2022 Color (U) Yellow [facility] Urine glucose detectionOrder ed By: Tip Hamilton on 10-09-2022 Glucose Ql (U) 100 mg/dl Normal [facility] Urine leukocyte esterase det ection by dipstickOrdered By: Tip Hamilton on 10-09-2022 Leukocyte esterase Test strip Ql (U) 500 /ul Negative [facility] Urine pHOrdered By: Tip gonzalez on 10-09-2022 pH (U) 6.5 [pH] 5.0 - 8.0 [facility] Urine sediment bacteria coun t by microscopy (number/high power field)Ordered By: Tip Hamilton on 10-09-2022 Bacteria LM.HPF (Urine sed) [#/Area] 4 /[HPF] None Seen [facility] Urine specific gravity measu rementOrdered By: Tip Hamilton on 10-09-2022 Specific gravity (U) [Rel density] 1.010 1.002-1.03 0 [facility] Urobilinogen Auto test strip Ql (U)Ordered By: Tip Hamilton on 10-09-2022 Urobilinogen Ql (U) Normal mg/dl Normal [facility] Basophil percentageOrdered B y: Ganesh Garcia on 09-29-2022 Basophil percentage 426 mg/dL 74-106 [facility] Basophil percentage 132 mmol/L 136-145 [facility] Basophil percentage 4.1 mmol/L 3.5-5.1 [facility] Basophil percentage 98 mmol/L 98-107 [facility] Basophils (Bld) [#/Vol] 6.8 10*3/uL 4.4-11.0 [facility] Chloride [Moles/Vol] 98 mmol/L 98-107 [facility] Glucose [Mass/Vol] 426 mg/dL 74-106 [facility] Comment on above: Glucose result great er than or equal to 200 mg/dLsuggests DIABETES MELLITUS per A.D.A. criteria. Potassium [Moles/Vol] 4.1 mmol/L 3.5-5.1 [facility] Sodium [Moles/Vol] 132 mmol/L 136-145 [facility] WBC (Bld) [#/Vol] 6.8 10*3/uL 4.4-11.0 [facility] Blood erythrocytes count (nu mber/volume)Ordered By: Ganesh Garcia on 09-29-2022 RBC (Bld) [#/Vol] 4.11 10*6/uL 4.2-5.4 [facility] Blood hemoglobin measurement (mass/volume)Ordered By: Ganesh Garcia on 09-29-2022 Hemoglobin (Bld) [Mass/Vol] 11.5 g/dL 12.0-15.0 [facility] Blood platelet mean volumeOr dered By: Ganesh Garcia on 09-29-2022 Platelet mean volume (Bld) [Entitic vol] 10.2 fL 6.2-12.0 [facility] Determination of erythrocyte mean corpuscular volume (MCV)Ordered By: Ganesh Garcia on 09-29-2022 MCV (RBC) [Entitic vol] 85.9 fL 81-99 [facility] Hematocrit Auto (Bld) [Volum e fraction]Ordered By: Ganesh Garcia on 09-29-2022 Hematocrit (Bld) [Volume fraction] 35.3 % 37-47 [facility] Laboratory - Chemistry and C hemistry - challengeOrdered By: Ganesh Garcia on 09-29-2022 CO2 [Moles/Vol] 27.0 mmol/L 21.0-32.0 [facility] Urea nitrogen/Creatinine [Mass ratio] 21.9 mg/mg 10-20 [facility] Laboratory - Hematology and Cell countsOrdered By: Ganesh Garcia on 09-29-2022 Erythrocyte distribution width (RBC) [Entitic vol] 42.8 fL 35.1-43.9 [facility] Erythrocyte distribution width (RBC) [Ratio] 13.8 % 11.6-14.6 [facility] MCH (RBC) [Entitic mass] 28.0 pg 27.0-32.0 [facility] MCHC Auto (RBC) [Mass/Vol]Or dered By: Ganesh Garcia on 09-29-2022 MCHC (RBC) [Mass/Vol] 32.6 g/dL 32-36 [facility] No Panel InformationOrdered By: Ganesh Garcia on 09-29-2022 Estimated GFR (MDRD) Amer 63 mL/min >60 [facility] Comment on above: GFR Calc Estimated GFR (MDRD) Non-Af Amer 52 mL/min >60 [facility] Comment on above: Non- GFR Calc 28.0 pg 27.0-32.0 [facility] 13.8 % 11.6-14.6 [facility] 42.8 fl 35.1-43.9 [facility] 52 mL/min >60 [facility] 63 mL/min >60 [facility] 21.9 RATIO 10- [facility] 27.0 mmol/L 21.0-32.0 [facility] Platelets bldOrdered By: Robert Garcia on 09-29-2022 Platelets (Bld) [#/Vol] 289 10*3/uL 150-450 [facility] Serum or plasma calcium tai urement (mass/volume)Ordered By: Ganesh Garcia on 09-29-2022 Calcium [Mass/Vol] 9.0 mg/dL 8.5-10.1 [facility] Serum or plasma creatinine m easurement (mass/volume)Ordered By: Ganesh Garcia on 09-29-2022 Creatinine [Mass/Vol] 1.14 mg/dL 0.55-1.02 [facility] Comment on above: The validity of the calculated GFR & GFRAA in patients over 70 years has not been determined. Clinical correlation is essential. Serum or plasma urea nitroge n measurement (mass/volume)Ordered By: Ganesh Garcia on 09-29-2022 Urea nitrogen [Mass/Vol] 25 mg/dL 7-18 [facility] Thin prep Papanicolaou smear with manual screeningOrdered By: Ganesh Garcia on 09-29-2022 Thin prep Papanicolaou smear with manual screening 7 5-15 [facility] Basophil percentageOrdered B y: Ganesh Garcia on 09-15-2022 Basophil percentage 258 mg/dL 74-106 [facility] Basophil percentage 134 mmol/L 136-145 [facility] Basophil percentage 4.1 mmol/L 3.5-5.1 [facility] Basophil percentage 99 mmol/L 98-107 [facility] Basophils (Bld) [#/Vol] 7.0 10*3/uL 4.4-11.0 [facility] Chloride [Moles/Vol] 99 mmol/L 98-107 [facility] Glucose [Mass/Vol] 258 mg/dL 74-106 [facility] Comment on above: Glucose result great er than or equal to 200 mg/dLsuggests DIABETES MELLITUS per A.D.A. criteria. Potassium [Moles/Vol] 4.1 mmol/L 3.5-5.1 [facility] Sodium [Moles/Vol] 134 mmol/L 136-145 [facility] WBC (Bld) [#/Vol] 7.0 10*3/uL 4.4-11.0 [facility] Blood erythrocytes count (nu mber/volume)Ordered By: Ganesh Garcia on 09-15-2022 RBC (Bld) [#/Vol] 3.71 10*6/uL 4.2-5.4 [facility] Blood hemoglobin measurement (mass/volume)Ordered By: Ganesh Garcia on 09-15-2022 Hemoglobin (Bld) [Mass/Vol] 10.6 g/dL 12.0-15.0 [facility] Blood platelet mean volumeOr dered By: Ganesh Garcia on 09-15-2022 Platelet mean volume (Bld) [Entitic vol] 10.1 fL 6.2-12.0 [facility] Determination of erythrocyte mean corpuscular volume (MCV)Ordered By: Ganesh Garcia on 09-15-2022 MCV (RBC) [Entitic vol] 84.9 fL 81-99 [facility] Hematocrit Auto (Bld) [Volum e fraction]Ordered By: Ganesh Garcia on 09-15-2022 Hematocrit (Bld) [Volume fraction] 31.5 % 37-47 [facility] Laboratory - Chemistry and C hemistry - challengeOrdered By: Ganesh Garcia on 09-15-2022 CO2 [Moles/Vol] 26.0 mmol/L 21.0-32.0 [facility] Urea nitrogen/Creatinine [Mass ratio] 22.8 mg/mg 10-20 [facility] Laboratory - Hematology and Cell countsOrdered By: Ganesh Garcia on 09-15-2022 Erythrocyte distribution width (RBC) [Entitic vol] 43.3 fL 35.1-43.9 [facility] Erythrocyte distribution width (RBC) [Ratio] 14.0 % 11.6-14.6 [facility] MCH (RBC) [Entitic mass] 28.6 pg 27.0-32.0 [facility] MCHC Auto (RBC) [Mass/Vol]Or dered By: Ganesh Garcia on 09-15-2022 MCHC (RBC) [Mass/Vol] 33.7 g/dL 32-36 [facility] No Panel InformationOrdered By: Ganesh Garcia on 09-15-2022 Estimated GFR (MDRD) Amer 72 mL/min >60 [facility] Comment on above: GFR Calc Estimated GFR (MDRD) Non-Af Amer 60 mL/min >60 [facility] Comment on above: Non- GFR Calc 28.6 pg 27.0-32.0 [facility] 14.0 % 11.6-14.6 [facility] 43.3 fl 35.1-43.9 [facility] 60 mL/min >60 [facility] 72 mL/min >60 [facility] 22.8 RATIO 10-20 [facility] 26.0 mmol/L 21.0-32.0 [facility] Platelets bldOrdered By: Robert Garcia on 09-15-2022 Platelets (Bld) [#/Vol] 258 10*3/uL 150-450 [facility] Serum or plasma calcium tai urement (mass/volume)Ordered By: Ganesh Garcia on 09-15-2022 Calcium [Mass/Vol] 8.6 mg/dL 8.5-10.1 [facility] Serum or plasma creatinine m easurement (mass/volume)Ordered By: Ganesh Garcia on 09-15-2022 Creatinine [Mass/Vol] 1.01 mg/dL 0.55-1.02 [facility] Comment on above: The validity of the calculated GFR & GFRAA in patients over 70 years has not been determined. Clinical correlation is essential. Serum or plasma urea nitroge n measurement (mass/volume)Ordered By: Ganesh Garcia on 09-15-2022 Urea nitrogen [Mass/Vol] 23 mg/dL - [facility] Thin prep Papanicolaou smear with manual screeningOrdered By: Ganesh Garcia on 09-15-2022 Thin prep Papanicolaou smear with manual screening 9 5-15 [facility] Basophil percentageOrdered B y: Ganesh Garcia on 09-11-2022 Basophil percentage 246 mg/dL 74-106 [facility] Basophil percentage 136 mmol/L 136-145 [facility] Basophil percentage 4.3 mmol/L 3.5-5.1 [facility] Basophil percentage 100 mmol/L 98-107 [facility] Basophils (Bld) [#/Vol] 7.5 10*3/uL 4.4-11.0 [facility] Chloride [Moles/Vol] 100 mmol/L 98-107 [facility] Glucose [Mass/Vol] 246 mg/dL 74-106 [facility] Comment on above: Glucose result great er than or equal to 200 mg/dLsuggests DIABETES MELLITUS per A.D.A. criteria. Potassium [Moles/Vol] 4.3 mmol/L 3.5-5.1 [facility] Sodium [Moles/Vol] 136 mmol/L 136-145 [facility] WBC (Bld) [#/Vol] 7.5 10*3/uL 4.4-11.0 [facility] Blood erythrocytes count (nu mber/volume)Ordered By: Ganesh Garcia on 09-11-2022 RBC (Bld) [#/Vol] 3.79 10*6/uL 4.2-5.4 [facility] Blood hemoglobin measurement (mass/volume)Ordered By: Ganesh Garcia on 09-11-2022 Hemoglobin (Bld) [Mass/Vol] 10.5 g/dL 12.0-15.0 [facility] Blood platelet mean volumeOr dered By: Ganesh Garcia on 09-11-2022 Platelet mean volume (Bld) [Entitic vol] 10.1 fL 6.2-12.0 [facility] Determination of erythrocyte mean corpuscular volume (MCV)Ordered By: Ganesh Garcia on 09-11-2022 MCV (RBC) [Entitic vol] 85.2 fL 81-99 [facility] Hematocrit Auto (Bld) [Volum e fraction]Ordered By: Ganesh Garcia on 09-11-2022 Hematocrit (Bld) [Volume fraction] 32.3 % 37-47 [facility] Laboratory - Chemistry and C hemistry - challengeOrdered By: Ganesh Garcia on 09-11-2022 CO2 [Moles/Vol] 27.0 mmol/L 21.0-32.0 [facility] Natriuretic peptide B (Bld) [Mass/Vol] 18.5 pg/mL 0-100 [facility] Urea nitrogen/Creatinine [Mass ratio] 23.6 mg/mg 10-20 [facility] Laboratory - Hematology and Cell countsOrdered By: Ganesh Garcia on 09-11-2022 Erythrocyte distribution width (RBC) [Entitic vol] 43.0 fL 35.1-43.9 [facility] Erythrocyte distribution width (RBC) [Ratio] 13.7 % 11.6-14.6 [facility] MCH (RBC) [Entitic mass] 27.7 pg 27.0-32.0 [facility] Auto (RBC) [Mass/Vol]Or dered By: Ganesh Garcia on 09-11-2022 MCHC (RBC) [Mass/Vol] 32.5 g/dL 32-36 [facility] No Panel InformationOrdered By: Ganesh Garcia on 09-11-2022 Estimated GFR (MDRD) Amer 65 mL/min >60 [facility] Comment on above: GFR Calc Estimated GFR (MDRD) Non-Af Amer 54 mL/min >60 [facility] Comment on above: Non- GFR Calc 27.7 pg 27.0-32.0 [facility] 13.7 % 11.6-14.6 [facility] 43.0 fl 35.1-43.9 [facility] 54 mL/min >60 [facility] 65 mL/min >60 [facility] 23.6 RATIO 10-20 [facility] 27.0 mmol/L 21.0-32.0 [facility] 18.5 pg/mL 0-100 [facility] Platelets bldOrdered By: Robert Garcia on 09-11-2022 Platelets (Bld) [#/Vol] 257 10*3/uL 150-450 [facility] Serum or plasma calcium tai urement (mass/volume)Ordered By: Ganesh Garcia on 09-11-2022 Calcium [Mass/Vol] 8.6 mg/dL 8.5-10.1 [facility] Serum or plasma creatinine m easurement (mass/volume)Ordered By: Ganesh Garcia on 09-11-2022 Creatinine [Mass/Vol] 1.10 mg/dL 0.55-1.02 [facility] Comment on above: The validity of the calculated GFR & GFRAA in patients over 70 years has not been determined. Clinical correlation is essential. Serum or plasma urea nitroge n measurement (mass/volume)Ordered By: Ganesh Garcia on 09-11-2022 Urea nitrogen [Mass/Vol] 26 mg/dL -18 [facility] Thin prep Papanicolaou smear with manual screeningOrdered By: Ganesh Garcia on 09-11-2022 Thin prep Papanicolaou smear with manual screening 9 5-15 [facility] Basophil percentageOrdered B y: Ganesh Garcia on 09-01-2022 Chloride [Moles/Vol] 101 mmol/L 98-107 [facility] Glucose [Mass/Vol] 255 mg/dL 74-106 [facility] Comment on above: Glucose result great er than or equal to 200 mg/dLsuggests DIABETES MELLITUS per A.D.A. criteria. Potassium [Moles/Vol] 4.1 mmol/L 3.5-5.1 [facility] Sodium [Moles/Vol] 135 mmol/L 136-145 [facility] WBC (Bld) [#/Vol] 7.0 10*3/uL 4.4-11.0 [facility] Blood erythrocytes count (nu mber/volume)Ordered By: Ganesh Garcia on 09-01-2022 RBC (Bld) [#/Vol] 3.93 10*6/uL 4.2-5.4 [facility] Blood hemoglobin measurement (mass/volume)Ordered By: Ganesh Garcia on 09-01-2022 Hemoglobin (Bld) [Mass/Vol] 10.9 g/dL 12.0-15.0 [facility] Blood platelet mean volumeOr dered By: Ganesh Garcia on 09-01-2022 Platelet mean volume (Bld) [Entitic vol] 9.9 fL 6.2-12.0 [facility] Determination of erythrocyte mean corpuscular volume (MCV)Ordered By: Ganesh Garcia on 09-01-2022 MCV (RBC) [Entitic vol] 84.7 fL 81-99 [facility] Hematocrit Auto (Bld) [Volum e fraction]Ordered By: Ganesh Garcia on 09-01-2022 Hematocrit (Bld) [Volume fraction] 33.3 % 37-47 [facility] Laboratory - Chemistry and C hemistry - challengeOrdered By: Ganesh Garcia on 09-01-2022 CO2 [Moles/Vol] 27.0 mmol/L 21.0-32.0 [facility] Urea nitrogen/Creatinine [Mass ratio] 13.4 mg/mg 10-20 [facility] Laboratory - Hematology and Cell countsOrdered By: Ganesh Garcia on 09-01-2022 Erythrocyte distribution width (RBC) [Entitic vol] 42.9 fL 35.1-43.9 [facility] Erythrocyte distribution width (RBC) [Ratio] 13.9 % 11.6-14.6 [facility] MCH (RBC) [Entitic mass] 27.7 pg 27.0-32.0 [facility] MCHC Auto (RBC) [Mass/Vol]Or dered By: Ganesh Garcia on 09-01-2022 MCHC (RBC) [Mass/Vol] 32.7 g/dL 32-36 [facility] No Panel InformationOrdered By: Ganesh Garcia on 09-01-2022 Estimated GFR (MDRD) Amer 60 mL/min >60 [facility] Comment on above: GFR Calc Estimated GFR (MDRD) Non-Af Amer 49 mL/min >60 [facility] Comment on above: Non- GFR Calc Platelets bldOrdered By: Robert Garcia on 09-01-2022 Platelets (Bld) [#/Vol] 328 10*3/uL 150-450 [facility] Serum or plasma calcium tai urement (mass/volume)Ordered By: Ganesh Garcia on 09-01-2022 Calcium [Mass/Vol] 9.1 mg/dL 8.5-10.1 [facility] Serum or plasma creatinine m easurement (mass/volume)Ordered By: Ganesh Garcia on 09-01-2022 Creatinine [Mass/Vol] 1.19 mg/dL 0.55-1.02 [facility] Comment on above: The validity of the calculated GFR & GFRAA in patients over 70 years has not been determined. Clinical correlation is essential. Serum or plasma urea nitroge n measurement (mass/volume)Ordered By: Ganesh Garcia on 09-01-2022 Urea nitrogen [Mass/Vol] 16 mg/dL 7-18 [facility] Thin prep Papanicolaou smear with manual screeningOrdered By: Ganesh Garcia on 09-01-2022 Thin prep Papanicolaou smear with manual screening 7 5-15 [facility] Absolute lymphocyte countOrd ered By: Dr. Govea on 08-24-2022 Lymphocytes Auto (Unsp spec) [#/Vol] 3.37 10*3/uL 0.83-4.51 [facility] Basophil percentageOrdered B y: Dr. Govea on 08-24-2022 Basophils/100 WBC (Bld) 0.6 % 0-1 [facility] Bilirubin [Mass/Vol] 0.40 mg/dL 0.20-1.00 [facility] Comment on above: For patients on eltr ombopag therapy, use of Dimension [place] TBIL is not recommended. Chloride [Moles/Vol] 97 mmol/L 98-107 [facility] Eosinophils/100 WBC (Bld) 1.6 % 0-5 [facility] Glucose [Mass/Vol] 235 mg/dL 74-106 [facility] Comment on above: Glucose result great er than or equal to 200 mg/dLsuggests DIABETES MELLITUS per A.D.A. criteria. Neutrophils (Bld) [#/Vol] 4.6 10*3/uL 2.0-7.7 [facility] Neutrophils/100 WBC (Bld) 53.6 % 47-70 [facility] Potassium [Moles/Vol] 4.4 mmol/L 3.5-5.1 [facility] Protein [Mass/Vol] 7.0 g/dL 6.4-8.2 [facility] Sodium [Moles/Vol] 134 mmol/L 136-145 [facility] WBC (Bld) [#/Vol] 8.6 10*3/uL 4.4-11.0 [facility] Blood erythrocytes count (nu mber/volume)Ordered By: Dr. Govea on 08-24-2022 RBC (Bld) [#/Vol] 4.30 10*6/uL 4.2-5.4 [facility] Blood hemoglobin measurement (mass/volume)Ordered By: Dr. Govea on 08-24-2022 Hemoglobin (Bld) [Mass/Vol] 12.0 g/dL 12.0-15.0 [facility] Blood lymphocytes/100 leukoc ytesOrdered By: Dr. Govea on 08-24-2022 Lymphocytes/100 WBC (Bld) 39.0 % 19-41 [facility] Blood monocytes/100 leukocyt esOrdered By: Dr. Govea on 08-24-2022 Monocytes/100 WBC (Bld) 5.0 % 0-10 [facility] Blood platelet mean volumeOr dered By: Dr. Govea on 08-24-2022 Platelet mean volume (Bld) [Entitic vol] 9.5 fL 6.2-12.0 [facility] Determination of erythrocyte mean corpuscular volume (MCV)Ordered By: Dr. Govea on 08-24-2022 MCV (RBC) [Entitic vol] 83.5 fL 81-99 [facility] Direct bilirubinOrdered By: Dr. Govea on 08-24-2022 Bilirubin.direct [Mass/Vol] 0.13 mg/dL 0.00-0.30 [facility] Hematocrit Auto (Bld) [Volum e fraction]Ordered By: Dr. Govea on 08-24-2022 Hematocrit (Bld) [Volume fraction] 35.9 % 37-47 [facility] Laboratory - Chemistry and C hemistry - challengeOrdered By: Dr. Govea on 08-24-2022 ALP [Catalytic activity/Vol] 61 U/L 45-117 [facility] ALT [Catalytic activity/Vol] 23 U/L 13-56 [facility] CO2 [Moles/Vol] 28.0 mmol/L 21.0-32.0 [facility] Globulin (S) [Mass/Vol] 4.1 g/dL 2.2-4.2 [facility] Lipase [Catalytic activity/Vol] 92 U/L 73-393 [facility] Urea nitrogen/Creatinine [Mass ratio] 16.8 mg/mg 10-20 [facility] Laboratory - Hematology and Cell countsOrdered By: Dr. Govea on 08-24-2022 Erythrocyte distribution width (RBC) [Entitic vol] 42.8 fL 35.1-43.9 [facility] Erythrocyte distribution width (RBC) [Ratio] 14.2 % 11.6-14.6 [facility] Immature granulocytes/100 WBC (Bld) 0.200 % 0.0-0.9 [facility] Comment on above: IG% - Immature Granu locytes (promyelocytes, myelocytes and metamyelocytes) > 1% indicates that a LEFT SHIFT is Present. MCH (RBC) [Entitic mass] 27.9 pg 27.0-32.0 [facility] Nucleated RBC/100 WBC (Bld) [Ratio] 0 % 0-5 [facility] MCHC Auto (RBC) [Mass/Vol]Or dered By: Dr. Govea on 08-24-2022 MCHC (RBC) [Mass/Vol] 33.4 g/dL 32-36 [facility] No Panel InformationOrdered By: Dr. Govea on 08-24-2022 Troponin I High Sensitivity 10 pg/mL 3.0-54.0 [facility] Comment on above: Please Note: New Carolann t Units and Gender Specific Reference Ranges. For more information see Policy Stat Procedure [place] High Sensitivity Troponin (TNIH) and attachments. D-Dimer Quantitative (PE/DVT) 0.67 FEU/ug/m 0.27-0.49 [facility] Comment on above: D-Dimer ELEVATED (>0 .49): Additional studies and clinicalassessments are indicated to conclude diagnosis of:Deep Vein Thrombosis (DVT) or Pulmonary Embolism (PE)CRITICAL VALUE VERIFIED. CALLED TO PAT CANTU08/24/22 [id number] Maurice Cast.RESULTS READ BACK BY SAME . Estimated Creatinine Clearance Calc 30.43 ml/min [facility] Estimated GFR (MDRD) Amer 48 mL/min >60 [facility] Comment on above: GFR Calc Estimated GFR (MDRD) Non-Af Amer 40 mL/min >60 [facility] Comment on above: Non- GFR Calc Platelets bldOrdered By: Dr. Govea on 08-24-2022 Platelets (Bld) [#/Vol] 344 10*3/uL 150-450 [facility] Serum or plasma albumin tai urement (mass/volume)Ordered By: Dr. Govea on 08-24-2022 Albumin [Mass/Vol] 2.9 g/dL 3.2-5.0 [facility] Serum or plasma calcium tai urement (mass/volume)Ordered By: Dr. Govea on 08-24-2022 Calcium [Mass/Vol] 8.8 mg/dL 8.5-10.1 [facility] Serum or plasma creatinine m easurement (mass/volume)Ordered By: Dr. Govea on 08-24-2022 Creatinine [Mass/Vol] 1.43 mg/dL 0.55-1.02 [facility] Comment on above: The validity of the calculated GFR & GFRAA in patients over 70 years has not been determined. Clinical correlation is essential. Serum or plasma urea nitroge n measurement (mass/volume)Ordered By: Dr. Govea on 08-24-2022 Urea nitrogen [Mass/Vol] 24 mg/dL 7-18 [facility] Thin prep Papanicolaou smear with manual screeningOrdered By: Dr. Govea on 08-24-2022 Thin prep Papanicolaou smear with manual screening 22 U/L 15-37 [facility] Thin prep Papanicolaou smear with manual screening 9 5-15 [facility] Basophil percentageOrdered B y: Ganesh Garcia on 08-18-2022 Chloride [Moles/Vol] 103 mmol/L 98-107 [facility] Glucose [Mass/Vol] 158 mg/dL 74-106 [facility] Comment on above: Fasting Glucose resu lt greater than or equal to 126 mg/dL suggests DIABETES MELLITUS per A.D.A. criteria. Potassium [Moles/Vol] 4.2 mmol/L 3.5-5.1 [facility] Sodium [Moles/Vol] 137 mmol/L 136-145 [facility] WBC (Bld) [#/Vol] 7.1 10*3/uL 4.4-11.0 [facility] Blood erythrocytes count (nu mber/volume)Ordered By: Ganesh Garcia on 08-18-2022 RBC (Bld) [#/Vol] 3.85 10*6/uL 4.2-5.4 [facility] Blood hemoglobin measurement (mass/volume)Ordered By: Ganesh Garcia on 08-18-2022 Hemoglobin (Bld) [Mass/Vol] 11.0 g/dL 12.0-15.0 [facility] Blood platelet mean volumeOr dered By: Ganesh Garcia on 08-18-2022 Platelet mean volume (Bld) [Entitic vol] 9.6 fL 6.2-12.0 [facility] Determination of erythrocyte mean corpuscular volume (MCV)Ordered By: Ganesh Garcia on 08-18-2022 MCV (RBC) [Entitic vol] 87.3 fL 81-99 [facility] Hematocrit Auto (Bld) [Volum e fraction]Ordered By: Ganesh Garcia on 08-18-2022 Hematocrit (Bld) [Volume fraction] 33.6 % 37-47 [facility] Laboratory - Chemistry and C hemistry - challengeOrdered By: Ganesh Garcia on 08-18-2022 CO2 [Moles/Vol] 29.0 mmol/L 21.0-32.0 [facility] Urea nitrogen/Creatinine [Mass ratio] 21.4 mg/mg 10- [facility] Laboratory - Hematology and Cell countsOrdered By: Ganesh Garcia on 08-18-2022 Erythrocyte distribution width (RBC) [Entitic vol] 45.0 fL 35.1-43.9 [facility] Erythrocyte distribution width (RBC) [Ratio] 14.1 % 11.6-14.6 [facility] MCH (RBC) [Entitic mass] 28.6 pg 27.0-32.0 [facility] [facility] MCHC Auto (RBC) [Mass/Vol]Or dered By: Ganesh Garcia on 08-18-2022 MCHC (RBC) [Mass/Vol] 32.7 g/dL [facility] No Panel InformationOrdered By: Ganesh Garcia on 08-18-2022 Estimated GFR (MDRD) Amer 64 mL/min >60 [facility] Comment on above: GFR Calc Estimated GFR (MDRD) Non-Af Amer 53 mL/min >60 [facility] Comment on above: Non- GFR Calc Platelets bldOrdered By: Robert Garcia on 08-18-2022 Platelets (Bld) [#/Vol] 310 10*3/uL 150-450 [facility] Serum or plasma calcium tai urement (mass/volume)Ordered By: Ganesh Garcia on 08-18-2022 Calcium [Mass/Vol] 9.3 mg/dL 8.5-10.1 [facility] Serum or plasma creatinine m easurement (mass/volume)Ordered By: Ganesh Garcia on 08-18-2022 Creatinine [Mass/Vol] 1.12 mg/dL 0.55-1.02 [facility] Comment on above: The validity of the calculated GFR & GFRAA in patients over 70 years has not been determined. Clinical correlation is essential. Serum or plasma urea nitroge n measurement (mass/volume)Ordered By: Ganesh Garcia on 08-18-2022 Urea nitrogen [Mass/Vol] 24 mg/dL 7-18 [facility] Thin prep Papanicolaou smear with manual screeningOrdered By: Ganesh Garcia on 08-18-2022 Thin prep Papanicolaou smear with manual screening 5 5-15 [facility] Basophil percentageOrdered B y: Ganesh Garcia on 08-04-2022 Chloride [Moles/Vol] 102 mmol/L 98-107 [facility] Glucose [Mass/Vol] 215 mg/dL 74-106 [facility] Comment on above: Glucose result great er than or equal to 200 mg/dLsuggests DIABETES MELLITUS per A.D.A. criteria. Potassium [Moles/Vol] 4.1 mmol/L 3.5-5.1 [facility] Sodium [Moles/Vol] 137 mmol/L 136-145 [facility] WBC (Bld) [#/Vol] 6.8 10*3/uL 4.4-11.0 [facility] Blood erythrocytes count (nu mber/volume)Ordered By: Ganesh Garcia on 08-04-2022 RBC (Bld) [#/Vol] 3.88 10*6/uL 4.2-5.4 [facility] Blood hemoglobin measurement (mass/volume)Ordered By: Ganesh Garcia on 08-04-2022 Hemoglobin (Bld) [Mass/Vol] 10.8 g/dL 12.0-15.0 [facility] Blood platelet mean volumeOr dered By: Ganesh Garcia on 08-04-2022 Platelet mean volume (Bld) [Entitic vol] 9.9 fL 6.2-12.0 [facility] Determination of erythrocyte mean corpuscular volume (MCV)Ordered By: Ganesh Garcia on 08-04-2022 MCV (RBC) [Entitic vol] 87.9 fL 81-99 [facility] Hematocrit Auto (Bld) [Volum e fraction]Ordered By: Ganesh Garcia on 08-04-2022 Hematocrit (Bld) [Volume fraction] 34.1 % 37-47 [facility] Laboratory - Chemistry and C hemistry - challengeOrdered By: Ganesh Garcia on 08-04-2022 CO2 [Moles/Vol] 28.0 mmol/L 21.0-32.0 [facility] Urea nitrogen/Creatinine [Mass ratio] 19.1 mg/mg 10-20 [facility] Laboratory - Hematology and Cell countsOrdered By: Ganesh Garcia on 08-04-2022 Erythrocyte distribution width (RBC) [Entitic vol] 44.9 fL 35.1-43.9 [facility] Erythrocyte distribution width (RBC) [Ratio] 14.1 % 11.6-14.6 [facility] MCH (RBC) [Entitic mass] 27.8 pg 27.0-32.0 [facility] MCHC Auto (RBC) [Mass/Vol]Or dered By: Ganesh Garcia on 08-04-2022 MCHC (RBC) [Mass/Vol] 31.7 g/dL 32-36 [facility] No Panel InformationOrdered By: Ganesh Garcia on 08-04-2022 Estimated GFR (MDRD) Amer 74 mL/min >60 [facility] Comment on above: GFR Calc Estimated GFR (MDRD) Non-Af Amer 61 mL/min >60 [facility] Comment on above: Non- GFR Calc Platelets bldOrdered By: Robert Garcia on 08-04-2022 Platelets (Bld) [#/Vol] 319 10*3/uL 150-450 [facility] Serum or plasma calcium tai urement (mass/volume)Ordered By: Ganesh Garcia on 08-04-2022 Calcium [Mass/Vol] 8.9 mg/dL 8.5-10.1 [facility] Serum or plasma creatinine m easurement (mass/volume)Ordered By: Ganesh Garcia on 08-04-2022 Creatinine [Mass/Vol] 0.99 mg/dL 0.55-1.02 [facility] Comment on above: The validity of the calculated GFR & GFRAA in patients over 70 years has not been determined. Clinical correlation is essential. Serum or plasma urea nitroge n measurement (mass/volume)Ordered By: Ganesh Garcia on 08-04-2022 Urea nitrogen [Mass/Vol] 19 mg/dL 7-18 [facility] Thin prep Papanicolaou smear with manual screeningOrdered By: Ganesh Garcia on 08-04-2022 Thin prep Papanicolaou smear with manual screening 7 5-15 [facility] Basophil percentageon 2021 Chloride [Moles/Vol] 100 mmol/L 98-107 [facility] Work Phone: Cholesterol [Mass/Vol] 96 mg/dL <200 [facility] Work Phone: Comment on above: <200 mg/dL Desirable 200-240 mg/dL Borderline >240 mg/dL High Risk Glucose [Mass/Vol] 263 mg/dL 74-106 [facility] Work Phone: Comment on above: Glucose result great er than or equal to 200 mg/dLsuggests DIABETES MELLITUS per A.D.A. criteria. Potassium [Moles/Vol] 4.3 mmol/L 3.5-5.1 [facility] Work Phone: Sodium [Moles/Vol] 136 mmol/L 136-145 [facility] Work Phone: Triglyceride [Mass/Vol] 361 mg/dL <199 [facility] Work Phone: Comment on above: The drugs N-Acetylcy steine and Metamizole may falsely depress this assay.Serum Triglycerides Reference Interval Normal <150 mg/dL Borderline high 150 - 199 mg/dL High 200 - 499 mg/dL Very High > or = 500 mg/dL WBC (Bld) [#/Vol] 7.6 10*3/uL 4.4-11.0 [facility] Work Phone: Blood erythrocytes count (nu mber/volume)on 07-20-2022 RBC (Bld) [#/Vol] 3.77 10*6/uL 4.2-5.4 [facility] Work Phone: Blood hemoglobin measurement (mass/volume)on 07-20-2022 Hemoglobin (Bld) [Mass/Vol] 10.6 g/dL 12.0-15.0 [facility] Work Phone: Blood platelet mean volumeon 07-20-2022 Platelet mean volume (Bld) [Entitic vol] 10.0 fL 6.2-12.0 [facility] Work Phone: Determination of erythrocyte mean corpuscular volume (MCV)on 07-20-2022 MCV (RBC) [Entitic vol] 91.0 fL 81-99 [facility] Work Phone: Hematocrit Auto (Bld) [Volum e fraction]on 07-20-2022 Hematocrit (Bld) [Volume fraction] 34.3 % 37-47 [facility] Work Phone: Laboratory - Chemistry and C hemistry - challengeon 07-20-2022 CO2 [Moles/Vol] 27.0 mmol/L 21.0-32.0 [facility] Work Phone: Urea nitrogen/Creatinine [Mass ratio] 18.3 mg/mg 10-20 [facility] Work Phone: Laboratory - Hematology and Cell countson 07-20-2022 Erythrocyte distribution width (RBC) [Entitic vol] 44.6 fL 35.1-43.9 [facility] Work Phone: Erythrocyte distribution width (RBC) [Ratio] 13.5 % 11.6-14.6 [facility] Work Phone: MCH (RBC) [Entitic mass] 28.1 pg 27.0-32.0 [facility] Work Phone: MCHC Auto (RBC) [Mass/Vol]on 07-20-2022 MCHC (RBC) [Mass/Vol] 30.9 g/dL 32-36 [facility] Work Phone: No Panel Informationon 07-20 Estimated GFR (MDRD) Amer 70 mL/min >60 [facility] Work Phone: Comment on above: GFR Calc Estimated GFR (MDRD) Non-Af Amer 58 mL/min >60 [facility] Work Phone: Comment on above: Non- GFR Calc Platelets bldon 07-20-2022 Platelets (Bld) [#/Vol] 274 10*3/uL 150-450 [facility] Work Phone: Serum or plasma calcium tai urement (mass/volume)on 07-20-2022 Calcium [Mass/Vol] 8.7 mg/dL 8.5-10.1 [facility] Work Phone: Serum or plasma cholesterol in HDL measurement (mass/volume)on 07-20-2022 Cholesterol in HDL [Mass/Vol] 17 mg/dL >40 [facility] Work Phone: Comment on above: The drugs N-Acetylcy steine and Metamizole may falsely depress this assay. Reference Range HDL <40 mg/dL Low HDL Cholesterol HDL >or= 60 mg/dL High HDL Cholesterol Serum or plasma cholesterol in VLDL measurement (mass/volume)on 07-20-2022 Cholesterol in VLDL [Mass/Vol] 72 mg/dL 5-40 [facility] Work Phone: Serum or plasma creatinine m easurement (mass/volume)on 07-20-2022 Creatinine [Mass/Vol] 1.04 mg/dL 0.55-1.02 [facility] Work Phone: Comment on above: The validity of the calculated GFR & GFRAA in patients over 70 years has not been determined. Clinical correlation is essential. Serum or plasma low density lipoprotein (LDL) cholesterol measurement (mass/volume)on 07-20-2022 Cholesterol in LDL [Mass/Vol] 7 mg/dL 0-130 [facility] Work Phone: Serum or plasma urea nitroge n measurement (mass/volume)on 07-20-2022 Urea nitrogen [Mass/Vol] 19 mg/dL 7-18 [facility] Work Phone: Thin prep Papanicolaou smear with manual screeningon 07-20-2022 Thin prep Papanicolaou smear with manual screening 9 5-15 [facility] Work Phone: Basophil percentageon 2021 Basophil percentage 25-50 SEEN /hpf 0-5 [facility] Work Phone: Bilirubin Test strip Ql (U)o n 07-13-2022 Bilirubin Ql (U) Negative Negative [facility] Work Phone: Ketones Test strip Ql (U)on 07-13-2022 Ketones Ql (U) Negative Negative [facility] Work Phone: Mucus LM Ql (Urine sed)on Mucus Ql (Urine sed) 0 SEEN /hpf [facility] Work Phone: Nitrite Test strip Ql (U)on 07-13-2022 Nitrite Ql (U) Negative Negative [facility] Work Phone: Protein Test strip Ql (U)on 07-13-2022 Protein Ql (U) Negative Negative [facility] Work Phone: Squamous epithelial cells de tection in urine sediment by light microscopyon 07-13-2022 Epithelial cells.squamous LM Ql (Urine sed) 0-5 SEEN /hpf 5-10 [facility] Work Phone: Urine blood detectionon 06-25 RBC Ql (U) 10 /ul Negative [facility] Work Phone: RBC Ql (U) 0-5 SEEN /hpf 0-5 [facility] Work Phone: Urine clarityon 07-13-2022 Clarity (U) Sl. Cloudy Clear [facility] Work Phone: Urine color determinationon 07-13-2022 Color (U) Yellow Yellow [facility] Work Phone: Urine glucose detectionon Glucose Ql (U) 50 mg/dl Normal [facility] Work Phone: Urine leukocyte esterase det ection by dipstickon 07-13-2022 Leukocyte esterase Test strip Ql (U) 500 /ul Negative [facility] Work Phone: Urine pHon 07-13-2022 pH (U) 6.0 [pH] 5.0 - 8.0 [facility] Work Phone: Urine sediment bacteria coun t by microscopy (number/high power field)on 07-13-2022 Bacteria LM.HPF (Urine sed) [#/Area] 2 /[HPF] None Seen [facility] Work Phone: Urine specific gravity measu rementon 07-13-2022 Specific gravity (U) [Rel density] 1.010 1.002-1.03 0 [facility] Work Phone: Urobilinogen Auto test strip Ql (U)on 07-13-2022 Urobilinogen Ql (U) Normal mg/dl Normal [facility] Work Phone: Basophil percentageon 2021 Chloride [Moles/Vol] 101 mmol/L 98-107 [facility] Work Phone: Glucose [Mass/Vol] 240 mg/dL 74-106 [facility] Work Phone: Comment on above: Glucose result great er than or equal to 200 mg/dLsuggests DIABETES MELLITUS per A.D.A. criteria. Potassium [Moles/Vol] 3.9 mmol/L 3.5-5.1 [facility] Work Phone: Sodium [Moles/Vol] 136 mmol/L 136-145 [facility] Work Phone: WBC (Bld) [#/Vol] 7.8 10*3/uL 4.4-11.0 [facility] Work Phone: Blood erythrocytes count (nu mber/volume)on 07-07-2022 RBC (Bld) [#/Vol] 3.88 10*6/uL 4.2-5.4 [facility] Work Phone: Blood hemoglobin measurement (mass/volume)on 07-07-2022 Hemoglobin (Bld) [Mass/Vol] 11.1 g/dL 12.0-15.0 [facility] Work Phone: Blood platelet mean volumeon 07-07-2022 Platelet mean volume (Bld) [Entitic vol] 9.9 fL 6.2-12.0 [facility] Work Phone: Determination of erythrocyte mean corpuscular volume (MCV)on 07-07-2022 MCV (RBC) [Entitic vol] 89.4 fL 81-99 [facility] Work Phone: Hematocrit Auto (Bld) [Volum e fraction]on 07-07-2022 Hematocrit (Bld) [Volume fraction] 34.7 % 37-47 [facility] Work Phone: Laboratory - Chemistry and C hemistry - challengeon 07-07-2022 CO2 [Moles/Vol] 26.0 mmol/L 21.0-32.0 [facility] Work Phone: Urea nitrogen/Creatinine [Mass ratio] 18.7 mg/mg 10-20 [facility] Work Phone: Laboratory - Hematology and Cell countson 07-07-2022 Erythrocyte distribution width (RBC) [Entitic vol] 44.2 fL 35.1-43.9 [facility] Work Phone: Erythrocyte distribution width (RBC) [Ratio] 13.5 % 11.6-14.6 [facility] Work Phone: MCH (RBC) [Entitic mass] 28.6 pg 27.0-32.0 [facility] Work Phone: MCHC Auto (RBC) [Mass/Vol]on 07-07-2022 MCHC (RBC) [Mass/Vol] 32.0 g/dL 32-36 [facility] Work Phone: No Panel Informationon 07-07 Estimated GFR (MDRD) Amer 68 mL/min >60 [facility] Work Phone: Comment on above: GFR Calc Estimated GFR (MDRD) Non-Af Amer 56 mL/min >60 [facility] Work Phone: Comment on above: Non- GFR Calc Platelets bldon 07-07-2022 Platelets (Bld) [#/Vol] 310 10*3/uL 150-450 [facility] Work Phone: Serum or plasma calcium tai urement (mass/volume)on 07-07-2022 Calcium [Mass/Vol] 9.0 mg/dL 8.5-10.1 [facility] Work Phone: Serum or plasma creatinine m easurement (mass/volume)on 07-07-2022 Creatinine [Mass/Vol] 1.07 mg/dL 0.55-1.02 [facility] Work Phone: Comment on above: The validity of the calculated GFR & GFRAA in patients over 70 years has not been determined. Clinical correlation is essential. Serum or plasma urea nitroge n measurement (mass/volume)on 07-07-2022 Urea nitrogen [Mass/Vol] 20 mg/dL 7-18 [facility] Work Phone: Thin prep Papanicolaou smear with manual screeningon 07-07-2022 Thin prep Papanicolaou smear with manual screening 9 5-15 [facility] Work Phone: No Panel Informationon 07-03 Thyroid Stimulating Hormone (TSH) 1.98 uIU/mL 0.358-3.74 [facility] Work Phone: No Panel Informationon 07-01 Thyroid Stimulating Hormone (TSH) 1.82 uIU/mL 0.358-3.74 [facility] Work Phone: Whole blood hemoglobin A1c/t otal hemoglobin ratio (mass fraction)on 07-01-2022 HbA1c (Bld) [Mass fraction] 7.8 % 3.8-5.6 [facility] Work Phone: Comment on above: Normal < 5.7 % Predi abetic 5.7 - 6.4 % Diabetic >or= 6.5 % Please note range changes. Basophil percentageon 2021 Chloride [Moles/Vol] 99 mmol/L 98-107 [facility] Work Phone: Glucose [Mass/Vol] 193 mg/dL 74-106 [facility] Work Phone: Comment on above: Fasting Glucose resu lt greater than or equal to 126 mg/dL suggests DIABETES MELLITUS per A.D.A. criteria. Potassium [Moles/Vol] 4.1 mmol/L 3.5-5.1 [facility] Work Phone: Sodium [Moles/Vol] 137 mmol/L 136-145 [facility] Work Phone: WBC (Bld) [#/Vol] 7.4 10*3/uL 4.4-11.0 [facility] Work Phone: Blood erythrocytes count (nu mber/volume)on 06-23-2022 RBC (Bld) [#/Vol] 3.60 10*6/uL 4.2-5.4 [facility] Work Phone: Blood hemoglobin measurement (mass/volume)on 06-23-2022 Hemoglobin (Bld) [Mass/Vol] 10.6 g/dL 12.0-15.0 [facility] Work Phone: Blood platelet mean volumeon 06-23-2022 Platelet mean volume (Bld) [Entitic vol] 9.5 fL 6.2-12.0 [facility] Work Phone: Determination of erythrocyte mean corpuscular volume (MCV)on 06-23-2022 MCV (RBC) [Entitic vol] 89.7 fL 81-99 [facility] Work Phone: Hematocrit Auto (Bld) [Volum e fraction]on 06-23-2022 Hematocrit (Bld) [Volume fraction] 32.3 % 37-47 [facility] Work Phone: Laboratory - Chemistry and C hemistry - challengeon 06-23-2022 CO2 [Moles/Vol] 28.0 mmol/L 21.0-32.0 [facility] Work Phone: Urea nitrogen/Creatinine [Mass ratio] 19.3 mg/mg 10-20 [facility] Work Phone: Laboratory - Hematology and Cell countson 06-23-2022 Erythrocyte distribution width (RBC) [Entitic vol] 43.2 fL 35.1-43.9 [facility] Work Phone: Erythrocyte distribution width (RBC) [Ratio] 13.2 % 11.6-14.6 [facility] Work Phone: MCH (RBC) [Entitic mass] 29.4 pg 27.0-32.0 [facility] Work Phone: MCHC Auto (RBC) [Mass/Vol]on 06-23-2022 MCHC (RBC) [Mass/Vol] 32.8 g/dL 32-36 [facility] Work Phone: No Panel Informationon 06-23 Estimated GFR (MDRD) Amer 63 mL/min >60 [facility] Work Phone: Comment on above: GFR Calc Estimated GFR (MDRD) Non-Af Amer 52 mL/min >60 [facility] Work Phone: Comment on above: Non- GFR Calc Platelets bldon 06-23-2022 Platelets (Bld) [#/Vol] 348 10*3/uL 150-450 [facility] Work Phone: Serum or plasma calcium tai urement (mass/volume)on 06-23-2022 Calcium [Mass/Vol] 8.8 mg/dL 8.5-10.1 [facility] Work Phone: Serum or plasma creatinine m easurement (mass/volume)on 06-23-2022 Creatinine [Mass/Vol] 1.14 mg/dL 0.55-1.02 [facility] Work Phone: Comment on above: The validity of the calculated GFR & GFRAA in patients over 70 years has not been determined. Clinical correlation is essential. Serum or plasma urea nitroge n measurement (mass/volume)on 06-23-2022 Urea nitrogen [Mass/Vol] 22 mg/dL 7-18 [facility] Work Phone: Thin prep Papanicolaou smear with manual screeningon 06-23-2022 Thin prep Papanicolaou smear with manual screening 10 5-15 [facility] Work Phone: Absolute lymphocyte counton 06-12-2022 Lymphocytes Auto (Unsp spec) [#/Vol] 2.71 10*3/uL 0.83-4.51 [facility] Work Phone: Basophil percentageon 2021 Basophils/100 WBC (Bld) 0.7 % 0-1 [facility] Work Phone: Chloride [Moles/Vol] 99 mmol/L 98-107 [facility] Work Phone: Eosinophils/100 WBC (Bld) 1.9 % 0-5 [facility] Work Phone: Glucose [Mass/Vol] 244 mg/dL 74-106 [facility] Work Phone: Comment on above: Glucose result great er than or equal to 200 mg/dLsuggests DIABETES MELLITUS per A.D.A. criteria. Neutrophils (Bld) [#/Vol] 4.0 10*3/uL 2.0-7.7 [facility] Work Phone: Neutrophils/100 WBC (Bld) 53.9 % 47-70 [facility] Work Phone: Potassium [Moles/Vol] 4.1 mmol/L 3.5-5.1 [facility] Work Phone: Sodium [Moles/Vol] 135 mmol/L 136-145 [facility] Work Phone: WBC (Bld) [#/Vol] 7.5 10*3/uL 4.4-11.0 [facility] Work Phone: [phone] Blood erythrocytes count (nu mber/volume)on 06-12-2022 RBC (Bld) [#/Vol] 4.04 10*6/uL 4.2-5.4 [facility] Work Phone: Blood hemoglobin measurement (mass/volume)on 06-12-2022 Hemoglobin (Bld) [Mass/Vol] 11.9 g/dL 12.0-15.0 [facility] Work Phone: Blood lymphocytes/100 leukoc yteson 06-12-2022 Lymphocytes/100 WBC (Bld) 36.3 % 19-41 [facility] Work Phone: Blood monocytes/100 leukocyt eson 06-12-2022 Monocytes/100 WBC (Bld) 6.7 % 0-10 [facility] Work Phone: Blood platelet mean volumeon 06-12-2022 Platelet mean volume (Bld) [Entitic vol] 9.6 fL 6.2-12.0 [facility] Work Phone: Determination of erythrocyte mean corpuscular volume (MCV)on 06-12-2022 MCV (RBC) [Entitic vol] 90.8 fL 81-99 [facility] Work Phone: Hematocrit Auto (Bld) [Volum e fraction]on 06-12-2022 Hematocrit (Bld) [Volume fraction] 36.7 % 37-47 [facility] Work Phone: Laboratory - Chemistry and C hemistry - challengeon 06-12-2022 CO2 [Moles/Vol] 28.0 mmol/L 21.0-32.0 [facility] Work Phone: Natriuretic peptide B (Bld) [Mass/Vol] 9.7 pg/mL 0-100 [facility] Work Phone: Urea nitrogen/Creatinine [Mass ratio] 20.9 mg/mg 10-20 [facility] Work Phone: Laboratory - Hematology and Cell countson 06-12-2022 Erythrocyte distribution width (RBC) [Entitic vol] 45.7 fL 35.1-43.9 [facility] Work Phone: Erythrocyte distribution width (RBC) [Ratio] 13.8 % 11.6-14.6 [facility] Work Phone: Immature granulocytes/100 WBC (Bld) 0.500 % 0.0-0.9 [facility] Work Phone: Comment on above: IG% - Immature Granu locytes (promyelocytes, myelocytes and metamyelocytes) > 1% indicates that a LEFT SHIFT is Present. MCH (RBC) [Entitic mass] 29.5 pg 27.0-32.0 [facility] Work Phone: Nucleated RBC/100 WBC (Bld) [Ratio] 0 % 0-5 [facility] Work Phone: MCHC Auto (RBC) [Mass/Vol]on 06-12-2022 MCHC (RBC) [Mass/Vol] 32.4 g/dL 32-36 [facility] Work Phone: No Panel Informationon 06-12 Estimated GFR (MDRD) Amer 65 mL/min >60 [facility] Work Phone: Comment on above: GFR Calc Estimated GFR (MDRD) Non-Af Amer 54 mL/min >60 [facility] Work Phone: Comment on above: Non- GFR Calc Platelets bldon 06-12-2022 Platelets (Bld) [#/Vol] 323 10*3/uL 150-450 [facility] Work Phone: Serum or plasma calcium tai urement (mass/volume)on 06-12-2022 Calcium [Mass/Vol] 8.7 mg/dL 8.5-10.1 [facility] Work Phone: Serum or plasma creatinine m easurement (mass/volume)on 06-12-2022 Creatinine [Mass/Vol] 1.10 mg/dL 0.55-1.02 [facility] Work Phone: Comment on above: The validity of the calculated GFR & GFRAA in patients over 70 years has not been determined. Clinical correlation is essential. Serum or plasma urea nitroge n measurement (mass/volume)on 06-12-2022 Urea nitrogen [Mass/Vol] 23 mg/dL 7-18 [facility] Work Phone: Thin prep Papanicolaou smear with manual screeningon 06-12-2022 Thin prep Papanicolaou smear with manual screening 8 5-15 [facility] Work Phone: Basophil percentageon 2021 Chloride [Moles/Vol] 103 mmol/L 98-107 [facility] Work Phone: Glucose [Mass/Vol] 255 mg/dL 74-106 [facility] Work Phone: Comment on above: Glucose result great er than or equal to 200 mg/dLsuggests DIABETES MELLITUS per A.D.A. criteria. Potassium [Moles/Vol] 3.7 mmol/L 3.5-5.1 [facility] Work Phone: Sodium [Moles/Vol] 138 mmol/L 136-145 [facility] Work Phone: WBC (Bld) [#/Vol] 6.8 10*3/uL 4.4-11.0 [facility] Work Phone: Blood erythrocytes count (nu mber/volume)on 06-09-2022 RBC (Bld) [#/Vol] 3.50 10*6/uL 4.2-5.4 [facility] Work Phone: Blood hemoglobin measurement (mass/volume)on 06-09-2022 Hemoglobin (Bld) [Mass/Vol] 10.5 g/dL 12.0-15.0 [facility] Work Phone: Blood platelet mean volumeon 06-09-2022 Platelet mean volume (Bld) [Entitic vol] 9.7 fL 6.2-12.0 [facility] Work Phone: Determination of erythrocyte mean corpuscular volume (MCV)on 06-09-2022 MCV (RBC) [Entitic vol] 93.1 fL 81-99 [facility] Work Phone: Hematocrit Auto (Bld) [Volum e fraction]on 06-09-2022 Hematocrit (Bld) [Volume fraction] 32.6 % 37-47 [facility] Work Phone: Laboratory - Chemistry and C hemistry - challengeon 06-09-2022 CO2 [Moles/Vol] 27.0 mmol/L 21.0-32.0 [facility] Work Phone: Urea nitrogen/Creatinine [Mass ratio] 16.8 mg/mg 10-20 [facility] Work Phone: Laboratory - Hematology and Cell countson 06-09-2022 Erythrocyte distribution width (RBC) [Entitic vol] 47.2 fL 35.1-43.9 [facility] Work Phone: Erythrocyte distribution width (RBC) [Ratio] 13.8 % 11.6-14.6 [facility] Work Phone: MCH (RBC) [Entitic mass] 30.0 pg 27.0-32.0 [facility] Work Phone: MCHC Auto (RBC) [Mass/Vol]on 06-09-2022 MCHC (RBC) [Mass/Vol] 32.2 g/dL 32-36 [facility] Work Phone: No Panel Informationon 06-09 Estimated GFR (MDRD) Amer 68 mL/min >60 [facility] Work Phone: Comment on above: GFR Calc Estimated GFR (MDRD) Non-Af Amer 56 mL/min >60 [facility] Work Phone: Comment on above: Non- GFR Calc Platelets bldon 06-09-2022 Platelets (Bld) [#/Vol] 229 10*3/uL 150-450 [facility] Work Phone: Serum or plasma calcium tai urement (mass/volume)on 06-09-2022 Calcium [Mass/Vol] 8.6 mg/dL 8.5-10.1 [facility] Work Phone: Serum or plasma creatinine m easurement (mass/volume)on 06-09-2022 Creatinine [Mass/Vol] 1.07 mg/dL 0.55-1.02 [facility] Work Phone: Comment on above: The validity of the calculated GFR & GFRAA in patients over 70 years has not been determined. Clinical correlation is essential. Serum or plasma urea nitroge n measurement (mass/volume)on 06-09-2022 Urea nitrogen [Mass/Vol] 18 mg/dL 7-18 [facility] Work Phone: Thin prep Papanicolaou smear with manual screeningon 06-09-2022 Thin prep Papanicolaou smear with manual screening 8 5-15 [facility] Work Phone: Basophil percentageon 2021 Chloride [Moles/Vol] 101 mmol/L 98-107 [facility] Work Phone: Glucose [Mass/Vol] 261 mg/dL 74-106 [facility] Work Phone: Comment on above: Glucose result great er than or equal to 200 mg/dLsuggests DIABETES MELLITUS per A.D.A. criteria. Potassium [Moles/Vol] 4.0 mmol/L 3.5-5.1 [facility] Work Phone: Sodium [Moles/Vol] 134 mmol/L 136-145 [facility] Work Phone: WBC (Bld) [#/Vol] 6.3 10*3/uL 4.4-11.0 [facility] Work Phone: [phone] Blood erythrocytes count (nu mber/volume)on 05-26-2022 RBC (Bld) [#/Vol] 3.47 10*6/uL 4.2-5.4 [facility]: Blood hemoglobin measurement (mass/volume)on 05-26-2022 Hemoglobin (Bld) [Mass/Vol] 10.6 g/dL 12.0-15.0 [facility] Work Phone: Blood platelet mean volumeon 05-26-2022 Platelet mean volume (Bld) [Entitic vol] 9.6 fL 6.2-12.0 [facility] Work Phone: Determination of erythrocyte mean corpuscular volume (MCV)on 05-26-2022 MCV (RBC) [Entitic vol] 92.2 fL 81-99 [facility] Work Phone: Hematocrit Auto (Bld) [Volum e fraction]on 05-26-2022 Hematocrit (Bld) [Volume fraction] 32.0 % 37-47 [facility] Work Phone: Laboratory - Chemistry and C hemistry - challengeon 05-26-2022 CO2 [Moles/Vol] 29.0 mmol/L 21.0-32.0 [facility] Work Phone: Urea nitrogen/Creatinine [Mass ratio] 15.7 mg/mg 10-20 [facility] Work Phone: Laboratory - Hematology and Cell countson 05-26-2022 Erythrocyte distribution width (RBC) [Entitic vol] 48.0 fL 35.1-43.9 [facility] Work Phone: Erythrocyte distribution width (RBC) [Ratio] 14.3 % 11.6-14.6 [facility] Work Phone: MCH (RBC) [Entitic mass] 30.5 pg 27.0-32.0 [facility] Work Phone: MCHC Auto (RBC) [Mass/Vol]on 05-26-2022 MCHC (RBC) [Mass/Vol] 33.1 g/dL 32-36 [facility] Work Phone: No Panel Informationon 05-26 Estimated GFR (MDRD) Amer 55 mL/min >60 [facility] Work Phone: Comment on above: GFR Calc Estimated GFR (MDRD) Non-Af Amer 46 mL/min >60 [facility] Work Phone: Comment on above: Non- GFR Calc Platelets bldon 05-26-2022 Platelets (Bld) [#/Vol] 267 10*3/uL 150-450 [facility] Work Phone: Serum or plasma calcium tai urement (mass/volume)on 05-26-2022 Calcium [Mass/Vol] 8.9 mg/dL 8.5-10.1 [facility] Work Phone: Serum or plasma creatinine m easurement (mass/volume)on 05-26-2022 Creatinine [Mass/Vol] 1.27 mg/dL 0.55-1.02 [facility] Work Phone: Comment on above: The validity of the calculated GFR & GFRAA in patients over 70 years has not been determined. Clinical correlation is essential. Serum or plasma urea nitroge n measurement (mass/volume)on 05-26-2022 Urea nitrogen [Mass/Vol] 20 mg/dL 7-18 [facility] Work Phone: Thin prep Papanicolaou smear with manual screeningon 05-26-2022 Thin prep Papanicolaou smear with manual screening 4 5-15 [facility] Work Phone: Absolute lymphocyte counton 05-21-2022 Lymphocytes Auto (Unsp spec) [#/Vol] 2.91 10*3/uL 0.83-4.51 [facility] Work Phone: Basophil percentageon 2021 Basophils/100 WBC (Bld) 0.9 % 0-1 [facility] Work Phone: Bilirubin [Mass/Vol] 0.20 mg/dL 0.20-1.00 [facility] Work Phone: Comment on above: For patients on eltr ombopag therapy, use of Dimension [place]ell TBIL is not recommended. Chloride [Moles/Vol] 100 mmol/L 98-107 [facility] Work Phone: Cholesterol [Mass/Vol] 244 mg/dL <200 [facility] Work Phone: [phone] Comment on above: <200 mg/dL Desirable 200-240 mg/dL Borderline >240 mg/dL High Risk Eosinophils/100 WBC (Bld) 2.1 % 0-5 [facility] Work Phone: Glucose [Mass/Vol] 197 mg/dL 74-106 [facility] Work Phone: Comment on above: Fasting Glucose resu lt greater than or equal to 126 mg/dL suggests DIABETES MELLITUS per A.D.A. criteria. Neutrophils (Bld) [#/Vol] 2.3 10*3/uL 2.0-7.7 [facility] Work Phone: Neutrophils/100 WBC (Bld) 39.7 % 47-70 [facility] Work Phone: Potassium [Moles/Vol] 4.3 mmol/L 3.5-5.1 [facility] Work Phone: Protein [Mass/Vol] 6.9 g/dL 6.4-8.2 [facility] Work Phone: Sodium [Moles/Vol] 136 mmol/L 136-145 [facility] Work Phone: Triglyceride [Mass/Vol] 337 mg/dL <199 [facility] Work Phone: Comment on above: The drugs N-Acetylcy steine and Metamizole may falsely depress this assay.Serum Triglycerides Reference Interval Normal <150 mg/dL Borderline high 150 - 199 mg/dL High 200 - 499 mg/dL Very High > or = 500 mg/dL WBC (Bld) [#/Vol] 5.7 10*3/uL 4.4-11.0 [facility] Work Phone: Blood erythrocytes count (nu mber/volume)on 05-21-2022 RBC (Bld) [#/Vol] 3.57 10*6/uL 4.2-5.4 [facility] Work Phone: Blood hemoglobin measurement (mass/volume)on 05-21-2022 Hemoglobin (Bld) [Mass/Vol] 10.8 g/dL 12.0-15.0 [facility] Work Phone: Blood lymphocytes/100 leukoc yteson 05-21-2022 Lymphocytes/100 WBC (Bld) 51.4 % 19-41 [facility] Work Phone: Blood monocytes/100 leukocyt eson 05-21-2022 Monocytes/100 WBC (Bld) 5.5 % 0-10 [facility] Work Phone: Blood platelet mean volumeon 05-21-2022 Platelet mean volume (Bld) [Entitic vol] 9.2 fL 6.2-12.0 [facility] Work Phone: Determination of erythrocyte mean corpuscular volume (MCV)on 05-21-2022 MCV (RBC) [Entitic vol] 92.4 fL 81-99 [facility] Work Phone: Glucose Glucometer (BldC) [M ass/Vol]on 05-21-2022 Glucose [Mass/Vol] 164 mg/dL 74-106 [facility] Work Phone: Comment on above: MANAGEMENT OF PATIEN T CARE PER NURSING PROTOCOL Hematocrit Auto (Bld) [Volum e fraction]on 05-21-2022 Hematocrit (Bld) [Volume fraction] 33.0 % 37-47 [facility] Work Phone: Laboratory - Chemistry and C hemistry - challengeon 05-21-2022 ALP [Catalytic activity/Vol] 76 U/L 45-117 [facility] Work Phone: ALT [Catalytic activity/Vol] 83 U/L 13-56 [facility] Work Phone: CO2 [Moles/Vol] 31.0 mmol/L 21.0-32.0 [facility] Work Phone: Free T4 [Mass/Vol] 0.14 ng/dL 0.76-1.46 [facility] Work Phone: Globulin (S) [Mass/Vol] 3.8 g/dL 2.2-4.2 [facility] Work Phone: Urea nitrogen/Creatinine [Mass ratio] 15.0 mg/mg 10-20 [facility] Work Phone: Laboratory - Hematology and Cell countson 05-21-2022 Erythrocyte distribution width (RBC) [Entitic vol] 48.4 fL 35.1-43.9 [facility] Work Phone: Erythrocyte distribution width (RBC) [Ratio] 14.2 % 11.6-14.6 [facility] Work Phone: Immature granulocytes/100 WBC (Bld) 0.400 % 0.0-0.9 [facility] Work Phone: Comment on above: IG% - Immature Granu locytes (promyelocytes, myelocytes and metamyelocytes) > 1% indicates that a LEFT SHIFT is Present. MCH (RBC) [Entitic mass] 30.3 pg 27.0-32.0 [facility] Work Phone: Nucleated RBC/100 WBC (Bld) [Ratio] 0 % 0-5 [facility] Work Phone: MCHC Auto (RBC) [Mass/Vol]on 05-21-2022 MCHC (RBC) [Mass/Vol] 32.7 g/dL 32-36 [facility] Work Phone: No Panel Informationon 05-21 Estimated Creatinine Clearance Calc 36.71 ml/min [facility] Work Phone: Estimated GFR (MDRD) Amer 59 mL/min >60 [facility] Work Phone: Comment on above: GFR Calc Estimated GFR (MDRD) Non-Af Amer 49 mL/min >60 [facility] Work Phone: Comment on above: Non- GFR Calc Troponin I High Sensitivity 32 pg/mL 3.0-54.0 [facility] Work Phone: Comment on above: Please Note: New Carolann t Units and Gender Specific Reference Ranges. For more information see Policy Stat Procedure [place] High Sensitivity Troponin (TNIH) and attachments. Troponin I High Sensitivity 32 pg/mL 3.0-54.0 [facility] Work Phone: Comment on above: Please Note: New Carolann t Units and Gender Specific Reference Ranges. For more information see Policy Stat Procedure [place] High Sensitivity Troponin (TNIH) and attachments. Platelets bldon 05-21-2022 Platelets (Bld) [#/Vol] 240 10*3/uL 150-450 [facility] Work Phone: Serum or plasma albumin tai urement (mass/volume)on 05-21-2022 Albumin [Mass/Vol] 3.1 g/dL 3.2-5.0 [facility] Work Phone: Serum or plasma albumin/glob ulin mass ratioon 05-21-2022 Albumin/Globulin [Mass ratio] 0.8 {ratio} 0.9-2.4 [facility] Work Phone: Serum or plasma calcium tai urement (mass/volume)on 05-21-2022 Calcium [Mass/Vol] 8.6 mg/dL 8.5-10.1 [facility] Work Phone: Serum or plasma cholesterol in HDL measurement (mass/volume)on 05-21-2022 Cholesterol in HDL [Mass/Vol] 31 mg/dL >40 [facility] Work Phone: Comment on above: The drugs N-Acetylcy steine and Metamizole may falsely depress this assay. Reference Range HDL <40 mg/dL Low HDL Cholesterol HDL >or= 60 mg/dL High HDL Cholesterol Serum or plasma cholesterol in VLDL measurement (mass/volume)on 05-21-2022 Cholesterol in VLDL [Mass/Vol] 67 mg/dL 5-40 [facility] Work Phone: Serum or plasma creatinine m easurement (mass/volume)on 05-21-2022 Creatinine [Mass/Vol] 1.20 mg/dL 0.55-1.02 [facility] Work Phone: Comment on above: The validity of the calculated GFR & GFRAA in patients over 70 years has not been determined. Clinical correlation is essential. Serum or plasma low density lipoprotein (LDL) cholesterol measurement (mass/volume)on 05-21-2022 Cholesterol in LDL [Mass/Vol] 146 mg/dL 0-130 [facility] Work Phone: Serum or plasma urea nitroge n measurement (mass/volume)on 05-21-2022 Urea nitrogen [Mass/Vol] 18 mg/dL 7-18 [facility] Work Phone: Thin prep Papanicolaou smear with manual screeningon 05-21-2022 Thin prep Papanicolaou smear with manual screening 42 U/L 15-37 [facility] Work Phone: Thin prep Papanicolaou smear with manual screening 5 5-15 [facility] Work Phone: Absolute lymphocyte counton 05-20-2022 Lymphocytes Auto (Unsp spec) [#/Vol] 2.77 10*3/uL 0.83-4.51 [facility] Work Phone: Basophil percentageon 2021 Basophils/100 WBC (Bld) 0.9 % 0-1 [facility] Work Phone: Chloride [Moles/Vol] 99 mmol/L 98-107 [facility] Work Phone: Eosinophils/100 WBC (Bld) 2.0 % 0-5 [facility] Work Phone: Glucose [Mass/Vol] 322 mg/dL 74-106 [facility] Work Phone: Comment on above: Glucose result great er than or equal to 200 mg/dLsuggests DIABETES MELLITUS per A.D.A. criteria. Neutrophils (Bld) [#/Vol] 3.3 10*3/uL 2.0-7.7 [facility] Work Phone: Neutrophils/100 WBC (Bld) 49.7 % 47-70 [facility] Work Phone: Potassium [Moles/Vol] 4.3 mmol/L 3.5-5.1 [facility] Work Phone: Sodium [Moles/Vol] 135 mmol/L 136-145 [facility] Work Phone: WBC (Bld) [#/Vol] 6.6 10*3/uL 4.4-11.0 [facility] Work Phone: Blood erythrocytes count (nu mber/volume)on 05-20-2022 RBC (Bld) [#/Vol] 3.54 10*6/uL 4.2-5.4 [facility] Work Phone: Blood hemoglobin measurement (mass/volume)on 05-20-2022 Hemoglobin (Bld) [Mass/Vol] 10.9 g/dL 12.0-15.0 [facility] Work Phone: [phone] Blood lymphocytes/100 leukoc yteson 05-20-2022 Lymphocytes/100 WBC (Bld) 42.3 % 19-41 [facility] Work Phone: [phone] Blood monocytes/100 leukocyt eson 05-20-2022 Monocytes/100 WBC (Bld) 4.6 % 0-10 [facility] Work Phone: Blood platelet mean volumeon 05-20-2022 Platelet mean volume (Bld) [Entitic vol] 9.5 fL 6.2-12.0 [facility] Work Phone: Determination of erythrocyte mean corpuscular volume (MCV)on 05-20-2022 MCV (RBC) [Entitic vol] 91.5 fL 81-99 [facility] Work Phone: Hematocrit Auto (Bld) [Volum e fraction]on 05-20-2022 Hematocrit (Bld) [Volume fraction] 32.4 % 37-47 [facility] Work Phone: INR in Blood by Coagulation assayon 05-20-2022 INR Coag (Bld) [Relative time] 1.0 {INR} [facility] Work Phone: Laboratory - Chemistry and C hemistry - challengeon 05-20-2022 CO2 [Moles/Vol] 30.0 mmol/L 21.0-32.0 [facility] Work Phone: Magnesium [Mass/Vol] 2.1 mg/dL 1.6-2.6 [facility] Work Phone: Urea nitrogen/Creatinine [Mass ratio] 15.4 mg/mg 10-20 [facility] Work Phone: Laboratory - Coagulationon 0 05-20-2022 aPTT Coag (Bld) [Time] 29.0 s 24.1-36.2 [facility] Work Phone: PT Coag (PPP) [Time] 13.1 s 11.7-14.9 [facility] Work Phone: Laboratory - Drug toxicology on 05-20-2022 Amphetamines Ql (U) Negative <1000 ng/mL [facility] Work Phone: Benzodiazepines Ql (U) Positive < 200 ng/mL [facility] Work Phone: [phone] Cannabinoids Screen Ql (U) Negative < 50 ng/mL [facility] Work Phone: Cocaine Ql (U) Negative < 300 ng/mL [facility] Work Phone: Opiates Ql (U) Negative < 300 ng/mL [facility] Work Phone: Laboratory - Hematology and Cell countson 05-20-2022 Erythrocyte distribution width (RBC) [Entitic vol] 47.6 fL 35.1-43.9 [facility] Work Phone: Erythrocyte distribution width (RBC) [Ratio] 14.3 % 11.6-14.6 [facility] Work Phone: Immature granulocytes/100 WBC (Bld) 0.500 % 0.0-0.9 [facility] Work Phone: Comment on above: IG% - Immature Granu locytes (promyelocytes, myelocytes and metamyelocytes) > 1% indicates that a LEFT SHIFT is Present. MCH (RBC) [Entitic mass] 30.8 pg 27.0-32.0 [facility] Work Phone: Nucleated RBC/100 WBC (Bld) [Ratio] 0 % 0-5 [facility] Work Phone: MCHC Auto (RBC) [Mass/Vol]on 05-20-2022 MCHC (RBC) [Mass/Vol] 33.6 g/dL 32-36 [facility] Work Phone: No Panel Informationon 05-20 MDMA (Ecstasy) Screen Negative < 500 ng/mL [facility] Work Phone: Urine Barbiturates Screen Negative < 200 ng/mL [facility] Work Phone: Urine Drug Screen Comment [facility] Work Phone: Comment on above: CONFIRMATORY TESTING [...] Urine Methadone Screen Negative < 300 ng/mL [facility] Work Phone: Estimated Creatinine Clearance Calc 35.81 ml/min [facility] Work Phone: Estimated GFR (MDRD) Amer 58 mL/min >60 [facility] Work Phone: Comment on above: GFR Calc Estimated GFR (MDRD) Non-Af Amer 48 mL/min >60 [facility] Work Phone: Comment on above: Non- GFR Calc Thyroid Stimulating Hormone (TSH) 109.00 uIU/mL 0.358-3.74 [facility] Work Phone: Platelets bldon 05-20-2022 Platelets (Bld) [#/Vol] 291 10*3/uL 150-450 [facility] Work Phone: Serum or plasma calcium tai urement (mass/volume)on 05-20-2022 Calcium [Mass/Vol] 9.2 mg/dL 8.5-10.1 [facility] Work Phone: Serum or plasma creatinine m easurement (mass/volume)on 05-20-2022 Creatinine [Mass/Vol] 1.23 mg/dL 0.55-1.02 [facility] Work Phone: Comment on above: The validity of the calculated GFR & GFRAA in patients over 70 years has not been determined. Clinical correlation is essential. Serum or plasma urea nitroge n measurement (mass/volume)on 05-20-2022 Urea nitrogen [Mass/Vol] 19 mg/dL 7-18 [facility] Work Phone: Thin prep Papanicolaou smear with manual screeningon 05-20-2022 Thin prep Papanicolaou smear with manual screening 6 5-15 [facility] Work Phone: Urine phencyclidine (PCP) de tectionon 05-20-2022 Phencyclidine Ql (U) Negative < 25 ng/mL [facility] Work Phone: Basophil percentageon 2021 Chloride [Moles/Vol] 99 mmol/L 98-107 [facility] Work Phone: Glucose [Mass/Vol] 161 mg/dL 74-106 [facility] Work Phone: Comment on above: Fasting Glucose resu lt greater than or equal to 126 mg/dL suggests DIABETES MELLITUS per A.D.A. criteria. Potassium [Moles/Vol] 4.0 mmol/L 3.5-5.1 [facility] Work Phone: Sodium [Moles/Vol] 135 mmol/L 136-145 [facility] Work Phone: WBC (Bld) [#/Vol] 8.6 10*3/uL 4.4-11.0 [facility] Work Phone: Blood erythrocytes count (nu mber/volume)on 05-12-2022 RBC (Bld) [#/Vol] 3.83 10*6/uL 4.2-5.4 [facility] Work Phone: Blood hemoglobin measurement (mass/volume)on 05-12-2022 Hemoglobin (Bld) [Mass/Vol] 11.7 g/dL 12.0-15.0 [facility] Work Phone: Blood platelet mean volumeon 05-12-2022 Platelet mean volume (Bld) [Entitic vol] 9.0 fL 6.2-12.0 [facility] Work Phone: Determination of erythrocyte mean corpuscular volume (MCV)on 05-12-2022 MCV (RBC) [Entitic vol] 92.7 fL 81-99 [facility] Work Phone: Hematocrit Auto (Bld) [Volum e fraction]on 05-12-2022 Hematocrit (Bld) [Volume fraction] 35.5 % 37-47 [facility] Work Phone: Laboratory - Chemistry and C hemistry - challengeon 05-12-2022 CO2 [Moles/Vol] 30.0 mmol/L 21.0-32.0 [facility] Work Phone: Urea nitrogen/Creatinine [Mass ratio] 21.8 mg/mg 10-20 [facility] Work Phone: Laboratory - Hematology and Cell countson 05-12-2022 Erythrocyte distribution width (RBC) [Entitic vol] 48.8 fL 35.1-43.9 [facility] Work Phone: Erythrocyte distribution width (RBC) [Ratio] 14.5 % 11.6-14.6 [facility] Work Phone: MCH (RBC) [Entitic mass] 30.5 pg 27.0-32.0 [facility] Work Phone: MCHC Auto (RBC) [Mass/Vol]on 05-12-2022 MCHC (RBC) [Mass/Vol] 33.0 g/dL 32-36 [facility] Work Phone: No Panel Informationon 05-12 Estimated GFR (MDRD) Amer 60 mL/min >60 [facility] Work Phone: Comment on above: GFR Calc Estimated GFR (MDRD) Non-Af Amer 49 mL/min >60 [facility] Work Phone: Comment on above: Non- GFR Calc Platelets bldon 05-12-2022 Platelets (Bld) [#/Vol] 287 10*3/uL 150-450 [facility] Work Phone: Serum or plasma calcium tai urement (mass/volume)on 05-12-2022 Calcium [Mass/Vol] 9.7 mg/dL 8.5-10.1 [facility] Work Phone: Serum or plasma creatinine m easurement (mass/volume)on 05-12-2022 Creatinine [Mass/Vol] 1.19 mg/dL 0.55-1.02 [facility] Work Phone: Comment on above: The validity of the calculated GFR & GFRAA in patients over 70 years has not been determined. Clinical correlation is essential. Serum or plasma urea nitroge n measurement (mass/volume)on 05-12-2022 Urea nitrogen [Mass/Vol] 26 mg/dL 7-18 [facility] Work Phone: Thin prep Papanicolaou smear with manual screeningon 05-12-2022 Thin prep Papanicolaou smear with manual screening 6 5-15 [facility] Work Phone: Absolute lymphocyte counton 05-03-2022 Lymphocytes Auto (Unsp spec) [#/Vol] 2.67 10*3/uL 0.83-4.51 [facility] Work Phone: Basophil percentageon 2021 Basophils/100 WBC (Bld) 1.2 % 0-1 [facility] Work Phone: Chloride [Moles/Vol] 100 mmol/L 98-107 [facility] Work Phone: Eosinophils/100 WBC (Bld) 1.5 % 0-5 [facility] Work Phone: Glucose [Mass/Vol] 130 mg/dL 74-106 [facility] Work Phone: Comment on above: Fasting Glucose resu lt greater than or equal to 126 mg/dL suggests DIABETES MELLITUS per A.D.A. criteria. Neutrophils (Bld) [#/Vol] 2.7 10*3/uL 2.0-7.7 [facility] Work Phone: Neutrophils/100 WBC (Bld) 45.1 % 47-70 [facility] Work Phone: Potassium [Moles/Vol] 4.0 mmol/L 3.5-5.1 [facility] Work Phone: Sodium [Moles/Vol] 136 mmol/L 136-145 [facility] Work Phone: WBC (Bld) [#/Vol] 5.9 10*3/uL 4.4-11.0 [facility] Work Phone: Blood erythrocytes count (nu mber/volume)on 05-03-2022 RBC (Bld) [#/Vol] 3.46 10*6/uL 4.2-5.4 [facility] Work Phone: Blood hemoglobin measurement (mass/volume)on 05-03-2022 Hemoglobin (Bld) [Mass/Vol] 10.6 g/dL 12.0-15.0 [facility] Work Phone: Blood lymphocytes/100 leukoc yteson 05-03-2022 Lymphocytes/100 WBC (Bld) 45.1 % 19-41 [facility] Work Phone: [phone] Blood monocytes/100 leukocyt eson 05-03-2022 Monocytes/100 WBC (Bld) 6.3 % 0-10 [facility] Work Phone: Blood platelet mean volumeon 05-03-2022 Platelet mean volume (Bld) [Entitic vol] 9.4 fL 6.2-12.0 [facility] Work Phone: Determination of erythrocyte mean corpuscular volume (MCV)on 05-03-2022 MCV (RBC) [Entitic vol] 91.3 fL 81-99 [facility] Work Phone: Hematocrit Auto (Bld) [Volum e fraction]on 05-03-2022 Hematocrit (Bld) [Volume fraction] 31.6 % 37-47 [facility] Work Phone: Laboratory - Chemistry and C hemistry - challengeon 05-03-2022 CO2 [Moles/Vol] 29.0 mmol/L 21.0-32.0 [facility] Work Phone: Urea nitrogen/Creatinine [Mass ratio] 19.3 mg/mg 10-20 [facility] Work Phone: Laboratory - Hematology and Cell countson 05-03-2022 Erythrocyte distribution width (RBC) [Entitic vol] 46.8 fL 35.1-43.9 [facility] Work Phone: Erythrocyte distribution width (RBC) [Ratio] 14.4 % 11.6-14.6 [facility] Work Phone: Immature granulocytes/100 WBC (Bld) 0.800 % 0.0-0.9 [facility] Work Phone: Comment on above: IG% - Immature Granu locytes (promyelocytes, myelocytes and metamyelocytes) > 1% indicates that a LEFT SHIFT is Present. MCH (RBC) [Entitic mass] 30.6 pg 27.0-32.0 [facility] Work Phone: Nucleated RBC/100 WBC (Bld) [Ratio] 0.3 % 0-5 [facility] Work Phone: MCHC Auto (RBC) [Mass/Vol]on 05-03-2022 MCHC (RBC) [Mass/Vol] 33.5 g/dL 32-36 [facility] Work Phone: No Panel Informationon 05-03 Troponin I High Sensitivity 57 pg/mL 3.0-54.0 [facility] Work Phone: Comment on above: Please Note: New Carolann t Units and Gender Specific Reference Ranges. For more information see Policy Stat Procedure [place] High Sensitivity Troponin (TNIH) and attachments. Estimated Creatinine Clearance Calc 37.01 ml/min [facility] Work Phone: Estimated GFR (MDRD) Amer 60 mL/min >60 [facility] Work Phone: Comment on above: GFR Calc Estimated GFR (MDRD) Non-Af Amer 49 mL/min >60 [facility] Work Phone: Comment on above: Non- GFR Calc Platelets bldon 05-03-2022 Platelets (Bld) [#/Vol] 267 10*3/uL 150-450 [facility] Work Phone: Serum or plasma calcium tai urement (mass/volume)on 05-03-2022 Calcium [Mass/Vol] 9.1 mg/dL 8.5-10.1 [facility] Work Phone: Serum or plasma creatinine m easurement (mass/volume)on 05-03-2022 Creatinine [Mass/Vol] 1.19 mg/dL 0.55-1.02 [facility] Work Phone: Comment on above: The validity of the calculated GFR & GFRAA in patients over 70 years has not been determined. Clinical correlation is essential. Serum or plasma urea nitroge n measurement (mass/volume)on 05-03-2022 Urea nitrogen [Mass/Vol] 23 mg/dL 7-18 [facility] Work Phone: Thin prep Papanicolaou smear with manual screeningon 05-03-2022 Thin prep Papanicolaou smear with manual screening 7 5-15 [facility] Work Phone: Basophil percentageon 2021 Chloride [Moles/Vol] 92 mmol/L 98-107 [facility] Work Phone: Glucose [Mass/Vol] 66 mg/dL 74-106 [facility] Work Phone: Potassium [Moles/Vol] 4.3 mmol/L 3.5-5.1 [facility] Work Phone: Sodium [Moles/Vol] 131 mmol/L 136-145 [facility] Work Phone: WBC (Bld) [#/Vol] 6.1 10*3/uL 4.4-11.0 [facility] Work Phone: Blood erythrocytes count (nu mber/volume)on 04-28-2022 RBC (Bld) [#/Vol] 3.66 10*6/uL 4.2-5.4 [facility] Work Phone: Blood hemoglobin measurement (mass/volume)on 04-28-2022 Hemoglobin (Bld) [Mass/Vol] 11.1 g/dL 12.0-15.0 [facility] Work Phone: Blood platelet mean volumeon 04-28-2022 Platelet mean volume (Bld) [Entitic vol] 9.5 fL 6.2-12.0 [facility] Work Phone: Determination of erythrocyte mean corpuscular volume (MCV)on 04-28-2022 MCV (RBC) [Entitic vol] 90.7 fL 81-99 [facility] Work Phone: Hematocrit Auto (Bld) [Volum e fraction]on 04-28-2022 Hematocrit (Bld) [Volume fraction] 33.2 % 37-47 [facility] Work Phone: Laboratory - Chemistry and C hemistry - challengeon 04-28-2022 CO2 [Moles/Vol] 31.0 mmol/L 21.0-32.0 [facility] Work Phone: Urea nitrogen/Creatinine [Mass ratio] 21.4 mg/mg 10-20 [facility] Work Phone: Laboratory - Hematology and Cell countson 04-28-2022 Erythrocyte distribution width (RBC) [Entitic vol] 46.7 fL 35.1-43.9 [facility] Work Phone: Erythrocyte distribution width (RBC) [Ratio] 14.2 % 11.6-14.6 [facility] Work Phone: MCH (RBC) [Entitic mass] 30.3 pg 27.0-32.0 [facility] Work Phone: MCHC Auto (RBC) [Mass/Vol]on 04-28-2022 MCHC (RBC) [Mass/Vol] 33.4 g/dL 32-36 [facility] Work Phone: No Panel Informationon 04-28 Estimated GFR (MDRD) Amer 71 mL/min >60 [facility] Work Phone: Comment on above: GFR Calc Estimated GFR (MDRD) Non-Af Amer 58 mL/min >60 [facility] Work Phone: Comment on above: Non- GFR Calc Platelets bldon 04-28-2022 Platelets (Bld) [#/Vol] 262 10*3/uL 150-450 [facility] Work Phone: Serum or plasma calcium tai urement (mass/volume)on 04-28-2022 Calcium [Mass/Vol] 9.4 mg/dL 8.5-10.1 [facility] Work Phone: Serum or plasma creatinine m easurement (mass/volume)on 04-28-2022 Creatinine [Mass/Vol] 1.03 mg/dL 0.55-1.02 [facility] Work Phone: Comment on above: The validity of the calculated GFR & GFRAA in patients over 70 years has not been determined. Clinical correlation is essential. Serum or plasma urea nitroge n measurement (mass/volume)on 04-28-2022 Urea nitrogen [Mass/Vol] 22 mg/dL 7-18 [facility] Work Phone: Thin prep Papanicolaou smear with manual screeningon 04-28-2022 Thin prep Papanicolaou smear with manual screening 8 5-15 [facility] Work Phone: Basophil percentageon 2021 Bilirubin [Mass/Vol] 0.20 mg/dL 0.20-1.00 [facility] Work Phone: Comment on above: For patients on eltr ombopag therapy, use of Dimension Chassell TBIL is not recommended. Cholesterol [Mass/Vol] 254 mg/dL <200 [facility] Work Phone: Comment on above: <200 mg/dL Desirable 200-240 mg/dL Borderline >240 mg/dL High Risk Protein [Mass/Vol] 7.4 g/dL 6.4-8.2 [facility] Work Phone: Triglyceride [Mass/Vol] 250 mg/dL <199 [facility] Work Phone: Comment on above: The drugs N-Acetylcy steine and Metamizole may falsely depress this assay.Serum Triglycerides Reference Interval Normal <150 mg/dL Borderline high 150 - 199 mg/dL High 200 - 499 mg/dL Very High > or = 500 mg/dL Direct bilirubinon Bilirubin.direct [Mass/Vol] 0.08 mg/dL 0.00-0.30 [facility] Work Phone: Glucose Glucometer (BldC) [M ass/Vol]on 04-25-2022 Glucose [Mass/Vol] 172 mg/dL 74-106 [facility] Work Phone: Comment on above: MANAGEMENT OF PATIEN T CARE PER NURSING PROTOCOL Glucose [Mass/Vol] 135 mg/dL 74-106 [facility] Work Phone: Comment on above: MANAGEMENT OF PATIEN T CARE PER NURSING PROTOCOL Laboratory - Chemistry and C hemistry - challengeon 04-25-2022 ALP [Catalytic activity/Vol] 123 U/L 45-117 [facility] Work Phone: ALT [Catalytic activity/Vol] 157 U/L 13-56 [facility] Work Phone: Globulin (S) [Mass/Vol] 4.1 g/dL 2.2-4.2 [facility] Work Phone: Serum or plasma albumin tai urement (mass/volume)on 04-25-2022 Albumin [Mass/Vol] 3.3 g/dL 3.2-5.0 [facility] Work Phone: Serum or plasma cholesterol in HDL measurement (mass/volume)on 04-25-2022 Cholesterol in HDL [Mass/Vol] 41 mg/dL >40 [facility] Work Phone: Comment on above: The drugs N-Acetylcy steine and Metamizole may falsely depress this assay. Reference Range HDL <40 mg/dL Low HDL Cholesterol HDL >or= 60 mg/dL High HDL Cholesterol Serum or plasma cholesterol in VLDL measurement (mass/volume)on 04-25-2022 Cholesterol in VLDL [Mass/Vol] 50 mg/dL 5-40 [facility] Work Phone: Serum or plasma low density lipoprotein (LDL) cholesterol measurement (mass/volume)on 04-25-2022 Cholesterol in LDL [Mass/Vol] 163 mg/dL 0-130 [facility] Work Phone: Thin prep Papanicolaou smear with manual screeningon 04-25-2022 Thin prep Papanicolaou smear with manual screening 124 U/L 15-37 [facility] Work Phone: Whole blood hemoglobin A1c/t otal hemoglobin ratio (mass fraction)on 04-25-2022 HbA1c (Bld) [Mass fraction] 9.4 % 3.8-5.6 [facility] Work Phone: [phone] Comment on above: Normal < 5.7 % Predi abetic 5.7 - 6.4 % Diabetic >or= 6.5 % Please note range changes. Absolute lymphocyte counton 04-24-2022 Lymphocytes Auto (Unsp spec) [#/Vol] 2.29 10*3/uL 0.83-4.51 [facility] Work Phone: Basophil percentageon 2021 Basophils/100 WBC (Bld) 1.1 % 0-1 [facility] Work Phone: [phone] Chloride [Moles/Vol] 101 mmol/L 98-107 [facility] Work Phone: Eosinophils/100 WBC (Bld) 2.2 % 0-5 [facility] Work Phone: Glucose [Mass/Vol] 180 mg/dL 74-106 [facility] Work Phone: Comment on above: Fasting Glucose resu lt greater than or equal to 126 mg/dL suggests DIABETES MELLITUS per A.D.A. criteria. Neutrophils (Bld) [#/Vol] 2.6 10*3/uL 2.0-7.7 [facility] Work Phone: Neutrophils/100 WBC (Bld) 49.1 % 47-70 [facility] Work Phone: [phone] Potassium [Moles/Vol] 3.9 mmol/L 3.5-5.1 [facility] Work Phone: Sodium [Moles/Vol] 138 mmol/L 136-145 [facility] Work Phone: WBC (Bld) [#/Vol] 5.4 10*3/uL 4.4-11.0 [facility] Work Phone: Blood erythrocytes count (nu mber/volume)on 04-24-2022 RBC (Bld) [#/Vol] 3.73 10*6/uL 4.2-5.4 [facility] Work Phone: Blood hemoglobin measurement (mass/volume)on 04-24-2022 Hemoglobin (Bld) [Mass/Vol] 11.4 g/dL 12.0-15.0 [facility] Work Phone: Blood lymphocytes/100 leukoc yteson 04-24-2022 Lymphocytes/100 WBC (Bld) 42.6 % 19-41 [facility] Work Phone: Blood monocytes/100 leukocyt eson 04-24-2022 Monocytes/100 WBC (Bld) 3.9 % 0-10 [facility] Work Phone: Blood platelet mean volumeon 04-24-2022 Platelet mean volume (Bld) [Entitic vol] 9.5 fL 6.2-12.0 [facility] Work Phone: Determination of erythrocyte mean corpuscular volume (MCV)on 04-24-2022 MCV (RBC) [Entitic vol] 91.4 fL 81-99 [facility] Work Phone: Hematocrit Auto (Bld) [Volum e fraction]on 04-24-2022 Hematocrit (Bld) [Volume fraction] 34.1 % 37-47 [facility] Work Phone: Laboratory - Chemistry and C hemistry - challengeon 04-24-2022 CO2 [Moles/Vol] 28.0 mmol/L 21.0-32.0 [facility] Work Phone: Urea nitrogen/Creatinine [Mass ratio] 15.7 mg/mg 10-20 [facility] Work Phone: Laboratory - Hematology and Cell countson 04-24-2022 Erythrocyte distribution width (RBC) [Entitic vol] 46.6 fL 35.1-43.9 [facility] Work Phone: Erythrocyte distribution width (RBC) [Ratio] 14.0 % 11.6-14.6 [facility] Work Phone: Immature granulocytes/100 WBC (Bld) 1.100 % 0.0-0.9 [facility] Work Phone: Comment on above: IG% - Immature Granu locytes (promyelocytes, myelocytes and metamyelocytes) > 1% indicates that a LEFT SHIFT is Present. MCH (RBC) [Entitic mass] 30.6 pg 27.0-32.0 [facility] Work Phone: Nucleated RBC/100 WBC (Bld) [Ratio] 0 % 0-5 [facility] Work Phone: MCHC Auto (RBC) [Mass/Vol]on 04-24-2022 MCHC (RBC) [Mass/Vol] 33.4 g/dL 32-36 [facility] Work Phone: No Panel Informationon 04-24 Troponin I High Sensitivity 57 pg/mL 3.0-54.0 [facility] Work Phone: Comment on above: Please Note: New Carolann t Units and Gender Specific Reference Ranges. For more information see Policy Stat Procedure [place] High Sensitivity Troponin (TNIH) and attachments. D-Dimer Quantitative (PE/DVT) 0.32 FEU/ug/m 0.27-0.49 [facility] Work Phone: Comment on above: NORMAL D-Dimer level (<0.50) indicates no DVT or PE. Estimated Creatinine Clearance Calc 40.78 ml/min [facility] Work Phone: Estimated GFR (MDRD) Amer 67 mL/min >60 [facility] Work Phone: Comment on above: GFR Calc Estimated GFR (MDRD) Non-Af Amer 55 mL/min >60 [facility] Work Phone: Comment on above: Non- GFR Calc Platelets bldon 04-24-2022 Platelets (Bld) [#/Vol] 254 10*3/uL 150-450 [facility] Work Phone: Serum or plasma calcium tai urement (mass/volume)on 04-24-2022 Calcium [Mass/Vol] 9.3 mg/dL 8.5-10.1 [facility] Work Phone: Serum or plasma creatinine m easurement (mass/volume)on 04-24-2022 Creatinine [Mass/Vol] 1.08 mg/dL 0.55-1.02 [facility] Work Phone: Comment on above: The validity of the calculated GFR & GFRAA in patients over 70 years has not been determined. Clinical correlation is essential. Serum or plasma urea nitroge n measurement (mass/volume)on 04-24-2022 Urea nitrogen [Mass/Vol] 17 mg/dL 7-18 [facility] Work Phone: [phone] Thin prep Papanicolaou smear with manual screeningon 04-24-2022 Thin prep Papanicolaou smear with manual screening 9 5-15 [facility] Work Phone: Absolute lymphocyte counton 04-17-2022 Lymphocytes Auto (Unsp spec) [#/Vol] 2.66 10*3/uL 0.83-4.51 [facility] Work Phone: Basophil percentageon 2021 Basophils/100 WBC (Bld) 1.1 % 0-1 [facility] Work Phone: Chloride [Moles/Vol] 100 mmol/L 98-107 [facility] Work Phone: Eosinophils/100 WBC (Bld) 3.0 % 0-5 [facility] Work Phone: Glucose [Mass/Vol] 86 mg/dL 74-106 [facility] Work Phone: Neutrophils (Bld) [#/Vol] 2.1 10*3/uL 2.0-7.7 [facility] Work Phone: Neutrophils/100 WBC (Bld) 39.4 % 47-70 [facility] Work Phone: Potassium [Moles/Vol] 3.8 mmol/L 3.5-5.1 [facility] Work Phone: Sodium [Moles/Vol] 136 mmol/L 136-145 [facility] Work Phone: WBC (Bld) [#/Vol] 5.4 10*3/uL 4.4-11.0 [facility] Work Phone: Blood erythrocytes count (nu mber/volume)on 04-17-2022 RBC (Bld) [#/Vol] 3.75 10*6/uL 4.2-5.4 [facility]: Blood hemoglobin measurement (mass/volume)on 04-17-2022 Hemoglobin (Bld) [Mass/Vol] 11.5 g/dL 12.0-15.0 [facility] Work Phone: Blood lymphocytes/100 leukoc yteson 04-17-2022 Lymphocytes/100 WBC (Bld) 49.4 % 19-41 [facility] Work Phone: Blood monocytes/100 leukocyt eson 04-17-2022 Monocytes/100 WBC (Bld) 5.6 % 0-10 [facility] Work Phone: Blood platelet mean volumeon 04-17-2022 Platelet mean volume (Bld) [Entitic vol] 9.3 fL 6.2-12.0 [facility] Work Phone: Determination of erythrocyte mean corpuscular volume (MCV)on 04-17-2022 MCV (RBC) [Entitic vol] 91.7 fL 81-99 [facility] Work Phone: Hematocrit Auto (Bld) [Volum e fraction]on 04-17-2022 Hematocrit (Bld) [Volume fraction] 34.4 % 37-47 [facility] Work Phone: Laboratory - Chemistry and C hemistry - challengeon 04-17-2022 CO2 [Moles/Vol] 28.0 mmol/L 21.0-32.0 [facility] Work Phone: Urea nitrogen/Creatinine [Mass ratio] 14.8 mg/mg 10-20 [facility] Work Phone: Laboratory - Hematology and Cell countson 04-17-2022 Erythrocyte distribution width (RBC) [Entitic vol] 46.6 fL 35.1-43.9 [facility] Work Phone: Erythrocyte distribution width (RBC) [Ratio] 13.9 % 11.6-14.6 [facility] Work Phone: Immature granulocytes/100 WBC (Bld) 1.500 % 0.0-0.9 [facility] Work Phone: Comment on above: IG% - Immature Granu locytes (promyelocytes, myelocytes and metamyelocytes) > 1% indicates that a LEFT SHIFT is Present. MCH (RBC) [Entitic mass] 30.7 pg 27.0-32.0 [facility] Work Phone: Nucleated RBC/100 WBC (Bld) [Ratio] 0 % 0-5 [facility] Work Phone: MCHC Auto (RBC) [Mass/Vol]on 04-17-2022 MCHC (RBC) [Mass/Vol] 33.4 g/dL 32-36 [facility] Work Phone: No Panel Informationon 04-17 Estimated GFR (MDRD) Amer 55 mL/min >60 [facility] Work Phone: Comment on above: GFR Calc Estimated GFR (MDRD) Non-Af Amer 45 mL/min >60 [facility] Work Phone: Comment on above: Non- GFR Calc Platelets bldon 04-17-2022 Platelets (Bld) [#/Vol] 244 10*3/uL 150-450 [facility] Work Phone: Serum or plasma calcium tai urement (mass/volume)on 04-17-2022 Calcium [Mass/Vol] 9.1 mg/dL 8.5-10.1 [facility] Work Phone: Serum or plasma creatinine m easurement (mass/volume)on 04-17-2022 Creatinine [Mass/Vol] 1.28 mg/dL 0.55-1.02 [facility] Work Phone: Comment on above: The validity of the calculated GFR & GFRAA in patients over 70 years has not been determined. Clinical correlation is essential. Serum or plasma urea nitroge n measurement (mass/volume)on 04-17-2022 Urea nitrogen [Mass/Vol] 19 mg/dL 7-18 [facility] Work Phone: Thin prep Papanicolaou smear with manual screeningon 04-17-2022 Thin prep Papanicolaou smear with manual screening 8 5-15 [facility] Work Phone: Basophil percentageon 2021 Chloride [Moles/Vol] 99 mmol/L 98-107 [facility] Work Phone: Glucose [Mass/Vol] 59 mg/dL 74-106 [facility] Work Phone: Potassium [Moles/Vol] 4.0 mmol/L 3.5-5.1 [facility] Work Phone: Sodium [Moles/Vol] 135 mmol/L 136-145 [facility] Work Phone: WBC (Bld) [#/Vol] 5.8 10*3/uL 4.4-11.0 [facility] Work Phone: Blood erythrocytes count (nu mber/volume)on 04-13-2022 RBC (Bld) [#/Vol] 3.84 10*6/uL 4.2-5.4 [facility] Work Phone: Blood hemoglobin measurement (mass/volume)on 04-13-2022 Hemoglobin (Bld) [Mass/Vol] 11.6 g/dL 12.0-15.0 [facility] Work Phone: Blood platelet mean volumeon 04-13-2022 Platelet mean volume (Bld) [Entitic vol] 9.6 fL 6.2-12.0 [facility] Work Phone: Determination of erythrocyte mean corpuscular volume (MCV)on 04-13-2022 MCV (RBC) [Entitic vol] 93.2 fL 81-99 [facility] Work Phone: Hematocrit Auto (Bld) [Volum e fraction]on 04-13-2022 Hematocrit (Bld) [Volume fraction] 35.8 % 37-47 [facility] Work Phone: Laboratory - Chemistry and C hemistry - challengeon 04-13-2022 CO2 [Moles/Vol] 28.0 mmol/L 21.0-32.0 [facility] Work Phone: Urea nitrogen/Creatinine [Mass ratio] 13.2 mg/mg -20 [facility] Work Phone: Laboratory - Hematology and Cell countson 04-13-2022 Erythrocyte distribution width (RBC) [Entitic vol] 47.1 fL 35.1-43.9 [facility] Work Phone: Erythrocyte distribution width (RBC) [Ratio] 13.9 % 11.6-14.6 [facility] Work Phone: MCH (RBC) [Entitic mass] 30.2 pg 27.0-32.0 [facility] Work Phone: MCHC Auto (RBC) [Mass/Vol]on 04-13-2022 MCHC (RBC) [Mass/Vol] 32.4 g/dL 32-36 [facility] Work Phone: No Panel Informationon 04-13 Estimated GFR (MDRD) Amer 51 mL/min >60 [facility] Work Phone: Comment on above: GFR Calc Estimated GFR (MDRD) Non-Af Amer 42 mL/min >60 [facility] Work Phone: Comment on above: Non- GFR Calc Platelets bldon 04-13-2022 Platelets (Bld) [#/Vol] 284 10*3/uL 150-450 [facility] Work Phone: Serum or plasma calcium tai urement (mass/volume)on 04-13-2022 Calcium [Mass/Vol] 9.3 mg/dL 8.5-10.1 [facility] Work Phone: Serum or plasma creatinine m easurement (mass/volume)on 04-13-2022 Creatinine [Mass/Vol] 1.36 mg/dL 0.55-1.02 [facility] Work Phone: Comment on above: The validity of the calculated GFR & GFRAA in patients over 70 years has not been determined. Clinical correlation is essential. Serum or plasma urea nitroge n measurement (mass/volume)on 04-13-2022 Urea nitrogen [Mass/Vol] 18 mg/dL 7-18 [facility] Work Phone: Thin prep Papanicolaou smear with manual screeningon 04-13-2022 Thin prep Papanicolaou smear with manual screening 8 5-15 [facility] Work Phone: Basophil percentageon 2021 Chloride [Moles/Vol] 100 mmol/L 98-107 [facility] Work Phone: Glucose [Mass/Vol] 74 mg/dL 74-106 [facility] Work Phone: Potassium [Moles/Vol] 3.8 mmol/L 3.5-5.1 [facility] Work Phone: Sodium [Moles/Vol] 134 mmol/L 136-145 [facility] Work Phone: WBC (Bld) [#/Vol] 6.9 10*3/uL 4.4-11.0 [facility] Work Phone: Blood erythrocytes count (nu mber/volume)on 04-06-2022 RBC (Bld) [#/Vol] 3.80 10*6/uL 4.2-5.4 [facility] Work Phone: Blood hemoglobin measurement (mass/volume)on 04-06-2022 Hemoglobin (Bld) [Mass/Vol] 11.6 g/dL 12.0-15.0 [facility] Work Phone: Blood platelet mean volumeon 04-06-2022 Platelet mean volume (Bld) [Entitic vol] 9.2 fL 6.2-12.0 [facility] Work Phone: Determination of erythrocyte mean corpuscular volume (MCV)on 04-06-2022 MCV (RBC) [Entitic vol] 90.8 fL 81-99 [facility] Work Phone: Hematocrit Auto (Bld) [Volum e fraction]on 04-06-2022 Hematocrit (Bld) [Volume fraction] 34.5 % 37-47 [facility] Work Phone: Laboratory - Chemistry and C hemistry - challengeon 04-06-2022 CO2 [Moles/Vol] 27.0 mmol/L 21.0-32.0 [facility] Work Phone: Urea nitrogen/Creatinine [Mass ratio] 14.3 mg/mg 10-20 [facility] Work Phone: Laboratory - Hematology and Cell countson 04-06-2022 Erythrocyte distribution width (RBC) [Entitic vol] 46.6 fL 35.1-43.9 [facility] Work Phone: Erythrocyte distribution width (RBC) [Ratio] 13.9 % 11.6-14.6 [facility] Work Phone: MCH (RBC) [Entitic mass] 30.5 pg 27.0-32.0 [facility] Work Phone: MCHC Auto (RBC) [Mass/Vol]on 04-06-2022 MCHC (RBC) [Mass/Vol] 33.6 g/dL 32-36 [facility] Work [facility]: No Panel Informationon 04-06 Estimated GFR (MDRD) Amer 64 mL/min >60 [facility] Work Phone: Comment on above: GFR Calc Estimated GFR (MDRD) Non-Af Amer 53 mL/min >60 [facility] Work Phone: Comment on above: Non- GFR Calc Platelets bldon 04-06-2022 Platelets (Bld) [#/Vol] 309 10*3/uL 150-450 [facility] Work Phone: Serum or plasma calcium tai urement (mass/volume)on 04-06-2022 Calcium [Mass/Vol] 9.3 mg/dL 8.5-10.1 [facility] Work Phone: Serum or plasma creatinine m easurement (mass/volume)on 04-06-2022 Creatinine [Mass/Vol] 1.12 mg/dL 0.55-1.02 [facility] Work Phone: Comment on above: The validity of the calculated GFR & GFRAA in patients over 70 years has not been determined. Clinical correlation is essential. Serum or plasma urea nitroge n measurement (mass/volume)on 04-06-2022 Urea nitrogen [Mass/Vol] 16 mg/dL 7-18 [facility] Work Phone: Thin prep Papanicolaou smear with manual screeningon 04-06-2022 Thin prep Papanicolaou smear with manual screening 7 5-15 [facility] Work Phone: Glucose Glucometer (dC) [M ass/Vol]on 03-30-2022 Glucose [Mass/Vol] 140 mg/dL 74-106 [facility] Work Phone: Comment on above: MANAGEMENT OF PATIEN T CARE PER NURSING PROTOCOL Basophil percentageon 2021 Chloride [Moles/Vol] 97 mmol/L 98-107 [facility] Work Phone: Glucose [Mass/Vol] 78 mg/dL 74-106 [facility] Work Phone: Potassium [Moles/Vol] 3.5 mmol/L 3.5-5.1 [facility] Work Phone: Sodium [Moles/Vol] 136 mmol/L 136-145 [facility] Work Phone: Laboratory - Chemistry and C hemistry - challengeon 03-29-2022 CO2 [Moles/Vol] 30.0 mmol/L 21.0-32.0 [facility] Work Phone: Urea nitrogen/Creatinine [Mass ratio] 16.3 mg/mg 10-20 [facility] Work Phone: No Panel Informationon 03-29 Estimated Creatinine Clearance Calc 42.35 ml/min [facility] Work Phone: Estimated GFR (MDRD) Amer 70 mL/min >60 [facility] Work Phone: Comment on above: GFR Calc Estimated GFR (MDRD) Non-Af Amer 58 mL/min >60 [facility] Work Phone: Comment on above: Non- GFR Calc Serum or plasma calcium tai urement (mass/volume)on 03-29-2022 Calcium [Mass/Vol] 9.5 mg/dL 8.5-10.1 [facility] Work Phone: Serum or plasma creatinine m easurement (mass/volume)on 03-29-2022 Creatinine [Mass/Vol] 1.04 mg/dL 0.55-1.02 [facility] Work Phone: Comment on above: The validity of the calculated GFR & GFRAA in patients over 70 years has not been determined. Clinical correlation is essential. Serum or plasma urea nitroge n measurement (mass/volume)on 03-29-2022 Urea nitrogen [Mass/Vol] 17 mg/dL 7-18 [facility] Work Phone: Thin prep Papanicolaou smear with manual screeningon 03-29-2022 Thin prep Papanicolaou smear with manual screening 9 5-15 [facility] Work Phone: Absolute lymphocyte counton 03-26-2022 Lymphocytes Auto (Unsp spec) [#/Vol] 2.14 10*3/uL 0.83-4.51 [facility] Work Phone: Basophil percentageon 2021 Basophils/100 WBC (Bld) 0.6 % 0-1 [facility] Work Phone: Eosinophils/100 WBC (Bld) 1.4 % 0-5 [facility] Work Phone: Neutrophils (Bld) [#/Vol] 4.2 10*3/uL 2.0-7.7 [facility] Work Phone: Neutrophils/100 WBC (Bld) 60.0 % 47-70 [facility] Work Phone: WBC (Bld) [#/Vol] 7.0 10*3/uL 4.4-11.0 [facility] Work Phone: Blood erythrocytes count (nu mber/volume)on 03-26-2022 RBC (Bld) [#/Vol] 3.48 10*6/uL 4.2-5.4 [facility] Work Phone: Blood hemoglobin measurement (mass/volume)on 03-26-2022 Hemoglobin (Bld) [Mass/Vol] 10.6 g/dL 12.0-15.0 [facility] Work Phone: Blood lymphocytes/100 leukoc yteson 03-26-2022 Lymphocytes/100 WBC (Bld) 30.7 % 19-41 [facility] Work Phone: Blood monocytes/100 leukocyt eson 03-26-2022 Monocytes/100 WBC (Bld) 6.3 % 0-10 [facility] Work Phone: Blood platelet mean volumeon 03-26-2022 Platelet mean volume (Bld) [Entitic vol] 10.3 fL 6.2-12.0 [facility] Work Phone: Determination of erythrocyte mean corpuscular volume (MCV)on 03-26-2022 MCV (RBC) [Entitic vol] 92.8 fL 81-99 [facility] Work Phone: Hematocrit Auto (Bld) [Volum e fraction]on 03-26-2022 Hematocrit (Bld) [Volume fraction] 32.3 % 37-47 [facility] Work Phone: Laboratory - Hematology and Cell countson 03-26-2022 Erythrocyte distribution width (RBC) [Entitic vol] 45.7 fL 35.1-43.9 [facility] Work Phone: Erythrocyte distribution width (RBC) [Ratio] 13.5 % 11.6-14.6 [facility] Work Phone: Immature granulocytes/100 WBC (Bld) 1.000 % 0.0-0.9 [facility] Work Phone: Comment on above: IG% - Immature Granu locytes (promyelocytes, myelocytes and metamyelocytes) > 1% indicates that a LEFT SHIFT is Present. MCH (RBC) [Entitic mass] 30.5 pg 27.0-32.0 [facility] Work Phone: Nucleated RBC/100 WBC (Bld) [Ratio] 0 % 0-5 [facility] Work Phone: MCHC Auto (RBC) [Mass/Vol]on 03-26-2022 MCHC (RBC) [Mass/Vol] 32.8 g/dL 32-36 [facility] Work Phone: Platelets bldon 03-26-2022 Platelets (Bld) [#/Vol] 249 10*3/uL 150-450 [facility] Work Phone: Basophil percentageon 2021 Bilirubin [Mass/Vol] 0.40 mg/dL 0.20-1.00 [facility] Work Phone: Comment on above: For patients on eltr ombopag therapy, use of Dimension [place] TBIL is not recommended. Protein [Mass/Vol] 6.6 g/dL 6.4-8.2 [facility] Work Phone: [phone] Laboratory - Chemistry and C hemistry - challengeon 03-24-2022 ALP [Catalytic activity/Vol] 72 U/L 45-117 [facility] Work Phone: ALT [Catalytic activity/Vol] 56 U/L 13-56 [facility] Work Phone: [phone] Globulin (S) [Mass/Vol] 3.7 g/dL 2.2-4.2 [facility] Work Phone: Serum or plasma albumin tai urement (mass/volume)on 03-24-2022 Albumin [Mass/Vol] 2.9 g/dL 3.2-5.0 [facility] Work Phone: Serum or plasma albumin/glob ulin mass ratioon 03-24-2022 Albumin/Globulin [Mass ratio] 0.8 {ratio} 0.9-2.4 [facility] Work Phone: Thin prep Papanicolaou smear with manual screeningon 03-24-2022 Thin prep Papanicolaou smear with manual screening 62 U/L 15-37 [facility] Work Phone: Laboratory - Chemistry and C hemistry - challengeon 03-21-2022 Magnesium [Mass/Vol] 2.0 mg/dL 1.6-2.6 [facility] Work Phone: Absolute lymphocyte counton 03-20-2022 Lymphocytes Auto (Unsp spec) [#/Vol] 2.56 10*3/uL 0.83-4.51 [facility] Work Phone: Basophil percentageon 2021 Basophil percentage 25-50 SEEN /hpf 0-5 [facility] Work Phone: Basophils/100 WBC (Bld) 0.6 % 0-1 [facility] Work Phone: Chloride [Moles/Vol] 91 mmol/L 98-107 [facility] Work Phone: Eosinophils/100 WBC (Bld) 0.4 % 0-5 [facility] Work Phone: Glucose [Mass/Vol] 489 mg/dL 74-106 [facility] Work Phone: Comment on above: Glucose result great er than or equal to 200 mg/dLsuggests DIABETES MELLITUS per A.D.A. criteria. Neutrophils (Bld) [#/Vol] 3.8 10*3/uL 2.0-7.7 [facility] Work Phone: Neutrophils/100 WBC (Bld) 56.5 % 47-70 [facility] Work Phone: Potassium [Moles/Vol] 3.6 mmol/L 3.5-5.1 [facility] Work Phone: Sodium [Moles/Vol] 128 mmol/L 136-145 [facility] Work Phone: WBC (Bld) [#/Vol] 6.8 10*3/uL 4.4-11.0 [facility] Work Phone: Bilirubin Test strip Ql (U)o n 03-20-2022 Bilirubin Ql (U) Negative Negative [facility] Work Phone: Blood erythrocytes count (nu mber/volume)on 03-20-2022 RBC (Bld) [#/Vol] 4.08 10*6/uL 4.2-5.4 [facility] Work Phone: Blood hemoglobin measurement (mass/volume)on 03-20-2022 Hemoglobin (Bld) [Mass/Vol] 12.9 g/dL 12.0-15.0 [facility] Work Phone: Blood lymphocytes/100 leukoc yteson 03-20-2022 Lymphocytes/100 WBC (Bld) 37.6 % 19-41 [facility] Work Phone: Blood monocytes/100 leukocyt eson 03-20-2022 Monocytes/100 WBC (Bld) 4.3 % 0-10 [facility] Work Phone: Blood platelet mean volumeon 03-20-2022 Platelet mean volume (Bld) [Entitic vol] 9.7 fL 6.2-12.0 [facility] Work Phone: Determination of erythrocyte mean corpuscular volume (MCV)on 03-20-2022 MCV (RBC) [Entitic vol] 87.0 fL 81-99 [facility] Work Phone: Glucose Glucometer (BldC) [M ass/Vol]on 03-20-2022 Glucose [Mass/Vol] 420 mg/dL 74-106 [facility] Work Phone: Comment on above: MANAGEMENT OF PATIEN T CARE PER NURSING PROTOCOL Hematocrit Auto (Bld) [Volum e fraction]on 03-20-2022 Hematocrit (Bld) [Volume fraction] 35.5 % 37-47 [facility] Work Phone: Ketones Test strip Ql (U)on 03-20-2022 Ketones Ql (U) Negative Negative [facility] Work Phone: Laboratory - Chemistry and C hemistry - challengeon 03-20-2022 CO2 [Moles/Vol] 27.0 mmol/L 21.0-32.0 [facility] Work Phone: Urea nitrogen/Creatinine [Mass ratio] 11.0 mg/mg 10-20 [facility] Work Phone: Laboratory - Hematology and Cell countson 03-20-2022 Erythrocyte distribution width (RBC) [Entitic vol] 41.2 fL 35.1-43.9 [facility] Work Phone: Erythrocyte distribution width (RBC) [Ratio] 13.0 % 11.6-14.6 [facility] Work Phone: Immature granulocytes/100 WBC (Bld) 0.600 % 0.0-0.9 [facility] Work Phone: Comment on above: IG% - Immature Granu locytes (promyelocytes, myelocytes and metamyelocytes) > 1% indicates that a LEFT SHIFT is Present. MCH (RBC) [Entitic mass] 31.6 pg 27.0-32.0 [facility] Work Phone: Nucleated RBC/100 WBC (Bld) [Ratio] 0 % 0-5 [facility] Work Phone: MCHC Auto (RBC) [Mass/Vol]on 03-20-2022 MCHC (RBC) [Mass/Vol] 36.3 g/dL 32-36 [facility] Work Phone: Mucus LM Ql (Urine sed)on Mucus Ql (Urine sed) 0 SEEN /hpf [facility] Work Phone: Nitrite Test strip Ql (U)on 03-20-2022 Nitrite Ql (U) Negative Negative [facility] Work Phone: No Panel Informationon 03-20 Estimated Creatinine Clearance Calc 34.68 ml/min [facility] Work Phone: Estimated GFR (MDRD) Amer 56 mL/min >60 [facility] Work Phone: Comment on above: GFR Calc Estimated GFR (MDRD) Non-Af Amer 46 mL/min >60 [facility] Work Phone: Comment on above: Non- GFR Calc Platelets bldon 03-20-2022 Platelets (Bld) [#/Vol] 263 10*3/uL 150-450 [facility] Work Phone: Protein Test strip Ql (U)on 03-20-2022 Protein Ql (U) 30 mg/dl Negative [facility] Work Phone: Serum or plasma calcium tai urement (mass/volume)on 03-20-2022 Calcium [Mass/Vol] 9.1 mg/dL 8.5-10.1 [facility] Work Phone: Serum or plasma creatinine m easurement (mass/volume)on 03-20-2022 Creatinine [Mass/Vol] 1.27 mg/dL 0.55-1.02 [facility] Work Phone: Comment on above: The validity of the calculated GFR & GFRAA in patients over 70 years has not been determined. Clinical correlation is essential. Serum or plasma urea nitroge n measurement (mass/volume)on 03-20-2022 Urea nitrogen [Mass/Vol] 14 mg/dL 7-18 [facility] Work Phone: Squamous epithelial cells de tection in urine sediment by light microscopyon 03-20-2022 Epithelial cells.squamous LM Ql (Urine sed) 5-10 SEEN /hpf 5-10 [facility] Work Phone: Thin prep Papanicolaou smear with manual screeningon 03-20-2022 Thin prep Papanicolaou smear with manual screening 10 5-15 [facility] Work Phone: Urine blood detectionon 02-23 RBC Ql (U) 10 /ul Negative [facility] Work Phone: [phone] RBC Ql (U) 0 SEEN /hpf 0-5 [facility] Work Phone: Urine clarityon 03-20-2022 Clarity (U) Clear Clear [facility] Work Phone: Urine color determinationon 03-20-2022 Color (U) Yellow Yellow [facility] Work Phone: Urine glucose detectionon Glucose Ql (U) 1000 mg/dl Normal [facility] Work Phone: Urine leukocyte esterase det ection by dipstickon 03-20-2022 Leukocyte esterase Test strip Ql (U) 100 /ul Negative [facility] Work Phone: Urine pHon 03-20-2022 pH (U) 6.0 [pH] 5.0 - 8.0 [facility] Work Phone: Urine sediment bacteria coun t by microscopy (number/high power field)on 03-20-2022 Bacteria LM.HPF (Urine sed) [#/Area] 2 /[HPF] None Seen [facility] Work Phone: Urine specific gravity measu rementon 03-20-2022 Specific gravity (U) [Rel density] 1.015 1.002-1.03 0 [facility] Work Phone: Urobilinogen Auto test strip Ql (U)on 03-20-2022 Urobilinogen Ql (U) Normal mg/dl Normal [facility] Work Phone: Whole blood hemoglobin A1c/t otal hemoglobin ratio (mass fraction)on 03-20-2022 HbA1c (Bld) [Mass fraction] 13.1 % 3.8-5.6 [facility] Work Phone: Comment on above: Normal < 5.7 % Predi abetic 5.7 - 6.4 % Diabetic >or= 6.5 % Please note range changes. Absolute lymphocyte counton 02-24-2022 Lymphocytes Auto (Unsp spec) [#/Vol] 1.98 10*3/uL 0.83-4.51 [facility] Work Phone: Basophil percentageon 2021 Basophils/100 WBC (Bld) 0.8 % 0-1 [facility] Work Phone: Bilirubin [Mass/Vol] 0.50 mg/dL 0.20-1.00 [facility] Work Phone: Comment on above: For patients on eltr ombopag therapy, use of Dimension [place] TBIL is not recommended. Chloride [Moles/Vol] 87 mmol/L 98-107 [facility] Work Phone: Eosinophils/100 WBC (Bld) 0.2 % 0-5 [facility] Work Phone: Glucose [Mass/Vol] 569 mg/dL 74-106 [facility] Work Phone: Comment on above: Critical Result(s) C alled at: 14:47:48 02/24/2022 by: Juana Delacruz. Results read back by same.Glucose result greater than or equal to 200 mg/dLsuggests DIABETES MELLITUS per A.D.A. criteria. Neutrophils (Bld) [#/Vol] 3.9 10*3/uL 2.0-7.7 [facility] Work Phone: Neutrophils/100 WBC (Bld) 62.4 % 47-70 [facility] Work Phone: Potassium [Moles/Vol] 3.8 mmol/L 3.5-5.1 [facility] Work Phone: Protein [Mass/Vol] 7.6 g/dL 6.4-8.2 [facility] Work Phone: Sodium [Moles/Vol] 127 mmol/L 136-145 [facility] Work Phone: WBC (Bld) [#/Vol] 6.3 10*3/uL 4.4-11.0 [facility] Work Phone: Blood erythrocytes count (nu mber/volume)on 02-24-2022 RBC (Bld) [#/Vol] 4.08 10*6/uL 4.2-5.4 [facility] Work Phone: Blood hemoglobin measurement (mass/volume)on 02-24-2022 Hemoglobin (Bld) [Mass/Vol] 12.7 g/dL 12.0-15.0 [facility] Work Phone: Blood lymphocytes/100 leukoc yteson 02-24-2022 Lymphocytes/100 WBC (Bld) 31.4 % 19-41 [facility] Work Phone: Blood monocytes/100 leukocyt eson 02-24-2022 Monocytes/100 WBC (Bld) 4.4 % 0-10 [facility] Work Phone: Blood platelet mean volumeon 02-24-2022 Platelet mean volume (Bld) [Entitic vol] 9.7 fL 6.2-12.0 [facility] Work Phone: Determination of erythrocyte mean corpuscular volume (MCV)on 02-24-2022 MCV (RBC) [Entitic vol] 88.0 fL 81-99 [facility] Work Phone: Glucose Glucometer (BldC) [M ass/Vol]on 02-24-2022 Glucose [Mass/Vol] 407 mg/dL 74-106 [facility] Work Phone: Comment on above: MANAGEMENT OF PATIEN T CARE PER NURSING PROTOCOL Hematocrit Auto (Bld) [Volum e fraction]on 02-24-2022 Hematocrit (Bld) [Volume fraction] 35.9 % 37-47 [facility] Work Phone: Laboratory - Chemistry and C hemistry - challengeon 02-24-2022 ALP [Catalytic activity/Vol] 93 U/L 45-117 [facility] Work Phone: ALT [Catalytic activity/Vol] 56 U/L 13-56 [facility] Work Phone: CO2 [Moles/Vol] 27.0 mmol/L 21.0-32.0 [facility] Work Phone: Globulin (S) [Mass/Vol] 4.0 g/dL 2.2-4.2 [facility] Work Phone: Urea nitrogen/Creatinine [Mass ratio] 8.1 mg/mg 10-20 [facility] Work Phone: Laboratory - Hematology and Cell countson 02-24-2022 Erythrocyte distribution width (RBC) [Entitic vol] 44.8 fL 35.1-43.9 [facility] Work Phone: Erythrocyte distribution width (RBC) [Ratio] 14.0 % 11.6-14.6 [facility] Work Phone: Immature granulocytes/100 WBC (Bld) 0.800 % 0.0-0.9 [facility] Work Phone: Comment on above: IG% - Immature Granu locytes (promyelocytes, myelocytes and metamyelocytes) > 1% indicates that a LEFT SHIFT is Present. MCH (RBC) [Entitic mass] 31.1 pg 27.0-32.0 [facility] Work Phone: Nucleated RBC/100 WBC (Bld) [Ratio] 0 % 0-5 [facility] Work Phone: MCHC Auto (RBC) [Mass/Vol]on 02-24-2022 MCHC (RBC) [Mass/Vol] 35.4 g/dL 32-36 [facility] Work Phone: No Panel Informationon 02-24 Estimated Creatinine Clearance Calc 29.76 ml/min [facility] Work Phone: Estimated GFR (MDRD) Amer 47 mL/min >60 [facility] Work Phone: Comment on above: GFR Calc Estimated GFR (MDRD) Non-Af Amer 38 mL/min >60 [facility] Work Phone: Comment on above: Non- GFR Calc Platelets bldon 02-24-2022 Platelets (Bld) [#/Vol] 231 10*3/uL 150-450 [facility] Work Phone: Serum or plasma albumin tai urement (mass/volume)on 02-24-2022 Albumin [Mass/Vol] 3.6 g/dL 3.2-5.0 [facility] Work Phone: Serum or plasma albumin/glob ulin mass ratioon 02-24-2022 Albumin/Globulin [Mass ratio] 0.9 {ratio} 0.9-2.4 [facility] Work Phone: Serum or plasma calcium tai urement (mass/volume)on 02-24-2022 Calcium [Mass/Vol] 8.3 mg/dL 8.5-10.1 [facility] Work Phone: Serum or plasma creatinine m easurement (mass/volume)on 02-24-2022 Creatinine [Mass/Vol] 1.48 mg/dL 0.55-1.02 [facility] Work Phone: Comment on above: The validity of the calculated GFR & GFRAA in patients over 70 years has not been determined. Clinical correlation is essential. Serum or plasma urea nitroge n measurement (mass/volume)on 02-24-2022 Urea nitrogen [Mass/Vol] 12 mg/dL 7-18 [facility] Work Phone: Thin prep Papanicolaou smear with manual screeningon 02-24-2022 Thin prep Papanicolaou smear with manual screening 45 U/L 15-37 [facility] Work Phone: Thin prep Papanicolaou smear with manual screening 13 5-15 [facility] Work Phone: Absolute lymphocyte counton 01-13-2022 Lymphocytes Auto (Unsp spec) [#/Vol] 2.40 10*3/uL 0.83-4.51 [facility] Work Phone: Amorphous sediment detection in urine sediment by light microscopyon 01-13-2022 Amorphous sediment LM Ql (Urine sed) 1+ URATE [facility] Work Phone: Basophil percentageon 2021 Basophil percentage 25-50 SEEN /hpf 0-5 [facility] Work Phone: [phone] Basophils/100 WBC (Bld) 0.4 % 0-1 [facility] Work Phone: Chloride [Moles/Vol] 89 mmol/L 98-107 [facility] Work Phone: Eosinophils/100 WBC (Bld) 0.3 % 0-5 [facility] Work Phone: Glucose [Mass/Vol] 496 mg/dL 74-106 [facility] Work Phone: Comment on above: Glucose result great er than or equal to 200 mg/dLsuggests DIABETES MELLITUS per A.D.A. criteria. Neutrophils (Bld) [#/Vol] 4.8 10*3/uL 2.0-7.7 [facility] Work Phone: Neutrophils/100 WBC (Bld) 63.1 % 47-70 [facility] Work Phone: Potassium [Moles/Vol] 4.2 mmol/L 3.5-5.1 [facility] Work Phone: Sodium [Moles/Vol] 126 mmol/L 136-145 [facility] Work Phone: Comment on above: Critical Result(s) C alled at: 15:44:11 01/13/2022 by: AUSTYN ESTRELLA. to debra lynch rn ed Results read back by same. WBC (Bld) [#/Vol] 7.6 10*3/uL 4.4-11.0 [facility] Work Phone: [phone] Bilirubin Test strip Ql (U)o n 01-13-2022 Bilirubin Ql (U) Negative Negative [facility] Work Phone: Blood erythrocytes count (nu mber/volume)on 01-13-2022 RBC (Bld) [#/Vol] 4.55 10*6/uL 4.2-5.4 [facility] Work Phone: Blood hemoglobin measurement (mass/volume)on 01-13-2022 Hemoglobin (Bld) [Mass/Vol] 14.0 g/dL 12.0-15.0 [facility] Work Phone: Blood lymphocytes/100 leukoc yteson 01-13-2022 Lymphocytes/100 WBC (Bld) 31.7 % 19-41 [facility] Work Phone: Blood monocytes/100 leukocyt eson 01-13-2022 Monocytes/100 WBC (Bld) 4.0 % 0-10 [facility] Work Phone: Blood platelet mean volumeon 01-13-2022 Platelet mean volume (Bld) [Entitic vol] 9.8 fL 6.2-12.0 [facility] Work Phone: Culture, urineon 01-13-2022 Bacteria identified Cx Nom (U) Negative [facility] Work Phone: Bacteria identified Cx Nom (U) Mixed Gram Pos & Gram Neg Org [facility] Work Phone: Determination of erythrocyte mean corpuscular volume (MCV)on 01-13-2022 MCV (RBC) [Entitic vol] 82.6 fL 81-99 [facility] Work Phone: Glucose Glucometer (BldC) [M ass/Vol]on 01-13-2022 Glucose [Mass/Vol] 361 mg/dL 74-106 [facility] Work Phone: Comment on above: MANAGEMENT OF PATIEN T CARE PER NURSING PROTOCOL Hematocrit Auto (Bld) [Volum e fraction]on 01-13-2022 Hematocrit (Bld) [Volume fraction] 37.6 % 37-47 [facility] Work Phone: Ketones Test strip Ql (U)on 01-13-2022 Ketones Ql (U) Negative Negative [facility] Work Phone: Laboratory - Chemistry and C hemistry - challengeon 01-13-2022 CO2 [Moles/Vol] 28.0 mmol/L 21.0-32.0 [facility] Work Phone: Urea nitrogen/Creatinine [Mass ratio] 11.5 mg/mg 10-20 [facility] Work Phone: Laboratory - Hematology and Cell countson 01-13-2022 Erythrocyte distribution width (RBC) [Entitic vol] 42.2 fL 35.1-43.9 [facility] Work Phone: Erythrocyte distribution width (RBC) [Ratio] 14.0 % 11.6-14.6 [facility] Work Phone: Immature granulocytes/100 WBC (Bld) 0.500 % 0.0-0.9 [facility] Work Phone: Comment on above: IG% - Immature Granu locytes (promyelocytes, myelocytes and metamyelocytes) > 1% indicates that a LEFT SHIFT is Present. MCH (RBC) [Entitic mass] 30.8 pg 27.0-32.0 [facility] Work Phone: Nucleated RBC/100 WBC (Bld) [Ratio] 0 % 0-5 [facility] Work Phone: MCHC Auto (RBC) [Mass/Vol]on 01-13-2022 MCHC (RBC) [Mass/Vol] 37.2 g/dL 32-36 [facility] Work Phone: Mucus LM Ql (Urine sed)on Mucus Ql (Urine sed) 0 SEEN /hpf [facility] Work Phone: Nitrite Test strip Ql (U)on 01-13-2022 Nitrite Ql (U) Negative Negative [facility] Work Phone: No Panel Informationon 01-13 Estimated Creatinine Clearance Calc 28.06 ml/min [facility] Work Phone: Estimated GFR (MDRD) Amer 43 mL/min >60 [facility] Work Phone: Comment on above: GFR Calc Estimated GFR (MDRD) Non-Af Amer 36 mL/min >60 [facility] Work Phone: Comment on above: Non- GFR Calc Insulin Level 32.1 mU/L 2.6-37.6 [facility] Work Phone: Comment on above: Please Note: INSULIN METHOD & REFERENCE RANGE CHANGEEffective 11/04/2017. Platelets bldon 01-13-2022 Platelets (Bld) [#/Vol] 267 10*3/uL 150-450 [facility] Work Phone: Protein Test strip Ql (U)on 01-13-2022 Protein Ql (U) 30 mg/dl Negative [facility] Work Phone: Serum or plasma acetone tai urement (mass/volume)on 01-13-2022 Acetone [Mass/Vol] Negative NEG [facility] Work Phone: Serum or plasma calcium tai urement (mass/volume)on 01-13-2022 Calcium [Mass/Vol] 9.8 mg/dL 8.5-10.1 [facility] Work Phone: Serum or plasma creatinine m easurement (mass/volume)on 01-13-2022 Creatinine [Mass/Vol] 1.57 mg/dL 0.55-1.02 [facility] Work Phone: Comment on above: The validity of the calculated GFR & GFRAA in patients over 70 years has not been determined. Clinical correlation is essential. Serum or plasma urea nitroge n measurement (mass/volume)on 01-13-2022 Urea nitrogen [Mass/Vol] 18 mg/dL 7-18 [facility] Work Phone: Squamous epithelial cells de tection in urine sediment by light microscopyon 01-13-2022 Epithelial cells.squamous LM Ql (Urine sed) 0-5 SEEN /hpf 5-10 [facility] Work Phone: Thin prep Papanicolaou smear with manual screeningon 01-13-2022 Thin prep Papanicolaou smear with manual screening 9 5-15 [facility] Work Phone: Urine blood detectionon 12-24 RBC Ql (U) 10 /ul Negative [facility] Work Phone: RBC Ql (U) 0-5 SEEN /hpf 0-5 [facility] Work Phone: Urine clarityon 01-13-2022 Clarity (U) Sl. Cloudy Clear [facility] Work Phone: Urine color determinationon 01-13-2022 Color (U) Yellow Yellow [facility] Work Phone: Urine glucose detectionon Glucose Ql (U) 1000 mg/dl Normal [facility] Work Phone: Urine leukocyte esterase det ection by dipstickon 01-13-2022 Leukocyte esterase Test strip Ql (U) 500 /ul Negative [facility] Work Phone: Urine pHon 01-13-2022 pH (U) 5.0 [pH] 5.0 - 8.0 [facility] Work Phone: Urine sediment bacteria coun t by microscopy (number/high power field)on 01-13-2022 Bacteria LM.HPF (Urine sed) [#/Area] 0 /[HPF] None Seen [facility] Work Phone: Urine specific gravity measu rementon 01-13-2022 Specific gravity (U) [Rel density] 1.015 1.002-1.03 0 [facility] Work Phone: Urobilinogen Auto test strip Ql (U)on 01-13-2022 Urobilinogen Ql (U) Normal mg/dl Normal [facility] Work Phone: Gram stain for investigation of transfusion reactionon 09-27-2021 Microscopic observation Gram stain Nom (Unsp spec) [facility] Work Phone: .Auto Diffon 12-13-2019 Ammonia (P) [Mass/Vol] 0.30 10 3/mcL Normal 0.15-1.00 [facility] ([place]) Comment on above: Performed By: #### G FR, BMP #### [place] [address] #### CBC, ADIFF, ANEU #### [address] [address] Basophils (Bld) [#/Vol] 0.00 10 3/mcL Normal 0.00-0.19 [facility] ([place]) Comment on above: Performed By: #### G FR, BMP #### [place] [address] #### CBC, ADIFF, ANEU #### [address] [address] Basophils/100 WBC (Bld) 0.5 % Normal 0.0-2.5 [facility] ([place]) Comment on above: Performed By: #### G FR, BMP #### [place] [address] #### CBC, ADIFF, ANEU #### [address] [address] Eosinophils (Bld) [#/Vol] 0.00 10 3/mcL Normal 0.00-0. 40 [facility] ([place]) Comment on above: Performed By: #### G FR, BMP #### [place] [address] #### CBC, ADIFF, ANEU #### [address] [address] Eosinophils/100 WBC (Bld) 0.8 % Normal 0.0-7.0 [facility] [facility] ([place]) Comment on above: Performed By: #### G FR, BMP #### [place] [address] #### CBC, ADIFF, ANEU #### [address] [address] Lymphocytes (Bld) [#/Vol] 2.00 10 3/mcL Normal 0.77-3. 85 [facility], [facility] ([place]) Comment on above: Performed By: #### G FR, BMP #### [place] [address] #### CBC, ADIFF, ANEU #### [address] [address] Lymphocytes/100 WBC (Bld) 33.6 % Normal 10.0-50.0 [facility] ([place]) Comment on above: Performed By: #### G FR, BMP #### [address] [address] #### CBC, ADIFF, ANEU #### [address] [address] Monocytes/100 WBC (Bld) 4.7 % Normal 1.7-13.0 A [facility] ([place]) Comment on above: Performed By: #### G FR, BMP #### [place] [address] #### CBC, ADIFF, ANEU #### [address] [address] Neutrophils/100 WBC (Bld) 60.4 % Normal 37.0-80.0 [facility] ([place]) Comment on above: Performed By: #### G FR, BMP #### [place] [address] #### CBC, ADIFF, ANEU #### [address] [address] .GFRon 12-13-2019 GFR 54 ml/min/1.73sqm Normal [facility] ([place]) Comment on above: Result Comment: GFR Population [...] Performed By: #### G FR, BMP #### [place] [address] #### CBC, ADIFF, ANEU #### [address] [address] GFR Non- 45 ml/min/1.73sqm Normal [facility] ([place] Comment on above: Result Comment: GFR Population [...] Performed By: #### Taco FR, BMP #### [place] [address] #### CBC, ADIFF, ANEU #### [address] [address] .NEUABSon 12-13-2019 Neutrophils (Bld) [#/Vol] 3.50 10 3/mcL Normal 2.85-6. 16 [facility] ([place] Comment on above: Performed By: #### Taco PEARCE, BMP #### [place] [address] #### CBC, ADIFF, ANEU #### [address] [address] .Urinalysis Microscopic (AO) on 12-13-2019 RBC (U) [#/Vol] LOADED Abnormal None Seen [facility] ([place]) Comment on above: Performed By: #### U AMICAO, UA #### [place] [address] UA Squam Epithelial 0-5 Abnormal None Seen Pending [facility] to [facility] ([place]) Comment on above: Performed By: #### U AMICAO, UA #### [place] [address] UA WBC 0-5 Abnormal None Seen [facility] ([place] Comment on above: Performed By: #### U AMICAO, UA #### [place] [address] BMPon 12-13-2019 Calcium [Mass/Vol] 9.2 mg/dL Normal 8.4-10.2 [facility] ([place]) Comment on above: Performed By: #### G FR, BMP #### [place] [address] #### CBC, ADIFF, ANEU #### [address] [address] Chloride [Moles/Vol] 90 mmol/L Low 98-107 [facility] ([place]) Comment on above: Performed By: #### G FR, BMP #### [place] [address] #### CBC, ADIFF, ANEU #### [address] [address] CO2 [Moles/Vol] 25 mmol/L Normal 22-29 [facility] ([place] Comment on above: Performed By: #### G FR, BMP #### [place] [address] #### CBC, ADIFF, ANEU #### [address] [address] Creatinine [Mass/Vol] 1.24 mg/dL High 0.55-1.02 [facility] ([place]) Comment on above: Performed By: #### G FR, BMP #### [place] [address] #### CBC, ADIFF, ANEU #### [address] [address] Electrolyte Balance 11.0 mEq/L Normal P[facility] to [facility] ([place]) Comment on above: Performed By: #### G FR, BMP #### [place] [address] #### CBC, ADIFF, ANEU #### [address] [address] Glucose [Mass/Vol] 697 mg/dL Critically abnormal 70-105 [facility] ([place] Comment on above: Performed By: #### G FR, BMP #### [place] [address] #### CBC, ADIFF, ANEU #### [address] [address] Potassium [Moles/Vol] 4.0 mmol/L Normal 3.5-5.1 [facility] ([place]) Comment on above: Performed By: #### G FR, BMP #### [place] [address] #### CBC, ADIFF, ANEU #### [address] [address] Sodium [Moles/Vol] 126 mmol/L Low 136-145 [facility] ([place]) Comment on above: Performed By: #### G FR, BMP #### [place] [address] #### CBC, ADIFF, ANEU #### [address] [address] Urea nitrogen [Mass/Vol] 17 mg/dL Normal 7-18 [facility] ([place] Comment on above: Performed By: #### G FR, BMP #### [place] [address] #### CBC, ADIFF, ANEU #### [address] [address] Urea nitrogen/Creatinine [Mass ratio] 14 ratio Normal 7-27 [facility] ([place] Comment on above: Performed By: #### G FR, BMP #### [address] [address] #### CBC, ADIFF, ANEU #### [address] [address] CBCon 12-13-2019 Erythrocyte distribution width (RBC) [Ratio] 12.7 % Normal 11.5-14.5 [facility] ([place] Comment on above: Performed By: #### G FR, BMP #### [place] [address] #### CBC, ADIFF, ANEU #### [address] [address] Hematocrit (Bld) [Volume fraction] 41.3 % Normal 37.0-47.0 [facility] ([place] Comment on above: Performed By: #### G FR, BMP #### [place] [address] #### CBC, ADIFF, ANEU #### [address] [address] Hemoglobin (Bld) [Mass/Vol] 13.9 G/dL Normal 12.0-16.0 [facility] ([place] Comment on above: Performed By: #### Taco FR, BMP #### [place] [address] #### CBC, ADIFF, ANEU #### [address] [address] MCH (RBC) [Entitic mass] 30.5 pg Normal 27.0-31.2 [facility] ([place] Comment on above: Performed By: #### G FR, BMP #### [place] [address] #### CBC, ADIFF, ANEU #### [address] [address] MCHC (RBC) [Mass/Vol] 33.7 G/dL Normal 33.0-37.0 [facility] ([place]) Comment on above: Performed By: #### G FR, BMP #### [place] [address] #### CBC, ADIFF, ANEU #### [address] [address] MCV (RBC) [Entitic vol] 90.5 fL Normal 80.0-94.0 A [facility] ([place]) Comment on above: Performed By: #### G FR, BMP #### [address] [address] #### CBC, ADIFF, ANEU #### [address] [address] Platelet mean volume (Bld) [Entitic vol] 7.9 fL Normal 7.4-10.4 [facility] ([place] Comment on above: Performed By: #### G FR, BMP #### [place] [address] #### CBC, ADIFF, ANEU #### [address] [address] Platelets (Bld) [#/Vol] 216 10 3/mcL Normal 130-400 [facility] ([place] Comment on above: Performed By: #### Taco FR, BMP #### [place] [address] #### CBC, ADIFF, ANEU #### [address] [address] RBC (Bld) [#/Vol] 4.56 10 6/mcL Normal 4.20-5.40 [facility] ([place]) Comment on above: Performed By: #### Taco FR, BMP #### [place] [address] #### CBC, ADIFF, ANEU #### [address] [address] WBC (Bld) [#/Vol] 5.80 10 3/mcL Normal 4.60-10.80 [facility] ([place]) Comment on above: Performed By: #### G FR, BMP #### [place] [address] #### CBC, ADIFF, ANEU #### [address] [address] [address] ABDOMEN/PELVIS W/O CONTRA [place] 12-13-2019 CT ABDOMEN/PELVIS W/O CONTRAST ORIGINAL CT [...] 12/13/2019 3:36:55 PM Ordering Provider:Fermin Turner Normal [facility] ([place]) UAon 12-13-2019 Color (U) Light yellow Normal [facility] ([place] Comment on above: Performed By: #### U AMICAO UA #### [address] [address] Glucose (U) [Mass/Vol] 500 mg/dL Abnormal Negative [facility] ([place]) Comment on above: Performed By: #### U AMICAO, UA #### [address] [address] Ketones Ql (U) Negative Normal Negative [facility] ([place] Comment on above: Performed By: #### U AMICAO, UA #### [place] [id number] [address] [place] [address] UA Appear Slightly Cloudy Abnormal Clear [facility] ([place] Comment on above: Performed By: #### U AMICAO, UA #### [address] [address] UA Blood Large Abnormal Negative [facility] ([place] Comment on above: Performed By: #### U AMICAO, UA #### [place] [address] UA Leuk Est Negative Normal Negative [facility] ([place] Comment on above: Performed By: #### U AMICAO, UA #### [place] [address] UA Nitrite Negative Normal Negative [facility] ([place] Comment on above: Performed By: #### U AMICAO, UA #### [place] [address] UA pH 5.0 Normal 5.0 - 8.0 [facility] ([place] Comment on above: Performed By: #### U AMICAO, UA #### [place] [address] UA Protein Negative Normal Negative [facility] ([place] Comment on above: Performed By: #### U AMICAO, UA #### [place] [address] UA Spec Grav <=1.005 Abnormal 1.015-1.02 5 [facility] ([place] Comment on above: Performed By: #### U AMICAO, UA #### [place] [address] UA Specimen Type Clean Catch Normal [facility] ([place] Comment on above: Performed By: #### U AMICAO, UA #### [place] [address] UA Urobilinogen 0.2 E.U./dL Normal 0.2-1.0 [facility] ([place] Comment on above: Performed By: #### U AMICAO, UA #### [place] [address] Urobilinogen Qn (U) Negative Normal Negative P[facility] to [facility] ([place]) Comment on above: Performed By: #### U AMICAO, UA #### [place] [address] CNPLeda 09-05-2019 CNPN Telephone (PREANME) TERRANCE BRAR ([id number]) 1965 F Date Time Provider Department 09/05/19 CAITY BURDEN (JED) PREANME During your visit today, we recorded the following information about you: Caity Burden APRN.[facility] 09/05/2019 9:53 AM Signed Notifying surgeon's office and PCP, pt's pre-op A1c 14.4. Pt is a IDDM, last A1c 13.0 07/13/2019. Please advise. She is scheduled for LAPAROSCOPIC INCISIONAL RECURRENT HERNIA REPAIR W/ MESH REDUCIBLE ADULT With Dr. Dee 09/11/2019. Caity Burden APRN.[facility] 09/05/2019 9:59 AM Signed Also noted to be have TSH level of 38.7, calcium 11.4, sodium 130. Coco Nur CMA, [place] 09/05/2019 10:20 AM Addendum Patient was discharged from practice due to many no shows. She no longer has a PCP. See phone encounter on 07/05/2019. BESSIE No APRN.[facility] 09/05/2019 2:46 PM Signed Spoke with pt and reviewed abnormal labs and that pt no longer has a [facility] PCP due to no shows. Encouraged pt to establish with another PCP [facility] to have the labs addressed and medication adjustments. Connie Colon PA-C 09/06/2019 2:26 PM Signed Anam Flanagan (Jed) Bertram; Anitha Domingo LPN; Red Garcia 16 [...] surgery. Controlling her diabetes mellitus will require fpc commitment on her part to keep appointments, [...] can occur in [facility] Carlee Valencia III MD Allergies As [...] 12/07/2008 More... Routine General Medical Examination at [facility]*12/10/2008 06/03/2015 More... Benign neoplasm of colon [...] Status:Closed by [facility] NUR CMA on 09/11/19 [facility] CNCOon 03-11-2018 CNCO Letter Text [facility] [address]To[address] [facility] [address]Skol: [phone] Flaxucw E. Shafer, [facility] 2017[facility] Centerneil Brar[address] [facility] [address]Dear Terrance Brar,We missed seeing you for your scheduled appointment with Dr. Calixto on03/08/18 at the [facility] [place].Our goal is to offer the best possible care to our patients, so we areconcerned when you are unable to keep a scheduled appointment.Please call us at [phone] so that we can reschedule your appointment fora day and time that will work for you.If you find it difficult to keep your appointment, please notify our officeat least 24 hours in advance so that we may reschedule your appointment.We are glad that you have chosen [facility] for yourcardiovascular needs and hope to continue serving you in the future.Sincerely,Mary Alice Calixto MD(Signed electronically to expedite mailing) Normal [facility] Office Visit: UC: yesica Butler OM 07-28-2017 Fall risk assessment No Invalid Interpretation Code [facility] Work Phone: Protein mass conc yes Invalid Interpretation Code [facility] Work Phone: Protein mass conc Done Invalid Interpretation Code [facility] Work Phone: Tobacco smoking status NHIS Current every day smoker Invalid Interpretation Code [facility] Work Phone: Lab Report: Culture, Urineon 02-22-2015 CUUR . Invalid Interpretation Code [facility] Work Phone: Lab Report: (P) Urinalysis, Completeon 02-20-2015 Specific gravity Refractometry Relative Density (U) 1.015 Invalid Interpretation Code 1.002-1.03 0 [facility] Work Phone: Lab Report: BNP,B-Type NATRI URETIC PEPTIDEon 02-20-2015 Natriuretic peptide B mass conc (Bld) 8.6 pg/mL Invalid Interpretation Code 0-100 [facility] Work Phone: Lab Report: Basic Metabolic Profile (BMP)on 02-20-2015 Anion gap 4 molar conc 9 Invalid Interpretation Code 5-15 [facility] Work Phone: Calcium mass conc 8.3 mg/dL Low 8.5-10.1 [facility] Work Phone: Chloride molar conc 100 mmol/L Invalid Interpretation Code 98-107 [facility] Work Phone: CO2 ppres (BldV) 27.0 mmol/L Invalid Interpretation Code 21.0-32.0 [facility] Work Phone: Creatinine mass conc 1.2 mg/dL High 0.6-1.0 [facility] Work Phone: EST GFR - AA 61 mL/min Invalid Interpretation Code >60 [facility] Work Phone: GFR/1.73 sq M predicted among non-blacks MDRD vol rate/area (S/P/Bld) 50 mL/min/{1.73_m2} Low >60 [facility] Work Phone: Glucose mass conc 170 mg/dL High 70-110 [facility] Work Phone: Potassium molar conc 3.3 mmol/L Low 3.5-5.1 [facility] Work Phone: Sodium molar conc 136 mmol/L Invalid Interpretation Code 136-145 [facility] Work Phone: [phone] Urea nitrogen mass conc 10 mg/dL Invalid Interpretation Code 7-18 [facility] Work Phone: [phone] Urea nitrogen/Creatinine mass ratio 8.3 RATIO Low 10-20 [facility] Work Phone: [phone] Lab Report: CBC W/Diff, Auto matedon 02-20-2015 Absolute Neut 5.3 X10 3/UL Invalid Interpretation Code 2.0-7.7 [facility] Work Phone: [phone] Basophils/100 WBC Auto (Bld) 0.5 % Invalid Interpretation Code 0-1 [facility] Work Phone: [phone] Eosinophils/100 WBC Auto (Bld) 1.5 % Invalid Interpretation Code 0-5 [facility] Work Phone: [phone] Erythrocyte distribution width Auto Ratio (RBC) 47.5 fL High 35.1-43.9 [facility] Work Phone: [phone] Hematocrit Auto Volume Fraction (Bld) 36.1 % Low 37-47 [facility] Work Phone: [phone] Hemoglobin mass conc (Bld) 11.5 g/dL Low 12.0-15.0 [facility] Work Phone: [phone] Lymphocytes Auto #/vol (Bld) 1.54 X10 3/UL Invalid Interpretation Code 0.83-4.51 [facility] Work Phone: [phone] Lymphocytes/100 WBC Auto (Bld) 20.7 % Invalid Interpretation Code 19-41 [facility] Work Phone: [phone] MCH Auto Entitic mass (RBC) 29.9 pg Invalid Interpretation Code 27.0-32.0 [facility] Work Phone: [phone] MCHC Auto mass conc (RBC) 31.9 G/GL Low 32-36 [facility] Work Phone: [phone] MCV Auto Entitic volume (RBC) 93.8 fL Invalid Interpretation Code 81-99 [facility] Work Phone: Monocytes/100 WBC Auto (Bld) 5.5 % Invalid Interpretation Code 0-10 [facility] Work Phone: Neutrophils/100 WBC Auto (Bld) 71.5 % High 47-70 [facility] Work Phone: Platelet mean volume Fercho-Jana Entitic volume (Bld) 9.9 fL Invalid Interpretation Code 6.2-12.0 [facility] Work Phone: Platelets Auto #/vol (Bld) 259 10*3/mm3 Invalid Interpretation Code 150-450 [facility] Work Phone: RBC Auto #/vol (Bld) 3.85 10*6/uL Low 4.2-5.4 [facility] Work Phone: WBC Auto #/vol (Bld) 7.4 10*3/uL Invalid Interpretation Code 4.4-11.0 [facility] Work Phone: Lab Report: Thyroid Stim Hor ivory (TSH)on 02-20-2015 Thyrotropin Qn 79.90 u[iU]/mL High 0.358-3.74 [facility] Work Phone: Lab Report: Troponin-Ion Troponin I.cardiac mass conc ng/mL Invalid Interpretation Code <0.06 [facility] Work Phone: Lab Report: A1Con 08-11-2010 Hemoglobin A1c/Hemoglobin.total mass fraction (Bld) 9.6 % High 4.0-6.3 [facility] Work Phone: Lab Report: CMPon 08-11-2010 Albumin mass conc 3.6 g/dL Normal 3.4-5.0 [facility] Work Phone: ALP enzyme act/vol (Bld) 52 U/L Normal 50-136 [facility] Work Phone: ALT enzyme act/vol 31 U/L Normal 12-78 [facility] Work Phone: AST enzyme act/vol 14 U/L Low 15-37 [facility] Work Phone: Bilirubin mass conc 0.60 mg/dL Normal 0.00-1.00 [facility] Work Phone: Lab Report: LIPIDon 1820 10 Cholesterol in HDL mass conc 28 mg/dL Low [facility] Work Phone: Cholesterol in LDL mass conc 106 mg/dL Normal 0-130 [facility] Work Phone: Cholesterol mass conc 189 mg/dL Normal 200 [facility] Work Phone: Lipoprotein.pre-beta mass conc 55 mg/dL High 5-40 [facility] Work Phone: Triglyceride mass conc 275 mg/dL High [facility] Work Phone: Culture, urine Bacteria identified Cx Nom (U) Negative [facility] Work Phone: Bacteria identified Cx Nom (U) Mixed Gram Pos & Gram Neg Org [facility] Work Phone: Bacteria identified Cx Nom (U) Culture exhibits no growth. [facility] Work Phone: Vital Signs Date Time Vital Sign Value Performing Clinician Laure graf 03-16-2025 07:49-0400 Body height 152.[address] Lizet Linares MD Work Phone: [facility] 01-30-2025 13:21-0400 Body mass index (BMI) [Ratio] 39 kg/m2 Dr. Lizet Linares MD Work Phone: [facility] 01-30-2025 13:21-0400 Body weight 90.[address] Lizet Linares MD Work Phone: [facility] 01-30-2025 13:21-0400 Diastolic blood pressure 75 mm[Hg] Dr. Lizet Linares MD Work Phone: [facility] 01-30-2025 13:21-0400 Heart rate 81 /min Dr. Lizet Linares MD Work Phone: [facility] 01-30-2025 13:21-0400 Respiratory rate 14 /min Dr. Lizet Linares MD Work Phone: [facility] 01-30-2025 13:21-0400 SaO2% (BldA) [Mass fraction] 95 % Dr. Lizet Linares MD Work Phone: [facility] 01-30-2025 13:21-0400 Systolic blood pressure 117 mm[Hg] Dr. Lizet Linares MD Work Phone: [facility] 01-22-2025 14:00-0400 Diastolic blood pressure 89 mm[Hg] Dr. Lizet Linares MD Work Phone: [facility] 01-22-2025 14:00-0400 Heart rate 78 /min Dr. Lizet Linares MD Work Phone: [facility] 01-22-2025 14:00-0400 Respiratory rate 18 /min Dr. Lizet Linares MD Work Phone: [facility] 01-22-2025 14:00-0400 SaO2% (BldA) [Mass fraction] 98 % Dr. Lizet Linares MD Work Phone: [facility] 01-22-2025 14:00-0400 Systolic blood pressure 117 mm[Hg] Dr. Lizet Linares MD Work Phone: [facility] 01-22-2025 13:50-0400 Body temperature 98.2 [degF] Dr. Lizet Linares MD Work Phone: [facility] 01-22-2025 10:42-0400 Body height 152.[address] Lizet Linares MD Work Phone: [facility] 01-22-2025 10:42-0400 Body mass index (BMI) [Ratio] 39.3 kg/m2 Dr. Lizet Linares MD Work Phone: [facility] 01-22-2025 10:42-0400 Body weight 91.[address] Lizet Linares MD Work Phone: [facility] 10-24-2024 17:21-0500 Body temperature 97.7 [degF] Dr. Lizet Linares MD Work Phone: [facility] 10-24-2024 17:21-0500 Diastolic blood pressure 63 mm[Hg] Dr. Lizet Linares MD Work Phone: [facility] 10-24-2024 17:21-0500 Heart rate 78 /min Dr. Lizet Linares MD Work Phone: [facility] 10-24-2024 17:21-0500 Respiratory rate 16 /min Dr. Lizet Linares MD Work Phone: [facility] 10-24-2024 17:21-0500 SaO2% (BldA) [Mass fraction] 96 % Dr. Lizet Linares MD Work Phone: [facility] 10-24-2024 17:21-0500 Systolic blood pressure 139 mm[Hg] Dr. Lizet Linares MD Work Phone: [facility] 10-24-2024 11:09-0500 Body mass index (BMI) [Ratio] 39.2 kg/m2 Dr. Lizet Linares MD Work Phone: [facility] 10-24-2024 11:09-0500 Body weight [address] Lizet Linares MD Work Phone: [facility] 01-20-2024 05:27-0400 Body temperature 98.6 [degF] Dr. Jarred Lopez Work Phone: [facility] 01-20-2024 05:27-0400 Diastolic blood pressure 58 mm[Hg] Dr. Jarred Lopez Work Phone: 1(440)577-564027 [place] [address] 01-20-2024 05:27-0400 Heart rate 76 /min Dr. Jarred Lopez Work Phone: 8(440)986-830627 [place] [address] 01-20-2024 05:27-0400 Respiratory rate 13 /min Dr. Jarred Lopez Work Phone: 1(810)187-386527 [place] [address] 01-20-2024 05:27-0400 SaO2% (BldA) [Mass fraction] 94 % Dr. Jarred Lopez Work Phone: 0(085)444-927427 [place] [address] 01-20-2024 05:27-0400 Systolic blood pressure 127 mm[Hg] Dr. Jarred Lopez Work Phone: 7(695)264-370927 [place] [address] 01-20-2024 01:04-0400 Body height 152.[address] Jarred Lopez Work Phone: 1(069)293-722627 [place] [address] 01-20-2024 01:04-0400 Body mass index (BMI) [Ratio] 36.7 kg/m2 Dr. Jarred Lopez Work Phone: 7(059)156-042327 [place] [address] 01-20-2024 01:04-0400 Body weight 85.[address] Jarred Lopez Work Phone: 0(164)004-213927 [place] [address] 01-05-2024 13:45-0400 Body temperature 98.1 [degF] Dr. Jarred Lopez Work Phone: 2(457)414-514627 [place] [address] 01-05-2024 13:45-0400 Diastolic blood pressure 56 mm[Hg] Dr. Jarred Lopez Work Phone: 8(803)022-318327 [place] [address] 01-05-2024 13:45-0400 Heart rate 78 /min Dr. Jarred Lopez Work Phone: 3(371)945-170027 [place] [address] 01-05-2024 13:45-0400 Respiratory rate 18 /min Dr. Jarred Lopez Work Phone: 7(533)827-703227 [place] [address] 01-05-2024 13:45-0400 SaO2% (BldA) [Mass fraction] 96 % Dr. Jarred Lopez Work Phone: 6(911)542-711473 [place] [address] 01-05-2024 13:45-0400 Systolic blood pressure 96 mm[Hg] Dr. Jarred Lopez Work Phone: 2(042)552-596327 [place] [address] 01-04-2024 03:05-0400 Body mass index (BMI) [Ratio] 32.8 kg/m2 Dr. Jarred Lopez Work Phone: 1(976)697-637927 [place] [address] 01-04-2024 03:05-0400 Body weight 76.[address] Jarred Lopez Work Phone: 4(985)435-210327 [place] [address] 01-03-2024 22:31-0400 Inhaled oxygen flow rate 2 L/min Dr. Jarred Lopez Work Phone: 3(600)535-375227 [place] [address] 01-03-2024 12:42-0400 Diastolic blood pressure 64 mm[Hg] Dr. Jarred Lopez Work Phone: 8(835)478-811227 [place] [address] 01-03-2024 12:42-0400 Heart rate 88 /min Dr. Jarred Lopez Work Phone: 8(716)001-630227 [place] [address] 01-03-2024 12:42-0400 Systolic blood pressure 127 mm[Hg] Dr. Jarred Lopez Work Phone: 3(145)496-804627 [place] [address] 01-03-2024 11:52-0400 Body temperature 98 [degF] Dr. Jarred Lopez Work Phone: 5(684)343-046927 [place] [address] 01-03-2024 11:52-0400 Respiratory rate 16 /min Dr. Jarred Lopez Work Phone: 2(251)621-049327 [place] [address] 01-03-2024 11:52-0400 SaO2% (BldA) [Mass fraction] 94 % Dr. Jarred Lopez Work Phone: 9(866)846-058927 [place] [address] 01-03-2024 05:53-0400 Body mass index (BMI) [Ratio] 32.7 kg/m2 Dr. Jarred Lopez Work Phone: 8(837)331-453027 [place] [address] 01-03-2024 05:53-0400 Body weight [address] Jarred Lopez Work Phone: 3(447)188-670727 [place] [address] 01-02-2024 14:55-0400 Body height 152.[address] Jarred Lopez Work Phone: 5(705)353-133127 [place] [address] 01-01-2024 22:20-0500 Body temperature 97.6 [degF] Dr. Jarred Lopez Work Phone: 5(017)548-490327 [place] [address] 01-01-2024 22:20-0500 Diastolic blood pressure 62 mm[Hg] Dr. Jarred Lopez Work Phone: 5(099)773-863727 [place] [address] 01-01-2024 22:20-0500 Heart rate 84 /min Dr. Jarrde Lopez Work Phone: 2(091)083-274827 [place] [address] 01-01-2024 22:20-0500 Respiratory rate 13 /min Dr. Jarred Lopez Work Phone: 2(140)727-059727 [place] [address] 01-01-2024 22:20-0500 SaO2% (BldA) [Mass fraction] 99 % Dr. Jarred Lopez Work Phone: 8(960)812-724027 [place] [address] 01-01-2024 22:20-0500 Systolic blood pressure 146 mm[Hg] Dr. Jarred Lopez Work Phone: 3(612)155-391427 [place] [address] 01-01-2024 18:32-0500 Body height 152.[address] Jarred Lopez Work Phone: 2(607)737-413427 [place] [address] 01-01-2024 18:32-0500 Body mass index (BMI) [Ratio] 33.1 kg/m2 Dr. Jarred Lopez Work Phone: 4(041)273-747327 [place] [address] 01-01-2024 18:32-0500 Body weight [address] Jarred Lopez Work Phone: 1(900)682-030627 [place] [address] 11-24-2023 15:05-0500 Body temperature 98.5 [degF] Dr. Jarred Lopez Work Phone: 6(334)679-857427 [place] [address] 11-24-2023 15:05-0500 Diastolic blood pressure 63 mm[Hg] Dr. Jarred Lopez Work Phone: 0(311)535-968573 [place] [address] 11-24-2023 15:05-0500 Heart rate 66 /min Dr. Jarred Lopez Work Phone: 2(831)340-956627 [place] [address] 11-24-2023 15:05-0500 Respiratory rate 16 /min Dr. Jarred Lopez Work Phone: 4(028)601-186227 [place] [address] 11-24-2023 15:05-0500 SaO2% (BldA) [Mass fraction] 96 % Dr. Jarred Lopez Work Phone: 1(002)271-695527 [place] [address] 11-24-2023 15:05-0500 Systolic blood pressure 117 mm[Hg] Dr. Jarred Lopez Work Phone: 3(620)741-078027 [place] [address] 11-24-2023 06:00-0500 Body mass index (BMI) [Ratio] 35.9 kg/m2 Dr. Jarred Lopez Work Phone: 7(099)986-923427 [place] [address] 11-24-2023 06:00-0500 Body weight 83.[address] Jarred Lopez Work Phone: 0(930)616-132627 [place] [address] 11-19-2023 10:27-0500 Body temperature 98.1 [degF] Dr. Jarred Lopez Work Phone: 5(732)224-158427 [place] [address] 11-19-2023 10:27-0500 Diastolic blood pressure 74 mm[Hg] Dr. Jarred Lopez Work Phone: 2(634)414-606227 [place] [address] 11-19-2023 10:27-0500 Heart rate 72 /min Dr. Jarred Lopez Work Phone: 5(135)273-955927 [place] [address] 11-19-2023 10:27-0500 Respiratory rate 15 /min Dr. Jarred Lopez Work Phone: 5(067)258-328027 [place] [address] 11-19-2023 10:27-0500 SaO2% (BldA) [Mass fraction] 99 % Dr. Jarred Lopez Work Phone: 0(175)229-616927 [place] [address] 01-26-2024 10:27-0500 Systolic blood pressure 134 mm[Hg] Dr. Jarred Lopez Work Phone: [facility] 11-19-2023 08:20-0500 Body height 152.[address] Jarred Lopez Work Phone: [facility] 11-19-2023 08:20-0500 Body mass index (BMI) [Ratio] 36.9 kg/m2 Dr. Jarred Lopez Work Phone: [facility] 11-19-2023 08:20-0500 Body weight 85.[address] Jarred Lopez Work Phone: [facility] 06-10-2023 16:53-0400 Respiratory rate 16 /min Dr. Ganesh Garcia Work Phone: 9(893)182-784242 [address] 06-10-2023 14:57-0400 Body height 152.[address] Ganesh Garcia Work Phone: 9(948)300-750508 [place] [address] 06-10-2023 14:57-0400 Body temperature 96.4 [degF] Dr. Ganesh Garcia Work Phone: 7(310)745-092508 [place] [address] 06-10-2023 14:57-0400 Diastolic blood pressure 88 mm[Hg] Dr. Ganesh Garcia Work Phone: 8(295)030-828008 [place] [address] 06-10-2023 14:57-0400 Heart rate 93 /min Dr. Ganesh Garcia Work Phone: 3(538)938-702808 [place] [address] 06-10-2023 14:57-0400 SaO2% (BldA) [Mass fraction] 100 % Dr. Ganesh Garcia Work Phone: 5(761)488-707642 [address] 06-10-2023 14:57-0400 Systolic blood pressure 119 mm[Hg] Dr. Ganesh Garcia Work Phone: 7(194)141-088308 [place] [address] 06-06-2023 20:09-0400 Diastolic blood pressure 97 mm[Hg] Dr. Ganesh Garcia Work Phone: 5(298)962-407142 [address] 06-06-2023 20:09-0400 Heart rate 71 /min Dr. Ganesh Garcia Work Phone: 8(706)145-650242 [address] 06-06-2023 20:09-0400 Respiratory rate 16 /min Dr. Ganesh Garcia Work Phone: 6(279)335-784108 [place] [address] 06-06-2023 20:09-0400 SaO2% (BldA) [Mass fraction] 97 % Dr. Ganesh Garcia Work Phone: 7(759)241-543608 [place] [address] 06-06-2023 20:09-0400 Systolic blood pressure 178 mm[Hg] Dr. Ganesh Garcia Work Phone: 6(268)077-610308 [place] [address] 06-06-2023 18:42-0400 Body mass index (BMI) [Ratio] 38 kg/m2 Dr. Ganesh Garcia Work Phone: 4(904)751-391908 [place] [address] 06-06-2023 18:42-0400 Body weight [address] Ganesh Garcia Work Phone: 1(740)277-524508 [place] [address] 06-06-2023 17:48-0400 Body height 152.[address] Ganesh Garcia Work Phone: 6(808)874-532108 [place] [address] 06-06-2023 17:48-0400 Body temperature 96.9 [degF] Dr. Ganesh Garcia Work Phone: 2(202)832-785208 [place] [address] 06-04-2023 21:40-0400 Diastolic blood pressure 58 mm[Hg] Dr. Ganesh Garcia Work Phone: 8(419)286-111408 [place] [address] 06-04-2023 21:40-0400 Heart rate 85 /min Dr. Ganesh Garcia Work Phone: 1(897)544-958008 [place] [address] 06-04-2023 21:40-0400 Respiratory rate 18 /min Dr. Ganesh Garcia Work Phone: 3(646)551-163408 [place] [address] 06-04-2023 21:40-0400 SaO2% (BldA) [Mass fraction] 93 % Dr. Ganesh Garcia Work Phone: 1(951)326-912608 [place] [address] 06-04-2023 21:40-0400 Systolic blood pressure 118 mm[Hg] Dr. Ganesh Garcia Work Phone: 4(198)305-269908 [place] [address] 06-04-2023 19:28-0400 Body mass index (BMI) [Ratio] 37.9 kg/m2 Dr. Ganesh Garcia Work Phone: 2(097)659-535008 [place] [address] 06-04-2023 19:28-0400 Body weight 87.[address] Ganesh Garcia Work Phone: [facility] 06-04-2023 13:49-0400 Body height 152.[address] Ganesh Garcia Work Phone: [facility] 06-04-2023 13:49-0400 Body temperature 96.6 [degF] Dr. Ganesh Garcia Work Phone: [facility] 04-23-2023 14:35-0400 Body temperature 100 [degF] Vernon Zane CARE AIDE.[employer]ESS OPERATOR Work Phone: [facility] 04-23-2023 14:35-0400 Body weight 81.1 kg Vernon Zane CARE AIDE.[employer] PRESS OPERATOR Work Phone: [facility] 04-23-2023 14:35-0400 Diastolic blood pressure 82 mm[Hg] Vernon Zane CARE AIDE.[employer] PRESS OPERATOR Work Phone: [facility] 04-23-2023 14:35-0400 Heart rate 94 /min Vernon Zane CARE AIDE.[employer] PRESS OPERATOR Work Phone: [facility] 04-23-2023 14:35-0400 Respiratory rate 21 /min Vernon Zane CARE AIDE.[employer] PRESS OPERATOR Work Phone: [facility] 04-23-2023 14:35-0400 SaO2% (BldA) [Mass fraction] 99 % Vernon Zane CARE AIDE.[employer] PRESS OPERATOR Work Phone: [facility] 04-23-2023 14:35-0400 Systolic blood pressure 130 mm[Hg] Vernon Zane CARE AIDE.[employer] PRESS OPERATOR Work Phone: [facility] 04-07-2023 13:09-0400 Body height 152.4 cm Dwayne Lopez MD Work Phone: [facility] 04-07-2023 13:090400 Body weight 81.65 kg Dwayne Lopez MD Work Phone: [facility] 04-07-2023 13:09-0400 Diastolic blood pressure 74 mm[Hg] Dwayne Lopez MD Work Phone: [facility] 04-07-2023 13:09-0400 Heart rate 80 /min Dwayne Lopez MD Work Phone: [facility] 04-07-2023 13:09-0400 Respiratory rate 16 /min Dwayne Lopez MD Work Phone: [facility] 04-07-2023 13:09-0400 Systolic blood pressure 112 mm[Hg] Dwayne Lopez MD Work Phone: [facility] 03-28-2023 09:08-0400 Body mass index (BMI) [Ratio] 35.6 kg/m2 Dr. Lizet Linares Work Phone: [facility] 03-28-2023 09:08-0400 Body weight 82.[address] Lizet Linares Work Phone: [facility] 03-28-2023 08:40-0400 Body height 152.[address] Lizet Linares Work Phone: [facility] 03-28-2023 08:40-0400 Body temperature 95 [degF] Dr. Lizet Linares Work Phone: [facility] 03-28-2023 08:40-0400 Diastolic blood pressure 76 mm[Hg] Dr. Lizet Linares Work Phone: [facility] 03-28-2023 08:40-0400 Heart rate 122 /min Dr. Lizet Linares Work Phone: [facility] 03-28-2023 08:40-0400 Respiratory rate 18 /min Dr. Lizet Linares Work Phone: [facility] 03-28-2023 08:40-0400 SaO2% (BldA) [Mass fraction] 100 % Dr. Lizet Linares Work Phone: [facility] 03-28-2023 08:40-0400 Systolic blood pressure 133 mm[Hg] Dr. Lizet Linares Work Phone: [facility] 03-24-2023 10:18-0400 Body weight 83.92 kg Dwayne Lopez MD Work Phone: [facility] 03-24-2023 10:18-0400 Diastolic blood pressure 64 mm[Hg] Dwayne Lopez MD Work Phone: [facility] 03-24-2023 10:18-0400 Heart rate 84 /min Dwayne Lopez MD Work Phone: [facility] 03-24-2023 10:18-0400 Respiratory rate 16 /min Dwayne Lopez MD Work Phone: [facility] 03-24-2023 10:18-0400 Systolic blood pressure 110 mm[Hg] Dwayne Lopez MD Work Phone: [facility] 02-11-2023 13:05-0400 Body height 152.[address] Lizet Linares Work Phone: [facility] 02-11-2023 13:05-0400 Body mass index (BMI) [Ratio] 35.9 kg/m2 Dr. Lizet Linares Work Phone: [facility] 02-11-2023 13:05-0400 Body weight 83.[address] Lizet Linares Work Phone: [facility] 02-11-2023 13:05-0400 Diastolic blood pressure 83 mm[Hg] Dr. Lizet Linares Work Phone: [facility] 02-11-2023 13:05-0400 Heart rate 88 /min Dr. Lizet Linares Work Phone: [facility] 02-11-2023 13:05-0400 Respiratory rate 18 /min Dr. Lizet Linares Work Phone: [facility] 02-11-2023 13:05-0400 SaO2% (BldA) [Mass fraction] 99 % Dr. Lizet Linares Work Phone: [facility] 02-11-2023 13:05-0400 Systolic blood pressure 152 mm[Hg] Dr. Lizet Linares Work Phone: [facility] 01-30-2023 00:39-0400 Body temperature 98 [degF] Dr. Lizet Linares Work Phone: [facility] 01-30-2023 00:39-0400 Diastolic blood pressure 85 mm[Hg] Dr. Lizet Linares Work Phone: [facility] 01-30-2023 00:39-0400 Heart rate 85 /min Dr. Lizet Linares Work Phone: [facility] 01-30-2023 00:39-0400 Respiratory rate 19 /min Dr. Lizet Linares Work Phone: [facility] 01-30-2023 00:39-0400 SaO2% (BldA) [Mass fraction] 97 % Dr. Lizet Linares Work Phone: [facility] 01-30-2023 00:39-0400 Systolic blood pressure 159 mm[Hg] Dr. Lizet Linares Work Phone: [facility] 01-29-2023 22:02-0400 Body mass index (BMI) [Ratio] 36.6 kg/m2 Dr. Lizet Linares Work Phone: [facility] 01-29-2023 22:02-0400 Body weight 85.[address] Lizet Linares Work Phone: [facility] 01-29-2023 21:18-0400 Body height 152.[address] Lizet Linares Work Phone: [facility] 01-07-2023 15:19-0400 Body mass index (BMI) [Ratio] 36.2 kg/m2 Dr. Ganesh Garcia Work Phone: 8(032)223-445708 [place] [address] 01-07-2023 15:19-0400 Body weight 84.[address] Ganesh Garcia Work Phone: 0(679)804-228508 [place] [address] 01-07-2023 15:17-0400 Body height 152.[address] Ganesh Garcia Work Phone: 4(601)200-735108 [place] [address] 01-07-2023 15:17-0400 Body temperature 96 [degF] Dr. Ganesh Garcia Work Phone: 5(438)793-074808 [place] [address] 01-07-2023 15:17-0400 Diastolic blood pressure 70 mm[Hg] Dr. Ganesh Garcia Work Phone: 6(537)747-143408 [place] [address] 01-07-2023 15:17-0400 Heart rate 95 /min Dr. Ganesh Garcia Work Phone: 4(657)872-563508 [place] [address] 01-07-2023 15:17-0400 Respiratory rate 18 /min Dr. Ganesh Garcia Work Phone: 8(970)339-129408 [place] [address] 01-07-2023 15:17-0400 SaO2% (BldA) [Mass fraction] 99 % Dr. Ganesh Garcia Work Phone: 4(863)894-041908 [place] [address] 01-07-2023 15:17-0400 Systolic blood pressure 143 mm[Hg] Dr. Ganesh Garcia Work Phone: 3(248)658-216908 [place] [address] 01-06-2023 20:30-0400 Diastolic blood pressure 59 mm[Hg] Dr. Ganesh Garcia Work Phone: 3(967)785-757408 [place] [address] 01-06-2023 20:30-0400 Heart rate 84 /min Dr. Ganesh Garcia Work Phone: 4(618)533-857008 [place] [address] 01-06-2023 20:30-0400 Respiratory rate 19 /min Dr. Ganesh Garcia Work Phone: 4(847)905-520808 [place] [address] 01-06-2023 20:30-0400 SaO2% (BldA) [Mass fraction] 94 % Dr. Ganesh Garcia Work Phone: 1(779)939-354808 [place] [address] 01-06-2023 20:30-0400 Systolic blood pressure 145 mm[Hg] Dr. Ganesh Garcia Work Phone: 4(948)174-091308 [place] [address] 01-06-2023 17:40-0400 Body mass index (BMI) [Ratio] 36 kg/m2 Dr. Ganesh Garcia Work Phone: 8(527)415-439908 [place] [address] 01-06-2023 17:40-0400 Body weight 83.[address] Ganesh Garcia Work Phone: 6(768)006-133708 [place] [address] 01-06-2023 17:27-0400 Body temperature 98 [degF] Dr. Ganesh Garcia Work Phone: 1(240)991-653108 [place] [address] 01-06-2023 17:24-0400 Body height 152.[address] Ganesh Garcia Work Phone: 7(174)019-396108 [place] [address] 11-05-2022 05:00-0500 Diastolic blood pressure 75 mm[Hg] Dr. Ganesh Garcia Work Phone: 0(901)914-931308 [place] [address] 11-05-2022 05:00-0500 Heart rate 89 /min Dr. Ganesh Garcia Work Phone: 1(715)161-487508 [place] [address] 11-05-2022 05:00-0500 Respiratory rate 19 /min Dr. Ganesh Garcia Work Phone: 9(843)364-636808 [place] [address] 11-05-2022 05:00-0500 SaO2% (BldA) [Mass fraction] 95 % Dr. Ganesh Garcia Work Phone: 8(038)863-322908 [place] [address] 11-05-2022 05:00-0500 Systolic blood pressure 138 mm[Hg] Dr. Ganesh Garcia Work Phone: 1(199)946-280808 [place] [address] 11-05-2022 01:44-0500 Body height 152.[address] Ganesh Garcia Work Phone: 4(216)208-441208 [place] [address] 11-05-2022 01:44-0500 Body mass index (BMI) [Ratio] 33.7 kg/m2 Dr. Ganesh Garcia Work Phone: 6(365)748-078308 [place] [address] 11-05-2022 01:44-0500 Body temperature 96.7 [degF] Dr. Ganesh Garcia Work Phone: 6(608)562-791108 [place] [address] 11-05-2022 01:44-0500 Body weight 78.[address] Ganesh Garcia Work Phone: 2(841)417-758908 [place] [address] 10-09-2022 04:11-0500 Diastolic blood pressure 67 mm[Hg] Dr. Ganesh Garcia Work Phone: 3(998)390-350742 [address] 10-09-2022 04:11-0500 Heart rate 68 /min Dr. Ganehs Garcia Work Phone: 3(889)348-412142 [address] 10-09-2022 04:11-0500 Respiratory rate 18 /min Dr. Ganesh Garcia Work Phone: 6(832)478-698442 [address] 10-09-2022 04:11-0500 SaO2% (BldA) [Mass fraction] 97 % Dr. Ganesh Garcia Work Phone: 6(261)311-893142 [address] 10-09-2022 04:11-0500 Systolic blood pressure 100 mm[Hg] Dr. Ganesh Garcia Work Phone: 1(804)558-882642 [address] 10-09-2022 01:29-0500 Body height 152.[address] Ganesh Garcia Work Phone: 5(896)642-290390 [place] [address] Work Phone: 10-09-2022 01:29-0500 Body mass index (BMI) [Ratio] 34.3 kg/m2 Dr. Ganesh Garcia Work Phone: 5(927)382-541342 [address] 10-09-2022 01:29-0500 Body temperature 98.6 [degF] Dr. Ganesh Garcia Work Phone: 5(746)056-796442 [address] 10-09-2022 01:29-0500 Body weight 79.[address] Ganesh Garcia Work Phone: 1(657)109-720842 [address] 09-09-2022 13:37-0500 Body height 152.[address] Ganesh Garcia Work Phone: 4(352)591-326742 [address] Work Phone: 09-09-2022 13:37-0500 Diastolic blood pressure 71 mm[Hg] Dr. Ganesh Garcia Work Phone: 6(982)510-814942 [address] 09-09-2022 13:37-0500 Heart rate 88 /min Dr. Ganesh Garcia Work Phone: 8(461)383-638790 [place] [address] 09-09-2022 13:37-0500 Respiratory rate 16 /min Dr. Ganesh Garcia Work Phone: 7(958)539-668208 [place] [address] 09-09-2022 13:37-0500 Systolic blood pressure 101 mm[Hg] Dr. Ganesh Garcia Work Phone: 3(753)375-360208 [place] [address] 08-24-2022 07:19-0400 Diastolic blood pressure 49 mm[Hg] Dr. Ganesh Garcia Work Phone: 4(662)175-923408 [place] [address] 08-24-2022 07:19-0400 Heart rate 65 /min Dr. Ganesh Garcia Work Phone: 1(337)724-659608 [place] [address] 08-24-2022 07:19-0400 Respiratory rate 18 /min Dr. Ganesh Garcia Work Phone: 3(795)774-508308 [place] [address] 08-24-2022 07:19-0400 SaO2% (BldA) [Mass fraction] 93 % Dr. Ganesh Garcia Work Phone: 1(585)496-957908 [place] [address] 08-24-2022 07:19-0400 Systolic blood pressure 107 mm[Hg] Dr. Ganesh Garcia Work Phone: 9(199)517-182508 [place] [address] 08-24-2022 05:17-0400 Inhaled oxygen flow rate 1 L/min Dr. Ganesh Garcia Work Phone: 0(797)674-151808 [place] [address] 08-24-2022 03:19-0400 Body height 152.[address] Ganesh Garcia Work Phone: 8(063)607-400308 [place] [address] Work Phone: 08-24-2022 03:19-0400 Body mass index (BMI) [Ratio] 33.4 kg/m2 Dr. Ganesh Garcia Work Phone: 9(745)524-602208 [place] [address] 08-24-2022 03:19-0400 Body temperature 97.3 [degF] Dr. Ganesh Garcia Work Phone: 6(575)010-284308 [place] [address] 08-24-2022 03:19-0400 Body weight 77.[address] Ganesh Garcia Work Phone: 9(525)462-951408 [place] [address] 06-12-2022 14:13-0400 Body height 152.[address] Jarred Lopez Work Phone: [facility] Work Phone: 06-12-2022 14:12-0400 Body mass index (BMI) [Ratio] 34.7 kg/m2 Dr. Jarred Lopez Work Phone: [facility] Work Phone: 06-12-2022 14:12-0400 Body weight 80.[address] Jarred Lopez Work Phone: [facility] Work Phone: 06-12-2022 14:12-0400 Diastolic blood pressure 58 mm[Hg] Dr. Jarred Lopez Work Phone: [facility] Work Phone: 06-12-2022 14:12-0400 Heart rate 68 /min Dr. Jarred Lopez Work Phone: [facility] Work Phone: 06-12-2022 14:12-0400 Respiratory rate 16 /min Dr. Jarred Lopez Work Phone: [facility] Work Phone: 06-12-2022 14:12-0400 Systolic blood pressure 106 mm[Hg] Dr. Jarred Lopez Work Phone: [facility] Work Phone: 05-21-2022 15:00-0400 Heart rate 73 /min Dr. Jarred Lopez Work Phone: [facility] Work Phone: 05-21-2022 14:55-0400 Diastolic blood pressure 71 mm[Hg] Dr. Jarred Lopez Work Phone: [facility] Work Phone: 05-21-2022 14:55-0400 Heart rate 74 /min Dr. Jarred Lopez Work Phone: [facility] Work Phone: 05-21-2022 14:55-0400 Respiratory rate 16 /min Dr. Jarred Lopez Work Phone: [facility] Work Phone: 05-21-2022 14:55-0400 SaO2% (BldA) [Mass fraction] 94 % Dr. Jarred Lopez Work Phone: [facility] Work Phone: 05-21-2022 14:55-0400 Systolic blood pressure 112 mm[Hg] Dr. Jarred Lopez Work Phone: [facility] Work Phone: 05-21-2022 14:44-0400 Inhaled oxygen flow rate 2 L/min Dr. Jarred Lopez Work Phone: [facility] Work Phone: 05-21-2022 11:46-0400 Body temperature 98.2 [degF] Dr. Jarred Lopez Work Phone: [facility] Work Phone: 05-21-2022 06:40-0400 Body height 152.[address] Jarred Lopez Work Phone: [facility] Work Phone: 05-21-2022 06:40-0400 Body mass index (BMI) [Ratio] 36.3 kg/m2 Dr. Jarred Lopez Work Phone: [facility] Work Phone: 05-21-2022 06:40-0400 Body weight 84.[address] Jarred Lopez Work Phone: [facility] Work Phone: 05-21-2022 03:08-0400 Body temperature 97.9 [degF] Dr. Jarred Lopez Work Phone: [facility] Work Phone: 05-21-2022 03:08-0400 Diastolic blood pressure 72 mm[Hg] Dr. Jarred Lopez Work Phone: [facility] Work Phone: 05-21-2022 03:08-0400 Heart rate 77 /min Dr. Jarred Lopez Work Phone: [facility] Work Phone: 05-21-2022 03:08-0400 Inhaled oxygen flow rate 2 L/min Dr. Jarred Lopez Work Phone: [facility] Work Phone: 05-21-2022 03:08-0400 Respiratory rate 19 /min Dr. Jarred Lopez Work Phone: [facility] Work Phone: 05-21-2022 03:08-0400 SaO2% (BldA) [Mass fraction] 96 % Dr. Jarred Lopez Work Phone: [facility] Work Phone: 05-21-2022 03:08-0400 Systolic blood pressure 116 mm[Hg] Dr. Jarred Lopez Work Phone: [facility] Work Phone: 05-20-2022 22:05-0400 Body height 152.[address] Jarred Lopez Work Phone: [facility] Work Phone: 05-20-2022 22:05-0400 Body mass index (BMI) [Ratio] 38.9 kg/m2 Dr. Jarred Lopez Work Phone: [facility] Work Phone: 05-20-2022 22:05-0400 Body weight 90.[address] Jarred Lopez Work Phone: [facility] Work Phone: 05-04-2022 00:00-0400 Diastolic blood pressure 61 mm[Hg] Dr. Jarred Lopez Work Phone: [facility] Work Phone: 05-04-2022 00:00-0400 Heart rate 79 /min Dr. Jarred Lopez Work Phone: [facility] Work Phone: 05-04-2022 00:00-0400 Respiratory rate 17 /min Dr. Jarred Lopez Work Phone: [facility] Work Phone: 05-04-2022 00:00-0400 SaO2% (BldA) [Mass fraction] 96 % Dr. Jarred Lopez Work Phone: [facility] Work Phone: 05-04-2022 00:00-0400 Systolic blood pressure 114 mm[Hg] Dr. Jarred Lopez Work Phone: [facility] Work Phone: 05-03-2022 19:54-0400 Body height 152.[address] Jarred Lopez Work Phone: [facility] Work Phone: 05-03-2022 19:54-0400 Body mass index (BMI) [Ratio] 37.8 kg/m2 Dr. Jarred Lopez Work Phone: [facility] Work Phone: 05-03-2022 19:54-0400 Body temperature 97.8 [degF] Dr. Jarred Lopez Work Phone: [facility] Work Phone: 05-03-2022 19:54-0400 Body weight [address] Jarred Lopez Work Phone: [facility] Work Phone: 04-25-2022 15:04-0400 Heart rate 72 /min Dr. Jarred Lopez Work Phone: [facility] Work Phone: 04-25-2022 11:53-0400 Body temperature 97.8 [degF] Dr. Jarred Lopez Work Phone: [facility] Work Phone: 04-25-2022 11:53-0400 Diastolic blood pressure 65 mm[Hg] Dr. Jarred Lopez Work Phone: [facility] Work Phone: 04-25-2022 11:53-0400 Respiratory rate 16 /min Dr. Jarred Lopez Work Phone: [facility] Work Phone: 04-25-2022 11:53-0400 SaO2% (BldA) [Mass fraction] 94 % Dr. Jarred Lopez Work Phone: [facility] Work Phone: 04-25-2022 11:53-0400 Systolic blood pressure 105 mm[Hg] Dr. Jarred Lopez Work Phone: [facility] Work Phone: 04-25-2022 09:47-0400 Inhaled oxygen flow rate 2 L/min Dr. Jarred Lopez Work Phone: [facility] Work Phone: 04-24-2022 17:41-0400 Body height 152.[address] Jarred Lopez Work Phone: [facility] Work Phone: 04-24-2022 17:41-0400 Body mass index (BMI) [Ratio] 35.4 kg/m2 Dr. Jarred Lopez Work Phone: [facility] Work Phone: 04-24-2022 17:41-0400 Body weight 82.[address] Jarred Lopez Work Phone: [facility] Work Phone: 03-30-2022 15:00-0400 Body temperature 97.2 [degF] Dr. Jarred Lopez Work Phone: [facility] Work Phone: 03-30-2022 15:00-0400 Diastolic blood pressure 86 mm[Hg] Dr. Jarred Lopez Work Phone: [facility] Work Phone: 03-30-2022 15:00-0400 Heart rate 81 /min Dr. Jarred Lopez Work Phone: [facility] Work Phone: 03-30-2022 15:00-0400 Respiratory rate 16 /min Dr. Jarred Lopez Work Phone: [facility] Work Phone: 03-30-2022 15:00-0400 SaO2% (BldA) [Mass fraction] 96 % Dr. Jarred Lopez Work Phone: [facility] Work Phone: 03-30-2022 15:00-0400 Systolic blood pressure 114 mm[Hg] Dr. Jarred Lopez Work Phone: [facility] Work Phone: 03-28-2022 13:35-0400 Inhaled oxygen flow rate 2 L/min Dr. Jarred Lopez Work Phone: [facility] Work Phone: 03-20-2022 18:30-0400 Body temperature 97.1 [degF] Dr. Jarred Lopez Work Phone: [facility] Work Phone: 03-20-2022 18:30-0400 Diastolic blood pressure 89 mm[Hg] Dr. Jarred Lopez Work Phone: [facility] Work Phone: 03-20-2022 18:30-0400 Heart rate 80 /min Dr. Jarred Lopez Work Phone: [facility] Work Phone: 03-20-2022 18:30-0400 Respiratory rate 16 /min Dr. Jarred Lopez Work Phone: [facility] Work Phone: 03-20-2022 18:30-0400 SaO2% (BldA) [Mass fraction] 100 % Dr. Jarred Lopez Work Phone: [facility] Work Phone: 03-20-2022 18:30-0400 Systolic blood pressure 137 mm[Hg] Dr. Jarred Lopez Work Phone: [facility] Work Phone: 03-20-2022 18:20-0400 Body height 152.[address] Jarred Lopez Work Phone: [facility] Work Phone: 03-20-2022 18:20-0400 Body mass index (BMI) [Ratio] 32.3 kg/m2 Dr. Jarred Lopez Work Phone: [facility] Work Phone: 03-20-2022 18:20-0400 Body weight [address] Jarred Lopez Work Phone: [facility] Work Phone: 02-24-2022 16:22-0400 Heart rate 84 /min [facility] Work Phone: 02-24-2022 16:22-0400 Respiratory rate 16 /min [facility] Work Phone: 02-24-2022 16:22-0400 SaO2% (BldA) [Mass fraction] 97 % [facility] Work Phone: 02-24-2022 15:40-0400 Diastolic blood pressure 60 mm[Hg] [facility] Work Phone: 02-24-2022 15:40-0400 Systolic blood pressure 108 mm[Hg] [facility] Work Phone: 02-24-2022 13:02-0400 Body height 152.4 cm [facility] Work Phone: 02-24-2022 13:02-0400 Body mass index (BMI) [Ratio] 29.7 kg/m2 [facility] Work Phone: 02-24-2022 13:02-0400 Body temperature 97.6 [degF] [facility] Work Phone: 02-24-2022 13:02-0400 Body weight 68.94 kg [facility] Work Phone: 01-13-2022 19:41-0400 Diastolic blood pressure 70 mm[Hg] [facility] Work Phone: 01-13-2022 19:41-0400 Heart rate 74 /min [facility] Work Phone: 01-13-2022 19:41-0400 Respiratory rate 17 /min [facility] Work Phone: 01-13-2022 19:41-0400 SaO2% (BldA) [Mass fraction] 97 % [facility] Work Phone: 01-13-2022 19:41-0400 Systolic blood pressure 95 mm[Hg] [facility] Work Phone: 01-13-2022 14:20-0400 Body height 152.4 cm [facility] Work Phone: 01-13-2022 14:20-0400 Body mass index (BMI) [Ratio] 29.7 kg/m2 [facility] Work Phone: 01-13-2022 14:20-0400 Body temperature 97.3 [degF] [facility] Work Phone: 01-13-2022 14:20-0400 Body weight 68.94 kg [facility] Work Phone: 09-27-2021 14:38-0500 Body mass index (BMI) [Ratio] 28.7 kg/m2 [facility] Work Phone: 09-27-2021 14:38-0500 Body temperature 96.6 [degF] [facility] Work Phone: 09-27-2021 14:38-0500 Body weight 66.67 kg [facility] Work Phone: 09-27-2021 14:38-0500 Diastolic blood pressure 80 mm[Hg] [facility] Work Phone: 09-27-2021 14:38-0500 Heart rate 100 /min [facility] Work Phone: 09-27-2021 14:38-0500 Respiratory rate 16 /min [facility] Work Phone: 09-27-2021 14:38-0500 SaO2% (BldA) [Mass fraction] 100 % [facility] Work Phone: 09-27-2021 14:38-0500 Systolic blood pressure 154 mm[Hg] [facility] Work Phone: 07-28-2017 17:13-0400 BMI (Body Mass Index) 32.38 kg/m2 Angelikamarixa De La Torre LPN [facility] No w Clinic Work Phone: 07-28-2017 17:13-0400 Body Temperature 98.3 [degF] Angelika Wil CASTANO [facility] Work Phone: 07-28-2017 17:13-0400 BP Diastolic 76 mm[Hg] Angelika De La Torre LPN [facility] Work Phone: 07-28-2017 17:13-0400 BP Systolic 124 mm[Hg] Angelikamarixa De La Torre LPN [facility] Work Phone: 07-28-2017 17:13-0400 Height 152.4 cm Angelika De La Torre LPN [facility] Work Phone: 07-28-2017 17:13-0400 Pulse (Heart Rate) 72 /min Angelika De La Torre LPN [facility] Now C [facility]inic Work Phone: 07-28-2017 17:13-0400 Respiratory Rate 15 /min Angelika De La Torre LPN [facility] Now [facility] Work Phone: 07-28-2017 17:130400 Weight 75.21 kg Angelika De La Torre LPN [facility] Work Phone: 02-04-2012 09:28-0400 BSA (Body Surface Area) 1.75 m2 Angelika De La Torre LPN [facility] Work Phone: Encounters Encounter Date Encounter Type Care Provider Facility Start: 04-12-2025 ambulatory Lizet Linares OLS Fa cility:[facility] Start: 04-06-2025 ambulatory Lizet Linares OLS Fa cility:[facility] Start: 03-29-2025 ambulatory Sumit Urbina Facility:[facility] Start: 03-21-2025 End: 04-12-2025 ambulatory Dwayne Lopez MD Work Phone: [address] [place] [address] Comment on above: Diabetes Start: 03-20-2025 End: 03-20-2025 ambulatory Dwayne Lopez MD Work Phone: [facility] Start: 03-20-2025 End: 03-20-2025 Patient encounter procedure Dwayne Lopez MD Work Phone: [facility] Comment on above: Population Health Na vigation Outreach ([facility] ) Start: 03-12-2025 End: 03-12-[address] Lizet Linares MD Work Phone: [facility] Work Phone: Start: 03-12-2025 End: 03-12-2025 Departed Referred Lizet Linares MD -[facility] Start: 03-12-2025 End: 03-12-2025 ambulatory Lizet Linares Facility:[facility] Start: 03-05-2025 ambulatory Lizet Lennoni ty:[facility] Start: 03-05-2025 Registered Referred Ana Maria MOODY -[facility] Start: 02-12-2025 End: 02-12-2025 ambulatory Elizabeth Jennings [facility] Work Phone: [facility] Start: 02-12-2025 End: 02-12-2025 Patient encounter procedure Elizabeth Jennings [facility] Work Phone: [facility] Start: 02-06-2025 End: 03-09-2025 ambulatory Dwayne Lopez MD Work Phone: [facility] Start: 01-30-2025 End: 01-30-2025 Patient encounter procedure Shonda Chávez HI -[facility] Work Phone: Start: 01-30-2025 End: 01-30-2025 ambulatory Efewjanellbe Olejne Facility:[facility] Start: 01-23-2025 End: 01-23-2025 ambulatory Efewongbe Olee Facility:[facility] Start: 01-23-2025 End: 01-23-[address] Lizet Linares MD -[facility] Work Phone: Start: 01-22-2025 End: 01-22-2025 [facility] Start: 01-22-2025 End: 01-22-2025 Patient encounter procedure Ana Maria MOODY -[facility] Work Phone: Start: 01-22-2025 End: 01-22-2025 Ana Maria MOODY [facility] Work Phone: Start: 01-22-2025 End: 01-22-2025 Dr. Lizet Linares MD Work Phone: -Emergency Department Work Phone: Start: 01-22-2025 End: 01-22-2025 Emergency department patient visit Dr. Lizet Linares MD Work Phone: [facility] Work Phone: Start: 01-05-2025 End: 01-05-2025 ambulatory Dwayne Lopez MD Work Phone: [facility] Comment on above: Allied Health Visit (Medication Adherence Outreach/) Start: 01-05-2025 End: 01-05-2025 [facility] Start: 01-05-[facility]25 End: [facility]05[facility] Start: 01-04-2025 End: 01-05-2025 ambulatory Lizet Linares Facility:[facility] Start: 01-04-2025 End: 01-04-2025 Patient encounter procedure Claude REYNOLDS [facility] Work Phone: Start: 01-04-2025 End: 01-04-2025 Claude REYNOLDS [facility] Work Phone: Start: 12-07-2024 ambulatory Lizet Lennoni ty:[facility] Start: 12-07-2024 [facility] Start: 12-07-2024 Lizet Linares MD [facility] Start: 11-30-2024 ambulatory Lizet Crossjntal Lennoni ty:[facility] Start: 11-30-2024 [facility] Start: 11-30-2024 Lizet Linares MD [facility] Start: 11-29-2024 End: 11-29-2024 ambulatory [facility] Start: 11-29-2024 End: 11-29-2024 Patient encounter procedure Ashish Bray MA [facility] Comment on above: Population Health Na vigation Outreach ([facility]) Start: 11-28-2024 End: 11-28-2024 ambulatory Hollystacey Linares Facility:[facility] Start: 11-28-2024 End: 11-28-[address] Lizet Linares MD -[facility] Work Phone: Start: 11-28-2024 End: 11-28-2024 Dr. Lizet Linares MD -[facility] Work Phone: Start: 11-24-2024 ambulatory Efewongbe Oleghe OLS Fa cility:[facility] Start: 11-24-2024 [facility] Start: 11-17-2024 End: 11-17-2024 Lizet Linares MD [facility] Start: 11-17-2024 End: 11-17-2024 ambulatory Efewongbe Olejne OLS Facility:[facility] Start: 11-10-2024 End: 11-10-2024 Lizet Linares MD [facility] Start: 11-10-2024 End: 11-10-2024 ambulatory Efewongbe Oleghe Facility:[facility] Start: 11-03-2024 ambulatory Efewongbe Oleghe Facili ty:[facility] Start: 11-03-2024 [facility] Start: 11-01-2024 End: 11-01-2024 Lizet Linares MD [facility] Start: 11-01-2024 End: 11-01-2024 ambulatory Efewongbe Oleghe Facility:[facility] Start: 10-27-2024 End: 10-27-2024 ambulatory Efewongbe Oleghe Facility:[facility] Start: 10-27-2024 End: 10-27-2024 Ana Maria MOODY -[facility] Work Phone: Start: 10-24-2024 End: 10-24-2024 Dr. Salvador Campbell DO -Emergency Departoh nt Work Phone: Start: 10-24-2024 End: 10-24-2024 Emergency department patient visit Efchristaongbe Tayghe Facility:[facility] Start: 10-20-2024 ambulatory Efewongbe Oleghe Facili ty:[facility] Start: 10-20-2024 Lizet Linares MD [facility] Start: 10-13-2024 ambulatory Efewongbe Oleghe Facili ty:[facility] Start: 10-13-2024 [facility] Start: 10-06-2024 ambulatory Efewongbe Germane Facili ty:[facility] Start: 10-06-2024 End: 10-06-2024 Lizet Linares MD [facility] Start: 10-06-2024 End: 10-06-2024 ambulatory Efchristaongnatasha Portere Facility:[facility] Start: 09-29-2024 End: 09-29-2024 Lizet Linares MD [facility] Start: 09-29-2024 End: 09-29-2024 ambulatory Efchristamonterey parknatasha Portere Facility:[facility] Start: 09-26-2024 End: 09-27-2024 ambulatory Efchristamonterey parknatasha Portere Facility:[facility] Start: 09-26-2024 End: 09-27-2024 Dr. Lizet Linares MD -[facility] Work Phone: Start: 09-22-2024 End: 09-22-2024 ambulatory Efchristamonterey parkbe Germane Facility:[facility] Start: 09-20-2024 End: 09-20-2024 [facility] Start: 09-15-2024 End: 09-15-2024 ambulatory Efchristamonterey parknatasha Portere Facility:[facility] Start: 09-13-2024 End: 09-13-2024 ambulatory Efewongbe Olejne Facility:[facility] Start: 09-08-2024 End: 09-08-2024 ambulatory [facility] Start: 09-08-2024 End: 09-08-2024 Patient encounter procedure Irena Wild [facility] Comment on above: Population Health Na vigation Outreach ([facility] No PCP ) Start: 09-08-2024 End: 09-08-2024 ambulatory Efewmonterey parkbe Germane Facility:[facility] Start: 09-01-2024 ambulatory Efewmonterey parkbe Oleghe OLS Fa cility:[facility] Start: 08-25-2024 End: 08-25-2024 ambulatory Daniel Mari Facility:[facility] Start: 08-19-2024 End: 08-20-2024 Emergency department patient visit Raúl Alejo Facility:[facility] Start: 08-18-2024 End: 08-18-2024 ambulatory Efewongbe Oleghe Facility:[facility] Start: 08-11-2024 End: 08-11-2024 ambulatory Efewongbe Oleghe OLS Facility:[facility] Start: 08-04-2024 ambulatory Efewongbe Oleghe OLS Fa cility:[facility] Start: 08-02-2024 End: 08-02-2024 ambulatory Efewongbe Oleghe Facility:[facility] Start: 08-01-2024 End: 08-01-2024 ambulatory Efewongbe Oleghe Facility:[facility] Start: 07-28-2024 ambulatory Efewongbe Oleghe OLS Fa cility:[facility] Start: 07-21-2024 ambulatory Efewongbe Oleghe OLS Fa cility:[facility] Start: 07-14-2024 ambulatory Efewongbe Oleghe OLS Fa cility:[facility] Start: 07-08-2024 End: 07-08-2024 Emergency department patient visit Salvador Campbell Facility:[facility] Start: 07-07-2024 ambulatory Efewongbe Oleghe OLS Fa cility:[facility] Start: 07-04-2024 End: 07-04-2024 ambulatory Ana Maria Geller PLASTICS REPAIRER Facility:[facility] Start: 06-28-2024 ambulatory Efewongbe Oleghe OLS Fa cility:[facility] Start: 06-23-2024 ambulatory Efewongbe Oleghe OLS Fa cility:[facility] Start: 06-20-2024 ambulatory Napoleonmeliton Bennett Facility :[facility] Start: 06-20-2024 End: 06-20-2024 ambulatory Napoleon Friend Facility:[facility] Start: 06-16-2024 ambulatory Efewongbe Oleghe OLS Fa cility:[facility] Start: 06-13-2024 End: 06-13-2024 [facility] PLAST[facility] REPAIR[facility] Facility:[facility] Start: 06-11-2024 End: 06-12-2024 Emergency department patient visit Adebayo Camp Facility:[facility] Start: 06-08-2024 End: 06-09-2024 ambulatory Efewongbe Oleghe OLS Facility:[facility] Start: 06-06-2024 End: 06-06-2024 ambulatory Efewongbe Oleghe Facility:[facility] Start: 06-05-2024 End: 06-05-2024 ambulatory Efewongbe Oleghe OLS Facility:[facility] Start: 06-01-2024 End: 06-02-2024 ambulatory Gaurangjuan Basali Facility:[facility] Start: 05-31-2024 End: 05-31-2024 ambulatory Ana Maria Geller PLASTICS REPAIRER Facility:[facility] Start: 05-26-2024 End: 05-26-2024 ambulatory Efewongbe Tayghe OLS Facility:[facility] Start: 05-19-2024 End: 05-19-2024 ambulatory Efewongbe Oleghe OLS Facility:[facility] Start: 05-17-2024 End: 05-17-2024 ambulatory Efewongbe Oleghe OLS Facility:[facility] Start: 05-11-2024 End: 05-11-2024 ambulatory Ana Maria Geller PLASTICS REPAIRER Facility:[facility] Start: 05-05-2024 End: 05-05-2024 ambulatory Efewongbe Oleghe OLS Facility:[facility] Start: 04-28-2024 End: 04-28-2024 ambulatory Efewongbe Oleghe OLS Facility:[facility] Start: 04-21-2024 End: 04-21-2024 ambulatory Efewongbe Oleghe OLS Facility:[facility] Start: 04-06-2024 ambulatory Mel Peacock RN Work Phone: [employer] Comment on above: ACM TIARA RN Start: 03-28-2024 ambulatory Mel Peacock RN Work Phone: [employer] Start: 03-21-2024 Refill Dwayne Lopez MD Work Phone: [facility] Comment on above: Refill Request Start: 03-08-2024 ambulatory Dwayne Lopez MD Work Phone: Internal Medicine [facility] [place] Start: 02-25-2024 Dr. Jarred Lopez Work Phone: [facility] Start: 02-18-2024 End: 02-18-[address] Jarred Lopez Work Phone: [facility] Work Phone: Start: 02-18-2024 End: 02-18-2024 Dr. Jarred Lopez Work Phone: [facility] Start: 02-17-2024 ambulatory Annabel Agrawal [facility] Start: 02-17-2024 Patient encounter procedure Annabel Agrawal MA [facility] Comment on above: Population Health Na vigation Outreach (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 Jarred Lopez Work Phone: [facility] Work Phone: Start: 02-11-2024 End: 02-11-2024 Dr. Jarred Lopez Work Phone: [facility] Start: 02-10-2024 ambulatory Dwayne Lopez MD Work Phone: Pharm [facility] Comment on above: Allied Health Visit (Medication Adherence Outreach ) Start: 02-09-2024 Dr. Jarred Lopez Work Phone: [facility] Start: 02-04-2024 End: 02-04-[address] Jarred Lopez Work Phone: [facility] Work Phone: Start: 02-04-2024 End: 02-04-2024 Dr. Jarred Lopez Work Phone: [facility] Start: 02-02-2024 End: 02-02-[address] Jarred Lopez Work Phone: [facility] Work Phone: Start: 02-02-2024 End: 02-02-2024 Dr. Jarred Lopez Work Phone: [facility] Start: 02-01-2024 End: 02-01-2024 Dr. Jarred Lopez Work Phone: [facility] Work Phone: Start: 01-28-2024 Dr. Jarred Lopez Work Phone: [facility] Start: 01-24-2024 Telephone encounter Jarred Lopez MD Work Phone: [facility] Comment on above: Appointment Start: 01-21-2024 Dr. Jarred Lopez Work Phone: [facility] Start: 01-20-2024 End: 01-20-2024 Emergency department patient visit Dr. Jarred Lopez Work Phone: [facility] Work Phone: Start: 01-20-2024 End: 01-20-2024 Dr. Jarred Lopez Work Phone: [facility]-Emergency Department Work Phone: Start: 01-19-2024 Dr. Jarred Lopez Work Phone: [facility] Start: 01-17-2024 Dr. Jarred Lopez Work Phone: [facility] Start: 01-14-2024 Dr. Jarred Lopez Work Phone: [facility] Start: 01-12-2024 Dr. Jarred Lopez Work Phone: [phone] [place] [address] Start: 01-07-2024 Dr. Jarred Lopez Work Phone: [facility] Start: 01-06-2024 ambulatory Rachel Perea LPN [facility] Start: 01-06-2024 Telephone encounter Jarred Lopez MD Work Phone: [facility] [place] Comment on above: Appointment (Hospita l follow up (40 min as patient hasn't followed up as advised either LEA March 2023)) Transition Of Care Start: 01-05-2024 Dr. Jarred Lopez Work Phone: [facility] Work Phone: Start: 01-04-2024 Dr. Jarred Lopez Work Phone: [facility] Work Phone: Start: 01-03-2024 Dr. Jarred Lopez Work Phone: [facility] Work Phone: Start: 01-03-2024 Non-patient / Non-visit Dr. Adriana Lopez Work Phone: [facility] Start: 01-03-2024 Dr. Jarred Lopez Work Phone: [facility] Start: 01-02-2024 Non-patient / Non-visit Dr. Adriana Lopez Work Phone: [facility] Work Phone: Start: 01-02-2024 Dr. Jarred Lopez Work Phone: [facility] Work Phone: Start: 01-01-2024 Evaluation and manag ement of inpatient Dr. Jarred Lopez Work Phone: [facility] Work Phone: Start: 01-01-2024 End: 01-05-[address] Jarred Lopez Work Phone: [facility] Work Phone: Start: 01-01-2024 End: 01-05-2024 Dr. Jarred Lopez Work Phone: [facility] Work Phone: Start: 12-31-2023 End: 12-31-[address] Jarred Lopez Work Phone: [facility] Work Phone: Start: 12-31-[address] Luis Carlos Lopez Work Phone: [facility] Start: 12-31-2023 End: 12-31-2023 Dr. Jarred Lopez Work Phone: [facility] Start: 12-29-2023 End: 12-29-[address] Jarred Lopez Work Phone: [facility] Work Phone: Start: 12-29-[address] Luis Carlos Lopez Work Phone: [facility] Start: 12-29-2023 End: 12-29-2023 Dr. Jarred Lopez Work Phone: [facility] Start: 12-24-2023 End: 12-24-[address] Jarred Lopez Work Phone: [facility] Work Phone: Start: 12-24-[address] Luis Carlos Lopez Work Phone: [facility] Start: 12-24-2023 End: 12-24-2023 Dr. Jarred Lopez Work Phone: [facility] Start: 12-17-2023 End: 12-17-[address] Jarred Lopez Work Phone: [facility] Work Phone: Start: 12-17-2023 End: 12-17-[address] Jarred Lopez Work Phone: [facility] Start: 12-17-[address] Luis Carlos Lopez Work Phone: [facility] Start: 12-17-2023 End: 12-17-2023 Dr. Jarred Lopez Work Phone: [facility] Start: 12-10-[address] Luis Carlos Lopez Work Phone: [facility] Start: 12-10-2023 Dr. Jarred Lopez Work Phone: [facility] Start: 12-07-2023 End: 12-07-2023 Dr. Jarred Lopez Work Phone: [facility] Work Phone: Start: 11-26-[address] Luis Carlos Lopez Work Phone: [facility] Start: 11-26-2023 Dr. Jarred Lopez Work Phone: [facility] Start: 11-25-2023 End: 11-25-2023 Dr. Jarred Lopez Work Phone: [facility] Work Phone: Start: 11-24-2023 Non-patient / Non-visit Dr. Adriana Lopez Work Phone: [facility] Work Phone: Start: 11-24-2023 Dr. Jarred Lopez Work Phone: [facility] Work Phone: Start: 11-23-2023 Non-patient / Non-visit Dr. Adriana Lopez Work Phone: [facility] Work Phone: Start: 11-23-2023 Dr. Jarred Lopez Work Phone: [facility] Work Phone: Start: 11-22-2023 Non-patient / Non-visit Dr. Adriana Lopez Work Phone: [facility] Work Phone: Start: 11-22-2023 Dr. Jarred Lopez Work Phone: [facility] Work Phone: Start: 11-21-2023 Non-patient / Non-visit Dr. Adriana Lopez Work Phone: [facility] Work Phone: Start: 11-21-2023 Dr. Jarred Lopez Work Phone: [facility] Physicians Work Phone: Start: 11-20-2023 Non-patient / Non-visit Dr. Adriana Lopez Work Phone: [facility] Work Phone: Start: 11-20-2023 Dr. Jarred Lopez Work Phone: [facility] Work Phone: Start: 11-19-2023 Non-patient / Non-visit Dr. Adriana Lopez Work Phone: [facility] Work Phone: Start: 11-19-2023 End: 11-24-2023 Evaluation and management of inpatient Dr. Jarred Lopez Work Phone: [facility] Work Phone: Start: 11-19-[address] Lincoln Lopez Work Phone: [facility] Work Phone: Start: 11-19-2023 End: 11-24-2023 Dr. Jarred Lopez Work Phone: [facility] Work Phone: Start: 09-20-2023 ambulatory Dwayne Lopez MD Work Phone: [facility] Comment on above: Allied Health Visit (Medication Adherence Outreach ) Start: 08-20-2023 ambulatory Dwayne Lopez MD Work Phone: [facility] Comment on above: Allied Health Visit (Medication Adherence Outreach ) Start: 08-18-2023 ambulatory Irena [facility] [place] Comment on above: Population Health Na vigation Outreach ([place] care gaps ) Refill Request Start: 06-10-2023 End: 06-10-2023 Emergency department patient visit Dr. Ganesh Garcia Work Phone: [facility]Emergency Department Work Phone: Start: 06-10-2023 ambulatory Dwayne Lopez MD Work Phone: [facility] Comment on above: Constipation Start: 06-07-2023 Telephone encounter Jarred Lopez MD Work Phone: [facility] Comment on above: Appointment (ER foll ow up visit) Start: 06-06-2023 End: 06-06-2023 Emergency department patient [facility]h [facility] Start: 06-04-2023 End: 06-04-2023 Emergency department patient visit Dr. Ganesh Garcia Work Phone: [facility]Emergency Department Work Phone: Start: 05-20-2023 ambulatory Dwayne Lopez MD Work Phone: [facility] Comment on above: Allied Health Visit (Medication Adherence Outreach/) Refill Request Start: 05-04-2023 ambulatory Dwayne Lopez MD Work Phone: [facility] Start: 04-23-2023 End: 04-23-2023 Patient encounter procedure Vernon Degroot [employer] Work Phone: [facility] Comment on above: Toothache (Primary D x) Start: 04-08-2023 ambulatory Pcp ([facility]) [facility] Start: 04-07-2023 Telephone encounter Jarred Lopez MD Work Phone: [facility] Comment on above: Appointment Start: 04-07-2023 End: 04-07-2023 Patient encounter procedure Dwayne Lopez MD Work Phone: [facility] Comment on above: Generalized weakness (Primary [...] patient visit Dr. Lizet Linares Work Phone: [facility]Emergency Department Start: 03-24-2023 End: 03-24-2023 Patient encounter procedure Dwayne Lopez MD Work Phone: [facility] Comment on above: Globus sensation (Pr imary Dx); Gastroesophageal reflux disease, unspecified whether esophagitis present Start: 03-17-2023 End: 03-17-[address] Ganesh Garcia Work Phone: [facility] Work Phone: Start: 03-16-2023 End: 03-16-[address] Liezt Linares Work Phone: [facility] Work Phone: Start: 03-16-2023 End: 03-16-[address] Lizet Linares Work Phone: [facility] Start: 03-09-2023 End: 03-09-[address] Ganesh Garcia Work Phone: [facility] Work Phone: Start: 03-02-2023 End: 03-02-[address] Lizet Linares Work Phone: [facility] Start: 03-01-2023 End: 03-01-[address] Lizet Linares Work Phone: [facility]-Laboratory Start: 02-23-2023 ambulatory No Pcp [facility] Comment on above: Allied Health Visit (Medication Adherence Outreach ) Start: 02-16-2023 End: 02-16-[address] Lizet Linares Work Phone: [facility] Start: 02-11-2023 End: 02-11-[address] Lizet Linares Work Phone: [facility] Start: 02-02-2023 End: 02-02-[address] Lizet Linares Work Phone: [facility] Start: 02-02-2023 Dr. Lizet Linares Work Phone: [facility] Start: 01-30-2023 End: 01-30-[address] Lizet Linares Work Phone: [facility] Start: 01-29-2023 End: 01-30-2023 Emergency department patient visit Dr. Lizet Linares Work Phone: [facility]Emergency Department Start: 01-29-2023 End: 01-30-2023 Dr. Lizet Linares Work Phone: [facility]Emergency Department Start: 01-26-2023 End: 01-26-[address] Lizet Linares Work Phone: [facility] Work Phone: Start: 01-26-2023 End: 01-26-[address] Lizet Linares Work Phone: [facility] Lab Start: 01-26-2023 End: 01-26-2023 Dr. Lizet Linares Work Phone: [facility] Start: 01-19-2023 End: 01-19-[address] Lizet Linares Work Phone: [facility] Work Phone: Start: 01-19-2023 End: 01-19-[address] Lizet Linares Work Phone: [facility] Start: 01-19-[address] Shadia Linares Work Phone: [facility] Start: 01-19-2023 End: 01-19-2023 Dr. Lizet Linares Work Phone: [facility] Start: 01-18-2023 End: 01-18-[address] Lizet Linares Work Phone: [facility] Work Phone: Start: 01-18-2023 End: 01-18-[address] Lizet Linares Work Phone: [facility] Start: 01-18-2023 End: 01-18-2023 Dr. Lizet Linares Work Phone: [facility] Start: 01-08-2023 End: 01-08-[address] Lizet Linares Work Phone: [facility] Start: 01-08-2023 End: 01-08-2023 Dr. Lizet Linares Work Phone: [facility] Start: 01-07-2023 End: 01-07-[address] Lizet Linares Work Phone: [facility] Start: 01-07-2023 End: 01-07-2023 Dr. Lizet Linares Work Phone: [facility] Start: 01-07-2023 End: 01-07-2023 Emergency department patient visit Dr. Ganesh Garcia Work Phone: [facility] Work Phone: Start: 01-07-2023 End: 01-07-2023 Dr. Ganesh Garcia Work Phone: [facility]Emergency Department Start: 01-06-2023 End: 01-06-2023 Emergency department patient visit Dr. Ganesh Gacria Work Phone: [facility] Work Phone: Start: 01-06-2023 End: 01-06-2023 Dr. Ganesh Garcia Work Phone: [facility]Emergency Department Start: 01-05-2023 End: 01-05-[address] Lizet Linares Work Phone: [facility] Start: 01-05-2023 End: 01-05-[address] Lizet Linares Work Phone: [facility] Work Phone: Start: 01-05-2023 End: 01-05-[address] Lizet Linares Work Phone: [facility] Start: 01-05-2023 End: 01-05-2023 Dr. Ganesh Garcia Work Phone: [facility] Start: 01-04-2023 End: 01-04-[address] Lizet Linares Work Phone: [facility] Start: 01-04-2023 End: 01-04-2023 Dr. Lizet Linares Work Phone: [facility] Start: 01-01-2023 ambulatory Donnell Burr [facility] Work Phone: [facility] Comment on above: Medication Update ([place] use review ) Start: 12-28-2022 End: 12-28-[address] Lizet Linares Work Phone: [facility] Work Phone: Start: 12-28-2022 End: 12-28-[address] Lizet Linares Work Phone: [facility] Start: 12-28-2022 End: 12-28-2022 Dr. Ganesh Garcia Work Phone: [facility] Start: 12-24-2022 End: 12-24-[address] Lizet Linares Work Phone: [facility] Start: 12-24-2022 End: 12-24-2022 Dr. Lizet Linares Work Phone: [facility] Start: 12-23-2022 End: 12-23-[address] Lizet Linares Work Phone: [facility] Work Phone: Start: 12-23-2022 End: 12-23-[address] Lizet Linares Work Phone: [facility] Start: 12-23-2022 End: 12-23-2022 Dr. Ganesh Garcia Work Phone: [facility] Start: 12-22-2022 End: 12-22-[address] Lizet Linares Work Phone: [facility] Work Phone: Start: 12-22-2022 End: 12-22-[address] Lizet Linares Work Phone: [facility] Start: 12-22-2022 End: 12-22-2022 Dr. Ganesh Garcia Work Phone: [facility] Start: 12-21-2022 End: 12-21-[address] Lizet Linares Work Phone: [facility] Start: 12-21-2022 End: 12-21-2022 Dr. Ganesh Garcia Work Phone: [facility] Start: 12-14-2022 End: 12-14-[address] Lizet Linares Work Phone: [facility] Work Phone: Start: 12-14-2022 End: 12-14-[address] Lizet Linares Work Phone: [facility] Start: 12-14-2022 End: 12-14-2022 Dr. Ganesh Garcia Work Phone: [facility] Start: 12-09-2022 Non-patient / Non-visit Dr. Barbara Garcia Work Phone: [facility] Start: 12-09-2022 Dr. Ganesh butler Work Phone: [facility] Start: 12-08-2022 End: 12-08-[address] Lizet Linares Work Phone: [facility] Start: 12-08-2022 End: 12-08-[address] Lizet Linares Work Phone: [facility] Start: 12-08-[address] Ganesh horne Work Phone: [facility] Start: 12-08-2022 End: 12-08-2022 Dr. Ganesh Garcia Work Phone: [facility] Start: 11-24-2022 End: 11-24-[address] Ganesh Garcia Work Phone: [facility] Work Phone: Start: 11-24-2022 End: 11-24-[address] Ganesh Garcia Work Phone: [facility] Start: 11-24-2022 End: 11-24-2022 Dr. Ganesh Garcia Work Phone: [facility] Start: 11-10-2022 End: 11-10-[address] Ganesh Garcia Work Phone: [facility] Start: 11-10-2022 End: 11-10-2022 Dr. Ganesh Garcia Work Phone: [facility] Start: 11-10-2022 End: 11-10-[address] Ganesh Garcia Work Phone: [facility] Work Phone: Start: 11-10-2022 End: 11-10-[address] Ganesh Garcia Work Phone: [facility] Start: 11-10-[address] Ganesh horne Work Phone: [phone] [place] [address] Start: 11-10-2022 End: 11-10-2022 Dr. Ganesh Garcia Work Phone: [phone] [place] [address] Start: 11-09-2022 End: 11-09-[address] Ganesh Garcia Work Phone: [phone] [address] Start: 11-09-2022 End: 11-09-2022 Dr. Ganesh Garcia Work Phone: [phone] [address] Start: 11-05-2022 End: 11-05-[address] Ganesh Garcia Work Phone: [phone] [address] Start: 11-05-2022 End: 11-05-2022 Dr. Ganesh Garcia Work Phone: [phone] [place] [address] Start: 11-05-2022 End: 11-05-2022 Emergency department patient visit Dr. Ganesh Garcia Work Phone: [phone] [place] [address]-Emergency Department Start: 11-05-2022 End: 11-05-2022 Dr. Ganesh Garcia Work Phone: [facility]Emergency Department Start: 10-30-2022 End: 10-30-[address] Ganesh Garcia Work Phone: [facility] Work Phone: Start: 10-30-2022 End: 10-30-[address] Ganesh Garcia Work Phone: [facility] Start: 10-30-[address] Ganesh horne Work Phone: [phone] [place] [address] Start: 10-30-2022 End: 10-30-2022 Dr. Ganesh Garcia Work Phone: [phone] [address] Start: 10-28-2022 End: 10-28-[address] Ganesh Garcia Work Phone: [phone] [place] [address] Start: 10-28-2022 End: 10-28-2022 Dr. Ganesh Garcia Work Phone: [phone] [address] Start: 10-27-2022 End: 10-27-[address] Ganesh Garcia Work Phone: [phone] [place] [address] Work Phone: Start: 10-27-2022 End: 10-27-[address] Ganesh Garcia Work Phone: [phone] [address] Start: 10-27-[address] Ganesh horne Work Phone: [phone] [place] [address] Start: 10-27-2022 End: 10-27-2022 Dr. Ganesh Garcia Work Phone: [phone] [place] [address] Start: 10-21-2022 End: 10-21-[address] Ganesh Garcia Work Phone: [phone] [place] [address] Start: 10-21-2022 End: 10-21-2022 Dr. Ganesh Garcia Work Phone: [phone] [place] [address] Start: 10-13-2022 End: 10-13-[address] Ganesh Garcia Work Phone: [phone] [place] [address] Work Phone: Start: 10-13-2022 End: 10-13-[address] Ganesh Garcia Work Phone: [phone] [place] [address] Start: 10-13-[address] Ganesh horne Work Phone: [phone] [place] [address] Start: 10-13-2022 End: 10-13-2022 Dr. Ganesh Garcia Work Phone: [phone] [place] [address] Start: 10-12-2022 End: 10-12-[address] Ganesh Garcia Work Phone: [phone] [place] [address] Start: 10-12-2022 End: 10-12-2022 Dr. Ganesh Garcia Work Phone: [phone] [place] [address] Start: 10-09-2022 End: 10-09-2022 Emergency department patient visit Dr. Ganesh Garcia Work Phone: [phone] [place] [address]-Emergency Department Start: 10-09-2022 End: 10-09-2022 Dr. Ganesh Garcia Work Phone: [phone] [address]-Emergency Department Start: 09-29-2022 End: 09-29-[address] Ganesh Garcia Work Phone: [phone] [place] [address] Start: 09-29-[address] Ganesh horne Work Phone: [phone] [place] [address] Start: 09-29-2022 End: 09-29-2022 Dr. Ganesh Garcia Work Phone: [phone] [place] [address] Start: 09-15-2022 End: 09-15-[address] Ganesh Garcia Work Phone: [phone] [place] [address] Work Phone: Start: 09-15-2022 End: 09-15-[address] Ganesh Garcia Work Phone: [phone] [place] [address] Start: 09-15-[address] Ganesh horne Work Phone: [phone] [place] [address] Start: 09-15-2022 End: 09-15-2022 Dr. Ganesh Garcia Work Phone: [facility] Start: 09-11-2022 End: 09-11-[address] Ganesh Garcia Work Phone: [phone] [place] [address] Work Phone: Start: 09-11-2022 End: 09-11-[address] Ganesh Garcia Work Phone: [phone] [place] [address] Start: 09-11-[address] Ganesh horne Work Phone: [phone] [place] [address] Start: 09-11-2022 End: 09-11-2022 Dr. Ganesh Garcia Work Phone: [phone] [place] [address] Start: 09-09-2022 End: 09-09-[address] Ganesh Garcia Work Phone: [phone] [place] [address] Start: 09-09-2022 End: 09-09-2022 Dr. Ganesh Garcia Work Phone: [phone] [place] [address] Start: 09-01-2022 End: 09-01-[address] Ganesh Garcia Work Phone: [phone] [place] [address] Start: 09-01-2022 End: 09-01-[address] Ganesh Garcia Work Phone: [phone] [place] [address] Work Phone: Start: 09-01-2022 End: 09-01-[address] Ganesh Garcia Work Phone: [phone] [place] [address] Start: 08-24-2022 End: 08-24-[address] Ganesh Garcia Work Phone: [phone] [place] [address] Start: 08-24-2022 End: 08-24-2022 Emergency department patient visit Dr. Ganesh Garcia Work Phone: [facility]Emergency Department Start: 08-18-2022 End: 08-18-[address] Ganesh Garcia Work Phone: [facility] Work Phone: Start: 08-18-2022 End: 08-18-[address] Ganesh Garcia Work Phone: [facility] Start: 08-18-[address] Luis Carlos Lopez Work Phone: [facility] Start: 08-04-2022 End: 08-04-[address] Jarred Lopez Work Phone: [facility] Work Phone: Start: 08-04-2022 End: 08-04-[address] Jarred Lopez Work Phone: [facility] Start: 08-04-[address] Luis Carlos Lopez Work Phone: [facility] Start: 07-20-2022 End: 07-20-[address] Jarred Lopez Work Phone: [facility] Work Phone: Start: 07-20-2022 End: 07-20-[address] Jarred Lopez Work Phone: [facility] Start: 07-20-[address] Luis Carlos Lopez Work Phone: [facility] Start: 07-13-2022 End: 07-13-[address] Ganesh Garcia Work Phone: [facility] Start: 07-13-[address] Luis Carlos Lopez Work Phone: [facility] Start: 07-07-2022 End: 07-07-[address] Jarred Lopez Work Phone: [facility] Start: 07-07-[address] Luis Carlos Lopez Work Phone: [facility] Start: 07-03-2022 End: 07-03-[address] Jarred Loepz Work Phone: [facility] Work Phone: Start: 07-03-2022 End: 07-03-[address] Jarred Lopez Work Phone: [facility] Start: 07-03-[address] Luis Carlos Lopez Work Phone: [facility] Start: 07-02-2022 Non-patient / Non-visit Dr. Adriana Lopez Work Phone: [facility] Start: 07-02-2022 End: 07-02-[address] Jarred Lopez Work Phone: [facility] Start: 07-01-2022 End: 07-01-[address] Jarred Lopez Work Phone: [facility] Work Phone: Start: 07-01-2022 End: 07-01-[address] Jarred Lopez Work Phone: [facility] Start: 07-01-[address] Luis Carlos Lopez Work Phone: [facility] Start: 06-23-2022 End: 06-23-[address] Jarred Lopez Work Phone: [facility] Work Phone: Start: 06-23-2022 End: 06-23-[address] Jarred Lopez Work Phone: [facility] Start: 06-12-2022 End: 06-12-[address] Jarred Lopez Work Phone: [facility] Work Phone: Start: 06-12-2022 End: 06-12-[address] Jarred Lopez Work Phone: [facility]Laboratory Start: 06-12-2022 End: 06-12-[address] Jarred Lopez Work Phone: [facility] Start: 06-09-2022 Non-patient / Non-visit Dr. Adriana Lopez Work Phone: [facility] Start: 06-09-2022 End: 06-09-[address] Jarred Lopez Work Phone: [facility] Start: 06-09-[address] Luis Carlos Lopez Work Phone: [facility] Start: 05-26-[address] Luis Carlos Lopez Work Phone: [facility] Start: 05-21-2022 Non-patient / Non-visit Dr. Adriana Lopez Work Phone: [facility] Start: 05-21-2022 End: 05-21-2022 Evaluation and management of inpatient Dr. Jarred Lopez Work Phone: [facility]Progressive Care Unit Start: 05-20-2022 End: 05-20-[address] Jarred Lopez Work Phone: [facility] Start: 05-20-[address] Luis Carlos Lopez Work Phone: [facility] Start: 05-12-2022 End: 05-12-[address] Jarred Lopez Work Phone: [facility] Start: 05-12-[address] Luis Carlos Lopez Work Phone: [facility] Start: 05-04-2022 End: 05-04-[address] Jarred Lopez Work Phone: [facility] Start: 05-03-2022 End: 05-04-2022 Emergency department patient visit Dr. Jarred Lopez Work Phone: [facility]Emergency Department Start: 05-03-2022 End: 05-04-2022 Non-patient / Non-visit Dr. Jarred Lopez Work Phone: [facility] Start: 04-28-2022 End: 04-28-[address] Jarred Lopez Work Phone: [facility] Start: 04-28-2022 End: 04-28-[address] Jarred Lopez Work Phone: [facility] Start: 04-28-[address] Luis Carlos Lopez Work Phone: [facility] Start: 04-25-2022 Non-patient / Non-visit Dr. Adriana Lopez Work Phone: [facility] Start: 04-25-2022 Non-patient / Non-visit Dr. Adriana Lopez Work Phone: [facility] Start: 04-24-2022 Non-patient / Non-visit Dr. Adriana Lopez Work Phone: [facility] Start: 04-24-2022 End: 04-25-2022 Evaluation and management of inpatient Dr. Jarred Lopez Work Phone: [facility] Start: 04-17-2022 End: 04-17-[address] Jarred Lopez Work Phone: [facility] Start: 04-17-[address] Luis Carlos Lopez Work Phone: [facility] Start: 04-13-2022 End: 04-13-[address] Jarred Lopez Work Phone: [facility] Start: 04-13-[address] Luis Carlos Lopez Work Phone: [facility] Start: 04-06-2022 End: 04-06-[address] Jarred Lopez Work Phone: [facility] Start: 04-03-2022 [facility] Comment on above: Population Health Na vigation Outreach (HCC) Start: 03-30-2022 Non-patient / Non-visit Dr. Adriana Lopez Work Phone: [facility] Start: 03-29-2022 Non-patient / Non-visit Dr. Adriana Lopez Work Phone: [facility] Start: 03-28-2022 Non-patient / Non-visit Dr. Adriana Lopez Work Phone: [facility] Start: 03-27-2022 Non-patient / Non-visit Dr. Adriana Lopez Work Phone: [facility] Start: 03-26-2022 Non-patient / Non-visit Dr. Adriana Lopez Work Phone: [facility] Start: 03-25-2022 Non-patient / Non-visit Dr. Adriana Lopez Work Phone: [facility] Start: 03-24-2022 Non-patient / Non-visit Dr. Adriana Lopez Work Phone: [facility] Start: 03-23-2022 Non-patient / Non-visit Dr. Adriana Lopez Work Phone: [facility] Start: 03-22-2022 Non-patient / Non-visit Dr. Adriana Lopez Work Phone: [facility] Start: 03-21-2022 Non-patient / Non-visit Dr. Adriana Lopez Work Phone: [facility] Start: 03-20-2022 Non-patient / Non-visit Dr. Adriana Lopez Work Phone: [facility] Start: 03-20-2022 End: 03-30-2022 Evaluation and management of inpatient Dr. Jarred Lopez Work Phone: [facility]Pro[facility] Start: 02-24-2022 End: 02-24-2022 [facility] [facility] Start: 01-13-2022 End: 01-13-2022 Emergency department patient visit [facility] Start: 09-27-2021 End: 09-27-2021 Emergency department patient visit [facility] Start: 09-29-2018 Patient encounter procedure Tj De Luna Facility:[facility] Start: 08-03-2018 Patient encounter procedure Tj De Luna Facility:[facility] Start: 06-01-2018 Patient encounter procedure Tj De Luna Facility:[facility] Start: 03-08-2018 Ambulatory SIXTO CALIXTO Facility :[facility] Start: 02-22-2018 Patient encounter procedure Tj De Luna Facility:[facility] Start: 11-30-2017 Patient encounter procedure Tj De Luna Facility:[facility] Start: 12-10-2008 End: 06-03-2015 Patient encounter status Annabel Agrawal SARITA Moy Josue zeus Work Phone: Procedures Date Procedure Procedure Detail Performing Clinician Start: 01-30-2025 Evaluation of diagno stic study results Dr. Lizet Linares MD Work Phone: Start: 01-22-2025 Plain chest X-ray Dr. Tal Linares MD Work Phone: Start: 01-22-[address] Lizet Linares MD Work Phone: Start: 12-07-[address] Lizet Linares MD Work Phone: Start: 12-07-2024 Urine microalbumin/c reatinine ratio measurement Dr. Lizet Linares MD Work Phone: Start: 10-24-2024 Computed [...] Detail Author Start: 06-09-2031 Urine microalbumin profile [facility] Start: 06-25-2025 Influenza vaccination Influenza Vaccine (Season Ended) [facility] Start: 01-22-2025 [facility] Start: 01-22-2025 [facility] Start: 10-25-2024 Medicare Advantage Annual Wellness Visit Medicare Advantage Annual Wellness Visit [facility] Start: 10-24-2024 [facility] Start: 06-25-2024 Covid-19 Vaccine ( season) Covid-19 Vaccine ( season) [facility] Start: 06-25-2024 Influenza vaccination [facility] Start: 04-18-2024 End: 04-18-2024 Patient encounter procedure 04/18/2024 12:20 PM EDT Office Visit [facility] [address] [place] [address] 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 [address] [place] [address] Yearly Exam [facility] Comment on above: Yearly Exam Start: 04-07-2024 3 comp foot exam completed DIABETIC FOOT EXAM [facility] Start: 04-07-2024 ANNUAL PCP TEAM CHRONIC DISEASE VISIT ANNUAL PCP TEAM CHRONIC DISEASE VISIT [facility] Start: 04-07-2024 COVID-19 VACCINE (4 - Booster for Pfizer series) COVID-19 VACCINE (4 - Booster for Pfizer series) [facility] Comment on above: Postponed from 07/28/2022 (Declined at t his time) Start: 04-07-2024 COVID-19 VACCINE (4 - Pfizer series) COVID-19 VACCINE (4 - Pfizer series) [facility] Comment on above: Postponed from 07/28/2022 (Declined at t his time) Start: 04-07-2024 Diabetic foot examination Diabetic Foot Exam [facility] Start: 04-07-2024 SHINGRIX VACCINE (1 of 2) SHINGRIX VACCINE (1 of 2) [facility] Comment on above: Postponed from 2013 (Declined at t his time) Start: 03-30-2024 End: 03-30-2024 Patient encounter procedure 03/30/2024 12:40 PM EDT Office Visit [facility] [address] [facility] [place] [address] Dwayne Lopez MD [address] [place] [id number] ER follow up; [facility] 03/24/2024 head injury-PCP has ER summary on desk [facility] [place] Comment on above: ER follow up; [facility] 03/24/2024 head injury- PCP has ER summary on desk Start: 03-24-2024 ANNUAL PCP TEAM CHRONIC DISEASE VISIT ANNUAL PCP TEAM CHRONIC DISEASE VISIT [facility] Start: 02-25-2024 End: 02-25-2024 Blood chemistry [facility] Start: 02-25-2024 End: 02-25-2024 Thyroid stimulating hormone measurement [facility] Start: 02-25-2024 End: 02-25-2024 [facility] Start: 01-20-2024 End: 01-20-2024 [facility] Start: 01-20-2024 [facility] Start: 01-17-2024 Urine culture [facility] Start: 01-17-2024 [facility] Start: 01-05-2024 Patient discharge [facility] Start: 01-01-2024 End: 01-01-2024 Following clinical pathway protocol [facility] Start: 01-01-2024 Assessment of risk of venous thromboembolism [facility] Start: 01-01-2024 Care regimes management [facility] Start: 01-01-2024 Fall prevention [facility] Start: 01-01-2024 Inhalation therapy procedure [facility] Start: 01-01-2024 Insertion of catheter into peripheral vein [facility] Start: 01-01-2024 Introduction of urinary catheter [facility] Start: 01-01-2024 Measuring intake and output [facility] Start: 01-01-2024 Notification of physician [facility] Start: 01-01-2024 Oxygen therapy [facility] Start: 01-01-2024 Providing care according to standard [facility] Start: 01-01-2024 Provision of activity privileges [facility] Start: 01-01-2024 Referral to occupational therapist [facility] Start: 01-01-2024 Referral to service [facility] Start: 01-01-2024 [facility] Start: 01-01-2024 Verification routine [facility] Start: 01-01-2024 Admission procedure [facility] Start: 01-01-2024 Hospital admission, emergency, from emergency room, medical nature [facility] Start: 01-01-2024 Patient referral to dietitian [facility] Start: 11-24-2023 Patient discharge [facility] Start: 11-22-2023 [facility] Start: 11-22-2023 Blood chemistry [facility] Start: 11-21-2023 Blood chemistry [facility] Start: 11-21-2023 [facility] Start: 11-20-2023 Blood chemistry [facility] Start: 11-19-2023 End: 11-19-2023 [facility] Start: 11-19-2023 Following clinical pathway protocol [facility] Start: 11-19-2023 Ambulation without limitation [facility] Start: 11-19-2023 Assessment of risk of venous thromboembolism [facility] Start: 11-19-2023 Care regimes management [facility] Start: 11-19-2023 Incentive spirometry [facility] Start: 11-19-2023 Insertion of catheter into peripheral vein [facility] Start: 11-19-2023 Measuring intake and output [facility] Start: 11-19-2023 Notification of physician [facility] Start: 11-19-2023 Providing care according to standard [facility] Start: 11-19-2023 Provision of activity privileges [facility] Start: 11-19-2023 Referral to occupational therapist [facility] Start: 11-19-2023 Referral to service [facility] Start: 11-19-2023 Verification routine [facility] Start: 11-19-2023 Admission procedure [facility] Start: 11-19-2023 Enteric precautions [facility] Start: 11-19-2023 Measurement of occult blood in stool specimen using immunoassay [facility] Start: 11-19-2023 Patient referral to dietitian [facility] Start: 10-25-2023 Behavioral Health Screening Behavioral Health Screening [facility] Start: 10-25-2023 Depression Assessment Depression Assessment [facility] Start: 2023 Hepatitis B Vaccine (1 of 3 - Risk 3-dose series) Hepatitis B Vaccine (1 of 3 - Risk 3-dose series) [facility] Start: 2023 RSV Vaccine (1 - 1-dose 60+ series) RSV Vaccine (1 - 1-dose 60+ series) [facility] Start: 2023 RSV Vaccine (1 - Risk 60-74 years 1-dose series) RSV Vaccine (1 - Risk 60-74 years 1-dose series) [facility] Start: 06-25-2023 Covid-19 Vaccine (2022- season) Covid-19 Vaccine ( season) [facility] Start: 06-25-2023 Influenza vaccination [facility] Start: 04-07-2023 End: 06-07-2023 ALBUMIN/CREAT RATIO RND UR ALBUMIN/CREAT RATIO RND UR Lab Routine Diabetes mellitus type 2 with neurological manifestations (HCC) Expected: 04/07/2023, Expires: 06/07/2023 [facility] Work Phone: Comment on above: Expected: 04/07/2023, Expires: 3 Start: 04-07-2023 End: 06-07-2023 CBC W Auto Differential panel - Blood CBC + DIFF Lab Routine Diabetes mellitus type 2 with neurological manifestations (HCC) Expected: 04/07/2023, Expires: 06/07/2023 [facility] Work Phone: Comment on above: Expected: 04/07/2023, Expires: 3 Start: 04-07-2023 End: 06-07-2023 Comprehensive metabolic 2000 panel - Serum or Plasma COMP METABOLIC PANEL Lab Routine Diabetes mellitus type 2 with neurological manifestations (HCC) Expected: 04/07/2023, Expires: 06/07/2023 [facility] Work Phone: Comment on above: Expected: 04/07/2023, Expires: 3 Start: 04-07-2023 End: 06-07-2023 Hemoglobin A1c in Blood HGB A1C Lab Routine Diabetes mellitus type 2 with neurological manifestations (HCC) Expected: 04/07/2023, Expires: 06/07/2023 [facility] Work Phone: Comment on above: Expected: 04/07/2023, Expires: 3 Start: 04-07-2023 End: 06-07-2023 Hepatic function 2000 panel - Serum or Plasma HEPATIC FUNCTION PNL Lab Routine Onychomycosis Expected: 04/07/2023, Expires: 06/07/2023 [facility] Work Phone: Comment on above: Expected: 04/07/2023, Expires: 3 Start: 04-07-2023 End: 06-07-2023 LIPID PANEL, NONFASTING LIPID PANEL, NONFASTING Lab Routine Diabetes mellitus type 2 with neurological manifestations (HCC) Expected: 04/07/2023, Expires: 06/07/2023 [facility] Work Phone: Comment on above: Expected: 04/07/2023, Expires: 3 Start: 04-07-2023 End: 06-07-2023 Thyrotropin [Units/volume] in Serum or Plasma TSH BLD Lab Routine Acquired hypothyroidism Expected: 04/07/2023, Expires: 06/07/2023 [facility] Work Phone: Comment on above: Expected: 04/07/2023, Expires: 3 Start: 01-29-2023 [facility] Start: 11-05-2022 [facility] Start: 10-25-2022 DEPRESSION ASSESSMENT DEPRESSION ASSESSMENT [facility] Start: 10-09-2022 [facility] Work Phone: Start: 08-24-2022 [facility] Start: 07-28-2022 COVID-19 VACCINE (4 - Booster for Pfizer series) COVID-19 VACCINE (4 - Booster for Pfizer series) [facility] Start: 07-13-2022 [facility] Work Phone: Start: 06-25-2022 Influenza vaccination [facility] Start: 05-22-2022 Blood chemistry [facility] Work Phone: Start: 05-22-2022 Complete blood count [facility] Work Phone: Start: 05-22-2022 Partial thromboplastin time, activated [facility] Work Phone: Start: 05-22-2022 Prothrombin time [facility] Work Phone: Start: 05-21-2022 Notification of physician [facility] Work Phone: Start: 05-21-2022 Patient discharge [facility] Work Phone: Start: 05-21-2022 Provision of activity privileges [facility] Work Phone: Start: 05-21-2022 Scheduling [facility] Work Phone: Start: 05-21-2022 Taking patient vital signs [facility] Work Phone: Start: 05-21-2022 Vascular disease risk assessment [facility] Work Phone: Start: 05-21-2022 [facility] Work Phone: Start: 05-21-2022 Referral to occupational therapist [facility] Work Phone: Start: 05-21-2022 Referral to service [facility] Work Phone: Start: 05-21-2022 Catheterization of vein [facility] Work Phone: Start: 05-21-2022 Medication not administered [facility] Work Phone: Start: 05-21-2022 [facility] Work Phone: Start: 05-21-2022 Application of intermittent pneumatic compression device [facility] Work Phone: Start: 05-21-2022 Following clinical pathway protocol [facility] Work Phone: Start: 05-21-2022 Assessment of risk of venous thromboembolism [facility] Work Phone: Start: 05-21-2022 Care regimes management [facility] Work Phone: Start: 05-21-2022 Insertion of catheter into peripheral vein [facility] Work Phone: Start: 05-21-2022 Introduction of urinary catheter [facility] Work Phone: Start: 05-21-2022 Measuring intake and output [facility] Work Phone: Start: 05-21-2022 Oxygen therapy [facility] Work Phone: Start: 05-21-2022 Providing care according to standard [facility] Work Phone: Start: 05-21-2022 Provision of activity privileges [facility] Work Phone: Start: 05-21-2022 Referral to client service consultant [facility] Work Phone: Start: 05-21-2022 Referral to service [facility] Work Phone: Start: 05-21-2022 [facility] Work Phone: Start: 05-21-2022 Verification routine [facility] Work Phone: Start: 05-21-2022 Admission procedure [facility] Work Phone: Start: 05-03-2022 [facility] Work Phone: Start: 04-25-2022 Patient discharge [facility] Work Phone: Start: 04-24-2022 Ambulation without limitation [facility] Work Phone: Start: 04-24-2022 Assessment of risk of venous thromboembolism [facility] Work Phone: Start: 04-24-2022 Care regimes management [facility] Work Phone: Start: 04-24-2022 Catheterization of vein [facility] Work Phone: Start: 04-24-2022 Insertion of catheter into peripheral vein [facility] Work Phone: Start: 04-24-2022 Measuring intake and output [facility] Work Phone: Start: 04-24-2022 Oxygen therapy [facility] Work Phone: Start: 04-24-2022 Providing care according to standard [facility] Work Phone: Start: 04-24-2022 Referral to service [facility] Work Phone: Start: 04-24-2022 [facility] Work Phone: Start: 04-24-2022 Following clinical pathway protocol [facility] Work Phone: Start: 04-24-2022 Admission procedure [facility] Work Phone: Start: 03-30-2022 Patient discharge [facility] Work Phone: Start: 03-30-2022 [facility] Work Phone: Start: 03-25-2022 Oxygen therapy [facility] Work Phone: Start: 03-20-2022 Assessment of risk of venous thromboembolism [facility] Work Phone: Start: 03-20-2022 Catheterization of vein [facility] Work Phone: Start: 03-20-2022 Insertion of catheter into peripheral vein [facility] Work Phone: Start: 03-20-2022 Measuring intake and output [facility] Work Phone: Start: 03-20-2022 Providing care according to standard [facility] Work Phone: Start: 03-20-2022 Provision of activity privileges [facility] Work Phone: Start: 03-20-2022 Referral to occupational therapist [facility] Work Phone: Start: 03-20-2022 Referral to service [facility] Work Phone: Start: 03-20-2022 [facility] Work Phone: Start: 03-20-2022 Following clinical pathway protocol [facility] Work Phone: Start: 03-20-2022 Admission procedure [facility] Work Phone: Start: 01-13-2022 Bacteria identified in Urine by Culture Urine Culture [facility] Work Phone: Start: 07-21-2021 COVID-19 VACCINE (3 - Booster for Pfizer series) COVID-19 VACCINE (3 - Booster for Pfizer series) [facility] Start: 04-15-2021 COVID-19 VACCINE (3 - Booster for Pfizer series) COVID-19 VACCINE (3 - Booster for Pfizer series) [facility] Start: 03-25-2021 Glaucoma screening Dilated Retinal Exam [facility] Start: 03-25-2021 Hepatitis C antibody, confirmatory test DILATED RETINAL EXAM [facility] Start: 01-24-2021 ANNUAL PCP TEAM CHRONIC DISEASE VISIT ANNUAL PCP TEAM CHRONIC DISEASE VISIT [facility] Start: 12-25-2020 Hepatitis B screening URINE ALBUMIN:CREATININE RATIO [facility] Start: 10-27-2020 COLORECTAL CANCER SCREENING COLORECTAL CANCER SCREENING [facility] Start: 10-27-2020 FECAL OCCULT BLOOD FECAL OCCULT BLOOD [facility] Start: 10-27-2020 Screening for malignant neoplasm of colon [facility] Start: 10-26-2020 Creatinine measurement Serum Creatinine [facility] Start: 10-26-2020 SERUM CREATININE SERUM CREATININE [facility] Start: 09-18-2020 Hepatitis B surface antibody level LDL CHOLESTEROL [facility] Start: 09-04-2020 Complete blood count Hemoglobin/Hematocrit [facility] Start: 02-22-2020 Hemoglobin A1c measurement HbA1C [facility] Start: 02-22-2020 Hemoglobin A1c/Hemoglobin.total in Blood HBA1C [facility] Start: 07-04-2019 PNEUMOCOCCAL (2 - PCV) PNEUMOCOCCAL (2 - PCV) [facility] Start: 06-21-2018 3 comp foot exam completed DIABETIC FOOT EXAM [facility] Start: 06-21-2018 Adult depression screening assessment DEPRESSION SCREENING [facility] Start: 01-22-2018 Mammography [facility] Start: 01-22-2018 Screening for malignant neoplasm of breast Mammogram Screening [facility] Start: 07-28-2017 End: 07-28-2017 Appointment [facility] Work Phone: Start: 2013 SHINGRIX VACCINE (1 of 2) [facility] Start: 08-14-2010 End: 08-14-2010 Follow Up Appt 1 month Follow Up Appt 1 month [facility] Work Phone: Start: 08-14-2010 End: 08-14-2010 Iiv3 vaccine split virus 0.5 ml dosage im use Flu vaccine > age 3 yr (with preservative) [facility] Work Phone: Start: 03-10-2010 End: 08-11-2010 Blood count complete automated *CBC without Diff [facility] Work Phone: Start: 03-10-2010 End: 08-11-2010 Comprehensive metabolic panel *CMP Complete Metabolic Panel [facility] Work Phone: Start: 03-10-2010 End: 03-10-2010 Follow Up Appt 2 weeks Follow Up Appt 2 weeks [facility] Work Phone: Start: 03-10-2010 End: 11-19-2014 Gastroenterology Referral Gastroenterology Referral Kristopher Santana, [address], [address], [place], [address] [facility] Work Phone: Start: 03-10-2010 End: 08-11-2010 Hemoglobin A1c/Hemoglobin.total mass fraction (Bld) *HgA1C [facility] Work Phone: Start: 03-10-2010 End: 08-11-2010 Protein mass conc *Lipid Profile [facility] Work Phone: Start: 03-10-2010 End: 08-11-2010 Thyrotropin Qn *TSH [facility] Work Phone: Start: 03-10-2010 End: 08-11-2010 Urinls dip stick/tablet reagnt non-auto micrscpy *Urinalysis [facility] Work Phone: Start: 2008 COLOGUARD (FIT-DNA) COLOGUARD (FIT-DNA) [facility] Start: 2008 Colonoscopy COLONOSCOPY [facility] Start: [address] COLONOGRAPHY [facility] Start: 2008 Screening for malignant neoplasm of colon [facility] Start: 2008 SIGMOIDOSCOPY SIGMOIDOSCOPY [facility] Start: 1982 HEPATITIS B (1 of 3 - Risk 3-dose series) HEPATITIS B (1 of 3 - Risk 3-dose series) [facility] Start: 1981 Anxiety Screening Anxiety Screening [facility] Start: 1981 Depression Screening Depression Screening [facility] Alanine aminotransfe rase [Enzymatic activity/volume] in Serum or Plasma [facility] Work Phone: Alanine aminotransfe rase [Enzymatic activity/volume] in Serum or Plasma [facility] Alanine aminotransfe rase [Enzymatic activity/volume] in Serum or Plasma [facility] Albumin [Mass/volume ] in Serum or Plasma [facility] Work Phone: Albumin [Mass/volume ] in Serum or Plasma [facility] Albumin [Mass/volume ] in Serum or Plasma [facility] Alkaline phosphatase [Enzymatic activity/volume] in Serum or Plasma [facility] Work Phone: Alkaline phosphatase [Enzymatic activity/volume] in Serum or Plasma [facility] Alkaline phosphatase [Enzymatic activity/volume] in Serum or Plasma [facility] Anion gap measurement [facility] Work Phone: Anion gap measurement [facility] Anion gap measurement [facility] Anion gap measurement [facility] Anion gap measurement [facility] Anion gap measurement [facility] Aspartate aminotransferase [Enzymatic activity/volume] in Serum or Plasma [facility] Work Phone: Aspartate aminotransferase [Enzymatic activity/volume] in Serum or Plasma [facility] Aspartate aminotransferase [Enzymatic activity/volume] in Serum or Plasma [facility] Bacteria identified in Urine by Culture Urine Culture [facility] Work Phone: Bilirubin measuremen t, urine [facility] Bilirubin, total measurement [facility] Work Phone: Bilirubin, total measurement [facility] Bilirubin, total measurement [facility] Bilirubin.direct [Mass/volume] in Serum or Plasma [facility] BUN/Creatinine ratio [facility] Work Phone: BUN/Creatinine ratio [facility] BUN/Creatinine ratio [facility] BUN/Creatinine ratio [facility] BUN/Creatinine ratio [facility] BUN/Creatinine ratio [facility] Calcium [Mass/volume ] in Serum or Plasma [facility] Work Phone: Calcium [Mass/volume ] in Serum or Plasma [facility] Calcium [Mass/volume ] in Serum or Plasma [facility] Calcium [Mass/volume ] in Serum or Plasma [facility] Calcium [Mass/volume ] in Serum or Plasma [facility] Calcium [Mass/volume ] in Serum or Plasma [facility] Carbon dioxide, tota l [Moles/volume] in Serum or Plasma [facility] Work Phone: Carbon dioxide, tota l [Moles/volume] in Serum or Plasma [facility] Carbon dioxide, tota l [Moles/volume] in Serum or Plasma [facility] Carbon dioxide, tota l [Moles/volume] in Serum or Plasma [facility] Carbon dioxide, tota l [Moles/volume] in Serum or Plasma [facility] Carbon dioxide, tota l [Moles/volume] in Serum or Plasma [facility] Cardiac event recording [facility] Chloride [Moles/volu me] in Serum or Plasma [facility] Work Phone: Chloride [Moles/volu me] in Serum or Plasma [facility] Chloride [Moles/volu me] in Serum or Plasma [facility] Chloride [Moles/volu me] in Serum or Plasma [facility] Chloride [Moles/volu me] in Serum or Plasma [facility] Chloride [Moles/volu me] in Serum or Plasma [facility] Cholesterol [Mass/vo lume] in Serum or Plasma [facility] Work Phone: Cholesterol in HDL [Mass/volume] in Serum or Plasma [facility] Work Phone: Cholesterol in LDL [Mass/volume] in Serum or Plasma [facility] Work Phone: Clostridioides diffi cile DNA [Presence] in Unspecified specimen by ZHANE with probe detection [facility] Creatinine [Moles/vo lume] in Serum or Plasma [facility] Work Phone: Creatinine [Moles/vo lume] in Serum or Plasma [facility] Creatinine [Moles/vo lume] in Serum or Plasma [facility] Creatinine [Moles/vo lume] in Serum or Plasma [facility] Creatinine [Moles/vo lume] in Serum or Plasma [facility] Creatinine [Moles/vo lume] in Serum or Plasma [facility] End: 03-08-2026 DBT Breast - bilateral screening [facility] SCREENING [facility] Radiology Routine Encounter for screening mammogram for breast cancer 1 Occurrences starting 02/06/2025 until 03/08/2026 [facility] Work Phone: Comment on above: 1 Occurrences starting 02/06/2025 until 03/08/2026 Erythrocyte mean corpuscular volume determination [facility] Erythrocyte mean corpuscular volume determination [facility] Erythrocyte mean corpuscular volume determination [facility] Erythrocyte mean corpuscular volume determination [facility] Gastrointestinal pathogens panel - Stool by ZHANE with probe detection [facility] Glucose [Mass/volume ] in Serum or Plasma [facility] Work Phone: Glucose [Mass/volume ] in Serum or Plasma [facility] Glucose [Mass/volume ] in Serum or Plasma [facility] Glucose [Mass/volume ] in Serum or Plasma [facility] Glucose [Mass/volume ] in Serum or Plasma [facility] Glucose [Mass/volume ] in Serum or Plasma [facility] Hematocrit [Volume Fraction] of Blood [facility] Work Phone: Hematocrit [Volume Fraction] of Blood [facility] Hematocrit [Volume Fraction] of Blood [facility] Hematocrit [Volume Fraction] of Blood [facility] Hematocrit [Volume Fraction] of Blood [facility] Hemoglobin [Mass/vol ume] in Blood [facility] Work Phone: Hemoglobin [Mass/vol ume] in Blood [facility] Hemoglobin [Mass/vol ume] in Blood [facility] Hemoglobin [Mass/vol ume] in Blood [facility] Hemoglobin [Mass/vol ume] in Blood [facility] Hemoglobin [Presence ] in Urine [facility] Hemoglobin A1c/Hemoglobin.total in Blood [facility] INR in Blood by Coagulation assay [facility] Work Phone: Lactoferrin [Presenc e] in Stool by Immunoassay [facility] Leukocytes [#/volume ] in Blood [facility] Work Phone: Leukocytes [#/volume ] in Blood [facility] Leukocytes [#/volume ] in Blood [facility] Leukocytes [#/volume ] in Blood [facility] Leukocytes [#/volume ] in Blood [facility] Lipid 1996 panel - S sondra or Plasma [facility] Work Phone: Magnesium [Mass/volu me] in Serum or Plasma [facility] Mean corpuscular hemoglobin concentration determination [facility] Work Phone: Mean corpuscular hemoglobin concentration determination [facility] Mean corpuscular hemoglobin concentration determination [facility] Mean corpuscular hemoglobin concentration determination [facility] Mean corpuscular hemoglobin concentration determination [facility] Mean corpuscular hemoglobin determination [facility] Work Phone: Mean corpuscular hemoglobin determination [facility] Mean corpuscular hemoglobin determination [facility] Mean corpuscular hemoglobin determination [facility] Mean corpuscular hemoglobin determination [facility] Measurement of keton es in urine using dipstick [facility] Measurement of renal function [facility] Work Phone: Measurement of renal function [facility] Measurement of renal function [facility] Measurement of renal function [facility] Measurement of renal function [facility] Measurement of renal function [facility] End: 04-07-2025 MG Breast Screening OL[facility] SCREENING Radiology Routine Encounter for screening mammogram for breast cancer 1 Occurrences starting 03/08/2024 until 04/07/2025 [facility] Work Phone: Comment on above: 1 Occurrences starting 03/08/2024 until 04/07/[address] [facility] Neutrophil count [facility] Work Phone: Neutrophil count [facility] Neutrophil count [facility] Neutrophil count [facility] Neutrophil count [facility] Neutrophil percent differential count [facility] Work Phone: Neutrophil percent differential count [facility] Neutrophil percent differential count [facility] Neutrophil percent differential count [facility] Neutrophil percent differential count [facility] NM Heart Views W str ess and W radionuclide IV [facility] Ova and parasites identified in Unspecified specimen by Light microscopy [facility] Partial thromboplast in time, activated [facility] Work Phone: Patient Education [facility] Work Phone: Patient referral [facility] Work Phone: pH of Urine [facility] Platelets [#/volume] in Blood [facility] Work Phone: Platelets [#/volume] in Blood [facility] Platelets [#/volume] in Blood [facility] Platelets [#/volume] in Blood [facility] Platelets [#/volume] in Blood [facility] Polysomnography [facility] Polysomnography [facility] Potassium [Moles/vol ume] in Serum or Plasma [facility] Work Phone: Potassium [Moles/vol ume] in Serum or Plasma [facility] Potassium [Moles/vol ume] in Serum or Plasma [facility] Potassium [Moles/vol ume] in Serum or Plasma [facility] Potassium [Moles/vol ume] in Serum or Plasma [facility] Potassium [Moles/vol ume] in Serum or Plasma [facility] Prothrombin time [facility] Work Phone: Red blood cell count [facility] Work Phone: Red blood cell count [facility] Red blood cell count [facility] Red blood cell count [facility] Red blood cell count [facility] Red cell distributio n width determination [facility] Work Phone: Red cell distributio n width determination [facility] Red cell distributio n width determination [facility] Red cell distributio n width determination [facility] Red cell distributio n width determination [facility] Serum inorganic phos phate measurement [facility] Sodium [Moles/volume ] in Serum or Plasma [facility] Work Phone: Sodium [Moles/volume ] in Serum or Plasma [facility] Sodium [Moles/volume ] in Serum or Plasma [facility] Sodium [Moles/volume ] in Serum or Plasma [facility] Sodium [Moles/volume ] in Serum or Plasma [facility] Sodium [Moles/volume ] in Serum or Plasma [facility] Specific gravity of Urine [facility] T4 free measurement [facility] Work Phone: Total protein measurement [facility] Work Phone: Total protein measurement [facility] Total protein measurement [facility] Triglycerides measurement [facility] Work Phone: Troponin I measurement [facility] Work Phone: Urea nitrogen [Mass/volume] in Serum or Plasma [facility] Work Phone: Urea nitrogen [Mass/volume] in Serum or Plasma [facility] Urea nitrogen [Mass/volume] in Serum or Plasma [facility] Urea nitrogen [Mass/volume] in Serum or Plasma [facility] Urea nitrogen [Mass/volume] in Serum or Plasma [facility] Urea nitrogen [Mass/volume] in Serum or Plasma [facility] Urinalysis, blood, qualitative [facility] Urine dipstick for glucose [facility] Urine dipstick for leukocyte esterase [facility] Urine dipstick for nitrite [facility] Urine dipstick for protein [facility] Urine examination [facility] Urine microscopy: epithelial cells [facility] Urine Microscopy: wh ite cells [facility] Urobilinogen [Presen ce] in Urine [facility] US Carotid arteries [facility] Work Phone: US Heart [facility] Work Phone: VLDL cholesterol measurement [facility] Work Phone: [facility] Immunizations Immunization Date Immunization Notes Care Provider Fa cility 11-22-2023 influenza, injectabl e, quadrivalent, preservative free Dr. Jarred Lopez Work Phone: [facility] 11-22-2023 influenza virus vaccine, unspecified formulation Irena Widl [facility] 04-07-2023 pneumococcal (PCV20) vaccine, 20 valent (PREVNAR 20) Dwayne Lopez MD Work Phone: [facility] 04-07-2023 pneumococcal Conjuga te, unspecified formulation Dwayne Lopez MD Work Phone: [facility] Work Phone: 06-09-2021 tetanus toxoid, redu juan c diphtheria toxoid, and acellular pertussis vaccine, adsorbed [facility] 02-18-2021 Covid (Pfizer) [facility] 01-29-2021 Covid (Pfizer) [facility] 09-18-2019 influenza, injectabl e, quadrivalent, contains preservative Shital Patel [facility] 09-18-2019 influenza virus vaccine, unspecified formulation Irena Hood [facility] 08-17-2019 influenza, injectabl e, quadrivalent, preservative free Shital Patel MA [facility] 07-04-2018 influenza, injectabl e, quadrivalent, preservative free Shital Patel MA [facility] 07-04-2018 pneumococcal polysaccharide vaccine, 23 valent Shital Patel MA [facility] 09-07-2013 influenza, injectable,quadrivalent , preservative free, pediatric [facility] 09-07-2013 influenza, seasonal, injectable, preservative free Shital Patel MA [facility] 11-23-2012 pneumococcal polysaccharide vaccine, 23 valent Shital Patel MA [facility] 11-23-2012 Pneumococcal Vaccine [facility] Work Phone: 11-23-2012 pneumococcal vaccine , unspecified formulation Dr. Ganesh Garcia Work Phone: [facility] 08-14-2010 influenza, seasonal, injectable Angelika De La Torre [facility] Work Phone: 03-10-2010 influenza, seasonal, injectable; Translations: [Follow Up Appt 2 weeks] Angelika De La Torre [facility] Work Phone: 09-11-2009 novel [id number], preservative-free, injectable Shital Patel MA [facility] 10-10-2008 pneumococcal polysaccharide vaccine, 23 valent Shital Patel MA [facility] 08-25-2008 influenza virus vaccine, unspecified formulation Shital Patel [facility] Work Phone: 04-24-2006 tetanus and diphther ia toxoids, adsorbed, preservative free, for adult use (2 Lf of tetanus toxoid and 2 Lf of diphtheria toxoid) Shital Patel [facility] Work Phone: Payers Date Payer Category Payer Unknown [id number] 2024 Medicare [id number] 2024 Self-pay [id number] 2024 Medicaid [id number] 2024 Private Health Insurance [id number] 2022 Medicare (Managed Care) VINH NUNES [facility] [id number] 2022 Unknown ANTHEM BLUE CROS S AND BLUE SHIELD ANTHEM MEDIBLUE O [id number] 2022-Present [phone] [place] [address] O [id number]. [id number] 2022 Unknown [id number]. 1.13.159.2. [id number] 2014 Medicaid [id number] Medicare [id number] Unknown [id number] 2.16.840.1.294797.3.579.2. 273 Unknown [id number] 2.16.840.1.509600.3.579.2. 273 Unknown [id number] 2.16.840.1.053287.3.579.2. 273 Unknown [id number] 2.16.840.1.104106.3.579.2. 273 Unknown [id number] 2.16.840.1.349901.3.579.2. 273 Unknown [id number] 2.16.840.1.297715.3.579.2. 462 Unknown [id number] 2.16.840.1.494115.3.579.2. 462 Unknown [id number] 2.16.840.1.582767.3.579.2. 462 Unknown [id number] 2.16.840.1.049540.3.579.2. 462 Unknown [id number] 2.16.840.1.848991.3.579.2. 462 Unknown [id number] 2.16.840.1.485213.3.579.2. 462 Unknown [id number] 2.16.840.1.334586.3.579.2. 462 Unknown [id number] 2.16.840.1.768007.3.579.2. 462 Unknown [id number] 2.16.840.1.918633.3.579.2. 462 Unknown [id number] 2.16.840.1.224592.3.579.2. 462 Unknown [id number] 2..840.1.860449.3.579.2. 462 Unknown [id number] 2.16.840.1.835027.3.579.2. 462 Unknown [id number] 2.16.840.1.536671.3.579.2. 462 Unknown [id number] 2..840.1.055715.3.579.2. 462 Unknown [id number] 2..840.1.493174.3.579.2. 462 Unknown [id number] 2.16.840.1.661706.3.579.2. 462 Unknown [id number] 2.16.840.1.787515.3.579.2. 462 Unknown [id number] 2.16.840.1.175653.3.579.2. 462 Unknown [id number] 2.16.840.1.719881.3.579.2. 462 Unknown [id number] 2.16.840.1.204810.3.579.2. 462 Unknown [id number] 2.16.840.1.355086.3.579.2. 462 Unknown [id number] 2.16.840.1.820785.3.579.2. 462 Unknown [id number] 2.16.840.1.728271.3.579.2. 462 Unknown [id number] 2.16.840.1.896513.3.579.2. 462 Unknown [id number] 2.16.840.1.369992.3.579.2. 462 Unknown [id number] 2.16.840.1.092294.3.579.2. 462 Unknown [id number] 2.16.840.1.417774.3.579.2. 462 Unknown [id number] 2.840.1.251908.3.579.2. 462 Unknown [id number] 2.840.1.895283.3.579.2. 462 Unknown [id number] 2.840.1.335178.3.579.2. 462 Unknown [id number] 2.840.1.032123.3.579.2. 462 Unknown [id number] 2..840.1.376135.3.579.2. 462 Unknown [id number] 2.840.1.891280.3.579.2. 462 Unknown [id number] 2.16840.1.398794.3.579.2. 462 Unknown [id number] 2.840.1.438318.3.579.2. 462 Unknown [id number] 2.16.840.1.379294.3.579.2. 462 Unknown [id number] 2.16.840.1.443017.3.579.2. 462 Unknown [id number] 2.16.840.1.630513.3.579.2. 462 Unknown [id number] 2.16840.1.313314.3.579.2. 462 Unknown [id number] 2.840.1.324576.3.579.2. 462 Unknown [id number] 2.16.840.1.156139.3.579.2. 462 Unknown [id number] 2.16.840.1.323189.3.579.2. 462 Unknown [id number] 2.16.840.1.696737.3.579.2. 462 Unknown [id number] 2.16.840.1.785542.3.579.2. 462 Unknown [id number] 2.16.840.1.053087.3.579.2. 462 Unknown [id number] 2.16.840.1.845105.3.579.2. 462 Unknown [id number] 2.16.840.1.017939.3.579.2. 462 Unknown [id number] 2.16840.1.880243.3.579.2. 462 Unknown [id number] 2.840.1.721870.3.579.2. 462 Unknown [id number] 2.840.1.033812.3.579.2. 462 Unknown [id number] 2.840.1.879383.3.579.2. 462 Unknown [id number] 2.16840.1.244934.3.579.2. 462 Unknown [id number] 2.16840.1.456045.3.579.2. 462 Unknown [id number] 2.16.840.1.667229.3.579.2. 462 Unknown [id number] 2.16.840.1.690622.3.579.2. 462 Unknown [id number] 2.16.840.1.359664.3.579.2. 462 Unknown [id number] 2.16.840.1.195051.3.579.2. 462 Unknown [id number] 2.16.840.1.148080.3.579.2. 462 Unknown [id number] 2.16840.1.617558.3.579.2. 462 Unknown [id number] 2.16.840.1.625543.3.579.2. 462 Unknown [id number] 2.16.840.1.127806.3.579.2. 462 Unknown [id number] 2.16.840.1.404616.3.579.2. 462 Unknown [id number] 2.16.840.1.558870.3.579.2. 462 Unknown [id number] 2.16.840.1.622447.3.579.2. 462 Unknown [id number] 2.16.840.1.050321.3.579.2. 462 Unknown [id number] 2.16.840.1.722663.3.579.2. 462 Unknown [id number] 2.16.840.1.458112.3.579.2. 462 Unknown [id number] 2.16.840.1.440251.3.579.2. 462 Unknown [id number] 2.16.840.1.631593.3.579.2. 462 Unknown [id number] 2.16.840.1.640364.3.579.2. 462 Unknown [id number] 2.16.840.1.342291.3.579.2. 462 Social History Date Type Detail Facility Start: 01-13-2022 End: 01-20-2024 Tobacco smoking status PAIS Unknown if ever smoked [facility] Start: 04-08-2019 Occasional [facility] Start: 12-12-2020 None [facility] Start: 02-28-2021 Homeless [facility] Start: 02-28-2021 Cigarettes [facility] Start: 1965 Sex Assigned At Female [facility] Start: 10-21-2020 End: 03-24-2023 Tobacco smoking status PAIS Ex-smoker [facility] Start: 06-25-1977 End: 10-07-2020 History of tobacco use Current smoker [facility] Start: 06-25-1977 End: 10-07-2020 History of tobacco use Cigarette Smoker [facility] Start: 10-21-2020 End: 11-19-2022 Cigarettes smoked current (pack per day) - Reported 0.5 [facility] Start: 10-21-2020 End: 03-24-2023 Tobacco use and exposure Smokeless tobacco non-user [facility] Start: 10-31-2021 End: 08-10-2023 Alcohol intake Current non-drinker of alcohol (finding) [facility] Start: 05-27-2015 History SDOH Alcohol Comment Seldom- twice yearly [facility] Start: 1965 Sex Assigned At Not on file C [facility] Start: 11-19-2022 End: 04-23-2023 Tobacco use panel [facility] National Score (1-10 0), lower number is lower risk 70 [facility] Start: 01-22-2025 End: 01-26-2025 Sex Female (finding) [facility] Medical Equipment Procedure Code Equipment Code Equipment Origin al Text Equipment Identifier Dates TEST STRIPS TEST STRIPS [id number] Start: 08-14-2010 LANCET LANCET [id number] Start: 08-14-2010 INSULIN PEN NEEDLE [id number] Start: 08-14-2010 Comment on above: Test blood [...] Yes. Pt uses Freestyle Lite Insulinx Meter [id number] Start: 12-26-2019 use to test bloo d sugar THREE TIMES DAILY [id number] Start: 12-26-2019 Use one needle f or each dose. four/day. [id number] Start: 09-18-2019 Test blood sugar(s) 3 times daily. Dx: Type 2 DM - Uncontrolled E11.65 Insulin: Yes [id number] Start: 05-07-2016 Pen Needle,Diabetic, Disp Unit 29 gauge x 1/2" needle Start: 06-23-2021 End: 11-24-2023 Goals Date Patient Goal Desired Activity /State Personal health goal Functional Status Date Assessment Result Facility 01-05-2024 Functional status Bedrest [facility] Work Phone: 01-03-2024 Functional status Bedside Commode [facility] Work Phone: 11-24-2023 Functional status Ambulates [facility] Work Phone: 05-21-2022 Functional status Ambulates;Beds giuseppe [facility] Work Phone: 04-25-2022 Functional status Bedpan [facility] Work Phone: 04-25-2022 Functional status None [facility] Work Phone: 03-30-2022 Functional status Ambulates;[facility]rent [facility]: 03-20-2022 Functional status Activity Abili ty Unable to Assess [facility] Work Phone: 05-27-2015 Are you deaf, or do you have serious difficulty hearing No 05/27/2015 2:20 PM Faith Vogel RN [facility] Work Phone: 05-27-2015 Are you blind, or do you have serious difficulty seeing, even when wearing glasses No 05/27/2015 2:20 PM Faith Vogel RN No [facility] 05-27-2015 Do you have serious difficulty walking or climbing stairs No 05/27/2015 2:20 PM Faith Vogel RN No [facility] 05-27-2015 Do you have difficul ty dressing or bathing No 05/27/2015 2:20 PM Faith Vogel RN No [facility] 05-27-2015 Because of a physica l, mental, or emotional condition, do you have difficulty doing errands alone such as visiting a physician's office or shopping No 05/27/2015 2:20 PM Faith Vogel RN [facility] Status Date Assessment Result Facility 01-22-2025 Cognitive function Awake;Alert;A ppropriate;Fol lows Commands [facility] Work Phone: 01-20-2024 Cognitive function Awake;Alert;A ppropriate;Fol lows Commands [facility] Work Phone: 01-05-2024 Cognitive function Voice/Name [facility] Work Phone: 01-03-2024 Cognitive function Voice/Name [facility] Work Phone: 01-01-2024 Cognitive function Voice/Name [facility] Work Phone: 11-24-2023 Cognitive function Voice/Name [facility] Work Phone: 11-19-2023 Cognitive function Level Of Cons ciousness Awake;Alert;Appropriate;Fol lows Commands [facility] Work Phone: 06-06-2023 Cognitive function Level Of Cons ciousness Awake;Alert;Appropriate;Fol lows Commands [facility] Work Phone: 01-29-2023 Cognitive function Awake;Alert;A ppropriate;Fol lows Commands [facility] Work Phone: 11-05-2022 Cognitive function Voice/Name [facility] Work Phone: 08-24-2022 Cognitive function Voice/Name [facility] Work Phone: 05-21-2022 Cognitive function Voice/Name [facility] Work Phone: 05-20-2022 Cognitive function Level Of Cons ciousness Awake;Alert;Appropriate;Fol lows Commands [facility] Work Phone: 05-03-2022 Cognitive function Awake;Alert;A ppropriate;Fol lows Commands [facility] Work Phone: 04-25-2022 Cognitive function Voice/Name [facility] Work Phone: 03-30-2022 Cognitive function Comprehension Ability Demonstrates ability to follow instructions/comprehend [facility] Work Phone: 03-30-2022 Cognitive function Level Of Cons ciousness Awake;Alert [facility] Work Phone: 03-29-2022 Cognitive function Voice/Name [facility] Work Phone: 03-20-2022 Cognitive function Voice/Name [facility] Work Phone: 02-24-2022 Cognitive function Voice/Name [facility] Work Phone: 01-13-2022 Cognitive function Level Of Cons ciousness Awake;Alert;Appropriate;Fol lows Commands [facility] Work Phone: 05-27-2015 Because of a physica l, mental, or emotional condition, do you have serious difficulty concentrating, remembering, or making decisions No 05/27/2015 2:20 PM EDT Faith Charles RN No [facility] Clinical Notes 07-23-2015 to 03-21-2025 Kimmy Jackson - 03/21/2025 12:26 PM EDRaisa Reyna - 03/20/2025 12:25 PM Elizabeth [address] [facility] - 02/12/2025 11:26 AM EDT Note Date & Type Note Facility 03-21-2025 Note HNO ID: [id number] Author: ?, ?, ? Service: ? Author Type: ? Type: Progress Notes Filed: 04/12/2025 13:13 Note Text: Diabetes Outreach Terrance Brar has been identified for clinical review due to having diabetes without a Hemoglobin A1c in the past 1 year. PSS Team - Please contact the patient with the following script: "Dwayne Lopez MD has identified that you are in need of ongoing care of your diabetes and have not had blood work for your diabetes (hemoglobin A1c) in the past year. We would like to assist you in making an appointment to ensure that we control your diabetes and keep you as healthy as possible." Outreach Outcome/Action: Unable to reach patient: Due to phone issue in WSTR unable to call out to this number Note - if they see another provider, please update their chart. [facility] 03-21-2025 History of Present illness Narrative Diabetes Outreach Terrance Brar has been identified for clinical review due to having diabetes without a Hemoglobin A1c in the past 1 year. PSS Team - Please contact the patient with the following script: "Dwayne Lopez MD has identified that you are in need of ongoing care of your diabetes and have not had blood work for your diabetes (hemoglobin A1c) in the past year. We would like to assist you in making an appointment to ensure that we control your diabetes and keep you as healthy as possible." Outreach Outcome/Action: Unable to reach patient: Due to phone issue in WSTR unable to call out to this number Note - if they see another provider, please update their chart. documented in this encounter [facility] 03-21-2025 Note Patient Outreach (4C Q) TERRANCE BRAR ([id number]) 1965 F Date Time Provider Department 03/21/25 DWAYNE LOPEZ 4CQ During your visit today, we recorded the following information about you: Kimmy Jackson 04/12/2025 1:13 PM Signed Diabetes Outreach Terrance Brar has been identified for clinical review due to having diabetes without a Hemoglobin A1c in the past 1 year. PSS Team - Please contact the patient with the following script: "Dwayne Lopez MD has identified that you are in need of ongoing care of your diabetes and have not had blood work for your diabetes (hemoglobin A1c) in the past year. We would like to assist you in making an appointment to ensure that we control your diabetes and keep you as healthy as possible." Outreach Outcome/Action: Unable to reach patient: Due to phone issue in WSTR unable to call out to this number Note - if they see another provider, please update their chart. Allergies As of Date: 03/21/2025 Noted Allergy Reaction CELEBREX (CELECOXIB) 12/26/2019 2 [...] LPN - Fully Assessed Reason for Visit: Diabetes [34] Prescriptions as of 04/12/2025 - dulaglutide (TRULICITY) 3 mg/0.5 mL pen [...] blood sugar THREE TIMES DAILY - Insulin [place], Disposable, (BD ULTRA-FINE BEN PEN NEEDLE) 32 gauge x 5/32" ndle Use one needle for each dose. four/day. - aspirin 81 mg chewable tablet DAILY@0800 - Lancets lancets Test blood sugar(s) 3 times daily. 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 [facility] 03-20-2025 Note HNO ID: [id number] Author: ?, ?, ? Service: ? Author [...] Raisa Martínez March 20, 2025 12:25 PM [facility] 03-20-2025 History of Present illness Narrative POPULATION HEALTH [...] 2025 12:25 PM documented in this encounter [facility] 03-20-2025 Note Patient Outreach (NE NILAAV) TERRANCE BRAR ([id number]) 1965 F Date Time Provider Department 03/20/25 DWAYNE LOPEZ During your visit today, we recorded the following information about you: Raisa Epps 03/20/2025 12:51 PM Signed POPULATION HEALTH NAVIGATION OUTREACH Action/FYI Patient outreach for Hcc gaps; Mammogram, A1C, COLO, RUSSELL, KED, BP. AWV. LVM to schedule. After further review, pt is in a PA follows with facility doctor. Reason for Outreach [...] Visit: Population Health Navigation Outreach [3910] Cmt: [employer] Workbencjessica Ronnie Prescriptions as of 03/20/2025 - dulaglutide (TRULICITY) [...] blood sugar THREE TIMES DAILY - Insulin [place], Disposable, (BD ULTRA-FINE BEN PEN NEEDLE) 32 [...] [E04.1] 12/07/2008 Routine General Medical Examination at [facility]*12/10/2008 06/03/2015 Benign neoplasm of colon [D12.6] [...] finger [M65.351] 0 (more content not included)... [facility] 02-12-2025 History of Present illness Narrative Primary Care Pharmacy Panel Management This patient has been identified through Specialty Integration/Value-Based Operations Diabetes Registry Review by the primary care pharmacy team. After review, determined that the patient is not a candidate for pharmacy referral at this time due to questionable attribution. Elizabeth Jennings RPh documented in this encounter [facility] 02-12-2025 Note HNO ID: [id number] Author: ELIZABETH JENNINGS RPh Service: ? Author Type: Pharmacist Type: Progress Notes Filed: 02/12/2025 11:27 Note Text: Primary Care Pharmacy Panel Management This patient has been identified through Specialty Integration/Value-Based Operations Diabetes Registry Review by the primary care pharmacy team. After review, determined that the patient is not a candidate for pharmacy referral at this time due to questionable attribution. Elizabeth Jennings RPh [facility] 02-12-2025 Note Patient Outreach ( MEWO) TERRANCE BRAR ([id number]) 1965 F Date Time Provider Department 02/12/25 ELIZABETH JENNINGS PHMEWO During your visit today, we recorded the [...] blood sugar THREE TIMES DAILY - Insulin [place], Disposable, (BD ULTRA-FINE BEN PEN NEEDLE) 32 [...] [E04.1] 12/07/2008 Routine General Medical Examination at [facility]*12/10/2008 06/03/2015 Benign neoplasm of colon [D12.6] [...] mass, left [N6 (more content not included)... [facility] 02-06-2025 Note Patient Outreach (FA MPWS) TERRANCE BRAR ([id number]) 1965 F Date Time Provider Department 02/06/25 [...] for screening mammogram for breast cancer [Z12.31] Order(s):OLIVER SCREENING W MIKE [[id number]] Order #: [id number] FUTURE Prescriptions as of 03/09/2025 - dulaglutide [...] blood sugar THREE TIMES DAILY - Insulin [place], Disposable, (BD ULTRA-FINE BEN PEN NEEDLE) 32 [...] [E04.1] 12/07/2008 Routine General Medical Examination at [facility]*12/10/2008 06/03/2015 Benign neoplasm of colon [D12.6] [...] dependence, continuous (HCC (more content not included)... [facility] 01-30-2025 Evaluation note Diagnosis Onset Date Resolution Atherosclerotic heart disease of [place] coronary artery without angina pectoris acute January 30, 2025 1:52pm Essential hypertension acute Ap 2024 1:52pm Hyperlipidemia acute January 30, 2025 1:52pm Chest pain noneactive January 30 1:52pm [facility] Work Phone: 1([phone]) 449-369803-31-2025 Radiology Diagnostic study [facility]03-14-2025 NoteHNO ID: [id number] Author: ?, ?, ? Service: ? Author Type: ? Type: Progress Notes Filed: 01/05/2025 13:14 Note Text: Patient is identified through a medication adherence outreach initiative based on pharmacy claims data from: Medication Review Medication Adherence Category: Statins First Review Attribution Status: Correctly Attributed but Patient in SNF [facility] History of Present illness Narrative* Syeda Markham - 01/05/2025 1:13 PM EDT Patient is identified through a medication adherence outreach initiative based on pharmacy claims data from: Medication Review Medication Adherence Category: Statins First Review Attribution Status: Correctly Attributed but Patient in SNF [facility] Based [facility] Pharmacy Team documented in this encounterPaul[facility] NotePatient Outreach (PHPOHE) TERRANCE BRAR ([id number]) 1965 F Date Time Provider Department 01/05/25 DWAYNE LOPEZ During your visit today, we recorded the following information about you: Syeda Markham 01/05/2025 1:14 PM Signed Patient is identified through a medication adherence outreach initiative based on pharmacy claims data from: Medication Review Medication Adherence Category: Statins First Review Attribution Status: Correctly Attributed but Patient in SNF Syeda Porsha Markham [place] Based Care Pharmacy Team Allergies As of [...] blood sugar THREE TIMES DAILY - Insulin [place], Disposable, (BD ULTRA-FINE BEN PEN NEEDLE) 32 [...] 12/07/2008 Routine General Medical Examination at a [facility]*12/10/2008 06/03/2015 Benign neoplasm of colon [...] Hyponatremia [E87.1] 09/18/2019 Eczema (more content not included)...[facility]02-05-2025 Note HNO ID: [id number] Author: ASHISH BRAY MA Service: ? Author Type: Silk Conditioner Type: Progress Notes Filed: 11/29/2024 14:54 Note [...] Ashish Bray MA November 29, 2024 2:[facility] History of Present illness Narrative* Ashish Bray MA - 11/29/2024 2:51 PM EST POPULATION HEALTH NAVIGATION OUTREACH Action/FYI msg to schedule wellness, hcc gap closure, follow up, ked/ uacr , and bmp and hgba1c not pended Patricia didn't speak to the patient, colonoscopy, diabetic [...] 29, 2024 2:51 PM documented in this encounterPaulding [facility]02-[facility] NotePatient Outreach (NETNAV) TERRANCE BRAR ([id number]) 1965 F Date Time Provider Department 11/29/24 ASHISH BRAY NETHELEN During your visit today, we recorded the [...] Population Health Navigation Outreach [3910] Cmt: Nikki trujillo Prescriptions as of 11/29/2024 - dulaglutide [...] blood sugar THREE TIMES DAILY - Insulin [place], Disposable, (BD ULTRA-FINE BEN PEN NEEDLE) 32 [...] [E04.1] 12/07/2008 Routine General Medical Examination at [facility]*12/10/2008 06/03/2015 Benign neoplasm of colon [D12.6] [...] [M65.331] 06/21/2017 Trigger finger, (more content not included)...[facility] 09-08-2024 NoteHNO ID: [id number] Author: IRENA WILD, ? Service: ? Author Type: Patient Store Sales Consultant Type: Progress Notes Filed: 09/08/2024 10:26 Note Text: POPULATION HEALTH NAVIGATION OUTREACH Action/JOEL Justice No PCP Pt is established with Dr. Lopez; PCP updated Reason for Outreach Care Gap/HCC or Scheduling Wellness Visits Care Gaps due: N/A Patient Contacted: Unable or unnecessary to reach patient: PCP field updated Navigation Signature: Irena Wild September 08, 2024 10:25 [facility]11-15-2024 History of Present illness Narrative* Irena Wild - 09/08/2024 10:20 AM EST POPULATION HEALTH NAVIGATION OUTREACH Action/JOEL Justice No PCP Pt is established with Dr. Lopez; PCP updated Reason for Outreach Care Gap/HCC or Scheduling Wellness Visits Care Gaps due: N/A Patient Contacted: Unable or unnecessary to reach patient: PCP field updated Navigation Signature: Irena Wild September 08, 2024 10:25 AM documented in this encounterPaulding [facility]11-[facility] NotePatient Outreach (NETNAV) TERRANCE BRAR ([id number]) 1965 F Date Time Provider Department 09/08/24 IRENA WILDV During your visit today, we recorded the following information about you: Irena Wild 09/08/2024 10:26 AM Addendum POPULATION HEALTH NAVIGATION OUTREACH Action/FYI Vinh Dykes PCP Pt is established with Dr. Lopez; [...] Population Health Navigation Outreach [3910] Cmt: Vinh Dykes PCP Prescriptions as of 09/08/2024 - dulaglutide [...] blood sugar THREE TIMES DAILY - Insulin [place], Disposable, (BD ULTRA-FINE BEN PEN NEEDLE) 32 [...] [E04.1] 12/07/2008 Routine General Medical Examination at [facility]*12/10/2008 06/03/2015 Benign neoplasm of colon [D12.6] [...] or gangr*09/04/2019 Lumbar radiculop (more content not included)...[facility] 04-06-2024 History of Present illness Narrative* Mel Peacock RN - 04/06/2024 10:55 AM EDT ED Follow-Up Note Provider Action / FYI: [...] the ED visit. Pt currently resides @ [facility] and follows a provider @ the facility Placed pt on attrib list for Vinh Patient seen in ED: Out of [facility] ED Contact made with Patient: Yes The patient was identified by Name and Date of . Discussed Care with: patient Patient was seen in the Emergency Department (ED) Location: [place] Date: 04/02/24 Reason for ED Visit: CP and blood sugar 44 ED Intervention: cardiac enzymes,EKG per pt Currently experiencing nausea and vomiting but PLASTICS REPAIRER in to see pt today regarding current symptoms Based on soil conservation aide, the following disposition is advised: No symptoms or symptoms present, not severe. Routed to: No Action Needed JUAN Education Provided this Outreach: No Mel Peacock RN April 06, 2024 11:01 AM documented in this encounterPaulding [facility]06-04-[facility] History of Present illness Narrative* Mel Peacock RN - 03/28/2024 2:17 PM EDT ED Follow-Up Note Provider Action / FYI: 2nd er outreach call to pt but unable to reach Outreach was attempted with this patient via telephone regarding the patient's recent [facility] ED visit. Patient did not answer at time of call. A voicemail message was left. Will re-attempt call. Patient seen in ED: Out of [facility] ED ER vs to lowber on 03/24/24 Contact made with Patient: No, left message. Mel Peacock RN March 28, 2024 2:20 PM * Mel Peacock RN - 03/28/2024 11:48 AM EDT ED Follow-Up Note Provider Action / FYI: Outreach was attempted with this patient via telephone regarding the patient's recent [facility] ED visit. Patient did not answer at time of call. A voicemail message was left. Will re-attempt call. Patient seen in ED: Out of [facility] ED ER vs to lowber on 03/24/24 Contact made with Patient: No, left message. Mel Peacock RN March 28, 2024 11:51 AM documented in this encounterPaulding [facility] Hospital05-29-2024 Telephone encounter Note * Telephone Encounter - Shonda Valladares LPN - 03/22/2024 2:08 PM EDT Patient scheduled for 04/18/2024 at 1220 with Jesica Ottlogzachary. Shonda Valladares LPN [facility]05-29-2024 Miscellaneous Notes* Telephone Encounter - Shonda Valladares LPN - 03/22/2024 2:08 PM EDT Patient scheduled for 04/18/2024 at 1220 with Jesica Podlogar. Shonda Valladares LPN * Telephone Encounter - Dwayne Lopez MD - 03/21/2024 6:38 PM EDT Patient overdue for OV. Please call to schedule appointment in the next 1 month. . * Telephone Encounter - Syeda Markham - 03/21/2024 5:24 PM EDT Patient reviewed for Population Health Medication Adherence Pended the following prescription(s) for review. Requested Prescriptions Pending Prescriptions Disp Refills atorvastatin (LIPITOR) 40 mg tablet 90 tablet 3 Sig: Take 1 tablet by mouth once daily. No future appointments. Please review and refill if appropriate. Thank you. Syeda Markham March 21, 2024 5:24 PM documented in this encounterPaulding [facility] Hospital05-28-2024 Telephone encounter Note * Telephone Encounter - Dwayne Lopez MD - 03/21/2024 6:38 PM EDT Patient overdue for OV. Please call to schedule appointment in the next 1 month. . [facility]05-28-[facility] Telephone encounter Note* Telephone Encounter - JahjyotiSyeda - 03/21/2024 5:24 PM EDT Patient reviewed for Population Health Medication Adherence Pended the following prescription(s) for review. Requested Prescriptions Pending Prescriptions Disp Refills atorvastatin (LIPITOR) 40 mg tablet 90 tablet 3 Sig: Take 1 tablet by mouth once daily. No future appointments. Please review and refill if appropriate. Thank you. Syeda Markham March 21, 2024 5:24 PM [facility]04-25-2024 History of Present illness Narrative* Annabel Agrawal MA - 02/17/2024 7:06 AM EDT POPULATION HEALTH NAVIGATION OUTREACH Action/FYI Patient is on [facility] 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 Workbench list for [...] 17, 2024 7:07 AM documented in this encounterPaulding County Hospital04-18-[facility]24 History of Present illness Narrative* Ariadna Kyle - 02/10/2024 10:45 AM EDT Terrance Brar is identified through a medication adherence outreach initiative based on pharmacy claims data from [employer] (insurer) for Non-insulin DM medication(s). Patient is [...] reconcile dispense Ariadna Kyle documented in this encounterPaulding County Hospital04-01-2024 Miscellaneous Notes* Telephone Encounter - Rachel Perea LPN - 01/24/2024 12:59 PM EDT Phoned patient to schedule ER follow up visit. Patient reported she is not able to come in this week due their car is being repaired. Agreed to 02/01/24 at 2pm for 40 min visit. documented in this encounterPaulding County Hospital03-28-2024 Discharge summary Author Ellis Peterson [facility] January 20, 2024 4:19am Note Date/Time January 20, 2024 1:2 2am [facility] Medical Records Department [address] [place] [address] Emergency Department Summary 01/20/24 MR#: [id number] Acct: [id number] Name: TERRANCE BRAR Rep #:[id number] : 1965 58 From: Ellis Peterson MD PCP: Dr. Jarred Lopez MD Status :REG ER Location: ED HPI History of Present Illness Chief Complaint: Chest Pain Narrative Narrative: 58-year-old female presents from [facility] with sharp, stabbing chest pain that awoke [...] chest pain that awoke her from sleep. [facility] Medical History Anxiety and depression Carpal [...] for therapy for chronic back pain housing: shelter Smoking Status: Former smoker Tobacco: How many [...] for pain and nausea, I reviewed her shelter paperwork and she has history of chronic pain. She was given 1 oxycodone tablet here and Zofran ODT. As long as her second troponin does not show a large delta troponin, I do feel that she would be able to be discharged back to the alf facility. As her second troponin is 21 and she has a negative delta troponin, I feel she can be discharged to follow-up. Disposition is discharged to the alf facility in stable condition. History & Record [...] % (Auto) 58.1 Lymph % (Auto) 34.1 [place] % (Auto) 5.5 Eos % (Auto) 1.4 [...] Signed: Edward Rush MD at 2:09 EDT , Discharge Plan Triage Chief Complaint: Chest [...] 3-5 Days if not improving Disposition Disposition: Detention Facility Discharge Location: [facility] What to do if you have Problems For any increased pain, shortness of breath, bleeding, nausea or vomiting, chestpain, or any unexpected problems, contact your Primary Care Provider. Call [facility] ([phone]) or report to the closest Emergency Room. Call 911 if necessary. 01/20/24 0417 <Electronically signed by Ellis Peterson MD> Cosigner Signature (if applicable): CC: Dr. Jarred Lopez MD ~ Signed [facility] Work Phone: 1(684) 103-154003-14-2024 History of Present illness Narrative* Rachel Perea LPN - 01/06/2024 1:34 PM EDT TRANSITION CARE MANAGEMENT (TCM) INITIAL CONTACT Silk Conditioner Outreach Provider Action/FYI: Initial contact with patient post discharge, spoke to patient. Patient identified by name and . TRANSITION CARE MANAGEMENT INITIAL OUTREACH DOCUMENTATION: 01/06/2024 Date of Outreach: Outreach Attempt 1: Contact Made Date of Discharge 01/05/2024 SUMMARY: -Pt discharged from [facility] on 01/05/24. -Admitted for:1) PE 2)Chest [...] hospitalization: Provider reviewed 01/06/24 documented in this encounterPaulding County Hospital03-14-2024 Miscellaneous Notes* Telephone Encounter - Rachel Perea LPN - 01/06/2024 12:57 PM EDT Phoned patient and agreeable with 01/13/24 at 2pm for Hosp F/U documented in this encounterPaulding County Hospital03-13-2024 Discharge summary Author Ana Rivera [facility] January 05, 2024 11:34am Note Date/Time January 05, 2024 11: 34am [facility] Medical Records Department [address] [address] [facility] MR#: [id number] Acct: [id number] Name: TERRANCE BRAR Rep #:[id number] : 1965 58 From: Ana Rivera DO PCP: Dr. Jarred Lopez MD Status :ADM HOMER Certification of patient admission REQUIRED AT TIME OF ADMISSION. I CERTIFY THAT POST-HOSPITAL ECF SERVICES ARE REQUIRED TO BE GIVEN ON AN IN-PATIENT BASIS BECAUSE OF THE ABOVE NAMED PATIENT'S NEED FOR USP CARE ON A CONTINUING BASIS FOR THE CONDITION(S) FOR WHICH HE/SHE WAS RECEIVING IN-PATIENT HOSPITAL SERVICES PRIOR TO HIS/HER TRANSFER TO THE F. 01/05/24 1134<Electronically signed by Ana Rivera DO> [...] weeks Please Follow Up With: Miriam Cameron PLASTICS REPAIRER, PLASTICS REPAIRER-C When: 1 month Discharge Plan Admission Admit [...] MD [Primary Care Provider] - Miriam Cameron PLASTICS REPAIRER, PLASTICS REPAIRER-C [Non-Staff -Ordering Privileges] - Within 1 Month (CAD follow up) Disposition Disposition (needs filled in before D/C Order can be placed): Detention Facility 01/05/24 1134 <Electronically signed by Ana Rivera DO> Cosigner Signature (if applicable): CC: Dr. Chavez Alcala DO; Dr. Hansa Cast MD; Dr. Jarred Lopez MD ~ [facility] Work Phone: 1(144) 667-469603-13-2024 Discharge summary Author Ana [facility] January 05, 2024 11:32am Note Date/Time January 05, 2024 11: 17am [facility] Medical Records Department [address] [place] [address] Discharge Summary 01/05/24 1116 MR#: [id number] Acct: [id number] Name: TERRANCE BRAR Rep #:[id number] : 1965 58 From: Ana Rivera DO PCP: Dr. Jarred Lopez MD Status :ADM HOMER Location: [place] [address] Providers Date of Admission: 01/01/24 Date of [...] who presented to the emergency department at [facility] from her alf facility for acute onset chest pain with [...] since she has followed up with her client service consultant. She was strongly encouraged to continue incentive [...] skilled services so she was discharged to [facility] after pre-CERT was obtained on [...] [Primary Care Provider] - Miriam Cameron NP, PLASTICS REPAIRER-C [Non-Staff -Ordering Privileges] - Within 1 Month (CAD follow up) Disposition Disposition (needs filled in before D/C Order can be placed): Detention Facility Charges/Coding Visit Charges Inpatient E&M: 78766 SNF Disch >30 Min 01/05/24 1132 <Electronically signed by Ana Rivera DO> Cosigner Signature (if applicable): CC: FRANSISCO Cameron; Dr. Jarred Lopez MD; Dr. Ana Rivera DO~ Signed [facility] Work Phone: 1(402) 215-767203-12-2024 Progress note Author Ana Rivera [facility] January 04, 2024 4:59pm Note Date/Time January 04, 2024 5:0 0pm [facility] Medical Records Department [address] [place] [address] Progress Note - Hospitalist 01/04/24 1655 MR#: [id number] Acct: [id number] Name: TERRANCE BRAR Rep #:[id number] : 1965 58 From: Ana Rivera DO PCP: Dr. Jarred Lopez MD Status :ADM HOMER Location: [place] [address] Reason for Visit Reason for Visit: Chest [...] % (Auto) 60.6, Lymph % (Auto) 31.0, [place] % (Auto) 5.1, Eos % (Auto) 1.3, [...] -Plan is discharge back to skilled facility ([facility] once pre-CERT is obtained -Patient is medically [...] is obtained Charges/Coding Visit Charges Inpatient E&M: 21374 Subs Hosp L2 01/04/24 7202 <Electronically signed by Ana Rivera DO> Cosigner Signature (if applicable): CC: ~ Signed [facility] Work Phone: 1(545) 973-277903-11-2024 Progress note Author Ana Rivera [facility] January 03, 2024 7:27pm Note Date/Time January 03, 2024 7:1 3pm [facility] Medical Records Department [address] [place] [address] Progress Note - Hospitalist 01/03/24 190 MR#: [id number] Acct: [id number] Name: TERRANCE BRAR Rep #:[id number] : 1965 58 From: Ana Rivera DO PCP: Dr. Jarred Lopez MD Status :ADM HOMER Location: [place] [address] Reason for Visit Reason for Visit: Chest pain Subjective Subjective Ms. Brar is a 58-year-old white female who presented to the emergency department at [facility] from her alf facility for acute onset chest pain with [...] Ordering Physician: Chavez Alcala Performed By: Ezequiel Dobosn RCS Physical Exam Const alert, oriented x3, [...] -Plan is discharge back to skilled facility ([facility]) once pre-CERT is obtained -Patient is medically [...] is obtained Charges/Coding Visit Charges Inpatient E&M: 08622 Subs Hosp L2 01/03/241926 <Electronically signed by Ana Rivera DO> Cosigner Signature (if applicable): CC: ~ Signed [facility] Work Phone: 1(305) 332-829703-10-2024 Progress note [facility] January 02, 2024 4:34pm Note Date/Time January 02, 2024 12: 04pm [facility] Medical Records Department [address] [place] [address] Progress Note - Hospitalist 01/02/24 1204 MR#: [id number] Acct: [id number] Name: TERRANCE BRAR Rep #:[id number] : 1965 58 From: Chavez mayo DO PCP: Dr. Jarred Lopez MD Status :ADM HOMER Location: [place] [address] Reason for Visit Reason for Visit: Diagnoses [...] % (Auto) 66.7, Lymph % (Auto) 26.5, [place] % (Auto) 4.7, Eos % (Auto) 0.8, [...] % (Auto) 60.2, Lymph % (Auto) 31.4, [place] % (Auto) 5.2, Eos % (Auto) 1.1, [...] is a 58-year-old female who presented to [facility] ED on 01/01/2024 from SNF for chest [...] back pain ? Patient recently hospitalized at [facility] from 11/19-11/24. Was noted to have fairlysevere deconditioning during that hospitalization that apparently was worsened by her chronic back pain. Was discharged to SNF at that time. Has remained at that SNF ([facility]) since then and suspect that she has [...] Full code, verified Expected disposition: Back to [facility], 1 to 2 days Total clinical time spent by myself addressing the patient's medical issues, reviewing all the data, and collaborating with patient's care team: 35 minutes. 01/02/24 1634 <Electronically signed by Chavez Alcala DO> Cosigner Signature (if applicable): CC: ~ Signed [facility] Work Phone: 1(355) 632-720803-10-2024 History and physical note Author Hansa Cast [facility] January 01, 2024 11:38pm Note Date/Time January 01, 2024 10:3 2pm [facility] Medical Records Department [address] [place] [address] H&P Exam - Hospitalist 01/01/242224 MR#: [id number] Acct: [id number] Name: TERRANCE BRAR Rep #:[id number] : 1965 58 From: Hansa Cast MD PCP: Dr. Jarred Lopez MD Status :ADM HOMER Location: [place] [address] HPI - General General Date of Admission: [...] prior opiate abuse who presents to the [facility] ED on 01/01/2024 with history of [...] therapeutic 80 mg subcu regimen x 1. [facility] Medical History (Updated 01/01/24 @ 23:32 [...] for therapy for chronic back pain housing: shelter Smoking Status: Former smoker Tobacco: How many [...] % (Auto) 66.7, Lymph % (Auto) 26.5, [place] % (Auto) 4.7, Eos % (Auto) 0.8, [...] prior opiate abuse who presents to the [facility] ED on 01/01/2024 with history of [...] Code status. Charges/Coding Visit Charges Inpatient E&M: 24978 Init Hosp L3 01/01/24 8838 <Electronically signed by Hansa Cast MD> Cosigner Signature (if applicable): CC: Dr. Hansa Cast MD; Dr. Jarred Lopez MD~ Signed [facility] Work Phone: 1([phone]) 419-111503-10-2024 Discharge summary Author Raisa Mc [facility] January 01, 2024 10:58pm Note Date/Time January 01, 2024 6:48 pm [facility] Medical Records Department [address] [place] [address] Emergency Department Summary 01/01/24 MR#: [id number] Acct: [id number] Name: TERRANCE BRAR Rep #:[id number] : 1965 58 From: Raisa Mc MD [...] been ongoing for the past several days. [facility] Medical History Carpal tunnel syndrome Chronic [...] for therapy for chronic back pain housing: shelter Smoking Status: Former smoker Tobacco: How many [...] Medical decision making narrative: Patient placed on desk monitor. IV line initiated. EKG obtained [...] % (Auto) 66.7 Lymph % (Auto) 26.5 [place] % (Auto) 4.7 Eos % (Auto) 0.8 [...] Provider] - Disposition Disposition: Acute Care Hospital [facility] What to do if you have Problems For any increased pain, shortness of breath, bleeding, nausea or vomiting, chestpain, or any unexpected problems, contact your Primary Care Provider. Call [facility] ([phone]) or report to the closest Emergency Room. Call 911 if necessary. 01/01/242257 <Electronically signed by Raisa Mc MD> Cosigner Signature (if applicable): CC: Dr. Jarred Lopez MD ~ Signed [facility] Work Phone: 1(532) 399-682303-09-2024 Discharge summary Author Raisa Mc [facility] January 01, 2024 10:58pm Note Date/Time January 01, 2024 6:48 pm [facility] Medical Records Department [address] [place] [address] Emergency Department Summary 01/01/24 MR#: [id number] Acct: [id number] Name: TERRANCE BRAR Rep #:[id number] : 1965 58 From: Raisa Mc MD [...] been ongoing for the past several days. [facility] Medical History Carpal tunnel syndrome Chronic [...] for therapy for chronic back pain housing: shelter Smoking Status: Former smoker Tobacco: How many [...] Medical decision making narrative: Patient placed on desk monitor. IV line initiated. EKG obtained [...] % (Auto) 66.7 Lymph % (Auto) 26.5 [place] % (Auto) 4.7 Eos % (Auto) 0.8 [...] Provider] - Disposition Disposition: Acute Care Hospital [facility] What to do if you have Problems For any increased pain, shortness of breath, bleeding, nausea or vomiting, chestpain, or any unexpected problems, contact your Primary Care Provider. Call [facility] ([phone]) or report to the closest Emergency Room. Call 911 if necessary. 01/01/24 5897 <Electronically signed by Raisa Mc MD> Cosigner Signature (if applicable): CC: Dr. Jarred Lopez MD ~ Signed [facility] Work Phone: 1(268) 313-845811-27-2023 History of Present illness Narrative* Ariadna Kyle - 09/20/2023 8:48 AM EST Terrance Brar is identified through a medication adherence outreach initiative based on pharmacy claims data from [employer] (insurer) for Statin medication(s). Patient is reviewed [...] Left message Ariadna Kyle documented in this encounterPaulding [facility]10-27-2023 History of Present illness Narrative* Sharonda Sanchez - 08/20/2023 4:22 PM EDT Terrance Brar is identified through a medication adherence outreach initiative based on pharmacy claims data from [employer] (insurer) for Non-insulin DM medication(s) and Statin [...] Both were out of refill Sharonda Daniel Health Care Coordinator documented in this encounterPaulding County Hospital10-25-2023 Miscellaneous Notes* Telephone Encounter - Mary Ellen [...] Provider Department Center 08/26/2023 1:40 PM 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 [facility] Please review and refill if appropriate. Thank you. Sharonda Sanchez August 18, 2023 4:11 PM documented in this encounterPaulding County Hospital10-25-2023 History of Present illness Narrative* Irena Hood, AMY - 08/18/2023 7:58 AM EDT POPULATION HEALTH [...] Gap or Scheduling/Wellness visits Payer: Payor: [employer]UE [employer] AND BLUE [employer] / Plan: [employer] MEDIBLUE HMO / Product Type: HMO / [...] 18, 2023 7:58 AM documented in this encounterPaulding County Hospital08-31-2023 Miscellaneous Notes* Telephone Encounter - Anh Simms [...] ER follow up visit. documented in this encounterPaulding County Hospital08-17-2023 Miscellaneous Notes* Telephone Encounter - Miguel Ángel Santoyo LPN - 06/10/2023 1:50 PM EDT Pt notified of Dr Lopez's message. Pt verbalizes understanding. Advises that she will go to [facility] as instructed. Miguel Ángel Santoyo LPN [...] ounces Magnesium Citrate one hour ago. She saymanuelhe was in [facility] on 06/04 with abdominal pain and received morphine. She states she has abdominal andrectal pain 07/04 mostly when she is straining to have [...] water/day 8. MEDICATIONS: Says she was in [facility] ER on 06/04 with abdominal pain [...] hemorrhoids, rectal surgery, rectal fissure Protocols used: [id number] documented in this encounterPaulding County Hospital08-13-2023 Discharge summary Author Raúl Alejo [facility] June 06, 2023 10:50pm Note Date/Time June 06, 2023 6: 00pm [facility] Medical Records Department [address] [place] [address] Emergency Department Summary 06/06/23 MR#: [id number] Acct: [id number] Name: TERRANCE BRAR Rep #:[id number] : 1965 57 From: Bronson Retana MD PCP: Dr. Jarred Lopez MD Status :REG ER Location: ED ADDENDUM by Dr. Raúl [...] for therapy for chronic back pain housing: shelter Smoking Status: Former smoker Tobacco: How many [...] (Auto) 50.5 Lymph % (Auto) 44.0 H [place] % (Auto) 3.3 Eos % (Auto) 0.9 [...] 2 patch TOPICAL DAILY Patient Comments: PER USP MAR PT GETS 2 PATCHES APPLIED TO [...] your Primary Care Provider. Call [facility] ([phone]) or report to the closest Emergency Room. Call 911 if necessary. 06/06/232237 <Electronically signed by Bronson Retana MD> Cosigner Signature (if applicable): CC: Dr. Jarerd Lopez MD ~ Signed [facility] Work Phone: 1([phone]) 143-919308-11-2023 Discharge summary Author Bronson [facility] June 04, 2023 9:29pm Note Date/Time June 04, 2023 5: 36pm [facility] Medical Records Department [address] [place] [address] Emergency Department Summary 06/04/23 MR#: [id number] Acct: [id number] Name: TERRANCE BRAR Rep #:[id number] : 1965 57 From: Bronson Retana MD [...] for therapy for chronic back pain housing: shelter Smoking Status: Former smoker Tobacco: How many [...] % (Auto) 55.4 Lymph % (Auto) 39.6 [place] % (Auto) 3.2 Eos % (Auto) 0.5 [...] Clarity Clear Urine pH 6.5 Ur Specific [place] 1.010 Urine Protein 30 H Urine Glucose [...] 2 patch TOPICAL DAILY Patient Comments: PER USP MAR PT GETS 2 PATCHES APPLIED TO [...] problems, contact your Primary Care Provider. Call [email or web address] Registry ([phone]) or report to the closest Emergency Room. [...] cc: Dr. Jarred Lopez MD ~* Signed [facility] Work Phone: 1(150) 795-554308-11-2023 Hospital Discharge instructions Additional Instructions No specific [...] 3 to 5 days. Return if feeling worse.[facility] Work Phone: 1(288) 700-955507-31-2023 Miscellaneous Notes* Telephone Encounter - Lubna Montgomery [...] Left VM to return call to office. AELX Harry * Telephone Encounter - Dwayne Lopez [...] Department Center 07/09/2023 1:00 PM PodlogJesica sharma APRN.DIGITAL COLOR PRESS OPERATOR [facility] Please review and refill if appropriate. Thank you. Debra Greer May 20, 2023 2:17 PM documented in this encounterPaulding County Hospital07-27-2023 History of Present illness Narrative* Debra Greer - 05/20/2023 2:14 PM EDT Terrance Brar is identified through a medication adherence outreach initiative based on pharmacy claims data from [employer] (insurer) for Non-insulin DM medication(s) and Statin [...] refills remaining Debra Greer documented in this encounterPaulding County Hospital07-11-2023 History of Present illness Narrative* Ariadna Kyle - 05/04/2023 2:13 PM EDT Terrance Brar is identified through a medication adherence outreach initiative based on pharmacy claims data from [employer] (insurer) for Non-insulin DM medication(s) and Statin [...] no answer Ariadna Kyle documented in this encounterPaulding County Hospital06-30-2023 History of Present illness Narrative* Vernon Degroot APRN.DIGITAL COLOR PRESS OPERATOR - 04/23/2023 2:50 PM EDT Images from [...] test blood sugar THREE TIMES DAILY Insulin [place], Disposable, (BD ULTRA-FINE BEN PEN NEEDLE) 32 [...] and atraumatic. Nose: Nose normal. Mouth/Throat: Lips: [place]. Mouth: Mucous membranes are moist. Pharynx: Uvula [...] CAPSULE Vernon Degroot APRN.DEYANIRA documented in this encounterPaulding County Hospital06-15-2023 History of Present illness Narrative* Shital Marionroselyn - 04/08/2023 1:51 PM EDT POPULATION HEALTH NAVIGATION OUTREACH Action/FYI Pt scheduled Patient Identified by Name and : YES, via phone Outreach Outcome/Action Spoke to patient / parent / legal guardian: Patient scheduled Did you use a PCP flex slot to schedule this appointment? No Reason for Outreach Care Gap or Scheduling/Wellness visits Payer: Payor: [employer] AND BLUE [employer] / Plan: [employer]H MEDILATONYA HMO / Product Type: HMO / Care [...] 08, 2023 1:51 PM documented in this encounterPaulding County Hospital06-14-2023 Miscellaneous Notes* Telephone Encounter - Shonda Valladares [...] office. Mariama Sandoval MA documented in this encounterPaulding County Hospital06-14-2023 History of Present illness Narrative* Dwayne Lopez MD - 04/07/2023 1:18 PM EDT Chief Complaint Patient presents with: SNF d/c follow up HPI Terrance Brar is a 57 year old female who presents here today for Above Complaints.. Patient had been a resident of [facility] since 03/2022 with discharge on 03/25. [...] for handicap placard. Patient also evaluated at [facility] ED on 03/28 for constipation for [...] test blood sugar THREE TIMES DAILY Insulin [place], Disposable, (BD ULTRA-FINE BEN PEN NEEDLE) 32 [...] which included preparing to see the patient, [id number] patient care, completing clinical documentation, obtaining and/or reviewing separately obtained history, performing a medically appropriate examination, counseling and educating the pat ient/family/caregiver, and ordering medications, tests, or procedures. Dwayne Lopez MD documented in this encounterPaulding County Hospital05-31-2023 History of Present illness Narrative* Dwayne Lopez MD - 03/24/2023 10:23 AM EDT Chief Complaint Patient presents with: [facility] HPI Susital Brar is a 57 year old female who presents here today for Above Complaints. Accompanied today by her Shan. Patient has been a resident of [facility] since 03/2022 and is planning on being discharged tomorrow. States that she was admitted initially for weakness and inability to walk. This was attributed to her uncontrolled DM. Required 11 months of PT. I have not received any records [facility] as of yet. Patient has paperwork [...] test blood sugar THREE TIMES DAILY Insulin [place], Disposable, (BD ULTRA-FINE BEN PEN NEEDLE) 32 [...] ago. Dwayne Lopez MD documented in this encounterPaulding County Hospital05-02-2023 History of Present illness Narrative* Sharonda Sanchez - 02/23/2023 2:40 PM EDT Terrance Brar is identified through a medication adherence outreach initiative based on pharmacy claims data from [employer] (insurer) for Non-insulin DM medication(s) and Statin [...] and per call to patient/caregiver Sharonda Sanchez Health Care Coordinator documented in this encounterPaulding County Hospital03-20-2023 History of Present illness Narrative* Aquilino Jha [...] Terrance Brar is identified through data from [employer] (insurer) as a potential candidate for statin [...] Burr RPh PharmD BCACP documented in this encounterPaulding County Hospital03-16-[address] Retana [facility] January 07, 2023 4:15pm Note Date/Time January 07, 2023 4:0 7pm [facility] Medical Records Department [address] [place] [address] Emergency Department Summary 01/07/23 MR#: [id number] Acct: [id number] Name: TERRANCE BRAR Rep #:[id number] : 1965 57 From: Bronson Retana MD PCP: Dr. Lizet Linares MD Status:R [...] dysuria or hematuria. She was written for [facility] for pain they told her she could [...] for therapy for chronic back pain housing: shelter Smoking Status: Former smoker Tobacco: How many [...] tract infection. A prescription was written for [place] which they would not let her take at the shelter. She can take Percocet. She will get [...] 2 patch TOPICAL DAILY Label Comments: PER USP MAR PT GETS 2 PATCHES APPLIED TO [...] not improving Activity Restrictions/Additional Instructions: Discard the [place] prescription. Patient has used Percocet before in the past and should be fine with this for pain. Follow-up with your doctor if not improving. Disposition Disposition: Home, Self Care What to do if you have Problems For any increased pain, shortness of breath, bleeding, nausea or vomiting, chestpain, or any unexpected problems, contact your Primary Care Provider. Call [facility] ([phone]) or report to the closest Emergency Room. Call 911 if necessary. 01/07/23 1615 <Electronically signed by Bronson Retana MD> Cosigner Signature (if applicable): CC: Dr. Lizet Linares MD ~ Signed [facility] Work Phone: 1([phone]) 865-285707-02-2022 Evaluation note* Diagnosis Onset Date Resolution Status Chest pain acute Chronic renal failure, stage 3a acute Elevated troponin acute History of diabetes mellitus acute Hyperlipidemia acute Normochromic normocytic anemia acute Obesity (BMI 35.0-39.9 without comorbidity) acute Opiate abuse, continuous acu te Chronic back pain chronic Depressive disorder chronic [facility] Work Phone: 1(814) 489-966606-10-2022 History of Present illness Narrative* Shital Patel MA - 04/03/2022 12:54 PM EDT POPULATION HEALTH NAVIGATION OUTREACH Action/FYI Patient is on HCC list for below gaps and needs appt to address : 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
E11.69 - Hyperlipidemia associated with type 2 diabetes mellitus (HCC) - [id number] Last Billed 12/26/2019
E21.3 - Hyperparathyroidism (HCC) - [id number] Last Billed 09/18/2019
patient also due for [...] HCC or suspected condition Payer: Payor: [employer] AND [place] / Plan: [employer] HMO / Product Type: HMO / Care [...] 03, 2022 12:55 PM documented in this encounterPaulding County Hospital09-29-2015 History of Past illness Narrative* Problem Noted Date Resolved Date Trigger thumb of left hand 07/23/201501/27 Carpal tunnel syndrome, left 05/27/201502/2017 Carpal tunnel syndrome, right 05/27/2015 Constipation 03/12/2015 06/03/2015 Anemia 03/12/2015 02/27/2016 Abdominal pain, right upper quadrant 06/05/2014 06/03/2015 Abdominal pain, epigastric 05/15/201406/03 Routine General Medical Exam ination at a Health Care Facility 12/10/2008 06/03/2015 Overview: HCT 37.6% in -09, 37.4% in -, 37% in -, 42% in 07-03 EDMUNDO in 03-02 per [...] of this encounter (statuses as of 04/03/2022) [facility] of Past illness Narrative* Problem [...] of this encounter (statuses as of 01/21/2023) [facility] of [facility] illness Narrative* Problem [...] of this encounter (statuses as of 02/24/2023) [facility] Narrative* Problem [...] of this encounter (statuses as of 03/24/2023) [facility] Narrative* Problem [...] of this encounter (statuses as of 04/07/2023) [facility] Narrative* Problem [...] of this encounter (statuses as of 04/08/2023) [facility] Narrative* Problem [...] of this encounter (statuses as of 04/12/2023) [facility] Narrative* Problem [...] of this encounter (statuses as of 04/23/2023) [facility] Narrative* Problem [...] of this encounter (statuses as of 05/05/2023) [facility] Narrative* Problem [...] of this encounter (statuses as of 05/20/2023) [facility] Narrative* Problem [...] of this encounter (statuses as of 05/24/2023) [facility] Narrative* Problem [...] of this encounter (statuses as of 06/10/2023) [facility] Narrative* Problem [...] of this encounter (statuses as of 06/30/2023) [facility] Narrative* Problem [...] of this encounter (statuses as of 08/18/2023) [facility] Narrative* Problem [...] of this encounter (statuses as of 08/19/2023) [facility] Narrative* Problem [...] of this encounter (statuses as of 08/20/2023) [facility] Narrative* Problem [...] of this encounter (statuses as of 09/20/2023) [facility] Narrative* Problem [...] of this encounter (statuses as of 01/06/2024) [facility] Narrative* Problem [...] of this encounter (statuses as of 01/25/2024) [facility] Narrative* Problem [...] of this encounter (statuses as of 02/07/2024) [facility] Narrative* Problem [...] of this encounter (statuses as of 02/10/2024) [facility] HospitalEvaluation noteNo assessment information availableWPomerene Hospital Work Phone: Evaluation note* Diagnosis Onset Date Resolution Status 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 [facility] Work Phone: Evaluation note* Diagnosis Onset Date Resolution Status 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 HTN (hypertension) chronic Pure hypercholesterolemia ch ronic [facility] Work Phone: Evaluation note* Diagnosis Onset Date Resolution Status Chest pain resolved [facility] Work Phone: Evaluation note* Diagnosis Onset Date Resolution Status Chest pain resolved Diabetes acute Nonspecific chest pain acute Renal insufficiency acute [facility] Work Phone: Evaluation note* Diagnosis Onset Date Resolution Status Chest pain resolved Diabetes acute Hypothyroidism acute Nonspecific chest pain acute Renal insufficiency acute [facility] Work Phone: Evaluation note* Diagnosis Onset Date Resolution Status Hyperlipidemia acute Chest pain resolved Hypothyroidism acute Nonspecific chest pain resol shirley Atherosclerotic heart diseas e of [place] coronary artery without angina pectoris acute Chest pressure acute Dizziness acute Dyspnea acute Essential hypertension acute Hyperlipidemia acute [facility] Work Phone: Evaluation note* Diagnosis Onset Date Resolution Status Hypothyroidism acute Nonspecific chest pain resol shirley Atherosclerotic heart diseas e of [place] coronary artery without angina pectoris acute Chest pressure acute Dizziness acute Dyspnea acute Essential hypertension acute Hyperlipidemia acute [facility] Work Phone: Evaluation note* Diagnosis Onset Date Resolution Status Atherosclerotic heart diseas e of [place] coronary artery without angina pectoris acute Chest pressure acute Dizziness acute Dyspnea acute Essential hypertension acute Hyperlipidemia acute Atherosclerotic heart diseas e of [place] coronary artery without angina pectoris acute Bilateral lower extremity edema acute Essential hypertension acute Hyperlipidemia acute [facility] Work Phone: Evaluation note* Diagnosis Onset Date Resolution Status Atherosclerotic heart diseas e of [place] coronary artery without angina pectoris acute Bilateral lower extremity edema acute Essential hypertension acute Hyperlipidemia acute [facility] Work Phone: Evaluation note* Diagnosis Globus sensation- Primary Gastrointestinal malfunction arising from mental factors Gastroesophageal reflux disease, unspecified whether esophagitis present [facility] Onset Date Resolution Status Atherosclerotic heart diseas e of [place] coronary artery without angina pectoris acute Bilateral lower extremity edema acute Essential hypertension acute Hyperlipidemia acute Palpitations acute [facility] Work Phone: Evaluation note* Diagnosis Generalized weakness- [...] type dependence, continuous [facility] Toothache- Primary Unspecified disorder of the teeth and supporting structures [facility] Diagnosis Onset Date Resolution Status Acute leg pain acute Diabetes mellitus with hyperglycemia acute Diarrhea acute Nausea acute [facility] Work Phone: Evaluation note* Diagnosis Onset Date Resolution Status Diarrhea acute Acute leg pain resolved Diabetes mellitus with hyperglycemia resolved Nausea resolved Pulmonary emboli acute [facility] Work Phone: Evaluation note* Diagnosis Onset Date Resolution Status Diarrhea acute Acute leg pain resolved Diabetes mellitus with hyperglycemia resolved Nausea resolved Chest pressure acute Pulmonary emboli acute [facility] Work Phone: Evaluation note* Diagnosis Onset Date Resolution Status Diarrhea acute Acute leg pain resolved Diabetes mellitus with hyperglycemia resolved Nausea resolved Chest pressure acute [facility] Work Phone: Evaluation note* Diagnosis Encounter for screening mammogram for breast cancer [facility] Pre-operative examination- Primary Preoperative examination, [...] for breast cancer [facility] Author John Shaw [facility] November 19, 2023 11:02am Note Date/Time November 19, 2023 1 0:38am [facility] Medical Records Department [facility] [place] [address] H&P Exam - Hospitalist 11/19/23 1037 MR#: [id number] Acct: [id number] Name: TERRANCE BRAR Rep #:[id number] : 1965 58 From: John Shaw MD PCP: Dr. Jarred Lopez MD Status :ADM HOMER Location: [place] [id number] HPI - General General Date of Admission: [...] admittedto regular nursing floor for further management [facility] Medical History Carpal tunnel syndrome Chronic [...] for therapy for chronic back pain housing: shelter Smoking Status: Former smoker Tobacco: How many [...] % (Auto) 59.6, Lymph % (Auto) 35.7, [place]% (Auto) 3.3, Eos % (Auto) 0.4, Baso [...] Sl. Cloudy, Urine pH 6.0, Ur Specific En[place]avor 1.015, Urine Protein 30 H, Urine Glucose [...] - Requested for PT OT eval and health and social care teacher to assist with discharge planning 12. [...] documentation, 75Minutes Charges/Coding Visit Charges Inpatient E&M: 27094 Init Hosp L3 Procedures Hospitalists Procedures: 04356 Advncd Care Plan addl 30 Min 11/19/23 1102 <Electronically signed by John Shaw MD> Cosigner Signature (if applicable): CC: Dr. Jarred Lopez MD; Dr. John Shaw MD~ Signed [facility] Work Phone: [phone] Discharge instructions Additional Instructions Your MRI today showed some mild disc disease of L3 and L4. The thoracic spine was fine. There is no compression of your spinal cord. Nothing needs to be done acutely. Motrin and Tylenol for pain. Follow-up with your primary care physician.[facility] Work Phone: [phone] Work Phone: [phone] Work Phone: [phone] Work Phone: [phone] Work Phone: [phone] Work Phone: [facility] Work Phone: [facility] Work Phone: [phone] instructions[facility] Work Phone: [phone] Work Phone: [facility] Work Phone: [phone] Work Phone: [phone] Discharge instructions Additional Instructions Your work-up today does not show a kidney stone bowel obstruction or acute appendicitis. It does demonstrate urinary tract infection but at this time it is not causing kidney damage or moving in your bloodstream. Therefore take the antibiotic as directed to help resolve your infection and return to the ER should you have any further concerns.[facility] Work Phone: Hospital Discharge instructions Additional Instructions Discard the [place] prescription. Patient has used Percocet before in the past and should be fine with this for pain. Follow-up with your doctor if not improving.[facility] Work Phone: Hospital Discharge instructions Additional Instructions Increase fiber in your diet. Take an [id number] stool softener.[facility] Work Phone: Hospital Discharge instructions Additional Instructions Watch her blood sugars very closely. Take your medications as prescribed. Recheck your blood sugar prior to going to bed tonight Call and follow-up your primary care physician this coming week.[facility] Work Phone: Reason for referral (narrative)* Diagnostic Procedure Only (Routine) - Pending Review Specialty Diagnoses / Procedures Referred By Mamta redmond Referred To Contact [facility] Diagnoses Encounter for screening mammogram for breast cancer Procedures OLIVER SCREENING SCREENING MAMMOGRAPHY BI 2-VIEW BREAST INC CAD Dwayne Lopez MD [address] [place] [address] [facility] [address] [place] [address] Referral ID Status Reason Start Date Expiration Date Visits Requested Visits Authorized [id number] Pending Review Auto-Generat ed Referral 03/08/2024 04/07/2025 1 1 [facility] for referral (narrative)No reason for referral information availableW[facility] Work Phone: Summary Purpose Family History [...] No January 13, 2022 2:31pm Power of Pilot Supervisor No January 13 2:31pm Advance Directive Response Recorded Date/ Time Advance Directives No April 21 2:21pm Living Will No February 24, 2022 1: 16pm Power of Pilot Supervisor No February 24, 2022 1:16pm Advance Directive Response Recorded Date/ Time Advance Directives No April 21 2:21pm Living Will No March 20, 2022 5 :54pm Power of Pilot Supervisor No March 20, 2022 5:54pm Documents on File Type Date Recorded 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 Advance Directive(s) 10/10/2020 10:19 AM [...] April 24, 2022 5 :45pm Power of Pilot Supervisor No April 24, 2022 5:45pm Advance Directive Response Recorded Date/ Time Advance Directives No May 13 3:12pm Living Will No May 20, 2022 10:19pm Power of Pilot Supervisor No May 20 10:19pm Advance Directive Response Recorded Date/ Time Advance Directives No May 13 3:12pm Living Will No May 21, 2022 4:04am Power of Pilot Supervisor No May 21 4:04am Advance Directive Response Recorded Date/ Time Advance Directives No May 13 3:12pm Living Will No August 24 3:23am Power of Pilot Supervisor No August 24, 2022 3:23am Advance Directive Response Recorded Date/ Time Advance Directives No May 13 2:12pm Living Will No August 24 2:23am Power of Pilot Supervisor No August 24, 2022 2:23am Advance Directive Response Recorded Date/ Time Advance Directives No May 13 2:12pm Living Will No October 09, 2 022 1:31am Power of Pilot Supervisor No October 09, 2022 1:31am Advance Directive Response Recorded Date/ Time Advance Directives No May 13 2:12pm Living Will No November 05 1:46am Power of Pilot Supervisor No November 05, 2022 1:46am Advance Directive Response Recorded Date/ Time Advance Directives No May 13 3:12pm Living Will No January 06, 2023 5:42pm Power of Pilot Supervisor No January 06 5:42pm Advance Directive Response Recorded Date/ Time Advance Directives No May 13 3:12pm Living Will No January 07, 2023 3:43pm Power of Pilot Supervisor No January 07 3:43pm Advance Directive Response Recorded Date/ Time Advance Directives No May 13 3:12pm Living Will No January 29, 2023 10:04pm Power of Pilot Supervisor No January 29 10:04pm Advance Directive Response Recorded Date/ Time Advance Directives No May 13 3:12pm Living Will No March 28, 2023 9 :08am Power of Pilot Supervisor No March 28, 2023 9:08am Advance Directive Response Recorded Date/ Time Advance Directives No May 13 3:12pm Living Will No June 04 3 4:57pm Power of Pilot Supervisor No June 04 2 023 4:57pm Advance Directive Response Recorded Date/ Time Advance Directives No May 13 3:12pm Living Will No June 06 3 6:12pm Power of Pilot Supervisor No June 06 2 023 6:12pm Advance Directive Response Recorded Date/ Time Advance Directives No May 13 3:12pm Living Will No June 10 2:58pm Power of Pilot Supervisor No June 10 2 023 2:58pm Advance Directive Response Recorded Date/ Time Advance Directives No May 13 2:12pm Living Will No November 19 8:42am Power of Pilot Supervisor No November 19, 2023 8:42am Advance Directive Response Recorded Date/ Time Advance Directives No May 13 2:12pm Living Will No January 01, 2024 6:36pm Power of Pilot Supervisor No December 31 6:36pm Advance Directive Response Recorded Date/ Time Advance Directives No May 13 3:12pm Living Will No January 02, 2024 12:44am Power of Pilot Supervisor No January 01 12:44am Advance Directive Response Recorded Date/ Time Advance Directives No May 13 3:12pm Living Will No January 20, 2024 1:09am Power of Pilot Supervisor No January 19 1:09am Advance Directive Response Recorded Date/ Time Living Will No October 24 12:12pm Do you have a Healthcare Power of Pilot Supervisor? No October 24, 2024 12:12pm Living Will No January 22, 2025 10:46am Do you have a Healthcare Power of Pilot Supervisor? No January 22, 2025 10:46am Advance Directives No May 13 3:12pm Advance Directive Response Recorded Date/ Time Advance Directives No March 16 7:49am Living Will No January 22, 2025 10:46am Do you have a Healthcare Power of Pilot Supervisor? No January 22, 2025 10:46am Chief Complaint and Reason for Visit Chief [...] PAIN ACUTE ON CHRONIC LOW BACK PAIN USP LABWORK LABWORK Chief Complaint GENERAL ILLNESS NUMBNESS [...] PAIN ACUTE ON CHRONIC LOW BACK PAIN USP LABWORK LABWORK CP, DM, HTN CP, DM, [...] PAIN ACUTE ON CHRONIC LOW BACK PAIN USP LABWORK LABWORK CP, DM, HTN CP, DM, [...] PAIN ACUTE ON CHRONIC LOW BACK PAIN USP LABWORK LABWORK USP LABWORK CP, DM, HTN CP, DM, HTN [...] PAIN ACUTE ON CHRONIC LOW BACK PAIN USP LABWORK LABWORK USP LABWORK CP, DM, HTN CP, DM, HTN [...] PAIN ACUTE ON CHRONIC LOW BACK PAIN USP LABWORK LABWORK USP LABWORK CP, DM, HTN CP, DM, HTN [...] PAIN ACUTE ON CHRONIC LOW BACK PAIN USP LABWORK LABWORK USP LABWORK CP, DM, HTN CP, DM, HTN CP, DM, HTN CP, DM, HTN LAB WORK NEW SYMPTOMS/CONCERNS CHEST PAIN CHEST PAIN ER FOLLOW UP USP LABWORK LAB WORK CHEST PAIN CHEST PAIN USP LABWORK Amb Documentation s/p hosp/ MANAGER UNIT consult in ER Reason for Visit Hyperlipidemia Chest pain Hypothyroidism Nonspecific chest pain Atherosclerotic heart disease of [place] coronary artery without angina pectoris Chest pressure [...] PAIN ACUTE ON CHRONIC LOW BACK PAIN USP LABWORK LABWORK USP LABWORK CP, DM, HTN CP, DM, HTN CP, DM, HTN CP, DM, HTN LAB WORK NEW SYMPTOMS/CONCERNS CHEST PAIN CHEST PAIN ER FOLLOW UP USP LABWORK LAB WORK CHEST PAIN CHEST PAIN USP LABWORK USP LABWORK Amb Documentation s/p hosp/ MANAGER UNIT consult in ER USP LABWORK DYSPNEA *OSCAR* Reason for Visit Hyperlipidemia Chest pain Hypothyroidism Nonspecific chest pain Atherosclerotic heart disease of [place] coronary artery without angina pectoris Chest pressure [...] PAIN ACUTE ON CHRONIC LOW BACK PAIN USP LABWORK LABWORK USP LABWORK CP, DM, HTN CP, DM, HTN CP, DM, HTN CP, DM, HTN LAB WORK NEW SYMPTOMS/CONCERNS CHEST PAIN CHEST PAIN ER FOLLOW UP USP LABWORK LAB WORK CHEST PAIN CHEST PAIN USP LABWORK USP LABWORK Amb Documentation s/p hosp/ MANAGER UNIT consult in ER USP LABWORK USP LAB WORK DYSPNEA *OSCAR* USP LAB WORK Reason for Visit Hyperlipidemia Chest pain Hypothyroidism Nonspecific chest pain Atherosclerotic heart disease of [place] coronary artery without angina pectoris Chest pressure Dizziness Dyspnea Essential hypertension Hyperlipidemia Chief Complaint LABWORK USP LABWORK CP, DM, HTN CP, DM, HTN CP, DM, HTN CP, DM, HTN LAB WORK NEW SYMPTOMS/CONCERNS CHEST PAIN CHEST PAIN ER FOLLOW UP USP LABWORK LAB WORK CHEST PAIN CHEST PAIN USP LABWORK USP LABWORK Amb Documentation s/p hosp/ MANAGER UNIT consult in ER USP LABWORK USP LAB WORK DYSPNEA *OSCAR* LABWORK USP LAB WORK USP LABWORK Reason for Visit Hyperlipidemia Chest pain Hypothyroidism Nonspecific chest pain Atherosclerotic heart disease of [place] coronary artery without angina pectoris Chest pressure Dizziness Dyspnea Essential hypertension Hyperlipidemia Chief Complaint CP, DM, HTN CP, DM, HTN CP, DM, HTN CP, DM, HTN LAB WORK NEW SYMPTOMS/CONCERNS CHEST PAIN CHEST PAIN ER FOLLOW UP USP LABWORK LAB WORK CHEST PAIN CHEST PAIN USP LABWORK USP LABWORK Amb Documentation s/p hosp/ MANAGER UNIT consult in ER USP LABWORK USP LAB WORK DYSPNEA *OSCAR* LABWORK USP LAB WORK USP LABWORK USP LABWORK Reason for Visit Hyperlipidemia Chest pain Hypothyroidism Nonspecific chest pain Atherosclerotic heart disease of [place] coronary artery without angina pectoris Chest pressure Dizziness Dyspnea Essential hypertension Hyperlipidemia Chief Complaint CHEST PAIN CHEST PAIN ER FOLLOW UP USP LABWORK LAB WORK CHEST PAIN CHEST PAIN USP LABWORK USP LABWORK Amb Documentation s/p hosp/ MANAGER UNIT consult in ER USP LABWORK USP LAB WORK DYSPNEA *OSCAR* LABWORK USP LAB WORK LABWORK USP LABWORK USP LABWORK USP LAB WORK CP Reason for Visit Hypothyroidism Nonspecific chest pain Atherosclerotic heart disease of [place] coronary artery without angina pectoris Chest pressure Dizziness Dyspnea Essential hypertension Hyperlipidemia Chief Complaint USP LABWORK USP LABWORK Amb Documentation s/p hosp/ MANAGER UNIT consult in ER USP LABWORK USP LAB WORK DYSPNEA *OSCAR* LABWORK USP LAB WORK LABWORK USP LABWORK USP LABWORK USP LAB WORK CP ER VISIT RETURN USP LABWORK 3 M FU Reason for Visit Atherosclerotic hear t disease of [place] coronary artery without angina pectoris Chest pressure Dizziness Dyspnea Essential hypertension Hyperlipidemia Atherosclerotic heart disease of [place] coronary artery without angina pectoris Bilateral lower extremity edema Essential hypertension Hyperlipidemia Chief Complaint s/p hosp/ MANAGER UNIT consul t in ER USP LABWORK USP LAB WORK DYSPNEA *OSCAR* LABWORK USP LAB WORK LABWORK USP LABWORK USP LABWORK USP LAB WORK CP ER VISIT RETURN USP LABWORK 3 M FU USP LAB WORK abd pain Reason for Visit Atherosclerotic hear t disease of [place] coronary artery without angina pectoris Chest pressure Dizziness Dyspnea Essential hypertension Hyperlipidemia Atherosclerotic heart disease of [place] coronary artery without angina pectoris Bilateral lower extremity edema Essential hypertension Hyperlipidemia Chief Complaint USP LAB WOR K DYSPNEA *OSCAR* LABWORK USP LAB WORK LABWORK USP LABWORK USP LABWORK USP LAB WORK CP ER VISIT RETURN USP LABWORK MONTHLY EXAM 3 M FU USP LABWORK USP LAB WORK USP LAB WORK abd pain MONTHLY VISIT USP LAB WORK NEW CONCERN Reason for Visit Atherosclerotic hear t disease of [place] coronary artery without angina pectoris Bilateral lower extremity edema Essential hypertension Hyperlipidemia Chief Complaint LABWORK USP LABWORK USP LABWORK USP LAB WORK CP ER VISIT RETURN USP LABWORK MONTHLY EXAM 3 M FU USP LABWORK USP LAB WORK USP LAB WORK abd pain MONTHLY VISIT USP LAB WORK NEW CONCERN NEW PROBLEM/CONCERN chest pain Reason for Visit Atherosclerotic hear t disease of [place] coronary artery without angina pectoris Bilateral lower extremity edema Essential hypertension Hyperlipidemia Chief Complaint USP LABWORK USP LAB WORK CP ER VISIT RETURN USP LABWORK MONTHLY EXAM 3 M FU USP LABWORK USP LAB WORK USP LAB WORK abd pain MONTHLY VISIT USP LAB WORK NEW CONCERN LABWORK NEW PROBLEM/CONCERN chest pain ER FOLLOW UP USP LAB WORK Reason for Visit Atherosclerotic hear t disease of [place] coronary artery without angina pectoris Bilateral lower extremity edema Essential hypertension Hyperlipidemia Chief Complaint USP LABWORK USP LAB WORK CP ER VISIT RETURN USP LABWORK MONTHLY EXAM 3 M FU USP LABWORK USP LAB WORK USP LAB WORK abd pain MONTHLY VISIT USP LAB WORK NEW CONCERN LABWORK NEW PROBLEM/CONCERN USP LABWORK chest pain ER FOLLOW UP NEW CONCERN/PROBLEM USP LAB WORK Reason for Visit Atherosclerotic hear t disease of [place] coronary artery without angina pectoris Bilateral lower extremity edema Essential hypertension Hyperlipidemia Chief Complaint USP LAB WOR K CP ER VISIT RETURN USP LABWORK MONTHLY EXAM 3 M FU USP LABWORK USP LAB WORK USP LAB WORK abd pain MONTHLY VISIT USP LAB WORK NEW CONCERN LABWORK NEW PROBLEM/CONCERN USP LABWORK chest pain ER FOLLOW UP NEW CONCERN/PROBLEM USP LAB WORK MONTHLY EXAM USP LAB WORK Amb Documentation Reason for Visit Atherosclerotic hear t disease of [place] coronary artery without angina pectoris Bilateral lower extremity edema Essential hypertension Hyperlipidemia Chief Complaint 3 M FU USP LABWORK USP LAB WORK USP LAB WORK abd pain MONTHLY VISIT USP LAB WORK NEW CONCERN LABWORK NEW PROBLEM/CONCERN USP LABWORK chest pain ER FOLLOW UP NEW CONCERN/PROBLEM USP LAB WORK MONTHLY EXAM USP LAB WORK USP LAB WORK MONTHLY VISIT Amb Documentation USP LABWORK NEW CONCERN RIGHT FLANK PAIN Reason for Visit Atherosclerotic hear t disease of [place] coronary artery without angina pectoris Bilateral lower extremity edema Essential hypertension Hyperlipidemia Chief Complaint 3 M FU USP LABWORK USP LAB WORK USP LAB WORK abd pain MONTHLY VISIT USP LAB WORK NEW CONCERN LABWORK NEW PROBLEM/CONCERN USP LABWORK chest pain ER FOLLOW UP NEW CONCERN/PROBLEM USP LAB WORK MONTHLY EXAM USP LAB WORK USP LAB WORK MONTHLY VISIT Amb Documentation USP LABWORK NEW CONCERN RIGHT FLANK PAIN FLANK PAIN Reason for Visit Atherosclerotic hear t disease of [place] coronary artery without angina pectoris Bilateral lower extremity edema Essential hypertension Hyperlipidemia Chief Complaint USP LAB WOR K abd pain MONTHLY VISIT USP LAB WORK NEW CONCERN LABWORK NEW PROBLEM/CONCERN USP LABWORK chest pain ER FOLLOW UP NEW CONCERN/PROBLEM USP LAB WORK MONTHLY EXAM USP LAB WORK USP LAB WORK MONTHLY VISIT Amb Documentation USP LABWORK NEW CONCERN USP LAB WORK USP LAB WORK NEW CONCERN/PROBLEM USP LABWORK NEW CONCERNS USP LAB WORK MONTHLY EXAM RIGHT FLANK PAIN FLANK PAIN NEW CONCERN NEW CONCERN Chief Complaint abd pain MONTHLY VISIT USP LAB WORK NEW CONCERN LABWORK NEW PROBLEM/CONCERN USP LABWORK chest pain ER FOLLOW UP NEW CONCERN/PROBLEM USP LAB WORK MONTHLY EXAM USP LAB WORK USP LAB WORK MONTHLY VISIT Amb Documentation USP LABWORK NEW CONCERN USP LAB WORK USP LAB WORK NEW CONCERN/PROBLEM USP LABWORK NEW CONCERNS USP LAB WORK MONTHLY EXAM RIGHT FLANK PAIN FLANK PAIN NEW CONCERN NEW CONCERN USP LAB WORK HYPERSOMNIA Chief Complaint abd pain MONTHLY VISIT USP LAB WORK NEW CONCERN LABWORK NEW PROBLEM/CONCERN USP LABWORK chest pain ER FOLLOW UP NEW CONCERN/PROBLEM USP LAB WORK MONTHLY EXAM USP LAB WORK USP LAB WORK MONTHLY VISIT Amb Documentation USP LABWORK NEW CONCERN USP LAB WORK USP LAB WORK NEW CONCERN/PROBLEM USP LABWORK NEW CONCERNS USP LAB WORK MONTHLY EXAM RIGHT FLANK PAIN FLANK PAIN NEW CONCERN NEW CONCERN USP LAB WORK HYPERSOMNIA CP Chief Complaint abd pain MONTHLY VISIT USP LAB WORK NEW CONCERN LABWORK NEW PROBLEM/CONCERN USP LABWORK chest pain ER FOLLOW UP NEW CONCERN/PROBLEM USP LAB WORK MONTHLY EXAM USP LAB WORK USP LAB WORK MONTHLY VISIT Amb Documentation USP LABWORK NEW CONCERN USP LAB WORK USP LAB WORK NEW CONCERN/PROBLEM USP LABWORK NEW CONCERNS USP LAB WORK MONTHLY EXAM RIGHT FLANK PAIN FLANK PAIN NEW CONCERN NEW CONCERN USP LAB WORK USP LABWORK HYPERSOMNIA CP Chief Complaint USP LAB WOR K MONTHLY VISIT Amb Documentation USP LABWORK NEW CONCERN USP LAB WORK USP LAB WORK NEW CONCERN/PROBLEM USP LABWORK NEW CONCERNS USP LAB WORK MONTHLY EXAM RIGHT FLANK PAIN FLANK PAIN NEW CONCERN NEW CONCERN USP LAB WORK USP LABWORK HYPERSOMNIA CP NEW CONCERN USP LABWORK 5 MO F/U USP LAB WORK USP LABWORK USP LABWORK Reason for Visit Atherosclerotic hear t disease of [place] coronary artery without angina pectoris Bilateral lower extremity edema Essential hypertension Hyperlipidemia Palpitations Chief Complaint USP LAB WOR K MONTHLY VISIT Amb Documentation USP LABWORK NEW CONCERN USP LAB WORK USP LAB WORK NEW CONCERN/PROBLEM USP LABWORK NEW CONCERNS USP LAB WORK MONTHLY EXAM RIGHT FLANK PAIN FLANK PAIN NEW CONCERN NEW CONCERN USP LAB WORK USP LABWORK HYPERSOMNIA CP NEW CONCERN USP LABWORK 5 MO F/U USP LAB WORK USP LABWORK USP LABWORK constipation Reason for Visit Atherosclerotic hear t disease of [place] coronary artery without angina pectoris Bilateral lower extremity edema Essential hypertension Hyperlipidemia Palpitations Chief Complaint 5 MO F/U USP LAB WORK USP LABWORK MONTHLY EXAM USP LABWORK NEW CONCERN constipation ABD PAIN Reason for Visit Atherosclerotic hear t disease of [place] coronary artery without angina pectoris Bilateral lower extremity edema Essential hypertension Hyperlipidemia Palpitations Chief Complaint 5 MO F/U USP LAB WORK USP LABWORK MONTHLY EXAM USP LABWORK NEW CONCERN constipation ABD PAIN General illness Reason for Visit Atherosclerotic hear t disease of [place] coronary artery without angina pectoris Bilateral lower extremity edema Essential hypertension Hyperlipidemia Palpitations Chief Complaint 5 MO F/U USP LAB WORK USP LABWORK MONTHLY EXAM USP LABWORK NEW CONCERN constipation ABD PAIN General illness constipation Reason for Visit Atherosclerotic hear t disease of [place] coronary artery without angina pectoris Bilateral lower [...] hyperglycemia hyperglycemia hyperglycemia hyperglycemia hyperglycemia ADMISSION EXAM PLASTICS REPAIRER LABWORK ADMISSION EXAM MD LABWORK LABWORK LABWORK USP LAB WORK LABWORK BL PE, CHEST PAIN BL PE, CHEST PAIN BL PE, CHEST PAIN BL PE, CHEST PAIN BL PE, CHEST PAIN Reason for Visit Diarrhea Acute leg pain Diabetes mellitus with hyperglycemia Nausea Chest pressure Chief Complaint hyperglycemia hyperglycemia hyperglycemia hyperglycemia hyperglycemia hyperglycemia hyperglycemia ADMISSION EXAM PLASTICS REPAIRER LABWORK ADMISSION EXAM LABWORK LABWORK LABWORK USP LAB WORK LABWORK BL PE, CHEST PAIN BL PE, CHEST PAIN BL PE, CHEST PAIN BL PE, CHEST PAIN BL PE, CHEST PAIN chest pain Reason for Visit Diarrhea Acute leg pain Diabetes mellitus with hyperglycemia Nausea Chest pressure Chief Complaint hyperglycemia hyperglycemia hyperglycemia hyperglycemia hyperglycemia hyperglycemia hyperglycemia ADMISSION EXAM PLASTICS REPAIRER LABWORK ADMISSION EXAM LABWORK LABWORK LABWORK USP LAB WORK NEW CONCERN LABWORK BL PE, CHEST PAIN BL PE, CHEST PAIN BL PE, CHEST PAIN BL PE, CHEST PAIN BL PE, CHEST PAIN LABWORK LAB WORK LABWORK LABWORK LAB WORK chest pain LABWORK LABWORK MONTHLY EXAM USP LAB WORK LABWORK USP LAB WORK LABWORK Reason for Visit Diarrhea Acute leg pain Diabetes mellitus with hyperglycemia Nausea Chest pressure Chief Complaint Admit Date MONTHLY EXAM September 26, 2024 1 1:30pm LABWORK September 29, 2024 5 :00am LABWORK October 06, 2024 5:00am RT BREAST PAIN October 06, 2024 2:19pm USP LAB WORK October 13 4:00am USP LAB WORK October 20 5:00am abd pain October 24, 2024 11:08am USP LAB WORK October 27, 2024 5:00am MONTHLY VISIT October 27, 2024 5: 39pm LABWORK November 01, 2024 5: 07am LABWORK November 03, 2024 5 :04am LABWORK November 10, 2024 5 :00am LABWORK November 17, 2024 5 :00am LABWORK November 24, 2024 5 :00am MONTHLY EXAM November 28, 2024 9 :33pm USP LAB WORK November 30, 2024 5:00am LABWORK December 07, 2024 8:00pm LABWORK January 05, 2025 5:0 0am CP January 22, 2025 10: 39am Chief Complaint Admit Date LABWORK September 29, 2024 5 :00am LABWORK October 06, 2024 5:00am RT BREAST PAIN October 06, 2024 2:19pm USP LAB WORK October 13 4:00am USP LAB WORK October 20 5:00am abd pain October 24, 2024 11:08am USP LAB WORK October 27, 2024 5:00am MONTHLY VISIT October 27, 2024 5: 39pm LABWORK November 01, 2024 5: 07am LABWORK November 03, 2024 5 :04am LABWORK November 10, 2024 5 :00am LABWORK November 17, 2024 5 :00am LABWORK November 24, 2024 5 :00am MONTHLY EXAM November 28, 2024 9 :33pm USP LAB WORK November 30, 2024 5:00am LABWORK December 07, 2024 8:00pm MONTHLY EXAM January 04, 2025 10: 31am LABWORK January 05, 2025 5:0 0am CP January 22, 2025 10: 39am ACUTE CARE VISIT January 22, 2025 4:0 1pm Chief Complaint Admit Date MONTHLY EXAM November 28, 2024 9 :33pm USP LAB WORK November 30, 2024 5:00am LABWORK December 07, 2024 8:00pm MONTHLY EXAM January 04, 2025 10: 31am LABWORK January 05, 2025 5:0 0am CP January 22, 2025 10: 39am ACUTE CARE VISIT January 22, 2025 4:0 1pm MONTHLY EXAM January 23, 2025 5:48 pm Chest pain January 30, 2025 1:52 pm USP LAB WORK March 12, 2025 4:0 0am Reason for Visit Admit Date Atherosclerotic heart diseas e of [place] coronary artery without angina pectoris January 30, 2025 1:52pm Essential hypertension January 30, 2025 1 :52pm Hyperlipidemia January 30, 2025 1:52 pm Chest pain January 30, 2025 1:52 pm Reason for Referral Specialty Diagnoses / Procedures Referred By Contac t Referred To Contact Podiatry Diagnoses Diabetic polyneuropathy associated with type 2 diabetes mellitus (HCC) Procedures CONSULT TO PODIATRY OFFICE/OUTPATIENT [facility] 60-74 MINUTES Dwayne Lopez MD [address] [place] [id number] Referral ID Status Reason Start Date Expiration Date Visits Requested Visits Authorized [id number] Pending Review PCP Requested Referral 04/07/2023 04/06/2024 1 1 Specialty Diagnoses / Procedures Referred By Contac t Referred To Contact General Surgery Diagnoses Globus sensation Screening for colon cancer Procedures CONSULT TO GENERAL SURGERY OFFICE/OUTPATIENT [facility] 60-74 MINUTES Dwayne Lopez MD [address] [place] [id number] Referral ID Status Reason Start Date Expiration Date Visits Requested Visits Authorized [id number] Pending Review PCP Requested Referral 04/07/2023 04/06/2024 1 1 Specialty Diagnoses / Procedures Referred By Contac t Referred To Contact Ophthalmology Diagnoses Diabetes mellitus type 2 with neurological manifestations (HCC) Change in vision Procedures CONSULT TO OPHTHALMOLOGY OFFICE/OUTPATIENT NEW HIGH MDM 60-74 MINUTES Dwayne Lopez MD [address] [place] [address] Referral ID Status Reason Start Date Expiration Date Visits Requested Visits Authorized [id number] Pending Review PCP Requested Referral 04/07/2023 04/06/2024 1 1 Additional Source Comments INFORMATION SOURCE (unrecogn ized section and content) DATE CREATED AUTHOR 04/13/2018 [facility] DATE CREATED AUTHOR AUTHOR'S ORGANIZ ATION [facility] DATE CREATED AUTHOR AUTHOR'S ORGANIZ ATION 10/05/2018 [facility] DATE CREATED AUTHOR AUTHOR'S ORGANIZ ATION 10/19/2019 [facility] DATE CREATED AUTHOR AUTHOR'S ORGANIZ ATION 09/28/2020 [facility] ([place]) DATE CREATED AUTHOR AUTHOR'S ORGANIZ ATION 04/15/2025 [facility] DATE CREATED AUTHOR AUTHOR'S ORGANIZ ATION 04/15/2025 [facility] Goals (unrecognized section and content) Goals [...] or prosecute any alcohol or drug abuse patient.[facility] HospitalIn the event this information is protected by the Federal Confidentiality of Alcohol and Drug Abuse Patient Records regulations: The Federal rules restrict any use of the information to criminally investigate or prosecute any alcohol or drug abuse patient.[facility] HospitalIn the event this information is protected by the Federal Confidentiality of Alcohol and Drug Abuse Patient Records regulations: The Federal rules restrict any use of the information to criminally investigate or prosecute any alcohol or drug abuse patient.[facility] HospitalIn the event this information is protected by the Federal Confidentiality of Alcohol and Drug Abuse Patient Records regulations: The Federal rules restrict any use of the information to criminally investigate or prosecute any alcohol or drug abuse patient.[facility] HospitalIn the event this information is protected by the Federal Confidentiality of Alcohol and Drug Abuse Patient Records regulations: The Federal rules restrict any use of the information to criminally investigate or prosecute any alcohol or drug abuse patient.[facility] HospitalIn the event this information is protected by the Federal Confidentiality of Alcohol and Drug Abuse Patient Records regulations: The Federal rules restrict any use of the information to criminally investigate or prosecute any alcohol or drug abuse patient.[facility] HospitalIn the event this information is protected by the Federal Confidentiality of Alcohol and Drug Abuse Patient Records regulations: The Federal rules restrict any use of the information to criminally investigate or prosecute any alcohol or drug abuse patient.[facility] HospitalIn the event this information is protected by the Federal Confidentiality of Alcohol and Drug Abuse Patient Records regulations: The Federal rules restrict any use of the information to criminally investigate or prosecute any alcohol or drug abuse patient.[facility] HospitalIn the event this information is protected by the Federal Confidentiality of Alcohol and Drug Abuse Patient Records regulations: The Federal rules restrict any use of the information to criminally investigate or prosecute any alcohol or drug abuse patient.[facility] HospitalIn the event this information is protected by the Federal Confidentiality of Alcohol and Drug Abuse Patient Records regulations: The Federal rules restrict any use of the information to criminally investigate or prosecute any alcohol or drug abuse patient.[facility] HospitalIn the event this information is protected by the Federal Confidentiality of Alcohol and Drug Abuse Patient Records regulations: The Federal rules restrict any use of the information to criminally investigate or prosecute any alcohol or drug abuse patient.[facility] HospitalIn the event this information is protected by the Federal Confidentiality of Alcohol and Drug Abuse Patient Records regulations: The Federal rules restrict any use of the information to criminally investigate or prosecute any alcohol or drug abuse patient.[facility] HospitalIn the event this information is protected by the Federal Confidentiality of Alcohol and Drug Abuse Patient Records regulations: The Federal rules restrict any use of the information to criminally investigate or prosecute any alcohol or drug abuse patient.[facility] HospitalIn the event this information is protected by the Federal Confidentiality of Alcohol and Drug Abuse Patient Records regulations: The Federal rules restrict any use of the information to criminally investigate or prosecute any alcohol or drug abuse patient.[facility] HospitalIn the event this information is protected by the Federal Confidentiality of Alcohol and Drug Abuse Patient Records regulations: The Federal rules restrict any use of the information to criminally investigate or prosecute any alcohol or drug abuse patient.[facility] HospitalIn the event this information is protected by the Federal Confidentiality of Alcohol and Drug Abuse Patient Records regulations: The Federal rules restrict any use of the information to criminally investigate or prosecute any alcohol or drug abuse patient.[facility] HospitalIn the event this information is protected by the Federal Confidentiality of Alcohol and Drug Abuse Patient Records regulations: The Federal rules restrict any use of the information to criminally investigate or prosecute any alcohol or drug abuse patient.[facility] HospitalIn the event this information is protected by the Federal Confidentiality of Alcohol and Drug Abuse Patient Records regulations: The Federal rules restrict any use of the information to criminally investigate or prosecute any alcohol or drug abuse patient.[facility] HospitalIn the event this information is protected by the Federal Confidentiality of Alcohol and Drug Abuse Patient Records regulations: The Federal rules restrict any use of the information to criminally investigate or prosecute any alcohol or drug abuse patient.[facility] HospitalIn the event this information is protected by the Federal Confidentiality of Alcohol and Drug Abuse Patient Records regulations: The Federal rules restrict any use of the information to criminally investigate or prosecute any alcohol or drug abuse patient.[facility] HospitalIn the event this information is protected by the Federal Confidentiality of Alcohol and Drug Abuse Patient Records regulations: The Federal rules restrict any use of the information to criminally investigate or prosecute any alcohol or drug abuse patient.[facility] HospitalIn the event this information is protected by the Federal Confidentiality of Alcohol and Drug Abuse Patient Records regulations: The Federal rules restrict any use of the information to criminally investigate or prosecute any alcohol or drug abuse patient.[facility] HospitalIn the event this information is protected by the Federal Confidentiality of Alcohol and Drug Abuse Patient Records regulations: The Federal rules restrict any use of the information to criminally investigate or prosecute any alcohol or drug abuse patient.[facility] HospitalIn the event this information is protected by the Federal Confidentiality of Alcohol and Drug Abuse Patient Records regulations: The Federal rules restrict any use of the information to criminally investigate or prosecute any alcohol or drug abuse patient.[facility] HospitalIn the event this information is protected by the Federal Confidentiality of Alcohol and Drug Abuse Patient Records regulations: The Federal rules restrict any use of the information to criminally investigate or prosecute any alcohol or drug abuse patient.[facility] HospitalIn the event this information is protected by the Federal Confidentiality of Alcohol and Drug Abuse Patient Records regulations: The Federal rules restrict any use of the information to criminally investigate or prosecute any alcohol or drug abuse patient.[facility] HospitalIn the event this information is protected by the Federal Confidentiality of Alcohol and Drug Abuse Patient Records regulations: The Federal rules restrict any use of the information to criminally investigate or prosecute any alcohol or drug abuse patient.[facility] HospitalIn the event this information is protected by the Federal Confidentiality of Alcohol and Drug Abuse Patient Records regulations: The Federal rules restrict any use of the information to criminally investigate or prosecute any alcohol or drug abuse patient.[facility] HospitalIn the event this information is protected by the Federal Confidentiality of Alcohol and Drug Abuse Patient Records regulations: The Federal rules restrict any use of the information to criminally investigate or prosecute any alcohol or drug abuse patient.[facility] HospitalIn the event this information is protected by the Federal Confidentiality of Alcohol and Drug Abuse Patient Records regulations: The Federal rules restrict any use of the information to criminally investigate or prosecute any alcohol or drug abuse patient.[facility] HospitalIn the event this information is protected by the Federal Confidentiality of Alcohol and Drug Abuse Patient Records regulations: The Federal rules restrict any use of the information to criminally investigate or prosecute any alcohol or drug abuse patient.[facility] HospitalIn the event this information is protected by the Federal Confidentiality of Alcohol and Drug Abuse Patient Records regulations: The Federal rules restrict any use of the information to criminally investigate or prosecute any alcohol or drug abuse patient.[facility] HospitalIn the event this information is protected by the Federal Confidentiality of Alcohol and Drug Abuse Patient Records regulations: The Federal rules restrict any use of the information to criminally investigate or prosecute any alcohol or drug abuse patient.[facility] Reason for Visit (unrecogniz ed section [...] Date Comments Population Health Navigation Outreach 08/18/2023 [place] care gaps Reason Onset Date Comments Refill [...] Date Comments Population Health Navigation Outreach 02/17/2024 [place] CC MA 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 - AWV, Care gaps, HCC gap closure - [place] [facility]SA Reason Onset Date Comments Refill Request 03/21/2024 Reason Onset Date Comments ACM TIARA RN 04/06/2024 Reason Onset Date Comments Population Health Navigation Outreach 09/08/2024 [place] No PCP Reason Onset Date Comments Population Health Navigation Outreach 11/29/2024 [employer] workbench [place] Reason Onset Date Comments Allied Health Visit 01/05/2025 Medication A dherence Outreach Reason Onset Date Comments Population Health Navigation Outreach 03/20/2025 [employer] Workbench [place] Reason Onset Date Comments Diabetes 03/21/2025 Care Teams (unrecognized sec tion and content) Team Status: Active Member Role Status Dates Dr. Carlee Valencia III, MD Family Provider Active Dr. Lizet Linares MD Primary Care Provider Active Team Status: Inactive Member Role Status Dates Dr. Ganesh Garcia MD Primary Care Provider, [facility] Active Miriam Cameron PLASTICS REPAIRER, PLASTICS REPAIRER-C Attending Provider Active Team Status: Inactive Member Role Status Dates Dr. Ganesh Garcia MD Primary Care Provider Active Ana Maria Geller NP, PLASTICS REPAIRER-C Attending Provider Active Team Status: Inactive Member Role Status Dates Dr. Lizet Linares MD Primary Care Provider, Atten ding Provider Active Team Status: Inactive Member Role Status Dates Dr. Lizet Linares MD Primary Care Provider Active Ana Maria Geller NP, PLASTICS REPAIRER-C Attending Provider Active Team Status: Inactive Member [...] Lizet Linares MD Primary Care Provider Active FRANSISCO Marin Attending Provider Active Team Status: Inactive Member [...] Primary Care Provider Active Ana Maria Geller PLASTICS REPAIRER, PLASTICS REPAIRER-C Attending Provider, Referring Provider Active Team Status: Inactive Member Role Status Dates Dr. Lizet Linares MD Primary Care Provider Active Ana Maria Geller PLASTICS REPAIRER, PLASTICS REPAIRER-C Attending Provider, Referring Provider Active Team Status: Inactive Member Role Status Dates Dr. Lizet Linares MD Primary Care Provider Active Dr. Marck Dunn DO Emergency Provider Active Team Status: Inactive Member Role Status Dates Dr. Lizet Linares MD Primary Care Provider Active Ganesh NOLASCO MD Attending Provider Active Guest House Manager Relationship Specialty Start Date End Date Dwayne Lopez MD [address] [place] [address] PCP - General Family Medicine 03/24/23 Team Status: Inactive Member Role Status Dates Dr. Ganesh Garcia MD Referring Provider Active Miriam Cameron PLASTICS REPAIRER, PLASTICS REPAIRER-C Attending Provider Active Dr. Lizet Linares MD [...] Active Ellis Peterson MD Emergency Provider Active Guest House Manager Relationship Specialty Start Date End Date Dwayne Lopez MD [address] [place], [place] [address] PCP - General Family Medicine 03/24/23 Guest House Manager Relationship Specialty Start Date End Date Dwayne Lopez MD [address] [place] [address] PCP - General Family Medicine 03/24/23 Guest House Manager Relationship Specialty Start Date End Date Dwayne Lopez MD [address] [place] [address] PCP - General Family Medicine 03/24/23 Guest House Manager Relationship Specialty Start Date End Date Dwayne Lopez MD [address] [place] [address] PCP - General Family Medicine 03/24/23 Guest House Manager Relationship Specialty Start Date End Date Dwayne Lopez MD [address] [place] [address] PCP - General Family Medicine 03/24/23 Guest House Manager Relationship Specialty Start Date End Date Dwayne Lopez MD [address] [place] [address] PCP - General Family Medicine 03/24/23 Guest House Manager Relationship Specialty Start Date End Date Dwayne Lopez MD [address] [place] [address] PCP - General Family Medicine 03/24/23 Team Status: Active Member Role Status Dates Dr. Carlee Valencia III, MD Family Provider Active Dr. Jarred Lopez MD Primary Care Provider Acti ve Team Status: Inactive Member Role Status Dates Dr. iLzet Linares MD Primary Care Provider Active Ellis [...] Dr. Raisa Mc MD Emergency Provider Active Guest House Manager Relationship Specialty Start Date End Date Dwayne Lopez MD [address] [place] [address] PCP - General Family Medicine 03/24/23 Guest House Manager Relationship Specialty Start Date End Date Dwayne Lopez MD [address] [place] [address] PCP - General Family Medicine 03/24/23 Guest House Manager Relationship Specialty Start Date End Date Dwayne Lopez MD [address] [place] [address] PCP - General Family Medicine 03/24/23 Guest House Manager Relationship Specialty Start Date End Date Dwayne Lopez MD [address] [place] [address] PCP - General Family Medicine 03/24/23 Team [...] Care Provider Acti ve Dr. Zack Choi Emergency Provider Active Dr. John Shaw MD [...] Provider, Other Provider Active Dr. Chavez Alcala , Attending Provider, Other Provider Active Team Status: [...] Provider Active Dr. Ana Rivera , Attending Provider, Other Provide r Active Dr. Chavez Alcala , DO Other Provider Active Team Status: Inactive Member Role Status Dates Dr. Jarred Lopez MD Primary Care Provider Acti ve Dr. Raisa Mc MD Emergency Provider Active Dr. Hansa Cast MD Admit Provider, Other Provider Active Dr. Ana Miguel , DO Attending Provider Active Dr. Chavez Alcala [...] Care Provider Acti ve Ana Maria Geller PLASTICS REPAIRER, PLASTICS REPAIRER-C Attending Provider Active Team Status: Inactive Member Role Status Dates Dr. Jarred Lopez MD Primary Care Provider Acti ve Ellis Peterson MD Emergency Provider Active Guest House Manager Relationship Specialty Start Date End Date Dwayne Lopez MD [address] [place] [address] PCP - General Family Medicine 03/24/23 Guest House Manager Relationship Specialty Start Date End Date Dwayne Lopez MD [address] [place] [address] PCP - General Family Medicine 03/24/23 Team [...] NOLASCO MD Attending Provider, Referring Provider Active Guest House Manager Relationship Specialty Start Date End Date Dwayne Lopez MD [address] [place] [address] PCP - General Family Medicine 03/24/23 Guest House Manager Relationship Specialty Start Date End Date Dwayne Lopez MD [address] [place], [place] [address] PCP - General Family Medicine 09/08/24 Guest House Manager Relationship Specialty Start Date End Date Dwayne Lopez MD [address] [place], [place] [id number] PCP - General Family Medicine 09/08/24 [facility] [place], JAMIE.DIGITAL COLOR PRESS OPERATOR [address] [place], [place] [id number] Chocolate Finisher Operator Family Medicine 09/30/24 Guest House Manager Relationship Specialty Start Date End Date Dwayne Lopez MD [address] [place], [place] [address] PCP - General Family Medicine 09/08/24 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, CARE AIDE.DIGITAL COLOR PRESS OPERATOR [address] [place], [place] [id number] Chocolate Finisher Operator Family Medicine 09/30/24 Annabel Rivas, JAMIE.DIGITAL COLOR PRESS OPERATOR [address] [place], [place] [address] Chocolate Finisher Operator Family Medicine 01/05/25 Team Status: Active Member Role Status [...] Inactive Member Role Status Dates Dr. Lizet Lianres MD Primary Care Provider Active Start: October [...] 2024 End: October 27, 2024 Ana Maria Geller PLASTICS REPAIRER, PLASTICS REPAIRER-C Attending Provider Active Start: October 27, 2024 [...] End: January 22, 2025 Ana Maria Geller NP, PLASTICS REPAIRER-C Attending Provider Active Start: January 22, 2025 End: January 22, 2025 Guest House Manager Relationship Specialty Start Date End Date Dwayne Lopez MD [address] [facility], [place] [address] PCP - General Family Medicine 09/08/24 PodlogJesica sharma APRN.DIGITAL COLOR PRESS OPERATOR [address] [place], [place] [address] Chocolate Finisher Operator Family Medicine 09/30/24 Annabel Rivas APRN.DIGITAL COLOR PRESS OPERATOR [address] [place] [address] Chocolate Finisher Operator Family Medicine 01/15/25 Guest House Manager Relationship Specialty Start Date End Date Dwayne Lopez MD [address] [place], [place] [address] PCP - General Family Medicine 09/08/24 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 [address] [place] [address] Chocolate Finisher Operator Family Medicine 09/30/24 Annabel Rivas APRN.DIGITAL COLOR PRESS OPERATOR [address] [place] [address] [facility] 01/15/25 Guest House Manager Relationship Specialty Start Date End Date Dwayne Lopez MD [address] [place] [address] PCP - General Family Medicine 09/08/24 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 [address] [place] [address] Chocolate Finisher Operator Family Medicine 09/30/24 Team Status: Inactive Member Role Status Dates Dr. Lizet Linares MD Primary Care Provider Active Start: January 23, 2025 End: January 23, 2025 Dr. Lizet Linares MD Attending Provider Active Start: January 23, 2025 End: January 23, 2025 Team Status: Inactive Member Role Status Dates Dr. Lizet Linares MD Primary Care Provider Active Start: January 30, 2025 End: January 30, 2025 Dr. Lizet Linares MD Referring Provider Active Start: January 30, 2025 End: January 30, 2025 Shonda Chávez PA, PA Attending Provider Active Start: January 30, 2025 End: January 30, 2025 Team Status: Active Member Role Status Dates Dr. Lizet Linares MD Primary Care Provider Active Start: March 05, 2025 FRANSISCO Marin Attending Provider Active Start: March 05, 2025 Team Status: Inactive Member Role Status Dates Dr. Lizet Linares MD Primary Care Provider Active Start: March 12, 2025 End: March 12, 2025 Lizet NOLASCO MD Attending Provider Active Start: March 12, 2025 End: March 12, 2025 Lizet NOLASCO MD Referring Provider Active Start: March 12, 2025 End: March 12, 2025 Guest House Manager Relationship Specialty Start Date End Date Dwayne Lopez MD [address] [place], [place] [address] PCP - General Family Medicine 09/08/24 Jesica Mina APRN.DIGITAL COLOR PRESS OPERATOR [address] [address] [id number] [facility] 09/30/24 Annabel Rivas APRN.DIGITAL COLOR PRESS OPERATOR [address] [place], [place] [phone] [facility] 04/05/25 FOR RECORDS PERTAINING TO PATIENTS WHO ARE [...] BE BASED ON THE PRIMARY CLINICAL RECORDS. [facility] [employer] provides no warranty or guarantee of the accuracy or completeness of information in this document.
[2025-04-25 08:51] LABS: Anion Gap 12 (5-15); BUN 29 mg/dL (4-19); BUN/Creat Ratio 21.3 RATIO (10-20); Calcium,Total 9.2 mg/dL (7.6-11.0); Carbon Dioxide 23.8 mmol/L (21.0-32.0); Chloride 100 mmol/L (98-108); Glucose 217 mg/dL (70-99); Potassium 4.4 mmol/L (3.3-5.1)
[2025-04-25 09:21] LABS: Pro- Brain NATRIURETIC PEPTIDE 220 pg/mL (<=900)
== END ==
LOC: OLS.WHL 05:00
PROVIDERS: PCP Internal Medicine; Visit Provider Internal Medicine
DX: R60.9 Edema, unspecified (principal); E11.22 Type 2 diabetes mellitus with diabetic chronic kidney disease; E11.42 Type 2 diabetes mellitus with diabetic polyneuropathy; N18.31 Chronic kidney disease, stage 3a; I12.9 Hypertensive chronic kidney disease with stage 1 through stage 4 chronic kidney disease, or unspecified chronic kidney disease; E03.9 Hypothyroidism, unspecified
CPT/HCPCS: 36415; 80048; 83880; 84443

== ENCOUNTER → 2025-05-07 05:00 | Outpatient (REF) | payer MEDICARE, MEDICAID, SELFPAY ==
[2025-05-07 09:10] LABS: Anion Gap 12 (5-15); BUN 27 mg/dL (4-19); BUN/Creat Ratio 17.0 RATIO (10-20); Calcium,Total 8.9 mg/dL (7.6-11.0); Carbon Dioxide 23.8 mmol/L (21.0-32.0); Chloride 99 mmol/L (98-108); Glucose 232 mg/dL (70-99); Potassium 4.2 mmol/L (3.3-5.1)
[2025-05-07 12:02] LABS: Hematocrit 34.0 % (37-47); Hemoglobin 10.4 g/dL (12.0-15.0); Immature Granulocytes Count 0.030 X10^3/uL (0.0-0.0); Mean Corp Hgb Conc 30.6 g/dL (32-36); Mean Corpuscular Volume 92.1 fL (81-99); Mean Platelet Vol. 10.0 fl (6.2-12.0); NRBC Flagged by Analyzer 0 % (0-5); Platelet Count 338 K/mm3 (150-450); RBC Distribution Width CV 15.2 % (11.6-14.6); RBC Distribution Width SD 50.5 fl (35.1-43.9); Red Blood Count 3.69 M/mm3 (4.2-5.4); White Blood Count 5.9 K/mm3 (4.4-11.0)
== END ==
LOC: OLS.WHLEAS 05:00
PROVIDERS: PCP Internal Medicine; Visit Provider Internal Medicine
DX: E11.22 Type 2 diabetes mellitus with diabetic chronic kidney disease (principal); N18.31 Chronic kidney disease, stage 3a; E11.42 Type 2 diabetes mellitus with diabetic polyneuropathy; I12.9 Hypertensive chronic kidney disease with stage 1 through stage 4 chronic kidney disease, or unspecified chronic kidney disease; E03.9 Hypothyroidism, unspecified
CPT/HCPCS: 36415; 80048; 85025

== ENCOUNTER 2025-05-26 00:25 | Emergency (ER) | payer MEDICARE, MEDICAID, SELFPAY ==
[2025-05-26] VITALS (8 sets, daily range): BP systolic 125–147; BP diastolic 50–86; PULSE 74–87; RESP 16–20; TEMP 37.1; O2SAT 92–98; BMI 41.6
--- OUTSIDE RECORDS SUMMARY | 2025-05-26 01:20 | XMS RPT_ITS | CCD ---
Author Organization [facility] Care Team Providers Care Bonding And Composite Fabricator Name Role Phone SIXTO CALIXTO Unavailable Unavailable SIXTO CALIXTO Unavailable Unavailable CEBULCARLEE Unavailable Unavailable Wil CASTANO, Angelika Cross Unavailable Unavailab le Calixto, Tj L Unavailable Unavailable Calixto, Tj L Unavailable Unavailable Calixto, Tj L Unavailable Unavailable No Family Physician given Unavailable Unavai lable Calixto, Tj L Unavailable Unavailable No Family Physician given Unavailable Unavai lable Calixto, Tj L Unavailable Unavailable No Family Physician given Unavailable Unavai lable Dr. Jarred Lopez Primary Care Provider [phone] Dr. Kelechi Geller Emergency Provider Dr. Kathia Shine Admit Provider Dr. Kathia Shine Other Provider DORIS RivasC Annabel Attending Provider Unavail able Dr. Kathia Shine Attending Provider Dr. Ramez Prieto Attending Provider Dr. Ramez Prieto Other Provider Velasquez BRUSH CLEARING LABORER, BRUSH CLEARING LABORER-C Tanisha Attending Provider Unavailable Primary Care Provider UnavailDr. Ana Mckeon Attending Provider Dr. Ana Rivera Other Provider Dr. Bronson Retana Emergency Provider Luis Felipe, Dr. Yanna Stern Admit Provider Dr. Yanna Briscoe Attending Provider Dr. Yanna Briscoe Other Provider Dr. Mian Lee Attending Provider Dr. Ganesh Garcia Primary Care Provider Yimi ADKINS, BRUSH CLEARING LABORER-C Ana Maria Attending Provider Unav Dr. Scott Salamanca Referring Provider Dr. Tip Hamilton Emergency Provider Dr. Hansa Cast Admit Provider Dr. Hansa Cast Other Provider Dr. Júnior Lombardo Attending Provider Dr. Júnior Lombardo Other Provider Miriam Cote Attending Provider Unavailable Dr. Ganesh Garcia Referring Provider Rakesh ADKINS, BRUSH CLEARING LABORER-C Miriam Attending Provider Dr. Jarred Lopez Primary Care Provider Dr. Ramez Prieto Other Provider Dr. Ramez Prieto Attending Provider Dr. Ganesh Garcia Primary Care Provider Dr. Mian Lee Attending Provider Yimi BRUSH CLEARING LABORER, BRUSH CLEARING LABORER-C Ana Maria Attending Provider Unav Dr. Ramez De Other Provider Dr. Ganesh Garcia Primary Care Provider Miriam Cote Attending Provider Unavailable Dr. Ganesh Garcia Referring Provider Rakesh ADKINS, BRUSH CLEARING LABORER-C Miriam Attending Provider Dr. Júnior Lombardo Attending Provider Yimi ADKINS, JED-Zeus Rodgers Attending Provider Dr. Ganesh Steinberg Primary Care Provider Dr. Ganesh Garcia Primary Care Provider Dr. Lizet Linares Primary Care Provider Dr. Lizet Linares Attending Provider Dr. Ganesh Garcia Referring Provider Rakesh BRUSH CLEARING LABORER, BRUSH CLEARING LABORER-C Miriam Attending Provider Dr. Ganesh Garcia Primary Care Provider Dr. Ganesh Garcia Primary Care Provider Dr. Ganesh Garcia Referring Provider Rakesh BRUSH CLEARING LABORER, BRUSH CLEARING LABORER-C Miriam Attending Provider Dr. Lizet Linares Primary Care Provider Tickwinsome BRUSH CLEARING LABORER, BRUSH CLEARING LABORER-C Ana Maria Attending Provider Unav Dr. Lizet Coronel Attending Provider Yimi OLS, BRUSH CLEARING LABORER-C Ana Maria Attending Provider [phone] Unavailable Primary Care Provider UnavailDr. Lizet Sandhu Primary Care Provider [phone] Yimi BRUSH CLEARING LABORER, BRUSH CLEARING LABORER-C Ana Maria Attending Provider Unav Dr. Lizet Coronel Attending Provider Yimi OLS, BRUSH CLEARING LABORER-C Ana Maria Attending Provider [phone] Dwayne Lopez MD Primary Care Provider Dr. Lizet Linares Primary Care Provider Yimi BRUSH CLEARING LABORER, BRUSH CLEARING LABORER-C Ana Maria Attending Provider Unav Dr. Lizet Coronel Attending Provider Dr. Ganesh Garcia Referring Provider Rakesh BRUSH CLEARING LABORER, BRUSH CLEARING LABORER-C Miriam Attending Provider Dr. Lizet Linares Primary Care Provider [phone] Dr. Lizet Linares Attending Provider Yimi BRUSH CLEARING LABORER, BRUSH CLEARING LABORER-C Ana Maria Attending Provider Unav Dr. Jarred Avila Primary Care Provider Dr. Zack Choi Emergency Provider [phone] Dr. John Shaw Admit Provider Unavailable Dr. John Shaw Attending Provider Unavailable Dr. John Shaw Other Provider Unavailable Dr. Paresh Hernandez Attending Provider Dr. Paresh Hernandez Other Provider Dr. Jarred Lopez Primary Care Provider Dr. Zack Choi Emergency Provider Dr. John Shaw Admit Provider Unavailable Kitcharles, Dr. Lopez Attending Provider Unavailable Kitcharles, Dr. Lopez Other Provider Unavailable David, Dr. Yoder Attending Provider David, Dr. Yoder Other Provider Dr. Raisa Mc Emergency Provider Dr. Hansa Cast Admit Provider Dr. Hansa Cast Other Provider Dr. Chavez Alcala Attending Provider [phone] Dr. Chavez Alcala Other Provider [phone] Dr. Cat Guadarrama Attending Provider Dr. Juan Valencia Attending Provider Dr. Jarred Lopez Primary Care Provider [phone] Dr. Zack Choi Emergency Provider Dr. John Shaw Admit Provider Unavailable Kitcharles, Dr. Lopez Attending Provider Unavailable Kitcharles, Dr. Lopez Other Provider Unavailable Dvaid, Dr. Yoder Attending Provider Dr. Paresh Hernandez Other Provider Dr. Raisa Mc Emergency Provider Dr. Hansa Cast Admit Provider Dr. Hansa Cast Other Provider Dr. Chavez Alcala Attending Provider [phone] Dr. Chavez Alcala Other Provider [phone] Cat Guadarrama Attending Provider Dr. Juan Valencia Attending Provider Dr. Ana Rivera Attending Provider Dr. Ana Rivera Other Provider Yimi BRUSH CLEARING LABORER, BRUSH CLEARING LABORER-C Ana Maria Attending Provider Dr. Lizet Linares Attending Provider Dr. Chavez Alcala Referring Provider John SANTANA, Dwayne Kaiser Primary Care Provider Unavailable Primary Care Provider Unavailabl Dwayne Bean MD Primary Care Provider Podlogar WELDING 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 PLASMA ARC.SIGNING AGENT, Jesica Unavailable Knoble WELDING 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 PLASMA ARC.SIGNING AGENT, Annabel Unavailable Milagros SANTANA, Dr. Hinds Primary Care Provider Dr. Lizet Linares MD Attending Provider [phone] Lizet Linares MD Attending Provider Unavailjosé manuel Linares MD, Dr. Hinds Referring Provider [phone] Lizet Linares MD Referring Provider UnavailDr. Salvador Min DO Attending Provider Dr. Salvador Campbell DO Emergency Provider Yimi BRUSH CLEARING LABORER-C, Ana Maria Attending Provider Dr. Zack Choi DO Emergency Provider Dr. Lizet Linares MD Primary Care Provider Dr. Lizet Linares MD Attending Provider [phone] Claude Cain Attending Provider Dr. Zack Choi DO Attending Provider Evelyn WELDING 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 PLASMA ARC.SIGNING AGENT, Annabel Unavailable Dr. Lizet Linares MD Primary Care Provider Dr. Lizet Linares MD Attending Provider [phone] Lizet Linares MD Attending Provider UnavailClaude Perez Attending Provider Dr. Zack Choi DO Attending Provider Dr. Zack Choi DO Emergency Provider Yimi ADKINS-CAna Maria Attending Provider Dr. Lizet Linares MD Referring Provider Shonda Glover Attending Provider Yimi BRUSH CLEARING LABORER-CAna Maria Attending Provider [phone] Lizet Linares MD Referring Provider Unavailjosé manuel Rivas APRN.CNP, Annabel Unavailable Milagros SANTANA, Dr. Hinds Primary Care Provider Milagros SANTANA, Dr. Hinds Attending Provider [phone] Lizet Linares MD Attending Provider Unavaila Claude Rivera Attending Provider Dr. Lizet Linares MD Primary Care Provider Yimi BRUSH CLEARING LABORER-CAna Maria Attending Provider Oleghe, Efewongbe Primary Care Unavailable Oleghe OLS, Efewongbe Attending Unavailabl e Oleghe OLS, Efewongbe Referring Unavailabl e Oleghe OLS, Efewongbe Attending Unavailabl e Oleghe, Efewongbe Primary Care Unavailable Oleghe, Efewongbe Primary Care Unavailable Ana Maria Geller NP Attending Unavailable Oleghe, Efewongbe Primary Care Unavailable Salvador Campbell Attending Unavailable Oleghe, Efewongbe Primary Care Unavailable Oleghe OLS, Efewongbe Attending Unavailabl e Oleghe OLS, Efewongbe Attending Unavailabl e Oleghe, Efewongbe Primary Care Unavailable Oleghe, Efewongbe Primary Care Unavailable Oleghe OLS, Efewongbe Attending Unavailabl e Sumit Urbina Attending Unavailable Oleghe, Efewongbe Referring Unavailable Oleghe, Efewongbe Primary Care Unavailable Oleghe [...] OLS, Efewongbe Referring Unavailabl e Oleghe, Efewongbe Attending Unavailable Oleghe, Efewongbe Primary Care Unavailable Oleghe, Efewongbe Primary Care Unavailable [place]ton BRUSH CLEARING LABORER, Ana Maria Attending Unavailable Oleghe, Efewongbe Primary Care Unavailable [place] BRUSH CLEARING LABORER, Ana Maria Attending Unavailable Raúl Alejo Attending Unavailable Oleghe, Efewongbe [...] Care Unavailable Oleghe, Efewongbe Primary Care Unavailable Adebayo Camp Attending Unavailable Oleghe, Efewongbe Primary Care Unavailable Zack Choi Attending Unavailable Salvador Campbell Attending Unavailable Oleghe, Efewongbe [...] Efewongbe Attending Unavailable Oleghe, Efewongbe Referring Unavailable Jacqueline Renteria Attending Unavailable Jacqueline Renteria Referring Unavailable Bursley, Jarred Primary Care Unavailable Daniel Mari Referring Unavailable Daniel Mari Attending Unavailable Oleghe, Efewongbe Primary Care Unavailable Oleghe OLS, Efewongbe Attending Unavailabl e Bursley, Jarred Primary Care Unavailable Oleghe, Efewongbe Primary Care Unavailable Ana Maria Geller NP Attending Unavailable Oleghe OLS, Efewongbe Attending Unavailabl e Bursley, Jarred Primary Care Unavailable Oleghe, Efewongbe Primary Care Unavailable [place] BRUSH CLEARING LABORER, Ana Maria Attending Unavailable Oleghe, Efewongbe Primary Care Unavailable Oleghe, Efewongbe Attending Unavailable Oleghe, Efewongbe Primary Care Unavailable [place] BRUSH CLEARING LABORER, Ana Maria Attending Unavailable Oleghe, Efewongbe Primary Care Unavailable Oleghe, Efewongbe Attending Unavailable Oleghe, Efewongbe Primary Care Unavailable [place] BRUSH CLEARING LABORER, Ana Maria Attending Unavailable Oleghe, Efewongbe Attending Unavailable Oleghe, Efewongbe Primary Care Unavailable Oleghe, Efewongbe Primary Care Unavailable [place] BRUSH CLEARING LABORER, Ana Maria Attending Unavailable Oleghe, Efewongbe Primary Care Unavailable [place] BRUSH CLEARING LABORER, Ana Maria Attending Unavailable Oleghe, Efewongbe Primary Care Unavailable [place] BRUSH CLEARING LABORER, Ana Maria Attending Unavailable Oleghe, Efewongbe Primary Care Unavailable [place] BRUSH CLEARING LABORER, Ana Maria Attending Unavailable Oleghe, Efewongbe Primary Care Unavailable Oleghe, Efewongbe Attending Unavailable Friend, Napoleon Attending Unavailable Oleghe, Efewongbe Primary Care Unavailable Friend, Napoleon Consulting Unavailable Oleghe, Efewongbe Referring Unavailable Oleghe, Efewongbe Primary Care Unavailable [place]ton BRUSH CLEARING LABORER, Ana Maria Attending Unavailable Oleghe, Efewongbe Attending Unavailable Oleghe, Efewongbe Primary Care Unavailable Claude Cain Attending Unavailable Oleghe, Efewongbe Primary Care Unavailable Oleghe, Efewongbe Primary Care Unavailable Sumit Urbina Attending Unavailable Oleghe, Efewongbe Referring Unavailable Oleghe, Efewongbe Primary Care Unavailable Claude Cain Attending Unavailable Oleghe, Efewongbe Primary Care Unavailable [place]ton Ana Maria ADKINS Attending Unavailable Oleghe, Efewongbe Primary Care Unavailable Shonda Glover Attending Unavail able Oleghe, Efewongbe Referring Unavailable Gabrielle Arreguin Attending Unavailable Bursley, Jarred Referring Unavailable Bursley, Jarred Primary Care Unavailable Friend, Napoleon Attending Unavailable Oleghe, Efewongbe Primary Care Unavailable Oleghe, Efewongbe Referring Unavailable Oleghe, Efewongbe Primary Care Unavailable Oleghe OLS, Efewongbe Attending Unavailabl e Allergies Allergy Classification Reported Allergen(s) Allergy Type Date of Onset Reaction(s) Facility (20 sources) ciprofloxacin; Translations: [CIPROFLOXACIN] Drug Allergy 8 Swelling [facility] Repository (20 sources) codeine; Translations: [CODEINE] Drug Allergy 4 Hives, Itching [facility] Repository (20 sources) ibuprofen; Translations: [IBUPROFEN] Drug Allergy 7 [facility] Repository (20 sources) metFORMIN; Translations: [METFORMIN] Drug Allergy 7 Intolerance [facility] Repository (20 sources) naproxen; Translations: [NAPROXEN] Drug Allergy 7 [facility] Repository (20 sources) Penicillins; Translations: [PENICILLINS] Propensity to adverse reactions (disorder) 7 [facility] Repository (20 sources) traMADol; Translations: [TRAMADOL HCL] Drug Allergy 7 [facility] Repository (1 source) Ciprofloxacin Drug Allergy 7 [facility] Work Phone: (1 source) Ketorolac Drug Allergy itching [facility] Work Phone: (1 source) Naproxen Drug Allergy 0 eyes swell, hives [facility] Work Phone: (1 source) Penicillin V Drug Allergy hives [facility] Work Phone: (1 source) traMADol Drug Allergy face swells [facility] Work Phone: (20 sources) celecoxib Drug Allergy 0 Rash [facility] (20 sources) Ciprofloxacin; Translations: [ciprofloxacin HCl] Drug Allergy 2 Swelling [facility] (20 sources) Ketorolac Drug Allergy 9 GI Upset [facility] Work Phone: (1 source) celecoxib Drug Allergy 5 [facility] Repository (1 source) Ketorolac Drug Allergy 5 [facility] Repository Medications Current Medications Medication Drug Class(es) Dates Sig (Normalized) Sig (Original) acetaminophen 325 mg oral tablet (20 sources) Start: 11-24-2023 Acetaminophen 325 mg Tablet Active 650 mg PO EVERY 6 HOURS NEEDED as needed for Pain 1-10 Or Fever >100.7 0 0 November 24, 2023 1:00am Start: 11-24-2023 Start: 03-27-2022 End: 11-19-2023 take 2 tablets by mouth three times daily as needed for pain Acetaminophen 500 mg Tablet Discontinued 1000 mg PO THREE TIMES A DAY as needed for pain 0 0 March 27, 2022 12:00am November 19, 2023 11:26am Start: 03-27-2022 End: 11-19-2023 acetaminophen 325 mg / HYDROcodone bitartrate 5 mg oral tablet (20 sources) Opioid Agonist Start: 01-06-2023 take 1 tablet by mouth every four hours as needed Hydrocodone-Acetaminophen Active 1 TABLET PO EVERY 4 HOURS NEEDED 10 2 January 06, 2023 Start: 01-06-2023 Start: 02-28-2021 End: 05-13-2021 Hydrocodone-Acetaminophen 1 TABLET tablet Discontinued 1 {tbl} PO EVERY 6 HOURS NEEDED as needed for Pain 12 3 0 February 28, 2021 May 13, 2021 10:49am Acute right flank pain Unspecified abdominal pain Start: 02-28-2021 End: 05-13-2021 Start: 02-28-2021 End: 05-13-2021 Start: 02-28-2021 End: 05-13-2021 take 1 tablet by mouth every six hours as needed Hydrocodone-Acetaminophen Discontinued 1 TABLET PO EVERY 6 HOURS NEEDED 12 3 February 28, 2021 May 13, 2021 10:49am Start: 11-14-2019 End: 11-17-2019 Hydrocodone-Acetaminophen 1 EACH tablet Discontinued 1 NMA PO EVERY 4 HOURS NEEDED as needed for Pain Or Fever 10 3 0 November 14, 2019 November 16, 2019 1:00am November 17, 2019 1:08am Contusion of rib Contusion of unspecified front wall of thorax, initial encounter Start: 11-14-2019 End: 11-17-2019 Start: 11-14-2019 End: 11-17-2019 Start: 11-14-2019 End: 11-17-2019 Hydrocodone-Acetaminophen Discontinued 1 EACH PO EVERY 4 HOURS NEEDED 10 November 14, 2019 November 17, 2019 1:08am Start: 08-02-2019 End: 08-07-2019 Hydrocodone-Acetaminophen 1 TABLET tablet Discontinued 1 {tbl} PO EVERY 6 HOURS NEEDED as needed for Pain 10 3 0 August 02, 2019 August 04, 2019 12:00am August 07, 2019 12:09am Periumbilical hernia Umbilical hernia without obstruction or gangrene Start: 08-02-2019 End: 08-07-2019 Start: 08-02-2019 End: 08-07-2019 Start: 08-02-2019 End: 08-07-2019 take 1 tablet by mouth every six hours as needed Hydrocodone-Acetaminophen Discontinued 1 TABLET PO EVERY 6 HOURS NEEDED 10 August 02, 2019 August 07, 2019 12:09am Start: 06-29-2019 End: 07-07-2019 Hydrocodone-Acetaminophen 1 TABLET tablet Discontinued 1 {tbl} PO EVERY 6 HOURS NEEDED as needed for Pain 6 2 0 June 29, 2019 June 30, 2019 12:00am July 07, 2019 12:10am Calculus of kidney Calculus of kidney Start: 06-29-2019 End: 07-07-2019 Start: 06-29-2019 End: 07-07-2019 Start: 06-29-2019 End: 07-07-2019 take 1 tablet by mouth every six hours as needed Hydrocodone-Acetaminophen Discontinued 1 TABLET PO EVERY 6 HOURS NEEDED 6 2 June 29, 2019 July 07, 2019 12:10am Start: 07-24-2018 End: 07-27-2018 take 1 tablet by mouth four times daily as needed for pain Hydrocodone-Acetaminophen ([place] 5-325 Tablet) 1 EACH tablet Discontinued 1 - 2 NMA PO 4 TIMES DAILY NEEDED as needed for Pain 12 3 0 July 24, 2018 12:00am July 26, 2018 12:00am July 27, 2018 12:07am Fracture of rib Fracture of one rib, unspecified side, initial encounter for closed fracture Start: 07-24-2018 End: 07-27-2018 Start: 07-24-2018 End: 07-27-2018 Start: 07-19-2018 End: 07-22-2018 Hydrocodone-Acetaminophen 1 TABLET tablet Discontinued 1 {tbl} PO EVERY 6 HOURS NEEDED as needed for Pain 10 3 0 July 19, 2018 12:00am July 21, 2018 12:00am July 22, 2018 12:08am Contusion of rib on left side Acute kidney injury Uncontrolled type II diabetes mellitus Contusion of left front wall of thorax, initial encounter Acute kidney failure, unspecified Type 2 diabetes mellitus with hyperglycemia Start: 07-19-2018 End: 07-22-2018 Start: 07-19-2018 End: 07-22-2018 Start: 07-19-2018 End: 07-22-2018 take 1 tablet by mouth every six hours as needed Hydrocodone-Acetaminophen Discontinued 1 TABLET PO EVERY 6 HOURS NEEDED 10 3 July 19, 2018 12:00am July 22, 2018 [...] oral tablet (20 sources) Opioid Agonist Start: 05-23-2025 Oxycodone-Acet aminophen 5-325 mg tablet Active 1 {tbl} PO .every4 hours as needed for pain 100 30 0 May 23, 2025 June 21, 2025 12:00am Acute pain associated with herpes zoster Zoster without complications Start: 05-23-2025 Oxycodone-Acet aminophen 5-325 mg tablet Active 1 {tbl} PO .every4 hours as needed for pain 100 30 0 May 23, 2025 June 21, 2025 12:00am Acute pain associated with herpes zoster Zoster without complications Start: 05-23-2025 Oxycodone-Acet aminophen 5-325 mg tablet Active 1 {tbl} PO .every4 hours as needed for pain 100 30 0 May 23, 2025 June 21, 2025 12:00am Acute pain associated with herpes zoster Zoster without complications Start: 04-18-2025 End: 05-18-2025 Oxycodone-Acetaminophen 5-32 5 mg tablet Discontinued 1 {tbl} PO .every4 hours as needed for pain 60 30 0 April 18, 2025 May 17, 2025 12:00am May 18, 2025 12:08am Acute pain associated with herpes zoster Zoster without complications Start: 01-30-2025 End: 04-18-2025 Oxycodone-Acetaminophen 5-32 5 mg tablet Discontinued 1 {tbl} PO THREE TIMES A DAY as needed 0 January 30, 2025 12:00am April 18, 2025 9:26am Start: 01-07-2023 take 1 tablet by dmitry th every four hours Oxycodone-Acetaminophen (Percocet) 5-325 mg tablet Active 1 TABLET PO Q4H 12 4 January 07, 2023 Start: 01-07-2023 Start: 10-19-2019 End: 10-22-2019 Oxycodone-Acetaminophen 1 TA BLET tablet Discontinued 1 {tbl} PO EVERY 6 HOURS NEEDED as needed for Pain 10 3 0 October 19, 2019 October 21, 2019 1:00am October 22, 2019 1:08am Postoperative pain Contusion of hand Other acute postprocedural pain Contusion of unspecified hand, initial encounter Start: 10-19-2019 End: 10-22-2019 Start: 10-19-2019 End: 10-22-2019 Start: 10-19-2019 End: 10-22-2019 take 1 tablet by mouth every six hours as needed Oxycodone-Acetaminophen Discontinued 1 TABLET PO EVERY 6 HOURS NEEDED 10 3 October 19, 2019 October 22, 2019 1:08am Start: 01-08-2019 End: 01-11-2019 Oxycodone-Acetaminophen 1 TA BLET tablet Discontinued 1 {tbl} PO EVERY 6 HOURS NEEDED as needed for Pain 12 3 0 January 08, 2019 12:00am January 10, 2019 12:00am January 11, 2019 12:08am Contusion of chest wall Contusion of unspecified front wall of thorax, initial encounter Start: 01-08-2019 End: 01-11-2019 Start: 01-08-2019 End: 01-11-2019 Start: 01-08-2019 End: 01-11-2019 take 1 tablet by mouth every six hours as needed Oxycodone-Acetaminophen Discontinued 1 TABLET PO EVERY 6 HOURS NEEDED 12 3 January 08, 2019 12:00am January 11, 2019 [...] End: 08-18-2023 take 1 tablet by mouth at bedtime Atorvastatin 40 mg tablet Active 40 mg PO AT BEDTIME 30 May 21, 2022 12:00am Start: 10-15-2020 End: 04-07-2023 take 1 tablet [...] tablet (19 sources) gamma-Aminobutyric Acid-ergic Agonist Start: take 10 mg by mouth every six hours Baclofen Active 10 MG PO EVERY 6 HOURS April 23, 2022 11:00pm bisacodyl 10 mg rectal suppository (10 sources) Stimulant Laxative Start: Bisacodyl 10 mg suppository Active 10 mg [...] linx carboxymethylcellulose sodium 10 mg/ml ophthalmic solution (8 sources) Start : 01-30 take 1 drop(s) into [...] 2022 7:02pm citalopram 20 mg oral tablet (20 sources) Serotonin Reuptake Inhibitor Start: 01-30-2025 take 1 tablet by mouth once daily Citalopram 20 mg tablet Active 20 mg PO daily January 30, 2025 12:00am Start: 08-19-2024 End: 01-30-2025 take 1 tablet by mouth once daily Citalopram 10 mg tablet Discontinued 10 mg PO DAILY August 19, 2024 12:00am January 30, 2025 2:04pm Start: 06-20-2021 [facility] Citalopram (Celexa) 20 mg Tablet Active 20 MG PO DAILY June 20, 2021 6:19pm Start: 07-28-2017 CELEXA TABS as directed CITALOPRAM HYDROBROMIDE TABS [id number] Angelika De La Torre LPN clindamycin 300 mg oral capsule (1 source) Lincosamide Antibacterial Start: 04-23-2023 End: 04-30-2023 take 1 capsule by mouth three times daily clindamycin (CLEOCIN) 300 mg capsule Indications: Toothache Take 1 capsule by mouth three times daily for 7 days. 21 capsule 0 04/23/2023 04/30/2023 Active Comment on above: Take 1 capsule by mo [facility] three times daily for 7 days. [...] three times daily as needed CYCLOBENZAPRINE HCL [id number] Yaw Cabrera MD docusate sodium 50 mg / sennosides, [facility] 8.6 mg oral tablet (20 sources) Start: 01-05-2024 Sennosides-Doc usate Sodium (Stool Softener-Stimulant Laxat) 8.6-50 mg Tablet Active 2 {tbl} PO TWICE DAILY NEEDED as needed for Constipation 0 0 January 05, 2024 12:00am Start: 01-05-2024 Start: 01-05-2024 Start: 03-27-2022 End: 11-19-2023 Sennosides-Docusate Sodium ( Stool Softener-Stimulant Laxat) 8.6-50 mg Tablet Discontinued 2 {tbl} PO TWICE A DAY 0 0 March 27, 2022 12:00am November 19, [...] mL pen injector Discontinued 3 mg SC MO January 29, 2023 12:00am November [...] nostril Start: 08-10-2023 take 2 spray(s) by out once daily fluticasone (FLONASE) 50 mcg/actuation nasal spray Use 2 Sprays in each nostril once daily. Rinse mouth after use. 1 Each 08/10/2023 Active Start: 03-12-2010 End: 07-28-2017 take 2 spray(s) nasal route once daily FLONASE 50 MCG/ACT SUSP 2spray/nostril daily FLUTICASONE PROPIONATE [id number] Angelika De La Torre LPN Comment on above: Use 2 Sprays in each nostril once daily. Rinse mouth after use. 3 ml insulin glargine 100 unt/ml pen injector (20 sources) Insulin Analog Start: 04-07-2023 End: 04-07-2023 insulin glargine (LANTUS SOLOSTAR U-100 INSULIN) 100 unit/mL (3 mL) Inject 60 Units subcutaneously daily at bedtime. 5 Each 11 04/07/2023 Active Start: 01-29-2023 End: 11-24-2023 Insulin Glargine (Lantus Stevie ostar U-100 Insulin) 100 unit/mL (3 mL) insulin pen Discontinued 30 U SC AT BEDTIME January 29, 2023 12:00am November 24, 2023 3:09pm Start: 01-29-2023 End: 11-24-2023 insulin glargine (LANTUS STEVIE OSTAR U-100 INSULIN) 100 unit/mL (3 mL) Inject 60 Units subcutaneously daily at bedtime. 5 Each 04/07/2023 Active Start: 01-29-2023 Insulin Glargi ne (Lantus Solostar [...] 10, 2017 2:38pm June 23, 2021 12:32pm diabetes Start: 06-14-2016 End: 06-23-2021 inject 16 [IU] [...] 50 units at bedtime INSULIN GLARGINE SOLN [id number] Brenda Arthur MD Start: 03-10-2010 LANTUS SOLOSTA R SOPN 42 units at bedtimes INSULIN GLARGINE SOLN [id number] Brenda Arthur MD LANTUS SOLN 42 u nits at bedtime INSULIN GLARGINE SOLN [id number] Brenda Arthur MD LANTUS SOLOSTAR SOPN 32 units at bedtimes INSULIN GLARGINE SOLN [id number] Beth Doyle MA Comment on above: Inject [...] Glargine-Yfgn 100 unit/mL (3 mL) Insulin Pen (20 sources) Start: 08-19-2024 Insulin Glargi ne-Yfgn 100 [...] 2024 12:00am August 19, 2024 10:45pm Start: 01-05-2024 End: 08-19-2024 Insulin Glargine-Yfgn 100 [...] Discontinued 15 U SC AT BEDTIME 0 0 November 24, 2023 1:00am January 05, 2024 11:17am Start: 11-24-2023 End: 01-05-2024 Insulin Glargine-Yfgn 100 un it/mL (3 mL) Insulin Pen Discontinued 15 U SC WITH BREAKFAST 0 0 November 24, 2023 1:00am January 05, [...] 1:00am January 05, 2024 11:17am levothyroxine sodium 0.137 mg oral tablet (20 sources) l-Thyroxine Start: 04-26-2025 take 1 tablet by mouth once daily Levothyroxine (Levoxyl) 137 mcg tablet Active 137 ug PO daily 90 April 26, 2025 12:00am Start: 08-19-2024 End: 04-26-2025 take 1 tablet by mouth once daily Levothyroxine 125 mcg tablet Discontinued 125 ug PO DAILY August 19, 2024 12:00am April 26, 2025 2:27pm Start: 06-12-2022 Start: 05-21-2022 End: 06-12-2022 take 1 tablet by mouth once daily Levothyroxine 150 mcg tablet Discontinued 150 ug PO DAILY 23 11May 21, 2022 12:00am June 12, 2022 2:18pm Start: 10-15-2020 End: 08-19-2024 take 1 tablet by mouth once daily Levothyroxine 175 mcg tablet Discontinued 175 ug PO DAILY March 24, 2024 12:00am August 19, 2024 10:45pm Start: 04-05-2018 take 175 ug by mouth once daily Levothyroxine Active 175 MCG PO DAILY April 05, 2018 8:19pm Start: 07-28-2017 SYNTHROID TABS as directed LEVOTHYROXINE SODIUM TABS [id number] Angelika De La Torre LPN Start: 02-22-2015 End: 03-19-2016 take 1 tablet by mouth once daily Levothyroxine 125 MCG tablet Discontinued 125 ug PO DAILY@0600 60 0 February 22, 2015 12:00am March 19, 2016 8:09pm Start: 08-14-2010 End: 07-28-2017 take 1 tablet by mouth once daily LEVOTHYROXINE SODIUM 75 MCG TABS One tablet by mouth daily LEVOTHYROXINE SODIUM [id number] Brenda Arthur MD Comment on above: Take [...] 04/07/2023 Discontinued (Other) take 1 tablet by once as needed loperamide HCl (IMODIUM A-D) 2 mg tab Take 2 mg by mouth as needed. 0 Active Comment on above: Take 2 mg by mouth a s needed. magnesium citrate 58.2 mg/ml oral solution (10 sources) Start: 4 Magnesium Citrate (Citrate Of Magnesia) solution Active 150 mL PO NEEDED as needed for constipation August 19, 2024 12:00am Magnesium Hydroxide (8 sources) Start: 4 take 1 mL by mouth once daily as needed for constipation Magnesium Hydroxide (Dulcolax (Magnesium Hydroxide)) 400 mg/5 mL suspension Active 30 mL PO DAILY as needed for constipation August 19, 2024 12:00am melatonin 3 mg oral tablet (20 sources) Start: take 1 tablet by mouth at bedtime as needed Melatonin 3 mg Tablet Active 3 mg PO AT BEDTIME NEEDED as needed for Insomnia 0 0 November 24, 2023 1:00am Start: 11-24-2023 Start: 11-24-2023 24 hr metoprolol succinate 25 mg extended release oral tablet (20 sources) beta-Adrenergic Jorden Start: 05-21-2022 take 1 tablet by mouth once daily Metoprolol Succinate 25 mg Tablet Extended Release 24 Hr Active 25 mg PO DAILY 30 2 May 21, 2022 12:00am Start: 03-10-2010 End: 07-28-2017 METOPROLOL TARTRATE 25 MG TA BS 1/2 tablet orally twice daily METOPROLOL TARTRATE [id number] Angelika De La Torre LPN nitroglycerin 0.4 [...] 8 HOURS NEEDED as needed for Nausea 10 October 24, 2024 1:00am Start: 03-24-2024 End: 04-02-2024 take 1 tablet by mouth every six hours as needed for nausea and vomiting Ondansetron 4 mg tablet,disintegrating Discontinued 4 mg PO EVERY 6 HOURS as needed for nausea and vomiting 14 March 24, 2024 12:00am April 02, 2024 [...] above: Take 1 tablet by dmitry th twice daily. Take on empty stomach, 1/2 hr before meal. Pen Needle,Diabetic, Disp Unit (20 sources) Start: 06-23-2021 Pen Needle,Diabetic, Disp Unit Active 0 .ROUTE .MEDSUPPLY 100 June 23, 2021 12:34pm As directed Start: 06-23-2021 End: 11-24-2023 Pen Needle,Diabetic, Disp Un it Discontinued 0 .ROUTE .MEDSUPPLY [facility] June 23, 2021 12:00am November 24, 2023 3:13pm As directed Start: 06-23-2021 End: 11-24-2023 Pen Needle,Diabetic, Disp Un it Discontinued 0 .ROUTE .MEDSUPPLY 100 June 22, 2021 11:00pm November 24, 2023 2:13pm As directed Start: 06-23-2021 Pen Needle,Diamond betic, Disp Unit Active 0 .ROUTE .MEDSUPPLY [facility] June 22, 2021 11:00pm As directed Start: 06-23-2021 Pen Needle,Diamond betic, Disp Unit Active 0 .ROUTE .MEDSUPPLY [facility] June 23, 2021 12:00am As directed phenazopyridine hydrochloride 200 mg oral tablet (4 sources) Start: 10-09-2022 take 1 tablet by mouth three times daily Phenazopyridine (Pyridium) 200 mg tablet Active 200 MG PO THREE TIMES A DAY 6 October 09, 2022 12:00am promethazine hydrochloride 25 mg oral tablet (10 sources) Phenothiazine Start: 06-20-2024 take 1 tablet [...] 20, 2021 12:00am September 09, 2022 2:46pm sleep Start: 06-20-2021 End: 09-09-2022 Start: 06-20-2021 End: 09-09-2022 12 hr ranolazine 500 mg extended release oral tablet (20 sources) Anti-anginal Start: 06-12-2022 take 1 tablet by mouth twice daily Ranolazine 500 mg tablet extended release 12 hr Active 500 mg PO TWICE A DAY 60 11 June 12, 2022 12:00am Remove Patch (3 sources) Start: 03-27-2022 apply 1 dose topically once daily Remove Patch Active 1 patch topical DAILY@2200 0 March 27, 2022 3:16pm Start: 03-27-2022 apply 1 dose topically once da molly Remove Patch Active 1 patch topical DAILY@2200 0 March 27, 2022 12:00am rizatriptan 10 mg oral tablet (20 sources) Serotonin-1b and Serotonin-1d Receptor Agonist Start: 12-27-2017 Rizatriptan 10 tablet Active 10 mg PO NEEDED December 27, 2017 1:00am Migraine Symptoms Comment on above: TAKE 1 TABLET BY [...] 12, 2022 2:49pm November 30, 2022 2:09pm mood Start: 03-20-2022 End: 11-30-2022 take 1 tablet by mouth once daily Alprazolam 0.5 mg tablet Discontinued 0.5 mg PO DAILY June 09, 2022 4:15pm [place] 19th, 2022 2:55pm mood End: 08-14-2010 XANAX 0.5 MG TABS 2 tablets once daily as needed for anxiety attacks ALPRAZOLAM [id number] Beth Doyle MA Alum-Mag Hydroxide-Simeth (Mylanta Maximum Strength) 400-400-40 mg/5 mL Suspension (11 sources) Start: 04-24-2022 End: 11-19-2023 take 1 [...] release (DR/EC) Discontinued 81 mg PO DAILY 30 May 21, 2022 12:00am November 19, 2023 11:37am Start: 06-29-2019 aspirin 81 mg chewable tablet DAILY@0800 06/29/2019 Active End: 07-28-2017 take 1 tablet by mouth once daily ASPIRIN LOW DOSE 81 MG TABS one tablet by mouth daily ASPIRIN [id number] Brenda Arthur MD Comment on above: DAILY@0800 azithromycin 250 mg oral tablet (1 source) Macrolide Antimicrobial Start: 017 AZITHROMYCIN 250 MG TABS 2 tablets today, then 1 tablet daily on days 2 through 11 AZITHROMYCIN [id number] Michael M Wyles PA 168 hr buprenorphine 0.02 mg/hr transdermal system (20 sources) Partial Opioid Agonist Start: 024 End: apply 20 ug topically every week Buprenorphine [...] tablet by mouth twice daily BUSPIRONE HCL [id number] Brenda Arthur MD cholecalciferol 0.05 mg chewable tablet (6 sources) Vitamin D Start: 12-26-2019 End: 04-07-2023 take 1 tablet by mouth once daily cholecalciferol, vitamin D3, 2,000 unit chew Take 1 tablet by mouth once daily. 30 tablet 12/26/2019 04/07/2023 Discontinued (Other) Comment on above: Take 1 tablet by [facility] once daily. doxycycline hyclate 100 mg oral capsule (20 sources) Tetracycline-cl ass Drug Start: 12-10-2017 End: 12-20-2017 take 1 capsule by mouth twice daily Doxycycline Hyclate 100 mg capsule Discontinued 100 mg PO TWICE A DAY 20 10 0 December 10, 2017 1:00am December 19, 2017 1:00am December 20, 2017 1:06am Acute sinusitis, unspecified furosemide 20 mg oral tablet (10 sources) Loop Diuretic Start: 06-20-2024 End: 08-19-2024 [...] / neomycin 3.5 mg/ml / polymyxin b 59043 unt/ml otic suspension (20 sources) Aminoglycoside Antibacterial, Polymyxin-class Antibacterial, Corticosteroid Start: 08-14-2017 End: 12-10-2017 [id number] 10 ML drops,suspension Discontinued 4 NMA OT 4 TIMES DAILY 7 0 August 14, 2017 12:00am December 10, 2017 [...] Pen Discontinued 35 U SC DAILY 0 0 March 24, 2022 12:00am June 12, 2022 2:22pm Start: 03-24-2022 End: 06-12-2022 Insulin Glargine-Yfgn 100 [...] SC THREE TIMES DAILY BEFORE MEALS 0 0 January 05, 2024 12:00am April 02, 2024 12:42pm Start: 11-24-2023 End: 01-05-2024 Insulin Lispro (Humalog Kwik pen Insulin) 100 unit/mL Insulin Pen Discontinued 5 U SC WITH BREAKFAST 0 0 November 24, 2023 1:00am January 05, [...] SC THREE TIMES DAILY BEFORE MEALS 0 0 March 24, 2022 12:00am November 05, [...] every meal. Sliding scale. Start: 07-28-2017 HUMALOG SOLN a s directed INSULIN LISPRO SOLN [id number] Angelika De La Torre LPN insulin lispro [...] scale INSULIN ASPART PROT & ASPART SUSP [id number] Beth Doyle MA 3 ml insulin, aspart, human 100 unt/ml pen injector (2 sources) Insulin Analog Start: 03-10-20 End: 07-28-20 17 NOVOLOG FLEXPEN SOLN 12 units SC at breakfast, 10 units SC at lunch, 10 units SC at supper INSULIN ASPART SOLN [id number] Angelika De La Torre LPN levoFLOXacin 750 mg oral tablet (20 sources) Quinolone Antimicrobial Start: 08-16-20 End: 12-10-19 18 take 1 tablet by mouth once daily Levofloxacin 750 MG tablet Discontinued 750 mg PO DAILY 7 0 August 16, 2017 12:00am December 10, 2017 2:37pm lidocaine 0.04 mg/mg medicated patch (20 sources) Antiarrhythmic, Amide Local Anesthetic Start: 04-24-20 End: 11-19-19 Lidocaine 4 % adhesive patch,medicated Discontinued 2 NMA TOPICAL DAILY June 12, 2022 2:19pm November 19, 2023 11:39am Back Pain Start: 03-24-2022 apply 1 dose topical ly [...] TABS One tablet by mouth daily LISINOPRIL [id number] Brenda Arthur MD LORazepam 0.5 mg oral tablet (20 sources) Benzodiazepine Start: 5 End: 5 take 1 tablet by mouth twice daily Lorazepam 0.5 mg tablet Discontinued 0.5 mg PO TWICE A DAY 60 30 0 February 19, 2025 3:38pm March 20, 2025 12:00am March 21, 2025 12:06am anxiety Start: 10-26-2024 End: 12-23-2024 take 1 tablet by mouth twice daily Lorazepam 0.5 mg tablet Discontinued 0.5 mg PO TWICE A DAY 60 30 0 November 23, 2024 4:32pm December 22, 2024 1:00am December 23, 2024 1:23am anxeity Start: 01-29-2023 End: 12-23-2024 take 1 tablet by mouth every twelve hours Lorazepam 0.5 mg tablet Discontinued 0.5 mg PO Q12H January 29, 2023 12:00am October 26, 2024 12:43pm anxeity Start: 11-17-2022 End: 12-30-2022 take 1 tablet by mouth every six hours as needed for anxiety Lorazepam 0.5 mg tablet Discontinued 0.5 mg PO Q12H 60 30 0 November 30, 2022 2:10pm December 29, 2022 1:00am December 30, 2022 1:04am Chronic anxiety Anxiety disorder, unspecified anxiety One tablet every 6 hours as needed for anxiety. Start: 11-17-2022 End: 12-30-2022 Menthol / Zinc Oxide (10 sources) Start: 11-24-2023 End: 01-01-2024 Menthol-Zinc Oxide (Calmosep charmaine) 0.44-20.6 % Ointment Discontinued 1 NMA TOPICAL THREE TIMES A DAY 0 0 November 24, 2023 1:00am January 01, [...] affected ar ea three times daily. nystatin [id number] unt/ml oral suspension (20 sources) Polyene Antifungal Start: 06-20-2024 End: 01-30-2025 take 1 mL by mouth three times daily Nystatin 100,000 unit/mL suspension Discontinued 1 mL PO THREE TIMES A DAY 21 7 1 June 20, 2024 12:00am January 30, 2025 2:09pm swish and swallow Start: 06-20-2024 Start: 04-02-2024 End: 01-30-2025 Nystatin (Nyamyc) 100,000 un it/gram powder Discontinued 1 NMA TOPICAL TWICE A DAY April 02, 2024 12:00am January 30, 2025 2:09pm Start: 04-02-2024 Start: 11-24-2023 End: 01-01-2024 Nystatin (Nyamyc) 100,000 un it/gram Powder Discontinued 1 NMA TOPICAL TWICE A DAY 0 0 November 24, 2023 1:00am January 01, [...] needed for Pain Score 4-10 6 1 0 January 05, 2024 April 02, 2024 12:42pm Pulmonary embolism Other pulmonary embolism without acute cor pulmonale Start: 03-20-2017 End: 12-27-2017 take 1 tablet by mouth every eight hours as needed for pain Oxycodone 5 MG tablet Discontinued 5 mg PO Q8H as needed for Severe Pain (6-10/10) 10 0 March 20, 2017 12:00am December 27, 2017 10:11pm Start: 01-20-2012 take 1 tablet by dmitry th four times daily as needed OXYCODONE HCL 30 MG TABS One tablet by mouth four times daily PRN OXYCODONE HCL [id number] Yaw Cabrera MD polyethylene glycol 3350 13768 mg powder for oral solution (20 sources) Osmotic Laxative Start: 03-27-2022 End: 11-19-2023 take 17 g by mouth once daily as needed for constipation Polyethylene Glycol 3350 17 gram Powder In Packet Discontinued 17 g PO DAILY NEEDED as needed for constipation 0 0 March 27, 2022 12:00am November 19, 2023 11:39am microencapsulated potassium chloride 20 meq extended release oral tablet (20 sources) Start: 11-24-2023 End: 01-30-2025 take 1 [...] tablet Discontinued 1 {tbl} PO DAILY 14 14 0 February 28, 2021 12:00am May 13, 2021 10:50am Start: 02-28-2021 End: 05-13-2021 Start: 02-28-2021 End: 05-13-2021 triamcinolone acetonide 1 mg/ml topical cream (1 source) Corticosteroid Start: 08-14-2010 End: 08-28-2010 TRIAMCINOLONE ACETONIDE 0.1 % CREA affected area twice daily TRIAMCINOLONE ACETONIDE [id number] Brenda Arthur MD CHOLECALCIFEROL CAPS (1 source) Start: 07-28-2017 VITAMIN D CAPS as directed CHOLECALCIFEROL CAPS [id number] Angelika De La Torre LPN Problems Active Problems Problem Classification Problem Date Documented Da te Episodic/Chronic Abdominal hernia (20 sources) Umbilical hernia; Translations: [Umbilical hernia without obstruction or gangrene] Onset: 9 09-04-2019 Episodic Allergic reactions (1 source) Intrinsic (allergic) eczema; Translations: [Intrinsic (allergic) eczema] Onset: 5 Chronic Anxiety disorders (20 sources) Panic attack; Translations: [Chronic anxiety] Onset: 0 03-10-2010 Chronic Blindness and vision defects (1 source) Eye / vision finding; Translations: [Unspecified visual disturbance] Episodic Calculus of urinary tract (20 sources) H/O: urinary stone; Translations: [Personal history of urinary calculi] Onset: 8 03-05-2009 Episodic Comment on above: present with left fl ank pain from 5mm stone in left kidney Chronic kidney disease (20 sources) Chronic kidney [...] Coronary atherosclerosis; Translations: [Atherosclerotic heart disease of [place] coronary artery without angina pectoris] Onset: 5 [...] 0 08-14-2010 Chronic Comment on above: denies Fluid and electrolyte disorders (20 sources) Acute hyponatremia; Translations: [Hypo-osmolality and hyponatremia] Onset: 9 09-18-2019 Episodic Gastroduodenal ulcer (except hemorrhage) (20 sources) Gastric ulcer; Translations: [Gastric ulcer, unspecified as acute or chronic, without hemorrhage or perforation] Onset: 4 02-27-2016 Chronic Genitourinary symptoms and ill-defined conditions (20 sources) Blood in urine; Translations: [Hematuria, unspecified] Onset: 7 01-22-2017 Episodic Comment on above: hematuria probably f rom stone Headache; including migraine (20 sources) Migraine; Translations: [Migraine, unspecified, not intractable, without status migrainosus] 04-08-2019 Chronic Headache; including migraine (10 sources) Headache; Translations: [Headache] 04-01-2024 Episodic Immunizations and screening for infectious disease (4 sources) Patient encounter status; Translations: [Encounter for immunization] Episodic Intestinal obstruction without hernia (20 sources) Fecal impaction; Translations: [Fecal impaction of rectum] 03-28-2023 Episodic Malaise and fatigue (1 source) Asthenia; Translations: [Weakness] Episodic Nonspecific chest pain (20 sources) Atypical chest pain; Translations: [Chest pain] Onset: 0 Resolved: 0 08-14-2010 Episodic Nutritional deficiencies (20 sources) Vitamin D deficiency; Translations: [Vitamin D deficiency, unspecified] Onset: 0 12-26-2019 Chronic Other aftercare (15 sources) Long-term current use of anticoagulant; Translations: [USP (current) use of anticoagulants] 01-20-2024 Episodic Other circulatory disease (20 sources) Orthostatic hypotension; Translations: [Orthostatic hypotension] 06-09-2022 Episodic Other circulatory disease (2 sources) Feeling of lump in throat; Translations: [Other specified symptoms and signs involving the circulatory and respiratory systems] Episodic Other connective tissue disease (20 sources) Pain in lower limb; Translations: [Pain [...] Onset: 8 09-15-2017 Chronic Other endocrine disorders (10 sources) Hypoglycemia; Translations: [Hypoglycemia, unspecified] 04-10-2024 Chronic Other gastrointestinal disorders (20 sources) Constipation; Translations: [Constipation, unspecified] Onset: 5 Resolved: 5 03-28-2023 Episodic Other gastrointestinal disorders (1 source) Acute constipation; Translations: [Constipation, unspecified] Episodic Other gastrointestinal disorders (20 sources) Diarrhea; Translations: [Diarrhea, unspecified] 11-19-2023 Episodic [...] classified] 06-09-2022 Chronic Other nervous system disorders (20 sources) Chronic pain; Translations: [Other chronic pain] [...] (17 sources) Localized edema; Translations: [Edema] Episodic Residual codes; unclassified (1 source) Edema, unspecified; Translations: [Edema, unspecified] Onset: 5 Episodic Skin and subcutaneous tissue infections (20 [...] emboli without acute cor pulmonale] Onset: 4 Viral infection (7 sources) Acute herpes zoster neuropathy; Translations: [Zoster without complications] 04-18-2025 Episodic Past or Other Problems Problem Classification Problem Date Documented Da te Episodic/Chronic Abdominal pain (20 sources) Left flank pain; Translations: [Unspecified abdominal pain] Onset: 4 Resolved: 5 11-02-2018 Episodic Acute and unspecified renal failure (20 sources) Injury of kidney; Translations: [Acute kidney failure, unspecified] Onset: 9 11-21-2018 Episodic Allergic reactions (20 sources) Eczema; Translations: [Dermatitis, unspecified] Onset: 0 12-26-2019 Episodic Cardiac dysrhythmias (20 sources) Palpitations; Translations: [Palpitations] Onset: 5 02-11-2023 Episodic Chronic obstructive pulmonary disease and bronchiectasis (1 source) Bronchitis; Translations: [Bronchitis, not specified as acute or chronic] Onset: 7 07-28-2017 Episodic Deficiency and other anemia (12 sources) Anemia; Translations: [Anemia, unspecified] Onset: 5 Resolved: 6 02-27-2016 Episodic Intestinal infection (2 sources) Infectious gastroenteritis [...] leg] Onset: 4 Episodic Other gastrointestinal disorders (13 sources) Diarrhea, [...] Name Value Interpretation Reference Range Facility Absolute lymphocyte countOrd ered By: Lizet Linares on 05-07-2025 Lymphocytes Auto (Unsp spec) [#/Vol] 2.01 10*3/uL 0.83-4.51 [facility] Absolute neutrophil countOrd ered By: Lizet Linares on 05-07-2025 Neutrophils (Bld) [#/Vol] 3.3 10*3/uL 2.0-7.7 [facility] Anion gap in Serum or Plasma Ordered By: Lizet Linares on 05-07-2025 Anion gap [Moles/Vol] 12 mmol/L 03-08 [facility] Automated lymphocyte count a s percentage of total leukocytesOrdered By: Lizet Linares on 05-07-2025 Lymphocytes/100 WBC Auto (Unsp spec) 34.1 % 19-41 [facility] BUN/creatinine ratioOrdered By: Lizet Linares on 05-07-2025 Urea nitrogen/Creatinine [Mass ratio] 17.0 mg/mg 10-20 [facility] Basophil percentageOrdered B y: Lizet Linares on 05-07-2025 Basophils/100 WBC (Bld) 0.5 % 0-1 [facility] Carbon dioxide, total [Moles /volume] in Central venous bloodOrdered By: Lizet Linares on 05-07-2025 CO2 [Moles/Vol] 23.8 mmol/L 21.0-32.0 [facility] Chloride assayOrdered By: Junie Linares on 05-07-2025 Chloride [Moles/Vol] 99 mmol/L 98-108 [facility] Eosinophil percentageOrdered By: Lizet Linares on 05-07-2025 Eosinophils/100 WBC (Bld) 2.2 % 0-5 [facility] Erythrocyte distribution wid th ratioOrdered By: Lizet Linares on 05-07-2025 Erythrocyte distribution width (RBC) [Ratio] 15.2 % High 11.6-14.6 [facility] Erythrocyte distribution wid th standard deviationOrdered By: Lizet Linares on 05-07-2025 Erythrocyte distribution width (RBC) [Ratio] 50.5 fl High 35.1-43.9 [facility] Glomerular filtration rate ( GFR) estimation/1.73 sq m using serum, plasma, or whole bOrdered By: Lizet Linares on 05-07-2025 GFR/1.73 sq M.predicted among non-blacks MDRD (S/P/Bld) [Vol rate/Area] 37 mL/min/{1.73_m2} Low >60 [facility] Comment on above: mL/min/1.73m2 CKD-EP I Creatinine Equation (2020) Hematocrit Auto (Bld) [Volum e fraction]Ordered By: Lizet Linares on 05-07-2025 Hematocrit (Bld) [Volume fraction] 34.0 % Low 37-47 [facility] Hemoglobin measurementOrdere d By: Lizet Linares on 05-07-2025 Hemoglobin (Bld) [Mass/Vol] 10.4 g/dL Low 12.0-15.0 [facility] Immature granulocytes/100 WB C Auto (Bld)Ordered By: Lizet Linares on 05-07-2025 Immature granulocytes/100 WBC (Bld) 0.500 % 0.0-0.9 [facility] Comment on above: IG% - Immature Granu locytes (promyelocytes, myelocytes and metamyelocytes) > 1% indicates that a LEFT SHIFT is Present. MCV (mean corpuscular volume ) determinationOrdered By: Lizet Linares on 05-07-2025 MCV (RBC) [Entitic vol] 92.1 fL 81-99 [facility] Mean corpuscular hemoglobin (MCH) determinationOrdered By: Lizet Linares on 05-07-2025 MCH (RBC) [Entitic mass] 28.2 pg 27.0-32.0 [facility] Mean corpuscular hemoglobin concentration (MCHC) determinationOrdered By: Lizet Linares on 05-07-2025 MCHC (RBC) [Mass/Vol] 30.6 g/dL Low 32-36 [facility] Mean platelet volume determi nationOrdered By: Lizet Linares on 05-07-2025 Platelet mean volume (Bld) [Entitic vol] 10.0 fL 6.2-12.0 [facility] Monocyte percentageOrdered B y: Lizet Linares on 05-07-2025 Monocytes/100 WBC (Bld) 7.3 % 0-10 [facility] Neutrophil percentageOrdered By: Lizet Linares on 05-07-2025 Neutrophils/100 WBC (Bld) 55.4 % 47-70 [facility] Nucleated red blood cell per centageOrdered By: Lizet Linares on 05-07-2025 Nucleated RBC/100 WBC (Bld) [Ratio] 0 % 0-5 [facility] Platelet countOrdered By: Junie Linares on 05-07-2025 Platelets (Bld) [#/Vol] 338 10*3/uL 150-450 [facility] Potassium measurement (mass/ volume)Ordered By: Lizet Linares on 05-07-2025 Potassium (Unsp spec) [Mass/Vol] 4.2 mmol/L 3.3-5.1 [facility] RBC Auto (Bld) [#/Vol]Ordere d By: Lizet Linares on 05-07-2025 RBC (Bld) [#/Vol] 3.69 10*6/uL Low 4.2-5.[address] [facility] Serum creatinine measurement (mass/volume)Ordered By: Lizet Linares on 05-07-2025 Creatinine [Mass/Vol] 1.58 mg/dL High 0.70-1.20 [facility] Serum glucose measurement (m ass/volume)Ordered By: Lizet Linares on 05-07-2025 Glucose [Mass/Vol] 232 mg/dL High 70-99 [facility] Serum or plasma calcium tai urement (mass/volume)Ordered By: Lizet Linares on 05-07-2025 Calcium [Mass/Vol] 8.9 mg/dL 7.6-11.0 [facility] Serum or plasma urea nitroge n measurement (mass/volume)Ordered By: Lizet Linares on 05-07-2025 Urea nitrogen [Mass/Vol] 27 mg/dL High 4-19 [facility] Sodium levelOrdered By: Holly Linares on 05-07-2025 Sodium [Moles/Vol] 134 mmol/L 133-145 [facility] White blood cell (WBC) count Ordered By: Lizet Linares on 05-07-2025 WBC (Bld) [#/Vol] 5.9 10*3/uL 4.4-11.0 [facility] Anion gap in Serum or Plasma Ordered By: Lizet Linares on 04-25-2025 Anion gap [Moles/Vol] 12 mmol/L 5-15 [facility] BUN/creatinine ratioOrdered By: Lizet Linares on 04-25-2025 Urea nitrogen/Creatinine [Mass ratio] 21.3 mg/mg High 10-20 [facility] Carbon dioxide, total [Moles /volume] in Central venous bloodOrdered By: Lizet Linares on 04-25-2025 CO2 [Moles/Vol] 23.8 mmol/L 21.0-32.0 [facility] Chloride assayOrdered By: Junie Linares on 04-25-2025 Chloride [Moles/Vol] 100 mmol/L 98-108 [facility] Glomerular filtration rate ( GFR) estimation/1.73 sq m using serum, plasma, or whole bOrdered By: Lizet Linares on 04-25-2025 GFR/1.73 sq M.predicted among non-blacks MDRD (S/P/Bld) [Vol rate/Area] 44 mL/min/{1.73_m2} Low >60 [facility] Comment on above: mL/min/1.73m2 CKD-EP I Creatinine Equation (2020) Natriuretic peptide.B prohor ivory N-Terminal [Mass/volume] in Serum or PlasmaOrdered By: Lizet Linares on 04-25-2025 Natriuretic peptide.B prohormone N-Terminal [Mass/Vol] 220 pg/mL <900 [facility] Comment on above: Heart Failure Unlike ly: < 300 pg/mLHeart Failure Likely< 50 Years: > 450 pg/mL50-75 Years: > 900 pg/mL>75 Years: > 1800 pg/mL Potassium measurement (mass/ volume)Ordered By: Lizet Linares on 04-25-2025 Potassium (Unsp spec) [Mass/Vol] 4.4 mmol/L 3.3-5.1 [facility] Serum creatinine measurement (mass/volume)Ordered By: Lizet Linares on 04-25-2025 Creatinine [Mass/Vol] 1.38 mg/dL High 0.70-1.20 [facility] Serum glucose measurement (m ass/volume)Ordered By: Lizet Linares on 04-25-2025 Glucose [Mass/Vol] 217 mg/dL High 70-99 [facility] Serum or plasma calcium tai urement (mass/volume)Ordered By: Lizet Linares on 04-25-2025 Calcium [Mass/Vol] 9.2 mg/dL 7.6-11.0 [facility] Serum or plasma urea nitroge n measurement (mass/volume)Ordered By: Lizet Linares on 04-25-2025 Urea nitrogen [Mass/Vol] 29 mg/dL High - [facility] Sodium levelOrdered By: Holly lrtia Milagros on 04-25-2025 Sodium [Moles/Vol] 135 mmol/L 133-145 [facility] TSH DL <= 0.005 mIU/L QnOrde red By: Lizet Linares on 04-25-2025 TSH Qn 24.000 uIU/mL High 0.300-4.20 0 [facility] Gram stainOrdered By: Shadia Linares on 04-12-2025 Microscopic observation Gram stain Nom (Unsp spec) [facility] Routine wound cultureOrdered By: Lizet Linares on 04-12-2025 Microbial culture, routine Meth. resistant Staph. aureus Abnormal [facility] Hemoglobin A1c percentageOrd ered By: Lizet Linares on 04-06-2025 HbA1c (Bld) [Mass fraction] 10.5 % High <5.7 [facility] Comment on above: Normal < 5.7 % Predi abetic 5.7 - 6.4 % Diabetic >or= 6.5 % Please note range changes. Hemoglobin A1c percentageOrd ered By: Lizet Linares on 03-29-2025 HbA1c (Bld) [Mass fraction] 10.8 % High <5.7 [facility] Comment on above: Normal < 5.7 % Predi abetic 5.7 - 6.4 % Diabetic >or= 6.5 % Please note range changes. TSH DL <= 0.005 mIU/L QnOrde red By: Lizet Linares on 03-29-2025 TSH Qn 5.840 uIU/mL High 0.300-4.20 0 [facility] Anion gap in Serum or Plasma Ordered By: Lizet Linares on 03-12-2025 Anion gap [Moles/Vol] 12 mmol/L 5-15 [facility] BUN/creatinine ratioOrdered By: Lizet Linares on 03-12-2025 Urea nitrogen/Creatinine [Mass ratio] 24.9 mg/mg High 10-20 [facility] Carbon dioxide, total [Moles /volume] in Central venous bloodOrdered By: Lizet Linares on 03-12-2025 CO2 [Moles/Vol] 23.0 mmol/L 21.0-32.0 [facility] Chloride assayOrdered By: Junie Linares on 03-12-2025 Chloride [Moles/Vol] 97 mmol/L Low 98-108 [facility] Glomerular filtration rate ( GFR) estimation/1.73 sq m using serum, plasma, or whole bOrdered By: Lizet Linares on 03-12-2025 GFR/1.73 sq M.predicted among non-blacks MDRD (S/P/Bld) [Vol rate/Area] 35 mL/min/{1.73_m2} Low >60 [facility] Comment on above: mL/min/1.73m2 CKD-EP I Creatinine Equation (2020) Potassium measurement (mass/ volume)Ordered By: Lizet Linares on 03-12-2025 Potassium (Unsp spec) [Mass/Vol] 4.3 mmol/L 3.3-5.1 [facility] Serum creatinine measurement (mass/volume)Ordered By: Lizet Linares on 03-12-2025 Creatinine [Mass/Vol] 1.64 mg/dL High 0.70-1.20 [facility] Serum glucose measurement (m ass/volume)Ordered By: Lizet Linares on 03-12-2025 Glucose [Mass/Vol] 428 mg/dL High 70-99 [facility] Serum or plasma calcium tai urement (mass/volume)Ordered By: Lizet Linares on 03-12-2025 Calcium [Mass/Vol] 8.6 mg/dL 7.6-11.0 [facility] Serum or plasma urea nitroge n measurement (mass/volume)Ordered By: Lizet Linares on 03-12-2025 Urea nitrogen [Mass/Vol] 41 mg/dL High 4-19 [facility] Sodium levelOrdered By: Holly Linares on 03-12-2025 Sodium [Moles/Vol] 132 mmol/L Low 133-145 [facility] Bilirubin directOrdered By: Ana Maria Geller on 03-05-2025 Bilirubin.direct [Mass/Vol] 0.12 mg/dL 0.00-0.30 [facility] Bilirubin, totalOrdered By: Ana Maria Geller on 03-05-2025 Bilirubin [Mass/Vol] 0.19 mg/dL 0.00-1.30 [facility] Laboratory - Chemistry and C hemistry - challengeOrdered By: Ana Maria Geller on 03-05-2025 AST [Catalytic activity/Vol] 23 U/L <32 [facility] Serum globulin measurementOr dered By: Ana Maria Geller on 03-05-2025 Globulin (S) [Mass/Vol] 2.7 g/dL 2.2-4.2 [facility] Serum or plasma alanine russo otransferase (ALT) measurementOrdered By: Ana Maria Geller on 03-05-2025 ALT [Catalytic activity/Vol] 24 U/L <35 [facility] Serum or plasma albumin tai urement (mass/volume)Ordered By: Ana Maria Geller on 03-05-2025 Albumin [Mass/Vol] 3.4 g/dL 3.4-4.8 [facility] Serum or plasma alkaline shante sphatase measurementOrdered By: Ana Maria Geller on 03-05-2025 ALP [Catalytic activity/Vol] 51 U/L 35-104 [facility] Total proteinOrdered By: Porter Geller on 03-05-2025 Protein [Mass/Vol] 6.1 g/dL 5.9-8.4 [facility] Absolute lymphocyte countOrd ered By: Zack Choi on 01-22-2025 Lymphocytes Auto (Unsp spec) [#/Vol] 2.95 10*3/uL 0.83-4.51 [facility] Absolute neutrophil countOrd ered By: Zack Choi on 01-22-2025 Neutrophils (Bld) [#/Vol] 4.6 10*3/uL 2.0-7.7 [facility] Absolute neutrophil count 4.6 X10^3/uL 2.0-7.7 [facility] Anion gap [Moles/Vol]Ordered By: Zack Choi on 01-22-2025 Anion gap in Serum or Plasma 12 5- [facility] Anion gap in Serum or Plasma Ordered By: Zack Choi on 01-22-2025 Anion gap [Moles/Vol] 12 mmol/L 5-15 [facility] Automated lymphocyte count a s percentage of total leukocytesOrdered By: Zack Choi on 01-22-2025 Lymphocytes/100 WBC Auto (Unsp spec) 35.8 % 19-41 [facility] BUN/creatinine ratioOrdered By: Zack Choi on 01-22-2025 Urea nitrogen/Creatinine [Mass ratio] 24.2 mg/mg High 10-20 [facility] BUN/creatinine ratio 24.2 RATIO High 10-20 [facility] Basophil percentageOrdered B y: Zack Choi on 01-22-2025 Basophils/100 WBC (Bld) 0.6 % 0-1 [facility] Basophil percentage 0.6 % 0-[address] [facility] Calcium [Mass/Vol]Ordered By : Zack Choi on 01-22-2025 Serum or plasma calcium measurement (mass/volume) 9.4 mg/dL 7.6-11.0 [facility] Carbon dioxide, total [Moles /volume] in Central venous bloodOrdered By: Zack Choi on 01-22-2025 CO2 [Moles/Vol] 22.3 mmol/L 21.0-32.0 [facility] Carbon dioxide, total [Moles/volume] in Central venous blood 22.3 mmol/L 21.0-32.0 [facility] Chloride assayOrdered By: Albert Choi on 01-22-2025 Chloride [Moles/Vol] 98 mmol/L 98-108 [facility] Chloride assay 98 mmol/L 98-108 [facility] Creatinine [Mass/Vol]Ordered By: Zack Choi on 01-22-2025 Serum creatinine measurement (mass/volume) 1.37 mg/dL High 0.70-1.20 [facility] Eosinophil percentageOrdered By: Zack Choi on 01-22-2025 Eosinophils/100 WBC (Bld) 1.0 % 0-5 [facility] Eosinophil percentage 1.0 % 0-5 [facility] Erythrocyte distribution wid th (RBC) [Ratio]Ordered By: Zack Choi on 01-22-2025 Erythrocyte distribution width ratio 14.1 % 11.6-14.6 [facility] Erythrocyte distribution wid th ratioOrdered By: Zack Choi on 01-22-2025 Erythrocyte distribution width (RBC) [Ratio] 14.1 % 11.6-14.6 [facility] Erythrocyte distribution wid th standard deviationOrdered By: Zack Choi on 01-22-2025 Erythrocyte distribution width (RBC) [Ratio] 44.8 fl High 35.1-43.9 [facility] Erythrocyte distribution width standard deviation 44.8 fl High 35.1-43.9 [facility] Estimation of creatinine jacqui aranceOrdered By: Zack Choi on 01-22-2025 Estimation of creatinine clearance 43.47 ml/min Low 50-250 [facility] GFR/1.73 sq M.predicted adama g non-blacks MDRD (S/P/Bld) [Vol rate/Area]Ordered By: Zack Choi on 01-22-2025 Glomerular filtration rate (GFR) estimation/1.73 sq m using serum, plasma, or whole b 44 Low >60 [facility] Glomerular filtration rate ( GFR) estimation/1.73 sq m using serum, plasma, or whole bOrdered By: Zack Choi on 01-22-2025 GFR/1.73 sq M.predicted among non-blacks MDRD (S/P/Bld) [Vol rate/Area] 44 mL/min/{1.73_m2} Low >60 [facility] Comment on above: mL/min/1.73m2 CKD-EP I Creatinine Equation (2020) Glucose [Mass/Vol]Ordered By : Zack Choi on 01-22-2025 Serum glucose measurement (mass/volume) 245 mg/dL High 70-99 [facility] Hematocrit Auto (Bld) [Volum e fraction]Ordered By: Zack Choi on 01-22-2025 Hematocrit (Bld) [Volume fraction] 37.0 % 37-47 [facility] Automated blood hematocrit (percentage) 37.0 % 37-47 [facility] Hemoglobin measurementOrdere d By: Zack Choi on 01-22-2025 Hemoglobin (Bld) [Mass/Vol] 12.1 g/dL 12.0-15.0 [facility] Hemoglobin measurement 12.1 g/dL 12.0-15.0 [facility] Immature granulocytes/100 WB C Auto (Bld)Ordered By: Zack Choi on 01-22-2025 Immature granulocytes/100 WBC (Bld) 1.000 % High 0.0-0.9 [facility] Comment on above: IG% - Immature Granu locytes (promyelocytes, myelocytes and metamyelocytes) > 1% indicates that a LEFT SHIFT is Present. Automated immature granulocyte percentage 1.000 % High 0.0-0.9 [facility] Lymphocytes Auto (Unsp spec) [#/Vol]Ordered By: Zack Choi on 01-22-2025 Absolute lymphocyte count 2.95 X10^3/uL 0.83-4. 51 [facility] Lymphocytes/100 WBC Auto (Un sp spec)Ordered By: Zack Choi on 01-22-2025 Automated lymphocyte count as percentage of total leukocytes 35.8 % 19-41 [facility] MCV (RBC) [Entitic vol]Order ed By: Zack Choi on 01-22-2025 MCV (mean corpuscular volume) determination 87.5 fL 81-99 [facility] MCV (mean corpuscular volume ) determinationOrdered By: Zack Choi on 01-22-2025 MCV (RBC) [Entitic vol] 87.5 fL 81-99 [facility] Mean corpuscular hemoglobin (MCH) determinationOrdered By: Zack Choi on 01-22-2025 MCH (RBC) [Entitic mass] 28.6 pg 27.0-32.0 [facility] Mean corpuscular hemoglobin (MCH) determination 28.6 pg 27.0-32.0 [facility] Mean corpuscular hemoglobin concentration (MCHC) determinationOrdered By: Zack Choi on 01-22-2025 MCHC (RBC) [Mass/Vol] 32.7 g/dL 32-36 [facility] Mean corpuscular hemoglobin concentration (MCHC) determination 32.7 g/dL 32-36 [facility] Mean platelet volume determi nationOrdered By: Zack Choi on 01-22-2025 Platelet mean volume (Bld) [Entitic vol] 9.6 fL 6.2-12.0 [facility] Mean platelet volume determination 9.6 fl 6.2-12.0 [facility] Monocyte percentageOrdered B y: Zack Choi on 01-22-2025 Monocytes/100 WBC (Bld) 5.6 % 0-10 [facility] Monocyte percentage 5.6 % 0-[address] [facility] Neutrophil percentageOrdered By: Zack Choi on 01-22-2025 Neutrophils/100 WBC (Bld) 56.0 % 47-70 [facility] Neutrophil percentage 56.0 % 47-70 [facility] No Panel InformationOrdered By: Zack Choi on 01-22-2025 Troponin T High Sensitivity 54 ng/L High <14 [facility] Comment on above: Critical Result(s) C alled at 1135: by: JUANA GARDNER TO SANDY. Results read back by same. 54 ng/L High <14 [facility] Nucleated red blood cell per centageOrdered By: Zack Choi on 01-22-2025 Nucleated RBC/100 WBC (Bld) [Ratio] 0 % 0-5 [facility] Nucleated red blood cell percentage 0 % 0-5 [facility] Platelet countOrdered By: Albert Choi on 01-22-2025 Platelets (Bld) [#/Vol] 341 10*3/uL 150-450 [facility] Platelet count 341 K/mm3 150-450 [facility] Potassium (Unsp spec) [Mass/ Vol]Ordered By: Zack Choi on 01-22-2025 Potassium measurement (mass/volume) 4.4 mmol/L 3.3-5.1 [facility] Potassium measurement (mass/ volume)Ordered By: Zack Choi on 01-22-2025 Potassium (Unsp spec) [Mass/Vol] 4.4 mmol/L 3.3-5.1 [facility] RBC Auto (Bld) [#/Vol]Ordere d By: Zack Choi on 01-22-2025 RBC (Bld) [#/Vol] 4.23 10*6/uL 4.2-5.[address] [facility] Automated blood erythrocyte count 4.23 M/mm3 4.2-5.4 [facility] Serum creatinine measurement (mass/volume)Ordered By: Zack Choi on 01-22-2025 Creatinine [Mass/Vol] 1.37 mg/dL High 0.70-1.20 [facility] Serum glucose measurement (m ass/volume)Ordered By: Zack Choi on 01-22-2025 Glucose [Mass/Vol] 245 mg/dL High 70-99 [facility] Serum or plasma calcium tai urement (mass/volume)Ordered By: Zack Choi on 01-22-2025 Calcium [Mass/Vol] 9.4 mg/dL 7.6-11.0 [facility] Serum or plasma urea nitroge n measurement (mass/volume)Ordered By: Zack Choi on 01-22-2025 Urea nitrogen [Mass/Vol] 33 mg/dL High 02-10 [facility] Sodium levelOrdered By: Sherman Choi on 01-22-2025 Sodium [Moles/Vol] 133 mmol/L 133-145 [facility] Sodium level 133 mmol/L 133-145 [facility] Troponin T.cardiac High sens itivity method [Mass/Vol]Ordered By: Zack Choi on 01-22-2025 Troponin T.cardiac [Mass/volume] in Serum or Plasma by High sensitivity method 48 ng/L High <14 [facility] Troponin T.cardiac [Mass/vol ume] in Serum or Plasma by High sensitivity methodOrdered By: Zack Choi on 01-22-2025 Troponin T.cardiac High sensitivity method [Mass/Vol] 48 ng/L High <14 [facility] Urea nitrogen [Mass/Vol]Orde red By: Zack Choi on 01-22-2025 Serum or plasma urea nitrogen measurement (mass/volume) 33 mg/dL High 02-10 [facility] White blood cell (WBC) count Ordered By: Zack Choi on 01-22-2025 WBC (Bld) [#/Vol] 8.2 10*3/uL 4.4-11.0 [facility] White blood cell (WBC) count 8.2 K/mm3 4.4-11.0 [facility] HbA1c (Bld) [Mass fraction]O rdered By: Lizet Linares on 01-05-2025 Hemoglobin A1c percentage 10.2 % >5.7 [facility] Hemoglobin A1c percentageOrd ered By: Lizet Linares on 01-05-2025 HbA1c (Bld) [Mass fraction] 10.2 % >5.7 [facility] Creatinine (U) [Mass/Vol]Ord ered By: Lizet Linares on 12-07-2024 Urine creatinine measurement (mass/volume) 38.20 mg/dL NO RANGE EST. [facility] Random urine microalbumin me asurementOrdered By: iLzet Linares on 12-07-2024 Random urine microalbumin measurement 9.2 mg/L NO RANGE EST. [facility] Urine albumin/creatinine rat io for detection of microalbuminuriaOrdered By: Lizet Linares on 12-07-2024 Urine albumin/creatinine ratio for detection of microalbuminuria 24.0 mg/g CRE <30 [facility] Urine creatinine measurement (mass/volume)Ordered By: Lizet Linares on 12-07-2024 Creatinine (U) [Mass/Vol] 38.20 mg/dL NO RANGE EST. [facility] Cholesterol [Mass/Vol]Ordere d By: Lizet Linares on 11-30-2024 Serum or plasma cholesterol measurement (mass/volume) 91 mg/dL <200 [facility] High density lipoprotein (HD L) measurementOrdered By: Lizet Linares on 11-30-2024 Cholesterol in HDL [Mass/Vol] 29 mg/dL Low >40 [facility] Comment on above: The drugs N-Acetylcy steine and Metamizole may falsely depress this assay. Reference Range HDL <40 mg/dL Low HDL Cholesterol HDL >or= 60 mg/dL High HDL Cholesterol High density lipoprotein (HDL) measurement 29 mg/dL Low >40 [facility] Low density lipoprotein (LDL ) cholesterol measurementOrdered By: Lizet Linares on 11-30-2024 Cholesterol in LDL [Mass/Vol] 24 mg/dL 0-130 [facility] Low density lipoprotein (LDL) cholesterol measurement 24 mg/dL 0-130 [facility] Serum or plasma cholesterol measurement (mass/volume)Ordered By: Lizet Linares on 11-30-2024 Cholesterol [Mass/Vol] 91 mg/dL <200 [facility] Comment on above: <200 mg/dL Desirable 200-240 mg/dL Borderline >240 mg/dL High Risk Serum or plasma thyroid stim ulating hormone (TSH) measurement (units/volume)Ordered By: Lizet Linares on 11-30-2024 TSH Qn 2.550 uIU/mL 0.358-3.74 0 [facility] TSH QnOrdered By: Lizet Linares on 11-30-2024 Serum or plasma thyroid stimulating hormone (TSH) measurement (units/volume) 2.550 uIU/mL 0.358-3.74 0 [facility] Triglycerides measurementOrd ered By: Lizet Linares on 11-30-2024 Triglyceride [Mass/Vol] 191 mg/dL <199 [facility] Comment on above: The drugs N-Acetylcy steine and Metamizole may falsely depress this assay.Serum Triglycerides Reference Interval Normal <150 mg/dL Borderline high 150 - 199 mg/dL High 200 - 499 mg/dL Very High > or = 500 mg/dL Triglycerides measurement 191 mg/dL <199 [facility] Very low density lipoprotein (VLDL) cholesterol measurementOrdered By: Lizet Linares on 11-30-2024 Very low density lipoprotein (VLDL) cholesterol measurement 38 mg/dL 5-40 [facility] Very low density lipoprotein (VLDL) cholesterol measurement 38 mg/dL 5-40 [facility] Absolute neutrophil countOrd ered By: Lizet Linares on 11-24-2024 Absolute neutrophil count 4.1 X10^3/uL 2.0-7.7 [facility] Basophil percentageOrdered B y: Lizet Linares on 11-24-2024 Basophil percentage 0.6 % 0-[address] [facility] Blood urea nitrogen (BUN)/cr eatinine ratioOrdered By: Lizet Linares on 11-24-2024 Blood urea nitrogen (BUN)/creatinine ratio 22.2 RATIO High 10-20 [facility] Calcium [Mass/Vol]Ordered By : Lizet Linares on 11-24-2024 Serum or plasma calcium measurement (mass/volume) 9.2 mg/dL 8.5-10.1 [facility] Carbon dioxide measurementOr dered By: Lizet Linares on 11-24-2024 Carbon dioxide measurement 27.0 mmol/L 21.0-32.0 [facility] Chloride measurementOrdered By: Lizet Linares on 11-24-2024 Chloride measurement 98 mmol/L 98-107 [facility] Creatinine [Mass/Vol]Ordered By: Lizet Linares on 11-24-2024 Serum or plasma creatinine measurement (mass/volume) 1.53 mg/dL High 0.55-1.02 [facility] Eosinophil percentageOrdered By: Lizet Linares on 11-24-2024 Eosinophil percentage 1.5 % 0-5 [facility] Erythrocyte distribution wid th (RBC) [Ratio]Ordered By: Lizet Linares on 11-24-2024 Erythrocyte distribution width ratio 13.9 % 11.6-14.6 [facility] Erythrocyte distribution wid th standard deviationOrdered By: Lizet Linares on 11-24-2024 Erythrocyte distribution width standard deviation 45.1 fl High 35.1-43.9 [facility] Estimated glomerular filtrat ion rate (GFR) AmericanOrdered By: Lizet Linares on 11-24-2024 Estimated glomerular filtration rate (GFR) 44 mL/min Low >60 [facility] Glomerular filtration rate ( GFR) estimationOrdered By: Lizet Linares on 11-24-2024 Glomerular filtration rate (GFR) estimation 37 mL/min Low >60 [facility] Glucose measurementOrdered B y: Lizet Linares on 11-24-2024 Glucose measurement 402 mg/dL High 74-[address] [facility] Hematocrit Auto (Bld) [Volum e fraction]Ordered By: Lizet Linares on 11-24-2024 Automated blood hematocrit (percentage) 32.9 % Low 37-47 [facility] Hemoglobin measurementOrdere d By: Lizet Linares on 11-24-2024 Hemoglobin measurement 10.2 g/dL Low 12.0-15.0 [facility] Immature granulocytes/100 WB C Auto (Bld)Ordered By: Lizet Linares on 11-24-2024 Automated immature granulocyte percentage 0.600 % 0.0-0.9 [facility] Lymphocytes Auto (Unsp spec) [#/Vol]Ordered By: Lizet Linares on 11-24-2024 Absolute lymphocyte count 2.20 X10^3/uL 0.83-4. 51 [facility] Lymphocytes/100 WBC Auto (Un sp spec)Ordered By: Lizet Linares on 11-24-2024 Automated lymphocyte count as percentage of total leukocytes 32.2 % 19-41 [facility] MCV (RBC) [Entitic vol]Order ed By: Lizet Linares on 11-24-2024 MCV (mean corpuscular volume) determination 89.2 fL 81-99 [facility] Mean corpuscular hemoglobin (MCH) determinationOrdered By: Lizet Linares on 11-24-2024 Mean corpuscular hemoglobin (MCH) determination 27.6 pg 27.0-32.0 [facility] Mean corpuscular hemoglobin concentration (MCHC) determinationOrdered By: Lizet Linares on 11-24-2024 Mean corpuscular hemoglobin concentration (MCHC) determination 31.0 g/dL Low 32-36 [facility] Mean platelet volume determi nationOrdered By: Lizet Linares on 11-24-2024 Mean platelet volume determination 9.3 fl 6.2-12.0 [facility] Monocyte percentageOrdered B y: Lizet Linares on 11-24-2024 Monocyte percentage 5.1 % 0-[address] [facility] Neutrophil percentageOrdered By: Lizet Linares on 11-24-2024 Neutrophil percentage 60.0 % 47-70 [facility] Nucleated red blood cell per centageOrdered By: Lizet Linares on 11-24-2024 Nucleated red blood cell percentage 0 % 0-5 [facility] Platelet countOrdered By: Junie Linares on 11-24-2024 Platelet count 311 K/mm3 150-450 [facility] Potassium measurementOrdered By: Lizet Linares on 11-24-2024 Potassium measurement 4.7 mmol/L 3.5-5.1 [facility] RBC Auto (Bld) [#/Vol]Ordere d By: Lizet Linares on 11-24-2024 Automated blood erythrocyte count 3.69 M/mm3 Low 4.2-5.4 [facility] Serum anion gap measurementO rdered By: Lizet Linares on 11-24-2024 Serum anion gap measurement 6 5-15 [facility] Sodium levelOrdered By: Holly Linares on 11-24-2024 Sodium level 131 mmol/L Low 136-145 [facility] Urea nitrogen [Mass/Vol]Orde red By: Lizet Linares on 11-24-2024 Serum or plasma urea nitrogen measurement (mass/volume) 34 mg/dL High 7-18 [facility] White blood cell (WBC) count Ordered By: Lizet Linares on 11-24-2024 White blood cell (WBC) count 6.8 K/mm3 4.4-11.0 [facility] Absolute neutrophil countOrd ered By: Lizet Linares on 11-17-2024 Absolute neutrophil count 3.2 X10^3/uL 2.0-7.7 [facility] Basophil percentageOrdered B y: Lizet Linares on 11-17-2024 Basophil percentage 0.7 % 0-[address] [facility] Blood urea nitrogen (BUN)/cr eatinine ratioOrdered By: Lizet Linares on 11-17-2024 Blood urea nitrogen (BUN)/creatinine ratio 22.6 RATIO High 10-20 [facility] Calcium [Mass/Vol]Ordered By : Lizet Linares on 11-17-2024 Serum or plasma calcium measurement (mass/volume) 8.6 mg/dL 8.5-10.1 [facility] Carbon dioxide measurementOr dered By: Lizet Linares on 11-17-2024 Carbon dioxide measurement 26.0 mmol/L 21.0-32.0 [facility] Chloride measurementOrdered By: Lizet Linares on 11-17-2024 Chloride measurement 103 mmol/L 98-107 [facility] Creatinine [Mass/Vol]Ordered By: Lizet Linares on 11-17-2024 Serum or plasma creatinine measurement (mass/volume) 1.37 mg/dL High 0.55-1.02 [facility] Eosinophil percentageOrdered By: Lizet Linares on 11-17-2024 Eosinophil percentage 1.5 % 0-5 [facility] Erythrocyte distribution wid th (RBC) [Ratio]Ordered By: Lizet Linares on 11-17-2024 Erythrocyte distribution width ratio 13.8 % 11.6-14.6 [facility] Erythrocyte distribution wid th standard deviationOrdered By: Lizet Linares on 11-17-2024 Erythrocyte distribution width standard deviation 44.4 fl High 35.1-43.9 [facility] Estimated glomerular filtrat ion rate (GFR) AmericanOrdered By: Lizet Linares on 11-17-2024 Estimated glomerular filtration rate (GFR) 50 mL/min Low >60 [facility] Glomerular filtration rate ( GFR) estimationOrdered By: Lizet Linares on 11-17-2024 Glomerular filtration rate (GFR) estimation 42 mL/min Low >60 [facility] Glucose measurementOrdered B y: Lizet Linares on 11-17-2024 Glucose measurement 304 mg/dL High 74-[address] [facility] Hematocrit Auto (Bld) [Volum e fraction]Ordered By: Lizet Linares on 11-17-2024 Automated blood hematocrit (percentage) 32.3 % Low 37-47 [facility] Hemoglobin measurementOrdere d By: Lizet Linares on 11-17-2024 Hemoglobin measurement 10.1 g/dL Low 12.0-15.0 [facility] Immature granulocytes/100 WB C Auto (Bld)Ordered By: Lizet Linares on 11-17-2024 Automated immature granulocyte percentage 0.300 % 0.0-0.9 [facility] Lymphocytes Auto (Unsp spec) [#/Vol]Ordered By: Lizet Linares on 11-17-2024 Absolute lymphocyte count 2.18 X10^3/uL 0.83-4. 51 [facility] Lymphocytes/100 WBC Auto (Un sp spec)Ordered By: Lizet Linares on 11-17-2024 Automated lymphocyte count as percentage of total leukocytes 36.9 % 19-41 [facility] MCV (RBC) [Entitic vol]Order ed By: Lizet Linares on 11-17-2024 MCV (mean corpuscular volume) determination 87.5 fL 81-99 [facility] Mean corpuscular hemoglobin (MCH) determinationOrdered By: Lizet Linares on 11-17-2024 Mean corpuscular hemoglobin (MCH) determination 27.4 pg 27.0-32.0 [facility] Mean corpuscular hemoglobin concentration (MCHC) determinationOrdered By: Lizet Linares on 11-17-2024 Mean corpuscular hemoglobin concentration (MCHC) determination 31.3 g/dL Low 32-36 [facility] Mean platelet volume determi nationOrdered By: Lizet Linares on 11-17-2024 Mean platelet volume determination 9.4 fl 6.2-12.0 [facility] Monocyte percentageOrdered B y: Lizet Linares on 11-17-2024 Monocyte percentage 5.8 % 0-[address] [facility] Neutrophil percentageOrdered By: Lizet Linares on 11-17-2024 Neutrophil percentage 54.8 % 47-70 [facility] Nucleated red blood cell per centageOrdered By: Lizet Linares on 11-17-2024 Nucleated red blood cell percentage 0 % 0-5 [facility] Platelet countOrdered By: Junie Linares on 11-17-2024 Platelet count 309 K/mm3 150-450 [facility] Potassium measurementOrdered By: Lizet Linares on 11-17-2024 Potassium measurement 4.3 mmol/L 3.5-5.1 [facility] RBC Auto (Bld) [#/Vol]Ordere d By: Lizet Linares on 11-17-2024 Automated blood erythrocyte count 3.69 M/mm3 Low 4.2-5.4 [facility] Serum anion gap measurementO rdered By: Lizet Linares on 11-17-2024 Serum anion gap measurement 6 5-15 [facility] Sodium levelOrdered By: Holly Linares on 11-17-2024 Sodium level 135 mmol/L Low 136-145 [facility] Urea nitrogen [Mass/Vol]Orde red By: Lizet Linares on 11-17-2024 Serum or plasma urea nitrogen measurement (mass/volume) 31 mg/dL High 7-18 [facility] White blood cell (WBC) count Ordered By: Lizet Linares on 11-17-2024 White blood cell (WBC) count 5.9 K/mm3 4.4-11.0 [facility] Absolute neutrophil countOrd ered By: Lizet Linares on 11-10-2024 Absolute neutrophil count 4.5 X10^3/uL 2.0-7.7 [facility] Basophil percentageOrdered B y: Lizet Linares on 11-10-2024 Basophil percentage 0.7 % 0-[address] [facility] Blood urea nitrogen (BUN)/cr eatinine ratioOrdered By: Lizet Linares on 11-10-2024 Blood urea nitrogen (BUN)/creatinine ratio 16.4 RATIO 10-20 [facility] Calcium [Mass/Vol]Ordered By : Lizet Linares on 11-10-2024 Serum or plasma calcium measurement (mass/volume) 9.1 mg/dL 8.5-10.1 [facility] Carbon dioxide measurementOr dered By: Lizet Linares on 11-10-2024 Carbon dioxide measurement 27.0 mmol/L 21.0-32.0 [facility] Chloride measurementOrdered By: Lizet Linares on 11-10-2024 Chloride measurement 100 mmol/L 98-107 [facility] Creatinine [Mass/Vol]Ordered By: Lizet Linares on 11-10-2024 Serum or plasma creatinine measurement (mass/volume) 1.40 mg/dL High 0.55-1.02 [facility] Eosinophil percentageOrdered By: iLzet Linares on 11-10-2024 Eosinophil percentage 1.1 % 0-5 [facility] Erythrocyte distribution wid th (RBC) [Ratio]Ordered By: Lizet Linares on 11-10-2024 Erythrocyte distribution width ratio 13.8 % 11.6-14.6 [facility] Erythrocyte distribution wid th standard deviationOrdered By: Lizet Linares on 11-10-2024 Erythrocyte distribution width standard deviation 45.1 fl High 35.1-43.9 [facility] Estimated glomerular filtrat ion rate (GFR) AmericanOrdered By: Lizet Linares on 11-10-2024 Estimated glomerular filtration rate (GFR) 49 mL/min Low >60 [facility] Glomerular filtration rate ( GFR) estimationOrdered By: Lizet Linares on 11-10-2024 Glomerular filtration rate (GFR) estimation 41 mL/min Low >60 [facility] Glucose measurementOrdered B y: Lizet Linares on 11-10-2024 Glucose measurement 342 mg/dL High 74-[address] [facility] Hematocrit Auto (Bld) [Volum e fraction]Ordered By: Lizet Linares on 11-10-2024 Automated blood hematocrit (percentage) 32.9 % Low 37-47 [facility] Hemoglobin measurementOrdere d By: Lizet Linares on 11-10-2024 Hemoglobin measurement 10.4 g/dL Low 12.0-15.0 [facility] Immature granulocytes/100 WB C Auto (Bld)Ordered By: Lizet Linares on 11-10-2024 Automated immature granulocyte percentage 0.600 % 0.0-0.9 [facility] Lymphocytes Auto (Unsp spec) [#/Vol]Ordered By: Lizet Linares on 11-10-2024 Absolute lymphocyte count 2.01 X10^3/uL 0.83-4. 51 [facility] Lymphocytes/100 WBC Auto (Un sp spec)Ordered By: Lizet Linares on 11-10-2024 Automated lymphocyte count as percentage of total leukocytes 28.2 % 19-41 [facility] MCV (RBC) [Entitic vol]Order ed By: Lizet Linares on 11-10-2024 MCV (mean corpuscular volume) determination 88.9 fL 81-99 [facility] Mean corpuscular hemoglobin (MCH) determinationOrdered By: Lizet Linares on 11-10-2024 Mean corpuscular hemoglobin (MCH) determination 28.1 pg 27.0-32.0 [facility] Mean corpuscular hemoglobin concentration (MCHC) determinationOrdered By: Lizet Linares on 11-10-2024 Mean corpuscular hemoglobin concentration (MCHC) determination 31.6 g/dL Low 32-36 [facility] Mean platelet volume determi nationOrdered By: Lizet Linares on 11-10-2024 Mean platelet volume determination 10.0 fl 6.2-12.0 [facility] Monocyte percentageOrdered B y: Lizet Linares on 11-10-2024 Monocyte percentage 6.0 % 0-[address] [facility] Neutrophil percentageOrdered By: Lizet Linares on 11-10-2024 Neutrophil percentage 63.4 % 47-70 [facility] Nucleated red blood cell per centageOrdered By: Lizet Linares on 11-10-2024 Nucleated red blood cell percentage 0 % 0-5 [facility] Platelet countOrdered By: Junie Linares on 11-10-2024 Platelet count 334 K/mm3 150-450 [facility] Potassium measurementOrdered By: Lizet Linares on 11-10-2024 Potassium measurement 4.4 mmol/L 3.5-5.1 [facility] RBC Auto (Bld) [#/Vol]Ordere d By: Lizet Linares on 11-10-2024 Automated blood erythrocyte count 3.70 M/mm3 Low 4.2-5.4 [facility] Serum anion gap measurementO rdered By: Lizet Linares on 11-10-2024 Serum anion gap measurement 7 5-15 [facility] Sodium levelOrdered By: Holly Linares on 11-10-2024 Sodium level 134 mmol/L Low 136-145 [facility] Urea nitrogen [Mass/Vol]Orde red By: Lizet Linares on 11-10-2024 Serum or plasma urea nitrogen measurement (mass/volume) 23 mg/dL High 7-18 [facility] White blood cell (WBC) count Ordered By: Lizet Linares on 11-10-2024 White blood cell (WBC) count 7.1 K/mm3 4.4-11.0 [facility] Absolute neutrophil countOrd ered By: Lizet Linares on 11-03-2024 Absolute neutrophil count 3.0 X10^3/uL 2.0-7.7 [facility] Basophil percentageOrdered B y: Lizet Linares on 11-03-2024 Basophil percentage 0.5 % 0-[address] [facility] Blood urea nitrogen (BUN)/cr eatinine ratioOrdered By: Lizet Linares on 11-03-2024 Blood urea nitrogen (BUN)/creatinine ratio 21.3 RATIO High 10-20 [facility] Calcium [Mass/Vol]Ordered By : Lizet Linares on 11-03-2024 Serum or plasma calcium measurement (mass/volume) 9.1 mg/dL 8.5-10.1 [facility] Carbon dioxide measurementOr dered By: Lizet Linares on 11-03-2024 Carbon dioxide measurement 26.0 mmol/L 21.0-32.0 [facility] Chloride measurementOrdered By: Lizet Linares on 11-03-2024 Chloride measurement 100 mmol/L 98-107 [facility] Creatinine [Mass/Vol]Ordered By: Lizet Linares on 11-03-2024 Serum or plasma creatinine measurement (mass/volume) 1.27 mg/dL High 0.55-1.02 [facility] Eosinophil percentageOrdered By: Lizet Linares on 11-03-2024 Eosinophil percentage 2.4 % 0-5 [facility] Erythrocyte distribution wid th (RBC) [Ratio]Ordered By: Lizet Linares on 11-03-2024 Erythrocyte distribution width ratio 13.9 % 11.6-14.6 [facility] Erythrocyte distribution wid th standard deviationOrdered By: Lizet Linares on 11-03-2024 Erythrocyte distribution width standard deviation 45.0 fl High 35.1-43.9 [facility] Estimated glomerular filtrat ion rate (GFR) AmericanOrdered By: Lizet Linares on 11-03-2024 Estimated glomerular filtration rate (GFR) 55 mL/min Low >60 [facility] Glomerular filtration rate ( GFR) estimationOrdered By: Lizet Linares on 11-03-2024 Glomerular filtration rate (GFR) estimation 45 mL/min Low >60 [facility] Glucose measurementOrdered B y: Lizet Linares on 11-03-2024 Glucose measurement 352 mg/dL High 74-[address] [facility] Hematocrit Auto (Bld) [Volum e fraction]Ordered By: Lizet Linares on 11-03-2024 Automated blood hematocrit (percentage) 33.0 % Low 37-47 [facility] Hemoglobin measurementOrdere d By: Lizet Linares on 11-03-2024 Hemoglobin measurement 10.2 g/dL Low 12.0-15.0 [facility] Immature granulocytes/100 WB C Auto (Bld)Ordered By: Lizet Linares on 11-03-2024 Automated immature granulocyte percentage 0.500 % 0.0-0.9 [facility] Lymphocytes Auto (Unsp spec) [#/Vol]Ordered By: Lizet Linares on 11-03-2024 Absolute lymphocyte count 1.95 X10^3/uL 0.83-4. 51 [facility] Lymphocytes/100 WBC Auto (Un sp spec)Ordered By: Lizet Linares on 11-03-2024 Automated lymphocyte count as percentage of total leukocytes 35.6 % 19-41 [facility] MCV (RBC) [Entitic vol]Order ed By: Lizet Linares on 11-03-2024 MCV (mean corpuscular volume) determination 89.2 fL 81-99 [facility] Mean corpuscular hemoglobin (MCH) determinationOrdered By: Lizet Linares on 11-03-2024 Mean corpuscular hemoglobin (MCH) determination 27.6 pg 27.0-32.0 [facility] Mean corpuscular hemoglobin concentration (MCHC) determinationOrdered By: Lizet Linares on 11-03-2024 Mean corpuscular hemoglobin concentration (MCHC) determination 30.9 g/dL Low 32-36 [facility] Mean platelet volume determi nationOrdered By: Lizet Linares on 11-03-2024 Mean platelet volume determination 9.6 fl 6.2-12.0 [facility] Monocyte percentageOrdered B y: Lizet Linares on 11-03-2024 Monocyte percentage 6.4 % 0-[address] [facility] Neutrophil percentageOrdered By: Lizet Linares on 11-03-2024 Neutrophil percentage 54.6 % 47-70 [facility] Nucleated red blood cell per centageOrdered By: Lizet Linares on 11-03-2024 Nucleated red blood cell percentage 0 % 0-5 [facility] Platelet countOrdered By: Junie Linares on 11-03-2024 Platelet count 331 K/mm3 150-450 [facility] Potassium measurementOrdered By: Lizet Linares on 11-03-2024 Potassium measurement 4.1 mmol/L 3.5-5.1 [facility] RBC Auto (Bld) [#/Vol]Ordere d By: Lizet Linares on 11-03-2024 Automated blood erythrocyte count 3.70 M/mm3 Low 4.2-5.4 [facility] Serum anion gap measurementO rdered By: Lizet Linares on 11-03-2024 Serum anion gap measurement 6 5-15 [facility] Sodium levelOrdered By: Holly Linares on 11-03-2024 Sodium level 133 mmol/L Low 136-145 [facility] Urea nitrogen [Mass/Vol]Orde red By: Lizet Linares on 11-03-2024 Serum or plasma urea nitrogen measurement (mass/volume) 27 mg/dL High 7-18 [facility] White blood cell (WBC) count Ordered By: Lizet Linares on 11-03-2024 White blood cell (WBC) count 5.5 K/mm3 4.4-11.0 [facility] TSH QnOrdered By: Lizet Linares on 11-01-2024 Serum or plasma thyroid stimulating hormone (TSH) measurement (units/volume) 2.030 uIU/mL 0.358-3.74 0 [facility] Absolute neutrophil countOrd ered By: Lizet Linares on 10-27-2024 Absolute neutrophil count 3.1 X10^3/uL 2.0-7.7 [facility] Basophil percentageOrdered B y: Lizet Linares on 10-27-2024 Basophil percentage 0.4 % 0-[address] [facility] Blood urea nitrogen (BUN)/cr eatinine ratioOrdered By: Lizet Linares on 10-27-2024 Blood urea nitrogen (BUN)/creatinine ratio 17.7 RATIO 10-20 [facility] Calcium [Mass/Vol]Ordered By : Lizet Linares on 10-27-2024 Serum or plasma calcium measurement (mass/volume) 8.3 mg/dL Low 8.5-10.1 [facility] Carbon dioxide measurementOr dered By: Lizet Linares on 10-27-2024 Carbon dioxide measurement 25.0 mmol/L 21.0-32.0 [facility] Chloride measurementOrdered By: Lizet Linares on 10-27-2024 Chloride measurement 100 mmol/L 98-107 [facility] Creatinine [Mass/Vol]Ordered By: Lizet Linares on 10-27-2024 Serum or plasma creatinine measurement (mass/volume) 1.41 mg/dL High 0.55-1.02 [facility] Eosinophil percentageOrdered By: Lizet Linares on 10-27-2024 Eosinophil percentage 2.4 % 0-5 [facility] Erythrocyte distribution wid th (RBC) [Ratio]Ordered By: Lizet Linares on 10-27-2024 Erythrocyte distribution width ratio 13.9 % 11.6-14.6 [facility] Erythrocyte distribution wid th standard deviationOrdered By: Lizet Linares on 10-27-2024 Erythrocyte distribution width standard deviation 44.4 fl High 35.1-43.9 [facility] Estimated glomerular filtrat ion rate (GFR) AmericanOrdered By: Lizet Linares on 10-27-2024 Estimated glomerular filtration rate (GFR) 49 mL/min Low >60 [facility] Glomerular filtration rate ( GFR) estimationOrdered By: Lizet Linares on 10-27-2024 Glomerular filtration rate (GFR) estimation 40 mL/min Low >60 [facility] Glucose measurementOrdered B y: Lizet Linares on 10-27-2024 Glucose measurement 425 mg/dL High 74-[address] [facility] Hematocrit Auto (Bld) [Volum e fraction]Ordered By: Lizet Linares on 10-27-2024 Automated blood hematocrit (percentage) 28.7 % Low 37-47 [facility] Hemoglobin measurementOrdere d By: Lizet Linares on 10-27-2024 Hemoglobin measurement 9.2 g/dL Low 12.0-15.0 [facility] Immature granulocytes/100 WB C Auto (Bld)Ordered By: Lizet Linares on 10-27-2024 Automated immature granulocyte percentage 0.400 % 0.0-0.9 [facility] Lymphocytes Auto (Unsp spec) [#/Vol]Ordered By: Lizet Linares on 10-27-2024 Absolute lymphocyte count 1.77 X10^3/uL 0.83-4. 51 [facility] Lymphocytes/100 WBC Auto (Un sp spec)Ordered By: Lizet Linares on 10-27-2024 Automated lymphocyte count as percentage of total leukocytes 32.8 % 19-41 [facility] MCV (RBC) [Entitic vol]Order ed By: Lizet Linares on 10-27-2024 MCV (mean corpuscular volume) determination 87.8 fL 81-99 [facility] Mean corpuscular hemoglobin (MCH) determinationOrdered By: Lizet Linares on 10-27-2024 Mean corpuscular hemoglobin (MCH) determination 28.1 pg 27.0-32.0 [facility] Mean corpuscular hemoglobin concentration (MCHC) determinationOrdered By: Lizet Linares on 10-27-2024 Mean corpuscular hemoglobin concentration (MCHC) determination 32.1 g/dL 32-36 [facility] Mean platelet volume determi nationOrdered By: Lizet Linares on 10-27-2024 Mean platelet volume determination 10.1 fl 6.2-12.0 [facility] Monocyte percentageOrdered B y: Lizet Linares on 10-27-2024 Monocyte percentage 5.9 % 0-[address] [facility] Neutrophil percentageOrdered By: Lizet Linares on 10-27-2024 Neutrophil percentage 58.1 % 47-70 [facility] Nucleated red blood cell per centageOrdered By: Lizet Linares on 10-27-2024 Nucleated red blood cell percentage 0 % 0-5 [facility] Platelet countOrdered By: Junie Linares on 10-27-2024 Platelet count 292 K/mm3 150-450 [facility] Potassium measurementOrdered By: Lizet Linares on 10-27-2024 Potassium measurement 4.0 mmol/L 3.5-5.1 [facility] RBC Auto (Bld) [#/Vol]Ordere d By: Lizet Linares on 10-27-2024 Automated blood erythrocyte count 3.27 M/mm3 Low 4.2-5.4 [facility] Serum anion gap measurementO rdered By: Lizet Linares on 10-27-2024 Serum anion gap measurement 8 5-15 [facility] Sodium levelOrdered By: Holly Linares on 10-27-2024 Sodium level 132 mmol/L Low 136-145 [facility] Urea nitrogen [Mass/Vol]Orde red By: Lizet Linares on 10-27-2024 Serum or plasma urea nitrogen measurement (mass/volume) 25 mg/dL High 7-18 [facility] White blood cell (WBC) count Ordered By: Lizet Linares on 10-27-2024 White blood cell (WBC) count 5.4 K/mm3 4.4-11.0 [facility] ALP [Catalytic activity/Vol] Ordered By: Salvador Campbell on 10-24-2024 Serum or plasma alkaline phosphatase measurement 49 U/L 45-117 [facility] ALT [Catalytic activity/Vol] Ordered By: Salvador Campbell on 10-24-2024 Serum or plasma alanine aminotransferase (ALT) measurement 25 U/L 13-56 [facility] Absolute neutrophil countOrd ered By: Salvador Campbell on 10-24-2024 Absolute neutrophil count 4.0 X10^3/uL 2.0-7.7 [facility] Albumin [Mass/Vol]Ordered By : Salvador Campbell on 10-24-2024 Serum or plasma albumin measurement (mass/volume) 3.0 g/dL Low 3.2-5.0 [facility] Albumin to globulin ratioOrd ered By: Salvador Campbell on 10-24-2024 Albumin to globulin ratio 0.8 RATIO Low 0.9-2.4 [facility] Basophil percentageOrdered B y: Salvador Campbell on 10-24-2024 Basophil percentage 0.7 % 0-[address] [facility] Bilirubin, totalOrdered By: Salvador Campbell on 10-24-2024 Bilirubin, total 0.30 mg/dL 0.20-1.00 [facility] Blood urea nitrogen (BUN)/cr eatinine ratioOrdered By: Salvador Campbell on 10-24-2024 Blood urea nitrogen (BUN)/creatinine ratio 21.1 RATIO High 10-20 [facility] Calcium [Mass/Vol]Ordered By : Salvador Campbell on 10-24-2024 Serum or plasma calcium measurement (mass/volume) 8.8 mg/dL 8.5-10.1 [facility] Carbon dioxide measurementOr dered By: Salvador Campbell on 10-24-2024 Carbon dioxide measurement 26.0 mmol/L 21.0-32.0 [facility] Chloride measurementOrdered By: Salvador Campbell on 10-24-2024 Chloride measurement 100 mmol/L 98-107 [facility] Clarity (U)Ordered By: Natan Campbell on 10-24-2024 Urine clarity Clear Clear [facility] Color (U)Ordered By: Salvador Campbell on 10-24-2024 Urine color determination Yellow Yellow [facility] Creatinine [Mass/Vol]Ordered By: Salvador Campbell on 10-24-2024 Serum or plasma creatinine measurement (mass/volume) 1.28 mg/dL High 0.55-1.02 [facility] Eosinophil percentageOrdered By: Salvador Campbell on 10-24-2024 Eosinophil percentage 2.2 % 0-5 [facility] Epithelial cells.squamous LM Ql (Urine sed)Ordered By: Salvador Campbell on 10-24-2024 Squamous epithelial cells detection in urine sediment by light microscopy 0-5 SEEN /hpf 5-10 [facility] Erythrocyte distribution wid th (RBC) [Ratio]Ordered By: Salvador Campbell on 10-24-2024 Erythrocyte distribution width ratio 13.6 % 11.6-14.6 [facility] Erythrocyte distribution wid th standard deviationOrdered By: Salvador Campbell on 10-24-2024 Erythrocyte distribution width standard deviation 44.1 fl High 35.1-43.9 [facility] Estimated glomerular filtrat ion rate (GFR) AmericanOrdered By: Salvador Campbell on 10-24-2024 Estimated glomerular filtration rate (GFR) 55 mL/min Low >60 [facility] Estimation of creatinine jacqui aranceOrdered By: Salvador Campbell on 10-24-2024 Estimation of creatinine clearance 46.41 ml/min [facility] Glomerular filtration rate ( GFR) estimationOrdered By: Salvador Campbell on 10-24-2024 Glomerular filtration rate (GFR) estimation 45 mL/min Low >60 [facility] Glucose Ql (U)Ordered By: nakul Campbell on 10-24-2024 Urine glucose detection 250 mg/dl High Normal W [facility] Glucose measurementOrdered B y: Salvador Campbell on 10-24-2024 Glucose measurement 328 mg/dL High 74-[address] [facility] Hematocrit Auto (Bld) [Volum e fraction]Ordered By: Salvador Campbell on 10-24-2024 Automated blood hematocrit (percentage) 33.6 % Low 37-47 [facility] Hemoglobin measurementOrdere d By: Salvador Campbell on 10-24-2024 Hemoglobin measurement 10.4 g/dL Low 12.0-15.0 [facility] Immature granulocytes/100 WB C Auto (Bld)Ordered By: Salvador Campbell on 10-24-2024 Automated immature granulocyte percentage 0.900 % 0.0-0.9 [facility] Lactic acid measurementOrder ed By: Salvador Campbell on 10-24-2024 Lactic acid measurement 1.7 mmol/L 0.4-2.0 [facility] Lymphocytes Auto (Unsp spec) [#/Vol]Ordered By: Salvador Campbell on 10-24-2024 Absolute lymphocyte count 2.05 X10^3/uL 0.83-4. 51 [facility] Lymphocytes/100 WBC Auto (Un sp spec)Ordered By: Salvador Campbell on 10-24-2024 Automated lymphocyte count as percentage of total leukocytes 30.7 % 19-41 [facility] MCV (RBC) [Entitic vol]Order ed By: Salvdaor Campbell on 10-24-2024 MCV (mean corpuscular volume) determination 88.9 fL 81-99 [facility] Mean corpuscular hemoglobin (MCH) determinationOrdered By: Salvador Campbell on 10-24-2024 Mean corpuscular hemoglobin (MCH) determination 27.5 pg 27.0-32.0 [facility] Mean corpuscular hemoglobin concentration (MCHC) determinationOrdered By: Salvador Campbell on 10-24-2024 Mean corpuscular hemoglobin concentration (MCHC) determination 31.0 g/dL Low 32-36 [facility] Mean platelet volume determi nationOrdered By: Salvador Campbell on 10-24-2024 Mean platelet volume determination 9.7 fl 6.2-12.0 [facility] Monocyte percentageOrdered B y: Salvador Campbell on 10-24-2024 Monocyte percentage 5.7 % 0-[address] [facility] Neutrophil percentageOrdered By: Salvador Campbell on 10-24-2024 Neutrophil percentage 59.8 % 47-70 [facility] No Panel InformationOrdered By: Salvador Campbell on 10-24-2024 32 U/L 15-37 [facility] Nucleated red blood cell per centageOrdered By: Salvador Campbell on 10-24-2024 Nucleated red blood cell percentage 0 % 0-5 [facility] Platelet countOrdered By: Malachi Campbell on 10-24-2024 Platelet count 352 K/mm3 150-450 [facility] Potassium measurementOrdered By: Salvador Campbell on 10-24-2024 Potassium measurement 4.1 mmol/L 3.5-5.1 [facility] Protein Test strip Ql (U)Ord ered By: Salvador Campbell on 10-24-2024 Urine protein assay by test strip, semi-quantitative 15 mg/dl High Negative [facility] RBC Auto (Bld) [#/Vol]Ordere d By: Salvador Campbell on 10-24-2024 Automated blood erythrocyte count 3.78 M/mm3 Low 4.2-5.4 [facility] Serum anion gap measurementO rdered By: Salvador Campbell on 10-24-2024 Serum anion gap measurement 8 5-15 [facility] Serum globulin measurementOr dered By: Salvador Campbell on 10-24-2024 Serum globulin measurement 3.8 g/dL 2.2-4.2 [facility] Sodium levelOrdered By: Charles Campbell on 10-24-2024 Sodium level 135 mmol/L Low 136-145 [facility] Specific gravity (U) [Rel de nsity]Ordered By: Salvador Campbell on 10-24-2024 Urine specific gravity measurement 1.015 1.002-1.03 0 [facility] Total proteinOrdered By: Roldan Campbell on 10-24-2024 Total protein 6.8 g/dL 6.4-8.2 [facility] Urea nitrogen [Mass/Vol]Orde red By: Salvador Campbell on 10-24-2024 Serum or plasma urea nitrogen measurement (mass/volume) 27 mg/dL High 7-18 [facility] Urine total bilirubin detect ion by test stripOrdered By: Salvador Campbell on 10-24-2024 Urine total bilirubin detection by test strip Negative Negative [facility] Urobilinogen Ql (U)Ordered B y: Salvador Campbell on 10-24-2024 Urine urobilinogen measurement Normal mg/dl Normal [facility] White blood cell (WBC) count Ordered By: Salvador Campbell on 10-24-2024 White blood cell (WBC) count 6.7 K/mm3 4.4-11.0 [facility] White blood cell countOrdere d By: Salvador Campbell on 10-24-2024 White blood cell count 0 SEEN /hpf W [facility] pH (U)Ordered By: Padmini on 10-24-2024 Urine pH 6.0 5.0 - 8.0 [facility] Absolute neutrophil countOrd ered By: Lizet Linares on 10-20-2024 Absolute neutrophil count 3.2 X10^3/uL 2.0-7.7 [facility] Basophil percentageOrdered B y: Lizet Linares on 10-20-2024 Basophil percentage 0.7 % 0-[address] [facility] Blood urea nitrogen (BUN)/cr eatinine ratioOrdered By: Lizet Linares on 10-20-2024 Blood urea nitrogen (BUN)/creatinine ratio 22.0 RATIO High 10-20 [facility] Calcium [Mass/Vol]Ordered By : Lizet Linares on 10-20-2024 Serum or plasma calcium measurement (mass/volume) 8.4 mg/dL Low 8.5-10.1 [facility] Carbon dioxide measurementOr dered By: Lizet Linares on 10-20-2024 Carbon dioxide measurement 27.0 mmol/L 21.0-32.0 [facility] Chloride measurementOrdered By: Lizet Linares on 10-20-2024 Chloride measurement 102 mmol/L 98-107 [facility] Creatinine [Mass/Vol]Ordered By: Lizet Linares on 10-20-2024 Serum or plasma creatinine measurement (mass/volume) 1.27 mg/dL High 0.55-1.02 [facility] Eosinophil percentageOrdered By: Lizet Linares on 10-20-2024 Eosinophil percentage 3.1 % 0-5 [facility] Erythrocyte distribution wid th (RBC) [Ratio]Ordered By: Lizet Linares on 10-20-2024 Erythrocyte distribution width ratio 13.6 % 11.6-14.6 [facility] Erythrocyte distribution wid th standard deviationOrdered By: Lizet Linares on 10-20-2024 Erythrocyte distribution width standard deviation 44.0 fl High 35.1-43.9 [facility] Estimated glomerular filtrat ion rate (GFR) AmericanOrdered By: Lizet Linares on 10-20-2024 Estimated glomerular filtration rate (GFR) 55 mL/min Low >60 [facility] Glomerular filtration rate ( GFR) estimationOrdered By: Lizet Portertal on 10-20-2024 Glomerular filtration rate (GFR) estimation 45 mL/min Low >60 [facility] Glucose measurementOrdered B y: Lizet Linares on 10-20-2024 Glucose measurement 277 mg/dL High 74-[address] [facility] Hematocrit Auto (Bld) [Volum e fraction]Ordered By: Lizet Linares on 10-20-2024 Automated blood hematocrit (percentage) 30.6 % Low 37-47 [facility] Hemoglobin measurementOrdere d By: Hollystacey Tayjntal on 10-20-2024 Hemoglobin measurement 9.6 g/dL Low 12.0-15.0 [facility] Immature granulocytes/100 WB C Auto (Bld)Ordered By: Lizet Linares on 10-20-2024 Automated immature granulocyte percentage 0.300 % 0.0-0.9 [facility] Lymphocytes Auto (Unsp spec) [#/Vol]Ordered By: Lizet Linares on 10-20-2024 Absolute lymphocyte count 2.38 X10^3/uL 0.83-4. 51 [facility] Lymphocytes/100 WBC Auto (Un sp spec)Ordered By: Lizet Crossjntal on 10-20-2024 Automated lymphocyte count as percentage of total leukocytes 38.9 % 19-41 [facility] MCV (RBC) [Entitic vol]Order ed By: Juniechristajanellnatasha Crossjntal on 10-20-2024 MCV (mean corpuscular volume) determination 88.7 fL 81-99 [facility] Mean corpuscular hemoglobin (MCH) determinationOrdered By: Lizet Linares on 10-20-2024 Mean corpuscular hemoglobin (MCH) determination 27.8 pg 27.0-32.0 [facility] Mean corpuscular hemoglobin concentration (MCHC) determinationOrdered By: Juniemarcelle Crossjntal on 10-20-2024 Mean corpuscular hemoglobin concentration (MCHC) determination 31.4 g/dL Low 32-36 [facility] Mean platelet volume determi nationOrdered By: Lizet Crossjntal on 10-20-2024 Mean platelet volume determination 9.8 fl 6.2-12.0 [facility] Monocyte percentageOrdered B y: Lizet Linares on 10-20-2024 Monocyte percentage 5.2 % 0-[address] [facility] Neutrophil percentageOrdered By: Lizet Linares on 10-20-2024 Neutrophil percentage 51.8 % 47-70 [facility] Nucleated red blood cell per centageOrdered By: Lizet Linares on 10-20-2024 Nucleated red blood cell percentage 0 % 0-5 [facility] Platelet countOrdered By: Junie Linares on 10-20-2024 Platelet count 325 K/mm3 150-450 [facility] Potassium measurementOrdered By: Lizet Linares on 10-20-2024 Potassium measurement 3.9 mmol/L 3.5-5.1 [facility] RBC Auto (Bld) [#/Vol]Ordere d By: Lizet Linares on 10-20-2024 Automated blood erythrocyte count 3.45 M/mm3 Low 4.2-5.4 [facility] Serum anion gap measurementO rdered By: Lizet Linares on 10-20-2024 Serum anion gap measurement 6 5-15 [facility] Sodium levelOrdered By: Holly Linares on 10-20-2024 Sodium level 135 mmol/L Low 136-145 [facility] Urea nitrogen [Mass/Vol]Orde red By: Lizet Linares on 10-20-2024 Serum or plasma urea nitrogen measurement (mass/volume) 28 mg/dL High 7-18 [facility] White blood cell (WBC) count Ordered By: Lizet Linares on 10-20-2024 White blood cell (WBC) count 6.1 K/mm3 4.4-11.0 [facility] Absolute neutrophil countOrd ered By: Lizet Linares on 10-13-2024 Absolute neutrophil count 3.3 X10^3/uL 2.0-7.7 [facility] Basophil percentageOrdered B y: Lizet Linares on 10-13-2024 Basophil percentage 0.8 % 0-[address] [facility] Blood urea nitrogen (BUN)/cr eatinine ratioOrdered By: Lizet Linares on 10-13-2024 Blood urea nitrogen (BUN)/creatinine ratio 13.7 RATIO 10-20 [facility] Calcium [Mass/Vol]Ordered By : Lizet Linares on 10-13-2024 Serum or plasma calcium measurement (mass/volume) 9.0 mg/dL 8.5-10.1 [facility] Carbon dioxide measurementOr dered By: Lziet Linares on 10-13-2024 Carbon dioxide measurement 28.0 mmol/L 21.0-32.0 [facility] Chloride measurementOrdered By: Lizet Linares on 10-13-2024 Chloride measurement 103 mmol/L 98-107 [facility] Creatinine [Mass/Vol]Ordered By: Lizet Linares on 10-13-2024 Serum or plasma creatinine measurement (mass/volume) 1.31 mg/dL High 0.55-1.02 [facility] Eosinophil percentageOrdered By: Lizet Linares on 10-13-2024 Eosinophil percentage 2.5 % 0-5 [facility] Erythrocyte distribution wid th (RBC) [Ratio]Ordered By: Lizet Linares on 10-13-2024 Erythrocyte distribution width ratio 13.8 % 11.6-14.6 [facility] Erythrocyte distribution wid th standard deviationOrdered By: Lizet Linares on 10-13-2024 Erythrocyte distribution width standard deviation 44.6 fl High 35.1-43.9 [facility] Estimated glomerular filtrat ion rate (GFR) AmericanOrdered By: Lizet Linares on 10-13-2024 Estimated glomerular filtration rate (GFR) 53 mL/min Low >60 [facility] Glomerular filtration rate ( GFR) estimationOrdered By: Lizet Linares on 10-13-2024 Glomerular filtration rate (GFR) estimation 44 mL/min Low >60 [facility] Glucose measurementOrdered B y: Lizet Linares on 10-13-2024 Glucose measurement 234 mg/dL High 74-[address] [facility] Hematocrit Auto (Bld) [Volum e fraction]Ordered By: Lizet Linares on 10-13-2024 Automated blood hematocrit (percentage) 34.2 % Low 37-47 [facility] Hemoglobin measurementOrdere d By: Lizet Linares on 10-13-2024 Hemoglobin measurement 10.9 g/dL Low 12.0-15.0 [facility] Immature granulocytes/100 WB C Auto (Bld)Ordered By: Lizet Linares on 10-13-2024 Automated immature granulocyte percentage 0.500 % 0.0-0.9 [facility] Lymphocytes Auto (Unsp spec) [#/Vol]Ordered By: Lizet Linares on 10-13-2024 Absolute lymphocyte count 2.10 X10^3/uL 0.83-4. 51 [facility] Lymphocytes/100 WBC Auto (Un sp spec)Ordered By: Lizet Linares on 10-13-2024 Automated lymphocyte count as percentage of total leukocytes 35.3 % 19-41 [facility] MCV (RBC) [Entitic vol]Order ed By: Lizet Linares on 10-13-2024 MCV (mean corpuscular volume) determination 88.6 fL 81-99 [facility] Mean corpuscular hemoglobin (MCH) determinationOrdered By: Lizet Linares on 10-13-2024 Mean corpuscular hemoglobin (MCH) determination 28.2 pg 27.0-32.0 [facility] Mean corpuscular hemoglobin concentration (MCHC) determinationOrdered By: Lizet Linares on 10-13-2024 Mean corpuscular hemoglobin concentration (MCHC) determination 31.9 g/dL Low 32-36 [facility] Mean platelet volume determi nationOrdered By: Lizet Linares on 10-13-2024 Mean platelet volume determination 9.7 fl 6.2-12.0 [facility] Monocyte percentageOrdered B y: Lizet Linares on 10-13-2024 Monocyte percentage 6.2 % 0-[address] [facility] Neutrophil percentageOrdered By: Lizet Linares on 10-13-2024 Neutrophil percentage 54.7 % 47-70 [facility] Nucleated red blood cell per centageOrdered By: Lizet Linares on 10-13-2024 Nucleated red blood cell percentage 0 % 0-5 [facility] Platelet countOrdered By: Junie christastacey Linares on 10-13-2024 Platelet count 361 K/mm3 150-450 [facility] Potassium measurementOrdered By: Lizet Linares on 10-13-2024 Potassium measurement 3.9 mmol/L 3.5-5.1 [facility] RBC Auto (Bld) [#/Vol]Ordere d By: Lizet Linares on 10-13-2024 Automated blood erythrocyte count 3.86 M/mm3 Low 4.2-5.4 [facility] Serum anion gap measurementO rdered By: Lizet Linares on 10-13-2024 Serum anion gap measurement 5 5-15 [facility] Sodium levelOrdered By: Holly Linares on 10-13-2024 Sodium level 136 mmol/L 136-145 [facility] Urea nitrogen [Mass/Vol]Orde red By: Lizet Linares on 10-13-2024 Serum or plasma urea nitrogen measurement (mass/volume) 18 mg/dL 7-18 [facility] White blood cell (WBC) count Ordered By: Lizet Linares on 10-13-2024 White blood cell (WBC) count 6.0 K/mm3 4.4-11.0 [facility] Absolute neutrophil countOrd ered By: Lizet Linares on 10-06-2024 Absolute neutrophil count 2.8 X10^3/uL 2.0-7.7 [facility] Basophil percentageOrdered B y: Lizet Linares on 10-06-2024 Basophil percentage 0.5 % 0-[address] [facility] Blood urea nitrogen (BUN)/cr eatinine ratioOrdered By: Lizet Linares on 10-06-2024 Blood urea nitrogen (BUN)/creatinine ratio 15.5 RATIO 10- [facility] Calcium [Mass/Vol]Ordered By : Lizet Linares on 10-06-2024 Serum or plasma calcium measurement (mass/volume) 8.6 mg/dL 8.5-10.1 [facility] Carbon dioxide measurementOr dered By: Lizet Linares on 10-06-2024 Carbon dioxide measurement 26.0 mmol/L 21.0-32.0 [facility] Chloride measurementOrdered By: Lizet Linares on 10-06-2024 Chloride measurement 106 mmol/L 98-107 [facility] Creatinine [Mass/Vol]Ordered By: Lizet Linares on 10-06-2024 Serum or plasma creatinine measurement (mass/volume) 1.16 mg/dL High 0.55-1.02 [facility] Eosinophil percentageOrdered By: Lizet Linares on 10-06-2024 Eosinophil percentage 3.4 % 0-5 [facility] Erythrocyte distribution wid th (RBC) [Ratio]Ordered By: Lizet Linares on 10-06-2024 Erythrocyte distribution width ratio 14.0 % 11.6-14.6 [facility] Erythrocyte distribution wid th standard deviationOrdered By: Lizet Linares on 10-06-2024 Erythrocyte distribution width standard deviation 45.4 fl High 35.1-43.9 [facility] Estimated glomerular filtrat ion rate (GFR) AmericanOrdered By: Lizet Linares on 10-06-2024 Estimated glomerular filtration rate (GFR) 61 mL/min >60 [facility] Glomerular filtration rate ( GFR) estimationOrdered By: Lizet Linares on 10-06-2024 Glomerular filtration rate (GFR) estimation 50 mL/min Low >60 [facility] Glucose measurementOrdered B y: Lizet Linares on 10-06-2024 Glucose measurement 204 mg/dL High 74-[address] [facility] Hematocrit Auto (Bld) [Volum e fraction]Ordered By: Lizet Linares on 10-06-2024 Automated blood hematocrit (percentage) 30.7 % Low 37-47 [facility] Hemoglobin measurementOrdere d By: Lizet Linares on 10-06-2024 Hemoglobin measurement 9.8 g/dL Low 12.0-15.0 [facility] Immature granulocytes/100 WB C Auto (Bld)Ordered By: Lizet Linares on 10-06-2024 Automated immature granulocyte percentage 0.300 % 0.0-0.9 [facility] Lymphocytes Auto (Unsp spec) [#/Vol]Ordered By: Lizet Linares on 10-06-2024 Absolute lymphocyte count 2.46 X10^3/uL 0.83-4. 51 [facility] Lymphocytes/100 WBC Auto (Un sp spec)Ordered By: Lizet Linares on 10-06-2024 Automated lymphocyte count as percentage of total leukocytes 41.8 % High 19-41 [facility] MCV (RBC) [Entitic vol]Order ed By: Lizet Linares on 10-06-2024 MCV (mean corpuscular volume) determination 89.2 fL 81-99 [facility] Mean corpuscular hemoglobin (MCH) determinationOrdered By: Lizet Linares on 10-06-2024 Mean corpuscular hemoglobin (MCH) determination 28.5 pg 27.0-32.0 [facility] Mean corpuscular hemoglobin concentration (MCHC) determinationOrdered By: Lizet Linares on 10-06-2024 Mean corpuscular hemoglobin concentration (MCHC) determination 31.9 g/dL Low 32-36 [facility] Mean platelet volume determi nationOrdered By: Lizet Linares on 10-06-2024 Mean platelet volume determination 9.4 fl 6.2-12.0 [facility] Monocyte percentageOrdered B y: Lizet Linares on 10-06-2024 Monocyte percentage 7.1 % 0-[address] [facility] Neutrophil percentageOrdered By: Lizet Linares on 10-06-2024 Neutrophil percentage 46.9 % Low 47-70 [facility] Nucleated red blood cell per centageOrdered By: Lizet Linares on 10-06-2024 Nucleated red blood cell percentage 0 % 0-5 [facility] Platelet countOrdered By: Junie christastacey Linares on 10-06-2024 Platelet count 330 K/mm3 150-450 [facility] Potassium measurementOrdered By: Lizet Linares on 10-06-2024 Potassium measurement 3.9 mmol/L 3.5-5.1 [facility] RBC Auto (Bld) [#/Vol]Ordere d By: Lizet Linares on 10-06-2024 Automated blood erythrocyte count 3.44 M/mm3 Low 4.2-5.4 [facility] Serum anion gap measurementO rdered By: Lizet Linares on 10-06-2024 Serum anion gap measurement 6 5-15 [facility] Sodium levelOrdered By: Holly Linares on 10-06-2024 Sodium level 138 mmol/L 136-145 [facility] Urea nitrogen [Mass/Vol]Orde red By: Lizet Linares on 10-06-2024 Serum or plasma urea nitrogen measurement (mass/volume) 18 mg/dL 7-18 [facility] White blood cell (WBC) count Ordered By: Lizet Linares on 10-06-2024 White blood cell (WBC) count 5.9 K/mm3 4.4-11.0 [facility] Absolute neutrophil countOrd ered By: Lizet Linares on 09-29-2024 Absolute neutrophil count 3.1 X10^3/uL 2.0-7.7 [facility] Basophil percentageOrdered B y: Lizet Linares on 09-29-2024 Basophil percentage 0.5 % 0-[address] [facility] Blood urea nitrogen (BUN)/cr eatinine ratioOrdered By: Lizet Linares on 09-29-2024 Blood urea nitrogen (BUN)/creatinine ratio 18.3 RATIO 10-20 [facility] Calcium [Mass/Vol]Ordered By : Lizet Linares on 09-29-2024 Serum or plasma calcium measurement (mass/volume) 8.6 mg/dL 8.5-10.1 [facility] Carbon dioxide measurementOr dered By: Lizet Linares on 09-29-2024 Carbon dioxide measurement 26.0 mmol/L 21.0-32.0 [facility] Chloride measurementOrdered By: Lizet Linares on 09-29-2024 Chloride measurement 105 mmol/L 98-107 [facility] Creatinine [Mass/Vol]Ordered By: Lizet Linares on 09-29-2024 Serum or plasma creatinine measurement (mass/volume) 1.20 mg/dL High 0.55-1.02 [facility] Eosinophil percentageOrdered By: Lizet Linares on 09-29-2024 Eosinophil percentage 1.7 % 0-5 [facility] Erythrocyte distribution wid th (RBC) [Ratio]Ordered By: Lizet Linares on 09-29-2024 Erythrocyte distribution width ratio 14.1 % 11.6-14.6 [facility] Erythrocyte distribution wid th standard deviationOrdered By: Lizet Linares on 09-29-2024 Erythrocyte distribution width standard deviation 45.8 fl High 35.1-43.9 [facility] Estimated glomerular filtrat ion rate (GFR) AmericanOrdered By: Lizet Linares on 09-29-2024 Estimated glomerular filtration rate (GFR) 59 mL/min Low >60 [facility] Glomerular filtration rate ( GFR) estimationOrdered By: Lizet Linares on 09-29-2024 Glomerular filtration rate (GFR) estimation 49 mL/min Low >60 [facility] Glucose measurementOrdered B y: Lizet Linares on 09-29-2024 Glucose measurement 193 mg/dL High 74-[address] [facility] Hematocrit Auto (Bld) [Volum e fraction]Ordered By: Lizet Linares on 09-29-2024 Automated blood hematocrit (percentage) 30.8 % Low 37-47 [facility] Hemoglobin measurementOrdere d By: Lizet Linares on 09-29-2024 Hemoglobin measurement 9.8 g/dL Low 12.0-15.0 [facility] Immature granulocytes/100 WB C Auto (Bld)Ordered By: Lizet Linares on 09-29-2024 Automated immature granulocyte percentage 0.500 % 0.0-0.9 [facility] Lymphocytes Auto (Unsp spec) [#/Vol]Ordered By: Lizet Linares on 09-29-2024 Absolute lymphocyte count 2.13 X10^3/uL 0.83-4. 51 [facility] Lymphocytes/100 WBC Auto (Un sp spec)Ordered By: Lizet Linares on 09-29-2024 Automated lymphocyte count as percentage of total leukocytes 37.2 % 19-41 [facility] MCV (RBC) [Entitic vol]Order ed By: Lizet Linares on 09-29-2024 MCV (mean corpuscular volume) determination 89.5 fL 81-99 [facility] Mean corpuscular hemoglobin (MCH) determinationOrdered By: Lizet Lniares on 09-29-2024 Mean corpuscular hemoglobin (MCH) determination 28.5 pg 27.0-32.0 [facility] Mean corpuscular hemoglobin concentration (MCHC) determinationOrdered By: Lizet Linares on 09-29-2024 Mean corpuscular hemoglobin concentration (MCHC) determination 31.8 g/dL Low 32-36 [facility] Mean platelet volume determi nationOrdered By: Lizet Linares on 09-29-2024 Mean platelet volume determination 9.6 fl 6.2-12.0 [facility] Monocyte percentageOrdered B y: Lizet Linares on 09-29-2024 Monocyte percentage 6.5 % 0-[address] [facility] Neutrophil percentageOrdered By: Lizet Linares on 09-29-2024 Neutrophil percentage 53.6 % 47-70 [facility] Nucleated red blood cell per centageOrdered By: Lizet Linares on 09-29-2024 Nucleated red blood cell percentage 0 % 0-5 [facility] Platelet countOrdered By: Junie Linares on 09-29-2024 Platelet count 318 K/mm3 150-450 [facility] Potassium measurementOrdered By: Lizet Linares on 09-29-2024 Potassium measurement 3.8 mmol/L 3.5-5.1 [facility] RBC Auto (Bld) [#/Vol]Ordere d By: Lizet Linares on 09-29-2024 Automated blood erythrocyte count 3.44 M/mm3 Low 4.2-5.4 [facility] Serum anion gap measurementO rdered By: Lizet Linares on 09-29-2024 Serum anion gap measurement 7 5-15 [facility] Sodium levelOrdered By: Holly Linares on 09-29-2024 Sodium level 138 mmol/L 136-145 [facility] Urea nitrogen [Mass/Vol]Orde red By: Lizet Linares on 09-29-2024 Serum or plasma urea nitrogen measurement (mass/volume) 22 mg/dL High 7-18 [facility] White blood cell (WBC) count Ordered By: Lizet Linares on 09-29-2024 White blood cell (WBC) count 5.7 K/mm3 4.4-11.0 [facility] Absolute lymphocyte countOrd ered By: Lizet Linares on 02-25-2024 Lymphocytes Auto (Unsp spec) [#/Vol] 2.72 10*3/uL 0.83-4.51 [facility] Automated lymphocyte count a s percentage of total leukocytesOrdered By: Lizet Linares on 02-25-2024 Lymphocytes/100 WBC Auto (Unsp spec) 38.5 % 19-41 [facility] Basophil percentageOrdered B y: Lizet Linares on 02-25-2024 Basophil percentage 10.6 g/dL 12.0-15.[address] [facility] Basophil percentage 222 mg/dL 74-[address] [facility] Basophil percentage 6.5 g/dL 6.4-8.[address] [facility] Basophil percentage 0.30 mg/dL 0.20-1.[address] [facility] Basophil percentage 138 mmol/L 136-[address] [facility] Basophil percentage 4.0 mmol/L 3.5-5.[address] [facility] Basophil percentage 105 mmol/L 98-[address] [facility] Basophils (Bld) [#/Vol] 7.1 10*3/uL 4.4-11.0 [facility] Basophils (Bld) [#/Vol] 3.8 10*3/uL 2.0-7.7 [facility] Basophils/100 WBC (Bld) 53.5 % 47-70 [facility] Basophils/100 WBC (Bld) 5.4 % 0-10 [facility] Basophils/100 WBC (Bld) 1.8 % 0-5 [facility] Basophils/100 WBC (Bld) 0.4 % 0-1 [facility] Determination of erythrocyte mean corpuscular volume (MCV)Ordered By: Lizet Linares on 02-25-2024 MCV (RBC) [Entitic vol] 89.0 fL 81-99 [facility] Direct bilirubinOrdered By: Lizet Linares on 02-25-2024 Bilirubin.direct [Mass/Vol] 0.11 mg/dL 0.00-0.30 [facility] Erythrocyte distribution wid th ratioOrdered By: Lizet Linares on 02-25-2024 Erythrocyte distribution width (RBC) [Ratio] 13.6 % 11.6-14.6 [facility] Erythrocyte distribution wid th standard deviationOrdered By: Lizet Linares on 02-25-2024 Erythrocyte distribution width (RBC) [Entitic vol] 43.9 fL 35.1-43.9 [facility] Hematocrit Auto (Bld) [Volum e fraction]Ordered By: Lizet Linares on 02-25-2024 Hematocrit (Bld) [Volume fraction] 34.1 % 37-47 [facility] Immature granulocytes/100 WB C Auto (Bld)Ordered By: Lizet Linares on 02-25-2024 Immature granulocytes/100 WBC (Bld) 0.400 % 0.0-0.9 [facility] No Panel InformationOrdered By: Lizet Linares on 02-25-2024 27.7 pg 27.0-32.0 [facility] 31.1 g/dL 32-36 [facility] 335 K/mm3 150-450 [facility] 9.2 fl 6.2-12.0 [facility] 0 % 0-5 [facility] 50 mL/min >60 [facility] 61 mL/min >60 [facility] 12.8 RATIO 10-20 [facility] 3.8 g/dL 2.2-4.2 [facility] 45 U/L 45-117 [facility] 20 U/L 13-56 [facility] 25.0 mmol/L 21.0-32.0 [facility] RBC Auto (Bld) [#/Vol]Ordere d By: Lizet Linares on 02-25-2024 RBC (Bld) [#/Vol] 3.83 10*6/uL 4.2-5.[address] [facility] Serum or plasma calcium tai urement (mass/volume)Ordered By: Lizet Linares on 02-25-2024 Calcium [Mass/Vol] 8.9 mg/dL 8.5-10.1 [facility] Serum or plasma creatinine m easurement (mass/volume)Ordered By: Lizet Linares on 02-25-2024 Creatinine [Mass/Vol] 1.17 mg/dL 0.55-1.02 [facility] Serum or plasma thyroid stim ulating hormone (TSH) measurement (units/volume)Ordered By: Lizet Linares on 02-25-2024 TSH Qn 0.07 uIU/mL 0.358-3.74 [facility] Serum or plasma urea nitroge n measurement (mass/volume)Ordered By: Lizet Linares on 02-25-2024 Urea nitrogen [Mass/Vol] 15 mg/dL 7-18 [facility] Thin prep Papanicolaou smear with manual screeningOrdered By: [facility] on 02-25-2024 Thin prep Papanicolaou smear with manual screening 2.7 g/dL 3.2-5.0 [facility] Thin prep Papanicolaou smear with manual screening 15 U/L 15-37 [facility] Thin prep Papanicolaou smear with manual screening 8 5-15 [facility] Whole blood hemoglobin A1c/t otal hemoglobin ratio (mass fraction)Ordered By: Lizet Linares on 02-25-2024 HbA1c (Bld) [Mass fraction] 6.8 % 3.8-5.6 [facility] Absolute lymphocyte countOrd ered By: Lizet Linares on 02-18-2024 Lymphocytes Auto (Unsp spec) [#/Vol] 2.70 10*3/uL 0.83-4.51 [facility] Automated lymphocyte count a s percentage of total leukocytesOrdered By: Lizet Linares on 02-18-2024 Lymphocytes/100 WBC Auto (Unsp spec) 42.6 % 19-41 [facility] Basophil percentageOrdered B y: Lizet Linares on 02-18-2024 Basophil percentage 11.0 g/dL 12.0-15.[address] [facility] Basophil percentage 180 mg/dL 74-[address] [facility] Basophil percentage 139 mmol/L 136-[address] [facility] Basophil percentage 4.2 mmol/L 3.5-5.[address] [facility] Basophil percentage 107 mmol/L 98-[address] [facility] Basophils (Bld) [#/Vol] 6.3 10*3/uL 4.4-11.0 [facility] Basophils (Bld) [#/Vol] 3.1 10*3/uL 2.0-7.7 [facility] Basophils/100 WBC (Bld) 48.9 % 47-70 [facility] Basophils/100 WBC (Bld) 6.0 % 0-10 [facility] Basophils/100 WBC (Bld) 1.3 % 0-5 [facility] Basophils/100 WBC (Bld) 0.6 % 0-1 [facility] Determination of erythrocyte mean corpuscular volume (MCV)Ordered By: Lizet Linares on 02-18-2024 MCV (RBC) [Entitic vol] 89.1 fL 81-99 [facility] Erythrocyte distribution wid th ratioOrdered By: Hollymccaskillnatasha Linares on 02-18-2024 Erythrocyte distribution width (RBC) [Ratio] 13.2 % 11.6-14.6 [facility] Erythrocyte distribution wid th standard deviationOrdered By: Hollymccaskillnatasha Linares on 02-18-2024 Erythrocyte distribution width (RBC) [Entitic vol] 43.1 fL 35.1-43.9 [facility] Hematocrit Auto (Bld) [Volum e fraction]Ordered By: Lizet Linares on 02-18-2024 Hematocrit (Bld) [Volume fraction] 34.2 % 37-47 [facility] Immature granulocytes/100 WB C Auto (Bld)Ordered By: Lizet Linares on 02-18-2024 Immature granulocytes/100 WBC (Bld) 0.600 % 0.0-0.9 [facility] No Panel InformationOrdered By: Lizet Linares on 02-18-2024 28.6 pg 27.0-32.0 [facility] 32.2 g/dL 32-36 [facility] 337 K/mm3 150-450 [facility] 9.3 fl 6.2-12.0 [facility] 0 % 0-5 [facility] 45 mL/min >60 [facility] 55 mL/min >60 [facility] 14.8 RATIO 10-20 [facility] 26.0 mmol/L 21.0-32.0 [facility] RBC Auto (Bld) [#/Vol]Ordere d By: Lizet Linares on 02-18-2024 RBC (Bld) [#/Vol] 3.84 10*6/uL 4.2-5.[address] [facility] Serum or plasma calcium tai urement (mass/volume)Ordered By: Lizet Linares on 02-18-2024 Calcium [Mass/Vol] 8.8 mg/dL 8.5-10.1 [facility] Serum or plasma creatinine m easurement (mass/volume)Ordered By: Lizet Linares on 02-18-2024 Creatinine [Mass/Vol] 1.28 mg/dL 0.55-1.02 [facility] Serum or plasma urea nitroge n measurement (mass/volume)Ordered By: Lizet Linares on 02-18-2024 Urea nitrogen [Mass/Vol] 19 mg/dL 7-18 [facility] Thin prep Papanicolaou smear with manual screeningOrdered By: Lizet Linares on 02-18-2024 Thin prep Papanicolaou smear with manual screening 6 5-15 [facility] Absolute lymphocyte countOrd ered By: Lizet Linares on 02-11-2024 Lymphocytes Auto (Unsp spec) [#/Vol] 2.53 10*3/uL 0.83-4.51 [facility] Automated lymphocyte count a s percentage of total leukocytesOrdered By: Lizet Linares on 02-11-2024 Lymphocytes/100 WBC Auto (Unsp spec) 35.3 % 19-41 [facility] Basophil percentageOrdered B y: Lizet Linares on 02-11-2024 Basophil percentage 11.3 g/dL 12.0-15.[address] [facility] Basophil percentage 218 mg/dL 74-[address] [facility] Basophil percentage 136 mmol/L 136-[address] [facility] Basophil percentage 3.9 mmol/L 3.5-5.[address] [facility] Basophil percentage 103 mmol/L 98-[address] [facility] Basophils (Bld) [#/Vol] 7.2 10*3/uL 4.4-11.0 [facility] Basophils (Bld) [#/Vol] 3.9 10*3/uL 2.0-7.7 [facility] Basophils/100 WBC (Bld) 54.8 % 47-70 [facility] Basophils/100 WBC (Bld) 7.3 % 0-10 [facility] Basophils/100 WBC (Bld) 1.1 % 0-5 [facility] Basophils/100 WBC (Bld) 0.7 % 0-1 [facility] Determination of erythrocyte mean corpuscular volume (MCV)Ordered By: Lizet Linares on 02-11-2024 MCV (RBC) [Entitic vol] 88.9 fL 81-99 [facility] Erythrocyte distribution wid th ratioOrdered By: Lizet Linares on 02-11-2024 Erythrocyte distribution width (RBC) [Ratio] 13.3 % 11.6-14.6 [facility] Erythrocyte distribution wid th standard deviationOrdered By: Lizet Linares on 02-11-2024 Erythrocyte distribution width (RBC) [Entitic vol] 43.8 fL 35.1-43.9 [facility] Hematocrit Auto (Bld) [Volum e fraction]Ordered By: Lizet Linares on 02-11-2024 Hematocrit (Bld) [Volume fraction] 35.4 % 37-47 [facility] Immature granulocytes/100 WB C Auto (Bld)Ordered By: Lizet Linares on 02-11-2024 Immature granulocytes/100 WBC (Bld) 0.800 % 0.0-0.9 [facility] No Panel InformationOrdered By: Lizet Linares on 02-11-2024 28.4 pg 27.0-32.0 [facility] 31.9 g/dL 32-36 [facility] 430 K/mm3 150-450 [facility] 9.2 fl 6.2-12.0 [facility] 0 % 0-5 [facility] 59 mL/min >60 [facility] 72 mL/min >60 [facility] 18.8 RATIO 10-20 [facility] 26.0 mmol/L 21.0-32.0 [facility] RBC Auto (Bld) [#/Vol]Ordere d By: Lizet Linares on 02-11-2024 RBC (Bld) [#/Vol] 3.98 10*6/uL 4.2-5.[address] [facility] Serum or plasma calcium tai urement (mass/volume)Ordered By: Lziet Linares on 02-11-2024 Calcium [Mass/Vol] 8.5 mg/dL 8.5-10.1 [facility] Serum or plasma creatinine m easurement (mass/volume)Ordered By: Lizet Linares on 02-11-2024 Creatinine [Mass/Vol] 1.01 mg/dL 0.55-1.02 [facility] Serum or plasma urea nitroge n measurement (mass/volume)Ordered By: Lizet Linares on 02-11-2024 Urea nitrogen [Mass/Vol] 19 mg/dL 7-18 [facility] Thin prep Papanicolaou smear with manual screeningOrdered By: Lizet Linares on 02-11-2024 Thin prep Papanicolaou smear with manual screening 7 5-15 [facility] Bacteria identified Cx Nom ( U)Ordered By: Lizet Linares on 02-09-2024 Culture, urine Proteus mirabilis [facility] Bilirubin Test strip Ql (U)O rdered By: Lizet Linares on 02-09-2024 Bilirubin Ql (U) Negative Negative [facility] Ketones Test strip Ql (U)Ord ered By: Lizet Linares on 02-09-2024 Ketones Ql (U) Negative Negative [facility] Nitrite Test strip Ql (U)Ord ered By: Lizet Linares on 02-09-2024 Nitrite Ql (U) Positive Negative [facility] Protein Test strip Ql (U)Ord ered By: Lizet Linares on 02-09-2024 Protein Ql (U) 15 mg/dl Negative [facility] Urine blood detectionOrdered By: Lizet Linares on 02-09-2024 RBC Ql (U) 10 /ul Negative [facility] Urine clarityOrdered By: Bart Linares on 02-09-2024 Clarity (U) Clear Clear [facility] Urine color determinationOrd ered By: Lizet Linares on 02-09-2024 Color (U) Yellow Yellow [facility] Urine glucose detectionOrder ed By: Lizet Linares on 02-09-2024 Glucose Ql (U) 100 mg/dl Normal [facility] Urine leukocyte esterase det ection by dipstickOrdered By: Lizet Linares on 02-09-2024 Leukocyte esterase Test strip Ql (U) Negative Negative [facility] Urine pHOrdered By: Frank Linares on 02-09-2024 pH (U) 7.0 [pH] 5.0 - 8.0 [facility] Urine specific gravity measu rementOrdered By: Lizet Linares on 02-09-2024 Specific gravity (U) [Rel density] 1.010 1.002-1.03 0 [facility] Urine urobilinogen measureme ntOrdered By: Lizet Linares on 02-09-2024 Urobilinogen Ql (U) Normal mg/dl Normal [facility] Absolute lymphocyte countOrd ered By: Lizet Linares on 02-04-2024 Lymphocytes Auto (Unsp spec) [#/Vol] 3.24 10*3/uL 0.83-4.51 [facility] Automated lymphocyte count a s percentage of total leukocytesOrdered By: Lizet Linares on 02-04-2024 Lymphocytes/100 WBC Auto (Unsp spec) 57.7 % 19-41 [facility] Basophil percentageOrdered B y: Lizet Linares on 02-04-2024 Basophil percentage 11.8 g/dL 12.0-15.[address] [facility] Basophil percentage 81 mg/dL 74-[address] [facility] Basophil percentage 135 mmol/L 136-[address] [facility] Basophil percentage 4.2 mmol/L 3.5-5.[address] [facility] Basophil percentage 103 mmol/L 98-[address] [facility] Basophils (Bld) [#/Vol] 5.6 10*3/uL 4.4-11.0 [facility] Basophils (Bld) [#/Vol] 2.0 10*3/uL 2.0-7.7 [facility] Basophils/100 WBC (Bld) 35.6 % 47-70 [facility] Basophils/100 WBC (Bld) 5.5 % 0-10 [facility] Basophils/100 WBC (Bld) 0.5 % 0-1 [facility] Blood manual differential co mment interpretation (narrative result)Ordered By: Lizet Linares on 02-04-2024 Manual differential comment Major (Bld) [Interp] SCANNED [facility] Determination of erythrocyte mean corpuscular volume (MCV)Ordered By: Lizet Linares on 02-04-2024 MCV (RBC) [Entitic vol] 89.6 fL 81-99 [facility] Erythrocyte distribution wid th ratioOrdered By: Hollymccaskillnatasha Linares on 02-04-2024 Erythrocyte distribution width (RBC) [Ratio] 13.7 % 11.6-14.6 [facility] Erythrocyte distribution wid th standard deviationOrdered By: Lizet Linares on 02-04-2024 Erythrocyte distribution width (RBC) [Entitic vol] 45.0 fL 35.1-43.9 [facility] Hematocrit Auto (Bld) [Volum e fraction]Ordered By: Lizet Linares on 02-04-2024 Hematocrit (Bld) [Volume fraction] 37.2 % 37-47 [facility] Immature granulocytes/100 WB C Auto (Bld)Ordered By: Lizet Linares on 02-04-2024 Immature granulocytes/100 WBC (Bld) 0.200 % 0.0-0.9 [facility] No Panel InformationOrdered By: Lizet Linares on 02-04-2024 28.4 pg 27.0-32.0 [facility] 31.7 g/dL 32-36 [facility] 317 K/mm3 150-450 [facility] 9.3 fl 6.2-12.0 [facility] 0 % 0-5 [facility] 1+ [facility] 53 mL/min >60 [facility] 64 mL/min >60 [facility] 15.3 RATIO 10-20 [facility] 27.0 mmol/L 21.0-32.0 [facility] RBC Auto (Bld) [#/Vol]Ordere d By: Lizet Linares on 02-04-2024 RBC (Bld) [#/Vol] 4.15 10*6/uL 4.2-5.[address] [facility] Serum or plasma calcium tai urement (mass/volume)Ordered By: Lizet Linares on 02-04-2024 Calcium [Mass/Vol] 9.0 mg/dL 8.5-10.1 [facility] Serum or plasma creatinine m easurement (mass/volume)Ordered By: Lizet Linares on 02-04-2024 Creatinine [Mass/Vol] 1.11 mg/dL 0.55-1.02 [facility] Serum or plasma urea nitroge n measurement (mass/volume)Ordered By: Lizet Linares on 02-04-2024 Urea nitrogen [Mass/Vol] 17 mg/dL 7-18 [facility] Thin prep Papanicolaou smear with manual screeningOrdered By: Lizet Linares on 02-04-2024 Thin prep Papanicolaou smear with manual screening 5 5-15 [facility] Absolute lymphocyte countOrd ered By: Lizet Linares on 02-02-2024 Lymphocytes Auto (Unsp spec) [#/Vol] 2.22 10*3/uL 0.83-4.51 [facility] Automated lymphocyte count a s percentage of total leukocytesOrdered By: Lizet Linares on 02-02-2024 Lymphocytes/100 WBC Auto (Unsp spec) 43.9 % 19-41 [facility] Basophil percentageOrdered B y: Lizet Linares on 02-02-2024 Basophil percentage 11.0 g/dL 12.0-15.[address] [facility] Basophil percentage 95 mg/dL 74-[address] [facility] Basophil percentage 6.3 g/dL 6.4-8.[address] [facility] Basophil percentage 0.30 mg/dL 0.20-1.[address] [facility] Basophil percentage 138 mmol/L 136-[address] [facility] Basophil percentage 3.9 mmol/L 3.5-5.[address] [facility] Basophil percentage 107 mmol/L 98-[address] [facility] Basophils (Bld) [#/Vol] 5.1 10*3/uL 4.4-11.0 [facility] Basophils (Bld) [#/Vol] 2.4 10*3/uL 2.0-7.7 [facility] Basophils/100 WBC (Bld) 46.6 % 47-70 [facility] Basophils/100 WBC (Bld) 7.3 % 0-10 [facility] Basophils/100 WBC (Bld) 1.2 % 0-5 [facility] Basophils/100 WBC (Bld) 0.6 % 0-1 [facility] Determination of erythrocyte mean corpuscular volume (MCV)Ordered By: Lizet Linares on 02-02-2024 MCV (RBC) [Entitic vol] 90.0 fL 81-99 [facility] Erythrocyte distribution wid th ratioOrdered By: [facility] Taytal on 02-02-2024 Erythrocyte distribution width (RBC) [Ratio] 13.8 % 11.6-14.6 [facility] Erythrocyte distribution wid th standard deviationOrdered By: Hollymccaskillnatasha Linares on 02-02-2024 Erythrocyte distribution width (RBC) [Entitic vol] 45.3 fL 35.1-43.9 [facility] Hematocrit Auto (Bld) [Volum e fraction]Ordered By: Lizet Linares on 02-02-2024 Hematocrit (Bld) [Volume fraction] 34.3 % 37-47 [facility] Immature granulocytes/100 WB C Auto (Bld)Ordered By: Lizet Linares on 02-02-2024 Immature granulocytes/100 WBC (Bld) 0.400 % 0.0-0.9 [facility] No Panel InformationOrdered By: Lizet Linares on 02-02-2024 28.9 pg 27.0-32.0 [facility] 32.1 g/dL 32-36 [facility] 279 K/mm3 150-450 [facility] 9.4 fl 6.2-12.0 [facility] 0 % 0-5 [facility] 64 mL/min >60 [facility] 78 mL/min >60 [facility] 17.0 RATIO 10-20 [facility] 3.5 g/dL 2.2-4.2 [facility] 0.8 RATIO 0.9-2.4 [facility] 44 U/L 13-56 [facility] 26.0 mmol/L 21.0-32.0 [facility] RBC Auto (Bld) [#/Vol]Ordere d By: Lizet Linares on 02-02-2024 RBC (Bld) [#/Vol] 3.81 10*6/uL 4.2-5.[address] [facility] Serum or plasma calcium tai urement (mass/volume)Ordered By: Lizet Linares on 02-02-2024 Calcium [Mass/Vol] 8.7 mg/dL 8.5-10.1 [facility] Serum or plasma creatinine m easurement (mass/volume)Ordered By: Lizet Linares on 02-02-2024 Creatinine [Mass/Vol] 0.94 mg/dL 0.55-1.02 [facility] Serum or plasma urea nitroge n measurement (mass/volume)Ordered By: Lizet Linares on 02-02-2024 Urea nitrogen [Mass/Vol] 16 mg/dL 7-18 [facility] Thin prep Papanicolaou smear with manual screeningOrdered By: Lizet Linares on 02-02-2024 Thin prep Papanicolaou smear with manual screening 2.8 g/dL 3.2-5.0 [facility] Thin prep Papanicolaou smear with manual screening 42 U/L 15-37 [facility] Thin prep Papanicolaou smear with manual screening 5 5-15 [facility] Absolute lymphocyte countOrd ered By: Lizet Linares on 01-28-2024 Lymphocytes Auto (Unsp spec) [#/Vol] 2.40 10*3/uL 0.83-4.51 [facility] Automated lymphocyte count a s percentage of total leukocytesOrdered By: Lizet Linares on 01-28-2024 Lymphocytes/100 WBC Auto (Unsp spec) 43.0 % 19-41 [facility] Basophil percentageOrdered B y: Lizet Linares on 01-28-2024 Basophil percentage 11.4 g/dL 12.0-15.[address] [facility] Basophil percentage 275 mg/dL 74-[address] [facility] Basophil percentage 137 mmol/L 136-[address] [facility] Basophil percentage 4.0 mmol/L 3.5-5.[address] [facility] Basophil percentage 102 mmol/L 98-[address] [facility] Basophils (Bld) [#/Vol] 5.6 10*3/uL 4.4-11.0 [facility] Basophils (Bld) [#/Vol] 2.6 10*3/uL 2.0-7.7 [facility] Basophils/100 WBC (Bld) 47.2 % 47-70 [facility] Basophils/100 WBC (Bld) 6.3 % 0-10 [facility] Basophils/100 WBC (Bld) 2.3 % 0-5 [facility] Basophils/100 WBC (Bld) 0.7 % 0-1 [facility] Determination of erythrocyte mean corpuscular volume (MCV)Ordered By: Lizet Linares on 01-28-2024 MCV (RBC) [Entitic vol] 90.2 fL 81-99 [facility] Erythrocyte distribution wid th ratioOrdered By: Lizet Linares on 01-28-2024 Erythrocyte distribution width (RBC) [Ratio] 13.7 % 11.6-14.6 [facility] Erythrocyte distribution wid th standard deviationOrdered By: Lizet Linares on 01-28-2024 Erythrocyte distribution width (RBC) [Entitic vol] 44.7 fL 35.1-43.9 [facility] Hematocrit Auto (Bld) [Volum e fraction]Ordered By: Lizet Linares on 01-28-2024 Hematocrit (Bld) [Volume fraction] 34.2 % 37-47 [facility] Immature granulocytes/100 WB C Auto (Bld)Ordered By: Lizet Linares on 01-28-2024 Immature granulocytes/100 WBC (Bld) 0.500 % 0.0-0.9 [facility] No Panel InformationOrdered By: Lizet Linares on 01-28-2024 30.1 pg 27.0-32.0 [facility] 33.3 g/dL 32-36 [facility] 298 K/mm3 150-450 [facility] 9.1 fl 6.2-12.0 [facility] 0 % 0-5 [facility] 53 mL/min >60 [facility] 64 mL/min >60 [facility] 16.1 RATIO 10-20 [facility] 28.0 mmol/L 21.0-32.0 [facility] RBC Auto (Bld) [#/Vol]Ordere d By: Lizet Linares on 01-28-2024 RBC (Bld) [#/Vol] 3.79 10*6/uL 4.2-5.[address] [facility] Serum or plasma calcium tai urement (mass/volume)Ordered By: Lizet Linares on 01-28-2024 Calcium [Mass/Vol] 8.8 mg/dL 8.5-10.1 [facility] Serum or plasma creatinine m easurement (mass/volume)Ordered By: Lizet Linares on 01-28-2024 Creatinine [Mass/Vol] 1.12 mg/dL 0.55-1.02 [facility] Serum or plasma urea nitroge n measurement (mass/volume)Ordered By: Lizet Linares on 01-28-2024 Urea nitrogen [Mass/Vol] 18 mg/dL 7-18 [facility] Thin prep Papanicolaou smear with manual screeningOrdered By: Lizet Linares on 01-28-2024 Thin prep Papanicolaou smear with manual screening 7 5-15 [facility] Absolute lymphocyte countOrd ered By: Lizet Linares on 01-21-2024 Lymphocytes Auto (Unsp spec) [#/Vol] 2.61 10*3/uL 0.83-4.51 [facility] Automated lymphocyte count a s percentage of total leukocytesOrdered By: Lizet Linares on 01-21-2024 Lymphocytes/100 WBC Auto (Unsp spec) 38.7 % 19-41 [facility] Basophil percentageOrdered B y: Lizet Linares on 01-21-2024 Basophil percentage 10.7 g/dL 12.0-15.[address] [facility] Basophil percentage 138 mg/dL 74-[address] [facility] Basophil percentage 139 mmol/L 136-[address] [facility] Basophil percentage 4.5 mmol/L 3.5-5.[address] [facility] Basophil percentage 106 mmol/L 98-[address] [facility] Basophils (Bld) [#/Vol] 6.8 10*3/uL 4.4-11.0 [facility] Basophils (Bld) [#/Vol] 3.6 10*3/uL 2.0-7.7 [facility] Basophils/100 WBC (Bld) 52.9 % 47-70 [facility] Basophils/100 WBC (Bld) 5.2 % 0-10 [facility] Basophils/100 WBC (Bld) 2.5 % 0-5 [facility] Basophils/100 WBC (Bld) 0.4 % 0-1 [facility] Determination of erythrocyte mean corpuscular volume (MCV)Ordered By: Lizet Linares on 01-21-2024 MCV (RBC) [Entitic vol] 91.7 fL 81-99 [facility] Erythrocyte distribution wid th ratioOrdered By: [facility] Taytal on 01-21-2024 Erythrocyte distribution width (RBC) [Ratio] 13.9 % 11.6-14.6 [facility] Erythrocyte distribution wid th standard deviationOrdered By: Juniechristamccaskillnatasha Germantal on 01-21-2024 Erythrocyte distribution width (RBC) [Entitic vol] 47.2 fL 35.1-43.9 [facility] Hematocrit Auto (Bld) [Volum e fraction]Ordered By: [facility] Linares on 01-21-2024 Hematocrit (Bld) [Volume fraction] 33.1 % 37-47 [facility] Immature granulocytes/100 WB C Auto (Bld)Ordered By: Lizet Linares on 01-21-2024 Immature granulocytes/100 WBC (Bld) 0.300 % 0.0-0.9 [facility] No Panel InformationOrdered By: Lizet Linares on 01-21-2024 29.6 pg 27.0-32.0 [facility] 32.3 g/dL 32-36 [facility] 321 K/mm3 150-450 [facility] 9.1 fl 6.2-12.0 [facility] 0 % 0-5 [facility] 50 mL/min >60 [facility] 60 mL/min >60 [facility] 12.7 RATIO 10-20 [facility] 27.0 mmol/L 21.0-32.0 [facility] RBC Auto (Bld) [#/Vol]Ordere d By: Lizet Linares on 01-21-2024 RBC (Bld) [#/Vol] 3.61 10*6/uL 4.2-5.[address] [facility] Serum or plasma calcium tai urement (mass/volume)Ordered By: Lizet Linares on 01-21-2024 Calcium [Mass/Vol] 8.9 mg/dL 8.5-10.1 [facility] Serum or plasma creatinine m easurement (mass/volume)Ordered By: Lizet Linares on 01-21-2024 Creatinine [Mass/Vol] 1.18 mg/dL 0.55-1.02 [facility] Serum or plasma urea nitroge n measurement (mass/volume)Ordered By: Lizet Linares on 01-21-2024 Urea nitrogen [Mass/Vol] 15 mg/dL 7-18 [facility] Thin prep Papanicolaou smear with manual screeningOrdered By: Lizet Linares on 01-21-2024 Thin prep Papanicolaou smear with manual screening 6 5-15 [facility] Absolute lymphocyte countOrd ered By: Ellis Peterson on 01-20-2024 Lymphocytes Auto (Unsp spec) [#/Vol] 2.86 10*3/uL 0.83-4.51 [facility] Automated lymphocyte count a s percentage of total leukocytesOrdered By: Ellis Peterson on 01-20-2024 Lymphocytes/100 WBC Auto (Unsp spec) 34.1 % 19-41 [facility] Basophil percentageOrdered B y: Ellis Peterson on 01-20-2024 Basophil percentage 11.3 g/dL 12.0-15.[address] [facility] Basophil percentage 83 mg/dL 74-[address] [facility] Basophil percentage 139 mmol/L 136-[address] [facility] Basophil percentage 4.3 mmol/L 3.5-5.[address] [facility] Basophil percentage 106 mmol/L 98-[address] [facility] Basophils (Bld) [#/Vol] 8.4 10*3/uL 4.4-11.0 [facility] Basophils (Bld) [#/Vol] 4.9 10*3/uL 2.0-7.7 [facility] Basophils/100 WBC (Bld) 58.1 % 47-70 [facility] Basophils/100 WBC (Bld) 5.5 % 0-10 [facility] Basophils/100 WBC (Bld) 1.4 % 0-5 [facility] Basophils/100 WBC (Bld) 0.5 % 0-1 [facility] Determination of erythrocyte mean corpuscular volume (MCV)Ordered By: Ellis Peterson on 01-20-2024 MCV (RBC) [Entitic vol] 92.2 fL 81-99 [facility] Erythrocyte distribution wid th ratioOrdered By: Ellis Peterson on 01-20-2024 Erythrocyte distribution width (RBC) [Ratio] 14.0 % 11.6-14.6 [facility] Erythrocyte distribution wid th standard deviationOrdered By: Ellis Peterson on 01-20-2024 Erythrocyte distribution width (RBC) [Entitic vol] 47.4 fL 35.1-43.9 [facility] Hematocrit Auto (Bld) [Volum e fraction]Ordered By: Ellis Peterson on 01-20-2024 Hematocrit (Bld) [Volume fraction] 35.6 % 37-47 [facility] Immature granulocytes/100 WB C Auto (Bld)Ordered By: Ellis Peterson on 01-20-2024 Immature granulocytes/100 WBC (Bld) 0.400 % 0.0-0.9 [facility] No Panel InformationOrdered By: Ellis Peterson on 01-20-2024 21 pg/mL 3.0-54.0 [facility] 29.3 pg 27.0-32.0 [facility] 31.7 g/dL 32-36 [facility] 379 K/mm3 150-450 [facility] 9.0 fl 6.2-12.0 [facility] 0 % 0-5 [facility] 66 mL/min >60 [facility] 79 mL/min >60 [facility] 62.41 ml/min [facility] 14.0 RATIO 10-20 [facility] 28.0 mmol/L 21.0-32.0 [facility] RBC Auto (Bld) [#/Vol]Ordere d By: Ellis Peterson on 01-20-2024 RBC (Bld) [#/Vol] 3.86 10*6/uL 4.2-5.[address] [facility] Serum or plasma calcium tai urement (mass/volume)Ordered By: Ellis Peterson on 01-20-2024 Calcium [Mass/Vol] 9.2 mg/dL 8.5-10.1 [facility] Serum or plasma creatinine m easurement (mass/volume)Ordered By: Ellis Peterson on 01-20-2024 Creatinine [Mass/Vol] 0.93 mg/dL 0.55-1.02 [facility] Serum or plasma urea nitroge n measurement (mass/volume)Ordered By: Ellis Peterson on 01-20-2024 Urea nitrogen [Mass/Vol] 13 mg/dL 7-18 [facility] Thin prep Papanicolaou smear with manual screeningOrdered By: Ellis Peterson on 01-20-2024 Thin prep Papanicolaou smear with manual screening 5 5-15 [facility] Clostridioides difficile nuc leic acid assay by PCROrdered By: Lizet Linares on 01-19-2024 C. difficile DNA ZHANE+probe Ql (Unsp spec) [facility] Absolute lymphocyte countOrd ered By: Lizet Linares on 01-17-2024 Lymphocytes Auto (Unsp spec) [#/Vol] 2.59 10*3/uL 0.83-4.51 [facility] Automated lymphocyte count a s percentage of total leukocytesOrdered By: Lizet Linares on 01-17-2024 Lymphocytes/100 WBC Auto (Unsp spec) 36.9 % 19-41 [facility] Bacteria identified Cx Nom ( U)Ordered By: Lizet Linares on 01-17-2024 Culture, urine Serratia fonticola [facility] Basophil percentageOrdered B y: Lizet Linares on 01-17-2024 Basophil percentage 10.2 g/dL 12.0-15.[address] [facility] Basophil percentage 199 mg/dL 74-[address] [facility] Basophil percentage 6.0 g/dL 6.4-8.[address] [facility] Basophil percentage 0.20 mg/dL 0.20-1.[address] [facility] Basophil percentage 136 mmol/L 136-[address] [facility] Basophil percentage 3.8 mmol/L 3.5-5.[address] [facility] Basophil percentage 103 mmol/L 98-[address] [facility] Basophils (Bld) [#/Vol] 7.0 10*3/uL 4.4-11.0 [facility] Basophils (Bld) [#/Vol] 3.9 10*3/uL 2.0-7.7 [facility] Basophils/100 WBC (Bld) 55.5 % 47-70 [facility] Basophils/100 WBC (Bld) 5.1 % 0-10 [facility] Basophils/100 WBC (Bld) 1.4 % 0-5 [facility] Basophils/100 WBC (Bld) 0.7 % 0-1 [facility] Basophil percentage 0 SEEN /hpf 0-5 [facility] Bilirubin Test strip Ql (U)O rdered By: Lizet Linares on 01-17-2024 Bilirubin Ql (U) Negative Negative [facility] Determination of erythrocyte mean corpuscular volume (MCV)Ordered By: Lizet Linares on 01-17-2024 MCV (RBC) [Entitic vol] 91.3 fL 81-99 [facility] Erythrocyte distribution wid th ratioOrdered By: Lizet Linares on 01-17-2024 Erythrocyte distribution width (RBC) [Ratio] 13.6 % 11.6-14.6 [facility] Erythrocyte distribution wid th standard deviationOrdered By: Lizet Linares on 01-17-2024 Erythrocyte distribution width (RBC) [Entitic vol] 45.4 fL 35.1-43.9 [facility] Hematocrit Auto (Bld) [Volum e fraction]Ordered By: Lizet Linares on 01-17-2024 Hematocrit (Bld) [Volume fraction] 32.4 % 37-47 [facility] Immature granulocytes/100 WB C Auto (Bld)Ordered By: Lizet Linares on 01-17-2024 Immature granulocytes/100 WBC (Bld) 0.400 % 0.0-0.9 [facility] Ketones Test strip Ql (U)Ord ered By: Lizet Linares on 01-17-2024 Ketones Ql (U) Negative Negative [facility] Mucus LM Ql (Urine sed)Order ed By: Lizet Linares on 01-17-2024 Mucus Ql (Urine sed) 0 SEEN /hpf [facility] Nitrite Test strip Ql (U)Ord ered By: Lizet Linares on 01-17-2024 Nitrite Ql (U) Negative Negative [facility] No Panel InformationOrdered By: Lizet Linares on 01-17-2024 28.7 pg 27.0-32.0 [facility] 31.5 g/dL 32-36 [facility] 339 K/mm3 150-450 [facility] 9.2 fl 6.2-12.0 [facility] 0 % 0-5 [facility] 59 mL/min >60 [facility] 71 mL/min >60 [facility] 15.7 RATIO 10-20 [facility] 3.3 g/dL 2.2-4.2 [facility] 0.8 RATIO 0.9-2.4 [facility] 49 U/L 45-117 [facility] 30 U/L 13-56 [facility] 27.0 mmol/L 21.0-32.0 [facility] 0 SEEN /hpf 0-5 [facility] Protein Test strip Ql (U)Ord ered By: Lizet Linares on 01-17-2024 Protein Ql (U) Negative Negative [facility] RBC Auto (Bld) [#/Vol]Ordere d By: Lizet Linares on 01-17-2024 RBC (Bld) [#/Vol] 3.55 10*6/uL 4.2-5.[address] [facility] Serum or plasma calcium tai urement (mass/volume)Ordered By: Lizet Linares on 01-17-2024 Calcium [Mass/Vol] 8.0 mg/dL 8.5-10.1 [facility] Serum or plasma creatinine m easurement (mass/volume)Ordered By: Lizet Linares on 01-17-2024 Creatinine [Mass/Vol] 1.02 mg/dL 0.55-1.02 [facility] Serum or plasma urea nitroge n measurement (mass/volume)Ordered By: Lizet Linares on 01-17-2024 Urea nitrogen [Mass/Vol] 16 mg/dL 7-18 [facility] Squamous epithelial cells de tection in urine sediment by light microscopyOrdered By: Lizet Linares on 01-17-2024 Epithelial cells.squamous LM Ql (Urine sed) 0 SEEN /hpf 5-10 [facility] Thin prep Papanicolaou smear with manual screeningOrdered By: Lizet Linares on 01-17-2024 Thin prep Papanicolaou smear with manual screening 2.7 g/dL 3.2-5.0 [facility] Thin prep Papanicolaou smear with manual screening 19 U/L 15-37 [facility] Thin prep Papanicolaou smear with manual screening 6 5-15 [facility] Urine blood detectionOrdered By: Lizet Linares on 01-17-2024 RBC Ql (U) Negative Negative [facility] Urine clarityOrdered By: Bart Linares on 01-17-2024 Clarity (U) Clear Clear [facility] Urine color determinationOrd ered By: Lizet Linares on 01-17-2024 Color (U) Yellow Yellow [facility] Urine glucose detectionOrder ed By: Lizet Linares on 01-17-2024 Glucose Ql (U) 100 mg/dl Normal [facility] Urine leukocyte esterase det ection by dipstickOrdered By: Lizet Linares on 01-17-2024 Leukocyte esterase Test strip Ql (U) Negative Negative [facility] Urine pHOrdered By: Frank Linares on 01-17-2024 pH (U) 6.0 [pH] 5.0 - 8.0 [facility] Urine sediment bacteria coun t by microscopy (number/high power field)Ordered By: Lizet Crossjntal on 01-17-2024 Bacteria LM.HPF (Urine sed) [#/Area] 0 /[HPF] None Seen [facility] Urine specific gravity measu rementOrdered By: Hollyjanellnatasha Crossjntal on 01-17-2024 Specific gravity (U) [Rel density] 1.015 1.002-1.03 0 [facility] Urine urobilinogen measureme ntOrdered By: Hollyjanellnatasha Crossjntal on 01-17-2024 Urobilinogen Ql (U) Normal mg/dl Normal [facility] Absolute lymphocyte countOrd ered By: Hollyjanellnatasha Crossjntal on 01-14-2024 Lymphocytes Auto (Unsp spec) [#/Vol] 2.49 10*3/uL 0.83-4.51 [facility] Automated lymphocyte count a s percentage of total leukocytesOrdered By: Hollyjanellnatasha Crossjntal on 01-14-2024 Lymphocytes/100 WBC Auto (Unsp spec) 32.0 % 19-41 [facility] Basophil percentageOrdered B y: Lizet Portertal on 01-14-2024 Basophil percentage 10.1 g/dL 12.0-15.[address] [facility] Basophil percentage 268 mg/dL 74-[address] [facility] Basophil percentage 136 mmol/L 136-[address] [facility] Basophil percentage 4.3 mmol/L 3.5-5.[address] [facility] Basophil percentage 104 mmol/L 98-[address] [facility] Basophils (Bld) [#/Vol] 7.8 10*3/uL 4.4-11.0 [facility] Basophils (Bld) [#/Vol] 4.8 10*3/uL 2.0-7.7 [facility] Basophils/100 WBC (Bld) 61.1 % 47-70 [facility] Basophils/100 WBC (Bld) 5.1 % 0-10 [facility] Basophils/100 WBC (Bld) 1.0 % 0-5 [facility] Basophils/100 WBC (Bld) 0.4 % 0-1 [facility] Determination of erythrocyte mean corpuscular volume (MCV)Ordered By: Lizet Linares on 01-14-2024 MCV (RBC) [Entitic vol] 90.9 fL 81-99 [facility] Erythrocyte distribution wid th ratioOrdered By: Lizet Linares on 01-14-2024 Erythrocyte distribution width (RBC) [Ratio] 13.6 % 11.6-14.6 [facility] Erythrocyte distribution wid th standard deviationOrdered By: Lizet Linares on 01-14-2024 Erythrocyte distribution width (RBC) [Entitic vol] 45.1 fL 35.1-43.9 [facility] Hematocrit Auto (Bld) [Volum e fraction]Ordered By: Lizet Linares on 01-14-2024 Hematocrit (Bld) [Volume fraction] 31.8 % 37-47 [facility] Immature granulocytes/100 WB C Auto (Bld)Ordered By: Lizet Linares on 01-14-2024 Immature granulocytes/100 WBC (Bld) 0.400 % 0.0-0.9 [facility] No Panel InformationOrdered By: Lizet Linares on 01-14-2024 28.9 pg 27.0-32.0 [facility] 31.8 g/dL 32-36 [facility] 355 K/mm3 150-450 [facility] 9.2 fl 6.2-12.0 [facility] 0 % 0-5 [facility] 55 mL/min >60 [facility] 66 mL/min >60 [facility] 14.8 RATIO 10-20 [facility] 27.0 mmol/L 21.0-32.0 [facility] RBC Auto (Bld) [#/Vol]Ordere d By: Lizet Linares on 01-14-2024 RBC (Bld) [#/Vol] 3.50 10*6/uL 4.2-5.[address] [facility] Serum or plasma calcium tai urement (mass/volume)Ordered By: Lizet Linares on 01-14-2024 Calcium [Mass/Vol] 8.5 mg/dL 8.5-10.1 [facility] Serum or plasma creatinine m easurement (mass/volume)Ordered By: Lizet Linares on 01-14-2024 Creatinine [Mass/Vol] 1.08 mg/dL 0.55-1.02 [facility] Serum or plasma urea nitroge n measurement (mass/volume)Ordered By: Lizet Linares on 01-14-2024 Urea nitrogen [Mass/Vol] 16 mg/dL 7-18 [facility] Thin prep Papanicolaou smear with manual screeningOrdered By: christamccaskillnatasha Linares on 01-14-2024 Thin prep Papanicolaou smear with manual screening 5 5-15 [facility] Absolute lymphocyte countOrd ered By: Lizet Linares on 01-12-2024 Lymphocytes Auto (Unsp spec) [#/Vol] 2.91 10*3/uL 0.83-4.51 [facility] Automated lymphocyte count a s percentage of total leukocytesOrdered By: Lizet Linares on 01-12-2024 Lymphocytes/100 WBC Auto (Unsp spec) 31.8 % 19-41 [facility] Basophil percentageOrdered B y: Lizet Linares on 01-12-2024 Basophil percentage 11.1 g/dL 12.0-15.[address] [facility] Basophil percentage 215 mg/dL 74-[address] [facility] Basophil percentage 136 mmol/L 136-[address] [facility] Basophil percentage 4.2 mmol/L 3.5-5.[address] [facility] Basophil percentage 103 mmol/L 98-[address] [facility] Basophils (Bld) [#/Vol] 9.2 10*3/uL 4.4-11.0 [facility] Basophils (Bld) [#/Vol] 5.7 10*3/uL 2.0-7.7 [facility] Basophils/100 WBC (Bld) 61.9 % 47-70 [facility] Basophils/100 WBC (Bld) 4.6 % 0-10 [facility] Basophils/100 WBC (Bld) 0.8 % 0-5 [facility] Basophils/100 WBC (Bld) 0.4 % 0-1 [facility] Determination of erythrocyte mean corpuscular volume (MCV)Ordered By: Lizet Linares on 01-12-2024 MCV (RBC) [Entitic vol] 90.4 fL 81-99 [facility] Erythrocyte distribution wid th ratioOrdered By: Lizet Linares on 01-12-2024 Erythrocyte distribution width (RBC) [Ratio] 13.5 % 11.6-14.6 [facility] Erythrocyte distribution wid th standard deviationOrdered By: Lizet Linares on 01-12-2024 Erythrocyte distribution width (RBC) [Entitic vol] 44.3 fL 35.1-43.9 [facility] Hematocrit Auto (Bld) [Volum e fraction]Ordered By: Lizet Linares on 01-12-2024 Hematocrit (Bld) [Volume fraction] 34.7 % 37-47 [facility] Immature granulocytes/100 WB C Auto (Bld)Ordered By: Lizet Linares on 01-12-2024 Immature granulocytes/100 WBC (Bld) 0.500 % 0.0-0.9 [facility] No Panel InformationOrdered By: Lizet Linares on 01-12-2024 28.9 pg 27.0-32.0 [facility] 32.0 g/dL 32-36 [facility] 439 K/mm3 150-450 [facility] 9.5 fl 6.2-12.0 [facility] 0 % 0-5 [facility] 59 mL/min >60 [facility] 72 mL/min >60 [facility] 21.8 RATIO 10-20 [facility] 26.0 mmol/L 21.0-32.0 [facility] RBC Auto (Bld) [#/Vol]Ordere d By: Lizet Linares on 01-12-2024 RBC (Bld) [#/Vol] 3.84 10*6/uL 4.2-5.[address] [facility] Serum or plasma calcium tai urement (mass/volume)Ordered By: Lizet Linares on 01-12-2024 Calcium [Mass/Vol] 8.7 mg/dL 8.5-10.1 [facility] Serum or plasma creatinine m easurement (mass/volume)Ordered By: Hollyjanellnatasha Linares on 01-12-2024 Creatinine [Mass/Vol] 1.01 mg/dL 0.55-1.02 [facility] Serum or plasma urea nitroge n measurement (mass/volume)Ordered By: Lizet Linares on 01-12-2024 Urea nitrogen [Mass/Vol] 22 mg/dL 7-18 [facility] Thin prep Papanicolaou smear with manual screeningOrdered By: Lizet Linares on 01-12-2024 Thin prep Papanicolaou smear with manual screening 7 5- [facility] Absolute lymphocyte countOrd ered By: Lizet Linares on 01-07-2024 Lymphocytes Auto (Unsp spec) [#/Vol] 2.39 10*3/uL 0.83-4.51 [facility] Automated lymphocyte count a s percentage of total leukocytesOrdered By: Lizet Linares on 01-07-2024 Lymphocytes/100 WBC Auto (Unsp spec) 33.3 % 19-41 [facility] Basophil percentageOrdered B y: Lizet Linares on 01-07-2024 Basophil percentage 10.5 g/dL 12.0-15.[address] [facility] Basophil percentage 350 mg/dL 74-[address] [facility] Basophil percentage 137 mmol/L 136-[address] [facility] Basophil percentage 3.8 mmol/L 3.5-5.[address] [facility] Basophil percentage 103 mmol/L 98-[address] [facility] Basophils (Bld) [#/Vol] 7.2 10*3/uL 4.4-11.0 [facility] Basophils (Bld) [#/Vol] 4.3 10*3/uL 2.0-7.7 [facility] Basophils/100 WBC (Bld) 59.4 % 47-70 [facility] Basophils/100 WBC (Bld) 5.6 % 0-10 [facility] Basophils/100 WBC (Bld) 0.8 % 0-5 [facility] Basophils/100 WBC (Bld) 0.3 % 0-1 [facility] Determination of erythrocyte mean corpuscular volume (MCV)Ordered By: Lizet Linares on 01-07-2024 MCV (RBC) [Entitic vol] 90.6 fL 81-99 [facility] Erythrocyte distribution wid th ratioOrdered By: Lizet Linares on 01-07-2024 Erythrocyte distribution width (RBC) [Ratio] 13.6 % 11.6-14.6 [facility] Erythrocyte distribution wid th standard deviationOrdered By: Lizet Linares on 01-07-2024 Erythrocyte distribution width (RBC) [Entitic vol] 44.8 fL 35.1-43.9 [facility] Hematocrit Auto (Bld) [Volum e fraction]Ordered By: Lizet Linares on 01-07-2024 Hematocrit (Bld) [Volume fraction] 31.8 % 37-47 [facility] Immature granulocytes/100 WB C Auto (Bld)Ordered By: Hollymccaskillnatasha Linares on 01-07-2024 Immature granulocytes/100 WBC (Bld) 0.600 % 0.0-0.9 [facility] No Panel InformationOrdered By: Hollymccaskillnatasha Linares on 01-07-2024 29.9 pg 27.0-32.0 [facility] 33.0 g/dL 32-36 [facility] 310 K/mm3 150-450 [facility] 9.3 fl 6.2-12.0 [facility] 0 % 0-5 [facility] 59 mL/min >60 [facility] 71 mL/min >60 [facility] 22.5 RATIO 10-20 [facility] 27.0 mmol/L 21.0-32.0 [facility] RBC Auto (Bld) [#/Vol]Ordere d By: Lizet Linares on 01-07-2024 RBC (Bld) [#/Vol] 3.51 10*6/uL 4.2-5.[address] [facility] Serum or plasma calcium tai urement (mass/volume)Ordered By: Lizet Linares on 01-07-2024 Calcium [Mass/Vol] 8.3 mg/dL 8.5-10.1 [facility] Serum or plasma creatinine m easurement (mass/volume)Ordered By: Lizet Linares on 01-07-2024 Creatinine [Mass/Vol] 1.02 mg/dL 0.55-1.02 [facility] Serum or plasma urea nitroge n measurement (mass/volume)Ordered By: Lizet Linares on 01-07-2024 Urea nitrogen [Mass/Vol] 23 mg/dL 7-18 [facility] Thin prep Papanicolaou smear with manual screeningOrdered By: Hollymccaskillnatasha Linares on 01-07-2024 Thin prep Papanicolaou smear with manual screening 7 5-15 [facility] Basophil percentageOrdered B y: Ana Rivera on 01-05-2024 Basophil percentage 10.6 g/dL 12.0-15.[address] [facility] Basophil percentage 237 mg/dL 74-[address] [facility] Basophil percentage 136 mmol/L 136-[address] [facility] Basophil percentage 3.9 mmol/L 3.5-5.[address] [facility] Basophil percentage 101 mmol/L 98-[address] [facility] Basophils (Bld) [#/Vol] 10.0 10*3/uL 4.4-11.0 [facility] COVID-19 virus antigen assay Ordered By: Ana Rivera on 01-05-2024 SARS-CoV-2 (COVID-19) Ag IA.rapid Ql (Resp) [facility] Determination of erythrocyte mean corpuscular volume (MCV)Ordered By: Ana Rivera on 01-05-2024 MCV (RBC) [Entitic vol] 91.6 fL 81-99 [facility] Erythrocyte distribution wid th ratioOrdered By: Ana Rivera on 01-05-2024 Erythrocyte distribution width (RBC) [Ratio] 13.4 % 11.6-14.6 [facility] Erythrocyte distribution wid th standard deviationOrdered By: Ana Rivera on 01-05-2024 Erythrocyte distribution width (RBC) [Entitic vol] 45.5 fL 35.1-43.9 [facility] Hematocrit Auto (Bld) [Volum e fraction]Ordered By: Ana Rivera on 01-05-2024 Hematocrit (Bld) [Volume fraction] 32.7 % 37-47 [facility] No Panel InformationOrdered By: Ana Rivera on 01-05-2024 29.7 pg 27.0-32.0 [facility] 32.4 g/dL 32-36 [facility] 297 K/mm3 150-450 [facility] 9.3 fl 6.2-12.0 [facility] 60 mL/min >60 [facility] 73 mL/min >60 [facility] 54.57 ml/min [facility] 33.0 RATIO 10-20 [facility] 28.0 mmol/L 21.0-32.0 [facility] RBC Auto (Bld) [#/Vol]Ordere d By: Ana Rivera on 01-05-2024 RBC (Bld) [#/Vol] 3.57 10*6/uL 4.2-5.[address] [facility] Serum or plasma calcium tai urement (mass/volume)Ordered By: Ana Rivera on 01-05-2024 Calcium [Mass/Vol] 8.6 mg/dL 8.5-10.1 [facility] Serum or plasma creatinine m easurement (mass/volume)Ordered By: Ana Rivera on 01-05-2024 Creatinine [Mass/Vol] 1.00 mg/dL 0.55-1.02 [facility] Serum or plasma urea nitroge n measurement (mass/volume)Ordered By: Ana Rivera on 01-05-2024 Urea nitrogen [Mass/Vol] 33 mg/dL 7-18 [facility] Thin prep Papanicolaou smear with manual screeningOrdered By: Ana Rivera on 01-05-2024 Thin prep Papanicolaou smear with manual screening 138 mg/dL 74-106 [facility] Thin prep Papanicolaou smear with manual screening 7 5-15 [facility] Absolute lymphocyte countOrd ered By: Ana Rivera on 01-04-2024 Lymphocytes Auto (Unsp spec) [#/Vol] 2.79 10*3/uL 0.83-4.51 [facility] Automated lymphocyte count a s percentage of total leukocytesOrdered By: Ana Rivera on 01-04-2024 Lymphocytes/100 WBC Auto (Unsp spec) 31.0 % 19-41 [facility] Basophil percentageOrdered B y: Ana Rivera on 01-04-2024 Basophils (Bld) [#/Vol] 5.5 10*3/uL 2.0-7.7 [facility] Basophils/100 WBC (Bld) 60.6 % 47-70 [facility] Basophils/100 WBC (Bld) 5.1 % 0-10 [facility] Basophils/100 WBC (Bld) 1.3 % 0-5 [facility] Basophils/100 WBC (Bld) 0.4 % 0-1 [facility] Immature granulocytes/100 WB C Auto (Bld)Ordered By: Ana Rivera on 01-04-2024 Immature granulocytes/100 WBC (Bld) 1.600 % 0.0-0.9 [facility] No Panel InformationOrdered By: Ana Rivera on 01-04-2024 0 % 0-5 [facility] Basophil percentageOrdered B y: Chavez Alcala on 01-03-2024 Chloride [Moles/Vol] 103 mmol/L 98-107 [facility] Glucose [Mass/Vol] 403 mg/dL 74-106 [facility] Comment on above: Glucose result great er than or equal to 200 mg/dLsuggests DIABETES MELLITUS per A.D.A. criteria. Hemoglobin (Bld) [Mass/Vol] 10.3 g/dL 12.0-15.0 [facility] Potassium [Moles/Vol] 4.5 mmol/L 3.5-5.1 [facility] Sodium [Moles/Vol] 137 mmol/L 136-145 [facility] WBC (Bld) [#/Vol] 9.3 10*3/uL 4.4-11.0 [facility] Determination of erythrocyte mean corpuscular volume (MCV)Ordered By: Chavez Alcala on 01-03-2024 MCV (RBC) [Entitic vol] 90.9 fL 81-99 [facility] Erythrocyte distribution wid th ratioOrdered By: hCavez Alcala on 01-03-2024 Erythrocyte distribution width (RBC) [Ratio] 13.6 % 11.6-14.6 [facility] Erythrocyte distribution wid th standard deviationOrdered By: Chavez Alcala on 01-03-2024 Erythrocyte distribution width (RBC) [Entitic vol] 45.0 fL 35.1-43.9 [facility] Hematocrit Auto (Bld) [Volum e fraction]Ordered By: Chavez Alcala on 01-03-2024 Hematocrit (Bld) [Volume fraction] 32.1 % 37-47 [facility] Laboratory - Chemistry and C hemistry - challengeOrdered By: Chavez Alcala on 01-03-2024 CO2 [Moles/Vol] 26.0 mmol/L 21.0-32.0 [facility] Urea nitrogen/Creatinine [Mass ratio] 32.7 mg/mg 10-20 [facility] Laboratory - Hematology and Cell countsOrdered By: Chavez Alcala on 01-03-2024 MCH (RBC) [Entitic mass] 29.2 pg 27.0-32.0 [facility] MCHC (RBC) [Mass/Vol] 32.1 g/dL 32- [facility] Platelet mean volume (Bld) [Entitic vol] 9.4 fL 6.2-12.0 [facility] Platelets (Bld) [#/Vol] 291 10*3/uL 150-450 [facility] No Panel InformationOrdered By: Chavez Alcala on 01-03-2024 Estimated Creatinine Clearance Calc 48.23 ml/min [facility] Estimated GFR (MDRD) Amer 63 mL/min >60 [facility] Comment on above: GFR Calc Estimated GFR (MDRD) Non-Af Amer 52 mL/min >60 [facility] Comment on above: Non- GFR Calc RBC Auto (Bld) [#/Vol]Ordere d By: Chavez Alcala on 01-03-2024 RBC (Bld) [#/Vol] 3.53 10*6/uL 4.2-5.[address] [facility] Serum or plasma calcium tai urement (mass/volume)Ordered By: Chavez Alcala on 01-03-2024 Calcium [Mass/Vol] 8.5 mg/dL 8.5-10.1 [facility] Serum or plasma creatinine m easurement (mass/volume)Ordered By: Chavez Alcala on 01-03-2024 Creatinine [Mass/Vol] 1.13 mg/dL 0.55-1.02 [facility] Comment on above: The validity of the calculated GFR & GFRAA in patients over 70 years has not been determined. Clinical correlation is essential. Serum or plasma urea nitroge n measurement (mass/volume)Ordered By: Chavez Alcala on 01-03-2024 Urea nitrogen [Mass/Vol] 37 mg/dL 7-18 [facility] Thin prep Papanicolaou smear with manual screeningOrdered By: Ana Rivera on 01-03-2024 Thin prep Papanicolaou smear with manual screening 333 mg/dL 74-106 [facility] Comment on above: MANAGEMENT OF PATIEN T CARE PER NURSING PROTOCOL Thin prep Papanicolaou smear with manual screeningOrdered By: Chavez Alcala on 01-03-2024 Thin prep Papanicolaou smear with manual screening 8 5-15 [facility] Absolute lymphocyte countOrd ered By: Hansa Cast on 01-02-2024 Lymphocytes Auto (Unsp spec) [#/Vol] 2.24 10*3/uL 0.83-4.51 [facility] Automated lymphocyte count a s percentage of total leukocytesOrdered By: Hansa Cast on 01-02-2024 Lymphocytes/100 WBC Auto (Unsp spec) 31.4 % 19-41 [facility] Basophil percentageOrdered B y: Hansa Cast on 01-02-2024 Basophil percentage 6.9 g/dL 6.4-8.[address] [facility] Basophil percentage 0.30 mg/dL 0.20-1.[address] [facility] Basophils/100 WBC (Bld) 0.4 % 0-1 [facility] Bilirubin [Mass/Vol] 0.30 mg/dL 0.20-1.00 [facility] Comment on above: For patients on eltr ombopag therapy, use of Dimension [place] TBIL is not recommended. Eosinophils/100 WBC (Bld) 1.1 % 0-5 [facility] Monocytes/100 WBC (Bld) 5.2 % 0-10 [facility] Neutrophils (Bld) [#/Vol] 4.3 10*3/uL 2.0-7.7 [facility] Neutrophils/100 WBC (Bld) 60.2 % 47-70 [facility] Protein [Mass/Vol] 6.9 g/dL 6.4-8.2 [facility] Immature granulocytes/100 WB C Auto (Bld)Ordered By: Hansa Cast on 01-02-2024 Immature granulocytes/100 WBC (Bld) 1.700 % 0.0-0.9 [facility] Comment on above: IG% - Immature Granu locytes (promyelocytes, myelocytes and metamyelocytes) > 1% indicates that a LEFT SHIFT is Present. Laboratory - Chemistry and C hemistry - challengeOrdered By: [facility] on 01-02-2024 Albumin/Globulin [Mass ratio] 0.8 {ratio} 0.9-2.4 [facility] ALP [Catalytic activity/Vol] 56 U/L [facility] ALT [Catalytic activity/Vol] 27 U/L [facility] Globulin (S) [Mass/Vol] 3.9 g/dL 2.2-4.2 [facility] Laboratory - Hematology and Cell countsOrdered By: Hansa Serene on 01-02-2024 Nucleated RBC/100 WBC (Bld) [Ratio] 0 % 0-5 [facility] No Panel InformationOrdered By: Hansa Serene on 01-02-2024 3.9 g/dL 2.2-4.2 [facility] 0.8 RATIO 0.9-2.4 [facility] 56 U/L [facility] 27 U/L [facility] Serum or plasma thyroid stim ulating hormone (TSH) measurement (units/volume)Ordered By: Hansa Serene on 01-02-2024 TSH Qn 0.36 uIU/mL 0.358-3.74 [facility] Thin prep Papanicolaou smear with manual screeningOrdered By: [facility] Thin prep Papanicolaou smear with manual screening 3.0 g/dL 3.2-5.0 [facility] Thin prep Papanicolaou smear with manual screening 34 U/L 15-37 [facility] Thin prep Papanicolaou smear with manual screening 1.82 ng/dL 0.76-1.46 [facility] Absolute lymphocyte countOrd ered By: Raisa Mc on 01-01-2024 Lymphocytes Auto (Unsp spec) [#/Vol] 2.66 10*3/uL 0.83-4.51 [facility] Automated lymphocyte count a s percentage of total leukocytesOrdered By: Raisa Mc on 01-01-2024 Lymphocytes/100 WBC Auto (Unsp spec) 26.5 % 19-41 [facility] Basophil percentageOrdered B y: Raisa Mc on 01-01-2024 Basophils/100 WBC (Bld) 0.4 % 0-1 [facility] Chloride [Moles/Vol] 102 mmol/L 98-107 [facility] Eosinophils/100 WBC (Bld) 0.8 % 0-5 [facility] Glucose [Mass/Vol] 405 mg/dL 74-106 [facility] Comment on above: Glucose result great er than or equal to 200 mg/dLsuggests DIABETES MELLITUS per A.D.A. criteria. Hemoglobin (Bld) [Mass/Vol] 11.2 g/dL 12.0-15.0 [facility] Monocytes/100 WBC (Bld) 4.7 % 0-10 [facility] Neutrophils (Bld) [#/Vol] 6.7 10*3/uL 2.0-7.7 [facility] Neutrophils/100 WBC (Bld) 66.7 % 47-70 [facility] Potassium [Moles/Vol] 4.7 mmol/L 3.5-5.1 [facility] Sodium [Moles/Vol] 134 mmol/L 136-145 [facility] WBC (Bld) [#/Vol] 10.0 10*3/uL 4.4-11.[address] [facility] Determination of erythrocyte mean corpuscular volume (MCV)Ordered By: Raisa Mc on 01-01-2024 MCV (RBC) [Entitic vol] 89.5 fL 81-99 [facility] Erythrocyte distribution wid th ratioOrdered By: Raisa Mc on 01-01-2024 Erythrocyte distribution width (RBC) [Ratio] 13.3 % 11.6-14.6 [facility] Erythrocyte distribution wid th standard deviationOrdered By: Raisa Mc on 01-01-2024 Erythrocyte distribution width (RBC) [Entitic vol] 43.3 fL 35.1-43.9 [facility] Hematocrit Auto (Bld) [Volum e fraction]Ordered By: Raisa Mc on 01-01-2024 Hematocrit (Bld) [Volume fraction] 35.0 % 37-47 [facility] Immature granulocytes/100 WB C Auto (Bld)Ordered By: Raisa Mc on 01-01-2024 Immature granulocytes/100 WBC (Bld) 0.900 % 0.0-0.9 [facility] Comment on above: IG% - Immature Granu locytes (promyelocytes, myelocytes and metamyelocytes) > 1% indicates that a LEFT SHIFT is Present. Laboratory - Chemistry and C hemistry - challengeOrdered By: Raisa Mc on 01-01-2024 CO2 [Moles/Vol] 27.0 mmol/L 21.0-32.0 [facility] Urea nitrogen/Creatinine [Mass ratio] 20.3 mg/mg 10-20 [facility] Laboratory - Hematology and Cell countsOrdered By: Raisa Mc on 01-01-2024 MCH (RBC) [Entitic mass] 28.6 pg 27.0-32.0 [facility] MCHC (RBC) [Mass/Vol] 32.0 g/dL 32-36 [facility] Nucleated RBC/100 WBC (Bld) [Ratio] 0 % 0-5 [facility] Platelet mean volume (Bld) [Entitic vol] 9.4 fL 6.2-12.0 [facility] Platelets (Bld) [#/Vol] 309 10*3/uL 150-450 [facility] No Panel InformationOrdered By: Raisa Mc on 01-01-2024 Troponin I High Sensitivity 17 pg/mL 3.0-54.0 [facility] Comment on above: Please Note: New Carolann t Units and Gender Specific Reference Ranges. For more information see Policy Stat Procedure [place] High Sensitivity Troponin (TNIH) and attachments. 17 pg/mL 3.0-54.0 [facility] D-Dimer Quantitative (PE/DVT) 1.83 FEU/ug/m 0.27-0.49 [facility] Comment on above: D-Dimer ELEVATED (>0 .49): Additional studies and clinicalassessments are indicated to conclude diagnosis of:Deep Vein Thrombosis (DVT) or Pulmonary Embolism (PE)CRITICAL VALUE VERIFIED. CALLED TO GARLAND [id number] Maurice Cast.RESULTS READ BACK BY SAME . Estimated Creatinine Clearance Calc 39.76 ml/min [facility] Estimated GFR (MDRD) Amer 50 mL/min >60 [facility] Comment on above: GFR Calc Estimated GFR (MDRD) Non-Af Amer 41 mL/min >60 [facility] Comment on above: Non- GFR Calc 1.83 FEU/ug/m 0.27-0.49 [facility] RBC Auto (Bld) [#/Vol]Ordere d By: Raisa Mc on 01-01-2024 RBC (Bld) [#/Vol] 3.91 10*6/uL 4.2-5.[address] [facility] Serum or plasma calcium tai urement (mass/volume)Ordered By: Raisa Mc on 01-01-2024 Calcium [Mass/Vol] 9.1 mg/dL 8.5-10.1 [facility] Serum or plasma creatinine m easurement (mass/volume)Ordered By: Raisa Mc on 01-01-2024 Creatinine [Mass/Vol] 1.38 mg/dL 0.55-1.02 [facility] Comment on above: The validity of the calculated GFR & GFRAA in patients over 70 years has not been determined. Clinical correlation is essential. Serum or plasma urea nitroge n measurement (mass/volume)Ordered By: Raisa Mc on 01-01-2024 Urea nitrogen [Mass/Vol] 28 mg/dL 7-18 [facility] Thin prep Papanicolaou smear with manual screeningOrdered By: Raisa Mc on 01-01-2024 Thin prep Papanicolaou smear with manual screening 5 5-15 [facility] Absolute lymphocyte countOrd ered By: Lizet Linares on 12-31-2023 Lymphocytes Auto (Unsp spec) [#/Vol] 1.71 10*3/uL 0.83-4.51 [facility] Automated lymphocyte count a s percentage of total leukocytesOrdered By: Lizet Linares on 12-31-2023 Lymphocytes/100 WBC Auto (Unsp spec) 21.9 % 19-41 [facility] Basophil percentageOrdered B y: Lizet Linares on 12-31-2023 Basophil percentage 11.2 g/dL 12.0-15.[address] [facility] Basophil percentage 480 mg/dL 74-[address] [facility] Basophil percentage 134 mmol/L 136-[address] [facility] Basophil percentage 4.9 mmol/L 3.5-5.[address] [facility] Basophil percentage 101 mmol/L 98-[address] [facility] Basophils (Bld) [#/Vol] 7.8 10*3/uL 4.4-11.0 [facility] Basophils (Bld) [#/Vol] 5.7 10*3/uL 2.0-7.7 [facility] Basophils/100 WBC (Bld) 0.4 % 0-1 [facility] Basophils/100 WBC (Bld) 73.1 % 47-70 [facility] Basophils/100 WBC (Bld) 3.7 % 0-10 [facility] Basophils/100 WBC (Bld) 0.0 % 0-5 [facility] Chloride [Moles/Vol] 101 mmol/L 98-107 [facility] Eosinophils/100 WBC (Bld) 0.0 % 0-5 [facility] Glucose [Mass/Vol] 480 mg/dL 74-106 [facility] Comment on above: Critical Result(s) C alled at: 08:54:01 12/31/2023 by: Dalila Apodaca RN ([facility]). Results read back by same.Glucose result greater than or equal to 200 mg/dLsuggests DIABETES MELLITUS per A.D.A. criteria. Hemoglobin (Bld) [Mass/Vol] 11.2 g/dL 12.0-15.0 [facility] Monocytes/100 WBC (Bld) 3.7 % 0-10 [facility] Neutrophils (Bld) [#/Vol] 5.7 10*3/uL 2.0-7.7 [facility] Neutrophils/100 WBC (Bld) 73.1 % 47-70 [facility] Potassium [Moles/Vol] 4.9 mmol/L 3.5-5.1 [facility] Sodium [Moles/Vol] 134 mmol/L 136-145 [facility] WBC (Bld) [#/Vol] 7.8 10*3/uL 4.4-11.0 [facility] Determination of erythrocyte mean corpuscular volume (MCV)Ordered By: Lizet Linares on 12-31-2023 MCV (RBC) [Entitic vol] 90.5 fL 81-99 [facility] Erythrocyte distribution wid th ratioOrdered By: [facility] Taytal on 12-31-2023 Erythrocyte distribution width (RBC) [Ratio] 13.1 % 11.6-14.6 [facility] Erythrocyte distribution wid th standard deviationOrdered By: christamccaskillnatasha Linares on 12-31-2023 Erythrocyte distribution width (RBC) [Entitic vol] 43.3 fL 35.1-43.9 [facility] Hematocrit Auto (Bld) [Volum e fraction]Ordered By: christamccaskillnatasha Linares on 12-31-2023 Hematocrit (Bld) [Volume fraction] 34.4 % 37-47 [facility] Immature granulocytes/100 WB C Auto (Bld)Ordered By: christamccaskillnatasha Linares on 12-31-2023 Immature granulocytes/100 WBC (Bld) 0.900 % 0.0-0.9 [facility] Comment on above: IG% - Immature Granu locytes (promyelocytes, myelocytes and metamyelocytes) > 1% indicates that a LEFT SHIFT is Present. Laboratory - Chemistry and C hemistry - challengeOrdered By: marcelle Linares on 12-31-2023 CO2 [Moles/Vol] 24.0 mmol/L 21.0-32.0 [facility] Urea nitrogen/Creatinine [Mass ratio] 19.6 mg/mg 10-20 [facility] Laboratory - Hematology and Cell countsOrdered By: [facility] on 12-31-2023 MCH (RBC) [Entitic mass] 29.5 pg 27.0-32.0 [facility] MCHC (RBC) [Mass/Vol] 32.6 g/dL 32-36 [facility] Nucleated RBC/100 WBC (Bld) [Ratio] 0 % 0-5 [facility] Platelet mean volume (Bld) [Entitic vol] 9.9 fL 6.2-12.0 [facility] Platelets (Bld) [#/Vol] 257 10*3/uL 150-450 [facility] No Panel InformationOrdered By: Lizet Linares on 12-31-2023 Estimated GFR (MDRD) Amer 50 mL/min >60 [facility] Comment on above: GFR Calc Estimated GFR (MDRD) Non-Af Amer 41 mL/min >60 [facility] Comment on above: Non- GFR Calc 29.5 pg 27.0-32.0 [facility] 32.6 g/dL 32-36 [facility] 257 K/mm3 150-450 [facility] 9.9 fl 6.2-12.0 [facility] 0 % 0-5 [facility] 41 mL/min >60 [facility] 50 mL/min >60 [facility] 19.6 RATIO 10-20 [facility] 24.0 mmol/L 21.0-32.0 [facility] RBC Auto (Bld) [#/Vol]Ordere d By: Lizet Linares on 12-31-2023 RBC (Bld) [#/Vol] 3.80 10*6/uL 4.2-5.[address] [facility] Serum or plasma calcium tai urement (mass/volume)Ordered By: Lizet Linares on 12-31-2023 Calcium [Mass/Vol] 9.3 mg/dL 8.5-10.1 [facility] Serum or plasma creatinine m easurement (mass/volume)Ordered By: Lizet Linares on 12-31-2023 Creatinine [Mass/Vol] 1.38 mg/dL 0.55-1.02 [facility] Comment on above: The validity of the calculated GFR & GFRAA in patients over 70 years has not been determined. Clinical correlation is essential. Serum or plasma urea nitroge n measurement (mass/volume)Ordered By: Lizet Linares on 12-31-2023 Urea nitrogen [Mass/Vol] 27 mg/dL 7-18 [facility] Thin prep Papanicolaou smear with manual screeningOrdered By: Lizet Linares on 12-31-2023 Thin prep Papanicolaou smear with manual screening 9 5-15 [facility] Bacteria identified Cx Nom ( U)Ordered By: Lizet Linares on 12-29-2023 Culture, urine Proteus mirabilis [facility] Bilirubin Test strip Ql (U)O rdered By: Lizet Linares on 12-29-2023 Bilirubin Ql (U) Negative Negative [facility] Culture, urineOrdered By: Junie Linares on 12-29-2023 Bacteria identified Cx Nom (U) Proteus mirabilis [facility] Ketones Test strip Ql (U)Ord ered By: Lizet Linares on 12-29-2023 Ketones Ql (U) Negative Negative [facility] Nitrite Test strip Ql (U)Ord ered By: Lizet Linares on 12-29-2023 Nitrite Ql (U) Negative Negative [facility] Protein Test strip Ql (U)Ord ered By: Lizet Linares on 12-29-2023 Protein Ql (U) 30 mg/dl Negative [facility] Urine blood detectionOrdered By: Lizet Linares on 12-29-2023 RBC Ql (U) 250 /ul Negative [facility] Urine clarityOrdered By: Bart Linares on 12-29-2023 Clarity (U) Cloudy Clear [facility] Urine color determinationOrd ered By: Lizet Linares on 12-29-2023 Color (U) Yellow Yellow [facility] Urine glucose detectionOrder ed By: Lizet Linares on 12-29-2023 Glucose Ql (U) 1000 mg/dl Normal [facility] Urine leukocyte esterase det ection by dipstickOrdered By: Lizet Linares on 12-29-2023 Leukocyte esterase Test strip Ql (U) 500 /ul Negative [facility] Urine pHOrdered By: Frank Linares on 12-29-2023 pH (U) 6.5 [pH] 5.0 - 8.0 [facility] Urine specific gravity measu rementOrdered By: Lizet Linares on 12-29-2023 Specific gravity (U) [Rel density] 1.005 1.002-1.03 0 [facility] Urine urobilinogen measureme ntOrdered By: Lizet Linares on 12-29-2023 Urobilinogen Ql (U) Normal mg/dl Normal [facility] Absolute lymphocyte countOrd ered By: Lizet Linares on 12-24-2023 Lymphocytes Auto (Unsp spec) [#/Vol] 2.44 10*3/uL 0.83-4.51 [facility] Automated lymphocyte count a s percentage of total leukocytesOrdered By: Lizet Linares on 12-24-2023 Lymphocytes/100 WBC Auto (Unsp spec) 48.0 % 19-41 [facility] Basophil percentageOrdered B y: Lizet Linares on 12-24-2023 Basophil percentage 11.2 g/dL 12.0-15.[address] [facility] Basophil percentage 215 mg/dL 74-[address] [facility] Basophil percentage 136 mmol/L 136-[address] [facility] Basophil percentage 4.1 mmol/L 3.5-5.[address] [facility] Basophil percentage 105 mmol/L 98-[address] [facility] Basophils (Bld) [#/Vol] 5.1 10*3/uL 4.4-11.0 [facility] Basophils (Bld) [#/Vol] 2.2 10*3/uL 2.0-7.7 [facility] Basophils/100 WBC (Bld) 0.6 % 0-1 [facility] Basophils/100 WBC (Bld) 43.3 % 47-70 [facility] Basophils/100 WBC (Bld) 6.9 % 0-10 [facility] Basophils/100 WBC (Bld) 1.0 % 0-5 [facility] Chloride [Moles/Vol] 105 mmol/L 98-107 [facility] Eosinophils/100 WBC (Bld) 1.0 % 0-5 [facility] Glucose [Mass/Vol] 215 mg/dL 74-106 [facility] Comment on above: Glucose result great er than or equal to 200 mg/dLsuggests DIABETES MELLITUS per A.D.A. criteria. Hemoglobin (Bld) [Mass/Vol] 11.2 g/dL 12.0-15.0 [facility] Monocytes/100 WBC (Bld) 6.9 % 0-10 [facility] Neutrophils (Bld) [#/Vol] 2.2 10*3/uL 2.0-7.7 [facility] Neutrophils/100 WBC (Bld) 43.3 % 47-70 [facility] Potassium [Moles/Vol] 4.1 mmol/L 3.5-5.1 [facility] Sodium [Moles/Vol] 136 mmol/L 136-145 [facility] WBC (Bld) [#/Vol] 5.1 10*3/uL 4.4-11.0 [facility] Determination of erythrocyte mean corpuscular volume (MCV)Ordered By: Lizet Linares on 12-24-2023 MCV (RBC) [Entitic vol] 91.1 fL 81-99 [facility] Erythrocyte distribution wid th ratioOrdered By: Lizet Linares on 12-24-2023 Erythrocyte distribution width (RBC) [Ratio] 13.7 % 11.6-14.6 [facility] Erythrocyte distribution wid th standard deviationOrdered By: Lizet Linares on 12-24-2023 Erythrocyte distribution width (RBC) [Entitic vol] 46.0 fL 35.1-43.9 [facility] Hematocrit Auto (Bld) [Volum e fraction]Ordered By: Lizet Linares on 12-24-2023 Hematocrit (Bld) [Volume fraction] 33.8 % 37-47 [facility] Immature granulocytes/100 WB C Auto (Bld)Ordered By: Lizet Linares on 12-24-2023 Immature granulocytes/100 WBC (Bld) 0.200 % 0.0-0.9 [facility] Comment on above: IG% - Immature Granu locytes (promyelocytes, myelocytes and metamyelocytes) > 1% indicates that a LEFT SHIFT is Present. Laboratory - Chemistry and C hemistry - challengeOrdered By: Lizet Linares on 12-24-2023 CO2 [Moles/Vol] 26.0 mmol/L 21.0-32.0 [facility] Urea nitrogen/Creatinine [Mass ratio] 20.2 mg/mg 10-20 [facility] Laboratory - Hematology and Cell countsOrdered By: Lizet Linares on 12-24-2023 MCH (RBC) [Entitic mass] 30.2 pg 27.0-32.0 [facility] MCHC (RBC) [Mass/Vol] 33.1 g/dL 32-36 [facility] Nucleated RBC/100 WBC (Bld) [Ratio] 0 % 0-5 [facility] Platelet mean volume (Bld) [Entitic vol] 9.5 fL 6.2-12.0 [facility] Platelets (Bld) [#/Vol] 229 10*3/uL 150-450 [facility] No Panel InformationOrdered By: Lizet Linares on 12-24-2023 Estimated GFR (MDRD) Amer 66 mL/min >60 [facility] Comment on above: GFR Calc Estimated GFR (MDRD) Non-Af Amer 54 mL/min >60 [facility] Comment on above: Non- GFR Calc 30.2 pg 27.0-32.0 [facility] 33.1 g/dL 32-36 [facility] 229 K/mm3 150-450 [facility] 9.5 fl 6.2-12.0 [facility] 0 % 0-5 [facility] 54 mL/min >60 [facility] 66 mL/min >60 [facility] 20.2 RATIO 10-20 [facility] 26.0 mmol/L 21.0-32.0 [facility] RBC Auto (Bld) [#/Vol]Ordere d By: Lizet Linares on 12-24-2023 RBC (Bld) [#/Vol] 3.71 10*6/uL 4.2-5.[address] [facility] Serum or plasma calcium tai urement (mass/volume)Ordered By: Lizet Linares on 12-24-2023 Calcium [Mass/Vol] 8.7 mg/dL 8.5-10.1 [facility] Serum or plasma creatinine m easurement (mass/volume)Ordered By: Lizet Linares on 12-24-2023 Creatinine [Mass/Vol] 1.09 mg/dL 0.55-1.02 [facility] Comment on above: The validity of the calculated GFR & GFRAA in patients over 70 years has not been determined. Clinical correlation is essential. Serum or plasma urea nitroge n measurement (mass/volume)Ordered By: Asmitanatasha Linares on 12-24-2023 Urea nitrogen [Mass/Vol] 22 mg/dL 7-18 [facility] Thin prep Papanicolaou smear with manual screeningOrdered By: Hollyjanellnatasha Linares on 12-24-2023 Thin prep Papanicolaou smear with manual screening 5 5-15 [facility] Absolute lymphocyte countOrd ered By: Lizet Linares on 12-17-2023 Lymphocytes Auto (Unsp spec) [#/Vol] 2.73 10*3/uL 0.83-4.51 [facility] Automated lymphocyte count a s percentage of total leukocytesOrdered By: Lizet Linares on 12-17-2023 Lymphocytes/100 WBC Auto (Unsp spec) 35.0 % 19-41 [facility] Basophil percentageOrdered B y: Hollyjanellnatasha Linares on 12-17-2023 Basophil percentage 11.2 g/dL 12.0-15.[address] [facility] Basophil percentage 295 mg/dL 74-[address] [facility] Basophil percentage 135 mmol/L 136-[address] [facility] Basophil percentage 4.1 mmol/L 3.5-5.[address] [facility] Basophil percentage 101 mmol/L 98-[address] [facility] Basophils (Bld) [#/Vol] 7.8 10*3/uL 4.4-11.0 [facility] Basophils (Bld) [#/Vol] 4.4 10*3/uL 2.0-7.7 [facility] Basophils/100 WBC (Bld) 0.6 % 0-1 [facility] Basophils/100 WBC (Bld) 56.1 % 47-70 [facility] Basophils/100 WBC (Bld) 6.9 % 0-10 [facility] Basophils/100 WBC (Bld) 1.0 % 0-5 [facility] Chloride [Moles/Vol] 101 mmol/L 98-107 [facility] Eosinophils/100 WBC (Bld) 1.0 % 0-5 [facility] Glucose [Mass/Vol] 295 mg/dL 74-106 [facility] Comment on above: Glucose result great er than or equal to 200 mg/dLsuggests DIABETES MELLITUS per A.D.A. criteria. Hemoglobin (Bld) [Mass/Vol] 11.2 g/dL 12.0-15.0 [facility] Monocytes/100 WBC (Bld) 6.9 % 0-10 [facility] Neutrophils (Bld) [#/Vol] 4.4 10*3/uL 2.0-7.7 [facility] Neutrophils/100 WBC (Bld) 56.1 % 47-70 [facility] Potassium [Moles/Vol] 4.1 mmol/L 3.5-5.1 [facility] Sodium [Moles/Vol] 135 mmol/L 136-145 [facility] WBC (Bld) [#/Vol] 7.8 10*3/uL 4.4-11.0 [facility] Determination of erythrocyte mean corpuscular volume (MCV)Ordered By: Lizet Linares on 12-17-2023 MCV (RBC) [Entitic vol] 90.9 fL 81-99 [facility] Erythrocyte distribution wid th ratioOrdered By: [facility] Taytal on 12-17-2023 Erythrocyte distribution width (RBC) [Ratio] 14.0 % 11.6-14.6 [facility] Erythrocyte distribution wid th standard deviationOrdered By: Hollymccaskillnatasha Crosstal on 12-17-2023 Erythrocyte distribution width (RBC) [Entitic vol] 46.7 fL 35.1-43.9 [facility] Hematocrit Auto (Bld) [Volum e fraction]Ordered By: Lizet Linares on 12-17-2023 Hematocrit (Bld) [Volume fraction] 34.1 % 37-47 [facility] Immature granulocytes/100 WB C Auto (Bld)Ordered By: Lizet Linares on 12-17-2023 Immature granulocytes/100 WBC (Bld) 0.400 % 0.0-0.9 [facility] Comment on above: IG% - Immature Granu locytes (promyelocytes, myelocytes and metamyelocytes) > 1% indicates that a LEFT SHIFT is Present. Laboratory - Chemistry and C hemistry - challengeOrdered By: Lizet Linares on 12-17-2023 CO2 [Moles/Vol] 28.0 mmol/L 21.0-32.0 [facility] Urea nitrogen/Creatinine [Mass ratio] 22.7 mg/mg 10 [facility] Laboratory - Hematology and Cell countsOrdered By: Lizet Linares on 12-17-2023 MCH (RBC) [Entitic mass] 29.9 pg 27.0-32.0 [facility] MCHC (RBC) [Mass/Vol] 32.8 g/dL 32-36 [facility] Nucleated RBC/100 WBC (Bld) [Ratio] 0 % 0-5 [facility] Platelet mean volume (Bld) [Entitic vol] 9.5 fL 6.2-12.0 [facility] Platelets (Bld) [#/Vol] 323 10*3/uL 150-450 [facility] No Panel InformationOrdered By: Lizet Linares on 12-17-2023 Estimated GFR (MDRD) Amer 55 mL/min >60 [facility] Comment on above: GFR Calc Estimated GFR (MDRD) Non-Af Amer 45 mL/min >60 [facility] Comment on above: Non- GFR Calc 29.9 pg 27.0-32.0 [facility] 32.8 g/dL - [facility] 323 K/mm3 150-450 [facility] 9.5 fl 6.2-12.0 [facility] 0 % 0-5 [facility] 45 mL/min >60 [facility] 55 mL/min >60 [facility] 22.7 RATIO 08-13 [facility] 28.0 mmol/L 21.0-32.0 [facility] RBC Auto (Bld) [#/Vol]Ordere d By: Lizet Linares on 12-17-2023 RBC (Bld) [#/Vol] 3.75 10*6/uL 4.2-5.[address] [facility] Serum or plasma calcium tai urement (mass/volume)Ordered By: Lizet Linares on 12-17-2023 Calcium [Mass/Vol] 8.9 mg/dL 8.5-10.1 [facility] Serum or plasma creatinine m easurement (mass/volume)Ordered By: Lizet Tayjntal on 12-17-2023 Creatinine [Mass/Vol] 1.28 mg/dL 0.55-1.02 [facility] Comment on above: The validity of the calculated GFR & GFRAA in patients over 70 years has not been determined. Clinical correlation is essential. Serum or plasma urea nitroge n measurement (mass/volume)Ordered By: Lizet Linares on 12-17-2023 Urea nitrogen [Mass/Vol] 29 mg/dL 7-18 [facility] Thin prep Papanicolaou smear with manual screeningOrdered By: [facility] Crosstal on 12-17-2023 Thin prep Papanicolaou smear with manual screening 6 5-15 [facility] Absolute lymphocyte countOrd ered By: christamccaskillnatasha Crossjntal on 12-10-2023 Lymphocytes Auto (Unsp spec) [#/Vol] 2.72 10*3/uL 0.83-4.51 [facility] Automated lymphocyte count a s percentage of total leukocytesOrdered By: Hollyjanellnatasha Linares on 12-10-2023 Lymphocytes/100 WBC Auto (Unsp spec) 45.2 % 19-41 [facility] Basophil percentageOrdered B y: Lizet Milagros on 12-10-2023 Basophil percentage 10.1 g/dL 12.0-15.[address] [facility] Basophil percentage 352 mg/dL 74-[address] [facility] Basophil percentage 135 mmol/L 136-[address] [facility] Basophil percentage 4.3 mmol/L 3.5-5.[address] [facility] Basophil percentage 103 mmol/L 98-[address] [facility] Basophils (Bld) [#/Vol] 6.0 10*3/uL 4.4-11.0 [facility] Basophils (Bld) [#/Vol] 2.8 10*3/uL 2.0-7.7 [facility] Basophils/100 WBC (Bld) 0.8 % 0-1 [facility] Basophils/100 WBC (Bld) 46.4 % 47-70 [facility] Basophils/100 WBC (Bld) 6.3 % 0-10 [facility] Basophils/100 WBC (Bld) 0.5 % 0-5 [facility] Chloride [Moles/Vol] 103 mmol/L 98-107 [facility] Eosinophils/100 WBC (Bld) 0.5 % 0-5 [facility] Glucose [Mass/Vol] 352 mg/dL 74-106 [facility] Comment on above: Glucose result great er than or equal to 200 mg/dLsuggests DIABETES MELLITUS per A.D.A. criteria. Hemoglobin (Bld) [Mass/Vol] 10.1 g/dL 12.0-15.0 [facility] Monocytes/100 WBC (Bld) 6.3 % 0-10 [facility] Neutrophils (Bld) [#/Vol] 2.8 10*3/uL 2.0-7.7 [facility] Neutrophils/100 WBC (Bld) 46.4 % 47-70 [facility] Potassium [Moles/Vol] 4.3 mmol/L 3.5-5.1 [facility] Sodium [Moles/Vol] 135 mmol/L 136-145 [facility] WBC (Bld) [#/Vol] 6.0 10*3/uL 4.4-11.0 [facility] Determination of erythrocyte mean corpuscular volume (MCV)Ordered By: Lizet Linares on 12-10-2023 MCV (RBC) [Entitic vol] 91.0 fL 81-99 [facility] Erythrocyte distribution wid th ratioOrdered By: Lizet Linares on 12-10-2023 Erythrocyte distribution width (RBC) [Ratio] 13.6 % 11.6-14.6 [facility] Erythrocyte distribution wid th standard deviationOrdered By: Lizet Linares on 12-10-2023 Erythrocyte distribution width (RBC) [Entitic vol] 45.5 fL 35.1-43.9 [facility] Hematocrit Auto (Bld) [Volum e fraction]Ordered By: Lizet Linares on 12-10-2023 Hematocrit (Bld) [Volume fraction] 31.4 % 37-47 [facility] Immature granulocytes/100 WB C Auto (Bld)Ordered By: Lizet Linares on 12-10-2023 Immature granulocytes/100 WBC (Bld) 0.800 % 0.0-0.9 [facility] Comment on above: IG% - Immature Granu locytes (promyelocytes, myelocytes and metamyelocytes) > 1% indicates that a LEFT SHIFT is Present. Laboratory - Chemistry and C hemistry - challengeOrdered By: Lizet Linares on 12-10-2023 CO2 [Moles/Vol] 26.0 mmol/L 21.0-32.0 [facility] Urea nitrogen/Creatinine [Mass ratio] 24.2 mg/mg 08-13 [facility] Laboratory - Hematology and Cell countsOrdered By: Lizet Linares on 12-10-2023 MCH (RBC) [Entitic mass] 29.3 pg 27.0-32.0 [facility] MCHC (RBC) [Mass/Vol] 32.2 g/dL [facility] Nucleated RBC/100 WBC (Bld) [Ratio] 0 % 0-5 [facility] Platelet mean volume (Bld) [Entitic vol] 10.1 fL 6.2-12.0 [facility] Platelets (Bld) [#/Vol] 268 10*3/uL 150-450 [facility] No Panel InformationOrdered By: Lizet Linares on 12-10-2023 Estimated GFR (MDRD) Amer 53 mL/min >60 [facility] Comment on above: GFR Calc Estimated GFR (MDRD) Non-Af Amer 44 mL/min >60 [facility] Comment on above: Non- GFR Calc 29.3 pg 27.0-32.0 [facility] 32.2 g/dL 36 [facility] 268 K/mm3 150-450 [facility] 10.1 fl 6.2-12.0 [facility] 0 % 0-5 [facility] 44 mL/min >60 [facility] 53 mL/min >60 [facility] 24.2 RATIO 08-13 [facility] 26.0 mmol/L 21.0-32.0 [facility] RBC Auto (Bld) [#/Vol]Ordere d By: Lizet Linares on 12-10-2023 RBC (Bld) [#/Vol] 3.45 10*6/uL 4.2-5.[address] [facility] Serum or plasma calcium tai urement (mass/volume)Ordered By: Lizet Linares on 12-10-2023 Calcium [Mass/Vol] 8.5 mg/dL 8.5-10.1 [facility] Serum or plasma creatinine m easurement (mass/volume)Ordered By: Lizet Linares on 12-10-2023 Creatinine [Mass/Vol] 1.32 mg/dL 0.55-1.02 [facility] Comment on above: The validity of the calculated GFR & GFRAA in patients over 70 years has not been determined. Clinical correlation is essential. Serum or plasma urea nitroge n measurement (mass/volume)Ordered By: Lizet Linares on 12-10-2023 Urea nitrogen [Mass/Vol] 32 mg/dL 7-18 [facility] Thin prep Papanicolaou smear with manual screeningOrdered By: Lizet Linares on 12-10-2023 Thin prep Papanicolaou smear with manual screening 6 5-15 [facility] Absolute lymphocyte countOrd ered By: Lizet Linares on 11-26-2023 Lymphocytes Auto (Unsp spec) [#/Vol] 2.84 10*3/uL 0.83-4.51 [facility] Automated lymphocyte count a s percentage of total leukocytesOrdered By: Lizet Linares on 11-26-2023 Lymphocytes/100 WBC Auto (Unsp spec) 40.7 % 19-41 [facility] Basophil percentageOrdered B y: Lizet Linares on 11-26-2023 Basophil percentage 10.8 g/dL 12.0-15.[address] [facility] Basophil percentage 230 mg/dL 74-[address] [facility] Basophil percentage 7.1 g/dL 6.4-8.[address] [facility] Basophil percentage 0.60 mg/dL 0.20-1.[address] [facility] Basophil percentage 244 mg/dL <[address] [facility] Basophil percentage 353 mg/dL <[address] [facility] Basophil percentage 135 mmol/L 136-[address] [facility] Basophil percentage 4.2 mmol/L 3.5-5.[address] [facility] Basophil percentage 102 mmol/L 98-[address] [facility] Basophils (Bld) [#/Vol] 7.0 10*3/uL 4.4-11.0 [facility] Basophils (Bld) [#/Vol] 3.5 10*3/uL 2.0-7.7 [facility] Basophils/100 WBC (Bld) 1.0 % 0-1 [facility] Basophils/100 WBC (Bld) 50.3 % 47-70 [facility] Basophils/100 WBC (Bld) 5.3 % 0-10 [facility] Basophils/100 WBC (Bld) 2.0 % 0-5 [facility] Bilirubin [Mass/Vol] 0.60 mg/dL 0.20-1.00 [facility] Comment on above: For patients on eltr ombopag therapy, use of Dimension [place] TBIL is not recommended. Chloride [Moles/Vol] 102 mmol/L 98-107 [facility] Cholesterol [Mass/Vol] 244 mg/dL <200 [facility] Comment on above: <200 mg/dL Desirable 200-240 mg/dL Borderline >240 mg/dL High Risk Eosinophils/100 WBC (Bld) 2.0 % 0-5 [facility] Glucose [Mass/Vol] 230 mg/dL 74-106 [facility] Comment on above: Glucose result great er than or equal to 200 mg/dLsuggests DIABETES MELLITUS per A.D.A. criteria. Hemoglobin (Bld) [Mass/Vol] 10.8 g/dL 12.0-15.0 [facility] Monocytes/100 WBC (Bld) 5.3 % 0-10 [facility] Neutrophils (Bld) [#/Vol] 3.5 10*3/uL 2.0-7.7 [facility] Neutrophils/100 WBC (Bld) 50.3 % 47-70 [facility] Potassium [Moles/Vol] 4.2 mmol/L 3.5-5.1 [facility] Protein [Mass/Vol] 7.1 g/dL 6.4-8.2 [facility] Sodium [Moles/Vol] 135 mmol/L 136-145 [facility] Triglyceride [Mass/Vol] 353 mg/dL <199 [facility] Comment on above: The drugs N-Acetylcy steine and Metamizole may falsely depress this assay.Serum Triglycerides Reference Interval Normal <150 mg/dL Borderline high 150 - 199 mg/dL High 200 - 499 mg/dL Very High > or = 500 mg/dL WBC (Bld) [#/Vol] 7.0 10*3/uL 4.4-11.0 [facility] Determination of erythrocyte mean corpuscular volume (MCV)Ordered By: Lizet Linares on 11-26-2023 MCV (RBC) [Entitic vol] 94.2 fL 81-99 [facility] Erythrocyte distribution wid th ratioOrdered By: [facility] Taytal on 11-26-2023 Erythrocyte distribution width (RBC) [Ratio] 14.4 % 11.6-14.6 [facility] Erythrocyte distribution wid th standard deviationOrdered By: [facility] Erythrocyte distribution width (RBC) [Entitic vol] 49.4 fL 35.1-43.9 [facility] Hematocrit Auto (Bld) [Volum e fraction]Ordered By: [facility] Taytal on 11-26-2023 Hematocrit (Bld) [Volume fraction] 33.9 % 37-47 [facility] Immature granulocytes/100 WB C Auto (Bld)Or[facility] By[facility] Immature granulocytes/100 WBC (Bld) 0.700 % 0.0-0.9 [facility] Comment on above: IG% - Immature Granu locytes (promyelocytes, myelocytes and metamyelocytes) > 1% indicates that a LEFT SHIFT is Present. Laboratory - Chemistry and C hemistry - challengeOrdered By: [facility] on 11-26-2023 Albumin/Globulin [Mass ratio] 0.9 {ratio} 0.9-2.4 [facility] ALP [Catalytic activity/Vol] 62 U/L 45-117 [facility] ALT [Catalytic activity/Vol] 29 U/L 13-56 [facility] Cholesterol in HDL (Body fld) [Mass/Vol] 23 mg/dL >40 [facility] Comment on above: The drugs N-Acetylcy steine and Metamizole may falsely depress this assay. Reference Range HDL <40 mg/dL Low HDL Cholesterol HDL >or= 60 mg/dL High HDL Cholesterol Cholesterol in LDL (Body fld) [Moles/Vol] 150 mg/dL 0-130 [facility] Cholesterol in VLDL Calc [Moles/Vol] 71 mg/dL 5-40 [facility] CO2 [Moles/Vol] 28.0 mmol/L 21.0-32.0 [facility] Globulin (S) [Mass/Vol] 3.8 g/dL 2.2-4.2 [facility] Urea nitrogen/Creatinine [Mass ratio] 11.7 mg/mg 10-20 [facility] Laboratory - Hematology and Cell countsOrdered By: Lizet Linares on 11-26-2023 MCH (RBC) [Entitic mass] 30.0 pg 27.0-32.0 [facility] MCHC (RBC) [Mass/Vol] 31.9 g/dL 32-36 [facility] Nucleated RBC/100 WBC (Bld) [Ratio] 0 % 0-5 [facility] Platelets (Bld) [#/Vol] 264 10*3/uL 150-450 [facility] No Panel InformationOrdered By: Lizet Linares on 11-26-2023 Estimated GFR (MDRD) Amer 39 mL/min >60 [facility] Comment on above: GFR Calc Estimated GFR (MDRD) Non-Af Amer 32 mL/min >60 [facility] Comment on above: Non- GFR Calc 30.0 pg 27.0-32.0 [facility] 31.9 g/dL 32-36 [facility] 264 K/mm3 150-450 [facility] 0 % 0-5 [facility] 32 mL/min >60 [facility] 39 mL/min >60 [facility] 11.7 RATIO 10-20 [facility] 3.8 g/dL 2.2-4.2 [facility] 0.9 RATIO 0.9-2.4 [facility] 62 U/L 45-117 [facility] 29 U/L 13-56 [facility] 28.0 mmol/L 21.0-32.0 [facility] Platelet mean volume Fercho-Ec ker (Bld) [Entitic vol]Ordered By: Lizet Linares on 11-26-2023 Platelet mean volume (Bld) [Entitic vol] 9.9 fL 6.2-12.0 [facility] RBC Auto (Bld) [#/Vol]Ordere d By: Lizet Linares on 11-26-2023 RBC (Bld) [#/Vol] 3.60 10*6/uL 4.2-5.[address] [facility] Serum or plasma calcium tai urement (mass/volume)Ordered By: Lizet Linares on 11-26-2023 Calcium [Mass/Vol] 9.1 mg/dL 8.5-10.1 [facility] Serum or plasma creatinine m easurement (mass/volume)Ordered By: Lizet Linares on 11-26-2023 Creatinine [Mass/Vol] 1.71 mg/dL 0.55-1.02 [facility] Comment on above: The validity of the calculated GFR & GFRAA in patients over 70 years has not been determined. Clinical correlation is essential. Serum or plasma thyroid stim ulating hormone (TSH) measurement (units/volume)Ordered By: Lizet Linares on 11-26-2023 TSH Qn 99.40 uIU/mL 0.358-3.74 [facility] Serum or plasma urea nitroge n measurement (mass/volume)Ordered By: Lizet Linares on 11-26-2023 Urea nitrogen [Mass/Vol] 20 mg/dL 7-18 [facility] Thin prep Papanicolaou smear with manual screeningOrdered By: Lizet Linares on 11-26-2023 Thin prep Papanicolaou smear with manual screening 3.3 g/dL 3.2-5.0 [facility] Thin prep Papanicolaou smear with manual screening 33 U/L 15-37 [facility] Thin prep Papanicolaou smear with manual screening 5 5-15 [facility] Whole blood hemoglobin A1c/t otal hemoglobin ratio (mass fraction)Ordered By: Lizet Linares on 11-26-2023 HbA1c (Bld) [Mass fraction] 13.1 % 3.8-5.6 [facility] Comment on above: Normal < 5.7 % Predi abetic 5.7 - 6.4 % Diabetic >or= 6.5 % Please note range changes. COVID-19 virus antigen assay Ordered By: Paresh Hernandez on 11-24-2023 SARS-CoV-2 (COVID-19) Ag IA.rapid Ql (Resp) [facility] Thin prep Papanicolaou smear with manual screeningOrdered By: Paresh Hernandez on 11-24-2023 Thin prep Papanicolaou smear with manual screening 128 mg/dL 74-106 [facility] Comment on above: MANAGEMENT OF PATIEN T CARE PER NURSING PROTOCOL Basophil percentageOrdered B y: Paresh Hernandez on 11-23-2023 Basophil percentage 139 mg/dL 74-[address] [facility] Basophil percentage 136 mmol/L 136-[address] [facility] Basophil percentage 4.4 mmol/L 3.5-5.[address] [facility] Basophil percentage 106 mmol/L 98-[address] [facility] Chloride [Moles/Vol] 106 mmol/L 98-107 [facility] Glucose [Mass/Vol] 139 mg/dL 74-106 [facility] Comment on above: Fasting Glucose resu lt greater than or equal to 126 mg/dL suggests DIABETES MELLITUS per A.D.A. criteria. Potassium [Moles/Vol] 4.4 mmol/L 3.5-5.1 [facility] Sodium [Moles/Vol] 136 mmol/L 136-145 [facility] Laboratory - Chemistry and C hemistry - challengeOrdered By: Paresh Hernandez on 11-23-2023 CO2 [Moles/Vol] 25.0 mmol/L 21.0-32.0 [facility] Urea nitrogen/Creatinine [Mass ratio] 8.1 mg/mg 10-20 [facility] No Panel InformationOrdered By: Paresh Hernandez on 11-23-2023 Estimated Creatinine Clearance Calc 33.99 ml/min [facility] Estimated GFR (MDRD) Amer 39 mL/min >60 [facility] Comment on above: GFR Calc Estimated GFR (MDRD) Non-Af Amer 32 mL/min >60 [facility] Comment on above: Non- GFR Calc 32 mL/min >60 [facility] 39 mL/min >60 [facility] 33.99 ml/min [facility] 8.1 RATIO 10-20 [facility] 25.0 mmol/L 21.0-32.0 [facility] Serum or plasma calcium tai urement (mass/volume)Ordered By: Paresh Hernandez on 11-23-2023 Calcium [Mass/Vol] 9.4 mg/dL 8.5-10.1 [facility] Serum or plasma creatinine m easurement (mass/volume)Ordered By: Paresh Hernandez on 11-23-2023 Creatinine [Mass/Vol] 1.72 mg/dL 0.55-1.02 [facility] Comment on above: The validity of the calculated GFR & GFRAA in patients over 70 years has not been determined. Clinical correlation is essential. Serum or plasma urea nitroge n measurement (mass/volume)Ordered By: Paresh Hernandez on 11-23-2023 Urea nitrogen [Mass/Vol] 14 mg/dL 7-18 [facility] Thin prep Papanicolaou smear with manual screeningOrdered By: Paresh Hernandez on 11-23-2023 Thin prep Papanicolaou smear with manual screening 5 5-15 [facility] Absolute lymphocyte countOrd ered By: John Shaw on 11-22-2023 Lymphocytes Auto (Unsp spec) [#/Vol] 2.87 10*3/uL 0.83-4.51 [facility] Automated lymphocyte count a s percentage of total leukocytesOrdered By: John Shaw on 11-22-2023 Lymphocytes/100 WBC Auto (Unsp spec) 41.6 % 19-41 [facility] Basophil percentageOrdered B y: John Shaw on 11-22-2023 Basophil percentage 11.0 g/dL 12.0-15.[address] [facility] Basophils (Bld) [#/Vol] 6.9 10*3/uL 4.4-11.0 [facility] Basophils (Bld) [#/Vol] 3.6 10*3/uL 2.0-7.7 [facility] Basophils/100 WBC (Bld) 0.6 % 0-1 [facility] Basophils/100 WBC (Bld) 51.4 % 47-70 [facility] Basophils/100 WBC (Bld) 4.1 % 0-10 [facility] Basophils/100 WBC (Bld) 1.9 % 0-5 [facility] Eosinophils/100 WBC (Bld) 1.9 % 0-5 [facility] Hemoglobin (Bld) [Mass/Vol] 11.0 g/dL 12.0-15.0 [facility] Monocytes/100 WBC (Bld) 4.1 % 0-10 [facility] Neutrophils (Bld) [#/Vol] 3.6 10*3/uL 2.0-7.7 [facility] Neutrophils/100 WBC (Bld) 51.4 % 47-70 [facility] WBC (Bld) [#/Vol] 6.9 10*3/uL 4.4-11.0 [facility] Determination of erythrocyte mean corpuscular volume (MCV)Ordered By: John Shaw on 11-22-2023 MCV (RBC) [Entitic vol] 91.4 fL 81-99 [facility] Erythrocyte distribution wid th ratioOrdered By: John Shaw on 11-22-2023 Erythrocyte distribution width (RBC) [Ratio] 14.6 % 11.6-14.6 [facility] Erythrocyte distribution wid th standard deviationOrdered By: John Shaw on 11-22-2023 Erythrocyte distribution width (RBC) [Entitic vol] 48.6 fL 35.1-43.9 [facility] Hematocrit Auto (Bld) [Volum e fraction]Ordered By: John Shaw on 11-22-2023 Hematocrit (Bld) [Volume fraction] 33.8 % 37-47 [facility] Immature granulocytes/100 WB C Auto (Bld)Ordered By: John Shaw on 11-22-2023 Immature granulocytes/100 WBC (Bld) 0.400 % 0.0-0.9 [facility] Comment on above: IG% - Immature Granu locytes (promyelocytes, myelocytes and metamyelocytes) > 1% indicates that a LEFT SHIFT is Present. Laboratory - Hematology and Cell countsOrdered By: John Shaw on 11-22-2023 MCH (RBC) [Entitic mass] 29.7 pg 27.0-32.0 [facility] MCHC (RBC) [Mass/Vol] 32.5 g/dL 32-36 [facility] Nucleated RBC/100 WBC (Bld) [Ratio] 0 % 0-5 [facility] Platelets (Bld) [#/Vol] 260 10*3/uL 150-450 [facility] No Panel InformationOrdered By: John Shwa on 11-22-2023 29.7 pg 27.0-32.0 [facility] 32.5 g/dL 32-36 [facility] 260 K/mm3 150-450 [facility] 0 % 0-5 [facility] Platelet mean volume Fercho-Ec ker (Bld) [Entitic vol]Ordered By: John Shaw on 11-22-2023 Platelet mean volume (Bld) [Entitic vol] 10.2 fL 6.2-12.0 [facility] RBC Auto (Bld) [#/Vol]Ordere d By: John Shaw on 11-22-2023 RBC (Bld) [#/Vol] 3.70 10*6/uL 4.2-5.[address] [facility] Bacteria identified Cx Nom ( U)Ordered By: John Shaw on 11-20-2023 Culture, urine Enterococcus faecalis [facility] Basophil percentageOrdered B y: John Shaw on 11-20-2023 Basophil percentage 2.3 mg/dL 2.5-4.[address] [facility] Culture, urineOrdered By: Albert Shaw on 11-20-2023 Bacteria identified Cx Nom (U) Enterococcus faecalis [facility] Bacteria identified Cx Nom (U) Enterococcus faecalis [facility] Laboratory - Chemistry and C hemistry - challengeOrdered By: John Shaw on 11-20-2023 Magnesium [Mass/Vol] 2.1 mg/dL 1.6-2.6 [facility] No Panel InformationOrdered By: John Shaw on 11-20-2023 2.1 mg/dL 1.6-2.6 [facility] Absolute lymphocyte countOrd ered By: ED PROVIDER on 11-19-2023 Lymphocytes Auto (Unsp spec) [#/Vol] 4.21 10*3/uL 0.83-4.51 [facility] Automated lymphocyte count a s percentage of total leukocytesOrdered By: ED PROVIDER on 11-19-2023 Lymphocytes/100 WBC Auto (Unsp spec) 35.7 % 19-41 [facility] Basophil percentageOrdered B y: John Shaw on 11-19-2023 Basophil percentage 7.3 g/dL 6.4-8.[address] [facility] Basophil percentage 0.50 mg/dL 0.20-1.[address] [facility] Bilirubin [Mass/Vol] 0.50 mg/dL 0.20-1.00 [facility] Comment on above: For patients on eltr ombopag therapy, use of Dimension [place] TBIL is not recommended. Protein [Mass/Vol] 7.3 g/dL 6.4-8.2 [facility] Basophil percentageOrdered B y: Zack Choi on 11-19-2023 Basophil percentage 10-25 SEEN /hpf 0-5 [facility] Bilirubin [Mass/Vol] 0.60 mg/dL 0.20-1.00 [facility] Comment on above: For patients on eltr ombopag therapy, use of Dimension [place] TBIL is not recommended. Protein [Mass/Vol] 8.5 g/dL 6.4-8.2 [facility] Basophil percentageOrdered B y: ED PROVIDER on 11-19-2023 Basophils/100 WBC (Bld) 0.7 % 0-1 [facility] Chloride [Moles/Vol] 92 mmol/L 98-107 [facility] Eosinophils/100 WBC (Bld) 0.4 % 0-5 [facility] Glucose [Mass/Vol] 484 mg/dL 74-106 [facility] Comment on above: Critical Result(s) C alled at: 09:01:13 11/19/2023 by: Shonda March to Jessica Segal. Results read back by same.Glucose result greater than or equal to 200 mg/dLsuggests DIABETES MELLITUS per A.D.A. criteria. Hemoglobin (Bld) [Mass/Vol] 13.7 g/dL 12.0-15.0 [facility] Monocytes/100 WBC (Bld) 3.3 % 0-10 [facility] Neutrophils (Bld) [#/Vol] 7.0 10*3/uL 2.0-7.7 [facility] Neutrophils/100 WBC (Bld) 59.6 % 47-70 [facility] Potassium [Moles/Vol] 3.4 mmol/L 3.5-5.1 [facility] Comment on above: Slight Hemolysis, Re sult may be falsely increased. Sodium [Moles/Vol] 127 mmol/L 136-145 [facility] WBC (Bld) [#/Vol] 11.8 10*3/uL 4.4-11.[address] [facility] Bilirubin Test strip Ql (U)O rdered By: Zack Choi on 11-19-2023 Bilirubin Ql (U) Negative Negative [facility] Determination of erythrocyte mean corpuscular volume (MCV)Ordered By: ED PROVIDER on 11-19-2023 MCV (RBC) [Entitic vol] 87.8 fL 81-99 [facility] Direct bilirubinOrdered By: Zack Choi on 11-19-2023 Bilirubin.direct [Mass/Vol] 0.16 mg/dL 0.00-0.30 [facility] Erythrocyte distribution wid th ratioOrdered By: ED PROVIDER on 11-19-2023 Erythrocyte distribution width (RBC) [Ratio] 13.5 % 11.6-14.6 [facility] Erythrocyte distribution wid th standard deviationOrdered By: ED PROVIDER on 11-19-2023 Erythrocyte distribution width (RBC) [Entitic vol] 43.6 fL 35.1-43.9 [facility] Hematocrit Auto (Bld) [Volum e fraction]Ordered By: ED PROVIDER on 11-19-2023 Hematocrit (Bld) [Volume fraction] 40.2 % 37-47 [facility] Immature granulocytes/100 WB C Auto (Bld)Ordered By: ED PROVIDER on 11-19-2023 Immature granulocytes/100 WBC (Bld) 0.300 % 0.0-0.9 [facility] Comment on above: IG% - Immature Granu locytes (promyelocytes, myelocytes and metamyelocytes) > 1% indicates that a LEFT SHIFT is Present. Ketones Test strip Ql (U)Ord ered By: Zack Choi on 11-19-2023 Ketones Ql (U) Negative Negative [facility] Laboratory - Chemistry and C hemistry - challengeOrdered By: John Shaw on 11-19-2023 Albumin/Globulin [Mass ratio] 0.9 {ratio} 0.9-2.4 [facility] ALP [Catalytic activity/Vol] 60 U/L 45-117 [facility] ALT [Catalytic activity/Vol] 27 U/L - [facility] Globulin (S) [Mass/Vol] 3.9 g/dL 2.2-4.2 [facility] Laboratory - Chemistry and C hemistry - challengeOrdered By: Zack Choi on 11-19-2023 ALP [Catalytic activity/Vol] 73 U/L 45-117 [facility] ALT [Catalytic activity/Vol] 33 U/L [facility] Globulin (S) [Mass/Vol] 4.6 g/dL 2.2-4.2 [facility] Lipase [Catalytic activity/Vol] 39 U/L [facility] Comment on above: Please note:LIPASE r evised reference range effective 23. New Lipase methodology. Expected to produce lower values than the previous assay method. NEW Reference Range: 13 - 75 U/L Laboratory - Chemistry and C hemistry - challengeOrdered By: ED PROVIDER on 11-19-2023 CO2 [Moles/Vol] 24.0 mmol/L 21.0-32.0 [facility] Urea nitrogen/Creatinine [Mass ratio] 9.5 mg/mg 10-20 [facility] Laboratory - Hematology and Cell countsOrdered By: ED PROVIDER on 11-19-2023 MCH (RBC) [Entitic mass] 29.9 pg 27.0-32.0 [facility] MCHC (RBC) [Mass/Vol] 34.1 g/dL 32-36 [facility] Nucleated RBC/100 WBC (Bld) [Ratio] 0 % 0-5 [facility] Platelets (Bld) [#/Vol] 306 10*3/uL 150-450 [facility] Mucus LM Ql (Urine sed)Order ed By: Zack Choi on 11-19-2023 Mucus Ql (Urine sed) 0 SEEN /hpf [facility] Nitrite Test strip Ql (U)Ord ered By: Zack Choi on 11-19-2023 Nitrite Ql (U) Negative Negative [facility] No Panel InformationOrdered By: John Shaw on 11-19-2023 3.9 g/dL 2.2-4.2 [facility] 0.9 RATIO 0.9-2.4 [facility] 60 U/L 45-117 [facility] 27 U/L 13-56 [facility] No Panel InformationOrdered By: Zack Choi on 11-19-2023 Urine RBC 0-5 SEEN /hpf 0-5 [facility] 0-5 SEEN /hpf 0-5 [facility] 39 U/L 13-75 [facility] No Panel InformationOrdered By: ED PROVIDER on 11-19-2023 Estimated Creatinine Clearance Calc 34.64 ml/min [facility] Estimated GFR (MDRD) Amer 40 mL/min >60 [facility] Comment on above: GFR Calc Estimated GFR (MDRD) Non-Af Amer 33 mL/min >60 [facility] Comment on above: Non- GFR Calc Platelet mean volume Fercho-Ec ker (Bld) [Entitic vol]Ordered By: ED PROVIDER on 11-19-2023 Platelet mean volume (Bld) [Entitic vol] 10.9 fL 6.2-12.0 [facility] Protein Test strip Ql (U)Ord ered By: Zack Choi on 11-19-2023 Protein Ql (U) 30 mg/dl Negative [facility] RBC Auto (Bld) [#/Vol]Ordere d By: ED PROVIDER on 11-19-2023 RBC (Bld) [#/Vol] 4.58 10*6/uL 4.2-5.[address] [facility] Serum or plasma acetone tai urement (mass/volume)Ordered By: ED PROVIDER on 11-19-2023 Acetone [Mass/Vol] Negative NEG [facility] Serum or plasma calcium tai urement (mass/volume)Ordered By: ED PROVIDER on 11-19-2023 Calcium [Mass/Vol] 9.6 mg/dL 8.5-10.1 [facility] Serum or plasma creatinine m easurement (mass/volume)Ordered By: ED PROVIDER on 11-19-2023 Creatinine [Mass/Vol] 1.68 mg/dL 0.55-1.02 [facility] Comment on above: The validity of the calculated GFR & GFRAA in patients over 70 years has not been determined. Clinical correlation is essential. Serum or plasma urea nitroge n measurement (mass/volume)Ordered By: ED PROVIDER on 11-19-2023 Urea nitrogen [Mass/Vol] 16 mg/dL 7-18 [facility] Squamous epithelial cells de tection in urine sediment by light microscopyOrdered By: Zack Choi on 11-19-2023 Epithelial cells.squamous LM Ql (Urine sed) 10-25 SEEN /hpf 5-10 [facility] Thin prep Papanicolaou smear with manual screeningOrdered By: John Shaw on 11-19-2023 Thin prep Papanicolaou smear with manual screening 3.4 g/dL 3.2-5.0 [facility] Thin prep Papanicolaou smear with manual screening 24 U/L 15- [facility] Thin prep Papanicolaou smear with manual screeningOrdered By: Zack Choi on 11-19-2023 Thin prep Papanicolaou smear with manual screening 356 mg/dL 74-106 [facility] Comment on above: MANAGEMENT OF PATIEN T CARE PER NURSING PROTOCOL Thin prep Papanicolaou smear with manual screening 3.9 g/dL 3.2-5.0 [facility] Thin prep Papanicolaou smear with manual screening 30 U/L 15-37 [facility] Comment on above: Slight Hemolysis, Re sult may be falsely increased. Thin prep Papanicolaou smear with manual screeningOrdered By: ED PROVIDER on 11-19-2023 Thin prep Papanicolaou smear with manual screening 11 5-15 [facility] Urine blood detectionOrdered By: Zack Choi on 11-19-2023 RBC Ql (U) 10 /ul Negative [facility] Urine clarityOrdered By: Garland Choi on 11-19-2023 Clarity (U) Sl. Cloudy Clear [facility] Urine color determinationOrd ered By: Zack Choi on 11-19-2023 Color (U) Yellow Yellow [facility] Urine glucose detectionOrder ed By: Zack Choi on 11-19-2023 Glucose Ql (U) 1000 mg/dl Normal [facility] Urine leukocyte esterase det ection by dipstickOrdered By: Zack Choi on 11-19-2023 Leukocyte esterase Test strip Ql (U) 100 /ul Negative [facility] Urine pHOrdered By: Zack james on 11-19-2023 pH (U) 6.0 [pH] 5.0 - 8.0 [facility] Urine sediment bacteria coun t by microscopy (number/high power field)Ordered By: Zack Choi on 11-19-2023 Bacteria LM.HPF (Urine sed) [#/Area] 0 /[HPF] None Seen [facility] Urine sediment yeast count b y microscopy (number/high powered field)Ordered By: Zack Choi on 11-19-2023 Yeast LM.HPF (Urine sed) [#/Area] 2 /[HPF] None Seen [facility] Urine specific gravity measu rementOrdered By: Zack Choi on 11-19-2023 Specific gravity (U) [Rel density] 1.015 1.002-1.03 0 [facility] Urine urobilinogen measureme ntOrdered By: Zack Choi on 11-19-2023 Urobilinogen Ql (U) Normal mg/dl Normal [facility] Absolute lymphocyte countOrd ered By: Bronson Retana on 06-06-2023 Lymphocytes Auto (Unsp spec) [#/Vol] 2.81 10*3/uL 0.83-4.51 [facility] Basophil percentageOrdered B y: Bronson Retana on 06-06-2023 Basophils/100 WBC (Bld) 0.8 % 0-1 [facility] Chloride [Moles/Vol] 94 mmol/L 98-107 [facility] Eosinophils/100 WBC (Bld) 0.9 % 0-5 [facility] Glucose [Mass/Vol] 554 mg/dL 74-106 [facility] Comment on above: Critical Result(s) C alled at: 18:31:37 06/06/2023 by: AUSTYN ESTRELLA. TO BARBARA SALAS RN ER Results read back by same.Glucose result greater than or equal to 200 mg/dLsuggests DIABETES MELLITUS per A.D.A. criteria. Neutrophils (Bld) [#/Vol] 3.2 10*3/uL 2.0-7.7 [facility] Neutrophils/100 WBC (Bld) 50.5 % 47-70 [facility] Potassium [Moles/Vol] 3.6 mmol/L 3.5-5.1 [facility] Sodium [Moles/Vol] 129 mmol/L 136-145 [facility] WBC (Bld) [#/Vol] 6.4 10*3/uL 4.4-11.0 [facility] Blood erythrocytes count (nu mber/volume)Ordered By: Bronson Retana on 06-06-2023 RBC (Bld) [#/Vol] 4.77 10*6/uL 4.2-5.[address] [facility] Blood hemoglobin measurement (mass/volume)Ordered By: Bronson Retana on 06-06-2023 Hemoglobin (Bld) [Mass/Vol] 13.7 g/dL 12.0-15.0 [facility] Blood lymphocytes/100 leukoc ytesOrdered By: Bronson Retana on 06-06-2023 Lymphocytes/100 WBC (Bld) 44.0 % 19-41 [facility] Blood monocytes/100 leukocyt esOrdered By: Bronson Retana on 06-06-2023 Monocytes/100 WBC (Bld) 3.3 % 0-10 [facility] Blood platelet mean volumeOr dered By: Bronson Retana on 06-06-2023 Platelet mean volume (Bld) [Entitic vol] 10.7 fL 6.2-12.0 [facility] Determination of erythrocyte mean corpuscular volume (MCV)Ordered By: Bronson Retana on 06-06-2023 MCV (RBC) [Entitic vol] 89.3 fL 81-99 [facility] Glucose Glucometer (BldC) [M ass/Vol]Ordered By: Bronson Retana on 06-06-2023 Glucose [Mass/Vol] 327 mg/dL 74-106 [facility] Comment on above: MANAGEMENT OF PATIEN T CARE PER NURSING PROTOCOL Hematocrit Auto (Bld) [Volum e fraction]Ordered By: Bronson Retana on 06-06-2023 Hematocrit (Bld) [Volume fraction] 42.6 % 37-47 [facility] Laboratory - Chemistry and C hemistry - challengeOrdered By: Bronson Retana on 06-06-2023 CO2 [Moles/Vol] 23.0 mmol/L 21.0-32.0 [facility] Urea nitrogen/Creatinine [Mass ratio] 7.5 mg/mg 10-20 [facility] Laboratory - Hematology and Cell countsOrdered By: Bronson Retana on 06-06-2023 Erythrocyte distribution width (RBC) [Entitic vol] 44.1 fL 35.1-43.9 [facility] Erythrocyte distribution width (RBC) [Ratio] 13.4 % 11.6-14.6 [facility] Immature granulocytes/100 WBC (Bld) 0.500 % 0.0-0.9 [facility] Comment on above: IG% - Immature Granu locytes (promyelocytes, myelocytes and metamyelocytes) > 1% indicates that a LEFT SHIFT is Present. MCH (RBC) [Entitic mass] 28.7 pg 27.0-32.0 [facility] Nucleated RBC/100 WBC (Bld) [Ratio] 0 % 0-5 [facility] MCHC Auto (RBC) [Mass/Vol]Or dered By: Bronson Retana on 06-06-2023 MCHC (RBC) [Mass/Vol] 32.2 g/dL 32-36 [facility] No Panel InformationOrdered By: Bronson Retana on 06-06-2023 Estimated GFR (MDRD) Amer 52 mL/min >60 [facility] Comment on above: GFR Calc Estimated GFR (MDRD) Non-Af Amer 43 mL/min >60 [facility] Comment on above: Non- GFR Calc Platelets bldOrdered By: Yoni Retana on 06-06-2023 Platelets (Bld) [#/Vol] 233 10*3/uL 150-450 [facility] Serum or plasma acetone tai urement (mass/volume)Ordered By: Bronson Retana on 06-06-2023 Acetone [Mass/Vol] Negative NEG [facility] Serum or plasma calcium tai urement (mass/volume)Ordered By: Bronson Retana on 06-06-2023 Calcium [Mass/Vol] 8.9 mg/dL 8.5-10.1 [facility] Serum or plasma creatinine m easurement (mass/volume)Ordered By: Bronson Retana on 06-06-2023 Creatinine [Mass/Vol] 1.34 mg/dL 0.55-1.02 [facility] Comment on above: The validity of the calculated GFR & GFRAA in patients over 70 years has not been determined. Clinical correlation is essential. Serum or plasma urea nitroge n measurement (mass/volume)Ordered By: Bronson Retana on 06-06-2023 Urea nitrogen [Mass/Vol] 10 mg/dL 7-18 [facility] Thin prep Papanicolaou smear with manual screeningOrdered By: Bronson Retana on 06-06-2023 Thin prep Papanicolaou smear with manual screening 12 5-15 [facility] Absolute lymphocyte countOrd ered By: ED PROVIDER on 06-04-2023 Lymphocytes Auto (Unsp spec) [#/Vol] 2.58 10*3/uL 0.83-4.51 [facility] Basophil percentageOrdered B y: Bronson Retana on 06-04-2023 Basophil percentage 0-5 SEEN /hpf 0-5 [facility] Basophil percentageOrdered B y: ED PROVIDER on 06-04-2023 Basophils/100 WBC (Bld) 0.8 % 0-1 [facility] Bilirubin [Mass/Vol] 0.80 mg/dL 0.20-1.00 [facility] Comment on above: For patients on eltr ombopag therapy, use of Dimension [place] TBIL is not recommended. Chloride [Moles/Vol] 90 mmol/L 98-107 [facility] Eosinophils/100 WBC (Bld) 0.5 % 0-5 [facility] Glucose [Mass/Vol] 491 mg/dL 74-106 [facility] Comment on above: Critical Result(s) C alled at: 15:52:49 06/04/2023 by: Tomasa Romero. Results read back by same.Glucose result greater than or equal to 200 mg/dLsuggests DIABETES MELLITUS per A.D.A. criteria. Neutrophils (Bld) [#/Vol] 3.6 10*3/uL 2.0-7.7 [facility] Neutrophils/100 WBC (Bld) 55.4 % 47-70 [facility] Potassium [Moles/Vol] 3.8 mmol/L 3.5-5.1 [facility] Protein [Mass/Vol] 7.6 g/dL 6.4-8.2 [facility] Sodium [Moles/Vol] 127 mmol/L 136-145 [facility] WBC (Bld) [#/Vol] 6.5 10*3/uL 4.4-11.0 [facility] Bilirubin Test strip Ql (U)O rdered By: Bronson Retana on 06-04-2023 Bilirubin Ql (U) Negative Negative [facility] Blood erythrocytes count (nu mber/volume)Ordered By: ED PROVIDER on 06-04-2023 RBC (Bld) [#/Vol] 4.83 10*6/uL 4.2-5.[address] [facility] Blood hemoglobin measurement (mass/volume)Ordered By: ED PROVIDER on 06-04-2023 Hemoglobin (Bld) [Mass/Vol] 14.0 g/dL 12.0-15.0 [facility] Blood lymphocytes/100 leukoc ytesOrdered By: ED PROVIDER on 06-04-2023 Lymphocytes/100 WBC (Bld) 39.6 % 19-41 [facility] Blood monocytes/100 leukocyt esOrdered By: ED PROVIDER on 06-04-2023 Monocytes/100 WBC (Bld) 3.2 % 0-10 [facility] Blood platelet mean volumeOr dered By: ED PROVIDER on 06-04-2023 Platelet mean volume (Bld) [Entitic vol] 10.7 fL 6.2-12.0 [facility] Determination of erythrocyte mean corpuscular volume (MCV)Ordered By: ED PROVIDER on 06-04-2023 MCV (RBC) [Entitic vol] 87.0 fL 81-99 [facility] Glucose Glucometer (dC) [M ass/Vol]Ordered By: Bronson Retana on 06-04-2023 Glucose [Mass/Vol] 274 mg/dL 74-106 [facility] Comment on above: MANAGEMENT OF PATIEN T CARE PER NURSING PROTOCOL Glucose [Mass/Vol] 379 mg/dL 74-106 [facility] Comment on above: MANAGEMENT OF PATIEN T CARE PER NURSING PROTOCOL Hematocrit Auto (Bld) [Volum e fraction]Ordered By: ED PROVIDER on 06-04-2023 Hematocrit (Bld) [Volume fraction] 42.0 % 37-47 [facility] Ketones Test strip Ql (U)Ord ered By: Bronson Retana on 06-04-2023 Ketones Ql (U) 15 mg/dl Negative [facility] Laboratory - Chemistry and C hemistry - challengeOrdered By: ED PROVIDER on 06-04-2023 ALP [Catalytic activity/Vol] 78 U/L 45-117 [facility] ALT [Catalytic activity/Vol] 29 U/L 13-56 [facility] CO2 [Moles/Vol] 27.0 mmol/L 21.0-32.0 [facility] Globulin (S) [Mass/Vol] 4.1 g/dL 2.2-4.2 [facility] Urea nitrogen/Creatinine [Mass ratio] 10.6 mg/mg 10-20 [facility] Laboratory - Chemistry and C hemistry - challengeOrdered By: Bronson Retana on 06-04-2023 Lipase [Catalytic activity/Vol] 39 U/L 13-75 [facility] Comment on above: Please note:LIPASE r evised reference range effective 23. New Lipase methodology. Expected to produce lower values than the previous assay method. NEW Reference Range: 13 - 75 U/L Laboratory - Hematology and Cell countsOrdered By: ED PROVIDER on 06-04-2023 Erythrocyte distribution width (RBC) [Entitic vol] 42.1 fL 35.1-43.9 [facility] Erythrocyte distribution width (RBC) [Ratio] 13.3 % 11.6-14.6 [facility] Immature granulocytes/100 WBC (Bld) 0.500 % 0.0-0.9 [facility] Comment on above: IG% - Immature Granu locytes (promyelocytes, myelocytes and metamyelocytes) > 1% indicates that a LEFT SHIFT is Present. MCH (RBC) [Entitic mass] 29.0 pg 27.0-32.0 [facility] Nucleated RBC/100 WBC (Bld) [Ratio] 0 % 0-5 [facility] MCHC Auto (RBC) [Mass/Vol]Or dered By: ED PROVIDER on 06-04-2023 MCHC (RBC) [Mass/Vol] 33.3 g/dL 32-36 [facility] Mucus LM Ql (Urine sed)Order ed By: Bronson Retana on 06-04-2023 Mucus Ql (Urine sed) 0 SEEN /hpf [facility] Nitrite Test strip Ql (U)Ord ered By: Bronson Retana on 06-04-2023 Nitrite Ql (U) Negative Negative [facility] No Panel InformationOrdered By: ED PROVIDER on 06-04-2023 Estimated GFR (MDRD) Amer 53 mL/min >60 [facility] Comment on above: GFR Calc Estimated GFR (MDRD) Non-Af Amer 44 mL/min >60 [facility] Comment on above: Non- GFR Calc Platelets bldOrdered By: ED PROVIDER on 06-04-2023 Platelets (Bld) [#/Vol] 240 10*3/uL 150-450 [facility] Protein Test strip Ql (U)Ord ered By: Bronson Retana on 06-04-2023 Protein Ql (U) 30 mg/dl Negative [facility] Serum or plasma albumin tai urement (mass/volume)Ordered By: ED PROVIDER on 06-04-2023 Albumin [Mass/Vol] 3.5 g/dL 3.2-5.0 [facility] Serum or plasma albumin/glob ulin mass ratioOrdered By: ED PROVIDER on 06-04-2023 Albumin/Globulin [Mass ratio] 0.9 {ratio} 0.9-2.4 [facility] Serum or plasma calcium tai urement (mass/volume)Ordered By: ED PROVIDER on 06-04-2023 Calcium [Mass/Vol] 9.1 mg/dL 8.5-10.1 [facility] Serum or plasma creatinine m easurement (mass/volume)Ordered By: ED PROVIDER on 06-04-2023 Creatinine [Mass/Vol] 1.32 mg/dL 0.55-1.02 [facility] Comment on above: The validity of the calculated GFR & GFRAA in patients over 70 years has not been determined. Clinical correlation is essential. Serum or plasma urea nitroge n measurement (mass/volume)Ordered By: ED PROVIDER on 06-04-2023 Urea nitrogen [Mass/Vol] 14 mg/dL 7-18 [facility] Squamous epithelial cells de tection in urine sediment by light microscopyOrdered By: Bronson Retana on 06-04-2023 Epithelial cells.squamous LM Ql (Urine sed) 0-5 SEEN /hpf 5-10 [facility] Thin prep Papanicolaou smear with manual screeningOrdered By: ED PROVIDER on 06-04-2023 Thin prep Papanicolaou smear with manual screening 21 U/L 15-37 [facility] Thin prep Papanicolaou smear with manual screening 10 5-15 [facility] Urine blood detectionOrdered By: Bronson Retana on 06-04-2023 RBC Ql (U) 10 /ul Negative [facility] RBC Ql (U) 0 SEEN /hpf 0-5 [facility] Urine clarityOrdered By: Yoni Retana on 06-04-2023 Clarity (U) Clear Clear [facility] Urine color determinationOrd ered By: Bronson Retana on 06-04-2023 Color (U) Yellow Yellow [facility] Urine glucose detectionOrder ed By: Bronson Retana on 06-04-2023 Glucose Ql (U) 1000 mg/dl Normal [facility] Urine leukocyte esterase det ection by dipstickOrdered By: Bronson Retana on 06-04-2023 Leukocyte esterase Test strip Ql (U) 25 /ul Negative [facility] Urine pHOrdered By: Bronson bonilla on 06-04-2023 pH (U) 6.5 [pH] 5.0 - 8.0 [facility] Urine sediment bacteria coun t by microscopy (number/high power field)Ordered By: Bronson Retana on 06-04-2023 Bacteria LM.HPF (Urine sed) [#/Area] 0 /[HPF] None Seen [facility] Urine sediment yeast count b y microscopy (number/high powered field)Ordered By: Bronson Retana on 06-04-2023 Yeast LM.HPF (Urine sed) [#/Area] RARE /hpf None Seen [facility] Urine specific gravity measu rementOrdered By: Bronson Retana on 06-04-2023 Specific gravity (U) [Rel density] 1.010 1.002-1.03 0 [facility] Urobilinogen Auto test strip Ql (U)Ordered By: Bronson Retana on 06-04-2023 Urobilinogen Ql (U) Normal mg/dl Normal [facility] Absolute lymphocyte countOrd ered By: Dr. Peterson on 03-28-2023 Lymphocytes Auto (Unsp spec) [#/Vol] 2.76 10*3/uL 0.83-4.51 [facility] Basophil percentageOrdered B y: Dr. Peterson on 03-28-2023 Basophils/100 WBC (Bld) 0.5 % 0-1 [facility] Bilirubin [Mass/Vol] 0.60 mg/dL 0.20-1.00 [facility] Comment on above: For patients on eltr ombopag therapy, use of Dimension [place] TBIL is not recommended. Chloride [Moles/Vol] 100 mmol/L 98-107 [facility] Eosinophils/100 WBC (Bld) 0.9 % 0-5 [facility] Glucose [Mass/Vol] 374 mg/dL 74-106 [facility] Comment on above: Glucose result great er than or equal to 200 mg/dLsuggests DIABETES MELLITUS per A.D.A. criteria. Neutrophils (Bld) [#/Vol] 8.7 10*3/uL 2.0-7.7 [facility] Neutrophils/100 WBC (Bld) 71.5 % 47-70 [facility] Potassium [Moles/Vol] 4.3 mmol/L 3.5-5.1 [facility] Protein [Mass/Vol] 7.6 g/dL 6.4-8.2 [facility] Sodium [Moles/Vol] 134 mmol/L 136-145 [facility] WBC (Bld) [#/Vol] 12.1 10*3/uL 4.4-11.[address] [facility] Blood erythrocytes count (nu mber/volume)Ordered By: Dr. Peterson on 03-28-2023 RBC (Bld) [#/Vol] 4.33 10*6/uL 4.2-5.[address] [facility] Blood hemoglobin measurement (mass/volume)Ordered By: Dr. Peterson on 03-28-2023 Hemoglobin (Bld) [Mass/Vol] 12.4 g/dL 12.0-15.0 [facility] Blood lymphocytes/100 leukoc ytesOrdered By: Dr. Peterson on 03-28-2023 Lymphocytes/100 WBC (Bld) 22.8 % 19-41 [facility] Blood monocytes/100 leukocyt esOrdered By: Dr. Peterson on 03-28-2023 Monocytes/100 WBC (Bld) 3.9 % 0-10 [facility] Blood platelet mean volumeOr dered By: Dr. Peterson on 03-28-2023 Platelet mean volume (Bld) [Entitic vol] 9.3 fL 6.2-12.0 [facility] Determination of erythrocyte mean corpuscular volume (MCV)Ordered By: Dr. Peterson on 03-28-2023 MCV (RBC) [Entitic vol] 90.5 fL 81-99 [facility] Hematocrit Auto (Bld) [Volum e fraction]Ordered By: Dr. Peterson on 03-28-2023 Hematocrit (Bld) [Volume fraction] 39.2 % 37-47 [facility] Laboratory - Chemistry and C hemistry - challengeOrdered By: Dr. Peterson on 03-28-2023 ALP [Catalytic activity/Vol] 75 U/L 45-117 [facility] ALT [Catalytic activity/Vol] 32 U/L 13-56 [facility] CO2 [Moles/Vol] 22.0 mmol/L 21.0-32.0 [facility] Globulin (S) [Mass/Vol] 4.1 g/dL 2.2-4.2 [facility] Urea nitrogen/Creatinine [Mass ratio] 17.9 mg/mg 10-20 [facility] Laboratory - Hematology and Cell countsOrdered By: Dr. Peterson on 03-28-2023 Erythrocyte distribution width (RBC) [Entitic vol] 42.0 fL 35.1-43.9 [facility] Erythrocyte distribution width (RBC) [Ratio] 12.7 % 11.6-14.6 [facility] Immature granulocytes/100 WBC (Bld) 0.400 % 0.0-0.9 [facility] Comment on above: IG% - Immature Granu locytes (promyelocytes, myelocytes and metamyelocytes) > 1% indicates that a LEFT SHIFT is Present. MCH (RBC) [Entitic mass] 28.6 pg 27.0-32.0 [facility] Nucleated RBC/100 WBC (Bld) [Ratio] 0 % 0-5 [facility] MCHC Auto (RBC) [Mass/Vol]Or dered By: Dr. Peterson on 03-28-2023 MCHC (RBC) [Mass/Vol] 31.6 g/dL 32-36 [facility] No Panel InformationOrdered By: Dr. Peterson on 03-28-2023 Estimated Creatinine Clearance Calc 32.47 ml/min [facility] Estimated GFR (MDRD) Amer 52 mL/min >60 [facility] Comment on above: GFR Calc Estimated GFR (MDRD) Non-Af Amer 43 mL/min >60 [facility] Comment on above: Non- GFR Calc Platelets bldOrdered By: Dr. Peterson on 03-28-2023 Platelets (Bld) [#/Vol] 347 10*3/uL 150-450 [facility] Serum or plasma albumin tai urement (mass/volume)Ordered By: Dr. Peterson on 03-28-2023 Albumin [Mass/Vol] 3.5 g/dL 3.2-5.0 [facility] Serum or plasma albumin/glob ulin mass ratioOrdered By: Dr. Peterson on 03-28-2023 Albumin/Globulin [Mass ratio] 0.9 {ratio} 0.9-2.4 [facility] Serum or plasma calcium tai urement (mass/volume)Ordered By: Dr. Peterson on 03-28-2023 Calcium [Mass/Vol] 9.1 mg/dL 8.5-10.1 [facility] Serum or plasma creatinine m easurement (mass/volume)Ordered By: Dr. Peterson on 03-28-2023 Creatinine [Mass/Vol] 1.34 mg/dL 0.55-1.02 [facility] Comment on above: The validity of the calculated GFR & GFRAA in patients over 70 years has not been determined. Clinical correlation is essential. Serum or plasma urea nitroge n measurement (mass/volume)Ordered By: Dr. Peterson on 03-28-2023 Urea nitrogen [Mass/Vol] 24 mg/dL 7-18 [facility] Thin prep Papanicolaou smear with manual screeningOrdered By: Dr. Peterson on 03-28-2023 Thin prep Papanicolaou smear with manual screening 29 U/L 15-37 [facility] Thin prep Papanicolaou smear with manual screening 12 5-15 [facility] Basophil percentageOrdered B y: Lizet Linares on 03-16-2023 Chloride [Moles/Vol] 105 mmol/L 98-107 [facility] Glucose [Mass/Vol] 171 mg/dL 74-106 [facility] Comment on above: Fasting Glucose resu lt greater than or equal to 126 mg/dL suggests DIABETES MELLITUS per A.D.A. criteria. Potassium [Moles/Vol] 3.8 mmol/L 3.5-5.1 [facility] Sodium [Moles/Vol] 139 mmol/L 136-145 [facility] WBC (Bld) [#/Vol] 7.0 10*3/uL 4.4-11.0 [facility] Blood erythrocytes count (nu mber/volume)Ordered By: Lizet Linares on 03-16-2023 RBC (Bld) [#/Vol] 3.74 10*6/uL 4.2-5.[address] [facility] Blood hemoglobin measurement (mass/volume)Ordered By: Lizet Linares on 03-16-2023 Hemoglobin (Bld) [Mass/Vol] 10.8 g/dL 12.0-15.0 [facility] Blood platelet mean volumeOr dered By: Lizet Linares on 03-16-2023 Platelet mean volume (Bld) [Entitic vol] 9.6 fL 6.2-12.0 [facility] Determination of erythrocyte mean corpuscular volume (MCV)Ordered By: Lizet Linares on 03-16-2023 MCV (RBC) [Entitic vol] 93.0 fL 81-99 [facility] Hematocrit Auto (Bld) [Volum e fraction]Ordered By: Lizet Linares on 03-16-2023 Hematocrit (Bld) [Volume fraction] 34.8 % 37-47 [facility] Laboratory - Chemistry and C hemistry - challengeOrdered By: Lizet Linares on 03-16-2023 CO2 [Moles/Vol] 27.0 mmol/L 21.0-32.0 [facility] Urea nitrogen/Creatinine [Mass ratio] 18.0 mg/mg 10-20 [facility] Laboratory - Hematology and Cell countsOrdered By: Lizet Linares on 03-16-2023 Erythrocyte distribution width (RBC) [Entitic vol] 44.1 fL 35.1-43.9 [facility] Erythrocyte distribution width (RBC) [Ratio] 13.0 % 11.6-14.6 [facility] MCH (RBC) [Entitic mass] 28.9 pg 27.0-32.0 [facility] MCHC Auto (RBC) [Mass/Vol]Or dered By: Lizet Linares on 03-16-2023 MCHC (RBC) [Mass/Vol] 31.0 g/dL 32-36 [facility] No Panel InformationOrdered By: Lizet Linares on 03-16-2023 Estimated GFR (MDRD) Amer 73 mL/min >60 [facility] Comment on above: GFR Calc Estimated GFR (MDRD) Non-Af Amer 60 mL/min >60 [facility] Comment on above: Non- GFR Calc Platelets bldOrdered By: Bart Linares on 03-16-2023 Platelets (Bld) [#/Vol] 277 10*3/uL 150-450 [facility] Serum or plasma calcium tai urement (mass/volume)Ordered By: Lizet Linares on 03-16-2023 Calcium [Mass/Vol] 8.8 mg/dL 8.5-10.1 [facility] Serum or plasma creatinine m easurement (mass/volume)Ordered By: Lizet Linares on 03-16-2023 Creatinine [Mass/Vol] 1.00 mg/dL 0.55-1.02 [facility] Comment on above: The validity of the calculated GFR & GFRAA in patients over 70 years has not been determined. Clinical correlation is essential. Serum or plasma urea nitroge n measurement (mass/volume)Ordered By: Lizet Linares on 03-16-2023 Urea nitrogen [Mass/Vol] 18 mg/dL 7-18 [facility] Thin prep Papanicolaou smear with manual screeningOrdered By: Lizet Linares on 03-16-2023 Thin prep Papanicolaou smear with manual screening 7 5-15 [facility] Basophil percentageOrdered B y: Ganesh Garcia on 03-02-2023 Chloride [Moles/Vol] 106 mmol/L 98-107 [facility] Glucose [Mass/Vol] 241 mg/dL 74-106 [facility] Comment on above: Glucose result great er than or equal to 200 mg/dLsuggests DIABETES MELLITUS per A.D.A. criteria. Potassium [Moles/Vol] 4.2 mmol/L 3.5-5.1 [facility] Sodium [Moles/Vol] 138 mmol/L 136-145 [facility] WBC (Bld) [#/Vol] 6.4 10*3/uL 4.4-11.0 [facility] Blood erythrocytes count (nu mber/volume)Ordered By: Ganesh Garcia on 03-02-2023 RBC (Bld) [#/Vol] 3.81 10*6/uL 4.2-5.[address] [facility] Blood hemoglobin measurement (mass/volume)Ordered By: Ganesh Garcia on 03-02-2023 Hemoglobin (Bld) [Mass/Vol] 11.2 g/dL 12.0-15.0 [facility] Blood platelet mean volumeOr dered By: Ganesh Garcia on 03-02-2023 Platelet mean volume (Bld) [Entitic vol] 9.5 fL 6.2-12.0 [facility] Determination of erythrocyte mean corpuscular volume (MCV)Ordered By: Ganesh Garcia on 03-02-2023 MCV (RBC) [Entitic vol] 92.7 fL 81-99 [facility] Hematocrit Auto (Bld) [Volum e fraction]Ordered By: Ganesh Garcia on 03-02-2023 Hematocrit (Bld) [Volume fraction] 35.3 % 37-47 [facility] Laboratory - Chemistry and C hemistry - challengeOrdered By: Ganesh Garcia on 03-02-2023 CO2 [Moles/Vol] 26.0 mmol/L 21.0-32.0 [facility] Urea nitrogen/Creatinine [Mass ratio] 21.9 mg/mg 10-20 [facility] - Hematology and Cell countsOrdered By: Ganesh Garcia on 03-02-2023 Erythrocyte distribution width (RBC) [Entitic vol] 44.9 fL 35.1-43.9 [facility] Erythrocyte distribution width (RBC) [Ratio] 13.2 % 11.6-14.6 [facility] MCH (RBC) [Entitic mass] 29.4 pg 27.0-32.0 [facility] MCHC Auto (RBC) [Mass/Vol]Or dered By: Ganesh Garcia on 03-02-2023 MCHC (RBC) [Mass/Vol] 31.7 g/dL 32-36 [facility] No Panel InformationOrdered By: Ganesh Garcia on 03-02-2023 Estimated GFR (MDRD) Amer 81 mL/min >60 [facility] Comment on above: GFR Calc Estimated GFR (MDRD) Non-Af Amer 67 mL/min >60 [facility] Comment on above: Non- GFR Calc Platelets bldOrdered By: Robert Garcia on 03-02-2023 Platelets (Bld) [#/Vol] 292 10*3/uL 150-450 [facility] Serum or plasma calcium tai urement (mass/volume)Ordered By: Ganesh Garcia on 03-02-2023 Calcium [Mass/Vol] 9.0 mg/dL 8.5-10.1 [facility] Serum or plasma creatinine m easurement (mass/volume)Ordered By: Ganesh Garcia on 03-02-2023 Creatinine [Mass/Vol] 0.92 mg/dL 0.55-1.02 [facility] Comment on above: The validity of the calculated GFR & GFRAA in patients over 70 years has not been determined. Clinical correlation is essential. Serum or plasma urea nitroge n measurement (mass/volume)Ordered By: Ganesh Garcia on 03-02-2023 Urea nitrogen [Mass/Vol] 20 mg/dL 7-18 [facility] Thin prep Papanicolaou smear with manual screeningOrdered By: Ganesh Garcia on 03-02-2023 Thin prep Papanicolaou smear with manual screening 6 5-15 [facility] - Drug toxicology Ordered By: Dr. Renteria on 03-01-2023 Amphetamines Ql (U) Negative <1000 ng/mL [facility] Benzodiazepines Ql (U) Negative < 200 ng/mL [facility] Cannabinoids Screen Ql (U) Negative < 50 ng/mL [facility] Cocaine Ql (U) Negative < 300 ng/mL [facility] Opiates Ql (U) Negative < 300 ng/mL [facility] No Panel InformationOrdered By: Dr. Renteria on 03-01-2023 MDMA (Ecstasy) Screen Negative < 500 ng/mL [facility] Miscellaneous Test See comment [facility] Comment on above: [id number] 6+OXYCODONE-B UND (ng/mL) DRUG RESULT SCREEN CUTOFF____ Amphetamines,Urine Negative ng/mL 1000 Amphetamine test includes Amphetamine and Methamphetamine.Barbiturates Negative ng/mL 200Benzodiazepines Negative ng/mL 200Cannabinoid Negative ng/mL 20Cocaine (Metab) Negative ng/mL 300Opiates Negative ng/mL 300 Opiates test includes Codeine, Morphine, Hydromorphone, Hydrocodone. Oxycodone/Oxymorphone,Urine Negative ng/mL 300 Test includes Oxydodone and Oxymorphone. TESTING PERFORMED AT [facility]. ORIGINAL REPORT ON FILE IN LAB CONTAINS ADDITIONAL TEST SITE INFORMATION. Urine Barbiturates Screen Negative < 200 ng/mL [facility] Urine Drug Screen Comment [facility] Comment on above: CONFIRMATORY TESTING FOR ALL [...] Urine Methadone Screen Negative < 300 ng/mL [facility] Urine phencyclidine (PCP) de tectionOrdered By: Dr. Renteria on 03-01-2023 Phencyclidine Ql (U) Negative < 25 ng/mL [facility] Basophil percentageOrdered B y: Lizet Linares on 02-16-2023 Chloride [Moles/Vol] 102 mmol/L 98-107 [facility] Glucose [Mass/Vol] 380 mg/dL 74-106 [facility] Comment on above: Glucose result great er than or equal to 200 mg/dLsuggests DIABETES MELLITUS per A.D.A. criteria. Potassium [Moles/Vol] 4.1 mmol/L 3.5-5.1 [facility] Sodium [Moles/Vol] 133 mmol/L 136-145 [facility] WBC (Bld) [#/Vol] 6.8 10*3/uL 4.4-11.0 [facility] Blood erythrocytes count (nu mber/volume)Ordered By: Lizet Linares on 02-16-2023 RBC (Bld) [#/Vol] 3.97 10*6/uL 4.2-5.[address] [facility] Blood hemoglobin measurement (mass/volume)Ordered By: Lizet Linares on 02-16-2023 Hemoglobin (Bld) [Mass/Vol] 11.8 g/dL 12.0-15.0 [facility] Blood platelet mean volumeOr dered By: Lizet Linares on 02-16-2023 Platelet mean volume (Bld) [Entitic vol] 9.6 fL 6.2-12.0 [facility] Determination of erythrocyte mean corpuscular volume (MCV)Ordered By: Lizet Linares on 02-16-2023 MCV (RBC) [Entitic vol] 92.2 fL 81-99 [facility] Hematocrit Auto (Bld) [Volum e fraction]Ordered By: Lizet Linares on 02-16-2023 Hematocrit (Bld) [Volume fraction] 36.6 % 37-47 [facility] - Chemistry and C hemistry - challengeOrdered By: Lizet Linares on 02-16-2023 CO2 [Moles/Vol] 29.0 mmol/L 21.0-32.0 [facility] Urea nitrogen/Creatinine [Mass ratio] 19.4 mg/mg 10-20 [facility] - Hematology and Cell countsOrdered By: Lizet Linares on 02-16-2023 Erythrocyte distribution width (RBC) [Entitic vol] 45.4 fL 35.1-43.9 [facility] Erythrocyte distribution width (RBC) [Ratio] 13.4 % 11.6-14.6 [facility] MCH (RBC) [Entitic mass] 29.7 pg 27.0-32.0 [facility] MCHC Auto (RBC) [Mass/Vol]Or dered By: Lizet Linares on 02-16-2023 MCHC (RBC) [Mass/Vol] 32.2 g/dL [facility] No Panel InformationOrdered By: Lizet Linares on 02-16-2023 Estimated GFR (MDRD) Amer 70 mL/min >60 [facility] Comment on above: GFR Calc Estimated GFR (MDRD) Non-Af Amer 58 mL/min >60 [facility] Comment on above: Non- GFR Calc Platelets bldOrdered By: Bart Linares on 02-16-2023 Platelets (Bld) [#/Vol] 251 10*3/uL 150-450 [facility] Serum or plasma calcium tai urement (mass/volume)Ordered By: Lizet Linares on 02-16-2023 Calcium [Mass/Vol] 8.7 mg/dL 8.5-10.1 [facility] Serum or plasma creatinine m easurement (mass/volume)Ordered By: Lizet Linares on 02-16-2023 Creatinine [Mass/Vol] 1.03 mg/dL 0.55-1.02 [facility] Comment on above: The validity of the calculated GFR & GFRAA in patients over 70 years has not been determined. Clinical correlation is essential. Serum or plasma urea nitroge n measurement (mass/volume)Ordered By: Lizet Linares on 02-16-2023 Urea nitrogen [Mass/Vol] 20 mg/dL 7-18 [facility] Thin prep Papanicolaou smear with manual screeningOrdered By: Lizet Linares on 02-16-2023 Thin prep Papanicolaou smear with manual screening 2 5-15 [facility] Absolute lymphocyte countOrd ered By: Lizet Linares on 02-02-2023 Lymphocytes Auto (Unsp spec) [#/Vol] 3.01 10*3/uL 0.83-4.51 [facility] Basophil percentageOrdered B y: Lizet Linares on 02-02-2023 Basophil percentage 247 mg/dL 74-[address] [facility] Basophil percentage 136 mmol/L 136-[address] [facility] Basophil percentage 4.2 mmol/L 3.5-5.[address] [facility] Basophil percentage 103 mmol/L 98-[address] [facility] Basophils (Bld) [#/Vol] 9.3 10*3/uL 4.4-11.0 [facility] Basophils (Bld) [#/Vol] 5.7 10*3/uL 2.0-7.7 [facility] Basophils/100 WBC (Bld) 60.8 % 47-70 [facility] Basophils/100 WBC (Bld) 0.4 % 0-5 [facility] Basophils/100 WBC (Bld) 0.6 % 0-1 [facility] Chloride [Moles/Vol] 103 mmol/L 98-107 [facility] Eosinophils/100 WBC (Bld) 0.4 % 0-5 [facility] Glucose [Mass/Vol] 247 mg/dL 74-106 [facility] Comment on above: Glucose result great er than or equal to 200 mg/dLsuggests DIABETES MELLITUS per A.D.A. criteria. Neutrophils (Bld) [#/Vol] 5.7 10*3/uL 2.0-7.7 [facility] Neutrophils/100 WBC (Bld) 60.8 % 47-70 [facility] Potassium [Moles/Vol] 4.2 mmol/L 3.5-5.1 [facility] Sodium [Moles/Vol] 136 mmol/L 136-145 [facility] WBC (Bld) [#/Vol] 9.3 10*3/uL 4.4-11.0 [facility] Blood erythrocytes count (nu mber/volume)Ordered By: Lizet Linares on 02-02-2023 RBC (Bld) [#/Vol] 3.83 10*6/uL 4.2-5.[address] [facility] Blood hemoglobin measurement (mass/volume)Ordered By: Lizet Linares on 02-02-2023 Hemoglobin (Bld) [Mass/Vol] 11.3 g/dL 12.0-15.0 [facility] Blood lymphocytes/100 leukoc ytesOrdered By: Lizet Linares on 02-02-2023 Lymphocytes/100 WBC (Bld) 32.3 % 19-41 [facility] Blood monocytes/100 leukocyt esOrdered By: marcelle Linares on 02-02-2023 Monocytes/100 WBC (Bld) 5.6 % 0-10 [facility] Blood platelet mean volumeOr dered By: Lizet Linares on 02-02-2023 Platelet mean volume (Bld) [Entitic vol] 9.6 fL 6.2-12.0 [facility] Determination of erythrocyte mean corpuscular volume (MCV)Ordered By: Lizte Linares on 02-02-2023 MCV (RBC) [Entitic vol] 90.9 fL 81-99 [facility] Hematocrit Auto (Bld) [Volum e fraction]Ordered By: Lizet Linares on 02-02-2023 Hematocrit (Bld) [Volume fraction] 34.8 % 37-47 [facility] - Chemistry and C hemistry - challengeOrdered By: Lizet Linares on 02-02-2023 CO2 [Moles/Vol] 26.0 mmol/L 21.0-32.0 [facility] Urea nitrogen/Creatinine [Mass ratio] 28.8 mg/mg 10-20 [facility] - Hematology and Cell countsOrdered By: Lizet Linares on 02-02-2023 Erythrocyte distribution width (RBC) [Entitic vol] 44.8 fL 35.1-43.9 [facility] Erythrocyte distribution width (RBC) [Ratio] 13.3 % 11.6-14.6 [facility] Immature granulocytes/100 WBC (Bld) 0.300 % 0.0-0.9 [facility] Comment on above: IG% - Immature Granu locytes (promyelocytes, myelocytes and metamyelocytes) > 1% indicates that a LEFT SHIFT is Present. MCH (RBC) [Entitic mass] 29.5 pg 27.0-32.0 [facility] Nucleated RBC/100 WBC (Bld) [Ratio] 0 % 0-5 [facility] MCHC Auto (RBC) [Mass/Vol]Or dered By: Lizet Linares on 02-02-2023 MCHC (RBC) [Mass/Vol] 32.5 g/dL 32-36 [facility] No Panel InformationOrdered By: Lizet Linares on 02-02-2023 Estimated GFR (MDRD) Amer 65 mL/min >60 [facility] Comment on above: GFR Calc Estimated GFR (MDRD) Non-Af Amer 53 mL/min >60 [facility] Comment on above: Non- GFR Calc 29.5 pg 27.0-32.0 [facility] 13.3 % 11.6-14.6 [facility] 44.8 fl 35.1-43.9 [facility] 0.300 % 0.0-0.9 [facility] 0 % 0-5 [facility] 53 mL/min >60 [facility] 65 mL/min >60 [facility] 28.8 RATIO 10-20 [facility] 26.0 mmol/L 21.0-32.0 [facility] Platelets bldOrdered By: Bart Linares on 02-02-2023 Platelets (Bld) [#/Vol] 299 10*3/uL 150-450 [facility] Serum or plasma calcium tai urement (mass/volume)Ordered By: Lizet Linares on 02-02-2023 Calcium [Mass/Vol] 8.0 mg/dL 8.5-10.1 [facility] Serum or plasma creatinine m easurement (mass/volume)Ordered By: Lizet Linares on 02-02-2023 Creatinine [Mass/Vol] 1.11 mg/dL 0.55-1.02 [facility] Comment on above: The validity of the calculated GFR & GFRAA in patients over 70 years has not been determined. Clinical correlation is essential. Serum or plasma urea nitroge n measurement (mass/volume)Ordered By: Lizet Linares on 02-02-2023 Urea nitrogen [Mass/Vol] 32 mg/dL 7-18 [facility] Thin prep Papanicolaou smear with manual screeningOrdered By: Lizet Linares on 02-02-2023 Thin prep Papanicolaou smear with manual screening 7 5-15 [facility] Absolute lymphocyte countOrd ered By: ED PROVIDER on 01-29-2023 Lymphocytes Auto (Unsp spec) [#/Vol] 2.44 10*3/uL 0.83-4.51 [facility] Basophil percentageOrdered B y: ED PROVIDER on 01-29-2023 Basophil percentage 311 mg/dL 74-[address] [facility] Basophil percentage 135 mmol/L 136-[address] [facility] Basophil percentage 4.1 mmol/L 3.5-5.[address] [facility] Basophil percentage 99 mmol/L 98-[address] [facility] Basophils (Bld) [#/Vol] 12.0 10*3/uL 4.4-11.0 [facility] Basophils (Bld) [#/Vol] 9.0 10*3/uL 2.0-7.7 [facility] Basophils/100 WBC (Bld) 74.7 % 47-70 [facility] Basophils/100 WBC (Bld) 0.0 % 0-5 [facility] Basophils/100 WBC (Bld) 0.3 % 0-1 [facility] Chloride [Moles/Vol] 99 mmol/L 98-107 [facility] Eosinophils/100 WBC (Bld) 0.0 % 0-5 [facility] Glucose [Mass/Vol] 311 mg/dL 74-106 [facility] Comment on above: Glucose result great er than or equal to 200 mg/dLsuggests DIABETES MELLITUS per A.D.A. criteria. Neutrophils (Bld) [#/Vol] 9.0 10*3/uL 2.0-7.7 [facility] Neutrophils/100 WBC (Bld) 74.7 % 47-70 [facility] Potassium [Moles/Vol] 4.1 mmol/L 3.5-5.1 [facility] Sodium [Moles/Vol] 135 mmol/L 136-145 [facility] WBC (Bld) [#/Vol] 12.0 10*3/uL 4.4-11.[address] [facility] Blood erythrocytes count (nu mber/volume)Ordered By: ED PROVIDER on 01-29-2023 RBC (Bld) [#/Vol] 4.25 10*6/uL 4.2-5.[address] [facility] Blood hemoglobin measurement (mass/volume)Ordered By: ED PROVIDER on 01-29-2023 Hemoglobin (Bld) [Mass/Vol] 12.4 g/dL 12.0-15.0 [facility] Blood lymphocytes/100 leukoc ytesOrdered By: ED PROVIDER on 01-29-2023 Lymphocytes/100 WBC (Bld) 20.3 % 19-41 [facility] Blood monocytes/100 leukocyt esOrdered By: ED PROVIDER on 01-29-2023 Monocytes/100 WBC (Bld) 4.0 % 0-10 [facility] Blood platelet mean volumeOr dered By: ED PROVIDER on 01-29-2023 Platelet mean volume (Bld) [Entitic vol] 9.3 fL 6.2-12.0 [facility] Determination of erythrocyte mean corpuscular volume (MCV)Ordered By: ED PROVIDER on 01-29-2023 MCV (RBC) [Entitic vol] 89.2 fL 81-99 [facility] Hematocrit Auto (Bld) [Volum e fraction]Ordered By: ED PROVIDER on 01-29-2023 Hematocrit (Bld) [Volume fraction] 37.9 % 37-47 [facility] - Chemistry and C hemistry - challengeOrdered By: ED PROVIDER on 01-29-2023 CO2 [Moles/Vol] 28.0 mmol/L 21.0-32.0 [facility] Urea nitrogen/Creatinine [Mass ratio] 22.3 mg/mg 10-20 [facility] - Hematology and Cell countsOrdered By: ED PROVIDER on 01-29-2023 Erythrocyte distribution width (RBC) [Entitic vol] 43.1 fL 35.1-43.9 [facility] Erythrocyte distribution width (RBC) [Ratio] 13.2 % 11.6-14.6 [facility] Immature granulocytes/100 WBC (Bld) 0.700 % 0.0-0.9 [facility] Comment on above: IG% - Immature Granu locytes (promyelocytes, myelocytes and metamyelocytes) > 1% indicates that a LEFT SHIFT is Present. MCH (RBC) [Entitic mass] 29.2 pg 27.0-32.0 [facility] Nucleated RBC/100 WBC (Bld) [Ratio] 0 % 0-5 [facility] MCHC Auto (RBC) [Mass/Vol]Or dered By: ED PROVIDER on 01-29-2023 MCHC (RBC) [Mass/Vol] 32.7 g/dL 32-36 [facility] No Panel InformationOrdered By: Dr. Dunn on 01-29-2023 Troponin I High Sensitivity 13 pg/mL 3.0-54.0 [facility] Comment on above: Please Note: New Carolann t Units and Gender Specific Reference Ranges. For more information see Policy Stat Procedure [place] High Sensitivity Troponin (TNIH) and attachments. 13 pg/mL 3.0-54.0 [facility] D-Dimer Quantitative (PE/DVT) 0.39 FEU/ug/m 0.27-0.49 [facility] Comment on above: NORMAL D-Dimer level (<0.50) indicates no DVT or PE. 0.39 FEU/ug/m 0.27-0.49 [facility] No Panel InformationOrdered By: ED PROVIDER on 01-29-2023 Estimated Creatinine Clearance Calc 38.85 ml/min [facility] Estimated GFR (MDRD) Amer 64 mL/min >60 [facility] Comment on above: GFR Calc Estimated GFR (MDRD) Non-Af Amer 53 mL/min >60 [facility] Comment on above: Non- GFR Calc 29.2 pg 27.0-32.0 [facility] 13.2 % 11.6-14.6 [facility] 43.1 fl 35.1-43.9 [facility] 0.700 % 0.0-0.9 [facility] 0 % 0-5 [facility] 53 mL/min >60 [facility] 64 mL/min >60 [facility] 38.85 ml/min [facility] 22.3 RATIO 10-20 [facility] 28.0 mmol/L 21.0-32.0 [facility] Platelets bldOrdered By: ED PROVIDER on 01-29-2023 Platelets (Bld) [#/Vol] 347 10*3/uL 150-450 [facility] Serum or plasma calcium tai urement (mass/volume)Ordered By: ED PROVIDER on 01-29-2023 Calcium [Mass/Vol] 9.3 mg/dL 8.5-10.1 [facility] Serum or plasma creatinine m easurement (mass/volume)Ordered By: ED PROVIDER on 01-29-2023 Creatinine [Mass/Vol] 1.12 mg/dL 0.55-1.02 [facility] Comment on above: The validity of the calculated GFR & GFRAA in patients over 70 years has not been determined. Clinical correlation is essential. Serum or plasma urea nitroge n measurement (mass/volume)Ordered By: ED PROVIDER on 01-29-2023 Urea nitrogen [Mass/Vol] 25 mg/dL 7-18 [facility] Thin prep Papanicolaou smear with manual screeningOrdered By: ED PROVIDER on 01-29-2023 Thin prep Papanicolaou smear with manual screening 8 5-15 [facility] Basophil percentageOrdered B y: Ganesh Garcia on 01-19-2023 Basophil percentage 197 mg/dL 74-[address] [facility] Basophil percentage 138 mmol/L 136-[address] [facility] Basophil percentage 4.0 mmol/L 3.5-5.[address] [facility] Basophil percentage 106 mmol/L 98-[address] [facility] Basophils (Bld) [#/Vol] 6.4 10*3/uL 4.4-11.0 [facility] Chloride [Moles/Vol] 106 mmol/L 98-107 [facility] Glucose [Mass/Vol] 197 mg/dL 74-106 [facility] Comment on above: Fasting Glucose resu lt greater than or equal to 126 mg/dL suggests DIABETES MELLITUS per A.D.A. criteria. Potassium [Moles/Vol] 4.0 mmol/L 3.5-5.1 [facility] Sodium [Moles/Vol] 138 mmol/L 136-145 [facility] WBC (Bld) [#/Vol] 6.4 10*3/uL 4.4-11.0 [facility] Blood erythrocytes count (nu mber/volume)Ordered By: Ganesh Garcia on 01-19-2023 RBC (Bld) [#/Vol] 3.58 10*6/uL 4.2-5.[address] [facility] Blood hemoglobin measurement (mass/volume)Ordered By: Ganesh Garcia on 01-19-2023 Hemoglobin (Bld) [Mass/Vol] 10.4 g/dL 12.0-15.0 [facility] Blood platelet mean volumeOr dered By: Ganesh Garcia on 01-19-2023 Platelet mean volume (Bld) [Entitic vol] 9.9 fL 6.2-12.0 [facility] Determination of erythrocyte mean corpuscular volume (MCV)Ordered By: Ganesh Garcia on 01-19-2023 MCV (RBC) [Entitic vol] 92.5 fL 81-99 [facility] Hematocrit Auto (Bld) [Volum e fraction]Ordered By: Ganesh Garcia on 01-19-2023 Hematocrit (Bld) [Volume fraction] 33.1 % 37-47 [facility] - Chemistry and C hemistry - challengeOrdered By: aGnesh Garcia on 01-19-2023 CO2 [Moles/Vol] 27.0 mmol/L 21.0-32.0 [facility] Urea nitrogen/Creatinine [Mass ratio] 19.3 mg/mg 10-20 [facility] - Hematology and Cell countsOrdered By: Ganesh Garcia on 01-19-2023 Erythrocyte distribution width (RBC) [Entitic vol] 46.8 fL 35.1-43.9 [facility] Erythrocyte distribution width (RBC) [Ratio] 13.6 % 11.6-14.6 [facility] MCH (RBC) [Entitic mass] 29.1 pg 27.0-32.0 [facility] MCHC Auto (RBC) [Mass/Vol]Or dered By: Ganesh Garcia on 01-19-2023 MCHC (RBC) [Mass/Vol] 31.4 g/dL 32-36 [facility] No Panel InformationOrdered By: Ganesh Garcia on 01-19-2023 Estimated GFR (MDRD) Amer 74 mL/min >60 [facility] Comment on above: GFR Calc Estimated GFR (MDRD) Non-Af Amer 61 mL/min >60 [facility] Comment on above: Non- GFR Calc 29.1 pg 27.0-32.0 [facility] 13.6 % 11.6-14.6 [facility] 46.8 fl 35.1-43.9 [facility] 61 mL/min >60 [facility] 74 mL/min >60 [facility] 19.3 RATIO 10-20 [facility] 27.0 mmol/L 21.0-32.0 [facility] Platelets bldOrdered By: Robert Garcia on 01-19-2023 Platelets (Bld) [#/Vol] 285 10*3/uL 150-450 [facility] Serum or plasma calcium tai urement (mass/volume)Ordered By: Ganesh Garcia on 01-19-2023 Calcium [Mass/Vol] 8.7 mg/dL 8.5-10.1 [facility] Serum or plasma creatinine m easurement (mass/volume)Ordered By: Ganesh Garcia on 01-19-2023 Creatinine [Mass/Vol] 0.98 mg/dL 0.55-1.02 [facility] Comment on above: The validity of the calculated GFR & GFRAA in patients over 70 years has not been determined. Clinical correlation is essential. Serum or plasma urea nitroge n measurement (mass/volume)Ordered By: Ganesh Garcia on 01-19-2023 Urea nitrogen [Mass/Vol] 19 mg/dL 7-18 [facility] Thin prep Papanicolaou smear with manual screeningOrdered By: Ganesh Garcia on 01-19-2023 Thin prep Papanicolaou smear with manual screening 5 5-15 [facility] Basophil percentageOrdered B y: Ganesh Garcia on 01-18-2023 Basophil percentage 103 mg/dL <[address] [facility] Basophil percentage 325 mg/dL <[address] [facility] Cholesterol [Mass/Vol] 103 mg/dL <200 [facility] Comment on above: <200 mg/dL Desirable 200-240 mg/dL Borderline >240 mg/dL High Risk Triglyceride [Mass/Vol] 325 mg/dL <199 [facility] Comment on above: The drugs N-Acetylcy steine and Metamizole may falsely depress this assay.Serum Triglycerides Reference Interval Normal <150 mg/dL Borderline high 150 - 199 mg/dL High 200 - 499 mg/dL Very High > or = 500 mg/dL Serum or plasma cholesterol in HDL measurement (mass/volume)Ordered By: Ganesh Garcia on 01-18-2023 Cholesterol in HDL [Mass/Vol] 23 mg/dL >40 [facility] Comment on above: The drugs N-Acetylcy steine and Metamizole may falsely depress this assay. Reference Range HDL <40 mg/dL Low HDL Cholesterol HDL >or= 60 mg/dL High HDL Cholesterol Serum or plasma cholesterol in VLDL measurement (mass/volume)Ordered By: Ganesh Garcia on 01-18-2023 Cholesterol in VLDL [Mass/Vol] 65 mg/dL 5-40 [facility] Serum or plasma low density lipoprotein (LDL) cholesterol measurement (mass/volume)Ordered By: Ganesh Garcia on 01-18-2023 Cholesterol in LDL [Mass/Vol] 15 mg/dL 0-130 [facility] Absolute lymphocyte countOrd ered By: Dr. Govea on 01-06-2023 Lymphocytes Auto (Unsp spec) [#/Vol] 2.51 10*3/uL 0.83-4.51 [facility] Basophil percentageOrdered B y: Dr. Govea on 01-06-2023 Basophil percentage 0 SEEN /hpf 0-5 [facility] Basophil percentage 170 mg/dL 74-[address] [facility] Basophil percentage 139 mmol/L 136-[address] [facility] Basophil percentage 4.6 mmol/L 3.5-5.[address] [facility] Basophil percentage 103 mmol/L 98-[address] [facility] Basophils (Bld) [#/Vol] 6.5 10*3/uL 4.4-11.0 [facility] Basophils (Bld) [#/Vol] 3.4 10*3/uL 2.0-7.7 [facility] Basophils/100 WBC (Bld) 53.1 % 47-70 [facility] Basophils/100 WBC (Bld) 1.7 % 0-5 [facility] Basophils/100 WBC (Bld) 0.5 % 0-1 [facility] Chloride [Moles/Vol] 103 mmol/L 98-107 [facility] Eosinophils/100 WBC (Bld) 1.7 % 0-5 [facility] Glucose [Mass/Vol] 170 mg/dL 74-106 [facility] Comment on above: Fasting Glucose resu lt greater than or equal to 126 mg/dL suggests DIABETES MELLITUS per A.D.A. criteria. Neutrophils (Bld) [#/Vol] 3.4 10*3/uL 2.0-7.7 [facility] Neutrophils/100 WBC (Bld) 53.1 % 47-70 [facility] Potassium [Moles/Vol] 4.6 mmol/L 3.5-5.1 [facility] Sodium [Moles/Vol] 139 mmol/L 136-145 [facility] WBC (Bld) [#/Vol] 6.5 10*3/uL 4.4-11.0 [facility] Bilirubin Test strip Ql (U)O rdered By: Dr. Govea on 01-06-2023 Bilirubin Ql (U) Negative Negative [facility] Blood erythrocytes count (nu mber/volume)Ordered By: Dr. Govea on 01-06-2023 RBC (Bld) [#/Vol] 4.01 10*6/uL 4.2-5.[address] [facility] Blood hemoglobin measurement (mass/volume)Ordered By: Dr. Govea on 01-06-2023 Hemoglobin (Bld) [Mass/Vol] 11.6 g/dL 12.0-15.0 [facility] Blood lymphocytes/100 leukoc ytesOrdered By: Dr. Govea on 01-06-2023 Lymphocytes/100 WBC (Bld) 38.7 % 19-41 [facility] Blood monocytes/100 leukocyt esOrdered By: Dr. Govea on 01-06-2023 Monocytes/100 WBC (Bld) 5.7 % 0-10 [facility] Blood platelet mean volumeOr dered By: Dr. Govea on 01-06-2023 Platelet mean volume (Bld) [Entitic vol] 9.1 fL 6.2-12.0 [facility] Determination of erythrocyte mean corpuscular volume (MCV)Ordered By: Dr. Govea on 01-06-2023 MCV (RBC) [Entitic vol] 90.8 fL 81-99 [facility] Hematocrit Auto (Bld) [Volum e fraction]Ordered By: Dr. Govea on 01-06-2023 Hematocrit (Bld) [Volume fraction] 36.4 % 37-47 [facility] Ketones Test strip Ql (U)Ord ered By: Dr. Govea on 01-06-2023 Ketones Ql (U) Negative Negative [facility] Laboratory - Chemistry and C hemistry - challengeOrdered By: Dr. Govea on 01-06-2023 CO2 [Moles/Vol] 28.0 mmol/L 21.0-32.0 [facility] Urea nitrogen/Creatinine [Mass ratio] 23.6 mg/mg 10-20 [facility] Laboratory - Hematology and Cell countsOrdered By: Dr. Govea on 01-06-2023 Erythrocyte distribution width (RBC) [Entitic vol] 44.8 fL 35.1-43.9 [facility] Erythrocyte distribution width (RBC) [Ratio] 13.6 % 11.6-14.6 [facility] Immature granulocytes/100 WBC (Bld) 0.300 % 0.0-0.9 [facility] Comment on above: IG% - Immature Granu locytes (promyelocytes, myelocytes and metamyelocytes) > 1% indicates that a LEFT SHIFT is Present. MCH (RBC) [Entitic mass] 28.9 pg 27.0-32.0 [facility] Nucleated RBC/100 WBC (Bld) [Ratio] 0 % 0-5 [facility] MCHC Auto (RBC) [Mass/Vol]Or dered By: Dr. Govea on 01-06-2023 MCHC (RBC) [Mass/Vol] 31.9 g/dL 32-36 [facility] Mucus LM Ql (Urine sed)Order ed By: Dr. Govea on 01-06-2023 Mucus Ql (Urine sed) 0 SEEN /hpf [facility] Nitrite Test strip Ql (U)Ord ered By: Dr. Govea on 01-06-2023 Nitrite Ql (U) Negative Negative [facility] No Panel InformationOrdered By: Dr. Govea on 01-06-2023 Estimated Creatinine Clearance Calc 46.78 ml/min [facility] Estimated GFR (MDRD) Amer 79 mL/min >60 [facility] Comment on above: GFR Calc Estimated GFR (MDRD) Non-Af Amer 65 mL/min >60 [facility] Comment on above: Non- GFR Calc 28.9 pg 27.0-32.0 [facility] 13.6 % 11.6-14.6 [facility] 44.8 fl 35.1-43.9 [facility] 0.300 % 0.0-0.9 [facility] 0 % 0-5 [facility] 65 mL/min >60 [facility] 79 mL/min >60 [facility] 46.78 ml/min [facility] 23.6 RATIO 10-20 [facility] 28.0 mmol/L 21.0-32.0 [facility] Platelets bldOrdered By: Dr. Govea on 01-06-2023 Platelets (Bld) [#/Vol] 295 10*3/uL 150-450 [facility] Protein Test strip Ql (U)Ord ered By: Dr. Govea on 01-06-2023 Protein Ql (U) Negative Negative [facility] Serum or plasma calcium tai urement (mass/volume)Ordered By: Dr. Govea on 01-06-2023 Calcium [Mass/Vol] 9.2 mg/dL 8.5-10.1 [facility] Serum or plasma creatinine m easurement (mass/volume)Ordered By: Dr. Govea on 01-06-2023 Creatinine [Mass/Vol] 0.93 mg/dL 0.55-1.02 [facility] Comment on above: The validity of the calculated GFR & GFRAA in patients over 70 years has not been determined. Clinical correlation is essential. Serum or plasma urea nitroge n measurement (mass/volume)Ordered By: Dr. Govea on 01-06-2023 Urea nitrogen [Mass/Vol] 22 mg/dL 7-18 [facility] Squamous epithelial cells de tection in urine sediment by light microscopyOrdered By: Dr. Govea on 01-06-2023 Epithelial cells.squamous LM Ql (Urine sed) 0 SEEN /hpf 5-10 [facility] Thin prep Papanicolaou smear with manual screeningOrdered By: Dr. Govea on 01-06-2023 Thin prep Papanicolaou smear with manual screening 8 - [facility] Urine blood detectionOrdered By: Dr. Govea on 01-06-2023 RBC Ql (U) Negative Negative [facility] RBC Ql (U) 0 SEEN /hpf 0-5 [facility] Urine clarityOrdered By: Dr. Govea on 01-06-2023 Clarity (U) Clear Clear [facility] Urine color determinationOrd ered By: Dr. Govea on 01-06-2023 Color (U) Yellow Yellow [facility] Urine glucose detectionOrder ed By: Dr. Govea on 01-06-2023 Glucose Ql (U) Normal mg/dl Normal [facility] Urine leukocyte esterase det ection by dipstickOrdered By: Dr. Govea on 01-06-2023 Leukocyte esterase Test strip Ql (U) Negative Negative [facility] Urine pHOrdered By: Dr. Jovanni hatch on 01-06-2023 pH (U) 7.0 [pH] 5.0 - 8.0 [facility] Urine sediment bacteria coun t by microscopy (number/high power field)Ordered By: Dr. Govea on 01-06-2023 Bacteria LM.HPF (Urine sed) [#/Area] 0 /[HPF] None Seen [facility] Urine specific gravity measu rementOrdered By: Dr. Govea on 01-06-2023 Specific gravity (U) [Rel density] 1.010 1.002-1.03 0 [facility] Urobilinogen Auto test strip Ql (U)Ordered By: Dr. Govea on 01-06-2023 Urobilinogen Ql (U) Normal mg/dl Normal [facility] Basophil percentageOrdered B y: Ganesh Garcia on 01-05-2023 Basophil percentage 175 mg/dL 74-[address] [facility] Basophil percentage 140 mmol/L 136-[address] [facility] Basophil percentage 4.1 mmol/L 3.5-5.[address] [facility] Basophil percentage 104 mmol/L 98-[address] [facility] Basophils (Bld) [#/Vol] 7.1 10*3/uL 4.4-11.0 [facility] Chloride [Moles/Vol] 104 mmol/L 98-107 [facility] Glucose [Mass/Vol] 175 mg/dL 74-106 [facility] Comment on above: Fasting Glucose resu lt greater than or equal to 126 mg/dL suggests DIABETES MELLITUS per A.D.A. criteria. Potassium [Moles/Vol] 4.1 mmol/L 3.5-5.1 [facility] Sodium [Moles/Vol] 140 mmol/L 136-145 [facility] WBC (Bld) [#/Vol] 7.1 10*3/uL 4.4-11.0 [facility] Blood erythrocytes count (nu mber/volume)Ordered By: Ganesh Garcia on 01-05-2023 RBC (Bld) [#/Vol] 3.70 10*6/uL 4.2-5.[address] [facility] Blood hemoglobin measurement (mass/volume)Ordered By: Ganesh Garcia on 01-05-2023 Hemoglobin (Bld) [Mass/Vol] 11.0 g/dL 12.0-15.0 [facility] Blood platelet mean volumeOr dered By: Ganesh Garcia on 01-05-2023 Platelet mean volume (Bld) [Entitic vol] 9.1 fL 6.2-12.0 [facility] Determination of erythrocyte mean corpuscular volume (MCV)Ordered By: Ganesh Garcia on 01-05-2023 MCV (RBC) [Entitic vol] 91.9 fL 81-99 [facility] Hematocrit Auto (Bld) [Volum e fraction]Ordered By: Ganesh Garcia on 01-05-2023 Hematocrit (Bld) [Volume fraction] 34.0 % 37-47 [facility] Laboratory - Chemistry and C hemistry - challengeOrdered By: Ganesh Garcia on 01-05-2023 CO2 [Moles/Vol] 28.0 mmol/L 21.0-32.0 [facility] Urea nitrogen/Creatinine [Mass ratio] 21.5 mg/mg 10-20 [facility] - Hematology and Cell countsOrdered By: Ganesh Garcia on 01-05-2023 Erythrocyte distribution width (RBC) [Entitic vol] 46.1 fL 35.1-43.9 [facility] Erythrocyte distribution width (RBC) [Ratio] 13.9 % 11.6-14.6 [facility] MCH (RBC) [Entitic mass] 29.7 pg 27.0-32.0 [facility] Auto (RBC) [Mass/Vol]Or dered By: Ganesh Garcia on 01-05-2023 MCHC (RBC) [Mass/Vol] 32.4 g/dL 32-36 [facility] No Panel InformationOrdered By: Ganesh Garcia on 01-05-2023 Estimated GFR (MDRD) Amer 75 mL/min >60 [facility] Comment on above: GFR Calc Estimated GFR (MDRD) Non-Af Amer 62 mL/min >60 [facility] Comment on above: Non- GFR Calc 29.7 pg 27.0-32.0 [facility] 13.9 % 11.6-14.6 [facility] 46.1 fl 35.1-43.9 [facility] 62 mL/min >60 [facility] 75 mL/min >60 [facility] 21.5 RATIO 10-20 [facility] 28.0 mmol/L 21.0-32.0 [facility] Platelets bldOrdered By: Robert Garcia on 01-05-2023 Platelets (Bld) [#/Vol] 299 10*3/uL 150-450 [facility] Serum or plasma calcium tai urement (mass/volume)Ordered By: Ganesh Garcia on 01-05-2023 Calcium [Mass/Vol] 9.0 mg/dL 8.5-10.1 [facility] Serum or plasma creatinine m easurement (mass/volume)Ordered By: Ganesh Garcia on 01-05-2023 Creatinine [Mass/Vol] 0.98 mg/dL 0.55-1.02 [facility] Comment on above: The validity of the calculated GFR & GFRAA in patients over 70 years has not been determined. Clinical correlation is essential. Serum or plasma urea nitroge n measurement (mass/volume)Ordered By: Ganesh Garcai on 01-05-2023 Urea nitrogen [Mass/Vol] 21 mg/dL 7-18 [facility] Thin prep Papanicolaou smear with manual screeningOrdered By: Ganesh Garcia on 01-05-2023 Thin prep Papanicolaou smear with manual screening 8 5-15 [facility] Basophil percentageOrdered B y: Lizet Linares on 12-28-2022 Basophil percentage 310 mg/dL 74-[address] [facility] Basophil percentage 137 mmol/L 136-[address] [facility] Basophil percentage 3.8 mmol/L 3.5-5.[address] [facility] Basophil percentage 103 mmol/L 98-[address] [facility] Chloride [Moles/Vol] 103 mmol/L 98-107 [facility] Glucose [Mass/Vol] 310 mg/dL 74-106 [facility] Comment on above: Glucose result great er than or equal to 200 mg/dLsuggests DIABETES MELLITUS per A.D.A. criteria. Potassium [Moles/Vol] 3.8 mmol/L 3.5-5.1 [facility] Sodium [Moles/Vol] 137 mmol/L 136-145 [facility] Laboratory - Chemistry and C hemistry - challengeOrdered By: Lizet Linares on 12-28-2022 CO2 [Moles/Vol] 26.0 mmol/L 21.0-32.0 [facility] Urea nitrogen/Creatinine [Mass ratio] 20.3 mg/mg - [facility] No Panel InformationOrdered By: Lizet Linares on 12-28-2022 Estimated GFR (MDRD) Amer 74 mL/min >60 [facility] Comment on above: GFR Calc Estimated GFR (MDRD) Non-Af Amer 61 mL/min >60 [facility] Comment on above: Non- GFR Calc 61 mL/min >60 [facility] 74 mL/min >60 [facility] 20.3 RATIO 08-13 [facility] 26.0 mmol/L 21.0-32.0 [facility] Serum or plasma calcium tai urement (mass/volume)Ordered By: Lizet Linares on 12-28-2022 Calcium [Mass/Vol] 8.7 mg/dL 8.5-10.1 [facility] Serum or plasma creatinine m easurement (mass/volume)Ordered By: Lizet Linares on 12-28-2022 Creatinine [Mass/Vol] 0.99 mg/dL 0.55-1.02 [facility] Comment on above: The validity of the calculated GFR & GFRAA in patients over 70 years has not been determined. Clinical correlation is essential. Serum or plasma urea nitroge n measurement (mass/volume)Ordered By: Lizet Linares on 12-28-2022 Urea nitrogen [Mass/Vol] 20 mg/dL 7-18 [facility] Thin prep Papanicolaou smear with manual screeningOrdered By: Juniechristajanellnatasha Linares on 12-28-2022 Thin prep Papanicolaou smear with manual screening 8 5-15 [facility] No Panel InformationOrdered By: Lizet Linares on 12-23-2022 Thyroid Stimulating Hormone (TSH) 0.40 uIU/mL 0.358-3.74 [facility] 0.40 uIU/mL 0.358-3.74 [facility] Whole blood hemoglobin A1c/t otal hemoglobin ratio (mass fraction)Ordered By: Lizet Linares on 12-23-2022 HbA1c (Bld) [Mass fraction] 7.9 % 3.8-5.6 [facility] Comment on above: Normal < 5.7 % Predi abetic 5.7 - 6.4 % Diabetic >or= 6.5 % Please note range changes. Basophil percentageOrdered B y: Lizet Linares on 12-22-2022 Basophil percentage 169 mg/dL 74-[address] [facility] Basophil percentage 138 mmol/L 136-[address] [facility] Basophil percentage 3.9 mmol/L 3.5-5.[address] [facility] Basophil percentage 104 mmol/L 98-[address] [facility] Basophils (Bld) [#/Vol] 7.4 10*3/uL 4.4-11.0 [facility] Chloride [Moles/Vol] 104 mmol/L 98-107 [facility] Glucose [Mass/Vol] 169 mg/dL 74-106 [facility] Comment on above: Fasting Glucose resu lt greater than or equal to 126 mg/dL suggests DIABETES MELLITUS per A.D.A. criteria. Potassium [Moles/Vol] 3.9 mmol/L 3.5-5.1 [facility] Sodium [Moles/Vol] 138 mmol/L 136-145 [facility] WBC (Bld) [#/Vol] 7.4 10*3/uL 4.4-11.0 [facility] Blood erythrocytes count (nu mber/volume)Ordered By: Lizet Linares on 12-22-2022 RBC (Bld) [#/Vol] 3.75 10*6/uL 4.2-5.[address] [facility] Blood hemoglobin measurement (mass/volume)Ordered By: Lizet Linares on 12-22-2022 Hemoglobin (Bld) [Mass/Vol] 10.6 g/dL 12.0-15.0 [facility] Blood platelet mean volumeOr dered By: Lizet Linares on 12-22-2022 Platelet mean volume (Bld) [Entitic vol] 9.7 fL 6.2-12.0 [facility] Determination of erythrocyte mean corpuscular volume (MCV)Ordered By: Lizet Linares on 12-22-2022 MCV (RBC) [Entitic vol] 92.0 fL 81-99 [facility] Hematocrit Auto (Bld) [Volum e fraction]Ordered By: Lizet Linares on 12-22-2022 Hematocrit (Bld) [Volume fraction] 34.5 % 37-47 [facility] Laboratory - Chemistry and C hemistry - challengeOrdered By: Lizet Linares on 12-22-2022 CO2 [Moles/Vol] 26.0 mmol/L 21.0-32.0 [facility] Urea nitrogen/Creatinine [Mass ratio] 23.8 mg/mg 10-20 [facility] - Hematology and Cell countsOrdered By: Lizet Linares on 12-22-2022 Erythrocyte distribution width (RBC) [Entitic vol] 44.8 fL 35.1-43.9 [facility] Erythrocyte distribution width (RBC) [Ratio] 13.4 % 11.6-14.6 [facility] MCH (RBC) [Entitic mass] 28.3 pg 27.0-32.0 [facility] MCHC Auto (RBC) [Mass/Vol]Or dered By: Lizet Linares on 12-22-2022 MCHC (RBC) [Mass/Vol] 30.7 g/dL 32-36 [facility] No Panel InformationOrdered By: Lizet Linares on 12-22-2022 Estimated GFR (MDRD) Amer 72 mL/min >60 [facility] Comment on above: GFR Calc Estimated GFR (MDRD) Non-Af Amer 60 mL/min >60 [facility] Comment on above: Non- GFR Calc 28.3 pg 27.0-32.0 [facility] 13.4 % 11.6-14.6 [facility] 44.8 fl 35.1-43.9 [facility] 60 mL/min >60 [facility] 72 mL/min >60 [facility] 23.8 RATIO 10-20 [facility] 26.0 mmol/L 21.0-32.0 [facility] Platelets bldOrdered By: Bart Linares on 12-22-2022 Platelets (Bld) [#/Vol] 293 10*3/uL 150-450 [facility] Serum or plasma calcium tai urement (mass/volume)Ordered By: Lizet Linares on 12-22-2022 Calcium [Mass/Vol] 8.8 mg/dL 8.5-10.1 [facility] Serum or plasma creatinine m easurement (mass/volume)Ordered By: Lizet Linares on 12-22-2022 Creatinine [Mass/Vol] 1.01 mg/dL 0.55-1.02 [facility] Comment on above: The validity of the calculated GFR & GFRAA in patients over 70 years has not been determined. Clinical correlation is essential. Serum or plasma urea nitroge n measurement (mass/volume)Ordered By: Lizet Linares on 12-22-2022 Urea nitrogen [Mass/Vol] 24 mg/dL 7-18 [facility] Thin prep Papanicolaou smear with manual screeningOrdered By: Lizet Linares on 12-22-2022 Thin prep Papanicolaou smear with manual screening 8 5-15 [facility] Basophil percentageOrdered B y: Lizet Linares on 12-14-2022 Basophil percentage 170 mg/dL 74-[address] [facility] Basophil percentage 139 mmol/L 136-[address] [facility] Basophil percentage 4.1 mmol/L 3.5-5.[address] [facility] Basophil percentage 104 mmol/L 98-[address] [facility] Chloride [Moles/Vol] 104 mmol/L 98-107 [facility] Glucose [Mass/Vol] 170 mg/dL 74-106 [facility] Comment on above: Fasting Glucose resu lt greater than or equal to 126 mg/dL suggests DIABETES MELLITUS per A.D.A. criteria. Potassium [Moles/Vol] 4.1 mmol/L 3.5-5.1 [facility] Sodium [Moles/Vol] 139 mmol/L 136-145 [facility] Laboratory - Chemistry and C hemistry - challengeOrdered By: Lizet Linares on 12-14-2022 CO2 [Moles/Vol] 27.0 mmol/L 21.0-32.0 [facility] Urea nitrogen/Creatinine [Mass ratio] 24.8 mg/mg 08-13 [facility] No Panel InformationOrdered By: Lizet Linares on 12-14-2022 Estimated GFR (MDRD) Amer 72 mL/min >60 [facility] Comment on above: GFR Calc Estimated GFR (MDRD) Non-Af Amer 60 mL/min >60 [facility] Comment on above: Non- GFR Calc 60 mL/min >60 [facility] 72 mL/min >60 [facility] 24.8 RATIO 08-13 [facility] 27.0 mmol/L 21.0-32.0 [facility] Serum or plasma calcium tai urement (mass/volume)Ordered By: Lizet Linares on 12-14-2022 Calcium [Mass/Vol] 9.0 mg/dL 8.5-10.1 [facility] Serum or plasma creatinine m easurement (mass/volume)Ordered By: Lizet Linares on 12-14-2022 Creatinine [Mass/Vol] 1.01 mg/dL 0.55-1.02 [facility] Comment on above: The validity of the calculated GFR & GFRAA in patients over 70 years has not been determined. Clinical correlation is essential. Serum or plasma urea nitroge n measurement (mass/volume)Ordered By: Lizet Linares on 12-14-2022 Urea nitrogen [Mass/Vol] 25 mg/dL -18 [facility] Thin prep Papanicolaou smear with manual screeningOrdered By: Lizet Linares on 12-14-2022 Thin prep Papanicolaou smear with manual screening 8 5-15 [facility] Basophil percentageOrdered B y: Lizet Linares on 12-08-2022 Basophil percentage 107 mg/dL 74-[address] [facility] Basophil percentage 141 mmol/L 136-[address] [facility] Basophil percentage 4.5 mmol/L 3.5-5.[address] [facility] Basophil percentage 108 mmol/L 98-[address] [facility] Basophils (Bld) [#/Vol] 6.6 10*3/uL 4.4-11.0 [facility] Chloride [Moles/Vol] 108 mmol/L 98-107 [facility] Glucose [Mass/Vol] 107 mg/dL 74-106 [facility] Comment on above: Fasting Glucose resu lt from 100 to 125 mg/dL suggests IMPAIRED HOMEOSTASIS per A.D.A. criteria. Potassium [Moles/Vol] 4.5 mmol/L 3.5-5.1 [facility] Sodium [Moles/Vol] 141 mmol/L 136-145 [facility] WBC (Bld) [#/Vol] 6.6 10*3/uL 4.4-11.0 [facility] Blood erythrocytes count (nu mber/volume)Ordered By: Lizet Linares on 12-08-2022 RBC (Bld) [#/Vol] 3.93 10*6/uL 4.2-5.[address] [facility] Blood hemoglobin measurement (mass/volume)Ordered By: Lizet Linares on 12-08-2022 Hemoglobin (Bld) [Mass/Vol] 11.3 g/dL 12.0-15.0 [facility] Blood platelet mean volumeOr dered By: Lizet Linares on 12-08-2022 Platelet mean volume (Bld) [Entitic vol] 9.7 fL 6.2-12.0 [facility] Determination of erythrocyte mean corpuscular volume (MCV)Ordered By: Lizet Linares on 12-08-2022 MCV (RBC) [Entitic vol] 90.8 fL 81-99 [facility] Hematocrit Auto (Bld) [Volum e fraction]Ordered By: Lizet Linares on 12-08-2022 Hematocrit (Bld) [Volume fraction] 35.7 % 37-47 [facility] Laboratory - Chemistry and C hemistry - challengeOrdered By: Lizet Linares on 12-08-2022 CO2 [Moles/Vol] 25.0 mmol/L 21.0-32.0 [facility] Urea nitrogen/Creatinine [Mass ratio] 26.2 mg/mg 10- [facility] - Hematology and Cell countsOrdered By: Lizet Linares on 12-08-2022 Erythrocyte distribution width (RBC) [Entitic vol] 45.8 fL 35.1-43.9 [facility] Erythrocyte distribution width (RBC) [Ratio] 13.8 % 11.6-14.6 [facility] MCH (RBC) [Entitic mass] 28.8 pg 27.0-32.0 [facility] MCHC Auto (RBC) [Mass/Vol]Or dered By: Lizet Linares on 12-08-2022 MCHC (RBC) [Mass/Vol] 31.7 g/dL 32-36 [facility] No Panel InformationOrdered By: Lizet Linares on 12-08-2022 Estimated GFR (MDRD) Amer 77 mL/min >60 [facility] Comment on above: GFR Calc Estimated GFR (MDRD) Non-Af Amer 64 mL/min >60 [facility] Comment on above: Non- GFR Calc 28.8 pg 27.0-32.0 [facility] 13.8 % 11.6-14.6 [facility] 45.8 fl 35.1-43.9 [facility] 64 mL/min >60 [facility] 77 mL/min >60 [facility] 26.2 RATIO 08-13 [facility] 25.0 mmol/L 21.0-32.0 [facility] Platelets bldOrdered By: Bart Linares on 12-08-2022 Platelets (Bld) [#/Vol] 287 10*3/uL 150-450 [facility] Serum or plasma calcium tai urement (mass/volume)Ordered By: Lizet Linares on 12-08-2022 Calcium [Mass/Vol] 9.0 mg/dL 8.5-10.1 [facility] Serum or plasma creatinine m easurement (mass/volume)Ordered By: Lizet Linares on 12-08-2022 Creatinine [Mass/Vol] 0.95 mg/dL 0.55-1.02 [facility] Comment on above: The validity of the calculated GFR & GFRAA in patients over 70 years has not been determined. Clinical correlation is essential. Serum or plasma urea nitroge n measurement (mass/volume)Ordered By: Lizet Linares on 12-08-2022 Urea nitrogen [Mass/Vol] 25 mg/dL 7-18 [facility] Thin prep Papanicolaou smear with manual screeningOrdered By: Lizet Linares on 12-08-2022 Thin prep Papanicolaou smear with manual screening 8 5-15 [facility] Basophil percentageOrdered B y: Lizet Linares on 11-24-2022 Basophil percentage 208 mg/dL 74-[address] [facility] Basophil percentage 141 mmol/L 136-[address] [facility] Basophil percentage 4.2 mmol/L 3.5-5.[address] [facility] Basophil percentage 108 mmol/L 98-[address] [facility] Basophils (Bld) [#/Vol] 6.2 10*3/uL 4.4-11.0 [facility] Chloride [Moles/Vol] 108 mmol/L 98-107 [facility] Glucose [Mass/Vol] 208 mg/dL 74-106 [facility] Comment on above: Glucose result great er than or equal to 200 mg/dLsuggests DIABETES MELLITUS per A.D.A. criteria. Potassium [Moles/Vol] 4.2 mmol/L 3.5-5.1 [facility] Sodium [Moles/Vol] 141 mmol/L 136-145 [facility] WBC (Bld) [#/Vol] 6.2 10*3/uL 4.4-11.0 [facility] Blood erythrocytes count (nu mber/volume)Ordered By: Lizet Linares on 11-24-2022 RBC (Bld) [#/Vol] 3.94 10*6/uL 4.2-5.[address] [facility] Blood hemoglobin measurement (mass/volume)Ordered By: Lizet Linares on 11-24-2022 Hemoglobin (Bld) [Mass/Vol] 11.0 g/dL 12.0-15.0 [facility] Blood platelet mean volumeOr dered By: Lizet Linares on 11-24-2022 Platelet mean volume (Bld) [Entitic vol] 10.0 fL 6.2-12.0 [facility] Determination of erythrocyte mean corpuscular volume (MCV)Ordered By: Lizet Linares on 11-24-2022 MCV (RBC) [Entitic vol] 90.9 fL 81-99 [facility] Hematocrit Auto (Bld) [Volum e fraction]Ordered By: Lizet Linares on 11-24-2022 Hematocrit (Bld) [Volume fraction] 35.8 % 37-47 [facility] - Chemistry and C hemistry - challengeOrdered By: Lizet iLnares on 11-24-2022 CO2 [Moles/Vol] 26.0 mmol/L 21.0-32.0 [facility] Urea nitrogen/Creatinine [Mass ratio] 17.6 mg/mg 10-20 [facility] - Hematology and Cell countsOrdered By: Lizet Linares on 11-24-2022 Erythrocyte distribution width (RBC) [Entitic vol] 46.9 fL 35.1-43.9 [facility] Erythrocyte distribution width (RBC) [Ratio] 14.0 % 11.6-14.6 [facility] MCH (RBC) [Entitic mass] 27.9 pg 27.0-32.0 [facility] MCHC Auto (RBC) [Mass/Vol]Or dered By: Lizet Linares on 11-24-2022 MCHC (RBC) [Mass/Vol] 30.7 g/dL 32-36 [facility] No Panel InformationOrdered By: Lizet Linares on 11-24-2022 Estimated GFR (MDRD) Amer 71 mL/min >60 [facility] Comment on above: GFR Calc Estimated GFR (MDRD) Non-Af Amer 59 mL/min >60 [facility] Comment on above: Non- GFR Calc 27.9 pg 27.0-32.0 [facility] 14.0 % 11.6-14.6 [facility] 46.9 fl 35.1-43.9 [facility] 59 mL/min >60 [facility] 71 mL/min >60 [facility] 17.6 RATIO 10-20 [facility] 26.0 mmol/L 21.0-32.0 [facility] Platelets bldOrdered By: Bart Linares on 11-24-2022 Platelets (Bld) [#/Vol] 270 10*3/uL 150-450 [facility] Serum or plasma calcium tai urement (mass/volume)Ordered By: Lizet Linares on 11-24-2022 Calcium [Mass/Vol] 8.7 mg/dL 8.5-10.1 [facility] Serum or plasma creatinine m easurement (mass/volume)Ordered By: Lizet Linares on 11-24-2022 Creatinine [Mass/Vol] 1.02 mg/dL 0.55-1.02 [facility] Comment on above: The validity of the calculated GFR & GFRAA in patients over 70 years has not been determined. Clinical correlation is essential. Serum or plasma urea nitroge n measurement (mass/volume)Ordered By: Lizet Linares on 11-24-2022 Urea nitrogen [Mass/Vol] 18 mg/dL 7-18 [facility] Thin prep Papanicolaou smear with manual screeningOrdered By: Lizet Linares on 11-24-2022 Thin prep Papanicolaou smear with manual screening 7 5-15 [facility] Basophil percentageOrdered B y: Lizet Linares on 11-10-2022 Basophil percentage 189 mg/dL 74-[address] [facility] Basophil percentage 136 mmol/L 136-[address] [facility] Basophil percentage 4.4 mmol/L 3.5-5.[address] [facility] Basophil percentage 101 mmol/L 98-[address] [facility] Basophils (Bld) [#/Vol] 7.5 10*3/uL 4.4-11.0 [facility] Chloride [Moles/Vol] 101 mmol/L 98-107 [facility] Glucose [Mass/Vol] 189 mg/dL 74-106 [facility] Comment on above: Fasting Glucose resu lt greater than or equal to 126 mg/dL suggests DIABETES MELLITUS per A.D.A. criteria. Potassium [Moles/Vol] 4.4 mmol/L 3.5-5.1 [facility] Comment on above: Slight Hemolysis, Re sult may be falsely increased. Sodium [Moles/Vol] 136 mmol/L 136-145 [facility] WBC (Bld) [#/Vol] 7.5 10*3/uL 4.4-11.0 [facility] Blood erythrocytes count (nu mber/volume)Ordered By: Lizet Linares on 11-10-2022 RBC (Bld) [#/Vol] 4.02 10*6/uL 4.2-5.[address] [facility] Blood hemoglobin measurement (mass/volume)Ordered By: Lizet Linares on 11-10-2022 Hemoglobin (Bld) [Mass/Vol] 11.6 g/dL 12.0-15.0 [facility] Blood platelet mean volumeOr dered By: Lizet Linares on 11-10-2022 Platelet mean volume (Bld) [Entitic vol] 10.0 fL 6.2-12.0 [facility] Determination of erythrocyte mean corpuscular volume (MCV)Ordered By: Lizet Linares on 11-10-2022 MCV (RBC) [Entitic vol] 88.1 fL 81-99 [facility] Hematocrit Auto (Bld) [Volum e fraction]Ordered By: Lizet Linares on 11-10-2022 Hematocrit (Bld) [Volume fraction] 35.4 % 37-47 [facility] Laboratory - Chemistry and C hemistry - challengeOrdered By: Lizet Linares on 11-10-2022 CO2 [Moles/Vol] 27.0 mmol/L 21.0-32.0 [facility] Urea nitrogen/Creatinine [Mass ratio] 22.6 mg/mg 10-20 [facility] - Hematology and Cell countsOrdered By: Lizet Linares on 11-10-2022 Erythrocyte distribution width (RBC) [Entitic vol] 44.0 fL 35.1-43.9 [facility] Erythrocyte distribution width (RBC) [Ratio] 13.6 % 11.6-14.6 [facility] MCH (RBC) [Entitic mass] 28.9 pg 27.0-32.0 [facility] MCHC Auto (RBC) [Mass/Vol]Or dered By: Lizet Linares on 11-10-2022 MCHC (RBC) [Mass/Vol] 32.8 g/dL 32-36 [facility] No Panel InformationOrdered By: Lizet Linares on 11-10-2022 Estimated GFR (MDRD) Amer 68 mL/min >60 [facility] Comment on above: GFR Calc Estimated GFR (MDRD) Non-Af Amer 56 mL/min >60 [facility] Comment on above: Non- GFR Calc 28.9 pg 27.0-32.0 [facility] 13.6 % 11.6-14.6 [facility] 44.0 fl 35.1-43.9 [facility] 56 mL/min >60 [facility] 68 mL/min >60 [facility] 22.6 RATIO 10- [facility] 27.0 mmol/L 21.0-32.0 [facility] Platelets bldOrdered By: Bart Linares on 11-10-2022 Platelets (Bld) [#/Vol] 292 10*3/uL 150-450 [facility] Serum or plasma calcium tai urement (mass/volume)Ordered By: Lizet Linares on 11-10-2022 Calcium [Mass/Vol] 8.9 mg/dL 8.5-10.1 [facility] Serum or plasma creatinine m easurement (mass/volume)Ordered By: Lizet Linares on 11-10-2022 Creatinine [Mass/Vol] 1.06 mg/dL 0.55-1.02 [facility] Comment on above: The validity of the calculated GFR & GFRAA in patients over 70 years has not been determined. Clinical correlation is essential. Serum or plasma urea nitroge n measurement (mass/volume)Ordered By: Lizet Linares on 11-10-2022 Urea nitrogen [Mass/Vol] 24 mg/dL 7-18 [facility] Thin prep Papanicolaou smear with manual screeningOrdered By: Lizet Linares on 11-10-2022 Thin prep Papanicolaou smear with manual screening 8 5-15 [facility] Whole blood hemoglobin A1c/t otal hemoglobin ratio (mass fraction)Ordered By: Lizet Linares on 11-10-2022 HbA1c (Bld) [Mass fraction] 11.3 % 3.8-5.6 [facility] Comment on above: Normal < 5.7 % Predi abetic 5.7 - 6.4 % Diabetic >or= 6.5 % Please note range changes. Absolute lymphocyte countOrd ered By: Dr. Camp on 11-05-2022 Lymphocytes Auto (Unsp spec) [#/Vol] 4.02 10*3/uL 0.83-4.51 [facility] Basophil percentageOrdered B y: Dr. Camp on 11-05-2022 Basophil percentage 441 mg/dL 74-[address] [facility] Basophil percentage 133 mmol/L 136-[address] [facility] Basophil percentage 4.7 mmol/L 3.5-5.[address] [facility] Basophil percentage 99 mmol/L 98-[address] [facility] Basophils (Bld) [#/Vol] 9.1 10*3/uL 4.4-11.0 [facility] Basophils (Bld) [#/Vol] 4.4 10*3/uL 2.0-7.7 [facility] Basophils/100 WBC (Bld) 0.8 % 0-1 [facility] Basophils/100 WBC (Bld) 48.7 % 47-70 [facility] Basophils/100 WBC (Bld) 1.7 % 0-5 [facility] Chloride [Moles/Vol] 99 mmol/L 98-107 [facility] Eosinophils/100 WBC (Bld) 1.7 % 0-5 [facility] Glucose [Mass/Vol] 441 mg/dL 74-106 [facility] Comment on above: Glucose result great er than or equal to 200 mg/dLsuggests DIABETES MELLITUS per A.D.A. criteria. Neutrophils (Bld) [#/Vol] 4.4 10*3/uL 2.0-7.7 [facility] Neutrophils/100 WBC (Bld) 48.7 % 47-70 [facility] Potassium [Moles/Vol] 4.7 mmol/L 3.5-5.1 [facility] Sodium [Moles/Vol] 133 mmol/L 136-145 [facility] WBC (Bld) [#/Vol] 9.1 10*3/uL 4.4-11.0 [facility] Blood erythrocytes count (nu mber/volume)Ordered By: Dr. Camp on 11-05-2022 RBC (Bld) [#/Vol] 4.28 10*6/uL 4.2-5.[address] [facility] Blood hemoglobin measurement (mass/volume)Ordered By: Dr. Camp on 11-05-2022 Hemoglobin (Bld) [Mass/Vol] 12.1 g/dL 12.0-15.0 [facility] Blood lymphocytes/100 leukoc ytesOrdered By: Dr. Camp on 11-05-2022 Lymphocytes/100 WBC (Bld) 44.2 % 19-41 [facility] Blood monocytes/100 leukocyt esOrdered By: Dr. Camp on 11-05-2022 Monocytes/100 WBC (Bld) 4.2 % 0-10 [facility] Blood platelet mean volumeOr dered By: Dr. Camp on 11-05-2022 Platelet mean volume (Bld) [Entitic vol] 9.7 fL 6.2-12.0 [facility] Determination of erythrocyte mean corpuscular volume (MCV)Ordered By: Dr. Camp on 11-05-2022 MCV (RBC) [Entitic vol] 86.0 fL 81-99 [facility] Hematocrit Auto (Bld) [Volum e fraction]Ordered By: Dr. Camp on 11-05-2022 Hematocrit (Bld) [Volume fraction] 36.8 % 37-47 [facility] Laboratory - Chemistry and C hemistry - challengeOrdered By: Dr. Camp on 01-12-2023 CO2 [Moles/Vol] 27.0 mmol/L 21.0-32.0 [facility] Urea nitrogen/Creatinine [Mass ratio] 18.8 mg/mg 10-20 [facility] - Hematology and Cell countsOrdered By: Dr. Camp on 11-05-2022 Erythrocyte distribution width (RBC) [Entitic vol] 42.0 fL 35.1-43.9 [facility] Erythrocyte distribution width (RBC) [Ratio] 13.3 % 11.6-14.6 [facility] Immature granulocytes/100 WBC (Bld) 0.400 % 0.0-0.9 [facility] Comment on above: IG% - Immature Granu locytes (promyelocytes, myelocytes and metamyelocytes) > 1% indicates that a LEFT SHIFT is Present. MCH (RBC) [Entitic mass] 28.3 pg 27.0-32.0 [facility] Nucleated RBC/100 WBC (Bld) [Ratio] 0.2 % 0-5 [facility] MCHC Auto (RBC) [Mass/Vol]Or dered By: Dr. Camp on 11-05-2022 MCHC (RBC) [Mass/Vol] 32.9 g/dL 32-36 [facility] No Panel InformationOrdered By: Dr. Camp on 11-05-2022 Troponin I High Sensitivity 8 pg/mL 3.0-54.0 [facility] Comment on above: Please Note: New Carolann t Units and Gender Specific Reference Ranges. For more information see Policy Stat Procedure [place] High Sensitivity Troponin (TNIH) and attachments. 8 pg/mL 3.0-54.0 [facility] Estimated Creatinine Clearance Calc 33.99 ml/min [facility] Estimated GFR (MDRD) Amer 55 mL/min >60 [facility] Comment on above: GFR Calc Estimated GFR (MDRD) Non-Af Amer 45 mL/min >60 [facility] Comment on above: Non- GFR Calc 28.3 pg 27.0-32.0 [facility] 13.3 % 11.6-14.6 [facility] 42.0 fl 35.1-43.9 [facility] 0.400 % 0.0-0.9 [facility] 0.2 % 0-5 [facility] 45 mL/min >60 [facility] 55 mL/min >60 [facility] 33.99 ml/min [facility] 18.8 RATIO 10-20 [facility] 27.0 mmol/L 21.0-32.0 [facility] Platelets bldOrdered By: Dr. Camp on 11-05-2022 Platelets (Bld) [#/Vol] 290 10*3/uL 150-450 [facility] Serum or plasma calcium tai urement (mass/volume)Ordered By: Dr. Camp on 11-05-2022 Calcium [Mass/Vol] 9.5 mg/dL 8.5-10.1 [facility] Serum or plasma creatinine m easurement (mass/volume)Ordered By: Dr. Camp on 11-05-2022 Creatinine [Mass/Vol] 1.28 mg/dL 0.55-1.02 [facility] Comment on above: The validity of the calculated GFR & GFRAA in patients over 70 years has not been determined. Clinical correlation is essential. Serum or plasma urea nitroge n measurement (mass/volume)Ordered By: Dr. Camp on 11-05-2022 Urea nitrogen [Mass/Vol] 24 mg/dL 7-18 [facility] Thin prep Papanicolaou smear with manual screeningOrdered By: Dr. Camp on 11-05-2022 Thin prep Papanicolaou smear with manual screening 7 5-15 [facility] Basophil percentageOrdered B y: Lizet Linares on 10-30-2022 Basophil percentage 359 mg/dL 74-[address] [facility] Basophil percentage 134 mmol/L 136-[address] [facility] Basophil percentage 4.2 mmol/L 3.5-5.[address] [facility] Basophil percentage 100 mmol/L 98-[address] [facility] Chloride [Moles/Vol] 100 mmol/L 98-107 [facility] Glucose [Mass/Vol] 359 mg/dL 74-106 [facility] Comment on above: Glucose result great er than or equal to 200 mg/dLsuggests DIABETES MELLITUS per A.D.A. criteria. Potassium [Moles/Vol] 4.2 mmol/L 3.5-5.1 [facility] Sodium [Moles/Vol] 134 mmol/L 136-145 [facility] Laboratory - Chemistry and C hemistry - challengeOrdered By: Lizet Linares on 10-30-2022 CO2 [Moles/Vol] 28.0 mmol/L 21.0-32.0 [facility] Urea nitrogen/Creatinine [Mass ratio] 23.1 mg/mg 10-20 [facility] No Panel InformationOrdered By: Lizet Linares on 10-30-2022 Estimated GFR (MDRD) Amer 54 mL/min >60 [facility] Comment on above: GFR Calc Estimated GFR (MDRD) Non-Af Amer 45 mL/min >60 [facility] Comment on above: Non- GFR Calc 45 mL/min >60 [facility] 54 mL/min >60 [facility] 23.1 RATIO 10-20 [facility] 28.0 mmol/L 21.0-32.0 [facility] Serum or plasma calcium tai urement (mass/volume)Ordered By: Lizet Linares on 10-30-2022 Calcium [Mass/Vol] 8.9 mg/dL 8.5-10.1 [facility] Serum or plasma creatinine m easurement (mass/volume)Ordered By: Lizet Linares on 10-30-2022 Creatinine [Mass/Vol] 1.30 mg/dL 0.55-1.02 [facility] Comment on above: The validity of the calculated GFR & GFRAA in patients over 70 years has not been determined. Clinical correlation is essential. Serum or plasma urea nitroge n measurement (mass/volume)Ordered By: Lizet Linares on 10-30-2022 Urea nitrogen [Mass/Vol] 30 mg/dL 7-18 [facility] Thin prep Papanicolaou smear with manual screeningOrdered By: Lizet Linares on 10-30-2022 Thin prep Papanicolaou smear with manual screening 6 5-15 [facility] Basophil percentageOrdered B y: Lizet Linares on 10-27-2022 Basophil percentage 295 mg/dL 74-[address] [facility] Basophil percentage 134 mmol/L 136-[address] [facility] Basophil percentage 4.3 mmol/L 3.5-5.[address] [facility] Basophil percentage 100 mmol/L 98-[address] [facility] Basophils (Bld) [#/Vol] 7.7 10*3/uL 4.4-11.0 [facility] Chloride [Moles/Vol] 100 mmol/L 98-107 [facility] Glucose [Mass/Vol] 295 mg/dL 74-106 [facility] Comment on above: Glucose result great er than or equal to 200 mg/dLsuggests DIABETES MELLITUS per A.D.A. criteria. Potassium [Moles/Vol] 4.3 mmol/L 3.5-5.1 [facility] Sodium [Moles/Vol] 134 mmol/L 136-145 [facility] WBC (Bld) [#/Vol] 7.7 10*3/uL 4.4-11.0 [facility] Blood erythrocytes count (nu mber/volume)Ordered By: Lizet Linares on 10-27-2022 RBC (Bld) [#/Vol] 4.02 10*6/uL 4.2-5.[address] [facility] Blood hemoglobin measurement (mass/volume)Ordered By: Lizet Linares on 10-27-2022 Hemoglobin (Bld) [Mass/Vol] 11.4 g/dL 12.0-15.0 [facility] Blood platelet mean volumeOr dered By: Lizet Linares on 10-27-2022 Platelet mean volume (Bld) [Entitic vol] 10.4 fL 6.2-12.0 [facility] Determination of erythrocyte mean corpuscular volume (MCV)Ordered By: Lizet Linares on 10-27-2022 MCV (RBC) [Entitic vol] 88.1 fL 81-99 [facility] Hematocrit Auto (Bld) [Volum e fraction]Ordered By: Lizet Linares on 10-27-2022 Hematocrit (Bld) [Volume fraction] 35.4 % 37-47 [facility] Laboratory - Chemistry and C hemistry - challengeOrdered By: Lizet Linares on 10-27-2022 CO2 [Moles/Vol] 29.0 mmol/L 21.0-32.0 [facility] Urea nitrogen/Creatinine [Mass ratio] 24.8 mg/mg 10-20 [facility] - Hematology and Cell countsOrdered By: Lizet Linares on 10-27-2022 Erythrocyte distribution width (RBC) [Entitic vol] 44.1 fL 35.1-43.9 [facility] Erythrocyte distribution width (RBC) [Ratio] 13.7 % 11.6-14.6 [facility] MCH (RBC) [Entitic mass] 28.4 pg 27.0-32.0 [facility] MCHC Auto (RBC) [Mass/Vol]Or dered By: Lizet Linares on 10-27-2022 MCHC (RBC) [Mass/Vol] 32.2 g/dL 32-36 [facility] No Panel InformationOrdered By: Lizet Linares on 10-27-2022 Estimated GFR (MDRD) Amer 61 mL/min >60 [facility] Comment on above: GFR Calc Estimated GFR (MDRD) Non-Af Amer 50 mL/min >60 [facility] Comment on above: Non- GFR Calc 28.4 pg 27.0-32.0 [facility] 13.7 % 11.6-14.6 [facility] 44.1 fl 35.1-43.9 [facility] 50 mL/min >60 [facility] 61 mL/min >60 [facility] 24.8 RATIO 10-20 [facility] 29.0 mmol/L 21.0-32.0 [facility] Platelets bldOrdered By: Bart Linares on 10-27-2022 Platelets (Bld) [#/Vol] 299 10*3/uL 150-450 [facility] Serum or plasma calcium tai urement (mass/volume)Ordered By: Lizet Linares on 10-27-2022 Calcium [Mass/Vol] 9.0 mg/dL 8.5-10.1 [facility] Serum or plasma creatinine m easurement (mass/volume)Ordered By: Lizet Linares on 10-27-2022 Creatinine [Mass/Vol] 1.17 mg/dL 0.55-1.02 [facility] Comment on above: The validity of the calculated GFR & GFRAA in patients over 70 years has not been determined. Clinical correlation is essential. Serum or plasma urea nitroge n measurement (mass/volume)Ordered By: Lizet Linares on 10-27-2022 Urea nitrogen [Mass/Vol] 29 mg/dL 7-18 [facility] Thin prep Papanicolaou smear with manual screeningOrdered By: Lizet Linares on 10-27-2022 Thin prep Papanicolaou smear with manual screening 5 5-15 [facility] Basophil percentageOrdered B y: Lizet Linares on 10-13-2022 Basophil percentage 332 mg/dL 74-[address] [facility] Basophil percentage 134 mmol/L 136-[address] [facility] Basophil percentage 4.4 mmol/L 3.5-5.[address] [facility] Basophil percentage 96 mmol/L 98-[address] [facility] Basophils (Bld) [#/Vol] 6.8 10*3/uL 4.4-11.0 [facility] Chloride [Moles/Vol] 96 mmol/L 98-107 [facility] Glucose [Mass/Vol] 332 mg/dL 74-106 [facility] Comment on above: Glucose result great er than or equal to 200 mg/dLsuggests DIABETES MELLITUS per A.D.A. criteria. Potassium [Moles/Vol] 4.4 mmol/L 3.5-5.1 [facility] Sodium [Moles/Vol] 134 mmol/L 136-145 [facility] WBC (Bld) [#/Vol] 6.8 10*3/uL 4.4-11.0 [facility] Blood erythrocytes count (nu mber/volume)Ordered By: Lizet Linares on 10-13-2022 RBC (Bld) [#/Vol] 4.15 10*6/uL 4.2-5.[address] [facility] Blood hemoglobin measurement (mass/volume)Ordered By: Lizet Linares on 10-13-2022 Hemoglobin (Bld) [Mass/Vol] 11.8 g/dL 12.0-15.0 [facility] Blood platelet mean volumeOr dered By: Lizet Linares on 10-13-2022 Platelet mean volume (Bld) [Entitic vol] 10.0 fL 6.2-12.0 [facility] Determination of erythrocyte mean corpuscular volume (MCV)Ordered By: Lizet Linares on 10-13-2022 MCV (RBC) [Entitic vol] 87.5 fL 81-99 [facility] Hematocrit Auto (Bld) [Volum e fraction]Ordered By: Lizet Linares on 10-13-2022 Hematocrit (Bld) [Volume fraction] 36.3 % 37-47 [facility] - Chemistry and C hemistry - challengeOrdered By: Lizet Linares on 10-13-2022 CO2 [Moles/Vol] 29.0 mmol/L 21.0-32.0 [facility] Urea nitrogen/Creatinine [Mass ratio] 15.2 mg/mg 08-13 [facility] - Hematology and Cell countsOrdered By: Lizet Linares on 10-13-2022 Erythrocyte distribution width (RBC) [Entitic vol] 43.6 fL 35.1-43.9 [facility] Erythrocyte distribution width (RBC) [Ratio] 13.5 % 11.6-14.6 [facility] MCH (RBC) [Entitic mass] 28.4 pg 27.0-32.0 [facility] MCHC Auto (RBC) [Mass/Vol]Or dered By: Lizet Linares on 10-13-2022 MCHC (RBC) [Mass/Vol] 32.5 g/dL 32-36 [facility] No Panel InformationOrdered By: Lizet Linares on 10-13-2022 Estimated GFR (MDRD) Amer 50 mL/min >60 [facility] Comment on above: GFR Calc Estimated GFR (MDRD) Non-Af Amer 42 mL/min >60 [facility] Comment on above: Non- GFR Calc 28.4 pg 27.0-32.0 [facility] 13.5 % 11.6-14.6 [facility] 43.6 fl 35.1-43.9 [facility] 42 mL/min >60 [facility] 50 mL/min >60 [facility] 15.2 RATIO 08-13 [facility] 29.0 mmol/L 21.0-32.0 [facility] Platelets bldOrdered By: Bart Linares on 10-13-2022 Platelets (Bld) [#/Vol] 274 10*3/uL 150-450 [facility] Serum or plasma calcium tai urement (mass/volume)Ordered By: Lizet Linares on 10-13-2022 Calcium [Mass/Vol] 9.0 mg/dL 8.5-10.1 [facility] Serum or plasma creatinine m easurement (mass/volume)Ordered By: Lizet Linares on 10-13-2022 Creatinine [Mass/Vol] 1.38 mg/dL 0.55-1.02 [facility] Comment on above: The validity of the calculated GFR & GFRAA in patients over 70 years has not been determined. Clinical correlation is essential. Serum or plasma urea nitroge n measurement (mass/volume)Ordered By: Hollyjanellnatasha Linares on 10-13-2022 Urea nitrogen [Mass/Vol] 21 mg/dL 05-11 [facility] Thin prep Papanicolaou smear with manual screeningOrdered By: Lizet Linares on 10-13-2022 Thin prep Papanicolaou smear with manual screening 9 - [facility] Culture, urineOrdered By: Rae Hamilton on 10-11-2022 Bacteria identified Cx Nom (U) Culture exhibits no growth. [facility] Absolute lymphocyte countOrd ered By: Tip Hamilton on 10-09-2022 Lymphocytes Auto (Unsp spec) [#/Vol] 4.14 10*3/uL 0.83-4.51 [facility] Basophil percentageOrdered B y: Tip Hamilton on 10-09-2022 Basophil percentage 25-50 SEEN /hpf 0-5 [facility] Basophil percentage 272 mg/dL 74-[address] [facility] Basophil percentage 6.9 g/dL 6.4-8.[address] [facility] Basophil percentage 0.30 mg/dL 0.20-1.[address] [facility] Basophil percentage 134 mmol/L 136-[address] [facility] Basophil percentage 4.8 mmol/L 3.5-5.[address] [facility] Basophil percentage 100 mmol/L 98-[address] [facility] Basophils (Bld) [#/Vol] 9.9 10*3/uL 4.4-11.0 [facility] Basophils (Bld) [#/Vol] 5.0 10*3/uL 2.0-7.7 [facility] Basophils/100 WBC (Bld) 0.7 % 0-1 [facility] Basophils/100 WBC (Bld) 50.3 % 47-70 [facility] Basophils/100 WBC (Bld) 1.3 % 0-5 [facility] Bilirubin [Mass/Vol] 0.30 mg/dL 0.20-1.00 [facility] Comment on above: For patients on eltr ombopag therapy, use of Dimension [place] TBIL is not recommended. Chloride [Moles/Vol] 100 mmol/L 98-107 [facility] Eosinophils/100 WBC (Bld) 1.3 % 0-5 [facility] Glucose [Mass/Vol] 272 mg/dL 74-106 [facility] Comment on above: Glucose result great er than or equal to 200 mg/dLsuggests DIABETES MELLITUS per A.D.A. criteria. Neutrophils (Bld) [#/Vol] 5.0 10*3/uL 2.0-7.7 [facility] Neutrophils/100 WBC (Bld) 50.3 % 47-70 [facility] Potassium [Moles/Vol] 4.8 mmol/L 3.5-5.1 [facility] Protein [Mass/Vol] 6.9 g/dL 6.4-8.2 [facility] Sodium [Moles/Vol] 134 mmol/L 136-145 [facility] WBC (Bld) [#/Vol] 9.9 10*3/uL 4.4-11.0 [facility] Bilirubin Test strip Ql (U)O rdered By: Tip Hamilton on 10-09-2022 Bilirubin Ql (U) Negative Negative [facility] Blood erythrocytes count (nu mber/volume)Ordered By: Tip Hamilton on 10-09-2022 RBC (Bld) [#/Vol] 4.11 10*6/uL 4.2-5.[address] [facility] Blood hemoglobin measurement (mass/volume)Ordered By: Tip Hamilton on 10-09-2022 Hemoglobin (Bld) [Mass/Vol] 11.5 g/dL 12.0-15.0 [facility] Blood lymphocytes/100 leukoc ytesOrdered By: Tip Hamilton on 10-09-2022 Lymphocytes/100 WBC (Bld) 41.9 % 19-41 [facility] Blood monocytes/100 leukocyt esOrdered By: Tip Hamilton on 10-09-2022 Monocytes/100 WBC (Bld) 5.5 % 0-10 [facility] Blood platelet mean volumeOr dered By: Tip Hamilton on 10-09-2022 Platelet mean volume (Bld) [Entitic vol] 9.8 fL 6.2-12.0 [facility] Determination of erythrocyte mean corpuscular volume (MCV)Ordered By: Tip Hamilton on 10-09-2022 MCV (RBC) [Entitic vol] 86.9 fL 81-99 [facility] Direct bilirubinOrdered By: Tip Hamilton on 10-09-2022 Bilirubin.direct [Mass/Vol] 0.11 mg/dL 0.00-0.30 [facility] Hematocrit Auto (Bld) [Volum e fraction]Ordered By: Tip Hamilton on 10-09-2022 Hematocrit (Bld) [Volume fraction] 35.7 % 37-47 [facility] Ketones Test strip Ql (U)Ord ered By: Tip Hamilton on 10-09-2022 Ketones Ql (U) Negative Negative [facility] Laboratory - Chemistry and C hemistry - challengeOrdered By: Tip Hamilton on 10-09-2022 ALP [Catalytic activity/Vol] 69 U/L 45-117 [facility] ALT [Catalytic activity/Vol] 25 U/L 13-56 [facility] CO2 [Moles/Vol] 29.0 mmol/L 21.0-32.0 [facility] Globulin (S) [Mass/Vol] 3.8 g/dL 2.2-4.2 [facility] Lipase [Catalytic activity/Vol] 89 U/L 73-393 [facility] Urea nitrogen/Creatinine [Mass ratio] 21.0 mg/mg 10-20 [facility] - Hematology and Cell countsOrdered By: Tip Hamilton on 10-09-2022 Erythrocyte distribution width (RBC) [Entitic vol] 44.0 fL 35.1-43.9 [facility] Erythrocyte distribution width (RBC) [Ratio] 13.9 % 11.6-14.6 [facility] Immature granulocytes/100 WBC (Bld) 0.300 % 0.0-0.9 [facility] Comment on above: IG% - Immature Granu locytes (promyelocytes, myelocytes and metamyelocytes) > 1% indicates that a LEFT SHIFT is Present. MCH (RBC) [Entitic mass] 28.0 pg 27.0-32.0 [facility] Nucleated RBC/100 WBC (Bld) [Ratio] 0 % 0-5 [facility] MCHC Auto (RBC) [Mass/Vol]Or dered By: Tip Hamilton on 10-09-2022 MCHC (RBC) [Mass/Vol] 32.2 g/dL 32-36 [facility] Mucus LM Ql (Urine sed)Order ed By: Tip Hamilton on 10-09-2022 Mucus Ql (Urine sed) 0 SEEN /hpf [facility] Nitrite Test strip Ql (U)Ord ered By: Tip Hamilton on 10-09-2022 Nitrite Ql (U) Negative Negative [facility] No Panel InformationOrdered By: Tip Hamilton on 10-09-2022 Estimated Creatinine Clearance Calc 35.09 ml/min [facility] Estimated GFR (MDRD) Amer 57 mL/min >60 [facility] Comment on above: GFR Calc Estimated GFR (MDRD) Non-Af Amer 47 mL/min >60 [facility] Comment on above: Non- GFR Calc 28.0 pg 27.0-32.0 [facility] 13.9 % 11.6-14.6 [facility] 44.0 fl 35.1-43.9 [facility] 0.300 % 0.0-0.9 [facility] 0 % 0-5 [facility] 47 mL/min >60 [facility] 57 mL/min >60 [facility] 35.09 ml/min [facility] 21.0 RATIO 10-20 [facility] 3.8 g/dL 2.2-4.2 [facility] 89 U/L 73-393 [facility] 69 U/L 45-117 [facility] 25 U/L 13-56 [facility] 29.0 mmol/L 21.0-32.0 [facility] Platelets bldOrdered By: Kali Hamilton on 10-09-2022 Platelets (Bld) [#/Vol] 286 10*3/uL 150-450 [facility] Protein Test strip Ql (U)Ord ered By: Tip Hamilton on 10-09-2022 Protein Ql (U) 15 mg/dl Negative [facility] Serum or plasma albumin tai urement (mass/volume)Ordered By: Tip Hamilton on 10-09-2022 Albumin [Mass/Vol] 3.1 g/dL 3.2-5.0 [facility] Serum or plasma calcium tai urement (mass/volume)Ordered By: iTp Hamilton on 10-09-2022 Calcium [Mass/Vol] 8.8 mg/dL 8.5-10.1 [facility] Serum or plasma creatinine m easurement (mass/volume)Ordered By: Tip Hamilton on 10-09-2022 Creatinine [Mass/Vol] 1.24 mg/dL 0.55-1.02 [facility] Comment on above: The validity of the calculated GFR & GFRAA in patients over 70 years has not been determined. Clinical correlation is essential. Serum or plasma urea nitroge n measurement (mass/volume)Ordered By: Tip Hamilton on 10-09-2022 Urea nitrogen [Mass/Vol] 26 mg/dL 7-18 [facility] Squamous epithelial cells de tection in urine sediment by light microscopyOrdered By: Tip Hamilton on 10-09-2022 Epithelial cells.squamous LM Ql (Urine sed) 0-5 SEEN /hpf 5-10 [facility] Thin prep Papanicolaou smear with manual screeningOrdered By: Tip Hamilton on 10-09-2022 Thin prep Papanicolaou smear with manual screening 17 U/L 15-37 [facility] Thin prep Papanicolaou smear with manual screening 5 5-15 [facility] Urine blood detectionOrdered By: Tip Hamilton on 10-09-2022 RBC Ql (U) 10 /ul Negative [facility] RBC Ql (U) 0 SEEN /hpf 0-5 [facility] Urine clarityOrdered By: Kali Hamilton on 10-09-2022 Clarity (U) Sl. Cloudy Clear [facility] Urine color determinationOrd ered By: Tip Hamilton on 10-09-2022 Color (U) Yellow Yellow [facility] Urine glucose detectionOrder ed By: Tip Hamilton on 10-09-2022 Glucose Ql (U) 100 mg/dl Normal [facility] Urine leukocyte esterase det ection by dipstickOrdered By: Tip Hamilton on 10-09-2022 Leukocyte esterase Test strip Ql (U) 500 /ul Negative [facility] Urine pHOrdered By: Tip gonzalez on 10-09-2022 pH (U) 6.5 [pH] 5.0 - 8.0 [facility] Urine sediment bacteria coun t by microscopy (number/high power field)Ordered By: Tip Hamilton on 10-09-2022 Bacteria LM.HPF (Urine sed) [#/Area] 4 /[HPF] None Seen [facility] Urine specific gravity measu rementOrdered By: Tip Hamilton on 10-09-2022 Specific gravity (U) [Rel density] 1.010 1.002-1.03 0 [facility] Urobilinogen Auto test strip Ql (U)Ordered By: Tip Hamilton on 10-09-2022 Urobilinogen Ql (U) Normal mg/dl Normal [facility] Basophil percentageOrdered B y: Ganesh Garcia on 09-29-2022 Basophil percentage 426 mg/dL 74-[address] [facility] Basophil percentage 132 mmol/L 136-[address] [facility] Basophil percentage 4.1 mmol/L 3.5-5.[address] [facility] Basophil percentage 98 mmol/L 98-[address] [facility] Basophils (Bld) [#/Vol] 6.8 10*3/uL 4.4-11.0 [facility] Chloride [Moles/Vol] 98 mmol/L 98-107 [facility] Glucose [Mass/Vol] 426 mg/dL 74-106 [facility] Comment on above: Glucose result great er than or equal to 200 mg/dLsuggests DIABETES MELLITUS per A.D.A. criteria. Potassium [Moles/Vol] 4.1 mmol/L 3.5-5.1 [facility] Sodium [Moles/Vol] 132 mmol/L 136-145 [facility] WBC (Bld) [#/Vol] 6.8 10*3/uL 4.4-11.0 [facility] Blood erythrocytes count (nu mber/volume)Ordered By: Ganesh Garcia on 09-29-2022 RBC (Bld) [#/Vol] 4.11 10*6/uL 4.2-5.[address] [facility] Blood hemoglobin measurement (mass/volume)Ordered By: Ganesh Garcia on 09-29-2022 Hemoglobin (Bld) [Mass/Vol] 11.5 g/dL 12.0-15.0 [facility] Blood platelet mean volumeOr dered By: Ganesh Garcia on 09-29-2022 Platelet mean volume (Bld) [Entitic vol] 10.2 fL 6.2-12.0 [facility] Determination of erythrocyte mean corpuscular volume (MCV)Ordered By: Ganesh Garcia on 09-29-2022 MCV (RBC) [Entitic vol] 85.9 fL 81-99 [facility] Hematocrit Auto (Bld) [Volum e fraction]Ordered By: Ganesh Garcia on 09-29-2022 Hematocrit (Bld) [Volume fraction] 35.3 % 37-47 [facility] - Chemistry and C hemistry - challengeOrdered By: Ganesh Garcia on 09-29-2022 CO2 [Moles/Vol] 27.0 mmol/L 21.0-32.0 [facility] Urea nitrogen/Creatinine [Mass ratio] 21.9 mg/mg 10-20 [facility] - Hematology and Cell countsOrdered By: Ganesh Garcia on 09-29-2022 Erythrocyte distribution width (RBC) [Entitic vol] 42.8 fL 35.1-43.9 [facility] Erythrocyte distribution width (RBC) [Ratio] 13.8 % 11.6-14.6 [facility] MCH (RBC) [Entitic mass] 28.0 pg 27.0-32.0 [facility] MCHC Auto (RBC) [Mass/Vol]Or dered By: Ganesh Garcia on 09-29-2022 MCHC (RBC) [Mass/Vol] 32.6 g/dL 32-36 [facility] No Panel InformationOrdered By: Ganesh Garcia on 09-29-2022 Estimated GFR (MDRD) Amer 63 mL/min >60 [facility] Comment on above: GFR Calc Estimated GFR (MDRD) Non-Af Amer 52 mL/min >60 [facility] Comment on above: Non- GFR Calc 28.0 pg 27.0-32.0 [facility] 13.8 % 11.6-14.6 [facility] 42.8 fl 35.1-43.9 [facility] 52 mL/min >60 [facility] 63 mL/min >60 [facility] 21.9 RATIO 10-20 [facility] 27.0 mmol/L 21.0-32.0 [facility] Platelets bldOrdered By: Robert Garcia on 09-29-2022 Platelets (Bld) [#/Vol] 289 10*3/uL 150-450 [facility] Serum or plasma calcium tai urement (mass/volume)Ordered By: Ganesh Garcia on 09-29-2022 Calcium [Mass/Vol] 9.0 mg/dL 8.5-10.1 [facility] Serum or plasma creatinine m easurement (mass/volume)Ordered By: Ganesh Garcia on 09-29-2022 Creatinine [Mass/Vol] 1.14 mg/dL 0.55-1.02 [facility] Comment on above: The validity of the calculated GFR & GFRAA in patients over 70 years has not been determined. Clinical correlation is essential. Serum or plasma urea nitroge n measurement (mass/volume)Ordered By: Ganesh Garcia on 09-29-2022 Urea nitrogen [Mass/Vol] 25 mg/dL 7-18 [facility] Thin prep Papanicolaou smear with manual screeningOrdered By: Ganesh Garcia on 09-29-2022 Thin prep Papanicolaou smear with manual screening 7 5-15 [facility] Basophil percentageOrdered B y: Ganesh Garcia on 09-15-2022 Basophil percentage 258 mg/dL 74-[address] [facility] Basophil percentage 134 mmol/L 136-[address] [facility] Basophil percentage 4.1 mmol/L 3.5-5.[address] [facility] Basophil percentage 99 mmol/L 98-[address] [facility] Basophils (Bld) [#/Vol] 7.0 10*3/uL 4.4-11.0 [facility] Chloride [Moles/Vol] 99 mmol/L 98-107 [facility] Glucose [Mass/Vol] 258 mg/dL 74-106 [facility] Comment on above: Glucose result great er than or equal to 200 mg/dLsuggests DIABETES MELLITUS per A.D.A. criteria. Potassium [Moles/Vol] 4.1 mmol/L 3.5-5.1 [facility] Sodium [Moles/Vol] 134 mmol/L 136-145 [facility] WBC (Bld) [#/Vol] 7.0 10*3/uL 4.4-11.0 [facility] Blood erythrocytes count (nu mber/volume)Ordered By: Ganesh Garcia on 09-15-2022 RBC (Bld) [#/Vol] 3.71 10*6/uL 4.2-5.[address] [facility] Blood hemoglobin measurement (mass/volume)Ordered By: Ganesh Garcia on 09-15-2022 Hemoglobin (Bld) [Mass/Vol] 10.6 g/dL 12.0-15.0 [facility] Blood platelet mean volumeOr dered By: Ganesh Garcia on 09-15-2022 Platelet mean volume (Bld) [Entitic vol] 10.1 fL 6.2-12.0 [facility] Determination of erythrocyte mean corpuscular volume (MCV)Ordered By: Ganesh Garcia on 09-15-2022 MCV (RBC) [Entitic vol] 84.9 fL 81-99 [facility] Hematocrit Auto (Bld) [Volum e fraction]Ordered By: Ganesh Garcia on 09-15-2022 Hematocrit (Bld) [Volume fraction] 31.5 % 37-47 [facility] - Chemistry and C hemistry - challengeOrdered By: Ganesh Garcia on 09-15-2022 CO2 [Moles/Vol] 26.0 mmol/L 21.0-32.0 [facility] Urea nitrogen/Creatinine [Mass ratio] 22.8 mg/mg 10-20 [facility] - Hematology and Cell countsOrdered By: Ganesh Garcia on 09-15-2022 Erythrocyte distribution width (RBC) [Entitic vol] 43.3 fL 35.1-43.9 [facility] Erythrocyte distribution width (RBC) [Ratio] 14.0 % 11.6-14.6 [facility] MCH (RBC) [Entitic mass] 28.6 pg 27.0-32.0 [facility] MCHC Auto (RBC) [Mass/Vol]Or dered By: Ganesh Garcia on 09-15-2022 MCHC (RBC) [Mass/Vol] 33.7 g/dL 32-36 [facility] No Panel InformationOrdered By: Ganesh Garcia on 09-15-2022 Estimated GFR (MDRD) Amer 72 mL/min >60 [facility] Comment on above: GFR Calc Estimated GFR (MDRD) Non-Af Amer 60 mL/min >60 [facility] Comment on above: Non- GFR Calc 28.6 pg 27.0-32.0 [facility] 14.0 % 11.6-14.6 [facility] 43.3 fl 35.1-43.9 [facility] 60 mL/min >60 [facility] 72 mL/min >60 [facility] 22.8 RATIO 10-20 [facility] 26.0 mmol/L 21.0-32.0 [facility] Platelets bldOrdered By: Robert Garcia on 09-15-2022 Platelets (Bld) [#/Vol] 258 10*3/uL 150-450 [facility] Serum or plasma calcium tai urement (mass/volume)Ordered By: Ganesh Garcia on 09-15-2022 Calcium [Mass/Vol] 8.6 mg/dL 8.5-10.1 [facility] Serum or plasma creatinine m easurement (mass/volume)Ordered By: Ganesh Garcia on 09-15-2022 Creatinine [Mass/Vol] 1.01 mg/dL 0.55-1.02 [facility] Comment on above: The validity of the calculated GFR & GFRAA in patients over 70 years has not been determined. Clinical correlation is essential. Serum or plasma urea nitroge n measurement (mass/volume)Ordered By: Ganesh Garcia on 09-15-2022 Urea nitrogen [Mass/Vol] 23 mg/dL - [facility] Thin prep Papanicolaou smear with manual screeningOrdered By: Ganesh Garcia on 09-15-2022 Thin prep Papanicolaou smear with manual screening 9 5-15 [facility] Basophil percentageOrdered B y: Ganesh Garcia on 09-11-2022 Basophil percentage 246 mg/dL 74-[address] [facility] Basophil percentage 136 mmol/L 136-[address] [facility] Basophil percentage 4.3 mmol/L 3.5-5.[address] [facility] Basophil percentage 100 mmol/L 98-[address] [facility] Basophils (Bld) [#/Vol] 7.5 10*3/uL 4.4-11.0 [facility] Chloride [Moles/Vol] 100 mmol/L 98-107 [facility] Glucose [Mass/Vol] 246 mg/dL 74-106 [facility] Comment on above: Glucose result great er than or equal to 200 mg/dLsuggests DIABETES MELLITUS per A.D.A. criteria. Potassium [Moles/Vol] 4.3 mmol/L 3.5-5.1 [facility] Sodium [Moles/Vol] 136 mmol/L 136-145 [facility] WBC (Bld) [#/Vol] 7.5 10*3/uL 4.4-11.0 [facility] Blood erythrocytes count (nu mber/volume)Ordered By: Ganesh Garcia on 09-11-2022 RBC (Bld) [#/Vol] 3.79 10*6/uL 4.2-5.[address] [facility] Blood hemoglobin measurement (mass/volume)Ordered By: Ganesh Garcia on 09-11-2022 Hemoglobin (Bld) [Mass/Vol] 10.5 g/dL 12.0-15.0 [facility] Blood platelet mean volumeOr dered By: Ganesh Garcia on 09-11-2022 Platelet mean volume (Bld) [Entitic vol] 10.1 fL 6.2-12.0 [facility] Determination of erythrocyte mean corpuscular volume (MCV)Ordered By: Ganesh Garcia on 09-11-2022 MCV (RBC) [Entitic vol] 85.2 fL 81-99 [facility] Hematocrit Auto (Bld) [Volum e fraction]Ordered By: Ganesh Garcia on 09-11-2022 Hematocrit (Bld) [Volume fraction] 32.3 % 37-47 [facility] - Chemistry and C hemistry - challengeOrdered By: Ganesh Garcia on 09-11-2022 CO2 [Moles/Vol] 27.0 mmol/L 21.0-32.0 [facility] Natriuretic peptide B (Bld) [Mass/Vol] 18.5 pg/mL 0-100 [facility] Urea nitrogen/Creatinine [Mass ratio] 23.6 mg/mg 10-20 [facility] - Hematology and Cell countsOrdered By: Ganesh Garcia on 09-11-2022 Erythrocyte distribution width (RBC) [Entitic vol] 43.0 fL 35.1-43.9 [facility] Erythrocyte distribution width (RBC) [Ratio] 13.7 % 11.6-14.6 [facility] MCH (RBC) [Entitic mass] 27.7 pg 27.0-32.0 [facility] MCHC Auto (RBC) [Mass/Vol]Or dered By: Ganesh Garcia on 09-11-2022 MCHC (RBC) [Mass/Vol] 32.5 g/dL 32-36 [facility] No Panel InformationOrdered By: Ganesh Garcia on 09-11-2022 Estimated GFR (MDRD) Amer 65 mL/min >60 [facility] Comment on above: GFR Calc Estimated GFR (MDRD) Non-Af Amer 54 mL/min >60 [facility] Comment on above: Non- GFR Calc 27.7 pg 27.0-32.0 [facility] 13.7 % 11.6-14.6 [facility] 43.0 fl 35.1-43.9 [facility] 54 mL/min >60 [facility] 65 mL/min >60 [facility] 23.6 RATIO 10-20 [facility] 27.0 mmol/L 21.0-32.0 [facility] 18.5 pg/mL 0-100 [facility] Platelets bldOrdered By: Robert Garcia on 09-11-2022 Platelets (Bld) [#/Vol] 257 10*3/uL 150-450 [facility] Serum or plasma calcium tai urement (mass/volume)Ordered By: Ganesh Garcia on 09-11-2022 Calcium [Mass/Vol] 8.6 mg/dL 8.5-10.1 [facility] Serum or plasma creatinine m easurement (mass/volume)Ordered By: Ganesh Garcia on 09-11-2022 Creatinine [Mass/Vol] 1.10 mg/dL 0.55-1.02 [facility] Comment on above: The validity of the calculated GFR & GFRAA in patients over 70 years has not been determined. Clinical correlation is essential. Serum or plasma urea nitroge n measurement (mass/volume)Ordered By: Ganesh Garcia on 09-11-2022 Urea nitrogen [Mass/Vol] 26 mg/dL 7-18 [facility] Thin prep Papanicolaou smear with manual screeningOrdered By: Ganesh Garcia on 09-11-2022 Thin prep Papanicolaou smear with manual screening 9 -15 [facility] Basophil percentageOrdered B y: Ganesh Garcia on 09-01-2022 Chloride [Moles/Vol] 101 mmol/L 98-107 [facility] Glucose [Mass/Vol] 255 mg/dL 74-106 [facility] Comment on above: Glucose result great er than or equal to 200 mg/dLsuggests DIABETES MELLITUS per A.D.A. criteria. Potassium [Moles/Vol] 4.1 mmol/L 3.5-5.1 [facility] Sodium [Moles/Vol] 135 mmol/L 136-145 [facility] WBC (Bld) [#/Vol] 7.0 10*3/uL 4.4-11.0 [facility] Blood erythrocytes count (nu mber/volume)Ordered By: Ganesh Garcia on 09-01-2022 RBC (Bld) [#/Vol] 3.93 10*6/uL 4.2-5.[address] [facility] Blood hemoglobin measurement (mass/volume)Ordered By: Ganesh Garcia on 09-01-2022 Hemoglobin (Bld) [Mass/Vol] 10.9 g/dL 12.0-15.0 [facility] Blood platelet mean volumeOr dered By: Ganesh Garcia on 09-01-2022 Platelet mean volume (Bld) [Entitic vol] 9.9 fL 6.2-12.0 [facility] Determination of erythrocyte mean corpuscular volume (MCV)Ordered By: Ganesh Garcia on 09-01-2022 MCV (RBC) [Entitic vol] 84.7 fL 81-99 [facility] Hematocrit Auto (Bld) [Volum e fraction]Ordered By: Ganesh Garcia on 09-01-2022 Hematocrit (Bld) [Volume fraction] 33.3 % 37-47 [facility] - Chemistry and C hemistry - challengeOrdered By: Ganesh Garcia on 09-01-2022 CO2 [Moles/Vol] 27.0 mmol/L 21.0-32.0 [facility] Urea nitrogen/Creatinine [Mass ratio] 13.4 mg/mg 10-20 [facility] - Hematology and Cell countsOrdered By: Ganesh Garcia on 09-01-2022 Erythrocyte distribution width (RBC) [Entitic vol] 42.9 fL 35.1-43.9 [facility] Erythrocyte distribution width (RBC) [Ratio] 13.9 % 11.6-14.6 [facility] MCH (RBC) [Entitic mass] 27.7 pg 27.0-32.0 [facility] MCHC Auto (RBC) [Mass/Vol]Or dered By: Ganesh Garcia on 09-01-2022 MCHC (RBC) [Mass/Vol] 32.7 g/dL 32-36 [facility] No Panel InformationOrdered By: Ganesh Garcia on 09-01-2022 Estimated GFR (MDRD) Amer 60 mL/min >60 [facility] Comment on above: GFR Calc Estimated GFR (MDRD) Non-Af Amer 49 mL/min >60 [facility] Comment on above: Non- GFR Calc Platelets bldOrdered By: Robert Garcia on 09-01-2022 Platelets (Bld) [#/Vol] 328 10*3/uL 150-450 [facility] Serum or plasma calcium tai urement (mass/volume)Ordered By: Ganesh Garcia on 09-01-2022 Calcium [Mass/Vol] 9.1 mg/dL 8.5-10.1 [facility] Serum or plasma creatinine m easurement (mass/volume)Ordered By: Ganesh Garcia on 09-01-2022 Creatinine [Mass/Vol] 1.19 mg/dL 0.55-1.02 [facility] Comment on above: The validity of the calculated GFR & GFRAA in patients over 70 years has not been determined. Clinical correlation is essential. Serum or plasma urea nitroge n measurement (mass/volume)Ordered By: Ganesh Garcia on 09-01-2022 Urea nitrogen [Mass/Vol] 16 mg/dL 7-18 [facility] Thin prep Papanicolaou smear with manual screeningOrdered By: Ganesh Garcia on 09-01-2022 Thin prep Papanicolaou smear with manual screening 7 5-15 [facility] Absolute lymphocyte countOrd ered By: Dr. Govea on 08-24-2022 Lymphocytes Auto (Unsp spec) [#/Vol] 3.37 10*3/uL 0.83-4.51 [facility] Basophil percentageOrdered B y: Dr. Govea on 08-24-2022 Basophils/100 WBC (Bld) 0.6 % 0-1 [facility] Bilirubin [Mass/Vol] 0.40 mg/dL 0.20-1.00 [facility] Comment on above: For patients on eltr ombopag therapy, use of Dimension [place] TBIL is not recommended. Chloride [Moles/Vol] 97 mmol/L 98-107 [facility] Eosinophils/100 WBC (Bld) 1.6 % 0-5 [facility] Glucose [Mass/Vol] 235 mg/dL 74-106 [facility] Comment on above: Glucose result great er than or equal to 200 mg/dLsuggests DIABETES MELLITUS per A.D.A. criteria. Neutrophils (Bld) [#/Vol] 4.6 10*3/uL 2.0-7.7 [facility] Neutrophils/100 WBC (Bld) 53.6 % 47-70 [facility] Potassium [Moles/Vol] 4.4 mmol/L 3.5-5.1 [facility] Protein [Mass/Vol] 7.0 g/dL 6.4-8.2 [facility] Sodium [Moles/Vol] 134 mmol/L 136-145 [facility] WBC (Bld) [#/Vol] 8.6 10*3/uL 4.4-11.0 [facility] Blood erythrocytes count (nu mber/volume)Ordered By: Dr. Govea on 08-24-2022 RBC (Bld) [#/Vol] 4.30 10*6/uL 4.2-5.[address] [facility] Blood hemoglobin measurement (mass/volume)Ordered By: Dr. Govea on 08-24-2022 Hemoglobin (Bld) [Mass/Vol] 12.0 g/dL 12.0-15.0 [facility] Blood lymphocytes/100 leukoc ytesOrdered By: Dr. Govea on 08-24-2022 Lymphocytes/100 WBC (Bld) 39.0 % 19-41 [facility] Blood monocytes/100 leukocyt esOrdered By: Dr. Govea on 08-24-2022 Monocytes/100 WBC (Bld) 5.0 % 0-10 [facility] Blood platelet mean volumeOr dered By: Dr. Govea on 08-24-2022 Platelet mean volume (Bld) [Entitic vol] 9.5 fL 6.2-12.0 [facility] Determination of erythrocyte mean corpuscular volume (MCV)Ordered By: Dr. Govea on 08-24-2022 MCV (RBC) [Entitic vol] 83.5 fL 81-99 [facility] Direct bilirubinOrdered By: Dr. Govea on 08-24-2022 Bilirubin.direct [Mass/Vol] 0.13 mg/dL 0.00-0.30 [facility] Hematocrit Auto (Bld) [Volum e fraction]Ordered By: Dr. Govea on 08-24-2022 Hematocrit (Bld) [Volume fraction] 35.9 % 37-47 [facility] - Chemistry and C hemistry - challengeOrdered By: Dr. Govea on 08-24-2022 ALP [Catalytic activity/Vol] 61 U/L 45-117 [facility] ALT [Catalytic activity/Vol] 23 U/L 13-56 [facility] CO2 [Moles/Vol] 28.0 mmol/L 21.0-32.0 [facility] Globulin (S) [Mass/Vol] 4.1 g/dL 2.2-4.2 [facility] Lipase [Catalytic activity/Vol] 92 U/L 73-393 [facility] Urea nitrogen/Creatinine [Mass ratio] 16.8 mg/mg 10-20 [facility] - Hematology and Cell countsOrdered By: Dr. Govea on 08-24-2022 Erythrocyte distribution width (RBC) [Entitic vol] 42.8 fL 35.1-43.9 [facility] Erythrocyte distribution width (RBC) [Ratio] 14.2 % 11.6-14.6 [facility] Immature granulocytes/100 WBC (Bld) 0.200 % 0.0-0.9 [facility] Comment on above: IG% - Immature Granu locytes (promyelocytes, myelocytes and metamyelocytes) > 1% indicates that a LEFT SHIFT is Present. MCH (RBC) [Entitic mass] 27.9 pg 27.0-32.0 [facility] Nucleated RBC/100 WBC (Bld) [Ratio] 0 % 0-5 [facility] MCHC Auto (RBC) [Mass/Vol]Or dered By: Dr. Govea on 08-24-2022 MCHC (RBC) [Mass/Vol] 33.4 g/dL 32-36 [facility] No Panel InformationOrdered By: Dr. Govea on 08-24-2022 Troponin I High Sensitivity 10 pg/mL 3.0-54.0 [facility] Comment on above: Please Note: New Carolann t Units and Gender Specific Reference Ranges. For more information see Policy Stat Procedure [place] High Sensitivity Troponin (TNIH) and attachments. D-Dimer Quantitative (PE/DVT) 0.67 FEU/ug/m 0.27-0.49 [facility] Comment on above: D-Dimer ELEVATED (>0 .49): Additional studies and clinicalassessments are indicated to conclude diagnosis of:Deep Vein Thrombosis (DVT) or Pulmonary Embolism (PE)CRITICAL VALUE VERIFIED. CALLED TO PAT CANTU08/24/22 [id number] Maurice Cast.RESULTS READ BACK BY SAME . Estimated Creatinine Clearance Calc 30.43 ml/min [facility] Estimated GFR (MDRD) Amer 48 mL/min >60 [facility] Comment on above: GFR Calc Estimated GFR (MDRD) Non-Af Amer 40 mL/min >60 [facility] Comment on above: Non- GFR Calc Platelets bldOrdered By: Dr. Govea on 08-24-2022 Platelets (Bld) [#/Vol] 344 10*3/uL 150-450 [facility] Serum or plasma albumin tai urement (mass/volume)Ordered By: Dr. Govea on 08-24-2022 Albumin [Mass/Vol] 2.9 g/dL 3.2-5.0 [facility] Serum or plasma calcium tai urement (mass/volume)Ordered By: Dr. Govea on 08-24-2022 Calcium [Mass/Vol] 8.8 mg/dL 8.5-10.1 [facility] Serum or plasma creatinine m easurement (mass/volume)Ordered By: Dr. Govea on 08-24-2022 Creatinine [Mass/Vol] 1.43 mg/dL 0.55-1.02 [facility] Comment on above: The validity of the calculated GFR & GFRAA in patients over 70 years has not been determined. Clinical correlation is essential. Serum or plasma urea nitroge n measurement (mass/volume)Ordered By: Dr. Govea on 08-24-2022 Urea nitrogen [Mass/Vol] 24 mg/dL 7-18 [facility] Thin prep Papanicolaou smear with manual screeningOrdered By: Dr. Govea on 08-24-2022 Thin prep Papanicolaou smear with manual screening 22 U/L 15-37 [facility] Thin prep Papanicolaou smear with manual screening 9 5-15 [facility] Basophil percentageOrdered B y: Ganesh Garcia on 08-18-2022 Chloride [Moles/Vol] 103 mmol/L 98-107 [facility] Glucose [Mass/Vol] 158 mg/dL 74-106 [facility] Comment on above: Fasting Glucose resu lt greater than or equal to 126 mg/dL suggests DIABETES MELLITUS per A.D.A. criteria. Potassium [Moles/Vol] 4.2 mmol/L 3.5-5.1 [facility] Sodium [Moles/Vol] 137 mmol/L 136-145 [facility] WBC (Bld) [#/Vol] 7.1 10*3/uL 4.4-11.0 [facility] Blood erythrocytes count (nu mber/volume)Ordered By: Ganesh Garcia on 08-18-2022 RBC (Bld) [#/Vol] 3.85 10*6/uL 4.2-5.[address] [facility] Blood hemoglobin measurement (mass/volume)Ordered By: Ganesh Garcia on 08-18-2022 Hemoglobin (Bld) [Mass/Vol] 11.0 g/dL 12.0-15.0 [facility] Blood platelet mean volumeOr dered By: Ganesh Garcia on 08-18-2022 Platelet mean volume (Bld) [Entitic vol] 9.6 fL 6.2-12.0 [facility] Determination of erythrocyte mean corpuscular volume (MCV)Ordered By: Ganesh Garcia on 08-18-2022 MCV (RBC) [Entitic vol] 87.3 fL 81-99 [facility] Hematocrit Auto (Bld) [Volum e fraction]Ordered By: Ganesh Garcia on 08-18-2022 Hematocrit (Bld) [Volume fraction] 33.6 % 37-47 [facility] Laboratory - Chemistry and C hemistry - challengeOrdered By: Ganesh Garcia on 08-18-2022 CO2 [Moles/Vol] 29.0 mmol/L 21.0-32.0 [facility] Urea nitrogen/Creatinine [Mass ratio] 21.4 mg/mg 10-20 [facility] Laboratory - Hematology and Cell countsOrdered By: Ganesh Garcia on 08-18-2022 Erythrocyte distribution width (RBC) [Entitic vol] 45.0 fL 35.1-43.9 [facility] Erythrocyte distribution width (RBC) [Ratio] 14.1 % 11.6-14.6 [facility] MCH (RBC) [Entitic mass] 28.6 pg 27.0-32.0 [facility] MCHC Auto (RBC) [Mass/Vol]Or dered By: Ganesh Garcia on 08-18-2022 MCHC (RBC) [Mass/Vol] 32.7 g/dL 32-36 [facility] No Panel InformationOrdered By: Ganesh Garcia on 08-18-2022 Estimated GFR (MDRD) Amer 64 mL/min >60 [facility] Comment on above: GFR Calc Estimated GFR (MDRD) Non-Af Amer 53 mL/min >60 [facility] Comment on above: Non- GFR Calc Platelets bldOrdered By: Robert Garcia on 08-18-2022 Platelets (Bld) [#/Vol] 310 10*3/uL 150-450 [facility] Serum or plasma calcium tai urement (mass/volume)Ordered By: Ganesh Garcia on 08-18-2022 Calcium [Mass/Vol] 9.3 mg/dL 8.5-10.1 [facility] Serum or plasma creatinine m easurement (mass/volume)Ordered By: Ganesh Garcia on 08-18-2022 Creatinine [Mass/Vol] 1.12 mg/dL 0.55-1.02 [facility] Comment on above: The validity of the calculated GFR & GFRAA in patients over 70 years has not been determined. Clinical correlation is essential. Serum or plasma urea nitroge n measurement (mass/volume)Ordered By: Ganesh Garcia on 08-18-2022 Urea nitrogen [Mass/Vol] 24 mg/dL 7-18 [facility] Thin prep Papanicolaou smear with manual screeningOrdered By: Ganesh Garcia on 08-18-2022 Thin prep Papanicolaou smear with manual screening 5 5-15 [facility] Basophil percentageOrdered B y: Ganesh Garcia on 08-04-2022 Chloride [Moles/Vol] 102 mmol/L 98-107 [facility] Glucose [Mass/Vol] 215 mg/dL 74-106 [facility] Comment on above: Glucose result great er than or equal to 200 mg/dLsuggests DIABETES MELLITUS per A.D.A. criteria. Potassium [Moles/Vol] 4.1 mmol/L 3.5-5.1 [facility] Sodium [Moles/Vol] 137 mmol/L 136-145 [facility] WBC (Bld) [#/Vol] 6.8 10*3/uL 4.4-11.0 [facility] Blood erythrocytes count (nu mber/volume)Ordered By: Ganesh Garcia on 08-04-2022 RBC (Bld) [#/Vol] 3.88 10*6/uL 4.2-5.[address] [facility] Blood hemoglobin measurement (mass/volume)Ordered By: Ganesh Garcia on 08-04-2022 Hemoglobin (Bld) [Mass/Vol] 10.8 g/dL 12.0-15.0 [facility] Blood platelet mean volumeOr dered By: Ganesh Garcia on 08-04-2022 Platelet mean volume (Bld) [Entitic vol] 9.9 fL 6.2-12.0 [facility] Determination of erythrocyte mean corpuscular volume (MCV)Ordered By: Ganesh Garcia on 08-04-2022 MCV (RBC) [Entitic vol] 87.9 fL 81-99 [facility] Hematocrit Auto (Bld) [Volum e fraction]Ordered By: Ganesh Garcia on 08-04-2022 Hematocrit (Bld) [Volume fraction] 34.1 % 37-47 [facility] Laboratory - Chemistry and C hemistry - challengeOrdered By: Ganesh Garcia on 08-04-2022 CO2 [Moles/Vol] 28.0 mmol/L 21.0-32.0 [facility] Urea nitrogen/Creatinine [Mass ratio] 19.1 mg/mg 10-20 [facility] Laboratory - Hematology and Cell countsOrdered By: Ganesh Garcia on 08-04-2022 Erythrocyte distribution width (RBC) [Entitic vol] 44.9 fL 35.1-43.9 [facility] Erythrocyte distribution width (RBC) [Ratio] 14.1 % 11.6-14.6 [facility] MCH (RBC) [Entitic mass] 27.8 pg 27.0-32.0 [facility] MCHC Auto (RBC) [Mass/Vol]Or dered By: Ganesh Garcia on 08-04-2022 MCHC (RBC) [Mass/Vol] 31.7 g/dL 32-36 [facility] No Panel InformationOrdered By: Ganesh Garcia on 08-04-2022 Estimated GFR (MDRD) Amer 74 mL/min >60 [facility] Comment on above: GFR Calc Estimated GFR (MDRD) Non-Af Amer 61 mL/min >60 [facility] Comment on above: Non- GFR Calc Platelets bldOrdered By: Robert Garcia on 08-04-2022 Platelets (Bld) [#/Vol] 319 10*3/uL 150-450 [facility] Serum or plasma calcium tai urement (mass/volume)Ordered By: Ganesh Garcia on 08-04-2022 Calcium [Mass/Vol] 8.9 mg/dL 8.5-10.1 [facility] Serum or plasma creatinine m easurement (mass/volume)Ordered By: Ganesh Gacria on 08-04-2022 Creatinine [Mass/Vol] 0.99 mg/dL 0.55-1.02 [facility] Comment on above: The validity of the calculated GFR & GFRAA in patients over 70 years has not been determined. Clinical correlation is essential. Serum or plasma urea nitroge n measurement (mass/volume)Ordered By: Ganesh Garcia on 08-04-2022 Urea nitrogen [Mass/Vol] 19 mg/dL 7-18 [facility] Thin prep Papanicolaou smear with manual screeningOrdered By: Ganesh Garcia on 08-04-2022 Thin prep Papanicolaou smear with manual screening 7 5-15 [facility] Basophil percentageon 2021 Chloride [Moles/Vol] 100 mmol/L 98-107 [facility] Work Phone: Cholesterol [Mass/Vol] 96 mg/dL <200 [facility] Work Phone: Comment on above: <200 mg/dL Desirable 200-240 mg/dL Borderline >240 mg/dL High Risk Glucose [Mass/Vol] 263 mg/dL 74-106 [facility] Work Phone: Comment on above: Glucose result great er than or equal to 200 mg/dLsuggests DIABETES MELLITUS per A.D.A. criteria. Potassium [Moles/Vol] 4.3 mmol/L 3.5-5.1 [facility] Work Phone: Sodium [Moles/Vol] 136 mmol/L 136-145 [facility] Work Phone: Triglyceride [Mass/Vol] 361 mg/dL <199 [facility] Work Phone: Comment on above: The drugs N-Acetylcy steine and Metamizole may falsely depress this assay.Serum Triglycerides Reference Interval Normal <150 mg/dL Borderline high 150 - 199 mg/dL High 200 - 499 mg/dL Very High > or = 500 mg/dL WBC (Bld) [#/Vol] 7.6 10*3/uL 4.4-11.0 [facility] Work Phone: Blood erythrocytes count (nu mber/volume)on 07-20-2022 RBC (Bld) [#/Vol] 3.77 10*6/uL 4.2-5.[address] [facility] Work Phone: Blood hemoglobin measurement (mass/volume)on 07-20-2022 Hemoglobin (Bld) [Mass/Vol] 10.6 g/dL 12.0-15.0 [facility] Work Phone: Blood platelet mean volumeon 07-20-2022 Platelet mean volume (Bld) [Entitic vol] 10.0 fL 6.2-12.0 [facility] Work Phone: Determination of erythrocyte mean corpuscular volume (MCV)on 07-20-2022 MCV (RBC) [Entitic vol] 91.0 fL 81-99 [facility] Work Phone: Hematocrit Auto (Bld) [Volum e fraction]on 07-20-2022 Hematocrit (Bld) [Volume fraction] 34.3 % 37-47 [facility] Work Phone: Laboratory - Chemistry and C hemistry - challengeon 07-20-2022 CO2 [Moles/Vol] 27.0 mmol/L 21.0-32.0 [facility] Work Phone: Urea nitrogen/Creatinine [Mass ratio] 18.3 mg/mg 10-20 [facility] Work Phone: Laboratory - Hematology and Cell countson 07-20-2022 Erythrocyte distribution width (RBC) [Entitic vol] 44.6 fL 35.1-43.9 [facility] Work Phone: Erythrocyte distribution width (RBC) [Ratio] 13.5 % 11.6-14.6 [facility] Work Phone: MCH (RBC) [Entitic mass] 28.1 pg 27.0-32.0 [facility] Work Phone: MCHC Auto (RBC) [Mass/Vol]on 07-20-2022 MCHC (RBC) [Mass/Vol] 30.9 g/dL 32-36 [facility] Work [facility]: No Panel Informationon 07-20 Estimated GFR (MDRD) Amer 70 mL/min >60 [facility] Work Phone: Comment on above: GFR Calc Estimated GFR (MDRD) Non-Af Amer 58 mL/min >60 [facility] Work Phone: Comment on above: Non- GFR Calc Platelets bldon 07-20-2022 Platelets (Bld) [#/Vol] 274 10*3/uL 150-450 [facility] Work Phone: Serum or plasma calcium tai urement (mass/volume)on 07-20-2022 Calcium [Mass/Vol] 8.7 mg/dL 8.5-10.1 [facility] Work Phone: Serum or plasma cholesterol in HDL measurement (mass/volume)on 07-20-2022 Cholesterol in HDL [Mass/Vol] 17 mg/dL >40 [facility] Work Phone: Comment on above: The drugs N-Acetylcy steine and Metamizole may falsely depress this assay. Reference Range HDL <40 mg/dL Low HDL Cholesterol HDL >or= 60 mg/dL High HDL Cholesterol Serum or plasma cholesterol in VLDL measurement (mass/volume)on 07-20-2022 Cholesterol in VLDL [Mass/Vol] 72 mg/dL 5-40 [facility] Work Phone: Serum or plasma creatinine m easurement (mass/volume)on 07-20-2022 Creatinine [Mass/Vol] 1.04 mg/dL 0.55-1.02 [facility] Work Phone: Comment on above: The validity of the calculated GFR & GFRAA in patients over 70 years has not been determined. Clinical correlation is essential. Serum or plasma low density lipoprotein (LDL) cholesterol measurement (mass/volume)on 07-20-2022 Cholesterol in LDL [Mass/Vol] 7 mg/dL 0-130 [facility] Work Phone: Serum or plasma urea nitroge n measurement (mass/volume)on 07-20-2022 Urea nitrogen [Mass/Vol] 19 mg/dL 7-18 [facility] Work Phone: [phone] Thin prep Papanicolaou smear with manual screeningon 07-20-2022 Thin prep Papanicolaou smear with manual screening 9 5-15 [facility] Work Phone: Basophil percentageon 2021 Basophil percentage 25-50 SEEN /hpf 0-5 [facility] Work Phone: Bilirubin Test strip Ql (U)o n 07-13-2022 Bilirubin Ql (U) Negative Negative [facility] Work Phone: Ketones Test strip Ql (U)on 07-13-2022 Ketones Ql (U) Negative Negative [facility] Work Phone: Mucus LM Ql (Urine sed)on Mucus Ql (Urine sed) 0 SEEN /hpf [facility] Work Phone: Nitrite Test strip Ql (U)on 07-13-2022 Nitrite Ql (U) Negative Negative [facility] Work Phone: Protein Test strip Ql (U)on 07-13-2022 Protein Ql (U) Negative Negative [facility] Work Phone: Squamous epithelial cells de tection in urine sediment by light microscopyon 07-13-2022 Epithelial cells.squamous LM Ql (Urine sed) 0-5 SEEN /hpf 5-10 [facility] Work Phone: Urine blood detectionon 06-25 RBC Ql (U) 10 /ul Negative [facility] Work Phone: [phone] RBC Ql (U) 0-5 SEEN /hpf 0-5 [facility] Work Phone: Urine clarityon 07-13-2022 Clarity (U) Sl. Cloudy Clear [facility] Work Phone: Urine color determinationon 07-13-2022 Color (U) Yellow Yellow [facility] Work Phone: Urine glucose detectionon Glucose Ql (U) 50 mg/dl Normal [facility] Work Phone: Urine leukocyte esterase det ection by dipstickon 07-13-2022 Leukocyte esterase Test strip Ql (U) 500 /ul Negative [facility] Work Phone: Urine pHon 07-13-2022 pH (U) 6.0 [pH] 5.0 - 8.0 [facility] Work Phone: Urine sediment bacteria coun t by microscopy (number/high power field)on 07-13-2022 Bacteria LM.HPF (Urine sed) [#/Area] 2 /[HPF] None Seen [facility] Work Phone: Urine specific gravity measu rementon 07-13-2022 Specific gravity (U) [Rel density] 1.010 1.002-1.03 0 [facility] Work Phone: Urobilinogen Auto test strip Ql (U)on 07-13-2022 Urobilinogen Ql (U) Normal mg/dl Normal [facility] Work Phone: Basophil percentageon 2021 Chloride [Moles/Vol] 101 mmol/L 98-107 [facility] Work Phone: Glucose [Mass/Vol] 240 mg/dL 74-106 [facility] Work Phone: Comment on above: Glucose result great er than or equal to 200 mg/dLsuggests DIABETES MELLITUS per A.D.A. criteria. Potassium [Moles/Vol] 3.9 mmol/L 3.5-5.1 [facility] Work Phone: Sodium [Moles/Vol] 136 mmol/L 136-145 [facility] Work Phone: WBC (Bld) [#/Vol] 7.8 10*3/uL 4.4-11.0 [facility] Work Phone: Blood erythrocytes count (nu mber/volume)on 07-07-2022 RBC (Bld) [#/Vol] 3.88 10*6/uL 4.2-5.[address] [facility] Work Phone: Blood hemoglobin measurement (mass/volume)on 07-07-2022 Hemoglobin (Bld) [Mass/Vol] 11.1 g/dL 12.0-15.0 [facility] Work Phone: Blood platelet mean volumeon 07-07-2022 Platelet mean volume (Bld) [Entitic vol] 9.9 fL 6.2-12.0 [facility] Work Phone: Determination of erythrocyte mean corpuscular volume (MCV)on 07-07-2022 MCV (RBC) [Entitic vol] 89.4 fL 81-99 [facility] Work Phone: Hematocrit Auto (Bld) [Volum e fraction]on 07-07-2022 Hematocrit (Bld) [Volume fraction] 34.7 % 37-47 [facility] Work Phone: Laboratory - Chemistry and C hemistry - challengeon 07-07-2022 CO2 [Moles/Vol] 26.0 mmol/L 21.0-32.0 [facility] Work Phone: Urea nitrogen/Creatinine [Mass ratio] 18.7 mg/mg 10-20 [facility] Work Phone: Laboratory - Hematology and Cell countson 07-07-2022 Erythrocyte distribution width (RBC) [Entitic vol] 44.2 fL 35.1-43.9 [facility] Work Phone: Erythrocyte distribution width (RBC) [Ratio] 13.5 % 11.6-14.6 [facility] Work Phone: MCH (RBC) [Entitic mass] 28.6 pg 27.0-32.0 [facility] Work Phone: MCHC Auto (RBC) [Mass/Vol]on 07-07-2022 MCHC (RBC) [Mass/Vol] 32.0 g/dL 32-36 [facility] Work Phone: No Panel Informationon 07-07 Estimated GFR (MDRD) Amer 68 mL/min >60 [facility] Work Phone: Comment on above: GFR Calc Estimated GFR (MDRD) Non-Af Amer 56 mL/min >60 [facility] Work Phone: Comment on above: Non- GFR Calc Platelets bldon 07-07-2022 Platelets (Bld) [#/Vol] 310 10*3/uL 150-450 [facility] Work Phone: Serum or plasma calcium tai urement (mass/volume)on 07-07-2022 Calcium [Mass/Vol] 9.0 mg/dL 8.5-10.1 [facility] Work Phone: Serum or plasma creatinine m easurement (mass/volume)on 07-07-2022 Creatinine [Mass/Vol] 1.07 mg/dL 0.55-1.02 [facility] Work Phone: Comment on above: The validity of the calculated GFR & GFRAA in patients over 70 years has not been determined. Clinical correlation is essential. Serum or plasma urea nitroge n measurement (mass/volume)on 07-07-2022 Urea nitrogen [Mass/Vol] 20 mg/dL 7-18 [facility] Work Phone: Thin prep Papanicolaou smear with manual screeningon 07-07-2022 Thin prep Papanicolaou smear with manual screening 9 5-15 [facility] Work Phone: No Panel Informationon 07-03 Thyroid Stimulating Hormone (TSH) 1.98 uIU/mL 0.358-3.74 [facility] Work Phone: No Panel Informationon 07-01 Thyroid Stimulating Hormone (TSH) 1.82 uIU/mL 0.358-3.74 [facility] Work Phone: Whole blood hemoglobin A1c/t otal hemoglobin ratio (mass fraction)on 07-01-2022 HbA1c (Bld) [Mass fraction] 7.8 % 3.8-5.6 [facility] Work Phone: Comment on above: Normal < 5.7 % Predi abetic 5.7 - 6.4 % Diabetic >or= 6.5 % Please note range changes. Basophil percentageon 2021 Chloride [Moles/Vol] 99 mmol/L 98-107 [facility]: Glucose [Mass/Vol] 193 mg/dL 74-106 [facility] Work Phone: Comment on above: Fasting Glucose resu lt greater than or equal to 126 mg/dL suggests DIABETES MELLITUS per A.D.A. criteria. Potassium [Moles/Vol] 4.1 mmol/L 3.5-5.1 [facility] Work Phone: Sodium [Moles/Vol] 137 mmol/L 136-145 [facility] Work Phone: WBC (Bld) [#/Vol] 7.4 10*3/uL 4.4-11.0 [facility] Work Phone: Blood erythrocytes count (nu mber/volume)on 06-23-2022 RBC (Bld) [#/Vol] 3.60 10*6/uL 4.2-5.[facility]: Blood hemoglobin measurement (mass/volume)on 06-23-2022 Hemoglobin (Bld) [Mass/Vol] 10.6 g/dL 12.0-15.0 [facility] Work Phone: Blood platelet mean volumeon 06-23-2022 Platelet mean volume (Bld) [Entitic vol] 9.5 fL 6.2-12.0 [facility] Work Phone: Determination of erythrocyte mean corpuscular volume (MCV)on 06-23-2022 MCV (RBC) [Entitic vol] 89.7 fL 81-99 [facility] Work Phone: Hematocrit Auto (Bld) [Volum e fraction]on 06-23-2022 Hematocrit (Bld) [Volume fraction] 32.3 % 37-47 [facility] Work Phone: Laboratory - Chemistry and C hemistry - challengeon 06-23-2022 CO2 [Moles/Vol] 28.0 mmol/L 21.0-32.0 [facility] Work Phone: Urea nitrogen/Creatinine [Mass ratio] 19.3 mg/mg 10-20 [facility] Work Phone: Laboratory - Hematology and Cell countson 06-23-2022 Erythrocyte distribution width (RBC) [Entitic vol] 43.2 fL 35.1-43.9 [facility] Work Phone: Erythrocyte distribution width (RBC) [Ratio] 13.2 % 11.6-14.6 [facility] Work Phone: MCH (RBC) [Entitic mass] 29.4 pg 27.0-32.0 [facility] Work Phone: MCHC Auto (RBC) [Mass/Vol]on 06-23-2022 MCHC (RBC) [Mass/Vol] 32.8 g/dL 32-36 [facility] Work Phone: No Panel Informationon 06-23 Estimated GFR (MDRD) Amer 63 mL/min >60 [facility] Work Phone: Comment on above: GFR Calc Estimated GFR (MDRD) Non-Af Amer 52 mL/min >60 [facility] Work Phone: Comment on above: Non- GFR Calc Platelets bldon 06-23-2022 Platelets (Bld) [#/Vol] 348 10*3/uL 150-450 [facility] Work Phone: Serum or plasma calcium tai urement (mass/volume)on 06-23-2022 Calcium [Mass/Vol] 8.8 mg/dL 8.5-10.1 [facility] Work Phone: Serum or plasma creatinine m easurement (mass/volume)on 06-23-2022 Creatinine [Mass/Vol] 1.14 mg/dL 0.55-1.02 [facility] Work Phone: Comment on above: The validity of the calculated GFR & GFRAA in patients over 70 years has not been determined. Clinical correlation is essential. Serum or plasma urea nitroge n measurement (mass/volume)on 06-23-2022 Urea nitrogen [Mass/Vol] 22 mg/dL 7-18 [facility] Work Phone: Thin prep Papanicolaou smear with manual screeningon 06-23-2022 Thin prep Papanicolaou smear with manual screening 10 5-15 [facility] Work Phone: Absolute lymphocyte counton 06-12-2022 Lymphocytes Auto (Unsp spec) [#/Vol] 2.71 10*3/uL 0.83-4.51 [facility] Work Phone: Basophil percentageon 2021 Basophils/100 WBC (Bld) 0.7 % 0-1 [facility] Work Phone: Chloride [Moles/Vol] 99 mmol/L 98-107 [facility] Work Phone: Eosinophils/100 WBC (Bld) 1.9 % 0-5 [facility] Work Phone: Glucose [Mass/Vol] 244 mg/dL 74-106 [facility] Work Phone: Comment on above: Glucose result great er than or equal to 200 mg/dLsuggests DIABETES MELLITUS per A.D.A. criteria. Neutrophils (Bld) [#/Vol] 4.0 10*3/uL 2.0-7.7 [facility] Work Phone: Neutrophils/100 WBC (Bld) 53.9 % 47-70 [facility] Work Phone: Potassium [Moles/Vol] 4.1 mmol/L 3.5-5.1 [facility] Work Phone: Sodium [Moles/Vol] 135 mmol/L 136-145 [facility] Work Phone: WBC (Bld) [#/Vol] 7.5 10*3/uL 4.4-11.0 [facility] Work Phone: Blood erythrocytes count (nu mber/volume)on 08-19-2022 RBC (Bld) [#/Vol] 4.04 10*6/uL 4.2-5.[address] [facility] Work Phone: Blood hemoglobin measurement (mass/volume)on 06-12-2022 Hemoglobin (Bld) [Mass/Vol] 11.9 g/dL 12.0-15.0 [facility] Work Phone: Blood lymphocytes/100 leukoc yteson 06-12-2022 Lymphocytes/100 WBC (Bld) 36.3 % 19-41 [facility] Work Phone: Blood monocytes/100 leukocyt eson 06-12-2022 Monocytes/100 WBC (Bld) 6.7 % 0-10 [facility] Work Phone: Blood platelet mean volumeon 06-12-2022 Platelet mean volume (Bld) [Entitic vol] 9.6 fL 6.2-12.0 [facility] Work Phone: Determination of erythrocyte mean corpuscular volume (MCV)on 06-12-2022 MCV (RBC) [Entitic vol] 90.8 fL 81-99 [facility] Work Phone: Hematocrit Auto (Bld) [Volum e fraction]on 06-12-2022 Hematocrit (Bld) [Volume fraction] 36.7 % 37-47 [facility] Work Phone: Laboratory - Chemistry and C hemistry - challengeon 06-12-2022 CO2 [Moles/Vol] 28.0 mmol/L 21.0-32.0 [facility] Work Phone: Natriuretic peptide B (Bld) [Mass/Vol] 9.7 pg/mL 0-100 [facility] Work Phone: Urea nitrogen/Creatinine [Mass ratio] 20.9 mg/mg 10-20 [facility] Work Phone: Laboratory - Hematology and Cell countson 06-12-2022 Erythrocyte distribution width (RBC) [Entitic vol] 45.7 fL 35.1-43.9 [facility] Work Phone: Erythrocyte distribution width (RBC) [Ratio] 13.8 % 11.6-14.6 [facility] Work Phone: Immature granulocytes/100 WBC (Bld) 0.500 % 0.0-0.9 [facility] Work Phone: Comment on above: IG% - Immature Granu locytes (promyelocytes, myelocytes and metamyelocytes) > 1% indicates that a LEFT SHIFT is Present. MCH (RBC) [Entitic mass] 29.5 pg 27.0-32.0 [facility] Work Phone: Nucleated RBC/100 WBC (Bld) [Ratio] 0 % 0-5 [facility] Work Phone: MCHC Auto (RBC) [Mass/Vol]on 06-12-2022 MCHC (RBC) [Mass/Vol] 32.4 g/dL 32-36 [facility] Work Phone: No Panel Informationon 06-12 Estimated GFR (MDRD) Amer 65 mL/min >60 [facility] Work Phone: Comment on above: GFR Calc Estimated GFR (MDRD) Non-Af Amer 54 mL/min >60 [facility] Work Phone: Comment on above: Non- GFR Calc Platelets bldon 06-12-2022 Platelets (Bld) [#/Vol] 323 10*3/uL 150-450 [facility] Work Phone: Serum or plasma calcium tai urement (mass/volume)on 06-12-2022 Calcium [Mass/Vol] 8.7 mg/dL 8.5-10.1 [facility] Work Phone: Serum or plasma creatinine m easurement (mass/volume)on 06-12-2022 Creatinine [Mass/Vol] 1.10 mg/dL 0.55-1.02 [facility] Work Phone: Comment on above: The validity of the calculated GFR & GFRAA in patients over 70 years has not been determined. Clinical correlation is essential. Serum or plasma urea nitroge n measurement (mass/volume)on 06-12-2022 Urea nitrogen [Mass/Vol] 23 mg/dL 7-18 [facility] Work Phone: Thin prep Papanicolaou smear with manual screeningon 06-12-2022 Thin prep Papanicolaou smear with manual screening 8 5-15 [facility] Work Phone: Basophil percentageon 2021 Chloride [Moles/Vol] 103 mmol/L 98-107 [facility] Phone: Glucose [Mass/Vol] 255 mg/dL 74-106 [facility] Work Phone: Comment on above: Glucose result great er than or equal to 200 mg/dLsuggests DIABETES MELLITUS per A.D.A. criteria. Potassium [Moles/Vol] 3.7 mmol/L 3.5-5.1 [facility] Work Phone: Sodium [Moles/Vol] 138 mmol/L 136-145 [facility] Work Phone: WBC (Bld) [#/Vol] 6.8 10*3/uL 4.4-11.0 [facility] Work Phone: Blood erythrocytes count (nu mber/volume)on 06-09-2022 RBC (Bld) [#/Vol] 3.50 10*6/uL 4.2-5.4 [facility] Blood hemoglobin measurement (mass/volume)on 06-09-2022 Hemoglobin (Bld) [Mass/Vol] 10.5 g/dL 12.0-15.0 [facility] Work Phone: Blood platelet mean volumeon 06-09-2022 Platelet mean volume (Bld) [Entitic vol] 9.7 fL 6.2-12.0 [facility] Work Phone: Determination of erythrocyte mean corpuscular volume (MCV)on 06-09-2022 MCV (RBC) [Entitic vol] 93.1 fL 81-99 [facility] Work Phone: Hematocrit Auto (Bld) [Volum e fraction]on 06-09-2022 Hematocrit (Bld) [Volume fraction] 32.6 % 37-47 [facility] Work Phone: Laboratory - Chemistry and C hemistry - challengeon 06-09-2022 CO2 [Moles/Vol] 27.0 mmol/L 21.0-32.0 [facility] Work Phone: Urea nitrogen/Creatinine [Mass ratio] 16.8 mg/mg 10-20 [facility] Work Phone: Laboratory - Hematology and Cell countson 06-09-2022 Erythrocyte distribution width (RBC) [Entitic vol] 47.2 fL 35.1-43.9 [facility] Work Phone: Erythrocyte distribution width (RBC) [Ratio] 13.8 % 11.6-14.6 [facility] Work Phone: MCH (RBC) [Entitic mass] 30.0 pg 27.0-32.0 [facility] Work Phone: MCHC Auto (RBC) [Mass/Vol]on 06-09-2022 MCHC (RBC) [Mass/Vol] 32.2 g/dL 32-36 [facility] Work Phone: No Panel Informationon 06-09 Estimated GFR (MDRD) Amer 68 mL/min >60 [facility] Work Phone: Comment on above: GFR Calc Estimated GFR (MDRD) Non-Af Amer 56 mL/min >60 [facility] Work Phone: Comment on above: Non- GFR Calc Platelets bldon 06-09-2022 Platelets (Bld) [#/Vol] 229 10*3/uL 150-450 [facility] Work Phone: Serum or plasma calcium tai urement (mass/volume)on 06-09-2022 Calcium [Mass/Vol] 8.6 mg/dL 8.5-10.1 [facility] Work Phone: Serum or plasma creatinine m easurement (mass/volume)on 06-09-2022 Creatinine [Mass/Vol] 1.07 mg/dL 0.55-1.02 [facility] Work Phone: Comment on above: The validity of the calculated GFR & GFRAA in patients over 70 years has not been determined. Clinical correlation is essential. Serum or plasma urea nitroge n measurement (mass/volume)on 06-09-2022 Urea nitrogen [Mass/Vol] 18 mg/dL 7-18 [facility] Work Phone: Thin prep Papanicolaou smear with manual screeningon 06-09-2022 Thin prep Papanicolaou smear with manual screening 8 5-15 [facility] Work Phone: Basophil percentageon 2021 Chloride [Moles/Vol] 101 mmol/L 98-107 [facility] Work Phone: Glucose [Mass/Vol] 261 mg/dL 74-106 [facility] Work Phone: Comment on above: Glucose result great er than or equal to 200 mg/dLsuggests DIABETES MELLITUS per A.D.A. criteria. Potassium [Moles/Vol] 4.0 mmol/L 3.5-5.1 [facility] Work Phone: Sodium [Moles/Vol] 134 mmol/L 136-145 [facility] Work Phone: WBC (Bld) [#/Vol] 6.3 10*3/uL 4.4-11.0 [facility] Work Phone: Blood erythrocytes count (nu mber/volume)on 05-26-2022 RBC (Bld) [#/Vol] 3.47 10*6/uL 4.2-5.[address] [facility] Work Phone: Blood hemoglobin measurement (mass/volume)on 05-26-2022 Hemoglobin (Bld) [Mass/Vol] 10.6 g/dL 12.0-15.0 [facility] Work Phone: Blood platelet mean volumeon 05-26-2022 Platelet mean volume (Bld) [Entitic vol] 9.6 fL 6.2-12.0 [facility] Work Phone: Determination of erythrocyte mean corpuscular volume (MCV)on 05-26-2022 MCV (RBC) [Entitic vol] 92.2 fL 81-99 [facility] Work Phone: Hematocrit Auto (Bld) [Volum e fraction]on 05-26-2022 Hematocrit (Bld) [Volume fraction] 32.0 % 37-47 [facility] Work Phone: Laboratory - Chemistry and C hemistry - challengeon 05-26-2022 CO2 [Moles/Vol] 29.0 mmol/L 21.0-32.0 [facility] Work Phone: Urea nitrogen/Creatinine [Mass ratio] 15.7 mg/mg 10-20 [facility] Work Phone: Laboratory - Hematology and Cell countson 05-26-2022 Erythrocyte distribution width (RBC) [Entitic vol] 48.0 fL 35.1-43.9 [facility] Work Phone: Erythrocyte distribution width (RBC) [Ratio] 14.3 % 11.6-14.6 [facility] Work Phone: MCH (RBC) [Entitic mass] 30.5 pg 27.0-32.0 [facility] Work Phone: MCHC Auto (RBC) [Mass/Vol]on 05-26-2022 MCHC (RBC) [Mass/Vol] 33.1 g/dL 32-36 [facility] Work Phone: No Panel Informationon 05-26 Estimated GFR (MDRD) Amer 55 mL/min >60 [facility] Work Phone: Comment on above: GFR Calc Estimated GFR (MDRD) Non-Af Amer 46 mL/min >60 [facility] Work Phone: Comment on above: Non- GFR Calc Platelets bldon 08-02-2022 Platelets (Bld) [#/Vol] 267 10*3/uL 150-450 [facility] Work Phone: Serum or plasma calcium tai urement (mass/volume)on 05-26-2022 Calcium [Mass/Vol] 8.9 mg/dL 8.5-10.1 [facility] Work Phone: Serum or plasma creatinine m easurement (mass/volume)on 05-26-2022 Creatinine [Mass/Vol] 1.27 mg/dL 0.55-1.02 [facility] Work Phone: Comment on above: The validity of the calculated GFR & GFRAA in patients over 70 years has not been determined. Clinical correlation is essential. Serum or plasma urea nitroge n measurement (mass/volume)on 05-26-2022 Urea nitrogen [Mass/Vol] 20 mg/dL 7-18 [facility] Work Phone: Thin prep Papanicolaou smear with manual screeningon 05-26-2022 Thin prep Papanicolaou smear with manual screening 4 5-15 [facility] Work Phone: Absolute lymphocyte counton 05-21-2022 Lymphocytes Auto (Unsp spec) [#/Vol] 2.91 10*3/uL 0.83-4.51 [facility] Work Phone: Basophil percentageon 2021 Basophils/100 WBC (Bld) 0.9 % 0-1 [facility] Work Phone: Bilirubin [Mass/Vol] 0.20 mg/dL 0.20-1.00 [facility] Work Phone: Comment on above: For patients on eltr ombopag therapy, use of Dimension [place] TBIL is not recommended. Chloride [Moles/Vol] 100 mmol/L 98-107 [facility] Work Phone: Cholesterol [Mass/Vol] 244 mg/dL <200 [facility] Work Phone: Comment on above: <200 mg/dL Desirable 200-240 mg/dL Borderline >240 mg/dL High Risk Eosinophils/100 WBC (Bld) 2.1 % 0-5 [facility] Work Phone: Glucose [Mass/Vol] 197 mg/dL 74-106 [facility] Work Phone: Comment on above: Fasting Glucose resu lt greater than or equal to 126 mg/dL suggests DIABETES MELLITUS per A.D.A. criteria. Neutrophils (Bld) [#/Vol] 2.3 10*3/uL 2.0-7.7 [facility] Work Phone: Neutrophils/100 WBC (Bld) 39.7 % 47-70 [facility] Work Phone: Potassium [Moles/Vol] 4.3 mmol/L 3.5-5.1 [facility] Work Phone: Protein [Mass/Vol] 6.9 g/dL 6.4-8.2 [facility] Work Phone: Sodium [Moles/Vol] 136 mmol/L 136-145 [facility] Work Phone: Triglyceride [Mass/Vol] 337 mg/dL <199 [facility] Work Phone: Comment on above: The drugs N-Acetylcy steine and Metamizole may falsely depress this assay.Serum Triglycerides Reference Interval Normal <150 mg/dL Borderline high 150 - 199 mg/dL High 200 - 499 mg/dL Very High > or = 500 mg/dL WBC (Bld) [#/Vol] 5.7 10*3/uL 4.4-11.0 [facility] Work Phone: Blood erythrocytes count (nu mber/volume)on 05-21-2022 RBC (Bld) [#/Vol] 3.57 10*6/uL 4.2-5.[address] [facility] Work Phone: Blood hemoglobin measurement (mass/volume)on 05-21-2022 Hemoglobin (Bld) [Mass/Vol] 10.8 g/dL 12.0-15.0 [facility] Work Phone: Blood lymphocytes/100 leukoc yteson 05-21-2022 Lymphocytes/100 WBC (Bld) 51.4 % 19-41 [facility] Work Phone: Blood monocytes/100 leukocyt eson 05-21-2022 Monocytes/100 WBC (Bld) 5.5 % 0-10 [facility] Work Phone: Blood platelet mean volumeon 05-21-2022 Platelet mean volume (Bld) [Entitic vol] 9.2 fL 6.2-12.0 [facility] Work Phone: Determination of erythrocyte mean corpuscular volume (MCV)on 05-21-2022 MCV (RBC) [Entitic vol] 92.4 fL 81-99 [facility] Work Phone: Glucose Glucometer (BldC) [M ass/Vol]on 05-21-2022 Glucose [Mass/Vol] 164 mg/dL 74-106 [facility] Work Phone: Comment on above: MANAGEMENT OF PATIEN T CARE PER NURSING PROTOCOL Hematocrit Auto (Bld) [Volum e fraction]on 05-21-2022 Hematocrit (Bld) [Volume fraction] 33.0 % 37-47 [facility] Work Phone: Laboratory - Chemistry and C hemistry - challengeon 05-21-2022 ALP [Catalytic activity/Vol] 76 U/L 45-117 [facility] Work Phone: ALT [Catalytic activity/Vol] 83 U/L 13-56 [facility] Work Phone: CO2 [Moles/Vol] 31.0 mmol/L 21.0-32.0 [facility] Work Phone: Free T4 [Mass/Vol] 0.14 ng/dL 0.76-1.46 [facility] Work Phone: Globulin (S) [Mass/Vol] 3.8 g/dL 2.2-4.2 [facility] Work Phone: Urea nitrogen/Creatinine [Mass ratio] 15.0 mg/mg 10-20 [facility] Work Phone: Laboratory - Hematology and Cell countson 05-21-2022 Erythrocyte distribution width (RBC) [Entitic vol] 48.4 fL 35.1-43.9 [facility] Work Phone: Erythrocyte distribution width (RBC) [Ratio] 14.2 % 11.6-14.6 [facility] Work Phone: Immature granulocytes/100 WBC (Bld) 0.400 % 0.0-0.9 [facility] Work Phone: Comment on above: IG% - Immature Granu locytes (promyelocytes, myelocytes and metamyelocytes) > 1% indicates that a LEFT SHIFT is Present. MCH (RBC) [Entitic mass] 30.3 pg 27.0-32.0 [facility] Work Phone: Nucleated RBC/100 WBC (Bld) [Ratio] 0 % 0-5 [facility] Work Phone: MCHC Auto (RBC) [Mass/Vol]on 05-21-2022 MCHC (RBC) [Mass/Vol] 32.7 g/dL 32-36 [facility] Work Phone: No Panel Informationon 05-21 Estimated Creatinine Clearance Calc 36.71 ml/min [facility] Work Phone: Estimated GFR (MDRD) Amer 59 mL/min >60 [facility] Work Phone: Comment on above: GFR Calc Estimated GFR (MDRD) Non-Af Amer 49 mL/min >60 [facility] Work Phone: Comment on above: Non- GFR Calc Troponin I High Sensitivity 32 pg/mL 3.0-54.0 [facility] Work Phone: Comment on above: Please Note: New Carolann t Units and Gender Specific Reference Ranges. For more information see Policy Stat Procedure [place] High Sensitivity Troponin (TNIH) and attachments. Troponin I High Sensitivity 32 pg/mL 3.0-54.0 [facility] Work Phone: Comment on above: Please Note: New Carolann t Units and Gender Specific Reference Ranges. For more information see Policy Stat Procedure [place] High Sensitivity Troponin (TNIH) and attachments. Platelets bldon 05-21-2022 Platelets (Bld) [#/Vol] 240 10*3/uL 150-450 [facility] Work Phone: Serum or plasma albumin tai urement (mass/volume)on 05-21-2022 Albumin [Mass/Vol] 3.1 g/dL 3.2-5.0 [facility] Work Phone: Serum or plasma albumin/glob ulin mass ratioon 05-21-2022 Albumin/Globulin [Mass ratio] 0.8 {ratio} 0.9-2.4 [facility] Work Phone: Serum or plasma calcium tai urement (mass/volume)on 05-21-2022 Calcium [Mass/Vol] 8.6 mg/dL 8.5-10.1 [facility] Work Phone: Serum or plasma cholesterol in HDL measurement (mass/volume)on 05-21-2022 Cholesterol in HDL [Mass/Vol] 31 mg/dL >40 [facility] Work Phone: Comment on above: The drugs N-Acetylcy steine and Metamizole may falsely depress this assay. Reference Range HDL <40 mg/dL Low HDL Cholesterol HDL >or= 60 mg/dL High HDL Cholesterol Serum or plasma cholesterol in VLDL measurement (mass/volume)on 05-21-2022 Cholesterol in VLDL [Mass/Vol] 67 mg/dL 5-40 [facility] Work Phone: Serum or plasma creatinine m easurement (mass/volume)on 05-21-2022 Creatinine [Mass/Vol] 1.20 mg/dL 0.55-1.02 [facility] Work Phone: Comment on above: The validity of the calculated GFR & GFRAA in patients over 70 years has not been determined. Clinical correlation is essential. Serum or plasma low density lipoprotein (LDL) cholesterol measurement (mass/volume)on 05-21-2022 Cholesterol in LDL [Mass/Vol] 146 mg/dL 0-130 [facility] Work Phone: Serum or plasma urea nitroge n measurement (mass/volume)on 05-21-2022 Urea nitrogen [Mass/Vol] 18 mg/dL 7-18 [facility] Work Phone: Thin prep Papanicolaou smear with manual screeningon 05-21-2022 Thin prep Papanicolaou smear with manual screening 42 U/L 15-37 [facility] Work Phone: Thin prep Papanicolaou smear with manual screening 5 5-15 [facility] Work Phone: Absolute lymphocyte counton 05-20-2022 Lymphocytes Auto (Unsp spec) [#/Vol] 2.77 10*3/uL 0.83-4.51 [facility] Work Phone: Basophil percentageon 2021 Basophils/100 WBC (Bld) 0.9 % 0-1 [facility] Work Phone: Chloride [Moles/Vol] 99 mmol/L 98-107 [facility] Work Phone: Eosinophils/100 WBC (Bld) 2.0 % 0-5 [facility] Work Phone: Glucose [Mass/Vol] 322 mg/dL 74-106 [facility] Work Phone: Comment on above: Glucose result great er than or equal to 200 mg/dLsuggests DIABETES MELLITUS per A.D.A. criteria. Neutrophils (Bld) [#/Vol] 3.3 10*3/uL 2.0-7.7 [facility] Work Phone: Neutrophils/100 WBC (Bld) 49.7 % 47-70 [facility] Work Phone: Potassium [Moles/Vol] 4.3 mmol/L 3.5-5.1 [facility] Work Phone: Sodium [Moles/Vol] 135 mmol/L 136-145 [facility] Work Phone: WBC (Bld) [#/Vol] 6.6 10*3/uL 4.4-11.0 [facility] Phone: Blood erythrocytes count (nu mber/volume)on 05-20-2022 RBC (Bld) [#/Vol] 3.54 10*6/uL 4.2-5.[address] [facility] Work Phone: Blood hemoglobin measurement (mass/volume)on 05-20-2022 Hemoglobin (Bld) [Mass/Vol] 10.9 g/dL 12.0-15.0 [facility] Work Phone: Blood lymphocytes/100 leukoc yteson 05-20-2022 Lymphocytes/100 WBC (Bld) 42.3 % 19-41 [facility] Work Phone: Blood monocytes/100 leukocyt eson 05-20-2022 Monocytes/100 WBC (Bld) 4.6 % 0-10 [facility] Work Phone: Blood platelet mean volumeon 05-20-2022 Platelet mean volume (Bld) [Entitic vol] 9.5 fL 6.2-12.0 [facility] Work Phone: Determination of erythrocyte mean corpuscular volume (MCV)on 05-20-2022 MCV (RBC) [Entitic vol] 91.5 fL 81-99 [facility] Work Phone: Hematocrit Auto (Bld) [Volum e fraction]on 05-20-2022 Hematocrit (Bld) [Volume fraction] 32.4 % 37-47 [facility] Work Phone: INR in Blood by Coagulation assayon 05-20-2022 INR Coag (Bld) [Relative time] 1.0 {INR} [facility] Work Phone: Laboratory - Chemistry and C hemistry - challengeon 05-20-2022 CO2 [Moles/Vol] 30.0 mmol/L 21.0-32.0 [facility] Work Phone: Magnesium [Mass/Vol] 2.1 mg/dL 1.6-2.6 [facility] Work Phone: Urea nitrogen/Creatinine [Mass ratio] 15.4 mg/mg 10-20 [facility] Work Phone: Laboratory - Coagulationon 0 05-20-2022 aPTT Coag (Bld) [Time] 29.0 s 24.1-36.2 [facility] Work Phone: PT Coag (PPP) [Time] 13.1 s 11.7-14.9 [facility] Work Phone: Laboratory - Drug toxicology on 05-20-2022 Amphetamines Ql (U) Negative <1000 ng/mL [facility] Work Phone: Benzodiazepines Ql (U) Positive < 200 ng/mL [facility] Work Phone: Cannabinoids Screen Ql (U) Negative < 50 ng/mL [facility] Work Phone: Cocaine Ql (U) Negative < 300 ng/mL [facility] Work Phone: Opiates Ql (U) Negative < 300 ng/mL [facility] Work Phone: Laboratory - Hematology and Cell countson 05-20-2022 Erythrocyte distribution width (RBC) [Entitic vol] 47.6 fL 35.1-43.9 [facility] Work Phone: Erythrocyte distribution width (RBC) [Ratio] 14.3 % 11.6-14.6 [facility] Work Phone: Immature granulocytes/100 WBC (Bld) 0.500 % 0.0-0.9 [facility] Work Phone: Comment on above: IG% - Immature Granu locytes (promyelocytes, myelocytes and metamyelocytes) > 1% indicates that a LEFT SHIFT is Present. MCH (RBC) [Entitic mass] 30.8 pg 27.0-32.0 [facility] Work Phone: Nucleated RBC/100 WBC (Bld) [Ratio] 0 % 0-5 [facility] Work Phone: MCHC Auto (RBC) [Mass/Vol]on 05-20-2022 MCHC (RBC) [Mass/Vol] 33.6 g/dL 32-36 [facility] Work Phone: No Panel Informationon 05-20 MDMA (Ecstasy) Screen Negative < 500 ng/mL [facility] Work Phone: Urine Barbiturates Screen Negative < 200 ng/mL [facility] Work Phone: Urine Drug Screen Comment [facility] Work Phone: Comment on above: CONFIRMATORY TESTING [...] Urine Methadone Screen Negative < 300 ng/mL [facility] Work Phone: Estimated Creatinine Clearance Calc 35.81 ml/min [facility] Work Phone: Estimated GFR (MDRD) Amer 58 mL/min >60 [facility] Work Phone: Comment on above: GFR Calc Estimated GFR (MDRD) Non-Af Amer 48 mL/min >60 [facility] Work Phone: Comment on above: Non- GFR Calc Thyroid Stimulating Hormone (TSH) 109.00 uIU/mL 0.358-3.74 [facility] Work Phone: Platelets bldon 05-20-2022 Platelets (Bld) [#/Vol] 291 10*3/uL 150-450 [facility] Work Phone: Serum or plasma calcium tai urement (mass/volume)on 05-20-2022 Calcium [Mass/Vol] 9.2 mg/dL 8.5-10.1 [facility] Work Phone: Serum or plasma creatinine m easurement (mass/volume)on 05-20-2022 Creatinine [Mass/Vol] 1.23 mg/dL 0.55-1.02 [facility] Work Phone: Comment on above: The validity of the calculated GFR & GFRAA in patients over 70 years has not been determined. Clinical correlation is essential. Serum or plasma urea nitroge n measurement (mass/volume)on 05-20-2022 Urea nitrogen [Mass/Vol] 19 mg/dL 7-18 [facility] Work Phone: Thin prep Papanicolaou smear with manual screeningon 05-20-2022 Thin prep Papanicolaou smear with manual screening 6 5-15 [facility] Work Phone: Urine phencyclidine (PCP) de tectionon 05-20-2022 Phencyclidine Ql (U) Negative < 25 ng/mL [facility] Work Phone: Basophil percentageon 2021 Chloride [Moles/Vol] 99 mmol/L 98-107 [facility] Work Phone: Glucose [Mass/Vol] 161 mg/dL 74-106 [facility] Work Phone: Comment on above: Fasting Glucose resu lt greater than or equal to 126 mg/dL suggests DIABETES MELLITUS per A.D.A. criteria. Potassium [Moles/Vol] 4.0 mmol/L 3.5-5.1 [facility] Work Phone: Sodium [Moles/Vol] 135 mmol/L 136-145 [facility] Work Phone: WBC (Bld) [#/Vol] 8.6 10*3/uL 4.4-11.0 [facility] Work Phone: Blood erythrocytes count (nu mber/volume)on 05-12-2022 RBC (Bld) [#/Vol] 3.83 10*6/uL 4.2-5.[address] [facility] Work Phone: Blood hemoglobin measurement (mass/volume)on 05-12-2022 Hemoglobin (Bld) [Mass/Vol] 11.7 g/dL 12.0-15.0 [facility] Work Phone: Blood platelet mean volumeon 05-12-2022 Platelet mean volume (Bld) [Entitic vol] 9.0 fL 6.2-12.0 [facility] Work Phone: Determination of erythrocyte mean corpuscular volume (MCV)on 05-12-2022 MCV (RBC) [Entitic vol] 92.7 fL 81-99 [facility] Work Phone: Hematocrit Auto (Bld) [Volum e fraction]on 05-12-2022 Hematocrit (Bld) [Volume fraction] 35.5 % 37-47 [facility] Work Phone: Laboratory - Chemistry and C hemistry - challengeon 05-12-2022 CO2 [Moles/Vol] 30.0 mmol/L 21.0-32.0 [facility] Work Phone: Urea nitrogen/Creatinine [Mass ratio] 21.8 mg/mg 10-20 [facility] Work Phone: Laboratory - Hematology and Cell countson 05-12-2022 Erythrocyte distribution width (RBC) [Entitic vol] 48.8 fL 35.1-43.9 [facility] Work Phone: Erythrocyte distribution width (RBC) [Ratio] 14.5 % 11.6-14.6 [facility] Work Phone: MCH (RBC) [Entitic mass] 30.5 pg 27.0-32.0 [facility] Work Phone: MCHC Auto (RBC) [Mass/Vol]on 05-12-2022 MCHC (RBC) [Mass/Vol] 33.0 g/dL 32-36 [facility] Work Phone: No Panel Informationon 05-12 Estimated GFR (MDRD) Amer 60 mL/min >60 [facility] Work Phone: Comment on above: GFR Calc Estimated GFR (MDRD) Non-Af Amer 49 mL/min >60 [facility] Work Phone: Comment on above: Non- GFR Calc Platelets bldon 05-12-2022 Platelets (Bld) [#/Vol] 287 10*3/uL 150-450 [facility] Work Phone: Serum or plasma calcium tai urement (mass/volume)on 05-12-2022 Calcium [Mass/Vol] 9.7 mg/dL 8.5-10.1 [facility] Work Phone: Serum or plasma creatinine m easurement (mass/volume)on 05-12-2022 Creatinine [Mass/Vol] 1.19 mg/dL 0.55-1.02 [facility] Work Phone: Comment on above: The validity of the calculated GFR & GFRAA in patients over 70 years has not been determined. Clinical correlation is essential. Serum or plasma urea nitroge n measurement (mass/volume)on 05-12-2022 Urea nitrogen [Mass/Vol] 26 mg/dL 7-18 [facility] Work Phone: Thin prep Papanicolaou smear with manual screeningon 05-12-2022 Thin prep Papanicolaou smear with manual screening 6 5-15 [facility] Work Phone: Absolute lymphocyte counton 05-03-2022 Lymphocytes Auto (Unsp spec) [#/Vol] 2.67 10*3/uL 0.83-4.51 [facility] Work Phone: Basophil percentageon 2021 Basophils/100 WBC (Bld) 1.2 % 0-1 [facility] Work Phone: Chloride [Moles/Vol] 100 mmol/L 98-107 [facility] Work Phone: Eosinophils/100 WBC (Bld) 1.5 % 0-5 [facility] Work Phone: Glucose [Mass/Vol] 130 mg/dL 74-106 [facility] Work Phone: Comment on above: Fasting Glucose resu lt greater than or equal to 126 mg/dL suggests DIABETES MELLITUS per A.D.A. criteria. Neutrophils (Bld) [#/Vol] 2.7 10*3/uL 2.0-7.7 [facility] Work Phone: Neutrophils/100 WBC (Bld) 45.1 % 47-70 [facility] Work Phone: Potassium [Moles/Vol] 4.0 mmol/L 3.5-5.1 [facility] Work Phone: Sodium [Moles/Vol] 136 mmol/L 136-145 [facility] Work Phone: WBC (Bld) [#/Vol] 5.9 10*3/uL 4.4-11.0 [facility] Work Phone: Blood erythrocytes count (nu mber/volume)on 05-03-2022 RBC (Bld) [#/Vol] 3.46 10*6/uL 4.2-5.[address] [facility] Work Phone: [phone] Blood hemoglobin measurement (mass/volume)on 05-03-2022 Hemoglobin (Bld) [Mass/Vol] 10.6 g/dL 12.0-15.0 [facility] Work Phone: [phone] Blood lymphocytes/100 leukoc yteson 05-03-2022 Lymphocytes/100 WBC (Bld) 45.1 % 19-41 [facility] Work Phone: Blood monocytes/100 leukocyt eson 05-03-2022 Monocytes/100 WBC (Bld) 6.3 % 0-10 [facility] Work Phone: Blood platelet mean volumeon 05-03-2022 Platelet mean volume (Bld) [Entitic vol] 9.4 fL 6.2-12.0 [facility] Work Phone: Determination of erythrocyte mean corpuscular volume (MCV)on 05-03-2022 MCV (RBC) [Entitic vol] 91.3 fL 81-99 [facility] Work Phone: Hematocrit Auto (Bld) [Volum e fraction]on 05-03-2022 Hematocrit (Bld) [Volume fraction] 31.6 % 37-47 [facility] Work Phone: Laboratory - Chemistry and C hemistry - challengeon 05-03-2022 CO2 [Moles/Vol] 29.0 mmol/L 21.0-32.0 [facility] Work Phone: Urea nitrogen/Creatinine [Mass ratio] 19.3 mg/mg 10-20 [facility] Work Phone: Laboratory - Hematology and Cell countson 05-03-2022 Erythrocyte distribution width (RBC) [Entitic vol] 46.8 fL 35.1-43.9 [facility] Work Phone: Erythrocyte distribution width (RBC) [Ratio] 14.4 % 11.6-14.6 [facility] Work Phone: Immature granulocytes/100 WBC (Bld) 0.800 % 0.0-0.9 [facility] Work Phone: Comment on above: IG% - Immature Granu locytes (promyelocytes, myelocytes and metamyelocytes) > 1% indicates that a LEFT SHIFT is Present. MCH (RBC) [Entitic mass] 30.6 pg 27.0-32.0 [facility] Work Phone: Nucleated RBC/100 WBC (Bld) [Ratio] 0.3 % 0-5 [facility] [facility] Work Phone: MCHC Auto (RBC) [Mass/Vol]on 05-03-2022 MCHC (RBC) [Mass/Vol] 33.5 g/dL 32-36 [facility] Work Phone: No Panel Informationon 05-03 Troponin I High Sensitivity 57 pg/mL 3.0-54.0 [facility] Work Phone: Comment on above: Please Note: New Carolann t Units and Gender Specific Reference Ranges. For more information see Policy Stat Procedure [place] High Sensitivity Troponin (TNIH) and attachments. Estimated Creatinine Clearance Calc 37.01 ml/min [facility] Work Phone: Estimated GFR (MDRD) Amer 60 mL/min >60 [facility] Work Phone: Comment on above: GFR Calc Estimated GFR (MDRD) Non-Af Amer 49 mL/min >60 [facility] Work Phone: Comment on above: Non- GFR Calc Platelets bldon 05-03-2022 Platelets (Bld) [#/Vol] 267 10*3/uL 150-450 [facility] Work Phone: Serum or plasma calcium tai urement (mass/volume)on 05-03-2022 Calcium [Mass/Vol] 9.1 mg/dL 8.5-10.1 [facility] Work Phone: Serum or plasma creatinine m easurement (mass/volume)on 05-03-2022 Creatinine [Mass/Vol] 1.19 mg/dL 0.55-1.02 [facility] Work Phone: Comment on above: The validity of the calculated GFR & GFRAA in patients over 70 years has not been determined. Clinical correlation is essential. Serum or plasma urea nitroge n measurement (mass/volume)on 05-03-2022 Urea nitrogen [Mass/Vol] 23 mg/dL 7-18 [facility] Work Phone: Thin prep Papanicolaou smear with manual screeningon 05-03-2022 Thin prep Papanicolaou smear with manual screening 7 5-15 [facility] Work Phone: Basophil percentageon 2021 Chloride [Moles/Vol] 92 mmol/L 98-107 [facility] Work Phone: Glucose [Mass/Vol] 66 mg/dL 74-106 [facility] Work Phone: Potassium [Moles/Vol] 4.3 mmol/L 3.5-5.1 [facility] Work Phone: Sodium [Moles/Vol] 131 mmol/L 136-145 [facility] Work Phone: WBC (Bld) [#/Vol] 6.1 10*3/uL 4.4-11.0 [facility] Work Phone: Blood erythrocytes count (nu mber/volume)on 04-28-2022 RBC (Bld) [#/Vol] 3.66 10*6/uL 4.2-5.4 [facility] Blood hemoglobin measurement (mass/volume)on 04-28-2022 Hemoglobin (Bld) [Mass/Vol] 11.1 g/dL 12.0-15.0 [facility] Work Phone: Blood platelet mean volumeon 04-28-2022 Platelet mean volume (Bld) [Entitic vol] 9.5 fL 6.2-12.0 [facility] Work Phone: Determination of erythrocyte mean corpuscular volume (MCV)on 04-28-2022 MCV (RBC) [Entitic vol] 90.7 fL 81-99 [facility] Work Phone: Hematocrit Auto (Bld) [Volum e fraction]on 04-28-2022 Hematocrit (Bld) [Volume fraction] 33.2 % 37-47 [facility] Work Phone: Laboratory - Chemistry and C hemistry - challengeon 04-28-2022 CO2 [Moles/Vol] 31.0 mmol/L 21.0-32.0 [facility] Work Phone: Urea nitrogen/Creatinine [Mass ratio] 21.4 mg/mg 10-20 [facility] Work Phone: Laboratory - Hematology and Cell countson 04-28-2022 Erythrocyte distribution width (RBC) [Entitic vol] 46.7 fL 35.1-43.9 [facility] Work Phone: Erythrocyte distribution width (RBC) [Ratio] 14.2 % 11.6-14.6 [facility] Work Phone: MCH (RBC) [Entitic mass] 30.3 pg 27.0-32.0 [facility] Work Phone: MCHC Auto (RBC) [Mass/Vol]on 04-28-2022 MCHC (RBC) [Mass/Vol] 33.4 g/dL 32-36 [facility] Work Phone: No Panel Informationon 04-28 Estimated GFR (MDRD) Amer 71 mL/min >60 [facility] Work Phone: Comment on above: GFR Calc Estimated GFR (MDRD) Non-Af Amer 58 mL/min >60 [facility] Work Phone: Comment on above: Non- GFR Calc Platelets bldon 04-28-2022 Platelets (Bld) [#/Vol] 262 10*3/uL 150-450 [facility] Work Phone: Serum or plasma calcium tai urement (mass/volume)on 04-28-2022 Calcium [Mass/Vol] 9.4 mg/dL 8.5-10.1 [facility] Work Phone: Serum or plasma creatinine m easurement (mass/volume)on 04-28-2022 Creatinine [Mass/Vol] 1.03 mg/dL 0.55-1.02 [facility] Work Phone: Comment on above: The validity of the calculated GFR & GFRAA in patients over 70 years has not been determined. Clinical correlation is essential. Serum or plasma urea nitroge n measurement (mass/volume)on 04-28-2022 Urea nitrogen [Mass/Vol] 22 mg/dL 7-18 [facility] Work Phone: Thin prep Papanicolaou smear with manual screeningon 04-28-2022 Thin prep Papanicolaou smear with manual screening 8 5-15 [facility] Work Phone: Basophil percentageon 2021 Bilirubin [Mass/Vol] 0.20 mg/dL 0.20-1.00 [facility] Work Phone: Comment on above: For patients on eltr ombopag therapy, use of Dimension [place] TBIL is not recommended. Cholesterol [Mass/Vol] 254 mg/dL <200 [facility] Work Phone: Comment on above: <200 mg/dL Desirable 200-240 mg/dL Borderline >240 mg/dL High Risk Protein [Mass/Vol] 7.4 g/dL 6.4-8.2 [facility] Work Phone: Triglyceride [Mass/Vol] 250 mg/dL <199 [facility] Work Phone: Comment on above: The drugs N-Acetylcy steine and Metamizole may falsely depress this assay.Serum Triglycerides Reference Interval Normal <150 mg/dL Borderline high 150 - 199 mg/dL High 200 - 499 mg/dL Very High > or = 500 mg/dL Direct bilirubinon 2 Bilirubin.direct [Mass/Vol] 0.08 mg/dL 0.00-0.30 [facility] Work Phone: Glucose Glucometer (BldC) [M ass/Vol]on 04-25-2022 Glucose [Mass/Vol] 172 mg/dL 74-106 [facility] Work Phone: Comment on above: MANAGEMENT OF PATIEN T CARE PER NURSING PROTOCOL Glucose [Mass/Vol] 135 mg/dL 74-106 [facility] Work Phone: Comment on above: MANAGEMENT OF PATIEN T CARE PER NURSING PROTOCOL Laboratory - Chemistry and C hemistry - challengeon 04-25-2022 ALP [Catalytic activity/Vol] 123 U/L 45-117 [facility] Work Phone: ALT [Catalytic activity/Vol] 157 U/L 13-56 [facility] Work Phone: Globulin (S) [Mass/Vol] 4.1 g/dL 2.2-4.2 [facility] Work Phone: Serum or plasma albumin tai urement (mass/volume)on 04-25-2022 Albumin [Mass/Vol] 3.3 g/dL 3.2-5.0 [facility] Work Phone: Serum or plasma cholesterol in HDL measurement (mass/volume)on 04-25-2022 Cholesterol in HDL [Mass/Vol] 41 mg/dL >40 [facility] Work Phone: Comment on above: The drugs N-Acetylcy steine and Metamizole may falsely depress this assay. Reference Range HDL <40 mg/dL Low HDL Cholesterol HDL >or= 60 mg/dL High HDL Cholesterol Serum or plasma cholesterol in VLDL measurement (mass/volume)on 04-25-2022 Cholesterol in VLDL [Mass/Vol] 50 mg/dL 5-40 [facility] Work Phone: Serum or plasma low density lipoprotein (LDL) cholesterol measurement (mass/volume)on 04-25-2022 Cholesterol in LDL [Mass/Vol] 163 mg/dL 0-130 [facility] Work Phone: Thin prep Papanicolaou smear with manual screeningon 04-25-2022 Thin prep Papanicolaou smear with manual screening 124 U/L 15-37 [facility] Work Phone: Whole blood hemoglobin A1c/t otal hemoglobin ratio (mass fraction)on 04-25-2022 HbA1c (Bld) [Mass fraction] 9.4 % 3.8-5.6 [facility] Work Phone: Comment on above: Normal < 5.7 % Predi abetic 5.7 - 6.4 % Diabetic >or= 6.5 % Please note range changes. Absolute lymphocyte counton 04-24-2022 Lymphocytes Auto (Unsp spec) [#/Vol] 2.29 10*3/uL 0.83-4.51 [facility] Work Phone: Basophil percentageon 2021 Basophils/100 WBC (Bld) 1.1 % 0-1 [facility] Work Phone: Chloride [Moles/Vol] 101 mmol/L 98-107 [facility]: Eosinophils/100 WBC (Bld) 2.2 % 0-5 [facility] Work Phone: Glucose [Mass/Vol] 180 mg/dL 74-106 [facility] Work Phone: Comment on above: Fasting Glucose resu lt greater than or equal to 126 mg/dL suggests DIABETES MELLITUS per A.D.A. criteria. Neutrophils (Bld) [#/Vol] 2.6 10*3/uL 2.0-7.7 [facility] Work Phone: [phone] Neutrophils/100 WBC (Bld) 49.1 % 47-70 [facility] Work Phone: Potassium [Moles/Vol] 3.9 mmol/L 3.5-5.1 [facility] Work Phone: Sodium [Moles/Vol] 138 mmol/L 136-145 [facility] Work Phone: WBC (Bld) [#/Vol] 5.4 10*3/uL 4.4-11.0 [facility] Work Phone: Blood erythrocytes count (nu mber/volume)on 04-24-2022 RBC (Bld) [#/Vol] 3.73 10*6/uL 4.2-5.[address] [facility] Work Phone: Blood hemoglobin measurement (mass/volume)on 04-24-2022 Hemoglobin (Bld) [Mass/Vol] 11.4 g/dL 12.0-15.0 [facility] Work Phone: Blood lymphocytes/100 leukoc yteson 04-24-2022 Lymphocytes/100 WBC (Bld) 42.6 % 19-41 [facility] Work Phone: Blood monocytes/100 leukocyt eson 04-24-2022 Monocytes/100 WBC (Bld) 3.9 % 0-10 [facility] Work Phone: Blood platelet mean volumeon 04-24-2022 Platelet mean volume (Bld) [Entitic vol] 9.5 fL 6.2-12.0 [facility] Work Phone: Determination of erythrocyte mean corpuscular volume (MCV)on 04-24-2022 MCV (RBC) [Entitic vol] 91.4 fL 81-99 [facility] Work Phone: Hematocrit Auto (Bld) [Volum e fraction]on 04-24-2022 Hematocrit (Bld) [Volume fraction] 34.1 % 37-47 [facility] Work Phone: Laboratory - Chemistry and C hemistry - challengeon 04-24-2022 CO2 [Moles/Vol] 28.0 mmol/L 21.0-32.0 [facility] Work Phone: Urea nitrogen/Creatinine [Mass ratio] 15.7 mg/mg 10-20 [facility] Work Phone: Laboratory - Hematology and Cell countson 04-24-2022 Erythrocyte distribution width (RBC) [Entitic vol] 46.6 fL 35.1-43.9 [facility] Work Phone: Erythrocyte distribution width (RBC) [Ratio] 14.0 % 11.6-14.6 [facility] Work Phone: Immature granulocytes/100 WBC (Bld) 1.100 % 0.0-0.9 [facility] Work Phone: Comment on above: IG% - Immature Granu locytes (promyelocytes, myelocytes and metamyelocytes) > 1% indicates that a LEFT SHIFT is Present. MCH (RBC) [Entitic mass] 30.6 pg 27.0-32.0 [facility] Work Phone: Nucleated RBC/100 WBC (Bld) [Ratio] 0 % 0-5 [facility] Work Phone: MCHC Auto (RBC) [Mass/Vol]on 04-24-2022 MCHC (RBC) [Mass/Vol] 33.4 g/dL 32-36 [facility]: No Panel Informationon 04-24 Troponin I High Sensitivity 57 pg/mL 3.0-54.0 [facility] Work Phone: Comment on above: Please Note: New Carolann t Units and Gender Specific Reference Ranges. For more information see Policy Stat Procedure [place] High Sensitivity Troponin (TNIH) and attachments. D-Dimer Quantitative (PE/DVT) 0.32 FEU/ug/m 0.27-0.49 [facility] Work Phone: Comment on above: NORMAL D-Dimer level (<0.50) indicates no DVT or PE. Estimated Creatinine Clearance Calc 40.78 ml/min [facility] Work Phone: Estimated GFR (MDRD) Amer 67 mL/min >60 [facility] Work Phone: Comment on above: GFR Calc Estimated GFR (MDRD) Non-Af Amer 55 mL/min >60 [facility] Work Phone: Comment on above: Non- GFR Calc Platelets bldon 04-24-2022 Platelets (Bld) [#/Vol] 254 10*3/uL 150-450 [facility] Work Phone: Serum or plasma calcium tai urement (mass/volume)on 04-24-2022 Calcium [Mass/Vol] 9.3 mg/dL 8.5-10.1 [facility] Work Phone: Serum or plasma creatinine m easurement (mass/volume)on 04-24-2022 Creatinine [Mass/Vol] 1.08 mg/dL 0.55-1.02 [facility] Work Phone: Comment on above: The validity of the calculated GFR & GFRAA in patients over 70 years has not been determined. Clinical correlation is essential. Serum or plasma urea nitroge n measurement (mass/volume)on 04-24-2022 Urea nitrogen [Mass/Vol] 17 mg/dL 7-18 [facility] Work Phone: Thin prep Papanicolaou smear with manual screeningon 04-24-2022 Thin prep Papanicolaou smear with manual screening 9 5-15 [facility] Work Phone: Absolute lymphocyte counton 04-17-2022 Lymphocytes Auto (Unsp spec) [#/Vol] 2.66 10*3/uL 0.83-4.51 [facility] Work Phone: Basophil percentageon 2021 Basophils/100 WBC (Bld) 1.1 % 0-1 [facility] Work Phone: Chloride [Moles/Vol] 100 mmol/L 98-107 [facility] Work Phone: Eosinophils/100 WBC (Bld) 3.0 % 0-5 [facility] Work Phone: Glucose [Mass/Vol] 86 mg/dL 74-106 [facility] Work Phone: Neutrophils (Bld) [#/Vol] 2.1 10*3/uL 2.0-7.7 [facility] Work Phone: Neutrophils/100 WBC (Bld) 39.4 % 47-70 [facility] Work Phone: Potassium [Moles/Vol] 3.8 mmol/L 3.5-5.1 [facility] Work Phone: Sodium [Moles/Vol] 136 mmol/L 136-145 [facility] Work Phone: WBC (Bld) [#/Vol] 5.4 10*3/uL 4.4-11.0 [facility] Work Phone: [phone] Blood erythrocytes count (nu mber/volume)on 04-17-2022 RBC (Bld) [#/Vol] 3.75 10*6/uL 4.2-5.4 [facility]: Blood hemoglobin measurement (mass/volume)on 04-17-2022 Hemoglobin (Bld) [Mass/Vol] 11.5 g/dL 12.0-15.0 [facility] Work Phone: Blood lymphocytes/100 leukoc yteson 04-17-2022 Lymphocytes/100 WBC (Bld) 49.4 % 19-41 [facility] Work Phone: Blood monocytes/100 leukocyt eson 04-17-2022 Monocytes/100 WBC (Bld) 5.6 % 0-10 [facility] Work Phone: Blood platelet mean volumeon 04-17-2022 Platelet mean volume (Bld) [Entitic vol] 9.3 fL 6.2-12.0 [facility] Work Phone: Determination of erythrocyte mean corpuscular volume (MCV)on 04-17-2022 MCV (RBC) [Entitic vol] 91.7 fL 81-99 [facility] Work Phone: Hematocrit Auto (Bld) [Volum e fraction]on 04-17-2022 Hematocrit (Bld) [Volume fraction] 34.4 % 37-47 [facility] Work Phone: Laboratory - Chemistry and C hemistry - challengeon 04-17-2022 CO2 [Moles/Vol] 28.0 mmol/L 21.0-32.0 [facility] Work Phone: Urea nitrogen/Creatinine [Mass ratio] 14.8 mg/mg 10-20 [facility] Work Phone: Laboratory - Hematology and Cell countson 04-17-2022 Erythrocyte distribution width (RBC) [Entitic vol] 46.6 fL 35.1-43.9 [facility] Work Phone: Erythrocyte distribution width (RBC) [Ratio] 13.9 % 11.6-14.6 [facility] Work Phone: Immature granulocytes/100 WBC (Bld) 1.500 % 0.0-0.9 [facility] Work Phone: Comment on above: IG% - Immature Granu locytes (promyelocytes, myelocytes and metamyelocytes) > 1% indicates that a LEFT SHIFT is Present. MCH (RBC) [Entitic mass] 30.7 pg 27.0-32.0 [facility] Work Phone: Nucleated RBC/100 WBC (Bld) [Ratio] 0 % 0-5 [facility] Work Phone: MCHC Auto (RBC) [Mass/Vol]on 04-17-2022 MCHC (RBC) [Mass/Vol] 33.4 g/dL 32-36 [facility] Work [facility]: No Panel Informationon 04-17 Estimated GFR (MDRD) Amer 55 mL/min >60 [facility] Work Phone: Comment on above: GFR Calc Estimated GFR (MDRD) Non-Af Amer 45 mL/min >60 [facility] Work Phone: Comment on above: Non- GFR Calc Platelets bldon 04-17-2022 Platelets (Bld) [#/Vol] 244 10*3/uL 150-450 [facility] Work Phone: Serum or plasma calcium tai urement (mass/volume)on 04-17-2022 Calcium [Mass/Vol] 9.1 mg/dL 8.5-10.1 [facility] Work Phone: Serum or plasma creatinine m easurement (mass/volume)on 04-17-2022 Creatinine [Mass/Vol] 1.28 mg/dL 0.55-1.02 [facility] Work Phone: Comment on above: The validity of the calculated GFR & GFRAA in patients over 70 years has not been determined. Clinical correlation is essential. Serum or plasma urea nitroge n measurement (mass/volume)on 04-17-2022 Urea nitrogen [Mass/Vol] 19 mg/dL 7-18 [facility] Work Phone: Thin prep Papanicolaou smear with manual screeningon 04-17-2022 Thin prep Papanicolaou smear with manual screening 8 5-15 [facility] Work Phone: Basophil percentageon 2021 Chloride [Moles/Vol] 99 mmol/L 98-107 [facility] Work Phone: Glucose [Mass/Vol] 59 mg/dL 74-106 [facility] Work Phone: Potassium [Moles/Vol] 4.0 mmol/L 3.5-5.1 [facility] Work Phone: Sodium [Moles/Vol] 135 mmol/L 136-145 [facility] Work Phone: WBC (Bld) [#/Vol] 5.8 10*3/uL 4.4-11.0 [facility] Work Phone: Blood erythrocytes count (nu mber/volume)on 04-13-2022 RBC (Bld) [#/Vol] 3.84 10*6/uL 4.2-5.4 [facility]: Blood hemoglobin measurement (mass/volume)on 04-13-2022 Hemoglobin (Bld) [Mass/Vol] 11.6 g/dL 12.0-15.0 [facility] Work Phone: Blood platelet mean volumeon 04-13-2022 Platelet mean volume (Bld) [Entitic vol] 9.6 fL 6.2-12.0 [facility] Work Phone: Determination of erythrocyte mean corpuscular volume (MCV)on 04-13-2022 MCV (RBC) [Entitic vol] 93.2 fL 81-99 [facility] Work Phone: Hematocrit Auto (Bld) [Volum e fraction]on 04-13-2022 Hematocrit (Bld) [Volume fraction] 35.8 % 37-47 [facility] Work Phone: Laboratory - Chemistry and C hemistry - challengeon 04-13-2022 CO2 [Moles/Vol] 28.0 mmol/L 21.0-32.0 [facility] Work Phone: Urea nitrogen/Creatinine [Mass ratio] 13.2 mg/mg 10-20 [facility] Work Phone: Laboratory - Hematology and Cell countson 04-13-2022 Erythrocyte distribution width (RBC) [Entitic vol] 47.1 fL 35.1-43.9 [facility] Work Phone: Erythrocyte distribution width (RBC) [Ratio] 13.9 % 11.6-14.6 [facility] Work Phone: MCH (RBC) [Entitic mass] 30.2 pg 27.0-32.0 [facility] Work Phone: MCHC Auto (RBC) [Mass/Vol]on 04-13-2022 MCHC (RBC) [Mass/Vol] 32.4 g/dL 32-36 [facility] Work Phone: No Panel Informationon 04-13 Estimated GFR (MDRD) Amer 51 mL/min >60 [facility] Work Phone: Comment on above: GFR Calc Estimated GFR (MDRD) Non-Af Amer 42 mL/min >60 [facility] Work Phone: Comment on above: Non- GFR Calc Platelets bldon 04-13-2022 Platelets (Bld) [#/Vol] 284 10*3/uL 150-450 [facility] Work Phone: Serum or plasma calcium tai urement (mass/volume)on 04-13-2022 Calcium [Mass/Vol] 9.3 mg/dL 8.5-10.1 [facility] Work Phone: Serum or plasma creatinine m easurement (mass/volume)on 04-13-2022 Creatinine [Mass/Vol] 1.36 mg/dL 0.55-1.02 [facility] Work Phone: Comment on above: The validity of the calculated GFR & GFRAA in patients over 70 years has not been determined. Clinical correlation is essential. Serum or plasma urea nitroge n measurement (mass/volume)on 04-13-2022 Urea nitrogen [Mass/Vol] 18 mg/dL 7-18 [facility] Work Phone: Thin prep Papanicolaou smear with manual screeningon 04-13-2022 Thin prep Papanicolaou smear with manual screening 8 5-15 [facility] Work Phone: Basophil percentageon 2021 Chloride [Moles/Vol] 100 mmol/L 98-107 [facility] Work Phone: Glucose [Mass/Vol] 74 mg/dL 74-106 [facility] Work Phone: Potassium [Moles/Vol] 3.8 mmol/L 3.5-5.1 [facility] Work [facility]: Sodium [Moles/Vol] 134 mmol/L 136-145 [facility] Work Phone: WBC (Bld) [#/Vol] 6.9 10*3/uL 4.4-11.0 [facility] Work Phone: Blood erythrocytes count (nu mber/volume)on 04-06-2022 RBC (Bld) [#/Vol] 3.80 10*6/uL 4.2-5.4 [facility]: Blood hemoglobin measurement (mass/volume)on 04-06-2022 Hemoglobin (Bld) [Mass/Vol] 11.6 g/dL 12.0-15.0 [facility] Work Phone: Blood platelet mean volumeon 04-06-2022 Platelet mean volume (Bld) [Entitic vol] 9.2 fL 6.2-12.0 [facility] Work Phone: Determination of erythrocyte mean corpuscular volume (MCV)on 04-06-2022 MCV (RBC) [Entitic vol] 90.8 fL 81-99 [facility] Work Phone: Hematocrit Auto (Bld) [Volum e fraction]on 04-06-2022 Hematocrit (Bld) [Volume fraction] 34.5 % 37-47 [facility] Work Phone: Laboratory - Chemistry and C hemistry - challengeon 04-06-2022 CO2 [Moles/Vol] 27.0 mmol/L 21.0-32.0 [facility] Work Phone: Urea nitrogen/Creatinine [Mass ratio] 14.3 mg/mg 10-20 [facility] Work Phone: Laboratory - Hematology and Cell countson 04-06-2022 Erythrocyte distribution width (RBC) [Entitic vol] 46.6 fL 35.1-43.9 [facility] Work Phone: Erythrocyte distribution width (RBC) [Ratio] 13.9 % 11.6-14.6 [facility] Work Phone: MCH (RBC) [Entitic mass] 30.5 pg 27.0-32.0 [facility] Work Phone: MCHC Auto (RBC) [Mass/Vol]on 04-06-2022 MCHC (RBC) [Mass/Vol] 33.6 g/dL 32-36 [facility] Work Phone: No Panel Informationon 04-06 Estimated GFR (MDRD) Amer 64 mL/min >60 [facility] Work Phone: Comment on above: GFR Calc Estimated GFR (MDRD) Non-Af Amer 53 mL/min >60 [facility] Work Phone: Comment on above: Non- GFR Calc Platelets bldon 04-06-2022 Platelets (Bld) [#/Vol] 309 10*3/uL 150-450 [facility] Work Phone: Serum or plasma calcium tai urement (mass/volume)on 04-06-2022 Calcium [Mass/Vol] 9.3 mg/dL 8.5-10.1 [facility] Work Phone: Serum or plasma creatinine m easurement (mass/volume)on 04-06-2022 Creatinine [Mass/Vol] 1.12 mg/dL 0.55-1.02 [facility] Work Phone: Comment on above: The validity of the calculated GFR & GFRAA in patients over 70 years has not been determined. Clinical correlation is essential. Serum or plasma urea nitroge n measurement (mass/volume)on 04-06-2022 Urea nitrogen [Mass/Vol] 16 mg/dL 7-18 [facility] Work Phone: Thin prep Papanicolaou smear with manual screeningon 04-06-2022 Thin prep Papanicolaou smear with manual screening 7 5-15 [facility] Work Phone: Glucose Glucometer (BldC) [M ass/Vol]on 03-30-2022 Glucose [Mass/Vol] 140 mg/dL 74-106 [facility] Work Phone: Comment on above: MANAGEMENT OF PATIEN T CARE PER NURSING PROTOCOL Basophil percentageon 2021 Chloride [Moles/Vol] 97 mmol/L 98-107 [facility] Work Phone: Glucose [Mass/Vol] 78 mg/dL 74-106 [facility] Work Phone: Potassium [Moles/Vol] 3.5 mmol/L 3.5-5.1 [facility] Work Phone: Sodium [Moles/Vol] 136 mmol/L 136-145 [facility] Work Phone: Laboratory - Chemistry and C hemistry - challengeon 03-29-2022 CO2 [Moles/Vol] 30.0 mmol/L 21.0-32.0 [facility] Work Phone: Urea nitrogen/Creatinine [Mass ratio] 16.3 mg/mg 10-20 [facility] Work Phone: No Panel Informationon 03-29 Estimated Creatinine Clearance Calc 42.35 ml/min [facility] Work Phone: Estimated GFR (MDRD) Amer 70 mL/min >60 [facility] Work Phone: Comment on above: GFR Calc Estimated GFR (MDRD) Non-Af Amer 58 mL/min >60 [facility] Work Phone: Comment on above: Non- GFR Calc Serum or plasma calcium tai urement (mass/volume)on 03-29-2022 Calcium [Mass/Vol] 9.5 mg/dL 8.5-10.1 [facility] Work Phone: Serum or plasma creatinine m easurement (mass/volume)on 03-29-2022 Creatinine [Mass/Vol] 1.04 mg/dL 0.55-1.02 [facility] Work Phone: Comment on above: The validity of the calculated GFR & GFRAA in patients over 70 years has not been determined. Clinical correlation is essential. Serum or plasma urea nitroge n measurement (mass/volume)on 03-29-2022 Urea nitrogen [Mass/Vol] 17 mg/dL 7-18 [facility] Work Phone: Thin prep Papanicolaou smear with manual screeningon 03-29-2022 Thin prep Papanicolaou smear with manual screening 9 5-15 [facility] Work Phone: Absolute lymphocyte counton 03-26-2022 Lymphocytes Auto (Unsp spec) [#/Vol] 2.14 10*3/uL 0.83-4.51 [facility] Work Phone: Basophil percentageon 2021 Basophils/100 WBC (Bld) 0.6 % 0-1 [facility] Work Phone: Eosinophils/100 WBC (Bld) 1.4 % 0-5 [facility] Work Phone: Neutrophils (Bld) [#/Vol] 4.2 10*3/uL 2.0-7.7 [facility] Work Phone: Neutrophils/100 WBC (Bld) 60.0 % 47-70 [facility] Work Phone: WBC (Bld) [#/Vol] 7.0 10*3/uL 4.4-11.0 [facility] Work Phone: [phone] Blood erythrocytes count (nu mber/volume)on 03-26-2022 RBC (Bld) [#/Vol] 3.48 10*6/uL 4.2-5.[address] [facility] Work Phone: Blood hemoglobin measurement (mass/volume)on 03-26-2022 Hemoglobin (Bld) [Mass/Vol] 10.6 g/dL 12.0-15.0 [facility] Work Phone: Blood lymphocytes/100 leukoc yteson 03-26-2022 Lymphocytes/100 WBC (Bld) 30.7 % 19-41 [facility] Work Phone: Blood monocytes/100 leukocyt eson 03-26-2022 Monocytes/100 WBC (Bld) 6.3 % 0-10 [facility] Work Phone: Blood platelet mean volumeon 03-26-2022 Platelet mean volume (Bld) [Entitic vol] 10.3 fL 6.2-12.0 [facility] Work Phone: Determination of erythrocyte mean corpuscular volume (MCV)on 03-26-2022 MCV (RBC) [Entitic vol] 92.8 fL 81-99 [facility] Work Phone: Hematocrit Auto (Bld) [Volum e fraction]on 03-26-2022 Hematocrit (Bld) [Volume fraction] 32.3 % 37-47 [facility] Work Phone: Laboratory - Hematology and Cell countson 03-26-2022 Erythrocyte distribution width (RBC) [Entitic vol] 45.7 fL 35.1-43.9 [facility]: Erythrocyte distribution width (RBC) [Ratio] 13.5 % 11.6-14.6 [facility] Work Phone: Immature granulocytes/100 WBC (Bld) 1.000 % 0.0-0.9 [facility] Work Phone: Comment on above: IG% - Immature Granu locytes (promyelocytes, myelocytes and metamyelocytes) > 1% indicates that a LEFT SHIFT is Present. MCH (RBC) [Entitic mass] 30.5 pg 27.0-32.0 [facility] Work Phone: Nucleated RBC/100 WBC (Bld) [Ratio] 0 % 0-5 [facility] Work Phone: MCHC Auto (RBC) [Mass/Vol]on 03-26-2022 MCHC (RBC) [Mass/Vol] 32.8 g/dL 32-36 [facility]: Platelets bldon 03-26-2022 Platelets (Bld) [#/Vol] 249 10*3/uL 150-450 [facility] Work Phone: Basophil percentageon 2021 Bilirubin [Mass/Vol] 0.40 mg/dL 0.20-1.00 [facility] Work Phone: Comment on above: For patients on eltr ombopag therapy, use of Dimension [place] TBIL is not recommended. Protein [Mass/Vol] 6.6 g/dL 6.4-8.2 [facility] Work Phone: Laboratory - Chemistry and C hemistry - challengeon 03-24-2022 ALP [Catalytic activity/Vol] 72 U/L 45-117 [facility] Work Phone: ALT [Catalytic activity/Vol] 56 U/L 13-56 [facility] Work Phone: Globulin (S) [Mass/Vol] 3.7 g/dL 2.2-4.2 [facility] Work Phone: Serum or plasma albumin tai urement (mass/volume)on 03-24-2022 Albumin [Mass/Vol] 2.9 g/dL 3.2-5.0 [facility] Work Phone: Serum or plasma albumin/glob ulin mass ratioon 03-24-2022 Albumin/Globulin [Mass ratio] 0.8 {ratio} 0.9-2.4 [facility] Work Phone: Thin prep Papanicolaou smear with manual screeningon 03-24-2022 Thin prep Papanicolaou smear with manual screening 62 U/L 15-37 [facility] Work Phone: Laboratory - Chemistry and C hemistry - challengeon 03-21-2022 Magnesium [Mass/Vol] 2.0 mg/dL 1.6-2.6 [facility] Work Phone: Absolute lymphocyte counton 03-20-2022 Lymphocytes Auto (Unsp spec) [#/Vol] 2.56 10*3/uL 0.83-4.51 [facility] Work Phone: Basophil percentageon 2021 Basophil percentage 25-50 SEEN /hpf 0-5 [facility] Work Phone: Basophils/100 WBC (Bld) 0.6 % 0-1 [facility] Work Phone: Chloride [Moles/Vol] 91 mmol/L 98-107 [facility] Work Phone: Eosinophils/100 WBC (Bld) 0.4 % 0-5 [facility] Work Phone: Glucose [Mass/Vol] 489 mg/dL 74-106 [facility] Work Phone: Comment on above: Glucose result great er than or equal to 200 mg/dLsuggests DIABETES MELLITUS per A.D.A. criteria. Neutrophils (Bld) [#/Vol] 3.8 10*3/uL 2.0-7.7 [facility] Work Phone: Neutrophils/100 WBC (Bld) 56.5 % 47-70 [facility] Work Phone: Potassium [Moles/Vol] 3.6 mmol/L 3.5-5.1 [facility] Work [facility]: Sodium [Moles/Vol] 128 mmol/L 136-145 [facility] Work Phone: WBC (Bld) [#/Vol] 6.8 10*3/uL 4.4-11.0 [facility] Work Phone: Bilirubin Test strip Ql (U)o n 03-20-2022 Bilirubin Ql (U) Negative Negative [facility] Work Phone: Blood erythrocytes count (nu mber/volume)on 03-20-2022 RBC (Bld) [#/Vol] 4.08 10*6/uL 4.2-5.[address] [facility] Work Phone: [phone] Blood hemoglobin measurement (mass/volume)on 03-20-2022 Hemoglobin (Bld) [Mass/Vol] 12.9 g/dL 12.0-15.0 [facility] Work Phone: Blood lymphocytes/100 leukoc yteson 03-20-2022 Lymphocytes/100 WBC (Bld) 37.6 % 19-41 [facility] Work Phone: Blood monocytes/100 leukocyt eson 03-20-2022 Monocytes/100 WBC (Bld) 4.3 % 0-10 [facility] Work Phone: Blood platelet mean volumeon 03-20-2022 Platelet mean volume (Bld) [Entitic vol] 9.7 fL 6.2-12.0 [facility] Work Phone: Determination of erythrocyte mean corpuscular volume (MCV)on 03-20-2022 MCV (RBC) [Entitic vol] 87.0 fL 81-99 [facility] Work Phone: Glucose Glucometer (BldC) [M ass/Vol]on 03-20-2022 Glucose [Mass/Vol] 420 mg/dL 74-106 [facility] Work Phone: Comment on above: MANAGEMENT OF PATIEN T CARE PER NURSING PROTOCOL Hematocrit Auto (Bld) [Volum e fraction]on 03-20-2022 Hematocrit (Bld) [Volume fraction] 35.5 % 37-47 [facility] Work Phone: Ketones Test strip Ql (U)on 03-20-2022 Ketones Ql (U) Negative Negative [facility] Work Phone: Laboratory - Chemistry and C hemistry - challengeon 03-20-2022 CO2 [Moles/Vol] 27.0 mmol/L 21.0-32.0 [facility] Work Phone: Urea nitrogen/Creatinine [Mass ratio] 11.0 mg/mg 10-20 [facility] Work Phone: Laboratory - Hematology and Cell countson 03-20-2022 Erythrocyte distribution width (RBC) [Entitic vol] 41.2 fL 35.1-43.9 [facility] Work Phone: Erythrocyte distribution width (RBC) [Ratio] 13.0 % 11.6-14.6 [facility] Work Phone: Immature granulocytes/100 WBC (Bld) 0.600 % 0.0-0.9 [facility] Work Phone: Comment on above: IG% - Immature Granu locytes (promyelocytes, myelocytes and metamyelocytes) > 1% indicates that a LEFT SHIFT is Present. MCH (RBC) [Entitic mass] 31.6 pg 27.0-32.0 [facility] Work Phone: Nucleated RBC/100 WBC (Bld) [Ratio] 0 % 0-5 [facility] Work Phone: MCHC Auto (RBC) [Mass/Vol]on 03-20-2022 MCHC (RBC) [Mass/Vol] 36.3 g/dL 32-36 [facility] Work Phone: Mucus LM Ql (Urine sed)on Mucus Ql (Urine sed) 0 SEEN /hpf [facility] Work Phone: Nitrite Test strip Ql (U)on 03-20-2022 Nitrite Ql (U) Negative Negative [facility] Work Phone: No Panel Informationon 03-20 Estimated Creatinine Clearance Calc 34.68 ml/min [facility] Work Phone: Estimated GFR (MDRD) Amer 56 mL/min >60 [facility] Work Phone: Comment on above: GFR Calc Estimated GFR (MDRD) Non-Af Amer 46 mL/min >60 [facility] Work Phone: Comment on above: Non- GFR Calc Platelets bldon 03-20-2022 Platelets (Bld) [#/Vol] 263 10*3/uL 150-450 [facility] Work Phone: Protein Test strip Ql (U)on 03-20-2022 Protein Ql (U) 30 mg/dl Negative [facility] Work Phone: Serum or plasma calcium tai urement (mass/volume)on 03-20-2022 Calcium [Mass/Vol] 9.1 mg/dL 8.5-10.1 [facility] Work Phone: Serum or plasma creatinine m easurement (mass/volume)on 03-20-2022 Creatinine [Mass/Vol] 1.27 mg/dL 0.55-1.02 [facility] Work Phone: Comment on above: The validity of the calculated GFR & GFRAA in patients over 70 years has not been determined. Clinical correlation is essential. Serum or plasma urea nitroge n measurement (mass/volume)on 03-20-2022 Urea nitrogen [Mass/Vol] 14 mg/dL 7-18 [facility] Work Phone: Squamous epithelial cells de tection in urine sediment by light microscopyon 03-20-2022 Epithelial cells.squamous LM Ql (Urine sed) 5-10 SEEN /hpf 5-10 [facility] Work Phone: Thin prep Papanicolaou smear with manual screeningon 03-20-2022 Thin prep Papanicolaou smear with manual screening 10 5-15 [facility] Work Phone: Urine blood detectionon 02-23 RBC Ql (U) 10 /ul Negative [facility] Work Phone: RBC Ql (U) 0 SEEN /hpf 0-5 [facility] Work Phone: Urine clarityon 03-20-2022 Clarity (U) Clear Clear [facility] Work Phone: Urine color determinationon 03-20-2022 Color (U) Yellow Yellow [facility] Work Phone: Urine glucose detectionon Glucose Ql (U) 1000 mg/dl Normal [facility] Work Phone: Urine leukocyte esterase det ection by dipstickon 03-20-2022 Leukocyte esterase Test strip Ql (U) 100 /ul Negative [facility] Work Phone: Urine pHon 03-20-2022 pH (U) 6.0 [pH] 5.0 - 8.0 [facility] Work Phone: Urine sediment bacteria coun t by microscopy (number/high power field)on 03-20-2022 Bacteria LM.HPF (Urine sed) [#/Area] 2 /[HPF] None Seen [facility] Work Phone: Urine specific gravity measu rementon 03-20-2022 Specific gravity (U) [Rel density] 1.015 1.002-1.03 0 [facility] Work Phone: Urobilinogen Auto test strip Ql (U)on 03-20-2022 Urobilinogen Ql (U) Normal mg/dl Normal [facility] Work Phone: Whole blood hemoglobin A1c/t otal hemoglobin ratio (mass fraction)on 03-20-2022 HbA1c (Bld) [Mass fraction] 13.1 % 3.8-5.6 [facility] Work Phone: Comment on above: Normal < 5.7 % Predi abetic 5.7 - 6.4 % Diabetic >or= 6.5 % Please note range changes. Absolute lymphocyte counton 02-24-2022 Lymphocytes Auto (Unsp spec) [#/Vol] 1.98 10*3/uL 0.83-4.51 [facility] Work Phone: Basophil percentageon 2021 Basophils/100 WBC (Bld) 0.8 % 0-1 [facility] Work Phone: Bilirubin [Mass/Vol] 0.50 mg/dL 0.20-1.00 [facility] Work Phone: Comment on above: For patients on eltr ombopag therapy, use of Dimension [place] TBIL is not recommended. Chloride [Moles/Vol] 87 mmol/L 98-107 [facility] Work Phone: Eosinophils/100 WBC (Bld) 0.2 % 0-5 [facility] Work Phone: Glucose [Mass/Vol] 569 mg/dL 74-106 [facility] Work Phone: Comment on above: Critical Result(s) C alled at: 14:47:48 02/24/2022 by: Juana Delacruz. Results read back by same.Glucose result greater than or equal to 200 mg/dLsuggests DIABETES MELLITUS per A.D.A. criteria. Neutrophils (Bld) [#/Vol] 3.9 10*3/uL 2.0-7.7 [facility] Work Phone: Neutrophils/100 WBC (Bld) 62.4 % 47-70 [facility] Work Phone: Potassium [Moles/Vol] 3.8 mmol/L 3.5-5.1 [facility] Work Phone: Protein [Mass/Vol] 7.6 g/dL 6.4-8.2 [facility] Work Phone: [phone] Sodium [Moles/Vol] 127 mmol/L 136-145 [facility] Work Phone: WBC (Bld) [#/Vol] 6.3 10*3/uL 4.4-11.0 [facility] Work Phone: Blood erythrocytes count (nu mber/volume)on 02-24-2022 RBC (Bld) [#/Vol] 4.08 10*6/uL 4.2-5.[address] [facility] Work Phone: Blood hemoglobin measurement (mass/volume)on 02-24-2022 Hemoglobin (Bld) [Mass/Vol] 12.7 g/dL 12.0-15.0 [facility] Work Phone: [phone] Blood lymphocytes/100 leukoc yteson 02-24-2022 Lymphocytes/100 WBC (Bld) 31.4 % 19-41 [facility] Work Phone: Blood monocytes/100 leukocyt eson 02-24-2022 Monocytes/100 WBC (Bld) 4.4 % 0-10 [facility] Work Phone: Blood platelet mean volumeon 02-24-2022 Platelet mean volume (Bld) [Entitic vol] 9.7 fL 6.2-12.0 [facility] Work Phone: Determination of erythrocyte mean corpuscular volume (MCV)on 02-24-2022 MCV (RBC) [Entitic vol] 88.0 fL 81-99 [facility] Work Phone: Glucose Glucometer (BldC) [M ass/Vol]on 02-24-2022 Glucose [Mass/Vol] 407 mg/dL 74-106 [facility] Work Phone: Comment on above: MANAGEMENT OF PATIEN T CARE PER NURSING PROTOCOL Hematocrit Auto (Bld) [Volum e fraction]on 02-24-2022 Hematocrit (Bld) [Volume fraction] 35.9 % 37-47 [facility] Work Phone: Laboratory - Chemistry and C hemistry - challengeon 02-24-2022 ALP [Catalytic activity/Vol] 93 U/L 45-117 [facility] Work Phone: ALT [Catalytic activity/Vol] 56 U/L 13-56 [facility] Work Phone: CO2 [Moles/Vol] 27.0 mmol/L 21.0-32.0 [facility] Work Phone: Globulin (S) [Mass/Vol] 4.0 g/dL 2.2-4.2 [facility] Work Phone: Urea nitrogen/Creatinine [Mass ratio] 8.1 mg/mg 10-20 [facility] Work Phone: Laboratory - Hematology and Cell countson 02-24-2022 Erythrocyte distribution width (RBC) [Entitic vol] 44.8 fL 35.1-43.9 [facility] Work Phone: Erythrocyte distribution width (RBC) [Ratio] 14.0 % 11.6-14.6 [facility] Work Phone: Immature granulocytes/100 WBC (Bld) 0.800 % 0.0-0.9 [facility] Work Phone: Comment on above: IG% - Immature Granu locytes (promyelocytes, myelocytes and metamyelocytes) > 1% indicates that a LEFT SHIFT is Present. MCH (RBC) [Entitic mass] 31.1 pg 27.0-32.0 [facility] Work Phone: Nucleated RBC/100 WBC (Bld) [Ratio] 0 % 0-5 [facility] Work Phone: MCHC Auto (RBC) [Mass/Vol]on 02-24-2022 MCHC (RBC) [Mass/Vol] 35.4 g/dL 32-36 [facility] Work Phone: No Panel Informationon 02-24 Estimated Creatinine Clearance Calc 29.76 ml/min [facility] Work Phone: Estimated GFR (MDRD) Amer 47 mL/min >60 [facility] Work Phone: Comment on above: GFR Calc Estimated GFR (MDRD) Non-Af Amer 38 mL/min >60 [facility] Work Phone: Comment on above: Non- GFR Calc Platelets bldon 02-24-2022 Platelets (Bld) [#/Vol] 231 10*3/uL 150-450 [facility] Work Phone: Serum or plasma albumin tai urement (mass/volume)on 02-24-2022 Albumin [Mass/Vol] 3.6 g/dL 3.2-5.0 [facility] Work Phone: Serum or plasma albumin/glob ulin mass ratioon 02-24-2022 Albumin/Globulin [Mass ratio] 0.9 {ratio} 0.9-2.4 [facility] Work Phone: Serum or plasma calcium tai urement (mass/volume)on 02-24-2022 Calcium [Mass/Vol] 8.3 mg/dL 8.5-10.1 [facility] Work Phone: Serum or plasma creatinine m easurement (mass/volume)on 02-24-2022 Creatinine [Mass/Vol] 1.48 mg/dL 0.55-1.02 [facility] Work Phone: Comment on above: The validity of the calculated GFR & GFRAA in patients over 70 years has not been determined. Clinical correlation is essential. Serum or plasma urea nitroge n measurement (mass/volume)on 02-24-2022 Urea nitrogen [Mass/Vol] 12 mg/dL 7-18 [facility] Work Phone: Thin prep Papanicolaou smear with manual screeningon 02-24-2022 Thin prep Papanicolaou smear with manual screening 45 U/L 15-37 [facility] Work Phone: Thin prep Papanicolaou smear with manual screening 13 5-15 [facility] Work Phone: Absolute lymphocyte counton 01-13-2022 Lymphocytes Auto (Unsp spec) [#/Vol] 2.40 10*3/uL 0.83-4.51 [facility] Work Phone: Amorphous sediment detection in urine sediment by light microscopyon 01-13-2022 Amorphous sediment LM Ql (Urine sed) 1+ URATE [facility] Work Phone: Basophil percentageon 2021 Basophil percentage 25-50 SEEN /hpf 0-5 [facility] Work Phone: Basophils/100 WBC (Bld) 0.4 % 0-1 [facility] Work Phone: Chloride [Moles/Vol] 89 mmol/L 98-107 [facility] Work Phone: Eosinophils/100 WBC (Bld) 0.3 % 0-5 [facility] Work Phone: Glucose [Mass/Vol] 496 mg/dL 74-106 [facility] Work Phone: [phone] Comment on above: Glucose result great er than or equal to 200 mg/dLsuggests DIABETES MELLITUS per A.D.A. criteria. Neutrophils (Bld) [#/Vol] 4.8 10*3/uL 2.0-7.7 [facility] Work Phone: Neutrophils/100 WBC (Bld) 63.1 % 47-70 [facility] Work Phone: Potassium [Moles/Vol] 4.2 mmol/L 3.5-5.1 [facility] Work [facility]: Sodium [Moles/Vol] 126 mmol/L 136-145 [facility] Work Phone: Comment on above: Critical Result(s) C alled at: 15:44:11 01/13/2022 by: AUSTYN ESTRELLA. to debra lynch rn ed Results read back by same. WBC (Bld) [#/Vol] 7.6 10*3/uL 4.4-11.0 [facility] Work Phone: Bilirubin Test strip Ql (U)o n 01-13-2022 Bilirubin Ql (U) Negative Negative [facility] Work Phone: Blood erythrocytes count (nu mber/volume)on 01-13-2022 RBC (Bld) [#/Vol] 4.55 10*6/uL 4.2-5.[address] [facility] Work Phone: Blood hemoglobin measurement (mass/volume)on 01-13-2022 Hemoglobin (Bld) [Mass/Vol] 14.0 g/dL 12.0-15.0 [facility] Work Phone: Blood lymphocytes/100 leukoc yteson 01-13-2022 Lymphocytes/100 WBC (Bld) 31.7 % 19-41 [facility] Work Phone: Blood monocytes/100 leukocyt eson 01-13-2022 Monocytes/100 WBC (Bld) 4.0 % 0-10 [facility] Work Phone: Blood platelet mean volumeon 01-13-2022 Platelet mean volume (Bld) [Entitic vol] 9.8 fL 6.2-12.0 [facility] Work Phone: Culture, urineon 01-13-2022 Bacteria identified Cx Nom (U) Negative [facility] Work Phone: Bacteria identified Cx Nom (U) Mixed Gram Pos & Gram Neg Org [facility] Work Phone: Determination of erythrocyte mean corpuscular volume (MCV)on 01-13-2022 MCV (RBC) [Entitic vol] 82.6 fL 81-99 [facility] Work Phone: Glucose Glucometer (BldC) [M ass/Vol]on 01-13-2022 Glucose [Mass/Vol] 361 mg/dL 74-106 [facility] Work Phone: Comment on above: MANAGEMENT OF PATIEN T CARE PER NURSING PROTOCOL Hematocrit Auto (Bld) [Volum e fraction]on 01-13-2022 Hematocrit (Bld) [Volume fraction] 37.6 % 37-47 [facility] Work Phone: Ketones Test strip Ql (U)on 01-13-2022 Ketones Ql (U) Negative Negative [facility] Work Phone: Laboratory - Chemistry and C hemistry - challengeon 01-13-2022 CO2 [Moles/Vol] 28.0 mmol/L 21.0-32.0 [facility] Work Phone: Urea nitrogen/Creatinine [Mass ratio] 11.5 mg/mg 10-20 [facility] Work Phone: Laboratory - Hematology and Cell countson 01-13-2022 Erythrocyte distribution width (RBC) [Entitic vol] 42.2 fL 35.1-43.9 [facility] Work Phone: Erythrocyte distribution width (RBC) [Ratio] 14.0 % 11.6-14.6 [facility] Work Phone: Immature granulocytes/100 WBC (Bld) 0.500 % 0.0-0.9 [facility] Work Phone: Comment on above: IG% - Immature Granu locytes (promyelocytes, myelocytes and metamyelocytes) > 1% indicates that a LEFT SHIFT is Present. MCH (RBC) [Entitic mass] 30.8 pg 27.0-32.0 [facility] Work Phone: Nucleated RBC/100 WBC (Bld) [Ratio] 0 % 0-5 [facility] Work Phone: MCHC Auto (RBC) [Mass/Vol]on 01-13-2022 MCHC (RBC) [Mass/Vol] 37.2 g/dL 32-36 [facility] Work Phone: Mucus LM Ql (Urine sed)on Mucus Ql (Urine sed) 0 SEEN /hpf [facility] Work Phone: Nitrite Test strip Ql (U)on 01-13-2022 Nitrite Ql (U) Negative Negative [facility] Work Phone: No Panel Informationon 01-13 Estimated Creatinine Clearance Calc 28.06 ml/min [facility] Work Phone: Estimated GFR (MDRD) Amer 43 mL/min >60 [facility] Work Phone: Comment on above: GFR Calc Estimated GFR (MDRD) Non-Af Amer 36 mL/min >60 [facility] Work Phone: Comment on above: Non- GFR Calc Insulin Level 32.1 mU/L 2.6-37.6 [facility] Work Phone: Comment on above: Please Note: INSULIN METHOD & REFERENCE RANGE CHANGEEffective 11/04/2017. Platelets bldon 01-13-2022 Platelets (Bld) [#/Vol] 267 10*3/uL 150-450 [facility] Work Phone: Protein Test strip Ql (U)on 01-13-2022 Protein Ql (U) 30 mg/dl Negative [facility] Work Phone: Serum or plasma acetone tai urement (mass/volume)on 01-13-2022 Acetone [Mass/Vol] Negative NEG [facility] Work Phone: Serum or plasma calcium tai urement (mass/volume)on 01-13-2022 Calcium [Mass/Vol] 9.8 mg/dL 8.5-10.1 [facility] Work Phone: Serum or plasma creatinine m easurement (mass/volume)on 01-13-2022 Creatinine [Mass/Vol] 1.57 mg/dL 0.55-1.02 [facility] Work Phone: Comment on above: The validity of the calculated GFR & GFRAA in patients over 70 years has not been determined. Clinical correlation is essential. Serum or plasma urea nitroge n measurement (mass/volume)on 01-13-2022 Urea nitrogen [Mass/Vol] 18 mg/dL 7-18 [facility] Work Phone: Squamous epithelial cells de tection in urine sediment by light microscopyon 01-13-2022 Epithelial cells.squamous LM Ql (Urine sed) 0-5 SEEN /hpf 5-10 [facility] Work Phone: Thin prep Papanicolaou smear with manual screeningon 01-13-2022 Thin prep Papanicolaou smear with manual screening 9 5-15 [facility] Work Phone: Urine blood detectionon 12-24 RBC Ql (U) 10 /ul Negative [facility] Work Phone: RBC Ql (U) 0-5 SEEN /hpf 0-5 [facility] Work Phone: Urine clarityon 01-13-2022 Clarity (U) Sl. Cloudy Clear [facility] Work Phone: Urine color determinationon 01-13-2022 Color (U) Yellow Yellow [facility] Work Phone: Urine glucose detectionon Glucose Ql (U) 1000 mg/dl Normal [facility] Work Phone: Urine leukocyte esterase det ection by dipstickon 01-13-2022 Leukocyte esterase Test strip Ql (U) 500 /ul Negative [facility] Work Phone: Urine pHon 01-13-2022 pH (U) 5.0 [pH] 5.0 - 8.0 [facility] Work Phone: Urine sediment bacteria coun t by microscopy (number/high power field)on 01-13-2022 Bacteria LM.HPF (Urine sed) [#/Area] 0 /[HPF] None Seen [facility] Work Phone: Urine specific gravity measu rementon 01-13-2022 Specific gravity (U) [Rel density] 1.015 1.002-1.03 0 [facility] Work Phone: Urobilinogen Auto test strip Ql (U)on 01-13-2022 Urobilinogen Ql (U) Normal mg/dl Normal [facility] Work Phone: Gram stain for investigation of transfusion reactionon 09-27-2021 Microscopic observation Gram stain Nom (Unsp spec) [facility] Work Phone: .Auto Diffon 12-13-2019 Ammonia (P) [Mass/Vol] 0.30 10 3/mcL Normal 0.15-1.00 [facility] ([place]) Comment on above: Performed By: #### Taco PEARCE BMP #### [place] [address] #### CBC, ADIFF, ANEU #### [address] [address] Basophils (Bld) [#/Vol] 0.00 10 3/mcL Normal 0.00-0.19 [facility] ([place]) Comment on above: Performed By: #### Taco PEARCE, BMP #### [place] [address] #### CBC, ADIFF, ANEU #### [address] [address] Basophils/100 WBC (Bld) 0.5 % Normal 0.0-2.5 A [facility] ([place]) Comment on above: Performed By: #### Taco PEARCE, BMP #### [place] [address] #### CBC, ADIFF, ANEU #### [address] [address] Eosinophils (Bld) [#/Vol] 0.00 10 3/mcL Normal 0.00-0. 40 [facility] ([place]) Comment on above: Performed By: #### G FR, BMP #### [address] [address] #### CBC, ADIFF, ANEU #### [address] [address] Eosinophils/100 WBC (Bld) 0.8 % Normal 0.0-7.0 [facility] ([place]) Comment on above: Performed By: #### G FR, BMP #### [place] [address] #### CBC, ADIFF, ANEU #### [address] [address] Lymphocytes (Bld) [#/Vol] 2.00 10 3/mcL Normal 0.77-3. 85 [facility] ([place]) Comment on above: Performed By: #### G FR, BMP #### [place] [address] #### CBC, ADIFF, ANEU #### [address] [address] Lymphocytes/100 WBC (Bld) 33.6 % Normal 10.0-50.0 [facility] ([place]) Comment on above: Performed By: #### G FR, BMP #### [place] [address] #### CBC, ADIFF, ANEU #### [address] [address] Monocytes/100 WBC (Bld) 4.7 % Normal 1.7-13.0 A [facility] ([place]) Comment on above: Performed By: #### G FR, BMP #### [place] [address] #### CBC, ADIFF, ANEU #### [address] [address] Neutrophils/100 WBC (Bld) 60.4 % Normal 37.0-80.0 [facility] ([place]) Comment on above: Performed By: #### G FR, BMP #### [place] [address] #### CBC, ADIFF, ANEU #### [address] [address] .GFRon 12-13-2019 GFR 54 ml/min/1.73sqm Normal [facility] ([place]) Comment on above: Result Comment: GFR Population [...] Performed By: #### G FR, BMP #### [place] [address] #### AYANA, ADIFF, ANEU #### [address] [address] GFR Non- 45 ml/min/1.73sqm Normal [facility] ([place]) Comment on above: Result Comment: GFR Population [...] Performed By: #### G FR, BMP #### [address] [address] #### CBC, ADIFF, ANEU #### [place] [address] .NEUABSon 12-13-2019 Neutrophils (Bld) [#/Vol] 3.50 10 3/mcL Normal 2.85-6. 16 [facility] ([place]) Comment on above: Performed By: #### Taco PEARCE, BMP #### [place] [address] #### CBC, ADIFF, ANEU #### [address] [address] .Urinalysis Microscopic (AO) on 12-13-2019 RBC (U) [#/Vol] LOADED Abnormal None Seen [facility] ([place]) Comment on above: Performed By: #### U AMICAO, UA #### [place] [address] UA Squam Epithelial 0-5 Abnormal None Seen [facility] ([place]) Comment on above: Performed By: #### U AMICAO, UA #### [place] [address] UA WBC 0-5 Abnormal None Seen [facility] ([place]) Comment on above: Performed By: #### U AMICAO, UA #### [place] [address] BMPon 12-13-2019 Calcium [Mass/Vol] 9.2 mg/dL Normal 8.4-10.2 [facility] ([place]) Comment on above: Performed By: #### Taco PEACRE, BMP #### [place] [address] #### CBC, ADIFF, ANEU #### [address] [address] Chloride [Moles/Vol] 90 mmol/L Low 98-107 [facility] ([place]) Comment on above: Performed By: #### Taco PEAREC, BMP #### [place] [address] #### CBC, ADIFF, ANEU #### [address] [address] CO2 [Moles/Vol] 25 mmol/L Normal 22-29 [facility] ([place]) Comment on above: Performed By: #### G FR, BMP #### [place] [address] #### CBC, ADIFF, ANEU #### [address] [address] Creatinine [Mass/Vol] 1.24 mg/dL High 0.55-1.02 [facility] ([place]) Comment on above: Performed By: #### G FR, BMP #### [place] [address] #### CBC, ADIFF, ANEU #### [address] [address] Electrolyte Balance 11.0 mEq/L Normal [facility] ([place]) Comment on above: Performed By: #### Taco FR, BMP #### [place] [address] #### CBC, ADIFF, ANEU #### [address] [address] Glucose [Mass/Vol] 697 mg/dL Critically abnormal 70-105 [facility] ([place]) Comment on above: Performed By: #### Taco FR, BMP #### [place] [address] #### CBC, ADIFF, ANEU #### [address] [address] Potassium [Moles/Vol] 4.0 mmol/L Normal 3.5-5.1 [facility] ([place]) Comment on above: Performed By: #### G FR, BMP #### [place] [address] #### CBC, ADIFF, ANEU #### [address] [address] Sodium [Moles/Vol] 126 mmol/L Low 136-145 [facility] ([place]) Comment on above: Performed By: #### G FR, BMP #### [place] [address] #### CBC, ADIFF, ANEU #### [address] [address] Urea nitrogen [Mass/Vol] 17 mg/dL Normal 7-18 [facility] ([place]) Comment on above: Performed By: #### G FR, BMP #### [address] [address] #### CBC, ADIFF, ANEU #### [address] [address] Urea nitrogen/Creatinine [Mass ratio] 14 ratio Normal 7-27 [facility] ([place]) Comment on above: Performed By: #### G FR, BMP #### [address] [address] #### CBC, ADIFF, ANEU #### [address] [address] CBCon 12-13-2019 Erythrocyte distribution width (RBC) [Ratio] 12.7 % Normal 11.5-14.5 [facility] ([place]) Comment on above: Performed By: #### G FR, BMP #### [place] [address] #### CBC, ADIFF, ANEU #### [address] [address] Hematocrit (Bld) [Volume fraction] 41.3 % Normal 37.0-47.0 [facility] ([place]) Comment on above: Performed By: #### G FR, BMP #### [place] [address] #### CBC, ADIFF, ANEU #### [address] [address] Hemoglobin (Bld) [Mass/Vol] 13.9 G/dL Normal 12.0-16.0 [facility] ([place]) Comment on above: Performed By: #### G FR, BMP #### [address] [address] #### CBC, ADIFF, ANEU #### [address] [address] MCH (RBC) [Entitic mass] 30.5 pg Normal 27.0-31.2 [facility] ([place]) Comment on above: Performed By: #### Taco FR, BMP #### [place] [address] #### CBC, ADIFF, ANEU #### [address] [address] MCHC (RBC) [Mass/Vol] 33.7 G/dL Normal 33.0-37.0 [facility] ([place]) Comment on above: Performed By: #### G FR, BMP #### [place] [address] #### CBC, ADIFF, ANEU #### [address] [address] MCV (RBC) [Entitic vol] 90.5 fL Normal 80.0-94.0 [facility] ([place]) Comment on above: Performed By: #### Taco FR, BMP #### [place] [address] #### CBC, ADIFF, ANEU #### [address] [address] Platelet mean volume (Bld) [Entitic vol] 7.9 fL Normal 7.4-10.4 [facility] ([place]) Comment on above: Performed By: #### Taco FR, BMP #### [place] [address] #### CBC, ADIFF, ANEU #### [address] [address] Platelets (Bld) [#/Vol] 216 10 3/mcL Normal 130-400 [facility] ([place]) Comment on above: Performed By: #### Taco FR, BMP #### [place] [address] #### CBC, ADIFF, ANEU #### [address] [address] RBC (Bld) [#/Vol] 4.56 10 6/mcL Normal 4.20-5.40 [facility] ([place]) Comment on above: Performed By: #### G FR, BMP #### [place] [id number] [place] [address] #### CBC, ADIFF, ANEU #### [place] [address] [place], [place] [address] WBC (Bld) [#/Vol] 5.80 10 3/mcL Normal 4.60-10.80 [facility] ([place]) Comment on above: Performed By: #### G FR, BMP #### [facility] [address] [place] [address] #### CBC, ADIFF, ANEU #### [facility] [address] [place], [place] [address] CT ABDOMEN/PELVIS W/O CONTRA STon 12-13-2019 CT [...] Sign Date: 12/13/2019 3:36:55 PM Ordering Provider:Fermin Dia [facility] ([place]) UAon 12-13-2019 Color (U) Light yellow Normal [facility] ([place]) Comment on above: Performed By: #### U AMICAO, UA #### [place] [address] Glucose (U) [Mass/Vol] 500 mg/dL Abnormal Negative [facility] ([place]) Comment on above: Performed By: #### U AMICAO, UA #### [place] [address] Ketones Ql (U) Negative Normal Negative [facility] ([place]) Comment on above: Performed By: #### U AMICAO, UA #### [place] [address] UA Appear Slightly Cloudy Abnormal Clear [facility] ([place]) Comment on above: Performed By: #### U AMICAO, UA #### [place] [address] UA Blood Large Abnormal Negative [facility] ([place]) Comment on above: Performed By: #### U AMICAO, UA #### [place] [address] UA Leuk Est Negative Normal Negative [facility] ([place]) Comment on above: Performed By: #### U AMICAO, UA #### [place] [address] UA Nitrite Negative Normal Negative [facility] ([place]) Comment on above: Performed By: #### U AMICAO, UA #### [place] [address] UA pH 5.0 Normal 5.0 - 8.0 [facility] ([place]) Comment on above: Performed By: #### U AMICAO, UA #### [place] [address] UA Protein Negative Normal Negative [facility] ([place]) Comment on above: Performed By: #### U AMICAO, UA #### [place] [address] UA Spec Grav <=1.005 Abnormal 1.015-1.02 5 [facility] ([place]) Comment on above: Performed By: #### U AMICAO, UA #### [facility] [address] [place] [address] UA Specimen Type Clean Catch Normal [facility] ([place]) Comment on above: Performed By: #### U AMICAO, UA #### [facility] [address] [place] [address] UA Urobilinogen 0.2 E.U./dL Normal 0.2-1.0 [facility] ([place]) Comment on above: Performed By: #### U AMICAO, UA #### [facility] [address] [place] [address] Urobilinogen Qn (U) Negative Normal Negative [facility] ([place]) Comment on above: Performed By: #### U AMICAO, UA #### [facility] [address] [place] [address] Jovita 09-05-2019 CNPN Telephone (PREANME) TERRANCE BRAR ([id number]) 1965 F Date Time Provider Department 09/05/19 CAITY BURDEN (BRUSH CLEARING LABORER) PREANME During your visit today, we recorded the following information about you: Caity Burden APRN.DEYANIRA 09/05/2019 9:53 AM Signed Notifying surgeon's office and PCP, pt's pre-op A1c 14.4. Pt is a IDDM, last A1c 13.0 07/13/2019. Please advise. She is scheduled for LAPAROSCOPIC INCISIONAL RECURRENT HERNIA REPAIR W/ MESH REDUCIBLE ADULT With Dr. Dee 09/11/2019. Caity Burden APRN.SIGNING AGENT 09/05/2019 9:59 AM Signed Also noted to be have TSH level of 38.7, calcium 11.4, sodium 130. Coco NurADVERTISING ACCOUNT EXECUTIVE, MA 09/05/2019 10:20 AM Addendum Patient was discharged from practice due to many no shows. She no longer has a PCP. See phone encounter on 07/05/2019. BESSIE No APRN.DEYANIRA 09/05/2019 2:46 PM Signed Spoke with pt and reviewed abnormal labs and that pt no longer has a [facility] PCP due to no shows. Encouraged pt to establish with another PCP [facility] to have the labs addressed and medication adjustments. Connie Colon PA-C 09/06/2019 2:26 PM Signed Anam Flanagan (Basket Person) Bertram; Anitha Domingo LPN; Red Garcia 16 [...] surgery. Controlling her diabetes mellitus will require fci commitment on her part to keep appointments, [...] to how this appt can occur in [facility] Carlee Valencia III MD Allergies As of [...] 12/07/2008 More... Routine General Medical Examination at [facility]*12/10/2008 06/03/2015 More... Benign neoplasm of colon [D12.6] [...] Status:Closed by [facility] NUR CMA on 09/11/19 [facility] Letter Text [facility] [id number] [place] [address]Rfub: [phone] [address] [place] [address]/24/Shy Brar,We missed seeing you for your scheduled appointment with Dr. Calixto on03/08/18 at the [place] location.Our goal is to offer the best possible care to our patients, so we areconcerned when you are unable to keep a scheduled appointment.Please call us at [phone] so that we can reschedule your appointment fora day and time that will work for you.If you find it difficult to keep your appointment, please notify our officeat least 24 hours in advance so that we may reschedule your appointment.We are glad that you have chosen [facility] for yourcardiovascular needs and hope to continue serving you in the future.Sincerely,Mary Alice Calixto MD(Signed electronically to expedite mailing) Normal [facility] Office Visit: UC: Luke HAIR yesica lemons 07-28-2017 Fall risk assessment No Invalid Interpretation Code [facility] Work Phone: Protein mass conc yes Invalid Interpretation Code [facility] Work Phone: Protein mass conc Done Invalid Interpretation Code [facility] Work Phone: Tobacco smoking status NHIS Current every day smoker Invalid Interpretation Code [facility] Work Phone: Lab Report: Culture, Urineon 02-22-2015 CUUR . Invalid Interpretation Code [facility] Work Phone: Lab Report: (P) Urinalysis, Completeon 02-20-2015 Specific gravity Refractometry Relative Density (U) 1.015 Invalid Interpretation Code 1.002-1.03 0 [facility] Work Phone: Lab Report: BNP,B-Type NATRI URETIC PEPTIDEon 02-20-2015 Natriuretic peptide B mass conc (Bld) 8.6 pg/mL Invalid Interpretation Code 0-100 [facility] Work Phone: Lab Report: Basic Metabolic Profile (BMP)on 02-20-2015 Anion gap 4 molar conc 9 Invalid Interpretation Code 5-15 [facility] Work Phone: Calcium mass conc 8.3 mg/dL Low 8.5-10.1 [facility] Work Phone: Chloride molar conc 100 mmol/L Invalid Interpretation Code 98-107 [facility] Work Phone: CO2 ppres (BldV) 27.0 mmol/L Invalid Interpretation Code 21.0-32.0 [facility] Work Phone: Creatinine mass conc 1.2 mg/dL High 0.6-1.0 [facility] Work Phone: EST GFR - AA 61 mL/min Invalid Interpretation Code >60 [facility] Work Phone: [phone] GFR/1.73 sq M predicted among non-blacks MDRD vol rate/area (S/P/Bld) 50 mL/min/{1.73_m2} Low >60 [facility] Work Phone: Glucose mass conc 170 mg/dL High 70-110 [facility] Work Phone: Potassium molar conc 3.3 mmol/L Low 3.5-5.1 [facility] Work Phone: [phone] Sodium molar conc 136 mmol/L Invalid Interpretation Code 136-145 [facility] Work Phone: Urea nitrogen mass conc 10 mg/dL Invalid Interpretation Code 7-18 [facility] Work Phone: Urea nitrogen/Creatinine mass ratio 8.3 RATIO Low 10-20 [facility] Work Phone: Lab Report: CBC W/Diff, Auto matedon 02-20-2015 Absolute Neut 5.3 X10 3/UL Invalid Interpretation Code 2.0-7.7 [facility] Work Phone: [phone] Basophils/100 WBC Auto (Bld) 0.5 % Invalid Interpretation Code 0-1 [facility] Work Phone: Eosinophils/100 WBC Auto (Bld) 1.5 % Invalid Interpretation Code 0-5 [facility] Work Phone: [phone] Erythrocyte distribution width Auto Ratio (RBC) 47.5 fL High 35.1-43.9 [facility] Work Phone: Hematocrit Auto Volume Fraction (Bld) 36.1 % Low 37-47 [facility] Work Phone: Hemoglobin mass conc (Bld) 11.5 g/dL Low 12.0-15.0 [facility] Work Phone: Lymphocytes Auto #/vol (Bld) 1.54 X10 3/UL Invalid Interpretation Code 0.83-4.51 [facility] Work Phone: [phone] Lymphocytes/100 WBC Auto (Bld) 20.7 % Invalid Interpretation Code 19-41 [facility] Work Phone: [phone] MCH Auto Entitic mass (RBC) 29.9 pg Invalid Interpretation Code 27.0-32.0 [facility] Work Phone: [phone] MCHC Auto mass conc (RBC) 31.9 G/GL Low 32-36 [facility] Work Phone: MCV Auto Entitic volume (RBC) 93.8 fL Invalid Interpretation Code 81-99 [facility] Work Phone: Monocytes/100 WBC Auto (Bld) 5.5 % Invalid Interpretation Code 0-10 [facility] Work Phone: [phone] Neutrophils/100 WBC Auto (Bld) 71.5 % High 47-70 [facility] Work Phone: Platelet mean volume Fercho-Jana Entitic volume (Bld) 9.9 fL Invalid Interpretation Code 6.2-12.0 [facility] Work Phone: Platelets Auto #/vol (Bld) 259 10*3/mm3 Invalid Interpretation Code 150-450 [facility] Work Phone: [phone] RBC Auto #/vol (Bld) 3.85 10*6/uL Low 4.2-5.4 [facility] Work Phone: WBC Auto #/vol (Bld) 7.4 10*3/uL Invalid Interpretation Code 4.4-11.0 [facility] Work Phone: Lab Report: Thyroid Stim Hor ivory (TSH)on 02-20-2015 Thyrotropin Qn 79.90 u[iU]/mL High 0.358-3.74 [facility] Work Phone: Lab Report: Troponin-Ion Troponin I.cardiac mass conc ng/mL Invalid Interpretation Code <0.06 [facility] Work Phone: Lab Report: A1Con 08-11-2010 Hemoglobin A1c/Hemoglobin.total mass fraction (Bld) 9.6 % High 4.0-6.3 [facility] Work Phone: Lab Report: CMPon 08-11-2010 Albumin mass conc 3.6 g/dL Normal 3.4-5.0 [facility] Work Phone: ALP enzyme act/vol (Bld) 52 U/L Normal 50-136 [facility] Work Phone: ALT enzyme act/vol 31 U/L Normal 12-78 [facility] Clinic Work Phone: AST enzyme act/vol 14 U/L Low 15-37 [facility] Work Phone: Bilirubin mass conc 0.60 mg/dL Normal 0.00-1.00 [facility] Work Phone: Lab Report: LIPIDon 08-11-20 10 Cholesterol in HDL mass conc 28 mg/dL Low [facility] Work Phone: Cholesterol in LDL mass conc 106 mg/dL Normal 0-130 [facility] Work Phone: Cholesterol mass conc 189 mg/dL Normal 200 [facility] Work Phone: Lipoprotein.pre-beta mass conc 55 mg/dL High 5-40 [facility] Work Phone: Triglyceride mass conc 275 mg/dL High [facility] Work Phone: Culture, urine Bacteria identified Cx Nom (U) Negative [facility] Work Phone: Bacteria identified Cx Nom (U) Mixed Gram Pos & Gram Neg Org [facility] Work Phone: [phone] Bacteria identified Cx Nom (U) Culture exhibits no growth. [facility] Work Phone: Vital Signs Date Time Vital Sign Value Performing Clinician Faci lity 05-23-2025 07:49-0400 Body height 152.[address] Lizet Linares MD Work Phone: [facility] 01-30-2025 13:21-0400 Body mass index (BMI) [Ratio] 39 kg/m2 Dr. Lizet Linares MD Work Phone: [facility] 01-30-2025 13:21-0400 Body weight 90.[address] Lizet Linares MD Work Phone: [facility] 01-30-2025 13:21-0400 Diastolic blood pressure 75 mm[Hg] Dr. Lizet Linares MD Work Phone: [facility] 01-30-2025 13:21-0400 Heart rate 81 /min Dr. Lizet Linares MD Work Phone: [facility] 01-30-2025 13:21-0400 Respiratory rate 14 /min Dr. Lizet Linares MD Work Phone: [facility] 01-30-2025 13:21-0400 SaO2% (BldA) [Mass fraction] 95 % Dr. Lizet Linares MD Work Phone: [facility] 01-30-2025 13:21-0400 Systolic blood pressure 117 mm[Hg] Dr. Lizet Linares MD Work Phone: [facility] 01-22-2025 14:00-0400 Diastolic blood pressure 89 mm[Hg] Dr. Lizet Linares MD Work Phone: [facility] 01-22-2025 14:00-0400 Heart rate 78 /min Dr. Lizet Linares MD Work Phone: [facility] 01-22-2025 14:00-0400 Respiratory rate 18 /min Dr. Lizet Linares MD Work Phone: [facility] 01-22-2025 14:00-0400 SaO2% (BldA) [Mass fraction] 98 % Dr. Lizet Linares MD Work Phone: [facility] 01-22-2025 14:00-0400 Systolic blood pressure 117 mm[Hg] Dr. Lizet Linares MD Work Phone: [facility] 01-22-2025 13:50-0400 Body temperature 98.2 [degF] Dr. Lizet Linares MD Work Phone: [facility] 01-22-2025 10:42-0400 Body height 152.[address] Lizet Linares MD Work Phone: [facility] 01-22-2025 10:42-0400 Body mass index (BMI) [Ratio] 39.3 kg/m2 Dr. Lizet Linares MD Work Phone: [facility] 01-22-2025 10:42-0400 Body weight 91.[address] Lizet Linares MD Work Phone: [facility] 10-24-2024 17:21-0500 Body temperature 97.7 [degF] Dr. Lizet Linares MD Work Phone: [facility] 10-24-2024 17:21-0500 Diastolic blood pressure 63 mm[Hg] Dr. Lizet Linares MD Work Phone: [facility] 10-24-2024 17:21-0500 Heart rate 78 /min Dr. Lizet Linares MD Work Phone: [facility] 10-24-2024 17:21-0500 Respiratory rate 16 /min Dr. Lizet Linares MD Work Phone: [facility] 10-24-2024 17:21-0500 SaO2% (BldA) [Mass fraction] 96 % Dr. Lizet Linares MD Work Phone: [facility] 10-24-2024 17:21-0500 Systolic blood pressure 139 mm[Hg] Dr. Lizet Linares MD Work Phone: [facility] 10-24-2024 11:09-0500 Body mass index (BMI) [Ratio] 39.2 kg/m2 Dr. Lizet Linares MD Work Phone: [facility] 10-24-2024 11:09-0500 Body weight [address] Lizet Linares MD Work Phone: [facility] 01-20-2024 05:27-0400 Body temperature 98.6 [degF] Dr. Jarred Lopez Work Phone: [facility] 01-20-2024 05:27-0400 Diastolic blood pressure 58 mm[Hg] Dr. Jarred Lopez Work Phone: [facility] 01-20-2024 05:27-0400 Heart rate 76 /min Dr. Jarred Lopez Work Phone: [facility] 01-20-2024 05:27-0400 Respiratory rate 13 /min Dr. Jarred Lopez Work Phone: [facility] 01-20-2024 05:27-0400 SaO2% (BldA) [Mass fraction] 94 % Dr. Jarred Lopez Work Phone: [facility] 01-20-2024 05:27-0400 Systolic blood pressure 127 mm[Hg] Dr. Jarred Lopez Work Phone: [facility] 01-20-2024 01:04-0400 Body height 152.[address] Jarred Lopez Work Phone: [facility] 01-20-2024 01:04-0400 Body mass index (BMI) [Ratio] 36.7 kg/m2 Dr. Jarred Lopez Work Phone: [facility] 01-20-2024 01:04-0400 Body weight 85.[address] Jarred Lopez Work Phone: 5(630)994-760685 [place] [address] 01-05-2024 13:45-0400 Body temperature 98.1 [degF] Dr. Jarred Lopez Work Phone: 3(666)046-960055 [place] [address] 01-05-2024 13:45-0400 Diastolic blood pressure 56 mm[Hg] Dr. Jarred Lopez Work Phone: 6(960)695-649655 [place] [address] 01-05-2024 13:45-0400 Heart rate 78 /min Dr. Jarred Lopez Work Phone: 9(209)747-319955 [place] [address] 01-05-2024 13:45-0400 Respiratory rate 18 /min Dr. Jarred Lopez Work Phone: 5(397)963-002755 [place] [address] 01-05-2024 13:45-0400 SaO2% (BldA) [Mass fraction] 96 % Dr. Jarred Lopez Work Phone: 6(156)120-503255 [place] [address] 01-05-2024 13:45-0400 Systolic blood pressure 96 mm[Hg] Dr. Jarred Lopez Work Phone: 6(037)028-036755 [place] [address] 01-04-2024 03:05-0400 Body mass index (BMI) [Ratio] 32.8 kg/m2 Dr. Jarred Lopez Work Phone: 3(076)666-352555 [place] [address] 01-04-2024 03:05-0400 Body weight 76.[address] Jarred Lopez Work Phone: 1(945)414-146755 [place] [address] 01-03-2024 22:31-0400 Inhaled oxygen flow rate 2 L/min Dr. Jarred Lopez Work Phone: 6(229)957-201755 [place] [address] 01-03-2024 12:42-0400 Diastolic blood pressure 64 mm[Hg] Dr. Jarred Lopez Work Phone: 7(704)057-942655 [place] [address] 01-03-2024 12:42-0400 Heart rate 88 /min Dr. Jarred Lopez Work Phone: 8(122)374-605855 [place] [address] 01-03-2024 12:42-0400 Systolic blood pressure 127 mm[Hg] Dr. Jarred Lopez Work Phone: 0(612)796-384285 [place] [address] 01-03-2024 11:52-0400 Body temperature 98 [degF] Dr. Jarred Lopez Work Phone: 6(964)767-008555 [place] [address] 01-03-2024 11:52-0400 Respiratory rate 16 /min Dr. Jarred Lopez Work Phone: 5(261)771-038255 [place] [address] 01-03-2024 11:52-0400 SaO2% (BldA) [Mass fraction] 94 % Dr. Jarred Lopez Work Phone: 4(280)103-554055 [place] [address] 01-03-2024 05:53-0400 Body mass index (BMI) [Ratio] 32.7 kg/m2 Dr. Jarred Lopez Work Phone: 4(512)258-496055 [place] [address] 01-03-2024 05:53-0400 Body weight [address] Jarred Lopez Work Phone: 6(781)821-922355 [place] [address] 01-02-2024 14:55-0400 Body height 152.[address] Jarred Lopez Work Phone: 6(997)557-444255 [place] [address] 01-01-2024 22:20-0500 Body temperature 97.6 [degF] Dr. Jarred Lopez Work Phone: 0(208)662-651655 [place] [address] 01-01-2024 22:20-0500 Diastolic blood pressure 62 mm[Hg] Dr. Jarred Lopez Work Phone: 5(157)082-426185 [place] [address] 01-01-2024 22:20-0500 Heart rate 84 /min Dr. Jarred Lopez Work Phone: 0(780)505-184785 [place] [address] 01-01-2024 22:20-0500 Respiratory rate 13 /min Dr. Jarred Lopez Work Phone: 4(667)935-700585 [place] [address] 01-01-2024 22:20-0500 SaO2% (BldA) [Mass fraction] 99 % Dr. Jarred Lopez Work Phone: 5(619)997-108785 [place] [address] 01-01-2024 22:20-0500 Systolic blood pressure 146 mm[Hg] Dr. Jarred Lopez Work Phone: 1(117)688-294055 [place] [address] 01-01-2024 18:32-0500 Body height 152.[address] Jarred Lopez Work Phone: 6(847)773-164055 [place] [address] 01-01-2024 18:32-0500 Body mass index (BMI) [Ratio] 33.1 kg/m2 Dr. Jarred Lopez Work Phone: 9(538)676-717055 [place] [address] 01-01-2024 18:32-0500 Body weight [address] Jarred Lopez Work Phone: 6(795)347-377555 [place] [address] 11-24-2023 15:05-0500 Body temperature 98.5 [degF] Dr. Jarred Lopez Work Phone: 1(067)318-779955 [place] [address] 11-24-2023 15:05-0500 Diastolic blood pressure 63 mm[Hg] Dr. Jarred Lopez Work Phone: 3(213)715-283055 [place] [address] 11-24-2023 15:05-0500 Heart rate 66 /min Dr. Jarred Lopez Work Phone: 2(202)045-215355 [place] [address] 11-24-2023 15:05-0500 Respiratory rate 16 /min Dr. Jarred Lopez Work Phone: 5(987)646-489855 [place] [address] 11-24-2023 15:05-0500 SaO2% (BldA) [Mass fraction] 96 % Dr. Jarred Lopez Work Phone: 1(022)974-116355 [place] [address] 11-24-2023 15:05-0500 Systolic blood pressure 117 mm[Hg] Dr. Jarred Lopez Work Phone: 1(264)876-883755 [place] [address] 11-24-2023 06:00-0500 Body mass index (BMI) [Ratio] 35.9 kg/m2 Dr. Jarred Lopez Work Phone: 4(831)097-823055 [place] [address] 11-24-2023 06:00-0500 Body weight 83.[address] Jarred Lopez Work Phone: 3(098)545-787155 [place] [address] 11-19-2023 10:27-0500 Body temperature 98.1 [degF] Dr. Jarred Lopez Work Phone: 6(252)913-070785 [place] [address] 11-19-2023 10:27-0500 Diastolic blood pressure 74 mm[Hg] Dr. Jarred Lopez Work Phone: 5(131)718-337655 [place] [address] 11-19-2023 10:27-0500 Heart rate 72 /min Dr. Jarred Lopez Work Phone: 8(280)805-607585 [place] [address] 11-19-2023 10:27-0500 Respiratory rate 15 /min Dr. Jarred Lopez Work Phone: 5(398)968-930155 [place] [address] 11-19-2023 10:27-0500 SaO2% (BldA) [Mass fraction] 99 % Dr. Jarred Lopez Work Phone: 3(253)037-860955 [place] [address] 11-19-2023 10:27-0500 Systolic blood pressure 134 mm[Hg] Dr. Jarred Lopez Work Phone: 0(992)136-828155 [place] [address] 11-19-2023 08:20-0500 Body height 152.[address] Jarred Lopez Work Phone: 4(231)964-840555 [place] [address] 11-19-2023 08:20-0500 Body mass index (BMI) [Ratio] 36.9 kg/m2 Dr. Jarred Lopez Work Phone: 8(792)485-238185 [place] [address] 11-19-2023 08:20-0500 Body weight 85.[address] Jarred Lopez Work Phone: 0(881)648-452785 [place] [address] 06-10-2023 16:53-0400 Respiratory rate 16 /min Dr. Ganesh Garcia Work Phone: [facility] 06-10-2023 14:57-0400 Body height 152.[address] Ganesh Garcia Work Phone: [facility] 06-10-2023 14:57-0400 Body temperature 96.4 [degF] Dr. Ganesh Garcia Work Phone: [facility] 06-10-2023 14:57-0400 Diastolic blood pressure 88 mm[Hg] Dr. Ganesh Garcia Work Phone: 4(387)457-586786 [place] [address] 06-10-2023 14:57-0400 Heart rate 93 /min Dr. Ganesh Garcia Work Phone: 9(596)765-542186 [place] [address] 06-10-2023 14:57-0400 SaO2% (BldA) [Mass fraction] 100 % Dr. Ganesh Garcia Work Phone: 9(765)061-379186 [place] [address] 06-10-2023 14:57-0400 Systolic blood pressure 119 mm[Hg] Dr. Ganesh Garcia Work Phone: 2(092)013-740286 [place] [address] 06-06-2023 20:09-0400 Diastolic blood pressure 97 mm[Hg] Dr. Ganesh Garcia Work Phone: 7(127)585-286486 [place] [address] 06-06-2023 20:09-0400 Heart rate 71 /min Dr. Ganesh Garcia Work Phone: 9(605)969-338286 [place] [address] 06-06-2023 20:09-0400 Respiratory rate 16 /min Dr. Ganesh Garcia Work Phone: 3(642)455-301186 [place] [address] 06-06-2023 20:09-0400 SaO2% (BldA) [Mass fraction] 97 % Dr. Ganesh Garcia Work Phone: 8(230)239-462786 [place] [address] 06-06-2023 20:09-0400 Systolic blood pressure 178 mm[Hg] Dr. Ganesh Garcia Work Phone: 2(373)278-051786 [place] [address] 06-06-2023 18:42-0400 Body mass index (BMI) [Ratio] 38 kg/m2 Dr. Ganesh Garcia Work Phone: 2(990)332-768186 [place] [address] 06-06-2023 18:42-0400 Body weight [address] Ganesh Garcia Work Phone: 6(995)203-592386 [place] [address] 06-06-2023 17:48-0400 Body height 152.[address] Ganesh Garcia Work Phone: 8(774)890-610086 [place] [address] 06-06-2023 17:48-0400 Body temperature 96.9 [degF] Dr. Ganesh Garcia Work Phone: 7(895)805-586486 [place] [address] 06-04-2023 21:40-0400 Diastolic blood pressure 58 mm[Hg] Dr. Ganesh Garcia Work Phone: 0(629)897-714245 [place] [address] 06-04-2023 21:40-0400 Heart rate 85 /min Dr. Ganesh Garcia Work Phone: 9(396)343-725086 [place] [address] 06-04-2023 21:40-0400 Respiratory rate 18 /min Dr. Ganesh Garcia Work Phone: 9(052)000-310986 [place] [address] 06-04-2023 21:40-0400 SaO2% (BldA) [Mass fraction] 93 % Dr. Ganesh Garcia Work Phone: 5(061)801-530723 [address] 06-04-2023 21:40-0400 Systolic blood pressure 118 mm[Hg] Dr. Ganesh Garcia Work Phone: 9(912)478-717086 [place] [address] 06-04-2023 19:28-0400 Body mass index (BMI) [Ratio] 37.9 kg/m2 Dr. Ganesh Garcia Work Phone: 1(337)016-710986 [place] [address] 06-04-2023 19:28-0400 Body weight 87.[address] Ganesh Garcia Work Phone: 0(754)696-602486 [place] [address] 06-04-2023 13:49-0400 Body height 152.[address] Ganesh Garcia Work Phone: 3(475)347-025686 [place] [address] 06-04-2023 13:49-0400 Body temperature 96.6 [degF] Dr. Ganesh Garcia Work Phone: 4(572)340-033245 [place] [address] 04-23-2023 14:35-0400 Body temperature 100 [degF] Vernon Degroot APRN.SIGNING AGENT Work Phone: [facility] 04-23-2023 14:35-0400 Body weight 81.1 kg Vernon Degroot APRN.SIGNING AGENT Work Phone: [facility] 04-23-2023 14:35-0400 Diastolic blood pressure 82 mm[Hg] Vernon Degroot APRN.SIGNING AGENT Work Phone: [facility] 04-23-2023 14:35-0400 Heart rate 94 /min Vernon Degroot APRN.SIGNING AGENT Work Phone: [facility] 04-23-2023 14:35-0400 Respiratory rate 21 /min Vernon Degroot JAMIE.SIGNING AGENT Work Phone: [facility] 04-23-2023 14:35-0400 SaO2% (BldA) [Mass fraction] 99 % Vernon Degroot 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 [employer].SIGNING AGENT Work Phone: [facility] 04-23-2023 14:35-0400 Systolic blood pressure 130 mm[Hg] Vernon King JAMIE.SIGNING AGENT Work Phone: [facility] 04-07-2023 13:09-0400 Body height 152.4 cm Dwayne Lopez MD Work Phone: [facility] 04-07-2023 13:09-0400 Body weight 81.65 kg Dwayne Lopez MD Work Phone: [facility] 04-07-2023 13:09-0400 Diastolic blood pressure 74 mm[Hg] Dwayne Lopez MD Work Phone: [facility] 04-07-2023 13:09-0400 Heart rate 80 /min Dwayne Lopez MD Work Phone: [facility] 04-07-2023 13:09-0400 Respiratory rate 16 /min Dwayne Lopez MD Work Phone: [facility] 04-07-2023 13:09-0400 Systolic blood pressure 112 mm[Hg] Dwayne Lopez MD Work Phone: [facility] 03-28-2023 09:08-0400 Body mass index (BMI) [Ratio] 35.6 kg/m2 Dr. Lizet Linares Work Phone: [facility] 03-28-2023 09:08-0400 Body weight 82.[address] Lizet Linares Work Phone: [facility] 03-28-2023 08:40-0400 Body height 152.[address] Lizet Linares Work Phone: [facility] 03-28-2023 08:40-0400 Body temperature 95 [degF] Dr. Lizet Linares Work Phone: [facility] 03-28-2023 08:40-0400 Diastolic blood pressure 76 mm[Hg] Dr. Lizet Linares Work Phone: [facility] 03-28-2023 08:40-0400 Heart rate 122 /min Dr. Lizet Linares Work Phone: [facility] 03-28-2023 08:40-0400 Respiratory rate 18 /min Dr. Lizet Linares Work Phone: [facility] 03-28-2023 08:40-0400 SaO2% (BldA) [Mass fraction] 100 % Dr. Lizet Linares Work Phone: [facility] 03-28-2023 08:40-0400 Systolic blood pressure 133 mm[Hg] Dr. Lizet Linares Work Phone: [facility] 03-24-2023 10:18-0400 Body weight 83.92 kg Dwayne Lopez MD Work Phone: [facility] 03-24-2023 10:18-0400 Diastolic blood pressure 64 mm[Hg] Dwayne Lopez MD Work Phone: [facility] 03-24-2023 10:18-0400 Heart rate 84 /min Dwayne Lopez MD Work Phone: [facility] 03-24-2023 10:18-0400 Respiratory rate 16 /min Dwayne Lopez MD Work Phone: [facility] 03-24-2023 10:18-0400 Systolic blood pressure 110 mm[Hg] Dwayne Lopez MD Work Phone: [facility] 02-11-2023 13:05-0400 Body height 152.[address] Lizet Linares Work Phone: [facility] 02-11-2023 13:05-0400 Body mass index (BMI) [Ratio] 35.9 kg/m2 Dr. Lizet Linares Work Phone: [facility] 02-11-2023 13:05-0400 Body weight 83.[address] Lizet Linares Work Phone: [facility] 02-11-2023 13:05-0400 Diastolic blood pressure 83 mm[Hg] Dr. Lizet Linares Work Phone: [facility] 02-11-2023 13:05-0400 Heart rate 88 /min Dr. Lizet Linares Work Phone: [facility] 02-11-2023 13:05-0400 Respiratory rate 18 /min Dr. Lizet Linares Work Phone: [facility] 02-11-2023 13:05-0400 SaO2% (BldA) [Mass fraction] 99 % Dr. Lizet Linares Work Phone: [facility] 02-11-2023 13:05-0400 Systolic blood pressure 152 mm[Hg] Dr. Lizet Linares Work Phone: [facility] 01-30-2023 00:39-0400 Body temperature 98 [degF] Dr. Lizet Linares Work Phone: [facility] 01-30-2023 00:39-0400 Diastolic blood pressure 85 mm[Hg] Dr. Lizet Linares Work Phone: [facility] 01-30-2023 00:39-0400 Heart rate 85 /min Dr. Lizet Linares Work Phone: [facility] 01-30-2023 00:39-0400 Respiratory rate 19 /min Dr. Lizet Linares Work Phone: [facility] 01-30-2023 00:39-0400 SaO2% (BldA) [Mass fraction] 97 % Dr. Lizet Linares Work Phone: [facility] 01-30-2023 00:39-0400 Systolic blood pressure 159 mm[Hg] Dr. Lizet Linares Work Phone: [facility] 01-29-2023 22:02-0400 Body mass index (BMI) [Ratio] 36.6 kg/m2 Dr. Lizet Linares Work Phone: [facility] 01-29-2023 22:02-0400 Body weight 85.[address] Lizet Lniares Work Phone: [facility] 01-29-2023 21:18-0400 Body height 152.[address] Lizet Linares Work Phone: [facility] 01-07-2023 15:19-0400 Body mass index (BMI) [Ratio] 36.2 kg/m2 Dr. Ganesh Garcia Work Phone: 5(403)105-642845 [place] [address] 01-07-2023 15:19-0400 Body weight 84.[address] Ganesh Garcia Work Phone: 3(766)228-997645 [place] [address] 01-07-2023 15:17-0400 Body height 152.[address] Ganesh Garcia Work Phone: 0(907)485-166345 [place] [address] 01-07-2023 15:17-0400 Body temperature 96 [degF] Dr. Ganesh Garcia Work Phone: 5(516)040-056745 [place] [address] 01-07-2023 15:17-0400 Diastolic blood pressure 70 mm[Hg] Dr. Ganesh Garcia Work Phone: [facility] 01-07-2023 15:17-0400 Heart rate 95 /min Dr. Ganesh Garcia Work Phone: [facility] 01-07-2023 15:17-0400 Respiratory rate 18 /min Dr. Ganesh Garcia Work Phone: 5(410)434-098545 [place] [address] 01-07-2023 15:17-0400 SaO2% (BldA) [Mass fraction] 99 % Dr. Ganesh Garcia Work Phone: [facility] 01-07-2023 15:17-0400 Systolic blood pressure 143 mm[Hg] Dr. Ganesh Garcia Work Phone: 3(831)377-477786 [place] [address] 01-06-2023 20:30-0400 Diastolic blood pressure 59 mm[Hg] Dr. Ganesh Garcia Work Phone: 3(602)649-291786 [place] [address] 01-06-2023 20:30-0400 Heart rate 84 /min Dr. Ganesh Garcia Work Phone: 9(580)852-046786 [place] [address] 01-06-2023 20:30-0400 Respiratory rate 19 /min Dr. Ganesh Garcia Work Phone: 9(198)557-605786 [place] [address] 01-06-2023 20:30-0400 SaO2% (BldA) [Mass fraction] 94 % Dr. Ganesh Garcia Work Phone: 1(437)903-980086 [place] [address] 01-06-2023 20:30-0400 Systolic blood pressure 145 mm[Hg] Dr. Ganesh Garcia Work Phone: 4(607)313-130186 [place] [address] 01-06-2023 17:40-0400 Body mass index (BMI) [Ratio] 36 kg/m2 Dr. Ganesh Garcia Work Phone: 1(018)465-613186 [place] [address] 01-06-2023 17:40-0400 Body weight 83.[address] Ganesh Garcia Work Phone: 6(953)228-015286 [place] [address] 01-06-2023 17:27-0400 Body temperature 98 [degF] Dr. Ganesh Garcia Work Phone: 6(607)980-635786 [place] [address] 01-06-2023 17:24-0400 Body height 152.[address] Ganesh Garcia Work Phone: 2(966)564-046986 [place] [address] 11-05-2022 05:00-0500 Diastolic blood pressure 75 mm[Hg] Dr. Ganesh Garcia Work Phone: 4(441)096-703786 [place] [address] 11-05-2022 05:00-0500 Heart rate 89 /min Dr. Ganesh Garcia Work Phone: 1(257)389-103186 [place] [address] 11-05-2022 05:00-0500 Respiratory rate 19 /min Dr. Ganesh Garcia Work Phone: 7(526)736-191486 [place] [address] 11-05-2022 05:00-0500 SaO2% (BldA) [Mass fraction] 95 % Dr. Ganesh Garcia Work Phone: 8(901)014-516986 [place] [address] 11-05-2022 05:00-0500 Systolic blood pressure 138 mm[Hg] Dr. Ganesh Garcia Work Phone: 1(917)148-459486 [place] [address] 11-05-2022 01:44-0500 Body height 152.[address] Ganesh Garcia Work Phone: 1(349)701-493386 [place] [address] 11-05-2022 01:44-0500 Body mass index (BMI) [Ratio] 33.7 kg/m2 Dr. Ganesh Garcia Work Phone: 6(856)442-084086 [place] [address] 11-05-2022 01:44-0500 Body temperature 96.7 [degF] Dr. Ganesh Garcia Work Phone: 0(717)983-854686 [place] [address] 11-05-2022 01:44-0500 Body weight 78.[address] Ganesh Garcia Work Phone: 7(050)674-862086 [place] [address] 10-09-2022 04:11-0500 Diastolic blood pressure 67 mm[Hg] Dr. Ganesh Garcia Work Phone: 5(536)807-279286 [place] [address] 10-09-2022 04:11-0500 Heart rate 68 /min Dr. Ganesh Garcia Work Phone: 4(447)860-454986 [place] [address] 10-09-2022 04:11-0500 Respiratory rate 18 /min Dr. Ganesh Garcia Work Phone: 1(390)093-674886 [place] [address] 10-09-2022 04:11-0500 SaO2% (BldA) [Mass fraction] 97 % Dr. Ganesh Garcia Work Phone: 3(322)631-933986 [place] [address] 10-09-2022 04:11-0500 Systolic blood pressure 100 mm[Hg] Dr. Ganesh Garcia Work Phone: 8(924)198-471286 [place] [address] 10-09-2022 01:29-0500 Body height 152.[address] Ganesh Garcia Work Phone: 5(722)244-348586 [place] [address] Work Phone: 10-09-2022 01:29-0500 Body mass index (BMI) [Ratio] 34.3 kg/m2 Dr. Ganesh Garcia Work Phone: 3(623)703-882486 [place] [address] 10-09-2022 01:29-0500 Body temperature 98.6 [degF] Dr. Ganesh Garcia Work Phone: 8(319)567-793486 [place] [address] 10-09-2022 01:29-0500 Body weight 79.[address] Ganesh Garcia Work Phone: 6(233)643-516086 [place] [address] 09-09-2022 13:37-0500 Body height 152.[address] Ganesh Garcia Work Phone: 8(795)561-568386 [place] [address] Work Phone: 09-09-2022 13:37-0500 Diastolic blood pressure 71 mm[Hg] Dr. Ganesh Garcia Work Phone: 9(121)956-477686 [place] [address] 09-09-2022 13:37-0500 Heart rate 88 /min Dr. Ganesh Garcia Work Phone: 1(665)803-765886 [place] [address] 09-09-2022 13:37-0500 Respiratory rate 16 /min Dr. Ganesh Garcia Work Phone: 4(131)535-645686 [place] [address] 09-09-2022 13:37-0500 Systolic blood pressure 101 mm[Hg] Dr. Ganesh Garcia Work Phone: 4(736)995-895886 [place] [address] 08-24-2022 07:19-0400 Diastolic blood pressure 49 mm[Hg] Dr. Ganesh Garcia Work Phone: 6(512)755-021286 [place] [address] 08-24-2022 07:19-0400 Heart rate 65 /min Dr. Ganesh Garcia Work Phone: 6(909)779-693986 [place] [address] 08-24-2022 07:19-0400 Respiratory rate 18 /min Dr. Ganesh Garcia Work Phone: 5(119)829-123786 [place] [address] 08-24-2022 07:19-0400 SaO2% (BldA) [Mass fraction] 93 % Dr. Ganesh Garcia Work Phone: 0(935)589-688286 [place] [address] 08-24-2022 07:19-0400 Systolic blood pressure 107 mm[Hg] Dr. Ganesh Garcia Work Phone: 1(024)783-676386 [place] [address] 08-24-2022 05:17-0400 Inhaled oxygen flow rate 1 L/min Dr. Ganesh Garcia Work Phone: 5(394)131-321186 [place] [address] 08-24-2022 03:19-0400 Body height 152.[address] Ganesh Garcia Work Phone: [facility] Work Phone: 08-24-2022 03:19-0400 Body mass index (BMI) [Ratio] 33.4 kg/m2 Dr. Ganesh Garcia Work Phone: [facility] 08-24-2022 03:19-0400 Body temperature 97.3 [degF] Dr. Ganesh Garcia Work Phone: [facility] 08-24-2022 03:19-0400 Body weight 77.[address] Ganesh Garcia Work Phone: [facility] 06-12-2022 14:13-0400 Body height 152.[address] Jarred Lopez Work Phone: [facility] Work Phone: 06-12-2022 14:12-0400 Body mass index (BMI) [Ratio] 34.7 kg/m2 Dr. Jarred Lopez Work Phone: [facility] Work Phone: 06-12-2022 14:12-0400 Body weight 80.[address] Jarred Lopez Work Phone: [facility] Work Phone: 06-12-2022 14:12-0400 Diastolic blood pressure 58 mm[Hg] Dr. Jarred Lopez Work Phone: [facility] Work Phone: 06-12-2022 14:12-0400 Heart rate 68 /min Dr. Jarred Lopez Work Phone: [facility] Work Phone: 06-12-2022 14:12-0400 Respiratory rate 16 /min Dr. Jarred Lopez Work Phone: [facility] Work Phone: 06-12-2022 14:12-0400 Systolic blood pressure 106 mm[Hg] Dr. Jarred Lopez Work Phone: [facility] Work Phone: 05-21-2022 15:00-0400 Heart rate 73 /min Dr. Jarred Lopez Work Phone: [facility] Work Phone: 05-21-2022 14:55-0400 Diastolic blood pressure 71 mm[Hg] Dr. Jarred Lopez Work Phone: [facility] Work Phone: 05-21-2022 14:55-0400 Heart rate 74 /min Dr. Jarred Lopez Work Phone: [facility] Work Phone: 05-21-2022 14:55-0400 Respiratory rate 16 /min Dr. Jarerd Lopez Work Phone: [facility] Work Phone: 05-21-2022 14:55-0400 SaO2% (BldA) [Mass fraction] 94 % Dr. Jarred Lopez Work Phone: [facility] Work Phone: 05-21-2022 14:55-0400 Systolic blood pressure 112 mm[Hg] Dr. Jarred Lopez Work Phone: [facility] Work Phone: 05-21-2022 14:44-0400 Inhaled oxygen flow rate 2 L/min Dr. Jarred Lopez Work Phone: [facility] Work Phone: 05-21-2022 11:46-0400 Body temperature 98.2 [degF] Dr. Jarred Lopez Work Phone: [facility] Work Phone: 05-21-2022 06:40-0400 Body height 152.[address] Jarred Lopez Work Phone: [facility] Work Phone: 05-21-2022 06:40-0400 Body mass index (BMI) [Ratio] 36.3 kg/m2 Dr. Jarred Lopez Work Phone: [facility] Work Phone: 05-21-2022 06:40-0400 Body weight 84.[address] Jarred Lopez Work Phone: [facility] Work Phone: 05-21-2022 03:08-0400 Body temperature 97.9 [degF] Dr. Jarred Lopez Work Phone: [facility] Work Phone: 05-21-2022 03:08-0400 Diastolic blood pressure 72 mm[Hg] Dr. Jarred Lopez Work Phone: [facility] Work Phone: 05-21-2022 03:08-0400 Heart rate 77 /min Dr. Jarred Lopez Work Phone: [facility] Work Phone: 05-21-2022 03:08-0400 Inhaled oxygen flow rate 2 L/min Dr. Jarred Lopez Work Phone: [facility] Work Phone: 05-21-2022 03:08-0400 Respiratory rate 19 /min Dr. Jarred Lopez Work Phone: [facility] Work Phone: 05-21-2022 03:08-0400 SaO2% (BldA) [Mass fraction] 96 % Dr. Jarred Lopez Work Phone: [facility] Work Phone: 05-21-2022 03:08-0400 Systolic blood pressure 116 mm[Hg] Dr. Jarred Lopez Work Phone: [facility] Work Phone: 05-20-2022 22:05-0400 Body height 152.[address] Jarred Lopez Work Phone: [facility] Work Phone: 05-20-2022 22:05-0400 Body mass index (BMI) [Ratio] 38.9 kg/m2 Dr. Jarred Lopez Work Phone: [facility] Work Phone: 05-20-2022 22:05-0400 Body weight 90.[address] Jarred Lopez Work Phone: [facility] Work Phone: 05-04-2022 00:00-0400 Diastolic blood pressure 61 mm[Hg] Dr. Jarred Lopez Work Phone: [facility] Work Phone: 05-04-2022 00:00-0400 Heart rate 79 /min Dr. Jarred Lopez Work Phone: [facility] Work Phone: 05-04-2022 00:00-0400 Respiratory rate 17 /min Dr. Jarred Lopez Work Phone: [facility] Work Phone: 05-04-2022 00:00-0400 SaO2% (BldA) [Mass fraction] 96 % Dr. Jarred Lopez Work Phone: [facility] Work Phone: 05-04-2022 00:00-0400 Systolic blood pressure 114 mm[Hg] Dr. Jarred Lopez Work Phone: [facility] Work Phone: 05-03-2022 19:54-0400 Body height 152.[address] Jarred Lopez Work Phone: [facility] Work Phone: 05-03-2022 19:54-0400 Body mass index (BMI) [Ratio] 37.8 kg/m2 Dr. Jarred Lopez Work Phone: [facility] Work Phone: 05-03-2022 19:54-0400 Body temperature 97.8 [degF] Dr. Jarred Lopez Work Phone: [facility] Work Phone: 05-03-2022 19:54-0400 Body weight [address] Jarred Lopez Work Phone: [facility] Work Phone: 04-25-2022 15:04-0400 Heart rate 72 /min Dr. Jarred Lopez Work Phone: [facility] Work Phone: 04-25-2022 11:53-0400 Body temperature 97.8 [degF] Dr. Jarred Lopez Work Phone: [facility] Work Phone: 04-25-2022 11:53-0400 Diastolic blood pressure 65 mm[Hg] Dr. Jarred Lopez Work Phone: [facility] Work Phone: 04-25-2022 11:53-0400 Respiratory rate 16 /min Dr. Jarred Lopez Work Phone: [facility] Work Phone: 04-25-2022 11:53-0400 SaO2% (BldA) [Mass fraction] 94 % Dr. Jarred Lopez Work Phone: [facility] Work Phone: 04-25-2022 11:53-0400 Systolic blood pressure 105 mm[Hg] Dr. Jarred Lopez Work Phone: [facility] Work Phone: 04-25-2022 09:47-0400 Inhaled oxygen flow rate 2 L/min Dr. Jarred Lopez Work Phone: [facility] Work Phone: 04-24-2022 17:41-0400 Body height 152.[address] Jarred Lopez Work Phone: [facility] Work Phone: 04-24-2022 17:41-0400 Body mass index (BMI) [Ratio] 35.4 kg/m2 Dr. Jarred Lopez Work Phone: [facility] Work Phone: 04-24-2022 17:41-0400 Body weight 82.[address] Jarred Lopez Work Phone: [facility] Work Phone: 03-30-2022 15:00-0400 Body temperature 97.2 [degF] Dr. Jarred Lopez Work Phone: [facility] Work Phone: 03-30-2022 15:00-0400 Diastolic blood pressure 86 mm[Hg] Dr. Jarred Lopez Work Phone: [facility] Work Phone: 03-30-2022 15:00-0400 Heart rate 81 /min Dr. Jarred Lopez Work Phone: [facility] Work Phone: 03-30-2022 15:00-0400 Respiratory rate 16 /min Dr. Jarred Lopez Work Phone: [facility] Work Phone: 03-30-2022 15:00-0400 SaO2% (BldA) [Mass fraction] 96 % Dr. Jarred Lopez Work Phone: [facility] Work Phone: 03-30-2022 15:00-0400 Systolic blood pressure 114 mm[Hg] Dr. Jarred Lopez Work Phone: [facility] Work Phone: 03-28-2022 13:35-0400 Inhaled oxygen flow rate 2 L/min Dr. Jarred Lopez Work Phone: [facility] Work Phone: 03-20-2022 18:30-0400 Body temperature 97.1 [degF] Dr. Jarred Lopez Work Phone: [facility] Work Phone: 03-20-2022 18:30-0400 Diastolic blood pressure 89 mm[Hg] Dr. Jarred Lopez Work Phone: [facility] Work Phone: 03-20-2022 18:30-0400 Heart rate 80 /min Dr. Jarred Lopez Work Phone: [facility] Work Phone: 03-20-2022 18:30-0400 Respiratory rate 16 /min Dr. Jarred Lopez Work Phone: [facility] Work Phone: 03-20-2022 18:30-0400 SaO2% (BldA) [Mass fraction] 100 % Dr. Jarred Lopez Work Phone: [facility] Work Phone: 03-20-2022 18:30-0400 Systolic blood pressure 137 mm[Hg] Dr. Jarred Lopez Work Phone: [facility] Work Phone: 03-20-2022 18:20-0400 Body height 152.[address] Jarred Lopez Work Phone: [facility] Work Phone: 03-20-2022 18:20-0400 Body mass index (BMI) [Ratio] 32.3 kg/m2 Dr. Jarred Lopez Work Phone: [facility] Work Phone: 03-20-2022 18:20-0400 Body weight [address] Jarred Lopez Work Phone: [facility] Work Phone: 02-24-2022 16:22-0400 Heart rate 84 /min [facility] Work Phone: 02-24-2022 16:22-0400 Respiratory rate 16 /min [facility] Work Phone: 02-24-2022 16:22-0400 SaO2% (BldA) [Mass fraction] 97 % [facility] Work Phone: 02-24-2022 15:40-0400 Diastolic blood pressure 60 mm[Hg] [facility] Work Phone: 02-24-2022 15:40-0400 Systolic blood pressure 108 mm[Hg] [facility] Work Phone: 02-24-2022 13:02-0400 Body height 152.4 cm [facility] Work Phone: 02-24-2022 13:02-0400 Body mass index (BMI) [Ratio] 29.7 kg/m2 [facility] Work Phone: 02-24-2022 13:02-0400 Body temperature 97.6 [degF] [facility] Work Phone: 02-24-2022 13:02-0400 Body weight 68.94 kg [facility] Work Phone: 01-13-2022 19:41-0400 Diastolic blood pressure 70 mm[Hg] [facility] Work Phone: 01-13-2022 19:41-0400 Heart rate 74 /min [facility] Work Phone: 01-13-2022 19:41-0400 Respiratory rate 17 /min [facility] Work Phone: 01-13-2022 19:41-0400 SaO2% (BldA) [Mass fraction] 97 % [facility] Work Phone: 01-13-2022 19:41-0400 Systolic blood pressure 95 mm[Hg] [facility] Work Phone: 01-13-2022 14:20-0400 Body height 152.4 cm [facility] Work Phone: 01-13-2022 14:20-0400 Body mass index (BMI) [Ratio] 29.7 kg/m2 [facility] Work Phone: 01-13-2022 14:20-0400 Body temperature 97.3 [degF] [facility] Work Phone: 01-13-2022 14:20-0400 Body weight 68.94 kg [facility] Work Phone: 09-27-2021 14:38-0500 Body mass index (BMI) [Ratio] 28.7 kg/m2 [facility] Work Phone: 09-27-2021 14:38-0500 Body temperature 96.6 [degF] [facility] Work Phone: 09-27-2021 14:38-0500 Body weight 66.67 kg [facility] Work Phone: 09-27-2021 14:38-0500 Diastolic blood pressure 80 mm[Hg] [facility] Work Phone: 09-27-2021 14:38-0500 Heart rate 100 /min [facility] Work Phone: 09-27-2021 14:38-0500 Respiratory rate 16 /min [facility] Work Phone: 09-27-2021 14:38-0500 SaO2% (BldA) [Mass fraction] 100 % [facility] Work Phone: 09-27-2021 14:38-0500 Systolic blood pressure 154 mm[Hg] [facility] Work Phone: 07-28-2017 17:13-0400 BMI (Body Mass Index) 32.38 kg/m2 Angelika De La Torre LPN [facility] Work Phone: 07-28-2017 17:13-0400 Body Temperature 98.3 [degF] Angelika De La Torre LPN [facility] Work Phone: 07-28-2017 17:13-0400 BP Diastolic 76 mm[Hg] Angelika De La Torre LPN [facility] Work Phone: 07-28-2017 17:13-0400 BP Systolic 124 mm[Hg] Angelika De La Torre LPN [facility] Work Phone: 07-28-2017 17:13-0400 Height 152.4 cm Angelika De La Torre LPN [facility] Work Phone: 07-28-2017 17:13-0400 Pulse (Heart Rate) 72 /min Angelika De La Torre LPN [facility] Work Phone: 07-28-2017 17:13-0400 Respiratory Rate 15 /min Angelika De La Torre LPN [facility] Work Phone: 07-28-2017 17:13-0400 Weight 75.21 kg Angelika De La Torre LPN [facility] Work Phone: 02-04-2012 09:28-0400 BSA (Body Surface Area) 1.75 m2 Angelika De La Torre LPN [facility] Work Phone: Encounters Encounter Date Encounter Type Care Provider Facility Start: 05-07-2025 ambulatory Lizet Harman cility:[facility] Start: 05-07-2025 Registered Referred Lizet Linares MD [facility] Start: 05-03-20[facility] Start: 04-25-2025 ambulatory Lizet Harman cility:[facility] Start: 04-25-2025 [facility] Start: 04-20-2025 End: 04-20-[address] Lizet Linares MD Work Phone: [facility] Start: 04-20-2025 End: 04-20-2025 Patient encounter procedure Ana Maria Geller [employer]-C -[facility] Work Phone: Start: 04-12-2025 ambulatory Efewongbe Oleghe Facili ty:[facility] Start: 04-12-2025 Registered Referred Lizet Linares MD [facility] Start: 04-12-2025 End: 04-12-[address] Lizet Linares MD Work Phone: [facility] Start: 04-12-2025 End: 04-12-2025 Patient encounter procedure Claude REYNOLDS -[facility] Work Phone: Start: 04-06-2025 ambulatory Efewongbe Oleghe Facili ty:[facility] Start: 04-06-2025 Registered Referred Lizet Linares MD [facility] Start: 03-29-2025 ambulatory Efewongbe Oleghe Facili ty:[facility] Start: 03-29-2025 Registered Referred Lizet Linares MD [facility] Start: 03-27-2025 End: 03-27-[address] Lizet Linares MD Work Phone: [facility] Start: 03-27-2025 End: 03-27-[address] Lizet Linares MD -[facility] Work Phone: Start: 03-21-2025 End: 04-12-2025 ambulatory Dwayne Lopez MD Work Phone: [address] [place] [address] Comment on above: Diabetes Start: 03-20-2025 End: 03-20-2025 ambulatory Dwayne Lopez MD Work Phone: [facility] Start: 03-20-2025 End: 03-20-2025 Patient encounter procedure Dwayne Lopez MD Work Phone: [facility] Comment on above: Population Health Na vigation Outreach ([facility] ) Start: 03-13-2025 End: 03-13-[address] Lizet Linares MD Work Phone: [facility] Start: 03-13-2025 End: 03-13-2025 Patient encounter procedure Ana Maria Yimi [employer]ER-[facility] Work Phone: Start: 03-12-2025 End: 03-12-[address] Lizet Linares MD Work Phone: [facility] Work Phone: Start: 03-12-2025 End: 03-12-2025 Departed Referred Lizet Linares MD -[facility] Start: 03-12-2025 End: 03-12-2025 ambulatory Lizet Linares Facility:[facility] Start: 03-08-2025 End: 03-08-[address] Lizet Linares MD Work Phone: [facility] Start: 03-08-2025 End: 03-08-2025 Patient encounter procedure Ana Maria Geller [facility] Work Phone: Start: 03-05-2025 End: 03-05-2025 Patient encounter procedure Ana Mariatom Geller [facility] Work Phone: Start: 03-05-2025 End: 03-05-[address] Lizet Linares MD Work Phone: [facility] Start: 03-05-2025 Registered Referred Ana Maria Geller NP-C -[facility] Start: 02-26-2025 End: 02-26-[address] Lizet Linares MD Work Phone: [facility] Start: 02-26-2025 End: 02-26-2025 Patient encounter procedure Ana Maria Geller [employer]-[facility] Work Phone: Start: 02-12-2025 End: 02-12-2025 ambulatory [facility] Work Phone: [facility] Start: 02-12-2025 End: 02-12-2025 Patient encounter procedure Elizabeth Jennings [facility] Work Phone: [facility] Start: 02-06-2025 End: 03-09-2025 ambulatory Dwayne Lopez MD Work Phone: [facility] Start: 01-30-2025 End: 01-30-2025 Patient encounter procedure Shonda Chávez ND -[facility] Work Phone: Start: 01-30-2025 End: 01-30-2025 ambulatory Efewongbe Oleghe Facility:[facility] Start: 01-23-2025 End: 01-23-2025 ambulatory Efewongbe Oleghe Facility:[facility] Start: 01-23-2025 End: 01-23-[address] Lizet Linares MD -[facility] Work Phone: Start: 01-22-2025 End: 01-22-2025 ambulatory Efewmccaskillbe Olee Facility:[facility] Start: 01-22-2025 End: 01-22-2025 Patient encounter procedure Ana Maria MOODY -[facility] Work Phone: Start: 01-22-2025 End: 01-22-2025 [facility] Work Phone: Start: 01-22-2025 End: 01-22-2025 Dr. Lizet Linares MD Work Phone: -Emergency Department Work Phone: Start: 01-22-2025 End: 01-22-2025 Emergency department patient visit Dr. Lizet Linares MD Work Phone: [facility] Work Phone: Start: 01-05-2025 End: 01-05-2025 ambulatory Dwayne Lopez MD Work Phone: [facility] Comment on above: Allied Health Visit (Medication Adherence Outreach/) Start: 01-05-2025 End: 01-05-2025 [facility] Start: 01-05-2025 End: 01-05-2025 [facility] Start: 01-04-2025 End: 01-05-2025 ambulatory Hollystacey Crosspreet Facility:[facility] Start: 01-04-2025 End: 01-04-2025 Patient encounter procedure Claude REYNOLDS [facility] Work Phone: Start: 01-04-2025 End: 01-04-2025 Claude REYNOLDS [facility] Work Phone: Start: 12-07-2024 ambulatory Juniemarcelle Linares OLS Fa cility:[facility] Start: 12-07-2024 [facility] Start: 12-07-2024 Lizet Linares MD [facility] Start: 11-30-2024 ambulatory Hollystacey Linares OLS Fa cility:[facility] Start: 11-30-2024 [facility]: [facility] Start: 11-29-2024 End: 11-29-2024 [facility] Start: 11-29-2024 End: 11-29-2024 [facility] Comment on above: Population Health Na vigation Outreach ([facility]) Start: 11-28-2024 End: 11-28-2024 ambulatory Hollyjanellnatasha Milagros Facility:[facility] Start: 11-28-2024 End: 11-28-[address] Lizet Linares MD -[facility] Work Phone: Start: 11-28-2024 End: 11-28-2024 Dr. Lizet Linares MD -[facility] Work Phone: Start: 11-24-2024 ambulatory Efewongbe Oleghe OLS Fa cility:[facility] Start: [facility]-24-20[facility] Start: 11-17-2024 End: 11-17-2024 Lizet Linares MD [facility] Start: 11-17-2024 End: 11-17-2024 ambulatory Efewongbe Olejne OLS Facility:[facility] Start: 11-10-2024 End: 11-10-2024 Lizet Linares MD [facility] Start: 11-10-2024 End: 11-10-2024 ambulatory Efewongbe Tayghe Facility:[facility] Start: 11-03-2024 ambulatory Efewongbe Oleghe Facili ty:[facility] Start: 11-03-2024 Lizet Linares MD [facility] Start: 11-01-2024 End: 11-01-2024 Lizet Linares MD [facility] Start: 11-01-2024 End: 11-01-2024 ambulatory Efewongbe Oleghe Facility:[facility] Start: 10-27-2024 End: 10-27-2024 ambulatory Efewongbe Oleghe Facility:[facility] Start: 10-27-2024 End: 10-27-2024 Ana Maria MOODY -[facility] Work Phone: Start: 10-24-2024 End: 10-24-2024 Dr. [facility] Start: 10-24-2024 End: 10-24-2024 Emergency department patient visit Efchristaongbe Germane Facility:[facility] Start: 10-20-2024 ambulatory Efewongbe Oleghe Facili ty:[facility] Start: 10-20-2024 Lizet Linares MD [facility] Start: 10-13-2024 ambulatory Efewongbe Oleghe Facili ty:[facility] Start: 10-13-2024 Lizet Linares MD [facility] Start: 10-06-2024 ambulatory Efmarcelle Portere Facili ty:[facility] Start: 10-06-2024 End: 10-06-2024 Lizet Linares MD [facility] Start: 10-06-2024 End: 10-06-2024 ambulatory Lizet Portere Facility:[facility] Start: 09-29-2024 End: 09-29-2024 Lizet Linares MD [facility] Start: 09-29-2024 End: 09-29-2024 ambulatory Hollyongnatasha Portere Facility:[facility] Start: 09-26-2024 End: 09-27-2024 ambulatory Efmarcelle Portere Facility:[facility] Start: 09-26-2024 End: 09-27-2024 Dr. Lizet Linares MD -[facility] Work Phone: Start: 09-22-2024 End: 09-22-2024 ambulatory Lizet Portere Facility:[facility] Start: 09-20-2024 End: 09-20-2024 ambulatory Lizet Portere OLS Facility:[facility] Start: 09-15-2024 End: 09-15-2024 ambulatory Efmarcelle Portere OLS Facility:[facility] Start: 09-13-2024 End: 09-13-2024 ambulatory Lizet Portere Facility:[facility] Start: 09-08-2024 End: 09-08-2024 ambulatory Irena Wild [facility] Start: 09-08-2024 End: 09-08-2024 Patient encounter procedure Irena Wild [facility] Comment on above: Population Health Na vigation Outreach (Vinh Dykes PCP ) Start: 09-08-2024 End: 09-08-2024 ambulatory Efewongbe Tayghe OLS Facility:[facility] Start: 09-01-2024 ambulatory Efewongbe Germane OLS Fa cility:[facility] Start: 08-25-2024 End: 08-25-2024 ambulatory Daniel Sarabiaey Facility:[facility] Start: 08-19-2024 End: 08-20-2024 Emergency department patient visit Raúl Alejo Facility:[facility] Start: 08-18-2024 End: 08-18-2024 ambulatory Efewmccaskillbe Germane Facility:[facility] Start: 08-11-2024 End: 08-11-2024 ambulatory Efewongbe Germane OLS Facility:[facility] Start: 08-04-2024 ambulatory Efewongbe Oleghe OLS Fa cility:[facility] Start: 08-02-2024 End: 08-02-2024 ambulatory Efewongbe Oleghe Facility:[facility] Start: 08-01-2024 End: 08-01-2024 ambulatory Efewmccaskillbe Oleghe Facility:[facility] Start: 07-28-2024 ambulatory Efewongbe Tayghe OLS Fa cility:[facility] Start: 07-21-2024 ambulatory Efewmccaskillbe Tayghe OLS Fa cility:[facility] Start: 07-14-2024 ambulatory Efewmccaskillbe Oleghe OLS Fa cility:[facility] Start: 07-08-2024 End: 07-08-2024 Emergency department patient visit Salvador Campbell Facility:[facility] Start: 07-07-2024 ambulatory Efewongbe Tayghe OLS Fa cility:[facility] Start: 07-04-2024 End: 07-04-2024 ambulatory Efchristaongbe Germane Facility:[facility] Start: 06-28-2024 ambulatory Efewongbe Oleghe OLS Fa cility:[facility] Start: 06-23-2024 ambulatory Efewongbe Oleghe OLS Fa cility:[facility] Start: 06-20-2024 ambulatory Napoleon Friend Facility :[facility] Start: 06-20-2024 End: 06-20-2024 ambulatory Napoleon Friend Facility:[facility] Start: 06-16-2024 ambulatory Efewmccaskillbe Oleghe OLS Fa cility:[facility] Start: 06-13-2024 End: 06-13-2024 ambulatory [facility] O[facility] Facility:[facility] Start: 06-11-2024 End: 06-12-2024 Emergency department patient visit Lizet Linares Facility:[facility] Start: 06-08-2024 End: 06-09-2024 ambulatory Lizet Linares OLS Facility:[facility] Start: 06-06-2024 End: 06-06-2024 ambulatory Lizet Linares Facility:[facility] Start: 06-05-2024 End: 06-05-2024 ambulatory Lizet Linares OLS Facility:[facility] Start: 06-01-2024 End: 06-02-2024 ambulatory Jacqueline Renteria Facility:[facility] Start: 05-31-2024 End: 05-31-2024 ambulatory Lizet Linares Facility:[facility] Start: 05-26-2024 End: 05-26-2024 ambulatory Lizet NOLASCO Facility:[facility] Start: 04-06-2024 ambulatory Mel Peacock RN Work Phone: [employer] Comment on above: ACM TIARA RN Start: 03-28-2024 ambulatory Mel Peacock RN Work Phone: [employer] [facility] [employer] Start: 03-21-2024 Refill Dwayne Lopez MD Work Phone: [facility] Comment on above: Refill Request Start: 03-08-2024 ambulatory Dwayne Lopez MD Work Phone: [facility] [place] Start: 02-25-2024 Dr. Jarred Lopez Work Phone: [facility] Start: 02-18-2024 End: 02-18-[address] Jarred Lopez Work Phone: [facility] Work Phone: Start: 02-18-2024 End: 02-18-2024 Dr. Jarred Lopez Work Phone: [facility] Start: 02-17-2024 ambulatory [facility] Start: 02-17-2024 Patient encounter procedure Annabel Agrawal MA [facility] Comment on above: Population Health Na vigation Outreach ([place] [facility] 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 - AWV, Care gaps, HCC gap closure - [facility]) Start: 02-11-2024 End: 02-11-[address] Jarred Lopez Work Phone: [facility] Work Phone: Start: 02-11-2024 End: 02-11-2024 Dr. Jarred Lopez Work Phone: [facility] Start: 02-10-2024 ambulatory Dwayne Lopez MD Work Phone: [facility] Comment on above: Allied Health Visit (Medication Adherence Outreach ) Start: 02-09-2024 Dr. Jarred Lopez Work Phone: [facility] Start: 02-04-2024 End: 02-04-[address] Jarred Lopez Work Phone: [facility] Work Phone: Start: 02-04-2024 End: 02-04-2024 Dr. Jarred Lopez Work Phone: [facility] Start: 02-02-2024 End: 02-02-[address] Jarred Lopez Work Phone: [facility] Work Phone: Start: 02-02-2024 End: 02-02-2024 Dr. Jarred Lopez Work Phone: [facility] Start: 02-01-2024 End: 02-01-2024 Dr. Jrared Lopez Work Phone: [facility] Work Phone: Start: 01-28-2024 Dr. Jarred Lopez Work Phone: [facility] Start: 01-24-2024 Telephone encounter Jarred Lopez MD Work Phone: [facility] Comment on above: Appointment Start: 01-21-2024 Dr. Jarred Lopez Work Phone: [facility] Start: 01-20-2024 End: 01-20-2024 Emergency department patient visit Dr. Jarred Lopez Work Phone: [facility] Work Phone: Start: 01-20-2024 End: 01-20-2024 Dr. Jarred Lopez Work Phone: [facility]-Emergency Department Work Phone: Start: 01-19-2024 Dr. Jarred Lopez Work Phone: [facility] Start: 01-17-2024 Dr. Jarred Lopez Work Phone: [facility] Start: 01-14-2024 Dr. Jarred Lopez Work Phone: [phone] [place] [address] Start: 01-12-2024 Dr. Jarred Lopez Work Phone: [facility] Start: 01-07-2024 Dr. Jarred Lopez Work Phone: [facility] Start: 01-06-2024 ambulatory Rachel Perea LPN [facility] Start: 01-06-2024 Telephone encounter Jarred Lopez MD Work Phone: [facility] Comment on above: Appointment (Hospita l follow up (40 min as patient hasn't followed up as advised either LEA March 2023)) Transition Of Care Start: 01-05-2024 Dr. Jarred Lopez Work Phone: [facility] Work Phone: Start: 01-04-2024 Dr. Jarred Lopez Work Phone: [facility] Work Phone: Start: 01-03-2024 Dr. Jarred Lopez Work Phone: [facility] Work Phone: Start: 01-03-2024 Non-patient / Non-visit Dr. Adriana Lopez Work Phone: [facility] Start: 01-03-2024 Dr. Jarred Lopez Work Phone: [facility] Start: 01-02-2024 Non-patient / Non-visit Dr. Adriana Lopez Work Phone: [facility] Work Phone: Start: 01-02-2024 Dr. Jarred Lopez Work Phone: [facility] Work Phone: Start: 01-01-2024 Evaluation and manag ement of inpatient Dr. Jarred Lopez Work Phone: [facility]-Pro[facility] Unit Work Phone: Start: 01-01-2024 End: 01-05-[address] Jarred Lopez Work Phone: [facility] Work Phone: Start: 01-01-2024 End: 01-05-2024 Dr. Jarred Lopez Work Phone: [facility] Work Phone: Start: 12-31-2023 End: 12-31-[address] Jarred Lopez Work Phone: [facility] Work Phone: Start: 12-31-[address] Luis Carlos Lopez Work Phone: [facility] Start: 12-31-2023 End: 12-31-2023 Dr. Jarred Lopez Work Phone: [facility] Start: 12-29-2023 End: 12-29-[address] Jarred Lopez Work Phone: [facility] Work Phone: Start: 12-29-[address] Luis Carlos Lopez Work Phone: [facility] Start: 12-29-2023 End: 12-29-2023 Dr. Jarred Lopez Work Phone: [facility] Start: 12-24-2023 End: 12-24-[address] Jarred Lopez Work Phone: [facility] Work Phone: Start: 12-24-[address] Luis Carlos Lopez Work Phone: [facility] Start: 12-24-2023 End: 12-24-2023 Dr. Jarred Lopez Work Phone: [facility] Start: 12-17-2023 End: 12-17-[address] Jarred Lopez Work Phone: [facility] Work Phone: Start: 12-17-2023 End: 12-17-[address] Jarred Lopez Work Phone: [facility] Start: 12-17-[address] Luis Carlos Lopez Work Phone: [facility] Start: 12-17-2023 End: 12-17-2023 Dr. Jarred Lopez Work Phone: [phone] [place] [address] Start: 12-10-[address] Luis Carlos Lopez Work Phone: [facility] Start: 12-10-2023 Dr. Jarred Lopez Work Phone: [facility] Start: 12-07-2023 End: 12-07-2023 Dr. Jarred Lopez Work Phone: [facility] Work Phone: Start: 11-26-[address] Luis Carlos Lopez Work Phone: [facility] Start: 11-26-2023 Dr. Jarred Lopez Work Phone: [facility] Start: 11-25-2023 End: 11-25-2023 Dr. Jarred Lopez Work Phone: [facility] Work Phone: Start: 11-24-2023 Non-patient / Non-visit Dr. Adriana Lopez Work Phone: [facility] Work Phone: Start: 11-24-2023 Dr. Jarred Lopez Work Phone: [facility] Work Phone: Start: 11-23-2023 Non-patient / Non-visit Dr. Adriana Lopez Work Phone: [facility] Work Phone: Start: 11-23-2023 Dr. Jarred Lopez Work Phone: [facility] Work Phone: Start: 11-22-2023 Non-patient / Non-visit Dr. Adriana Lopez Work Phone: [facility] Work Phone: Start: 11-22-2023 Dr. aJrred Lopez Work Phone: [facility] Work Phone: Start: 11-21-2023 Non-patient / Non-visit Dr. Adriana Lopez Work Phone: [facility] Work Phone: Start: 11-21-2023 Dr. Jarred Lopez Work Phone: [facility] Work Phone: Start: 11-20-2023 Non-patient / Non-visit Dr. Adriana Lopez Work Phone: [facility] Work Phone: Start: 11-20-2023 Dr. Jarred Lopez Work Phone: [facility] Work Phone: Start: 11-19-2023 Non-patient / Non-visit Dr. Adriana Lopez Work Phone: [facility] Work Phone: Start: 11-19-2023 End: 11-24-2023 Evaluation and management of inpatient Dr. Jarred Lopez Work Phone: [facility] Work Phone: Start: 11-19-[address] Lincoln Lopez Work Phone: [facility] Work Phone: Start: 11-19-2023 End: 11-24-2023 Dr. Jarred Lopez Work Phone: [facility] Work Phone: Start: 09-20-2023 ambulatory Dwayne Lopez MD Work Phone: [facility] Comment on above: Allied Health Visit (Medication Adherence Outreach ) Start: 08-20-2023 ambulatory Dwayne Lopez MD Work Phone: [facility] Comment on above: Allied Health Visit (Medication Adherence Outreach ) Start: 08-18-2023 ambulatory Irenameliton Hood [facility] Comment on above: Population Health Na vigation Outreach ([place] care gaps ) Refill Request Start: 06-10-2023 End: 06-10-2023 Emergency department patient visit [facility]. Ganesh Garcia [facility]: Start: 06-10-2023 ambulatory Dwayne Lopez MD Work Phone: [facility] Comment on above: Constipation Start: 06-07-2023 Telephone encounter Jarred Lopez MD Work Phone: [facility] Comment on above: Appointment (ER foll ow up visit) Start: 06-06-2023 End: 06-06-2023 Emergency department patient visit Dr. Ganesh Garcia [facility] Work [facility]: Start: 06-04-2023 End: 06-04-2023 Emergency department patient visit Dr. Ganesh Garcia [facility]: Start: 05-20-2023 ambulatory Dwayne Lopez MD Work Phone: [facility] Comment on above: Allied Health Visit (Medication Adherence Outreach/) Refill Request Start: 05-04-2023 ambulatory Dwayne Lopez MD Work Phone: [facility] Start: 04-23-2023 End: 04-23-2023 Patient encounter procedure Vernon Degroot APRN.SIGNING AGENT Work Phone: [facility] Comment on above: Toothache (Primary D x) Start: 04-08-2023 ambulatory Pcp (Historical) [facility] Start: 04-07-2023 Telephone encounter Jarred Lopez MD Work Phone: [facility] Comment on above: Appointment Start: 04-07-2023 End: 04-07-2023 Patient encounter procedure Dwayne Lopez MD Work Phone: [facility] Comment on above: Generalized weakness (Primary Dx); Acute constipation; Diabetes mellitus type 2 with neurological manifestations (HCC); Diabetic polyneuropathy associated with type 2 diabetes mellitus (HCC); Hyperlipidemia associated with type 2 diabetes mellitus (HCC); Change in vision; Globus sensation; Onychomycosis; Acquired hypothyroidism; Screening for colon cancer; Encounter for immunization; Stage 3a chronic kidney disease (HCC); Hyperparathyroidism (HCC); Opioid dependence, continuous ([facility]) Start: 03-28-2023 End: 03-28-2023 Emergency department patient visit Dr. Lizet Linares Work Phone: [facility] Start: 03-24-2023 End: 03-24-2023 Patient encounter procedure Dwayne Lopez MD Work Phone: [facility] Comment on above: Globus sensation (Pr imary Dx); Gastroesophageal reflux disease, unspecified whether esophagitis present Start: 03-17-2023 End: 03-17-[address] Ganesh Garcia Work Phone: [facility] Work Phone: Start: 03-16-2023 End: 03-16-[address] Lizet Linares Work Phone: [facility] Work Phone: Start: 03-16-2023 End: 03-16-[address] Lizet Linares Work Phone: [facility] Start: 03-09-2023 End: 03-09-[address] Ganesh Garcia Work Phone: [facility] Work Phone: Start: 03-02-2023 End: 03-02-[address] Lizet Linares Work Phone: [facility] Start: 03-01-2023 End: 03-01-[address] Lizet Umana Phone: [facility]Labor[facility] Start: 02-23-2023 ambulatory No Pcp [facility] Comment on above: Allied Health Visit (Medication Adherence Outreach ) Start: 02-16-2023 End: 02-16-[address] Lizet Umana Phone: [facility] Start: 02-11-2023 End: 02-11-[address] Lizet Umana Phone: [facility] Start: 02-02-2023 End: 02-02-[address] Lizet Umana Phone: [facility] Start: 02-02-2023 Dr. Lizet Umana Phone: [facility] Start: 01-30-2023 End: 01-30-[address] Lizet Umana Phone: [facility] Start: 01-29-2023 End: 01-30-2023 Emergency department patient visit Dr. Lizet Linares Work Phone: [facility] Start: 01-29-2023 End: 01-30-2023 Dr. Lizet Umana Phone: [facility] Start: 01-26-2023 End: 01-26-[address] Lizet Umana Phone: [facility] Work Phone: Start: 01-26-2023 End: 01-26-[address] Lizet Linares Work Phone: [facility] Start: 01-26-2023 End: 01-26-2023 Dr. Lizet Linares Work Phone: [facility] Start: 01-19-2023 End: 01-19-[address] Lizet Linares Work Phone: [facility] Work Phone: Start: 01-19-2023 End: 01-19-[address] Lizet Linares Work Phone: [facility] Start: 01-19-[address] Shadia Linares Work Phone: [facility] Start: 01-19-2023 End: 01-19-2023 Dr. Lizet Linares Work Phone: [facility] Start: 01-18-2023 End: 01-18-[address] Lizet Linares Work Phone: [facility] Work Phone: Start: 01-18-2023 End: 01-18-[address] Lizet Linares Work Phone: [facility] Start: 01-18-2023 End: 01-18-2023 Dr. Lizet Linares Work Phone: [facility] Start: 01-08-2023 End: 01-08-[address] Lizet Linares Work Phone: [facility] Start: 01-08-2023 End: 01-08-2023 Dr. Lizet Linares Work Phone: [facility] Start: 01-07-2023 End: 01-07-[address] Lizet Linares Work Phone: [facility] Start: 01-07-2023 End: 01-07-2023 Dr. iLzet Linares Work Phone: [facility] Start: 01-07-2023 End: 01-07-2023 Emergency department patient visit Dr. Ganesh Garcia Work Phone: [facility] Work Phone: Start: 01-07-2023 End: 01-07-2023 Dr. Ganesh Garcia Work Phone: [facility] Start: 01-06-2023 End: 01-06-2023 Emergency department patient visit Dr. Ganesh Garcia Work Phone: [facility] Work Phone: Start: 01-06-2023 End: 01-06-2023 Dr. Ganesh Garcia Work Phone: [facility] Start: 01-05-2023 End: 01-05-[address] Lizet Linares Work Phone: [facility] Start: 01-05-2023 End: 01-05-[address] Lizet Linares Work Phone: [facility] Work Phone: Start: 01-05-2023 End: 01-05-[address] Lizet Linares Work Phone: [facility] Start: 01-05-2023 End: 01-05-2023 Dr. Ganesh Garcia Work Phone: [facility] Start: 01-04-2023 End: 01-04-[address] Lizet Linares Work Phone: [facility] Start: 01-04-2023 End: 01-04-2023 Dr. Lizet Linares Work Phone: [facility] Start: 01-01-2023 ambulatory Donnell Burr [facility] Work Phone: [employer] Comment on above: Medication Update (S tatin use review ) Start: 12-28-2022 End: 12-28-[address] Lizet Linares Work Phone: [facility] Work Phone: Start: 12-28-2022 End: 12-28-[address] Lizet Linares Work Phone: [facility] Start: 12-28-2022 End: 12-28-2022 Dr. Ganesh Garcia Work Phone: [facility] Start: 12-24-2022 End: 12-24-[address] Lizet Linares Work Phone: [facility] Start: 12-24-2022 End: 12-24-2022 Dr. Lizet Linares Work Phone: [facility] Start: 12-23-2022 End: 12-23-[address] Lizet Linares Work Phone: [facility] Work Phone: Start: 12-23-2022 End: 12-23-[address] Lizet Linares Work Phone: [facility] Start: 12-23-2022 End: 12-23-2022 Dr. Ganesh Garcia Work Phone: [facility] Start: 12-22-2022 End: 12-22-[address] Lizet Linares Work Phone: [facility] Work Phone: Start: 12-22-2022 End: 12-22-[address] Lizet Linares Work Phone: [facility] Start: 12-22-2022 End: 12-22-2022 Dr. Ganesh Garcia Work Phone: [facility] Start: 12-21-2022 End: 12-21-[address] Lizet Linares Work Phone: [facility] Start: 12-21-2022 End: 12-21-2022 Dr. Ganesh Garcia Work Phone: [facility] Start: 12-14-2022 End: 12-14-[address] Lizet Linares Work Phone: [facility] Work Phone: Start: 12-14-2022 End: 12-14-[address] Lizet Linares Work Phone: [facility] Start: 12-14-2022 End: 12-14-2022 Dr. Ganesh Garcia Work Phone: [facility] Start: 12-09-2022 Non-patient / Non-visit Dr. Barbara Garcia Work Phone: [facility] Start: 12-09-2022 Dr. Ganesh hatch Work Phone: [facility] Start: 12-08-2022 End: 12-08-[address] Lizet Linares Work Phone: [facility] Start: 12-08-2022 End: 12-08-[address] Lizet Linares Work Phone: [facility] Start: 12-08-[address] Ganesh horne Work Phone: [facility] Start: 12-08-2022 End: 12-08-2022 Dr. Ganesh Garcia Work Phone: [facility] Start: 11-24-2022 End: 11-24-[address] Ganesh Garcia Work Phone: [facility] Work Phone: Start: 11-24-2022 End: 11-24-[address] Ganesh Garcia Work Phone: [facility] Start: 11-24-2022 End: 11-24-2022 Dr. Ganesh Garcia Work Phone: [phone] [place] [address] Start: 11-10-2022 End: 11-10-[address] Ganesh Garcia Work Phone: [facility] Start: 11-10-2022 End: 11-10-2022 Dr. Ganesh Garcia Work Phone: [facility] Start: 11-10-2022 End: 11-10-[address] Ganesh Garcia Work Phone: [facility] Work Phone: Start: 11-10-2022 End: 11-10-[address] Ganesh Garcia Work Phone: [facility] Start: 11-10-[address] Ganesh horne Work Phone: [facility] Start: 11-10-2022 End: 11-10-2022 Dr. Ganesh Garcia Work Phone: [facility] Start: 11-09-2022 End: 11-09-[address] Ganesh Garcia Work Phone: [facility] Start: 11-09-2022 End: 11-09-2022 Dr. Ganesh Garcia Work Phone: [facility] Start: 11-05-2022 End: 11-05-[address] Ganesh Garcia Work Phone: [facility] Start: 11-05-2022 End: 11-05-2022 Dr. Ganesh Garcia Work Phone: [facility] Start: 11-05-2022 End: 11-05-2022 Emergency department patient visit Dr. Ganesh Garcia Work Phone: [facility] Start: 11-05-2022 End: 11-05-2022 Dr. Ganesh Garcia Work Phone: [phone] [place] [address]-Emergency Department Start: 10-30-2022 End: 10-30-[address] Ganesh Garcia Work Phone: [facility] Work Phone: Start: 10-30-2022 End: 10-30-[address] Ganesh Garcia Work Phone: [phone] [place] [address] Start: 10-30-[address] Ganesh horne Work Phone: [phone] [place] [address] Start: 10-30-2022 End: 10-30-2022 Dr. Ganesh Garcia Work Phone: [facility] Start: 10-28-2022 End: 10-28-[address] Ganesh Garcia Work Phone: [facility] Start: 10-28-2022 End: 10-28-2022 Dr. Ganesh Garcia Work Phone: [facility] Start: 10-27-2022 End: 10-27-[address] Ganesh Garcia Work Phone: [facility] Work Phone: Start: 10-27-2022 End: 10-27-[address] Ganesh Garcia Work Phone: [phone] [place] [address] Start: 10-27-[address] Ganesh horne Work Phone: [phone] [address] Start: 10-27-2022 End: 10-27-2022 Dr. Ganesh Garcia Work Phone: [phone] [place] [address] Start: 10-21-2022 End: 10-21-[address] Ganesh Garcia Work Phone: [phone] [place] [address] Start: 10-21-2022 End: 10-21-2022 Dr. Ganesh Garcia Work Phone: [phone] [address] Start: 10-13-2022 End: 10-13-[address] Ganesh Garcia Work Phone: [phone] [address] Work Phone: Start: 10-13-2022 End: 10-13-[address] Ganesh Garcia Work Phone: [phone] [address] Start: 10-13-[address] Ganesh horne Work Phone: [phone] [place] [address] Start: 10-13-2022 End: 10-13-2022 Dr. Ganesh Garcia Work Phone: [phone] [place] [address] Start: 10-12-2022 End: 10-12-[address] Ganesh Garcia Work Phone: [phone] [place] [address] Start: 10-12-2022 End: 10-12-2022 Dr. Ganesh Garcia Work Phone: [facility] Start: 10-09-2022 End: 10-09-2022 Emergency department patient visit Dr. Ganesh Garcia Work Phone: [facility] Start: 10-09-2022 End: 10-09-2022 Dr. Ganesh Garcia Work Phone: [facility] Start: 09-29-2022 End: 09-29-[address] Ganesh Garcia Work Phone: [facility] Start: 09-29-[address] Ganesh horne Work Phone: [phone] [place] [address] Start: 09-29-2022 End: 09-29-2022 Dr. Ganesh Garcia Work Phone: [phone] [place] [address] Start: 09-15-2022 End: 09-15-[address] Ganesh Garcia Work Phone: [phone] [place] [address] Work Phone: Start: 09-15-2022 End: 09-15-[address] Ganesh Garcia Work Phone: [phone] [place] [address] Start: 09-15-[address] Ganesh horne Work Phone: [phone] [place] [address] Start: 09-15-2022 End: 09-15-2022 Dr. Ganesh Garcia Work Phone: [phone] [address] Start: 09-11-2022 End: 09-11-[address] Ganesh Garcia Work Phone: [facility] Work Phone: Start: 09-11-2022 End: 09-11-[address] Ganesh Garcia Work Phone: [facility] Start: 09-11-[address] Ganseh horne Work Phone: [facility] Start: 09-11-2022 End: 09-11-2022 Dr. Ganesh Garcia Work Phone: [facility] Start: 09-09-2022 End: 09-09-[address] Ganesh Garcia Work Phone: [facility] Start: 09-09-2022 End: 09-09-2022 Dr. Ganesh Garcia Work Phone: [facility] Start: 09-01-2022 End: 09-01-[address] Ganesh Garcia Work Phone: [facility] Start: 09-01-2022 End: 09-01-[address] Ganesh Garcia Work Phone: [facility] Work Phone: Start: 09-01-2022 End: 09-01-[address] Ganesh Garcia Work Phone: [facility] Start: 08-24-2022 End: 08-24-[address] Ganesh Garcia Work Phone: [facility] Start: 08-24-2022 End: 08-24-2022 Emergency department patient visit Dr. Ganesh Garcia Work Phone: [facility] Start: 08-18-2022 End: 08-18-[address] Ganesh Garcia Work Phone: [facility] Work Phone: Start: 08-18-2022 End: 08-18-[address] Ganesh Garcia Work Phone: [facility] Start: 08-18-[address] Luis Carlos Lopez Work Phone: [facility] Start: 08-04-2022 End: 08-04-[address] Jarred Lopez Work Phone: [facility] Work Phone: Start: 08-04-2022 End: 08-04-[address] Jarred Lopez Work Phone: [facility] Start: 08-04-[address] Luis Carlos Lopez Work Phone: [facility] Start: 07-20-2022 End: 07-20-[address] Jarred Lopez Work Phone: [facility] Work Phone: Start: 07-20-2022 End: 07-20-[address] Jarred Lopez Work Phone: [facility] Start: 07-20-[address] Luis Carlos Lopez Work Phone: [facility] Start: 07-13-2022 End: 07-13-[address] Ganesh Garcia Work Phone: [facility] Start: 07-13-[address] Luis Carlos Lopez Work Phone: [facility] Start: 07-07-2022 End: 07-07-[address] Jarred Lopez Work Phone: [facility] Start: 07-07-[address] Luis Carlos Lopez Work Phone: [facility] Start: 07-03-2022 End: 07-03-[address] Jarred Lopez Work Phone: [facility] Work Phone: Start: 07-03-2022 End: 07-03-[address] Jarred Lopez Work Phone: [facility] Start: 07-03-[address] Luis Carlos Lopez Work Phone: [facility] Start: 07-02-2022 Non-patient / Non-visit Dr. Adriana Lopez Work Phone: [facility] Start: 07-02-2022 End: 07-02-[address] Jarred Lopez Work Phone: [facility] Start: 07-01-2022 End: 07-01-[address] Jarred Lopez Work Phone: [facility] Work Phone: Start: 07-01-2022 End: 07-01-[address] Jarred Lopez Work Phone: [facility] Start: 07-01-[address] Luis Carlos Lopez Work Phone: [facility] Start: 06-23-2022 End: 06-23-[address] Jarred Lopez Work Phone: [facility] Work Phone: Start: 06-23-2022 End: 06-23-[address] Jarred Lopez Work Phone: [facility] Start: 06-12-2022 End: 06-12-[address] Jarred Lopez Work Phone: [facility] Work Phone: Start: 06-12-2022 End: 06-12-[address] Jarred Lopez Work Phone: [facility] Start: 06-12-2022 End: 06-12-[address] Jarred Lopez Work Phone: [facility] Start: 06-09-2022 Non-patient / Non-visit Dr. Adriana oLpez Work Phone: [facility] Start: 06-09-2022 End: 06-09-[address] Jarred Lopez Work Phone: [facility] Start: 06-09-[address] Luis Carlos Lopez Work Phone: [facility] Start: 05-26-[address] Luis Carlos Lopez Work Phone: [facility] Start: 05-21-2022 Non-patient / Non-visit Dr. Adriana Lopez Work Phone: [facility] Start: 05-21-2022 End: 05-21-2022 Evaluation and management of inpatient Dr. Jarred Lopez Work Phone: [facility] Start: 05-20-2022 End: 05-20-[address] Jarred Lopez Work Phone: [facility] Start: 05-20-[address] Luis Carlos Lopez Work Phone: [facility] Start: 05-12-2022 End: 05-12-[address] Jarred Lopez Work Phone: [facility] Start: 05-12-[address] Luis Carlos Lopez Work Phone: [facility] Start: 05-04-2022 End: 05-04-[address] Jarred Lopez Work Phone: [facility] Start: 05-03-2022 End: 05-04-2022 Emergency department patient visit Dr. Jarred Lopez Work Phone: [phone] [place] [address]-Emergency Department Start: 05-03-2022 End: 05-04-2022 Non-patient / Non-visit Dr. Jarred Lopez Work Phone: [facility] Start: 04-28-2022 End: 04-28-[address] Jarred Lopez Work Phone: [facility] Start: 04-28-2022 End: 04-28-[address] Jarred Lopez Work Phone: [facility] Start: 04-28-[address] Luis Carlos Lopez Work Phone: [facility] Start: 04-25-2022 Non-patient / Non-visit Dr. Adriana Lopez Work Phone: [facility] Start: 04-25-2022 Non-patient / Non-visit Dr. Adriana Lopez Work Phone: [facility] Start: 04-24-2022 Non-patient / Non-visit Dr. Adriana Lopez Work Phone: [facility] Start: 04-24-2022 End: 04-25-2022 Evaluation and management of inpatient Dr. Jarred Lopez Work Phone: [facility] Start: 04-17-2022 End: 04-17-[address] Jarred Lopez Work Phone: [facility] Start: 04-17-[address] Luis Carlos Lopez Work Phone: [facility] Start: 04-13-2022 End: 04-13-[address] Jarred Lopez Work Phone: [facility] Start: 04-13-[address] Luis Carlos Lopez Work Phone: [facility] Start: 04-06-2022 End: 04-06-[address] Jarred Lopez Work Phone: [facility] Start: 04-03-2022 [facility] Shital Patel [facility] Comment on above: Population Health Na vigation Outreach (HCC) Start: 03-30-2022 Non-patient / Non-visit Dr. Adriana Lopez Work Phone: [facility] Start: 03-29-2022 Non-patient / Non-visit Dr. Adriana Lopez Work Phone: [facility] Start: 03-28-2022 Non-patient / Non-visit Dr. Adriana Lopez Work Phone: [facility] Start: 03-27-2022 Non-patient / Non-visit Dr. Adriana Lopez Work Phone: [facility] Start: 03-26-2022 Non-patient / Non-visit Dr. Adriana Lopez Work Phone: [facility] Start: 03-25-2022 Non-patient / Non-visit Dr. Adriana Lopez Work Phone: [facility] Start: 03-24-2022 Non-patient / Non-visit Dr. Adriana Lopez Work Phone: [facility] Start: 03-23-2022 Non-patient / Non-visit Dr. Adriana Lopez Work Phone: [facility] Start: 03-22-2022 Non-patient / Non-visit Dr. Adriana Lopez Work Phone: [facility] Start: 03-21-2022 Non-patient / Non-visit Dr. Adriana Lopez Work Phone: [facility] Start: 03-20-2022 Non-patient / Non-visit Dr. Adriana Lopez Work Phone: [facility] Start: 03-20-2022 End: 03-30-2022 Evaluation and management of inpatient Dr. Jarred Lopez Work Phone: [facility] Start: 02-24-2022 End: 02-24-2022 Emergency department patient visit [facility] Start: 01-13-2022 End: 01-13-2022 Emergency department patient visit [facility] Start: 09-27-2021 End: 09-27-2021 Emergency department patient visit [facility] Start: 09-29-2018 Patient encounter procedure Tj L Calixto Facility:[facility] Start: 08-03-2018 Patient encounter procedure Tj L Calixto Facility:[facility] Start: 06-01-2018 Patient encounter procedure Tj L Calixto Facility:[facility] Start: 03-08-2018 Ambulatory SIXTO CALIXTO Facility :[facility] Start: 02-22-2018 Patient encounter procedure Tj L Calixto Facility:[facility] Start: 11-30-2017 Patient encounter procedure Tj L Calixto Facility:[facility] Start: 12-10-2008 End: 06-03-2015 Patient encounter status Annabel Agrawal MA Dahlgren Josue salguero Work Phone: Procedures Date Procedure Procedure Detail Performing Clinician Start: 04-12-2025 Gram stain microscopy Eliza Linares MD Work Phone: Start: 04-12-2025 Microbial culture, routine Dr. Lizet Linares MD Work Phone: Start: 01-30-2025 Evaluation of diagno stic study results Dr. Lizet Linares MD Work Phone: Start: 01-22-2025 Plain chest X-ray Dr. Tal Lniares MD Work Phone: Start: 01-22-2025 Estimated creatinine [...] Adult depression scr eening assessment Shital Patel SARITA Start: 01-22-2017 Mammography Shital Micahel MA Start: 08-14-2010 End: 08-14-2010 Mri spinal [...] Urinls dip stick/tablet reagnt non-auto micrscpy Brenda Atrhur MD Urine culture Dr. Jarred Lopez Work Phone: Urine culture Dr. Ganesh hatch Work Phone: Viral antigen assay Dr. Lincoln Lopez Work Phone: Plan of Treatment Date Care Activity Detail Author Start: 06-09-2031 Urine microalbumin profile [facility] Start: 06-25-2025 Influenza vaccination Influenza Vaccine (Season Ended) [facility] Start: 01-22-2025 [facility] Start: 01-22-2025 [facility] Start: 10-25-2024 Medicare Advantage Annual Wellness Visit Medicare Advantage Annual Wellness Visit [facility] Start: 10-24-2024 [facility] Start: 06-25-2024 Covid-19 Vaccine ( season) Covid-19 Vaccine ( [facility] [facility] Start: 06-25-2024 Influenza vaccination [facility] Start: 04-18-2024 End: 04-18-2024 Patient encounter procedure 04/18/2024 12:20 PM EDT Office Visit Family [facility] [address] [place] [address] 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 APRN.SIGNING AGENT [address] [place] [address] Yearly Exam [facility] Comment on above: Yearly Exam Start: 04-07-2024 3 comp foot exam completed DIABETIC FOOT EXAM [facility] Start: 04-07-2024 ANNUAL PCP TEAM CHRONIC DISEASE VISIT ANNUAL PCP TEAM CHRONIC DISEASE VISIT [facility] Start: 04-07-2024 COVID-19 VACCINE (4 - Booster for Pfizer series) COVID-19 VACCINE (4 - Booster for Pfizer series) [facility] Comment on above: Postponed from 07/28/2022 (Declined at t his time) Start: 04-07-2024 COVID-19 VACCINE (4 - Pfizer series) COVID-19 VACCINE (4 - Pfizer series) [facility] Comment on above: Postponed from 07/28/2022 (Declined at t his time) Start: 04-07-2024 Diabetic foot examination Diabetic Foot Exam [facility] Start: 04-07-2024 SHINGRIX VACCINE (1 of 2) SHINGRIX VACCINE (1 of 2) [facility] Comment on above: Postponed from 2013 (Declined at t his time) Start: 03-30-2024 End: 03-30-2024 Patient encounter procedure 03/30/2024 12:40 PM EDT Office Visit [facility] [place] [address] [place] [address] Dwayne Lopez MD [address] [place] [address] ER follow up; [facility] 03/24/2024 head injury-PCP has ER summary on desk [facility] [place] Comment on above: ER follow up; [facility] 03/24/2024 head injury- PCP has ER summary on desk Start: 03-24-2024 ANNUAL PCP TEAM CHRONIC DISEASE VISIT ANNUAL PCP TEAM CHRONIC DISEASE VISIT [facility] Start: 02-25-2024 End: 02-25-2024 Blood chemistry [facility] Start: 02-25-2024 End: 02-25-2024 Thyroid stimulating hormone measurement [facility] Start: 02-25-2024 End: 02-25-2024 [facility] Start: 01-20-2024 End: 01-20-2024 [facility] Start: 01-20-2024 [facility] Start: 01-17-2024 Urine culture [facility] Start: 01-17-2024 [facility] Start: 01-05-2024 Patient discharge [facility] Start: 01-01-2024 End: 01-01-2024 Following clinical pathway protocol [facility] Start: 01-01-2024 Assessment of risk of venous thromboembolism [facility] Start: 01-01-2024 Care regimes management [facility] Start: 01-01-2024 Fall prevention [facility] Start: 01-01-2024 Inhalation therapy procedure [facility] Start: 01-01-2024 Insertion of catheter into peripheral vein [facility] Start: 01-01-2024 Introduction of urinary catheter [facility] Start: 01-01-2024 Measuring intake and output [facility] Start: 01-01-2024 Notification of physician [facility] Start: 01-01-2024 Oxygen therapy [facility] Start: 01-01-2024 Providing care according to standard [facility] Start: 01-01-2024 Provision of activity privileges [facility] Start: 01-01-2024 Referral to occupational therapist [facility] Start: 01-01-2024 Referral to service [facility] Start: 01-01-2024 [facility] Start: 01-01-2024 Verification routine [facility] Start: 01-01-2024 Admission procedure [facility] Start: 01-01-2024 Hospital admission, emergency, from emergency room, medical nature [facility] Start: 01-01-2024 Patient referral to dietitian [facility] Start: 11-24-2023 Patient discharge [facility] Start: 11-22-2023 [facility] Start: 11-22-2023 Blood chemistry [facility] Start: 11-21-2023 Blood chemistry [facility] Start: 11-21-2023 [facility] Start: 11-20-2023 Blood chemistry [facility] Start: 11-19-2023 End: 11-19-2023 [facility] Start: 11-19-2023 Following clinical pathway protocol [facility] Start: 11-19-2023 Ambulation without limitation [facility] Start: 11-19-2023 Assessment of risk of venous thromboembolism [facility] Start: 11-19-2023 Care regimes management [facility] Start: 11-19-2023 Incentive spirometry [facility] Start: 11-19-2023 Insertion of catheter into peripheral vein [facility] Start: 11-19-2023 Measuring intake and output [facility] Start: 11-19-2023 Notification of physician [facility] Start: 11-19-2023 Providing care according to standard [facility] Start: 11-19-2023 Provision of activity privileges [facility] Start: 11-19-2023 Referral to occupational therapist [facility] Start: 11-19-2023 Referral to service [facility] Start: 11-19-2023 Verification routine [facility] Start: 11-19-2023 Admission procedure [facility] Start: 11-19-2023 Enteric precautions [facility] Start: 11-19-2023 Measurement of occult blood in stool specimen using immunoassay [facility] Start: 11-19-2023 Patient referral to dietitian [facility] Start: 10-25-2023 Behavioral Health Screening Behavioral Health Screening [facility] Start: 10-25-2023 Depression Assessment Depression Assessment [facility] Start: 2023 Hepatitis B Vaccine (1 of 3 - Risk 3-dose series) Hepatitis B Vaccine (1 of 3 - Risk 3-dose series) [facility] Start: 2023 RSV Vaccine (1 - 1-dose 60+ series) RSV Vaccine (1 - 1-dose 60+ series) [facility] Start: 2023 RSV Vaccine (1 - Risk 60-74 years 1-dose series) RSV Vaccine (1 - Risk 60-74 years 1-dose series) [facility] Start: 06-25-2023 Covid-19 Vaccine ( season) Covid-19 Vaccine ( season) [facility] Start: 06-25-2023 Influenza vaccination [facility] Start: 04-07-2023 End: 06-07-2023 ALBUMIN/CREAT RATIO RND UR ALBUMIN/CREAT RATIO RND UR Lab Routine Diabetes mellitus type 2 with neurological manifestations (HCC) Expected: 04/07/2023, Expires: 06/07/2023 [facility] Work Phone: Comment on above: Expected: 04/07/2023, Expires: 3 Start: 04-07-2023 End: 06-07-2023 CBC W Auto Differential panel - Blood CBC + DIFF Lab Routine Diabetes mellitus type 2 with neurological manifestations (HCC) Expected: 04/07/2023, Expires: 06/07/2023 [facility] Work Phone: Comment on above: Expected: 04/07/2023, Expires: 3 Start: 04-07-2023 End: 06-07-2023 Comprehensive metabolic 2000 panel - Serum or Plasma COMP METABOLIC PANEL Lab Routine Diabetes mellitus type 2 with neurological manifestations (HCC) Expected: 04/07/2023, Expires: 06/07/2023 [facility] Work Phone: Comment on above: Expected: 04/07/2023, Expires: 3 Start: 04-07-2023 End: 06-07-2023 Hemoglobin A1c in Blood HGB A1C Lab Routine Diabetes mellitus type 2 with neurological manifestations (HCC) Expected: 04/07/2023, Expires: 06/07/2023 [facility] Work Phone: Comment on above: Expected: 04/07/2023, Expires: 3 Start: 04-07-2023 End: 06-07-2023 Hepatic function 2000 panel - Serum or Plasma HEPATIC FUNCTION PNL Lab Routine Onychomycosis Expected: 04/07/2023, Expires: 06/07/2023 [facility] Work Phone: Comment on above: Expected: 04/07/2023, Expires: 3 Start: 04-07-2023 End: 06-07-2023 LIPID PANEL, NONFASTING LIPID PANEL, NONFASTING Lab Routine Diabetes mellitus type 2 with neurological manifestations (HCC) Expected: 04/07/2023, Expires: 06/07/2023 [facility] Work Phone: Comment on above: Expected: 04/07/2023, Expires: 3 Start: 04-07-2023 End: 06-07-2023 Thyrotropin [Units/volume] in Serum or Plasma TSH BLD Lab Routine Acquired hypothyroidism Expected: 04/07/2023, Expires: 06/07/2023 [facility] Work Phone: Comment on above: Expected: 04/07/2023, Expires: 3 Start: 01-29-2023 [facility] Start: 11-05-2022 [facility] Start: 10-25-2022 DEPRESSION ASSESSMENT DEPRESSION ASSESSMENT [facility] Start: 10-09-2022 [facility] Work Phone: Start: 08-24-2022 [facility] Start: 07-28-2022 COVID-19 VACCINE (4 - Booster for Pfizer series) COVID-19 VACCINE (4 - Booster for Pfizer series) [facility] Start: 07-13-2022 [facility] Work Phone: Start: 06-25-2022 Influenza vaccination [facility] Start: 05-22-2022 Blood chemistry [facility] Work Phone: Start: 05-22-2022 Complete blood count [facility] Work Phone: Start: 05-22-2022 Partial thromboplastin time, activated [facility] Work Phone: Start: 05-22-2022 Prothrombin time [facility] Work Phone: Start: 05-21-2022 Notification of physician [facility] Work Phone: Start: 05-21-2022 Patient discharge [facility] Work Phone: Start: 05-21-2022 Provision of activity privileges [facility] Work Phone: Start: 05-21-2022 Scheduling [facility] Work Phone: Start: 05-21-2022 Taking patient vital signs [facility] Work Phone: Start: 05-21-2022 Vascular disease risk assessment [facility] Work Phone: Start: 05-21-2022 [facility] Work Phone: Start: 05-21-2022 Referral to occupational therapist [facility] Work Phone: Start: 05-21-2022 Referral to service [facility] Work Phone: Start: 05-21-2022 Catheterization of vein [facility] Work Phone: Start: 05-21-2022 Medication not administered [facility] Work Phone: Start: 05-21-2022 [facility] Work Phone: Start: 05-21-2022 Application of intermittent pneumatic compression device [facility] Work Phone: Start: 05-21-2022 Following clinical pathway protocol [facility] Work Phone: Start: 05-21-2022 Assessment of risk of venous thromboembolism [facility] Work Phone: Start: 05-21-2022 Care regimes management [facility] Work Phone: Start: 05-21-2022 Insertion of catheter into peripheral vein [facility] Work Phone: Start: 05-21-2022 Introduction of urinary catheter [facility] Work Phone: Start: 05-21-2022 Measuring intake and output [facility] Work Phone: Start: 05-21-2022 Oxygen therapy [facility] Work Phone: Start: 05-21-2022 Providing care according to standard [facility] Work Phone: Start: 05-21-2022 Provision of activity privileges [facility] Work Phone: Start: 05-21-2022 Referral to certified orthoptist [facility] Work Phone: Start: 05-21-2022 Referral to service [facility] Work Phone: Start: 05-21-2022 [facility] Work Phone: Start: 05-21-2022 Verification routine [facility] Work Phone: Start: 05-21-2022 Admission procedure [facility] Work Phone: Start: 05-03-2022 [facility] Work Phone: Start: 04-25-2022 Patient discharge [facility] Work Phone: Start: 04-24-2022 Ambulation without limitation [facility] Work Phone: Start: 04-24-2022 Assessment of risk of venous thromboembolism [facility] Work Phone: Start: 04-24-2022 Care regimes management [facility] Work Phone: Start: 04-24-2022 Catheterization of vein [facility] Work Phone: Start: 04-24-2022 Insertion of catheter into peripheral vein [facility] Work Phone: Start: 04-24-2022 Measuring intake and output [facility] Work Phone: Start: 04-24-2022 Oxygen therapy [facility] Work Phone: Start: 04-24-2022 Providing care according to standard [facility] Work Phone: Start: 04-24-2022 Referral to service [facility] Work Phone: Start: 04-24-2022 [facility] Work Phone: Start: 04-24-2022 Following clinical pathway protocol [facility] Work Phone: Start: 04-24-2022 Admission procedure [facility] Work Phone: Start: 03-30-2022 Patient discharge [facility] Work Phone: Start: 03-30-2022 [facility] Work Phone: Start: 03-25-2022 Oxygen therapy [facility] Work Phone: Start: 03-20-2022 Assessment of risk of venous thromboembolism [facility] Work Phone: Start: 03-20-2022 Catheterization of vein [facility] Work Phone: Start: 03-20-2022 Insertion of catheter into peripheral vein [facility] Work Phone: Start: 03-20-2022 Measuring intake and output [facility] Work Phone: Start: 03-20-2022 Providing care according to standard [facility] Work Phone: Start: 03-20-2022 Provision of activity privileges [facility] Work Phone: Start: 03-20-2022 Referral to occupational therapist [facility] Work Phone: Start: 03-20-2022 Referral to service [facility] Work Phone: Start: 03-20-2022 [facility] Work Phone: Start: 03-20-2022 Following clinical pathway protocol [facility] Work Phone: Start: 03-20-2022 Admission procedure [facility] Work Phone: Start: 01-13-2022 Bacteria identified in Urine by Culture Urine Culture [facility] Work Phone: Start: 07-21-2021 COVID-19 VACCINE (3 - Booster for Pfizer series) COVID-19 VACCINE (3 - Booster for Pfizer series) [facility] Start: 04-15-2021 COVID-19 VACCINE (3 - Booster for Pfizer series) COVID-19 VACCINE (3 - Booster for Pfizer series) [facility] Start: 03-25-2021 Glaucoma screening Dilated Retinal Exam [facility] Start: 03-25-2021 Hepatitis C antibody, confirmatory test DILATED RETINAL EXAM [facility] Start: 01-24-2021 ANNUAL PCP TEAM CHRONIC DISEASE VISIT ANNUAL PCP TEAM CHRONIC DISEASE VISIT [facility] Start: 12-25-2020 Hepatitis B screening URINE ALBUMIN:CREATININE RATIO [facility] Start: 10-27-2020 COLORECTAL CANCER SCREENING COLORECTAL CANCER SCREENING [facility] Start: 10-27-2020 FECAL OCCULT BLOOD FECAL OCCULT BLOOD [facility] Start: 10-27-2020 Screening for malignant neoplasm of colon [facility] Start: 10-26-2020 Creatinine measurement Serum Creatinine [facility] Start: 10-26-2020 SERUM CREATININE SERUM CREATININE [facility] Start: 09-18-2020 Hepatitis B surface antibody level LDL CHOLESTEROL [facility] Start: 09-04-2020 Complete blood count Hemoglobin/Hematocrit [facility] Start: 02-22-2020 Hemoglobin A1c measurement HbA1C [facility] Start: 02-22-2020 Hemoglobin A1c/Hemoglobin.total in Blood HBA1C [facility] Start: 07-04-2019 PNEUMOCOCCAL (2 - PCV) PNEUMOCOCCAL (2 - PCV) [facility] Start: 06-21-2018 3 comp foot exam completed DIABETIC FOOT EXAM [facility] Start: 06-21-2018 Adult depression screening assessment DEPRESSION SCREENING [facility] Start: 01-22-2018 Mammography [facility] Start: 01-22-2018 Screening for malignant neoplasm of breast Mammogram Screening [facility] Start: 07-28-2017 End: 07-28-2017 Appointment [facility] Work Phone: Start: 2013 SHINGRIX VACCINE (1 of 2) SHINGRIX VACCINE (1 of 2) [facility] Start: 08-14-2010 End: 08-14-2010 Follow Up Appt 1 month Follow Up Appt 1 month [facility] Work Phone: Start: 08-14-2010 End: 08-14-2010 Iiv3 vaccine split virus 0.5 ml dosage im use Flu vaccine > age 3 yr (with preservative) [facility] Work Phone: Start: 03-10-2010 End: 08-11-2010 Blood count complete automated *CBC without Diff [facility] Work Phone: Start: 03-10-2010 End: 08-11-2010 Comprehensive metabolic panel *CMP Complete Metabolic Panel [facility] Work Phone: Start: 03-10-2010 End: 03-10-2010 Follow Up Appt 2 weeks Follow Up Appt 2 weeks [facility] Work Phone: Start: 03-10-2010 End: 11-19-2014 Gastroenterology Referral Gastroenterology Referral Hennarocky Welshtemi, [address] [place] [address], [address], [place], [address] [facility] Work Phone: Start: 03-10-2010 End: 08-11-2010 Hemoglobin A1c/Hemoglobin.total mass fraction (Bld) *HgA1C [facility] Work Phone: Start: 03-10-2010 End: 08-11-2010 Protein mass conc *Lipid Profile [facility] Work Phone: Start: 03-10-2010 End: 08-11-2010 Thyrotropin Qn *TSH [facility] Work Phone: Start: 03-10-2010 End: 08-11-2010 Urinls dip stick/tablet reagnt non-auto micrscpy *Urinalysis [facility] Work Phone: Start: 2008 COLOGUARD (FIT-DNA) COLOGUARD (FIT-DNA) [facility] Start: 2008 Colonoscopy COLONOSCOPY [facility] Start: [address] COLONOGRAPHY [facility] Start: 2008 Screening for malignant neoplasm of colon [facility] Start: 2008 SIGMOIDOSCOPY SIGMOIDOSCOPY [facility] Start: 1982 HEPATITIS B (1 of 3 - Risk 3-dose series) HEPATITIS B (1 of 3 - Risk 3-dose series) [facility] Start: 1981 Anxiety Screening Anxiety Screening [facility] Start: 1981 Depression Screening Depression Screening [facility] Alanine aminotransfe rase [Enzymatic activity/volume] in Serum or Plasma [facility] Work Phone: Alanine aminotransfe rase [Enzymatic activity/volume] in Serum or Plasma [facility] Alanine aminotransfe rase [Enzymatic activity/volume] in Serum or Plasma [facility] Albumin [Mass/volume ] in Serum or Plasma [facility] Work Phone: Albumin [Mass/volume ] in Serum or Plasma [facility] Albumin [Mass/volume ] in Serum or Plasma [facility] Alkaline phosphatase [Enzymatic activity/volume] in Serum or Plasma [facility] Work Phone: Alkaline phosphatase [Enzymatic activity/volume] in Serum or Plasma [facility] Alkaline phosphatase [Enzymatic activity/volume] in Serum or Plasma [facility] Anion gap measurement [facility] Work Phone: Anion gap measurement [facility] Anion gap measurement [facility] Anion gap measurement [facility] Anion gap measurement [facility] Anion gap measurement [facility] Aspartate aminotransferase [Enzymatic activity/volume] in Serum or Plasma [facility] Work Phone: Aspartate aminotransferase [Enzymatic activity/volume] in Serum or Plasma [facility] Aspartate aminotransferase [Enzymatic activity/volume] in Serum or Plasma [facility] Bacteria identified in Urine by Culture Urine Culture [facility] Work Phone: Bilirubin measuremen t, urine [facility] Bilirubin, total measurement [facility] Work Phone: Bilirubin, total measurement [facility] Bilirubin, total measurement [facility] Bilirubin.direct [Mass/volume] in Serum or Plasma [facility] BUN/Creatinine ratio [facility] Work Phone: BUN/Creatinine ratio [facility] BUN/Creatinine ratio [facility] BUN/Creatinine ratio [facility] BUN/Creatinine ratio [facility] BUN/Creatinine ratio [facility] Calcium [Mass/volume ] in Serum or Plasma [facility] Work Phone: Calcium [Mass/volume ] in Serum or Plasma [facility] Calcium [Mass/volume ] in Serum or Plasma [facility] Calcium [Mass/volume ] in Serum or Plasma [facility] Calcium [Mass/volume ] in Serum or Plasma [facility] Calcium [Mass/volume ] in Serum or Plasma [facility] Carbon dioxide, tota l [Moles/volume] in Serum or Plasma [facility] Work Phone: Carbon dioxide, tota l [Moles/volume] in Serum or Plasma [facility] Carbon dioxide, tota l [Moles/volume] in Serum or Plasma [facility] Carbon dioxide, tota l [Moles/volume] in Serum or Plasma [facility] Carbon dioxide, tota l [Moles/volume] in Serum or Plasma [facility] Carbon dioxide, tota l [Moles/volume] in Serum or Plasma [facility] Cardiac event recording [facility] Chloride [Moles/volu me] in Serum or Plasma [facility] Work Phone: Chloride [Moles/volu me] in Serum or Plasma [facility] Chloride [Moles/volu me] in Serum or Plasma [facility] Chloride [Moles/volu me] in Serum or Plasma [facility] Chloride [Moles/volu me] in Serum or Plasma [facility] Chloride [Moles/volu me] in Serum or Plasma [facility] Cholesterol [Mass/vo lume] in Serum or Plasma [facility] Work Phone: Cholesterol in HDL [Mass/volume] in Serum or Plasma [facility] Work Phone: Cholesterol in LDL [Mass/volume] in Serum or Plasma [facility] Work Phone: Clostridioides diffi cile DNA [Presence] in Unspecified specimen by ZHANE with probe detection [facility] Creatinine [Moles/vo lume] in Serum or Plasma [facility] Work Phone: Creatinine [Moles/vo lume] in Serum or Plasma [facility] Creatinine [Moles/vo lume] in Serum or Plasma [facility] Creatinine [Moles/vo lume] in Serum or Plasma [facility] Creatinine [Moles/vo lume] in Serum or Plasma [facility] Creatinine [Moles/vo lume] in Serum or Plasma [facility] End: 03-08-2026 DBT Breast - bilateral screening [facility] SCREENING [facility] Radiology Routine Encounter for screening mammogram for breast cancer 1 Occurrences starting 02/06/2025 until 03/08/2026 [facility] Work Phone: Comment on above: 1 Occurrences starting 02/06/2025 until 03/08/2026 Erythrocyte mean corpuscular volume determination [facility] Erythrocyte mean corpuscular volume determination [facility] Erythrocyte mean corpuscular volume determination [facility] Erythrocyte mean corpuscular volume determination [facility] Gastrointestinal pathogens panel - Stool by ZHANE with probe detection [facility] Glucose [Mass/volume ] in Serum or Plasma [facility] Work Phone: Glucose [Mass/volume ] in Serum or Plasma [facility] Glucose [Mass/volume ] in Serum or Plasma [facility] Glucose [Mass/volume ] in Serum or Plasma [facility] Glucose [Mass/volume ] in Serum or Plasma [facility] Glucose [Mass/volume ] in Serum or Plasma [facility] Hematocrit [Volume Fraction] of Blood [facility] Work Phone: Hematocrit [Volume Fraction] of Blood [facility] Hematocrit [Volume Fraction] of Blood [facility] Hematocrit [Volume Fraction] of Blood [facility] Hematocrit [Volume Fraction] of Blood [facility] Hemoglobin [Mass/vol ume] in Blood [facility] Work Phone: Hemoglobin [Mass/vol ume] in Blood [facility] Hemoglobin [Mass/vol ume] in Blood [facility] Hemoglobin [Mass/vol ume] in Blood [facility] Hemoglobin [Mass/vol ume] in Blood [facility] Hemoglobin [Presence ] in Urine [facility] Hemoglobin A1c/Hemoglobin.total in Blood [facility] INR in Blood by Coagulation assay [facility] Work Phone: Lactoferrin [Presenc e] in Stool by Immunoassay [facility] Leukocytes [#/volume ] in Blood [facility] Work Phone: Leukocytes [#/volume ] in Blood [facility] Leukocytes [#/volume ] in Blood [facility] Leukocytes [#/volume ] in Blood [facility] Leukocytes [#/volume ] in Blood [facility] Lipid 1996 panel - S sondra or Plasma [facility] Work Phone: Magnesium [Mass/volu me] in Serum or Plasma [facility] Mean corpuscular hemoglobin concentration determination [facility] Work Phone: Mean corpuscular hemoglobin concentration determination [facility] Mean corpuscular hemoglobin concentration determination [facility] Mean corpuscular hemoglobin concentration determination [facility] Mean corpuscular hemoglobin concentration determination [facility] Mean corpuscular hemoglobin determination [facility] Work Phone: Mean corpuscular hemoglobin determination [facility] Mean corpuscular hemoglobin determination [facility] Mean corpuscular hemoglobin determination [facility] Mean corpuscular hemoglobin determination [facility] Measurement of keton es in urine using dipstick [facility] Measurement of renal function [facility] Work Phone: Measurement of renal function [facility] Measurement of renal function [facility] Measurement of renal function [facility] Measurement of renal function [facility] Measurement of renal function [facility] End: 04-07-2025 MG Breast Screening [facility] Radiology Routine Encounter for screening mammogram for breast cancer 1 Occurrences starting 03/08/2024 until 04/07/2025 [facility] Work Phone: Comment on above: 1 Occurrences starting 03/08/2024 until 04/07/2025 Microscopic urinalysis [facility] Neutrophil count [facility] Work Phone: Neutrophil count [facility] Neutrophil count [facility] Neutrophil count [facility] Neutrophil count [facility] Neutrophil percent differential count [facility] Work Phone: Neutrophil percent differential count [facility] Neutrophil percent differential count [facility] Neutrophil percent differential count [facility] Neutrophil percent differential count [facility] NM Heart Views W str ess and W radionuclide IV [facility] Ova and parasites identified in Unspecified specimen by Light microscopy [facility] Partial thromboplast in time, activated [facility] Work Phone: Patient Education [facility] Now in Work Phone: Patient referral [facility] Work Phone: pH of Urine [facility] Platelets [#/volume] in Blood [facility] Work Phone: Platelets [#/volume] in Blood [facility] Platelets [#/volume] in Blood [facility] Platelets [#/volume] in Blood [facility] Platelets [#/volume] in Blood [facility] Pol[facility] Potassium [Moles/vol ume] in Serum or Plasma [facility] Work Phone: Potassium [Moles/vol ume] in Serum or Plasma [facility] Potassium [Moles/vol ume] in Serum or Plasma [facility] Potassium [Moles/vol ume] in Serum or Plasma [facility] Potassium [Moles/vol ume] in Serum or Plasma [facility] Potassium [Moles/vol ume] in Serum or Plasma [facility] Prothrombin time [facility] Work Phone: Red blood cell count [facility] Work Phone: Red blood cell count [facility] Red blood cell count [facility] Red blood cell count [facility] Red blood cell count [facility] Red cell distributio n width determination [facility] Work Phone: Red cell distributio n width determination [facility] Red cell distributio n width determination [facility] Red cell distributio n width determination [facility] Red cell distributio n width determination [facility] Serum inorganic phos phate measurement [facility] Sodium [Moles/volume ] in Serum or Plasma [facility] Work Phone: Sodium [Moles/volume ] in Serum or Plasma [facility] Sodium [Moles/volume ] in Serum or Plasma [facility] Sodium [Moles/volume ] in Serum or Plasma [facility] Sodium [Moles/volume ] in Serum or Plasma [facility] Sodium [Moles/volume ] in Serum or Plasma [facility] Specific gravity of Urine [facility] T4 free measurement [facility] Work Phone: Total protein measurement [facility] Work Phone: Total protein measurement [facility] Total protein measurement [facility] Triglycerides measurement [facility] Work Phone: Troponin I measurement [facility] Work Phone: Urea nitrogen [Mass/volume] in Serum or Plasma [facility] Work Phone: Urea nitrogen [Mass/volume] in Serum or Plasma [facility] Urea nitrogen [Mass/volume] in Serum or Plasma [facility] Urea nitrogen [Mass/volume] in Serum or Plasma [facility] Urea nitrogen [Mass/volume] in Serum or Plasma [facility] Urea nitrogen [Mass/volume] in Serum or Plasma [facility] Urinalysis, blood, qualitative [facility] Urine dipstick for glucose [facility] Urine dipstick for leukocyte esterase [facility] Urine dipstick for nitrite [facility] Urine dipstick for protein [facility] Urine examination [facility] Urine microscopy: epithelial cells [facility] Urine Microscopy: wh ite cells [facility] Urobilinogen [Presen ce] in Urine [facility] US Carotid arteries [facility] Work Phone: US Heart [facility] Work Phone: VLDL cholesterol measurement [facility] Work Phone: [facility] Immunizations Immunization Date Immunization Notes Care Provider Kimani qureshi 11-22-2023 influenza, injectabl e, quadrivalent, preservative free Dr. Jarred Lopez Work Phone: [facility] 11-22-2023 influenza virus vaccine, unspecified formulation Irena Wild [facility] 04-07-2023 pneumococcal (PCV20) vaccine, 20 valent (PREVNAR 20) Dwayne Lopez MD Work Phone: [facility] 04-07-2023 pneumococcal Conjuga te, unspecified formulation Dwayne Lopez MD Work Phone: [facility] Work Phone: 06-09-2021 tetanus toxoid, redu juan c diphtheria toxoid, and acellular pertussis vaccine, adsorbed [facility] 02-18-2021 Covid (Pfizer) [facility] 01-29-2021 Covid (Pfizer) [facility] 09-18-2019 influenza, injectabl e, quadrivalent, contains preservative Shital Jorge [facility] 09-18-2019 influenza virus vaccine, unspecified formulation Irena Hood [facility] 08-17-2019 influenza, injectabl e, quadrivalent, preservative free Shital Jorge [facility] 07-04-2018 influenza, injectabl e, quadrivalent, preservative free Shital Jorge [facility] 07-04-2018 pneumococcal polysaccharide vaccine, 23 valent Shital Jorge [facility] 09-07-2013 influenza, injectable,quadrivalent , preservative free, pediatric [facility] 09-07-2013 influenza, seasonal, injectable, preservative free Shital Jorge [facility] 11-23-2012 pneumococcal polysaccharide vaccine, 23 valent Shital Jorge [facility] 11-23-2012 Pneumococcal Vaccine [facility] Work Phone: 11-23-2012 pneumococcal vaccine , unspecified formulation Dr. Ganesh Garcia Work Phone: [facility] 08-14-2010 influenza, seasonal, injectable Angelika De La Torre LPN [facility] Work Phone: 03-10-2010 influenza, seasonal, injectable; Translations: [Follow Up Appt 2 weeks] Angelika De La Torre LPN [facility] Work Phone: 09-11-2009 novel [id number], preservative-free, injectable Shital Patel MA [facility] 10-10-2008 pneumococcal polysaccharide vaccine, 23 valent Shital Patel MA [facility] 08-25-2008 influenza virus vaccine, unspecified formulation Shital Patel MA [facility] Work Phone: 04-24-2006 tetanus and diphther ia toxoids, adsorbed, preservative free, for adult use (2 Lf of tetanus toxoid and 2 Lf of diphtheria toxoid) Shital Patel MA [facility] Work Phone: Payers Date Payer Category Payer Self-pay [id number] 2024 Unknown [id number] 2024 Medicaid [id number] 2024 Private Health Insurance [id number] 2022 Medicare (Managed Care) VINH DICKENS O [id number] 2022 Unknown VINH LINARES S AND BLUE SHIELD VINH AYON HMO [id number] 2022-Present [phone] [address] [place] [address] HMO [id number]. [id number] 2022 Unknown [id number]. 1.13.159.2. [id number] 2014 Medicaid [id number] Medicare [id number] Medicare [id number] Unknown [id number] 2.16.840.1.208247.3.579.2. 273 Unknown [id number] 2.16.840.1.937774.3.579.2. 273 Unknown [id number] 2.16.840.1.977210.3.579.2. 273 Unknown [id number] 2.16.840.1.039388.3.579.2. 273 Unknown [id number] 2.16.840.1.310944.3.579.2. 273 Unknown [id number] 2.16.840.1.944388.3.579.2. 462 Unknown [id number] 2.16.840.1.819253.3.579.2. 462 Unknown [id number] 2.16.840.1.426485.3.579.2. 462 Unknown [id number] 2.16.840.1.808952.3.579.2. 462 Unknown [id number] 2.16.840.1.552950.3.579.2. 462 Unknown [id number] 2.16.840.1.316792.3.579.2. 462 Unknown [id number] 2.16.840.1.376484.3.579.2. 462 Unknown [id number] 2.16.840.1.939073.3.579.2. 462 Unknown [id number] 2.16.840.1.082798.3.579.2. 462 Unknown [id number] 2.16.840.1.933322.3.579.2. 462 Unknown [id number] 2.16.840.1.167300.3.579.2. 462 Unknown [id number] 2.16.840.1.503699.3.579.2. 462 Unknown [id number] 2.16.840.1.918533.3.579.2. 462 Unknown [id number] 2.16.840.1.577230.3.579.2. 462 Unknown [id number] 2.16840.1.233724.3.579.2. 462 Unknown [id number] 2.16840.1.443057.3.579.2. 462 Unknown [id number] 2.16.840.1.524551.3.579.2. 462 Unknown [id number] 2.16.840.1.657827.3.579.2. 462 Unknown [id number] 2.16.840.1.819644.3.579.2. 462 Unknown [id number] 2.16.840.1.185399.3.579.2. 462 Unknown [id number] 2.16.840.1.373637.3.579.2. 462 Unknown [id number] 2.16.840.1.470275.3.579.2. 462 Unknown [id number] 2.16.840.1.360067.3.579.2. 462 Unknown [id number] 2.16.840.1.040115.3.579.2. 462 Unknown [id number] 2.16.840.1.794321.3.579.2. 462 Unknown [id number] 2.16.840.1.268295.3.579.2. 462 Unknown [id number] 2.16.840.1.493540.3.579.2. 462 Unknown [id number] 2.16.840.1.375721.3.579.2. 462 Unknown [id number] 2.16.840.1.893966.3.579.2. 462 Unknown [id number] 2.16.840.1.322670.3.579.2. 462 Unknown [id number] 2.16.840.1.075252.3.579.2. 462 Unknown [id number] 2.16.840.1.699651.3.579.2. 462 Unknown [id number] 2.16840.1.266279.3.579.2. 462 Unknown [id number] 2.16840.1.374794.3.579.2. 462 Unknown [id number] 2.840.1.991860.3.579.2. 462 Unknown [id number] 2.16840.1.814368.3.579.2. 462 Unknown [id number] 2.16840.1.328853.3.579.2. 462 Unknown [id number] 2.16840.1.353168.3.579.2. 462 Unknown [id number] 2.16840.1.559533.3.579.2. 462 Unknown [id number] 2.16.840.1.266870.3.579.2. 462 Unknown [id number] 2.16.840.1.775551.3.579.2. 462 Unknown [id number] 2.16.840.1.968931.3.579.2. 462 Unknown [id number] 2.16840.1.351794.3.579.2. 462 Unknown [id number] 2.16.840.1.458857.3.579.2. 462 Unknown [id number] 2.16840.1.007954.3.579.2. 462 Unknown [id number] 2.16.840.1.411984.3.579.2. 462 Unknown [id number] 2.16.840.1.403462.3.579.2. 462 Unknown [id number] 2.16.840.1.390045.3.579.2. 462 Unknown [id number] 2.16840.1.330977.3.579.2. 462 Unknown [id number] 2.16.840.1.888889.3.579.2. 462 Unknown [id number] 2.16840.1.904305.3.579.2. 462 Unknown [id number] 2.16840.1.341138.3.579.2. 462 Unknown [id number] 2.840.1.061803.3.579.2. 462 Unknown [id number] 2.840.1.112375.3.579.2. 462 Unknown [id number] 2.840.1.324505.3.579.2. 462 Unknown [id number] 2.840.1.478103.3.579.2. 462 Unknown [id number] 2.16840.1.119774.3.579.2. 462 Unknown [id number] 2.840.1.318598.3.579.2. 462 Unknown [id number] 2.16840.1.545228.3.579.2. 462 Unknown [id number] 2.16.840.1.678309.3.579.2. 462 Unknown [id number] 2.16.840.1.228676.3.579.2. 462 Unknown [id number] 2.16840.1.890356.3.579.2. 462 Unknown [id number] 2.16840.1.496312.3.579.2. 462 Unknown [id number] 2.16.840.1.043257.3.579.2. 462 Unknown [id number] 2.16.840.1.996509.3.579.2. 462 Unknown [id number] 2.16.840.1.534131.3.579.2. 462 Unknown [id number] 2.16.840.1.062707.3.579.2. 462 Unknown [id number] 2.16.840.1.127850.3.579.2. 462 Unknown [id number] 2.16.840.1.000522.3.579.2. 462 Unknown [id number] 2.16.840.1.479487.3.579.2. 462 Unknown [id number] 2.16.840.1.173345.3.579.2. 462 Unknown [id number] 2.16.840.1.007521.3.579.2. 462 Unknown [id number] 2.16.840.1.508946.3.579.2. 462 Unknown [id number] 2.16.840.1.942332.3.579.2. 462 Unknown [id number] 2.16840.1.420905.3.579.2. 462 Social History Date Type Detail Facility Start: 01-13-2022 End: 01-20-2024 Tobacco smoking status FLIS Unknown if ever smoked [facility] Start: 04-08-2019 Occasional [facility] Start: 12-12-2020 None [facility] Start: 02-28-2021 Homeless [facility] Start: 02-28-2021 Cigarettes [facility] Start: 1965 Sex Assigned At Female W [facility] Start: 10-21-2020 End: 03-16-2025 Tobacco smoking status NHIS Ex-smoker [facility] Start: 06-25-1977 End: 10-07-2020 History of tobacco use Current smoker [facility] Start: 06-25-1977 End: 10-07-2020 History of tobacco use Cigarette Smoker [facility] Start: 10-21-2020 End: 11-19-2022 Cigarettes smoked current (pack per day) - Reported 0.5 [facility] Start: 10-21-2020 End: 03-24-2023 Tobacco use and exposure Smokeless tobacco non-user [facility] Start: 10-31-2021 End: 08-10-2023 Alcohol intake Current non-drinker of alcohol (finding) [facility] Start: 05-27-2015 History SDOH Alcohol Comment Seldom- twice yearly [facility] Start: 1965 Sex Assigned At Not on file C [facility] Start: 11-19-2022 End: 04-23-2023 Tobacco use panel [facility] National Score (1-10 0), lower number is lower risk 70 [facility] Start: 01-22-2025 End: 01-26-2025 Sex Female (finding) [facility] Medical Equipment Procedure Code Equipment Code Equipment Origin al Text Equipment Identifier Dates TEST STRIPS TEST STRIPS [id number] Start: 08-14-2010 LANCET LANCET [id number] Start: 08-14-2010 INSULIN PEN NEEDLE [id number] Start: 08-14-2010 Comment on above: Test blood [...] Yes. Pt uses Freestyle Lite Insulinx Meter [id number] Start: 12-26-2019 use to test bloo d sugar THREE TIMES DAILY [id number] Start: 12-26-2019 Use one needle f or each dose. four/day. [id number] Start: 09-18-2019 Test blood sugar(s) 3 times daily. Dx: Type 2 DM - Uncontrolled E11.65 Insulin: Yes [id number] Start: 05-07-2016 Pen Needle,Diabetic, Disp Unit 29 gauge x 1/2 needle Start: 06-23-2021 End: 11-24-2023 Pen Needle,Diabetic, Disp Unit 29 gauge x 1/2 needle Start: 06-23-2021 End: 11-24-2023 Pen Needle,Diabetic, Disp Unit 29 gauge x 1/2 needle Start: 06-23-2021 End: 11-24-2023 Pen Needle,Diabetic, Disp Unit 29 gauge x 1/2 needle Start: 06-23-2021 End: 11-24-2023 Pen Needle,Diabetic, Disp Unit 29 gauge x 1/2 needle Start: 06-23-2021 End: 11-24-2023 Pen Needle,Diabetic, Disp Unit 29 gauge x 1/2 needle Start: 06-23-2021 End: 11-24-2023 Pen Needle,Diabetic, Disp Unit 29 gauge x 1/2 needle Start: 06-23-2021 End: 11-24-2023 Pen Needle,Diabetic, Disp Unit 29 gauge x 1/2 needle Start: 06-23-2021 End: 11-24-2023 Goals Date Patient Goal Desired Activity /State Personal health goal Functional Status Date Assessment Result Facility 01-05-2024 Functional status Bedrest [facility] Work Phone: 01-03-2024 [facility] 11-24-2023 Functional status Ambulates [facility] Work Phone: 05-21-2022 Functional status Ambulates;Beds giuseppe [facility] Work Phone: 04-25-2022 Functional status Bedpan [facility] Work Phone: 04-25-2022 Functional status None [facility] Work Phone: 03-30-2022 Functional status Ambulates;Laurent r;Bedside Commode [facility] Work Phone: 03-20-2022 Functional status Activity Abili ty Unable to Assess [facility] Work Phone: 05-27-2015 Are you deaf, or do you have serious difficulty hearing No 05/27/2015 2:20 PM Faith Vogel RN No [facility] Work Phone: 05-27-2015 Are you blind, or do you have serious difficulty seeing, even when wearing glasses No 05/27/2015 2:20 PM Faith Vogel RN No [facility] 05-27-2015 Do you have serious difficulty walking or climbing stairs No 05/27/2015 2:20 PM Faith Vogel RN No [facility] 05-27-2015 Do you have difficul ty dressing or bathing No 05/27/2015 2:20 PM EDFaith Aguillon RN No [facility] 05-27-2015 Because of a physica l, mental, or emotional condition, do you have difficulty doing errands alone such as visiting a physician's office or shopping No 05/27/2015 2:20 PM Faith Vogel RN No [facility] Mental Status Date Assessment Result Facility 01-22-2025 Cognitive function Awake;Alert;A ppropriate;Fol lows Commands [facility] Work Phone: 01-20-2024 Cognitive function Awake;Alert;A ppropriate;Fol lows Commands [facility] Work Phone: 01-05-2024 Cognitive function Voice/Name [facility] Work Phone: 01-03-2024 Cognitive function Voice/Name [facility] Work Phone: 01-01-2024 Cognitive function Voice/Name [facility] Work Phone: 11-24-2023 Cognitive function Voice/Name [facility] Work Phone: 11-19-2023 Cognitive function Level Of Cons ciousness Awake;Alert;Appropriate;Fol lows Commands [facility] Work Phone: 06-06-2023 Cognitive function Level Of Cons ciousness Awake;Alert;Appropriate;Fol lows Commands [facility] Work Phone: 01-29-2023 Cognitive function Awake;Alert;A ppropriate;Fol lows Commands [facility] Work Phone: 11-05-2022 Cognitive function Voice/Name [facility] Work Phone: 08-24-2022 Cognitive function Voice/Name [facility] Work Phone: 05-21-2022 Cognitive function Voice/Name [facility] Work Phone: 05-20-2022 Cognitive function Level Of Cons ciousness Awake;Alert;Appropriate;Fol lows Commands [facility] Work Phone: 05-03-2022 Cognitive function Awake;Alert;A ppropriate;Fol lows Commands [facility] Work Phone: 04-25-2022 Cognitive function Voice/Name [facility] Work Phone: 03-30-2022 Cognitive function Comprehension Ability Demonstrates ability to follow instructions/comprehend [facility] Work Phone: 03-30-2022 Cognitive function Level Of Cons ciousness Awake;Alert [facility] Work Phone: 03-29-2022 Cognitive function Voice/Name [facility] Work Phone: 03-20-2022 Cognitive function Voice/Name [facility] Work Phone: 02-24-2022 Cognitive function Voice/Name [facility] Work Phone: 01-13-2022 Cognitive function Level Of Cons ciousness Awake;Alert;Appropriate;Fol lows Commands [facility] Work Phone: 05-27-2015 Because of a physica l, mental, or emotional condition, do you have serious difficulty concentrating, remembering, or making decisions No 05/27/2015 2:20 PM Faith Vogel RN No [facility] Clinical Notes 07-23-2015 to 03-21-2025 Kimmy Jackson - 03/21/2025 12:26 PM Raisa Haley - 03/20/2025 12:25 PM EDTFElizabeht mason, [facility] - 02/12/2025 11:26 AM EDT Note Date & Type Note Facility 03-21-2025 Note HNO ID: [id number] Author: ?, ?, ? Service: ? Author Type: ? Type: Progress Notes Filed: 04/12/2025 13:13 Note Text: Diabetes Outreach Terrance Brar has been identified for clinical review due to having diabetes without a Hemoglobin A1c in the past 1 year. PSS Team - Please contact the patient with the following script: Dwayne Lopez MD has identified that you are in need of ongoing care of your diabetes and have not had blood work for your diabetes (hemoglobin A1c) in the past year. We would like to assist you in making an appointment to ensure that we control your diabetes and keep you as healthy as possible. Outreach Outcome/Action: Unable to reach patient: Due to phone issue in [facility] unable to call out to this number Note - if they see another provider, please update their chart. [facility] 03-21-2025 History of Present illness Narrative Diabetes Outreach Terrance Brar has been identified for clinical review due to having diabetes without a Hemoglobin A1c in the past 1 year. PSS Team - Please contact the patient with the following script: Dwayne Lopez MD has identified that you are in need of ongoing care of your diabetes and have not had blood work for your diabetes (hemoglobin A1c) in the past year. We would like to assist you in making an appointment to ensure that we control your diabetes and keep you as healthy as possible. Outreach Outcome/Action: Unable to reach patient: Due to phone issue in [facility] unable to call out to this number Note - if they see another provider, please update their chart. documented in this encounter [facility] 03-21-2025 Note Patient Outreach (4C Q) TERRANCE BRAR ([id number]) 1965 F Date Time Provider Department 03/21/25 DWAYNE LOPEZ 4CQ During your visit today, we recorded the following information about you: [place] Amy Kimmy 04/12/2025 1:13 PM Signed Diabetes Outreach eTrrance Brar has been identified for clinical review due to having diabetes without a Hemoglobin A1c in the past 1 year. PSS Team - Please contact the patient with the following script: Dwayne Lopez MD has identified that you are in need of ongoing care of your diabetes and have not had blood work for your diabetes (hemoglobin A1c) in the past year. We would like to assist you in making an appointment to ensure that we control your diabetes and keep you as healthy as possible. Outreach Outcome/Action: Unable to reach patient: Due [...] blood sugar THREE TIMES DAILY - Insulin Palmetto, Disposable, (BD ULTRA-FINE BEN PEN NEEDLE) 32 [...] [E04.1] 12/07/2008 Routine General Medical Examination at [facility]*12/10/2008 06/03/2015 Benign neoplasm of colon [D12.6] 05/15/2014 [...] 06/21/2017 Trigger fin (more content not included)... [facility] 03-20-2025 Note HNO ID: [id number] Author: ?, ?, ? Service: ? Author [...] Treatment - End Outreach Navigation Signature: Raisa Maher [facility] March 20, 2025 12:25 PM [facility] 03-20-2025 History of Present illness Narrative [...] 2025 12:25 PM documented in this encounter [facility] 03-20-2025 Note Patient Outreach (CHRISTIANO TNAV) TERRANCE BRAR ([id number]) 1965 F Date Time Provider Department 03/20/25 [...] Visit: Population Health Navigation Outreach [3910] Cmt: Nicolejosé manuel Wesley Trujillo Prescriptions as of 03/20/2025 - dulaglutide [...] blood sugar THREE TIMES DAILY - Insulin Palmetto, Disposable, (BD ULTRA-FINE BEN PEN NEEDLE) 32 [...] [E04.1] 12/07/2008 Routine General Medical Examination at [facility]*12/10/2008 06/03/2015 Benign neoplasm of colon [D12.6] 05/15/2014 [...] finger [M65.351] 0 (more content not included)... [facility] 02-12-2025 History of Present illness Narrative Primary Care Pharmacy Panel Management This patient has been identified through Specialty Integration/Value-Based Operations Diabetes Registry Review by the primary care pharmacy team. After review, determined that the patient is not a candidate for pharmacy referral at this time due to questionable attribution. Elizabeth Jennings RPh documented in this encounter [facility] 02-12-2025 Note HNO ID: [id number] Author: ELIZABETH JENNINGS RPh Service: ? Author Type: Pharmacist Type: Progress Notes Filed: 02/12/2025 11:27 Note Text: Primary Care Pharmacy Panel Management This patient has been identified through Specialty Integration/Value-Based Operations Diabetes Registry Review by the primary care pharmacy team. After review, determined that the patient is not a candidate for pharmacy referral at this time due to questionable attribution. Elizabeth Jennings RPh [facility] 02-12-2025 Note Patient Outreach (ELISE MEPaolaO) TERRANCE BRAR ([id number]) 1965 F Date Time Provider Department 02/12/25 ELIZABETH JENNINGS PHMEJUVENTINO During your visit today, [...] time due to questionable attribution. Elizabeth Jennings [facility] Allergies As of Date: 02/12/2025 Noted Allergy [...] swelling Date Reviewed: 08/10/2023 Reviewed by: Edda Lraios LPN - Fully Assessed Prescriptions as of [...] blood sugar THREE TIMES DAILY - Insulin Palmetto, Disposable, (BD ULTRA-FINE BEN PEN NEEDLE) 32 [...] [E04.1] 12/07/2008 Routine General Medical Examination at [facility]*12/10/2008 06/03/2015 Benign neoplasm of colon [D12.6] 05/15/2014 [...] mass, left [N6 (more content not included)... [facility] 02-06-2025 Note Patient Outreach (FA MPWS) TERRANCE BRAR ([id number]) 1965 F Date Time Provider Department 02/06/25 [...] for screening mammogram for breast cancer [Z12.31] Order(s):[facility] SCREENING [facility]KE [[id number]] Order #: [id number] FUTURE Prescriptions as of 03/09/2025 - dulaglutide [...] blood sugar THREE TIMES DAILY - Insulin Palmetto, Disposable, (BD ULTRA-FINE BEN PEN NEEDLE) 32 [...] [E04.1] 12/07/2008 Routine General Medical Examination at [facility]*12/10/2008 06/03/2015 Benign neoplasm of colon [D12.6] 05/15/2014 [...] dependence, continuous (HCC (more content not included)... 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 Service: ? Author Type: ? Type: Progress Notes Filed: 01/05/2025 13:14 Note Text: Patient is identified through a medication adherence outreach initiative based on pharmacy claims data from: [employer] Medication Adherence Category: Statins First Review Attribution Status: Correctly Attributed but Patient in SNF Syeda Markham [facility] Based [facility] Pharm[facility] Team[facility] History of Present illness Narrative* Syeda Markham - 01/05/2025 1:13 PM EDT Patient is identified through a medication adherence outreach initiative based on pharmacy claims data from: [employer] Medication Adherence Category: Statins First Review Attribution Status: Correctly Attributed but Patient in [facility] Syeda Porsha Markham [facility] Pharmacy Team documented in this encounterUniversity Hospitals Health System03-14-2025 NotePatient Outreach (PHPOHE) TERRANCE BRAR ([id number]) 1965 F Date Time Provider Department 01/05/25 DWAYNE LOPEZ PHPOHE During your visit today, we recorded the following information about you: Syeda Markham 01/05/2025 1:14 PM Signed Patient is identified through a medication adherence outreach initiative based on pharmacy claims data from: [employer] Medication Adherence Category: Statins First Review Attribution Status: Correctly Attributed but Patient in [facility] Syeda Story Rashi [facility] Care Pharmacy Team Allergies As of Date: [...] blood sugar THREE TIMES DAILY - Insulin Palmetto, Disposable, (BD ULTRA-FINE BEN PEN NEEDLE) 32 [...] 12/07/2008 Routine General Medical Examination at a [facility]*12/10/2008 06/03/2015 Benign neoplasm of colon [D12.6] [...] Hyponatremia [E87.1] 09/18/2019 Eczema (more content not included)...[facility]02-05-2025 Note HNO ID: [id number] Author: ASHISH BRAY MA Service: ? Author Type: Electrical Power Engineer Type: Progress Notes Filed: 11/29/2024 14:54 Note Text: POPULATION HEALTH NAVIGATION OUTREACH Action/FYI msg to [...] Ashish Bray MA November 29, 2024 2:51 PMCUniversity [facility] History of Present illness Narrative* Ashish Bray [...] 29, 2024 2:51 PM documented in this encounterUniversity Hospitals Health System02-05-2025 NotePatient Outreach (NETNAV) TERRANCE BRAR ([id number]) 1965 F Date Time Provider Department 11/29/24 [...] blood sugar THREE TIMES DAILY - Insulin Palmetto, Disposable, (BD ULTRA-FINE BEN PEN NEEDLE) 32 [...] [E04.1] 12/07/2008 Routine General Medical Examination at [facility]*12/10/2008 06/03/2015 Benign neoplasm of colon [D12.6] 05/15/2014 [...] [M65.331] 06/21/2017 Trigger finger, (more content not included)...[facility] 09-08-2024 NoteHNO ID: [id number] Author: IRENA WILD, ? Service: ? Author Type: Patient Terrazzo Laborer Type: Progress Notes Filed: 09/08/2024 10:26 Note Text: POPULATION HEALTH NAVIGATION OUTREACH Action/FYI Vinh No PCP Pt is established with Dr. Lopez; PCP updated Reason for Outreach Care Gap/HCC or Scheduling Wellness Visits Care Gaps due: N/A Patient Contacted: Unable or unnecessary to reach patient: PCP field updated Navigation Signature: Irena Wild September 08, 2024 10:[address] [facility]11-15-2024 History of Present illness Narrative* Irena [...] 08, 2024 10:25 AM documented in this encounterUniversity Hospitals Health System11-15-2024 NotePatient Outreach (NETNAV) TERRANCE BRAR ([id number]) 1965 F Date Time Provider Department 09/08/24 IRENA WILD NETNAV During your visit today, we recorded the following information about you: Irena Wild 09/08/2024 10:26 AM Addendum POPULATION HEALTH NAVIGATION OUTREACH Action/JOEL Justice No [...] blood sugar THREE TIMES DAILY - Insulin Palmetto, Disposable, (BD ULTRA-FINE BEN PEN NEEDLE) 32 [...] [E04.1] 12/07/2008 Routine General Medical Examination at [facility]*12/10/2008 06/03/2015 Benign neoplasm of colon [D12.6] 05/15/2014 [...] or gangr*09/04/2019 Lumbar radiculop (more content not included)...[facility] 04-06-2024 History of Present illness Narrative* [...] Pt currently resides @ [facility] and follows a provider @ the facility Placed pt on attrib list for Vinh Patient seen in ED: Out of Network ED Contact made with Patient: Yes The patient was identified by Name and Date of . Discussed Care with: patient Patient was seen in the Emergency Department (ED) Location: [place] Date: 04/02/24 Reason for ED Visit: CP and blood sugar 44 ED Intervention: cardiac enzymes,EKG per pt Currently experiencing nausea and vomiting but BRUSH CLEARING LABORER in to see pt today regarding current symptoms Based on assessment clinician, the following disposition is advised: No symptoms or symptoms present, not severe. Routed to: No Action Needed JUAN Education Provided this Outreach: No Mel Peacock RN April 06, 2024 11:01 AM documented in this encounterUniversity Hospitals Health System06-04-2024 History of Present illness Narrative* Mel Peacock [...] Out of Network ED ER vs to [facility] on 03/24/24 Contact made with Patient: No, [...] Out of Network ED ER vs to [facility] on 03/24/24 Contact made with Patient: No, left message. Mel Peacock RN March 28, 2024 11:51 AM documented in this encounterUniversity Hospitals Health System05-29-2024 Telephone encounter Note * Telephone Encounter - Shonda Valladares LPN - 03/22/2024 2:08 PM EDT Patient scheduled for 04/18/2024 at 1220 with Jesica Mina. Shonda Valladares LPN [facility]05-29-2024 Miscellaneous Notes* Telephone Encounter - Shonda Valladares LPN - 03/22/2024 2:08 PM EDT Patient scheduled for 04/18/2024 at 1220 with Jesica Ottlogzachary. Shonda Valladares LPN * Telephone Encounter - [...] 21, 2024 5:24 PM documented in this encounterUniversity Hospitals Health System05-28-2024 Telephone encounter Note * Telephone Encounter - Dwayne Lopez MD - 03/21/2024 6:38 PM EDT Patient overdue for OV. Please call to schedule appointment in the next 1 month. . [facility]05-28-2024 Telephone encounter Note* Telephone Encounter - Syeda Markham - 03/21/2024 5:24 PM EDT Patient reviewed for Population Health Medication Adherence Pended the following prescription(s) for review. Requested Prescriptions Pending Prescriptions Disp Refills atorvastatin (LIPITOR) 40 mg tablet 90 tablet 3 Sig: Take 1 tablet by mouth once daily. No future appointments. Please review and refill if appropriate. Thank you. Syeda Markham March 21, 2024 5:24 PM [facility]04-25-2024 History of Present illness Narrative* Annabel Agrawal MA - 02/17/2024 7:06 AM EDT POPULATION HEALTH NAVIGATION OUTREACH Action/FYI Patient is on [facility] SARITA 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 Workbench list for below [...] 17, 2024 7:07 AM documented in this encounterUniversity Hospitals Health System04-18-2024 History of Present illness Narrative* Ariadna Kyle - 02/10/2024 10:45 AM EDT Terrance Brar is identified through a medication adherence outreach initiative based on pharmacy claims data from [employer] (insurer) for Non-insulin DM medication(s). Patient is [...] reconcile dispense Ariadna Kyle documented in this encounterUniversity Hospitals Health System04-01-2024 Miscellaneous Notes* Telephone Encounter - Rachel Perea LPN - 01/24/2024 12:59 PM EDT Phoned patient to schedule ER follow up visit. Patient reported she is not able to come in this week due their car is being repaired. Agreed to 02/01/24 at 2pm for 40 min visit. documented in this encounterUniversity Hospitals Health System03-28-2024 Discharge summary Author Ellis Peterson [facility] January 20, 2024 4:19am Note Date/Time January 20, 2024 1:2 2am [facility] Medical Records Department [address] [place] [address] Emergency Department Summary 01/20/24 MR#: [id number] Acct: [id number] Name: TERRANCE BRAR Rep #:[id number] : 1965 58 From: Ellis Peterson MD PCP: Dr. Jarred Lopez MD Status :REG ER Location: ED HPI History of Present Illness Chief Complaint: Chest Pain Narrative Narrative: 58-year-old female presents from [facility] with sharp, stabbing chest pain that awoke her from sleep. She states it radiates to her neck. She states that she has history of blood clots around my heart but is unsure if she is on [...] chest pain that awoke her from sleep. [facility] Medical History Anxiety and depression Carpal [...] for therapy for chronic back pain housing: detention Smoking Status: Former smoker Tobacco: How many [...] for pain and nausea, I reviewed her detention paperwork and she has history of chronic pain. She was given 1 oxycodone tablet here and Zofran ODT. As long as her second troponin does not show a large delta troponin, I do feel that she would be able to be discharged back to the long term facility. As her second troponin is 21 and she has a negative delta troponin, I feel she can be discharged to follow-up. Disposition is discharged to the long term facility in stable condition. History & Record [...] % (Auto) 58.1 Lymph % (Auto) 34.1 Island % (Auto) 5.5 Eos % (Auto) 1.4 [...] 3-5 Days if not improving Disposition Disposition: [facility] Facility Discharge Location: [facility] What to do if you have Problems For any increased pain, shortness of breath, bleeding, nausea or vomiting, chestpain, or any unexpected problems, contact your Primary Care Provider. Call [facility] ([phone]) or report to the closest Emergency Room. Call 911 if necessary. 01/20/24418 <Electronically signed by Ellis Peterson MD> Cosigner Signature (if applicable): CC: Dr. Jarred Lopez MD ~ Signed [facility] Work Phone: 1(402) 351-595803-14-2024 History of Present illness Narrative* Rachel Perea LPN - 01/06/2024 1:34 PM EDT TRANSITION CARE MANAGEMENT (TCM) INITIAL CONTACT Electrical Power Engineer Outreach Provider Action/FYI: Initial contact with patient post discharge, spoke to patient. Patient identified by name and . TRANSITION CARE MANAGEMENT INITIAL OUTREACH DOCUMENTATION: 01/06/2024 Date of Outreach: Outreach Attempt 1: Contact Made Date of Discharge 01/05/2024 SUMMARY: -Pt discharged from [facility] on 01/05/24. -Admitted for:1) PE 2)Chest pressure [...] hospitalization: Provider reviewed 01/06/24 documented in this encounterUniversity Hospitals Health System03-14-2024 Miscellaneous Notes* Telephone Encounter - Rachel Perea LPN - 01/06/2024 12:57 PM EDT Phoned patient and agreeable with 01/13/24 at 2pm for Hosp F/U documented in this encounterUniversity Hospitals Health System03-13-2024 Discharge summary Author Ana Rivera [facility] January 05, 2024 11:34am Note Date/Time January 05, 2024 11: 34am [facility] Medical Records Department [address] [place] [address] [address] [facility] MR#: [id number] Acct: [id number] Name: TERRANCE BRAR Rep #:[id number] : 1965 58 From: Ana Rivera DO [...] THE F. 01/05/24 1134<Electronically signed by Ana Miguel DO> Diet Diet Order/Speech Therapy: 01/01/24 23:36 [...] weeks Please Follow Up With: Miriam Cameron NP, BRUSH CLEARING LABORER-C When: 1 month Discharge Plan Admission Admit [...] MD [Primary Care Provider] - Miriam Cameron BRUSH CLEARING LABORER, BRUSH CLEARING LABORER-C [Non-Staff -Ordering Privileges] - Within 1 Month (CAD follow up) Disposition Disposition (needs filled in before D/C Order can be placed): [facility] Facility 01/05/24 1134 <Electronically signed by Ana Rivera DO> Cosigner Signature (if applicable): CC: Dr. Chavez Alcala DO; Dr. Hansa Cast MD; Dr. Jarred Lopez MD ~ [facility] Work Phone: 1(354) 820-870103-13-2024 Discharge summary Author Ana Rivera [facility] January 05, 2024 11:32am Note Date/Time January 05, 2024 11: 17am [facility] Medical Records Department [address] [place] [address] Discharge Summary 01/05/24 1116 MR#: [id number] Acct: [id number] Name: TERRANCE BRAR Rep #:[id number] : 1965 58 From: Ana Rivera DO PCP: Dr. Jarred Lopez MD Status :ADM HOMER Location: [place] [address] Providers Date of Admission: 01/01/24 Date of [...] who presented to the emergency department at [facility] from her long term facility for acute onset chest pain with [...] since she has followed up with her certified orthoptist. She was strongly encouraged to continue incentive [...] skilled services so she was discharged to [facility] after pre-CERT was obtained [...] given w/in hospital stay or rx'd at vt?: No Pt receive overlap for 5 days?: [...] [Primary Care Provider] - Miriam Cameron NP, BRUSH CLEARING LABORER-C [Non-Staff -Ordering Privileges] - Within 1 Month (CAD follow up) Disposition Disposition (needs filled in before D/C Order can be placed): [facility] Facility Charges/Coding Visit Charges Inpatient E&M: 07658 SNF Disch >30 Min 01/05/24 1132 <Electronically signed by Ana Rivera DO> Cosigner Signature (if applicable): CC: BRUSH CLEARING LABORER-C Miriam Cameron; Dr. Jarred Lopez MD; Dr. Ana Rivera DO~ Signed [facility] Work Phone: 1(295) 113-366603-12-2024 Progress note Author Ana Rivera [facility] January 04, 2024 4:59pm Note Date/Time January 04, 2024 5:0 0pm [facility] Medical Records Department [address] [place] [address] Progress Note - Hospitalist 01/04/24 1655 MR#: [id number] Acct: [id number] Name: TERRANCE BRAR Rep #:[id number] : 1965 58 From: Ana Rivera DO PCP: Dr. Jarred Lopez MD Status :ADM HOMER Location: [place] [address] Reason for Visit Reason for Visit: Chest [...] % (Auto) 60.6, Lymph % (Auto) 31.0, Island % (Auto) 5.1, Eos % (Auto) 1.3, [...] -Plan is discharge back to skilled facility ([facility] once pre-CERT is obtained -Patient is medically [...] is obtained Charges/Coding Visit Charges Inpatient E&M: 47000 Subs Hosp L2 01/04/24 1655 <Electronically signed by Ana Rivera DO> Cosigner Signature (if applicable): CC: ~ Signed [facility] Work Phone: 1(536) 857-659703-11-2024 Progress note Author Ana Rivera [facility] January 03, 2024 7:27pm Note Date/Time January 03, 2024 7:1 3pm [facility] Medical Records Department [address] [place] [address] Progress Note - Hospitalist 01/03/24 1901 MR#: [id number] Acct: [id number] Name: TERRANCE BRAR Rep #:[id number] : 1965 58 From: Ana Rivera DO PCP: Dr. Jarred Lopez MD Status :ADM HOMER Location: [place] [address] Reason for Visit Reason for Visit: Chest pain Subjective Subjective Ms. Brar is a 58-year-old white female who presented to the emergency department at [facility] from her long term facility for acute onset chest pain with [...] Physician: Chavez Alcala Performed By: Ezequiel Dobson [facility] Physical Exam Const alert, oriented x3, no [...] -Plan is discharge back to skilled facility ([facility] once pre-CERT is obtained -Patient is medically [...] is obtained Charges/Coding Visit Charges Inpatient E&M: 35097 Subs Hosp L2 01/03/241926 <Electronically signed by Ana Rivera DO> Cosigner Signature (if applicable): CC: ~ Signed [facility] Work Phone: 1(691) 472-513103-10-2024 Progress note Author Chavez zaida [facility] January 02, 2024 4:34pm Note Date/Time January 02, 2024 12: 04pm [facility] Medical Records Department [address] [place] [address] Progress Note - Hospitalist 01/02/24 1204 MR#: [id number] Acct: [id number] Name: TERRANCE BRAR Rep #:[id number] : 1965 58 From: Chavez mayo DO PCP: Dr. Jarred Lopez MD Status :ADM HOMER Location: [place] [address] Reason for Visit Reason for Visit: Diagnoses [...] % (Auto) 66.7, Lymph % (Auto) 26.5, Island % (Auto) 4.7, Eos % (Auto) 0.8, [...] Std Deviation 44.0 H, RDW Coeff of Ansia 13.4, Plt Count 279, MPV 9.7, Immature Gran % (Auto) 1.700 H, Neut % (Auto) 60.2, Lymph % (Auto) 31.4, Island % (Auto) 5.2, Eos % (Auto) 1.1, [...] is a 58-year-old female who presented to [facility] ED on 01/01/2024 from SNF for chest [...] back pain ? Patient recently hospitalized at [facility] from 11/19-11/24. Was noted to have fairlysevere deconditioning during that hospitalization that apparently was worsened by her chronic back pain. Was discharged to SNF at that time. Has remained at that SNF ([facility]) since then and suspect that she has [...] Cosigner Signature (if applicable): CC: ~ Signed [facility] Work Phone: [phone]) 204-202403-10-2024 History and physical note Author Hansa Cast [facility] January 01, 2024 11:38pm Note Date/Time January 01, 2024 10:3 2pm [facility] Medical Records Department [address] [place] [address] H&P Exam - Hospitalist 01/01/245 MR#: [id number] Acct: [id number] Name: TERRANCE BRAR Rep #:[id number] : 1965 58 From: Hansa Cast MD PCP: Dr. Jarred oLpez MD Status :ADM HOMER Location: [place] [address] HPI - General General Date of Admission: [...] prior opiate abuse who presents to the [facility] ED on 01/01/2024 with history of chest [...] therapeutic 80 mg subcu regimen x 1. [facility] Medical History (Updated 01/01/24 @ 23:32 by [...] for therapy for chronic back pain housing: detention Smoking Status: Former smoker Tobacco: How many [...] % (Auto) 66.7, Lymph % (Auto) 26.5, Island % (Auto) 4.7, Eos % (Auto) 0.8, [...] prior opiate abuse who presents to the [facility] ED on 01/01/2024 with history of chest [...] Code status. Charges/Coding Visit Charges Inpatient E&M: 84723 Init Hosp L3 01/01/24 4161 <Electronically signed by Hansa Cast MD> Cosigner Signature (if applicable): CC: Dr. Hansa Cast MD; Dr. Jarred Lopez MD~ Signed [facility] Work Phone: 1(599) 835-903703-10-2024 Discharge summary Author Raisa cM [facility] January 01, 2024 10:58pm Note Date/Time January 01, 2024 6:48 pm [facility] Medical Records Department [address] [place] [address] Emergency Department Summary 01/01/24 MR#: [id number] Acct: [id number] Name: TERRANCE BRAR Rep #:[id number] : 1965 58 From: Raisa Mc MD [...] been ongoing for the past several days. [facility] Medical History Carpal tunnel syndrome Chronic [...] for therapy for chronic back pain housing: detention Smoking Status: Former smoker Tobacco: How many [...] Medical decision making narrative: Patient placed on site monitor. IV line initiated. EKG obtained to [...] % (Auto) 66.7 Lymph % (Auto) 26.5 Island % (Auto) 4.7 Eos % (Auto) 0.8 [...] Provider] - Disposition Disposition: Acute Care Hospital [facility] What to do if you have Problems For any increased pain, shortness of breath, bleeding, nausea or vomiting, chestpain, or any unexpected problems, contact your Primary Care Provider. Call [facility] ([phone]) or report to the closest Emergency Room. Call 911 if necessary. 01/01/24 3972 <Electronically signed by Raisa Mc MD> Cosigner Signature (if applicable): CC: Dr. Jarred Lopez MD ~ Signed [facility] Work Phone: 1(605) 479-525803-09-2024 Discharge summary Author Raisa Mc [facility] January 01, 2024 10:58pm Note Date/Time January 01, 2024 6:48 pm [facility] Medical Records Department [address] [place] [address] Emergency Department Summary 01/01/24 MR#: [id number] Acct: [id number] Name: TERRANCE BRAR Rep #:[id number] : 1965 58 From: Raisa Mc MD [...] been ongoing for the past several days. [facility] Medical History Carpal tunnel syndrome Chronic [...] for therapy for chronic back pain housing: detention Smoking Status: Former smoker Tobacco: How many [...] Medical decision making narrative: Patient placed on site monitor. IV line initiated. EKG obtained to [...] % (Auto) 66.7 Lymph % (Auto) 26.5 Island % (Auto) 4.7 Eos % (Auto) 0.8 [...] Provider] - Disposition Disposition: Acute Care Hospital [facility] What to do if you have Problems For any increased pain, shortness of breath, bleeding, nausea or vomiting, chestpain, or any unexpected problems, contact your Primary Care Provider. Call [facility] ([phone]) or report to the closest Emergency Room. Call 911 if necessary. 01/01/24 0403 <Electronically signed by Raisa Mc MD> Cosigner Signature (if applicable): CC: Dr. Jarred Lopez MD ~ Signed [facility] Work Phone: 1(144) 523-571211-27-2023 History of Present illness Narrative* Ariadna Kyle - 09/20/2023 8:48 AM EST Terrance Brar is identified through a medication adherence outreach initiative based on pharmacy claims data from [employer] (insurer) for Statin medication(s). Patient is reviewed [...] Left message Ariadna Kyle documented in this encounterUniversity Hospitals Health System10-27-2023 History of Present illness Narrative* Sharonda Sanchez - 08/20/2023 4:22 PM EDT Terrance Brar is identified through a medication adherence outreach initiative based on pharmacy claims data from [employer] (insurer) for Non-insulin DM medication(s) and Statin [...] Both were out of refill Sharonda Sanchez Form Drafter documented in this encounterUniversity Hospitals Health System10-25-2023 Miscellaneous Notes* Telephone Encounter - Mary Ellen [...] Time Provider Department Center 08/26/2023 1:40 PM Jesica Mina APRN.[facility] Please review and refill if appropriate. Thank you. Sharonda Sanchez August 18, 2023 4:11 PM documented in this encounterCleveland [phone] History of Present illness Narrative* Irena Hood [...] Care Gap or Scheduling/Wellness visits Payer: Payor: [employer] / Plan: [employer] HMO / Product Type: HMO / Care [...] 18, 2023 7:58 AM documented in this encounterUniversity Hospitals Health System08-31-2023 Miscellaneous Notes* Telephone Encounter - Anh Simms [...] ER follow up visit. documented in this encounterUniversity Hospitals Health System08-17-2023 Miscellaneous Notes* Telephone Encounter - Miguel Ángel Santoyo LPN - 06/10/2023 1:50 PM EDT Pt notified of Dr Lopez's message. Pt verbalizes understanding. Advises that she will go to [facility] as instructed. Miguel Ángel Santoyo LPN * Telephone Encounter - Dwayne Lopez MD - 06/10/2023 1:38 PM EDT Recommend ER for disimpaction of hard stool in rectum and constipation x1 week. * Telephone Encounter - Mindi Temple RN - 06/10/2023 1:09 PM EDT Patient calling to say she is very constipated. Has not had BM in one week. She feels hard stool in rectum but unable to pass. Has been straining x 2 days with blood on toilet tissue and in brief. She has already tried stool softener, Miralax and 10 ounces Magnesium Citrate one hour ago. She saysshe was in [facility] on 06/04 with abdominal pain [...] water/day 8. MEDICATIONS: Says she was in [facility] ER on 06/04 with abdominal [...] hemorrhoids, rectal surgery, rectal fissure Protocols used: [id number] documented in this encounterUniversity Hospitals Health System08-13-2023 Discharge summary Author Raúl Alejo [facility] June 06, 2023 10:50pm Note Date/Time June 06, 2023 6: 00pm [facility] Medical Records Department [address] [place] [address] Emergency Department Summary 06/06/23 MR#: [id number] Acct: [id number] Name: TERRANCE BRAR Rep #:[id number] : 1965 57 From: Bronson Retana MD PCP: Dr. Jarred Lopez MD Status :REG ER Location: ED ADDENDUM by Dr. Raúl Alejo DO on 06/06/23 at 2250 Patient signed out to or recheck glucose prior to disposition. Per nursing [...] pen needle,diabetic, disp unit 29 gauge x 1/2, remover and disposal unit #100 ea 06/23/21 [...] for therapy for chronic back pain housing: detention Smoking Status: Former smoker Tobacco: How many [...] (Auto) 50.5 Lymph % (Auto) 44.0 [place] % (Auto) 3.3 Eos % (Auto) 0.9 [...] pen needle,diabetic, disp unit 29 gauge x 1/2 needle See Rx Instructions .ROUTE .MEDSUPPLY Qty: [...] your Primary Care Provider. Call [facility] ([phone]) or report to the closest Emergency Room. Call 911 if necessary. 06/06/232237 <Electronically signed by Bronson Retana MD> Cosigner Signature (if applicable): CC: Dr. Jarred Lopez MD ~ Signed [facility] Work Phone: [phone]) 306-545508-11-2023 Discharge summary Author Bronson Retana [facility] June 04, 2023 9:29pm Note Date/Time June 04, 2023 5: 36pm [facility] Medical Records Department [address] [place] [address] Emergency Department Summary 06/04/23 MR#: [id number] Acct: [id number] Name: TERRANCE BRAR Rep #:[id number] : 1965 57 From: Bronson Retana MD [...] pen needle,diabetic, disp unit 29 gauge x 1/2, remover and disposal unit #100 ea 06/23/21 [...] for therapy for chronic back pain housing: detention Smoking Status: Former smoker Tobacco: How many [...] % (Auto) 55.4 Lymph % (Auto) 39.6 Island % (Auto) 3.2 Eos % (Auto) 0.5 [...] Clarity Clear Urine pH 6.5 Ur Specific [place] 1.010 Urine Protein 30 H Urine Glucose [...] pen needle,diabetic, disp unit 29 gauge x 1/2 needle See Rx Instructions .ROUTE .MEDSUPPLY Qty: [...] your Primary Care Provider. Call [facility] ([phone]) or report to the closest Emergency Room. Call 911 if necessary. 06/04/232127 <Electronically signed by Bronson Retana MD> Cosigner Signature (if applicable): CC: Dr. Jarred Lopez MD ~ Signed ADDENDUM by Dr. Bronson Retana MD on 06/04/23 at 2129 Blood sugar prior to discharge was 271 and improving. 06/04/232128<Electronically signed by Bronson Retana MD> Cosigner Signature (if applicable): cc: Dr. Jarred Lopez MD ~* Signed [facility] Work Phone: [phone]) 751-584308-11-2023 Hospital Discharge instructions Additional Instructions No specific [...] 3 to 5 days. Return if feeling worse.[facility] Work Phone: [phone]) 968-287507-31-2023 Miscellaneous Notes* Telephone Encounter - Lubna Montgomery [...] Department Center 07/09/2023 1:00 PM Jesica Mina APRN.SIGNING AGENT [facility] Please review and refill if appropriate. Thank you. Debra Greer May 20, 2023 2:17 PM documented in this encounterUniversity Hospitals Health System07-27-2023 History of Present illness Narrative* Debra Greer - 05/20/2023 2:14 PM EDT Terrance Brar is identified through a medication adherence outreach initiative based on pharmacy claims data from [employer] (insurer) for Non-insulin DM medication(s) and Statin [...] refills remaining Debra Greer documented in this encounterUniversity Hospitals Health System07-11-2023 History of Present illness Narrative* Ariadna Kyle - 05/04/2023 2:13 PM EDT Terrance Brar is identified through a medication adherence outreach initiative based on pharmacy claims data from [employer] (insurer) for Non-insulin DM medication(s) and Statin [...] no answer Ariadna Kyle documented in this encounterUniversity Hospitals Health System06-30-2023 History of Present illness Narrative* Vernon Degroot APRN.SIGNING AGENT - 04/23/2023 2:50 PM EDT Images from [...] test blood sugar THREE TIMES DAILY Insulin Palmetto, Disposable, (BD ULTRA-FINE BEN PEN NEEDLE) 32 [...] and atraumatic. Nose: Nose normal. Mouth/Throat: Lips: [place]. Mouth: Mucous membranes are moist. Pharynx: [...] CAPSULE Vernon Degroot APRN.DEYANIRA documented in this encounterUniversity Hospitals Health System06-15-2023 History of Present illness Narrative* Shital Menezes - 04/08/2023 1:51 PM EDT POPULATION HEALTH NAVIGATION OUTREACH Action/FYI Pt scheduled Patient Identified by Name and : YES, via phone Outreach Outcome/Action Spoke to patient / parent / legal guardian: Patient scheduled Did you use a PCP flex slot to schedule this appointment? No Reason for Outreach Care Gap or Scheduling/Wellness visits Payer: Payor: [employer] / Plan: [employer] HMO / Product Type: HMO / Care [...] 08, 2023 1:51 PM documented in this encounterUniversity Hospitals Health System06-14-2023 Miscellaneous Notes* Telephone Encounter - Shonda Valladares [...] office. Mariama Sandoval MA documented in this encounterUniversity Hospitals Health System06-14-2023 History of Present illness Narrative* Dwayne Lopez MD - 04/07/2023 1:18 PM EDT Chief Complaint Patient presents with: SNF d/c follow up HPI Jenniferneil Brar is a 57 year old female who presents here today for Above Complaints.. Patient had been a resident of [facility] since 03/2022 with discharge on 03/25. Admittedinitially [...] for handicap placard. Patient also evaluated at [facility] ED on 03/28 for constipation [...] test blood sugar THREE TIMES DAILY Insulin Palmetto, Disposable, (BD ULTRA-FINE BEN PEN NEEDLE) 32 [...] which included preparing to see the patient, [id number] patient care, completing clinical documentation, obtaining and/or reviewing separately obtained history, performing a medically appropriate examination, counseling and educating the pat ient/family/caregiver, and ordering medications, tests, or procedures. Dwayne Lopez MD documented in this encounterUniversity Hospitals Health System05-31-2023 History of Present illness Narrative* Dwayne Lopez MD - 03/24/2023 10:23 AM EDT Chief Complaint Patient presents with: Establish Care HPI Terrance Brar is a 57 year old female who presents here today for Above Complaints. Accompanied today by her Shan. Patient has been a resident of [facility] since 03/2022 and is planning on being discharged tomorrow. States that she was admitted initially for weakness and inability to walk. This was attributed to her uncontrolled DM. Required 11 months of PT. I have not received any records from [facility] as of yet. Patient has paperwork today [...] test blood sugar THREE TIMES DAILY Insulin Palmetto, Disposable, (BD ULTRA-FINE BEN PEN NEEDLE) 32 [...] care visit. Will request discharge records from detention along with labs obtained 1-2 weeks ago. Dwayne Lopez MD documented in this encounterUniversity Hospitals Health System05-02-2023 History of Present illness Narrative* Sharonda Sanchez - 02/23/2023 2:40 PM EDT Terrance Brar is identified through a medication adherence outreach initiative based on pharmacy claims data from [employer] (insurer) for Non-insulin DM medication(s) and Statin [...] and per call to patient/caregiver Sharonda Sanchez Form Drafter documented in this encounterUniversity Hospitals Health System03-20-2023 History of Present illness Narrative* Aquilino Jha [...] Terrance Brar is identified through data from [employer] (insurer) as a potential candidate for statin [...] Diagnosis Date Anemia 03/12/2015 Bipolar 2 disorder ([facility]) 05/26/2018 Constipation 03/12/2015 Diabetes mellitus Excessive or frequent menstruation Hyperlipidemia associated with type 2 diabetes mellitus ([facility]) 03/12/2015 Hyperparathyroidism, unspecified ([facility]) 10/24/2008 Hypothyroidism 03/12/2015 Lumbar degenerative disc disease [...] type 2 diabetes mellitus with neurological manifestations ([facility]) 02/27/2016 Cholesterol, Total (mg/dL) Date Value 12/28/2017 [...] student documentation and outreach below. Donnell Burr [facility] PharmD BCACP documented in this encounterUniversity Hospitals Health System03-16-[address] Retana [facility] January 07, 2023 4:15pm Note Date/Time January 07, 2023 4:0 7pm [facility] Medical Records Department [address] [place] [address] Emergency Department Summary 01/07/23 MR#: [id number] Acct: [id number] Name: TERRANCE BRAR Rep #:[id number] : 1965 57 From: Bronson Retana MD [...] dysuria or hematuria. She was written for [facility] for pain they told her she could [...] pen needle,diabetic, disp unit 29 gauge x 1/2, remover and disposal unit #100 ea 06/23/21 [...] for therapy for chronic back pain housing: detention Smoking Status: Former smoker Tobacco: How many [...] tract infection. A prescription was written for [facility] which they would not let her take at the detention. She can take Percocet. She will get [...] pen needle,diabetic, disp unit 29 gauge x 1/2 needle See Rx Instructions .ROUTE .MEDSUPPLY Qty: [...] not improving Activity Restrictions/Additional Instructions: Discard the [facility] prescription. Patient has used Percocet before in the past and should be fine with this for pain. Follow-up with your doctor if not improving. Disposition Disposition: Home, Self Care What to do if you have Problems For any increased pain, shortness of breath, bleeding, nausea or vomiting, chestpain, or any unexpected problems, contact your Primary Care Provider. Call [facility] ([phone]) or report to the closest Emergency Room. Call 911 if necessary. 01/07/23 1615 <Electronically signed by Bronson Retana MD> Cosigner Signature (if applicable): CC: Dr. Lizet Linares MD ~ Signed [facility] Work Phone: 1(353) 652-657607-02-2022 Evaluation note* Diagnosis Onset Date Resolution Status Chest pain acute Chronic renal failure, stage 3a acute Elevated troponin acute History of diabetes mellitus acute Hyperlipidemia acute Normochromic normocytic anemia acute Obesity (BMI 35.0-39.9 without comorbidity) acute Opiate abuse, continuous acu te Chronic back pain chronic Depressive disorder chronic [facility] Work Phone: [phone]) 659-997106-10-2022 History of Present illness Narrative* Shital Patel MA - 04/03/2022 12:54 PM EDT POPULATION HEALTH NAVIGATION OUTREACH Action/FYI Patient is on 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
E11.69 - Hyperlipidemia associated with type 2 diabetes mellitus (HCC) - [id number] Last Billed 12/26/2019
E21.3 - Hyperparathyroidism (HCC) - [id number] Last Billed 09/18/2019
patient also due for [...] HCC or suspected condition Payer: Payor: [employer] / Plan: [employer] HMO / Product Type: HMO / Care [...] 03, 2022 12:55 PM documented in this encounterUniversity Hospitals Health System09-29-2015 History of Past illness Narrative* Problem Noted [...] of this encounter (statuses as of 04/03/2022) [facility]09-29-2015 History of Past illness Narrative* Problem Noted [...] of this encounter (statuses as of 01/21/2023) [facility]09-29-2015 History of Past illness Narrative* Problem Noted [...] of this encounter (statuses as of 02/24/2023) [facility]09-29-2015 History of Past illness Narrative* Problem Noted [...] of this encounter (statuses as of 03/24/2023) [facility]09-29-2015 History of Past illness Narrative* Problem Noted [...] of this encounter (statuses as of 04/07/2023) [facility]09-29-2015 History of Past illness Narrative* Problem Noted [...] of this encounter (statuses as of 04/08/2023) [facility]09-29-2015 History of Past illness Narrative* Problem Noted [...] of this encounter (statuses as of 04/12/2023) [facility]09-29-2015 History of Past illness Narrative* Problem Noted [...] of this encounter (statuses as of 04/23/2023) [facility]09-29-2015 History of Past illness Narrative* Problem Noted [...] of this encounter (statuses as of 05/05/2023) [facility]09-29-[facility] History of Past illness Narrative* Problem Noted [...] of this encounter (statuses as of 05/20/2023) [facility]09-29-2015 History of Past illness Narrative* Problem Noted [...] of this encounter (statuses as of 05/24/2023) [facility]09-29-2015 History of Past illness Narrative* Problem Noted [...] in 10-01 NS for eye appt in 4-09 documented as of this encounter (statuses as of 06/10/2023) [facility]09[facility] History of Past illness Narrative* Problem Noted [...] of this encounter (statuses as of 06/30/2023) [facility]09[facility] History of Past illness Narrative* Problem Noted [...] of this encounter (statuses as of 08/18/2023) [facility]09[facility] History of Past illness Narrative* Problem Noted [...] of this encounter (statuses as of 08/19/2023) [facility]09[facility] History of Past illness Narrative* Problem Noted [...] of this encounter (statuses as of 08/20/2023) [facility]09[facility] History of Past illness Narrative* Problem Noted [...] of this encounter (statuses as of 09/20/2023) [facility]09[facility] History of Past illness Narrative* Problem Noted [...] of this encounter (statuses as of 01/06/2024) [facility] History of Past illness Narrative* Problem Noted [...] of this encounter (statuses as of 01/25/2024) [facility] History of Past illness Narrative* Problem Noted [...] of this encounter (statuses as of 02/07/2024) [facility]09[facility] History of Past illness Narrative* Problem Noted [...] 12-31, 0.9 in 07-03 Alb/Creat 29 in 12-08 NS for eye appt in 01-31 documented as of this encounter (statuses as of 02/10/2024) [facility] Hospitals Health SystemEvaluation noteNo assessment information availableWMercy Health [facility] Work Phone: evaluation note* Diagnosis Onset Date Resolution Status 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 [facility] Work Phone: evaluation note* Diagnosis Onset Date Resolution Status 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 HTN (hypertension) chronic Pure hypercholesterolemia ch ronic [facility] Work Phone: Evaluation note* Diagnosis Onset Date Resolution Status Chest pain resolved [facility] Work Phone: Evaluation note* Diagnosis Onset Date Resolution Status Chest pain resolved Diabetes acute Nonspecific chest pain acute Renal insufficiency acute [facility] Work Phone: Evaluation note* Diagnosis Onset Date Resolution Status Chest pain resolved Diabetes acute Hypothyroidism acute Nonspecific chest pain acute Renal insufficiency acute [facility] Work Phone: Evaluation note* Diagnosis Onset Date Resolution Status Hyperlipidemia acute Chest pain resolved Hypothyroidism acute Nonspecific chest pain resol shirley Atherosclerotic heart diseas e of [place] coronary artery without angina pectoris acute Chest pressure acute Dizziness acute Dyspnea acute Essential hypertension acute Hyperlipidemia [facility] Work Phone: Evaluation note* Diagnosis Onset Date Resolution Status Hypothyroidism acute Nonspecific chest pain resol shirley Atherosclerotic heart diseas [place] of [place] coronary artery without angina pectoris acute Chest pressure acute Dizziness acute Dyspnea acute Essential hypertension acute Hyperlipidemia acute [facility] Work Phone: Evaluation note* Diagnosis Onset Date Resolution Status Atherosclerotic heart diseas e of [place] coronary artery without angina pectoris acute Chest pressure acute Dizziness acute Dyspnea acute Essential hypertension acute Hyperlipidemia acute Atherosclerotic heart diseas e of [place] coronary artery without angina pectoris acute Bilateral lower extremity edema acute Essential hypertension acute Hyperlipidemia acute [facility] Work Phone: Evaluation note* Diagnosis Onset Date Resolution Status Atherosclerotic heart diseas e of [place] coronary artery without angina pectoris acute Bilateral lower extremity edema acute Essential hypertension acute Hyperlipidemia acute [facility] Work Phone: Evaluation note* Diagnosis Globus sensation- Primary Gastrointestinal malfunction arising from mental factors Gastroesophageal reflux disease, unspecified whether esophagitis present documented in this encounter [facility] note* Diagnosis Onset Date Resolution Status Atherosclerotic heart diseas e of [place] coronary artery without angina pectoris acute Bilateral lower extremity edema acute Essential hypertension acute Hyperlipidemia acute Palpitations acute [facility] Work Phone: Evaluation note* Diagnosis Generalized weakness- [...] Hyperparathyroidism (HCC) Hyperparathyroidism, unspecified Opioid dependence, continuous ([facility]) Opioid type dependence, continuous documented in this encounter [facility] note* Diagnosis Toothache- Primary Unspecified disorder of the teeth and supporting structures documented in this encounter [facility] note* Diagnosis Onset Date Resolution Status Acute leg pain acute Diabetes mellitus with hyperglycemia acute Diarrhea acute Nausea acute [facility] Work Phone: Evaluation note* Diagnosis Onset Date Resolution Status Diarrhea acute Acute leg pain resolved Diabetes mellitus with hyperglycemia resolved Nausea resolved Pulmonary emboli acute [facility] Work Phone: Evaluation note* Diagnosis Onset Date Resolution Status Diarrhea acute Acute leg pain resolved Diabetes mellitus with hyperglycemia resolved Nausea resolved Chest pressure acute Pulmonary emboli acute [facility] Work Phone: Evaluation note* Diagnosis Onset Date Resolution Status Diarrhea acute Acute leg pain resolved Diabetes mellitus with hyperglycemia resolved Nausea resolved Chest pressure acute [facility] Work Phone: Evaluation note* Diagnosis Encounter for screening mammogram for breast cancer documented in this encounter [facility] note* Diagnosis Pre-operative examination- Primary Preoperative examination, [...] for breast cancer documented in this encounter [facility] Health SystemHistory and physical note Author John Shaw [facility] November 19, 2023 11:02am Note Date/Time November 19, 2023 1 0:38am [facility] Medical Records Department [address] [place] [address] H&P Exam - Hospitalist 11/19/23 1037 MR#: [id number] Acct: [id number] Name: TERRANCE BRAR Rep #:[id number] : 1965 58 From: John Shaw MD PCP: Dr. Jarred Lopez MD Status :ADM HOMER [facility] [id number] HPI - General General Date of Admission: [...] admittedto regular nursing floor for further management [facility] Medical History Carpal tunnel syndrome Chronic back [...] pen needle,diabetic, disp unit 29 gauge x 1/2, remover and disposal unit #100 ea 06/23/21 [...] for therapy for chronic back pain housing: detention Smoking Status: Former smoker Tobacco: How many [...] % (Auto) 59.6, Lymph % (Auto) 35.7, [place]% (Auto) 3.3, Eos % (Auto) 0.4, Baso [...] Sl. Cloudy, Urine pH 6.0, Ur Specific [place] 1.015, Urine Protein 30 H, Urine Glucose [...] Requested for PT OT eval and social services manager to assist with discharge planning 12. DVT [...] documentation, 75Minutes Charges/Coding Visit Charges Inpatient E&M: 60952 Init Hosp L3 Procedures Hospitalists Procedures: 55773 Advncd Care Plan addl 30 Min 11/19/23 1102 <Electronically signed by John Shaw MD> Cosigner Signature (if applicable): CC: Dr. Jarred Lopez MD; Dr. John Shaw MD~ Signed [facility] Work Phone: Hospital Discharge instructions Additional Instructions Your MRI today showed some mild disc disease of L3 and L4. The thoracic spine was fine. There is no compression of your spinal cord. Nothing needs to be done acutely. Motrin and Tylenol for pain. Follow-up with your primary care physician.[facility] Work Phone: Hospital Discharge instructionsWMercy [facility] Work Phone: [phone] Discharge instructionsWMercy Health [facility] Work Phone: [phone] Discharge instructionsWMercy Health [facility] Work Phone: [phone] Discharge instructionsWMercy Health [facility] Work Phone: [phone] Discharge instructionsWMercy [facility] Work Phone: [phone] Discharge instructionsWMercy [facility] Work Phone: [phone] Discharge instructionsWMercy Health [facility] Work Phone: [phone] Discharge instructionsWMercy Health [facility] Work Phone: Hospital Discharge instructionsWMercy [facility] Work Phone: Hospital Discharge instructionsWMercy Health [facility] Work Phone: Hospital Discharge instructionsWMercy Health [facility] Work Phone: Hospital Discharge instructions Additional Instructions Your work-up today does not show a kidney stone bowel obstruction or acute appendicitis. It does demonstrate urinary tract infection but at this time it is not causing kidney damage or moving in your bloodstream. Therefore take the antibiotic as directed to help resolve your infection and return to the ER should you have any further concerns.[facility] Work Phone: Hospital Discharge instructions Additional Instructions Discard the [facility] prescription. Patient has used Percocet before in the past and should be fine with this for pain. Follow-up with your doctor if not improving.[facility] Work Phone: Hospital Discharge instructions Additional Instructions Increase fiber in your diet. Take an [id number] stool softener.[facility] Work Phone: Hospital Discharge instructions Additional Instructions Watch her blood sugars very closely. Take your medications as prescribed. Recheck your blood sugar prior to going to bed tonight Call and follow-up your primary care physician this coming week.[facility] Work Phone: Reason for referral (narrative)* Diagnostic Procedure Only (Routine) - Pending Review Specialty Diagnoses / Procedures Referred By Mamta redmond Referred To Contact BR IMAGING Diagnoses Encounter for screening mammogram for breast cancer Procedures OLIVER SCREENING SCREENING MAMMOGRAPHY BI 2-VIEW BREAST INC CAD Dwayne Lopez MD [address] [place] [address] [facility] [address] [facility] [place] [address] Referral ID Status Reason Start Date Expiration Date Visits Requested Visits Authorized [id number] Pending Review Auto-Generat ed Referral 03/08/2024 04/07/2025 1 1 [facility] for referral (narrative)No reason for referral information availableWMer[facility] Work Phone: Summary Purpose Family History No [...] No January 13, 2022 2:31pm Power of Regional Extension Service Specialist No January 13 2:31pm Advance Directive Response Recorded Date/ Time Advance Directives No April 21 2:21pm Living Will No February 24, 2022 1: 16pm Power of Regional Extension Service Specialist No February 24, 2022 1:16pm Advance Directive Response Recorded Date/ Time Advance Directives No April 21 2:21pm Living Will No March 20, 2022 5 :54pm Power of Regional Extension Service Specialist No March 20, 2022 5:54pm Documents on File Type Date Recorded Patient Hatch Tender Expl anation Advance Directive(s) 10/10/2020 10:19 AM [...] April 24, 2022 5 :45pm Power of Regional Extension Service Specialist No April 24, 2022 5:45pm Advance Directive Response Recorded Date/ Time Advance Directives No May 13 3:12pm Living Will No May 20, 2022 10:19pm Power of Regional Extension Service Specialist No May 20 10:19pm Advance Directive Response Recorded Date/ Time Advance Directives No May 13 3:12pm Living Will No May 21, 2022 4:04am Power of Regional Extension Service Specialist No May 21 4:04am Advance Directive Response Recorded Date/ Time Advance Directives No May 13 3:12pm Living Will No August 24 3:23am Power of Regional Extension Service Specialist No August 24, 2022 3:23am Advance Directive Response Recorded Date/ Time Advance Directives No May 13 2:12pm Living Will No August 24 2:23am Power of Regional Extension Service Specialist No August 24, 2022 2:23am Advance Directive Response Recorded Date/ Time Advance Directives No May 13 2:12pm Living Will No October 09, 2 022 1:31am Power of Regional Extension Service Specialist No October 09, 2022 1:31am Advance Directive Response Recorded Date/ Time Advance Directives No May 13 2:12pm Living Will No November 05 1:46am Power of Regional Extension Service Specialist No November 05, 2022 1:46am Advance Directive Response Recorded Date/ Time Advance Directives No May 13 3:12pm Living Will No January 06, 2023 5:42pm Power of Regional Extension Service Specialist No January 06 5:42pm Advance Directive Response Recorded Date/ Time Advance Directives No May 13 3:12pm Living Will No January 07, 2023 3:43pm Power of Regional Extension Service Specialist No January 07 3:43pm Advance Directive Response Recorded Date/ Time Advance Directives No May 13 3:12pm Living Will No January 29, 2023 10:04pm Power of Regional Extension Service Specialist No January 29 10:04pm Advance Directive Response Recorded Date/ Time Advance Directives No May 13 3:12pm Living Will No March 28, 2023 9 :08am Power of Regional Extension Service Specialist No March 28, 2023 9:08am Advance Directive Response Recorded Date/ Time Advance Directives No May 13 3:12pm Living Will No June 04 4:57pm Power of Regional Extension Service Specialist No June 04, 2 023 4:57pm Advance Directive Response Recorded Date/ Time Advance Directives No May 13 3:12pm Living Will No June 06 3 6:12pm Power of Regional Extension Service Specialist No June 06 023 6:12pm Advance Directive Response Recorded Date/ Time Advance Directives No May 13 3:12pm Living Will No June 10 2:58pm Power of Regional Extension Service Specialist No June 10 023 2:58pm Advance Directive Response Recorded Date/ Time Advance Directives No May 13 2:12pm Living Will No November 19 8:42am Power of Regional Extension Service Specialist No November 19, 2023 8:42am Advance Directive Response Recorded Date/ Time Advance Directives No May 13 2:12pm Living Will No January 01, 2024 6:36pm Power of Regional Extension Service Specialist No December 31 6:36pm Advance Directive Response Recorded Date/ Time Advance Directives No May 13 3:12pm Living Will No January 02, 2024 12:44am Power of Regional Extension Service Specialist No January 01 12:44am Advance Directive Response Recorded Date/ Time Advance Directives No May 13 3:12pm Living Will No January 20, 2024 1:09am Power of Regional Extension Service Specialist No January 19 1:09am Advance Directive Response Recorded Date/ Time Living Will No October 24 024 12:12pm Do you have a Healthcare Power of Regional Extension Service Specialist? No October 24, 2024 12:12pm Living Will No January 22, 2025 10:46am Do you have a Healthcare Power of Regional Extension Service Specialist? No January 22, 2025 10:46am Advance Directives No May 13 3:12pm Advance Directive Response Recorded Date/ Time Advance Directives No March 16 7:49am Living Will No January 22, 2025 10:46am Do you have a Healthcare Power of Regional Extension Service Specialist? No January 22, 2025 10:46am Advance Directive Response Recorded Date/ Time Advance Directives No March 16 7:49am Chief Complaint and Reason for Visit Chief [...] PAIN CUSTODIAL LABWORK Amb Documentation s/p hosp/ UNDERCOATER consult in ER Reason for Visit Hyperlipidemia Chest pain Hypothyroidism Nonspecific chest pain Atherosclerotic heart disease of [place] coronary artery without angina pectoris Chest pressure [...] LABWORK CUSTODIAL LABWORK Amb Documentation s/p hosp/ UNDERCOATER consult in ER CUSTODIAL LABWORK DYSPNEA *OSCAR* Reason for Visit Hyperlipidemia Chest pain Hypothyroidism Nonspecific chest pain Atherosclerotic heart disease of [place] coronary artery without angina pectoris Chest pressure [...] LABWORK CUSTODIAL LABWORK Amb Documentation s/p hosp/ UNDERCOATER consult in ER CUSTODIAL LABWORK CUSTODIAL LAB WORK DYSPNEA *OSCAR* CUSTODIAL LAB WORK Reason for Visit Hyperlipidemia Chest pain Hypothyroidism Nonspecific chest pain Atherosclerotic heart disease of [place] coronary artery without angina pectoris Chest pressure Dizziness Dyspnea Essential hypertension Hyperlipidemia Chief Complaint LABWORK CUSTODIAL LABWORK CP, DM, HTN CP, DM, HTN CP, DM, HTN CP, DM, HTN LAB WORK NEW SYMPTOMS/CONCERNS CHEST PAIN CHEST PAIN ER FOLLOW UP CUSTODIAL LABWORK LAB WORK CHEST PAIN CHEST PAIN CUSTODIAL LABWORK CUSTODIAL LABWORK Amb Documentation s/p hosp/ UNDERCOATER consult in ER CUSTODIAL LABWORK CUSTODIAL LAB WORK DYSPNEA *OSCAR* LABWORK CUSTODIAL LAB WORK CUSTODIAL LABWORK Reason for Visit Hyperlipidemia Chest pain Hypothyroidism Nonspecific chest pain Atherosclerotic heart disease of [place] coronary artery without angina pectoris Chest pressure Dizziness Dyspnea Essential hypertension Hyperlipidemia Chief Complaint CP, DM, HTN CP, DM, HTN CP, DM, HTN CP, DM, HTN LAB WORK NEW SYMPTOMS/CONCERNS CHEST PAIN CHEST PAIN ER FOLLOW UP CUSTODIAL LABWORK LAB WORK CHEST PAIN CHEST PAIN CUSTODIAL LABWORK CUSTODIAL LABWORK Amb Documentation s/p hosp/ UNDERCOATER consult in ER CUSTODIAL LABWORK CUSTODIAL LAB WORK DYSPNEA *OSCAR* LABWORK CUSTODIAL LAB WORK CUSTODIAL LABWORK CUSTODIAL LABWORK Reason for Visit Hyperlipidemia Chest pain Hypothyroidism Nonspecific chest pain Atherosclerotic heart disease of [place] coronary artery without angina pectoris Chest pressure Dizziness Dyspnea Essential hypertension Hyperlipidemia Chief Complaint CHEST PAIN CHEST PAIN ER FOLLOW UP CUSTODIAL LABWORK LAB WORK CHEST PAIN CHEST PAIN CUSTODIAL LABWORK CUSTODIAL LABWORK Amb Documentation s/p hosp/ UNDERCOATER consult in ER CUSTODIAL LABWORK CUSTODIAL LAB WORK DYSPNEA *OSCAR* LABWORK CUSTODIAL LAB WORK LABWORK CUSTODIAL LABWORK CUSTODIAL LABWORK CUSTODIAL LAB WORK CP Reason for Visit Hypothyroidism Nonspecific chest pain Atherosclerotic heart disease of [place] coronary artery without angina pectoris Chest pressure Dizziness Dyspnea Essential hypertension Hyperlipidemia Chief Complaint CUSTODIAL LABWORK CUSTODIAL LABWORK Amb Documentation s/p hosp/ UNDERCOATER consult in ER CUSTODIAL LABWORK CUSTODIAL LAB WORK DYSPNEA *OSCAR* LABWORK CUSTODIAL LAB WORK LABWORK CUSTODIAL LABWORK CUSTODIAL LABWORK CUSTODIAL LAB WORK CP ER VISIT RETURN CUSTODIAL LABWORK 3 M FU Reason for Visit Atherosclerotic hear t disease of [place] coronary artery without angina pectoris Chest pressure Dizziness Dyspnea Essential hypertension Hyperlipidemia Atherosclerotic heart disease of [place] coronary artery without angina pectoris Bilateral lower extremity edema Essential hypertension Hyperlipidemia Chief Complaint s/p hosp/ UNDERCOATER consul t in ER CUSTODIAL LABWORK CUSTODIAL LAB WORK DYSPNEA *OSCAR* LABWORK CUSTODIAL LAB WORK LABWORK CUSTODIAL LABWORK CUSTODIAL LABWORK CUSTODIAL LAB WORK CP ER VISIT RETURN CUSTODIAL LABWORK 3 M FU CUSTODIAL LAB WORK abd pain Reason for Visit Atherosclerotic hear t disease of [place] coronary artery without angina pectoris Chest pressure Dizziness Dyspnea Essential hypertension Hyperlipidemia Atherosclerotic heart disease of [place] coronary artery without angina pectoris Bilateral lower [...] for Visit Atherosclerotic hear t disease of [place] coronary artery without angina pectoris Bilateral lower extremity edema Essential hypertension Hyperlipidemia Chief Complaint LABWORK CUSTODIAL LABWORK CUSTODIAL LABWORK CUSTODIAL LAB WORK CP ER VISIT RETURN CUSTODIAL LABWORK MONTHLY EXAM 3 M FU CUSTODIAL LABWORK CUSTODIAL LAB WORK CUSTODIAL LAB WORK abd pain MONTHLY VISIT CUSTODIAL LAB WORK NEW CONCERN NEW PROBLEM/CONCERN chest pain Reason for Visit Atherosclerotic hear t disease of [place] coronary artery without angina pectoris Bilateral lower [...] for Visit Atherosclerotic hear t disease of [place] coronary artery without angina pectoris Bilateral lower [...] for Visit Atherosclerotic hear t disease of [place] coronary artery without angina pectoris Bilateral lower [...] for Visit Atherosclerotic hear t disease of [place] coronary artery without angina pectoris Bilateral lower [...] for Visit Atherosclerotic hear t disease of [place] coronary artery without angina pectoris Bilateral lower [...] for Visit Atherosclerotic hear t disease of [place] coronary artery without angina pectoris Bilateral lower [...] for Visit Atherosclerotic hear t disease of [place] coronary artery without angina pectoris Bilateral lower [...] for Visit Atherosclerotic hear t disease of [place] coronary artery without angina pectoris Bilateral lower extremity edema Essential hypertension Hyperlipidemia Palpitations Chief Complaint 5 MO F/U CUSTODIAL LAB WORK CUSTODIAL LABWORK MONTHLY EXAM CUSTODIAL LABWORK NEW CONCERN constipation ABD PAIN Reason for Visit Atherosclerotic hear t disease of [place] coronary artery without angina pectoris Bilateral lower extremity edema Essential hypertension Hyperlipidemia Palpitations Chief Complaint 5 MO F/U CUSTODIAL LAB WORK CUSTODIAL LABWORK MONTHLY EXAM CUSTODIAL LABWORK NEW CONCERN constipation ABD PAIN General illness Reason for Visit Atherosclerotic hear t disease of [place] coronary artery without angina pectoris Bilateral lower extremity edema Essential hypertension Hyperlipidemia Palpitations Chief Complaint 5 MO F/U CUSTODIAL LAB WORK CUSTODIAL LABWORK MONTHLY EXAM CUSTODIAL LABWORK NEW CONCERN constipation ABD PAIN General illness constipation Reason for Visit Atherosclerotic hear t disease of [place] coronary artery without angina pectoris Bilateral lower [...] hyperglycemia hyperglycemia hyperglycemia hyperglycemia hyperglycemia ADMISSION EXAM BRUSH CLEARING LABORER LABWORK ADMISSION EXAM MD LABWORK LABWORK LABWORK CUSTODIAL LAB WORK LABWORK BL PE, CHEST PAIN BL PE, CHEST PAIN BL PE, CHEST PAIN BL PE, CHEST PAIN BL PE, CHEST PAIN Reason for Visit Diarrhea Acute leg pain Diabetes mellitus with hyperglycemia Nausea Chest pressure Chief Complaint hyperglycemia hyperglycemia hyperglycemia hyperglycemia hyperglycemia hyperglycemia hyperglycemia ADMISSION EXAM BRUSH CLEARING LABORER LABWORK ADMISSION EXAM MD LABWORK LABWORK LABWORK CUSTODIAL LAB WORK LABWORK BL PE, CHEST PAIN BL PE, CHEST PAIN BL PE, CHEST PAIN BL PE, CHEST PAIN BL PE, CHEST PAIN chest pain Reason for Visit Diarrhea Acute leg pain Diabetes mellitus with hyperglycemia Nausea Chest pressure Chief Complaint hyperglycemia hyperglycemia hyperglycemia hyperglycemia hyperglycemia hyperglycemia hyperglycemia ADMISSION EXAM BRUSH CLEARING LABORER LABWORK ADMISSION EXAM MD LABWORK LABWORK LABWORK [...] Chest pain January 30, 2025 1:52 pm CUSTODIAL LAB WORK March 12, 2025 4:0 0am Reason for Visit Admit Date Atherosclerotic heart diseas e of sioux coronary artery without angina pectoris January 30, 2025 1:52pm Essential hypertension January 30, 2025 1 :52pm Hyperlipidemia January 30, 2025 1:52 pm Chest pain January 30, 2025 1:52 pm Chief Complaint Admit Date CP January 22, 2025 10: 39am ACUTE CARE VISIT January 22, 2025 4:0 1pm MONTHLY EXAM January 23, 2025 5:48 pm Chest pain January 30, 2025 1:52 pm CUSTODIAL LAB WORK March 05, 2025 5:0 0am CUSTODIAL LAB WORK March 12, 2025 4:0 0am NEW CONCERN March 13, 2025 5:30p m CUSTODIAL LAB WORK March 29, 2025 5:0 0am CUSTODIAL LAB WORK April 06, 2025 5: 00am CUSTODIAL LAB WORK April 12, 2025 2: 50pm Chief Complaint Admit Date CP January 22, 2025 10: 39am ACUTE CARE VISIT January 22, 2025 4:0 1pm MONTHLY EXAM January 23, 2025 5:48 pm Chest pain January 30, 2025 1:52 pm CUSTODIAL LAB WORK March 05, 2025 5:0 0am CUSTODIAL LAB WORK March 12, 2025 4:0 0am NEW CONCERN March 13, 2025 5:30p m MONTHLY EXAM March 27, 2025 6:00p m CUSTODIAL LAB WORK March 29, 2025 5:0 0am CUSTODIAL LAB WORK April 06, 2025 5: 00am CUSTODIAL LAB WORK April 12, 2025 2: 50pm LABWORK April 25, 2025 5:00a m Chief Complaint Admit Date CP January 22, 2025 10: 39am ACUTE CARE VISIT January 22, 2025 4:0 1pm MONTHLY EXAM January 23, 2025 5:48 pm Chest pain January 30, 2025 1:52 pm CUSTODIAL LAB WORK March 05, 2025 5:0 0am CUSTODIAL LAB WORK March 12, 2025 4:0 0am NEW CONCERN March 13, 2025 5:30p m MONTHLY EXAM March 27, 2025 6:00p m CUSTODIAL LAB WORK March 29, 2025 5:0 0am CUSTODIAL LAB WORK April 06, 2025 5: 00am NEW CONCERN April 12, 2025 10:1 5am CUSTODIAL LAB WORK April 12, 2025 2: 50pm LABWORK April 25, 2025 5:00a m Chief Complaint Admit Date CP January 22, 2025 10: 39am ACUTE CARE VISIT January 22, 2025 4:0 1pm MONTHLY EXAM January 23, 2025 5:48 pm Chest pain January 30, 2025 1:52 pm CUSTODIAL LAB WORK March 05, 2025 5:0 0am CUSTODIAL LAB WORK March 12, 2025 4:0 0am NEW CONCERN March 13, 2025 5:30p m MONTHLY EXAM March 27, 2025 6:00p m CUSTODIAL LAB WORK March 29, 2025 5:0 0am CUSTODIAL LAB WORK April 06, 2025 5: 00am NEW CONCERN April 12, 2025 10:1 5am CUSTODIAL LAB WORK April 12, 2025 2: 50pm FU EXAM April 20, 2025 3:15 pm LABWORK April 25, 2025 5:00a m Chief Complaint Admit Date MONTHLY EXAM January 23, 2025 5:48 pm Chest pain January 30, 2025 1:52 pm MONTHLY VISIT February 26, 2025 4:06pm CUSTODIAL LAB WORK March 05, 2025 5:0 0am CUSTODIAL LAB WORK March 12, 2025 4:0 0am NEW CONCERN March 13, 2025 5:30p m MONTHLY EXAM March 27, 2025 6:00p m CUSTODIAL LAB WORK March 29, 2025 5:0 0am CUSTODIAL LAB WORK April 06, 2025 5: 00am NEW CONCERN April 12, 2025 10:1 5am CUSTODIAL LAB WORK April 12, 2025 2: 50pm FU EXAM April 20, 2025 3:15 pm LABWORK April 25, 2025 5:00a m LABWORK May 07, 2025 5:00 am Chief Complaint Admit Date MONTHLY EXAM January 23, 2025 5:48 pm Chest pain January 30, 2025 1:52 pm MONTHLY VISIT February 26, 2025 4:06pm CUSTODIAL LAB WORK March 05, 2025 5:0 0am NEW CONCERN March 05, 2025 3:46p m CUSTODIAL LAB WORK March 12, 2025 4:0 0am NEW CONCERN March 13, 2025 5:30p m MONTHLY EXAM March 27, 2025 6:00p m CUSTODIAL LAB WORK March 29, 2025 5:0 0am CUSTODIAL LAB WORK April 06, 2025 5: 00am NEW CONCERN April 12, 2025 10:1 5am CUSTODIAL LAB WORK April 12, 2025 2: 50pm FU EXAM April 20, 2025 3:15 pm LABWORK April 25, 2025 5:00a m LABWORK May 07, 2025 5:00 am Chief Complaint Admit Date MONTHLY EXAM January 23, 2025 5:48 pm Chest pain January 30, 2025 1:52 pm MONTHLY VISIT February 26, 2025 4:06pm CUSTODIAL LAB WORK March 05, 2025 5:0 0am NEW CONCERN March 05, 2025 3:46p m NEW CONCERN March 08, 2025 5:24p m CUSTODIAL LAB WORK March 12, 2025 4:0 0am NEW CONCERN March 13, 2025 5:30p m MONTHLY EXAM March 27, 2025 6:00p m CUSTODIAL LAB WORK March 29, 2025 5:0 0am CUSTODIAL LAB WORK April 06, 2025 5: 00am NEW CONCERN April 12, 2025 10:1 5am CUSTODIAL LAB WORK April 12, 2025 2: 50pm FU EXAM April 20, 2025 3:15 pm LABWORK April 25, 2025 5:00a m LABWORK May 07, 2025 5:00 am Reason for Referral Specialty Diagnoses / Procedures Referred By Contac t Referred To Contact Podiatry Diagnoses Diabetic polyneuropathy associated with type 2 diabetes mellitus (HCC) Procedures CONSULT TO PODIATRY OFFICE/OUTPATIENT [facility] 60-74 MINUTES Dwayne Lopez MD [address] [place] [id number] Referral ID Status Reason Start Date Expiration Date Visits Requested Visits Authorized [id number] Pending Review PCP Requested Referral 04/07/2023 04/06/2024 1 1 Specialty Diagnoses / Procedures Referred By Contac t Referred To Contact General Surgery Diagnoses Globus sensation Screening for colon cancer Procedures CONSULT TO GENERAL SURGERY OFFICE/OUTPATIENT [facility] 60-74 MINUTES Dwayne Lopez MD [address] [place] [id number] Referral ID Status Reason Start Date Expiration Date Visits Requested Visits Authorized [id number] Pending Review PCP Requested Referral 04/07/2023 04/06/2024 1 1 Specialty Diagnoses / Procedures Referred By Contac t Referred To Contact Ophthalmology Diagnoses Diabetes mellitus type 2 with neurological manifestations (HCC) Change in vision Procedures CONSULT TO OPHTHALMOLOGY OFFICE/OUTPATIENT [facility] 60-74 MINUTES Dwayne Lopez MD [address] [place] [id number] Referral ID Status Reason Start Date Expiration Date Visits Requested Visits Authorized [id number] Pending Review PCP Requested Referral 04/07/2023 04/06/2024 1 1 Additional Source Comments INFORMATION SOURCE (unrecogn ized section and content) DATE CREATED AUTHOR 04/13/2018 [facility] DATE CREATED AUTHOR AUTHOR'S ORGANIZ ATION 04/14/2018 [facility] DATE CREATED AUTHOR AUTHOR'S ORGANIZ ATION 10/05/2018 [facility] DATE CREATED AUTHOR AUTHOR'S ORGANIZ ATION 10/19/2019 [facility] DATE CREATED AUTHOR AUTHOR'S ORGANIZ ATION 09/28/2020 [facility] ([place]) DATE CREATED AUTHOR AUTHOR'S ORGANIZ ATION 04/15/2025 [facility] DATE CREATED AUTHOR AUTHOR'S ORGANIZ ATION 05/25/2025 [facility] Goals (unrecognized section and content) Goals may [...] any alcohol or drug abuse patient.[facility] the event this information is protected by the Federal Confidentiality of Alcohol and Drug Abuse Patient Records regulations: The Federal rules restrict any use of the information to criminally investigate or prosecute any alcohol or drug abuse patient.[facility] System[facility] the event this information is protected by the Federal Confidentiality of Alcohol and Drug Abuse Patient Records regulations: The Federal rules restrict any use of the information to criminally investigate or prosecute any alcohol or drug abuse patient.[facility] System[facility] the event this information is protected by the Federal Confidentiality of Alcohol and Drug Abuse Patient Records regulations: The Federal rules restrict any use of the information to criminally investigate or prosecute any alcohol or drug abuse patient.[facility] System[facility] the event this information is protected by the Federal Confidentiality of Alcohol and Drug Abuse Patient Records regulations: The Federal rules restrict any use of the information to criminally investigate or prosecute any alcohol or drug abuse patient.[facility] System[facility] the event this information is protected by the Federal Confidentiality of Alcohol and Drug Abuse Patient Records regulations: The Federal rules restrict any use of the information to criminally investigate or prosecute any alcohol or drug abuse patient.[facility] System[facility] the event this information is protected by the Federal Confidentiality of Alcohol and Drug Abuse Patient Records regulations: The Federal rules restrict any use of the information to criminally investigate or prosecute any alcohol or drug abuse patient.[facility] System[facility] the event this information is protected by the Federal Confidentiality of Alcohol and Drug Abuse Patient Records regulations: The Federal rules restrict any use of the information to criminally investigate or prosecute any alcohol or drug abuse patient.[facility] the event this information is protected by the Federal Confidentiality of Alcohol and Drug Abuse Patient Records regulations: The Federal rules restrict any use of the information to criminally investigate or prosecute any alcohol or drug abuse patient.[facility] System[facility] the event this information is protected by the Federal Confidentiality of Alcohol and Drug Abuse Patient Records regulations: The Federal rules restrict any use of the information to criminally investigate or prosecute any alcohol or drug abuse patient.[facility] System[facility] the event this information is protected by the Federal Confidentiality of Alcohol and Drug Abuse Patient Records regulations: The Federal rules restrict any use of the information to criminally investigate or prosecute any alcohol or drug abuse patient.[facility] System[facility] the event this information is protected by the Federal Confidentiality of Alcohol and Drug Abuse Patient Records regulations: The Federal rules restrict any use of the information to criminally investigate or prosecute any alcohol or drug abuse patient.[facility] System[facility] the event this information is protected by the Federal Confidentiality of Alcohol and Drug Abuse Patient Records regulations: The Federal rules restrict any use of the information to criminally investigate or prosecute any alcohol or drug abuse patient.[facility] System[facility] the event this information is protected by the Federal Confidentiality of Alcohol and Drug Abuse Patient Records regulations: The Federal rules restrict any use of the information to criminally investigate or prosecute any alcohol or drug abuse patient.[facility] System[facility] the event this information is protected by the Federal Confidentiality of Alcohol and Drug Abuse Patient Records regulations: The Federal rules restrict any use of the information to criminally investigate or prosecute any alcohol or drug abuse patient.[facility] SystemIn the event this information is protected by the Federal Confidentiality of Alcohol and Drug Abuse Patient Records regulations: The Federal rules restrict any use of the information to criminally investigate or prosecute any alcohol or drug abuse patient.[facility] System[facility] the event this information is protected by the Federal Confidentiality of Alcohol and Drug Abuse Patient Records regulations: The Federal rules restrict any use of the information to criminally investigate or prosecute any alcohol or drug abuse patient.[facility] SystemIn the event this information is protected by the Federal Confidentiality of Alcohol and Drug Abuse Patient Records regulations: The Federal rules restrict any use of the information to criminally investigate or prosecute any alcohol or drug abuse patient.[facility] SystemIn the event this information is protected by the Federal Confidentiality of Alcohol and Drug Abuse Patient Records regulations: The Federal rules restrict any use of the information to criminally investigate or prosecute any alcohol or drug abuse patient.[facility] SystemIn the event this information is protected by the Federal Confidentiality of Alcohol and Drug Abuse Patient Records regulations: The Federal rules restrict any use of the information to criminally investigate or prosecute any alcohol or drug abuse patient.[facility] SystemIn the event this information is protected by the Federal Confidentiality of Alcohol and Drug Abuse Patient Records regulations: The Federal rules restrict any use of the information to criminally investigate or prosecute any alcohol or drug abuse patient.[facility] SystemIn the event this information is protected by the Federal Confidentiality of Alcohol and Drug Abuse Patient Records regulations: The Federal rules restrict any use of the information to criminally investigate or prosecute any alcohol or drug abuse patient.[facility] SystemIn the event this information is protected by the Federal Confidentiality of Alcohol and Drug Abuse Patient Records regulations: The Federal rules restrict any use of the information to criminally investigate or prosecute any alcohol or drug abuse patient.[facility] SystemIn the event this information is protected by the Federal Confidentiality of Alcohol and Drug Abuse Patient Records regulations: The Federal rules restrict any use of the information to criminally investigate or prosecute any alcohol or drug abuse patient.[facility] SystemIn the event this information is protected by the Federal Confidentiality of Alcohol and Drug Abuse Patient Records regulations: The Federal rules restrict any use of the information to criminally investigate or prosecute any alcohol or drug abuse patient.[facility] SystemIn the event this information is protected by the Federal Confidentiality of Alcohol and Drug Abuse Patient Records regulations: The Federal rules restrict any use of the information to criminally investigate or prosecute any alcohol or drug abuse patient.[facility] SystemIn the event this information is protected by the Federal Confidentiality of Alcohol and Drug Abuse Patient Records regulations: The Federal rules restrict any use of the information to criminally investigate or prosecute any alcohol or drug abuse patient.[facility] SystemIn the event this information is protected by the Federal Confidentiality of Alcohol and Drug Abuse Patient Records regulations: The Federal rules restrict any use of the information to criminally investigate or prosecute any alcohol or drug abuse patient.[facility] SystemIn the event this information is protected by the Federal Confidentiality of Alcohol and Drug Abuse Patient Records regulations: The Federal rules restrict any use of the information to criminally investigate or prosecute any alcohol or drug abuse patient.[facility] SystemIn the event this information is protected by the Federal Confidentiality of Alcohol and Drug Abuse Patient Records regulations: The Federal rules restrict any use of the information to criminally investigate or prosecute any alcohol or drug abuse patient.[facility] SystemIn the event this information is protected by the Federal Confidentiality of Alcohol and Drug Abuse Patient Records regulations: The Federal rules restrict any use of the information to criminally investigate or prosecute any alcohol or drug abuse patient.[facility] SystemIn the event this information is protected by the Federal Confidentiality of Alcohol and Drug Abuse Patient Records regulations: The Federal rules restrict any use of the information to criminally investigate or prosecute any alcohol or drug abuse patient.[facility] SystemIn the event this information is protected by the Federal Confidentiality of Alcohol and Drug Abuse Patient Records regulations: The Federal rules restrict any use of the information to criminally investigate or prosecute any alcohol or drug abuse patient.[facility] Reason for Visit (unrecogniz ed section and [...] Date Comments Population Health Navigation Outreach 08/18/2023 [place] care gaps Reason Onset Date Comments Refill [...] Date Comments Population Health Navigation Outreach 02/17/2024 [place] [facility] [place] 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 - AWV, Care gaps, HCC gap closure - [place] [facility] Reason Onset Date Comments Refill Request 03/21/2024 Reason Onset Date Comments [facility] TIARA RN 04/06/2024 Reason Onset Date Comments Population Health Navigation Outreach 09/08/2024 [place] No PCP Reason Onset Date Comments Population Health Navigation Outreach 11/29/2024 [employer] workbench ronnie Reason Onset Date Comments Allied Health Visit 01/05/2025 Medication A dherence Outreach Reason Onset Date Comments Population Health Navigation Outreach 03/20/2025 [employer] Workbench [place] Reason Onset Date Comments Diabetes 03/21/2025 Care Teams (unrecognized sec tion and content) Team Status: Active Member Role Status Dates Dr. Carlee Valencia III, MD Family Provider Active Dr. Lizet Linares MD Primary Care Provider Active Team Status: Inactive Member Role Status Dates Dr. Ganesh Garcia MD Primary Care Provider, Referrin g Provider Active Miriam Cameron NP, BR[employer] CLEARING [employer]ORER-C Attending Provider Active Team Status: Inactive Member Role Status Dates Dr. Ganesh Garcia MD Primary Care Provider Active Ana Maria Geller NP, BR[employer] CLEARING [employer]ORER-C Attending Provider Active Team Status: Inactive Member Role Status Dates Dr. Lizet Linares MD Primary Care Provider, Atten ding Provider Active Team Status: Inactive Member Role Status Dates Dr. Lizet Linares MD Primary Care Provider Active Ana Maria Geller NP, BR[employer] CLEARING LABORER-C Attending Provider Active Team Status: Inactive Member [...] Inactive Member Role Status Dates Dr. Lizet Linraes MD Primary Care Provider Active Lizet Linares [...] Care Provider Active Ana Maria Geller NP [employer] CLEARING [employer]ORER-C Attending Provider Active Team Status: Inactive Member [...] Primary Care Provider Active Ana Maria Geller BRUSH CLEARING LABORER, BR[employer] CLEARING [employer]ORER-C Attending Provider, Referring Provider Active Team Status: Inactive Member Role Status Dates Dr. Lizet Linares MD Primary Care Provider Active Ana Maria Geller BRUSH CLEARING LABORER, BR[employer] CLEARING LABORER-C Attending Provider, Referring Provider Active Team Status: Inactive Member Role Status Dates Dr. Lizet Linares MD Primary Care Provider Active Dr. Marck Dunn DO Emergency Provider Active Team Status: Inactive Member Role Status Dates Dr. Lizet Linares MD Primary Care Provider Active Ganesh NOLASCO MD Attending Provider Active Bonding [employer] Composite Fabricator Relationship Specialty Start Date End Date Dwayne Lopez MD [address] [place] [address] PCP - General Family Medicine 03/24/23 Team Status: Inactive Member Role Status Dates Dr. Ganesh Garcia MD Referring Provider Active Miriam Cameron BRUSH CLEARING LABORER, BR[employer] CLEARING [employer]ORER-C Attending Provider Active Dr. Lizet Linares MD [...] Active Ellis Peterson MD Emergency Provider Active [employer] Composite Fabricator Relationship Specialty Start Date End Date Dwayne Lopez MD [address] [place], [place] [address] PCP - General Family Medicine 03/24/23 Bond[employer] And Composite Fabricator Relationship Specialty Start Date End Date Dwayne Lopez MD [address] [place] [address] PCP - General Family Medicine 03/24/23 Bonding And Composite Fabricator Relationship Specialty Start Date End Date Dwayne Lopez MD [address] [place] [address] PCP - General Family Medicine 03/24/23 Bonding And Composite Fabricator Relationship Specialty Start Date End Date Dwayne Lopez MD [address] [place] [address] PCP - General Family Medicine 03/24/23 Bonding And Composite Fabricator Relationship Specialty Start Date End Date Dwayne Lopez MD [address] [place] [address] PCP - General Family Medicine 03/24/23 Bonding And Composite Fabricator Relationship Specialty Start Date End Date Dwayne Lopez MD [address] [place] [address] PCP - General Family Medicine 03/24/23 Bonding And Composite Fabricator Relationship Specialty Start Date End Date Dwayne Lopez MD [address] [place] [address] PCP - General Family Medicine 03/24/23 Team [...] Dr. Raisa Mc MD Emergency Provider Active [employer] Composite Fabricator Relationship Specialty Start Date End Date Dwayne Lopez MD [address] [place] [address] PCP - General Family Medicine 03/24/23 Bonding And Composite Fabricator Relationship Specialty Start Date End Date Dwayne Lopez MD [address] [place] [address] PCP - General Family Medicine 03/24/23 Bonding And Composite Fabricator Relationship Specialty Start Date End Date Dwayne Lopez MD [address] [place] [address] PCP - General Family Medicine 03/24/23 Bonding And Composite Fabricator Relationship Specialty Start Date End Date Dwayne Lopez MD [address] [place] [address] PCP - General Family Medicine 03/24/23 Team [...] Zack Choi DO Emergency Provider Active Dr. oJhn Shaw MD Admit Provider, Other Provider A ctive Dr. Paresh Hernandez , Attending Provider, Other Pro vider Active Team Status: Inactive Member Role Status Dates Dr. Jarred Lopez MD Primary Care Provider Acti ve Dr. Zack Choi DO Emergency Provider Active Dr. John Shaw MD Admit Provider, Other Provider A ctive Dr. Paresh Hernandez , Attending Provider Active Team Status: Active Member [...] MD Attending Provider Active Dr. Chavez Alcala DO Referring Provider Active Team Status: Inactive Member Role Status Dates Dr. Jarred Lopez MD Primary Care Provider Acti ve Dr. Lizet Linares MD Attending Provider Active Team Status: Inactive Member Role Status Dates Dr. Jarred Lopez MD Primary Care Provider Acti ve Ana Maria Geller BRUSH CLEARING LABORER, BR[employer] CLEARING [employer]ORER-C Attending Provider Active Team Status: Inactive Member Role Status Dates Dr. Jarred Lopez MD Primary Care Provider Acti ve Ellis ePterson MD Emergency Provider Active [employer] Com[employer] Fabricator Relationship Specialty Start Date End Date Dwayne Lopez MD [address] [place] [address] PCP - General Family Medicine 03/24/23 Bond[employer] And Composite Fabricator Relationship Specialty Start Date End Date Dwayne Lopez MD [address] [place] [address] PCP - General Family Medicine 03/24/23 Team [...] NOLASCO MD Attending Provider, Referring Provider Active [employer] Composite Fabricator Relationship Specialty Start Date End Date Dwayne Lopez MD [address] [place] [address] PCP - General Family Medicine 03/24/23 Bonding And Composite Fabricator Relationship Specialty Start Date End Date Dwayne Lopez MD [address] [place] [address] PCP - General Family Medicine 09/08/24 Bonding And Composite Fabricator Relationship Specialty Start Date End Date Dwayne Lopez MD [address] [place], [place] [address] PCP - General Family Medicine 09/08/24 PodJesica park APRN.SIGNING AGENT [address] [place], [place] [address] Child Support Investigator Family Medicine 09/30/24 Bonding And Composite Fabricator Relationship Specialty Start Date End Date Dwayne Lopez MD [address] [place], [place] [address] PCP - General Family Medicine 09/08/24 PodselamarJesica APRN.SIGNING AGENT [address] [place], [place] [address] Child Support Investigator Family Medicine 09/30/24 Annabel Rivas APRN.SIGNING AGENT [address] [place], [place] [id number] [facility] Team Status: Active Member Role Status [...] End: October 27, 2024 Ana Maria Geller BRUSH CLEARING LABORER, BRUSH CLEARING LABORER-C Attending Provider Active Start: October 27, 2024 [...] January 22, 2025 Ana Maria Geller NP, BR[employer] CLEARING LABORER-C Attending Provider Active Start: January 22, 2025 End: January 22, 2025 Bonding And Composite Fabricator Relationship Specialty Start Date End Date Dwayne Lopez MD [address] [place] [address] PCP - General Family Medicine 09/08/24 Jesica Mina APRN.SIGNING AGENT [address] [place] [id number] Child Support Investigator Family Medicine 09/30/24 Annabel Rivas APRN.SIGNING AGENT [address] [place] [id number] [facility] 01/15/25 Bonding And Composite Fabricator Relationship Specialty Start Date End Date Dwayne Lopez MD [address] [place], [place] [address] PCP - General Family Medicine 09/08/24 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 APRN.SIGNING AGENT [address] [place] [address] [facility] 09/30/24 Annabel Rvias APRN.SIGNING AGENT [address] [place], [place] [id number] [facility] 01/15/25 Bonding And Composite Fabricator Relationship Specialty Start Date End Date Dwayne Lopez MD [address] [place] [address] PCP - General Family Medicine 09/08/24 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 APRN.SIGNING AGENT [address] [place] [address] [facility] 09/30/24 Team Status: Inactive Member Role Status [...] March 12, 2025 End: March 12, 2025 Bonding And Composite Fabricator Relationship Specialty Start Date End Date Dwayne Lopez MD [address] [place], [place] [id number] PCP - General Family Medicine 09/08/24 Jesica Mina APRN.SIGNING AGENT [address] [place], [place] [id number] [facility] 09/30/24 Annabel Rivas APRN.SIGNING AGENT [address] [place], [place] [id number] [facility] 04/05/25 Team Status: Active Member Role/Relationship Status Dates Dr. Lizet Linares MD Primary Care Provider Active Team Status: Inactive Member Role/Relationship Status Dates Dr. Lizet Linares MD Primary Care Provider Active Start: January 22, 2025 End: January 22, 2025 Dr. Zack Choi DO Attending Provider Active Start: January 22, 2025 End: January 22, 2025 Dr. Zack Choi DO Emergency Provider Active Start: January 22, 2025 End: January 22, 2025 Team Status: Inactive Member Role/Relationship Status Dates Dr. Lizet Linares MD Primary Care Provider Active Start: January 22, 2025 End: January 22, 2025 Ana Maria Geller NP BRUSH CLEARING LABORER-C Attending Provider Active Start: January 22, 2025 End: January 22, 2025 Team Status: Inactive Member Role/Relationship Status Dates Dr. Lizet Linares MD Primary Care Provider Active Start: January 23, 2025 End: January 23, 2025 Dr. Lizet Linares MD Attending Provider Active Start: January 23, 2025 End: January 23, 2025 Team Status: Inactive Member Role/Relationship Status Dates Dr. Lizet Linares MD Primary Care Provider Active Start: January 30, 2025 End: January 30, 2025 Dr. Lizet Linares MD Referring Provider Active Start: January 30, 2025 End: January 30, 2025 Shonda Chávez PA, PA Attending Provider Active Start: January 30, 2025 End: January 30, 2025 Team Status: Active Member Role/Relationship Status Dates Dr. Lizet Linares MD Primary Care Provider Active Start: March 05, 2025 FRANSISCO Marin Attending Provider Active Start: March 05, 2025 Team Status: Inactive Member Role/Relationship Status Dates Dr. Lizet Linares MD Primary Care Provider Active Start: March 12, 2025 End: March 12, 2025 Lizet NOLASCO MD Attending Provider Active Start: March 12, 2025 End: March 12, 2025 Lizet NOLASCO MD Referring Provider Active Start: March 12, 2025 End: March 12, 2025 Team Status: Inactive Member Role/Relationship Status Dates Dr. Lizet Linares MD Primary Care Provider Active Start: March 13, 2025 End: March 13, 2025 Ana Maria Geller NP BRUSH CLEARING LABORER-C Attending Provider Active Start: March 13, 2025 End: March 13, 2025 Team Status: Active Member Role/Relationship Status Dates Dr. Lizet Linares MD Primary Care Provider Active Start: March 29, 2025 Lizet NOLASCO MD Attending Provider Active Start: March 29, 2025 Team Status: Active Member Role/Relationship Status Dates Dr. Lizet Linares MD Primary Care Provider Active Start: April 06, 2025 Lizet NOLASCO MD Attending Provider Active Start: April 06, 2025 Team Status: Active Member Role/Relationship Status Dates Dr. Lizet Linares MD Primary Care Provider Active Start: April 12, 2025 Lizet NOLASCO MD Attending Provider Active Start: April 12, 2025 Team Status: Active Member Role/Relationship Status Dates Dr. Lizet Linares MD Primary Care Provider Active Start: April 25, 2025 Lizet NOLASCO MD Attending Provider Active Start: April 25, 2025 Team Status: Active Member Role/Relationship Status Dates Dr. Lizet Linares MD Primary Care Provider Active Start: May 07, 2025 Lizet NOLASCO MD Attending Provider Active Start: May 07, 2025 Team Status: Inactive Member Role/Relationship Status Dates Dr. Lizet Linares MD Primary Care Provider Active Start: March 27, 2025 End: March 27, 2025 Dr. Lizet Linares MD Attending Provider Active Start: March 27, 2025 End: March 27, 2025 Team Status: Active Member Role/Relationship Status Dates Dr. Lizet Linares MD Primary Care Provider Active Start: March 29, 2025 Lizet NOLASCO MD Attending Provider Active Start: March 29, 2025 Team Status: Active Member Role/Relationship Status Dates Dr. Lizet Linares MD Primary Care Provider Active Start: April 06, 2025 Lizet NOLASCO MD Attending Provider Active Start: April 06, 2025 Team Status: Active Member Role/Relationship Status Dates Dr. Lizet Linares MD Primary Care Provider Active Start: April 12, 2025 Lizet NOLASCO MD Attending Provider Active Start: April 12, 2025 Team Status: Active Member Role/Relationship Status Dates Dr. Lizet Linares MD Primary Care Provider Active Start: April 25, 2025 Lizet NOLASCO MD Attending Provider Active Start: April 25, 2025 Team Status: Active Member Role/Relationship Status Dates Dr. Lizet Linares MD Primary Care Provider Active Start: May 07, 2025 Lizet NOLASCO MD Attending Provider Active Start: May 07, 2025 Team Status: Inactive Member Role/Relationship Status Dates Dr. Lizet Linares MD Primary Care Provider Active Start: April 12, 2025 End: April 12, 2025 GAIL Richard Attending Provider Active St art: April 12, 2025 End: April 12, 2025 Team Status: Active Member Role/Relationship Status Dates Dr. Lizet Linares MD Primary Care Provider Active Start: April 12, 2025 Lizet NOLASCO MD Attending Provider Active Start: April 12, 2025 Team Status: Active Member Role/Relationship Status Dates Dr. Lizet Linares MD Primary Care Provider Active Start: April 25, 2025 Lizet NOLASCO MD Attending Provider Active Start: April 25, 2025 Team Status: Active Member Role/Relationship Status Dates Dr. Lizet Linares MD Primary Care Provider Active Start: May 07, 2025 Lizet NOLASCO MD Attending Provider Active Start: May 07, 2025 Team Status: Inactive Member Role/Relationship Status Dates Dr. Lizet Linares MD Primary Care Provider Active Start: April 20, 2025 End: April 20, 2025 Ana Maria Geller NP, BRUSH CLEARING LABORER-C Attending Provider Active Start: April 20, 2025 End: April 20, 2025 Team Status: Active Member Role/Relationship Status Dates Dr. Lizet Linares MD Primary Care Provider Active Start: April 25, 2025 Lizet NOLASCO MD Attending Provider Active Start: April 25, 2025 Team Status: Active Member Role/Relationship Status Dates Dr. Lizet Linares MD Primary Care Provider Active Start: May 07, 2025 Lizet NOLASCO MD Attending Provider Active Start: May 07, 2025 Team Status: Inactive Member Role/Relationship Status Dates Dr. Lizet Linares MD Primary Care Provider Active Start: January 23, 2025 End: January 23, 2025 Dr. Lizet Linares MD Attending Provider Active Start: January 23, 2025 End: January 23, 2025 Team Status: Inactive Member Role/Relationship Status Dates Dr. Lizet Linares MD Primary Care Provider Active Start: January 30, 2025 End: January 30, 2025 Dr. Lizet Linares MD Referring Provider Active Start: January 30, 2025 End: January 30, 2025 Shonda REYNOLDS PA Attending Provider Active Start: January 30, 2025 End: January 30, 2025 Team Status: Inactive Member Role/Relationship Status Dates Dr. Lizet Linaers MD Primary Care Provider Active Start: February 26, 2025 End: February 26, 2025 Ana Maria Geller NP BR[employer] CLEARING LABORER-C Attending Provider Active Start: February 26, 2025 End: February 26, 2025 Team Status: Active Member Role/Relationship Status Dates Dr. Lizet Linares MD Primary Care Provider Active Start: March 05, 2025 DORIS MarinC Attending Provider Active Start: March 05, 2025 Team Status: Inactive Member Role/Relationship Status Dates Dr. Lizet Linares MD Primary Care Provider Active Start: March 12, 2025 End: March 12, 2025 Lizet NOLASCO MD Attending Provider Active Start: March 12, 2025 End: March 12, 2025 Lizet NOLASCO MD Referring Provider Active Start: March 12, 2025 End: March 12, 2025 Team Status: Inactive Member Role/Relationship Status Dates Dr. Lizet Linares MD Primary Care Provider Active Start: March 13, 2025 End: March 13, 2025 Ana Maria Geller NP BRUSH CLEARING LABORER-C Attending Provider Active Start: March 13, 2025 End: March 13, 2025 Team Status: Inactive Member Role/Relationship Status Dates Dr. Lizet Linares MD Primary Care Provider Active Start: March 27, 2025 End: March 27, 2025 Dr. Lizet Linares MD Attending Provider Active Start: March 27, 2025 End: March 27, 2025 Team Status: Inactive Member Role/Relationship Status Dates Dr. Lizet Linares MD Primary Care Provider Active Start: April 12, 2025 End: April 12, 2025 Claude REYNOLDS PA Attending Provider Active St art: April 12, 2025 End: April 12, 2025 Team Status: Inactive Member Role/Relationship Status Dates Dr. Lizet Linares MD Primary Care Provider Active Start: April 20, 2025 End: April 20, 2025 Ana Maria Tickton BRUSH CLEARING LABORER, BRUSH CLEARING LABORER-C Attending Provider Active Start: April 20, 2025 End: April 20, 2025 Team Status: Inactive Member Role/Relationship Status Dates Dr. Lizet Lianres MD Primary Care Provider Active Start: March 05, 2025 End: March 05, 2025 Ana Maria Geller BRUSH CLEARING LABORER, BRUSH CLEARING LABORER-C Attending Provider Active Start: March 05, 2025 End: March 05, 2025 Team Status: Inactive Member Role/Relationship Status Dates Dr. Lizet Linares MD Primary Care Provider Active Start: March 08, 2025 End: March 08, 2025 Ana Maria Geller BRUSH CLEARING LABORER, BRUSH CLEARING LABORER-C Attending Provider Active Start: March 08, 2025 End: March 08, 2025 Team Status: Inactive Member Role/Relationship Status Dates Dr. Lizet Linares MD Primary Care Provider Active Start: March 12, 2025 End: March 12, 2025 Lizet NOLASCO MD Attending Provider Active Start: March 12, 2025 End: March 12, 2025 Lizet NOLASCO MD Referring Provider Active Start: March 12, 2025 End: March 12, 2025 Team Status: Inactive Member Role/Relationship Status Dates Dr. Lizet Linares MD Primary Care Provider Active Start: March 13, 2025 End: March 13, 2025 Ana Maria Geller BRUSH CLEARING LABORER, BRUSH CLEARING LABORER-C Attending Provider Active Start: March 13, 2025 End: March 13, 2025 Team Status: Inactive Member Role/Relationship Status Dates Dr. Lizet Linares MD Primary Care Provider Active Start: March 27, 2025 End: March 27, 2025 Dr. Lizet Linares MD Attending Provider Active Start: March 27, 2025 End: March 27, 2025 Team Status: Active Member Role/Relationship Status Dates Dr. Lizet Linares MD Primary Care Provider Active Start: March 29, 2025 Lizet NOLASCO MD Attending Provider Active Start: March 29, 2025 Team Status: Active Member Role/Relationship Status Dates Dr. Lizet Linares MD Primary Care Provider Active Start: April 06, 2025 Lizet NOLASCO MD Attending Provider Active Start: April 06, 2025 Team Status: Inactive Member Role/Relationship Status Dates Dr. Lizet Linares MD Primary Care Provider Active Start: April 12, 2025 End: April 12, 2025 GAIL Richard Attending Provider Active St art: April 12, 2025 End: April 12, 2025 Team Status: Active Member Role/Relationship Status Dates Dr. Lizet Linares MD Primary Care Provider Active Start: April 12, 2025 Lizet NOLASCO MD Attending Provider Active Start: April 12, 2025 Team Status: Inactive Member Role/Relationship Status Dates Dr. Lizet Linares MD Primary Care Provider Active Start: April 20, 2025 End: April 20, 2025 Ana Maria Geller NP, [employer] Attending Provider Active Start: April 20, 2025 End: April 20, 2025 Team Status: Active Member Role/Relationship Status Dates Dr. Lizet Linares MD Primary Care Provider Active Start: April 25, 2025 Lizet NOLASCO MD Attending Provider Active Start: April 25, 2025 Team Status: Active Member Role/Relationship Status Dates Dr. Lizet Linares MD Primary Care Provider Active Start: May 07, 2025 Lizet NOLASCO MD Attending Provider Active Start: May 07, 2025 FOR RECORDS PERTAINING TO PATIENTS WHO ARE [...] BE BASED ON THE PRIMARY CLINICAL RECORDS. [facility] [employer] provides no warranty or guarantee of the accuracy or completeness of information in this document.
[2025-05-26 01:32] LABS: Hematocrit 34.9 % (37-47); Hemoglobin 11.3 g/dL (12.0-15.0); Immature Granulocytes Count 0.040 X10^3/uL (0.0-0.0); Mean Corp Hgb Conc 32.4 g/dL (32-36); Mean Corpuscular Volume 85.7 fL (81-99); Mean Platelet Vol. 9.1 fl (6.2-12.0); NRBC Flagged by Analyzer 0 % (0-5); Platelet Count 349 K/mm3 (150-450); RBC Distribution Width CV 14.6 % (11.6-14.6); RBC Distribution Width SD 45.9 fl (35.1-43.9); Red Blood Count 4.07 M/mm3 (4.2-5.4); White Blood Count 9.9 K/mm3 (4.4-11.0)
[2025-05-26] MEDS: 0.9% Normal Saline (250mL Bag) 250 ML 15 ML IV (01:44)
[2025-05-26] MEDS: Clindamycin 300 MG in Dextrose 5%-Water (50mL Bag) 50 ML 150 MG IV (01:48)
[2025-05-26 01:51] LABS: Anion Gap 12 (5-15); BUN 31 mg/dL (4-19); BUN/Creat Ratio 17.5 RATIO (10-20); Calcium,Total 8.8 mg/dL (7.6-11.0); Carbon Dioxide 22.0 mmol/L (21.0-32.0); Chloride 98 mmol/L (98-108); Estimated Creatinine Clearance 34.98 ml/min (50-250); Glucose 243 mg/dL (70-99); Potassium 4.4 mmol/L (3.3-5.1)
[2025-05-26] MEDS: Lidocaine 1% (20 ml mdv) 20 ML Vial INFILT (02:26)
--- NOTE | 2025-05-26 03:32 | EX.ED.DYSGE1 ---
HPI History of Present Illness Chief Complaint: Edema Informant: patient Narrative Narrative: Presents by EMS from [facility] progressive swelling right upper lip for last 4 days. No fevers or chills. No trauma. History of diabetes. Denies any drainage. Edentulous upper teeth denies wearing dentures. Prior similar symptoms: No [facility] Medical History MRSA (methicillin resistant staph aureus) culture positive Cataract (lens) fragments in eye following cataract surgery Anxiety and depression Diabetes mellitus, type 2 Pulmonary emboli Parathyroid disease History of left heart catheterization (LHC) (~05/21/22) CKD (chronic kidney disease) stage 3, GFR 30-59 ml/min Essential hypertension Orthostatic hypotension Hypothyroidism Chronic back pain Obesity (BMI 35.0-39.9 without comorbidity) Normochromic normocytic anemia Hyperlipidemia Former smoker Opiate abuse, continuous Intervertebral disc disorder with radiculopathy of lumbar region Carpal tunnel syndrome Kidney stones Thyroid disease Migraines Stomach ulcer HTN (hypertension) Home Medications ?Medication ?Instructions ?Recorded ?Last Taken ?Type rizatriptan 10 mg tablet 10 mg PO PRN Migraine Symptoms 12/27/17 04/03/24 History atorvastatin 40 mg tablet 40 mg PO QHS #30 tabs 05/21/22 06/19/24 Rx metoprolol succinate 25 mg 25 mg PO DAILY #30 tabs 05/21/22 06/18/24 Rx tablet,extended release 24 hr pantoprazole 40 mg tablet,delayed 40 mg PO DAILY 06/12/22 06/19/24 History release ranolazine 500 mg tablet,extended 500 mg PO BID #60 tabs 06/12/22 06/19/24 Rx release,12 hr acetaminophen 325 mg tablet 650 mg (2 x 325 mg) PO Q6H PRN PRN 11/24/23 06/16/24 Rx Pain 1-10 Or Fever >100.7 #0 tabs melatonin 3 mg tablet 3 mg PO QHS PRN PRN Insomnia #0 11/24/23 06/19/24 Rx tabs sennosides 8.6 mg-docusate sodium 2 tab PO BID PRN PRN Constipation 01/05/24 06/19/24 Rx 50 mg tablet (Stool #0 tabs Softener-Stimulant Laxative) loperamide 2 mg capsule 2 mg PO Q6H PRN loose stool 04/02/24 03/08/24 History (Anti-Diarrheal (loperamide)) fluticasone propionate 50 2 spray intranasal DAILY 06/20/24 06/19/24 History mcg/actuation nasal spray,suspension (Aller-Scar) nitroglycerin 0.4 mg sublingual 0.4 mg sublingual Q5M PRN chest 06/20/24 Unknown History tablet pain promethazine 25 mg tablet 25 mg PO Q6H PRN nausea and 06/20/24 Unknown History vomiting apixaban 5 mg tablet (Eliquis) 5 mg PO BID 08/19/24 Unknown History bisacodyl 10 mg rectal suppository 10 mg WV DAILY PRN constipation 08/19/24 Unknown History dulaglutide 3 mg/0.5 mL 3 mg subcut QWEEK 08/19/24 Unknown History subcutaneous pen injector (Trulicity) fenofibrate 160 mg tablet 160 mg PO DAILY 08/19/24 Unknown History insulin glargine-yfgn 100 unit/mL 48 unit subcut BID 08/19/24 Unknown History (3 mL) subcutaneous pen magnesium citrate (Citrate of 150 ml PO PRN PRN constipation 08/19/24 Unknown History Magnesia oral) magnesium hydroxide 400 mg/5 mL 30 ml PO DAILY PRN constipation 08/19/24 Unknown History oral suspension (Dulcolax (magnesium hydroxide)) ondansetron 4 mg disintegrating 4 mg PO Q8H PRN PRN Nausea #10 tabs 10/24/24 Unknown Rx tablet carboxymethylcellulose sodium 1 % 1 drp ophthalmic (eye) TID 01/30/25 Unknown History eye drops (Artificial Tears (carboxymethylcellulose)) citalopram 20 mg tablet 20 mg PO QDAY 01/30/25 Unknown History quetiapine 25 mg tablet 25 mg PO QHS 01/30/25 Unknown History levothyroxine 137 mcg tablet 137 mcg PO QDAY #90 tabs 04/26/25 Unknown Rx (Levoxyl) oxycodone-acetaminophen 5 mg-325 1 tab PO .every4 hours PRN pain 30 05/23/25 Unknown Rx mg tablet days #100 tabs clindamycin HCl 150 mg capsule 450 mg (3 x 150 mg) PO TID #90 05/26/25 Unknown Rx CAPSULES oxycodone-acetaminophen 5 mg-325 1 tab PO Q6H PRN PRN Pain 3 days 05/26/25 Unknown Rx mg tablet #12 TABLETS Allergy/AdvReac Type Severity Reaction Status Date / Time celecoxib (From Celebrex) Allergy Itching Verified 05/26/25 00:26 ciprofloxacin (From Cipro) Allergy Swelling Verified 05/26/25 00:26 ciprofloxacin HCl (From Allergy Swelling Verified 05/26/25 00:26 Cipro) codeine Allergy Hives Verified 05/26/25 00:26 ibuprofen Allergy Hives Verified 05/26/25 00:26 naproxen Allergy Hives Verified 05/26/25 00:26 Penicillins Allergy Hives Verified 05/26/25 00:26 tramadol HCl (From Ultram) Allergy Hives Verified 05/26/25 00:26 ketorolac (From Toradol) AdvReac Swelling Verified 05/26/25 00:26 Family History Mother Cancer CVA (cerebral vascular accident) Hypertension Heart disease Myocardial infarction Diabetes Father Asthma Surgical History History of cholecystectomy S/P trigger finger release H/O: hysterectomy Hx of section Social History household members: other details: currently living in a NH for therapy for chronic back pain housing: alf Smoking Status: Former smoker Tobacco: How many years used: 46 how long ago did patient quit smoking: Quit 09/2021, smoked 1 ppd since teen until quit. alcohol intake: never substance use type: other details: History of chronic opiate use. Denies abuse. ROS ROS ED Constitutional Constitutional ED: Denies fever(s) ENT ENT ED: Reports other Details: Right upper lip swelling, no tongue swelling no trouble swallowing. Cardiovascular Cardiovascular: Denies chest pain Respiratory/Chest Respiratory/Chest: Denies cough Gastrointestinal Gastrointestinal: Denies diarrhea or vomiting Musculoskeletal Musculoskeletal: Denies none Integumentary Denies rash or wounds Neurologic Neurologic: Denies weakness EXAM Physical Exam Const Vital Signs: 05/26/25 00:26 05/26/25 00:30 05/26/25 00:34 Temperature 98.8 F 98.8 F Temperature Source Oral Oral Pulse Rate 87 87 Respiratory Rate 20 H 20 H Respiratory Effort Normal Respiratory Pattern Normal Blood Pressure 147/50 H 147/50 H Blood Pressure Mean 82 82 Pulse Ox 95 95 Oxygen Delivery Method Room Air Room Air 05/26/25 01:32 05/26/25 02:00 05/26/25 02:26 Temperature 98.8 F 98.8 F Temperature Source Oral Oral Pulse Rate 76 74 81 Respiratory Rate 16 20 H 16 Respiratory Effort Respiratory Pattern Blood Pressure 146/86 H 130/54 H 125/58 H Blood Pressure Mean 106 79 80 Pulse Ox 98 92 98 Oxygen Delivery Method Room Air Room Air Room Air 05/26/25 04:00 05/26/25 04:08 Temperature 98.8 F Temperature Source Pulse Rate 80 80 Respiratory Rate 16 Respiratory Effort Respiratory Pattern Blood Pressure 139/56 H 139/56 H Blood Pressure Mean 83 83 Pulse Ox 93 93 Oxygen Delivery Method Room Air Positive well nourished and well developed General Appearance ED: well developed HEENT HEENT Narrative: Right upper lip swelling redness area near midline with small scab. Induration across peers tender to palpation. Edentulous. No tongue swelling airway patent. normocephalic Eyes General Eye ED: Yes normal appearance of both eyes Neck full ROM Resp normal respiratory effort and normal air movement Cardio regular rate and regular rhythm GI soft to palpation Extremity normal to inspection and full ROM Neuro oriented x3 Skin no rashes or lesions noted and no wounds MDM MDM MDM Narrative Medical decision making narrative: Interventions / MDM: Differential diagnosis: Upper lip infection, history of diabetes Diagnosis considered but do not suspect: Abscess however needle I&D with no drainage. My EKG interpretation: N/A Imaging independently reviewed and interpreted by myself: N/A External documents reviewed: N/A Test considered but not ordered:N/A ED course: Patient isolated upper lip swelling concerns for infection tender palpation she is a diabetic. Laboratory studies sent multiple allergies however can tolerate clindamycin which was ordered. Low-dose morphine for symptom control. Labs were normal white count 9.9. Creatinine 1.76 history of CKD. Procedure note: Written consent obtained for procedure. Risk and benefit discussed. Alcohol prep of the skin. 2 cc 1% lidocaine used for local analgesia of the upper lip going through the scab region. 18-gauge needle used going 9:00 11:00 and 12:00 direction there is no exudative drainage. Gentle extraction noted only bloody drainage no exudative drainage. Patient tolerated procedure well. Patient will be continued on clindamycin and short prescription for oxycodone to use as needed medical bed provided. She is given follow-up with plastics for outpatient evaluation with return precautions. All questions were answered. Re-evaluation: stable Disposition discussed with patient/family/significant other: Patient Case discussed with consulting clinician: N/A This note was generated with [email or web address] dictation software. It may contain incorrect words, spelling, and punctuation that were not noted in checking the note before signing. Lab Data Labs: Laboratory Results - last 24 hr 05/26/25 01:25 WBC 9.9 RBC 4.07 L Hgb 11.3 L Hct 34.9 L MCV 85.7 MCH 27.8 MCHC 32.4 RDW Std Deviation 45.9 H RDW Coeff of Anisa 14.6 Plt Count 349 MPV 9.1 Immature Gran % (Auto) 0.400 Neut % (Auto) 67.7 Lymph % (Auto) 24.6 [place] % (Auto) 6.3 Eos % (Auto) 0.6 Baso % (Auto) 0.4 Absolute Neuts (auto) 6.7 Absolute Lymphs (auto) 2.42 Nucleated RBC % 0 Sodium 132 L Potassium 4.4 Chloride 98 Carbon Dioxide 22.0 Anion Gap 12 BUN 31 H Creatinine 1.76 H Estim Creat Clear Calc 34.98 L Est GFR (MDRD) Non-Af 33 L BUN/Creatinine Ratio 17.5 Glucose 243 H Calcium 8.8 Discharge Plan Triage Chief Complaint: Edema ED Provider: Raúl Alejo Dx/Rx/DC Orders Clinical Impression: Infected lip laceration, History of diabetes mellitus, CKD (chronic kidney disease) stage 3, GFR 30-59 ml/min Instructions: ED Wound Check (Infection) Prescriptions: New clindamycin HCl 150 mg capsule 450 mg PO TID Qty: 90 0RF oxycodone-acetaminophen 5-325 mg tablet 1 tab PO Q6H PRN PRN (Reason: Pain) 3 Days Qty: 12 0RF No Action pantoprazole 40 mg tablet,delayed release (DR/EC) 40 mg PO DAILY ranolazine 500 mg tablet extended release 12 hr 500 mg PO BID Qty: 60 11RF citalopram 20 mg tablet 20 mg PO QDAY Artificial Tears (cmc) 1 % drops 1 drp ophthalmic (eye) TID rizatriptan 10 tablet 10 mg PO PRN Patient Comments: metoprolol succinate 25 mg Tablet Extended Release 24 Hr 25 mg PO DAILY Qty: 30 2RF atorvastatin 40 mg tablet 40 mg PO QHS Qty: 30 2RF quetiapine 25 mg tablet 25 mg PO QHS acetaminophen 325 mg Tablet 650 mg PO Q6H PRN PRN (Reason: Pain 1-10 Or Fever >100.7) Qty: 0 0RF melatonin 3 mg Tablet 3 mg PO QHS PRN PRN (Reason: Insomnia) Qty: 0 0RF loperamide [Anti-Diarrheal (loperamide)] 2 mg capsule 2 mg PO Q6H PRN (Reason: loose stool) magnesium hydroxide [Dulcolax (magnesium hydroxide)] 400 mg/5 mL suspension 30 ml PO DAILY PRN (Reason: constipation) magnesium citrate [Citrate of Magnesia] Solution 150 ml PO PRN PRN (Reason: constipation) bisacodyl 10 mg suppository 10 mg WV DAILY PRN (Reason: constipation) Trulicity 3 mg/0.5 mL pen injector 3 mg subcut QWEEK fenofibrate 160 mg tablet 160 mg PO DAILY Eliquis 5 mg Tablet 5 mg PO BID insulin glargine-yfgn 100 unit/mL (3 mL) Insulin Pen 48 unit subcut BID ondansetron 4 mg tablet,disintegrating 4 mg PO Q8H PRN PRN (Reason: Nausea) Qty: 10 0RF sennosides-docusate sodium [Stool Softener-Stimulant Laxat] 8.6-50 mg Tablet 2 tab PO BID PRN PRN (Reason: Constipation) Qty: 0 0RF nitroglycerin 0.4 mg tablet, sublingual 0.4 mg sublingual Q5M PRN (Reason: chest pain) Rx Instructions: do not exceed 3 doses per episode fluticasone propionate [Aller-Scar] 50 mcg/actuation spray,suspension 2 spray intranasal DAILY Rx Instructions: administer into each nostril promethazine 25 mg tablet 25 mg PO Q6H PRN (Reason: nausea and vomiting) levothyroxine [Levoxyl] 137 mcg tablet 137 mcg PO QDAY Qty: 90 1RF oxycodone-acetaminophen 5-325 mg tablet 1 tab PO .every4 hours PRN (Reason: pain) 30 Days Qty: 100 0RF Primary Care Provider: Lizet Linares Referrals: Lizet Linares MD [Primary Care Provider] - Juan Whatley MD [Med Staff - Active Staff] - 3-5 Days Activity Restrictions/Additional Instructions: Upper lip infection. Blood work normal white count 9.9. You are given clindamycin IV. 18-gauge needle for needle decompression there is no exudative drainage. Taking finish antibiotic prescribed. Pain medicines as needed. Follow-up with Dr. Whatley. If you develop worsening symptoms or fevers, return to the ED for reevaluation. Print Language: [place] Disposition Disposition: Home, Self Care
--- NOTE | 2025-05-26 04:15 | ED.RN ---
Attempted to call [place] to give pt report. No answer.
== END 2025-05-26 06:38 | disposition home or self-care (01) ==
PROVIDERS: Emergency Provider Emergency Medicine; PCP Internal Medicine; Visit Provider Emergency Medicine
DX: S01.511A Laceration without foreign body of lip, initial encounter (principal); E11.22 Type 2 diabetes mellitus with diabetic chronic kidney disease; N18.30 Chronic kidney disease, stage 3 unspecified; R60.9 Edema, unspecified; Z86.711 Personal history of pulmonary embolism; I12.9 Hypertensive chronic kidney disease with stage 1 through stage 4 chronic kidney disease, or unspecified chronic kidney disease; E78.5 Hyperlipidemia, unspecified; Z90.710 Acquired absence of both cervix and uterus; Z87.891 Personal history of nicotine dependence; Z83.3 Family history of diabetes mellitus; Z90.49 Acquired absence of other specified parts of digestive tract; E03.9 Hypothyroidism, unspecified; X58.XXXA Exposure to other specified factors, initial encounter
CPT/HCPCS: 96365; 96375; 99285; 80048; 85025; A4216; J2405

== ENCOUNTER 2025-05-28 09:14 | Inpatient (IN) | payer MEDICARE, MEDICAID, SELFPAY ==
[2025-05-28] VITALS (9 sets, daily range): BP systolic 127–152; BP diastolic 42–65; PULSE 64–73; RESP 15–18; TEMP 36.6–37.2; O2SAT 93–98; BMI 39.7; BMI 39.2
[2025-05-28 10:04] LABS: Hematocrit 35.1 % (37-47); Hemoglobin 11.2 g/dL (12.0-15.0); Immature Granulocytes Count 0.020 X10^3/uL (0.0-0.0); Mean Corp Hgb Conc 31.9 g/dL (32-36); Mean Corpuscular Volume 86.2 fL (81-99); Mean Platelet Vol. 9.3 fl (6.2-12.0); NRBC Flagged by Analyzer 0 % (0-5); Platelet Count 369 K/mm3 (150-450); RBC Distribution Width CV 14.7 % (11.6-14.6); RBC Distribution Width SD 46.3 fl (35.1-43.9); Red Blood Count 4.07 M/mm3 (4.2-5.4); White Blood Count 6.7 K/mm3 (4.4-11.0)
[2025-05-28] MEDS: Clindamycin 900 MG/50 ML BAG 75 MG IV (10:38)
[2025-05-28 10:51] LABS: Anion Gap 13 (5-15); BUN 25 mg/dL (4-19); BUN/Creat Ratio 17.7 RATIO (10-20); Calcium,Total 8.9 mg/dL (7.6-11.0); Carbon Dioxide 22.7 mmol/L (21.0-32.0); Chloride 97 mmol/L (98-108); Estimated Creatinine Clearance 41.91 ml/min (50-250); Glucose 160 mg/dL (70-99); Potassium 4.1 mmol/L (3.3-5.1)
--- NOTE | 2025-05-28 11:34 | HP.PCM.HOS_ITS ---
HPI - General General Date of Admission: 05/28/25 Date of Service: 05/28/25 Chief Complaint: Worsening upper lip wound with surrounding cellulitis HPI Narrative SURI OCONNOR, is a 59 F who presented to [facility] ED on 05/28/25 with worsening upper lip wound with surrounding cellulitis. Patient lives at [facility]. She initially came to the ED on Friday 05/25 with upper lip swelling. She attributed this to a spider bite that happened on . She had significant swelling noted on Wednesday morning. In the ED they attempted to aspirate it but there was no drainage noted. She was given a dose of IV clindamycin (penicillin allergy) in the ED and then discharged back to her facility on p.o. clindamycin. She had no improvement with the oral antibiotics over the weekend so she came back in today for further evaluation. In the ED she was noted to have continued right upper lip swelling with surrounding cellulitis in the skin right above the lip. She noted considerable pain in the area. She was normotensive, afebrile and otherwise hemodynamically stable and WBC count was normal. However, given worsening swelling with cellulitis and suspected failed outpatient antibiotics, hospitalist was contacted for admission. I saw the patient at bedside in the ED. Patient was sitting back fairly comfortably in bed, conversing normally, in no acute distress. She had been given a dose of IV morphine for the pain with moderate relief of pain. She reports mild pain at this time. Denies any fevers or chills. Denies any other pain or discomfort. Will be admitted for further management. [facility] Medical History MRSA (methicillin resistant staph aureus) culture positive Cataract (lens) fragments in eye following cataract surgery Anxiety and depression Diabetes mellitus, type 2 Pulmonary emboli Parathyroid disease History of left heart catheterization (LHC) (~05/21/22) CKD (chronic kidney disease) stage 3, GFR 30-59 ml/min Essential hypertension Orthostatic hypotension Hypothyroidism Chronic back pain Obesity (BMI 35.0-39.9 without comorbidity) Normochromic normocytic anemia Hyperlipidemia Former smoker Opiate abuse, continuous Intervertebral disc disorder with radiculopathy of lumbar region Carpal tunnel syndrome Kidney stones Thyroid disease Migraines Stomach ulcer HTN (hypertension) Home Medications ?Medication ?Instructions ?Recorded ?Last Taken ?Type rizatriptan 10 mg tablet 10 mg PO PRN Migraine Sympto ms 12/27/17 04/03/24 History atorvastatin 40 mg tablet 40 mg PO QHS #30 tabs 06/19/24 Rx metoprolol succinate 25 mg 25 mg PO DAILY #30 tabs 06/18/24 Rx tablet,extended release 24 hr pantoprazole 40 mg tablet,delayed 40 mg PO DAILY 06/1206/19/24 History release ranolazine 500 mg tablet,extended 500 mg PO BID #60 ta bs 06/12/22 06/19/24 Rx release,12 hr acetaminophen 325 mg tablet 650 mg (2 x 325 mg) PO Q6H PRN PRN 11/24/23 06/16/24 Rx Pain 1-10 Or Fever >100.7 #0 tabs melatonin 3 mg tablet 3 mg PO QHS PRN PRN Insomnia #0 11/24/23 06/19/24 Rx tabs sennosides 8.6 mg-docusate sodium 2 tab PO BID PRN PRN Constipation 01/05/24 06/19/24 Rx 50 mg tablet (Stool #0 tabs Softener-Stimulant Laxative) loperamide 2 mg capsule 2 mg PO Q6H PRN loose stool 04/02/24 03/08/24 History (Anti-Diarrheal (loperamide)) fluticasone propionate 50 2 spray intranasal DAILY 06/19/24 History mcg/actuation nasal spray,suspension (Aller-Scar) nitroglycerin 0.4 mg sublingual 0.4 mg sublingual Q5M PRN chest 06/20/24 Unknown History tablet pain promethazine 25 mg tablet 25 mg PO Q6H PRN nausea and 06/20/24 Unknown History vomiting apixaban 5 mg tablet (Eliquis) 5 mg PO BID 08/19/24 Un known History bisacodyl 10 mg rectal suppository 10 mg [place] DAILY PRN constipation 08/19/24 Unknown History dulaglutide 3 mg/0.5 mL 3 mg subcut QWEEK 08/19/24 U nknown History subcutaneous pen injector (Trulicity) fenofibrate 160 mg tablet 160 mg PO DAILY 08/19/24 Unk nown History insulin glargine-yfgn 100 unit/mL 48 unit subcut BID 1 Unknown History (3 mL) subcutaneous pen magnesium citrate (Citrate of 150 ml PO PRN PRN consti pation 08/19/24 Unknown History Magnesia oral) magnesium hydroxide 400 mg/5 mL 30 ml PO DAILY PRN con stipation 08/19/24 Unknown History oral suspension (Dulcolax (magnesium hydroxide)) ondansetron 4 mg disintegrating 4 mg PO Q8H PRN PRN Na usea #10 tabs 10/24/24 Unknown Rx tablet carboxymethylcellulose sodium 1 % 1 drp ophthalmic (ey e) TID 01/30/25 Unknown History eye drops (Artificial Tears (carboxymethylcellulose)) citalopram 20 mg tablet 20 mg PO QDAY 01/30/25 Unkno wn History quetiapine 25 mg tablet 25 mg PO QHS 01/30/25 Unknow n History levothyroxine 137 mcg tablet 137 mcg PO QDAY #90 tabs 04/26/25 Unknown Rx (Levoxyl) oxycodone-acetaminophen 5 mg-325 1 tab PO .every4 hour s PRN pain 30 05/23/25 Unknown Rx mg tablet days #100 tabs clindamycin HCl 150 mg capsule 450 mg (3 x 150 mg) PO TID #90 05/26/25 Unknown Rx CAPSULES oxycodone-acetaminophen 5 mg-325 1 tab PO Q6H PRN PRN Pain 3 days 05/26/25 Unknown Rx mg tablet #12 TABLETS Allergy/AdvReac Type Severity Reaction Status Date / Time celecoxib (From Celebrex) Allergy Itching Verified 05/28/25 09:15 ciprofloxacin (From Cipro) Allergy Swelling Verified 05/28/25 09:15 ciprofloxacin HCl (From Allergy Swelling Verified 05/28/25 09:15 Cipro) codeine Allergy Hives Verified 05/28/25 09:15 ibuprofen Allergy Hives Verified 05/28/25 09:15 naproxen Allergy Hives Verified 05/28/25 09:15 Penicillins Allergy Hives Verified 05/28/25 09:15 tramadol HCl (From Ultram) Allergy Hives Verified 05/28/25 09:15 ketorolac (From Toradol) AdvReac Swelling Verified 05/28/25 09:15 Family History Mother Cancer CVA (cerebral vascular accident) Hypertension Heart disease Myocardial infarction Diabetes Father Asthma Surgical History History of cholecystectomy S/P trigger finger release H/O: hysterectomy Hx of section Social History household members: other details: currently living in a NH for therapy for chronic back pain housing: senior living Smoking Status: Former smoker Tobacco: How many years used: 46 how long ago did patient quit smoking: Quit 09/2021, smoked 1 ppd since teen until quit. alcohol intake: never substance use type: other details: History of chronic opiate use. Denies abuse. ROS Constitutional Constitutional: Denies chills, fatigue, fever(s) or weakness Eyes Eyes: Denies change in vision ENT HEENT: Reports other Details: Upper lip swelling with pain Cardiovascular Cardiovascular: Denies chest pain Respiratory/Chest Respiratory/Chest: Denies shortness of breath at rest Gastrointestinal Gastrointestinal: Denies abdominal pain Vital Signs Vital Signs Vital Signs: 05/28/25 09:15 05/28/25 09:15 05/28/25 09:31 Temperature 98.8 F 98.8 F Temperature Source Oral Oral Pulse Rate 73 73 73 Respiratory Rate 16 16 16 Blood Pressure 127/51 H 127/51 H Blood Pressure Mean 76 76 Pulse Ox 97 97 97 05/28/25 10:40 Temperature 98.2 F Temperature Source Oral Pulse Rate 67 Respiratory Rate 18 Blood Pressure 131/42 H Blood Pressure Mean 71 Pulse Ox 95 Weight Weight: 92.4 kg Body Mass Index (BMI) 39.7 Physical Exam Const alert, oriented x3 and no apparent distress Constitutional Narrative: Upper middle-aged female, class II obesity, mildly fatigued appearing but otherwise sitting back comfortably in bed, conversing normally, in no acute distress. General Appearance: cooperative and comfortable HEENT normocephalic, head/scalp atraumatic, hearing grossly normal bilaterally and moist oral mucous membranes HEENT Narrative: Significant right upper lip swelling with surrounding erythema into the skin above the lip. No fluctuance noted. Eyes PERRL, EOMs intact bilaterally and conjunctivae normal Neck full ROM Chest inspection of chest normal Resp normal respiratory effort, normal air movement, no use of accessory muscles and clear to auscultation bilaterally Cardio regular rate, regular rhythm, no murmurs and peripheral pulses 2+ throughout GI normal to inspection, nondistended, normoactive bowel sounds, soft to palpation, non-tender and non-distended Back/Spine normal ROM Extremity normal to inspection, full ROM and no pedal edema Skin no rashes or lesions noted Psych mental status grossly normal Mood & Affect: anxious Results Lab / Micro Data 05/28/25 09:45 05/28/25 09:45 Labs: Laboratory Results - last 24 hr 05/28/25 09:45: WBC 6.7, RBC 4.07 L, Hgb 11.2 L, Hct 35.1 L, MCV 86.2, MCH 27.5, MCHC 31.9 L, RDW Std Deviation 46.3 H, RDW Coeff of Anisa 14.7 H, Plt Count 369, MPV 9.3, Immature Gran % (Auto) 0.300, Neut % (Auto) 61.7, Lymph % (Auto) 27.3, [place] % (Auto) 8.7, Eos % (Auto) 1.3, Baso % (Auto) 0.7, Absolute Neuts (auto) 4.1, Absolute Lymphs (auto) 1.82, Nucleated RBC % 0, Sodium 133, Potassium 4.1, Chloride 97 L, Carbon Dioxide 22.7, Anion Gap 13, BUN 25 H, Creatinine 1.43 H, E stim Creat Clear Calc 41.91 L, Est GFR (MDRD) Non-Af 42 L, BUN/Creatinine Ratio 17.7, Glucose 160 H, Lactic Acid 1.2, Calcium 8.9 Assessment & Plan Assessment/Plan (1) Infected lip laceration: PLAN: Plan Patient is a 59-year-old female who presented to [facility] ED on 05/28/2025 with worsening upper lip swelling with cellulitis and failed outpatient antibiotics. 1. Right upper lip swelling with cellulitis and failed outpatient antibiotics ? Admit under inpatient status to [facility]. Presentation consistent with cellulitis secondary to lip wound due to insect bite. Poorly controlled diabetes likely contributing to development of infection. Failed outpatient p.o. clindamycin. Notably aspiration was attempted in the ED on 05/25 with no drainage noted. Will treat with IV doxycycline for now. No systemic signs of infection at this time. Pain control with oxycodone as needed. Monitor closely. No need for imaging for further evaluation at this time. 2. Poorly controlled type 2 diabetes mellitus ? Most recent A1c 10.5% on 04/06. Blood glucose 160 on admit. Will treat with reduced dose of Lantus 30 units twice daily and Humalog 8 units plus sliding scale insulin with meals while inpatient, adjust as needed. Hold home Trulicity. 3. Chronic debility ? Has lived at [facility] for the past 1.5 years. Will plan to return there at discharge. Chronic medical conditions: ? Class II obesity: BMI 39.8 on admit. Complicates hospital course and care. ? CKD stage IIIb: Creatinine 1.43 on admit, stable at baseline. ? Hypothyroidism: Continue home Synthroid. ? GERD: Continue home PPI. ? Mood disorder: Stable. Continue home citalopram and Seroquel. ? History of VTE, hypertension, hyperlipidemia: Normotensive on admit. Continue home Eliquis, metoprolol, ranolazine, atorvastatin and fenofibrate. DVT prophylaxis: Not indicated, on Eliquis CODE STATUS: Full code, verified Expected disposition: Back to [facility], 2 to 3 days Total clinical time spent by myself addressing the patient's medical issues, reviewing all the data, and collaborating with patient's care team: 75 minutes. Charges/Coding Visit Charges Inpatient E&M: 91023 Init Hosp L3
[2025-05-28] MEDS: Vancomycin HCl 2,000 MG in 0.9% Normal Saline (500mL Bag) 500 ML 250 MG IV (11:44)
--- NOTE | 2025-05-28 12:07 | EX.ED.DYSGE1 ---
HPI History of Present Illness Chief Complaint: Wound Narrative Narrative: Patient is a 59-year-old female presenting emergency department for a wound to the right upper lip. Patient has a past medical history as below including diabetes and MRSA. Patient states that on Wednesday she started noticing that her lip was swelling and red. She came to the ED to be evaluated and a needle aspiration was attempted. She was given clindamycin and discharged home on this. Since then she states that the lip swelling has worsened. She denies any fever or chills. Denies any difficulty swallowing or breathing. She has been taking the clindamycin as prescribed. She was seen by an [employer] REMITTANCE CLERK today and was referred here to the ED for further evaluation. Denies chest pain, shortness of breath, abdominal pain, nausea or vomiting. [facility] Medical History MRSA (methicillin resistant staph aureus) culture positive Cataract (lens) fragments in eye following cataract surgery Anxiety and depression Diabetes mellitus, type 2 Pulmonary emboli Parathyroid disease History of left heart catheterization (LHC) (~05/21/22) CKD (chronic kidney disease) stage 3, GFR 30-59 ml/min Essential hypertension Orthostatic hypotension Hypothyroidism Chronic back pain Obesity (BMI 35.0-39.9 without comorbidity) Normochromic normocytic anemia Hyperlipidemia Former smoker Opiate abuse, continuous Intervertebral disc disorder with radiculopathy of lumbar region Carpal tunnel syndrome Kidney stones Thyroid disease Migraines Stomach ulcer HTN (hypertension) Home Medications ?Medication ?Instructions ?Recorded ?Last Taken ?Type rizatriptan 10 mg tablet 10 mg PO PRN Migraine Symptoms 12/27/17 04/03/24 History atorvastatin 40 mg tablet 40 mg PO QHS #30 tabs 05/21/22 06/19/24 Rx metoprolol succinate 25 mg 25 mg PO DAILY #30 tabs 05/21/22 06/18/24 Rx tablet,extended release 24 hr pantoprazole 40 mg tablet,delayed 40 mg PO DAILY 06/12/22 06/19/24 History release ranolazine 500 mg tablet,extended 500 mg PO BID #60 tabs 06/12/22 06/19/24 Rx release,12 hr acetaminophen 325 mg tablet 650 mg (2 x 325 mg) PO Q6H PRN PRN 11/24/23 06/16/24 Rx Pain 1-10 Or Fever >100.7 #0 tabs melatonin 3 mg tablet 3 mg PO QHS PRN PRN Insomnia #0 11/24/23 06/19/24 Rx tabs sennosides 8.6 mg-docusate sodium 2 tab PO BID PRN PRN Constipation 01/05/24 06/19/24 Rx 50 mg tablet (Stool #0 tabs Softener-Stimulant Laxative) loperamide 2 mg capsule 2 mg PO Q6H PRN loose stool 04/02/24 03/08/24 History (Anti-Diarrheal (loperamide)) fluticasone propionate 50 2 spray intranasal DAILY 06/20/24 06/19/24 History mcg/actuation nasal spray,suspension (Aller-Scar) nitroglycerin 0.4 mg sublingual 0.4 mg sublingual Q5M PRN chest 06/20/24 Unknown History tablet pain promethazine 25 mg tablet 25 mg PO Q6H PRN nausea and 06/20/24 Unknown History vomiting apixaban 5 mg tablet (Eliquis) 5 mg PO BID 08/19/24 Unknown History bisacodyl 10 mg rectal suppository 10 mg [place] DAILY PRN constipation 08/19/24 Unknown History dulaglutide 3 mg/0.5 mL 3 mg subcut QWEEK 08/19/24 Unknown History subcutaneous pen injector (Trulicity) fenofibrate 160 mg tablet 160 mg PO DAILY 08/19/24 Unknown History insulin glargine-yfgn 100 unit/mL 48 unit subcut BID 08/19/24 Unknown History (3 mL) subcutaneous pen magnesium citrate (Citrate of 150 ml PO PRN PRN constipation 08/19/24 Unknown History Magnesia oral) magnesium hydroxide 400 mg/5 mL 30 ml PO DAILY PRN constipation 08/19/24 Unknown History oral suspension (Dulcolax (magnesium hydroxide)) ondansetron 4 mg disintegrating 4 mg PO Q8H PRN PRN Nausea #10 tabs 10/24/24 Unknown Rx tablet carboxymethylcellulose sodium 1 % 1 drp ophthalmic (eye) TID 01/30/25 Unknown History eye drops (Artificial Tears (carboxymethylcellulose)) citalopram 20 mg tablet 20 mg PO QDAY 01/30/25 Unknown History quetiapine 25 mg tablet 25 mg PO QHS 01/30/25 Unknown History levothyroxine 137 mcg tablet 137 mcg PO QDAY #90 tabs 04/26/25 Unknown Rx (Levoxyl) oxycodone-acetaminophen 5 mg-325 1 tab PO .every4 hours PRN pain 30 05/23/25 Unknown Rx mg tablet days #100 tabs clindamycin HCl 150 mg capsule 450 mg (3 x 150 mg) PO TID #90 05/26/25 Unknown Rx CAPSULES oxycodone-acetaminophen 5 mg-325 1 tab PO Q6H PRN PRN Pain 3 days 05/26/25 Unknown Rx mg tablet #12 TABLETS Allergy/AdvReac Type Severity Reaction Status Date / Time celecoxib (From Celebrex) Allergy Itching Verified 05/28/25 09:15 ciprofloxacin (From Cipro) Allergy Swelling Verified 05/28/25 09:15 ciprofloxacin HCl (From Allergy Swelling Verified 05/28/25 09:15 Cipro) codeine Allergy Hives Verified 05/28/25 09:15 ibuprofen Allergy Hives Verified 05/28/25 09:15 naproxen Allergy Hives Verified 05/28/25 09:15 Penicillins Allergy Hives Verified 05/28/25 09:15 tramadol HCl (From Ultram) Allergy Hives Verified 05/28/25 09:15 ketorolac (From Toradol) AdvReac Swelling Verified 05/28/25 09:15 Family History Mother Cancer CVA (cerebral vascular accident) Hypertension Heart disease Myocardial infarction Diabetes Father Asthma Surgical History History of cholecystectomy S/P trigger finger release H/O: hysterectomy Hx of section Social History household members: other details: currently living in a NH for therapy for chronic back pain housing: [facility] Smoking Status: Former smoker Tobacco: How many years used: 46 how long ago did patient quit smoking: Quit 09/2021, smoked 1 ppd since teen until quit. alcohol intake: never substance use type: other details: History of chronic opiate use. Denies abuse. ROS ROS ED ROS Narrative See HPI EXAM Physical Exam Narrative Exam Narrative: Vital signs: Reviewed General: Alert and oriented. No acute distress HEENT: Head is normocephalic and atraumatic, sinuses nontender, pupils equal round and reactive. Nares are patent. There is mild swelling and erythema to the right upper lip extending to the naris. There is no swelling or erythema of the bottom lip. There is no abnormalities of the oropharynx or tongue. Neck: Supple without lymphadenopathy nontender Cardiovascular: Regular rate and rhythm, no murmurs. No rubs or gallops. Normal S1 and S2 Respiratory: Clear to auscultation bilaterally. No wheezes, rales, rhonchi Abdominal: Soft and tender. Normal bowel sounds. No guarding or rebound. Nonsurgical abdomen Extremities: No tenderness. No bruising. Normal range of motion. Normal sensation. Skin: No rash or redness. Neurological: Cranial nerves II through XII are grossly intact. Normal strength and sensation. Normal cerebellar function The rest of the physical exam is unremarkable Const Vital Signs: 05/28/25 09:15 05/28/25 09:15 05/28/25 09:31 Temperature 98.8 F 98.8 F Temperature Source Oral Oral Pulse Rate 73 73 73 Respiratory Rate 16 16 16 Blood Pressure 127/51 H 127/51 H Blood Pressure Mean 76 76 Pulse Ox 97 97 97 05/28/25 10:40 Temperature 98.2 F Temperature Source Oral Pulse Rate 67 Respiratory Rate 18 Blood Pressure 131/42 H Blood Pressure Mean 71 Pulse Ox 95 MDM MDM MDM Narrative Medical decision making narrative: Patient is a 59-year-old female presenting to the emergency department for a cellulitis of the right upper lip. Patient was seen and examined. Vitals are stable. Patient resting in bed comfortably no acute distress. Patient is afebrile on arrival. She is tolerating her secretions. No difficulty breathing. There is no swelling of her posterior oropharynx or palate concerning for Lud[place]igs. There is no gingival swelling or tenderness to suspect a dental infection. Likely a cellulitis versus abscess of the right upper lip. She has been taking clindamycin outpatient and has failed this. With the continued worsening of the cellulitis patient would likely benefit from inpatient admission for IV antibiotics. CBC with no leukocytosis. With the isolated swelling and cellulitis there is no indication for CT imaging of face. Patient agreeable with admission. Patient admitted to hospitalist for further management. She does have a history of MRSA, Vanco and clindamycin given here in the ED. History & Record Review Discussion w/independent historian: Patient Additional record(s) reviewed:: Prior outpatient record and Prior ED visit Lab Data Attestation: I reviewed the patient's lab results. Labs: Laboratory Results - last 24 hr 05/28/25 09:45 WBC 6.7 RBC 4.07 L Hgb 11.2 L Hct 35.1 L MCV 86.2 MCH 27.5 MCHC 31.9 L RDW Std Deviation 46.3 H RDW Coeff of Anisa 14.7 H Plt Count 369 MPV 9.3 Immature Gran % (Auto) 0.300 Neut % (Auto) 61.7 Lymph % (Auto) 27.3 [place] % (Auto) 8.7 Eos % (Auto) 1.3 Baso % (Auto) 0.7 Absolute Neuts (auto) 4.1 Absolute Lymphs (auto) 1.82 Nucleated RBC % 0 Sodium 133 Potassium 4.1 Chloride 97 L Carbon Dioxide 22.7 Anion Gap 13 BUN 25 H Creatinine 1.43 H Estim Creat Clear Calc 41.91 L Est GFR (MDRD) Non-Af 42 L BUN/Creatinine Ratio 17.7 Glucose 160 H Lactic Acid 1.2 Calcium 8.9 Management Discussion w/another healthcare provider: Hospitalist Discharge Plan Disposition Disposition: Acute Care Hospital [facility] Discharge Date/Time: 05/28/25 13:26
[2025-05-28] MEDS: 0.9% Normal Saline (1000mL) 1,000 ML 999 ML IV (14:35)
[2025-05-28] MEDS: HYDROmorphone 0.5 MG/0.5 ML SYRINGE IV ×2 (17:04→21:55)
[2025-05-28] MEDS: 0.9% Saline Lock 10 ML Syringe IV ×2 (17:05→21:56)
[2025-05-28] MEDS: Doxycycline 100 MG in 0.9% Normal Saline (250mL Bag) 250 ML 250 MG IV (21:56)
[2025-05-28] MEDS: 0.9% Normal Saline (250mL Bag) 250 ML 15 ML IV (21:57)
[2025-05-28] MEDS: Insulin Glargine-YFGN 100 UNIT/ML Pen 30 UNIT SC (23:19)
[2025-05-29 02:10] VITALS: BP 146/59; PULSE 70; RESP 15; TEMP 36.9; O2SAT 96
[2025-05-29] MEDS: HYDROmorphone 0.5 MG/0.5 ML SYRINGE IV ×2 (02:16→06:49)
[2025-05-29] MEDS: 0.9% Saline Lock 10 ML Syringe IV ×2 (02:17→06:49)
[2025-05-29 06:47] VITALS: BP 143/58; PULSE 70; RESP 15; TEMP 37.2; O2SAT 97
[2025-05-29 07:13] LABS: Hematocrit 33.4 % (37-47); Hemoglobin 10.6 g/dL (12.0-15.0); Mean Corp Hgb Conc 31.7 g/dL (32-36); Mean Corpuscular Volume 86.8 fL (81-99); Mean Platelet Vol. 9.3 fl (6.2-12.0); Platelet Count 371 K/mm3 (150-450); RBC Distribution Width CV 14.7 % (11.6-14.6); RBC Distribution Width SD 46.8 fl (35.1-43.9); Red Blood Count 3.85 M/mm3 (4.2-5.4); White Blood Count 6.5 K/mm3 (4.4-11.0)
[2025-05-29 07:40] LABS: Anion Gap 14 (5-15); BUN 21 mg/dL (4-19); BUN/Creat Ratio 16.6 RATIO (10-20); Calcium,Total 8.6 mg/dL (7.6-11.0); Carbon Dioxide 20.5 mmol/L (21.0-32.0); Chloride 102 mmol/L (98-108); Estimated Creatinine Clearance 47.97 ml/min (50-250); Glucose 131 mg/dL (70-99); Potassium 4.0 mmol/L (3.3-5.1)
[2025-05-29 07:45] VITALS: BP 138/50; PULSE 69; RESP 16; TEMP 36.9; O2SAT 96
--- NOTE | 2025-05-29 08:06 | PCM.PN.HOSP ---
Reason for Visit Chief Complaint: Worsening upper lip wound with surrounding cellulitis Subjective Subjective Patient is a 59-year-old lady with history of diabetes mellitus type 2 who presented with swelling and redness and pain involving the right upper lip. Objective Data Objective Data Vital Signs: Vital Signs Temp Pulse Resp BP Pulse Ox O2 Del Method 98.4 F 69 16 138/50 H 96 Room Air 05/29/25 07:45 05/29/25 07:45 05/29/25 07:45 05/29/25 07:45 05/29/25 07:45 05/29/25 07:46 Oxygen Delivery Method Room Air Weight: 91.2 kg Body Mass Index (BMI) 39.2 Intake & Output: Intake and Output for Last 24 Hours 05/27/25 05/28/25 05/29/25 23:59 23:59 23:59 Intake Total 2640 / 2640 Balance 2640 / 2640 Lab / Micro Data 05/29/25 06:50 05/29/25 06:50 Labs: Laboratory Results - last 24 hr 05/28/25 09:45: WBC 6.7, RBC 4.07 L, Hgb 11.2 L, Hct 35.1 L, MCV 86.2, MCH 27.5, MCHC 31.9 L, RDW Std Deviation 46.3 H, RDW Coeff of Anisa 14.7 H, Plt Count 369, MPV 9.3, Immature Gran % (Auto) 0.300, Neut % (Auto) 61.7, Lymph % (Auto) 27.3, [place] % (Auto) 8.7, Eos % (Auto) 1.3, Baso % (Auto) 0.7, Absolute Neuts (auto) 4.1, Absolute Lymphs (auto) 1.82, Nucleated RBC % 0, Sodium 133, Potassium 4.1, Chloride 97 L, Carbon Dioxide 22.7, Anion Gap 13, BUN 25 H, Creatinine 1.43 H, Estim Creat Clear Calc 41.91 L, Est GFR (MDRD) Non-Af 42 L, BUN/Creatinine Ratio 17.7, Glucose 160 H, Lactic Acid 1.2, Calcium 8.9 05/28/25 13:06: POC Glucose 133 H 05/28/25 16:35: POC Glucose 186 H 05/28/25 22:24: POC Glucose 143 H 05/29/25 06:50: WBC 6.5, RBC 3.85 L, Hgb 10.6 L, Hct 33.4 L, MCV 86.8, MCH 27.5, MCHC 31.7 L, RDW Std Deviation 46.8 H, RDW Coeff of Anisa 14.7 H, Plt Count 371, MPV 9.3, Sodium 136, Potassium 4.0, Chloride 102, Carbon Dioxide 20.5 L, Anion Gap 14, BUN 21 H, Creatinine 1.24 H, Estim Creat Clear Calc 47.97 L, Est GFR (MDRD) Non-Af 50 L, BUN/Creatinine Ratio 16.6, Glucose 131 H, Calcium 8.6 Physical Exam Narrative GENERAL: cooperative HEENT: Significant swelling involving the right upper lip with area of erythema EYES; Anicteric, Normal Conjunctiva NECK; supple, normal thyroid, RESPIRATORY: Diminished to auscultation CARDIOVASCULAR: Regular S1 S2, GI: soft, normoactive bowel sounds, : No Renal angle tenderness; EXTREMITIES: No edema, no clubbing, MUSCULOSKELETAL: no muscle wasting NEURO: Awake; no lateralizing signs. SKIN: No Rash PSYCH; Flat affect Assessment & Plan Assessment/Plan (1) Infected lip laceration: PLAN: Plan Patient is a 59-year-old lady with history of diabetes mellitus type 2 who presented with swelling and redness and pain involving the right upper lip. 1. Right upper lip swelling with cellulitis and failed outpatient antibiotics ? Admit under inpatient status to [facility]. Presentation consistent with cellulitis secondary to lip wound due to insect bite. Poorly controlled diabetes likely contributing to development of infection. Failed outpatient p.o. clindamycin. Notably aspiration was attempted in the ED on 05/25 with no drainage noted. Patient was started on IV doxycycline and admitted to regular nursing floor. With patient having failed outpatient therapy and with multiple allergies consult was placed to ID 2. Diabetes mellitus type 2 with skin complication?right upper lip cellulitis ? Patient has history of poorly controlled diabetes mellitus type 2 with recent hemoglobin A1c of 10.5. Glucose on admission was 160. Did continue with home regimen in addition to Accu-Cheks ACHS with sliding scale coverage 3. Chronic debility ? Patient is at an ECF 4. Class II obesity with BMI of 39.3 ? Complicating care weight loss advised 5. Chronic kidney disease stage IIIb ? Kidney function at baseline 6. Hypothyroidism ? Patient is on levothyroxine home dose continued 7. GERD ? Patient on PPI 8. Mood disorder ? Patient is on citalopram and Seroquel did continue 9. History of previous VTE ? Patient is on systemic anticoagulation with apixaban 10. Hypertension ? Blood pressure controlled, home medications continued with dose adjustment as needed 11. Dyslipidemia ?Patient is on atorvastatin and fenofibrate did continue 12. DVT prophylaxis ? Already on Eliquis Time spent in the patient's overall evaluation,decision-making process, review of diagnostic data, adjustment of management, discussion with other providers, nursing nursing and ancillary staff involved in patient's care documentation, 36 Minutes Charges/Coding Visit Charges Inpatient E&M: 41470 Subs Hosp L2
[2025-05-29] MEDS: Doxycycline 100 MG in 0.9% Normal Saline (250mL Bag) 250 ML 250 MG IV (10:17)
[2025-05-29] MEDS: Insulin Glargine-YFGN 100 UNIT/ML Pen 30 UNIT SC ×2 (10:18→23:29)
--- NOTE | 2025-05-29 10:37 | PCM.CONS.GEN ---
Assessment & Plan Assessment/Plan (1) Infected lip laceration: PLAN: Reports swelling with PCN, but no issue with augmentin in past. Has h/o MRSA. Will change to vanc/unasyn and consult ENT for eval. Will follow, thank you, d/w nursing HPI Consult Data Date of Consult: 05/29/25 HPI Narrative Reason for Consultation: lip abscess HPI Narrative: SURI OCONNOR, is a 59 F who presented 05/28 to ED with 3 days progressive upper lip swelling, pain, redness, purulence. Thinks a spider bit her, had sudden onset of symptoms. No fever or chills. No h/of HSV or cold sores. Came to ED, given clinda, sx improved slightly. Admitted after coming back to ED, now on iv doxy, feeling about the same. Pain is moderate. Full ROS performed and neg except as noted above. [facility] Medical History MRSA (methicillin resistant staph aureus) culture positive Cataract (lens) fragments in eye following cataract surgery Anxiety and depression Diabetes mellitus, type 2 Pulmonary emboli Parathyroid disease History of left heart catheterization (LHC) (~05/21/22) CKD (chronic kidney disease) stage 3, GFR 30-59 ml/min Essential hypertension Orthostatic hypotension Hypothyroidism Chronic back pain Obesity (BMI 35.0-39.9 without comorbidity) Normochromic normocytic anemia Hyperlipidemia Former smoker Opiate abuse, continuous Intervertebral disc disorder with radiculopathy of lumbar region Carpal tunnel syndrome Kidney stones Thyroid disease Migraines Stomach ulcer HTN (hypertension) Home Medications ?Medication ?Instructions ?Recorded ?Last Taken ?Type rizatriptan 10 mg tablet 10 mg PO PRN Migraine Symptoms 12/27/17 04/03/24 History atorvastatin 40 mg tablet 40 mg PO QHS #30 tabs 05/21/22 06/19/24 Rx metoprolol succinate 25 mg 25 mg PO DAILY #30 tabs 05/21/22 06/18/24 Rx tablet,extended release 24 hr pantoprazole 40 mg tablet,delayed 40 mg PO DAILY 06/12/22 06/19/24 History release ranolazine 500 mg tablet,extended 500 mg PO BID #60 tabs 06/12/22 06/19/24 Rx release,12 hr acetaminophen 325 mg tablet 650 mg (2 x 325 mg) PO Q6H PRN PRN 11/24/23 06/16/24 Rx Pain 1-10 Or Fever >100.7 #0 tabs melatonin 3 mg tablet 3 mg PO QHS PRN PRN Insomnia #0 11/24/23 06/19/24 Rx tabs sennosides 8.6 mg-docusate sodium 2 tab PO BID PRN PRN Constipation 01/05/24 06/19/24 Rx 50 mg tablet (Stool #0 tabs Softener-Stimulant Laxative) loperamide 2 mg capsule 2 mg PO Q6H PRN loose stool 04/02/24 03/08/24 History (Anti-Diarrheal (loperamide)) fluticasone propionate 50 2 spray intranasal DAILY 06/20/24 06/19/24 History mcg/actuation nasal spray,suspension (Aller-Scar) nitroglycerin 0.4 mg sublingual 0.4 mg sublingual Q5M PRN chest 06/20/24 Unknown History tablet pain promethazine 25 mg tablet 25 mg PO Q6H PRN nausea and 06/20/24 Unknown History vomiting apixaban 5 mg tablet (Eliquis) 5 mg PO BID 08/19/24 Unknown History bisacodyl 10 mg rectal suppository 10 mg AR DAILY PRN constipation 08/19/24 Unknown History dulaglutide 3 mg/0.5 mL 3 mg subcut QWEEK 08/19/24 Unknown History subcutaneous pen injector (Trulicity) fenofibrate 160 mg tablet 160 mg PO DAILY 08/19/24 Unknown History insulin glargine-yfgn 100 unit/mL 48 unit subcut BID 08/19/24 Unknown History (3 mL) subcutaneous pen magnesium citrate (Citrate of 150 ml PO PRN PRN constipation 08/19/24 Unknown History Magnesia oral) magnesium hydroxide 400 mg/5 mL 30 ml PO DAILY PRN constipation 08/19/24 Unknown History oral suspension (Dulcolax (magnesium hydroxide)) ondansetron 4 mg disintegrating 4 mg PO Q8H PRN PRN Nausea #10 tabs 10/24/24 Unknown Rx tablet carboxymethylcellulose sodium 1 % 1 drp ophthalmic (eye) TID 01/30/25 Unknown History eye drops (Artificial Tears (carboxymethylcellulose)) citalopram 20 mg tablet 20 mg PO QDAY 01/30/25 Unknown History quetiapine 25 mg tablet 25 mg PO QHS 01/30/25 Unknown History levothyroxine 137 mcg tablet 137 mcg PO QDAY #90 tabs 04/26/25 Unknown Rx (Levoxyl) oxycodone-acetaminophen 5 mg-325 1 tab PO .every4 hours PRN pain 30 05/23/25 Unknown Rx mg tablet days #100 tabs clindamycin HCl 150 mg capsule 450 mg (3 x 150 mg) PO TID #90 05/26/25 Unknown Rx CAPSULES oxycodone-acetaminophen 5 mg-325 1 tab PO Q6H PRN PRN Pain 3 days 05/26/25 Unknown Rx mg tablet #12 TABLETS Allergy/AdvReac Type Severity Reaction Status Date / Time celecoxib (From Celebrex) Allergy Itching Verified 05/28/25 09:15 ciprofloxacin (From Cipro) Allergy Swelling Verified 05/28/25 09:15 ciprofloxacin HCl (From Allergy Swelling Verified 05/28/25 09:15 Cipro) codeine Allergy Hives Verified 05/28/25 09:15 ibuprofen Allergy Hives Verified 05/28/25 09:15 naproxen Allergy Hives Verified 05/28/25 09:15 Penicillins Allergy Hives Verified 05/28/25 09:15 tramadol HCl (From Ultram) Allergy Hives Verified 05/28/25 09:15 ketorolac (From Toradol) AdvReac Swelling Verified 05/28/25 09:15 Family History Mother Cancer CVA (cerebral vascular accident) Hypertension Heart disease Myocardial infarction Diabetes Father Asthma Surgical History History of cholecystectomy S/P trigger finger release H/O: hysterectomy Hx of section Social History household members: other details: currently living in a NH for therapy for chronic back pain housing: [facility] Smoking Status: Former smoker Tobacco: How many years used: 46 how long ago did patient quit smoking: Quit 09/2021, smoked 1 ppd since teen until quit. alcohol intake: never substance use type: other details: History of chronic opiate use. Denies abuse. Physical Exam Const alert, oriented x3 and no apparent distress General Appearance: cooperative HEENT normocephalic and head/scalp atraumatic HEENT Narrative: Upper lip swelling, redness, tenderness Eyes PERRL and EOMs intact bilaterally Neck supple and No nodes Resp normal air movement and clear to auscultation bilaterally Cardio regular rate and regular rhythm GI soft to palpation, non-tender and non-distended Extremity General Extremity: Negative for edema Skin Skin Narrative: no other rash Neuro CN's II-XII intact bilaterally Lab / Micro Data Attestation: I reviewed the patient's lab results. 05/29/25 06:50 05/29/25 06:50 Labs: Laboratory Results - last 24 hr 05/28/25 09:45: Sodium 133, Potassium 4.1, Chloride 97 L, Carbon Dioxide 22.7, Anion Gap 13, BUN 25 H, Creatinine 1.43 H, Estim Creat Clear Calc 41.91 L, Est GFR (MDRD) Non-Af 42 L, BUN/Creatinine Ratio 17.7, Glucose 160 H, Lactic Acid 1.2, Calcium 8.9 05/28/25 13:06: POC Glucose 133 H 05/28/25 16:35: POC Glucose 186 H 05/28/25 22:24: POC Glucose 143 H 05/29/25 06:50: WBC 6.5, RBC 3.85 L, Hgb 10.6 L, Hct 33.4 L, MCV 86.8, MCH 27.5, MCHC 31.7 L, RDW Std Deviation 46.8 H, RDW Coeff of Anisa 14.7 H, Plt Count 371, MPV 9.3, Sodium 136, Potassium 4.0, Chloride 102, Carbon Dioxide 20.5 L, Anion Gap 14, BUN 21 H, Creatinine 1.24 H, Estim Creat Clear Calc 47.97 L, Est GFR (MDRD) Non-Af 50 L, BUN/Creatinine Ratio 16.6, Glucose 131 H, Calcium 8.6
--- NOTE | 2025-05-29 11:01 | PCM.RX.CS ---
Consult Antibiotic Management Pharmacy has been consulted to manage selected antibiotic: Vancomycin Type of Intervention Type of Consult: New start Suspected Infection Suspected Infection: Skin/Soft tissue Prior Doses of Antibiotics Prior Doses of Antibiotics Received/Current Regimen: Vancomycin 2000 mg IV x 1 given 05/28/25 @ 1144 Labs Labs: Sodium 136 mmol/L (133-145) 05/29/25 06:50 Potassium 4.0 mmol/L (3.3-5.1) 05/29/25 06:50 Chloride 102 mmol/L (98-108) 05/29/25 06:50 Carbon Dioxide 20.5 mmol/L (21.0-32.0) L 05/29/25 06:50 Anion Gap 14 (5-15) 05/29/25 06:50 BUN 21 mg/dL (4-19) H 05/29/25 06:50 Creatinine 1.24 mg/dL (0.70-1.20) H 05/29/25 06:50 Est GFR (MDRD) Non-Af 50 (>60) L 05/29/25 06:50 BUN/Creatinine Ratio 16.6 RATIO (10-20) 05/29/25 06:50 Glucose 131 mg/dL (70-99) H 05/29/25 06:50 Dosing Weight Weight used for dosin kg Estimated Creatinine Clearance Estimated Creatinine Clearance: ~ 48 Goal Trough Goal Trough: 15-20 mcg/mL Pharmacy Plan for Drug Dosing Pharmacy Plan for Drug Dosing: vancomycin 2000 mg IV x 1 given 05/28/25 @ 1144, will begin with 750 mg Q12H dosing now Pharmacy Service will continue to monitor and adjust dosing as required. Follow-Up Labs Follow-Up Labs: Trough: Vancomycin Date/Time Labs Ordered Labs to be done on [date and time ordered]: 05/30/25 @ 1030
[2025-05-29] MEDS: Vancomycin HCl 750 MG in 0.9% Normal Saline (250mL Bag) 250 ML 250 MG IV ×2 (11:53→23:15)
[2025-05-29] MEDS: Ampicillin/Sulbactam 3 GM in 0.9% Normal Saline (100mL MB+) 100 ML IV ×2 (13:17→18:10)
--- NOTE | 2025-05-29 14:33 | CHAPLAIN ---
Type of Pastoral Visit _x__ Initial Visit ___ Follow-up Visit ___ On-call Visit ___ General Patient Visit ___ Spiritual Assessment ___ Family Conference ___ Bereavement ___ Rapid Response ___ Code Blue ___ Other (describe below) Pastoral Care Referral From _x__ Patient ___ Family ___ Nurse ___ Physician ___ Electroneurodiagnostic Technician ___ Technical Marketing Engineer ___ Other (describe below) Sacrament/Intervention _x__ Active listening ___ Anointing ___ Yarsani ___ Bereavement ___ Communion ___ Amanda exploration ___ ___ Life review _x__ Prayer ___ Reconciliation ___ Sacrament of Sick _x__ Supportive presence ___ Wedding ___ Other (describe below) Pastoral Comments patient is expressive about her spider bite and the accompanying pain, visits to ED, and probable course of action; pt stays in an SNF and looks to go back there; pt has at home, and grandchildren that are her delight and shola; pt welcomes presence and prayer for support today
--- NOTE | 2025-05-29 14:34 | CASEMGMT ---
Social Work- SW met with pt to discuss discharge plans. SW introduced self and role; pt agreeable to meet. Pt reports plans to return to [facility]. [facility] updated. Pt discussed events over the previous few months; SW offered support. SW remains available to follow. Plan: [place]; return to skilled level of care [facility] C[facility]
[2025-05-29 15:45] VITALS: BP 119/58; PULSE 71; RESP 16; TEMP 36.6; O2SAT 96
--- NOTE | 2025-05-29 15:59 | CASEMGMT ---
Discharge Planning Updates sent to [facility]. Rachel Bueno DC Planning Asst.
[2025-05-29 20:12] VITALS: BP 132/47; PULSE 72; RESP 15; TEMP 37.1; O2SAT 97
[2025-05-30 00:47] VITALS: BP 163/54; PULSE 74; RESP 15; TEMP 36.6; O2SAT 98
[2025-05-30] MEDS: Ampicillin/Sulbactam 3 GM in 0.9% Normal Saline (100mL MB+) 100 ML IV ×4 (00:59→18:06)
[2025-05-30 07:17] LABS: Hematocrit 34.1 % (37-47); Hemoglobin 10.7 g/dL (12.0-15.0); Immature Granulocytes Count 0.090 X10^3/uL (0.0-0.0); Mean Corp Hgb Conc 31.4 g/dL (32-36); Mean Corpuscular Volume 87.9 fL (81-99); Mean Platelet Vol. 9.2 fl (6.2-12.0); NRBC Flagged by Analyzer 0 % (0-5); Platelet Count 387 K/mm3 (150-450); RBC Distribution Width CV 14.7 % (11.6-14.6); RBC Distribution Width SD 47.3 fl (35.1-43.9); Red Blood Count 3.88 M/mm3 (4.2-5.4); White Blood Count 7.3 K/mm3 (4.4-11.0)
--- NOTE | 2025-05-30 07:35 | PCM.PN.HOSP ---
Reason for Visit Chief Complaint: Worsening upper lip wound with surrounding cellulitis Subjective Subjective Seen for complaints of leg pain. Patient was seen in consultation by Dr. Chiang with ID adjustment made to patient antibiotic therapy. Dr. Chiang recommended for ENT consultation however with no ENT coverage plan is for patient to follow-up as outpatient Objective Data Objective Data Vital Signs: Vital Signs Temp Pulse Resp BP Pulse Ox O2 Del Method 97.9 F 74 15 163/54 H 98 Room Air 05/30/25 00:47 05/30/25 00:47 05/30/25 00:47 05/30/25 00:47 05/30/25 00:47 05/30/25 06:37 Oxygen Delivery Method Room Air Weight: 91.2 kg Body Mass Index (BMI) 39.2 Intake & Output: Intake and Output for Last 24 Hours 05/28/25 05/29/25 05/30/25 23:59 23:59 23:59 Intake Total 2640 / 2640 2515.75 / 2515.75 465 / 465 Balance 2640 / 2640 2515.75 / 2515.75 465 / 465 Lab / Micro Data 05/30/25 06:53 05/29/25 06:50 Labs: Laboratory Results - last 24 hr 05/29/25 06:50: Sodium 136, Potassium 4.0, Chloride 102, Carbon Dioxide 20.5 L, Anion Gap 14, BUN 21 H, Creatinine 1.24 H, Estim Creat Clear Calc 47.97 L, Est GFR (MDRD) Non-Af 50 L, BUN/Creatinine Ratio 16.6, Glucose 131 H, Calcium 8.6 05/29/25 11:50: POC Glucose 140 H 05/29/25 16:22: POC Glucose 172 H 05/29/25 23:14: POC Glucose 213 H 05/30/25 06:53: WBC 7.3, RBC 3.88 L, Hgb 10.7 L, Hct 34.1 L, MCV 87.9, MCH 27.6, MCHC 31.4 L, RDW Std Deviation 47.3 H, RDW Coeff of Anisa 14.7 H, Plt Count 387, MPV 9.2, Immature Gran % (Auto) 1.200 H, Neut % (Auto) 55.0, Lymph % (Auto) 32.4, [place] % (Auto) 8.1, Eos % (Auto) 2.5, Baso % (Auto) 0.8, Absolute Neuts (auto) 4.0, Absolute Lymphs (auto) 2.35, Nucleated RBC % 0 Physical Exam Narrative GENERAL: cooperative HEENT: Significant swelling involving the right upper lip with area of erythema EYES; Anicteric, Normal Conjunctiva NECK; supple, normal thyroid, RESPIRATORY: Diminished to auscultation CARDIOVASCULAR: Regular S1 S2, GI: soft, normoactive bowel sounds, : No Renal angle tenderness; EXTREMITIES: No edema, no clubbing, MUSCULOSKELETAL: no muscle wasting NEURO: Awake; no lateralizing signs. SKIN: No Rash PSYCH; Flat affect Assessment & Plan Assessment/Plan (1) Infected lip laceration: PLAN: Plan Patient is a 59-year-old lady with history of diabetes mellitus type 2 who presented with swelling and redness and pain involving the right upper lip. 1. Right upper lip swelling with cellulitis and failed outpatient antibiotics ? Admit under inpatient status to [facility]. Presentation consistent with cellulitis secondary to lip wound due to insect bite. Poorly controlled diabetes likely contributing to development of infection. Failed outpatient p.o. clindamycin. Notably aspiration was attempted in the ED on 05/25 with no drainage noted. Patient was started on IV doxycycline and admitted to regular nursing floor. With patient having failed outpatient therapy and with multiple allergies consult was placed to ID ? 05/30/2025;Seen for complaints of leg pain. Patient was seen in consultation by Dr. Chiang with ID adjustment made to patient antibiotic therapy (discontinue doxycycline started patient on Unasyn and vancomycin). Dr. Chiang recommended for ENT consultation however with no ENT coverage plan is for patient to follow-up as outpatient 2. Diabetes mellitus type 2 with skin complication?right upper lip cellulitis ? Patient has history of poorly controlled diabetes mellitus type 2 with recent hemoglobin A1c of 10.5. Glucose on admission was 160. Did continue with home regimen in addition to Accu-Cheks ACHS with sliding scale coverage ? 05/30/2025; glucose control still not optimal subsequent adjustment made to patient insulin regimen 3. Chronic debility ? Patient is at an [facility] 4. Class II obesity with BMI of 39.3 ? Complicating care weight loss advised 5. Chronic kidney disease stage IIIb ? Kidney function at baseline 6. Hypothyroidism ? Patient is on levothyroxine home dose continued 7. GERD ? Patient on PPI 8. Mood disorder ? Patient is on citalopram and Seroquel did continue 9. History of previous VTE ? Patient is on systemic anticoagulation with apixaban 10. Hypertension ? Blood pressure controlled, home medications continued with dose adjustment as needed 11. Dyslipidemia ?Patient is on atorvastatin and fenofibrate did continue 12. DVT prophylaxis ? Already on Eliquis Time spent in the patient's overall evaluation,decision-making process, review of diagnostic data, adjustment of management, discussion with other providers, nursing nursing and ancillary staff involved in patient's care documentation, 35 Minutes Charges/Coding Visit Charges Inpatient E&M: 04101 Subs Hosp L2
[2025-05-30 07:51] LABS: Anion Gap 13 (5-15); BUN 18 mg/dL (4-19); BUN/Creat Ratio 15.6 RATIO (10-20); Calcium,Total 9.0 mg/dL (7.6-11.0); Carbon Dioxide 22.5 mmol/L (21.0-32.0); Chloride 101 mmol/L (98-108); Estimated Creatinine Clearance 52.64 ml/min (50-250); Glucose 165 mg/dL (70-99); Magnesium 2.2 mg/dL (1.5-2.2); Potassium 4.1 mmol/L (3.3-5.1)
[2025-05-30 08:00] VITALS: BP 156/65; PULSE 63; RESP 18; TEMP 36.6; O2SAT 99
[2025-05-30] MEDS: Insulin Glargine-YFGN 100 UNIT/ML Pen 30 UNIT SC ×2 (10:10→22:23)
[2025-05-30 10:53] LABS: Vancomycin, Trough Level 14.7 ug/mL (5.0-15.0)
--- NOTE | 2025-05-30 11:02 | PCM.RX.CS ---
Consult Antibiotic Management Pharmacy has been consulted to manage selected antibiotic: Vancomycin Type of Intervention Type of Consult: Follow-up Suspected Infection Suspected Infection: Skin/Soft tissue Prior Doses of Antibiotics Prior Doses of Antibiotics Received/Current Regimen: current dose is 750mg IV q12h Labs Labs: Sodium 137 mmol/L (133-145) 05/30/25 06:53 Potassium 4.1 mmol/L (3.3-5.1) 05/30/25 06:53 Chloride 101 mmol/L (98-108) 05/30/25 06:53 Carbon Dioxide 22.5 mmol/L (21.0-32.0) 05/30/25 06:53 Anion Gap 13 (5-15) 05/30/25 06:53 BUN 18 mg/dL (4-19) 05/30/25 06:53 Creatinine 1.13 mg/dL (0.70-1.20) 05/30/25 06:53 Est GFR (MDRD) Non-Af 55 (>60) L 05/30/25 06:53 BUN/Creatinine Ratio 15.6 RATIO (10-20) 05/30/25 06:53 Glucose 165 mg/dL (70-99) H 05/30/25 06:53 Vancomycin Trough 14.7 ug/mL (5.0-15.0) 05/30/25 10:10 Dosing Weight Weight used for dosin.2 kg Estimated Creatinine Clearance Estimated Creatinine Clearance: 53 ml/min Goal Trough Goal Trough: 15-20 mcg/mL Pharmacy Plan for Drug Dosing Pharmacy Plan for Drug Dosing: The vanc trough drawn at 10:10 today (approx 11 hours after the previous dose) was 14.7 mcg/ml. This is just slightly below goal range so recommend to keep same dose for now. It's expected the level will rise into goal range since most likely not at steady state yet. Repeat a trough in 2 days per protocol. Pharmacy Service will continue to monitor and adjust dosing as required. Follow-Up Labs Follow-Up Labs: Trough: Vancomycin Date/Time Labs Ordered Labs to be done on [date and time ordered]: 06/01/25 10:30
--- NOTE | 2025-05-30 11:19 | CASEMGMT ---
Social Work- SW collaborated with [facility]. Pt does not need precert prior to discharge. SW remains available to follow. Plan: [place]; when medically ready [facility]
[2025-05-30] MEDS: Vancomycin HCl 750 MG in 0.9% Normal Saline (250mL Bag) 250 ML 250 MG IV ×2 (11:39→22:54)
[2025-05-30] MEDS: 0.9% Normal Saline (250mL Bag) 250 ML 150 ML IV (11:52)
--- NOTE | 2025-05-30 13:32 | PCM.PN.ID ---
Physical Exam Narrative Not feeling any better, lip still hurts, no drainage, some nausea. No fever. Const alert and no apparent distress Resp normal air movement and clear to auscultation bilaterally Cardio regular rate and regular rhythm GI soft to palpation, non-tender and non-distended Skin Skin Narrative: swelling, redness, pain on upper lip ID ID: Route of nutrition/ use of supplements: [] Nutritional Intake: [] IV Site: [] Mcdaniel Catheter: [] Assessment & Plan Assessment/Plan (1) Infected lip laceration: PLAN: Reports swelling with PCN, but no issue with augmentin in past. Has h/o MRSA. Will cont vanc/unasyn. ENT not available, recommend gen surg or plastic surgery eval. Will follow
[2025-05-30 15:17] VITALS: BP 108/56; PULSE 66; RESP 18; TEMP 36.4; O2SAT 98
--- NOTE | 2025-05-30 16:55 | EX.PCM.CON.S ---
Assessment & Plan Assessment/Plan (1) History of diabetes mellitus: (2) Infected lip laceration: (3) Abscess of lip: PLAN: Plan Bedside incision and drainage performed (please see separate operative note) Keep the packing in the wound until tomorrow and I will remove on rounds Continue broad-spectrum antibiotics Follow-up cultures I took Head of bed elevated 45 degrees or greater overnight for swelling Patient happy with the plan HPI Consult Data Date of Consult: 05/30/25 HPI Narrative HPI Narrative: SURI OCONNOR is a 59 F who presents with an upper lip abscess. She reports that her upper lip pain has been developing slowly over the past 6 days after an insect bite, she reports was a brown recluse. She is currently living in a nursing facility. Today on the floor she has stable vital signs and is afebrile. Her white blood cell count is 7.3. She is currently being treated with vancomycin and Unasyn. She reports sharp severe pain in the upper lip worsened by movements and improved with rest and elevation. She has type 2 diabetes with an A1c of 10.5, but otherwise has no immunosuppression She is on Eliquis with a history of VTE She also has hypothyroidism and stage III kidney disease [facility] Medical History MRSA (methicillin resistant staph aureus) culture positive Cataract (lens) fragments in eye following cataract surgery Anxiety and depression Diabetes mellitus, type 2 Pulmonary emboli Parathyroid disease History of left heart catheterization (LHC) (~05/21/22) CKD (chronic kidney disease) stage 3, GFR 30-59 ml/min Essential hypertension Orthostatic hypotension Hypothyroidism Chronic back pain Obesity (BMI 35.0-39.9 without comorbidity) Normochromic normocytic anemia Hyperlipidemia Former smoker Opiate abuse, continuous Intervertebral disc disorder with radiculopathy of lumbar region Carpal tunnel syndrome Kidney stones Thyroid disease Migraines Stomach ulcer HTN (hypertension) Home Medications ?Medication ?Instructions ?Recorded ?Last Taken ?Type rizatriptan 10 mg tablet 10 mg PO PRN Migraine Symptoms 12/27/17 04/03/24 History atorvastatin 40 mg tablet 40 mg PO QHS #30 tabs 05/21/22 06/19/24 Rx metoprolol succinate 25 mg 25 mg PO DAILY #30 tabs 05/21/22 06/18/24 Rx tablet,extended release 24 hr pantoprazole 40 mg tablet,delayed 40 mg PO DAILY 06/12/22 06/19/24 History release ranolazine 500 mg tablet,extended 500 mg PO BID #60 tabs 06/12/22 06/19/24 Rx release,12 hr acetaminophen 325 mg tablet 650 mg (2 x 325 mg) PO Q6H PRN PRN 11/24/23 06/16/24 Rx Pain 1-10 Or Fever >100.7 #0 tabs melatonin 3 mg tablet 3 mg PO QHS PRN PRN Insomnia #0 11/24/23 06/19/24 Rx tabs sennosides 8.6 mg-docusate sodium 2 tab PO BID PRN PRN Constipation 01/05/24 06/19/24 Rx 50 mg tablet (Stool #0 tabs Softener-Stimulant Laxative) loperamide 2 mg capsule 2 mg PO Q6H PRN loose stool 04/02/24 03/08/24 History (Anti-Diarrheal (loperamide)) fluticasone propionate 50 2 spray intranasal DAILY 06/20/24 06/19/24 History mcg/actuation nasal spray,suspension (Aller-Scar) nitroglycerin 0.4 mg sublingual 0.4 mg sublingual Q5M PRN chest 06/20/24 Unknown History tablet pain promethazine 25 mg tablet 25 mg PO Q6H PRN nausea and 06/20/24 Unknown History vomiting apixaban 5 mg tablet (Eliquis) 5 mg PO BID 08/19/24 Unknown History bisacodyl 10 mg rectal suppository 10 mg [place] DAILY PRN constipation 08/19/24 Unknown History dulaglutide 3 mg/0.5 mL 3 mg subcut QWEEK 08/19/24 Unknown History subcutaneous pen injector (Trulicity) fenofibrate 160 mg tablet 160 mg PO DAILY 08/19/24 Unknown History insulin glargine-yfgn 100 unit/mL 48 unit subcut BID 08/19/24 Unknown History (3 mL) subcutaneous pen magnesium citrate (Citrate of 150 ml PO PRN PRN constipation 08/19/24 Unknown History Magnesia oral) magnesium hydroxide 400 mg/5 mL 30 ml PO DAILY PRN constipation 08/19/24 Unknown History oral suspension (Dulcolax (magnesium hydroxide)) ondansetron 4 mg disintegrating 4 mg PO Q8H PRN PRN Nausea #10 tabs 10/24/24 Unknown Rx tablet carboxymethylcellulose sodium 1 % 1 drp ophthalmic (eye) TID 01/30/25 Unknown History eye drops (Artificial Tears (carboxymethylcellulose)) citalopram 20 mg tablet 20 mg PO QDAY 01/30/25 Unknown History quetiapine 25 mg tablet 25 mg PO QHS 01/30/25 Unknown History levothyroxine 137 mcg tablet 137 mcg PO QDAY #90 tabs 04/26/25 Unknown Rx (Levoxyl) oxycodone-acetaminophen 5 mg-325 1 tab PO .every4 hours PRN pain 30 05/23/25 Unknown Rx mg tablet days #100 tabs clindamycin HCl 150 mg capsule 450 mg (3 x 150 mg) PO TID #90 05/26/25 Unknown Rx CAPSULES oxycodone-acetaminophen 5 mg-325 1 tab PO Q6H PRN PRN Pain 3 days 05/26/25 Unknown Rx mg tablet #12 TABLETS Allergy/AdvReac Type Severity Reaction Status Date / Time celecoxib (From Celebrex) Allergy Itching Verified 05/28/25 09:15 ciprofloxacin (From Cipro) Allergy Swelling Verified 05/28/25 09:15 ciprofloxacin HCl (From Allergy Swelling Verified 05/28/25 09:15 Cipro) codeine Allergy Hives Verified 05/28/25 09:15 ibuprofen Allergy Hives Verified 05/28/25 09:15 naproxen Allergy Hives Verified 05/28/25 09:15 Penicillins Allergy Hives Verified 05/28/25 09:15 tramadol HCl (From Ultram) Allergy Hives Verified 05/28/25 09:15 ketorolac (From Toradol) AdvReac Swelling Verified 05/28/25 09:15 Family History Mother Cancer CVA (cerebral vascular accident) Hypertension Heart disease Myocardial infarction Diabetes Father Asthma Surgical History History of cholecystectomy S/P trigger finger release H/O: hysterectomy Hx of section Social History household members: other details: currently living in a NH for therapy for chronic back pain housing: long-term Smoking Status: Former smoker Tobacco: How many years used: 46 how long ago did patient quit smoking: Quit 09/2021, smoked 1 ppd since teen until quit. alcohol intake: never substance use type: other details: History of chronic opiate use. Denies abuse. Physical Exam Narrative No obvious dental abscess Upper lip with a fluctuant central right area, with surrounding induration. There is a pinhole over the wound that developing into a draining sinus. The area is exquisitely tender. Lab / Micro Data 05/30/25 06:53 05/30/25 06:53 Labs: Laboratory Results - last 24 hr 05/29/25 23:14: POC Glucose 213 H 05/30/25 06:53: WBC 7.3, RBC 3.88 L, Hgb 10.7 L, Hct 34.1 L, MCV 87.9, MCH 27.6, MCHC 31.4 L, RDW Std Deviation 47.3 H, RDW Coeff of Anisa 14.7 H, Plt Count 387, MPV 9.2, Immature Gran % (Auto) 1.200 H, Neut % (Auto) 55.0, Lymph % (Auto) 32.4, [place] % (Auto) 8.1, Eos % (Auto) 2.5, Baso % (Auto) 0.8, Absolute Neuts (auto) 4.0, Absolute Lymphs (auto) 2.35, Nucleated RBC % 0, Sodium 137, Potassium 4.1, Chloride 101, Carbon Dioxide 22.5, Anion Gap 13, BUN 18, Creatinine 1.13, Estim Creat Clear Calc 52.64, Est GFR (MDRD) Non-Af 55 L, BUN/Creatinine Ratio 15.6, Glucose 165 H, Calcium 9.0, Phosphorus 3.6, Magnesium 2.2 05/30/25 07:33: POC Glucose 152 H 05/30/25 10:10: Vancomycin Trough 14.7 05/30/25 11:45: POC Glucose 183 H Micro: Microbiology 05/28/25 09:45 Blood Culture (Wb) - Anticubital Left Blood Culture - Preliminary No growth in 48 hours. 05/28/25 09:49 Blood Culture (Wb) - Arm Right Blood Culture - Preliminary No growth in 48 hours. Charges/Coding Multi Select Codes Visit Charges Office Visit/Consults: 51644 IP Consult L3
--- NOTE | 2025-05-30 17:03 | PCM.OPRPT ---
Operative Report (Standard) Operative Information Date of Procedure: 05/30/25 Pre-Operative Diagnosis: Upper lip abscess Post-Operative Diagnosis: Same Surgery/Procedure Performed: 1) incision and drainage upper lip abscess hammersmith helper: No Type of Anesthesia: Local (3 cc of 1% lidocaine with 1-200,000 epinephrine) Procedure Start Time: 04:45 Procedure Stop Time: 04:50 Select all DRAINS/GRAFTS/IMPLANTS that apply: None Estimated Blood Loss: Minimal Specimen collected: Yes Description of specimen(s) removed: Culture swabs Description of surgery: Indications: Patient is a delightful 59-year-old female with an area of fluctuance on her right upper lip. I talked her about incision and drainage and we discussed the risks, including poor scarring, with the incision and drainage, as well as damage to surrounding structures, need for repeat operations, worsening of infection, pain, and need for postoperative wound care (with possible wound healing issues). She agreed to proceed and signed her consent. A timeout was performed. Procedure details: Area was prepped and draped with Betadine and she was anesthetized as noted above. The local was given time to take effect. An 11 blade scalpel was used to make a vertical incision on the upper lip over the area of fluctuance. Hemostat was used to enter the cavity and spread laterally and medially into the pockets of purulence and to break up the loculations within the subcutaneous pockets of the lip. The wound was then cultured with anaerobic and aerobic swabs. The wound was irrigated with copious amounts normal saline and then packed with iodoform gauze. She tolerated the procedure well. Postoperative plan: Head of bed elevated 45 degrees or greater. Plan to remove packing in the morning. Continue broad-spectrum antibiotics and follow-up culture data Surgical Findings: Purulence in the right upper lip with loculations Complications Complications: No
[2025-05-30 19:34] VITALS: BP 148/59; PULSE 69; RESP 18; TEMP 37.2; O2SAT 95
[2025-05-30] MEDS: 0.9% Saline Lock 10 ML Syringe IV (19:36)
[2025-05-30 22:12] VITALS: BP 150/56; PULSE 76; RESP 16; TEMP 36.9; O2SAT 95
[2025-05-31] MEDS: Ampicillin/Sulbactam 3 GM in 0.9% Normal Saline (100mL MB+) 100 ML IV ×2 (00:33→06:22)
[2025-05-31 02:04] VITALS: BP 138/71; PULSE 81; RESP 16; TEMP 36.7; O2SAT 97
[2025-05-31] MEDS: 0.9% Saline Lock 10 ML Syringe IV ×3 (02:06→14:38)
--- NOTE | 2025-05-31 06:54 | PCM.PN.HOSP ---
Reason for Visit Chief Complaint: Worsening upper lip wound with surrounding cellulitis Subjective Subjective Patient underwent incision and drainage upper lip absces on 05/31/[address] Whatley cultures sent. Swelling involving the left significantly decreased. Objective Data Objective Data Vital Signs: Vital Signs Temp Pulse Resp BP Pulse Ox O2 Del Method 98.1 F 81 16 138/71 H 97 Room Air 05/31/25 02:04 05/31/25 02:04 05/31/25 02:04 05/31/25 02:04 05/31/25 02:04 05/31/25 02:10 Oxygen Delivery Method Room Air Weight: 91.2 kg Body Mass Index (BMI) 39.2 Intake & Output: Intake and Output for Last 24 Hours 05/29/25 05/30/25 05/31/25 23:59 23:59 23:59 Intake Total 2515.75 / 2515.75 1236.75 / 1236.75 100 / 100 Output Total 350 / 350 Balance 2515.75 / 2515.75 1236.75 / 886.75 -250 / -250 Lab / Micro Data 05/31/25 06:43 05/31/25 06:43 Labs: Laboratory Results - last 24 hr 05/30/25 06:53: WBC 7.3, RBC 3.88 L, Hgb 10.7 L, Hct 34.1 L, MCV 87.9, MCH 27.6, MCHC 31.4 L, RDW Std Deviation 47.3 H, RDW Coeff of Anisa 14.7 H, Plt Count 387, MPV 9.2, Immature Gran % (Auto) 1.200 H, Neut % (Auto) 55.0, Lymph % (Auto) 32.4, [place] % (Auto) 8.1, Eos % (Auto) 2.5, Baso % (Auto) 0.8, Absolute Neuts (auto) 4.0, Absolute Lymphs (auto) 2.35, Nucleated RBC % 0, Sodium 137, Potassium 4.1, Chloride 101, Carbon Dioxide 22.5, Anion Gap 13, BUN 18, Creatinine 1.13, Estim Creat Clear Calc 52.64, Est GFR (MDRD) Non-Af 55 L, BUN/Creatinine Ratio 15.6, Glucose 165 H, Calcium 9.0, Phosphorus 3.6, Magnesium 2.2 05/30/25 07:33: POC Glucose 152 H 05/30/25 10:10: Vancomycin Trough 14.7 05/30/25 11:45: POC Glucose 183 H 05/30/25 17:01: POC Glucose 181 H 05/30/25 22:21: POC Glucose 175 H Micro: Microbiology 05/28/25 09:45 Blood Culture (Wb) - Anticubital Left Blood Culture - Preliminary No growth in 48 hours. 05/28/25 09:49 Blood Culture (Wb) - Arm Right Blood Culture - Preliminary No growth in 48 hours. Physical Exam Narrative GENERAL: cooperative HEENT: Significant swelling involving the right upper lip with area of erythema EYES; Anicteric, Normal Conjunctiva NECK; supple, normal thyroid, RESPIRATORY: Diminished to auscultation CARDIOVASCULAR: Regular S1 S2, GI: soft, normoactive bowel sounds, : No Renal angle tenderness; EXTREMITIES: No edema, no clubbing, MUSCULOSKELETAL: no muscle wasting NEURO: Awake; no lateralizing signs. SKIN: No Rash PSYCH; Flat affect Assessment & Plan Assessment/Plan (1) Infected lip laceration: PLAN: Plan Patient is a 59-year-old lady with history of diabetes mellitus type 2 who presented with swelling and redness and pain involving the right upper lip. 1. Right upper lip swelling with cellulitis and failed outpatient antibiotics ? Admit under inpatient status to [facility]. Presentation consistent with cellulitis secondary to lip wound due to insect bite. Poorly controlled diabetes likely contributing to development of infection. Failed outpatient p.o. clindamycin. Notably aspiration was attempted in the ED on 05/25 with no drainage noted. Patient was started on IV doxycycline and admitted to regular nursing floor. With patient having failed outpatient therapy and with multiple allergies consult was placed to ID ? 05/30/2025;Seen for complaints of leg pain. Patient was seen in consultation by Dr. Chiang with ID adjustment made to patient antibiotic therapy (discontinue doxycycline started patient on Unasyn and vancomycin). Dr. Chiang recommended for ENT consultation however with no ENT coverage plan is for patient to follow-up as outpatient ? 05/31/2025;Patient underwent incision and drainage upper lip absces on 05/31/[address] Whatley cultures sent, swelling involving the lip significantly decreased 2. Diabetes mellitus type 2 with skin complication?right upper lip cellulitis ? Patient has history of poorly controlled diabetes mellitus type 2 with recent hemoglobin A1c of 10.5. Glucose on admission was 160. Did continue with home regimen in addition to Accu-Cheks ACHS with sliding scale coverage ? 05/30/2025; glucose control still not optimal subsequent adjustment made to patient insulin regimen 3. Chronic debility ? Patient is at an [facility] 4. Class II obesity with BMI of 39.3 ? Complicating care weight loss advised 5. Chronic kidney disease stage IIIb ? Kidney function at baseline 6. Hypothyroidism ? Patient is on levothyroxine home dose continued 7. GERD ? Patient on PPI 8. Mood disorder ? Patient is on citalopram and Seroquel did continue 9. History of previous VTE ? Patient is on systemic anticoagulation with apixaban 10. Hypertension ? Blood pressure controlled, home medications continued with dose adjustment as needed 11. Dyslipidemia ?Patient is on atorvastatin and fenofibrate did continue 12. DVT prophylaxis ? Already on Eliquis 13. Anemia ? Secondary to chronic disorder monitoring H&H and transfuse if patient becomes symptomatic or hemoglobin falls below 7 14. Physical deconditioning ? Requested for PT OT eval and social services manager to assist with discharge planning Time spent in the patient's overall evaluation,decision-making process, review of diagnostic data, adjustment of management, discussion with other providers, nursing nursing and ancillary staff involved in patient's care documentation, 38 Minutes Charges/Coding Visit Charges Inpatient E&M: 55048 Subs Hosp L2
[2025-05-31 07:20] LABS: Hematocrit 33.5 % (37-47); Hemoglobin 10.4 g/dL (12.0-15.0); Immature Granulocytes Count 0.100 X10^3/uL (0.0-0.0); Mean Corp Hgb Conc 31.0 g/dL (32-36); Mean Corpuscular Volume 87.9 fL (81-99); Mean Platelet Vol. 9.3 fl (6.2-12.0); NRBC Flagged by Analyzer 0 % (0-5); Platelet Count 388 K/mm3 (150-450); RBC Distribution Width CV 14.9 % (11.6-14.6); RBC Distribution Width SD 48.0 fl (35.1-43.9); Red Blood Count 3.81 M/mm3 (4.2-5.4); White Blood Count 7.3 K/mm3 (4.4-11.0)
[2025-05-31 07:44] LABS: Anion Gap 13 (5-15); BUN 19 mg/dL (4-19); BUN/Creat Ratio 15.5 RATIO (10-20); Calcium,Total 8.8 mg/dL (7.6-11.0); Carbon Dioxide 21.9 mmol/L (21.0-32.0); Chloride 102 mmol/L (98-108); Estimated Creatinine Clearance 48.76 ml/min (50-250); Glucose 204 mg/dL (70-99); Potassium 4.0 mmol/L (3.3-5.1)
[2025-05-31] MEDS: Insulin Glargine-YFGN 100 UNIT/ML Pen 30 UNIT SC ×2 (08:12→22:58)
[2025-05-31 08:14] VITALS: BP 116/41; PULSE 64; RESP 18; TEMP 36.4; O2SAT 95
--- NOTE | 2025-05-31 08:36 | PCM.PN.SRG ---
Subjective Subjective Pain improved today. No drainage from the lip overnight. Stayed with head of bed elevated Objective Data Objective Data Vital Signs: Vital Signs Temp Pulse Resp BP Pulse Ox O2 Del Method 97.6 F L 64 18 116/41 L 95 Room Air 05/31/25 08:14 05/31/25 08:14 05/31/25 08:14 05/31/25 08:14 05/31/25 08:14 05/31/25 08:16 Oxygen Delivery Method Room Air Weight: 201 lb 0.985 oz Body Mass Index (BMI) 39.2 Intake & Output: Intake and Output for Last 24 Hours 05/29/25 05/30/25 05/31/25 23:59 23:59 23:59 Intake Total 2515.75 / 2515.75 1236.75 / 1236.75 200 / 200 Output Total 350 / 350 Balance 2515.75 / 2515.75 1236.75 / 886.75 -150 / -150 Lab / Micro Data Attestation: I reviewed the patient's lab results. (Sugars elevated/labile overnight. ) 05/31/25 06:43 05/31/25 06:43 Labs: Laboratory Results - last 24 hr 05/30/25 10:10: Vancomycin Trough 14.7 05/30/25 11:45: POC Glucose 183 H 05/30/25 17:01: POC Glucose 181 H 05/30/25 22:21: POC Glucose 175 H 05/31/25 06:43: WBC 7.3, RBC 3.81 L, Hgb 10.4 L, Hct 33.5 L, MCV 87.9, MCH 27.3, MCHC 31.0 L, RDW Std Deviation 48.0 H, RDW Coeff of Anisa 14.9 H, Plt Count 388, MPV 9.3, Immature Gran % (Auto) 1.400 H, Neut % (Auto) 52.9, Lymph % (Auto) 34.8, [place] % (Auto) 7.6, Eos % (Auto) 2.5, Baso % (Auto) 0.8, Absolute Neuts (auto) 3.9, Absolute Lymphs (auto) 2.53, Nucleated RBC % 0, Sodium 137, Potassium 4.0, Chloride 102, Carbon Dioxide 21.9, Anion Gap 13, BUN 19, Creatinine 1.22 H, Estim Creat Clear Calc 48.76 L, Est GFR (MDRD) Non-Af 50 L, BUN/Creatinine Ratio 15.5, Glucose 204 H, Calcium 8.8 Micro: Microbiology 05/28/25 09:45 Blood Culture (Wb) - Anticubital Left Blood Culture - Preliminary No growth in 48 hours. 05/28/25 09:49 Blood Culture (Wb) - Arm Right Blood Culture - Preliminary No growth in 48 hours. Physical Exam Narrative Lip packing removed (not replaced) No purulence. Swelling decreased. Infection improving. Assessment & Plan Assessment/Plan (1) Abscess of lip: PLAN: Continued HOB elevation Agree with IV antibiotics, continued to f/u cultures No need for packing changes at this point PSU will follow Should remain in house today and until cultures finalize OK to continued blood thinner as usual (no need to hold from PSU standpoint) Charges/Coding Procedures Integumentary [id number]: [id number] Global Visit
[2025-05-31] MEDS: 0.9% Normal Saline (250mL Bag) 250 ML 15 ML IV (09:02)
--- NOTE | 2025-05-31 10:57 | PCM.PN.ID ---
Physical Exam Narrative Some nausea, but overall feeling better s/p I&D yesterday. No fever. Const alert and no apparent distress Resp normal air movement and clear to auscultation bilaterally Cardio regular rate and regular rhythm GI soft to palpation, non-tender and non-distended Skin Skin Narrative: lip less swollen ID ID: Route of nutrition/ use of supplements: [] Nutritional Intake: [] IV Site: [] Mcdaniel Catheter: [] Assessment & Plan Assessment/Plan (1) Infected lip laceration: PLAN: Reports swelling with PCN, but no issue with augmentin in past. Has h/o MRSA. Will cont vanc/unasyn. Now s/p I&D by Dr. Whatley 05/30/25. Will follow
[2025-05-31] MEDS: Vancomycin HCl 750 MG in 0.9% Normal Saline (250mL Bag) 250 ML 250 MG IV ×2 (11:24→23:04)
--- NOTE | 2025-05-31 11:44 | CASEMGMT ---
Discharge Planning Updates sent to [facility]. Rachel Bueno DC Planning Asst.
--- NOTE | 2025-05-31 12:24 | CASEMGMT ---
Social Work- SW received notice that cultures pending; pt will remain until cultures resulted. DCA notified that pt will not d/c at this time. Pt updated. IRIS Cabezas
[2025-05-31 14:04] VITALS: BP 113/50; PULSE 65; RESP 18; TEMP 36.5; O2SAT 96
[2025-05-31 19:59] VITALS: BP 137/61; PULSE 74; RESP 16; TEMP 36.7; O2SAT 99
[2025-06-01 02:14] VITALS: BP 133/76; PULSE 64; RESP 16; TEMP 36.9; O2SAT 97
[2025-06-01] MEDS: 0.9% Saline Lock 10 ML Syringe IV ×2 (02:18→10:26)
--- NOTE | 2025-06-01 07:15 | PCM.PN.HOSP ---
Reason for Visit Chief Complaint: Worsening upper lip wound with surrounding cellulitis Subjective Subjective Patient wound cultures so far positive for Staphylococcus aureus. Final identification and sensitivities pending Objective Data Objective Data Vital Signs: Vital Signs Temp Pulse Resp BP Pulse Ox O2 Del Method 98.5 F 64 16 133/76 H 97 Room Air 06/01/25 02:14 06/01/25 02:14 06/01/25 02:14 06/01/25 02:14 06/01/25 02:14 06/01/25 02:23 Oxygen Delivery Method Room Air Weight: 91.2 kg Body Mass Index (BMI) 39.2 Intake & Output: Intake and Output for Last 24 Hours 05/30/25 05/31/25 06/01/25 23:59 23:59 23:59 Intake Total 1236.75 / 1236.75 855.75 / 855.75 265 / 265 Output Total 350 / 350 Balance 1236.75 / 886.75 505.75 / 505.75 265 / 265 Lab / Micro Data 06/01/25 07:29 05/31/25 06:43 Labs: Laboratory Results - last 24 hr 05/31/25 06:43: WBC 7.3, RBC 3.81 L, Hgb 10.4 L, Hct 33.5 L, MCV 87.9, MCH 27.3, MCHC 31.0 L, RDW Std Deviation 48.0 H, RDW Coeff of Anisa 14.9 H, Plt Count 388, MPV 9.3, Immature Gran % (Auto) 1.400 H, Neut % (Auto) 52.9, Lymph % (Auto) 34.8, [place] % (Auto) 7.6, Eos % (Auto) 2.5, Baso % (Auto) 0.8, Absolute Neuts (auto) 3.9, Absolute Lymphs (auto) 2.53, Nucleated RBC % 0, Sodium 137, Potassium 4.0, Chloride 102, Carbon Dioxide 21.9, Anion Gap 13, BUN 19, Creatinine 1.22 H, Estim Creat Clear Calc 48.76 L, Est GFR (MDRD) Non-Af 50 L, BUN/Creatinine Ratio 15.5, Glucose 204 H, Calcium 8.8 05/31/25 08:09: POC Glucose 202 H 05/31/25 11:20: POC Glucose 154 H 05/31/25 16:34: POC Glucose 149 H 05/31/25 22:58: POC Glucose 176 H Micro: Microbiology 05/30/25 17:00 Insect Bite Gram Stain - Final 05/30/25 17:00 Insect Bite Wound Culture - Preliminary Staphylococcus aureus 05/28/25 09:45 Blood Culture (Wb) - Anticubital Left Blood Culture - Preliminary No growth in 48 hours. 05/28/25 09:49 Blood Culture (Wb) - Arm Right Blood Culture - Preliminary No growth in 48 hours. Physical Exam Narrative GENERAL: cooperative HEENT: Swelling involving the right upper lip significantly decreased EYES; Anicteric, Normal Conjunctiva NECK; supple, normal thyroid, RESPIRATORY: Diminished to auscultation CARDIOVASCULAR: Regular S1 S2, GI: soft, normoactive bowel sounds, : No Renal angle tenderness; EXTREMITIES: No edema, no clubbing, MUSCULOSKELETAL: no muscle wasting NEURO: Awake; no lateralizing signs. SKIN: No Rash PSYCH; Flat affect Assessment & Plan Assessment/Plan (1) Infected lip laceration: PLAN: Plan Patient is a 59-year-old lady with history of diabetes mellitus type 2 who presented with swelling and redness and pain involving the right upper lip. 1. Right upper lip swelling with cellulitis and failed outpatient antibiotics ? Admit under inpatient status to [facility]. Presentation consistent with cellulitis secondary to lip wound due to insect bite. Poorly controlled diabetes likely contributing to development of infection. Failed outpatient p.o. clindamycin. Notably aspiration was attempted in the ED on 05/25 with no drainage noted. Patient was started on IV doxycycline and admitted to regular nursing floor. With patient having failed outpatient therapy and with multiple allergies consult was placed to ID ? 05/30/2025;Seen for complaints of leg pain. Patient was seen in consultation by Dr. Chiang with ID adjustment made to patient antibiotic therapy (discontinue doxycycline started patient on Unasyn and vancomycin). Dr. Chiang recommended for ENT consultation however with no ENT coverage plan is for patient to follow-up as outpatient ? 05/31/2025;Patient underwent incision and drainage upper lip absces on 05/31/[address] Whatley cultures sent, swelling involving the lip significantly decreased. ? 06/01/2025;Patient wound cultures so far positive for Staphylococcus aureus. Final identification and sensitivities pending 2. Diabetes mellitus type 2 with skin complication?right upper lip cellulitis ? Patient has history of poorly controlled diabetes mellitus type 2 with recent hemoglobin A1c of 10.5. Glucose on admission was 160. Did continue with home regimen in addition to Accu-Cheks ACHS with sliding scale coverage ? 05/30/2025; glucose control still not optimal subsequent adjustment made to patient insulin regimen 3. Chronic debility ? Patient is at an [facility] 4. Class II obesity with BMI of 39.3 ? Complicating care weight loss advised 5. Chronic kidney disease stage IIIb ? Kidney function at baseline 6. Hypothyroidism ? Patient is on levothyroxine home dose continued 7. GERD ? Patient on PPI 8. Mood disorder ? Patient is on citalopram and Seroquel did continue 9. History of previous VTE ? Patient is on systemic anticoagulation with apixaban 10. Hypertension ? Blood pressure controlled, home medications continued with dose adjustment as needed 11. Dyslipidemia ?Patient is on atorvastatin and fenofibrate did continue 12. DVT prophylaxis ? Already on Eliquis 13. Anemia ? Secondary to chronic disorder monitoring H&H and transfuse if patient becomes symptomatic or hemoglobin falls below 7 14. Physical deconditioning ? Requested for PT OT eval and social services coordinator to assist with discharge planning Time spent in the patient's overall evaluation,decision-making process, review of diagnostic data, adjustment of management, discussion with other providers, nursing nursing and ancillary staff involved in patient's care documentation, 35 Minutes Charges/Coding Visit Charges Inpatient E&M: 23903 Subs Hosp L2
[2025-06-01 08:00] LABS: Hematocrit 34.7 % (37-47); Hemoglobin 10.7 g/dL (12.0-15.0); Immature Granulocytes Count 0.100 X10^3/uL (0.0-0.0); Mean Corp Hgb Conc 30.8 g/dL (32-36); Mean Corpuscular Volume 88.7 fL (81-99); Mean Platelet Vol. 9.3 fl (6.2-12.0); NRBC Flagged by Analyzer 0 % (0-5); Platelet Count 384 K/mm3 (150-450); RBC Distribution Width CV 15.0 % (11.6-14.6); RBC Distribution Width SD 48.1 fl (35.1-43.9); Red Blood Count 3.91 M/mm3 (4.2-5.4); White Blood Count 7.3 K/mm3 (4.4-11.0)
--- NOTE | 2025-06-01 08:00 | PCM.PN.SRG ---
Subjective Subjective Doing well. Reports improved pain. Objective Data Objective Data Vital Signs: Vital Signs Temp Pulse Resp BP Pulse Ox O2 Del Method 98.5 F 64 16 133/76 H 97 Room Air 06/01/25 02:14 06/01/25 02:14 06/01/25 02:14 06/01/25 02:14 06/01/25 02:14 06/01/25 02:23 Oxygen Delivery Method Room Air Weight: 201 lb 0.985 oz Body Mass Index (BMI) 39.2 Intake & Output: Intake and Output for Last 24 Hours 05/30/25 05/31/25 06/01/25 23:59 23:59 23:59 Intake Total 1236.75 / 1236.75 855.75 / 855.75 265 / 265 Output Total 350 / 350 Balance 1236.75 / 886.75 505.75 / 505.75 265 / 265 Lab / Micro Data 06/01/25 07:29 05/31/25 06:43 Labs: Laboratory Results - last 24 hr 05/31/25 08:09: POC Glucose 202 H 05/31/25 11:20: POC Glucose 154 H 05/31/25 16:34: POC Glucose 149 H 05/31/25 22:58: POC Glucose 176 H Micro: Microbiology 05/30/25 17:00 Insect Bite Gram Stain - Final 05/30/25 17:00 Insect Bite Wound Culture - Preliminary Staphylococcus aureus 05/28/25 09:45 Blood Culture (Wb) - Anticubital Left Blood Culture - Preliminary No growth in 48 hours. 05/28/25 09:49 Blood Culture (Wb) - Arm Right Blood Culture - Preliminary No growth in 48 hours. Physical Exam Narrative No purulence. Swelling decreased. Infection improving. Able to move lips completely and purse the lips Assessment & Plan Assessment/Plan (1) Abscess of lip: (2) Infected lip laceration: PLAN: Plan Vast improvement Continue IV antibiotic Staph aureus thus far OK for DC from PSU standpoint once cultures finalize and ID gives final recommendations Plan for f/u next week in clinic Charges/Coding Procedures Integumentary [id number]: [id number] Global Visit
[2025-06-01 08:56] VITALS: BP 114/49; PULSE 63; RESP 18; TEMP 36.4; O2SAT 96
[2025-06-01 09:19] LABS: Anion Gap 11 (5-15); BUN 21 mg/dL (4-19); BUN/Creat Ratio 17.9 RATIO (10-20); Calcium,Total 9.1 mg/dL (7.6-11.0); Carbon Dioxide 22.5 mmol/L (21.0-32.0); Chloride 101 mmol/L (98-108); Estimated Creatinine Clearance 51.28 ml/min (50-250); Glucose 181 mg/dL (70-99); Potassium 4.1 mmol/L (3.3-5.1)
--- NOTE | 2025-06-01 10:17 | PCM.PN.ID ---
Physical Exam Narrative Feeling better, some nausea. Lip less sore overall. Const alert and no apparent distress General Appearance: cooperative Resp normal air movement and clear to auscultation bilaterally Cardio regular rate and regular rhythm GI soft to palpation, non-tender and non-distended Skin Skin Narrative: Upper lip less red and swollen ID ID: Route of nutrition/ use of supplements: [] Nutritional Intake: [] IV Site: [] Mcdaniel Catheter: [] Assessment & Plan Assessment/Plan (1) Infected lip laceration: PLAN: Reports swelling with PCN, but no issue with augmentin in past. Has h/o MRSA. Wound cx now with MRSA. Will cont vanc, stop unasyn. Now s/p I&D by Dr. Whatley 05/30/25. Plan on home with one week po doxy 100mg bid. Will follow
[2025-06-01] MEDS: Insulin Glargine-YFGN 100 UNIT/ML Pen 30 UNIT SC (10:26)
[2025-06-01 11:39] LABS: Vancomycin, Trough Level 17.6 ug/mL (5.0-15.0)
--- NOTE | 2025-06-01 11:45 | PCM.RX.CS ---
Consult Antibiotic Management Pharmacy has been consulted to manage selected antibiotic: Vancomycin Type of Intervention Type of Consult: Follow-up Suspected Infection Suspected Infection: Skin/Soft tissue Prior Doses of Antibiotics Prior Doses of Antibiotics Received/Current Regimen: Vancomycin 750 mg Q12H last given 05/31/25 @ 2304 Labs Labs: Sodium 135 mmol/L (133-145) 06/01/25 07:29 Potassium 4.1 mmol/L (3.3-5.1) 06/01/25 07:29 Chloride 101 mmol/L (98-108) 06/01/25 07:29 Carbon Dioxide 22.5 mmol/L (21.0-32.0) 06/01/25 07:29 Anion Gap 11 (5-15) 06/01/25 07:29 BUN 21 mg/dL (4-19) H 06/01/25 07:29 Creatinine 1.16 mg/dL (0.70-1.20) 06/01/25 07:29 Est GFR (MDRD) Non-Af 54 (>60) L 06/01/25 07:29 BUN/Creatinine Ratio 17.9 RATIO (10-20) 06/01/25 07:29 Glucose 181 mg/dL (70-99) H 06/01/25 07:29 Vancomycin Trough 17.6 ug/mL (5.0-15.0) H 06/01/25 10:20 Microbiology Microbiology: Microbiology 05/30/25 17:00 Insect Bite Gram Stain - Final 05/30/25 17:00 Insect Bite Wound Culture - Final Meth. resistant Staph. aureus 05/28/25 09:45 Blood Culture (Wb) - Anticubital Left Blood Culture - Preliminary No growth in 48 hours. 05/28/25 09:49 Blood Culture (Wb) - Arm Right Blood Culture - Preliminary No growth in 48 hours. Dosing Weight Weight used for dosin kg Estimated Creatinine Clearance Estimated Creatinine Clearance: ~ 51 Goal Trough Goal Trough: 15-20 mcg/mL Pharmacy Plan for Drug Dosing Pharmacy Plan for Drug Dosing: Vancomycin trough = 17.6, continue current dosing, trough in 2 days. Pharmacy Service will continue to monitor and adjust dosing as required. Follow-Up Labs Follow-Up Labs: Trough: Vancomycin Date/Time Labs Ordered Labs to be done on [date and time ordered]: 06/03/25 @ 1030
--- NOTE | 2025-06-01 12:13 | TREXTCAR_ITS ---
Diet Diet Order/Speech Therapy: INPATIENT Hospital Diet / Speech Therapy Order(s) 05/28/25 12:36 Diet: Consistent Carb - Calorie Controlled Food consistency:: Regular Liquid Consistency:: Regular/Thin Dietary Modifications:: Cardiac / Heart Healthy How many daily calories?: 1600 calorie Routine Orders/Code Status Code Status: Full Code DC O2, CPAP, BIPAP needs Home O2 Discharge instructions: No Wound(s) upper lip: Wound Type: Bite Problem/Diagnosis (1) Infected lip laceration: Status: Acute Code(s): S01.511A - Laceration without foreign body of lip, initial encounter; L08.9 - Local infection of the skin and subcutaneous tissue, unspecified Plan Patient is a 59-year-old lady with history of diabetes mellitus type 2 who presented with swelling and redness and pain involving the right upper lip. 1. Right upper lip swelling with cellulitis and failed outpatient antibiotics ? Admit under inpatient status to [facility]. Presentation consistent with cellulitis secondary to lip wound due to insect bite. Poorly controlled diabetes likely contributing to development of infection. Failed outpatient p.o. clindamycin. Notably aspiration was attempted in the ED on 05/25 with no satya inage noted. Patient was started on IV doxycycline and admitted to regular nursing floor. With patient having failed outpatient therapy and with multiple allergies consult was placed to ID ? 05/30/2025;Seen for complaints of leg pain. Patient was seen in consultation by Dr. Chiang with ID adjustment made to patient antibiotic therapy (discontinue doxycycline started patient on Unasyn and vancomycin). Dr. Chiang recommended for ENT consultation however with no ENT coverage plan is for patient to follow-up as outpatient ? 05/31/2025;Patient underwent incision and drainage upper lip absces on 05/31/[address] Whatley cultures sent, swelling involving the lip significantly decreased. ? 06/01/2025;Patient wound cultures so far positive for Staphylococcus aureus. Final identification and sensitivities pending 2. Diabetes mellitus type 2 with skin complication?right upper lip cellulitis ? Patient has history of poorly controlled diabetes mellitus type 2 with recent hemoglobin A1c of 10.5. Glucose on admission was 160. Did continue with home regimen in addition to Accu-Cheks ACHS with sliding scale coverage ? 05/30/2025; glucose control still not optimal subsequent adjustment made to p atient insulin regimen 3. Chronic debility ? Patient is at an ECF 4. Class II obesity with BMI of 39.3 ? Complicating care weight loss advised 5. Chronic kidney disease stage IIIb ? Kidney function at baseline 6. Hypothyroidism ? Patient is on levothyroxine home dose continued 7. GERD ? Patient on PPI 8. Mood disorder ? Patient is on citalopram and Seroquel did continue 9. History of previous VTE ? Patient is on systemic anticoagulation with apixaban 10. Hypertension ? Blood pressure controlled, home medications continued with dose adjustment as needed 11. Dyslipidemia ?Patient is on atorvastatin and fenofibrate did continue 12. DVT prophylaxis ? Already on Eliquis 13. Anemia ? Secondary to chronic disorder monitoring H&H and transfuse if patient becomes symptomatic or hemoglobin falls below 7 14. Physical deconditioning ? Requested for PT OT eval and licensed master social worker to assist with discharge planning Time spent in the patient's overall evaluation,decision-making process, review of diagnostic data, adjustment of management, discussion with other providers, nursing nursing and ancillary staff involved in patient's care documentation, 35 Minutes Allergies/Procedures Done in Hospital Allergies celecoxib (From Celebrex) Allergy (Verified 05/28/25 09:15) Itching ciprofloxacin (From Cipro) Allergy (Verified 05/28/25 09:15) Swelling ciprofloxacin HCl (From Cipro) Allergy (Verified 05/28/25 09:15) Swelling codeine Allergy (Verified 05/28/25 09:15) Hives ibuprofen Allergy (Verified 05/28/25 09:15) Hives naproxen Allergy (Verified 05/28/25 09:15) Hives Penicillins Allergy (Verified 05/28/25 09:15) Hives tramadol HCl (From Ultram) Allergy (Verified 05/28/25 09:15) Hives ketorolac (From Toradol) Adverse Reaction (Verified 05/28/25 09:15) Swelling Type of Care/Length of Stay Estimated LOS: More Than 30 Days Type of Care Needed: Intermediate Rehab Potential: Fair Prognosis: Fair Additional Orders/Day of Discharge Day of Discharge: 06/01/25 Dietary and Speech Recommendations Dietitian Recommendations/Changes: Will adjust diet to 1600 calorie/consistent carbohydrate; cardiac. Will offer ONS as needed if PO fails at meals. Discharge Plan Admission Admit Date/Time: 05/28/25 11:34 Attending Provider: John Shaw Primary Care Provider: Lizet Linares Consulting Providers: Chavez Alcala; Juan Chiang; Juan Whatley Discharge Orders/Prescriptions Prescriptions: New insulin lispro [Humalog KwikPen Insulin] 100 unit/mL Insulin Pen See Protocol subcut ACHS Qty: 0 0RF Protocol: 4. Sliding Scale Insulin High-Med Dosing Condition: 150-199 mg/dl = 2 units Condition: 200-259 mg/dl = 4 units Condition: 260-324 mg/dl = 6 units Condition: 325-374 mg/dl = 8 units Condition: 375-409 mg/dl = 10 units Condition: 410-449 mg/dl = 11 units Condition: Greater than 449 call physician Protocol Text: Suggested for: - Patients on Total Daily Insulin Dose of 56-80 units - Patient who are known to be insulin resistant or septic HIGH MEDIUM DOSING ALGORITHM insulin lispro [Humalog KwikPen Insulin] 100 unit/mL Insulin Pen 8 unit subcut TIDAC Qty: 0 0RF insulin glargine-yfgn 100 unit/mL (3 mL) Insulin Pen 30 unit subcut BID Qty: 0 0RF doxycycline hyclate 100 mg capsule 100 mg PO BID Qty: 14 0RF Continued pantoprazole 40 mg tablet,delayed release (DR/EC) 40 mg PO DAILY ranolazine 500 mg tablet extended release 12 hr 500 mg PO BID Qty: 60 11RF citalopram 20 mg tablet 20 mg PO QDAY Artificial Tears (cmc) 1 % drops 1 drp ophthalmic (eye) TID rizatriptan 10 tablet 10 mg PO PRN Patient Comments: metoprolol succinate 25 mg Tablet Extended Release 24 Hr 25 mg PO DAILY Qty: 30 2RF atorvastatin 40 mg tablet 40 mg PO QHS Qty: 30 2RF quetiapine 25 mg tablet 25 mg PO QHS acetaminophen 325 mg Tablet 650 mg PO Q6H PRN PRN (Reason: Pain 1-10 Or Fever >100.7) Qty: 0 0RF melatonin 3 mg Tablet 3 mg PO QHS PRN PRN (Reason: Insomnia) Qty: 0 0RF loperamide [Anti-Diarrheal (loperamide)] 2 mg capsule 2 mg PO Q6H PRN (Reason: loose stool) magnesium hydroxide [Dulcolax (magnesium hydroxide)] 400 mg/5 mL suspension 30 ml PO DAILY PRN (Reason: constipation) magnesium citrate [Citrate of Magnesia] Solution 150 ml PO PRN PRN (Reason: constipation) bisacodyl 10 mg suppository 10 mg CA DAILY PRN (Reason: constipation) Trulicity 3 mg/0.5 mL pen injector 3 mg subcut QWEEK fenofibrate 160 mg tablet 160 mg PO DAILY Eliquis 5 mg Tablet 5 mg PO BID ondansetron 4 mg tablet,disintegrating 4 mg PO Q8H PRN PRN (Reason: Nausea) Qty: 10 0RF sennosides-docusate sodium [Stool Softener-Stimulant Laxat] 8.6-50 mg Tablet 2 tab PO BID PRN PRN (Reason: Constipation) Qty: 0 0RF nitroglycerin 0.4 mg tablet, sublingual 0.4 mg sublingual Q5M PRN (Reason: chest pain) Rx Instructions: do not exceed 3 doses per episode fluticasone propionate [Aller-Scar] 50 mcg/actuation spray,suspension 2 spray intranasal DAILY Rx Instructions: administer into each nostril promethazine 25 mg tablet 25 mg PO Q6H PRN (Reason: nausea and vomiting) oxycodone-acetaminophen 5-325 mg tablet 1 tab PO Q6H PRN PRN (Reason: Pain) 3 Days Qty: 12 0RF levothyroxine [Levoxyl] 137 mcg tablet 137 mcg PO QDAY Qty: 90 1RF Discontinued insulin glargine-yfgn 100 unit/mL (3 mL) Insulin Pen 48 unit subcut BID clindamycin HCl 150 mg capsule 450 mg PO TID Qty: 90 0RF oxycodone-acetaminophen 5-325 mg tablet 1 tab PO .every4 hours PRN (Reason: pain) 30 Days Qty: 100 0RF Referrals / Follow Up: Lizet Linares MD [Primary Care Provider] - Within 2 Weeks Disposition Disposition (needs filled in before D/C Order can be placed): Alf Facility
--- NOTE | 2025-06-01 12:17 | PCM.DC.SUM ---
Providers Date of Admission: 05/28/25 Date of Discharge: 06/01/25 Primary Care Physician: Dr. Lizet Linares MD Consultations 05/29/25 08:22 Consult: Infectious Disease Routine Consulting Provider: Juan Chiang Reason for Consult: Right upper lip cellulitis failed outpatient treatment EMERGENT Consult: No Notified: Yes Date Notified: 05/29/25 Time Notified: 08:22 Method of Notification: Text 05/30/25 14:24 Consult: General Surgery Routine Consulting Provider: Juan Whatley Reason for Consult: Right upper lip abscess requiring I&D EMERGENT Consult: No Notified: Yes Date Notified: 05/30/25 Time Notified: 14:26 Method of Notification: Text Reason For Visit: FACE CELLULITIS W/FAILED OUTPATIENT ABX Diagnosis Discharge Diagnosis (1) Infected lip laceration: Status: Acute Code(s): S01.511A - Laceration without foreign body of lip, initial encounter; L08.9 - Local infection of the skin and subcutaneous tissue, unspecified Plan Patient is a 59-year-old lady with history of diabetes mellitus type 2 who presented with swelling and redness and pain involving the right upper lip. 1. Right upper lip swelling with cellulitis and failed outpatient antibiotics ? Admit under inpatient status to [facility]. Presentation consistent with cellulitis secondary to lip wound due to insect bite. Poorly controlled diabetes likely contributing to development of infection. Failed outpatient p.o. clindamycin. Notably aspiration was attempted in the ED on 05/25 with no drainage noted. Patient was started on IV doxycycline and admitted to regular nursing floor. With patient having failed outpatient therapy and with multiple allergies consult was placed to ID ? 05/30/2025;Seen for complaints of leg pain. Patient was seen in consultation by Dr. Chiang with ID adjustment made to patient antibiotic therapy (discontinue doxycycline started patient on Unasyn and vancomycin). Dr. Chiang recommended for ENT consultation however with no ENT coverage plan is for patient to follow-up as outpatient ? 05/31/2025;Patient underwent incision and drainage upper lip absces on 05/31/[address] Whatley cultures sent, swelling involving the lip significantly decreased. ? 06/01/2025;Patient wound cultures so far positive for Staphylococcus aureus. Final identification and sensitivities pending 2. Diabetes mellitus type 2 with skin complication?right upper lip cellulitis ? Patient has history of poorly controlled diabetes mellitus type 2 with recent hemoglobin A1c of 10.5. Glucose on admission was 160. Did continue with home regimen in addition to Accu-Cheks ACHS with sliding scale coverage ? 05/30/2025; glucose control still not optimal subsequent adjustment made to patient insulin regimen 3. Chronic debility ? Patient is at an F 4. Class II obesity with BMI of 39.3 ? Complicating care weight loss advised 5. Chronic kidney disease stage IIIb ? Kidney function at baseline 6. Hypothyroidism ? Patient is on levothyroxine home dose continued 7. GERD ? Patient on PPI 8. Mood disorder ? Patient is on citalopram and Seroquel did continue 9. History of previous VTE ? Patient is on systemic anticoagulation with apixaban 10. Hypertension ? Blood pressure controlled, home medications continued with dose adjustment as needed 11. Dyslipidemia ?Patient is on atorvastatin and fenofibrate did continue 12. DVT prophylaxis ? Already on Eliquis 13. Anemia ? Secondary to chronic disorder monitoring H&H and transfuse if patient becomes symptomatic or hemoglobin falls below 7 14. Physical deconditioning ? Requested for PT OT eval and patient financial services specialist to assist with discharge planning Time spent in the patient's overall evaluation,decision-making process, review of diagnostic data, adjustment of management, discussion with other providers, nursing nursing and ancillary staff involved in patient's care documentation, 35 Minutes Medications at Discharge Home Medications rizatriptan 10 mg tablet 10 mg PO PRN Migraine Symptoms 12/27/17 atorvastatin 40 mg tablet 40 mg PO QHS #30 tabs 05/21/22 metoprolol succinate 25 mg tablet,extended release 24 hr 25 mg PO DAILY #30 tabs 05/21/22 pantoprazole 40 mg tablet,delayed release 40 mg PO DAILY 06/12/22 ranolazine 500 mg tablet,extended release,12 hr 500 mg PO BID #60 tabs 06/12/22 acetaminophen 325 mg tablet 650 mg (2 x 325 mg) PO Q6H PRN PRN Pain 1-10 Or Fever >100.7 #0 tabs 11/24/23 melatonin 3 mg tablet 3 mg PO QHS PRN PRN Insomnia #0 tabs 11/24/23 sennosides 8.6 mg-docusate sodium 50 mg tablet (Stool Softener-Stimulant Laxative) 2 tab PO BID PRN PRN Constipation #0 tabs 01/05/24 loperamide 2 mg capsule (Anti-Diarrheal (loperamide)) 2 mg PO Q6H PRN loose stool 04/02/24 fluticasone propionate 50 mcg/actuation nasal spray,suspension (Aller-Scar) 2 spray intranasal DAILY 06/20/24 nitroglycerin 0.4 mg sublingual tablet 0.4 mg sublingual Q5M PRN chest pain 06/20/24 promethazine 25 mg tablet 25 mg PO Q6H PRN nausea and vomiting 06/20/24 apixaban 5 mg tablet (Eliquis) 5 mg PO BID 08/19/24 bisacodyl 10 mg rectal suppository 10 mg NE DAILY PRN constipation 08/19/24 dulaglutide 3 mg/0.5 mL subcutaneous pen injector (Trulicity) 3 mg subcut QWEEK 08/19/24 fenofibrate 160 mg tablet 160 mg PO DAILY 08/19/24 magnesium citrate (Citrate of Magnesia oral) 150 ml PO PRN PRN constipation 08/19/24 magnesium hydroxide 400 mg/5 mL oral suspension (Dulcolax (magnesium hydroxide)) 30 ml PO DAILY PRN constipation 08/19/24 ondansetron 4 mg disintegrating tablet 4 mg PO Q8H PRN PRN Nausea #10 tabs 10/24/24 carboxymethylcellulose sodium 1 % eye drops (Artificial Tears (carboxymethylcellulose)) 1 drp ophthalmic (eye) TID 01/30/25 citalopram 20 mg tablet 20 mg PO QDAY 01/30/25 quetiapine 25 mg tablet 25 mg PO QHS 01/30/25 levothyroxine 137 mcg tablet (Levoxyl) 137 mcg PO QDAY #90 tabs 04/26/25 doxycycline hyclate 100 mg capsule 100 mg PO BID #14 caps 06/01/25 insulin glargine-yfgn 100 unit/mL (3 mL) subcutaneous pen 30 unit (0.3 mL) subcut BID #0 mL 06/01/25 insulin lispro 100 unit/mL subcutaneous pen (Humalog KwikPen (U-100) Insulin) 8 unit (0.08 mL) subcut TIDAC #0 mL 06/01/25 insulin lispro 100 unit/mL subcutaneous pen (Humalog KwikPen (U-100) Insulin) See Protocol subcut ACHS #0 mL 06/01/25 oxycodone-acetaminophen 5 mg-325 mg tablet 1 tab PO Q6H PRN PRN Pain 3 days #12 TABLETS 06/01/25 Hospital Course Summary of Care Provided Minutes Spent on Discharge: 35 Weight / BMI Weight Weight: 91.2 kg Body Mass Index (BMI) 39.2 ABG / Lab / Microbiology Data 06/01/25 07:29 06/01/25 07:29 Laboratory: Laboratory Results - last 24 hr 05/31/25 16:34: POC Glucose 149 H 05/31/25 22:58: POC Glucose 176 H 06/01/25 07:29: WBC 7.3, RBC 3.91 L, Hgb 10.7 L, Hct 34.7 L, MCV 88.7, MCH 27.4, MCHC 30.8 L, RDW Std Deviation 48.1 H, RDW Coeff of Anisa 15.0 H, Plt Count 384, MPV 9.3, Immature Gran % (Auto) 1.400 H, Neut % (Auto) 53.5, Lymph % (Auto) 35.9, Bacon % (Auto) 5.5, Eos % (Auto) 2.7, Baso % (Auto) 1.0, Absolute Neuts (auto) 3.9, Absolute Lymphs (auto) 2.63, Nucleated RBC % 0, Sodium 135, Potassium 4.1, Chloride 101, Carbon Dioxide 22.5, Anion Gap 11, BUN 21 H, Creatinine 1.16, Estim Creat Clear Calc 51.28, Est GFR (MDRD) Non-Af 54 L, BUN/Creatinine Ratio 17.9, Glucose 181 H, Calcium 9.1 06/01/25 08:13: POC Glucose 172 H 06/01/25 10:20: Vancomycin Trough 17.6 H 06/01/25 11:27: POC Glucose 204 H Microbiology: Microbiology 05/30/25 17:00 Insect Bite Gram Stain - Final 05/30/25 17:00 Insect Bite Wound Culture - Final Meth. resistant Staph. aureus 05/28/25 09:45 Blood Culture (Wb) - Anticubital Left Blood Culture - Preliminary No growth in 48 hours. 05/28/25 09:49 Blood Culture (Wb) - Arm Right Blood Culture - Preliminary No growth in 48 hours. D/C Instructions DC O2, CPAP, BIPAP Needs Home O2 Discharge instructions: No Meaningful Use Info Meaningful Use Meaningful Use Diagnoses (Choose all that apply): None applicable Discharge Plan Admission Admit Date/Time: 05/28/25 11:34 Attending Provider: John Shaw Primary Care Provider: Lizet Linares Consulting Providers: Chavez Alcala; Juan Chiang; Juan Whatley Discharge Orders/Prescriptions Prescriptions: New insulin lispro [Humalog KwikPen Insulin] 100 unit/mL Insulin Pen See Protocol subcut ACHS Qty: 0 0RF Protocol: 4. Sliding Scale Insulin High-Med Dosing Condition: 150-199 mg/dl = 2 units Condition: 200-259 mg/dl = 4 units Condition: 260-324 mg/dl = 6 units Condition: 325-374 mg/dl = 8 units Condition: 375-409 mg/dl = 10 units Condition: 410-449 mg/dl = 11 units Condition: Greater than 449 call physician Protocol Text: Suggested for: - Patients on Total Daily Insulin Dose of 56-80 units - Patient who are known to be insulin resistant or septic HIGH MEDIUM DOSING ALGORITHM insulin lispro [Humalog KwikPen Insulin] 100 unit/mL Insulin Pen 8 unit subcut TIDAC Qty: 0 0RF insulin glargine-yfgn 100 unit/mL (3 mL) Insulin Pen 30 unit subcut BID Qty: 0 0RF doxycycline hyclate 100 mg capsule 100 mg PO BID Qty: 14 0RF Continued pantoprazole 40 mg tablet,delayed release (DR/EC) 40 mg PO DAILY ranolazine 500 mg tablet extended release 12 hr 500 mg PO BID Qty: 60 11RF citalopram 20 mg tablet 20 mg PO QDAY Artificial Tears (cmc) 1 % drops 1 drp ophthalmic (eye) TID rizatriptan 10 tablet 10 mg PO PRN Patient Comments: metoprolol succinate 25 mg Tablet Extended Release 24 Hr 25 mg PO DAILY Qty: 30 2RF atorvastatin 40 mg tablet 40 mg PO QHS Qty: 30 2RF quetiapine 25 mg tablet 25 mg PO QHS acetaminophen 325 mg Tablet 650 mg PO Q6H PRN PRN (Reason: Pain 1-10 Or Fever >100.7) Qty: 0 0RF melatonin 3 mg Tablet 3 mg PO QHS PRN PRN (Reason: Insomnia) Qty: 0 0RF loperamide [Anti-Diarrheal (loperamide)] 2 mg capsule 2 mg PO Q6H PRN (Reason: loose stool) magnesium hydroxide [Dulcolax (magnesium hydroxide)] 400 mg/5 mL suspension 30 ml PO DAILY PRN (Reason: constipation) magnesium citrate [Citrate of Magnesia] Solution 150 ml PO PRN PRN (Reason: constipation) bisacodyl 10 mg suppository 10 mg NE DAILY PRN (Reason: constipation) Trulicity 3 mg/0.5 mL pen injector 3 mg subcut QWEEK fenofibrate 160 mg tablet 160 mg PO DAILY Eliquis 5 mg Tablet 5 mg PO BID ondansetron 4 mg tablet,disintegrating 4 mg PO Q8H PRN PRN (Reason: Nausea) Qty: 10 0RF sennosides-docusate sodium [Stool Softener-Stimulant Laxat] 8.6-50 mg Tablet 2 tab PO BID PRN PRN (Reason: Constipation) Qty: 0 0RF nitroglycerin 0.4 mg tablet, sublingual 0.4 mg sublingual Q5M PRN (Reason: chest pain) Rx Instructions: do not exceed 3 doses per episode fluticasone propionate [Aller-Scar] 50 mcg/actuation spray,suspension 2 spray intranasal DAILY Rx Instructions: administer into each nostril promethazine 25 mg tablet 25 mg PO Q6H PRN (Reason: nausea and vomiting) oxycodone-acetaminophen 5-325 mg tablet 1 tab PO Q6H PRN PRN (Reason: Pain) 3 Days Qty: 12 0RF levothyroxine [Levoxyl] 137 mcg tablet 137 mcg PO QDAY Qty: 90 1RF Discontinued insulin glargine-yfgn 100 unit/mL (3 mL) Insulin Pen 48 unit subcut BID clindamycin HCl 150 mg capsule 450 mg PO TID Qty: 90 0RF oxycodone-acetaminophen 5-325 mg tablet 1 tab PO .every4 hours PRN (Reason: pain) 30 Days Qty: 100 0RF Referrals / Follow Up: Lizet Linares MD [Primary Care Provider] - Within 2 Weeks Disposition Disposition (needs filled in before D/C Order can be placed): Intermediate Facility Charges/Coding Visit Charges Inpatient E&M: 76845 Disch Hosp >30min
[2025-06-01] MEDS: Vancomycin HCl 750 MG in 0.9% Normal Saline (250mL Bag) 250 ML 250 MG IV (12:38)
--- NOTE | 2025-06-01 12:50 | CASEMGMT ---
Social Work Physician updated and pt is ready for discharge today. SW met with pt and they are agreeable to discharge plan as stated above.? DCA and bedside nurse notified of discharge. DCA to complete all final arrangements and notifications. Disposition:[facility], return intermediate level of care IRIS Cabezas
--- NOTE | 2025-06-01 14:34 | CASEMGMT ---
Discharge Planning Discharge orders, signed med list, and transport time sent to [facility]. Physicians will transport pt by wheelchair at 3:30p. Nursing, SW, and pt updated. Pt will update her . Rachel Bueno DC Planning Asst.
[2025-06-01 15:01] VITALS: BP 138/57; PULSE 67; RESP 18; TEMP 36.8; O2SAT 97
== END 2025-06-01 17:00 | disposition skilled nursing facility (03) | DRG 638 ==
LOC: ED 09:42 → MS3 11:50
PROVIDERS: Internal Medicine Infectious Disease; Admitting Provider Hospitalist; Emergency Provider Student in an Organized Health Care Education/Training Program; PCP Internal Medicine; Visit Provider Internal Medicine
DX: E11.628 Type 2 diabetes mellitus with other skin complications (principal); L03.211 Cellulitis of face; B95.62 Methicillin resistant Staphylococcus aureus infection as the cause of diseases classified elsewhere; D63.1 Anemia in chronic kidney disease; E11.22 Type 2 diabetes mellitus with diabetic chronic kidney disease; E03.9 Hypothyroidism, unspecified; E66.812 Obesity, class 2; E11.65 Type 2 diabetes mellitus with hyperglycemia; N18.32 Chronic kidney disease, stage 3b; I12.9 Hypertensive chronic kidney disease with stage 1 through stage 4 chronic kidney disease, or unspecified chronic kidney disease; F39 Unspecified mood [affective] disorder; K13.0 Diseases of lips; E78.5 Hyperlipidemia, unspecified; K21.9 Gastro-esophageal reflux disease without esophagitis; T63.331A Toxic effect of venom of brown recluse spider, accidental (unintentional), initial encounter; R53.81 Other malaise; Z68.39 Body mass index [BMI] 39.0-39.9, adult; Z79.01 Long term (current) use of anticoagulants; Z79.85 Long-term (current) use of injectable non-insulin antidiabetic drugs; Z79.890 Hormone replacement therapy; Z79.899 Other long term (current) drug therapy; Z86.718 Personal history of other venous thrombosis and embolism; Z87.891 Personal history of nicotine dependence
CPT/HCPCS: 36415; 80048; 80202; 82962; 83605; 83735; 84100; 85025; 85027; 87040; 87070; 87077; 87186; 87205; 96365; 96375; 97802; 99285; 99406; A4216; J0295; J2405

== ENCOUNTER → 2025-06-04 05:00 | Outpatient (REF) | payer MEDICARE, SELFPAY ==
[2025-06-04 10:16] LABS: AST(SGOT) 34 U/L (<=31); Alanine Aminotransfer ALT/SGPT 18 U/L (<=34); Albumin, Serum 3.5 g/dL (3.4-4.8); Alkaline Phosphatase 43 U/L (35-104); Bilirubin, Direct 0.16 mg/dL (0.00-0.30); Globulin 3.0 g/dL (2.2-4.2)
== END ==
LOC: OLS.WHLEAS 05:00
PROVIDERS: PCP Internal Medicine; Visit Provider Internal Medicine
DX: E11.42 Type 2 diabetes mellitus with diabetic polyneuropathy (principal); E11.22 Type 2 diabetes mellitus with diabetic chronic kidney disease; N18.31 Chronic kidney disease, stage 3a; I12.9 Hypertensive chronic kidney disease with stage 1 through stage 4 chronic kidney disease, or unspecified chronic kidney disease; E03.9 Hypothyroidism, unspecified
CPT/HCPCS: 36415; 80076

== ENCOUNTER → 2025-06-11 05:00 | Outpatient (REF) | payer MEDICARE, MEDICAID, SELFPAY | LOC: OLS.WHLEAS 05:00 | PROVIDERS: PCP Internal Medicine; Visit Provider Internal Medicine | DX: E11.22 Type 2 diabetes mellitus with diabetic chronic kidney disease (principal); N18.31 Chronic kidney disease, stage 3a; E11.42 Type 2 diabetes mellitus with diabetic polyneuropathy; I12.9 Hypertensive chronic kidney disease with stage 1 through stage 4 chronic kidney disease, or unspecified chronic kidney disease; E03.9 Hypothyroidism, unspecified | CPT/HCPCS: 36415; 84443 ==

== ENCOUNTER → 2025-06-28 05:00 | Outpatient (REF) | payer MEDICARE, MEDICAID, SELFPAY ==
--- OUTSIDE RECORDS SUMMARY | 2025-06-28 03:54 | XMS RPT_ITS | CCD ---
Author Organization [facility] Care Team Providers Care Communication Signals Intelligence Name Role Phone SIXTO CALIXTO Unavailable Unavailable SIXTO CALIXTO Unavailable Unavailable CEBUL, CARLEE Unavailable Unavailable Angelika De La Torre LPN Unavailable Unavailab le Calixto, Tj L Unavailable Unavailable Calixto, Tj L Unavailable Unavailable Calixto, Tj L Unavailable Unavailable No Family Physician given Unavailable Unavai lable Calixto, Tj L Unavailable Unavailable No Family Physician given Unavailable Unavai lable Calixto, Tj L Unavailable Unavailable No Family Physician given Unavailable Unavai lable Dr. Jarred Lopez Primary Care Provider [phone] Dr. Kelechi Geller Emergency Provider [phone] Dr. Kathia Shine Admit Provider Dr. Kathia Shine Other Provider JED Rivas-Zeus Jin Attending Provider Unavail able Dr. Kathia Shine Attending Provider Dr. Ramez Prieto Attending Provider Dr. Ramez Prieto Other Provider Velasquez UNIVERSAL GRINDER TOOL, UNIVERSAL GRINDER TOOL-C Tanisha Attending Provider Unavailable Primary Care Provider UnavailDr. Ana Mckeon Attending Provider Dr. Ana Rivera Other Provider Dr. Bronson Retana Emergency Provider Luis Felipe, Dr. Yanna Stern Admit Provider Dr. Yanna Briscoe Attending Provider Dr. Yanna Briscoe Other Provider Dr. Mian Lee Attending Provider Dr. Ganesh Garcia Primary Care Provider Yimi ADKINS, JED-C Ana Maria Attending Provider Unav Dr. Scott Salamanca Referring Provider Dr. Tip Hamilton Emergency Provider Dr. Hansa Cast Admit Provider Dr. Hansa Cast Other Provider Dr. Júnior Lombardo Attending Provider Dr. Júnior Lombardo Other Provider Miriam Ctoe Attending Provider Unavailable Dr. Ganesh Garcia Referring Provider Rakesh ADKINS, JED-Zeus Pineda Attending Provider Dr. Jarred Lopez Primary Care Provider Dr. Ramez Prieto Other Provider Dr. Ramez Prieto Attending Provider Dr. Ganesh Garcia Primary Care Provider Dr. Mian Lee Attending Provider Yimi ADKINS, JED-C Ana Maria Attending Provider Unav Dr. Ramez De Other Provider Dr. Ganesh Garcia Primary Care Provider Miriam Cote Attending Provider Unavailable Dr. Ganesh Garcia Referring Provider Rakesh ADKINS NP-Zeus Pineda Attending Provider Dr. Júnior Lombardo Attending Provider Yimi ADKINS, JED-Zeus Rodgers Attending Provider Dr. Ganesh Steinberg Primary Care Provider Dr. Ganesh Garcia Primary Care Provider Dr. Lizet Linares Primary Care Provider Dr. Lizet Linares Attending Provider Dr. Ganesh Garcia Referring Provider Rakesh ADKINS, UNIVERSAL GRINDER TOOL-C Miriam Attending Provider Dr. Ganesh Garcia Primary Care Provider Dr. Ganesh Garcia Primary Care Provider Dr. Ganesh Garcia Referring Provider Rakesh UNIVERSAL GRINDER TOOL, UNIVERSAL GRINDER TOOL-C Miriam Attending Provider Dr. Lizet Linares Primary Care Provider Yimi UNIVERSAL GRINDER TOOL, UNIVERSAL GRINDER TOOL-C Ana Maria Attending Provider Unav Dr. Lizet Coronel Attending Provider [phone] Yimi OLS, UNIVERSAL GRINDER TOOL-C Ana Maria Attending Provider Unavailable Primary Care Provider Dr. Lizet Oconnor Primary Care Provider [phone] Yimi UNIVERSAL GRINDER TOOL, UNIVERSAL GRINDER TOOL-C Ana Maria Attending Provider Unav Dr. Lizet Coronel Attending Provider [phone] Yimi NOLASCO, UNIVERSAL GRINDER TOOL-C Ana Maria Attending Provider [phone] Dwayne Lopez MD Primary Care Provider Dr. Lizet Linares Primary Care Provider Yimi UNIVERSAL GRINDER TOOL, UNIVERSAL GRINDER TOOL-C Ana Maria Attending Provider Unav Dr. Lizet Coronel Attending Provider Dr. Ganesh Garcia Referring Provider Rakesh UNIVERSAL GRINDER TOOL, UNIVERSAL GRINDER TOOL-C Miriam Attending Provider Dr. Lizet Linares Primary Care Provider Dr. Lizet Linares Attending Provider Yimi UNIVERSAL GRINDER TOOL, UNIVERSAL GRINDER TOOL-C Ana Maria Attending Provider Cynthiav Dr. Jarred Avila Primary Care Provider Dr. Zack Choi Emergency Provider Dr. John Shaw Admit Provider Unavailable Dr. John Shaw Attending Provider Unavailable Dr. John Shaw Other Provider Unavailable Dr. Paresh Hernandez Attending Provider Dr. Paresh Hernandez Other Provider Dr. Jarred Lopez Primary Care Provider [phone] Dr. Zack Choi Emergency Provider Dr. John Shaw Admit Provider Unavailable Kitcharles, Dr. Lopez Attending Provider Unavailable Colin, Dr. Lopez Other Provider Unavailable David, Dr. Yoder Attending Provider Dr. Paresh Hernandez [...] Unavailable Colin, Dr. Lopez Other Provider Unavailable Terlula, Dr. Yoder Attending Provider Dr. Paresh Hernandez Other Provider Dr. Raisa Mc Emergency Provider Dr. Hansa Cast Admit Provider Dr. Hansa Cast Other Provider Dr. Chavez Alcala Attending Provider [phone] Dr. Chavez Alcala Other Provider [phone] Dr. Cat Guadarrama Attending Provider Dr. Juan Valencia Attending Provider Dr. Ana Rivera Attending Provider Dr. Ana Rivera Other Provider Yimi UNIVERSAL GRINDER TOOL, UNIVERSAL GRINDER TOOL-C Ana Maria Attending Provider Dr. Lizet Linares Attending Provider Dr. Chavez Alcala Referring Provider John SANTANA, Dwayne Kaiser Primary Care Provider Unavailable Primary Care Provider Unavailabl tal Lopez MD, Dwayne Kaiser Primary Care Provider Podlogar STOVE MOUNTER.CAMERA SUPERVISOR, Jesica Unavailable Knoble STOVE MOUNTER.CAMERA SUPERVISOR, Annabel Unavailable Dr. Lizet Linares MD Primary Care Provider Dr. Lizet Linares MD Attending Provider [phone] Lizet Linares MD Attending Provider Unavailjosé manuel Linares MD, Dr. Hinds Referring Provider [phone] Lizet Linares MD Referring Provider UnavailDr. Salvador Min DO Attending Provider Dr. Salvador Campbell DO Emergency Provider Yimi UNIVERSAL GRINDER TOOL-CAna Maria Attending Provider Dr. Zack Choi DO Emergency Provider Dr. Lizet Linares MD Primary Care Provider Dr. Lizet Linares MD Attending Provider [phone] Claude Cain Attending Provider Dr. Zack Choi DO Attending Provider Knoble STOVE MOUNTER.CAMERA SUPERVISOR, Annabel Unavailable Dr. Lizet Linares MD Primary Care Provider Dr. Lizet Linares MD Attending Provider [phone] Lizet Linares MD Attending Provider UnavailClaude Perez Attending Provider Dr. Zack Choi DO Attending Provider Dr. Zack Choi DO Emergency Provider Yimi UNIVERSAL GRINDER TOOL-C, Ana Maria Attending Provider Milagros SANTANA, Dr. Hinds Referring Provider Kyler REYNOLDS, Shonda Fleming Attending Provider Tickwinosme UNIVERSAL GRINDER TOOL-C, Ana Maria Attending Provider [phone] Milagros SANTANA, Lizet Referring Provider Unavailjosé manuel Rivas STOVE MOUNTER.DEYANIRA, Annabel Unavailable Milagros SANTANA, Dr. Hinds Primary Care Provider Milagros SANTANA, Dr. Hinds Attending Provider [phone] Milagros SANTANA, Lizet Attending Provider UnavailClaude Perez Attending Provider Milagros SANTANA, Dr. Hinds Primary Care Provider Yimi UNIVERSAL GRINDER TOOL-C, Ana Maria Attending Provider Milagros SANTANA, Dr. Hinds Primary Care Provider Milagros SANTANA, Dr. Hinds Attending Provider [phone] Dr. Raúl Alejo DO Emergency Provider Griffin SANTANA, Dr. Estrella Emergency Provider Unavailab Dr. Chavez Conway DO Admit Provider Dr. Chavez Alcala DO Attending Provider Milagros SANTANA, Dr. Hinds Primary Care Provider Tickwinsome UNIVERSAL GRINDER TOOL-C, Ana Maria Attending Provider Yimi UNIVERSAL GRINDER TOOL-C, Ana Maria Attending Provider [phone] Lizet Linares MD Attending Provider Varun Linares MD, Lizet Referring Provider Varun Linares MD, Dr. Hinds Attending Provider [phone] Claude Cain Attending Provider [phone] Raúl Emergency Provider [phone] Griffin SANTANA, Dr. Estrella Emergency Provider Unavailab brenda Alcala DO, Dr. Byrne Admit Provider Fredrick TIRADO, Dr. Byrne Other Provider Colin SANTANA, Dr. Lopez Attending Provider Unavailjosé manuel Chiang MD, Dr. Martinez Other Provider Chacorta SANTANA, Dr. Martinez Other Provider Colin SANTANA, Dr. Loepz Other Provider Unavailable Jorge SANTANA, Dr. Mcdonald Other Provider [phone] Dr. Juan Whatley MD Attending Provider Milagros SANTANA, Dr. Hinds Primary Care Provider Fredrick TIRADO, Dr. Byrne Other Provider Colin SANTANA, Dr. Lopez Attending Provider Unavailjosé manuel Chiang MD, Dr. Martinez Other Provider Chacorta SANTANA, Dr. Martinez Other Provider Colin SANTANA, Dr. Lopez Other Provider Unavailable Jorge SANTANA, Dr. Mcdonald Other Provider Chacorta SANTANA, Dr. Martinez Attending Provider Brenda TIRADO, Dr. Olsen Attending Provider [phone] Milagros SANTANA, Dr. Hinds Referring Provider Oleghe OLS, Efewongbe Attending Unavailabl e Oleghe, Efewongbe Primary Care Unavailable Oleghe OLS, Efchristaongbe Attending Unavailabl e Oleghe, Efewongbe Primary Care Unavailable Chavez Alcala Consulting Unavailable John Shaw Attending Unavailable Chavez Alcala Admitting Unavailable Oleghe, Efewongbe Primary Care Unavailable Juan Chiang Consulting Unavailable Juan Whatley Consulting Unavailable Oleghe OLS, Efewongbe Attending Unavailabl e Oleghe, Efewongbe Primary Care Unavailable Oleghe, Efewongbe Primary Care Unavailable Oleghe OLS, Efewongbe Attending Unavailabl e Oleghe OLS, Efewongbe Attending Unavailabl e Oleghe, Efewongbe Primary Care Unavailable Oleghe OLS, Efewongbe Attending Unavailabl e Oleghe, Efewongbe Primary Care Unavailable Sumit Urbina Attending Unavailable Oleghe, Efewongbe Primary Care Unavailable Oleghe, Efewongbe Referring Unavailable Oleghe, Efewongbe Primary Care Unavailable Daniel Mari Referring Unavailable Daniel Mari Attending Unavailable Oleghe, Efewongbe Referring Unavailable Oleghe, Efewongbe Attending Unavailable Oleghe, Efewongbe Primary Care Unavailable Oleghe, Efewongbe Primary Care Unavailable Raúl Alejo Attending Unavailable Oleghe, Efewongbe Primary Care Unavailable Oleghe, Efewongbe Attending Unavailable Oleghe OLS, Efewongbe Attending Unavailabl e Oleghe, Efewongbe Primary Care Unavailable Oleghe OLS, Efewongbe Attending Unavailabl e Oleghe, Efewongbe Primary Care Unavailable Oleghe OLS, Efewongbe Attending Unavailabl e Oleghe, Efewongbe Primary Care Unavailable Oleghe OLS, Efewongbe Referring Unavailabl e Oleghe OLS, Efewongbe Attending Unavailabl e Oleghe, Efewongbe Primary Care Unavailable Oleghe, Efewongbe Primary Care Unavailable Tickton UNIVERSAL GRINDER TOOL, Ana Maria Attending Unavailable Oleghe, Efewongbe Primary Care Unavailable Claude Cain Attending Unavailable Oleghe, Efewongbe Attending Unavailable Oleghe, Efewongbe Primary Care Unavailable Oleghe, Efewongbe Primary Care Unavailable Oleghe OLS, Efewongbe Attending Unavailabl e Oleghe, Efewongbe Primary Care Unavailable Oleghe OLS, Efewongbe Attending Unavailabl e Tickton UNIVERSAL GRINDER TOOL, Ana Maria Attending Unavailable Oleghe, Efewongbe Primary Care Unavailable Oleghe, Efewongbe Attending Unavailable Oleghe, Efewongbe Primary Care Unavailable [place]ickton UNIVERSAL GRINDER TOOL, Ana Maria Attending Unavailable Oleghe, Efewongbe Primary Care Unavailable Oleghe, Efewongbe Attending Unavailable Oleghe, Efewongbe Primary Care Unavailable Oleghe, Efewongbe Primary Care Unavailable [place]ton UNIVERSAL GRINDER TOOL, Ana Maria Attending Unavailable [place]ton UNIVERSAL GRINDER TOOL, Ana Maria Attending Unavailable Oleghe, Efewongbe Primary Care Unavailable Claude Cain Attending Unavailable Oleghe, Efewongbe Primary Care Unavailable Oleghe, Efewongbe Primary Care Unavailable Oleghe, Efewongbe Attending Unavailable T[place]ton UNIVERSAL GRINDER TOOL, Ana Maria Attending Unavailable Oleghe, Efewongbe Primary Care Unavailable Oleghe, Efewongbe Primary Care Unavailable [place]ton UNIVERSAL GRINDER TOOL, Ana Maria Attending Unavailable Oleghe, Efewongbe Primary [...] Unavailabl e Oleghe, Efewongbe Primary Care Unavailable Raúl Alejo [...] Unavailabl e Oleghe, Efewongbe Primary Care Unavailable Zack Choi [...] Unavailable Oleghe, Efewongbe Primary Care Unavailable [place]ickton UNIVERSAL GRINDER TOOL, Ana Maria Attending Unavailable Oleghe, Efewongbe Primary Care Unavailable Oleghe OLS, Efewongbe Attending Unavailabl e Oleghe, Efewongbe Primary Care Unavailable [place] UNIVERSAL GRINDER TOOL, Ana Maria Attending Unavailable Oleghe, Efewongbe Primary Care Unavailable Chavez Alcala Consulting Unavailable Chavez Alcala Admitting Unavailable Oleghe, Efewongbe Primary Care Unavailable John Shaw Attending Unavailable Juan Chiang Consulting Unavailable Austyn Patel Consulting Unavailable John Shaw Consulting Unavailable Juan Whatley Attending Unavailable Chavez Alcala Attending Unavailable Oleghe, Efewongbe Referring Unavailable Oleghe, Efewongbe Primary Care Unavailable Sumit Urbina Attending Unavailable Oleghe, Efewongbe Attending Unavailable Oleghe, Efewongbe Primary Care Unavailable Oleghe, Efewongbe Primary Care Unavailable Tickwinsome UNIVERSAL GRINDER TOOL, Ana Maria Attending Unavailable Oleghe, Efewongbe Primary Care Unavailable Shonda Glover Attending Unavail able Oleghe, Efewongbe Referring Unavailable Oleghe, Efewongbe Primary Care Unavailable Yimi UNIVERSAL GRINDER TOOL, Ana Maria Attending Unavailable Juan Whatley Attending Unavailable Oleghe, Efewongbe Referring Unavailable Oleghe, Efewongbe Primary Care Unavailable Juan Whatley Attending Unavailable Oleghe, Efewongbe Referring Unavailable Oleghe, Efewongbe Primary Care Unavailable [place]ickton UNIVERSAL GRINDER TOOL, Ana Maria Attending Unavailable Oleghe, Efewongbe Primary Care Unavailable [place]ton UNIVERSAL GRINDER TOOL, Ana Maria Attending Unavailable Oleghe, Efewongbe Primary Care Unavailable Oleghe, Efewongbe Primary Care Unavailable Oleghe, Efewongbe Attending Unavailable Oleghe, Efewongbe Primary Care Unavailable Oleghe OLS, Efewongbe Attending Unavailabl e Oleghe OLS, Efewongbe Attending Unavailabl e Oleghe, Efewongbe Primary Care Unavailable Oleghe, Efewongbe Primary Care Unavailable Basali, Ayman Referring Unavailable Basaldavy Ayman Attending Unavailable Oleghe, Efewongbe Primary Care Unavailable Shonda Glover Attending Unavail able Shonda Glover Referring Unavail able Juan Whatley Consulting Unavailable Oleghe, Efewongbe Primary Care Unavailable Yimi UNIVERSAL GRINDER TOOL, Ana Maria Attending Unavailable Oleghe, Efewongbe Primary Care Unavailable Tickton UNIVERSAL GRINDER TOOL, Ana Maria Attending Unavailable Oleghe, Efewongbe Primary Care Unavailable Tickton OLSAna Maria Attending Unavailable Oleghe OLS, Efewongbe Attending Unavailabl e Oleghe, Efewongbe Primary Care Unavailable Allergies Allergy Classification Reported Allergen(s) Allergy Type Date of Onset Reaction(s) Facility (20 sources) ciprofloxacin; Translations: [CIPROFLOXACIN] Drug Allergy 8 Swelling [facility] Repository (20 sources) codeine; Translations: [CODEINE] Drug Allergy 4 Hives, Itching [facility] Repository (20 sources) ibuprofen; Translations: [IBUPROFEN] Drug Allergy 7 [facility] Repository (20 sources) metFORMIN; Translations: [METFORMIN] Drug Allergy 7 Intolerance [facility]ository (20 sources) naproxen; Translations: [NAPROXEN] Drug Allergy 7 [facility] Repository (20 sources) Penicillins; Translations: [PENICILLINS] Propensity to adverse reactions (disorder) 7 [facility] Repository (20 sources) traMADol; Translations: [TRAMADOL HCL] Drug Allergy 7 [facility] Repository (1 source) Ciprofloxacin Drug Allergy 7 [facility] Work Phone: (1 source) Ketorolac Drug Allergy itching [facility] Work Phone: (1 source) Naproxen Drug Allergy 0 eyes swell, hives [facility] Work Phone: (1 source) Penicillin V Drug Allergy hives [facility] Work Phone: (1 source) traMADol Drug Allergy face swells [facility] Work Phone: (20 sources) celecoxib Drug Allergy 0 Rash [facility] (20 sources) Ciprofloxacin; Translations: [ciprofloxacin HCl] Drug Allergy 2 Swelling [facility] (20 sources) Ketorolac Drug Allergy 9 GI Upset [facility] Work Phone: (6 sources) tirzepatide; Translations: [tirzepatide] Propensity to adverse reactions 5 [facility] (1 source) celecoxib Drug Allergy 5 [facility] (1 source) Ketorolac Drug Allergy 5 [facility] Repository Medications Current Medications Medication Drug Class(es) Dates Sig (Normalized) Sig (Original) acetaminophen 325 mg oral tablet (20 sources) Start: 11-24-2023 Start: 11-24-2023 Start: 03-27-2022 End: 11-19-2023 Start: 03-27-2022 End: 11-19-2023 acetaminophen 325 mg / HYDROcodone bitartrate 5 mg oral tablet (20 sources) Opioid Agonist Start: 01-06-2023 take 1 tablet by mouth every four hours as needed Hydrocodone-Acetaminophen Active 1 TABLET PO EVERY 4 HOURS NEEDED 10 2 January 06, 2023 Start: 01-06-2023 Start: 02-28-2021 End: 05-13-2021 Start: 02-28-2021 End: 05-13-2021 Hydrocodone-Acetaminophen 1 TABLET [...] End: 11-17-2019 Start: 11-14-2019 End: 11-17-2019 Hydrocodone-Acetaminophen 1 EACH [...] EACH PO EVERY 4 HOURS NEEDED 10 3 November 14, 2019 November 17, 2019 1:08am Start: 08-02-2019 End: 08-07-2019 Start: 08-02-2019 End: 08-07-2019 Hydrocodone-Acetaminophen 1 TABLET [...] PO EVERY 6 HOURS NEEDED 10 3 August 02, 2019 August 07, 2019 12:09am Start: 06-29-2019 End: 07-07-2019 Start: 06-29-2019 End: 07-07-2019 Hydrocodone-Acetaminophen 1 TABLET [...] 07-24-2018 End: 07-27-2018 Start: 07-24-2018 End: 07-27-2018 take 1 tablet by mouth four times daily as needed for pain Hydrocodone-Acetaminophen ([place] 5-325 Tablet) 1 EACH tablet Discontinued 1 - 2 NMA PO 4 TIMES DAILY NEEDED as needed for Pain 12 3 0 July 24, 2018 12:00am July 26, 2018 12:00am July 27, 2018 12:07am Fracture of rib Fracture of one rib, unspecified side, initial encounter for closed fracture Start: 07-24-2018 End: 07-27-2018 Start: 07-19-2018 End: 07-22-2018 Start: 07-19-2018 End: 07-22-2018 Hydrocodone-Acetaminophen 1 TABLET [...] 11-04-2015 End: 04-22-2016 Start: 11-04-2015 End: 04-22-2016 Hydrocodone-Acetaminophen 1 TABLET tablet Discontinued 1 {tbl} PO THREE TIMES A DAY November 04, 2015 1:00am April 22, 2016 7:08am Start: 11-04-2015 End: 04-22-2016 Start: 11-04-2015 End: 04-22-2016 take 1 tablet by mouth three times daily Hydrocodone-Acetaminophen Discontinued 1 TABLET PO THREE TIMES A DAY November 04, 2015 1:00am April 22, 2016 7:08am aluminum hydroxide 80 mg/ml / magnesium hydroxide 80 mg/ml / simethicone 8 mg/ml oral suspension (20 sources) Start: 04-24-2022 take 1 mL by mouth every four hours Alum-Mag Hydroxide-Simeth (Mylanta Maximum Strength) 400-400-40 mg/5 mL Suspension Active 15 ML PO Q4H April 24, 2022 12:00am Start: 04-24-2022 apixaban 5 mg oral tablet (20 sources) Factor Xa Inhibitor Start: 01-05-2024 End: 08-19-2024 Start: 01-05-2024 End: 08-19-2024 take 2 tablets by mouth twice daily Apixaban (Eliquis) 5 mg Tablet Discontinued 10 mg PO TWICE A DAY 0 0 January 05, 2024 12:00am August 19, 2024 10:47pm ARIPiprazole 15 mg oral tablet (6 sources) Atypical Antipsychotic Start: 06-20-2021 take 1 tablet by mouth at bedtime Aripiprazole (Abilify) 15 mg Tablet Active 15 MG PO AT BEDTIME June 20, 2021 12:00am atorvastatin 40 mg oral tablet (20 sources) HMG-CoA Reductase Inhibitor Start: 05-21-2022 End: 08-18-2023 Start: 10-15-2020 End: 04-07-2023 take 1 tablet [...] 2022 11:00pm bisacodyl 10 mg rectal suppository (20 sources) Stimulant Laxative Start: 4 Blood-Glucose Meter [...] above: Free style lite Insu linx carboxymethylcellulose sodiu m 10 mg/ml ophthalmic solution (19 sources) Start: 025 cephalexin 500 mg oral capsule (8 sources) Cephalosporin Antibacterial Start: 022 take 500 mg by mouth three times daily Cephalexin Active 500 MG PO THREE TIMES A DAY 14 05October 09, 2022 12:00am Start: 09-27-2021 take 500 mg by mouth every six hours Cephalexin Active 500 MG PO EVERY 6 HOURS January 13, 2022 7:02pm citalopram 20 mg oral tablet (20 sources) Serotonin Reuptake Inhibitor Start: 01-30-2025 Start: 08-19-2024 End: 01-30-2025 Start: 06-20-2021 take 1 tablet by dmitry th once daily Citalopram (Celexa) 20 mg Tablet Active 20 MG PO DAILY June 20, 2021 6:19pm Start: 07-28-2017 CELEXA TABS as directed CITALOPRAM HYDROBROMIDE TABS [id number] Angelika De La Torre LPN cyclobenzaprine hydrochloride 10 mg oral tablet (5 sources) Muscle Relaxant Start: 03-24-2022 take 10 mg by mouth three times daily Cyclobenzaprine Active 10 MG PO THREE TIMES A DAY 0 March 24, 2022 12:00am Start: 01-20-2012 End: 07-28-2017 take 1 tablet by mouth three times daily as needed FLEXERIL 10 MG TABS One tablet by mouth three times daily as needed CYCLOBENZAPRINE HCL [id number] Yaw Cabrera MD docusate sodium 50 mg / wanda osides, longterm 8.6 mg oral tablet (20 sources) Start: 01-05-2024 Start: 01-05-2024 Sennosides-Doc usate Sodium (Stool Softener-Stimulant Laxat) 8.6-50 mg Tablet Active 2 {tbl} PO TWICE DAILY NEEDED as needed for Constipation 0 0 January 05, 2024 12:00am Start: 01-05-2024 Start: 03-27-2022 End: 11-19-2023 Start: 03-27-2022 End: 11-19-2023 Sennosides-Docusate Sodium ( Stool Softener-Stimulant Laxat) 8.6-50 mg Tablet Discontinued 2 {tbl} PO TWICE A DAY 0 0 March 27, 2022 12:00am November 19, 2023 11:40am Start: 03-27-2022 End: 11-19-2023 doxycycline hyclate 100 mg o ral capsule (20 sources) Tetracycline-class Drug Start: 06-01-2025 Start: 12-10-2017 End: 12-20-2017 Dulaglutide (20 sources) GLP-1 Receptor Agonist Start: 08-19-2024 Dulaglu tide (Trulicity) 3 mg/0.5 mL pen injector Active 3 mg SC EVERY WEEK August 19, 2024 12:00am Start: 08-19-2024 Start: 03-24-2024 End: 08-19-2024 Start: 03-24-2024 End: 08-19-2024 Dulaglutide (Trulicity) 1.5 mg/0.5 mL pen injector Discontinued 1.5 mg SC Q7D March 24, 2024 12:00am August 19, 2024 10:44pm MONDAYS Start: 01-29-2023 End: 11-24-2023 Dulaglutide (Trulicity) 3 [...] 08-19-2024 Start: 01-29-2023 End: 08-19-2024 Start: 01-29-2023 End: 08-19-2024 take 1 capsule by mouth at bedtime Fenofibrate 50 mg Capsule Discontinued 50 mg PO AT BEDTIME January 29, 2023 12:00am August 19, 2024 10:46pm Start: 01-29-2023 fluticasone propionate 0.05 mg/actuat metered dose nasal spray (20 sources) Corticosteroid Start: 06-20-2024 Start: 08-10-2023 take 2 spray(s) by [facility] once daily fluticasone (FLONASE) 50 mcg/actuation nasal spray Use 2 Sprays in each nostril once daily. Rinse mouth after use. 1 Each 08/10/2023 Active Start: 03-12-2010 End: 07-28-2017 take 2 spray(s) nasal route once daily FLONASE 50 MCG/ACT SUSP 2spray/nostril daily FLUTICASONE PROPIONATE [id number] Angelika De La Torre LPN Comment on above: Use 2 Sprays in each nostril once daily. Rinse mouth after use. glucose 0.4 mg/mg oral gel (20 sources) Start: 06-07-2025 Start: 06-12-2022 End: 11-24-2023 Start: 06-12-2022 End: 11-24-2023 Dextrose (Glutose-15) 40 % g el Discontinued 15 g PO Q15M as needed for Blood Sugar June 12, 2022 12:00am November 24, 2023 3:09pm until symptoms of low blood sugar are controlled Start: 06-12-2022 End: 11-24-2023 3 ml insulin glargine 100 unt/ml pen injector (20 sources) Insulin Analog Start: 04-07-2023 End: 04-07-2023 insulin glargine (LANTUS SOLOSTAR U-100 INSULIN) 100 unit/mL (3 mL) Inject 60 Units subcutaneously daily at bedtime. 5 Each 04/07/2023 Active Start: 01-29-2023 End: 11-24-2023 Start: 01-29-2023 End: 11-24-2023 Insulin Glargine (Lantus Eliana ostar U-100 Insulin) 100 unit/mL (3 mL) [...] 2021 12:32pm diabetes Start: 06-14-2016 End: 06-23-2021 Start: 06-14-2016 End: 03-20-2017 inject 16 [IU] by subcutaneous injection at bedtime Insulin Glargine (Lantus) 100 UNIT/ML Ml Discontinued 16 U SQ AT BEDTIME June 14, 2016 12:00am March 20, 2017 9:43am Start: 08-14-2010 LANTUS SOLN 50 units at bedtime INSULIN GLARGINE SOLN [id number] Brenda Arthur MD Start: 03-10-2010 LANTUS SOLOSTA R SOPN 42 units at bedtimes INSULIN GLARGINE SOLN [id number] Brenda Arthur MD LANTUS SOLN 42 u nits at bedtime INSULIN GLARGINE SOLN [id number] Brenda Arthur MD LANTUS SOLOSTAR SOPN 32 units at bedtimes INSULIN GLARGINE SOLN [id number] Beth Doyle MA Comment on above: Inject [...] (3 mL) Insulin Pen (20 sources) Start: 06-01-2025 Insulin Glargi ne-Yfgn 100 unit/mL (3 mL) Insulin Pen Active 30 U SC TWICE A DAY 0 0 June 01, 2025 12:00am Start: 08-19-2024 End: 06-01-2025 Insulin Glargine-Yfgn 100 un it/mL (3 mL) Insulin Pen Discontinued 48 U SC TWICE A DAY August 19, 2024 12:00am June 01, 2025 12:08pm Start: 08-19-2024 Insulin Glargi ne-Yfgn 100 unit/mL (3 mL) Insulin Pen Active 48 U SC TWICE A DAY August 19, 2024 12:00am Start: 01-05-2024 End: 08-19-2024 Insulin Glargine-Yfgn 100 un it/mL (3 mL) Insulin Pen Discontinued 35 U SC AT BEDTIME 0 0 January 05, 2024 12:00am August 19, 2024 10:47pm Start: 01-05-2024 End: 08-19-2024 Insulin Glargine-Yfgn 100 un it/mL (3 mL) Insulin Pen Discontinued 35 U SC WITH BREAKFAST 0 0 January 05, 2024 12:00am August 19, [...] 24, 2023 1:00am January 05, 2024 11:17am 3 ml insulin lispro 100 unt/ ml pen injector (20 sources) Insulin Analog Start: 06-01-2025 Start: 06-01-2025 Insulin Lispro (Humalog Kwikpen Insulin) 100 unit/mL Insulin Pen Active 8 U SC THREE TIMES DAILY BEFORE MEALS 0 0 June 01, 2025 12:00am Start: 04-02-2024 End: 08-19-2024 Insulin Lispro (Humalog Kwik pen Insulin) 100 unit/mL Insulin Pen Discontinued 12 [...] SOLN a s directed INSULIN LISPRO SOLN [id number] Angelika De La Torre LPN insulin lispro ( HUMALOG KWIKPEN) 100 unit/mL Inject 15 Units subcutaneously three times daily before meals. Active Comment on above: Inject 14 Units subc utaneously w MEALS. Inject 15 Units subc utaneously three times daily before meals. levothyroxine sodium 0.137 m g oral tablet (20 sources) l-Thyroxine Start: 04-26-2025 Start: 08-19-2024 End: 04-26-2025 Start: 06-12-2022 Start: 05-21-2022 End: 06-12-2022 Start: 10-15-2020 End: 08-19-2024 Start: 04-05-2018 take 175 ug by mouth once daily Levothyroxine Active 175 MCG PO DAILY April 05, 2018 8:19pm Start: 07-28-2017 SYNTHROID TABS as directed LEVOTHYROXINE SODIUM TABS [id number] Angelika De La Torre LPN Start: 02-22-2015 End: 03-19-2016 Start: 08-14-2010 End: 07-28-2017 take 1 tablet by mouth once daily LEVOTHYROXINE SODIUM 75 MCG TABS One tablet by mouth daily LEVOTHYROXINE SODIUM [id number] Brenda Arthur MD Comment on above: Take [...] needed. magnesium citrate 58.2 mg/ml oral solution (20 sources) Start: Magnesium Hydroxide (13 sources) Start: take 1 mL by mouth once daily as needed for constipation Magnesium Hydroxide (Dulcolax (Magnesium Hydroxide)) 400 mg/5 mL suspension Active 30 mL PO DAILY as needed for constipation August 19, 2024 12:00am melatonin 3 mg oral tablet (20 sources) Start: Start: 11-24-2023 take 1 tablet by dmitry th at bedtime as needed Melatonin 3 mg Tablet Active 3 mg PO AT BEDTIME NEEDED as needed for Insomnia 0 0 November 24, 2023 1:00am Start: 11-24-2023 24 hr metoprolol succinate 2 5 mg extended release oral tablet (20 sources) beta-Adrenergic Jorden Start: 05-21-2022 Start: 03-10-2010 End: 07-28-2017 METOPROLOL TARTRATE 25 MG TA BS 1/2 tablet orally twice daily METOPROLOL TARTRATE [id number] Angelika De La Torre LPN nitroglycerin 0.4 mg subling ual tablet (20 sources) Nitrate Vasodilator Start: 06-20-2024 Start: 06-20-2024 Nitroglycerin 0.4 mg tablet, sublingual Active 0.4 mg SL Q5M as needed for chest pain June 20, 2024 12:00am do not exceed 3 doses per episode Start: 09-09-2022 End: 11-24-2023 Start: 09-09-2022 End: 11-24-2023 Nitroglycerin 0.4 mg tablet, sublingual Discontinued 0.4 mg SL every 5 to 15 minutes September 09, 2022 1:00am November 24, 2023 3:09pm Start: 09-09-2022 End: 11-24-2023 Start: 09-09-2022 End: 11-24-2023 Nitroglycerin Discontinued 0 .4 MG SL every 5 to 15 minutes September 09, 2022 1:00am November 24, 2023 3:09pm ondansetron 4 mg disintegrat ing oral tablet (20 sources) Serotonin-3 Receptor Antagonist Start: 07-08-2024 End: 01-30-2025 Start: 03-24-2024 End: 04-02-2024 Start: 03-24-2024 End: 08-19-2024 Start: 03-24-2024 End: 04-02-2024 take 1 tablet by mouth every six hours as needed for nausea and vomiting Ondansetron 4 mg tablet,disintegrating Discontinued 4 mg PO EVERY 6 HOURS as needed for nausea and vomiting 14 March 24, 2024 12:00am April 02, 2024 12:38pm Start: 10-09-2022 End: 11-19-2023 Start: 10-09-2022 End: 11-19-2023 take 1 tablet by mouth three times daily as needed for nausea and vomiting Ondansetron 4 mg tablet,disintegrating Discontinued 4 mg PO THREE TIMES A DAY as needed for nausea and vomiting October 09, 2022 4:34am November 19, 2023 11:39am pantoprazole 40 mg delayed r elease oral tablet (20 sources) Proton Pump Inhibitor Start: 06-12-2022 Start: 06-12-2022 End: 06-22-2023 take 1 tablet by mouth twice daily before mealtime pantoprazole DR (PROTONIX) 40 mg tablet Indications: Globus sensation , Gastroesophageal reflux disease, unspecified whether esophagitis present Take 1 tablet by mouth twice daily. Take on empty stomach, 1/2 hr before meal. 60 tablet 2 03/24/2023 Active Start: 06-03-2015 End: 12-10-2017 Comment on above: [...] 12:00am promethazine hydrochloride 25 mg oral tablet (20 sources) Phenothiazine Start: 06-20-2024 QUEtiapine 25 mg oral tablet (20 sources) Atypical Antipsychotic Start: 01-30-2025 take 1 tablet by mouth at bedtime Quetiapine 25 mg tablet Active 25 mg PO AT BEDTIME January 30, 2025 2:05pm Start: 01-29-2023 End: 01-30-2025 Start: 01-29-2023 End: 01-30-2025 Quetiapine 25 mg tablet Disc ontinued 37.5 mg PO AT BEDTIME January 29, 2023 12:00am January 30, 2025 2:10pm Start: 01-29-2023 Start: 01-29-2023 take 37.5 mg [...] 2022 2:46pm sleep Start: 06-20-2021 End: 09-09-2022 12 hr ranolazine [...] Serotonin-1b and Serotonin-1d Receptor Agonist Start: 12-27-2017 Comment on above: TAKE 1 TABLET BY DMITRY TH needed for FOR MIGRAINE headache. February repeat every 2 (TWO) hours as needed [...] by dmitry once daily. (20 sources) Start: 06-07-2025 Start: 06-01-2025 Start: 08-19-2024 End: 06-01-2025 Start: 08-19-2024 Start: 01-05-2024 End: 08-19-2024 Start: 01-05-2024 End: 08-19-2024 Start: 01-05-2024 Start: 11-24-2023 End: 01-05-2024 Start: 11-24-2023 End: 01-05-2024 Start: 11-24-2023 End: 01-01-2024 Start: 04-24-2022 End: 11-19-2023 Start: 06-23-2021 End: 11-24-2023 Start: 06-23-2021 Completed/Discontinued Medications Medication Drug Class(es) Dates Sig (Normalized) Sig (Original) acetaminophen 325 mg / oxyCODONE hydrochloride 5 mg oral tablet (20 sources) Opioid Agonist Start: 05-26-2025 End: 06-01-2025 take 1 tablet by mouth every six hours as needed for pain Oxycodone-Acetamino phen 5-325 mg tablet Active 1 {tbl} PO EVERY 6 HOURS NEEDED as needed for Pain 12 3 0 June 01, 2025 Infected lip laceration Laceration without foreign body of lip, initial encounter Local infection of the skin and subcutaneous tissue, unspecified Start: 05-23-2025 End: 06-11-2025 Start: 05-23-2025 End: 06-01-2025 Oxycodone-Acetaminophen 5-32 5 mg tablet Discontinued 1 {tbl} PO .every4 hours as needed for pain 100 30 0 May 23, 2025 June 21, 2025 12:00am June 01, 2025 12:09pm Acute pain associated with herpes zoster Zoster without complications Start: 04-18-2025 End: 05-18-2025 Oxycodone-Acetaminophen 5-32 5 mg tablet Discontinued 1 {tbl} PO .every4 hours as needed for pain 60 30 0 April 18, 2025 May 17, 2025 12:00am May 18, 2025 12:08am Acute pain associated with herpes zoster Zoster without complications Start: 01-30-2025 End: 05-18-2025 Start: 01-30-2025 End: 04-18-2025 Oxycodone-Acetaminophen 5-32 5 [...] 10-19-2019 End: 10-22-2019 Start: 10-19-2019 End: 10-22-2019 Oxycodone-Acetaminophen 1 TA [...] 01-08-2019 End: 01-11-2019 Start: 01-08-2019 End: 01-11-2019 Oxycodone-Acetaminophen 1 TA [...] 08, 2019 12:00am January 11, 2019 12:08am ALPRAZolam 0.5 mg oral table t (20 sources) Benzodiazepine Start: 03-20-2022 End: 11-30-2022 Start: 03-20-2022 End: 11-30-2022 take 1 tablet by mouth once daily Alprazolam 0.5 mg tablet Discontinued 0.5 mg PO DAILY June 09, 2022 4:15pm June 12, 2022 2:55pm mood End: 08-14-2010 XANAX 0.5 MG TABS 2 tablets once daily as needed for anxiety attacks ALPRAZOLAM [id number] Beth Felix Angle SARITA Alum-Mag Hydroxide-Simeth (Mylanta Maximum Strength) 400-400-40 mg/5 mL Suspension (16 sources) Start: 04-24-2022 End: 11-19-2023 take 1 [...] TABS one tablet by mouth daily ASPIRIN [id number] Brenda Arthur MD Comment on above: DAILY@0800 azithromycin 250 mg oral tablet (1 source) Macrolide Antimicrobial Start: 07-28-2017 AZITHROMYCIN 250 MG TABS 2 tablets today, then 1 tablet daily on days 2 through 11 AZITHROMYCIN [id number] Michael REYNOLDS 168 hr buprenorphine 0.02 mg/hr transdermal system (20 sources) Partial Opioid Agonist Start: 08-19-2024 End: 01-30-2025 Start: 03-24-2024 End: 08-19-2024 busPIRone hydrochloride 10 mg oral tablet (2 sources) Start: 03-10-2010 End: 08-14-2010 take 1 tablet by mouth twice daily BUSPAR 10 MG TABS One tablet by mouth twice daily BUSPIRONE HCL [id number] Brenda Arthur MD cholecalciferol 0.05 mg chewable tablet (6 sources) Vitamin D Start: 12-26-2019 End: 06-14-2023 take 1 tablet by mouth once daily cholecalciferol, vitamin D3, 2,000 unit chew Take 1 tablet by mouth once daily. 30 tablet 11 12/26/2019 04/07/2023 Discontinued (Other) Comment on above: Take [facility] tablet [facility]. clindamycin 150 mg oral capsule (12 sources) Lincosamide Antibacterial Start: 05-26-2025 End: 06-01-2025 Start: 04-23-2023 End: 04-30-2023 take 1 capsule by mouth three times daily clindamycin (CLEOCIN) 300 mg capsule Indications: Toothache Take 1 capsule by mouth three times daily for 7 days. 21 capsule 0 04/23/2023 04/30/2023 Active Comment on above: Take 1 capsule by mo [facility] three times daily for 7 days. furosemide 20 mg oral tablet (20 sources) Loop Diuretic Start: 06-20-2024 End: 08-19-2024 gabapentin 300 mg oral capsule (20 sources) Anti-epileptic Agent Start: 11-05-2022 take 100 mg by mouth once daily Gabapentin Active 100 MG PO DAILY November 05, 2022 1:00am @ 1300. Start: 11-05-2022 End: 11-19-2023 Start: 11-05-2022 End: 11-19-2023 take 2 capsules by mouth twice daily Gabapentin 300 mg capsule Discontinued 600 mg PO TWICE A DAY February 11, 2023 1:31pm November 19, 2023 11:39am Start: 11-05-2022 End: 11-19-2023 Start: 11-05-2022 Start: 03-24-2022 take 300 mg by mouth three times daily at mealtime Gabapentin Active 300 MG PO 3 TIMES DAILY WITH MEALS 60 March 23, 2022 11:00pm hydrocortisone 10 mg/ml / neomycin 3.5 mg/ml / polymyxin b 26866 unt/ml otic suspension (20 sources) Aminoglycoside Antibacterial, Polymyxin-class Antibacterial, Corticosteroid Start: 08-14-2017 End: 12-10-2017 Start: 08-14-2017 End: 12-10-2017 Dverfhjq-Ysmpylwff-Oz 10 ML drops,suspension Discontinued 4 NMA OT [...] SC DAILY 0 March 24, 2022 12:00am insulin lispro (HUMALOG KWIKPEN) 100 unit/mL (10 [...] scale INSULIN ASPART PROT & ASPART SUSP [id number] Beth Doyle MA 3 ml insulin, aspart, human 100 unt/ml pen injector (2 sources) Insulin Analog Start: 03-10-2010 End: 07-28-2017 NOVOLOG FLEXPEN SOLN 12 units SC at breakfast, 10 units SC at lunch, 10 units SC at supper INSULIN ASPART SOLN [id number] Angelika De La Torre LPN levoFLOXacin 750 mg oral tablet (20 sources) Quinolone Antimicrobial Start: 08-16-2017 End: 12-10-2017 lidocaine 0.04 mg/mg medicated patch (20 sources) Antiarrhythmic, Amide Local Anesthetic Start: 04-24-2022 End: 11-19-2023 Start: 03-24-2022 apply 1 dose topical ly [...] TABS One tablet by mouth daily LISINOPRIL [id number] Brenda Arthur MD LORazepam 0.5 mg oral tablet (20 sources) Benzodiazepine Start: End: Start: 01-29-2023 End: 12-23-2024 Start: 01-29-2023 End: 12-23-2024 take 1 tablet by mouth every twelve hours Lorazepam 0.5 mg tablet Discontinued 0.5 mg PO Q12H January 29, 2023 12:00am October 26, 2024 12:43pm anxeity Start: 11-17-2022 End: 12-30-2022 Start: 11-17-2022 End: 12-30-2022 take 1 tablet by mouth every six hours as needed for anxiety Lorazepam 0.5 mg tablet Discontinued 0.5 mg PO Q12H 60 30 0 November 30, 2022 2:10pm December 29, 2022 1:00am December 30, 2022 1:04am Chronic anxiety Anxiety disorder, unspecified anxiety One tablet every 6 hours as needed for anxiety. Menthol / Zinc Oxide (15 sources) Start: 11-24-2023 End: 01-01-2024 Menthol-Zinc Oxide [...] Start: 11-24-2023 End: 01-01-2024 Menthol-Zinc Oxide (Calmosep charamine) 0.44-20.6 % Ointment Discontinued 1 APPLIC TOPICAL THREE TIMES A DAY 0 November 24, 2023 12:00am January 01, 2024 6:47pm midodrine hydrochloride 10 m g oral tablet (20 sources) alpha-Adrenergic Agonist Start: 09-09-2022 End: 01-30-2025 Start: 05-20-2022 End: 09-09-2022 Start: 05-20-2022 End: [...] hours of sleep mirtazapine 15 mg oral table t (20 sources) Start: 09-09-2022 End: 01-01-2024 Start: 09-09-2022 End: 01-01-2024 take 7.5 mg by mouth at bedtime Mirtazapine 15 mg tabl et Discontinued 7.5 mg PO AT BEDTIME September [...] affected ar ea three times daily. nystatin [id number] unt/ml oral suspension (20 sources) Polyene Antifungal Start: 06-20-2024 End: 01-30-2025 Start: 06-20-2024 End: 01-30-2025 take 1 mL by mouth three times daily Nystatin 100,000 unit/mL suspension Discontinued 1 mL PO THREE TIMES A DAY 21 7 1 June 20, 2024 12:00am January 30, 2025 2:09pm swish and swallow Start: 04-02-2024 End: 01-30-2025 Start: 04-02-2024 End: 01-30-2025 Nystatin (Nyamyc) 100,000 un it/gram powder Discontinued 1 NMA TOPICAL TWICE A DAY April 02, 2024 12:00am January 30, 2025 2:09pm Start: 11-24-2023 End: 01-01-2024 Start: 11-24-2023 End: 01-01-2024 Nystatin (Nyamyc) 100,000 un it/gram Powder Discontinued 1 NMA TOPICAL TWICE A DAY 0 November 24, 2023 1:00am January 01, 2024 7:49pm Please contact the information source for Protocol details. Start: 11-24-2023 End: 01-01-2024 Start: 11-24-2023 End: 01-01-2024 Nystatin (Nyamyc) 100,000 un it/gram Powder Discontinued 1 APPLIC TOPICAL TWICE A DAY 0 October 31st, 2024 1:00am January 01, 2024 7:49pm omeprazole 20 [...] End: 04-02-2024 Start: 03-20-2017 End: 12-27-2017 Start: 03-20-2017 End: 12-27-2017 take 1 tablet by mouth every eight hours as needed for pain Oxycodone 5 MG tablet Discontinued 5 mg PO Q8H as needed for Severe Pain () 10 March 20, 2017 12:00am December 27, 2017 10:11pm Start: 01-20-2012 take 1 tablet by dmitry th four times daily as needed OXYCODONE HCL 30 MG TABS One tablet by mouth four times daily PRN OXYCODONE HCL [id number] Yaw Cabrera MD polyethylene glycol 3350 170 00 mg powder for oral solution (20 sources) Osmotic Laxative Start: 03-27-2022 End: 11-19-2023 microencapsulated potassium chloride 20 meq extended release oral tablet (20 sources) Start: 11-24-2023 End: 01-30-2025 sulfamethoxazole 800 mg / trimethoprim 160 mg oral tablet (20 sources) Dihydrofolate Reductase Inhibitor Antibacterial, Sulfonamide Antimicrobial Start: 02-28-2021 End: 05-13-2021 Start: 02-28-2021 End: 05-13-2021 Sulfamethoxazole-Trimethopri m (Bactrim Ds) 800-160 mg tablet Discontinued 1 {tbl} PO DAILY 14 14 0 February 28, 2021 12:00am May 13, 2021 10:50am Start: 02-28-2021 End: 05-13-2021 triamcinolone acetonide 1 mg/ml topical cream (1 source) Corticosteroid Start: 08-14-2010 End: 08-28-2010 TRIAMCINOLONE ACETONIDE 0.1 % CREA affected area twice daily TRIAMCINOLONE ACETONIDE [id number] Brenda Arthur MD CHOLECALCIFEROL CAPS (1 source) Start: 07-28-2017 VITAMIN D CAPS as directed CHOLECALCIFEROL CAPS [id number] Angelika De La Torre LPN Problems Active [...] Coronary atherosclerosis; Translations: [Atherosclerotic heart disease of [place] coronary artery without angina pectoris] Onset: 5 Chronic Deficiency and other anemia (1 source) Normocytic normochromic anemia; Translations: [Anemia, unspecified] Episodic Deficiency and other anemia (1 source) Anemia, unspecified; Translations: [Anemia, unspecified] Episodic Diabetes mellitus with complications (20 sources) Type 1 diabetes mellitus uncontrolled; Translations: [Hyperglycemia due to diabetes mellitus] Onset: 4 03-10-2010 Chronic Diabetes mellitus without complication (20 sources) Diabetes mellitus; Translations: [Type 2 diabetes mellitus without complications] Chronic Diabetes mellitus without complication (20 sources) Hyperglycemia; Translations: [Hyperglycemia, unspecified] 04-08-2019 Episodic Diseases of mouth; excluding dental (20 sources) Abscess of lip; Translations: [Diseases of lips] Onset: 5 05-30-2025 Episodic Disorders of lipid metabolism (20 sources) [...] status migrainosus] 04-08-2019 Chronic Headache; including migraine (20 sources) Headache; Translations: [Headache] 04-01-2024 Episodic Immunizations and screening for infectious disease (4 sources) Patient encounter status; Translations: [Encounter for immunization] Episodic Intestinal obstruction without hernia (20 sources) Fecal impaction; Translations: [Fecal impaction of rectum] 03-28-2023 Episodic Malaise and fatigue (1 source) Asthenia; Translations: [Weakness] Episodic Nausea and vomiting (20 sources) Vomiting; Translations: [Vomiting, unspecified] 08-03-2019 Episodic Nonspecific chest pain (20 sources) Atypical chest pain; Translations: [Chest pain] Onset: 0 Resolved: 0 08-14-2010 Episodic Nutritional deficiencies (20 sources) Vitamin D deficiency; Translations: [Vitamin D deficiency, unspecified] Onset: 0 12-26-2019 Chronic Open wounds of head; neck; and trunk (20 sources) Laceration of lip ; Translations: [Laceration without foreign body of lip, initial encounter] Onset: 5 05-26-2025 Episodic Other aftercare (20 sources) Long-term current use of anticoagulant; Translations: [group home (current) use of anticoagulants] 01-20-2024 Episodic Other [...] Onset: 8 09-15-2017 Chronic Other endocrine disorders (20 sources) Hypoglycemia; Translations: [Hypoglycemia, unspecified] 04-10-2024 Chronic Other gastrointestinal disorders (20 sources) Constipation; Translations: [Constipation, unspecified] Onset: 5 Resolved: 5 03-28-2023 Episodic Other gastrointestinal disorders (1 source) Acute constipation; Translations: [Constipation, unspecified] Episodic Other gastrointestinal disorders (20 sources) Diarrhea; Translations: [Diarrhea, unspecified] 11-19-2023 Episodic Other gastrointestinal disorders (12 sources) Diarrhea, unspecified; Translations: [Diarrhea] 11-19-2023 Episodic Other hematologic conditions (1 source) [...] Episodic Other nutritional; endocrine; and metabolic disorders (2 sources) Personal history of other endocrine, nutritional and metabolic disease; Translations: [Personal history of other endocrine, metabolic, and immunity disorders] Onset: 5 Episodic Pulmonary heart disease (20 sources) Pulmonary embolism; Translations: [Other pulmonary embolism without acute cor pulmonale] 01-01-2024 Episodic Residual codes; unclassified (20 sources) Hypersomnia; Translations: [Hypersomnia, unspecified] 12-17-2022 Chronic Residual codes; unclassified (20 sources) Bilateral lower limb edema; Translations: [Localized edema] 09-09-2022 Episodic Residual codes; unclassified (17 sources) Localized edema; Translations: [Edema] Episodic Residual codes; unclassified (2 sources) Edema, unspecified; Translations: [Edema, unspecified] Onset: 5 Episodic Skin and subcutaneous tissue infections (20 sources) Cellulitis of lower leg; Translations: [Cellulitis of right lower limb] Onset: 5 05-27-2018 Episodic Spondylosis; intervertebral disc disorders; other back problems (20 sources) Degeneration of lumbar intervertebral disc; Translations: [Other intervertebral disc degeneration, lumbar region] Onset: 5 03-12-2015 Chronic Spondylosis; intervertebral disc disorders; other back problems (20 sources) Radiculopathy due to lumbar intervertebral disc disorder; Translations: [Intervertebral disc disorders with radiculopathy, lumbar region] Onset: 9 Episodic Sprains and strains (20 sources) Low back [...] (1 source) Unknown / UNK(Unknown) Onset: 8 Viral infection (18 sources) Acute herpes zoster neuropathy; Translations: [Zoster without complications] 04-18-2025 Episodic Past or Other Problems Problem Classification Problem Date Documented Date Episodic/Chronic Abdominal pain (20 sources) Left flank pain; Translations: [Unspecified abdominal pain] Onset: 05-15-2014 Resolved: 06-03-2015 11-02-2018 Episodic Acute and unspecified renal failure (20 sources) Injury of kidney; Translations: [Acute kidney failure, unspecified] Onset: 11-21-2018 11-21-2018 Episodic Allergic reactions (20 sources) Eczema; Translations: [Dermatitis, unspecified] Onset: 12-26-2019 12-26-2019 Episodic Cardiac dysrhythmias (20 sources) Palpitations; Translations: [Palpitations] Onset: 01-30-2025 02-11-2023 Episodic Chronic obstructive pulmonary disease and bronchiectasis (1 source) Bronchitis; Translations: [Bronchitis, not specified as acute or chronic] Onset: 07-28-2017 07-28-2017 Episodic Deficiency and other anemia (12 sources) Anemia; Translations: [Anemia, unspecified] Onset: 03-12-2015 Resolved: 02-27-2016 02-27-2016 Episodic Intestinal infection (2 sources) Infectious gastroenteritis and colitis, unspecified; Translations: [Infectious gastroenteritis and colitis, unspecified] Onset: 11-03-2024 Episodic Mood disorders (20 sources) Depressive disorder; [...] 06-22-2017 06-22-2017 Episodic Other connective tissue disease (12 sources) Trigger thumb of left hand; Translations: [Trigger thumb, left thumb] Onset: 07-23-2015 Resolved: 01-27-2017 01-27-2017 Episodic Other connective tissue disease (2 sources) Muscle wasting and atrophy, not elsewhere classified, right lower leg; Translations: [Muscle wasting and atrophy, not elsewhere classified, right lower leg] Onset: 11-03-2024 Episodic Other inflammatory condition of skin (1 source) Pruritus of skin; Translations: [Pruritus, unspecified] Onset: 08-14-2010 08-14-2010 Episodic Other nervous system disorders (12 sources) Carpal tunnel syndrome of left wrist; Translations: [Carpal tunnel syndrome, left upper limb] Onset: 05-27-2015 Resolved: 01-27-2017 01-27-2017 Chronic Other nervous system disorders (12 [...] specified postprocedural states] Onset: 04-24-2022 06-09-2022 Episodic Comment on above: LEFT MAIN: Mild calc ification, Angiographically normal; LEFT ANTERIOR DESCENDING ARTERY: MID LAD: Moderate luminal irregularities up to 50%; CIRCUMFLEX ARTERY:MID CIRC: Moderate luminal irregularities up to 50%; RIGHT CORONARY ARTERY: Mild luminal irregularities; per cardiac cath Dr. Lombardo 05/21/22denies having done. Unclassified (20 sources) Readiness finding; Translations: [Desire [...] Test Name Value Interpretation Reference Range Facility TSH DL <= 0.005 mIU/L QnOrde red By: Lizet Linares on 06-11-2025 TSH Qn 3.570 uIU/mL 0.300-4.20 0 [facility] Bilirubin directOrdered By: Lizet Linares on 06-04-2025 Bilirubin.direct [Mass/Vol] 0.16 mg/dL 0.00-0.30 [facility] Bilirubin, totalOrdered By: Lizet Linares on 06-04-2025 Bilirubin [Mass/Vol] 0.35 mg/dL 0.00-1.30 [facility] - Chemistry and C hemistry - challengeOrdered By: Lizet Linares on 06-04-2025 AST [Catalytic activity/Vol] 34 U/L High <32 [facility] No Panel InformationOrdered By: Lizet Linares on 06-04-2025 34 U/L High <32 [facility] Serum globulin measurementOr dered By: Lizet Linares on 06-04-2025 Globulin (S) [Mass/Vol] 3.0 g/dL 2.2-4.2 [facility] Serum or plasma alanine russo otransferase (ALT) measurementOrdered By: Lizet Linares on 06-04-2025 ALT [Catalytic activity/Vol] 18 U/L <35 [facility] Serum or plasma albumin tai urement (mass/volume)Ordered By: Lizet Linares on 06-04-2025 Albumin [Mass/Vol] 3.5 g/dL 3.4-4.8 [facility] Serum or plasma alkaline shante sphatase measurementOrdered By: Lizet Linares on 06-04-2025 ALP [Catalytic activity/Vol] 43 U/L 35-104 [facility] Total proteinOrdered By: Bart manjindernatasha Linares on 06-04-2025 Protein [Mass/Vol] 6.5 g/dL 5.9-8.4 [facility] Absolute lymphocyte countOrd ered By: John Shaw on 06-01-2025 Lymphocytes Auto (Unsp spec) [#/Vol] 2.63 10*3/uL 0.83-4.51 [facility] Absolute neutrophil countOrd ered By: John Shaw on 06-01-2025 Neutrophils (Bld) [#/Vol] 3.9 10*3/uL 2.0-7.7 [facility] Anion gap in Serum or Plasma Ordered By: John Shaw on 06-01-2025 Anion gap [Moles/Vol] 11 mmol/L 5-15 [facility] Automated lymphocyte count a s percentage of total leukocytesOrdered By: John Shaw on 06-01-2025 Lymphocytes/100 WBC Auto (Unsp spec) 35.9 % 19-41 [facility] BUN/creatinine ratioOrdered By: John Shaw on 06-01-2025 Urea nitrogen/Creatinine [Mass ratio] 17.9 mg/mg 10-20 [facility] Basophil percentageOrdered B y: John Shaw on 06-01-2025 Basophils/100 WBC (Bld) 1.0 % 0-1 [facility] Carbon dioxide, total [Moles /volume] in Central venous bloodOrdered By: John Shaw on 06-01-2025 CO2 [Moles/Vol] 22.5 mmol/L 21.0-32.0 [facility] Chloride assayOrdered By: Albert Shaw on 06-01-2025 Chloride [Moles/Vol] 101 mmol/L 98-108 [facility] Eosinophil percentageOrdered By: John Shaw on 06-01-2025 Eosinophils/100 WBC (Bld) 2.7 % 0-5 [facility] Erythrocyte distribution wid th ratioOrdered By: John Sahw on 06-01-2025 Erythrocyte distribution width (RBC) [Ratio] 15.0 % High 11.6-14.6 [facility] Erythrocyte distribution wid th standard deviationOrdered By: John Shaw on 06-01-2025 Erythrocyte distribution width (RBC) [Ratio] 48.1 fl High 35.1-43.9 [facility] Glomerular filtration rate ( GFR) estimation/1.73 sq m using serum, plasma, or whole bOrdered By: John Shaw on 06-01-2025 GFR/1.73 sq M.predicted among non-blacks MDRD (S/P/Bld) [Vol rate/Area] 54 mL/min/{1.73_m2} Low >60 [facility] Comment on above: mL/min/1.73m2 CKD-EP I Creatinine Equation (2020) [facility] deOrdered By: John Shaw on 06-01-2025 Glucose [Mass/Vol] 204 mg/dL High 74-106 [facility] Comment on above: MANAGEMENT OF PATIEN T CARE PER NURSING PROTOCOL Hematocrit Auto (Bld) [Volum e fraction]Ordered By: John Shaw on 06-01-2025 Hematocrit (Bld) [Volume fraction] 34.7 % Low 37-47 [facility] Hemoglobin measurementOrdere d By: John Shaw on 06-01-2025 Hemoglobin (Bld) [Mass/Vol] 10.7 g/dL Low 12.0-15.0 [facility] Immature granulocytes/100 WB C Auto (Bld)Ordered By: John Shaw on 06-01-2025 Immature granulocytes/100 WBC (Bld) 1.400 % High 0.0-0.9 [facility] Comment on above: IG% - Immature Granu locytes (promyelocytes, myelocytes and metamyelocytes) > 1% indicates that a LEFT SHIFT is Present. MCV (mean corpuscular volume ) determinationOrdered By: John Shaw on 06-01-2025 MCV (RBC) [Entitic vol] 88.7 fL 81-99 [facility] Mean corpuscular hemoglobin (MCH) determinationOrdered By: John Shaw on 06-01-2025 MCH (RBC) [Entitic mass] 27.4 pg 27.0-32.0 [facility] Mean corpuscular hemoglobin concentration (MCHC) determinationOrdered By: John Shaw on 06-01-2025 MCHC (RBC) [Mass/Vol] 30.8 g/dL Low 32-36 [facility] Mean platelet volume determi nationOrdered By: John Shaw on 06-01-2025 Platelet mean volume (Bld) [Entitic vol] 9.3 fL 6.2-12.0 [facility] Monocyte percentageOrdered B y: John Shaw on 06-01-2025 Monocytes/100 WBC (Bld) 5.5 % 0-10 [facility] Neutrophil percentageOrdered By: John Shaw on 06-01-2025 Neutrophils/100 WBC (Bld) 53.5 % 47-70 [facility] Nucleated red blood cell per centageOrdered By: John Shaw on 06-01-2025 Nucleated RBC/100 WBC (Bld) [Ratio] 0 % 0-5 [facility] Platelet countOrdered By: Albert Shaw on 06-01-2025 Platelets (Bld) [#/Vol] 384 10*3/uL 150-450 [facility] Potassium measurement (mass/ volume)Ordered By: John Shaw on 06-01-2025 Potassium (Unsp spec) [Mass/Vol] 4.1 mmol/L 3.3-5.1 [facility] RBC Auto (Bld) [#/Vol]Ordere d By: John Shaw on 06-01-2025 RBC (Bld) [#/Vol] 3.91 10*6/uL Low 4.2-5.4 [facility] Serum creatinine measurement (mass/volume)Ordered By: John Shaw on 06-01-2025 Creatinine [Mass/Vol] 1.16 mg/dL 0.70-1.20 [facility] Serum glucose measurement (m ass/volume)Ordered By: John Shaw on 06-01-2025 Glucose [Mass/Vol] 181 mg/dL High 70-99 [facility] Serum or plasma calcium tai urement (mass/volume)Ordered By: John Shaw on 06-01-2025 Calcium [Mass/Vol] 9.1 mg/dL 7.6-11.0 [facility] Serum or plasma urea nitroge n measurement (mass/volume)Ordered By: John Shaw on 06-01-2025 Urea nitrogen [Mass/Vol] 21 mg/dL High 4-19 [facility] Sodium levelOrdered By: David Shaw on 06-01-2025 Sodium [Moles/Vol] 135 mmol/L 133-145 [facility] Trough vancomycin levelOrder ed By: Juan Chiang on 06-01-2025 Vancomycin trough [Mass/Vol] 17.6 ug/mL High 5.0-15.0 [facility] Comment on above: Recommended goal tro ugh ranges are generally 10-15 mcg/ml for less severe/complicated infections such as cellulitis or UTI and 15-20 mcg/ml for more severe/complicated infections such as bacteremia/sepsis, osteomyelitis, pneumonia or meningitis. Goal trough ranges should take into account indication, patient-specific factors and organism JOSEFINA.VANCOMYCIN STANDARED DRUG THERAPY TROUGH LEVEL: 5.0 - 15.0 mg/L VANCOMYCIN HIGH INTENSITY THERAPY TROUGH LEVEL: 15.0 - 20.0 mg/L High Intensity therapy recommended for serious lifethreatening infections include:- Bchcswmtil-Hfwrpgcpeory-Cwaltvlmg (Ventilator/Healtcare Associated)-Sepsis PLEASE CONTACT PHARMACY SERVICES (#2863) FOR INTERPRETATIONOF RESULTS. White blood cell (WBC) count Ordered By: John Shaw on 06-01-2025 WBC (Bld) [#/Vol] 7.3 10*3/uL 4.4-11.0 [facility] Gram stainOrdered By: Juan Whatley on 05-30-2025 Microscopic observation Gram stain Nom (Unsp spec) [facility] Magnesium measurement (mass/ volume)Ordered By: John Shaw on 05-30-2025 Magnesium (Unsp spec) [Mass/Vol] 2.2 mg/dL 1.5-2.2 [facility] Routine wound cultureOrdered By: Juan Whatley on 05-30-2025 Microbial culture, routine Meth. resistant Staph. aureus Abnormal [facility] Absolute lymphocyte countOrd ered By: Delores Moya on 05-28-2025 Lymphocytes Auto (Unsp spec) [#/Vol] 1.82 10*3/uL 0.83-4.51 [facility] Absolute neutrophil countOrd ered By: Delores Moya on 05-28-2025 Neutrophils (Bld) [#/Vol] 4.1 10*3/uL 2.0-7.7 [facility] Anion gap in Serum or Plasma Ordered By: Delores Moya on 05-28-2025 Anion gap [Moles/Vol] 13 mmol/L 5-15 [facility] Automated lymphocyte count a s percentage of total leukocytesOrdered By: Delores Moya on 05-28-2025 Lymphocytes/100 WBC Auto (Unsp spec) 27.3 % 19-41 [facility] BUN/creatinine ratioOrdered By: Delores Moya on 05-28-2025 Urea nitrogen/Creatinine [Mass ratio] 17.7 mg/mg 10-20 [facility] Basophil percentageOrdered B y: Delores Moya on 05-28-2025 Basophils/100 WBC (Bld) 0.7 % 0-1 [facility] Blood cultureOrdered By: Victoria Moya on 05-28-2025 Bacteria identified Cx Nom (Bld) No growth in 5 days. [facility] Bacteria identified Cx Nom (Bld) No growth in 5 days. [facility] Carbon dioxide, total [Moles /volume] in Central venous bloodOrdered By: Delores Moya on 05-28-2025 CO2 [Moles/Vol] 22.7 mmol/L 21.0-32.0 [facility] Chloride assayOrdered By: Edis Moya on 05-28-2025 Chloride [Moles/Vol] 97 mmol/L Low 98-108 [facility] Eosinophil percentageOrdered By: Delores Moya on 05-28-2025 Eosinophils/100 WBC (Bld) 1.3 % 0-5 [facility] Erythrocyte distribution wid th ratioOrdered By: Delores Moya on 05-28-2025 Erythrocyte distribution width (RBC) [Ratio] 14.7 % High 11.6-14.6 [facility] Erythrocyte distribution wid th standard deviationOrdered By: Delores Moya on 05-28-2025 Erythrocyte distribution width (RBC) [Ratio] 46.3 fl High 35.1-43.9 [facility] Glomerular filtration rate ( GFR) estimation/1.73 sq m using serum, plasma, or whole bOrdered By: Delores Moya on 05-28-2025 GFR/1.73 sq M.predicted among non-blacks MDRD (S/P/Bld) [Vol rate/Area] 42 mL/min/{1.73_m2} Low >60 [facility] Comment on above: mL/min/1.73m2 CKD-EP I Creatinine Equation (2020) [facility] deOrdered By: Chavez Alcala on 05-28-2025 Glucose [Mass/Vol] 133 mg/dL High 74-106 [facility] Comment on above: MANAGEMENT OF PATIEN T CARE PER NURSING PROTOCOL Hematocrit Auto (Bld) [Volum e fraction]Ordered By: Delores Moya on 05-28-2025 Hematocrit (Bld) [Volume fraction] 35.1 % Low 37-47 [facility] Hemoglobin measurementOrdere d By: Delores Moya on 05-28-2025 Hemoglobin (Bld) [Mass/Vol] 11.2 g/dL Low 12.0-15.0 [facility] Immature granulocytes/100 WB C Auto (Bld)Ordered By: Delores Moya on 05-28-2025 Immature granulocytes/100 WBC (Bld) 0.300 % 0.0-0.9 [facility] Comment on above: IG% - Immature Granu locytes (promyelocytes, myelocytes and metamyelocytes) > 1% indicates that a LEFT SHIFT is Present. Lactic acid measurementOrder ed By: Delores Moya on 05-28-2025 Lactate [Moles/Vol] 1.2 mmol/L 0.0-2.0 [facility] MCV (mean corpuscular volume ) determinationOrdered By: Delores Moya on 05-28-2025 MCV (RBC) [Entitic vol] 86.2 fL 81-99 [facility] Mean corpuscular hemoglobin (MCH) determinationOrdered By: Delores Moya on 05-28-2025 MCH (RBC) [Entitic mass] 27.5 pg 27.0-32.0 [facility] Mean corpuscular hemoglobin concentration (MCHC) determinationOrdered By: Delores Moya on 05-28-2025 MCHC (RBC) [Mass/Vol] 31.9 g/dL Low 32-36 [facility] Mean platelet volume determi nationOrdered By: Delores Moya on 05-28-2025 Platelet mean volume (Bld) [Entitic vol] 9.3 fL 6.2-12.0 [facility] Monocyte percentageOrdered B y: Delores Moya on 05-28-2025 Monocytes/100 WBC (Bld) 8.7 % 0-10 [facility] Neutrophil percentageOrdered By: Delores Moya on 05-28-2025 Neutrophils/100 WBC (Bld) 61.7 % 47-70 [facility] Nucleated red blood cell per centageOrdered By: Delores Moya on 05-28-2025 Nucleated RBC/100 WBC (Bld) [Ratio] 0 % 0-5 [facility] Platelet countOrdered By: Edis Moya on 05-28-2025 Platelets (Bld) [#/Vol] 369 10*3/uL 150-450 [facility] Potassium measurement (mass/ volume)Ordered By: Delores Moya on 05-28-2025 Potassium (Unsp spec) [Mass/Vol] 4.1 mmol/L 3.3-5.1 [facility] RBC Auto (Bld) [#/Vol]Ordere d By: Delores Moya on 05-28-2025 RBC (Bld) [#/Vol] 4.07 10*6/uL Low 4.2-5.4 [facility] Serum creatinine measurement (mass/volume)Ordered By: Delores Moya on 05-28-2025 Creatinine [Mass/Vol] 1.43 mg/dL High 0.70-1.20 [facility] Serum glucose measurement (m ass/volume)Ordered By: Delores Moya on 05-28-2025 Glucose [Mass/Vol] 160 mg/dL High 70-99 [facility] Serum or plasma calcium tai urement (mass/volume)Ordered By: Delores Moya on 05-28-2025 Calcium [Mass/Vol] 8.9 mg/dL 7.6-11.0 [facility] Serum or plasma urea nitroge n measurement (mass/volume)Ordered By: Delores Moya on 05-28-2025 Urea nitrogen [Mass/Vol] 25 mg/dL High 4-19 [facility] Sodium levelOrdered By: Marck Moya on 05-28-2025 Sodium [Moles/Vol] 133 mmol/L 133-145 [facility] White blood cell (WBC) count Ordered By: Delores Moya on 05-28-2025 WBC (Bld) [#/Vol] 6.7 10*3/uL 4.4-11.0 [facility] Absolute lymphocyte countOrd ered By: Raúl Alejo on 05-26-2025 Lymphocytes Auto (Unsp spec) [#/Vol] 2.42 10*3/uL 0.83-4.51 [facility] Absolute neutrophil countOrd ered By: Raúl Alejo on 05-26-2025 Neutrophils (Bld) [#/Vol] 6.7 10*3/uL 2.0-7.7 [facility] Anion gap in Serum or Plasma Ordered By: Raúl Alejo on 05-26-2025 Anion gap [Moles/Vol] 12 mmol/L 5-15 [facility] Automated lymphocyte count a s percentage of total leukocytesOrdered By: Raúl Alejo on 05-26-2025 Lymphocytes/100 WBC Auto (Unsp spec) 24.6 % 19-41 [facility] BUN/creatinine ratioOrdered By: Raúl Alejo on 05-26-2025 Urea nitrogen/Creatinine [Mass ratio] 17.5 mg/mg 10-20 [facility] Basophil percentageOrdered B y: Raúl Alejo on 05-26-2025 Basophils/100 WBC (Bld) 0.4 % 0-1 [facility] Carbon dioxide, total [Moles /volume] in Central venous bloodOrdered By: Raúl Aljeo on 05-26-2025 CO2 [Moles/Vol] 22.0 mmol/L 21.0-32.0 [facility] Chloride assayOrdered By: Kwesi Alejo on 05-26-2025 Chloride [Moles/Vol] 98 mmol/L 98-108 [facility] Eosinophil percentageOrdered By: Raúl Alejo on 05-26-2025 Eosinophils/100 WBC (Bld) 0.6 % 0-5 [facility] Erythrocyte distribution wid th ratioOrdered By: Raúl Alejo on 05-26-2025 Erythrocyte distribution width (RBC) [Ratio] 14.6 % 11.6-14.6 [facility] Erythrocyte distribution wid th standard deviationOrdered By: Raúl Alejo on 05-26-2025 Erythrocyte distribution width (RBC) [Ratio] 45.9 fl High 35.1-43.9 [facility] Glomerular filtration rate ( GFR) estimation/1.73 sq m using serum, plasma, or whole bOrdered By: Raúl Alejo on 05-26-2025 GFR/1.73 sq M.predicted among non-blacks MDRD (S/P/Bld) [Vol rate/Area] 33 mL/min/{1.73_m2} Low >60 [facility] Comment on above: mL/min/1.73m2 CKD-EP I Creatinine Equation (2020) Hematocrit Auto (Bld) [Volum e fraction]Ordered By: Raúl Alejo on 05-26-2025 Hematocrit (Bld) [Volume fraction] 34.9 % Low 37-47 [facility] Hemoglobin measurementOrdere d By: Raúl Alejo on 05-26-2025 Hemoglobin (Bld) [Mass/Vol] 11.3 g/dL Low 12.0-15.0 [facility] Immature granulocytes/100 WB C Auto (Bld)Ordered By: Raúl Alejo on 05-26-2025 Immature granulocytes/100 WBC (Bld) 0.400 % 0.0-0.9 [facility] Comment on above: IG% - Immature Granu locytes (promyelocytes, myelocytes and metamyelocytes) > 1% indicates that a LEFT SHIFT is Present. MCV (mean corpuscular volume ) determinationOrdered By: Raúl Alejo on 05-26-2025 MCV (RBC) [Entitic vol] 85.7 fL 81-99 [facility] Mean corpuscular hemoglobin (MCH) determinationOrdered By: Raúl Alejo on 05-26-2025 MCH (RBC) [Entitic mass] 27.8 pg 27.0-32.0 [facility] Mean corpuscular hemoglobin concentration (MCHC) determinationOrdered By: Raúl Alejo on 05-26-2025 MCHC (RBC) [Mass/Vol] 32.4 g/dL 32-36 [facility] Mean platelet volume determi nationOrdered By: Raúl Alejo on 05-26-2025 Platelet mean volume (Bld) [Entitic vol] 9.1 fL 6.2-12.0 [facility] Monocyte percentageOrdered B y: Raúl Alejo on 05-26-2025 Monocytes/100 WBC (Bld) 6.3 % 0-10 [facility] Neutrophil percentageOrdered By: Raúl Alejo on 05-26-2025 Neutrophils/100 WBC (Bld) 67.7 % 47-70 [facility] Nucleated red blood cell per centageOrdered By: Raúl Alejo on 05-26-2025 Nucleated RBC/100 WBC (Bld) [Ratio] 0 % 0-5 [facility] Platelet countOrdered By: Kwesi Alejo on 05-26-2025 Platelets (Bld) [#/Vol] 349 10*3/uL 150-450 [facility] Potassium measurement (mass/ volume)Ordered By: Raúl Alejo on 05-26-2025 Potassium (Unsp spec) [Mass/Vol] 4.4 mmol/L 3.3-5.1 [facility] RBC Auto (Bld) [#/Vol]Ordere d By: Raúl Alejo on 05-26-2025 RBC (Bld) [#/Vol] 4.07 10*6/uL Low 4.2-5.4 [facility] Serum creatinine measurement (mass/volume)Ordered By: Raúl Alejo on 05-26-2025 Creatinine [Mass/Vol] 1.76 mg/dL High 0.70-1.20 [facility] Serum glucose measurement (m ass/volume)Ordered By: Raúl Alejo on 05-26-2025 Glucose [Mass/Vol] 243 mg/dL High 70-99 [facility] Serum or plasma calcium tai urement (mass/volume)Ordered By: Raúl Alejo on 05-26-2025 Calcium [Mass/Vol] 8.8 mg/dL 7.6-11.0 [facility] Serum or plasma urea nitroge n measurement (mass/volume)Ordered By: Raúl Alejo on 05-26-2025 Urea nitrogen [Mass/Vol] 31 mg/dL High 4-19 [facility] Sodium levelOrdered By: Raúl Alejo on 05-26-2025 Sodium [Moles/Vol] 132 mmol/L Low 133-145 [facility] White blood cell (WBC) count Ordered By: Raúl Alejo on 05-26-2025 WBC (Bld) [#/Vol] 9.9 10*3/uL 4.4-11.0 [facility] Absolute lymphocyte countOrd ered By: Lizet Linares on 05-07-2025 Lymphocytes Auto (Unsp spec) [#/Vol] 2.01 10*3/uL 0.83-4.51 [facility] Absolute neutrophil countOrd ered By: Lizet Linares on 05-07-2025 Neutrophils (Bld) [#/Vol] 3.3 10*3/uL 2.0-7.7 [facility] Anion gap in Serum or Plasma Ordered By: Lizet Linares on 05-07-2025 Anion gap [Moles/Vol] 12 mmol/L 5-15 [facility] Automated lymphocyte count a s percentage of total leukocytesOrdered By: Lizet Linares on 05-07-2025 Lymphocytes/100 WBC Auto (Unsp spec) 34.1 % 19-41 [facility] BUN/creatinine ratioOrdered By: Lizet Linares on 05-07-2025 Urea nitrogen/Creatinine [Mass ratio] 17.0 mg/mg 10-20 [facility] Basophil percentageOrdered B y: Lizet Linares on 05-07-2025 Basophils/100 WBC (Bld) 0.5 % 0-1 [facility] Carbon dioxide, total [Moles /volume] in Central venous bloodOrdered By: Lizet Linares on 05-07-2025 CO2 [Moles/Vol] 23.8 mmol/L 21.0-32.0 [facility] Chloride assayOrdered By: Junie Linares on 05-07-2025 Chloride [Moles/Vol] 99 mmol/L 98-108 [facility] Eosinophil percentageOrdered By: christabarranquitasnatasha Linares 05-07-2025 Eosinophils/100 WBC (Bld) 2.2 % 0-5 [facility] Erythrocyte distribution wid th ratioOrdered By: [facility] on 05-07-2025 Erythrocyte distribution width (RBC) [Ratio] 15.2 % High 11.6-14.6 [facility] Erythrocyte distribution wid th standard deviationOrdered By: [facility] on 05-07-2025 Erythrocyte distribution width (RBC) [Ratio] 50.5 fl High 35.1-43.9 [facility] Glomerular filtration rate ( GFR) estimation/1.73 sq m using serum, plasma, or whole bOrdered By: Lizet Linares on 05-07-2025 GFR/1.73 sq M.predicted among non-blacks MDRD (S/P/Bld) [Vol rate/Area] 37 mL/min/{1.73_m2} Low >60 [facility] Comment on above: mL/min/1.73m2 CKD-EP I Creatinine Equation (2020) Hematocrit Auto (Bld) [Volum e fraction]Ordered By: Lizet Linares 05-07-2025 Hematocrit (Bld) [Volume fraction] 34.0 % Low 37-47 [facility] Hemoglobin measurementOrdere d By: Lizet Linares 05-07-2025 Hemoglobin (Bld) [Mass/Vol] 10.4 g/dL Low 12.0-15.0 [facility] Immature granulocytes/100 WB C Auto (Bld)Ordered By: Lizet Linares on 05-07-2025 Immature granulocytes/100 WBC (Bld) 0.500 % 0.0-0.9 [facility] Comment on above: IG% - Immature Granu locytes (promyelocytes, myelocytes and metamyelocytes) > 1% indicates that a LEFT SHIFT is Present. MCV (mean corpuscular volume ) determinationOrdered By: Lizet Linares on 05-07-2025 MCV (RBC) [Entitic vol] 92.1 fL 81-99 [facility] Mean corpuscular hemoglobin (MCH) determinationOrdered By: Juniemarcelle Crossjntal on 05-07-2025 MCH (RBC) [Entitic mass] 28.2 pg 27.0-32.0 [facility] Mean corpuscular hemoglobin concentration (MCHC) determinationOrdered By: Lizet Crossjntal on 05-07-2025 MCHC (RBC) [Mass/Vol] 30.6 g/dL Low 32-36 [facility] Mean platelet volume determi nationOrdered By: Juniemarcelle Crossjntal on 05-07-2025 Platelet mean volume (Bld) [Entitic vol] 10.0 fL 6.2-12.0 [facility] Monocyte percentageOrdered B y: Lizet Crossjntal on 05-07-2025 Monocytes/100 WBC (Bld) 7.3 % 0-10 [facility] Neutrophil percentageOrdered By: [facility] on 05-07-2025 Neutrophils/100 WBC (Bld) 55.4 % 47-70 [facility] Nucleated red blood cell per centageOrdered By: Juniemarcelle Crossjntal on 05-07-2025 Nucleated RBC/100 WBC (Bld) [Ratio] 0 % 0-5 [facility] Platelet countOrdered By: Junie marcelle Tayjntal on 05-07-2025 Platelets (Bld) [#/Vol] 338 10*3/uL 150-450 [facility] Potassium measurement (mass/ volume)Ordered By: Lizet Crossjntal on 05-07-2025 Potassium (Unsp spec) [Mass/Vol] 4.2 mmol/L 3.3-5.1 [facility] RBC Auto (Bld) [#/Vol]Ordere d By: Lizet Crossjntal on 05-07-2025 RBC (Bld) [#/Vol] 3.69 10*6/uL Low 4.2-5.4 [facility] Serum creatinine measurement (mass/volume)Ordered By: Lizet Linares on 05-07-2025 Creatinine [Mass/Vol] 1.58 mg/dL High 0.70-1.20 [facility] Serum glucose measurement (m ass/volume)Ordered By: Lizet Linares on 05-07-2025 Glucose [Mass/Vol] 232 mg/dL High 70-99 [facility] Serum or plasma calcium tai urement (mass/volume)Ordered By: Lizet Linares on 05-07-2025 Calcium [Mass/Vol] 8.9 mg/dL 7.6-11.0 [facility] Serum or plasma urea nitroge n measurement (mass/volume)Ordered By: Lizet Linares on 05-07-2025 Urea nitrogen [Mass/Vol] 27 mg/dL High 4-19 [facility] Sodium levelOrdered By: Holly Linares on 05-07-2025 Sodium [Moles/Vol] 134 mmol/L 133-145 [facility] White blood cell (WBC) count Ordered By: Lizet Linares on 05-07-2025 WBC (Bld) [#/Vol] 5.9 10*3/uL 4.4-11.0 [facility] Anion gap in Serum or Plasma Ordered By: Lizet Linraes on 04-25-2025 Anion gap [Moles/Vol] 12 mmol/L 5-15 [facility] BUN/creatinine ratioOrdered By: Lizet Linares on 04-25-2025 Urea nitrogen/Creatinine [Mass ratio] 21.3 mg/mg High 10-20 [facility] Carbon dioxide, total [Moles /volume] in Central venous bloodOrdered By: Lizet Linares on 04-25-2025 CO2 [Moles/Vol] 23.8 mmol/L 21.0-32.0 [facility] Chloride assayOrdered By: Junie Linares on 04-25-2025 Chloride [Moles/Vol] 100 mmol/L 98-108 [facility] Glomerular filtration rate ( GFR) estimation/1.73 sq m using serum, plasma, or whole bOrdered By: Lizet Linares on 04-25-2025 GFR/1.73 sq M.predicted among non-blacks MDRD (S/P/Bld) [Vol rate/Area] 44 mL/min/{1.73_m2} Low >60 [facility] Comment on above: mL/min/1.73m2 CKD-EP I Creatinine Equation (2020) Natriuretic peptide.B prohor ivory N-Terminal [Mass/volume] in Serum or PlasmaOrdered By: Lizet Linares on 04-25-2025 Natriuretic peptide.B prohormone N-Terminal [Mass/Vol] 220 pg/mL <900 [facility] Comment on above: Heart Failure Unlike ly: < 300 pg/mLHeart Failure Likely< 50 Years: > 450 pg/mL50-75 Years: > 900 pg/mL>75 Years: > 1800 pg/mL Potassium measurement (mass/ volume)Ordered By: Lizet Linares on 04-25-2025 Potassium (Unsp spec) [Mass/Vol] 4.4 mmol/L 3.3-5.1 [facility] Serum creatinine measurement (mass/volume)Ordered By: Lizet Linares on 04-25-2025 Creatinine [Mass/Vol] 1.38 mg/dL High 0.70-1.20 [facility] Serum glucose measurement (m ass/volume)Ordered By: Lizet Linares on 04-25-2025 Glucose [Mass/Vol] 217 mg/dL High 70-99 [facility] Serum or plasma calcium tai urement (mass/volume)Ordered By: Lizet Linares on 04-25-2025 Calcium [Mass/Vol] 9.2 mg/dL 7.6-11.0 [facility] Serum or plasma urea nitroge n measurement (mass/volume)Ordered By: Lizet Linares on 04-25-2025 Urea nitrogen [Mass/Vol] 29 mg/dL High 4-19 [facility] Sodium levelOrdered By: Holly Linares on 04-25-2025 Sodium [Moles/Vol] 135 mmol/L 133-145 [facility] TSH DL <= 0.005 mIU/L QnOrde red By: Lizet Linares on 04-25-2025 TSH Qn 24.000 uIU/mL High 0.300-4.20 0 [facility] Gram stainOrdered By: Shadia Linares on 04-12-2025 Microscopic observation Gram stain Nom (Unsp spec) [facility] Routine wound cultureOrdered By: Lizet Linares on 04-12-2025 Microbial culture, routine Meth. resistant Staph. aureus Abnormal [facility] Hemoglobin A1c percentageOrd ered By: Lizet Linares on 04-06-2025 HbA1c (Bld) [Mass fraction] 10.5 % High <5.7 [facility] Comment on above: Normal < 5.7 % Predi abetic 5.7 - 6.4 % Diabetic >or= 6.5 % Please note range changes. Hemoglobin A1c percentageOrd ered By: Lizet Linares on 03-29-2025 HbA1c (Bld) [Mass fraction] 10.8 % High <5.7 [facility] Comment on above: Normal < 5.7 % Predi abetic 5.7 - 6.4 % Diabetic >or= 6.5 % Please note range changes. TSH DL <= 0.005 mIU/L QnOrde red By: Lizet Linares on 03-29-2025 TSH Qn 5.840 uIU/mL High 0.300-4.20 0 [facility] Anion gap in Serum or Plasma Ordered By: Lizet Linares on 03-12-2025 Anion gap [Moles/Vol] 12 mmol/L 5-15 [facility] BUN/creatinine ratioOrdered By: Lizet Linares on 03-12-2025 Urea nitrogen/Creatinine [Mass ratio] 24.9 mg/mg High 10-20 [facility] Carbon dioxide, total [Moles /volume] in Central venous bloodOrdered By: Lizet Linares on 03-12-2025 CO2 [Moles/Vol] 23.0 mmol/L 21.0-32.0 [facility] Chloride assayOrdered By: uJnie Linares on 03-12-2025 Chloride [Moles/Vol] 97 mmol/L Low 98-108 [facility] Glomerular filtration rate ( GFR) estimation/1.73 sq m using serum, plasma, or whole bOrdered By: Lizet Linares on 03-12-2025 GFR/1.73 sq M.predicted among non-blacks MDRD (S/P/Bld) [Vol rate/Area] 35 mL/min/{1.73_m2} Low >60 [facility] Comment on above: mL/min/1.73m2 CKD-EP I Creatinine Equation (2020) Potassium measurement (mass/ volume)Ordered By: Lizet Linares on 03-12-2025 Potassium (Unsp spec) [Mass/Vol] 4.3 mmol/L 3.3-5.1 [facility] Serum creatinine measurement (mass/volume)Ordered By: Lizet Linares on 03-12-2025 Creatinine [Mass/Vol] 1.64 mg/dL High 0.70-1.20 [facility] Serum glucose measurement (m ass/volume)Ordered By: Lizet Linares on 03-12-2025 Glucose [Mass/Vol] 428 mg/dL High 70-99 [facility] Serum or plasma calcium tai urement (mass/volume)Ordered By: Lizet Linares on 03-12-2025 Calcium [Mass/Vol] 8.6 mg/dL 7.6-11.0 [facility] Serum or plasma urea nitroge n measurement (mass/volume)Ordered By: Lizet Linares on 03-12-2025 Urea nitrogen [Mass/Vol] 41 mg/dL High 4-19 [facility] Sodium levelOrdered By: Holly Linares on 03-12-2025 Sodium [Moles/Vol] 132 mmol/L Low 133-145 [facility] Bilirubin directOrdered By: Ana Maria Geller on 03-05-2025 Bilirubin.direct [Mass/Vol] 0.12 mg/dL 0.00-0.30 [facility] Bilirubin, totalOrdered By: Ana Maria Geller on 03-05-2025 Bilirubin [Mass/Vol] 0.19 mg/dL 0.00-1.30 [facility] Laboratory - Chemistry and C hemistry - challengeOrdered By: Ana Maria Geller on 03-05-2025 AST [Catalytic activity/Vol] 23 U/L <32 [facility] No Panel InformationOrdered By: Ana Maria Geller on 03-05-2025 23 U/L <32 [facility] Serum globulin measurementOr dered By: Ana Maria Geller on 03-05-2025 Globulin (S) [Mass/Vol] 2.7 g/dL 2.2-4.2 [facility] Serum or plasma alanine russo otransferase (ALT) measurementOrdered By: Ana Maria Geller on 03-05-2025 ALT [Catalytic activity/Vol] 24 U/L <35 [facility] Serum or plasma albumin tai urement (mass/volume)Ordered By: Ana Maria Geller on 03-05-2025 Albumin [Mass/Vol] 3.4 g/dL 3.4-4.8 [facility] Serum or plasma alkaline shante sphatase measurementOrdered By: Ana Maria Geller on 03-05-2025 ALP [Catalytic activity/Vol] 51 U/L 35-104 [facility] Total proteinOrdered By: Porter Geller on 03-05-2025 Protein [Mass/Vol] 6.1 g/dL 5.9-8.4 [facility] Absolute lymphocyte countOrd ered By: Zack Choi on 01-22-2025 Lymphocytes Auto (Unsp spec) [#/Vol] 2.95 10*3/uL 0.83-4.51 [facility] Absolute neutrophil countOrd ered By: Zack Choi on 01-22-2025 Neutrophils (Bld) [#/Vol] 4.6 10*3/uL 2.0-7.7 [facility] Absolute neutrophil count 4.6 X10^3/uL 2.0-7.7 [facility] Anion gap [Moles/Vol]Ordered By: Zack Cohi on 01-22-2025 Anion gap in Serum or Plasma 12 5- [facility] Anion gap in Serum or Plasma Ordered By: Zack Choi on 01-22-2025 Anion gap [Moles/Vol] 12 mmol/L 5-15 [facility] Automated lymphocyte count a s percentage of total leukocytesOrdered By: Zack Choi on 01-22-2025 Lymphocytes/100 WBC Auto (Unsp spec) 35.8 % 19-41 [facility] BUN/creatinine ratioOrdered By: Zack Choi on 01-22-2025 Urea nitrogen/Creatinine [Mass ratio] 24.2 mg/mg High 10-20 [facility] BUN/creatinine ratio 24.2 RATIO High 10-20 [facility] Basophil percentageOrdered B y: Zack Choi on 01-22-2025 Basophils/100 WBC (Bld) 0.6 % 0-1 [facility] Basophil percentage 0.6 % 0-1 [facility] Calcium [Mass/Vol]Ordered By : Zack Choi on 01-22-2025 Serum or plasma calcium measurement (mass/volume) 9.4 mg/dL 7.6-11.0 [facility] Carbon dioxide, total [Moles /volume] in Central venous bloodOrdered By: Zack Choi on 01-22-2025 CO2 [Moles/Vol] 22.3 mmol/L 21.0-32.0 [facility] Carbon dioxide, total [Moles/volume] in Central venous blood 22.3 mmol/L 21.0-32.0 [facility] Chloride assayOrdered By: Albert Choi on 01-22-2025 Chloride [Moles/Vol] 98 mmol/L 98-108 [facility] Chloride assay 98 mmol/L 98-108 [facility] Creatinine [Mass/Vol]Ordered By: Zack Choi on 01-22-2025 Serum creatinine measurement (mass/volume) 1.37 mg/dL High 0.70-1.20 [facility] Eosinophil percentageOrdered By: Zack Choi on 01-22-2025 Eosinophils/100 WBC (Bld) 1.0 % 0-5 [facility] Eosinophil percentage 1.0 % 0-5 [facility] Erythrocyte distribution wid th (RBC) [Ratio]Ordered By: Zack Choi on 01-22-2025 Erythrocyte distribution width ratio 14.1 % 11.6-14.6 [facility] Erythrocyte distribution wid th ratioOrdered By: Zack Choi on 01-22-2025 Erythrocyte distribution width (RBC) [Ratio] 14.1 % 11.6-14.6 [facility] Erythrocyte distribution wid th standard deviationOrdered By: Zack Choi on 01-22-2025 Erythrocyte distribution width (RBC) [Ratio] 44.8 fl High 35.1-43.9 [facility] Erythrocyte distribution width standard deviation 44.8 fl High 35.1-43.9 [facility] Estimation of creatinine jacqui aranceOrdered By: Zack Choi on 01-22-2025 Estimation of creatinine clearance 43.47 ml/min Low 50-250 [facility] GFR/1.73 sq M.predicted adama g non-blacks MDRD (S/P/Bld) [Vol rate/Area]Ordered By: Zack Choi on 01-22-2025 Glomerular filtration rate (GFR) estimation/1.73 sq m using serum, plasma, or whole b 44 Low >60 [facility] Glomerular filtration rate ( GFR) estimation/1.73 sq m using serum, plasma, or whole bOrdered By: Zack Choi on 01-22-2025 GFR/1.73 sq M.predicted among non-blacks MDRD (S/P/Bld) [Vol rate/Area] 44 mL/min/{1.73_m2} Low >60 [facility] Comment on above: mL/min/1.73m2 CKD-EP I Creatinine Equation (2020) Glucose [Mass/Vol]Ordered By : Zack Choi on 01-22-2025 Serum glucose measurement (mass/volume) 245 mg/dL High 70-99 [facility] Hematocrit Auto (Bld) [Volum e fraction]Ordered By: Zack Choi on 01-22-2025 Hematocrit (Bld) [Volume fraction] 37.0 % 37-47 [facility] Automated blood hematocrit (percentage) 37.0 % 37-47 [facility] Hemoglobin measurementOrdere d By: Zack Choi on 01-22-2025 Hemoglobin (Bld) [Mass/Vol] 12.1 g/dL 12.0-15.0 [facility] Hemoglobin measurement 12.1 g/dL 12.0-15.0 [facility] Immature granulocytes/100 WB C Auto (Bld)Ordered By: Zack Choi on 01-22-2025 Immature granulocytes/100 WBC (Bld) 1.000 % High 0.0-0.9 [facility] Comment on above: IG% - Immature Granu locytes (promyelocytes, myelocytes and metamyelocytes) > 1% indicates that a LEFT SHIFT is Present. Automated immature granulocyte percentage 1.000 % High 0.0-0.9 [facility] Lymphocytes Auto (Unsp spec) [#/Vol]Ordered By: Zack Choi on 01-22-2025 Absolute lymphocyte count 2.95 X10^3/uL 0.83-4. 51 [facility] Lymphocytes/100 WBC Auto (Un sp spec)Ordered By: Zack Choi on 01-22-2025 Automated lymphocyte count as percentage of total leukocytes 35.8 % 19-41 [facility] MCV (RBC) [Entitic vol]Order ed By: Zack Choi on 01-22-2025 MCV (mean corpuscular volume) determination 87.5 fL 81-99 [facility] MCV (mean corpuscular volume ) determinationOrdered By: Zack Choi on 01-22-2025 MCV (RBC) [Entitic vol] 87.5 fL 81-99 [facility] Mean corpuscular hemoglobin (MCH) determinationOrdered By: Zack Choi on 01-22-2025 MCH (RBC) [Entitic mass] 28.6 pg 27.0-32.0 [facility] Mean corpuscular hemoglobin (MCH) determination 28.6 pg 27.0-32.0 [facility] Mean corpuscular hemoglobin concentration (MCHC) determinationOrdered By: Zack Choi on 01-22-2025 MCHC (RBC) [Mass/Vol] 32.7 g/dL 32-36 [facility] Mean corpuscular hemoglobin concentration (MCHC) determination 32.7 g/dL -36 [facility] Mean platelet volume determi nationOrdered By: Zack Choi on 01-22-2025 Platelet mean volume (Bld) [Entitic vol] 9.6 fL 6.2-12.0 [facility] Mean platelet volume determination 9.6 fl 6.2-12.0 [facility] Monocyte percentageOrdered B y: Zack Cohi on 01-22-2025 Monocytes/100 WBC (Bld) 5.6 % 0-10 [facility] Monocyte percentage 5.6 % 0-10 [facility] Neutrophil percentageOrdered By: Zack Choi on 01-22-2025 Neutrophils/100 WBC (Bld) 56.0 % 47-70 [facility] Neutrophil percentage 56.0 % 47-70 [facility] No Panel InformationOrdered By: Zack Choi on 01-22-2025 Troponin T High Sensitivity 54 ng/L High <14 [facility] Comment on above: Critical Result(s) C alled at 1135: by: JUANA DELGADO. Results read back by same. 54 ng/L High <14 [facility] Nucleated red blood cell per centageOrdered By: Zack Choi on 01-22-2025 Nucleated RBC/100 WBC (Bld) [Ratio] 0 % 0-5 [facility] Nucleated red blood cell percentage 0 % 0-5 [facility] Platelet countOrdered By: Albert Choi on 01-22-2025 Platelets (Bld) [#/Vol] 341 10*3/uL 150-450 [facility] Platelet count 341 K/mm3 150-450 [facility] Potassium (Unsp spec) [Mass/ Vol]Ordered By: Zack Choi on 01-22-2025 Potassium measurement (mass/volume) 4.4 mmol/L 3.3-5.1 [facility] Potassium measurement (mass/ volume)Ordered By: Zack Choi on 01-22-2025 Potassium (Unsp spec) [Mass/Vol] 4.4 mmol/L 3.3-5.1 [facility] RBC Auto (Bld) [#/Vol]Ordere d By: Zack Choi on 01-22-2025 RBC (Bld) [#/Vol] 4.23 10*6/uL 4.2-5.4 [facility] Automated blood erythrocyte count 4.23 M/mm3 4.2-5.4 [facility] Serum creatinine measurement (mass/volume)Ordered By: Zack Choi on 01-22-2025 Creatinine [Mass/Vol] 1.37 mg/dL High 0.70-1.20 [facility] Serum glucose measurement (m ass/volume)Ordered By: Zack Choi on 01-22-2025 Glucose [Mass/Vol] 245 mg/dL High 70-99 [facility] Serum or plasma calcium tai urement (mass/volume)Ordered By: Zack Choi on 01-22-2025 Calcium [Mass/Vol] 9.4 mg/dL 7.6-11.0 [facility] Serum or plasma urea nitroge n measurement (mass/volume)Ordered By: Zack Choi on 01-22-2025 Urea nitrogen [Mass/Vol] 33 mg/dL High 4-19 [facility] Sodium levelOrdered By: Sherman Choi on 01-22-2025 Sodium [Moles/Vol] 133 mmol/L 133-145 [facility] Sodium level 133 mmol/L 133-145 [facility] Troponin T.cardiac High sens itivity method [Mass/Vol]Ordered By: Zack Choi on 01-22-2025 Troponin T.cardiac [Mass/volume] in Serum or Plasma by High sensitivity method 48 ng/L High <14 [facility] Troponin T.cardiac [Mass/vol ume] in Serum or Plasma by High sensitivity methodOrdered By: Zack Choi on 01-22-2025 Troponin T.cardiac High sensitivity method [Mass/Vol] 48 ng/L High <14 [facility] Urea nitrogen [Mass/Vol]Orde red By: Zack Choi on 01-22-2025 Serum or plasma urea nitrogen measurement (mass/volume) 33 mg/dL High - [facility] White blood cell (WBC) count Ordered By: Zack Choi on 01-22-2025 WBC (Bld) [#/Vol] 8.2 10*3/uL 4.4-11.0 [facility] White blood cell (WBC) count 8.2 K/mm3 4.4-11.0 [facility] HbA1c (Bld) [Mass fraction]O rdered By: Lizet Linares on 01-05-2025 Hemoglobin A1c percentage 10.2 % >5.7 [facility] Hemoglobin A1c percentageOrd ered By: Lizet Linares on 01-05-2025 HbA1c (Bld) [Mass fraction] 10.2 % >5.7 [facility] Creatinine (U) [Mass/Vol]Ord ered By: Lizet Linares on 12-07-2024 Urine creatinine measurement (mass/volume) 38.20 mg/dL NO RANGE EST. [facility] Random urine microalbumin me asurementOrdered By: Lizet Linares on 12-07-2024 Random urine microalbumin measurement 9.2 mg/L NO RANGE EST. [facility] Urine albumin/creatinine rat io for detection of microalbuminuriaOrdered By: Lizet Linares on 12-07-2024 Urine albumin/creatinine ratio for detection of microalbuminuria 24.0 mg/g CRE <30 [facility] Urine creatinine measurement (mass/volume)Ordered By: Lizet Linares on 12-07-2024 Creatinine (U) [Mass/Vol] 38.20 mg/dL NO RANGE EST. [facility] Cholesterol [Mass/Vol]Ordere d By: Lizet Linares on 11-30-2024 Serum or plasma cholesterol measurement (mass/volume) 91 mg/dL <200 [facility] High density lipoprotein (HD L) measurementOrdered By: Lizet Linares on 11-30-2024 Cholesterol in HDL [Mass/Vol] 29 mg/dL Low >40 [facility] Comment on above: The drugs N-Acetylcy steine and Metamizole may falsely depress this assay. Reference Range HDL <40 mg/dL Low HDL Cholesterol HDL >or= 60 mg/dL High HDL Cholesterol High density lipoprotein (HDL) measurement 29 mg/dL Low >40 [facility] Low density lipoprotein (LDL ) cholesterol measurementOrdered By: Lizet Linares on 11-30-2024 Cholesterol in LDL [Mass/Vol] 24 mg/dL 0-130 [facility] Low density lipoprotein (LDL) cholesterol measurement 24 mg/dL 0-130 [facility] Serum or plasma cholesterol measurement (mass/volume)Ordered By: Lizet Linares on 11-30-2024 Cholesterol [Mass/Vol] 91 mg/dL <200 [facility] Comment on above: <200 mg/dL Desirable 200-240 mg/dL Borderline >240 mg/dL High Risk Serum or plasma thyroid stim ulating hormone (TSH) measurement (units/volume)Ordered By: Lizet Linares on 11-30-2024 TSH Qn 2.550 uIU/mL 0.358-3.74 0 [facility] TSH QnOrdered By: Lizet Linares on 11-30-2024 Serum or plasma thyroid stimulating hormone (TSH) measurement (units/volume) 2.550 uIU/mL 0.358-3.74 0 [facility] Triglycerides measurementOrd ered By: Lziet Linares on 11-30-2024 Triglyceride [Mass/Vol] 191 mg/dL <199 [facility] Comment on above: The drugs N-Acetylcy steine and Metamizole may falsely depress this assay.Serum Triglycerides Reference Interval Normal <150 mg/dL Borderline high 150 - 199 mg/dL High 200 - 499 mg/dL Very High > or = 500 mg/dL Triglycerides measurement 191 mg/dL <199 [facility] Very low density lipoprotein (VLDL) cholesterol measurementOrdered By: Lizet Linares on 11-30-2024 Very low density lipoprotein (VLDL) cholesterol measurement 38 mg/dL 5-40 [facility] Very low density lipoprotein (VLDL) cholesterol measurement 38 mg/dL 5-40 [facility] Absolute neutrophil countOrd ered By: Lizet Linares on 11-24-2024 Absolute neutrophil count 4.1 X10^3/uL 2.0-7.7 [facility] Basophil percentageOrdered B y: Lizet Linares on 11-24-2024 Basophil percentage 0.6 % 0-1 [facility] Blood urea nitrogen (BUN)/cr eatinine ratioOrdered By: Lizet Linares on 11-24-2024 Blood urea nitrogen (BUN)/creatinine ratio 22.2 RATIO High 10-20 [facility] Calcium [Mass/Vol]Ordered By : Lizet Linares on 11-24-2024 Serum or plasma calcium measurement (mass/volume) 9.2 mg/dL 8.5-10.1 [facility] Carbon dioxide measurementOr dered By: Lizet Linares on 11-24-2024 Carbon dioxide measurement 27.0 mmol/L 21.0-32.0 [facility] Chloride measurementOrdered By: Lizet Linares on 11-24-2024 Chloride measurement 98 mmol/L 98-107 [facility] Creatinine [Mass/Vol]Ordered By: Lizet Linares on 11-24-2024 Serum or plasma creatinine measurement (mass/volume) 1.53 mg/dL High 0.55-1.02 [facility] Eosinophil percentageOrdered By: Lizet Linares on 11-24-2024 Eosinophil percentage 1.5 % 0-5 [facility] Erythrocyte distribution wid th (RBC) [Ratio]Ordered By: Lizet Linares on 11-24-2024 Erythrocyte distribution width ratio 13.9 % 11.6-14.6 [facility] Erythrocyte distribution wid th standard deviationOrdered By: Lizet Linares on 11-24-2024 Erythrocyte distribution width standard deviation 45.1 fl High 35.1-43.9 [facility] Estimated glomerular filtrat ion rate (GFR) AmericanOrdered By: Lizet Linares on 11-24-2024 Estimated glomerular filtration rate (GFR) 44 mL/min Low >60 [facility] Glomerular filtration rate ( GFR) estimationOrdered By: Lizet Linares on 11-24-2024 Glomerular filtration rate (GFR) estimation 37 mL/min Low >60 [facility] Glucose measurementOrdered B y: Lizet Linares on 11-24-2024 Glucose measurement 402 mg/dL High 74-106 [facility] Hematocrit Auto (Bld) [Volum e fraction]Ordered By: Lizet Linares on 11-24-2024 Automated blood hematocrit (percentage) 32.9 % Low 37-47 [facility] Hemoglobin measurementOrdere d By: Lizet Linares on 11-24-2024 Hemoglobin measurement 10.2 g/dL Low 12.0-15.0 [facility] Immature granulocytes/100 WB C Auto (Bld)Ordered By: Lizet Linares on 11-24-2024 Automated immature granulocyte percentage 0.600 % 0.0-0.9 [facility] Lymphocytes Auto (Unsp spec) [#/Vol]Ordered By: Lizet Linares on 11-24-2024 Absolute lymphocyte count 2.20 X10^3/uL 0.83-4. 51 [facility] Lymphocytes/100 WBC Auto (Un sp spec)Ordered By: Lizet Linares on 11-24-2024 Automated lymphocyte count as percentage of total leukocytes 32.2 % 19-41 [facility] MCV (RBC) [Entitic vol]Order ed By: Lizet Linares on 11-24-2024 MCV (mean corpuscular volume) determination 89.2 fL 81-99 [facility] Mean corpuscular hemoglobin (MCH) determinationOrdered By: Lizet Linares on 11-24-2024 Mean corpuscular hemoglobin (MCH) determination 27.6 pg 27.0-32.0 [facility] Mean corpuscular hemoglobin concentration (MCHC) determinationOrdered By: Lizet Linares on 11-24-2024 Mean corpuscular hemoglobin concentration (MCHC) determination 31.0 g/dL Low 32-36 [facility] Mean platelet volume determi nationOrdered By: Lizet Linares on 11-24-2024 Mean platelet volume determination 9.3 fl 6.2-12.0 [facility] Monocyte percentageOrdered B y: Lizet Linares on 11-24-2024 Monocyte percentage 5.1 % 0-10 [facility] Neutrophil percentageOrdered By: Lizet Linares on 11-24-2024 Neutrophil percentage 60.0 % 47-70 [facility] Nucleated red blood cell per centageOrdered By: Lizet Linares on 11-24-2024 Nucleated red blood cell percentage 0 % 0-5 [facility] Platelet countOrdered By: Junie Linares on 11-24-2024 Platelet count 311 K/mm3 150-450 [facility] Potassium measurementOrdered By: Lizet Linares on 11-24-2024 Potassium measurement 4.7 mmol/L 3.5-5.1 [facility] RBC Auto (Bld) [#/Vol]Ordere d By: Lizet Linares on 11-24-2024 Automated blood erythrocyte count 3.69 M/mm3 Low 4.2-5.4 [facility] Serum anion gap measurementO rdered By: Lizet Linares on 11-24-2024 Serum anion gap measurement 6 5-15 [facility] Sodium levelOrdered By: Holly Linares on 11-24-2024 Sodium level 131 mmol/L Low 136-145 [facility] Urea nitrogen [Mass/Vol]Orde red By: Lizet Linares on 11-24-2024 Serum or plasma urea nitrogen measurement (mass/volume) 34 mg/dL High 7-18 [facility] White blood cell (WBC) count Ordered By: Lizet Linares on 11-24-2024 White blood cell (WBC) count 6.8 K/mm3 4.4-11.0 [facility] Absolute neutrophil countOrd ered By: Lizet Linares on 11-17-2024 Absolute neutrophil count 3.2 X10^3/uL 2.0-7.7 [facility] Basophil percentageOrdered B y: Lizet Linares on 11-17-2024 Basophil percentage 0.7 % 0-1 [facility] Blood urea nitrogen (BUN)/cr eatinine ratioOrdered By: Lizet Linares on 11-17-2024 Blood urea nitrogen (BUN)/creatinine ratio 22.6 RATIO High 10-20 [facility] Calcium [Mass/Vol]Ordered By : Lizet Linares on 11-17-2024 Serum or plasma calcium measurement (mass/volume) 8.6 mg/dL 8.5-10.1 [facility] Carbon dioxide measurementOr dered By: Lizet Linares on 11-17-2024 Carbon dioxide measurement 26.0 mmol/L 21.0-32.0 [facility] Chloride measurementOrdered By: Lizet Linares on 11-17-2024 Chloride measurement 103 mmol/L 98-107 [facility] Creatinine [Mass/Vol]Ordered By: Lizet Linares on 11-17-2024 Serum or plasma creatinine measurement (mass/volume) 1.37 mg/dL High 0.55-1.02 [facility] Eosinophil percentageOrdered By: Lizet Linares on 11-17-2024 Eosinophil percentage 1.5 % 0-5 [facility] Erythrocyte distribution wid th (RBC) [Ratio]Ordered By: Lizet Linares on 11-17-2024 Erythrocyte distribution width ratio 13.8 % 11.6-14.6 [facility] Erythrocyte distribution wid th standard deviationOrdered By: Lizet Linares on 11-17-2024 Erythrocyte distribution width standard deviation 44.4 fl High 35.1-43.9 [facility] Estimated glomerular filtrat ion rate (GFR) AmericanOrdered By: Lizet Linares on 11-17-2024 Estimated glomerular filtration rate (GFR) 50 mL/min Low >60 [facility] Glomerular filtration rate ( GFR) estimationOrdered By: Lizet Linares on 11-17-2024 Glomerular filtration rate (GFR) estimation 42 mL/min Low >60 [facility] Glucose measurementOrdered B y: Lizet Linares on 11-17-2024 Glucose measurement 304 mg/dL High 74-106 [facility] Hematocrit Auto (Bld) [Volum e fraction]Ordered By: Lizet Linares on 11-17-2024 Automated blood hematocrit (percentage) 32.3 % Low 37-47 [facility] Hemoglobin measurementOrdere d By: Lizet Linares on 11-17-2024 Hemoglobin measurement 10.1 g/dL Low 12.0-15.0 [facility] Immature granulocytes/100 WB C Auto (Bld)Ordered By: Lizet Linares on 11-17-2024 Automated immature granulocyte percentage 0.300 % 0.0-0.9 [facility] Lymphocytes Auto (Unsp spec) [#/Vol]Ordered By: Lizet Linares on 11-17-2024 Absolute lymphocyte count 2.18 X10^3/uL 0.83-4. 51 [facility] Lymphocytes/100 WBC Auto (Un sp spec)Ordered By: Lizet Linares on 11-17-2024 Automated lymphocyte count as percentage of total leukocytes 36.9 % 19-41 [facility] MCV (RBC) [Entitic vol]Order ed By: Lizet Linares on 11-17-2024 MCV (mean corpuscular volume) determination 87.5 fL 81-99 [facility] Mean corpuscular hemoglobin (MCH) determinationOrdered By: Lizet Linares on 11-17-2024 Mean corpuscular hemoglobin (MCH) determination 27.4 pg 27.0-32.0 [facility] Mean corpuscular hemoglobin concentration (MCHC) determinationOrdered By: Lizet Linares on 11-17-2024 Mean corpuscular hemoglobin concentration (MCHC) determination 31.3 g/dL Low 32-36 [facility] Mean platelet volume determi nationOrdered By: Lizet Linares on 11-17-2024 Mean platelet volume determination 9.4 fl 6.2-12.0 [facility] Monocyte percentageOrdered B y: Lizet Linares on 11-17-2024 Monocyte percentage 5.8 % 0-10 [facility] Neutrophil percentageOrdered By: Lizet Linares on 11-17-2024 Neutrophil percentage 54.8 % 47-70 [facility] Nucleated red blood cell per centageOrdered By: Lizet Linares on 11-17-2024 Nucleated red blood cell percentage 0 % 0-5 [facility] Platelet countOrdered By: Junie Linares on 11-17-2024 Platelet count 309 K/mm3 150-450 [facility] Potassium measurementOrdered By: Lizet Linares on 11-17-2024 Potassium measurement 4.3 mmol/L 3.5-5.1 [facility] RBC Auto (Bld) [#/Vol]Ordere d By: Lizet Linares on 11-17-2024 Automated blood erythrocyte count 3.69 M/mm3 Low 4.2-5.4 [facility] Serum anion gap measurementO rdered By: Lizet Linares on 11-17-2024 Serum anion gap measurement 6 5-15 [facility] Sodium levelOrdered By: Holly Linares on 11-17-2024 Sodium level 135 mmol/L Low 136-145 [facility] Urea nitrogen [Mass/Vol]Orde red By: Lizet Lianres on 11-17-2024 Serum or plasma urea nitrogen measurement (mass/volume) 31 mg/dL High 7-18 [facility] White blood cell (WBC) count Ordered By: Lizet Linares on 11-17-2024 White blood cell (WBC) count 5.9 K/mm3 4.4-11.0 [facility] Absolute neutrophil countOrd ered By: Lizet Linares on 11-10-2024 Absolute neutrophil count 4.5 X10^3/uL 2.0-7.7 [facility] Basophil percentageOrdered B y: Lizet Linares on 11-10-2024 Basophil percentage 0.7 % 0-1 [facility] Blood urea nitrogen (BUN)/cr eatinine ratioOrdered By: Lizet Linares on 11-10-2024 Blood urea nitrogen (BUN)/creatinine ratio 16.4 RATIO 10-20 [facility] Calcium [Mass/Vol]Ordered By : Lizet Linares on 11-10-2024 Serum or plasma calcium measurement (mass/volume) 9.1 mg/dL 8.5-10.1 [facility] Carbon dioxide measurementOr dered By: Lizet Linares on 11-10-2024 Carbon dioxide measurement 27.0 mmol/L 21.0-32.0 [facility] Chloride measurementOrdered By: Lizet Linares on 11-10-2024 Chloride measurement 100 mmol/L 98-107 [facility] Creatinine [Mass/Vol]Ordered By: Lizet Linares on 11-10-2024 Serum or plasma creatinine measurement (mass/volume) 1.40 mg/dL High 0.55-1.02 [facility] Eosinophil percentageOrdered By: Lizet Linares on 11-10-2024 Eosinophil percentage 1.1 % 0-5 [facility] Erythrocyte distribution wid th (RBC) [Ratio]Ordered By: Lizet Linares on 11-10-2024 Erythrocyte distribution width ratio 13.8 % 11.6-14.6 [facility] Erythrocyte distribution wid th standard deviationOrdered By: Lizet Linares on 11-10-2024 Erythrocyte distribution width standard deviation 45.1 fl High 35.1-43.9 [facility] Estimated glomerular filtrat ion rate (GFR) AmericanOrdered By: Lizet Linares on 11-10-2024 Estimated glomerular filtration rate (GFR) 49 mL/min Low >60 [facility] Glomerular filtration rate ( GFR) estimationOrdered By: Lizet Linares on 11-10-2024 Glomerular filtration rate (GFR) estimation 41 mL/min Low >60 [facility] Glucose measurementOrdered B y: Lizet Linares on 11-10-2024 Glucose measurement 342 mg/dL High 74-106 [facility] Hematocrit Auto (Bld) [Volum e fraction]Ordered By: Lizet Linares on 11-10-2024 Automated blood hematocrit (percentage) 32.9 % Low 37-47 [facility] Hemoglobin measurementOrdere d By: Lizet Linares on 11-10-2024 Hemoglobin measurement 10.4 g/dL Low 12.0-15.0 [facility] Immature granulocytes/100 WB C Auto (Bld)Ordered By: Lizet Linares on 11-10-2024 Automated immature granulocyte percentage 0.600 % 0.0-0.9 [facility] Lymphocytes Auto (Unsp spec) [#/Vol]Ordered By: Lizet Linares on 11-10-2024 Absolute lymphocyte count 2.01 X10^3/uL 0.83-4. 51 [facility] Lymphocytes/100 WBC Auto (Un sp spec)Ordered By: Lizet Linares on 11-10-2024 Automated lymphocyte count as percentage of total leukocytes 28.2 % 19-41 [facility] MCV (RBC) [Entitic vol]Order ed By: Lizet Linares on 11-10-2024 MCV (mean corpuscular volume) determination 88.9 fL 81-99 [facility] Mean corpuscular hemoglobin (MCH) determinationOrdered By: Lizet Linares on 11-10-2024 Mean corpuscular hemoglobin (MCH) determination 28.1 pg 27.0-32.0 [facility] Mean corpuscular hemoglobin concentration (MCHC) determinationOrdered By: Lizet Linares on 11-10-2024 Mean corpuscular hemoglobin concentration (MCHC) determination 31.6 g/dL Low 32-36 [facility] Mean platelet volume determi nationOrdered By: Lizet Linares on 11-10-2024 Mean platelet volume determination 10.0 fl 6.2-12.0 [facility] Monocyte percentageOrdered B y: Lizet Linares on 11-10-2024 Monocyte percentage 6.0 % 0-10 [facility] Neutrophil percentageOrdered By: Lizet Linares on 11-10-2024 Neutrophil percentage 63.4 % 47-70 [facility] Nucleated red blood cell per centageOrdered By: Lizet Linares on 11-10-2024 Nucleated red blood cell percentage 0 % 0-5 [facility] Platelet countOrdered By: Junie Linares on 11-10-2024 Platelet count 334 K/mm3 150-450 [facility] Potassium measurementOrdered By: Lizet Linares on 11-10-2024 Potassium measurement 4.4 mmol/L 3.5-5.1 [facility] RBC Auto (Bld) [#/Vol]Ordere d By: Lizet Linares on 11-10-2024 Automated blood erythrocyte count 3.70 M/mm3 Low 4.2-5.4 [facility] Serum anion gap measurementO rdered By: Lizet Linares on 11-10-2024 Serum anion gap measurement 7 5-15 [facility] Sodium levelOrdered By: Holly Linares on 11-10-2024 Sodium level 134 mmol/L Low 136-145 [facility] Urea nitrogen [Mass/Vol]Orde red By: Lizet Linares on 11-10-2024 Serum or plasma urea nitrogen measurement (mass/volume) 23 mg/dL High 7-18 [facility] White blood cell (WBC) count Ordered By: Lizet Linares on 11-10-2024 White blood cell (WBC) count 7.1 K/mm3 4.4-11.0 [facility] Absolute neutrophil countOrd ered By: Lizet Linares on 11-03-2024 Absolute neutrophil count 3.0 X10^3/uL 2.0-7.7 [facility] Basophil percentageOrdered B y: Lizet Linares on 11-03-2024 Basophil percentage 0.5 % 0-1 [facility] Blood urea nitrogen (BUN)/cr eatinine ratioOrdered By: Lizet Linares on 11-03-2024 Blood urea nitrogen (BUN)/creatinine ratio 21.3 RATIO High 10-20 [facility] Calcium [Mass/Vol]Ordered By : Lizet Linares on 11-03-2024 Serum or plasma calcium measurement (mass/volume) 9.1 mg/dL 8.5-10.1 [facility] Carbon dioxide measurementOr dered By: Lizet Linares on 11-03-2024 Carbon dioxide measurement 26.0 mmol/L 21.0-32.0 [facility] Chloride measurementOrdered By: Lizet Linares on 11-03-2024 Chloride measurement 100 mmol/L 98-107 [facility] Creatinine [Mass/Vol]Ordered By: Lizet Linares on 11-03-2024 Serum or plasma creatinine measurement (mass/volume) 1.27 mg/dL High 0.55-1.02 [facility] Eosinophil percentageOrdered By: Lizet Linares on 11-03-2024 Eosinophil percentage 2.4 % 0-5 [facility] Erythrocyte distribution wid th (RBC) [Ratio]Ordered By: Lizet Linares on 11-03-2024 Erythrocyte distribution width ratio 13.9 % 11.6-14.6 [facility] Erythrocyte distribution wid th standard deviationOrdered By: Lizet Linares on 11-03-2024 Erythrocyte distribution width standard deviation 45.0 fl High 35.1-43.9 [facility] Estimated glomerular filtrat ion rate (GFR) AmericanOrdered By: Lizet Linares on 11-03-2024 Estimated glomerular filtration rate (GFR) 55 mL/min Low >60 [facility] Glomerular filtration rate ( GFR) estimationOrdered By: Lizet Linares on 11-03-2024 Glomerular filtration rate (GFR) estimation 45 mL/min Low >60 [facility] Glucose measurementOrdered B y: Lizet Linares on 11-03-2024 Glucose measurement 352 mg/dL High 74-106 [facility] Hematocrit Auto (Bld) [Volum e fraction]Ordered By: Lizet Linares on 11-03-2024 Automated blood hematocrit (percentage) 33.0 % Low 37-47 [facility] Hemoglobin measurementOrdere d By: Lizet Linares on 11-03-2024 Hemoglobin measurement 10.2 g/dL Low 12.0-15.0 [facility] Immature granulocytes/100 WB C Auto (Bld)Ordered By: Lizet Linares on 11-03-2024 Automated immature granulocyte percentage 0.500 % 0.0-0.9 [facility] Lymphocytes Auto (Unsp spec) [#/Vol]Ordered By: Lizet Linares on 11-03-2024 Absolute lymphocyte count 1.95 X10^3/uL 0.83-4. 51 [facility] Lymphocytes/100 WBC Auto (Un sp spec)Ordered By: Lizet Linares on 11-03-2024 Automated lymphocyte count as percentage of total leukocytes 35.6 % 19-41 [facility] MCV (RBC) [Entitic vol]Order ed By: Lizet Linares on 11-03-2024 MCV (mean corpuscular volume) determination 89.2 fL 81-99 [facility] Mean corpuscular hemoglobin (MCH) determinationOrdered By: Lizet Linares on 11-03-2024 Mean corpuscular hemoglobin (MCH) determination 27.6 pg 27.0-32.0 [facility] Mean corpuscular hemoglobin concentration (MCHC) determinationOrdered By: Lizet Linares on 11-03-2024 Mean corpuscular hemoglobin concentration (MCHC) determination 30.9 g/dL Low 32-36 [facility] Mean platelet volume determi nationOrdered By: Lizet Linares on 11-03-2024 Mean platelet volume determination 9.6 fl 6.2-12.0 [facility] Monocyte percentageOrdered B y: Lizet Linares on 11-03-2024 Monocyte percentage 6.4 % 0-10 [facility] Neutrophil percentageOrdered By: Lizet Linares on 11-03-2024 Neutrophil percentage 54.6 % 47-70 [facility] Nucleated red blood cell per centageOrdered By: Lizet Linares on 11-03-2024 Nucleated red blood cell percentage 0 % 0-5 [facility] Platelet countOrdered By: Junie Linares on 11-03-2024 Platelet count 331 K/mm3 150-450 [facility] Potassium measurementOrdered By: Lizet Linares on 11-03-2024 Potassium measurement 4.1 mmol/L 3.5-5.1 [facility] RBC Auto (Bld) [#/Vol]Ordere d By: Lizet Linares on 11-03-2024 Automated blood erythrocyte count 3.70 M/mm3 Low 4.2-5.4 [facility] Serum anion gap measurementO rdered By: Lizet Linares on 11-03-2024 Serum anion gap measurement 6 5-15 [facility] Sodium levelOrdered By: Holly Linares on 11-03-2024 Sodium level 133 mmol/L Low 136-145 [facility] Urea nitrogen [Mass/Vol]Orde red By: Lizet Linares on 11-03-2024 Serum or plasma urea nitrogen measurement (mass/volume) 27 mg/dL High 7-18 [facility] White blood cell (WBC) count Ordered By: Lizet Linares on 11-03-2024 White blood cell (WBC) count 5.5 K/mm3 4.4-11.0 [facility] TSH QnOrdered By: Lizet Linares on 11-01-2024 Serum or plasma thyroid stimulating hormone (TSH) measurement (units/volume) 2.030 uIU/mL 0.358-3.74 0 [facility] Absolute neutrophil countOrd ered By: Lizet Linares on 10-27-2024 Absolute neutrophil count 3.1 X10^3/uL 2.0-7.7 [facility] Basophil percentageOrdered B y: Lizet Linares on 10-27-2024 Basophil percentage 0.4 % 0-1 [facility] Blood urea nitrogen (BUN)/cr eatinine ratioOrdered By: Lizet Linares on 10-27-2024 Blood urea nitrogen (BUN)/creatinine ratio 17.7 RATIO 10-20 [facility] Calcium [Mass/Vol]Ordered By : Lizet Linares on 10-27-2024 Serum or plasma calcium measurement (mass/volume) 8.3 mg/dL Low 8.5-10.1 [facility] Carbon dioxide measurementOr dered By: Lizet Linares on 10-27-2024 Carbon dioxide measurement 25.0 mmol/L 21.0-32.0 [facility] Chloride measurementOrdered By: Lizet Linares on 10-27-2024 Chloride measurement 100 mmol/L 98-107 [facility] Creatinine [Mass/Vol]Ordered By: Lizet Linares on 10-27-2024 Serum or plasma creatinine measurement (mass/volume) 1.41 mg/dL High 0.55-1.02 [facility] Eosinophil percentageOrdered By: Lizet Linares on 10-27-2024 Eosinophil percentage 2.4 % 0-5 [facility] Erythrocyte distribution wid th (RBC) [Ratio]Ordered By: Lizet Linares on 10-27-2024 Erythrocyte distribution width ratio 13.9 % 11.6-14.6 [facility] Erythrocyte distribution wid th standard deviationOrdered By: Lizet Linares on 10-27-2024 Erythrocyte distribution width standard deviation 44.4 fl High 35.1-43.9 [facility] Estimated glomerular filtrat ion rate (GFR) AmericanOrdered By: Lizet Linares on 10-27-2024 Estimated glomerular filtration rate (GFR) 49 mL/min Low >60 [facility] Glomerular filtration rate ( GFR) estimationOrdered By: Lizet Linares on 10-27-2024 Glomerular filtration rate (GFR) estimation 40 mL/min Low >60 [facility] Glucose measurementOrdered B y: Lizet Linares on 10-27-2024 Glucose measurement 425 mg/dL High 74-106 [facility] Hematocrit Auto (Bld) [Volum e fraction]Ordered By: Lizet Linares on 10-27-2024 Automated blood hematocrit (percentage) 28.7 % Low 37-47 [facility] Hemoglobin measurementOrdere d By: Lizet Linares on 10-27-2024 Hemoglobin measurement 9.2 g/dL Low 12.0-15.0 [facility] Immature granulocytes/100 WB C Auto (Bld)Ordered By: Lizet Linares on 10-27-2024 Automated immature granulocyte percentage 0.400 % 0.0-0.9 [facility] Lymphocytes Auto (Unsp spec) [#/Vol]Ordered By: Lizet Linares on 10-27-2024 Absolute lymphocyte count 1.77 X10^3/uL 0.83-4. 51 [facility] Lymphocytes/100 WBC Auto (Un sp spec)Ordered By: Lizet Linares on 10-27-2024 Automated lymphocyte count as percentage of total leukocytes 32.8 % 19-41 [facility] MCV (RBC) [Entitic vol]Order ed By: Lizet Linares on 10-27-2024 MCV (mean corpuscular volume) determination 87.8 fL 81-99 [facility] Mean corpuscular hemoglobin (MCH) determinationOrdered By: Lizet Linares on 10-27-2024 Mean corpuscular hemoglobin (MCH) determination 28.1 pg 27.0-32.0 [facility] Mean corpuscular hemoglobin concentration (MCHC) determinationOrdered By: Lizet Linares on 10-27-2024 Mean corpuscular hemoglobin concentration (MCHC) determination 32.1 g/dL 32-36 [facility] Mean platelet volume determi nationOrdered By: Lizet Linares on 10-27-2024 Mean platelet volume determination 10.1 fl 6.2-12.0 [facility] Monocyte percentageOrdered B y: Lizet Linares on 10-27-2024 Monocyte percentage 5.9 % 0-10 [facility] Neutrophil percentageOrdered By: Lizet Linares on 10-27-2024 Neutrophil percentage 58.1 % 47-70 [facility] Nucleated red blood cell per centageOrdered By: Lizet Linares on 10-27-2024 Nucleated red blood cell percentage 0 % 0-5 [facility] Platelet countOrdered By: Junie Linares on 10-27-2024 Platelet count 292 K/mm3 150-450 [facility] Potassium measurementOrdered By: Lizet Linares on 10-27-2024 Potassium measurement 4.0 mmol/L 3.5-5.1 [facility] RBC Auto (Bld) [#/Vol]Ordere d By: Lizet Linares on 10-27-2024 Automated blood erythrocyte count 3.27 M/mm3 Low 4.2-5.4 [facility] Serum anion gap measurementO rdered By: Lizet Linares on 10-27-2024 Serum anion gap measurement 8 5-15 [facility] Sodium levelOrdered By: Holly Linares on 10-27-2024 Sodium level 132 mmol/L Low 136-145 [facility] Urea nitrogen [Mass/Vol]Orde red By: Lizet Linares on 10-27-2024 Serum or plasma urea nitrogen measurement (mass/volume) 25 mg/dL High 7-18 [facility] White blood cell (WBC) count Ordered By: Lizet Linares on 10-27-2024 White blood cell (WBC) count 5.4 K/mm3 4.4-11.0 [facility] ALP [Catalytic activity/Vol] Ordered By: Salvador Campbell on 10-24-2024 Serum or plasma alkaline phosphatase measurement 49 U/L 45-117 [facility] ALT [Catalytic activity/Vol] Ordered By: Salvador Campbell on 10-24-2024 Serum or plasma alanine aminotransferase (ALT) measurement 25 U/L 13-56 [facility] Absolute neutrophil countOrd ered By: Salvador Campbell on 10-24-2024 Absolute neutrophil count 4.0 X10^3/uL 2.0-7.7 [facility] Albumin [Mass/Vol]Ordered By : Salvador Campbell on 10-24-2024 Serum or plasma albumin measurement (mass/volume) 3.0 g/dL Low 3.2-5.0 [facility] Albumin to globulin ratioOrd ered By: Salvador Campbell on 10-24-2024 Albumin to globulin ratio 0.8 RATIO Low 0.9-2.4 [facility] Basophil percentageOrdered B y: Salvador Campbell on 10-24-2024 Basophil [facility] 0.7 % 0-1 [facility] Bilirubin, totalOrdered By: Salvador Campbell on 10-24-2024 Bilirubin, total 0.30 mg/dL 0.20-1.00 [facility] Blood urea nitrogen (BUN)/cr eatinine ratioOrdered By: Salvador Campbell on 10-24-2024 Blood urea nitrogen (BUN)/creatinine ratio 21.1 RATIO High 10-20 [facility] Calcium [Mass/Vol]Ordered By : Salvador Campbell on 10-24-2024 Serum or plasma calcium measurement (mass/volume) 8.8 mg/dL 8.5-10.1 [facility] Carbon dioxide measurementOr dered By: Salvador Campbell on 10-24-2024 Carbon dioxide measurement 26.0 mmol/L 21.0-32.0 [facility] Chloride measurementOrdered By: Salvador Campbell on 10-24-2024 Chloride measurement 100 mmol/L 98-107 [facility] Clarity (U)Ordered By: Natan Campbell on 10-24-2024 Urine clarity Clear Clear [facility] Color (U)Ordered By: Salvador Campbell on 10-24-2024 Urine color determination Yellow Yellow [facility] Creatinine [Mass/Vol]Ordered By: Salvador Campbell on 10-24-2024 Serum or plasma creatinine measurement (mass/volume) 1.28 mg/dL High 0.55-1.02 [facility] Eosinophil percentageOrdered By: Salvador Campbell on 10-24-2024 Eosinophil percentage 2.2 % 0-5 [facility] Epithelial cells.squamous LM Ql (Urine sed)Ordered By: Salvador Campbell on 10-24-2024 Squamous epithelial cells detection in urine sediment by light microscopy 0-5 SEEN /hpf 5-10 [facility] Erythrocyte distribution wid th (RBC) [Ratio]Ordered By: Salvador Campbell on 10-24-2024 Erythrocyte distribution width ratio 13.6 % 11.6-14.6 [facility] Erythrocyte distribution wid th standard deviationOrdered By: Salvador Campbell on 10-24-2024 Erythrocyte distribution width standard deviation 44.1 fl High 35.1-43.9 [facility] Estimated glomerular filtrat ion rate (GFR) AmericanOrdered By: Salvador Campbell on 10-24-2024 Estimated glomerular filtration rate (GFR) 55 mL/min Low >60 [facility] Estimation of creatinine jacqui aranceOrdered By: Salvador Campbell on 10-24-2024 Estimation of creatinine clearance 46.41 ml/min [facility] Glomerular filtration rate ( GFR) estimationOrdered By: Salvador Campbell on 10-24-2024 Glomerular filtration rate (GFR) estimation 45 mL/min Low >60 [facility] Glucose Ql (U)Ordered By: nakul Cambpell on 10-24-2024 Urine glucose detection 250 mg/dl High Normal [facility] Glucose measurementOrdered B y: Salvador Campbell on 10-24-2024 Glucose measurement 328 mg/dL High 74-106 [facility] Hematocrit Auto (Bld) [Volum e fraction]Ordered By: Salvador Campbell on 10-24-2024 Automated blood hematocrit (percentage) 33.6 % Low 37-47 [facility] Hemoglobin measurementOrdere d By: Salvador Campbell on 10-24-2024 Hemoglobin measurement 10.4 g/dL Low 12.0-15.0 [facility] Immature granulocytes/100 WB C Auto (Bld)Ordered By: Salvador Campbell on 10-24-2024 Automated immature granulocyte percentage 0.900 % 0.0-0.9 [facility] Lactic acid measurementOrder ed By: Salvador Campbell on 10-24-2024 Lactic acid measurement 1.7 mmol/L 0.4-2.0 [facility] Lymphocytes Auto (Unsp spec) [#/Vol]Ordered By: Salvador Campbell on 10-24-2024 Absolute lymphocyte count 2.05 X10^3/uL 0.83-4. 51 [facility] Lymphocytes/100 WBC Auto (Un sp spec)Ordered By: Salvador Campbell on 10-24-2024 Automated lymphocyte count as percentage of total leukocytes 30.7 % 19-41 [facility] MCV (RBC) [Entitic vol]Order ed By: Salvador Campbell on 10-24-2024 MCV (mean corpuscular volume) determination 88.9 fL 81-99 [facility] Mean corpuscular hemoglobin (MCH) determinationOrdered By: Salvador Campbell on 10-24-2024 Mean corpuscular hemoglobin (MCH) determination 27.5 pg 27.0-32.0 [facility] Mean corpuscular hemoglobin concentration (MCHC) determinationOrdered By: Salvador Campbell on 10-24-2024 Mean corpuscular hemoglobin concentration (MCHC) determination 31.0 g/dL Low 32-36 [facility] Mean platelet volume determi nationOrdered By: Salvador Campbell on 10-24-2024 Mean platelet volume determination 9.7 fl 6.2-12.0 [facility] Monocyte percentageOrdered B y: Salvador Campbell on 10-24-2024 Monocyte percentage 5.7 % 0-10 [facility] Neutrophil percentageOrdered By: Salvador Campbell on 10-24-2024 Neutrophil percentage 59.8 % 47-70 [facility] No Panel InformationOrdered By: Salvador Campbell on 10-24-2024 32 U/L 15-37 [facility] Nucleated red blood cell per centageOrdered By: Salvador Campbell on 10-24-2024 Nucleated red blood cell percentage 0 % 0-5 [facility] Platelet countOrdered By: Malachi Campbell on 10-24-2024 Platelet count 352 K/mm3 150-450 [facility] Potassium measurementOrdered By: Salvador Campbell on 10-24-2024 Potassium measurement 4.1 mmol/L 3.5-5.1 [facility] Protein Test strip Ql (U)Ord ered By: Salvador Campbell on 10-24-2024 Urine protein assay by test strip, semi-quantitative 15 mg/dl High Negative [facility] RBC Auto (Bld) [#/Vol]Ordere d By: Salvador Campbell on 10-24-2024 Automated blood erythrocyte count 3.78 M/mm3 Low 4.2-5.4 [facility] Serum anion gap measurementO rdered By: Salvador Campbell on 10-24-2024 Serum anion gap measurement 8 5-15 [facility] Serum globulin measurementOr dered By: Salvador Campbell on 10-24-2024 Serum globulin measurement 3.8 g/dL 2.2-4.2 [facility] Sodium levelOrdered By: Charles Campbell on 10-24-2024 Sodium level 135 mmol/L Low 136-145 [facility] Specific gravity (U) [Rel de nsity]Ordered By: Salvador Campbell on 10-24-2024 Urine specific gravity measurement 1.015 1.002-1.03 0 [facility] Total proteinOrdered By: Roldan Campbell on 10-24-2024 Total protein 6.8 g/dL 6.4-8.2 [facility] Urea nitrogen [Mass/Vol]Orde red By: Salvador Campbell on 10-24-2024 Serum or plasma urea nitrogen measurement (mass/volume) 27 mg/dL High 7-18 [facility] Urine total bilirubin detect ion by test stripOrdered By: Salvador Campbell on 10-24-2024 Urine total bilirubin detection by test strip Negative Negative [facility] Urobilinogen Ql (U)Ordered B y: Salvador Campbell on 10-24-2024 Urine urobilinogen measurement Normal mg/dl Normal [facility] White blood cell (WBC) count Ordered By: Salavdor Campbell on 10-24-2024 White blood cell (WBC) count 6.7 K/mm3 4.4-11.0 [facility] White blood cell countOrdere d By: Salvador Campbell on 10-24-2024 White blood cell count 0 SEEN /hpf [facility] pH (U)Ordered By: Padmini on 10-24-2024 Urine pH 6.0 5.0 - 8.0 [facility] Absolute neutrophil countOrd ered By: Lizet Linares on 10-20-2024 Absolute neutrophil count 3.2 X10^3/uL 2.0-7.7 [facility] Basophil percentageOrdered B y: Lizet Linares on 10-20-2024 Basophil percentage 0.7 % 0-1 [facility] Blood urea nitrogen (BUN)/cr eatinine ratioOrdered By: Lizet Linares on 10-20-2024 Blood urea nitrogen (BUN)/creatinine ratio 22.0 RATIO High 10-20 [facility] Calcium [Mass/Vol]Ordered By : Lizet Linares on 10-20-2024 Serum or plasma calcium measurement (mass/volume) 8.4 mg/dL Low 8.5-10.1 [facility] Carbon dioxide measurementOr dered By: Lizet Linares on 10-20-2024 Carbon dioxide measurement 27.0 mmol/L 21.0-32.0 [facility] Chloride measurementOrdered By: Lizet Linares on 10-20-2024 Chloride measurement 102 mmol/L 98-107 [facility] Creatinine [Mass/Vol]Ordered By: Lizet Linares on 10-20-2024 Serum or plasma creatinine measurement (mass/volume) 1.27 mg/dL High 0.55-1.02 [facility] Eosinophil percentageOrdered By: Lizet Linares on 10-20-2024 Eosinophil percentage 3.1 % 0-5 [facility] Erythrocyte distribution wid th (RBC) [Ratio]Ordered By: Lizet Linares on 10-20-2024 Erythrocyte distribution width ratio 13.6 % 11.6-14.6 [facility] Erythrocyte distribution wid th standard deviationOrdered By: Lizet Linares on 10-20-2024 Erythrocyte distribution width standard deviation 44.0 fl High 35.1-43.9 [facility] Estimated glomerular filtrat ion rate (GFR) AmericanOrdered By: Lizet Linares on 10-20-2024 Estimated glomerular filtration rate (GFR) 55 mL/min Low >60 [facility] Glomerular filtration rate ( GFR) estimationOrdered By: Lizet Linares on 10-20-2024 Glomerular filtration rate (GFR) estimation 45 mL/min Low >60 [facility] Glucose measurementOrdered B y: Lizet Linares on 10-20-2024 Glucose measurement 277 mg/dL High 74-106 [facility] Hematocrit Auto (Bld) [Volum e fraction]Ordered By: Lizet Linares on 10-20-2024 Automated blood hematocrit (percentage) 30.6 % Low 37-47 [facility] Hemoglobin measurementOrdere d By: Lizet Linraes on 10-20-2024 Hemoglobin measurement 9.6 g/dL Low 12.0-15.0 [facility] Immature granulocytes/100 WB C Auto (Bld)Ordered By: Lizet Linares on 10-20-2024 Automated immature granulocyte percentage 0.300 % 0.0-0.9 [facility] Lymphocytes Auto (Unsp spec) [#/Vol]Ordered By: Lizet Linares on 10-20-2024 Absolute lymphocyte count 2.38 X10^3/uL 0.83-4. 51 [facility] Lymphocytes/100 WBC Auto (Un sp spec)Ordered By: Lizet Linares on 10-20-2024 Automated lymphocyte count as percentage of total leukocytes 38.9 % 19-41 [facility] MCV (RBC) [Entitic vol]Order ed By: Lizet Linares on 10-20-2024 MCV (mean corpuscular volume) determination 88.7 fL 81-99 [facility] Mean corpuscular hemoglobin (MCH) determinationOrdered By: Lizet Linares on 10-20-2024 Mean corpuscular hemoglobin (MCH) determination 27.8 pg 27.0-32.0 [facility] Mean corpuscular hemoglobin concentration (MCHC) determinationOrdered By: Lizet Linares on 10-20-2024 Mean corpuscular hemoglobin concentration (MCHC) determination 31.4 g/dL Low 32-36 [facility] Mean platelet volume determi nationOrdered By: Lizet Linares on 10-20-2024 Mean platelet volume determination 9.8 fl 6.2-12.0 [facility] Monocyte percentageOrdered B y: Lizet Linares on 10-20-2024 Monocyte percentage 5.2 % 0-10 [facility] Neutrophil percentageOrdered By: Lizet Linares on 10-20-2024 Neutrophil percentage 51.8 % 47-70 [facility] Nucleated red blood cell per centageOrdered By: Lizet Linares on 10-20-2024 Nucleated red blood cell percentage 0 % 0-5 [facility] Platelet countOrdered By: Junie Linares on 10-20-2024 Platelet count 325 K/mm3 150-450 [facility] Potassium measurementOrdered By: Lizet Linares on 10-20-2024 Potassium measurement 3.9 mmol/L 3.5-5.1 [facility] RBC Auto (Bld) [#/Vol]Ordere d By: Lizet Linares on 10-20-2024 Automated blood erythrocyte count 3.45 M/mm3 Low 4.2-5.4 [facility] Serum anion gap measurementO rdered By: Lizet Linares on 10-20-2024 Serum anion gap measurement 6 5-15 [facility] Sodium levelOrdered By: Holly Linares on 10-20-2024 Sodium level 135 mmol/L Low 136-145 [facility] Urea nitrogen [Mass/Vol]Orde red By: Lizet Linares on 10-20-2024 Serum or plasma urea nitrogen measurement (mass/volume) 28 mg/dL High 7-18 [facility] White blood cell (WBC) count Ordered By: Lizet Linares on 10-20-2024 White blood cell (WBC) count 6.1 K/mm3 4.4-11.0 [facility] Absolute neutrophil countOrd ered By: Lizet Linares on 10-13-2024 Absolute neutrophil count 3.3 X10^3/uL 2.0-7.7 [facility] Basophil percentageOrdered B y: Lizet Linares on 10-13-2024 Basophil percentage 0.8 % 0-1 [facility] Blood urea nitrogen (BUN)/cr eatinine ratioOrdered By: Lizet Linares on 10-13-2024 Blood urea nitrogen (BUN)/creatinine ratio 13.7 RATIO 10-20 [facility] Calcium [Mass/Vol]Ordered By : Lizet Linares on 10-13-2024 Serum or plasma calcium measurement (mass/volume) 9.0 mg/dL 8.5-10.1 [facility] Carbon dioxide measurementOr dered By: Lizet Linares on 10-13-2024 Carbon dioxide measurement 28.0 mmol/L 21.0-32.0 [facility] Chloride measurementOrdered By: Lizet Linares on 10-13-2024 Chloride measurement 103 mmol/L 98-107 [facility] Creatinine [Mass/Vol]Ordered By: Lizet Linares on 10-13-2024 Serum or plasma creatinine measurement (mass/volume) 1.31 mg/dL High 0.55-1.02 [facility] Eosinophil percentageOrdered By: Lizet Linares on 10-13-2024 Eosinophil percentage 2.5 % 0-5 [facility] Erythrocyte distribution wid th (RBC) [Ratio]Ordered By: Lizet Linares on 10-13-2024 Erythrocyte distribution width ratio 13.8 % 11.6-14.6 [facility] Erythrocyte distribution wid th standard deviationOrdered By: Lizet Linares on 10-13-2024 Erythrocyte distribution width standard deviation 44.6 fl High 35.1-43.9 [facility] Estimated glomerular filtrat ion rate (GFR) AmericanOrdered By: Lizet Linares on 10-13-2024 Estimated glomerular filtration rate (GFR) 53 mL/min Low >60 [facility] Glomerular filtration rate ( GFR) estimationOrdered By: Lizet Linares on 10-13-2024 Glomerular filtration rate (GFR) estimation 44 mL/min Low >60 [facility] Glucose measurementOrdered B y: Lizet Linares on 10-13-2024 Glucose measurement 234 mg/dL High 74-106 [facility] Hematocrit Auto (Bld) [Volum e fraction]Ordered By: Lizet Linares on 10-13-2024 Automated blood hematocrit (percentage) 34.2 % Low 37-47 [facility] Hemoglobin measurementOrdere d By: Lizet Linares on 10-13-2024 Hemoglobin measurement 10.9 g/dL Low 12.0-15.0 [facility] Immature granulocytes/100 WB C Auto (Bld)Ordered By: Lizet Linares on 10-13-2024 Automated immature granulocyte percentage 0.500 % 0.0-0.9 [facility] Lymphocytes Auto (Unsp spec) [#/Vol]Ordered By: Lizet Linares on 10-13-2024 Absolute lymphocyte count 2.10 X10^3/uL 0.83-4. 51 [facility] Lymphocytes/100 WBC Auto (Un sp spec)Ordered By: Lizet Linares on 10-13-2024 Automated lymphocyte count as percentage of total leukocytes 35.3 % 19-41 [facility] MCV (RBC) [Entitic vol]Order ed By: Lizet Linares on 10-13-2024 MCV (mean corpuscular volume) determination 88.6 fL 81-99 [facility] Mean corpuscular hemoglobin (MCH) determinationOrdered By: Lizet Linares on 10-13-2024 Mean corpuscular hemoglobin (MCH) determination 28.2 pg 27.0-32.0 [facility] Mean corpuscular hemoglobin concentration (MCHC) determinationOrdered By: Lizet Linares on 10-13-2024 Mean corpuscular hemoglobin concentration (MCHC) determination 31.9 g/dL Low 32-36 [facility] Mean platelet volume determi nationOrdered By: Lizet Linares on 10-13-2024 Mean platelet volume determination 9.7 fl 6.2-12.0 [facility] Monocyte percentageOrdered B y: Lizet Linares on 10-13-2024 Monocyte percentage 6.2 % 0-10 [facility] Neutrophil percentageOrdered By: Lizet Linares on 10-13-2024 Neutrophil percentage 54.7 % 47-70 [facility] Nucleated red blood cell per centageOrdered By: Lizet Linares on 10-13-2024 Nucleated red blood cell percentage 0 % 0-5 [facility] Platelet countOrdered By: Junie Linares on 10-13-2024 Platelet count 361 K/mm3 150-450 [facility] Potassium measurementOrdered By: Lizet Linares on 10-13-2024 Potassium measurement 3.9 mmol/L 3.5-5.1 [facility] RBC Auto (Bld) [#/Vol]Ordere d By: Lizet Linares on 10-13-2024 Automated blood erythrocyte count 3.86 M/mm3 Low 4.2-5.4 [facility] Serum anion gap measurementO rdered By: Lizet Linares on 10-13-2024 Serum anion gap measurement 5 5-15 [facility] Sodium levelOrdered By: Holly Linares on 10-13-2024 Sodium level 136 mmol/L 136-145 [facility] Urea nitrogen [Mass/Vol]Orde red By: Lizet Linares on 10-13-2024 Serum or plasma urea nitrogen measurement (mass/volume) 18 mg/dL 7-18 [facility] White blood cell (WBC) count Ordered By: Lizet Linares on 10-13-2024 White blood cell (WBC) count 6.0 K/mm3 4.4-11.0 [facility] Absolute neutrophil countOrd ered By: Lizet Linares on 10-06-2024 Absolute neutrophil count 2.8 X10^3/uL 2.0-7.7 [facility] Basophil percentageOrdered B y: Lizet Linares on 10-06-2024 Basophil percentage 0.5 % 0-1 [facility] Blood urea nitrogen (BUN)/cr eatinine ratioOrdered By: Lizet Linares on 10-06-2024 Blood urea nitrogen (BUN)/creatinine ratio 15.5 RATIO 10-20 [facility] Calcium [Mass/Vol]Ordered By : Lizet Linares on 10-06-2024 Serum or plasma calcium measurement (mass/volume) 8.6 mg/dL 8.5-10.1 [facility] Carbon dioxide measurementOr dered By: Lizet Linares on 10-06-2024 Carbon dioxide measurement 26.0 mmol/L 21.0-32.0 [facility] Chloride measurementOrdered By: Lizet Linares on 10-06-2024 Chloride measurement 106 mmol/L 98-107 [facility] Creatinine [Mass/Vol]Ordered By: Lizet Linares on 10-06-2024 Serum or plasma creatinine measurement (mass/volume) 1.16 mg/dL High 0.55-1.02 [facility] Eosinophil percentageOrdered By: Lizet Linares on 10-06-2024 Eosinophil percentage 3.4 % 0-5 [facility] Erythrocyte distribution wid th (RBC) [Ratio]Ordered By: Lizet Linares on 10-06-2024 Erythrocyte distribution width ratio 14.0 % 11.6-14.6 [facility] Erythrocyte distribution wid th standard deviationOrdered By: Lizet Linares on 10-06-2024 Erythrocyte distribution width standard deviation 45.4 fl High 35.1-43.9 [facility] Estimated glomerular filtrat ion rate (GFR) AmericanOrdered By: Lizet Linares on 10-06-2024 Estimated glomerular filtration rate (GFR) 61 mL/min >60 [facility] Glomerular filtration rate ( GFR) estimationOrdered By: Lizet Linares 10-06-2024 Glomerular filtration rate (GFR) estimation 50 mL/min Low >60 [facility] Glucose measurementOrdered B y: Lizet Linares on 10-06-2024 Glucose measurement 204 mg/dL High 74-106 [facility] Hematocrit Auto (Bld) [Volum e fraction]Ordered By: Lizet Linares 10-06-2024 Automated blood hematocrit (percentage) 30.7 % Low 37-47 [facility] Hemoglobin measurementOrdere d By: Lizet Linares 10-06-2024 Hemoglobin measurement 9.8 g/dL Low 12.0-15.0 [facility] Immature granulocytes/100 WB C Auto (Bld)Ordered By: Lizet Linares on 10-06-2024 Automated immature granulocyte percentage 0.300 % 0.0-0.9 [facility] Lymphocytes Auto (Unsp spec) [#/Vol]Ordered By: Lizet Linares 10-06-2024 Absolute lymphocyte count 2.46 X10^3/uL 0.83-4. 51 [facility] Lymphocytes/100 WBC Auto (Un sp spec)Ordered By: Lizet Linares 10-06-2024 Automated lymphocyte count as percentage of total leukocytes 41.8 % High 19-41 [facility] MCV (RBC) [Entitic vol]Order ed By: Lizet Linares on 10-06-2024 MCV (mean corpuscular volume) determination 89.2 fL 81-99 [facility] Mean corpuscular hemoglobin (MCH) determinationOrdered By: Lizet Linares on 10-06-2024 Mean corpuscular hemoglobin (MCH) determination 28.5 pg 27.0-32.0 [facility] Mean corpuscular hemoglobin concentration (MCHC) determinationOrdered By: Lizet Linares on 10-06-2024 Mean corpuscular hemoglobin concentration (MCHC) determination 31.9 g/dL Low 32-36 [facility] Mean platelet volume determi nationOrdered By: Lizet Linares on 10-06-2024 Mean platelet volume determination 9.4 fl 6.2-12.0 [facility] Monocyte percentageOrdered B y: Lizet Linares on 10-06-2024 Monocyte percentage 7.1 % 0-10 [facility] Neutrophil percentageOrdered By: Lizet Linares on 10-06-2024 Neutrophil percentage 46.9 % Low 47-70 [facility] Nucleated red blood cell per centageOrdered By: Lizet Linares on 10-06-2024 Nucleated red blood cell percentage 0 % 0-5 [facility] Platelet countOrdered By: Junie Linares on 10-06-2024 Platelet count 330 K/mm3 150-450 [facility] Potassium measurementOrdered By: Lizet Linares on 10-06-2024 Potassium measurement 3.9 mmol/L 3.5-5.1 [facility] RBC Auto (Bld) [#/Vol]Ordere d By: Lizet Linares on 10-06-2024 Automated blood erythrocyte count 3.44 M/mm3 Low 4.2-5.4 [facility] Serum anion gap measurementO rdered By: Lizet Linares on 10-06-2024 Serum anion gap measurement 6 5-15 [facility] Sodium levelOrdered By: Holly Linares on 10-06-2024 Sodium level 138 mmol/L 136-145 [facility] Urea nitrogen [Mass/Vol]Orde red By: Lizet Linares on 10-06-2024 Serum or plasma urea nitrogen measurement (mass/volume) 18 mg/dL 7-18 [facility] White blood cell (WBC) count Ordered By: Lizet Linares on 10-06-2024 White blood cell (WBC) count 5.9 K/mm3 4.4-11.0 [facility] Absolute neutrophil countOrd ered By: Lizet Linares on 09-29-2024 Absolute neutrophil count 3.1 X10^3/uL 2.0-7.7 [facility] Basophil percentageOrdered B y: Lizet Linares on 09-29-2024 Basophil percentage 0.5 % 0-1 [facility] Blood urea nitrogen (BUN)/cr eatinine ratioOrdered By: Lizet Linares on 09-29-2024 Blood urea nitrogen (BUN)/creatinine ratio 18.3 RATIO 10-20 [facility] Calcium [Mass/Vol]Ordered By : Lizet Linares on 09-29-2024 Serum or plasma calcium measurement (mass/volume) 8.6 mg/dL 8.5-10.1 [facility] Carbon dioxide measurementOr dered By: Lizet Linares on 09-29-2024 Carbon dioxide measurement 26.0 mmol/L 21.0-32.0 [facility] Chloride measurementOrdered By: Lizet Linares on 09-29-2024 Chloride measurement 105 mmol/L 98-107 [facility] Creatinine [Mass/Vol]Ordered By: Lizet Linares on 09-29-2024 Serum or plasma creatinine measurement (mass/volume) 1.20 mg/dL High 0.55-1.02 [facility] Eosinophil percentageOrdered By: Lizet Linares on 09-29-2024 Eosinophil percentage 1.7 % 0-5 [facility] Erythrocyte distribution wid th (RBC) [Ratio]Ordered By: Lizet Linares on 09-29-2024 Erythrocyte distribution width ratio 14.1 % 11.6-14.6 [facility] Erythrocyte distribution wid th standard deviationOrdered By: Lizet Linares on 09-29-2024 Erythrocyte distribution width standard deviation 45.8 fl High 35.1-43.9 [facility] Estimated glomerular filtrat ion rate (GFR) AmericanOrdered By: Lizet Linares on 09-29-2024 Estimated glomerular filtration rate (GFR) 59 mL/min Low >60 [facility] Glomerular filtration rate ( GFR) estimationOrdered By: Lizet Linares on 09-29-2024 Glomerular filtration rate (GFR) estimation 49 mL/min Low >60 [facility] Glucose measurementOrdered B y: Lizet Linares on 09-29-2024 Glucose measurement 193 mg/dL High 74-106 [facility] Hematocrit Auto (Bld) [Volum e fraction]Ordered By: Lizet Linares on 09-29-2024 Automated blood hematocrit (percentage) 30.8 % Low 37-47 [facility] Hemoglobin measurementOrdere d By: Lizet Linares on 09-29-2024 Hemoglobin measurement 9.8 g/dL Low 12.0-15.0 [facility] Immature granulocytes/100 WB C Auto (Bld)Ordered By: Lizet Linares on 09-29-2024 Automated immature granulocyte percentage 0.500 % 0.0-0.9 [facility] Lymphocytes Auto (Unsp spec) [#/Vol]Ordered By: Lizet Linares on 09-29-2024 Absolute lymphocyte count 2.13 X10^3/uL 0.83-4. 51 [facility] Lymphocytes/100 WBC Auto (Un sp spec)Ordered By: Lizet Linares on 09-29-2024 Automated lymphocyte count as percentage of total leukocytes 37.2 % 19-41 [facility] MCV (RBC) [Entitic vol]Order ed By: Lizet Linares on 09-29-2024 MCV (mean corpuscular volume) determination 89.5 fL 81-99 [facility] Mean corpuscular hemoglobin (MCH) determinationOrdered By: Lizet Linares on 09-29-2024 Mean corpuscular hemoglobin (MCH) determination 28.5 pg 27.0-32.0 [facility] Mean corpuscular hemoglobin concentration (MCHC) determinationOrdered By: Lizet Linares on 09-29-2024 Mean corpuscular hemoglobin concentration (MCHC) determination 31.8 g/dL Low 32-36 [facility] Mean platelet volume determi nationOrdered By: Lizet Linares on 09-29-2024 Mean platelet volume determination 9.6 fl 6.2-12.0 [facility] Monocyte percentageOrdered B y: Lizet Linares on 09-29-2024 Monocyte percentage 6.5 % 0-10 [facility] Neutrophil percentageOrdered By: Lizet Linares on 09-29-2024 Neutrophil percentage 53.6 % 47-70 [facility] Nucleated red blood cell per centageOrdered By: Lizet Linares on 09-29-2024 Nucleated red blood cell percentage 0 % 0-5 [facility] Platelet countOrdered By: Junie Linares on 09-29-2024 Platelet count 318 K/mm3 150-450 [facility] Potassium measurementOrdered By: Lizet Linares on 09-29-2024 Potassium measurement 3.8 mmol/L 3.5-5.1 [facility] RBC Auto (Bld) [#/Vol]Ordere d By: Lizet Linares on 09-29-2024 Automated blood erythrocyte count 3.44 M/mm3 Low 4.2-5.4 [facility] Serum anion gap measurementO rdered By: Lizet Linares on 09-29-2024 Serum anion gap measurement 7 5-15 [facility] Sodium levelOrdered By: Holly Linares on 09-29-2024 Sodium level 138 mmol/L 136-145 [facility] Urea nitrogen [Mass/Vol]Orde red By: Lizet Linares on 09-29-2024 Serum or plasma urea nitrogen measurement (mass/volume) 22 mg/dL High 7-18 [facility] White blood cell (WBC) count Ordered By: Lizet Linares on 09-29-2024 White blood cell (WBC) count 5.7 K/mm3 4.4-11.0 [facility] Absolute lymphocyte countOrd ered By: Lizet Linares on 02-25-2024 Lymphocytes Auto (Unsp spec) [#/Vol] 2.72 10*3/uL 0.83-4.51 [facility] Automated lymphocyte count a s percentage of total leukocytesOrdered By: Lizet Linares on 02-25-2024 Lymphocytes/100 WBC Auto (Unsp spec) 38.5 % 19-41 [facility] Basophil percentageOrdered B y: Lizet Linares on 02-25-2024 Basophil percentage 10.6 g/dL 12.0-15.0 [facility] Basophil percentage 222 mg/dL 74-106 [facility] Basophil percentage 6.5 g/dL 6.4-8.2 [facility] Basophil percentage 0.30 mg/dL 0.20-1.00 [facility] Basophil percentage 138 mmol/L 136-145 [facility] Basophil percentage 4.0 mmol/L 3.5-5.1 [facility] Basophil percentage 105 mmol/L 98-107 [facility] Basophils (Bld) [#/Vol] 7.1 10*3/uL 4.4-11.0 [facility] Basophils (Bld) [#/Vol] 3.8 10*3/uL 2.0-7.7 [facility] Basophils/100 WBC (Bld) 53.5 % 47-70 [facility] Basophils/100 WBC (Bld) 5.4 % 0-10 [facility] Basophils/100 WBC (Bld) 1.8 % 0-5 [facility] Basophils/100 WBC (Bld) 0.4 % 0-1 [facility] Determination of erythrocyte mean corpuscular volume (MCV)Ordered By: Lizet Linares on 02-25-2024 MCV (RBC) [Entitic vol] 89.0 fL 81-99 [facility] Direct bilirubinOrdered By: christabarranquitasnatasha Linares on 02-25-2024 Bilirubin.direct [Mass/Vol] 0.11 mg/dL 0.00-0.30 [facility] Erythrocyte distribution wid th ratioOrdered By: Lizet Linares on 02-25-2024 Erythrocyte distribution width (RBC) [Ratio] 13.6 % 11.6-14.6 [facility] Erythrocyte distribution wid th standard deviationOrdered By: Lizet Linares on 02-25-2024 Erythrocyte distribution width (RBC) [Entitic vol] 43.9 fL 35.1-43.9 [facility] Hematocrit Auto (Bld) [Volum e fraction]Ordered By: Lizet Linares on 02-25-2024 Hematocrit (Bld) [Volume fraction] 34.1 % 37-47 [facility] Immature granulocytes/100 WB C Auto (Bld)Ordered By: Lizet Linares on 02-25-2024 Immature granulocytes/100 WBC (Bld) 0.400 % 0.0-0.9 [facility] No Panel InformationOrdered By: Lizet Linares on 02-25-2024 27.7 pg 27.0-32.0 [facility] 31.1 g/dL 32-36 [facility] 335 K/mm3 150-450 [facility] 9.2 fl 6.2-12.0 [facility] 0 % 0-5 [facility] 50 mL/min >60 [facility] 61 mL/min >60 [facility] 12.8 RATIO 10-20 [facility] 3.8 g/dL 2.2-4.2 [facility] 45 U/L 45-117 [facility] 20 U/L 13-56 [facility] 25.0 mmol/L 21.0-32.0 [facility] RBC Auto (Bld) [#/Vol]Ordere d By: Lizet Linares on 02-25-2024 RBC (Bld) [#/Vol] 3.83 10*6/uL 4.2-5.4 [facility] Serum or plasma calcium tai urement (mass/volume)Ordered By: Lizet Linares on 02-25-2024 Calcium [Mass/Vol] 8.9 mg/dL 8.5-10.1 [facility] Serum or plasma creatinine m easurement (mass/volume)Ordered By: Lizet Linares on 02-25-2024 Creatinine [Mass/Vol] 1.17 mg/dL 0.55-1.02 [facility] Serum or plasma thyroid stim ulating hormone (TSH) measurement (units/volume)Ordered By: Lizet Linares on 02-25-2024 TSH Qn 0.07 uIU/mL 0.358-3.74 [facility] Serum or plasma urea nitroge n measurement (mass/volume)Ordered By: Lizet Linares on 02-25-2024 Urea nitrogen [Mass/Vol] 15 mg/dL 7-18 [facility] Thin prep Papanicolaou smear with manual screeningOrdered By: [facility] on 02-25-2024 Thin prep Papanicolaou smear with manual screening 2.7 g/dL 3.2-5.0 [facility] Thin prep Papanicolaou smear with manual screening 15 U/L 15-37 [facility] Thin prep Papanicolaou smear with manual screening 8 5-15 [facility] Whole blood hemoglobin A1c/t otal hemoglobin ratio (mass fraction)Ordered By: Lizet Linares on 02-25-2024 HbA1c (Bld) [Mass fraction] 6.8 % 3.8-5.6 [facility] Absolute lymphocyte countOrd ered By: Lizet Linares on 02-18-2024 Lymphocytes Auto (Unsp spec) [#/Vol] 2.70 10*3/uL 0.83-4.51 [facility] Automated lymphocyte count a s percentage of total leukocytesOrdered By: Lizet Linares on 02-18-2024 Lymphocytes/100 WBC Auto (Unsp spec) 42.6 % 19-41 [facility] Basophil percentageOrdered B y: Lizet Linares on 02-18-2024 Basophil percentage 11.0 g/dL 12.0-15.0 [facility] Basophil percentage 180 mg/dL 74-106 [facility] Basophil percentage 139 mmol/L 136-145 [facility] Basophil percentage 4.2 mmol/L 3.5-5.1 [facility] Basophil percentage 107 mmol/L 98-107 [facility] Basophils (Bld) [#/Vol] 6.3 10*3/uL 4.4-11.0 [facility] Basophils (Bld) [#/Vol] 3.1 10*3/uL 2.0-7.7 [facility] Basophils/100 WBC (Bld) 48.9 % 47-70 [facility] Basophils/100 WBC (Bld) 6.0 % 0-10 [facility] Basophils/100 WBC (Bld) 1.3 % 0-5 [facility] Basophils/100 WBC (Bld) 0.6 % 0-1 [facility] Determination of erythrocyte mean corpuscular volume (MCV)Ordered By: Lizet Linares on 02-18-2024 MCV (RBC) [Entitic vol] 89.1 fL 81-99 [facility] Erythrocyte distribution wid th ratioOrdered By: Lizet Linares on 02-18-2024 Erythrocyte distribution width (RBC) [Ratio] 13.2 % 11.6-14.6 [facility] Erythrocyte distribution wid th standard deviationOrdered By: Lizet Linares on 02-18-2024 Erythrocyte distribution width (RBC) [Entitic vol] 43.1 fL 35.1-43.9 [facility] Hematocrit Auto (Bld) [Volum e fraction]Ordered By: Lizet Linares on 02-18-2024 Hematocrit (Bld) [Volume fraction] 34.2 % 37-47 [facility] Immature granulocytes/100 WB C Auto (Bld)Ordered By: Lizet Linares on 02-18-2024 Immature granulocytes/100 WBC (Bld) 0.600 % 0.0-0.9 [facility] No Panel InformationOrdered By: Lizet Linares on 02-18-2024 28.6 pg 27.0-32.0 [facility] 32.2 g/dL 32-36 [facility] 337 K/mm3 150-450 [facility] 9.3 fl 6.2-12.0 [facility] 0 % 0-5 [facility] 45 mL/min >60 [facility] 55 mL/min >60 [facility] 14.8 RATIO 10-20 [facility] 26.0 mmol/L 21.0-32.0 [facility] RBC Auto (Bld) [#/Vol]Ordere d By: Lizet Linares on 02-18-2024 RBC (Bld) [#/Vol] 3.84 10*6/uL 4.2-5.4 [facility] Serum or plasma calcium tai urement (mass/volume)Ordered By: Juniechristajanellnatasha Crossjntal on 02-18-2024 Calcium [Mass/Vol] 8.8 mg/dL 8.5-10.1 [facility] Serum or plasma creatinine m easurement (mass/volume)Ordered By: Juniechristajanellnatasha Crossjntal on 02-18-2024 Creatinine [Mass/Vol] 1.28 mg/dL 0.55-1.02 [facility] Serum or plasma urea nitroge n measurement (mass/volume)Ordered By: Juniechritsajanellnatasha Crossjntal on 02-18-2024 Urea nitrogen [Mass/Vol] 19 mg/dL 7-18 [facility] Thin prep Papanicolaou smear with manual screeningOrdered By: Juniechristajanellnatasha Crossjntal on 02-18-2024 Thin prep Papanicolaou smear with manual screening 6 5-15 [facility] Absolute lymphocyte countOrd ered By: Juniechristajanellnatasha Crosspreet on 02-11-2024 Lymphocytes Auto (Unsp spec) [#/Vol] 2.53 10*3/uL 0.83-4.51 [facility] Automated lymphocyte count a s percentage of total leukocytesOrdered By: Hollyjanellnatasha Crossjntal on 02-11-2024 Lymphocytes/100 WBC Auto (Unsp spec) 35.3 % 19-41 [facility] Basophil percentageOrdered B y: Lizet Portertal on 02-11-2024 Basophil percentage 11.3 g/dL 12.0-15.0 [facility] Basophil percentage 218 mg/dL 74-106 [facility] Basophil percentage 136 mmol/L 136-145 [facility] Basophil percentage 3.9 mmol/L 3.5-5.1 [facility] Basophil percentage 103 mmol/L 98-107 [facility] Basophils (Bld) [#/Vol] 7.2 10*3/uL 4.4-11.0 [facility] Basophils (Bld) [#/Vol] 3.9 10*3/uL 2.0-7.7 [facility] Basophils/100 WBC (Bld) 54.8 % 47-70 [facility] Basophils/100 WBC (Bld) 7.3 % 0-10 [facility] Basophils/100 WBC (Bld) 1.1 % 0-5 [facility] Basophils/100 WBC (Bld) 0.7 % 0-1 [facility] Determination of erythrocyte mean corpuscular volume (MCV)Ordered By: Lizet Linares on 02-11-2024 MCV (RBC) [Entitic vol] 88.9 fL 81-99 [facility] Erythrocyte distribution wid th ratioOrdered By: Hollybarranquitasnatasha Linares on 02-11-2024 Erythrocyte distribution width (RBC) [Ratio] 13.3 % 11.6-14.6 [facility] Erythrocyte distribution wid th standard deviationOrdered By: Lizet Linares on 02-11-2024 Erythrocyte distribution width (RBC) [Entitic vol] 43.8 fL 35.1-43.9 [facility] Hematocrit Auto (Bld) [Volum e fraction]Ordered By: Lizet Linares on 02-11-2024 Hematocrit (Bld) [Volume fraction] 35.4 % 37-47 [facility] Immature granulocytes/100 WB C Auto (Bld)Ordered By: Lizet Linares on 02-11-2024 Immature granulocytes/100 WBC (Bld) 0.800 % 0.0-0.9 [facility] No Panel InformationOrdered By: Lizet Linares on 02-11-2024 28.4 pg 27.0-32.0 [facility] 31.9 g/dL 32-36 [facility] 430 K/mm3 150-450 [facility] 9.2 fl 6.2-12.0 [facility] 0 % 0-5 [facility] 59 mL/min >60 [facility] 72 mL/min >60 [facility] 18.8 RATIO 10-20 [facility] 26.0 mmol/L 21.0-32.0 [facility] RBC Auto (Bld) [#/Vol]Ordere d By: Lizet Linares on 02-11-2024 RBC (Bld) [#/Vol] 3.98 10*6/uL 4.2-5.4 [facility] Serum or plasma calcium tai urement (mass/volume)Ordered By: Lizet Linares on 02-11-2024 Calcium [Mass/Vol] 8.5 mg/dL 8.5-10.1 [facility] Serum or plasma creatinine m easurement (mass/volume)Ordered By: Lizet Linares on 02-11-2024 Creatinine [Mass/Vol] 1.01 mg/dL 0.55-1.02 [facility] Serum or plasma urea nitroge n measurement (mass/volume)Ordered By: Lizet Linares on 02-11-2024 Urea nitrogen [Mass/Vol] 19 mg/dL 7-18 [facility] Thin prep Papanicolaou smear with manual screeningOrdered By: Lizet Linares on 02-11-2024 Thin prep Papanicolaou smear with manual screening 7 5-15 [facility] Bacteria identified Cx Nom ( U)Ordered By: Lizet Linares on 02-09-2024 Culture, urine Proteus mirabilis [facility] Bilirubin Test strip Ql (U)O rdered By: Lizet Linares on 02-09-2024 Bilirubin Ql (U) Negative Negative [facility] Ketones Test strip Ql (U)Ord ered By: Lizet Linares on 02-09-2024 Ketones Ql (U) Negative Negative [facility] Nitrite Test strip Ql (U)Ord ered By: Lizet Linares on 02-09-2024 Nitrite Ql (U) Positive Negative [facility] Protein Test strip Ql (U)Ord ered By: Lizet Linares on 02-09-2024 Protein Ql (U) 15 mg/dl Negative [facility] Urine blood detectionOrdered By: Lizet Linares on 02-09-2024 RBC Ql (U) 10 /ul Negative [facility] Urine clarityOrdered By: Bart Linares on 02-09-2024 Clarity (U) Clear Clear [facility] Urine color determinationOrd ered By: Lizet Linares on 02-09-2024 Color (U) Yellow Yellow [facility] Urine glucose detectionOrder ed By: Lizet Linares on 02-09-2024 Glucose Ql (U) 100 mg/dl Normal [facility] Urine leukocyte esterase det ection by dipstickOrdered By: Lizet Linares on 02-09-2024 Leukocyte esterase Test strip Ql (U) Negative Negative [facility] Urine pHOrdered By: Frank Linares on 02-09-2024 pH (U) 7.0 [pH] 5.0 - 8.0 [facility] Urine specific gravity measu rementOrdered By: marcelle Linares on 02-09-2024 Specific gravity (U) [Rel density] 1.010 1.002-1.03 0 [facility] Urine urobilinogen measureme ntOrdered By: Lizet Linares on 02-09-2024 Urobilinogen Ql (U) Normal mg/dl Normal [facility] Absolute lymphocyte countOrd ered By: Lizet Linares on 02-04-2024 Lymphocytes Auto (Unsp spec) [#/Vol] 3.24 10*3/uL 0.83-4.51 [facility] Automated lymphocyte count a s percentage of total leukocytesOrdered By: Lizet Linares on 02-04-2024 Lymphocytes/100 WBC Auto (Unsp spec) 57.7 % 19-41 [facility] Basophil percentageOrdered B y: Lizet Linares on 02-04-2024 Basophil percentage 11.8 g/dL 12.0-15.0 [facility] Basophil percentage 81 mg/dL 74-106 [facility] Basophil percentage 135 mmol/L 136-145 [facility] Basophil percentage 4.2 mmol/L 3.5-5.1 [facility] Basophil percentage 103 mmol/L 98-107 [facility] Basophils (Bld) [#/Vol] 5.6 10*3/uL 4.4-11.0 [facility] Basophils (Bld) [#/Vol] 2.0 10*3/uL 2.0-7.7 [facility] Basophils/100 WBC (Bld) 35.6 % 47-70 [facility] Basophils/100 WBC (Bld) 5.5 % 0-10 [facility] Basophils/100 WBC (Bld) 0.5 % 0-1 [facility] Blood manual differential co mment interpretation (narrative result)Ordered By: Lizet Linares on 02-04-2024 Manual differential comment Major (Bld) [Interp] SCANNED [facility] Determination of erythrocyte mean corpuscular volume (MCV)Ordered By: Lizet Linares on 02-04-2024 MCV (RBC) [Entitic vol] 89.6 fL 81-99 [facility] Erythrocyte distribution wid th ratioOrdered By: Lizet Linares on 02-04-2024 Erythrocyte distribution width (RBC) [Ratio] 13.7 % 11.6-14.6 [facility] Erythrocyte distribution wid th standard deviationOrdered By: Lizet Linares on 02-04-2024 Erythrocyte distribution width (RBC) [Entitic vol] 45.0 fL 35.1-43.9 [facility] Hematocrit Auto (Bld) [Volum e fraction]Ordered By: Lizet Linares on 02-04-2024 Hematocrit (Bld) [Volume fraction] 37.2 % 37-47 [facility] Immature granulocytes/100 WB C Auto (Bld)Ordered By: Lizet Linares on 02-04-2024 Immature granulocytes/100 WBC (Bld) 0.200 % 0.0-0.9 [facility] No Panel InformationOrdered By: Lizet Linares on 02-04-2024 28.4 pg 27.0-32.0 [facility] 31.7 g/dL 32-36 [facility] 317 K/mm3 150-450 [facility] 9.3 fl 6.2-12.0 [facility] 0 % 0-5 [facility] 1+ [facility] 53 mL/min >60 [facility] 64 mL/min >60 [facility] 15.3 RATIO 10-20 [facility] 27.0 mmol/L 21.0-32.0 [facility] RBC Auto (Bld) [#/Vol]Ordere d By: Lizet Linares on 02-04-2024 RBC (Bld) [#/Vol] 4.15 10*6/uL 4.2-5.4 [facility] Serum or plasma calcium tai urement (mass/volume)Ordered By: Lizet Linares on 02-04-2024 Calcium [Mass/Vol] 9.0 mg/dL 8.5-10.1 [facility] Serum or plasma creatinine m easurement (mass/volume)Ordered By: Lizet Tayjntal on 02-04-2024 Creatinine [Mass/Vol] 1.11 mg/dL 0.55-1.02 [facility] Serum or plasma urea nitroge n measurement (mass/volume)Ordered By: Lizet Linares on 02-04-2024 Urea nitrogen [Mass/Vol] 17 mg/dL 7-18 [facility] Thin prep Papanicolaou smear with manual screeningOrdered By: Lizet Linares on 02-04-2024 Thin prep Papanicolaou smear with manual screening 5 5-15 [facility] Absolute lymphocyte countOrd ered By: Lizet Linares on 02-02-2024 Lymphocytes Auto (Unsp spec) [#/Vol] 2.22 10*3/uL 0.83-4.51 [facility] Automated lymphocyte count a s percentage of total leukocytesOrdered By: Lizet Linares on 02-02-2024 Lymphocytes/100 WBC Auto (Unsp spec) 43.9 % 19-41 [facility] Basophil percentageOrdered B y: Lizet Linares on 02-02-2024 Basophil percentage 11.0 g/dL 12.0-15.0 [facility] Basophil percentage 95 mg/dL 74-106 [facility] Basophil percentage 6.3 g/dL 6.4-8.2 [facility] Basophil percentage 0.30 mg/dL 0.20-1.00 [facility] Basophil percentage 138 mmol/L 136-145 [facility] Basophil percentage 3.9 mmol/L 3.5-5.1 [facility] Basophil percentage 107 mmol/L 98-107 [facility] Basophils (Bld) [#/Vol] 5.1 10*3/uL 4.4-11.0 [facility] Basophils (Bld) [#/Vol] 2.4 10*3/uL 2.0-7.7 [facility] Basophils/100 WBC (Bld) 46.6 % 47-70 [facility] Basophils/100 WBC (Bld) 7.3 % 0-10 [facility] Basophils/100 WBC (Bld) 1.2 % 0-5 [facility] Basophils/100 WBC (Bld) 0.6 % 0-1 [facility] Determination of erythrocyte mean corpuscular volume (MCV)Ordered By: Lizet Linares on 02-02-2024 MCV (RBC) [Entitic vol] 90.0 fL 81-99 [facility] Erythrocyte distribution wid th ratioOrdered By: Hollybarranquitasnatasha Linares on 02-02-2024 Erythrocyte distribution width (RBC) [Ratio] 13.8 % 11.6-14.6 [facility] Erythrocyte distribution wid th standard deviationOrdered By: Lizet Linares on 02-02-2024 Erythrocyte distribution width (RBC) [Entitic vol] 45.3 fL 35.1-43.9 [facility] Hematocrit Auto (Bld) [Volum e fraction]Ordered By: Lizet Linares on 02-02-2024 Hematocrit (Bld) [Volume fraction] 34.3 % 37-47 [facility] Immature granulocytes/100 WB C Auto (Bld)Ordered By: Lizet Linares on 02-02-2024 Immature granulocytes/100 WBC (Bld) 0.400 % 0.0-0.9 [facility] No Panel InformationOrdered By: Lizet Linares on 02-02-2024 28.9 pg 27.0-32.0 [facility] 32.1 g/dL 32-36 [facility] 279 K/mm3 150-450 [facility] 9.4 fl 6.2-12.0 [facility] 0 % 0-5 [facility] 64 mL/min >60 [facility] 78 mL/min >60 [facility] 17.0 RATIO 10-20 [facility] 3.5 g/dL 2.2-4.2 [facility] 0.8 RATIO 0.9-2.4 [facility] 44 U/L 13-56 [facility] 26.0 mmol/L 21.0-32.0 [facility] RBC Auto (Bld) [#/Vol]Ordere d By: Lizet Linares on 02-02-2024 RBC (Bld) [#/Vol] 3.81 10*6/uL 4.2-5.4 [facility] Serum or plasma calcium tai urement (mass/volume)Ordered By: Lizet Linares on 02-02-2024 Calcium [Mass/Vol] 8.7 mg/dL 8.5-10.1 [facility] Serum or plasma creatinine m easurement (mass/volume)Ordered By: Lizet Linares on 02-02-2024 Creatinine [Mass/Vol] 0.94 mg/dL 0.55-1.02 [facility] Serum or plasma urea nitroge n measurement (mass/volume)Ordered By: Lizet Linares on 02-02-2024 Urea nitrogen [Mass/Vol] 16 mg/dL 7-18 [facility] Thin prep Papanicolaou smear with manual screeningOrdered By: Lizet Lianres on 02-02-2024 Thin prep Papanicolaou smear with manual screening 2.8 g/dL 3.2-5.0 [facility] Thin prep Papanicolaou smear with manual screening 42 U/L 15-37 [facility] Thin prep Papanicolaou smear with manual screening 5 5-15 [facility] Absolute lymphocyte countOrd ered By: Lizet Linares on 01-28-2024 Lymphocytes Auto (Unsp spec) [#/Vol] 2.40 10*3/uL 0.83-4.51 [facility] Automated lymphocyte count a s percentage of total leukocytesOrdered By: Lizet Linares on 01-28-2024 Lymphocytes/100 WBC Auto (Unsp spec) 43.0 % 19-41 [facility] Basophil percentageOrdered B y: Lizet Linares on 01-28-2024 Basophil percentage 11.4 g/dL 12.0-15.0 [facility] Basophil percentage 275 mg/dL 74-106 [facility] Basophil percentage 137 mmol/L 136-145 [facility] Basophil percentage 4.0 mmol/L 3.5-5.1 [facility] Basophil percentage 102 mmol/L 98-107 [facility] Basophils (Bld) [#/Vol] 5.6 10*3/uL 4.4-11.0 [facility] Basophils (Bld) [#/Vol] 2.6 10*3/uL 2.0-7.7 [facility] Basophils/100 WBC (Bld) 47.2 % 47-70 [facility] Basophils/100 WBC (Bld) 6.3 % 0-10 [facility] Basophils/100 WBC (Bld) 2.3 % 0-5 [facility] Basophils/100 WBC (Bld) 0.7 % 0-1 [facility] Determination of erythrocyte mean corpuscular volume (MCV)Ordered By: Lizet Linares on 01-28-2024 MCV (RBC) [Entitic vol] 90.2 fL 81-99 [facility] Erythrocyte distribution wid th ratioOrdered By: [facility] Taytal on 01-28-2024 Erythrocyte distribution width (RBC) [Ratio] 13.7 % 11.6-14.6 [facility] Erythrocyte distribution wid th standard deviationOrdered By: Hollybarranquitasnatasha Linares on 01-28-2024 Erythrocyte distribution width (RBC) [Entitic vol] 44.7 fL 35.1-43.9 [facility] Hematocrit Auto (Bld) [Volum e fraction]Ordered By: Lizet Linares on 01-28-2024 Hematocrit (Bld) [Volume fraction] 34.2 % 37-47 [facility] Immature granulocytes/100 WB C Auto (Bld)Ordered By: Lizet Linares on 01-28-2024 Immature granulocytes/100 WBC (Bld) 0.500 % 0.0-0.9 [facility] No Panel InformationOrdered By: Lizet Linares on 01-28-2024 30.1 pg 27.0-32.0 [facility] 33.3 g/dL 32-36 [facility] 298 K/mm3 150-450 [facility] 9.1 fl 6.2-12.0 [facility] 0 % 0-5 [facility] 53 mL/min >60 [facility] 64 mL/min >60 [facility] 16.1 RATIO 10-20 [facility] 28.0 mmol/L 21.0-32.0 [facility] RBC Auto (Bld) [#/Vol]Ordere d By: Lizet Linares on 01-28-2024 RBC (Bld) [#/Vol] 3.79 10*6/uL 4.2-5.4 [facility] Serum or plasma calcium tai urement (mass/volume)Ordered By: Lizet Linares on 01-28-2024 Calcium [Mass/Vol] 8.8 mg/dL 8.5-10.1 [facility] Serum or plasma creatinine m easurement (mass/volume)Ordered By: Lizet Linares on 01-28-2024 Creatinine [Mass/Vol] 1.12 mg/dL 0.55-1.02 [facility] Serum or plasma urea nitroge n measurement (mass/volume)Ordered By: Lizet Linares on 01-28-2024 Urea nitrogen [Mass/Vol] 18 mg/dL 7-18 [facility] Thin prep Papanicolaou smear with manual screeningOrdered By: Lizet Linares on 01-28-2024 Thin prep Papanicolaou smear with manual screening 7 5-15 [facility] Absolute lymphocyte countOrd ered By: Lziet Linares on 01-21-2024 Lymphocytes Auto (Unsp spec) [#/Vol] 2.61 10*3/uL 0.83-4.51 [facility] Automated lymphocyte count a s percentage of total leukocytesOrdered By: Lizet Linares on 01-21-2024 Lymphocytes/100 WBC Auto (Unsp spec) 38.7 % 19-41 [facility] Basophil percentageOrdered B y: Lizet Linares on 01-21-2024 Basophil percentage 10.7 g/dL 12.0-15.0 [facility] Basophil percentage 138 mg/dL 74-106 [facility] Basophil percentage 139 mmol/L 136-145 [facility] Basophil percentage 4.5 mmol/L 3.5-5.1 [facility] Basophil percentage 106 mmol/L 98-107 [facility] Basophils (Bld) [#/Vol] 6.8 10*3/uL 4.4-11.0 [facility] Basophils (Bld) [#/Vol] 3.6 10*3/uL 2.0-7.7 [facility] Basophils/100 WBC (Bld) 52.9 % 47-70 [facility] Basophils/100 WBC (Bld) 5.2 % 0-10 [facility] Basophils/100 WBC (Bld) 2.5 % 0-5 [facility] Basophils/100 WBC (Bld) 0.4 % 0-1 [facility] Determination of erythrocyte mean corpuscular volume (MCV)Ordered By: Lizet Linares on 01-21-2024 MCV (RBC) [Entitic vol] 91.7 fL 81-99 [facility] Erythrocyte distribution wid th ratioOrdered By: [facility] Taytal on 01-21-2024 Erythrocyte distribution width (RBC) [Ratio] 13.9 % 11.6-14.6 [facility] Erythrocyte distribution wid th standard deviationOrdered By: [facility] Taytal on 01-21-2024 Erythrocyte distribution width (RBC) [Entitic vol] 47.2 fL 35.1-43.9 [facility] Hematocrit Auto (Bld) [Volum e fraction]Ordered By: Hollybarranquitasnatasha Crosstal on 01-21-2024 Hematocrit (Bld) [Volume fraction] 33.1 % 37-47 [facility] Immature granulocytes/100 WB C Auto (Bld)Or[facility] By: [facility] on 01-21-2024 Immature granulocytes/100 WBC (Bld) 0.300 % 0.0-0.9 [facility] No Panel InformationOrdered By: christabarranquitasnatasha Linares on 01-21-2024 29.6 pg 27.0-32.0 [facility] 32.3 g/dL 32-36 [facility] 321 K/mm3 150-450 [facility] 9.1 fl 6.2-12.0 [facility] 0 % 0-5 [facility] 50 mL/min >60 [facility] 60 mL/min >60 [facility] 12.7 RATIO 10-20 [facility] 27.0 mmol/L 21.0-32.0 [facility] RBC Auto (Bld) [#/Vol]Ordere d By: Lizet Linares on 01-21-2024 RBC (Bld) [#/Vol] 3.61 10*6/uL 4.2-5.4 [facility] Serum or plasma calcium tai urement (mass/volume)Ordered By: Lizet Linares on 01-21-2024 Calcium [Mass/Vol] 8.9 mg/dL 8.5-10.1 [facility] Serum or plasma creatinine m easurement (mass/volume)Ordered By: Lizet Linares on 01-21-2024 Creatinine [Mass/Vol] 1.18 mg/dL 0.55-1.02 [facility] Serum or plasma urea nitroge n measurement (mass/volume)Ordered By: Lizet Linares on 01-21-2024 Urea nitrogen [Mass/Vol] 15 mg/dL 7-18 [facility] Thin prep Papanicolaou smear with manual screeningOrdered By: Lizet Linares on 01-21-2024 Thin prep Papanicolaou smear with manual screening 6 5-15 [facility] Absolute lymphocyte countOrd ered By: Ellis Peterson on 01-20-2024 Lymphocytes Auto (Unsp spec) [#/Vol] 2.86 10*3/uL 0.83-4.51 [facility] Automated lymphocyte count a s percentage of total leukocytesOrdered By: Ellis Peterson on 01-20-2024 Lymphocytes/100 WBC Auto (Unsp spec) 34.1 % 19-41 [facility] Basophil percentageOrdered B y: Ellis Peterson on 01-20-2024 Basophil percentage 11.3 g/dL 12.0-15.0 [facility] Basophil percentage 83 mg/dL 74-106 [facility] Basophil percentage 139 mmol/L 136-145 [facility] Basophil percentage 4.3 mmol/L 3.5-5.1 [facility] Basophil percentage 106 mmol[facility]L 98-[facility] Bas[facility] (Bld) [#/Vol] 8.4 10*3/uL 4.4-11.0 [facility] Basophils (Bld) [#/Vol] 4.9 10*3/uL 2.0-7.7 [facility] Basophils/100 WBC (Bld) 58.1 % 47-70 [facility] Basophils/100 WBC (Bld) 5.5 % 0-10 [facility] Basophils/100 WBC (Bld) 1.4 % 0-5 [facility] Basophils/100 WBC (Bld) 0.5 % 0-1 [facility] Determination of erythrocyte mean corpuscular volume (MCV)Ordered By: Ellis Peterson on 01-20-2024 MCV (RBC) [Entitic vol] 92.2 fL 81-99 [facility] Erythrocyte distribution wid th ratioOrdered By: Ellis Peterson on 01-20-2024 Erythrocyte distribution width (RBC) [Ratio] 14.0 % 11.6-14.6 [facility] Erythrocyte distribution wid th standard deviationOrdered By: Ellis Peterson on 01-20-2024 Erythrocyte distribution width (RBC) [Entitic vol] 47.4 fL 35.1-43.9 [facility] Hematocrit Auto (Bld) [Volum e fraction]Ordered By: Ellis Peterson on 01-20-2024 Hematocrit (Bld) [Volume fraction] 35.6 % 37-47 [facility] Immature granulocytes/100 WB C Auto (Bld)Ordered By: Ellis Peterson on 01-20-2024 Immature granulocytes/100 WBC (Bld) 0.400 % 0.0-0.9 [facility] No Panel InformationOrdered By: Ellis Peterson on 01-20-2024 21 pg/mL 3.0-54.0 [facility] 29.3 pg 27.0-32.0 [facility] 31.7 g/dL 32-36 [facility] 379 K/mm3 150-450 [facility] 9.0 fl 6.2-12.0 [facility] 0 % 0-5 [facility] 66 mL/min >60 [facility] 79 mL/min >60 [facility] 62.41 ml/min [facility] 14.0 RATIO 10-20 [facility] 28.0 mmol/L 21.0-32.0 [facility] RBC Auto (Bld) [#/Vol]Ordere d By: Ellis Peterson on 01-20-2024 RBC (Bld) [#/Vol] 3.86 10*6/uL 4.2-5.4 [facility] Serum or plasma calcium tai urement (mass/volume)Ordered By: Ellis Peterson on 01-20-2024 Calcium [Mass/Vol] 9.2 mg/dL 8.5-10.1 [facility] Serum or plasma creatinine m easurement (mass/volume)Ordered By: Ellis Peterson on 01-20-2024 Creatinine [Mass/Vol] 0.93 mg/dL 0.55-1.02 [facility] Serum or plasma urea nitroge n measurement (mass/volume)Ordered By: Ellis Peterson on 01-20-2024 Urea nitrogen [Mass/Vol] 13 mg/dL 7-18 [facility] Thin prep Papanicolaou smear with manual screeningOrdered By: Ellis Peterson on 01-20-2024 Thin prep Papanicolaou smear with manual screening 5 5-15 [facility] Clostridioides difficile nuc leic acid assay by PCROrdered By: Lizet Linares on 01-19-2024 C. difficile DNA ZHANE+probe Ql (Unsp spec) [facility] Absolute lymphocyte countOrd ered By: Lizet Linares on 01-17-2024 Lymphocytes Auto (Unsp spec) [#/Vol] 2.59 10*3/uL 0.83-4.51 [facility] Automated lymphocyte count a s percentage of total leukocytesOrdered By: Lizet Linares on 01-17-2024 Lymphocytes/100 WBC Auto (Unsp spec) 36.9 % 19-41 [facility] Bacteria identified Cx Nom ( U)Ordered By: Lizet Linares on 01-17-2024 Culture, urine Serratia fonticola [facility] Basophil percentageOrdered B y: Lizet Linares on 01-17-2024 Basophil percentage 10.2 g/dL 12.0-15.0 [facility] Basophil percentage 199 mg/dL 74-106 [facility] Basophil percentage 6.0 g/dL 6.4-8.2 [facility] Basophil percentage 0.20 mg/dL 0.20-1.00 [facility] Basophil percentage 136 mmol/L 136-145 [facility] Basophil percentage 3.8 mmol/L 3.5-5.1 [facility] Basophil percentage 103 mmol/L 98-107 [facility] Basophils (Bld) [#/Vol] 7.0 10*3/uL 4.4-11.0 [facility] Basophils (Bld) [#/Vol] 3.9 10*3/uL 2.0-7.7 [facility] Basophils/100 WBC (Bld) 55.5 % 47-70 [facility] Basophils/100 WBC (Bld) 5.1 % 0-10 [facility] Basophils/100 WBC (Bld) 1.4 % 0-5 [facility] Basophils/100 WBC (Bld) 0.7 % 0-1 [facility] Basophil percentage 0 SEEN /hpf 0-5 [facility] Bilirubin Test strip Ql (U)O rdered By: Lizet Linares on 01-17-2024 Bilirubin Ql (U) Negative Negative [facility] Determination of erythrocyte mean corpuscular volume (MCV)Ordered By: Lizet Linares on 01-17-2024 MCV (RBC) [Entitic vol] 91.3 fL 81-99 [facility] Erythrocyte distribution wid th ratioOrdered By: Lizet Linares on 01-17-2024 Erythrocyte distribution width (RBC) [Ratio] 13.6 % 11.6-14.6 [facility] Erythrocyte distribution wid th standard deviationOrdered By: Lizet Linares on 01-17-2024 Erythrocyte distribution width (RBC) [Entitic vol] 45.4 fL 35.1-43.9 [facility] Hematocrit Auto (Bld) [Volum e fraction]Ordered By: Lizet Linares on 01-17-2024 Hematocrit (Bld) [Volume fraction] 32.4 % 37-47 [facility] Immature granulocytes/100 WB C Auto (Bld)Ordered By: Lizet Linares on 01-17-2024 Immature granulocytes/100 WBC (Bld) 0.400 % 0.0-0.9 [facility] Ketones Test strip Ql (U)Ord ered By: Lizet Linares on 01-17-2024 Ketones Ql (U) Negative Negative [facility] Mucus LM Ql (Urine sed)Order ed By: Lizet Linares on 01-17-2024 Mucus Ql (Urine sed) 0 SEEN /hpf [facility] Nitrite Test strip Ql (U)Ord ered By: Lizet Linares on 01-17-2024 Nitrite Ql (U) Negative Negative [facility] No Panel InformationOrdered By: Lizet Linares on 01-17-2024 28.7 pg 27.0-32.0 [facility] 31.5 g/dL 32-36 [facility] 339 K/mm3 150-450 [facility] 9.2 fl 6.2-12.0 [facility] 0 % 0-5 [facility] 59 mL/min >60 [facility] 71 mL/min >60 [facility] 15.7 RATIO 10-20 [facility] 3.3 g/dL 2.2-4.2 [facility] 0.8 RATIO 0.9-2.4 [facility] 49 U/L 45-117 [facility] 30 U/L 13-56 [facility] 27.0 mmol/L 21.0-32.0 [facility] 0 SEEN /hpf 0-5 [facility] Protein Test strip Ql (U)Ord ered By: Lizet Linares on 01-17-2024 Protein Ql (U) Negative Negative [facility] RBC Auto (Bld) [#/Vol]Ordere d By: Lizet Linares on 01-17-2024 RBC (Bld) [#/Vol] 3.55 10*6/uL 4.2-5.4 [facility] Serum or plasma calcium tai urement (mass/volume)Ordered By: Lizet Linares on 01-17-2024 Calcium [Mass/Vol] 8.0 mg/dL 8.5-10.1 [facility] Serum or plasma creatinine m easurement (mass/volume)Ordered By: Lizet Linares on 01-17-2024 Creatinine [Mass/Vol] 1.02 mg/dL 0.55-1.02 [facility] Serum or plasma urea nitroge n measurement (mass/volume)Ordered By: Lizet Linares on 01-17-2024 Urea nitrogen [Mass/Vol] 16 mg/dL 7-18 [facility] Squamous epithelial cells de tection in urine sediment by light microscopyOrdered By: Lizet Linares on 01-17-2024 Epithelial cells.squamous LM Ql (Urine sed) 0 SEEN /hpf 5-10 [facility] Thin prep Papanicolaou smear with manual screeningOrdered By: Lizet Linares on 01-17-2024 Thin prep Papanicolaou smear with manual screening 2.7 g/dL 3.2-5.0 [facility] Thin prep Papanicolaou smear with manual screening 19 U/L 15-37 [facility] Thin prep Papanicolaou smear with manual screening 6 5-15 [facility] Urine blood detectionOrdered By: Lizet Linares on 01-17-2024 RBC Ql (U) Negative Negative [facility] Urine clarityOrdered By: Bart Linares on 01-17-2024 Clarity (U) Clear Clear [facility] Urine color determinationOrd ered By: Lizet Linares on 01-17-2024 Color (U) Yellow Yellow [facility] Urine glucose detectionOrder ed By: Lizet Linares on 01-17-2024 Glucose Ql (U) 100 mg/dl Normal [facility] Urine leukocyte esterase det ection by dipstickOrdered By: Lizet Linares on 01-17-2024 Leukocyte esterase Test strip Ql (U) Negative Negative [facility] Urine pHOrdered By: Frank Linares on 01-17-2024 pH (U) 6.0 [pH] 5.0 - 8.0 [facility] Urine sediment bacteria coun t by microscopy (number/high power field)Ordered By: Lizet Linares on 01-17-2024 Bacteria LM.HPF (Urine sed) [#/Area] 0 /[HPF] None Seen [facility] Urine specific gravity measu rementOrdered By: Hollyjanellnatasha Linares on 01-17-2024 Specific gravity (U) [Rel density] 1.015 1.002-1.03 0 [facility] Urine urobilinogen measureme ntOrdered By: Lizet Linares on 01-17-2024 Urobilinogen Ql (U) Normal mg/dl Normal [facility] Absolute lymphocyte countOrd ered By: Lizet Linares on 01-14-2024 Lymphocytes Auto (Unsp spec) [#/Vol] 2.49 10*3/uL 0.83-4.51 [facility] Automated lymphocyte count a s percentage of total leukocytesOrdered By: Lizet Linares on 01-14-2024 Lymphocytes/100 WBC Auto (Unsp spec) 32.0 % 19-41 [facility] Basophil percentageOrdered B y: Lizet Linares on 01-14-2024 Basophil percentage 10.1 g/dL 12.0-15.0 [facility] Basophil percentage 268 mg/dL 74-106 [facility] Basophil percentage 136 mmol/L 136-145 [facility] Basophil percentage 4.3 mmol/L 3.5-5.1 [facility] Basophil percentage 104 mmol/L 98-107 [facility] Basophils (Bld) [#/Vol] 7.8 10*3/uL 4.4-11.0 [facility] Basophils (Bld) [#/Vol] 4.8 10*3/uL 2.0-7.7 [facility] Basophils/100 WBC (Bld) 61.1 % 47-70 [facility] Basophils/100 WBC (Bld) 5.1 % 0-10 [facility] Basophils/100 WBC (Bld) 1.0 % 0-5 [facility] Basophils/100 WBC (Bld) 0.4 % 0-1 [facility] Determination of erythrocyte mean corpuscular volume (MCV)Ordered By: Lizet Linares on 01-14-2024 MCV (RBC) [Entitic vol] 90.9 fL 81-99 [facility] Erythrocyte distribution wid th ratioOrdered By: Lizet Linares on 01-14-2024 Erythrocyte distribution width (RBC) [Ratio] 13.6 % 11.6-14.6 [facility] Erythrocyte distribution wid th standard deviationOrdered By: Lizet Linares on 01-14-2024 Erythrocyte distribution width (RBC) [Entitic vol] 45.1 fL 35.1-43.9 [facility] Hematocrit Auto (Bld) [Volum e fraction]Ordered By: Lizet Linares on 01-14-2024 Hematocrit (Bld) [Volume fraction] 31.8 % 37-47 [facility] Immature granulocytes/100 WB C Auto (Bld)Ordered By: Lizet Linares on 01-14-2024 Immature granulocytes/100 WBC (Bld) 0.400 % 0.0-0.9 [facility] No Panel InformationOrdered By: Hollybarranquitasnatasha Linares on 01-14-2024 28.9 pg 27.0-32.0 [facility] 31.8 g/dL 32-36 [facility] 355 K/mm3 150-450 [facility] 9.2 fl 6.2-12.0 [facility] 0 % 0-5 [facility] 55 mL/min >60 [facility] 66 mL/min >60 [facility] 14.8 RATIO 10-20 [facility] 27.0 mmol/L 21.0-32.0 [facility] RBC Auto (Bld) [#/Vol]Ordere d By: Lizet Linares on 01-14-2024 RBC (Bld) [#/Vol] 3.50 10*6/uL 4.2-5.4 [facility] Serum or plasma calcium tai urement (mass/volume)Ordered By: Lizet Linares on 01-14-2024 Calcium [Mass/Vol] 8.5 mg/dL 8.5-10.1 [facility] Serum or plasma creatinine m easurement (mass/volume)Ordered By: Lizet Linares on 01-14-2024 Creatinine [Mass/Vol] 1.08 mg/dL 0.55-1.02 [facility] Serum or plasma urea nitroge n measurement (mass/volume)Ordered By: Lizet Linares on 01-14-2024 Urea nitrogen [Mass/Vol] 16 mg/dL 7-18 [facility] Thin prep Papanicolaou smear with manual screeningOrdered By: Lizet Linares on 01-14-2024 Thin prep Papanicolaou smear with manual screening 5 5-15 [facility] Absolute lymphocyte countOrd ered By: Lizet Linares on 01-12-2024 Lymphocytes Auto (Unsp spec) [#/Vol] 2.91 10*3/uL 0.83-4.51 [facility] Automated lymphocyte count a s percentage of total leukocytesOrdered By: Lizet Linares on 01-12-2024 Lymphocytes/100 WBC Auto (Unsp spec) 31.8 % 19-41 [facility] Basophil percentageOrdered B y: Lizet Linares on 01-12-2024 Basophil percentage 11.1 g/dL 12.0-15.0 [facility] Basophil percentage 215 mg/dL 74-106 [facility] Basophil percentage 136 mmol/L 136-145 [facility] Basophil percentage 4.2 mmol/L 3.5-5.1 [facility] Basophil percentage 103 mmol/L 98-107 [facility] Basophils (Bld) [#/Vol] 9.2 10*3/uL 4.4-11.0 [facility] Basophils (Bld) [#/Vol] 5.7 10*3/uL 2.0-7.7 [facility] Basophils/100 WBC (Bld) 61.9 % 47-70 [facility] Basophils/100 WBC (Bld) 4.6 % 0-10 [facility] Basophils/100 WBC (Bld) 0.8 % 0-5 [facility] Basophils/100 WBC (Bld) 0.4 % 0-1 [facility] Determination of erythrocyte mean corpuscular volume (MCV)Ordered By: Lizet Linares on 01-12-2024 MCV (RBC) [Entitic vol] 90.4 fL 81-99 [facility] Erythrocyte distribution wid th ratioOrdered By: Lizet Linares on 01-12-2024 Erythrocyte distribution width (RBC) [Ratio] 13.5 % 11.6-14.6 [facility] Erythrocyte distribution wid th standard deviationOrdered By: Lizet Linares on 01-12-2024 Erythrocyte distribution width (RBC) [Entitic vol] 44.3 fL 35.1-43.9 [facility] Hematocrit Auto (Bld) [Volum e fraction]Ordered By: Lizet Linares on 01-12-2024 Hematocrit (Bld) [Volume fraction] 34.7 % 37-47 [facility] Immature granulocytes/100 WB C Auto (Bld)Ordered By: Lizet Linares on 01-12-2024 Immature granulocytes/100 WBC (Bld) 0.500 % 0.0-0.9 [facility] No Panel InformationOrdered By: Hollybarranquitasnatasha Linares on 01-12-2024 28.9 pg 27.0-32.0 [facility] 32.0 g/dL 32-36 [facility] 439 K/mm3 150-450 [facility] 9.5 fl 6.2-12.0 [facility] 0 % 0-5 [facility] 59 mL/min >60 [facility] 72 mL/min >60 [facility] 21.8 RATIO 10-20 [facility] 26.0 mmol/L 21.0-32.0 [facility] RBC Auto (Bld) [#/Vol]Ordere d By: Lizet Linares on 01-12-2024 RBC (Bld) [#/Vol] 3.84 10*6/uL 4.2-5.4 [facility] Serum or plasma calcium tai urement (mass/volume)Ordered By: Lizet Linares on 01-12-2024 Calcium [Mass/Vol] 8.7 mg/dL 8.5-10.1 [facility] Serum or plasma creatinine m easurement (mass/volume)Ordered By: Lizet Linares on 01-12-2024 Creatinine [Mass/Vol] 1.01 mg/dL 0.55-1.02 [facility] Serum or plasma urea nitroge n measurement (mass/volume)Ordered By: Lizet Linares on 01-12-2024 Urea nitrogen [Mass/Vol] 22 mg/dL 7-18 [facility] Thin prep Papanicolaou smear with manual screeningOrdered By: Lizet Linares on 01-12-2024 Thin prep Papanicolaou smear with manual screening 7 5-15 [facility] Absolute lymphocyte countOrd ered By: Lizet Linares on 01-07-2024 Lymphocytes Auto (Unsp spec) [#/Vol] 2.39 10*3/uL 0.83-4.51 [facility] Automated lymphocyte count a s percentage of total leukocytesOrdered By: Lizet Linares on 01-07-2024 Lymphocytes/100 WBC Auto (Unsp spec) 33.3 % 19-41 [facility] Basophil percentageOrdered B y: Lizet Linares on 01-07-2024 Basophil percentage 10.5 g/dL 12.0-15.0 [facility] Basophil percentage 350 mg/dL 74-106 [facility] Basophil percentage 137 mmol/L 136-145 [facility] Basophil percentage 3.8 mmol/L 3.5-5.1 [facility] Basophil percentage 103 mmol/L 98-107 [facility] Basophils (Bld) [#/Vol] 7.2 10*3/uL 4.4-11.0 [facility] Basophils (Bld) [#/Vol] 4.3 10*3/uL 2.0-7.7 [facility] Basophils/100 WBC (Bld) 59.4 % 47-70 [facility] Basophils/100 WBC (Bld) 5.6 % 0-10 [facility] Basophils/100 WBC (Bld) 0.8 % 0-5 [facility] Basophils/100 WBC (Bld) 0.3 % 0-1 [facility] Determination of erythrocyte mean corpuscular volume (MCV)Ordered By: Lizet Linares on 01-07-2024 MCV (RBC) [Entitic vol] 90.6 fL 81-99 [facility] Erythrocyte distribution wid th ratioOrdered By: Lizet Linares on 01-07-2024 Erythrocyte distribution width (RBC) [Ratio] 13.6 % 11.6-14.6 [facility] Erythrocyte distribution wid th standard deviationOrdered By: Lizet Linares on 01-07-2024 Erythrocyte distribution width (RBC) [Entitic vol] 44.8 fL 35.1-43.9 [facility] Hematocrit Auto (Bld) [Volum e fraction]Ordered By: Lizet Linares on 01-07-2024 Hematocrit (Bld) [Volume fraction] 31.8 % 37-47 [facility] Immature granulocytes/100 WB C Auto (Bld)Ordered By: Lizet Linares on 01-07-2024 Immature granulocytes/100 WBC (Bld) 0.600 % 0.0-0.9 [facility] No Panel InformationOrdered By: Lizet Linares on 01-07-2024 29.9 pg 27.0-32.0 [facility] 33.0 g/dL 32-36 [facility] 310 K/mm3 150-450 [facility] 9.3 fl 6.2-12.0 [facility] 0 % 0-5 [facility] 59 mL/min >60 [facility] 71 mL/min >60 [facility] 22.5 RATIO 10-20 [facility] 27.0 mmol/L 21.0-32.0 [facility] RBC Auto (Bld) [#/Vol]Ordere d By: Lizet Linares on 01-07-2024 RBC (Bld) [#/Vol] 3.51 10*6/uL 4.2-5.4 [facility] Serum or plasma calcium tai urement (mass/volume)Ordered By: Lizet Linares on 01-07-2024 Calcium [Mass/Vol] 8.3 mg/dL 8.5-10.1 [facility] Serum or plasma creatinine m easurement (mass/volume)Ordered By: Lizet Linares on 01-07-2024 Creatinine [Mass/Vol] 1.02 mg/dL 0.55-1.02 [facility] Serum or plasma urea nitroge n measurement (mass/volume)Ordered By: Lizet Linares on 01-07-2024 Urea nitrogen [Mass/Vol] 23 mg/dL 7-18 [facility] Thin prep Papanicolaou smear with manual screeningOrdered By: Lizet Linares on 01-07-2024 Thin prep Papanicolaou smear with manual screening 7 5-15 [facility] Basophil percentageOrdered B y: Ana Rivera on 01-05-2024 Basophil percentage 10.6 g/dL 12.0-15.0 [facility] Basophil percentage 237 mg/dL 74-106 [facility] Basophil percentage 136 mmol/L 136-145 [facility] Basophil percentage 3.9 mmol/L 3.5-5.1 [facility] Basophil percentage 101 mmol/L 98-107 [facility] Basophils (Bld) [#/Vol] 10.0 10*3/uL 4.4-11.0 [facility] COVID-19 virus antigen assay Ordered By: Ana Rivera on 01-05-2024 SARS-CoV-2 (COVID-19) Ag IA.rapid Ql (Resp) [facility] Determination of erythrocyte mean corpuscular volume (MCV)Ordered By: Ana Rivera on 01-05-2024 MCV (RBC) [Entitic vol] 91.6 fL 81-99 [facility] Erythrocyte distribution wid th ratioOrdered By: Ana Rivera on 01-05-2024 Erythrocyte distribution width (RBC) [Ratio] 13.4 % 11.6-14.6 [facility] Erythrocyte distribution wid th standard deviationOrdered By: Ana Rivera on 01-05-2024 Erythrocyte distribution width (RBC) [Entitic vol] 45.5 fL 35.1-43.9 [facility] Hematocrit Auto (Bld) [Volum e fraction]Ordered By: Ana Rivera on 01-05-2024 Hematocrit (Bld) [Volume fraction] 32.7 % 37-47 [facility] No Panel InformationOrdered By: Ana Rivera on 01-05-2024 29.7 pg 27.0-32.0 [facility] 32.4 g/dL 32-36 [facility] 297 K/mm3 150-450 [facility] 9.3 fl 6.2-12.0 [facility] 60 mL/min >60 [facility] 73 mL/min >60 [facility] 54.57 ml/min [facility] 33.0 RATIO 10-20 [facility] 28.0 mmol/L 21.0-32.0 [facility] RBC Auto (Bld) [#/Vol]Ordere d By: Ana Rivera on 01-05-2024 RBC (Bld) [#/Vol] 3.57 10*6/uL 4.2-5.4 [facility] Serum or plasma calcium tai urement (mass/volume)Ordered By: Ana Rivera on 01-05-2024 Calcium [Mass/Vol] 8.6 mg/dL 8.5-10.1 [facility] Serum or plasma creatinine m easurement (mass/volume)Ordered By: Ana Rivera on 01-05-2024 Creatinine [Mass/Vol] 1.00 mg/dL 0.55-1.02 [facility] Serum or plasma urea nitroge n measurement (mass/volume)Ordered By: Ana Rivera on 01-05-2024 Urea nitrogen [Mass/Vol] 33 mg/dL 7-18 [facility] Thin prep Papanicolaou smear with manual screeningOrdered By: Ana Rivera on 01-05-2024 Thin prep Papanicolaou smear with manual screening 138 mg/dL 74-106 [facility] Thin prep Papanicolaou smear with manual screening 7 5-15 [facility] Absolute lymphocyte countOrd ered By: Ana Rivera on 01-04-2024 Lymphocytes Auto (Unsp spec) [#/Vol] 2.79 10*3/uL 0.83-4.51 [facility] Automated lymphocyte count a s percentage of total leukocytesOrdered By: Ana Rivera on 01-04-2024 Lymphocytes/100 WBC Auto (Unsp spec) 31.0 % 19-41 [facility] Basophil percentageOrdered B y: Ana Rivera on 01-04-2024 Basophils (Bld) [#/Vol] 5.5 10*3/uL 2.0-7.7 [facility] Basophils/100 WBC (Bld) 60.6 % 47-70 [facility] Basophils/100 WBC (Bld) 5.1 % 0-10 [facility] Basophils/100 WBC (Bld) 1.3 % 0-5 [facility] Basophils/100 WBC (Bld) 0.4 % 0-1 [facility] Immature granulocytes/100 WB C Auto (Bld)Ordered By: Ana Rivera on 01-04-2024 Immature granulocytes/100 WBC (Bld) 1.600 % 0.0-0.9 [facility] No Panel InformationOrdered By: Ana Rivera on 01-04-2024 0 % 0-5 [facility] Basophil percentageOrdered B y: Chavez Alcala on 01-03-2024 Chloride [Moles/Vol] 103 mmol/L 98-107 [facility] Glucose [Mass/Vol] 403 mg/dL 74-106 [facility] Comment on above: Glucose result great er than or equal to 200 mg/dLsuggests DIABETES MELLITUS per A.D.A. criteria. Hemoglobin (Bld) [Mass/Vol] 10.3 g/dL 12.0-15.0 [facility] Potassium [Moles/Vol] 4.5 mmol/L 3.5-5.1 [facility] Sodium [Moles/Vol] 137 mmol/L 136-145 [facility] WBC (Bld) [#/Vol] 9.3 10*3/uL 4.4-11.0 [facility] Determination of erythrocyte mean corpuscular volume (MCV)Ordered By: Chavez Alcala on 01-03-2024 MCV (RBC) [Entitic vol] 90.9 fL 81-99 [facility] Erythrocyte distribution wid th ratioOrdered By: Chavez Alcala on 01-03-2024 Erythrocyte distribution width (RBC) [Ratio] 13.6 % 11.6-14.6 [facility] Erythrocyte distribution wid th standard deviationOrdered By: Chavez Alcala on 01-03-2024 Erythrocyte distribution width (RBC) [Entitic vol] 45.0 fL 35.1-43.9 [facility] Hematocrit Auto (Bld) [Volum e fraction]Ordered By: Chavez Alcala on 01-03-2024 Hematocrit (Bld) [Volume fraction] 32.1 % 37-47 [facility] Laboratory - Chemistry and C hemistry - challengeOrdered By: Chavez Alcala on 01-03-2024 CO2 [Moles/Vol] 26.0 mmol/L 21.0-32.0 [facility] Urea nitrogen/Creatinine [Mass ratio] 32.7 mg/mg 10-20 [facility] - Hematology and Cell countsOrdered By: Chavez Alcala on 01-03-2024 MCH (RBC) [Entitic mass] 29.2 pg 27.0-32.0 [facility] MCHC (RBC) [Mass/Vol] 32.1 g/dL 32-36 [facility] Platelet mean volume (Bld) [Entitic vol] 9.4 fL 6.2-12.0 [facility] Platelets (Bld) [#/Vol] 291 10*3/uL 150-450 [facility] No Panel InformationOrdered By: Chavez Alcala on 01-03-2024 Estimated Creatinine Clearance Calc 48.23 ml/min [facility] Estimated GFR (MDRD) Amer 63 mL/min >60 [facility] Comment on above: GFR Calc Estimated GFR (MDRD) Non-Af Amer 52 mL/min >60 [facility] Comment on above: Non- GFR Calc RBC Auto (Bld) [#/Vol]Ordere d By: Chavez Alcala on 01-03-2024 RBC (Bld) [#/Vol] 3.53 10*6/uL 4.2-5.4 [facility] Serum or plasma calcium tai urement (mass/volume)Ordered By: Chavez Alcala on 01-03-2024 Calcium [Mass/Vol] 8.5 mg/dL 8.5-10.1 [facility] Serum or plasma creatinine m easurement (mass/volume)Ordered By: Chavez Alcala on 01-03-2024 Creatinine [Mass/Vol] 1.13 mg/dL 0.55-1.02 [facility] Comment on above: The validity of the calculated GFR & GFRAA in patients over 70 years has not been determined. Clinical correlation is essential. Serum or plasma urea nitroge n measurement (mass/volume)Ordered By: Chavez Alcala on 01-03-2024 Urea nitrogen [Mass/Vol] 37 mg/dL 7-18 [facility] Thin prep Papanicolaou smear with manual screeningOrdered By: Ana Rivera on 01-03-2024 Thin prep Papanicolaou smear with manual screening 333 mg/dL 74-106 [facility] Comment on above: MANAGEMENT OF PATIEN T CARE PER NURSING PROTOCOL Thin prep Papanicolaou smear with manual screeningOrdered By: Chavez Alcala on 01-03-2024 Thin prep Papanicolaou smear with manual screening 8 5-15 [facility] Absolute lymphocyte countOrd ered By: Hansa Cast on 01-02-2024 Lymphocytes Auto (Unsp spec) [#/Vol] 2.24 10*3/uL 0.83-4.51 [facility] Automated lymphocyte count a s percentage of total leukocytesOrdered By: Hansa Serene on 01-02-2024 Lymphocytes/100 WBC Auto (Unsp spec) 31.4 % 19-41 [facility] Basophil percentageOrdered B y: Hansa Serene on 01-02-2024 Basophil percentage 6.9 g/dL 6.4-8.2 [facility] Basophil percentage 0.30 mg/dL 0.20-1.00 [facility] Basophils/100 WBC (Bld) 0.4 % 0-1 [facility] Bilirubin [Mass/Vol] 0.30 mg/dL 0.20-1.00 [facility] Comment on above: For patients on eltr ombopag therapy, use of Dimension [place] TBIL is not recommended. Eosinophils/100 WBC (Bld) 1.1 % 0-5 [facility] Monocytes/100 WBC (Bld) 5.2 % 0-10 [facility] Neutrophils (Bld) [#/Vol] 4.3 10*3/uL 2.0-7.7 [facility] Neutrophils/100 WBC (Bld) 60.2 % 47-70 [facility] Protein [Mass/Vol] 6.9 g/dL 6.4-8.2 [facility] Immature granulocytes/100 WB C Auto (Bld)Ordered By: Hansa Cast on 01-02-2024 Immature granulocytes/100 WBC (Bld) 1.700 % 0.0-0.9 [facility] Comment on above: IG% - Immature Granu locytes (promyelocytes, myelocytes and metamyelocytes) > 1% indicates that a LEFT SHIFT is Present. Laboratory - Chemistry and C hemistry - challengeOrdered By: Hansa Cast on 01-02-2024 Albumin/Globulin [Mass ratio] 0.8 {ratio} 0.9-2.4 [facility] ALP [Catalytic activity/Vol] 56 U/L [facility] ALT [Catalytic activity/Vol] 27 U/L [facility] Globulin (S) [Mass/Vol] 3.9 g/dL 2.2-4.2 [facility] Laboratory - Hematology and Cell countsOrdered By: Hansa Cast on 01-02-2024 Nucleated RBC/100 WBC (Bld) [Ratio] 0 % 0-5 [facility] No Panel InformationOrdered By: [facility] Serene on 01-02-2024 3.9 g/dL 2.2-4.2 [facility] 0.8 RATIO 0.9-2.4 [facility] 56 U/L [facility] 27 U/L [facility] Serum or plasma thyroid stim ulating hormone (TSH) measurement (units/volume)Ordered By: Hansa Serene on 01-02-2024 TSH Qn 0.36 uIU/mL 0.358-3.74 [facility] Thin prep Papanicolaou smear with manual screeningOrdered By: [facility] on 01-02-2024 Thin prep Papanicolaou smear with manual screening 3.0 g/dL 3.2-5.0 [facility] Thin prep Papanicolaou smear with manual screening 34 U/L 15-37 [facility] Thin prep Papanicolaou smear with manual screening 1.82 ng/dL 0.76-1.46 [facility] Absolute lymphocyte countOrd ered By: Raisa Mc on 01-01-2024 Lymphocytes Auto (Unsp spec) [#/Vol] 2.66 10*3/uL 0.83-4.51 [facility] Automated lymphocyte count a s percentage of total leukocytesOrdered By: Raisa Mc on 01-01-2024 Lymphocytes/100 WBC Auto (Unsp spec) 26.5 % 19-41 [facility] Basophil percentageOrdered B y: Raisa Mc on 01-01-2024 Basophils/100 WBC (Bld) 0.4 % 0-1 [facility] Chloride [Moles/Vol] 102 mmol/L 98-107 [facility] Eosinophils/100 WBC (Bld) 0.8 % 0-5 [facility] Glucose [Mass/Vol] 405 mg/dL 74-106 [facility] Comment on above: Glucose result great er than or equal to 200 mg/dLsuggests DIABETES MELLITUS per A.D.A. criteria. Hemoglobin (Bld) [Mass/Vol] 11.2 g/dL 12.0-15.0 [facility] Monocytes/100 WBC (Bld) 4.7 % 0-10 [facility] Neutrophils (Bld) [#/Vol] 6.7 10*3/uL 2.0-7.7 [facility] Neutrophils/100 WBC (Bld) 66.7 % 47-70 [facility] Potassium [Moles/Vol] 4.7 mmol/L 3.5-5.1 [facility] Sodium [Moles/Vol] 134 mmol/L 136-145 [facility] WBC (Bld) [#/Vol] 10.0 10*3/uL 4.4-11.0 [facility] Determination of erythrocyte mean corpuscular volume (MCV)Ordered By: Raisa Mc on 01-01-2024 MCV (RBC) [Entitic vol] 89.5 fL 81-99 [facility] Erythrocyte distribution wid th ratioOrdered By: Raisa Mc on 01-01-2024 Erythrocyte distribution width (RBC) [Ratio] 13.3 % 11.6-14.6 [facility] Erythrocyte distribution wid th standard deviationOrdered By: Raisa Mc on 01-01-2024 Erythrocyte distribution width (RBC) [Entitic vol] 43.3 fL 35.1-43.9 [facility] Hematocrit Auto (Bld) [Volum e fraction]Ordered By: Raisa Mc on 01-01-2024 Hematocrit (Bld) [Volume fraction] 35.0 % 37-47 [facility] Immature granulocytes/100 WB C Auto (Bld)Ordered By: Raisa Mc on 01-01-2024 Immature granulocytes/100 WBC (Bld) 0.900 % 0.0-0.9 [facility] Comment on above: IG% - Immature Granu locytes (promyelocytes, myelocytes and metamyelocytes) > 1% indicates that a LEFT SHIFT is Present. Laboratory - Chemistry and C hemistry - challengeOrdered By: Raisa Mc on 01-01-2024 CO2 [Moles/Vol] 27.0 mmol/L 21.0-32.0 [facility] Urea nitrogen/Creatinine [Mass ratio] 20.3 mg/mg 10-20 [facility] Laboratory - Hematology and Cell countsOrdered By: Raisa Mc on 01-01-2024 MCH (RBC) [Entitic mass] 28.6 pg 27.0-32.0 [facility] MCHC (RBC) [Mass/Vol] 32.0 g/dL 32-36 [facility] Nucleated RBC/100 WBC (Bld) [Ratio] 0 % 0-5 [facility] Platelet mean volume (Bld) [Entitic vol] 9.4 fL 6.2-12.0 [facility] Platelets (Bld) [#/Vol] 309 10*3/uL 150-450 [facility] No Panel InformationOrdered By: Raisa Mc on 01-01-2024 Troponin I High Sensitivity 17 pg/mL 3.0-54.0 [facility] Comment on above: Please Note: New Carolann t Units and Gender Specific Reference Ranges. For more information see Policy Stat Procedure [place] High Sensitivity Troponin (TNIH) and attachments. 17 pg/mL 3.0-54.0 [facility] D-Dimer Quantitative (PE/DVT) 1.83 FEU/ug/m 0.27-0.49 [facility] Comment on above: D-Dimer ELEVATED (>0 .49): Additional studies and clinicalassessments are indicated to conclude diagnosis of:Deep Vein Thrombosis (DVT) or Pulmonary Embolism (PE)CRITICAL VALUE VERIFIED. CALLED TO [place] [id number] Maurice Cast.RESULTS READ BACK BY SAME . Estimated Creatinine Clearance Calc 39.76 ml/min [facility] Estimated GFR (MDRD) Amer 50 mL/min >60 [facility] Comment on above: GFR Calc Estimated GFR (MDRD) Non-Af Amer 41 mL/min >60 [facility] Comment on above: Non- GFR Calc 1.83 FEU/ug/m 0.27-0.49 [facility] RBC Auto (Bld) [#/Vol]Ordere d By: Raisa Mc on 01-01-2024 RBC (Bld) [#/Vol] 3.91 10*6/uL 4.2-5.4 [facility] Serum or plasma calcium tai urement (mass/volume)Ordered By: Raisa Mc on 01-01-2024 Calcium [Mass/Vol] 9.1 mg/dL 8.5-10.1 [facility] Serum or plasma creatinine m easurement (mass/volume)Ordered By: Raisa Mc on 01-01-2024 Creatinine [Mass/Vol] 1.38 mg/dL 0.55-1.02 [facility] Comment on above: The validity of the calculated GFR & GFRAA in patients over 70 years has not been determined. Clinical correlation is essential. Serum or plasma urea nitroge n measurement (mass/volume)Ordered By: Raisa Mc on 01-01-2024 Urea nitrogen [Mass/Vol] 28 mg/dL 7-18 [facility] Thin prep Papanicolaou smear with manual screeningOrdered By: Raisa Mc on 01-01-2024 Thin prep Papanicolaou smear with manual screening 5 5-15 [facility] Absolute lymphocyte countOrd ered By: Lizet Linares on 12-31-2023 Lymphocytes Auto (Unsp spec) [#/Vol] 1.71 10*3/uL 0.83-4.51 [facility] Automated lymphocyte count a s percentage of total leukocytesOrdered By: Lizet Linares on 12-31-2023 Lymphocytes/100 WBC Auto (Unsp spec) 21.9 % 19-41 [facility] Basophil percentageOrdered B y: Lizet Linares on 12-31-2023 Basophil percentage 11.2 g/dL 12.0-15.0 [facility] Basophil percentage 480 mg/dL 74-106 [facility] Basophil percentage 134 mmol/L 136-145 [facility] Basophil percentage 4.9 mmol/L 3.5-5.1 [facility] Basophil percentage 101 mmol/L 98-107 [facility] Basophils (Bld) [#/Vol] 7.8 10*3/uL 4.4-11.0 [facility] Basophils (Bld) [#/Vol] 5.7 10*3/uL 2.0-7.7 [facility] Basophils/100 WBC (Bld) 0.4 % 0-1 [facility] Basophils/100 WBC (Bld) 73.1 % 47-70 [facility] Basophils/100 WBC (Bld) 3.7 % 0-10 [facility] Basophils/100 WBC (Bld) 0.0 % 0-5 [facility] Chloride [Moles/Vol] 101 mmol/L 98-107 [facility] Eosinophils/100 WBC (Bld) 0.0 % 0-5 [facility] Glucose [Mass/Vol] 480 mg/dL 74-106 [facility] Comment on above: Critical Result(s) C alled at: 08:54:01 12/31/2023 by: Dalila Apodaca RN ([facility]). Results read back by same.Glucose result greater than or equal to 200 mg/dLsuggests DIABETES MELLITUS per A.D.A. criteria. Hemoglobin (Bld) [Mass/Vol] 11.2 g/dL 12.0-15.0 [facility] Monocytes/100 WBC (Bld) 3.7 % 0-10 [facility] Neutrophils (Bld) [#/Vol] 5.7 10*3/uL 2.0-7.7 [facility] Neutrophils/100 WBC (Bld) 73.1 % 47-70 [facility] Potassium [Moles/Vol] 4.9 mmol/L 3.5-5.1 [facility] Sodium [Moles/Vol] 134 mmol/L 136-145 [facility] WBC (Bld) [#/Vol] 7.8 10*3/uL 4.4-11.0 [facility] Determination of erythrocyte mean corpuscular volume (MCV)Ordered By: Lizet Linares on 12-31-2023 MCV (RBC) [Entitic vol] 90.5 fL 81-99 [facility] Erythrocyte distribution wid th ratioOrdered By: Lizet Linares on 12-31-2023 Erythrocyte distribution width (RBC) [Ratio] 13.1 % 11.6-14.6 [facility] Erythrocyte distribution wid th standard deviationOrdered By: marcelle Linares on 12-31-2023 Erythrocyte distribution width (RBC) [Entitic vol] 43.3 fL 35.1-43.9 [facility] Hematocrit Auto (Bld) [Volum e fraction]Ordered By: marcelle Linares on 12-31-2023 Hematocrit (Bld) [Volume fraction] 34.4 % 37-47 [facility] Immature granulocytes/100 WB C Auto (Bld)Or[facility]: [facility] on 12-31-2023 Immature granulocytes/100 WBC (Bld) 0.900 % 0.0-0.9 [facility] Comment on above: IG% - Immature Granu locytes (promyelocytes, myelocytes and metamyelocytes) > 1% indicates that a LEFT SHIFT is Present. Laboratory - Chemistry and C hemistry - challengeOrdered By: Hollybarranquitasnatasha Linares on 12-31-2023 CO2 [Moles/Vol] 24.0 mmol/L 21.0-32.0 [facility] Urea nitrogen/Creatinine [Mass ratio] 19.6 mg/mg 10-20 [facility] Laboratory - Hematology and Cell countsOrdered By: Lizet Linares on 12-31-2023 MCH (RBC) [Entitic mass] 29.5 pg 27.0-32.0 [facility] MCHC (RBC) [Mass/Vol] 32.6 g/dL 32-36 [facility] Nucleated RBC/100 WBC (Bld) [Ratio] 0 % 0-5 [facility] Platelet mean volume (Bld) [Entitic vol] 9.9 fL 6.2-12.0 [facility] Platelets (Bld) [#/Vol] 257 10*3/uL 150-450 [facility] No Panel InformationOrdered By: Lizet Linares on 12-31-2023 Estimated GFR (MDRD) Amer 50 mL/min >60 [facility] Comment on above: GFR Calc Estimated GFR (MDRD) Non-Af Amer 41 mL/min >60 [facility] Comment on above: Non- GFR Calc 29.5 pg 27.0-32.0 [facility] 32.6 g/dL 32-36 [facility] 257 K/mm3 150-450 [facility] 9.9 fl 6.2-12.0 [facility] 0 % 0-5 [facility] 41 mL/min >60 [facility] 50 mL/min >60 [facility] 19.6 RATIO 10-20 [facility] 24.0 mmol/L 21.0-32.0 [facility] RBC Auto (Bld) [#/Vol]Ordere d By: Lizet Linares on 12-31-2023 RBC (Bld) [#/Vol] 3.80 10*6/uL 4.2-5.4 [facility] Serum or plasma calcium tai urement (mass/volume)Ordered By: Lizet Linares on 12-31-2023 Calcium [Mass/Vol] 9.3 mg/dL 8.5-10.1 [facility] Serum or plasma creatinine m easurement (mass/volume)Ordered By: Lizet Linares on 12-31-2023 Creatinine [Mass/Vol] 1.38 mg/dL 0.55-1.02 [facility] Comment on above: The validity of the calculated GFR & GFRAA in patients over 70 years has not been determined. Clinical correlation is essential. Serum or plasma urea nitroge n measurement (mass/volume)Ordered By: Lizet Linares on 12-31-2023 Urea nitrogen [Mass/Vol] 27 mg/dL 7-18 [facility] Thin prep Papanicolaou smear with manual screeningOrdered By: Lizet Linares on 12-31-2023 Thin prep Papanicolaou smear with manual screening 9 5-15 [facility] Bacteria identified Cx Nom ( U)Ordered By: Lizet Linares on 12-29-2023 Culture, urine Proteus mirabilis [facility] Bilirubin Test strip Ql (U)O rdered By: Lizet Linares on 12-29-2023 Bilirubin Ql (U) Negative Negative [facility] Culture, urineOrdered By: Junie Linares on 12-29-2023 Bacteria identified Cx Nom (U) Proteus mirabilis [facility] Ketones Test strip Ql (U)Ord ered By: Lizet Linares on 12-29-2023 Ketones Ql (U) Negative Negative [facility] Nitrite Test strip Ql (U)Ord ered By: Lizet Linares on 12-29-2023 Nitrite Ql (U) Negative Negative [facility] Protein Test strip Ql (U)Ord ered By: Lizet Linares on 12-29-2023 Protein Ql (U) 30 mg/dl Negative [facility] Urine blood detectionOrdered By: Lizet Linares on 12-29-2023 RBC Ql (U) 250 /ul Negative [facility] Urine clarityOrdered By: Bart Linares on 12-29-2023 Clarity (U) Cloudy Clear [facility] Urine color determinationOrd ered By: Lizet Linares on 12-29-2023 Color (U) Yellow Yellow [facility] Urine glucose detectionOrder ed By: Lizet Linares on 12-29-2023 Glucose Ql (U) 1000 mg/dl Normal [facility] Urine leukocyte esterase det ection by dipstickOrdered By: Lizet Linares on 12-29-2023 Leukocyte esterase Test strip Ql (U) 500 /ul Negative [facility] Urine pHOrdered By: Frank Linares on 12-29-2023 pH (U) 6.5 [pH] 5.0 - 8.0 [facility] Urine specific gravity measu rementOrdered By: Lizet Linares on 12-29-2023 Specific gravity (U) [Rel density] 1.005 1.002-1.03 0 [facility] Urine urobilinogen measureme ntOrdered By: Lizet Linares on 12-29-2023 Urobilinogen Ql (U) Normal mg/dl Normal [facility] Absolute lymphocyte countOrd ered By: Lizet Linares on 12-24-2023 Lymphocytes Auto (Unsp spec) [#/Vol] 2.44 10*3/uL 0.83-4.51 [facility] Automated lymphocyte count a s percentage of total leukocytesOrdered By: Lizet Linares on 12-24-2023 Lymphocytes/100 WBC Auto (Unsp spec) 48.0 % 19-41 [facility] Basophil percentageOrdered B y: Lizet Linares on 12-24-2023 Basophil percentage 11.2 g/dL 12.0-15.0 [facility] Basophil percentage 215 mg/dL 74-106 [facility] Basophil percentage 136 mmol/L 136-145 [facility] Basophil percentage 4.1 mmol/L 3.5-5.1 [facility] Basophil percentage 105 mmol/L 98-107 [facility] Basophils (Bld) [#/Vol] 5.1 10*3/uL 4.4-11.0 [facility] Basophils (Bld) [#/Vol] 2.2 10*3/uL 2.0-7.7 [facility] Basophils/100 WBC (Bld) 0.6 % 0-1 [facility] Basophils/100 WBC (Bld) 43.3 % 47-70 [facility] Basophils/100 WBC (Bld) 6.9 % 0-10 [facility] Basophils/100 WBC (Bld) 1.0 % 0-5 [facility] Chloride [Moles/Vol] 105 mmol/L 98-107 [facility] Eosinophils/100 WBC (Bld) 1.0 % 0-5 [facility] Glucose [Mass/Vol] 215 mg/dL 74-106 [facility] Comment on above: Glucose result great er than or equal to 200 mg/dLsuggests DIABETES MELLITUS per A.D.A. criteria. Hemoglobin (Bld) [Mass/Vol] 11.2 g/dL 12.0-15.0 [facility] Monocytes/100 WBC (Bld) 6.9 % 0-10 [facility] Neutrophils (Bld) [#/Vol] 2.2 10*3/uL 2.0-7.7 [facility] Neutrophils/100 WBC (Bld) 43.3 % 47-70 [facility] Potassium [Moles/Vol] 4.1 mmol/L 3.5-5.1 [facility] Sodium [Moles/Vol] 136 mmol/L 136-145 [facility] WBC (Bld) [#/Vol] 5.1 10*3/uL 4.4-11.0 [facility] Determination of erythrocyte mean corpuscular volume (MCV)Ordered By: Lizet Linares on 12-24-2023 MCV (RBC) [Entitic vol] 91.1 fL 81-99 [facility] Erythrocyte distribution wid th ratioOrdered By: [facility] on 12-24-2023 Erythrocyte distribution width (RBC) [Ratio] 13.7 % 11.6-14.6 [facility] Erythrocyte distribution wid th standard deviationOrdered By: [facility] on 12-24-2023 Erythrocyte distribution width (RBC) [Entitic vol] 46.0 fL 35.1-43.9 [facility] Hematocrit Auto (Bld) [Volum e fraction]Ordered By: Lizet Linares on 12-24-2023 Hematocrit (Bld) [Volume fraction] 33.8 % 37-47 [facility] Immature granulocytes/100 WB C Auto (Bld)Ordered By: [facility] on 12-24-2023 Immature granulocytes/100 WBC (Bld) 0.200 % 0.0-0.9 [facility] Comment on above: IG% - Immature Granu locytes (promyelocytes, myelocytes and metamyelocytes) > 1% indicates that a LEFT SHIFT is Present. Laboratory - Chemistry and C hemistry - challengeOrdered By: Lizet Linares on 12-24-2023 CO2 [Moles/Vol] 26.0 mmol/L 21.0-32.0 [facility] Urea nitrogen/Creatinine [Mass ratio] 20.2 mg/mg 10-20 [facility] Laboratory - Hematology and Cell countsOrdered By: Lizet Linares on 12-24-2023 MCH (RBC) [Entitic mass] 30.2 pg 27.0-32.0 [facility] MCHC (RBC) [Mass/Vol] 33.1 g/dL 32-36 [facility] Nucleated RBC/100 WBC (Bld) [Ratio] 0 % 0-5 [facility] Platelet mean volume (Bld) [Entitic vol] 9.5 fL 6.2-12.0 [facility] Platelets (Bld) [#/Vol] 229 10*3/uL 150-450 [facility] No Panel InformationOrdered By: Lizet Linares on 12-24-2023 Estimated GFR (MDRD) Amer 66 mL/min >60 [facility] Comment on above: GFR Calc Estimated GFR (MDRD) Non-Af Amer 54 mL/min >60 [facility] Comment on above: Non- GFR Calc 30.2 pg 27.0-32.0 [facility] 33.1 g/dL 32-36 [facility] 229 K/mm3 150-450 [facility] 9.5 fl 6.2-12.0 [facility] 0 % 0-5 [facility] 54 mL/min >60 [facility] 66 mL/min >60 [facility] 20.2 RATIO 10-20 [facility] 26.0 mmol/L 21.0-32.0 [facility] RBC Auto (Bld) [#/Vol]Ordere d By: Lizet Linares on 12-24-2023 RBC (Bld) [#/Vol] 3.71 10*6/uL 4.2-5.4 [facility] Serum or plasma calcium tai urement (mass/volume)Ordered By: Lizet Linares on 12-24-2023 Calcium [Mass/Vol] 8.7 mg/dL 8.5-10.1 [facility] Serum or plasma creatinine m easurement (mass/volume)Ordered By: Lizet Linares on 12-24-2023 Creatinine [Mass/Vol] 1.09 mg/dL 0.55-1.02 [facility] Comment on above: The validity of the calculated GFR & GFRAA in patients over 70 years has not been determined. Clinical correlation is essential. Serum or plasma urea nitroge n measurement (mass/volume)Ordered By: Lizet Linares on 12-24-2023 Urea nitrogen [Mass/Vol] 22 mg/dL 7-18 [facility] Thin prep Papanicolaou smear with manual screeningOrdered By: Lizet Linares on 12-24-2023 Thin prep Papanicolaou smear with manual screening 5 5-15 [facility] Absolute lymphocyte countOrd ered By: Lizet Linares on 12-17-2023 Lymphocytes Auto (Unsp spec) [#/Vol] 2.73 10*3/uL 0.83-4.51 [facility] Automated lymphocyte count a s percentage of total leukocytesOrdered By: Lizet Linares on 12-17-2023 Lymphocytes/100 WBC Auto (Unsp spec) 35.0 % 19-41 [facility] Basophil percentageOrdered B y: Lizet Linares on 12-17-2023 Basophil percentage 11.2 g/dL 12.0-15.0 [facility] Basophil percentage 295 mg/dL 74-106 [facility] Basophil percentage 135 mmol/L 136-145 [facility] Basophil percentage 4.1 mmol/L 3.5-5.1 [facility] Basophil percentage 101 mmol/L 98-107 [facility] Basophils (Bld) [#/Vol] 7.8 10*3/uL 4.4-11.0 [facility] Basophils (Bld) [#/Vol] 4.4 10*3/uL 2.0-7.7 [facility] Basophils/100 WBC (Bld) 0.6 % 0-1 [facility] Basophils/100 WBC (Bld) 56.1 % 47-70 [facility] Basophils/100 WBC (Bld) 6.9 % 0-10 [facility] Basophils/100 WBC (Bld) 1.0 % 0-5 [facility] Chloride [Moles/Vol] 101 mmol/L 98-107 [facility] Eosinophils/100 WBC (Bld) 1.0 % 0-5 [facility] Glucose [Mass/Vol] 295 mg/dL 74-106 [facility] Comment on above: Glucose result great er than or equal to 200 mg/dLsuggests DIABETES MELLITUS per A.D.A. criteria. Hemoglobin (Bld) [Mass/Vol] 11.2 g/dL 12.0-15.0 [facility] Monocytes/100 WBC (Bld) 6.9 % 0-10 [facility] Neutrophils (Bld) [#/Vol] 4.4 10*3/uL 2.0-7.7 [facility] Neutrophils/100 WBC (Bld) 56.1 % 47-70 [facility] Potassium [Moles/Vol] 4.1 mmol/L 3.5-5.1 [facility] Sodium [Moles/Vol] 135 mmol/L 136-145 [facility] WBC (Bld) [#/Vol] 7.8 10*3/uL 4.4-11.0 [facility] Determination of erythrocyte mean corpuscular volume (MCV)Ordered By: Lizet Linares on 12-17-2023 MCV (RBC) [Entitic vol] 90.9 fL 81-99 [facility] Erythrocyte distribution wid th ratioOrdered By: Lizet Linares on 12-17-2023 Erythrocyte distribution width (RBC) [Ratio] 14.0 % 11.6-14.6 [facility] Erythrocyte distribution wid th standard deviationOrdered By: Lizet Linares on 12-17-2023 Erythrocyte distribution width (RBC) [Entitic vol] 46.7 fL 35.1-43.9 [facility] Hematocrit Auto (Bld) [Volum e fraction]Ordered By: Lizet Linares on 12-17-2023 Hematocrit (Bld) [Volume fraction] 34.1 % 37-47 [facility] Immature granulocytes/100 WB C Auto (Bld)Ordered By: Lizet Linares on 12-17-2023 Immature granulocytes/100 WBC (Bld) 0.400 % 0.0-0.9 [facility] Comment on above: IG% - Immature Granu locytes (promyelocytes, myelocytes and metamyelocytes) > 1% indicates that a LEFT SHIFT is Present. Laboratory - Chemistry and C hemistry - challengeOrdered By: Lizet Linares on 12-17-2023 CO2 [Moles/Vol] 28.0 mmol/L 21.0-32.0 [facility] Urea nitrogen/Creatinine [Mass ratio] 22.7 mg/mg 10-20 [facility] Laboratory - Hematology and Cell countsOrdered By: Lizet Linares on 12-17-2023 MCH (RBC) [Entitic mass] 29.9 pg 27.0-32.0 [facility] MCHC (RBC) [Mass/Vol] 32.8 g/dL 32-36 [facility] Nucleated RBC/100 WBC (Bld) [Ratio] 0 % 0-5 [facility] Platelet mean volume (Bld) [Entitic vol] 9.5 fL 6.2-12.0 [facility] Platelets (Bld) [#/Vol] 323 10*3/uL 150-450 [facility] No Panel InformationOrdered By: Lizet Linares on 12-17-2023 Estimated GFR (MDRD) Amer 55 mL/min >60 [facility] Comment on above: GFR Calc Estimated GFR (MDRD) Non-Af Amer 45 mL/min >60 [facility] Comment on above: Non- GFR Calc 29.9 pg 27.0-32.0 [facility] 32.8 g/dL 32-36 [facility] 323 K/mm3 150-450 [facility] 9.5 fl 6.2-12.0 [facility] 0 % 0-5 [facility] 45 mL/min >60 [facility] 55 mL/min >60 [facility] 22.7 RATIO 10-20 [facility] 28.0 mmol/L 21.0-32.0 [facility] RBC Auto (Bld) [#/Vol]Ordere d By: Lizet Linares on 12-17-2023 RBC (Bld) [#/Vol] 3.75 10*6/uL 4.2-5.4 [facility] Serum or plasma calcium tai urement (mass/volume)Ordered By: Lizet Linares on 12-17-2023 Calcium [Mass/Vol] 8.9 mg/dL 8.5-10.1 [facility] Serum or plasma creatinine m easurement (mass/volume)Ordered By: Lizet Linares on 12-17-2023 Creatinine [Mass/Vol] 1.28 mg/dL 0.55-1.02 [facility] Comment on above: The validity of the calculated GFR & GFRAA in patients over 70 years has not been determined. Clinical correlation is essential. Serum or plasma urea nitroge n measurement (mass/volume)Ordered By: Lizet Portertal on 12-17-2023 Urea nitrogen [Mass/Vol] 29 mg/dL 7-18 [facility] Thin prep Papanicolaou smear with manual screeningOrdered By: Lizet Linares on 12-17-2023 Thin prep Papanicolaou smear with manual screening 6 5-15 [facility] Absolute lymphocyte countOrd ered By: Lizet Tayjntal on 12-10-2023 Lymphocytes Auto (Unsp spec) [#/Vol] 2.72 10*3/uL 0.83-4.51 [facility] Automated lymphocyte count a s percentage of total leukocytesOrdered By: Asmitanatasha Crossjntal on 12-10-2023 Lymphocytes/100 WBC Auto (Unsp spec) 45.2 % 19-41 [facility] Basophil percentageOrdered B y: Asmitanatasha Crossjntal on 12-10-2023 Basophil percentage 10.1 g/dL 12.0-15.0 [facility] Basophil percentage 352 mg/dL 74-106 [facility] Basophil percentage 135 mmol/L 136-145 [facility] Basophil percentage 4.3 mmol/L 3.5-5.1 [facility] Basophil percentage 103 mmol/L 98-107 [facility] Basophils (Bld) [#/Vol] 6.0 10*3/uL 4.4-11.0 [facility] Basophils (Bld) [#/Vol] 2.8 10*3/uL 2.0-7.7 [facility] Basophils/100 WBC (Bld) 0.8 % 0-1 [facility] Basophils/100 WBC (Bld) 46.4 % 47-70 [facility] Basophils/100 WBC (Bld) 6.3 % 0-10 [facility] Basophils/100 WBC (Bld) 0.5 % 0-5 [facility] Chloride [Moles/Vol] 103 mmol/L 98-107 [facility] Eosinophils/100 WBC (Bld) 0.5 % 0-5 [facility] Glucose [Mass/Vol] 352 mg/dL 74-106 [facility] Comment on above: Glucose result great er than or equal to 200 mg/dLsuggests DIABETES MELLITUS per A.D.A. criteria. Hemoglobin (Bld) [Mass/Vol] 10.1 g/dL 12.0-15.0 [facility] Monocytes/100 WBC (Bld) 6.3 % 0-10 [facility] Neutrophils (Bld) [#/Vol] 2.8 10*3/uL 2.0-7.7 [facility] Neutrophils/100 WBC (Bld) 46.4 % 47-70 [facility] Potassium [Moles/Vol] 4.3 mmol/L 3.5-5.1 [facility] Sodium [Moles/Vol] 135 mmol/L 136-145 [facility] WBC (Bld) [#/Vol] 6.0 10*3/uL 4.4-11.0 [facility] Determination of erythrocyte mean corpuscular volume (MCV)Ordered By: Lizet Linares on 12-10-2023 MCV (RBC) [Entitic vol] 91.0 fL 81-99 [facility] Erythrocyte distribution wid th ratioOrdered By: [facility] on 12-10-2023 Erythrocyte distribution width (RBC) [Ratio] 13.6 % 11.6-14.6 [facility] Erythrocyte distribution wid th standard deviationOrdered By: Hollybarranquitasnatasha Linares on 12-10-2023 Erythrocyte distribution width (RBC) [Entitic vol] 45.5 fL 35.1-43.9 [facility] Hematocrit Auto (Bld) [Volum e fraction]Ordered By: Lizet Linares on 12-10-2023 Hematocrit (Bld) [Volume fraction] 31.4 % 37-47 [facility] Immature granulocytes/100 WB C Auto (Bld)Ordered By: Lizet Linares on 12-10-2023 Immature granulocytes/100 WBC (Bld) 0.800 % 0.0-0.9 [facility] Comment on above: IG% - Immature Granu locytes (promyelocytes, myelocytes and metamyelocytes) > 1% indicates that a LEFT SHIFT is Present. Laboratory - Chemistry and C hemistry - challengeOrdered By: Lizet Linares on 12-10-2023 CO2 [Moles/Vol] 26.0 mmol/L 21.0-32.0 [facility] Urea nitrogen/Creatinine [Mass ratio] 24.2 mg/mg 10-20 [facility] Laboratory - Hematology and Cell countsOrdered By: Lizet Linares on 12-10-2023 MCH (RBC) [Entitic mass] 29.3 pg 27.0-32.0 [facility] MCHC (RBC) [Mass/Vol] 32.2 g/dL 32-36 [facility] Nucleated RBC/100 WBC (Bld) [Ratio] 0 % 0-5 [facility] Platelet mean volume (Bld) [Entitic vol] 10.1 fL 6.2-12.0 [facility] Platelets (Bld) [#/Vol] 268 10*3/uL 150-450 [facility] No Panel InformationOrdered By: Lizet Linares on 12-10-2023 Estimated GFR (MDRD) Amer 53 mL/min >60 [facility] Comment on above: GFR Calc Estimated GFR (MDRD) Non-Af Amer 44 mL/min >60 [facility] Comment on above: Non- GFR Calc 29.3 pg 27.0-32.0 [facility] 32.2 g/dL 32-36 [facility] 268 K/mm3 150-450 [facility] 10.1 fl 6.2-12.0 [facility] 0 % 0-5 [facility] 44 mL/min >60 [facility] 53 mL/min >60 [facility] 24.2 RATIO 10-20 [facility] 26.0 mmol/L 21.0-32.0 [facility] RBC Auto (Bld) [#/Vol]Ordere d By: Lizet Linares on 12-10-2023 RBC (Bld) [#/Vol] 3.45 10*6/uL 4.2-5.4 [facility] Serum or plasma calcium tai urement (mass/volume)Ordered By: Lizet Linares on 12-10-2023 Calcium [Mass/Vol] 8.5 mg/dL 8.5-10.1 [facility] Serum or plasma creatinine m easurement (mass/volume)Ordered By: Hollyjanellnatasha Linares on 12-10-2023 Creatinine [Mass/Vol] 1.32 mg/dL 0.55-1.02 [facility] Comment on above: The validity of the calculated GFR & GFRAA in patients over 70 years has not been determined. Clinical correlation is essential. Serum or plasma urea nitroge n measurement (mass/volume)Ordered By: Lizet Linares on 12-10-2023 Urea nitrogen [Mass/Vol] 32 mg/dL 7-18 [facility] Thin prep Papanicolaou smear with manual screeningOrdered By: christabarranquitasnatasha Linares on 12-10-2023 Thin prep Papanicolaou smear with manual screening 6 5-15 [facility] Absolute lymphocyte countOrd ered By: Hollyjanellnatasha Linares on 11-26-2023 Lymphocytes Auto (Unsp spec) [#/Vol] 2.84 10*3/uL 0.83-4.51 [facility] Automated lymphocyte count a s percentage of total leukocytesOrdered By: Lizet Linares on 11-26-2023 Lymphocytes/100 WBC Auto (Unsp spec) 40.7 % 19-41 [facility] Basophil percentageOrdered B y: Hollyjanellnatasha Linares on 11-26-2023 Basophil percentage 10.8 g/dL 12.0-15.0 [facility] Basophil percentage 230 mg/dL 74-106 [facility] Basophil percentage 7.1 g/dL 6.4-8.2 [facility] Basophil percentage 0.60 mg/dL 0.20-1.00 [facility] Basophil percentage 244 mg/dL <200 [facility] Basophil percentage 353 mg/dL <199 [facility] Basophil percentage 135 mmol/L 136-145 [facility] Basophil percentage 4.2 mmol/L 3.5-5.1 [facility] Basophil percentage 102 mmol/L 98-107 [facility] Basophils (Bld) [#/Vol] 7.0 10*3/uL 4.4-11.0 [facility] Basophils (Bld) [#/Vol] 3.5 10*3/uL 2.0-7.7 [facility] Basophils/100 WBC (Bld) 1.0 % 0-1 [facility] Basophils/100 WBC (Bld) 50.3 % 47-70 [facility] Basophils/100 WBC (Bld) 5.3 % 0-10 [facility] Basophils/100 WBC (Bld) 2.0 % 0-5 [facility] Bilirubin [Mass/Vol] 0.60 mg/dL 0.20-1.00 [facility] Comment on above: For patients on eltr ombopag therapy, use of Dimension [place] TBIL is not recommended. Chloride [Moles/Vol] 102 mmol/L 98-107 [facility] Cholesterol [Mass/Vol] 244 mg/dL <200 [facility] Comment on above: <200 mg/dL Desirable 200-240 mg/dL Borderline >240 mg/dL High Risk Eosinophils/100 WBC (Bld) 2.0 % 0-5 [facility] Glucose [Mass/Vol] 230 mg/dL 74-106 [facility] Comment on above: Glucose result great er than or equal to 200 mg/dLsuggests DIABETES MELLITUS per A.D.A. criteria. Hemoglobin (Bld) [Mass/Vol] 10.8 g/dL 12.0-15.0 [facility] Monocytes/100 WBC (Bld) 5.3 % 0-10 [facility] Neutrophils (Bld) [#/Vol] 3.5 10*3/uL 2.0-7.7 [facility] Neutrophils/100 WBC (Bld) 50.3 % 47-70 [facility] Potassium [Moles/Vol] 4.2 mmol/L 3.5-5.1 [facility] Protein [Mass/Vol] 7.1 g/dL 6.4-8.2 [facility] Sodium [Moles/Vol] 135 mmol/L 136-145 [facility] Triglyceride [Mass/Vol] 353 mg/dL <199 [facility] Comment on above: The drugs N-Acetylcy steine and Metamizole may falsely depress this assay.Serum Triglycerides Reference Interval Normal <150 mg/dL Borderline high 150 - 199 mg/dL High 200 - 499 mg/dL Very High > or = 500 mg/dL WBC (Bld) [#/Vol] 7.0 10*3/uL 4.4-11.0 [facility] Determination of erythrocyte mean corpuscular volume (MCV)Ordered By: Lizet Linares on 11-26-2023 MCV (RBC) [Entitic vol] 94.2 fL 81-99 [facility] Erythrocyte distribution wid th ratioOrdered By: [facility] Taytal on 11-26-2023 Erythrocyte distribution width (RBC) [Ratio] 14.4 % 11.6-14.6 [facility] Erythrocyte distribution wid th standard deviationOrdered By: [facility] on 11-26-2023 Erythrocyte distribution width (RBC) [Entitic vol] 49.4 fL 35.1-43.9 [facility] Hematocrit Auto (Bld) [Volum e fraction]Ordered By: [facility] on 11-26-2023 Hematocrit (Bld) [Volume fraction] 33.9 % 37-47 [facility] Immature granulocytes/100 WB C Auto (Bld)Ordered By: [facility] Tay[facility] on 11-26-2023 Immature granulocytes/100 WBC (Bld) 0.700 % 0.0-0.9 [facility] Comment on above: IG% - Immature Granu locytes (promyelocytes, myelocytes and metamyelocytes) > 1% indicates that a LEFT SHIFT is Present. Laboratory - Chemistry and C hemistry - challengeOrdered By: [facility] Tay[facility] on 11-26-2023 Albumin/Globulin [Mass ratio] 0.9 {ratio} 0.9-2.4 [facility] ALP [Catalytic activity/Vol] 62 U/L 45-117 [facility] ALT [Catalytic activity/Vol] 29 U/L 13-56 [facility] Cholesterol in HDL (Body fld) [Mass/Vol] 23 mg/dL >40 [facility] Comment on above: The drugs N-Acetylcy steine and Metamizole may falsely depress this assay. Reference Range HDL <40 mg/dL Low HDL Cholesterol HDL >or= 60 mg/dL High HDL Cholesterol Cholesterol in LDL (Body fld) [Moles/Vol] 150 mg/dL 0-130 [facility] Cholesterol in VLDL Calc [Moles/Vol] 71 mg/dL 5-40 [facility] CO2 [Moles/Vol] 28.0 mmol/L 21.0-32.0 [facility] Globulin (S) [Mass/Vol] 3.8 g/dL 2.2-4.2 [facility] Urea nitrogen/Creatinine [Mass ratio] 11.7 mg/mg 10-20 [facility] Laboratory - Hematology and Cell countsOrdered By: Lizet Linares on 11-26-2023 MCH (RBC) [Entitic mass] 30.0 pg 27.0-32.0 [facility] MCHC (RBC) [Mass/Vol] 31.9 g/dL 32-36 [facility] Nucleated RBC/100 WBC (Bld) [Ratio] 0 % 0-5 [facility] Platelets (Bld) [#/Vol] 264 10*3/uL 150-450 [facility] No Panel InformationOrdered By: Lizet Linares on 11-26-2023 Estimated GFR (MDRD) Amer 39 mL/min >60 [facility] Comment on above: GFR Calc Estimated GFR (MDRD) Non-Af Amer 32 mL/min >60 [facility] Comment on above: Non- GFR Calc 30.0 pg 27.0-32.0 [facility] 31.9 g/dL 32-36 [facility] 264 K/mm3 150-450 [facility] 0 % 0-5 [facility] 32 mL/min >60 [facility] 39 mL/min >60 [facility] 11.7 RATIO 10-20 [facility] 3.8 g/dL 2.2-4.2 [facility] 0.9 RATIO 0.9-2.4 [facility] 62 U/L 45-117 [facility] 29 U/L 13-56 [facility] 28.0 mmol/L 21.0-32.0 [facility] Platelet mean volume Fercho-Ec ker (Bld) [Entitic vol]Ordered By: Lizet Linares on 11-26-2023 Platelet mean volume (Bld) [Entitic vol] 9.9 fL 6.2-12.0 [facility] RBC Auto (Bld) [#/Vol]Ordere d By: Lizet Linares on 11-26-2023 RBC (Bld) [#/Vol] 3.60 10*6/uL 4.2-5.4 [facility] Serum or plasma calcium tai urement (mass/volume)Ordered By: Lizet Linares on 11-26-2023 Calcium [Mass/Vol] 9.1 mg/dL 8.5-10.1 [facility] Serum or plasma creatinine m easurement (mass/volume)Ordered By: Lizet Linares on 11-26-2023 Creatinine [Mass/Vol] 1.71 mg/dL 0.55-1.02 [facility] Comment on above: The validity of the calculated GFR & GFRAA in patients over 70 years has not been determined. Clinical correlation is essential. Serum or plasma thyroid stim ulating hormone (TSH) measurement (units/volume)Ordered By: Hollybarranquitasnatasha Linares on 11-26-2023 TSH Qn 99.40 uIU/mL 0.358-3.74 [facility] Serum or plasma urea nitroge n measurement (mass/volume)Ordered By: Lizet Linares on 11-26-2023 Urea nitrogen [Mass/Vol] 20 mg/dL 7-18 [facility] Thin prep Papanicolaou smear with manual screeningOrdered By: Lizet Linares on 11-26-2023 Thin prep Papanicolaou smear with manual screening 3.3 g/dL 3.2-5.0 [facility] Thin prep Papanicolaou smear with manual screening 33 U/L 15-37 [facility] Thin prep Papanicolaou smear with manual screening 5 5-15 [facility] Whole blood hemoglobin A1c/t otal hemoglobin ratio (mass fraction)Ordered By: Lizet Linares on 11-26-2023 HbA1c (Bld) [Mass fraction] 13.1 % 3.8-5.6 [facility] Comment on above: Normal < 5.7 % Predi abetic 5.7 - 6.4 % Diabetic >or= 6.5 % Please note range changes. COVID-19 virus antigen assay Ordered By: Paresh Hernandez on 11-24-2023 SARS-CoV-2 (COVID-19) Ag IA.rapid Ql (Resp) [facility] Thin prep Papanicolaou smear with manual screeningOrdered By: Paresh Hernandez on 11-24-2023 Thin prep Papanicolaou smear with manual screening 128 mg/dL 74-106 [facility] Comment on above: MANAGEMENT OF PATIEN T CARE PER NURSING PROTOCOL Basophil percentageOrdered B y: Paresh Hernandez on 11-23-2023 Basophil percentage 139 mg/dL 74-106 [facility] Basophil percentage 136 mmol/L 136-145 [facility] Basophil percentage 4.4 mmol/L 3.5-5.1 [facility] Basophil percentage 106 mmol/L 98-107 [facility] Chloride [Moles/Vol] 106 mmol/L 98-107 [facility] Glucose [Mass/Vol] 139 mg/dL 74-106 [facility] Comment on above: Fasting Glucose resu lt greater than or equal to 126 mg/dL suggests DIABETES MELLITUS per A.D.A. criteria. Potassium [Moles/Vol] 4.4 mmol/L 3.5-5.1 [facility] Sodium [Moles/Vol] 136 mmol/L 136-145 [facility] Laboratory - Chemistry and C hemistry - challengeOrdered By: Paresh Hernandez on 11-23-2023 CO2 [Moles/Vol] 25.0 mmol/L 21.0-32.0 [facility] Urea nitrogen/Creatinine [Mass ratio] 8.1 mg/mg - [facility] No Panel InformationOrdered By: Paresh Hernandez on 11-23-2023 Estimated Creatinine Clearance Calc 33.99 ml/min [facility] Estimated GFR (MDRD) Amer 39 mL/min >60 [facility] Comment on above: GFR Calc Estimated GFR (MDRD) Non-Af Amer 32 mL/min >60 [facility] Comment on above: Non- GFR Calc 32 mL/min >60 [facility] 39 mL/min >60 [facility] 33.99 ml/min [facility] 8.1 RATIO 10- [facility] 25.0 mmol/L 21.0-32.0 [facility] Serum or plasma calcium tai urement (mass/volume)Ordered By: Paresh Hernandez on 11-23-2023 Calcium [Mass/Vol] 9.4 mg/dL 8.5-10.1 [facility] Serum or plasma creatinine m easurement (mass/volume)Ordered By: Paresh Hernandez on 11-23-2023 Creatinine [Mass/Vol] 1.72 mg/dL 0.55-1.02 [facility] Comment on above: The validity of the calculated GFR & GFRAA in patients over 70 years has not been determined. Clinical correlation is essential. Serum or plasma urea nitroge n measurement (mass/volume)Ordered By: Paresh Hernandez on 11-23-2023 Urea nitrogen [Mass/Vol] 14 mg/dL 7-18 [facility] Thin prep Papanicolaou smear with manual screeningOrdered By: Paresh Hernandez on 11-23-2023 Thin prep Papanicolaou smear with manual screening 5 5-15 [facility] Absolute lymphocyte countOrd ered By: John Shaw on 11-22-2023 Lymphocytes Auto (Unsp spec) [#/Vol] 2.87 10*3/uL 0.83-4.51 [facility] Automated lymphocyte count a s percentage of total leukocytesOrdered By: John Shaw on 11-22-2023 Lymphocytes/100 WBC Auto (Unsp spec) 41.6 % 19-41 [facility] Basophil percentageOrdered B y: John Shaw on 11-22-2023 Basophil percentage 11.0 g/dL 12.0-15.0 [facility] Basophils (Bld) [#/Vol] 6.9 10*3/uL 4.4-11.0 [facility] Basophils (Bld) [#/Vol] 3.6 10*3/uL 2.0-7.7 [facility] Basophils/100 WBC (Bld) 0.6 % 0-1 [facility] Basophils/100 WBC (Bld) 51.4 % 47-70 [facility] Basophils/100 WBC (Bld) 4.1 % 0-10 [facility] Basophils/100 WBC (Bld) 1.9 % 0-5 [facility] Eosinophils/100 WBC (Bld) 1.9 % 0-5 [facility] Hemoglobin (Bld) [Mass/Vol] 11.0 g/dL 12.0-15.0 [facility] Monocytes/100 WBC (Bld) 4.1 % 0-10 [facility] Neutrophils (Bld) [#/Vol] 3.6 10*3/uL 2.0-7.7 [facility] Neutrophils/100 WBC (Bld) 51.4 % 47-70 [facility] WBC (Bld) [#/Vol] 6.9 10*3/uL 4.4-11.0 [facility] Determination of erythrocyte mean corpuscular volume (MCV)Ordered By: John Shaw on 11-22-2023 MCV (RBC) [Entitic vol] 91.4 fL 81-99 [facility] Erythrocyte distribution wid th ratioOrdered By: John Shaw on 11-22-2023 Erythrocyte distribution width (RBC) [Ratio] 14.6 % 11.6-14.6 [facility] Erythrocyte distribution wid th standard deviationOrdered By: John Shaw on 11-22-2023 Erythrocyte distribution width (RBC) [Entitic vol] 48.6 fL 35.1-43.9 [facility] Hematocrit Auto (Bld) [Volum e fraction]Ordered By: John Shaw on 11-22-2023 Hematocrit (Bld) [Volume fraction] 33.8 % 37-47 [facility] Immature granulocytes/100 WB C Auto (Bld)Ordered By: John Shaw on 11-22-2023 Immature granulocytes/100 WBC (Bld) 0.400 % 0.0-0.9 [facility] Comment on above: IG% - Immature Granu locytes (promyelocytes, myelocytes and metamyelocytes) > 1% indicates that a LEFT SHIFT is Present. Laboratory - Hematology and Cell countsOrdered By: John Shaw on 11-22-2023 MCH (RBC) [Entitic mass] 29.7 pg 27.0-32.0 [facility] MCHC (RBC) [Mass/Vol] 32.5 g/dL 32-36 [facility] Nucleated RBC/100 WBC (Bld) [Ratio] 0 % 0-5 [facility] Platelets (Bld) [#/Vol] 260 10*3/uL 150-450 [facility] No Panel InformationOrdered By: John Shaw on 11-22-2023 29.7 pg 27.0-32.0 [facility] 32.5 g/dL 32-36 [facility] 260 K/mm3 150-450 [facility] 0 % 0-5 [facility] Platelet mean volume Fercho-Ec ker (Bld) [Entitic vol]Ordered By: John Shaw on 11-22-2023 Platelet mean volume (Bld) [Entitic vol] 10.2 fL 6.2-12.0 [facility] RBC Auto (Bld) [#/Vol]Ordere d By: John Shaw on 11-22-2023 RBC (Bld) [#/Vol] 3.70 10*6/uL 4.2-5.4 [facility] Bacteria identified Cx Nom ( U)Ordered By: John Shaw on 11-20-2023 Culture, urine Enterococcus faecalis [facility] Basophil percentageOrdered B y: John Shaw on 11-20-2023 Basophil percentage 2.3 mg/dL 2.5-4.9 [facility] Culture, urineOrdered By: Albert Shaw on 11-20-2023 Bacteria identified Cx Nom (U) Enterococcus faecalis [facility] Bacteria identified Cx Nom (U) Enterococcus faecalis [facility] Laboratory - Chemistry and C hemistry - challengeOrdered By: John Shaw on 11-20-2023 Magnesium [Mass/Vol] 2.1 mg/dL 1.6-2.6 [facility] No Panel InformationOrdered By: John Shaw on 11-20-2023 2.1 mg/dL 1.6-2.6 [facility] Absolute lymphocyte countOrd ered By: ED PROVIDER on 11-19-2023 Lymphocytes Auto (Unsp spec) [#/Vol] 4.21 10*3/uL 0.83-4.51 [facility] Automated lymphocyte count a s percentage of total leukocytesOrdered By: ED PROVIDER on 11-19-2023 Lymphocytes/100 WBC Auto (Unsp spec) 35.7 % 19-41 [facility] Basophil percentageOrdered B y: John Shaw on 11-19-2023 Basophil percentage 7.3 g/dL 6.4-8.2 [facility] Basophil percentage 0.50 mg/dL 0.20-1.00 [facility] Bilirubin [Mass/Vol] 0.50 mg/dL 0.20-1.00 [facility] Comment on above: For patients on eltr ombopag therapy, use of Dimension [place] TBIL is not recommended. Protein [Mass/Vol] 7.3 g/dL 6.4-8.2 [facility] Basophil percentageOrdered B y: Zack Choi on 11-19-2023 Basophil percentage 10-25 SEEN /hpf 0-5 [facility] Bilirubin [Mass/Vol] 0.60 mg/dL 0.20-1.00 [facility] Comment on above: For patients on eltr ombopag therapy, use of Dimension [place] TBIL is not recommended. Protein [Mass/Vol] 8.5 g/dL 6.4-8.2 [facility] Basophil percentageOrdered B y: ED PROVIDER on 11-19-2023 Basophils/100 WBC (Bld) 0.7 % 0-1 [facility] Chloride [Moles/Vol] 92 mmol/L 98-107 [facility] Eosinophils/100 WBC (Bld) 0.4 % 0-5 [facility] Glucose [Mass/Vol] 484 mg/dL 74-106 [facility] Comment on above: Critical Result(s) C alled at: 09:01:13 11/19/2023 by: Shonda March to Jessica Segal. Results read back by same.Glucose result greater than or equal to 200 mg/dLsuggests DIABETES MELLITUS per A.D.A. criteria. Hemoglobin (Bld) [Mass/Vol] 13.7 g/dL 12.0-15.0 [facility] Monocytes/100 WBC (Bld) 3.3 % 0-10 [facility] Neutrophils (Bld) [#/Vol] 7.0 10*3/uL 2.0-7.7 [facility] Neutrophils/100 WBC (Bld) 59.6 % 47-70 [facility] Potassium [Moles/Vol] 3.4 mmol/L 3.5-5.1 [facility] Comment on above: Slight Hemolysis, Re sult may be falsely increased. Sodium [Moles/Vol] 127 mmol/L 136-145 [facility] WBC (Bld) [#/Vol] 11.8 10*3/uL 4.4-11.0 [facility] Bilirubin Test strip Ql (U)O rdered By: Zack Choi on 11-19-2023 Bilirubin Ql (U) Negative Negative [facility] Determination of erythrocyte mean corpuscular volume (MCV)Ordered By: ED PROVIDER on 11-19-2023 MCV (RBC) [Entitic vol] 87.8 fL 81-99 [facility] Direct bilirubinOrdered By: Zack Choi on 11-19-2023 Bilirubin.direct [Mass/Vol] 0.16 mg/dL 0.00-0.30 [facility] Erythrocyte distribution wid th ratioOrdered By: ED PROVIDER on 11-19-2023 Erythrocyte distribution width (RBC) [Ratio] 13.5 % 11.6-14.6 [facility] Erythrocyte distribution wid th standard deviationOrdered By: ED PROVIDER on 11-19-2023 Erythrocyte distribution width (RBC) [Entitic vol] 43.6 fL 35.1-43.9 [facility] Hematocrit Auto (Bld) [Volum e fraction]Ordered By: ED PROVIDER on 11-19-2023 Hematocrit (Bld) [Volume fraction] 40.2 % 37-47 [facility] Immature granulocytes/100 WB C Auto (Bld)Ordered By: ED PROVIDER on 11-19-2023 Immature granulocytes/100 WBC (Bld) 0.300 % 0.0-0.9 [facility] Comment on above: IG% - Immature Granu locytes (promyelocytes, myelocytes and metamyelocytes) > 1% indicates that a LEFT SHIFT is Present. Ketones Test strip Ql (U)Ord ered By: Zack Choi on 11-19-2023 Ketones Ql (U) Negative Negative [facility] Laboratory - Chemistry and C hemistry - challengeOrdered By: John Shaw on 11-19-2023 Albumin/Globulin [Mass ratio] 0.9 {ratio} 0.9-2.4 [facility] ALP [Catalytic activity/Vol] 60 U/L 45-117 [facility] ALT [Catalytic activity/Vol] 27 U/L 13-56 [facility] Globulin (S) [Mass/Vol] 3.9 g/dL 2.2-4.2 [facility] Laboratory - Chemistry and C hemistry - challengeOrdered By: Zack Choi on 11-19-2023 ALP [Catalytic activity/Vol] 73 U/L -117 [facility] ALT [Catalytic activity/Vol] 33 U/L [facility] Globulin (S) [Mass/Vol] 4.6 g/dL 2.2-4.2 [facility] Lipase [Catalytic activity/Vol] 39 U/L 13- [facility] Comment on above: Please note:LIPASE r evised reference range effective 23. New Lipase methodology. Expected to produce lower values than the previous assay method. NEW Reference Range: 13 - 75 U/L Laboratory - Chemistry and C hemistry - challengeOrdered By: ED PROVIDER on 11-19-2023 CO2 [Moles/Vol] 24.0 mmol/L 21.0-32.0 [facility] Urea nitrogen/Creatinine [Mass ratio] 9.5 mg/mg 10-20 [facility] Laboratory - Hematology and Cell countsOrdered By: ED PROVIDER on 11-19-2023 MCH (RBC) [Entitic mass] 29.9 pg 27.0-32.0 [facility] MCHC (RBC) [Mass/Vol] 34.1 g/dL 32-36 [facility] Nucleated RBC/100 WBC (Bld) [Ratio] 0 % 0-5 [facility] Platelets (Bld) [#/Vol] 306 10*3/uL 150-450 [facility] Mucus LM Ql (Urine sed)Order ed By: Zack Choi on 11-19-2023 Mucus Ql (Urine sed) 0 SEEN /hpf [facility] Nitrite Test strip Ql (U)Ord ered By: Zack Choi on 11-19-2023 Nitrite Ql (U) Negative Negative [facility] No Panel InformationOrdered By: John Shaw on 11-19-2023 3.9 g/dL 2.2-4.2 [facility] 0.9 RATIO 0.9-2.4 [facility] 60 U/L -117 [facility] 27 U/L [facility] No Panel InformationOrdered By: Zack Choi on 11-19-2023 Urine RBC 0-5 SEEN /hpf 0-5 [facility] 0-5 SEEN /hpf 0-5 [facility] 39 U/L 13-75 [facility] No Panel InformationOrdered By: ED PROVIDER on 11-19-2023 Estimated Creatinine Clearance Calc 34.64 ml/min [facility] Estimated GFR (MDRD) Amer 40 mL/min >60 [facility] Comment on above: GFR Calc Estimated GFR (MDRD) Non-Af Amer 33 mL/min >60 [facility] Comment on above: Non- GFR Calc Platelet mean volume Fercho-Ec ker (Bld) [Entitic vol]Ordered By: ED PROVIDER on 11-19-2023 Platelet mean volume (Bld) [Entitic vol] 10.9 fL 6.2-12.0 [facility] Protein Test strip Ql (U)Ord ered By: Zack Choi on 11-19-2023 Protein Ql (U) 30 mg/dl Negative [facility] RBC Auto (Bld) [#/Vol]Ordere d By: ED PROVIDER on 11-19-2023 RBC (Bld) [#/Vol] 4.58 10*6/uL 4.2-5.4 [facility] Serum or plasma acetone tai urement (mass/volume)Ordered By: ED PROVIDER on 11-19-2023 Acetone [Mass/Vol] Negative NEG [facility] Serum or plasma calcium tai urement (mass/volume)Ordered By: ED PROVIDER on 11-19-2023 Calcium [Mass/Vol] 9.6 mg/dL 8.5-10.1 [facility] Serum or plasma creatinine m easurement (mass/volume)Ordered By: ED PROVIDER on 11-19-2023 Creatinine [Mass/Vol] 1.68 mg/dL 0.55-1.02 [facility] Comment on above: The validity of the calculated GFR & GFRAA in patients over 70 years has not been determined. Clinical correlation is essential. Serum or plasma urea nitroge n measurement (mass/volume)Ordered By: ED PROVIDER on 11-19-2023 Urea nitrogen [Mass/Vol] 16 mg/dL 7-18 [facility] Squamous epithelial cells de tection in urine sediment by light microscopyOrdered By: Zack Choi on 11-19-2023 Epithelial cells.squamous LM Ql (Urine sed) 10-25 SEEN /hpf 5-10 [facility] Thin prep Papanicolaou smear with manual screeningOrdered By: John Shaw on 11-19-2023 Thin prep Papanicolaou smear with manual screening 3.4 g/dL 3.2-5.0 [facility] Thin prep Papanicolaou smear with manual screening 24 U/L 15-37 [facility] Thin prep Papanicolaou smear with manual screeningOrdered By: Zack Choi on 11-19-2023 Thin prep Papanicolaou smear with manual screening 356 mg/dL 74-106 [facility] Comment on above: MANAGEMENT OF PATIEN T CARE PER NURSING PROTOCOL Thin prep Papanicolaou smear with manual screening 3.9 g/dL 3.2-5.0 [facility] Thin prep Papanicolaou smear with manual screening 30 U/L 15- [facility] Comment on above: Slight Hemolysis, Re sult may be falsely increased. Thin prep Papanicolaou smear with manual screeningOrdered By: ED PROVIDER on 11-19-2023 Thin prep Papanicolaou smear with manual screening 11 5-15 [facility] Urine blood detectionOrdered By: Zack Choi on 11-19-2023 RBC Ql (U) 10 /ul Negative [facility] Urine clarityOrdered By: Garland Choi on 11-19-2023 Clarity (U) Sl. Cloudy Clear [facility] Urine color determinationOrd ered By: Zack Choi on 11-19-2023 Color (U) Yellow Yellow [facility] Urine glucose detectionOrder ed By: Zack Choi on 11-19-2023 Glucose Ql (U) 1000 mg/dl Normal [facility] Urine leukocyte esterase det ection by dipstickOrdered By: Zack Choi on 11-19-2023 Leukocyte esterase Test strip Ql (U) 100 /ul Negative [facility] Urine pHOrdered By: Zack james on 11-19-2023 pH (U) 6.0 [pH] 5.0 - 8.0 [facility] Urine sediment bacteria coun t by microscopy (number/high power field)Ordered By: Zack Choi on 11-19-2023 Bacteria LM.HPF (Urine sed) [#/Area] 0 /[HPF] None Seen [facility] Urine sediment yeast count b y microscopy (number/high powered field)Ordered By: Zack Choi on 11-19-2023 Yeast LM.HPF (Urine sed) [#/Area] 2 /[HPF] None Seen [facility] Urine specific gravity measu rementOrdered By: Zack Choi on 11-19-2023 Specific gravity (U) [Rel density] 1.015 1.002-1.03 0 [facility] Urine urobilinogen measureme ntOrdered By: Zack Choi on 11-19-2023 Urobilinogen Ql (U) Normal mg/dl Normal [facility] Absolute lymphocyte countOrd ered By: Bronson Retana on 06-06-2023 Lymphocytes Auto (Unsp spec) [#/Vol] 2.81 10*3/uL 0.83-4.51 [facility] Basophil percentageOrdered B y: Bronson Retana on 06-06-2023 Basophils/100 WBC (Bld) 0.8 % 0-1 [facility] Chloride [Moles/Vol] 94 mmol/L 98-107 [facility] Eosinophils/100 WBC (Bld) 0.9 % 0-5 [facility] Glucose [Mass/Vol] 554 mg/dL 74-106 [facility] Comment on above: Critical Result(s) C alled at: 18:31:37 06/06/2023 by: AUSTYN ESTRELLA. TO BARBARA SALAS NURSE RECEPTIONIST Results read back by same.Glucose result greater than or equal to 200 mg/dLsuggests DIABETES MELLITUS per A.D.A. criteria. Neutrophils (Bld) [#/Vol] 3.2 10*3/uL 2.0-7.7 [facility] Neutrophils/100 WBC (Bld) 50.5 % 47-70 [facility] Potassium [Moles/Vol] 3.6 mmol/L 3.5-5.1 [facility] Sodium [Moles/Vol] 129 mmol/L 136-145 [facility] WBC (Bld) [#/Vol] 6.4 10*3/uL 4.4-11.0 [facility] Blood erythrocytes count (nu mber/volume)Ordered By: Bronson Retana on 06-06-2023 RBC (Bld) [#/Vol] 4.77 10*6/uL 4.2-5.4 [facility] Blood hemoglobin measurement (mass/volume)Ordered By: Bronson Retana on 06-06-2023 Hemoglobin (Bld) [Mass/Vol] 13.7 g/dL 12.0-15.0 [facility] Blood lymphocytes/100 leukoc ytesOrdered By: Bronson Retana on 06-06-2023 Lymphocytes/100 WBC (Bld) 44.0 % 19-41 [facility] Blood monocytes/100 leukocyt esOrdered By: Bronson Retana on 06-06-2023 Monocytes/100 WBC (Bld) 3.3 % 0-10 [facility] Blood platelet mean volumeOr dered By: Bronson Retana on 06-06-2023 Platelet mean volume (Bld) [Entitic vol] 10.7 fL 6.2-12.0 [facility] Determination of erythrocyte mean corpuscular volume (MCV)Ordered By: Bronson Retana on 06-06-2023 MCV (RBC) [Entitic vol] 89.3 fL 81-99 [facility] Glucose Glucometer (dC) [M ass/Vol]Ordered By: Bronson Retana on 06-06-2023 Glucose [Mass/Vol] 327 mg/dL 74-106 [facility] Comment on above: MANAGEMENT OF PATIEN T CARE PER NURSING PROTOCOL Hematocrit Auto (Bld) [Volum e fraction]Ordered By: Bronson Retana on 06-06-2023 Hematocrit (Bld) [Volume fraction] 42.6 % 37-47 [facility] Laboratory - Chemistry and C hemistry - challengeOrdered By: Bronson Retana on 06-06-2023 CO2 [Moles/Vol] 23.0 mmol/L 21.0-32.0 [facility] Urea nitrogen/Creatinine [Mass ratio] 7.5 mg/mg 10-20 [facility] - Hematology and Cell countsOrdered By: Bronson Retana on 06-06-2023 Erythrocyte distribution width (RBC) [Entitic vol] 44.1 fL 35.1-43.9 [facility] Erythrocyte distribution width (RBC) [Ratio] 13.4 % 11.6-14.6 [facility] Immature granulocytes/100 WBC (Bld) 0.500 % 0.0-0.9 [facility] Comment on above: IG% - Immature Granu locytes (promyelocytes, myelocytes and metamyelocytes) > 1% indicates that a LEFT SHIFT is Present. MCH (RBC) [Entitic mass] 28.7 pg 27.0-32.0 [facility] Nucleated RBC/100 WBC (Bld) [Ratio] 0 % 0-5 [facility] MCHC Auto (RBC) [Mass/Vol]Or dered By: Bronson Retana on 06-06-2023 MCHC (RBC) [Mass/Vol] 32.2 g/dL 32-36 [facility] No Panel InformationOrdered By: Bronson Retana on 06-06-2023 Estimated GFR (MDRD) Amer 52 mL/min >60 [facility] Comment on above: GFR Calc Estimated GFR (MDRD) Non-Af Amer 43 mL/min >60 [facility] Comment on above: Non- GFR Calc Platelets bldOrdered By: Yoni Retana on 06-06-2023 Platelets (Bld) [#/Vol] 233 10*3/uL 150-450 [facility] Serum or plasma acetone tai urement (mass/volume)Ordered By: Bronson Retana on 06-06-2023 Acetone [Mass/Vol] Negative NEG [facility] Serum or plasma calcium tai urement (mass/volume)Ordered By: Bronson Retana on 06-06-2023 Calcium [Mass/Vol] 8.9 mg/dL 8.5-10.1 [facility] Serum or plasma creatinine m easurement (mass/volume)Ordered By: Bronson Retana on 06-06-2023 Creatinine [Mass/Vol] 1.34 mg/dL 0.55-1.02 [facility] Comment on above: The validity of the calculated GFR & GFRAA in patients over 70 years has not been determined. Clinical correlation is essential. Serum or plasma urea nitroge n measurement (mass/volume)Ordered By: Bronson Retana on 06-06-2023 Urea nitrogen [Mass/Vol] 10 mg/dL 7-18 [facility] Thin prep Papanicolaou smear with manual screeningOrdered By: Bronson Retana on 06-06-2023 Thin prep Papanicolaou smear with manual screening 12 5-15 [facility] Absolute lymphocyte countOrd ered By: ED PROVIDER on 06-04-2023 Lymphocytes Auto (Unsp spec) [#/Vol] 2.58 10*3/uL 0.83-4.51 [facility] Basophil percentageOrdered B y: Bronson Retana on 06-04-2023 Basophil percentage 0-5 SEEN /hpf 0-5 [facility] Basophil percentageOrdered B y: ED PROVIDER on 06-04-2023 Basophils/100 WBC (Bld) 0.8 % 0-1 [facility] Bilirubin [Mass/Vol] 0.80 mg/dL 0.20-1.00 [facility] Comment on above: For patients on eltr ombopag therapy, use of Dimension [place] TBIL is not recommended. Chloride [Moles/Vol] 90 mmol/L 98-107 [facility] Eosinophils/100 WBC (Bld) 0.5 % 0-5 [facility] Glucose [Mass/Vol] 491 mg/dL 74-106 [facility] Comment on above: Critical Result(s) C alled at: 15:52:49 06/04/2023 by: Tomasa Romero. Results read back by same.Glucose result greater than or equal to 200 mg/dLsuggests DIABETES MELLITUS per A.D.A. criteria. Neutrophils (Bld) [#/Vol] 3.6 10*3/uL 2.0-7.7 [facility] Neutrophils/100 WBC (Bld) 55.4 % 47-70 [facility] Potassium [Moles/Vol] 3.8 mmol/L 3.5-5.1 [facility] Protein [Mass/Vol] 7.6 g/dL 6.4-8.2 [facility] Sodium [Moles/Vol] 127 mmol/L 136-145 [facility] WBC (Bld) [#/Vol] 6.5 10*3/uL 4.4-11.0 [facility] Bilirubin Test strip Ql (U)O rdered By: Bronson Retana on 06-04-2023 Bilirubin Ql (U) Negative Negative [facility] Blood erythrocytes count (nu mber/volume)Ordered By: ED PROVIDER on 06-04-2023 RBC (Bld) [#/Vol] 4.83 10*6/uL 4.2-5.4 [facility] Blood hemoglobin measurement (mass/volume)Ordered By: ED PROVIDER on 06-04-2023 Hemoglobin (Bld) [Mass/Vol] 14.0 g/dL 12.0-15.0 [facility] Blood lymphocytes/100 leukoc ytesOrdered By: ED PROVIDER on 06-04-2023 Lymphocytes/100 WBC (Bld) 39.6 % 19-41 [facility] Blood monocytes/100 leukocyt esOrdered By: ED PROVIDER on 06-04-2023 Monocytes/100 WBC (Bld) 3.2 % 0-10 [facility] Blood platelet mean volumeOr dered By: ED PROVIDER on 06-04-2023 Platelet mean volume (Bld) [Entitic vol] 10.7 fL 6.2-12.0 [facility] Determination of erythrocyte mean corpuscular volume (MCV)Ordered By: ED PROVIDER on 06-04-2023 MCV (RBC) [Entitic vol] 87.0 fL 81-99 [facility] Glucose Glucometer (dC) [M ass/Vol]Ordered By: Bronson Retana on 06-04-2023 Glucose [Mass/Vol] 274 mg/dL 74-106 [facility] Comment on above: MANAGEMENT OF PATIEN T CARE PER NURSING PROTOCOL Glucose [Mass/Vol] 379 mg/dL 74-106 [facility] Comment on above: MANAGEMENT OF PATIEN T CARE PER NURSING PROTOCOL Hematocrit Auto (Bld) [Volum e fraction]Ordered By: ED PROVIDER on 06-04-2023 Hematocrit (Bld) [Volume fraction] 42.0 % 37-47 [facility] Ketones Test strip Ql (U)Ord ered By: Bronson Retana on 06-04-2023 Ketones Ql (U) 15 mg/dl Negative [facility] Laboratory - Chemistry and C hemistry - challengeOrdered By: ED PROVIDER on 06-04-2023 ALP [Catalytic activity/Vol] 78 U/L 45-117 [facility] ALT [Catalytic activity/Vol] 29 U/L 13-56 [facility] CO2 [Moles/Vol] 27.0 mmol/L 21.0-32.0 [facility] Globulin (S) [Mass/Vol] 4.1 g/dL 2.2-4.2 [facility] Urea nitrogen/Creatinine [Mass ratio] 10.6 mg/mg 10-20 [facility] Laboratory - Chemistry and C hemistry - challengeOrdered By: Bronson Retana on 06-04-2023 Lipase [Catalytic activity/Vol] 39 U/L 13-75 [facility] Comment on above: Please note:LIPASE r evised reference range effective 23. New Lipase methodology. Expected to produce lower values than the previous assay method. NEW Reference Range: 13 - 75 U/[facility] Laboratory - Hematology and Cell countsOrdered By: ED PROVIDER on 06-04-2023 Erythrocyte distribution width (RBC) [Entitic vol] 42.1 fL 35.1-43.9 [facility] Erythrocyte distribution width (RBC) [Ratio] 13.3 % 11.6-14.6 [facility] Immature granulocytes/100 WBC (Bld) 0.500 % 0.0-0.9 [facility] Comment on above: IG% - Immature Granu locytes (promyelocytes, myelocytes and metamyelocytes) > 1% indicates that a LEFT SHIFT is Present. MCH (RBC) [Entitic mass] 29.0 pg 27.0-32.0 [facility] Nucleated RBC/100 WBC (Bld) [Ratio] 0 % 0-5 [facility] MCHC Auto (RBC) [Mass/Vol]Or dered By: ED PROVIDER on 06-04-2023 MCHC (RBC) [Mass/Vol] 33.3 g/dL 32-36 [facility] Mucus LM Ql (Urine sed)Order ed By: Bronson Retana on 06-04-2023 Mucus Ql (Urine sed) 0 SEEN /hpf [facility] Nitrite Test strip Ql (U)Ord ered By: Bronson Retana on 06-04-2023 Nitrite Ql (U) Negative Negative [facility] No Panel InformationOrdered By: ED PROVIDER on 06-04-2023 Estimated GFR (MDRD) Amer 53 mL/min >60 [facility] Comment on above: GFR Calc Estimated GFR (MDRD) Non-Af Amer 44 mL/min >60 [facility] Comment on above: Non- GFR Calc Platelets bldOrdered By: ED PROVIDER on 06-04-2023 Platelets (Bld) [#/Vol] 240 10*3/uL 150-450 [facility] Protein Test strip Ql (U)Ord ered By: Bronson Retana on 06-04-2023 Protein Ql (U) 30 mg/dl Negative [facility] Serum or plasma albumin tai urement (mass/volume)Ordered By: ED PROVIDER on 06-04-2023 Albumin [Mass/Vol] 3.5 g/dL 3.2-5.0 [facility] Serum or plasma albumin/glob ulin mass ratioOrdered By: ED PROVIDER on 06-04-2023 Albumin/Globulin [Mass ratio] 0.9 {ratio} 0.9-2.4 [facility] Serum or plasma calcium tai urement (mass/volume)Ordered By: ED PROVIDER on 06-04-2023 Calcium [Mass/Vol] 9.1 mg/dL 8.5-10.1 [facility] Serum or plasma creatinine m easurement (mass/volume)Ordered By: ED PROVIDER on 06-04-2023 Creatinine [Mass/Vol] 1.32 mg/dL 0.55-1.02 [facility] Comment on above: The validity of the calculated GFR & GFRAA in patients over 70 years has not been determined. Clinical correlation is essential. Serum or plasma urea nitroge n measurement (mass/volume)Ordered By: ED PROVIDER on 06-04-2023 Urea nitrogen [Mass/Vol] 14 mg/dL 7-18 [facility] Squamous epithelial cells de tection in urine sediment by light microscopyOrdered By: Bronson Retana on 06-04-2023 Epithelial cells.squamous LM Ql (Urine sed) 0-5 SEEN /hpf 5-10 [facility] Thin prep Papanicolaou smear with manual screeningOrdered By: ED PROVIDER on 06-04-2023 Thin prep Papanicolaou smear with manual screening 21 U/L 15-37 [facility] Thin prep Papanicolaou smear with manual screening 10 5-15 [facility] Urine blood detectionOrdered By: Bronson Retana on 06-04-2023 RBC Ql (U) 10 /ul Negative [facility] RBC Ql (U) 0 SEEN /hpf 0-5 [facility] Urine clarityOrdered By: Yoni Retana on 06-04-2023 Clarity (U) Clear Clear [facility] Urine color determinationOrd ered By: Bronson Retana on 06-04-2023 Color (U) Yellow Yellow [facility] Urine glucose detectionOrder ed By: Bronson Retana on 06-04-2023 Glucose Ql (U) 1000 mg/dl Normal [facility] Urine leukocyte esterase det ection by dipstickOrdered By: Bronson Retana on 06-04-2023 Leukocyte esterase Test strip Ql (U) 25 /ul Negative [facility] Urine pHOrdered By: Bronson bonilla on 06-04-2023 pH (U) 6.5 [pH] 5.0 - 8.0 [facility] Urine sediment bacteria coun t by microscopy (number/high power field)Ordered By: Bronson Retana on 06-04-2023 Bacteria LM.HPF (Urine sed) [#/Area] 0 /[HPF] None Seen [facility] Urine sediment yeast count b y microscopy (number/high powered field)Ordered By: Bronson Retana on 06-04-2023 Yeast LM.HPF (Urine sed) [#/Area] RARE /hpf None Seen [facility] Urine specific gravity measu rementOrdered By: Bronson Retana on 06-04-2023 Specific gravity (U) [Rel density] 1.010 1.002-1.03 0 [facility] Urobilinogen Auto test strip Ql (U)Ordered By: Bronson Retana on 06-04-2023 Urobilinogen Ql (U) Normal mg/dl Normal [facility] Absolute lymphocyte countOrd ered By: Dr. Peterson on 03-28-2023 Lymphocytes Auto (Unsp spec) [#/Vol] 2.76 10*3/uL 0.83-4.51 [facility] Basophil percentageOrdered B y: Dr. Peterson on 03-28-2023 Basophils/100 WBC (Bld) 0.5 % 0-1 [facility] Bilirubin [Mass/Vol] 0.60 mg/dL 0.20-1.00 [facility] Comment on above: For patients on eltr ombopag therapy, use of Dimension [place] TBIL is not recommended. Chloride [Moles/Vol] 100 mmol/L 98-107 [facility] Eosinophils/100 WBC (Bld) 0.9 % 0-5 [facility] Glucose [Mass/Vol] 374 mg/dL 74-106 [facility] Comment on above: Glucose result great er than or equal to 200 mg/dLsuggests DIABETES MELLITUS per A.D.A. criteria. Neutrophils (Bld) [#/Vol] 8.7 10*3/uL 2.0-7.7 [facility] Neutrophils/100 WBC (Bld) 71.5 % 47-70 [facility] Potassium [Moles/Vol] 4.3 mmol/L 3.5-5.1 [facility] Protein [Mass/Vol] 7.6 g/dL 6.4-8.2 [facility] Sodium [Moles/Vol] 134 mmol/L 136-145 [facility] WBC (Bld) [#/Vol] 12.1 10*3/uL 4.4-11.0 [facility] Blood erythrocytes count (nu mber/volume)Ordered By: Dr. Peterson on 03-28-2023 RBC (Bld) [#/Vol] 4.33 10*6/uL 4.2-5.4 [facility] Blood hemoglobin measurement (mass/volume)Ordered By: Dr. Peterson on 03-28-2023 Hemoglobin (Bld) [Mass/Vol] 12.4 g/dL 12.0-15.0 [facility] Blood lymphocytes/100 leukoc ytesOrdered By: Dr. Peterson on 03-28-2023 Lymphocytes/100 WBC (Bld) 22.8 % 19-41 [facility] Blood monocytes/100 leukocyt esOrdered By: Dr. Peterson on 03-28-2023 Monocytes/100 WBC (Bld) 3.9 % 0-10 [facility] Blood platelet mean volumeOr dered By: Dr. Peterson on 03-28-2023 Platelet mean volume (Bld) [Entitic vol] 9.3 fL 6.2-12.0 [facility] Determination of erythrocyte mean corpuscular volume (MCV)Ordered By: Dr. Peterson on 03-28-2023 MCV (RBC) [Entitic vol] 90.5 fL 81-99 [facility] Hematocrit Auto (Bld) [Volum e fraction]Ordered By: Dr. Peterson on 03-28-2023 Hematocrit (Bld) [Volume fraction] 39.2 % 37-47 [facility] Laboratory - Chemistry and C hemistry - challengeOrdered By: Dr. Peterson on 03-28-2023 ALP [Catalytic activity/Vol] 75 U/L 45-117 [facility] ALT [Catalytic activity/Vol] 32 U/L 13-56 [facility] CO2 [Moles/Vol] 22.0 mmol/L 21.0-32.0 [facility] Globulin (S) [Mass/Vol] 4.1 g/dL 2.2-4.2 [facility] Urea nitrogen/Creatinine [Mass ratio] 17.9 mg/mg 10-20 [facility] Laboratory - Hematology and Cell countsOrdered By: Dr. Peterson on 03-28-2023 Erythrocyte distribution width (RBC) [Entitic vol] 42.0 fL 35.1-43.9 [facility] Erythrocyte distribution width (RBC) [Ratio] 12.7 % 11.6-14.6 [facility] Immature granulocytes/100 WBC (Bld) 0.400 % 0.0-0.9 [facility] Comment on above: IG% - Immature Granu locytes (promyelocytes, myelocytes and metamyelocytes) > 1% indicates that a LEFT SHIFT is Present. MCH (RBC) [Entitic mass] 28.6 pg 27.0-32.0 [facility] Nucleated RBC/100 WBC (Bld) [Ratio] 0 % 0-5 [facility] MCHC Auto (RBC) [Mass/Vol]Or dered By: Dr. Peterson on 03-28-2023 MCHC (RBC) [Mass/Vol] 31.6 g/dL 32-36 [facility] No Panel InformationOrdered By: Dr. Peterson on 03-28-2023 Estimated Creatinine Clearance Calc 32.47 ml/min [facility] Estimated GFR (MDRD) Amer 52 mL/min >60 [facility] Comment on above: GFR Calc Estimated GFR (MDRD) Non-Af Amer 43 mL/min >60 [facility] Comment on above: Non- GFR Calc Platelets bldOrdered By: Dr. Peterson on 03-28-2023 Platelets (Bld) [#/Vol] 347 10*3/uL 150-450 [facility] Serum or plasma albumin tai urement (mass/volume)Ordered By: Dr. Peterson on 03-28-2023 Albumin [Mass/Vol] 3.5 g/dL 3.2-5.0 [facility] Serum or plasma albumin/glob ulin mass ratioOrdered By: Dr. Peterson on 03-28-2023 Albumin/Globulin [Mass ratio] 0.9 {ratio} 0.9-2.4 [facility] Serum or plasma calcium tai urement (mass/volume)Ordered By: Dr. Peterson on 03-28-2023 Calcium [Mass/Vol] 9.1 mg/dL 8.5-10.1 [facility] Serum or plasma creatinine m easurement (mass/volume)Ordered By: Dr. Peterson on 03-28-2023 Creatinine [Mass/Vol] 1.34 mg/dL 0.55-1.02 [facility] Comment on above: The validity of the calculated GFR & GFRAA in patients over 70 years has not been determined. Clinical correlation is essential. Serum or plasma urea nitroge n measurement (mass/volume)Ordered By: Dr. Peterson on 03-28-2023 Urea nitrogen [Mass/Vol] 24 mg/dL 7-18 [facility] Thin prep Papanicolaou smear with manual screeningOrdered By: Dr. Peterson on 03-28-2023 Thin prep Papanicolaou smear with manual screening 29 U/L 15-37 [facility] Thin prep Papanicolaou smear with manual screening 12 5-15 [facility] Basophil percentageOrdered B y: Lizet Crossjntal on 03-16-2023 Chloride [Moles/Vol] 105 mmol/L 98-107 [facility] Glucose [Mass/Vol] 171 mg/dL 74-106 [facility] Comment on above: Fasting Glucose resu lt greater than or equal to 126 mg/dL suggests DIABETES MELLITUS per A.D.A. criteria. Potassium [Moles/Vol] 3.8 mmol/L 3.5-5.1 [facility] Sodium [Moles/Vol] 139 mmol/L 136-145 [facility] WBC (Bld) [#/Vol] 7.0 10*3/uL 4.4-11.0 [facility] Blood erythrocytes count (nu mber/volume)Ordered By: Lizet Linares on 03-16-2023 RBC (Bld) [#/Vol] 3.74 10*6/uL 4.2-5.4 [facility] Blood hemoglobin measurement (mass/volume)Ordered By: Lizet Linares on 03-16-2023 Hemoglobin (Bld) [Mass/Vol] 10.8 g/dL 12.0-15.0 [facility] Blood platelet mean volumeOr dered By: Lizet Linares on 03-16-2023 Platelet mean volume (Bld) [Entitic vol] 9.6 fL 6.2-12.0 [facility] Determination of erythrocyte mean corpuscular volume (MCV)Ordered By: Lziet Linares on 03-16-2023 MCV (RBC) [Entitic vol] 93.0 fL 81-99 [facility] Hematocrit Auto (Bld) [Volum e fraction]Ordered By: Lizet Linares on 03-16-2023 Hematocrit (Bld) [Volume fraction] 34.8 % 37-47 [facility] Laboratory - Chemistry and C hemistry - challengeOrdered By: Lizet Linares on 03-16-2023 CO2 [Moles/Vol] 27.0 mmol/L 21.0-32.0 [facility] Urea nitrogen/Creatinine [Mass ratio] 18.0 mg/mg 10-20 [facility] Laboratory - Hematology and Cell countsOrdered By: Lizet Linares on 03-16-2023 Erythrocyte distribution width (RBC) [Entitic vol] 44.1 fL 35.1-43.9 [facility] Erythrocyte distribution width (RBC) [Ratio] 13.0 % 11.6-14.6 [facility] MCH (RBC) [Entitic mass] 28.9 pg 27.0-32.0 [facility] MCHC Auto (RBC) [Mass/Vol]Or dered By: Lizet Linares on 03-16-2023 MCHC (RBC) [Mass/Vol] 31.0 g/dL 32-36 [facility] No Panel InformationOrdered By: Lizet Linares on 03-16-2023 Estimated GFR (MDRD) Amer 73 mL/min >60 [facility] Comment on above: GFR Calc Estimated GFR (MDRD) Non-Af Amer 60 mL/min >60 [facility] Comment on above: Non- GFR Calc Platelets bldOrdered By: Bart Linares on 03-16-2023 Platelets (Bld) [#/Vol] 277 10*3/uL 150-450 [facility] Serum or plasma calcium tai urement (mass/volume)Ordered By: Lizet Linares on 03-16-2023 Calcium [Mass/Vol] 8.8 mg/dL 8.5-10.1 [facility] Serum or plasma creatinine m easurement (mass/volume)Ordered By: Lizet Linares on 03-16-2023 Creatinine [Mass/Vol] 1.00 mg/dL 0.55-1.02 [facility] Comment on above: The validity of the calculated GFR & GFRAA in patients over 70 years has not been determined. Clinical correlation is essential. Serum or plasma urea nitroge n measurement (mass/volume)Ordered By: Lizet Linares on 03-16-2023 Urea nitrogen [Mass/Vol] 18 mg/dL 7-18 [facility] Thin prep Papanicolaou smear with manual screeningOrdered By: Lizet Linares on 03-16-2023 Thin prep Papanicolaou smear with manual screening 7 5-15 [facility] Basophil percentageOrdered B y: Ganesh Garcia on 03-02-2023 Chloride [Moles/Vol] 106 mmol/L 98-107 [facility] Glucose [Mass/Vol] 241 mg/dL 74-106 [facility] Comment on above: Glucose result great er than or equal to 200 mg/dLsuggests DIABETES MELLITUS per A.D.A. criteria. Potassium [Moles/Vol] 4.2 mmol/L 3.5-5.1 [facility] Sodium [Moles/Vol] 138 mmol/L 136-145 [facility] WBC (Bld) [#/Vol] 6.4 10*3/uL 4.4-11.0 [facility] Blood erythrocytes count (nu mber/volume)Ordered By: Ganesh Garcia on 03-02-2023 RBC (Bld) [#/Vol] 3.81 10*6/uL 4.2-5.4 [facility] Blood hemoglobin measurement (mass/volume)Ordered By: Ganesh Garcia on 03-02-2023 Hemoglobin (Bld) [Mass/Vol] 11.2 g/dL 12.0-15.0 [facility] Blood platelet mean volumeOr dered By: Ganesh Garcia on 03-02-2023 Platelet mean volume (Bld) [Entitic vol] 9.5 fL 6.2-12.0 [facility] Determination of erythrocyte mean corpuscular volume (MCV)Ordered By: Ganesh Garcia on 03-02-2023 MCV (RBC) [Entitic vol] 92.7 fL 81-99 [facility] Hematocrit Auto (Bld) [Volum e fraction]Ordered By: Ganesh Garcia on 03-02-2023 Hematocrit (Bld) [Volume fraction] 35.3 % 37-47 [facility] - Chemistry and C hemistry - challengeOrdered By: Ganesh Garcia on 03-02-2023 CO2 [Moles/Vol] 26.0 mmol/L 21.0-32.0 [facility] Urea nitrogen/Creatinine [Mass ratio] 21.9 mg/mg 10-20 [facility] - Hematology and Cell countsOrdered By: Ganesh Garcia on 03-02-2023 Erythrocyte distribution width (RBC) [Entitic vol] 44.9 fL 35.1-43.9 [facility] Erythrocyte distribution width (RBC) [Ratio] 13.2 % 11.6-14.6 [facility] MCH (RBC) [Entitic mass] 29.4 pg 27.0-32.0 [facility] MCHC Auto (RBC) [Mass/Vol]Or dered By: Ganesh Garcia on 03-02-2023 MCHC (RBC) [Mass/Vol] 31.7 g/dL 32-36 [facility] No Panel InformationOrdered By: Ganesh Garcia on 03-02-2023 Estimated GFR (MDRD) Amer 81 mL/min >60 [facility] Comment on above: GFR Calc Estimated GFR (MDRD) Non-Af Amer 67 mL/min >60 [facility] Comment on above: Non- GFR Calc Platelets bldOrdered By: Robert Garcia on 03-02-2023 Platelets (Bld) [#/Vol] 292 10*3/uL 150-450 [facility] Serum or plasma calcium tai urement (mass/volume)Ordered By: Ganesh Garcia on 03-02-2023 Calcium [Mass/Vol] 9.0 mg/dL 8.5-10.1 [facility] Serum or plasma creatinine m easurement (mass/volume)Ordered By: Ganesh Garcia on 03-02-2023 Creatinine [Mass/Vol] 0.92 mg/dL 0.55-1.02 [facility] Comment on above: The validity of the calculated GFR & GFRAA in patients over 70 years has not been determined. Clinical correlation is essential. Serum or plasma urea nitroge n measurement (mass/volume)Ordered By: Ganesh Garcia on 03-02-2023 Urea nitrogen [Mass/Vol] 20 mg/dL 7-18 [facility] Thin prep Papanicolaou smear with manual screeningOrdered By: Ganesh Garcia on 03-02-2023 Thin prep Papanicolaou smear with manual screening 6 5-15 [facility] - Drug toxicology Ordered By: Dr. Renteria on 03-01-2023 Amphetamines Ql (U) Negative <1000 ng/mL [facility] Benzodiazepines Ql (U) Negative < 200 ng/mL [facility] Cannabinoids Screen Ql (U) Negative < 50 ng/mL [facility] Cocaine Ql (U) Negative < 300 ng/mL [facility] Opiates Ql (U) Negative < 300 ng/mL [facility] No Panel InformationOrdered By: Dr. Renteria on 03-01-2023 MDMA (Ecstasy) Screen Negative < 500 ng/mL [facility] Miscellaneous Test See comment [facility] Comment on above: [id number] 6+OXYCODONE-B UND (ng/mL) DRUG RESULT SCREEN CUTOFF____ Amphetamines,Urine Negative ng/mL 1000 Amphetamine test includes Amphetamine and Methamphetamine.Barbiturates Negative ng/mL 200Benzodiazepines Negative ng/mL 200Cannabinoid Negative ng/mL 20Cocaine (Metab) Negative ng/mL 300Opiates Negative ng/mL 300 Opiates test includes Codeine, Morphine, Hydromorphone, Hydrocodone. Oxycodone/Oxymorphone,Urine Negative ng/mL 300 Test includes Oxydodone and Oxymorphone. TESTING PERFORMED AT [facility]. ORIGINAL REPORT ON FILE IN LAB CONTAINS ADDITIONAL TEST SITE INFORMATION. Urine Barbiturates Screen Negative < 200 ng/mL [facility] Urine Drug Screen Comment [facility] Comment on above: CONFIRMATORY TESTING FOR [...] Urine Methadone Screen Negative < 300 ng/mL [facility] Urine phencyclidine (PCP) de tectionOrdered By: Dr. Renteria on 03-01-2023 Phencyclidine Ql (U) Negative < 25 ng/mL [facility] Basophil percentageOrdered B y: Lizet Linares on 02-16-2023 Chloride [Moles/Vol] 102 mmol/L 98-107 [facility] Glucose [Mass/Vol] 380 mg/dL 74-106 [facility] Comment on above: Glucose result great er than or equal to 200 mg/dLsuggests DIABETES MELLITUS per A.D.A. criteria. Potassium [Moles/Vol] 4.1 mmol/L 3.5-5.1 [facility] Sodium [Moles/Vol] 133 mmol/L 136-145 [facility] WBC (Bld) [#/Vol] 6.8 10*3/uL 4.4-11.0 [facility] Blood erythrocytes count (nu mber/volume)Ordered By: Lizet Linares on 02-16-2023 RBC (Bld) [#/Vol] 3.97 10*6/uL 4.2-5.4 [facility] Blood hemoglobin measurement (mass/volume)Ordered By: Lizet Linares on 02-16-2023 Hemoglobin (Bld) [Mass/Vol] 11.8 g/dL 12.0-15.0 [facility] Blood platelet mean volumeOr dered By: Lizet Linares on 02-16-2023 Platelet mean volume (Bld) [Entitic vol] 9.6 fL 6.2-12.0 [facility] Determination of erythrocyte mean corpuscular volume (MCV)Ordered By: Lizet Linares on 02-16-2023 MCV (RBC) [Entitic vol] 92.2 fL 81-99 [facility] Hematocrit Auto (Bld) [Volum e fraction]Ordered By: Lizet Linares on 02-16-2023 Hematocrit (Bld) [Volume fraction] 36.6 % 37-47 [facility] - Chemistry and C hemistry - challengeOrdered By: Lizet Linares on 02-16-2023 CO2 [Moles/Vol] 29.0 mmol/L 21.0-32.0 [facility] Urea nitrogen/Creatinine [Mass ratio] 19.4 mg/mg 10-20 [facility] - Hematology and Cell countsOrdered By: Lizet Linares on 02-16-2023 Erythrocyte distribution width (RBC) [Entitic vol] 45.4 fL 35.1-43.9 [facility] Erythrocyte distribution width (RBC) [Ratio] 13.4 % 11.6-14.6 [facility] MCH (RBC) [Entitic mass] 29.7 pg 27.0-32.0 [facility] MCHC Auto (RBC) [Mass/Vol]Or dered By: Lizet Linares on 02-16-2023 MCHC (RBC) [Mass/Vol] 32.2 g/dL 32-36 [facility] No Panel InformationOrdered By: Lizet Linares on 02-16-2023 Estimated GFR (MDRD) Amer 70 mL/min >60 [facility] Comment on above: GFR Calc Estimated GFR (MDRD) Non-Af Amer 58 mL/min >60 [facility] Comment on above: Non- GFR Calc Platelets bldOrdered By: Bart Linares on 02-16-2023 Platelets (Bld) [#/Vol] 251 10*3/uL 150-450 [facility] Serum or plasma calcium tai urement (mass/volume)Ordered By: Lizet Linares on 02-16-2023 Calcium [Mass/Vol] 8.7 mg/dL 8.5-10.1 [facility] Serum or plasma creatinine m easurement (mass/volume)Ordered By: Lizet Linares on 02-16-2023 Creatinine [Mass/Vol] 1.03 mg/dL 0.55-1.02 [facility] Comment on above: The validity of the calculated GFR & GFRAA in patients over 70 years has not been determined. Clinical correlation is essential. Serum or plasma urea nitroge n measurement (mass/volume)Ordered By: Lizet Linares on 02-16-2023 Urea nitrogen [Mass/Vol] 20 mg/dL 7-18 [facility] Thin prep Papanicolaou smear with manual screeningOrdered By: Lizet Linares on 02-16-2023 Thin prep Papanicolaou smear with manual screening 2 5-15 [facility] Absolute lymphocyte countOrd ered By: Lizet Linares on 02-02-2023 Lymphocytes Auto (Unsp spec) [#/Vol] 3.01 10*3/uL 0.83-4.51 [facility] Basophil percentageOrdered B y: Lizet Linares on 02-02-2023 Basophil percentage 247 mg/dL 74-106 [facility] Basophil percentage 136 mmol/L 136-145 [facility] Basophil percentage 4.2 mmol/L 3.5-5.1 [facility] Basophil percentage 103 mmol/L 98-107 [facility] Basophils (Bld) [#/Vol] 9.3 10*3/uL 4.4-11.0 [facility] Basophils (Bld) [#/Vol] 5.7 10*3/uL 2.0-7.7 [facility] Basophils/100 WBC (Bld) 60.8 % 47-70 [facility] Basophils/100 WBC (Bld) 0.4 % 0-5 [facility] Basophils/100 WBC (Bld) 0.6 % 0-1 [facility] Chloride [Moles/Vol] 103 mmol/L 98-107 [facility] Eosinophils/100 WBC (Bld) 0.4 % 0-5 [facility] Glucose [Mass/Vol] 247 mg/dL 74-106 [facility] Comment on above: Glucose result great er than or equal to 200 mg/dLsuggests DIABETES MELLITUS per A.D.A. criteria. Neutrophils (Bld) [#/Vol] 5.7 10*3/uL 2.0-7.7 [facility] Neutrophils/100 WBC (Bld) 60.8 % 47-70 [facility] Potassium [Moles/Vol] 4.2 mmol/L 3.5-5.1 [facility] Sodium [Moles/Vol] 136 mmol/L 136-145 [facility] WBC (Bld) [#/Vol] 9.3 10*3/uL 4.4-11.0 [facility] Blood erythrocytes count (nu mber/volume)Ordered By: Lizet Linares on 02-02-2023 RBC (Bld) [#/Vol] 3.83 10*6/uL 4.2-5.4 [facility] Blood hemoglobin measurement (mass/volume)Ordered By: Lizet Linares on 02-02-2023 Hemoglobin (Bld) [Mass/Vol] 11.3 g/dL 12.0-15.0 [facility] Blood lymphocytes/100 leukoc ytesOrdered By: Lizet Linares on 02-02-2023 Lymphocytes/100 WBC (Bld) 32.3 % 19-41 [facility] Blood monocytes/100 leukocyt esOrdered By: marcelle Linares on 02-02-2023 Monocytes/100 WBC (Bld) 5.6 % 0-10 [facility] Blood platelet mean volumeOr dered By: Lizet Linares on 02-02-2023 Platelet mean volume (Bld) [Entitic vol] 9.6 fL 6.2-12.0 [facility] Determination of erythrocyte mean corpuscular volume (MCV)Ordered By: Hollybarranquitasnatasha Linares on 02-02-2023 MCV (RBC) [Entitic vol] 90.9 fL 81-99 [facility] Hematocrit Auto (Bld) [Volum e fraction]Ordered By: Lizet Linares on 02-02-2023 Hematocrit (Bld) [Volume fraction] 34.8 % 37-47 [facility] - Chemistry and C hemistry - challengeOrdered By: [facility] L[facility] on 02-02-2023 CO2 [Moles/Vol] 26.0 mmol/L 21.0-32.0 [facility] Urea nitrogen/Creatinine [Mass ratio] 28.8 mg/mg 10-20 [facility] - Hematology and Cell countsOrdered By: Lizet Linares on 02-02-2023 Erythrocyte distribution width (RBC) [Entitic vol] 44.8 fL 35.1-43.9 [facility] Erythrocyte distribution width (RBC) [Ratio] 13.3 % 11.6-14.6 [facility] Immature granulocytes/100 WBC (Bld) 0.300 % 0.0-0.9 [facility] Comment on above: IG% - Immature Granu locytes (promyelocytes, myelocytes and metamyelocytes) > 1% indicates that a LEFT SHIFT is Present. MCH (RBC) [Entitic mass] 29.5 pg 27.0-32.0 [facility] Nucleated RBC/100 WBC (Bld) [Ratio] 0 % 0-5 [facility] Auto (RBC) [Mass/Vol]Or dered By: Lizet Linares on 02-02-2023 MCHC (RBC) [Mass/Vol] 32.5 g/dL 32-36 [facility] No Panel InformationOrdered By: Lizet Linares on 02-02-2023 Estimated GFR (MDRD) Amer 65 mL/min >60 [facility] Comment on above: GFR Calc Estimated GFR (MDRD) Non-Af Amer 53 mL/min >60 [facility] Comment on above: Non- GFR Calc 29.5 pg 27.0-32.0 [facility] 13.3 % 11.6-14.6 [facility] 44.8 fl 35.1-43.9 [facility] 0.300 % 0.0-0.9 [facility] 0 % 0-5 [facility] 53 mL/min >60 [facility] 65 mL/min >60 [facility] 28.8 RATIO 10-20 [facility] 26.0 mmol/L 21.0-32.0 [facility] Platelets bldOrdered By: Bart Linares on 02-02-2023 Platelets (Bld) [#/Vol] 299 10*3/uL 150-450 [facility] Serum or plasma calcium tai urement (mass/volume)Ordered By: Lizet Linares on 02-02-2023 Calcium [Mass/Vol] 8.0 mg/dL 8.5-10.1 [facility] Serum or plasma creatinine m easurement (mass/volume)Ordered By: Lizet Linares on 02-02-2023 Creatinine [Mass/Vol] 1.11 mg/dL 0.55-1.02 [facility] Comment on above: The validity of the calculated GFR & GFRAA in patients over 70 years has not been determined. Clinical correlation is essential. Serum or plasma urea nitroge n measurement (mass/volume)Ordered By: Lizet Linares on 02-02-2023 Urea nitrogen [Mass/Vol] 32 mg/dL 7-18 [facility] Thin prep Papanicolaou smear with manual screeningOrdered By: Lizet Linares on 02-02-2023 Thin prep Papanicolaou smear with manual screening 7 5-15 [facility] Absolute lymphocyte countOrd ered By: ED PROVIDER on 01-29-2023 Lymphocytes Auto (Unsp spec) [#/Vol] 2.44 10*3/uL 0.83-4.51 [facility] Basophil percentageOrdered B y: ED PROVIDER on 01-29-2023 Basophil percentage 311 mg/dL 74-106 [facility] Basophil percentage 135 mmol/L 136-145 [facility] Basophil percentage 4.1 mmol/L 3.5-5.1 [facility] Basophil percentage 99 mmol/L 98-107 [facility] Basophils (Bld) [#/Vol] 12.0 10*3/uL 4.4-11.0 [facility] Basophils (Bld) [#/Vol] 9.0 10*3/uL 2.0-7.7 [facility] Basophils/100 WBC (Bld) 74.7 % 47-70 [facility] Basophils/100 WBC (Bld) 0.0 % 0-5 [facility] Basophils/100 WBC (Bld) 0.3 % 0-1 [facility] Chloride [Moles/Vol] 99 mmol/L 98-107 [facility] Eosinophils/100 WBC (Bld) 0.0 % 0-5 [facility] Glucose [Mass/Vol] 311 mg/dL 74-106 [facility] Comment on above: Glucose result great er than or equal to 200 mg/dLsuggests DIABETES MELLITUS per A.D.A. criteria. Neutrophils (Bld) [#/Vol] 9.0 10*3/uL 2.0-7.7 [facility] Neutrophils/100 WBC (Bld) 74.7 % 47-70 [facility] Potassium [Moles/Vol] 4.1 mmol/L 3.5-5.1 [facility] Sodium [Moles/Vol] 135 mmol/L 136-145 [facility] WBC (Bld) [#/Vol] 12.0 10*3/uL 4.4-11.0 [facility] Blood erythrocytes count (nu mber/volume)Ordered By: ED PROVIDER on 01-29-2023 RBC (Bld) [#/Vol] 4.25 10*6/uL 4.2-5.4 [facility] Blood hemoglobin measurement (mass/volume)Ordered By: ED PROVIDER on 01-29-2023 Hemoglobin (Bld) [Mass/Vol] 12.4 g/dL 12.0-15.0 [facility] Blood lymphocytes/100 leukoc ytesOrdered By: ED PROVIDER on 01-29-2023 Lymphocytes/100 WBC (Bld) 20.3 % 19-41 [facility] Blood monocytes/100 leukocyt esOrdered By: ED PROVIDER on 01-29-2023 Monocytes/100 WBC (Bld) 4.0 % 0-10 [facility] Blood platelet mean volumeOr dered By: ED PROVIDER on 01-29-2023 Platelet mean volume (Bld) [Entitic vol] 9.3 fL 6.2-12.0 [facility] Determination of erythrocyte mean corpuscular volume (MCV)Ordered By: ED PROVIDER on 01-29-2023 MCV (RBC) [Entitic vol] 89.2 fL 81-99 [facility] Hematocrit Auto (Bld) [Volum e fraction]Ordered By: ED PROVIDER on 01-29-2023 Hematocrit (Bld) [Volume fraction] 37.9 % 37-47 [facility] - Chemistry and C hemistry - challengeOrdered By: ED PROVIDER on 01-29-2023 CO2 [Moles/Vol] 28.0 mmol/L 21.0-32.0 [facility] Urea nitrogen/Creatinine [Mass ratio] 22.3 mg/mg 10-20 [facility] - Hematology and Cell countsOrdered By: ED PROVIDER on 01-29-2023 Erythrocyte distribution width (RBC) [Entitic vol] 43.1 fL 35.1-43.9 [facility] Erythrocyte distribution width (RBC) [Ratio] 13.2 % 11.6-14.6 [facility] Immature granulocytes/100 WBC (Bld) 0.700 % 0.0-0.9 [facility] Comment on above: IG% - Immature Granu locytes (promyelocytes, myelocytes and metamyelocytes) > 1% indicates that a LEFT SHIFT is Present. MCH (RBC) [Entitic mass] 29.2 pg 27.0-32.0 [facility] Nucleated RBC/100 WBC (Bld) [Ratio] 0 % 0-5 [facility] MCHC Auto (RBC) [Mass/Vol]Or dered By: ED PROVIDER on 01-29-2023 MCHC (RBC) [Mass/Vol] 32.7 g/dL 32-36 [facility] No Panel InformationOrdered By: Dr. Dunn on 01-29-2023 Troponin I High Sensitivity 13 pg/mL 3.0-54.0 [facility] Comment on above: Please Note: New Carolann t Units and Gender Specific Reference Ranges. For more information see Policy Stat Procedure [place] High Sensitivity Troponin (TNIH) and attachments. 13 pg/mL 3.0-54.0 [facility] D-Dimer Quantitative (PE/DVT) 0.39 FEU/ug/m 0.27-0.49 [facility] Comment on above: NORMAL D-Dimer level (<0.50) indicates no DVT or PE. 0.39 FEU/ug/m 0.27-0.49 [facility] No Panel InformationOrdered By: ED PROVIDER on 01-29-2023 Estimated Creatinine Clearance Calc 38.85 ml/min [facility] Estimated GFR (MDRD) Amer 64 mL/min >60 [facility] Comment on above: GFR Calc Estimated GFR (MDRD) Non-Af Amer 53 mL/min >60 [facility] Comment on above: Non- GFR Calc 29.2 pg 27.0-32.0 [facility] 13.2 % 11.6-14.6 [facility] 43.1 fl 35.1-43.9 [facility] 0.700 % 0.0-0.9 [facility] 0 % 0-5 [facility] 53 mL/min >60 [facility] 64 mL/min >60 [facility] 38.85 ml/min [facility] 22.3 RATIO 10-20 [facility] 28.0 mmol/L 21.0-32.0 [facility] Platelets bldOrdered By: ED PROVIDER on 01-29-2023 Platelets (Bld) [#/Vol] 347 10*3/uL 150-450 [facility] Serum or plasma calcium tai urement (mass/volume)Ordered By: ED PROVIDER on 01-29-2023 Calcium [Mass/Vol] 9.3 mg/dL 8.5-10.1 [facility] Serum or plasma creatinine m easurement (mass/volume)Ordered By: ED PROVIDER on 01-29-2023 Creatinine [Mass/Vol] 1.12 mg/dL 0.55-1.02 [facility] Comment on above: The validity of the calculated GFR & GFRAA in patients over 70 years has not been determined. Clinical correlation is essential. Serum or plasma urea nitroge n measurement (mass/volume)Ordered By: ED PROVIDER on 01-29-2023 Urea nitrogen [Mass/Vol] 25 mg/dL 7-18 [facility] Thin prep Papanicolaou smear with manual screeningOrdered By: ED PROVIDER on 01-29-2023 Thin prep Papanicolaou smear with manual screening 8 5-15 [facility] Basophil percentageOrdered B y: Ganesh Garcia on 01-19-2023 Basophil percentage 197 mg/dL 74-106 [facility] Basophil percentage 138 mmol/L 136-145 [facility] Basophil percentage 4.0 mmol/L 3.5-5.1 [facility] Basophil percentage 106 mmol/L 98-107 [facility] Basophils (Bld) [#/Vol] 6.4 10*3/uL 4.4-11.0 [facility] Chloride [Moles/Vol] 106 mmol/L 98-107 [facility] Glucose [Mass/Vol] 197 mg/dL 74-106 [facility] Comment on above: Fasting Glucose resu lt greater than or equal to 126 mg/dL suggests DIABETES MELLITUS per A.D.A. criteria. Potassium [Moles/Vol] 4.0 mmol/L 3.5-5.1 [facility] Sodium [Moles/Vol] 138 mmol/L 136-145 [facility] WBC (Bld) [#/Vol] 6.4 10*3/uL 4.4-11.0 [facility] Blood erythrocytes count (nu mber/volume)Ordered By: Ganesh Garcia on 01-19-2023 RBC (Bld) [#/Vol] 3.58 10*6/uL 4.2-5.4 [facility] Blood hemoglobin measurement (mass/volume)Ordered By: Ganesh Garcia on 01-19-2023 Hemoglobin (Bld) [Mass/Vol] 10.4 g/dL 12.0-15.0 [facility] Blood platelet mean volumeOr dered By: Ganesh Garcia on 01-19-2023 Platelet mean volume (Bld) [Entitic vol] 9.9 fL 6.2-12.0 [facility] Determination of erythrocyte mean corpuscular volume (MCV)Ordered By: Ganesh Garcia on 01-19-2023 MCV (RBC) [Entitic vol] 92.5 fL 81-99 [facility] Hematocrit Auto (Bld) [Volum e fraction]Ordered By: Ganesh Garcia on 01-19-2023 Hematocrit (Bld) [Volume fraction] 33.1 % 37-47 [facility] - Chemistry and C hemistry - challengeOrdered By: Ganesh Garcia on 01-19-2023 CO2 [Moles/Vol] 27.0 mmol/L 21.0-32.0 [facility] Urea nitrogen/Creatinine [Mass ratio] 19.3 mg/mg 10-20 [facility] - Hematology and Cell countsOrdered By: Ganesh Garcia on 01-19-2023 Erythrocyte distribution width (RBC) [Entitic vol] 46.8 fL 35.1-43.9 [facility] Erythrocyte distribution width (RBC) [Ratio] 13.6 % 11.6-14.6 [facility] MCH (RBC) [Entitic mass] 29.1 pg 27.0-32.0 [facility] MCHC Auto (RBC) [Mass/Vol]Or dered By: Ganesh Garcia on 01-19-2023 MCHC (RBC) [Mass/Vol] 31.4 g/dL 32-36 [facility] No Panel InformationOrdered By: Ganesh Garcia on 01-19-2023 Estimated GFR (MDRD) Amer 74 mL/min >60 [facility] Comment on above: GFR Calc Estimated GFR (MDRD) Non-Af Amer 61 mL/min >60 [facility] Comment on above: Non- GFR Calc 29.1 pg 27.0-32.0 [facility] 13.6 % 11.6-14.6 [facility] 46.8 fl 35.1-43.9 [facility] 61 mL/min >60 [facility] 74 mL/min >60 [facility] 19.3 RATIO 10-20 [facility] 27.0 mmol/L 21.0-32.0 [facility] Platelets bldOrdered By: Robert Garcia on 01-19-2023 Platelets (Bld) [#/Vol] 285 10*3/uL 150-450 [facility] Serum or plasma calcium tai urement (mass/volume)Ordered By: Ganesh Garcia on 01-19-2023 Calcium [Mass/Vol] 8.7 mg/dL 8.5-10.1 [facility] Serum or plasma creatinine m easurement (mass/volume)Ordered By: Ganesh Garcia on 01-19-2023 Creatinine [Mass/Vol] 0.98 mg/dL 0.55-1.02 [facility] Comment on above: The validity of the calculated GFR & GFRAA in patients over 70 years has not been determined. Clinical correlation is essential. Serum or plasma urea nitroge n measurement (mass/volume)Ordered By: Ganesh Garcia on 01-19-2023 Urea nitrogen [Mass/Vol] 19 mg/dL 7-18 [facility] Thin prep Papanicolaou smear with manual screeningOrdered By: Ganesh Garcia on 01-19-2023 Thin prep Papanicolaou smear with manual screening 5 5-15 [facility] Basophil percentageOrdered B y: Ganesh Garcia on 01-18-2023 Basophil percentage 103 mg/dL <200 [facility] Basophil percentage 325 mg/dL <199 [facility] Cholesterol [Mass/Vol] 103 mg/dL <200 [facility] Comment on above: <200 mg/dL Desirable 200-240 mg/dL Borderline >240 mg/dL High Risk Triglyceride [Mass/Vol] 325 mg/dL <199 [facility] Comment on above: The drugs N-Acetylcy steine and Metamizole may falsely depress this assay.Serum Triglycerides Reference Interval Normal <150 mg/dL Borderline high 150 - 199 mg/dL High 200 - 499 mg/dL Very High > or = 500 mg/dL Serum or plasma cholesterol in HDL measurement (mass/volume)Ordered By: Ganesh Garcia on 01-18-2023 Cholesterol in HDL [Mass/Vol] 23 mg/dL >40 [facility] Comment on above: The drugs N-Acetylcy steine and Metamizole may falsely depress this assay. Reference Range HDL <40 mg/dL Low HDL Cholesterol HDL >or= 60 mg/dL High HDL Cholesterol Serum or plasma cholesterol in VLDL measurement (mass/volume)Ordered By: Ganesh Garcia on 01-18-2023 Cholesterol in VLDL [Mass/Vol] 65 mg/dL 5-40 [facility] Serum or plasma low density lipoprotein (LDL) cholesterol measurement (mass/volume)Ordered By: Ganesh Garcia on 01-18-2023 Cholesterol in LDL [Mass/Vol] 15 mg/dL 0-130 [facility] Absolute lymphocyte countOrd ered By: Dr. Govea on 01-06-2023 Lymphocytes Auto (Unsp spec) [#/Vol] 2.51 10*3/uL 0.83-4.51 [facility] Basophil percentageOrdered B y: Dr. Govea on 01-06-2023 Basophil percentage 0 SEEN /hpf 0-5 [facility] Basophil percentage 170 mg/dL 74-106 [facility] Basophil percentage 139 mmol/L 136-145 [facility] Basophil percentage 4.6 mmol/L 3.5-5.1 [facility] Basophil percentage 103 mmol/L 98-107 [facility] Basophils (Bld) [#/Vol] 6.5 10*3/uL 4.4-11.0 [facility] Basophils (Bld) [#/Vol] 3.4 10*3/uL 2.0-7.7 [facility] Basophils/100 WBC (Bld) 53.1 % 47-70 [facility] Basophils/100 WBC (Bld) 1.7 % 0-5 [facility] Basophils/100 WBC (Bld) 0.5 % 0-1 [facility] Chloride [Moles/Vol] 103 mmol/L 98-107 [facility] Eosinophils/100 WBC (Bld) 1.7 % 0-5 [facility] Glucose [Mass/Vol] 170 mg/dL 74-106 [facility] Comment on above: Fasting Glucose resu lt greater than or equal to 126 mg/dL suggests DIABETES MELLITUS per A.D.A. criteria. Neutrophils (Bld) [#/Vol] 3.4 10*3/uL 2.0-7.7 [facility] Neutrophils/100 WBC (Bld) 53.1 % 47-70 [facility] Potassium [Moles/Vol] 4.6 mmol/L 3.5-5.1 [facility] Sodium [Moles/Vol] 139 mmol/L 136-145 [facility] WBC (Bld) [#/Vol] 6.5 10*3/uL 4.4-11.0 [facility] Bilirubin Test strip Ql (U)O rdered By: Dr. Govea on 01-06-2023 Bilirubin Ql (U) Negative Negative [facility] Blood erythrocytes count (nu mber/volume)Ordered By: Dr. Govea on 01-06-2023 RBC (Bld) [#/Vol] 4.01 10*6/uL 4.2-5.4 [facility] Blood hemoglobin measurement (mass/volume)Ordered By: Dr. Govea on 01-06-2023 Hemoglobin (Bld) [Mass/Vol] 11.6 g/dL 12.0-15.0 [facility] Blood lymphocytes/100 leukoc ytesOrdered By: Dr. Govea on 01-06-2023 Lymphocytes/100 WBC (Bld) 38.7 % 19-41 [facility] Blood monocytes/100 leukocyt esOrdered By: Dr. Govea on 01-06-2023 Monocytes/100 WBC (Bld) 5.7 % 0-10 [facility] Blood platelet mean volumeOr dered By: Dr. Govea on 01-06-2023 Platelet mean volume (Bld) [Entitic vol] 9.1 fL 6.2-12.0 [facility] Determination of erythrocyte mean corpuscular volume (MCV)Ordered By: Dr. Govea on 01-06-2023 MCV (RBC) [Entitic vol] 90.8 fL 81-99 [facility] Hematocrit Auto (Bld) [Volum e fraction]Ordered By: Dr. Govea on 01-06-2023 Hematocrit (Bld) [Volume fraction] 36.4 % 37-47 [facility] Ketones Test strip Ql (U)Ord ered By: Dr. Govea on 01-06-2023 Ketones Ql (U) Negative Negative [facility] - Chemistry and C hemistry - challengeOrdered By: Dr. Govea on 01-06-2023 CO2 [Moles/Vol] 28.0 mmol/L 21.0-32.0 [facility] Urea nitrogen/Creatinine [Mass ratio] 23.6 mg/mg 10-20 [facility] - Hematology and Cell countsOrdered By: Dr. Govea on 01-06-2023 Erythrocyte distribution width (RBC) [Entitic vol] 44.8 fL 35.1-43.9 [facility] Erythrocyte distribution width (RBC) [Ratio] 13.6 % 11.6-14.6 [facility] Immature granulocytes/100 WBC (Bld) 0.300 % 0.0-0.9 [facility] Comment on above: IG% - Immature Granu locytes (promyelocytes, myelocytes and metamyelocytes) > 1% indicates that a LEFT SHIFT is Present. MCH (RBC) [Entitic mass] 28.9 pg 27.0-32.0 [facility] Nucleated RBC/100 WBC (Bld) [Ratio] 0 % 0-5 [facility] MCHC Auto (RBC) [Mass/Vol]Or dered By: Dr. Govea on 01-06-2023 MCHC (RBC) [Mass/Vol] 31.9 g/dL 32-36 [facility] Mucus LM Ql (Urine sed)Order ed By: Dr. Govea on 01-06-2023 Mucus Ql (Urine sed) 0 SEEN /hpf [facility] Nitrite Test strip Ql (U)Ord ered By: Dr. Govea on 01-06-2023 Nitrite Ql (U) Negative Negative [facility] No Panel InformationOrdered By: Dr. Govea on 01-06-2023 Estimated Creatinine Clearance Calc 46.78 ml/min [facility] Estimated GFR (MDRD) Amer 79 mL/min >60 [facility] Comment on above: GFR Calc Estimated GFR (MDRD) Non-Af Amer 65 mL/min >60 [facility] Comment on above: Non- GFR Calc 28.9 pg 27.0-32.0 [facility] 13.6 % 11.6-14.6 [facility] 44.8 fl 35.1-43.9 [facility] 0.300 % 0.0-0.9 [facility] 0 % 0-5 [facility] 65 mL/min >60 [facility] 79 mL/min >60 [facility] 46.78 ml/min [facility] 23.6 RATIO 10-20 [facility] 28.0 mmol/L 21.0-32.0 [facility] Platelets bldOrdered By: Dr. Govea on 01-06-2023 Platelets (Bld) [#/Vol] 295 10*3/uL 150-450 [facility] Protein Test strip Ql (U)Ord ered By: Dr. Govea on 01-06-2023 Protein Ql (U) Negative Negative [facility] Serum or plasma calcium tai urement (mass/volume)Ordered By: Dr. Govea on 01-06-2023 Calcium [Mass/Vol] 9.2 mg/dL 8.5-10.1 [facility] Serum or plasma creatinine m easurement (mass/volume)Ordered By: Dr. Govea on 01-06-2023 Creatinine [Mass/Vol] 0.93 mg/dL 0.55-1.02 [facility] Comment on above: The validity of the calculated GFR & GFRAA in patients over 70 years has not been determined. Clinical correlation is essential. Serum or plasma urea nitroge n measurement (mass/volume)Ordered By: Dr. Govea on 01-06-2023 Urea nitrogen [Mass/Vol] 22 mg/dL 7-18 [facility] Squamous epithelial cells de tection in urine sediment by light microscopyOrdered By: Dr. Govea on 01-06-2023 Epithelial cells.squamous LM Ql (Urine sed) 0 SEEN /hpf 5-10 [facility] Thin prep Papanicolaou smear with manual screeningOrdered By: Dr. Govea on 01-06-2023 Thin prep Papanicolaou smear with manual screening 8 5-15 [facility] Urine blood detectionOrdered By: Dr. Govea on 01-06-2023 RBC Ql (U) Negative Negative [facility] RBC Ql (U) 0 SEEN /hpf 0-5 [facility] Urine clarityOrdered By: Dr. Govea on 01-06-2023 Clarity (U) Clear Clear [facility] Urine color determinationOrd ered By: Dr. Govea on 01-06-2023 Color (U) Yellow Yellow [facility] Urine glucose detectionOrder ed By: Dr. Govea on 01-06-2023 Glucose Ql (U) Normal mg/dl Normal [facility] Urine leukocyte esterase det ection by dipstickOrdered By: Dr. Govea on 01-06-2023 Leukocyte esterase Test strip Ql (U) Negative Negative [facility] Urine pHOrdered By: Dr. Jovanni hatch on 01-06-2023 pH (U) 7.0 [pH] 5.0 - 8.0 [facility] Urine sediment bacteria coun t by microscopy (number/high power field)Ordered By: Dr. Govea on 01-06-2023 Bacteria LM.HPF (Urine sed) [#/Area] 0 /[HPF] None Seen [facility] Urine specific gravity measu rementOrdered By: Dr. Govea on 01-06-2023 Specific gravity (U) [Rel density] 1.010 1.002-1.03 0 [facility] Urobilinogen Auto test strip Ql (U)Ordered By: Dr. Govea on 01-06-2023 Urobilinogen Ql (U) Normal mg/dl Normal [facility] Basophil percentageOrdered B y: Ganesh Garcia on 01-05-2023 Basophil percentage 175 mg/dL 74-106 [facility] Basophil percentage 140 mmol/L 136-145 [facility] Basophil percentage 4.1 mmol/L 3.5-5.1 [facility] Basophil percentage 104 mmol/L 98-107 [facility] Basophils (Bld) [#/Vol] 7.1 10*3/uL 4.4-11.0 [facility] Chloride [Moles/Vol] 104 mmol/L 98-107 [facility] Glucose [Mass/Vol] 175 mg/dL 74-106 [facility] Comment on above: Fasting Glucose resu lt greater than or equal to 126 mg/dL suggests DIABETES MELLITUS per A.D.A. criteria. Potassium [Moles/Vol] 4.1 mmol/L 3.5-5.1 [facility] Sodium [Moles/Vol] 140 mmol/L 136-145 [facility] WBC (Bld) [#/Vol] 7.1 10*3/uL 4.4-11.0 [facility] Blood erythrocytes count (nu mber/volume)Ordered By: Ganesh Garcia on 01-05-2023 RBC (Bld) [#/Vol] 3.70 10*6/uL 4.2-5.4 [facility] Blood hemoglobin measurement (mass/volume)Ordered By: Ganesh Garcia on 01-05-2023 Hemoglobin (Bld) [Mass/Vol] 11.0 g/dL 12.0-15.0 [facility] Blood platelet mean volumeOr dered By: Ganesh Garcia on 01-05-2023 Platelet mean volume (Bld) [Entitic vol] 9.1 fL 6.2-12.0 [facility] Determination of erythrocyte mean corpuscular volume (MCV)Ordered By: Ganesh Garcia on 01-05-2023 MCV (RBC) [Entitic vol] 91.9 fL 81-99 [facility] Hematocrit Auto (Bld) [Volum e fraction]Ordered By: Ganesh Garcia on 01-05-2023 Hematocrit (Bld) [Volume fraction] 34.0 % 37-47 [facility] - Chemistry and C hemistry - challengeOrdered By: Ganesh Garcia on 01-05-2023 CO2 [Moles/Vol] 28.0 mmol/L 21.0-32.0 [facility] Urea nitrogen/Creatinine [Mass ratio] 21.5 mg/mg 10-20 [facility] - Hematology and Cell countsOrdered By: Ganesh Garcia on 01-05-2023 Erythrocyte distribution width (RBC) [Entitic vol] 46.1 fL 35.1-43.9 [facility] Erythrocyte distribution width (RBC) [Ratio] 13.9 % 11.6-14.6 [facility] MCH (RBC) [Entitic mass] 29.7 pg 27.0-32.0 [facility] MCHC Auto (RBC) [Mass/Vol]Or dered By: Ganesh Garcia on 01-05-2023 MCHC (RBC) [Mass/Vol] 32.4 g/dL 32-36 [facility] No Panel InformationOrdered By: Ganesh Garcia on 01-05-2023 Estimated GFR (MDRD) Amer 75 mL/min >60 [facility] Comment on above: GFR Calc Estimated GFR (MDRD) Non-Af Amer 62 mL/min >60 [facility] Comment on above: Non- GFR Calc 29.7 pg 27.0-32.0 [facility] 13.9 % 11.6-14.6 [facility] 46.1 fl 35.1-43.9 [facility] 62 mL/min >60 [facility] 75 mL/min >60 [facility] 21.5 RATIO 10-20 [facility] 28.0 mmol/L 21.0-32.0 [facility] Platelets bldOrdered By: Robert Garcia on 01-05-2023 Platelets (Bld) [#/Vol] 299 10*3/uL 150-450 [facility] Serum or plasma calcium tai urement (mass/volume)Ordered By: Ganesh Garcia on 01-05-2023 Calcium [Mass/Vol] 9.0 mg/dL 8.5-10.1 [facility] Serum or plasma creatinine m easurement (mass/volume)Ordered By: Ganesh Garcia on 01-05-2023 Creatinine [Mass/Vol] 0.98 mg/dL 0.55-1.02 [facility] Comment on above: The validity of the calculated GFR & GFRAA in patients over 70 years has not been determined. Clinical correlation is essential. Serum or plasma urea nitroge n measurement (mass/volume)Ordered By: Ganesh Garcia on 01-05-2023 Urea nitrogen [Mass/Vol] 21 mg/dL 7-18 [facility] Thin prep Papanicolaou smear with manual screeningOrdered By: Ganesh Garcia on 01-05-2023 Thin prep Papanicolaou smear with manual screening 8 5-15 [facility] Basophil percentageOrdered B y: Lizet Linares on 12-28-2022 Basophil percentage 310 mg/dL 74-106 [facility] Basophil percentage 137 mmol/L 136-145 [facility] Basophil percentage 3.8 mmol/L 3.5-5.1 [facility] Basophil percentage 103 mmol/L 98-107 [facility] Chloride [Moles/Vol] 103 mmol/L 98-107 [facility] Glucose [Mass/Vol] 310 mg/dL 74-106 [facility] Comment on above: Glucose result great er than or equal to 200 mg/dLsuggests DIABETES MELLITUS per A.D.A. criteria. Potassium [Moles/Vol] 3.8 mmol/L 3.5-5.1 [facility] Sodium [Moles/Vol] 137 mmol/L 136-145 [facility] Laboratory - Chemistry and C hemistry - challengeOrdered By: Lizet Linares on 12-28-2022 CO2 [Moles/Vol] 26.0 mmol/L 21.0-32.0 [facility] Urea nitrogen/Creatinine [Mass ratio] 20.3 mg/mg 10-20 [facility] No Panel InformationOrdered By: Lizet Linares on 12-28-2022 Estimated GFR (MDRD) Amer 74 mL/min >60 [facility] Comment on above: GFR Calc Estimated GFR (MDRD) Non-Af Amer 61 mL/min >60 [facility] Comment on above: Non- GFR Calc 61 mL/min >60 [facility] 74 mL/min >60 [facility] 20.3 RATIO 10-20 [facility] 26.0 mmol/L 21.0-32.0 [facility] Serum or plasma calcium tai urement (mass/volume)Ordered By: Lizet Linares on 12-28-2022 Calcium [Mass/Vol] 8.7 mg/dL 8.5-10.1 [facility] Serum or plasma creatinine m easurement (mass/volume)Ordered By: Lizet Linares on 12-28-2022 Creatinine [Mass/Vol] 0.99 mg/dL 0.55-1.02 [facility] Comment on above: The validity of the calculated GFR & GFRAA in patients over 70 years has not been determined. Clinical correlation is essential. Serum or plasma urea nitroge n measurement (mass/volume)Ordered By: Lizet Linares on 12-28-2022 Urea nitrogen [Mass/Vol] 20 mg/dL 7-18 [facility] Thin prep Papanicolaou smear with manual screeningOrdered By: Lizet Linares on 12-28-2022 Thin prep Papanicolaou smear with manual screening 8 5-15 [facility] No Panel InformationOrdered By: Lizet Linares on 12-23-2022 Thyroid Stimulating Hormone (TSH) 0.40 uIU/mL 0.358-3.74 [facility] 0.40 uIU/mL 0.358-3.74 [facility] Whole blood hemoglobin A1c/t otal hemoglobin ratio (mass fraction)Ordered By: Lizet Linares on 12-23-2022 HbA1c (Bld) [Mass fraction] 7.9 % 3.8-5.6 [facility] Comment on above: Normal < 5.7 % Predi abetic 5.7 - 6.4 % Diabetic >or= 6.5 % Please note range changes. Basophil percentageOrdered B y: Lizet Linares on 12-22-2022 Basophil percentage 169 mg/dL 74-106 [facility] Basophil percentage 138 mmol/L 136-145 [facility] Basophil percentage 3.9 mmol/L 3.5-5.1 [facility] Basophil percentage 104 mmol/L 98-107 [facility] Basophils (Bld) [#/Vol] 7.4 10*3/uL 4.4-11.0 [facility] Chloride [Moles/Vol] 104 mmol/L 98-107 [facility] Glucose [Mass/Vol] 169 mg/dL 74-106 [facility] Comment on above: Fasting Glucose resu lt greater than or equal to 126 mg/dL suggests DIABETES MELLITUS per A.D.A. criteria. Potassium [Moles/Vol] 3.9 mmol/L 3.5-5.1 [facility] Sodium [Moles/Vol] 138 mmol/L 136-145 [facility] WBC (Bld) [#/Vol] 7.4 10*3/uL 4.4-11.0 [facility] Blood erythrocytes count (nu mber/volume)Ordered By: Lizet Linares on 12-22-2022 RBC (Bld) [#/Vol] 3.75 10*6/uL 4.2-5.4 [facility] Blood hemoglobin measurement (mass/volume)Ordered By: Lizet Linares on 12-22-2022 Hemoglobin (Bld) [Mass/Vol] 10.6 g/dL 12.0-15.0 [facility] Blood platelet mean volumeOr dered By: Lizet Linares on 12-22-2022 Platelet mean volume (Bld) [Entitic vol] 9.7 fL 6.2-12.0 [facility] Determination of erythrocyte mean corpuscular volume (MCV)Ordered By: Lizet Linares on 12-22-2022 MCV (RBC) [Entitic vol] 92.0 fL 81-99 [facility] Hematocrit Auto (Bld) [Volum e fraction]Ordered By: Lizet Linares on 12-22-2022 Hematocrit (Bld) [Volume fraction] 34.5 % 37-47 [facility] - Chemistry and C hemistry - challengeOrdered By: Lizet Linares on 12-22-2022 CO2 [Moles/Vol] 26.0 mmol/L 21.0-32.0 [facility] Urea nitrogen/Creatinine [Mass ratio] 23.8 mg/mg 10-20 [facility] - Hematology and Cell countsOrdered By: Lizet Linares on 12-22-2022 Erythrocyte distribution width (RBC) [Entitic vol] 44.8 fL 35.1-43.9 [facility] Erythrocyte distribution width (RBC) [Ratio] 13.4 % 11.6-14.6 [facility] MCH (RBC) [Entitic mass] 28.3 pg 27.0-32.0 [facility] MCHC Auto (RBC) [Mass/Vol]Or dered By: Lizet Linares on 12-22-2022 MCHC (RBC) [Mass/Vol] 30.7 g/dL 32-36 [facility] No Panel InformationOrdered By: Lizet Linares on 12-22-2022 Estimated GFR (MDRD) Amer 72 mL/min >60 [facility] Comment on above: GFR Calc Estimated GFR (MDRD) Non-Af Amer 60 mL/min >60 [facility] Comment on above: Non- GFR Calc 28.3 pg 27.0-32.0 [facility] 13.4 % 11.6-14.6 [facility] 44.8 fl 35.1-43.9 [facility] 60 mL/min >60 [facility] 72 mL/min >60 [facility] 23.8 RATIO 10-20 [facility] 26.0 mmol/L 21.0-32.0 [facility] Platelets bldOrdered By: Bart manjindernatasha Linares on 12-22-2022 Platelets (Bld) [#/Vol] 293 10*3/uL 150-450 [facility] Serum or plasma calcium tai urement (mass/volume)Ordered By: Lizet Linares on 12-22-2022 Calcium [Mass/Vol] 8.8 mg/dL 8.5-10.1 [facility] Serum or plasma creatinine m easurement (mass/volume)Ordered By: Lizet Linares on 12-22-2022 Creatinine [Mass/Vol] 1.01 mg/dL 0.55-1.02 [facility] Comment on above: The validity of the calculated GFR & GFRAA in patients over 70 years has not been determined. Clinical correlation is essential. Serum or plasma urea nitroge n measurement (mass/volume)Ordered By: Lizet Linares on 12-22-2022 Urea nitrogen [Mass/Vol] 24 mg/dL 7-18 [facility] Thin prep Papanicolaou smear with manual screeningOrdered By: Lizet Linares on 12-22-2022 Thin prep Papanicolaou smear with manual screening 8 5-15 [facility] Basophil percentageOrdered B y: Lizet Linares on 12-14-2022 Basophil percentage 170 mg/dL 74-106 [facility] Basophil percentage 139 mmol/L 136-145 [facility] Basophil percentage 4.1 mmol/L 3.5-5.1 [facility] Basophil percentage 104 mmol/L 98-107 [facility] Chloride [Moles/Vol] 104 mmol/L 98-107 [facility] Glucose [Mass/Vol] 170 mg/dL 74-106 [facility] Comment on above: Fasting Glucose resu lt greater than or equal to 126 mg/dL suggests DIABETES MELLITUS per A.D.A. criteria. Potassium [Moles/Vol] 4.1 mmol/L 3.5-5.1 [facility] Sodium [Moles/Vol] 139 mmol/L 136-145 [facility] - Chemistry and C hemistry - challengeOrdered By: Lizet Linares on 12-14-2022 CO2 [Moles/Vol] 27.0 mmol/L 21.0-32.0 [facility] Urea nitrogen/Creatinine [Mass ratio] 24.8 mg/mg 08-13 [facility] No Panel InformationOrdered By: Lizet Linares on 12-14-2022 Estimated GFR (MDRD) Amer 72 mL/min >60 [facility] Comment on above: GFR Calc Estimated GFR (MDRD) Non-Af Amer 60 mL/min >60 [facility] Comment on above: Non- GFR Calc 60 mL/min >60 [facility] 72 mL/min >60 [facility] 24.8 RATIO 08-13 [facility] 27.0 mmol/L 21.0-32.0 [facility] Serum or plasma calcium tai urement (mass/volume)Ordered By: Lizet Linares on 12-14-2022 Calcium [Mass/Vol] 9.0 mg/dL 8.5-10.1 [facility] Serum or plasma creatinine m easurement (mass/volume)Ordered By: Lizet Linares on 12-14-2022 Creatinine [Mass/Vol] 1.01 mg/dL 0.55-1.02 [facility] Comment on above: The validity of the calculated GFR & GFRAA in patients over 70 years has not been determined. Clinical correlation is essential. Serum or plasma urea nitroge n measurement (mass/volume)Ordered By: Lizet Linares on 12-14-2022 Urea nitrogen [Mass/Vol] 25 mg/dL 7-18 [facility] Thin prep Papanicolaou smear with manual screeningOrdered By: Lizet Linares on 12-14-2022 Thin prep Papanicolaou smear with manual screening 8 5-15 [facility] Basophil percentageOrdered B y: Lizet Linares on 12-08-2022 Basophil percentage 107 mg/dL 74-106 [facility] Basophil percentage 141 mmol/L 136-145 [facility] Basophil percentage 4.5 mmol/L 3.5-5.1 [facility] Basophil percentage 108 mmol/L 98-107 [facility] Basophils (Bld) [#/Vol] 6.6 10*3/uL 4.4-11.0 [facility] Chloride [Moles/Vol] 108 mmol/L 98-107 [facility] Glucose [Mass/Vol] 107 mg/dL 74-106 [facility] Comment on above: Fasting Glucose resu lt from 100 to 125 mg/dL suggests IMPAIRED HOMEOSTASIS per A.D.A. criteria. Potassium [Moles/Vol] 4.5 mmol/L 3.5-5.1 [facility] Sodium [Moles/Vol] 141 mmol/L 136-145 [facility] WBC (Bld) [#/Vol] 6.6 10*3/uL 4.4-11.0 [facility] Blood erythrocytes count (nu mber/volume)Ordered By: Lizet Linares on 12-08-2022 RBC (Bld) [#/Vol] 3.93 10*6/uL 4.2-5.4 [facility] Blood hemoglobin measurement (mass/volume)Ordered By: Lizet Linares on 12-08-2022 Hemoglobin (Bld) [Mass/Vol] 11.3 g/dL 12.0-15.0 [facility] Blood platelet mean volumeOr dered By: Lizet Linares on 12-08-2022 Platelet mean volume (Bld) [Entitic vol] 9.7 fL 6.2-12.0 [facility] Determination of erythrocyte mean corpuscular volume (MCV)Ordered By: Lizet Linares on 12-08-2022 MCV (RBC) [Entitic vol] 90.8 fL 81-99 [facility] Hematocrit Auto (Bld) [Volum e fraction]Ordered By: Lizet Linares on 12-08-2022 Hematocrit (Bld) [Volume fraction] 35.7 % 37-47 [facility] - Chemistry and C hemistry - challengeOrdered By: Lizet Linares on 12-08-2022 CO2 [Moles/Vol] 25.0 mmol/L 21.0-32.0 [facility] Urea nitrogen/Creatinine [Mass ratio] 26.2 mg/mg 10- [facility] - Hematology and Cell countsOrdered By: Lizet Linares on 12-08-2022 Erythrocyte distribution width (RBC) [Entitic vol] 45.8 fL 35.1-43.9 [facility] Erythrocyte distribution width (RBC) [Ratio] 13.8 % 11.6-14.6 [facility] MCH (RBC) [Entitic mass] 28.8 pg 27.0-32.0 [facility] MCHC Auto (RBC) [Mass/Vol]Or dered By: Lizet Linares on 12-08-2022 MCHC (RBC) [Mass/Vol] 31.7 g/dL 32-36 [facility] No Panel InformationOrdered By: Lizet Linares on 12-08-2022 Estimated GFR (MDRD) Amer 77 mL/min >60 [facility] Comment on above: GFR Calc Estimated GFR (MDRD) Non-Af Amer 64 mL/min >60 [facility] Comment on above: Non- GFR Calc 28.8 pg 27.0-32.0 [facility] 13.8 % 11.6-14.6 [facility] 45.8 fl 35.1-43.9 [facility] 64 mL/min >60 [facility] 77 mL/min >60 [facility] 26.2 RATIO 10- [facility] 25.0 mmol/L 21.0-32.0 [facility] Platelets bldOrdered By: Bart Linares on 12-08-2022 Platelets (Bld) [#/Vol] 287 10*3/uL 150-450 [facility] Serum or plasma calcium tai urement (mass/volume)Ordered By: Lizet Linares on 12-08-2022 Calcium [Mass/Vol] 9.0 mg/dL 8.5-10.1 [facility] Serum or plasma creatinine m easurement (mass/volume)Ordered By: Lizet Linares on 12-08-2022 Creatinine [Mass/Vol] 0.95 mg/dL 0.55-1.02 [facility] Comment on above: The validity of the calculated GFR & GFRAA in patients over 70 years has not been determined. Clinical correlation is essential. Serum or plasma urea nitroge n measurement (mass/volume)Ordered By: Lizet Linares on 12-08-2022 Urea nitrogen [Mass/Vol] 25 mg/dL 7-18 [facility] Thin prep Papanicolaou smear with manual screeningOrdered By: Lizet Linares on 12-08-2022 Thin prep Papanicolaou smear with manual screening 8 5-15 [facility] Basophil percentageOrdered B y: Lizet Linares on 11-24-2022 Basophil percentage 208 mg/dL 74-106 [facility] Basophil percentage 141 mmol/L 136-145 [facility] Basophil percentage 4.2 mmol/L 3.5-5.1 [facility] Basophil percentage 108 mmol/L 98-107 [facility] Basophils (Bld) [#/Vol] 6.2 10*3/uL 4.4-11.0 [facility] Chloride [Moles/Vol] 108 mmol/L 98-107 [facility] Glucose [Mass/Vol] 208 mg/dL 74-106 [facility] Comment on above: Glucose result great er than or equal to 200 mg/dLsuggests DIABETES MELLITUS per A.D.A. criteria. Potassium [Moles/Vol] 4.2 mmol/L 3.5-5.1 [facility] Sodium [Moles/Vol] 141 mmol/L 136-145 [facility] WBC (Bld) [#/Vol] 6.2 10*3/uL 4.4-11.0 [facility] Blood erythrocytes count (nu mber/volume)Ordered By: Lizet Linares on 11-24-2022 RBC (Bld) [#/Vol] 3.94 10*6/uL 4.2-5.4 [facility] Blood hemoglobin measurement (mass/volume)Ordered By: Lizet Linares on 11-24-2022 Hemoglobin (Bld) [Mass/Vol] 11.0 g/dL 12.0-15.0 [facility] Blood platelet mean volumeOr dered By: Lizet Linares on 11-24-2022 Platelet mean volume (Bld) [Entitic vol] 10.0 fL 6.2-12.0 [facility] Determination of erythrocyte mean corpuscular volume (MCV)Ordered By: Lizet Linares on 11-24-2022 MCV (RBC) [Entitic vol] 90.9 fL 81-99 [facility] Hematocrit Auto (Bld) [Volum e fraction]Ordered By: Lizet Linares on 11-24-2022 Hematocrit (Bld) [Volume fraction] 35.8 % 37-47 [facility] - Chemistry and C hemistry - challengeOrdered By: Lizet Linares on 11-24-2022 CO2 [Moles/Vol] 26.0 mmol/L 21.0-32.0 [facility] Urea nitrogen/Creatinine [Mass ratio] 17.6 mg/mg 10-20 [facility] - Hematology and Cell countsOrdered By: Lizet Linares on 11-24-2022 Erythrocyte distribution width (RBC) [Entitic vol] 46.9 fL 35.1-43.9 [facility] Erythrocyte distribution width (RBC) [Ratio] 14.0 % 11.6-14.6 [facility] MCH (RBC) [Entitic mass] 27.9 pg 27.0-32.0 [facility] MCHC Auto (RBC) [Mass/Vol]Or dered By: Lizet Linares on 11-24-2022 MCHC (RBC) [Mass/Vol] 30.7 g/dL 32-36 [facility] No Panel InformationOrdered By: Lizet Linares on 11-24-2022 Estimated GFR (MDRD) Amer 71 mL/min >60 [facility] Comment on above: GFR Calc Estimated GFR (MDRD) Non-Af Amer 59 mL/min >60 [facility] Comment on above: Non- GFR Calc 27.9 pg 27.0-32.0 [facility] 14.0 % 11.6-14.6 [facility] 46.9 fl 35.1-43.9 [facility] 59 mL/min >60 [facility] 71 mL/min >60 [facility] 17.6 RATIO 10-20 [facility] 26.0 mmol/L 21.0-32.0 [facility] Platelets bldOrdered By: Bart Linares on 11-24-2022 Platelets (Bld) [#/Vol] 270 10*3/uL 150-450 [facility] Serum or plasma calcium tai urement (mass/volume)Ordered By: Lizet Linares on 11-24-2022 Calcium [Mass/Vol] 8.7 mg/dL 8.5-10.1 [facility] Serum or plasma creatinine m easurement (mass/volume)Ordered By: Lizet Linares on 11-24-2022 Creatinine [Mass/Vol] 1.02 mg/dL 0.55-1.02 [facility] Comment on above: The validity of the calculated GFR & GFRAA in patients over 70 years has not been determined. Clinical correlation is essential. Serum or plasma urea nitroge n measurement (mass/volume)Ordered By: Lizet Linares on 11-24-2022 Urea nitrogen [Mass/Vol] 18 mg/dL 7-18 [facility] Thin prep Papanicolaou smear with manual screeningOrdered By: Lizet Linares on 11-24-2022 Thin prep Papanicolaou smear with manual screening 7 5-15 [facility] Basophil percentageOrdered B y: Lizet Linares on 11-10-2022 Basophil percentage 189 mg/dL 74-106 [facility] Basophil percentage 136 mmol/L 136-145 [facility] Basophil percentage 4.4 mmol/L 3.5-5.1 [facility] Basophil percentage 101 mmol/L 98-107 [facility] Basophils (Bld) [#/Vol] 7.5 10*3/uL 4.4-11.0 [facility] Chloride [Moles/Vol] 101 mmol/L 98-107 [facility] Glucose [Mass/Vol] 189 mg/dL 74-106 [facility] Comment on above: Fasting Glucose resu lt greater than or equal to 126 mg/dL suggests DIABETES MELLITUS per A.D.A. criteria. Potassium [Moles/Vol] 4.4 mmol/L 3.5-5.1 [facility] Comment on above: Slight Hemolysis, Re sult may be falsely increased. Sodium [Moles/Vol] 136 mmol/L 136-145 [facility] WBC (Bld) [#/Vol] 7.5 10*3/uL 4.4-11.0 [facility] Blood erythrocytes count (nu mber/volume)Ordered By: Lizet Linares on 11-10-2022 RBC (Bld) [#/Vol] 4.02 10*6/uL 4.2-5.4 [facility] Blood hemoglobin measurement (mass/volume)Ordered By: Lizet Linares on 11-10-2022 Hemoglobin (Bld) [Mass/Vol] 11.6 g/dL 12.0-15.0 [facility] Blood platelet mean volumeOr dered By: Hollybarranquitasnatasha Linares on 11-10-2022 Platelet mean volume (Bld) [Entitic vol] 10.0 fL 6.2-12.0 [facility] Determination of erythrocyte mean corpuscular volume (MCV)Ordered By: Lizet Linares on 11-10-2022 MCV (RBC) [Entitic vol] 88.1 fL 81-99 [facility] Hematocrit Auto (Bld) [Volum e fraction]Ordered By: Hollybarranquitasnatasha Linares on 11-10-2022 Hematocrit (Bld) [Volume fraction] 35.4 % 37-47 [facility] Laboratory - Chemistry and C hemistry - challengeOrdered By: Lizet Linares on 11-10-2022 CO2 [Moles/Vol] 27.0 mmol/L 21.0-32.0 [facility] Urea nitrogen/Creatinine [Mass ratio] 22.6 mg/mg 10-20 [facility] Laboratory - Hematology and Cell countsOrdered By: Lizet Linares on 11-10-2022 Erythrocyte distribution width (RBC) [Entitic vol] 44.0 fL 35.1-43.9 [facility] Erythrocyte distribution width (RBC) [Ratio] 13.6 % 11.6-14.6 [facility] MCH (RBC) [Entitic mass] 28.9 pg 27.0-32.0 [facility] MCHC Auto (RBC) [Mass/Vol]Or dered By: Lizet Linares on 11-10-2022 MCHC (RBC) [Mass/Vol] 32.8 g/dL 32-36 [facility] No Panel InformationOrdered By: Lizet Linares on 11-10-2022 Estimated GFR (MDRD) Amer 68 mL/min >60 [facility] Comment on above: GFR Calc Estimated GFR (MDRD) Non-Af Amer 56 mL/min >60 [facility] Comment on above: Non- GFR Calc 28.9 pg 27.0-32.0 [facility] 13.6 % 11.6-14.6 [facility] 44.0 fl 35.1-43.9 [facility] 56 mL/min >60 [facility] 68 mL/min >60 [facility] 22.6 RATIO 10-20 [facility] 27.0 mmol/L 21.0-32.0 [facility] Platelets bldOrdered By: Bart Linares on 11-10-2022 Platelets (Bld) [#/Vol] 292 10*3/uL 150-450 [facility] Serum or plasma calcium tai urement (mass/volume)Ordered By: Lizet Linares on 11-10-2022 Calcium [Mass/Vol] 8.9 mg/dL 8.5-10.1 [facility] Serum or plasma creatinine m easurement (mass/volume)Ordered By: Lizet Linares on 11-10-2022 Creatinine [Mass/Vol] 1.06 mg/dL 0.55-1.02 [facility] Comment on above: The validity of the calculated GFR & GFRAA in patients over 70 years has not been determined. Clinical correlation is essential. Serum or plasma urea nitroge n measurement (mass/volume)Ordered By: Lizet Linares on 11-10-2022 Urea nitrogen [Mass/Vol] 24 mg/dL 7-18 [facility] Thin prep Papanicolaou smear with manual screeningOrdered By: Lizet Linares on 11-10-2022 Thin prep Papanicolaou smear with manual screening 8 5-15 [facility] Whole blood hemoglobin A1c/t otal hemoglobin ratio (mass fraction)Ordered By: Lizet Linares on 11-10-2022 HbA1c (Bld) [Mass fraction] 11.3 % 3.8-5.6 [facility] Comment on above: Normal < 5.7 % Predi abetic 5.7 - 6.4 % Diabetic >or= 6.5 % Please note range changes. Absolute lymphocyte countOrd ered By: Dr. Camp on 11-05-2022 Lymphocytes Auto (Unsp spec) [#/Vol] 4.02 10*3/uL 0.83-4.51 [facility] Basophil percentageOrdered B y: Dr. Camp on 11-05-2022 Basophil percentage 441 mg/dL 74-106 [facility] Basophil percentage 133 mmol/L 136-145 [facility] Basophil percentage 4.7 mmol/L 3.5-5.1 [facility] Basophil percentage 99 mmol/L 98-107 [facility] Basophils (Bld) [#/Vol] 9.1 10*3/uL 4.4-11.0 [facility] Basophils (Bld) [#/Vol] 4.4 10*3/uL 2.0-7.7 [facility] Basophils/100 WBC (Bld) 0.8 % 0-1 [facility] Basophils/100 WBC (Bld) 48.7 % 47-70 [facility] Basophils/100 WBC (Bld) 1.7 % 0-5 [facility] Chloride [Moles/Vol] 99 mmol/L 98-107 [facility] Eosinophils/100 WBC (Bld) 1.7 % 0-5 [facility] Glucose [Mass/Vol] 441 mg/dL 74-106 [facility] Comment on above: Glucose result great er than or equal to 200 mg/dLsuggests DIABETES MELLITUS per A.D.A. criteria. Neutrophils (Bld) [#/Vol] 4.4 10*3/uL 2.0-7.7 [facility] Neutrophils/100 WBC (Bld) 48.7 % 47-70 [facility] Potassium [Moles/Vol] 4.7 mmol/L 3.5-5.1 [facility] Sodium [Moles/Vol] 133 mmol/L 136-145 [facility] WBC (Bld) [#/Vol] 9.1 10*3/uL 4.4-11.0 [facility] Blood erythrocytes count (nu mber/volume)Ordered By: Dr. Camp on 11-05-2022 RBC (Bld) [#/Vol] 4.28 10*6/uL 4.2-5.4 [facility] Blood hemoglobin measurement (mass/volume)Ordered By: Dr. Camp on 11-05-2022 Hemoglobin (Bld) [Mass/Vol] 12.1 g/dL 12.0-15.0 [facility] Blood lymphocytes/100 leukoc ytesOrdered By: Dr. Camp on 11-05-2022 Lymphocytes/100 WBC (Bld) 44.2 % 19-41 [facility] Blood monocytes/100 leukocyt esOrdered By: Dr. Camp on 11-05-2022 Monocytes/100 WBC (Bld) 4.2 % 0-10 [facility] Blood platelet mean volumeOr dered By: Dr. Camp on 11-05-2022 Platelet mean volume (Bld) [Entitic vol] 9.7 fL 6.2-12.0 [facility] Determination of erythrocyte mean corpuscular volume (MCV)Ordered By: Dr. Camp on 11-05-2022 MCV (RBC) [Entitic vol] 86.0 fL 81-99 [facility] Hematocrit Auto (Bld) [Volum e fraction]Ordered By: Dr. Camp on 11-05-2022 Hematocrit (Bld) [Volume fraction] 36.8 % 37-47 [facility] - Chemistry and C hemistry - challengeOrdered By: Dr. Camp on 11-05-2022 CO2 [Moles/Vol] 27.0 mmol/L 21.0-32.0 [facility] Urea nitrogen/Creatinine [Mass ratio] 18.8 mg/mg 10-20 [facility] - Hematology and Cell countsOrdered By: Dr. Camp on 11-05-2022 Erythrocyte distribution width (RBC) [Entitic vol] 42.0 fL 35.1-43.9 [facility] Erythrocyte distribution width (RBC) [Ratio] 13.3 % 11.6-14.6 [facility] Immature granulocytes/100 WBC (Bld) 0.400 % 0.0-0.9 [facility] Comment on above: IG% - Immature Granu locytes (promyelocytes, myelocytes and metamyelocytes) > 1% indicates that a LEFT SHIFT is Present. MCH (RBC) [Entitic mass] 28.3 pg 27.0-32.0 [facility] Nucleated RBC/100 WBC (Bld) [Ratio] 0.2 % 0-5 [facility] MCHC Auto (RBC) [Mass/Vol]Or dered By: Dr. Camp on 11-05-2022 MCHC (RBC) [Mass/Vol] 32.9 g/dL 32-36 [facility] No Panel InformationOrdered By: Dr. Camp on 11-05-2022 Troponin I High Sensitivity 8 pg/mL 3.0-54.0 [facility] Comment on above: Please Note: New Carolann t Units and Gender Specific Reference Ranges. For more information see Policy Stat Procedure [facility] High Sensitivity Troponin (TNIH) and attachments. 8 pg/mL 3.0-54.0 [facility] Estimated Creatinine Clearance Calc 33.99 ml/min [facility] Estimated GFR (MDRD) Amer 55 mL/min >60 [facility] Comment on above: GFR Calc Estimated GFR (MDRD) Non-Af Amer 45 mL/min >60 [facility] Comment on above: Non- GFR Calc 28.3 pg 27.0-32.0 [facility] 13.3 % 11.6-14.6 [facility] 42.0 fl 35.1-43.9 [facility] 0.400 % 0.0-0.9 [facility] 0.2 % 0-5 [facility] 45 mL/min >60 [facility] 55 mL/min >60 [facility] 33.99 ml/min [facility] 18.8 RATIO 10-20 [facility] 27.0 mmol/L 21.0-32.0 [facility] Platelets bldOrdered By: Dr. Camp on 11-05-2022 Platelets (Bld) [#/Vol] 290 10*3/uL 150-450 [facility] Serum or plasma calcium tai urement (mass/volume)Ordered By: Dr. Camp on 11-05-2022 Calcium [Mass/Vol] 9.5 mg/dL 8.5-10.1 [facility] Serum or plasma creatinine m easurement (mass/volume)Ordered By: Dr. Camp on 11-05-2022 Creatinine [Mass/Vol] 1.28 mg/dL 0.55-1.02 [facility] Comment on above: The validity of the calculated GFR & GFRAA in patients over 70 years has not been determined. Clinical correlation is essential. Serum or plasma urea nitroge n measurement (mass/volume)Ordered By: Dr. Camp on 11-05-2022 Urea nitrogen [Mass/Vol] 24 mg/dL 7-18 [facility] Thin prep Papanicolaou smear with manual screeningOrdered By: Dr. Camp on 11-05-2022 Thin prep Papanicolaou smear with manual screening 7 5-15 [facility] Basophil percentageOrdered B y: Lizet Linares on 10-30-2022 Basophil percentage 359 mg/dL 74-106 [facility] Basophil percentage 134 mmol/L 136-145 [facility] Basophil percentage 4.2 mmol/L 3.5-5.1 [facility] Basophil percentage 100 mmol/L 98-107 [facility] Chloride [Moles/Vol] 100 mmol/L 98-107 [facility] Glucose [Mass/Vol] 359 mg/dL 74-106 [facility] Comment on above: Glucose result great er than or equal to 200 mg/dLsuggests DIABETES MELLITUS per A.D.A. criteria. Potassium [Moles/Vol] 4.2 mmol/L 3.5-5.1 [facility] Sodium [Moles/Vol] 134 mmol/L 136-145 [facility] - Chemistry and C hemistry - challengeOrdered By: Lizet Linares on 10-30-2022 CO2 [Moles/Vol] 28.0 mmol/L 21.0-32.0 [facility] Urea nitrogen/Creatinine [Mass ratio] 23.1 mg/mg 10-20 [facility] No Panel InformationOrdered By: Lizet Linares on 10-30-2022 Estimated GFR (MDRD) Amer 54 mL/min >60 [facility] Comment on above: GFR Calc Estimated GFR (MDRD) Non-Af Amer 45 mL/min >60 [facility] Comment on above: Non- GFR Calc 45 mL/min >60 [facility] 54 mL/min >60 [facility] 23.1 RATIO 10-20 [facility] 28.0 mmol/L 21.0-32.0 [facility] Serum or plasma calcium tai urement (mass/volume)Ordered By: Lizet Linares on 10-30-2022 Calcium [Mass/Vol] 8.9 mg/dL 8.5-10.1 [facility] Serum or plasma creatinine m easurement (mass/volume)Ordered By: Lizet Linares on 10-30-2022 Creatinine [Mass/Vol] 1.30 mg/dL 0.55-1.02 [facility] Comment on above: The validity of the calculated GFR & GFRAA in patients over 70 years has not been determined. Clinical correlation is essential. Serum or plasma urea nitroge n measurement (mass/volume)Ordered By: Lizet Linares on 10-30-2022 Urea nitrogen [Mass/Vol] 30 mg/dL 7-18 [facility] Thin prep Papanicolaou smear with manual screeningOrdered By: Lizet Linares on 10-30-2022 Thin prep Papanicolaou smear with manual screening 6 5-15 [facility] Basophil percentageOrdered B y: Lizet Linares on 10-27-2022 Basophil percentage 295 mg/dL 74-106 [facility] Basophil percentage 134 mmol/L 136-145 [facility] Basophil percentage 4.3 mmol/L 3.5-5.1 [facility] Basophil percentage 100 mmol/L 98-107 [facility] Basophils (Bld) [#/Vol] 7.7 10*3/uL 4.4-11.0 [facility] Chloride [Moles/Vol] 100 mmol/L 98-107 [facility] Glucose [Mass/Vol] 295 mg/dL 74-106 [facility] Comment on above: Glucose result great er than or equal to 200 mg/dLsuggests DIABETES MELLITUS per A.D.A. criteria. Potassium [Moles/Vol] 4.3 mmol/L 3.5-5.1 [facility] Sodium [Moles/Vol] 134 mmol/L 136-145 [facility] WBC (Bld) [#/Vol] 7.7 10*3/uL 4.4-11.0 [facility] Blood erythrocytes count (nu mber/volume)Ordered By: Lizet Linares on 10-27-2022 RBC (Bld) [#/Vol] 4.02 10*6/uL 4.2-5.4 [facility] Blood hemoglobin measurement (mass/volume)Ordered By: Lizet Linares on 10-27-2022 Hemoglobin (Bld) [Mass/Vol] 11.4 g/dL 12.0-15.0 [facility] Blood platelet mean volumeOr dered By: Lizet Linares on 10-27-2022 Platelet mean volume (Bld) [Entitic vol] 10.4 fL 6.2-12.0 [facility] Determination of erythrocyte mean corpuscular volume (MCV)Ordered By: Lizet Linares on 10-27-2022 MCV (RBC) [Entitic vol] 88.1 fL 81-99 [facility] Hematocrit Auto (Bld) [Volum e fraction]Ordered By: Lizet Linares on 10-27-2022 Hematocrit (Bld) [Volume fraction] 35.4 % 37-47 [facility] - Chemistry and C hemistry - challengeOrdered By: Lizet Linares on 10-27-2022 CO2 [Moles/Vol] 29.0 mmol/L 21.0-32.0 [facility] Urea nitrogen/Creatinine [Mass ratio] 24.8 mg/mg 10-20 [facility] - Hematology and Cell countsOrdered By: Lizet Linares on 10-27-2022 Erythrocyte distribution width (RBC) [Entitic vol] 44.1 fL 35.1-43.9 [facility] Erythrocyte distribution width (RBC) [Ratio] 13.7 % 11.6-14.6 [facility] MCH (RBC) [Entitic mass] 28.4 pg 27.0-32.0 [facility] MCHC Auto (RBC) [Mass/Vol]Or dered By: Lizet Linares on 10-27-2022 MCHC (RBC) [Mass/Vol] 32.2 g/dL 32-36 [facility] No Panel InformationOrdered By: Lizet Linares on 10-27-2022 Estimated GFR (MDRD) Amer 61 mL/min >60 [facility] Comment on above: GFR Calc Estimated GFR (MDRD) Non-Af Amer 50 mL/min >60 [facility] Comment on above: Non- GFR Calc 28.4 pg 27.0-32.0 [facility] 13.7 % 11.6-14.6 [facility] 44.1 fl 35.1-43.9 [facility] 50 mL/min >60 [facility] 61 mL/min >60 [facility] 24.8 RATIO 10-20 [facility] 29.0 mmol/L 21.0-32.0 [facility] Platelets bldOrdered By: Bart Linares on 10-27-2022 Platelets (Bld) [#/Vol] 299 10*3/uL 150-450 [facility] Serum or plasma calcium tai urement (mass/volume)Ordered By: Lizet Linares on 10-27-2022 Calcium [Mass/Vol] 9.0 mg/dL 8.5-10.1 [facility] Serum or plasma creatinine m easurement (mass/volume)Ordered By: Lizet Linares on 10-27-2022 Creatinine [Mass/Vol] 1.17 mg/dL 0.55-1.02 [facility] Comment on above: The validity of the calculated GFR & GFRAA in patients over 70 years has not been determined. Clinical correlation is essential. Serum or plasma urea nitroge n measurement (mass/volume)Ordered By: Lizet Linares on 10-27-2022 Urea nitrogen [Mass/Vol] 29 mg/dL 7-18 [facility] Thin prep Papanicolaou smear with manual screeningOrdered By: Lizet Linares on 10-27-2022 Thin prep Papanicolaou smear with manual screening 5 5-15 [facility] Basophil percentageOrdered B y: Lizet Linares on 10-13-2022 Basophil percentage 332 mg/dL 74-106 [facility] Basophil percentage 134 mmol/L 136-145 [facility] Basophil percentage 4.4 mmol/L 3.5-5.1 [facility] Basophil percentage 96 mmol/L 98-107 [facility] Basophils (Bld) [#/Vol] 6.8 10*3/uL 4.4-11.0 [facility] Chloride [Moles/Vol] 96 mmol/L 98-107 [facility] Glucose [Mass/Vol] 332 mg/dL 74-106 [facility] Comment on above: Glucose result great er than or equal to 200 mg/dLsuggests DIABETES MELLITUS per A.D.A. criteria. Potassium [Moles/Vol] 4.4 mmol/L 3.5-5.1 [facility] Sodium [Moles/Vol] 134 mmol/L 136-145 [facility] WBC (Bld) [#/Vol] 6.8 10*3/uL 4.4-11.0 [facility] Blood erythrocytes count (nu mber/volume)Ordered By: Lizet Linares on 10-13-2022 RBC (Bld) [#/Vol] 4.15 10*6/uL 4.2-5.4 [facility] Blood hemoglobin measurement (mass/volume)Ordered By: Lizet Linares on 10-13-2022 Hemoglobin (Bld) [Mass/Vol] 11.8 g/dL 12.0-15.0 [facility] Blood platelet mean volumeOr dered By: Lizet Linares on 10-13-2022 Platelet mean volume (Bld) [Entitic vol] 10.0 fL 6.2-12.0 [facility] Determination of erythrocyte mean corpuscular volume (MCV)Ordered By: Lizet Linares on 10-13-2022 MCV (RBC) [Entitic vol] 87.5 fL 81-99 [facility] Hematocrit Auto (Bld) [Volum e fraction]Ordered By: Lizet Linares on 10-13-2022 Hematocrit (Bld) [Volume fraction] 36.3 % 37-47 [facility] - Chemistry and C hemistry - challengeOrdered By: Lizet Linares on 10-13-2022 CO2 [Moles/Vol] 29.0 mmol/L 21.0-32.0 [facility] Urea nitrogen/Creatinine [Mass ratio] 15.2 mg/mg 08-13 [facility] - Hematology and Cell countsOrdered By: Lizet Linares on 10-13-2022 Erythrocyte distribution width (RBC) [Entitic vol] 43.6 fL 35.1-43.9 [facility] Erythrocyte distribution width (RBC) [Ratio] 13.5 % 11.6-14.6 [facility] MCH (RBC) [Entitic mass] 28.4 pg 27.0-32.0 [facility] MCHC Auto (RBC) [Mass/Vol]Or dered By: Lizet Linares on 10-13-2022 MCHC (RBC) [Mass/Vol] 32.5 g/dL 32-36 [facility] No Panel InformationOrdered By: Lizet Linares on 10-13-2022 Estimated GFR (MDRD) Amer 50 mL/min >60 [facility] Comment on above: GFR Calc Estimated GFR (MDRD) Non-Af Amer 42 mL/min >60 [facility] Comment on above: Non- GFR Calc 28.4 pg 27.0-32.0 [facility] 13.5 % 11.6-14.6 [facility] 43.6 fl 35.1-43.9 [facility] 42 mL/min >60 [facility] 50 mL/min >60 [facility] 15.2 RATIO 08-13 [facility] 29.0 mmol/L 21.0-32.0 [facility] Platelets bldOrdered By: Bart Linares on 10-13-2022 Platelets (Bld) [#/Vol] 274 10*3/uL 150-450 [facility] Serum or plasma calcium tai urement (mass/volume)Ordered By: Lizet Linares on 10-13-2022 Calcium [Mass/Vol] 9.0 mg/dL 8.5-10.1 [facility] Serum or plasma creatinine m easurement (mass/volume)Ordered By: Lizet Linares on 10-13-2022 Creatinine [Mass/Vol] 1.38 mg/dL 0.55-1.02 [facility] Comment on above: The validity of the calculated GFR & GFRAA in patients over 70 years has not been determined. Clinical correlation is essential. Serum or plasma urea nitroge n measurement (mass/volume)Ordered By: Lizet Linares on 10-13-2022 Urea nitrogen [Mass/Vol] 21 mg/dL 7-18 [facility] Thin prep Papanicolaou smear with manual screeningOrdered By: Lizet Linares on 10-13-2022 Thin prep Papanicolaou smear with manual screening 9 5-15 [facility] Culture, urineOrdered By: Rae Hamilton on 10-11-2022 Bacteria identified Cx Nom (U) Culture exhibits no growth. [facility] Absolute lymphocyte countOrd ered By: Tip Hamilton on 10-09-2022 Lymphocytes Auto (Unsp spec) [#/Vol] 4.14 10*3/uL 0.83-4.51 [facility] Basophil percentageOrdered B y: Tip Hamilton on 10-09-2022 Basophil percentage 25-50 SEEN /hpf 0-5 [facility] Basophil percentage 272 mg/dL 74-106 [facility] Basophil percentage 6.9 g/dL 6.4-8.2 [facility] Basophil percentage 0.30 mg/dL 0.20-1.00 [facility] Basophil percentage 134 mmol/L 136-145 [facility] Basophil percentage 4.8 mmol/L 3.5-5.1 [facility] Basophil percentage 100 mmol/L 98-107 [facility] Basophils (Bld) [#/Vol] 9.9 10*3/uL 4.4-11.0 [facility] Basophils (Bld) [#/Vol] 5.0 10*3/uL 2.0-7.7 [facility] Basophils/100 WBC (Bld) 0.7 % 0-1 [facility] Basophils/100 WBC (Bld) 50.3 % 47-70 [facility] Basophils/100 WBC (Bld) 1.3 % 0-5 [facility] Bilirubin [Mass/Vol] 0.30 mg/dL 0.20-1.00 [facility] Comment on above: For patients on eltr ombopag therapy, use of Dimension [facility] TBIL is not recommended. Chloride [Moles/Vol] 100 mmol/L 98-107 [facility] Eosinophils/100 WBC (Bld) 1.3 % 0-5 [facility] Glucose [Mass/Vol] 272 mg/dL 74-106 [facility] Comment on above: Glucose result great er than or equal to 200 mg/dLsuggests DIABETES MELLITUS per A.D.A. criteria. Neutrophils (Bld) [#/Vol] 5.0 10*3/uL 2.0-7.7 [facility] Neutrophils/100 WBC (Bld) 50.3 % 47-70 [facility] Potassium [Moles/Vol] 4.8 mmol/L 3.5-5.1 [facility] Protein [Mass/Vol] 6.9 g/dL 6.4-8.2 [facility] Sodium [Moles/Vol] 134 mmol/L 136-145 [facility] WBC (Bld) [#/Vol] 9.9 10*3/uL 4.4-11.0 [facility] Bilirubin Test strip Ql (U)O rdered By: Tip Hamilton on 10-09-2022 Bilirubin Ql (U) Negative Negative [facility] Blood erythrocytes count (nu mber/volume)Ordered By: Tip Hamilton on 10-09-2022 RBC (Bld) [#/Vol] 4.11 10*6/uL 4.2-5.4 [facility] Blood hemoglobin measurement (mass/volume)Ordered By: Tip Hamilton on 10-09-2022 Hemoglobin (Bld) [Mass/Vol] 11.5 g/dL 12.0-15.0 [facility] Blood lymphocytes/100 leukoc ytesOrdered By: Tip Hamilton on 10-09-2022 Lymphocytes/100 WBC (Bld) 41.9 % 19-41 [facility] Blood monocytes/100 leukocyt esOrdered By: Tip Hamilton on 10-09-2022 Monocytes/100 WBC (Bld) 5.5 % 0-10 [facility] Blood platelet mean volumeOr dered By: Tip Hamilton on 10-09-2022 Platelet mean volume (Bld) [Entitic vol] 9.8 fL 6.2-12.0 [facility] Determination of erythrocyte mean corpuscular volume (MCV)Ordered By: Tip Hamilton on 10-09-2022 MCV (RBC) [Entitic vol] 86.9 fL 81-99 [facility] Direct bilirubinOrdered By: Tip Hamilton on 10-09-2022 Bilirubin.direct [Mass/Vol] 0.11 mg/dL 0.00-0.30 [facility] Hematocrit Auto (Bld) [Volum e fraction]Ordered By: Tip Hamilton on 10-09-2022 Hematocrit (Bld) [Volume fraction] 35.7 % 37-47 [facility] Ketones Test strip Ql (U)Ord ered By: Tip Hamilton on 10-09-2022 Ketones Ql (U) Negative Negative [facility] - Chemistry and C hemistry - challengeOrdered By: Tip aHmilton on 10-09-2022 ALP [Catalytic activity/Vol] 69 U/L 45-117 [facility] ALT [Catalytic activity/Vol] 25 U/L 13-56 [facility] CO2 [Moles/Vol] 29.0 mmol/L 21.0-32.0 [facility] [facility] Globulin (S) [Mass/Vol] 3.8 g/dL 2.2-4.2 [facility] Lipase [Catalytic activity/Vol] 89 U/L 73-393 [facility] Urea nitrogen/Creatinine [Mass ratio] 21.0 mg/mg 10-20 [facility] Laboratory - Hematology and Cell countsOrdered By: Tip Hamilton on 10-09-2022 Erythrocyte distribution width (RBC) [Entitic vol] 44.0 fL 35.1-43.9 [facility] Erythrocyte distribution width (RBC) [Ratio] 13.9 % 11.6-14.6 [facility] Immature granulocytes/100 WBC (Bld) 0.300 % 0.0-0.9 [facility] Comment on above: IG% - Immature Granu locytes (promyelocytes, myelocytes and metamyelocytes) > 1% indicates that a LEFT SHIFT is Present. MCH (RBC) [Entitic mass] 28.0 pg 27.0-32.0 [facility] Nucleated RBC/100 WBC (Bld) [Ratio] 0 % 0-5 [facility] MCHC Auto (RBC) [Mass/Vol]Or dered By: Tip Hamilton on 10-09-2022 MCHC (RBC) [Mass/Vol] 32.2 g/dL 32-36 [facility] Mucus LM Ql (Urine sed)Order ed By: Tip Hamilton on 10-09-2022 Mucus Ql (Urine sed) 0 SEEN /hpf [facility] Nitrite Test strip Ql (U)Ord ered By: Tip Hamilton on 10-09-2022 Nitrite Ql (U) Negative Negative [facility] No Panel InformationOrdered By: Tip Hamilton on 10-09-2022 Estimated Creatinine Clearance Calc 35.09 ml/min [facility] Estimated GFR (MDRD) Amer 57 mL/min >60 [facility] Comment on above: GFR Calc Estimated GFR (MDRD) Non-Af Amer 47 mL/min >60 [facility] Comment on above: Non- GFR Calc 28.0 pg 27.0-32.0 [facility] 13.9 % 11.6-14.6 [facility] 44.0 fl 35.1-43.9 [facility] 0.300 % 0.0-0.9 [facility] 0 % 0-5 [facility] 47 mL/min >60 [facility] 57 mL/min >60 [facility] 35.09 ml/min [facility] 21.0 RATIO 10-20 [facility] 3.8 g/dL 2.2-4.2 [facility] 89 U/L 73-393 [facility] 69 U/L 45-117 [facility] 25 U/L 13-56 [facility] 29.0 mmol/L 21.0-32.0 [facility] Platelets bldOrdered By: Kali Hamilton on 10-09-2022 Platelets (Bld) [#/Vol] 286 10*3/uL 150-450 [facility] Protein Test strip Ql (U)Ord ered By: Tip Hamilton on 10-09-2022 Protein Ql (U) 15 mg/dl Negative [facility] Serum or plasma albumin tai urement (mass/volume)Ordered By: Tip Hamilton on 10-09-2022 Albumin [Mass/Vol] 3.1 g/dL 3.2-5.0 [facility] Serum or plasma calcium tai urement (mass/volume)Ordered By: Tip Hamilton on 10-09-2022 Calcium [Mass/Vol] 8.8 mg/dL 8.5-10.1 [facility] Serum or plasma creatinine m easurement (mass/volume)Ordered By: Tip Hamilton on 10-09-2022 Creatinine [Mass/Vol] 1.24 mg/dL 0.55-1.02 [facility] Comment on above: The validity of the calculated GFR & GFRAA in patients over 70 years has not been determined. Clinical correlation is essential. Serum or plasma urea nitroge n measurement (mass/volume)Ordered By: Tip Hamilton on 10-09-2022 Urea nitrogen [Mass/Vol] 26 mg/dL 7-18 [facility] Squamous epithelial cells de tection in urine sediment by light microscopyOrdered By: Tip Hamilton on 10-09-2022 Epithelial cells.squamous LM Ql (Urine sed) 0-5 SEEN /hpf 5-10 [facility] Thin prep Papanicolaou smear with manual screeningOrdered By: Tip Hamilton on 10-09-2022 Thin prep Papanicolaou smear with manual screening 17 U/L 15-37 [facility] Thin prep Papanicolaou smear with manual screening 5 5-15 [facility] Urine blood detectionOrdered By: Tip Hamilton on 10-09-2022 RBC Ql (U) 10 /ul Negative [facility] RBC Ql (U) 0 SEEN /hpf 0-5 [facility] Urine clarityOrdered By: Kali Hamilton on 10-09-2022 Clarity (U) Sl. Cloudy Clear [facility] Urine color determinationOrd ered By: Tip Hamilton on 10-09-2022 Color (U) Yellow Yellow [facility] Urine glucose detectionOrder ed By: Tip Hamilton on 10-09-2022 Glucose Ql (U) 100 mg/dl Normal [facility] Urine leukocyte esterase det ection by dipstickOrdered By: Tip Hamilton on 10-09-2022 Leukocyte esterase Test strip Ql (U) 500 /ul Negative [facility] Urine pHOrdered By: Tip gonzalez on 10-09-2022 pH (U) 6.5 [pH] 5.0 - 8.0 [facility] Urine sediment bacteria coun t by microscopy (number/high power field)Ordered By: Tip Hamilton on 10-09-2022 Bacteria LM.HPF (Urine sed) [#/Area] 4 /[HPF] None Seen [facility] Urine specific gravity measu rementOrdered By: Tip Hamilton on 10-09-2022 Specific gravity (U) [Rel density] 1.010 1.002-1.03 0 [facility] Urobilinogen Auto test strip Ql (U)Ordered By: Tip Hamilton on 10-09-2022 Urobilinogen Ql (U) Normal mg/dl Normal [facility] Basophil percentageOrdered B y: Ganesh Garcia on 09-29-2022 Basophil percentage 426 mg/dL 74-106 [facility] Basophil percentage 132 mmol/L 136-145 [facility] Basophil percentage 4.1 mmol/L 3.5-5.1 [facility] Basophil percentage 98 mmol/L 98-107 [facility] Basophils (Bld) [#/Vol] 6.8 10*3/uL 4.4-11.0 [facility] Chloride [Moles/Vol] 98 mmol/L 98-107 [facility] Glucose [Mass/Vol] 426 mg/dL 74-106 [facility] Comment on above: Glucose result great er than or equal to 200 mg/dLsuggests DIABETES MELLITUS per A.D.A. criteria. Potassium [Moles/Vol] 4.1 mmol/L 3.5-5.1 [facility] Sodium [Moles/Vol] 132 mmol/L 136-145 [facility] WBC (Bld) [#/Vol] 6.8 10*3/uL 4.4-11.0 [facility] Blood erythrocytes count (nu mber/volume)Ordered By: Ganesh Garcia on 09-29-2022 RBC (Bld) [#/Vol] 4.11 10*6/uL 4.2-5.4 [facility] Blood hemoglobin measurement (mass/volume)Ordered By: Ganesh Garcia on 09-29-2022 Hemoglobin (Bld) [Mass/Vol] 11.5 g/dL 12.0-15.0 [facility] Blood platelet mean volumeOr dered By: Ganesh Garcia on 09-29-2022 Platelet mean volume (Bld) [Entitic vol] 10.2 fL 6.2-12.0 [facility] Determination of erythrocyte mean corpuscular volume (MCV)Ordered By: Ganesh Garcia on 09-29-2022 MCV (RBC) [Entitic vol] 85.9 fL 81-99 [facility] Hematocrit Auto (Bld) [Volum e fraction]Ordered By: Ganesh Garcia on 09-29-2022 Hematocrit (Bld) [Volume fraction] 35.3 % 37-47 [facility] - Chemistry and C hemistry - challengeOrdered By: Ganesh Garcia on 09-29-2022 CO2 [Moles/Vol] 27.0 mmol/L 21.0-32.0 [facility] Urea nitrogen/Creatinine [Mass ratio] 21.9 mg/mg 10-20 [facility] - Hematology and Cell countsOrdered By: Ganesh Garcia on 09-29-2022 Erythrocyte distribution width (RBC) [Entitic vol] 42.8 fL 35.1-43.9 [facility] Erythrocyte distribution width (RBC) [Ratio] 13.8 % 11.6-14.6 [facility] MCH (RBC) [Entitic mass] 28.0 pg 27.0-32.0 [facility] MCHC Auto (RBC) [Mass/Vol]Or dered By: Ganesh Garcia on 09-29-2022 MCHC (RBC) [Mass/Vol] 32.6 g/dL 32-36 [facility] No Panel InformationOrdered By: Ganesh Garcia on 09-29-2022 Estimated GFR (MDRD) Amer 63 mL/min >60 [facility] Comment on above: GFR Calc Estimated GFR (MDRD) Non-Af Amer 52 mL/min >60 [facility] Comment on above: Non- GFR Calc 28.0 pg 27.0-32.0 [facility] 13.8 % 11.6-14.6 [facility] 42.8 fl 35.1-43.9 [facility] 52 mL/min >60 [facility] 63 mL/min >60 [facility] 21.9 RATIO 10-20 [facility] 27.0 mmol/L 21.0-32.0 [facility] Platelets bldOrdered By: Robert Garcia on 09-29-2022 Platelets (Bld) [#/Vol] 289 10*3/uL 150-450 [facility] Serum or plasma calcium tai urement (mass/volume)Ordered By: Ganesh Garcia on 09-29-2022 Calcium [Mass/Vol] 9.0 mg/dL 8.5-10.1 [facility] Serum or plasma creatinine m easurement (mass/volume)Ordered By: Ganesh Garcia on 09-29-2022 Creatinine [Mass/Vol] 1.14 mg/dL 0.55-1.02 [facility] Comment on above: The validity of the calculated GFR & GFRAA in patients over 70 years has not been determined. Clinical correlation is essential. Serum or plasma urea nitroge n measurement (mass/volume)Ordered By: Ganesh Garcia on 09-29-2022 Urea nitrogen [Mass/Vol] 25 mg/dL 7-18 [facility] Thin prep Papanicolaou smear with manual screeningOrdered By: Ganesh Garcia on 09-29-2022 Thin prep Papanicolaou smear with manual screening 7 5-15 [facility] Basophil percentageOrdered B y: Ganesh Garcia on 09-15-2022 Basophil percentage 258 mg/dL 74-106 [facility] Basophil percentage 134 mmol/L 136-145 [facility] Basophil percentage 4.1 mmol/L 3.5-5.1 [facility] Basophil percentage 99 mmol/L 98-107 [facility] Basophils (Bld) [#/Vol] 7.0 10*3/uL 4.4-11.0 [facility] Chloride [Moles/Vol] 99 mmol/L 98-107 [facility] Glucose [Mass/Vol] 258 mg/dL 74-106 [facility] Comment on above: Glucose result great er than or equal to 200 mg/dLsuggests DIABETES MELLITUS per A.D.A. criteria. Potassium [Moles/Vol] 4.1 mmol/L 3.5-5.1 [facility] Sodium [Moles/Vol] 134 mmol/L 136-145 [facility] WBC (Bld) [#/Vol] 7.0 10*3/uL 4.4-11.0 [facility] Blood erythrocytes count (nu mber/volume)Ordered By: Ganesh Garcia on 09-15-2022 RBC (Bld) [#/Vol] 3.71 10*6/uL 4.2-5.4 [facility] Blood hemoglobin measurement (mass/volume)Ordered By: Ganesh Garcia on 09-15-2022 Hemoglobin (Bld) [Mass/Vol] 10.6 g/dL 12.0-15.0 [facility] Blood platelet mean volumeOr dered By: Ganesh Garcia on 09-15-2022 Platelet mean volume (Bld) [Entitic vol] 10.1 fL 6.2-12.0 [facility] Determination of erythrocyte mean corpuscular volume (MCV)Ordered By: Ganesh Garcia on 09-15-2022 MCV (RBC) [Entitic vol] 84.9 fL 81-99 [facility] Hematocrit Auto (Bld) [Volum e fraction]Ordered By: Ganesh Garcia on 09-15-2022 Hematocrit (Bld) [Volume fraction] 31.5 % 37-47 [facility] - Chemistry and C hemistry - challengeOrdered By: Ganesh Garcia on 09-15-2022 CO2 [Moles/Vol] 26.0 mmol/L 21.0-32.0 [facility] Urea nitrogen/Creatinine [Mass ratio] 22.8 mg/mg 10-20 [facility] - Hematology and Cell countsOrdered By: Ganesh Garcia on 09-15-2022 Erythrocyte distribution width (RBC) [Entitic vol] 43.3 fL 35.1-43.9 [facility] Erythrocyte distribution width (RBC) [Ratio] 14.0 % 11.6-14.6 [facility] MCH (RBC) [Entitic mass] 28.6 pg 27.0-32.0 [facility] MCHC Auto (RBC) [Mass/Vol]Or dered By: Ganesh Garcia on 09-15-2022 MCHC (RBC) [Mass/Vol] 33.7 g/dL 32-36 [facility] No Panel InformationOrdered By: Ganesh Garcia on 09-15-2022 Estimated GFR (MDRD) Amer 72 mL/min >60 [facility] Comment on above: GFR Calc Estimated GFR (MDRD) Non-Af Amer 60 mL/min >60 [facility] Comment on above: Non- GFR Calc 28.6 pg 27.0-32.0 [facility] 14.0 % 11.6-14.6 [facility] 43.3 fl 35.1-43.9 [facility] 60 mL/min >60 [facility] 72 mL/min >60 [facility] 22.8 RATIO 10-20 [facility] 26.0 mmol/L 21.0-32.0 [facility] Platelets bldOrdered By: Robert Garcia on 09-15-2022 Platelets (Bld) [#/Vol] 258 10*3/uL 150-450 [facility] Serum or plasma calcium tai urement (mass/volume)Ordered By: Ganesh Garcia on 09-15-2022 Calcium [Mass/Vol] 8.6 mg/dL 8.5-10.1 [facility] Serum or plasma creatinine m easurement (mass/volume)Ordered By: Ganesh Garcia on 09-15-2022 Creatinine [Mass/Vol] 1.01 mg/dL 0.55-1.02 [facility] Comment on above: The validity of the calculated GFR & GFRAA in patients over 70 years has not been determined. Clinical correlation is essential. Serum or plasma urea nitroge n measurement (mass/volume)Ordered By: Ganesh Garcia on 09-15-2022 Urea nitrogen [Mass/Vol] 23 mg/dL 7-18 [facility] Thin prep Papanicolaou smear with manual screeningOrdered By: Ganesh Garcia on 09-15-2022 Thin prep Papanicolaou smear with manual screening 9 5-15 [facility] Basophil percentageOrdered B y: Ganesh Garcia on 09-11-2022 Basophil percentage 246 mg/dL 74-106 [facility] Basophil percentage 136 mmol/L 136-145 [facility] Basophil percentage 4.3 mmol/L 3.5-5.1 [facility] Basophil percentage 100 mmol/L 98-107 [facility] Basophils (Bld) [#/Vol] 7.5 10*3/uL 4.4-11.0 [facility] Chloride [Moles/Vol] 100 mmol/L 98-107 [facility] Glucose [Mass/Vol] 246 mg/dL 74-106 [facility] Comment on above: Glucose result great er than or equal to 200 mg/dLsuggests DIABETES MELLITUS per A.D.A. criteria. Potassium [Moles/Vol] 4.3 mmol/L 3.5-5.1 [facility] Sodium [Moles/Vol] 136 mmol/L 136-145 [facility] WBC (Bld) [#/Vol] 7.5 10*3/uL 4.4-11.0 [facility] Blood erythrocytes count (nu mber/volume)Ordered By: Ganesh Garcia on 09-11-2022 RBC (Bld) [#/Vol] 3.79 10*6/uL 4.2-5.4 [facility] Blood hemoglobin measurement (mass/volume)Ordered By: Ganesh Garcia on 09-11-2022 Hemoglobin (Bld) [Mass/Vol] 10.5 g/dL 12.0-15.0 [facility] Blood platelet mean volumeOr dered By: Ganesh Garcia on 09-11-2022 Platelet mean volume (Bld) [Entitic vol] 10.1 fL 6.2-12.0 [facility] Determination of erythrocyte mean corpuscular volume (MCV)Ordered By: Ganesh Garcia on 09-11-2022 MCV (RBC) [Entitic vol] 85.2 fL 81-99 [facility] Hematocrit Auto (Bld) [Volum e fraction]Ordered By: Ganesh Garcia on 09-11-2022 Hematocrit (Bld) [Volume fraction] 32.3 % 37-47 [facility] - Chemistry and C hemistry - challengeOrdered By: Ganesh Garcia on 09-11-2022 CO2 [Moles/Vol] 27.0 mmol/L 21.0-32.0 [facility] Natriuretic peptide B (Bld) [Mass/Vol] 18.5 pg/mL 0-100 [facility] Urea nitrogen/Creatinine [Mass ratio] 23.6 mg/mg 10-20 [facility] - Hematology and Cell countsOrdered By: Ganesh Garcia on 09-11-2022 Erythrocyte distribution width (RBC) [Entitic vol] 43.0 fL 35.1-43.9 [facility] Erythrocyte distribution width (RBC) [Ratio] 13.7 % 11.6-14.6 [facility] MCH (RBC) [Entitic mass] 27.7 pg 27.0-32.0 [facility] MCHC Auto (RBC) [Mass/Vol]Or dered By: Ganesh Garcia on 09-11-2022 MCHC (RBC) [Mass/Vol] 32.5 g/dL 32-36 [facility] No Panel InformationOrdered By: Ganesh Garcia on 09-11-2022 Estimated GFR (MDRD) Amer 65 mL/min >60 [facility] Comment on above: GFR Calc Estimated GFR (MDRD) Non-Af Amer 54 mL/min >60 [facility] Comment on above: Non- GFR Calc 27.7 pg 27.0-32.0 [facility] 13.7 % 11.6-14.6 [facility] 43.0 fl 35.1-43.9 [facility] 54 mL/min >60 [facility] 65 mL/min >60 [facility] 23.6 RATIO 10-20 [facility] 27.0 mmol/L 21.0-32.0 [facility] 18.5 pg/mL 0-100 [facility] Platelets bldOrdered By: Robert Garcia on 09-11-2022 Platelets (Bld) [#/Vol] 257 10*3/uL 150-450 [facility] Serum or plasma calcium tai urement (mass/volume)Ordered By: Ganesh Garcia on 09-11-2022 Calcium [Mass/Vol] 8.6 mg/dL 8.5-10.1 [facility] Serum or plasma creatinine m easurement (mass/volume)Ordered By: Ganesh Garcia on 09-11-2022 Creatinine [Mass/Vol] 1.10 mg/dL 0.55-1.02 [facility] Comment on above: The validity of the calculated GFR & GFRAA in patients over 70 years has not been determined. Clinical correlation is essential. Serum or plasma urea nitroge n measurement (mass/volume)Ordered By: Ganesh Garcia on 09-11-2022 Urea nitrogen [Mass/Vol] 26 mg/dL 7-18 [facility] Thin prep Papanicolaou smear with manual screeningOrdered By: Ganesh Garcia on 09-11-2022 Thin prep Papanicolaou smear with manual screening 9 5-15 [facility] Basophil percentageOrdered B y: Ganesh Garcia on 09-01-2022 Chloride [Moles/Vol] 101 mmol/L 98-107 [facility] Glucose [Mass/Vol] 255 mg/dL 74-106 [facility] Comment on above: Glucose result great er than or equal to 200 mg/dLsuggests DIABETES MELLITUS per A.D.A. criteria. Potassium [Moles/Vol] 4.1 mmol/L 3.5-5.1 [facility] Sodium [Moles/Vol] 135 mmol/L 136-145 [facility] WBC (Bld) [#/Vol] 7.0 10*3/uL 4.4-11.0 [facility] Blood erythrocytes count (nu mber/volume)Ordered By: Ganesh Garcia on 09-01-2022 RBC (Bld) [#/Vol] 3.93 10*6/uL 4.2-5.4 [facility] Blood hemoglobin measurement (mass/volume)Ordered By: Ganesh Garcia on 09-01-2022 Hemoglobin (Bld) [Mass/Vol] 10.9 g/dL 12.0-15.0 [facility] Blood platelet mean volumeOr dered By: Ganesh Garcia on 09-01-2022 Platelet mean volume (Bld) [Entitic vol] 9.9 fL 6.2-12.0 [facility] Determination of erythrocyte mean corpuscular volume (MCV)Ordered By: Ganesh Garcia on 09-01-2022 MCV (RBC) [Entitic vol] 84.7 fL 81-99 [facility] Hematocrit Auto (Bld) [Volum e fraction]Ordered By: Ganesh Garcia on 09-01-2022 Hematocrit (Bld) [Volume fraction] 33.3 % 37-47 [facility] - Chemistry and C hemistry - challengeOrdered By: Ganesh Garcia on 09-01-2022 CO2 [Moles/Vol] 27.0 mmol/L 21.0-32.0 [facility] Urea nitrogen/Creatinine [Mass ratio] 13.4 mg/mg 10-20 [facility] - Hematology and Cell countsOrdered By: Ganesh Garcia on 09-01-2022 Erythrocyte distribution width (RBC) [Entitic vol] 42.9 fL 35.1-43.9 [facility] Erythrocyte distribution width (RBC) [Ratio] 13.9 % 11.6-14.6 [facility] MCH (RBC) [Entitic mass] 27.7 pg 27.0-32.0 [facility] MCHC Auto (RBC) [Mass/Vol]Or dered By: Ganesh Garcia on 09-01-2022 MCHC (RBC) [Mass/Vol] 32.7 g/dL 32-36 [facility] No Panel InformationOrdered By: Ganesh Garcia on 09-01-2022 Estimated GFR (MDRD) Amer 60 mL/min >60 [facility] Comment on above: GFR Calc Estimated GFR (MDRD) Non-Af Amer 49 mL/min >60 [facility] Comment on above: Non- GFR Calc Platelets bldOrdered By: Robert Garcia on 09-01-2022 Platelets (Bld) [#/Vol] 328 10*3/uL 150-450 [facility] Serum or plasma calcium tai urement (mass/volume)Ordered By: Ganesh Garcia on 09-01-2022 Calcium [Mass/Vol] 9.1 mg/dL 8.5-10.1 [facility] Serum or plasma creatinine m easurement (mass/volume)Ordered By: Ganesh Garcia on 09-01-2022 Creatinine [Mass/Vol] 1.19 mg/dL 0.55-1.02 [facility] Comment on above: The validity of the calculated GFR & GFRAA in patients over 70 years has not been determined. Clinical correlation is essential. Serum or plasma urea nitroge n measurement (mass/volume)Ordered By: Ganesh Garcia on 09-01-2022 Urea nitrogen [Mass/Vol] 16 mg/dL 7-18 [facility] Thin prep Papanicolaou smear with manual screeningOrdered By: Ganesh Garcia on 09-01-2022 Thin prep Papanicolaou smear with manual screening 7 5-15 [facility] Absolute lymphocyte countOrd ered By: Dr. Govea on 08-24-2022 Lymphocytes Auto (Unsp spec) [#/Vol] 3.37 10*3/uL 0.83-4.51 [facility] Basophil percentageOrdered B y: Dr. Govea on 08-24-2022 Basophils/100 WBC (Bld) 0.6 % 0-1 [facility] Bilirubin [Mass/Vol] 0.40 mg/dL 0.20-1.00 [facility] Comment on above: For patients on eltr ombopag therapy, use of Dimension [facility] TBIL is not recommended. Chloride [Moles/Vol] 97 mmol/L 98-107 [facility] Eosinophils/100 WBC (Bld) 1.6 % 0-5 [facility] Glucose [Mass/Vol] 235 mg/dL 74-106 [facility] Comment on above: Glucose result great er than or equal to 200 mg/dLsuggests DIABETES MELLITUS per A.D.A. criteria. Neutrophils (Bld) [#/Vol] 4.6 10*3/uL 2.0-7.7 [facility] Neutrophils/100 WBC (Bld) 53.6 % 47-70 [facility] Potassium [Moles/Vol] 4.4 mmol/L 3.5-5.1 [facility] Protein [Mass/Vol] 7.0 g/dL 6.4-8.2 [facility] Sodium [Moles/Vol] 134 mmol/L 136-145 [facility] WBC (Bld) [#/Vol] 8.6 10*3/uL 4.4-11.0 [facility] Blood erythrocytes count (nu mber/volume)Ordered By: Dr. Govea on 08-24-2022 RBC (Bld) [#/Vol] 4.30 10*6/uL 4.2-5.4 [facility] Blood hemoglobin measurement (mass/volume)Ordered By: Dr. Govea on 08-24-2022 Hemoglobin (Bld) [Mass/Vol] 12.0 g/dL 12.0-15.0 [facility] Blood lymphocytes/100 leukoc ytesOrdered By: Dr. Govea on 08-24-2022 Lymphocytes/100 WBC (Bld) 39.0 % 19-41 [facility] Blood monocytes/100 leukocyt esOrdered By: Dr. Govea on 08-24-2022 Monocytes/100 WBC (Bld) 5.0 % 0-10 [facility] Blood platelet mean volumeOr dered By: Dr. Govea on 08-24-2022 Platelet mean volume (Bld) [Entitic vol] 9.5 fL 6.2-12.0 [facility] Determination of erythrocyte mean corpuscular volume (MCV)Ordered By: Dr. Govea on 08-24-2022 MCV (RBC) [Entitic vol] 83.5 fL 81-99 [facility] Direct bilirubinOrdered By: Dr. Govea on 08-24-2022 Bilirubin.direct [Mass/Vol] 0.13 mg/dL 0.00-0.30 [facility] Hematocrit Auto (Bld) [Volum e fraction]Ordered By: Dr. Govea on 08-24-2022 Hematocrit (Bld) [Volume fraction] 35.9 % 37-47 [facility] - Chemistry and C hemistry - challengeOrdered By: Dr. Govea on 08-24-2022 ALP [Catalytic activity/Vol] 61 U/L 45-117 [facility] ALT [Catalytic activity/Vol] 23 U/L 13-56 [facility] CO2 [Moles/Vol] 28.0 mmol/L 21.0-32.0 [facility] Globulin (S) [Mass/Vol] 4.1 g/dL 2.2-4.2 [facility] Lipase [Catalytic activity/Vol] 92 U/L 73-393 [facility] Urea nitrogen/Creatinine [Mass ratio] 16.8 mg/mg 10-20 [facility] - Hematology and Cell countsOrdered By: Dr. Govea on 08-24-2022 Erythrocyte distribution width (RBC) [Entitic vol] 42.8 fL 35.1-43.9 [facility] Erythrocyte distribution width (RBC) [Ratio] 14.2 % 11.6-14.6 [facility] Immature granulocytes/100 WBC (Bld) 0.200 % 0.0-0.9 [facility] Comment on above: IG% - Immature Granu locytes (promyelocytes, myelocytes and metamyelocytes) > 1% indicates that a LEFT SHIFT is Present. MCH (RBC) [Entitic mass] 27.9 pg 27.0-32.0 [facility] Nucleated RBC/100 WBC (Bld) [Ratio] 0 % 0-5 [facility] MCHC Auto (RBC) [Mass/Vol]Or dered By: Dr. Govea on 08-24-2022 MCHC (RBC) [Mass/Vol] 33.4 g/dL 32-36 [facility] No Panel InformationOrdered By: Dr. Govea on 08-24-2022 Troponin I High Sensitivity 10 pg/mL 3.0-54.0 [facility] Comment on above: Please Note: New Carolann t Units and Gender Specific Reference Ranges. For more information see Policy Stat Procedure [facility] High Sensitivity Troponin (TNIH) and attachments. D-Dimer Quantitative (PE/DVT) 0.67 FEU/ug/m 0.27-0.49 [facility] Comment on above: D-Dimer ELEVATED (>0 .49): Additional studies and clinicalassessments are indicated to conclude diagnosis of:Deep Vein Thrombosis (DVT) or Pulmonary Embolism (PE)CRITICAL VALUE VERIFIED. CALLED TO PAT CANTU08/24/22 [id number] Maurice Cast.RESULTS READ BACK BY SAME . Estimated Creatinine Clearance Calc 30.43 ml/min [facility] Estimated GFR (MDRD) Amer 48 mL/min >60 [facility] Comment on above: GFR Calc Estimated GFR (MDRD) Non-Af Amer 40 mL/min >60 [facility] Comment on above: Non- GFR Calc Platelets bldOrdered By: Dr. Govea on 08-24-2022 Platelets (Bld) [#/Vol] 344 10*3/uL 150-450 [facility] Serum or plasma albumin tai urement (mass/volume)Ordered By: Dr. oGvea on 08-24-2022 Albumin [Mass/Vol] 2.9 g/dL 3.2-5.0 [facility] Serum or plasma calcium tai urement (mass/volume)Ordered By: Dr. Govea on 08-24-2022 Calcium [Mass/Vol] 8.8 mg/dL 8.5-10.1 [facility] Serum or plasma creatinine m easurement (mass/volume)Ordered By: Dr. Govea on 08-24-2022 Creatinine [Mass/Vol] 1.43 mg/dL 0.55-1.02 [facility] Comment on above: The validity of the calculated GFR & GFRAA in patients over 70 years has not been determined. Clinical correlation is essential. Serum or plasma urea nitroge n measurement (mass/volume)Ordered By: Dr. Govea on 08-24-2022 Urea nitrogen [Mass/Vol] 24 mg/dL 7-18 [facility] Thin prep Papanicolaou smear with manual screeningOrdered By: Dr. Govea on 08-24-2022 Thin prep Papanicolaou smear with manual screening 22 U/L 15-37 [facility] Thin prep Papanicolaou smear with manual screening 9 5-15 [facility] Basophil percentageOrdered B y: Ganesh Garcia on 08-18-2022 Chloride [Moles/Vol] 103 mmol/L 98-107 [facility] Glucose [Mass/Vol] 158 mg/dL 74-106 [facility] Comment on above: Fasting Glucose resu lt greater than or equal to 126 mg/dL suggests DIABETES MELLITUS per A.D.A. criteria. Potassium [Moles/Vol] 4.2 mmol/L 3.5-5.1 [facility] Sodium [Moles/Vol] 137 mmol/L 136-145 [facility] WBC (Bld) [#/Vol] 7.1 10*3/uL 4.4-11.0 [facility] Blood erythrocytes count (nu mber/volume)Ordered By: Ganesh Garcia on 08-18-2022 RBC (Bld) [#/Vol] 3.85 10*6/uL 4.2-5.4 [facility] Blood hemoglobin measurement (mass/volume)Ordered By: Ganesh Garcia on 08-18-2022 Hemoglobin (Bld) [Mass/Vol] 11.0 g/dL 12.0-15.0 [facility] Blood platelet mean volumeOr dered By: Ganesh Garcia on 08-18-2022 Platelet mean volume (Bld) [Entitic vol] 9.6 fL 6.2-12.0 [facility] Determination of erythrocyte mean corpuscular volume (MCV)Ordered By: Ganesh Garcia on 08-18-2022 MCV (RBC) [Entitic vol] 87.3 fL 81-99 [facility] Hematocrit Auto (Bld) [Volum e fraction]Ordered By: Ganesh Garcia on 08-18-2022 Hematocrit (Bld) [Volume fraction] 33.6 % 37-47 [facility] Laboratory - Chemistry and C hemistry - challengeOrdered By: Ganesh Garcia on 08-18-2022 CO2 [Moles/Vol] 29.0 mmol/L 21.0-32.0 [facility] Urea nitrogen/Creatinine [Mass ratio] 21.4 mg/mg 10-20 [facility] Laboratory - Hematology and Cell countsOrdered By: Ganesh Garcia on 08-18-2022 Erythrocyte distribution width (RBC) [Entitic vol] 45.0 fL 35.1-43.9 [facility] Erythrocyte distribution width (RBC) [Ratio] 14.1 % 11.6-14.6 [facility] MCH (RBC) [Entitic mass] 28.6 pg 27.0-32.0 [facility] MCHC Auto (RBC) [Mass/Vol]Or dered By: Ganesh Garcia on 08-18-2022 MCHC (RBC) [Mass/Vol] 32.7 g/dL 32-36 [facility] No Panel InformationOrdered By: Ganesh Garcia on 08-18-2022 Estimated GFR (MDRD) Amer 64 mL/min >60 [facility] Comment on above: GFR Calc Estimated GFR (MDRD) Non-Af Amer 53 mL/min >60 [facility] Comment on above: Non- GFR Calc Platelets bldOrdered By: Robert Garcia on 08-18-2022 Platelets (Bld) [#/Vol] 310 10*3/uL 150-450 [facility] Serum or plasma calcium tai urement (mass/volume)Ordered By: Ganesh Garcia on 08-18-2022 Calcium [Mass/Vol] 9.3 mg/dL 8.5-10.1 [facility] Serum or plasma creatinine m easurement (mass/volume)Ordered By: Ganesh Garcia on 08-18-2022 Creatinine [Mass/Vol] 1.12 mg/dL 0.55-1.02 [facility] Comment on above: The validity of the calculated GFR & GFRAA in patients over 70 years has not been determined. Clinical correlation is essential. Serum or plasma urea nitroge n measurement (mass/volume)Ordered By: Ganesh Garcia on 08-18-2022 Urea nitrogen [Mass/Vol] 24 mg/dL 7-18 [facility] Thin prep Papanicolaou smear with manual screeningOrdered By: Ganesh Garcia on 08-18-2022 Thin prep Papanicolaou smear with manual screening 5 5-15 [facility] Basophil percentageOrdered B y: Ganesh Garcia on 08-04-2022 Chloride [Moles/Vol] 102 mmol/L 98-107 [facility] Glucose [Mass/Vol] 215 mg/dL 74-106 [facility] Comment on above: Glucose result great er than or equal to 200 mg/dLsuggests DIABETES MELLITUS per A.D.A. criteria. Potassium [Moles/Vol] 4.1 mmol/L 3.5-5.1 [facility] Sodium [Moles/Vol] 137 mmol/L 136-145 [facility] WBC (Bld) [#/Vol] 6.8 10*3/uL 4.4-11.0 [facility] Blood erythrocytes count (nu mber/volume)Ordered By: Ganesh Garcia on 08-04-2022 RBC (Bld) [#/Vol] 3.88 10*6/uL 4.2-5.4 [facility] Blood hemoglobin measurement (mass/volume)Ordered By: Ganesh Garcia on 08-04-2022 Hemoglobin (Bld) [Mass/Vol] 10.8 g/dL 12.0-15.0 [facility] Blood platelet mean volumeOr dered By: Ganesh Garcia on 08-04-2022 Platelet mean volume (Bld) [Entitic vol] 9.9 fL 6.2-12.0 [facility] Determination of erythrocyte mean corpuscular volume (MCV)Ordered By: Ganesh Garcia on 08-04-2022 MCV (RBC) [Entitic vol] 87.9 fL 81-99 [facility] Hematocrit Auto (Bld) [Volum e fraction]Ordered By: Ganesh Garcia on 08-04-2022 Hematocrit (Bld) [Volume fraction] 34.1 % 37-47 [facility] Laboratory - Chemistry and C hemistry - challengeOrdered By: Ganesh Garcia on 08-04-2022 CO2 [Moles/Vol] 28.0 mmol/L 21.0-32.0 [facility] Urea nitrogen/Creatinine [Mass ratio] 19.1 mg/mg 10-20 [facility] Laboratory - Hematology and Cell countsOrdered By: Ganesh Garcia on 08-04-2022 Erythrocyte distribution width (RBC) [Entitic vol] 44.9 fL 35.1-43.9 [facility] Erythrocyte distribution width (RBC) [Ratio] 14.1 % 11.6-14.6 [facility] MCH (RBC) [Entitic mass] 27.8 pg 27.0-32.0 [facility] MCHC Auto (RBC) [Mass/Vol]Or dered By: Ganesh Garcia on 08-04-2022 MCHC (RBC) [Mass/Vol] 31.7 g/dL 32-36 [facility] No Panel InformationOrdered By: Ganesh Garcia on 08-04-2022 Estimated GFR (MDRD) Amer 74 mL/min >60 [facility] Comment on above: GFR Calc Estimated GFR (MDRD) Non-Af Amer 61 mL/min >60 [facility] Comment on above: Non- GFR Calc Platelets bldOrdered By: Robert Garcia on 08-04-2022 Platelets (Bld) [#/Vol] 319 10*3/uL 150-450 [facility] Serum or plasma calcium tai urement (mass/volume)Ordered By: Ganesh Garcia on 08-04-2022 Calcium [Mass/Vol] 8.9 mg/dL 8.5-10.1 [facility] Serum or plasma creatinine m easurement (mass/volume)Ordered By: Ganesh Garcia on 08-04-2022 Creatinine [Mass/Vol] 0.99 mg/dL 0.55-1.02 [facility] Comment on above: The validity of the calculated GFR & GFRAA in patients over 70 years has not been determined. Clinical correlation is essential. Serum or plasma urea nitroge n measurement (mass/volume)Ordered By: Ganesh Garcia on 08-04-2022 Urea nitrogen [Mass/Vol] 19 mg/dL 7-18 [facility] Thin prep Papanicolaou smear with manual screeningOrdered By: Ganesh Garcia on 08-04-2022 Thin prep Papanicolaou smear with manual screening 7 5-15 [facility] Basophil percentageon 2021 Chloride [Moles/Vol] 100 mmol/L 98-107 [facility] Work Phone: Cholesterol [Mass/Vol] 96 mg/dL <200 [facility] Work Phone: Comment on above: <200 mg/dL Desirable 200-240 mg/dL Borderline >240 mg/dL High Risk Glucose [Mass/Vol] 263 mg/dL 74-106 [facility] Work Phone: Comment on above: Glucose result great er than or equal to 200 mg/dLsuggests DIABETES MELLITUS per A.D.A. criteria. Potassium [Moles/Vol] 4.3 mmol/L 3.5-5.1 [facility] Work Phone: Sodium [Moles/Vol] 136 mmol/L 136-145 [facility] Work Phone: Triglyceride [Mass/Vol] 361 mg/dL <199 [facility] Work Phone: Comment on above: The drugs N-Acetylcy steine and Metamizole may falsely depress this assay.Serum Triglycerides Reference Interval Normal <150 mg/dL Borderline high 150 - 199 mg/dL High 200 - 499 mg/dL Very High > or = 500 mg/dL WBC (Bld) [#/Vol] 7.6 10*3/uL 4.4-11.0 [facility] Work Phone: Blood erythrocytes count (nu mber/volume)on 07-20-2022 RBC (Bld) [#/Vol] 3.77 10*6/uL 4.2-5.4 [facility] Work Phone: Blood hemoglobin measurement (mass/volume)on 07-20-2022 Hemoglobin (Bld) [Mass/Vol] 10.6 g/dL 12.0-15.0 [facility] Work Phone: Blood platelet mean volumeon 07-20-2022 Platelet mean volume (Bld) [Entitic vol] 10.0 fL 6.2-12.0 [facility] Work Phone: Determination of erythrocyte mean corpuscular volume (MCV)on 07-20-2022 MCV (RBC) [Entitic vol] 91.0 fL 81-99 [facility] Work Phone: Hematocrit Auto (Bld) [Volum e fraction]on 07-20-2022 Hematocrit (Bld) [Volume fraction] 34.3 % 37-47 [facility] Work Phone: Laboratory - Chemistry and C hemistry - challengeon 07-20-2022 CO2 [Moles/Vol] 27.0 mmol/L 21.0-32.0 [facility] Work Phone: Urea nitrogen/Creatinine [Mass ratio] 18.3 mg/mg 10-20 [facility] Work Phone: Laboratory - Hematology and Cell countson 07-20-2022 Erythrocyte distribution width (RBC) [Entitic vol] 44.6 fL 35.1-43.9 [facility] Work Phone: Erythrocyte distribution width (RBC) [Ratio] 13.5 % 11.6-14.6 [facility] Work Phone: MCH (RBC) [Entitic mass] 28.1 pg 27.0-32.0 [facility] Work Phone: MCHC Auto (RBC) [Mass/Vol]on 07-20-2022 MCHC (RBC) [Mass/Vol] 30.9 g/dL 32-36 [facility]: No Panel Informationon 07-20 Estimated GFR (MDRD) Amer 70 mL/min >60 [facility] Work Phone: Comment on above: GFR Calc Estimated GFR (MDRD) Non-Af Amer 58 mL/min >60 [facility] Work Phone: Comment on above: Non- GFR Calc Platelets bldon 07-20-2022 Platelets (Bld) [#/Vol] 274 10*3/uL 150-450 [facility] Work Phone: Serum or plasma calcium tai urement (mass/volume)on 07-20-2022 Calcium [Mass/Vol] 8.7 mg/dL 8.5-10.1 [facility] Work Phone: Serum or plasma cholesterol in HDL measurement (mass/volume)on 07-20-2022 Cholesterol in HDL [Mass/Vol] 17 mg/dL >40 [facility] Work Phone: Comment on above: The drugs N-Acetylcy steine and Metamizole may falsely depress this assay. Reference Range HDL <40 mg/dL Low HDL Cholesterol HDL >or= 60 mg/dL High HDL Cholesterol Serum or plasma cholesterol in VLDL measurement (mass/volume)on 07-20-2022 Cholesterol in VLDL [Mass/Vol] 72 mg/dL 5-40 [facility] Work Phone: Serum or plasma creatinine m easurement (mass/volume)on 07-20-2022 Creatinine [Mass/Vol] 1.04 mg/dL 0.55-1.02 [facility] Work Phone: Comment on above: The validity of the calculated GFR & GFRAA in patients over 70 years has not been determined. Clinical correlation is essential. Serum or plasma low density lipoprotein (LDL) cholesterol measurement (mass/volume)on 07-20-2022 Cholesterol in LDL [Mass/Vol] 7 mg/dL 0-130 [facility] Work Phone: Serum or plasma urea nitroge n measurement (mass/volume)on 07-20-2022 Urea nitrogen [Mass/Vol] 19 mg/dL 7-18 [facility] Work Phone: Thin prep Papanicolaou smear with manual screeningon 07-20-2022 Thin prep Papanicolaou smear with manual screening 9 5-15 [facility] Work Phone: Basophil percentageon 2021 Basophil percentage 25-50 SEEN /hpf 0-5 [facility] Work Phone: Bilirubin Test strip Ql (U)o n 07-13-2022 Bilirubin Ql (U) Negative Negative [facility] Work Phone: Ketones Test strip Ql (U)on 07-13-2022 Ketones Ql (U) Negative Negative [facility] Work Phone: Mucus LM Ql (Urine sed)on Mucus Ql (Urine sed) 0 SEEN /hpf [facility] Work Phone: Nitrite Test strip Ql (U)on 07-13-2022 Nitrite Ql (U) Negative Negative [facility] Work Phone: Protein Test strip Ql (U)on 07-13-2022 Protein Ql (U) Negative Negative [facility] Work Phone: Squamous epithelial cells de tection in urine sediment by light microscopyon 07-13-2022 Epithelial cells.squamous LM Ql (Urine sed) 0-5 SEEN /hpf 5-10 [facility] Work Phone: Urine blood detectionon 06-25 RBC Ql (U) 10 /ul Negative [facility] Work Phone: RBC Ql (U) 0-5 SEEN /hpf 0-5 [facility] Work Phone: Urine clarityon 07-13-2022 Clarity (U) Sl. Cloudy Clear [facility] Work Phone: Urine color determinationon 07-13-2022 Color (U) Yellow Yellow [facility] Work Phone: Urine glucose detectionon Glucose Ql (U) 50 mg/dl Normal [facility] Work Phone: Urine leukocyte esterase det ection by dipstickon 07-13-2022 Leukocyte esterase Test strip Ql (U) 500 /ul Negative [facility] Work Phone: Urine pHon 07-13-2022 pH (U) 6.0 [pH] 5.0 - 8.0 [facility] Work Phone: Urine sediment bacteria coun t by microscopy (number/high power field)on 07-13-2022 Bacteria LM.HPF (Urine sed) [#/Area] 2 /[HPF] None Seen [facility] Work Phone: Urine specific gravity measu rementon 07-13-2022 Specific gravity (U) [Rel density] 1.010 1.002-1.03 0 [facility] Work Phone: Urobilinogen Auto test strip Ql (U)on 07-13-2022 Urobilinogen Ql (U) Normal mg/dl Normal [facility] Work Phone: Basophil percentageon 2021 Chloride [Moles/Vol] 101 mmol/L 98-107 [facility] Work Phone: Glucose [Mass/Vol] 240 mg/dL 74-106 [facility] Work Phone: Comment on above: Glucose result great er than or equal to 200 mg/dLsuggests DIABETES MELLITUS per A.D.A. criteria. Potassium [Moles/Vol] 3.9 mmol/L 3.5-5.1 [facility] Work Phone: Sodium [Moles/Vol] 136 mmol/L 136-145 [facility] Work Phone: WBC (Bld) [#/Vol] 7.8 10*3/uL 4.4-11.0 [facility] Work Phone: Blood erythrocytes count (nu mber/volume)on 07-07-2022 RBC (Bld) [#/Vol] 3.88 10*6/uL 4.2-5.4 [facility] Work Phone: Blood hemoglobin measurement (mass/volume)on 07-07-2022 Hemoglobin (Bld) [Mass/Vol] 11.1 g/dL 12.0-15.0 [facility] Work Phone: Blood platelet mean volumeon 07-07-2022 Platelet mean volume (Bld) [Entitic vol] 9.9 fL 6.2-12.0 [facility] Work Phone: Determination of erythrocyte mean corpuscular volume (MCV)on 07-07-2022 MCV (RBC) [Entitic vol] 89.4 fL 81-99 [facility] Work Phone: Hematocrit Auto (Bld) [Volum e fraction]on 07-07-2022 Hematocrit (Bld) [Volume fraction] 34.7 % 37-47 [facility] Work Phone: Laboratory - Chemistry and C hemistry - challengeon 07-07-2022 CO2 [Moles/Vol] 26.0 mmol/L 21.0-32.0 [facility] Work Phone: Urea nitrogen/Creatinine [Mass ratio] 18.7 mg/mg 10-20 [facility] Work Phone: Laboratory - Hematology and Cell countson 07-07-2022 Erythrocyte distribution width (RBC) [Entitic vol] 44.2 fL 35.1-43.9 [facility] Work Phone: Erythrocyte distribution width (RBC) [Ratio] 13.5 % 11.6-14.6 [facility] Work Phone: MCH (RBC) [Entitic mass] 28.6 pg 27.0-32.0 [facility] Work Phone: MCHC Auto (RBC) [Mass/Vol]on 07-07-2022 MCHC (RBC) [Mass/Vol] 32.0 g/dL 32-36 [facility] Work Phone: No Panel Informationon 07-07 Estimated GFR (MDRD) Amer 68 mL/min >60 [facility] Work Phone: Comment on above: GFR Calc Estimated GFR (MDRD) Non-Af Amer 56 mL/min >60 [facility] Work Phone: Comment on above: Non- GFR Calc Platelets bldon 07-07-2022 Platelets (Bld) [#/Vol] 310 10*3/uL 150-450 [facility] Work Phone: Serum or plasma calcium tai urement (mass/volume)on 07-07-2022 Calcium [Mass/Vol] 9.0 mg/dL 8.5-10.1 [facility] Work Phone: Serum or plasma creatinine m easurement (mass/volume)on 07-07-2022 Creatinine [Mass/Vol] 1.07 mg/dL 0.55-1.02 [facility] Work Phone: Comment on above: The validity of the calculated GFR & GFRAA in patients over 70 years has not been determined. Clinical correlation is essential. Serum or plasma urea nitroge n measurement (mass/volume)on 07-07-2022 Urea nitrogen [Mass/Vol] 20 mg/dL 7-18 [facility] Work Phone: Thin prep Papanicolaou smear with manual screeningon 07-07-2022 Thin prep Papanicolaou smear with manual screening 9 5-15 [facility] Work Phone: No Panel Informationon 07-03 Thyroid Stimulating Hormone (TSH) 1.98 uIU/mL 0.358-3.74 [facility] Work Phone: No Panel Informationon 07-01 Thyroid Stimulating Hormone (TSH) 1.82 uIU/mL 0.358-3.74 [facility] Work Phone: Whole blood hemoglobin A1c/t otal hemoglobin ratio (mass fraction)on 07-01-2022 HbA1c (Bld) [Mass fraction] 7.8 % 3.8-5.6 [facility] Work Phone: Comment on above: Normal < 5.7 % Predi abetic 5.7 - 6.4 % Diabetic >or= 6.5 % Please note range changes. Basophil percentageon 2021 Chloride [Moles/Vol] 99 mmol/L 98-107 [facility] Work Phone: Glucose [Mass/Vol] 193 mg/dL 74-106 [facility] Work Phone: Comment on above: Fasting Glucose resu lt greater than or equal to 126 mg/dL suggests DIABETES MELLITUS per A.D.A. criteria. Potassium [Moles/Vol] 4.1 mmol/L 3.5-5.1 [facility] Work Phone: Sodium [Moles/Vol] 137 mmol/L 136-145 [facility] Work Phone: WBC (Bld) [#/Vol] 7.4 10*3/uL 4.4-11.0 [facility] Work Phone: Blood erythrocytes count (nu mber/volume)on 06-23-2022 RBC (Bld) [#/Vol] 3.60 10*6/uL 4.2-5.4 [facility] Work Phone: Blood hemoglobin measurement (mass/volume)on 06-23-2022 Hemoglobin (Bld) [Mass/Vol] 10.6 g/dL 12.0-15.0 [facility] Work Phone: Blood platelet mean volumeon 06-23-2022 Platelet mean volume (Bld) [Entitic vol] 9.5 fL 6.2-12.0 [facility] Work Phone: Determination of erythrocyte mean corpuscular volume (MCV)on 06-23-2022 MCV (RBC) [Entitic vol] 89.7 fL 81-99 [facility] Work Phone: Hematocrit Auto (Bld) [Volum e fraction]on 06-23-2022 Hematocrit (Bld) [Volume fraction] 32.3 % 37-47 [facility] Work Phone: Laboratory - Chemistry and C hemistry - challengeon 06-23-2022 CO2 [Moles/Vol] 28.0 mmol/L 21.0-32.0 [facility] Work Phone: Urea nitrogen/Creatinine [Mass ratio] 19.3 mg/mg 10-20 [facility] Work Phone: Laboratory - Hematology and Cell countson 06-23-2022 Erythrocyte distribution width (RBC) [Entitic vol] 43.2 fL 35.1-43.9 [facility] Work Phone: Erythrocyte distribution width (RBC) [Ratio] 13.2 % 11.6-14.6 [facility] Work Phone: MCH (RBC) [Entitic mass] 29.4 pg 27.0-32.0 [facility] Work Phone: MCHC Auto (RBC) [Mass/Vol]on 06-23-2022 MCHC (RBC) [Mass/Vol] 32.8 g/dL 32-36 [facility] Work Phone: No Panel Informationon 06-23 Estimated GFR (MDRD) Amer 63 mL/min >60 [facility] Work Phone: Comment on above: GFR Calc Estimated GFR (MDRD) Non-Af Amer 52 mL/min >60 [facility] Work Phone: Comment on above: Non- GFR Calc Platelets bldon 06-23-2022 Platelets (Bld) [#/Vol] 348 10*3/uL 150-450 [facility] Work Phone: Serum or plasma calcium tai urement (mass/volume)on 06-23-2022 Calcium [Mass/Vol] 8.8 mg/dL 8.5-10.1 [facility] Work Phone: Serum or plasma creatinine m easurement (mass/volume)on 06-23-2022 Creatinine [Mass/Vol] 1.14 mg/dL 0.55-1.02 [facility] Work Phone: Comment on above: The validity of the calculated GFR & GFRAA in patients over 70 years has not been determined. Clinical correlation is essential. Serum or plasma urea nitroge n measurement (mass/volume)on 06-23-2022 Urea nitrogen [Mass/Vol] 22 mg/dL 7-18 [facility] Work Phone: Thin prep Papanicolaou smear with manual screeningon 06-23-2022 Thin prep Papanicolaou smear with manual screening 10 5-15 [facility] Work Phone: Absolute lymphocyte counton 06-12-2022 Lymphocytes Auto (Unsp spec) [#/Vol] 2.71 10*3/uL 0.83-4.51 [facility] Work Phone: Basophil percentageon 2021 Basophils/100 WBC (Bld) 0.7 % 0-1 [facility] Work Phone: Chloride [Moles/Vol] 99 mmol/L 98-107 [facility] Work Phone: Eosinophils/100 WBC (Bld) 1.9 % 0-5 [facility] Work Phone: Glucose [Mass/Vol] 244 mg/dL 74-106 [facility] Work Phone: Comment on above: Glucose result great er than or equal to 200 mg/dLsuggests DIABETES MELLITUS per A.D.A. criteria. Neutrophils (Bld) [#/Vol] 4.0 10*3/uL 2.0-7.7 [facility] Work Phone: Neutrophils/100 WBC (Bld) 53.9 % 47-70 [facility] Work Phone: Potassium [Moles/Vol] 4.1 mmol/L 3.5-5.1 [facility] Work Phone: Sodium [Moles/Vol] 135 mmol/L 136-145 [facility] Work Phone: WBC (Bld) [#/Vol] 7.5 10*3/uL 4.4-11.0 [facility] Work Phone: Blood erythrocytes count (nu mber/volume)on 06-12-2022 RBC (Bld) [#/Vol] 4.04 10*6/uL 4.2-5.4 [facility] Work Phone: Blood hemoglobin measurement (mass/volume)on 06-12-2022 Hemoglobin (Bld) [Mass/Vol] 11.9 g/dL 12.0-15.0 [facility] Work Phone: Blood lymphocytes/100 leukoc yteson 06-12-2022 Lymphocytes/100 WBC (Bld) 36.3 % 19-41 [facility] Work Phone: Blood monocytes/100 leukocyt eson 06-12-2022 Monocytes/100 WBC (Bld) 6.7 % 0-10 [facility] Work Phone: Blood platelet mean volumeon 06-12-2022 Platelet mean volume (Bld) [Entitic vol] 9.6 fL 6.2-12.0 [facility] Work Phone: Determination of erythrocyte mean corpuscular volume (MCV)on 06-12-2022 MCV (RBC) [Entitic vol] 90.8 fL 81-99 [facility] Work Phone: Hematocrit Auto (Bld) [Volum e fraction]on 06-12-2022 Hematocrit (Bld) [Volume fraction] 36.7 % 37-47 [facility] Work Phone: Laboratory - Chemistry and C hemistry - challengeon 06-12-2022 CO2 [Moles/Vol] 28.0 mmol/L 21.0-32.0 [facility] Work Phone: Natriuretic peptide B (Bld) [Mass/Vol] 9.7 pg/mL 0-100 [facility] Work Phone: Urea nitrogen/Creatinine [Mass ratio] 20.9 mg/mg 10-20 [facility] Work Phone: Laboratory - Hematology and Cell countson 06-12-2022 Erythrocyte distribution width (RBC) [Entitic vol] 45.7 fL 35.1-43.9 [facility] Work Phone: Erythrocyte distribution width (RBC) [Ratio] 13.8 % 11.6-14.6 [facility] Work Phone: Immature granulocytes/100 WBC (Bld) 0.500 % 0.0-0.9 [facility] Work Phone: Comment on above: IG% - Immature Granu locytes (promyelocytes, myelocytes and metamyelocytes) > 1% indicates that a LEFT SHIFT is Present. MCH (RBC) [Entitic mass] 29.5 pg 27.0-32.0 [facility] Work Phone: Nucleated RBC/100 WBC (Bld) [Ratio] 0 % 0-5 [facility] Work Phone: MCHC Auto (RBC) [Mass/Vol]on 06-12-2022 MCHC (RBC) [Mass/Vol] 32.4 g/dL 32-36 [facility] Work Phone: No Panel Informationon 06-12 Estimated GFR (MDRD) Amer 65 mL/min >60 [facility] Work Phone: Comment on above: GFR Calc Estimated GFR (MDRD) Non-Af Amer 54 mL/min >60 [facility] Work Phone: Comment on above: Non- GFR Calc Platelets bldon 06-12-2022 Platelets (Bld) [#/Vol] 323 10*3/uL 150-450 [facility] Work Phone: Serum or plasma calcium tai urement (mass/volume)on 06-12-2022 Calcium [Mass/Vol] 8.7 mg/dL 8.5-10.1 [facility] Work Phone: Serum or plasma creatinine m easurement (mass/volume)on 06-12-2022 Creatinine [Mass/Vol] 1.10 mg/dL 0.55-1.02 [facility] Work Phone: Comment on above: The validity of the calculated GFR & GFRAA in patients over 70 years has not been determined. Clinical correlation is essential. Serum or plasma urea nitroge n measurement (mass/volume)on 06-12-2022 Urea nitrogen [Mass/Vol] 23 mg/dL 7-18 [facility] Work Phone: Thin prep Papanicolaou smear with manual screeningon 06-12-2022 Thin prep Papanicolaou smear with manual screening 8 5-15 [facility] Work Phone: Basophil percentageon 2021 Chloride [Moles/Vol] 103 mmol/L 98-107 [facility] Work Phone: Glucose [Mass/Vol] 255 mg/dL 74-106 [facility] Work Phone: Comment on above: Glucose result great er than or equal to 200 mg/dLsuggests DIABETES MELLITUS per A.D.A. criteria. Potassium [Moles/Vol] 3.7 mmol/L 3.5-5.1 [facility] Work Phone: Sodium [Moles/Vol] 138 mmol/L 136-145 [facility] Work Phone: WBC (Bld) [#/Vol] 6.8 10*3/uL 4.4-11.0 [facility] Work Phone: Blood erythrocytes count (nu mber/volume)on 06-09-2022 RBC (Bld) [#/Vol] 3.50 10*6/uL 4.2-5.4 [facility] Work Phone: Blood hemoglobin measurement (mass/volume)on 06-09-2022 Hemoglobin (Bld) [Mass/Vol] 10.5 g/dL 12.0-15.0 [facility] Work Phone: Blood platelet mean volumeon 06-09-2022 Platelet mean volume (Bld) [Entitic vol] 9.7 fL 6.2-12.0 [facility] Work Phone: Determination of erythrocyte mean corpuscular volume (MCV)on 06-09-2022 MCV (RBC) [Entitic vol] 93.1 fL 81-99 [facility] Work Phone: Hematocrit Auto (Bld) [Volum e fraction]on 06-09-2022 Hematocrit (Bld) [Volume fraction] 32.6 % 37-47 [facility] Work Phone: Laboratory - Chemistry and C hemistry - challengeon 06-09-2022 CO2 [Moles/Vol] 27.0 mmol/L 21.0-32.0 [facility] Work Phone: Urea nitrogen/Creatinine [Mass ratio] 16.8 mg/mg 10-20 [facility] Work Phone: Laboratory - Hematology and Cell countson 06-09-2022 Erythrocyte distribution width (RBC) [Entitic vol] 47.2 fL 35.1-43.9 [facility] Work Phone: Erythrocyte distribution width (RBC) [Ratio] 13.8 % 11.6-14.6 [facility] Work Phone: MCH (RBC) [Entitic mass] 30.0 pg 27.0-32.0 [facility] Work Phone: MCHC Auto (RBC) [Mass/Vol]on 06-09-2022 MCHC (RBC) [Mass/Vol] 32.2 g/dL 32-36 [facility] Work Phone: No Panel Informationon 06-09 Estimated GFR (MDRD) Amer 68 mL/min >60 [facility] Work Phone: Comment on above: GFR Calc Estimated GFR (MDRD) Non-Af Amer 56 mL/min >60 [facility] Work Phone: Comment on above: Non- GFR Calc Platelets bldon 06-09-2022 Platelets (Bld) [#/Vol] 229 10*3/uL 150-450 [facility] Work Phone: Serum or plasma calcium tai urement (mass/volume)on 06-09-2022 Calcium [Mass/Vol] 8.6 mg/dL 8.5-10.1 [facility] Work Phone: Serum or plasma creatinine m easurement (mass/volume)on 06-09-2022 Creatinine [Mass/Vol] 1.07 mg/dL 0.55-1.02 [facility] Work Phone: Comment on above: The validity of the calculated GFR & GFRAA in patients over 70 years has not been determined. Clinical correlation is essential. Serum or plasma urea nitroge n measurement (mass/volume)on 06-09-2022 Urea nitrogen [Mass/Vol] 18 mg/dL 7-18 [facility] Work Phone: Thin prep Papanicolaou smear with manual screeningon 06-09-2022 Thin prep Papanicolaou smear with manual screening 8 5-15 [facility] Work Phone: Basophil percentageon 2021 Chloride [Moles/Vol] 101 mmol/L 98-107 [facility] Work Phone: Glucose [Mass/Vol] 261 mg/dL 74-106 [facility] Work Phone: Comment on above: Glucose result great er than or equal to 200 mg/dLsuggests DIABETES MELLITUS per A.D.A. criteria. Potassium [Moles/Vol] 4.0 mmol/L 3.5-5.1 [facility] Work Phone: Sodium [Moles/Vol] 134 mmol/L 136-145 [facility] Work Phone: WBC (Bld) [#/Vol] 6.3 10*3/uL 4.4-11.0 [facility] Work Phone: Blood erythrocytes count (nu mber/volume)on 05-26-2022 RBC (Bld) [#/Vol] 3.47 10*6/uL 4.2-5.4 [facility] Work Phone: Blood hemoglobin measurement (mass/volume)on 05-26-2022 Hemoglobin (Bld) [Mass/Vol] 10.6 g/dL 12.0-15.0 [facility] Work Phone: Blood platelet mean volumeon 05-26-2022 Platelet mean volume (Bld) [Entitic vol] 9.6 fL 6.2-12.0 [facility] Work Phone: Determination of erythrocyte mean corpuscular volume (MCV)on 05-26-2022 MCV (RBC) [Entitic vol] 92.2 fL 81-99 [facility] Work Phone: Hematocrit Auto (Bld) [Volum e fraction]on 05-26-2022 Hematocrit (Bld) [Volume fraction] 32.0 % 37-47 [facility] Work Phone: Laboratory - Chemistry and C hemistry - challengeon 05-26-2022 CO2 [Moles/Vol] 29.0 mmol/L 21.0-32.0 [facility] Work Phone: Urea nitrogen/Creatinine [Mass ratio] 15.7 mg/mg 10-20 [facility] Work Phone: Laboratory - Hematology and Cell countson 05-26-2022 Erythrocyte distribution width (RBC) [Entitic vol] 48.0 fL 35.1-43.9 [facility] Work Phone: Erythrocyte distribution width (RBC) [Ratio] 14.3 % 11.6-14.6 [facility] Work Phone: MCH (RBC) [Entitic mass] 30.5 pg 27.0-32.0 [facility] Work Phone: MCHC Auto (RBC) [Mass/Vol]on 05-26-2022 MCHC (RBC) [Mass/Vol] 33.1 g/dL 32-36 [facility] Work Phone: No Panel Informationon 05-26 Estimated GFR (MDRD) Amer 55 mL/min >60 [facility] Work Phone: Comment on above: GFR Calc Estimated GFR (MDRD) Non-Af Amer 46 mL/min >60 [facility] Work Phone: Comment on above: Non- GFR Calc Platelets bldon 05-26-2022 Platelets (Bld) [#/Vol] 267 10*3/uL 150-450 [facility] Work Phone: Serum or plasma calcium tai urement (mass/volume)on 05-26-2022 Calcium [Mass/Vol] 8.9 mg/dL 8.5-10.1 [facility] Work Phone: Serum or plasma creatinine m easurement (mass/volume)on 05-26-2022 Creatinine [Mass/Vol] 1.27 mg/dL 0.55-1.02 [facility] Work Phone: Comment on above: The validity of the calculated GFR & GFRAA in patients over 70 years has not been determined. Clinical correlation is essential. Serum or plasma urea nitroge n measurement (mass/volume)on 05-26-2022 Urea nitrogen [Mass/Vol] 20 mg/dL 7-18 [facility] Work Phone: Thin prep Papanicolaou smear with manual screeningon 05-26-2022 Thin prep Papanicolaou smear with manual screening 4 5-15 [facility] Work Phone: Absolute lymphocyte counton 05-21-2022 Lymphocytes Auto (Unsp spec) [#/Vol] 2.91 10*3/uL 0.83-4.51 [facility] Work Phone: Basophil percentageon 2021 Basophils/100 WBC (Bld) 0.9 % 0-1 [facility] Work Phone: Bilirubin [Mass/Vol] 0.20 mg/dL 0.20-1.00 [facility] Work Phone: Comment on above: For patients on eltr ombopag therapy, use of Dimension [place] TBIL is not recommended. Chloride [Moles/Vol] 100 mmol/L 98-107 [facility] Work Phone: Cholesterol [Mass/Vol] 244 mg/dL <200 [facility] Work Phone: Comment on above: <200 mg/dL Desirable 200-240 mg/dL Borderline >240 mg/dL High Risk Eosinophils/100 WBC (Bld) 2.1 % 0-5 [facility] Work Phone: Glucose [Mass/Vol] 197 mg/dL 74-106 [facility] Work Phone: Comment on above: Fasting Glucose resu lt greater than or equal to 126 mg/dL suggests DIABETES MELLITUS per A.D.A. criteria. Neutrophils (Bld) [#/Vol] 2.3 10*3/uL 2.0-7.7 [facility] Work Phone: Neutrophils/100 WBC (Bld) 39.7 % 47-70 [facility] Work Phone: Potassium [Moles/Vol] 4.3 mmol/L 3.5-5.1 [facility] Work Phone: Protein [Mass/Vol] 6.9 g/dL 6.4-8.2 [facility] Work Phone: Sodium [Moles/Vol] 136 mmol/L 136-145 [facility] Work Phone: Triglyceride [Mass/Vol] 337 mg/dL <199 [facility] Work Phone: Comment on above: The drugs N-Acetylcy steine and Metamizole may falsely depress this assay.Serum Triglycerides Reference Interval Normal <150 mg/dL Borderline high 150 - 199 mg/dL High 200 - 499 mg/dL Very High > or = 500 mg/dL WBC (Bld) [#/Vol] 5.7 10*3/uL 4.4-11.0 [facility] Work Phone: Blood erythrocytes count (nu mber/volume)on 05-21-2022 RBC (Bld) [#/Vol] 3.57 10*6/uL 4.2-5.4 [facility] Work Phone: Blood hemoglobin measurement (mass/volume)on 05-21-2022 Hemoglobin (Bld) [Mass/Vol] 10.8 g/dL 12.0-15.0 [facility] Work Phone: Blood lymphocytes/100 leukoc yteson 05-21-2022 Lymphocytes/100 WBC (Bld) 51.4 % 19-41 [facility] Work Phone: Blood monocytes/100 leukocyt eson 05-21-2022 Monocytes/100 WBC (Bld) 5.5 % 0-10 [facility] Work Phone: Blood platelet mean volumeon 05-21-2022 Platelet mean volume (Bld) [Entitic vol] 9.2 fL 6.2-12.0 [facility] Work Phone: Determination of erythrocyte mean corpuscular volume (MCV)on 05-21-2022 MCV (RBC) [Entitic vol] 92.4 fL 81-99 [facility] Work Phone: Glucose Glucometer (BldC) [M ass/Vol]on 05-21-2022 Glucose [Mass/Vol] 164 mg/dL 74-106 [facility] Work Phone: Comment on above: MANAGEMENT OF PATIEN T CARE PER NURSING PROTOCOL Hematocrit Auto (Bld) [Volum e fraction]on 05-21-2022 Hematocrit (Bld) [Volume fraction] 33.0 % 37-47 [facility] Work Phone: Laboratory - Chemistry and C hemistry - challengeon 05-21-2022 ALP [Catalytic activity/Vol] 76 U/L 45-117 [facility] Work Phone: ALT [Catalytic activity/Vol] 83 U/L 13-56 [facility] Work Phone: CO2 [Moles/Vol] 31.0 mmol/L 21.0-32.0 [facility] Work Phone: Free T4 [Mass/Vol] 0.14 ng/dL 0.76-1.46 [facility] Work Phone: Globulin (S) [Mass/Vol] 3.8 g/dL 2.2-4.2 [facility] Work Phone: Urea nitrogen/Creatinine [Mass ratio] 15.0 mg/mg 10-20 [facility] Work Phone: Laboratory - Hematology and Cell countson 05-21-2022 Erythrocyte distribution width (RBC) [Entitic vol] 48.4 fL 35.1-43.9 [facility] Work Phone: Erythrocyte distribution width (RBC) [Ratio] 14.2 % 11.6-14.6 [facility] Work Phone: Immature granulocytes/100 WBC (Bld) 0.400 % 0.0-0.9 [facility] Work Phone: Comment on above: IG% - Immature Granu locytes (promyelocytes, myelocytes and metamyelocytes) > 1% indicates that a LEFT SHIFT is Present. MCH (RBC) [Entitic mass] 30.3 pg 27.0-32.0 [facility] Work Phone: Nucleated RBC/100 WBC (Bld) [Ratio] 0 % 0-5 [facility] Work Phone: MCHC Auto (RBC) [Mass/Vol]on 05-21-2022 MCHC (RBC) [Mass/Vol] 32.7 g/dL 32-36 [facility] Work Phone: No Panel Informationon 05-21 Estimated Creatinine Clearance Calc 36.71 ml/min [facility] Work Phone: Estimated GFR (MDRD) Amer 59 mL/min >60 [facility] Work Phone: Comment on above: GFR Calc Estimated GFR (MDRD) Non-Af Amer 49 mL/min >60 [facility] Work Phone: Comment on above: Non- GFR Calc Troponin I High Sensitivity 32 pg/mL 3.0-54.0 [facility] Work Phone: Comment on above: Please Note: New Carolann t Units and Gender Specific Reference Ranges. For more information see Policy Stat Procedure [place] High Sensitivity Troponin (TNIH) and attachments. Troponin I High Sensitivity 32 pg/mL 3.0-54.0 [facility] Work Phone: Comment on above: Please Note: New Carolann t Units and Gender Specific Reference Ranges. For more information see Policy Stat Procedure [place] High Sensitivity Troponin (TNIH) and attachments. Platelets bldon 05-21-2022 Platelets (Bld) [#/Vol] 240 10*3/uL 150-450 [facility] Work Phone: Serum or plasma albumin tai urement (mass/volume)on 05-21-2022 Albumin [Mass/Vol] 3.1 g/dL 3.2-5.0 [facility] Work Phone: Serum or plasma albumin/glob ulin mass ratioon 05-21-2022 Albumin/Globulin [Mass ratio] 0.8 {ratio} 0.9-2.4 [facility] Work Phone: Serum or plasma calcium tai urement (mass/volume)on 05-21-2022 Calcium [Mass/Vol] 8.6 mg/dL 8.5-10.1 [facility] Work Phone: Serum or plasma cholesterol in HDL measurement (mass/volume)on 05-21-2022 Cholesterol in HDL [Mass/Vol] 31 mg/dL >40 [facility] Work Phone: Comment on above: The drugs N-Acetylcy steine and Metamizole may falsely depress this assay. Reference Range HDL <40 mg/dL Low HDL Cholesterol HDL >or= 60 mg/dL High HDL Cholesterol Serum or plasma cholesterol in VLDL measurement (mass/volume)on 05-21-2022 Cholesterol in VLDL [Mass/Vol] 67 mg/dL 5-40 [facility] Work Phone: Serum or plasma creatinine m easurement (mass/volume)on 05-21-2022 Creatinine [Mass/Vol] 1.20 mg/dL 0.55-1.02 [facility] Work Phone: Comment on above: The validity of the calculated GFR & GFRAA in patients over 70 years has not been determined. Clinical correlation is essential. Serum or plasma low density lipoprotein (LDL) cholesterol measurement (mass/volume)on 05-21-2022 Cholesterol in LDL [Mass/Vol] 146 mg/dL 0-130 [facility] Work Phone: Serum or plasma urea nitroge n measurement (mass/volume)on 05-21-2022 Urea nitrogen [Mass/Vol] 18 mg/dL 7-18 [facility] Work Phone: Thin prep Papanicolaou smear with manual screeningon 05-21-2022 Thin prep Papanicolaou smear with manual screening 42 U/L 15-37 [facility] Work Phone: Thin prep Papanicolaou smear with manual screening 5 5-15 [facility] Work Phone: Absolute lymphocyte counton 05-20-2022 Lymphocytes Auto (Unsp spec) [#/Vol] 2.77 10*3/uL 0.83-4.51 [facility] Work Phone: Basophil percentageon 2021 Basophils/100 WBC (Bld) 0.9 % 0-1 [facility] Work Phone: Chloride [Moles/Vol] 99 mmol/L 98-107 [facility] Work Phone: Eosinophils/100 WBC (Bld) 2.0 % 0-5 [facility] Work Phone: [phone] Glucose [Mass/Vol] 322 mg/dL 74-106 [facility] Work Phone: Comment on above: Glucose result great er than or equal to 200 mg/dLsuggests DIABETES MELLITUS per A.D.A. criteria. Neutrophils (Bld) [#/Vol] 3.3 10*3/uL 2.0-7.7 [facility] Work Phone: Neutrophils/100 WBC (Bld) 49.7 % 47-70 [facility] Work Phone: Potassium [Moles/Vol] 4.3 mmol/L 3.5-5.1 [facility] Work Phone: [phone] Sodium [Moles/Vol] 135 mmol/L 136-145 [facility] Work Phone: WBC (Bld) [#/Vol] 6.6 10*3/uL 4.4-11.0 [facility] Work Phone: Blood erythrocytes count (nu mber/volume)on 05-20-2022 RBC (Bld) [#/Vol] 3.54 10*6/uL 4.2-5.4 [facility] Work Phone: Blood hemoglobin measurement (mass/volume)on 05-20-2022 Hemoglobin (Bld) [Mass/Vol] 10.9 g/dL 12.0-15.0 [facility] Work Phone: Blood lymphocytes/100 leukoc yteson 05-20-2022 Lymphocytes/100 WBC (Bld) 42.3 % 19-41 [facility] Work Phone: Blood monocytes/100 leukocyt eson 05-20-2022 Monocytes/100 WBC (Bld) 4.6 % 0-10 [facility] Work Phone: Blood platelet mean volumeon 05-20-2022 Platelet mean volume (Bld) [Entitic vol] 9.5 fL 6.2-12.0 [facility] Work Phone: Determination of erythrocyte mean corpuscular volume (MCV)on 05-20-2022 MCV (RBC) [Entitic vol] 91.5 fL 81-99 [facility] Work Phone: Hematocrit Auto (Bld) [Volum e fraction]on 05-20-2022 Hematocrit (Bld) [Volume fraction] 32.4 % 37-47 [facility] Work Phone: INR in Blood by Coagulation assayon 05-20-2022 INR Coag (Bld) [Relative time] 1.0 {INR} [facility] Work Phone: Laboratory - Chemistry and C hemistry - challengeon 05-20-2022 CO2 [Moles/Vol] 30.0 mmol/L 21.0-32.0 [facility] Work Phone: Magnesium [Mass/Vol] 2.1 mg/dL 1.6-2.6 [facility] Work Phone: Urea nitrogen/Creatinine [Mass ratio] 15.4 mg/mg 10-20 [facility] Work Phone: Laboratory - Coagulationon 0 05-20-2022 aPTT Coag (Bld) [Time] 29.0 s 24.1-36.2 [facility] Work Phone: PT Coag (PPP) [Time] 13.1 s 11.7-14.9 [facility] Work Phone: Laboratory - Drug toxicology on 05-20-2022 Amphetamines Ql (U) Negative <1000 ng/mL [facility] Work Phone: Benzodiazepines Ql (U) Positive < 200 ng/mL [facility] Work Phone: Cannabinoids Screen Ql (U) Negative < 50 ng/mL [facility] Work Phone: Cocaine Ql (U) Negative < 300 ng/mL [facility] Work Phone: Opiates Ql (U) Negative < 300 ng/mL [facility] Work Phone: Laboratory - Hematology and Cell countson 05-20-2022 Erythrocyte distribution width (RBC) [Entitic vol] 47.6 fL 35.1-43.9 [facility] Work Phone: Erythrocyte distribution width (RBC) [Ratio] 14.3 % 11.6-14.6 [facility] Work Phone: Immature granulocytes/100 WBC (Bld) 0.500 % 0.0-0.9 [facility] Work Phone: Comment on above: IG% - Immature Granu locytes (promyelocytes, myelocytes and metamyelocytes) > 1% indicates that a LEFT SHIFT is Present. MCH (RBC) [Entitic mass] 30.8 pg 27.0-32.0 [facility] Work Phone: Nucleated RBC/100 WBC (Bld) [Ratio] 0 % 0-5 [facility] Work Phone: MCHC Auto (RBC) [Mass/Vol]on 05-20-2022 MCHC (RBC) [Mass/Vol] 33.6 g/dL 32-36 [facility] Work Phone: No Panel Informationon 05-20 MDMA (Ecstasy) Screen Negative < 500 ng/mL [facility] Work Phone: Urine Barbiturates Screen Negative < 200 ng/mL [facility] Work Phone: Urine Drug Screen Comment [facility] Work Phone: Comment on above: CONFIRMATORY [...] Urine Methadone Screen Negative < 300 ng/mL [facility] Work Phone: Estimated Creatinine Clearance Calc 35.81 ml/min [facility] Work Phone: Estimated GFR (MDRD) Amer 58 mL/min >60 [facility] Work Phone: Comment on above: GFR Calc Estimated GFR (MDRD) Non-Af Amer 48 mL/min >60 [facility] Work Phone: Comment on above: Non- GFR Calc Thyroid Stimulating Hormone (TSH) 109.00 uIU/mL 0.358-3.74 [facility] Work Phone: Platelets bldon 05-20-2022 Platelets (Bld) [#/Vol] 291 10*3/uL 150-450 [facility] Work Phone: Serum or plasma calcium tai urement (mass/volume)on 05-20-2022 Calcium [Mass/Vol] 9.2 mg/dL 8.5-10.1 [facility] Work Phone: Serum or plasma creatinine m easurement (mass/volume)on 05-20-2022 Creatinine [Mass/Vol] 1.23 mg/dL 0.55-1.02 [facility] Work Phone: Comment on above: The validity of the calculated GFR & GFRAA in patients over 70 years has not been determined. Clinical correlation is essential. Serum or plasma urea nitroge n measurement (mass/volume)on 05-20-2022 Urea nitrogen [Mass/Vol] 19 mg/dL 7-18 [facility] Work Phone: Thin prep Papanicolaou smear with manual screeningon 05-20-2022 Thin prep Papanicolaou smear with manual screening 6 5-15 [facility] Work Phone: Urine phencyclidine (PCP) de tectionon 05-20-2022 Phencyclidine Ql (U) Negative < 25 ng/mL [facility] Work Phone: Basophil percentageon 2021 Chloride [Moles/Vol] 99 mmol/L 98-107 [facility] Work Phone: Glucose [Mass/Vol] 161 mg/dL 74-106 [facility] Work Phone: Comment on above: Fasting Glucose resu lt greater than or equal to 126 mg/dL suggests DIABETES MELLITUS per A.D.A. criteria. Potassium [Moles/Vol] 4.0 mmol/L 3.5-5.1 [facility] Work Phone: Sodium [Moles/Vol] 135 mmol/L 136-145 [facility] Work Phone: WBC (Bld) [#/Vol] 8.6 10*3/uL 4.4-11.0 [facility] Work Phone: Blood erythrocytes count (nu mber/volume)on 05-12-2022 RBC (Bld) [#/Vol] 3.83 10*6/uL 4.2-5.4 [facility] Work Phone: Blood hemoglobin measurement (mass/volume)on 05-12-2022 Hemoglobin (Bld) [Mass/Vol] 11.7 g/dL 12.0-15.0 [facility] Work Phone: Blood platelet mean volumeon 05-12-2022 Platelet mean volume (Bld) [Entitic vol] 9.0 fL 6.2-12.0 [facility] Work Phone: Determination of erythrocyte mean corpuscular volume (MCV)on 05-12-2022 MCV (RBC) [Entitic vol] 92.7 fL 81-99 [facility] Work Phone: Hematocrit Auto (Bld) [Volum e fraction]on 05-12-2022 Hematocrit (Bld) [Volume fraction] 35.5 % 37-47 [facility] Work Phone: Laboratory - Chemistry and C hemistry - challengeon 05-12-2022 CO2 [Moles/Vol] 30.0 mmol/L 21.0-32.0 [facility] Work Phone: Urea nitrogen/Creatinine [Mass ratio] 21.8 mg/mg 10-20 [facility] Work Phone: Laboratory - Hematology and Cell countson 05-12-2022 Erythrocyte distribution width (RBC) [Entitic vol] 48.8 fL 35.1-43.9 [facility] Work Phone: Erythrocyte distribution width (RBC) [Ratio] 14.5 % 11.6-14.6 [facility] Work Phone: MCH (RBC) [Entitic mass] 30.5 pg 27.0-32.0 [facility] Work Phone: MCHC Auto (RBC) [Mass/Vol]on 05-12-2022 MCHC (RBC) [Mass/Vol] 33.0 g/dL 32-36 [facility] No Panel Informationon 05-12 Estimated GFR (MDRD) Amer 60 mL/min >60 [facility] Work Phone: Comment on above: GFR Calc Estimated GFR (MDRD) Non-Af Amer 49 mL/min >60 [facility] Work Phone: Comment on above: Non- GFR Calc Platelets bldon 05-12-2022 Platelets (Bld) [#/Vol] 287 10*3/uL 150-450 [facility] Work Phone: Serum or plasma calcium tai urement (mass/volume)on 05-12-2022 Calcium [Mass/Vol] 9.7 mg/dL 8.5-10.1 [facility] Work Phone: Serum or plasma creatinine m easurement (mass/volume)on 05-12-2022 Creatinine [Mass/Vol] 1.19 mg/dL 0.55-1.02 [facility] Work Phone: Comment on above: The validity of the calculated GFR & GFRAA in patients over 70 years has not been determined. Clinical correlation is essential. Serum or plasma urea nitroge n measurement (mass/volume)on 05-12-2022 Urea nitrogen [Mass/Vol] 26 mg/dL 7-18 [facility] Work Phone: Thin prep Papanicolaou smear with manual screeningon 05-12-2022 Thin prep Papanicolaou smear with manual screening 6 5-15 [facility] Work Phone: Absolute lymphocyte counton 05-03-2022 Lymphocytes Auto (Unsp spec) [#/Vol] 2.67 10*3/uL 0.83-4.51 [facility] Work Phone: Basophil percentageon 2021 Basophils/100 WBC (Bld) 1.2 % 0-1 [facility] Work Phone: Chloride [Moles/Vol] 100 mmol/L 98-107 [facility] Work Phone: Eosinophils/100 WBC (Bld) 1.5 % 0-5 [facility] Work Phone: Glucose [Mass/Vol] 130 mg/dL 74-106 [facility] Work Phone: Comment on above: Fasting Glucose resu lt greater than or equal to 126 mg/dL suggests DIABETES MELLITUS per A.D.A. criteria. Neutrophils (Bld) [#/Vol] 2.7 10*3/uL 2.0-7.7 [facility] Work Phone: Neutrophils/100 WBC (Bld) 45.1 % 47-70 [facility] Work Phone: [phone] Potassium [Moles/Vol] 4.0 mmol/L 3.5-5.1 [facility] Work [facility]: Sodium [Moles/Vol] 136 mmol/L 136-145 [facility] Work Phone: WBC (Bld) [#/Vol] 5.9 10*3/uL 4.4-11.0 [facility] Work Phone: Blood erythrocytes count (nu mber/volume)on 05-03-2022 RBC (Bld) [#/Vol] 3.46 10*6/uL 4.2-5.4 [facility] Work [facility]: Blood hemoglobin measurement (mass/volume)on 05-03-2022 Hemoglobin (Bld) [Mass/Vol] 10.6 g/dL 12.0-15.0 [facility] Work Phone: Blood lymphocytes/100 leukoc yteson 05-03-2022 Lymphocytes/100 WBC (Bld) 45.1 % 19-41 [facility] Work Phone: Blood monocytes/100 leukocyt eson 05-03-2022 Monocytes/100 WBC (Bld) 6.3 % 0-10 [facility] Work Phone: Blood platelet mean volumeon 05-03-2022 Platelet mean volume (Bld) [Entitic vol] 9.4 fL 6.2-12.0 [facility] Work Phone: Determination of erythrocyte mean corpuscular volume (MCV)on 05-03-2022 MCV (RBC) [Entitic vol] 91.3 fL 81-99 [facility] Work Phone: Hematocrit Auto (Bld) [Volum e fraction]on 05-03-2022 Hematocrit (Bld) [Volume fraction] 31.6 % 37-47 [facility] Work Phone: Laboratory - Chemistry and C hemistry - challengeon 05-03-2022 CO2 [Moles/Vol] 29.0 mmol/L 21.0-32.0 [facility] Work Phone: Urea nitrogen/Creatinine [Mass ratio] 19.3 mg/mg 10-20 [facility] Work Phone: Laboratory - Hematology and Cell countson 05-03-2022 Erythrocyte distribution width (RBC) [Entitic vol] 46.8 fL 35.1-43.9 [facility] Work Phone: Erythrocyte distribution width (RBC) [Ratio] 14.4 % 11.6-14.6 [facility] Work Phone: Immature granulocytes/100 WBC (Bld) 0.800 % 0.0-0.9 [facility] Work Phone: Comment on above: IG% - Immature Granu locytes (promyelocytes, myelocytes and metamyelocytes) > 1% indicates that a LEFT SHIFT is Present. MCH (RBC) [Entitic mass] 30.6 pg 27.0-32.0 [facility] Work Phone: Nucleated RBC/100 WBC (Bld) [Ratio] 0.3 % 0-5 [facility] Work Phone: MCHC Auto (RBC) [Mass/Vol]on 05-03-2022 MCHC (RBC) [Mass/Vol] 33.5 g/dL 32-36 [facility] Work Phone: No Panel Informationon 05-03 Troponin I High Sensitivity 57 pg/mL 3.0-54.0 [facility] Work Phone: Comment on above: Please Note: New Carolann t Units and Gender Specific Reference Ranges. For more information see Policy Stat Procedure [place] High Sensitivity Troponin (TNIH) and attachments. Estimated Creatinine Clearance Calc 37.01 ml/min [facility] Work Phone: Estimated GFR (MDRD) Amer 60 mL/min >60 [facility] Work Phone: Comment on above: GFR Calc Estimated GFR (MDRD) Non-Af Amer 49 mL/min >60 [facility] Work Phone: Comment on above: Non- GFR Calc Platelets bldon 05-03-2022 Platelets (Bld) [#/Vol] 267 10*3/uL 150-450 [facility] Work Phone: Serum or plasma calcium tai urement (mass/volume)on 05-03-2022 Calcium [Mass/Vol] 9.1 mg/dL 8.5-10.1 [facility] Work Phone: Serum or plasma creatinine m easurement (mass/volume)on 05-03-2022 Creatinine [Mass/Vol] 1.19 mg/dL 0.55-1.02 [facility] Work Phone: Comment on above: The validity of the calculated GFR & GFRAA in patients over 70 years has not been determined. Clinical correlation is essential. Serum or plasma urea nitroge n measurement (mass/volume)on 05-03-2022 Urea nitrogen [Mass/Vol] 23 mg/dL 7-18 [facility] Work Phone: Thin prep Papanicolaou smear with manual screeningon 05-03-2022 Thin prep Papanicolaou smear with manual screening 7 5-15 [facility] Work Phone: Basophil percentageon 2021 Chloride [Moles/Vol] 92 mmol/L 98-107 [facility] Work Phone: Glucose [Mass/Vol] 66 mg/dL 74-106 [facility] Work Phone: Potassium [Moles/Vol] 4.3 mmol/L 3.5-5.1 [facility] Work Phone: Sodium [Moles/Vol] 131 mmol/L 136-145 [facility] Work Phone: WBC (Bld) [#/Vol] 6.1 10*3/uL 4.4-11.0 [facility] Work Phone: Blood erythrocytes count (nu mber/volume)on 04-28-2022 RBC (Bld) [#/Vol] 3.66 10*6/uL 4.2-5.4 [facility] Work Phone: Blood hemoglobin measurement (mass/volume)on 04-28-2022 Hemoglobin (Bld) [Mass/Vol] 11.1 g/dL 12.0-15.0 [facility] Work Phone: Blood platelet mean volumeon 04-28-2022 Platelet mean volume (Bld) [Entitic vol] 9.5 fL 6.2-12.0 [facility] Work Phone: Determination of erythrocyte mean corpuscular volume (MCV)on 04-28-2022 MCV (RBC) [Entitic vol] 90.7 fL 81-99 [facility] Work Phone: Hematocrit Auto (Bld) [Volum e fraction]on 04-28-2022 Hematocrit (Bld) [Volume fraction] 33.2 % 37-47 [facility] Work Phone: Laboratory - Chemistry and C hemistry - challengeon 04-28-2022 CO2 [Moles/Vol] 31.0 mmol/L 21.0-32.0 [facility] Work Phone: Urea nitrogen/Creatinine [Mass ratio] 21.4 mg/mg 10-20 [facility] Work Phone: Laboratory - Hematology and Cell countson 04-28-2022 Erythrocyte distribution width (RBC) [Entitic vol] 46.7 fL 35.1-43.9 [facility] Work Phone: Erythrocyte distribution width (RBC) [Ratio] 14.2 % 11.6-14.6 [facility] Work Phone: MCH (RBC) [Entitic mass] 30.3 pg 27.0-32.0 [facility] Work Phone: MCHC Auto (RBC) [Mass/Vol]on 04-28-2022 MCHC (RBC) [Mass/Vol] 33.4 g/dL 32-36 [facility] Work [facility]: No Panel Informationon 04-28 Estimated GFR (MDRD) Amer 71 mL/min >60 [facility] Work Phone: Comment on above: GFR Calc Estimated GFR (MDRD) Non-Af Amer 58 mL/min >60 [facility] Work Phone: Comment on above: Non- GFR Calc Platelets bldon 04-28-2022 Platelets (Bld) [#/Vol] 262 10*3/uL 150-450 [facility] Work Phone: Serum or plasma calcium tai urement (mass/volume)on 04-28-2022 Calcium [Mass/Vol] 9.4 mg/dL 8.5-10.1 [facility] Work Phone: Serum or plasma creatinine m easurement (mass/volume)on 04-28-2022 Creatinine [Mass/Vol] 1.03 mg/dL 0.55-1.02 [facility] Work Phone: Comment on above: The validity of the calculated GFR & GFRAA in patients over 70 years has not been determined. Clinical correlation is essential. Serum or plasma urea nitroge n measurement (mass/volume)on 04-28-2022 Urea nitrogen [Mass/Vol] 22 mg/dL 7-18 [facility] Work Phone: Thin prep Papanicolaou smear with manual screeningon 04-28-2022 Thin prep Papanicolaou smear with manual screening 8 5-15 [facility] Work Phone: Basophil percentageon 2021 Bilirubin [Mass/Vol] 0.20 mg/dL 0.20-1.00 [facility] Work Phone: Comment on above: For patients on eltr ombopag therapy, use of Dimension [place] TBIL is not recommended. Cholesterol [Mass/Vol] 254 mg/dL <200 [facility] Work Phone: Comment on above: <200 mg/dL Desirable 200-240 mg/dL Borderline >240 mg/dL High Risk Protein [Mass/Vol] 7.4 g/dL 6.4-8.2 [facility] Work Phone: Triglyceride [Mass/Vol] 250 mg/dL <199 [facility] Work Phone: Comment on above: The drugs N-Acetylcy steine and Metamizole may falsely depress this assay.Serum Triglycerides Reference Interval Normal <150 mg/dL Borderline high 150 - 199 mg/dL High 200 - 499 mg/dL Very High > or = 500 mg/dL Direct bilirubinon 2 Bilirubin.direct [Mass/Vol] 0.08 mg/dL 0.00-0.30 [facility] Work Phone: Glucose Glucometer (BldC) [M ass/Vol]on 04-25-2022 Glucose [Mass/Vol] 172 mg/dL 74-106 [facility] Work Phone: Comment on above: MANAGEMENT OF PATIEN T CARE PER NURSING PROTOCOL Glucose [Mass/Vol] 135 mg/dL 74-106 [facility] Work Phone: Comment on above: MANAGEMENT OF PATIEN T CARE PER NURSING PROTOCOL Laboratory - Chemistry and C hemistry - challengeon 04-25-2022 ALP [Catalytic activity/Vol] 123 U/L 45-117 [facility] Work Phone: ALT [Catalytic activity/Vol] 157 U/L 13-56 [facility] Work Phone: Globulin (S) [Mass/Vol] 4.1 g/dL 2.2-4.2 [facility] Work Phone: Serum or plasma albumin tai urement (mass/volume)on 04-25-2022 Albumin [Mass/Vol] 3.3 g/dL 3.2-5.0 [facility] Work Phone: Serum or plasma cholesterol in HDL measurement (mass/volume)on 04-25-2022 Cholesterol in HDL [Mass/Vol] 41 mg/dL >40 [facility] Work Phone: Comment on above: The drugs N-Acetylcy steine and Metamizole may falsely depress this assay. Reference Range HDL <40 mg/dL Low HDL Cholesterol HDL >or= 60 mg/dL High HDL Cholesterol Serum or plasma cholesterol in VLDL measurement (mass/volume)on 04-25-2022 Cholesterol in VLDL [Mass/Vol] 50 mg/dL 5-40 [facility] Work Phone: Serum or plasma low density lipoprotein (LDL) cholesterol measurement (mass/volume)on 04-25-2022 Cholesterol in LDL [Mass/Vol] 163 mg/dL 0-130 [facility] Work Phone: Thin prep Papanicolaou smear with manual screeningon 04-25-2022 Thin prep Papanicolaou smear with manual screening 124 U/L 15-37 [facility] Work Phone: Whole blood hemoglobin A1c/t otal hemoglobin ratio (mass fraction)on 04-25-2022 HbA1c (Bld) [Mass fraction] 9.4 % 3.8-5.6 [facility] Work Phone: Comment on above: Normal < 5.7 % Predi abetic 5.7 - 6.4 % Diabetic >or= 6.5 % Please note range changes. Absolute lymphocyte counton 04-24-2022 Lymphocytes Auto (Unsp spec) [#/Vol] 2.29 10*3/uL 0.83-4.51 [facility] Work Phone: Basophil percentageon 2021 Basophils/100 WBC (Bld) 1.1 % 0-1 [facility] Work Phone: Chloride [Moles/Vol] 101 mmol/L 98-107 [facility] Work Phone: Eosinophils/100 WBC (Bld) 2.2 % 0-5 [facility] Work Phone: Glucose [Mass/Vol] 180 mg/dL 74-106 [facility] Work Phone: Comment on above: Fasting Glucose resu lt greater than or equal to 126 mg/dL suggests DIABETES MELLITUS per A.D.A. criteria. Neutrophils (Bld) [#/Vol] 2.6 10*3/uL 2.0-7.7 [facility] Work Phone: Neutrophils/100 WBC (Bld) 49.1 % 47-70 [facility] Work Phone: Potassium [Moles/Vol] 3.9 mmol/L 3.5-5.1 [facility] Work [facility]: Sodium [Moles/Vol] 138 mmol/L 136-145 [facility] Work Phone: WBC (Bld) [#/Vol] 5.4 10*3/uL 4.4-11.0 [facility] Work Phone: Blood erythrocytes count (nu mber/volume)on 04-24-2022 RBC (Bld) [#/Vol] 3.73 10*6/uL 4.2-5.4 [facility] Work Phone: [phone] Blood hemoglobin measurement (mass/volume)on 04-24-2022 Hemoglobin (Bld) [Mass/Vol] 11.4 g/dL 12.0-15.0 [facility] Work Phone: Blood lymphocytes/100 leukoc yteson 04-24-2022 Lymphocytes/100 WBC (Bld) 42.6 % 19-41 [facility] Work Phone: Blood monocytes/100 leukocyt eson 04-24-2022 Monocytes/100 WBC (Bld) 3.9 % 0-10 [facility] Work Phone: Blood platelet mean volumeon 04-24-2022 Platelet mean volume (Bld) [Entitic vol] 9.5 fL 6.2-12.0 [facility] Work Phone: Determination of erythrocyte mean corpuscular volume (MCV)on 04-24-2022 MCV (RBC) [Entitic vol] 91.4 fL 81-99 [facility] Work Phone: Hematocrit Auto (Bld) [Volum e fraction]on 04-24-2022 Hematocrit (Bld) [Volume fraction] 34.1 % 37-47 [facility] Work Phone: Laboratory - Chemistry and C hemistry - challengeon 04-24-2022 CO2 [Moles/Vol] 28.0 mmol/L 21.0-32.0 [facility] Work Phone: Urea nitrogen/Creatinine [Mass ratio] 15.7 mg/mg 10-20 [facility] Work Phone: Laboratory - Hematology and Cell countson 04-24-2022 Erythrocyte distribution width (RBC) [Entitic vol] 46.6 fL 35.1-43.9 [facility] Work Phone: Erythrocyte distribution width (RBC) [Ratio] 14.0 % 11.6-14.6 [facility] Work Phone: Immature granulocytes/100 WBC (Bld) 1.100 % 0.0-0.9 [facility] Work Phone: Comment on above: IG% - Immature Granu locytes (promyelocytes, myelocytes and metamyelocytes) > 1% indicates that a LEFT SHIFT is Present. MCH (RBC) [Entitic mass] 30.6 pg 27.0-32.0 [facility] Work Phone: Nucleated RBC/100 WBC (Bld) [Ratio] 0 % 0-5 [facility] Work Phone: MCHC Auto (RBC) [Mass/Vol]on 04-24-2022 MCHC (RBC) [Mass/Vol] 33.4 g/dL 32-36 [facility] Work Phone: No Panel Informationon 04-24 Troponin I High Sensitivity 57 pg/mL 3.0-54.0 [facility] Work Phone: Comment on above: Please Note: New Carolann t Units and Gender Specific Reference Ranges. For more information see Policy Stat Procedure [facility] High Sensitivity Troponin (TNIH) and attachments. D-Dimer Quantitative (PE/DVT) 0.32 FEU/ug/m 0.27-0.49 [facility] Work Phone: Comment on above: NORMAL D-Dimer level (<0.50) indicates no DVT or PE. Estimated Creatinine Clearance Calc 40.78 ml/min [facility] Work Phone: [phone] Estimated GFR (MDRD) Amer 67 mL/min >60 [facility] Work Phone: Comment on above: GFR Calc Estimated GFR (MDRD) Non-Af Amer 55 mL/min >60 [facility] Work Phone: Comment on above: Non- GFR Calc Platelets bldon 04-24-2022 Platelets (Bld) [#/Vol] 254 10*3/uL 150-450 [facility] Work Phone: Serum or plasma calcium tai urement (mass/volume)on 04-24-2022 Calcium [Mass/Vol] 9.3 mg/dL 8.5-10.1 [facility] Work Phone: Serum or plasma creatinine m easurement (mass/volume)on 04-24-2022 Creatinine [Mass/Vol] 1.08 mg/dL 0.55-1.02 [facility] Work Phone: Comment on above: The validity of the calculated GFR & GFRAA in patients over 70 years has not been determined. Clinical correlation is essential. Serum or plasma urea nitroge n measurement (mass/volume)on 04-24-2022 Urea nitrogen [Mass/Vol] 17 mg/dL 7-18 [facility] Work Phone: Thin prep Papanicolaou smear with manual screeningon 04-24-2022 Thin prep Papanicolaou smear with manual screening 9 5-15 [facility] Work Phone: Absolute lymphocyte counton 04-17-2022 Lymphocytes Auto (Unsp spec) [#/Vol] 2.66 10*3/uL 0.83-4.51 [facility] Work Phone: Basophil percentageon 2021 Basophils/100 WBC (Bld) 1.1 % 0-1 [facility] Work Phone: Chloride [Moles/Vol] 100 mmol/L 98-107 [facility] Work Phone: Eosinophils/100 WBC (Bld) 3.0 % 0-5 [facility] Work Phone: [phone] Glucose [Mass/Vol] 86 mg/dL 74-106 [facility] Work Phone: [phone] Neutrophils (Bld) [#/Vol] 2.1 10*3/uL 2.0-7.7 [facility] Work Phone: [phone] Neutrophils/100 WBC (Bld) 39.4 % 47-70 [facility] Work Phone: [phone] Potassium [Moles/Vol] 3.8 mmol/L 3.5-5.1 [facility] Work [facility]: Sodium [Moles/Vol] 136 mmol/L 136-145 [facility] Work Phone: WBC (Bld) [#/Vol] 5.4 10*3/uL 4.4-11.0 [facility] Work Phone: Blood erythrocytes count (nu mber/volume)on 04-17-2022 RBC (Bld) [#/Vol] 3.75 10*6/uL 4.2-5.4 [facility] Work Phone: Blood hemoglobin measurement (mass/volume)on 04-17-2022 Hemoglobin (Bld) [Mass/Vol] 11.5 g/dL 12.0-15.0 [facility] Work Phone: Blood lymphocytes/100 leukoc yteson 04-17-2022 Lymphocytes/100 WBC (Bld) 49.4 % 19-41 [facility] Work Phone: [phone] Blood monocytes/100 leukocyt eson 04-17-2022 Monocytes/100 WBC (Bld) 5.6 % 0-10 [facility] Work Phone: Blood platelet mean volumeon 04-17-2022 Platelet mean volume (Bld) [Entitic vol] 9.3 fL 6.2-12.0 [facility] Work Phone: Determination of erythrocyte mean corpuscular volume (MCV)on 04-17-2022 MCV (RBC) [Entitic vol] 91.7 fL 81-99 [facility] Work Phone: Hematocrit Auto (Bld) [Volum e fraction]on 04-17-2022 Hematocrit (Bld) [Volume fraction] 34.4 % 37-47 [facility] Work Phone: Laboratory - Chemistry and C hemistry - challengeon 04-17-2022 CO2 [Moles/Vol] 28.0 mmol/L 21.0-32.0 [facility] Work Phone: Urea nitrogen/Creatinine [Mass ratio] 14.8 mg/mg 10-20 [facility] Work Phone: Laboratory - Hematology and Cell countson 04-17-2022 Erythrocyte distribution width (RBC) [Entitic vol] 46.6 fL 35.1-43.9 [facility] Work Phone: Erythrocyte distribution width (RBC) [Ratio] 13.9 % 11.6-14.6 [facility] Work Phone: Immature granulocytes/100 WBC (Bld) 1.500 % 0.0-0.9 [facility] Work Phone: Comment on above: IG% - Immature Granu locytes (promyelocytes, myelocytes and metamyelocytes) > 1% indicates that a LEFT SHIFT is Present. MCH (RBC) [Entitic mass] 30.7 pg 27.0-32.0 [facility] Work Phone: Nucleated RBC/100 WBC (Bld) [Ratio] 0 % 0-5 [facility] Work Phone: MCHC Auto (RBC) [Mass/Vol]on 04-17-2022 MCHC (RBC) [Mass/Vol] 33.4 g/dL 32-36 [facility] Work Phone: No Panel Informationon 04-17 Estimated GFR (MDRD) Amer 55 mL/min >60 [facility] Work Phone: Comment on above: GFR Calc Estimated GFR (MDRD) Non-Af Amer 45 mL/min >60 [facility] Work Phone: Comment on above: Non- GFR Calc Platelets bldon 04-17-2022 Platelets (Bld) [#/Vol] 244 10*3/uL 150-450 [facility] Work Phone: Serum or plasma calcium tai urement (mass/volume)on 04-17-2022 Calcium [Mass/Vol] 9.1 mg/dL 8.5-10.1 [facility] Work Phone: Serum or plasma creatinine m easurement (mass/volume)on 04-17-2022 Creatinine [Mass/Vol] 1.28 mg/dL 0.55-1.02 [facility] Work Phone: Comment on above: The validity of the calculated GFR & GFRAA in patients over 70 years has not been determined. Clinical correlation is essential. Serum or plasma urea nitroge n measurement (mass/volume)on 04-17-2022 Urea nitrogen [Mass/Vol] 19 mg/dL 7-18 [facility] Work Phone: Thin prep Papanicolaou smear with manual screeningon 04-17-2022 Thin prep Papanicolaou smear with manual screening 8 5-15 [facility] Work Phone: Basophil percentageon 2021 Chloride [Moles/Vol] 99 mmol/L 98-107 [facility] Work Phone: Glucose [Mass/Vol] 59 mg/dL 74-106 [facility] Work Phone: Potassium [Moles/Vol] 4.0 mmol/L 3.5-5.1 [facility] Work Phone: Sodium [Moles/Vol] 135 mmol/L 136-145 [facility] Work Phone: WBC (Bld) [#/Vol] 5.8 10*3/uL 4.4-11.0 [facility] Work Phone: Blood erythrocytes count (nu mber/volume)on 04-13-2022 RBC (Bld) [#/Vol] 3.84 10*6/uL 4.2-5.4 [facility] Work [facility]: Blood hemoglobin measurement (mass/volume)on 04-13-2022 Hemoglobin (Bld) [Mass/Vol] 11.6 g/dL 12.0-15.0 [facility] Work Phone: Blood platelet mean volumeon 04-13-2022 Platelet mean volume (Bld) [Entitic vol] 9.6 fL 6.2-12.0 [facility] Work Phone: Determination of erythrocyte mean corpuscular volume (MCV)on 04-13-2022 MCV (RBC) [Entitic vol] 93.2 fL 81-99 [facility] Work Phone: Hematocrit Auto (Bld) [Volum e fraction]on 04-13-2022 Hematocrit (Bld) [Volume fraction] 35.8 % 37-47 [facility] Work Phone: Laboratory - Chemistry and C hemistry - challengeon 04-13-2022 CO2 [Moles/Vol] 28.0 mmol/L 21.0-32.0 [facility] Work Phone: Urea nitrogen/Creatinine [Mass ratio] 13.2 mg/mg -20 [facility] Work Phone: Laboratory - Hematology and Cell countson 04-13-2022 Erythrocyte distribution width (RBC) [Entitic vol] 47.1 fL 35.1-43.9 [facility] Work Phone: Erythrocyte distribution width (RBC) [Ratio] 13.9 % 11.6-14.6 [facility] Work Phone: MCH (RBC) [Entitic mass] 30.2 pg 27.0-32.0 [facility] Work Phone: MCHC Auto (RBC) [Mass/Vol]on 04-13-2022 MCHC (RBC) [Mass/Vol] 32.4 g/dL 32-36 [facility] Work Phone: No Panel Informationon 04-13 Estimated GFR (MDRD) Amer 51 mL/min >60 [facility] Work Phone: Comment on above: GFR Calc Estimated GFR (MDRD) Non-Af Amer 42 mL/min >60 [facility] Work Phone: Comment on above: Non- GFR Calc Platelets bldon 04-13-2022 Platelets (Bld) [#/Vol] 284 10*3/uL 150-450 [facility] Work Phone: Serum or plasma calcium tai urement (mass/volume)on 04-13-2022 Calcium [Mass/Vol] 9.3 mg/dL 8.5-10.1 [facility] Work Phone: Serum or plasma creatinine m easurement (mass/volume)on 04-13-2022 Creatinine [Mass/Vol] 1.36 mg/dL 0.55-1.02 [facility] Work Phone: Comment on above: The validity of the calculated GFR & GFRAA in patients over 70 years has not been determined. Clinical correlation is essential. Serum or plasma urea nitroge n measurement (mass/volume)on 04-13-2022 Urea nitrogen [Mass/Vol] 18 mg/dL 7-18 [facility] Work Phone: Thin prep Papanicolaou smear with manual screeningon 04-13-2022 Thin prep Papanicolaou smear with manual screening 8 5-15 [facility] Work Phone: Basophil percentageon 2021 Chloride [Moles/Vol] 100 mmol/L 98-107 [facility] Work Phone: Glucose [Mass/Vol] 74 mg/dL 74-106 [facility] Work Phone: Potassium [Moles/Vol] 3.8 mmol/L 3.5-5.1 [facility] Work Phone: Sodium [Moles/Vol] 134 mmol/L 136-145 [facility] Work Phone: WBC (Bld) [#/Vol] 6.9 10*3/uL 4.4-11.0 [facility] Work Phone: Blood erythrocytes count (nu mber/volume)on 04-06-2022 RBC (Bld) [#/Vol] 3.80 10*6/uL 4.2-5.4 [facility] Work Phone: Blood hemoglobin measurement (mass/volume)on 04-06-2022 Hemoglobin (Bld) [Mass/Vol] 11.6 g/dL 12.0-15.0 [facility] Work Phone: Blood platelet mean volumeon 04-06-2022 Platelet mean volume (Bld) [Entitic vol] 9.2 fL 6.2-12.0 [facility] Work Phone: Determination of erythrocyte mean corpuscular volume (MCV)on 04-06-2022 MCV (RBC) [Entitic vol] 90.8 fL 81-99 [facility] Work Phone: Hematocrit Auto (Bld) [Volum e fraction]on 04-06-2022 Hematocrit (Bld) [Volume fraction] 34.5 % 37-47 [facility] Work Phone: Laboratory - Chemistry and C hemistry - challengeon 04-06-2022 CO2 [Moles/Vol] 27.0 mmol/L 21.0-32.0 [facility] Work Phone: Urea nitrogen/Creatinine [Mass ratio] 14.3 mg/mg 10-20 [facility] Work Phone: Laboratory - Hematology and Cell countson 04-06-2022 Erythrocyte distribution width (RBC) [Entitic vol] 46.6 fL 35.1-43.9 [facility] Work Phone: Erythrocyte distribution width (RBC) [Ratio] 13.9 % 11.6-14.6 [facility] Work Phone: MCH (RBC) [Entitic mass] 30.5 pg 27.0-32.0 [facility] Work Phone: MCHC Auto (RBC) [Mass/Vol]on 04-06-2022 MCHC (RBC) [Mass/Vol] 33.6 g/dL 32-36 [facility] Work Phone: No Panel Informationon 04-06 Estimated GFR (MDRD) Amer 64 mL/min >60 [facility] Work Phone: Comment on above: GFR Calc Estimated GFR (MDRD) Non-Af Amer 53 mL/min >60 [facility] Work Phone: Comment on above: Non- GFR Calc Platelets bldon 04-06-2022 Platelets (Bld) [#/Vol] 309 10*3/uL 150-450 [facility] Work Phone: Serum or plasma calcium tai urement (mass/volume)on 04-06-2022 Calcium [Mass/Vol] 9.3 mg/dL 8.5-10.1 [facility] Work Phone: Serum or plasma creatinine m easurement (mass/volume)on 04-06-2022 Creatinine [Mass/Vol] 1.12 mg/dL 0.55-1.02 [facility] Work Phone: Comment on above: The validity of the calculated GFR & GFRAA in patients over 70 years has not been determined. Clinical correlation is essential. Serum or plasma urea nitroge n measurement (mass/volume)on 04-06-2022 Urea nitrogen [Mass/Vol] 16 mg/dL 7-18 [facility] Work Phone: Thin prep Papanicolaou smear with manual screeningon 04-06-2022 Thin prep Papanicolaou smear with manual screening 7 5-15 [facility] Work Phone: Glucose Glucometer (BldC) [M ass/Vol]on 03-30-2022 Glucose [Mass/Vol] 140 mg/dL 74-106 [facility] Work Phone: Comment on above: MANAGEMENT OF PATIEN T CARE PER NURSING PROTOCOL Basophil percentageon 2021 Chloride [Moles/Vol] 97 mmol/L 98-107 [facility] Work Phone: Glucose [Mass/Vol] 78 mg/dL 74-106 [facility] Work Phone: Potassium [Moles/Vol] 3.5 mmol/L 3.5-5.1 [facility] Work Phone: Sodium [Moles/Vol] 136 mmol/L 136-145 [facility] Work Phone: Laboratory - Chemistry and C hemistry - challengeon 03-29-2022 CO2 [Moles/Vol] 30.0 mmol/L 21.0-32.0 [facility] Work Phone: Urea nitrogen/Creatinine [Mass ratio] 16.3 mg/mg 10-20 [facility] Work Phone: No Panel Informationon 03-29 Estimated Creatinine Clearance Calc 42.35 ml/min [facility] Work Phone: Estimated GFR (MDRD) Amer 70 mL/min >60 [facility] Work Phone: Comment on above: GFR Calc Estimated GFR (MDRD) Non-Af Amer 58 mL/min >60 [facility] Work Phone: Comment on above: Non- GFR Calc Serum or plasma calcium tai urement (mass/volume)on 03-29-2022 Calcium [Mass/Vol] 9.5 mg/dL 8.5-10.1 [facility] Work Phone: Serum or plasma creatinine m easurement (mass/volume)on 03-29-2022 Creatinine [Mass/Vol] 1.04 mg/dL 0.55-1.02 [facility] Work Phone: Comment on above: The validity of the calculated GFR & GFRAA in patients over 70 years has not been determined. Clinical correlation is essential. Serum or plasma urea nitroge n measurement (mass/volume)on 03-29-2022 Urea nitrogen [Mass/Vol] 17 mg/dL 7-18 [facility] Work Phone: Thin prep Papanicolaou smear with manual screeningon 03-29-2022 Thin prep Papanicolaou smear with manual screening 9 5-15 [facility] Work Phone: Absolute lymphocyte counton 03-26-2022 Lymphocytes Auto (Unsp spec) [#/Vol] 2.14 10*3/uL 0.83-4.51 [facility] Work Phone: Basophil percentageon 2021 Basophils/100 WBC (Bld) 0.6 % 0-1 [facility] Work Phone: Eosinophils/100 WBC (Bld) 1.4 % 0-5 [facility] Work Phone: Neutrophils (Bld) [#/Vol] 4.2 10*3/uL 2.0-7.7 [facility] Work Phone: Neutrophils/100 WBC (Bld) 60.0 % 47-70 [facility] Work Phone: WBC (Bld) [#/Vol] 7.0 10*3/uL 4.4-11.0 [facility] Work Phone: Blood erythrocytes count (nu mber/volume)on 03-26-2022 RBC (Bld) [#/Vol] 3.48 10*6/uL 4.2-5.4 [facility] Work Phone: Blood hemoglobin measurement (mass/volume)on 03-26-2022 Hemoglobin (Bld) [Mass/Vol] 10.6 g/dL 12.0-15.0 [facility] Work Phone: Blood lymphocytes/100 leukoc yteson 03-26-2022 Lymphocytes/100 WBC (Bld) 30.7 % 19-41 [facility] Work Phone: Blood monocytes/100 leukocyt eson 03-26-2022 Monocytes/100 WBC (Bld) 6.3 % 0-10 [facility] Work Phone: Blood platelet mean volumeon 03-26-2022 Platelet mean volume (Bld) [Entitic vol] 10.3 fL 6.2-12.0 [facility] Work Phone: Determination of erythrocyte mean corpuscular volume (MCV)on 03-26-2022 MCV (RBC) [Entitic vol] 92.8 fL 81-99 [facility] Work Phone: Hematocrit Auto (Bld) [Volum e fraction]on 03-26-2022 Hematocrit (Bld) [Volume fraction] 32.3 % 37-47 [facility] Work Phone: Laboratory - Hematology and Cell countson 03-26-2022 Erythrocyte distribution width (RBC) [Entitic vol] 45.7 fL 35.1-43.9 [facility] Work Phone: Erythrocyte distribution width (RBC) [Ratio] 13.5 % 11.6-14.6 [facility] Work Phone: Immature granulocytes/100 WBC (Bld) 1.000 % 0.0-0.9 [facility] Work Phone: Comment on above: IG% - Immature Granu locytes (promyelocytes, myelocytes and metamyelocytes) > 1% indicates that a LEFT SHIFT is Present. MCH (RBC) [Entitic mass] 30.5 pg 27.0-32.0 [facility] Work Phone: Nucleated RBC/100 WBC (Bld) [Ratio] 0 % 0-5 [facility] Work Phone: MCHC Auto (RBC) [Mass/Vol]on 03-26-2022 MCHC (RBC) [Mass/Vol] 32.8 g/dL 32-36 [facility] Work Phone: Platelets bldon 03-26-2022 Platelets (Bld) [#/Vol] 249 10*3/uL 150-450 [facility] Work Phone: Basophil percentageon 2021 Bilirubin [Mass/Vol] 0.40 mg/dL 0.20-1.00 [facility] Work Phone: Comment on above: For patients on eltr ombopag therapy, use of Dimension [place] TBIL is not recommended. Protein [Mass/Vol] 6.6 g/dL 6.4-8.2 [facility] Work Phone: Laboratory - Chemistry and C hemistry - challengeon 03-24-2022 ALP [Catalytic activity/Vol] 72 U/L 45-117 [facility] Work Phone: ALT [Catalytic activity/Vol] 56 U/L 13-56 [facility] Work Phone: Globulin (S) [Mass/Vol] 3.7 g/dL 2.2-4.2 [facility] Work Phone: Serum or plasma albumin tai urement (mass/volume)on 03-24-2022 Albumin [Mass/Vol] 2.9 g/dL 3.2-5.0 [facility] Work Phone: [phone] Serum or plasma albumin/glob ulin mass ratioon 03-24-2022 Albumin/Globulin [Mass ratio] 0.8 {ratio} 0.9-2.4 [facility] Work Phone: Thin prep Papanicolaou smear with manual screeningon 03-24-2022 Thin prep Papanicolaou smear with manual screening 62 U/L 15-37 [facility] Work Phone: Laboratory - Chemistry and C hemistry - challengeon 03-21-2022 Magnesium [Mass/Vol] 2.0 mg/dL 1.6-2.6 [facility] Work Phone: Absolute lymphocyte counton 03-20-2022 Lymphocytes Auto (Unsp spec) [#/Vol] 2.56 10*3/uL 0.83-4.51 [facility] Work Phone: Basophil percentageon 2021 Basophil percentage 25-50 SEEN /hpf 0-5 [facility] Work Phone: Basophils/100 WBC (Bld) 0.6 % 0-1 [facility] Work Phone: Chloride [Moles/Vol] 91 mmol/L 98-107 [facility] Work Phone: Eosinophils/100 WBC (Bld) 0.4 % 0-5 [facility] Work Phone: Glucose [Mass/Vol] 489 mg/dL 74-106 [facility] Work Phone: Comment on above: Glucose result great er than or equal to 200 mg/dLsuggests DIABETES MELLITUS per A.D.A. criteria. Neutrophils (Bld) [#/Vol] 3.8 10*3/uL 2.0-7.7 [facility] Work Phone: Neutrophils/100 WBC (Bld) 56.5 % 47-70 [facility] Work Phone: [phone] Potassium [Moles/Vol] 3.6 mmol/L 3.5-5.1 [facility] Work Phone: Sodium [Moles/Vol] 128 mmol/L 136-145 [facility] Work Phone: WBC (Bld) [#/Vol] 6.8 10*3/uL 4.4-11.0 [facility] Work Phone: Bilirubin Test strip Ql (U)o n 03-20-2022 Bilirubin Ql (U) Negative Negative [facility] Work Phone: Blood erythrocytes count (nu mber/volume)on 03-20-2022 RBC (Bld) [#/Vol] 4.08 10*6/uL 4.2-5.4 [facility] Work Phone: Blood hemoglobin measurement (mass/volume)on 03-20-2022 Hemoglobin (Bld) [Mass/Vol] 12.9 g/dL 12.0-15.0 [facility] Work Phone: Blood lymphocytes/100 leukoc yteson 03-20-2022 Lymphocytes/100 WBC (Bld) 37.6 % 19-41 [facility] Work Phone: Blood monocytes/100 leukocyt eson 03-20-2022 Monocytes/100 WBC (Bld) 4.3 % 0-10 [facility] Work Phone: Blood platelet mean volumeon 03-20-2022 Platelet mean volume (Bld) [Entitic vol] 9.7 fL 6.2-12.0 [facility] Work Phone: Determination of erythrocyte mean corpuscular volume (MCV)on 03-20-2022 MCV (RBC) [Entitic vol] 87.0 fL 81-99 [facility] Work Phone: Glucose Glucometer (BldC) [M ass/Vol]on 03-20-2022 Glucose [Mass/Vol] 420 mg/dL 74-106 [facility] Work Phone: Comment on above: MANAGEMENT OF PATIEN T CARE PER NURSING PROTOCOL Hematocrit Auto (Bld) [Volum e fraction]on 03-20-2022 Hematocrit (Bld) [Volume fraction] 35.5 % 37-47 [facility] Work Phone: Ketones Test strip Ql (U)on 03-20-2022 Ketones Ql (U) Negative Negative [facility] Work Phone: Laboratory - Chemistry and C hemistry - challengeon 03-20-2022 CO2 [Moles/Vol] 27.0 mmol/L 21.0-32.0 [facility] Work Phone: Urea nitrogen/Creatinine [Mass ratio] 11.0 mg/mg 10-20 [facility] Work Phone: Laboratory - Hematology and Cell countson 03-20-2022 Erythrocyte distribution width (RBC) [Entitic vol] 41.2 fL 35.1-43.9 [facility] Work Phone: Erythrocyte distribution width (RBC) [Ratio] 13.0 % 11.6-14.6 [facility] Work Phone: Immature granulocytes/100 WBC (Bld) 0.600 % 0.0-0.9 [facility] Work Phone: Comment on above: IG% - Immature Granu locytes (promyelocytes, myelocytes and metamyelocytes) > 1% indicates that a LEFT SHIFT is Present. MCH (RBC) [Entitic mass] 31.6 pg 27.0-32.0 [facility] Work Phone: Nucleated RBC/100 WBC (Bld) [Ratio] 0 % 0-5 [facility] Work Phone: MCHC Auto (RBC) [Mass/Vol]on 03-20-2022 MCHC (RBC) [Mass/Vol] 36.3 g/dL 32-36 [facility] Work Phone: Mucus LM Ql (Urine sed)on Mucus Ql (Urine sed) 0 SEEN /hpf [facility] Work Phone: Nitrite Test strip Ql (U)on 03-20-2022 Nitrite Ql (U) Negative Negative [facility] Work Phone: No Panel Informationon 03-20 Estimated Creatinine Clearance Calc 34.68 ml/min [facility] Work Phone: Estimated GFR (MDRD) Amer 56 mL/min >60 [facility] Work Phone: Comment on above: GFR Calc Estimated GFR (MDRD) Non-Af Amer 46 mL/min >60 [facility] Work Phone: Comment on above: Non- GFR Calc Platelets bldon 03-20-2022 Platelets (Bld) [#/Vol] 263 10*3/uL 150-450 [facility] Work Phone: Protein Test strip Ql (U)on 03-20-2022 Protein Ql (U) 30 mg/dl Negative [facility] Work Phone: Serum or plasma calcium tai urement (mass/volume)on 03-20-2022 Calcium [Mass/Vol] 9.1 mg/dL 8.5-10.1 [facility] Work Phone: Serum or plasma creatinine m easurement (mass/volume)on 03-20-2022 Creatinine [Mass/Vol] 1.27 mg/dL 0.55-1.02 [facility] Work Phone: Comment on above: The validity of the calculated GFR & GFRAA in patients over 70 years has not been determined. Clinical correlation is essential. Serum or plasma urea nitroge n measurement (mass/volume)on 03-20-2022 Urea nitrogen [Mass/Vol] 14 mg/dL 7-18 [facility] Work Phone: Squamous epithelial cells de tection in urine sediment by light microscopyon 03-20-2022 Epithelial cells.squamous LM Ql (Urine sed) 5-10 SEEN /hpf 5-10 [facility] Work Phone: Thin prep Papanicolaou smear with manual screeningon 03-20-2022 Thin prep Papanicolaou smear with manual screening 10 5-15 [facility] Work Phone: Urine blood detectionon 02-23 RBC Ql (U) 10 /ul Negative [facility] Work Phone: RBC Ql (U) 0 SEEN /hpf 0-5 [facility] Work Phone: Urine clarityon 03-20-2022 Clarity (U) Clear Clear [facility] Work Phone: Urine color determinationon 03-20-2022 Color (U) Yellow Yellow [facility] Work Phone: Urine glucose detectionon Glucose Ql (U) 1000 mg/dl Normal [facility] Work Phone: Urine leukocyte esterase det ection by dipstickon 03-20-2022 Leukocyte esterase Test strip Ql (U) 100 /ul Negative [facility] Work Phone: Urine pHon 03-20-2022 pH (U) 6.0 [pH] 5.0 - 8.0 [facility] Work Phone: Urine sediment bacteria coun t by microscopy (number/high power field)on 03-20-2022 Bacteria LM.HPF (Urine sed) [#/Area] 2 /[HPF] None Seen [facility] Work Phone: Urine specific gravity measu rementon 03-20-2022 Specific gravity (U) [Rel density] 1.015 1.002-1.03 0 [facility] Work Phone: Urobilinogen Auto test strip Ql (U)on 03-20-2022 Urobilinogen Ql (U) Normal mg/dl Normal [facility] Work Phone: Whole blood hemoglobin A1c/t otal hemoglobin ratio (mass fraction)on 03-20-2022 HbA1c (Bld) [Mass fraction] 13.1 % 3.8-5.6 [facility] Work Phone: Comment on above: Normal < 5.7 % Predi abetic 5.7 - 6.4 % Diabetic >or= 6.5 % Please note range changes. Absolute lymphocyte counton 02-24-2022 Lymphocytes Auto (Unsp spec) [#/Vol] 1.98 10*3/uL 0.83-4.51 [facility] Work Phone: Basophil percentageon 2021 Basophils/100 WBC (Bld) 0.8 % 0-1 [facility] Work Phone: Bilirubin [Mass/Vol] 0.50 mg/dL 0.20-1.00 [facility] Work Phone: Comment on above: For patients on eltr ombopag therapy, use of Dimension [place] TBIL is not recommended. Chloride [Moles/Vol] 87 mmol/L 98-107 [facility] Work Phone: Eosinophils/100 WBC (Bld) 0.2 % 0-5 [facility] Work Phone: Glucose [Mass/Vol] 569 mg/dL 74-106 [facility] Work Phone: Comment on above: Critical Result(s) C alled at: 14:47:48 02/24/2022 by: Juana Delacruz. Results read back by same.Glucose result greater than or equal to 200 mg/dLsuggests DIABETES MELLITUS per A.D.A. criteria. Neutrophils (Bld) [#/Vol] 3.9 10*3/uL 2.0-7.7 [facility] Work Phone: Neutrophils/100 WBC (Bld) 62.4 % 47-70 [facility] Work Phone: Potassium [Moles/Vol] 3.8 mmol/L 3.5-5.1 [facility] Work Phone: Protein [Mass/Vol] 7.6 g/dL 6.4-8.2 [facility] Work Phone: Sodium [Moles/Vol] 127 mmol/L 136-145 [facility] Work Phone: WBC (Bld) [#/Vol] 6.3 10*3/uL 4.4-11.0 [facility] Work Phone: Blood erythrocytes count (nu mber/volume)on 02-24-2022 RBC (Bld) [#/Vol] 4.08 10*6/uL 4.2-5.4 [facility] Work [facility]: Blood hemoglobin measurement (mass/volume)on 02-24-2022 Hemoglobin (Bld) [Mass/Vol] 12.7 g/dL 12.0-15.0 [facility] Work Phone: Blood lymphocytes/100 leukoc yteson 02-24-2022 Lymphocytes/100 WBC (Bld) 31.4 % 19-41 [facility] Work Phone: Blood monocytes/100 leukocyt eson 02-24-2022 Monocytes/100 WBC (Bld) 4.4 % 0-10 [facility] Work Phone: Blood platelet mean volumeon 02-24-2022 Platelet mean volume (Bld) [Entitic vol] 9.7 fL 6.2-12.0 [facility] Work Phone: Determination of erythrocyte mean corpuscular volume (MCV)on 02-24-2022 MCV (RBC) [Entitic vol] 88.0 fL 81-99 [facility] Work Phone: Glucose Glucometer (BldC) [M ass/Vol]on 02-24-2022 Glucose [Mass/Vol] 407 mg/dL 74-106 [facility] Work Phone: Comment on above: MANAGEMENT OF PATIEN T CARE PER NURSING PROTOCOL Hematocrit Auto (Bld) [Volum e fraction]on 02-24-2022 Hematocrit (Bld) [Volume fraction] 35.9 % 37-47 [facility] Work Phone: Laboratory - Chemistry and C hemistry - challengeon 02-24-2022 ALP [Catalytic activity/Vol] 93 U/L 45-117 [facility] Work Phone: ALT [Catalytic activity/Vol] 56 U/L 13-56 [facility] Work Phone: CO2 [Moles/Vol] 27.0 mmol/L 21.0-32.0 [facility] Work Phone: Globulin (S) [Mass/Vol] 4.0 g/dL 2.2-4.2 [facility] Work Phone: Urea nitrogen/Creatinine [Mass ratio] 8.1 mg/mg 10-20 [facility] Work Phone: Laboratory - Hematology and Cell countson 02-24-2022 Erythrocyte distribution width (RBC) [Entitic vol] 44.8 fL 35.1-43.9 [facility] Work Phone: Erythrocyte distribution width (RBC) [Ratio] 14.0 % 11.6-14.6 [facility] Work Phone: Immature granulocytes/100 WBC (Bld) 0.800 % 0.0-0.9 [facility] Work Phone: Comment on above: IG% - Immature Granu locytes (promyelocytes, myelocytes and metamyelocytes) > 1% indicates that a LEFT SHIFT is Present. MCH (RBC) [Entitic mass] 31.1 pg 27.0-32.0 [facility] Work Phone: Nucleated RBC/100 WBC (Bld) [Ratio] 0 % 0-5 [facility] Work Phone: MCHC Auto (RBC) [Mass/Vol]on 02-24-2022 MCHC (RBC) [Mass/Vol] 35.4 g/dL 32-36 [facility] Work Phone: No Panel Informationon 02-24 Estimated Creatinine Clearance Calc 29.76 ml/min [facility] Work Phone: Estimated GFR (MDRD) Amer 47 mL/min >60 [facility] Work Phone: Comment on above: GFR Calc Estimated GFR (MDRD) Non-Af Amer 38 mL/min >60 [facility] Work Phone: Comment on above: Non- GFR Calc Platelets bldon 02-24-2022 Platelets (Bld) [#/Vol] 231 10*3/uL 150-450 [facility] Work Phone: Serum or plasma albumin tai urement (mass/volume)on 02-24-2022 Albumin [Mass/Vol] 3.6 g/dL 3.2-5.0 [facility] Work Phone: Serum or plasma albumin/glob ulin mass ratioon 02-24-2022 Albumin/Globulin [Mass ratio] 0.9 {ratio} 0.9-2.4 [facility] Work Phone: Serum or plasma calcium tai urement (mass/volume)on 02-24-2022 Calcium [Mass/Vol] 8.3 mg/dL 8.5-10.1 [facility] Work Phone: Serum or plasma creatinine m easurement (mass/volume)on 02-24-2022 Creatinine [Mass/Vol] 1.48 mg/dL 0.55-1.02 [facility] Work Phone: Comment on above: The validity of the calculated GFR & GFRAA in patients over 70 years has not been determined. Clinical correlation is essential. Serum or plasma urea nitroge n measurement (mass/volume)on 02-24-2022 Urea nitrogen [Mass/Vol] 12 mg/dL 7-18 [facility] Work Phone: Thin prep Papanicolaou smear with manual screeningon 02-24-2022 Thin prep Papanicolaou smear with manual screening 45 U/L 15-37 [facility] Work Phone: Thin prep Papanicolaou smear with manual screening 13 5-15 [facility] Work Phone: Absolute lymphocyte counton 01-13-2022 Lymphocytes Auto (Unsp spec) [#/Vol] 2.40 10*3/uL 0.83-4.51 [facility] Work Phone: Amorphous sediment detection in urine sediment by light microscopyon 01-13-2022 Amorphous sediment LM Ql (Urine sed) 1+ URATE [facility] Work Phone: Basophil percentageon 2021 Basophil percentage 25-50 SEEN /hpf 0-5 [facility] Work Phone: Basophils/100 WBC (Bld) 0.4 % 0-1 [facility] Work Phone: Chloride [Moles/Vol] 89 mmol/L 98-107 [facility] Work Phone: Eosinophils/100 WBC (Bld) 0.3 % 0-5 [facility] Work Phone: Glucose [Mass/Vol] 496 mg/dL 74-106 [facility] Work Phone: Comment on above: Glucose result great er than or equal to 200 mg/dLsuggests DIABETES MELLITUS per A.D.A. criteria. Neutrophils (Bld) [#/Vol] 4.8 10*3/uL 2.0-7.7 [facility] Work Phone: Neutrophils/100 WBC (Bld) 63.1 % 47-70 [facility] Work Phone: [phone] Potassium [Moles/Vol] 4.2 mmol/L 3.5-5.1 [facility] Work Phone: Sodium [Moles/Vol] 126 mmol/L 136-145 [facility] Work Phone: Comment on above: Critical Result(s) C alled at: 15:44:11 01/13/2022 by: AUSTYN ESTRELLA. to debra lynch rn ed Results read back by same. WBC (Bld) [#/Vol] 7.6 10*3/uL 4.4-11.0 [facility] Work Phone: Bilirubin Test strip Ql (U)o n 01-13-2022 Bilirubin Ql (U) Negative Negative [facility] Work Phone: Blood erythrocytes count (nu mber/volume)on 01-13-2022 RBC (Bld) [#/Vol] 4.55 10*6/uL 4.2-5.4 [facility] Work Phone: Blood hemoglobin measurement (mass/volume)on 01-13-2022 Hemoglobin (Bld) [Mass/Vol] 14.0 g/dL 12.0-15.0 [facility] Work Phone: Blood lymphocytes/100 leukoc yteson 01-13-2022 Lymphocytes/100 WBC (Bld) 31.7 % 19-41 [facility] Work Phone: Blood monocytes/100 leukocyt eson 01-13-2022 Monocytes/100 WBC (Bld) 4.0 % 0-10 [facility] Work Phone: Blood platelet mean volumeon 01-13-2022 Platelet mean volume (Bld) [Entitic vol] 9.8 fL 6.2-12.0 [facility] Work Phone: Culture, urineon 01-13-2022 Bacteria identified Cx Nom (U) Negative [facility] Work Phone: Bacteria identified Cx Nom (U) Mixed Gram Pos & Gram Neg Org [facility] Work Phone: Determination of erythrocyte mean corpuscular volume (MCV)on 01-13-2022 MCV (RBC) [Entitic vol] 82.6 fL 81-99 [facility] Work Phone: Glucose Glucometer (BldC) [M ass/Vol]on 01-13-2022 Glucose [Mass/Vol] 361 mg/dL 74-106 [facility] Work Phone: Comment on above: MANAGEMENT OF PATIEN T CARE PER NURSING PROTOCOL Hematocrit Auto (Bld) [Volum e fraction]on 01-13-2022 Hematocrit (Bld) [Volume fraction] 37.6 % 37-47 [facility] Work Phone: Ketones Test strip Ql (U)on 01-13-2022 Ketones Ql (U) Negative Negative [facility] Work Phone: Laboratory - Chemistry and C hemistry - challengeon 01-13-2022 CO2 [Moles/Vol] 28.0 mmol/L 21.0-32.0 [facility] Work Phone: Urea nitrogen/Creatinine [Mass ratio] 11.5 mg/mg 10-20 [facility] Work Phone: Laboratory - Hematology and Cell countson 01-13-2022 Erythrocyte distribution width (RBC) [Entitic vol] 42.2 fL 35.1-43.9 [facility] Work Phone: Erythrocyte distribution width (RBC) [Ratio] 14.0 % 11.6-14.6 [facility] Work Phone: Immature granulocytes/100 WBC (Bld) 0.500 % 0.0-0.9 [facility] Work Phone: Comment on above: IG% - Immature Granu locytes (promyelocytes, myelocytes and metamyelocytes) > 1% indicates that a LEFT SHIFT is Present. MCH (RBC) [Entitic mass] 30.8 pg 27.0-32.0 [facility] Work Phone: Nucleated RBC/100 WBC (Bld) [Ratio] 0 % 0-5 [facility] Work Phone: MCHC Auto (RBC) [Mass/Vol]on 01-13-2022 MCHC (RBC) [Mass/Vol] 37.2 g/dL 32-36 [facility] Work Phone: Mucus LM Ql (Urine sed)on Mucus Ql (Urine sed) 0 SEEN /hpf [facility] Work Phone: Nitrite Test strip Ql (U)on 01-13-2022 Nitrite Ql (U) Negative Negative [facility] Work Phone: No Panel Informationon 01-13 Estimated Creatinine Clearance Calc 28.06 ml/min [facility] Work Phone: Estimated GFR (MDRD) Amer 43 mL/min >60 [facility] Work Phone: Comment on above: GFR Calc Estimated GFR (MDRD) Non-Af Amer 36 mL/min >60 [facility] Work Phone: Comment on above: Non- GFR Calc Insulin Level 32.1 mU/L 2.6-37.6 [facility] Work Phone: Comment on above: Please Note: INSULIN METHOD & REFERENCE RANGE CHANGEEffective 11/04/2017. Platelets bldon 01-13-2022 Platelets (Bld) [#/Vol] 267 10*3/uL 150-450 [facility] Work Phone: Protein Test strip Ql (U)on 01-13-2022 Protein Ql (U) 30 mg/dl Negative [facility] Work Phone: Serum or plasma acetone tai urement (mass/volume)on 01-13-2022 Acetone [Mass/Vol] Negative NEG [facility] Work Phone: Serum or plasma calcium tai urement (mass/volume)on 01-13-2022 Calcium [Mass/Vol] 9.8 mg/dL 8.5-10.1 [facility] Work Phone: Serum or plasma creatinine m easurement (mass/volume)on 01-13-2022 Creatinine [Mass/Vol] 1.57 mg/dL 0.55-1.02 [facility] Work Phone: Comment on above: The validity of the calculated GFR & GFRAA in patients over 70 years has not been determined. Clinical correlation is essential. Serum or plasma urea nitroge n measurement (mass/volume)on 01-13-2022 Urea nitrogen [Mass/Vol] 18 mg/dL 7-18 [facility] Work Phone: Squamous epithelial cells de tection in urine sediment by light microscopyon 01-13-2022 Epithelial cells.squamous LM Ql (Urine sed) 0-5 SEEN /hpf 5-10 [facility] Work Phone: Thin prep Papanicolaou smear with manual screeningon 01-13-2022 Thin prep Papanicolaou smear with manual screening 9 5-15 [facility] Work Phone: Urine blood detectionon 12-24 RBC Ql (U) 10 /ul Negative [facility] Work Phone: RBC Ql (U) 0-5 SEEN /hpf 0-5 [facility] Work Phone: Urine clarityon 01-13-2022 Clarity (U) Sl. Cloudy Clear [facility] Work Phone: Urine color determinationon 01-13-2022 Color (U) Yellow Yellow [facility] Work Phone: Urine glucose detectionon Glucose Ql (U) 1000 mg/dl Normal [facility] Work Phone: Urine leukocyte esterase det ection by dipstickon 01-13-2022 Leukocyte esterase Test strip Ql (U) 500 /ul Negative [facility] Work Phone: Urine pHon 01-13-2022 pH (U) 5.0 [pH] 5.0 - 8.0 [facility] Work Phone: Urine sediment bacteria coun t by microscopy (number/high power field)on 01-13-2022 Bacteria LM.HPF (Urine sed) [#/Area] 0 /[HPF] None Seen [facility] Work Phone: Urine specific gravity measu rementon 01-13-2022 Specific gravity (U) [Rel density] 1.015 1.002-1.03 0 [facility] Work Phone: Urobilinogen Auto test strip Ql (U)on 01-13-2022 Urobilinogen Ql (U) Normal mg/dl Normal [facility] Work Phone: Gram stain for investigation of transfusion reactionon 09-27-2021 Microscopic observation Gram stain Nom (Unsp spec) [facility] Work Phone: .Auto Diffon 12-13-2019 Ammonia (P) [Mass/Vol] 0.30 10 3/mcL Normal 0.15-1.00 [facility] ([place]) Comment on above: Performed By: #### Taco PEARCE, BMP #### [place] [address] #### CBC, ADIFF, ANEU #### [address] [address] Basophils (Bld) [#/Vol] 0.00 10 3/mcL Normal 0.00-0.19 [facility] ([place]) Comment on above: Performed By: #### Taco PEARCE, BMP #### [place] [address] #### CBC, ADIFF, ANEU #### [address] [address] Basophils/100 WBC (Bld) 0.5 % Normal 0.0-2.5 [facility] ([place]) Comment on above: Performed By: #### Taco FR, BMP #### [place] [address] #### CBC, ADIFF, ANEU #### [address] [address] Eosinophils (Bld) [#/Vol] 0.00 10 3/mcL Normal 0.00-0. 40 [facility] ([place]) Comment on above: Performed By: #### Taco FR, BMP #### [place] [address] #### CBC, ADIFF, ANEU #### [address] [address] Eosinophils/100 WBC (Bld) 0.8 % Normal 0.0-7.0 [facility] ([place]) Comment on above: Performed By: #### G FR, BMP #### [address] [address] #### CBC, ADIFF, ANEU #### [address] [address] Lymphocytes (Bld) [#/Vol] 2.00 10 3/mcL Normal 0.77-3. 85 [facility] ([place]) Comment on above: Performed By: #### G FR, BMP #### [place] [address] #### CBC, ADIFF, ANEU #### [address] [address] Lymphocytes/100 WBC (Bld) 33.6 % Normal 10.0-50.0 [facility] ([place]) Comment on above: Performed By: #### G FR, BMP #### [place] [address] #### CBC, ADIFF, ANEU #### [address] [address] Monocytes/100 WBC (Bld) 4.7 % Normal 1.7-13.0 A [facility] ([place]) Comment on above: Performed By: #### G FR, BMP #### [place] [address] #### CBC, ADIFF, ANEU #### [address] [address] Neutrophils/100 WBC (Bld) 60.4 % Normal 37.0-80.0 [facility] ([place]) Comment on above: Performed By: #### G FR, BMP #### [place] [address] #### CBC, ADIFF, ANEU #### [address] [address] .GFRon 12-13-2019 GFR 54 ml/min/1.73sqm Normal [facility] ([place]) Comment on above: Result Comment: GFR Population [...] Performed By: #### Taco FR, BMP #### [place] [address] #### BAILEY PIÑA, ANEU #### [address] [address] GFR Non- 45 ml/min/1.73sqm Normal [facility] ([place]) Comment on above: Result Comment: GFR Population [...] Performed By: #### G FR, BMP #### [place] [address] #### AYANA, BAILEY, ANEU #### [address] [address] .NEUABSon 12-13-2019 Neutrophils (Bld) [#/Vol] 3.50 10 3/mcL Normal 2.85-6. 16 [facility] ([place]) Comment on above: Performed By: #### Taco FR, BMP #### [address] [address] #### CBC, ADIFF, ANEU #### [address] [address] .Urinalysis Microscopic (AO) on 12-13-2019 RBC (U) [#/Vol] LOADED Abnormal None Seen [facility] ([place] Comment on above: Performed By: #### U AMICAO, UA #### [place] [address] UA Squam Epithelial 0-5 Abnormal None Seen [facility] ([place]) Comment on above: Performed By: #### U AMICAO, UA #### [place] [address] UA WBC 0-5 Abnormal None Seen [facility] ([place] Comment on above: Performed By: #### U AMICAO, UA #### [place] [address] BMPon 12-13-2019 Calcium [Mass/Vol] 9.2 mg/dL Normal 8.4-10.2 [facility] ([place]) Comment on above: Performed By: #### Taco FR, BMP #### [place] [address] #### CBC, ADIFF, ANEU #### [address] [address] Chloride [Moles/Vol] 90 mmol/L Low 98-107 [facility] ([place]) Comment on above: Performed By: #### G FR, BMP #### [place] [address] #### CBC, ADIFF, ANEU #### [address] [address] CO2 [Moles/Vol] 25 mmol/L Normal 22-29 [facility] ([place]) Comment on above: Performed By: #### G FR, BMP #### [place] [address] #### CBC, ADIFF, ANEU #### [address] [address] Creatinine [Mass/Vol] 1.24 mg/dL High 0.55-1.02 [facility] ([place]) Comment on above: Performed By: #### G FR, BMP #### [place] [address] #### CBC, ADIFF, ANEU #### [address] [address] Electrolyte Balance 11.0 mEq/L Normal [facility] ([place] Comment on above: Performed By: #### G FR, BMP #### [place] [address] #### CBC, ADIFF, ANEU #### [address] [address] Glucose [Mass/Vol] 697 mg/dL Critically abnormal 70-105 [facility] ([place]) Comment on above: Performed By: #### Taco FR, BMP #### [place] [address] #### CBC, ADIFF, ANEU #### [address] [address] Potassium [Moles/Vol] 4.0 mmol/L Normal 3.5-5.1 [facility] ([place]) Comment on above: Performed By: #### Taco FR, BMP #### [place] [address] #### CBC, ADIFF, ANEU #### [address] [address] Sodium [Moles/Vol] 126 mmol/L Low 136-145 [facility] ([place]) Comment on above: Performed By: #### G FR, BMP #### [place] [address] #### CBC, ADIFF, ANEU #### [address] [address] Urea nitrogen [Mass/Vol] 17 mg/dL Normal 7-18 [facility] ([place]) Comment on above: Performed By: #### G FR, BMP #### [place] [address] #### CBC, ADIFF, ANEU #### [address] [address] Urea nitrogen/Creatinine [Mass ratio] 14 ratio Normal 7-27 [facility] ([place]) Comment on above: Performed By: #### G FR, BMP #### [address] [address] #### CBC, ADIFF, ANEU #### [address] [address] CBCon 12-13-2019 Erythrocyte distribution width (RBC) [Ratio] 12.7 % Normal 11.5-14.5 [facility] ([place]) Comment on above: Performed By: #### Taco FR, BMP #### [place] [address] #### CBC, ADIFF, ANEU #### [address] [address] Hematocrit (Bld) [Volume fraction] 41.3 % Normal 37.0-47.0 [facility] ([place]) Comment on above: Performed By: #### Taco FR, BMP #### [place] [address] #### CBC, ADIFF, ANEU #### [address] [address] Hemoglobin (Bld) [Mass/Vol] 13.9 G/dL Normal 12.0-16.0 [facility] ([place]) Comment on above: Performed By: #### G FR, BMP #### [place] [address] #### CBC, ADIFF, ANEU #### [address] [address] MCH (RBC) [Entitic mass] 30.5 pg Normal 27.0-31.2 [facility] ([place]) Comment on above: Performed By: #### G FR, BMP #### [place] [address] #### CBC, ADIFF, ANEU #### [address] [address] MCHC (RBC) [Mass/Vol] 33.7 G/dL Normal 33.0-37.0 [facility] ([place]) Comment on above: Performed By: #### G FR, BMP #### [address] [address] #### CBC, ADIFF, ANEU #### [address] [address] MCV (RBC) [Entitic vol] 90.5 fL Normal 80.0-94.0 A [facility] ([place]) Comment on above: Performed By: #### Taco FR, BMP #### [place] [address] #### CBC, ADIFF, ANEU #### [address] [address] Platelet mean volume (Bld) [Entitic vol] 7.9 fL Normal 7.4-10.4 [facility] ([place]) Comment on above: Performed By: #### Taco FR, BMP #### [place] [address] #### CBC, ADIFF, ANEU #### [address] [address] Platelets (Bld) [#/Vol] 216 10 3/mcL Normal 130-400 [facility] ([place]) Comment on above: Performed By: #### Taco FR, BMP #### [place] [address] #### CBC, ADIFF, ANEU #### [address] [address] RBC (Bld) [#/Vol] 4.56 10 6/mcL Normal 4.20-5.40 [facility] ([place]) Comment on above: Performed By: #### G FR, BMP #### [place] [address] #### CBC, ADIFF, ANEU #### [address] [address] WBC (Bld) [#/Vol] 5.80 10 3/mcL Normal 4.60-10.80 [facility] ([place]) Comment on above: Performed By: #### G FR, BMP #### [address] [address] #### CBC, ADLANDY, ANEU #### [place] [address] [place], [place] [address] CT ABDOMEN/PELVIS W/O CONTRA STon 12-13-2019 CT [...] 12/13/2019 3:36:55 PM Ordering Provider:Fermin Turner Normal [facility] ([place]) UAbe 12-13-2019 Color (U) Light yellow Normal [facility] ([place]) Comment on above: Performed By: #### U JEREMI HOGAN #### [facility] [address] [place] [address] Glucose (U) [Mass/Vol] 500 mg/dL Abnormal Negative [facility] ([place]) Comment on above: Performed By: #### U AMICAO, UA #### [facility] [address] [place] [address] Ketones Ql (U) Negative Normal Negative [facility] ([place] Comment on above: Performed By: #### U AMICAO, UA #### [facility] [address] [place] [address] UA Appear Slightly Cloudy Abnormal Clear [facility] ([place]) Comment on above: Performed By: #### U AMICAO, UA #### [facility] [address] [place] [address] UA Blood Large Abnormal Negative [facility] ([place]) Comment on above: Performed By: #### U AMICAO, UA #### [place] [address] UA Leuk Est Negative Normal Negative [facility] ([place] Comment on above: Performed By: #### U AMICAO, UA #### [place] [address] UA Nitrite Negative Normal Negative [facility] ([place] Comment on above: Performed By: #### U AMICAO, UA #### [place] [address] UA pH 5.0 Normal 5.0 - 8.0 [facility] ([place]) Comment on above: Performed By: #### U AMICAO, UA #### [place] [address] UA Protein Negative Normal Negative [facility] ([place] Comment on above: Performed By: #### U AMICAO, UA #### [place] [address] UA Spec Grav <=1.005 Abnormal 1.015-1.02 5 [facility] ([place]) Comment on above: Performed By: #### U AMICAO, UA #### [place] [address] UA Specimen Type Clean Catch Normal [facility] ([place]) Comment on above: Performed By: #### U AMICAO, UA #### [place] [address] UA Urobilinogen 0.2 E.U./dL Normal 0.2-1.0 [facility] ([place]) Comment on above: Performed By: #### U ALFONSOJEREMI Conn #### [facility] [address] [place], [place] [id number] Urobilinogen Qn (U) Negative Normal Negative [facility] ([place]) Comment on above: Performed By: #### U SAMIRA UA #### [facility] [address] [place] [address] [facility] CNPN Telephone (PREANME) TERRANCE BRAR ([id number]) 1965 F Date Time Provider Department 09/05/19 CAITY BURDEN ([employer]) PREANME During your visit today, we recorded the following information about you: Caity Burden APRN.CAMERA SUPERVISOR 09/05/2019 9:53 AM Signed Notifying surgeon's office and PCP, pt's pre-op A1c 14.4. Pt is a IDDM, last A1c 13.0 07/13/2019. Please advise. She is scheduled for LAPAROSCOPIC INCISIONAL RECURRENT HERNIA REPAIR W/ MESH REDUCIBLE ADULT With Dr. Dee 09/11/2019. Caity Burden APRN.CAMERA SUPERVISOR 09/05/2019 9:59 AM Signed Also noted to be have TSH level of 38.7, calcium 11.4, sodium 130. Coco Nur CMA, SARITA 09/05/2019 10:20 AM Addendum Patient was discharged from practice due to many no shows. She no longer has a PCP. See phone encounter on 07/05/2019. BESSIE No APRN.CAMERA SUPERVISOR 09/05/2019 2:46 PM Signed Spoke with pt [...] surgery. Controlling her diabetes mellitus will require senior living commitment on her part to keep appointments, [...] to how this appt can occur in [facility] Carlee Valencia III MD Allergies As [...] 12/07/2008 More... Routine General Medical Examination at [facility]*12/10/2008 06/03/2015 More... Benign neoplasm of colon [D12.6] [...] Status:Closed by [facility] NUR CMA on 09/11/19 [facility] CNCOon 03-11-2018 CNCO Letter Text [facility] [address] [facility] [address]Wmof: [phone] Vhwedbj E. Shafer, [facility] [address]Terrance Brar[address] [facility] [id number]/Dear Terrance Brar,We missed seeing you for your scheduled appointment with Dr. Calixto on03/08/18 at the [facility].Our goal is to offer the best possible care to our patients, so we areconcerned when you are unable to keep a scheduled appointment.Please call us at [phone] so that we can reschedule your appointment fora day and time that will work for you.If you find it difficult to keep your appointment, please notify our officeat least 24 hours in advance so that we may reschedule your appointment.We are glad that you have chosen [facility] for yourcardiovascular needs and hope to continue serving you in the future.Sincerely,Mary Alice Calixto MD(Signed electronically to expedite mailing) Normal [facility] Office Visit: UC: Luke HAIR, yesica lemons 07-28-2017 Fall risk assessment No Invalid Interpretation Code [facility] Work Phone: Protein mass conc yes Invalid Interpretation Code [facility] Work Phone: Protein mass conc Done Invalid Interpretation Code [facility] Work Phone: Tobacco smoking status NHIS Current every day smoker Invalid Interpretation Code [facility] Work Phone: Lab Report: Culture, Urineon 02-22-2015 CUUR . Invalid Interpretation Code [facility] Work Phone: Lab Report: (P) Urinalysis, Completeon 02-20-2015 Specific gravity Refractometry Relative Density (U) 1.015 Invalid Interpretation Code 1.002-1.03 0 [facility] Work Phone: Lab Report: BNP,B-Type NATRI URETIC PEPTIDEon 02-20-2015 Natriuretic peptide B mass conc (Bld) 8.6 pg/mL Invalid Interpretation Code 0-100 [facility] Work Phone: Lab Report: Basic Metabolic Profile (BMP)on 02-20-2015 Anion gap 4 molar conc 9 Invalid Interpretation Code 5-15 [facility] Work Phone: Calcium mass conc 8.3 mg/dL Low 8.5-10.1 [facility] Work Phone: Chloride molar conc 100 mmol/L Invalid Interpretation Code 98-107 [facility] Work Phone: CO2 ppres (BldV) 27.0 mmol/L Invalid Interpretation Code 21.0-32.0 [facility] Work Phone: Creatinine mass conc 1.2 mg/dL High 0.6-1.0 [facility] Work Phone: EST GFR - AA 61 mL/min Invalid Interpretation Code >60 [facility] Work Phone: GFR/1.73 sq M predicted among non-blacks MDRD vol rate/area (S/P/Bld) 50 mL/min/{1.73_m2} Low >60 [facility] Work Phone: Glucose mass conc 170 mg/dL High 70-110 [facility] Work Phone: [phone] Potassium molar conc 3.3 mmol/L Low 3.5-5.1 [facility] Work Phone: [phone] Sodium molar conc 136 mmol/L Invalid Interpretation Code 136-145 [facility] Work Phone: Urea nitrogen mass conc 10 mg/dL Invalid Interpretation Code 7-18 [facility] Work Phone: Urea nitrogen/Creatinine mass ratio 8.3 RATIO Low 10-20 [facility] Work Phone: Lab Report: CBC W/Diff, Auto matedon 02-20-2015 Absolute Neut 5.3 X10 3/UL Invalid Interpretation Code 2.0-7.7 [facility] Work Phone: Basophils/100 WBC Auto (Bld) 0.5 % Invalid Interpretation Code 0-1 [facility] Work Phone: Eosinophils/100 WBC Auto (Bld) 1.5 % Invalid Interpretation Code 0-5 [facility] Work Phone: Erythrocyte distribution width Auto Ratio (RBC) 47.5 fL High 35.1-43.9 [facility] Work Phone: [phone] Hematocrit Auto Volume Fraction (Bld) 36.1 % Low 37-47 [facility] Work Phone: Hemoglobin mass conc (Bld) 11.5 g/dL Low 12.0-15.0 [facility] Work Phone: [phone] Lymphocytes Auto #/vol (Bld) 1.54 X10 3/UL Invalid Interpretation Code 0.83-4.51 [facility] Work Phone: Lymphocytes/100 WBC Auto (Bld) 20.7 % Invalid Interpretation Code 19-41 [facility] Work Phone: MCH Auto Entitic mass (RBC) 29.9 pg Invalid Interpretation Code 27.0-32.0 [facility] Work Phone: MCHC Auto mass conc (RBC) 31.9 G/GL Low 32-36 [facility] Work Phone: MCV Auto Entitic volume (RBC) 93.8 fL Invalid Interpretation Code 81-99 [facility] Work Phone: Monocytes/100 WBC Auto (Bld) 5.5 % Invalid Interpretation Code 0-10 [facility] Work Phone: Neutrophils/100 WBC Auto (Bld) 71.5 % High 47-70 [facility] Work Phone: Platelet mean volume Fercho-Jana Entitic volume (Bld) 9.9 fL Invalid Interpretation Code 6.2-12.0 [facility] Work Phone: Platelets Auto #/vol (Bld) 259 10*3/mm3 Invalid Interpretation Code 150-450 [facility] Work Phone: [phone] RBC Auto #/vol (Bld) 3.85 10*6/uL Low 4.2-5.4 [facility] Work Phone: WBC Auto #/vol (Bld) 7.4 10*3/uL Invalid Interpretation Code 4.4-11.0 [facility] Work Phone: Lab Report: Thyroid Stim Hor ivory (TSH)on 02-20-2015 Thyrotropin Qn 79.90 u[iU]/mL High 0.358-3.74 [facility] No w Clinic Work Phone: Lab Report: Troponin-Ion Troponin I.cardiac mass conc ng/mL Invalid Interpretation Code <0.06 [facility] Work Phone: Lab Report: A1Con 08-11-2010 Hemoglobin A1c/Hemoglobin.total mass fraction (Bld) 9.6 % High 4.0-6.3 [facility] Work Phone: Lab Report: CMPon 08-11-2010 Albumin mass conc 3.6 g/dL Normal 3.4-5.0 [facility] Work Phone: ALP enzyme act/vol (Bld) 52 U/L Normal 50-136 [facility] Work Phone: ALT enzyme act/vol 31 U/L Normal 12-78 [facility] Work Phone: AST enzyme act/vol 14 U/L Low 15-37 [facility] Work Phone: Bilirubin mass conc 0.60 mg/dL Normal 0.00-1.00 [facility] Work Phone: Lab Report: LIPIDon 08-11-20 10 Cholesterol in HDL mass conc 28 mg/dL Low [facility] Work Phone: [phone] Cholesterol in LDL mass conc 106 mg/dL Normal 0-130 [facility] Work Phone: Cholesterol mass conc 189 mg/dL Normal 200 [facility] Work Phone: Lipoprotein.pre-beta mass conc 55 mg/dL High 5-40 [facility] Work Phone: Triglyceride mass conc 275 mg/dL High [facility] Work Phone: Culture, urine Bacteria identified Cx Nom (U) Negative [facility] Work Phone: Bacteria identified Cx Nom (U) Mixed Gram Pos & Gram Neg Org [facility] Work Phone: Bacteria identified Cx Nom (U) Culture exhibits no growth. [facility] Work Phone: Vital Signs Date Time Vital Sign Value Performing Clinician Jesusi lesia 06-15-2025 13:43-0400 Body height 152.[address] Lizet Linares MD Work Phone: [facility] 06-15-2025 13:43-0400 Body temperature 97.9 [degF] Dr. Lizet Linares MD Work Phone: [facility] 06-15-2025 13:43-0400 Diastolic blood pressure 70 mm[Hg] Dr. Lizet Linares MD Work Phone: [facility] 06-15-2025 13:43-0400 Heart rate 74 /min Dr. Lizet Linares MD Work Phone: [facility] 06-15-2025 13:43-0400 Respiratory rate 16 /min Dr. Lizet Linares MD Work Phone: [facility] 06-15-2025 13:43-0400 SaO2% (BldA) [Mass fraction] 94 % Dr. Lizet Linares MD Work Phone: [facility] 06-15-2025 13:43-0400 Systolic blood pressure 109 mm[Hg] Dr. Lizet Linares MD Work Phone: [facility] 06-07-2025 09:44-0400 Body height 152.[address] Lizet Linares MD Work Phone: [facility] 06-07-2025 09:44-0400 Body mass index (BMI) [Ratio] 39 kg/m2 Dr. Lizet Linares MD Work Phone: [facility] 06-07-2025 09:44-0400 Body temperature 98.3 [degF] Dr. Lizet Linares MD Work Phone: [facility] 06-07-2025 09:44-0400 Body weight 90.[address] Lizet Linares MD Work Phone: [facility] 06-07-2025 09:44-0400 Diastolic blood pressure 78 mm[Hg] Dr. Lizet Linares MD Work Phone: [facility] 06-07-2025 09:44-0400 Heart rate 73 /min Dr. Lizet Linares MD Work Phone: [facility] 06-07-2025 09:44-0400 Respiratory rate 16 /min Dr. Lizet Linares MD Work Phone: [facility] 06-07-2025 09:44-0400 SaO2% (BldA) [Mass fraction] 98 % Dr. Lizet Linares MD Work Phone: [facility] 06-07-2025 09:44-0400 Systolic blood pressure 118 mm[Hg] Dr. Lizet Linares MD Work Phone: [facility] 06-01-2025 15:01-0400 Body temperature 98.2 [degF] Dr. Lizet Linares MD Work Phone: [facility] 06-01-2025 15:01-0400 Diastolic blood pressure 57 mm[Hg] Dr. Lizet Linares MD Work Phone: [facility] 06-01-2025 15:01-0400 Heart rate 67 /min Dr. Lizet Linares MD Work Phone: [facility] 06-01-2025 15:01-0400 Respiratory rate 18 /min Dr. Lizet Linares MD Work Phone: [facility] 06-01-2025 15:01-0400 SaO2% (BldA) [Mass fraction] 97 % Dr. Lizet Linares MD Work Phone: [facility] 06-01-2025 15:01-0400 Systolic blood pressure 138 mm[Hg] Dr. Lizet Linares MD Work Phone: [facility] 05-29-2025 17:25-0400 Body height 152.[address] Lizet Linares MD Work Phone: [facility] 05-29-2025 17:25-0400 Body weight 91.[address] Lizet Linares MD Work Phone: [facility] 05-28-2025 13:15-0400 Body temperature 98.6 [degF] Dr. Lizet Linares MD Work Phone: [facility] 05-28-2025 13:15-0400 Diastolic blood pressure 62 mm[Hg] Dr. Lizet Linares MD Work Phone: [facility] 05-28-2025 13:15-0400 Heart rate 64 /min Dr. Lizet Linares MD Work Phone: [facility] 05-28-2025 13:15-0400 Respiratory rate 18 /min Dr. Lizet Linares MD Work Phone: [facility] 05-28-2025 13:15-0400 SaO2% (BldA) [Mass fraction] 98 % Dr. Lizet Linares MD Work Phone: [facility] 05-28-2025 13:15-0400 Systolic blood pressure 146 mm[Hg] Dr. Lizet Linares MD Work Phone: [facility] 05-28-2025 12:42-0400 Body height 152.[address] Lizet Linares MD Work Phone: [facility] 05-28-2025 12:42-0400 Body mass index (BMI) [Ratio] 39.2 kg/m2 Dr. Lizet Linares MD Work Phone: [facility] 05-28-2025 12:42-0400 Body weight 91.[address] Lizet Linares MD Work Phone: [facility] 05-26-2025 06:00-0400 Diastolic blood pressure 64 mm[Hg] Dr. Lizet Linares MD Work Phone: [facility] 05-26-2025 06:00-0400 SaO2% (BldA) [Mass fraction] 96 % Dr. Lizet Linares MD Work Phone: [facility] 05-26-2025 06:00-0400 Systolic blood pressure 135 mm[Hg] Dr. Lizet Linares MD Work Phone: [facility] 05-26-2025 04:08-0400 Body temperature 98.8 [degF] Dr. Lizet Linares MD Work Phone: [facility] 05-26-2025 04:08-0400 Heart rate 80 /min Dr. Lizet Linares MD Work Phone: [facility] 05-26-2025 04:08-0400 Respiratory rate 16 /min Dr. Lizet Linares MD Work Phone: [facility] 05-26-2025 00:26-0400 Body height 152.[address] Lizet Linares MD Work Phone: [facility] 05-26-2025 00:26-0400 Body mass index (BMI) [Ratio] 41.6 kg/m2 Dr. Lizet Linares MD Work Phone: [facility] 05-26-2025 00:26-0400 Body weight 96.[address] Lizet Linares MD Work Phone: [facility] 03-16-2025 07:49-0400 Body height 152.[address] Lizet Linares MD Work Phone: [facility] 01-30-2025 13:21-0400 Body mass index (BMI) [Ratio] 39 kg/m2 Dr. Lizet Linares MD Work Phone: [facility] 01-30-2025 13:21-0400 Body weight 90.[address] Lizet Linares MD Work Phone: [facility] 01-30-2025 13:21-0400 Diastolic blood pressure 75 mm[Hg] Dr. Lizet Linares MD Work Phone: [facility] 01-30-2025 13:21-0400 Heart rate 81 /min Dr. Lizet Linares MD Work Phone: [facility] 01-30-2025 13:21-0400 Respiratory rate 14 /min Dr. Lizet Linares MD Work Phone: [facility] 01-30-2025 13:21-0400 SaO2% (BldA) [Mass fraction] 95 % Dr. Lizet Linares MD Work Phone: [facility] 01-30-2025 13:21-0400 Systolic blood pressure 117 mm[Hg] Dr. Lizet Linares MD Work Phone: [facility] 01-22-2025 14:00-0400 Diastolic blood pressure 89 mm[Hg] Dr. Lizet Linares MD Work Phone: [facility] 01-22-2025 14:00-0400 Heart rate 78 /min Dr. Lizet Linares MD Work Phone: [facility] 01-22-2025 14:00-0400 Respiratory rate 18 /min Dr. Lizet Linares MD Work Phone: [facility] 01-22-2025 14:00-0400 SaO2% (BldA) [Mass fraction] 98 % Dr. Lizet Linares MD Work Phone: [facility] 01-22-2025 14:00-0400 Systolic blood pressure 117 mm[Hg] Dr. Lizet Linares MD Work Phone: [facility] 01-22-2025 13:50-0400 Body temperature 98.2 [degF] Dr. Lizet Linares MD Work Phone: [facility] 01-22-2025 10:42-0400 Body height 152.[address] Lizet Linares MD Work Phone: [facility] 01-22-2025 10:42-0400 Body mass index (BMI) [Ratio] 39.3 kg/m2 Dr. Lizet Linares MD Work Phone: [facility] 01-22-2025 10:42-0400 Body weight 91.[address] Lizet Linares MD Work Phone: [facility] 10-24-2024 17:21-0500 Body temperature 97.7 [degF] Dr. Lizet Linares MD Work Phone: [facility] 10-24-2024 17:21-0500 Diastolic blood pressure 63 mm[Hg] Dr. Lizet Linares MD Work Phone: [facility] 10-24-2024 17:21-0500 Heart rate 78 /min Dr. Lizet Linares MD Work Phone: [facility] 10-24-2024 17:21-0500 Respiratory rate 16 /min Dr. Lizet Linares MD Work Phone: [facility] 10-24-2024 17:21-0500 SaO2% (BldA) [Mass fraction] 96 % Dr. Lizet Linares MD Work Phone: [facility] 10-24-2024 17:21-0500 Systolic blood pressure 139 mm[Hg] Dr. Lizet Linares MD Work Phone: [facility] 10-24-2024 11:09-0500 Body mass index (BMI) [Ratio] 39.2 kg/m2 Dr. Lizet Linares MD Work Phone: [facility] 10-24-2024 11:09-0500 Body weight 91 kg Dr. Lizet Linares MD Work Phone: [facility] 01-20-2024 05:27-0400 Body temperature 98.6 [degF] Dr. Jarred Lopez Work Phone: [facility] 01-20-2024 05:27-0400 Diastolic blood pressure 58 mm[Hg] Dr. Jarred Lopez Work Phone: 4(464)387-434790 [place] [address] 01-20-2024 05:27-0400 Heart rate 76 /min Dr. Jarred Lopez Work Phone: 6(312)298-761690 [place] [address] 01-20-2024 05:27-0400 Respiratory rate 13 /min Dr. Jrared Lopez Work Phone: 8(926)584-017890 [place] [address] 01-20-2024 05:27-0400 SaO2% (BldA) [Mass fraction] 94 % Dr. Jarred Lopez Work Phone: 9(533)405-597890 [place] [address] 01-20-2024 05:27-0400 Systolic blood pressure 127 mm[Hg] Dr. Jarred Lopez Work Phone: 9(509)122-534690 [place] [address] 01-20-2024 01:04-0400 Body height 152.[address] Jarred Lopez Work Phone: 5(978)385-409590 [place] [address] 01-20-2024 01:04-0400 Body mass index (BMI) [Ratio] 36.7 kg/m2 Dr. Jarred Lopez Work Phone: 1(476)765-450290 [place] [address] 01-20-2024 01:04-0400 Body weight 85.[address] Jarred Lopez Work Phone: 3(177)754-077990 [place] [address] 01-05-2024 13:45-0400 Body temperature 98.1 [degF] Dr. Jarred Lopez Work Phone: 9(228)194-055990 [place] [address] 01-05-2024 13:45-0400 Diastolic blood pressure 56 mm[Hg] Dr. Jarred Lopez Work Phone: 3(168)232-385690 [place] [address] 01-05-2024 13:45-0400 Heart rate 78 /min Dr. Jarred Lopez Work Phone: 2(923)045-778990 [place] [address] 01-05-2024 13:45-0400 Respiratory rate 18 /min Dr. Jarred Lopez Work Phone: 6(070)622-829090 [place] [address] 01-05-2024 13:45-0400 SaO2% (BldA) [Mass fraction] 96 % Dr. Jarred Lopez Work Phone: 9(375)101-020365 [place] [address] 01-05-2024 13:45-0400 Systolic blood pressure 96 mm[Hg] Dr. Jarred Lopez Work Phone: 8(163)783-223390 [place] [address] 01-04-2024 03:05-0400 Body mass index (BMI) [Ratio] 32.8 kg/m2 Dr. Jarred Lopez Work Phone: 0(481)635-506790 [place] [address] 01-04-2024 03:05-0400 Body weight 76.[address] Jarred Lopez Work Phone: 5(885)124-245190 [place] [address] 01-03-2024 22:31-0400 Inhaled oxygen flow rate 2 L/min Dr. Jarred Lopez Work Phone: 1(290)690-508190 [place] [address] 01-03-2024 12:42-0400 Diastolic blood pressure 64 mm[Hg] Dr. Jarred Lopez Work Phone: 6(285)050-633090 [place] [address] 01-03-2024 12:42-0400 Heart rate 88 /min Dr. Jarred Lopez Work Phone: 6(585)771-886690 [place] [address] 01-03-2024 12:42-0400 Systolic blood pressure 127 mm[Hg] Dr. Jarred Lopez Work Phone: 3(869)838-661290 [place] [address] 01-03-2024 11:52-0400 Body temperature 98 [degF] Dr. Jarred Lopez Work Phone: 3(964)059-963090 [place] [address] 01-03-2024 11:52-0400 Respiratory rate 16 /min Dr. Jarred Lopez Work Phone: 8(102)255-057890 [place] [address] 01-03-2024 11:52-0400 SaO2% (BldA) [Mass fraction] 94 % Dr. Jarred Lopez Work Phone: 1(128)355-804790 [place] [address] 01-03-2024 05:53-0400 Body mass index (BMI) [Ratio] 32.7 kg/m2 Dr. Jarred Lopez Work Phone: [facility] 01-03-2024 05:53-0400 Body weight [address] Jarred Lopez Work Phone: 6(385)419-243865 [place] [address] 01-02-2024 14:55-0400 Body height 152.[address] Jarred Lopez Work Phone: 0(254)692-415790 [place] [address] 01-01-2024 22:20-0500 Body temperature 97.6 [degF] Dr. Jarred Lopez Work Phone: 3(083)264-511290 [place] [address] 01-01-2024 22:20-0500 Diastolic blood pressure 62 mm[Hg] Dr. Jarred Lopez Work Phone: 6(551)808-742590 [place] [address] 01-01-2024 22:20-0500 Heart rate 84 /min Dr. Jarred Lopez Work Phone: 3(289)028-933790 [place] [address] 01-01-2024 22:20-0500 Respiratory rate 13 /min Dr. Jarred Lopez Work Phone: 1(268)850-312890 [place] [address] 01-01-2024 22:20-0500 SaO2% (BldA) [Mass fraction] 99 % Dr. Jarred Lopez Work Phone: 4(430)414-782390 [place] [address] 01-01-2024 22:20-0500 Systolic blood pressure 146 mm[Hg] Dr. Jarred Lopez Work Phone: 7(029)023-852490 [place] [address] 01-01-2024 18:32-0500 Body height 152.[address] Jarred Lopez Work Phone: 3(416)196-373790 [place] [address] 01-01-2024 18:32-0500 Body mass index (BMI) [Ratio] 33.1 kg/m2 Dr. Jarred Lopez Work Phone: 5(511)571-533890 [place] [address] 01-01-2024 18:32-0500 Body weight [address] Jarred Lopez Work Phone: 2(326)671-251465 [place] [address] 11-24-2023 15:05-0500 Body temperature 98.5 [degF] Dr. Jarred Lopez Work Phone: 0(166)973-804765 [place] [address] 11-24-2023 15:05-0500 Diastolic blood pressure 63 mm[Hg] Dr. Jarred Lopez Work Phone: 6(568)423-432290 [place] [address] 11-24-2023 15:05-0500 Heart rate 66 /min Dr. Jarred Lopez Work Phone: 0(949)878-353590 [place] [address] 11-24-2023 15:05-0500 Respiratory rate 16 /min Dr. Jarred Lopez Work Phone: 3(238)735-467090 [place] [address] 11-24-2023 15:05-0500 SaO2% (BldA) [Mass fraction] 96 % Dr. Jarred Lopez Work Phone: 9(859)664-413090 [place] [address] 11-24-2023 15:05-0500 Systolic blood pressure 117 mm[Hg] Dr. Jarred Lopez Work Phone: 6(316)036-343790 [place] [address] 11-24-2023 06:00-0500 Body mass index (BMI) [Ratio] 35.9 kg/m2 Dr. Jarred Lopez Work Phone: 3(992)617-310290 [place] [address] 11-24-2023 06:00-0500 Body weight 83.[address] Jarred Lopez Work Phone: 6(174)529-011490 [place] [address] 11-19-2023 10:27-0500 Body temperature 98.1 [degF] Dr. Jarred Lopez Work Phone: 7(401)272-117190 [place] [address] 11-19-2023 10:27-0500 Diastolic blood pressure 74 mm[Hg] Dr. Jarred Lopez Work Phone: 5(243)979-028090 [place] [address] 11-19-2023 10:27-0500 Heart rate 72 /min Dr. Jarred Lopez Work Phone: 9(454)174-032690 [place] [address] 11-19-2023 10:27-0500 Respiratory rate 15 /min Dr. Jarred Lopez Work Phone: 8(846)694-568490 [place] [address] 11-19-2023 10:27-0500 SaO2% (BldA) [Mass fraction] 99 % Dr. Jarred Lopez Work Phone: [facility] 11-19-2023 10:27-0500 Systolic blood pressure 134 mm[Hg] Dr. Jarred Lopez Work Phone: [facility] 11-19-2023 08:20-0500 Body height 152.[address] Jarred Lopez Work Phone: [facility] 11-19-2023 08:20-0500 Body mass index (BMI) [Ratio] 36.9 kg/m2 Dr. Jarred Lopez Work Phone: [facility] 11-19-2023 08:20-0500 Body weight 85.[address] Jarred Lopez Work Phone: [facility] 06-10-2023 16:53-0400 Respiratory rate 16 /min Dr. Ganesh Garcia Work Phone: 9(557)424-406627 [address] 06-10-2023 14:57-0400 Body height 152.[address] Ganesh Garcia Work Phone: 0(495)239-065392 [place] [address] 06-10-2023 14:57-0400 Body temperature 96.4 [degF] Dr. Ganesh Garcia Work Phone: 7(557)159-362392 [place] [address] 06-10-2023 14:57-0400 Diastolic blood pressure 88 mm[Hg] Dr. Ganesh Garcia Work Phone: 5(366)232-814627 [address] 06-10-2023 14:57-0400 Heart rate 93 /min Dr. Ganesh Garcia Work Phone: 7(960)559-990592 [place] [address] 06-10-2023 14:57-0400 SaO2% (BldA) [Mass fraction] 100 % Dr. Ganesh Garcia Work Phone: 0(741)696-751827 [address] 06-10-2023 14:57-0400 Systolic blood pressure 119 mm[Hg] Dr. Ganesh Garcia Work Phone: 7(179)005-012092 [place] [address] 06-06-2023 20:09-0400 Diastolic blood pressure 97 mm[Hg] Dr. Ganesh Garcia Work Phone: 5(080)669-527227 [address] 08-13-2023 20:09-0400 Heart rate 71 /min Dr. Ganesh Garcia Work Phone: 3(731)075-635892 [place] [address] 06-06-2023 20:09-0400 Respiratory rate 16 /min Dr. Ganesh Garcia Work Phone: 7(060)496-022192 [place] [address] 06-06-2023 20:09-0400 SaO2% (BldA) [Mass fraction] 97 % Dr. Ganesh Garcia Work Phone: 1(547)933-229492 [place] [address] 06-06-2023 20:09-0400 Systolic blood pressure 178 mm[Hg] Dr. Ganesh Garcia Work Phone: 8(147)839-732092 [place] [address] 06-06-2023 18:42-0400 Body mass index (BMI) [Ratio] 38 kg/m2 Dr. Ganesh Garcia Work Phone: 1(297)715-378192 [place] [address] 06-06-2023 18:42-0400 Body weight [address] Ganesh Garcia Work Phone: 3(441)945-608892 [place] [address] 06-06-2023 17:48-0400 Body height 152.[address] Ganesh Garcia Work Phone: 9(963)711-741192 [place] [address] 06-06-2023 17:48-0400 Body temperature 96.9 [degF] Dr. Ganesh Garcia Work Phone: 7(625)232-264692 [place] [address] 06-04-2023 21:40-0400 Diastolic blood pressure 58 mm[Hg] Dr. Ganesh Garcia Work Phone: 5(641)028-883892 [place] [address] 06-04-2023 21:40-0400 Heart rate 85 /min Dr. Ganesh Garcia Work Phone: 9(736)252-477992 [place] [address] 06-04-2023 21:40-0400 Respiratory rate 18 /min Dr. Ganesh Garcia Work Phone: 7(868)776-101292 [place] [address] 06-04-2023 21:40-0400 SaO2% (BldA) [Mass fraction] 93 % Dr. Ganesh Garcia Work Phone: 2(001)249-094792 [place] [address] 06-04-2023 21:40-0400 Systolic blood pressure 118 mm[Hg] Dr. Ganesh Garcia Work Phone: 2(435)644-341292 [place] [address] 06-04-2023 19:28-0400 Body mass index (BMI) [Ratio] 37.9 kg/m2 Dr. Ganesh Garcia Work Phone: [facility] 06-04-2023 19:28-0400 Body weight 87.[address] Ganesh Garcia Work Phone: [facility] 06-04-2023 13:49-0400 Body height 152.[address] Ganesh Garcia Work Phone: [facility] 06-04-2023 13:49-0400 Body temperature 96.6 [degF] Dr. Ganesh Garcia Work Phone: [facility] 04-23-2023 14:35-0400 Body temperature 100 [degF] Vernon Degroot [employer] Work Phone: [facility] 04-23-2023 14:35-0400 Body weight 81.1 kg Vernon Degroot [employer] Work Phone: [facility] 04-23-2023 14:35-0400 Diastolic blood pressure 82 mm[Hg] Vernon Degroot [employer] Work Phone: [facility] 04-23-2023 14:35-0400 Heart rate 94 /min Vernon Degroot [employer] Work Phone: [facility] 04-23-2023 14:35-0400 Respiratory rate 21 /min Vernon Degroot [employer] Work Phone: [facility] 04-23-2023 14:35-0400 SaO2% (BldA) [Mass fraction] 99 % Vernon Degroot [employer] Work Phone: [facility] 04-23-2023 14:35-0400 Systolic blood pressure 130 mm[Hg] Vernon Degroot [employer] Work Phone: [facility] 04-07-2023 13:09-0400 Body height 152.4 cm Dwayne Lopez MD Work Phone: [facility] 04-07-2023 13:09-0400 Body weight 81.65 kg Dwayne Lopez MD Work Phone: [facility] 04-07-2023 13:09-0400 Diastolic blood pressure 74 mm[Hg] Dwayne Lopez MD Work Phone: [facility] 04-07-2023 13:09-0400 Heart rate 80 /min Dwayne Lopez MD Work Phone: [facility] 04-07-2023 13:09-0400 Respiratory rate 16 /min Dwayne Lopez MD Work Phone: [facility] 04-07-2023 13:09-0400 Systolic blood pressure 112 mm[Hg] Dwayne Lopez MD Work Phone: [facility] 03-28-2023 09:08-0400 Body mass index (BMI) [Ratio] 35.6 kg/m2 Dr. Lizet Linares Work Phone: [facility] 03-28-2023 09:08-0400 Body weight 82.[address] Lizet Linares Work Phone: [facility] 03-28-2023 08:40-0400 Body height 152.[address] Lizet Linares Work Phone: [facility] 03-28-2023 08:40-0400 Body temperature 95 [degF] Dr. Lizet Linares Work Phone: [facility] 03-28-2023 08:40-0400 Diastolic blood pressure 76 mm[Hg] Dr. Lizet Linares Work Phone: [facility] 03-28-2023 08:40-0400 Heart rate 122 /min Dr. Lizet Linares Work Phone: [facility] 03-28-2023 08:40-0400 Respiratory rate 18 /min Dr. Lizet Linares Work Phone: [facility] 03-28-2023 08:40-0400 SaO2% (BldA) [Mass fraction] 100 % Dr. Lizet Linares Work Phone: [facility] 03-28-2023 08:40-0400 Systolic blood pressure 133 mm[Hg] Dr. Lizet Linares Work Phone: [facility] 03-24-2023 10:18-0400 Body weight 83.92 kg Dwayne Lopez MD Work Phone: [facility] 03-24-2023 10:18-0400 Diastolic blood pressure 64 mm[Hg] Dwayne Lopez MD Work Phone: [facility] 03-24-2023 10:18-0400 Heart rate 84 /min Dwayne Lopez MD Work Phone: [facility] 03-24-2023 10:18-0400 Respiratory rate 16 /min Dwayne Lopez MD Work Phone: [facility] 03-24-2023 10:18-0400 Systolic blood pressure 110 mm[Hg] Dwayne Lopez MD Work Phone: [facility] 02-11-2023 13:05-0400 Body height 152.[address] Lizet Linares Work Phone: [facility] 02-11-2023 13:05-0400 Body mass index (BMI) [Ratio] 35.9 kg/m2 Dr. Lizet Linares Work Phone: [facility] 02-11-2023 13:05-0400 Body weight 83.[address] Lizet Linares Work Phone: [facility] 02-11-2023 13:05-0400 Diastolic blood pressure 83 mm[Hg] Dr. Lizet Linares Work Phone: [facility] 02-11-2023 13:05-0400 Heart rate 88 /min Dr. Lizet Linares Work Phone: [facility] 02-11-2023 13:05-0400 Respiratory rate 18 /min Dr. Lizet Linares Work Phone: [facility] 02-11-2023 13:05-0400 SaO2% (BldA) [Mass fraction] 99 % Dr. Lizet Linares Work Phone: [facility] 02-11-2023 13:05-0400 Systolic blood pressure 152 mm[Hg] Dr. Lizet Linares Work Phone: [facility] 01-30-2023 00:39-0400 Body temperature 98 [degF] Dr. Lizet Linares Work Phone: [facility] 01-30-2023 00:39-0400 Diastolic blood pressure 85 mm[Hg] Dr. Lizet Linares Work Phone: [facility] 01-30-2023 00:39-0400 Heart rate 85 /min Dr. Lizet Linares Work Phone: [facility] 01-30-2023 00:39-0400 Respiratory rate 19 /min Dr. Lizet Linares Work Phone: [facility] 01-30-2023 00:39-0400 SaO2% (BldA) [Mass fraction] 97 % Dr. Lizet Linares Work Phone: [facility] 01-30-2023 00:39-0400 Systolic blood pressure 159 mm[Hg] Dr. Lizet Linares Work Phone: [facility] 01-29-2023 22:02-0400 Body mass index (BMI) [Ratio] 36.6 kg/m2 Dr. Lizet Linares Work Phone: [facility] 01-29-2023 22:02-0400 Body weight 85.[address] Lizet Linares Work Phone: [facility] 01-29-2023 21:18-0400 Body height 152.[address] Lizet Linares Work Phone: [facility] 01-07-2023 15:19-0400 Body mass index (BMI) [Ratio] 36.2 kg/m2 Dr. Ganesh Garcia Work Phone: 3(536)958-932092 [place] [address] 01-07-2023 15:19-0400 Body weight 84.[address] Ganesh Garcia Work Phone: 4(752)706-802592 [place] [address] 01-07-2023 15:17-0400 Body height 152.[address] Ganesh Garcia Work Phone: 6(511)575-205292 [place] [address] 01-07-2023 15:17-0400 Body temperature 96 [degF] Dr. Ganesh Garcia Work Phone: 1(817)614-247492 [place] [address] 01-07-2023 15:17-0400 Diastolic blood pressure 70 mm[Hg] Dr. Ganesh Garcia Work Phone: 5(338)639-354092 [place] [address] 01-07-2023 15:17-0400 Heart rate 95 /min Dr. Ganesh Garcia Work Phone: 9(382)710-134292 [place] [address] 01-07-2023 15:17-0400 Respiratory rate 18 /min Dr. Ganesh Garcia Work Phone: 0(303)819-858592 [place] [address] 01-07-2023 15:17-0400 SaO2% (BldA) [Mass fraction] 99 % Dr. Ganesh Garcia Work Phone: 9(427)001-793792 [place] [address] 01-07-2023 15:17-0400 Systolic blood pressure 143 mm[Hg] Dr. Ganesh Garcia Work Phone: 5(843)133-973392 [place] [address] 01-06-2023 20:30-0400 Diastolic blood pressure 59 mm[Hg] Dr. Ganesh Garcia Work Phone: 1(101)083-835492 [place] [address] 01-06-2023 20:30-0400 Heart rate 84 /min Dr. Ganesh Garcia Work Phone: 1(279)312-307492 [place] [address] 01-06-2023 20:30-0400 Respiratory rate 19 /min Dr. Ganesh Garcia Work Phone: 4(585)477-110192 [place] [address] 01-06-2023 20:30-0400 SaO2% (BldA) [Mass fraction] 94 % Dr. Ganesh Garcia Work Phone: 1(764)496-445492 [place] [address] 01-06-2023 20:30-0400 Systolic blood pressure 145 mm[Hg] Dr. Ganesh Garcia Work Phone: 3(746)138-840792 [place] [address] 01-06-2023 17:40-0400 Body mass index (BMI) [Ratio] 36 kg/m2 Dr. Ganesh Garcia Work Phone: 6(253)191-386092 [place] [address] 01-06-2023 17:40-0400 Body weight 83.[address] Ganesh Garcia Work Phone: 4(379)351-875792 [place] [address] 01-06-2023 17:27-0400 Body temperature 98 [degF] Dr. Ganesh Garcia Work Phone: 4(462)249-414492 [place] [address] 01-06-2023 17:24-0400 Body height 152.[address] Ganesh Garcia Work Phone: 2(380)760-650792 [place] [address] 11-05-2022 05:00-0500 Diastolic blood pressure 75 mm[Hg] Dr. Ganesh Garcia Work Phone: 8(137)237-333292 [place] [address] 11-05-2022 05:00-0500 Heart rate 89 /min Dr. Ganesh Garcia Work Phone: 2(893)243-228992 [place] [address] 11-05-2022 05:00-0500 Respiratory rate 19 /min Dr. Ganesh Garcia Work Phone: 4(878)281-792192 [place] [address] 11-05-2022 05:00-0500 SaO2% (BldA) [Mass fraction] 95 % Dr. Ganesh Garcia Work Phone: 3(671)713-820992 [place] [address] 11-05-2022 05:00-0500 Systolic blood pressure 138 mm[Hg] Dr. Ganesh Garcia Work Phone: 1(223)351-381892 [place] [address] 11-05-2022 01:44-0500 Body height 152.[address] Ganesh Garcia Work Phone: 2(035)681-364792 [place] [address] 11-05-2022 01:44-0500 Body mass index (BMI) [Ratio] 33.7 kg/m2 Dr. Ganesh Garcia Work Phone: 7(530)293-252292 [place] [address] 11-05-2022 01:44-0500 Body temperature 96.7 [degF] Dr. Ganesh Garcia Work Phone: 3(317)486-882792 [place] [address] 11-05-2022 01:44-0500 Body weight 78.[address] Ganesh Garcia Work Phone: 7(783)014-642792 [place] [address] 10-09-2022 04:11-0500 Diastolic blood pressure 67 mm[Hg] Dr. Ganesh Garcia Work Phone: 3(281)881-505692 [place] [address] 10-09-2022 04:11-0500 Heart rate 68 /min Dr. Ganesh Garcia Work Phone: 8(039)302-839992 [place] [address] 10-09-2022 04:11-0500 Respiratory rate 18 /min Dr. Ganesh Garcia Work Phone: 8(102)045-593992 [place] [address] 10-09-2022 04:11-0500 SaO2% (BldA) [Mass fraction] 97 % Dr. Ganesh Garcia Work Phone: 6(797)256-906092 [place] [address] 10-09-2022 04:11-0500 Systolic blood pressure 100 mm[Hg] Dr. Ganesh Garcia Work Phone: 7(233)768-050592 [place] [address] 10-09-2022 01:29-0500 Body height 152.[address] Ganesh Garcia Work Phone: 2(476)486-253592 [place] [address] Work Phone: 10-09-2022 01:29-0500 Body mass index (BMI) [Ratio] 34.3 kg/m2 Dr. Ganesh Garcia Work Phone: 0(286)993-822492 [place] [address] 10-09-2022 01:29-0500 Body temperature 98.6 [degF] Dr. Ganesh Garcia Work Phone: 6(988)296-208992 [place] [address] 10-09-2022 01:29-0500 Body weight 79.[address] Ganesh Garcia Work Phone: 2(148)516-159627 [address] 09-09-2022 13:37-0500 Body height 152.[address] Ganesh Garcia Work Phone: 4(272)179-574092 [place] [address] Work Phone: 09-09-2022 13:37-0500 Diastolic blood pressure 71 mm[Hg] Dr. Ganesh Garcia Work Phone: 4(776)236-322327 [address] 09-09-2022 13:37-0500 Heart rate 88 /min Dr. Ganesh Garcia Work Phone: 6(499)008-456192 [place] [address] 09-09-2022 13:37-0500 Respiratory rate 16 /min Dr. Ganesh Garcia Work Phone: 1(841)966-784192 [place] [address] 09-09-2022 13:37-0500 Systolic blood pressure 101 mm[Hg] Dr. Ganesh Garcia Work Phone: 7(524)585-738192 [place] [address] 08-24-2022 07:19-0400 Diastolic blood pressure 49 mm[Hg] Dr. Ganesh Garcia Work Phone: 3(304)612-621892 [place] [address] 08-24-2022 07:19-0400 Heart rate 65 /min Dr. Ganesh Garcia Work Phone: 6(956)006-870592 [place] [address] 08-24-2022 07:19-0400 Respiratory rate 18 /min Dr. Ganesh Garcia Work Phone: 3(795)048-314192 [place] [address] 08-24-2022 07:19-0400 SaO2% (BldA) [Mass fraction] 93 % Dr. Ganesh Garcia Work Phone: 1(829)797-350892 [place] [address] 08-24-2022 07:19-0400 Systolic blood pressure 107 mm[Hg] Dr. Ganesh Garcia Work Phone: 0(847)363-368692 [place] [address] 08-24-2022 05:17-0400 Inhaled oxygen flow rate 1 L/min Dr. Ganesh Garcia Work Phone: 2(825)443-643792 [place] [address] 08-24-2022 03:19-0400 Body height 152.[address] Ganesh Garcia Work Phone: 3(272)163-140327 [address] Work Phone: 08-24-2022 03:19-0400 Body mass index (BMI) [Ratio] 33.4 kg/m2 Dr. Ganesh Garcia Work Phone: 4(189)587-461327 [address] 08-24-2022 03:19-0400 Body temperature 97.3 [degF] Dr. Ganesh Garcia Work Phone: 0(014)749-735327 [address] 08-24-2022 03:19-0400 Body weight 77.[address] Ganesh Garcia Work Phone: 3(644)438-976292 [place] [address] 06-12-2022 14:13-0400 Body height 152.[address] Jarred Lopez Work Phone: [facility] Work Phone: 06-12-2022 14:12-0400 Body mass index (BMI) [Ratio] 34.7 kg/m2 Dr. Jarred Lopez Work Phone: [facility] Work Phone: 06-12-2022 14:12-0400 Body weight 80.[address] Jarred Lopez Work Phone: [facility] Work Phone: 06-12-2022 14:12-0400 Diastolic blood pressure 58 mm[Hg] Dr. Jarred Lopez Work Phone: [facility] Work Phone: 06-12-2022 14:12-0400 Heart rate 68 /min Dr. Jarred Lopez Work Phone: [facility] Work Phone: 06-12-2022 14:12-0400 Respiratory rate 16 /min Dr. Jarred Lopez Work Phone: [facility] Work Phone: 06-12-2022 14:12-0400 Systolic blood pressure 106 mm[Hg] Dr. Jarred Lopez Work Phone: [facility] Work Phone: 05-21-2022 15:00-0400 Heart rate 73 /min Dr. Jarred Lopez Work Phone: [facility] Work Phone: 05-21-2022 14:55-0400 Diastolic blood pressure 71 mm[Hg] Dr. Jarred Lopez Work Phone: [facility] Work Phone: 05-21-2022 14:55-0400 Heart rate 74 /min Dr. Jarred Lopez Work Phone: [facility] Work Phone: 05-21-2022 14:55-0400 Respiratory rate 16 /min Dr. Jarred Lopez Work Phone: [facility] Work Phone: 05-21-2022 14:55-0400 SaO2% (BldA) [Mass fraction] 94 % Dr. Jarred Lopez Work Phone: [facility] Work Phone: 05-21-2022 14:55-0400 Systolic blood pressure 112 mm[Hg] Dr. Jarred Lopez Work Phone: [facility] Work Phone: 05-21-2022 14:44-0400 Inhaled oxygen flow rate 2 L/min Dr. Jarred Lopez Work Phone: [facility] Work Phone: 05-21-2022 11:46-0400 Body temperature 98.2 [degF] Dr. Jarred Lopez Work Phone: [facility] Work Phone: 05-21-2022 06:40-0400 Body height 152.[address] Jarred Lopez Work Phone: [facility] Work Phone: 05-21-2022 06:40-0400 Body mass index (BMI) [Ratio] 36.3 kg/m2 Dr. Jarred Lopez Work Phone: [facility] Work Phone: 05-21-2022 06:40-0400 Body weight 84.[address] Jarred Lopez Work Phone: [facility] Work Phone: 05-21-2022 03:08-0400 Body temperature 97.9 [degF] Dr. Jarred Lopez Work Phone: [facility] Work Phone: 05-21-2022 03:08-0400 Diastolic blood pressure 72 mm[Hg] Dr. Jarred Lopez Work Phone: [facility] Work Phone: 05-21-2022 03:08-0400 Heart rate 77 /min Dr. Jarred Lopez Work Phone: [facility] Work Phone: 05-21-2022 03:08-0400 Inhaled oxygen flow rate 2 L/min Dr. Jarred Lopez Work Phone: [facility] Work Phone: 05-21-2022 03:08-0400 Respiratory rate 19 /min Dr. Jarred Lopez Work Phone: [facility] Work Phone: 05-21-2022 03:08-0400 SaO2% (BldA) [Mass fraction] 96 % Dr. Jarred Lopez Work Phone: [facility] Work Phone: 05-21-2022 03:08-0400 Systolic blood pressure 116 mm[Hg] Dr. Jarred Lopez Work Phone: [facility] Work Phone: 05-20-2022 22:05-0400 Body height 152.[address] Jarred Lopez Work Phone: [facility] Work Phone: 05-20-2022 22:05-0400 Body mass index (BMI) [Ratio] 38.9 kg/m2 Dr. Jarred Lopez Work Phone: [facility] Work Phone: 05-20-2022 22:05-0400 Body weight 90.[address] Jarred Lopez Work Phone: [facility] Work Phone: 05-04-2022 00:00-0400 Diastolic blood pressure 61 mm[Hg] Dr. Jarred Lopez Work Phone: [facility] Work Phone: 05-04-2022 00:00-0400 Heart rate 79 /min Dr. Jarred Lopez Work Phone: [facility] Work Phone: 05-04-2022 00:00-0400 Respiratory rate 17 /min Dr. Jarred Lopez Work Phone: [facility] Work Phone: 05-04-2022 00:00-0400 SaO2% (BldA) [Mass fraction] 96 % Dr. Jarred Lopez Work Phone: [facility] Work Phone: 05-04-2022 00:00-0400 Systolic blood pressure 114 mm[Hg] Dr. Jarred Lopez Work Phone: [facility] Work Phone: 05-03-2022 19:54-0400 Body height 152.[address] Jarred Lopez Work Phone: [facility] Work Phone: 05-03-2022 19:54-0400 Body mass index (BMI) [Ratio] 37.8 kg/m2 Dr. Jarred Lopez Work Phone: [facility] Work Phone: 05-03-2022 19:54-0400 Body temperature 97.8 [degF] Dr. Jarred Lopez Work Phone: [facility] Work Phone: 05-03-2022 19:54-0400 Body weight [address] Jarred Lopez Work Phone: [facility] Work Phone: 04-25-2022 15:04-0400 Heart rate 72 /min Dr. Jarred Lopez Work Phone: [facility] Work Phone: 04-25-2022 11:53-0400 Body temperature 97.8 [degF] Dr. Jarred Lopez Work Phone: [facility] Work Phone: 04-25-2022 11:53-0400 Diastolic blood pressure 65 mm[Hg] Dr. Jarred Lopez Work Phone: [facility] Work Phone: 04-25-2022 11:53-0400 Respiratory rate 16 /min Dr. Jarred Lopez Work Phone: [facility] Work Phone: 04-25-2022 11:53-0400 SaO2% (BldA) [Mass fraction] 94 % Dr. Jarred Lopez Work Phone: [facility] Work Phone: 04-25-2022 11:53-0400 Systolic blood pressure 105 mm[Hg] Dr. Jarred Lopez Work Phone: [facility] Work Phone: 04-25-2022 09:47-0400 Inhaled oxygen flow rate 2 L/min Dr. Jarred Lopez Work Phone: [facility] Work Phone: 04-24-2022 17:41-0400 Body height 152.[address] Jarred Lopez Work Phone: [facility] Work Phone: 04-24-2022 17:41-0400 Body mass index (BMI) [Ratio] 35.4 kg/m2 Dr. Jarred Lopez Work Phone: [facility] Work Phone: 04-24-2022 17:41-0400 Body weight 82.[address] Jarred Lopez Work Phone: [facility] Work Phone: 03-30-2022 15:00-0400 Body temperature 97.2 [degF] Dr. Jarred Lopez Work Phone: [facility] Work Phone: 03-30-2022 15:00-0400 Diastolic blood pressure 86 mm[Hg] Dr. Jarred Lopez Work Phone: [facility] Work Phone: 03-30-2022 15:00-0400 Heart rate 81 /min Dr. Jarred Lopez Work Phone: [facility] Work Phone: 03-30-2022 15:00-0400 Respiratory rate 16 /min Dr. Jarred Lopez Work Phone: [facility] Work Phone: 03-30-2022 15:00-0400 SaO2% (BldA) [Mass fraction] 96 % Dr. Jarred Lopez Work Phone: [facility] Work Phone: 03-30-2022 15:00-0400 Systolic blood pressure 114 mm[Hg] Dr. Jarred Lopez Work Phone: [facility] Work Phone: 03-28-2022 13:35-0400 Inhaled oxygen flow rate 2 L/min Dr. Jarred Lopez Work Phone: [facility] Work Phone: 03-20-2022 18:30-0400 Body temperature 97.1 [degF] Dr. Jarred Lopez Work Phone: [facility] Work Phone: 03-20-2022 18:30-0400 Diastolic blood pressure 89 mm[Hg] Dr. Jarred Lopez Work Phone: [facility] Work Phone: 03-20-2022 18:30-0400 Heart rate 80 /min Dr. Jarred Lopez Work Phone: [facility] Work Phone: 03-20-2022 18:30-0400 Respiratory rate 16 /min Dr. Jarred Lopez Work Phone: [facility] Work Phone: 03-20-2022 18:30-0400 SaO2% (BldA) [Mass fraction] 100 % Dr. Jarred Lopez Work Phone: [facility] Work Phone: 03-20-2022 18:30-0400 Systolic blood pressure 137 mm[Hg] Dr. Jarred Lopez Work Phone: [facility] Work Phone: 03-20-2022 18:20-0400 Body height 152.[address] Jarred Lopez Work Phone: [facility] Work Phone: 03-20-2022 18:20-0400 Body mass index (BMI) [Ratio] 32.3 kg/m2 Dr. Jarred Lopez Work Phone: [facility] Work Phone: 03-20-2022 18:20-0400 Body weight [address] Jarred Lopez Work Phone: [facility] Work Phone: 02-24-2022 16:22-0400 Heart rate 84 /min [facility] Work Phone: 02-24-2022 16:22-0400 Respiratory rate 16 /min [facility] Work Phone: 02-24-2022 16:22-0400 SaO2% (BldA) [Mass fraction] 97 % [facility] Work Phone: 02-24-2022 15:40-0400 Diastolic blood pressure 60 mm[Hg] [facility] Work Phone: 02-24-2022 15:40-0400 Systolic blood pressure 108 mm[Hg] [facility] Work Phone: 02-24-2022 13:02-0400 Body height 152.4 cm [facility] Work Phone: 02-24-2022 13:02-0400 Body mass index (BMI) [Ratio] 29.7 kg/m2 [facility] Work Phone: 02-24-2022 13:02-0400 Body temperature 97.6 [degF] [facility] Work Phone: 02-24-2022 13:02-0400 Body weight 68.94 kg [facility] Work Phone: 01-13-2022 19:41-0400 Diastolic blood pressure 70 mm[Hg] [facility] Work Phone: 01-13-2022 19:41-0400 Heart rate 74 /min [facility] Work Phone: 01-13-2022 19:41-0400 Respiratory rate 17 /min [facility] Work Phone: 01-13-2022 19:41-0400 SaO2% (BldA) [Mass fraction] 97 % [facility] Work Phone: 01-13-2022 19:41-0400 Systolic blood pressure 95 mm[Hg] [facility] Work Phone: 01-13-2022 14:20-0400 Body height 152.4 cm [facility] Work Phone: 01-13-2022 14:20-0400 Body mass index (BMI) [Ratio] 29.7 kg/m2 [facility] Work Phone: 01-13-2022 14:20-0400 Body temperature 97.3 [degF] [facility] Work Phone: 01-13-2022 14:20-0400 Body weight 68.94 kg [facility] Work Phone: 09-27-2021 14:38-0500 Body mass index (BMI) [Ratio] 28.7 kg/m2 [facility] Work Phone: 09-27-2021 14:38-0500 Body temperature 96.6 [degF] [facility] Work Phone: 09-27-2021 14:38-0500 Body weight 66.67 kg [facility] Work Phone: 09-27-2021 14:38-0500 Diastolic blood pressure 80 mm[Hg] [facility] Work Phone: 09-27-2021 14:38-0500 Heart rate 100 /min [facility] Work Phone: 09-27-2021 14:38-0500 Respiratory rate 16 /min [facility] Work Phone: 09-27-2021 14:38-0500 SaO2% (BldA) [Mass fraction] 100 % [facility] Work Phone: 09-27-2021 14:38-0500 Systolic blood pressure 154 mm[Hg] [facility] Work Phone: 07-28-2017 17:13-0400 BMI (Body Mass Index) 32.38 kg/m2 Angelika De La Torre LPN [facility] No w Clinic Work Phone: 07-28-2017 17:13-0400 Body Temperature 98.3 [degF] Angelika De La Torre LPN [facility] Now [facility] Work Phone: 07-28-2017 17:13-0400 BP Diastolic 76 mm[Hg] Angelika De La Torre LPN [facility] Work Phone: 07-28-2017 17:13-0400 BP Systolic 124 mm[Hg] Angelika De La Torre LPN [facility] Work Phone: 07-28-2017 17:13-0400 Height 152.4 cm Angelika De La Torre LPN [facility] Work Phone: 07-28-2017 17:13-0400 Pulse (Heart Rate) 72 /min Angelika De La Torre LPN [facility] Now C [facility]inic Work Phone: 07-28-2017 17:13-0400 Respiratory Rate 15 /min Angelika De La Torre [facility] Work Phone: 07-28-2017 17:130400 Weight 75.21 kg Angelika De La Torre [facility] Work Phone: 02-04-2012 [id number] BSA (Body Surface Area) 1.75 m2 Angelika De La Torre [facility] Work Phone: Encounters Encounter Date Encounter Type Care Provider Facility Start: 06-27-2025 ambulatory Lizet Richardson ty:[facility] Start: 06-15-2025 End: 06-15-2025 Dr. Juan Whatley MD -[facility] Work Phone: Start: 06-15-2025 End: 06-15-[address] Lizet Linares MD Work Phone: -[facility] Start: 06-11-2025 ambulatory Lizet NOLASCO Fa cility:[facility] Start: 06-11-2025 Lizet Linares MD [facility] Start: 06-07-2025 End: 06-07-2025 Dr. Juan Whatley MD -[facility] Work Phone: Start: 06-07-2025 End: 06-07-[address] Lizet Linares MD Work Phone: -[facility] Start: 06-05-2025 End: 06-05-[address] Lizet Linares MD Work Phone: -[facility] Start: 06-05-2025 End: 06-05-2025 Dr. Lizet Linares MD -[facility] Work Phone: Start: 06-04-2025 ambulatory Lizet Richardson ty:[facility] Start: 06-04-2025 Registered Referred Efewongbe Oleghe MD [facility] Start: 06-04-2025 Lizet Linares MD [facility] Start: 06-01-2025 Non-patient / Non-visit Dr. Juan lan MD [facility] Start: 06-01-2025 Dr. Juan Whatley MD [facility] Start: 05-31-2025 Non-patient / Non-visit Dr. Juan lan MD [facility] Start: 05-31-2025 Dr. Juan Whatley MD [facility] Start: 05-31-2025 Non-patient / Non-visit Dr. John hawk MD [facility] Work Phone: Start: 05-31-2025 Dr. John Shaw MD [facility] Work Phone: Start: 05-30-2025 Non-patient / Non-visit Dr. Juan lan MD [facility] Start: 05-30-2025 Dr. Juan Whatley MD [facility] Start: 05-30-2025 Non-patient / Non-visit Dr. John hawk MD [facility] Work Phone: Start: 05-30-2025 Dr. [facility] Shaw [facility] Work Phone: Start: 05-29-2025 Non-patient / Non-[facility] Work Phone: Start: 05-29-2025 Dr. John Shaw MD [facility] Work Phone: Start: 05-28-2025 End: 05-28-[address] Lizet Linares MD Work Phone: -[facility] Start: 05-28-2025 End: 05-28-2025 Ana Maria Geller NP-C -[facility] Work Phone: Start: 05-28-2025 ambulatory Chavez carrilloty:[facility] Start: 05-28-2025 End: 06-01-2025 Evaluation and management of inpatient Dr. Chavez Alcala DO -[facility] Work Phone: Start: 05-28-2025 End: 06-01-2025 Dr. John Shaw MD -[facility] Work Phone: Start: 05-26-2025 End: 05-26-2025 Dr. Lizet Linares MD Work Phone: -Emergency Department Work Phone: Start: 05-26-2025 End: 05-26-2025 Emergency department patient visit Dr. Lizet Linares MD Work Phone: -Emergency Department Work Phone: Start: 05-25-2025 End: 05-25-[address] Lizet Linares MD Work Phone: [facility] Start: 05-25-2025 End: 05-25-2025 Ana Mariatom Geller [facility] Work Phone: Start: 05-07-2025 End: 05-07-2025 Patient encounter procedure Ana Maria Geller [facility] Work Phone: Start: 05-07-2025 End: 05-07-[address] Lizet Linares MD Work Phone: [facility] Start: 05-07-2025 Registered Referred Lizet Linares MD [facility] Start: 05-07-2025 End: 05-07-2025 Lizet Linares MD [facility] Start: 05-04-2025 End: 05-04-[address] Lizet Linares MD Work Phone: [facility] Start: 05-04-2025 End: 05-04-2025 Patient encounter procedure Ana Maria Geller [facility] Work Phone: Start: 05-04-2025 End: 05-04-2025 Ana Maria Geller [employer] Work Phone: Start: 05-03-2025 ambulatory Efewongbe Oleghe Facili ty:[facility] Start: 05-01-2025 End: 05-01-[address] Lizet Linares MD Work Phone: [facility] Start: 05-01-2025 End: 05-01-2025 Patient encounter procedure [facility] Start: 05-01-2025 End: 05-01-2025 [facility] Work [facility]: Start: 04-25-2025 ambulatory Efewongbe Oleghe Facili ty:[facility] Start: 04-25-2025 [facility] Start: 04-25-2025 Lizet Linares MD [facility] Start: 04-20-2025 End: 04-20-[address] Lizet Linares MD Work Phone: [facility] Start: 04-20-2025 End: 04-20-2025 Patient encounter procedure Ana Maria Geller [facility] Work Phone: Start: 04-20-2025 End: 04-20-2025 Ana Maria Geller [facility] Work Phone: Start: 04-12-2025 ambulatory Efewongbe Oleghe Facili ty:[facility] Start: 04-12-2025 [facility]: 04-12-[facility]25 [facility] Start: 04-12-2025 End: 04-12-[address] Lizet Linares MD Work Phone: [facility] Start: 04-12-2025 End: 04-12-2025 Patient encounter procedure Claude REYNOLDS [facility] Work Phone: Start: 04-12-2025 End: 04-12-2025 Claude REYNOLDS [facility] Work Phone: Start: 04-06-2025 ambulatory Lizet Richardson ty:[facility] Start: 04-06-2025 Registered Referred Lizet Linares MD -[facility] Start: 04-06-2025 Lizet Linares MD -[facility] Start: 03-29-[facility] Start: 03-29-2025 Registered Referred Lizet Linares MD -[facility] Start: 03-29-2025 Lizet Linares MD -[facility] Start: 03-27-2025 End: 03-27-[address] Lizet Linares MD Work Phone: [facility] Start: 03-27-2025 End: 03-27-[address] Lizte Linares MD -[facility] Work Phone: Start: 03-27-2025 End: 03-27-2025 Dr. Lizet Linares MD -[facility] Work Phone: Start: 03-21-2025 End: 04-12-2025 ambulatory Dwayne Lopez MD Work Phone: [address] [place] [address] Comment on above: Diabetes Start: 03-20-2025 End: 03-20-2025 ambulatory Dwayne Lopez MD Work Phone: [facility] Start: 03-20-2025 End: 03-20-2025 Patient encounter procedure Dwayne Lopez MD Work Phone: [facility] Comment on above: Population Health Na vigation Outreach [place] [place] Start: 03-13-2025 End: 03-13-[address] Lizet Linares MD Work Phone: [facility] Start: 03-13-2025 End: 03-13-2025 Patient encounter procedure Ana Maria Geller [employer] Work Phone: Start: 03-13-2025 End: 03-13-2025 Ana Maria Geller [employer] Work Phone: Start: 03-12-2025 End: 03-12-[address] Lizet Linares MD Work Phone: [facility] Work Phone: Start: 03-12-2025 End: 03-12-2025 Departed Referred Lizet Linares MD [facility] Start: 03-12-2025 End: 03-12-2025 Lizet Linares MD [facility] Start: 03-12-2025 End: 03-12-2025 ambulatory Lizet NOLASCO Facility:[facility] Start: 03-08-2025 End: 03-08-[address] Lizet Linares MD Work Phone: [facility] Start: 03-08-2025 End: 03-08-2025 Patient encounter procedure Ana Maria Geller [employer] Work Phone: Start: 03-08-2025 End: 03-08-2025 Ana Maria Geller [employer] Work Phone: Start: 03-05-2025 End: 03-05-2025 Patient encounter procedure Ana Maria Geller [employer] Work Phone: Start: 03-05-2025 End: 03-05-[address] Lizet Linares MD Work Phone: [facility] Start: 03-05-2025 Registered Referred Ana Maria Geller [employer] -[facility] Start: 03-05-2025 End: 03-05-2025 Ana Maria Geller [employer] -[facility] Work Phone: Start: 02-26-2025 End: 02-26-[address] Lizet Linares MD Work Phone: -[facility] Start: 02-26-2025 End: 02-26-2025 Patient encounter procedure Ana Maria Geller NP-C -[facility] Work Phone: Start: 02-26-2025 End: 02-26-2025 Ana Maria Geller [employer]- -[facility] Work Phone: Start: 02-12-2025 End: 02-12-2025 ambulatory Elizabeth Jennings [facility] Work Phone: [facility] Start: 02-12-2025 End: 02-12-2025 Patient encounter procedure Elizabeth Jennings [facility] Work Phone: [facility] Start: 02-06-2025 End: 03-09-2025 ambulatory Dwayne Lopez MD Work Phone: [facility] Start: 01-30-2025 End: 01-30-2025 Patient encounter procedure Shonda Chávez [place] -[facility] Work Phone: Start: 01-30-2025 End: 01-30-2025 ambulatory Efewongbe Oleghe Facility:[facility] Start: 01-23-2025 End: 01-23-2025 ambulatory Efewongbe Oleghe Facility:[facility] Start: 01-23-2025 End: 01-23-[address] Lizet Linares MD -[facility] Work Phone: Start: 01-22-2025 End: 01-22-2025 ambulatory Efmarcelle Linares Facility:[facility] Start: 01-22-2025 End: 01-22-2025 Patient encounter procedure Ana Maria MOODY -[facility] Work Phone: Start: 01-22-2025 End: 01-22-2025 Ana Maria MOODY [facility] Work Phone: Start: 01-22-2025 End: 01-22-2025 Dr. Lizet Linares MD Work Phone: -Emergency Department Work Phone: Start: 01-22-2025 End: 01-22-2025 Emergency department patient visit Dr. Lizet Linares MD Work Phone: [facility] Work Phone: Start: 01-05-2025 End: 01-05-2025 ambulatory Dwayne Lopez MD Work Phone: [facility] Comment on above: Allied Health Visit (Medication Adherence Outreach/) Start: 01-05-2025 End: 01-05-2025 Departed Referred Lizet Linares MD [facility] Start: 01-05-2025 End: 01-05-2025 Lizet Linares MD [facility] Start: 01-04-2025 End: 01-05-2025 ambulatory Lizet Linares OLS Facility:[facility] Start: 01-04-2025 End: 01-04-2025 Patient encounter procedure Claude REYNOLDS [facility] Work Phone: Start: 01-04-2025 End: 01-04-2025 Claude REYNOLDS [facility] Work Phone: Start: 12-07-2024 ambulatory Lizet Linares OLS Fa cility:[facility] Start: 12-07-2024 [facility] Start: 12-07-2024 Lizet Linares MD [facility] Start: 11-30-2024 ambulatory Efewjanellbe Germane OLS Fa cility:[facility] Start: 11-30-2024 [facility]: 11-30-2024 [facility] Start: 11-29-2024 End: 11-29-2024 ambulatory Ashish Marusa MA [facility] Start: 11-29-2024 End: 11-29-2024 Patient encounter procedure Ashish Bray MA [facility] Comment on above: Population Health Na vigation Outreach ([facility] [place]) Start: 11-28-2024 End: 11-28-2024 ambulatory Efewongbe Tayjne Facility:[facility] Start: 11-28-2024 End: 11-28-[address] Lizet Linares MD -[facility] Work Phone: Start: 11-28-2024 End: 11-28-2024 Dr. Lizet Linares MD -[facility] Work Phone: Start: 11-24-2024 ambulatory Efmarcelle Linares OLS Fa cility:[facility] Start: 11-24-2024 Lizet Linares MD [facility] Start: 11-17-2024 End: 11-17-2024 Lizet Linares MD [facility] Start: 11-17-2024 End: 11-17-2024 ambulatory Efewongbe Germane OLS Facility:[facility] Start: 11-10-2024 End: 11-10-2024 Lizet Linares MD [facility] Start: 11-10-2024 End: 11-10-2024 ambulatory Efewongbe Germane OLS Facility:[facility] Start: 11-03-2024 ambulatory Efewongbe Tayghe OLS Fa cility:[facility] Start: 11-03-2024 Lizet Linares MD [facility] Start: 11-01-2024 End: 11-01-2024 Lizet Linares MD [facility] Start: 11-01-2024 End: 11-01-2024 ambulatory Efewongbe Oleghe OLS Facility:[facility] Start: 10-27-2024 End: 10-27-2024 ambulatory Ana Maria Geller [employer] Facility:[facility] Start: 10-27-2024 End: 10-27-2024 Ana Maria MOODY -[facility] Work Phone: Start: 10-24-2024 End: 10-24-2024 Dr. Salvador Campbell [facility] Work [facility] Start: 10-24-2024 End: 10-24-2024 Emergency department patient visit Salvador Campbell Facility:[facility] Start: 10-20-2024 ambulatory Efewongbe Oleghe OLS Fa cility:[facility] Start: 10-20-2024 Lizet Linares MD [facility] Start: 10-13-2024 ambulatory Efewongbe Oleghe OLS Fa cility:[facility] Start: 10-13-2024 Lizet Linares MD [facility] Start: 10-06-2024 ambulatory Efewongbe Oleghe OLS Fa cility:[facility] Start: 10-06-2024 End: 10-06-2024 Lizet Linares MD [facility] Start: 10-06-2024 End: 10-06-2024 ambulatory Efewongbe Oleghe Facility:[facility] Start: 09-29-2024 End: 09-29-2024 Lizet Linares MD [facility] Start: 09-29-2024 End: 09-29-2024 ambulatory Efewongbe Oleghe OLS Facility:[facility] Start: 09-26-2024 End: 09-27-2024 ambulatory Efewongbe Oleghe Facility:[facility] Start: 09-26-2024 End: 09-27-2024 Dr. Lizet Linares MD -[facility] Work Phone: Start: 09-22-2024 End: 09-22-2024 ambulatory Efewongbe Oleghe OLS Facility:[facility] Start: 09-20-2024 End: 09-20-2024 ambulatory Efewongbe Oleghe OLS Facility:[facility] Start: 09-15-2024 End: 09-15-2024 ambulatory Efewongbe Oleghe Facility:[facility] Start: 09-13-2024 End: 09-13-2024 ambulatory Ana Maria Geller JED Facility:[facility] Start: 09-08-2024 End: 09-08-2024 [facility]ulatory [facility] [place] [facility] Start: 09-08-2024 End: 09-08-2024 Patient encounter procedure Irena Wild [facility] Comment on above: Population Health Na vigation Outreach ([place] No PCP ) Start: 09-08-2024 End: 09-08-2024 ambulatory Efewongbe Oleghe OLS Facility:[facility] Start: 09-01-2024 ambulatory Efewongbe Oleghe OLS Fa cility:[facility] Start: 08-25-2024 End: 08-25-2024 ambulatory Efewbarranquitasbe Oleghe Facility:[facility] Start: 08-19-2024 End: 08-20-2024 Emergency department patient visit Efchristaongbe Germane Facility:[facility] Start: 08-18-2024 End: 08-18-2024 ambulatory Efewongbe Oleghe Facility:[facility] Start: 08-11-2024 End: 08-11-2024 ambulatory Efewongbe Oleghe OLS Facility:[facility] Start: 08-04-2024 ambulatory Efewongbe Oleghe OLS Fa cility:[facility] Start: 08-02-2024 End: 08-02-2024 ambulatory Efewongbe Oleghe Facility:[facility] Start: 08-01-2024 End: 08-01-2024 ambulatory Efewongbe Oleghe Facility:[facility] Start: 07-28-2024 ambulatory Efewongbe Oleghe OLS Fa cility:[facility] Start: 07-21-2024 ambulatory Efewongbe Oleghe OLS Fa cility:[facility] Start: 07-14-2024 ambulatory Efewongbe Oleghe OLS Fa cility:[facility] Start: 07-08-2024 End: 07-08-2024 Emergency department patient visit Efewongbe Oleghe Facility:[facility] Start: 07-07-2024 ambulatory Efewongbe Oleghe Facili ty:[facility] Start: 07-04-2024 End: 07-04-2024 ambulatory Efewongbe Oleghe Facility[facility] Start: 06-28-2024 [facility] Start: 04-06-2024 ambulatory Mel Peacock RN Work Phone: [employer] Comment on above: ACM TIARA RN Start: 03-28-2024 ambulatory Mel Peacock RN Work Phone: [employer] Start: 03-21-2024 Refill Dwayne Lopez MD Work Phone: [facility] [employer] Comment on above: Refill Request Start: 03-08-2024 ambulatory Dwayne Lopez MD Work Phone: Internal Medicine [facility] [place] Start: 02-25-2024 Dr. Jarred Lopez Work Phone: [facility] Start: 02-18-2024 End: 02-18-[address] Jarred Lopez Work Phone: [facility] Work Phone: Start: 02-18-2024 End: 02-18-2024 Dr. Jarred Lopez Work Phone: [facility] Start: 02-17-2024 ambulatory Annabel Agrawal [facility] [place] Start: 02-17-2024 Patient encounter procedure Annabel Agrawal [facility] [place] Comment on above: Population Health Na vigation Outreach ([facility] SARITA 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 - AWV, [facility] Start: 02-11-2024 End: 02-11-[address] Jarred Lopez Work Phone: [facility] Work Phone: Start: 02-11-2024 End: 02-11-2024 Dr. Jarred Lopez Work Phone: [facility] Start: 02-10-2024 ambulatory Dwayne Lopez MD Work Phone: [facility] Comment on above: Allied Health Visit (Medication Adherence Outreach ) Start: 02-09-2024 Dr. Jarred Lopez Work Phone: [facility] Start: 02-04-2024 End: 02-04-[address] Jarred Lopez Work Phone: [facility] Work Phone: Start: 02-04-2024 End: 02-04-2024 Dr. Jarred Lopez Work Phone: [facility] Start: 02-02-2024 End: 02-02-[address] Jarred Lopez Work Phone: [facility] Work Phone: Start: 02-02-2024 End: 02-02-2024 Dr. Jarred Lopez Work Phone: [facility] Start: 02-01-2024 End: 02-01-2024 Dr. Jarred Lopez Work Phone: [facility] Work Phone: Start: 01-28-2024 Dr. Jarred Lopez Work Phone: [facility] Start: 01-24-2024 Telephone encounter Jarred Lopez MD Work Phone: [facility] [place] Comment on above: Appointment Start: 01-21-2024 Dr. Jarred Lopez Work Phone: [facility] Start: 01-20-2024 End: 01-20-2024 Emergency department patient visit Dr. Jarred Lopez Work Phone: [facility] Work Phone: Start: 01-20-2024 End: 01-20-2024 Dr. Jarred Lopez Work Phone: [facility] Work Phone: Start: 01-19-2024 Dr. Jarred Lopez Work Phone: [facility] Start: 01-17-2024 Dr. Jarred Lopez Work Phone: [facility] Start: 01-14-2024 Dr. Jarred Lopez Work Phone: [facility] Start: 01-12-2024 Dr. Jarred Lopez Work Phone: [phone] [place] [address] Start: 01-07-2024 Dr. Jarred Lopez Work Phone: [facility] Start: 01-06-2024 ambulatory Rachel Perea LPN [facility] Start: 01-06-2024 Telephone encounter Jarred Lopez MD Work Phone: [facility] [place] Comment on above: Appointment (Hospita l follow [...] / Non-visit Dr. Adriana Lopez Work Phone: [facility] Start: 01-03-2024 Dr. Jarred Lopez [facility] Start: 01-02-2024 Non-patient / Non-visit Dr. Adriana Lopez Work Phone: [facility] Work Phone: Start: 01-02-2024 Dr. Jarred Lopez Work Phone: [facility] Work Phone: Start: 01-01-2024 Evaluation and manag ement of inpatient Dr. Jarred Lopez [facility] Work Phone: Start: 01-01-2024 End: 01-05-[address] Jarred Lopez Work Phone: [facility] Work Phone: Start: 01-01-2024 End: 01-05-2024 Dr. Jarred Lopez [facility] Work [facility]: Start: 12-31-2023 End: 12-31-[address] Jarred Lopez Work Phone: [facility] Work Phone: Start: 12-31-[address] Luis Carlos Lopez Work Phone: [facility] Start: 12-31-2023 End: 12-31-2023 Dr. Jarred Lopez Work Phone: [facility] Start: 12-29-2023 End: 12-29-[address] Jarred Lopez Work Phone: [facility] Work Phone: Start: 12-29-[address] Luis Carlos Lopez Work Phone: [facility] Start: 12-29-2023 End: 12-29-2023 Dr. Jarred Lopez Work Phone: [facility] Start: 12-24-2023 End: 12-24-[address] Jarred Lopez Work Phone: [facility] Work Phone: Start: 12-24-[address] Luis Carlos Lopez Work Phone: [facility] Start: 12-24-2023 End: 12-24-2023 Dr. Jarred Lopez Work Phone: [facility] Start: 12-17-2023 End: 12-17-[address] Jarred Lopez Work Phone: [facility] Work Phone: Start: 12-17-2023 End: 12-17-[address] Jarred Lopez Work Phone: [facility] Start: 12-17-[address] Luis Carlos Lopez Work Phone: [facility] Start: 12-17-2023 End: 12-17-2023 Dr. Jarred Lopez Work Phone: [facility] Start: 12-10-[address] Luis Carlos Lopez Work Phone: [facility] Start: 12-10-2023 Dr. Jarred Lopez Work Phone: [facility] Start: 12-07-2023 End: 12-07-2023 Dr. Jarred Lopez Work Phone: [facility] Work Phone: Start: 11-26-[address] Luis Carlos Lopez Work Phone: [facility] Start: 11-26-2023 Dr. Jarred Lopez Work Phone: [facility] Start: 11-25-2023 End: 11-25-2023 Dr. Jarred [...] Start: 11-23-2023 Dr. Jarred Lopez Work Phone: [facility] Work Phone: Start: 11-22-2023 Non-patient / Non-visit Dr. Adriana Lopez Work Phone: [facility] Work Phone: Start: 11-22-2023 Dr. Jarred Lopez [facility] [...] of inpatient Dr. Jarred Lopez Work Phone: [facility] Work Phone: Start: 11-19-[address] Lincoln Lopez Work Phone: [facility] Work Phone: Start: 11-19-2023 End: 11-24-2023 Dr. Jarred Lopez Work Phone: [facility] Work Phone: Start: 09-20-2023 ambulatory Dwayne Lopez MD Work Phone: [facility] Comment on above: Allied Health Visit (Medication Adherence Outreach ) Start: 08-20-2023 ambulatory Dwayne Lopez MD Work Phone: [facility] Comment on above: Allied Health Visit (Medication Adherence Outreach ) Start: 08-18-2023 ambulatory Irena REYES [facility] [place] Comment on above: Population Health Na vigation Outreach ([place] care gaps ) Refill Request Start: 06-10-2023 End: 06-10-2023 Emergency department patient visit Dr. Ganesh Garcia Work Phone: [facility] Work Phone: Start: 06-10-2023 ambulatory Dwayne Lopez MD Work Phone: [facility] Comment on above: Constipation Start: 06-07-2023 Telephone encounter Jarred Lopez MD Work Phone: [facility] Comment on above: Appointment (ER foll ow up visit) Start: 06-06-2023 End: 06-06-2023 Emergency department patient visit Dr. Ganesh Garcia [facility] Work Phone: Start: 06-04-2023 End: 06-04-2023 Emergency department patient visit Dr. Ganesh Garcia [facility] Work [facility]: Start: 05-20-2023 ambulatory Dwayne Lopez MD Work Phone: [facility] Comment on above: Allied Health Visit (Medication Adherence Outreach/) Refill Request Start: 05-04-2023 ambulatory Dwayne Lopez MD Work Phone: [facility] Start: 04-23-2023 End: 04-23-2023 Patient encounter procedure Vernon Degroot APRN.CNP Work Phone: [place] [facility] Comment on above: Toothache (Primary D x) Start: 04-08-2023 ambulatory Pcp ([facility] Start: 04-07-2023 Telephone encounter Jarred Lopez MD Work Phone: Family [facility] Comment on above: Appointment Start: 04-07-2023 End: 04-07-2023 Patient encounter procedure Dwayne Lopez MD Work Phone: [facility] Comment on above: Generalized weakness (Primary Dx); [...] patient visit Dr. Lizet Linares Work Phone: [facility] Start: 03-24-2023 End: 03-24-2023 Patient encounter procedure Dwayne Lopez MD Work Phone: [facility] Comment on above: Globus sensation (Pr imary Dx); Gastroesophageal reflux disease, unspecified whether esophagitis present Start: 03-17-2023 End: 03-17-[address] Ganesh Garcia Work Phone: [facility] Work Phone: Start: 03-16-2023 End: 03-16-[address] Lizet Linares Work Phone: [facility] Work Phone: Start: 03-16-2023 End: 03-16-[address] Lizet Linares Work Phone: [facility] Start: 03-09-2023 End: 03-09-[address] Ganesh Garcia Work Phone: [facility] Work Phone: Start: 03-02-2023 End: 03-02-[address] Lizet Linares Work Phone: [facility] Start: 03-01-2023 End: 03-01-[address] Lizet Linares Work Phone: [facility] Start: 02-23-2023 ambulatory No Pcp [facility] Comment on above: Allied Health Visit (Medication Adherence Outreach ) Start: 02-16-2023 End: 02-16-[address] Lizet Linares Work Phone: [facility] Start: 02-11-2023 End: 02-11-[address] Lizet Linares Work Phone: [facility] Start: 02-02-2023 End: 02-02-[address] Lizet Linares Work Phone: [facility] Start: 02-02-2023 Dr. Lizet Linares Work Phone: [facility] Start: 01-30-2023 End: 01-30-[address] Lizet Linares Work Phone: [facility] Start: 01-29-2023 End: 01-30-2023 Emergency department patient visit Dr. Lizet Linares Work Phone: [facility] Start: 01-29-2023 End: 01-30-2023 Dr. Lizet Linares Work Phone: [facility] Start: 01-26-2023 End: 01-26-[address] Lizet Linares Work Phone: [facility] Work Phone: Start: 01-26-2023 End: 01-26-[address] Lizet Linares Work Phone: [facility] Start: 01-26-2023 End: 01-26-2023 Dr. Lizet Linares Work Phone: [facility] Start: 01-19-2023 End: 01-19-[address] Lizet Linares Work Phone: [facility] Work Phone: Start: 01-19-2023 End: 01-19-[address] Lizet Linares Work Phone: [facility] Start: 01-19-[address] Shadia Linares Work Phone: [facility] Start: 01-19-2023 End: 01-19-2023 Dr. Lizet Linares Work Phone: [facility] Start: 01-18-2023 End: 01-18-[address] Lizet Linares Work Phone: [facility] Work Phone: Start: 01-18-2023 End: 01-18-[address] Lizet Linares Work Phone: [facility] Start: 01-18-2023 End: 01-18-2023 Dr. Lizet Linares Work Phone: [facility] Start: 01-08-2023 End: 01-08-[address] Lizet Linares Work Phone: [facility] Start: 01-08-2023 End: 01-08-2023 Dr. Lizet Linares Work Phone: [facility] Start: 01-07-2023 End: 01-07-[address] Lziet Linares Work Phone: [facility] Start: 01-07-2023 End: 01-07-2023 Dr. Lizet Linares Work Phone: [facility] Start: 01-07-2023 End: 01-07-2023 Emergency department patient visit Dr. Ganesh Garcia Work Phone: [facility] Work Phone: Start: 01-07-2023 End: 01-07-2023 Dr. Ganesh Garcia Work Phone: [facility] Start: 01-06-2023 End: 01-06-2023 Emergency department patient visit Dr. Ganesh Garcia Work Phone: [facility] Work Phone: Start: 01-06-2023 End: 01-06-2023 Dr. Ganesh Garcia Work Phone: [facility] Start: 01-05-2023 End: 01-05-[address] Lizet Linares Work Phone: [facility] Start: 01-05-2023 End: 01-05-[address] Lizet Linares Work Phone: [facility] Work Phone: Start: 01-05-2023 End: 01-05-[address] Lizet Linares Work Phone: [facility] Start: 01-05-2023 End: 01-05-2023 Dr. Ganesh Garcia Work Phone: [facility] Start: 01-04-2023 End: 01-04-[address] Lizet Linares Work Phone: [facility] Start: 01-04-2023 End: 01-04-2023 Dr. Lizet Linares Work Phone: [facility] Start: 01-01-2023 ambulatory Donnell Johnniejose [facility] Work Phone: [employer] Comment on above: Medication Update (S tatin use review ) Start: 12-28-2022 End: 12-28-[address] Lizet Linares Work Phone: [facility] Work Phone: Start: 12-28-2022 End: 12-28-[address] Lizet Linares Work Phone: [facility] Start: 12-28-2022 End: 12-28-2022 Dr. Ganesh Garcia Work Phone: [facility] Start: 12-24-2022 End: 12-24-[address] Lizet Linares Work Phone: [facility] Start: 12-24-2022 End: 12-24-2022 Dr. Lizet Linares Work Phone: [facility] Start: 12-23-2022 End: 12-23-[address] Lizet Linares Work Phone: [facility] Work Phone: Start: 12-23-2022 End: 12-23-[address] Lizet Linares Work Phone: [facility] Start: 12-23-2022 End: 12-23-2022 Dr. Ganesh Garcia Work Phone: [facility] Start: 12-22-2022 End: 12-22-[address] Lizet Linares Work Phone: [facility] Work Phone: Start: 12-22-2022 End: 12-22-[address] Lizet Linares Work Phone: [facility] Start: 12-22-2022 End: 12-22-2022 Dr. Ganesh Garcia Work Phone: [facility] Start: 12-21-2022 End: 12-21-[address] Lizet Linares Work Phone: [facility] Start: 12-21-2022 End: 12-21-2022 Dr. Ganesh Garcia Work Phone: [facility] Start: 12-14-2022 End: 12-14-[address] Lizet Linares Work Phone: [facility] Work Phone: Start: 12-14-2022 End: 12-14-[address] Lizet Linares Work Phone: [facility] Start: 12-14-2022 End: 12-14-2022 Dr. Ganesh Garcia Work Phone: [facility] Start: 12-09-2022 Non-patient / Non-visit Dr. Barbara Garcia Work Phone: [facility] Start: 12-09-2022 Dr. Ganesh hatch Work Phone: [facility] Start: 12-08-2022 End: 12-08-[address] Lizet Linares Work Phone: [facility] Start: 12-08-2022 End: 12-08-[address] Lizet Linares Work Phone: [facility] Start: 12-08-[address] Ganesh horne Work Phone: [facility] Start: 12-08-2022 End: 12-08-2022 Dr. Ganesh Garcia Work Phone: [facility] Start: 11-24-2022 End: 11-24-[address] Ganesh Garcia Work Phone: [facility] Work Phone: Start: 11-24-2022 End: 11-24-[address] Ganesh Garcia Work Phone: [phone] [place] [address] Start: 11-24-2022 End: 11-24-2022 Dr. Ganesh Garcia Work Phone: [phone] [place] [address] Start: 11-10-2022 End: 11-10-[address] Ganesh Garcia Work Phone: [phone] [place] [address] Start: 11-10-2022 End: 11-10-2022 Dr. Ganesh Garcia Work Phone: [phone] [address] Start: 11-10-2022 End: 11-10-[address] Ganesh Garcia Work Phone: [phone] [place] [address] Work Phone: Start: 11-10-2022 End: 11-10-[address] Ganesh Garcia Work Phone: [phone] [place] [address] Start: 11-10-[address] Ganesh horne Work Phone: [phone] [place] [address] Start: 11-10-2022 End: 11-10-2022 Dr. Ganesh Garcia Work Phone: [phone] [place] [address] Start: 11-09-2022 End: 11-09-[address] Ganesh Garcia Work Phone: [phone] [place] [address] Start: 11-09-2022 End: 11-09-2022 Dr. Ganesh Garcia Work Phone: [facility] Start: 11-05-2022 End: 11-05-[address] Ganesh Garcia Work Phone: [facility] Start: 11-05-2022 End: 11-05-2022 Dr. Ganesh Garcia Work Phone: [facility] Start: 11-05-2022 End: 11-05-2022 Emergency department patient visit Dr. Ganesh Garcia Work Phone: [facility] Start: 11-05-2022 End: 11-05-2022 Dr. Ganesh Garcia Work Phone: [facility] Start: 10-30-2022 End: 10-30-[address] Ganesh Garcia Work Phone: [phone] [place] [address] Work Phone: Start: 10-30-2022 End: 10-30-[address] Ganesh Garcia Work Phone: [phone] [place] [address] Start: 10-30-[address] Ganesh horne Work Phone: [phone] [place] [address] Start: 10-30-2022 End: 10-30-2022 Dr. Ganesh Garcia Work Phone: [phone] [place] [address] Start: 10-28-2022 End: 10-28-[address] Ganesh Garcia Work Phone: [phone] [place] [address] Start: 10-28-2022 End: 10-28-2022 Dr. Ganesh Garcia Work Phone: [phone] [place] [address] Start: 10-27-2022 End: 10-27-[address] Ganesh Garcia Work Phone: [facility] Work Phone: Start: 10-27-2022 End: 10-27-[address] Ganesh Garcia Work Phone: [facility] Start: 10-27-[address] Ganesh horne Work Phone: [phone] [place] [address] Start: 10-27-2022 End: 10-27-2022 Dr. Ganesh Garcia Work Phone: [phone] [place] [address] Start: 10-21-2022 End: 10-21-[address] Ganesh Garcia Work Phone: [facility] Start: 10-21-2022 End: 10-21-2022 Dr. Ganesh Garcia Work Phone: [facility] Start: 10-13-2022 End: 10-13-[address] Ganesh Garcia Work Phone: [facility] Work Phone: Start: 10-13-2022 End: 10-13-[address] Ganesh Garcia Work Phone: [facility] Start: 10-13-[address] Ganesh horne Work Phone: [phone] [place] [address] Start: 10-13-2022 End: 10-13-2022 Dr. Ganesh Garcia Work Phone: [phone] [place] [address] Start: 10-12-2022 End: 10-12-[address] Ganesh Garcia Work Phone: [facility] Start: 10-12-2022 End: 10-12-2022 Dr. Ganesh Garcia Work Phone: [facility] Start: 10-09-2022 End: 10-09-2022 Emergency department patient visit Dr. Ganesh Garcia Work Phone: [facility] Start: 10-09-2022 End: 10-09-2022 Dr. Ganesh Garcia Work Phone: [facility] Start: 09-29-2022 End: 09-29-[address] Ganesh Garcia Work Phone: [facility] Start: 09-29-[address] Ganesh horne Work Phone: [facility] Start: 09-29-2022 End: 09-29-2022 Dr. Ganesh Garcia Work Phone: [phone] [place] [address] Start: 09-15-2022 End: 09-15-[address] Ganesh Garcia Work Phone: [facility] Work Phone: Start: 09-15-2022 End: 09-15-[address] Ganesh Garcia Work Phone: [phone] [place] [address] Start: 09-15-[address] Ganesh horne Work Phone: [facility] Start: 09-15-2022 End: 09-15-2022 Dr. Ganesh Garcia Work Phone: [phone] [place] [address] Start: 09-11-2022 End: 09-11-[address] Ganesh Garcia Work Phone: [phone] [place] [address] Work Phone: Start: 09-11-2022 End: 09-11-[address] Ganesh Garcia Work Phone: [phone] [place] [address] Start: 09-11-[address] Ganesh horne Work Phone: [phone] [place] [address] Start: 09-11-2022 End: 09-11-2022 Dr. Ganesh Garcia Work Phone: [phone] [place] [address] Start: 09-09-2022 End: 09-09-[address] Ganesh Garcia Work Phone: [facility] Start: 09-09-2022 End: 09-09-2022 Dr. Ganesh Garcia Work Phone: [facility] Start: 09-01-2022 End: 09-01-[address] Ganesh Garcia Work Phone: [facility] Start: 09-01-2022 End: 09-01-[address] Ganesh Garcia Work Phone: [facility] Work Phone: Start: 09-01-2022 End: 09-01-[address] Ganesh Garcia Work Phone: [facility] Start: 08-24-2022 End: 08-24-[address] Ganesh Garcia Work Phone: [facility] Start: 08-24-2022 End: 08-24-2022 Emergency department patient visit Dr. Ganesh Garcia Work Phone: [facility] Start: 08-18-2022 End: 08-18-[address] Ganesh Garcia Work Phone: [facility] Work Phone: Start: 08-18-2022 End: 08-18-[address] Ganesh Garcia Work Phone: [facility] Start: 08-18-[address] Luis Carlos Lopez Work Phone: [facility] Start: 08-04-2022 End: 08-04-[address] Jarred Lopez Work Phone: [facility] Work Phone: Start: 08-04-2022 End: 08-04-[address] Jarred Lopez Work Phone: [facility] Start: 08-04-[address] Luis Carlos Lopez Work Phone: [facility] Start: 07-20-2022 End: 07-20-[address] Jarred Lopez Work Phone: [facility] Work Phone: Start: 07-20-2022 End: 07-20-[address] Jarred Lopez Work Phone: [facility] Start: 07-20-[address] Luis Carlos Lopez Work Phone: [facility] Start: 07-13-2022 End: 07-13-[address] Ganesh Garcia Work Phone: [facility] Start: 07-13-[address] Luis Carlos Lopez Work Phone: [facility] Start: 07-07-2022 End: 07-07-[address] Jarred Lopez Work Phone: [facility] Start: 07-07-[address] Luis Carlos Lopez Work Phone: [facility] Start: 07-03-2022 End: 07-03-[address] Jarred Lopez Work Phone: [facility] Work Phone: Start: 07-03-2022 End: 07-03-[address] Jarred Lopez Work Phone: [facility] Start: 07-03-[address] Luis Carlos Lopez Work Phone: [facility] Start: 07-02-2022 Non-patient / Non-visit Dr. Adriana Lopez Work Phone: [facility] Start: 07-02-2022 End: 07-02-[address] Jarred Lopez Work Phone: [facility] Start: 07-01-2022 End: 07-01-[address] Jarred Lopez Work Phone: [facility] Work Phone: Start: 07-01-2022 End: 07-01-[address] Jarred Lopez Work Phone: [facility] Start: 07-01-[address] Luis Carlos Lopez Work Phone: [facility] Start: 06-23-2022 End: 06-23-[address] Jarred Lopez Work Phone: [facility] Work Phone: Start: 06-23-2022 End: 06-23-[address] Jarred Lopez Work Phone: [facility] Start: 06-12-2022 End: 06-12-[address] Jarred Lopez Work Phone: [facility] Work Phone: Start: 06-12-2022 End: 06-12-[address] Jarred Lopez Work Phone: [facility] Start: 06-12-2022 End: 06-12-[address] Jarred Lopez Work Phone: [facility] Start: 06-09-2022 Non-patient / Non-visit Dr. Adriana Lopez Work Phone: [facility] Start: 06-09-2022 End: 06-09-[address] Jarred Lopez Work Phone: [facility] Start: 06-09-[address] Luis Carlos Lopez Work Phone: [facility] Start: 05-26-[address] Luis Carlos Lopez Work Phone: [facility] Start: 05-21-2022 Non-patient / Non-visit Dr. Adriana Lopez Work Phone: [facility] Start: 05-21-2022 End: 05-21-2022 Evaluation and management of inpatient Dr. Jarred Lopez Work Phone: [facility] Start: 05-20-2022 End: 05-20-[address] Jarred Lopez Work Phone: [facility] Start: 05-20-[address] Luis Carlos Lopez Work Phone: [facility] Start: 05-12-2022 End: 05-12-[address] Jarred Lopez Work Phone: [facility] Start: 05-12-[address] Luis Carlos Lopez Work Phone: [facility] Start: 05-04-2022 End: 05-04-[address] Jarred Lopez Work Phone: [facility] Start: 05-03-2022 End: 05-04-2022 Emergency department patient visit Dr. Jarred Lopez Work Phone: [facility] Start: 05-03-2022 End: 05-04-2022 Non-patient / Non-visit Dr. Jarred Lopez Work Phone: [facility] Start: 04-28-2022 End: 04-28-[address] Jarred Lopez Work Phone: [facility] Start: 04-28-2022 End: 04-28-[address] Jarred Lopez Work Phone: [facility] Start: 04-28-[address] Luis Carlos Lopez Work Phone: [facility] Start: 04-25-2022 Non-patient / Non-visit Dr. Adriana Lopez Work Phone: [facility] Start: 04-25-2022 Non-patient / Non-visit Dr. Adriana Lopez Work Phone: [facility] Start: 04-24-2022 Non-patient / Non-visit Dr. Adriana Lopez Work Phone: [facility] Start: 04-24-2022 End: 04-25-2022 Evaluation and management of inpatient Dr. Jarred Lopez Work Phone: [facility] Start: 04-17-2022 End: 04-17-[address] Jarred Lopez Work Phone: [facility] Start: 04-17-[address] Luis Carlos Lopez Work Phone: [facility] Start: 04-13-2022 End: 04-13-[address] Jarred Lopez Work Phone: [facility] Start: 04-13-[address] Luis Carlos Lopez Work Phone: [facility] Start: 04-06-2022 End: 04-06-[address] Jarred Lopez Work Phone: [facility] Start: 04-03-2022 [facility] Shital Patel MA [facility] Comment on above: Population Health Na vigation Outreach (HCC) Start: 03-30-2022 Non-patient / Non-visit Dr. Adriana Lopez Work Phone: [facility] Start: 03-29-2022 Non-patient / Non-visit Dr. Adriana Lopez Work Phone: [facility] Start: 03-28-2022 Non-patient / Non-visit Dr. Adriana Lopez Work Phone: [facility] Start: 03-27-2022 Non-patient / Non-visit Dr. Adriana Lopez Work Phone: [facility] Start: 03-26-2022 Non-patient / Non-visit Dr. Adriana Lopez Work Phone: [facility] Start: 03-25-2022 Non-patient / Non-visit Dr. Adriana Lopez Work Phone: [facility] Start: 03-24-2022 Non-patient / Non-visit Dr. Adriana Lopez Work Phone: [facility] Start: 03-23-2022 Non-patient / Non-visit Dr. Adriana Lopez Work Phone: [facility] Start: 03-22-2022 Non-patient / Non-visit Dr. Adriana Lopez Work Phone: [facility] Start: 03-21-2022 Non-patient / Non-visit Dr. Adriana Lopez Work Phone: [facility] Start: 03-20-2022 Non-patient / Non-visit Dr. Adriana Lopez Work Phone: [facility] Start: 03-20-2022 End: 03-30-2022 Evaluation and management of inpatient Dr. Jarred Lopez Work Phone: [facility] Start: 02-24-2022 End: 02-24-2022 Emergency department patient visit [facility] Start: 01-13-2022 End: 01-13-2022 Emergency department patient visit [facility] Start: 09-27-2021 End: 09-27-2021 Emergency department patient visit [facility] Start: 09-29-2018 Patient encounter procedure Tj L Calixto Facility:[facility] Start: 08-03-2018 Patient encounter procedure Tj L Calixto Facility:[facility] Start: 06-01-2018 Patient encounter procedure Tj L Calixto Facility:[facility] Start: 03-08-2018 Ambulatory SIXTO CALIXTO Facility :[facility] Start: 02-22-2018 Patient encounter procedure Tj L Calixto Facility:[facility] Start: 11-30-2017 Patient encounter procedure Tj L Calixto Facility:[facility] Start: 12-10-2008 End: 06-03-2015 Patient encounter status Annabel Tanja [facility] Work Phone: Procedures Date Procedure Procedure Detail Performing Clinician Start: 06-01-2025 Blood count smear rscp w/mnl difrntl wbc count Dr. Lizet Linares MD Work Phone: Start: 06-01-[address] Lizet Linares MD Work Phone: Start: 06-01-2025 Mean corpuscular hem oglobin concentration determination Dr. Lizet Linares MD Work Phone: Start: 06-01-2025 Nucleated red blood cell count procedure Dr. Lizet Linares MD Work Phone: Start: 06-01-2025 Platelet mean volume determination Dr. Lizet Linares MD Work Phone: Start: 05-30-2025 Gram stain microscopy D onesimo Linares MD Work Phone: Start: 05-30-2025 Microbial culture, routine Dr. Lizet Linares MD Work Phone: Start: 05-30-2025 Serum inorganic phos phate measurement Dr. Lizet Linares MD Work Phone: Start: 05-28-[address] Benito Linares MD Work Phone: Start: 05-28-[address] Junie Linares MD Work Phone: Start: 05-28-[address] Lizet Linares MD Work Phone: Start: 05-26-2025 Blood count smear mc rscp w/mnl difrntl wbc count Dr. Lizet Linares MD Work Phone: Start: 05-26-[address] Lizet Linares MD Work Phone: Start: 05-26-2025 Mean corpuscular hem oglobin concentration determination Dr. Lizet Linares MD Work Phone: Start: 05-26-2025 Nucleated red blood cell count procedure Dr. Lizet Linares MD Work Phone: Start: 05-26-2025 Platelet mean volume determination Dr. Lizet Linares MD Work Phone: Start: 05-07-2025 Blood count smear mc rscp w/mnl difrntl wbc count Dr. Lizet Linares MD Work Phone: Start: 05-07-2025 Mean corpuscular hem oglobin concentration determination Dr. Lizet Linares MD Work Phone: Start: 05-07-2025 Nucleated red blood cell count procedure Dr. Lizet Linares MD Work Phone: Start: 05-07-2025 Platelet mean volume determination Dr. Lizet Linares MD Work Phone: Start: 04-12-2025 Gram stain microscopy D onesimo Linares MD Work Phone: Start: 04-12-2025 Microbial [...] Author Start: 06-09-2031 Urine microalbumin profile [facility] Start: 07-06-2025 ambulatory Ambulatory Facility:[facility] Start: 06-25-2025 Influenza vaccination Influenza Vaccine (Season Ended) [facility] Start: 06-01-2025 Patient discharge [facility] Start: 05-30-2025 Referral to general surgeon [facility] Start: 05-29-2025 [facility] Start: 05-29-2025 Consultation [facility] Start: 05-29-2025 Complete blood count [facility] Start: 05-28-2025 Following clinical pathway protocol [facility] Start: 05-28-2025 Bacteria identified in Blood by Culture Blood Culture [facility] Start: 05-28-2025 Blood culture [facility] Start: 05-28-2025 Following clinical pathway protocol [facility] Start: 05-28-2025 Ambulation without limitation [facility] Start: 05-28-2025 Assessment of risk of venous thromboembolism [facility] Start: 05-28-2025 Care regimes management [facility] Start: 05-28-2025 Incentive spirometry [facility] Start: 05-28-2025 Insertion of catheter into peripheral vein [facility] Start: 05-28-2025 Notification of physician [facility] Start: 05-28-2025 Oxygen therapy [facility] Start: 05-28-2025 Providing care according to standard [facility] Start: 05-28-2025 Referral to service [facility] Start: 05-28-2025 End: 05-28-2025 [facility] Start: 05-28-2025 Verification routine [facility] Start: 05-28-2025 Admission procedure [facility] Start: 05-28-2025 [facility] Start: 05-28-2025 Patient referral to dietitian [facility] Start: 05-26-2025 Emergency dept visit high severity&threat funcj [facility] Start: 05-26-2025 Iv infusion therapy/prophylaxis /dx 1st to 1 hr [facility] Start: 05-26-2025 Therapeutic injection iv push each new drug [facility] Start: 05-26-2025 [facility] Start: 05-26-2025 Following clinical pathway protocol [facility] Start: 01-22-2025 [facility] Start: 01-22-2025 [facility] Start: 10-25-2024 Medicare Advantage Annual Wellness Visit Medicare Advantage Annual Wellness Visit [facility] Start: 10-24-2024 [facility] Start: 06-25-2024 Covid-19 Vaccine () Covid-19 Vaccine () [facility] Start: 06-25-2024 Influenza vaccination [facility] Start: 04-18-2024 End: 04-18-2024 Patient encounter procedure 04/18/2024 12:20 PM EDT Office Visit [facility] [address] [place] [address] 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 APRN.[employer] [address] [place] [address] Yearly Exam [facility] Comment on above: Yearly Exam Start: 04-07-2024 3 comp foot exam completed DIABETIC FOOT EXAM [facility] Start: 04-07-2024 ANNUAL PCP TEAM CHRONIC DISEASE VISIT ANNUAL PCP TEAM CHRONIC DISEASE VISIT [facility] Start: 04-07-2024 COVID-19 VACCINE (4 - Booster for Pfizer series) COVID-19 VACCINE (4 - Booster for Pfizer series) [facility] Comment on above: Postponed from 07/28/2022 (Declined at t his time) Start: 04-07-2024 COVID-19 VACCINE (4 - Pfizer series) COVID-19 VACCINE (4 - Pfizer series) [facility] Comment on above: Postponed from 07/28/2022 (Declined at t his time) Start: 04-07-2024 Diabetic foot examination Diabetic Foot Exam [facility] Start: 04-07-2024 SHINGRIX VACCINE (1 of 2) SHINGRIX VACCINE (1 of 2) [facility] Comment on above: Postponed from 2013 (Declined at t his time) Start: 03-30-2024 End: 03-30-2024 Patient encounter procedure 03/30/2024 12:40 PM EDT Office Visit [facility] [address] [place] [address] Dwayne Lopez MD [address] [place] [address] ER follow up; [facility] 03/24/2024 head injury-PCP has ER summary on desk [facility] Comment on above: ER follow up; [facility] 03/24/2024 head injury- PCP has ER summary on desk Start: 03-24-2024 ANNUAL PCP TEAM CHRONIC DISEASE VISIT ANNUAL PCP TEAM CHRONIC DISEASE VISIT [facility] Start: 02-25-2024 End: 02-25-2024 Blood chemistry [facility] Start: 02-25-2024 End: 02-25-2024 Thyroid stimulating hormone measurement [facility] Start: 02-25-2024 End: 02-25-2024 [facility] Start: 01-20-2024 End: 01-20-2024 [facility] Start: 01-20-2024 [facility] Start: 01-17-2024 Urine culture [facility] Start: 01-17-2024 [facility] Start: 01-05-2024 Patient discharge [facility] Start: 01-01-2024 End: 01-01-2024 Following clinical pathway protocol [facility] Start: 01-01-2024 Assessment of risk of venous thromboembolism [facility] Start: 01-01-2024 Care regimes management [facility] Start: 01-01-2024 Fall prevention [facility] Start: 01-01-2024 Inhalation therapy procedure [facility] Start: 01-01-2024 Insertion of catheter into peripheral vein [facility] Start: 01-01-2024 Introduction of urinary catheter [facility] Start: 01-01-2024 Measuring intake and output [facility] Start: 01-01-2024 Notification of physician [facility] Start: 01-01-2024 Oxygen therapy [facility] Start: 01-01-2024 Providing care according to standard [facility] Start: 01-01-2024 Provision of activity privileges [facility] Start: 01-01-2024 Referral to occupational therapist [facility] Start: 01-01-2024 Referral to service [facility] Start: 01-01-2024 [facility] Start: 01-01-2024 Verification routine [facility] Start: 01-01-2024 Admission procedure [facility] Start: 01-01-2024 Hospital admission, emergency, from emergency room, medical nature [facility] Start: 01-01-2024 Patient referral to dietitian [facility] Start: 11-24-2023 Patient discharge [facility] Start: 11-22-2023 [facility] Start: 11-22-2023 Blood chemistry [facility] Start: 11-21-2023 Blood chemistry [facility] Start: 11-21-2023 [facility] Start: 11-20-2023 Blood chemistry [facility] Start: 11-19-2023 End: 11-19-2023 [facility] Start: 11-19-2023 Following clinical pathway protocol [facility] Start: 11-19-2023 Ambulation without limitation [facility] Start: 11-19-2023 Assessment of risk of venous thromboembolism [facility] Start: 11-19-2023 Care regimes management [facility] Start: 11-19-2023 Incentive spirometry [facility] Start: 11-19-2023 Insertion of catheter into peripheral vein [facility] Start: 11-19-2023 Measuring intake and output [facility] Start: 11-19-2023 Notification of physician [facility] Start: 11-19-2023 Providing care according to standard [facility] Start: 11-19-2023 Provision of activity privileges [facility] Start: 11-19-2023 Referral to occupational therapist [facility] Start: 11-19-2023 Referral to service [facility] Start: 11-19-2023 Verification routine [facility] Start: 11-19-2023 Admission procedure [facility] Start: 11-19-2023 Enteric precautions [facility] Start: 11-19-2023 Measurement of occult blood in stool specimen using immunoassay [facility] Start: 11-19-2023 Patient referral to dietitian [facility] Start: 10-25-2023 Behavioral Health Screening Behavioral Health Screening [facility] Start: 10-25-2023 Depression Assessment Depression Assessment [facility] Start: 2023 Hepatitis B Vaccine (1 of 3 - Risk 3-dose series) Hepatitis B Vaccine (1 of 3 - Risk 3-dose series) [facility] Start: 2023 RSV Vaccine (1 - 1-dose 60+ series) RSV Vaccine (1 - 1-dose 60+ series) [facility] Start: 2023 RSV Vaccine (1 - Risk 60-74 years 1-dose series) RSV Vaccine (1 - Risk 60-74 years 1-dose series) [facility] Start: 06-25-2023 Covid-19 Vaccine ( season) Covid-19 Vaccine ( season) [facility] Start: 06-25-2023 Influenza vaccination [facility] Start: 04-07-2023 End: 06-07-2023 ALBUMIN/CREAT RATIO RND UR ALBUMIN/CREAT RATIO RND UR Lab Routine Diabetes mellitus type 2 with neurological manifestations (HCC) Expected: 04/07/2023, Expires: 06/07/2023 [facility] Work Phone: Comment on above: Expected: 04/07/2023, Expires: 3 Start: 04-07-2023 End: 06-07-2023 CBC W Auto Differential panel - Blood CBC + DIFF Lab Routine Diabetes mellitus type 2 with neurological manifestations (HCC) Expected: 04/07/2023, Expires: 06/07/2023 [facility] Work Phone: Comment on above: Expected: 04/07/2023, Expires: 3 Start: 04-07-2023 End: 06-07-2023 Comprehensive metabolic 2000 panel - Serum or Plasma COMP METABOLIC PANEL Lab Routine Diabetes mellitus type 2 with neurological manifestations (HCC) Expected: 04/07/2023, Expires: 06/07/2023 [facility] Work Phone: Comment on above: Expected: 04/07/2023, Expires: 3 Start: 04-07-2023 End: 06-07-2023 Hemoglobin A1c in Blood HGB A1C Lab Routine Diabetes mellitus type 2 with neurological manifestations (HCC) Expected: 04/07/2023, Expires: 06/07/2023 [facility] Work Phone: Comment on above: Expected: 04/07/2023, Expires: 3 Start: 04-07-2023 End: 06-07-2023 Hepatic function 2000 panel - Serum or Plasma HEPATIC FUNCTION PNL Lab Routine Onychomycosis Expected: 04/07/2023, Expires: 06/07/2023 [facility] Work Phone: Comment on above: Expected: 04/07/2023, Expires: 3 Start: 04-07-2023 End: 06-07-2023 LIPID PANEL, NONFASTING LIPID PANEL, NONFASTING Lab Routine Diabetes mellitus type 2 with neurological manifestations (HCC) Expected: 04/07/2023, Expires: 06/07/2023 [facility] Work Phone: Comment on above: Expected: 04/07/2023, Expires: 3 Start: 04-07-2023 End: 06-07-2023 Thyrotropin [Units/volume] in Serum or Plasma TSH BLD Lab Routine Acquired hypothyroidism Expected: 04/07/2023, Expires: 06/07/2023 [facility] Work Phone: Comment on above: Expected: 04/07/2023, Expires: 3 Start: 01-29-2023 [facility] Start: 11-05-2022 [facility] Start: 10-25-2022 DEPRESSION ASSESSMENT DEPRESSION ASSESSMENT [facility] Start: 10-09-2022 [facility] Work Phone: Start: 08-24-2022 [facility] Start: 07-28-2022 COVID-19 VACCINE (4 - Booster for Pfizer series) COVID-19 VACCINE (4 - Booster for Pfizer series) [facility] Start: 07-13-2022 [facility] Work Phone: Start: 06-25-2022 Influenza vaccination [facility] Start: 05-22-2022 Blood chemistry [facility] Work Phone: Start: 05-22-2022 Complete blood count [facility] Work Phone: Start: 05-22-2022 Partial thromboplastin time, activated [facility] Work Phone: Start: 05-22-2022 Prothrombin time [facility] Work Phone: Start: 05-21-2022 Notification of physician [facility] Work Phone: Start: 05-21-2022 Patient discharge [facility] Work Phone: Start: 05-21-2022 Provision of activity privileges [facility] Work Phone: Start: 05-21-2022 Scheduling [facility] Work Phone: Start: 05-21-2022 Taking patient vital signs [facility] Work Phone: Start: 05-21-2022 Vascular disease risk assessment [facility] Work Phone: Start: 05-21-2022 [facility] Work Phone: Start: 05-21-2022 Referral to occupational therapist [facility] Work Phone: Start: 05-21-2022 Referral to service [facility] Work Phone: Start: 05-21-2022 Catheterization of vein [facility] Work Phone: Start: 05-21-2022 Medication not administered [facility] Work Phone: Start: 05-21-2022 [facility] Work Phone: Start: 05-21-2022 Application of intermittent pneumatic compression device [facility] Work Phone: Start: 05-21-2022 Following clinical pathway protocol [facility] Work Phone: Start: 05-21-2022 Assessment of risk of venous thromboembolism [facility] Work Phone: Start: 05-21-2022 Care regimes management [facility] Work Phone: Start: 05-21-2022 Insertion of catheter into peripheral vein [facility] Work Phone: Start: 05-21-2022 Introduction of urinary catheter [facility] Work Phone: Start: 05-21-2022 Measuring intake and output [facility] Work Phone: Start: 05-21-2022 Oxygen therapy [facility] [facility] Start: 05-21-2022 Providing care according to standard [facility] Work Phone: Start: 05-21-2022 Provision of activity privileges [facility] Work Phone: Start: 05-21-2022 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 press 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 [facility] Work Phone: Start: 05-21-2022 Referral to service [facility] Work Phone: Start: 05-21-2022 [facility] Work Phone: Start: 05-21-2022 Verification routine [facility] Work Phone: Start: 05-21-2022 Admission procedure [facility] Work Phone: Start: 05-03-2022 [facility] Work Phone: Start: 04-25-2022 Patient discharge [facility] Work Phone: Start: 04-24-2022 Ambulation without limitation [facility] Work Phone: Start: 04-24-2022 Assessment of risk of venous thromboembolism [facility] Work Phone: Start: 04-24-2022 Care regimes management [facility] Work Phone: Start: 04-24-2022 Catheterization of vein [facility] Work Phone: Start: 04-24-2022 Insertion of catheter into peripheral vein [facility] Work Phone: Start: 04-24-2022 Measuring intake and output [facility] Work Phone: Start: 04-24-2022 Oxygen therapy [facility] Work Phone: Start: 04-24-2022 Providing care according to standard [facility] Work Phone: Start: 04-24-2022 Referral to service [facility] Work Phone: Start: 04-24-2022 [facility] Work Phone: Start: 04-24-2022 Following clinical pathway protocol [facility] Work Phone: Start: 04-24-2022 Admission procedure [facility] Work Phone: Start: 03-30-2022 Patient discharge [facility] Work Phone: Start: 03-30-2022 [facility] Work Phone: Start: 03-25-2022 Oxygen therapy [facility] Work Phone: Start: 03-20-2022 Assessment of risk of venous thromboembolism [facility] Work Phone: Start: 03-20-2022 Catheterization of vein [facility] Work Phone: Start: 03-20-2022 Insertion of catheter into peripheral vein [facility] Work Phone: Start: 03-20-2022 Measuring intake and output [facility] Work Phone: Start: 03-20-2022 Providing care according to standard [facility] Work Phone: Start: 03-20-2022 Provision of activity privileges [facility] Work Phone: Start: 03-20-2022 Referral to occupational therapist [facility] Work Phone: Start: 03-20-2022 Referral to service [facility] Work Phone: Start: 03-20-2022 [facility] Work Phone: Start: 03-20-2022 Following clinical pathway protocol [facility] Work Phone: Start: 03-20-2022 Admission procedure [facility] Work Phone: Start: 01-13-2022 Bacteria identified in Urine by Culture Urine Culture [facility] Work Phone: Start: 07-21-2021 COVID-19 VACCINE (3 - Booster for Pfizer series) COVID-19 VACCINE (3 - Booster for Pfizer series) [facility] Start: 04-15-2021 COVID-19 VACCINE (3 - Booster for Pfizer series) COVID-19 VACCINE (3 - Booster for Pfizer series) [facility] Start: 03-25-2021 Glaucoma screening Dilated Retinal Exam [facility] Start: 03-25-2021 Hepatitis C antibody, confirmatory test DILATED RETINAL EXAM [facility] Start: 01-24-2021 ANNUAL PCP TEAM CHRONIC DISEASE VISIT ANNUAL PCP TEAM CHRONIC DISEASE VISIT [facility] Start: 12-25-2020 Hepatitis B screening URINE ALBUMIN:CREATININE RATIO [facility] Start: 10-27-2020 COLORECTAL CANCER SCREENING COLORECTAL CANCER SCREENING [facility] Start: 10-27-2020 FECAL OCCULT BLOOD FECAL OCCULT BLOOD [facility] Start: 10-27-2020 Screening for malignant neoplasm of colon [facility] Start: 10-26-2020 Creatinine measurement Serum Creatinine [facility] Start: 10-26-2020 SERUM CREATININE SERUM CREATININE [facility] Start: 09-18-2020 Hepatitis B surface antibody level LDL CHOLESTEROL [facility] Start: 09-04-2020 Complete blood count Hemoglobin/Hematocrit [facility] Start: 02-22-2020 Hemoglobin A1c measurement HbA1C [facility] Start: 02-22-2020 Hemoglobin A1c/Hemoglobin.total in Blood HBA1C [facility] Start: 07-04-2019 PNEUMOCOCCAL (2 - PCV) PNEUMOCOCCAL (2 - PCV) [facility] Start: 06-21-2018 3 comp foot exam completed DIABETIC FOOT EXAM [facility] Start: 06-21-2018 Adult depression screening assessment DEPRESSION SCREENING [facility] Start: 01-22-2018 Mammography [facility] Start: 01-22-2018 Screening for malignant neoplasm of breast Mammogram Screening [facility] Start: 07-28-2017 End: 07-28-2017 Appointment [facility] Work Phone: Start: 2013 SHINGRIX VACCINE (1 of 2) SHINGRIX VACCINE (1 of 2) [facility] Start: 08-14-2010 End: 08-14-2010 Follow Up Appt 1 month Follow Up Appt 1 month [facility] Work Phone: Start: 08-14-2010 End: 08-14-2010 Iiv3 vaccine split virus 0.5 ml dosage im use Flu vaccine > age 3 yr (with preservative) [facility] Work Phone: Start: 03-10-2010 End: 08-11-2010 Blood count complete automated *CBC without Diff [facility] Work Phone: Start: 03-10-2010 End: 08-11-2010 Comprehensive metabolic panel *CMP Complete Metabolic Panel [facility] Work Phone: Start: 03-10-2010 End: 03-10-2010 Follow Up Appt 2 weeks Follow Up Appt 2 weeks [facility] Work Phone: Start: 03-10-2010 End: 11-19-2014 Gastroenterology Referral Gastroenterology Referral Hennarocky Welshtemi, [address], [address], [place], [address] [facility] Work Phone: Start: 03-10-2010 End: 08-11-2010 Hemoglobin A1c/Hemoglobin.total mass fraction (Bld) *HgA1C [facility] Work Phone: Start: 03-10-2010 End: 08-11-2010 Protein mass conc *Lipid Profile [facility] Work Phone: Start: 03-10-2010 End: 08-11-2010 Thyrotropin Qn *TSH [facility] Work Phone: Start: 03-10-2010 End: 08-11-2010 Urinls dip stick/tablet reagnt non-auto micrscpy *Urinalysis [facility] Work Phone: Start: 2008 COLOGUARD (FIT-DNA) COLOGUARD (FIT-DNA) [facility] Start: 2008 Colonoscopy COLONOSCOPY [facility] Start: [address] COLONOGRAPHY [facility] Start: 2008 Screening for malignant neoplasm of colon [facility] Start: 2008 SIGMOIDOSCOPY SIGMOIDOSCOPY [facility] Start: 1982 HEPATITIS B (1 of 3 - Risk 3-dose series) HEPATITIS B (1 of 3 - Risk 3-dose series) [facility] Start: 1981 Anxiety Screening Anxiety Screening [facility] Start: 1981 Depression Screening Depression Screening [facility] Alanine aminotransfe rase [Enzymatic activity/volume] in Serum or Plasma [facility] Work Phone: Alanine aminotransfe rase [Enzymatic activity/volume] in Serum or Plasma [facility] Alanine aminotransfe rase [Enzymatic activity/volume] in Serum or Plasma [facility] Albumin [Mass/volume ] in Serum or Plasma [facility] Work Phone: Albumin [Mass/volume ] in Serum or Plasma [facility] Albumin [Mass/volume ] in Serum or Plasma [facility] Alkaline phosphatase [Enzymatic activity/volume] in Serum or Plasma [facility] Work Phone: Alkaline phosphatase [Enzymatic activity/volume] in Serum or Plasma [facility] Alkaline phosphatase [Enzymatic activity/volume] in Serum or Plasma [facility] Anion gap in Serum o r Plasma [facility] Anion gap measurement [facility] Work Phone: Anion gap measurement [facility] Anion gap measurement [facility] Anion gap measurement [facility] Anion gap measurement [facility] Anion gap measurement [facility] Aspartate aminotransferase [Enzymatic activity/volume] in Serum or Plasma [facility] Work Phone: Aspartate aminotransferase [Enzymatic activity/volume] in Serum or Plasma [facility] Aspartate aminotransferase [Enzymatic activity/volume] in Serum or Plasma [facility] Bacteria identified in Urine by Culture Urine Culture [facility] Work Phone: Bilirubin measuremen t, urine [facility] Bilirubin, total measurement [facility] Work Phone: Bilirubin, total measurement [facility] Bilirubin, total measurement [facility] Bilirubin.direct [Mass/volume] in Serum or Plasma [facility] BUN/Creatinine ratio [facility] Work Phone: BUN/Creatinine ratio [facility] BUN/Creatinine ratio [facility] BUN/Creatinine ratio [facility] BUN/Creatinine ratio [facility] BUN/Creatinine ratio [facility] BUN/Creatinine ratio [facility] Calcium [Mass/volume ] in Serum or Plasma [facility] Work Phone: Calcium [Mass/volume ] in Serum or Plasma [facility] Calcium [Mass/volume ] in Serum or Plasma [facility] Calcium [Mass/volume ] in Serum or Plasma [facility] Calcium [Mass/volume ] in Serum or Plasma [facility] Calcium [Mass/volume ] in Serum or Plasma [facility] Calcium [Mass/volume ] in Serum or Plasma [facility] Carbon dioxide, tota l [Moles/volume] in Central venous blood [facility] Carbon dioxide, tota l [Moles/volume] in Serum or Plasma [facility] Work Phone: Carbon dioxide, tota l [Moles/volume] in Serum or Plasma [facility] Carbon dioxide, tota l [Moles/volume] in Serum or Plasma [facility] Carbon dioxide, tota l [Moles/volume] in Serum or Plasma [facility] Carbon dioxide, tota l [Moles/volume] in Serum or Plasma [facility] Carbon dioxide, tota l [Moles/volume] in Serum or Plasma [facility] Cardiac event recording [facility] Chloride [Moles/volu me] in Serum or Plasma [facility] Work Phone: Chloride [Moles/volu me] in Serum or Plasma [facility] Chloride [Moles/volu me] in Serum or Plasma [facility] Chloride [Moles/volu me] in Serum or Plasma [facility] Chloride [Moles/volu me] in Serum or Plasma [facility] Chloride [Moles/volu me] in Serum or Plasma [facility] Cholesterol [Mass/vo lume] in Serum or Plasma [facility] Work Phone: Cholesterol in HDL [Mass/volume] in Serum or Plasma [facility] Work Phone: Cholesterol in LDL [Mass/volume] in Serum or Plasma [facility] Work Phone: Clostridioides diffi cile DNA [Presence] in Unspecified specimen by ZHANE with probe detection [facility] Creatinine [Mass/vol ume] in Serum or Plasma [facility] Creatinine [Moles/vo lume] in Serum or Plasma [facility] Work Phone: Creatinine [Moles/vo lume] in Serum or Plasma [facility] Creatinine [Moles/vo lume] in Serum or Plasma [facility] Creatinine [Moles/vo lume] in Serum or Plasma [facility] Creatinine [Moles/vo lume] in Serum or Plasma [facility] Creatinine [Moles/vo lume] in Serum or Plasma [facility] End: 03-08-2026 DBT Breast - bilateral screening [facility] Radiology Routine Encounter for screening mammogram for breast cancer 1 Occurrences starting 02/06/2025 until 03/08/2026 [facility] Work Phone: Comment on above: 1 Occurrences starting 02/06/2025 until 03/08/2026 Erythrocyte mean corpuscular volume determination [facility] Erythrocyte mean corpuscular volume determination [facility] Erythrocyte mean corpuscular volume determination [facility] Erythrocyte mean corpuscular volume determination [facility] Erythrocyte mean corpuscular volume determination [facility] Gastrointestinal pathogens panel - Stool by ZHANE with probe detection [facility] Glucose [Mass/volume ] in Serum or Plasma [facility] Work Phone: Glucose [Mass/volume ] in Serum or Plasma [facility] Glucose [Mass/volume ] in Serum or Plasma [facility] Glucose [Mass/volume ] in Serum or Plasma [facility] Glucose [Mass/volume ] in Serum or Plasma [facility] Glucose [Mass/volume ] in Serum or Plasma [facility] Glucose [Mass/volume ] in Serum or Plasma [facility] Hematocrit [Volume Fraction] of Blood [facility] Work Phone: Hematocrit [Volume Fraction] of Blood [facility] Hematocrit [Volume Fraction] of Blood [facility] Hematocrit [Volume Fraction] of Blood [facility] Hematocrit [Volume Fraction] of Blood [facility] Hematocrit [Volume Fraction] of Blood [facility] Hemoglobin [Mass/vol ume] in Blood [facility] Work Phone: Hemoglobin [Mass/vol ume] in Blood [facility] Hemoglobin [Mass/vol ume] in Blood [facility] Hemoglobin [Mass/vol ume] in Blood [facility] Hemoglobin [Mass/vol ume] in Blood [facility] Hemoglobin [Mass/vol ume] in Blood [facility] Hemoglobin [Presence ] in Urine [facility] Hemoglobin A1c/Hemoglobin.total in Blood [facility] INR in Blood by Coagulation assay [facility] Work Phone: Lactoferrin [Presenc e] in Stool by Immunoassay [facility] Leukocytes [#/volume ] in Blood [facility] Work Phone: Leukocytes [#/volume ] in Blood [facility] Leukocytes [#/volume ] in Blood [facility] Leukocytes [#/volume ] in Blood [facility] Leukocytes [#/volume ] in Blood [facility] Leukocytes [#/volume ] in Blood [facility] Lipid 1996 panel - S sondra or Plasma [facility] Work Phone: Magnesium [Mass/volu me] in Serum or Plasma [facility] Mean corpuscular hemoglobin concentration determination [facility] Work Phone: Mean corpuscular hemoglobin concentration determination [facility] Mean corpuscular hemoglobin concentration determination [facility] Mean corpuscular hemoglobin concentration determination [facility] Mean corpuscular hemoglobin concentration determination [facility] Mean corpuscular hemoglobin concentration determination [facility] Mean corpuscular hemoglobin determination [facility] Work Phone: Mean corpuscular hemoglobin determination [facility] Mean corpuscular hemoglobin determination [facility] Mean corpuscular hemoglobin determination [facility] Mean corpuscular hemoglobin determination [facility] Mean corpuscular hemoglobin determination [facility] Measurement of keton es in urine using dipstick [facility] Measurement of renal function [facility] Work Phone: Measurement of renal function [facility] Measurement of renal function [facility] Measurement of renal function [facility] Measurement of renal function [facility] Measurement of renal function [facility] Measurement of renal function [facility] End: 04-07-2025 MG Breast Screening [facility] Radiology Routine Encounter for screening mammogram for breast cancer 1 Occurrences starting 03/08/2024 until 04/07/2025 [facility] Work Phone: Comment on above: 1 Occurrences starting 03/08/2024 until 04/07/2025 Microscopic urinalysis [facility] Neutrophil count [facility] Work Phone: Neutrophil count [facility] Neutrophil count [facility] Neutrophil count [facility] Neutrophil count [facility] Neutrophil percent differential count [facility] Work Phone: Neutrophil percent differential count [facility] Neutrophil percent differential count [facility] Neutrophil percent differential count [facility] Neutrophil percent differential count [facility] NM Heart Views W str ess and W radionuclide IV [facility] Ova and parasites identified in Unspecified specimen by Light microscopy [facility] Partial thromboplast in time, activated [facility] Work Phone: Patient Education [facility] Now [facility] Work Phone: Patient referral [facility] Work Phone: pH of Urine [facility] Platelets [#/volume] in Blood [facility] Work Phone: Platelets [#/volume] in Blood [facility] Platelets [#/volume] in Blood [facility] Platelets [#/volume] in Blood [facility] Platelets [#/volume] in Blood [facility] Platelets [#/volume] in Blood [facility] Polysomnography [facility] Polysomnography [facility] Potassium [Moles/vol ume] in Serum or Plasma [facility] Work Phone: Potassium [Moles/vol ume] in Serum or Plasma [facility] Potassium [Moles/vol ume] in Serum or Plasma [facility] Potassium [Moles/vol ume] in Serum or Plasma [facility] Potassium [Moles/vol ume] in Serum or Plasma [facility] Potassium [Moles/vol ume] in Serum or Plasma [facility] Potassium measurement [facility] Prothrombin time [facility] Work Phone: Red blood cell count [facility] Work Phone: Red blood cell count [facility] Red blood cell count [facility] Red blood cell count [facility] Red blood cell count [facility] Red blood cell count [facility] Red cell distributio n width determination [facility] Work Phone: Red cell distributio n width determination [facility] Red cell distributio n width determination [facility] Red cell distributio n width determination [facility] Red cell distributio n width determination [facility] Red cell distributio n width determination [facility] Serum chloride measurement [facility] Serum inorganic phos phate measurement [facility] Sodium [Moles/volume ] in Serum or Plasma [facility] Work Phone: Sodium [Moles/volume ] in Serum or Plasma [facility] Sodium [Moles/volume ] in Serum or Plasma [facility] Sodium [Moles/volume ] in Serum or Plasma [facility] Sodium [Moles/volume ] in Serum or Plasma [facility] Sodium [Moles/volume ] in Serum or Plasma [facility] Sodium measurement [facility] Specific gravity of Urine [facility] T4 free measurement [facility] Work Phone: Total protein measurement [facility] Work Phone: Total protein measurement [facility] Total protein measurement [facility] Triglycerides measurement [facility] Work Phone: Troponin I measurement [facility] Work Phone: Urea nitrogen [Mass/volume] in Serum or Plasma [facility] Work Phone: Urea nitrogen [Mass/volume] in Serum or Plasma [facility] Urea nitrogen [Mass/volume] in Serum or Plasma [facility] Urea nitrogen [Mass/volume] in Serum or Plasma [facility] Urea nitrogen [Mass/volume] in Serum or Plasma [facility] Urea nitrogen [Mass/volume] in Serum or Plasma [facility] Urea nitrogen [Mass/volume] in Serum or Plasma [facility] Urinalysis, blood, qualitative [facility] Urine dipstick for glucose [facility] Urine dipstick for leukocyte esterase [facility] Urine dipstick for nitrite [facility] Urine dipstick for protein [facility] Urine examination [facility] Urine microscopy: epithelial cells [facility] Urine Microscopy: wh ite cells [facility] Urobilinogen [Presen ce] in Urine [facility] US Carotid arteries [facility] Work Phone: US Heart [facility] Work Phone: VLDL cholesterol measurement [facility] Work Phone: [facility] Immunizations Immunization Date Immunization Notes Care Provider Kimani qureshi 11-22-2023 influenza, injectabl e, quadrivalent, preservative free Dr. Jarred Lopez Work Phone: [facility] 11-22-2023 influenza virus vaccine, unspecified formulation Irena Wlid [facility] 04-07-2023 pneumococcal (PCV20) vaccine, 20 valent (PREVNAR 20) Dwayne Lopez MD Work Phone: [facility] 04-07-2023 pneumococcal Conjuga te, unspecified formulation Dwayne Lopez MD Work Phone: [facility] Work Phone: 06-09-2021 tetanus toxoid, redu juan c diphtheria toxoid, and acellular pertussis vaccine, adsorbed [facility] 02-18-2021 Covid (Pfizer) [facility] 01-29-2021 Covid (Pfizer) [facility] 09-18-2019 influenza, injectabl e, quadrivalent, contains preservative Shital Patel [facility] 09-18-2019 influenza virus vaccine, unspecified formulation Irena REYES [facility] 08-17-2019 influenza, injectabl e, quadrivalent, preservative free Shital Patel [facility] 07-04-2018 influenza, injectabl e, quadrivalent, preservative free Shital Patel [facility] 07-04-2018 pneumococcal polysaccharide vaccine, 23 valent Shital Patel [facility] 09-07-2013 influenza, injectable,quadrivalent , preservative free, pediatric [facility] 09-07-2013 influenza, seasonal, injectable, preservative free Shitalbrenda Patel [facility] 11-23-2012 pneumococcal polysaccharide vaccine, 23 valent Shital Patel [facility] 11-23-2012 Pneumococcal Vaccine [facility] Work Phone: 11-23-2012 pneumococcal vaccine , unspecified formulation Dr. Ganesh Garcia Work Phone: [facility] 08-14-2010 influenza, seasonal, injectable Angelika De La Torre [facility] [facility] Work Phone: 03-10-2010 influenza, seasonal, injectable; Translations: [Follow Up Appt 2 weeks] Angelika De La Torre CYTOGENETICIST [facility] Work Phone: 09-11-2009 novel [id number], preservative-free, injectable Shital Jorge [facility] 10-10-2008 pneumococcal polysaccharide vaccine, 23 valent Shitalbrenda Patel [facility] 08-25-2008 influenza virus vaccine, unspecified formulation Shital Jorge [facility] Work Phone: 04-24-2006 tetanus and diphther ia toxoids, adsorbed, preservative free, for adult use (2 Lf of tetanus toxoid and 2 Lf of diphtheria toxoid) Shital Patel [facility] Work Phone: Payers Date Payer Category Payer Unknown [id number] 2024 Medicaid [id number] 2024 Private Health Insurance [id number] 2024 Self-pay [id number] 2022 Medicare (Managed Care) VINH DICKENS O [id number] 2022 Unknown VINH HANKS [employer] VINH AYON O [id number] 2022-Present [phone] [id number] [place] [id number] [facility] [id number]. [id number] 2022 Unknown [id number]. 1.13.159.2. 7.3.075031.315 2014 Medicaid [id number] Medicare [id number] Medicare [id number] Unknown [id number] 2.840.1.123658.3.579.2. 273 Unknown [id number] 2.0.1.607658.3.579.2. 273 Unknown [id number] 2.16.840.1.083814.3.579.2. 273 Unknown [id number] 2.16.840.1.062367.3.579.2. 273 Unknown [id number] 2.16.840.1.086523.3.579.2. 273 Unknown [id number] 2.16.840.1.996819.3.579.2. 462 Unknown [id number] 2.16840.1.030750.3.579.2. 462 Unknown [id number] 2.16840.1.279591.3.579.2. 462 Unknown [id number] 2.16840.1.764184.3.579.2. 462 Unknown [id number] 2.16840.1.548689.3.579.2. 462 Unknown [id number] 2.16840.1.236842.3.579.2. 462 Unknown [id number] 2.840.1.865094.3.579.2. 462 Unknown [id number] 2.16840.1.012826.3.579.2. 462 Unknown [id number] 2.16840.1.888510.3.579.2. 462 Unknown [id number] 2.16840.1.667123.3.579.2. 462 Unknown [id number] 2.16840.1.360345.3.579.2. 462 Unknown [id number] 2.16840.1.302441.3.579.2. 462 Unknown [id number] 2.16840.1.778861.3.579.2. 462 Unknown [id number] 2.16840.1.912683.3.579.2. 462 Unknown [id number] 2.16840.1.566732.3.579.2. 462 Unknown [id number] 2.16840.1.675013.3.579.2. 462 Unknown [id number] 2.16.840.1.546233.3.579.2. 462 Unknown [id number] 2.16.840.1.559769.3.579.2. 462 Unknown [id number] 2.16.840.1.550624.3.579.2. 462 Unknown [id number] 2.16.840.1.750250.3.579.2. 462 Unknown [id number] 2.16.840.1.269726.3.579.2. 462 Unknown [id number] 2.840.1.912972.3.579.2. 462 Unknown [id number] 2.840.1.987593.3.579.2. 462 Unknown [id number] 2.840.1.489466.3.579.2. 462 Unknown [id number] 2.840.1.740989.3.579.2. 462 Unknown [id number] 2.840.1.614665.3.579.2. 462 Unknown [id number] 2.840.1.639144.3.579.2. 462 Unknown [id number] 2.840.1.848641.3.579.2. 462 Unknown [id number] 2.840.1.361147.3.579.2. 462 Unknown [id number] 2.16840.1.695959.3.579.2. 462 Unknown [id number] 2.16840.1.079990.3.579.2. 462 Unknown [id number] 2.840.1.533235.3.579.2. 462 Unknown [id number] 2.16.840.1.412778.3.579.2. 462 Unknown [id number] 2.16840.1.824921.3.579.2. 462 Unknown [id number] 2.840.1.271044.3.579.2. 462 Unknown [id number] 2.16.840.1.319610.3.579.2. 462 Unknown [id number] 2.16.840.1.349808.3.579.2. 462 Unknown [id number] 2.16.840.1.501643.3.579.2. 462 Unknown [id number] 2.16.840.1.084517.3.579.2. 462 Unknown [id number] 2.16.840.1.957115.3.579.2. 462 Unknown [id number] 2..840.1.767314.3.579.2. 462 Unknown [id number] 2..840.1.482239.3.579.2. 462 Unknown [id number] 2.840.1.643034.3.579.2. 462 Unknown [id number] 2.840.1.657534.3.579.2. 462 Unknown [id number] 2.840.1.919159.3.579.2. 462 Unknown [id number] 2.840.1.676964.3.579.2. 462 Unknown [id number] 2.840.1.899218.3.579.2. 462 Unknown [id number] 2.840.1.406929.3.579.2. 462 Unknown [id number] 2.16.840.1.847665.3.579.2. 462 Unknown [id number] 2.16.840.1.092157.3.579.2. 462 Unknown [id number] 2.16.840.1.244919.3.579.2. 462 Unknown [id number] 2.16840.1.342978.3.579.2. 462 Unknown [id number] 2.840.1.746639.3.579.2. 462 Unknown [id number] 2.16.840.1.836154.3.579.2. 462 Unknown [id number] 2.16.840.1.527150.3.579.2. 462 Unknown [id number] 2.16.840.1.671069.3.579.2. 462 Unknown [id number] 2.16.840.1.455644.3.579.2. 462 Unknown [id number] 2.16.840.1.640217.3.579.2. 462 Unknown [id number] 2.16.840.1.644936.3.579.2. 462 Unknown [id number] 2.840.1.847458.3.579.2. 462 Unknown [id number] 2.840.1.062276.3.579.2. 462 Unknown [id number] 2.840.1.800605.3.579.2. 462 Unknown [id number] 2.840.1.590628.3.579.2. 462 Unknown [id number] 2..840.1.593005.3.579.2. 462 Unknown [id number] 2.840.1.213492.3.579.2. 462 Unknown [id number] 2.840.1.894008.3.579.2. 462 Unknown [id number] 2.840.1.228026.3.579.2. 462 Unknown [id number] 2.16.840.1.157776.3.579.2. 462 Unknown [id number] 2.16.840.1.783768.3.579.2. 462 Unknown [id number] 2.16.840.1.722035.3.579.2. 462 Unknown [id number] 2.16.840.1.549787.3.579.2. 462 Unknown [id number] 2.16840.1.381405.3.579.2. 462 Unknown [id number] 2.16.840.1.260656.3.579.2. 462 Unknown [id number] 2.16.840.1.154322.3.579.2. 462 Unknown [id number] 2.16.840.1.930880.3.579.2. 462 Unknown [id number] 2.16.840.1.512928.3.579.2. 462 Unknown [id number] 2.16.840.1.869054.3.579.2. 462 Unknown [id number] 2.16.840.1.518942.3.579.2. 462 Unknown [id number] 2.16.840.1.957204.3.579.2. 462 Unknown [id number] 2.16.840.1.457748.3.579.2. 462 Unknown [id number] 2.16.840.1.165554.3.579.2. 462 Unknown [id number] 2.16.840.1.761472.3.579.2. 462 Social History Date Type Detail Facility Start: 01-13-2022 End: 01-20-2024 Tobacco smoking status [facility] Unknown if ever smoked [facility] Start: 04-08-2019 Occasional [facility] Start: 12-12-2020 None [facility] Start: 02-28-2021 Homeless [facility] Start: 02-28-2021 Cigarettes [facility] Start: 1965 Sex Assigned At Female [facility] Start: 10-21-2020 End: 05-30-2025 Tobacco smoking status NHIS Ex-smoker [facility] Start: 06-25-1977 End: 10-07-2020 History of tobacco use Current smoker [facility] Start: 06-25-1977 End: 10-07-2020 History of tobacco use Cigarette Smoker [facility] Start: 10-21-2020 End: 11-19-2022 Cigarettes smoked current (pack per day) - Reported 0.5 [facility] Start: 10-21-2020 End: 03-24-2023 Tobacco use and exposure Smokeless tobacco non-user [facility] Start: 10-31-2021 End: 08-10-2023 Alcohol intake Current non-drinker of alcohol (finding) [facility] Start: 05-27-2015 History SDOH Alcohol Comment Seldom- twice yearly [facility] Start: 1965 Sex Assigned At Not on file [facility] Start: 11-19-2022 End: 04-23-2023 Tobacco use panel [facility] National Score (1-10 0), lower number is lower risk 70 [facility] Start: 01-22-2025 End: 01-26-2025 Sex Female (finding) [facility] Medical Equipment Procedure Code Equipment Code Equipment Origin al Text Equipment Identifier Dates TEST STRIPS TEST STRIPS [id number] Start: 08-14-2010 LANCET LANCET [id number] Start: 08-14-2010 INSULIN PEN NEEDLE [id number] Start: 08-14-2010 Comment on above: Test blood [...] Yes. Pt uses Freestyle Lite Insulinx Meter [id number] Start: 12-26-2019 use to test bloo d sugar THREE TIMES DAILY [id number] Start: 12-26-2019 Use one needle f or each dose. four/day. [id number] Start: 09-18-2019 Test blood sugar(s) 3 times daily. Dx: Type 2 DM - Uncontrolled E11.65 Insulin: Yes [id number] Start: 05-07-2016 Pen Needle,Diabetic, Disp Unit 29 gauge x 1/2" needle Start: 06-23-2021 End: 11-24-2023 Pen Needle,Diabetic, Disp Unit 29 gauge x 1/2" needle Start: 06-23-2021 End: 11-24-2023 Pen Needle,Diabetic, Disp Unit 29 gauge x 1/2" needle Start: 06-23-2021 End: 11-24-2023 Pen Needle,Diabetic, Disp Unit 29 gauge x 1/2" needle Start: 06-23-2021 End: 11-24-2023 Pen Needle,Diabetic, Disp Unit 29 gauge x 1/2" needle Start: 06-23-2021 End: 11-24-2023 Pen Needle,Diabetic, Disp Unit 29 gauge x 1/2" needle Start: 06-23-2021 End: 11-24-2023 Pen Needle,Diabetic, Disp Unit 29 gauge x 1/2" needle Start: 06-23-2021 End: 11-24-2023 Pen Needle,Diabetic, Disp Unit 29 gauge x 1/2" needle Start: 06-23-2021 End: 11-24-2023 Pen Needle,Diabetic, Disp Unit 29 gauge x 1/2" needle Start: 06-23-2021 End: 11-24-2023 Pen Needle,Diabetic, Disp Unit 29 gauge x 1/2" needle Start: 06-23-2021 End: 11-24-2023 Pen Needle,Diabetic, Disp Unit 29 gauge x 1/2" needle Start: 06-23-2021 End: 11-24-2023 Pen Needle,Diabetic, Disp Unit 29 gauge x 1/2" needle Start: 06-23-2021 End: 11-24-2023 Pen Needle,Diabetic, Disp Unit 29 gauge x 1/2" needle Start: 06-23-2021 End: 11-24-2023 Goals Date Patient Goal Desired Activity /State Personal health goal Functional Status Date Assessment Result Facility 06-01-2025 Functional status With Assist of 1 [facility] Work Phone: 05-31-2025 Functional status Ambulates;Beds giuseppe Commode;Back to bed [facility] Work Phone: 05-28-2025 Functional status Activity Abili ty With Assist of 2 [facility] Work Phone: 01-05-2024 Functional status Bedrest [facility] Work Phone: 01-03-2024 Functional status Bedside Commode [facility] Work Phone: 01-31-2024 Functional status Ambulates [facility] Work Phone: 05-21-2022 Functional status Ambulates;Beds giuseppe Commode [facility] Work Phone: 04-25-2022 Functional status Bedpan [facility] Work Phone: 04-25-2022 Functional status None [facility] Work Phone: 03-30-2022 Functional status Ambulates;Laurent r;Bedside Commode [facility] Work Phone: 03-20-2022 Functional status Activity Abili ty Unable to Assess [facility] Work Phone: 05-27-2015 Are you deaf, or do you have serious difficulty hearing No 05/27/2015 2:20 PM EDT Faith Charles RN No [facility] Work Phone: 05-27-2015 Are you blind, or do you have serious difficulty seeing, even when wearing glasses No 05/27/2015 2:20 PM EDFaith Aguillon RN No [facility] 05-27-2015 Do you have serious difficulty walking or climbing stairs No 05/27/2015 2:20 PM EDFaith Aguillon RN No [facility] 05-27-2015 Do you have difficul ty dressing or bathing No 05/27/2015 2:20 PM EDFaith Aguillon RN No [facility] 05-27-2015 Because of a physica l, mental, or emotional condition, do you have difficulty doing errands alone such as visiting a physician's office or shopping No 05/27/2015 2:20 PM EDFaith Aguillon RN No [facility] Mental Status Date Assessment Result Facility 06-01-2025 Cognitive function Voice/Name [facility] Work Phone: 05-28-2025 Cognitive function Voice/Name [facility] Work Phone: 05-26-2025 Cognitive function Awake;Alert;A ppropriate;Fol lows Commands [facility] Work Phone: 01-22-2025 Cognitive function Awake;Alert;A ppropriate;Fol lows Commands [facility] Work Phone: 01-20-2024 Cognitive function Awake;Alert;A ppropriate;Fol lows Commands [facility] Work Phone: 01-05-2024 Cognitive function Voice/Name [facility] Work Phone: 01-03-2024 Cognitive function Voice/Name [facility] Work Phone: 01-01-2024 Cognitive function Voice/Name [facility] Work Phone: 11-24-2023 Cognitive function Voice/Name [facility] Work Phone: 11-19-2023 Cognitive function Level Of Cons ciousness Awake;Alert;Appropriate;Fol lows Commands [facility] Work Phone: 06-06-2023 Cognitive function Level Of Cons ciousness Awake;Alert;Appropriate;Fol lows Commands [facility] Work Phone: 01-29-2023 Cognitive function Awake;Alert;A ppropriate;Fol lows Commands [facility] Work Phone: 11-05-2022 Cognitive function Voice/Name [facility] Work Phone: 08-24-2022 Cognitive function Voice/Name [facility] Work Phone: 05-21-2022 Cognitive function Voice/Name [facility] Work Phone: 05-20-2022 Cognitive function Level Of Cons ciousness Awake;Alert;Appropriate;Fol lows Commands [facility] Work Phone: 05-03-2022 Cognitive function Awake;Alert;A ppropriate;Fol lows Commands [facility] Work Phone: 04-25-2022 Cognitive function Voice/Name [facility] Work Phone: 03-30-2022 Cognitive function Comprehension Ability Demonstrates ability to follow instructions/comprehend [facility] Work Phone: 03-30-2022 Cognitive function Level Of Cons ciousness Awake;Alert [facility] Work Phone: 03-29-2022 Cognitive function Voice/Name [facility] Work Phone: 03-20-2022 Cognitive function Voice/Name [facility] Work Phone: 02-24-2022 Cognitive function Voice/Name [facility] Work Phone: 01-13-2022 Cognitive function Level Of Cons ciousness Awake;Alert;Appropriate;Fol lows Commands [facility] Work Phone: 05-27-2015 Because of a physica l, mental, or emotional condition, do you have serious difficulty concentrating, remembering, or making decisions No 05/27/2015 2:20 PM EDT Faith Charles RN No [facility] Clinical Notes 07-23-2015 to 06-01-2025 Note Date & Type Note Facility 06-01-2025 Discharge summary Note Date/Time June 01, 2025 12:20pm [facility] Medical Records Department [address] [place] [address] Discharge Summary 06/01/25 1217 MR#: [id number] Acct: [id number] Name: TERRANCE BRAR Rep #:[id number] : 1965 59 From: John Shaw MD PCP: Dr. Lziet Linares MD Status:A DM IN Location: MS3 [id number] Providers Date of Admission: 05/28/25 Date of Discharge: 06/01/25 Primary Care Physician: Dr. Lizet Linares MD Consultations 05/29/25 08:22 Consult: Infectious Disease Routine Consulting Provider: Juan Chiang Reason for Consult: Right upper lip cellulitis failed outpatient treatment EMERGENT Consult: No MD Notified: Yes Date Notified: 05/29/25 Time Notified: 08: Method of Notification: Text 05/30/25 14:24 Consult: General Surgery Routine Consulting Provider: Juan Whatley Reason for Consult: Right upper lip abscess requiring I&D EMERGENT Consult: No MD Notified: Yes Date Notified: 05/30/25 Time Notified: 14:26 Method of Notification: Text Reason For Visit: FACE CELLULITIS W/FAILED OUTPATIENT ABX Diagnosis Discharge Diagnosis (1) Infected lip laceration: Status: Acute Code(s): S01.511A - Laceration without foreign body of lip, initial encounter; L08.9 - Local infection of the skin and subcutaneous tissue, unspecified Plan Patient is a 59-year-old lady with history of diabetes mellitus type 2 who presented with swelling and redness and pain involving the right upper lip. 1. Right upper lip swelling with cellulitis and failed outpatient antibiotics ? Admit under inpatient status to [facility]. Presentation consistent with cellulitis secondary to lip wound due to insect bite. Poorly controlled diabetes likely contributing to development of infection. Failed outpatient p.o. clindamycin. Notably aspiration was attempted in the ED on 05/25 with no drainage noted. Patient was started on IV doxycycline and admitted to regular nursing floor. With patient having failed outpatient therapy and with multiple allergies consult was placed to ID ? 05/30/2025;Seen for complaints of leg pain. Patient was seen in consultation byDr. Chiang with ID adjustment made to patient antibiotic therapy (discontinuedoxycycline started patient on Unasyn and vancomycin). Dr. Chiang recommended for ENT consultation however with no ENT coverage plan is for patient to follow-up as outpatient ? 05/31/2025;Patient underwent incision and drainage upper lip absces on 05/31/[address] Whatley cultures sent, swelling involving the lip significantly decreased. ? 06/01/2025;Patient wound cultures so far positive for Staphylococcus aureus. Final identification and sensitivities pending 2. Diabetes mellitus type 2 with skin complication?right upper lip cellulitis ? Patient has history of poorly controlled diabetes mellitus type 2 with recent hemoglobin A1c of 10.5. Glucose on admission was 160. Did continue with home regimen in addition to Accu-Cheks ACHS with sliding scale coverage ? 05/30/2025; glucose control still not optimal subsequent adjustment made to patient insulin regimen 3. Chronic debility ? Patient is at an [facility] 4. Class II obesity with BMI of 39.3 ? Complicating care weight loss advised 5. Chronic kidney disease stage IIIb ? Kidney function at baseline 6. Hypothyroidism ? Patient is on levothyroxine home dose continued 7. GERD ? Patient on PPI 8. Mood disorder ? Patient is on citalopram and Seroquel did continue 9. History of previous VTE ? Patient is on systemic anticoagulation with apixaban 10. Hypertension ? Blood pressure controlled, home medications continued with dose adjustment as needed 11. Dyslipidemia ?Patient is on atorvastatin and fenofibrate did continue 12. DVT prophylaxis ? Already on Eliquis 13. Anemia ? Secondary to chronic disorder monitoring H&H and transfuse if patient becomes symptomatic or hemoglobin falls below 7 14. Physical deconditioning ? Requested for PT OT eval and social media specialist to assist with discharge planning Time spent in the patient's overall evaluation,decision-making process, review of diagnostic data, adjustment of management, discussion with other providers, nursing nursing and ancillary staff involved in patient's care documentation, 35 Minutes Medications at Discharge Home Medications rizatriptan 10 mg tablet 10 mg PO PRN Migraine Symptoms 12/27/17 atorvastatin 40 mg tablet 40 mg PO QHS #30 tabs 05/21/22 metoprolol succinate 25 mg tablet,extended release 24 hr 25 mg PO DAILY #30 tabs05/21/22 pantoprazole 40 mg tablet,delayed release 40 mg PO DAILY 06/12/22 ranolazine 500 mg tablet,extended release,12 hr 500 mg PO BID #60 tabs 06/12/22 acetaminophen 325 mg tablet 650 mg (2 x 325 mg) PO Q6H PRN PRN Pain 1-10 Or Fever >100.7 #0 tabs 11/24/23 melatonin 3 mg tablet 3 mg PO QHS PRN PRN Insomnia #0 tabs 11/24/23 sennosides 8.6 mg-docusate sodium 50 mg tablet (Stool Softener-Stimulant Laxative) 2 tab PO BID PRN PRN Constipation #0 tabs 01/05/24 loperamide 2 mg capsule (Anti-Diarrheal (loperamide)) 2 mg PO Q6H PRN loose stool 04/02/24 fluticasone propionate 50 mcg/actuation nasal spray,suspension (Aller-Scar) 2 spray intranasal DAILY 06/20/24 nitroglycerin 0.4 mg sublingual tablet 0.4 mg sublingual Q5M PRN chest pain 06/20/24 promethazine 25 mg tablet 25 mg PO Q6H PRN nausea and vomiting 06/20/24 apixaban 5 mg tablet (Eliquis) 5 mg PO BID 08/19/24 bisacodyl 10 mg rectal suppository 10 mg HI DAILY PRN constipation 08/19/24 dulaglutide 3 mg/0.5 mL subcutaneous pen injector (Trulicity) 3 mg subcut QWEEK 08/19/24 fenofibrate 160 mg tablet 160 mg PO DAILY 08/19/24 magnesium citrate (Citrate of Magnesia oral) 150 ml PO PRN PRN constipation 08/19/24 magnesium hydroxide 400 mg/5 mL oral suspension (Dulcolax (magnesium hydroxide))30 ml PO DAILY PRN constipation 08/19/24 ondansetron 4 mg disintegrating tablet 4 mg PO Q8H PRN PRN Nausea #10 tabs 10/24/24 carboxymethylcellulose sodium 1 % eye drops (Artificial Tears (carboxymethylcellulose)) 1 drp ophthalmic (eye) TID 01/30/25 citalopram 20 mg tablet 20 mg PO QDAY 01/30/25 quetiapine 25 mg tablet 25 mg PO QHS 01/30/25 levothyroxine 137 mcg tablet (Levoxyl) 137 mcg PO QDAY #90 tabs 04/26/25 doxycycline hyclate 100 mg capsule 100 mg PO BID #14 caps 06/01/25 insulin glargine-yfgn 100 unit/mL (3 mL) subcutaneous pen 30 unit (0.3 mL) subcut BID #0 mL 06/01/25 insulin lispro 100 unit/mL subcutaneous pen (Humalog KwikPen (U-100) Insulin) 8 unit (0.08 mL) subcut TIDAC #0 mL 06/01/25 insulin lispro 100 unit/mL subcutaneous pen (Humalog KwikPen (U-100) Insulin) See Protocol subcut ACHS #0 mL 06/01/25 oxycodone-acetaminophen 5 mg-325 mg tablet 1 tab PO Q6H PRN PRN Pain 3 days #12 TABLETS 06/01/25 Hospital Course Summary of Care Provided Minutes Spent on Discharge: 35 Weight / BMI Weight Weight: 91.2 kg Body Mass Index (BMI) 39.2 ABG / Lab / Microbiology Data 06/01/25 07:29 06/01/25 07:29 Laboratory: Laboratory Results - last 24 hr 05/31/25 16:34: POC Glucose 149 H 05/31/25 22:58: POC Glucose 176 H 06/01/25 07:29: WBC 7.3, RBC 3.91 L, Hgb 10.7 L, Hct 34.7 L, MCV 88.7, MCH 27.4,MCHC 30.8 L, RDW Std Deviation 48.1 H, RDW Coeff of Anisa 15.0 H, Plt Count 384, MPV 9.3, Immature Gran % (Auto) 1.400 H, Neut % (Auto) 53.5, Lymph % (Auto) 35.9, [place] % (Auto) 5.5, Eos % (Auto) 2.7, Baso % (Auto) 1.0, Absolute Neuts (auto) 3.9, Absolute Lymphs (auto) 2.63, Nucleated RBC % 0, Sodium 135, Potassium 4.1, Chloride 101, Carbon Dioxide 22.5, Anion Gap 11, BUN 21 H, Creatinine 1.16, Estim Creat Clear Calc 51.28, Est GFR (MDRD) Non-Af 54 L, BUN/Creatinine Ratio 17.9, Glucose 181 H, Calcium 9.1 06/01/25 08:13: POC Glucose 172 H 06/01/25 10:20: Vancomycin Trough 17.6 H 06/01/25 11:27: POC Glucose 204 H Microbiology: Microbiology 05/30/25 17:00 Insect Bite Gram Stain - Final 05/30/25 17:00 Insect Bite Wound Culture - Final Meth. resistant Staph. aureus 05/28/25 09:45 Blood Culture (Wb) - Anticubital Left Blood Culture - Preliminary No growth in 48 hours. 05/28/25 09:49 Blood Culture (Wb) - Arm Right Blood Culture - Preliminary No growth in 48 hours. D/C Instructions DC O2, CPAP, BIPAP Needs Home O2 Discharge instructions: No Meaningful Use Info Meaningful Use Meaningful Use Diagnoses (Choose all that apply): None applicable Discharge Plan Admission Admit Date/Time: 05/28/25 11:34 Attending Provider: John Shaw Primary Care Provider: Lizet Linares Consulting Providers: Chavez Alcala; Juan Chiang; Juan Whatley Discharge Orders/Prescriptions Prescriptions: New insulin lispro [Humalog KwikPen Insulin] 100 unit/mL Insulin Pen See Protocol subcut ACHS Qty: 0 0RF Protocol: 4. Sliding Scale Insulin High-Med Dosing Condition: 150-199 mg/dl = 2 units Condition: 200-259 mg/dl = 4 units Condition: 260-324 mg/dl = 6 units Condition: 325-374 mg/dl = 8 units Condition: 375-409 mg/dl = 10 units Condition: 410-449 mg/dl = 11 units Condition: Greater than 449 call physician Protocol Text: Suggested for: - Patients on Total Daily Insulin Dose of 56-80 units - Patient who are known to be insulin resistant or septic HIGH MEDIUM DOSING ALGORITHM insulin lispro [Humalog KwikPen Insulin] 100 unit/mL Insulin Pen 8 unit subcut TIDAC Qty: 0 0RF insulin glargine-yfgn 100 unit/mL (3 mL) Insulin Pen 30 unit subcut BID Qty: 0 0RF doxycycline hyclate 100 mg capsule 100 mg PO BID Qty: 14 0RF Continued pantoprazole 40 mg tablet,delayed release (DR/EC) 40 mg PO DAILY ranolazine 500 mg tablet extended release 12 hr 500 mg PO BID Qty: 60 11RF citalopram 20 mg tablet 20 mg PO QDAY Artificial Tears (cmc) 1 % drops 1 drp ophthalmic (eye) TID rizatriptan 10 tablet 10 mg PO PRN Patient Comments: metoprolol succinate 25 mg Tablet Extended Release 24 Hr 25 mg PO DAILY Qty: 30 2RF atorvastatin 40 mg tablet 40 mg PO QHS Qty: 30 2RF quetiapine 25 mg tablet 25 mg PO QHS acetaminophen 325 mg Tablet 650 mg PO Q6H PRN PRN (Reason: Pain 1-10 Or Fever >100.7) Qty: 0 0RF melatonin 3 mg Tablet 3 mg PO QHS PRN PRN (Reason: Insomnia) Qty: 0 0RF loperamide [Anti-Diarrheal (loperamide)] 2 mg capsule 2 mg PO Q6H PRN (Reason: loose stool) magnesium hydroxide [Dulcolax (magnesium hydroxide)] 400 mg/5 mL suspension 30 ml PO DAILY PRN (Reason: constipation) magnesium citrate [Citrate of Magnesia] Solution 150 ml PO PRN PRN (Reason: constipation) bisacodyl 10 mg suppository 10 mg HI DAILY PRN (Reason: constipation) Trulicity 3 mg/0.5 mL pen injector 3 mg subcut QWEEK fenofibrate 160 mg tablet 160 mg PO DAILY Eliquis 5 mg Tablet 5 mg PO BID ondansetron 4 mg tablet,disintegrating 4 mg PO Q8H PRN PRN (Reason: Nausea) Qty: 10 0RF sennosides-docusate sodium [Stool Softener-Stimulant Laxat] 8.6-50 mg Tablet 2 tab PO BID PRN PRN (Reason: Constipation) Qty: 0 0RF nitroglycerin 0.4 mg tablet, sublingual 0.4 mg sublingual Q5M PRN (Reason: chest pain) Rx Instructions: do not exceed 3 doses per episode fluticasone propionate [Aller-Scar] 50 mcg/actuation spray,suspension 2 spray intranasal DAILY Rx Instructions: administer into each nostril promethazine 25 mg tablet 25 mg PO Q6H PRN (Reason: nausea and vomiting) oxycodone-acetaminophen 5-325 mg tablet 1 tab PO Q6H PRN PRN (Reason: Pain) 3 Days Qty: 12 0RF levothyroxine [Levoxyl] 137 mcg tablet 137 mcg PO QDAY Qty: 90 1RF Discontinued insulin glargine-yfgn 100 unit/mL (3 mL) Insulin Pen 48 unit subcut BID clindamycin HCl 150 mg capsule 450 mg PO TID Qty: 90 0RF oxycodone-acetaminophen 5-325 mg tablet 1 tab PO .every4 hours PRN (Reason: pain) 30 Days Qty: 100 0RF Referrals / Follow Up: Lizet Linares MD [Primary Care Provider] - Within 2 Weeks Disposition Disposition (needs filled in before D/C Order can be placed): Nursing Home Facility Charges/Coding Visit Charges Inpatient E&M: 37782 Disch Hosp >30min 06/01/25 1220 <Electronically signed by John Shaw MD> Cosigner Signature (if applicable): CC: Dr. John Shaw MD; Dr. Lizet Linares MD~ Signed [facility] Work Phone: [phone]) [phone] Discharge summary [facility] Note Date/Time June 01, 2025 12: 16pm [facility] Medical Records Department [address] [place] [address] Transfer to [facility] Care MR#: [id number] Acct: [id number] Name: TERRANCE BRAR Rep #:[id number] : 1965 59 From: John Shaw MD PCP: Dr. Lizet Linares MD Status:A DM IN Certification of patient admission REQUIRED AT TIME OF ADMISSION. I CERTIFY THAT POST-HOSPITAL ECF SERVICES ARE REQUIRED TO BE GIVEN ON AN IN-PATIENT BASIS BECAUSE OF THE ABOVE NAMED PATIENT'S NEED FOR ALF CARE ON A CONTINUING BASIS FOR THE CONDITION(S) FOR WHICH HE/SHE WAS RECEIVING IN-PATIENT HOSPITAL SERVICES PRIOR TO HIS/HER TRANSFER TO THE [facility]. 06/01/25 1216<Electronically signed by John Shaw MD> Diet Diet Order/Speech Therapy: INPATIENT Hospital Diet / Speech Therapy Order(s) 05/28/25 12:36 Diet: Consistent Carb - Calorie Controlled Food consistency:: Regular Liquid Consistency:: Regular/Thin Dietary Modifications:: Cardiac / Heart Healthy How many daily calories?: 1600 calorie Routine Orders/Code Status Code Status: Full Code DC O2, CPAP, BIPAP needs Home O2 Discharge instructions: No Wound(s) upper lip: Wound Type: Bite Problem/Diagnosis (1) Infected lip laceration: Status: Acute Code(s): S01.511A - Laceration without foreign body of lip, initial encounter; L08.9 - Local infection of the skin and subcutaneous tissue, unspecified Plan Patient is a 59-year-old lady with history of diabetes mellitus type 2 who presented with swelling and redness and pain involving the right upper lip. 1. Right upper lip swelling with cellulitis and failed outpatient antibiotics ? Admit under inpatient status to [facility]. Presentation consistent with cellulitis secondary to lip wound due to insect bite. Poorly controlled diabetes likely contributing to development of infection. Failed outpatient p.o. clindamycin. Notably aspiration was attempted in the ED on 05/25 with no drainage noted. Patient was started on IV doxycycline and admitted to regular nursing floor. With patient having failed outpatient therapy and with multiple allergies consult was placed to ID ? 05/30/2025;Seen for complaints of leg pain. Patient was seen in consultation byDr. Chiang with ID adjustment made to patient antibiotic therapy (discontinuedoxycycline started patient on Unasyn and vancomycin). Dr. Chiang recommended for ENT consultation however with no ENT coverage plan is for patient to follow-up as outpatient ? 05/31/2025;Patient underwent incision and drainage upper lip absces on 05/31/[address] Whatley cultures sent, swelling involving the lip significantly decreased. ? 06/01/2025;Patient wound cultures so far positive for Staphylococcus aureus. Final identification and sensitivities pending 2. Diabetes mellitus type 2 with skin complication?right upper lip cellulitis ? Patient has history of poorly controlled diabetes mellitus type 2 with recent hemoglobin A1c of 10.5. Glucose on admission was 160. Did continue with home regimen in addition to Accu-Cheks ACHS with sliding scale coverage ? 05/30/2025; glucose control still not optimal subsequent adjustment made to patient insulin regimen 3. Chronic debility ? Patient is at an [facility] 4. Class II obesity with BMI of 39.3 ? Complicating care weight loss advised 5. Chronic kidney disease stage IIIb ? Kidney function at baseline 6. Hypothyroidism ? Patient is on levothyroxine home dose continued 7. GERD ? Patient on PPI 8. Mood disorder ? Patient is on citalopram and Seroquel did continue 9. History of previous VTE ? Patient is on systemic anticoagulation with apixaban 10. Hypertension ? Blood pressure controlled, home medications continued with dose adjustment as needed 11. Dyslipidemia ?Patient is on atorvastatin and fenofibrate did continue 12. DVT prophylaxis ? Already on Eliquis 13. Anemia ? Secondary to chronic disorder monitoring H&H and transfuse if patient becomes symptomatic or hemoglobin falls below 7 14. Physical deconditioning ? Requested for PT OT eval and social media specialist to assist with discharge planning Time spent in the patient's overall evaluation,decision-making process, review of diagnostic data, adjustment of management, discussion with other providers, nursing nursing and ancillary staff involved in patient's care documentation, 35 Minutes Allergies/Procedures Done in Hospital Allergies celecoxib (From Celebrex) Allergy (Verified 05/28/25 09:15) Itching ciprofloxacin (From Cipro) Allergy (Verified 05/28/25 09:15) Swelling ciprofloxacin HCl (From Cipro) Allergy (Verified 05/28/25 09:15) Swelling codeine Allergy (Verified 05/28/25 09:15) Hives ibuprofen Allergy (Verified 05/28/25 09:15) Hives naproxen Allergy (Verified 05/28/25 09:15) Hives Penicillins Allergy (Verified 05/28/25 09:15) Hives tramadol HCl (From Ultram) Allergy (Verified 05/28/25 09:15) Hives ketorolac (From Toradol) Adverse Reaction (Verified 05/28/25 09:15) Swelling Type of Care/Length of Stay Estimated LOS: More Than 30 Days Type of Care Needed: Intermediate Rehab Potential: Fair Prognosis: Fair Additional Orders/Day of Discharge Day of Discharge: 06/01/25 Dietary and Speech Recommendations Dietitian Recommendations/Changes: Will adjust diet to 1600 calorie/consistent carbohydrate; cardiac. Will offer ONS as needed if PO fails at meals. Discharge Plan Admission Admit Date/Time: 05/28/25 11:34 Attending Provider: John Shaw Primary Care Provider: Lizet Linares Consulting Providers: Chavez Alcala; Juan Chiang; Juan Whatley Discharge Orders/Prescriptions Prescriptions: New insulin lispro [Humalog KwikPen Insulin] 100 unit/mL Insulin Pen See Protocol subcut ACHS Qty: 0 0RF Protocol: 4. Sliding Scale Insulin High-Med Dosing Condition: 150-199 mg/dl = 2 units Condition: 200-259 mg/dl = 4 units Condition: 260-324 mg/dl = 6 units Condition: 325-374 mg/dl = 8 units Condition: 375-409 mg/dl = 10 units Condition: 410-449 mg/dl = 11 units Condition: Greater than 449 call physician Protocol Text: Suggested for: - Patients on Total Daily Insulin Dose of 56-80 units - Patient who are known to be insulin resistant or septic HIGH MEDIUM DOSING ALGORITHM insulin lispro [Humalog KwikPen Insulin] 100 unit/mL Insulin Pen 8 unit subcut TIDAC Qty: 0 0RF insulin glargine-yfgn 100 unit/mL (3 mL) Insulin Pen 30 unit subcut BID Qty: 0 0RF doxycycline hyclate 100 mg capsule 100 mg PO BID Qty: 14 0RF Continued pantoprazole 40 mg tablet,delayed release (DR/EC) 40 mg PO DAILY ranolazine 500 mg tablet extended release 12 hr 500 mg PO BID Qty: 60 11RF citalopram 20 mg tablet 20 mg PO QDAY Artificial Tears (cmc) 1 % drops 1 drp ophthalmic (eye) TID rizatriptan 10 tablet 10 mg PO PRN Patient Comments: metoprolol succinate 25 mg Tablet Extended Release 24 Hr 25 mg PO DAILY Qty: 30 2RF atorvastatin 40 mg tablet 40 mg PO QHS Qty: 30 2RF quetiapine 25 mg tablet 25 mg PO QHS acetaminophen 325 mg Tablet 650 mg PO Q6H PRN PRN (Reason: Pain 1-10 Or Fever >100.7) Qty: 0 0RF melatonin 3 mg Tablet 3 mg PO QHS PRN PRN (Reason: Insomnia) Qty: 0 0RF loperamide [Anti-Diarrheal (loperamide)] 2 mg capsule 2 mg PO Q6H PRN (Reason: loose stool) magnesium hydroxide [Dulcolax (magnesium hydroxide)] 400 mg/5 mL suspension 30 ml PO DAILY PRN (Reason: constipation) magnesium citrate [Citrate of Magnesia] Solution 150 ml PO PRN PRN (Reason: constipation) bisacodyl 10 mg suppository 10 mg HI DAILY PRN (Reason: constipation) Trulicity 3 mg/0.5 mL pen injector 3 mg subcut QWEEK fenofibrate 160 mg tablet 160 mg PO DAILY Eliquis 5 mg Tablet 5 mg PO BID ondansetron 4 mg tablet,disintegrating 4 mg PO Q8H PRN PRN (Reason: Nausea) Qty: 10 0RF sennosides-docusate sodium [Stool Softener-Stimulant Laxat] 8.6-50 mg Tablet 2 tab PO BID PRN PRN (Reason: Constipation) Qty: 0 0RF nitroglycerin 0.4 mg tablet, sublingual 0.4 mg sublingual Q5M PRN (Reason: chest pain) Rx Instructions: do not exceed 3 doses per episode fluticasone propionate [Aller-Scar] 50 mcg/actuation spray,suspension 2 spray intranasal DAILY Rx Instructions: administer into each nostril promethazine 25 mg tablet 25 mg PO Q6H PRN (Reason: nausea and vomiting) oxycodone-acetaminophen 5-325 mg tablet 1 tab PO Q6H PRN PRN (Reason: Pain) 3 Days Qty: 12 0RF levothyroxine [Levoxyl] 137 mcg tablet 137 mcg PO QDAY Qty: 90 1RF Discontinued insulin glargine-yfgn 100 unit/mL (3 mL) Insulin Pen 48 unit subcut BID clindamycin HCl 150 mg capsule 450 mg PO TID Qty: 90 0RF oxycodone-acetaminophen 5-325 mg tablet 1 tab PO .every4 hours PRN (Reason: pain) 30 Days Qty: 100 0RF Referrals / Follow Up: Lizet Linares MD [Primary Care Provider] - Within 2 Weeks Disposition Disposition (needs filled in before D/C Order can be placed): Nursing Home Facility 06/01/25 1216 <Electronically signed by John Shaw MD> Cosigner Signature (if applicable): CC: Dr. Chavez Alcala DO; Dr. Lizet Linares MD; Dr. Juan Chiang MD; Dr. Juan Whatley MD ~ [facility] Work Phone: [phone] 107-763808-08-2025 Hospital Discharge instructionsAdditional Instructions [facility]: [facility]: 1(542) 164-362808-08-2025 Progress note Author Juan [facility] Note Date/Time June 01, 2025 10: 19am [facility] Medical Records Department [address] [place] [address] Progress Note - Infect Disease 06/01/25 1017 MR#: [id number] Acct: [id number] Name: TERRANCE BRAR Rep #:[id number] : 1965 59 From: Juan hatch MD PCP: Dr. Lizet Linares MD Status:A DM IN Location: MS3 HS790-4 Physical Exam Narrative Feeling better, some nausea. Lip less sore overall. Const alert and no apparent distress General Appearance: cooperative Resp normal air movement and clear to auscultation bilaterally Cardio regular rate and regular rhythm GI soft to palpation, non-tender and non-distended Skin Skin Narrative: Upper lip less red and swollen ID ID: Route of nutrition/ use of supplements: [] Nutritional Intake: [] IV Site: [] Mcdaniel Catheter: [] Assessment & Plan Assessment/Plan (1) Infected lip laceration: PLAN: Reports swelling with PCN, but no issue with augmentin in past. Has h/o MRSA. Wound cx now with MRSA. Will cont vanc, stop unasyn. Now s/p I&D by Dr. Whatley 05/30/25. Plan on home with one week po doxy 100mg bid. Will follow 06/01/25 1019 <Electronically signed by Juan Chiang MD> Cosigner Signature (if applicable): CC: ~ Signed [facility] Work Phone: 1(711) 974-195208-08-2025 Progress note Author John Shaw [facility] Note Date/Time June 01, 2025 8:3 8am [facility] Medical Records Department [address] [place] [address] Progress Note - Hospitalist 06/01/25714 MR#: [id number] Acct: [id number] Name: TERRANCE BRAR Rep #:[id number] : 1965 59 From: John Shaw MD PCP: Dr. Lizet Linares MD Status:A DM IN [facility] Reason for Visit Chief Complaint: Worsening upper lip wound with surrounding cellulitis Subjective Subjective Patient wound cultures so far positive for Staphylococcus aureus. Final identification and sensitivities pending Objective Data Objective Data Vital Signs: Vital Signs Temp Pulse Resp BP Pulse Ox O2 Del Method 98.5 F 64 16 133/76 H 97 Room Air 06/01/25 02:14 06/01/25 02:14 06/01/25 02:14 06/01/25 02:14 06/01/25 02:14 06/01/25 02:23 Oxygen Delivery Method Room Air Weight: 91.2 kg Body Mass Index (BMI) 39.2 Intake & Output: Intake and Output for Last 24 Hours 05/30/25 05/31/25 06/01/25 23:59 23:59 23:59 Intake Total 1236.75 / 1236.75 855.75 / 855.75 265 / 265 Output Total 350 / 350 Balance 1236.75 / 886.75 505.75 / 505.75 265 / 265 Lab / Micro Data 06/01/25 07:29 05/31/25 06:43 Labs: Laboratory Results - last 24 hr 05/31/25 06:43: WBC 7.3, RBC 3.81 L, Hgb 10.4 L, Hct 33.5 L, MCV 87.9, MCH 27.3,MCHC 31.0 L, RDW Std Deviation 48.0 H, RDW Coeff of Anisa 14.9 H, Plt Count 388, MPV 9.3, Immature Gran % (Auto) 1.400 H, Neut % (Auto) 52.9, Lymph % (Auto) 34.8, [place] % (Auto) 7.6, Eos % (Auto) 2.5, Baso % (Auto) 0.8, Absolute Neuts (auto) 3.9, Absolute Lymphs (auto) 2.53, Nucleated RBC % 0, Sodium 137, Potassium 4.0, Chloride 102, Carbon Dioxide 21.9, Anion Gap 13, BUN 19, Creatinine 1.22 H, Estim Creat Clear Calc 48.76 L, Est GFR (MDRD) Non-Af 50 L, BUN/Creatinine Ratio 15.5, Glucose 204 H, Calcium 8.8 05/31/25 08:09: POC Glucose 202 H 05/31/25 11:20: POC Glucose 154 H 05/31/25 16:34: POC Glucose 149 H 05/31/25 22:58: POC Glucose 176 H Micro: Microbiology 05/30/25 17:00 Insect Bite Gram Stain - Final 05/30/25 17:00 Insect Bite Wound Culture - Preliminary Staphylococcus aureus 05/28/25 09:45 Blood Culture (Wb) - Anticubital Left Blood Culture - Preliminary No growth in 48 hours. 05/28/25 09:49 Blood Culture (Wb) - Arm Right Blood Culture - Preliminary No growth in 48 hours. Physical Exam Narrative GENERAL: cooperative HEENT: Swelling involving the right upper lip significantly decreased EYES; Anicteric, Normal Conjunctiva NECK; supple, normal thyroid, RESPIRATORY: Diminished to auscultation CARDIOVASCULAR: Regular S1 S2, GI: soft, normoactive bowel sounds, : No Renal angle tenderness; EXTREMITIES: No edema, no clubbing, MUSCULOSKELETAL: no muscle wasting NEURO: Awake; no lateralizing signs. SKIN: No Rash PSYCH; Flat affect Assessment & Plan Assessment/Plan (1) Infected lip laceration: PLAN: Plan Patient is a 59-year-old lady with history of diabetes mellitus type 2 who presented with swelling and redness and pain involving the right upper lip. 1. Right upper lip swelling with cellulitis and failed outpatient antibiotics ? Admit under inpatient status to [facility]. Presentation consistent with cellulitis secondary to lip wound due to insect bite. Poorly controlled diabetes likely contributing to development of infection. Failed outpatient p.o. clindamycin. Notably aspiration was attempted in the ED on 05/25 with no drainage noted. Patient was started on IV doxycycline and admitted to regular nursing floor. With patient having failed outpatient therapy and with multiple allergies consult was placed to ID ? 05/30/2025;Seen for complaints of leg pain. Patient was seen in consultation byDr. Chiang with ID adjustment made to patient antibiotic therapy (discontinuedoxycycline started patient on Unasyn and vancomycin). Dr. Chiang recommended for ENT consultation however with no ENT coverage plan is for patient to follow-up as outpatient ? 05/31/2025;Patient underwent incision and drainage upper lip absces on 05/31/[address] Whatley cultures sent, swelling involving the lip significantly decreased. ? 06/01/2025;Patient wound cultures so far positive for Staphylococcus aureus. Final identification and sensitivities pending 2. Diabetes mellitus type 2 with skin complication?right upper lip cellulitis ? Patient has history of poorly controlled diabetes mellitus type 2 with recent hemoglobin A1c of 10.5. Glucose on admission was 160. Did continue with home regimen in addition to Accu-Cheks ACHS with sliding scale coverage ? 05/30/2025; glucose control still not optimal subsequent adjustment made to patient insulin regimen 3. Chronic debility ? Patient is at an [facility] 4. Class II obesity with BMI of 39.3 ? Complicating care weight loss advised 5. Chronic kidney disease stage IIIb ? Kidney function at baseline 6. Hypothyroidism ? Patient is on levothyroxine home dose continued 7. GERD ? Patient on PPI 8. Mood disorder ? Patient is on citalopram and Seroquel did continue 9. History of previous VTE ? Patient is on systemic anticoagulation with apixaban 10. Hypertension ? Blood pressure controlled, home medications continued with dose adjustment as needed 11. Dyslipidemia ?Patient is on atorvastatin and fenofibrate did continue 12. DVT prophylaxis ? Already on Eliquis 13. Anemia ? Secondary to chronic disorder monitoring H&H and transfuse if patient becomes symptomatic or hemoglobin falls below 7 14. Physical deconditioning ? Requested for PT OT eval and social media specialist to assist with discharge planning Time spent in the patient's overall evaluation,decision-making process, review of diagnostic data, adjustment of management, discussion with other providers, nursing nursing and ancillary staff involved in patient's care documentation, 35 Minutes Charges/Coding Visit Charges Inpatient E&M: 93443 Subs Hosp L2 06/01/25 0838 <Electronically signed by John Shaw MD> Cosigner Signature (if applicable): CC: ~ Signed [facility] Work Phone: [phone] 562-674208-08-2025 Progress note Author Juan Whatley [facility] Note Date/Time June 01, 2025 8:2 4am [facility] Medical Records Department [address] [place] [address] Progress Note - Surgery 06/01/25 0800 MR#: [id number] Acct: [id number] Name: TERRANCE BRAR Rep #:[id number] : 1965 59 From: Juan Whatley MD PCP: Dr. Lizet Linares MD Status:A DM IN Location: [place] [address] Subjective Subjective Doing well. Reports improved pain. Objective Data Objective Data Vital Signs: Vital Signs Temp Pulse Resp BP Pulse Ox O2 Del Method 98.5 F 64 16 133/76 H 97 Room Air 06/01/25 02:14 06/01/25 02:14 06/01/25 02:14 06/01/25 02:14 06/01/25 02:14 06/01/25 02:23 Oxygen Delivery Method Room Air Weight: 201 lb 0.985 oz Body Mass Index (BMI) 39.2 Intake & Output: Intake and Output for Last 24 Hours 05/30/25 05/31/25 06/01/25 23:59 23:59 23:59 Intake Total 1236.75 / 1236.75 855.75 / 855.75 265 / 265 Output Total 350 / 350 Balance 1236.75 / 886.75 505.75 / 505.75 265 / 265 Lab / Micro Data 06/01/25 07:29 05/31/25 06:43 Labs: Laboratory Results - last 24 hr 05/31/25 08:09: POC Glucose 202 H 08/07/25 11:20: POC Glucose 154 H 05/31/25 16:34: POC Glucose 149 H 05/31/25 22:58: POC Glucose 176 H Micro: Microbiology 05/30/25 17:00 Insect Bite Gram Stain - Final 05/30/25 17:00 Insect Bite Wound Culture - Preliminary Staphylococcus aureus 05/28/25 09:45 Blood Culture (Wb) - Anticubital Left Blood Culture - Preliminary No growth in 48 hours. 05/28/25 09:49 Blood Culture (Wb) - Arm Right Blood Culture - Preliminary No growth in 48 hours. Physical Exam Narrative No purulence. Swelling decreased. Infection improving. Able to move lips completely and purse the lips Assessment & Plan Assessment/Plan (1) Abscess of lip: (2) Infected lip laceration: PLAN: Plan Vast improvement Continue IV antibiotic Staph aureus thus far OK for DC from PSU standpoint once cultures finalize and ID gives final recommendations Plan for f/u next week in clinic Charges/Coding Procedures Integumentary 111xxx-113xx: 76610 Global Visit 06/01/25 0824 <Electronically signed by Juan Whatley MD> Cosigner Signature (if applicable): CC: ~ Signed [facility] Work Phone: 1(871) 237-107108-07-2025 Progress note Author Juan Chiang [facility] Note Date/Time May 31, 2025 10: 58am [facility] Medical Records Department [address] [place] [address] Progress Note - Infect Disease 05/31/25 1057 MR#: [id number] Acct: [id number] Name: ETRRANCE BRAR Rep #:[id number] : 1965 59 From: Juan hatch MD PCP: Dr. Lizet Linares MD Status:A DM IN Location: MS3 EL050-9 Physical Exam Narrative Some nausea, but overall feeling better s/p I&D yesterday. No fever. Const alert and no apparent distress Resp normal air movement and clear to auscultation bilaterally Cardio regular rate and regular rhythm GI soft to palpation, non-tender and non-distended Skin Skin Narrative: lip less swollen ID ID: Route of nutrition/ use of supplements: [] Nutritional Intake: [] IV Site: [] Mcdaniel Catheter: [] Assessment & Plan Assessment/Plan (1) Infected lip laceration: PLAN: Reports swelling with PCN, but no issue with augmentin in past. Has h/o MRSA. Will cont vanc/unasyn. Now s/p I&D by Dr. Whatley 05/30/25. Will follow 05/31/25 1058 <Electronically signed by Juan Chiang MD> Cosigner Signature (if applicable): CC: ~ Signed [facility] Work Phone: 1(606) 780-371408-07-2025 Progress note Author John Shaw [facility] Note Date/Time May 31, 2025 9:1 4am [facility] Medical Records Department [address] [place] [address] Progress Note - Hospitalist 05/31/25 0654 MR#: [id number] Acct: [id number] Name: TERRANCE BRAR Rep #:[id number] : 1965 59 From: John Shaw MD PCP: Dr. Lizet Linares MD Status:A DM IN Location: [place] AL172-2 Reason for Visit Chief Complaint: Worsening upper lip wound with surrounding cellulitis Subjective Subjective Patient underwent incision and drainage upper lip absces on 05/31/[address] Whatley cultures sent. Swelling involving the left significantly decreased. Objective Data Objective Data Vital Signs: Vital Signs Temp Pulse Resp BP Pulse Ox O2 Del Method 98.1 F 81 16 138/71 H 97 Room Air 05/31/25 02:04 05/31/25 02:04 05/31/25 02:04 05/31/25 02:04 05/31/25 02:04 05/31/25 02:10 Oxygen Delivery Method Room Air Weight: 91.2 kg Body Mass Index (BMI) 39.2 Intake & Output: Intake and Output for Last 24 Hours 05/29/25 05/30/25 05/31/25 23:59 23:59 23:59 Intake Total 2515.75 / 2515.75 1236.75 / 1236.75 100 / 100 Output Total 350 / 350 Balance 2515.75 / 2515.75 1236.75 / 886.75 -250 / -250 Lab / Micro Data 05/31/25 06:43 05/31/25 06:43 Labs: Laboratory Results - last 24 hr 05/30/25 06:53: WBC 7.3, RBC 3.88 L, Hgb 10.7 L, Hct 34.1 L, MCV 87.9, MCH 27.6,MCHC 31.4 L, RDW Std Deviation 47.3 H, RDW Coeff of Anisa 14.7 H, Plt Count 387, MPV 9.2, Immature Gran % (Auto) 1.200 H, Neut % (Auto) 55.0, Lymph % (Auto) 32.4, [place] % (Auto) 8.1, Eos % (Auto) 2.5, Baso % (Auto) 0.8, Absolute Neuts (auto) 4.0, Absolute Lymphs (auto) 2.35, Nucleated RBC % 0, Sodium 137, Potassium 4.1, Chloride 101, Carbon Dioxide 22.5, Anion Gap 13, BUN 18, Creatinine 1.13, Estim Creat Clear Calc 52.64, Est GFR (MDRD) Non-Af 55 L, BUN/Creatinine Ratio 15.6, Glucose 165 H, Calcium 9.0, Phosphorus 3.6, Magnesium2.2 05/30/25 07:33: POC Glucose 152 H 05/30/25 10:10: Vancomycin Trough 14.7 05/30/25 11:45: POC Glucose 183 H 05/30/25 17:01: POC Glucose 181 H 05/30/25 22:21: POC Glucose 175 H Micro: Microbiology 05/28/25 09:45 Blood Culture (Wb) - Anticubital Left Blood Culture - Preliminary No growth in 48 hours. 05/28/25 09:49 Blood Culture (Wb) - Arm Right Blood Culture - Preliminary No growth in 48 hours. Physical Exam Narrative GENERAL: cooperative HEENT: Significant swelling involving the right upper lip with area of erythema EYES; Anicteric, Normal Conjunctiva NECK; supple, normal thyroid, RESPIRATORY: Diminished to auscultation CARDIOVASCULAR: Regular S1 S2, GI: soft, normoactive bowel sounds, : No Renal angle tenderness; EXTREMITIES: No edema, no clubbing, MUSCULOSKELETAL: no muscle wasting NEURO: Awake; no lateralizing signs. SKIN: No Rash PSYCH; Flat affect Assessment & Plan Assessment/Plan (1) Infected lip laceration: PLAN: Plan Patient is a 59-year-old lady with history of diabetes mellitus type 2 who presented with swelling and redness and pain involving the right upper lip. 1. Right upper lip swelling with cellulitis and failed outpatient antibiotics ? Admit under inpatient status to [facility]. Presentation consistent with cellulitis secondary to lip wound due to insect bite. Poorly controlled diabetes likely contributing to development of infection. Failed outpatient p.o. clindamycin. Notably aspiration was attempted in the ED on 05/25 with no drainage noted. Patient was started on IV doxycycline and admitted to regular nursing floor. With patient having failed outpatient therapy and with multiple allergies consult was placed to ID ? 05/30/2025;Seen for complaints of leg pain. Patient was seen in consultation byDr. Chiang with ID adjustment made to patient antibiotic therapy (discontinuedoxycycline started patient on Unasyn and vancomycin). Dr. Chiang recommended for ENT consultation however with no ENT coverage plan is for patient to follow-up as outpatient ? 05/31/2025;Patient underwent incision and drainage upper lip absces on 05/31/[address] Whatley cultures sent, swelling involving the lip significantly decreased 2. Diabetes mellitus type 2 with skin complication?right upper lip cellulitis ? Patient has history of poorly controlled diabetes mellitus type 2 with recent hemoglobin A1c of 10.5. Glucose on admission was 160. Did continue with home regimen in addition to Accu-Cheks ACHS with sliding scale coverage ? 05/30/2025; glucose control still not optimal subsequent adjustment made to patient insulin regimen 3. Chronic debility ? Patient is at an [facility] 4. Class II obesity with BMI of 39.3 ? Complicating care weight loss advised 5. Chronic kidney disease stage IIIb ? Kidney function at baseline 6. Hypothyroidism ? Patient is on levothyroxine home dose continued 7. GERD ? Patient on PPI 8. Mood disorder ? Patient is on citalopram and Seroquel did continue 9. History of previous VTE ? Patient is on systemic anticoagulation with apixaban 10. Hypertension ? Blood pressure controlled, home medications continued with dose adjustment as needed 11. Dyslipidemia ?Patient is on atorvastatin and fenofibrate did continue 12. DVT prophylaxis ? Already on Eliquis 13. Anemia ? Secondary to chronic disorder monitoring H&H and transfuse if patient becomes symptomatic or hemoglobin falls below 7 14. Physical deconditioning ? Requested for PT OT eval and social media specialist to assist with discharge planning Time spent in the patient's overall evaluation,decision-making process, review of diagnostic data, adjustment of management, discussion with other providers, nursing nursing and ancillary staff involved in patient's care documentation, 38 Minutes Charges/Coding Visit Charges Inpatient E&M: 87089 Subs Hosp L2 05/31/25 0914 <Electronically signed by John Shaw MD> Cosigner Signature (if applicable): CC: ~ Signed [facility] Work Phone: 1(709) 914-671508-07-2025 Progress note Author Juan Whatley [facility] Note Date/Time May 31, 2025 9:0 3am [facility] Medical Records Department [address] [place] [id number] Progress Note - Surgery 05/31/2536 MR#: [id number] Acct: [id number] Name: TERRANCE BRAR Rep #:[id number] : 1965 59 From: Juan Whatley MD PCP: Dr. Lizet Linares MD Status:A DM IN Location: MS3 [id number] Subjective Subjective Pain improved today. No drainage from the lip overnight. Stayed with head of bed elevated Objective Data Objective Data Vital Signs: Vital Signs Temp Pulse Resp BP Pulse Ox O2 Del Method 97.6 F L 64 18 116/41 L 95 Room Air 05/31/25 08:14 05/31/25 08:14 05/31/25 08:14 05/31/25 08:14 05/31/25 08:14 05/31/25 08:16 Oxygen Delivery Method Room Air Weight: 201 lb 0.985 oz Body Mass Index (BMI) 39.2 Intake & Output: Intake and Output for Last 24 Hours 05/29/25 05/30/25 05/31/25 23:59 23:59 23:59 Intake Total 2515.75 / 2515.75 1236.75 / 1236.75 200 / 200 Output Total 350 / 350 Balance 2515.75 / 2515.75 1236.75 / 886.75 -150 / -150 Lab / Micro Data Attestation: I reviewed the patient's lab results. (Sugars elevated/labile overnight. ) 05/31/25 06:43 05/31/25 06:43 Labs: Laboratory Results - last 24 hr 05/30/25 10:10: Vancomycin Trough 14.7 05/30/25 11:45: POC Glucose 183 H 05/30/25 17:01: POC Glucose 181 H 05/30/25 22:21: POC Glucose 175 H 05/31/25 06:43: WBC 7.3, RBC 3.81 L, Hgb 10.4 L, Hct 33.5 L, MCV 87.9, MCH 27.3,MCHC 31.0 L, RDW Std Deviation 48.0 H, RDW Coeff of Anisa 14.9 H, Plt Count 388, MPV 9.3, Immature Gran % (Auto) 1.400 H, Neut % (Auto) 52.9, Lymph % (Auto) 34.8, [place] % (Auto) 7.6, Eos % (Auto) 2.5, Baso % (Auto) 0.8, Absolute Neuts (auto) 3.9, Absolute Lymphs (auto) 2.53, Nucleated RBC % 0, Sodium 137, Potassium 4.0, Chloride 102, Carbon Dioxide 21.9, Anion Gap 13, BUN 19, Creatinine 1.22 H, Estim Creat Clear Calc 48.76 L, Est GFR (MDRD) Non-Af 50 L, BUN/Creatinine Ratio 15.5, Glucose 204 H, Calcium 8.8 Micro: Microbiology 05/28/25 09:45 Blood Culture (Wb) - Anticubital Left Blood Culture - Preliminary No growth in 48 hours. 05/28/25 09:49 Blood Culture (Wb) - Arm Right Blood Culture - Preliminary No growth in 48 hours. Physical Exam Narrative Lip packing removed (not replaced) No purulence. Swelling decreased. Infection improving. Assessment & Plan Assessment/Plan (1) Abscess of lip: PLAN: Continued HOB elevation Agree with IV antibiotics, continued to f/u cultures No need for packing changes at this point PSU will follow Should remain in house today and until cultures finalize OK to continued blood thinner as usual (no need to hold from PSU standpoint) Charges/Coding Procedures Integumentary 111xxx-113xx: 19736 Global Visit 05/31/25 0903 <Electronically signed by Juan Whatley MD> Cosigner Signature (if applicable): CC: ~ Signed [facility] Work Phone: [phone]) [phone] Consult note Author Juan Whatley [facility] Note Date/Time May 30, 2025 5:0 3pm [facility] Medical Records Department [address] [place] [address] Consultation - Surgical 05/30/25 1655 MR#: [id number] Acct: [id number] Name: TERRANCE BRAR Rep #:[id number] : 1965 59 From: Juan Whatley MD PCP: Dr. Lizet Linares MD Status:A DM IN Location: [place]3 SE804-3 Assessment & Plan Assessment/Plan (1) History of diabetes mellitus: (2) Infected lip laceration: (3) Abscess of lip: PLAN: Plan Bedside incision and drainage performed (please see separate operative note) Keep the packing in the wound until tomorrow and I will remove on rounds Continue broad-spectrum antibiotics Follow-up cultures I took Head of bed elevated 45 degrees or greater overnight for swelling Patient happy with the plan HPI Consult Data Date of Consult: 05/30/25 HPI Narrative HPI Narrative: TERRANCE BRAR is a 59 F who presents with an upper lip abscess. She reports that her upper lip pain has been developing slowly over the past 6 days after aninsect bite, she reports was a brown recluse. She is currently living in a nursing facility. Today on the floor she has stable vital signs and is afebrile. Her white blood cell count is 7.3. She is currently being treated with vancomycin and Unasyn. She reports sharp severe pain in the upper lip worsened by movements and improved with rest and elevation. She has type 2 diabetes with an A1c of 10.5, but otherwise has no immunosuppression She is on Eliquis with a history of VTE She also has hypothyroidism and stage III kidney disease FOR[facility]LY [facility], [facility] Medical History MRSA (methicillin resistant staph aureus) culture positive Cataract (lens) fragments in eye following cataract surgery Anxiety and depression Diabetes mellitus, type 2 Pulmonary emboli Parathyroid disease History of left heart catheterization (LHC) (~05/21/22) CKD (chronic kidney disease) stage 3, GFR 30-59 ml/min Essential hypertension Orthostatic hypotension Hypothyroidism Chronic back pain Obesity (BMI 35.0-39.9 without comorbidity) Normochromic normocytic anemia Hyperlipidemia Former smoker Opiate abuse, continuous Intervertebral disc disorder with radiculopathy of lumbar region Carpal tunnel syndrome Kidney stones Thyroid disease Migraines Stomach ulcer HTN (hypertension) Home Medications ?Medication ?Instructions ?Recorded ?Last Taken ?Type rizatriptan 10 mg tablet 10 mg PO PRN Migraine Sympto ms 12/27/17 04/03/24 History atorvastatin 40 mg tablet 40 mg PO QHS #30 tabs 06/19/24 Rx metoprolol succinate 25 mg 25 mg PO DAILY #30 tabs 06/18/24 Rx tablet,extended release 24 hr pantoprazole 40 mg tablet,delayed 40 mg PO DAILY 06/1206/19/24 History release ranolazine 500 mg tablet,extended 500 mg PO BID #60 ta bs 06/12/22 06/19/24 Rx release,12 hr acetaminophen 325 mg tablet 650 mg (2 x 325 mg) PO Q6H PRN PRN 11/24/23 06/16/24 Rx Pain 1-10 Or Fever >100.7 #0 tabs melatonin 3 mg tablet 3 mg PO QHS PRN PRN Insomnia #0 11/24/23 06/19/24 Rx tabs sennosides 8.6 mg-docusate sodium 2 tab PO BID PRN PRN Constipation 01/05/24 06/19/24 Rx 50 mg tablet (Stool #0 tabs Softener-Stimulant Laxative) loperamide 2 mg capsule 2 mg PO Q6H PRN loose stool 04/02/24 03/08/24 History (Anti-Diarrheal (loperamide)) fluticasone propionate 50 2 spray intranasal DAILY 06/19/24 History mcg/actuation nasal spray,suspension (Aller-Scar) nitroglycerin 0.4 mg sublingual 0.4 mg sublingual Q5M PRN chest 06/20/24 Unknown History tablet pain promethazine 25 mg tablet 25 mg PO Q6H PRN nausea and 06/20/24 Unknown History vomiting apixaban 5 mg tablet (Eliquis) 5 mg PO BID 08/19/24 Un known History bisacodyl 10 mg rectal suppository 10 mg HI DAILY PRN constipation 08/19/24 Unknown History dulaglutide 3 mg/0.5 mL 3 mg subcut QWEEK 08/19/24 U nknown History subcutaneous pen injector (Trulicity) fenofibrate 160 mg tablet 160 mg PO DAILY 08/19/24 Unk nown History insulin glargine-yfgn 100 unit/mL 48 unit subcut BID 1 Unknown History (3 mL) subcutaneous pen magnesium citrate (Citrate of 150 ml PO PRN PRN consti pation 08/19/24 Unknown History Magnesia oral) magnesium hydroxide 400 mg/5 mL 30 ml PO DAILY PRN con stipation 08/19/24 Unknown History oral suspension (Dulcolax (magnesium hydroxide)) ondansetron 4 mg disintegrating 4 mg PO Q8H PRN PRN Na usea #10 tabs 10/24/24 Unknown Rx tablet carboxymethylcellulose sodium 1 % 1 drp ophthalmic (ey e) TID 01/30/25 Unknown History eye drops (Artificial Tears (carboxymethylcellulose)) citalopram 20 mg tablet 20 mg PO QDAY 01/30/25 Unkno wn History quetiapine 25 mg tablet 25 mg PO QHS 01/30/25 Unknow n History levothyroxine 137 mcg tablet 137 mcg PO QDAY #90 tabs 04/26/25 Unknown Rx (Levoxyl) oxycodone-acetaminophen 5 mg-325 1 tab PO .every4 hour s PRN pain 30 05/23/25 Unknown Rx mg tablet days #100 tabs clindamycin HCl 150 mg capsule 450 mg (3 x 150 mg) PO TID #90 05/26/25 Unknown Rx CAPSULES oxycodone-acetaminophen 5 mg-325 1 tab PO Q6H PRN PRN Pain 3 days 05/26/25 Unknown Rx mg tablet #12 TABLETS Allergy/AdvReac Type Severity Reaction Status Date / Time celecoxib (From Celebrex) Allergy Itching Verified 05/28/25 09:15 ciprofloxacin (From Cipro) Allergy Swelling Verified 05/28/25 09:15 ciprofloxacin HCl (From Allergy Swelling Verified 05/28/25 09:15 Cipro) codeine Allergy Hives Verified 05/28/25 09:15 ibuprofen Allergy Hives Verified 05/28/25 09:15 naproxen Allergy Hives Verified 05/28/25 09:15 Penicillins Allergy Hives Verified 05/28/25 09:15 tramadol HCl (From Ultram) Allergy Hives Verified 05/28/25 09:15 ketorolac (From Toradol) AdvReac Swelling Verified 05/28/25 09:15 Family History Mother Cancer CVA (cerebral vascular accident) Hypertension Heart disease Myocardial infarction Diabetes Father Asthma Surgical History History of cholecystectomy S/P trigger finger release H/O: hysterectomy Hx of section Social History household members: other details: currently living in a NH for therapy for chronic back pain housing: long-term Smoking Status: Former smoker Tobacco: How many years used: 46 how long ago did patient quit smoking: Quit 09/2021, smoked 1 ppd since teen until quit. alcohol intake: never substance use type: other details: History of chronic opiate use. Denies abuse. Physical Exam Narrative No obvious dental abscess Upper lip with a fluctuant central right area, with surrounding induration. There is a pinhole over the wound that developing into a draining sinus. The area is exquisitely tender. Lab / Micro Data 05/30/25 06:53 05/30/25 06:53 Labs: Laboratory Results - last 24 hr 05/29/25 23:14: POC Glucose 213 H 05/30/25 06:53: WBC 7.3, RBC 3.88 L, Hgb 10.7 L, Hct 34.1 L, MCV 87.9, MCH 27.6,MCHC 31.4 L, RDW Std Deviation 47.3 H, RDW Coeff of Anisa 14.7 H, Plt Count 387, MPV 9.2, Immature Gran % (Auto) 1.200 H, Neut % (Auto) 55.0, Lymph % (Auto) 32.4, [place] % (Auto) 8.1, Eos % (Auto) 2.5, Baso % (Auto) 0.8, Absolute Neuts (auto) 4.0, Absolute Lymphs (auto) 2.35, Nucleated RBC % 0, Sodium 137, Potassium 4.1, Chloride 101, Carbon Dioxide 22.5, Anion Gap 13, BUN 18, Creatinine 1.13, Estim Creat Clear Calc 52.64, Est GFR (MDRD) Non-Af 55 L, BUN/Creatinine Ratio 15.6, Glucose 165 H, Calcium 9.0, Phosphorus 3.6, Magnesium2.2 05/30/25 07:33: POC Glucose 152 H 05/30/25 10:10: Vancomycin Trough 14.7 05/30/25 11:45: POC Glucose 183 H Micro: Microbiology 05/28/25 09:45 Blood Culture (Wb) - Anticubital Left Blood Culture - Preliminary No growth in 48 hours. 05/28/25 09:49 Blood Culture (Wb) - Arm Right Blood Culture - Preliminary No growth in 48 hours. Charges/Coding Multi Select Codes Visit Charges Office Visit/Consults: 05217 IP Consult L3 05/30/25 1705 <Electronically signed by Juan Whatley MD> Cosigner Signature (if applicable): CC: Dr. Lizet Linares MD~ Signed [facility] Work Phone: [phone]) 514-155408-06-2025 Procedure [facility] 05-30-2025 Progress note Author [facility] Note Date/Time May 30, 2025 1:3 3pm [facility] Medical Records Department [address] [place] [address] Progress Note - Infect Disease 05/30/25 1332 MR#: [id number] Acct: [id number] Name: TERRANCE BRAR Rep #:[id number] : 1965 59 From: Juan hatch MD PCP: Dr. Lizet Linares MD Status:A DM IN Location: MS3 [id number] Physical Exam Narrative Not feeling any better, lip still hurts, no drainage, some nausea. No fever. Const alert and no apparent distress Resp normal air movement and clear to auscultation bilaterally Cardio regular rate and regular rhythm GI soft to palpation, non-tender and non-distended Skin Skin Narrative: swelling, redness, pain on upper lip ID ID: Route of nutrition/ use of supplements: [] Nutritional Intake: [] IV Site: [] Mcdaniel Catheter: [] Assessment & Plan Assessment/Plan (1) Infected lip laceration: PLAN: Reports swelling with PCN, but no issue with augmentin in past. Has h/o MRSA. Will cont vanc/unasyn. ENT not available, recommend gen surg or plastic surgery eval. Will follow 05/30/25 1333 <Electronically signed by Juan Chiang MD> Cosigner Signature (if applicable): CC: ~ Signed [facility] Work Phone: [phone]) [phone] Consult note Author Clem Carnes [facility] Note Date/Time May 30, 2025 1:0 8pm [facility] Medical Records Department [address] [place] [address] Pharmacokinetic/Renal -Consult 05/29/25 1101 MR#: [id number] Acct: [id number] Name: TERRANCE BRAR Rep #:[id number] : 1965 59 From: Clem Carnes PCP: Dr. Lizet Linares MD Status:A DM IN Y Location: [place] [id number] Consult Antibiotic Management Pharmacy has been consulted to manage selected antibiotic: Vancomycin Type of Intervention Type of Consult: New start Suspected Infection Suspected Infection: Skin/Soft tissue Prior Doses of Antibiotics Prior Doses of Antibiotics Received/Current Regimen: Vancomycin 2000 mg IV x 1 given 05/28/25 @ 1144 Labs Labs: Sodium 136 mmol/L (133-145) 05/29/25 06:50 Potassium 4.0 mmol/L (3.3-5.1) 05/29/25 06:50 Chloride 102 mmol/L (98-108) 05/29/25 06:50 Carbon Dioxide 20.5 mmol/L (21.0-32.0) L 05/29/25 06:50 Anion Gap 14 (5-15) 05/29/25 06:50 BUN 21 mg/dL (4-19) H 05/29/25 06:50 Creatinine 1.24 mg/dL (0.70-1.20) H 05/29/25 06:50 Est GFR (MDRD) Non-Af 50 (>60) L 05/29/25 06:50 BUN/Creatinine Ratio 16.6 RATIO (10-20) 05/29/25 06:50 Glucose 131 mg/dL (70-99) H 05/29/25 06:50 Dosing Weight Weight used for dosin kg Estimated Creatinine Clearance Estimated Creatinine Clearance: ~ 48 Goal Trough Goal Trough: 15-20 mcg/mL Pharmacy Plan for Drug Dosing Pharmacy Plan for Drug Dosing: vancomycin 2000 mg IV x 1 given 05/28/25 @ 1144, will begin with 750 mg Q12H dosing now Pharmacy Service will continue to monitor and adjust dosing as required. Follow-Up Labs Follow-Up Labs: Trough: Vancomycin Date/Time Labs Ordered Labs to be done on [date and time ordered]: 05/30/25 @ 1030 05/29/25 1102 <Electronically signed by Clem hatch> Date _ Clem Carnes 05/30/25 1308 <Electronically signed by Juan nuno MD> Cosigner Signature (if applicable): Date Juan Chiang MD CC: ~ Signed [facility] Work Phone: [phone] Consult note Author Joao Marie [facility] Note Date/Time May 30, 2025 1:0 8pm [facility] Medical Records Department [address] [facility] [place] [address] Pharmacokinetic/Renal -Consult 05/30/25 1102 MR#: [id number] Acct: [id number] Name: TERRANCE BRAR Rep #:[id number] : 1965 59 From: Joao live PCP: Dr. Lizet Linares MD Status:A DM IN Location: [place]3 [id number] Consult Antibiotic Management Pharmacy has been consulted to manage selected antibiotic: Vancomycin Type of Intervention Type of Consult: Follow-up Suspected Infection Suspected Infection: Skin/Soft tissue Prior Doses of Antibiotics Prior Doses of Antibiotics Received/Current Regimen: current dose is 750mg IV q12h Labs Labs: Sodium 137 mmol/L (133-145) 05/30/25 06:53 Potassium 4.1 mmol/L (3.3-5.1) 05/30/25 06:53 Chloride 101 mmol/L (98-108) 05/30/25 06:53 Carbon Dioxide 22.5 mmol/L (21.0-32.0) 05/30/25 06:53 Anion Gap 13 (5-15) 05/30/25 06:53 BUN 18 mg/dL (4-19) 05/30/25 06:53 Creatinine 1.13 mg/dL (0.70-1.20) 05/30/25 06:53 Est GFR (MDRD) Non-Af 55 (>60) L 05/30/25 06:53 BUN/Creatinine Ratio 15.6 RATIO (10-20) 05/30/25 06:53 Glucose 165 mg/dL (70-99) H 05/30/25 06:53 Vancomycin Trough 14.7 ug/mL (5.0-15.0) 05/30/25 10:10 Dosing Weight Weight used for dosin.2 kg Estimated Creatinine Clearance Estimated Creatinine Clearance: 53 ml/min Goal Trough Goal Trough: 15-20 mcg/mL Pharmacy Plan for Drug Dosing Pharmacy Plan for Drug Dosing: The vanc trough drawn at 10:10 today (approx 11 hours after the previous dose) was 14.7 mcg/ml. This is just slightly below goal range so recommend to keep same dose for now. It's expected the level will rise into goal range since mostlikely not at steady state yet. Repeat a trough in 2 days per protocol. Pharmacy Service will continue to monitor and adjust dosing as required. Follow-Up Labs Follow-Up Labs: Trough: Vancomycin Date/Time Labs Ordered Labs to be done on [date and time ordered]: 06/01/25 10:30 05/30/25 1106 <Electronically signed by Joao Grande erg> Date _ Joao Marie 05/30/25 1308 <Electronically signed by Juan nuno MD> Cosigner Signature (if applicable): Date Juan Chiang MD CC: ~ Signed [facility] Work Phone: [phone]) [phone] Progress note Author John Shaw [facility] Note Date/Time May 30, 2025 7:4 2am [facility] Medical Records Department [address] [place] [address] Progress Note - Hospitalist 05/30/25 0735 MR#: [id number] Acct: [id number] Name: TERRANCE BRAR Rep #:[id number] : 1965 59 From: John Shaw MD PCP: Dr. Lizet Linares MD Status:A DM IN Location: [place] [address] Reason for Visit Chief Complaint: Worsening upper lip wound with surrounding cellulitis Subjective Subjective Seen for complaints of leg pain. Patient was seen in consultation by Dr. Chiang with ID adjustment made to patient antibiotic therapy. Dr. Chiang recommended for ENT consultation however with no ENT coverage plan is for patient to follow-up as outpatient Objective Data Objective Data Vital Signs: Vital Signs Temp Pulse Resp BP Pulse Ox O2 Del Method 97.9 F 74 15 163/54 H 98 Room Air 05/30/25 00:47 05/30/25 00:47 05/30/25 00:47 05/30/25 00:47 05/30/25 00:47 05/30/25 06:37 Oxygen Delivery Method Room Air Weight: 91.2 kg Body Mass Index (BMI) 39.2 Intake & Output: Intake and Output for Last 24 Hours 05/28/25 05/29/25 05/30/25 23:59 23:59 23:59 Intake Total 2640 / 2640 2515.75 / 2515.75 465 / 465 Balance 2640 / 2640 2515.75 / 2515.75 465 / 465 Lab / Micro Data 05/30/25 06:53 05/29/25 06:50 Labs: Laboratory Results - last 24 hr 05/29/25 06:50: Sodium 136, Potassium 4.0, Chloride 102, Carbon Dioxide 20.5 L, Anion Gap 14, BUN 21 H, Creatinine 1.24 H, Estim Creat Clear Calc 47.97 L, Est GFR (MDRD) Non-Af 50 L, BUN/Creatinine Ratio 16.6, Glucose 131 H, Calcium 8.6 05/29/25 11:50: POC Glucose 140 H 05/29/25 16:22: POC Glucose 172 H 05/29/25 23:14: POC Glucose 213 H 05/30/25 06:53: WBC 7.3, RBC 3.88 L, Hgb 10.7 L, Hct 34.1 L, MCV 87.9, MCH 27.6,MCHC 31.4 L, RDW Std Deviation 47.3 H, RDW Coeff of Anisa 14.7 H, Plt Count 387, MPV 9.2, Immature Gran % (Auto) 1.200 H, Neut % (Auto) 55.0, Lymph % (Auto) 32.4, [place] % (Auto) 8.1, Eos % (Auto) 2.5, Baso % (Auto) 0.8, Absolute Neuts (auto) 4.0, Absolute Lymphs (auto) 2.35, Nucleated RBC % 0 Physical Exam Narrative GENERAL: cooperative HEENT: Significant swelling involving the right upper lip with area of erythema EYES; Anicteric, Normal Conjunctiva NECK; supple, normal thyroid, RESPIRATORY: Diminished to auscultation CARDIOVASCULAR: Regular S1 S2, GI: soft, normoactive bowel sounds, : No Renal angle tenderness; EXTREMITIES: No edema, no clubbing, MUSCULOSKELETAL: no muscle wasting NEURO: Awake; no lateralizing signs. SKIN: No Rash PSYCH; Flat affect Assessment & Plan Assessment/Plan (1) Infected lip laceration: PLAN: Plan Patient is a 59-year-old lady with history of diabetes mellitus type 2 who presented with swelling and redness and pain involving the right upper lip. 1. Right upper lip swelling with cellulitis and failed outpatient antibiotics ? Admit under inpatient status to [facility]. Presentation consistent with cellulitis secondary to lip wound due to insect bite. Poorly controlled diabetes likely contributing to development of infection. Failed outpatient p.o. clindamycin. Notably aspiration was attempted in the ED on 05/25 with no drainage noted. Patient was started on IV doxycycline and admitted to regular nursing floor. With patient having failed outpatient therapy and with multiple allergies consult was placed to ID ? 05/30/2025;Seen for complaints of leg pain. Patient was seen in consultation byDr. Chiang with ID adjustment made to patient antibiotic therapy (discontinuedoxycycline started patient on Unasyn and vancomycin). Dr. Chiang recommended for ENT consultation however with no ENT coverage plan is for patient to follow-up as outpatient 2. Diabetes mellitus type 2 with skin complication?right upper lip cellulitis ? Patient has history of poorly controlled diabetes mellitus type 2 with recent hemoglobin A1c of 10.5. Glucose on admission was 160. Did continue with home regimen in addition to Accu-Cheks ACHS with sliding scale coverage ? 05/30/2025; glucose control still not optimal subsequent adjustment made to patient insulin regimen 3. Chronic debility ? Patient is at an F 4. Class II obesity with BMI of 39.3 ? Complicating care weight loss advised 5. Chronic kidney disease stage IIIb ? Kidney function at baseline 6. Hypothyroidism ? Patient is on levothyroxine home dose continued 7. GERD ? Patient on PPI 8. Mood disorder ? Patient is on citalopram and Seroquel did continue 9. History of previous VTE ? Patient is on systemic anticoagulation with apixaban 10. Hypertension ? Blood pressure controlled, home medications continued with dose adjustment as needed 11. Dyslipidemia ?Patient is on atorvastatin and fenofibrate did continue 12. DVT prophylaxis ? Already on Eliquis Time spent in the patient's overall evaluation,decision-making process, review of diagnostic data, adjustment of management, discussion with other providers, nursing nursing and ancillary staff involved in patient's care documentation, 35 Minutes Charges/Coding Visit Charges Inpatient E&M: 36691 Subs Hosp L2 05/30/25 0742 <Electronically signed by John Shaw MD> Kaylyn Signature (if applicable): CC: ~ Signed [facility] Work Phone: 1(563) 356-536808-05-2025 Consult note Author Juan Chiang [facility] Note Date/Time May 29, 2025 10: 40am [facility] Medical Records Department [address] [place] [address] Consultation - Infectious Dx 05/29/25 1037 MR#: [id number] Acct: [id number] Name: MAYKELTERRANCE Rep #:[id number] : 1965 59 From: Juan hatch MD PCP: Dr. Lizet Linares MD Status:A DM IN Location: MS3 LU443-6 Assessment & Plan Assessment/Plan (1) Infected lip laceration: PLAN: Reports swelling with PCN, but no issue with augmentin in past. Has h/o MRSA. Will change to vanc/unasyn and consult ENT for eval. Will follow, thank you, d/w nursing HPI Consult Data Date of Consult: 05/29/25 HPI Narrative Reason for Consultation: lip abscess HPI Narrative: TERRANCE BRAR, is a 59 F who presented 05/28 to ED with 3 days progressive upper lip swelling, pain, redness, purulence. Thinks a spider bit her, had sudden onset of symptoms. No fever or chills. No h/of HSV or cold sores. Came to ED, given clinda, sx improved slightly. Admitted after coming back to ED, now on ivdoxy, feeling about the same. Pain is moderate. Full ROS performed and neg except as noted above. FORMERLY [facility], [facility] Medical History MRSA (methicillin resistant staph aureus) culture positive Cataract (lens) fragments in eye following cataract surgery Anxiety and depression Diabetes mellitus, type 2 Pulmonary emboli Parathyroid disease History of left heart catheterization (LHC) (~05/21/22) CKD (chronic kidney disease) stage 3, GFR 30-59 ml/min Essential hypertension Orthostatic hypotension Hypothyroidism Chronic back pain Obesity (BMI 35.0-39.9 without comorbidity) Normochromic normocytic anemia Hyperlipidemia Former smoker Opiate abuse, continuous Intervertebral disc disorder with radiculopathy of lumbar region Carpal tunnel syndrome Kidney stones Thyroid disease Migraines Stomach ulcer HTN (hypertension) Home Medications ?Medication ?Instructions ?Recorded ?Last Taken ?Type rizatriptan 10 mg tablet 10 mg PO PRN Migraine Sympto ms 12/27/17 04/03/24 History atorvastatin 40 mg tablet 40 mg PO QHS #30 tabs 06/19/24 Rx metoprolol succinate 25 mg 25 mg PO DAILY #30 tabs 06/18/24 Rx tablet,extended release 24 hr pantoprazole 40 mg tablet,delayed 40 mg PO DAILY 06/1206/19/24 History release ranolazine 500 mg tablet,extended 500 mg PO BID #60 ta bs 06/12/22 06/19/24 Rx release,12 hr acetaminophen 325 mg tablet 650 mg (2 x 325 mg) PO Q6H PRN PRN 11/24/23 06/16/24 Rx Pain 1-10 Or Fever >100.7 #0 tabs melatonin 3 mg tablet 3 mg PO QHS PRN PRN Insomnia #0 11/24/23 06/19/24 Rx tabs sennosides 8.6 mg-docusate sodium 2 tab PO BID PRN PRN Constipation 01/05/24 06/19/24 Rx 50 mg tablet (Stool #0 tabs Softener-Stimulant Laxative) loperamide 2 mg capsule 2 mg PO Q6H PRN loose stool 04/02/24 03/08/24 History (Anti-Diarrheal (loperamide)) fluticasone propionate 50 2 spray intranasal DAILY 06/19/24 History mcg/actuation nasal spray,suspension (Aller-Scar) nitroglycerin 0.4 mg sublingual 0.4 mg sublingual Q5M PRN chest 06/20/24 Unknown History tablet pain promethazine 25 mg tablet 25 mg PO Q6H PRN nausea and 06/20/24 Unknown History vomiting apixaban 5 mg tablet (Eliquis) 5 mg PO BID 08/19/24 Un known History bisacodyl 10 mg rectal suppository 10 mg HI DAILY PRN constipation 08/19/24 Unknown History dulaglutide 3 mg/0.5 mL 3 mg subcut QWEEK 08/19/24 U nknown History subcutaneous pen injector (Trulicity) fenofibrate 160 mg tablet 160 mg PO DAILY 08/19/24 Unk nown History insulin glargine-yfgn 100 unit/mL 48 unit subcut BID 1 Unknown History (3 mL) subcutaneous pen magnesium citrate (Citrate of 150 ml PO PRN PRN consti pation 08/19/24 Unknown History Magnesia oral) magnesium hydroxide 400 mg/5 mL 30 ml PO DAILY PRN con stipation 08/19/24 Unknown History oral suspension (Dulcolax (magnesium hydroxide)) ondansetron 4 mg disintegrating 4 mg PO Q8H PRN PRN Na usea #10 tabs 10/24/24 Unknown Rx tablet carboxymethylcellulose sodium 1 % 1 drp ophthalmic (ey e) TID 01/30/25 Unknown History eye drops (Artificial Tears (carboxymethylcellulose)) citalopram 20 mg tablet 20 mg PO QDAY 01/30/25 Unkno wn History quetiapine 25 mg tablet 25 mg PO QHS 01/30/25 Unknow n History levothyroxine 137 mcg tablet 137 mcg PO QDAY #90 tabs 04/26/25 Unknown Rx (Levoxyl) oxycodone-acetaminophen 5 mg-325 1 tab PO .every4 hour s PRN pain 30 05/23/25 Unknown Rx mg tablet days #100 tabs clindamycin HCl 150 mg capsule 450 mg (3 x 150 mg) PO TID #90 05/26/25 Unknown Rx CAPSULES oxycodone-acetaminophen 5 mg-325 1 tab PO Q6H PRN PRN Pain 3 days 05/26/25 Unknown Rx mg tablet #12 TABLETS Allergy/AdvReac Type Severity Reaction Status Date / Time celecoxib (From Celebrex) Allergy Itching Verified 05/28/25 09:15 ciprofloxacin (From Cipro) Allergy Swelling Verified 05/28/25 09:15 ciprofloxacin HCl (From Allergy Swelling Verified 05/28/25 09:15 Cipro) codeine Allergy Hives Verified 05/28/25 09:15 ibuprofen Allergy Hives Verified 05/28/25 09:15 naproxen Allergy Hives Verified 05/28/25 09:15 Penicillins Allergy Hives Verified 05/28/25 09:15 tramadol HCl (From Ultram) Allergy Hives Verified 05/28/25 09:15 ketorolac (From Toradol) AdvReac Swelling Verified 05/28/25 09:15 Family History Mother Cancer CVA (cerebral vascular accident) Hypertension Heart disease Myocardial infarction Diabetes Father Asthma Surgical History History of cholecystectomy S/P trigger finger release H/O: hysterectomy Hx of section Social History household members: other details: currently living in a NH for therapy for chronic back pain housing: long-term Smoking Status: Former smoker Tobacco: How many years used: 46 how long ago did patient quit smoking: Quit 09/2021, smoked 1 ppd since teen until quit. alcohol intake: never substance use type: other details: History of chronic opiate use. Denies abuse. Physical Exam Const alert, oriented x3 and no apparent distress General Appearance: cooperative HEENT normocephalic and head/scalp atraumatic HEENT Narrative: Upper lip swelling, redness, tenderness Eyes PERRL and EOMs intact bilaterally Neck supple and No nodes Resp normal air movement and clear to auscultation bilaterally Cardio regular rate and regular rhythm GI soft to palpation, non-tender and non-distended Extremity General Extremity: Negative for edema Skin Skin Narrative: no other rash Neuro CN's II-XII intact bilaterally Lab / Micro Data Attestation: I reviewed the patient's lab results. 05/29/25 06:50 05/29/25 06:50 Labs: Laboratory Results - last 24 hr 05/28/25 09:45: Sodium 133, Potassium 4.1, Chloride 97 L, Carbon Dioxide 22.7, Anion Gap 13, BUN 25 H, Creatinine 1.43 H, Estim Creat Clear Calc 41.91 L, Est GFR (MDRD) Non-Af 42 L, BUN/Creatinine Ratio 17.7, Glucose 160 H, Lactic Acid 1.2, Calcium 8.9 05/28/25 13:06: POC Glucose 133 H 05/28/25 16:35: POC Glucose 186 H 05/28/25 22:24: POC Glucose 143 H 05/29/25 06:50: WBC 6.5, RBC 3.85 L, Hgb 10.6 L, Hct 33.4 L, MCV 86.8, MCH 27.5,MCHC 31.7 L, RDW Std Deviation 46.8 H, RDW Coeff of Anisa 14.7 H, Plt Count 371, MPV 9.3, Sodium 136, Potassium 4.0, Chloride 102, Carbon Dioxide 20.5 L, Anion Gap 14, BUN 21 H, Creatinine 1.24 H, Estim Creat Clear Calc 47.97 L, Est GFR (MDRD) Non-Af 50 L, BUN/Creatinine Ratio 16.6, Glucose 131 H, Calcium 8.6 05/29/25 1040 <Electronically signed by Juan Chiang MD> Cosigner Signature (if applicable): CC: Dr. Lizet Linares MD~ Signed [facility] Work Phone: 1(355) 384-211908-05-2025 Progress note Author John Shaw [facility] Note Date/Time May 29, 2025 8:2 0am [facility] Medical Records Department [address] [place] [address] Progress Note - Hospitalist 05/29/25805 MR#: [id number] Acct: [id number] Name: TERRANCE BRAR Rep #:[id number] : 1965 59 From: John Shaw MD PCP: Dr. Lizet Linares MD Status:A DM IN [place] [facility]-[place] Reason for Visit Chief Complaint: Worsening upper lip wound with surrounding cellulitis Subjective Subjective Patient is a 59-year-old lady with history of diabetes mellitus type 2 who presented with swelling and redness and pain involving the right upper lip. Objective Data Objective Data Vital Signs: Vital Signs Temp Pulse Resp BP Pulse Ox O2 Del Method 98.4 F 69 16 138/50 H 96 Room Air 05/29/25 07:45 05/29/25 07:45 05/29/25 07:45 05/29/25 07:45 05/29/25 07:45 05/29/25 07:46 Oxygen Delivery Method Room Air Weight: 91.2 kg Body Mass Index (BMI) 39.2 Intake & Output: Intake and Output for Last 24 Hours 05/27/25 05/28/25 05/29/25 23:59 23:59 23:59 Intake Total 2640 / 2640 Balance 2640 / 2640 Lab / Micro Data 05/29/25 06:50 05/29/25 06:50 Labs: Laboratory Results - last 24 hr 05/28/25 09:45: WBC 6.7, RBC 4.07 L, Hgb 11.2 L, Hct 35.1 L, MCV 86.2, MCH 27.5,MCHC 31.9 L, RDW Std Deviation 46.3 H, RDW Coeff of Anisa 14.7 H, Plt Count 369, MPV 9.3, Immature Gran % (Auto) 0.300, Neut % (Auto) 61.7, Lymph % (Auto) 27.3, [place] % (Auto) 8.7, Eos % (Auto) 1.3, Baso % (Auto) 0.7, Absolute Neuts (auto) 4.1, Absolute Lymphs (auto) 1.82, Nucleated RBC % 0, Sodium 133, Potassium 4.1, Chloride 97 L, Carbon Dioxide 22.7, Anion Gap 13, BUN 25 H, Creatinine 1.43 H, Estim Creat Clear Calc 41.91 L, Est GFR (MDRD) Non-Af 42 L, BUN/Creatinine Ratio 17.7, Glucose 160 H, Lactic Acid 1.2, Calcium 8.9 05/28/25 13:06: POC Glucose 133 H 05/28/25 16:35: POC Glucose 186 H 05/28/25 22:24: POC Glucose 143 H 05/29/25 06:50: WBC 6.5, RBC 3.85 L, Hgb 10.6 L, Hct 33.4 L, MCV 86.8, MCH 27.5,MCHC 31.7 L, RDW Std Deviation 46.8 H, RDW Coeff of Anisa 14.7 H, Plt Count 371, MPV 9.3, Sodium 136, Potassium 4.0, Chloride 102, Carbon Dioxide 20.5 L, Anion Gap 14, BUN 21 H, Creatinine 1.24 H, Estim Creat Clear Calc 47.97 L, Est GFR (MDRD) Non-Af 50 L, BUN/Creatinine Ratio 16.6, Glucose 131 H, Calcium 8.6 Physical Exam Narrative GENERAL: cooperative HEENT: Significant swelling involving the right upper lip with area of erythema EYES; Anicteric, Normal Conjunctiva NECK; supple, normal thyroid, RESPIRATORY: Diminished to auscultation CARDIOVASCULAR: Regular S1 S2, GI: soft, normoactive bowel sounds, : No Renal angle tenderness; EXTREMITIES: No edema, no clubbing, MUSCULOSKELETAL: no muscle wasting NEURO: Awake; no lateralizing signs. SKIN: No Rash PSYCH; Flat affect Assessment & Plan Assessment/Plan (1) Infected lip laceration: PLAN: Plan Patient is a 59-year-old lady with history of diabetes mellitus type 2 who presented with swelling and redness and pain involving the right upper lip. 1. Right upper lip swelling with cellulitis and failed outpatient antibiotics ? Admit under inpatient status to [facility]. Presentation consistent with cellulitis secondary to lip wound due to insect bite. Poorly controlled diabetes likely contributing to development of infection. Failed outpatient p.o. clindamycin. Notably aspiration was attempted in the ED on 05/25 with no drainage noted. Patient was started on IV doxycycline and admitted to regular nursing floor. With patient having failed outpatient therapy and with multiple allergies consult was placed to ID 2. Diabetes mellitus type 2 with skin complication?right upper lip cellulitis ? Patient has history of poorly controlled diabetes mellitus type 2 with recent hemoglobin A1c of 10.5. Glucose on admission was 160. Did continue with home regimen in addition to Accu-Cheks ACHS with sliding scale coverage 3. Chronic debility ? Patient is at an F 4. Class II obesity with BMI of 39.3 ? Complicating care weight loss advised 5. Chronic kidney disease stage IIIb ? Kidney function at baseline 6. Hypothyroidism ? Patient is on levothyroxine home dose continued 7. GERD ? Patient on PPI 8. Mood disorder ? Patient is on citalopram and Seroquel did continue 9. History of previous VTE ? Patient is on systemic anticoagulation with apixaban 10. Hypertension ? Blood pressure controlled, home medications continued with dose adjustment as needed 11. Dyslipidemia ?Patient is on atorvastatin and fenofibrate did continue 12. DVT prophylaxis ? Already on Eliquis Time spent in the patient's overall evaluation,decision-making process, review of diagnostic data, adjustment of management, discussion with other providers, nursing nursing and ancillary staff involved in patient's care documentation, 36 Minutes Charges/Coding Visit Charges Inpatient E&M: 78613 Subs Hosp L2 05/29/25 0820 <Electronically signed by John Shaw MD> Cosigner Signature (if applicable): CC: ~ Signed [facility] Work Phone: 1(120) 285-151108-04-2025 Discharge summary Author Delores Moya [facility] Note Date/Time May 28, 2025 4:5 1pm [facility] Medical Records Department [address] [place] [address] Emergency Department Summary 05/28/25 MR#: [id number] Acct: [id number] Name: CHRISTIANO BRARBradlyKIMBERLY Flanagan Rep #:[id number] : 1965 59 From: Delores Moya MD PCP: Dr. Lizet Linares MD Status:A DM IN Location: MS3 [id number] HPI History of Present Illness Chief Complaint: Wound Narrative Narrative: Patient is a 59-year-old female presenting emergency department for a wound to the right upper lip. Patient has a past medical history as below including diabetes and MRSA. Patient states that on Wednesday she started noticing that her lip was swelling and red. She came to the ED to be evaluated and a needle aspiration was attempted. She was given clindamycin and discharged home on this. Since then she states that the lip swelling has worsened. She denies anyfever or chills. Denies any difficulty swallowing or breathing. She has been taking the clindamycin as prescribed. She was seen by an [facility] today and was referred here to the ED for further evaluation. Denies chest pain, shortness ofbreath, abdominal pain, nausea or vomiting. [facility] Medical History MRSA (methicillin resistant staph aureus) culture positive Cataract (lens) fragments in eye following cataract surgery Anxiety and depression Diabetes mellitus, type 2 Pulmonary emboli Parathyroid disease History of left heart catheterization (LHC) (~05/21/22) CKD (chronic kidney disease) stage 3, GFR 30-59 ml/min Essential hypertension Orthostatic hypotension Hypothyroidism Chronic back pain Obesity (BMI 35.0-39.9 without comorbidity) Normochromic normocytic anemia Hyperlipidemia Former smoker Opiate abuse, continuous Intervertebral disc disorder with radiculopathy of lumbar region Carpal tunnel syndrome Kidney stones Thyroid disease Migraines Stomach ulcer HTN (hypertension) Home Medications ?Medication ?Instructions ?Recorded ?Last Taken ?Type rizatriptan 10 mg tablet 10 mg PO PRN Migraine Sympto ms 12/27/17 04/03/24 History atorvastatin 40 mg tablet 40 mg PO QHS #30 tabs 06/19/24 Rx metoprolol succinate 25 mg 25 mg PO DAILY #30 tabs 06/18/24 Rx tablet,extended release 24 hr pantoprazole 40 mg tablet,delayed 40 mg PO DAILY 06/1206/19/24 History release ranolazine 500 mg tablet,extended 500 mg PO BID #60 ta bs 06/12/22 06/19/24 Rx release,12 hr acetaminophen 325 mg tablet 650 mg (2 x 325 mg) PO Q6H PRN PRN 11/24/23 06/16/24 Rx Pain 1-10 Or Fever >100.7 #0 tabs melatonin 3 mg tablet 3 mg PO QHS PRN PRN Insomnia #0 11/24/23 06/19/24 Rx tabs sennosides 8.6 mg-docusate sodium 2 tab PO BID PRN PRN Constipation 01/05/24 06/19/24 Rx 50 mg tablet (Stool #0 tabs Softener-Stimulant Laxative) loperamide 2 mg capsule 2 mg PO Q6H PRN loose stool 04/02/24 03/08/24 History (Anti-Diarrheal (loperamide)) fluticasone propionate 50 2 spray intranasal DAILY 06/19/24 History mcg/actuation nasal spray,suspension (Aller-Scar) nitroglycerin 0.4 mg sublingual 0.4 mg sublingual Q5M PRN chest 06/20/24 Unknown History tablet pain promethazine 25 mg tablet 25 mg PO Q6H PRN nausea and 06/20/24 Unknown History vomiting apixaban 5 mg tablet (Eliquis) 5 mg PO BID 08/19/24 Un known History bisacodyl 10 mg rectal suppository 10 mg HI DAILY PRN constipation 08/19/24 Unknown History dulaglutide 3 mg/0.5 mL 3 mg subcut QWEEK 08/19/24 U nknown History subcutaneous pen injector (Trulicity) fenofibrate 160 mg tablet 160 mg PO DAILY 08/19/24 Unk nown History insulin glargine-yfgn 100 unit/mL 48 unit subcut BID 1 Unknown History (3 mL) subcutaneous pen magnesium citrate (Citrate of 150 ml PO PRN PRN consti pation 08/19/24 Unknown History Magnesia oral) magnesium hydroxide 400 mg/5 mL 30 ml PO DAILY PRN con stipation 08/19/24 Unknown History oral suspension (Dulcolax (magnesium hydroxide)) ondansetron 4 mg disintegrating 4 mg PO Q8H PRN PRN Na usea #10 tabs 10/24/24 Unknown Rx tablet carboxymethylcellulose sodium 1 % 1 drp ophthalmic (ey e) TID 01/30/25 Unknown History eye drops (Artificial Tears (carboxymethylcellulose)) citalopram 20 mg tablet 20 mg PO QDAY 01/30/25 Unkno wn History quetiapine 25 mg tablet 25 mg PO QHS 01/30/25 Unknow n History levothyroxine 137 mcg tablet 137 mcg PO QDAY #90 tabs 04/26/25 Unknown Rx (Levoxyl) oxycodone-acetaminophen 5 mg-325 1 tab PO .every4 hour s PRN pain 30 05/23/25 Unknown Rx mg tablet days #100 tabs clindamycin HCl 150 mg capsule 450 mg (3 x 150 mg) PO TID #90 05/26/25 Unknown Rx CAPSULES oxycodone-acetaminophen 5 mg-325 1 tab PO Q6H PRN PRN Pain 3 days 05/26/25 Unknown Rx mg tablet #12 TABLETS Allergy/AdvReac Type Severity Reaction Status Date / Time celecoxib (From Celebrex) Allergy Itching Verified 05/28/25 09:15 ciprofloxacin (From Cipro) Allergy Swelling Verified 05/28/25 09:15 ciprofloxacin HCl (From Allergy Swelling Verified 05/28/25 09:15 Cipro) codeine Allergy Hives Verified 05/28/25 09:15 ibuprofen Allergy Hives Verified 05/28/25 09:15 naproxen Allergy Hives Verified 05/28/25 09:15 Penicillins Allergy Hives Verified 05/28/25 09:15 tramadol HCl (From Ultram) Allergy Hives Verified 05/28/25 09:15 ketorolac (From Toradol) AdvReac Swelling Verified 05/28/25 09:15 Family History Mother Cancer CVA (cerebral vascular accident) Hypertension Heart disease Myocardial infarction Diabetes Father Asthma Surgical History History of cholecystectomy S/P trigger finger release H/O: hysterectomy Hx of section Social History household members: other details: currently living in a NH for therapy for chronic back pain housing: long-term Smoking Status: Former smoker Tobacco: How many years used: 46 how long ago did patient quit smoking: Quit 09/2021, smoked 1 ppd since teen until quit. alcohol intake: never substance use type: other details: History of chronic opiate use. Denies abuse. ROS ROS ED ROS Narrative See HPI EXAM Physical Exam Narrative Exam Narrative: Vital signs: Reviewed General: Alert and oriented. No acute distress HEENT: Head is normocephalic and atraumatic, sinuses nontender, pupils equal round and reactive. Nares are patent. There is mild swelling and erythema to the right upper lip extending to the naris. There is no swelling or erythema ofthe bottom lip. There is no abnormalities of the oropharynx or tongue. Neck: Supple without lymphadenopathy nontender Cardiovascular: Regular rate and rhythm, no murmurs. No rubs or gallops. Normal S1 and S2 Respiratory: Clear to auscultation bilaterally. No wheezes, rales, rhonchi Abdominal: Soft and tender. Normal bowel sounds. No guarding or rebound. Nonsurgical abdomen Extremities: No tenderness. No bruising. Normal range of motion. Normal sensation. Skin: No rash or redness. Neurological: Cranial nerves II through XII are grossly intact. Normal strengthand sensation. Normal cerebellar function The rest of the physical exam is unremarkable Const Vital Signs: 05/28/25 09:15 05/28/25 09:15 05/28/25 09:31 Temperature 98.8 F 98.8 F Temperature Source Oral Oral Pulse Rate 73 73 73 Respiratory Rate 16 16 16 Blood Pressure 127/51 H 127/51 H Blood Pressure Mean 76 76 Pulse Ox 97 97 97 05/28/25 10:40 Temperature 98.2 F Temperature Source Oral Pulse Rate 67 Respiratory Rate 18 Blood Pressure 131/42 H Blood Pressure Mean 71 Pulse Ox 95 MDM MDM MDM Narrative Medical decision making narrative: Patient is a 59-year-old female presenting to the emergency department for a cellulitis of the right upper lip. Patient was seen and examined. Vitals are stable. Patient resting in bed comfortably no acute distress. Patient is afebrile on arrival. She is tolerating her secretions. No difficulty breathing. There is no swelling of her posterior oropharynx or palate concerning for [place]. There is no gingival swelling or tenderness to suspect a dental infection. Likely a cellulitis versus abscess of the right upper lip. She has been taking clindamycin outpatient and has failed this. With the continued worsening of the cellulitis patient would likely benefit from inpatient admission for IV antibiotics. CBC with no leukocytosis. With the isolated swelling and cellulitis there is no indication for CT imaging of face. Patient agreeable with admission. Patient admitted to hospitalist for further management. She does have a history of MRSA, Vanco and clindamycin given here in the ED. History & Record Review Discussion w/independent historian: Patient Additional record(s) reviewed:: Prior outpatient record and Prior ED visit Lab Data Attestation: I reviewed the patient's lab results. Labs: Laboratory Results - last 24 hr 05/28/25 09:45 WBC 6.7 RBC 4.07 L Hgb 11.2 L Hct 35.1 L MCV 86.2 MCH 27.5 MCHC 31.9 L RDW Std Deviation 46.3 H RDW Coeff of Anisa 14.7 H Plt Count 369 MPV 9.3 Immature Gran % (Auto) 0.300 Neut % (Auto) 61.7 Lymph % (Auto) 27.3 [place] % (Auto) 8.7 Eos % (Auto) 1.3 Baso % (Auto) 0.7 Absolute Neuts (auto) 4.1 Absolute Lymphs (auto) 1.82 Nucleated RBC % 0 Sodium 133 Potassium 4.1 Chloride 97 L Carbon Dioxide 22.7 Anion Gap 13 BUN 25 H Creatinine 1.43 H Estim Creat Clear Calc 41.91 L Est GFR (MDRD) Non-Af 42 L BUN/Creatinine Ratio 17.7 Glucose 160 H Lactic Acid 1.2 Calcium 8.9 Management Discussion w/another healthcare provider: Hospitalist Discharge Plan Disposition Disposition: Acute Care Hospital [facility] Discharge Date/Time: 05/28/25 13:26 What to do if you have Problems For any increased pain, shortness of breath, bleeding, nausea or vomiting, chestpain, or any unexpected problems, contact your Primary Care Provider. Call [facility] ([phone]) or report to the closest Emergency Room. Call 911 if necessary. 05/28/25 1651 <Electronically signed by Delores Moya MD> Cosigner Signature (if applicable): CC: Dr. Lizet Linares MD ~ Signed [facility] Work Phone: 1(389) 361-674708-04-2025 History and physical note Author Chavez Alcala [facility] Note Date/Time May 28, 2025 12: 16pm [facility] Medical Records Department [address] [place] [address] H&P Exam - Hospitalist 05/28/25 1134 MR#: [id number] Acct: [id number] Name: TERRANCE BRAR Rep #:[id number] : 1965 59 From: Chavez mayo DO PCP: Dr. Lizet Linares MD Status:A DM IN Location: MS3 [id number] HPI - General General Date of Admission: 05/28/25 Date of Service: 05/28/25 Chief Complaint: Worsening upper lip wound with surrounding cellulitis HPI Narrative TERRANCE BRAR, is a 59 F who presented to [facility] ED on 05/28/25 with worsening upper lip wound with surrounding cellulitis. Patient lives at [facility]. She initially came to the ED on with upper lip swelling. She attributed this to a spider bite that happenedon . She had significant swelling noted on Wednesday morning. In the ED they attempted to aspirate it but there was no drainage noted. She was given a dose of IV clindamycin (penicillin allergy) in the ED and then discharged back to her facility on p.o. clindamycin. She had no improvement with the oral antibiotics over the weekend so she came back in today for further evaluation. In the ED she was noted to have continued right upper lip swelling with surrounding cellulitis in the skin right above the lip. She noted considerable pain in the area. She was normotensive, afebrile and otherwise hemodynamically stable and WBC count was normal. However, given worsening swelling with cellulitis and suspected failed outpatient antibiotics, hospitalist was contacted for admission. I saw the patient at bedside in the ED. Patient was sitting back fairly comfortably in bed, conversing normally, in no acute distress. She had been given a dose of IV morphine for the pain with moderate relief of pain. She reports mild pain at this time. Denies any fevers or chills. Denies any other pain or discomfort. Will be admitted for further management. FORMERLY [facility], [facility] Medical History MRSA (methicillin resistant staph aureus) culture positive Cataract (lens) fragments in eye following cataract surgery Anxiety and depression Diabetes mellitus, type 2 Pulmonary emboli Parathyroid disease History of left heart catheterization (LHC) (~05/21/22) CKD (chronic kidney disease) stage 3, GFR 30-59 ml/min Essential hypertension Orthostatic hypotension Hypothyroidism Chronic back pain Obesity (BMI 35.0-39.9 without comorbidity) Normochromic normocytic anemia Hyperlipidemia Former smoker Opiate abuse, continuous Intervertebral disc disorder with radiculopathy of lumbar region Carpal tunnel syndrome Kidney stones Thyroid disease Migraines Stomach ulcer HTN (hypertension) Home Medications ?Medication ?Instructions ?Recorded ?Last Taken ?Type rizatriptan 10 mg tablet 10 mg PO PRN Migraine Sympto ms 12/27/17 04/03/24 History atorvastatin 40 mg tablet 40 mg PO QHS #30 tabs 06/19/24 Rx metoprolol succinate 25 mg 25 mg PO DAILY #30 tabs 06/18/24 Rx tablet,extended release 24 hr pantoprazole 40 mg tablet,delayed 40 mg PO DAILY 06/1206/19/24 History release ranolazine 500 mg tablet,extended 500 mg PO BID #60 ta bs 06/12/22 06/19/24 Rx release,12 hr acetaminophen 325 mg tablet 650 mg (2 x 325 mg) PO Q6H PRN PRN 11/24/23 06/16/24 Rx Pain 1-10 Or Fever >100.7 #0 tabs melatonin 3 mg tablet 3 mg PO QHS PRN PRN Insomnia #0 11/24/23 06/19/24 Rx tabs sennosides 8.6 mg-docusate sodium 2 tab PO BID PRN PRN Constipation 01/05/24 06/19/24 Rx 50 mg tablet (Stool #0 tabs Softener-Stimulant Laxative) loperamide 2 mg capsule 2 mg PO Q6H PRN loose stool 04/02/24 03/08/24 History (Anti-Diarrheal (loperamide)) fluticasone propionate 50 2 spray intranasal DAILY 06/19/24 History mcg/actuation nasal spray,suspension (Aller-Scar) nitroglycerin 0.4 mg sublingual 0.4 mg sublingual Q5M PRN chest 06/20/24 Unknown History tablet pain promethazine 25 mg tablet 25 mg PO Q6H PRN nausea and 06/20/24 Unknown History vomiting apixaban 5 mg tablet (Eliquis) 5 mg PO BID 08/19/24 Un known History bisacodyl 10 mg rectal suppository 10 mg HI DAILY PRN constipation 08/19/24 Unknown History dulaglutide 3 mg/0.5 mL 3 mg subcut QWEEK 08/19/24 U nknown History subcutaneous pen injector (Trulicity) fenofibrate 160 mg tablet 160 mg PO DAILY 08/19/24 Unk nown History insulin glargine-yfgn 100 unit/mL 48 unit subcut BID 1 Unknown History (3 mL) subcutaneous pen magnesium citrate (Citrate of 150 ml PO PRN PRN consti pation 08/19/24 Unknown History Magnesia oral) magnesium hydroxide 400 mg/5 mL 30 ml PO DAILY PRN con stipation 08/19/24 Unknown History oral suspension (Dulcolax (magnesium hydroxide)) ondansetron 4 mg disintegrating 4 mg PO Q8H PRN PRN Na usea #10 tabs 10/24/24 Unknown Rx tablet carboxymethylcellulose sodium 1 % 1 drp ophthalmic (ey e) TID 01/30/25 Unknown History eye drops (Artificial Tears (carboxymethylcellulose)) citalopram 20 mg tablet 20 mg PO QDAY 01/30/25 Unkno wn History quetiapine 25 mg tablet 25 mg PO QHS 01/30/25 Unknow n History levothyroxine 137 mcg tablet 137 mcg PO QDAY #90 tabs 04/26/25 Unknown Rx (Levoxyl) oxycodone-acetaminophen 5 mg-325 1 tab PO .every4 hour s PRN pain 30 05/23/25 Unknown Rx mg tablet days #100 tabs clindamycin HCl 150 mg capsule 450 mg (3 x 150 mg) PO TID #90 05/26/25 Unknown Rx CAPSULES oxycodone-acetaminophen 5 mg-325 1 tab PO Q6H PRN PRN Pain 3 days 05/26/25 Unknown Rx mg tablet #12 TABLETS Allergy/AdvReac Type Severity Reaction Status Date / Time celecoxib (From Celebrex) Allergy Itching Verified 05/28/25 09:15 ciprofloxacin (From Cipro) Allergy Swelling Verified 05/28/25 09:15 ciprofloxacin HCl (From Allergy Swelling Verified 05/28/25 09:15 Cipro) codeine Allergy Hives Verified 05/28/25 09:15 ibuprofen Allergy Hives Verified 05/28/25 09:15 naproxen Allergy Hives Verified 05/28/25 09:15 Penicillins Allergy Hives Verified 05/28/25 09:15 tramadol HCl (From Ultram) Allergy Hives Verified 05/28/25 09:15 ketorolac (From Toradol) AdvReac Swelling Verified 05/28/25 09:15 Family History Mother Cancer CVA (cerebral vascular accident) Hypertension Heart disease Myocardial infarction Diabetes Father Asthma Surgical History History of cholecystectomy S/P trigger finger release H/O: hysterectomy Hx of section Social History household members: other details: currently living in a NH for therapy for chronic back pain housing: long-term Smoking Status: Former smoker Tobacco: How many years used: 46 how long ago did patient quit smoking: Quit 09/2021, smoked 1 ppd since teen until quit. alcohol intake: never substance use type: other details: History of chronic opiate use. Denies abuse. ROS Constitutional Constitutional: Denies chills, fatigue, fever(s) or weakness Eyes Eyes: Denies change in vision ENT HEENT: Reports other Details: Upper lip swelling with pain Cardiovascular Cardiovascular: Denies chest pain Respiratory/Chest Respiratory/Chest: Denies shortness of breath at rest Gastrointestinal Gastrointestinal: Denies abdominal pain Vital Signs Vital Signs Vital Signs: 05/28/25 09:15 05/28/25 09:15 05/28/25 09:31 Temperature 98.8 F 98.8 F Temperature Source Oral Oral Pulse Rate 73 73 73 Respiratory Rate 16 16 16 Blood Pressure 127/51 H 127/51 H Blood Pressure Mean 76 76 Pulse Ox 97 97 97 05/28/25 10:40 Temperature 98.2 F Temperature Source Oral Pulse Rate 67 Respiratory Rate 18 Blood Pressure 131/42 H Blood Pressure Mean 71 Pulse Ox 95 Weight Weight: 92.4 kg Body Mass Index (BMI) 39.7 Physical Exam Const alert, oriented x3 and no apparent distress Constitutional Narrative: Upper middle-aged female, class II obesity, mildly fatigued appearing but otherwise sitting back comfortably in bed, conversing normally, in no acute distress. General Appearance: cooperative and comfortable HEENT normocephalic, head/scalp atraumatic, hearing grossly normal bilaterally and moist oral mucous membranes HEENT Narrative: Significant right upper lip swelling with surrounding erythema into the skin above the lip. No fluctuance noted. Eyes PERRL, EOMs intact bilaterally and conjunctivae normal Neck full ROM Chest inspection of chest normal Resp normal respiratory effort, normal air movement, no use of accessory muscles and clear to auscultation bilaterally Cardio regular rate, regular rhythm, no murmurs and peripheral pulses 2+ throughout GI normal to inspection, nondistended, normoactive bowel sounds, soft to palpation,non-tender and non-distended Back/Spine normal ROM Extremity normal to inspection, full ROM and no pedal edema Skin no rashes or lesions noted Psych mental status grossly normal Mood & Affect: anxious Results Lab / Micro Data 05/28/25 09:45 05/28/25 09:45 Labs: Laboratory Results - last 24 hr 05/28/25 09:45: WBC 6.7, RBC 4.07 L, Hgb 11.2 L, Hct 35.1 L, MCV 86.2, MCH 27.5,MCHC 31.9 L, RDW Std Deviation 46.3 H, RDW Coeff of Anisa 14.7 H, Plt Count 369, MPV 9.3, Immature Gran % (Auto) 0.300, Neut % (Auto) 61.7, Lymph % (Auto) 27.3, [place] % (Auto) 8.7, Eos % (Auto) 1.3, Baso % (Auto) 0.7, Absolute Neuts (auto) 4.1, Absolute Lymphs (auto) 1.82, Nucleated RBC % 0, Sodium 133, Potassium 4.1, Chloride 97 L, Carbon Dioxide 22.7, Anion Gap 13, BUN 25 H, Creatinine 1.43 H, Estim Creat Clear Calc 41.91 L, Est GFR (MDRD) Non-Af 42 L, BUN/Creatinine Ratio 17.7, Glucose 160 H, Lactic Acid 1.2, Calcium 8.9 Assessment & Plan Assessment/Plan (1) Infected lip laceration: PLAN: Plan Patient is a 59-year-old female who presented to [facility] ED on 05/28/2025 with worsening upper lip swelling with cellulitis and failed outpatient antibiotics. 1. Right upper lip swelling with cellulitis and failed outpatient antibiotics ? Admit under inpatient status to [facility]. Presentation consistent with cellulitis secondary to lip wound due to insect bite. Poorly controlled diabetes likely contributing to development of infection. Failed outpatient p.o. clindamycin. Notably aspiration was attempted in the ED on 05/25 with no drainage noted. Will treat with IV doxycycline for now. No systemic signs of infection at this time. Pain control with oxycodone as needed. Monitor closely. No need for imaging for further evaluation at this time. 2. Poorly controlled type 2 diabetes mellitus ? Most recent A1c 10.5% on 04/06. Blood glucose 160 on admit. Will treat with reduced dose of Lantus 30 units twice daily and Humalog 8 units plus sliding scale insulin with meals while inpatient, adjust as needed. Hold home Trulicity. 3. Chronic debility ? Has lived at [facility] for the past 1.5 years. Will plan to return there at discharge. Chronic medical conditions: ? Class II obesity: BMI 39.8 on admit. Complicates hospital course and care. ? CKD stage IIIb: Creatinine 1.43 on admit, stable at baseline. ? Hypothyroidism: Continue home Synthroid. ? GERD: Continue home PPI. ? Mood disorder: Stable. Continue home citalopram and Seroquel. ? History of VTE, hypertension, hyperlipidemia: Normotensive on admit. Continuehome Eliquis, metoprolol, ranolazine, atorvastatin and fenofibrate. DVT prophylaxis: Not indicated, on Eliquis CODE STATUS: Full code, verified Expected disposition: Back to [facility], 2 to 3 days Total clinical time spent by myself addressing the patient's medical issues, reviewing all the data, and collaborating with patient's care team: 75 minutes. Charges/Coding Visit Charges Inpatient E&M: 89213 Init Hosp L3 05/28/25 1216 <Electronically signed by Chavez Alcala DO> Cosigner Signature (if applicable): CC: Dr. Chavez Alcala DO; Dr. Lizet Linares MD~ Signed [facility] Work Phone: 1(502) 175-441008-04-2025 Evaluation note* Diagnosis Onset Date Resolution Status Admit Date Abscess of lip acute May 11:34am History of diabetes mellitus acute May 28, 2025 11:34am Infected lip laceration acute A ugust 2024 11:34am [facility] Work Phone: 1(646) 736-832008-04-2025 Evaluation note* Diagnosis Onset Date Resolution Status Admit Date Abscess of lip resolved May 11:34am History of diabetes mellitus inactiv e May 28, 2025 11:34am Infected lip laceration inactive A ugust 2024 11:34am [facility] Work Phone: 1([phone]) 355-356008-04-2025 Evaluation note* Diagnosis Onset Date Resolution Status Admit Date Abscess of lip resolved May 11:34am History of diabetes mellitus inactiv e May 28, 2025 11:34am Infected lip laceration inactive A ugust 2024 11:34am Abscess of lip resolved May h, 2024 9:32am [facility] Work Phone: 1([phone]) 910-847008-04-2025 Evaluation note* Diagnosis Onset Date Resolution Status Admit Date Abscess of lip resolved May 11:34am History of diabetes mellitus inactiv e May 28, 2025 11:34am Infected lip laceration inactive A ugust 2024 11:34am Abscess of lip resolved May 14t h, 2024 9:32am Abscess of lip resolved June 15n d, 2024 1:35pm [facility] Work Phone: 1([phone] 660-420108-04-2025 History and physical note [facility] Medical Records Department [address] [place] [address] H&P Exam - Hospitalist 05/28/25 1134 MR#: [id number] Acct: [id number] Name: MAYKELJENNIFERCHRISTELTal Flanagan Rep #:[id number] : 1965 59 From: Chavez mayo DO PCP: Dr. Lizet Linares MD Status:A DM IN [place] [facility] HPI - General General Date of Admission: 05/28/25 Date of Service: 05/28/25 Chief Complaint: Worsening upper lip wound with surrounding cellulitis HPI Narrative TERRANCE BRAR, is a 59 F who presented to [facility] ED on 05/28/25 with worsening upper lip wound with surrounding cellulitis. Patient lives at [facility]. She initially came to the ED on with upper lip swelling. She attributed this to a spider bite thathappenedon . She had significant swelling noted on Wednesday morning. In the ED they attemptedto aspirate it but there was no drainage noted. She was given a dose of IV clindamycin (penicillin allergy) in the ED and then discharged back to her facility on p.o. clindamycin. She had no improvement with the oral antibiotics over the weekend so she came back in today for further evaluation. In the ED she was noted to have continued right upper lip swelling with surrounding cellulitis in the skin right above the lip. She noted considerable pain in the area. She was normotensive, afebrile andotherwise hemodynamically stable and WBC count was normal. However, given worsening swelling with cellulitis and suspected failed outpatient antibiotics, hospitalist was contacted for admission. I saw the patient at bedside in the ED. Patient was sitting back fairly comfortably in bed, conversing normally, in no acute distress. She had been given a dose of IV morphine for the pain with moderate relief of pain. She reports mild pain at this time. Denies any fevers or chills. Denies any other pain or discomfort. Will be admitted for further management. FORMERLY [facility], [facility] Medical History MRSA (methicillin resistant staph aureus) culture positive Cataract (lens) fragments in eye following cataract surgery Anxiety and depression Diabetes mellitus, type 2 Pulmonary emboli Parathyroid disease History of left heart catheterization (LHC) (~05/21/22) CKD (chronic kidney disease) stage 3, GFR 30-59 ml/min Essential hypertension Orthostatic hypotension Hypothyroidism Chronic back pain Obesity (BMI 35.0-39.9 without comorbidity) Normochromic normocytic anemia Hyperlipidemia Former smoker Opiate abuse, continuous Intervertebral disc disorder with radiculopathy of lumbar region Carpal tunnel syndrome Kidney stones Thyroid disease Migraines Stomach ulcer HTN (hypertension) Home Medications ?Medication ?Instructions ?Recorded ?Last Taken ?Type rizatriptan 10 mg tablet 10 mg PO PRN Migraine Sympto ms 12/27/17 04/03/24 History atorvastatin 40 mg tablet 40 mg PO QHS #30 tabs 06/19/24 Rx metoprolol succinate 25 mg 25 mg PO DAILY #30 tabs 06/18/24 Rx tablet,extended release 24 hr pantoprazole 40 mg tablet,delayed 40 mg PO DAILY 06/1206/19/24 History release ranolazine 500 mg tablet,extended 500 mg PO BID #60 ta bs 06/12/22 06/19/24 Rx release,12 hr acetaminophen 325 mg tablet 650 mg (2 x 325 mg) PO Q6H PRN PRN 11/24/23 06/16/24 Rx Pain 1-10 Or Fever >100.7 #0 tabs melatonin 3 mg tablet 3 mg PO QHS PRN PRN Insomnia #0 11/24/23 06/19/24 Rx tabs sennosides 8.6 mg-docusate sodium 2 tab PO BID PRN PRN Constipation 01/05/24 06/19/24 Rx 50 mg tablet (Stool #0 tabs Softener-Stimulant Laxative) loperamide 2 mg capsule 2 mg PO Q6H PRN loose stool 04/02/24 03/08/24 History (Anti-Diarrheal (loperamide)) fluticasone propionate 50 2 spray intranasal DAILY 06/19/24 History mcg/actuation nasal spray,suspension (Aller-Scar) nitroglycerin 0.4 mg sublingual 0.4 mg sublingual Q5M PRN chest 06/20/24 Unknown History tablet pain promethazine 25 mg tablet 25 mg PO Q6H PRN nausea and 06/20/24 Unknown History vomiting apixaban 5 mg tablet (Eliquis) 5 mg PO BID 08/19/24 Un known History bisacodyl 10 mg rectal suppository 10 mg HI DAILY PRN constipation 08/19/24 Unknown History dulaglutide 3 mg/0.5 mL 3 mg subcut QWEEK 08/19/24 U nknown History subcutaneous pen injector (Trulicity) fenofibrate 160 mg tablet 160 mg PO DAILY 08/19/24 Unk nown History insulin glargine-yfgn 100 unit/mL 48 unit subcut BID 1 Unknown History (3 mL) subcutaneous pen magnesium citrate (Citrate of 150 ml PO PRN PRN consti pation 08/19/24 Unknown History Magnesia oral) magnesium hydroxide 400 mg/5 mL 30 ml PO DAILY PRN con stipation 08/19/24 Unknown History oral suspension (Dulcolax (magnesium hydroxide)) ondansetron 4 mg disintegrating 4 mg PO Q8H PRN PRN Na usea #10 tabs 10/24/24 Unknown Rx tablet carboxymethylcellulose sodium 1 % 1 drp ophthalmic (ey e) TID 01/30/25 Unknown History eye drops (Artificial Tears (carboxymethylcellulose)) citalopram 20 mg tablet 20 mg PO QDAY 01/30/25 Unkno wn History quetiapine 25 mg tablet 25 mg PO QHS 01/30/25 Unknow n History levothyroxine 137 mcg tablet 137 mcg PO QDAY #90 tabs 04/26/25 Unknown Rx (Levoxyl) oxycodone-acetaminophen 5 mg-325 1 tab PO .every4 hour s PRN pain 30 05/23/25 Unknown Rx mg tablet days #100 tabs clindamycin HCl 150 mg capsule 450 mg (3 x 150 mg) PO TID #90 05/26/25 Unknown Rx CAPSULES oxycodone-acetaminophen 5 mg-325 1 tab PO Q6H PRN PRN Pain 3 days 05/26/25 Unknown Rx mg tablet #12 TABLETS Allergy/AdvReac Type Severity Reaction Status Date / Time celecoxib (From Celebrex) Allergy Itching Verified 05/28/25 09:15 ciprofloxacin (From Cipro) Allergy Swelling Verified 05/28/25 09:15 ciprofloxacin HCl (From Allergy Swelling Verified 05/28/25 09:15 Cipro) codeine Allergy Hives Verified 05/28/25 09:15 ibuprofen Allergy Hives Verified 05/28/25 09:15 naproxen Allergy Hives Verified 05/28/25 09:15 Penicillins Allergy Hives Verified 05/28/25 09:15 tramadol HCl (From Ultram) Allergy Hives Verified 05/28/25 09:15 ketorolac (From Toradol) AdvReac Swelling Verified 05/28/25 09:15 Family History Mother Cancer CVA (cerebral vascular accident) Hypertension Heart disease Myocardial infarction Diabetes Father Asthma Surgical History History of cholecystectomy S/P trigger finger release H/O: hysterectomy Hx of section Social History household members: other details: currently living in a NH for therapy for chronic back pain housing: long-term Smoking Status: Former smoker Tobacco: How many years used: 46 how long ago did patient quit smoking: Quit 09/2021, smoked 1 ppd since teen until quit. alcohol intake: never substance use type: other details: History of chronic opiate use. Denies abuse. ROS Constitutional Constitutional: Denies chills, fatigue, fever(s) or weakness Eyes Eyes: Denies change in vision ENT HEENT: Reports other Details: Upper lip swelling with pain Cardiovascular Cardiovascular: Denies chest pain Respiratory/Chest Respiratory/Chest: Denies shortness of breath at rest Gastrointestinal Gastrointestinal: Denies abdominal pain Vital Signs Vital Signs Vital Signs: 05/28/25 09:15 05/28/25 09:15 05/28/25 09:31 Temperature 98.8 F 98.8 F Temperature Source Oral Oral Pulse Rate 73 73 73 Respiratory Rate 16 16 16 Blood Pressure 127/51 H 127/51 H Blood Pressure Mean 76 76 Pulse Ox 97 97 97 05/28/25 10:40 Temperature 98.2 F Temperature Source Oral Pulse Rate 67 Respiratory Rate 18 Blood Pressure 131/42 H Blood Pressure Mean 71 Pulse Ox 95 Weight Weight: 92.4 kg Body Mass Index (BMI) 39.7 Physical Exam Const alert, oriented x3 and no apparent distress Constitutional Narrative: Upper middle-aged female, class II obesity, mildly fatigued appearing but otherwise sitting back comfortably in bed, conversing normally, in no acute distress. General Appearance: cooperative and comfortable HEENT normocephalic, head/scalp atraumatic, hearing grossly normal bilaterally and moist oral mucous membranes HEENT Narrative: Significant right upper lip swelling with surrounding erythema into the skin above the lip. No fluctuance noted. Eyes PERRL, EOMs intact bilaterally and conjunctivae normal Neck full ROM Chest inspection of chest normal Resp normal respiratory effort, normal air movement, no use of accessory muscles and clear to auscultation bilaterally Cardio regular rate, regular rhythm, no murmurs and peripheral pulses 2+ throughout GI normal to inspection, nondistended, normoactive bowel sounds, soft to palpation,non-tender and non-distended Back/Spine normal ROM Extremity normal to inspection, full ROM and no pedal edema Skin no rashes or lesions noted Psych mental status grossly normal Mood & Affect: anxious Results Lab / Micro Data 05/28/25 09:45 05/28/25 09:45 Labs: Laboratory Results - last 24 hr 05/28/25 09:45: WBC 6.7, RBC 4.07 L, Hgb 11.2 L, Hct 35.1 L, MCV 86.2, MCH 27.5,MCHC 31.9 L, RDW Std Deviation 46.3 H, RDW Coeff of Anisa 14.7 H, Plt Count 369, MPV 9.3, Immature Gran % (Auto) 0.300, Neut % (Auto) 61.7, Lymph % (Auto) 27.3, [place] % (Auto) 8.7, Eos % (Auto) 1.3, Baso % (Auto) 0.7, Absolute Neuts (auto) 4.1, Absolute Lymphs (auto) 1.82, Nucleated RBC % 0, Sodium 133, Potassium 4.1, Chloride 97 L, Carbon Dioxide 22.7, Anion Gap 13, BUN 25 H, Creatinine 1.43 H, Estim Creat Clear Calc 41.91 L, Est GFR (MDRD) Non-Af 42 L, BUN/Creatinine Ratio 17.7, Glucose 160 H, Lactic Acid 1.2, Calcium 8.9 Assessment & Plan Assessment/Plan (1) Infected lip laceration: PLAN: Plan Patient is a 59-year-old female who presented to [facility] ED on 05/28/2025 with worsening upper lip swelling with cellulitis and failed outpatient antibiotics. 1. Right upper lip swelling with cellulitis and failed outpatient antibiotics ? Admit under inpatient status to [facility]. Presentation consistent with cellulitis secondary to lipwound due to insect bite. Poorly controlled diabetes likely contributing to development of infection. Failed outpatient p.o. clindamycin. Notably aspiration was attempted in the ED on 05/25 with no drainage noted. Will treat with IV doxycycline for now. No systemic signs of infection at this time. Pain control with oxycodone as needed. Monitor closely. No need for imaging for further evaluation at this time. 2. Poorly controlled type 2 diabetes mellitus ? Most recent A1c 10.5% on 04/06. Blood glucose 160 on admit. Will treat with reduced dose of [id number] units twice daily and Humalog 8 units plus sliding scale insulin with meals while inpatient, adjust as needed. Hold home Trulicity. 3. Chronic debility ? Has lived at [facility] for the past 1.5 years. Will plan to return there at discharge. Chronic medical conditions: ? Class II obesity: BMI 39.8 on admit. Complicates hospital course and care. ? CKD stage IIIb: Creatinine 1.43 on admit, stable at baseline. ? Hypothyroidism: Continue home Synthroid. ? GERD: Continue home PPI. ? Mood disorder: Stable. Continue home citalopram and Seroquel. ? History of VTE, hypertension, hyperlipidemia: Normotensive on admit. Continuehome Eliquis, metoprolol, ranolazine, atorvastatin and fenofibrate. DVT prophylaxis: Not indicated, on Eliquis CODE STATUS: Full code, verified Expected disposition: Back to [facility], 2 to 3 days Total clinical time spent by myself addressing the patient's medical issues, reviewing all the data, and collaborating with patient's care team: 75 minutes. Charges/Coding Visit Charges Inpatient E&M: 84004 Init Hosp L3 05/28/25 1216 Cosigner Signature (if applicable): CC: Dr. Chavez Alcala DO; Dr. Lizet Linares MD~ Signed [facility]08-02-2025 Discharge summary [facility] Medical Records Department [address] [place] [address] Emergency Department Summary 05/26/25 MR#: [id number] Acct: [id number] Name: TERRANCE BRAR Rep #:[id number] : 1965 59 From: Raúl Brooks PCP: Dr. Lizet Linares MD Status:R EG ER Location: ED HPI History of Present Illness Chief Complaint: Edema Informant: patient Narrative Narrative: Presents by EMS from [facility] progressive swelling right upper lip for last 4 days.No fevers or chills. No trauma. History of diabetes. Denies any drainage. Edentulous upper teeth denies wearing dentures. Prior similar symptoms: No PFSH [facility] [facility], [facility] Medical History MRSA (methicillin resistant staph aureus) culture positive Cataract (lens) fragments in eye following cataract surgery Anxiety and depression Diabetes mellitus, type 2 Pulmonary emboli Parathyroid disease History of left heart catheterization (LHC) (~05/21/22) CKD (chronic kidney disease) stage 3, GFR 30-59 ml/min Essential hypertension Orthostatic hypotension Hypothyroidism Chronic back pain Obesity (BMI 35.0-39.9 without comorbidity) Normochromic normocytic anemia Hyperlipidemia Former smoker Opiate abuse, continuous Intervertebral disc disorder with radiculopathy of lumbar region Carpal tunnel syndrome Kidney stones Thyroid disease Migraines Stomach ulcer HTN (hypertension) Home Medications ?Medication ?Instructions ?Recorded ?Last Taken ?Type rizatriptan 10 mg tablet 10 mg PO PRN Migraine Sympto ms 12/27/17 04/03/24 History atorvastatin 40 mg tablet 40 mg PO QHS #30 tabs 06/19/24 Rx metoprolol succinate 25 mg 25 mg PO DAILY #30 tabs 06/18/24 Rx tablet,extended release 24 hr pantoprazole 40 mg tablet,delayed 40 mg PO DAILY 06/1206/19/24 History release ranolazine 500 mg tablet,extended 500 mg PO BID #60 ta bs 06/12/22 06/19/24 Rx release,12 hr acetaminophen 325 mg tablet 650 mg (2 x 325 mg) PO Q6H PRN PRN 11/24/23 06/16/24 Rx Pain 1-10 Or Fever >100.7 #0 tabs melatonin 3 mg tablet 3 mg PO QHS PRN PRN Insomnia #0 11/24/23 06/19/24 Rx tabs sennosides 8.6 mg-docusate sodium 2 tab PO BID PRN PRN Constipation 01/05/24 06/19/24 Rx 50 mg tablet (Stool #0 tabs Softener-Stimulant Laxative) loperamide 2 mg capsule 2 mg PO Q6H PRN loose stool 04/02/24 03/08/24 History (Anti-Diarrheal (loperamide)) fluticasone propionate 50 2 spray intranasal DAILY 06/19/24 History mcg/actuation nasal spray,suspension (Aller-Scar) nitroglycerin 0.4 mg sublingual 0.4 mg sublingual Q5M PRN chest 06/20/24 Unknown History tablet pain promethazine 25 mg tablet 25 mg PO Q6H PRN nausea and 06/20/24 Unknown History vomiting apixaban 5 mg tablet (Eliquis) 5 mg PO BID 08/19/24 Un known History bisacodyl 10 mg rectal suppository 10 mg HI DAILY PRN constipation 08/19/24 Unknown History dulaglutide 3 mg/0.5 mL 3 mg subcut QWEEK 08/19/24 U nknown History subcutaneous pen injector (Trulicity) fenofibrate 160 mg tablet 160 mg PO DAILY 08/19/24 Unk nown History insulin glargine-yfgn 100 unit/mL 48 unit subcut BID 1 Unknown History (3 mL) subcutaneous pen magnesium citrate (Citrate of 150 ml PO PRN PRN consti pation 08/19/24 Unknown History Magnesia oral) magnesium hydroxide 400 mg/5 mL 30 ml PO DAILY PRN con stipation 08/19/24 Unknown History oral suspension (Dulcolax (magnesium hydroxide)) ondansetron 4 mg disintegrating 4 mg PO Q8H PRN PRN Na usea #10 tabs 10/24/24 Unknown Rx tablet carboxymethylcellulose sodium 1 % 1 drp ophthalmic (ey e) TID 01/30/25 Unknown History eye drops (Artificial Tears (carboxymethylcellulose)) citalopram 20 mg tablet 20 mg PO QDAY 01/30/25 Unkno wn History quetiapine 25 mg tablet 25 mg PO QHS 01/30/25 Unknow n History levothyroxine 137 mcg tablet 137 mcg PO QDAY #90 tabs 04/26/25 Unknown Rx (Levoxyl) oxycodone-acetaminophen 5 mg-325 1 tab PO .every4 hour s PRN pain 30 05/23/25 Unknown Rx mg tablet days #100 tabs clindamycin HCl 150 mg capsule 450 mg (3 x 150 mg) PO TID #90 05/26/25 Unknown Rx CAPSULES oxycodone-acetaminophen 5 mg-325 1 tab PO Q6H PRN PRN Pain 3 days 05/26/25 Unknown Rx mg tablet #12 TABLETS Allergy/AdvReac Type Severity Reaction Status Date / Time celecoxib (From Celebrex) Allergy Itching Verified 05/26/25 00:26 ciprofloxacin (From Cipro) Allergy Swelling Verified 05/26/25 00:26 ciprofloxacin HCl (From Allergy Swelling Verified 05/26/25 00:26 Cipro) codeine Allergy Hives Verified 05/26/25 00:26 ibuprofen Allergy Hives Verified 05/26/25 00:26 naproxen Allergy Hives Verified 05/26/25 00:26 Penicillins Allergy Hives Verified 05/26/25 00:26 tramadol HCl (From Ultram) Allergy Hives Verified 05/26/25 00:26 ketorolac (From Toradol) AdvReac Swelling Verified 05/26/25 00:26 Family History Mother Cancer CVA (cerebral vascular accident) Hypertension Heart disease Myocardial infarction Diabetes Father Asthma Surgical History History of cholecystectomy S/P trigger finger release H/O: hysterectomy Hx of section Social History household members: other details: currently living in a NH for therapy for chronic back pain housing: long-term Smoking Status: Former smoker Tobacco: How many years used: 46 how long ago did patient quit smoking: Quit 09/2021, smoked 1 ppd since teen until quit. alcohol intake: never substance use type: other details: History of chronic opiate use. Denies abuse. ROS ROS ED Constitutional Constitutional ED: Denies fever(s) ENT ENT ED: Reports other Details: Right upper lip swelling, no tongue swelling no trouble swallowing. Cardiovascular Cardiovascular: Denies chest pain Respiratory/Chest Respiratory/Chest: Denies cough Gastrointestinal Gastrointestinal: Denies diarrhea or vomiting Musculoskeletal Musculoskeletal: Denies none Integumentary Denies rash or wounds Neurologic Neurologic: Denies weakness EXAM Physical Exam Const Vital Signs: 05/26/25 00:26 05/26/25 00:30 05/26/25 00:34 Temperature 98.8 F 98.8 F Temperature Source Oral Oral Pulse Rate 87 87 Respiratory Rate 20 H 20 H Respiratory Effort Normal Respiratory Pattern Normal Blood Pressure 147/50 H 147/50 H Blood Pressure Mean 82 82 Pulse Ox 95 95 Oxygen Delivery Method Room Air Room Air 05/26/25 01:32 05/26/25 02:00 05/26/25 02:26 Temperature 98.8 F 98.8 F Temperature Source Oral Oral Pulse Rate 76 74 81 Respiratory Rate 16 20 H 16 Respiratory Effort Respiratory Pattern Blood Pressure 146/86 H 130/54 H 125/58 H Blood Pressure Mean 106 79 80 Pulse Ox 98 92 98 Oxygen Delivery Method Room Air Room Air Room Air 05/26/25 04:00 05/26/25 04:08 Temperature 98.8 F Temperature Source Pulse Rate 80 80 Respiratory Rate 16 Respiratory Effort Respiratory Pattern Blood Pressure 139/56 H 139/56 H Blood Pressure Mean 83 83 Pulse Ox 93 93 Oxygen Delivery Method Room Air Positive well nourished and well developed General Appearance ED: well developed HEENT HEENT Narrative: Right upper lip swelling redness area near midline with small scab. Induration across peers tender to palpation. Edentulous. No tongue swelling airway patent. normocephalic Eyes General Eye ED: Yes normal appearance of both eyes Neck full ROM Resp normal respiratory effort and normal air movement Cardio regular rate and regular rhythm GI soft to palpation Extremity normal to inspection and full ROM Neuro oriented x3 Skin no rashes or lesions noted and no wounds MDM MDM MDM Narrative Medical decision making narrative: Interventions / MDM: Differential diagnosis: Upper lip infection, history of diabetes Diagnosis considered but do not suspect: Abscess however needle I&D with no drainage. My EKG interpretation: N/A Imaging independently reviewed and interpreted by myself: N/A External documents reviewed: N/A Test considered but not ordered:N/A ED course: Patient isolated upper lip swelling concerns for infection tender palpation she is a diabetic. Laboratory studies sent multiple allergies howevercan tolerate clindamycin which was ordered.Low-dose morphine for symptom control. Labs were normal white count 9.9. Creatinine 1.76 history of CKD. Procedure note: Written consent obtained for procedure. Risk and benefit discussed. Alcohol prep ofthe skin. 2 cc 1% lidocaine used for local analgesia of the upper lip going through the scab region. 18-gauge needle used going 9:00 11:00 and 12:00 direction there is no exudative drainage. Gentle extraction noted only bloody drainage no exudative drainage. Patient tolerated procedure well. Patient will be continued on clindamycin and short prescription for oxycodone touse as needed medical bed provided. She is given follow-up with plastics for outpatient evaluation with return precautions. All questions were answered. Re-evaluation: stable Disposition discussed with patient/family/significant other: Patient Case discussed with consulting clinician: N/A This note was generated with [employer] dictation software. It may contain incorrectwords, spelling, and punctuation that were not noted in checking the note beforesigning. Lab Data Labs: Laboratory Results - last 24 hr 05/26/25 01:25 WBC 9.9 RBC 4.07 L Hgb 11.3 L Hct 34.9 L MCV 85.7 MCH 27.8 MCHC 32.4 RDW Std Deviation 45.9 H RDW Coeff of Anisa 14.6 Plt Count 349 MPV 9.1 Immature Gran % (Auto) 0.400 Neut % (Auto) 67.7 Lymph % (Auto) 24.6 [place] % (Auto) 6.3 Eos % (Auto) 0.6 Baso % (Auto) 0.4 Absolute Neuts (auto) 6.7 Absolute Lymphs (auto) 2.42 Nucleated RBC % 0 Sodium 132 L Potassium 4.4 Chloride 98 Carbon Dioxide 22.0 Anion Gap 12 BUN 31 H Creatinine 1.76 H Estim Creat Clear Calc 34.98 L Est GFR (MDRD) Non-Af 33 L BUN/Creatinine Ratio 17.5 Glucose 243 H Calcium 8.8 Discharge Plan Triage Chief Complaint: Edema ED Provider: Raúl Alejo Dx/Rx/DC Orders Clinical Impression: Infected lip laceration, History of diabetes mellitus, CKD (chronic kidney disease) stage 3, GFR 30-59 ml/min Instructions: ED Wound Check (Infection) Prescriptions: New clindamycin HCl 150 mg capsule 450 mg PO TID Qty: 90 0RF oxycodone-acetaminophen 5-325 mg tablet 1 tab PO Q6H PRN PRN (Reason: Pain) 3 Days Qty: 12 0RF No Action pantoprazole 40 mg tablet,delayed release (DR/EC) 40 mg PO DAILY ranolazine 500 mg tablet extended release 12 hr 500 mg PO BID Qty: 60 11RF citalopram 20 mg tablet 20 mg PO QDAY Artificial Tears (cmc) 1 % drops 1 drp ophthalmic (eye) TID rizatriptan 10 tablet 10 mg PO PRN Patient Comments: metoprolol succinate 25 mg Tablet Extended Release 24 Hr 25 mg PO DAILY Qty: 30 2RF atorvastatin 40 mg tablet 40 mg PO QHS Qty: 30 2RF quetiapine 25 mg tablet 25 mg PO QHS acetaminophen 325 mg Tablet 650 mg PO Q6H PRN PRN (Reason: Pain 1-10 Or Fever >100.7) Qty: 0 0RF melatonin 3 mg Tablet 3 mg PO QHS PRN PRN (Reason: Insomnia) Qty: 0 0RF loperamide [Anti-Diarrheal (loperamide)] 2 mg capsule 2 mg PO Q6H PRN (Reason: loose stool) magnesium hydroxide [Dulcolax (magnesium hydroxide)] 400 mg/5 mL suspension 30 ml PO DAILY PRN (Reason: constipation) magnesium citrate [Citrate of Magnesia] Solution 150 ml PO PRN PRN (Reason: constipation) bisacodyl 10 mg suppository 10 mg HI DAILY PRN (Reason: constipation) Trulicity 3 mg/0.5 mL pen injector 3 mg subcut QWEEK fenofibrate 160 mg tablet 160 mg PO DAILY Eliquis 5 mg Tablet 5 mg PO BID insulin glargine-yfgn 100 unit/mL (3 mL) Insulin Pen 48 unit subcut BID ondansetron 4 mg tablet,disintegrating 4 mg PO Q8H PRN PRN (Reason: Nausea) Qty: 10 0RF sennosides-docusate sodium [Stool Softener-Stimulant Laxat] 8.6-50 mg Tablet 2 tab PO BID PRN PRN (Reason: Constipation) Qty: 0 0RF nitroglycerin 0.4 mg tablet, sublingual 0.4 mg sublingual Q5M PRN (Reason: chest pain) Rx Instructions: do not exceed 3 doses per episode fluticasone propionate [Aller-Scar] 50 mcg/actuation spray,suspension 2 spray intranasal DAILY Rx Instructions: administer into each nostril promethazine 25 mg tablet 25 mg PO Q6H PRN (Reason: nausea and vomiting) levothyroxine [Levoxyl] 137 mcg tablet 137 mcg PO QDAY Qty: 90 1RF oxycodone-acetaminophen 5-325 mg tablet 1 tab PO .every4 hours PRN (Reason: pain) 30 Days Qty: 100 0RF Primary Care Provider: Lizet Linares Referrals: Lizet Linares MD [Primary Care Provider] - Juan Whatley MD [Med Staff - Active Staff] - 3-5 Days Activity Restrictions/Additional Instructions: Upper lip infection. Blood work normal white count 9.9. You are given clindamycin IV. 18-gauge needle for needle decompression there is no exudative drainage. Taking finish antibiotic prescribed. Pain medicines as needed. Follow- up with Dr. Whatley. If you develop worsening symptoms or fevers, returnto the ED for reevaluation. Print Language: Mozambican Disposition Disposition: Home, Self Care What to do if you have Problems For any increased pain, shortness of breath, bleeding, nausea or vomiting, chestpain, or any unexpected problems, contact your Primary Care Provider. Call [facility] ([phone]) or report tothe closest Emergency Room. Call 911 if necessary. 05/26/25 0589 Cosigner Signature (if applicable): CC: Dr. Lizet Linares MD ~ Signed [facility]05-28-2025 NoteHNO ID: [id number] Author: ?, ?, ? Service: ? Author [...] they see another provider, please update their chart.[facility]05-28-[facility]25 History of Present illness Narrative* Kimmy Jackson - 03/21/2025 12:26 PM EDT Diabetes Outreach Terrance Brar has been identified for clinical review due to having diabetes without a [id number] in the past 1 year. PSS Team [...] please update their chart. documented in this encounterOhio[facility] NotePatient Outreach (4CQ) TERRANCE BRAR ([id number]) 1965 F Date Time Provider Department 03/21/25 DWAYNE LOPEZ 4CQ During your visit today, we recorded the following information about you: Kimmy Jackson 04/12/2025 1:13 PM Signed Diabetes Outreach Terrance Panchito Maykel has been identified for clinical review due [...] blood sugar THREE TIMES DAILY - Insulin [place], Disposable, (BD ULTRA-FINE BEN PEN NEEDLE) 32 [...] [E04.1] 12/07/2008 Routine General Medical Examination at [facility]*12/10/2008 06/03/2015 Benign neoplasm of colon [D12.6] [...] [M65.331] 06/21/2017 Trigger fin (more content not included)...[facility]05-27-2025 NoteHNO ID: [id number] Author: ?, ?, ? Service: ? Author [...] Treatment - End Outreach Navigation Signature: Raisa Reyes March 20, 2025 12:25 [facility]05-27-2025 History of Present illness Narrative* Raisa Epps - 03/20/2025 12:25 PM EDT POPULATION HEALTH NAVIGATION OUTREACH Action/FYI Patient outreach [...] Treatment - End Outreach Navigation Signature: Raisa Reyes March 20, 2025 12:25 PM documented in this encounterOhio[facility]05-27-2025 NotePatient Outreach (NETNAV) TERRANCE BRAR ([id number]) 1965 F Date Time Provider Department 03/20/25 [...] Treatment - End Outreach Navigation Signature: Raisa Reyes March 20, 2025 12:25 PM Allergies As [...] blood sugar THREE TIMES DAILY - Insulin [place], Disposable, (BD ULTRA-FINE BEN PEN NEEDLE) 32 [...] 12/07/2008 Routine General Medical Examination at a [facility]*12/10/2008 06/03/2015 Benign neoplasm of colon [D12.6] 05/15/2014 [...] finger [M65.351] 0 (more content not included)... [facility] History of Present illness Narrative* Elizabeth Jennings RPh - 02/12/2025 11:26 AM EDT Primary Care Pharmacy Panel Management This patient has been identified through Specialty Integration/Value-Based Operations Diabetes Registry Review by the primary care pharmacy team. After review, determined that the patient is not a candidate for pharmacy referral at this time dueto questionable attribution. Elizabeth Jennings RPh documented in this encounterOhiohealth Dublin [facility]04-21-2025 NoteHNO ID: [id number] Author: ELIZABETH JENNINGS RPh Service: ? Author Type: Pharmacist Type: Progress Notes Filed: 02/12/2025 11:27 Note Text: Primary Care Pharmacy Panel Management This patient has been identified through Specialty Integration/Value-Based Operations Diabetes Registry Review by the primary care pharmacy team. After review, determined that the patient is not a candidate for pharmacy referral at this time due to questionable attribution. [facility] NotePatient Outreach (PHMEWO) TERRANCE BRAR ([id number]) 1965 F Date Time Provider Department 02/12/25 ELIZABETH JENNINGS During your visit today, we recorded the [...] blood sugar THREE TIMES DAILY - Insulin [place], Disposable, (BD ULTRA-FINE BEN PEN NEEDLE) 32 [...] [E04.1] 12/07/2008 Routine General Medical Examination at [facility]*12/10/2008 06/03/2015 Benign neoplasm of colon [D12.6] [...] Breast mass, left [N6 (more content not included)...[facility] 02-06-2025 NotePatient Outreach (FAMPWS) TERRANCE BRAR ([id number]) 1965 F Date Time Provider Department 02/06/25 DWAYNE LOPEZ FAMPWS During your visit today, we recorded the [...] for screening mammogram for breast cancer [Z12.31] Order(s):[facility] SCREENING W MIKE [[id number]] Order #: [id number] FUTURE Prescriptions as of 03/09/2025 - dulaglutide [...] blood sugar THREE TIMES DAILY - Insulin [place], Disposable, (BD ULTRA-FINE BEN PEN NEEDLE) 32 [...] [E04.1] 12/07/2008 Routine General Medical Examination at [facility]*12/10/2008 06/03/2015 Benign neoplasm of colon [D12.6] [...] Opioid dependence, continuous (HCC (more content not included)...[facility]04-08-2025 Evaluation note* Diagnosis Onset Date Resolution Status Admit Date Atherosclerotic heart diseas e of [place] coronary artery without angina pectoris acute January 1:52pm Essential hypertension acute Ap ril 2024 1:52pm Hyperlipidemia acute January 30, 2025 1:52pm Chest pain noneactive January 30 1:52pm [facility] Work Phone: 1(438) 159-279404-08-2025 Evaluation note* Diagnosis Onset Date Resolution Status Admit Date Atherosclerotic heart diseas e of [place] coronary artery without angina pectoris acute January 1:52pm Essential hypertension acute Ap ril 2024 1:52pm Hyperlipidemia acute January 30, 2025 1:52pm Chest pain noneactive January 30 1:52pm Infected lip laceration acute A ugust 2024 11:34am [facility] Work Phone: [phone] Radiology Diagnostic study [facility]03-14-2025 NoteHNO ID: [id number] Author: ?, ?, ? Service: ? Author Type: ? Type: Progress Notes Filed: 01/05/2025 13:14 Note Text: Patient is identified through a medication adherence outreach initiative based on pharmacy claims data from: [employer] Medication Adherence Category: [place] Review Attribution Status: Correctly Attributed but Patient in SN[facility] Based [facility]Pro[facility]03-14-2025 History of Present illness Narrative* Syeda Markham - 01/05/2025 1:13 PM EDT Patient is identified through a medication adherence outreach initiative based on pharmacy claims data from: [employer] Medication Adherence Category: [place] Review Attribution Status: Correctly Attributed but Patient in SNF [facility] Value Based Care Pharmacy Team documented in this encounterOhiohealth Dublin [facility]03-14-2025 NotePatient Outreach (PHPOHE) TERRANCE BRAR ([id number]) 1965 F Date Time Provider Department 01/05/25 DWAYNE LOPEZ During your visit today, we recorded the following information about you: Syeda Markham 01/05/2025 1:14 PM Signed Patient is identified through a medication adherence outreach initiative based on pharmacy claims data from: [employer] Medication Adherence Category: [place] Review Attribution Status: Correctly Attributed but Patient in [facility] Sy[facility] Mark[facility] Pharmacy Team Allergies As of Date: 01/05/2025 [...] blood sugar THREE TIMES DAILY - Insulin [place], Disposable, (BD ULTRA-FINE BEN PEN NEEDLE) 32 [...] [E04.1] 12/07/2008 Routine General Medical Examination at [facility]*12/10/2008 06/03/2015 Benign neoplasm of colon [D12.6] [...] Hyponatremia [E87.1] 09/18/2019 Eczema (more content not included)...[facility]02-05-2025 Note HNO ID: [id number] Author: ASHISH BRAY MA Service: ? Author Type: Budget Coordinator Type: Progress Notes Filed: 11/29/2024 14:54 Note [...] Ashish Bray MA November 29, 2024 2:51 [facility]02-05-2025 History of Present illness Narrative* Ashish [...] 29, 2024 2:51 PM documented in this encounterOhio[facility]02-05-2025 NotePatient Outreach (NETNAV) TERRANCE BRAR ([id number]) 1965 F Date Time Provider Department 11/29/24 [...] blood sugar THREE TIMES DAILY - Insulin [place], Disposable, (BD ULTRA-FINE BEN PEN NEEDLE) 32 [...] [E04.1] 12/07/2008 Routine General Medical Examination at [facility]*12/10/2008 06/03/2015 Benign neoplasm of colon [D12.6] [...] [M65.331] 06/21/2017 Trigger finger, (more content not included)...[facility] 09-08-2024 NoteHNO ID: [id number] Author: IRENA WILD, ? Service: ? Author Type: Patient Supervisor Beet End Type: Progress Notes Filed: 09/08/2024 10:26 Note Text: POPULATION HEALTH NAVIGATION OUTREACH Action/I Vinh No PCP Pt is established with Dr. Lopez; PCP updated Reason for Outreach Care Gap/HCC or Scheduling Wellness Visits Care Gaps due: N/A Patient Contacted: Unable or unnecessary to reach patient: PCP field updated Navigation Signature: Irena Wild September 08, 2024 10:25 [facility]11-15-2024 History of Present illness Narrative* Irena Wild - 09/08/2024 10:20 AM EST POPULATION HEALTH NAVIGATION OUTREACH Action/FYI Vinh No PCP Pt is established with Dr. Lopez; PCP updated Reason for Outreach Care Gap/HCC or Scheduling Wellness Visits Care Gaps due: N/A Patient Contacted: Unable or unnecessary to reach patient: PCP field updated Navigation Signature: Irena Wild September 08, 2024 10:25 AM documented in this encounterOhiohealth Dublin [facility]11-15-2024 NotePatient Outreach (NETNAV) TERRANCE BRAR ([id number]) 1965 F Date Time Provider Department 09/08/24 IRENA WILD During your visit today, we recorded the following information about you: Irena Wild 09/08/2024 10:26 AM Addendum POPULATION HEALTH NAVIGATION OUTREACH Action/JOEL Dykes PCP Pt is established with Dr. [...] blood sugar THREE TIMES DAILY - Insulin [place], Disposable, (BD ULTRA-FINE BEN PEN NEEDLE) 32 [...] [E04.1] 12/07/2008 Routine General Medical Examination at [facility]*12/10/2008 06/03/2015 Benign neoplasm of colon [D12.6] [...] or gangr*09/04/2019 Lumbar radiculop (more content not included)...[facility] 04-06-2024 History of Present illness Narrative* [...] the ED visit. Pt currently resides @ [facility] and follows a provider @ the facility Placed pt on attrib list for Vinh Patient seen in ED: Out of Network ED Contact made with Patient: Yes The patient was identified by Name and Date of . Discussed Care with: patient Patient was seen in the Emergency Department (ED) Location: [place] Date: 04/02/24 Reason for ED Visit: CP and blood sugar 44 ED Intervention: cardiac enzymes,EKG per pt Currently experiencing nausea and vomiting but [employer] in to see pt today regarding current symptoms Based on seismology teacher, the following disposition is advised: No symptoms or symptoms present, not severe. Routed to: No Action Needed JUAN Education Provided this Outreach: No Mel Peacock RN April 06, 2024 11:01 AM documented in this encounterOhiohealth Dublin [facility]06-04-2024 History of Present illness Narrative* Mel [...] Out of Network ED ER vs [place] on 03/24/24 Contact made with Patient: No, [...] call. Patient seen in ED: Out of [facility] ED ER vs to [place] 03/24/24 Contact made with Patient: No, left message. Mel Peacock RN March 28, 2024 11:51 AM documented in this encounterOhiohealth Dublin [facility]05-29-2024 Telephone encounter Note * Telephone Encounter - Shonda Valladares LPN - 03/22/2024 2:08 PM EDT Patient scheduled for 04/18/2024 at 1220 with Jesica Mina. Shonda Valladares LPN [facility]05-29-2024 Miscellaneous Notes* Telephone Encounter - Shonda Valladares LPN - 03/22/2024 2:08 PM EDT Patient scheduled for 04/18/2024 at 1220 with Jesica Mina. Shonda Valladares LPN * Telephone Encounter - [...] 21, 2024 5:24 PM documented in this encounterOhiohealth Dublin [facility]05-28-2024 Telephone encounter Note * Telephone Encounter - Dwayne Lopez MD - 03/21/2024 6:38 PM EDT Patient overdue for OV. Please call to schedule appointment in the next 1 month. . 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 Patient is [...] reconcile dispense Ariadna Kyle documented in this encounterOhiohealth Dublin Methodist Hospital04-01-2024 Miscellaneous Notes* Telephone Encounter - Rachel Perea LPN - 01/24/2024 12:59 PM EDT Phoned patient to schedule ER follow up visit. Patient reported she is not able to come in this week due their car is being repaired. Agreed to 02/01/24 at 2pm for 40 min visit. documented in this encounterOhiohealth Dublin Methodist Hospital03-28-2024 Discharge summary Author Ellis Peterson [facility] January 20, 2024 4:19am Note Date/Time January 20, 2024 1:2 2am [facility] Medical Records Department [address] [place] [address] Emergency Department Summary 01/20/24 MR#: [id number] Acct: [id number] Name: TERRANCE BRAR Rep #:[id number] : 1965 58 From: Ellis Peterson MD PCP: Dr. Jarred Lopez MD Status :REG ER Location: ED HPI History of Present Illness Chief Complaint: Chest Pain Narrative Narrative: 58-year-old female presents from [facility] with sharp, stabbing chest pain that [...] chest pain that awoke her from sleep. [facility] Medical History Anxiety and depression [...] for therapy for chronic back pain housing: long-term Smoking Status: Former smoker Tobacco: How many [...] for pain and nausea, I reviewed her long-term paperwork and she has history of chronic pain. She was given 1 oxycodone tablet here and Zofran ODT. As long as her second troponin does not show a large delta troponin, I do feel that she would be able to be discharged back to the residential facility. As her second troponin is 21 and she has a negative delta troponin, I feel she can be discharged to follow-up. Disposition is discharged to the residential facility in stable condition. History & Record [...] % (Auto) 58.1 Lymph % (Auto) 34.1 [place] % (Auto) 5.5 Eos % (Auto) 1.4 [...] 3-5 Days if not improving Disposition Disposition: Nursing Home Facility Discharge Location: [facility] What to do if you have Problems For any increased pain, shortness of breath, bleeding, nausea or vomiting, chestpain, or any unexpected problems, contact your Primary Care Provider. Call [facility] ([phone]) or report to the closest Emergency Room. Call 911 if necessary. 01/20/24 0419 <Electronically signed by Ellis Peterson MD> Cosigner Signature (if applicable): CC: Dr. Jarred Lopez MD ~ Signed [facility] Work Phone: 1(342) 570-494403-14-2024 History of Present illness Narrative* Rachel Perea LPN - 01/06/2024 1:34 PM EDT TRANSITION CARE MANAGEMENT (TCM) INITIAL CONTACT Budget Coordinator Outreach Provider Action/FYI: Initial contact with patient post discharge, spoke to patient. Patient identified by name and . TRANSITION CARE MANAGEMENT INITIAL OUTREACH DOCUMENTATION: 01/06/2024 Date of Outreach: Outreach Attempt 1: Contact Made Date of Discharge 01/05/2024 SUMMARY: -Pt discharged from [facility] on 01/05/24. -Admitted for:1) PE 2)Chest [...] hospitalization: Provider reviewed 01/06/24 documented in this encounterOhiohealth Dublin Methodist Hospital03-14-2024 Miscellaneous Notes* Telephone Encounter - Racehl Perea LPN - 01/06/2024 12:57 PM EDT Phoned patient and agreeable with 01/13/24 at 2pm for Hosp F/U documented in this encounterOhiohealth Dublin Methodist Hospital03-13-2024 Discharge summary Author Ana Rivera [facility] January 05, 2024 11:34am Note Date/Time January 05, 2024 11: 34am [facility] Medical Records Department [address] [place] [address] Transfer to [facility] MR#: [id number] Acct: [id number] Name: TERRANCE BRAR Rep #:[id number] : 1965 58 From: Ana Rivera DO PCP: Dr. Jarred Lopez MD Status :ADM HOMER Certification of patient admission REQUIRED AT TIME OF ADMISSION. I CERTIFY THAT POST-HOSPITAL ECF SERVICES ARE REQUIRED TO BE GIVEN ON AN IN-PATIENT BASIS BECAUSE OF THE ABOVE NAMED PATIENT'S NEED FOR ALF CARE ON A CONTINUING BASIS FOR THE CONDITION(S) FOR WHICH HE/SHE WAS RECEIVING IN-PATIENT HOSPITAL SERVICES PRIOR TO HIS/HER TRANSFER TO THE [facility]. 01/05/24 1134<Electronically signed by Ana Rivera DO> [...] weeks Please Follow Up With: Miriam Cameron [facility], [facility] When: 1 month Discharge Plan Admission Admit [...] 0 0RF Referrals / Follow Up: Jarred Lopze MD [Primary Care Provider] - Miriam Cameron [employer], [facility] [Non-Staff -Ordering Privileges] - Within 1 Month (CAD follow up) Disposition Disposition (needs filled in before D/C Order can be placed): Nursing Home Facility 01/05/24 1134 <Electronically signed by Ana Rivera DO> Cosigner Signature (if applicable): CC: Dr. Chavez Alclaa DO; Dr. Hansa Cast MD; Dr. Jarred Lopez MD ~ [facility] Work Phone: 1(353) 919-910703-13-2024 Discharge summary Author Ana [facility] January 05, 2024 11:32am Note Date/Time January 05, 2024 11: 17am [facility] Medical Records Department [address] [place] [address] Discharge Summary 01/05/24 1116 MR#: [id number] Acct: [id number] Name: TERRANCE BRAR Rep #:[id number] : 1965 58 From: Ana Rivera DO PCP: Dr. 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 She was strongly encouraged to continue incentive [...] skilled services so she was discharged to [facility] after pre-CERT was obtained on 01/05/2024. Again, [...] given w/in hospital stay or rx'd at il?: No Pt receive overlap for 5 days?: [...] [Primary Care Provider] - Miriam Cameron NP, [facility] [Non-Staff -Ordering Privileges] - Within 1 Month (CAD follow up) Disposition Disposition (needs filled in before D/C Order can be placed): Nursing Home Facility Charges/Coding Visit Charges Inpatient E&M: 04965 SNF Disch >30 Min 01/05/24 1132 <Electronically signed by Ana Rivera DO> Cosigner Signature (if applicable): CC: FRANSISCO Cameron; Dr. Jarred Lopez MD; Dr. Ana Rivera DO~ Signed [facility] Work Phone: 1(906) 949-470003-12-2024 Progress note Author Ana Rivera [facility] January 04, 2024 4:59pm Note Date/Time January 04, 2024 5:0 0pm [facility] Medical Records Department [address] [place] [address] Progress Note - Hospitalist 01/04/24 1655 MR#: [id number] Acct: [id number] Name: TERRANCE BRAR Rep #:[id number] : 1965 58 From: Ana Rivera DO PCP: Dr. Jarred Lopez MD Status :ADM HOMER Location: [place] [address] Reason for Visit Reason for Visit: Chest [...] % (Auto) 60.6, Lymph % (Auto) 31.0, [place] % (Auto) 5.1, Eos % (Auto) 1.3, [...] -Plan is discharge back to skilled facility ([facility] once pre-CERT is obtained -Patient is [...] is obtained Charges/Coding Visit Charges Inpatient E&M: 73852 Subs Hosp L2 01/04/24 1659 <Electronically signed by Ana Rivera DO> Cosigner Signature (if applicable): CC: ~ Signed [facility] Work Phone: 1(225) 262-160103-11-2024 Progress note Author Ana Rivera [facility] January 03, 2024 7:27pm Note Date/Time January 03, 2024 7:1 3pm [facility] Medical Records Department [address] [place] [address] Progress Note - Hospitalist 01/03/24 1901 MR#: [id number] Acct: [id number] Name: TERRANCE BRAR Rep #:[id number] : 1965 58 From: Ana Rivera DO PCP: Dr. Jarred Lopez MD Status :ADM HOMER Location: [place] [address] Reason for Visit Reason for Visit: Chest pain Subjective Subjective Ms. Brar is a 58-year-old white female who presented to the emergency department at [facility] from her residential facility for acute onset chest pain with [...] -Plan is discharge back to skilled facility ([facility]) once pre-CERT is obtained -Patient is medically [...] is obtained Charges/Coding Visit Charges Inpatient E&M: 76456 Subs Hosp L2 01/03/241926 <Electronically signed by Ana Rivera DO> Cosigner Signature (if applicable): CC: ~ Signed [facility] Work Phone: 1(801) 507-785403-10-2024 Progress note Author Chavez Alcala [facility] January 02, 2024 4:34pm Note Date/Time January 02, 2024 12: 04pm [facility] Medical Records Department [address] [place] [address] Progress Note - Hospitalist 01/02/24 1204 MR#: [id number] Acct: [id number] Name: TERRANCE BRAR Rep #:[id number] : 1965 58 From: Chavez mayo DO PCP: Dr. Jarred Lopez MD Status :ADM HOMER Location: [place] [address] Reason for Visit Reason for Visit: Diagnoses [...] % (Auto) 66.7, Lymph % (Auto) 26.5, [place] % (Auto) 4.7, Eos % (Auto) 0.8, [...] % (Auto) 60.2, Lymph % (Auto) 31.4, [place] % (Auto) 5.2, Eos % (Auto) 1.1, [...] is a 58-year-old female who presented to [facility] ED on 01/01/2024 from SNF for [...] back pain ? Patient recently hospitalized at [facility] from 11/19-11/24. Was noted to have fairlysevere deconditioning during that hospitalization that apparently was worsened by her chronic back pain. Was discharged to SNF at that time. Has remained at that SNF ([facility]) since then and suspect that she has [...] Cosigner Signature (if applicable): CC: ~ Signed [facility] Work Phone: [phone]) 907-860003-10-2024 History and physical note Author Hansa Cast [facility] January 01, 2024 11:38pm Note Date/Time January 01, 2024 10:3 2pm [facility] Medical Records Department [address] [place] [address] H&P Exam - Hospitalist 01/01/245 MR#: [id number] Acct: [id number] Name: TERRANCE BRAR Rep #:[id number] : 1965 58 From: Hansa Cast MD PCP: Dr. Jarred Lopez MD Status :ADM HOMER Location: [place] [address] HPI - General General Date of Admission: [...] prior opiate abuse who presents to the [facility] ED on 01/01/2024 with history of [...] therapeutic 80 mg subcu regimen x 1. [facility], [facility] Medical History (Updated 01/01/24 @ 23:32 [...] for therapy for chronic back pain housing: long-term Smoking Status: Former smoker Tobacco: How many [...] % (Auto) 66.7, Lymph % (Auto) 26.5, [place] % (Auto) 4.7, Eos % (Auto) 0.8, [...] prior opiate abuse who presents to the [facility] ED on 01/01/2024 with history of [...] Code status. Charges/Coding Visit Charges Inpatient E&M: 76318 Init Hosp L3 01/01/24 0598 <Electronically signed by Hansa Cast MD> Cosigner Signature (if applicable): CC: Dr. Hansa Cast MD; Dr. Jarred Lopez MD~ Signed [facility] Work Phone: 1(568) 194-692603-10-2024 Discharge summary Author Raisa Mc [facility] January 01, 2024 10:58pm Note Date/Time January 01, 2024 6:48 pm [facility] Medical Records Department [address] [place] [address] Emergency Department Summary 01/01/24 MR#: [id number] Acct: [id number] Name: TERRANCE BRAR Rep #:[id number] : 1965 58 From: Raisa Mc MD [...] been ongoing for the past several days. [facility] Medical History Carpal tunnel syndrome [...] for therapy for chronic back pain housing: long-term Smoking Status: Former smoker Tobacco: How many [...] Medical decision making narrative: Patient placed on director of cardiac cath lab. IV line initiated. EKG obtained to evaluatefor [...] % (Auto) 66.7 Lymph % (Auto) 26.5 [place] % (Auto) 4.7 Eos % (Auto) 0.8 [...] Provider] - Disposition Disposition: Acute Care Hospital [facility] What to do if you have Problems For any increased pain, shortness of breath, bleeding, nausea or vomiting, chestpain, or any unexpected problems, contact your Primary Care Provider. Call [facility] ([phone]) or report to the closest Emergency Room. Call 911 if necessary. 01/01/24 7517 <Electronically signed by Raisa Mc MD> Cosigner Signature (if applicable): CC: Dr. Jarred Lopez MD ~ Signed [facility] Work Phone: 1(565) 491-544603-09-2024 Discharge summary Author Raisa Mc [facility] January 01, 2024 10:58pm Note Date/Time January 01, 2024 6:48 pm [facility] Medical Records Department [address] [place] [address] Emergency Department Summary 01/01/24 MR#: [id number] Acct: [id number] Name: TERRANCE BRAR Rep #:[id number] : 1965 58 From: Raisa Mc MD [...] been ongoing for the past several days. [facility] Medical History Carpal tunnel syndrome [...] for therapy for chronic back pain housing: long-term Smoking Status: Former smoker Tobacco: How many [...] Medical decision making narrative: Patient placed on director of cardiac cath lab. IV line initiated. EKG obtained to evaluatefor [...] % (Auto) 66.7 Lymph % (Auto) 26.5 [place] % (Auto) 4.7 Eos % (Auto) 0.8 [...] Provider] - Disposition Disposition: Acute Care Hospital [facility] What to do if you have Problems For any increased pain, shortness of breath, bleeding, nausea or vomiting, chestpain, or any unexpected problems, contact your Primary Care Provider. Call [facility] ([phone]) or report to the closest Emergency Room. Call 911 if necessary. 01/01/24 1239 <Electronically signed by Raisa Mc MD> Cosigner Signature (if applicable): CC: Dr. Jarred Lopez MD ~ Signed [facility] Work Phone: 1([phone]) 208-983011-27-2023 History of Present illness Narrative* Ariadna Kyle - 09/20/2023 8:48 AM EST Terrance Brar is identified through a medication adherence outreach initiative based on pharmacy claims data from [employer] (insurer) for Statin medication(s). Patient is reviewed [...] Left message Ariadna Kyle documented in this encounterOhiohealth Dublin Methodist Hospital10-27-2023 History of Present illness Narrative* Sharonda Sanchez - 08/20/2023 4:22 PM EDT Terrance Brar is identified through a medication adherence outreach initiative based on pharmacy claims data from [employer] (insurer) for Non-insulin DM medication(s) and Statin [...] Both were out of refill Sharonda Sanchez Ems Driver documented in this encounterOhiohealth Dublin Methodist Hospital10-25-2023 Miscellaneous Notes* Telephone Encounter - Mary [...] Provider Department Center 08/26/2023 1:40 PM 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 APRN.CAMERA SUPERVISOR [facility] Please review and refill if appropriate. Thank you. Sharonda Sanchez August 18, 2023 4:11 PM documented in this encounterOhiohealth Dublin Methodist Hospital10-25-2023 History of Present illness Narrative* Irena Hood [...] Gap or Scheduling/Wellness visits Payer: Payor: [employer] AND [employer] / Plan: [employer] HMO / Product Type: HMO / Care [...] 18, 2023 7:58 AM documented in this encounterOhiohealth Dublin Methodist Hospital08-31-2023 Miscellaneous Notes* Telephone Encounter - Anh [...] ER follow up visit. documented in this encounterOhiohealth Dublin Methodist Hospital08-17-2023 Miscellaneous Notes* Telephone Encounter - Miguel Ángel Santoyo LPN - 06/10/2023 1:50 PM EDT Pt notified of Dr Lopez's message. Pt verbalizes understanding. Advises that she will go to [facility] as instructed. Miguel Ángel Santoyo LPN [...] one hour ago. She saysshe was in [facility] on 06/04 with abdominal pain and [...] water/day 8. MEDICATIONS: Says she was in [facility] ER on 06/04 with abdominal pain [...] hemorrhoids, rectal surgery, rectal fissure Protocols used: [id number] documented in this encounterOhiohealth Dublin Methodist Hospital08-13-2023 Discharge summary Author Raúl Alejo [facility] June 06, 2023 10:50pm Note Date/Time June 06, 2023 6: 00pm [facility] Medical Records Department [address] [place] [address] Emergency Department Summary 06/06/23 MR#: [id number] Acct: [id number] Name: TERRANCE BRAR Rep #:[id number] : 1965 57 From: Bronson Retana MD [...] TID PRN nausea and vomiting #21 tabs 12/16/22 [Rx Last Taken Unknown] insulin lispro 100 [...] for therapy for chronic back pain housing: long-term Smoking Status: Former smoker Tobacco: How many [...] (Auto) 50.5 Lymph % (Auto) 44.0 H [place] % (Auto) 3.3 Eos % (Auto) 0.9 [...] 2 patch TOPICAL DAILY Patient Comments: PER ALF MAR PT GETS 2 PATCHES APPLIED TO [...] your Primary Care Provider. Call [facility] ([phone]) or report to the closest Emergency Room. Call 911 if necessary. 06/06/232237 <Electronically signed by Bronson Retana MD> Cosigner Signature (if applicable): CC: Dr. Jarred Lopez MD ~ Signed [facility] Work Phone: [phone]) 349-465408-11-2023 Discharge summary Author Bronson Retana [facility] June 04, 2023 9:29pm Note Date/Time June 04, 2023 5: 36pm [facility] Medical Records Department [address] [place] [address] Emergency Department Summary 06/04/23 MR#: [id number] Acct: [id number] Name: TERRANCE BRAR Rep #:[id number] : 1965 57 From: Bronson Retana MD [...] for therapy for chronic back pain housing: long-term Smoking Status: Former smoker Tobacco: How many [...] % (Auto) 55.4 Lymph % (Auto) 39.6 [place] % (Auto) 3.2 Eos % (Auto) 0.5 [...] Clarity Clear Urine pH 6.5 Ur Specific [place] 1.010 Urine Protein 30 H Urine Glucose [...] 2 patch TOPICAL DAILY Patient Comments: PER ALF MAR PT GETS 2 PATCHES APPLIED TO [...] problems, contact your Primary Care Provider. Call [facility] Registry ([phone]) or report to the closest Emergency Room. [...] cc: Dr. Jarred Lopez MD ~* Signed [facility] Work Phone: [phone]) 185-511608-11-2023 Hospital Discharge instructions Additional Instructions No specific [...] 3 to 5 days. Return if feeling worse.[facility] Work Phone: [phone]) 300-733407-31-2023 Miscellaneous Notes* Telephone Encounter - Lubna Montgomery [...] Department Center 07/09/2023 1:00 PM Jesica Mina APRN.CAMERA SUPERVISOR [facility] Please review and refill if appropriate. Thank you. Debra Greer May 20, 2023 2:17 PM documented in this encounterOhiohealth Dublin Methodist Hospital07-27-2023 History of Present illness Narrative* Debra Greer - 05/20/2023 2:14 PM EDT Terrance Brar is identified through a medication adherence outreach initiative based on pharmacy claims data from [employer] (insurer) for Non-insulin DM medication(s) and Statin [...] outcome source and status) - No refills christin Greer documented in this encounterOhiohealth Dublin Methodist Hospital07-11-2023 History of Present illness Narrative* Ariadna Kyle - 05/04/2023 2:13 PM EDT Terrance Brar is identified through a medication adherence outreach initiative based on pharmacy claims data from [employer] (insurer) for Non-insulin DM medication(s) and Statin [...] no answer Ariadna Kyle documented in this encounterOhiohealth Dublin Methodist Hospital06-30-2023 History of Present illness Narrative* Vernon Degroot APRN.CAMERA SUPERVISOR - 04/23/2023 2:50 PM EDT Images from [...] diabetes mellitus with neurological manifestations ([facility]) 02/27/2016 PAST SURGICAL HISTORY Procedure Laterality Date [...] finger releases INCISE FINGER TENDON SHEATH Left [id number] Left index and middle trigger finger releases [...] test blood sugar THREE TIMES DAILY Insulin [place], Disposable, (BD ULTRA-FINE BEN PEN NEEDLE) 32 [...] and atraumatic. Nose: Nose normal. Mouth/Throat: Lips: [place]. Mouth: Mucous membranes are moist. Pharynx: Uvula [...] CLINDAMYCIN HCL 300 MG CAPSULE Vernon Degroot APRN.CAMERA SUPERVISOR documented in this encounterOhiohealth Dublin Methodist Hospital06-15-2023 History of Present illness Narrative* Shital Menezes - 04/08/2023 1:51 PM EDT POPULATION HEALTH NAVIGATION OUTREACH Action/FYI Pt scheduled Patient Identified by Name and : YES, via phone Outreach Outcome/Action Spoke to patient / parent / legal guardian: Patient scheduled Did you use a PCP flex slot to schedule this appointment? No Reason for Outreach Care Gap or Scheduling/Wellness visits Payer: Payor: [employer] / Plan: [employer] HMO / Product Type: HMO / Care [...] 08, 2023 1:51 PM documented in this encounterOhiohealth Dublin Methodist Hospital06-14-2023 Miscellaneous Notes* Telephone Encounter - Shonda [...] office. Mariama Sandoval MA documented in this encounterOhiohealth Dublin Methodist Hospital06-14-2023 History of Present illness Narrative* Dwayne Lopez MD - 04/07/2023 1:18 PM EDT Chief Complaint Patient presents with: SNF d/c follow up HPI Terrance Brar is a 57 year old female who presents here today for Above Complaints.. Patient had been a resident of [facility] since 03/2022 with discharge on 03/25. [...] for handicap placard. Patient also evaluated at [facility] ED on 03/28 for constipation for [...] test blood sugar THREE TIMES DAILY Insulin [place], Disposable, (BD ULTRA-FINE BEN PEN NEEDLE) 32 [...] which included preparing to see the patient, [id number] patient care, completing clinical documentation, obtaining and/or reviewing separately obtained history, performing a medically appropriate examination, counseling and educating the pat ient/family/caregiver, and ordering medications, tests, or procedures. Dwayne Lopez MD documented in this encounterOhiohealth Dublin Methodist Hospital05-31-2023 History of Present illness Narrative* Dwayne Lopez MD - 03/24/2023 10:23 AM EDT Chief Complaint Patient presents with: Establish Care HPI Jenniferkimberly Brar is a 57 year old female who presents here today for Above Complaints. Accompanied today by her Shan. Patient has been a resident of [facility] since 03/2022 and is planning on being discharged tomorrow. States that she was admitted initially for weakness and inability to walk. This was attributed to her uncontrolled DM. Required 11 months of PT. I have not received any records from [facility] as of yet. Patient has paperwork [...] test blood sugar THREE TIMES DAILY Insulin [place], Disposable, (BD ULTRA-FINE BEN PEN NEEDLE) 32 [...] ago. Dwayne Lopez MD documented in this encounterOhiohealth Dublin Methodist Hospital05-02-2023 History of Present illness Narrative* Sharonda Sanchez - 02/23/2023 2:40 PM EDT Terrance Brar is identified through a medication adherence outreach initiative based on pharmacy claims data from [employer] (insurer) for Non-insulin DM medication(s) and Statin [...] and per call to patient/caregiver Sharonda Sanchez Ems Driver documented in this encounterOhiohealth Dublin Methodist Hospital03-20-2023 History of Present illness Narrative* Aquilino [...] Terrance Brar is identified through data from [employer] (insurer) as a potential candidate for statin [...] no answer BERRY Jha * Donnell Burr [facility] - 01/01/2023 12:29 PM EST Approving student documentation and outreach below. Donnell Burr RPh PharmD BCACP documented in this encounterOhiohealth Dublin Methodist Hospital03-16-[address] Retana [facility] January 07, 2023 4:15pm Note Date/Time January 07, 2023 4:0 7pm [facility] Medical Records Department [address] [place] [address] Emergency Department Summary 01/07/23 MR#: [id number] Acct: [id number] Name: TERRANCE BRAR Rep #:[id number] : 1965 57 From: Bronson Retana MD [...] dysuria or hematuria. She was written for [place] for pain they told her she could not take it because she has a codeine allergy so she has not been on pain meds and needs pain relief. Otherwise her symptoms have not changed. Prior similar symptoms: Yes Recent Illness/Hospitalization: No [facility] Medical History Carpal tunnel syndrome [...] for therapy for chronic back pain housing: long-term Smoking Status: Former smoker Tobacco: How many [...] tract infection. A prescription was written for Edgewater which they would not let her take at the long-term. She can take Percocet. She will get [...] 2 patch TOPICAL DAILY Label Comments: PER ALF MAR PT GETS 2 PATCHES APPLIED TO [...] not improving Activity Restrictions/Additional Instructions: Discard the Edgewater prescription. Patient has used Percocet before in the past and should be fine with this for pain. Follow-up with your doctor if not improving. Disposition Disposition: Home, Self Care What to do if you have Problems For any increased pain, shortness of breath, bleeding, nausea or vomiting, chestpain, or any unexpected problems, contact your Primary Care Provider. Call [facility] ([phone]) or report to the closest Emergency Room. Call 911 if necessary. 01/07/23 1615 <Electronically signed by Bronson Retana MD> Cosigner Signature (if applicable): CC: Dr. Lizet Linares MD ~ Signed [facility] Work Phone: 1(397) 532-561507-02-2022 Evaluation note* Diagnosis Onset Date Resolution Status Chest pain acute Chronic renal failure, stage 3a acute Elevated troponin acute History of diabetes mellitus acute Hyperlipidemia acute Normochromic normocytic anemia acute Obesity (BMI 35.0-39.9 without comorbidity) acute Opiate abuse, continuous acu te Chronic back pain chronic Depressive disorder chronic [facility] Work Phone: 1(184) 628-558406-10-2022 History of Present illness Narrative* Shital Patel MA - 04/03/2022 12:54 PM EDT POPULATION HEALTH NAVIGATION OUTREACH Action/FYI Patient is on HCC list for below gaps and needs appt to address : 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
E11.69 - Hyperlipidemia associated with type 2 diabetes mellitus (HCC) - [id number] Last Billed 12/26/2019
E21.3 - Hyperparathyroidism (HCC) - [id number] Last Billed 09/18/2019
patient also due for [...] HCC or suspected condition Payer: Payor: [employer] AND [employer] / Plan: [employer] HMO / Product [...] 03, 2022 12:55 [facility] of Past illness Narrative* Problem [...] this encounter (statuses as of 04/03/2022) [facility] History of Past illness Narrative* Problem [...] this encounter (statuses as of 01/21/2023) [facility] of Past illness Narrative* Problem [...] 12-31, 37% in 03-02, 42% in 07-03 EDMNUDO in 03-[address] Mckeon: no details [...] this encounter (statuses as of 02/24/2023) [facility] of Past illness Narrative* Problem [...] this encounter (statuses as of 03/24/2023) [facility] of Past illness Narrative* Problem [...] this encounter (statuses as of 04/07/2023) [facility] of Past illness Narrative* Problem [...] this encounter (statuses as of 04/08/2023) [facility] of [facility] illness Narrative* Problem [...] this encounter (statuses as of 04/12/2023) [facility] of Past illness Narrative* Problem [...] this encounter (statuses as of 04/23/2023) [facility] of Past illness Narrative* Problem [...] this encounter (statuses as of 05/05/2023) [facility] of [facility] illness Narrative* Problem [...] this encounter (statuses as of 05/20/2023) [facility] illness Narrative* Problem [...] this encounter (statuses as of 05/24/2023) [facility] illness Narrative* Problem [...] this encounter (statuses as of 06/10/2023) [facility] of [facility] illness Narrative* Problem [...] this encounter (statuses as of 06/30/2023) [facility] illness Narrative* Problem [...] this encounter (statuses as of 08/18/2023) [facility] Narrative* Problem [...] this encounter (statuses as of 08/19/2023) [facility] illness Narrative* Problem [...] this encounter (statuses as of 08/20/2023) [facility] illness Narrative* Problem [...] this encounter (statuses as of 09/20/2023) [facility] Narrative* Problem [...] of this encounter (statuses as of 01/06/2024) [facility] Narrative* Problem [...] of this encounter (statuses as of 01/25/2024) [facility] illness Narrative* Problem [...] of this encounter (statuses as of 02/07/2024) [facility] Narrative* Problem [...] of this encounter (statuses as of 02/10/2024) [facility] Raúl Alejo [facility] Note Date/Time May 26, 2025 5:4 4am [facility] Medical Records Department [address] [place] [address] Emergency Department Summary 05/26/25 MR#: [id number] Acct: [id number] Name: MAYKELTERRANCE Rep #:[id number] : 1965 59 From: Raúl Brooks PCP: Dr. Lizet Linares MD Status:R EG ER Location: ED HPI History of Present Illness Chief Complaint: Edema Informant: patient Narrative Narrative: Presents by EMS from [facility] progressive swelling right upper lip for last 4 days. No fevers or chills. No trauma. History of diabetes. Denies any drainage. Edentulous upper teeth denies wearing dentures. Prior similar symptoms: No PFSH PFSH Medical History MRSA (methicillin resistant staph aureus) culture positive Cataract (lens) fragments in eye following cataract surgery Anxiety and depression Diabetes mellitus, type 2 Pulmonary emboli Parathyroid disease History of left heart catheterization (LHC) (~05/21/22) CKD (chronic kidney disease) stage 3, GFR 30-59 ml/min Essential hypertension Orthostatic hypotension Hypothyroidism Chronic back pain Obesity (BMI 35.0-39.9 without comorbidity) Normochromic normocytic anemia Hyperlipidemia Former smoker Opiate abuse, continuous Intervertebral disc disorder with radiculopathy of lumbar region Carpal tunnel syndrome Kidney stones Thyroid disease Migraines Stomach ulcer HTN (hypertension) Home Medications ?Medication ?Instructions ?Recorded ?Last Taken ?Type rizatriptan 10 mg tablet 10 mg PO PRN Migraine Sympto ms 12/27/17 04/03/24 History atorvastatin 40 mg tablet 40 mg PO QHS #30 tabs 06/19/24 Rx metoprolol succinate 25 mg 25 mg PO DAILY #30 tabs 06/18/24 Rx tablet,extended release 24 hr pantoprazole 40 mg tablet,delayed 40 mg PO DAILY 06/1206/19/24 History release ranolazine 500 mg tablet,extended 500 mg PO BID #60 ta bs 06/12/22 06/19/24 Rx release,12 hr acetaminophen 325 mg tablet 650 mg (2 x 325 mg) PO Q6H PRN PRN 11/24/23 06/16/24 Rx Pain 1-10 Or Fever >100.7 #0 tabs melatonin 3 mg tablet 3 mg PO QHS PRN PRN Insomnia #0 11/24/23 06/19/24 Rx tabs sennosides 8.6 mg-docusate sodium 2 tab PO BID PRN PRN Constipation 01/05/24 06/19/24 Rx 50 mg tablet (Stool #0 tabs Softener-Stimulant Laxative) loperamide 2 mg capsule 2 mg PO Q6H PRN loose stool 04/02/24 03/08/24 History (Anti-Diarrheal (loperamide)) fluticasone propionate 50 2 spray intranasal DAILY 06/19/24 History mcg/actuation nasal spray,suspension (Aller-Scar) nitroglycerin 0.4 mg sublingual 0.4 mg sublingual Q5M PRN chest 06/20/24 Unknown History tablet pain promethazine 25 mg tablet 25 mg PO Q6H PRN nausea and 06/20/24 Unknown History vomiting apixaban 5 mg tablet (Eliquis) 5 mg PO BID 08/19/24 Un known History bisacodyl 10 mg rectal suppository 10 mg HI DAILY PRN constipation 08/19/24 Unknown History dulaglutide 3 mg/0.5 mL 3 mg subcut QWEEK 08/19/24 U nknown History subcutaneous pen injector (Trulicity) fenofibrate 160 mg tablet 160 mg PO DAILY 08/19/24 Unk nown History insulin glargine-yfgn 100 unit/mL 48 unit subcut BID 1 Unknown History (3 mL) subcutaneous pen magnesium citrate (Citrate of 150 ml PO PRN PRN consti pation 08/19/24 Unknown History Magnesia oral) magnesium hydroxide 400 mg/5 mL 30 ml PO DAILY PRN con stipation 08/19/24 Unknown History oral suspension (Dulcolax (magnesium hydroxide)) ondansetron 4 mg disintegrating 4 mg PO Q8H PRN PRN Na usea #10 tabs 10/24/24 Unknown Rx tablet carboxymethylcellulose sodium 1 % 1 drp ophthalmic (ey e) TID 01/30/25 Unknown History eye drops (Artificial Tears (carboxymethylcellulose)) citalopram 20 mg tablet 20 mg PO QDAY 01/30/25 Unkno wn History quetiapine 25 mg tablet 25 mg PO QHS 01/30/25 Unknow n History levothyroxine 137 mcg tablet 137 mcg PO QDAY #90 tabs 04/26/25 Unknown Rx (Levoxyl) oxycodone-acetaminophen 5 mg-325 1 tab PO .every4 hour s PRN pain 30 05/23/25 Unknown Rx mg tablet days #100 tabs clindamycin HCl 150 mg capsule 450 mg (3 x 150 mg) PO TID #90 05/26/25 Unknown Rx CAPSULES oxycodone-acetaminophen 5 mg-325 1 tab PO Q6H PRN PRN Pain 3 days 05/26/25 Unknown Rx mg tablet #12 TABLETS Allergy/AdvReac Type Severity Reaction Status Date / Time celecoxib (From Celebrex) Allergy Itching Verified 05/26/25 00:26 ciprofloxacin (From Cipro) Allergy Swelling Verified 05/26/25 00:26 ciprofloxacin HCl (From Allergy Swelling Verified 05/26/25 00:26 Cipro) codeine Allergy Hives Verified 05/26/25 00:26 ibuprofen Allergy Hives Verified 05/26/25 00:26 naproxen Allergy Hives Verified 05/26/25 00:26 Penicillins Allergy Hives Verified 05/26/25 00:26 tramadol HCl (From Ultram) Allergy Hives Verified 05/26/25 00:26 ketorolac (From Toradol) AdvReac Swelling Verified 05/26/25 00:26 Family History Mother Cancer CVA (cerebral vascular accident) Hypertension Heart disease Myocardial infarction Diabetes Father Asthma Surgical History History of cholecystectomy S/P trigger finger release H/O: hysterectomy Hx of section Social History household members: other details: currently living in a NH for therapy for chronic back pain housing: long-term Smoking Status: Former smoker Tobacco: How many years used: 46 how long ago did patient quit smoking: Quit 09/2021, smoked 1 ppd since teen until quit. alcohol intake: never substance use type: other details: History of chronic opiate use. Denies abuse. ROS ROS ED Constitutional Constitutional ED: Denies fever(s) ENT ENT ED: Reports other Details: Right upper lip swelling, no tongue swelling no trouble swallowing. Cardiovascular Cardiovascular: Denies chest pain Respiratory/Chest Respiratory/Chest: Denies cough Gastrointestinal Gastrointestinal: Denies diarrhea or vomiting Musculoskeletal Musculoskeletal: Denies none Integumentary Denies rash or wounds Neurologic Neurologic: Denies weakness EXAM Physical Exam Const Vital Signs: 05/26/25 00:26 05/26/25 00:30 05/26/25 00:34 Temperature 98.8 F 98.8 F Temperature Source Oral Oral Pulse Rate 87 87 Respiratory Rate 20 H 20 H Respiratory Effort Normal Respiratory Pattern Normal Blood Pressure 147/50 H 147/50 H Blood Pressure Mean 82 82 Pulse Ox 95 95 Oxygen Delivery Method Room Air Room Air 05/26/25 01:32 05/26/25 02:00 05/26/25 02:26 Temperature 98.8 F 98.8 F Temperature Source Oral Oral Pulse Rate 76 74 81 Respiratory Rate 16 20 H 16 Respiratory Effort Respiratory Pattern Blood Pressure 146/86 H 130/54 H 125/58 H Blood Pressure Mean 106 79 80 Pulse Ox 98 92 98 Oxygen Delivery Method Room Air Room Air Room Air 05/26/25 04:00 05/26/25 04:08 Temperature 98.8 F Temperature Source Pulse Rate 80 80 Respiratory Rate 16 Respiratory Effort Respiratory Pattern Blood Pressure 139/56 H 139/56 H Blood Pressure Mean 83 83 Pulse Ox 93 93 Oxygen Delivery Method Room Air Positive well nourished and well developed General Appearance ED: well developed HEENT HEENT Narrative: Right upper lip swelling redness area near midline with small scab. Induration across peers tender to palpation. Edentulous. No tongue swelling airway patent. normocephalic Eyes General Eye ED: Yes normal appearance of both eyes Neck full ROM Resp normal respiratory effort and normal air movement Cardio regular rate and regular rhythm GI soft to palpation Extremity normal to inspection and full ROM Neuro oriented x3 Skin no rashes or lesions noted and no wounds MDM MDM MDM Narrative Medical decision making narrative: Interventions / MDM: Differential diagnosis: Upper lip infection, history of diabetes Diagnosis considered but do not suspect: Abscess however needle I&D with no drainage. My EKG interpretation: N/A Imaging independently reviewed and interpreted by myself: N/A External documents reviewed: N/A Test considered but not ordered:N/A ED course: Patient isolated upper lip swelling concerns for infection tender palpation she is a diabetic. Laboratory studies sent multiple allergies howevercan tolerate clindamycin which was ordered. Low-dose morphine for symptom control. Labs were normal white count 9.9. Creatinine 1.76 history of CKD. Procedure note: Written consent obtained for procedure. Risk and benefit discussed. Alcohol prep of the skin. 2 cc 1% lidocaine used for local analgesia of the upper lip going through the scab region. 18-gauge needle used going 9:00 11:00 and 12:00 direction there is no exudative drainage. Gentle extraction noted only bloody drainage no exudative drainage. Patient tolerated procedure well. Patient will be continued on clindamycin and short prescription for oxycodone touse as needed medical bed provided. She is given follow-up with plastics for outpatient evaluation with return precautions. All questions were answered. Re-evaluation: stable Disposition discussed with patient/family/significant other: Patient Case discussed with consulting clinician: N/A This note was generated with [employer] dictation software. It may contain incorrectwords, spelling, and punctuation that were not noted in checking the note beforesigning. Lab Data Labs: Laboratory Results - last 24 hr 05/26/25 01:25 WBC 9.9 RBC 4.07 L Hgb 11.3 L Hct 34.9 L MCV 85.7 MCH 27.8 MCHC 32.4 RDW Std Deviation 45.9 H RDW Coeff of Anisa 14.6 Plt Count 349 MPV 9.1 Immature Gran % (Auto) 0.400 Neut % (Auto) 67.7 Lymph % (Auto) 24.6 [place] % (Auto) 6.3 Eos % (Auto) 0.6 Baso % (Auto) 0.4 Absolute Neuts (auto) 6.7 Absolute Lymphs (auto) 2.42 Nucleated RBC % 0 Sodium 132 L Potassium 4.4 Chloride 98 Carbon Dioxide 22.0 Anion Gap 12 BUN 31 H Creatinine 1.76 H Estim Creat Clear Calc 34.98 L Est GFR (MDRD) Non-Af 33 L BUN/Creatinine Ratio 17.5 Glucose 243 H Calcium 8.8 Discharge Plan Triage Chief Complaint: Edema ED Provider: Raúl Alejo Dx/Rx/DC Orders Clinical Impression: Infected lip laceration, History of diabetes mellitus, CKD (chronic kidney disease) stage 3, GFR 30-59 ml/min Instructions: ED Wound Check (Infection) Prescriptions: New clindamycin HCl 150 mg capsule 450 mg PO TID Qty: 90 0RF oxycodone-acetaminophen 5-325 mg tablet 1 tab PO Q6H PRN PRN (Reason: Pain) 3 Days Qty: 12 0RF No Action pantoprazole 40 mg tablet,delayed release (DR/EC) 40 mg PO DAILY ranolazine 500 mg tablet extended release 12 hr 500 mg PO BID Qty: 60 11RF citalopram 20 mg tablet 20 mg PO QDAY Artificial Tears (cmc) 1 % drops 1 drp ophthalmic (eye) TID rizatriptan 10 tablet 10 mg PO PRN Patient Comments: metoprolol succinate 25 mg Tablet Extended Release 24 Hr 25 mg PO DAILY Qty: 30 2RF atorvastatin 40 mg tablet 40 mg PO QHS Qty: 30 2RF quetiapine 25 mg tablet 25 mg PO QHS acetaminophen 325 mg Tablet 650 mg PO Q6H PRN PRN (Reason: Pain 1-10 Or Fever >100.7) Qty: 0 0RF melatonin 3 mg Tablet 3 mg PO QHS PRN PRN (Reason: Insomnia) Qty: 0 0RF loperamide [Anti-Diarrheal (loperamide)] 2 mg capsule 2 mg PO Q6H PRN (Reason: loose stool) magnesium hydroxide [Dulcolax (magnesium hydroxide)] 400 mg/5 mL suspension 30 ml PO DAILY PRN (Reason: constipation) magnesium citrate [Citrate of Magnesia] Solution 150 ml PO PRN PRN (Reason: constipation) bisacodyl 10 mg suppository 10 mg HI DAILY PRN (Reason: constipation) Trulicity 3 mg/0.5 mL pen injector 3 mg subcut QWEEK fenofibrate 160 mg tablet 160 mg PO DAILY Eliquis 5 mg Tablet 5 mg PO BID insulin glargine-yfgn 100 unit/mL (3 mL) Insulin Pen 48 unit subcut BID ondansetron 4 mg tablet,disintegrating 4 mg PO Q8H PRN PRN (Reason: Nausea) Qty: 10 0RF sennosides-docusate sodium [Stool Softener-Stimulant Laxat] 8.6-50 mg Tablet 2 tab PO BID PRN PRN (Reason: Constipation) Qty: 0 0RF nitroglycerin 0.4 mg tablet, sublingual 0.4 mg sublingual Q5M PRN (Reason: chest pain) Rx Instructions: do not exceed 3 doses per episode fluticasone propionate [Aller-Scar] 50 mcg/actuation spray,suspension 2 spray intranasal DAILY Rx Instructions: administer into each nostril promethazine 25 mg tablet 25 mg PO Q6H PRN (Reason: nausea and vomiting) levothyroxine [Levoxyl] 137 mcg tablet 137 mcg PO QDAY Qty: 90 1RF oxycodone-acetaminophen 5-325 mg tablet 1 tab PO .every4 hours PRN (Reason: pain) 30 Days Qty: 100 0RF Primary Care Provider: Lizet Linares Referrals: Lizet Linares MD [Primary Care Provider] - Juan Whatley MD [Med Staff - Active Staff] - 3-5 Days Activity Restrictions/Additional Instructions: Upper lip infection. Blood work normal white count 9.9. You are given clindamycin IV. 18-gauge needle for needle decompression there is no exudative drainage. Taking finish antibiotic prescribed. Pain medicines as needed. Follow-up with Dr. Whatley. If you develop worsening symptoms or fevers, return to the ED for reevaluation. Print Language: Mozambican Disposition Disposition: Home, Self Care What to do if you have Problems For any increased pain, shortness of breath, bleeding, nausea or vomiting, chestpain, or any unexpected problems, contact your Primary Care Provider. Call [facility] ([phone]) or report to the closest Emergency Room. Call 911 if necessary. 05/26/25 0544 <Electronically signed by Raúl Brooks> Cosigner Signature (if applicable): CC: Dr. Lizet Linares MD ~ Signed [facility] Work Phone: Evaluation noteNo assessment information available [facility] Work Phone: Evaluation note* Diagnosis Onset Date Resolution Status 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 [facility] Work Phone: Evaluation note* Diagnosis Onset Date Resolution Status 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 HTN (hypertension) chronic Pure hypercholesterolemia ch ronic [facility] Work Phone: Evaluation note* Diagnosis Onset Date Resolution Status Chest pain resolved [facility] Work Phone: Evaluation note* Diagnosis Onset Date Resolution Status Chest pain resolved Diabetes acute Nonspecific chest pain acute Renal insufficiency acute [facility] Work Phone: evaluation note* Diagnosis Onset Date Resolution Status Chest pain resolved Diabetes acute Hypothyroidism acute Nonspecific chest pain acute Renal insufficiency acute [facility] Work Phone: evaluation note* Diagnosis Onset Date Resolution Status Hyperlipidemia acute Chest pain resolved Hypothyroidism acute Nonspecific chest pain resol shirley Atherosclerotic heart diseas e of [place] coronary artery without angina pectoris acute Chest pressure acute Dizziness acute Dyspnea acute Essential hypertension acute Hyperlipidemia acute [facility] Work Phone: evaluation note* Diagnosis Onset Date Resolution Status Hypothyroidism acute Nonspecific chest pain resol shirley Atherosclerotic heart diseas e of [place] coronary artery without angina pectoris acute Chest pressure acute Dizziness acute Dyspnea acute Essential hypertension acute Hyperlipidemia acute [facility] Work Phone: evaluation note* Diagnosis Onset Date Resolution Status Atherosclerotic heart diseas e of [place] coronary artery without angina pectoris acute Chest pressure acute Dizziness acute Dyspnea acute Essential hypertension acute Hyperlipidemia acute Atherosclerotic heart diseas e of [place] coronary artery without angina pectoris acute Bilateral lower extremity edema acute Essential hypertension acute Hyperlipidemia acute [facility] Work Phone: Evaluation note* Diagnosis Onset Date Resolution Status Atherosclerotic heart diseas e of [place] coronary artery without angina pectoris acute Bilateral lower extremity edema acute Essential hypertension acute Hyperlipidemia acute [facility] Work Phone: evaluation note* Diagnosis Globus sensation- Primary Gastrointestinal malfunction arising from mental factors Gastroesophageal reflux disease, unspecified whether esophagitis present [facility] Diagnosis Onset Date Resolution Status Atherosclerotic heart diseas e of [place] coronary artery without angina pectoris acute Bilateral lower extremity edema acute Essential hypertension acute Hyperlipidemia acute Palpitations acute [facility] Work Phone: Evaluation note* Diagnosis Generalized [...] dependence, continuous [facility] Diagnosis Toothache- Primary Unspecified disorder of the teeth and supporting structures documented in this encounter [facility] note* Diagnosis Onset Date Resolution Status Acute leg pain acute Diabetes mellitus with hyperglycemia acute Diarrhea acute Nausea acute [facility] Work Phone: Evaluation note* Diagnosis Onset Date Resolution Status Diarrhea acute Acute leg pain resolved Diabetes mellitus with hyperglycemia resolved Nausea resolved Pulmonary emboli acute [facility] Work Phone: Evaluation note* Diagnosis Onset Date Resolution Status Diarrhea acute Acute leg pain resolved Diabetes mellitus with hyperglycemia resolved Nausea resolved Chest pressure acute Pulmonary emboli acute [facility] Work Phone: Evaluation note* Diagnosis Onset Date Resolution Status Diarrhea acute Acute leg pain resolved Diabetes mellitus with hyperglycemia resolved Nausea resolved Chest pressure acute [facility] Work Phone: Evaluation note* Diagnosis Encounter for screening mammogram for breast cancer documented in this encounter [facility] note* Diagnosis Pre-operative examination- Primary Preoperative examination, [...] for breast cancer [facility] Author John Shaw [facility] November 19, 2023 11:02am Note Date/Time November 19, 2023 1 0:38am [facility] Medical Records Department [address] [place] [id number] H&P Exam - Hospitalist 11/19/23 [facility] MR#: [id number] Acct: [id number] Name: TERRANCE BRAR Rep #:[id number] : 1965 58 From: John Shaw MD PCP: Dr. Jarred Lopez MD Status :ADM HOMER Location: MS3 [id number] HPI - General General Date of Admission: [...] admittedto regular nursing floor for further management [facility], [facility] Medical History Carpal tunnel syndrome Chronic [...] for therapy for chronic back pain housing: long-term Smoking Status: Former smoker Tobacco: How many [...] % (Auto) 59.6, Lymph % (Auto) 35.7, [place]% (Auto) 3.3, Eos % (Auto) 0.4, Baso [...] Sl. Cloudy, Urine pH 6.0, Ur Specific [place] 1.015, Urine Protein 30 H, Urine Glucose [...] Requested for PT OT eval and social media specialist to assist with discharge planning 12. DVT [...] documentation, 75Minutes Charges/Coding Visit Charges Inpatient E&M: 08681 Init Hosp L3 Procedures Hospitalists Procedures: 49495 Advncd Care Plan addl 30 Min 11/19/23 1102 <Electronically signed by John Shaw MD> Cosigner Signature (if applicable): CC: Dr. Jarred Lopez MD; Dr. John Shaw MD~ Signed [facility] Work Phone: History and physical note Author Chavez Alcala [facility] Note Date/Time May 28, 2025 12: 16pm [facility] Medical Records Department [address] [place] [address] H&P Exam - Hospitalist 05/28/25 1134 MR#: [id number] Acct: [id number] Name: TERRANCE BRAR Rep #:[id number] : 1965 59 From: Chavez mayo DO PCP: Dr. Lizet Linares MD Status:A DM IN [place] [facility] [id number] HPI - General General Date of Admission: 05/28/25 Date of Service: 05/28/25 Chief Complaint: Worsening upper lip wound with surrounding cellulitis HPI Narrative TERRANCE BRAR, is a 59 F who presented to [facility] ED on 05/28/25 with worsening upper lip wound with surrounding cellulitis. Patient lives at [facility]. She initially came to the ED on with upper lip swelling. She attributed this to a spider bite that happenedon . She had significant swelling noted on Wednesday morning. In the ED they attempted to aspirate it but there was no drainage noted. She was given a dose of IV clindamycin (penicillin allergy) in the ED and then discharged back to her facility on p.o. clindamycin. She had no improvement with the oral antibiotics over the weekend so she came back in today for further evaluation. In the ED she was noted to have continued right upper lip swelling with surrounding cellulitis in the skin right above the lip. She noted considerable pain in the area. She was normotensive, afebrile and otherwise hemodynamically stable and WBC count was normal. However, given worsening swelling with cellulitis and suspected failed outpatient antibiotics, hospitalist was contacted for admission. I saw the patient at bedside in the ED. Patient was sitting back fairly comfortably in bed, conversing normally, in no acute distress. She had been given a dose of IV morphine for the pain with moderate relief of pain. She reports mild pain at this time. Denies any fevers or chills. Denies any other pain or discomfort. Will be admitted for further management. FORMERLY [facility], [facility] Medical History MRSA (methicillin resistant staph aureus) culture positive Cataract (lens) fragments in eye following cataract surgery Anxiety and depression Diabetes mellitus, type 2 Pulmonary emboli Parathyroid disease History of left heart catheterization (LHC) (~05/21/22) CKD (chronic kidney disease) stage 3, GFR 30-59 ml/min Essential hypertension Orthostatic hypotension Hypothyroidism Chronic back pain Obesity (BMI 35.0-39.9 without comorbidity) Normochromic normocytic anemia Hyperlipidemia Former smoker Opiate abuse, continuous Intervertebral disc disorder with radiculopathy of lumbar region Carpal tunnel syndrome Kidney stones Thyroid disease Migraines Stomach ulcer HTN (hypertension) Home Medications ?Medication ?Instructions ?Recorded ?Last Taken ?Type rizatriptan 10 mg tablet 10 mg PO PRN Migraine Sympto ms 12/27/17 04/03/24 History atorvastatin 40 mg tablet 40 mg PO QHS #30 tabs 06/19/24 Rx metoprolol succinate 25 mg 25 mg PO DAILY #30 tabs 06/18/24 Rx tablet,extended release 24 hr pantoprazole 40 mg tablet,delayed 40 mg PO DAILY 06/1206/19/24 History release ranolazine 500 mg tablet,extended 500 mg PO BID #60 ta bs 06/12/22 06/19/24 Rx release,12 hr acetaminophen 325 mg tablet 650 mg (2 x 325 mg) PO Q6H PRN PRN 11/24/23 06/16/24 Rx Pain 1-10 Or Fever >100.7 #0 tabs melatonin 3 mg tablet 3 mg PO QHS PRN PRN Insomnia #0 11/24/23 06/19/24 Rx tabs sennosides 8.6 mg-docusate sodium 2 tab PO BID PRN PRN Constipation 01/05/24 06/19/24 Rx 50 mg tablet (Stool #0 tabs Softener-Stimulant Laxative) loperamide 2 mg capsule 2 mg PO Q6H PRN loose stool 04/02/24 03/08/24 History (Anti-Diarrheal (loperamide)) fluticasone propionate 50 2 spray intranasal DAILY 06/19/24 History mcg/actuation nasal spray,suspension (Aller-Scar) nitroglycerin 0.4 mg sublingual 0.4 mg sublingual Q5M PRN chest 06/20/24 Unknown History tablet pain promethazine 25 mg tablet 25 mg PO Q6H PRN nausea and 06/20/24 Unknown History vomiting apixaban 5 mg tablet (Eliquis) 5 mg PO BID 08/19/24 Un known History bisacodyl 10 mg rectal suppository 10 mg HI DAILY PRN constipation 08/19/24 Unknown History dulaglutide 3 mg/0.5 mL 3 mg subcut QWEEK 08/19/24 U nknown History subcutaneous pen injector (Trulicity) fenofibrate 160 mg tablet 160 mg PO DAILY 08/19/24 Unk nown History insulin glargine-yfgn 100 unit/mL 48 unit subcut BID 1 Unknown History (3 mL) subcutaneous pen magnesium citrate (Citrate of 150 ml PO PRN PRN consti pation 08/19/24 Unknown History Magnesia oral) magnesium hydroxide 400 mg/5 mL 30 ml PO DAILY PRN con stipation 08/19/24 Unknown History oral suspension (Dulcolax (magnesium hydroxide)) ondansetron 4 mg disintegrating 4 mg PO Q8H PRN PRN Na usea #10 tabs 10/24/24 Unknown Rx tablet carboxymethylcellulose sodium 1 % 1 drp ophthalmic (ey e) TID 01/30/25 Unknown History eye drops (Artificial Tears (carboxymethylcellulose)) citalopram 20 mg tablet 20 mg PO QDAY 01/30/25 Unkno wn History quetiapine 25 mg tablet 25 mg PO QHS 01/30/25 Unknow n History levothyroxine 137 mcg tablet 137 mcg PO QDAY #90 tabs 04/26/25 Unknown Rx (Levoxyl) oxycodone-acetaminophen 5 mg-325 1 tab PO .every4 hour s PRN pain 30 05/23/25 Unknown Rx mg tablet days #100 tabs clindamycin HCl 150 mg capsule 450 mg (3 x 150 mg) PO TID #90 05/26/25 Unknown Rx CAPSULES oxycodone-acetaminophen 5 mg-325 1 tab PO Q6H PRN PRN Pain 3 days 05/26/25 Unknown Rx mg tablet #12 TABLETS Allergy/AdvReac Type Severity Reaction Status Date / Time celecoxib (From Celebrex) Allergy Itching Verified 05/28/25 09:15 ciprofloxacin (From Cipro) Allergy Swelling Verified 05/28/25 09:15 ciprofloxacin HCl (From Allergy Swelling Verified 05/28/25 09:15 Cipro) codeine Allergy Hives Verified 05/28/25 09:15 ibuprofen Allergy Hives Verified 05/28/25 09:15 naproxen Allergy Hives Verified 05/28/25 09:15 Penicillins Allergy Hives Verified 05/28/25 09:15 tramadol HCl (From Ultram) Allergy Hives Verified 05/28/25 09:15 ketorolac (From Toradol) AdvReac Swelling Verified 05/28/25 09:15 Family History Mother Cancer CVA (cerebral vascular accident) Hypertension Heart disease Myocardial infarction Diabetes Father Asthma Surgical History History of cholecystectomy S/P trigger finger release H/O: hysterectomy Hx of section Social History household members: other details: currently living in a NH for therapy for chronic back pain housing: long-term Smoking Status: Former smoker Tobacco: How many years used: 46 how long ago did patient quit smoking: Quit 09/2021, smoked 1 ppd since teen until quit. alcohol intake: never substance use type: other details: History of chronic opiate use. Denies abuse. ROS Constitutional Constitutional: Denies chills, fatigue, fever(s) or weakness Eyes Eyes: Denies change in vision ENT HEENT: Reports other Details: Upper lip swelling with pain Cardiovascular Cardiovascular: Denies chest pain Respiratory/Chest Respiratory/Chest: Denies shortness of breath at rest Gastrointestinal Gastrointestinal: Denies abdominal pain Vital Signs Vital Signs Vital Signs: 05/28/25 09:15 05/28/25 09:15 05/28/25 09:31 Temperature 98.8 F 98.8 F Temperature Source Oral Oral Pulse Rate 73 73 73 Respiratory Rate 16 16 16 Blood Pressure 127/51 H 127/51 H Blood Pressure Mean 76 76 Pulse Ox 97 97 97 05/28/25 10:40 Temperature 98.2 F Temperature Source Oral Pulse Rate 67 Respiratory Rate 18 Blood Pressure 131/42 H Blood Pressure Mean 71 Pulse Ox 95 Weight Weight: 92.4 kg Body Mass Index (BMI) 39.7 Physical Exam Const alert, oriented x3 and no apparent distress Constitutional Narrative: Upper middle-aged female, class II obesity, mildly fatigued appearing but otherwise sitting back comfortably in bed, conversing normally, in no acute distress. General Appearance: cooperative and comfortable HEENT normocephalic, head/scalp atraumatic, hearing grossly normal bilaterally and moist oral mucous membranes HEENT Narrative: Significant right upper lip swelling with surrounding erythema into the skin above the lip. No fluctuance noted. Eyes PERRL, EOMs intact bilaterally and conjunctivae normal Neck full ROM Chest inspection of chest normal Resp normal respiratory effort, normal air movement, no use of accessory muscles and clear to auscultation bilaterally Cardio regular rate, regular rhythm, no murmurs and peripheral pulses 2+ throughout GI normal to inspection, nondistended, normoactive bowel sounds, soft to palpation,non-tender and non-distended Back/Spine normal ROM Extremity normal to inspection, full ROM and no pedal edema Skin no rashes or lesions noted Psych mental status grossly normal Mood & Affect: anxious Results Lab / Micro Data 05/28/25 09:45 05/28/25 09:45 Labs: Laboratory Results - last 24 hr 05/28/25 09:45: WBC 6.7, RBC 4.07 L, Hgb 11.2 L, Hct 35.1 L, MCV 86.2, MCH 27.5,MCHC 31.9 L, RDW Std Deviation 46.3 H, RDW Coeff of [place] 14.7 H, Plt Count 369, MPV 9.3, Immature Gran % (Auto) 0.300, Neut % (Auto) 61.7, Lymph % (Auto) 27.3, [place] % (Auto) 8.7, Eos % (Auto) 1.3, Baso % (Auto) 0.7, Absolute Neuts (auto) 4.1, Absolute Lymphs (auto) 1.82, Nucleated RBC % 0, Sodium 133, Potassium 4.1, Chloride 97 L, Carbon Dioxide 22.7, Anion Gap 13, BUN 25 H, Creatinine 1.43 H, Estim Creat Clear Calc 41.91 L, Est GFR (MDRD) Non-Af 42 L, BUN/Creatinine Ratio 17.7, Glucose 160 H, Lactic Acid 1.2, Calcium 8.9 Assessment & Plan Assessment/Plan (1) Infected lip laceration: PLAN: Plan Patient is a 59-year-old female who presented to [facility] ED on 05/28/2025 with worsening upper lip swelling with cellulitis and failed outpatient antibiotics. 1. Right upper lip swelling with cellulitis and failed outpatient antibiotics ? Admit under inpatient status to [facility]. Presentation consistent with cellulitis secondary to lip wound due to insect bite. Poorly controlled diabetes likely contributing to development of infection. Failed outpatient p.o. clindamycin. Notably aspiration was attempted in the ED on 05/25 with no drainage noted. Will treat with IV doxycycline for now. No systemic signs of infection at this time. Pain control with oxycodone as needed. Monitor closely. No need for imaging for further evaluation at this time. 2. Poorly controlled type 2 diabetes mellitus ? Most recent A1c 10.5% on 04/06. Blood glucose 160 on admit. Will treat with reduced dose of Lantus 30 units twice daily and Humalog 8 units plus sliding scale insulin with meals while inpatient, adjust as needed. Hold home Trulicity. 3. Chronic debility ? Has lived at [facility] for the past 1.5 years. Will plan to return there at discharge. Chronic medical conditions: ? Class II obesity: BMI 39.8 on admit. Complicates hospital course and care. ? CKD stage IIIb: Creatinine 1.43 on admit, stable at baseline. ? Hypothyroidism: Continue home Synthroid. ? GERD: Continue home PPI. ? Mood disorder: Stable. Continue home citalopram and Seroquel. ? History of VTE, hypertension, hyperlipidemia: Normotensive on admit. Continuehome Eliquis, metoprolol, ranolazine, atorvastatin and fenofibrate. DVT prophylaxis: Not indicated, on Eliquis CODE STATUS: Full code, verified Expected disposition: Back to [facility], 2 to 3 days Total clinical time spent by myself addressing the patient's medical issues, reviewing all the data, and collaborating with patient's care team: 75 minutes. Charges/Coding Visit Charges Inpatient E&M: 75851 Init Hosp L3 05/28/25 1216 <Electronically signed by Chavez Alcala DO> Cosigner Signature (if applicable): CC: Dr. Chavez Alcala DO; Dr. Lizet Linares MD~ Signed [facility] Work Phone: [phone] Discharge instructions Additional Instructions Your MRI today showed some mild disc disease of L3 and L4. The thoracic spine was fine. There is no compression of your spinal cord. Nothing needs to be done acutely. Motrin and Tylenol for pain. Follow-up with your primary care physician.[facility] Work Phone: [facility] Work Phone: [phone] Discharge instructionsDetw[facility] Hospital Work Phone: [phone] Work Phone: [phone] Work Phone: [facility] Work Phone: [facility] Work Phone: [phone] Dis[facility] Work Phone: [phone] Work Phone: [phone] Work Phone: [phone] Work Phone: [facility] Work Phone: [phone] Discharge instructions Additional Instructions Your work-up today does not show a kidney stone bowel obstruction or acute appendicitis. It does demonstrate urinary tract infection but at this time it is not causing kidney damage or moving in your bloodstream. Therefore take the antibiotic as directed to help resolve your infection and return to the ER should you have any further concerns.[facility] Work Phone: [phone] Discharge instructions Additional Instructions Discard the [place] prescription. Patient has used Percocet before in the past and should be fine with this for pain. Follow-up with your doctor if not improving.[facility] Work Phone: Hospital Discharge instructions Additional Instructions Increase fiber in your diet. Take an [id number] stool softener.[facility] Work Phone: Hospital Discharge instructions Additional Instructions Watch her blood sugars very closely. Take your medications as prescribed. Recheck your blood sugar prior to going to bed tonight Call and follow-up your primary care physician this coming week.[facility] Work Phone: Hospital Discharge instructionsAdditional Instructions Upper lip infection. Blood work normal white count 9.9. You are given clindamycin IV. 18-gauge needle for needle decompression there is no exudative drainage. Taking finish antibiotic prescribed. Pain medicines as needed. Follow-up with Dr. Whatley. If you develop worsening symptoms or fevers, return to the ED for reevaluation.[facility] Work Phone: Reason for referral (narrative)* Diagnostic Procedure Only (Routine) - Pending Review Specialty Diagnoses / Procedures Referred By Mamta redmond Referred To Contact [facility] Diagnoses Encounter for screening mammogram for breast cancer Procedures OLIVER SCREENING SCREENING MAMMOGRAPHY BI 2-VIEW BREAST INC CAD Dwayne Lopez MD [address] [place] [address] [facility] [address] [place] [address] Referral ID Status Reason Start Date Expiration Date Visits Requested Visits Authorized [id number] Pending Review Auto-Generat ed Referral 03/08/2024 04/07/2025 [address] [facility] for referral (narrative)No reason for referral information availableWooCleveland Clinic [facility] Work Phone: Summary Purpose Family History [...] No January 13, 2022 2:31pm Power of Aircraft Engine Cylinder Mechanic No January 13 2:31pm Advance Directive Response Recorded Date/ Time Advance Directives No April 21 2:21pm Living Will No February 24, 2022 1: 16pm Power of Aircraft Engine Cylinder Mechanic No February 24, 2022 1:16pm Advance Directive Response Recorded Date/ Time Advance Directives No April 21 2:21pm Living Will No March 20, 2022 5 :54pm Power of Aircraft Engine Cylinder Mechanic No March 20, 2022 5:54pm Documents on File Type Date Recorded Patient Academic Intern Expl anation Advance Directive(s) 10/10/2020 10:19 AM [...] April 24, 2022 5 :45pm Power of Aircraft Engine Cylinder Mechanic No April 24, 2022 5:45pm Advance Directive Response Recorded Date/ Time Advance Directives No May 13 3:12pm Living Will No May 20, 2022 10:19pm Power of Aircraft Engine Cylinder Mechanic No May 20 10:19pm Advance Directive Response Recorded Date/ Time Advance Directives No May 13 3:12pm Living Will No May 21, 2022 4:04am Power of Aircraft Engine Cylinder Mechanic No May 21 4:04am Advance Directive Response Recorded Date/ Time Advance Directives No May 13 3:12pm Living Will No August 24 3:23am Power of Aircraft Engine Cylinder Mechanic No August 24, 2022 3:23am Advance Directive Response Recorded Date/ Time Advance Directives No May 13 2:12pm Living Will No August 24 2:23am Power of Aircraft Engine Cylinder Mechanic No August 24, 2022 2:23am Advance Directive Response Recorded Date/ Time Advance Directives No May 13 2:12pm Living Will No October 09 022 1:31am Power of Aircraft Engine Cylinder Mechanic No October 09, 2022 1:31am Advance Directive Response Recorded Date/ Time Advance Directives No May 13 2:12pm Living Will No November 05 1:46am Power of Aircraft Engine Cylinder Mechanic No November 05, 2022 1:46am Advance Directive Response Recorded Date/ Time Advance Directives No May 13 3:12pm Living Will No January 06, 2023 5:42pm Power of Aircraft Engine Cylinder Mechanic No January 06 5:42pm Advance Directive Response Recorded Date/ Time Advance Directives No May 13 3:12pm Living Will No January 07, 2023 3:43pm Power of Aircraft Engine Cylinder Mechanic No January 07 3:43pm Advance Directive Response Recorded Date/ Time Advance Directives No May 13 3:12pm Living Will No January 29, 2023 10:04pm Power of Aircraft Engine Cylinder Mechanic No January 29 10:04pm Advance Directive Response Recorded Date/ Time Advance Directives No May 13 3:12pm Living Will No March 28, 2023 9 :08am Power of Aircraft Engine Cylinder Mechanic No March 28, 2023 9:08am Advance Directive Response Recorded Date/ Time Advance Directives No May 13 3:12pm Living Will No June 04 3 4:57pm Power of Aircraft Engine Cylinder Mechanic No June 04, 2 023 4:57pm Advance Directive Response Recorded Date/ Time Advance Directives No May 13 3:12pm Living Will No June 06 3 6:12pm Power of Aircraft Engine Cylinder Mechanic No June 06, 2 023 6:12pm Advance Directive Response Recorded Date/ Time Advance Directives No May 13 3:12pm Living Will No June 10 3 2:58pm Power of Aircraft Engine Cylinder Mechanic No June 10, 2 023 2:58pm Advance Directive Response Recorded Date/ Time Advance Directives No May 13 2:12pm Living Will No November 19 8:42am Power of Aircraft Engine Cylinder Mechanic No November 19, 2023 8:42am Advance Directive Response Recorded Date/ Time Advance Directives No May 13 2:12pm Living Will No January 01, 2024 6:36pm Power of Aircraft Engine Cylinder Mechanic No December 31 6:36pm Advance Directive Response Recorded Date/ Time Advance Directives No May 13 3:12pm Living Will No January 02, 2024 12:44am Power of Aircraft Engine Cylinder Mechanic No January 01 12:44am Advance Directive Response Recorded Date/ Time Advance Directives No May 13 3:12pm Living Will No January 20, 2024 1:09am Power of Aircraft Engine Cylinder Mechanic No January 19 1:09am Advance Directive Response Recorded Date/ Time Living Will No October 24 024 12:12pm Do you have a Healthcare Power of Aircraft Engine Cylinder Mechanic? No October 24, 2024 12:12pm Living Will No January 22, 2025 10:46am Do you have a Healthcare Power of Aircraft Engine Cylinder Mechanic? No January 22, 2025 10:46am Advance Directives No May 13 3:12pm Advance Directive Response Recorded Date/ Time Advance Directives No March 16 7:49am Living Will No January 22, 2025 10:46am Do you have a Healthcare Power of Aircraft Engine Cylinder Mechanic? No January 22, 2025 10:46am Advance Directive Response Recorded Date/ Time Advance Directives No March 16 7:49am Advance Directive Response Recorded Date/ Time Do you have a Healthcare Power of Aircraft Engine Cylinder Mechanic? No May 26, 2025 12:34am Advance Directives No March 16 7:49am Advance Directive Response Recorded Date/ Time Do you have a Healthcare Power of Aircraft Engine Cylinder Mechanic? No May 26, 2025 12:34am Do you have a Healthcare Power of Aircraft Engine Cylinder Mechanic? No May 28, 2025 12:42pm Advance Directives No March 16 7:49am Chief [...] PAIN ACUTE ON CHRONIC LOW BACK PAIN ALF LABWORK LABWORK Chief Complaint GENERAL ILLNESS NUMBNESS [...] PAIN ACUTE ON CHRONIC LOW BACK PAIN ALF LABWORK LABWORK CP, DM, HTN CP, DM, [...] PAIN ACUTE ON CHRONIC LOW BACK PAIN ALF LABWORK LABWORK CP, DM, HTN CP, DM, [...] PAIN ACUTE ON CHRONIC LOW BACK PAIN ALF LABWORK LABWORK ALF LABWORK CP, DM, HTN CP, DM, HTN [...] PAIN ACUTE ON CHRONIC LOW BACK PAIN ALF LABWORK LABWORK ALF LABWORK CP, DM, HTN CP, DM, HTN [...] PAIN ACUTE ON CHRONIC LOW BACK PAIN ALF LABWORK LABWORK ALF LABWORK CP, DM, HTN CP, DM, HTN [...] PAIN ACUTE ON CHRONIC LOW BACK PAIN ALF LABWORK LABWORK ALF LABWORK CP, DM, HTN CP, DM, HTN CP, DM, HTN CP, DM, HTN LAB WORK NEW SYMPTOMS/CONCERNS CHEST PAIN CHEST PAIN ER FOLLOW UP ALF LABWORK LAB WORK CHEST PAIN CHEST PAIN ALF LABWORK Amb Documentation s/p hosp/ [facility] consult in ER Reason for Visit Hyperlipidemia Chest pain Hypothyroidism Nonspecific chest pain Atherosclerotic heart disease of [place] coronary artery without angina pectoris Chest pressure [...] PAIN ACUTE ON CHRONIC LOW BACK PAIN ALF LABWORK LABWORK ALF LABWORK CP, DM, HTN CP, DM, HTN CP, DM, HTN CP, DM, HTN LAB WORK NEW SYMPTOMS/CONCERNS CHEST PAIN CHEST PAIN ER FOLLOW UP ALF LABWORK LAB WORK CHEST PAIN CHEST PAIN ALF LABWORK ALF LABWORK Amb Documentation s/p hosp/ [facility] consult in ER ALF LABWORK DYSPNEA *OSCAR* Reason for Visit Hyperlipidemia Chest pain Hypothyroidism Nonspecific chest pain Atherosclerotic heart disease of [place] coronary artery without angina pectoris Chest pressure [...] PAIN ACUTE ON CHRONIC LOW BACK PAIN ALF LABWORK LABWORK ALF LABWORK CP, DM, HTN CP, DM, HTN CP, DM, HTN CP, DM, HTN LAB WORK NEW SYMPTOMS/CONCERNS CHEST PAIN CHEST PAIN ER FOLLOW UP ALF LABWORK LAB WORK CHEST PAIN CHEST PAIN ALF LABWORK ALF LABWORK Amb Documentation s/p hosp/ [facility] consult in ER ALF LABWORK ALF LAB WORK DYSPNEA *OSCAR* ALF LAB WORK Reason for Visit Hyperlipidemia Chest pain Hypothyroidism Nonspecific chest pain Atherosclerotic heart disease of [place] coronary artery without angina pectoris Chest pressure Dizziness Dyspnea Essential hypertension Hyperlipidemia Chief Complaint LABWORK ALF LABWORK CP, DM, HTN CP, DM, HTN CP, DM, HTN CP, DM, HTN LAB WORK NEW SYMPTOMS/CONCERNS CHEST PAIN CHEST PAIN ER FOLLOW UP ALF LABWORK LAB WORK CHEST PAIN CHEST PAIN ALF LABWORK ALF LABWORK Amb Documentation s/p hosp/ [facility] consult in ER ALF LABWORK ALF LAB WORK DYSPNEA *OSCAR* LABWORK ALF LAB WORK ALF LABWORK Reason for Visit Hyperlipidemia Chest pain Hypothyroidism Nonspecific chest pain Atherosclerotic heart disease of [place] coronary artery without angina pectoris Chest pressure Dizziness Dyspnea Essential hypertension Hyperlipidemia Chief Complaint CP, DM, HTN CP, DM, HTN CP, DM, HTN CP, DM, HTN LAB WORK NEW SYMPTOMS/CONCERNS CHEST PAIN CHEST PAIN ER FOLLOW UP ALF LABWORK LAB WORK CHEST PAIN CHEST PAIN ALF LABWORK ALF LABWORK Amb Documentation s/p hosp/ [facility] consult in ER ALF LABWORK ALF LAB WORK DYSPNEA *OSCAR* LABWORK ALF LAB WORK ALF LABWORK ALF LABWORK Reason for Visit Hyperlipidemia Chest pain Hypothyroidism Nonspecific chest pain Atherosclerotic heart disease of [place] coronary artery without angina pectoris Chest pressure Dizziness Dyspnea Essential hypertension Hyperlipidemia Chief Complaint CHEST PAIN CHEST PAIN ER FOLLOW UP ALF LABWORK LAB WORK CHEST PAIN CHEST PAIN ALF LABWORK ALF LABWORK Amb Documentation s/p hosp/ [facility] [employer] [facility] consult in ER ALF LABWORK ALF LAB WORK DYSPNEA *OSCAR* LABWORK ALF LAB WORK LABWORK ALF LABWORK ALF LABWORK ALF LAB WORK CP Reason for Visit Hypothyroidism Nonspecific chest pain Atherosclerotic heart disease of [place] coronary artery without angina pectoris Chest pressure Dizziness Dyspnea Essential hypertension Hyperlipidemia Chief Complaint ALF LABWORK ALF LABWORK Amb Documentation s/p hosp/ [facility] [employer] [facility] consult in ER ALF LABWORK ALF LAB WORK DYSPNEA *OSCAR* LABWORK ALF LAB WORK LABWORK ALF LABWORK ALF LABWORK ALF LAB WORK CP ER VISIT RETURN ALF LABWORK 3 M FU Reason for Visit Atherosclerotic hear t disease of [place] coronary artery without angina pectoris Chest pressure Dizziness Dyspnea Essential hypertension Hyperlipidemia Atherosclerotic heart disease of [place] coronary artery without angina pectoris Bilateral lower extremity edema Essential hypertension Hyperlipidemia Chief Complaint s/p hosp/ [facility] [employer] [facility] consul t in ER ALF LABWORK ALF LAB WORK DYSPNEA *OSCAR* LABWORK ALF LAB WORK LABWORK ALF LABWORK ALF LABWORK ALF LAB WORK CP ER VISIT RETURN ALF LABWORK 3 M FU ALF LAB WORK abd pain Reason for Visit Atherosclerotic hear t disease of [place] coronary artery without angina pectoris Chest pressure Dizziness Dyspnea Essential hypertension Hyperlipidemia Atherosclerotic heart disease of [place] coronary artery without angina pectoris Bilateral lower extremity edema Essential hypertension Hyperlipidemia Chief Complaint ALF LAB WOR K DYSPNEA *OSCAR* LABWORK ALF LAB WORK LABWORK ALF LABWORK ALF LABWORK ALF LAB WORK CP ER VISIT RETURN ALF LABWORK MONTHLY EXAM 3 M FU ALF LABWORK ALF LAB WORK ALF LAB WORK abd pain MONTHLY VISIT ALF LAB WORK NEW CONCERN Reason for Visit Atherosclerotic hear t disease of [place] coronary artery without angina pectoris Bilateral lower extremity edema Essential hypertension Hyperlipidemia Chief Complaint LABWORK ALF LABWORK ALF LABWORK ALF LAB WORK CP ER VISIT RETURN ALF LABWORK MONTHLY EXAM 3 M FU ALF LABWORK ALF LAB WORK ALF LAB WORK abd pain MONTHLY VISIT ALF LAB WORK NEW CONCERN NEW PROBLEM/CONCERN chest pain Reason for Visit Atherosclerotic hear t disease of [place] coronary artery without angina pectoris Bilateral lower extremity edema Essential hypertension Hyperlipidemia Chief Complaint ALF LABWORK ALF LAB WORK CP ER VISIT RETURN ALF LABWORK MONTHLY EXAM 3 M FU ALF LABWORK ALF LAB WORK ALF LAB WORK abd pain MONTHLY VISIT ALF LAB WORK NEW CONCERN LABWORK NEW PROBLEM/CONCERN chest pain ER FOLLOW UP ALF LAB WORK Reason for Visit Atherosclerotic hear t disease of [place] coronary artery without angina pectoris Bilateral lower extremity edema Essential hypertension Hyperlipidemia Chief Complaint ALF LABWORK ALF LAB WORK CP ER VISIT RETURN ALF LABWORK MONTHLY EXAM 3 M FU ALF LABWORK ALF LAB WORK ALF LAB WORK abd pain MONTHLY VISIT ALF LAB WORK NEW CONCERN LABWORK NEW PROBLEM/CONCERN ALF LABWORK chest pain ER FOLLOW UP NEW CONCERN/PROBLEM ALF LAB WORK Reason for Visit Atherosclerotic hear t disease of [place] coronary artery without angina pectoris Bilateral lower extremity edema Essential hypertension Hyperlipidemia Chief Complaint ALF LAB WOR K CP ER VISIT RETURN ALF LABWORK MONTHLY EXAM 3 M FU ALF LABWORK ALF LAB WORK ALF LAB WORK abd pain MONTHLY VISIT ALF LAB WORK NEW CONCERN LABWORK NEW PROBLEM/CONCERN ALF LABWORK chest pain ER FOLLOW UP NEW CONCERN/PROBLEM ALF LAB WORK MONTHLY EXAM ALF LAB WORK Amb Documentation Reason for Visit Atherosclerotic hear t disease of [place] coronary artery without angina pectoris Bilateral lower extremity edema Essential hypertension Hyperlipidemia Chief Complaint 3 M FU ALF LABWORK ALF LAB WORK ALF LAB WORK abd pain MONTHLY VISIT ALF LAB WORK NEW CONCERN LABWORK NEW PROBLEM/CONCERN ALF LABWORK chest pain ER FOLLOW UP NEW CONCERN/PROBLEM ALF LAB WORK MONTHLY EXAM ALF LAB WORK ALF LAB WORK MONTHLY VISIT Amb Documentation ALF LABWORK NEW CONCERN RIGHT FLANK PAIN Reason for Visit Atherosclerotic hear t disease of [place] coronary artery without angina pectoris Bilateral lower extremity edema Essential hypertension Hyperlipidemia Chief Complaint 3 M FU ALF LABWORK ALF LAB WORK ALF LAB WORK abd pain MONTHLY VISIT ALF LAB WORK NEW CONCERN LABWORK NEW PROBLEM/CONCERN ALF LABWORK chest pain ER FOLLOW UP NEW CONCERN/PROBLEM ALF LAB WORK MONTHLY EXAM ALF LAB WORK ALF LAB WORK MONTHLY VISIT Amb Documentation ALF LABWORK NEW CONCERN RIGHT FLANK PAIN FLANK PAIN Reason for Visit Atherosclerotic hear t disease of [place] coronary artery without angina pectoris Bilateral lower extremity edema Essential hypertension Hyperlipidemia Chief Complaint ALF LAB WOR K abd pain MONTHLY VISIT ALF LAB WORK NEW CONCERN LABWORK NEW PROBLEM/CONCERN ALF LABWORK chest pain ER FOLLOW UP NEW CONCERN/PROBLEM ALF LAB WORK MONTHLY EXAM ALF LAB WORK ALF LAB WORK MONTHLY VISIT Amb Documentation ALF LABWORK NEW CONCERN ALF LAB WORK ALF LAB WORK NEW CONCERN/PROBLEM ALF LABWORK NEW CONCERNS ALF LAB WORK MONTHLY EXAM RIGHT FLANK PAIN FLANK PAIN NEW CONCERN NEW CONCERN Chief Complaint abd pain MONTHLY VISIT ALF LAB WORK NEW CONCERN LABWORK NEW PROBLEM/CONCERN ALF LABWORK chest pain ER FOLLOW UP NEW CONCERN/PROBLEM ALF LAB WORK MONTHLY EXAM ALF LAB WORK ALF LAB WORK MONTHLY VISIT Amb Documentation ALF LABWORK NEW CONCERN ALF LAB WORK ALF LAB WORK NEW CONCERN/PROBLEM ALF LABWORK NEW CONCERNS ALF LAB WORK MONTHLY EXAM RIGHT FLANK PAIN FLANK PAIN NEW CONCERN NEW CONCERN ALF LAB WORK HYPERSOMNIA Chief Complaint abd pain MONTHLY VISIT ALF LAB WORK NEW CONCERN LABWORK NEW PROBLEM/CONCERN ALF LABWORK chest pain ER FOLLOW UP NEW CONCERN/PROBLEM ALF LAB WORK MONTHLY EXAM ALF LAB WORK ALF LAB WORK MONTHLY VISIT Amb Documentation ALF LABWORK NEW CONCERN ALF LAB WORK ALF LAB WORK NEW CONCERN/PROBLEM ALF LABWORK NEW CONCERNS ALF LAB WORK MONTHLY EXAM RIGHT FLANK PAIN FLANK PAIN NEW CONCERN NEW CONCERN ALF LAB WORK HYPERSOMNIA CP Chief Complaint abd pain MONTHLY VISIT ALF LAB WORK NEW CONCERN LABWORK NEW PROBLEM/CONCERN ALF LABWORK chest pain ER FOLLOW UP NEW CONCERN/PROBLEM ALF LAB WORK MONTHLY EXAM ALF LAB WORK ALF LAB WORK MONTHLY VISIT Amb Documentation ALF LABWORK NEW CONCERN ALF LAB WORK ALF LAB WORK NEW CONCERN/PROBLEM ALF LABWORK NEW CONCERNS ALF LAB WORK MONTHLY EXAM RIGHT FLANK PAIN FLANK PAIN NEW CONCERN NEW CONCERN ALF LAB WORK ALF LABWORK HYPERSOMNIA CP Chief Complaint ALF LAB WOR K MONTHLY VISIT Amb Documentation ALF LABWORK NEW CONCERN ALF LAB WORK ALF LAB WORK NEW CONCERN/PROBLEM ALF LABWORK NEW CONCERNS ALF LAB WORK MONTHLY EXAM RIGHT FLANK PAIN FLANK PAIN NEW CONCERN NEW CONCERN ALF LAB WORK ALF LABWORK HYPERSOMNIA CP NEW CONCERN ALF LABWORK 5 MO F/U ALF LAB WORK ALF LABWORK ALF LABWORK Reason for Visit Atherosclerotic hear t disease of [place] coronary artery without angina pectoris Bilateral lower extremity edema Essential hypertension Hyperlipidemia Palpitations Chief Complaint ALF LAB WOR K MONTHLY VISIT Amb Documentation ALF LABWORK NEW CONCERN ALF LAB WORK ALF LAB WORK NEW CONCERN/PROBLEM ALF LABWORK NEW CONCERNS ALF LAB WORK MONTHLY EXAM RIGHT FLANK PAIN FLANK PAIN NEW CONCERN NEW CONCERN ALF LAB WORK ALF LABWORK HYPERSOMNIA CP NEW CONCERN ALF LABWORK 5 MO F/U ALF LAB WORK ALF LABWORK ALF LABWORK constipation Reason for Visit Atherosclerotic hear t disease of [place] coronary artery without angina pectoris Bilateral lower extremity edema Essential hypertension Hyperlipidemia Palpitations Chief Complaint 5 MO F/U ALF LAB WORK ALF LABWORK MONTHLY EXAM ALF LABWORK NEW CONCERN constipation ABD PAIN Reason for Visit Atherosclerotic hear t disease of [place] coronary artery without angina pectoris Bilateral lower extremity edema Essential hypertension Hyperlipidemia Palpitations Chief Complaint 5 MO F/U ALF LAB WORK ALF LABWORK MONTHLY EXAM ALF LABWORK NEW CONCERN constipation ABD PAIN General illness Reason for Visit Atherosclerotic hear t disease of [place] coronary artery without angina pectoris Bilateral lower extremity edema Essential hypertension Hyperlipidemia Palpitations Chief Complaint 5 MO F/U ALF LAB WORK ALF LABWORK MONTHLY EXAM ALF LABWORK NEW CONCERN constipation ABD PAIN General illness constipation Reason for Visit Atherosclerotic hear t disease of [place] coronary artery without angina pectoris Bilateral lower [...] hyperglycemia hyperglycemia hyperglycemia hyperglycemia hyperglycemia ADMISSION EXAM [employer] [facility]WORK ADMISSION EXAM MD LABWORK LABWORK LABWORK ALF LAB WORK LABWORK BL PE, CHEST PAIN BL PE, CHEST PAIN BL PE, CHEST PAIN BL PE, CHEST PAIN BL PE, CHEST PAIN Reason for Visit Diarrhea Acute leg pain Diabetes mellitus with hyperglycemia Nausea Chest pressure Chief Complaint hyperglycemia hyperglycemia hyperglycemia hyperglycemia hyperglycemia hyperglycemia hyperglycemia ADMISSION EXAM [employer] [facility] ADMISSION EXAM MD LABWORK LABWORK LABWORK ALF LAB WORK LABWORK BL PE, CHEST PAIN BL PE, CHEST PAIN BL PE, CHEST PAIN BL PE, CHEST PAIN BL PE, CHEST PAIN chest pain Reason for Visit Diarrhea Acute leg pain Diabetes mellitus with hyperglycemia Nausea Chest pressure Chief Complaint hyperglycemia hyperglycemia hyperglycemia hyperglycemia hyperglycemia hyperglycemia hyperglycemia ADMISSION EXAM [employer] [facility]WORK ADMISSION EXAM MD LABWORK LABWORK LABWORK ALF LAB WORK NEW CONCERN LABWORK BL PE, CHEST PAIN BL PE, CHEST PAIN BL PE, CHEST PAIN BL PE, CHEST PAIN BL PE, CHEST PAIN LABWORK LAB WORK LABWORK LABWORK LAB WORK chest pain LABWORK LABWORK MONTHLY EXAM ALF LAB WORK LABWORK ALF LAB WORK LABWORK Reason for Visit Diarrhea Acute leg pain Diabetes mellitus with hyperglycemia Nausea Chest pressure Chief Complaint Admit Date MONTHLY EXAM September 26, 2024 1 1:30pm LABWORK September 29, 2024 5 :00am LABWORK October 06, 2024 5:00am RT BREAST PAIN October 06, 2024 2:19pm ALF LAB WORK October 13 4:00am ALF LAB WORK October 20 5:00am abd pain October 24, 2024 11:08am ALF LAB WORK October 27, 2024 5:00am MONTHLY VISIT October 27, 2024 5: 39pm LABWORK November 01, 2024 5: 07am LABWORK November 03, 2024 5 :04am LABWORK November 10, 2024 5 :00am LABWORK November 17, 2024 5 :00am LABWORK November 24, 2024 5 :00am MONTHLY EXAM November 28, 2024 9 :33pm ALF LAB WORK November 30, 2024 5:00am LABWORK December 07, 2024 8:00pm LABWORK January 05, 2025 5:0 0am CP January 22, 2025 10: 39am Chief Complaint Admit Date LABWORK September 29, 2024 5 :00am LABWORK October 06, 2024 5:00am RT BREAST PAIN October 06, 2024 2:19pm ALF LAB WORK October 13 4:00am ALF LAB WORK October 20 5:00am abd pain October 24, 2024 11:08am ALF LAB WORK October 27, 2024 5:00am MONTHLY VISIT October 27, 2024 5: 39pm LABWORK November 01, 2024 5: 07am LABWORK November 03, 2024 5 :04am LABWORK November 10, 2024 5 :00am LABWORK November 17, 2024 5 :00am LABWORK November 24, 2024 5 :00am MONTHLY EXAM November 28, 2024 9 :33pm ALF LAB WORK November 30, 2024 5:00am LABWORK December 07, 2024 8:00pm MONTHLY EXAM January 04, 2025 10: 31am LABWORK January 05, 2025 5:0 0am CP January 22, 2025 10: 39am ACUTE CARE VISIT January 22, 2025 4:0 1pm Chief Complaint Admit Date MONTHLY EXAM November 28, 2024 9 :33pm ALF LAB WORK November 30, 2024 5:00am LABWORK December 07, 2024 8:00pm MONTHLY EXAM January 04, 2025 10: 31am LABWORK January 05, 2025 5:0 0am CP January 22, 2025 10: 39am ACUTE CARE VISIT January 22, 2025 4:0 1pm MONTHLY EXAM January 23, 2025 5:48 pm Chest pain January 30, 2025 1:52 pm ALF LAB WORK March 12, 2025 4:0 0am Reason for Visit Admit Date Atherosclerotic heart diseas e of [place] coronary artery without angina pectoris January 30, 2025 1:52pm Essential hypertension January 30, 2025 1 :52pm Hyperlipidemia January 30, 2025 1:52 pm Chest pain January 30, 2025 1:52 pm Chief Complaint Admit Date CP January 22, 2025 10: 39am ACUTE CARE VISIT January 22, 2025 4:0 1pm MONTHLY EXAM January 23, 2025 5:48 pm Chest pain January 30, 2025 1:52 pm ALF LAB WORK March 05, 2025 5:0 0am ALF LAB WORK March 12, 2025 4:0 0am NEW CONCERN March 13, 2025 5:30p m ALF LAB WORK March 29, 2025 5:0 0am ALF LAB WORK April 06, 2025 5: 00am ALF LAB WORK April 12, 2025 2: 50pm Chief Complaint Admit Date CP January 22, 2025 10: 39am ACUTE CARE VISIT January 22, 2025 4:0 1pm MONTHLY EXAM January 23, 2025 5:48 pm Chest pain January 30, 2025 1:52 pm ALF LAB WORK March 05, 2025 5:0 0am ALF LAB WORK March 12, 2025 4:0 0am NEW CONCERN March 13, 2025 5:30p m MONTHLY EXAM March 27, 2025 6:00p m ALF LAB WORK March 29, 2025 5:0 0am ALF LAB WORK April 06, 2025 5: 00am ALF LAB WORK April 12, 2025 2: 50pm LABWORK April 25, 2025 5:00a m Chief Complaint Admit Date CP January 22, 2025 10: 39am ACUTE CARE VISIT January 22, 2025 4:0 1pm MONTHLY EXAM January 23, 2025 5:48 pm Chest pain January 30, 2025 1:52 pm ALF LAB WORK March 05, 2025 5:0 0am ALF LAB WORK March 12, 2025 4:0 0am NEW CONCERN March 13, 2025 5:30p m MONTHLY EXAM March 27, 2025 6:00p m ALF LAB WORK March 29, 2025 5:0 0am ALF LAB WORK April 06, 2025 5: 00am NEW CONCERN April 12, 2025 10:1 5am ALF LAB WORK April 12, 2025 2: 50pm LABWORK April 25, 2025 5:00a m Chief Complaint Admit Date CP January 22, 2025 10: 39am ACUTE CARE VISIT January 22, 2025 4:0 1pm MONTHLY EXAM January 23, 2025 5:48 pm Chest pain January 30, 2025 1:52 pm ALF LAB WORK March 05, 2025 5:0 0am ALF LAB WORK March 12, 2025 4:0 0am NEW CONCERN March 13, 2025 5:30p m MONTHLY EXAM March 27, 2025 6:00p m ALF LAB WORK March 29, 2025 5:0 0am ALF LAB WORK April 06, 2025 5: 00am NEW CONCERN April 12, 2025 10:1 5am ALF LAB WORK April 12, 2025 2: 50pm FU EXAM April 20, 2025 3:15 pm LABWORK April 25, 2025 5:00a m Chief Complaint Admit Date MONTHLY EXAM January 23, 2025 5:48 pm Chest pain January 30, 2025 1:52 pm MONTHLY VISIT February 26, 2025 4:06pm ALF LAB WORK March 05, 2025 5:0 0am ALF LAB WORK March 12, 2025 4:0 0am NEW CONCERN March 13, 2025 5:30p m MONTHLY EXAM March 27, 2025 6:00p m ALF LAB WORK March 29, 2025 5:0 0am ALF LAB WORK April 06, 2025 5: 00am NEW CONCERN April 12, 2025 10:1 5am ALF LAB WORK April 12, 2025 2: 50pm FU EXAM April 20, 2025 3:15 pm LABWORK April 25, 2025 5:00a m LABWORK May 07, 2025 5:00 am Chief Complaint Admit Date MONTHLY EXAM January 23, 2025 5:48 pm Chest pain January 30, 2025 1:52 pm MONTHLY VISIT February 26, 2025 4:06pm ALF LAB WORK March 05, 2025 5:0 0am NEW CONCERN March 05, 2025 3:46p m ALF LAB WORK March 12, 2025 4:0 0am NEW CONCERN March 13, 2025 5:30p m MONTHLY EXAM March 27, 2025 6:00p m ALF LAB WORK March 29, 2025 5:0 0am ALF LAB WORK April 06, 2025 5: 00am NEW CONCERN April 12, 2025 10:1 5am ALF LAB WORK April 12, 2025 2: 50pm FU EXAM April 20, 2025 3:15 pm LABWORK April 25, 2025 5:00a m LABWORK May 07, 2025 5:00 am Chief Complaint Admit Date MONTHLY EXAM January 23, 2025 5:48 pm Chest pain January 30, 2025 1:52 pm MONTHLY VISIT February 26, 2025 4:06pm ALF LAB WORK March 05, 2025 5:0 0am NEW CONCERN March 05, 2025 3:46p m NEW CONCERN March 08, 2025 5:24p m ALF LAB WORK March 12, 2025 4:0 0am NEW CONCERN March 13, 2025 5:30p m MONTHLY EXAM March 27, 2025 6:00p m ALF LAB WORK March 29, 2025 5:0 0am ALF LAB WORK April 06, 2025 5: 00am NEW CONCERN April 12, 2025 10:1 5am ALF LAB WORK April 12, 2025 2: 50pm FU EXAM April 20, 2025 3:15 pm LABWORK April 25, 2025 5:00a m LABWORK May 07, 2025 5:00 am Chief Complaint Admit Date Chest pain January 30, 2025 1:52 pm MONTHLY VISIT February 26, 2025 4:06pm ALF LAB WORK March 05, 2025 5:0 0am NEW CONCERN March 05, 2025 3:46p m NEW CONCERN March 08, 2025 5:24p m ALF LAB WORK March 12, 2025 4:0 0am NEW CONCERN March 13, 2025 5:30p m MONTHLY EXAM March 27, 2025 6:00p m ALF LAB WORK March 29, 2025 5:0 0am ALF LAB WORK April 06, 2025 5: 00am NEW CONCERN April 12, 2025 10:1 5am ALF LAB WORK April 12, 2025 2: 50pm FU EXAM April 20, 2025 3:15 pm LABWORK April 25, 2025 5:00a m LABWORK May 07, 2025 5:00 am R facial swelling, eye blurriness May 26, 2025 12:25am Chief Complaint Admit Date Chest pain January 30, 2025 1:52 pm MONTHLY VISIT February 26, 2025 4:06pm ALF LAB WORK March 05, 2025 5:0 0am NEW CONCERN March 05, 2025 3:46p m NEW CONCERN March 08, 2025 5:24p m ALF LAB WORK March 12, 2025 4:0 0am NEW CONCERN March 13, 2025 5:30p m MONTHLY EXAM March 27, 2025 6:00p m ALF LAB WORK March 29, 2025 5:0 0am ALF LAB WORK April 06, 2025 5: 00am NEW CONCERN April 12, 2025 10:1 5am ALF LAB WORK April 12, 2025 2: 50pm FU EXAM April 20, 2025 3:15 pm LABWORK April 25, 2025 5:00a m LABWORK May 07, 2025 5:00 am R facial swelling, eye blurriness May 26, 2025 12:25am FACE CELLULITIS W/FAILED OUTPATIENT ABX May 28, 2025 11:34am Reason for Visit Admit Date Atherosclerotic heart diseas e of [place] coronary artery without angina pectoris January 30, 2025 1:52pm Essential hypertension January 30, 2025 1 :52pm Hyperlipidemia January 30, 2025 1:52 pm Chest pain January 30, 2025 1:52 pm Infected lip laceration May 28, 2025 11:34am Chief Complaint Admit Date MONTHLY VISIT February 26, 2025 4:06pm ALF LAB WORK March 05, 2025 5:0 0am NEW CONCERN March 05, 2025 3:46p m NEW CONCERN March 08, 2025 5:24p m ALF LAB WORK March 12, 2025 4:0 0am NEW CONCERN March 13, 2025 5:30p m MONTHLY EXAM March 27, 2025 6:00p m ALF LAB WORK March 29, 2025 5:0 0am ALF LAB WORK April 06, 2025 5: 00am NEW CONCERN April 12, 2025 10:1 5am ALF LAB WORK April 12, 2025 2: 50pm FU EXAM April 20, 2025 3:15 pm LABWORK April 25, 2025 5:00a m LABWORK May 07, 2025 5:00 am R facial swelling, eye blurriness May 26, 2025 12:25am FACE CELLULITIS W/FAILED OUTPATIENT ABX May 28, 2025 11:34am FACE CELLULITIS W/FAILED OUTPATIENT ABX May 29, 2025 8:06am FACE CELLULITIS W/FAILED OUTPATIENT ABX May 30, 2025 7:35am FACE CELLULITIS W/FAILED OUTPATIENT ABX May 30, 2025 4:55pm FACE CELLULITIS W/FAILED OUTPATIENT ABX May 31, 2025 6:54am FACE CELLULITIS W/FAILED OUTPATIENT ABX May 31, 2025 8:36am FACE CELLULITIS W/FAILED OUTPATIENT ABX June 01, 2025 7:15am FACE CELLULITIS W/FAILED OUTPATIENT ABX June 01, 2025 8:00am Reason for Visit Admit Date Abscess of lip May 28, 2025 11: 34am History of diabetes mellitus May 28, 2025 11:34am Infected lip laceration May 28, 2025 11:34am Chief Complaint Admit Date MONTHLY VISIT February 26, 2025 4:06pm ALF LAB WORK March 05, 2025 5:0 0am NEW CONCERN March 05, 2025 3:46p m NEW CONCERN March 08, 2025 5:24p m ALF LAB WORK March 12, 2025 4:0 0am NEW CONCERN March 13, 2025 5:30p m MONTHLY EXAM March 27, 2025 6:00p m ALF LAB WORK March 29, 2025 5:0 0am ALF LAB WORK April 06, 2025 5: 00am NEW CONCERN April 12, 2025 10:1 5am ALF LAB WORK April 12, 2025 2: 50pm FU EXAM April 20, 2025 3:15 pm LABWORK April 25, 2025 5:00a m Follow-up Exam May 01, 2025 5:06p m LABWORK May 07, 2025 5:00 am R facial swelling, eye blurriness May 26, 2025 12:25am FACE CELLULITIS W/FAILED OUTPATIENT ABX May 28, 2025 11:34am FACE CELLULITIS W/FAILED OUTPATIENT ABX May 29, 2025 8:06am FACE CELLULITIS W/FAILED OUTPATIENT ABX May 30, 2025 7:35am FACE CELLULITIS W/FAILED OUTPATIENT ABX May 30, 2025 4:55pm FACE CELLULITIS W/FAILED OUTPATIENT ABX May 31, 2025 6:54am FACE CELLULITIS W/FAILED OUTPATIENT ABX May 31, 2025 8:36am FACE CELLULITIS W/FAILED OUTPATIENT ABX June 01, 2025 7:15am FACE CELLULITIS W/FAILED OUTPATIENT ABX June 01, 2025 8:00am Chief Complaint Admit Date MONTHLY VISIT February 26, 2025 4:06pm ALF LAB WORK March 05, 2025 5:0 0am NEW CONCERN March 05, 2025 3:46p m NEW CONCERN March 08, 2025 5:24p m ALF LAB WORK March 12, 2025 4:0 0am NEW CONCERN March 13, 2025 5:30p m MONTHLY EXAM March 27, 2025 6:00p m ALF LAB WORK March 29, 2025 5:0 0am ALF LAB WORK April 06, 2025 5: 00am NEW CONCERN April 12, 2025 10:1 5am ALF LAB WORK April 12, 2025 2: 50pm FU EXAM April 20, 2025 3:15 pm LABWORK April 25, 2025 5:00a m Follow-up Exam May 01, 2025 5:06p m New Concern May 04, 2025 10:4 4am LABWORK May 07, 2025 5:00 am R facial swelling, eye blurriness May 26, 2025 12:25am FACE CELLULITIS W/FAILED OUTPATIENT ABX May 28, 2025 11:34am FACE CELLULITIS W/FAILED OUTPATIENT ABX May 29, 2025 8:06am FACE CELLULITIS W/FAILED OUTPATIENT ABX May 30, 2025 7:35am FACE CELLULITIS W/FAILED OUTPATIENT ABX May 30, 2025 4:55pm FACE CELLULITIS W/FAILED OUTPATIENT ABX May 31, 2025 6:54am FACE CELLULITIS W/FAILED OUTPATIENT ABX May 31, 2025 8:36am FACE CELLULITIS W/FAILED OUTPATIENT ABX June 01, 2025 7:15am FACE CELLULITIS W/FAILED OUTPATIENT ABX June 01, 2025 8:00am Chief Complaint Admit Date MONTHLY VISIT February 26, 2025 4:06pm ALF LAB WORK March 05, 2025 5:0 0am NEW CONCERN March 05, 2025 3:46p m NEW CONCERN March 08, 2025 5:24p m ALF LAB WORK March 12, 2025 4:0 0am NEW CONCERN March 13, 2025 5:30p m MONTHLY EXAM March 27, 2025 6:00p m ALF LAB WORK March 29, 2025 5:0 0am ALF LAB WORK April 06, 2025 5: 00am NEW CONCERN April 12, 2025 10:1 5am ALF LAB WORK April 12, 2025 2: 50pm FU EXAM April 20, 2025 3:15 pm LABWORK April 25, 2025 5:00a m Follow-up Exam May 01, 2025 5:06p m New Concern May 04, 2025 10:4 4am LABWORK May 07, 2025 5:00 am New Concern May 07, 2025 12:4 7pm R facial swelling, eye blurriness May 26, 2025 12:25am FACE CELLULITIS W/FAILED OUTPATIENT ABX May 28, 2025 11:34am FACE CELLULITIS W/FAILED OUTPATIENT ABX May 29, 2025 8:06am FACE CELLULITIS W/FAILED OUTPATIENT ABX May 30, 2025 7:35am FACE CELLULITIS W/FAILED OUTPATIENT ABX May 30, 2025 4:55pm FACE CELLULITIS W/FAILED OUTPATIENT ABX May 31, 2025 6:54am FACE CELLULITIS W/FAILED OUTPATIENT ABX May 31, 2025 8:36am FACE CELLULITIS W/FAILED OUTPATIENT ABX June 01, 2025 7:15am FACE CELLULITIS W/FAILED OUTPATIENT ABX June 01, 2025 8:00am Chief Complaint Admit Date MONTHLY VISIT February 26, 2025 4:06pm ALF LAB WORK March 05, 2025 5:0 0am NEW CONCERN March 05, 2025 3:46p m NEW CONCERN March 08, 2025 5:24p m ALF LAB WORK March 12, 2025 4:0 0am NEW CONCERN March 13, 2025 5:30p m MONTHLY EXAM March 27, 2025 6:00p m ALF LAB WORK March 29, 2025 5:0 0am ALF LAB WORK April 06, 2025 5: 00am NEW CONCERN April 12, 2025 10:1 5am ALF LAB WORK April 12, 2025 2: 50pm FU EXAM April 20, 2025 3:15 pm LABWORK April 25, 2025 5:00a m Follow-up Exam May 01, 2025 5:06p m New Concern May 04, 2025 10:4 4am LABWORK May 07, 2025 5:00 am New Concern May 07, 2025 12:4 7pm R facial swelling, eye blurriness May 26, 2025 12:25am FACE CELLULITIS W/FAILED OUTPATIENT ABX May 28, 2025 11:34am FACE CELLULITIS W/FAILED OUTPATIENT ABX May 29, 2025 8:06am FACE CELLULITIS W/FAILED OUTPATIENT ABX May 30, 2025 7:35am FACE CELLULITIS W/FAILED OUTPATIENT ABX May 30, 2025 4:55pm FACE CELLULITIS W/FAILED OUTPATIENT ABX May 31, 2025 6:54am FACE CELLULITIS W/FAILED OUTPATIENT ABX May 31, 2025 8:36am FACE CELLULITIS W/FAILED OUTPATIENT ABX June 01, 2025 7:15am FACE CELLULITIS W/FAILED OUTPATIENT ABX June 01, 2025 8:00am POST OP June 07, 2025 9: 32am Chief Complaint Admit Date MONTHLY VISIT February 26, 2025 4:06pm ALF LAB WORK March 05, 2025 5:0 0am NEW CONCERN March 05, 2025 3:46p m NEW CONCERN March 08, 2025 5:24p m ALF LAB WORK March 12, 2025 4:0 0am NEW CONCERN March 13, 2025 5:30p m MONTHLY EXAM March 27, 2025 6:00p m ALF LAB WORK March 29, 2025 5:0 0am ALF LAB WORK April 06, 2025 5: 00am NEW CONCERN April 12, 2025 10:1 5am ALF LAB WORK April 12, 2025 2: 50pm FU EXAM April 20, 2025 3:15 pm LABWORK April 25, 2025 5:00a m Follow-up Exam May 01, 2025 5:06p m New Concern May 04, 2025 10:4 4am LABWORK May 07, 2025 5:00 am New Concern May 07, 2025 12:4 7pm R facial swelling, eye blurriness May 26, 2025 12:25am FACE CELLULITIS W/FAILED OUTPATIENT ABX May 28, 2025 11:34am FACE CELLULITIS W/FAILED OUTPATIENT ABX May 29, 2025 8:06am FACE CELLULITIS W/FAILED OUTPATIENT ABX May 30, 2025 7:35am FACE CELLULITIS W/FAILED OUTPATIENT ABX May 30, 2025 4:55pm FACE CELLULITIS W/FAILED OUTPATIENT ABX May 31, 2025 6:54am FACE CELLULITIS W/FAILED OUTPATIENT ABX May 31, 2025 8:36am FACE CELLULITIS W/FAILED OUTPATIENT ABX June 01, 2025 7:15am FACE CELLULITIS W/FAILED OUTPATIENT ABX June 01, 2025 8:00am LABWORK June 04, 2025 5: 00am POST OP June 07, 2025 9: 32am 1 W FU June 15, 2025 1: 35pm Reason for Visit Admit Date Abscess of lip May 28, 2025 11: 34am History of diabetes mellitus May 28, 2025 11:34am Infected lip laceration May 28, 2025 11:34am Abscess of lip June 07, 2025 9: 32am Chief Complaint Admit Date MONTHLY VISIT February 26, 2025 4:06pm ALF LAB WORK March 05, 2025 5:0 0am NEW CONCERN March 05, 2025 3:46p m NEW CONCERN March 08, 2025 5:24p m ALF LAB WORK March 12, 2025 4:0 0am NEW CONCERN March 13, 2025 5:30p m MONTHLY EXAM March 27, 2025 6:00p m ALF LAB WORK March 29, 2025 5:0 0am ALF LAB WORK April 06, 2025 5: 00am NEW CONCERN April 12, 2025 10:1 5am ALF LAB WORK April 12, 2025 2: 50pm FU EXAM April 20, 2025 3:15 pm LABWORK April 25, 2025 5:00a m Follow-up Exam May 01, 2025 5:06p m New Concern May 04, 2025 10:4 4am LABWORK May 07, 2025 5:00 am New Concern May 07, 2025 12:4 7pm NEW CONCERN May 25, 2025 2:5 2pm R facial swelling, eye blurriness May 26, 2025 12:25am FACE CELLULITIS W/FAILED OUTPATIENT ABX May 28, 2025 11:34am FACE CELLULITIS W/FAILED OUTPATIENT ABX May 29, 2025 8:06am FACE CELLULITIS W/FAILED OUTPATIENT ABX May 30, 2025 7:35am FACE CELLULITIS W/FAILED OUTPATIENT ABX May 30, 2025 4:55pm FACE CELLULITIS W/FAILED OUTPATIENT ABX May 31, 2025 6:54am FACE CELLULITIS W/FAILED OUTPATIENT ABX May 31, 2025 8:36am FACE CELLULITIS W/FAILED OUTPATIENT ABX June 01, 2025 7:15am FACE CELLULITIS W/FAILED OUTPATIENT ABX June 01, 2025 8:00am LABWORK June 04, 2025 5: 00am POST OP June 07, 2025 9: 32am 1 W FU June 15, 2025 1: 35pm Reason for Visit Admit Date Abscess of lip May 28, 2025 11: 34am History of diabetes mellitus May 28, 2025 11:34am Infected lip laceration May 28, 2025 11:34am Abscess of lip June 07, 2025 9: 32am Abscess of lip June 15, 2025 1: 35pm Chief Complaint Admit Date MONTHLY VISIT February 26, 2025 4:06pm ALF LAB WORK March 05, 2025 5:0 0am NEW CONCERN March 05, 2025 3:46p m NEW CONCERN March 08, 2025 5:24p m ALF LAB WORK March 12, 2025 4:0 0am NEW CONCERN March 13, 2025 5:30p m MONTHLY EXAM March 27, 2025 6:00p m ALF LAB WORK March 29, 2025 5:0 0am ALF LAB WORK April 06, 2025 5: 00am NEW CONCERN April 12, 2025 10:1 5am ALF LAB WORK April 12, 2025 2: 50pm FU EXAM April 20, 2025 3:15 pm LABWORK April 25, 2025 5:00a m Follow-up Exam May 01, 2025 5:06p m New Concern May 04, 2025 10:4 4am LABWORK May 07, 2025 5:00 am New Concern May 07, 2025 12:4 7pm NEW CONCERN May 25, 2025 2:5 2pm R facial swelling, eye blurriness May 26, 2025 12:25am FACE CELLULITIS W/FAILED OUTPATIENT ABX May 28, 2025 11:34am NEW CONCERN May 28, 2025 2:1 6pm FACE CELLULITIS W/FAILED OUTPATIENT ABX May 29, 2025 8:06am FACE CELLULITIS W/FAILED OUTPATIENT ABX May 30, 2025 7:35am FACE CELLULITIS W/FAILED OUTPATIENT ABX May 30, 2025 4:55pm FACE CELLULITIS W/FAILED OUTPATIENT ABX May 31, 2025 6:54am FACE CELLULITIS W/FAILED OUTPATIENT ABX May 31, 2025 8:36am FACE CELLULITIS W/FAILED OUTPATIENT ABX June 01, 2025 7:15am FACE CELLULITIS W/FAILED OUTPATIENT ABX June 01, 2025 8:00am LABWORK June 04, 2025 5: 00am POST OP June 07, 2025 9: 32am 1 W FU June 15, 2025 1: 35pm Chief Complaint Admit Date MONTHLY VISIT February 26, 2025 4:06pm ALF LAB WORK March 05, 2025 5:0 0am NEW CONCERN March 05, 2025 3:46p m NEW CONCERN March 08, 2025 5:24p m ALF LAB WORK March 12, 2025 4:0 0am NEW CONCERN March 13, 2025 5:30p m MONTHLY EXAM March 27, 2025 6:00p m ALF LAB WORK March 29, 2025 5:0 0am ALF LAB WORK April 06, 2025 5: 00am NEW CONCERN April 12, 2025 10:1 5am ALF LAB WORK April 12, 2025 2: 50pm FU EXAM April 20, 2025 3:15 pm LABWORK April 25, 2025 5:00a m Follow-up Exam May 01, 2025 5:06p m New Concern May 04, 2025 10:4 4am LABWORK May 07, 2025 5:00 am New Concern May 07, 2025 12:4 7pm NEW CONCERN May 25, 2025 2:5 2pm R facial swelling, eye blurriness May 26, 2025 12:25am FACE CELLULITIS W/FAILED OUTPATIENT ABX May 28, 2025 11:34am NEW CONCERN May 28, 2025 2:1 6pm FACE CELLULITIS W/FAILED OUTPATIENT ABX May 29, 2025 8:06am FACE CELLULITIS W/FAILED OUTPATIENT ABX May 30, 2025 7:35am FACE CELLULITIS W/FAILED OUTPATIENT ABX May 30, 2025 4:55pm FACE CELLULITIS W/FAILED OUTPATIENT ABX May 31, 2025 6:54am FACE CELLULITIS W/FAILED OUTPATIENT ABX May 31, 2025 8:36am FACE CELLULITIS W/FAILED OUTPATIENT ABX June 01, 2025 7:15am FACE CELLULITIS W/FAILED OUTPATIENT ABX June 01, 2025 8:00am LABWORK June 04, 2025 5: 00am MONTHLY EXAM June 05, 2025 8: 51pm POST OP June 07, 2025 9: 32am 1 W FU June 15, 2025 1: 35pm Reason for Referral Specialty Diagnoses / Procedures Referred By Contac t Referred To Contact Podiatry Diagnoses Diabetic polyneuropathy associated with type 2 diabetes mellitus (HCC) Procedures CONSULT TO PODIATRY OFFICE/OUTPATIENT [facility] 60-74 MINUTES Dwayne Lopez MD [address] [place] [address] Referral ID Status Reason Start Date Expiration Date Visits Requested Visits Authorized [id number] Pending Review PCP Requested Referral 04/07/2023 04/06/2024 1 1 Specialty Diagnoses / Procedures Referred By Contac t Referred To Contact General Surgery Diagnoses Globus sensation Screening for colon cancer Procedures CONSULT TO GENERAL SURGERY OFFICE/OUTPATIENT [facility] 60-74 MINUTES Dwayne Lopez MD [address] [place] [address] Referral ID Status Reason Start Date Expiration Date Visits Requested Visits Authorized [id number] Pending Review PCP Requested Referral 04/07/2023 04/06/2024 1 1 Specialty Diagnoses / Procedures Referred By Contac t Referred To Contact Ophthalmology Diagnoses Diabetes mellitus type 2 with neurological manifestations (HCC) Change in vision Procedures CONSULT TO OPHTHALMOLOGY OFFICE/OUTPATIENT [facility] 60-74 MINUTES Dwayne Lopez MD [address] [place] [address] Referral ID Status Reason Start Date Expiration Date Visits Requested Visits Authorized [id number] Pending Review PCP Requested Referral 04/07/2023 04/06/2024 1 1 Additional Source Comments INFORMATION SOURCE (unrecogn ized section and content) DATE CREATED AUTHOR 04/13/2018 [facility] DATE CREATED AUTHOR AUTHOR'S ORGANIZ ATION 04/14/2018 [facility] DATE CREATED AUTHOR AUTHOR'S ORGANIZ ATION 10/05/2018 [facility] DATE CREATED AUTHOR AUTHOR'S ORGANIZ ATION 10/19/2019 [facility] DATE CREATED AUTHOR AUTHOR'S ORGANIZ ATION [facility]/28/[address] [facility] DATE CREATED AUTHOR AUTHOR'S ORGANIZ ATION 04/15/2025 [facility] DATE CREATED AUTHOR AUTHOR'S ORGANIZ ATION 06/27/2025 [facility] Goals (unrecognized section and content) Goals may [...] prosecute any alcohol or drug abuse patient.[facility] the event this information is protected by the Federal Confidentiality of Alcohol and Drug Abuse Patient Records regulations: The Federal rules restrict any use of the information to criminally investigate or prosecute any alcohol or drug abuse patient.[facility] HospitalIn the event this information is protected by the Federal Confidentiality of Alcohol and Drug Abuse Patient Records regulations: The Federal rules restrict any use of the information to criminally investigate or prosecute any alcohol or drug abuse patient.[facility] HospitalIn the event this information is protected by the Federal Confidentiality of Alcohol and Drug Abuse Patient Records regulations: The Federal rules restrict any use of the information to criminally investigate or prosecute any alcohol or drug abuse patient.[facility] HospitalIn the event this information is protected by the Federal Confidentiality of Alcohol and Drug Abuse Patient Records regulations: The Federal rules restrict any use of the information to criminally investigate or prosecute any alcohol or drug abuse patient.[facility] HospitalIn the event this information is protected by the Federal Confidentiality of Alcohol and Drug Abuse Patient Records regulations: The Federal rules restrict any use of the information to criminally investigate or prosecute any alcohol or drug abuse patient.[facility] HospitalIn the event this information is protected by the Federal Confidentiality of Alcohol and Drug Abuse Patient Records regulations: The Federal rules restrict any use of the information to criminally investigate or prosecute any alcohol or drug abuse patient.[facility] HospitalIn the event this information is protected by the Federal Confidentiality of Alcohol and Drug Abuse Patient Records regulations: The Federal rules restrict any use of the information to criminally investigate or prosecute any alcohol or drug abuse patient.[facility] HospitalIn the event this information is protected by the Federal Confidentiality of Alcohol and Drug Abuse Patient Records regulations: The Federal rules restrict any use of the information to criminally investigate or prosecute any alcohol or drug abuse patient.[facility] HospitalIn the event this information is protected by the Federal Confidentiality of Alcohol and Drug Abuse Patient Records regulations: The Federal rules restrict any use of the information to criminally investigate or prosecute any alcohol or drug abuse patient.[facility] HospitalIn the event this information is protected by the Federal Confidentiality of Alcohol and Drug Abuse Patient Records regulations: The Federal rules restrict any use of the information to criminally investigate or prosecute any alcohol or drug abuse patient.[facility] HospitalIn the event this information is protected by the Federal Confidentiality of Alcohol and Drug Abuse Patient Records regulations: The Federal rules restrict any use of the information to criminally investigate or prosecute any alcohol or drug abuse patient.[facility] HospitalIn the event this information is protected by the Federal Confidentiality of Alcohol and Drug Abuse Patient Records regulations: The Federal rules restrict any use of the information to criminally investigate or prosecute any alcohol or drug abuse patient.[facility] HospitalIn the event this information is protected by the Federal Confidentiality of Alcohol and Drug Abuse Patient Records regulations: The Federal rules restrict any use of the information to criminally investigate or prosecute any alcohol or drug abuse patient.[facility] HospitalIn the event this information is protected by the Federal Confidentiality of Alcohol and Drug Abuse Patient Records regulations: The Federal rules restrict any use of the information to criminally investigate or prosecute any alcohol or drug abuse patient.[facility] HospitalIn the event this information is protected by the Federal Confidentiality of Alcohol and Drug Abuse Patient Records regulations: The Federal rules restrict any use of the information to criminally investigate or prosecute any alcohol or drug abuse patient.[facility] HospitalIn the event this information is protected by the Federal Confidentiality of Alcohol and Drug Abuse Patient Records regulations: The Federal rules restrict any use of the information to criminally investigate or prosecute any alcohol or drug abuse patient.[facility] HospitalIn the event this information is protected by the Federal Confidentiality of Alcohol and Drug Abuse Patient Records regulations: The Federal rules restrict any use of the information to criminally investigate or prosecute any alcohol or drug abuse patient.[facility] HospitalIn the event this information is protected by the Federal Confidentiality of Alcohol and Drug Abuse Patient Records regulations: The Federal rules restrict any use of the information to criminally investigate or prosecute any alcohol or drug abuse patient.[facility] HospitalIn the event this information is protected by the Federal Confidentiality of Alcohol and Drug Abuse Patient Records regulations: The Federal rules restrict any use of the information to criminally investigate or prosecute any alcohol or drug abuse patient.[facility] HospitalIn the event this information is protected by the Federal Confidentiality of Alcohol and Drug Abuse Patient Records regulations: The Federal rules restrict any use of the information to criminally investigate or prosecute any alcohol or drug abuse patient.[facility] HospitalIn the event this information is protected by the Federal Confidentiality of Alcohol and Drug Abuse Patient Records regulations: The Federal rules restrict any use of the information to criminally investigate or prosecute any alcohol or drug abuse patient.[facility] HospitalIn the event this information is protected by the Federal Confidentiality of Alcohol and Drug Abuse Patient Records regulations: The Federal rules restrict any use of the information to criminally investigate or prosecute any alcohol or drug abuse patient.[facility] HospitalIn the event this information is protected by the Federal Confidentiality of Alcohol and Drug Abuse Patient Records regulations: The Federal rules restrict any use of the information to criminally investigate or prosecute any alcohol or drug abuse patient.[facility] HospitalIn the event this information is protected by the Federal Confidentiality of Alcohol and Drug Abuse Patient Records regulations: The Federal rules restrict any use of the information to criminally investigate or prosecute any alcohol or drug abuse patient.[facility] HospitalIn the event this information is protected by the Federal Confidentiality of Alcohol and Drug Abuse Patient Records regulations: The Federal rules restrict any use of the information to criminally investigate or prosecute any alcohol or drug abuse patient.[facility] HospitalIn the event this information is protected by the Federal Confidentiality of Alcohol and Drug Abuse Patient Records regulations: The Federal rules restrict any use of the information to criminally investigate or prosecute any alcohol or drug abuse patient.[facility] HospitalIn the event this information is protected by the Federal Confidentiality of Alcohol and Drug Abuse Patient Records regulations: The Federal rules restrict any use of the information to criminally investigate or prosecute any alcohol or drug abuse patient.[facility] HospitalIn the event this information is protected by the Federal Confidentiality of Alcohol and Drug Abuse Patient Records regulations: The Federal rules restrict any use of the information to criminally investigate or prosecute any alcohol or drug abuse patient.[facility] HospitalIn the event this information is protected by the Federal Confidentiality of Alcohol and Drug Abuse Patient Records regulations: The Federal rules restrict any use of the information to criminally investigate or prosecute any alcohol or drug abuse patient.[facility] HospitalIn the event this information is protected by the Federal Confidentiality of Alcohol and Drug Abuse Patient Records regulations: The Federal rules restrict any use of the information to criminally investigate or prosecute any alcohol or drug abuse patient.[facility] HospitalIn the event this information is protected by the Federal Confidentiality of Alcohol and Drug Abuse Patient Records regulations: The Federal rules restrict any use of the information to criminally investigate or prosecute any alcohol or drug abuse patient.[facility] HospitalIn the event this information is protected by the Federal Confidentiality of Alcohol and Drug Abuse Patient Records regulations: The Federal rules restrict any use of the information to criminally investigate or prosecute any alcohol or drug abuse patient.[facility] Reason for Visit (unrecogniz ed section [...] Date Comments Population Health Navigation Outreach 08/18/2023 [place] care gaps Reason Onset Date Comments Refill [...] Comments Population Health Navigation Outreach 02/17/2024 [facility] 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 - AWV, Care gaps, HCC gap closure - [place] [facility] Reason Onset Date Comments Refill Request 03/21/2024 Reason Onset Date Comments ACM TIARA RN 04/06/2024 Reason Onset Date Comments Population Health Navigation Outreach 09/08/2024 [place] No PCP Reason Onset Date Comments Population Health Navigation Outreach 11/29/2024 [employer] workbench ronnie Reason Onset Date Comments Allied Health Visit 01/05/2025 Medication A dherence Outreach Reason Onset Date Comments Population Health Navigation Outreach 03/20/2025 [employer] [facility] [place] Reason Onset Date Comments Diabetes 03/21/2025 Care Teams (unrecognized sec tion and content) Team Status: Active Member Role Status Dates Dr. Carlee Valencia III, MD Family Provider Active Dr. Lizet Linares MD Primary Care Provider Active Team Status: Inactive Member Role Status Dates Dr. Ganesh Garcia MD Primary Care Provider, [facility] g Provider Active Miriam Cameron [employer], [employer]IV[employer]AL GRINDER TOOL-C Attending Provider Active Team Status: Inactive Member Role Status Dates Dr. Ganesh Garcia MD Primary Care Provider Active Ana Maria Geller [employer], [employer]IV[employer] GR[employer]ER TOOL-C Attending Provider Active Team Status: Inactive Member Role Status Dates Dr. Lizet Linares MD Primary Care Provider, Atten ding Provider Active Team Status: Inactive Member Role Status Dates Dr. Lizet Linares MD Primary Care Provider Active Ana Maria Geller [employer], [employer]IV[employer]ER TOOL-C Attending Provider Active Team Status: Inactive Member [...] Primary Care Provider Active Ana Maria Geller [employer], [employer]IV[employer] GR[employer]ER TOOL-C Attending Provider Active Team Status: Inactive Member Role Status Dates Dr. Lizet Linares MD Primary Care Provider Active Ana Maria NOLASCO NP-Zeus Attending Provider Active Team Status: Inactive Member [...] Primary Care Provider Active Ana Maria Geller [employer], [employer]IV[employer]ER TOOL-C Attending Provider, Referring Provider Active Team Status: Inactive Member Role Status Dates Dr. Lizet Linares MD Primary Care Provider Active Ana Maria Geller [employer] TO[employer], [employer]IV[employer]ER TOOL-C Attending Provider, Referring Provider Active Team Status: Inactive Member Role Status Dates Dr. Lizet Linares MD Primary Care Provider Active Dr. Marck Dunn DO Emergency Provider Active Team Status: Inactive Member Role Status Dates Dr. Lizet Linares MD Primary Care Provider Active Ganesh NOLASCO MD Attending Provider Active Communication Signals Intelligence Relationship Specialty Start Date End Date Dwayne Lopez MD [address] [place] [address] PCP - General Family Medicine 03/24/23 Team Status: Inactive Member Role Status Dates Dr. Ganesh Garcia MD Referring Provider Active Miriam Cameron [employer], [employer]IV[employer] TOOL-C Attending Provider Active Dr. Lizet Linares MD Primary Care Provider Active Team Status: Inactive Member Role Status Dates Dr. Lizet Linares MD Primary Care Provider Active Dr. Marck Dunn DO Attending Provider, Emergency P jony Active Team Status: Inactive Member Role Status Dates Dr. Lizet Linares MD Primary Care Provider Active Dr. Jacqueline Renteria MD Attending Provider, Referring Pr ovider Active Team Status: Inactive Member Role Status Dates Dr. Lizet Linares MD Primary Care Provider Active Ellis Peterson MD Emergency Provider Active Communication Signals Intelligence Relationship Specialty Start Date End Date Dwayne Lopez MD [address] [place] [address] PCP - General Family Medicine 03/24/23 Communication Signals Intelligence Relationship Specialty Start Date End Date Dwayne Lopez MD [address] [place] [address] PCP - General Family Medicine 03/24/23 Communication Signals Intelligence Relationship Specialty Start Date End Date Dwayne Lopez MD [address] [place] [address] PCP - General Family Medicine 03/24/23 Communication Signals Intelligence Relationship Specialty Start Date End Date Dwayne Lopez MD [address] [place] [address] PCP - General Family Medicine 03/24/23 Communication Signals Intelligence Relationship Specialty Start Date End Date Dwayne Lopez MD [address], [place] [id number] PCP - General Family Medicine 03/24/23 Communication Signals Intelligence Relationship Specialty Start Date End Date Dwayne Lopez MD [address], [place] [address] PCP - General Family Medicine 03/24/23 Communication Signals Intelligence Relationship Specialty Start Date End Date Dwayne Lopez MD [address], [place] [id number] PCP - General Family Medicine 03/24/23 Team [...] Dr. Raisa Mc MD Emergency Provider Active Communication Signals Intelligence Relationship Specialty Start Date End Date Dwayne Lopez MD [address], [place] [id number] PCP - General Family Medicine 03/24/23 Communication Signals Intelligence Relationship Specialty Start Date End Date Dwayne Lopez MD [address], [place] [id number] PCP - General Family Medicine 03/24/23 Communication Signals Intelligence Relationship Specialty Start Date End Date Dwayne Lopez MD [address] [facility] [place] [address] PCP - General Family Medicine 03/24/23 Communication Signals Intelligence Relationship Specialty Start Date End Date Dwayne Lopez MD [address] [facility] [place] [address] PCP - General Family Medicine 03/24/23 Team [...] Rivera DO Attending Provider Active Dr. Chavez lAcala , Other Provider Active Team Status: Active [...] Care Provider Acti ve Ana Maria Geller [employer], [employer]ER TOOL-C Attending Provider Active Team Status: Inactive Member Role Status Dates Dr. Jarred Lopez MD Primary Care Provider Acti ve Ellis Peterson MD Emergency Provider Active Communication Signals Intelligence Relationship Specialty Start Date End Date Dwayne Lopez MD [address], [place] [address] PCP - General Family Medicine 03/24/23 Communication Signals Intelligence Relationship Specialty Start Date End Date Dwayne Lopez MD [address], [place] [address] PCP - General Family Medicine 03/24/23 Team Status: Active Member Role Status Dates Dr. Jarred Lopez MD Primary Care Provider Eric NOLASCO MD Attending Provider, Referring Provider Active Team Status: Inactive Member Role Status Dates Dr. Jarred Lopez MD Primary Care Provider Eric Peterson MD Attending Provider, Emergency Provid er Active Team Status: Inactive Member Role Status Dates Dr. Jarred Lopez MD Primary Care Provider Eric NOLASCO MD Attending Provider, Referring Provider Active Communication Signals Intelligence Relationship Specialty Start Date End Date Dwayne Lopez MD [address], [place] [address] PCP - General Family Medicine 03/24/23 Communication Signals Intelligence Relationship Specialty Start Date End Date Dwayne Lopez MD [address], [place] [address] PCP - General Family Medicine 09/08/24 Communication Signals Intelligence Relationship Specialty Start Date End Date Dwayne Lopez MD [address], [place] [address] PCP - General Family Medicine 09/08/24 Jesica Mina APRN.CNP [address] [place] [address] Supervisor Sandblaster Family Medicine 09/30/24 Communication Signals Intelligence Relationship Specialty Start Date End Date Dwayne Lopez MD [address], [place] [address] PCP - General Family Medicine 09/08/24 Jesica Mina APRN.[employer] SUPERVISOR [address], [place] [address] Supervisor Sandblaster Family Medicine 09/30/24 Annabel Rivas STOVE MOUNTER.[employer]ER[employer] SUPERVISOR [address] [place], [place] [id number] [facility] Team Status: Active Member Role [...] End: October 27, 2024 Ana Maria Geller [employer], [employer]-C Attending Provider Active Start: October 27, 2024 [...] January 04, 2025 End: January 04, 2025 GAIL Richard Attending Provider Active St art: January 04, [...] January 22, 2025 Ana Maria Geller NP, [employer]-C Attending Provider Active Start: January 22, 2025 End: January 22, 2025 Communication Signals Intelligence Relationship Specialty Start Date End Date Dwayne Lopez MD [address] [place], [place] [id number] PCP - General Family Medicine 09/08/24 Podlogar, Jesica, STOVE MOUNTER.CAMER[employer] SUPERVISOR [address] [place], [place] [id number] [facility] Family Medicine 09/30/24 Annabel Rivas, STOVE MOUNTER.CAMERA SUPERVISOR [address] [place], [place] [id number] [facility] Family Medicine 01/15/25 Communication Signals Intelligence Relationship Specialty Start Date End Date Dwayne Lopez MD [address] [place], [place] [id number] PCP - General Family Medicine 09/08/24 Podlogar, Jesica, STOVE MOUNTER.[employer]ERA SUPERVISOR [address] [place], [place] [id number] [facility] Family Medicine 09/30/24 Annabel Rivas APRN.CAMERA SUPERVISOR [address] [place], [place] [id number] [facility] 01/15/25 Communication Signals Intelligence Relationship Specialty Start Date End Date Dwayne Lopez MD [address] [place], [place] [id number] PCP - General Family Medicine 09/08/24 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 APRN.CAMERA SUPERVISOR [address] [place], [place] [id number] Supervisor Sandblaster Family [facility] 09/30/24 Team Status: Inactive Member Role [...] March 12, 2025 End: March 12, 2025 Communication Signals Intelligence Relationship Specialty Start Date End Date Dwayne Lopez MD [address] [place], [place] [id number] PCP - General Family Medicine 09/08/24 Jesica Mina APRN.CAMERA SUPERVISOR [address] [place], [place] [id number] [facility] 09/30/24 Annabel Rivas APRN.CAMERA SUPERVISOR [address] [place], [place] [id number] Supervisor Sandblaster [facility] 04/05/25 Team Status: Active Member Role/Relationship [...] 2025 End: January 22, 2025 Ana Maria Gellre [employer], [employer]-C Attending Provider Active Start: January 22, 2025 [...] March 13, 2025 Ana Maria Geller NP [employer]-C Attending Provider Active Start: March 13, 2025 [...] End: April 20, 2025 Ana Maria Geller NP [employer]-C Attending Provider Active Start: April 20, 2025 [...] 30, 2025 End: January 30, 2025 Shonda REYNOLDS, [place] Attending Provider Active Start: January 30, 2025 End: January 30, 2025 Team Status: Inactive Member Role/Relationship Status Dates Dr. Lizet Linares MD Primary Care Provider Active Start: February 26, 2025 End: February 26, 2025 Ana Maria Geller NP [employer]-C Attending Provider Active Start: February 26, 2025 End: February 26, 2025 Team Status: Active Member Role/Relationship Status Dates Dr. Lizet Linares MD Primary Care Provider Active Start: March 05, 2025 Ana Maria Tickton OLS, [employer]-C Attending Provider Active Start: March 05, 2025 [...] End: March 13, 2025 Ana Maria Geller [employer], [employer]-C Attending Provider Active Start: March 13, 2025 [...] End: April 20, 2025 Ana Maria Geller [employer], [employer]-C Attending Provider Active Start: April 20, 2025 End: April 20, 2025 Team Status: Inactive Member Role/Relationship Status Dates Dr. Lizet Linares MD Primary Care Provider Active Start: March 05, 2025 End: March 05, 2025 Ana Maria Geller [employer], [employer]-C Attending Provider Active Start: March 05, 2025 End: March 05, 2025 Team Status: Inactive Member Role/Relationship Status Dates Dr. Lizet Linares MD Primary Care Provider Active Start: March 08, 2025 End: March 08, 2025 Ana Maria Geller NP, [employer]-C Attending Provider Active Start: March 08, 2025 [...] End: March 13, 2025 Ana Maria Geller [employer], [employer]-C Attending Provider Active Start: March 13, 2025 [...] End: April 20, 2025 Ana Maria Geller [employer], [employer]-C Attending Provider Active Start: April 20, 2025 [...] Linares MD Primary Care Provider Active Start: February 26, 2025 End: February 26, 2025 Ana Maria Geller [employer], [employer]-C Attending Provider Active Start: February 26, 2025 End: February 26, 2025 Team Status: Active Member Role/Relationship Status Dates Dr. Lizet Linares MD Primary Care Provider Active Start: March 05, 2025 Ana Maria NOLASCO [employer]-C Attending Provider Active Start: March 05, 2025 Team Status: Inactive Member Role/Relationship Status Dates Dr. Lizet Linares MD Primary Care Provider Active Start: March 05, 2025 End: March 05, 2025 Ana Maria Geller [employer], [employer]-C Attending Provider Active Start: March 05, 2025 End: March 05, 2025 Team Status: Inactive Member Role/Relationship Status Dates Dr. Lizet Linares MD Primary Care Provider Active Start: March 08, 2025 End: March 08, 2025 Ana Maria Geller [employer], [employer]-C Attending Provider Active Start: March 08, 2025 End: March 08, 2025 Team Status: Inactive Member Role/Relationship Status Dates Dr. Lizet Linares MD Primary Care Provider Active Start: May 26, 2025 End: May 26, 2025 Dr. Raúl Alejo DO Emergency Provider Active Start : May 26, 2025 End: May 26, 2025 Team Status: Active Member Role/Relationship Status Dates Dr. Lizet Linares MD Primary Care Provider Active Start: May 28, 2025 Dr. Delores Moya MD Emergency Provider Active S tart: May 28, 2025 Dr. Chavez Alcala DO Admit Provider Active Start: May 28, 2025 Dr. Chavez Alcala DO Attending Provider Active Start: May 28, 2025 Dr. Chavez Alcala DO Other Provider Active Start: May 28, 2025 Team Status: Inactive Member Role/Relationship Status Dates Dr. Lizet Linares MD Primary Care Provider Active Start: February 26, 2025 End: February 26, 2025 Ana Maria Geller [employer], [employer]-C Attending Provider Active Start: February 26, 2025 End: February 26, 2025 Team Status: Active Member Role/Relationship Status Dates Dr. Lizet Linares MD Primary Care Provider Active Start: March 05, 2025 Ana Maria Geller OLS, [employer]-C Attending Provider Active Start: March 05, 2025 Team Status: Inactive Member Role/Relationship Status Dates Dr. Lizet Linares MD Primary Care Provider Active Start: March 05, 2025 End: March 05, 2025 Ana Maria Geller [employer], [employer]-C Attending Provider Active Start: March 05, 2025 End: March 05, 2025 Team Status: Inactive Member Role/Relationship Status Dates Dr. Lizet Linares MD Primary Care Provider Active Start: March 08, 2025 End: March 08, 2025 Ana Maria Geller [employer], [employer]-C Attending Provider Active Start: March 08, 2025 End: March 08, 2025 Team Status: Inactive Member Role/Relationship Status Dates Dr. Lizet Linares MD Primary Care Provider Active Start: May 26, 2025 End: May 26, 2025 Dr. Raúl Alejo DO Emergency Provider Active Start : May 26, 2025 End: May 26, 2025 Team Status: Inactive Member Role/Relationship Status Dates Dr. Lizet Linares MD Primary Care Provider Active Start: May 28, 2025 End: June 01, 2025 Dr. Delores Moya MD Emergency Provider Active S tart: May 28, 2025 End: June 01, 2025 Dr. Chavez Alcala DO Admit Provider Active Start: May 28, 2025 End: June 01, 2025 Dr. Chavez Alcala DO Other Provider Active Start: May 28, 2025 End: June 01, 2025 Dr. John Shaw MD Attending Provider Active Start: May 28, 2025 End: June 01, 2025 Dr. Juan Chiang MD Other Provider Active Start: May 28, 2025 End: June 01, 2025 Dr. Juan What[place] MD Other Provider Active Star t: May 28, 2025 End: June 01, 2025 Team Status: Active Member Role/Relationship Status Dates Dr. Lizet Linares MD Primary Care Provider Active Start: May 29, 2025 Dr. Delores Moya MD Emergency Provider Active S tart: May 29, 2025 Dr. Chavez Alcala DO Admit Provider Active Start: May 29, 2025 Dr. Chavez Alcala DO Other Provider Active Start: May 29, 2025 Dr. John Shaw MD Attending Provider Active Start: May 29, 2025 Dr. John Shaw MD Other Provider Active Star t: May 29, 2025 Team Status: Active Member Role/Relationship Status Dates Dr. Lizet Linares MD Primary Care Provider Active Start: May 30, 2025 Dr. Delores Moya MD Emergency Provider Active S tart: May 30, 2025 Dr. Chavez Alcala DO Admit Provider Active Start: May 30, 2025 Dr. Chavez Alcala DO Other Provider Active Start: May 30, 2025 Dr. John Shaw MD Attending Provider Active Start: May 30, 2025 Dr. John Shaw MD Other Provider Active Star t: May 30, 2025 Dr. Juan Chiang MD Other Provider Active Start: May 30, 2025 Team Status: Active Member Role/Relationship Status Dates Dr. Lizet Linares MD Primary Care Provider Active Start: May 30, 2025 Dr. Delores Moya MD Emergency Provider Active S tart: May 30, 2025 Dr. Chavez Alcala DO Admit Provider Active Start: May 30, 2025 Dr. Chavez Alcala DO Other Provider Active Start: May 30, 2025 Dr. John Shaw MD Other Provider Active Star t: May 30, 2025 Dr. Juan Chiang MD Other Provider Active Start: May 30, 2025 Dr. Austyn Patel MD Other Provider Active Sta rt: May 30, 2025 Dr. Juan [place] MD Attending Provider Active Start: May 30, 2025 Team Status: Active Member Role/Relationship Status Dates Dr. Lizet Linares MD Primary Care Provider Active Start: May 31, 2025 Dr. Delores Moya MD Emergency Provider Active S tart: May 31, 2025 Dr. Chavez Alcala DO Admit Provider Active Start: May 31, 2025 Dr. Chavez Alcala DO Other Provider Active Start: May 31, 2025 Dr. John Shaw MD Attending Provider Active Start: May 31, 2025 Dr. John Shaw MD Other Provider Active Star t: May 31, 2025 Dr. Juan Chiang MD Other Provider Active Start: May 31, 2025 Dr. Austyn Patel MD Other Provider Active Sta rt: May 31, 2025 Team Status: Active Member Role/Relationship Status Dates Dr. Lizet Linares MD Primary Care Provider Active Start: May 31, 2025 Dr. Delores Moya MD Emergency Provider Active S tart: May 31, 2025 Dr. Chavez Alcala DO Admit Provider Active Start: May 31, 2025 Dr. Chavez Alcala DO Other Provider Active Start: May 31, 2025 Dr. John Shaw MD Other Provider Active Star t: May 31, 2025 Dr. Juan Chiang MD Other Provider Active Start: May 31, 2025 Dr. Austyn Patel MD Other Provider Active Sta rt: May 31, 2025 Dr. Juan [place] MD Attending Provider Active Start: May 31, 2025 Team Status: Active Member Role/Relationship Status Dates Dr. Lizet Linares MD Primary Care Provider Active Start: June 01, 2025 Dr. Delores Moya MD Emergency Provider Active S tart: June 01, 2025 Dr. Chavez Alcala DO Admit Provider Active Start: June 01, 2025 Dr. Chavez Alcala DO Other Provider Active Start: June 01, 2025 Dr. John Shaw MD Attending Provider Active Start: June 01, 2025 Dr. John Shaw MD Other Provider Active Star t: June 01, 2025 Dr. Juan Chiang MD Other Provider Active Start: June 01, 2025 Dr. Juan [place] MD Other Provider Active Star t: June 01, 2025 Team Status: Active Member Role/Relationship Status Dates Dr. Lizet Linares MD Primary Care Provider Active Start: June 01, 2025 Dr. Delores Moya MD Emergency Provider Active S tart: June 01, 2025 Dr. Chavez Alcala DO Admit Provider Active Start: June 01, 2025 Dr. Chavez Alcala DO Other Provider Active Start: June 01, 2025 Dr. John Shaw MD Other Provider Active Star t: June 01, 2025 Dr. Juan Chiang MD Other Provider Active Start: June 01, 2025 Dr. Juan [place] MD Attending Provider Active Start: June 01, 2025 Dr. Juan [place] MD Other Provider Active Star t: June 01, 2025 Team Status: Inactive Member Role/Relationship Status Dates Dr. Lizet Linares MD Primary Care Provider Active Start: May 01, 2025 End: May 01, 2025 Ana Maria Geller [employer], [employer]-C Attending Provider Active Start: May 01, 2025 End: May 01, 2025 Team Status: Inactive Member Role/Relationship Status Dates Dr. Lizet Linares MD Primary Care Provider Active Start: May 28, 2025 End: June 01, 2025 Dr. Delores Moya MD Emergency Provider Active S tart: May 28, 2025 End: June 01, 2025 Dr. Chavez Alcala DO Admit Provider Active Start: May 28, 2025 End: June 01, 2025 Dr. Chavez Alcala DO Other Provider Active Start: May 28, 2025 End: June 01, 2025 Dr. John Shaw MD Attending Provider Active Start: May 28, 2025 End: June 01, 2025 Dr. Juan Chiang MD Other Provider Active Start: May 28, 2025 End: June 01, 2025 Dr. Juan [place] MD Other Provider Active Star t: May 28, 2025 End: June 01, 2025 Team Status: Active Member Role/Relationship Status Dates Dr. Lizet Linares MD Primary Care Provider Active Start: May 29, 2025 Dr. Delores Moya MD Emergency Provider Active S tart: May 29, 2025 Dr. Chavez Alcala DO Admit Provider Active Start: May 29, 2025 Dr. Chavez Alcala DO Other Provider Active Start: May 29, 2025 Dr. John Shaw MD Attending Provider Active Start: May 29, 2025 Dr. John Shaw MD Other Provider Active Star t: May 29, 2025 Team Status: Active Member Role/Relationship Status Dates Dr. Lizet Linares MD Primary Care Provider Active Start: May 30, 2025 Dr. Delores Moya MD Emergency Provider Active S tart: May 30, 2025 Dr. Chavez Alcala DO Admit Provider Active Start: May 30, 2025 Dr. Chavez Alcala DO Other Provider Active Start: May 30, 2025 Dr. John Shaw MD Attending Provider Active Start: May 30, 2025 Dr. John Shaw MD Other Provider Active Star t: May 30, 2025 Dr. Juan Chiang MD Other Provider Active Start: May 30, 2025 Team Status: Active Member Role/Relationship Status Dates Dr. Lizet Linares MD Primary Care Provider Active Start: May 30, 2025 Dr. Delores Moya MD Emergency Provider Active S tart: May 30, 2025 Dr. Chavez Alcala DO Admit Provider Active Start: May 30, 2025 Dr. Chavez Alcala DO Other Provider Active Start: May 30, 2025 Dr. John Shaw MD Other Provider Active Star t: May 30, 2025 Dr. Juan Chiang MD Other Provider Active Start: May 30, 2025 Dr. Austyn Patel MD Other Provider Active Sta rt: May 30, 2025 Dr. Juan [place] MD Attending Provider Active Start: May 30, 2025 Team Status: Active Member Role/Relationship Status Dates Dr. Lizet Linares MD Primary Care Provider Active Start: May 31, 2025 Dr. Delores Moya MD Emergency Provider Active S tart: May 31, 2025 Dr. Chavez Alcala DO Admit Provider Active Start: May 31, 2025 Dr. Chavez Alcala DO Other Provider Active Start: May 31, 2025 Dr. John Shaw MD Attending Provider Active Start: May 31, 2025 Dr. John Shaw MD Other Provider Active Star t: May 31, 2025 Dr. Juan Chiang MD Other Provider Active Start: May 31, 2025 Dr. Austyn Patel MD Other Provider Active Sta rt: May 31, 2025 Team Status: Active Member Role/Relationship Status Dates Dr. Lizet Linares MD Primary Care Provider Active Start: May 31, 2025 Dr. Delores Moya MD Emergency Provider Active S tart: May 31, 2025 Dr. Chavez Alcala DO Admit Provider Active Start: May 31, 2025 Dr. Chavez Alcala DO Other Provider Active Start: May 31, 2025 Dr. John Shaw MD Other Provider Active Star t: May 31, 2025 Dr. Juan Chiang MD Other Provider Active Start: May 31, 2025 Dr. Austyn Patel MD Other Provider Active Sta rt: May 31, 2025 Dr. Juan [place] MD Attending Provider Active Start: May 31, 2025 Team Status: Active Member Role/Relationship Status Dates Dr. Lizet Linares MD Primary Care Provider Active Start: June 01, 2025 Dr. Delores Moya MD Emergency Provider Active S tart: June 01, 2025 Dr. Chavez Alcala DO Admit Provider Active Start: June 01, 2025 Dr. Chavez Alcala DO Other Provider Active Start: June 01, 2025 Dr. John Shaw MD Attending Provider Active Start: June 01, 2025 Dr. John Shaw MD Other Provider Active Star t: June 01, 2025 Dr. Juan Chiang MD Other Provider Active Start: June 01, 2025 Dr. Juan [place] MD Other Provider Active Star t: June 01, 2025 Team Status: Active Member Role/Relationship Status Dates Dr. Lizet Linares MD Primary Care Provider Active Start: June 01, 2025 Dr. Delores Moya MD Emergency Provider Active S tart: June 01, 2025 Dr. Chavez Alcala DO Admit Provider Active Start: June 01, 2025 Dr. Chavez Alcala DO Other Provider Active Start: June 01, 2025 Dr. John Shaw MD Other Provider Active Star t: June 01, 2025 Dr. Juan Chiang MD Other Provider Active Start: June 01, 2025 Dr. Juan [place] MD Attending Provider Active Start: June 01, 2025 Dr. Juan [place] MD Other Provider Active Star t: June 01, 2025 Team Status: Active Member Role/Relationship Status Dates Dr. Lizet Linares MD Primary Care Provider Active Start: June 04, 2025 Lizet NOLASCO MD Attending Provider Active Start: June 04, 2025 Team Status: Inactive Member Role/Relationship Status Dates Dr. Lizet Linares MD Primary Care Provider Active Start: May 04, 2025 End: May 04, 2025 Ana Maria Geller [employer], [employer]-C Attending Provider Active Start: May 04, 2025 End: May 04, 2025 Team Status: Inactive Member Role/Relationship Status Dates Dr. Lizet Linares MD Primary Care Provider Active Start: May 26, 2025 End: May 26, 2025 Dr. Raúl Alejo DO Emergency Provider Active Start : May 26, 2025 End: May 26, 2025 Team Status: Inactive Member Role/Relationship Status Dates Dr. Lizet Linares MD Primary Care Provider Active Start: May 28, 2025 End: June 01, 2025 Dr. Delores Moya MD Emergency Provider Active S tart: May 28, 2025 End: June 01, 2025 Dr. Chavez Alcala DO Admit Provider Active Start: May 28, 2025 End: June 01, 2025 Dr. Chavez Alcala DO Other Provider Active Start: May 28, 2025 End: June 01, 2025 Dr. John Shaw MD Attending Provider Active Start: May 28, 2025 End: June 01, 2025 Dr. Juan Chiang MD Other Provider Active Start: May 28, 2025 End: June 01, 2025 Dr. Juan [place] MD Other Provider Active Star t: May 28, 2025 End: June 01, 2025 Team Status: Active Member Role/Relationship Status Dates Dr. Lizet Linares MD Primary Care Provider Active Start: May 29, 2025 Dr. Delores Moya MD Emergency Provider Active S tart: May 29, 2025 Dr. Chavez Alcala DO Admit Provider Active Start: May 29, 2025 Dr. Chavez Alcala DO Other Provider Active Start: May 29, 2025 Dr. John Shaw MD Attending Provider Active Start: May 29, 2025 Dr. John Shaw MD Other Provider Active Star t: May 29, 2025 Team Status: Active Member Role/Relationship Status Dates Dr. Lizet Linares MD Primary Care Provider Active Start: May 30, 2025 Dr. Delores Moya MD Emergency Provider Active S tart: May 30, 2025 Dr. Chavez Alcala DO Admit Provider Active Start: May 30, 2025 Dr. Chavez Alcala DO Other Provider Active Start: May 30, 2025 Dr. John Shaw MD Attending Provider Active Start: May 30, 2025 Dr. John Shaw MD Other Provider Active Star t: May 30, 2025 Dr. Juan Chiang MD Other Provider Active Start: May 30, 2025 Team Status: Active Member Role/Relationship Status Dates Dr. Lizet Linares MD Primary Care Provider Active Start: May 30, 2025 Dr. Delores Moya MD Emergency Provider Active S tart: May 30, 2025 Dr. Chavez Alcala DO Admit Provider Active Start: May 30, 2025 Dr. Chavez Alcala DO Other Provider Active Start: May 30, 2025 Dr. John Shaw MD Other Provider Active Star t: May 30, 2025 Dr. Juan Chiang MD Other Provider Active Start: May 30, 2025 Dr. Austyn Patel MD Other Provider Active Sta rt: May 30, 2025 Dr. Juan [place] MD Attending Provider Active Start: May 30, 2025 Team Status: Active Member Role/Relationship Status Dates Dr. Lizet Linares MD Primary Care Provider Active Start: May 31, 2025 Dr. Delores Moya MD Emergency Provider Active S tart: May 31, 2025 Dr. Chavez Alcala DO Admit Provider Active Start: May 31, 2025 Dr. Chavez Alcala DO Other Provider Active Start: May 31, 2025 Dr. John Shaw MD Attending Provider Active Start: May 31, 2025 Dr. John Shaw MD Other Provider Active Star t: May 31, 2025 Dr. Juan Chiang MD Other Provider Active Start: May 31, 2025 Dr. Austyn Patel MD Other Provider Active Sta rt: May 31, 2025 Team Status: Active Member Role/Relationship Status Dates Dr. Lziet Linares MD Primary Care Provider Active Start: May 31, 2025 Dr. Delores Moya MD Emergency Provider Active S tart: May 31, 2025 Dr. Chavez Alcala DO Admit Provider Active Start: May 31, 2025 Dr. Chavez Alcala DO Other Provider Active Start: May 31, 2025 Dr. John Shaw MD Other Provider Active Star t: May 31, 2025 Dr. Juan Chiang MD Other Provider Active Start: May 31, 2025 Dr. Austyn Patel MD Other Provider Active Sta rt: May 31, 2025 Dr. Juan [place] MD Attending Provider Active Start: May 31, 2025 Team Status: Active Member Role/Relationship Status Dates Dr. Lizet Linares MD Primary Care Provider Active Start: June 01, 2025 Dr. Delores Moya MD Emergency Provider Active S tart: June 01, 2025 Dr. Chavez Alcala DO Admit Provider Active Start: June 01, 2025 Dr. Chavez Alcala DO Other Provider Active Start: June 01, 2025 Dr. John Shaw MD Attending Provider Active Start: June 01, 2025 Dr. John Shaw MD Other Provider Active Star t: June 01, 2025 Dr. Juan Chiang MD Other Provider Active Start: June 01, 2025 Dr. Juan What[place] MD Other Provider Active Star t: June 01, 2025 Team Status: Active Member Role/Relationship Status Dates Dr. Lizet Linares MD Primary Care Provider Active Start: June 01, 2025 Dr. Delores Moya MD Emergency Provider Active S tart: June 01, 2025 Dr. Chavez Alcala DO Admit Provider Active Start: June 01, 2025 Dr. Chavez Alcala DO Other Provider Active Start: June 01, 2025 Dr. John Shaw MD Other Provider Active Star t: June 01, 2025 Dr. Juan Chiang MD Other Provider Active Start: June 01, 2025 Dr. Juan What[place] MD Attending Provider Active Start: June 01, 2025 Dr. Juan What[place] MD Other Provider Active Star t: June 01, 2025 Team Status: Active Member Role/Relationship Status Dates Dr. Lizet Linares MD Primary Care Provider Active Start: June 04, 2025 Lizet NOLASCO MD Attending Provider Active Start: June 04, 2025 Team Status: Inactive Member Role/Relationship Status Dates Dr. Lizet Linares MD Primary Care Provider Active Start: May 07, 2025 End: May 07, 2025 Ana Maria Geller [employer], [employer]-C Attending Provider Active Start: May 07, 2025 End: May 07, 2025 Team Status: Inactive Member Role/Relationship Status Dates Dr. Lizet Linares MD Primary Care Provider Active Start: May 26, 2025 End: May 26, 2025 Dr. Raúl Alejo DO Emergency Provider Active Start : May 26, 2025 End: May 26, 2025 Team Status: Inactive Member Role/Relationship Status Dates Dr. Lizet Linares MD Primary Care Provider Active Start: May 28, 2025 End: June 01, 2025 Dr. Delores Moya MD Emergency Provider Active S tart: May 28, 2025 End: June 01, 2025 Dr. Chavez Alcala DO Admit Provider Active Start: May 28, 2025 End: June 01, 2025 Dr. Chavez Alcala DO Other Provider Active Start: May 28, 2025 End: June 01, 2025 Dr. John Shaw MD Attending Provider Active Start: May 28, 2025 End: June 01, 2025 Dr. Juan Chiang MD Other Provider Active Start: May 28, 2025 End: June 01, 2025 Dr. Juan What[place] MD Other Provider Active Star t: May 28, 2025 End: June 01, 2025 Team Status: Active Member Role/Relationship Status Dates Dr. Lizet Linares MD Primary Care Provider Active Start: May 29, 2025 Dr. Delores Moya MD Emergency Provider Active S tart: May 29, 2025 Dr. Chavez Alcala DO Admit Provider Active Start: May 29, 2025 Dr. Chavez Alcala DO Other Provider Active Start: May 29, 2025 Dr. John Shaw MD Attending Provider Active Start: May 29, 2025 Dr. John Shaw MD Other Provider Active Star t: May 29, 2025 Team Status: Active Member Role/Relationship Status Dates Dr. Lizet Linares MD Primary Care Provider Active Start: May 30, 2025 Dr. Delores Moya MD Emergency Provider Active S tart: May 30, 2025 Dr. Chavez Alcala DO Admit Provider Active Start: May 30, 2025 Dr. Chavez Alcala DO Other Provider Active Start: May 30, 2025 Dr. John Shaw MD Attending Provider Active Start: May 30, 2025 Dr. John Shaw MD Other Provider Active Star t: May 30, 2025 Dr. Juan Chiang MD Other Provider Active Start: May 30, 2025 Team Status: Active Member Role/Relationship Status Dates Dr. Lizet Linares MD Primary Care Provider Active Start: May 30, 2025 Dr. Delores Moya MD Emergency Provider Active S tart: May 30, 2025 Dr. Chavez Alcala DO Admit Provider Active Start: May 30, 2025 Dr. Chavez Alcala DO Other Provider Active Start: May 30, 2025 Dr. John Shaw MD Other Provider Active Star t: May 30, 2025 Dr. Juan Chiang MD Other Provider Active Start: May 30, 2025 Dr. Austyn Patel MD Other Provider Active Sta rt: May 30, 2025 Dr. Juan Whatley MD Attending Provider Active Start: May 30, 2025 Team Status: Active Member Role/Relationship Status Dates Dr. Lizet Linares MD Primary Care Provider Active Start: May 31, 2025 Dr. Delores Moya MD Emergency Provider Active S tart: May 31, 2025 Dr. Chavez Alcala DO Admit Provider Active Start: May 31, 2025 Dr. Chavez Alcala DO Other Provider Active Start: May 31, 2025 Dr. John Shaw MD Attending Provider Active Start: May 31, 2025 Dr. John Shaw MD Other Provider Active Star t: May 31, 2025 Dr. Juan Chiang MD Other Provider Active Start: May 31, 2025 Dr. Austyn Patel MD Other Provider Active Sta rt: May 31, 2025 Team Status: Active Member Role/Relationship Status Dates Dr. Lizet Linares MD Primary Care Provider Active Start: May 31, 2025 Dr. Dleores Moya MD Emergency Provider Active S tart: May 31, 2025 Dr. Chavez Alcala DO Admit Provider Active Start: May 31, 2025 Dr. Chavez Alcala DO Other Provider Active Start: May 31, 2025 Dr. John Shaw MD Other Provider Active Star t: May 31, 2025 Dr. Juan Chiang MD Other Provider Active Start: May 31, 2025 Dr. Austyn Patel MD Other Provider Active Sta rt: May 31, 2025 Dr. Juan Whatley MD Attending Provider Active Start: May 31, 2025 Team Status: Active Member Role/Relationship Status Dates Dr. Lizet Linares MD Primary Care Provider Active Start: June 01, 2025 Dr. Delores Moya MD Emergency Provider Active S tart: June 01, 2025 Dr. Chavez Alcala DO Admit Provider Active Start: June 01, 2025 Dr. Chavez Alcala DO Other Provider Active Start: June 01, 2025 Dr. John Shaw MD Attending Provider Active Start: June 01, 2025 Dr. John Shaw MD Other Provider Active Star t: June 01, 2025 Dr. Juan Chiang MD Other Provider Active Start: June 01, 2025 Dr. Juan Whatley MD Other Provider Active Star t: June 01, 2025 Team Status: Active Member Role/Relationship Status Dates Dr. Lizet Linares MD Primary Care Provider Active Start: June 01, 2025 Dr. Delores Moya MD Emergency Provider Active S tart: June 01, 2025 Dr. Chavez Alcala DO Admit Provider Active Start: June 01, 2025 Dr. Chavez Alcala DO Other Provider Active Start: June 01, 2025 Dr. John Shaw MD Other Provider Active Star t: June 01, 2025 Dr. Juan Chiang MD Other Provider Active Start: June 01, 2025 Dr. Juan Whatley MD Attending Provider Active Start: June 01, 2025 Dr. Juan Whatley MD Other Provider Active Star t: June 01, 2025 Team Status: Active Member Role/Relationship Status Dates Dr. Lizet Linares MD Primary Care Provider Active Start: June 04, 2025 Lizet NOLASCO MD Attending Provider Active Start: June 04, 2025 Team Status: Inactive Member Role/Relationship Status Dates Dr. Lizet Linares MD Primary Care Provider Active Start: May 26, 2025 End: May 26, 2025 Dr. Raúl Alejo DO Attending Provider Active Start : May 26, 2025 End: May 26, 2025 Dr. Raúl Alejo DO Emergency Provider Active Start : May 26, 2025 End: May 26, 2025 Team Status: Inactive Member Role/Relationship Status Dates Dr. Lizet Linares MD Primary Care Provider Active Start: June 07, 2025 End: June 07, 2025 Dr. Lizet Linares MD Referring Provider Active Start: June 07, 2025 End: June 07, 2025 Dr. Juan Whatley MD Attending Provider Active Start: June 07, 2025 End: June 07, 2025 Team Status: Active Member Role/Relationship Status Dates Dr. Lizet Linares MD Primary Care Provider Active Start: June 11, 2025 Lizet NOLASCO MD Attending Provider Active Start: June 11, 2025 Team Status: Inactive Member Role/Relationship Status Dates Dr. Lizet Linares MD Primary Care Provider Active Start: June 15, 2025 End: June 15, 2025 Dr. Lizet Linares MD Referring Provider Active Start: June 15, 2025 End: June 15, 2025 Dr. Juan Whatley MD Attending Provider Active Start: June 15, 2025 End: June 15, 2025 Team Status: Inactive Member Role/Relationship Status Dates Dr. Lizet Linares MD Primary Care Provider Active Start: May 25, 2025 End: May 25, 2025 Ana Maria Geller [employer] Attending Provider Active Start: May 25, 2025 End: May 25, 2025 Team Status: Inactive Member Role/Relationship Status Dates Dr. Lizet Linares MD Primary Care Provider Active Start: May 26, 2025 End: May 26, 2025 Dr. Raúl Alejo DO Attending Provider Active Start : May 26, 2025 End: May 26, 2025 Dr. Raúl Alejo DO Emergency Provider Active Start : May 26, 2025 End: May 26, 2025 Team Status: Inactive Member Role/Relationship Status Dates Dr. Lizet Linares MD Primary Care Provider Active Start: May 28, 2025 End: June 01, 2025 Dr. Delores Moya MD Emergency Provider Active S tart: May 28, 2025 End: June 01, 2025 Dr. Chavez Alcala DO Admit Provider Active Start: May 28, 2025 End: June 01, 2025 Dr. Chavez Alcala DO Other Provider Active Start: May 28, 2025 End: June 01, 2025 Dr. John Shaw MD Attending Provider Active Start: May 28, 2025 End: June 01, 2025 Dr. Juan Chiang MD Other Provider Active Start: May 28, 2025 End: June 01, 2025 Dr. Juan Whatley MD Other Provider Active Star t: May 28, 2025 End: June 01, 2025 Team Status: Active Member Role/Relationship Status Dates Dr. Lizet Linares MD Primary Care Provider Active Start: May 29, 2025 Dr. Delores Moya MD Emergency Provider Active S tart: May 29, 2025 Dr. Chavez Alcala DO Admit Provider Active Start: May 29, 2025 Dr. Chavez Alcala DO Other Provider Active Start: May 29, 2025 Dr. John Shaw MD Attending Provider Active Start: May 29, 2025 Dr. John Shaw MD Other Provider Active Star t: May 29, 2025 Team Status: Active Member Role/Relationship Status Dates Dr. Lizet Linares MD Primary Care Provider Active Start: May 30, 2025 Dr. Delores Moya MD Emergency Provider Active S tart: May 30, 2025 Dr. Chavez Alcala DO Admit Provider Active Start: May 30, 2025 Dr. Chavez Alcala DO Other Provider Active Start: May 30, 2025 Dr. John Shaw MD Attending Provider Active Start: May 30, 2025 Dr. John Shaw MD Other Provider Active Star t: May 30, 2025 Dr. Juan Chiang MD Other Provider Active Start: May 30, 2025 Team Status: Active Member Role/Relationship Status Dates Dr. Lizet Linares MD Primary Care Provider Active Start: May 30, 2025 Dr. Delores Moya MD Emergency Provider Active S tart: May 30, 2025 Dr. Chavez Alcala DO Admit Provider Active Start: May 30, 2025 Dr. Chavez Alcala DO Other Provider Active Start: May 30, 2025 Dr. John Shaw MD Other Provider Active Star t: May 30, 2025 Dr. Juan Chiang MD Other Provider Active Start: May 30, 2025 Dr. Austyn Patel MD Other Provider Active Sta rt: May 30, 2025 Dr. Juan Whatley MD Attending Provider Active Start: May 30, 2025 Team Status: Active Member Role/Relationship Status Dates Dr. Lizet Linares MD Primary Care Provider Active Start: May 31, 2025 Dr. Delores Moya MD Emergency Provider Active S tart: May 31, 2025 Dr. Chavez Alcala DO Admit Provider Active Start: May 31, 2025 Dr. Chavez Alcala DO Other Provider Active Start: May 31, 2025 Dr. John Shaw MD Attending Provider Active Start: May 31, 2025 Dr. John Shaw MD Other Provider Active Star t: May 31, 2025 Dr. Juan Chiang MD Other Provider Active Start: May 31, 2025 Dr. Austyn Patel MD Other Provider Active Sta rt: May 31, 2025 Team Status: Active Member Role/Relationship Status Dates Dr. Lizet Linares MD Primary Care Provider Active Start: May 31, 2025 Dr. Delores Moya MD Emergency Provider Active S tart: May 31, 2025 Dr. Chavez Alcala DO Admit Provider Active Start: May 31, 2025 Dr. Chavez Alcala DO Other Provider Active Start: May 31, 2025 Dr. John Shaw MD Other Provider Active Star t: May 31, 2025 Dr. Juan Chiang MD Other Provider Active Start: May 31, 2025 Dr. Austyn Patel MD Other Provider Active Sta rt: May 31, 2025 Dr. Juan Whatley MD Attending Provider Active Start: May 31, 2025 Team Status: Active Member Role/Relationship Status Dates Dr. Lizet Linares MD Primary Care Provider Active Start: June 01, 2025 Dr. Delores Moya MD Emergency Provider Active S tart: June 01, 2025 Dr. Chavez Alcala DO Admit Provider Active Start: June 01, 2025 Dr. Chavez Alcala DO Other Provider Active Start: June 01, 2025 Dr. John Shaw MD Attending Provider Active Start: June 01, 2025 Dr. John Shaw MD Other Provider Active Star t: June 01, 2025 Dr. Juan Chiang MD Other Provider Active Start: June 01, 2025 Dr. Juan Whatley MD Other Provider Active Star t: June 01, 2025 Team Status: Active Member Role/Relationship Status Dates Dr. Lizet Linares MD Primary Care Provider Active Start: June 01, 2025 Dr. Delores Moya MD Emergency Provider Active S tart: June 01, 2025 Dr. Chavez Alcala DO Admit Provider Active Start: June 01, 2025 Dr. Chavez Alcala DO Other Provider Active Start: June 01, 2025 Dr. John Shaw MD Other Provider Active Star t: June 01, 2025 Dr. Juan Chiang MD Other Provider Active Start: June 01, 2025 Dr. Juan Whatley MD Attending Provider Active Start: June 01, 2025 Dr. Juan Whatley MD Other Provider Active Star t: June 01, 2025 Team Status: Active Member Role/Relationship Status Dates Dr. Lizet Linares MD Primary Care Provider Active Start: June 04, 2025 Lizet NOLASCO MD Attending Provider Active Start: June 04, 2025 Team Status: Inactive Member Role/Relationship Status Dates Dr. Lizet Linares MD Primary Care Provider Active Start: June 07, 2025 End: June 07, 2025 Dr. Lizet Linares MD Referring Provider Active Start: June 07, 2025 End: June 07, 2025 Dr. Juan Whatley MD Attending Provider Active Start: June 07, 2025 End: June 07, 2025 Team Status: Active Member Role/Relationship Status Dates Dr. Lizet Linares MD Primary Care Provider Active Start: June 11, 2025 Lizet NOLASCO MD Attending Provider Active Start: June 11, 2025 Team Status: Inactive Member Role/Relationship Status Dates Dr. Lizet Linares MD Primary Care Provider Active Start: June 15, 2025 End: June 15, 2025 Dr. Lizet Linares MD Referring Provider Active Start: June 15, 2025 End: June 15, 2025 Dr. Juan Whatley MD Attending Provider Active Start: June 15, 2025 End: June 15, 2025 Team Status: Inactive Member Role/Relationship Status Dates Dr. Lizet Linares MD Primary Care Provider Active Start: May 28, 2025 End: May 28, 2025 Ana Maria Geller [employer], [employer] Attending Provider Active Start: May 28, 2025 End: May 28, 2025 Team Status: Active Member Role/Relationship Status Dates Dr. Lizet Linares MD Primary Care Provider Active Start: May 29, 2025 Dr. Delores Moya MD Emergency Provider Active S tart: May 29, 2025 Dr. Chavez Alcala DO Admit Provider Active Start: May 29, 2025 Dr. Chavez Alcala DO Other Provider Active Start: May 29, 2025 Dr. John Shaw MD Attending Provider Active Start: May 29, 2025 Dr. John Shaw MD Other Provider Active Star t: May 29, 2025 Team Status: Active Member Role/Relationship Status Dates Dr. Lizet Linares MD Primary Care Provider Active Start: May 30, 2025 Dr. Delores Moya MD Emergency Provider Active S tart: May 30, 2025 Dr. Chavez Alcala DO Admit Provider Active Start: May 30, 2025 Dr. Chavez Alcala DO Other Provider Active Start: May 30, 2025 Dr. John Shaw MD Attending Provider Active Start: May 30, 2025 Dr. John Shaw MD Other Provider Active Star t: May 30, 2025 Dr. Juan Chiang MD Other Provider Active Start: May 30, 2025 Team Status: Active Member Role/Relationship Status Dates Dr. Lizet Linares MD Primary Care Provider Active Start: May 30, 2025 Dr. Delores Moya MD Emergency Provider Active S tart: May 30, 2025 Dr. Chavez Alcala DO Admit Provider Active Start: May 30, 2025 Dr. Chavez Alcala DO Other Provider Active Start: May 30, 2025 Dr. John Shaw MD Other Provider Active Star t: May 30, 2025 Dr. Juan Chiang MD Other Provider Active Start: May 30, 2025 Dr. Austyn Patel MD Other Provider Active Sta rt: May 30, 2025 Dr. Juan Whatley MD Attending Provider Active Start: May 30, 2025 Team Status: Active Member Role/Relationship Status Dates Dr. Lizet Linares MD Primary Care Provider Active Start: May 31, 2025 Dr. Delores Moya MD Emergency Provider Active S tart: May 31, 2025 Dr. Chavez Alcala DO Admit Provider Active Start: May 31, 2025 Dr. Chavez Alcala DO Other Provider Active Start: May 31, 2025 Dr. John Shaw MD Attending Provider Active Start: May 31, 2025 Dr. John Shaw MD Other Provider Active Star t: May 31, 2025 Dr. Juan Chiang MD Other Provider Active Start: May 31, 2025 Dr. Austyn Patel MD Other Provider Active Sta rt: May 31, 2025 Team Status: Active Member Role/Relationship Status Dates Dr. Lizet Linares MD Primary Care Provider Active Start: May 31, 2025 Dr. Delores Moya MD Emergency Provider Active S tart: May 31, 2025 Dr. Chavez Alcala DO Admit Provider Active Start: May 31, 2025 Dr. Chavez Alcala DO Other Provider Active Start: May 31, 2025 Dr. John Shaw MD Other Provider Active Star t: May 31, 2025 Dr. Juan Chiang MD Other Provider Active Start: May 31, 2025 Dr. Austyn Patel MD Other Provider Active Sta rt: May 31, 2025 Dr. Juan Whatley MD Attending Provider Active Start: May 31, 2025 Team Status: Active Member Role/Relationship Status Dates Dr. Lizet Linares MD Primary Care Provider Active Start: June 01, 2025 Dr. Delores Moya MD Emergency Provider Active S tart: June 01, 2025 Dr. Chavez Alcala DO Admit Provider Active Start: June 01, 2025 Dr. Chavez Alcala DO Other Provider Active Start: June 01, 2025 Dr. John Shaw MD Attending Provider Active Start: June 01, 2025 Dr. John Shaw MD Other Provider Active Star t: June 01, 2025 Dr. Juan Chiang MD Other Provider Active Start: June 01, 2025 Dr. Juan Whatley MD Other Provider Active Star t: June 01, 2025 Team Status: Active Member Role/Relationship Status Dates Dr. Lizet Linares MD Primary Care Provider Active Start: June 01, 2025 Dr. Delores Moya MD Emergency Provider Active S tart: June 01, 2025 Dr. Chavez Alcala DO Admit Provider Active Start: June 01, 2025 Dr. Chavez Alacla DO Other Provider Active Start: June 01, 2025 Dr. John Shaw MD Other Provider Active Star t: June 01, 2025 Dr. Juan Chiang MD Other Provider Active Start: June 01, 2025 Dr. Juan Whatley MD Attending Provider Active Start: June 01, 2025 Dr. Juan Whatley MD Other Provider Active Star t: June 01, 2025 Team Status: Active Member Role/Relationship Status Dates Dr. Lizet Linares MD Primary Care Provider Active Start: June 04, 2025 Lizet NOLASCO MD Attending Provider Active Start: June 04, 2025 Team Status: Inactive Member Role/Relationship Status Dates Dr. Lizet Linares MD Primary Care Provider Active Start: June 07, 2025 End: June 07, 2025 Dr. Lizet Linares MD Referring Provider Active Start: June 07, 2025 End: June 07, 2025 Dr. Juan Whatley MD Attending Provider Active Start: June 07, 2025 End: June 07, 2025 Team Status: Active Member Role/Relationship Status Dates Dr. Lizet Linares MD Primary Care Provider Active Start: June 11, 2025 Lizet NOLASCO MD Attending Provider Active Start: June 11, 2025 Team Status: Inactive Member Role/Relationship Status Dates Dr. Lizet Linares MD Primary Care Provider Active Start: June 15, 2025 End: June 15, 2025 Dr. Lizet Linares MD Referring Provider Active Start: June 15, 2025 End: June 15, 2025 Dr. Juan Whatley MD Attending Provider Active Start: June 15, 2025 End: June 15, 2025 Team Status: Inactive Member Role/Relationship Status Dates Dr. Lizet Linares MD Primary Care Provider Active Start: June 05, 2025 End: June 05, 2025 Dr. Lizet Linares MD Attending Provider Active Start: June 05, 2025 End: June 05, 2025 Team Status: Inactive Member Role/Relationship Status Dates Dr. Lizet Linares MD Primary Care Provider Active Start: June 07, 2025 End: June 07, 2025 Dr. Lizet Linares MD Referring Provider Active Start: June 07, 2025 End: June 07, 2025 Dr. Juan Whatley MD Attending Provider Active Start: June 07, 2025 End: June 07, 2025 Team Status: Active Member Role/Relationship Status Dates Dr. Lizet Linares MD Primary Care Provider Active Start: June 11, 2025 Lizet NOLASCO MD Attending Provider Active Start: June 11, 2025 Team Status: Inactive Member Role/Relationship Status Dates Dr. Lizet Linares MD Primary Care Provider Active Start: June 15, 2025 End: June 15, 2025 Dr. Lizet Linares MD Referring Provider Active Start: June 15, 2025 End: June 15, 2025 Dr. Juan Whatley MD Attending Provider Active Start: June 15, 2025 End: June 15, 2025 FOR RECORDS PERTAINING TO PATIENTS WHO [...] BE BASED ON THE PRIMARY CLINICAL RECORDS. [facility] provides no warranty or guarantee of the accuracy or completeness of information in this document.
[2025-06-28 08:01] LABS: Hematocrit 31.3 % (37-47); Hemoglobin 9.9 g/dL (12.0-15.0); Immature Granulocytes Count 0.040 X10^3/uL (0.0-0.0); Mean Corp Hgb Conc 31.6 g/dL (32-36); Mean Corpuscular Volume 86.5 fL (81-99); Mean Platelet Vol. 10.0 fl (6.2-12.0); NRBC Flagged by Analyzer 0 % (0-5); Platelet Count 378 K/mm3 (150-450); RBC Distribution Width CV 15.1 % (11.6-14.6); RBC Distribution Width SD 48.3 fl (35.1-43.9); Red Blood Count 3.62 M/mm3 (4.2-5.4); White Blood Count 8.0 K/mm3 (4.4-11.0)
[2025-06-28 08:21] LABS: Anion Gap 11 (5-15); BUN 29 mg/dL (4-19); BUN/Creat Ratio 21.2 RATIO (10-20); Calcium,Total 8.2 mg/dL (7.6-11.0); Carbon Dioxide 23.4 mmol/L (21.0-32.0); Chloride 100 mmol/L (98-108); Glucose 342 mg/dL (70-99); Potassium 4.2 mmol/L (3.3-5.1)
== END ==
LOC: OLS.WHLEAS 05:00
PROVIDERS: PCP Internal Medicine; Visit Provider Internal Medicine
DX: E11.22 Type 2 diabetes mellitus with diabetic chronic kidney disease (principal); N18.9 Chronic kidney disease, unspecified
CPT/HCPCS: 36415; 80048; 85025

== ENCOUNTER → 2025-07-06 05:00 | Outpatient (REF) | payer MEDICARE, MEDICAID, SELFPAY | LOC: OLS.WHLEAS 05:00 | PROVIDERS: PCP Internal Medicine; Visit Provider Internal Medicine | DX: E11.22 Type 2 diabetes mellitus with diabetic chronic kidney disease (principal); N18.31 Chronic kidney disease, stage 3a; I12.9 Hypertensive chronic kidney disease with stage 1 through stage 4 chronic kidney disease, or unspecified chronic kidney disease; E03.9 Hypothyroidism, unspecified; E11.42 Type 2 diabetes mellitus with diabetic polyneuropathy | CPT/HCPCS: 36415; 83036 ==

== ENCOUNTER → 2025-07-06 | Outpatient (CLI) | payer MEDICARE, SELFPAY ==
--- NOTE | 2025-07-06 13:09 | MRI_ITS ---
PROCEDURE: SPINE LUMBAR (ROUTINE) 07/06/2025 REASON FOR EXAM: RADICULOPATHY TECHNIQUE: Procedure Code: MRISPL Modality: MR Procedure: SPINE LUMBAR (ROUTINE) COMPARISON: March 24, 2024 FINDINGS: Vertebrae: No fracture. Alignment: Normal Conus Medullaris: Terminates at T12. Normal signal. L1-2: Normal. L2-3: Mild, diffuse disc bulge is present and asymmetric to the left. Posterior annular defect at the level of the foramen and extraforaminal region on the left measuring 6 mm. The bulging disc may contact the traversing L3 nerve root on the left at the sub foraminal zone. Additionally there is some contact of the exiting nerve root from the disc with the left L2 nerve root. Mild thickening of the ligamentum flavum. No central stenosis. Similar to prior. L3-4: Mild, diffuse disc bulge. Mild thickening of the ligamentum flavum. No central stenosis or exit foraminal narrowing. L4-5: Mild loss of disc height. Mild, diffuse disc bulge. Mild thickening of ligamentum flavum. No central stenosis. There is possibly contact of the bulging disc with the exiting nerve roots. Correlate with L4 radiculopathy. L5-S1: Mild, diffuse disc bulge. [id number]-left facet hypertrophy. No central stenosis or exit foraminal narrowing. MRI/Spine Lumbar (Routine) IMPRESSION: No significant change. See above descriptions. Disc disease greatest at L2/3 and L4/5. Reading Location: [id number]
== END | disposition home or self-care (01) ==
LOC: MRI 12:55
PROVIDERS: PCP Internal Medicine; Referring Provider Anesthesiology Pain Medicine; Visit Provider Anesthesiology Pain Medicine
DX: M54.16 Radiculopathy, lumbar region (principal)
CPT/HCPCS: 72148

== ENCOUNTER → 2025-07-26 05:00 | Outpatient (REF) | payer MEDICARE, MEDICAID, SELFPAY ==
[2025-07-26 09:09] LABS: Anion Gap 13 (5-15); BUN 26 mg/dL (4-19); BUN/Creat Ratio 22.4 RATIO (10-20); Calcium,Total 9.0 mg/dL (7.6-11.0); Carbon Dioxide 24.9 mmol/L (21.0-32.0); Chloride 97 mmol/L (98-108); Glucose 213 mg/dL (70-99); Potassium 3.9 mmol/L (3.3-5.1)
== END ==
LOC: OLS.WHLEAS 05:00
PROVIDERS: PCP Internal Medicine; Visit Provider Nurse Practitioner Adult Health
DX: E11.22 Type 2 diabetes mellitus with diabetic chronic kidney disease (principal); N18.31 Chronic kidney disease, stage 3a; E11.42 Type 2 diabetes mellitus with diabetic polyneuropathy; E03.9 Hypothyroidism, unspecified; I12.9 Hypertensive chronic kidney disease with stage 1 through stage 4 chronic kidney disease, or unspecified chronic kidney disease
CPT/HCPCS: 36415; 80048; 83036

== ENCOUNTER → 2025-07-26 | Outpatient (CLI) | payer MEDICARE, MEDICAID, SELFPAY ==
--- NOTE | 2025-07-30 16:14 | STRESSREP ---
Stress Test Report Pharmacologic myocardial perfusion stress test. 60-year-old lady with a history of chest pain. Resting EKG demonstrates normal sinus rhythm with a rate of 75 bpm. Resting blood pressure is 132/68 mmHg. 0.4 mg of regadenoson was infused per usual protocol followed by rapid intravenous saline flush injection. Continuous EKG monitoring was performed. The maximum heart rate was 84 bpm which was 53% of max impacted heart rate the maximum workload was 1 metabolic equivalent. At rest there were no ST or T wave changes noted to suggest ischemia and at peak infusion nonspecific ST changes were noted which did not meet the criteria for ischemia. No clinical angina is noted. The final blood pressure was 130/60 mmHg. Myocardial perfusion protocol. 13.1 mCi of technetium 99m sestamibi was injected at rest. 0.4 mg of regadenoson was infused per usual protocol. At peak infusion 37 point mCi of technetium 99m sestamibi was injected stress images were obtained stress and rest images were reconstructed and compared in the short axis vertical long and horizontal long axis. Gated images were also obtained. Perfusion SPECT analysis: Review of the stress images demonstrate normal uptake of tracer noted in all areas of the myocardium. The resting images similar demonstrated normal uptake of tracer noted in all areas of the myocardium. No areas of reversibility are noted to suggest ischemia and no previous infarct is noted. Gated SPECT analysis: The gated ejection fraction is 75%. Conclusion: Normal pharmacologic myocardial perfusion stress test. Preserved ejection fraction.
== END | disposition home or self-care (01) ==
PROVIDERS: PCP Internal Medicine; Referring Provider Physician Assistant Medical; Visit Provider Physician Assistant Medical
DX: R07.9 Chest pain, unspecified (principal); I25.10 Atherosclerotic heart disease of native coronary artery without angina pectoris
CPT/HCPCS: 78452; 93017; A9500; A4216; J2785

== ENCOUNTER → 2025-09-03 05:00 | Outpatient (REF) | payer MEDICARE, MEDICAID, SELFPAY ==
[2025-09-03 08:34] LABS: AST(SGOT) 20 U/L (<=31); Alanine Aminotransfer ALT/SGPT 17 U/L (<=34); Albumin, Serum 3.2 g/dL (3.4-4.8); Alkaline Phosphatase 35 U/L (35-104); Bilirubin, Direct 0.20 mg/dL (0.00-0.30); Globulin 2.7 g/dL (2.2-4.2)
== END ==
LOC: OLS.WHLEAS 05:00
PROVIDERS: PCP Internal Medicine; Visit Provider Nurse Practitioner Adult Health
DX: E11.22 Type 2 diabetes mellitus with diabetic chronic kidney disease (principal); N18.31 Chronic kidney disease, stage 3a; E11.42 Type 2 diabetes mellitus with diabetic polyneuropathy; I10 Essential (primary) hypertension; E03.9 Hypothyroidism, unspecified
CPT/HCPCS: 36415; 80076

== ENCOUNTER → 2025-09-12 05:00 | Outpatient (REF) | payer MEDICARE, MEDICAID, SELFPAY ==
--- OUTSIDE RECORDS SUMMARY | 2025-09-12 04:29 | XMS RPT_ITS | CCD ---
Author Organization [facility] Care Team Providers Care Senior Business Manager Name Role Phone SIXTO CALIXTO Unavailable [...] Care Provider Dr. Kelechi Geller Emergency Provider [phone] Dr. Kathia Shine Admit Provider Dr. Kathia [...] Dr. Ganesh Garcia Primary Care Provider Yimi MOTOR BLOCK MECHANIC, JED-C Ana Maria Attending Provider Unav Dr. Scott Salamanca Referring Provider Dr. Tip Hamilton Emergency Provider Serene, Dr. Hansa Abdullahi Admit Provider Dr. Hansa Cast Other Provider Dr. Júnior Lombardo Attending Provider Dr. Júnior Lombardo Other Provider Miriam Cote Attending Provider Unavailable Dr. Ganesh Garcia Referring Provider Rakesh ADKINS, JED-Zeus Pineda Attending Provider Dr. Jarred Lopez Primary Care Provider [phone] Dr. Ramez Prieto Other Provider Dr. Ramez [...] Provider Dr. Ganesh Garcia Referring Provider Rakesh MOTOR BLOCK MECHANIC, MOTOR BLOCK MECHANIC-C Miriam Attending Provider Dr. Ganesh Garcia Primary Care Provider Dr. Ganesh Garcia Primary Care Provider Dr. Ganesh Garcia Referring Provider Rakesh MOTOR BLOCK MECHANIC, MOTOR BLOCK MECHANIC-C Miriam Attending Provider Dr. Lizet Linares Primary Care Provider [phone] Yimi MOTOR BLOCK MECHANIC, MOTOR BLOCK MECHANIC-C Ana Maria Attending Provider Cynthiav Dr. Lizet Coronel Attending Provider [phone] Yimi OLS, MOTOR BLOCK MECHANIC-C Ana Maria Attending Provider [phone] Unavailable Primary Care Provider [facility]. Lizet Chung Primary Care Provider Yimi MOTOR BLOCK MECHANIC, MOTOR BLOCK MECHANIC-C Ana Maria Attending Provider Unav Dr. Lizet Coronel Attending Provider [phone] Yimi NOLASCO, MOTOR BLOCK MECHANIC-C Ana Maria Attending Provider [phone] Dwayne Lopez MD Primary Care Provider Dr. Lizet Linares Primary Care Provider [phone] Yimi MOTOR BLOCK MECHANIC, MOTOR BLOCK MECHANIC-C Ana Maria Attending Provider Unav Dr. Lizet Coronel Attending Provider [phone] Dr. Ganesh Garcia Referring Provider Rakesh MOTOR BLOCK MECHANIC, MOTOR BLOCK MECHANIC-C Miriam Attending Provider Dr. Lizet Linares Primary Care Provider [phone] Dr. Lizet Linares Attending Provider [phone] Yimi MOTOR BLOCK MECHANIC, MOTOR BLOCK MECHANIC-C Ana Maria Attending Provider Unav Dr. Jarred Avila Primary Care Provider [phone] Dr. Zack Choi Emergency Provider Dr. John Shaw Admit Provider Unavailable Colin, Dr. Lopez Attending Provider Unavailable Colin, Dr. Lopez Other Provider Unavailable David, Dr. Yoder Attending Provider Terlula, Dr. Yoder Other Provider Dr. Jarred Lopez Primary Care Provider [phone] Dr. Zack Choi Emergency Provider Colin, Dr. [...] Dr. Jarred Lopez Primary Care Provider [phone] Dr. Zack Choi Emergency Provider Dr. John [...] Provider Dr. Ana Rivera Other Provider Yimi MOTOR BLOCK MECHANIC, MOTOR BLOCK MECHANIC-C Ana Maria Attending Provider Dr. Lizet Linares Attending Provider Dr. Chavez Alcala Referring Provider Dwayne Lopez MD Primary Care Provider Unavailable Primary Care Provider Unavailabl e Dwayne Lopez MD Primary Care Provider Podlogar GAS PLANT REPAIRER.DEYANIRA, Jesica Unavailable Knoble GAS PLANT REPAIRER.LOGGER ALL ROUND, Annabel Unavailable Dr. Lizet Linares MD Primary [...] Dr. Zack Choi DO Attending Provider Kngrisel GAS PLANT REPAIRER.LOGGER ALL ROUND, Annabel Unavailable Dr. Lizet Linares MD Primary Care Provider Milagros SANTANA Dr. Efewongbe Attending Provider [phone] Milagros SANTANA, Lizet Attending Provider Claude Morejon Attending Provider Jimbo TIRADO, Dr. Dixon Attending Provider Dr. Zack Choi DO Emergency Provider Tickwinsome MOTOR BLOCK MECHANIC-C, Ana Maria Attending Provider Milagros SANTANA, Dr. Hinds Referring Provider Shonda Glover Attending Provider [place]ickton MOTOR BLOCK MECHANIC-C, Ana Maria Attending Provider [phone] Lizet Linares MD Referring Provider Annabel Mack APRN.CNP Unavailable Milagros SANTANA, Dr. Hinds Primary Care Provider Milagros SANTANA, Dr. Hinds Attending Provider [phone] Milagros SANTANA, Lizet Attending Provider UnavailClaude Perez Attending Provider Dr. Lizet Linares MD Primary Care Provider Yimi MOTOR BLOCK MECHANIC-C, Ana Maria Attending Provider Dr. Lizet Linares MD Primary Care Provider Milagros SANTANA, Dr. Hinds Attending Provider [phone] Dr. Raúl Alejo DO Emergency Provider Griffin SANTANA, Dr. Estrella Emergency Provider Unavailab brenda Alcala DO, Dr. Byrne Admit Provider Dr. Chavez Alcala DO Attending Provider Dr. Lizet Linares MD Primary Care Provider [place]ickton MOTOR BLOCK MECHANIC-C, Ana Maria Attending Provider [place]ickton MOTOR BLOCK MECHANIC-C, Ana Maria Attending Provider Lizet Linares MD Attending Provider Unavailjosé manuel Portere MD, Lizet Referring Provider Varun Linares MD, Dr. Hinds Attending Provider [phone] Claude Cain Attending Provider Brenda TIRADO, Dr. Olsen Emergency Provider Griffin SANTANA, Dr. Estrella Emergency Provider Unavailab brenda Alcala DO, Dr. Byrne Admit Provider Fredrick TIRADO, Dr. Byrne Other Provider Colin SANTANA, Dr. Lopez Attending Provider Varun Chiang MD, Dr. Martinez Other Provider Chacorta SANTANA, Dr. Martinez Other Provider Coiln SANTANA, Dr. Lopez Other Provider Unavailable Jorge SANTANA, Dr. Mcdonald Other Provider Chacorta SANTANA, Dr. Martinez Attending Provider Milagros SANTANA, Dr. Hinds Primary Care Provider Fredrick TIRADO, Dr. Byrne Other Provider Colin SANTANA, Dr. Lopez Attending Provider Varun Chiang MD, Dr. Martinez Other Provider Chacorta SANTANA, Dr. Martinez Other Provider Colin SANTANA, Dr. Lopez Other Provider Unavailable Jorge SANTANA, Dr. Mcdonald Other Provider Chacorta SANTANA, Dr. Martinez Attending Provider Brenda TIRADO, Dr. Olsen Attending Provider Milagros SANTANA, Dr. Hinds Referring Provider [phone] Milagros SANTANA, Dr. Hinds Primary Care Physician Milagros SANTANA, Dr. Hinds Attending Physician [phone] Milagros SANTANA, Lizet Attending Physician Unavail Claude Moran Attending Physician Ana Maria Moise Attending Physician Brenda TIRADO, Dr. lOsen Attending Physician Brenda TIRADO, Dr. Olsen Emergency Department Physician Griffin SANTANA, Dr. Estrella Emergency Department Physici an Unavailable Fredrick TIRADO, Dr. Byrne Admitting Physician Fredrick TIRADO, Dr. Byrne Nurse Practitioner Colin SANTANA, Dr. Lopez Attending Physician Unavail ariana Chiang MD, Dr. Martinez Nurse Practitioner Chacorta SANTANA, Dr. Martinez Nurse Practitioner Colin SANTANA, Dr. Lopez Nurse Practitioner Unavailjosé manuel Shaw MD, Dr. Lopez Referring Provider Unavailjosé manuel Patel MD, Dr. Mcdonald Nurse Practitioner Chacorta SANTANA, Dr. Martinez Attending Physician Myra SANTANA, Dr. Phillips Attending Physician Myra SANTANA, Dr. Phillips Referring Provider Danya SANTANA, Dr. Crane Attending Physician Milagros SANTANA, Dr. Hinds Primary Care Physician Milagros SANTANA, Dr. Hinds Attending Physician Yimi ADKINS-CAna Maria Attending Physician Shonda Glover Attending Physician Shonda Glover Referring Provider Milagros SANTANA, Dr. Hinds Primary Care Physician Lizet Linares MD Attending Physician Unavail able Yimi ADKINS-CAna Maria Attending Physician Shonda Glover Nurse Practitioner Grupo SANTANA, Dr. Callejas Attending Physician Lizet Rock Attending Unavailabl e Oleghe, Efewongbe Primary Care Unavailable Tickton Ana Maria NOLASCO Attending Unavailable Oleghe, Efewongbe Primary Care Unavailable Oleghe GAURAV, Lizet Attending Unavailabl e Oleghe OLS, Efewongbe Referring Unavailabl e Oleghe, Efewongbe Primary Care Unavailable Oleghe, Efewongbe Primary Care Unavailable Oleghe OLS, Efewongbe Attending Unavailabl e [place]ickton MOTOR BLOCK MECHANIC, Ana Maria Attending Unavailable Oleghe, Efewongbe Primary Care Unavailable Oleghe, Efewongbe Primary Care Unavailable [place] MOTOR BLOCK MECHANIC, Ana Maria Attending Unavailable Oleghe, Efewongbe Primary Care Unavailable Oleghe OLS, Efewongbe Attending Unavailabl e [place]ickton OLS, Ana Maria Attending Unavailable Oleghe, Efewongbe Primary Care Unavailable Oleghe OLS, Efewongbe Attending Unavailabl e Oleghe, Efewongbe Primary Care Unavailable Oleghe, Efewongbe Primary Care Unavailable Oleghe OLS, Efewongbe Attending Unavailabl e Oleghe, Efewongbe Primary Care Unavailable Oleghe OLS, Efewongbe Attending Unavailabl e Oleghe, Efewongbe Primary Care Unavailable Oleghe OLS, Efewongbe Attending Unavailabl e Oleghe OLS, Efewongbe Referring Unavailabl e Oleghe, Efewongbe Referring Unavailable Oleghe, [...] e Oleghe, Efewongbe Primary Care Unavailable Chavez Alcaal Consulting Unavailable John Shaw Attending Unavailable Chavez Alcala Admitting Unavailable Oleghe, Efewongbe Primary Care Unavailable Juan Chiang Consulting Unavailable Juan Whatley Consulting Unavailable Oleghe, Efewongbe Primary Care Unavailable Oleghe OLS, Efewongbe Attending Unavailabl e Oleghe, Efewongbe Primary Care Unavailable Oleghe, Efewongbe Attending Unavailable Oleghe, Efewongbe Primary Care Unavailable Oleghe OLS, Efewongbe Attending Unavailabl e Yimi MOTOR BLOCK MECHANICAna Maria Attending Unavailable Oleghe, Efewongbe Primary Care Unavailable Oleghe, Efewongbe Primary Care Unavailable Oleghe, Efewongbe Attending Unavailable Claude Cain Attending Unavailable Oleghe, Efewongbe Primary Care Unavailable Chavez Alcala Consulting Unavailable Chavez Alcala Admitting Unavailable Juan Whatley Attending Unavailable Oleghe, Efewongbe Primary Care Unavailable Juan Chiang Consulting Unavailable Austyn Patel Consulting Unavailable John Shaw Consulting Unavailable John Shaw Attending Unavailable John Shaw Referring Unavailable Chavez Alcala Attending Unavailable Oleghe, Efewongbe Referring Unavailable Sumit Urbina Attending Unavailable Oleghe, Efewongbe Primary Care Unavailable Sumit Urbina Attending Unavailable Oleghe, Efewongbe Referring Unavailable Oleghe, Efewongbe Primary Care Unavailable Ana Maria Geller NP Attending Unavailable Oleghe, Efewongbe Primary Care Unavailable Yimi MOTOR BLOCK MECHANICAna Maria Attending Unavailable Oleghe, Efewongbe Primary Care Unavailable Oleghe, Efewongbe Attending Unavailable Oleghe, Efewongbe Primary Care Unavailable Oleghe, Efewongbe Primary Care Unavailable Claude Cain Attending Unavailable Oleghe, Efewongbe Primary Care Unavailable Ana Maria Geller NP Attending Unavailable Oleghe, Efewongbe Referring Unavailable Oleghe, Efewongbe Primary Care Unavailable Shonda Glover Attending Unavail able Ana Maria Geller NP Attending Unavailable Oleghe, Efewongbe Primary Care Unavailable Yimi MOTOR BLOCK MECHANICAna Maria Attending Unavailable Oleghe, Efewongbe Primary Care Unavailable Oleghe, Efewongbe Attending Unavailable Oleghe, Efewongbe Primary Care Unavailable Oleghe, Efewongbe Primary Care Unavailable Zack Choi Attending Unavailable Oleghe OLS, Efewongbe Attending Unavailabl [...] Unavailabl e Oleghe, Efewongbe Primary Care Unavailable Shonda Glover Referring Unavail able Shonda Glover Attending Unavail able Oleghe, Efewongbe Primary Care Unavailable Juan Whatley Consulting Unavailable Myra Ayman Referring Unavailable Myra Ayman Attending Unavailable Oleghe, Efewongbe Primary Care Unavailable Oleghe OLS, Efewongbe Attending Unavailabl e Oleghe, Efewongbe Primary Care Unavailable Oleghe, Efewongbe Primary Care Unavailable Oleghe OLS, Efewongbe Attending Unavailabl e Oleghe, Efewongbe Primary Care Unavailable Oleghe OLS, Efewongbe Attending Unavailabl e Tickton OLS, Ana Maria Attending Unavailable Oleghe, Efewongbe Primary Care Unavailable Oleghe, Efewongbe Primary Care Unavailable Oleghe OLS, Efewongbe Attending Unavailabl e Tickton MOTOR BLOCK MECHANIC, Ana Maria Attending Unavailable Oleghe, Efewongbe Primary Care Unavailable [place] MOTOR BLOCK MECHANIC, Ana Maria Attending Unavailable Oleghe, Efewongbe Primary Care Unavailable [place] MOTOR BLOCK MECHANIC, Ana Maria Attending Unavailable Oleghe, Efewongbe Primary Care Unavailable Juan Whatley Attending Unavailable Oleghe, Efewongbe Referring Unavailable Oleghe, Efewongbe Primary Care Unavailable Juan Whatley Attending Unavailable Oleghe, Efewongbe Referring Unavailable Oleghe, Efewongbe Primary Care Unavailable [place] MOTOR BLOCK MECHANIC, Ana Maria Attending Unavailable Oleghe, Efewongbe Primary Care Unavailable [place] MOTOR BLOCK MECHANIC, Ana Maria Attending Unavailable Oleghe, Efewongbe Primary Care Unavailable Oleghe, Efewongbe Primary Care Unavailable Shonda Glover Referring Unavail able Shonda Glover Consulting Unavail able Júnior Lombardo Attending Unavailable Oleghe, Efewongbe Primary Care Unavailable [place] MOTOR BLOCK MECHANIC, Ana Maria Attending Unavailable Oleghe, Efewongbe Primary Care Unavailable Oleghe, Efewongbe Attending Unavailable Oleghe, Efewongbe Referring Unavailable Oleghe, Efewongbe Primary Care Unavailable Rosa Maria Hagan Attending Unavailable Oleghe, Efewongbe Primary Care Unavailable Ana Maria Geller NP Attending Unavailable Oleghe, Efewongbe Primary Care Unavailable Oleghe, Efewongbe Attending Unavailable Oleghe OLS, Efewongbe Attending Unavailabl e Oleghe, Efewongbe Primary Care Unavailable Allergies Allergy Classification Reported Allergen(s) Allergy Type Date of Onset Reaction(s) Facility (20 sources) ciprofloxacin; Translations: [CIPROFLOXACIN] Drug Allergy 8 Swelling [facility] Repository (20 sources) codeine; Translations: [CODEINE] Drug Allergy 4 Hives, Itching [facility] Repository (20 sources) ibuprofen; Translations: [IBUPROFEN] Drug Allergy 7 [facility] Repository (20 sources) metFORMIN; Translations: [METFORMIN] Drug Allergy 7 Intolerance [facility] Repository (20 sources) naproxen; Translations: [NAPROXEN] Drug Allergy 7 [facility] Repository (20 sources) Penicillins; Translations: [PENICILLINS] Propensity to adverse reactions (disorder) 7 [facility] Repository (20 sources) traMADol; Translations: [TRAMADOL HCL] Drug Allergy 7 [facility] Repository (1 source) Ciprofloxacin Drug Allergy 7 [facility] Work Phone: (1 source) Ketorolac Drug Allergy itching [facility] Work Phone: (1 source) Naproxen Drug Allergy 0 eyes swell, hives [facility] Work Phone: (1 source) Penicillin V Drug Allergy hives [facility] Work Phone: (1 source) traMADol Drug Allergy face swells [facility] Work Phone: (20 sources) celecoxib Drug Allergy [address] [facility] (20 sources) Ciprofloxacin; Translations: [ciprofloxacin HCl] Drug Allergy 2 Swelling [facility] (20 sources) Ketorolac Drug Allergy [address] [facility] Work Phone: (11 sources) tirzepatide; Translations: [tirzepatide] Propensity to adverse reactions 5 [facility] (1 source) celecoxib Drug Allergy 5 [facility] Repository (1 source) Ketorolac Drug Allergy 5 [facility] Repository Medications Current Medications Medication Drug Class(es) [...] times daily as needed for pain Hydrocodone-Acetaminophen (Enterprise 5-325 Tablet) 1 EACH tablet Discontinued 1 [...] 22, 2016 7:08am acetaminophen 325 mg / oxyCO DONE hydrochloride 5 mg oral tablet (20 sources) Opioid Agonist Start: 07-17-2025 End: 08-13-2025 Start: 05-26-2025 End: 06-01-2025 take 1 tablet by mouth every six hours as needed for pain Oxycodone-Acetaminophen 5-325 mg tablet Active 1 {tbl} PO EVERY 6 HOURS NEEDED as needed for Pain 12 3 0 June 01, 2025 Infected lip laceration Laceration without foreign body of lip, initial encounter Local infection of the skin and subcutaneous tissue, unspecified Start: 05-23-2025 End: 07-11-2025 Start: 05-23-2025 End: 06-01-2025 Oxycodone-Acetaminophen 5-32 5 [...] 08, 2019 12:00am January 11, 2019 12:08am apixaban 5 mg oral tablet (20 sources) [...] style lite Insu linx 168 hr buprenorphine 0.005 m g/hr transdermal system (20 sources) Partial Opioid Agonist Start: 08-13-2025 Start: 08-19-2024 End: 01-30-2025 Start: 03-24-2024 End: 08-19-2024 carboxymethylcellulose sodium 10 mg/ml ophthalmic solution (20 sources) Start: 01-30-2025 cephalexin 500 mg oral capsule (8 sources) [...] CELEXA TABS as directed CITALOPRAM HYDROBROMIDE TABS [id number] Angelika De La Torre LPN cyclobenzaprine hydrochloride [...] three times daily as needed CYCLOBENZAPRINE HCL [id number] Yaw Cabrera MD docusate sodium 50 mg / wanda ragsdale, long term 8.6 mg oral tablet (20 sources) Start: [...] Drug Start: 06-01-2025 Start: 12-10-2017 End: 12-20-2017 dulaglutide (TRULICITY) 3 mg/0.5 mL pen injector [...] Start: 08-10-2023 take 2 spray(s) by m nahed once daily fluticasone (FLONASE) 50 mcg/actuation nasal spray Use 2 Sprays in each nostril once daily. Rinse mouth after use. 1 Each 08/10/2023 Active Start: 03-12-2010 End: 07-28-2017 take 2 spray(s) nasal route once daily FLONASE 50 MCG/ACT SUSP 2spray/nostril daily FLUTICASONE PROPIONATE [id number] Angelika De La Torre LPN Comment on [...] 50 units at bedtime INSULIN GLARGINE SOLN [id number] Brenda Arthur MD Start: 03-10-2010 LANTUS SOLOSTA R SOPN 42 units at bedtimes INSULIN GLARGINE SOLN [id number] Brenda Arthur MD LANTUS SOLN 42 u nits at bedtime INSULIN GLARGINE SOLN [id number] Brenda Arthur MD LANTUS SOLOSTAR SOPN 32 units at bedtimes INSULIN GLARGINE SOLN [id number] Beth Doyle MA Comment on above: Inject 42 Units subc utaneously daily at bedtime. Inject 60 Units subc utaneously daily at bedtime. Insulin Glargine-Yfgn (20 sources) Start: 06-01-2025 Start: 08-19-2024 End: 06-01-2025 Start: 01-05-2024 End: 08-19-2024 Start: 01-05-2024 End: 08-19-2024 Start: 11-24-2023 End: 01-05-2024 Start: 11-24-2023 End: 01-05-2024 Start: 09-09-2022 End: 11-19-2023 Insulin Glargine-Yfgn 100 [...] SC DAILY 0 March 24, 2022 12:00am Insulin Glargine-Yfgn (4 sources) Start: 11-24-2023 Insulin Glargi ne-Yfgn Active 15 [...] injector (20 sources) Insulin Analog Start: 06-01-2025 End: 07-17-2025 Start: 06-01-2025 Insulin Lispro (Humalog Kwikpen Insulin) [...] SOLN a s directed INSULIN LISPRO SOLN [id number] Angelika De La Torre LPN insulin lispro [...] SYNTHROID TABS as directed LEVOTHYROXINE SODIUM TABS [id number] Angelika De La Torre LPN Start: 02-22-2015 End: 03-19-2016 Start: 08-14-2010 End: 07-28-2017 take 1 tablet by mouth once daily LEVOTHYROXINE SODIUM 75 MCG TABS One tablet by mouth daily LEVOTHYROXINE SODIUM [id number] Brenda Arthur MD Comment on above: Take [...] 58.2 mg/ml oral solution (20 sources) Start: 08-19-2024 magnesium hydroxide 80 mg/ml oral suspension (18 sources) Start: 08-19-2024 Start: 08-19-2024 take 1 mL by mouth o nce daily as needed for constipation Magnesium Hydroxide (Dulcolax (Magnesium Hydroxide)) 400 mg/5 mL suspension Active 30 mL PO DAILY as needed for constipation August 19, 2024 12:00am melatonin 3 mg oral tablet (20 sources) Start: 11-24-2023 Start: 11-24-2023 take 1 tablet by dmitry at bedtime as needed Melatonin 3 mg Tablet Active 3 mg PO AT BEDTIME NEEDED as needed for Insomnia 0 0 November 24, 2023 1:00am Start: 11-24-2023 24 hr metoprolol succinate 2 5 mg extended release oral tablet (20 sources) beta-Adrenergic Jorden Start: 05-21-2022 Start: 03-10-2010 End: 07-28-2017 METOPROLOL TARTRATE 25 MG TA BS 1/2 tablet orally twice daily METOPROLOL TARTRATE [id number] Angelika De La Torre LPN nitroglycerin 0.4 [...] Disp Un it Discontinued 0 .ROUTE .MEDSUPPLY [facility] June 23, 2021 12:00am November 24, 2023 3:13pm As directed Start: 06-23-2021 End: 11-24-2023 Pen Needle,Diabetic, Disp Un it Discontinued 0 .ROUTE .MEDSUPPLY June 22, 2021 11:00pm November 24, 2023 2:13pm As directed Start: 06-23-2021 Pen Needle,Diamond betic, Disp Unit Active 0 .ROUTE .MEDSUPPLY 100 June 22, 2021 11:00pm As directed Start: 06-23-2021 Pen Needle,Diamond betic, Disp Unit Active 0 .ROUTE .MEDSUPPLY 100 June 23, 2021 12:00am As directed phenazopyridine hydrochloride 200 mg oral tablet (4 sources) Start: 10-09-2022 take 1 tablet by mouth three times daily Phenazopyridine (Pyridium) 200 mg tablet Active 200 MG PO THREE TIMES A DAY 6 October 09, 2022 12:00am promethazine hydrochloride 25 mg oral tablet (20 sources) Phenothiazine Start: 06-20-2024 12 hr ranolazine 500 mg extended release [...] Take 1 tablet by dmitry once daily. Tirzepatide (5 sources) Start: 06-07-2025 (20 sources) Start: 06-07-2025 Start: 06-01-2025 Start: [...] daily as needed for anxiety attacks ALPRAZOLAM [id number] Beth K Yanira MA Alum-Mag Hydroxide-Simeth (Mylanta [...] 23, 2022 11:00pm November 19, 2023 10:26am aluminum hydroxide 80 mg/ml / magnesium hydroxide 80 mg/ml / simethicone 8 mg/ml oral suspension (20 sources) Start: 04-24-2022 End: 11-19-2023 Start: 04-24-2022 take 1 mL by mouth e very four hours Alum-Mag Hydroxide-Simeth (Mylanta Maximum Strength) 400-400-40 mg/5 mL Suspension Active 15 ML PO Q4H April 24, 2022 12:00am Start: 04-24-2022 aspirin 81 mg delayed release oral tablet (20 sources) Platelet Aggregation Inhibitor, Nonsteroidal Anti-inflammatory Drug Start: 05-21-2022 End: 11-19-2023 Start: 06-29-2019 aspirin 81 mg chewable tablet DAILY@0800 06/29/2019 Active End: 07-28-2017 take 1 tablet by mouth once daily ASPIRIN LOW DOSE 81 MG TABS one tablet by mouth daily ASPIRIN [id number] Brenda Arthur MD Comment on above: DAILY@0800 azithromycin 250 mg oral tablet (1 source) Macrolide Antimicrobial Start: 07-28-20 AZITHROMYCIN 250 MG TABS 2 tablets today, then 1 tablet daily on days 2 through 11 AZITHROMYCIN [id number] Michael REYNOLDS busPIRone hydrochloride 10 mg oral tablet (2 sources) Start: 03-10-20 End: 08-14-20 take 1 tablet by mouth twice daily BUSPAR 10 MG TABS One tablet by mouth twice daily BUSPIRONE HCL [id number] Brenda Arthur MD cholecalciferol 0.05 mg chewable tablet (6 sources) Vitamin D Start: 12-26-19 End: 04-07-20 take 1 tablet by mouth once daily cholecalciferol, vitamin D3, 2,000 unit chew Take 1 tablet by mouth once daily. 30 tablet 11 12/26/2019 04/07/2023 Discontinued (Other) Comment on above: [facility] clindamycin 150 mg oral capsule (17 sources) Lincosamide Antibacterial Start: 05-26-20 End: 06-01-20 Start: 04-23-2023 End: 04-30-2023 take 1 capsule by mouth three times daily clindamycin (CLEOCIN) 300 mg capsule Indications: Toothache Take 1 capsule by mouth three times daily for 7 days. 21 capsule 0 04/23/2023 04/30/2023 Active Comment on above: Take 1 capsule by mo [facility] three times daily for 7 days. Dulaglutide (20 sources) GLP-1 Receptor Agonist Start: 08-19-2024 End: 07-17-2025 Start: 08-19-2024 Dulaglutide (T rulicity) 3 mg/0.5 mL pen [...] MO January 29, 2023 12:00am Start: 01-29-2023 furosemide 20 mg oral tablet (20 sources) [...] / neomycin 3.5 mg/ml / polymyxin b 32623 unt/ml otic suspension (20 sources) Aminoglycoside Antibacterial, Polymyxin-class Antibacterial, Corticosteroid Start: 08-14-2017 End: 12-10-2017 Start: 08-14-2017 End: 12-10-2017 Rnceoyvn-Evlzugknj-Mf 10 ML drops,suspension Discontinued 4 NMA OT 4 TIMES DAILY 7 0 August 14, 2017 12:00am December 10, 2017 2:37pm insulin lispro (HUMALOG KWIKPEN) 100 unit/mL (10 [...] scale INSULIN ASPART PROT & ASPART SUSP [id number] Beth Doyle MA 3 ml insulin, aspart, human 100 unt/ml pen injector (2 sources) Insulin Analog Start: 03-10-2010 End: 07-28-2017 NOVOLOG FLEXPEN SOLN 12 units SC at breakfast, 10 units SC at lunch, 10 units SC at supper INSULIN ASPART SOLN [id number] Angelika De La Torre LPN levoFLOXacin 750 [...] TABS One tablet by mouth daily LISINOPRIL [id number] Brenda Arthur MD LORazepam 0.5 mg oral [...] every 6 hours as needed for anxiety. menthol 0.0044 mg/mg / zinc oxide 0.206 mg/mg topical ointment (20 sources) Start: 11-24-2023 End: 01-01-2024 Start: 11-24-2023 End: 01-01-2024 Menthol-Zinc Oxide (Calmosep [...] affected ar ea three times daily. nystatin [id number] unt/ml oral suspension (20 sources) Polyene Antifungal [...] mouth four times daily PRN OXYCODONE HCL [id number] Yaw Cabrera MD polyethylene glycol [id number] mg powder for oral solution (20 sources) Osmotic Laxative Start: 03-27-2022 End: 11-19-2023 microencapsulated potassium chloride 20 meq extended release oral tablet (20 sources) Start: 11-24-2023 End: 01-30-2025 QUEtiapine 25 mg oral tablet (20 sources) Atypical Antipsychotic Start: 01-30-2025 take 1 tablet by mouth at bedtime Quetiapine 25 mg tablet Active 25 mg PO AT BEDTIME January 30, 2025 2:05pm Start: 01-29-2023 End: 07-17-2025 Start: 01-29-2023 End: 01-30-2025 Quetiapine 25 mg [...] 2022 2:46pm sleep Start: 06-20-2021 End: 09-09-2022 sulfamethoxazole 800 mg / trimethoprim 160 mg [...] CREA affected area twice daily TRIAMCINOLONE ACETONIDE [id number] Brenda Arthur MD CHOLECALCIFEROL CAPS (1 source) Start: 07-28-2017 VITAMIN D CAPS as directed CHOLECALCIFEROL CAPS [id number] Angelika De La Torre LPN Problems Active [...] Coronary atherosclerosis; Translations: [Atherosclerotic heart disease of [place] coronary artery without angina pectoris] Onset: 5 [...] sources) Long-term current use of anticoagulant; Translations: [snf (current) use of anticoagulants] 01-20-2024 Episodic Other [...] Unclassified (1 source) Unknown / UNK(Unknown) Onset: Viral infection (20 sources) Acute herpes zoster neuropathy; Translations: [Zoster [...] gap in Serum or Plasma Ordered By: Ana Maria Geller on 07-26-2025 Anion gap [Moles/Vol] 13 mmol/L - [facility] BUN/creatinine ratioOrdered By: Ana Maria Geller on 07-26-2025 Urea nitrogen/Creatinine [Mass ratio] 22.4 mg/mg High - [facility] Carbon dioxide, total [Moles /volume] in Central venous bloodOrdered By: Ana Maria Geller on 07-26-2025 CO2 [Moles/Vol] 24.9 mmol/L 21.0-32.0 [facility] Chloride assayOrdered By: Heraclio Geller on 07-26-2025 Chloride [Moles/Vol] 97 mmol/L Low 98-108 [facility] Glomerular filtration rate ( GFR) estimation/1.73 sq m using serum, plasma, or whole bOrdered By: Ana Maria Geller on 07-26-2025 GFR/1.73 sq M.predicted among non-blacks MDRD (S/P/Bld) [Vol rate/Area] 54 mL/min/{1.73_m2} Low >60 [facility] Hemoglobin A1c percentageOrd ered By: Ana Maria Geller on 07-26-2025 HbA1c (Bld) [Mass fraction] 9.4 % High <5.7 [facility] Potassium measurement (mass/ volume)Ordered By: Ana Maria Geller on 07-26-2025 Potassium (Unsp spec) [Mass/Vol] 3.9 mmol/L 3.3-5.1 [facility] Serum creatinine measurement (mass/volume)Ordered By: Ana Maria Geller on 07-26-2025 Creatinine [Mass/Vol] 1.15 mg/dL 0.70-1.20 [facility] Serum glucose measurement (m ass/volume)Ordered By: Ana Maria Geller on 07-26-2025 Glucose [Mass/Vol] 213 mg/dL High 70-[address] [facility] Serum or plasma calcium tai urement (mass/volume)Ordered By: Ana Maria Geller on 07-26-2025 Calcium [Mass/Vol] 9.0 mg/dL 7.6-11.[address] [facility] Serum or plasma urea nitroge n measurement (mass/volume)Ordered By: Ana Maria Geller on 07-26-2025 Urea nitrogen [Mass/Vol] 26 mg/dL High 4-19 [facility] Sodium levelOrdered By: Patrizia Geller on 07-26-2025 Sodium [Moles/Vol] 135 mmol/L 133-[address] [facility] Magnetic resonance imaging r eportOrdered By: Iron Carbajal on 07-09-2025 Study report [facility] Hemoglobin A1c percentageOrd ered By: Lizet Linares on 07-06-2025 HbA1c (Bld) [Mass fraction] 9.3 % High <5.7 [facility] Absolute lymphocyte countOrd ered By: Lizet Linares on 06-28-2025 Lymphocytes Auto (Unsp spec) [#/Vol] 2.50 10*3/uL 0.83-4.51 [facility] Anion gap in Serum or Plasma Ordered By: Lizet Linares on 06-28-2025 Anion gap [Moles/Vol] 11 mmol/L 5-15 [facility] Automated lymphocyte count a s percentage of total leukocytesOrdered By: Lizet Linares on 06-28-2025 Lymphocytes/100 WBC Auto (Unsp spec) 31.3 % 19-41 [facility] BUN/creatinine ratioOrdered By: Lizet Linares on 06-28-2025 Urea nitrogen/Creatinine [Mass ratio] 21.2 mg/mg High 10-20 [facility] Basophil percentageOrdered B y: Lizet Linares on 06-28-2025 Basophils/100 WBC (Bld) 0.5 % 0-1 [facility] Carbon dioxide, total [Moles /volume] in Central venous bloodOrdered By: Lizet Linares on 06-28-2025 CO2 [Moles/Vol] 23.4 mmol/L 21.0-32.0 [facility] Chloride assayOrdered By: Junie Linares on 06-28-2025 Chloride [Moles/Vol] 100 mmol/L 98-108 [facility] Eosinophil percentageOrdered By: Lizet Linares on 06-28-2025 Eosinophils/100 WBC (Bld) 1.4 % 0-5 [facility] Erythrocyte distribution wid th ratioOrdered By: Lizet Linares on 06-28-2025 Erythrocyte distribution width (RBC) [Ratio] 15.1 % High 11.6-14.6 [facility] Erythrocyte distribution wid th standard deviationOrdered By: Lizet Linares on 06-28-2025 Erythrocyte distribution width (RBC) [Ratio] 48.3 fl High 35.1-43.9 [facility] Glomerular filtration rate ( GFR) estimation/1.73 sq m using serum, plasma, or whole bOrdered By: Lizet Linares on 06-28-2025 GFR/1.73 sq M.predicted among non-blacks MDRD (S/P/Bld) [Vol rate/Area] 44 mL/min/{1.73_m2} Low >60 [facility] Hematocrit Auto (Bld) [Volum e fraction]Ordered By: Lizet Linares on 06-28-2025 Hematocrit (Bld) [Volume fraction] 31.3 % Low 37-47 [facility] Hemoglobin measurementOrdere d By: Lizet Linares on 06-28-2025 Hemoglobin (Bld) [Mass/Vol] 9.9 g/dL Low 12.0-15.0 [facility] Immature granulocytes/100 WB C Auto (Bld)Ordered By: Lizet Linares on 06-28-2025 Immature granulocytes/100 WBC (Bld) 0.500 % 0.0-0.9 [facility] MCV (mean corpuscular volume ) determinationOrdered By: Lizet Linares on 06-28-2025 MCV (RBC) [Entitic vol] 86.5 fL 81-99 [facility] Mean corpuscular hemoglobin (MCH) determinationOrdered By: christaerminenatasha Linares on 06-28-2025 MCH (RBC) [Entitic mass] 27.3 pg 27.0-32.0 [facility] Monocyte percentageOrdered B y: Lizet Linares on 06-28-2025 Monocytes/100 WBC (Bld) 6.8 % 0-10 [facility] Neutrophil percentageOrdered By: marcelle Linares on 06-28-2025 Neutrophils/100 WBC (Bld) 59.5 % 47-70 [facility] Platelet countOrdered By: Junie Linares on 06-28-2025 Platelets (Bld) [#/Vol] 378 10*3/uL 150-450 [facility] Potassium measurement (mass/ volume)Ordered By: Lizet Linares on 06-28-2025 Potassium (Unsp spec) [Mass/Vol] 4.2 mmol/L 3.3-5.1 [facility] RBC Auto (Bld) [#/Vol]Ordere d By: Lizet Linares on 06-28-2025 RBC (Bld) [#/Vol] 3.62 10*6/uL Low 4.2-5.4 [facility] Serum creatinine measurement (mass/volume)Ordered By: Lizet Linares on 06-28-2025 Creatinine [Mass/Vol] 1.38 mg/dL High 0.70-1.20 [facility] Serum glucose measurement (m ass/volume)Ordered By: Lizet Linares on 06-28-2025 Glucose [Mass/Vol] 342 mg/dL High 70-[address] [facility] Serum or plasma calcium tai urement (mass/volume)Ordered By: Lizet Linares on 06-28-2025 Calcium [Mass/Vol] 8.2 mg/dL 7.6-11.[address] [facility] Serum or plasma urea nitroge n measurement (mass/volume)Ordered By: Lizet Linares on 06-28-2025 Urea nitrogen [Mass/Vol] 29 mg/dL High 4-19 [facility] Sodium levelOrdered By: Holly Linares on 06-28-2025 Sodium [Moles/Vol] 134 mmol/L 133-[address] [facility] White blood cell (WBC) count Ordered By: Lizet Linares on 06-28-2025 WBC (Bld) [#/Vol] 8.0 10*3/uL 4.4-11.[address] [facility] TSH DL <= 0.005 mIU/L QnOrde red By: Lizet Linares on 06-11-2025 TSH Qn 3.570 uIU/mL 0.300-4.20 0 [facility] Bilirubin directOrdered By: Lizte Linares on 06-04-2025 Bilirubin.direct [Mass/Vol] 0.16 mg/dL 0.00-0.30 [facility] Bilirubin, totalOrdered By: Lizet Linares on 06-04-2025 Bilirubin [Mass/Vol] 0.35 mg/dL 0.00-1.30 [facility] Laboratory - Chemistry and C hemistry - challengeOrdered By: Lizet Linares on 06-04-2025 AST [Catalytic activity/Vol] 34 U/L High <32 [facility] No Panel InformationOrdered By: Lizet Linares on 06-04-2025 34 U/L High <32 [facility] Serum globulin measurementOr dered By: Lizet Linares on 06-04-2025 Globulin (S) [Mass/Vol] 3.0 g/dL 2.2-4.2 [facility] Serum or plasma alanine russo otransferase (ALT) measurementOrdered By: Lizet Linares on 06-04-2025 ALT [Catalytic activity/Vol] 18 U/L <35 [facility] Serum or plasma albumin tai urement (mass/volume)Ordered By: Lizet Linares on 06-04-2025 Albumin [Mass/Vol] 3.5 g/dL 3.4-4.[address] [facility] Serum or plasma alkaline shante sphatase measurementOrdered By: Lizet Linares on 06-04-2025 ALP [Catalytic activity/Vol] 43 U/L 35-104 [facility] Total proteinOrdered By: Bart Linares on 06-04-2025 Protein [Mass/Vol] 6.5 g/dL 5.9-8.[address] [facility] Absolute lymphocyte countOrd ered By: John Shaw on 06-01-2025 Lymphocytes Auto (Unsp spec) [#/Vol] 2.63 10*3/uL 0.83-4.51 [facility] Absolute neutrophil countOrd ered By: John Shaw on 06-01-2025 Neutrophils (Bld) [#/Vol] 3.9 10*3/uL 2.0-7.7 [facility] Anion gap in Serum or Plasma Ordered By: John Shaw on 06-01-2025 Anion gap [Moles/Vol] 11 mmol/L 5-15 [facility] Automated lymphocyte count a s percentage of total leukocytesOrdered By: John Shaw on 06-01-2025 Lymphocytes/100 WBC Auto (Unsp spec) 35.9 % 19-41 [facility] BUN/creatinine ratioOrdered By: John Shaw on 06-01-2025 Urea nitrogen/Creatinine [Mass ratio] 17.9 mg/mg 10-20 [facility] Basophil percentageOrdered B y: John Shaw on 06-01-2025 Basophils/100 WBC (Bld) 1.0 % 0-1 [facility] Carbon dioxide, total [Moles /volume] in Central venous bloodOrdered By: John Shaw on 06-01-2025 CO2 [Moles/Vol] 22.5 mmol/L 21.0-32.0 [facility] Chloride assayOrdered By: Albert Shaw on 06-01-2025 Chloride [Moles/Vol] 101 mmol/L 98-108 [facility] Eosinophil percentageOrdered By: John Shaw on 06-01-2025 Eosinophils/100 WBC (Bld) 2.7 % 0-5 [facility] Erythrocyte distribution wid th ratioOrdered By: John Shaw on 06-01-2025 Erythrocyte distribution width (RBC) [Ratio] 15.0 % High 11.6-14.6 [facility] Erythrocyte distribution wid th standard deviationOrdered By: John Shaw on 06-01-2025 Erythrocyte distribution width (RBC) [Ratio] 48.1 fl High 35.1-43.9 [facility] Glomerular filtration rate ( GFR) estimation/1.73 sq m using serum, plasma, or whole bOrdered By: John Shaw on 06-01-2025 GFR/1.73 sq M.predicted among non-blacks MDRD (S/P/Bld) [Vol rate/Area] 54 mL/min/{1.73_m2} Low >60 [facility] Comment on above: mL/min/1.73m2 CKD-EP I Creatinine Equation (2020) Glucose measurement at bedsi deOrdered By: John Shaw on 06-01-2025 Glucose [Mass/Vol] 204 mg/dL High 74-[address] [facility] Comment on above: MANAGEMENT OF PATIEN T CARE PER NURSING PROTOCOL Hematocrit Auto (Bld) [Volum e fraction]Ordered By: John Shaw on 06-01-2025 Hematocrit (Bld) [Volume fraction] 34.7 % Low 37-47 [facility] Hemoglobin measurementOrdere d By: John Shaw on 06-01-2025 Hemoglobin (Bld) [Mass/Vol] 10.7 g/dL Low 12.0-15.0 [facility] Immature granulocytes/100 WB C Auto (Bld)Ordered By: John Shaw on 06-01-2025 Immature granulocytes/100 WBC (Bld) 1.400 % High 0.0-0.9 [facility] Comment on above: IG% - Immature Granu locytes (promyelocytes, myelocytes and metamyelocytes) > 1% indicates that a LEFT SHIFT is Present. MCV (mean corpuscular volume ) determinationOrdered By: John Shaw on 06-01-2025 MCV (RBC) [Entitic vol] 88.7 fL 81-99 [facility] Mean corpuscular hemoglobin (MCH) determinationOrdered By: John Shaw on 06-01-2025 MCH (RBC) [Entitic mass] 27.4 pg 27.0-32.0 [facility] Mean corpuscular hemoglobin concentration (MCHC) determinationOrdered By: John Shaw on 06-01-2025 MCHC (RBC) [Mass/Vol] 30.8 g/dL Low 32-36 [facility] Mean platelet volume determi nationOrdered By: John Shaw on 06-01-2025 Platelet mean volume (Bld) [Entitic vol] 9.3 fL 6.2-12.0 [facility] Monocyte percentageOrdered B y: John Shaw on 06-01-2025 Monocytes/100 WBC (Bld) 5.5 % 0-10 [facility] Neutrophil percentageOrdered By: John Shaw on 06-01-2025 Neutrophils/100 WBC (Bld) 53.5 % 47-70 [facility] Nucleated red blood cell per centageOrdered By: John Shaw on 06-01-2025 Nucleated RBC/100 WBC (Bld) [Ratio] 0 % 0-5 [facility] Platelet countOrdered By: Albert Shaw on 06-01-2025 Platelets (Bld) [#/Vol] 384 10*3/uL 150-450 [facility] Potassium measurement (mass/ volume)Ordered By: John Shaw on 06-01-2025 Potassium (Unsp spec) [Mass/Vol] 4.1 mmol/L 3.3-5.1 [facility] RBC Auto (Bld) [#/Vol]Ordere d By: John Shaw on 06-01-2025 RBC (Bld) [#/Vol] 3.91 10*6/uL Low 4.2-5.4 [facility] Serum creatinine measurement (mass/volume)Ordered By: John Shaw on 06-01-2025 Creatinine [Mass/Vol] 1.16 mg/dL 0.70-1.20 [facility] Serum glucose measurement (m ass/volume)Ordered By: John Shaw on 06-01-2025 Glucose [Mass/Vol] 181 mg/dL High 70-[address] [facility] Serum or plasma calcium tai urement (mass/volume)Ordered By: John Shaw on 06-01-2025 Calcium [Mass/Vol] 9.1 mg/dL 7.6-11.[address] [facility] Serum or plasma urea nitroge n measurement (mass/volume)Ordered By: John Shaw on 06-01-2025 Urea nitrogen [Mass/Vol] 21 mg/dL High 4-19 [facility] Sodium levelOrdered By: David Shaw on 06-01-2025 Sodium [Moles/Vol] 135 mmol/L 133-[address] [facility] Trough vancomycin levelOrder ed By: Juan Chiang on 06-01-2025 Vancomycin trough [Mass/Vol] 17.6 ug/mL High 5.0-15.0 [facility] Comment on above: Recommended goal tro ugh [...] therapy recommended for serious lifethreatening infections include:- Miszpmpgqi-Qqdkfiblxjbu-Gcghnagnm (Ventilator/Healtcare Associated)-Sepsis PLEASE CONTACT PHARMACY SERVICES (#[id number]) FOR INTERPRETATIONOF RESULTS. White blood cell (WBC) count Ordered By: John Shaw on 06-01-2025 WBC (Bld) [#/Vol] 7.3 10*3/uL 4.4-11.[address] [facility] Gram stainOrdered By: Juan Whatley on 05-30-2025 Microscopic observation Gram stain Nom (Unsp spec) [facility] Magnesium measurement (mass/ volume)Ordered By: John Shaw on 05-30-2025 Magnesium (Unsp spec) [Mass/Vol] 2.2 mg/dL 1.5-2.2 [facility] Routine wound cultureOrdered By: Juan Whatley on 05-30-2025 Microbial culture, routine Meth. resistant Staph. aureus Abnormal [facility] Absolute lymphocyte countOrd ered By: Delores Moya on 05-28-2025 Lymphocytes Auto (Unsp spec) [#/Vol] 1.82 10*3/uL 0.83-4.51 [facility] Absolute neutrophil countOrd ered By: Delores Moya on 05-28-2025 Neutrophils (Bld) [#/Vol] 4.1 10*3/uL 2.0-7.7 [facility] Anion gap in Serum or Plasma Ordered By: Delores Moya on 05-28-2025 Anion gap [Moles/Vol] 13 mmol/L 5-15 [facility] Automated lymphocyte count a s percentage of total leukocytesOrdered By: Delores Moya on 05-28-2025 Lymphocytes/100 WBC Auto (Unsp spec) 27.3 % 19-41 [facility] BUN/creatinine ratioOrdered By: Delores Moya on 05-28-2025 Urea nitrogen/Creatinine [Mass ratio] 17.7 mg/mg 10-20 [facility] Basophil percentageOrdered B y: Delores Moya on 05-28-2025 Basophils/100 WBC (Bld) 0.7 % 0-1 [facility] Blood cultureOrdered By: Victoria Moya on 05-28-2025 Bacteria identified Cx Nom (Bld) No growth in 5 days. [facility] Bacteria identified Cx Nom (Bld) No growth in 5 days. [facility] Carbon dioxide, total [Moles /volume] in Central venous bloodOrdered By: Delores Moya on 05-28-2025 CO2 [Moles/Vol] 22.7 mmol/L 21.0-32.0 [facility] Chloride assayOrdered By: Edis Moya on 05-28-2025 Chloride [Moles/Vol] 97 mmol/L Low 98-108 [facility] Eosinophil percentageOrdered By: Delores Moya on 05-28-2025 Eosinophils/100 WBC (Bld) 1.3 % 0-5 [facility] Erythrocyte distribution wid th ratioOrdered By: Delores Moya on 05-28-2025 Erythrocyte distribution width (RBC) [Ratio] 14.7 % High 11.6-14.6 [facility] Erythrocyte distribution wid th standard deviationOrdered By: Delores Moya on 05-28-2025 Erythrocyte distribution width (RBC) [Ratio] 46.3 fl High 35.1-43.9 [facility] Glomerular filtration rate ( GFR) estimation/1.73 sq m using serum, plasma, or whole bOrdered By: Delores Moya on 05-28-2025 GFR/1.73 sq M.predicted among non-blacks MDRD (S/P/Bld) [Vol rate/Area] 42 mL/min/{1.73_m2} Low >60 [facility] Comment on above: mL/min/1.73m2 CKD-EP I Creatinine Equation (2020) [facility] deOrdered By: Chavez Alcala on 05-28-2025 Glucose [Mass/Vol] 133 mg/dL High 74-[address] [facility] Comment on above: MANAGEMENT OF PATIEN T CARE PER NURSING PROTOCOL Hematocrit Auto (Bld) [Volum e fraction]Ordered By: Delores Moya on 05-28-2025 Hematocrit (Bld) [Volume fraction] 35.1 % Low 37-47 [facility] Hemoglobin measurementOrdere d By: Delores Moya on 05-28-2025 Hemoglobin (Bld) [Mass/Vol] 11.2 g/dL Low 12.0-15.0 [facility] Immature granulocytes/100 WB C Auto (Bld)Ordered By: Delores Moya on 05-28-2025 Immature granulocytes/100 WBC (Bld) 0.300 % 0.0-0.9 [facility] Comment on above: IG% - Immature Granu locytes (promyelocytes, myelocytes and metamyelocytes) > 1% indicates that a LEFT SHIFT is Present. Lactic acid measurementOrder ed By: Delores Moya on 05-28-2025 Lactate [Moles/Vol] 1.2 mmol/L 0.0-2.0 [facility] MCV (mean corpuscular volume ) determinationOrdered By: Delores Moya on 05-28-2025 MCV (RBC) [Entitic vol] 86.2 fL 81-99 [facility] Mean corpuscular hemoglobin (MCH) determinationOrdered By: Delores Moya on 05-28-2025 MCH (RBC) [Entitic mass] 27.5 pg 27.0-32.0 [facility] Mean corpuscular hemoglobin concentration (MCHC) determinationOrdered By: Delores Moya on 05-28-2025 MCHC (RBC) [Mass/Vol] 31.9 g/dL Low 32-36 [facility] Mean platelet volume determi nationOrdered By: Delores Moya on 05-28-2025 Platelet mean volume (Bld) [Entitic vol] 9.3 fL 6.2-12.0 [facility] Monocyte percentageOrdered B y: Delores Moya on 05-28-2025 Monocytes/100 WBC (Bld) 8.7 % 0-10 [facility] Neutrophil percentageOrdered By: Delores Moya on 05-28-2025 Neutrophils/100 WBC (Bld) 61.7 % 47-70 [facility] Nucleated red blood cell per centageOrdered By: Deloers Moya on 05-28-2025 Nucleated RBC/100 WBC (Bld) [Ratio] 0 % 0-5 [facility] Platelet countOrdered By: Edis Moya on 05-28-2025 Platelets (Bld) [#/Vol] 369 10*3/uL 150-450 [facility] Potassium measurement (mass/ volume)Ordered By: Delores Moya on 05-28-2025 Potassium (Unsp spec) [Mass/Vol] 4.1 mmol/L 3.3-5.1 [facility] RBC Auto (Bld) [#/Vol]Ordere d By: Delores Moya on 05-28-2025 RBC (Bld) [#/Vol] 4.07 10*6/uL Low 4.2-5.4 [facility] Serum creatinine measurement (mass/volume)Ordered By: Delores Moya on 05-28-2025 Creatinine [Mass/Vol] 1.43 mg/dL High 0.70-1.20 [facility] Serum glucose measurement (m ass/volume)Ordered By: Delores Moya on 05-28-2025 Glucose [Mass/Vol] 160 mg/dL High 70-[address] [facility] Serum or plasma calcium tai urement (mass/volume)Ordered By: Delores Moya on 05-28-2025 Calcium [Mass/Vol] 8.9 mg/dL 7.6-11.[address] [facility] Serum or plasma urea nitroge n measurement (mass/volume)Ordered By: Delores Moya on 05-28-2025 Urea nitrogen [Mass/Vol] 25 mg/dL High 4-19 [facility] Sodium levelOrdered By: Marck Moya on 05-28-2025 Sodium [Moles/Vol] 133 mmol/L 133-[address] [facility] White blood cell (WBC) count Ordered By: Delores Moya on 05-28-2025 WBC (Bld) [#/Vol] 6.7 10*3/uL 4.4-11.[address] [facility] Absolute lymphocyte countOrd ered By: Raúl Alejo on 05-26-2025 Lymphocytes Auto (Unsp spec) [#/Vol] 2.42 10*3/uL 0.83-4.51 [facility] Absolute neutrophil countOrd ered By: Raúl Alejo on 05-26-2025 Neutrophils (Bld) [#/Vol] 6.7 10*3/uL 2.0-7.7 [facility] Anion gap in Serum or Plasma Ordered By: Raúl Alejo on 05-26-2025 Anion gap [Moles/Vol] 12 mmol/L 5-15 [facility] Automated lymphocyte count a s percentage of total leukocytesOrdered By: Raúl Alejo on 05-26-2025 Lymphocytes/100 WBC Auto (Unsp spec) 24.6 % 19-41 [facility] BUN/creatinine ratioOrdered By: Raúl Alejo on 05-26-2025 Urea nitrogen/Creatinine [Mass ratio] 17.5 mg/mg 10-20 [facility] Basophil percentageOrdered B y: Raúl Alejo on 05-26-2025 Basophils/100 WBC (Bld) 0.4 % 0-1 [facility] Carbon dioxide, total [Moles /volume] in Central venous bloodOrdered By: Raúl Alejo on 05-26-2025 CO2 [Moles/Vol] 22.0 mmol/L 21.0-32.0 [facility] Chloride assayOrdered By: Kwesi Alejo on 05-26-2025 Chloride [Moles/Vol] 98 mmol/L 98-108 [facility] Eosinophil percentageOrdered By: Raúl Alejo on 05-26-2025 Eosinophils/100 WBC (Bld) 0.6 % 0-5 [facility] Erythrocyte distribution wid th ratioOrdered By: Raúl Alejo on 05-26-2025 Erythrocyte distribution width (RBC) [Ratio] 14.6 % 11.6-14.6 [facility] Erythrocyte distribution wid th standard deviationOrdered By: Raúl Alejo on 05-26-2025 Erythrocyte distribution width (RBC) [Ratio] 45.9 fl High 35.1-43.9 [facility] Glomerular filtration rate ( GFR) estimation/1.73 sq m using serum, plasma, or whole bOrdered By: Raúl Alejo on 05-26-2025 GFR/1.73 sq M.predicted among non-blacks MDRD (S/P/Bld) [Vol rate/Area] 33 mL/min/{1.73_m2} Low >60 [facility] Comment on above: mL/min/1.73m2 CKD-EP I Creatinine Equation (2020) Hematocrit Auto (Bld) [Volum e fraction]Ordered By: Raúl Alejo on 05-26-2025 Hematocrit (Bld) [Volume fraction] 34.9 % Low 37-47 [facility] Hemoglobin measurementOrdere d By: Raúl Alejo on 05-26-2025 Hemoglobin (Bld) [Mass/Vol] 11.3 g/dL Low 12.0-15.0 [facility] Immature granulocytes/100 WB C Auto (Bld)Ordered By: Raúl Alejo on 05-26-2025 Immature granulocytes/100 WBC (Bld) 0.400 % 0.0-0.9 [facility] Comment on above: IG% - Immature Granu locytes (promyelocytes, myelocytes and metamyelocytes) > 1% indicates that a LEFT SHIFT is Present. MCV (mean corpuscular volume ) determinationOrdered By: Raúl Alejo on 05-26-2025 MCV (RBC) [Entitic vol] 85.7 fL 81-99 [facility] Mean corpuscular hemoglobin (MCH) determinationOrdered By: Raúl Alejo on 05-26-2025 MCH (RBC) [Entitic mass] 27.8 pg 27.0-32.0 [facility] Mean corpuscular hemoglobin concentration (MCHC) determinationOrdered By: Raúl Alejo on 05-26-2025 MCHC (RBC) [Mass/Vol] 32.4 g/dL 32-36 [facility] Mean platelet volume determi nationOrdered By: Raúl Alejo on 05-26-2025 Platelet mean volume (Bld) [Entitic vol] 9.1 fL 6.2-12.0 [facility] Monocyte percentageOrdered B y: Raúl Alejo on 05-26-2025 Monocytes/100 WBC (Bld) 6.3 % 0-10 [facility] Neutrophil percentageOrdered By: Raúl Alejo on 05-26-2025 Neutrophils/100 WBC (Bld) 67.7 % 47-70 [facility] Nucleated red blood cell per centageOrdered By: Raúl Alejo on 05-26-2025 Nucleated RBC/100 WBC (Bld) [Ratio] 0 % 0-5 [facility] Platelet countOrdered By: Kwesi Alejo on 05-26-2025 Platelets (Bld) [#/Vol] 349 10*3/uL 150-450 [facility] Potassium measurement (mass/ volume)Ordered By: Raúl Alejo on 05-26-2025 Potassium (Unsp spec) [Mass/Vol] 4.4 mmol/L 3.3-5.1 [facility] RBC Auto (Bld) [#/Vol]Ordere d By: Raúl Alejo on 05-26-2025 RBC (Bld) [#/Vol] 4.07 10*6/uL Low 4.2-5.4 [facility] Serum creatinine measurement (mass/volume)Ordered By: Raúl Alejo on 05-26-2025 Creatinine [Mass/Vol] 1.76 mg/dL High 0.70-1.20 [facility] Serum glucose measurement (m ass/volume)Ordered By: Raúl Alejo on 05-26-2025 Glucose [Mass/Vol] 243 mg/dL High 70-[address] [facility] Serum or plasma calcium tai urement (mass/volume)Ordered By: Raúl Alejo on 05-26-2025 Calcium [Mass/Vol] 8.8 mg/dL 7.6-11.[address] [facility] Serum or plasma urea nitroge n measurement (mass/volume)Ordered By: aRúl Alejo on 05-26-2025 Urea nitrogen [Mass/Vol] 31 mg/dL High 4-19 [facility] Sodium levelOrdered By: Raúl Alejo on 05-26-2025 Sodium [Moles/Vol] 132 mmol/L Low 133-[address] [facility] White blood cell (WBC) count Ordered By: Raúl Alejo on 05-26-2025 WBC (Bld) [#/Vol] 9.9 10*3/uL 4.4-11.[address] [facility] Absolute lymphocyte countOrd ered By: Lizet Linares on 05-07-2025 Lymphocytes Auto (Unsp spec) [#/Vol] 2.01 10*3/uL 0.83-4.51 [facility] Absolute neutrophil countOrd ered By: Lizet Linares on 05-07-2025 Neutrophils (Bld) [#/Vol] 3.3 10*3/uL 2.0-7.7 [facility] Anion gap in Serum or Plasma Ordered By: Lizet Linares on 05-07-2025 Anion gap [Moles/Vol] 12 mmol/L 5-15 [facility] Automated lymphocyte count a s percentage of total leukocytesOrdered By: Lizet Linares on 05-07-2025 Lymphocytes/100 WBC Auto (Unsp spec) 34.1 % 19-41 [facility] BUN/creatinine ratioOrdered By: Lizet Linares on 05-07-2025 Urea nitrogen/Creatinine [Mass ratio] 17.0 mg/mg 10-20 [facility] Basophil percentageOrdered B y: Asmitanatasha Crossjntal on 05-07-2025 Basophils/100 WBC (Bld) 0.5 % 0-1 [facility] Carbon dioxide, total [Moles /volume] in Central venous bloodOrdered By: Lizet Linares on 05-07-2025 CO2 [Moles/Vol] 23.8 mmol/L 21.0-32.0 [facility] Chloride assayOrdered By: Junie christastacey Crossjntal on 05-07-2025 Chloride [Moles/Vol] 99 mmol/L 98-108 [facility] Eosinophil percentageOrdered By: Juniechristajanellnatasha Crossjntal on 05-07-2025 Eosinophils/100 WBC (Bld) 2.2 % 0-5 [facility] Erythrocyte distribution wid th ratioOrdered By: Juniechristastacey Tayjntal on 05-07-2025 Erythrocyte distribution width (RBC) [Ratio] 15.2 % High 11.6-14.6 [facility] Erythrocyte distribution wid th standard deviationOrdered By: christaerminenatasha Crossjntal on 05-07-2025 Erythrocyte distribution width (RBC) [Ratio] 50.5 fl High 35.1-43.9 [facility] Glomerular filtration rate ( GFR) estimation/1.73 sq m using serum, plasma, or whole bOrdered By: Lizet Linarse on 05-07-2025 GFR/1.73 sq M.predicted among non-blacks MDRD (S/P/Bld) [Vol rate/Area] 37 mL/min/{1.73_m2} Low >60 [facility] Comment on above: mL/min/1.73m2 CKD-EP I Creatinine Equation (2020) Hematocrit Auto (Bld) [Volum e fraction]Ordered By: Lizet Linares on 05-07-2025 Hematocrit (Bld) [Volume fraction] 34.0 % Low 37-47 [facility] Hemoglobin measurementOrdere d By: Lizet Linares on 05-07-2025 Hemoglobin (Bld) [Mass/Vol] 10.4 g/dL Low 12.0-15.0 [facility] Immature granulocytes/100 WB C Auto (Bld)Ordered By: Lizet Linares on 05-07-2025 Immature granulocytes/100 WBC (Bld) 0.500 % 0.0-0.9 [facility] Comment on above: IG% - Immature Granu locytes (promyelocytes, myelocytes and metamyelocytes) > 1% indicates that a LEFT SHIFT is Present. MCV (mean corpuscular volume ) determinationOrdered By: Lizet Linares on 05-07-2025 MCV (RBC) [Entitic vol] 92.1 fL 81-99 [facility] Mean corpuscular hemoglobin (MCH) determinationOrdered By: Lizet Linares on 05-07-2025 MCH (RBC) [Entitic mass] 28.2 pg 27.0-32.0 [facility] Mean corpuscular hemoglobin concentration (MCHC) determinationOrdered By: Lizet Linares on 05-07-2025 MCHC (RBC) [Mass/Vol] 30.6 g/dL Low 32-36 [facility] Mean platelet volume determi nationOrdered By: Lizet Linares on 05-07-2025 Platelet mean volume (Bld) [Entitic vol] 10.0 fL 6.2-12.0 [facility] Monocyte percentageOrdered B y: Lizet Linares on 05-07-2025 Monocytes/100 WBC (Bld) 7.3 % 0-10 [facility] Neutrophil percentageOrdered By: Lizet Linares on 05-07-2025 Neutrophils/100 WBC (Bld) 55.4 % 47-70 [facility] Nucleated red blood cell per centageOrdered By: Lizet Linares on 05-07-2025 Nucleated RBC/100 WBC (Bld) [Ratio] 0 % 0-5 [facility] Platelet countOrdered By: Junie Linares on 05-07-2025 Platelets (Bld) [#/Vol] 338 10*3/uL 150-450 [facility] Potassium measurement (mass/ volume)Ordered By: Lizet Linares on 05-07-2025 Potassium (Unsp spec) [Mass/Vol] 4.2 mmol/L 3.3-5.1 [facility] RBC Auto (Bld) [#/Vol]Ordere d By: Lizet Linares on 05-07-2025 RBC (Bld) [#/Vol] 3.69 10*6/uL Low 4.2-5.4 [facility] Serum creatinine measurement (mass/volume)Ordered By: Lizet Linares on 05-07-2025 Creatinine [Mass/Vol] 1.58 mg/dL High 0.70-1.20 [facility] Serum glucose measurement (m ass/volume)Ordered By: Lizet Linares on 05-07-2025 Glucose [Mass/Vol] 232 mg/dL High 70-[address] [facility] Serum or plasma calcium tai urement (mass/volume)Ordered By: Lizet Linares on 05-07-2025 Calcium [Mass/Vol] 8.9 mg/dL 7.6-11.[address] [facility] Serum or plasma urea nitroge n measurement (mass/volume)Ordered By: Lizet Linares on 05-07-2025 Urea nitrogen [Mass/Vol] 27 mg/dL High 4-19 [facility] Sodium levelOrdered By: Holly Linares on 05-07-2025 Sodium [Moles/Vol] 134 mmol/L 133-[address] [facility] White blood cell (WBC) count Ordered By: Lizet Linares on 05-07-2025 WBC (Bld) [#/Vol] 5.9 10*3/uL 4.4-11.[address] [facility] Anion gap in Serum or Plasma Ordered By: Lizet Linares on 04-25-2025 Anion gap [Moles/Vol] 12 mmol/L 5-15 [facility] BUN/creatinine ratioOrdered By: Lizet Linares on 04-25-2025 Urea nitrogen/Creatinine [Mass ratio] 21.3 mg/mg High 10-20 [facility] Carbon dioxide, total [Moles /volume] in Central venous bloodOrdered By: Lizet Linares on 04-25-2025 CO2 [Moles/Vol] 23.8 mmol/L 21.0-32.0 [facility] Chloride assayOrdered By: Junie Linares on 04-25-2025 Chloride [Moles/Vol] 100 mmol/L 98-108 [facility] Glomerular filtration rate ( GFR) estimation/1.73 sq m using serum, plasma, or whole bOrdered By: Lizet Linares on 04-25-2025 GFR/1.73 sq M.predicted among non-blacks MDRD (S/P/Bld) [Vol rate/Area] 44 mL/min/{1.73_m2} Low >60 [facility] Comment on above: mL/min/1.73m2 CKD-EP I Creatinine Equation (2020) Natriuretic peptide.B prohor ivory N-Terminal [Mass/volume] in Serum or PlasmaOrdered By: Lizet Linares on 04-25-2025 Natriuretic peptide.B prohormone N-Terminal [Mass/Vol] 220 pg/mL <900 [facility] Comment on above: Heart Failure Unlike ly: < 300 pg/mLHeart Failure Likely< 50 Years: > 450 pg/mL50-75 Years: > 900 pg/mL>75 Years: > 1800 pg/mL Potassium measurement (mass/ volume)Ordered By: Lizet Linares on 04-25-2025 Potassium (Unsp spec) [Mass/Vol] 4.4 mmol/L 3.3-5.1 [facility] Serum creatinine measurement (mass/volume)Ordered By: Lizet Linares on 04-25-2025 Creatinine [Mass/Vol] 1.38 mg/dL High 0.70-1.20 [facility] Serum glucose measurement (m ass/volume)Ordered By: Lizet Linares on 04-25-2025 Glucose [Mass/Vol] 217 mg/dL High 70-[address] [facility] Serum or plasma calcium tai urement (mass/volume)Ordered By: Lizet Linares on 04-25-2025 Calcium [Mass/Vol] 9.2 mg/dL 7.6-11.[address] [facility] Serum or plasma urea nitroge n measurement (mass/volume)Ordered By: Lizet Linares on 04-25-2025 Urea nitrogen [Mass/Vol] 29 mg/dL High 02-10 [facility] Sodium levelOrdered By: Holly stacey Milagros on 04-25-2025 Sodium [Moles/Vol] 135 mmol/L 133-[address] [facility] TSH DL <= 0.005 mIU/L QnOrde red By: Lizet Linares on 04-25-2025 TSH Qn 24.000 uIU/mL High 0.300-4.20 0 [facility] Gram stainOrdered By: Hollybe weber Milagros on 04-12-2025 Microscopic observation Gram stain Nom (Unsp spec) [facility] Routine wound cultureOrdered By: Lizet Linares on 04-12-2025 Microbial culture, routine Meth. resistant Staph. aureus Abnormal [facility] Hemoglobin A1c percentageOrd ered By: Lizet Linares on 04-06-2025 HbA1c (Bld) [Mass fraction] 10.5 % High <5.7 [facility] Comment on above: Normal < 5.7 % Predi abetic 5.7 - 6.4 % Diabetic >or= 6.5 % Please note range changes. Hemoglobin A1c percentageOrd ered By: Lizet Linares on 03-29-2025 HbA1c (Bld) [Mass fraction] 10.8 % High <5.7 [facility] Comment on above: Normal < 5.7 % Predi abetic 5.7 - 6.4 % Diabetic >or= 6.5 % Please note range changes. TSH DL <= 0.005 mIU/L QnOrde red By: Lizet Linares on 03-29-2025 TSH Qn 5.840 uIU/mL High 0.300-4.20 0 [facility] Anion gap in Serum or Plasma Ordered By: Lizet Linares on 03-12-2025 Anion gap [Moles/Vol] 12 mmol/L 03-08 [facility] BUN/creatinine ratioOrdered By: Lizet Linares on 03-12-2025 Urea nitrogen/Creatinine [Mass ratio] 24.9 mg/mg High 08-13 [facility] Carbon dioxide, total [Moles /volume] in Central venous bloodOrdered By: Lizet Linares on 03-12-2025 CO2 [Moles/Vol] 23.0 mmol/L 21.0-32.0 [facility] Chloride assayOrdered By: Junie Linares on 03-12-2025 Chloride [Moles/Vol] 97 mmol/L Low 98-108 [facility] Glomerular filtration rate ( GFR) estimation/1.73 sq m using serum, plasma, or whole bOrdered By: Lizet Linares on 03-12-2025 GFR/1.73 sq M.predicted among non-blacks MDRD (S/P/Bld) [Vol rate/Area] 35 mL/min/{1.73_m2} Low >60 [facility] Comment on above: mL/min/1.73m2 CKD-EP I Creatinine Equation (2020) Potassium measurement (mass/ volume)Ordered By: Lizet Linares on 03-12-2025 Potassium (Unsp spec) [Mass/Vol] 4.3 mmol/L 3.3-5.1 [facility] Serum creatinine measurement (mass/volume)Ordered By: Lizet Linares on 03-12-2025 Creatinine [Mass/Vol] 1.64 mg/dL High 0.70-1.20 [facility] Serum glucose measurement (m ass/volume)Ordered By: Lizet Linares on 03-12-2025 Glucose [Mass/Vol] 428 mg/dL High 70-[address] [facility] Serum or plasma calcium tai urement (mass/volume)Ordered By: Lizet Linares on 03-12-2025 Calcium [Mass/Vol] 8.6 mg/dL 7.6-11.[address] [facility] Serum or plasma urea nitroge n measurement (mass/volume)Ordered By: Lizet Linares on 03-12-2025 Urea nitrogen [Mass/Vol] 41 mg/dL High 4-19 [facility] Sodium levelOrdered By: Holly Linares on 03-12-2025 Sodium [Moles/Vol] 132 mmol/L Low 133-[address] [facility] Bilirubin directOrdered By: Ana Maria Geller on 03-05-2025 Bilirubin.direct [Mass/Vol] 0.12 mg/dL 0.00-0.30 [facility] Bilirubin, totalOrdered By: Ana Maria Geller on 03-05-2025 Bilirubin [Mass/Vol] 0.19 mg/dL 0.00-1.30 [facility] - Chemistry and C hemistry - challengeOrdered By: Ana Maria Geller on 03-05-2025 AST [Catalytic activity/Vol] 23 U/L <32 [facility] No Panel InformationOrdered By: Ana Maria Geller on 03-05-2025 23 U/L <32 [facility] Serum globulin measurementOr dered By: Ana Maria Geller on 03-05-2025 Globulin (S) [Mass/Vol] 2.7 g/dL 2.2-4.2 [facility] Serum or plasma alanine russo otransferase (ALT) measurementOrdered By: Ana Maria Geller on 03-05-2025 ALT [Catalytic activity/Vol] 24 U/L <35 [facility] Serum or plasma albumin tai urement (mass/volume)Ordered By: Ana Maria Geller on 03-05-2025 Albumin [Mass/Vol] 3.4 g/dL 3.4-4.[address] [facility] Serum or plasma alkaline shante sphatase measurementOrdered By: Ana Mraia Geller on 03-05-2025 ALP [Catalytic activity/Vol] 51 U/L 35-104 [facility] Total proteinOrdered By: Porter Geller on 03-05-2025 Protein [Mass/Vol] 6.1 g/dL 5.9-8.[address] [facility] Absolute lymphocyte countOrd ered By: Zack Choi on 01-22-2025 Lymphocytes Auto (Unsp spec) [#/Vol] 2.95 10*3/uL 0.83-4.51 [facility] Absolute neutrophil countOrd ered By: Zack Choi on 01-22-2025 Neutrophils (Bld) [#/Vol] 4.6 10*3/uL 2.0-7.7 [facility] Absolute neutrophil count 4.6 X10^3/uL 2.0-7.7 [facility] Anion gap [Moles/Vol]Ordered By: Zack Choi on 01-22-2025 Anion gap in Serum or Plasma 12 5-15 [facility] Anion gap in Serum or Plasma Ordered By: Zack Choi on 01-22-2025 Anion gap [Moles/Vol] 12 mmol/L 5-15 [facility] Automated lymphocyte count a s percentage of total leukocytesOrdered By: Zack Choi on 01-22-2025 Lymphocytes/100 WBC Auto (Unsp spec) 35.8 % 19-41 [facility] BUN/creatinine ratioOrdered By: Zack Choi on 01-22-2025 Urea nitrogen/Creatinine [Mass ratio] 24.2 mg/mg High 10-20 [facility] BUN/creatinine ratio 24.2 RATIO High 10-20 [facility] Basophil percentageOrdered B y: Zack Choi on 01-22-2025 Basophils/100 WBC (Bld) 0.6 % 0-1 [facility] Basophil percentage 0.6 % 0-1 [facility] Calcium [Mass/Vol]Ordered By : Zack Choi on 01-22-2025 Serum or plasma calcium measurement (mass/volume) 9.4 mg/dL 7.6-11.[address] [facility] Carbon dioxide, total [Moles /volume] in Central venous bloodOrdered By: Zack Choi on 01-22-2025 CO2 [Moles/Vol] 22.3 mmol/L 21.0-32.0 [facility] Carbon dioxide, total [Moles/volume] in Central venous blood 22.3 mmol/L 21.0-32.0 [facility] Chloride assayOrdered By: Albert Choi on 01-22-2025 Chloride [Moles/Vol] 98 mmol/L 98-108 [facility] Chloride assay 98 mmol/L 98-108 [facility] Creatinine [Mass/Vol]Ordered By: Zack Choi on 01-22-2025 Serum creatinine measurement (mass/volume) 1.37 mg/dL High 0.70-1.[address] [facility] Eosinophil percentageOrdered By: Zack Choi on 01-22-2025 Eosinophils/100 WBC (Bld) 1.0 % 0-5 [facility] Eosinophil percentage 1.0 % 0-5 [facility] Erythrocyte distribution wid th (RBC) [Ratio]Ordered By: Zack Choi on 01-22-2025 Erythrocyte distribution width ratio 14.1 % 11.6-14.6 [facility] Erythrocyte distribution wid th ratioOrdered By: Zack Choi on 01-22-2025 Erythrocyte distribution width (RBC) [Ratio] 14.1 % 11.6-14.6 [facility] Erythrocyte distribution wid th standard deviationOrdered By: Zack Choi on 01-22-2025 Erythrocyte distribution width (RBC) [Ratio] 44.8 fl High 35.1-43.9 [facility] Erythrocyte distribution width standard deviation 44.8 fl High 35.1-43.9 [facility] Estimation of creatinine jacqui aranceOrdered By: Zack Choi on 01-22-2025 Estimation of creatinine clearance 43.47 ml/min Low 50-250 [facility] GFR/1.73 sq M.predicted adama g non-blacks MDRD (S/P/Bld) [Vol rate/Area]Ordered By: Zack Choi on 01-22-2025 Glomerular filtration rate (GFR) estimation/1.73 sq m using serum, plasma, or whole b 44 Low >60 [facility] Glomerular filtration rate ( GFR) estimation/1.73 sq m using serum, plasma, or whole bOrdered By: Zack Choi on 01-22-2025 GFR/1.73 sq M.predicted among non-blacks MDRD (S/P/Bld) [Vol rate/Area] 44 mL/min/{1.73_m2} Low >60 [facility] Comment on above: mL/min/1.73m2 CKD-EP I Creatinine Equation (2020) Glucose [Mass/Vol]Ordered By : Zack Choi on 01-22-2025 Serum glucose measurement (mass/volume) 245 mg/dL High 70-99 [facility] Hematocrit Auto (Bld) [Volum e fraction]Ordered By: Zack Choi on 01-22-2025 Hematocrit (Bld) [Volume fraction] 37.0 % 37-47 [facility] Automated blood hematocrit (percentage) 37.0 % 37-47 [facility] Hemoglobin measurementOrdere d By: Zack Choi on 01-22-2025 Hemoglobin (Bld) [Mass/Vol] 12.1 g/dL 12.0-15.0 [facility] Hemoglobin measurement 12.1 g/dL 12.0-15.0 [facility] Immature granulocytes/100 WB C Auto (Bld)Ordered By: Zack Choi on 01-22-2025 Immature granulocytes/100 WBC (Bld) 1.000 % High 0.0-0.9 [facility] Comment on above: IG% - Immature Granu locytes (promyelocytes, myelocytes and metamyelocytes) > 1% indicates that a LEFT SHIFT is Present. Automated immature granulocyte percentage 1.000 % High 0.0-0.9 [facility] Lymphocytes Auto (Unsp spec) [#/Vol]Ordered By: Zack Choi on 01-22-2025 Absolute lymphocyte count 2.95 X10^3/uL 0.83-4. 51 [facility] Lymphocytes/100 WBC Auto (Un sp spec)Ordered By: Zack Choi on 01-22-2025 Automated lymphocyte count as percentage of total leukocytes 35.8 % 19-41 [facility] MCV (RBC) [Entitic vol]Order ed By: Zack Choi on 01-22-2025 MCV (mean corpuscular volume) determination 87.5 fL 81-99 [facility] MCV (mean corpuscular volume ) determinationOrdered By: Zack Choi on 01-22-2025 MCV (RBC) [Entitic vol] 87.5 fL 81-99 [facility] Mean corpuscular hemoglobin (MCH) determinationOrdered By: Zack Choi on 01-22-2025 MCH (RBC) [Entitic mass] 28.6 pg 27.0-32.0 [facility] Mean corpuscular hemoglobin (MCH) determination 28.6 pg 27.0-32.0 [facility] Mean corpuscular hemoglobin concentration (MCHC) determinationOrdered By: Zack Choi on 01-22-2025 MCHC (RBC) [Mass/Vol] 32.7 g/dL 32-36 [facility] Mean corpuscular hemoglobin concentration (MCHC) determination 32.7 g/dL 32-36 [facility] Mean platelet volume determi nationOrdered By: Zack Choi on 01-22-2025 Platelet mean volume (Bld) [Entitic vol] 9.6 fL 6.2-12.0 [facility] Mean platelet volume determination 9.6 fl 6.2-12.0 [facility] Monocyte percentageOrdered B y: Zack Choi on 01-22-2025 Monocytes/100 WBC (Bld) 5.6 % 0-10 [facility] Monocyte percentage 5.6 % 0-10 [facility] Neutrophil percentageOrdered By: Zack Choi on 01-22-2025 Neutrophils/100 WBC (Bld) 56.0 % 47-70 [facility] Neutrophil percentage 56.0 % 47-70 [facility] No Panel InformationOrdered By: Zack Choi on 01-22-2025 Troponin T High Sensitivity 54 ng/L High <14 [facility] Comment on above: Critical Result(s) C alled at 1135: by: JUANA GARDNER TO SANDY. Results read back by same. 54 ng/L High <14 [facility] Nucleated red blood cell per centageOrdered By: Zack Choi on 01-22-2025 Nucleated RBC/100 WBC (Bld) [Ratio] 0 % 0-5 [facility] Nucleated red blood cell percentage 0 % 0-5 [facility] Platelet countOrdered By: Albert Choi on 01-22-2025 Platelets (Bld) [#/Vol] 341 10*3/uL 150-450 [facility] Platelet count 341 K/mm3 150-450 [facility] Potassium (Unsp spec) [Mass/ Vol]Ordered By: Zack Choi on 01-22-2025 Potassium measurement (mass/volume) 4.4 mmol/L 3.3-5.1 [facility] Potassium measurement (mass/ volume)Ordered By: Zack Choi on 01-22-2025 Potassium (Unsp spec) [Mass/Vol] 4.4 mmol/L 3.3-5.1 [facility] RBC Auto (Bld) [#/Vol]Ordere d By: Zack Choi on 01-22-2025 RBC (Bld) [#/Vol] 4.23 10*6/uL 4.2-5.4 [facility] Automated blood erythrocyte count 4.23 M/mm3 4.2-5.4 [facility] Serum creatinine measurement (mass/volume)Ordered By: Zack Choi on 01-22-2025 Creatinine [Mass/Vol] 1.37 mg/dL High 0.70-1.20 [facility] Serum glucose measurement (m ass/volume)Ordered By: Zack Choi on 01-22-2025 Glucose [Mass/Vol] 245 mg/dL High 70-[address] [facility] Serum or plasma calcium tai urement (mass/volume)Ordered By: Zack Choi on 01-22-2025 Calcium [Mass/Vol] 9.4 mg/dL 7.6-11.[address] [facility] Serum or plasma urea nitroge n measurement (mass/volume)Ordered By: Zack Choi on 01-22-2025 Urea nitrogen [Mass/Vol] 33 mg/dL High - [facility] Sodium levelOrdered By: Sherman Choi on 01-22-2025 Sodium [Moles/Vol] 133 mmol/L 133-[address] [facility] Sodium level 133 mmol/L 133-145 [facility] Troponin T.cardiac High sens itivity method [Mass/Vol]Ordered By: Zack Choi on 01-22-2025 Troponin T.cardiac [Mass/volume] in Serum or Plasma by High sensitivity method 48 ng/L High <14 [facility] Troponin T.cardiac [Mass/vol ume] in Serum or Plasma by High sensitivity methodOrdered By: Zack Choi on 01-22-2025 Troponin T.cardiac High sensitivity method [Mass/Vol] 48 ng/L High <14 [facility] Urea nitrogen [Mass/Vol]Orde red By: Zack Choi on 01-22-2025 Serum or plasma urea nitrogen measurement (mass/volume) 33 mg/dL High - [facility] White blood cell (WBC) count Ordered By: Zack Choi on 01-22-2025 WBC (Bld) [#/Vol] 8.2 10*3/uL 4.4-11.[address] [facility] White blood cell (WBC) count 8.2 K/mm3 4.4-11.0 [facility] HbA1c (Bld) [Mass fraction]O rdered By: Lizet Linares on 01-05-2025 Hemoglobin A1c percentage 10.2 % >5.7 [facility] Hemoglobin A1c percentageOrd ered By: Lizet Linares on 01-05-2025 HbA1c (Bld) [Mass fraction] 10.2 % >5.7 [facility] Creatinine (U) [Mass/Vol]Ord ered By: Lizet Linares on 12-07-2024 Urine creatinine measurement (mass/volume) 38.20 mg/dL NO RANGE EST. [facility] Random urine microalbumin me asurementOrdered By: Lizet Linares on 12-07-2024 Random urine microalbumin measurement 9.2 mg/L NO RANGE EST. [facility] Urine albumin/creatinine rat io for detection of microalbuminuriaOrdered By: Lizet Linares on 12-07-2024 Urine albumin/creatinine ratio for detection of microalbuminuria 24.0 mg/g CRE <30 [facility] Urine creatinine measurement (mass/volume)Ordered By: Lizet Linares on 12-07-2024 Creatinine (U) [Mass/Vol] 38.20 mg/dL NO RANGE EST. [facility] Cholesterol [Mass/Vol]Ordere d By: Lizet Linares on 11-30-2024 Serum or plasma cholesterol measurement (mass/volume) 91 mg/dL <200 [facility] High density lipoprotein (HD L) measurementOrdered By: Lizet Linares on 11-30-2024 Cholesterol in HDL [Mass/Vol] 29 mg/dL Low >40 [facility] Comment on above: The drugs N-Acetylcy steine and Metamizole may falsely depress this assay. Reference Range HDL <40 mg/dL Low HDL Cholesterol HDL >or= 60 mg/dL High HDL Cholesterol High density lipoprotein (HDL) measurement 29 mg/dL Low >40 [facility] Low density lipoprotein (LDL ) cholesterol measurementOrdered By: Lizet Linares on 11-30-2024 Cholesterol in LDL [Mass/Vol] 24 mg/dL 0-130 [facility] Low density lipoprotein (LDL) cholesterol measurement 24 mg/dL 0-130 [facility] Serum or plasma cholesterol measurement (mass/volume)Ordered By: Lizet Linares on 11-30-2024 Cholesterol [Mass/Vol] 91 mg/dL <200 [facility] Comment on above: <200 mg/dL Desirable 200-240 mg/dL Borderline >240 mg/dL High Risk Serum or plasma thyroid stim ulating hormone (TSH) measurement (units/volume)Ordered By: Lizet Linares on 11-30-2024 TSH Qn 2.550 uIU/mL 0.358-3.74 0 [facility] TSH QnOrdered By: Lizet Linares on 11-30-2024 Serum or plasma thyroid stimulating hormone (TSH) measurement (units/volume) 2.550 uIU/mL 0.358-3.74 0 [facility] Triglycerides measurementOrd ered By: Lizet Linares on 11-30-2024 Triglyceride [Mass/Vol] 191 mg/dL <199 [facility] Comment on above: The drugs N-Acetylcy steine and Metamizole may falsely depress this assay.Serum Triglycerides Reference Interval Normal <150 mg/dL Borderline high 150 - 199 mg/dL High 200 - 499 mg/dL Very High > or = 500 mg/dL Triglycerides measurement 191 mg/dL <199 [facility] Very low density lipoprotein (VLDL) cholesterol measurementOrdered By: Lizet Linares on 11-30-2024 Very low density lipoprotein (VLDL) cholesterol measurement 38 mg/dL 5-40 [facility] Very low density lipoprotein (VLDL) cholesterol measurement 38 mg/dL 5-40 [facility] Absolute neutrophil countOrd ered By: Lizet Linares on 11-24-2024 Absolute neutrophil count 4.1 X10^3/uL 2.0-7.7 [facility] Basophil percentageOrdered B y: Lizet Linares on 11-24-2024 Basophil percentage 0.6 % 0-1 [facility] Blood urea nitrogen (BUN)/cr eatinine ratioOrdered By: Lizet Linares on 11-24-2024 Blood urea nitrogen (BUN)/creatinine ratio 22.2 RATIO High 10-20 [facility] Calcium [Mass/Vol]Ordered By : Lizet Linares on 11-24-2024 Serum or plasma calcium measurement (mass/volume) 9.2 mg/dL 8.5-10.[address] [facility] Carbon dioxide measurementOr dered By: Lizet Linares on 11-24-2024 Carbon dioxide measurement 27.0 mmol/L 21.0-32.0 [facility] Chloride measurementOrdered By: Lizet Linares on 11-24-2024 Chloride measurement 98 mmol/L 98-107 [facility] Creatinine [Mass/Vol]Ordered By: Lizet Linares on 11-24-2024 Serum or plasma creatinine measurement (mass/volume) 1.53 mg/dL High 0.55-1.02 [facility] Eosinophil percentageOrdered By: Lizet Linares on 11-24-2024 Eosinophil percentage 1.5 % 0-5 [facility] Erythrocyte distribution wid th (RBC) [Ratio]Ordered By: Lizet Linares on 11-24-2024 Erythrocyte distribution width ratio 13.9 % 11.6-14.6 [facility] Erythrocyte distribution wid th standard deviationOrdered By: Lizet Linares on 11-24-2024 Erythrocyte distribution width standard deviation 45.1 fl High 35.1-43.9 [facility] Estimated glomerular filtrat ion rate (GFR) AmericanOrdered By: Lizet Linares on 11-24-2024 Estimated glomerular filtration rate (GFR) 44 mL/min Low >60 [facility] Glomerular filtration rate ( GFR) estimationOrdered By: Lizet Linares on 11-24-2024 Glomerular filtration rate (GFR) estimation 37 mL/min Low >60 [facility] Glucose measurementOrdered B y: Lizet Linares on 11-24-2024 Glucose measurement 402 mg/dL High 74-106 [facility] Hematocrit Auto (Bld) [Volum e fraction]Ordered By: Lizet Linares on 11-24-2024 Automated blood hematocrit (percentage) 32.9 % Low 37-47 [facility] Hemoglobin measurementOrdere d By: Lizet Linares on 11-24-2024 Hemoglobin measurement 10.2 g/dL Low 12.0-15.0 [facility] Immature granulocytes/100 WB C Auto (Bld)Ordered By: Lizet Linares on 11-24-2024 Automated immature granulocyte percentage 0.600 % 0.0-0.9 [facility] Lymphocytes Auto (Unsp spec) [#/Vol]Ordered By: Lizet Linares on 11-24-2024 Absolute lymphocyte count 2.20 X10^3/uL 0.83-4. 51 [facility] Lymphocytes/100 WBC Auto (Un sp spec)Ordered By: Lizet Linares on 11-24-2024 Automated lymphocyte count as percentage of total leukocytes 32.2 % 19-41 [facility] MCV (RBC) [Entitic vol]Order ed By: Lizet Linares on 11-24-2024 MCV (mean corpuscular volume) determination 89.2 fL 81-99 [facility] Mean corpuscular hemoglobin (MCH) determinationOrdered By: Lizet Linares on 11-24-2024 Mean corpuscular hemoglobin (MCH) determination 27.6 pg 27.0-32.0 [facility] Mean corpuscular hemoglobin concentration (MCHC) determinationOrdered By: Lizet Linares on 11-24-2024 Mean corpuscular hemoglobin concentration (MCHC) determination 31.0 g/dL Low 32-36 [facility] Mean platelet volume determi nationOrdered By: Lizet Linares on 11-24-2024 Mean platelet volume determination 9.3 fl 6.2-12.0 [facility] Monocyte percentageOrdered B y: Lizet Linares on 11-24-2024 Monocyte percentage 5.1 % 0-10 [facility] Neutrophil percentageOrdered By: Lizet Linares on 11-24-2024 Neutrophil percentage 60.0 % 47-70 [facility] Nucleated red blood cell per centageOrdered By: Lizet Linares on 11-24-2024 Nucleated red blood cell percentage 0 % 0-5 [facility] Platelet countOrdered By: Junie Linares on 11-24-2024 Platelet count 311 K/mm3 150-450 [facility] Potassium measurementOrdered By: Lizet Linares on 11-24-2024 Potassium measurement 4.7 mmol/L 3.5-5.1 [facility] RBC Auto (Bld) [#/Vol]Ordere d By: Lizet Linares on 11-24-2024 Automated blood erythrocyte count 3.69 M/mm3 Low 4.2-5.4 [facility] Serum anion gap measurementO rdered By: Lizet Linares on 11-24-2024 Serum anion gap measurement 6 5-15 [facility] Sodium levelOrdered By: Holly Linares on 11-24-2024 Sodium level 131 mmol/L Low 136-145 [facility] Urea nitrogen [Mass/Vol]Orde red By: Lizet Linares on 11-24-2024 Serum or plasma urea nitrogen measurement (mass/volume) 34 mg/dL High 7-18 [facility] White blood cell (WBC) count Ordered By: Lizet Linares on 11-24-2024 White blood cell (WBC) count 6.8 K/mm3 4.4-11.0 [facility] Absolute neutrophil countOrd ered By: Lizet Linares on 11-17-2024 Absolute neutrophil count 3.2 X10^3/uL 2.0-7.7 [facility] Basophil percentageOrdered B y: Lizet Linares on 11-17-2024 Basophil percentage 0.7 % 0-1 [facility] Blood urea nitrogen (BUN)/cr eatinine ratioOrdered By: Lizet Linares on 11-17-2024 Blood urea nitrogen (BUN)/creatinine ratio 22.6 RATIO High 10-20 [facility] Calcium [Mass/Vol]Ordered By : Lizet Linares on 11-17-2024 Serum or plasma calcium measurement (mass/volume) 8.6 mg/dL 8.5-10.[address] [facility] Carbon dioxide measurementOr dered By: Lizet Linares on 11-17-2024 Carbon dioxide measurement 26.0 mmol/L 21.0-32.0 [facility] Chloride measurementOrdered By: Lizet Linares on 11-17-2024 Chloride measurement 103 mmol/L 98-107 [facility] Creatinine [Mass/Vol]Ordered By: Lizet Linares on 11-17-2024 Serum or plasma creatinine measurement (mass/volume) 1.37 mg/dL High 0.55-1.02 [facility] Eosinophil percentageOrdered By: Lizet Linares on 11-17-2024 Eosinophil percentage 1.5 % 0-5 [facility] Erythrocyte distribution wid th (RBC) [Ratio]Ordered By: Lizet Linares on 11-17-2024 Erythrocyte distribution width ratio 13.8 % 11.6-14.6 [facility] Erythrocyte distribution wid th standard deviationOrdered By: Lizet Linares on 11-17-2024 Erythrocyte distribution width standard deviation 44.4 fl High 35.1-43.9 [facility] Estimated glomerular filtrat ion rate (GFR) AmericanOrdered By: Lizet Linares on 11-17-2024 Estimated glomerular filtration rate (GFR) 50 mL/min Low >60 [facility] Glomerular filtration rate ( GFR) estimationOrdered By: Lizet Linares on 11-17-2024 Glomerular filtration rate (GFR) estimation 42 mL/min Low >60 [facility] Glucose measurementOrdered B y: Lizet Linares on 11-17-2024 Glucose measurement 304 mg/dL High 74-106 [facility] Hematocrit Auto (Bld) [Volum e fraction]Ordered By: Lizet Linares on 11-17-2024 Automated blood hematocrit (percentage) 32.3 % Low 37-47 [facility] Hemoglobin measurementOrdere d By: Lizet Linares on 11-17-2024 Hemoglobin measurement 10.1 g/dL Low 12.0-15.0 [facility] Immature granulocytes/100 WB C Auto (Bld)Ordered By: Lizet Linares on 11-17-2024 Automated immature granulocyte percentage 0.300 % 0.0-0.9 [facility] Lymphocytes Auto (Unsp spec) [#/Vol]Ordered By: Lizet Linares on 11-17-2024 Absolute lymphocyte count 2.18 X10^3/uL 0.83-4. 51 [facility] Lymphocytes/100 WBC Auto (Un sp spec)Ordered By: Lizet Linares on 11-17-2024 Automated lymphocyte count as percentage of total leukocytes 36.9 % 19-41 [facility] MCV (RBC) [Entitic vol]Order ed By: Lizet Linares on 11-17-2024 MCV (mean corpuscular volume) determination 87.5 fL 81-99 [facility] Mean corpuscular hemoglobin (MCH) determinationOrdered By: Lizet Linares on 11-17-2024 Mean corpuscular hemoglobin (MCH) determination 27.4 pg 27.0-32.0 [facility] Mean corpuscular hemoglobin concentration (MCHC) determinationOrdered By: Lizet Linares on 11-17-2024 Mean corpuscular hemoglobin concentration (MCHC) determination 31.3 g/dL Low 32-36 [facility] Mean platelet volume determi nationOrdered By: Lizet Linares on 11-17-2024 Mean platelet volume determination 9.4 fl 6.2-12.0 [facility] Monocyte percentageOrdered B y: Lizet Linares on 11-17-2024 Monocyte percentage 5.8 % 0-10 [facility] Neutrophil percentageOrdered By: Lizet Linares on 11-17-2024 Neutrophil percentage 54.8 % 47-70 [facility] Nucleated red blood cell per centageOrdered By: Lizet Linares on 11-17-2024 Nucleated red blood cell percentage 0 % 0-5 [facility] Platelet countOrdered By: Junie Linares on 11-17-2024 Platelet count 309 K/mm3 150-450 [facility] Potassium measurementOrdered By: Lizet Linares on 11-17-2024 Potassium measurement 4.3 mmol/L 3.5-5.1 [facility] RBC Auto (Bld) [#/Vol]Ordere d By: Lizet Linares on 11-17-2024 Automated blood erythrocyte count 3.69 M/mm3 Low 4.2-5.4 [facility] Serum anion gap measurementO rdered By: Lizet Linares on 11-17-2024 Serum anion gap measurement 6 5-15 [facility] Sodium levelOrdered By: Holly Linares on 11-17-2024 Sodium level 135 mmol/L Low 136-145 [facility] Urea nitrogen [Mass/Vol]Orde red By: Lizet Linares on 11-17-2024 Serum or plasma urea nitrogen measurement (mass/volume) 31 mg/dL High 7-18 [facility] White blood cell (WBC) count Ordered By: Lizet Linares on 11-17-2024 White blood cell (WBC) count 5.9 K/mm3 4.4-11.0 [facility] Absolute neutrophil countOrd ered By: Lizet Linares on 11-10-2024 Absolute neutrophil count 4.5 X10^3/uL 2.0-7.7 [facility] Basophil percentageOrdered B y: Lizet Linares on 11-10-2024 Basophil percentage 0.7 % 0-1 [facility] Blood urea nitrogen (BUN)/cr eatinine ratioOrdered By: Lizet Linares on 11-10-2024 Blood urea nitrogen (BUN)/creatinine ratio 16.4 RATIO 10-20 [facility] Calcium [Mass/Vol]Ordered By : Lizet Linares on 11-10-2024 Serum or plasma calcium measurement (mass/volume) 9.1 mg/dL 8.5-10.[address] [facility] Carbon dioxide measurementOr dered By: Lizet Linares on 11-10-2024 Carbon dioxide measurement 27.0 mmol/L 21.0-32.0 [facility] Chloride measurementOrdered By: Lizet Linares on 11-10-2024 Chloride measurement 100 mmol/L 98-107 [facility] Creatinine [Mass/Vol]Ordered By: Lizet Linares on 11-10-2024 Serum or plasma creatinine measurement (mass/volume) 1.40 mg/dL High 0.55-1.02 [facility] Eosinophil percentageOrdered By: Lizet Linares on 11-10-2024 Eosinophil percentage 1.1 % 0-5 [facility] Erythrocyte distribution wid th (RBC) [Ratio]Ordered By: Lizet Linares on 11-10-2024 Erythrocyte distribution width ratio 13.8 % 11.6-14.6 [facility] Erythrocyte distribution wid th standard deviationOrdered By: Lizet Linares on 11-10-2024 Erythrocyte distribution width standard deviation 45.1 fl High 35.1-43.9 [facility] Estimated glomerular filtrat ion rate (GFR) AmericanOrdered By: Lizet Linares on 11-10-2024 Estimated glomerular filtration rate (GFR) 49 mL/min Low >60 [facility] Glomerular filtration rate ( GFR) estimationOrdered By: Lizet Linares on 11-10-2024 Glomerular filtration rate (GFR) estimation 41 mL/min Low >60 [facility] Glucose measurementOrdered B y: Lizet Linares on 11-10-2024 Glucose measurement 342 mg/dL High 74-106 [facility] Hematocrit Auto (Bld) [Volum e fraction]Ordered By: Lizet Linares on 11-10-2024 Automated blood hematocrit (percentage) 32.9 % Low 37-47 [facility] Hemoglobin measurementOrdere d By: Lizet Linares on 11-10-2024 Hemoglobin measurement 10.4 g/dL Low 12.0-15.0 [facility] Immature granulocytes/100 WB C Auto (Bld)Ordered By: Lizet Linares on 11-10-2024 Automated immature granulocyte percentage 0.600 % 0.0-0.9 [facility] Lymphocytes Auto (Unsp spec) [#/Vol]Ordered By: Lizet Linares on 11-10-2024 Absolute lymphocyte count 2.01 X10^3/uL 0.83-4. 51 [facility] Lymphocytes/100 WBC Auto (Un sp spec)Ordered By: Lizet Linares on 11-10-2024 Automated lymphocyte count as percentage of total leukocytes 28.2 % 19-41 [facility] MCV (RBC) [Entitic vol]Order ed By: Lizet Linares on 11-10-2024 MCV (mean corpuscular volume) determination 88.9 fL 81-99 [facility] Mean corpuscular hemoglobin (MCH) determinationOrdered By: Lizet Linares on 11-10-2024 Mean corpuscular hemoglobin (MCH) determination 28.1 pg 27.0-32.0 [facility] Mean corpuscular hemoglobin concentration (MCHC) determinationOrdered By: Lizet Linares on 11-10-2024 Mean corpuscular hemoglobin concentration (MCHC) determination 31.6 g/dL Low 32-36 [facility] Mean platelet volume determi nationOrdered By: Lizet Linares on 11-10-2024 Mean platelet volume determination 10.0 fl 6.2-12.0 [facility] Monocyte percentageOrdered B y: Lizet Linares on 11-10-2024 Monocyte percentage 6.0 % 0-10 [facility] Neutrophil percentageOrdered By: Lizet Linares on 11-10-2024 Neutrophil percentage 63.4 % 47-70 [facility] Nucleated red blood cell per centageOrdered By: Lizet Linares on 11-10-2024 Nucleated red blood cell percentage 0 % 0-5 [facility] Platelet countOrdered By: Junie Linares on 11-10-2024 Platelet count 334 K/mm3 150-450 [facility] Potassium measurementOrdered By: Lizet Linares on 11-10-2024 Potassium measurement 4.4 mmol/L 3.5-5.1 [facility] RBC Auto (Bld) [#/Vol]Ordere d By: Lizet Linares on 11-10-2024 Automated blood erythrocyte count 3.70 M/mm3 Low 4.2-5.4 [facility] Serum anion gap measurementO rdered By: Lizet Linares on 11-10-2024 Serum anion gap measurement 7 5-15 [facility] Sodium levelOrdered By: Holly Linares on 11-10-2024 Sodium level 134 mmol/L Low 136-145 [facility] Urea nitrogen [Mass/Vol]Orde red By: Lizet Linares on 11-10-2024 Serum or plasma urea nitrogen measurement (mass/volume) 23 mg/dL High 7-18 [facility] White blood cell (WBC) count Ordered By: Lizet Linares on 11-10-2024 White blood cell (WBC) count 7.1 K/mm3 4.4-11.0 [facility] Absolute neutrophil countOrd ered By: Lizet Linares on 11-03-2024 Absolute neutrophil count 3.0 X10^3/uL 2.0-7.7 [facility] Basophil percentageOrdered B y: Lizet Linares on 11-03-2024 Basophil percentage 0.5 % 0-1 [facility] Blood urea nitrogen (BUN)/cr eatinine ratioOrdered By: Lizet Linares on 11-03-2024 Blood urea nitrogen (BUN)/creatinine ratio 21.3 RATIO High 10-20 [facility] Calcium [Mass/Vol]Ordered By : Lizet Linares on 11-03-2024 Serum or plasma calcium measurement (mass/volume) 9.1 mg/dL 8.5-10.[address] [facility] Carbon dioxide measurementOr dered By: Lizet Linares on 11-03-2024 Carbon dioxide measurement 26.0 mmol/L 21.0-32.0 [facility] Chloride measurementOrdered By: Lizet Linares on 11-03-2024 Chloride measurement 100 mmol/L 98-107 [facility] Creatinine [Mass/Vol]Ordered By: Lizet Linares on 11-03-2024 Serum or plasma creatinine measurement (mass/volume) 1.27 mg/dL High 0.55-1.02 [facility] Eosinophil percentageOrdered By: Lizet Linares on 11-03-2024 Eosinophil percentage 2.4 % 0-5 [facility] Erythrocyte distribution wid th (RBC) [Ratio]Ordered By: Lizet Linares on 11-03-2024 Erythrocyte distribution width ratio 13.9 % 11.6-14.6 [facility] Erythrocyte distribution wid th standard deviationOrdered By: Lizet Linares on 11-03-2024 Erythrocyte distribution width standard deviation 45.0 fl High 35.1-43.9 [facility] Estimated glomerular filtrat ion rate (GFR) AmericanOrdered By: Lizet Linares on 11-03-2024 Estimated glomerular filtration rate (GFR) 55 mL/min Low >60 [facility] Glomerular filtration rate ( GFR) estimationOrdered By: Lizet Linares on 11-03-2024 Glomerular filtration rate (GFR) estimation 45 mL/min Low >60 [facility] Glucose measurementOrdered B y: Lizet Linares on 11-03-2024 Glucose measurement 352 mg/dL High 74-106 [facility] Hematocrit Auto (Bld) [Volum e fraction]Ordered By: Lizet Linares on 11-03-2024 Automated blood hematocrit (percentage) 33.0 % Low 37-47 [facility] Hemoglobin measurementOrdere d By: Lizet Linares on 11-03-2024 Hemoglobin measurement 10.2 g/dL Low 12.0-15.0 [facility] Immature granulocytes/100 WB C Auto (Bld)Ordered By: Lizet Linares on 11-03-2024 Automated immature granulocyte percentage 0.500 % 0.0-0.9 [facility] Lymphocytes Auto (Unsp spec) [#/Vol]Ordered By: Lizet Linares on 11-03-2024 Absolute lymphocyte count 1.95 X10^3/uL 0.83-4. 51 [facility] Lymphocytes/100 WBC Auto (Un sp spec)Ordered By: Lizet Linares on 11-03-2024 Automated lymphocyte count as percentage of total leukocytes 35.6 % 19-41 [facility] MCV (RBC) [Entitic vol]Order ed By: Lizet Linares on 11-03-2024 MCV (mean corpuscular volume) determination 89.2 fL 81-99 [facility] Mean corpuscular hemoglobin (MCH) determinationOrdered By: Lizet Linares on 11-03-2024 Mean corpuscular hemoglobin (MCH) determination 27.6 pg 27.0-32.0 [facility] Mean corpuscular hemoglobin concentration (MCHC) determinationOrdered By: Lizet Linares on 11-03-2024 Mean corpuscular hemoglobin concentration (MCHC) determination 30.9 g/dL Low 32-36 [facility] Mean platelet volume determi nationOrdered By: Lizet Linares on 11-03-2024 Mean platelet volume determination 9.6 fl 6.2-12.0 [facility] Monocyte percentageOrdered B y: Lizet Linares on 11-03-2024 Monocyte percentage 6.4 % 0-10 [facility] Neutrophil percentageOrdered By: Lizet Linares on 11-03-2024 Neutrophil percentage 54.6 % 47-70 [facility] Nucleated red blood cell per centageOrdered By: Lizet Linares on 11-03-2024 Nucleated red blood cell percentage 0 % 0-5 [facility] Platelet countOrdered By: Junie Linares on 11-03-2024 Platelet count 331 K/mm3 150-450 [facility] Potassium measurementOrdered By: Lizet Linares on 11-03-2024 Potassium measurement 4.1 mmol/L 3.5-5.1 [facility] RBC Auto (Bld) [#/Vol]Ordere d By: Lizet Linares on 11-03-2024 Automated blood erythrocyte count 3.70 M/mm3 Low 4.2-5.4 [facility] Serum anion gap measurementO rdered By: Lizet Linares on 11-03-2024 Serum anion gap measurement 6 5-15 [facility] Sodium levelOrdered By: Holly Linares on 11-03-2024 Sodium level 133 mmol/L Low 136-145 [facility] Urea nitrogen [Mass/Vol]Orde red By: Lizet Linares on 11-03-2024 Serum or plasma urea nitrogen measurement (mass/volume) 27 mg/dL High 7-18 [facility] White blood cell (WBC) count Ordered By: Lizet Linares on 11-03-2024 White blood cell (WBC) count 5.5 K/mm3 4.4-11.0 [facility] TSH QnOrdered By: Lizet Linares on 11-01-2024 Serum or plasma thyroid stimulating hormone (TSH) measurement (units/volume) 2.030 uIU/mL 0.358-3.74 0 [facility] Absolute neutrophil countOrd ered By: Lizet Linares on 10-27-2024 Absolute neutrophil count 3.1 X10^3/uL 2.0-7.7 [facility] Basophil percentageOrdered B y: Lizet Linares on 10-27-2024 Basophil percentage 0.4 % 0-1 [facility] Blood urea nitrogen (BUN)/cr eatinine ratioOrdered By: Lizet Linares on 10-27-2024 Blood urea nitrogen (BUN)/creatinine ratio 17.7 RATIO 10-20 [facility] Calcium [Mass/Vol]Ordered By : Lizet Linares on 10-27-2024 Serum or plasma calcium measurement (mass/volume) 8.3 mg/dL Low 8.5-10.[address] [facility] Carbon dioxide measurementOr dered By: Lizet Linares on 10-27-2024 Carbon dioxide measurement 25.0 mmol/L 21.0-32.0 [facility] Chloride measurementOrdered By: Lizet Linares on 10-27-2024 Chloride measurement 100 mmol/L 98-107 [facility] Creatinine [Mass/Vol]Ordered By: Lizet iLnares on 10-27-2024 Serum or plasma creatinine measurement (mass/volume) 1.41 mg/dL High 0.55-1.02 [facility] Eosinophil percentageOrdered By: Lizet Linares on 10-27-2024 Eosinophil percentage 2.4 % 0-5 [facility] Erythrocyte distribution wid th (RBC) [Ratio]Ordered By: Lizet Linares on 10-27-2024 Erythrocyte distribution width ratio 13.9 % 11.6-14.6 [facility] Erythrocyte distribution wid th standard deviationOrdered By: Lizet Linares on 10-27-2024 Erythrocyte distribution width standard deviation 44.4 fl High 35.1-43.9 [facility] Estimated glomerular filtrat ion rate (GFR) AmericanOrdered By: Lizet Linares on 10-27-2024 Estimated glomerular filtration rate (GFR) 49 mL/min Low >60 [facility] Glomerular filtration rate ( GFR) estimationOrdered By: Lizet Linares on 10-27-2024 Glomerular filtration rate (GFR) estimation 40 mL/min Low >60 [facility] Glucose measurementOrdered B y: Lizet Linares on 10-27-2024 Glucose measurement 425 mg/dL High 74-106 [facility] Hematocrit Auto (Bld) [Volum e fraction]Ordered By: Lizet Linares on 10-27-2024 Automated blood hematocrit (percentage) 28.7 % Low 37-47 [facility] Hemoglobin measurementOrdere d By: Lizet Linares on 10-27-2024 Hemoglobin measurement 9.2 g/dL Low 12.0-15.0 [facility] Immature granulocytes/100 WB C Auto (Bld)Ordered By: Lizet Linares on 10-27-2024 Automated immature granulocyte percentage 0.400 % 0.0-0.9 [facility] Lymphocytes Auto (Unsp spec) [#/Vol]Ordered By: Lizet Linares on 10-27-2024 Absolute lymphocyte count 1.77 X10^3/uL 0.83-4. 51 [facility] Lymphocytes/100 WBC Auto (Un sp spec)Ordered By: Lizet Linares on 10-27-2024 Automated lymphocyte count as percentage of total leukocytes 32.8 % 19-41 [facility] MCV (RBC) [Entitic vol]Order ed By: Lizet Linares on 10-27-2024 MCV (mean corpuscular volume) determination 87.8 fL 81-99 [facility] Mean corpuscular hemoglobin (MCH) determinationOrdered By: Lizet Linares on 10-27-2024 Mean corpuscular hemoglobin (MCH) determination 28.1 pg 27.0-32.0 [facility] Mean corpuscular hemoglobin concentration (MCHC) determinationOrdered By: Lizet Linares on 10-27-2024 Mean corpuscular hemoglobin concentration (MCHC) determination 32.1 g/dL 32-36 [facility] Mean platelet volume determi nationOrdered By: Lizet Linares on 10-27-2024 Mean platelet volume determination 10.1 fl 6.2-12.0 [facility] Monocyte percentageOrdered B y: Lizet Linares on 10-27-2024 Monocyte percentage 5.9 % 0-10 [facility] Neutrophil percentageOrdered By: Lizet Linares on 10-27-2024 Neutrophil percentage 58.1 % 47-70 [facility] Nucleated red blood cell per centageOrdered By: Lizet Linares on 10-27-2024 Nucleated red blood cell percentage 0 % 0-5 [facility] Platelet countOrdered By: Junie Linares on 10-27-2024 Platelet count 292 K/mm3 150-450 [facility] Potassium measurementOrdered By: Lizet Linares on 10-27-2024 Potassium measurement 4.0 mmol/L 3.5-5.1 [facility] RBC Auto (Bld) [#/Vol]Ordere d By: Lizet Linares on 10-27-2024 Automated blood erythrocyte count 3.27 M/mm3 Low 4.2-5.4 [facility] Serum anion gap measurementO rdered By: Lizet Linares on 10-27-2024 Serum anion gap measurement 8 5-15 [facility] Sodium levelOrdered By: Holly Linares on 10-27-2024 Sodium level 132 mmol/L Low 136-145 [facility] Urea nitrogen [Mass/Vol]Orde red By: Lizet Linares on 10-27-2024 Serum or plasma urea nitrogen measurement (mass/volume) 25 mg/dL High 7-18 [facility] White blood cell (WBC) count Ordered By: Lizet Linares on 10-27-2024 White blood cell (WBC) count 5.4 K/mm3 4.4-11.0 [facility] ALP [Catalytic activity/Vol] Ordered By: Salvador Campbell on 10-24-2024 Serum or plasma alkaline phosphatase measurement 49 U/L 45-117 [facility] ALT [Catalytic activity/Vol] Ordered By: Salvador Campbell on 10-24-2024 Serum or plasma alanine aminotransferase (ALT) measurement 25 U/L 13-56 [facility] Absolute neutrophil countOrd ered By: Salvador Campbell on 10-24-2024 Absolute neutrophil count 4.0 X10^3/uL 2.0-7.7 [facility] Albumin [Mass/Vol]Ordered By : Salvador Campbell on 10-24-2024 Serum or plasma albumin measurement (mass/volume) 3.0 g/dL Low 3.2-5.[address] [facility] Albumin to globulin ratioOrd ered By: Salvador Campbell on 10-24-2024 Albumin to globulin ratio 0.8 RATIO Low 0.9-2.4 [facility] Basophil percentageOrdered B y: Salvador Campbell on 10-24-2024 Basophil percentage 0.7 % 0-1 [facility] Bilirubin, totalOrdered By: Salvador Campbell on 10-24-2024 Bilirubin, total 0.30 mg/dL 0.20-1.00 [facility] Blood urea nitrogen (BUN)/cr eatinine ratioOrdered By: Salvador Campbell on 10-24-2024 Blood urea nitrogen (BUN)/creatinine ratio 21.1 RATIO High 10-20 [facility] Calcium [Mass/Vol]Ordered By : Salvador Campbell on 10-24-2024 Serum or plasma calcium measurement (mass/volume) 8.8 mg/dL 8.5-10.[address] [facility] Carbon dioxide measurementOr dered By: Salvador Campbell on 10-24-2024 Carbon dioxide measurement 26.0 mmol/L 21.0-32.0 [facility] Chloride measurementOrdered By: Salvador Campbell on 10-24-2024 Chloride measurement 100 mmol/L 98-107 [facility] Clarity (U)Ordered By: Natan Campbell on 10-24-2024 Urine clarity Clear Clear [facility] Color (U)Ordered By: Salvador Campbell on 10-24-2024 Urine color determination Yellow Yellow [facility] Creatinine [Mass/Vol]Ordered By: Salvador Campbell on 10-24-2024 Serum or plasma creatinine measurement (mass/volume) 1.28 mg/dL High 0.55-1.02 [facility] Eosinophil percentageOrdered By: Salvador Campbell on 10-24-2024 Eosinophil percentage 2.2 % 0-5 [facility] Epithelial cells.squamous LM Ql (Urine sed)Ordered By: Salvador Campbell on 10-24-2024 Squamous epithelial cells detection in urine sediment by light microscopy 0-5 SEEN /hpf 5-10 [facility] Erythrocyte distribution wid th (RBC) [Ratio]Ordered By: Salvador Campbell on 10-24-2024 Erythrocyte distribution width ratio 13.6 % 11.6-14.6 [facility] Erythrocyte distribution wid th standard deviationOrdered By: Salvador Campbell on 10-24-2024 Erythrocyte distribution width standard deviation 44.1 fl High 35.1-43.9 [facility] Estimated glomerular filtrat ion rate (GFR) AmericanOrdered By: Salvador Campbell on 10-24-2024 Estimated glomerular filtration rate (GFR) 55 mL/min Low >60 [facility] Estimation of creatinine jacqui aranceOrdered By: Salvador Campbell on 10-24-2024 Estimation of creatinine clearance 46.41 ml/min [facility] Glomerular filtration rate ( GFR) estimationOrdered By: Salvador Campbell on 10-24-2024 Glomerular filtration rate (GFR) estimation 45 mL/min Low >60 [facility] Glucose Ql (U)Ordered By: Malachi Campbell on 10-24-2024 Urine glucose detection 250 mg/dl High Normal [facility] Glucose measurementOrdered B y: Salvador Campbell on 10-24-2024 Glucose measurement 328 mg/dL High 74-106 [facility] Hematocrit Auto (Bld) [Volum e fraction]Ordered By: Salvador Campbell on 10-24-2024 Automated blood hematocrit (percentage) 33.6 % Low 37-47 [facility] Hemoglobin measurementOrdere d By: Salvador Campbell on 10-24-2024 Hemoglobin measurement 10.4 g/dL Low 12.0-15.0 [facility] Immature granulocytes/100 WB C Auto (Bld)Ordered By: Salvador Campbell on 10-24-2024 Automated immature granulocyte percentage 0.900 % 0.0-0.9 [facility] Lactic acid measurementOrder ed By: Salvador Campbell on 10-24-2024 Lactic acid measurement 1.7 mmol/L 0.4-2.0 [facility] Lymphocytes Auto (Unsp spec) [#/Vol]Ordered By: Salvador Campbell on 10-24-2024 Absolute lymphocyte count 2.05 X10^3/uL 0.83-4. 51 [facility] Lymphocytes/100 WBC Auto (Un sp spec)Ordered By: Salvador Campbell on 10-24-2024 Automated lymphocyte count as percentage of total leukocytes 30.7 % 19-41 [facility] MCV (RBC) [Entitic vol]Order ed By: Salvador Campbell on 10-24-2024 MCV (mean corpuscular volume) determination 88.9 fL 81-99 [facility] Mean corpuscular hemoglobin (MCH) determinationOrdered By: Salvador Campbell on 10-24-2024 Mean corpuscular hemoglobin (MCH) determination 27.5 pg 27.0-32.0 [facility] Mean corpuscular hemoglobin concentration (MCHC) determinationOrdered By: Salvador Campbell on 10-24-2024 Mean corpuscular hemoglobin concentration (MCHC) determination 31.0 g/dL Low 32-36 [facility] Mean platelet volume determi nationOrdered By: Salvador Campbell on 10-24-2024 Mean platelet volume determination 9.7 fl 6.2-12.0 [facility] Monocyte percentageOrdered B y: Salvador Campbell on 10-24-2024 Monocyte percentage 5.7 % 0-10 [facility] Neutrophil percentageOrdered By: Salvador Campbell on 10-24-2024 Neutrophil percentage 59.8 % 47-70 [facility] No Panel InformationOrdered By: Salvador Capmbell on 10-24-2024 32 U/L 15-37 [facility] Nucleated red blood cell per centageOrdered By: Salvador Campbell on 10-24-2024 Nucleated red blood cell percentage 0 % 0-5 [facility] Platelet countOrdered By: Malachi Campbell on 10-24-2024 Platelet count 352 K/mm3 150-450 [facility] Potassium measurementOrdered By: Salvador Campbell on 10-24-2024 Potassium measurement 4.1 mmol/L 3.5-5.1 [facility] Protein Test strip Ql (U)Ord ered By: Salvador Campbell on 10-24-2024 Urine protein assay by test strip, semi-quantitative 15 mg/dl High Negative [facility] RBC Auto (Bld) [#/Vol]Ordere d By: Salvador Campbell on 10-24-2024 Automated blood erythrocyte count 3.78 M/mm3 Low 4.2-5.4 [facility] Serum anion gap measurementO rdered By: Salvador Campbell on 10-24-2024 Serum anion gap measurement 8 5-15 [facility] Serum globulin measurementOr dered By: Salvador Campbell on 10-24-2024 Serum globulin measurement 3.8 g/dL 2.2-4.2 [facility] Sodium levelOrdered By: Charles Campbell on 10-24-2024 Sodium level 135 mmol/L Low 136-145 [facility] Specific gravity (U) [Rel de nsity]Ordered By: Salvador Campbell on 10-24-2024 Urine specific gravity measurement 1.015 1.002-1.03 0 [facility] Total proteinOrdered By: Roldan Campbell on 10-24-2024 Total protein 6.8 g/dL 6.4-8.2 [facility] Urea nitrogen [Mass/Vol]Orde red By: Salvador Campbell on 10-24-2024 Serum or plasma urea nitrogen measurement (mass/volume) 27 mg/dL High 7-18 [facility] Urine total bilirubin detect ion by test stripOrdered By: Salvador Campbell on 10-24-2024 Urine total bilirubin detection by test strip Negative Negative [facility] Urobilinogen Ql (U)Ordered B y: Salvador Campbell on 10-24-2024 Urine urobilinogen measurement Normal mg/dl Normal [facility] White blood cell (WBC) count Ordered By: Salvador Campbell on 10-24-2024 White blood cell (WBC) count 6.7 K/mm3 4.4-11.0 [facility] White blood cell countOrdere d By: Salvador Campbell on 10-24-2024 White blood cell count 0 SEEN /hpf [facility] pH (U)Ordered By: Padmini on 10-24-2024 Urine pH 6.0 5.0 - 8.0 [facility] Absolute neutrophil countOrd ered By: Lizet Linares on 10-20-2024 Absolute neutrophil count 3.2 X10^3/uL 2.0-7.7 [facility] Basophil percentageOrdered B y: Lizet Linares on 10-20-2024 Basophil percentage 0.7 % 0-1 [facility] Blood urea nitrogen (BUN)/cr eatinine ratioOrdered By: Lizet Linares on 10-20-2024 Blood urea nitrogen (BUN)/creatinine ratio 22.0 RATIO High 10-20 [facility] Calcium [Mass/Vol]Ordered By : Lizet Linares on 10-20-2024 Serum or plasma calcium measurement (mass/volume) 8.4 mg/dL Low 8.5-10.[address] [facility] Carbon dioxide measurementOr dered By: Lizet Linares on 10-20-2024 Carbon dioxide measurement 27.0 mmol/L 21.0-32.0 [facility] Chloride measurementOrdered By: Lizet Linares on 10-20-2024 Chloride measurement 102 mmol/L 98-107 [facility] Creatinine [Mass/Vol]Ordered By: Lizet Linares on 10-20-2024 Serum or plasma creatinine measurement (mass/volume) 1.27 mg/dL High 0.55-1.02 [facility] Eosinophil percentageOrdered By: Lizet Linares on 10-20-2024 Eosinophil percentage 3.1 % 0-5 [facility] Erythrocyte distribution wid th (RBC) [Ratio]Ordered By: Lizet Linares on 10-20-2024 Erythrocyte distribution width ratio 13.6 % 11.6-14.6 [facility] Erythrocyte distribution wid th standard deviationOrdered By: Lizet Linares on 10-20-2024 Erythrocyte distribution width standard deviation 44.0 fl High 35.1-43.9 [facility] Estimated glomerular filtrat ion rate (GFR) AmericanOrdered By: Lizet Linares on 10-20-2024 Estimated glomerular filtration rate (GFR) 55 mL/min Low >60 [facility] Glomerular filtration rate ( GFR) estimationOrdered By: Lizet Linares on 10-20-2024 Glomerular filtration rate (GFR) estimation 45 mL/min Low >60 [facility] Glucose measurementOrdered B y: Lizet Linares on 10-20-2024 Glucose measurement 277 mg/dL High 74-106 [facility] Hematocrit Auto (Bld) [Volum e fraction]Ordered By: Lizet Linares on 10-20-2024 Automated blood hematocrit (percentage) 30.6 % Low 37-47 [facility] Hemoglobin measurementOrdere d By: Lizet Linares on 10-20-2024 Hemoglobin measurement 9.6 g/dL Low 12.0-15.0 [facility] Immature granulocytes/100 WB C Auto (Bld)Ordered By: Lizet Linares on 10-20-2024 Automated immature granulocyte percentage 0.300 % 0.0-0.9 [facility] Lymphocytes Auto (Unsp spec) [#/Vol]Ordered By: Lizet Linares on 10-20-2024 Absolute lymphocyte count 2.38 X10^3/uL 0.83-4. 51 [facility] Lymphocytes/100 WBC Auto (Un sp spec)Ordered By: Lizet Linares on 10-20-2024 Automated lymphocyte count as percentage of total leukocytes 38.9 % 19-41 [facility] MCV (RBC) [Entitic vol]Order ed By: Lizet Linares on 10-20-2024 MCV (mean corpuscular volume) determination 88.7 fL 81-99 [facility] Mean corpuscular hemoglobin (MCH) determinationOrdered By: Lizet Linares on 10-20-2024 Mean corpuscular hemoglobin (MCH) determination 27.8 pg 27.0-32.0 [facility] Mean corpuscular hemoglobin concentration (MCHC) determinationOrdered By: Lizet Linares on 10-20-2024 Mean corpuscular hemoglobin concentration (MCHC) determination 31.4 g/dL Low 32-36 [facility] Mean platelet volume determi nationOrdered By: Lizet Linares on 10-20-2024 Mean platelet volume determination 9.8 fl 6.2-12.0 [facility] Monocyte percentageOrdered B y: Lizet Linares on 10-20-2024 Monocyte percentage 5.2 % 0-10 [facility] Neutrophil percentageOrdered By: Lizet Linares on 10-20-2024 Neutrophil percentage 51.8 % 47-70 [facility] Nucleated red blood cell per centageOrdered By: Lizet Linares on 10-20-2024 Nucleated red blood cell percentage 0 % 0-5 [facility] Platelet countOrdered By: Junie christastacey Linares on 10-20-2024 Platelet count 325 K/mm3 150-450 [facility] Potassium measurementOrdered By: Lizet Linares on 10-20-2024 Potassium measurement 3.9 mmol/L 3.5-5.1 [facility] RBC Auto (Bld) [#/Vol]Ordere d By: Lizet Linares on 10-20-2024 Automated blood erythrocyte count 3.45 M/mm3 Low 4.2-5.4 [facility] Serum anion gap measurementO rdered By: Lizet Linares on 10-20-2024 Serum anion gap measurement 6 5-15 [facility] Sodium levelOrdered By: Holly lrtia Milagros on 10-20-2024 Sodium level 135 mmol/L Low 136-145 [facility] Urea nitrogen [Mass/Vol]Orde red By: Lizet Linares on 10-20-2024 Serum or plasma urea nitrogen measurement (mass/volume) 28 mg/dL High 7-18 [facility] White blood cell (WBC) count Ordered By: Lizet Linares on 10-20-2024 White blood cell (WBC) count 6.1 K/mm3 4.4-11.0 [facility] Absolute neutrophil countOrd ered By: Lizet Linares on 10-13-2024 Absolute neutrophil count 3.3 X10^3/uL 2.0-7.7 [facility] Basophil percentageOrdered B y: Lizet Linares on 10-13-2024 Basophil percentage 0.8 % 0-1 [facility] Blood urea nitrogen (BUN)/cr eatinine ratioOrdered By: Lizet Linares on 10-13-2024 Blood urea nitrogen (BUN)/creatinine ratio 13.7 RATIO 10-20 [facility] Calcium [Mass/Vol]Ordered By : Lizet Linares on 10-13-2024 Serum or plasma calcium measurement (mass/volume) 9.0 mg/dL 8.5-10.[address] [facility] Carbon dioxide measurementOr dered By: Lizet Linares on 10-13-2024 Carbon dioxide measurement 28.0 mmol/L 21.0-32.0 [facility] Chloride measurementOrdered By: Lizet Linares on 10-13-2024 Chloride measurement 103 mmol/L 98-107 [facility] Creatinine [Mass/Vol]Ordered By: Lizet Linares on 10-13-2024 Serum or plasma creatinine measurement (mass/volume) 1.31 mg/dL High 0.55-1.02 [facility] Eosinophil percentageOrdered By: Lizet Linares on 10-13-2024 Eosinophil percentage 2.5 % 0-5 [facility] Erythrocyte distribution wid th (RBC) [Ratio]Ordered By: Lizet Linares on 10-13-2024 Erythrocyte distribution width ratio 13.8 % 11.6-14.6 [facility] Erythrocyte distribution wid th standard deviationOrdered By: Lizet Linares 10-13-2024 Erythrocyte distribution width standard deviation 44.6 fl High 35.1-43.9 [facility] Estimated glomerular filtrat ion rate (GFR) AmericanOrdered By: Lizet Linares on 10-13-2024 Estimated glomerular filtration rate (GFR) 53 mL/min Low >60 [facility] Glomerular filtration rate ( GFR) estimationOrdered By: Lizet Linares on 10-13-2024 Glomerular filtration rate (GFR) estimation 44 mL/min Low >60 [facility] Glucose measurementOrdered B y: Lizet Linares on 10-13-2024 Glucose measurement 234 mg/dL High 74-106 [facility] Hematocrit Auto (Bld) [Volum e fraction]Ordered By: Lizet Linares on 10-13-2024 Automated blood hematocrit (percentage) 34.2 % Low 37-47 [facility] Hemoglobin measurementOrdere d By: Lizet Linares on 10-13-2024 Hemoglobin measurement 10.9 g/dL Low 12.0-15.0 [facility] Immature granulocytes/100 WB C Auto (Bld)Ordered By: Lizet Linares on 10-13-2024 Automated immature granulocyte percentage 0.500 % 0.0-0.9 [facility] Lymphocytes Auto (Unsp spec) [#/Vol]Ordered By: Lizet Linares on 10-13-2024 Absolute lymphocyte count 2.10 X10^3/uL 0.83-4. 51 [facility] Lymphocytes/100 WBC Auto (Un sp spec)Ordered By: Lizet Linares on 10-13-2024 Automated lymphocyte count as percentage of total leukocytes 35.3 % 19-41 [facility] MCV (RBC) [Entitic vol]Order ed By: Lizet Linares on 10-13-2024 MCV (mean corpuscular volume) determination 88.6 fL 81-99 [facility] Mean corpuscular hemoglobin (MCH) determinationOrdered By: Lizet Linares on 10-13-2024 Mean corpuscular hemoglobin (MCH) determination 28.2 pg 27.0-32.0 [facility] Mean corpuscular hemoglobin concentration (MCHC) determinationOrdered By: Lizet Linares on 10-13-2024 Mean corpuscular hemoglobin concentration (MCHC) determination 31.9 g/dL Low 32-36 [facility] Mean platelet volume determi nationOrdered By: Lizet Linares on 10-13-2024 Mean platelet volume determination 9.7 fl 6.2-12.0 [facility] Monocyte percentageOrdered B y: Lizet Linares on 10-13-2024 Monocyte percentage 6.2 % 0-10 [facility] Neutrophil percentageOrdered By: Lizet Linares on 10-13-2024 Neutrophil percentage 54.7 % 47-70 [facility] Nucleated red blood cell per centageOrdered By: Lizet Linares on 10-13-2024 Nucleated red blood cell percentage 0 % 0-5 [facility] Platelet countOrdered By: Junie Linares on 10-13-2024 Platelet count 361 K/mm3 150-450 [facility] Potassium measurementOrdered By: Lizet Linares on 10-13-2024 Potassium measurement 3.9 mmol/L 3.5-5.1 [facility] RBC Auto (Bld) [#/Vol]Ordere d By: Lizet Linares on 10-13-2024 Automated blood erythrocyte count 3.86 M/mm3 Low 4.2-5.4 [facility] Serum anion gap measurementO rdered By: Lizet Linares on 10-13-2024 Serum anion gap measurement 5 5-15 [facility] Sodium levelOrdered By: Holly Linares on 10-13-2024 Sodium level 136 mmol/L 136-145 [facility] Urea nitrogen [Mass/Vol]Orde red By: Lizet Linares on 10-13-2024 Serum or plasma urea nitrogen measurement (mass/volume) 18 mg/dL 7-18 [facility] White blood cell (WBC) count Ordered By: Lizet Linares on 10-13-2024 White blood cell (WBC) count 6.0 K/mm3 4.4-11.0 [facility] Absolute neutrophil countOrd ered By: Lizet Linares on 10-06-2024 Absolute neutrophil count 2.8 X10^3/uL 2.0-7.7 [facility] Basophil percentageOrdered B y: Lizet Linares on 10-06-2024 Basophil percentage 0.5 % 0-1 [facility] Blood urea nitrogen (BUN)/cr eatinine ratioOrdered By: Lizet Linares on 10-06-2024 Blood urea nitrogen (BUN)/creatinine ratio 15.5 RATIO 08-13 [facility] Calcium [Mass/Vol]Ordered By : Lizet Linares on 10-06-2024 Serum or plasma calcium measurement (mass/volume) 8.6 mg/dL 8.5-10.[address] [facility] Carbon dioxide measurementOr dered By: Lizet Linares on 10-06-2024 Carbon dioxide measurement 26.0 mmol/L 21.0-32.0 [facility] Chloride measurementOrdered By: Lizet Linares on 10-06-2024 Chloride measurement 106 mmol/L 98-107 [facility] Creatinine [Mass/Vol]Ordered By: Lizet Linares on 10-06-2024 Serum or plasma creatinine measurement (mass/volume) 1.16 mg/dL High 0.55-1.02 [facility] Eosinophil percentageOrdered By: Lizet Linares on 10-06-2024 Eosinophil percentage 3.4 % 0-5 [facility] Erythrocyte distribution wid th (RBC) [Ratio]Ordered By: Lizet Linares on 10-06-2024 Erythrocyte distribution width ratio 14.0 % 11.6-14.6 [facility] Erythrocyte distribution wid th standard deviationOrdered By: Lizet Linares 10-06-2024 Erythrocyte distribution width standard deviation 45.4 fl High 35.1-43.9 [facility] Estimated glomerular filtrat ion rate (GFR) AmericanOrdered By: Lizet Linares on 10-06-2024 Estimated glomerular filtration rate (GFR) 61 mL/min >60 [facility] Glomerular filtration rate ( GFR) estimationOrdered By: Lizet Linares on 10-06-2024 Glomerular filtration rate (GFR) estimation 50 mL/min Low >60 [facility] Glucose measurementOrdered B y: Lizet Linares on 10-06-2024 Glucose measurement 204 mg/dL High 74-106 [facility] Hematocrit Auto (Bld) [Volum e fraction]Ordered By: Lizet Linares on 10-06-2024 Automated blood hematocrit (percentage) 30.7 % Low 37-47 [facility] Hemoglobin measurementOrdere d By: Lizet Linares on 10-06-2024 Hemoglobin measurement 9.8 g/dL Low 12.0-15.0 [facility] Immature granulocytes/100 WB C Auto (Bld)Ordered By: Lizet Linares 10-06-2024 Automated immature granulocyte percentage 0.300 % 0.0-0.9 [facility] Lymphocytes Auto (Unsp spec) [#/Vol]Ordered By: Lizet Linares on 10-06-2024 Absolute lymphocyte count 2.46 X10^3/uL 0.83-4. 51 [facility] Lymphocytes/100 WBC Auto (Un sp spec)Ordered By: Lizet Linares on 10-06-2024 Automated lymphocyte count as percentage of total leukocytes 41.8 % High 19-41 [facility] MCV (RBC) [Entitic vol]Order ed By: Lizet Linares on 10-06-2024 MCV (mean corpuscular volume) determination 89.2 fL 81-99 [facility] Mean corpuscular hemoglobin (MCH) determinationOrdered By: Lizet Linares on 10-06-2024 Mean corpuscular hemoglobin (MCH) determination 28.5 pg 27.0-32.0 [facility] Mean corpuscular hemoglobin concentration (MCHC) determinationOrdered By: Lizet Linares on 10-06-2024 Mean corpuscular hemoglobin concentration (MCHC) determination 31.9 g/dL Low 32-36 [facility] Mean platelet volume determi nationOrdered By: Lizet Linares on 10-06-2024 Mean platelet volume determination 9.4 fl 6.2-12.0 [facility] Monocyte percentageOrdered B y: Lizet Linares on 10-06-2024 Monocyte percentage 7.1 % 0-10 [facility] Neutrophil percentageOrdered By: Lizet Linares on 10-06-2024 Neutrophil percentage 46.9 % Low 47-70 [facility] Nucleated red blood cell per centageOrdered By: Lizet Linares on 10-06-2024 Nucleated red blood cell percentage 0 % 0-5 [facility] Platelet countOrdered By: Junie Linares on 10-06-2024 Platelet count 330 K/mm3 150-450 [facility] Potassium measurementOrdered By: Lizet Linares on 10-06-2024 Potassium measurement 3.9 mmol/L 3.5-5.1 [facility] RBC Auto (Bld) [#/Vol]Ordere d By: Lizet Linares on 10-06-2024 Automated blood erythrocyte count 3.44 M/mm3 Low 4.2-5.4 [facility] Serum anion gap measurementO rdered By: Lizet Linares on 10-06-2024 Serum anion gap measurement 6 5-15 [facility] Sodium levelOrdered By: Holly Linares on 10-06-2024 Sodium level 138 mmol/L 136-145 [facility] Urea nitrogen [Mass/Vol]Orde red By: Lizet Linares on 10-06-2024 Serum or plasma urea nitrogen measurement (mass/volume) 18 mg/dL 7-18 [facility] White blood cell (WBC) count Ordered By: Lizet Linares on 10-06-2024 White blood cell (WBC) count 5.9 K/mm3 4.4-11.0 [facility] Absolute neutrophil countOrd ered By: Lizet Linares on 09-29-2024 Absolute neutrophil count 3.1 X10^3/uL 2.0-7.7 [facility] Basophil percentageOrdered B y: Lizet Linares on 09-29-2024 Basophil percentage 0.5 % 0-1 [facility] Blood urea nitrogen (BUN)/cr eatinine ratioOrdered By: Lizet Linares on 09-29-2024 Blood urea nitrogen (BUN)/creatinine ratio 18.3 RATIO 10-20 [facility] Calcium [Mass/Vol]Ordered By : Lizet Linares on 09-29-2024 Serum or plasma calcium measurement (mass/volume) 8.6 mg/dL 8.5-10.[address] [facility] Carbon dioxide measurementOr dered By: Lizet Linares on 09-29-2024 Carbon dioxide measurement 26.0 mmol/L 21.0-32.0 [facility] Chloride measurementOrdered By: Lizet Linares on 09-29-2024 Chloride measurement 105 mmol/L 98-107 [facility] Creatinine [Mass/Vol]Ordered By: Lizet Linares on 09-29-2024 Serum or plasma creatinine measurement (mass/volume) 1.20 mg/dL High 0.55-1.02 [facility] Eosinophil percentageOrdered By: [facility] barrownatasha Linares on 09-29-2024 Eosinophil percentage 1.7 % 0-5 [facility] Erythrocyte distribution wid th (RBC) [Ratio]Ordered By: Lizet Linares on 09-29-2024 Erythrocyte distribution width ratio 14.1 % 11.6-14.6 [facility] Erythrocyte distribution wid th standard deviationOrdered By: marcelle Linares on 09-29-2024 Erythrocyte distribution width standard deviation 45.8 fl High 35.1-43.9 [facility] Estimated glomerular filtrat ion rate (GFR) AmericanOrdered By: Lizet Linares on 09-29-2024 Estimated glomerular filtration rate (GFR) 59 mL/min Low >60 [facility] Glomerular filtration rate ( GFR) estimationOrdered By: Lizet Linares on 09-29-2024 Glomerular filtration rate (GFR) estimation 49 mL/min Low >60 [facility] Glucose measurementOrdered B y: Lizet Linares on 09-29-2024 Glucose measurement 193 mg/dL High 74-106 [facility] Hematocrit Auto (Bld) [Volum e fraction]Ordered By: Lizet Linares on 09-29-2024 Automated blood hematocrit (percentage) 30.8 % Low 37-47 [facility] Hemoglobin measurementOrdere d By: Lizet Linares on 09-29-2024 Hemoglobin measurement 9.8 g/dL Low 12.0-15.0 [facility] Immature granulocytes/100 WB C Auto (Bld)Ordered By: Lizet Linares on 09-29-2024 Automated immature granulocyte percentage 0.500 % 0.0-0.9 [facility] Lymphocytes Auto (Unsp spec) [#/Vol]Ordered By: Lizet Linares on 09-29-2024 Absolute lymphocyte count 2.13 X10^3/uL 0.83-4. 51 [facility] Lymphocytes/100 WBC Auto (Un sp spec)Ordered By: Lizet Linares on 09-29-2024 Automated lymphocyte count as percentage of total leukocytes 37.2 % 19-41 [facility] MCV (RBC) [Entitic vol]Order ed By: Lizet Linares on 09-29-2024 MCV (mean corpuscular volume) determination 89.5 fL 81-99 [facility] Mean corpuscular hemoglobin (MCH) determinationOrdered By: Lizet Linares on 09-29-2024 Mean corpuscular hemoglobin (MCH) determination 28.5 pg 27.0-32.0 [facility] Mean corpuscular hemoglobin concentration (MCHC) determinationOrdered By: Lizet Linares on 09-29-2024 Mean corpuscular hemoglobin concentration (MCHC) determination 31.8 g/dL Low 32-36 [facility] Mean platelet volume determi nationOrdered By: Lizet Linares on 09-29-2024 Mean platelet volume determination 9.6 fl 6.2-12.0 [facility] Monocyte percentageOrdered B y: Lizet Linares on 09-29-2024 Monocyte percentage 6.5 % 0-10 [facility] Neutrophil percentageOrdered By: Lizet Linares on 09-29-2024 Neutrophil percentage 53.6 % 47-70 [facility] Nucleated red blood cell per centageOrdered By: Lizet Linares on 09-29-2024 Nucleated red blood cell percentage 0 % 0-5 [facility] Platelet countOrdered By: Junie Linares on 09-29-2024 Platelet count 318 K/mm3 150-450 [facility] Potassium measurementOrdered By: Lizet Linares on 09-29-2024 Potassium measurement 3.8 mmol/L 3.5-5.1 [facility] RBC Auto (Bld) [#/Vol]Ordere d By: Lizet Linares on 09-29-2024 Automated blood erythrocyte count 3.44 M/mm3 Low 4.2-5.4 [facility] Serum anion gap measurementO rdered By: Lizet Linares on 09-29-2024 Serum anion gap measurement 7 5-15 [facility] Sodium levelOrdered By: Holly Linares on 09-29-2024 Sodium level 138 mmol/L 136-145 [facility] Urea nitrogen [Mass/Vol]Orde red By: Lizet Lniares on 09-29-2024 Serum or plasma urea nitrogen measurement (mass/volume) 22 mg/dL High 7-18 [facility] White blood cell (WBC) count Ordered By: Lizet Linares on 09-29-2024 White blood cell (WBC) count 5.7 K/mm3 4.4-11.0 [facility] Absolute lymphocyte countOrd ered By: Lizet Linares on 02-25-2024 Lymphocytes Auto (Unsp spec) [#/Vol] 2.72 10*3/uL 0.83-4.51 [facility] Automated lymphocyte count a s percentage of total leukocytesOrdered By: Lizet Linares on 02-25-2024 Lymphocytes/100 WBC Auto (Unsp spec) 38.5 % 19-41 [facility] Basophil percentageOrdered B y: Lizet Linares on 02-25-2024 Basophil percentage 10.6 g/dL 12.0-15.0 [facility] Basophil percentage 222 mg/dL 74-106 [facility] Basophil percentage 6.5 g/dL 6.4-8.2 [facility] Basophil percentage 0.30 mg/dL 0.20-1.00 [facility] Basophil percentage 138 mmol/L 136-145 [facility] Basophil percentage 4.0 mmol/L 3.5-5.1 [facility] Basophil percentage 105 mmol/L 98-107 [facility] Basophils (Bld) [#/Vol] 7.1 10*3/uL 4.4-11.0 [facility] Basophils (Bld) [#/Vol] 3.8 10*3/uL 2.0-7.7 [facility] [facility] Bas[facility]/100 WBC (Bld) 53.5 % 47-70 [facility] Basophils/100 WBC (Bld) 5.4 % 0-10 [facility] Basophils/100 WBC (Bld) 1.8 % 0-5 [facility] Basophils/100 WBC (Bld) 0.4 % 0-1 [facility] Determination of erythrocyte mean corpuscular volume (MCV)Ordered By: Lizet Linares on 02-25-2024 MCV (RBC) [Entitic vol] 89.0 fL 81-99 [facility] Direct bilirubinOrdered By: Lizet Linares on 02-25-2024 Bilirubin.direct [Mass/Vol] 0.11 mg/dL 0.00-0.30 [facility] Erythrocyte distribution wid th ratioOrdered By: [facility] barrownatasha Linares on 02-25-2024 Erythrocyte distribution width (RBC) [Ratio] 13.6 % 11.6-14.6 [facility] Erythrocyte distribution wid th standard deviationOrdered By: Hollyerminenatasha Linares on 02-25-2024 Erythrocyte distribution width (RBC) [Entitic vol] 43.9 fL 35.1-43.[address] [facility] Hematocrit Auto (Bld) [Volum e fraction]Ordered By: Hollyerminenatasha Linares on 02-25-2024 Hematocrit (Bld) [Volume fraction] 34.1 % 37-47 [facility] Immature granulocytes/100 WB C Auto (Bld)Ordered By: Hollyerminenatasha Linares on 02-25-2024 Immature granulocytes/100 WBC (Bld) 0.400 % 0.0-0.9 [facility] No Panel InformationOrdered By: christaerminenatasha Linares on 02-25-2024 27.7 pg 27.0-32.0 [facility] 31.1 g/dL 32-36 [facility] 335 K/mm3 150-450 [facility] 9.2 fl 6.2-12.0 [facility] 0 % 0-5 [facility] 50 mL/min >60 [facility] 61 mL/min >60 [facility] 12.8 RATIO 10-20 [facility] 3.8 g/dL 2.2-4.2 [facility] 45 U/L 45-117 [facility] 20 U/L 13-56 [facility] 25.0 mmol/L 21.0-32.0 [facility] RBC Auto (Bld) [#/Vol]Ordere d By: Lizet Linares on 02-25-2024 RBC (Bld) [#/Vol] 3.83 10*6/uL 4.2-5.4 [facility] Serum or plasma calcium tai urement (mass/volume)Ordered By: Lizet Linares on 02-25-2024 Calcium [Mass/Vol] 8.9 mg/dL 8.5-10.[address] [facility] Serum or plasma creatinine m easurement (mass/volume)Ordered By: Lizet Linares on 02-25-2024 Creatinine [Mass/Vol] 1.17 mg/dL 0.55-1.02 [facility] Serum or plasma thyroid stim ulating hormone (TSH) measurement (units/volume)Ordered By: marcelle Linares on 02-25-2024 TSH Qn 0.07 uIU/mL 0.358-3.74 [facility] Serum or plasma urea nitroge n measurement (mass/volume)Ordered By: Hollyerminenatasha Linares on 02-25-2024 Urea nitrogen [Mass/Vol] 15 mg/dL 7-18 [facility] Thin prep Papanicolaou smear with manual screeningOrdered By: christaerminenatasha Linares on 02-25-2024 Thin prep Papanicolaou smear with manual screening 2.7 g/dL 3.2-5.0 [facility] Thin prep Papanicolaou smear with manual screening 15 U/L 15-37 [facility] Thin prep Papanicolaou smear with manual screening 8 5-15 [facility] Whole blood hemoglobin A1c/t otal hemoglobin ratio (mass fraction)Ordered By: Lizet Linares on 02-25-2024 HbA1c (Bld) [Mass fraction] 6.8 % 3.8-5.6 [facility] Absolute lymphocyte countOrd ered By: Lizet Linares on 02-18-2024 Lymphocytes Auto (Unsp spec) [#/Vol] 2.70 10*3/uL 0.83-4.51 [facility] Automated lymphocyte count a s percentage of total leukocytesOrdered By: Lizet Linares on 02-18-2024 Lymphocytes/100 WBC Auto (Unsp spec) 42.6 % 19-41 [facility] Basophil percentageOrdered B y: Lizet Linares on 02-18-2024 Basophil percentage 11.0 g/dL 12.0-15.0 [facility] Basophil percentage 180 mg/dL 74-106 [facility] Basophil percentage 139 mmol/L 136-145 [facility] Basophil percentage 4.2 mmol/L 3.5-5.1 [facility] Basophil percentage 107 mmol/L 98-107 [facility] Basophils (Bld) [#/Vol] 6.3 10*3/uL 4.4-11.0 [facility] Basophils (Bld) [#/Vol] 3.1 10*3/uL 2.0-7.7 [facility] Basophils/100 WBC (Bld) 48.9 % 47-70 [facility] Basophils/100 WBC (Bld) 6.0 % 0-10 [facility] Basophils/100 WBC (Bld) 1.3 % 0-5 [facility] Basophils/100 WBC (Bld) 0.6 % 0-1 [facility] Determination of erythrocyte mean corpuscular volume (MCV)Ordered By: Lizet Linares on 02-18-2024 MCV (RBC) [Entitic vol] 89.1 fL 81-99 [facility] Erythrocyte distribution wid th ratioOrdered By: [facility] Taytal on 02-18-2024 Erythrocyte distribution width (RBC) [Ratio] 13.2 % 11.6-14.6 [facility] Erythrocyte distribution wid th standard deviationOrdered By: Hollyerminenatasha Crosstal on 02-18-2024 Erythrocyte distribution width (RBC) [Entitic vol] 43.1 fL 35.1-43.[address] [facility] Hematocrit Auto (Bld) [Volum e fraction]Ordered By: Lizet Linares on 02-18-2024 Hematocrit (Bld) [Volume fraction] 34.2 % 37-47 [facility] Immature granulocytes/100 WB C Auto (Bld)Ordered By: Lizet Linares on 02-18-2024 Immature granulocytes/100 WBC (Bld) 0.600 % 0.0-0.9 [facility] No Panel InformationOrdered By: Lizet Linares on 02-18-2024 28.6 pg 27.0-32.0 [facility] 32.2 g/dL 32-36 [facility] 337 K/mm3 150-450 [facility] 9.3 fl 6.2-12.0 [facility] 0 % 0-5 [facility] 45 mL/min >60 [facility] 55 mL/min >60 [facility] 14.8 RATIO 10-20 [facility] 26.0 mmol/L 21.0-32.0 [facility] RBC Auto (Bld) [#/Vol]Ordere d By: Lizet Linares on 02-18-2024 RBC (Bld) [#/Vol] 3.84 10*6/uL 4.2-5.4 [facility] Serum or plasma calcium tai urement (mass/volume)Ordered By: Lizet Linares on 02-18-2024 Calcium [Mass/Vol] 8.8 mg/dL 8.5-10.[address] [facility] Serum or plasma creatinine m easurement (mass/volume)Ordered By: Lizet Linares on 02-18-2024 Creatinine [Mass/Vol] 1.28 mg/dL 0.55-1.02 [facility] Serum or plasma urea nitroge n measurement (mass/volume)Ordered By: Lizet Linares on 02-18-2024 Urea nitrogen [Mass/Vol] 19 mg/dL 7-18 [facility] Thin prep Papanicolaou smear with manual screeningOrdered By: Lizet Linares on 02-18-2024 Thin prep Papanicolaou smear with manual screening 6 5-15 [facility] Absolute lymphocyte countOrd ered By: Lizet Linares on 02-11-2024 Lymphocytes Auto (Unsp spec) [#/Vol] 2.53 10*3/uL 0.83-4.51 [facility] Automated lymphocyte count a s percentage of total leukocytesOrdered By: Lizet Linares on 02-11-2024 Lymphocytes/100 WBC Auto (Unsp spec) 35.3 % 19-41 [facility] Basophil percentageOrdered B y: Lizet Linares on 02-11-2024 Basophil percentage 11.3 g/dL 12.0-15.0 [facility] Basophil percentage 218 mg/dL 74-106 [facility] Basophil percentage 136 mmol/L 136-145 [facility] Basophil percentage 3.9 mmol/L 3.5-5.1 [facility] Basophil percentage 103 mmol/L 98-107 [facility] Basophils (Bld) [#/Vol] 7.2 10*3/uL 4.4-11.0 [facility] Basophils (Bld) [#/Vol] 3.9 10*3/uL 2.0-7.7 [facility] Basophils/100 WBC (Bld) 54.8 % 47-70 [facility] Basophils/100 WBC (Bld) 7.3 % 0-10 [facility] Basophils/100 WBC (Bld) 1.1 % 0-5 [facility] Basophils/100 WBC (Bld) 0.7 % 0-1 [facility] Determination of erythrocyte mean corpuscular volume (MCV)Ordered By: Lizet Linares on 02-11-2024 MCV (RBC) [Entitic vol] 88.9 fL 81-99 [facility] Erythrocyte distribution wid th ratioOrdered By: [facility] barrownatasha Linares on 02-11-2024 Erythrocyte distribution width (RBC) [Ratio] 13.3 % 11.6-14.6 [facility] Erythrocyte distribution wid th standard deviationOrdered By: Hollyerminenatasha Linares on 02-11-2024 Erythrocyte distribution width (RBC) [Entitic vol] 43.8 fL 35.1-43.[address] [facility] Hematocrit Auto (Bld) [Volum e fraction]Ordered By: Lizet Linares on 02-11-2024 Hematocrit (Bld) [Volume fraction] 35.4 % 37-47 [facility] Immature granulocytes/100 WB C Auto (Bld)Ordered By: Lizet Linares on 02-11-2024 Immature granulocytes/100 WBC (Bld) 0.800 % 0.0-0.9 [facility] No Panel InformationOrdered By: Lizet Linares on 02-11-2024 28.4 pg 27.0-32.0 [facility] 31.9 g/dL 32-36 [facility] 430 K/mm3 150-450 [facility] 9.2 fl 6.2-12.0 [facility] 0 % 0-5 [facility] 59 mL/min >60 [facility] 72 mL/min >60 [facility] 18.8 RATIO 10-20 [facility] 26.0 mmol/L 21.0-32.0 [facility] RBC Auto (Bld) [#/Vol]Ordere d By: Lizet Linares on 02-11-2024 RBC (Bld) [#/Vol] 3.98 10*6/uL 4.2-5.4 [facility] Serum or plasma calcium tai urement (mass/volume)Ordered By: Lizet Linares on 02-11-2024 Calcium [Mass/Vol] 8.5 mg/dL 8.5-10.[address] [facility] Serum or plasma creatinine m easurement (mass/volume)Ordered By: Lizet Linares on 02-11-2024 Creatinine [Mass/Vol] 1.01 mg/dL 0.55-1.02 [facility] Serum or plasma urea nitroge n measurement (mass/volume)Ordered By: Lizet Linares on 02-11-2024 Urea nitrogen [Mass/Vol] 19 mg/dL 7-18 [facility] Thin prep Papanicolaou smear with manual screeningOrdered By: Lizet Linares on 02-11-2024 Thin prep Papanicolaou smear with manual screening 7 5-15 [facility] Bacteria identified Cx Nom ( U)Ordered By: Lizet Linares on 02-09-2024 Culture, urine Proteus mirabilis [facility] Bilirubin Test strip Ql (U)O rdered By: Lizet Linares on 02-09-2024 Bilirubin Ql (U) Negative Negative [facility] Ketones Test strip Ql (U)Ord ered By: Lizet Linares on 02-09-2024 Ketones Ql (U) Negative Negative [facility] Nitrite Test strip Ql (U)Ord ered By: Lizet Linares on 02-09-2024 Nitrite Ql (U) Positive Negative [facility] Protein Test strip Ql (U)Ord ered By: Lizet Linares on 02-09-2024 Protein Ql (U) 15 mg/dl Negative [facility] Urine blood detectionOrdered By: Lizet Linares on 02-09-2024 RBC Ql (U) 10 /ul Negative [facility] Urine clarityOrdered By: Bart Linares on 02-09-2024 Clarity (U) Clear Clear [facility] Urine color determinationOrd ered By: Lizet Linares on 02-09-2024 Color (U) Yellow Yellow [facility] Urine glucose detectionOrder ed By: Lizet Linares on 02-09-2024 Glucose Ql (U) 100 mg/dl Normal [facility] Urine leukocyte esterase det ection by dipstickOrdered By: Lizet Linares on 02-09-2024 Leukocyte esterase Test strip Ql (U) Negative Negative [facility] Urine pHOrdered By: Frank Linares on 02-09-2024 pH (U) 7.0 [pH] 5.0 - 8.0 [facility] Urine specific gravity measu rementOrdered By: Lizet Linares on 02-09-2024 Specific gravity (U) [Rel density] 1.010 1.002-1.03 0 [facility] Urine urobilinogen measureme ntOrdered By: Lizet Linares on 02-09-2024 Urobilinogen Ql (U) Normal mg/dl Normal [facility] Absolute lymphocyte countOrd ered By: Lizet Linares on 02-04-2024 Lymphocytes Auto (Unsp spec) [#/Vol] 3.24 10*3/uL 0.83-4.51 [facility] Automated lymphocyte count a s percentage of total leukocytesOrdered By: Lizet Linares on 02-04-2024 Lymphocytes/100 WBC Auto (Unsp spec) 57.7 % 19-41 [facility] Basophil percentageOrdered B y: Lizet Linares on 02-04-2024 Basophil percentage 11.8 g/dL 12.0-15.0 [facility] Basophil percentage 81 mg/dL 74-106 [facility] Basophil percentage 135 mmol/L 136-145 [facility] Basophil percentage 4.2 mmol/L 3.5-5.1 [facility] Basophil percentage 103 mmol/L 98-107 [facility] Basophils (Bld) [#/Vol] 5.6 10*3/uL 4.4-11.0 [facility] Basophils (Bld) [#/Vol] 2.0 10*3/uL 2.0-7.7 [facility] Basophils/100 WBC (Bld) 35.6 % 47-70 [facility] Basophils/100 WBC (Bld) 5.5 % 0-10 [facility] Basophils/100 WBC (Bld) 0.5 % 0-1 [facility] Blood manual differential co mment interpretation (narrative result)Ordered By: Lizet Linares on 02-04-2024 Manual differential comment Major (Bld) [Interp] SCANNED [facility] Determination of erythrocyte mean corpuscular volume (MCV)Ordered By: Lizet Linares on 02-04-2024 MCV (RBC) [Entitic vol] 89.6 fL 81-99 [facility] Erythrocyte distribution wid th ratioOrdered By: Lizet Linares on 02-04-2024 Erythrocyte distribution width (RBC) [Ratio] 13.7 % 11.6-14.6 [facility] Erythrocyte distribution wid th standard deviationOrdered By: Lizet Linares on 02-04-2024 Erythrocyte distribution width (RBC) [Entitic vol] 45.0 fL 35.1-43.[address] [facility] Hematocrit Auto (Bld) [Volum e fraction]Ordered By: Lizet Linares on 02-04-2024 Hematocrit (Bld) [Volume fraction] 37.2 % 37-47 [facility] Immature granulocytes/100 WB C Auto (Bld)Ordered By: Lizet Linares on 02-04-2024 Immature granulocytes/100 WBC (Bld) 0.200 % 0.0-0.9 [facility] No Panel InformationOrdered By: Lizet Linares on 02-04-2024 28.4 pg 27.0-32.0 [facility] 31.7 g/dL 32-36 [facility] 317 K/mm3 150-450 [facility] 9.3 fl 6.2-12.0 [facility] 0 % 0-5 [facility] 1+ [facility] 53 mL/min >60 [facility] 64 mL/min >60 [facility] 15.3 RATIO 10-20 [facility] 27.0 mmol/L 21.0-32.0 [facility] RBC Auto (Bld) [#/Vol]Ordere d By: Lizet Linares on 02-04-2024 RBC (Bld) [#/Vol] 4.15 10*6/uL 4.2-5.4 [facility] Serum or plasma calcium tai urement (mass/volume)Ordered By: Lizet Linares on 02-04-2024 Calcium [Mass/Vol] 9.0 mg/dL 8.5-10.[address] [facility] Serum or plasma creatinine m easurement (mass/volume)Ordered By: Lizet Linares on 02-04-2024 Creatinine [Mass/Vol] 1.11 mg/dL 0.55-1.02 [facility] Serum or plasma urea nitroge n measurement (mass/volume)Ordered By: Lizet Linares on 02-04-2024 Urea nitrogen [Mass/Vol] 17 mg/dL 7-18 [facility] Thin prep Papanicolaou smear with manual screeningOrdered By: Lizet Linares on 02-04-2024 Thin prep Papanicolaou smear with manual screening 5 5-15 [facility] Absolute lymphocyte countOrd ered By: Lizet Linares on 02-02-2024 Lymphocytes Auto (Unsp spec) [#/Vol] 2.22 10*3/uL 0.83-4.51 [facility] Automated lymphocyte count a s percentage of total leukocytesOrdered By: Lizet Linares on 02-02-2024 Lymphocytes/100 WBC Auto (Unsp spec) 43.9 % 19-41 [facility] Basophil percentageOrdered B y: Lizet Linares on 02-02-2024 Basophil percentage 11.0 g/dL 12.0-15.0 [facility] Basophil percentage 95 mg/dL 74-106 [facility] Basophil percentage 6.3 g/dL 6.4-8.2 [facility] Basophil percentage 0.30 mg/dL 0.20-1.00 [facility] Basophil percentage 138 mmol/L 136-145 [facility] Basophil percentage 3.9 mmol/L 3.5-5.1 [facility] Basophil percentage 107 mmol/L 98-107 [facility] Basophils (Bld) [#/Vol] 5.1 10*3/uL 4.4-11.0 [facility] Basophils (Bld) [#/Vol] 2.4 10*3/uL 2.0-7.7 [facility] Basophils/100 WBC (Bld) 46.6 % 47-70 [facility] Basophils/100 WBC (Bld) 7.3 % 0-10 [facility] Basophils/100 WBC (Bld) 1.2 % 0-5 [facility] Basophils/100 WBC (Bld) 0.6 % 0-1 [facility] Determination of erythrocyte mean corpuscular volume (MCV)Ordered By: Lizet Linares on 02-02-2024 MCV (RBC) [Entitic vol] 90.0 fL 81-99 [facility] Erythrocyte distribution wid th ratioOrdered By: [facility] Taytal on 02-02-2024 Erythrocyte distribution width (RBC) [Ratio] 13.8 % 11.6-14.6 [facility] Erythrocyte distribution wid th standard deviationOrdered By: Hollyerminenatasha Crosstal on 02-02-2024 Erythrocyte distribution width (RBC) [Entitic vol] 45.3 fL 35.1-43.[address] [facility] Hematocrit Auto (Bld) [Volum e fraction]Ordered By: Hollyerminenatasha Linares on 02-02-2024 Hematocrit (Bld) [Volume fraction] 34.3 % 37-47 [facility] Immature granulocytes/100 WB C Auto (Bld)Ordered By: Lizet Linares on 02-02-2024 Immature granulocytes/100 WBC (Bld) 0.400 % 0.0-0.9 [facility] No Panel InformationOrdered By: [facility] Milagros on 02-02-2024 28.9 pg 27.0-32.0 [facility] 32.1 g/dL 32-36 [facility] 279 K/mm3 150-450 [facility] 9.4 fl 6.2-12.0 [facility] 0 % 0-5 [facility] 64 mL/min >60 [facility] 78 mL/min >60 [facility] 17.0 RATIO 10-20 [facility] 3.5 g/dL 2.2-4.2 [facility] 0.8 RATIO 0.9-2.4 [facility] 44 U/L 13-56 [facility] 26.0 mmol/L 21.0-32.0 [facility] RBC Auto (Bld) [#/Vol]Ordere d By: Lizet Linares on 02-02-2024 RBC (Bld) [#/Vol] 3.81 10*6/uL 4.2-5.4 [facility] Serum or plasma calcium tai urement (mass/volume)Ordered By: Lizet Linares on 02-02-2024 Calcium [Mass/Vol] 8.7 mg/dL 8.5-10.[address] [facility] Serum or plasma creatinine m easurement (mass/volume)Ordered By: Lizet Linares on 02-02-2024 Creatinine [Mass/Vol] 0.94 mg/dL 0.55-1.02 [facility] Serum or plasma urea nitroge n measurement (mass/volume)Ordered By: Lizet Linares on 02-02-2024 Urea nitrogen [Mass/Vol] 16 mg/dL 7-18 [facility] Thin prep Papanicolaou smear with manual screeningOrdered By: Lizet Linares on 02-02-2024 Thin prep Papanicolaou smear with manual screening 2.8 g/dL 3.2-5.0 [facility] Thin prep Papanicolaou smear with manual screening 42 U/L 15-37 [facility] Thin prep Papanicolaou smear with manual screening 5 5-15 [facility] Absolute lymphocyte countOrd ered By: Lizet Linares on 01-28-2024 Lymphocytes Auto (Unsp spec) [#/Vol] 2.40 10*3/uL 0.83-4.51 [facility] Automated lymphocyte count a s percentage of total leukocytesOrdered By: Lizet Linares on 01-28-2024 Lymphocytes/100 WBC Auto (Unsp spec) 43.0 % 19-41 [facility] Basophil percentageOrdered B y: Lizet Linares on 01-28-2024 Basophil percentage 11.4 g/dL 12.0-15.0 [facility] Basophil percentage 275 mg/dL 74-106 [facility] Basophil percentage 137 mmol/L 136-145 [facility] Basophil percentage 4.0 mmol/L 3.5-5.1 [facility] Basophil percentage 102 mmol/L 98-107 [facility] Basophils (Bld) [#/Vol] 5.6 10*3/uL 4.4-11.0 [facility] Basophils (Bld) [#/Vol] 2.6 10*3/uL 2.0-7.7 [facility] Basophils/100 WBC (Bld) 47.2 % 47-70 [facility] Basophils/100 WBC (Bld) 6.3 % 0-10 [facility] Basophils/100 WBC (Bld) 2.3 % 0-5 [facility] Basophils/100 WBC (Bld) 0.7 % 0-1 [facility] Determination of erythrocyte mean corpuscular volume (MCV)Ordered By: Lizet Linares on 01-28-2024 MCV (RBC) [Entitic vol] 90.2 fL 81-99 [facility] Erythrocyte distribution wid th ratioOrdered By: Lizet Linares on 01-28-2024 Erythrocyte distribution width (RBC) [Ratio] 13.7 % 11.6-14.6 [facility] Erythrocyte distribution wid th standard deviationOrdered By: Lizet Linares on 01-28-2024 Erythrocyte distribution width (RBC) [Entitic vol] 44.7 fL 35.1-43.[address] [facility] Hematocrit Auto (Bld) [Volum e fraction]Ordered By: Lizet Linares on 01-28-2024 Hematocrit (Bld) [Volume fraction] 34.2 % 37-47 [facility] Immature granulocytes/100 WB C Auto (Bld)Ordered By: Lizet Linares on 01-28-2024 Immature granulocytes/100 WBC (Bld) 0.500 % 0.0-0.9 [facility] No Panel InformationOrdered By: Lizet Linares on 01-28-2024 30.1 pg 27.0-32.0 [facility] 33.3 g/dL 32-36 [facility] 298 K/mm3 150-450 [facility] 9.1 fl 6.2-12.0 [facility] 0 % 0-5 [facility] 53 mL/min >60 [facility] 64 mL/min >60 [facility] 16.1 RATIO 10-20 [facility] 28.0 mmol/L 21.0-32.0 [facility] RBC Auto (Bld) [#/Vol]Ordere d By: Lizet Linares on 01-28-2024 RBC (Bld) [#/Vol] 3.79 10*6/uL 4.2-5.4 [facility] Serum or plasma calcium tai urement (mass/volume)Ordered By: Lizet Linares on 01-28-2024 Calcium [Mass/Vol] 8.8 mg/dL 8.5-10.[address] [facility] Serum or plasma creatinine m easurement (mass/volume)Ordered By: Lizet Linares on 01-28-2024 Creatinine [Mass/Vol] 1.12 mg/dL 0.55-1.02 [facility] Serum or plasma urea nitroge n measurement (mass/volume)Ordered By: Lizet Linares on 01-28-2024 Urea nitrogen [Mass/Vol] 18 mg/dL 7-18 [facility] Thin prep Papanicolaou smear with manual screeningOrdered By: Lizet Linares on 01-28-2024 Thin prep Papanicolaou smear with manual screening 7 5-15 [facility] Absolute lymphocyte countOrd ered By: Lizet Linares on 01-21-2024 Lymphocytes Auto (Unsp spec) [#/Vol] 2.61 10*3/uL 0.83-4.51 [facility] Automated lymphocyte count a s percentage of total leukocytesOrdered By: Lizet Linares on 01-21-2024 Lymphocytes/100 WBC Auto (Unsp spec) 38.7 % 19-41 [facility] Basophil percentageOrdered B y: Lizet Linares on 01-21-2024 Basophil percentage 10.7 g/dL 12.0-15.0 [facility] Basophil percentage 138 mg/dL 74-106 [facility] Basophil percentage 139 mmol/L 136-145 [facility] Basophil percentage 4.5 mmol/L 3.5-5.1 [facility] Basophil percentage 106 mmol/L 98-107 [facility] Basophils (Bld) [#/Vol] 6.8 10*3/uL 4.4-11.0 [facility] Basophils (Bld) [#/Vol] 3.6 10*3/uL 2.0-7.7 [facility] Basophils/100 WBC (Bld) 52.9 % 47-70 [facility] Basophils/100 WBC (Bld) 5.2 % 0-10 [facility] Basophils/100 WBC (Bld) 2.5 % 0-5 [facility] Basophils/100 WBC (Bld) 0.4 % 0-1 [facility] Determination of erythrocyte mean corpuscular volume (MCV)Ordered By: Juniemarcelle Crossjntal on 01-21-2024 MCV (RBC) [Entitic vol] 91.7 fL 81-99 [facility] Erythrocyte distribution wid th ratioOrdered By: Lizet Portertal on 01-21-2024 Erythrocyte distribution width (RBC) [Ratio] 13.9 % 11.6-14.6 [facility] Erythrocyte distribution wid th standard deviationOrdered By: Asmitanatasha Germantal on 01-21-2024 Erythrocyte distribution width (RBC) [Entitic vol] 47.2 fL 35.1-43.[address] [facility] Hematocrit Auto (Bld) [Volum e fraction]Ordered By: Juniechristajanellnatasha Crossjntal on 01-21-2024 Hematocrit (Bld) [Volume fraction] 33.1 % 37-47 [facility] Immature granulocytes/100 WB C Auto (Bld)Ordered By: Juniemarcelle Crossjntal on 03-29-2024 Immature granulocytes/100 WBC (Bld) 0.300 % 0.0-0.9 [facility] No Panel InformationOrdered By: Lizet Linares on 01-21-2024 29.6 pg 27.0-32.0 [facility] 32.3 g/dL 32-36 [facility] 321 K/mm3 150-450 [facility] 9.1 fl 6.2-12.0 [facility] 0 % 0-5 [facility] 50 mL/min >60 [facility] 60 mL/min >60 [facility] 12.7 RATIO 10-20 [facility] 27.0 mmol/L 21.0-32.0 [facility] RBC Auto (Bld) [#/Vol]Ordere d By: Lizet Linares on 01-21-2024 RBC (Bld) [#/Vol] 3.61 10*6/uL 4.2-5.4 [facility] Serum or plasma calcium tai urement (mass/volume)Ordered By: Lizet Linares on 01-21-2024 Calcium [Mass/Vol] 8.9 mg/dL 8.5-10.[address] [facility] Serum or plasma creatinine m easurement (mass/volume)Ordered By: Lizet Linares on 01-21-2024 Creatinine [Mass/Vol] 1.18 mg/dL 0.55-1.02 [facility] Serum or plasma urea nitroge n measurement (mass/volume)Ordered By: Lizet Linares on 01-21-2024 Urea nitrogen [Mass/Vol] 15 mg/dL 7-18 [facility] Thin prep Papanicolaou smear with manual screeningOrdered By: Lizet Linares on 01-21-2024 Thin prep Papanicolaou smear with manual screening 6 5-15 [facility] Absolute lymphocyte countOrd ered By: Ellis Peterson on 01-20-2024 Lymphocytes Auto (Unsp spec) [#/Vol] 2.86 10*3/uL 0.83-4.51 [facility] Automated lymphocyte count a s percentage of total leukocytesOrdered By: Ellis Peterson on 01-20-2024 Lymphocytes/100 WBC Auto (Unsp spec) 34.1 % 19-41 [facility] Basophil percentageOrdered B y: Ellis Peterson on 01-20-2024 Basophil percentage 11.3 g/dL 12.0-15.0 [facility] Basophil percentage 83 mg/dL 74-106 [facility] Basophil percentage 139 mmol/L 136-145 [facility] Basophil percentage 4.3 mmol/L 3.5-5.1 [facility] Basophil percentage 106 mmol/L 98-107 [facility] Basophils (Bld) [#/Vol] 8.4 10*3/uL 4.4-11.0 [facility] Basophils (Bld) [#/Vol] 4.9 10*3/uL 2.0-7.7 [facility] Basophils/100 WBC (Bld) 58.1 % 47-70 [facility] Basophils/100 WBC (Bld) 5.5 % 0-10 [facility] Basophils/100 WBC (Bld) 1.4 % 0-5 [facility] Basophils/100 WBC (Bld) 0.5 % 0-1 [facility] Determination of erythrocyte mean corpuscular volume (MCV)Ordered By: Ellis Peterson on 01-20-2024 MCV (RBC) [Entitic vol] 92.2 fL 81-99 [facility] Erythrocyte distribution wid th ratioOrdered By: Ellis Peterson on 01-20-2024 Erythrocyte distribution width (RBC) [Ratio] 14.0 % 11.6-14.6 [facility] Erythrocyte distribution wid th standard deviationOrdered By: Ellis Peterson on 01-20-2024 Erythrocyte distribution width (RBC) [Entitic vol] 47.4 fL 35.1-43.[address] [facility] Hematocrit Auto (Bld) [Volum e fraction]Ordered By: Ellis Peterson on 01-20-2024 Hematocrit (Bld) [Volume fraction] 35.6 % 37-47 [facility] Immature granulocytes/100 WB C Auto (Bld)Ordered By: Ellis Peterson on 01-20-2024 Immature granulocytes/100 WBC (Bld) 0.400 % 0.0-0.9 [facility] No Panel InformationOrdered By: Ellis Peterson on 03-28-2024 21 pg/mL 3.0-54.0 [facility] 29.3 pg 27.0-32.0 [facility] 31.7 g/dL 32-36 [facility] 379 K/mm3 150-450 [facility] 9.0 fl 6.2-12.0 [facility] 0 % 0-5 [facility] 66 mL/min >60 [facility] 79 mL/min >60 [facility] 62.41 ml/min [facility] 14.0 RATIO 10-20 [facility] 28.0 mmol/L 21.0-32.0 [facility] RBC Auto (Bld) [#/Vol]Ordere d By: Ellis Peterson on 01-20-2024 RBC (Bld) [#/Vol] 3.86 10*6/uL 4.2-5.4 [facility] Serum or plasma calcium tai urement (mass/volume)Ordered By: Ellis Peterson on 01-20-2024 Calcium [Mass/Vol] 9.2 mg/dL 8.5-10.[address] [facility] Serum or plasma creatinine m easurement (mass/volume)Ordered By: Ellis Peterson on 01-20-2024 Creatinine [Mass/Vol] 0.93 mg/dL 0.55-1.02 [facility] Serum or plasma urea nitroge n measurement (mass/volume)Ordered By: Ellis Peterson on 01-20-2024 Urea nitrogen [Mass/Vol] 13 mg/dL 7-18 [facility] Thin prep Papanicolaou smear with manual screeningOrdered By: Ellis Peterson on 01-20-2024 Thin prep Papanicolaou smear with manual screening 5 5-15 [facility] Clostridioides difficile nuc leic acid assay by PCROrdered By: Lizet Linares on 01-19-2024 C. difficile DNA ZHANE+probe Ql (Unsp spec) [facility] Absolute lymphocyte countOrd ered By: Lizet Linares on 01-17-2024 Lymphocytes Auto (Unsp spec) [#/Vol] 2.59 10*3/uL 0.83-4.51 [facility] Automated lymphocyte count a s percentage of total leukocytesOrdered By: Lizet Linares on 01-17-2024 Lymphocytes/100 WBC Auto (Unsp spec) 36.9 % 19-41 [facility] Bacteria identified Cx Nom ( U)Ordered By: Lizet Linares on 01-17-2024 Culture, urine Serratia fonticola [facility] Basophil percentageOrdered B y: Lizet Linares on 01-17-2024 Basophil percentage 10.2 g/dL 12.0-15.0 [facility] Basophil percentage 199 mg/dL 74-106 [facility] Basophil percentage 6.0 g/dL 6.4-8.2 [facility] Basophil percentage 0.20 mg/dL 0.20-1.00 [facility] Basophil percentage 136 mmol/L 136-145 [facility] Basophil percentage 3.8 mmol/L 3.5-5.1 [facility] Basophil percentage 103 mmol/L 98-107 [facility] Basophils (Bld) [#/Vol] 7.0 10*3/uL 4.4-11.0 [facility] Basophils (Bld) [#/Vol] 3.9 10*3/uL 2.0-7.7 [facility] Basophils/100 WBC (Bld) 55.5 % 47-70 [facility] Basophils/100 WBC (Bld) 5.1 % 0-10 [facility] Basophils/100 WBC (Bld) 1.4 % 0-5 [facility] Basophils/100 WBC (Bld) 0.7 % 0-1 [facility] Basophil percentage 0 SEEN /hpf 0-5 [facility] Bilirubin Test strip Ql (U)O rdered By: Lizet Linares on 01-17-2024 Bilirubin Ql (U) Negative Negative [facility] Determination of erythrocyte mean corpuscular volume (MCV)Ordered By: Lizet Linares on 01-17-2024 MCV (RBC) [Entitic vol] 91.3 fL 81-99 [facility] Erythrocyte distribution wid th ratioOrdered By: Lizet Linares on 01-17-2024 Erythrocyte distribution width (RBC) [Ratio] 13.6 % 11.6-14.6 [facility] Erythrocyte distribution wid th standard deviationOrdered By: Lizet Linares on 01-17-2024 Erythrocyte distribution width (RBC) [Entitic vol] 45.4 fL 35.1-43.[address] [facility] Hematocrit Auto (Bld) [Volum e fraction]Ordered By: Lizet Linares on 01-17-2024 Hematocrit (Bld) [Volume fraction] 32.4 % 37-47 [facility] Immature granulocytes/100 WB C Auto (Bld)Ordered By: Lizet Linares on 01-17-2024 Immature granulocytes/100 WBC (Bld) 0.400 % 0.0-0.9 [facility] Ketones Test strip Ql (U)Ord ered By: Lizet Linares on 01-17-2024 Ketones Ql (U) Negative Negative [facility] Mucus LM Ql (Urine sed)Order ed By: Lizet Linares on 01-17-2024 Mucus Ql (Urine sed) 0 SEEN /hpf [facility] Nitrite Test strip Ql (U)Ord ered By: Lizet Linares on 01-17-2024 Nitrite Ql (U) Negative Negative [facility] No Panel InformationOrdered By: Lizet Linares on 01-17-2024 28.7 pg 27.0-32.0 [facility] 31.5 g/dL 32-36 [facility] 339 K/mm3 150-450 [facility] 9.2 fl 6.2-12.0 [facility] 0 % 0-5 [facility] 59 mL/min >60 [facility] 71 mL/min >60 [facility] 15.7 RATIO 10-20 [facility] 3.3 g/dL 2.2-4.2 [facility] 0.8 RATIO 0.9-2.4 [facility] 49 U/L 45-117 [facility] 30 U/L 13-56 [facility] 27.0 mmol/L 21.0-32.0 [facility] 0 SEEN /hpf 0-5 [facility] Protein Test strip Ql (U)Ord ered By: Lizet Linares on 01-17-2024 Protein Ql (U) Negative Negative [facility] RBC Auto (Bld) [#/Vol]Ordere d By: Lizet Linares on 01-17-2024 RBC (Bld) [#/Vol] 3.55 10*6/uL 4.2-5.4 [facility] Serum or plasma calcium tai urement (mass/volume)Ordered By: Lizet Linares on 01-17-2024 Calcium [Mass/Vol] 8.0 mg/dL 8.5-10.[address] [facility] Serum or plasma creatinine m easurement (mass/volume)Ordered By: Lizet Linares on 01-17-2024 Creatinine [Mass/Vol] 1.02 mg/dL 0.55-1.02 [facility] Serum or plasma urea nitroge n measurement (mass/volume)Ordered By: Lizet Linares on 01-17-2024 Urea nitrogen [Mass/Vol] 16 mg/dL 7-18 [facility] Squamous epithelial cells de tection in urine sediment by light microscopyOrdered By: Lizet Linares on 01-17-2024 Epithelial cells.squamous LM Ql (Urine sed) 0 SEEN /hpf 5-10 [facility] Thin prep Papanicolaou smear with manual screeningOrdered By: Lizet Linares on 01-17-2024 Thin prep Papanicolaou smear with manual screening 2.7 g/dL 3.2-5.0 [facility] Thin prep Papanicolaou smear with manual screening 19 U/L 15-37 [facility] Thin prep Papanicolaou smear with manual screening 6 5-15 [facility] Urine blood detectionOrdered By: Lizet Linares on 01-17-2024 RBC Ql (U) Negative Negative [facility] Urine clarityOrdered By: Bart Linares on 01-17-2024 Clarity (U) Clear Clear [facility] Urine color determinationOrd ered By: Lizet Linares on 01-17-2024 Color (U) Yellow Yellow [facility] Urine glucose detectionOrder ed By: Lizet Linares on 01-17-2024 Glucose Ql (U) 100 mg/dl Normal [facility] Urine leukocyte esterase det ection by dipstickOrdered By: Lizet Linares on 01-17-2024 Leukocyte esterase Test strip Ql (U) Negative Negative [facility] Urine pHOrdered By: Frank Linares on 01-17-2024 pH (U) 6.0 [pH] 5.0 - 8.0 [facility] Urine sediment bacteria coun t by microscopy (number/high power field)Ordered By: Lizet Linares on 01-17-2024 Bacteria LM.HPF (Urine sed) [#/Area] 0 /[HPF] None Seen [facility] Urine specific gravity measu rementOrdered By: [facility] Lina[facility] on 01-17-2024 Specific gravity (U) [Rel density] 1.015 1.002-1.03 0 [facility] Urine urobilinogen measureme ntOrdered By: Lizet Linares on 01-17-2024 Urobilinogen Ql (U) Normal mg/dl Normal [facility] Absolute lymphocyte countOrd ered By: Lizet Linares on 01-14-2024 Lymphocytes Auto (Unsp spec) [#/Vol] 2.49 10*3/uL 0.83-4.51 [facility] Automated lymphocyte count a s percentage of total leukocytesOrdered By: Lizet Linares on 01-14-2024 Lymphocytes/100 WBC Auto (Unsp spec) 32.0 % 19-41 [facility] Basophil percentageOrdered B y: Lizet Linares on 01-14-2024 Basophil percentage 10.1 g/dL 12.0-15.0 [facility] Basophil percentage 268 mg/dL 74-106 [facility] Basophil percentage 136 mmol/L 136-145 [facility] Basophil percentage 4.3 mmol/L 3.5-5.1 [facility] Basophil percentage 104 mmol/L 98-107 [facility] Basophils (Bld) [#/Vol] 7.8 10*3/uL 4.4-11.0 [facility] Basophils (Bld) [#/Vol] 4.8 10*3/uL 2.0-7.7 [facility] Basophils/100 WBC (Bld) 61.1 % 47-70 [facility] Basophils/100 WBC (Bld) 5.1 % 0-10 [facility] Basophils/100 WBC (Bld) 1.0 % 0-5 [facility] Basophils/100 WBC (Bld) 0.4 % 0-1 [facility] Determination of erythrocyte mean corpuscular volume (MCV)Ordered By: Lizet Linares on 01-14-2024 MCV (RBC) [Entitic vol] 90.9 fL 81-99 [facility] Erythrocyte distribution wid th ratioOrdered By: Lizet Linares on 01-14-2024 Erythrocyte distribution width (RBC) [Ratio] 13.6 % 11.6-14.6 [facility] Erythrocyte distribution wid th standard deviationOrdered By: Lizet Linares on 01-14-2024 Erythrocyte distribution width (RBC) [Entitic vol] 45.1 fL 35.1-43.[address] [facility] Hematocrit Auto (Bld) [Volum e fraction]Ordered By: Lizet Linares on 01-14-2024 Hematocrit (Bld) [Volume fraction] 31.8 % 37-47 [facility] Immature granulocytes/100 WB C Auto (Bld)Ordered By: Lizet Linares on 01-14-2024 Immature granulocytes/100 WBC (Bld) 0.400 % 0.0-0.9 [facility] No Panel InformationOrdered By: Lizet Linares on 01-14-2024 28.9 pg 27.0-32.0 [facility] 31.8 g/dL 32-36 [facility] 355 K/mm3 150-450 [facility] 9.2 fl 6.2-12.0 [facility] 0 % 0-5 [facility] 55 mL/min >60 [facility] 66 mL/min >60 [facility] 14.8 RATIO 10-20 [facility] 27.0 mmol/L 21.0-32.0 [facility] RBC Auto (Bld) [#/Vol]Ordere d By: Lizet Linares on 01-14-2024 RBC (Bld) [#/Vol] 3.50 10*6/uL 4.2-5.4 [facility] Serum or plasma calcium tai urement (mass/volume)Ordered By: Lizet Linares on 01-14-2024 Calcium [Mass/Vol] 8.5 mg/dL 8.5-10.[address] [facility] Serum or plasma creatinine m easurement (mass/volume)Ordered By: Juniechristajanellnatasha Linares on 01-14-2024 Creatinine [Mass/Vol] 1.08 mg/dL 0.55-1.02 [facility] Serum or plasma urea nitroge n measurement (mass/volume)Ordered By: Lizet Linares on 01-14-2024 Urea nitrogen [Mass/Vol] 16 mg/dL 7-18 [facility] Thin prep Papanicolaou smear with manual screeningOrdered By: christajanellnatasha Linares on 01-14-2024 Thin prep Papanicolaou smear with manual screening 5 5-15 [facility] Absolute lymphocyte countOrd ered By: christaerminenatasha Linares on 01-12-2024 Lymphocytes Auto (Unsp spec) [#/Vol] 2.91 10*3/uL 0.83-4.51 [facility] Automated lymphocyte count a s percentage of total leukocytesOrdered By: Lizet Linares on 01-12-2024 Lymphocytes/100 WBC Auto (Unsp spec) 31.8 % 19-41 [facility] Basophil percentageOrdered B y: Lizet Tayjntal on 01-12-2024 Basophil percentage 11.1 g/dL 12.0-15.0 [facility] Basophil percentage 215 mg/dL 74-106 [facility] Basophil percentage 136 mmol/L 136-145 [facility] Basophil percentage 4.2 mmol/L 3.5-5.1 [facility] Basophil percentage 103 mmol/L 98-107 [facility] Basophils (Bld) [#/Vol] 9.2 10*3/uL 4.4-11.0 [facility] Basophils (Bld) [#/Vol] 5.7 10*3/uL 2.0-7.7 [facility] Basophils/100 WBC (Bld) 61.9 % 47-70 [facility] Basophils/100 WBC (Bld) 4.6 % 0-10 [facility] Basophils/100 WBC (Bld) 0.8 % 0-5 [facility] Basophils/100 WBC (Bld) 0.4 % 0-1 [facility] Determination of erythrocyte mean corpuscular volume (MCV)Ordered By: Lizet Linares on 01-12-2024 MCV (RBC) [Entitic vol] 90.4 fL 81-99 [facility] Erythrocyte distribution wid th ratioOrdered By: Lizet Linares on 01-12-2024 Erythrocyte distribution width (RBC) [Ratio] 13.5 % 11.6-14.6 [facility] Erythrocyte distribution wid th standard deviationOrdered By: Lizet Linares on 01-12-2024 Erythrocyte distribution width (RBC) [Entitic vol] 44.3 fL 35.1-43.[address] [facility] Hematocrit Auto (Bld) [Volum e fraction]Ordered By: Lizet Linares on 01-12-2024 Hematocrit (Bld) [Volume fraction] 34.7 % 37-47 [facility] Immature granulocytes/100 WB C Auto (Bld)Ordered By: Lizet Linares on 01-12-2024 Immature granulocytes/100 WBC (Bld) 0.500 % 0.0-0.9 [facility] No Panel InformationOrdered By: Lizet Linares on 01-12-2024 28.9 pg 27.0-32.0 [facility] 32.0 g/dL 32-36 [facility] 439 K/mm3 150-450 [facility] 9.5 fl 6.2-12.0 [facility] 0 % 0-5 [facility] 59 mL/min >60 [facility] 72 mL/min >60 [facility] 21.8 RATIO 10-20 [facility] 26.0 mmol/L 21.0-32.0 [facility] RBC Auto (Bld) [#/Vol]Ordere d By: Lizet Linares on 01-12-2024 RBC (Bld) [#/Vol] 3.84 10*6/uL 4.2-5.4 [facility] Serum or plasma calcium tai urement (mass/volume)Ordered By: Lizet Linares on 01-12-2024 Calcium [Mass/Vol] 8.7 mg/dL 8.5-10.[address] [facility] Serum or plasma creatinine m easurement (mass/volume)Ordered By: Lizet Linares on 01-12-2024 Creatinine [Mass/Vol] 1.01 mg/dL 0.55-1.02 [facility] Serum or plasma urea nitroge n measurement (mass/volume)Ordered By: Lizet Linares on 01-12-2024 Urea nitrogen [Mass/Vol] 22 mg/dL 7-18 [facility] Thin prep Papanicolaou smear with manual screeningOrdered By: christaerminenatasha Linares on 01-12-2024 Thin prep Papanicolaou smear with manual screening 7 - [facility] Absolute lymphocyte countOrd ered By: Lizet Linares on 01-07-2024 Lymphocytes Auto (Unsp spec) [#/Vol] 2.39 10*3/uL 0.83-4.51 [facility] Automated lymphocyte count a s percentage of total leukocytesOrdered By: Lizet Linares on 01-07-2024 Lymphocytes/100 WBC Auto (Unsp spec) 33.3 % 19-41 [facility] Basophil percentageOrdered B y: Lizet Linares on 01-07-2024 Basophil percentage 10.5 g/dL 12.0-15.0 [facility] Basophil percentage 350 mg/dL 74-106 [facility] Basophil percentage 137 mmol/L 136-145 [facility] Basophil percentage 3.8 mmol/L 3.5-5.1 [facility] Basophil percentage 103 mmol/L 98-107 [facility] Basophils (Bld) [#/Vol] 7.2 10*3/uL 4.4-11.0 [facility] Basophils (Bld) [#/Vol] 4.3 10*3/uL 2.0-7.7 [facility] Basophils/100 WBC (Bld) 59.4 % 47-70 [facility] Basophils/100 WBC (Bld) 5.6 % 0-10 [facility] Basophils/100 WBC (Bld) 0.8 % 0-5 [facility] Basophils/100 WBC (Bld) 0.3 % 0-1 [facility] Determination of erythrocyte mean corpuscular volume (MCV)Ordered By: Lizet Linares on 01-07-2024 MCV (RBC) [Entitic vol] 90.6 fL 81-99 [facility] Erythrocyte distribution wid th ratioOrdered By: Lizet Linares on 01-07-2024 Erythrocyte distribution width (RBC) [Ratio] 13.6 % 11.6-14.6 [facility] Erythrocyte distribution wid th standard deviationOrdered By: Lizet Linares on 01-07-2024 Erythrocyte distribution width (RBC) [Entitic vol] 44.8 fL 35.1-43.[address] [facility] Hematocrit Auto (Bld) [Volum e fraction]Ordered By: Lizet Linares on 01-07-2024 Hematocrit (Bld) [Volume fraction] 31.8 % 37-47 [facility] Immature granulocytes/100 WB C Auto (Bld)Ordered By: Lizet Linares on 01-07-2024 Immature granulocytes/100 WBC (Bld) 0.600 % 0.0-0.9 [facility] No Panel InformationOrdered By: Hollyerminenatasha Linares on 01-07-2024 29.9 pg 27.0-32.0 [facility] 33.0 g/dL 32-36 [facility] 310 K/mm3 150-450 [facility] 9.3 fl 6.2-12.0 [facility] 0 % 0-5 [facility] 59 mL/min >60 [facility] 71 mL/min >60 [facility] 22.5 RATIO 10-20 [facility] 27.0 mmol/L 21.0-32.0 [facility] RBC Auto (Bld) [#/Vol]Ordere d By: Lizet Linares on 01-07-2024 RBC (Bld) [#/Vol] 3.51 10*6/uL 4.2-5.4 [facility] Serum or plasma calcium tai urement (mass/volume)Ordered By: Lizet Linares on 01-07-2024 Calcium [Mass/Vol] 8.3 mg/dL 8.5-10.[address] [facility] Serum or plasma creatinine m easurement (mass/volume)Ordered By: Lizet Linares on 01-07-2024 Creatinine [Mass/Vol] 1.02 mg/dL 0.55-1.02 [facility] Serum or plasma urea nitroge n measurement (mass/volume)Ordered By: Lizet Linares on 01-07-2024 Urea nitrogen [Mass/Vol] 23 mg/dL 7-18 [facility] Thin prep Papanicolaou smear with manual screeningOrdered By: Hollyerminenatasha Linares on 01-07-2024 Thin prep Papanicolaou smear with manual screening 7 5-15 [facility] Basophil percentageOrdered B y: Ana Rivera on 01-05-2024 Basophil percentage 10.6 g/dL 12.0-15.0 [facility] Basophil percentage 237 mg/dL 74-106 [facility] Basophil percentage 136 mmol/L 136-145 [facility] Basophil percentage 3.9 mmol/L 3.5-5.1 [facility] Basophil percentage 101 mmol/L 98-107 [facility] Basophils (Bld) [#/Vol] 10.0 10*3/uL 4.4-11.0 [facility] COVID-19 virus antigen assay Ordered By: Ana Rivera on 01-05-2024 SARS-CoV-2 (COVID-19) Ag IA.rapid Ql (Resp) [facility] Determination of erythrocyte mean corpuscular volume (MCV)Ordered By: Ana Rivera on 01-05-2024 MCV (RBC) [Entitic vol] 91.6 fL 81-99 [facility] Erythrocyte distribution wid th ratioOrdered By: Ana Rivera on 01-05-2024 Erythrocyte distribution width (RBC) [Ratio] 13.4 % 11.6-14.6 [facility] Erythrocyte distribution wid th standard deviationOrdered By: Ana Rivera on 01-05-2024 Erythrocyte distribution width (RBC) [Entitic vol] 45.5 fL 35.1-43.[address] [facility] Hematocrit Auto (Bld) [Volum e fraction]Ordered By: Ana Rivera on 01-05-2024 Hematocrit (Bld) [Volume fraction] 32.7 % 37-47 [facility] No Panel InformationOrdered By: Ana Rivera on 01-05-2024 29.7 pg 27.0-32.0 [facility] 32.4 g/dL 32-36 [facility] 297 K/mm3 150-450 [facility] 9.3 fl 6.2-12.0 [facility] 60 mL/min >60 [facility] 73 mL/min >60 [facility] 54.57 ml/min [facility] 33.0 RATIO 10-20 [facility] 28.0 mmol/L 21.0-32.0 [facility] RBC Auto (Bld) [#/Vol]Ordere d By: Ana Rivera on 01-05-2024 RBC (Bld) [#/Vol] 3.57 10*6/uL 4.2-5.4 [facility] Serum or plasma calcium tai urement (mass/volume)Ordered By: Ana Rivera on 01-05-2024 Calcium [Mass/Vol] 8.6 mg/dL 8.5-10.[address] [facility] Serum or plasma creatinine m easurement (mass/volume)Ordered By: Ana Rivera on 01-05-2024 Creatinine [Mass/Vol] 1.00 mg/dL 0.55-1.02 [facility] Serum or plasma urea nitroge n measurement (mass/volume)Ordered By: Ana Rivera on 01-05-2024 Urea nitrogen [Mass/Vol] 33 mg/dL 7-18 [facility] Thin prep Papanicolaou smear with manual screeningOrdered By: Aan Rivera on 01-05-2024 Thin prep Papanicolaou smear with manual screening 138 mg/dL 74-106 [facility] Thin prep Papanicolaou smear with manual screening 7 5-15 [facility] Absolute lymphocyte countOrd ered By: Ana Rivera on 01-04-2024 Lymphocytes Auto (Unsp spec) [#/Vol] 2.79 10*3/uL 0.83-4.51 [facility] Automated lymphocyte count a s percentage of total leukocytesOrdered By: Ana Rivera on 01-04-2024 Lymphocytes/100 WBC Auto (Unsp spec) 31.0 % 19-41 [facility] Basophil percentageOrdered B y: Ana Rivera on 01-04-2024 Basophils (Bld) [#/Vol] 5.5 10*3/uL 2.0-7.7 [facility] Basophils/100 WBC (Bld) 60.6 % 47-70 [facility] Basophils/100 WBC (Bld) 5.1 % 0-10 [facility] Basophils/100 WBC (Bld) 1.3 % 0-5 [facility] Basophils/100 WBC (Bld) 0.4 % 0-1 [facility] Immature granulocytes/100 WB C Auto (Bld)Ordered By: Ana Rivera on 01-04-2024 Immature granulocytes/100 WBC (Bld) 1.600 % 0.0-0.9 [facility] No Panel InformationOrdered By: Ana Rivera on 01-04-2024 0 % 0-5 [facility] Basophil percentageOrdered B y: Chavez Alcala on 01-03-2024 Chloride [Moles/Vol] 103 mmol/L 98-107 [facility] Glucose [Mass/Vol] 403 mg/dL 74-[address] [facility] Comment on above: Glucose result great er than or equal to 200 mg/dLsuggests DIABETES MELLITUS per A.D.A. criteria. Hemoglobin (Bld) [Mass/Vol] 10.3 g/dL 12.0-15.0 [facility] Potassium [Moles/Vol] 4.5 mmol/L 3.5-5.1 [facility] Sodium [Moles/Vol] 137 mmol/L 136-[address] [facility] WBC (Bld) [#/Vol] 9.3 10*3/uL 4.4-11.[address] [facility] Determination of erythrocyte mean corpuscular volume (MCV)Ordered By: Chavez Alcala on 01-03-2024 MCV (RBC) [Entitic vol] 90.9 fL 81-99 [facility] Erythrocyte distribution wid th ratioOrdered By: Chavez Alcala on 01-03-2024 Erythrocyte distribution width (RBC) [Ratio] 13.6 % 11.6-14.6 [facility] Erythrocyte distribution wid th standard deviationOrdered By: Chavez Alcala on 01-03-2024 Erythrocyte distribution width (RBC) [Entitic vol] 45.0 fL 35.1-43.[address] [facility] Hematocrit Auto (Bld) [Volum e fraction]Ordered By: Chavez Alcala on 01-03-2024 Hematocrit (Bld) [Volume fraction] 32.1 % 37-47 [facility] Laboratory - Chemistry and C hemistry - challengeOrdered By: Chavez Alcala on 01-03-2024 CO2 [Moles/Vol] 26.0 mmol/L 21.0-32.0 [facility] Urea nitrogen/Creatinine [Mass ratio] 32.7 mg/mg 10-20 [facility] - Hematology and Cell countsOrdered By: Chavez Alcala on 01-03-2024 MCH (RBC) [Entitic mass] 29.2 pg 27.0-32.0 [facility] MCHC (RBC) [Mass/Vol] 32.1 g/dL 32-36 [facility] Platelet mean volume (Bld) [Entitic vol] 9.4 fL 6.2-12.0 [facility] Platelets (Bld) [#/Vol] 291 10*3/uL 150-450 [facility] No Panel InformationOrdered By: Chavez Alcala on 01-03-2024 Estimated Creatinine Clearance Calc 48.23 ml/min [facility] Estimated GFR (MDRD) Amer 63 mL/min >60 [facility] Comment on above: GFR Calc Estimated GFR (MDRD) Non-Af Amer 52 mL/min >60 [facility] Comment on above: Non- GFR Calc RBC Auto (Bld) [#/Vol]Ordere d By: Chavez Alcala on 01-03-2024 RBC (Bld) [#/Vol] 3.53 10*6/uL 4.2-5.4 [facility] Serum or plasma calcium tai urement (mass/volume)Ordered By: Chavez Alcala on 01-03-2024 Calcium [Mass/Vol] 8.5 mg/dL 8.5-10.[address] [facility] Serum or plasma creatinine m easurement (mass/volume)Ordered By: Chavez Alcala on 01-03-2024 Creatinine [Mass/Vol] 1.13 mg/dL 0.55-1.02 [facility] Comment on above: The validity of the calculated GFR & GFRAA in patients over 70 years has not been determined. Clinical correlation is essential. Serum or plasma urea nitroge n measurement (mass/volume)Ordered By: Chavez Alcala on 01-03-2024 Urea nitrogen [Mass/Vol] 37 mg/dL 7-18 [facility] Thin prep Papanicolaou smear with manual screeningOrdered By: Ana Rivera on 01-03-2024 Thin prep Papanicolaou smear with manual screening 333 mg/dL 74-106 [facility] Comment on above: MANAGEMENT OF PATIEN T CARE PER NURSING PROTOCOL Thin prep Papanicolaou smear with manual screeningOrdered By: Chavez Alcala on 01-03-2024 Thin prep Papanicolaou smear with manual screening 8 5-15 [facility] Absolute lymphocyte countOrd ered By: Hansa Cast on 01-02-2024 Lymphocytes Auto (Unsp spec) [#/Vol] 2.24 10*3/uL 0.83-4.51 [facility] Automated lymphocyte count a s percentage of total leukocytesOrdered By: Hansa Cast on 01-02-2024 Lymphocytes/100 WBC Auto (Unsp spec) 31.4 % 19-41 [facility] Basophil percentageOrdered B y: Hansa Serene on 01-02-2024 Basophil percentage 6.9 g/dL 6.4-8.2 [facility] Basophil percentage 0.30 mg/dL 0.20-1.00 [facility] Basophils/100 WBC (Bld) 0.4 % 0-1 [facility] Bilirubin [Mass/Vol] 0.30 mg/dL 0.20-1.00 [facility] Comment on above: For patients on eltr ombopag therapy, use of Dimension Bath TBIL is not recommended. Eosinophils/100 WBC (Bld) 1.1 % 0-5 [facility] Monocytes/100 WBC (Bld) 5.2 % 0-10 [facility] Neutrophils (Bld) [#/Vol] 4.3 10*3/uL 2.0-7.7 [facility] Neutrophils/100 WBC (Bld) 60.2 % 47-70 [facility] Protein [Mass/Vol] 6.9 g/dL 6.4-8.[address] [facility] Immature granulocytes/100 WB C Auto (Bld)Ordered By: [facility] Serene on 01-02-2024 Immature granulocytes/100 WBC (Bld) 1.700 % 0.0-0.9 [facility] Comment on above: IG% - Immature Granu locytes (promyelocytes, myelocytes and metamyelocytes) > 1% indicates that a LEFT SHIFT is Present. Laboratory - Chemistry and C hemistry - challengeOrdered By: Hansa Serene on 01-02-2024 Albumin/Globulin [Mass ratio] 0.8 {ratio} 0.9-2.4 [facility] ALP [Catalytic activity/Vol] 56 U/L [facility] ALT [Catalytic activity/Vol] 27 U/L [facility] Globulin (S) [Mass/Vol] 3.9 g/dL 2.2-4.2 [facility] Laboratory - Hematology and Cell countsOrdered By: Hansa Serene on 01-02-2024 Nucleated RBC/100 WBC (Bld) [Ratio] 0 % 0-5 [facility] No Panel InformationOrdered By: [facility] Serene on 01-02-2024 3.9 g/dL 2.2-4.2 [facility] 0.8 RATIO 0.9-2.4 [facility] 56 U/L [facility] 27 U/L [facility] Serum or plasma thyroid stim ulating hormone (TSH) measurement (units/volume)Ordered By: [facility] Serene on 01-02-2024 TSH Qn 0.36 uIU/mL 0.358-3.74 [facility] Thin prep Papanicolaou smear with manual screeningOrdered By: [facility] Serene on 01-02-2024 Thin prep Papanicolaou smear with manual screening 3.0 g/dL 3.2-5.0 [facility] Thin prep Papanicolaou smear with manual screening 34 U/L 15-37 [facility] Thin prep Papanicolaou smear with manual screening 1.82 ng/dL 0.76-1.46 [facility] Absolute lymphocyte countOrd ered By: Raisa Mc on 01-01-2024 Lymphocytes Auto (Unsp spec) [#/Vol] 2.66 10*3/uL 0.83-4.51 [facility] Automated lymphocyte count a s percentage of total leukocytesOrdered By: Raisa Mc on 01-01-2024 Lymphocytes/100 WBC Auto (Unsp spec) 26.5 % 19-41 [facility] Basophil percentageOrdered B y: Raisa Mc on 01-01-2024 Basophils/100 WBC (Bld) 0.4 % 0-1 [facility] Chloride [Moles/Vol] 102 mmol/L 98-107 [facility] Eosinophils/100 WBC (Bld) 0.8 % 0-5 [facility] Glucose [Mass/Vol] 405 mg/dL 74-[address] [facility] Comment on above: Glucose result great er than or equal to 200 mg/dLsuggests DIABETES MELLITUS per A.D.A. criteria. Hemoglobin (Bld) [Mass/Vol] 11.2 g/dL 12.0-15.0 [facility] Monocytes/100 WBC (Bld) 4.7 % 0-10 [facility] Neutrophils (Bld) [#/Vol] 6.7 10*3/uL 2.0-7.7 [facility] Neutrophils/100 WBC (Bld) 66.7 % 47-70 [facility] Potassium [Moles/Vol] 4.7 mmol/L 3.5-5.1 [facility] Sodium [Moles/Vol] 134 mmol/L 136-[address] [facility] WBC (Bld) [#/Vol] 10.0 10*3/uL 4.4-11.0 [facility] Determination of erythrocyte mean corpuscular volume (MCV)Ordered By: Raisa Mc on 01-01-2024 MCV (RBC) [Entitic vol] 89.5 fL 81-99 [facility] Erythrocyte distribution wid th ratioOrdered By: Raisa Mc on 01-01-2024 Erythrocyte distribution width (RBC) [Ratio] 13.3 % 11.6-14.6 [facility] Erythrocyte distribution wid th standard deviationOrdered By: Raisa Mc on 01-01-2024 Erythrocyte distribution width (RBC) [Entitic vol] 43.3 fL 35.1-43.[address] [facility] Hematocrit Auto (Bld) [Volum e fraction]Ordered By: Raisa Mc on 01-01-2024 Hematocrit (Bld) [Volume fraction] 35.0 % 37-47 [facility] Immature granulocytes/100 WB C Auto (Bld)Ordered By: Raisa Mc on 01-01-2024 Immature granulocytes/100 WBC (Bld) 0.900 % 0.0-0.9 [facility] Comment on above: IG% - Immature Granu locytes (promyelocytes, myelocytes and metamyelocytes) > 1% indicates that a LEFT SHIFT is Present. Laboratory - Chemistry and C hemistry - challengeOrdered By: Raisa Mc on 01-01-2024 CO2 [Moles/Vol] 27.0 mmol/L 21.0-32.0 [facility] Urea nitrogen/Creatinine [Mass ratio] 20.3 mg/mg 10-20 [facility] Laboratory - Hematology and Cell countsOrdered By: Raisa Mc on 01-01-2024 MCH (RBC) [Entitic mass] 28.6 pg 27.0-32.0 [facility] MCHC (RBC) [Mass/Vol] 32.0 g/dL 32-36 [facility] Nucleated RBC/100 WBC (Bld) [Ratio] 0 % 0-5 [facility] Platelet mean volume (Bld) [Entitic vol] 9.4 fL 6.2-12.0 [facility] Platelets (Bld) [#/Vol] 309 10*3/uL 150-450 [facility] No Panel InformationOrdered By: Raisa Mc on 01-01-2024 Troponin I High Sensitivity 17 pg/mL 3.0-54.0 [facility] Comment on above: Please Note: New Carolann t Units and Gender Specific Reference Ranges. For more information see Policy Stat Procedure Bath High Sensitivity Troponin (TNIH) and attachments. 17 pg/mL 3.0-54.0 [facility] D-Dimer Quantitative (PE/DVT) 1.83 FEU/ug/m 0.27-0.49 [facility] Comment on above: D-Dimer ELEVATED (>0 .49): Additional studies and clinicalassessments are indicated to conclude diagnosis of:Deep Vein Thrombosis (DVT) or Pulmonary Embolism (PE)CRITICAL VALUE VERIFIED. CALLED TO GARLAND [id number] Maurice Cast.RESULTS READ BACK BY SAME . Estimated Creatinine Clearance Calc 39.76 ml/min [facility] Estimated GFR (MDRD) Amer 50 mL/min >60 [facility] Comment on above: GFR Calc Estimated GFR (MDRD) Non-Af Amer 41 mL/min >60 [facility] Comment on above: Non- GFR Calc 1.83 FEU/ug/m 0.27-0.49 [facility] RBC Auto (Bld) [#/Vol]Ordere d By: Raisa Mc on 01-01-2024 RBC (Bld) [#/Vol] 3.91 10*6/uL 4.2-5.4 [facility] Serum or plasma calcium tai urement (mass/volume)Ordered By: Raisa Mc on 01-01-2024 Calcium [Mass/Vol] 9.1 mg/dL 8.5-10.[address] [facility] Serum or plasma creatinine m easurement (mass/volume)Ordered By: Raisa Mc on 01-01-2024 Creatinine [Mass/Vol] 1.38 mg/dL 0.55-1.02 [facility] Comment on above: The validity of the calculated GFR & GFRAA in patients over 70 years has not been determined. Clinical correlation is essential. Serum or plasma urea nitroge n measurement (mass/volume)Ordered By: Raisa Mc on 01-01-2024 Urea nitrogen [Mass/Vol] 28 mg/dL 7-18 [facility] Thin prep Papanicolaou smear with manual screeningOrdered By: Raisa Mc on 01-01-2024 Thin prep Papanicolaou smear with manual screening 5 5-15 [facility] Absolute lymphocyte countOrd ered By: Lizet Linares on 12-31-2023 Lymphocytes Auto (Unsp spec) [#/Vol] 1.71 10*3/uL 0.83-4.51 [facility] Automated lymphocyte count a s percentage of total leukocytesOrdered By: Lizet Linares on 12-31-2023 Lymphocytes/100 WBC Auto (Unsp spec) 21.9 % 19-41 [facility] Basophil percentageOrdered B y: Lizet Linares on 12-31-2023 Basophil percentage 11.2 g/dL 12.0-15.0 [facility] Basophil percentage 480 mg/dL 74-106 [facility] Basophil percentage 134 mmol/L 136-145 [facility] Basophil percentage 4.9 mmol/L 3.5-5.1 [facility] Basophil percentage 101 mmol/L 98-107 [facility] Basophils (Bld) [#/Vol] 7.8 10*3/uL 4.4-11.0 [facility] Basophils (Bld) [#/Vol] 5.7 10*3/uL 2.0-7.7 [facility] Basophils/100 WBC (Bld) 0.4 % 0-1 [facility] Basophils/100 WBC (Bld) 73.1 % 47-70 [facility] Basophils/100 WBC (Bld) 3.7 % 0-10 [facility] Basophils/100 WBC (Bld) 0.0 % 0-5 [facility] Chloride [Moles/Vol] 101 mmol/L 98-107 [facility] Eosinophils/100 WBC (Bld) 0.0 % 0-5 [facility] Glucose [Mass/Vol] 480 mg/dL 74-[address] [facility] Comment on above: Critical Result(s) C alled at: 08:54:01 12/31/2023 by: Dalila Bautista to Gunnar Apodaca RN ([facility]). Results read back by same.Glucose result greater than or equal to 200 mg/dLsuggests DIABETES MELLITUS per A.D.A. criteria. Hemoglobin (Bld) [Mass/Vol] 11.2 g/dL 12.0-15.0 [facility] Monocytes/100 WBC (Bld) 3.7 % 0-10 [facility] Neutrophils (Bld) [#/Vol] 5.7 10*3/uL 2.0-7.7 [facility] Neutrophils/100 WBC (Bld) 73.1 % 47-70 [facility] Potassium [Moles/Vol] 4.9 mmol/L 3.5-5.1 [facility] Sodium [Moles/Vol] 134 mmol/L 136-[address] [facility] WBC (Bld) [#/Vol] 7.8 10*3/uL 4.4-11.[address] [facility] Determination of erythrocyte mean corpuscular volume (MCV)Ordered By: Lizet Linares on 12-31-2023 MCV (RBC) [Entitic vol] 90.5 fL 81-99 [facility] Erythrocyte distribution wid th ratioOrdered By: [facility] Linares on 12-31-2023 Erythrocyte distribution width (RBC) [Ratio] 13.1 % 11.6-14.6 [facility] Erythrocyte distribution wid th standard deviationOrdered By: Lizet Linares on 12-31-2023 Erythrocyte distribution width (RBC) [Entitic vol] 43.3 fL 35.1-43.[address] [facility] Hematocrit Auto (Bld) [Volum e fraction]Ordered By: Lizet Linares on 12-31-2023 Hematocrit (Bld) [Volume fraction] 34.4 % 37-47 [facility] Immature granulocytes/100 WB C Auto (Bld)Ordered By: Lizet Linares on 12-31-2023 Immature granulocytes/100 WBC (Bld) 0.900 % 0.0-0.9 [facility] Comment on above: IG% - Immature Granu locytes (promyelocytes, myelocytes and metamyelocytes) > 1% indicates that a LEFT SHIFT is Present. Laboratory - Chemistry and C hemistry - challengeOrdered By: Lizet Linares on 12-31-2023 CO2 [Moles/Vol] 24.0 mmol/L 21.0-32.0 [facility] Urea nitrogen/Creatinine [Mass ratio] 19.6 mg/mg 10-20 [facility] Laboratory - Hematology and Cell countsOrdered By: Hollyerminenatasha Linares on 12-31-2023 MCH (RBC) [Entitic mass] 29.5 pg 27.0-32.0 [facility] MCHC (RBC) [Mass/Vol] 32.6 g/dL 32-36 [facility] Nucleated RBC/100 WBC (Bld) [Ratio] 0 % 0-5 [facility] Platelet mean volume (Bld) [Entitic vol] 9.9 fL 6.2-12.0 [facility] Platelets (Bld) [#/Vol] 257 10*3/uL 150-450 [facility] No Panel InformationOrdered By: Lizet Linares on 12-31-2023 Estimated GFR (MDRD) Amer 50 mL/min >60 [facility] Comment on above: GFR Calc Estimated GFR (MDRD) Non-Af Amer 41 mL/min >60 [facility] Comment on above: Non- GFR Calc 29.5 pg 27.0-32.0 [facility] 32.6 g/dL 32-36 [facility] 257 K/mm3 150-450 [facility] 9.9 fl 6.2-12.0 [facility] 0 % 0-5 [facility] 41 mL/min >60 [facility] 50 mL/min >60 [facility] 19.6 RATIO 10-20 [facility] 24.0 mmol/L 21.0-32.0 [facility] RBC Auto (Bld) [#/Vol]Ordere d By: Lizet Linares on 12-31-2023 RBC (Bld) [#/Vol] 3.80 10*6/uL 4.2-5.4 [facility] Serum or plasma calcium tai urement (mass/volume)Ordered By: Lizet Linares on 12-31-2023 Calcium [Mass/Vol] 9.3 mg/dL 8.5-10.[address] [facility] Serum or plasma creatinine m easurement (mass/volume)Ordered By: Lizet Linares on 12-31-2023 Creatinine [Mass/Vol] 1.38 mg/dL 0.55-1.02 [facility] Comment on above: The validity of the calculated GFR & GFRAA in patients over 70 years has not been determined. Clinical correlation is essential. Serum or plasma urea nitroge n measurement (mass/volume)Ordered By: Lizet Linares on 12-31-2023 Urea nitrogen [Mass/Vol] 27 mg/dL 7-18 [facility] Thin prep Papanicolaou smear with manual screeningOrdered By: Lizet Linares on 12-31-2023 Thin prep Papanicolaou smear with manual screening 9 5-15 [facility] Bacteria identified Cx Nom ( U)Ordered By: Lizet Linares on 12-29-2023 Culture, urine Proteus mirabilis [facility] Bilirubin Test strip Ql (U)O rdered By: Lizet Linares on 12-29-2023 Bilirubin Ql (U) Negative Negative [facility] Culture, urineOrdered By: Junie Linares on 12-29-2023 Bacteria identified Cx Nom (U) Proteus mirabilis [facility] Ketones Test strip Ql (U)Ord ered By: Lizet Linares on 12-29-2023 Ketones Ql (U) Negative Negative [facility] Nitrite Test strip Ql (U)Ord ered By: Lizet Linares on 12-29-2023 Nitrite Ql (U) Negative Negative [facility] Protein Test strip Ql (U)Ord ered By: Lizet Linares on 12-29-2023 Protein Ql (U) 30 mg/dl Negative [facility] Urine blood detectionOrdered By: Lizet Linares on 12-29-2023 RBC Ql (U) 250 /ul Negative [facility] Urine clarityOrdered By: Bart Linares on 12-29-2023 Clarity (U) Cloudy Clear [facility] Urine color determinationOrd ered By: Lizet Linares on 12-29-2023 Color (U) Yellow Yellow [facility] Urine glucose detectionOrder ed By: Lizet Linares on 12-29-2023 Glucose Ql (U) 1000 mg/dl Normal [facility] Urine leukocyte esterase det ection by dipstickOrdered By: Lizet Linares on 12-29-2023 Leukocyte esterase Test strip Ql (U) 500 /ul Negative [facility] Urine pHOrdered By: Frank Linares on 12-29-2023 pH (U) 6.5 [pH] 5.0 - 8.0 [facility] Urine specific gravity measu rementOrdered By: Lizet Linares on 12-29-2023 Specific gravity (U) [Rel density] 1.005 1.002-1.03 0 [facility] Urine urobilinogen measureme ntOrdered By: Lizet Linares on 12-29-2023 Urobilinogen Ql (U) Normal mg/dl Normal [facility] Absolute lymphocyte countOrd ered By: Hollyjanellnatasha Crossjntal on 12-24-2023 Lymphocytes Auto (Unsp spec) [#/Vol] 2.44 10*3/uL 0.83-4.51 [facility] Automated lymphocyte count a s percentage of total leukocytesOrdered By: Lizet Linares on 12-24-2023 Lymphocytes/100 WBC Auto (Unsp spec) 48.0 % 19-41 [facility] Basophil percentageOrdered B y: Hollyjanellnatasha Crossjntal on 12-24-2023 Basophil percentage 11.2 g/dL 12.0-15.0 [facility] Basophil percentage 215 mg/dL 74-106 [facility] Basophil percentage 136 mmol/L 136-145 [facility] Basophil percentage 4.1 mmol/L 3.5-5.1 [facility] Basophil percentage 105 mmol/L 98-107 [facility] Basophils (Bld) [#/Vol] 5.1 10*3/uL 4.4-11.0 [facility] Basophils (Bld) [#/Vol] 2.2 10*3/uL 2.0-7.7 [facility] Basophils/100 WBC (Bld) 0.6 % 0-1 [facility] Basophils/100 WBC (Bld) 43.3 % 47-70 [facility] Basophils/100 WBC (Bld) 6.9 % 0-10 [facility] Basophils/100 WBC (Bld) 1.0 % 0-5 [facility] Chloride [Moles/Vol] 105 mmol/L 98-107 [facility] Eosinophils/100 WBC (Bld) 1.0 % 0-5 [facility] Glucose [Mass/Vol] 215 mg/dL 74-[address] [facility] Comment on above: Glucose result great er than or equal to 200 mg/dLsuggests DIABETES MELLITUS per A.D.A. criteria. Hemoglobin (Bld) [Mass/Vol] 11.2 g/dL 12.0-15.0 [facility] Monocytes/100 WBC (Bld) 6.9 % 0-10 [facility] Neutrophils (Bld) [#/Vol] 2.2 10*3/uL 2.0-7.7 [facility] Neutrophils/100 WBC (Bld) 43.3 % 47-70 [facility] Potassium [Moles/Vol] 4.1 mmol/L 3.5-5.1 [facility] Sodium [Moles/Vol] 136 mmol/L 136-[address] [facility] WBC (Bld) [#/Vol] 5.1 10*3/uL 4.4-11.[address] [facility] Determination of erythrocyte mean corpuscular volume (MCV)Ordered By: Lizet Linares on 12-24-2023 MCV (RBC) [Entitic vol] 91.1 fL 81-99 [facility] Erythrocyte distribution wid th ratioOrdered By: Hollyerminenatasha Linares on 12-24-2023 Erythrocyte distribution width (RBC) [Ratio] 13.7 % 11.6-14.6 [facility] Erythrocyte distribution wid th standard deviationOrdered By: Lizet Linares on 12-24-2023 Erythrocyte distribution width (RBC) [Entitic vol] 46.0 fL 35.1-43.[address] [facility] Hematocrit Auto (Bld) [Volum e fraction]Ordered By: Lizet Linares on 12-24-2023 Hematocrit (Bld) [Volume fraction] 33.8 % 37-47 [facility] Immature granulocytes/100 WB C Auto (Bld)Ordered By: Lizet Linares on 12-24-2023 Immature granulocytes/100 WBC (Bld) 0.200 % 0.0-0.9 [facility] Comment on above: IG% - Immature Granu locytes (promyelocytes, myelocytes and metamyelocytes) > 1% indicates that a LEFT SHIFT is Present. Laboratory - Chemistry and C hemistry - challengeOrdered By: Lizet Linaers on 12-24-2023 CO2 [Moles/Vol] 26.0 mmol/L 21.0-32.0 [facility] Urea nitrogen/Creatinine [Mass ratio] 20.2 mg/mg 10-20 [facility] Laboratory - Hematology and Cell countsOrdered By: Lizet Linares on 12-24-2023 MCH (RBC) [Entitic mass] 30.2 pg 27.0-32.0 [facility] MCHC (RBC) [Mass/Vol] 33.1 g/dL 32-36 [facility] Nucleated RBC/100 WBC (Bld) [Ratio] 0 % 0-5 [facility] Platelet mean volume (Bld) [Entitic vol] 9.5 fL 6.2-12.0 [facility] Platelets (Bld) [#/Vol] 229 10*3/uL 150-450 [facility] No Panel InformationOrdered By: Lizet Linares on 12-24-2023 Estimated GFR (MDRD) Amer 66 mL/min >60 [facility] Comment on above: GFR Calc Estimated GFR (MDRD) Non-Af Amer 54 mL/min >60 [facility] Comment on above: Non- GFR Calc 30.2 pg 27.0-32.0 [facility] 33.1 g/dL 32-36 [facility] 229 K/mm3 150-450 [facility] 9.5 fl 6.2-12.0 [facility] 0 % 0-5 [facility] 54 mL/min >60 [facility] 66 mL/min >60 [facility] 20.2 RATIO 10-20 [facility] 26.0 mmol/L 21.0-32.0 [facility] RBC Auto (Bld) [#/Vol]Ordere d By: Lizet Linares on 12-24-2023 RBC (Bld) [#/Vol] 3.71 10*6/uL 4.2-5.4 [facility] Serum or plasma calcium tai urement (mass/volume)Ordered By: Lizet Linares on 12-24-2023 Calcium [Mass/Vol] 8.7 mg/dL 8.5-10.[address] [facility] Serum or plasma creatinine m easurement (mass/volume)Ordered By: Lizet Linares on 12-24-2023 Creatinine [Mass/Vol] 1.09 mg/dL 0.55-1.02 [facility] Comment on above: The validity of the calculated GFR & GFRAA in patients over 70 years has not been determined. Clinical correlation is essential. Serum or plasma urea nitroge n measurement (mass/volume)Ordered By: Asmitanatasha Crossjntal on 12-24-2023 Urea nitrogen [Mass/Vol] 22 mg/dL 7-18 [facility] Thin prep Papanicolaou smear with manual screeningOrdered By: Juniechristajanellnatasha Linares on 12-24-2023 Thin prep Papanicolaou smear with manual screening 5 5-15 [facility] Absolute lymphocyte countOrd ered By: Hollyjanellnatasha Crossjntal on 12-17-2023 Lymphocytes Auto (Unsp spec) [#/Vol] 2.73 10*3/uL 0.83-4.51 [facility] Automated lymphocyte count a s percentage of total leukocytesOrdered By: Hollyjanellnatasha Linares on 12-17-2023 Lymphocytes/100 WBC Auto (Unsp spec) 35.0 % 19-41 [facility] Basophil percentageOrdered B y: Asmitanatasha Linares on 12-17-2023 Basophil percentage 11.2 g/dL 12.0-15.0 [facility] Basophil percentage 295 mg/dL 74-106 [facility] Basophil percentage 135 mmol/L 136-145 [facility] Basophil percentage 4.1 mmol/L 3.5-5.1 [facility] Basophil percentage 101 mmol/L 98-107 [facility] Basophils (Bld) [#/Vol] 7.8 10*3/uL 4.4-11.0 [facility] Basophils (Bld) [#/Vol] 4.4 10*3/uL 2.0-7.7 [facility] Basophils/100 WBC (Bld) 0.6 % 0-1 [facility] Basophils/100 WBC (Bld) 56.1 % 47-70 [facility] Basophils/100 WBC (Bld) 6.9 % 0-10 [facility] Basophils/100 WBC (Bld) 1.0 % 0-5 [facility] Chloride [Moles/Vol] 101 mmol/L 98-107 [facility] Eosinophils/100 WBC (Bld) 1.0 % 0-5 [facility] Glucose [Mass/Vol] 295 mg/dL 74-[address] [facility] Comment on above: Glucose result great er than or equal to 200 mg/dLsuggests DIABETES MELLITUS per A.D.A. criteria. Hemoglobin (Bld) [Mass/Vol] 11.2 g/dL 12.0-15.0 [facility] Monocytes/100 WBC (Bld) 6.9 % 0-10 [facility] Neutrophils (Bld) [#/Vol] 4.4 10*3/uL 2.0-7.7 [facility] Neutrophils/100 WBC (Bld) 56.1 % 47-70 [facility] Potassium [Moles/Vol] 4.1 mmol/L 3.5-5.1 [facility] Sodium [Moles/Vol] 135 mmol/L 136-[address] [facility] WBC (Bld) [#/Vol] 7.8 10*3/uL 4.4-11.[address] [facility] Determination of erythrocyte mean corpuscular volume (MCV)Ordered By: Lizet Linares on 12-17-2023 MCV (RBC) [Entitic vol] 90.9 fL 81-99 [facility] Erythrocyte distribution wid th ratioOrdered By: christaerminenatasha Crosstal on 12-17-2023 Erythrocyte distribution width (RBC) [Ratio] 14.0 % 11.6-14.6 [facility] Erythrocyte distribution wid th standard deviationOrdered By: Hollyerminenatasha Crosstal on 12-17-2023 Erythrocyte distribution width (RBC) [Entitic vol] 46.7 fL 35.1-43.[address] [facility] Hematocrit Auto (Bld) [Volum e fraction]Ordered By: Lizet Linares on 12-17-2023 Hematocrit (Bld) [Volume fraction] 34.1 % 37-47 [facility] Immature granulocytes/100 WB C Auto (Bld)Ordered By: Lizet Linares on 12-17-2023 Immature granulocytes/100 WBC (Bld) 0.400 % 0.0-0.9 [facility] Comment on above: IG% - Immature Granu locytes (promyelocytes, myelocytes and metamyelocytes) > 1% indicates that a LEFT SHIFT is Present. Laboratory - Chemistry and C hemistry - challengeOrdered By: Lizet Linares on 12-17-2023 CO2 [Moles/Vol] 28.0 mmol/L 21.0-32.0 [facility] Urea nitrogen/Creatinine [Mass ratio] 22.7 mg/mg 10-20 [facility] Laboratory - Hematology and Cell countsOrdered By: Lizet Linares on 12-17-2023 MCH (RBC) [Entitic mass] 29.9 pg 27.0-32.0 [facility] MCHC (RBC) [Mass/Vol] 32.8 g/dL 32-36 [facility] Nucleated RBC/100 WBC (Bld) [Ratio] 0 % 0-5 [facility] Platelet mean volume (Bld) [Entitic vol] 9.5 fL 6.2-12.0 [facility] Platelets (Bld) [#/Vol] 323 10*3/uL 150-450 [facility] No Panel InformationOrdered By: Lizet Linaers on 12-17-2023 Estimated GFR (MDRD) Amer 55 mL/min >60 [facility] Comment on above: GFR Calc Estimated GFR (MDRD) Non-Af Amer 45 mL/min >60 [facility] Comment on above: Non- GFR Calc 29.9 pg 27.0-32.0 [facility] 32.8 g/dL 32-36 [facility] 323 K/mm3 150-450 [facility] 9.5 fl 6.2-12.0 [facility] 0 % 0-5 [facility] 45 mL/min >60 [facility] 55 mL/min >60 [facility] 22.7 RATIO - [facility] 28.0 mmol/L 21.0-32.0 [facility] RBC Auto (Bld) [#/Vol]Ordere d By: Lizet Linares on 12-17-2023 RBC (Bld) [#/Vol] 3.75 10*6/uL 4.2-5.4 [facility] Serum or plasma calcium tai urement (mass/volume)Ordered By: Lizet Linares on 12-17-2023 Calcium [Mass/Vol] 8.9 mg/dL 8.5-10.[address] [facility] Serum or plasma creatinine m easurement (mass/volume)Ordered By: Lizet Tayjntal on 12-17-2023 Creatinine [Mass/Vol] 1.28 mg/dL 0.55-1.02 [facility] Comment on above: The validity of the calculated GFR & GFRAA in patients over 70 years has not been determined. Clinical correlation is essential. Serum or plasma urea nitroge n measurement (mass/volume)Ordered By: Lizet Linares on 12-17-2023 Urea nitrogen [Mass/Vol] 29 mg/dL 7-18 [facility] Thin prep Papanicolaou smear with manual screeningOrdered By: [facility] Linares on 12-17-2023 Thin prep Papanicolaou smear with manual screening 6 5-15 [facility] Absolute lymphocyte countOrd ered By: christaerminenatasha Crossjntal on 12-10-2023 Lymphocytes Auto (Unsp spec) [#/Vol] 2.72 10*3/uL 0.83-4.51 [facility] Automated lymphocyte count a s percentage of total leukocytesOrdered By: Juniemarcelle Linares on 12-10-2023 Lymphocytes/100 WBC Auto (Unsp spec) 45.2 % 19-41 [facility] Basophil percentageOrdered B y: Asmitanatasha Crossjntal on 12-10-2023 Basophil percentage 10.1 g/dL 12.0-15.0 [facility] Basophil percentage 352 mg/dL 74-106 [facility] Basophil percentage 135 mmol/L 136-145 [facility] Basophil percentage 4.3 mmol/L 3.5-5.1 [facility] Basophil percentage 103 mmol/L 98-107 [facility] Basophils (Bld) [#/Vol] 6.0 10*3/uL 4.4-11.0 [facility] Basophils (Bld) [#/Vol] 2.8 10*3/uL 2.0-7.7 [facility] Basophils/100 WBC (Bld) 0.8 % 0-1 [facility] Basophils/100 WBC (Bld) 46.4 % 47-70 [facility] Basophils/100 WBC (Bld) 6.3 % 0-10 [facility] Basophils/100 WBC (Bld) 0.5 % 0-5 [facility] Chloride [Moles/Vol] 103 mmol/L 98-107 [facility] Eosinophils/100 WBC (Bld) 0.5 % 0-5 [facility] Glucose [Mass/Vol] 352 mg/dL 74-[address] [facility] Comment on above: Glucose result great er than or equal to 200 mg/dLsuggests DIABETES MELLITUS per A.D.A. criteria. Hemoglobin (Bld) [Mass/Vol] 10.1 g/dL 12.0-15.0 [facility] Monocytes/100 WBC (Bld) 6.3 % 0-10 [facility] Neutrophils (Bld) [#/Vol] 2.8 10*3/uL 2.0-7.7 [facility] Neutrophils/100 WBC (Bld) 46.4 % 47-70 [facility] Potassium [Moles/Vol] 4.3 mmol/L 3.5-5.1 [facility] Sodium [Moles/Vol] 135 mmol/L 136-[address] [facility] WBC (Bld) [#/Vol] 6.0 10*3/uL 4.4-11.[address] [facility] Determination of erythrocyte mean corpuscular volume (MCV)Ordered By: Lizet Linares on 12-10-2023 MCV (RBC) [Entitic vol] 91.0 fL 81-99 [facility] Erythrocyte distribution wid th ratioOrdered By: Lizet Linares on 12-10-2023 Erythrocyte distribution width (RBC) [Ratio] 13.6 % 11.6-14.6 [facility] Erythrocyte distribution wid th standard deviationOrdered By: Lizet Linares on 12-10-2023 Erythrocyte distribution width (RBC) [Entitic vol] 45.5 fL 35.1-43.[address] [facility] Hematocrit Auto (Bld) [Volum e fraction]Ordered By: Lizet Linares on 12-10-2023 Hematocrit (Bld) [Volume fraction] 31.4 % 37-47 [facility] Immature granulocytes/100 WB C Auto (Bld)Ordered By: Lizet Linares on 12-10-2023 Immature granulocytes/100 WBC (Bld) 0.800 % 0.0-0.9 [facility] Comment on above: IG% - Immature Granu locytes (promyelocytes, myelocytes and metamyelocytes) > 1% indicates that a LEFT SHIFT is Present. Laboratory - Chemistry and C hemistry - challengeOrdered By: Lizet Linares on 12-10-2023 CO2 [Moles/Vol] 26.0 mmol/L 21.0-32.0 [facility] Urea nitrogen/Creatinine [Mass ratio] 24.2 mg/mg 10-20 [facility] Laboratory - Hematology and Cell countsOrdered By: Lizet Linares on 12-10-2023 MCH (RBC) [Entitic mass] 29.3 pg 27.0-32.0 [facility] MCHC (RBC) [Mass/Vol] 32.2 g/dL 32-36 [facility] Nucleated RBC/100 WBC (Bld) [Ratio] 0 % 0-5 [facility] Platelet mean volume (Bld) [Entitic vol] 10.1 fL 6.2-12.0 [facility] Platelets (Bld) [#/Vol] 268 10*3/uL 150-450 [facility] No Panel InformationOrdered By: Lizet Linares on 12-10-2023 Estimated GFR (MDRD) Amer 53 mL/min >60 [facility] Comment on above: GFR Calc Estimated GFR (MDRD) Non-Af Amer 44 mL/min >60 [facility] Comment on above: Non- GFR Calc 29.3 pg 27.0-32.0 [facility] 32.2 g/dL 32-36 [facility] 268 K/mm3 150-450 [facility] 10.1 fl 6.2-12.0 [facility] 0 % 0-5 [facility] 44 mL/min >60 [facility] 53 mL/min >60 [facility] 24.2 RATIO 08-13 [facility] 26.0 mmol/L 21.0-32.0 [facility] RBC Auto (Bld) [#/Vol]Ordere d By: Lizet Linares on 12-10-2023 RBC (Bld) [#/Vol] 3.45 10*6/uL 4.2-5.4 [facility] Serum or plasma calcium tai urement (mass/volume)Ordered By: Lizet Linares on 12-10-2023 Calcium [Mass/Vol] 8.5 mg/dL 8.5-10.[address] [facility] Serum or plasma creatinine m easurement (mass/volume)Ordered By: Lizet Linares on 12-10-2023 Creatinine [Mass/Vol] 1.32 mg/dL 0.55-1.02 [facility] Comment on above: The validity of the calculated GFR & GFRAA in patients over 70 years has not been determined. Clinical correlation is essential. Serum or plasma urea nitroge n measurement (mass/volume)Ordered By: Lizet Linares on 12-10-2023 Urea nitrogen [Mass/Vol] 32 mg/dL 7-18 [facility] Thin prep Papanicolaou smear with manual screeningOrdered By: Lizet Linares on 12-10-2023 Thin prep Papanicolaou smear with manual screening 6 5-15 [facility] Absolute lymphocyte countOrd ered By: Lizet Linares on 11-26-2023 Lymphocytes Auto (Unsp spec) [#/Vol] 2.84 10*3/uL 0.83-4.51 [facility] Automated lymphocyte count a s percentage of total leukocytesOrdered By: Lizet Linares on 11-26-2023 Lymphocytes/100 WBC Auto (Unsp spec) 40.7 % 19-41 [facility] Basophil percentageOrdered B y: Lizet Linares on 11-26-2023 Basophil percentage 10.8 g/dL 12.0-15.0 [facility] Basophil percentage 230 mg/dL 74-106 [facility] Basophil percentage 7.1 g/dL 6.4-8.2 [facility] Basophil percentage 0.60 mg/dL 0.20-1.00 [facility] Basophil percentage 244 mg/dL <200 [facility] Basophil percentage 353 mg/dL <199 [facility] Basophil percentage 135 mmol/L 136-145 [facility] Basophil percentage 4.2 mmol/L 3.5-5.1 [facility] Basophil percentage 102 mmol/L 98-107 [facility] Basophils (Bld) [#/Vol] 7.0 10*3/uL 4.4-11.0 [facility] Basophils (Bld) [#/Vol] 3.5 10*3/uL 2.0-7.7 [facility] Basophils/100 WBC (Bld) 1.0 % 0-1 [facility] Basophils/100 WBC (Bld) 50.3 % 47-70 [facility] Basophils/100 WBC (Bld) 5.3 % 0-10 [facility] Basophils/100 WBC (Bld) 2.0 % 0-5 [facility] Bilirubin [Mass/Vol] 0.60 mg/dL 0.20-1.00 [facility] Comment on above: For patients on eltr ombopag therapy, use of Dimension Bath TBIL is not recommended. Chloride [Moles/Vol] 102 mmol/L 98-107 [facility] Cholesterol [Mass/Vol] 244 mg/dL <200 [facility] Comment on above: <200 mg/dL Desirable 200-240 mg/dL Borderline >240 mg/dL High Risk Eosinophils/100 WBC (Bld) 2.0 % 0-5 [facility] Glucose [Mass/Vol] 230 mg/dL 74-[address] [facility] Comment on above: Glucose result great er than or equal to 200 mg/dLsuggests DIABETES MELLITUS per A.D.A. criteria. Hemoglobin (Bld) [Mass/Vol] 10.8 g/dL 12.0-15.0 [facility] Monocytes/100 WBC (Bld) 5.3 % 0-10 [facility] Neutrophils (Bld) [#/Vol] 3.5 10*3/uL 2.0-7.7 [facility] Neutrophils/100 WBC (Bld) 50.3 % 47-70 [facility] Potassium [Moles/Vol] 4.2 mmol/L 3.5-5.1 [facility] Protein [Mass/Vol] 7.1 g/dL 6.4-8.[address] [facility] Sodium [Moles/Vol] 135 mmol/L 136-[address] [facility] Triglyceride [Mass/Vol] 353 mg/dL <199 [facility] Comment on above: The drugs N-Acetylcy steine and Metamizole may falsely depress this assay.Serum Triglycerides Reference Interval Normal <150 mg/dL Borderline high 150 - 199 mg/dL High 200 - 499 mg/dL Very High > or = 500 mg/dL WBC (Bld) [#/Vol] 7.0 10*3/uL 4.4-11.[address] [facility] Determination of erythrocyte mean corpuscular volume (MCV)Ordered By: Lizet Linares on 11-26-2023 MCV (RBC) [Entitic vol] 94.2 fL 81-99 [facility] Erythrocyte distribution wid th ratioOrdered By: [facility] Taytal on 11-26-2023 Erythrocyte distribution width (RBC) [Ratio] 14.4 % 11.6-14.6 [facility] Erythrocyte distribution wid th standard deviationOrdered By: [facility] on 11-26-2023 Erythrocyte distribution width (RBC) [Entitic vol] 49.4 fL 35.1-43.[address] [facility] Hematocrit Auto (Bld) [Volum e fraction]Ordered By: [facility] Taytal on 11-26-2023 Hematocrit (Bld) [Volume fraction] 33.9 % 37-47 [facility] Immature granulocytes/100 WB C Auto (Bld)Ordered By: [facility] on 11-26-2023 Immature granulocytes/100 WBC (Bld) 0.700 % 0.0-0.9 [facility] Comment on above: IG% - Immature Granu locytes (promyelocytes, myelocytes and metamyelocytes) > 1% indicates that a LEFT SHIFT is Present. Laboratory - Chemistry and C hemistry - challengeOrdered By: [facility] on 11-26-2023 Albumin/Globulin [Mass ratio] 0.9 {ratio} 0.9-2.4 [facility] ALP [Catalytic activity/Vol] 62 U/L 45-117 [facility] ALT [Catalytic activity/Vol] 29 U/L 13-56 [facility] Cholesterol in HDL (Body fld) [Mass/Vol] 23 mg/dL >40 [facility] Comment on above: The drugs N-Acetylcy steine and Metamizole may falsely depress this assay. Reference Range HDL <40 mg/dL Low HDL Cholesterol HDL >or= 60 mg/dL High HDL Cholesterol Cholesterol in LDL (Body fld) [Moles/Vol] 150 mg/dL 0-130 [facility] Cholesterol in VLDL Calc [Moles/Vol] 71 mg/dL 5-40 [facility] CO2 [Moles/Vol] 28.0 mmol/L 21.0-32.0 [facility] Globulin (S) [Mass/Vol] 3.8 g/dL 2.2-4.2 [facility] Urea nitrogen/Creatinine [Mass ratio] 11.7 mg/mg 10-20 [facility] Laboratory - Hematology and Cell countsOrdered By: Lizet Linares on 11-26-2023 MCH (RBC) [Entitic mass] 30.0 pg 27.0-32.0 [facility] MCHC (RBC) [Mass/Vol] 31.9 g/dL 32-36 [facility] Nucleated RBC/100 WBC (Bld) [Ratio] 0 % 0-5 [facility] Platelets (Bld) [#/Vol] 264 10*3/uL 150-450 [facility] No Panel InformationOrdered By: Lizet Linares on 11-26-2023 Estimated GFR (MDRD) Amer 39 mL/min >60 [facility] Comment on above: GFR Calc Estimated GFR (MDRD) Non-Af Amer 32 mL/min >60 [facility] Comment on above: Non- GFR Calc 30.0 pg 27.0-32.0 [facility] 31.9 g/dL 32-36 [facility] 264 K/mm3 150-450 [facility] 0 % 0-5 [facility] 32 mL/min >60 [facility] 39 mL/min >60 [facility] 11.7 RATIO 10-20 [facility] 3.8 g/dL 2.2-4.2 [facility] 0.9 RATIO 0.9-2.4 [facility] 62 U/L 45-117 [facility] 29 U/L 13-56 [facility] 28.0 mmol/L 21.0-32.0 [facility] Platelet mean volume Fercho-Ec ker (Bld) [Entitic vol]Ordered By: Lizet Linares on 11-26-2023 Platelet mean volume (Bld) [Entitic vol] 9.9 fL 6.2-12.0 [facility] RBC Auto (Bld) [#/Vol]Ordere d By: Lizet Linares on 11-26-2023 RBC (Bld) [#/Vol] 3.60 10*6/uL 4.2-5.4 [facility] Serum or plasma calcium tai urement (mass/volume)Ordered By: Lizet Linares on 11-26-2023 Calcium [Mass/Vol] 9.1 mg/dL 8.5-10.[address] [facility] Serum or plasma creatinine m easurement (mass/volume)Ordered By: Lizet Linares on 11-26-2023 Creatinine [Mass/Vol] 1.71 mg/dL 0.55-1.02 [facility] Comment on above: The validity of the calculated GFR & GFRAA in patients over 70 years has not been determined. Clinical correlation is essential. Serum or plasma thyroid stim ulating hormone (TSH) measurement (units/volume)Ordered By: Lizet Linares on 11-26-2023 TSH Qn 99.40 uIU/mL 0.358-3.74 [facility] Serum or plasma urea nitroge n measurement (mass/volume)Ordered By: Lizet Linares on 11-26-2023 Urea nitrogen [Mass/Vol] 20 mg/dL 7-18 [facility] Thin prep Papanicolaou smear with manual screeningOrdered By: Lizet Linares on 11-26-2023 Thin prep Papanicolaou smear with manual screening 3.3 g/dL 3.2-5.0 [facility] Thin prep Papanicolaou smear with manual screening 33 U/L 15-37 [facility] Thin prep Papanicolaou smear with manual screening 5 5-15 [facility] Whole blood hemoglobin A1c/t otal hemoglobin ratio (mass fraction)Ordered By: Lizet Linares on 11-26-2023 HbA1c (Bld) [Mass fraction] 13.1 % 3.8-5.6 [facility] Comment on above: Normal < 5.7 % Predi abetic 5.7 - 6.4 % Diabetic >or= 6.5 % Please note range changes. COVID-19 virus antigen assay Ordered By: Paresh Hernandez on 11-24-2023 SARS-CoV-2 (COVID-19) Ag IA.rapid Ql (Resp) [facility] Thin prep Papanicolaou smear with manual screeningOrdered By: Paresh Hernandez on 11-24-2023 Thin prep Papanicolaou smear with manual screening 128 mg/dL 74-106 [facility] Comment on above: MANAGEMENT OF PATIEN T CARE PER NURSING PROTOCOL Basophil percentageOrdered B y: Paresh Hernandez on 11-23-2023 Basophil percentage 139 mg/dL 74-106 [facility] Basophil percentage 136 mmol/L 136-145 [facility] Basophil percentage 4.4 mmol/L 3.5-5.1 [facility] Basophil percentage 106 mmol/L 98-107 [facility] Chloride [Moles/Vol] 106 mmol/L 98-107 [facility] Glucose [Mass/Vol] 139 mg/dL 74-[address] [facility] Comment on above: Fasting Glucose resu lt greater than or equal to 126 mg/dL suggests DIABETES MELLITUS per A.D.A. criteria. Potassium [Moles/Vol] 4.4 mmol/L 3.5-5.1 [facility] Sodium [Moles/Vol] 136 mmol/L 136-[address] [facility] Laboratory - Chemistry and C hemistry - challengeOrdered By: Paresh Hernandez on 11-23-2023 CO2 [Moles/Vol] 25.0 mmol/L 21.0-32.0 [facility] Urea nitrogen/Creatinine [Mass ratio] 8.1 mg/mg 10- [facility] No Panel InformationOrdered By: Paresh Hernandez on 11-23-2023 Estimated Creatinine Clearance Calc 33.99 ml/min [facility] Estimated GFR (MDRD) Amer 39 mL/min >60 [facility] Comment on above: GFR Calc Estimated GFR (MDRD) Non-Af Amer 32 mL/min >60 [facility] Comment on above: Non- GFR Calc 32 mL/min >60 [facility] 39 mL/min >60 [facility] 33.99 ml/min [facility] 8.1 RATIO 10-20 [facility] 25.0 mmol/L 21.0-32.0 [facility] Serum or plasma calcium tai urement (mass/volume)Ordered By: Paresh Hernandez on 11-23-2023 Calcium [Mass/Vol] 9.4 mg/dL 8.5-10.[address] [facility] Serum or plasma creatinine m easurement (mass/volume)Ordered By: Paresh Hernandez on 11-23-2023 Creatinine [Mass/Vol] 1.72 mg/dL 0.55-1.02 [facility] Comment on above: The validity of the calculated GFR & GFRAA in patients over 70 years has not been determined. Clinical correlation is essential. Serum or plasma urea nitroge n measurement (mass/volume)Ordered By: Paresh Hernandez on 11-23-2023 Urea nitrogen [Mass/Vol] 14 mg/dL 7-18 [facility] Thin prep Papanicolaou smear with manual screeningOrdered By: Paresh Hernandez on 11-23-2023 Thin prep Papanicolaou smear with manual screening 5 5-15 [facility] Absolute lymphocyte countOrd ered By: John Shaw on 11-22-2023 Lymphocytes Auto (Unsp spec) [#/Vol] 2.87 10*3/uL 0.83-4.51 [facility] Automated lymphocyte count a s percentage of total leukocytesOrdered By: John Shaw on 11-22-2023 Lymphocytes/100 WBC Auto (Unsp spec) 41.6 % 19-41 [facility] Basophil percentageOrdered B y: John Shaw on 11-22-2023 Basophil percentage 11.0 g/dL 12.0-15.0 [facility] Basophils (Bld) [#/Vol] 6.9 10*3/uL 4.4-11.0 [facility] Basophils (Bld) [#/Vol] 3.6 10*3/uL 2.0-7.7 [facility] Basophils/100 WBC (Bld) 0.6 % 0-1 [facility] Basophils/100 WBC (Bld) 51.4 % 47-70 [facility] Basophils/100 WBC (Bld) 4.1 % 0-10 [facility] Basophils/100 WBC (Bld) 1.9 % 0-5 [facility] Eosinophils/100 WBC (Bld) 1.9 % 0-5 [facility] Hemoglobin (Bld) [Mass/Vol] 11.0 g/dL 12.0-15.0 [facility] Monocytes/100 WBC (Bld) 4.1 % 0-10 [facility] Neutrophils (Bld) [#/Vol] 3.6 10*3/uL 2.0-7.7 [facility] Neutrophils/100 WBC (Bld) 51.4 % 47-70 [facility] WBC (Bld) [#/Vol] 6.9 10*3/uL 4.4-11.[address] [facility] Determination of erythrocyte mean corpuscular volume (MCV)Ordered By: John Shaw on 11-22-2023 MCV (RBC) [Entitic vol] 91.4 fL 81-99 [facility] Erythrocyte distribution wid th ratioOrdered By: John Shaw on 11-22-2023 Erythrocyte distribution width (RBC) [Ratio] 14.6 % 11.6-14.6 [facility] Erythrocyte distribution wid th standard deviationOrdered By: John Shaw on 11-22-2023 Erythrocyte distribution width (RBC) [Entitic vol] 48.6 fL 35.1-43.[address] [facility] Hematocrit Auto (Bld) [Volum e fraction]Ordered By: John Shaw on 11-22-2023 Hematocrit (Bld) [Volume fraction] 33.8 % 37-47 [facility] Immature granulocytes/100 WB C Auto (Bld)Ordered By: John Shaw on 11-22-2023 Immature granulocytes/100 WBC (Bld) 0.400 % 0.0-0.9 [facility] Comment on above: IG% - Immature Granu locytes (promyelocytes, myelocytes and metamyelocytes) > 1% indicates that a LEFT SHIFT is Present. Laboratory - Hematology and Cell countsOrdered By: John Shaw on 11-22-2023 MCH (RBC) [Entitic mass] 29.7 pg 27.0-32.0 [facility] MCHC (RBC) [Mass/Vol] 32.5 g/dL 32-36 [facility] Nucleated RBC/100 WBC (Bld) [Ratio] 0 % 0-5 [facility] Platelets (Bld) [#/Vol] 260 10*3/uL 150-450 [facility] No Panel InformationOrdered By: John Shaw on 11-22-2023 29.7 pg 27.0-32.0 [facility] 32.5 g/dL 32-36 [facility] 260 K/mm3 150-450 [facility] 0 % 0-5 [facility] Platelet mean volume Fercho-Ec ker (Bld) [Entitic vol]Ordered By: John Shaw on 11-22-2023 Platelet mean volume (Bld) [Entitic vol] 10.2 fL 6.2-12.0 [facility] RBC Auto (Bld) [#/Vol]Ordere d By: John Shaw on 11-22-2023 RBC (Bld) [#/Vol] 3.70 10*6/uL 4.2-5.4 [facility] Bacteria identified Cx Nom ( U)Ordered By: John Shaw on 11-20-2023 Culture, urine Enterococcus faecalis [facility] Basophil percentageOrdered B y: John Shaw on 11-20-2023 Basophil percentage 2.3 mg/dL 2.5-4.9 [facility] Culture, urineOrdered By: Albert Shaw on 11-20-2023 Bacteria identified Cx Nom (U) Enterococcus faecalis [facility] Bacteria identified Cx Nom (U) Enterococcus faecalis [facility] Laboratory - Chemistry and C hemistry - challengeOrdered By: John Shaw on 11-20-2023 Magnesium [Mass/Vol] 2.1 mg/dL 1.6-2.6 [facility] No Panel InformationOrdered By: John Shaw on 11-20-2023 2.1 mg/dL 1.6-2.6 [facility] Absolute lymphocyte countOrd ered By: ED PROVIDER on 11-19-2023 Lymphocytes Auto (Unsp spec) [#/Vol] 4.21 10*3/uL 0.83-4.51 [facility] Automated lymphocyte count a s percentage of total leukocytesOrdered By: ED PROVIDER on 11-19-2023 Lymphocytes/100 WBC Auto (Unsp spec) 35.7 % 19-41 [facility] Basophil percentageOrdered B y: John Shaw on 11-19-2023 Basophil percentage 7.3 g/dL 6.4-8.2 [facility] Basophil percentage 0.50 mg/dL 0.20-1.00 [facility] Bilirubin [Mass/Vol] 0.50 mg/dL 0.20-1.00 [facility] Comment on above: For patients on eltr ombopag therapy, use of Dimension Bath TBIL is not recommended. Protein [Mass/Vol] 7.3 g/dL 6.4-8.[address] [facility] Basophil percentageOrdered B y: Zack Danielsne on 11-19-2023 Basophil percentage 10-25 SEEN /hpf 0-5 [facility] Bilirubin [Mass/Vol] 0.60 mg/dL 0.20-1.00 [facility] Comment on above: For patients on eltr ombopag therapy, use of Dimension Bath TBIL is not recommended. Protein [Mass/Vol] 8.5 g/dL 6.4-8.[address] [facility] Basophil percentageOrdered B y: ED PROVIDER on 11-19-2023 Basophils/100 WBC (Bld) 0.7 % 0-1 [facility] Chloride [Moles/Vol] 92 mmol/L 98-107 [facility] Eosinophils/100 WBC (Bld) 0.4 % 0-5 [facility] Glucose [Mass/Vol] 484 mg/dL 74-[address] [facility] Comment on above: Critical Result(s) C alled at: 09:01:13 11/19/2023 by: Shonda Segal. Results read back by same.Glucose result greater than or equal to 200 mg/dLsuggests DIABETES MELLITUS per A.D.A. criteria. Hemoglobin (Bld) [Mass/Vol] 13.7 g/dL 12.0-15.0 [facility] Monocytes/100 WBC (Bld) 3.3 % 0-10 [facility] Neutrophils (Bld) [#/Vol] 7.0 10*3/uL 2.0-7.7 [facility] Neutrophils/100 WBC (Bld) 59.6 % 47-70 [facility] Potassium [Moles/Vol] 3.4 mmol/L 3.5-5.1 [facility] Comment on above: Slight Hemolysis, Re sult may be falsely increased. Sodium [Moles/Vol] 127 mmol/L 136-[address] [facility] WBC (Bld) [#/Vol] 11.8 10*3/uL 4.4-11.0 [facility] Bilirubin Test strip Ql (U)O rdered By: Zack Choi on 11-19-2023 Bilirubin Ql (U) Negative Negative [facility] Determination of erythrocyte mean corpuscular volume (MCV)Ordered By: ED PROVIDER on 11-19-2023 MCV (RBC) [Entitic vol] 87.8 fL 81-99 [facility] Direct bilirubinOrdered By: Zack Choi on 11-19-2023 Bilirubin.direct [Mass/Vol] 0.16 mg/dL 0.00-0.30 [facility] Erythrocyte distribution wid th ratioOrdered By: ED PROVIDER on 11-19-2023 Erythrocyte distribution width (RBC) [Ratio] 13.5 % 11.6-14.6 [facility] Erythrocyte distribution wid th standard deviationOrdered By: ED PROVIDER on 11-19-2023 Erythrocyte distribution width (RBC) [Entitic vol] 43.6 fL 35.1-43.[address] [facility] Hematocrit Auto (Bld) [Volum e fraction]Ordered By: ED PROVIDER on 11-19-2023 Hematocrit (Bld) [Volume fraction] 40.2 % 37-47 [facility] Immature granulocytes/100 WB C Auto (Bld)Ordered By: ED PROVIDER on 11-19-2023 Immature granulocytes/100 WBC (Bld) 0.300 % 0.0-0.9 [facility] Comment on above: IG% - Immature Granu locytes (promyelocytes, myelocytes and metamyelocytes) > 1% indicates that a LEFT SHIFT is Present. Ketones Test strip Ql (U)Ord ered By: Zack Choi on 11-19-2023 Ketones Ql (U) Negative Negative [facility] Laboratory - Chemistry and C hemistry - challengeOrdered By: John Shaw on 11-19-2023 Albumin/Globulin [Mass ratio] 0.9 {ratio} 0.9-2.4 [facility] ALP [Catalytic activity/Vol] 60 U/L 45-117 [facility] ALT [Catalytic activity/Vol] 27 U/L [facility] Globulin (S) [Mass/Vol] 3.9 g/dL 2.2-4.2 [facility] Laboratory - Chemistry and C hemistry - challengeOrdered By: Zack Choi on 11-19-2023 ALP [Catalytic activity/Vol] 73 U/L 45-117 [facility] ALT [Catalytic activity/Vol] 33 U/L [facility] Globulin (S) [Mass/Vol] 4.6 g/dL 2.2-4.2 [facility] Lipase [Catalytic activity/Vol] 39 U/L [facility] Comment on above: Please note:LIPASE r evised reference range effective 23. New Lipase methodology. Expected to produce lower values than the previous assay method. NEW Reference Range: 13 - 75 U/L Laboratory - Chemistry and C hemistry - challengeOrdered By: ED PROVIDER on 11-19-2023 CO2 [Moles/Vol] 24.0 mmol/L 21.0-32.0 [facility] Urea nitrogen/Creatinine [Mass ratio] 9.5 mg/mg 10-20 [facility] Laboratory - Hematology and Cell countsOrdered By: ED PROVIDER on 11-19-2023 MCH (RBC) [Entitic mass] 29.9 pg 27.0-32.0 [facility] MCHC (RBC) [Mass/Vol] 34.1 g/dL 32-36 [facility] Nucleated RBC/100 WBC (Bld) [Ratio] 0 % 0-5 [facility] Platelets (Bld) [#/Vol] 306 10*3/uL 150-450 [facility] Mucus LM Ql (Urine sed)Order ed By: Zack Choi on 11-19-2023 Mucus Ql (Urine sed) 0 SEEN /hpf [facility] Nitrite Test strip Ql (U)Ord ered By: Zack Choi on 11-19-2023 Nitrite Ql (U) Negative Negative [facility] No Panel InformationOrdered By: John Shaw on 11-19-2023 3.9 g/dL 2.2-4.2 [facility] 0.9 RATIO 0.9-2.4 [facility] 60 U/L 45-117 [facility] 27 U/L 13-56 [facility] No Panel InformationOrdered By: Zack Choi on 11-19-2023 Urine RBC 0-5 SEEN /hpf 0-5 [facility] 0-5 SEEN /hpf 0-5 [facility] 39 U/L 13-75 [facility] No Panel InformationOrdered By: ED PROVIDER on 11-19-2023 Estimated Creatinine Clearance Calc 34.64 ml/min [facility] Estimated GFR (MDRD) Amer 40 mL/min >60 [facility] Comment on above: GFR Calc Estimated GFR (MDRD) Non-Af Amer 33 mL/min >60 [facility] Comment on above: Non- GFR Calc Platelet mean volume Fercho-Ec ker (Bld) [Entitic vol]Ordered By: ED PROVIDER on 11-19-2023 Platelet mean volume (Bld) [Entitic vol] 10.9 fL 6.2-12.0 [facility] Protein Test strip Ql (U)Ord ered By: Zack Choi on 11-19-2023 Protein Ql (U) 30 mg/dl Negative [facility] RBC Auto (Bld) [#/Vol]Ordere d By: ED PROVIDER on 11-19-2023 RBC (Bld) [#/Vol] 4.58 10*6/uL 4.2-5.4 [facility] Serum or plasma acetone tai urement (mass/volume)Ordered By: ED PROVIDER on 11-19-2023 Acetone [Mass/Vol] Negative NEG [facility] Serum or plasma calcium tai urement (mass/volume)Ordered By: ED PROVIDER on 11-19-2023 Calcium [Mass/Vol] 9.6 mg/dL 8.5-10.[address] [facility] Serum or plasma creatinine m easurement (mass/volume)Ordered By: ED PROVIDER on 11-19-2023 Creatinine [Mass/Vol] 1.68 mg/dL 0.55-1.02 [facility] Comment on above: The validity of the calculated GFR & GFRAA in patients over 70 years has not been determined. Clinical correlation is essential. Serum or plasma urea nitroge n measurement (mass/volume)Ordered By: ED PROVIDER on 11-19-2023 Urea nitrogen [Mass/Vol] 16 mg/dL 7-18 [facility] Squamous epithelial cells de tection in urine sediment by light microscopyOrdered By: Zack Choi on 11-19-2023 Epithelial cells.squamous LM Ql (Urine sed) 10-25 SEEN /hpf 5-10 [facility] Thin prep Papanicolaou smear with manual screeningOrdered By: John Shaw on 11-19-2023 Thin prep Papanicolaou smear with manual screening 3.4 g/dL 3.2-5.0 [facility] Thin prep Papanicolaou smear with manual screening 24 U/L 15-37 [facility] Thin prep Papanicolaou smear with manual screeningOrdered By: Zack Choi on 11-19-2023 Thin prep Papanicolaou smear with manual screening 356 mg/dL 74-106 [facility] Comment on above: MANAGEMENT OF PATIEN T CARE PER NURSING PROTOCOL Thin prep Papanicolaou smear with manual screening 3.9 g/dL 3.2-5.0 [facility] Thin prep Papanicolaou smear with manual screening 30 U/L 15-37 [facility] Comment on above: Slight Hemolysis, Re sult may be falsely increased. Thin prep Papanicolaou smear with manual screeningOrdered By: ED PROVIDER on 11-19-2023 Thin prep Papanicolaou smear with manual screening 11 5-15 [facility] Urine blood detectionOrdered By: Zack Choi on 11-19-2023 RBC Ql (U) 10 /ul Negative [facility] Urine clarityOrdered By: Garland Choi on 11-19-2023 Clarity (U) Sl. Cloudy Clear [facility] Urine color determinationOrd ered By: Zack Choi on 11-19-2023 Color (U) Yellow Yellow [facility] Urine glucose detectionOrder ed By: Zack Chio on 11-19-2023 Glucose Ql (U) 1000 mg/dl Normal [facility] Urine leukocyte esterase det ection by dipstickOrdered By: Zack Choi on 11-19-2023 Leukocyte esterase Test strip Ql (U) 100 /ul Negative [facility] Urine pHOrdered By: Zack james on 11-19-2023 pH (U) 6.0 [pH] 5.0 - 8.0 [facility] Urine sediment bacteria coun t by microscopy (number/high power field)Ordered By: Zack Choi on 11-19-2023 Bacteria LM.HPF (Urine sed) [#/Area] 0 /[HPF] None Seen [facility] Urine sediment yeast count b y microscopy (number/high powered field)Ordered By: Zack Choi on 11-19-2023 Yeast LM.HPF (Urine sed) [#/Area] 2 /[HPF] None Seen [facility] Urine specific gravity measu rementOrdered By: Zack Choi on 11-19-2023 Specific gravity (U) [Rel density] 1.015 1.002-1.03 0 [facility] Urine urobilinogen measureme ntOrdered By: Zack Choi on 11-19-2023 Urobilinogen Ql (U) Normal mg/dl Normal [facility] Absolute lymphocyte countOrd ered By: Bronson Retana on 06-06-2023 Lymphocytes Auto (Unsp spec) [#/Vol] 2.81 10*3/uL 0.83-4.51 [facility] Basophil percentageOrdered B y: Bronson Retana on 06-06-2023 Basophils/100 WBC (Bld) 0.8 % 0-1 [facility] Chloride [Moles/Vol] 94 mmol/L 98-107 [facility] Eosinophils/100 WBC (Bld) 0.9 % 0-5 [facility] Glucose [Mass/Vol] 554 mg/dL 74-[address] [facility] Comment on above: Critical Result(s) C alled at: 18:31:37 06/06/2023 by: AUSTYN ESTRELLA. TO BARBARA SALAS RN ER Results read back by same.Glucose result greater than or equal to 200 mg/dLsuggests DIABETES MELLITUS per A.D.A. criteria. Neutrophils (Bld) [#/Vol] 3.2 10*3/uL 2.0-7.7 [facility] Neutrophils/100 WBC (Bld) 50.5 % 47-70 [facility] Potassium [Moles/Vol] 3.6 mmol/L 3.5-5.1 [facility] Sodium [Moles/Vol] 129 mmol/L 136-[address] [facility] WBC (Bld) [#/Vol] 6.4 10*3/uL 4.4-11.[address] [facility] Blood erythrocytes count (nu mber/volume)Ordered By: Bronson Retana on 06-06-2023 RBC (Bld) [#/Vol] 4.77 10*6/uL 4.2-5.4 [facility] Blood hemoglobin measurement (mass/volume)Ordered By: Bronson Retana on 06-06-2023 Hemoglobin (Bld) [Mass/Vol] 13.7 g/dL 12.0-15.0 [facility] Blood lymphocytes/100 leukoc ytesOrdered By: Bronson Retana on 06-06-2023 Lymphocytes/100 WBC (Bld) 44.0 % 19-41 [facility] Blood monocytes/100 leukocyt esOrdered By: Bronson Retana on 06-06-2023 Monocytes/100 WBC (Bld) 3.3 % 0-10 [facility] Blood platelet mean volumeOr dered By: Bronson Retana on 06-06-2023 Platelet mean volume (Bld) [Entitic vol] 10.7 fL 6.2-12.0 [facility] Determination of erythrocyte mean corpuscular volume (MCV)Ordered By: Bronson Retana on 06-06-2023 MCV (RBC) [Entitic vol] 89.3 fL 81-99 [facility] Glucose Glucometer (BldC) [M ass/Vol]Ordered By: Bronson Retana on 06-06-2023 Glucose [Mass/Vol] 327 mg/dL 74-[address] [facility] Comment on above: MANAGEMENT OF PATIEN T CARE PER NURSING PROTOCOL Hematocrit Auto (Bld) [Volum e fraction]Ordered By: Bronson Retana on 06-06-2023 Hematocrit (Bld) [Volume fraction] 42.6 % 37-47 [facility] Laboratory - Chemistry and C hemistry - challengeOrdered By: Bronson Retana on 06-06-2023 CO2 [Moles/Vol] 23.0 mmol/L 21.0-32.0 [facility] Urea nitrogen/Creatinine [Mass ratio] 7.5 mg/mg 10-20 [facility] - Hematology and Cell countsOrdered By: Bronson Retana on 06-06-2023 Erythrocyte distribution width (RBC) [Entitic vol] 44.1 fL 35.1-43.[address] [facility] Erythrocyte distribution width (RBC) [Ratio] 13.4 % 11.6-14.6 [facility] Immature granulocytes/100 WBC (Bld) 0.500 % 0.0-0.9 [facility] Comment on above: IG% - Immature Granu locytes (promyelocytes, myelocytes and metamyelocytes) > 1% indicates that a LEFT SHIFT is Present. MCH (RBC) [Entitic mass] 28.7 pg 27.0-32.0 [facility] Nucleated RBC/100 WBC (Bld) [Ratio] 0 % 0-5 [facility] MCHC Auto (RBC) [Mass/Vol]Or dered By: Bronson Retana on 06-06-2023 MCHC (RBC) [Mass/Vol] 32.2 g/dL 32-36 [facility] No Panel InformationOrdered By: Bronson Retana on 06-06-2023 Estimated GFR (MDRD) Amer 52 mL/min >60 [facility] Comment on above: GFR Calc Estimated GFR (MDRD) Non-Af Amer 43 mL/min >60 [facility] Comment on above: Non- GFR Calc Platelets bldOrdered By: Yoni Retana on 06-06-2023 Platelets (Bld) [#/Vol] 233 10*3/uL 150-450 [facility] Serum or plasma acetone tai urement (mass/volume)Ordered By: Bronson Retana on 06-06-2023 Acetone [Mass/Vol] Negative NEG [facility] Serum or plasma calcium tai urement (mass/volume)Ordered By: Bronson Retana on 06-06-2023 Calcium [Mass/Vol] 8.9 mg/dL 8.5-10.[address] [facility] Serum or plasma creatinine m easurement (mass/volume)Ordered By: Bronson Retana on 06-06-2023 Creatinine [Mass/Vol] 1.34 mg/dL 0.55-1.02 [facility] Comment on above: The validity of the calculated GFR & GFRAA in patients over 70 years has not been determined. Clinical correlation is essential. Serum or plasma urea nitroge n measurement (mass/volume)Ordered By: Bronson Retana on 06-06-2023 Urea nitrogen [Mass/Vol] 10 mg/dL 7-18 [facility] Thin prep Papanicolaou smear with manual screeningOrdered By: Bronson Retana on 06-06-2023 Thin prep Papanicolaou smear with manual screening 12 5-15 [facility] Absolute lymphocyte countOrd ered By: ED PROVIDER on 06-04-2023 Lymphocytes Auto (Unsp spec) [#/Vol] 2.58 10*3/uL 0.83-4.51 [facility] Basophil percentageOrdered B y: Bronson Retana on 06-04-2023 Basophil percentage 0-5 SEEN /hpf 0-5 [facility] Basophil percentageOrdered B y: ED PROVIDER on 06-04-2023 Basophils/100 WBC (Bld) 0.8 % 0-1 [facility] Bilirubin [Mass/Vol] 0.80 mg/dL 0.20-1.00 [facility] Comment on above: For patients on eltr ombopag therapy, use of Dimension Bath TBIL is not recommended. Chloride [Moles/Vol] 90 mmol/L 98-107 [facility] Eosinophils/100 WBC (Bld) 0.5 % 0-5 [facility] Glucose [Mass/Vol] 491 mg/dL 74-[address] [facility] Comment on above: Critical Result(s) C alled at: 15:52:49 06/04/2023 by: Tomasa Romero. Results read back by same.Glucose result greater than or equal to 200 mg/dLsuggests DIABETES MELLITUS per A.D.A. criteria. Neutrophils (Bld) [#/Vol] 3.6 10*3/uL 2.0-7.7 [facility] Neutrophils/100 WBC (Bld) 55.4 % 47-70 [facility] Potassium [Moles/Vol] 3.8 mmol/L 3.5-5.1 [facility] Protein [Mass/Vol] 7.6 g/dL 6.4-8.[address] [facility] Sodium [Moles/Vol] 127 mmol/L 136-[address] [facility] WBC (Bld) [#/Vol] 6.5 10*3/uL 4.4-11.[address] [facility] Bilirubin Test strip Ql (U)O rdered By: Bronson Retana on 06-04-2023 Bilirubin Ql (U) Negative Negative [facility] Blood erythrocytes count (nu mber/volume)Ordered By: ED PROVIDER on 06-04-2023 RBC (Bld) [#/Vol] 4.83 10*6/uL 4.2-5.4 [facility] Blood hemoglobin measurement (mass/volume)Ordered By: ED PROVIDER on 06-04-2023 Hemoglobin (Bld) [Mass/Vol] 14.0 g/dL 12.0-15.0 [facility] Blood lymphocytes/100 leukoc ytesOrdered By: ED PROVIDER on 06-04-2023 Lymphocytes/100 WBC (Bld) 39.6 % 19-41 [facility] Blood monocytes/100 leukocyt esOrdered By: ED PROVIDER on 06-04-2023 Monocytes/100 WBC (Bld) 3.2 % 0-10 [facility] Blood platelet mean volumeOr dered By: ED PROVIDER on 06-04-2023 Platelet mean volume (Bld) [Entitic vol] 10.7 fL 6.2-12.0 [facility] Determination of erythrocyte mean corpuscular volume (MCV)Ordered By: ED PROVIDER on 06-04-2023 MCV (RBC) [Entitic vol] 87.0 fL 81-99 [facility] Glucose Glucometer (BldC) [M ass/Vol]Ordered By: Bronson Retana on 06-04-2023 Glucose [Mass/Vol] 274 mg/dL 74-[address] [facility] Comment on above: MANAGEMENT OF PATIEN T CARE PER NURSING PROTOCOL Glucose [Mass/Vol] 379 mg/dL 74-[address] [facility] Comment on above: MANAGEMENT OF PATIEN T CARE PER NURSING PROTOCOL Hematocrit Auto (Bld) [Volum e fraction]Ordered By: ED PROVIDER on 06-04-2023 Hematocrit (Bld) [Volume fraction] 42.0 % 37-47 [facility] Ketones Test strip Ql (U)Ord ered By: Bronson Retana on 06-04-2023 Ketones Ql (U) 15 mg/dl Negative [facility] Laboratory - Chemistry and C hemistry - challengeOrdered By: ED PROVIDER on 06-04-2023 ALP [Catalytic activity/Vol] 78 U/L 45-117 [facility] ALT [Catalytic activity/Vol] 29 U/L 13-56 [facility] CO2 [Moles/Vol] 27.0 mmol/L 21.0-32.0 [facility] Globulin (S) [Mass/Vol] 4.1 g/dL 2.2-4.2 [facility] Urea nitrogen/Creatinine [Mass ratio] 10.6 mg/mg 10-20 [facility] Laboratory - Chemistry and C hemistry - challengeOrdered By: Bronson Retana on 06-04-2023 Lipase [Catalytic activity/Vol] 39 U/L 13-75 [facility] Comment on above: Please note:LIPASE r evised reference range effective 23. New Lipase methodology. Expected to produce lower values than the previous assay method. NEW Reference Range: 13 - 75 U/L Laboratory - Hematology and Cell countsOrdered By: ED PROVIDER on 06-04-2023 Erythrocyte distribution width (RBC) [Entitic vol] 42.1 fL 35.1-43.[address] [facility] Erythrocyte distribution width (RBC) [Ratio] 13.3 % 11.6-14.6 [facility] Immature granulocytes/100 WBC (Bld) 0.500 % 0.0-0.9 [facility] Comment on above: IG% - Immature Granu locytes (promyelocytes, myelocytes and metamyelocytes) > 1% indicates that a LEFT SHIFT is Present. MCH (RBC) [Entitic mass] 29.0 pg 27.0-32.0 [facility] Nucleated RBC/100 WBC (Bld) [Ratio] 0 % 0-5 [facility] MCHC Auto (RBC) [Mass/Vol]Or dered By: ED PROVIDER on 06-04-2023 MCHC (RBC) [Mass/Vol] 33.3 g/dL 32-36 [facility] Mucus LM Ql (Urine sed)Order ed By: Bronson Retana on 06-04-2023 Mucus Ql (Urine sed) 0 SEEN /hpf [facility] Nitrite Test strip Ql (U)Ord ered By: Bronson Retana on 06-04-2023 Nitrite Ql (U) Negative Negative [facility] No Panel InformationOrdered By: ED PROVIDER on 06-04-2023 Estimated GFR (MDRD) Amer 53 mL/min >60 [facility] Comment on above: GFR Calc Estimated GFR (MDRD) Non-Af Amer 44 mL/min >60 [facility] Comment on above: Non- GFR Calc Platelets bldOrdered By: ED PROVIDER on 06-04-2023 Platelets (Bld) [#/Vol] 240 10*3/uL 150-450 [facility] Protein Test strip Ql (U)Ord ered By: Bronson Retana on 06-04-2023 Protein Ql (U) 30 mg/dl Negative [facility] Serum or plasma albumin tai urement (mass/volume)Ordered By: ED PROVIDER on 06-04-2023 Albumin [Mass/Vol] 3.5 g/dL 3.2-5.[address] [facility] Serum or plasma albumin/glob ulin mass ratioOrdered By: ED PROVIDER on 06-04-2023 Albumin/Globulin [Mass ratio] 0.9 {ratio} 0.9-2.4 [facility] Serum or plasma calcium tai urement (mass/volume)Ordered By: ED PROVIDER on 06-04-2023 Calcium [Mass/Vol] 9.1 mg/dL 8.5-10.[address] [facility] Serum or plasma creatinine m easurement (mass/volume)Ordered By: ED PROVIDER on 06-04-2023 Creatinine [Mass/Vol] 1.32 mg/dL 0.55-1.02 [facility] Comment on above: The validity of the calculated GFR & GFRAA in patients over 70 years has not been determined. Clinical correlation is essential. Serum or plasma urea nitroge n measurement (mass/volume)Ordered By: ED PROVIDER on 06-04-2023 Urea nitrogen [Mass/Vol] 14 mg/dL 7-18 [facility] Squamous epithelial cells de tection in urine sediment by light microscopyOrdered By: Bronson Retana on 06-04-2023 Epithelial cells.squamous LM Ql (Urine sed) 0-5 SEEN /hpf 5-10 [facility] Thin prep Papanicolaou smear with manual screeningOrdered By: ED PROVIDER on 06-04-2023 Thin prep Papanicolaou smear with manual screening 21 U/L 15-37 [facility] Thin prep Papanicolaou smear with manual screening 10 5-15 [facility] Urine blood detectionOrdered By: Bronson Retana on 06-04-2023 RBC Ql (U) 10 /ul Negative [facility] RBC Ql (U) 0 SEEN /hpf 0-5 [facility] Urine clarityOrdered By: Yoni Retana on 06-04-2023 Clarity (U) Clear Clear [facility] Urine color determinationOrd ered By: Bronson Retana on 06-04-2023 Color (U) Yellow Yellow [facility] Urine glucose detectionOrder ed By: Bronson Retana on 06-04-2023 Glucose Ql (U) 1000 mg/dl Normal [facility] Urine leukocyte esterase det ection by dipstickOrdered By: Bronson Retana on 06-04-2023 Leukocyte esterase Test strip Ql (U) 25 /ul Negative [facility] Urine pHOrdered By: Bronson bonilla on 06-04-2023 pH (U) 6.5 [pH] 5.0 - 8.0 [facility] Urine sediment bacteria coun t by microscopy (number/high power field)Ordered By: Bronson Retana on 06-04-2023 Bacteria LM.HPF (Urine sed) [#/Area] 0 /[HPF] None Seen [facility] Urine sediment yeast count b y microscopy (number/high powered field)Ordered By: Bronson Retana on 06-04-2023 Yeast LM.HPF (Urine sed) [#/Area] RARE /hpf None Seen [facility] Urine specific gravity measu rementOrdered By: Bronson Retana on 06-04-2023 Specific gravity (U) [Rel density] 1.010 1.002-1.03 0 [facility] Urobilinogen Auto test strip Ql (U)Ordered By: Bronson Retana on 06-04-2023 Urobilinogen Ql (U) Normal mg/dl Normal [facility] Absolute lymphocyte countOrd ered By: Dr. Peterson on 03-28-2023 Lymphocytes Auto (Unsp spec) [#/Vol] 2.76 10*3/uL 0.83-4.51 [facility] Basophil percentageOrdered B y: Dr. Peterson on 03-28-2023 Basophils/100 WBC (Bld) 0.5 % 0-1 [facility] Bilirubin [Mass/Vol] 0.60 mg/dL 0.20-1.00 [facility] Comment on above: For patients on eltr ombopag therapy, use of Dimension Bath TBIL is not recommended. Chloride [Moles/Vol] 100 mmol/L 98-107 [facility] Eosinophils/100 WBC (Bld) 0.9 % 0-5 [facility] Glucose [Mass/Vol] 374 mg/dL 74-[address] [facility] Comment on above: Glucose result great er than or equal to 200 mg/dLsuggests DIABETES MELLITUS per A.D.A. criteria. Neutrophils (Bld) [#/Vol] 8.7 10*3/uL 2.0-7.7 [facility] Neutrophils/100 WBC (Bld) 71.5 % 47-70 [facility] Potassium [Moles/Vol] 4.3 mmol/L 3.5-5.1 [facility] Protein [Mass/Vol] 7.6 g/dL 6.4-8.[address] [facility] Sodium [Moles/Vol] 134 mmol/L 136-[address] [facility] WBC (Bld) [#/Vol] 12.1 10*3/uL 4.4-11.0 [facility] Blood erythrocytes count (nu mber/volume)Ordered By: Dr. Peterson on 03-28-2023 RBC (Bld) [#/Vol] 4.33 10*6/uL 4.2-5.4 [facility] Blood hemoglobin measurement (mass/volume)Ordered By: Dr. Peterson on 03-28-2023 Hemoglobin (Bld) [Mass/Vol] 12.4 g/dL 12.0-15.0 [facility] Blood lymphocytes/100 leukoc ytesOrdered By: Dr. Peterson on 03-28-2023 Lymphocytes/100 WBC (Bld) 22.8 % 19-41 [facility] Blood monocytes/100 leukocyt esOrdered By: Dr. Peterson on 03-28-2023 Monocytes/100 WBC (Bld) 3.9 % 0-10 [facility] Blood platelet mean volumeOr dered By: Dr. Peterson on 03-28-2023 Platelet mean volume (Bld) [Entitic vol] 9.3 fL 6.2-12.0 [facility] Determination of erythrocyte mean corpuscular volume (MCV)Ordered By: Dr. Peterson on 03-28-2023 MCV (RBC) [Entitic vol] 90.5 fL 81-99 [facility] Hematocrit Auto (Bld) [Volum e fraction]Ordered By: Dr. Peterson on 03-28-2023 Hematocrit (Bld) [Volume fraction] 39.2 % 37-47 [facility] Laboratory - Chemistry and C hemistry - challengeOrdered By: Dr. Peterson on 03-28-2023 ALP [Catalytic activity/Vol] 75 U/L 45-117 [facility] ALT [Catalytic activity/Vol] 32 U/L 13-56 [facility] CO2 [Moles/Vol] 22.0 mmol/L 21.0-32.0 [facility] Globulin (S) [Mass/Vol] 4.1 g/dL 2.2-4.2 [facility] Urea nitrogen/Creatinine [Mass ratio] 17.9 mg/mg 10-20 [facility] Laboratory - Hematology and Cell countsOrdered By: Dr. Peterson on 03-28-2023 Erythrocyte distribution width (RBC) [Entitic vol] 42.0 fL 35.1-43.[address] [facility] Erythrocyte distribution width (RBC) [Ratio] 12.7 % 11.6-14.6 [facility] Immature granulocytes/100 WBC (Bld) 0.400 % 0.0-0.9 [facility] Comment on above: IG% - Immature Granu locytes (promyelocytes, myelocytes and metamyelocytes) > 1% indicates that a LEFT SHIFT is Present. MCH (RBC) [Entitic mass] 28.6 pg 27.0-32.0 [facility] Nucleated RBC/100 WBC (Bld) [Ratio] 0 % 0-5 [facility] MCHC Auto (RBC) [Mass/Vol]Or dered By: Dr. Peterson on 03-28-2023 MCHC (RBC) [Mass/Vol] 31.6 g/dL 32-36 [facility] No Panel InformationOrdered By: Dr. Peterson on 03-28-2023 Estimated Creatinine Clearance Calc 32.47 ml/min [facility] Estimated GFR (MDRD) Amer 52 mL/min >60 [facility] Comment on above: GFR Calc Estimated GFR (MDRD) Non-Af Amer 43 mL/min >60 [facility] Comment on above: Non- GFR Calc Platelets bldOrdered By: Dr. Peterson on 03-28-2023 Platelets (Bld) [#/Vol] 347 10*3/uL 150-450 [facility] Serum or plasma albumin tai urement (mass/volume)Ordered By: Dr. Peterson on 03-28-2023 Albumin [Mass/Vol] 3.5 g/dL 3.2-5.[address] [facility] Serum or plasma albumin/glob ulin mass ratioOrdered By: Dr. Peterson on 03-28-2023 Albumin/Globulin [Mass ratio] 0.9 {ratio} 0.9-2.4 [facility] Serum or plasma calcium tai urement (mass/volume)Ordered By: Dr. Peterson on 03-28-2023 Calcium [Mass/Vol] 9.1 mg/dL 8.5-10.[address] [facility] Serum or plasma creatinine m easurement (mass/volume)Ordered By: Dr. Peterson on 03-28-2023 Creatinine [Mass/Vol] 1.34 mg/dL 0.55-1.02 [facility] Comment on above: The validity of the calculated GFR & GFRAA in patients over 70 years has not been determined. Clinical correlation is essential. Serum or plasma urea nitroge n measurement (mass/volume)Ordered By: Dr. Peterson on 03-28-2023 Urea nitrogen [Mass/Vol] 24 mg/dL 7-18 [facility] Thin prep Papanicolaou smear with manual screeningOrdered By: Dr. Peterson on 03-28-2023 Thin prep Papanicolaou smear with manual screening 29 U/L 15-37 [facility] Thin prep Papanicolaou smear with manual screening 12 5-15 [facility] Basophil percentageOrdered B y: Lizet Linares on 03-16-2023 Chloride [Moles/Vol] 105 mmol/L 98-107 [facility] Glucose [Mass/Vol] 171 mg/dL 74-[address] [facility] Comment on above: Fasting Glucose resu lt greater than or equal to 126 mg/dL suggests DIABETES MELLITUS per A.D.A. criteria. Potassium [Moles/Vol] 3.8 mmol/L 3.5-5.1 [facility] Sodium [Moles/Vol] 139 mmol/L 136-[address] [facility] WBC (Bld) [#/Vol] 7.0 10*3/uL 4.4-11.[address] [facility] Blood erythrocytes count (nu mber/volume)Ordered By: Lizet Linares on 03-16-2023 RBC (Bld) [#/Vol] 3.74 10*6/uL 4.2-5.4 [facility] Blood hemoglobin measurement (mass/volume)Ordered By: Lizet Linares on 03-16-2023 Hemoglobin (Bld) [Mass/Vol] 10.8 g/dL 12.0-15.0 [facility] Blood platelet mean volumeOr dered By: Lizet Linares on 03-16-2023 Platelet mean volume (Bld) [Entitic vol] 9.6 fL 6.2-12.0 [facility] Determination of erythrocyte mean corpuscular volume (MCV)Ordered By: Lizet Linares on 03-16-2023 MCV (RBC) [Entitic vol] 93.0 fL 81-99 [facility] Hematocrit Auto (Bld) [Volum e fraction]Ordered By: Lizet Linares on 03-16-2023 Hematocrit (Bld) [Volume fraction] 34.8 % 37-47 [facility] - Chemistry and C hemistry - challengeOrdered By: Lizet Linares on 03-16-2023 CO2 [Moles/Vol] 27.0 mmol/L 21.0-32.0 [facility] Urea nitrogen/Creatinine [Mass ratio] 18.0 mg/mg 10-20 [facility] - Hematology and Cell countsOrdered By: Lizet Linares on 03-16-2023 Erythrocyte distribution width (RBC) [Entitic vol] 44.1 fL 35.1-43.[address] [facility] Erythrocyte distribution width (RBC) [Ratio] 13.0 % 11.6-14.6 [facility] MCH (RBC) [Entitic mass] 28.9 pg 27.0-32.0 [facility] MCHC Auto (RBC) [Mass/Vol]Or dered By: Lizet Linares on 03-16-2023 MCHC (RBC) [Mass/Vol] 31.0 g/dL 32-36 [facility] No Panel InformationOrdered By: Lizet Linares on 03-16-2023 Estimated GFR (MDRD) Amer 73 mL/min >60 [facility] Comment on above: GFR Calc Estimated GFR (MDRD) Non-Af Amer 60 mL/min >60 [facility] Comment on above: Non- GFR Calc Platelets bldOrdered By: Bart Linares on 03-16-2023 Platelets (Bld) [#/Vol] 277 10*3/uL 150-450 [facility] Serum or plasma calcium tai urement (mass/volume)Ordered By: Lizet Linares on 03-16-2023 Calcium [Mass/Vol] 8.8 mg/dL 8.5-10.[address] [facility] Serum or plasma creatinine m easurement (mass/volume)Ordered By: Lizet Linares on 03-16-2023 Creatinine [Mass/Vol] 1.00 mg/dL 0.55-1.02 [facility] Comment on above: The validity of the calculated GFR & GFRAA in patients over 70 years has not been determined. Clinical correlation is essential. Serum or plasma urea nitroge n measurement (mass/volume)Ordered By: Lizet Linares on 03-16-2023 Urea nitrogen [Mass/Vol] 18 mg/dL 7-18 [facility] Thin prep Papanicolaou smear with manual screeningOrdered By: Lizet Linares on 03-16-2023 Thin prep Papanicolaou smear with manual screening 7 5-15 [facility] Basophil percentageOrdered B y: Ganesh Garcia on 03-02-2023 Chloride [Moles/Vol] 106 mmol/L 98-107 [facility] Glucose [Mass/Vol] 241 mg/dL 74-[address] [facility] Comment on above: Glucose result great er than or equal to 200 mg/dLsuggests DIABETES MELLITUS per A.D.A. criteria. Potassium [Moles/Vol] 4.2 mmol/L 3.5-5.1 [facility] Sodium [Moles/Vol] 138 mmol/L 136-[address] [facility] WBC (Bld) [#/Vol] 6.4 10*3/uL 4.4-11.[address] [facility] Blood erythrocytes count (nu mber/volume)Ordered By: Ganesh Garcia on 03-02-2023 RBC (Bld) [#/Vol] 3.81 10*6/uL 4.2-5.4 [facility] Blood hemoglobin measurement (mass/volume)Ordered By: Ganesh Garcia on 03-02-2023 Hemoglobin (Bld) [Mass/Vol] 11.2 g/dL 12.0-15.0 [facility] Blood platelet mean volumeOr dered By: Ganesh Garcia on 03-02-2023 Platelet mean volume (Bld) [Entitic vol] 9.5 fL 6.2-12.0 [facility] Determination of erythrocyte mean corpuscular volume (MCV)Ordered By: Ganesh Garcia on 03-02-2023 MCV (RBC) [Entitic vol] 92.7 fL 81-99 [facility] Hematocrit Auto (Bld) [Volum e fraction]Ordered By: Ganesh Garcia on 03-02-2023 Hematocrit (Bld) [Volume fraction] 35.3 % 37-47 [facility] - Chemistry and C hemistry - challengeOrdered By: Ganesh Garcia on 03-02-2023 CO2 [Moles/Vol] 26.0 mmol/L 21.0-32.0 [facility] Urea nitrogen/Creatinine [Mass ratio] 21.9 mg/mg 10-20 [facility] - Hematology and Cell countsOrdered By: Ganesh Garcia on 03-02-2023 Erythrocyte distribution width (RBC) [Entitic vol] 44.9 fL 35.1-43.[address] [facility] Erythrocyte distribution width (RBC) [Ratio] 13.2 % 11.6-14.6 [facility] MCH (RBC) [Entitic mass] 29.4 pg 27.0-32.0 [facility] MCHC Auto (RBC) [Mass/Vol]Or dered By: Ganesh Garcia on 03-02-2023 MCHC (RBC) [Mass/Vol] 31.7 g/dL 32-36 [facility] No Panel InformationOrdered By: Ganesh Garcia on 03-02-2023 Estimated GFR (MDRD) Amer 81 mL/min >60 [facility] Comment on above: GFR Calc Estimated GFR (MDRD) Non-Af Amer 67 mL/min >60 [facility] Comment on above: Non- GFR Calc Platelets bldOrdered By: Robert Garcia on 03-02-2023 Platelets (Bld) [#/Vol] 292 10*3/uL 150-450 [facility] Serum or plasma calcium tai urement (mass/volume)Ordered By: Ganesh Garcia on 03-02-2023 Calcium [Mass/Vol] 9.0 mg/dL 8.5-10.[address] [facility] Serum or plasma creatinine m easurement (mass/volume)Ordered By: Ganesh Garcia on 03-02-2023 Creatinine [Mass/Vol] 0.92 mg/dL 0.55-1.02 [facility] Comment on above: The validity of the calculated GFR & GFRAA in patients over 70 years has not been determined. Clinical correlation is essential. Serum or plasma urea nitroge n measurement (mass/volume)Ordered By: Ganesh Garcia on 03-02-2023 Urea nitrogen [Mass/Vol] 20 mg/dL 7-18 [facility] Thin prep Papanicolaou smear with manual screeningOrdered By: Ganesh Garcia on 03-02-2023 Thin prep Papanicolaou smear with manual screening 6 5-15 [facility] - Drug toxicology Ordered By: Dr. Renteria on 03-01-2023 Amphetamines Ql (U) Negative <1000 ng/mL [facility] Benzodiazepines Ql (U) Negative < 200 ng/mL [facility] Cannabinoids Screen Ql (U) Negative < 50 ng/mL [facility] Cocaine Ql (U) Negative < 300 ng/mL [facility] Opiates Ql (U) Negative < 300 ng/mL [facility] No Panel InformationOrdered By: Dr. Renteria on 03-01-2023 MDMA (Ecstasy) Screen Negative < 500 ng/mL [facility] Miscellaneous Test See comment [facility] Comment on above: [id number]+OXYCODONE-B UND (ng/mL) DRUG RESULT SCREEN CUTOFF____ Amphetamines,Urine Negative ng/mL 1000 Amphetamine test includes Amphetamine and Methamphetamine.Barbiturates Negative ng/mL 200Benzodiazepines Negative ng/mL 200Cannabinoid Negative ng/mL 20Cocaine (Metab) Negative ng/mL 300Opiates Negative ng/mL 300 Opiates test includes Codeine, Morphine, Hydromorphone, Hydrocodone. Oxycodone/Oxymorphone,Urine Negative ng/mL 300 Test includes Oxydodone and Oxymorphone. TESTING PERFORMED AT [facility]. ORIGINAL REPORT ON FILE IN LAB CONTAINS ADDITIONAL TEST SITE INFORMATION. Urine Barbiturates Screen Negative < 200 ng/mL [facility] Urine Drug Screen Comment [facility] Comment on above: CONFIRMATORY TESTING FOR ALL [...] Urine Methadone Screen Negative < 300 ng/mL [facility] Urine phencyclidine (PCP) de tectionOrdered By: Dr. Renteria on 03-01-2023 Phencyclidine Ql (U) Negative < 25 ng/mL [facility] Basophil percentageOrdered B y: Lizet Linares on 02-16-2023 Chloride [Moles/Vol] 102 mmol/L 98-107 [facility] Glucose [Mass/Vol] 380 mg/dL 74-[address] [facility] Comment on above: Glucose result great er than or equal to 200 mg/dLsuggests DIABETES MELLITUS per A.D.A. criteria. Potassium [Moles/Vol] 4.1 mmol/L 3.5-5.1 [facility] Sodium [Moles/Vol] 133 mmol/L 136-[address] [facility] WBC (Bld) [#/Vol] 6.8 10*3/uL 4.4-11.[address] [facility] Blood erythrocytes count (nu mber/volume)Ordered By: Lizet Linares on 02-16-2023 RBC (Bld) [#/Vol] 3.97 10*6/uL 4.2-5.4 [facility] Blood hemoglobin measurement (mass/volume)Ordered By: Lizet Linares on 02-16-2023 Hemoglobin (Bld) [Mass/Vol] 11.8 g/dL 12.0-15.0 [facility] Blood platelet mean volumeOr dered By: Lizet Linares on 02-16-2023 Platelet mean volume (Bld) [Entitic vol] 9.6 fL 6.2-12.0 [facility] Determination of erythrocyte mean corpuscular volume (MCV)Ordered By: Lizet Linares on 02-16-2023 MCV (RBC) [Entitic vol] 92.2 fL 81-99 [facility] Hematocrit Auto (Bld) [Volum e fraction]Ordered By: Lizet Linares on 02-16-2023 Hematocrit (Bld) [Volume fraction] 36.6 % 37-47 [facility] - Chemistry and C hemistry - challengeOrdered By: Lizet Linares on 02-16-2023 CO2 [Moles/Vol] 29.0 mmol/L 21.0-32.0 [facility] Urea nitrogen/Creatinine [Mass ratio] 19.4 mg/mg 10-20 [facility] - Hematology and Cell countsOrdered By: Lizet Linares on 02-16-2023 Erythrocyte distribution width (RBC) [Entitic vol] 45.4 fL 35.1-43.[address] [facility] Erythrocyte distribution width (RBC) [Ratio] 13.4 % 11.6-14.6 [facility] MCH (RBC) [Entitic mass] 29.7 pg 27.0-32.0 [facility] MCHC Auto (RBC) [Mass/Vol]Or dered By: Lizet Linares on 02-16-2023 MCHC (RBC) [Mass/Vol] 32.2 g/dL 32-36 [facility] No Panel InformationOrdered By: Lizet Linares on 02-16-2023 Estimated GFR (MDRD) Amer 70 mL/min >60 [facility] Comment on above: GFR Calc Estimated GFR (MDRD) Non-Af Amer 58 mL/min >60 [facility] Comment on above: Non- GFR Calc Platelets bldOrdered By: Bart Linares on 02-16-2023 Platelets (Bld) [#/Vol] 251 10*3/uL 150-450 [facility] Serum or plasma calcium tai urement (mass/volume)Ordered By: Lizet Linares on 02-16-2023 Calcium [Mass/Vol] 8.7 mg/dL 8.5-10.[address] [facility] Serum or plasma creatinine m easurement (mass/volume)Ordered By: Lizet Linares on 02-16-2023 Creatinine [Mass/Vol] 1.03 mg/dL 0.55-1.02 [facility] Comment on above: The validity of the calculated GFR & GFRAA in patients over 70 years has not been determined. Clinical correlation is essential. Serum or plasma urea nitroge n measurement (mass/volume)Ordered By: Lizet Linares on 02-16-2023 Urea nitrogen [Mass/Vol] 20 mg/dL 7-18 [facility] Thin prep Papanicolaou smear with manual screeningOrdered By: Lizet Linares on 02-16-2023 Thin prep Papanicolaou smear with manual screening 2 5-15 [facility] Absolute lymphocyte countOrd ered By: Lizet Linares on 02-02-2023 Lymphocytes Auto (Unsp spec) [#/Vol] 3.01 10*3/uL 0.83-4.51 [facility] Basophil percentageOrdered B y: Lizet Linares on 02-02-2023 Basophil percentage 247 mg/dL 74-106 [facility] Basophil percentage 136 mmol/L 136-145 [facility] Basophil percentage 4.2 mmol/L 3.5-5.1 [facility] Basophil percentage 103 mmol/L 98-107 [facility] Basophils (Bld) [#/Vol] 9.3 10*3/uL 4.4-11.0 [facility] Basophils (Bld) [#/Vol] 5.7 10*3/uL 2.0-7.7 [facility] Basophils/100 WBC (Bld) 60.8 % 47-70 [facility] Basophils/100 WBC (Bld) 0.4 % 0-5 [facility] Basophils/100 WBC (Bld) 0.6 % 0-1 [facility] Chloride [Moles/Vol] 103 mmol/L 98-107 [facility] Eosinophils/100 WBC (Bld) 0.4 % 0-5 [facility] Glucose [Mass/Vol] 247 mg/dL 74-[address] [facility] Comment on above: Glucose result great er than or equal to 200 mg/dLsuggests DIABETES MELLITUS per A.D.A. criteria. Neutrophils (Bld) [#/Vol] 5.7 10*3/uL 2.0-7.7 [facility] Neutrophils/100 WBC (Bld) 60.8 % 47-70 [facility] Potassium [Moles/Vol] 4.2 mmol/L 3.5-5.1 [facility] Sodium [Moles/Vol] 136 mmol/L 136-[address] [facility] WBC (Bld) [#/Vol] 9.3 10*3/uL 4.4-11.[address] [facility] Blood erythrocytes count (nu mber/volume)Ordered By: Lizet Linares on 02-02-2023 RBC (Bld) [#/Vol] 3.83 10*6/uL 4.2-5.4 [facility] Blood hemoglobin measurement (mass/volume)Ordered By: Lizet Linares on 02-02-2023 Hemoglobin (Bld) [Mass/Vol] 11.3 g/dL 12.0-15.0 [facility] Blood lymphocytes/100 leukoc ytesOrdered By: [facility]nat[facility] Lina[facility] on 02-02-2023 Lymphocytes/100 WBC (Bld) 32.3 % 19-41 [facility] Blood monocytes/100 leukocyt esOrdered By: marcelle Linares on 02-02-2023 Monocytes/100 WBC (Bld) 5.6 % 0-10 [facility] Blood platelet mean volumeOr dered By: Hollyerminenatasha Linares on 02-02-2023 Platelet mean volume (Bld) [Entitic vol] 9.6 fL 6.2-12.0 [facility] Determination of erythrocyte mean corpuscular volume (MCV)Ordered By: Lizet Linares on 02-02-2023 MCV (RBC) [Entitic vol] 90.9 fL 81-99 [facility] Hematocrit Auto (Bld) [Volum e fraction]Ordered By: Hollyerminenatasha Linares on 02-02-2023 Hematocrit (Bld) [Volume fraction] 34.8 % 37-47 [facility] - Chemistry and C hemistry - challengeOrdered By: Lizet Linares on 02-02-2023 CO2 [Moles/Vol] 26.0 mmol/L 21.0-32.0 [facility] Urea nitrogen/Creatinine [Mass ratio] 28.8 mg/mg 10-20 [facility] - Hematology and Cell countsOrdered By: Lizet Linares on 02-02-2023 Erythrocyte distribution width (RBC) [Entitic vol] 44.8 fL 35.1-43.[address] [facility] Erythrocyte distribution width (RBC) [Ratio] 13.3 % 11.6-14.6 [facility] Immature granulocytes/100 WBC (Bld) 0.300 % 0.0-0.9 [facility] Comment on above: IG% - Immature Granu locytes (promyelocytes, myelocytes and metamyelocytes) > 1% indicates that a LEFT SHIFT is Present. MCH (RBC) [Entitic mass] 29.5 pg 27.0-32.0 [facility] Nucleated RBC/100 WBC (Bld) [Ratio] 0 % 0-5 [facility] MCHC Auto (RBC) [Mass/Vol]Or dered By: Lizet Linares on 02-02-2023 MCHC (RBC) [Mass/Vol] 32.5 g/dL 32-36 [facility] No Panel InformationOrdered By: Lizet Linares on 02-02-2023 Estimated GFR (MDRD) Amer 65 mL/min >60 [facility] Comment on above: GFR Calc Estimated GFR (MDRD) Non-Af Amer 53 mL/min >60 [facility] Comment on above: Non- GFR Calc 29.5 pg 27.0-32.0 [facility] 13.3 % 11.6-14.6 [facility] 44.8 fl 35.1-43.9 [facility] 0.300 % 0.0-0.9 [facility] 0 % 0-5 [facility] 53 mL/min >60 [facility] 65 mL/min >60 [facility] 28.8 RATIO 10-20 [facility] 26.0 mmol/L 21.0-32.0 [facility] Platelets bldOrdered By: Bart Linares on 02-02-2023 Platelets (Bld) [#/Vol] 299 10*3/uL 150-450 [facility] Serum or plasma calcium tai urement (mass/volume)Ordered By: Lizet Linares on 02-02-2023 Calcium [Mass/Vol] 8.0 mg/dL 8.5-10.[address] [facility] Serum or plasma creatinine m easurement (mass/volume)Ordered By: Lizet Linares on 02-02-2023 Creatinine [Mass/Vol] 1.11 mg/dL 0.55-1.02 [facility] Comment on above: The validity of the calculated GFR & GFRAA in patients over 70 years has not been determined. Clinical correlation is essential. Serum or plasma urea nitroge n measurement (mass/volume)Ordered By: Lizet Linares on 02-02-2023 Urea nitrogen [Mass/Vol] 32 mg/dL 7-18 [facility] Thin prep Papanicolaou smear with manual screeningOrdered By: Lizet Linares on 02-02-2023 Thin prep Papanicolaou smear with manual screening 7 5-15 [facility] Absolute lymphocyte countOrd ered By: ED PROVIDER on 01-29-2023 Lymphocytes Auto (Unsp spec) [#/Vol] 2.44 10*3/uL 0.83-4.51 [facility] Basophil percentageOrdered B y: ED PROVIDER on 01-29-2023 Basophil percentage 311 mg/dL 74-106 [facility] Basophil percentage 135 mmol/L 136-145 [facility] Basophil percentage 4.1 mmol/L 3.5-5.1 [facility] Basophil percentage 99 mmol/L 98-107 [facility] Basophils (Bld) [#/Vol] 12.0 10*3/uL 4.4-11.0 [facility] Basophils (Bld) [#/Vol] 9.0 10*3/uL 2.0-7.7 [facility] Basophils/100 WBC (Bld) 74.7 % 47-70 [facility] Basophils/100 WBC (Bld) 0.0 % 0-5 [facility] Basophils/100 WBC (Bld) 0.3 % 0-1 [facility] Chloride [Moles/Vol] 99 mmol/L 98-107 [facility] Eosinophils/100 WBC (Bld) 0.0 % 0-5 [facility] Glucose [Mass/Vol] 311 mg/dL 74-[address] [facility] Comment on above: Glucose result great er than or equal to 200 mg/dLsuggests DIABETES MELLITUS per A.D.A. criteria. Neutrophils (Bld) [#/Vol] 9.0 10*3/uL 2.0-7.7 [facility] Neutrophils/100 WBC (Bld) 74.7 % 47-70 [facility] Potassium [Moles/Vol] 4.1 mmol/L 3.5-5.1 [facility] Sodium [Moles/Vol] 135 mmol/L 136-[address] [facility] WBC (Bld) [#/Vol] 12.0 10*3/uL 4.4-11.0 [facility] Blood erythrocytes count (nu mber/volume)Ordered By: ED PROVIDER on 01-29-2023 RBC (Bld) [#/Vol] 4.25 10*6/uL 4.2-5.4 [facility] Blood hemoglobin measurement (mass/volume)Ordered By: ED PROVIDER on 01-29-2023 Hemoglobin (Bld) [Mass/Vol] 12.4 g/dL 12.0-15.0 [facility] Blood lymphocytes/100 leukoc ytesOrdered By: ED PROVIDER on 01-29-2023 Lymphocytes/100 WBC (Bld) 20.3 % 19-41 [facility] Blood monocytes/100 leukocyt esOrdered By: ED PROVIDER on 01-29-2023 Monocytes/100 WBC (Bld) 4.0 % 0-10 [facility] Blood platelet mean volumeOr dered By: ED PROVIDER on 01-29-2023 Platelet mean volume (Bld) [Entitic vol] 9.3 fL 6.2-12.0 [facility] Determination of erythrocyte mean corpuscular volume (MCV)Ordered By: ED PROVIDER on 01-29-2023 MCV (RBC) [Entitic vol] 89.2 fL 81-99 [facility] Hematocrit Auto (Bld) [Volum e fraction]Ordered By: ED PROVIDER on 01-29-2023 Hematocrit (Bld) [Volume fraction] 37.9 % 37-47 [facility] - Chemistry and C hemistry - challengeOrdered By: ED PROVIDER on 01-29-2023 CO2 [Moles/Vol] 28.0 mmol/L 21.0-32.0 [facility] Urea nitrogen/Creatinine [Mass ratio] 22.3 mg/mg 10-20 [facility] - Hematology and Cell countsOrdered By: ED PROVIDER on 01-29-2023 Erythrocyte distribution width (RBC) [Entitic vol] 43.1 fL 35.1-43.[address] [facility] Erythrocyte distribution width (RBC) [Ratio] 13.2 % 11.6-14.6 [facility] Immature granulocytes/100 WBC (Bld) 0.700 % 0.0-0.9 [facility] Comment on above: IG% - Immature Granu locytes (promyelocytes, myelocytes and metamyelocytes) > 1% indicates that a LEFT SHIFT is Present. MCH (RBC) [Entitic mass] 29.2 pg 27.0-32.0 [facility] Nucleated RBC/100 WBC (Bld) [Ratio] 0 % 0-5 [facility] MCHC Auto (RBC) [Mass/Vol]Or dered By: ED PROVIDER on 01-29-2023 MCHC (RBC) [Mass/Vol] 32.7 g/dL 32-36 [facility] No Panel InformationOrdered By: Dr. Dunn on 01-29-2023 Troponin I High Sensitivity 13 pg/mL 3.0-54.0 [facility] Comment on above: Please Note: New Carolann t Units and Gender Specific Reference Ranges. For more information see Policy Stat Procedure [place] High Sensitivity Troponin (TNIH) and attachments. 13 pg/mL 3.0-54.0 [facility] D-Dimer Quantitative (PE/DVT) 0.39 FEU/ug/m 0.27-0.49 [facility] Comment on above: NORMAL D-Dimer level (<0.50) indicates no DVT or PE. 0.39 FEU/ug/m 0.27-0.49 [facility] No Panel InformationOrdered By: ED PROVIDER on 01-29-2023 Estimated Creatinine Clearance Calc 38.85 ml/min [facility] Estimated GFR (MDRD) Amer 64 mL/min >60 [facility] Comment on above: GFR Calc Estimated GFR (MDRD) Non-Af Amer 53 mL/min >60 [facility] Comment on above: Non- GFR Calc 29.2 pg 27.0-32.0 [facility] 13.2 % 11.6-14.6 [facility] 43.1 fl 35.1-43.9 [facility] 0.700 % 0.0-0.9 [facility] 0 % 0-5 [facility] 53 mL/min >60 [facility] 64 mL/min >60 [facility] 38.85 ml/min [facility] 22.3 RATIO 10-20 [facility] 28.0 mmol/L 21.0-32.0 [facility] Platelets bldOrdered By: ED PROVIDER on 01-29-2023 Platelets (Bld) [#/Vol] 347 10*3/uL 150-450 [facility] Serum or plasma calcium tai urement (mass/volume)Ordered By: ED PROVIDER on 01-29-2023 Calcium [Mass/Vol] 9.3 mg/dL 8.5-10.[address] [facility] Serum or plasma creatinine m easurement (mass/volume)Ordered By: ED PROVIDER on 01-29-2023 Creatinine [Mass/Vol] 1.12 mg/dL 0.55-1.02 [facility] Comment on above: The validity of the calculated GFR & GFRAA in patients over 70 years has not been determined. Clinical correlation is essential. Serum or plasma urea nitroge n measurement (mass/volume)Ordered By: ED PROVIDER on 01-29-2023 Urea nitrogen [Mass/Vol] 25 mg/dL 7-18 [facility] Thin prep Papanicolaou smear with manual screeningOrdered By: ED PROVIDER on 01-29-2023 Thin prep Papanicolaou smear with manual screening 8 5-15 [facility] Basophil percentageOrdered B y: Ganesh Garcia on 01-19-2023 Basophil percentage 197 mg/dL 74-106 [facility] Basophil percentage 138 mmol/L 136-145 [facility] Basophil percentage 4.0 mmol/L 3.5-5.1 [facility] Basophil percentage 106 mmol/L 98-107 [facility] Basophils (Bld) [#/Vol] 6.4 10*3/uL 4.4-11.0 [facility] Chloride [Moles/Vol] 106 mmol/L 98-107 [facility] Glucose [Mass/Vol] 197 mg/dL 74-[address] [facility] Comment on above: Fasting Glucose resu lt greater than or equal to 126 mg/dL suggests DIABETES MELLITUS per A.D.A. criteria. Potassium [Moles/Vol] 4.0 mmol/L 3.5-5.1 [facility] Sodium [Moles/Vol] 138 mmol/L 136-[address] [facility] WBC (Bld) [#/Vol] 6.4 10*3/uL 4.4-11.[address] [facility] Blood erythrocytes count (nu mber/volume)Ordered By: Ganesh Garcia on 01-19-2023 RBC (Bld) [#/Vol] 3.58 10*6/uL 4.2-5.4 [facility] Blood hemoglobin measurement (mass/volume)Ordered By: Ganesh Garcia on 01-19-2023 Hemoglobin (Bld) [Mass/Vol] 10.4 g/dL 12.0-15.0 [facility] Blood platelet mean volumeOr dered By: Ganesh Garcia on 01-19-2023 Platelet mean volume (Bld) [Entitic vol] 9.9 fL 6.2-12.0 [facility] Determination of erythrocyte mean corpuscular volume (MCV)Ordered By: Ganesh Garcia on 01-19-2023 MCV (RBC) [Entitic vol] 92.5 fL 81-99 [facility] Hematocrit Auto (Bld) [Volum e fraction]Ordered By: Ganesh Garcia on 01-19-2023 Hematocrit (Bld) [Volume fraction] 33.1 % 37-47 [facility] - Chemistry and C hemistry - challengeOrdered By: Ganesh Garcia on 01-19-2023 CO2 [Moles/Vol] 27.0 mmol/L 21.0-32.0 [facility] Urea nitrogen/Creatinine [Mass ratio] 19.3 mg/mg 10-20 [facility] - Hematology and Cell countsOrdered By: Ganesh Garcia on 01-19-2023 Erythrocyte distribution width (RBC) [Entitic vol] 46.8 fL 35.1-43.[address] [facility] Erythrocyte distribution width (RBC) [Ratio] 13.6 % 11.6-14.6 [facility] MCH (RBC) [Entitic mass] 29.1 pg 27.0-32.0 [facility] MCHC Auto (RBC) [Mass/Vol]Or dered By: Ganesh Garcia on 01-19-2023 MCHC (RBC) [Mass/Vol] 31.4 g/dL 32-36 [facility] No Panel InformationOrdered By: Ganesh Garcia on 01-19-2023 Estimated GFR (MDRD) Amer 74 mL/min >60 [facility] Comment on above: GFR Calc Estimated GFR (MDRD) Non-Af Amer 61 mL/min >60 [facility] Comment on above: Non- GFR Calc 29.1 pg 27.0-32.0 [facility] 13.6 % 11.6-14.6 [facility] 46.8 fl 35.1-43.9 [facility] 61 mL/min >60 [facility] 74 mL/min >60 [facility] 19.3 RATIO 10-20 [facility] 27.0 mmol/L 21.0-32.0 [facility] Platelets bldOrdered By: Robert Garcia on 01-19-2023 Platelets (Bld) [#/Vol] 285 10*3/uL 150-450 [facility] Serum or plasma calcium tai urement (mass/volume)Ordered By: Ganesh Garcia on 01-19-2023 Calcium [Mass/Vol] 8.7 mg/dL 8.5-10.[address] [facility] Serum or plasma creatinine m easurement (mass/volume)Ordered By: Ganesh Garcia on 01-19-2023 Creatinine [Mass/Vol] 0.98 mg/dL 0.55-1.02 [facility] Comment on above: The validity of the calculated GFR & GFRAA in patients over 70 years has not been determined. Clinical correlation is essential. Serum or plasma urea nitroge n measurement (mass/volume)Ordered By: Ganesh Garcia on 01-19-2023 Urea nitrogen [Mass/Vol] 19 mg/dL 7-18 [facility] Thin prep Papanicolaou smear with manual screeningOrdered By: Ganesh Garcia on 01-19-2023 Thin prep Papanicolaou smear with manual screening 5 5-15 [facility] Basophil percentageOrdered B y: Ganesh Garcia on 01-18-2023 Basophil percentage 103 mg/dL <200 [facility] Basophil percentage 325 mg/dL <199 [facility] Cholesterol [Mass/Vol] 103 mg/dL <200 [facility] Comment on above: <200 mg/dL Desirable 200-240 mg/dL Borderline >240 mg/dL High Risk Triglyceride [Mass/Vol] 325 mg/dL <199 [facility] Comment on above: The drugs N-Acetylcy steine and Metamizole may falsely depress this assay.Serum Triglycerides Reference Interval Normal <150 mg/dL Borderline high 150 - 199 mg/dL High 200 - 499 mg/dL Very High > or = 500 mg/dL Serum or plasma cholesterol in HDL measurement (mass/volume)Ordered By: Ganesh Garcia on 01-18-2023 Cholesterol in HDL [Mass/Vol] 23 mg/dL >40 [facility] Comment on above: The drugs N-Acetylcy steine and Metamizole may falsely depress this assay. Reference Range HDL <40 mg/dL Low HDL Cholesterol HDL >or= 60 mg/dL High HDL Cholesterol Serum or plasma cholesterol in VLDL measurement (mass/volume)Ordered By: Ganesh Garcia on 01-18-2023 Cholesterol in VLDL [Mass/Vol] 65 mg/dL 5-40 [facility] Serum or plasma low density lipoprotein (LDL) cholesterol measurement (mass/volume)Ordered By: Ganesh Garcia on 01-18-2023 Cholesterol in LDL [Mass/Vol] 15 mg/dL 0-130 [facility] Absolute lymphocyte countOrd ered By: Dr. Govea on 01-06-2023 Lymphocytes Auto (Unsp spec) [#/Vol] 2.51 10*3/uL 0.83-4.51 [facility] Basophil percentageOrdered B y: Dr. Govea on 01-06-2023 Basophil percentage 0 SEEN /hpf 0-5 [facility] Basophil percentage 170 mg/dL 74-106 [facility] Basophil percentage 139 mmol/L 136-145 [facility] Basophil percentage 4.6 mmol/L 3.5-5.1 [facility] Basophil percentage 103 mmol/L 98-107 [facility] Basophils (Bld) [#/Vol] 6.5 10*3/uL 4.4-11.0 [facility] Basophils (Bld) [#/Vol] 3.4 10*3/uL 2.0-7.7 [facility] Basophils/100 WBC (Bld) 53.1 % 47-70 [facility] Basophils/100 WBC (Bld) 1.7 % 0-5 [facility] Basophils/100 WBC (Bld) 0.5 % 0-1 [facility] Chloride [Moles/Vol] 103 mmol/L 98-107 [facility] Eosinophils/100 WBC (Bld) 1.7 % 0-5 [facility] Glucose [Mass/Vol] 170 mg/dL 74-[address] [facility] Comment on above: Fasting Glucose resu lt greater than or equal to 126 mg/dL suggests DIABETES MELLITUS per A.D.A. criteria. Neutrophils (Bld) [#/Vol] 3.4 10*3/uL 2.0-7.7 [facility] Neutrophils/100 WBC (Bld) 53.1 % 47-70 [facility] Potassium [Moles/Vol] 4.6 mmol/L 3.5-5.1 [facility] Sodium [Moles/Vol] 139 mmol/L 136-[address] [facility] WBC (Bld) [#/Vol] 6.5 10*3/uL 4.4-11.[address] [facility] Bilirubin Test strip Ql (U)O rdered By: Dr. Govea on 01-06-2023 Bilirubin Ql (U) Negative Negative [facility] Blood erythrocytes count (nu mber/volume)Ordered By: Dr. Govea on 01-06-2023 RBC (Bld) [#/Vol] 4.01 10*6/uL 4.2-5.4 [facility] [facility] measurement (mass/volume)Ordered By: Dr. Govea on 01-06-2023 Hemoglobin (Bld) [Mass/Vol] 11.6 g/dL 12.0-15.0 [facility] Blood lymphocytes/100 leukoc ytesOrdered By: Dr. Govea on 01-06-2023 Lymphocytes/100 WBC (Bld) 38.7 % 19-41 [facility] Blood monocytes/100 leukocyt esOrdered By: Dr. Govea on 01-06-2023 Monocytes/100 WBC (Bld) 5.7 % 0-10 [facility] Blood platelet mean volumeOr dered By: Dr. Govea on 01-06-2023 Platelet mean volume (Bld) [Entitic vol] 9.1 fL 6.2-12.0 [facility] Determination of erythrocyte mean corpuscular volume (MCV)Ordered By: Dr. Govea on 01-06-2023 MCV (RBC) [Entitic vol] 90.8 fL 81-99 [facility] Hematocrit Auto (Bld) [Volum e fraction]Ordered By: Dr. Govea on 01-06-2023 Hematocrit (Bld) [Volume fraction] 36.4 % 37-47 [facility] Ketones Test strip Ql (U)Ord ered By: Dr. Govea on 01-06-2023 Ketones Ql (U) Negative Negative [facility] Laboratory - Chemistry and C hemistry - challengeOrdered By: Dr. Govea on 01-06-2023 CO2 [Moles/Vol] 28.0 mmol/L 21.0-32.0 [facility] Urea nitrogen/Creatinine [Mass ratio] 23.6 mg/mg 10-20 [facility] Laboratory - Hematology and Cell countsOrdered By: Dr. Govea on 01-06-2023 Erythrocyte distribution width (RBC) [Entitic vol] 44.8 fL 35.1-43.[address] [facility] Erythrocyte distribution width (RBC) [Ratio] 13.6 % 11.6-14.6 [facility] Immature granulocytes/100 WBC (Bld) 0.300 % 0.0-0.9 [facility] Comment on above: IG% - Immature Granu locytes (promyelocytes, myelocytes and metamyelocytes) > 1% indicates that a LEFT SHIFT is Present. MCH (RBC) [Entitic mass] 28.9 pg 27.0-32.0 [facility] Nucleated RBC/100 WBC (Bld) [Ratio] 0 % 0-5 [facility] MCHC Auto (RBC) [Mass/Vol]Or dered By: Dr. Govea on 01-06-2023 MCHC (RBC) [Mass/Vol] 31.9 g/dL 32-36 [facility] Mucus LM Ql (Urine sed)Order ed By: Dr. Govea on 01-06-2023 Mucus Ql (Urine sed) 0 SEEN /hpf [facility] Nitrite Test strip Ql (U)Ord ered By: Dr. Govea on 01-06-2023 Nitrite Ql (U) Negative Negative [facility] No Panel InformationOrdered By: Dr. Govea on 01-06-2023 Estimated Creatinine Clearance Calc 46.78 ml/min [facility] Estimated GFR (MDRD) Amer 79 mL/min >60 [facility] Comment on above: GFR Calc Estimated GFR (MDRD) Non-Af Amer 65 mL/min >60 [facility] Comment on above: Non- GFR Calc 28.9 pg 27.0-32.0 [facility] 13.6 % 11.6-14.6 [facility] 44.8 fl 35.1-43.9 [facility] 0.300 % 0.0-0.9 [facility] 0 % 0-5 [facility] 65 mL/min >60 [facility] 79 mL/min >60 [facility] 46.78 ml/min [facility] 23.6 RATIO 10-20 [facility] 28.0 mmol/L 21.0-32.0 [facility] Platelets bldOrdered By: Dr. Govea on 01-06-2023 Platelets (Bld) [#/Vol] 295 10*3/uL 150-450 [facility] Protein Test strip Ql (U)Ord ered By: Dr. Govea on 01-06-2023 Protein Ql (U) Negative Negative [facility] Serum or plasma calcium tai urement (mass/volume)Ordered By: Dr. Govea on 01-06-2023 Calcium [Mass/Vol] 9.2 mg/dL 8.5-10.[address] [facility] Serum or plasma creatinine m easurement (mass/volume)Ordered By: Dr. Govea on 01-06-2023 Creatinine [Mass/Vol] 0.93 mg/dL 0.55-1.02 [facility] Comment on above: The validity of the calculated GFR & GFRAA in patients over 70 years has not been determined. Clinical correlation is essential. Serum or plasma urea nitroge n measurement (mass/volume)Ordered By: Dr. Govea on 01-06-2023 Urea nitrogen [Mass/Vol] 22 mg/dL 7-18 [facility] Squamous epithelial cells de tection in urine sediment by light microscopyOrdered By: Dr. Govea on 01-06-2023 Epithelial cells.squamous LM Ql (Urine sed) 0 SEEN /hpf 5-10 [facility] Thin prep Papanicolaou smear with manual screeningOrdered By: Dr. Govea on 01-06-2023 Thin prep Papanicolaou smear with manual screening 8 5- [facility] Urine blood detectionOrdered By: Dr. Govea on 01-06-2023 RBC Ql (U) Negative Negative [facility] RBC Ql (U) 0 SEEN /hpf 0-5 [facility] Urine clarityOrdered By: Dr. Govea on 01-06-2023 Clarity (U) Clear Clear [facility] Urine color determinationOrd ered By: Dr. Govea on 01-06-2023 Color (U) Yellow Yellow [facility] Urine glucose detectionOrder ed By: Dr. Govea on 01-06-2023 Glucose Ql (U) Normal mg/dl Normal [facility] Urine leukocyte esterase det ection by dipstickOrdered By: Dr. Govea on 01-06-2023 Leukocyte esterase Test strip Ql (U) Negative Negative [facility] Urine pHOrdered By: Dr. Jovanni butler on 01-06-2023 pH (U) 7.0 [pH] 5.0 - 8.0 [facility] Urine sediment bacteria coun t by microscopy (number/high power field)Ordered By: Dr. Govea on 01-06-2023 Bacteria LM.HPF (Urine sed) [#/Area] 0 /[HPF] None Seen [facility] Urine specific gravity measu rementOrdered By: Dr. Govea on 01-06-2023 Specific gravity (U) [Rel density] 1.010 1.002-1.03 0 [facility] Urobilinogen Auto test strip Ql (U)Ordered By: Dr. Govea on 01-06-2023 Urobilinogen Ql (U) Normal mg/dl Normal [facility] Basophil percentageOrdered B y: Ganesh Garcia on 01-05-2023 Basophil percentage 175 mg/dL 74-106 [facility] Basophil percentage 140 mmol/L 136-145 [facility] Basophil percentage 4.1 mmol/L 3.5-5.1 [facility] Basophil percentage 104 mmol/L 98-107 [facility] Basophils (Bld) [#/Vol] 7.1 10*3/uL 4.4-11.0 [facility] Chloride [Moles/Vol] 104 mmol/L 98-107 [facility] Glucose [Mass/Vol] 175 mg/dL 74-[address] [facility] Comment on above: Fasting Glucose resu lt greater than or equal to 126 mg/dL suggests DIABETES MELLITUS per A.D.A. criteria. Potassium [Moles/Vol] 4.1 mmol/L 3.5-5.1 [facility] Sodium [Moles/Vol] 140 mmol/L 136-[address] [facility] WBC (Bld) [#/Vol] 7.1 10*3/uL 4.4-11.[address] [facility] Blood erythrocytes count (nu mber/volume)Ordered By: Ganesh Garcia on 01-05-2023 RBC (Bld) [#/Vol] 3.70 10*6/uL 4.2-5.4 [facility] Blood hemoglobin measurement (mass/volume)Ordered By: Ganesh Garcia on 01-05-2023 Hemoglobin (Bld) [Mass/Vol] 11.0 g/dL 12.0-15.0 [facility] Blood platelet mean volumeOr dered By: Ganesh Garcia on 01-05-2023 Platelet mean volume (Bld) [Entitic vol] 9.1 fL 6.2-12.0 [facility] Determination of erythrocyte mean corpuscular volume (MCV)Ordered By: Ganesh Garcia on 01-05-2023 MCV (RBC) [Entitic vol] 91.9 fL 81-99 [facility] Hematocrit Auto (Bld) [Volum e fraction]Ordered By: Ganesh Garcia on 01-05-2023 Hematocrit (Bld) [Volume fraction] 34.0 % 37-47 [facility] Laboratory - Chemistry and C hemistry - challengeOrdered By: Ganesh Garcia on 01-05-2023 CO2 [Moles/Vol] 28.0 mmol/L 21.0-32.0 [facility] Urea nitrogen/Creatinine [Mass ratio] 21.5 mg/mg 10-20 [facility] - Hematology and Cell countsOrdered By: Ganesh Garcia on 01-05-2023 Erythrocyte distribution width (RBC) [Entitic vol] 46.1 fL 35.1-43.[address] [facility] Erythrocyte distribution width (RBC) [Ratio] 13.9 % 11.6-14.6 [facility] MCH (RBC) [Entitic mass] 29.7 pg 27.0-32.0 [facility] MCHC Auto (RBC) [Mass/Vol]Or dered By: Ganesh Garcia on 01-05-2023 MCHC (RBC) [Mass/Vol] 32.4 g/dL 32-36 [facility] No Panel InformationOrdered By: Ganesh Garcia on 01-05-2023 Estimated GFR (MDRD) Amer 75 mL/min >60 [facility] Comment on above: GFR Calc Estimated GFR (MDRD) Non-Af Amer 62 mL/min >60 [facility] Comment on above: Non- GFR Calc 29.7 pg 27.0-32.0 [facility] 13.9 % 11.6-14.6 [facility] 46.1 fl 35.1-43.9 [facility] 62 mL/min >60 [facility] 75 mL/min >60 [facility] 21.5 RATIO 10-20 [facility] 28.0 mmol/L 21.0-32.0 [facility] Platelets bldOrdered By: Robert Garcia on 01-05-2023 Platelets (Bld) [#/Vol] 299 10*3/uL 150-450 [facility] Serum or plasma calcium tai urement (mass/volume)Ordered By: Ganesh Garcia on 01-05-2023 Calcium [Mass/Vol] 9.0 mg/dL 8.5-10.[address] [facility] Serum or plasma creatinine m easurement (mass/volume)Ordered By: Ganesh Garcia on 01-05-2023 Creatinine [Mass/Vol] 0.98 mg/dL 0.55-1.02 [facility] Comment on above: The validity of the calculated GFR & GFRAA in patients over 70 years has not been determined. Clinical correlation is essential. Serum or plasma urea nitroge n measurement (mass/volume)Ordered By: Ganesh Garcia on 01-05-2023 Urea nitrogen [Mass/Vol] 21 mg/dL 7-18 [facility] Thin prep Papanicolaou smear with manual screeningOrdered By: Ganesh Garcia on 01-05-2023 Thin prep Papanicolaou smear with manual screening 8 5-15 [facility] Basophil percentageOrdered B y: Lizet Linares on 12-28-2022 Basophil percentage 310 mg/dL 74-106 [facility] Basophil percentage 137 mmol/L 136-145 [facility] Basophil percentage 3.8 mmol/L 3.5-5.1 [facility] Basophil percentage 103 mmol/L 98-107 [facility] Chloride [Moles/Vol] 103 mmol/L 98-107 [facility] Glucose [Mass/Vol] 310 mg/dL 74-[address] [facility] Comment on above: Glucose result great er than or equal to 200 mg/dLsuggests DIABETES MELLITUS per A.D.A. criteria. Potassium [Moles/Vol] 3.8 mmol/L 3.5-5.1 [facility] Sodium [Moles/Vol] 137 mmol/L 136-[address] [facility] Laboratory - Chemistry and C hemistry - challengeOrdered By: Lizet Linares on 12-28-2022 CO2 [Moles/Vol] 26.0 mmol/L 21.0-32.0 [facility] Urea nitrogen/Creatinine [Mass ratio] 20.3 mg/mg 10- [facility] No Panel InformationOrdered By: Lizet Linares on 12-28-2022 Estimated GFR (MDRD) Amer 74 mL/min >60 [facility] Comment on above: GFR Calc Estimated GFR (MDRD) Non-Af Amer 61 mL/min >60 [facility] Comment on above: Non- GFR Calc 61 mL/min >60 [facility] 74 mL/min >60 [facility] 20.3 RATIO 08-13 [facility] 26.0 mmol/L 21.0-32.0 [facility] Serum or plasma calcium tai urement (mass/volume)Ordered By: Lizet Linares on 12-28-2022 Calcium [Mass/Vol] 8.7 mg/dL 8.5-10.[address] [facility] Serum or plasma creatinine m easurement (mass/volume)Ordered By: Lizet Linares on 12-28-2022 Creatinine [Mass/Vol] 0.99 mg/dL 0.55-1.02 [facility] Comment on above: The validity of the calculated GFR & GFRAA in patients over 70 years has not been determined. Clinical correlation is essential. Serum or plasma urea nitroge n measurement (mass/volume)Ordered By: Lizet Linares on 12-28-2022 Urea nitrogen [Mass/Vol] 20 mg/dL 7-18 [facility] Thin prep Papanicolaou smear with manual screeningOrdered By: Lizet Linares on 12-28-2022 Thin prep Papanicolaou smear with manual screening 8 5-15 [facility] No Panel InformationOrdered By: Lizet Linares on 12-23-2022 Thyroid Stimulating Hormone (TSH) 0.40 uIU/mL 0.358-3.74 [facility] 0.40 uIU/mL 0.358-3.74 [facility] Whole blood hemoglobin A1c/t otal hemoglobin ratio (mass fraction)Ordered By: Lizet Linares on 12-23-2022 HbA1c (Bld) [Mass fraction] 7.9 % 3.8-5.6 [facility] Comment on above: Normal < 5.7 % Predi abetic 5.7 - 6.4 % Diabetic >or= 6.5 % Please note range changes. Basophil percentageOrdered B y: Lizet Linares on 12-22-2022 Basophil percentage 169 mg/dL 74-106 [facility] Basophil percentage 138 mmol/L 136-145 [facility] Basophil percentage 3.9 mmol/L 3.5-5.1 [facility] Basophil percentage 104 mmol/L 98-107 [facility] Basophils (Bld) [#/Vol] 7.4 10*3/uL 4.4-11.0 [facility] Chloride [Moles/Vol] 104 mmol/L 98-107 [facility] Glucose [Mass/Vol] 169 mg/dL 74-[address] [facility] Comment on above: Fasting Glucose resu lt greater than or equal to 126 mg/dL suggests DIABETES MELLITUS per A.D.A. criteria. Potassium [Moles/Vol] 3.9 mmol/L 3.5-5.1 [facility] Sodium [Moles/Vol] 138 mmol/L 136-[address] [facility] WBC (Bld) [#/Vol] 7.4 10*3/uL 4.4-11.[address] [facility] Blood erythrocytes count (nu mber/volume)Ordered By: Lizet Linares on 12-22-2022 RBC (Bld) [#/Vol] 3.75 10*6/uL 4.2-5.4 [facility] Blood hemoglobin measurement (mass/volume)Ordered By: Lizet Linares on 12-22-2022 Hemoglobin (Bld) [Mass/Vol] 10.6 g/dL 12.0-15.0 [facility] Blood platelet mean volumeOr dered By: Lizet Linares on 12-22-2022 Platelet mean volume (Bld) [Entitic vol] 9.7 fL 6.2-12.0 [facility] Determination of erythrocyte mean corpuscular volume (MCV)Ordered By: Lizet Linares on 12-22-2022 MCV (RBC) [Entitic vol] 92.0 fL 81-99 [facility] Hematocrit Auto (Bld) [Volum e fraction]Ordered By: Lizet Linares on 12-22-2022 Hematocrit (Bld) [Volume fraction] 34.5 % 37-47 [facility] Laboratory - Chemistry and C hemistry - challengeOrdered By: Lizet Linares on 12-22-2022 CO2 [Moles/Vol] 26.0 mmol/L 21.0-32.0 [facility] Urea nitrogen/Creatinine [Mass ratio] 23.8 mg/mg 10-20 [facility] - Hematology and Cell countsOrdered By: Lizet Linares on 12-22-2022 Erythrocyte distribution width (RBC) [Entitic vol] 44.8 fL 35.1-43.[address] [facility] Erythrocyte distribution width (RBC) [Ratio] 13.4 % 11.6-14.6 [facility] MCH (RBC) [Entitic mass] 28.3 pg 27.0-32.0 [facility] MCHC Auto (RBC) [Mass/Vol]Or dered By: Lizet Linares on 12-22-2022 MCHC (RBC) [Mass/Vol] 30.7 g/dL 32-36 [facility] No Panel InformationOrdered By: Lizet Linares on 12-22-2022 Estimated GFR (MDRD) Amer 72 mL/min >60 [facility] Comment on above: GFR Calc Estimated GFR (MDRD) Non-Af Amer 60 mL/min >60 [facility] Comment on above: Non- GFR Calc 28.3 pg 27.0-32.0 [facility] 13.4 % 11.6-14.6 [facility] 44.8 fl 35.1-43.9 [facility] 60 mL/min >60 [facility] 72 mL/min >60 [facility] 23.8 RATIO 10-20 [facility] 26.0 mmol/L 21.0-32.0 [facility] Platelets bldOrdered By: Bart Linares on 12-22-2022 Platelets (Bld) [#/Vol] 293 10*3/uL 150-450 [facility] Serum or plasma calcium tai urement (mass/volume)Ordered By: Lizet Linares on 12-22-2022 Calcium [Mass/Vol] 8.8 mg/dL 8.5-10.[address] [facility] Serum or plasma creatinine m easurement (mass/volume)Ordered By: Lizet Linares on 12-22-2022 Creatinine [Mass/Vol] 1.01 mg/dL 0.55-1.02 [facility] Comment on above: The validity of the calculated GFR & GFRAA in patients over 70 years has not been determined. Clinical correlation is essential. Serum or plasma urea nitroge n measurement (mass/volume)Ordered By: Lizet Linares on 12-22-2022 Urea nitrogen [Mass/Vol] 24 mg/dL 7-18 [facility] Thin prep Papanicolaou smear with manual screeningOrdered By: Lizet Linares on 12-22-2022 Thin prep Papanicolaou smear with manual screening 8 5-15 [facility] Basophil percentageOrdered B y: Lizet Linares on 12-14-2022 Basophil percentage 170 mg/dL 74-106 [facility] Basophil percentage 139 mmol/L 136-145 [facility] Basophil percentage 4.1 mmol/L 3.5-5.1 [facility] Basophil percentage 104 mmol/L 98-107 [facility] Chloride [Moles/Vol] 104 mmol/L 98-107 [facility] Glucose [Mass/Vol] 170 mg/dL 74-[address] [facility] Comment on above: Fasting Glucose resu lt greater than or equal to 126 mg/dL suggests DIABETES MELLITUS per A.D.A. criteria. Potassium [Moles/Vol] 4.1 mmol/L 3.5-5.1 [facility] Sodium [Moles/Vol] 139 mmol/L 136-[address] [facility] Laboratory - Chemistry and C hemistry - challengeOrdered By: Lizet Linares on 12-14-2022 CO2 [Moles/Vol] 27.0 mmol/L 21.0-32.0 [facility] Urea nitrogen/Creatinine [Mass ratio] 24.8 mg/mg 08-13 [facility] No Panel InformationOrdered By: Lizet Linares on 12-14-2022 Estimated GFR (MDRD) Amer 72 mL/min >60 [facility] Comment on above: GFR Calc Estimated GFR (MDRD) Non-Af Amer 60 mL/min >60 [facility] Comment on above: Non- GFR Calc 60 mL/min >60 [facility] 72 mL/min >60 [facility] 24.8 RATIO 08-13 [facility] 27.0 mmol/L 21.0-32.0 [facility] Serum or plasma calcium tai urement (mass/volume)Ordered By: Lizet Linares on 12-14-2022 Calcium [Mass/Vol] 9.0 mg/dL 8.5-10.[address] [facility] Serum or plasma creatinine m easurement (mass/volume)Ordered By: Lizet Linares on 12-14-2022 Creatinine [Mass/Vol] 1.01 mg/dL 0.55-1.02 [facility] Comment on above: The validity of the calculated GFR & GFRAA in patients over 70 years has not been determined. Clinical correlation is essential. Serum or plasma urea nitroge n measurement (mass/volume)Ordered By: Lizet Linares on 12-14-2022 Urea nitrogen [Mass/Vol] 25 mg/dL 7-18 [facility] Thin prep Papanicolaou smear with manual screeningOrdered By: Lizet Linares on 12-14-2022 Thin prep Papanicolaou smear with manual screening 8 5-15 [facility] Basophil percentageOrdered B y: Lizet Linares on 12-08-2022 Basophil percentage 107 mg/dL 74-106 [facility] Basophil percentage 141 mmol/L 136-145 [facility] Basophil percentage 4.5 mmol/L 3.5-5.1 [facility] Basophil percentage 108 mmol/L 98-107 [facility] Basophils (Bld) [#/Vol] 6.6 10*3/uL 4.4-11.0 [facility] Chloride [Moles/Vol] 108 mmol/L 98-107 [facility] Glucose [Mass/Vol] 107 mg/dL 74-[address] [facility] Comment on above: Fasting Glucose resu lt from 100 to 125 mg/dL suggests IMPAIRED HOMEOSTASIS per A.D.A. criteria. Potassium [Moles/Vol] 4.5 mmol/L 3.5-5.1 [facility] Sodium [Moles/Vol] 141 mmol/L 136-[address] [facility] WBC (Bld) [#/Vol] 6.6 10*3/uL 4.4-11.[address] [facility] Blood erythrocytes count (nu mber/volume)Ordered By: Lizet Linares on 12-08-2022 RBC (Bld) [#/Vol] 3.93 10*6/uL 4.2-5.4 [facility] Blood hemoglobin measurement (mass/volume)Ordered By: Lizet Linares on 12-08-2022 Hemoglobin (Bld) [Mass/Vol] 11.3 g/dL 12.0-15.0 [facility] Blood platelet mean volumeOr dered By: Lizet Linares on 12-08-2022 Platelet mean volume (Bld) [Entitic vol] 9.7 fL 6.2-12.0 [facility] Determination of erythrocyte mean corpuscular volume (MCV)Ordered By: Lizet Linares on 12-08-2022 MCV (RBC) [Entitic vol] 90.8 fL 81-99 [facility] Hematocrit Auto (Bld) [Volum e fraction]Ordered By: Lizet Linares on 12-08-2022 Hematocrit (Bld) [Volume fraction] 35.7 % 37-47 [facility] Laboratory - Chemistry and C hemistry - challengeOrdered By: Lizet Linares on 12-08-2022 CO2 [Moles/Vol] 25.0 mmol/L 21.0-32.0 [facility] Urea nitrogen/Creatinine [Mass ratio] 26.2 mg/mg 10- [facility] - Hematology and Cell countsOrdered By: Lizet Linares on 12-08-2022 Erythrocyte distribution width (RBC) [Entitic vol] 45.8 fL 35.1-43.[address] [facility] Erythrocyte distribution width (RBC) [Ratio] 13.8 % 11.6-14.6 [facility] MCH (RBC) [Entitic mass] 28.8 pg 27.0-32.0 [facility] MCHC Auto (RBC) [Mass/Vol]Or dered By: Lizet Linares on 12-08-2022 MCHC (RBC) [Mass/Vol] 31.7 g/dL 32-36 [facility] No Panel InformationOrdered By: Lizet Linares on 12-08-2022 Estimated GFR (MDRD) Amer 77 mL/min >60 [facility] Comment on above: GFR Calc Estimated GFR (MDRD) Non-Af Amer 64 mL/min >60 [facility] Comment on above: Non- GFR Calc 28.8 pg 27.0-32.0 [facility] 13.8 % 11.6-14.6 [facility] 45.8 fl 35.1-43.9 [facility] 64 mL/min >60 [facility] 77 mL/min >60 [facility] 26.2 RATIO 08-13 [facility] 25.0 mmol/L 21.0-32.0 [facility] Platelets bldOrdered By: Bart Linares on 12-08-2022 Platelets (Bld) [#/Vol] 287 10*3/uL 150-450 [facility] Serum or plasma calcium tai urement (mass/volume)Ordered By: Lizet Linares on 12-08-2022 Calcium [Mass/Vol] 9.0 mg/dL 8.5-10.[address] [facility] Serum or plasma creatinine m easurement (mass/volume)Ordered By: Lizet Linares on 12-08-2022 Creatinine [Mass/Vol] 0.95 mg/dL 0.55-1.02 [facility] Comment on above: The validity of the calculated GFR & GFRAA in patients over 70 years has not been determined. Clinical correlation is essential. Serum or plasma urea nitroge n measurement (mass/volume)Ordered By: Lizet Linares on 12-08-2022 Urea nitrogen [Mass/Vol] 25 mg/dL 7-18 [facility] Thin prep Papanicolaou smear with manual screeningOrdered By: Lizet Linares on 12-08-2022 Thin prep Papanicolaou smear with manual screening 8 5-15 [facility] Basophil percentageOrdered B y: Lziet Linares on 11-24-2022 Basophil percentage 208 mg/dL 74-106 [facility] Basophil percentage 141 mmol/L 136-145 [facility] Basophil percentage 4.2 mmol/L 3.5-5.1 [facility] Basophil percentage 108 mmol/L 98-107 [facility] Basophils (Bld) [#/Vol] 6.2 10*3/uL 4.4-11.0 [facility] Chloride [Moles/Vol] 108 mmol/L 98-107 [facility] Glucose [Mass/Vol] 208 mg/dL 74-[address] [facility] Comment on above: Glucose result great er than or equal to 200 mg/dLsuggests DIABETES MELLITUS per A.D.A. criteria. Potassium [Moles/Vol] 4.2 mmol/L 3.5-5.1 [facility] Sodium [Moles/Vol] 141 mmol/L 136-[address] [facility] WBC (Bld) [#/Vol] 6.2 10*3/uL 4.4-11.[address] [facility] Blood erythrocytes count (nu mber/volume)Ordered By: Lizet iLnares on 11-24-2022 RBC (Bld) [#/Vol] 3.94 10*6/uL 4.2-5.4 [facility] Blood hemoglobin measurement (mass/volume)Ordered By: Lizet Linares on 11-24-2022 Hemoglobin (Bld) [Mass/Vol] 11.0 g/dL 12.0-15.0 [facility] Blood platelet mean volumeOr dered By: Lizet Linares on 11-24-2022 Platelet mean volume (Bld) [Entitic vol] 10.0 fL 6.2-12.0 [facility] Determination of erythrocyte mean corpuscular volume (MCV)Ordered By: Lizet Linares on 11-24-2022 MCV (RBC) [Entitic vol] 90.9 fL 81-99 [facility] Hematocrit Auto (Bld) [Volum e fraction]Ordered By: Lizet Linares on 11-24-2022 Hematocrit (Bld) [Volume fraction] 35.8 % 37-47 [facility] Laboratory - Chemistry and C hemistry - challengeOrdered By: christaerminenatasha Linares on 11-24-2022 CO2 [Moles/Vol] 26.0 mmol/L 21.0-32.0 [facility] Urea nitrogen/Creatinine [Mass ratio] 17.6 mg/mg 10-20 [facility] Laboratory - Hematology and Cell countsOrdered By: Lizet Linares on 11-24-2022 Erythrocyte distribution width (RBC) [Entitic vol] 46.9 fL 35.1-43.[address] [facility] Erythrocyte distribution width (RBC) [Ratio] 14.0 % 11.6-14.6 [facility] MCH (RBC) [Entitic mass] 27.9 pg 27.0-32.0 [facility] MCHC Auto (RBC) [Mass/Vol]Or dered By: Lizet Linares on 11-24-2022 MCHC (RBC) [Mass/Vol] 30.7 g/dL 32-36 [facility] No Panel InformationOrdered By: Lizet Linares on 01-31-2023 Estimated GFR (MDRD) Amer 71 mL/min >60 [facility] Comment on above: GFR Calc Estimated GFR (MDRD) Non-Af Amer 59 mL/min >60 [facility] Comment on above: Non- GFR Calc 27.9 pg 27.0-32.0 [facility] 14.0 % 11.6-14.6 [facility] 46.9 fl 35.1-43.9 [facility] 59 mL/min >60 [facility] 71 mL/min >60 [facility] 17.6 RATIO 10-20 [facility] 26.0 mmol/L 21.0-32.0 [facility] Platelets bldOrdered By: Bart Linares on 11-24-2022 Platelets (Bld) [#/Vol] 270 10*3/uL 150-450 [facility] Serum or plasma calcium tai urement (mass/volume)Ordered By: Lizet Linares on 11-24-2022 Calcium [Mass/Vol] 8.7 mg/dL 8.5-10.[address] [facility] Serum or plasma creatinine m easurement (mass/volume)Ordered By: Lizet Linares on 11-24-2022 Creatinine [Mass/Vol] 1.02 mg/dL 0.55-1.02 [facility] Comment on above: The validity of the calculated GFR & GFRAA in patients over 70 years has not been determined. Clinical correlation is essential. Serum or plasma urea nitroge n measurement (mass/volume)Ordered By: Lizet Linares on 11-24-2022 Urea nitrogen [Mass/Vol] 18 mg/dL 7-18 [facility] Thin prep Papanicolaou smear with manual screeningOrdered By: Lizet Linares on 11-24-2022 Thin prep Papanicolaou smear with manual screening 7 5-15 [facility] Basophil percentageOrdered B y: Lizet Linares on 11-10-2022 Basophil percentage 189 mg/dL 74-106 [facility] Basophil percentage 136 mmol/L 136-145 [facility] Basophil percentage 4.4 mmol/L 3.5-5.1 [facility] Basophil percentage 101 mmol/L 98-107 [facility] Basophils (Bld) [#/Vol] 7.5 10*3/uL 4.4-11.0 [facility] Chloride [Moles/Vol] 101 mmol/L 98-107 [facility] Glucose [Mass/Vol] 189 mg/dL 74-[address] [facility] Comment on above: Fasting Glucose resu lt greater than or equal to 126 mg/dL suggests DIABETES MELLITUS per A.D.A. criteria. Potassium [Moles/Vol] 4.4 mmol/L 3.5-5.1 [facility] Comment on above: Slight Hemolysis, Re sult may be falsely increased. Sodium [Moles/Vol] 136 mmol/L 136-[address] [facility] WBC (Bld) [#/Vol] 7.5 10*3/uL 4.4-11.[address] [facility] Blood erythrocytes count (nu mber/volume)Ordered By: Lizet Linares on 11-10-2022 RBC (Bld) [#/Vol] 4.02 10*6/uL 4.2-5.4 [facility] Blood hemoglobin measurement (mass/volume)Ordered By: Lizet Linares on 11-10-2022 Hemoglobin (Bld) [Mass/Vol] 11.6 g/dL 12.0-15.0 [facility] Blood platelet mean volumeOr dered By: Lizet Linares on 11-10-2022 Platelet mean volume (Bld) [Entitic vol] 10.0 fL 6.2-12.0 [facility] Determination of erythrocyte mean corpuscular volume (MCV)Ordered By: Lizet Linares on 11-10-2022 MCV (RBC) [Entitic vol] 88.1 fL 81-99 [facility] Hematocrit Auto (Bld) [Volum e fraction]Ordered By: Lizet Linares on 11-10-2022 Hematocrit (Bld) [Volume fraction] 35.4 % 37-47 [facility] Laboratory - Chemistry and C hemistry - challengeOrdered By: Lizet Linares on 11-10-2022 CO2 [Moles/Vol] 27.0 mmol/L 21.0-32.0 [facility] Urea nitrogen/Creatinine [Mass ratio] 22.6 mg/mg 10-20 [facility] Laboratory - Hematology and Cell countsOrdered By: Lizet Linares on 11-10-2022 Erythrocyte distribution width (RBC) [Entitic vol] 44.0 fL 35.1-43.[address] [facility] Erythrocyte distribution width (RBC) [Ratio] 13.6 % 11.6-14.6 [facility] MCH (RBC) [Entitic mass] 28.9 pg 27.0-32.0 [facility] MCHC Auto (RBC) [Mass/Vol]Or dered By: Lizet Linares on 11-10-2022 MCHC (RBC) [Mass/Vol] 32.8 g/dL 32-36 [facility] No Panel InformationOrdered By: Lizet Linares on 11-10-2022 Estimated GFR (MDRD) Amer 68 mL/min >60 [facility] Comment on above: GFR Calc Estimated GFR (MDRD) Non-Af Amer 56 mL/min >60 [facility] Comment on above: Non- GFR Calc 28.9 pg 27.0-32.0 [facility] 13.6 % 11.6-14.6 [facility] 44.0 fl 35.1-43.9 [facility] 56 mL/min >60 [facility] 68 mL/min >60 [facility] 22.6 RATIO 10-20 [facility] 27.0 mmol/L 21.0-32.0 [facility] Platelets bldOrdered By: Bart Linares on 11-10-2022 Platelets (Bld) [#/Vol] 292 10*3/uL 150-450 [facility] Serum or plasma calcium tai urement (mass/volume)Ordered By: Lizet Linares on 11-10-2022 Calcium [Mass/Vol] 8.9 mg/dL 8.5-10.[address] [facility] Serum or plasma creatinine m easurement (mass/volume)Ordered By: Lizet Linares on 11-10-2022 Creatinine [Mass/Vol] 1.06 mg/dL 0.55-1.02 [facility] Comment on above: The validity of the calculated GFR & GFRAA in patients over 70 years has not been determined. Clinical correlation is essential. Serum or plasma urea nitroge n measurement (mass/volume)Ordered By: Lizet Linares on 11-10-2022 Urea nitrogen [Mass/Vol] 24 mg/dL 7-18 [facility] Thin prep Papanicolaou smear with manual screeningOrdered By: Lizet Linares on 11-10-2022 Thin prep Papanicolaou smear with manual screening 8 5-15 [facility] Whole blood hemoglobin A1c/t otal hemoglobin ratio (mass fraction)Ordered By: Lizet Linares on 11-10-2022 HbA1c (Bld) [Mass fraction] 11.3 % 3.8-5.6 [facility] Comment on above: Normal < 5.7 % Predi abetic 5.7 - 6.4 % Diabetic >or= 6.5 % Please note range changes. Absolute lymphocyte countOrd ered By: Dr. Camp on 11-05-2022 Lymphocytes Auto (Unsp spec) [#/Vol] 4.02 10*3/uL 0.83-4.51 [facility] Basophil percentageOrdered B y: Dr. Camp on 11-05-2022 Basophil percentage 441 mg/dL 74-106 [facility] Basophil percentage 133 mmol/L 136-145 [facility] Basophil percentage 4.7 mmol/L 3.5-5.1 [facility] Basophil percentage 99 mmol/L 98-107 [facility] Basophils (Bld) [#/Vol] 9.1 10*3/uL 4.4-11.0 [facility] Basophils (Bld) [#/Vol] 4.4 10*3/uL 2.0-7.7 [facility] Basophils/100 WBC (Bld) 0.8 % 0-1 [facility] Basophils/100 WBC (Bld) 48.7 % 47-70 [facility] Basophils/100 WBC (Bld) 1.7 % 0-5 [facility] Chloride [Moles/Vol] 99 mmol/L 98-107 [facility] Eosinophils/100 WBC (Bld) 1.7 % 0-5 [facility] Glucose [Mass/Vol] 441 mg/dL 74-[address] [facility] Comment on above: Glucose result great er than or equal to 200 mg/dLsuggests DIABETES MELLITUS per A.D.A. criteria. Neutrophils (Bld) [#/Vol] 4.4 10*3/uL 2.0-7.7 [facility] Neutrophils/100 WBC (Bld) 48.7 % 47-70 [facility] Potassium [Moles/Vol] 4.7 mmol/L 3.5-5.1 [facility] Sodium [Moles/Vol] 133 mmol/L 136-[address] [facility] WBC (Bld) [#/Vol] 9.1 10*3/uL 4.4-11.[address] [facility] Blood erythrocytes count (nu mber/volume)Ordered By: Dr. Camp on 11-05-2022 RBC (Bld) [#/Vol] 4.28 10*6/uL 4.2-5.4 [facility] Blood hemoglobin measurement (mass/volume)Ordered By: Dr. Camp on 11-05-2022 Hemoglobin (Bld) [Mass/Vol] 12.1 g/dL 12.0-15.0 [facility] Blood lymphocytes/100 leukoc ytesOrdered By: Dr. Camp on 11-05-2022 Lymphocytes/100 WBC (Bld) 44.2 % 19-41 [facility] Blood monocytes/100 leukocyt esOrdered By: Dr. Camp on 11-05-2022 Monocytes/100 WBC (Bld) 4.2 % 0-10 [facility] Blood platelet mean volumeOr dered By: Dr. Camp on 11-05-2022 Platelet mean volume (Bld) [Entitic vol] 9.7 fL 6.2-12.0 [facility] Determination of erythrocyte mean corpuscular volume (MCV)Ordered By: Dr. Camp on 11-05-2022 MCV (RBC) [Entitic vol] 86.0 fL 81-99 [facility] Hematocrit Auto (Bld) [Volum e fraction]Ordered By: Dr. Camp on 11-05-2022 Hematocrit (Bld) [Volume fraction] 36.8 % 37-47 [facility] Laboratory - Chemistry and C hemistry - challengeOrdered By: Dr. Camp on 11-05-2022 CO2 [Moles/Vol] 27.0 mmol/L 21.0-32.0 [facility] Urea nitrogen/Creatinine [Mass ratio] 18.8 mg/mg 10-20 [facility] - Hematology and Cell countsOrdered By: Dr. Camp on 11-05-2022 Erythrocyte distribution width (RBC) [Entitic vol] 42.0 fL 35.1-43.[address] [facility] Erythrocyte distribution width (RBC) [Ratio] 13.3 % 11.6-14.6 [facility] Immature granulocytes/100 WBC (Bld) 0.400 % 0.0-0.9 [facility] Comment on above: IG% - Immature Granu locytes (promyelocytes, myelocytes and metamyelocytes) > 1% indicates that a LEFT SHIFT is Present. MCH (RBC) [Entitic mass] 28.3 pg 27.0-32.0 [facility] Nucleated RBC/100 WBC (Bld) [Ratio] 0.2 % 0-5 [facility] MCHC Auto (RBC) [Mass/Vol]Or dered By: Dr. Camp on 11-05-2022 MCHC (RBC) [Mass/Vol] 32.9 g/dL 32-36 [facility] No Panel InformationOrdered By: Dr. Camp on 11-05-2022 Troponin I High Sensitivity 8 pg/mL 3.0-54.0 [facility] Comment on above: Please Note: New Carolann t Units and Gender Specific Reference Ranges. For more information see Policy Stat Procedure [place] High Sensitivity Troponin (TNIH) and attachments. 8 pg/mL 3.0-54.0 [facility] Estimated Creatinine Clearance Calc 33.99 ml/min [facility] Estimated GFR (MDRD) Amer 55 mL/min >60 [facility] Comment on above: GFR Calc Estimated GFR (MDRD) Non-Af Amer 45 mL/min >60 [facility] Comment on above: Non- GFR Calc 28.3 pg 27.0-32.0 [facility] 13.3 % 11.6-14.6 [facility] 42.0 fl 35.1-43.9 [facility] 0.400 % 0.0-0.9 [facility] 0.2 % 0-5 [facility] 45 mL/min >60 [facility] 55 mL/min >60 [facility] 33.99 ml/min [facility] 18.8 RATIO 10-20 [facility] 27.0 mmol/L 21.0-32.0 [facility] Platelets bldOrdered By: Dr. Camp on 11-05-2022 Platelets (Bld) [#/Vol] 290 10*3/uL 150-450 [facility] Serum or plasma calcium tai urement (mass/volume)Ordered By: Dr. Camp on 11-05-2022 Calcium [Mass/Vol] 9.5 mg/dL 8.5-10.[address] [facility] Serum or plasma creatinine m easurement (mass/volume)Ordered By: Dr. Camp on 11-05-2022 Creatinine [Mass/Vol] 1.28 mg/dL 0.55-1.02 [facility] Comment on above: The validity of the calculated GFR & GFRAA in patients over 70 years has not been determined. Clinical correlation is essential. Serum or plasma urea nitroge n measurement (mass/volume)Ordered By: Dr. Camp on 11-05-2022 Urea nitrogen [Mass/Vol] 24 mg/dL 7-18 [facility] Thin prep Papanicolaou smear with manual screeningOrdered By: Dr. Camp on 11-05-2022 Thin prep Papanicolaou smear with manual screening 7 5-15 [facility] Basophil percentageOrdered B y: Lizet Linares on 10-30-2022 Basophil percentage 359 mg/dL 74-106 [facility] Basophil percentage 134 mmol/L 136-145 [facility] Basophil percentage 4.2 mmol/L 3.5-5.1 [facility] Basophil percentage 100 mmol/L 98-107 [facility] Chloride [Moles/Vol] 100 mmol/L 98-107 [facility] Glucose [Mass/Vol] 359 mg/dL 74-[address] [facility] Comment on above: Glucose result great er than or equal to 200 mg/dLsuggests DIABETES MELLITUS per A.D.A. criteria. Potassium [Moles/Vol] 4.2 mmol/L 3.5-5.1 [facility] Sodium [Moles/Vol] 134 mmol/L 136-[address] [facility] Laboratory - Chemistry and C hemistry - challengeOrdered By: Lizet Linares on 10-30-2022 CO2 [Moles/Vol] 28.0 mmol/L 21.0-32.0 [facility] Urea nitrogen/Creatinine [Mass ratio] 23.1 mg/mg 10-20 [facility] No Panel InformationOrdered By: Lizet Linares on 10-30-2022 Estimated GFR (MDRD) Amer 54 mL/min >60 [facility] Comment on above: GFR Calc Estimated GFR (MDRD) Non-Af Amer 45 mL/min >60 [facility] Comment on above: Non- GFR Calc 45 mL/min >60 [facility] 54 mL/min >60 [facility] 23.1 RATIO 10-20 [facility] 28.0 mmol/L 21.0-32.0 [facility] Serum or plasma calcium tai urement (mass/volume)Ordered By: Lizet Linares on 10-30-2022 Calcium [Mass/Vol] 8.9 mg/dL 8.5-10.[address] [facility] Serum or plasma creatinine m easurement (mass/volume)Ordered By: Lizet Linares on 10-30-2022 Creatinine [Mass/Vol] 1.30 mg/dL 0.55-1.02 [facility] Comment on above: The validity of the calculated GFR & GFRAA in patients over 70 years has not been determined. Clinical correlation is essential. Serum or plasma urea nitroge n measurement (mass/volume)Ordered By: Lizet Linares on 10-30-2022 Urea nitrogen [Mass/Vol] 30 mg/dL 7-18 [facility] Thin prep Papanicolaou smear with manual screeningOrdered By: Lizet Linares on 10-30-2022 Thin prep Papanicolaou smear with manual screening 6 5-15 [facility] Basophil percentageOrdered B y: Lizet Linares on 10-27-2022 Basophil percentage 295 mg/dL 74-106 [facility] Basophil percentage 134 mmol/L 136-145 [facility] Basophil percentage 4.3 mmol/L 3.5-5.1 [facility] Basophil percentage 100 mmol/L 98-107 [facility] Basophils (Bld) [#/Vol] 7.7 10*3/uL 4.4-11.0 [facility] Chloride [Moles/Vol] 100 mmol/L 98-107 [facility] Glucose [Mass/Vol] 295 mg/dL 74-[address] [facility] Comment on above: Glucose result great er than or equal to 200 mg/dLsuggests DIABETES MELLITUS per A.D.A. criteria. Potassium [Moles/Vol] 4.3 mmol/L 3.5-5.1 [facility] Sodium [Moles/Vol] 134 mmol/L 136-[address] [facility] WBC (Bld) [#/Vol] 7.7 10*3/uL 4.4-11.[address] [facility] Blood erythrocytes count (nu mber/volume)Ordered By: Lizet Linares on 10-27-2022 RBC (Bld) [#/Vol] 4.02 10*6/uL 4.2-5.4 [facility] Blood hemoglobin measurement (mass/volume)Ordered By: Lizet Linares on 10-27-2022 Hemoglobin (Bld) [Mass/Vol] 11.4 g/dL 12.0-15.0 [facility] Blood platelet mean volumeOr dered By: Lizet Linares on 10-27-2022 Platelet mean volume (Bld) [Entitic vol] 10.4 fL 6.2-12.0 [facility] Determination of erythrocyte mean corpuscular volume (MCV)Ordered By: Lizet Linares on 10-27-2022 MCV (RBC) [Entitic vol] 88.1 fL 81-99 [facility] Hematocrit Auto (Bld) [Volum e fraction]Ordered By: Lizet Linares on 10-27-2022 Hematocrit (Bld) [Volume fraction] 35.4 % 37-47 [facility] - Chemistry and C hemistry - challengeOrdered By: Lizet Linares on 10-27-2022 CO2 [Moles/Vol] 29.0 mmol/L 21.0-32.0 [facility] Urea nitrogen/Creatinine [Mass ratio] 24.8 mg/mg 10-20 [facility] - Hematology and Cell countsOrdered By: Lizet Linares on 10-27-2022 Erythrocyte distribution width (RBC) [Entitic vol] 44.1 fL 35.1-43.[address] [facility] Erythrocyte distribution width (RBC) [Ratio] 13.7 % 11.6-14.6 [facility] MCH (RBC) [Entitic mass] 28.4 pg 27.0-32.0 [facility] MCHC Auto (RBC) [Mass/Vol]Or dered By: Lizet Linares on 10-27-2022 MCHC (RBC) [Mass/Vol] 32.2 g/dL 32-36 [facility] No Panel InformationOrdered By: Lizet Linares on 10-27-2022 Estimated GFR (MDRD) Amer 61 mL/min >60 [facility] Comment on above: GFR Calc Estimated GFR (MDRD) Non-Af Amer 50 mL/min >60 [facility] Comment on above: Non- GFR Calc 28.4 pg 27.0-32.0 [facility] 13.7 % 11.6-14.6 [facility] 44.1 fl 35.1-43.9 [facility] 50 mL/min >60 [facility] 61 mL/min >60 [facility] 24.8 RATIO 10-20 [facility] 29.0 mmol/L 21.0-32.0 [facility] Platelets bldOrdered By: Bart Linares on 10-27-2022 Platelets (Bld) [#/Vol] 299 10*3/uL 150-450 [facility] Serum or plasma calcium tia urement (mass/volume)Ordered By: Lizet Linares on 10-27-2022 Calcium [Mass/Vol] 9.0 mg/dL 8.5-10.[address] [facility] Serum or plasma creatinine m easurement (mass/volume)Ordered By: Lizet Linares on 10-27-2022 Creatinine [Mass/Vol] 1.17 mg/dL 0.55-1.02 [facility] Comment on above: The validity of the calculated GFR & GFRAA in patients over 70 years has not been determined. Clinical correlation is essential. Serum or plasma urea nitroge n measurement (mass/volume)Ordered By: Lizet Linares on 10-27-2022 Urea nitrogen [Mass/Vol] 29 mg/dL 7-18 [facility] Thin prep Papanicolaou smear with manual screeningOrdered By: Lizet Linares on 10-27-2022 Thin prep Papanicolaou smear with manual screening 5 5-15 [facility] Basophil percentageOrdered B y: Lizet Linares on 10-13-2022 Basophil percentage 332 mg/dL 74-106 [facility] Basophil percentage 134 mmol/L 136-145 [facility] Basophil percentage 4.4 mmol/L 3.5-5.1 [facility] Basophil percentage 96 mmol/L 98-107 [facility] Basophils (Bld) [#/Vol] 6.8 10*3/uL 4.4-11.0 [facility] Chloride [Moles/Vol] 96 mmol/L 98-107 [facility] Glucose [Mass/Vol] 332 mg/dL 74-[address] [facility] Comment on above: Glucose result great er than or equal to 200 mg/dLsuggests DIABETES MELLITUS per A.D.A. criteria. Potassium [Moles/Vol] 4.4 mmol/L 3.5-5.1 [facility] Sodium [Moles/Vol] 134 mmol/L 136-[address] [facility] WBC (Bld) [#/Vol] 6.8 10*3/uL 4.4-11.[address] [facility] Blood erythrocytes count (nu mber/volume)Ordered By: Lizet Linares on 10-13-2022 RBC (Bld) [#/Vol] 4.15 10*6/uL 4.2-5.4 [facility] Blood hemoglobin measurement (mass/volume)Ordered By: Lizet Linares on 10-13-2022 Hemoglobin (Bld) [Mass/Vol] 11.8 g/dL 12.0-15.0 [facility] Blood platelet mean volumeOr dered By: Lizet Linares on 10-13-2022 Platelet mean volume (Bld) [Entitic vol] 10.0 fL 6.2-12.0 [facility] Determination of erythrocyte mean corpuscular volume (MCV)Ordered By: Lizet Linares on 10-13-2022 MCV (RBC) [Entitic vol] 87.5 fL 81-99 [facility] Hematocrit Auto (Bld) [Volum e fraction]Ordered By: Lizet Linares on 10-13-2022 Hematocrit (Bld) [Volume fraction] 36.3 % 37-47 [facility] Laboratory - Chemistry and C hemistry - challengeOrdered By: Lizet Linares on 10-13-2022 CO2 [Moles/Vol] 29.0 mmol/L 21.0-32.0 [facility] Urea nitrogen/Creatinine [Mass ratio] 15.2 mg/mg 10-20 [facility] - Hematology and Cell countsOrdered By: Lizte Linares on 10-13-2022 Erythrocyte distribution width (RBC) [Entitic vol] 43.6 fL 35.1-43.[address] [facility] Erythrocyte distribution width (RBC) [Ratio] 13.5 % 11.6-14.6 [facility] MCH (RBC) [Entitic mass] 28.4 pg 27.0-32.0 [facility] MCHC Auto (RBC) [Mass/Vol]Or dered By: Lizet Linares on 10-13-2022 MCHC (RBC) [Mass/Vol] 32.5 g/dL 32-36 [facility] No Panel InformationOrdered By: Lizet Linares on 10-13-2022 Estimated GFR (MDRD) Amer 50 mL/min >60 [facility] Comment on above: GFR Calc Estimated GFR (MDRD) Non-Af Amer 42 mL/min >60 [facility] Comment on above: Non- GFR Calc 28.4 pg 27.0-32.0 [facility] 13.5 % 11.6-14.6 [facility] 43.6 fl 35.1-43.9 [facility] 42 mL/min >60 [facility] 50 mL/min >60 [facility] 15.2 RATIO 10-20 [facility] 29.0 mmol/L 21.0-32.0 [facility] Platelets bldOrdered By: Bart manjindernatasha Linares on 10-13-2022 Platelets (Bld) [#/Vol] 274 10*3/uL 150-450 [facility] Serum or plasma calcium tai urement (mass/volume)Ordered By: Lizet Linares on 10-13-2022 Calcium [Mass/Vol] 9.0 mg/dL 8.5-10.[address] [facility] Serum or plasma creatinine m easurement (mass/volume)Ordered By: Lizet Linares on 10-13-2022 Creatinine [Mass/Vol] 1.38 mg/dL 0.55-1.02 [facility] Comment on above: The validity of the calculated GFR & GFRAA in patients over 70 years has not been determined. Clinical correlation is essential. Serum or plasma urea nitroge n measurement (mass/volume)Ordered By: Lizet Linaers on 10-13-2022 Urea nitrogen [Mass/Vol] 21 mg/dL 7-18 [facility] Thin prep Papanicolaou smear with manual screeningOrdered By: Lizet Linares on 10-13-2022 Thin prep Papanicolaou smear with manual screening 9 5-15 [facility] Culture, urineOrdered By: Rae Hamilton on 10-11-2022 Bacteria identified Cx Nom (U) Culture exhibits no growth. [facility] Absolute lymphocyte countOrd ered By: Tip Hamilton on 10-09-2022 Lymphocytes Auto (Unsp spec) [#/Vol] 4.14 10*3/uL 0.83-4.51 [facility] Basophil percentageOrdered B y: Tip Hamilton on 10-09-2022 Basophil percentage 25-50 SEEN /hpf 0-5 [facility] Basophil percentage 272 mg/dL 74-106 [facility] Basophil percentage 6.9 g/dL 6.4-8.2 [facility] Basophil percentage 0.30 mg/dL 0.20-1.00 [facility] Basophil percentage 134 mmol/L 136-145 [facility] Basophil percentage 4.8 mmol/L 3.5-5.1 [facility] Basophil percentage 100 mmol/L 98-107 [facility] Basophils (Bld) [#/Vol] 9.9 10*3/uL 4.4-11.0 [facility] Basophils (Bld) [#/Vol] 5.0 10*3/uL 2.0-7.7 [facility] Basophils/100 WBC (Bld) 0.7 % 0-1 [facility] Basophils/100 WBC (Bld) 50.3 % 47-70 [facility] Basophils/100 WBC (Bld) 1.3 % 0-5 [facility] Bilirubin [Mass/Vol] 0.30 mg/dL 0.20-1.00 [facility] Comment on above: For patients on eltr ombopag therapy, use of Dimension [place] TBIL is not recommended. Chloride [Moles/Vol] 100 mmol/L 98-107 [facility] Eosinophils/100 WBC (Bld) 1.3 % 0-5 [facility] Glucose [Mass/Vol] 272 mg/dL 74-[address] [facility] Comment on above: Glucose result great er than or equal to 200 mg/dLsuggests DIABETES MELLITUS per A.D.A. criteria. Neutrophils (Bld) [#/Vol] 5.0 10*3/uL 2.0-7.7 [facility] Neutrophils/100 WBC (Bld) 50.3 % 47-70 [facility] Potassium [Moles/Vol] 4.8 mmol/L 3.5-5.1 [facility] Protein [Mass/Vol] 6.9 g/dL 6.4-8.[address] [facility] Sodium [Moles/Vol] 134 mmol/L 136-[address] [facility] WBC (Bld) [#/Vol] 9.9 10*3/uL 4.4-11.[address] [facility] Bilirubin Test strip Ql (U)O rdered By: Tip Hamilton on 10-09-2022 Bilirubin Ql (U) Negative Negative [facility] Blood erythrocytes count (nu mber/volume)Ordered By: Tip Hamilton on 10-09-2022 RBC (Bld) [#/Vol] 4.11 10*6/uL 4.2-5.4 [facility] Blood hemoglobin measurement (mass/volume)Ordered By: Tip Hamilton on 10-09-2022 Hemoglobin (Bld) [Mass/Vol] 11.5 g/dL 12.0-15.0 [facility] Blood lymphocytes/100 leukoc ytesOrdered By: Tip Hamilton on 10-09-2022 Lymphocytes/100 WBC (Bld) 41.9 % 19-41 [facility] Blood monocytes/100 leukocyt esOrdered By: Tip Hamilton on 10-09-2022 Monocytes/100 WBC (Bld) 5.5 % 0-10 [facility] Blood platelet mean volumeOr dered By: Tip Hamilton on 10-09-2022 Platelet mean volume (Bld) [Entitic vol] 9.8 fL 6.2-12.0 [facility] Determination of erythrocyte mean corpuscular volume (MCV)Ordered By: Tip Hamilton on 10-09-2022 MCV (RBC) [Entitic vol] 86.9 fL 81-99 [facility] Direct bilirubinOrdered By: Tip Hamilton on 10-09-2022 Bilirubin.direct [Mass/Vol] 0.11 mg/dL 0.00-0.30 [facility] Hematocrit Auto (Bld) [Volum e fraction]Ordered By: Tip Hamilton on 10-09-2022 Hematocrit (Bld) [Volume fraction] 35.7 % 37-47 [facility] Ketones Test strip Ql (U)Ord ered By: Tip Hamilton on 10-09-2022 Ketones Ql (U) Negative Negative [facility] Laboratory - Chemistry and C hemistry - challengeOrdered By: Tip Hamilton on 10-09-2022 ALP [Catalytic activity/Vol] 69 U/L 45-117 [facility] ALT [Catalytic activity/Vol] 25 U/L 13-56 [facility] CO2 [Moles/Vol] 29.0 mmol/L 21.0-32.0 [facility] Globulin (S) [Mass/Vol] 3.8 g/dL 2.2-4.2 [facility] Lipase [Catalytic activity/Vol] 89 U/L 73-393 [facility] Urea nitrogen/Creatinine [Mass ratio] 21.0 mg/mg 10-20 [facility] Laboratory - Hematology and Cell countsOrdered By: Tip Hamilton on 10-09-2022 Erythrocyte distribution width (RBC) [Entitic vol] 44.0 fL 35.1-43.[address] [facility] Erythrocyte distribution width (RBC) [Ratio] 13.9 % 11.6-14.6 [facility] Immature granulocytes/100 WBC (Bld) 0.300 % 0.0-0.9 [facility] Comment on above: IG% - Immature Granu locytes (promyelocytes, myelocytes and metamyelocytes) > 1% indicates that a LEFT SHIFT is Present. MCH (RBC) [Entitic mass] 28.0 pg 27.0-32.0 [facility] Nucleated RBC/100 WBC (Bld) [Ratio] 0 % 0-5 [facility] MCHC Auto (RBC) [Mass/Vol]Or dered By: Tip Hamilton on 10-09-2022 MCHC (RBC) [Mass/Vol] 32.2 g/dL 32-36 [facility] Mucus LM Ql (Urine sed)Order ed By: Tip Hamilton on 10-09-2022 Mucus Ql (Urine sed) 0 SEEN /hpf [facility] Nitrite Test strip Ql (U)Ord ered By: Tip Hamilton on 10-09-2022 Nitrite Ql (U) Negative Negative [facility] No Panel InformationOrdered By: Tip Hamilton on 10-09-2022 Estimated Creatinine Clearance Calc 35.09 ml/min [facility] Estimated GFR (MDRD) Amer 57 mL/min >60 [facility] Comment on above: GFR Calc Estimated GFR (MDRD) Non-Af Amer 47 mL/min >60 [facility] Comment on above: Non- GFR Calc 28.0 pg 27.0-32.0 [facility] 13.9 % 11.6-14.6 [facility] 44.0 fl 35.1-43.9 [facility] 0.300 % 0.0-0.9 [facility] 0 % 0-5 [facility] 47 mL/min >60 [facility] 57 mL/min >60 [facility] 35.09 ml/min [facility] 21.0 RATIO 10-20 [facility] 3.8 g/dL 2.2-4.2 [facility] 89 U/L 73-393 [facility] 69 U/L 45-117 [facility] 25 U/L 13-56 [facility] 29.0 mmol/L 21.0-32.0 [facility] Platelets bldOrdered By: Kali Hamilton on 10-09-2022 Platelets (Bld) [#/Vol] 286 10*3/uL 150-450 [facility] Protein Test strip Ql (U)Ord ered By: Tip Hamilton on 10-09-2022 Protein Ql (U) 15 mg/dl Negative [facility] Serum or plasma albumin tai urement (mass/volume)Ordered By: Tip Hamilton on 10-09-2022 Albumin [Mass/Vol] 3.1 g/dL 3.2-5.[address] [facility] Serum or plasma calcium tai urement (mass/volume)Ordered By: Tip Hamilton on 10-09-2022 Calcium [Mass/Vol] 8.8 mg/dL 8.5-10.[address] [facility] Serum or plasma creatinine m easurement (mass/volume)Ordered By: Tip Hamilton on 10-09-2022 Creatinine [Mass/Vol] 1.24 mg/dL 0.55-1.02 [facility] Comment on above: The validity of the calculated GFR & GFRAA in patients over 70 years has not been determined. Clinical correlation is essential. Serum or plasma urea nitroge n measurement (mass/volume)Ordered By: Tip Hamilton on 10-09-2022 Urea nitrogen [Mass/Vol] 26 mg/dL 7-18 [facility] Squamous epithelial cells de tection in urine sediment by light microscopyOrdered By: Tip Hamilton on 10-09-2022 Epithelial cells.squamous LM Ql (Urine sed) 0-5 SEEN /hpf 5-10 [facility] Thin prep Papanicolaou smear with manual screeningOrdered By: Tip Hamilton on 10-09-2022 Thin prep Papanicolaou smear with manual screening 17 U/L 15-37 [facility] Thin prep Papanicolaou smear with manual screening 5 5-15 [facility] Urine blood detectionOrdered By: Tip Hamilton on 10-09-2022 RBC Ql (U) 10 /ul Negative [facility] RBC Ql (U) 0 SEEN /hpf 0-5 [facility] Urine clarityOrdered By: Kali Hamilton on 10-09-2022 Clarity (U) Sl. Cloudy Clear [facility] Urine color determinationOrd ered By: Tip Hamilton on 10-09-2022 Color (U) Yellow Yellow [facility] Urine glucose detectionOrder ed By: Tip Hamilton on 10-09-2022 Glucose Ql (U) 100 mg/dl Normal [facility] Urine leukocyte esterase det ection by dipstickOrdered By: Tip Hamilton on 10-09-2022 Leukocyte esterase Test strip Ql (U) 500 /ul Negative [facility] Urine pHOrdered By: Tip gonzalez on 10-09-2022 pH (U) 6.5 [pH] 5.0 - 8.0 [facility] Urine sediment bacteria coun t by microscopy (number/high power field)Ordered By: Tip Hamilton on 10-09-2022 Bacteria LM.HPF (Urine sed) [#/Area] 4 /[HPF] None Seen [facility] Urine specific gravity measu rementOrdered By: Tip Hamilton on 10-09-2022 Specific gravity (U) [Rel density] 1.010 1.002-1.03 0 [facility] Urobilinogen Auto test strip Ql (U)Ordered By: Tip Hamilton on 10-09-2022 Urobilinogen Ql (U) Normal mg/dl Normal [facility] Basophil percentageOrdered B y: Ganesh Garcia on 09-29-2022 Basophil percentage 426 mg/dL 74-106 [facility] Basophil percentage 132 mmol/L 136-145 [facility] Basophil percentage 4.1 mmol/L 3.5-5.1 [facility] Basophil percentage 98 mmol/L 98-107 [facility] Basophils (Bld) [#/Vol] 6.8 10*3/uL 4.4-11.0 [facility] Chloride [Moles/Vol] 98 mmol/L 98-107 [facility] Glucose [Mass/Vol] 426 mg/dL 74-[address] [facility] Comment on above: Glucose result great er than or equal to 200 mg/dLsuggests DIABETES MELLITUS per A.D.A. criteria. Potassium [Moles/Vol] 4.1 mmol/L 3.5-5.1 [facility] Sodium [Moles/Vol] 132 mmol/L 136-[address] [facility] WBC (Bld) [#/Vol] 6.8 10*3/uL 4.4-11.[address] [facility] Blood erythrocytes count (nu mber/volume)Ordered By: Ganesh Garcia on 09-29-2022 RBC (Bld) [#/Vol] 4.11 10*6/uL 4.2-5.4 [facility] Blood hemoglobin measurement (mass/volume)Ordered By: Ganesh Garcia on 09-29-2022 Hemoglobin (Bld) [Mass/Vol] 11.5 g/dL 12.0-15.0 [facility] Blood platelet mean volumeOr dered By: Ganesh Garcia on 09-29-2022 Platelet mean volume (Bld) [Entitic vol] 10.2 fL 6.2-12.0 [facility] Determination of erythrocyte mean corpuscular volume (MCV)Ordered By: Ganesh Garcia on 09-29-2022 MCV (RBC) [Entitic vol] 85.9 fL 81-99 [facility] Hematocrit Auto (Bld) [Volum e fraction]Ordered By: Ganesh Garcia on 09-29-2022 Hematocrit (Bld) [Volume fraction] 35.3 % 37-47 [facility] Laboratory - Chemistry and C hemistry - challengeOrdered By: Ganesh Garcia on 09-29-2022 CO2 [Moles/Vol] 27.0 mmol/L 21.0-32.0 [facility] Urea nitrogen/Creatinine [Mass ratio] 21.9 mg/mg 10-20 [facility] Laboratory - Hematology and Cell countsOrdered By: Ganesh Garcia on 09-29-2022 Erythrocyte distribution width (RBC) [Entitic vol] 42.8 fL 35.1-43.[address] [facility] Erythrocyte distribution width (RBC) [Ratio] 13.8 % 11.6-14.6 [facility] MCH (RBC) [Entitic mass] 28.0 pg 27.0-32.0 [facility] Auto (RBC) [Mass/Vol]Or dered By: Ganesh Garcia on 09-29-2022 MCHC (RBC) [Mass/Vol] 32.6 g/dL 32-36 [facility] No Panel InformationOrdered By: Ganesh Garcia on 09-29-2022 Estimated GFR (MDRD) Amer 63 mL/min >60 [facility] Comment on above: GFR Calc Estimated GFR (MDRD) Non-Af Amer 52 mL/min >60 [facility] Comment on above: Non- GFR Calc 28.0 pg 27.0-32.0 [facility] 13.8 % 11.6-14.6 [facility] 42.8 fl 35.1-43.9 [facility] 52 mL/min >60 [facility] 63 mL/min >60 [facility] 21.9 RATIO 10-20 [facility] 27.0 mmol/L 21.0-32.0 [facility] Platelets bldOrdered By: Robert Garcia on 09-29-2022 Platelets (Bld) [#/Vol] 289 10*3/uL 150-450 [facility] Serum or plasma calcium tai urement (mass/volume)Ordered By: Ganesh Garcia on 09-29-2022 Calcium [Mass/Vol] 9.0 mg/dL 8.5-10.[address] [facility] Serum or plasma creatinine m easurement (mass/volume)Ordered By: Ganesh Garcia on 09-29-2022 Creatinine [Mass/Vol] 1.14 mg/dL 0.55-1.02 [facility] Comment on above: The validity of the calculated GFR & GFRAA in patients over 70 years has not been determined. Clinical correlation is essential. Serum or plasma urea nitroge n measurement (mass/volume)Ordered By: Ganesh Garcia on 09-29-2022 Urea nitrogen [Mass/Vol] 25 mg/dL 7-18 [facility] Thin prep Papanicolaou smear with manual screeningOrdered By: Ganesh Garcia on 09-29-2022 Thin prep Papanicolaou smear with manual screening 7 5-15 [facility] Basophil percentageOrdered B y: Ganesh Garcia on 09-15-2022 Basophil percentage 258 mg/dL 74-106 [facility] Basophil percentage 134 mmol/L 136-145 [facility] Basophil percentage 4.1 mmol/L 3.5-5.1 [facility] Basophil percentage 99 mmol/L 98-107 [facility] Basophils (Bld) [#/Vol] 7.0 10*3/uL 4.4-11.0 [facility] Chloride [Moles/Vol] 99 mmol/L 98-107 [facility] Glucose [Mass/Vol] 258 mg/dL 74-[address] [facility] Comment on above: Glucose result great er than or equal to 200 mg/dLsuggests DIABETES MELLITUS per A.D.A. criteria. Potassium [Moles/Vol] 4.1 mmol/L 3.5-5.1 [facility] Sodium [Moles/Vol] 134 mmol/L 136-[address] [facility] WBC (Bld) [#/Vol] 7.0 10*3/uL 4.4-11.[address] [facility] Blood erythrocytes count (nu mber/volume)Ordered By: Ganesh Garcia on 09-15-2022 RBC (Bld) [#/Vol] 3.71 10*6/uL 4.2-5.4 [facility] Blood hemoglobin measurement (mass/volume)Ordered By: Ganesh Garcia on 09-15-2022 Hemoglobin (Bld) [Mass/Vol] 10.6 g/dL 12.0-15.0 [facility] Blood platelet mean volumeOr dered By: Ganesh Garcia on 09-15-2022 Platelet mean volume (Bld) [Entitic vol] 10.1 fL 6.2-12.0 [facility] Determination of erythrocyte mean corpuscular volume (MCV)Ordered By: Ganesh Garcia on 09-15-2022 MCV (RBC) [Entitic vol] 84.9 fL 81-99 [facility] Hematocrit Auto (Bld) [Volum e fraction]Ordered By: Ganesh Garcia on 09-15-2022 Hematocrit (Bld) [Volume fraction] 31.5 % 37-47 [facility] Laboratory - Chemistry and C hemistry - challengeOrdered By: Ganesh Garcia on 09-15-2022 CO2 [Moles/Vol] 26.0 mmol/L 21.0-32.0 [facility] Urea nitrogen/Creatinine [Mass ratio] 22.8 mg/mg 10- [facility] - Hematology and Cell countsOrdered By: Ganesh Garcia on 09-15-2022 Erythrocyte distribution width (RBC) [Entitic vol] 43.3 fL 35.1-43.[address] [facility] Erythrocyte distribution width (RBC) [Ratio] 14.0 % 11.6-14.6 [facility] MCH (RBC) [Entitic mass] 28.6 pg 27.0-32.0 [facility] MCHC Auto (RBC) [Mass/Vol]Or dered By: Ganesh Garcia on 09-15-2022 MCHC (RBC) [Mass/Vol] 33.7 g/dL 32-36 [facility] No Panel InformationOrdered By: Ganesh Garcia on 09-15-2022 Estimated GFR (MDRD) Amer 72 mL/min >60 [facility] Comment on above: GFR Calc Estimated GFR (MDRD) Non-Af Amer 60 mL/min >60 [facility] Comment on above: Non- GFR Calc 28.6 pg 27.0-32.0 [facility] 14.0 % 11.6-14.6 [facility] 43.3 fl 35.1-43.9 [facility] 60 mL/min >60 [facility] 72 mL/min >60 [facility] 22.8 RATIO 08-13 [facility] 26.0 mmol/L 21.0-32.0 [facility] Platelets bldOrdered By: Robert Garcia on 09-15-2022 Platelets (Bld) [#/Vol] 258 10*3/uL 150-450 [facility] Serum or plasma calcium tai urement (mass/volume)Ordered By: Ganesh Garcia on 09-15-2022 Calcium [Mass/Vol] 8.6 mg/dL 8.5-10.[address] [facility] Serum or plasma creatinine m easurement (mass/volume)Ordered By: Ganesh Garcia on 09-15-2022 Creatinine [Mass/Vol] 1.01 mg/dL 0.55-1.02 [facility] Comment on above: The validity of the calculated GFR & GFRAA in patients over 70 years has not been determined. Clinical correlation is essential. Serum or plasma urea nitroge n measurement (mass/volume)Ordered By: Ganesh Garcia on 09-15-2022 Urea nitrogen [Mass/Vol] 23 mg/dL 7-18 [facility] Thin prep Papanicolaou smear with manual screeningOrdered By: Ganesh Garcia on 09-15-2022 Thin prep Papanicolaou smear with manual screening 9 5-15 [facility] Basophil percentageOrdered B y: Ganesh Garcia on 09-11-2022 Basophil percentage 246 mg/dL 74-106 [facility] Basophil percentage 136 mmol/L 136-145 [facility] Basophil percentage 4.3 mmol/L 3.5-5.1 [facility] Basophil percentage 100 mmol/L 98-107 [facility] Basophils (Bld) [#/Vol] 7.5 10*3/uL 4.4-11.0 [facility] Chloride [Moles/Vol] 100 mmol/L 98-107 [facility] Glucose [Mass/Vol] 246 mg/dL 74-[address] [facility] Comment on above: Glucose result great er than or equal to 200 mg/dLsuggests DIABETES MELLITUS per A.D.A. criteria. Potassium [Moles/Vol] 4.3 mmol/L 3.5-5.1 [facility] Sodium [Moles/Vol] 136 mmol/L 136-[address] [facility] WBC (Bld) [#/Vol] 7.5 10*3/uL 4.4-11.[address] [facility] Blood erythrocytes count (nu mber/volume)Ordered By: Ganesh Garcia on 09-11-2022 RBC (Bld) [#/Vol] 3.79 10*6/uL 4.2-5.4 [facility] Blood hemoglobin measurement (mass/volume)Ordered By: Ganesh Garcia on 09-11-2022 Hemoglobin (Bld) [Mass/Vol] 10.5 g/dL 12.0-15.0 [facility] Blood platelet mean volumeOr dered By: Ganesh Garcia on 09-11-2022 Platelet mean volume (Bld) [Entitic vol] 10.1 fL 6.2-12.0 [facility] Determination of erythrocyte mean corpuscular volume (MCV)Ordered By: Ganesh Garcia on 09-11-2022 MCV (RBC) [Entitic vol] 85.2 fL 81-99 [facility] Hematocrit Auto (Bld) [Volum e fraction]Ordered By: Ganesh Garcia on 09-11-2022 Hematocrit (Bld) [Volume fraction] 32.3 % 37-47 [facility] - Chemistry and C hemistry - challengeOrdered By: Ganesh Garcia on 09-11-2022 CO2 [Moles/Vol] 27.0 mmol/L 21.0-32.0 [facility] Natriuretic peptide B (Bld) [Mass/Vol] 18.5 pg/mL 0-100 [facility] Urea nitrogen/Creatinine [Mass ratio] 23.6 mg/mg 10-20 [facility] - Hematology and Cell countsOrdered By: Ganesh Garcia on 09-11-2022 Erythrocyte distribution width (RBC) [Entitic vol] 43.0 fL 35.1-43.[address] [facility] Erythrocyte distribution width (RBC) [Ratio] 13.7 % 11.6-14.6 [facility] MCH (RBC) [Entitic mass] 27.7 pg 27.0-32.0 [facility] MCHC Auto (RBC) [Mass/Vol]Or dered By: Ganesh Garcia on 09-11-2022 MCHC (RBC) [Mass/Vol] 32.5 g/dL 32-36 [facility] No Panel InformationOrdered By: Ganesh Garcia on 09-11-2022 Estimated GFR (MDRD) Amer 65 mL/min >60 [facility] Comment on above: GFR Calc Estimated GFR (MDRD) Non-Af Amer 54 mL/min >60 [facility] Comment on above: Non- GFR Calc 27.7 pg 27.0-32.0 [facility] 13.7 % 11.6-14.6 [facility] 43.0 fl 35.1-43.9 [facility] 54 mL/min >60 [facility] 65 mL/min >60 [facility] 23.6 RATIO 10-20 [facility] 27.0 mmol/L 21.0-32.0 [facility] 18.5 pg/mL 0-100 [facility] Platelets bldOrdered By: Robert Garcia on 09-11-2022 Platelets (Bld) [#/Vol] 257 10*3/uL 150-450 [facility] Serum or plasma calcium tai urement (mass/volume)Ordered By: Ganesh Garcia on 09-11-2022 Calcium [Mass/Vol] 8.6 mg/dL 8.5-10.[address] [facility] Serum or plasma creatinine m easurement (mass/volume)Ordered By: Ganesh Garcia on 09-11-2022 Creatinine [Mass/Vol] 1.10 mg/dL 0.55-1.02 [facility] Comment on above: The validity of the calculated GFR & GFRAA in patients over 70 years has not been determined. Clinical correlation is essential. Serum or plasma urea nitroge n measurement (mass/volume)Ordered By: Ganesh Garcia on 09-11-2022 Urea nitrogen [Mass/Vol] 26 mg/dL 7-18 [facility] Thin prep Papanicolaou smear with manual screeningOrdered By: Ganesh Garcia on 09-11-2022 Thin prep Papanicolaou smear with manual screening 9 -15 [facility] Basophil percentageOrdered B y: Ganesh Garcia on 09-01-2022 Chloride [Moles/Vol] 101 mmol/L 98-107 [facility] Glucose [Mass/Vol] 255 mg/dL 74-[address] [facility] Comment on above: Glucose result great er than or equal to 200 mg/dLsuggests DIABETES MELLITUS per A.D.A. criteria. Potassium [Moles/Vol] 4.1 mmol/L 3.5-5.1 [facility] Sodium [Moles/Vol] 135 mmol/L 136-[address] [facility] WBC (Bld) [#/Vol] 7.0 10*3/uL 4.4-11.[address] [facility] Blood erythrocytes count (nu mber/volume)Ordered By: Ganesh Garcia on 09-01-2022 RBC (Bld) [#/Vol] 3.93 10*6/uL 4.2-5.4 [facility] Blood hemoglobin measurement (mass/volume)Ordered By: Ganesh Garcia on 09-01-2022 Hemoglobin (Bld) [Mass/Vol] 10.9 g/dL 12.0-15.0 [facility] Blood platelet mean volumeOr dered By: Ganesh Garcia on 09-01-2022 Platelet mean volume (Bld) [Entitic vol] 9.9 fL 6.2-12.0 [facility] Determination of erythrocyte mean corpuscular volume (MCV)Ordered By: Ganesh Garcia on 09-01-2022 MCV (RBC) [Entitic vol] 84.7 fL 81-99 [facility] Hematocrit Auto (Bld) [Volum e fraction]Ordered By: Ganesh Garcia on 09-01-2022 Hematocrit (Bld) [Volume fraction] 33.3 % 37-47 [facility] - Chemistry and C hemistry - challengeOrdered By: Ganesh Garcia on 09-01-2022 CO2 [Moles/Vol] 27.0 mmol/L 21.0-32.0 [facility] Urea nitrogen/Creatinine [Mass ratio] 13.4 mg/mg 10-20 [facility] - Hematology and Cell countsOrdered By: Ganesh Garcia on 09-01-2022 Erythrocyte distribution width (RBC) [Entitic vol] 42.9 fL 35.1-43.[address] [facility] Erythrocyte distribution width (RBC) [Ratio] 13.9 % 11.6-14.6 [facility] MCH (RBC) [Entitic mass] 27.7 pg 27.0-32.0 [facility] MCHC Auto (RBC) [Mass/Vol]Or dered By: Ganesh Garcia on 09-01-2022 MCHC (RBC) [Mass/Vol] 32.7 g/dL 32-36 [facility] No Panel InformationOrdered By: Ganesh Garcia on 09-01-2022 Estimated GFR (MDRD) Amer 60 mL/min >60 [facility] Comment on above: GFR Calc Estimated GFR (MDRD) Non-Af Amer 49 mL/min >60 [facility] Comment on above: Non- GFR Calc Platelets bldOrdered By: Robert Garcia on 09-01-2022 Platelets (Bld) [#/Vol] 328 10*3/uL 150-450 [facility] Serum or plasma calcium tai urement (mass/volume)Ordered By: Ganesh Garcia on 09-01-2022 Calcium [Mass/Vol] 9.1 mg/dL 8.5-10.[address] [facility] Serum or plasma creatinine m easurement (mass/volume)Ordered By: Ganesh Garcia on 09-01-2022 Creatinine [Mass/Vol] 1.19 mg/dL 0.55-1.02 [facility] Comment on above: The validity of the calculated GFR & GFRAA in patients over 70 years has not been determined. Clinical correlation is essential. Serum or plasma urea nitroge n measurement (mass/volume)Ordered By: Ganesh Garcia on 09-01-2022 Urea nitrogen [Mass/Vol] 16 mg/dL 7-18 [facility] Thin prep Papanicolaou smear with manual screeningOrdered By: Ganesh aGrcia on 09-01-2022 Thin prep Papanicolaou smear with manual screening 7 5-15 [facility] Absolute lymphocyte countOrd ered By: Dr. Govea on 08-24-2022 Lymphocytes Auto (Unsp spec) [#/Vol] 3.37 10*3/uL 0.83-4.51 [facility] Basophil percentageOrdered B y: Dr. Govea on 08-24-2022 Basophils/100 WBC (Bld) 0.6 % 0-1 [facility] Bilirubin [Mass/Vol] 0.40 mg/dL 0.20-1.00 [facility] Comment on above: For patients on eltr ombopag therapy, use of Dimension [place] TBIL is not recommended. Chloride [Moles/Vol] 97 mmol/L 98-107 [facility] Eosinophils/100 WBC (Bld) 1.6 % 0-5 [facility] Glucose [Mass/Vol] 235 mg/dL 74-[address] [facility] Comment on above: Glucose result great er than or equal to 200 mg/dLsuggests DIABETES MELLITUS per A.D.A. criteria. Neutrophils (Bld) [#/Vol] 4.6 10*3/uL 2.0-7.7 [facility] Neutrophils/100 WBC (Bld) 53.6 % 47-70 [facility] Potassium [Moles/Vol] 4.4 mmol/L 3.5-5.1 [facility] Protein [Mass/Vol] 7.0 g/dL 6.4-8.[address] [facility] Sodium [Moles/Vol] 134 mmol/L 136-[address] [facility] WBC (Bld) [#/Vol] 8.6 10*3/uL 4.4-11.[address] [facility] Blood erythrocytes count (nu mber/volume)Ordered By: Dr. Govea on 08-24-2022 RBC (Bld) [#/Vol] 4.30 10*6/uL 4.2-5.4 [facility] Blood hemoglobin measurement (mass/volume)Ordered By: Dr. Govea on 08-24-2022 Hemoglobin (Bld) [Mass/Vol] 12.0 g/dL 12.0-15.0 [facility] Blood lymphocytes/100 leukoc ytesOrdered By: Dr. Govea on 08-24-2022 Lymphocytes/100 WBC (Bld) 39.0 % 19-41 [facility] Blood monocytes/100 leukocyt esOrdered By: Dr. Govea on 08-24-2022 Monocytes/100 WBC (Bld) 5.0 % 0-10 [facility] Blood platelet mean volumeOr dered By: Dr. Govea on 08-24-2022 Platelet mean volume (Bld) [Entitic vol] 9.5 fL 6.2-12.0 [facility] Determination of erythrocyte mean corpuscular volume (MCV)Ordered By: Dr. Govea on 08-24-2022 MCV (RBC) [Entitic vol] 83.5 fL 81-99 [facility] Direct bilirubinOrdered By: Dr. Govea on 08-24-2022 Bilirubin.direct [Mass/Vol] 0.13 mg/dL 0.00-0.30 [facility] Hematocrit Auto (Bld) [Volum e fraction]Ordered By: Dr. Govea on 08-24-2022 Hematocrit (Bld) [Volume fraction] 35.9 % 37-47 [facility] Laboratory - Chemistry and C hemistry - challengeOrdered By: Dr. Govea on 08-24-2022 ALP [Catalytic activity/Vol] 61 U/L 45-117 [facility] ALT [Catalytic activity/Vol] 23 U/L 13-56 [facility] CO2 [Moles/Vol] 28.0 mmol/L 21.0-32.0 [facility] Globulin (S) [Mass/Vol] 4.1 g/dL 2.2-4.2 [facility] Lipase [Catalytic activity/Vol] 92 U/L 73-393 [facility] Urea nitrogen/Creatinine [Mass ratio] 16.8 mg/mg 10-20 [facility] - Hematology and Cell countsOrdered By: Dr. Govea on 08-24-2022 Erythrocyte distribution width (RBC) [Entitic vol] 42.8 fL 35.1-43.[address] [facility] Erythrocyte distribution width (RBC) [Ratio] 14.2 % 11.6-14.6 [facility] Immature granulocytes/100 WBC (Bld) 0.200 % 0.0-0.9 [facility] Comment on above: IG% - Immature Granu locytes (promyelocytes, myelocytes and metamyelocytes) > 1% indicates that a LEFT SHIFT is Present. MCH (RBC) [Entitic mass] 27.9 pg 27.0-32.0 [facility] Nucleated RBC/100 WBC (Bld) [Ratio] 0 % 0-5 [facility] MCHC Auto (RBC) [Mass/Vol]Or dered By: Dr. Govea on 08-24-2022 MCHC (RBC) [Mass/Vol] 33.4 g/dL 32-36 [facility] No Panel InformationOrdered By: Dr. Govea on 08-24-2022 Troponin I High Sensitivity 10 pg/mL 3.0-54.0 [facility] Comment on above: Please Note: New Carolann t Units and Gender Specific Reference Ranges. For more information see Policy Stat Procedure Bath High Sensitivity Troponin (TNIH) and attachments. D-Dimer Quantitative (PE/DVT) 0.67 FEU/ug/m 0.27-0.49 [facility] Comment on above: D-Dimer ELEVATED (>0 .49): Additional studies and clinicalassessments are indicated to conclude diagnosis of:Deep Vein Thrombosis (DVT) or Pulmonary Embolism (PE)CRITICAL VALUE VERIFIED. CALLED TO PAT CANTU08/24/22 [id number] Maurice Cast.RESULTS READ BACK BY SAME . Estimated Creatinine Clearance Calc 30.43 ml/min [facility] Estimated GFR (MDRD) Amer 48 mL/min >60 [facility] Comment on above: GFR Calc Estimated GFR (MDRD) Non-Af Amer 40 mL/min >60 [facility] Comment on above: Non- GFR Calc Platelets bldOrdered By: Dr. Govea on 08-24-2022 Platelets (Bld) [#/Vol] 344 10*3/uL 150-450 [facility] Serum or plasma albumin tai urement (mass/volume)Ordered By: Dr. Govea on 08-24-2022 Albumin [Mass/Vol] 2.9 g/dL 3.2-5.[address] [facility] Serum or plasma calcium tai urement (mass/volume)Ordered By: Dr. Govea on 08-24-2022 Calcium [Mass/Vol] 8.8 mg/dL 8.5-10.[address] [facility] Serum or plasma creatinine m easurement (mass/volume)Ordered By: Dr. Govea on 08-24-2022 Creatinine [Mass/Vol] 1.43 mg/dL 0.55-1.02 [facility] Comment on above: The validity of the calculated GFR & GFRAA in patients over 70 years has not been determined. Clinical correlation is essential. Serum or plasma urea nitroge n measurement (mass/volume)Ordered By: Dr. Govea on 08-24-2022 Urea nitrogen [Mass/Vol] 24 mg/dL 7-18 [facility] Thin prep Papanicolaou smear with manual screeningOrdered By: Dr. Govea on 08-24-2022 Thin prep Papanicolaou smear with manual screening 22 U/L 15-37 [facility] Thin prep Papanicolaou smear with manual screening 9 5-15 [facility] Basophil percentageOrdered B y: Ganesh Garcia on 08-18-2022 Chloride [Moles/Vol] 103 mmol/L 98-107 [facility] Glucose [Mass/Vol] 158 mg/dL 74-[address] [facility] Comment on above: Fasting Glucose resu lt greater than or equal to 126 mg/dL suggests DIABETES MELLITUS per A.D.A. criteria. Potassium [Moles/Vol] 4.2 mmol/L 3.5-5.1 [facility] Sodium [Moles/Vol] 137 mmol/L 136-[address] [facility] WBC (Bld) [#/Vol] 7.1 10*3/uL 4.4-11.[address] [facility] Blood erythrocytes count (nu mber/volume)Ordered By: Ganesh Garcia on 08-18-2022 RBC (Bld) [#/Vol] 3.85 10*6/uL 4.2-5.4 [facility] Blood hemoglobin measurement (mass/volume)Ordered By: Ganesh Garcia on 08-18-2022 Hemoglobin (Bld) [Mass/Vol] 11.0 g/dL 12.0-15.0 [facility] Blood platelet mean volumeOr dered By: Ganesh Garcia on 08-18-2022 Platelet mean volume (Bld) [Entitic vol] 9.6 fL 6.2-12.0 [facility] Determination of erythrocyte mean corpuscular volume (MCV)Ordered By: Ganesh Garcia on 08-18-2022 MCV (RBC) [Entitic vol] 87.3 fL 81-99 [facility] Hematocrit Auto (Bld) [Volum e fraction]Ordered By: Ganesh Garcia on 08-18-2022 Hematocrit (Bld) [Volume fraction] 33.6 % 37-47 [facility] Laboratory - Chemistry and C hemistry - challengeOrdered By: Ganesh Garcia on 08-18-2022 CO2 [Moles/Vol] 29.0 mmol/L 21.0-32.0 [facility] Urea nitrogen/Creatinine [Mass ratio] 21.4 mg/mg 10-20 [facility] Laboratory - Hematology and Cell countsOrdered By: Ganesh Garcia on 08-18-2022 Erythrocyte distribution width (RBC) [Entitic vol] 45.0 fL 35.1-43.[address] [facility] Erythrocyte distribution width (RBC) [Ratio] 14.1 % 11.6-14.6 [facility] MCH (RBC) [Entitic mass] 28.6 pg 27.0-32.0 [facility] MCHC Auto (RBC) [Mass/Vol]Or dered By: Ganesh Garcia on 08-18-2022 MCHC (RBC) [Mass/Vol] 32.7 g/dL 32-36 [facility] No Panel InformationOrdered By: Ganesh Garcia on 08-18-2022 Estimated GFR (MDRD) Amer 64 mL/min >60 [facility] Comment on above: GFR Calc Estimated GFR (MDRD) Non-Af Amer 53 mL/min >60 [facility] Comment on above: Non- GFR Calc Platelets bldOrdered By: Robert Garcia on 08-18-2022 Platelets (Bld) [#/Vol] 310 10*3/uL 150-450 [facility] Serum or plasma calcium tai urement (mass/volume)Ordered By: Ganesh Garcia on 08-18-2022 Calcium [Mass/Vol] 9.3 mg/dL 8.5-10.[address] [facility] Serum or plasma creatinine m easurement (mass/volume)Ordered By: Ganesh Garcia on 08-18-2022 Creatinine [Mass/Vol] 1.12 mg/dL 0.55-1.02 [facility] Comment on above: The validity of the calculated GFR & GFRAA in patients over 70 years has not been determined. Clinical correlation is essential. Serum or plasma urea nitroge n measurement (mass/volume)Ordered By: Ganesh Garcia on 08-18-2022 Urea nitrogen [Mass/Vol] 24 mg/dL 7-18 [facility] Thin prep Papanicolaou smear with manual screeningOrdered By: Ganesh Garcia on 08-18-2022 Thin prep Papanicolaou smear with manual screening 5 5-15 [facility] Basophil percentageOrdered B y: Ganesh Garcia on 08-04-2022 Chloride [Moles/Vol] 102 mmol/L 98-107 [facility] Glucose [Mass/Vol] 215 mg/dL 74-[address] [facility] Comment on above: Glucose result great er than or equal to 200 mg/dLsuggests DIABETES MELLITUS per A.D.A. criteria. Potassium [Moles/Vol] 4.1 mmol/L 3.5-5.1 [facility] Sodium [Moles/Vol] 137 mmol/L 136-[address] [facility] WBC (Bld) [#/Vol] 6.8 10*3/uL 4.4-11.[address] [facility] Blood erythrocytes count (nu mber/volume)Ordered By: Ganesh Garcia on 08-04-2022 RBC (Bld) [#/Vol] 3.88 10*6/uL 4.2-5.4 [facility] Blood hemoglobin measurement (mass/volume)Ordered By: Ganesh Garcia on 08-04-2022 Hemoglobin (Bld) [Mass/Vol] 10.8 g/dL 12.0-15.0 [facility] Blood platelet mean volumeOr dered By: Ganesh Garcia on 08-04-2022 Platelet mean volume (Bld) [Entitic vol] 9.9 fL 6.2-12.0 [facility] Determination of erythrocyte mean corpuscular volume (MCV)Ordered By: Gaensh Garcia on 08-04-2022 MCV (RBC) [Entitic vol] 87.9 fL 81-99 [facility] Hematocrit Auto (Bld) [Volum e fraction]Ordered By: Ganesh Garcia on 08-04-2022 Hematocrit (Bld) [Volume fraction] 34.1 % 37-47 [facility] - Chemistry and C hemistry - challengeOrdered By: Ganesh Garcia on 08-04-2022 CO2 [Moles/Vol] 28.0 mmol/L 21.0-32.0 [facility] Urea nitrogen/Creatinine [Mass ratio] 19.1 mg/mg 10-20 [facility] - Hematology and Cell countsOrdered By: Ganesh Garcia on 08-04-2022 Erythrocyte distribution width (RBC) [Entitic vol] 44.9 fL 35.1-43.[address] [facility] Erythrocyte distribution width (RBC) [Ratio] 14.1 % 11.6-14.6 [facility] MCH (RBC) [Entitic mass] 27.8 pg 27.0-32.0 [facility] MCHC Auto (RBC) [Mass/Vol]Or dered By: Ganesh Garcia on 08-04-2022 MCHC (RBC) [Mass/Vol] 31.7 g/dL 32-36 [facility] No Panel InformationOrdered By: Ganesh Garcia on 08-04-2022 Estimated GFR (MDRD) Amer 74 mL/min >60 [facility] Comment on above: GFR Calc Estimated GFR (MDRD) Non-Af Amer 61 mL/min >60 [facility] Comment on above: Non- GFR Calc Platelets bldOrdered By: Robert Garcia on 08-04-2022 Platelets (Bld) [#/Vol] 319 10*3/uL 150-450 [facility] Serum or plasma calcium tai urement (mass/volume)Ordered By: Ganesh Garcia on 08-04-2022 Calcium [Mass/Vol] 8.9 mg/dL 8.5-10.[address] [facility] Serum or plasma creatinine m easurement (mass/volume)Ordered By: Ganesh Garcia on 08-04-2022 Creatinine [Mass/Vol] 0.99 mg/dL 0.55-1.02 [facility] Comment on above: The validity of the calculated GFR & GFRAA in patients over 70 years has not been determined. Clinical correlation is essential. Serum or plasma urea nitroge n measurement (mass/volume)Ordered By: Ganseh Garcia on 08-04-2022 Urea nitrogen [Mass/Vol] 19 mg/dL 7-18 [facility] Thin prep Papanicolaou smear with manual screeningOrdered By: Ganesh Garcia on 08-04-2022 Thin prep Papanicolaou smear with manual screening 7 5-15 [facility] Basophil percentageon 2021 Chloride [Moles/Vol] 100 mmol/L 98-107 [facility] Work Phone: Cholesterol [Mass/Vol] 96 mg/dL <200 [facility] Work Phone: Comment on above: <200 mg/dL Desirable 200-240 mg/dL Borderline >240 mg/dL High Risk Glucose [Mass/Vol] 263 mg/dL 74-[address] [facility] Work Phone: Comment on above: Glucose result great er than or equal to 200 mg/dLsuggests DIABETES MELLITUS per A.D.A. criteria. Potassium [Moles/Vol] 4.3 mmol/L 3.5-5.1 [facility] Work Phone: Sodium [Moles/Vol] 136 mmol/L 136-[address] [facility] Work Phone: Triglyceride [Mass/Vol] 361 mg/dL <199 [facility] Work Phone: Comment on above: The drugs N-Acetylcy steine and Metamizole may falsely depress this assay.Serum Triglycerides Reference Interval Normal <150 mg/dL Borderline high 150 - 199 mg/dL High 200 - 499 mg/dL Very High > or = 500 mg/dL WBC (Bld) [#/Vol] 7.6 10*3/uL 4.4-11.[address] [facility] Work Phone: Blood erythrocytes count (nu mber/volume)on 07-20-2022 RBC (Bld) [#/Vol] 3.77 10*6/uL 4.2-5.4 [facility] Work Phone: Blood hemoglobin measurement (mass/volume)on 07-20-2022 Hemoglobin (Bld) [Mass/Vol] 10.6 g/dL 12.0-15.0 [facility] Work Phone: Blood platelet mean volumeon 07-20-2022 Platelet mean volume (Bld) [Entitic vol] 10.0 fL 6.2-12.0 [facility] Work Phone: Determination of erythrocyte mean corpuscular volume (MCV)on 07-20-2022 MCV (RBC) [Entitic vol] 91.0 fL 81-99 [facility] Work Phone: Hematocrit Auto (Bld) [Volum e fraction]on 07-20-2022 Hematocrit (Bld) [Volume fraction] 34.3 % 37-47 [facility] Work Phone: Laboratory - Chemistry and C hemistry - challengeon 07-20-2022 CO2 [Moles/Vol] 27.0 mmol/L 21.0-32.0 [facility] Work Phone: Urea nitrogen/Creatinine [Mass ratio] 18.3 mg/mg 10-20 [facility] Work Phone: Laboratory - Hematology and Cell countson 07-20-2022 Erythrocyte distribution width (RBC) [Entitic vol] 44.6 fL 35.1-43.[address] [facility] Work Phone: Erythrocyte distribution width (RBC) [Ratio] 13.5 % 11.6-14.6 [facility] Work Phone: MCH (RBC) [Entitic mass] 28.1 pg 27.0-32.0 [facility] Work Phone: MCHC Auto (RBC) [Mass/Vol]on 07-20-2022 MCHC (RBC) [Mass/Vol] 30.9 g/dL 32-36 [facility] Work Phone: No Panel Informationon 07-20 Estimated GFR (MDRD) Amer 70 mL/min >60 [facility] Work Phone: Comment on above: GFR Calc Estimated GFR (MDRD) Non-Af Amer 58 mL/min >60 [facility] Work Phone: Comment on above: Non- GFR Calc Platelets bldon 07-20-2022 Platelets (Bld) [#/Vol] 274 10*3/uL 150-450 [facility] Work Phone: Serum or plasma calcium tai urement (mass/volume)on 07-20-2022 Calcium [Mass/Vol] 8.7 mg/dL 8.5-10.[address] [facility] Work Phone: Serum or plasma cholesterol in HDL measurement (mass/volume)on 07-20-2022 Cholesterol in HDL [Mass/Vol] 17 mg/dL >40 [facility] Work Phone: Comment on above: The drugs N-Acetylcy steine and Metamizole may falsely depress this assay. Reference Range HDL <40 mg/dL Low HDL Cholesterol HDL >or= 60 mg/dL High HDL Cholesterol Serum or plasma cholesterol in VLDL measurement (mass/volume)on 07-20-2022 Cholesterol in VLDL [Mass/Vol] 72 mg/dL 5-40 [facility] Work Phone: Serum or plasma creatinine m easurement (mass/volume)on 07-20-2022 Creatinine [Mass/Vol] 1.04 mg/dL 0.55-1.02 [facility] Work Phone: Comment on above: The validity of the calculated GFR & GFRAA in patients over 70 years has not been determined. Clinical correlation is essential. Serum or plasma low density lipoprotein (LDL) cholesterol measurement (mass/volume)on 07-20-2022 Cholesterol in LDL [Mass/Vol] 7 mg/dL 0-130 [facility] Work Phone: Serum or plasma urea nitroge n measurement (mass/volume)on 07-20-2022 Urea nitrogen [Mass/Vol] 19 mg/dL 7-18 [facility] Work Phone: Thin prep Papanicolaou smear with manual screeningon 07-20-2022 Thin prep Papanicolaou smear with manual screening 9 5-15 [facility] Work Phone: Basophil percentageon 2021 Basophil percentage 25-50 SEEN /hpf 0-5 [facility] Work Phone: Bilirubin Test strip Ql (U)o n 07-13-2022 Bilirubin Ql (U) Negative Negative [facility] Work Phone: Ketones Test strip Ql (U)on 07-13-2022 Ketones Ql (U) Negative Negative [facility] Work Phone: Mucus LM Ql (Urine sed)on Mucus Ql (Urine sed) 0 SEEN /hpf [facility] Work Phone: Nitrite Test strip Ql (U)on 07-13-2022 Nitrite Ql (U) Negative Negative [facility] Work Phone: Protein Test strip Ql (U)on 07-13-2022 Protein Ql (U) Negative Negative [facility] Work Phone: Squamous epithelial cells de tection in urine sediment by light microscopyon 07-13-2022 Epithelial cells.squamous LM Ql (Urine sed) 0-5 SEEN /hpf 5-10 [facility] Work Phone: Urine blood detectionon 06-25 RBC Ql (U) 10 /ul Negative [facility] Work Phone: RBC Ql (U) 0-5 SEEN /hpf 0-5 [facility] Work Phone: Urine clarityon 07-13-2022 Clarity (U) Sl. Cloudy Clear [facility] Work Phone: Urine color determinationon 07-13-2022 Color (U) Yellow Yellow [facility] Work Phone: Urine glucose detectionon Glucose Ql (U) 50 mg/dl Normal [facility] Work Phone: Urine leukocyte esterase det ection by dipstickon 07-13-2022 Leukocyte esterase Test strip Ql (U) 500 /ul Negative [facility] Work Phone: Urine pHon 07-13-2022 pH (U) 6.0 [pH] 5.0 - 8.0 [facility] Work Phone: Urine sediment bacteria coun t by microscopy (number/high power field)on 07-13-2022 Bacteria LM.HPF (Urine sed) [#/Area] 2 /[HPF] None Seen [facility] Work Phone: Urine specific gravity measu rementon 07-13-2022 Specific gravity (U) [Rel density] 1.010 1.002-1.03 0 [facility] Work Phone: Urobilinogen Auto test strip Ql (U)on 07-13-2022 Urobilinogen Ql (U) Normal mg/dl Normal [facility] Work Phone: Basophil percentageon 2021 Chloride [Moles/Vol] 101 mmol/L 98-107 [facility] Work Phone: Glucose [Mass/Vol] 240 mg/dL 74-[address] [facility] Work Phone: Comment on above: Glucose result great er than or equal to 200 mg/dLsuggests DIABETES MELLITUS per A.D.A. criteria. Potassium [Moles/Vol] 3.9 mmol/L 3.5-5.1 [facility] Work Phone: Sodium [Moles/Vol] 136 mmol/L 136-[address] [facility] Work Phone: WBC (Bld) [#/Vol] 7.8 10*3/uL 4.4-11.[address] [facility] Work Phone: Blood erythrocytes count (nu mber/volume)on 07-07-2022 RBC (Bld) [#/Vol] 3.88 10*6/uL 4.2-5.4 [facility] Work Phone: Blood hemoglobin measurement (mass/volume)on 07-07-2022 Hemoglobin (Bld) [Mass/Vol] 11.1 g/dL 12.0-15.0 [facility] Work Phone: Blood platelet mean volumeon 07-07-2022 Platelet mean volume (Bld) [Entitic vol] 9.9 fL 6.2-12.0 [facility] Work Phone: Determination of erythrocyte mean corpuscular volume (MCV)on 07-07-2022 MCV (RBC) [Entitic vol] 89.4 fL 81-99 [facility] Work Phone: Hematocrit Auto (Bld) [Volum e fraction]on 07-07-2022 Hematocrit (Bld) [Volume fraction] 34.7 % 37-47 [facility] Work Phone: Laboratory - Chemistry and C hemistry - challengeon 07-07-2022 CO2 [Moles/Vol] 26.0 mmol/L 21.0-32.0 [facility] Work Phone: Urea nitrogen/Creatinine [Mass ratio] 18.7 mg/mg 10-20 [facility] Work Phone: Laboratory - Hematology and Cell countson 07-07-2022 Erythrocyte distribution width (RBC) [Entitic vol] 44.2 fL 35.1-43.[address] [facility] Work Phone: Erythrocyte distribution width (RBC) [Ratio] 13.5 % 11.6-14.6 [facility] Work Phone: MCH (RBC) [Entitic mass] 28.6 pg 27.0-32.0 [facility] Work Phone: MCHC Auto (RBC) [Mass/Vol]on 07-07-2022 MCHC (RBC) [Mass/Vol] 32.0 g/dL 32-36 [facility] Work Phone: No Panel Informationon 07-07 Estimated GFR (MDRD) Amer 68 mL/min >60 [facility] Work Phone: Comment on above: GFR Calc Estimated GFR (MDRD) Non-Af Amer 56 mL/min >60 [facility] Work Phone: Comment on above: Non- GFR Calc Platelets bldon 07-07-2022 Platelets (Bld) [#/Vol] 310 10*3/uL 150-450 [facility] Work Phone: Serum or plasma calcium tai urement (mass/volume)on 07-07-2022 Calcium [Mass/Vol] 9.0 mg/dL 8.5-10.1 [facility] Work Phone: Serum or plasma creatinine m easurement (mass/volume)on 07-07-2022 Creatinine [Mass/Vol] 1.07 mg/dL 0.55-1.02 [facility] Work Phone: Comment on above: The validity of the calculated GFR & GFRAA in patients over 70 years has not been determined. Clinical correlation is essential. Serum or plasma urea nitroge n measurement (mass/volume)on 07-07-2022 Urea nitrogen [Mass/Vol] 20 mg/dL 7-18 [facility] Work Phone: Thin prep Papanicolaou smear with manual screeningon 07-07-2022 Thin prep Papanicolaou smear with manual screening 9 5-15 [facility] Work Phone: No Panel Informationon 07-03 Thyroid Stimulating Hormone (TSH) 1.98 uIU/mL 0.358-3.74 [facility] Work Phone: No Panel Informationon 07-01 Thyroid Stimulating Hormone (TSH) 1.82 uIU/mL 0.358-3.74 [facility] Work Phone: Whole blood hemoglobin A1c/t otal hemoglobin ratio (mass fraction)on 07-01-2022 HbA1c (Bld) [Mass fraction] 7.8 % 3.8-5.6 [facility] Work Phone: Comment on above: Normal < 5.7 % Predi abetic 5.7 - 6.4 % Diabetic >or= 6.5 % Please note range changes. Basophil percentageon 2021 Chloride [Moles/Vol] 99 mmol/L 98-107 [facility] Work Phone: Glucose [Mass/Vol] 193 mg/dL 74-[address] [facility] Work Phone: Comment on above: Fasting Glucose resu lt greater than or equal to 126 mg/dL suggests DIABETES MELLITUS per A.D.A. criteria. Potassium [Moles/Vol] 4.1 mmol/L 3.5-5.1 [facility] Work Phone: Sodium [Moles/Vol] 137 mmol/L 136-[address] [facility] Work Phone: WBC (Bld) [#/Vol] 7.4 10*3/uL 4.4-11.[address] [facility] Work Phone: Blood erythrocytes count (nu mber/volume)on 06-23-2022 RBC (Bld) [#/Vol] 3.60 10*6/uL 4.2-5.4 [facility] Work Phone: Blood hemoglobin measurement (mass/volume)on 06-23-2022 Hemoglobin (Bld) [Mass/Vol] 10.6 g/dL 12.0-15.0 [facility] Work Phone: Blood platelet mean volumeon 06-23-2022 Platelet mean volume (Bld) [Entitic vol] 9.5 fL 6.2-12.0 [facility] Work Phone: Determination of erythrocyte mean corpuscular volume (MCV)on 06-23-2022 MCV (RBC) [Entitic vol] 89.7 fL 81-99 [facility] Work Phone: Hematocrit Auto (Bld) [Volum e fraction]on 06-23-2022 Hematocrit (Bld) [Volume fraction] 32.3 % 37-47 [facility] Work Phone: Laboratory - Chemistry and C hemistry - challengeon 06-23-2022 CO2 [Moles/Vol] 28.0 mmol/L 21.0-32.0 [facility] Work Phone: Urea nitrogen/Creatinine [Mass ratio] 19.3 mg/mg 10-20 [facility] Work Phone: Laboratory - Hematology and Cell countson 06-23-2022 Erythrocyte distribution width (RBC) [Entitic vol] 43.2 fL 35.1-43.[address] [facility] Work Phone: Erythrocyte distribution width (RBC) [Ratio] 13.2 % 11.6-14.6 [facility] Work Phone: MCH (RBC) [Entitic mass] 29.4 pg 27.0-32.0 [facility] Work Phone: MCHC Auto (RBC) [Mass/Vol]on 06-23-2022 MCHC (RBC) [Mass/Vol] 32.8 g/dL 32-36 [facility] Work Phone: No Panel Informationon 06-23 Estimated GFR (MDRD) Amer 63 mL/min >60 [facility] Work Phone: Comment on above: GFR Calc Estimated GFR (MDRD) Non-Af Amer 52 mL/min >60 [facility] Work Phone: Comment on above: Non- GFR Calc Platelets bldon 06-23-2022 Platelets (Bld) [#/Vol] 348 10*3/uL 150-450 [facility] Work Phone: Serum or plasma calcium tai urement (mass/volume)on 06-23-2022 Calcium [Mass/Vol] 8.8 mg/dL 8.5-10.[address] [facility] Work Phone: Serum or plasma creatinine m easurement (mass/volume)on 06-23-2022 Creatinine [Mass/Vol] 1.14 mg/dL 0.55-1.02 [facility] Work Phone: Comment on above: The validity of the calculated GFR & GFRAA in patients over 70 years has not been determined. Clinical correlation is essential. Serum or plasma urea nitroge n measurement (mass/volume)on 06-23-2022 Urea nitrogen [Mass/Vol] 22 mg/dL 7-18 [facility] Work Phone: Thin prep Papanicolaou smear with manual screeningon 06-23-2022 Thin prep Papanicolaou smear with manual screening 10 5-15 [facility] Work Phone: Absolute lymphocyte counton 06-12-2022 Lymphocytes Auto (Unsp spec) [#/Vol] 2.71 10*3/uL 0.83-4.51 [facility] Work Phone: Basophil percentageon 2021 Basophils/100 WBC (Bld) 0.7 % 0-1 [facility] Work Phone: Chloride [Moles/Vol] 99 mmol/L 98-107 [facility] Work Phone: Eosinophils/100 WBC (Bld) 1.9 % 0-5 [facility] Work Phone: Glucose [Mass/Vol] 244 mg/dL 74-[address] [facility] Work Phone: Comment on above: Glucose result great er than or equal to 200 mg/dLsuggests DIABETES MELLITUS per A.D.A. criteria. Neutrophils (Bld) [#/Vol] 4.0 10*3/uL 2.0-7.7 [facility] Work Phone: Neutrophils/100 WBC (Bld) 53.9 % 47-70 [facility] Work Phone: Potassium [Moles/Vol] 4.1 mmol/L 3.5-5.1 [facility] Work Phone: Sodium [Moles/Vol] 135 mmol/L 136-[address] [facility] Work Phone: WBC (Bld) [#/Vol] 7.5 10*3/uL 4.4-11.[address] [facility] Work Phone: Blood erythrocytes count (nu mber/volume)on 06-12-2022 RBC (Bld) [#/Vol] 4.04 10*6/uL 4.2-5.4 [facility] Work Phone: Blood hemoglobin measurement (mass/volume)on 06-12-2022 Hemoglobin (Bld) [Mass/Vol] 11.9 g/dL 12.0-15.0 [facility] Work Phone: Blood lymphocytes/100 leukoc yteson 06-12-2022 Lymphocytes/100 WBC (Bld) 36.3 % 19-41 [facility] Work Phone: Blood monocytes/100 leukocyt eson 06-12-2022 Monocytes/100 WBC (Bld) 6.7 % 0-10 [facility] Work Phone: Blood platelet mean volumeon 06-12-2022 Platelet mean volume (Bld) [Entitic vol] 9.6 fL 6.2-12.0 [facility] Work Phone: Determination of erythrocyte mean corpuscular volume (MCV)on 06-12-2022 MCV (RBC) [Entitic vol] 90.8 fL 81-99 [facility] Work Phone: Hematocrit Auto (Bld) [Volum e fraction]on 06-12-2022 Hematocrit (Bld) [Volume fraction] 36.7 % 37-47 [facility] Work Phone: Laboratory - Chemistry and C hemistry - challengeon 06-12-2022 CO2 [Moles/Vol] 28.0 mmol/L 21.0-32.0 [facility] Work Phone: Natriuretic peptide B (Bld) [Mass/Vol] 9.7 pg/mL 0-100 [facility] Work Phone: Urea nitrogen/Creatinine [Mass ratio] 20.9 mg/mg 10-20 [facility] Work Phone: Laboratory - Hematology and Cell countson 06-12-2022 Erythrocyte distribution width (RBC) [Entitic vol] 45.7 fL 35.1-43.[address] [facility] Work Phone: Erythrocyte distribution width (RBC) [Ratio] 13.8 % 11.6-14.6 [facility] Work Phone: Immature granulocytes/100 WBC (Bld) 0.500 % 0.0-0.9 [facility] Work Phone: Comment on above: IG% - Immature Granu locytes (promyelocytes, myelocytes and metamyelocytes) > 1% indicates that a LEFT SHIFT is Present. MCH (RBC) [Entitic mass] 29.5 pg 27.0-32.0 [facility] Work Phone: Nucleated RBC/100 WBC (Bld) [Ratio] 0 % 0-5 [facility] Work Phone: MCHC Auto (RBC) [Mass/Vol]on 06-12-2022 MCHC (RBC) [Mass/Vol] 32.4 g/dL 32-36 [facility] Work Phone: No Panel Informationon 06-12 Estimated GFR (MDRD) Amer 65 mL/min >60 [facility] Work Phone: Comment on above: GFR Calc Estimated GFR (MDRD) Non-Af Amer 54 mL/min >60 [facility] Work Phone: Comment on above: Non- GFR Calc Platelets bldon 06-12-2022 Platelets (Bld) [#/Vol] 323 10*3/uL 150-450 [facility] Work Phone: Serum or plasma calcium tai urement (mass/volume)on 06-12-2022 Calcium [Mass/Vol] 8.7 mg/dL 8.5-10.[address] [facility] Work Phone: Serum or plasma creatinine m easurement (mass/volume)on 06-12-2022 Creatinine [Mass/Vol] 1.10 mg/dL 0.55-1.02 [facility] Work Phone: Comment on above: The validity of the calculated GFR & GFRAA in patients over 70 years has not been determined. Clinical correlation is essential. Serum or plasma urea nitroge n measurement (mass/volume)on 06-12-2022 Urea nitrogen [Mass/Vol] 23 mg/dL 7-18 [facility] Work Phone: Thin prep Papanicolaou smear with manual screeningon 06-12-2022 Thin prep Papanicolaou smear with manual screening 8 5-15 [facility] Work Phone: Basophil percentageon 2021 Chloride [Moles/Vol] 103 mmol/L 98-107 [facility] Work Phone: Glucose [Mass/Vol] 255 mg/dL 74-[address] [facility] Work Phone: Comment on above: Glucose result great er than or equal to 200 mg/dLsuggests DIABETES MELLITUS per A.D.A. criteria. Potassium [Moles/Vol] 3.7 mmol/L 3.5-5.1 [facility] Work Phone: Sodium [Moles/Vol] 138 mmol/L 136-[address] [facility] Work Phone: WBC (Bld) [#/Vol] 6.8 10*3/uL 4.4-11.[address] [facility] Work Phone: Blood erythrocytes count (nu mber/volume)on 06-09-2022 RBC (Bld) [#/Vol] 3.50 10*6/uL 4.2-5.4 [facility] Work Phone: Blood hemoglobin measurement (mass/volume)on 06-09-2022 Hemoglobin (Bld) [Mass/Vol] 10.5 g/dL 12.0-15.0 [facility] Work Phone: Blood platelet mean volumeon 06-09-2022 Platelet mean volume (Bld) [Entitic vol] 9.7 fL 6.2-12.0 [facility] Work Phone: Determination of erythrocyte mean corpuscular volume (MCV)on 06-09-2022 MCV (RBC) [Entitic vol] 93.1 fL 81-99 [facility] Work Phone: Hematocrit Auto (Bld) [Volum e fraction]on 06-09-2022 Hematocrit (Bld) [Volume fraction] 32.6 % 37-47 [facility] Work Phone: Laboratory - Chemistry and C hemistry - challengeon 06-09-2022 CO2 [Moles/Vol] 27.0 mmol/L 21.0-32.0 [facility] Work Phone: Urea nitrogen/Creatinine [Mass ratio] 16.8 mg/mg 10-20 [facility] Work Phone: Laboratory - Hematology and Cell countson 06-09-2022 Erythrocyte distribution width (RBC) [Entitic vol] 47.2 fL 35.1-43.[address] [facility] Work Phone: Erythrocyte distribution width (RBC) [Ratio] 13.8 % 11.6-14.6 [facility] Work Phone: MCH (RBC) [Entitic mass] 30.0 pg 27.0-32.0 [facility] Work Phone: MCHC Auto (RBC) [Mass/Vol]on 06-09-2022 MCHC (RBC) [Mass/Vol] 32.2 g/dL 32-36 [facility] Work Phone: No Panel Informationon 06-09 Estimated GFR (MDRD) Amer 68 mL/min >60 [facility] Work Phone: Comment on above: GFR Calc Estimated GFR (MDRD) Non-Af Amer 56 mL/min >60 [facility] Work Phone: Comment on above: Non- GFR Calc Platelets bldon 06-09-2022 Platelets (Bld) [#/Vol] 229 10*3/uL 150-450 [facility] Work Phone: Serum or plasma calcium tai urement (mass/volume)on 06-09-2022 Calcium [Mass/Vol] 8.6 mg/dL 8.5-10.[address] [facility] Work Phone: Serum or plasma creatinine m easurement (mass/volume)on 06-09-2022 Creatinine [Mass/Vol] 1.07 mg/dL 0.55-1.02 [facility] Work Phone: Comment on above: The validity of the calculated GFR & GFRAA in patients over 70 years has not been determined. Clinical correlation is essential. Serum or plasma urea nitroge n measurement (mass/volume)on 06-09-2022 Urea nitrogen [Mass/Vol] 18 mg/dL 7-18 [facility] Work Phone: Thin prep Papanicolaou smear with manual screeningon 06-09-2022 Thin prep Papanicolaou smear with manual screening 8 5-15 [facility] Work Phone: Basophil percentageon 2021 Chloride [Moles/Vol] 101 mmol/L 98-107 [facility] Work Phone: Glucose [Mass/Vol] 261 mg/dL 74-[address] [facility] Work Phone: Comment on above: Glucose result great er than or equal to 200 mg/dLsuggests DIABETES MELLITUS per A.D.A. criteria. Potassium [Moles/Vol] 4.0 mmol/L 3.5-5.1 [facility] Work Phone: Sodium [Moles/Vol] 134 mmol/L 136-[address] [facility] Work Phone: WBC (Bld) [#/Vol] 6.3 10*3/uL 4.4-11.[address] [facility] Work Phone: Blood erythrocytes count (nu mber/volume)on 05-26-2022 RBC (Bld) [#/Vol] 3.47 10*6/uL 4.2-5.4 [facility] Work Phone: Blood hemoglobin measurement (mass/volume)on 05-26-2022 Hemoglobin (Bld) [Mass/Vol] 10.6 g/dL 12.0-15.0 [facility] Work Phone: Blood platelet mean volumeon 05-26-2022 Platelet mean volume (Bld) [Entitic vol] 9.6 fL 6.2-12.0 [facility] Work Phone: Determination of erythrocyte mean corpuscular volume (MCV)on 05-26-2022 MCV (RBC) [Entitic vol] 92.2 fL 81-99 [facility] Work Phone: Hematocrit Auto (Bld) [Volum e fraction]on 05-26-2022 Hematocrit (Bld) [Volume fraction] 32.0 % 37-47 [facility] Work Phone: Laboratory - Chemistry and C hemistry - challengeon 05-26-2022 CO2 [Moles/Vol] 29.0 mmol/L 21.0-32.0 [facility] Work Phone: Urea nitrogen/Creatinine [Mass ratio] 15.7 mg/mg 10-20 [facility] Work Phone: Laboratory - Hematology and Cell countson 05-26-2022 Erythrocyte distribution width (RBC) [Entitic vol] 48.0 fL 35.1-43.[address] [facility] Work Phone: Erythrocyte distribution width (RBC) [Ratio] 14.3 % 11.6-14.6 [facility] Work Phone: MCH (RBC) [Entitic mass] 30.5 pg 27.0-32.0 [facility] Work Phone: MCHC Auto (RBC) [Mass/Vol]on 05-26-2022 MCHC (RBC) [Mass/Vol] 33.1 g/dL 32-36 [facility] Work Phone: No Panel Informationon 05-26 Estimated GFR (MDRD) Amer 55 mL/min >60 [facility] Work Phone: Comment on above: GFR Calc Estimated GFR (MDRD) Non-Af Amer 46 mL/min >60 [facility] Work Phone: Comment on above: Non- GFR Calc Platelets bldon 05-26-2022 Platelets (Bld) [#/Vol] 267 10*3/uL 150-450 [facility] Work Phone: Serum or plasma calcium tai urement (mass/volume)on 05-26-2022 Calcium [Mass/Vol] 8.9 mg/dL 8.5-10.1 [facility] Work Phone: Serum or plasma creatinine m easurement (mass/volume)on 05-26-2022 Creatinine [Mass/Vol] 1.27 mg/dL 0.55-1.02 [facility] Work Phone: Comment on above: The validity of the calculated GFR & GFRAA in patients over 70 years has not been determined. Clinical correlation is essential. Serum or plasma urea nitroge n measurement (mass/volume)on 05-26-2022 Urea nitrogen [Mass/Vol] 20 mg/dL 7-18 [facility] Work Phone: Thin prep Papanicolaou smear with manual screeningon 05-26-2022 Thin prep Papanicolaou smear with manual screening 4 5-15 [facility] Work Phone: Absolute lymphocyte counton 05-21-2022 Lymphocytes Auto (Unsp spec) [#/Vol] 2.91 10*3/uL 0.83-4.51 [facility] Work Phone: Basophil percentageon 2021 Basophils/100 WBC (Bld) 0.9 % 0-1 [facility] Work Phone: Bilirubin [Mass/Vol] 0.20 mg/dL 0.20-1.00 [facility] Work Phone: Comment on above: For patients on eltr ombopag therapy, use of Dimension Bath TBIL is not recommended. Chloride [Moles/Vol] 100 mmol/L 98-107 [facility] Work Phone: Cholesterol [Mass/Vol] 244 mg/dL <200 [facility] Work Phone: Comment on above: <200 mg/dL Desirable 200-240 mg/dL Borderline >240 mg/dL High Risk Eosinophils/100 WBC (Bld) 2.1 % 0-5 [facility] Work Phone: Glucose [Mass/Vol] 197 mg/dL 74-[address] [facility] Work Phone: Comment on above: Fasting Glucose resu lt greater than or equal to 126 mg/dL suggests DIABETES MELLITUS per A.D.A. criteria. Neutrophils (Bld) [#/Vol] 2.3 10*3/uL 2.0-7.7 [facility] Work Phone: Neutrophils/100 WBC (Bld) 39.7 % 47-70 [facility] Work Phone: Potassium [Moles/Vol] 4.3 mmol/L 3.5-5.1 [facility] Work Phone: Protein [Mass/Vol] 6.9 g/dL 6.4-8.[address] [facility] Work Phone: Sodium [Moles/Vol] 136 mmol/L 136-[address] [facility] Work Phone: Triglyceride [Mass/Vol] 337 mg/dL <199 [facility] Work Phone: Comment on above: The drugs N-Acetylcy steine and Metamizole may falsely depress this assay.Serum Triglycerides Reference Interval Normal <150 mg/dL Borderline high 150 - 199 mg/dL High 200 - 499 mg/dL Very High > or = 500 mg/dL WBC (Bld) [#/Vol] 5.7 10*3/uL 4.4-11.[address] [facility] Work Phone: Blood erythrocytes count (nu mber/volume)on 05-21-2022 RBC (Bld) [#/Vol] 3.57 10*6/uL 4.2-5.4 [facility] Work Phone: Blood hemoglobin measurement (mass/volume)on 05-21-2022 Hemoglobin (Bld) [Mass/Vol] 10.8 g/dL 12.0-15.0 [facility] Work Phone: Blood lymphocytes/100 leukoc yteson 05-21-2022 Lymphocytes/100 WBC (Bld) 51.4 % 19-41 [facility] Work Phone: Blood monocytes/100 leukocyt eson 05-21-2022 Monocytes/100 WBC (Bld) 5.5 % 0-10 [facility] Work Phone: Blood platelet mean volumeon 05-21-2022 Platelet mean volume (Bld) [Entitic vol] 9.2 fL 6.2-12.0 [facility] Work Phone: Determination of erythrocyte mean corpuscular volume (MCV)on 05-21-2022 MCV (RBC) [Entitic vol] 92.4 fL 81-99 [facility] Work Phone: Glucose Glucometer (BldC) [M ass/Vol]on 05-21-2022 Glucose [Mass/Vol] 164 mg/dL 74-[address] [facility] Work Phone: Comment on above: MANAGEMENT OF PATIEN T CARE PER NURSING PROTOCOL Hematocrit Auto (Bld) [Volum e fraction]on 05-21-2022 Hematocrit (Bld) [Volume fraction] 33.0 % 37-47 [facility] Work Phone: Laboratory - Chemistry and C hemistry - challengeon 05-21-2022 ALP [Catalytic activity/Vol] 76 U/L 45-117 [facility] Work Phone: ALT [Catalytic activity/Vol] 83 U/L 13-56 [facility] Work Phone: CO2 [Moles/Vol] 31.0 mmol/L 21.0-32.0 [facility] Work Phone: Free T4 [Mass/Vol] 0.14 ng/dL 0.76-1.[address] [facility] Work Phone: Globulin (S) [Mass/Vol] 3.8 g/dL 2.2-4.2 [facility] Work Phone: Urea nitrogen/Creatinine [Mass ratio] 15.0 mg/mg 10-20 [facility] Work Phone: Laboratory - Hematology and Cell countson 05-21-2022 Erythrocyte distribution width (RBC) [Entitic vol] 48.4 fL 35.1-43.[address] [facility] Work Phone: Erythrocyte distribution width (RBC) [Ratio] 14.2 % 11.6-14.6 [facility] Work Phone: Immature granulocytes/100 WBC (Bld) 0.400 % 0.0-0.9 [facility] Work Phone: Comment on above: IG% - Immature Granu locytes (promyelocytes, myelocytes and metamyelocytes) > 1% indicates that a LEFT SHIFT is Present. MCH (RBC) [Entitic mass] 30.3 pg 27.0-32.0 [facility] Work Phone: Nucleated RBC/100 WBC (Bld) [Ratio] 0 % 0-5 [facility] Work Phone: MCHC Auto (RBC) [Mass/Vol]on 05-21-2022 MCHC (RBC) [Mass/Vol] 32.7 g/dL 32-36 [facility] Work Phone: No Panel Informationon 05-21 Estimated Creatinine Clearance Calc 36.71 ml/min [facility] Work Phone: Estimated GFR (MDRD) Amer 59 mL/min >60 [facility] Work Phone: Comment on above: GFR Calc Estimated GFR (MDRD) Non-Af Amer 49 mL/min >60 [facility] Work Phone: Comment on above: Non- GFR Calc Troponin I High Sensitivity 32 pg/mL 3.0-54.0 [facility] Work Phone: Comment on above: Please Note: New Carolann t Units and Gender Specific Reference Ranges. For more information see Policy Stat Procedure Bath High Sensitivity Troponin (TNIH) and attachments. Troponin I High Sensitivity 32 pg/mL 3.0-54.0 [facility] Work Phone: Comment on above: Please Note: New Carolann t Units and Gender Specific Reference Ranges. For more information see Policy Stat Procedure Bath High Sensitivity Troponin (TNIH) and attachments. Platelets bldon 05-21-2022 Platelets (Bld) [#/Vol] 240 10*3/uL 150-450 [facility] Work Phone: Serum or plasma albumin tai urement (mass/volume)on 05-21-2022 Albumin [Mass/Vol] 3.1 g/dL 3.2-5.[address] [facility] Work Phone: Serum or plasma albumin/glob ulin mass ratioon 05-21-2022 Albumin/Globulin [Mass ratio] 0.8 {ratio} 0.9-2.4 [facility] Work Phone: Serum or plasma calcium tai urement (mass/volume)on 05-21-2022 Calcium [Mass/Vol] 8.6 mg/dL 8.5-10.[address] [facility] Work Phone: Serum or plasma cholesterol in HDL measurement (mass/volume)on 05-21-2022 Cholesterol in HDL [Mass/Vol] 31 mg/dL >40 [facility] Work Phone: Comment on above: The drugs N-Acetylcy steine and Metamizole may falsely depress this assay. Reference Range HDL <40 mg/dL Low HDL Cholesterol HDL >or= 60 mg/dL High HDL Cholesterol Serum or plasma cholesterol in VLDL measurement (mass/volume)on 05-21-2022 Cholesterol in VLDL [Mass/Vol] 67 mg/dL 5-40 [facility] Work Phone: Serum or plasma creatinine m easurement (mass/volume)on 05-21-2022 Creatinine [Mass/Vol] 1.20 mg/dL 0.55-1.02 [facility] Work Phone: Comment on above: The validity of the calculated GFR & GFRAA in patients over 70 years has not been determined. Clinical correlation is essential. Serum or plasma low density lipoprotein (LDL) cholesterol measurement (mass/volume)on 05-21-2022 Cholesterol in LDL [Mass/Vol] 146 mg/dL 0-130 [facility] Work Phone: [phone] Serum or plasma urea nitroge n measurement (mass/volume)on 05-21-2022 Urea nitrogen [Mass/Vol] 18 mg/dL 7-18 [facility] Work Phone: Thin prep Papanicolaou smear with manual screeningon 05-21-2022 Thin prep Papanicolaou smear with manual screening 42 U/L 15-37 [facility] Work Phone: Thin prep Papanicolaou smear with manual screening 5 5-15 [facility] Work Phone: Absolute lymphocyte counton 05-20-2022 Lymphocytes Auto (Unsp spec) [#/Vol] 2.77 10*3/uL 0.83-4.51 [facility] Work Phone: [phone] Basophil percentageon 2021 Basophils/100 WBC (Bld) 0.9 % 0-1 [facility] Work Phone: Chloride [Moles/Vol] 99 mmol/L 98-107 [facility] Work Phone: Eosinophils/100 WBC (Bld) 2.0 % 0-5 [facility] Work Phone: Glucose [Mass/Vol] 322 mg/dL 74-[address] [facility] Work Phone: Comment on above: Glucose result great er than or equal to 200 mg/dLsuggests DIABETES MELLITUS per A.D.A. criteria. Neutrophils (Bld) [#/Vol] 3.3 10*3/uL 2.0-7.7 [facility] Work Phone: Neutrophils/100 WBC (Bld) 49.7 % 47-70 [facility] Work Phone: Potassium [Moles/Vol] 4.3 mmol/L 3.5-5.1 [facility] Work Phone: [phone] Sodium [Moles/Vol] 135 mmol/L 136-[address] [facility] Work Phone: WBC (Bld) [#/Vol] 6.6 10*3/uL 4.4-11.0 [facility]: Blood erythrocytes count (nu mber/volume)on 05-20-2022 RBC (Bld) [#/Vol] 3.54 10*6/uL 4.2-5.4 [facility] Work Phone: Blood hemoglobin measurement (mass/volume)on 05-20-2022 Hemoglobin (Bld) [Mass/Vol] 10.9 g/dL 12.0-15.0 [facility] Work Phone: Blood lymphocytes/100 leukoc yteson 05-20-2022 Lymphocytes/100 WBC (Bld) 42.3 % 19-41 [facility] Work Phone: Blood monocytes/100 leukocyt eson 05-20-2022 Monocytes/100 WBC (Bld) 4.6 % 0-10 [facility] Work Phone: Blood platelet mean volumeon 05-20-2022 Platelet mean volume (Bld) [Entitic vol] 9.5 fL 6.2-12.0 [facility] Work Phone: Determination of erythrocyte mean corpuscular volume (MCV)on 05-20-2022 MCV (RBC) [Entitic vol] 91.5 fL 81-99 [facility] Work Phone: Hematocrit Auto (Bld) [Volum e fraction]on 05-20-2022 Hematocrit (Bld) [Volume fraction] 32.4 % 37-47 [facility] Work Phone: [phone] INR in Blood by Coagulation assayon 05-20-2022 INR Coag (Bld) [Relative time] 1.0 {INR} [facility] Work Phone: Laboratory - Chemistry and C hemistry - challengeon 05-20-2022 CO2 [Moles/Vol] 30.0 mmol/L 21.0-32.0 [facility] Work Phone: Magnesium [Mass/Vol] 2.1 mg/dL 1.6-2.6 [facility] Work Phone: Urea nitrogen/Creatinine [Mass ratio] 15.4 mg/mg 10-20 [facility] Work Phone: Laboratory - Coagulationon 0 05-20-2022 aPTT Coag (Bld) [Time] 29.0 s 24.1-36.2 [facility] Work Phone: PT Coag (PPP) [Time] 13.1 s 11.7-14.9 [facility] Work Phone: Laboratory - Drug toxicology on 05-20-2022 Amphetamines Ql (U) Negative <1000 ng/mL [facility] Work Phone: Benzodiazepines Ql (U) Positive < 200 ng/mL [facility] Work Phone: Cannabinoids Screen Ql (U) Negative < 50 ng/mL [facility] Work Phone: Cocaine Ql (U) Negative < 300 ng/mL [facility] Work Phone: Opiates Ql (U) Negative < 300 ng/mL [facility] Work Phone: Laboratory - Hematology and Cell countson 05-20-2022 Erythrocyte distribution width (RBC) [Entitic vol] 47.6 fL 35.1-43.[address] [facility] Work Phone: Erythrocyte distribution width (RBC) [Ratio] 14.3 % 11.6-14.6 [facility] Work Phone: Immature granulocytes/100 WBC (Bld) 0.500 % 0.0-0.9 [facility] Work Phone: Comment on above: IG% - Immature Granu locytes (promyelocytes, myelocytes and metamyelocytes) > 1% indicates that a LEFT SHIFT is Present. MCH (RBC) [Entitic mass] 30.8 pg 27.0-32.0 [facility] Work Phone: Nucleated RBC/100 WBC (Bld) [Ratio] 0 % 0-5 [facility] Work Phone: MCHC Auto (RBC) [Mass/Vol]on 05-20-2022 MCHC (RBC) [Mass/Vol] 33.6 g/dL 32-36 [facility] Work Phone: No Panel Informationon 05-20 MDMA (Ecstasy) Screen Negative < 500 ng/mL [facility] Work Phone: Urine Barbiturates Screen Negative < 200 ng/mL [facility] Work Phone: Urine Drug Screen Comment [facility] Work Phone: Comment on above: CONFIRMATORY TESTING [...] Urine Methadone Screen Negative < 300 ng/mL [facility] Work Phone: Estimated Creatinine Clearance Calc 35.81 ml/min [facility] Work Phone: Estimated GFR (MDRD) Amer 58 mL/min >60 [facility] Work Phone: Comment on above: GFR Calc Estimated GFR (MDRD) Non-Af Amer 48 mL/min >60 [facility] Work Phone: Comment on above: Non- GFR Calc Thyroid Stimulating Hormone (TSH) 109.00 uIU/mL 0.358-3.74 [facility] Work Phone: Platelets bldon 05-20-2022 Platelets (Bld) [#/Vol] 291 10*3/uL 150-450 [facility] Work Phone: Serum or plasma calcium tai urement (mass/volume)on 07-27-2022 Calcium [Mass/Vol] 9.2 mg/dL 8.5-10.[address] [facility] Work Phone: Serum or plasma creatinine m easurement (mass/volume)on 05-20-2022 Creatinine [Mass/Vol] 1.23 mg/dL 0.55-1.02 [facility] Work Phone: Comment on above: The validity of the calculated GFR & GFRAA in patients over 70 years has not been determined. Clinical correlation is essential. Serum or plasma urea nitroge n measurement (mass/volume)on 05-20-2022 Urea nitrogen [Mass/Vol] 19 mg/dL 7-18 [facility] Work Phone: Thin prep Papanicolaou smear with manual screeningon 05-20-2022 Thin prep Papanicolaou smear with manual screening 6 5-15 [facility] Work Phone: Urine phencyclidine (PCP) de tectionon 05-20-2022 Phencyclidine Ql (U) Negative < 25 ng/mL [facility] Work Phone: Basophil percentageon 2021 Chloride [Moles/Vol] 99 mmol/L 98-107 [facility] Work Phone: Glucose [Mass/Vol] 161 mg/dL 74-[address] [facility] Work Phone: Comment on above: Fasting Glucose resu lt greater than or equal to 126 mg/dL suggests DIABETES MELLITUS per A.D.A. criteria. Potassium [Moles/Vol] 4.0 mmol/L 3.5-5.1 [facility] Work Phone: Sodium [Moles/Vol] 135 mmol/L 136-[address] [facility] Work Phone: WBC (Bld) [#/Vol] 8.6 10*3/uL 4.4-11.[address] [facility] Work Phone: Blood erythrocytes count (nu mber/volume)on 05-12-2022 RBC (Bld) [#/Vol] 3.83 10*6/uL 4.2-5.4 [facility] Work Phone: Blood hemoglobin measurement (mass/volume)on 05-12-2022 Hemoglobin (Bld) [Mass/Vol] 11.7 g/dL 12.0-15.0 [facility] Work Phone: Blood platelet mean volumeon 05-12-2022 Platelet mean volume (Bld) [Entitic vol] 9.0 fL 6.2-12.0 [facility] Work Phone: Determination of erythrocyte mean corpuscular volume (MCV)on 05-12-2022 MCV (RBC) [Entitic vol] 92.7 fL 81-99 [facility] Work Phone: Hematocrit Auto (Bld) [Volum e fraction]on 05-12-2022 Hematocrit (Bld) [Volume fraction] 35.5 % 37-47 [facility] Work Phone: Laboratory - Chemistry and C hemistry - challengeon 05-12-2022 CO2 [Moles/Vol] 30.0 mmol/L 21.0-32.0 [facility] Work Phone: Urea nitrogen/Creatinine [Mass ratio] 21.8 mg/mg 10-20 [facility] Work Phone: Laboratory - Hematology and Cell countson 05-12-2022 Erythrocyte distribution width (RBC) [Entitic vol] 48.8 fL 35.1-43.[address] [facility] Work Phone: Erythrocyte distribution width (RBC) [Ratio] 14.5 % 11.6-14.6 [facility] Work Phone: MCH (RBC) [Entitic mass] 30.5 pg 27.0-32.0 [facility] Work Phone: MCHC Auto (RBC) [Mass/Vol]on 05-12-2022 MCHC (RBC) [Mass/Vol] 33.0 g/dL 32-36 [facility] Work Phone: No Panel Informationon 05-12 Estimated GFR (MDRD) Amer 60 mL/min >60 [facility] Work Phone: Comment on above: GFR Calc Estimated GFR (MDRD) Non-Af Amer 49 mL/min >60 [facility] Work Phone: Comment on above: Non- GFR Calc Platelets bldon 05-12-2022 Platelets (Bld) [#/Vol] 287 10*3/uL 150-450 [facility] Work Phone: Serum or plasma calcium tai urement (mass/volume)on 05-12-2022 Calcium [Mass/Vol] 9.7 mg/dL 8.5-10.1 [facility] Work Phone: Serum or plasma creatinine m easurement (mass/volume)on 05-12-2022 Creatinine [Mass/Vol] 1.19 mg/dL 0.55-1.02 [facility] Work Phone: Comment on above: The validity of the calculated GFR & GFRAA in patients over 70 years has not been determined. Clinical correlation is essential. Serum or plasma urea nitroge n measurement (mass/volume)on 05-12-2022 Urea nitrogen [Mass/Vol] 26 mg/dL 7-18 [facility] Work Phone: Thin prep Papanicolaou smear with manual screeningon 05-12-2022 Thin prep Papanicolaou smear with manual screening 6 5-15 [facility] Work Phone: Absolute lymphocyte counton 05-03-2022 Lymphocytes Auto (Unsp spec) [#/Vol] 2.67 10*3/uL 0.83-4.51 [facility] Work Phone: Basophil percentageon 2021 Basophils/100 WBC (Bld) 1.2 % 0-1 [facility] Work Phone: Chloride [Moles/Vol] 100 mmol/L 98-107 [facility] Work Phone: Eosinophils/100 WBC (Bld) 1.5 % 0-5 [facility] Work Phone: Glucose [Mass/Vol] 130 mg/dL 74-[address] [facility] Work Phone: [phone] Comment on above: Fasting Glucose resu lt greater than or equal to 126 mg/dL suggests DIABETES MELLITUS per A.D.A. criteria. Neutrophils (Bld) [#/Vol] 2.7 10*3/uL 2.0-7.7 [facility] Work Phone: Neutrophils/100 WBC (Bld) 45.1 % 47-70 [facility] Work Phone: Potassium [Moles/Vol] 4.0 mmol/L 3.5-5.1 [facility] Work Phone: Sodium [Moles/Vol] 136 mmol/L 136-[address] [facility] Work Phone: WBC (Bld) [#/Vol] 5.9 10*3/uL 4.4-11.[address] [facility] Work Phone: [phone] Blood erythrocytes count (nu mber/volume)on 05-03-2022 RBC (Bld) [#/Vol] 3.46 10*6/uL 4.2-5.4 [facility] Work Phone: Blood hemoglobin measurement (mass/volume)on 05-03-2022 Hemoglobin (Bld) [Mass/Vol] 10.6 g/dL 12.0-15.0 [facility] Work Phone: Blood lymphocytes/100 leukoc yteson 05-03-2022 Lymphocytes/100 WBC (Bld) 45.1 % 19-41 [facility] Work Phone: [phone] Blood monocytes/100 leukocyt eson 05-03-2022 Monocytes/100 WBC (Bld) 6.3 % 0-10 [facility] Work Phone: Blood platelet mean volumeon 05-03-2022 Platelet mean volume (Bld) [Entitic vol] 9.4 fL 6.2-12.0 [facility] Work Phone: Determination of erythrocyte mean corpuscular volume (MCV)on 05-03-2022 MCV (RBC) [Entitic vol] 91.3 fL 81-99 [facility] Work Phone: Hematocrit Auto (Bld) [Volum e fraction]on 05-03-2022 Hematocrit (Bld) [Volume fraction] 31.6 % 37-47 [facility] Work Phone: Laboratory - Chemistry and C hemistry - challengeon 05-03-2022 CO2 [Moles/Vol] 29.0 mmol/L 21.0-32.0 [facility] Work Phone: Urea nitrogen/Creatinine [Mass ratio] 19.3 mg/mg 10-20 [facility] Work Phone: Laboratory - Hematology and Cell countson 05-03-2022 Erythrocyte distribution width (RBC) [Entitic vol] 46.8 fL 35.1-43.[address] [facility] Work Phone: Erythrocyte distribution width (RBC) [Ratio] 14.4 % 11.6-14.6 [facility] Work Phone: Immature granulocytes/100 WBC (Bld) 0.800 % 0.0-0.9 [facility] Work Phone: Comment on above: IG% - Immature Granu locytes (promyelocytes, myelocytes and metamyelocytes) > 1% indicates that a LEFT SHIFT is Present. MCH (RBC) [Entitic mass] 30.6 pg 27.0-32.0 [facility] Work Phone: Nucleated RBC/100 WBC (Bld) [Ratio] 0.3 % 0-5 [facility] Work Phone: MCHC Auto (RBC) [Mass/Vol]on 05-03-2022 MCHC (RBC) [Mass/Vol] 33.5 g/dL 32-36 [facility] Work Phone: No Panel Informationon 05-03 Troponin I High Sensitivity 57 pg/mL 3.0-54.0 [facility] Work Phone: Comment on above: Please Note: New Carolann t Units and Gender Specific Reference Ranges. For more information see Policy Stat Procedure Bath High Sensitivity Troponin (TNIH) and attachments. Estimated Creatinine Clearance Calc 37.01 ml/min [facility] Work Phone: Estimated GFR (MDRD) Amer 60 mL/min >60 [facility] Work Phone: Comment on above: GFR Calc Estimated GFR (MDRD) Non-Af Amer 49 mL/min >60 [facility] Work Phone: Comment on above: Non- GFR Calc Platelets bldon 05-03-2022 Platelets (Bld) [#/Vol] 267 10*3/uL 150-450 [facility] Work Phone: Serum or plasma calcium tai urement (mass/volume)on 05-03-2022 Calcium [Mass/Vol] 9.1 mg/dL 8.5-10.[address] [facility] Work Phone: Serum or plasma creatinine m easurement (mass/volume)on 05-03-2022 Creatinine [Mass/Vol] 1.19 mg/dL 0.55-1.02 [facility] Work Phone: Comment on above: The validity of the calculated GFR & GFRAA in patients over 70 years has not been determined. Clinical correlation is essential. Serum or plasma urea nitroge n measurement (mass/volume)on 05-03-2022 Urea nitrogen [Mass/Vol] 23 mg/dL 7-18 [facility] Work Phone: Thin prep Papanicolaou smear with manual screeningon 05-03-2022 Thin prep Papanicolaou smear with manual screening 7 5-15 [facility] Work Phone: Basophil percentageon 2021 Chloride [Moles/Vol] 92 mmol/L 98-107 [facility] Work Phone: Glucose [Mass/Vol] 66 mg/dL 74-[address] [facility] Work Phone: Potassium [Moles/Vol] 4.3 mmol/L 3.5-5.1 [facility] Work Phone: Sodium [Moles/Vol] 131 mmol/L 136-[address] [facility] Work Phone: WBC (Bld) [#/Vol] 6.1 10*3/uL 4.4-11.[address] [facility] Work Phone: Blood erythrocytes count (nu mber/volume)on 04-28-2022 RBC (Bld) [#/Vol] 3.66 10*6/uL 4.2-5.4 [facility] Work Phone: Blood hemoglobin measurement (mass/volume)on 04-28-2022 Hemoglobin (Bld) [Mass/Vol] 11.1 g/dL 12.0-15.0 [facility] Work Phone: Blood platelet mean volumeon 04-28-2022 Platelet mean volume (Bld) [Entitic vol] 9.5 fL 6.2-12.0 [facility] Work Phone: Determination of erythrocyte mean corpuscular volume (MCV)on 04-28-2022 MCV (RBC) [Entitic vol] 90.7 fL 81-99 [facility] Work Phone: Hematocrit Auto (Bld) [Volum e fraction]on 04-28-2022 Hematocrit (Bld) [Volume fraction] 33.2 % 37-47 [facility] Work Phone: Laboratory - Chemistry and C hemistry - challengeon 04-28-2022 CO2 [Moles/Vol] 31.0 mmol/L 21.0-32.0 [facility] Work Phone: Urea nitrogen/Creatinine [Mass ratio] 21.4 mg/mg 10-20 [facility] Work Phone: Laboratory - Hematology and Cell countson 04-28-2022 Erythrocyte distribution width (RBC) [Entitic vol] 46.7 fL 35.1-43.[address] [facility] Work Phone: Erythrocyte distribution width (RBC) [Ratio] 14.2 % 11.6-14.6 [facility] [facility] Work Phone: MCH (RBC) [Entitic mass] 30.3 pg 27.0-32.0 [facility] Work Phone: MCHC Auto (RBC) [Mass/Vol]on 04-28-2022 MCHC (RBC) [Mass/Vol] 33.4 g/dL 32-36 [facility] Work Phone: No Panel Informationon 04-28 Estimated GFR (MDRD) Amer 71 mL/min >60 [facility] Work Phone: Comment on above: GFR Calc Estimated GFR (MDRD) Non-Af Amer 58 mL/min >60 [facility] Work Phone: Comment on above: Non- GFR Calc Platelets bldon 04-28-2022 Platelets (Bld) [#/Vol] 262 10*3/uL 150-450 [facility] Work Phone: Serum or plasma calcium tai urement (mass/volume)on 04-28-2022 Calcium [Mass/Vol] 9.4 mg/dL 8.5-10.[address] [facility] Work Phone: Serum or plasma creatinine m easurement (mass/volume)on 04-28-2022 Creatinine [Mass/Vol] 1.03 mg/dL 0.55-1.02 [facility] Work Phone: Comment on above: The validity of the calculated GFR & GFRAA in patients over 70 years has not been determined. Clinical correlation is essential. Serum or plasma urea nitroge n measurement (mass/volume)on 04-28-2022 Urea nitrogen [Mass/Vol] 22 mg/dL 7-18 [facility] Work Phone: Thin prep Papanicolaou smear with manual screeningon 04-28-2022 Thin prep Papanicolaou smear with manual screening 8 5-15 [facility] Work Phone: Basophil percentageon 2021 Bilirubin [Mass/Vol] 0.20 mg/dL 0.20-1.00 [facility] Work Phone: Comment on above: For patients on eltr ombopag therapy, use of Dimension Bath TBIL is not recommended. Cholesterol [Mass/Vol] 254 mg/dL <200 [facility] Work Phone: Comment on above: <200 mg/dL Desirable 200-240 mg/dL Borderline >240 mg/dL High Risk Protein [Mass/Vol] 7.4 g/dL 6.4-8.[address] [facility] Work Phone: Triglyceride [Mass/Vol] 250 mg/dL <199 [facility] Work Phone: Comment on above: The drugs N-Acetylcy steine and Metamizole may falsely depress this assay.Serum Triglycerides Reference Interval Normal <150 mg/dL Borderline high 150 - 199 mg/dL High 200 - 499 mg/dL Very High > or = 500 mg/dL Direct bilirubinon 2 Bilirubin.direct [Mass/Vol] 0.08 mg/dL 0.00-0.30 [facility] Work Phone: Glucose Glucometer (BldC) [M ass/Vol]on 04-25-2022 Glucose [Mass/Vol] 172 mg/dL 74-[address] [facility] Work Phone: Comment on above: MANAGEMENT OF PATIEN T CARE PER NURSING PROTOCOL Glucose [Mass/Vol] 135 mg/dL 74-[address] [facility] Work Phone: Comment on above: MANAGEMENT OF PATIEN T CARE PER NURSING PROTOCOL Laboratory - Chemistry and C hemistry - challengeon 04-25-2022 ALP [Catalytic activity/Vol] 123 U/L 45-117 [facility] Work Phone: ALT [Catalytic activity/Vol] 157 U/L 13-56 [facility] Work Phone: Globulin (S) [Mass/Vol] 4.1 g/dL 2.2-4.2 [facility] Work Phone: Serum or plasma albumin tai urement (mass/volume)on 04-25-2022 Albumin [Mass/Vol] 3.3 g/dL 3.2-5.[address] [facility] Work Phone: Serum or plasma cholesterol in HDL measurement (mass/volume)on 04-25-2022 Cholesterol in HDL [Mass/Vol] 41 mg/dL >40 [facility] Work Phone: Comment on above: The drugs N-Acetylcy steine and Metamizole may falsely depress this assay. Reference Range HDL <40 mg/dL Low HDL Cholesterol HDL >or= 60 mg/dL High HDL Cholesterol Serum or plasma cholesterol in VLDL measurement (mass/volume)on 04-25-2022 Cholesterol in VLDL [Mass/Vol] 50 mg/dL 5-40 [facility] Work Phone: Serum or plasma low density lipoprotein (LDL) cholesterol measurement (mass/volume)on 04-25-2022 Cholesterol in LDL [Mass/Vol] 163 mg/dL 0-130 [facility] Work Phone: Thin prep Papanicolaou smear with manual screeningon 04-25-2022 Thin prep Papanicolaou smear with manual screening 124 U/L 15-37 [facility] Work Phone: Whole blood hemoglobin A1c/t otal hemoglobin ratio (mass fraction)on 04-25-2022 HbA1c (Bld) [Mass fraction] 9.4 % 3.8-5.6 [facility] Work Phone: Comment on above: Normal < 5.7 % Predi abetic 5.7 - 6.4 % Diabetic >or= 6.5 % Please note range changes. Absolute lymphocyte counton 04-24-2022 Lymphocytes Auto (Unsp spec) [#/Vol] 2.29 10*3/uL 0.83-4.51 [facility] Work Phone: Basophil percentageon 2021 Basophils/100 WBC (Bld) 1.1 % 0-1 [facility] Work Phone: Chloride [Moles/Vol] 101 mmol/L 98-107 [facility] Work Phone: Eosinophils/100 WBC (Bld) 2.2 % 0-5 [facility] Work Phone: Glucose [Mass/Vol] 180 mg/dL 74-[address] [facility] Work Phone: Comment on above: Fasting Glucose resu lt greater than or equal to 126 mg/dL suggests DIABETES MELLITUS per A.D.A. criteria. Neutrophils (Bld) [#/Vol] 2.6 10*3/uL 2.0-7.7 [facility] Work Phone: Neutrophils/100 WBC (Bld) 49.1 % 47-70 [facility] Work Phone: Potassium [Moles/Vol] 3.9 mmol/L 3.5-5.1 [facility] Work Phone: [phone] Sodium [Moles/Vol] 138 mmol/L 136-[address] [facility] Work Phone: WBC (Bld) [#/Vol] 5.4 10*3/uL 4.4-11.[address] [facility] Work Phone: Blood erythrocytes count (nu mber/volume)on 04-24-2022 RBC (Bld) [#/Vol] 3.73 10*6/uL 4.2-5.4 [facility] Work Phone: Blood hemoglobin measurement (mass/volume)on 04-24-2022 Hemoglobin (Bld) [Mass/Vol] 11.4 g/dL 12.0-15.0 [facility] Work Phone: Blood lymphocytes/100 leukoc yteson 04-24-2022 Lymphocytes/100 WBC (Bld) 42.6 % 19-41 [facility] Work Phone: [phone] Blood monocytes/100 leukocyt eson 04-24-2022 Monocytes/100 WBC (Bld) 3.9 % 0-10 [facility] Work Phone: Blood platelet mean volumeon 04-24-2022 Platelet mean volume (Bld) [Entitic vol] 9.5 fL 6.2-12.0 [facility] Work Phone: Determination of erythrocyte mean corpuscular volume (MCV)on 04-24-2022 MCV (RBC) [Entitic vol] 91.4 fL 81-99 [facility] Work Phone: Hematocrit Auto (Bld) [Volum e fraction]on 04-24-2022 Hematocrit (Bld) [Volume fraction] 34.1 % 37-47 [facility] Work Phone: Laboratory - Chemistry and C hemistry - challengeon 04-24-2022 CO2 [Moles/Vol] 28.0 mmol/L 21.0-32.0 [facility] Work Phone: Urea nitrogen/Creatinine [Mass ratio] 15.7 mg/mg 10-20 [facility] Work Phone: Laboratory - Hematology and Cell countson 04-24-2022 Erythrocyte distribution width (RBC) [Entitic vol] 46.6 fL 35.1-43.[address] [facility] Work Phone: Erythrocyte distribution width (RBC) [Ratio] 14.0 % 11.6-14.6 [facility] Work Phone: Immature granulocytes/100 WBC (Bld) 1.100 % 0.0-0.9 [facility] Work Phone: Comment on above: IG% - Immature Granu locytes (promyelocytes, myelocytes and metamyelocytes) > 1% indicates that a LEFT SHIFT is Present. MCH (RBC) [Entitic mass] 30.6 pg 27.0-32.0 [facility] Work Phone: Nucleated RBC/100 WBC (Bld) [Ratio] 0 % 0-5 [facility] Work Phone: MCHC Auto (RBC) [Mass/Vol]on 04-24-2022 MCHC (RBC) [Mass/Vol] 33.4 g/dL 32-36 [facility] Work Phone: No Panel Informationon 04-24 Troponin I High Sensitivity 57 pg/mL 3.0-54.0 [facility] Work Phone: Comment on above: Please Note: New Carolann t Units and Gender Specific Reference Ranges. For more information see Policy Stat Procedure Bath High Sensitivity Troponin (TNIH) and attachments. D-Dimer Quantitative (PE/DVT) 0.32 FEU/ug/m 0.27-0.49 [facility] Work Phone: Comment on above: NORMAL D-Dimer level (<0.50) indicates no DVT or PE. Estimated Creatinine Clearance Calc 40.78 ml/min [facility] Work Phone: Estimated GFR (MDRD) Amer 67 mL/min >60 [facility] Work Phone: Comment on above: GFR Calc Estimated GFR (MDRD) Non-Af Amer 55 mL/min >60 [facility] Work Phone: Comment on above: Non- GFR Calc Platelets bldon 04-24-2022 Platelets (Bld) [#/Vol] 254 10*3/uL 150-450 [facility] Work Phone: Serum or plasma calcium tai urement (mass/volume)on 04-24-2022 Calcium [Mass/Vol] 9.3 mg/dL 8.5-10.1 [facility] Work Phone: Serum or plasma creatinine m easurement (mass/volume)on 04-24-2022 Creatinine [Mass/Vol] 1.08 mg/dL 0.55-1.02 [facility] Work Phone: Comment on above: The validity of the calculated GFR & GFRAA in patients over 70 years has not been determined. Clinical correlation is essential. Serum or plasma urea nitroge n measurement (mass/volume)on 04-24-2022 Urea nitrogen [Mass/Vol] 17 mg/dL 7-18 [facility] Work Phone: Thin prep Papanicolaou smear with manual screeningon 04-24-2022 Thin prep Papanicolaou smear with manual screening 9 5-15 [facility] Work Phone: Absolute lymphocyte counton 04-17-2022 Lymphocytes Auto (Unsp spec) [#/Vol] 2.66 10*3/uL 0.83-4.51 [facility] Work Phone: Basophil percentageon 2021 Basophils/100 WBC (Bld) 1.1 % 0-1 [facility] Work Phone: [phone] Chloride [Moles/Vol] 100 mmol/L 98-107 [facility] Work Phone: [phone] Eosinophils/100 WBC (Bld) 3.0 % 0-5 [facility] Work Phone: [phone] Glucose [Mass/Vol] 86 mg/dL 74-[address] [facility] Work Phone: [phone] Neutrophils (Bld) [#/Vol] 2.1 10*3/uL 2.0-7.7 [facility] Work Phone: [phone] Neutrophils/100 WBC (Bld) 39.4 % 47-70 [facility] Work Phone: [phone] Potassium [Moles/Vol] 3.8 mmol/L 3.5-5.1 [facility] Work Phone: [phone] Sodium [Moles/Vol] 136 mmol/L 136-[address] [facility] Work Phone: WBC (Bld) [#/Vol] 5.4 10*3/uL 4.4-11.[address] [facility] Work Phone: [phone] Blood erythrocytes count (nu mber/volume)on 04-17-2022 RBC (Bld) [#/Vol] 3.75 10*6/uL 4.2-5.4 [facility] Work Phone: Blood hemoglobin measurement (mass/volume)on 04-17-2022 Hemoglobin (Bld) [Mass/Vol] 11.5 g/dL 12.0-15.0 [facility] Work Phone: [phone] Blood lymphocytes/100 leukoc yteson 04-17-2022 Lymphocytes/100 WBC (Bld) 49.4 % 19-41 [facility] Work Phone: [phone] Blood monocytes/100 leukocyt eson 04-17-2022 Monocytes/100 WBC (Bld) 5.6 % 0-10 [facility] Work Phone: Blood platelet mean volumeon 04-17-2022 Platelet mean volume (Bld) [Entitic vol] 9.3 fL 6.2-12.0 [facility] Work Phone: Determination of erythrocyte mean corpuscular volume (MCV)on 04-17-2022 MCV (RBC) [Entitic vol] 91.7 fL 81-99 [facility] Work Phone: Hematocrit Auto (Bld) [Volum e fraction]on 04-17-2022 Hematocrit (Bld) [Volume fraction] 34.4 % 37-47 [facility] Work Phone: Laboratory - Chemistry and C hemistry - challengeon 04-17-2022 CO2 [Moles/Vol] 28.0 mmol/L 21.0-32.0 [facility] Work Phone: Urea nitrogen/Creatinine [Mass ratio] 14.8 mg/mg 10-20 [facility] Work Phone: Laboratory - Hematology and Cell countson 04-17-2022 Erythrocyte distribution width (RBC) [Entitic vol] 46.6 fL 35.1-43.[address] [facility] Work Phone: Erythrocyte distribution width (RBC) [Ratio] 13.9 % 11.6-14.6 [facility] Work Phone: Immature granulocytes/100 WBC (Bld) 1.500 % 0.0-0.9 [facility] Work Phone: Comment on above: IG% - Immature Granu locytes (promyelocytes, myelocytes and metamyelocytes) > 1% indicates that a LEFT SHIFT is Present. MCH (RBC) [Entitic mass] 30.7 pg 27.0-32.0 [facility] Work Phone: Nucleated RBC/100 WBC (Bld) [Ratio] 0 % 0-5 [facility] Work Phone: MCHC Auto (RBC) [Mass/Vol]on 04-17-2022 MCHC (RBC) [Mass/Vol] 33.4 g/dL 32-36 [facility] Work Phone: No Panel Informationon 04-17 Estimated GFR (MDRD) Amer 55 mL/min >60 [facility] Work Phone: Comment on above: GFR Calc Estimated GFR (MDRD) Non-Af Amer 45 mL/min >60 [facility] Work Phone: Comment on above: Non- GFR Calc Platelets bldon 04-17-2022 Platelets (Bld) [#/Vol] 244 10*3/uL 150-450 [facility] Work Phone: Serum or plasma calcium tai urement (mass/volume)on 04-17-2022 Calcium [Mass/Vol] 9.1 mg/dL 8.5-10.[address] [facility] Work Phone: Serum or plasma creatinine m easurement (mass/volume)on 04-17-2022 Creatinine [Mass/Vol] 1.28 mg/dL 0.55-1.02 [facility] Work Phone: Comment on above: The validity of the calculated GFR & GFRAA in patients over 70 years has not been determined. Clinical correlation is essential. Serum or plasma urea nitroge n measurement (mass/volume)on 04-17-2022 Urea nitrogen [Mass/Vol] 19 mg/dL 7-18 [facility] Work Phone: Thin prep Papanicolaou smear with manual screeningon 04-17-2022 Thin prep Papanicolaou smear with manual screening 8 5-15 [facility] Work Phone: Basophil percentageon 2021 Chloride [Moles/Vol] 99 mmol/L 98-107 [facility] Work Phone: Glucose [Mass/Vol] 59 mg/dL 74-[address] [facility] Work Phone: Potassium [Moles/Vol] 4.0 mmol/L 3.5-5.1 [facility] Work Phone: Sodium [Moles/Vol] 135 mmol/L 136-[address] [facility] Work Phone: WBC (Bld) [#/Vol] 5.8 10*3/uL 4.4-11.[address] [facility] Work Phone: Blood erythrocytes count (nu mber/volume)on 04-13-2022 RBC (Bld) [#/Vol] 3.84 10*6/uL 4.2-5.4 [facility] Work Phone: Blood hemoglobin measurement (mass/volume)on 04-13-2022 Hemoglobin (Bld) [Mass/Vol] 11.6 g/dL 12.0-15.0 [facility] Work Phone: Blood platelet mean volumeon 04-13-2022 Platelet mean volume (Bld) [Entitic vol] 9.6 fL 6.2-12.0 [facility] Work Phone: Determination of erythrocyte mean corpuscular volume (MCV)on 04-13-2022 MCV (RBC) [Entitic vol] 93.2 fL 81-99 [facility] Work Phone: Hematocrit Auto (Bld) [Volum e fraction]on 04-13-2022 Hematocrit (Bld) [Volume fraction] 35.8 % 37-47 [facility] Work Phone: Laboratory - Chemistry and C hemistry - challengeon 04-13-2022 CO2 [Moles/Vol] 28.0 mmol/L 21.0-32.0 [facility] Work Phone: Urea nitrogen/Creatinine [Mass ratio] 13.2 mg/mg - [facility] Work Phone: Laboratory - Hematology and Cell countson 04-13-2022 Erythrocyte distribution width (RBC) [Entitic vol] 47.1 fL 35.1-43.[address] [facility] Work Phone: Erythrocyte distribution width (RBC) [Ratio] 13.9 % 11.6-14.6 [facility] Work Phone: MCH (RBC) [Entitic mass] 30.2 pg 27.0-32.0 [facility] Work Phone: MCHC Auto (RBC) [Mass/Vol]on 04-13-2022 MCHC (RBC) [Mass/Vol] 32.4 g/dL 32-36 [facility] Work Phone: No Panel Informationon 04-13 Estimated GFR (MDRD) Amer 51 mL/min >60 [facility] Work Phone: Comment on above: GFR Calc Estimated GFR (MDRD) Non-Af Amer 42 mL/min >60 [facility] Work Phone: Comment on above: Non- GFR Calc Platelets bldon 04-13-2022 Platelets (Bld) [#/Vol] 284 10*3/uL 150-450 [facility] Work Phone: Serum or plasma calcium tai urement (mass/volume)on 04-13-2022 Calcium [Mass/Vol] 9.3 mg/dL 8.5-10.[address] [facility] Work Phone: Serum or plasma creatinine m easurement (mass/volume)on 04-13-2022 Creatinine [Mass/Vol] 1.36 mg/dL 0.55-1.02 [facility] Work Phone: Comment on above: The validity of the calculated GFR & GFRAA in patients over 70 years has not been determined. Clinical correlation is essential. Serum or plasma urea nitroge n measurement (mass/volume)on 04-13-2022 Urea nitrogen [Mass/Vol] 18 mg/dL 7-18 [facility] Work Phone: Thin prep Papanicolaou smear with manual screeningon 04-13-2022 Thin prep Papanicolaou smear with manual screening 8 5-15 [facility] Work Phone: Basophil percentageon 2021 Chloride [Moles/Vol] 100 mmol/L 98-107 [facility] Work Phone: Glucose [Mass/Vol] 74 mg/dL 74-[address] [facility] Work Phone: Potassium [Moles/Vol] 3.8 mmol/L 3.5-5.1 [facility] Work Phone: Sodium [Moles/Vol] 134 mmol/L 136-[address] [facility] Work Phone: WBC (Bld) [#/Vol] 6.9 10*3/uL 4.4-11.[address] [facility] Work Phone: Blood erythrocytes count (nu mber/volume)on 04-06-2022 RBC (Bld) [#/Vol] 3.80 10*6/uL 4.2-5.4 [facility] Work Phone: Blood hemoglobin measurement (mass/volume)on 04-06-2022 Hemoglobin (Bld) [Mass/Vol] 11.6 g/dL 12.0-15.0 [facility] Work Phone: Blood platelet mean volumeon 04-06-2022 Platelet mean volume (Bld) [Entitic vol] 9.2 fL 6.2-12.0 [facility] Work Phone: Determination of erythrocyte mean corpuscular volume (MCV)on 04-06-2022 MCV (RBC) [Entitic vol] 90.8 fL 81-99 [facility] Work Phone: Hematocrit Auto (Bld) [Volum e fraction]on 04-06-2022 Hematocrit (Bld) [Volume fraction] 34.5 % 37-47 [facility] Work Phone: Laboratory - Chemistry and C hemistry - challengeon 04-06-2022 CO2 [Moles/Vol] 27.0 mmol/L 21.0-32.0 [facility] Work Phone: Urea nitrogen/Creatinine [Mass ratio] 14.3 mg/mg 10-20 [facility] Work Phone: Laboratory - Hematology and Cell countson 04-06-2022 Erythrocyte distribution width (RBC) [Entitic vol] 46.6 fL 35.1-43.[address] [facility] Work Phone: Erythrocyte distribution width (RBC) [Ratio] 13.9 % 11.6-14.6 [facility] Work Phone: MCH (RBC) [Entitic mass] 30.5 pg 27.0-32.0 [facility] Work Phone: MCHC Auto (RBC) [Mass/Vol]on 04-06-2022 MCHC (RBC) [Mass/Vol] 33.6 g/dL 32-36 [facility] Work Phone: No Panel Informationon 04-06 Estimated GFR (MDRD) Amer 64 mL/min >60 [facility] Work Phone: Comment on above: GFR Calc Estimated GFR (MDRD) Non-Af Amer 53 mL/min >60 [facility] Work Phone: Comment on above: Non- GFR Calc Platelets bldon 04-06-2022 Platelets (Bld) [#/Vol] 309 10*3/uL 150-450 [facility] Work Phone: Serum or plasma calcium tai urement (mass/volume)on 04-06-2022 Calcium [Mass/Vol] 9.3 mg/dL 8.5-10.[address] [facility] Work Phone: Serum or plasma creatinine m easurement (mass/volume)on 04-06-2022 Creatinine [Mass/Vol] 1.12 mg/dL 0.55-1.02 [facility] Work Phone: Comment on above: The validity of the calculated GFR & GFRAA in patients over 70 years has not been determined. Clinical correlation is essential. Serum or plasma urea nitroge n measurement (mass/volume)on 04-06-2022 Urea nitrogen [Mass/Vol] 16 mg/dL 7-18 [facility] Work Phone: Thin prep Papanicolaou smear with manual screeningon 04-06-2022 Thin prep Papanicolaou smear with manual screening 7 5-15 [facility] Work Phone: Glucose Glucometer (BldC) [M ass/Vol]on 03-30-2022 Glucose [Mass/Vol] 140 mg/dL 74-[address] [facility] Work Phone: Comment on above: MANAGEMENT OF PATIEN T CARE PER NURSING PROTOCOL Basophil percentageon 2021 Chloride [Moles/Vol] 97 mmol/L 98-107 [facility] Work Phone: Glucose [Mass/Vol] 78 mg/dL 74-[address] [facility] Work Phone: Potassium [Moles/Vol] 3.5 mmol/L 3.5-5.1 [facility] Work Phone: Sodium [Moles/Vol] 136 mmol/L 136-[address] [facility] Work Phone: Laboratory - Chemistry and C hemistry - challengeon 03-29-2022 CO2 [Moles/Vol] 30.0 mmol/L 21.0-32.0 [facility] Work Phone: Urea nitrogen/Creatinine [Mass ratio] 16.3 mg/mg 10-20 [facility] Work Phone: No Panel Informationon 03-29 Estimated Creatinine Clearance Calc 42.35 ml/min [facility] Work Phone: Estimated GFR (MDRD) Amer 70 mL/min >60 [facility] Work Phone: Comment on above: GFR Calc Estimated GFR (MDRD) Non-Af Amer 58 mL/min >60 [facility] Work Phone: Comment on above: Non- GFR Calc Serum or plasma calcium tai urement (mass/volume)on 03-29-2022 Calcium [Mass/Vol] 9.5 mg/dL 8.5-10.[address] [facility] Work Phone: Serum or plasma creatinine m easurement (mass/volume)on 03-29-2022 Creatinine [Mass/Vol] 1.04 mg/dL 0.55-1.02 [facility] Work Phone: Comment on above: The validity of the calculated GFR & GFRAA in patients over 70 years has not been determined. Clinical correlation is essential. Serum or plasma urea nitroge n measurement (mass/volume)on 03-29-2022 Urea nitrogen [Mass/Vol] 17 mg/dL 7-18 [facility] Work Phone: Thin prep Papanicolaou smear with manual screeningon 03-29-2022 Thin prep Papanicolaou smear with manual screening 9 5-15 [facility] Work Phone: Absolute lymphocyte counton 03-26-2022 Lymphocytes Auto (Unsp spec) [#/Vol] 2.14 10*3/uL 0.83-4.51 [facility] Work Phone: Basophil percentageon 2021 Basophils/100 WBC (Bld) 0.6 % 0-1 [facility] Work Phone: Eosinophils/100 WBC (Bld) 1.4 % 0-5 [facility] Work Phone: Neutrophils (Bld) [#/Vol] 4.2 10*3/uL 2.0-7.7 [facility] Work Phone: Neutrophils/100 WBC (Bld) 60.0 % 47-70 [facility] Work Phone: WBC (Bld) [#/Vol] 7.0 10*3/uL 4.4-11.[address] [facility] Work Phone: Blood erythrocytes count (nu mber/volume)on 03-26-2022 RBC (Bld) [#/Vol] 3.48 10*6/uL 4.2-5.4 [facility] Work Phone: Blood hemoglobin measurement (mass/volume)on 03-26-2022 Hemoglobin (Bld) [Mass/Vol] 10.6 g/dL 12.0-15.0 [facility] Work Phone: Blood lymphocytes/100 leukoc yteson 03-26-2022 Lymphocytes/100 WBC (Bld) 30.7 % 19-41 [facility] Work Phone: Blood monocytes/100 leukocyt eson 03-26-2022 Monocytes/100 WBC (Bld) 6.3 % 0-10 [facility] Work Phone: Blood platelet mean volumeon 03-26-2022 Platelet mean volume (Bld) [Entitic vol] 10.3 fL 6.2-12.0 [facility] Work Phone: Determination of erythrocyte mean corpuscular volume (MCV)on 03-26-2022 MCV (RBC) [Entitic vol] 92.8 fL 81-99 [facility] Work Phone: Hematocrit Auto (Bld) [Volum e fraction]on 03-26-2022 Hematocrit (Bld) [Volume fraction] 32.3 % 37-47 [facility] Work Phone: Laboratory - Hematology and Cell countson 03-26-2022 Erythrocyte distribution width (RBC) [Entitic vol] 45.7 fL 35.1-43.[address] [facility] Work Phone: Erythrocyte distribution width (RBC) [Ratio] 13.5 % 11.6-14.6 [facility] Work Phone: Immature granulocytes/100 WBC (Bld) 1.000 % 0.0-0.9 [facility] Work Phone: Comment on above: IG% - Immature Granu locytes (promyelocytes, myelocytes and metamyelocytes) > 1% indicates that a LEFT SHIFT is Present. MCH (RBC) [Entitic mass] 30.5 pg 27.0-32.0 [facility] Work Phone: Nucleated RBC/100 WBC (Bld) [Ratio] 0 % 0-5 [facility] Work Phone: MCHC Auto (RBC) [Mass/Vol]on 03-26-2022 MCHC (RBC) [Mass/Vol] 32.8 g/dL 32-36 [facility] Work Phone: Platelets bldon 03-26-2022 Platelets (Bld) [#/Vol] 249 10*3/uL 150-450 [facility] Work Phone: Basophil percentageon 2021 Bilirubin [Mass/Vol] 0.40 mg/dL 0.20-1.00 [facility] Work Phone: Comment on above: For patients on eltr ombopag therapy, use of Dimension Bath TBIL is not recommended. Protein [Mass/Vol] 6.6 g/dL 6.4-8.[address] [facility] Work Phone: Laboratory - Chemistry and C hemistry - challengeon 03-24-2022 ALP [Catalytic activity/Vol] 72 U/L 45-117 [facility] Work Phone: ALT [Catalytic activity/Vol] 56 U/L 13-56 [facility] Work Phone: Globulin (S) [Mass/Vol] 3.7 g/dL 2.2-4.2 [facility] Work Phone: Serum or plasma albumin tai urement (mass/volume)on 03-24-2022 Albumin [Mass/Vol] 2.9 g/dL 3.2-5.[address] [facility] Work Phone: Serum or plasma albumin/glob ulin mass ratioon 03-24-2022 Albumin/Globulin [Mass ratio] 0.8 {ratio} 0.9-2.4 [facility] Work Phone: Thin prep Papanicolaou smear with manual screeningon 03-24-2022 Thin prep Papanicolaou smear with manual screening 62 U/L 15-37 [facility] Work Phone: Laboratory - Chemistry and C hemistry - challengeon 03-21-2022 Magnesium [Mass/Vol] 2.0 mg/dL 1.6-2.6 [facility] Work Phone: Absolute lymphocyte counton 03-20-2022 Lymphocytes Auto (Unsp spec) [#/Vol] 2.56 10*3/uL 0.83-4.51 [facility] Work Phone: Basophil percentageon 2021 Basophil percentage 25-50 SEEN /hpf 0-5 [facility] Work Phone: Basophils/100 WBC (Bld) 0.6 % 0-1 [facility] Work Phone: Chloride [Moles/Vol] 91 mmol/L 98-107 [facility] Work Phone: Eosinophils/100 WBC (Bld) 0.4 % 0-5 [facility] Work Phone: [phone] Glucose [Mass/Vol] 489 mg/dL 74-[address] [facility] Work Phone: [phone] Comment on above: Glucose result great er than or equal to 200 mg/dLsuggests DIABETES MELLITUS per A.D.A. criteria. Neutrophils (Bld) [#/Vol] 3.8 10*3/uL 2.0-7.7 [facility] Work Phone: Neutrophils/100 WBC (Bld) 56.5 % 47-70 [facility] [facility] Work Phone: Potassium [Moles/Vol] 3.6 mmol/L 3.5-5.1 [facility] Work Phone: Sodium [Moles/Vol] 128 mmol/L 136-[address] [facility] Work Phone: WBC (Bld) [#/Vol] 6.8 10*3/uL 4.4-11.[address] [facility] Work Phone: Bilirubin Test strip Ql (U)o n 03-20-2022 Bilirubin Ql (U) Negative Negative [facility] Work Phone: Blood erythrocytes count (nu mber/volume)on 03-20-2022 RBC (Bld) [#/Vol] 4.08 10*6/uL 4.2-5.4 [facility] Work Phone: [phone] Blood hemoglobin measurement (mass/volume)on 03-20-2022 Hemoglobin (Bld) [Mass/Vol] 12.9 g/dL 12.0-15.0 [facility] Work Phone: Blood lymphocytes/100 leukoc yteson 03-20-2022 Lymphocytes/100 WBC (Bld) 37.6 % 19-41 [facility] Work Phone: Blood monocytes/100 leukocyt eson 03-20-2022 Monocytes/100 WBC (Bld) 4.3 % 0-10 [facility] Work Phone: Blood platelet mean volumeon 03-20-2022 Platelet mean volume (Bld) [Entitic vol] 9.7 fL 6.2-12.0 [facility] Work Phone: Determination of erythrocyte mean corpuscular volume (MCV)on 03-20-2022 MCV (RBC) [Entitic vol] 87.0 fL 81-99 [facility] Work Phone: Glucose Glucometer (BldC) [M ass/Vol]on 03-20-2022 Glucose [Mass/Vol] 420 mg/dL 74-[address] [facility] Work Phone: Comment on above: MANAGEMENT OF PATIEN T CARE PER NURSING PROTOCOL Hematocrit Auto (Bld) [Volum e fraction]on 03-20-2022 Hematocrit (Bld) [Volume fraction] 35.5 % 37-47 [facility] Work Phone: Ketones Test strip Ql (U)on 03-20-2022 Ketones Ql (U) Negative Negative [facility] Work Phone: Laboratory - Chemistry and C hemistry - challengeon 03-20-2022 CO2 [Moles/Vol] 27.0 mmol/L 21.0-32.0 [facility] Work Phone: Urea nitrogen/Creatinine [Mass ratio] 11.0 mg/mg 10-20 [facility] Work Phone: Laboratory - Hematology and Cell countson 03-20-2022 Erythrocyte distribution width (RBC) [Entitic vol] 41.2 fL 35.1-43.[address] [facility] Work Phone: Erythrocyte distribution width (RBC) [Ratio] 13.0 % 11.6-14.6 [facility] Work Phone: Immature granulocytes/100 WBC (Bld) 0.600 % 0.0-0.9 [facility] Work Phone: Comment on above: IG% - Immature Granu locytes (promyelocytes, myelocytes and metamyelocytes) > 1% indicates that a LEFT SHIFT is Present. MCH (RBC) [Entitic mass] 31.6 pg 27.0-32.0 [facility] Work Phone: Nucleated RBC/100 WBC (Bld) [Ratio] 0 % 0-5 [facility] Work Phone: MCHC Auto (RBC) [Mass/Vol]on 03-20-2022 MCHC (RBC) [Mass/Vol] 36.3 g/dL 32-36 [facility] Work Phone: Mucus LM Ql (Urine sed)on Mucus Ql (Urine sed) 0 SEEN /hpf [facility] Work Phone: Nitrite Test strip Ql (U)on 03-20-2022 Nitrite Ql (U) Negative Negative [facility] Work Phone: No Panel Informationon 03-20 Estimated Creatinine Clearance Calc 34.68 ml/min [facility] Work Phone: Estimated GFR (MDRD) Amer 56 mL/min >60 [facility] Work Phone: Comment on above: GFR Calc Estimated GFR (MDRD) Non-Af Amer 46 mL/min >60 [facility] Work Phone: Comment on above: Non- GFR Calc Platelets bldon 03-20-2022 Platelets (Bld) [#/Vol] 263 10*3/uL 150-450 [facility] Work Phone: Protein Test strip Ql (U)on 03-20-2022 Protein Ql (U) 30 mg/dl Negative [facility] Work Phone: Serum or plasma calcium tai urement (mass/volume)on 03-20-2022 Calcium [Mass/Vol] 9.1 mg/dL 8.5-10.[address] [facility] Work Phone: Serum or plasma creatinine m easurement (mass/volume)on 03-20-2022 Creatinine [Mass/Vol] 1.27 mg/dL 0.55-1.02 [facility] Work Phone: Comment on above: The validity of the calculated GFR & GFRAA in patients over 70 years has not been determined. Clinical correlation is essential. Serum or plasma urea nitroge n measurement (mass/volume)on 03-20-2022 Urea nitrogen [Mass/Vol] 14 mg/dL 7-18 [facility] Work Phone: Squamous epithelial cells de tection in urine sediment by light microscopyon 03-20-2022 Epithelial cells.squamous LM Ql (Urine sed) 5-10 SEEN /hpf 5-10 [facility] Work Phone: Thin prep Papanicolaou smear with manual screeningon 03-20-2022 Thin prep Papanicolaou smear with manual screening 10 5-15 [facility] Work Phone: Urine blood detectionon 02-23 RBC Ql (U) 10 /ul Negative [facility] Work Phone: RBC Ql (U) 0 SEEN /hpf 0-5 [facility] Work Phone: Urine clarityon 03-20-2022 Clarity (U) Clear Clear [facility] Work Phone: Urine color determinationon 03-20-2022 Color (U) Yellow Yellow [facility] Work Phone: Urine glucose detectionon Glucose Ql (U) 1000 mg/dl Normal [facility] Work Phone: Urine leukocyte esterase det ection by dipstickon 03-20-2022 Leukocyte esterase Test strip Ql (U) 100 /ul Negative [facility] Work Phone: Urine pHon 03-20-2022 pH (U) 6.0 [pH] 5.0 - 8.0 [facility] Work Phone: Urine sediment bacteria coun t by microscopy (number/high power field)on 03-20-2022 Bacteria LM.HPF (Urine sed) [#/Area] 2 /[HPF] None Seen [facility] Work Phone: Urine specific gravity measu rementon 03-20-2022 Specific gravity (U) [Rel density] 1.015 1.002-1.03 0 [facility] Work Phone: Urobilinogen Auto test strip Ql (U)on 03-20-2022 Urobilinogen Ql (U) Normal mg/dl Normal [facility] Work Phone: Whole blood hemoglobin A1c/t otal hemoglobin ratio (mass fraction)on 03-20-2022 HbA1c (Bld) [Mass fraction] 13.1 % 3.8-5.6 [facility] Work Phone: Comment on above: Normal < 5.7 % Predi abetic 5.7 - 6.4 % Diabetic >or= 6.5 % Please note range changes. Absolute lymphocyte counton 02-24-2022 Lymphocytes Auto (Unsp spec) [#/Vol] 1.98 10*3/uL 0.83-4.51 [facility] Work Phone: Basophil percentageon 2021 Basophils/100 WBC (Bld) 0.8 % 0-1 [facility] Work Phone: Bilirubin [Mass/Vol] 0.50 mg/dL 0.20-1.00 [facility] Work Phone: Comment on above: For patients on eltr ombopag therapy, use of Dimension [place] TBIL is not recommended. Chloride [Moles/Vol] 87 mmol/L 98-107 [facility] Work Phone: Eosinophils/100 WBC (Bld) 0.2 % 0-5 [facility] Work Phone: Glucose [Mass/Vol] 569 mg/dL 74-[address] [facility] Work Phone: Comment on above: Critical Result(s) C alled at: 14:47:48 02/24/2022 by: Juana Delacruz. Results read back by same.Glucose result greater than or equal to 200 mg/dLsuggests DIABETES MELLITUS per A.D.A. criteria. Neutrophils (Bld) [#/Vol] 3.9 10*3/uL 2.0-7.7 [facility] Work Phone: Neutrophils/100 WBC (Bld) 62.4 % 47-70 [facility] Work Phone: Potassium [Moles/Vol] 3.8 mmol/L 3.5-5.1 [facility] Work Phone: [phone] Protein [Mass/Vol] 7.6 g/dL 6.4-8.[address] [facility] Work Phone: [phone] Sodium [Moles/Vol] 127 mmol/L 136-[address] [facility] Work Phone: WBC (Bld) [#/Vol] 6.3 10*3/uL 4.4-11.[address] [facility] Work Phone: Blood erythrocytes count (nu mber/volume)on 02-24-2022 RBC (Bld) [#/Vol] 4.08 10*6/uL 4.2-5.4 [facility] Work Phone: Blood hemoglobin measurement (mass/volume)on 02-24-2022 Hemoglobin (Bld) [Mass/Vol] 12.7 g/dL 12.0-15.0 [facility] Work Phone: Blood lymphocytes/100 leukoc yteson 02-24-2022 Lymphocytes/100 WBC (Bld) 31.4 % 19-41 [facility] Work Phone: [phone] Blood monocytes/100 leukocyt eson 02-24-2022 Monocytes/100 WBC (Bld) 4.4 % 0-10 [facility] Work Phone: Blood platelet mean volumeon 02-24-2022 Platelet mean volume (Bld) [Entitic vol] 9.7 fL 6.2-12.0 [facility] Work Phone: Determination of erythrocyte mean corpuscular volume (MCV)on 02-24-2022 MCV (RBC) [Entitic vol] 88.0 fL 81-99 [facility] Work Phone: Glucose Glucometer (BldC) [M ass/Vol]on 02-24-2022 Glucose [Mass/Vol] 407 mg/dL 74-[address] [facility] Work Phone: Comment on above: MANAGEMENT OF PATIEN T CARE PER NURSING PROTOCOL Hematocrit Auto (Bld) [Volum e fraction]on 02-24-2022 Hematocrit (Bld) [Volume fraction] 35.9 % 37-47 [facility] Work Phone: Laboratory - Chemistry and C hemistry - challengeon 02-24-2022 ALP [Catalytic activity/Vol] 93 U/L 45-117 [facility] Work Phone: ALT [Catalytic activity/Vol] 56 U/L 13-56 [facility] Work Phone: CO2 [Moles/Vol] 27.0 mmol/L 21.0-32.0 [facility] Work Phone: Globulin (S) [Mass/Vol] 4.0 g/dL 2.2-4.2 [facility] Work Phone: Urea nitrogen/Creatinine [Mass ratio] 8.1 mg/mg 10-20 [facility] Work Phone: Laboratory - Hematology and Cell countson 02-24-2022 Erythrocyte distribution width (RBC) [Entitic vol] 44.8 fL 35.1-43.[address] [facility] Work Phone: Erythrocyte distribution width (RBC) [Ratio] 14.0 % 11.6-14.6 [facility] Work Phone: Immature granulocytes/100 WBC (Bld) 0.800 % 0.0-0.9 [facility] Work Phone: Comment on above: IG% - Immature Granu locytes (promyelocytes, myelocytes and metamyelocytes) > 1% indicates that a LEFT SHIFT is Present. MCH (RBC) [Entitic mass] 31.1 pg 27.0-32.0 [facility] Work Phone: Nucleated RBC/100 WBC (Bld) [Ratio] 0 % 0-5 [facility] Work Phone: MCHC Auto (RBC) [Mass/Vol]on 02-24-2022 MCHC (RBC) [Mass/Vol] 35.4 g/dL 32-36 [facility] Work Phone: No Panel Informationon 02-24 Estimated Creatinine Clearance Calc 29.76 ml/min [facility] Work Phone: Estimated GFR (MDRD) Amer 47 mL/min >60 [facility] Work Phone: Comment on above: GFR Calc Estimated GFR (MDRD) Non-Af Amer 38 mL/min >60 [facility] Work Phone: Comment on above: Non- GFR Calc Platelets bldon 02-24-2022 Platelets (Bld) [#/Vol] 231 10*3/uL 150-450 [facility] Work Phone: Serum or plasma albumin tai urement (mass/volume)on 02-24-2022 Albumin [Mass/Vol] 3.6 g/dL 3.2-5.[address] [facility] Work Phone: Serum or plasma albumin/glob ulin mass ratioon 02-24-2022 Albumin/Globulin [Mass ratio] 0.9 {ratio} 0.9-2.4 [facility] Work Phone: Serum or plasma calcium tai urement (mass/volume)on 02-24-2022 Calcium [Mass/Vol] 8.3 mg/dL 8.5-10.[address] [facility] Work Phone: Serum or plasma creatinine m easurement (mass/volume)on 02-24-2022 Creatinine [Mass/Vol] 1.48 mg/dL 0.55-1.02 [facility] Work Phone: Comment on above: The validity of the calculated GFR & GFRAA in patients over 70 years has not been determined. Clinical correlation is essential. Serum or plasma urea nitroge n measurement (mass/volume)on 02-24-2022 Urea nitrogen [Mass/Vol] 12 mg/dL 7-18 [facility] Work Phone: Thin prep Papanicolaou smear with manual screeningon 02-24-2022 Thin prep Papanicolaou smear with manual screening 45 U/L 15-37 [facility] Work Phone: [phone] Thin prep Papanicolaou smear with manual screening 13 5-15 [facility] Work Phone: Absolute lymphocyte counton 01-13-2022 Lymphocytes Auto (Unsp spec) [#/Vol] 2.40 10*3/uL 0.83-4.51 [facility] Work Phone: Amorphous sediment detection in urine sediment by light microscopyon 01-13-2022 Amorphous sediment LM Ql (Urine sed) 1+ URATE [facility] Work Phone: Basophil percentageon 2021 Basophil percentage 25-50 SEEN /hpf 0-5 [facility] Work Phone: Basophils/100 WBC (Bld) 0.4 % 0-1 [facility] Work Phone: Chloride [Moles/Vol] 89 mmol/L 98-107 [facility] Work Phone: Eosinophils/100 WBC (Bld) 0.3 % 0-5 [facility] Work Phone: Glucose [Mass/Vol] 496 mg/dL 74-[address] [facility] Work Phone: Comment on above: Glucose result great er than or equal to 200 mg/dLsuggests DIABETES MELLITUS per A.D.A. criteria. Neutrophils (Bld) [#/Vol] 4.8 10*3/uL 2.0-7.7 [facility] Work Phone: Neutrophils/100 WBC (Bld) 63.1 % 47-70 [facility] Work Phone: Potassium [Moles/Vol] 4.2 mmol/L 3.5-5.1 [facility] Work Phone: Sodium [Moles/Vol] 126 mmol/L 136-[address] [facility] Work Phone: Comment on above: Critical Result(s) C alled at: 15:44:11 01/13/2022 by: AUSTYN ESTRELLA. to debra lynch rn ed Results read back by same. WBC (Bld) [#/Vol] 7.6 10*3/uL 4.4-11.[address] [facility] Work Phone: Bilirubin Test strip Ql (U)o n 01-13-2022 Bilirubin Ql (U) Negative Negative [facility] Work Phone: Blood erythrocytes count (nu mber/volume)on 01-13-2022 RBC (Bld) [#/Vol] 4.55 10*6/uL 4.2-5.4 [facility] Work Phone: Blood hemoglobin measurement (mass/volume)on 01-13-2022 Hemoglobin (Bld) [Mass/Vol] 14.0 g/dL 12.0-15.0 [facility] Work Phone: Blood lymphocytes/100 leukoc yteson 01-13-2022 Lymphocytes/100 WBC (Bld) 31.7 % 19-41 [facility] Work Phone: Blood monocytes/100 leukocyt eson 01-13-2022 Monocytes/100 WBC (Bld) 4.0 % 0-10 [facility] Work Phone: [phone] Blood platelet mean volumeon 01-13-2022 Platelet mean volume (Bld) [Entitic vol] 9.8 fL 6.2-12.0 [facility] Work Phone: Culture, urineon 01-13-2022 Bacteria identified Cx Nom (U) Negative [facility] Work Phone: Bacteria identified Cx Nom (U) Mixed Gram Pos & Gram Neg Org [facility] Work Phone: Determination of erythrocyte mean corpuscular volume (MCV)on 01-13-2022 MCV (RBC) [Entitic vol] 82.6 fL 81-99 [facility] Work Phone: Glucose Glucometer (BldC) [M ass/Vol]on 01-13-2022 Glucose [Mass/Vol] 361 mg/dL 74-[address] [facility] Work Phone: Comment on above: MANAGEMENT OF PATIEN T CARE PER NURSING PROTOCOL Hematocrit Auto (Bld) [Volum e fraction]on 01-13-2022 Hematocrit (Bld) [Volume fraction] 37.6 % 37-47 [facility] Work Phone: Ketones Test strip Ql (U)on 01-13-2022 Ketones Ql (U) Negative Negative [facility] Work Phone: Laboratory - Chemistry and C hemistry - challengeon 01-13-2022 CO2 [Moles/Vol] 28.0 mmol/L 21.0-32.0 [facility] Work Phone: Urea nitrogen/Creatinine [Mass ratio] 11.5 mg/mg 10-20 [facility] Work Phone: Laboratory - Hematology and Cell countson 01-13-2022 Erythrocyte distribution width (RBC) [Entitic vol] 42.2 fL 35.1-43.[address] [facility] Work Phone: Erythrocyte distribution width (RBC) [Ratio] 14.0 % 11.6-14.6 [facility] Work Phone: Immature granulocytes/100 WBC (Bld) 0.500 % 0.0-0.9 [facility] Work Phone: Comment on above: IG% - Immature Granu locytes (promyelocytes, myelocytes and metamyelocytes) > 1% indicates that a LEFT SHIFT is Present. MCH (RBC) [Entitic mass] 30.8 pg 27.0-32.0 [facility] Work Phone: Nucleated RBC/100 WBC (Bld) [Ratio] 0 % 0-5 [facility] Work Phone: MCHC Auto (RBC) [Mass/Vol]on 01-13-2022 MCHC (RBC) [Mass/Vol] 37.2 g/dL 32-36 [facility] Work Phone: Mucus LM Ql (Urine sed)on Mucus Ql (Urine sed) 0 SEEN /hpf [facility] Work Phone: Nitrite Test strip Ql (U)on 01-13-2022 Nitrite Ql (U) Negative Negative [facility] Work Phone: No Panel Informationon 01-13 Estimated Creatinine Clearance Calc 28.06 ml/min [facility] Work Phone: Estimated GFR (MDRD) Amer 43 mL/min >60 [facility] Work Phone: Comment on above: GFR Calc Estimated GFR (MDRD) Non-Af Amer 36 mL/min >60 [facility] Work Phone: Comment on above: Non- GFR Calc Insulin Level 32.1 mU/L 2.6-37.6 [facility] Work Phone: Comment on above: Please Note: INSULIN METHOD & REFERENCE RANGE CHANGEEffective 11/04/2017. Platelets bldon 01-13-2022 Platelets (Bld) [#/Vol] 267 10*3/uL 150-450 [facility] Work Phone: Protein Test strip Ql (U)on 01-13-2022 Protein Ql (U) 30 mg/dl Negative [facility] Work Phone: Serum or plasma acetone tai urement (mass/volume)on 01-13-2022 Acetone [Mass/Vol] Negative NEG [facility] Work Phone: Serum or plasma calcium tai urement (mass/volume)on 01-13-2022 Calcium [Mass/Vol] 9.8 mg/dL 8.5-10.[address] [facility] Work Phone: Serum or plasma creatinine m easurement (mass/volume)on 01-13-2022 Creatinine [Mass/Vol] 1.57 mg/dL 0.55-1.02 [facility] Work Phone: Comment on above: The validity of the calculated GFR & GFRAA in patients over 70 years has not been determined. Clinical correlation is essential. Serum or plasma urea nitroge n measurement (mass/volume)on 01-13-2022 Urea nitrogen [Mass/Vol] 18 mg/dL 7-18 [facility] Work Phone: Squamous epithelial cells de tection in urine sediment by light microscopyon 01-13-2022 Epithelial cells.squamous LM Ql (Urine sed) 0-5 SEEN /hpf 5-10 [facility] Work Phone: Thin prep Papanicolaou smear with manual screeningon 01-13-2022 Thin prep Papanicolaou smear with manual screening 9 5-15 [facility] Work Phone: Urine blood detectionon 12-24 RBC Ql (U) 10 /ul Negative [facility] Work Phone: RBC Ql (U) 0-5 SEEN /hpf 0-5 [facility] Work Phone: Urine clarityon 01-13-2022 Clarity (U) Sl. Cloudy Clear [facility] Work Phone: Urine color determinationon 01-13-2022 Color (U) Yellow Yellow [facility] Work Phone: Urine glucose detectionon Glucose Ql (U) 1000 mg/dl Normal [facility] Work Phone: Urine leukocyte esterase det ection by dipstickon 01-13-2022 Leukocyte esterase Test strip Ql (U) 500 /ul Negative [facility] Work Phone: Urine pHon 01-13-2022 pH (U) 5.0 [pH] 5.0 - 8.0 [facility] Work Phone: Urine sediment bacteria coun t by microscopy (number/high power field)on 01-13-2022 Bacteria LM.HPF (Urine sed) [#/Area] 0 /[HPF] None Seen [facility] Work Phone: Urine specific gravity measu rementon 01-13-2022 Specific gravity (U) [Rel density] 1.015 1.002-1.03 0 [facility] Work Phone: Urobilinogen Auto test strip Ql (U)on 01-13-2022 Urobilinogen Ql (U) Normal mg/dl Normal [facility] Work Phone: Gram stain for investigation of transfusion reactionon 09-27-2021 Microscopic observation Gram stain Nom (Unsp spec) [facility] Work Phone: .Auto Diffon 12-13-2019 Ammonia (P) [Mass/Vol] 0.30 10 3/mcL Normal 0.15-1.00 [facility] ([place]) Comment on above: Performed By: #### Taco PEARCE BMP #### [place] [address] #### CBC, ADIFF, ANEU #### [address] [address] Basophils (Bld) [#/Vol] 0.00 10 3/mcL Normal 0.00-0.19 [facility] ([place]) Comment on above: Performed By: #### Taco PEARCE BMP #### [place] [address] #### CBC, ADIFF, ANEU #### [address] [address] Basophils/100 WBC (Bld) 0.5 % Normal 0.0-2.5 [facility] ([place]) Comment on above: Performed By: #### Taco PEARCE BMP #### [place] [address] #### CBC, ADIFF, ANEU #### [address] [address] Eosinophils (Bld) [#/Vol] 0.00 10 3/mcL Normal 0.00-0. 40 [facility] ([place]) Comment on above: Performed By: #### G FR, BMP #### [address] [address] #### CBC, ADIFF, ANEU #### [address] [address] Eosinophils/100 WBC (Bld) 0.8 % Normal 0.0-7.0 [facility] ([place]) Comment on above: Performed By: #### G FR, BMP #### [place] [address] #### CBC, ADIFF, ANEU #### [address] [address] Lymphocytes (Bld) [#/Vol] 2.00 10 3/mcL Normal 0.77-3. 85 [facility] ([place]) Comment on above: Performed By: #### G FR, BMP #### [place] [address] #### CBC, ADIFF, ANEU #### [address] [address] Lymphocytes/100 WBC (Bld) 33.6 % Normal 10.0-50.0 [facility] ([place]) Comment on above: Performed By: #### G FR, BMP #### [place] [address] #### CBC, ADIFF, ANEU #### [address] [address] Monocytes/100 WBC (Bld) 4.7 % Normal 1.7-13.0 [facility] ([place]) Comment on above: Performed By: #### G FR, BMP #### [place] [address] #### CBC, ADIFF, ANEU #### [address] [address] Neutrophils/100 WBC (Bld) 60.4 % Normal 37.0-80.0 [facility] ([place]) Comment on above: Performed By: #### G FR, BMP #### [address] [address] #### CBC, ADIFF, ANEU #### [place] [address] [place], [place] [address] .GFRon 12-13-2019 GFR 54 ml/min/1.73sqm Normal [facility] ([place]) Comment on above: Result Comment: GFR Population [...] Performed By: #### G FR, BMP #### [address] [address] #### CBC, ADIFF, ANEU #### [place] [address] [place], [place] [address] GFR Non- 45 ml/min/1.73sqm Normal [facility] ([place]) Comment on above: Result Comment: GFR Population [...] Performed By: #### G FR, BMP #### [address] [address] #### CBC, ADIFF, ANEU #### [address] [address] .NEUABSon 12-13-2019 Neutrophils (Bld) [#/Vol] 3.50 10 3/mcL Normal 2.85-6. 16 [facility] ([place]) Comment on above: Performed By: #### Taco PEARCE, BMP #### [place] [address] #### CBC, ADIFF, ANEU #### [place] [id number] .Urinalysis Microscopic (AO) on 12-13-2019 RBC (U) [#/Vol] LOADED Abnormal None Seen [facility] ([place]) Comment on above: Performed By: #### U AMICASenia, UA #### [place] [address] UA Squam Epithelial 0-5 Abnormal None Seen [facility] ([place]) Comment on above: Performed By: #### U AMICAO, UA #### [place] [address] UA WBC 0-5 Abnormal None Seen [facility] ([place]) Comment on above: Performed By: #### U AMICASenia, UA #### [place] [address] BMPon 12-13-2019 Calcium [Mass/Vol] 9.2 mg/dL Normal 8.4-10.2 [facility] ([place]) Comment on above: Performed By: #### Taco PEARCE, BMP #### [place] [address] #### CBC, ADIFF, ANEU #### [address] [address] Chloride [Moles/Vol] 90 mmol/L Low 98-107 [facility] ([place]) Comment on above: Performed By: #### Taco PEARCE, BMP #### [place] [address] #### CBC, ADIFF, ANEU #### [place] [id number] CO2 [Moles/Vol] 25 mmol/L Normal 22-29 [facility] ([place]) Comment on above: Performed By: #### G FR, BMP #### [address] [address] #### CBC, ADIFF, ANEU #### [address] [address] Creatinine [Mass/Vol] 1.24 mg/dL High 0.55-1.02 [facility] ([place]) Comment on above: Performed By: #### G FR, BMP #### [place] [address] #### CBC, ADIFF, ANEU #### [address] [address] Electrolyte Balance 11.0 mEq/L Normal [facility] ([place]) Comment on above: Performed By: #### Taco FR, BMP #### [place] [address] #### CBC, ADIFF, ANEU #### [address] [address] Glucose [Mass/Vol] 697 mg/dL Critically abnormal 70-105 [facility] ([place]) Comment on above: Performed By: #### G FR, BMP #### [place] [address] #### CBC, ADIFF, ANEU #### [address] [address] Potassium [Moles/Vol] 4.0 mmol/L Normal 3.5-5.1 [facility] ([place]) Comment on above: Performed By: #### G FR, BMP #### [place] [address] #### CBC, ADIFF, ANEU #### [address] [address] Sodium [Moles/Vol] 126 mmol/L Low 136-145 [facility] ([place]) Comment on above: Performed By: #### G FR, BMP #### [address] [address] #### CBC, ADIFF, ANEU #### [address] [address] Urea nitrogen [Mass/Vol] 17 mg/dL Normal 7-18 [facility] ([place]) Comment on above: Performed By: #### G FR, BMP #### [address] [address] #### CBC, ADIFF, ANEU #### [address] [address] Urea nitrogen/Creatinine [Mass ratio] 14 ratio Normal 7-27 [facility] ([place]) Comment on above: Performed By: #### G FR, BMP #### [place] [address] #### CBC, ADIFF, ANEU #### [address] [address] CBCon 12-13-2019 Erythrocyte distribution width (RBC) [Ratio] 12.7 % Normal 11.5-14.5 [facility] ([place]) Comment on above: Performed By: #### G FR, BMP #### [place] [address] #### CBC, ADIFF, ANEU #### [address] [address] Hematocrit (Bld) [Volume fraction] 41.3 % Normal 37.0-47.0 [facility] ([place]) Comment on above: Performed By: #### G FR, BMP #### [place] [address] #### CBC, ADIFF, ANEU #### [address] [address] Hemoglobin (Bld) [Mass/Vol] 13.9 G/dL Normal 12.0-16.0 [facility] ([place]) Comment on above: Performed By: #### G FR, BMP #### [place] [address] #### CBC, ADIFF, ANEU #### [address] [address] MCH (RBC) [Entitic mass] 30.5 pg Normal 27.0-31.2 [facility] ([place]) Comment on above: Performed By: #### Taco FR, BMP #### [address] [address] #### CBC, ADIFF, ANEU #### [address] [address] MCHC (RBC) [Mass/Vol] 33.7 G/dL Normal 33.0-37.0 [facility] ([place]) Comment on above: Performed By: #### Taco FR, BMP #### [place] [address] #### CBC, ADIFF, ANEU #### [address] [address] MCV (RBC) [Entitic vol] 90.5 fL Normal 80.0-94.0 A [facility] ([place]) Comment on above: Performed By: #### Taco FR, BMP #### [place] [address] #### CBC, ADIFF, ANEU #### [address] [address] Platelet mean volume (Bld) [Entitic vol] 7.9 fL Normal 7.4-10.4 [facility] ([place]) Comment on above: Performed By: #### Taco FR, BMP #### [place] [address] #### CBC, ADIFF, ANEU #### [address] [address] Platelets (Bld) [#/Vol] 216 10 3/mcL Normal 130-400 [facility] ([place]) Comment on above: Performed By: #### Taco FR, BMP #### [place] [address] #### CBC, ADIFF, ANEU #### [address] [address] RBC (Bld) [#/Vol] 4.56 10 6/mcL Normal 4.20-5.40 [facility] ([place]) Comment on above: Performed By: #### G FR, BMP #### [address] [address] #### CBC, ADIFF, ANEU #### [place] [address] [place], [place] [address] WBC (Bld) [#/Vol] 5.80 10 3/mcL Normal 4.60-10.80 [facility] ([place]) Comment on above: Performed By: #### G FR, BMP #### [address] [address] #### CBC, ADIFF, ANEU #### [place] [address] [place], [place] [address] CT ABDOMEN/PELVIS W/O CONTRA STon 12-13-2019 CT [...] Date: 12/13/2019 3:36:55 PM Ordering Provider:Fermin Dia [facility] ([place]) UAon 12-13-2019 Color (U) Light yellow Normal [facility] ([place]) Comment on above: Performed By: #### U AMICAO, UA #### [place] [address] Glucose (U) [Mass/Vol] 500 mg/dL Abnormal Negative [facility] ([place]) Comment on above: Performed By: #### U AMICAO, UA #### [place] [address] Ketones Ql (U) Negative Normal Negative [facility] ([place]) Comment on above: Performed By: #### U AMICAO, UA #### [place] [address] UA Appear Slightly Cloudy Abnormal Clear [facility] ([place]) Comment on above: Performed By: #### U AMICAO, UA #### [place] [address] UA Blood Large Abnormal Negative [facility] ([place]) Comment on above: Performed By: #### U AMICAO, UA #### [place] [address] UA Leuk Est Negative Normal Negative [facility] ([place]) Comment on above: Performed By: #### U AMICAO, UA #### [place] [address] UA Nitrite Negative Normal Negative [facility] ([place]) Comment on above: Performed By: #### U AMICAO, UA #### [place] [address] UA pH 5.0 Normal 5.0 - 8.0 [facility] ([place]) Comment on above: Performed By: #### U AMICAO, UA #### [place] [id number] UA Protein Negative Normal Negative [facility] ([place]) Comment on above: Performed By: #### U AMICAO, UA #### [place] [address] UA Spec Grav <=1.005 Abnormal 1.015-1.02 5 [facility] ([place]) Comment on above: Performed By: #### U AMICAO, UA #### [facility] [address] [place] [address] UA Specimen Type Clean Catch Normal [facility] ([place]) Comment on above: Performed By: #### U AMICAO, UA #### [facility] [address] [place] [address] UA Urobilinogen 0.2 E.U./dL Normal 0.2-1.0 [facility] ([place]) Comment on above: Performed By: #### U AMICAO, UA #### [facility] [address] [place] [address] Urobilinogen Qn (U) Negative Normal Negative [facility] ([place]) Comment on above: Performed By: #### U AMICAO, UA #### [facility] [address] [place] [address] [facility] CNPN Telephone (PREANME) TERRANCE BRAR ([id number]) 1965 F Date Time Provider Department 09/05/19 CAITY BURDEN (MOTOR BLOCK MECHANIC) PREANME During your visit today, we recorded the following information about you: Caity Burden APRN.LOGGER ALL ROUND 09/05/2019 9:53 AM Signed Notifying surgeon's office and PCP, pt's pre-op A1c 14.4. Pt is a IDDM, last A1c 13.0 07/13/2019. Please advise. She is scheduled for LAPAROSCOPIC INCISIONAL RECURRENT HERNIA REPAIR W/ MESH REDUCIBLE ADULT With Dr. Dee 09/11/2019. Caity Burden APRN.LOGGER ALL ROUND 09/05/2019 9:59 AM Signed Also noted to [...] PA-C 09/06/2019 2:26 PM Signed Anam Flanagan (Senior Client Advisor) Bertram; Anitha Domingo LPN; Red Garcia 16 [...] surgery. 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 DEZ Woody MD, CMA, [place] 09/11/2019 2:08 PM Signed Detailed message left [...] to how this appt can occur in [facility] Carlee Valencia III MD Allergies As [...] Date Reviewed: 09/04/2019 Reviewed by: Caity Flanagan (Senior Client Advisor) Bertram - Fully Assessed Reason for Visit: [...] needle for each dose.* OMEPRAZOLE 20 MG CAPSULE,BRETHA* take 1 capsule daily 30 minut* X [...] 12/07/2008 More... Routine General Medical Examination at [facility]*12/10/2008 06/03/2015 More... Benign neoplasm of colon [D12.6] [...] 09/11/19 [place] [facility]COon 03-11-2018 [facility] Letter Text [facility] [address] [place] [id number]: [phone] Uptmhag E. Shafer, [facility] Hospital[facility]isa 2017[facility] Hospital[facility] Brar[address] [facility] [id number] Carlos Panchito Maykel,We missed seeing you for your scheduled appointment with Dr. Calixto on03/08/18 at the [facility].Our goal is to offer the best possible care to our patients, so we areconcerned when you are unable to keep a scheduled appointment.Please call us at [phone] so that we can reschedule your appointment fora day and time that will work for you.If you find it difficult to keep your appointment, please notify our officeat least 24 hours in advance so that we may reschedule your appointment.We are glad that you have chosen [facility] for yourcardiovascular needs and hope to continue serving you in the future.Sincerely,Mary Alice Calixto MD(Signed electronically to expedite mailing) Normal [facility] Office Visit: [facility] Fall risk assessment No Invalid Interpretation Code [facility] Work Phone: Protein mass conc yes Invalid Interpretation Code [facility] Work Phone: Protein mass conc Done Invalid Interpretation Code [facility] Work Phone: Tobacco smoking status NHIS Current every day smoker Invalid Interpretation Code [facility] Work Phone: Lab Report: Culture, Urineon 02-22-2015 CUUR . Invalid Interpretation Code [facility] Work Phone: Lab Report: (P) Urinalysis, Completeon 02-20-2015 Specific gravity Refractometry Relative Density (U) 1.015 Invalid Interpretation Code 1.002-1.03 0 [facility] Work Phone: Lab Report: BNP,B-Type NATRI URETIC PEPTIDEon 02-20-2015 Natriuretic peptide B mass conc (Bld) 8.6 pg/mL Invalid Interpretation Code 0-100 [facility] Work Phone: Lab Report: Basic Metabolic Profile (BMP)on 02-20-2015 Anion gap 4 molar conc 9 Invalid Interpretation Code 5-15 [facility] Work Phone: Calcium mass conc 8.3 mg/dL Low 8.5-10.1 [facility] Work Phone: [phone] Chloride molar conc 100 mmol/L Invalid Interpretation Code 98-107 [facility] Work Phone: [phone] CO2 ppres (BldV) 27.0 mmol/L Invalid Interpretation Code 21.0-32.0 [facility] Work Phone: [phone] Creatinine mass conc 1.2 mg/dL High 0.6-1.0 [facility] Work Phone: [phone] EST GFR - AA 61 mL/min Invalid Interpretation Code >60 [facility] Work Phone: [phone] GFR/1.73 sq M predicted among non-blacks MDRD vol rate/area (S/P/Bld) 50 mL/min/{1.73_m2} Low >60 [facility] Work Phone: [phone] Glucose mass conc 170 mg/dL High 70-110 [facility] Work Phone: [phone] Potassium molar conc 3.3 mmol/L Low 3.5-5.1 [facility] Work Phone: [phone] Sodium molar conc 136 mmol/L Invalid Interpretation Code 136-145 [facility] Work Phone: [phone] Urea nitrogen mass conc 10 mg/dL Invalid Interpretation Code 7-18 [facility] Work Phone: [phone] Urea nitrogen/Creatinine mass ratio 8.3 RATIO Low 10-20 [facility] Work Phone: [phone] Lab Report: CBC W/Diff, Auto matedon 02-20-2015 Absolute Neut 5.3 X10 3/UL Invalid Interpretation Code 2.0-7.7 [facility] Work Phone: [phone] Basophils/100 WBC Auto (Bld) 0.5 % Invalid Interpretation Code 0-1 [facility] Work Phone: [phone] Eosinophils/100 WBC Auto (Bld) 1.5 % Invalid Interpretation Code 0-5 [facility] Work Phone: [phone] Erythrocyte distribution width Auto Ratio (RBC) 47.5 fL High 35.1-43.9 [facility] Work Phone: [phone] Hematocrit Auto Volume Fraction (Bld) 36.1 % Low 37-47 [facility] Work Phone: Hemoglobin mass conc (Bld) 11.5 g/dL Low 12.0-15.0 [facility] Work Phone: [phone] Lymphocytes Auto #/vol (Bld) 1.54 X10 3/UL Invalid Interpretation Code 0.83-4.51 [facility] Work Phone: [phone] Lymphocytes/100 WBC Auto (Bld) 20.7 % Invalid Interpretation Code 19-41 [facility] Work Phone: MCH Auto Entitic mass (RBC) 29.9 pg Invalid Interpretation Code 27.0-32.0 [facility] Work Phone: MCHC Auto mass conc (RBC) 31.9 G/GL Low 32-36 [facility] Work Phone: MCV Auto Entitic volume (RBC) 93.8 fL Invalid Interpretation Code 81-99 [facility] Work Phone: [phone] Monocytes/100 WBC Auto (Bld) 5.5 % Invalid Interpretation Code 0-10 [facility] Work Phone: Neutrophils/100 WBC Auto (Bld) 71.5 % High 47-70 [facility] Work Phone: Platelet mean volume Fercho-Jana Entitic volume (Bld) 9.9 fL Invalid Interpretation Code 6.2-12.0 [facility] Work Phone: Platelets Auto #/vol (Bld) 259 10*3/mm3 Invalid Interpretation Code 150-450 [facility] Work Phone: RBC Auto #/vol (Bld) 3.85 10*6/uL Low 4.2-5.4 [facility] Work Phone: WBC Auto #/vol (Bld) 7.4 10*3/uL Invalid Interpretation Code 4.4-11.0 [facility] Work Phone: Lab Report: Thyroid Stim Hor ivory (TSH)on 02-20-2015 Thyrotropin Qn 79.90 u[iU]/mL High 0.358-3.74 [facility] No w Clinic Work Phone: Lab Report: Troponin-Ion Troponin I.cardiac mass conc ng/mL Invalid Interpretation Code <0.06 [facility] Work Phone: Lab Report: A1Con 08-11-2010 Hemoglobin A1c/Hemoglobin.total mass fraction (Bld) 9.6 % High 4.0-6.3 [facility] Work Phone: Lab Report: CMPon 08-11-2010 Albumin mass conc 3.6 g/dL Normal 3.4-5.0 [facility] Work Phone: ALP enzyme act/vol (Bld) 52 U/L Normal 50-136 [facility] Work Phone: ALT enzyme act/vol 31 U/L Normal 12-78 [facility] No w Clinic Work Phone: AST enzyme act/vol 14 U/L Low 15-37 [facility] No w Clinic Work Phone: Bilirubin mass conc 0.60 mg/dL Normal 0.00-1.00 [facility] Work Phone: Lab Report: LIPIDon 08-11-20 10 Cholesterol in HDL mass conc 28 mg/dL Low [facility] Work Phone: Cholesterol in LDL mass conc 106 mg/dL Normal 0-130 [facility] Work Phone: Cholesterol mass conc 189 mg/dL Normal 200 [facility] Work Phone: Lipoprotein.pre-beta mass conc 55 mg/dL High 5-40 [facility] Work Phone: Triglyceride mass conc 275 mg/dL High WC H [facility] Work Phone: Culture, urine Bacteria identified Cx Nom (U) Negative [facility] Work Phone: [phone] Bacteria identified Cx Nom (U) Mixed Gram Pos & Gram Neg Org [facility] Work Phone: Bacteria identified Cx Nom (U) Culture exhibits no growth. [facility] Work Phone: Vital Signs Date Time Vital Sign Value Performing Clinician Laure graf 08-10-2025 08:33-0400 Body height 152.[address] Lizet Linares MD Work Phone: [facility] 07-17-2025 08:59-0400 Body height 152.[address] Lizet Linares MD Work Phone: [facility] 07-17-2025 08:59-0400 Body mass index (BMI) [Ratio] 40.6 kg/m2 Dr. Lizet Linares MD Work Phone: [facility] 07-17-2025 08:59-0400 Body weight 94.[address] Lizet Linares MD Work Phone: [facility] 07-17-2025 08:59-0400 Diastolic blood pressure 78 mm[Hg] Dr. Lizet Linares MD Work Phone: [facility] 07-17-2025 08:59-0400 Heart rate 67 /min Dr. Lizet Linares MD Work Phone: [facility] 07-17-2025 08:59-0400 Respiratory rate 17 /min Dr. Lizet Linares MD Work Phone: [facility] 07-17-2025 08:59-0400 SaO2% (BldA) [Mass fraction] 98 % Dr. Lizet Linares MD Work Phone: [facility] 07-17-2025 08:59-0400 Systolic blood pressure 155 mm[Hg] Dr. Lizet Linares MD Work Phone: [facility] 06-15-2025 13:43-0400 Body height 152.[address] Lizet Linares MD Work Phone: [facility] 06-15-2025 13:43-0400 Body temperature 97.9 [degF] Dr. Lizet Linares MD Work Phone: [facility] 06-15-2025 13:43-0400 Diastolic blood pressure 70 mm[Hg] Dr. Lizet Linares MD Work Phone: [facility] 06-15-2025 13:43-0400 Heart rate 74 /min Dr. Lizet Linares MD Work Phone: [facility] 06-15-2025 13:43-0400 Respiratory rate 16 /min Dr. Lizet Linares MD Work Phone: [facility] 06-15-2025 13:43-0400 SaO2% (BldA) [Mass fraction] 94 % Dr. Lizet Linares MD Work Phone: [facility] 06-15-2025 13:43-0400 Systolic blood pressure 109 mm[Hg] Dr. Lizet Linares MD Work Phone: [facility] 06-07-2025 09:44-0400 Body height 152.[address] Lizet Linares MD Work Phone: [facility] 06-07-2025 09:44-0400 Body mass index (BMI) [Ratio] 39 kg/m2 Dr. Lizet Linares MD Work Phone: [facility] 06-07-2025 09:44-0400 Body temperature 98.3 [degF] Dr. Lizet Linares MD Work Phone: [facility] 06-07-2025 09:44-0400 Body weight 90.[address] Lizet Linares MD Work Phone: [facility] 06-07-2025 09:44-0400 Diastolic blood pressure 78 mm[Hg] Dr. Lizet Linares MD Work Phone: [facility] 06-07-2025 09:44-0400 Heart rate 73 /min Dr. Lizet Linares MD Work Phone: [facility] 06-07-2025 09:44-0400 Respiratory rate 16 /min Dr. Lizet Linares MD Work Phone: [facility] 06-07-2025 09:44-0400 SaO2% (BldA) [Mass fraction] 98 % Dr. Lizet Linares MD Work Phone: [facility] 06-07-2025 09:44-0400 Systolic blood pressure 118 mm[Hg] Dr. Lizet Linares MD Work Phone: [facility] 06-01-2025 15:01-0400 Body temperature 98.2 [degF] Dr. Lizet Linares MD Work Phone: [facility] 06-01-2025 15:01-0400 Diastolic blood pressure 57 mm[Hg] Dr. Lizet Linares MD Work Phone: [facility] 06-01-2025 15:01-0400 Heart rate 67 /min Dr. Lizet Linares MD Work Phone: [facility] 06-01-2025 15:01-0400 Respiratory rate 18 /min Dr. Lizet Linares MD Work Phone: [facility] 06-01-2025 15:01-0400 SaO2% (BldA) [Mass fraction] 97 % Dr. Lizet Linares MD Work Phone: [facility] 06-01-2025 15:01-0400 Systolic blood pressure 138 mm[Hg] Dr. Lizet Linares MD Work Phone: [facility] 05-29-2025 17:25-0400 Body height 152.[address] Lizet Linares MD Work Phone: [facility] 05-29-2025 17:25-0400 Body weight 91.[address] Lizet Linares MD Work Phone: [facility] 05-28-2025 13:15-0400 Body temperature 98.6 [degF] Dr. Lizet Linares MD Work Phone: [facility] 05-28-2025 13:15-0400 Diastolic blood pressure 62 mm[Hg] Dr. Lizet Linares MD Work Phone: [facility] 05-28-2025 13:15-0400 Heart rate 64 /min Dr. Lizet Linares MD Work Phone: [facility] 05-28-2025 13:15-0400 Respiratory rate 18 /min Dr. Lizet Linares MD Work Phone: [facility] 05-28-2025 13:15-0400 SaO2% (BldA) [Mass fraction] 98 % Dr. Lizet Linares MD Work Phone: [facility] 05-28-2025 13:15-0400 Systolic blood pressure 146 mm[Hg] Dr. Lizet Linares MD Work Phone: [facility] 05-28-2025 12:42-0400 Body height 152.[address] Lizet Linares MD Work Phone: [facility] 05-28-2025 12:42-0400 Body mass index (BMI) [Ratio] 39.2 kg/m2 Dr. Lizet Linares MD Work Phone: [facility] 05-28-2025 12:42-0400 Body weight 91.[address] Lizet Linares MD Work Phone: [facility] 05-26-2025 06:00-0400 Diastolic blood pressure 64 mm[Hg] Dr. Lizet Linares MD Work Phone: [facility] 05-26-2025 06:00-0400 SaO2% (BldA) [Mass fraction] 96 % Dr. Lizet Linares MD Work Phone: [facility] 05-26-2025 06:00-0400 Systolic blood pressure 135 mm[Hg] Dr. Lizet Linares MD Work Phone: [facility] 05-26-2025 04:08-0400 Body temperature 98.8 [degF] Dr. Lizet Linares MD Work Phone: [facility] 05-26-2025 04:08-0400 Heart rate 80 /min Dr. Lizet Linares MD Work Phone: [facility] 05-26-2025 04:08-0400 Respiratory rate 16 /min Dr. Lizet Linares MD Work Phone: [facility] 05-26-2025 00:26-0400 Body height 152.[address] Lizet Linares MD Work Phone: [facility] 05-26-2025 00:26-0400 Body mass index (BMI) [Ratio] 41.6 kg/m2 Dr. Lizet Linares MD Work Phone: [facility] 05-26-2025 00:26-0400 Body weight 96.[address] Lizet Linares MD Work Phone: [facility] 03-16-2025 07:49-0400 Body height 152.[address] Lizet Linares MD Work Phone: [facility] 01-30-2025 13:21-0400 Body mass index (BMI) [Ratio] 39 kg/m2 Dr. Lizet Linares MD Work Phone: [facility] 01-30-2025 13:21-0400 Body weight 90.[address] Lizet Linares MD Work Phone: [facility] 01-30-2025 13:21-0400 Diastolic blood pressure 75 mm[Hg] Dr. Lizet Linares MD Work Phone: [facility] 01-30-2025 13:21-0400 Heart rate 81 /min Dr. Lizet Linares MD Work Phone: [facility] 01-30-2025 13:21-0400 Respiratory rate 14 /min Dr. Lizet Linares MD Work Phone: [facility] 01-30-2025 13:21-0400 SaO2% (BldA) [Mass fraction] 95 % Dr. Lizet Linares MD Work Phone: [facility] 01-30-2025 13:21-0400 Systolic blood pressure 117 mm[Hg] Dr. Lizet Linares MD Work Phone: [facility] 01-22-2025 14:00-0400 Diastolic blood pressure 89 mm[Hg] Dr. Lizet Linares MD Work Phone: [facility] 01-22-2025 14:00-0400 Heart rate 78 /min Dr. Lizet Linares MD Work Phone: [facility] 01-22-2025 14:00-0400 Respiratory rate 18 /min Dr. Lizet Linares MD Work Phone: [facility] 01-22-2025 14:00-0400 SaO2% (BldA) [Mass fraction] 98 % Dr. Lizet Linares MD Work Phone: [facility] 01-22-2025 14:00-0400 Systolic blood pressure 117 mm[Hg] Dr. Lizet Linares MD Work Phone: [facility] 01-22-2025 13:50-0400 Body temperature 98.2 [degF] Dr. Lizet Linares MD Work Phone: [facility] 01-22-2025 10:42-0400 Body height 152.[address] Lizet Linares MD Work Phone: [facility] 01-22-2025 10:42-0400 Body mass index (BMI) [Ratio] 39.3 kg/m2 Dr. Lizet Linares MD Work Phone: [facility] 01-22-2025 10:42-0400 Body weight 91.[address] Lizet Linares MD Work Phone: [facility] 10-24-2024 17:21-0500 Body temperature 97.7 [degF] Dr. Lizet Linares MD Work Phone: [facility] 10-24-2024 17:21-0500 Diastolic blood pressure 63 mm[Hg] Dr. Lizet Linares MD Work Phone: [facility] 10-24-2024 17:21-0500 Heart rate 78 /min Dr. Lizet Linares MD Work Phone: [facility] 10-24-2024 17:21-0500 Respiratory rate 16 /min Dr. Lizet Linares MD Work Phone: [facility] 10-24-2024 17:21-0500 SaO2% (BldA) [Mass fraction] 96 % Dr. Lizet Linares MD Work Phone: [facility] 10-24-2024 17:21-0500 Systolic blood pressure 139 mm[Hg] Dr. Lizet Linares MD Work Phone: [facility] 10-24-2024 11:09-0500 Body mass index (BMI) [Ratio] 39.2 kg/m2 Dr. Lizet Linares MD Work Phone: [facility] 10-24-2024 11:09-0500 Body weight [address] Lizet Linares MD Work Phone: [facility] 01-20-2024 05:27-0400 Body temperature 98.6 [degF] Dr. Jarred Lopez Work Phone: [facility] 01-20-2024 05:27-0400 Diastolic blood pressure 58 mm[Hg] Dr. Jarred Lopez Work Phone: 7(211)984-341374 [place] [address] 01-20-2024 05:27-0400 Heart rate 76 /min Dr. Jarred Lopez Work Phone: 1(576)443-981474 [place] [address] 01-20-2024 05:27-0400 Respiratory rate 13 /min Dr. Jarred Lopez Work Phone: 9(693)825-636874 [place] [address] 01-20-2024 05:27-0400 SaO2% (BldA) [Mass fraction] 94 % Dr. Jarred Lopez Work Phone: 2(804)552-141374 [place] [address] 01-20-2024 05:27-0400 Systolic blood pressure 127 mm[Hg] Dr. Jarred Lopez Work Phone: 9(443)091-200474 [place] [address] 01-20-2024 01:04-0400 Body height 152.[address] Jarred Lopez Work Phone: 4(909)767-955974 [place] [address] 01-20-2024 01:04-0400 Body mass index (BMI) [Ratio] 36.7 kg/m2 Dr. Jarred Lopez Work Phone: 1(746)024-204074 [place] [address] 01-20-2024 01:04-0400 Body weight 85.[address] Jarred Lopez Work Phone: 1(831)356-143774 [place] [address] 01-05-2024 13:45-0400 Body temperature 98.1 [degF] Dr. Jarred Lopez Work Phone: 6(743)623-706374 [place] [address] 01-05-2024 13:45-0400 Diastolic blood pressure 56 mm[Hg] Dr. Jarred Lopez Work Phone: 4(099)038-206374 [place] [address] 01-05-2024 13:45-0400 Heart rate 78 /min Dr. Jarred Lopez Work Phone: 9(431)549-568274 [place] [address] 01-05-2024 13:45-0400 Respiratory rate 18 /min Dr. Jarred Lopez Work Phone: 2(194)502-351674 [place] [address] 01-05-2024 13:45-0400 SaO2% (BldA) [Mass fraction] 96 % Dr. Jarred Lopez Work Phone: 9(288)497-372587 [place] [address] 01-05-2024 13:45-0400 Systolic blood pressure 96 mm[Hg] Dr. Jarred Lopez Work Phone: 6(456)775-573574 [place] [address] 01-04-2024 03:05-0400 Body mass index (BMI) [Ratio] 32.8 kg/m2 Dr. Jarred Lopez Work Phone: 8(724)319-849174 [place] [address] 01-04-2024 03:05-0400 Body weight 76.[address] Jarred Lopez Work Phone: 7(368)428-135374 [place] [address] 01-03-2024 22:31-0400 Inhaled oxygen flow rate 2 L/min Dr. Jarred Lopez Work Phone: 6(157)731-930374 [place] [address] 01-03-2024 12:42-0400 Diastolic blood pressure 64 mm[Hg] Dr. Jarred Lopez Work Phone: 2(747)874-688674 [place] [address] 01-03-2024 12:42-0400 Heart rate 88 /min Dr. Jarred Lopez Work Phone: 6(433)967-329974 [place] [address] 01-03-2024 12:42-0400 Systolic blood pressure 127 mm[Hg] Dr. Jarred Lopez Work Phone: 4(610)084-017674 [place] [address] 01-03-2024 11:52-0400 Body temperature 98 [degF] Dr. Jarred Lopez Work Phone: 3(020)953-903974 [place] [address] 01-03-2024 11:52-0400 Respiratory rate 16 /min Dr. Jarred Lopez Work Phone: 9(645)967-942574 [place] [address] 01-03-2024 11:52-0400 SaO2% (BldA) [Mass fraction] 94 % Dr. Jarred Lopez Work Phone: 9(424)727-813874 [place] [address] 01-03-2024 05:53-0400 Body mass index (BMI) [Ratio] 32.7 kg/m2 Dr. Jarred Lopez Work Phone: [facility] 01-03-2024 05:53-0400 Body weight [address] Jarred Lopez Work Phone: 4(130)950-282187 [place] [address] 01-02-2024 14:55-0400 Body height 152.[address] Jarred Lopez Work Phone: 7(323)782-676174 [place] [address] 01-01-2024 22:20-0500 Body temperature 97.6 [degF] Dr. Jarred Lopez Work Phone: 1(658)183-559374 [place] [address] 01-01-2024 22:20-0500 Diastolic blood pressure 62 mm[Hg] Dr. Jarred Lopez Work Phone: 5(651)369-947874 [place] [address] 01-01-2024 22:20-0500 Heart rate 84 /min Dr. Jarred Lopez Work Phone: 2(396)099-277374 [place] [address] 01-01-2024 22:20-0500 Respiratory rate 13 /min Dr. Jarred Lopez Work Phone: 9(286)281-035874 [place] [address] 01-01-2024 22:20-0500 SaO2% (BldA) [Mass fraction] 99 % Dr. Jarred Lopez Work Phone: 2(438)517-850374 [place] [address] 01-01-2024 22:20-0500 Systolic blood pressure 146 mm[Hg] Dr. Jarred Lopez Work Phone: 8(140)676-601074 [place] [address] 01-01-2024 18:32-0500 Body height 152.[address] Jarred Lopez Work Phone: 9(164)075-499374 [place] [address] 01-01-2024 18:32-0500 Body mass index (BMI) [Ratio] 33.1 kg/m2 Dr. Jarred Lopez Work Phone: 5(917)708-952774 [place] [address] 01-01-2024 18:32-0500 Body weight [address] Jarred Lopez Work Phone: 3(895)167-300287 [place] [address] 11-24-2023 15:05-0500 Body temperature 98.5 [degF] Dr. Jarred Lopez Work Phone: 5(157)939-274887 [place] [address] 11-24-2023 15:05-0500 Diastolic blood pressure 63 mm[Hg] Dr. Jarred Lopez Work Phone: 8(488)052-848774 [place] [address] 11-24-2023 15:05-0500 Heart rate 66 /min Dr. Jarred Loepz Work Phone: 3(768)978-969974 [place] [address] 11-24-2023 15:05-0500 Respiratory rate 16 /min Dr. Jarred Lopez Work Phone: 6(105)392-894174 [place] [address] 11-24-2023 15:05-0500 SaO2% (BldA) [Mass fraction] 96 % Dr. Jarred Lopez Work Phone: 3(841)041-123074 [place] [address] 11-24-2023 15:05-0500 Systolic blood pressure 117 mm[Hg] Dr. Jarred Lopez Work Phone: 5(143)888-032074 [place] [address] 11-24-2023 06:00-0500 Body mass index (BMI) [Ratio] 35.9 kg/m2 Dr. Jarred Lopez Work Phone: 2(532)244-287774 [place] [address] 11-24-2023 06:00-0500 Body weight 83.[address] Jarred Lopez Work Phone: 8(295)132-103874 [place] [address] 11-19-2023 10:27-0500 Body temperature 98.1 [degF] Dr. Jarred Lopez Work Phone: 2(092)760-390674 [place] [address] 11-19-2023 10:27-0500 Diastolic blood pressure 74 mm[Hg] Dr. Jarred Lopez Work Phone: 3(302)447-160674 [place] [address] 11-19-2023 10:27-0500 Heart rate 72 /min Dr. Jarred Lopez Work Phone: 1(536)358-235074 [place] [address] 11-19-2023 10:27-0500 Respiratory rate 15 /min Dr. Jarred Lopez Work Phone: 8(844)139-079574 [place] [address] 11-19-2023 10:27-0500 SaO2% (BldA) [Mass fraction] 99 % Dr. Jarred Lopez Work Phone: [facility] 11-19-2023 10:27-0500 Systolic blood pressure 134 mm[Hg] Dr. Jarred Lopez Work Phone: [facility] 11-19-2023 08:20-0500 Body height 152.[address] Jarred Lopez Work Phone: [facility] 11-19-2023 08:20-0500 Body mass index (BMI) [Ratio] 36.9 kg/m2 Dr. Jarred Lopez Work Phone: [facility] 11-19-2023 08:20-0500 Body weight 85.[address] Jarred Lopez Work Phone: [facility] 06-10-2023 16:53-0400 Respiratory rate 16 /min Dr. Ganesh Garcia Work Phone: 9(057)027-954002 [address] 06-10-2023 14:57-0400 Body height 152.[address] Ganesh Garcia Work Phone: 8(167)735-801637 [place] [address] 06-10-2023 14:57-0400 Body temperature 96.4 [degF] Dr. Ganesh Garcia Work Phone: 3(170)041-095037 [place] [address] 06-10-2023 14:57-0400 Diastolic blood pressure 88 mm[Hg] Dr. Ganesh Garcia Work Phone: 7(877)672-178502 [address] 06-10-2023 14:57-0400 Heart rate 93 /min Dr. Ganesh Garcia Work Phone: 8(611)498-806237 [place] [address] 06-10-2023 14:57-0400 SaO2% (BldA) [Mass fraction] 100 % Dr. Ganesh Garcia Work Phone: 7(996)034-178802 [address] 06-10-2023 14:57-0400 Systolic blood pressure 119 mm[Hg] Dr. Ganesh Garcia Work Phone: 1(987)073-592337 [place] [address] 06-06-2023 20:09-0400 Diastolic blood pressure 97 mm[Hg] Dr. Ganesh Garcia Work Phone: 1(405)435-311102 [address] 08-13-2023 20:09-0400 Heart rate 71 /min Dr. Ganesh Garcia Work Phone: 0(557)848-395837 [place] [address] 06-06-2023 20:09-0400 Respiratory rate 16 /min Dr. Ganesh Garcia Work Phone: 3(003)989-511037 [place] [address] 06-06-2023 20:09-0400 SaO2% (BldA) [Mass fraction] 97 % Dr. Ganesh Garcia Work Phone: 4(407)798-284037 [place] [address] 06-06-2023 20:09-0400 Systolic blood pressure 178 mm[Hg] Dr. Ganesh Garcia Work Phone: 0(969)819-831237 [place] [address] 06-06-2023 18:42-0400 Body mass index (BMI) [Ratio] 38 kg/m2 Dr. Ganesh Garcia Work Phone: 3(818)941-974037 [place] [address] 06-06-2023 18:42-0400 Body weight [address] Ganesh Garcia Work Phone: 9(027)558-242137 [place] [address] 06-06-2023 17:48-0400 Body height 152.[address] Ganesh Garcia Work Phone: 4(296)849-015737 [place] [address] 06-06-2023 17:48-0400 Body temperature 96.9 [degF] Dr. Ganesh Garcia Work Phone: 8(456)235-006537 [place] [address] 06-04-2023 21:40-0400 Diastolic blood pressure 58 mm[Hg] Dr. Ganesh Garcia Work Phone: 5(214)649-667337 [place] [address] 06-04-2023 21:40-0400 Heart rate 85 /min Dr. Ganesh Garcia Work Phone: 9(852)162-790337 [place] [address] 06-04-2023 21:40-0400 Respiratory rate 18 /min Dr. Ganesh Garcia Work Phone: 4(620)271-425537 [place] [address] 06-04-2023 21:40-0400 SaO2% (BldA) [Mass fraction] 93 % Dr. Ganesh Garcia Work Phone: 9(723)010-786237 [place] [address] 06-04-2023 21:40-0400 Systolic blood pressure 118 mm[Hg] Dr. Ganesh Garcia Work Phone: 3(764)683-753637 [place] [address] 06-04-2023 19:28-0400 Body mass index (BMI) [Ratio] 37.9 kg/m2 Dr. Ganesh Garcia Work Phone: [facility] 06-04-2023 19:28-0400 Body weight 87.[address] Ganesh Garcia Work Phone: [facility] 06-04-2023 13:49-0400 Body height 152.[address] Ganesh Garcia Work Phone: [facility] 06-04-2023 13:49-0400 Body temperature 96.6 [degF] Dr. Ganesh Garcia Work Phone: [facility] 04-23-2023 14:35-0400 Body temperature 100 [degF] Vernon Degroot [employer] Work Phone: [facility] 04-23-2023 14:35-0400 Body weight 81.1 kg Vernon Degroot [employer] Work Phone: [facility] 04-23-2023 14:35-0400 Diastolic blood pressure 82 mm[Hg] Vernon Degroot [employer] Work Phone: [facility] 04-23-2023 14:35-0400 Heart rate 94 /min Vernon Degroot [employer] Work Phone: [facility] 04-23-2023 14:35-0400 Respiratory rate 21 /min Vernon Degroot [employer] Work Phone: [facility] 04-23-2023 14:35-0400 SaO2% (BldA) [Mass fraction] 99 % Vernon Degroot [employer] Work Phone: [facility] 04-23-2023 14:35-0400 Systolic blood pressure 130 mm[Hg] Vernon Degroot [employer] Work Phone: [facility] 04-07-2023 13:09-0400 Body height 152.4 cm Dwayne Lopez MD Work Phone: [facility] 04-07-2023 13:09-0400 Body weight 81.65 kg Dwayne Lopez MD Work Phone: [facility] 04-07-2023 13:09-0400 Diastolic blood pressure 74 mm[Hg] Dwayne Lopez MD Work Phone: [facility] 04-07-2023 13:09-0400 Heart rate 80 /min Dwayne Lopez MD Work Phone: [facility] 04-07-2023 13:09-0400 Respiratory rate 16 /min Dwayne Lopez MD Work Phone: [facility] 04-07-2023 13:09-0400 Systolic blood pressure 112 mm[Hg] Dwayne Lopez MD Work Phone: [facility] 03-28-2023 09:08-0400 Body mass index (BMI) [Ratio] 35.6 kg/m2 Dr. Lizet Linares Work Phone: [facility] 03-28-2023 09:08-0400 Body weight 82.[address] Lizet Linares Work Phone: [facility] 03-28-2023 08:40-0400 Body height 152.[address] Lizet Linares Work Phone: [facility] 03-28-2023 08:40-0400 Body temperature 95 [degF] Dr. Lizet Linares Work Phone: [facility] 03-28-2023 08:40-0400 Diastolic blood pressure 76 mm[Hg] Dr. Lizet Linaers Work Phone: [facility] 03-28-2023 08:40-0400 Heart rate 122 /min Dr. Lizet Linares Work Phone: [facility] 03-28-2023 08:40-0400 Respiratory rate 18 /min Dr. Lizet Linares Work Phone: [facility] 03-28-2023 08:40-0400 SaO2% (BldA) [Mass fraction] 100 % Dr. Lizet Linares Work Phone: [facility] 03-28-2023 08:40-0400 Systolic blood pressure 133 mm[Hg] Dr. Lizet Linares Work Phone: [facility] 03-24-2023 10:18-0400 Body weight 83.92 kg Dwayne Lopez MD Work Phone: [facility] 03-24-2023 10:18-0400 Diastolic blood pressure 64 mm[Hg] Dwayne Lopez MD Work Phone: [facility] 03-24-2023 10:18-0400 Heart rate 84 /min Dwayne Lopez MD Work Phone: [facility] 03-24-2023 10:18-0400 Respiratory rate 16 /min Dwayne Lopez MD Work Phone: [facility] 03-24-2023 10:18-0400 Systolic blood pressure 110 mm[Hg] Dwayne Lopez MD Work Phone: [facility] 02-11-2023 13:05-0400 Body height 152.[address] Lizet Linares Work Phone: [facility] 02-11-2023 13:05-0400 Body mass index (BMI) [Ratio] 35.9 kg/m2 Dr. Lizet Linares Work Phone: [facility] 02-11-2023 13:05-0400 Body weight 83.[address] Lizet Linares Work Phone: [facility] 02-11-2023 13:05-0400 Diastolic blood pressure 83 mm[Hg] Dr. Lizet Linares Work Phone: [facility] 02-11-2023 13:05-0400 Heart rate 88 /min Dr. Lizet Linares Work Phone: [facility] 02-11-2023 13:05-0400 Respiratory rate 18 /min Dr. Lizet Linares Work Phone: [facility] 02-11-2023 13:05-0400 SaO2% (BldA) [Mass fraction] 99 % Dr. Lizet Linares Work Phone: [facility] 02-11-2023 13:05-0400 Systolic blood pressure 152 mm[Hg] Dr. Lizet Linares Work Phone: [facility] 01-30-2023 00:39-0400 Body temperature 98 [degF] Dr. Lizet Linares Work Phone: [facility] 01-30-2023 00:39-0400 Diastolic blood pressure 85 mm[Hg] Dr. Lizet Linares Work Phone: [facility] 01-30-2023 00:39-0400 Heart rate 85 /min Dr. Lizet Linares Work Phone: [facility] 01-30-2023 00:39-0400 Respiratory rate 19 /min Dr. Lizet Linares Work Phone: [facility] 01-30-2023 00:39-0400 SaO2% (BldA) [Mass fraction] 97 % Dr. Lizet Linares Work Phone: [facility] 01-30-2023 00:39-0400 Systolic blood pressure 159 mm[Hg] Dr. Lizet Linares Work Phone: [facility] 01-29-2023 22:02-0400 Body mass index (BMI) [Ratio] 36.6 kg/m2 Dr. Lizet Linares Work Phone: [facility] 01-29-2023 22:02-0400 Body weight 85.[address] Lizet Linares Work Phone: [facility] 01-29-2023 21:18-0400 Body height 152.[address] Lizet Linares Work Phone: [facility] 01-07-2023 15:19-0400 Body mass index (BMI) [Ratio] 36.2 kg/m2 Dr. Ganesh Garcia Work Phone: 9(154)125-341737 [place] [address] 01-07-2023 15:19-0400 Body weight 84.[address] Ganesh Garcia Work Phone: 0(365)844-129137 [place] [address] 01-07-2023 15:17-0400 Body height 152.[address] Ganesh Garcia Work Phone: 3(603)001-685037 [place] [address] 01-07-2023 15:17-0400 Body temperature 96 [degF] Dr. Ganesh Garcia Work Phone: 2(267)345-951437 [place] [address] 01-07-2023 15:17-0400 Diastolic blood pressure 70 mm[Hg] Dr. Ganesh Garcia Work Phone: 1(247)272-477237 [place] [address] 01-07-2023 15:17-0400 Heart rate 95 /min Dr. Ganesh Garcia Work Phone: 7(084)745-100537 [place] [address] 01-07-2023 15:17-0400 Respiratory rate 18 /min Dr. Ganesh Garcia Work Phone: 2(288)365-832437 [place] [address] 01-07-2023 15:17-0400 SaO2% (BldA) [Mass fraction] 99 % Dr. Ganesh Garcia Work Phone: 4(737)959-166937 [place] [address] 01-07-2023 15:17-0400 Systolic blood pressure 143 mm[Hg] Dr. Ganesh Garcia Work Phone: 4(429)218-757537 [place] [address] 01-06-2023 20:30-0400 Diastolic blood pressure 59 mm[Hg] Dr. Ganesh Garcia Work Phone: 7(409)895-557737 [place] [address] 01-06-2023 20:30-0400 Heart rate 84 /min Dr. Ganesh Garcia Work Phone: 0(651)480-495637 [place] [address] 01-06-2023 20:30-0400 Respiratory rate 19 /min Dr. Ganesh Garcia Work Phone: 9(781)957-483737 [place] [address] 01-06-2023 20:30-0400 SaO2% (BldA) [Mass fraction] 94 % Dr. Ganesh Garcia Work Phone: 0(293)686-142537 [place] [address] 01-06-2023 20:30-0400 Systolic blood pressure 145 mm[Hg] Dr. Ganesh Garcia Work Phone: 3(490)566-513937 [place] [address] 01-06-2023 17:40-0400 Body mass index (BMI) [Ratio] 36 kg/m2 Dr. Ganesh Garcia Work Phone: 3(570)585-721537 [place] [address] 01-06-2023 17:40-0400 Body weight 83.[address] Ganesh Garcia Work Phone: 7(520)201-452637 [place] [address] 01-06-2023 17:27-0400 Body temperature 98 [degF] Dr. Ganesh Garcia Work Phone: 3(706)927-513537 [place] [address] 01-06-2023 17:24-0400 Body height 152.[address] Ganesh Garcia Work Phone: 0(191)711-851937 [place] [address] 11-05-2022 05:00-0500 Diastolic blood pressure 75 mm[Hg] Dr. Ganesh Garcia Work Phone: 6(989)546-478837 [place] [address] 11-05-2022 05:00-0500 Heart rate 89 /min Dr. Ganesh Garcia Work Phone: 4(953)798-983937 [place] [address] 11-05-2022 05:00-0500 Respiratory rate 19 /min Dr. Ganesh Garcia Work Phone: 9(982)036-680037 [place] [address] 11-05-2022 05:00-0500 SaO2% (BldA) [Mass fraction] 95 % Dr. Ganesh Garcia Work Phone: 3(212)315-137137 [place] [address] 11-05-2022 05:00-0500 Systolic blood pressure 138 mm[Hg] Dr. Ganesh Garcia Work Phone: 0(916)225-114537 [place] [address] 11-05-2022 01:44-0500 Body height 152.[address] Ganesh Garcia Work Phone: 8(298)123-509937 [place] [address] 11-05-2022 01:44-0500 Body mass index (BMI) [Ratio] 33.7 kg/m2 Dr. Ganesh Garcia Work Phone: 6(529)378-881837 [place] [address] 11-05-2022 01:44-0500 Body temperature 96.7 [degF] Dr. Ganesh Garcia Work Phone: 9(329)261-839937 [place] [address] 11-05-2022 01:44-0500 Body weight 78.[address] Ganesh Garcia Work Phone: 0(754)879-120237 [place] [address] 10-09-2022 04:11-0500 Diastolic blood pressure 67 mm[Hg] Dr. Ganesh Garcia Work Phone: 5(929)995-953837 [place] [address] 10-09-2022 04:11-0500 Heart rate 68 /min Dr. Ganesh Garcia Work Phone: 4(470)884-302637 [place] [address] 10-09-2022 04:11-0500 Respiratory rate 18 /min Dr. Ganesh Garcia Work Phone: 7(602)456-035837 [place] [address] 10-09-2022 04:11-0500 SaO2% (BldA) [Mass fraction] 97 % Dr. Ganesh Garcia Work Phone: 2(866)507-180537 [place] [address] 10-09-2022 04:11-0500 Systolic blood pressure 100 mm[Hg] Dr. Ganesh Garcia Work Phone: 9(075)962-669737 [place] [address] 10-09-2022 01:29-0500 Body height 152.[address] Ganesh Garcia Work Phone: 7(568)025-456637 [place] [address] Work Phone: 10-09-2022 01:29-0500 Body mass index (BMI) [Ratio] 34.3 kg/m2 Dr. Ganesh Garcia Work Phone: 1(937)028-275937 [place] [address] 10-09-2022 01:29-0500 Body temperature 98.6 [degF] Dr. Ganesh Garcia Work Phone: 0(417)180-616737 [place] [address] 10-09-2022 01:29-0500 Body weight 79.[address] Ganesh Garcia Work Phone: 1(940)853-777402 [address] 09-09-2022 13:37-0500 Body height 152.[address] Ganesh Garcia Work Phone: 9(711)280-255837 [place] [address] Work Phone: 09-09-2022 13:37-0500 Diastolic blood pressure 71 mm[Hg] Dr. Ganesh Garcia Work Phone: 8(830)751-755702 [address] 09-09-2022 13:37-0500 Heart rate 88 /min Dr. Ganesh Garcia Work Phone: 8(753)400-364137 [place] [address] 09-09-2022 13:37-0500 Respiratory rate 16 /min Dr. Ganesh Garcia Work Phone: 5(359)911-946537 [place] [address] 09-09-2022 13:37-0500 Systolic blood pressure 101 mm[Hg] Dr. Ganesh Garcia Work Phone: 2(086)926-900637 [place] [address] 08-24-2022 07:19-0400 Diastolic blood pressure 49 mm[Hg] Dr. Ganesh Garcia Work Phone: 3(589)367-941637 [place] [address] 08-24-2022 07:19-0400 Heart rate 65 /min Dr. Ganesh Garcia Work Phone: 5(473)367-126137 [place] [address] 08-24-2022 07:19-0400 Respiratory rate 18 /min Dr. aGnesh Garcia Work Phone: 5(428)518-568937 [place] [address] 08-24-2022 07:19-0400 SaO2% (BldA) [Mass fraction] 93 % Dr. Ganesh Garcia Work Phone: 0(057)141-582737 [place] [address] 08-24-2022 07:19-0400 Systolic blood pressure 107 mm[Hg] Dr. Ganesh Garcia Work Phone: 0(992)611-320037 [place] [address] 08-24-2022 05:17-0400 Inhaled oxygen flow rate 1 L/min Dr. Ganesh Garcia Work Phone: 9(089)523-016837 [place] [address] 08-24-2022 03:19-0400 Body height 152.[address] Ganesh Garcia Work Phone: 6(470)373-704902 [address] Work Phone: 08-24-2022 03:19-0400 Body mass index (BMI) [Ratio] 33.4 kg/m2 Dr. Ganesh Garcia Work Phone: 0(142)577-314802 [address] 08-24-2022 03:19-0400 Body temperature 97.3 [degF] Dr. Ganesh Garcia Work Phone: 1(368)398-403502 [address] 08-24-2022 03:19-0400 Body weight 77.[address] Ganesh Garcia Work Phone: 8(403)497-402037 [place] [address] 06-12-2022 14:13-0400 Body height 152.[address] Jarred oLpez Work Phone: [facility] Work Phone: 06-12-2022 14:12-0400 Body mass index (BMI) [Ratio] 34.7 kg/m2 Dr. Jarred Lopez Work Phone: [facility] Work Phone: 06-12-2022 14:12-0400 Body weight 80.[address] Jarred Lopez Work Phone: [facility] Work Phone: 06-12-2022 14:12-0400 Diastolic blood pressure 58 mm[Hg] Dr. Jarred Lopez Work Phone: [facility] Work Phone: 06-12-2022 14:12-0400 Heart rate 68 /min Dr. Jarred Lopez Work Phone: [facility] Work Phone: 06-12-2022 14:12-0400 Respiratory rate 16 /min Dr. Jarred Lopez Work Phone: [facility] Work Phone: 06-12-2022 14:12-0400 Systolic blood pressure 106 mm[Hg] Dr. Jarred Lopez Work Phone: [facility] Work Phone: 05-21-2022 15:00-0400 Heart rate 73 /min Dr. Jarred Lopez Work Phone: [facility] Work Phone: 05-21-2022 14:55-0400 Diastolic blood pressure 71 mm[Hg] Dr. Jarred Lopez Work Phone: [facility] Work Phone: 05-21-2022 14:55-0400 Heart rate 74 /min Dr. Jarred Lopez Work Phone: [facility] Work Phone: 05-21-2022 14:55-0400 Respiratory rate 16 /min Dr. Jarred Lopez Work Phone: [facility] Work Phone: 05-21-2022 14:55-0400 SaO2% (BldA) [Mass fraction] 94 % Dr. Jarred Lopez Work Phone: [facility] Work Phone: 05-21-2022 14:55-0400 Systolic blood pressure 112 mm[Hg] Dr. Jarred Lopez Work Phone: [facility] Work Phone: 05-21-2022 14:44-0400 Inhaled oxygen flow rate 2 L/min Dr. Jarred Lopez Work Phone: [facility] Work Phone: 05-21-2022 11:46-0400 Body temperature 98.2 [degF] Dr. Jarred Lopez Work Phone: [facility] Work Phone: 05-21-2022 06:40-0400 Body height 152.[address] Jarred Lopez Work Phone: [facility] Work Phone: 05-21-2022 06:40-0400 Body mass index (BMI) [Ratio] 36.3 kg/m2 Dr. Jarred Lopez Work Phone: [facility] Work Phone: 05-21-2022 06:40-0400 Body weight 84.[address] Jarred Lopez Work Phone: [facility] Work Phone: 05-21-2022 03:08-0400 Body temperature 97.9 [degF] Dr. Jarred Lopez Work Phone: [facility] Work Phone: 05-21-2022 03:08-0400 Diastolic blood pressure 72 mm[Hg] Dr. Jarred Lopez Work Phone: [facility] Work Phone: 05-21-2022 03:08-0400 Heart rate 77 /min Dr. Jarred Lopez Work Phone: [facility] Work Phone: 05-21-2022 03:08-0400 Inhaled oxygen flow rate 2 L/min Dr. Jarred Lopez Work Phone: [facility] Work Phone: 05-21-2022 03:08-0400 Respiratory rate 19 /min Dr. Jarred Lopez Work Phone: [facility] Work Phone: 05-21-2022 03:08-0400 SaO2% (BldA) [Mass fraction] 96 % Dr. Jarred Lopez Work Phone: [facility] Work Phone: 05-21-2022 03:08-0400 Systolic blood pressure 116 mm[Hg] Dr. Jarred Lopez Work Phone: [facility] Work Phone: 05-20-2022 22:05-0400 Body height 152.[address] Jarred Lopez Work Phone: [facility] Work Phone: 05-20-2022 22:05-0400 Body mass index (BMI) [Ratio] 38.9 kg/m2 Dr. Jarred Lopez Work Phone: [facility] Work Phone: 05-20-2022 22:05-0400 Body weight 90.[address] Jarred Lopez Work Phone: [facility] Work Phone: 05-04-2022 00:00-0400 Diastolic blood pressure 61 mm[Hg] Dr. Jarred Lopez Work Phone: [facility] Work Phone: 05-04-2022 00:00-0400 Heart rate 79 /min Dr. Jarred Lopez Work Phone: [facility] Work Phone: 05-04-2022 00:00-0400 Respiratory rate 17 /min Dr. Jarred Lopez Work Phone: [facility] Work Phone: 05-04-2022 00:00-0400 SaO2% (BldA) [Mass fraction] 96 % Dr. Jarred Lopez Work Phone: [facility] Work Phone: 05-04-2022 00:00-0400 Systolic blood pressure 114 mm[Hg] Dr. Jarred Lopez Work Phone: [facility] Work Phone: 05-03-2022 19:54-0400 Body height 152.[address] Jarred Lopez Work Phone: [facility] Work Phone: 05-03-2022 19:54-0400 Body mass index (BMI) [Ratio] 37.8 kg/m2 Dr. Jarred Lopez Work Phone: [facility] Work Phone: 05-03-2022 19:54-0400 Body temperature 97.8 [degF] Dr. Jarred Lopez Work Phone: [facility] Work Phone: 05-03-2022 19:54-0400 Body weight [address] Jarred Lopez Work Phone: [facility] Work Phone: 04-25-2022 15:04-0400 Heart rate 72 /min Dr. Jarred Lopez Work Phone: [facility] Work Phone: 04-25-2022 11:53-0400 Body temperature 97.8 [degF] Dr. Jarred Lopez Work Phone: [facility] Work Phone: 04-25-2022 11:53-0400 Diastolic blood pressure 65 mm[Hg] Dr. Jarred Lopez Work Phone: [facility] Work Phone: 04-25-2022 11:53-0400 Respiratory rate 16 /min Dr. Jarred Lopez Work Phone: [facility] Work Phone: 04-25-2022 11:53-0400 SaO2% (BldA) [Mass fraction] 94 % Dr. Jarred Lopez Work Phone: [facility] Work Phone: 04-25-2022 11:53-0400 Systolic blood pressure 105 mm[Hg] Dr. Jarred Lopez Work Phone: [facility] Work Phone: 04-25-2022 09:47-0400 Inhaled oxygen flow rate 2 L/min Dr. Jarred Lopez Work Phone: [facility] Work Phone: 04-24-2022 17:41-0400 Body height 152.[address] Jarred Lopez Work Phone: [facility] Work Phone: 04-24-2022 17:41-0400 Body mass index (BMI) [Ratio] 35.4 kg/m2 Dr. Jarred Lopez Work Phone: [facility] Work Phone: 04-24-2022 17:41-0400 Body weight 82.[address] Jarred Lopez Work Phone: [facility] Work Phone: 03-30-2022 15:00-0400 Body temperature 97.2 [degF] Dr. Jarred Lopez Work Phone: [facility] Work Phone: 03-30-2022 15:00-0400 Diastolic blood pressure 86 mm[Hg] Dr. Jarred Lopez Work Phone: [facility] Work Phone: 03-30-2022 15:00-0400 Heart rate 81 /min Dr. Jarred Lopez Work Phone: [facility] Work Phone: 03-30-2022 15:00-0400 Respiratory rate 16 /min Dr. Jarred Lopez Work Phone: [facility] Work Phone: 03-30-2022 15:00-0400 SaO2% (BldA) [Mass fraction] 96 % Dr. Jarred Lopez Work Phone: [facility] Work Phone: 03-30-2022 15:00-0400 Systolic blood pressure 114 mm[Hg] Dr. Jarred Lopez Work Phone: [facility] Work Phone: 03-28-2022 13:35-0400 Inhaled oxygen flow rate 2 L/min Dr. Jarred Lopez Work Phone: [facility] Work Phone: 03-20-2022 18:30-0400 Body temperature 97.1 [degF] Dr. Jarred Lopez Work Phone: [facility] Work Phone: 03-20-2022 18:30-0400 Diastolic blood pressure 89 mm[Hg] Dr. Jarred Lopez Work Phone: [facility] Work Phone: 03-20-2022 18:30-0400 Heart rate 80 /min Dr. Jarred Lopez Work Phone: [facility] Work Phone: 03-20-2022 18:30-0400 Respiratory rate 16 /min Dr. Jarred Lopez Work Phone: [facility] Work Phone: 03-20-2022 18:30-0400 SaO2% (BldA) [Mass fraction] 100 % Dr. Jarred Lopez Work Phone: [facility] Work Phone: 03-20-2022 18:30-0400 Systolic blood pressure 137 mm[Hg] Dr. Jarred Lopez Work Phone: [facility] Work Phone: 03-20-2022 18:20-0400 Body height 152.[address] Jarred Lopez Work Phone: [facility] Work Phone: 03-20-2022 18:20-0400 Body mass index (BMI) [Ratio] 32.3 kg/m2 Dr. Jarred Lopez Work Phone: [facility] Work Phone: 03-20-2022 18:20-0400 Body weight [address] Jarred Lopez Work Phone: [facility] Work Phone: 02-24-2022 16:22-0400 Heart rate 84 /min [facility] Work Phone: 02-24-2022 16:22-0400 Respiratory rate 16 /min [facility] Work Phone: 02-24-2022 16:22-0400 SaO2% (BldA) [Mass fraction] 97 % [facility] Work Phone: 02-24-2022 15:40-0400 Diastolic blood pressure 60 mm[Hg] [facility] Work Phone: 02-24-2022 15:40-0400 Systolic blood pressure 108 mm[Hg] [facility] Work Phone: 02-24-2022 13:02-0400 Body height 152.4 cm [facility] Work Phone: 02-24-2022 13:02-0400 Body mass index (BMI) [Ratio] 29.7 kg/m2 [facility] Work Phone: 02-24-2022 13:02-0400 Body temperature 97.6 [degF] [facility] Work Phone: 02-24-2022 13:02-0400 Body weight 68.94 kg [facility] Work Phone: 01-13-2022 19:41-0400 Diastolic blood pressure 70 mm[Hg] [facility] Work Phone: 01-13-2022 19:41-0400 Heart rate 74 /min [facility] Work Phone: 01-13-2022 19:41-0400 Respiratory rate 17 /min [facility] Work Phone: 01-13-2022 19:41-0400 SaO2% (BldA) [Mass fraction] 97 % [facility] Work Phone: 01-13-2022 19:41-0400 Systolic blood pressure 95 mm[Hg] [facility] Work Phone: 01-13-2022 14:20-0400 Body height 152.4 cm [facility] Work Phone: 01-13-2022 14:20-0400 Body mass index (BMI) [Ratio] 29.7 kg/m2 [facility] Work Phone: 01-13-2022 14:20-0400 Body temperature 97.3 [degF] [facility] Work Phone: 01-13-2022 14:20-0400 Body weight 68.94 kg [facility] Work Phone: 09-27-2021 14:38-0500 Body mass index (BMI) [Ratio] 28.7 kg/m2 [facility] Work Phone: 09-27-2021 14:38-0500 Body temperature 96.6 [degF] [facility] Work Phone: 09-27-2021 14:38-0500 Body weight 66.67 kg [facility] Work Phone: 09-27-2021 14:38-0500 Diastolic blood pressure 80 mm[Hg] [facility] Work Phone: 09-27-2021 14:38-0500 Heart rate 100 /min [facility] Work Phone: 09-27-2021 14:38-0500 Respiratory rate 16 /min [facility] Work Phone: 09-27-2021 14:38-0500 SaO2% (BldA) [Mass fraction] 100 % [facility] Work Phone: 09-27-2021 14:38-0500 Systolic blood pressure 154 mm[Hg] [facility] Work Phone: 07-28-2017 17:13-0400 BMI (Body Mass [...] [facility] Work Phone: 07-28-2017 17:130400 Respiratory Rate 15 /min Angelika De La Torre [facility] Work Phone: 07-28-2017 17:130400 Weight 75.21 kg Angelika De La Torre [facility] Work Phone: 02-04-2012 [id number] BSA (Body Surface Area) 1.75 m2 Angelika De La Torre [facility] Work Phone: Encounters Encounter Date Encounter Type Care Provider Facility Start: 09-03-2025 ambulatory Ana Maria NOLASCO Fac ility:[facility] Start: 08-15-2025 End: 08-15-2025 [facility] Start: 07-31-2025 End: 07-31-2025 [facility] Start: 07-30-2025 ambulatory Efmarcelle Linares Facili ty:[facility] Start: 07-30-2025 Dr. Júnior Lombardo MD -[facility] Start: 07-26-2025 ambulatory Ana Maria NOLASCO Fac ility:[facility] Start: 07-26-2025 End: 07-26-2025 Shonda REYNOLDS -[facility] Work Phone: Start: 07-26-2025 End: 07-26-2025 ambulatory Shonda REYNOLDS Facility:[facility] Start: 07-17-2025 End: 07-17-2025 Dr. Rosa Maria Hagan MD -[facility] Work Phone: Start: 07-17-2025 End: 07-17-[address] Lizet Linares MD Work Phone: -[facility] Start: 07-06-2025 End: 07-06-[address] Lizet Linares MD Work Phone: -[facility] Start: 07-06-2025 End: 07-06-[address] Lizet Linares MD Work Phone: [facility] Start: 07-06-2025 End: 07-06-2025 Lizet Linares MD [facility] Start: 07-06-2025 End: 07-06-2025 ambulatory Ayman Basali Facility:[facility] Start: 06-28-2025 ambulatory Efmarcelle Linares Facili ty:[facility] Start: 06-28-2025 Lizet Linares MD [facility] Start: 06-15-2025 End: 06-15-2025 Dr. Juan Whatley MD -[facility] Work Phone: Start: 06-15-2025 End: 06-15-[address] Lizet Linares MD Work Phone: [facility] Start: 06-11-2025 ambulatory Lizet Linares OLS Fa cility:[facility]: [facility]11[facility] Start: 06-07-2025 End: 06-07-2025 Dr. Juan Whatley MD -[facility] Work Phone: Start: 06-07-2025 End: 06-07-[address] Lizet Linares MD Work Phone: -[facility] Start: 06-05-2025 End: 06-05-[address] Lizet Linares MD Work Phone: [facility] Start: 06-05-2025 End: 06-05-2025 Dr. Lizet Linares MD -[facility] Work Phone: Start: 06-04-2025 ambulatory Efmarcelle Linares Facili ty:[facility] Start: 06-04-2025 [facility]: [facility]04[facility] Start: 06-01-2025 Non-patient / Non-visit Dr. Juan lan MD [facility] Start: 06-01-2025 Dr. Juan Whatley MD [facility] Start: 05-31-2025 Non-patient / Non-visit Dr. Juan lan MD [facility] Start: 05-31-2025 Dr. Juan Whatley MD [facility] Start: 05-31-2025 Non-patient / Non-visit Dr. John hawk MD [facility] Work Phone: Start: 05-31-2025 Dr. John Shaw MD [facility] Work Phone: Start: 05-30-2025 Non-patient / Non-visit Dr. Juan lan MD [facility] Start: 05-30-2025 Dr. Juan Whatley MD [facility] Start: 05-30-2025 Non-patient / Non-visit Dr. John hawk MD [facility] Work Phone: Start: 05-30-2025 Dr. John Shaw MD [facility] Work Phone: Start: 05-29-2025 Non-patient / Non-visit Dr. John hawk MD [facility] Work Phone: Start: 05-29-2025 Dr. John Shaw MD [facility] Work Phone: Start: 05-28-2025 End: 05-28-[address] Lizet Linares MD Work Phone: -[facility] Start: 05-28-2025 End: 05-28-2025 Ana Maria Geller NP-C -[facility] Work Phone: Start: 05-28-2025 ambulatory Chavez Alcala Fac ility:[facility] Start: 05-28-2025 End: 06-01-2025 Evaluation and management [...] ambulatory Dr. Lizet Linares MD Work Phone: [facility] Start: 05-25-2025 End: 05-25-2025 Ana Mariatom Geller [facility] Work Phone: Start: 05-07-2025 End: 05-07-2025 Patient encounter procedure Ana Maria Geller [facility] Work Phone: Start: 05-07-2025 End: 05-07-[address] Lizet Linares MD Work Phone: [facility] Start: 05-07-2025 Registered Referred Lizet Linares MD [facility] Start: 05-07-2025 End: 05-07-2025 Lizet Linares MD [facility] Start: 05-04-2025 End: 05-04-[address] Lizet Linares MD Work Phone: [facility] Start: 05-04-2025 End: 05-04-2025 Patient encounter procedure Ana Maria Geller [facility] Work Phone: Start: 05-04-2025 End: 05-04-2025 Ana Mariatom Geller [facility] Work Phone: Start: 05-03-2025 ambulatory Lizet Richardson ty:[facility] Start: 05-01-2025 End: 05-01-[address] Lizet Linares MD Work Phone: [facility] Start: 05-01-2025 End: 05-01-2025 Patient encounter procedure Ana Maria Geller [facility] Work Phone: Start: 05-01-2025 End: 05-01-2025 Ana Maria Geller [facility] Work Phone: Start: 04-25-2025 End: 04-25-[address] Lizet Linares MD Work Phone: [facility] Start: 04-25-2025 Registered Referred Lizet Linares MD -[facility] Start: 04-25-2025 End: 04-25-2025 Lizet Linares MD [facility] Start: 04-25-2025 End: 04-25-2025 ambulatory Lizet NOLASCO Facility:[facility] Start: 04-20-2025 End: 04-20-[address] Lizet Linares MD Work Phone: [facility] Start: 04-20-2025 End: 04-20-2025 Patient encounter procedure Ana Maria Geller [facility] Work Phone: Start: 04-20-2025 End: 04-20-2025 Ana Maria Geller [facility] Work Phone: Start: 04-12-2025 ambulatory Lizet NOLASCO Fa cility:[facility] Start: 04-12-2025 Registered Referred Lizet Linares MD [facility] Start: 04-12-2025 Lizet Linares MD [facility] Start: 04-12-2025 End: 04-12-[address] Lizet Linares MD Work Phone: [facility] Start: 04-12-2025 End: 04-12-2025 Patient encounter procedure Claude REYNOLDS [facility] Work Phone: Start: 04-12-2025 End: 04-12-2025 Claude REYNOLDS [facility] Work Phone: Start: 04-06-2025 End: 04-06-[address] Lizet Linares MD Work Phone: [facility] Start: 04-06-2025 Registered Referred Lizet Linares MD [facility] Start: 04-06-2025 End: 04-06-2025 Lizet Linares MD [facility] Start: 04-06-2025 End: 04-06-2025 ambulatory Lizet NOLASCO Facility:[facility] Start: 03-29-2025 ambulatory [facility] Facility:[facility] Start: 03-29-2025 Registered Referred Lizet Linares MD [facility] Start: 03-29-2025 Lizet Linares MD [facility] Start: 03-27-2025 End: 03-27-[address] Lizet Linares MD Work Phone: [facility] Start: 03-27-2025 End: 03-27-[address] Lizet Linares MD -[facility] Work Phone: Start: 03-27-2025 End: 03-27-2025 Dr. Lizet Linares MD -[facility] Work Phone: Start: 03-21-2025 End: 04-12-2025 ambulatory Dwayne Lopez MD Work Phone: [address] [place] [address] Comment on above: Diabetes Start: 03-20-2025 End: 03-20-2025 ambulatory Dwayne Lopez MD Work Phone: [facility] Start: 03-20-2025 End: 03-20-2025 Patient encounter procedure Dwayne Lopez MD Work Phone: [facility] Comment on above: Population Health Na [facility] Start: 03-13-2025 End: 03-13-[address] Lizet Linares MD Work Phone: [facility] Start: 03-13-2025 End: 03-13-2025 Patient encounter procedure Ana Maria Geller [employer]-C -[facility] Work Phone: Start: 03-13-2025 End: 03-13-2025 Ana Maria Geller [employer]-C -[facility] Work Phone: Start: 03-12-2025 End: 03-12-[address] Lizet Linares MD Work Phone: [facility] Work Phone: Start: 03-12-2025 End: 03-12-2025 Departed Referred Lizet Linares MD -[facility] Start: 03-12-2025 End: 03-12-2025 Lizet Linares MD -[facility] Start: 03-12-2025 End: 03-12-2025 ambulatory Lizet NOLASCO Facility:[facility] Start: 03-08-2025 End: 03-08-[address] Lizet Linares MD Work Phone: [facility] Start: 03-08-2025 End: 03-08-2025 Patient encounter procedure Ana Maria Geller [employer] -[facility] Work Phone: Start: 03-08-2025 End: 03-08-2025 Ana Maria Geller [employer] -[facility] Work Phone: Start: 03-05-2025 End: 03-05-2025 Patient encounter procedure Ana Maria Geller [employer] -[facility] Work Phone: Start: 03-05-2025 End: 03-05-[address] Lizet Linares MD Work Phone: [facility] Start: 03-05-2025 Registered Referred Ana Maria MOODY [facility] Start: 03-05-2025 End: 03-05-2025 Ana Maria Geller NP-Zeus -[facility] Work Phone: Start: 02-26-2025 End: 02-26-[address] Lizet Linares MD Work Phone: [facility] Start: 02-26-2025 End: 02-26-2025 Patient encounter procedure Ana Maria MOODY -[facility] Work Phone: Start: 02-26-2025 End: 02-26-2025 Ana Maria MOODY -[facility] Work Phone: Start: 02-12-2025 End: 02-12-2025 ambulatory Elizabeth Jennings [facility] Work Phone: [facility] Start: 02-12-2025 End: 02-12-2025 Patient encounter procedure Elizabeth Jennings [facility] Work Phone: [facility] Start: 02-06-2025 End: 03-09-2025 ambulatory Dwayne Lopez MD Work Phone: [facility] Start: 01-30-2025 End: 01-30-2025 Patient encounter procedure Shonda REYNOLDS -[facility] Work Phone: Start: 01-30-2025 End: 01-30-2025 ambulatory Efshanicebe Milagros Facility:[facility] Start: 01-23-2025 End: 01-23-2025 ambulatory Efmarcelle Linares Facility:[facility] Start: 01-23-2025 End: 01-23-[address] Lizet Linares MD -[facility] Work Phone: Start: 01-22-2025 End: 01-22-2025 ambulatory Lizet Linares Facility:[facility] Start: 01-22-2025 End: 01-22-2025 Patient encounter procedure Ana Maria Geller [employer]-[facility] Work Phone: Start: 01-22-2025 End: 01-22-2025 Ana Maria Geller [employer]-C -[facility] Work Phone: Start: 01-22-2025 End: 01-22-2025 Dr. Lizet Linares MD Work Phone: -Emergency Department Work Phone: Start: 01-22-2025 End: 01-22-2025 Emergency department patient visit Dr. Lizet Linares MD Work Phone: [facility] Work Phone: Start: 01-05-2025 End: 01-05-2025 ambulatory Dwayne Lopez MD Work Phone: [facility] Comment on above: Allied Health Visit (Medication Adherence Outreach/) Start: 01-05-2025 End: 01-05-2025 Departed Referred Lizet Linares MD [facility] Start: 01-05-2025 End: 01-05-2025 Lizet Linares MD [facility] Start: 01-04-2025 End: 01-05-2025 ambulatory Lizet NOLASCO Facility:[facility] Start: 01-04-2025 End: 01-04-2025 Patient encounter procedure Claude REYNOLDS [facility] Work Phone: Start: 01-04-2025 End: 01-04-2025 Claude REYNOLDS [facility] Work Phone: Start: 12-07-2024 ambulatory Lizet Linares OLS Fa cility:[facility] Start: 12-07-2024 [facility] Start: 12-07-2024 Lizet Linares MD [facility] Start: 11-30-2024 ambulatory Efmarcelle NOLASCO Fa cility:[facility] Start: 11-30-2024 [facility]: [facility] Start: 11-29-2024 End: 11-29-2024 ambulatory Ashish Bray SARITA [facility] Start: 11-29-2024 End: 11-29-2024 Patient encounter procedure Ashish Lingnahed STEIN [facility] Comment on above: Population Health Na vigation Outreach ([facility]) Start: 11-28-2024 End: 11-28-2024 ambulatory Lizet Linares Facility:[facility] Start: 11-28-2024 End: 11-28-[address] Lizet Linares MD -[facility] Work Phone: Start: 11-28-2024 End: 11-28-2024 Dr. Lizet Linares MD -[facility] Work Phone: Start: 11-24-2024 ambulatory Lizet Linares OLS Fa cility:[facility] Start: 11-24-2024 [facility] Start: 11-17-2024 End: 11-17-2024 [facility] Start: 11-17-2024 End: 11-17-2024 ambulatory Lizet NOLASCO Facility:[facility] Start: 11-10-2024 End: 11-10-2024 Lizet Linares MD [facility] Start: 11-10-2024 End: 11-10-2024 ambulatory Efmarcelle Linares Facility:[facility] Start: 11-03-2024 ambulatory Efewongbe Germane OLS Fa cility:[facility] Start: 11-03-2024 [facility] Start: 11-01-2024 End: 11-01-2024 [facility] Start: 11-01-2024 End: 11-01-2024 ambulatory Efewongbe Oleghe Facility:[facility] Start: 10-27-2024 End: 10-27-2024 ambulatory Ana Maria Geller [employer] Facility:[facility] Start: 10-27-2024 End: 10-27-2024 Ana Maria Geller [employer]- -[facility] Work Phone: Start: 10-24-2024 End: 10-24-2024 Dr. Salvador Cambpell DO -Emergency Departca nt Work Phone: Start: 10-24-2024 End: 10-24-2024 Emergency department patient visit Efchristaongbe Germane Facility:[facility] Start: 10-20-2024 ambulatory Efewongbe Oleghe Facili ty:[facility] Start: 10-20-2024 Lizet Linares MD [facility] Start: 10-13-2024 ambulatory Efewongbe Oleghe Facili ty:[facility] Start: 10-13-2024 Lizet Linares MD [facility] Start: 10-06-2024 ambulatory Efewongbe Oleghe Facili ty:[facility] Start: 10-06-2024 End: 10-06-2024 Lizet Linares MD [facility] Start: 10-06-2024 End: 10-06-2024 ambulatory Efewongbe Oleghe Facility:[facility] Start: 09-29-2024 End: 09-29-2024 Lizet Linares MD [facility] Start: 09-29-2024 End: 09-29-2024 ambulatory Efewongbe Oleghe Facility:[facility] Start: 09-26-2024 End: 09-27-2024 ambulatory Efewongbe Oleghe Facility:[facility] Start: 09-26-2024 End: 09-27-2024 Dr. Lizet Linares MD -[facility] Work Phone: Start: 09-22-2024 End: 09-22-2024 ambulatory Efewongbe Oleghe Facility:[facility] Start: 09-20-2024 End: 09-20-2024 ambulatory [facility] Facility:[facility] Start: 09-15-2024 End: 09-15-2024 ambulatory [facility] Facility:[facility] Start: 09-13-2024 End: 09-13-2024 ambulatory [facility] Facility:[facility] Start: 09-08-2024 End: 09-08-2024 ambulatory Irena Wild [facility] Start: 09-08-2024 End: 09-08-2024 Patient encounter procedure Irena Wild [facility] Comment on above: Population Health Na vigation Outreach (Vinh No PCP ) Start: 09-08-2024 End: 09-08-2024 ambulatory [facility] Facility:[facility] Start: 04-06-2024 ambulatory Mel Peacock RN Work Phone: [employer] Comment on above: ACM TIARA RN Start: 03-28-2024 ambulatory Mel Peacock RN Work Phone: [employer] Start: 03-21-2024 Refill Dwayne Lopez MD Work Phone: [facility] [employer] Comment on above: Refill Request Start: 03-08-2024 ambulatory Dwayne Lopez MD Work Phone: [facility] [place] Start: 02-25-2024 Dr. Jarred Lopez Work Phone: [facility] Start: 02-18-2024 End: 02-18-[address] Jarred Lopez Work Phone: [facility] Work Phone: Start: 02-18-2024 End: 02-18-2024 Dr. Jarred Lopez Work Phone: [facility] Start: 02-17-2024 ambulatory Annabel Martin [facility] [place] Start: 02-17-2024 Patient encounter procedure Annabel Agrawal MA [facility] Comment on above: Population Health Na vigation Outreach ([facility] SARITA 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 - AWV, Care gaps, HCC gap closure - [facility]) Start: 02-11-2024 End: 02-11-[address] Jarred Lopez Work Phone: [facility] Work Phone: Start: 02-11-2024 End: 02-11-2024 Dr. Jarred Lopez Work Phone: [facility] Start: 02-10-2024 ambulatory Dwayne Lopez MD Work Phone: [facility] Comment on above: Allied Health Visit (Medication Adherence Outreach ) Start: 02-09-2024 Dr. Jarred Lopez Work Phone: [facility] Start: 02-04-2024 End: 02-04-[address] Jarred Lopez Work Phone: [facility] Work Phone: Start: 02-04-2024 End: 02-04-2024 Dr. Jarred Lopez Work Phone: [facility] Start: 02-02-2024 End: 02-02-[address] Jarred Lopez Work Phone: [facility] Work Phone: Start: 02-02-2024 End: 02-02-2024 Dr. Jarred Lopez Work Phone: [facility] Start: 02-01-2024 End: 02-01-2024 Dr. Jarred Lopez Work Phone: [facility] Work Phone: Start: 01-28-2024 Dr. Jarred Lopez Work Phone: [facility] Start: 01-24-2024 Telephone encounter Jarred Lopez MD Work Phone: [facility] Comment on above: Appointment Start: 01-21-2024 Dr. Jarred Lopez Work Phone: [facility] Start: 01-20-2024 End: 01-20-2024 Emergency department patient visit Dr. Jarred Lopez Work Phone: [facility] Work Phone: Start: 01-20-2024 End: 01-20-2024 Dr. Jarred Lopez Work Phone: [facility]-Emergency Department Work Phone: Start: 01-19-2024 Dr. Jarred Lopez Work Phone: [facility] Start: 01-17-2024 Dr. Jarred Lopez Work Phone: [facility] Start: 01-14-2024 Dr. Jarred Lopez Work Phone: [facility] Start: 01-12-2024 Dr. Jarred Lopez Work Phone: [facility] Start: 01-07-2024 Dr. Jarred Lopez Work Phone: [facility] Start: 01-06-2024 ambulatory Rachel Perea LPN [facility] Start: 01-06-2024 Telephone encounter Jarred Lopez MD Work Phone: [facility] Comment on above: Appointment (Hospita l follow up (40 min as patient hasn't followed up as advised either LEA March 2023)) Transition Of Care Start: 01-05-2024 Dr. Jarred Lopez Work Phone: [facility] Work Phone: Start: 01-04-2024 Dr. Jarred Lopez Work Phone: [facility] Work Phone: Start: 01-03-2024 Dr. Jarred Lopez Work Phone: [facility] Work Phone: Start: 01-03-2024 Non-patient / Non-visit Dr. Adriana Lopez Work Phone: [facility] Start: 01-03-2024 Dr. Jarred Lopez Work Phone: [facility] Start: 01-02-2024 Non-patient / Non-visit Dr. Adriana Lopez Work Phone: [facility] Work Phone: Start: 01-02-2024 Dr. Jarred Lopez Work Phone: [facility] Work Phone: Start: 01-01-2024 Evaluation and manag ement of inpatient Dr. Jarred Lopez Work Phone: [facility]Progressive [facility] Unit Work Phone: Start: 01-01-2024 End: 01-05-[address] Jarred Lopez Work Phone: [facility] Work Phone: Start: 01-01-2024 End: 01-05-2024 Dr. Jarred Lopez Work Phone: [facility] Work Phone: Start: 12-31-2023 End: 12-31-[address] Jarred Lopez Work Phone: [facility] Work Phone: Start: 12-31-[address] Luis Carlos Lopez Work Phone: [facility] Start: 12-31-2023 End: 12-31-2023 Dr. Jarred Lopez Work Phone: [facility] Start: 12-29-2023 End: 12-29-[address] Jarred Lopez Work Phone: [facility] Work Phone: Start: 12-29-[address] Luis Carlos Lopez Work Phone: [facility] Start: 12-29-2023 End: 12-29-2023 Dr. Jarred Lopez Work Phone: [facility] Start: 12-24-2023 End: 12-24-[address] Jarred Lopez Work Phone: [facility] Work Phone: Start: 12-24-[address] Luis Carlos Lopez Work Phone: [facility] Start: 12-24-2023 End: 12-24-2023 Dr. Jarred Lopez Work Phone: [facility] Start: 12-17-2023 End: 12-17-[address] Jarred Lopez Work Phone: [facility] Work Phone: Start: 12-17-2023 End: 12-17-[address] Jarred Lopez Work Phone: [facility] Start: 12-17-[address] Luis Carlos Lopez Work Phone: [facility] Start: 12-17-2023 End: 12-17-2023 Dr. Jarred Lopez Work Phone: [facility] Start: 12-10-[address] Luis Carlos Lopez Work Phone: [facility] Start: 12-10-2023 Dr. Jarred Lopez Work Phone: [facility] Start: 12-07-2023 End: 12-07-2023 Dr. Jarred Lopez Work Phone: [facility] Work Phone: Start: 11-26-[address] Luis Carlos Lopez Work Phone: [facility] Start: 11-26-2023 Dr. Jarred Lopez Work Phone: [facility] Start: 11-25-2023 End: 11-25-2023 Dr. Jarred Lopez Work Phone: [facility] Work Phone: Start: 11-24-2023 Non-patient / Non-visit Dr. Adriana Lopez Work Phone: [facility] Work Phone: Start: 11-24-2023 Dr. Jarred Lopez Work Phone: [facility] Work Phone: Start: 11-23-2023 Non-patient / Non-visit Dr. Adriana Lopez Work Phone: [facility] Work Phone: Start: 11-23-2023 Dr. Jarred Lopez Work Phone: [facility] Work Phone: Start: 11-22-2023 Non-patient / Non-visit Dr. Adriana Lopez Work Phone: [facility] Work Phone: Start: 11-22-2023 Dr. Jarred Lopez Work Phone: [facility] Work Phone: Start: 11-21-2023 Non-patient / Non-visit Dr. Adriana Lopez Work Phone: [facility] Work Phone: Start: 11-21-2023 Dr. Jarred Lopez Work Phone: [facility] Work Phone: Start: 11-20-2023 Non-patient / Non-visit Dr. Adriana Lopez Work Phone: [facility] Work Phone: Start: 11-20-2023 Dr. Jarred Lopez Work Phone: [facility] Work Phone: Start: 11-19-2023 Non-patient / Non-visit Dr. Adriana Lopez Work Phone: [facility] Work Phone: Start: 11-19-2023 End: 11-24-2023 Evaluation and management of inpatient Dr. Jarred Lopez Work Phone: [facility] Work Phone: Start: 11-19-[address] Lincoln Lopez Work Phone: [facility] Work Phone: Start: 11-19-2023 End: 11-24-2023 Dr. Jarred Lopez Work Phone: [facility] Work Phone: Start: 09-20-2023 ambulatory Dwayne Lopez MD Work Phone: [facility] Comment on above: Allied Health Visit (Medication Adherence Outreach ) Start: 08-20-2023 ambulatory Dwayne Lopez MD Work Phone: [facility] Comment on above: Allied Health Visit (Medication Adherence Outreach ) Start: 08-18-2023 ambulatory [facility] [place] Comment on above: Population Health Na vigation Outreach ([place] care gaps ) Refill Request Start: 06-10-2023 End: 06-10-2023 Emergency department patient visit Dr[facility] Ganesh Garcia [facility]: Start: 06-10-2023 ambulatory Dwayne Lopez MD Work Phone: [facility] Comment on above: Constipation Start: 06-07-2023 Telephone encounter Jarred Lopez MD Work Phone: [facility] Comment on above: Appointment (ER foll ow up visit) Start: 06-06-2023 End: 06-06-2023 Emergency department patient visit Dr. Ganesh Garcia Work Phone: [facility] Work Phone: Start: 06-04-2023 End: 06-04-2023 Emergency department patient visit Dr. Ganesh Garcia Work Phone: [facility] Work Phone: Start: 05-20-2023 ambulatory Dwayne Lopez MD Work Phone: [facility] Comment on above: Allied Health Visit (Medication Adherence Outreach/) Refill Request Start: 05-04-2023 ambulatory Dwayne Lopez MD Work Phone: [facility] Start: 04-23-2023 End: 04-23-2023 Patient encounter procedure Vernon Degroot APRN.CNP Work Phone: [facility] Comment on above: Toothache (Primary D x) Start: 04-08-2023 ambulatory Pcp (Historical) [facility] Start: 04-07-2023 Telephone encounter Jarred Lopez MD Work Phone: [facility] Comment on above: Appointment Start: 04-07-2023 End: 04-07-2023 Patient encounter procedure Dwayne Lopez MD Work Phone: [facility] Comment on above: Generalized weakness (Primary Dx); Acute constipation; Diabetes mellitus type 2 with neurological manifestations (HCC); Diabetic polyneuropathy associated with type 2 diabetes mellitus (HCC); Hyperlipidemia associated with type 2 diabetes mellitus (HCC); Change in vision; Globus sensation; Onychomycosis; Acquired hypothyroidism; Screening for colon cancer; Encounter for immunization; Stage 3a chronic kidney disease ([facility]); Hyperparathyroidism (HCC); Opioid dependence, continuous ([facility]) Start: 03-28-2023 End: 03-28-2023 Emergency department patient visit Dr. Lizet Linares Work Phone: [facility] Start: 03-24-2023 End: 03-24-2023 Patient encounter procedure Dwayne Lopez MD Work Phone: [facility] Comment on above: Globus sensation (Pr imary Dx); Gastroesophageal reflux disease, unspecified whether esophagitis present Start: 03-17-2023 End: 03-17-[address] Ganesh Garcia Work Phone: [facility] Work Phone: Start: 03-16-2023 End: 03-16-[address] Lizet Linares Work Phone: [facility] Work Phone: Start: 03-16-2023 End: 03-16-[address] Lizet Linares Work Phone: [facility] Start: 03-09-2023 End: 03-09-[address] Ganesh Garcia Work Phone: [facility] Work Phone: Start: 03-02-2023 End: 03-02-[address] Lizet Linares Work Phone: [facility] Start: 03-01-2023 End: 03-01-[address] Lizet Linares Work Phone: [facility] Start: 02-23-2023 ambulatory No Pcp [facility] Comment on above: Allied Health Visit (Medication Adherence Outreach ) Start: 02-16-2023 End: 02-16-[address] Lizet Linares Work Phone: [facility] Start: 02-11-2023 End: 02-11-[address] Lizet Linares Work Phone: [facility] Start: 02-02-2023 End: 02-02-[address] Lizet Linares Work Phone: [facility] Start: 02-02-2023 Dr. Lizet Linares Work Phone: [facility] Start: 01-30-2023 End: 01-30-[address] Lizet Linares Work Phone: [facility] Start: 01-29-2023 End: 01-30-2023 Emergency department patient visit Dr. Lizet Linares Work Phone: [facility] Start: 01-29-2023 End: 01-30-2023 Dr. Lizet Linares Work Phone: [facility] Start: 01-26-2023 End: 01-26-[address] Lizet Linares Work Phone: [facility] Work Phone: Start: 01-26-2023 End: 01-26-[address] Lizet Linares Work Phone: [facility] Start: 01-26-2023 End: 01-26-2023 Dr. Lizet Linares Work Phone: [facility] Start: 01-19-2023 End: 01-19-[address] Lizet Linares Work Phone: [facility] Work Phone: Start: 01-19-2023 End: 01-19-[address] Lizet Linares Work Phone: [facility] Start: 01-19-[address] Shadia Linares Work Phone: [facility] Start: 01-19-2023 End: 01-19-2023 Dr. Lizet Linares Work Phone: [facility] Start: 01-18-2023 End: 01-18-[address] Lizet Linares Work Phone: [facility] Work Phone: Start: 01-18-2023 End: 01-18-[address] Lizet Linares Work Phone: [facility] Start: 01-18-2023 End: 01-18-2023 Dr. Lizet Linares Work Phone: [facility] Start: 01-08-2023 End: 01-08-[address] Lizet Linares Work Phone: [facility] Start: 01-08-2023 End: 01-08-2023 Dr. Lizet Linares Work Phone: [facility] Start: 01-07-2023 End: 01-07-[address] Lizet Linares Work Phone: [facility] Start: 01-07-2023 End: 01-07-2023 Dr. Lizet Linares Work Phone: [facility] Start: 01-07-2023 End: 01-07-2023 Emergency department patient visit Dr. Ganesh Garcia Work Phone: [facility] Work Phone: Start: 01-07-2023 End: 01-07-2023 Dr. Ganesh Garcia Work Phone: [facility] Start: 01-06-2023 End: 01-06-2023 Emergency department patient visit Dr. Ganesh Garcia Work Phone: [facility] Work Phone: Start: 01-06-2023 End: 01-06-2023 Dr. Ganesh Garcia Work Phone: [facility] Start: 01-05-2023 End: 01-05-[address] Lizet Linares Work Phone: [facility] Start: 01-05-2023 End: 01-05-[address] Lizet Linares Work Phone: [facility] Work Phone: Start: 01-05-2023 End: 01-05-[address] Lizet Linares Work Phone: [facility] Start: 01-05-2023 End: 01-05-2023 Dr. Ganesh Garcia Work Phone: [facility] Start: 01-04-2023 End: 01-04-[address] Lizet Linares Work Phone: [facility] Start: 01-04-2023 End: 01-04-2023 Dr. Lizet Linares Work Phone: [facility] Start: 01-01-2023 ambulatory Dnonell Burr [facility] Work Phone: [employer] Comment on above: Medication Update (S tatin use review ) Start: 12-28-2022 End: 12-28-[address] Lizet Linares Work Phone: [facility] Work Phone: Start: 12-28-2022 End: 12-28-[address] Lizet Linares Work Phone: [facility] Start: 12-28-2022 End: 12-28-2022 Dr. Ganesh Garcia Work Phone: [facility] Start: 12-24-2022 End: 12-24-[address] Lizet Linares Work Phone: [facility] Start: 12-24-2022 End: 12-24-2022 Dr. Lizet Linares Work Phone: [facility] Start: 12-23-2022 End: 12-23-[address] Lizet Linares Work Phone: [facility] Work Phone: Start: 12-23-2022 End: 12-23-[address] Lizet Linares Work Phone: [facility] Start: 12-23-2022 End: 12-23-2022 Dr. Ganesh Garcia Work Phone: [facility] Start: 12-22-2022 End: 12-22-[address] Lizet Linares Work Phone: [facility] Work Phone: Start: 12-22-2022 End: 12-22-[address] Lizet Linares Work Phone: [facility] Start: 12-22-2022 End: 12-22-2022 Dr. Ganesh Garcia Work Phone: [facility] Start: 12-21-2022 End: 12-21-[address] Lizet Linares Work Phone: [facility] Start: 12-21-2022 End: 12-21-2022 Dr. Ganesh Garcia Work Phone: [facility] Start: 12-14-2022 End: 12-14-[address] Lizet Linares Work Phone: [facility] Work Phone: Start: 12-14-2022 End: 12-14-[address] Lizet Linares Work Phone: [facility] Start: 12-14-2022 End: 12-14-2022 Dr. Ganesh Garcia Work Phone: [facility] Start: 12-09-2022 Non-patient / Non-visit Dr. Barbara Garcia Work Phone: [facility] Start: 12-09-2022 Dr. Ganesh butler Work Phone: [facility] Start: 12-08-2022 End: 12-08-[address] Lizet Linares Work Phone: [facility] Start: 12-08-2022 End: 12-08-[address] Lizet Linares Work Phone: [facility] Start: 12-08-[address] Ganesh horne Work Phone: [facility] Start: 12-08-2022 End: 12-08-2022 Dr. Ganesh Garcia Work Phone: [facility] Start: 11-24-2022 End: 11-24-[address] Ganesh Garcia Work Phone: [facility] Work Phone: Start: 11-24-2022 End: 11-24-[address] Ganesh Garcia Work Phone: [phone] [place] [address] Start: 11-24-2022 End: 11-24-2022 Dr. Ganesh Garcia Work Phone: [phone] [place] [address] Start: 11-10-2022 End: 11-10-[address] Ganesh Garcia Work Phone: [facility] Start: 11-10-2022 End: 11-10-2022 Dr. Ganesh Garcia Work Phone: [facility] Start: 11-10-2022 End: 11-10-[address] Ganesh Garcia Work Phone: [facility] Work Phone: Start: 11-10-2022 End: 11-10-[address] Ganesh Garcia Work Phone: [facility] Start: 11-10-[address] Ganesh horne Work Phone: [facility] Start: 11-10-2022 End: 11-10-2022 Dr. Ganesh Garcia Work Phone: [facility] Start: 11-09-2022 End: 11-09-[address] Ganesh Garcia Work Phone: [facility] Start: 11-09-2022 End: 11-09-2022 Dr. Ganesh Garcia Work Phone: [facility] Start: 11-05-2022 End: 11-05-[address] Ganesh Garcia Work Phone: [facility] Start: 11-05-2022 End: 11-05-2022 Dr. Ganesh Garcia Work Phone: [facility] Start: 11-05-2022 End: 11-05-2022 Emergency department patient visit Dr. Ganesh Garcia Work Phone: [facility] Start: 11-05-2022 End: 11-05-2022 Dr. Ganesh Garcia Work Phone: [facility] Start: 10-30-2022 End: 10-30-[address] Ganesh Garcia Work Phone: [facility] Work Phone: Start: 10-30-2022 End: 10-30-[address] Ganesh Garcia Work Phone: [phone] [place] [address] Start: 10-30-[address] Ganesh horne Work Phone: [facility] Start: 10-30-2022 End: 10-30-2022 Dr. Ganesh Garcia Work Phone: [facility] Start: 10-28-2022 End: 10-28-[address] Ganesh Garcia Work Phone: [facility] Start: 10-28-2022 End: 10-28-2022 Dr. Ganesh Garcia Work Phone: [facility] Start: 10-27-2022 End: 10-27-[address] Ganesh Garcia Work Phone: [facility] Work Phone: Start: 10-27-2022 End: 10-27-[address] Ganesh Garcia Work Phone: [facility] Start: 10-27-[address] Ganesh horne Work Phone: [phone] [place] [address] Start: 10-27-2022 End: 10-27-2022 Dr. Ganesh Garcia Work Phone: [facility] Start: 10-21-2022 End: 10-21-[address] Ganesh Garcia Work Phone: [facility] Start: 10-21-2022 End: 10-21-2022 Dr. Ganesh Garcia Work Phone: [phone] [place] [address] Start: 10-13-2022 End: 10-13-[address] Ganesh Garcia Work Phone: [phone] [place] [address] Work Phone: Start: 10-13-2022 End: 10-13-[address] Ganesh Garcia Work Phone: [facility] Start: 10-13-[address] Ganesh horne Work Phone: [facility] Start: 10-13-2022 End: 10-13-2022 Dr. Ganesh Garcia Work Phone: [facility] Start: 10-12-2022 End: 10-12-[address] Ganesh Garcia Work Phone: [facility] Start: 10-12-2022 End: 10-12-2022 Dr. Ganesh Garcia Work Phone: [facility] Start: 10-09-2022 End: 10-09-2022 Emergency department patient visit Dr. Ganesh Garcia Work Phone: [facility] Start: 10-09-2022 End: 10-09-2022 Dr. Ganesh Garcia Work Phone: [facility] Start: 09-29-2022 End: 09-29-[address] Ganesh Garcia Work Phone: [phone] [place] [address] Start: 09-29-[address] Ganesh horne Work Phone: [phone] [place] [address] Start: 09-29-2022 End: 09-29-2022 Dr. Ganesh Garcia Work Phone: [phone] [place] [address] Start: 09-15-2022 End: 09-15-[address] Ganesh Garcia Work Phone: [phone] [place] [address] Work Phone: Start: 09-15-2022 End: 09-15-[address] Ganesh Garcia Work Phone: [phone] [place] [address] Start: 09-15-[address] Ganesh horne Work Phone: [phone] [place] [address] Start: 09-15-2022 End: 09-15-2022 Dr. Ganesh Garcia Work Phone: [phone] [address] Start: 09-11-2022 End: 09-11-[address] Ganesh Garcia Work Phone: [phone] [place] [address] Work Phone: Start: 09-11-2022 End: 09-11-[address] Ganesh Garcia Work Phone: [phone] [place] [address] Start: 09-11-[address] Ganesh horne Work Phone: [phone] [place] [address] Start: 09-11-2022 End: 09-11-2022 Dr. Ganesh Garcia Work Phone: [phone] [place] [address] Start: 09-09-2022 End: 09-09-[address] Ganesh Garcia Work Phone: [facility] Start: 09-09-2022 End: 09-09-2022 Dr. Ganesh Garcia Work Phone: [facility] Start: 09-01-2022 End: 09-01-[address] Ganesh Garcia Work Phone: [facility] Start: 09-01-2022 End: 09-01-[address] Ganesh Garcia Work Phone: [facility] Work Phone: Start: 09-01-2022 End: 09-01-[address] Ganesh Garcia Work Phone: [facility] Start: 08-24-2022 End: 08-24-[address] Ganesh Garcia Work Phone: [facility] Start: 08-24-2022 End: 08-24-2022 Emergency department patient visit Dr. Ganesh Garcia Work Phone: [facility] Start: 08-18-2022 End: 08-18-[address] Ganesh Garcia Work Phone: [facility] Work Phone: Start: 08-18-2022 End: 08-18-[address] Ganesh Garcia Work Phone: [facility] Start: 08-18-[address] Luis Carlos Lopez Work Phone: [facility] Start: 08-04-2022 End: 08-04-[address] Jarred Lopez Work Phone: [facility] Work Phone: Start: 08-04-2022 End: 08-04-[address] Jarred Lopez Work Phone: [facility] Start: 08-04-[address] Luis Carlos Lopez Work Phone: [facility] Start: 07-20-2022 End: 07-20-[address] Jarred Lopez Work Phone: [facility] Work Phone: Start: 07-20-2022 End: 07-20-[address] Jarred Lopez Work Phone: [facility] Start: 07-20-[address] Luis Carlos Lopez Work Phone: [facility] Start: 07-13-2022 End: 07-13-[address] Ganesh Garcia Work Phone: [facility] Start: 07-13-[address] Luis Carlos Lopez Work Phone: [facility] Start: 07-07-2022 End: 07-07-[address] Jarred Lopez Work Phone: [facility] Start: 07-07-[address] Luis Carlos Lopez Work Phone: [facility] Start: 07-03-2022 End: 07-03-[address] Jarred Lopez Work Phone: [facility] Work Phone: Start: 07-03-2022 End: 07-03-[address] Jarred Lopez Work Phone: [facility] Start: 07-03-[address] Luis Carlos Lopez Work Phone: [facility] Start: 07-02-2022 Non-patient / Non-visit Dr. Adriana Lopez Work Phone: [facility] Start: 07-02-2022 End: 07-02-[address] Jarred Lopez Work Phone: [facility] Start: 07-01-2022 End: 07-01-[address] Jarred Lopez Work Phone: [facility] Work Phone: Start: 07-01-2022 End: 07-01-[address] Jarred Lopez Work Phone: [facility] Start: 07-01-[address] Luis Carlos Lopez Work Phone: [facility] Start: 06-23-2022 End: 06-23-[address] Jarred Lopez Work Phone: [facility] Work Phone: Start: 06-23-2022 End: 06-23-[address] Jarred Lopez Work Phone: [facility] Start: 06-12-2022 End: 06-12-[address] Jarred Lopez Work Phone: [facility] Work Phone: Start: 06-12-2022 End: 06-12-[address] Jarred Lopez Work Phone: [facility] Start: 06-12-2022 End: 06-12-[address] Jarred Lopez Work Phone: [facility] Start: 06-09-2022 Non-patient / Non-visit Dr. Adriana oLpez Work Phone: [facility] Start: 06-09-2022 End: 06-09-[address] Jarred Lopez Work Phone: [facility] Start: 06-09-[address] Luis Carlos Lopez Work Phone: [facility] Start: 05-26-[address] Luis Carlos Lopez Work Phone: [facility] Start: 05-21-2022 Non-patient / Non-visit Dr. Adriana Lopez Work Phone: [facility] Start: 05-21-2022 End: 05-21-2022 Evaluation and management of inpatient Dr. Jarred Lopez Work Phone: [facility] Start: 05-20-2022 End: 05-20-[address] Jarred Lopez Work Phone: [facility] Start: 05-20-[address] Luis Carlos Lopez Work Phone: [facility] Start: 05-12-2022 End: 05-12-[address] Jarred Lopez Work Phone: [facility] Start: 05-12-[address] Luis Carlos Lopez Work Phone: [facility] Start: 05-04-2022 End: 05-04-[address] Jarred Lopez Work Phone: [facility] Start: 05-03-2022 End: 05-04-2022 Emergency department patient visit Dr. Jarred Lopez Work Phone: [facility] Start: 05-03-2022 End: 05-04-2022 Non-patient / Non-visit Dr. Jarred Lopez Work Phone: [facility] Start: 04-28-2022 End: 04-28-[address] Jarred Lopez Work Phone: [facility] Start: 04-28-2022 End: 04-28-[address] Jarred Lopez Work Phone: [facility] Start: 04-28-[address] Luis Carlos Lopez Work Phone: [facility] Start: 04-25-2022 Non-patient / Non-visit Dr. Adriana Lopez Work Phone: [facility] Start: 04-25-2022 Non-patient / Non-visit Dr. Adriana Lopez Work Phone: [facility] Start: 04-24-2022 Non-patient / Non-visit Dr. Adriana Lopez Work Phone: [facility] Start: 04-24-2022 End: 04-25-2022 Evaluation and management of inpatient Dr. Jarred Lopez Work Phone: [facility] Start: 04-17-2022 End: 04-17-[address] Jarred Lopez Work Phone: [facility] Start: 04-17-[address] Luis Carlos Lopez Work Phone: [facility] Start: 04-13-2022 End: 04-13-[address] Jarred Lopez Work Phone: [facility] Start: 04-13-[address] Luis Carlos Lopez Work Phone: [facility] Start: 04-06-2022 End: 04-06-[address] Jarred Lopez Work Phone: [facility] Start: 04-03-2022 [facility] Comment on above: Population Health Na vigation Outreach (HCC) Start: 03-30-2022 Non-patient / Non-visit Dr. Adriana Lopez Work Phone: [facility] Start: 03-29-2022 Non-patient / Non-visit Dr. Adriana Lopez Work Phone: [facility] Start: 03-28-2022 Non-patient / Non-visit Dr. Adriana Lopez Work Phone: [facility] Start: 03-27-2022 Non-patient / Non-visit Dr. Adriana Lopez Work Phone: [facility] Start: 03-26-2022 Non-patient / Non-visit Dr. Adriana Lopez Work Phone: [facility] Start: 03-25-2022 Non-patient / Non-visit Dr. Adriana Lopez Work Phone: [facility] Start: 03-24-2022 Non-patient / Non-visit Dr. Adriana Lopez Work Phone: [facility] Start: 03-23-2022 Non-patient / Non-visit Dr. Adriana Lopez Work Phone: [facility] Start: 03-22-2022 Non-patient / Non-visit Dr. Adriana Lopez Work Phone: [facility] Start: 03-21-2022 Non-patient / Non-visit Dr. Adriana Lopez Work Phone: [facility] Start: 03-20-2022 Non-patient / Non-visit Dr. Adriana Lopez Work Phone: [facility] Start: 03-20-2022 End: 03-30-2022 Evaluation and management of inpatient Dr. Jarred Lopez Work Phone: [facility] Start: 02-24-2022 End: 02-24-2022 Emergency department patient visit [facility] Start: 01-13-2022 End: 01-13-2022 Emergency department patient visit [facility] Start: 09-27-2021 End: 09-27-2021 Emergency department patient visit [facility] Start: 09-29-2018 Patient encounter procedure Tj L Calixto Facility:[facility] Start: 08-03-2018 Patient encounter procedure Tj L Calixto Facility:[facility] Start: 06-01-2018 Patient encounter procedure Tj L Calixto Facility:[facility] Start: 03-08-2018 Ambulatory SIXTO CALIXTO Facility :[facility] Start: 02-22-2018 Patient encounter procedure Tj L Calixto Facility:[facility] Start: 11-30-2017 Patient encounter procedure Tj L Calixto Facility:[facility] Start: 12-10-2008 End: 06-03-2015 Patient encounter status Annabel Agrawal MA [facility] Work Phone: Procedures Date Procedure Procedure Detail Performing Clinician Start: 07-26-2025 Cardiovascular stres s test using pharmacologic stress agent Dr. Lizet Linares MD Work Phone: Start: 07-06-2025 MRI of lumbar spine Dr. Lizet Linares MD Work Phone: Start: 06-28-2025 Blood count smear rscp w/mnl difrntl wbc count Dr. Lizet Linares MD Work Phone: Start: 06-28-2025 Mean corpuscular hem oglobin concentration determination Dr. Lizet Linares MD Work Phone: Start: 06-28-[address] Junie Linares MD Work Phone: Start: 06-28-2025 Nucleated red blood cell count procedure Dr. Lizet Linares MD Work Phone: Start: 06-28-2025 Platelet mean volume determination Dr. Lizet Linares MD Work Phone: Start: 06-01-2025 Blood count smear mc rscp w/mnl difrntl wbc count Dr. Lizet Linares MD Work Phone: Start: 06-01-[address] Lizet Linares MD Work Phone: Start: 06-01-2025 Mean corpuscular hem oglobin concentration determination Dr. Lizet Linares MD Work Phone: Start: 06-01-[address] Junie Linares MD Work Phone: Start: 06-01-2025 Nucleated [...] Lizet Linares MD Work Phone: Start: 05-28-[address] Lizet Linares MD Work Phone: Start: 05-26-2025 Blood count smear mc rscp w/mnl difrntl wbc count Dr. Lizet Linares MD Work Phone: Start: 05-26-[address] Lizet Linares MD Work Phone: Start: 05-26-2025 Mean corpuscular hem oglobin concentration determination Dr. Lizet Linares MD Work Phone: Start: 05-26-[address] Junie Linares MD Work Phone: Start: 05-26-2025 Nucleated red blood cell count procedure Dr. Lizet Linares MD Work Phone: Start: 05-26-2025 Platelet mean volume determination Dr. Lizet Linares MD Work Phone: Start: 05-07-2025 Blood count smear mc rscp w/mnl difrntl wbc count Dr. Lizet Linares MD Work Phone: Start: 05-07-2025 Mean corpuscular hem oglobin concentration determination Dr. Lizet Linares MD Work Phone: Start: 05-07-[address] Junie Linares MD Work Phone: Start: 05-07-2025 Nucleated red blood cell count procedure Dr. Lizet Linares MD Work Phone: Start: 05-07-2025 Platelet mean volume determination Dr. Lizet Linares MD Work Phone: Start: 04-12-2025 Gram stain microscopy Eliza Linares [...] Start: 06-09-2031 Urine microalbumin profile [facility] Start: 06-25-2025 Influenza vaccination Influenza Vaccine (Season Ended) [facility] Start: 06-01-2025 Patient discharge [facility] Start: 05-30-2025 Referral to general surgeon [facility] Start: 05-29-2025 [facility] Start: 05-29-2025 Consultation [facility] Start: 05-29-2025 Complete blood count [facility] Start: 05-28-2025 Following clinical pathway protocol [facility] Start: 05-28-2025 Bacteria identified in Blood by Culture Blood Culture [facility] Start: 05-28-2025 Blood culture [facility] Start: 05-28-2025 Following clinical pathway protocol [facility] Start: 05-28-2025 Ambulation without limitation [facility] Start: 05-28-2025 Assessment of risk of venous thromboembolism [facility] Start: 05-28-2025 Care regimes management [facility] Start: 05-28-2025 Incentive spirometry [facility] Start: 05-28-2025 Insertion of catheter into peripheral vein [facility] Start: 05-28-[address] [facility] Start: 05-28-2025 Oxygen therapy [facility] Start: 05-28-2025 Providing care according to standard [facility] Start: 05-28-2025 Referral to service [facility] Start: 05-28-2025 End: 05-28-2025 [facility] Start: 05-28-2025 Verification routine [facility] Start: 05-28-2025 Admission procedure [facility] Start: 05-28-2025 [facility] Start: 05-28-2025 Patient referral to dietitian [facility] Start: 05-26-2025 Emergency dept visit high severity&threat funcj [facility] Start: 05-26-2025 Intravenous infusion [facility] Start: 05-26-2025 Iv infusion therapy/prophylaxis /dx 1st to 1 hr [facility] Start: 05-26-2025 Therapeutic injection iv push each new drug [facility] Start: 05-26-2025 Vedolizumab therapy [facility] Start: 05-26-2025 [facility] Start: 05-26-2025 Following clinical pathway protocol [facility] Start: 01-22-2025 [facility] Start: 01-22-2025 [facility] Start: 10-25-2024 Medicare Advantage Annual Wellness Visit Medicare Advantage Annual Wellness Visit [facility] Start: 10-24-2024 [facility] Start: 06-25-2024 Covid-19 Vaccine () Covid-19 Vaccine () [facility] Start: 06-25-2024 Influenza vaccination [facility] Start: 04-18-2024 End: 04-18-2024 Patient encounter procedure 04/18/2024 12:20 PM EDT Office Visit [facility] [address] [place] [address] 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 APRN.[employer] [address] [place] [address] Yearly Exam [facility] Comment on above: Yearly Exam Start: 04-07-2024 3 comp foot exam completed DIABETIC FOOT EXAM [facility] Start: 04-07-2024 ANNUAL PCP TEAM CHRONIC DISEASE VISIT ANNUAL PCP TEAM CHRONIC DISEASE VISIT [facility] Start: 04-07-2024 COVID-19 VACCINE (4 - Booster for Pfizer series) COVID-19 VACCINE (4 - Booster for Pfizer series) [facility] Comment on above: Postponed from 07/28/2022 (Declined at t his time) Start: 04-07-2024 COVID-19 VACCINE (4 - Pfizer series) COVID-19 VACCINE (4 - Pfizer series) [facility] Comment on above: Postponed from 07/28/2022 (Declined at t his time) Start: 04-07-2024 Diabetic foot examination Diabetic Foot Exam [facility] Start: 04-07-2024 SHINGRIX VACCINE (1 of 2) SHINGRIX VACCINE (1 of 2) Britney Thomas Comment on above: Postponed from 2013 (Declined at t his time) Start: 03-30-2024 End: 03-30-2024 Patient encounter procedure 03/30/2024 12:40 PM EDT Office Visit [facility] [place] [address] [place] [address] Dwayne Lopez MD [address] [place] [address] ER follow up; [facility] 03/24/2024 head injury-PCP has ER summary on desk [facility] [place] Comment on above: ER follow up; [facility] 03/24/2024 head injury- PCP has ER summary on desk Start: 03-24-2024 ANNUAL PCP TEAM CHRONIC DISEASE VISIT ANNUAL PCP TEAM CHRONIC DISEASE VISIT [facility] Start: 02-25-2024 End: 02-25-2024 Blood chemistry [facility] Start: 02-25-2024 End: 02-25-2024 Thyroid stimulating hormone measurement [facility] Start: 02-25-2024 End: 02-25-2024 [facility] Start: 01-20-2024 End: 01-20-2024 [facility] Start: 01-20-2024 [facility] Start: 01-17-2024 Urine culture [facility] Start: 01-17-2024 [facility] Start: 01-05-2024 Patient discharge [facility] Start: 01-01-2024 End: 01-01-2024 Following clinical pathway protocol [facility] Start: 01-01-2024 Assessment of risk of venous thromboembolism [facility] Start: 01-01-2024 Care regimes management [facility] Start: 01-01-2024 Fall prevention [facility] Start: 01-01-2024 Inhalation therapy procedure [facility] Start: 01-01-2024 Insertion of catheter into peripheral vein [facility] Start: 01-01-2024 Introduction of urinary catheter [facility] Start: 01-01-2024 Measuring intake and output [facility] Start: 01-01-[address] [facility] Start: 01-01-2024 Oxygen therapy [facility] Start: 01-01-2024 Providing care according to standard [facility] Start: 01-01-2024 Provision of activity privileges [facility] Start: 01-01-2024 Referral to occupational therapist [facility] Start: 01-01-2024 Referral to service [facility] Start: 01-01-2024 [facility] Start: 01-01-2024 Verification routine [facility] Start: 01-01-2024 Admission procedure [facility] Start: 01-01-2024 Hospital admission, emergency, from emergency room, medical nature [facility] Start: 01-01-2024 Patient referral to dietitian [facility] Start: 11-24-2023 Patient discharge [facility] Start: 11-22-2023 [facility] Start: 11-22-2023 Blood chemistry [facility] Start: 11-21-2023 Blood chemistry [facility] Start: 11-21-2023 [facility] Start: 11-20-2023 Blood chemistry [facility] Start: 11-19-2023 End: 11-19-2023 [facility] Start: 11-19-2023 Following clinical pathway protocol [facility] Start: 11-19-2023 Ambulation without limitation [facility] Start: 11-19-2023 Assessment of risk of venous thromboembolism [facility] Start: 11-19-2023 Care regimes management [facility] Start: 11-19-2023 Incentive spirometry [facility] Start: 11-19-2023 Insertion of catheter into peripheral vein [facility] Start: 11-19-2023 Measuring intake and output [facility] Start: 11-19-[address] [facility] Start: 11-19-2023 Providing care according to standard [facility] Start: 11-19-2023 Provision of activity privileges [facility] Start: 11-19-2023 Referral to occupational therapist [facility] Start: 11-19-2023 Referral to service [facility] Start: 01-26-2024 Verification routine [facility] Start: 11-19-2023 Admission procedure [facility] Start: 11-19-2023 Enteric precautions [facility] Start: 11-19-2023 Measurement of occult blood in stool specimen using immunoassay [facility] Start: 11-19-2023 Patient referral to dietitian [facility] Start: 10-25-2023 Behavioral Health Screening Behavioral Health Screening [facility] Start: 10-25-2023 Depression Assessment Depression Assessment [facility] Start: 2023 Hepatitis B Vaccine (1 of 3 - Risk 3-dose series) Hepatitis B Vaccine (1 of 3 - Risk 3-dose series) [facility] Start: 2023 RSV Vaccine (1 - 1-dose 60+ series) RSV Vaccine (1 - 1-dose 60+ series) [facility] Start: 2023 RSV Vaccine (1 - Risk 60-74 years 1-dose series) RSV Vaccine (1 - Risk 60-74 years 1-dose series) [facility] Start: 06-25-2023 Covid-19 Vaccine (2022- season) Covid-19 Vaccine (2022- season) [facility] Start: 06-25-2023 Influenza vaccination [facility] Start: 04-07-2023 End: 06-07-2023 ALBUMIN/CREAT RATIO RND UR ALBUMIN/CREAT RATIO RND UR Lab Routine Diabetes mellitus type 2 with neurological manifestations (HCC) Expected: 04/07/2023, Expires: 06/07/[address] [facility] Work Phone: Comment on above: Expected: 04/07/2023, Expires: 3 Start: 04-07-2023 End: 06-07-2023 CBC W Auto Differential panel - Blood CBC + DIFF Lab Routine Diabetes mellitus type 2 with neurological manifestations (HCC) Expected: 04/07/2023, Expires: 06/07/[address] [facility] Work Phone: Comment on above: Expected: 04/07/2023, Expires: 3 Start: 04-07-2023 End: 06-07-2023 Comprehensive metabolic 2000 panel - Serum or Plasma COMP METABOLIC PANEL Lab Routine Diabetes mellitus type 2 with neurological manifestations (HCC) Expected: 04/07/2023, Expires: 06/07/[address] [facility] Work Phone: Comment on above: Expected: 04/07/2023, Expires: 3 Start: 04-07-2023 End: 06-07-2023 Hemoglobin A1c in Blood HGB A1C Lab Routine Diabetes mellitus type 2 with neurological manifestations (HCC) Expected: 04/07/2023, Expires: 06/07/[address] [facility] Work Phone: Comment on above: Expected: 04/07/2023, Expires: 3 Start: 04-07-2023 End: 06-07-2023 Hepatic function 2000 panel - Serum or Plasma HEPATIC FUNCTION PNL Lab Routine Onychomycosis Expected: 04/07/2023, Expires: 06/07/[address] [facility] Work Phone: Comment on above: Expected: 04/07/2023, Expires: 3 Start: 04-07-2023 End: 06-07-2023 LIPID PANEL, NONFASTING LIPID PANEL, NONFASTING Lab Routine Diabetes mellitus type 2 with neurological manifestations (HCC) Expected: 04/07/2023, Expires: 06/07/[address] [facility] Work Phone: Comment on above: Expected: 04/07/2023, Expires: 3 Start: 04-07-2023 End: 06-07-2023 Thyrotropin [Units/volume] in Serum or Plasma TSH BLD Lab Routine Acquired hypothyroidism Expected: 04/07/2023, Expires: 06/07/[address] [facility] Work Phone: Comment on above: Expected: 04/07/2023, Expires: 3 Start: 01-29-2023 [facility] Start: 11-05-2022 [facility] Start: 10-25-2022 DEPRESSION ASSESSMENT DEPRESSION ASSESSMENT [facility] Start: 10-09-2022 [facility] Work Phone: Start: 08-24-2022 [facility] Start: 07-28-2022 COVID-19 VACCINE (4 - Booster for Pfizer series) COVID-19 VACCINE (4 - Booster for Pfizer series) [facility] Start: 07-13-2022 [facility] Work Phone: Start: 06-25-2022 Influenza vaccination [facility] Start: 05-22-2022 Blood chemistry [facility] Work Phone: Start: 05-22-2022 Complete blood count [facility] Work Phone: Start: 05-22-2022 Partial thromboplastin time, activated [facility] Work Phone: Start: 05-22-2022 Prothrombin time [facility] Work Phone: Start: 05-21-[address] [facility] Work Phone: Start: 05-21-2022 Patient discharge [facility] Work Phone: Start: 05-21-2022 Provision of activity privileges [facility] Work Phone: Start: 05-21-2022 Scheduling [facility] Work Phone: Start: 05-21-2022 Taking patient vital signs [facility] Work Phone: Start: 05-21-2022 Vascular disease risk assessment [facility] Work Phone: Start: 05-21-2022 [facility] Work Phone: Start: 05-21-2022 Referral to occupational therapist [facility] Work Phone: Start: 05-21-2022 Referral to service [facility] Work Phone: Start: 05-21-2022 Catheterization of vein [facility] Work Phone: Start: 05-21-2022 Medication not administered [facility] Work Phone: Start: 05-21-2022 [facility] Work Phone: Start: 05-21-2022 Application of intermittent pneumatic compression device [facility] Work Phone: Start: 05-21-2022 Following clinical pathway protocol [facility] Work Phone: Start: 05-21-2022 Assessment of risk of venous thromboembolism [facility] Work Phone: Start: 05-21-2022 Care regimes management [facility] Work Phone: Start: 05-21-2022 Insertion of catheter into peripheral vein [facility] Work Phone: Start: 05-21-2022 Introduction of urinary catheter [facility] Work Phone: Start: 05-21-2022 Measuring intake and output [facility] Work Phone: Start: 05-21-2022 Oxygen therapy [facility] Work Phone: Start: 05-21-2022 Providing care according to standard [facility] Work Phone: Start: 05-21-2022 Provision of activity privileges [facility] Work Phone: Start: 05-21-2022 Referral to public health dietitian [facility] Work Phone: Start: 05-21-2022 Referral to service [facility] Work Phone: Start: 05-21-2022 [facility] Work Phone: Start: 05-21-2022 Verification routine [facility] Work Phone: Start: 05-21-2022 Admission procedure [facility] Work Phone: Start: 05-03-2022 [facility] Work Phone: Start: 04-25-2022 Patient discharge [facility] Work Phone: Start: 04-24-2022 Ambulation without limitation [facility] Work Phone: Start: 04-24-2022 Assessment of risk of venous thromboembolism [facility] Work Phone: Start: 04-24-2022 Care regimes management [facility] Work Phone: Start: 04-24-2022 Catheterization of vein [facility] Work Phone: Start: 04-24-2022 Insertion of catheter into peripheral vein [facility] Work Phone: Start: 04-24-2022 Measuring intake and output [facility] Work Phone: Start: 04-24-2022 Oxygen therapy [facility] Work Phone: Start: 04-24-2022 Providing care according to standard [facility] Work Phone: Start: 04-24-2022 Referral to service [facility] Work Phone: Start: 04-24-2022 [facility] Work Phone: Start: 04-24-2022 Following clinical pathway protocol [facility] Work Phone: Start: 04-24-2022 Admission procedure [facility] Work Phone: Start: 03-30-2022 Patient discharge [facility] Work Phone: Start: 03-30-2022 [facility] Work Phone: Start: 03-25-2022 Oxygen therapy [facility] Work Phone: Start: 03-20-2022 Assessment of risk of venous thromboembolism [facility] Work Phone: Start: 03-20-2022 Catheterization of vein [facility] Work Phone: Start: 03-20-2022 Insertion of catheter into peripheral vein [facility] Work Phone: Start: 03-20-2022 Measuring intake and output [facility] Work Phone: Start: 03-20-2022 Providing care according to standard [facility] Work Phone: Start: 03-20-2022 Provision of activity privileges [facility] Work Phone: Start: 03-20-2022 Referral to occupational therapist [facility] Work Phone: Start: 03-20-2022 Referral to service [facility] Work Phone: Start: 03-20-2022 [facility] Work Phone: Start: 03-20-2022 Following clinical pathway protocol [facility] Work Phone: Start: 03-20-2022 Admission procedure [facility] Work Phone: Start: 01-13-2022 Bacteria identified in Urine by Culture Urine Culture [facility] Work Phone: Start: 07-21-2021 COVID-19 VACCINE (3 - Booster for Pfizer series) COVID-19 VACCINE (3 - Booster for Pfizer series) [facility] Start: 04-15-2021 COVID-19 VACCINE (3 - Booster for Pfizer series) COVID-19 VACCINE (3 - Booster for Pfizer series) [facility] Start: 03-25-2021 Glaucoma screening Dilated Retinal Exam [facility] Start: 03-25-2021 Hepatitis C antibody, confirmatory test DILATED RETINAL EXAM [facility] Start: 01-24-2021 ANNUAL PCP TEAM CHRONIC DISEASE VISIT ANNUAL PCP TEAM CHRONIC DISEASE VISIT [facility] Start: 12-25-2020 Hepatitis B screening URINE ALBUMIN:CREATININE RATIO [facility] Start: 10-27-2020 COLORECTAL CANCER SCREENING COLORECTAL CANCER SCREENING [facility] Start: 10-27-2020 FECAL OCCULT BLOOD FECAL OCCULT BLOOD [facility] Start: 10-27-2020 Screening for malignant neoplasm of colon [facility] Start: 10-26-2020 Creatinine measurement Serum Creatinine [facility] Start: 10-26-2020 SERUM CREATININE SERUM CREATININE [facility] Start: 09-18-2020 Hepatitis B surface antibody level LDL CHOLESTEROL [facility] Start: 09-04-2020 Complete blood count Hemoglobin/Hematocrit [facility] Start: 02-22-2020 Hemoglobin A1c measurement HbA1C [facility] Start: 02-22-2020 Hemoglobin A1c/Hemoglobin.total in Blood HBA1C [facility] Start: 07-04-2019 PNEUMOCOCCAL (2 - PCV) PNEUMOCOCCAL (2 - PCV) [facility] Start: 06-21-2018 3 comp foot exam completed DIABETIC FOOT EXAM [facility] Start: 06-21-2018 Adult depression screening assessment DEPRESSION SCREENING [facility] Start: 01-22-[address] [facility] Start: 01-22-2018 Screening for malignant neoplasm of breast Mammogram Screening [facility] Start: 07-28-2017 End: 07-28-2017 [address]oint[address] [facility] Work Phone: Start: 2013 SHINGRIX VACCINE (1 of 2) SHINGRIX VACCINE (1 of 2) [facility] Start: 08-14-2010 End: 08-14-2010 Follow Up Appt 1 month Follow Up Appt 1 month [facility] Work Phone: Start: 08-14-2010 End: 08-14-2010 Iiv3 vaccine split virus 0.5 ml dosage im use Flu vaccine > age 3 yr (with preservative) [facility] Work Phone: Start: 03-10-2010 End: 08-11-2010 Blood count complete automated *CBC without Diff [facility] Work Phone: Start: 03-10-2010 End: 08-11-2010 Comprehensive metabolic panel *CMP Complete Metabolic Panel [facility] Work Phone: Start: 03-10-2010 End: 03-10-2010 Follow Up Appt 2 weeks Follow Up Appt 2 weeks [facility] Work Phone: Start: 03-10-2010 End: 11-19-2014 Gastroenterology Referral Gastroenterology Referral Kristopher Welshtemi, [address], [address], [place], [address] [facility] Work Phone: Start: 03-10-2010 End: 08-11-2010 Hemoglobin A1c/Hemoglobin.total mass fraction (Bld) *HgA1C [facility] Work Phone: Start: 03-10-2010 End: 08-11-2010 Protein mass conc *Lipid Profile [facility] Work Phone: Start: 03-10-2010 End: 08-11-2010 Thyrotropin Qn *TSH [facility] Work Phone: Start: 03-10-2010 End: 08-11-2010 Urinls dip stick/tablet reagnt non-auto micrscpy *Urinalysis [facility] Work Phone: Start: 2008 COLOGUARD (FIT-DNA) COLOGUARD (FIT-DNA) [facility] Start: 2008 Colonoscopy COLONOSCOPY [facility] Start: [address] COLONOGRAPHY [facility] Start: 2008 Screening for malignant neoplasm of colon [facility] Start: 2008 SIGMOIDOSCOPY SIGMOIDOSCOPY [facility] Start: 1982 HEPATITIS B (1 of 3 - Risk 3-dose series) HEPATITIS B (1 of 3 - Risk 3-dose series) [facility] Start: 1981 Anxiety Screening Anxiety Screening [facility] Start: 1981 Depression Screening Depression Screening [facility] Alanine aminotransfe rase [Enzymatic activity/volume] in Serum or Plasma [facility] Work Phone: Alanine aminotransfe rase [Enzymatic activity/volume] in Serum or Plasma [facility] Alanine aminotransfe rase [Enzymatic activity/volume] in Serum or Plasma [facility] Albumin [Mass/volume ] in Serum or Plasma [facility] Work Phone: Albumin [Mass/volume ] in Serum or Plasma [facility] Albumin [Mass/volume ] in Serum or Plasma [facility] Alkaline phosphatase [Enzymatic activity/volume] in Serum or Plasma [facility] Work Phone: Alkaline phosphatase [Enzymatic activity/volume] in Serum or Plasma [facility] Alkaline phosphatase [Enzymatic activity/volume] in Serum or Plasma [facility] Anion gap in Serum o r Plasma [facility] Anion gap measurement [facility] Work Phone: Anion gap measurement [facility] Anion gap measurement [facility] Anion gap measurement [facility] Anion gap measurement [facility] Anion gap measurement [facility] Aspartate aminotransferase [Enzymatic activity/volume] in Serum or Plasma [facility] Work Phone: Aspartate aminotransferase [Enzymatic activity/volume] in Serum or Plasma [facility] Aspartate aminotransferase [Enzymatic activity/volume] in Serum or Plasma [facility] Bacteria identified in Urine by Culture Urine Culture [facility] Work Phone: Bilirubin measuremen t, urine [facility] Bilirubin, total measurement [facility] Work Phone: Bilirubin, total measurement [facility] Bilirubin, total measurement [facility] Bilirubin.direct [Mass/volume] in Serum or Plasma [facility] BUN/Creatinine ratio [facility] Work Phone: BUN/Creatinine ratio [facility] BUN/Creatinine ratio [facility] BUN/Creatinine ratio [facility] BUN/Creatinine ratio [facility] BUN/Creatinine ratio [facility] BUN/Creatinine ratio [facility] Calcium [Mass/volume ] in Serum or Plasma [facility] Work Phone: Calcium [Mass/volume ] in Serum or Plasma [facility] Calcium [Mass/volume ] in Serum or Plasma [facility] Calcium [Mass/volume ] in Serum or Plasma [facility] Calcium [Mass/volume ] in Serum or Plasma [facility] Calcium [Mass/volume ] in Serum or Plasma [facility] Calcium [Mass/volume ] in Serum or Plasma [facility] Carbon dioxide, tota l [Moles/volume] in Central venous blood [facility] Carbon dioxide, tota l [Moles/volume] in Serum or Plasma [facility] Work Phone: Carbon dioxide, tota l [Moles/volume] in Serum or Plasma [facility] Carbon dioxide, tota l [Moles/volume] in Serum or Plasma [facility] Carbon dioxide, tota l [Moles/volume] in Serum or Plasma [facility] Carbon dioxide, tota l [Moles/volume] in Serum or Plasma [facility] Carbon dioxide, tota l [Moles/volume] in Serum or Plasma [facility] Cardiac event recording [facility] Chloride [Moles/volu me] in Serum or Plasma [facility] Work Phone: Chloride [Moles/volu me] in Serum or Plasma [facility] Chloride [Moles/volu me] in Serum or Plasma [facility] Chloride [Moles/volu me] in Serum or Plasma [facility] Chloride [Moles/volu me] in Serum or Plasma [facility] Chloride [Moles/volu me] in Serum or Plasma [facility] Cholesterol [Mass/vo lume] in Serum or Plasma [facility] Work Phone: Cholesterol in HDL [Mass/volume] in Serum or Plasma [facility] Work Phone: Cholesterol in LDL [Mass/volume] in Serum or Plasma [facility] Work Phone: Clostridioides diffi cile DNA [Presence] in Unspecified specimen by ZHANE with probe detection [facility] Creatinine [Mass/vol ume] in Serum or Plasma [facility] Creatinine [Moles/vo lume] in Serum or Plasma [facility] Work Phone: Creatinine [Moles/vo lume] in Serum or Plasma [facility] Creatinine [Moles/vo lume] in Serum or Plasma [facility] Creatinine [Moles/vo lume] in Serum or Plasma [facility] Creatinine [Moles/vo lume] in Serum or Plasma [facility] Creatinine [Moles/vo lume] in Serum or Plasma [facility] End: 03-08-2026 DBT Breast - bilateral screening [facility] SCRE[facility] Radiology Routine Encounter for screening mammogram for breast cancer 1 Occurrences starting 02/06/2025 until 03/08/[address] [facility] Work Phone: Comment on above: 1 Occurrences starting 02/06/2025 until 03/08/2026 Erythrocyte mean corpuscular volume determination [facility] Erythrocyte mean corpuscular volume determination [facility] Erythrocyte mean corpuscular volume determination [facility] Erythrocyte mean corpuscular volume determination [facility] Erythrocyte mean corpuscular volume determination [facility] Gastrointestinal pathogens panel - Stool by ZHANE with probe detection [facility] Glucose [Mass/volume ] in Serum or Plasma [facility] Work Phone: Glucose [Mass/volume ] in Serum or Plasma [facility] Glucose [Mass/volume ] in Serum or Plasma [facility] Glucose [Mass/volume ] in Serum or Plasma [facility] Glucose [Mass/volume ] in Serum or Plasma [facility] Glucose [Mass/volume ] in Serum or Plasma [facility] Glucose [Mass/volume ] in Serum or Plasma [facility] Hematocrit [Volume Fraction] of Blood [facility] Work Phone: Hematocrit [Volume Fraction] of Blood [facility] Hematocrit [Volume Fraction] of Blood [facility] Hematocrit [Volume Fraction] of Blood [facility] Hematocrit [Volume Fraction] of Blood [facility] Hematocrit [Volume Fraction] of Blood [facility] Hemoglobin [Mass/vol ume] in Blood [facility] Work Phone: Hemoglobin [Mass/vol ume] in Blood [facility] Hemoglobin [Mass/vol ume] in Blood [facility] Hemoglobin [Mass/vol ume] in Blood [facility] Hemoglobin [Mass/vol ume] in Blood [facility] Hemoglobin [Mass/vol ume] in Blood [facility] Hemoglobin [Presence ] in Urine [facility] Hemoglobin A1c/Hemoglobin.total in Blood [facility] INR in Blood by Coagulation assay [facility] Work Phone: Lactoferrin [Presenc e] in Stool by Immunoassay [facility] Leukocytes [#/volume ] in Blood [facility] Work Phone: Leukocytes [#/volume ] in Blood [facility] Leukocytes [#/volume ] in Blood [facility] Leukocytes [#/volume ] in Blood [facility] Leukocytes [#/volume ] in Blood [facility] Leukocytes [#/volume ] in Blood [facility] Lipid 1996 panel - S sondra or Plasma [facility] Work Phone: Magnesium [Mass/volu me] in Serum or Plasma [facility] Mean corpuscular hemoglobin concentration determination [facility] Work Phone: Mean corpuscular hemoglobin concentration determination [facility] Mean corpuscular hemoglobin concentration determination [facility] Mean corpuscular hemoglobin concentration determination [facility] Mean corpuscular hemoglobin concentration determination [facility] Mean corpuscular hemoglobin concentration determination [facility] Mean corpuscular hemoglobin determination [facility] Work Phone: Mean corpuscular hemoglobin determination [facility] Mean corpuscular hemoglobin determination [facility] Mean corpuscular hemoglobin determination [facility] Mean corpuscular hemoglobin determination [facility] Mean corpuscular hemoglobin determination [facility] Measurement of keton es in urine using dipstick [facility] Measurement of renal function [facility] Work Phone: Measurement of renal function [facility] Measurement of renal function [facility] Measurement of renal function [facility] Measurement of renal function [facility] Measurement of renal function [facility] Measurement of renal function [facility] End: 04-07-2025 MG Breast Screening [facility]CRE[facility] Radiology Routine Encounter for screening mammogram for breast cancer 1 Occurrences starting 03/08/2024 until 04/07/[address] [facility] Work Phone: Comment on above: 1 Occurrences starting 03/08/2024 until 04/07/2025 Microscopic urinalysis [facility] Neutrophil count [facility] Work Phone: Neutrophil count [facility] Neutrophil count [facility] Neutrophil count [facility] Neutrophil count [facility] Neutrophil percent differential count [facility] Work Phone: Neutrophil percent differential count [facility] Neutrophil percent differential count [facility] Neutrophil percent differential count [facility] Neutrophil percent differential count [facility] NM Heart Views W str ess and W radionuclide IV [facility] Ova and parasites identified in Unspecified specimen by Light microscopy [facility] Partial thromboplast in time, activated [facility] Work Phone: Patient Education [facility] Now in Work Phone: Patient referral [facility] Work Phone: pH of Urine [facility] Platelets [#/volume] in Blood [facility] Work Phone: Platelets [#/volume] in Blood [facility] Platelets [#/volume] in Blood [facility] Platelets [#/volume] in Blood [facility] Platelets [#/volume] in Blood [facility] Platelets [#/volume] in Blood [facility] Polysomnography [facility] Polysomnography [facility] Potassium [Moles/vol ume] in Serum or Plasma [facility] Work Phone: Potassium [Moles/vol ume] in Serum or Plasma [facility] Potassium [Moles/vol ume] in Serum or Plasma [facility] Potassium [Moles/vol ume] in Serum or Plasma [facility] Potassium [Moles/vol ume] in Serum or Plasma [facility] Potassium [Moles/vol ume] in Serum or Plasma [facility] Potassium measurement [facility] Prothrombin time [facility] Work Phone: Red blood cell count [facility] Work Phone: Red blood cell count [facility] Red blood cell count [facility] Red blood cell count [facility] Red blood cell count [facility] Red blood cell count [facility] Red cell distributio n width determination [facility] Work Phone: Red cell distributio n width determination [facility] Red cell distributio n width determination [facility] Red cell distributio n width determination [facility] Red cell distributio n width determination [facility] Red cell distributio n width determination [facility] Serum chloride measurement [facility] Serum inorganic phos phate measurement [facility] Sodium [Moles/volume ] in Serum or Plasma [facility] Work Phone: Sodium [Moles/volume ] in Serum or Plasma [facility] Sodium [Moles/volume ] in Serum or Plasma [facility] Sodium [Moles/volume ] in Serum or Plasma [facility] Sodium [Moles/volume ] in Serum or Plasma [facility] Sodium [Moles/volume ] in Serum or Plasma [facility] Sodium measurement [facility] Specific gravity of Urine [facility] T4 free measurement [facility] Work Phone: Total protein measurement [facility] Work Phone: Total protein measurement [facility] Total protein measurement [facility] Triglycerides measurement [facility] Work Phone: Troponin I measurement [facility] Work Phone: Urea nitrogen [Mass/volume] in Serum or Plasma [facility] Work Phone: Urea nitrogen [Mass/volume] in Serum or Plasma [facility] Urea nitrogen [Mass/volume] in Serum or Plasma [facility] Urea nitrogen [Mass/volume] in Serum or Plasma [facility] Urea nitrogen [Mass/volume] in Serum or Plasma [facility] Urea nitrogen [Mass/volume] in Serum or Plasma [facility] Urea nitrogen [Mass/volume] in Serum or Plasma [facility] Urinalysis, blood, qualitative [facility] Urine dipstick for glucose [facility] Urine dipstick for leukocyte esterase [facility] Urine dipstick for nitrite [facility] Urine dipstick for protein [facility] Urine examination [facility] Urine microscopy: epithelial cells [facility] Urine Microscopy: wh ite cells [facility] Urobilinogen [Presen ce] in Urine [facility] US Carotid arteries [facility] Work Phone: US Heart [facility] Work Phone: VLDL cholesterol measurement [facility] Work Phone: [facility] Immunizations Immunization Date Immunization Notes Care Provider Kimani brooks 11-22-2023 influenza, injectabl e, quadrivalent, preservative free Dr. Jarred Lopez Work Phone: [facility] 11-22-2023 influenza virus vaccine, unspecified formulation Irena Wild [facility] 04-07-2023 pneumococcal (PCV20) vaccine, 20 valent (PREVNAR 20) Dwayne Lopez MD Work Phone: [facility] 04-07-2023 pneumococcal Conjuga te, unspecified formulation Dwayne Lopez MD Work Phone: [facility] Work Phone: 06-09-2021 tetanus toxoid, redu juan c diphtheria toxoid, and acellular pertussis vaccine, adsorbed [facility] 02-18-2021 Covid (Pfizer) [facility] 01-29-2021 Covid (Pfizer) [facility] 09-18-2019 influenza, injectabl e, quadrivalent, contains preservative Shital Patel [facility] 09-18-2019 influenza virus vaccine, unspecified formulation Irena Hood [facility] 08-17-2019 influenza, injectabl e, quadrivalent, preservative free Shital Patel [facility] 07-04-2018 influenza, injectabl e, quadrivalent, preservative free Shital Patel [facility] 07-04-2018 pneumococcal polysaccharide vaccine, 23 valent Shital Patel [place] [facility] 09-07-2013 influenza, injectable,quadrivalent , preservative free, pediatric [facility] 09-07-2013 influenza, seasonal, injectable, preservative free Shital Patel MA [facility] 11-23-2012 pneumococcal polysaccharide vaccine, 23 valent Shital Patel [facility] 11-23-2012 Pneumococcal Vaccine [facility] Work Phone: 11-23-2012 pneumococcal vaccine , unspecified formulation Dr. Ganesh Garcia Work Phone: [facility] 08-14-2010 influenza, seasonal, injectable Angelika De La Torre [facility] Work Phone: 03-10-2010 influenza, seasonal, injectable; Translations: [Follow Up Appt 2 weeks] Angelika De La Torre [facility] Work Phone: 09-11-2009 novel [id number], preservative-free, injectable Shital Patel MA [facility] 10-10-2008 pneumococcal polysaccharide vaccine, 23 valent Shital Patel MA [facility] 08-25-2008 influenza virus vaccine, unspecified formulation Shital Patel [facility] Work Phone: 04-24-2006 tetanus and diphther ia toxoids, adsorbed, preservative free, for adult use (2 Lf of tetanus toxoid and 2 Lf of diphtheria toxoid) Shital Patel [facility] Work Phone: Payers Date Payer Category Payer Unknown [id number] 2024 Medicaid [id number] 2024 Private Health Insurance [id number] 2024 Self-pay [id number] 2022 Medicare (Managed Care) VINH DICKENS HMO [id number] 2022 Unknown VINH HANKS CR[employer] S [employer] ANTHANEESH MEDIBLUE O [id number] 2022-Present [phone] [address] [place] [address] [facility] [id number]. [id number] 2022 Unknown [id number] [id number]. [id number] 2014 Medicaid [id number] Medicare [id number] Medicare [id number] Unknown [id number] 2.16.840.1.166134.3.579.2. 273 Unknown [id number] 2.16.840.1.218669.3.579.2. 273 Unknown [id number] 2.16.840.1.156967.3.579.2. 273 Unknown [id number] 2.16.840.1.266792.3.579.2. 273 Unknown [id number] 2.840.1.184685.3.579.2. 273 Unknown [id number] 2.840.1.364299.3.579.2. 462 Unknown [id number] 2.840.1.400751.3.579.2. 462 Unknown [id number] 2.840.1.744074.3.579.2. 462 Unknown [id number] 2.840.1.544604.3.579.2. 462 Unknown [id number] 2.840.1.253302.3.579.2. 462 Unknown [id number] 2.840.1.218869.3.579.2. 462 Unknown [id number] 2.840.1.284249.3.579.2. 462 Unknown [id number] 2.840.1.063677.3.579.2. 462 Unknown [id number] 2.840.1.562040.3.579.2. 462 Unknown [id number] 2.840.1.501526.3.579.2. 462 Unknown [id number] 2.840.1.304952.3.579.2. 462 Unknown [id number] 2.840.1.380324.3.579.2. 462 Unknown [id number] 2.16.840.1.709343.3.579.2. 462 Unknown [id number] 2.840.1.340093.3.579.2. 462 Unknown [id number] 2.16.840.1.997358.3.579.2. 462 Unknown [id number] 2.16.840.1.538022.3.579.2. 462 Unknown [id number] 2.16.840.1.987436.3.579.2. 462 Unknown [id number] 2.16.840.1.334157.3.579.2. 462 Unknown [id number] 2.16.840.1.637231.3.579.2. 462 Unknown [id number] 2.16.840.1.328160.3.579.2. 462 Unknown [id number] 2.16.840.1.290282.3.579.2. 462 Unknown [id number] 2.16.840.1.669113.3.579.2. 462 Unknown [id number] 2.16.840.1.730038.3.579.2. 462 Unknown [id number] 2.16.840.1.161276.3.579.2. 462 Unknown [id number] 2.16.840.1.942988.3.579.2. 462 Unknown [id number] 2.16.840.1.197571.3.579.2. 462 Unknown [id number] 2.16.840.1.514076.3.579.2. 462 Unknown [id number] 2.16.840.1.920616.3.579.2. 462 Unknown [id number] 2.16.840.1.349561.3.579.2. 462 Unknown [id number] 2.16.840.1.818529.3.579.2. 462 Unknown [id number] 2.16.840.1.537888.3.579.2. 462 Unknown [id number] 2.16.840.1.534605.3.579.2. 462 Unknown [id number] 2.16.840.1.080678.3.579.2. 462 Unknown [id number] 2.16.840.1.647756.3.579.2. 462 Unknown [id number] 2.16.840.1.438238.3.579.2. 462 Unknown [id number] 2.16.840.1.884195.3.579.2. 462 Unknown [id number] 2.16840.1.317667.3.579.2. 462 Unknown [id number] 2.16840.1.148946.3.579.2. 462 Unknown [id number] 2.840.1.220082.3.579.2. 462 Unknown [id number] 2.16840.1.884757.3.579.2. 462 Unknown [id number] 2.840.1.054455.3.579.2. 462 Unknown [id number] 2.840.1.769407.3.579.2. 462 Unknown [id number] 2.840.1.064925.3.579.2. 462 Unknown [id number] 2.16840.1.801425.3.579.2. 462 Unknown [id number] 2.16840.1.468104.3.579.2. 462 Unknown [id number] 2.16840.1.835843.3.579.2. 462 Unknown [id number] 2.16840.1.736337.3.579.2. 462 Unknown [id number] 2.16840.1.907561.3.579.2. 462 Unknown [id number] 2.16840.1.171451.3.579.2. 462 Unknown [id number] 2.16.840.1.827501.3.579.2. 462 Unknown [id number] 2.16840.1.448348.3.579.2. 462 Unknown [id number] 2.16.840.1.798068.3.579.2. 462 Unknown [id number] 2.16.840.1.783969.3.579.2. 462 Unknown [id number] 2.16.840.1.128329.3.579.2. 462 Unknown [id number] 2.16.840.1.064089.3.579.2. 462 Unknown [id number] 2.16.840.1.623272.3.579.2. 462 Unknown [id number] 2.16.840.1.895765.3.579.2. 462 Unknown [id number] 2.16.840.1.245680.3.579.2. 462 Unknown [id number] 2.16.840.1.250014.3.579.2. 462 Unknown [id number] 2.16.840.1.609292.3.579.2. 462 Unknown [id number] 2.16.840.1.740909.3.579.2. 462 Unknown [id number] 2.16.840.1.717758.3.579.2. 462 Unknown [id number] 2.16.840.1.552649.3.579.2. 462 Unknown [id number] 2.16.840.1.387116.3.579.2. 462 Unknown [id number] 2.16.840.1.337632.3.579.2. 462 Unknown [id number] 2.16.840.1.758825.3.579.2. 462 Unknown [id number] 2.16.840.1.202528.3.579.2. 462 Unknown [id number] 2.16.840.1.533014.3.579.2. 462 Unknown [id number] 2.16.840.1.555065.3.579.2. 462 Unknown [id number] 2.16.840.1.854844.3.579.2. 462 Unknown [id number] 2.16840.1.914307.3.579.2. 462 Unknown [id number] 2.16840.1.219257.3.579.2. 462 Unknown [id number] 2.16840.1.139145.3.579.2. 462 Unknown [id number] 2.0.1.640425.3.579.2. 462 Unknown [id number] 2.0.1.705155.3.579.2. 462 Social History Date Type Detail Facility Start: 01-13-2022 End: 01-20-2024 Tobacco smoking status [facility] Unknown if ever smoked [facility] Start: 04-08-[address] [facility] Start: 12-12-[address] [facility] Start: 02-28-[address] [facility] Start: 02-28-[address] [facility] Start: 1965 Sex Assigned At Female [facility] Start: 10-21-2020 End: 08-10-2025 Tobacco smoking status [facility] Ex-smoker [facility] Start: 06-25-1977 End: 10-07-2020 History of tobacco use Current smoker [facility] Start: 06-25-1977 End: 10-07-2020 History of tobacco use Cigarette Smoker [facility] Start: 10-21-2020 End: 11-19-2022 Cigarettes smoked current (pack per day) - Reported 0.[address] [facility] Start: 10-21-2020 End: 03-24-2023 Tobacco use and exposure Smokeless tobacco non-user [facility] Start: 10-31-2021 End: 08-10-2023 Alcohol intake Current non-drinker of alcohol (finding) [facility] Start: 05-27-2015 History SDOH Alcohol Comment Seldom- twice yearly [facility] Start: 1965 Sex Assigned At Not on file C [facility] Start: 11-19-2022 End: 04-23-2023 Tobacco use panel [facility] National Score (1-10 0), lower number is lower risk [address] [facility] Start: 01-22-2025 End: 01-26-2025 Sex Female (finding) [facility] Medical Equipment Procedure Code Equipment Code Equipment Origin al Text Equipment Identifier Dates TEST STRIPS TEST STRIPS [id number] Start: 08-14-2010 LANCET LANCET [id number] Start: 08-14-2010 INSULIN PEN NEEDLE [id number] Start: 08-14-2010 Comment on above: Test blood [...] Yes. Pt uses Freestyle Lite Insulinx Meter [id number] Start: 12-26-2019 use to test bloo d sugar THREE TIMES DAILY [id number] Start: 12-26-2019 Use one needle f or each dose. four/day. [id number] Start: 09-18-2019 Test blood sugar(s) 3 times daily. Dx: Type 2 DM - Uncontrolled E11.65 Insulin: Yes [id number] Start: 05-07-2016 Pen Needle,Diabetic, Disp Unit 29 [...] 06-01-2025 Functional status With Assist of [address] [facility] Work Phone: 05-31-2025 Functional status Ambulates;Beds giuseppe Commode;Back to bed [facility] Work Phone: 05-28-2025 Functional status Activity Abili ty With Assist of 2 [facility] Work Phone: 01-05-[address] [facility] Work Phone: 01-03-2024 Functional status Bedside [facility] Work Phone: 11-24-[address] [facility] Work Phone: 05-21-2022 Functional status Ambulates;Beds giuseppe [facility] Work Phone: 04-25-[address] [facility] Work Phone: 04-25-[address] [facility] Work Phone: 03-30-2022 Functional status Ambulates;Laurent r;Bedside Commode [facility] Work Phone: 03-20-2022 Functional status Activity Abili ty Unable to Assess [facility] Work Phone: 05-27-2015 Are you deaf, or do you have serious difficulty hearing No 05/27/2015 2:20 PM EDT Faith Charles RN No [facility] Work Phone: 05-27-2015 Are you blind, or do you have serious difficulty seeing, even when wearing glasses No 05/27/2015 2:20 PM EDFaith Aguillon RN No [facility] 05-27-2015 Do you have serious difficulty walking or climbing stairs No 05/27/2015 2:20 PM EDFaith Aguillon RN No [facility] 05-27-2015 Do you have difficul ty dressing or bathing No 05/27/2015 2:20 PM Faith Vogel RN No [facility] 05-27-2015 Because of a physica l, mental, or emotional condition, do you have difficulty doing errands alone such as visiting a physician's office or shopping No 05/27/2015 2:20 PM Faith Vogel RN No [facility] Mental Status Date Assessment Result Facility 06-01-2025 Cognitive function Voice/Name [facility] Work Phone: 05-28-2025 Cognitive function Voice/Name [facility] Work Phone: 05-26-2025 Cognitive function Awake;Alert;A ppropriate;Fol lows Commands [facility] Work Phone: 01-22-2025 Cognitive function Awake;Alert;A ppropriate;Fol lows Commands [facility] Work Phone: 01-20-2024 Cognitive function Awake;Alert;A ppropriate;Fol lows Commands [facility] Work Phone: 01-05-2024 Cognitive function Voice/Name [facility] Work Phone: 01-03-2024 Cognitive function Voice/Name [facility] Work Phone: 01-01-2024 Cognitive function Voice/Name [facility] Work Phone: 11-24-2023 Cognitive function Voice/Name [facility] Work Phone: 11-19-2023 Cognitive function Level Of Cons ciousness Awake;Alert;Appropriate;Fol lows Commands [facility] Work Phone: 06-06-2023 Cognitive function Level Of Cons ciousness Awake;Alert;Appropriate;Fol lows Commands [facility] Work Phone: 01-29-2023 Cognitive function Awake;Alert;A ppropriate;Fol lows Commands [facility] Work Phone: 11-05-2022 Cognitive function Voice/Name [facility] Work Phone: 08-24-2022 Cognitive function Voice/Name [facility] Work Phone: 05-21-2022 Cognitive function Voice/Name [facility] Work Phone: 05-20-2022 Cognitive function Level Of Cons ciousness Awake;Alert;Appropriate;Fol lows Commands [facility] Work Phone: 05-03-2022 Cognitive function Awake;Alert;A ppropriate;[facility] lows Commands [facility] Work Phone: 04-25-2022 Cognitive function Voice/Name [facility] Work Phone: 03-30-2022 Cognitive function Comprehension Ability Demonstrates ability to follow instructions/comprehend [facility] Work Phone: 03-30-2022 Cognitive function Level Of Cons ciousness Awake;Alert [facility] Work Phone: 03-29-2022 Cognitive function Voice/Name [facility] Work Phone: 03-20-2022 Cognitive function Voice/Name [facility] Work Phone: 02-24-2022 Cognitive function Voice/Name [facility] Work Phone: 01-13-2022 Cognitive function Level Of Cons ciousness Awake;Alert;Appropriate;Fol lows Commands [facility] Work Phone: 05-27-2015 Because of a physica l, mental, or emotional condition, do you have serious difficulty concentrating, remembering, or making decisions No 05/27/2015 2:20 PM Faith Vogel RN No [facility] Clinical Notes 07-23-2015 to 09-04-2025 Note Date & Type Note Facility 09-04-2025 Note HNO ID: [id number] Author: DEBRA GAVIN MA Service: ? Author Type: Home Care Aide Type: Progress Notes Filed: 09/04/2025 09:15 Note Text: POPULATION HEALTH NAVIGATION OUTREACH Action/FYI [employer] Deep Dive- A1C Chart reviewed No results found Outside PCP Contacted for insurance attribution No answer Mailbox is full Reason for Outreach Care Gap/HCC or Scheduling Wellness Visits Care Gaps due: HBA1C Patient Contacted: Unable or unnecessary to reach patient: Unable to leave messageAttribution Options:[id number]} Navigation Signature: Debra Gavin MA September 04, 2025 9:13 AM [facility] 09-04-2025 Note Patient Outreach (NE TNAV) TERRANCE BRAR ([id number]) 1965 F Date Time Provider Department 09/04/25 DEBRA GAVIN During your visit today, we recorded the following information about you: Debra Gavin MA 09/04/2025 9:15 AM Signed POPULATION HEALTH NAVIGATION OUTREACH Action/FYI [employer] Deep [employer]ive- A1C Chart reviewed No results found Outside PCP Contacted for insurance attribution No answer Mailbox is full Reason for Outreach Care Gap/HCC or Scheduling Wellness Visits Care Gaps due: HBA1C Patient Contacted: Unable or unnecessary to reach patient: Unable to leave messageAttribution Options:[id number]} Navigation Signature: Debra Gavin MA September 04, 2025 9:13 AM Allergies As of Date: 09/04/2025 Noted Allergy Reaction CELEBREX (CELECOXIB) 12/26/2019 2 [...] Population Health Navigation Outreach [3910] Cmt: Nikki Heart- A1C Prescriptions as of 09/04/2025 - dulaglutide (TRULICITY) 3 mg/0.5 mL pen [...] blood sugar THREE TIMES DAILY - Insulin Exmore, Disposable, (BD ULTRA-FINE BEN PEN NEEDLE) 32 gauge x 5/32" ndle Use one needle for each dose. four/day. - aspirin 81 mg chewable tablet DAILY@0800 - Lancets lancets Test blood sugar(s) 3 times daily. Dx: Type 2 DM - Uncontrolled E11.65 Insulin: Yes Problem List As Of Date 09/04/2025 Noted Resolved Depressive disorder, not elsewhere classified [...] Injury of kidney [S37.009A] 11/21/2018 Class 1 obes (more content not included)... [facility] 06-01-2025 Discharge summary Note Date/Time June 01, 2025 12:20pm [facility] Medical Records Department [address] [place] [address] Discharge Summary 06/01/25 1217 MR#: [id number] Acct: [id number] Name: TERRANCE BRAR Rep #:[id number] : 1965 59 From: John Shaw MD PCP: Dr. Lizet Linares MD Status:A DM IN Location: MS3 AF485-6 Providers Date of Admission: 05/28/25 Date of Discharge: 06/01/25 Primary Care Physician: Dr. Lizet Linares MD Consultations 05/29/25 08:22 Consult: Infectious Disease Routine Consulting Provider: Juan Chiang Reason for Consult: Right upper lip cellulitis failed outpatient treatment EMERGENT Consult: No Notified: Yes Date Notified: 05/29/25 Time Notified: 08:22 Method of Notification: Text 05/30/25 14:24 Consult: General Surgery Routine Consulting Provider: Juan Whatley Reason for Consult: Right upper lip abscess requiring I&D EMERGENT Consult: No Notified: Yes Date Notified: 05/30/25 Time Notified: [...] antibiotics ? Admit under inpatient status to [facility]. Presentation consistent with cellulitis secondary to lip [...] Chronic debility ? Patient is at an [facility] 4. Class II obesity with BMI of [...] Requested for PT OT eval and social service agency director to assist with discharge planning Time spent [...] % (Auto) 53.5, Lymph % (Auto) 35.9, Webster % (Auto) 5.5, Eos % (Auto) 2.7, [...] in before D/C Order can be placed): Intermediate Facility Charges/Coding Visit Charges Inpatient E&M: 20712 Disch Hosp >30min 06/01/25 1220 <Electronically signed by John Shaw MD> Cosigner Signature (if applicable): CC: Dr. John Shaw MD; Dr. Lizet Linares MD~ Signed [facility] Work Phone: 1(802) 709-678308-08-2025 Discharge summary Author John Shaw [facility] Note Date/Time June 01, 2025 12: 16pm [facility] Medical Records Department [address] [place] [address] Transfer to Extended Care MR#: [id number] Acct: [id number] Name: TERRANCE BRAR Rep #:[id number] : 1965 59 From: John Shaw MD PCP: Dr. Lizet Linares MD Status:A DM IN Certification of patient admission REQUIRED AT TIME OF ADMISSION. I CERTIFY THAT POST-HOSPITAL ECF SERVICES ARE REQUIRED TO BE GIVEN ON AN IN-PATIENT BASIS BECAUSE OF THE ABOVE NAMED PATIENT'S NEED FOR INTERMEDIATE CARE ON A CONTINUING BASIS FOR THE CONDITION(S) FOR WHICH HE/SHE WAS RECEIVING IN-PATIENT HOSPITAL SERVICES PRIOR TO HIS/HER TRANSFER TO THE F. 06/01/25 1216<Electronically signed by John Shaw MD> [...] antibiotics ? Admit under inpatient status to [facility]. Presentation consistent with cellulitis secondary to lip [...] Requested for PT OT eval and social service agency director to assist with discharge planning Time spent [...] in before D/C Order can be placed): Intermediate Facility 06/01/25 1216 <Electronically signed by John Shaw MD> Cosigner Signature (if applicable): CC: Dr. Chavez Alcala DO; Dr. Lizet Linares MD; Dr. Juan Chiang MD; Dr. Juan Whatley MD ~ [facility] Work Phone: 1(371) 289-801308-08-2025 Hospital Discharge instructionsAdditional Instructions [facility]: [facility] 1(652) 592-700708-08-2025 Progress note Author Juan [facility] Note Date/Time June 01, 2025 10: 19am [facility] Medical Records Department [address] [place] [address] Progress Note - Infect Disease 06/01/25 1017 MR#: [id number] Acct: [id number] Name: TERRANCE BRAR Rep #:[id number] : 1965 59 From: Juan butler MD PCP: Dr. Lizet Linares MD Status:A DM IN [facility] Physical Exam Narrative Feeling better, some nausea. [...] Cosigner Signature (if applicable): CC: ~ Signed [facility] Work Phone: 1(782) 233-585908-08-2025 Progress note Author Jonh Shaw [facility] Note Date/Time June 01, 2025 8:3 8am [facility] Medical Records Department [address] [place] [address] Progress Note - Hospitalist 06/01/2515 MR#: [id number] Acct: [id number] Name: TERRANCE BRAR Rep #:[id number] : 1965 59 From: John Shaw MD PCP: Dr. Lizet Linares MD Status:A DM IN Location: [place] 059995-1 Reason for Visit Chief Complaint: Worsening upper [...] % (Auto) 52.9, Lymph % (Auto) 34.8, Webster % (Auto) 7.6, Eos % (Auto) 2.5, [...] antibiotics ? Admit under inpatient status to [facility]. Presentation consistent with cellulitis secondary to lip [...] Chronic debility ? Patient is at an [facility] 4. Class II obesity with BMI of [...] Requested for PT OT eval and social service agency director to assist with discharge planning Time spent in the patient's overall evaluation,decision-making process, review of diagnostic data, adjustment of management, discussion with other providers, nursing nursing and ancillary staff involved in patient's care documentation, 35 Minutes Charges/Coding Visit Charges Inpatient E&M: 82166 Subs Hosp L2 06/01/25 0838 <Electronically signed by John Shaw MD> Cosigner Signature (if applicable): CC: ~ Signed [facility] Work Phone: 1([phone]) 848-605008-08-2025 Progress note Author Juan Whatley [facility] Note Date/Time June 01, 2025 8:2 4am [facility] Medical Records Department [address] [place] [address] Progress Note - Surgery 06/01/25 0800 MR#: [id number] Acct: [id number] Name: TERRANCE BRAR Rep #:[id number] : 1965 59 From: Juan Whatley MD PCP: Dr. Lizet Linares MD Status:A DM IN Location: [place] 059995-1 Subjective Subjective Doing well. Reports improved pain. [...] hr 05/31/25 08:09: POC Glucose 202 H 05/31/25 [...] week in clinic Charges/Coding Procedures Integumentary 111xxx-113xx: 63531 Global Visit 06/01/25 0824 <Electronically signed by Juan Whatley MD> Cosigner Signature (if applicable): CC: ~ Signed [facility] Work Phone: 1([phone]) 501-469108-07-2025 Progress note [facility] Note Date/Time May 31, 2025 10: 58am [facility] Medical Records Department [address] [place] [address] Progress Note - Infect Disease 05/31/25 1057 MR#: [id number] Acct: [id number] Name: TERRANCE BRAR Rep #:[id number] : 1965 59 From: Juan butler MD PCP: Dr. Lizet Linares MD Status:A DM IN Location: MS3 ZR362-7 Physical Exam Narrative Some nausea, but overall [...] Cosigner Signature (if applicable): CC: ~ Signed [facility] Work Phone: [phone]) 442-480708-07-2025 Progress note Author John Shaw [facility] Note Date/Time May 31, 2025 9:1 4am [facility] Medical Records Department [address] [place] [address] Progress Note - Hospitalist 05/31/25 0654 MR#: [id number] Acct: [id number] Name: TERRANCE BRAR Rep #:[id number] : 1965 59 From: John Shaw MD PCP: Dr. Lizet Linares MD Status:A DM IN Location: CO3 PL533-7 Reason for Visit Chief Complaint: Worsening upper [...] % (Auto) 55.0, Lymph % (Auto) 32.4, Webster % (Auto) 8.1, Eos % (Auto) 2.5, [...] antibiotics ? Admit under inpatient status to [facility]. Presentation consistent with cellulitis secondary to lip [...] Requested for PT OT eval and social service agency director to assist with discharge planning Time spent in the patient's overall evaluation,decision-making process, review of diagnostic data, adjustment of management, discussion with other providers, nursing nursing and ancillary staff involved in patient's care documentation, 38 Minutes Charges/Coding Visit Charges Inpatient E&M: 25417 Subs Hosp L2 05/31/2514 <Electronically signed by John Shaw MD> Cosigner Signature (if applicable): CC: ~ Signed [facility] Work Phone: 1([phone]) 336-173108-07-2025 Progress note Author Juan Whatley [facility] Note Date/Time May 31, 2025 9:0 3am [facility] Medical Records Department [address] [place] [address] Progress Note - Surgery 05/31/25 0836 MR#: [id number] Acct: [id number] Name: TERRANCE BRAR Rep #:[id number] : 1965 59 From: Juan Whatley MD PCP: Dr. Lizet Linares MD Status:A DM IN Location: MS3 VP156-6 Subjective Subjective Pain improved today. No drainage [...] % (Auto) 52.9, Lymph % (Auto) 34.8, Webster % (Auto) 7.6, Eos % (Auto) 2.5, [...] from [facility] standpoint) Charges/Coding Procedures Integumentary 111xxx-113xx: 92950 Global Visit 05/31/25 0903 <Electronically signed by Juan Whatley MD> Cosigner Signature (if applicable): CC: ~ Signed [facility] Work Phone: [phone] 290-451808-06-2025 Consult note Author Juan Whatley [facility] Note Date/Time May 30, 2025 5:0 3pm [facility] Medical Records Department [address] [place] [address] Consultation - Surgical 05/30/25 1655 MR#: [id number] Acct: [id number] Name: TERRANCE BRAR Rep #:[id number] : 1965 59 From: Juan Whatley MD PCP: Dr. Lizet Linares MD Status:A DM IN Location: MS3 TN688-9 Assessment & Plan Assessment/Plan (1) History of [...] has hypothyroidism and stage III kidney disease [facility] Medical History MRSA (methicillin resistant staph aureus) [...] for therapy for chronic back pain housing: [facility] Smoking Status: Former smoker Tobacco: How many [...] % (Auto) 55.0, Lymph % (Auto) 32.4, Webster % (Auto) 8.1, Eos % (Auto) 2.5, [...] Multi Select Codes Visit Charges Office Visit/Consults: 50761 IP Consult L3 05/30/25 1703 <Electronically signed by Juan Whatley MD> Cosigner Signature (if applicable): CC: Dr. Lizet Linares MD~ Signed [facility] Work Phone: [phone]) [phone] Procedure [facility] 05-30-2025 Progress note Author [facility] Note Date/Time May 30, 2025 1:3 3pm [facility] Medical Records Department [address] [place] [address] Progress Note - Infect Disease 05/30/25 1332 MR#: [id number] Acct: [id number] Name: TERRANCE BRAR Rep #:[id number] : 1965 59 From: Juan butler MD PCP: Dr. Lizet Linares MD Status:A DM IN Location: CO3 AH607-2 Physical Exam Narrative Not feeling any better, [...] Cosigner Signature (if applicable): CC: ~ Signed [facility] Work Phone: [phone] 218-821908-06-2025 Consult note Author Clem Carnes [facility] Note Date/Time May 30, 2025 1:0 8pm [facility] Medical Records Department [address] [place] [address] Pharmacokinetic/Renal -Consult 05/29/25 1101 MR#: [id number] Acct: [id number] Name: TERRANCE BRAR Rep #:[id number] : 1965 59 From: Clem Carnes PCP: Dr. Lizet Linares MD Status:A DM IN Y Location: [place] [address] Consult Antibiotic Management Pharmacy has been consulted [...] 1030 05/29/25 1102 <Electronically signed by Clem butler> Date _ Clem Carnes 05/30/25 1308 <Electronically signed by Juan nuno MD> Cosigner Signature (if applicable): Date Juan Chiang MD CC: ~ Signed [facility] Work Phone: [phone] Consult note Author Joao Marie [facility] Note Date/Time May 30, 2025 1:0 8pm [facility] Medical Records Department [address] [place] [address] Pharmacokinetic/Renal -Consult 05/30/25 1102 MR#: [id number] Acct: [id number] Name: TERRANCE BRAR Rep #:[id number] : 1965 59 From: Joao live PCP: Dr. Lizet Linares MD Status:A DM IN Y Location: [facility] HM754-4 Consult Antibiotic Management Pharmacy has been consulted [...] Date Juan Chiang MD CC: ~ Signed [facility] Work Phone: 1([phone]) 287-413008-06-2025 Progress note Author John Shaw [facility] Note Date/Time May 30, 2025 7:4 2am [facility] Medical Records Department [address] [place] [address] Progress Note - Hospitalist 05/30/25 0735 MR#: [id number] Acct: [id number] Name: TERRANCE BRAR Rep #:[id number] : 1965 59 From: John Shaw MD PCP: Dr. Lizet Linares MD Status:A DM IN Location: MS3 TH610-4 Reason for Visit Chief Complaint: Worsening upper [...] % (Auto) 55.0, Lymph % (Auto) 32.4, Webster % (Auto) 8.1, Eos % (Auto) 2.5, [...] antibiotics ? Admit under inpatient status to [facility]. Presentation consistent with cellulitis secondary to lip [...] 35 Minutes Charges/Coding Visit Charges Inpatient E&M: 17385 Subs Hosp L2 05/30/25 0742 <Electronically signed by John Shaw MD> Cosigner Signature (if applicable): CC: ~ Signed [facility] Work Phone: 1(456) 700-249808-05-2025 Consult note Author Juan Chiang [facility] Note Date/Time May 29, 2025 10: 40am [facility] Medical Records Department [address] [place] [address] Consultation - Infectious Dx 05/29/25 1037 MR#: [id number] Acct: [id number] Name: TERRANCE BRAR Rep #:[id number] : 1965 59 From: Juan butler MD PCP: Dr. Lizet Linares MD Status:A DM IN Location: [facility] WN174-2 Assessment & Plan Assessment/Plan (1) Infected lip [...] performed and neg except as noted above. [facility] Medical History MRSA (methicillin resistant staph aureus) [...] for therapy for chronic back pain housing: [facility] Smoking Status: Former smoker Tobacco: How many [...] applicable): CC: Dr. Lizet Linares MD~ Signed [facility] Work Phone: [phone]) 373-521608-05-2025 Progress note Author John Shaw [facility] Note Date/Time May 29, 2025 8:2 0am [facility] Medical Records Department [address] [place] [address] Progress Note - Hospitalist 05/29/25805 MR#: [id number] Acct: [id number] Name: TERRANCE BRAR Rep #:[id number] : 1965 59 From: John Shaw MD PCP: Dr. Lizet Linares MD Status:A DM IN Location: MS3 IH779-9 Reason for Visit Chief Complaint: Worsening upper [...] % (Auto) 61.7, Lymph % (Auto) 27.3, Webster % (Auto) 8.7, Eos % (Auto) 1.3, [...] antibiotics ? Admit under inpatient status to [facility]. Presentation consistent with cellulitis secondary to lip [...] 36 Minutes Charges/Coding Visit Charges Inpatient E&M: 67440 Subs Hosp L2 05/29/25 0820 <Electronically signed by John Shaw MD> Cosigner Signature (if applicable): CC: ~ Signed [facility] Work Phone: [phone]) [phone] Discharge summary Author Delores Moya [facility] Note Date/Time May 28, 2025 4:5 1pm [facility] Medical Records Department [address] [place] [address] Emergency Department Summary 05/28/25 MR#: [id number] Acct: [id number] Name: TERRANCE BRAR Rep #:[id number] : 1965 59 From: Delores Moya MD PCP: Dr. Lizet Linares MD Status:A DM IN Location: [place] [address] HPI History of Present Illness Chief Complaint: [...] as prescribed. She was seen by an [employer] today and was referred here to the ED for further evaluation. Denies chest pain, shortness ofbreath, abdominal pain, nausea or vomiting. [facility] Medical History MRSA (methicillin resistant staph aureus) [...] for therapy for chronic back pain housing: [facility] Smoking Status: Former smoker Tobacco: How many [...] % (Auto) 61.7 Lymph % (Auto) 27.3 Webster % (Auto) 8.7 Eos % (Auto) 1.3 [...] Discharge Plan Disposition Disposition: Acute Care Hospital [facility] Discharge Date/Time: 05/28/25 13:26 What to do if you have Problems For any increased pain, shortness of breath, bleeding, nausea or vomiting, chestpain, or any unexpected problems, contact your Primary Care Provider. Call [facility] ([phone]) or report to the closest Emergency Room. Call 911 if necessary. 05/28/25 165 <Electronically signed by Delores Moya MD> Cosigner Signature (if applicable): CC: Dr. Lizet Linares MD ~ Signed [facility] Work Phone: 1([phone]) 105-310708-04-2025 History and physical note Author Chavez Alcala [facility] Note Date/Time May 28, 2025 12: 16pm [facility] Medical Records Department [address] [place] [address] [place] [address] H&P Exam - Hospitalist 05/28/25 1134 MR#: [id number] Acct: [id number] Name: TERRANCE BRAR Rep #:[id number] : 1965 59 From: Chavez mayo DO PCP: Dr. Lizet Linares MD Status:A DM IN Location: CO3 YP132-3 HPI - General General Date of Admission: 05/28/25 Date of Service: 05/28/25 Chief Complaint: Worsening upper lip wound with surrounding cellulitis HPI Narrative TERRANCE BRAR, is a 59 F who presented to [facility] ED on 05/28/25 with worsening upper lip wound with surrounding cellulitis. Patient lives at [facility]. She initially came to the ED on [...] discomfort. Will be admitted for further management. [facility] Medical History MRSA (methicillin resistant staph aureus) [...] for therapy for chronic back pain housing: [facility] Smoking Status: Former smoker Tobacco: How many [...] % (Auto) 61.7, Lymph % (Auto) 27.3, Webster % (Auto) 8.7, Eos % (Auto) 1.3, [...] is a 59-year-old female who presented to [facility] ED on 05/28/2025 with worsening upper lip swelling with cellulitis and failed outpatient antibiotics. 1. Right upper lip swelling with cellulitis and failed outpatient antibiotics ? Admit under inpatient status to [facility]. Presentation consistent with cellulitis secondary to lip [...] 3. Chronic debility ? Has lived at [facility] for the past 1.5 years. Will plan [...] Full code, verified Expected disposition: Back to [facility], 2 to 3 days Total clinical time spent by myself addressing the patient's medical issues, reviewing all the data, and collaborating with patient's care team: 75 minutes. Charges/Coding Visit Charges Inpatient E&M: 63237 Init Hosp L3 05/28/25 1216 <Electronically signed by Chavez Alcala DO> Cosigner Signature (if applicable): CC: Dr. Chavez Alcala DO; Dr. Lizet Linares MD~ Signed [facility] Work Phone: [phone]) 240-407108-04-2025 Evaluation note* Diagnosis Onset Date Resolution Status Admit Date Abscess of lip acute May 11:34am History of diabetes mellitus acute May 28, 2025 11:34am Infected lip laceration acute A ugust 2024 11:34am [facility] Work Phone: 1(750) 700-373108-04-2025 Evaluation note* Diagnosis Onset Date Resolution Status Admit Date Abscess of lip resolved May 11:34am History of diabetes mellitus inactiv e May 28, 2025 11:34am Infected lip laceration inactive A ugust 2024 11:34am [place] [employer] Work Phone: [phone]) [phone] Evaluation note* Diagnosis Onset Date Resolution Status Admit Date Abscess of lip resolved May 11:34am History of diabetes mellitus inactiv e May 28, 2025 11:34am Infected lip laceration inactive A ugust 2024 11:34am Abscess of lip resolved May 9:32am [place] [employer] Work Phone: 1([phone]) 494-692108-04-2025 Evaluation note* Diagnosis Onset Date Resolution Status Admit Date Abscess of lip resolved May 11:34am History of diabetes mellitus inactiv e May 28, 2025 11:34am Infected lip laceration inactive A ugust 2024 11:34am Abscess of lip resolved May h2024 9:32am Abscess of lip resolved June 15n d, 2024 1:35pm [place] [employer] Work Phone: [phone] Evaluation note* Diagnosis Onset Date Resolution Status Admit Date Abscess of lip resolved May 11:34am History of diabetes mellitus inactiv e May 28, 2025 11:34am Infected lip laceration inactive A ugust 2024 11:34am Abscess of lip resolved May h2024 9:32am Abscess of lip resolved June 15n d, 2024 1:35pm Ventral hernia without obstruction or gangrene acute Septembe r 2024 8:33am [place] [employer] Work Phone: 1(796) 581-250808-04-2025 History and physical note [facility] Medical Records Department [address] [place] [address] H&P Exam - Hospitalist 05/28/25 1134 MR#: [id number] Acct: [id number] Name: TERRANCE BRAR Rep #:[id number] : 1965 59 From: Chavez mayo DO PCP: Dr. Lizet Linares MD Status:A DM IN Location: MS3 SX101-2 HPI - General General Date of Admission: 05/28/25 Date of Service: 05/28/25 Chief Complaint: Worsening upper lip wound with surrounding cellulitis HPI Narrative TERRANCE BRAR, is a 59 F who presented to [facility] ED on 05/28/25 with worsening upper lip wound with surrounding cellulitis. Patient lives at [facility]. She initially came to the ED on [...] discomfort. Will be admitted for further management. [facility] Medical History MRSA (methicillin resistant staph aureus) [...] for therapy for chronic back pain housing: [facility] Smoking Status: Former smoker Tobacco: How many [...] % (Auto) 61.7, Lymph % (Auto) 27.3, Webster % (Auto) 8.7, Eos % (Auto) 1.3, [...] is a 59-year-old female who presented to [facility] ED on 05/28/2025 with worsening upper lip swelling with cellulitis and failed outpatient antibiotics. 1. Right upper lip swelling with cellulitis and failed outpatient antibiotics ? Admit under inpatient status to [facility]. Presentation consistent with cellulitis secondary to lipwound [...] admit. Will treat with reduced dose of Ohddjj53 units twice daily and Humalog 8 units plus sliding scale insulin with meals while inpatient, adjust as needed. Hold home Trulicity. 3. Chronic debility ? Has lived at [facility] for the past 1.5 years. Will plan [...] Full code, verified Expected disposition: Back to [facility], 2 to 3 days Total clinical time spent by myself addressing the patient's medical issues, reviewing all the data, and collaborating with patient's care team: 75 minutes. Charges/Coding Visit Charges Inpatient E&M: 93760 Init Hosp L3 05/28/25 1216 Cosigner Signature (if applicable): CC: Dr. Chavez Alcala DO; Dr. Lizet Linares MD~ Signed [facility]08-02-2025 Discharge summary [facility] Medical Records Department [address] [place] [address] Emergency Department Summary 05/26/25 MR#: [id number] Acct: [id number] Name: TERRANCE BRAR Rep #:[id number] : 1965 59 From: Raúl Brooks PCP: Dr. Lizet Linares MD Status:R EG ER Location: ED HPI History of Present Illness Chief Complaint: Edema Informant: patient Narrative Narrative: Presents by EMS from [facility] progressive swelling right upper lip for [...] for therapy for chronic back pain housing: [facility] Smoking Status: Former smoker Tobacco: How many [...] clinician: N/A This note was generated with Defen[employer] dictation software. It may contain incorrectwords, spelling, [...] % (Auto) 67.7 Lymph % (Auto) 24.6 Webster % (Auto) 6.3 Eos % (Auto) 0.6 [...] returnto the ED for reevaluation. Print Language: Indonesian Disposition Disposition: Home, Self Care What to do if you have Problems For any increased pain, shortness of breath, bleeding, nausea or vomiting, chestpain, or any unexpected problems, contact your Primary Care Provider. Call Doctors [facility] ([phone]) or report tothe closest Emergency Room. Call 911 if necessary. 05/26/25 0544 Cosigner Signature (if applicable): CC: Dr. Lizet Linares MD ~ Signed [facility]05-28-2025 NoteHNO ID: [id number] Author: ?, ?, ? Service: ? Author [...] they see another provider, please update their chart.[facility]05-28-2025 History of Present illness Narrative* Kimmy Jackson - 03/21/2025 12:26 PM EDT Diabetes Outreach Terrance Brar has been identified for clinical review due to having diabetes without a [id number] in the past 1 year. PSS Team [...] please update their chart. documented in this encounterUniversity Hospitals St. John Medical Center05-28-2025 NotePatient Outreach (4CQ) TERRANCE BRAR ([id number]) 1965 F Date Time Provider Department 03/21/25 [...] blood sugar THREE TIMES DAILY - Insulin Exmore, Disposable, (BD ULTRA-FINE BEN PEN NEEDLE) 32 [...] [M65.331] 06/21/2017 Trigger fin (more content not included)...[facility]05-27-2025 NoteHNO ID: [id number] Author: ?, ?, ? Service: ? Author [...] Signature: Raisa Martínez March 20, 2025 12:25 PMCUniversity Hospitals [facility]Point [facility]05-27-2025 History of Present illness Narrative* Raisa Epps [...] 20, 2025 12:25 PM documented in this encounterUniversity Hospitals St. John Medical Center05-27-2025 NotePatient Outreach (NETNAV) TERRANCE BRAR ([id number]) 1965 F Date Time Provider Department 03/20/25 DWAYNE LOPEZ NETABADV During your visit today, we recorded the following information about you: Raisa Epps 03/20/2025 12:51 PM Signed POPULATION HEALTH NAVIGATION OUTREACH Action/FYI Patient outreach for Hcc gaps; Mammogram, A1C, COLO, RUSSELL, KED, BP. AWV. LVM to schedule. After further review, pt is in a [place] follows with facility doctor. Reason for Outreach [...] Population Health Navigation Outreach [3910] Cmt: [employer] Ronnie Prescriptions as of 03/20/2025 - dulaglutide [...] blood sugar THREE TIMES DAILY - Insulin Exmore, Disposable, (BD ULTRA-FINE BEN PEN NEEDLE) 32 [...] finger [M65.351] 0 (more content not included)... [facility]04-21-2025 History of Present illness Narrative* Elizabeth Jennings [facility] - 02/12/2025 11:26 AM EDT Primary Care Pharmacy Panel Management This patient has been identified through Specialty Integration/Value-Based Operations Diabetes Registry Review by the primary care pharmacy team. After review, determined that the patient is not a candidate for pharmacy referral at this time dueto questionable attribution. Elizabeth Jennings RPh documented in this encounterUniversity Hospitals St. John Medical Center04-21-2025 NoteHNO ID: [id number] Author: ELIZABETH JENNINGS RPh Service: ? Author Type: Pharmacist Type: Progress Notes Filed: 02/12/2025 11:27 Note Text: Primary Care Pharmacy Panel Management This patient has been identified through Specialty Integration/Value-Based Operations Diabetes Registry Review by the primary care pharmacy team. After review, determined that the patient is not a candidate for pharmacy referral at this time due to questionable attribution. Elizabeth Jennings RPMercy Health [facility]04-21-2025 NotePatient Outreach (PHMEWO) TERRANCE BRAR ([id number]) 1965 F Date Time Provider Department 02/12/25 [...] blood sugar THREE TIMES DAILY - Insulin Exmore, Disposable, (BD ULTRA-FINE BEN PEN NEEDLE) 32 [...] Breast mass, left [N6 (more content not included)...[facility] 02-06-2025 NotePatient Outreach (FAMPWS) TERRANCE BRAR ([id number]) 1965 F Date Time Provider Department 02/06/25 [...] breast cancer [Z12.31] Order(s):OLIVER SCREENING W MIKE [[id number]] Order #: [id number] FUTURE Prescriptions as of 03/09/2025 - dulaglutide [...] blood sugar THREE TIMES DAILY - Insulin Exmore, Disposable, (BD ULTRA-FINE BEN PEN NEEDLE) 32 [...] Opioid dependence, continuous (HCC (more content not included)...[facility]04-08-2025 Evaluation note* Diagnosis Onset Date Resolution Status Admit Date 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 acute January 1:52pm Essential hypertension acute Ap ril 2024 1:52pm Hyperlipidemia acute January 30, 2025 1:52pm Chest pain noneactive January 30 1:52pm [facility] Work Phone: 1(477) 147-973004-08-2025 Evaluation note* Diagnosis Onset Date Resolution Status Admit Date 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 Service: ? Author Type: ? Type: Progress Notes Filed: 01/05/2025 13:14 Note Text: Patient is identified through a medication adherence outreach initiative based on pharmacy claims data from: [employer] Medication Adherence Category: Statins First Review Attribution Status: Correctly Attributed but Patient in SNF Syeda Markham [facility] Based Care Pharmacy TeamMarietta Memorial Hospital03-14-2025 History of Present illness Narrative* Syeda Markham - 01/05/2025 1:13 PM EDT Patient is identified through a medication adherence outreach initiative based on pharmacy claims data from: [employer] Medication Adherence Category: Statins First Review Attribution Status: Correctly Attributed but Patient in [facility] Syeda Markham [facility] Pharmacy Team documented in this encounterUniversity Hospitals St. John Medical Center03-14-2025 NotePatient Outreach (PHPOHE) TERRANCE BRAR ([id number]) 1965 F Date Time Provider Department 01/05/25 DWAYNE LOPEZ PHPOHE During your visit today, we recorded the following information about you: Syeda Markham 01/05/2025 1:14 PM Signed Patient is identified through a medication adherence outreach initiative based on pharmacy claims data from: [employer] Medication Adherence Category: Statins First Review Attribution Status: Correctly Attributed but Patient in [facility] Syeda Porsha Markham Value Based Care Pharmacy Team Allergies [...] blood sugar THREE TIMES DAILY - Insulin Exmore, Disposable, (BD ULTRA-FINE BEN PEN NEEDLE) 32 [...] Hyponatremia [E87.1] 09/18/2019 Eczema (more content not included)...[facility]02-05-2025 Note HNO ID: [id number] Author: ASHISH BRAY MA Service: ? Author Type: Home Care Aide Type: Progress Notes Filed: 11/29/2024 14:54 Note [...] MA November 29, 2024 2:51 PMCUniversity Hospitals TriPoint Medical Center02-05-2025 History of Present illness Narrative* [...] 2:51 PM documented in this encounterUniversity Hospitals St. John Medical Center02-05-2025 NotePatient Outreach (NETNAV) TERRANCE BRAR ([id number]) 1965 F Date Time Provider Department 11/29/24 [...] blood sugar THREE TIMES DAILY - Insulin Exmore, Disposable, (BD ULTRA-FINE BEN PEN NEEDLE) 32 [...] [M65.331] 06/21/2017 Trigger finger, (more content not included)...[facility] 09-08-2024 NoteHNO ID: [id number] Author: IRENA WILD, ? Service: ? Author Type: Patient Grounding Engineer Type: Progress Notes Filed: 09/08/2024 10:26 Note Text: POPULATION HEALTH NAVIGATION OUTREACH Action/I Vinh No PCP Pt is established with Dr. Lopez; PCP updated Reason for Outreach Care Gap/HCC or Scheduling Wellness Visits Care Gaps due: N/A Patient Contacted: Unable or unnecessary to reach patient: PCP field updated Navigation Signature: Irena Wild September 08, 2024 10:25 [facility]11-15-2024 History of Present illness Narrative* Irena Wild [...] 10:25 AM documented in this encounterUniversity Hospitals St. John Medical Center11-15-2024 NotePatient Outreach (NETNAV) TERRANCE BRAR ([id number]) 1965 F Date Time Provider Department 09/08/24 [...] blood sugar THREE TIMES DAILY - Insulin Exmore, Disposable, (BD ULTRA-FINE BEN PEN NEEDLE) 32 [...] 12/07/2008 Routine General Medical Examination at a [facility]*12/10/2008 06/03/2015 Benign neoplasm of colon [D12.6] [...] or gangr*09/04/2019 Lumbar radiculop (more content not included)...[facility] 04-06-2024 History of Present illness Narrative* [...] the ED visit. Pt currently resides @ [facility] and follows a provider @ the facility Placed pt on attrib list for Vinh Patient seen in ED: Out of Network ED Contact made with Patient: Yes The patient was identified by Name and Date of . Discussed Care with: patient Patient was seen in the Emergency Department (ED) Location: [place] Date: 04/02/24 Reason for ED Visit: CP and blood sugar 44 ED Intervention: cardiac enzymes,EKG per pt Currently experiencing nausea and vomiting but MOTOR BLOCK MECHANIC in to see pt today regarding current symptoms Based on commanding officer homicide squad, the following disposition is advised: No symptoms or symptoms present, not severe. Routed to: No Action Needed JUAN Education Provided this Outreach: No Mel Peacock RN April 06, 2024 11:01 AM documented in this encounterUniversity Hospitals St. John Medical Center06-04-2024 History of Present illness Narrative* Mel Peacock [...] Out of Network ED ER vs to [facility] on 03/24/24 Contact made with Patient: No, [...] call. Patient seen in ED: Out of [facility] ED ER vs to [facility] on 03/24/24 Contact made with Patient: No, left message. Mel Peacock RN March 28, 2024 11:51 AM documented in this encounterUniversity Hospitals St. John Medical Center05-29-2024 Telephone encounter Note * Telephone Encounter - Shonda Valladares LPN - 03/22/2024 2:08 PM EDT Patient scheduled for 04/18/2024 at 1220 with Jesica Mina. Shonda Valladares LPN [facility]05-29-2024 Miscellaneous Notes* Telephone Encounter - Shonda Valladares [...] 5:24 PM documented in this encounterUniversity Hospitals St. John Medical Center05-28-2024 Telephone encounter Note * Telephone Encounter - Dwayne Lopez MD - 03/21/2024 6:38 PM EDT Patient overdue for OV. Please call to schedule appointment in the next [address] [facility]05-28-2024 Telephone encounter Note* Telephone Encounter - Syeda [...] March 21, 2024 5: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 John Medical Center04-18-2024 History of Present illness Narrative* Ariadna Kyle - 02/10/2024 10:45 AM EDT Terrance Brar is identified through a medication adherence outreach initiative based on pharmacy claims data from [employer] (insurer) for Non-insulin DM medication(s). Patient is [...] Ariadna Kyle documented in this encounterUniversity Hospitals St. John Medical Center04-01-2024 Miscellaneous Notes* Telephone Encounter - Rachel Perea LPN - 01/24/2024 12:59 PM EDT Phoned patient to schedule ER follow up visit. Patient reported she is not able to come in this week due their car is being repaired. Agreed to 02/01/24 at 2pm for 40 min visit. documented in this encounterUniversity Hospitals St. John Medical Center03-28-2024 Discharge summary Author Ellis Peterson [facility] January 20, 2024 4:19am Note Date/Time January 20, 2024 1:2 2am [facility] Medical Records Department [address] [place] [address] Emergency Department Summary 01/20/24 MR#: [id number] Acct: [id number] Name: TERRANCE BRAR Rep #:[id number] : 1965 58 From: Ellis Peterson MD PCP: Dr. Jarred Lopez MD Status :REG ER Location: ED HPI History of Present Illness Chief Complaint: Chest Pain Narrative Narrative: 58-year-old female presents from [facility] with sharp, stabbing chest pain that awoke [...] chest pain that awoke her from sleep. [facility] Medical History Anxiety and depression Carpal tunnel [...] for therapy for chronic back pain housing: [facility] Smoking Status: Former smoker Tobacco: How many [...] for pain and nausea, I reviewed her [facility] paperwork and she has history of chronic pain. She was given 1 oxycodone tablet here and Zofran ODT. As long as her second troponin does not show a large delta troponin, I do feel that she would be able to be discharged back to the prison facility. As her second troponin is 21 and she has a negative delta troponin, I feel she can be discharged to follow-up. Disposition is discharged to the prison facility in stable condition. History & Record [...] % (Auto) 58.1 Lymph % (Auto) 34.1 Webster % (Auto) 5.5 Eos % (Auto) 1.4 [...] 3-5 Days if not improving Disposition Disposition: Intermediate Facility Discharge Location: [facility] What to do if you have Problems For any increased pain, shortness of breath, bleeding, nausea or vomiting, chestpain, or any unexpected problems, contact your Primary Care Provider. Call [facility] ([phone]) or report to the closest Emergency Room. Call 911 if necessary. 01/20/24 0410 <Electronically signed by Ellis Peterson MD> Cosigner Signature (if applicable): CC: Dr. Jarred Lopez MD ~ Signed [facility] Work Phone: 1(192) 118-734803-14-2024 History of Present illness Narrative* Rachel Perea LPN - 01/06/2024 1:34 PM EDT TRANSITION CARE MANAGEMENT (TCM) INITIAL CONTACT Home Care Aide Outreach Provider Action/FYI: Initial contact with patient post discharge, spoke to patient. Patient identified by name and . TRANSITION CARE MANAGEMENT INITIAL OUTREACH DOCUMENTATION: 01/06/2024 Date of Outreach: Outreach Attempt 1: Contact Made Date of Discharge 01/05/2024 SUMMARY: -Pt discharged from [facility] on 01/05/24. -Admitted for:1) PE [...] reviewed 01/06/24 documented in [address] encounterUniversity Hospitals St. John Medical Center03-14-2024 Miscellaneous Notes* Telephone Encounter - Rachel Perea LPN - 01/06/2024 12:57 PM EDT Phoned patient and agreeable with 01/13/24 at 2pm for Hosp F/U documented in this encounterUniversity Hospitals St. John Medical Center03-13-2024 Discharge summary Author Ana Rivera [facility] January 05, 2024 11:34am Note Date/Time January 05, 2024 11: 34am [facility] Medical Records Department [address] [place] [address] Transfer to [facility] MR#: [id number] Acct: [id number] Name: TERRANCE BRAR Rep #:[id number] : 1965 58 From: Ana Rivera DO PCP: Dr. Jarred Lopez MD Status :ADM HOMER Certification of patient admission REQUIRED AT TIME OF ADMISSION. I CERTIFY THAT POST-HOSPITAL ECF SERVICES ARE REQUIRED TO BE GIVEN ON AN IN-PATIENT BASIS BECAUSE OF THE ABOVE NAMED PATIENT'S NEED FOR INTERMEDIATE CARE ON A CONTINUING BASIS FOR THE CONDITION(S) FOR WHICH HE/SHE WAS RECEIVING IN-PATIENT HOSPITAL SERVICES PRIOR TO HIS/HER TRANSFER TO [facility]. 01/05/24 1134<Electronically signed by Ana Rivera DO> [...] weeks Please Follow Up With: Miriam Cameron MOTOR BLOCK MECHANIC, MOTOR BLOCK MECHANIC-C When: 1 month Discharge Plan Admission Admit [...] [Primary Care Provider] - Miriam Cameron NP, MOTOR BLOCK MECHANIC-C [Non-Staff -Ordering Privileges] - Within 1 Month (CAD follow up) Disposition Disposition (needs filled in before D/C Order can be placed): Intermediate Facility 01/05/24 1134 <Electronically signed by Ana Rivera DO> Cosigner Signature (if applicable): CC: Dr. Chavez Alcala DO; Dr. Hansa Cast MD; Dr. Jarred Lopez MD ~ [facility] Work Phone: 1(764) 221-627603-13-2024 Discharge summary Author Ana [facility] January 05, 2024 11:32am Note Date/Time January 05, 2024 11: 17am [facility] Medical Records Department [address] [place] [address] Discharge Summary 01/05/24 1116 MR#: [id number] Acct: [id number] Name: TERRANCE BRAR Rep #:[id number] : 1965 58 From: Ana Rivera DO PCP: Dr. Jarred Lopez MD Status :ADM HOMER Location: [place] [address]- Providers Date of Admission: 01/01/24 Date of [...] who presented to the emergency department at [facility] from [facility] facility for acute onset chest pain with [...] since she has followed up with her public health dietitian. She was strongly encouraged to continue incentive [...] skilled services so she was discharged to [facility] after pre-CERT was obtained on 01/05/2024. [...] [Primary Care Provider] - Miriam Cameron NP, MOTOR BLOCK MECHANIC-C [Non-Staff -Ordering Privileges] - Within 1 Month (CAD follow up) Disposition Disposition (needs filled in before D/C Order can be placed): Intermediate Facility Charges/Coding Visit Charges Inpatient E&M: 41236 SNF Disch >30 Min 01/05/24 1132 <Electronically signed by Ana Rivera DO> Cosigner Signature (if applicable): CC: MOTOR BLOCK MECHANIC-C Miriam Cameron; Dr. Jarred Lopez MD; Dr. Ana Rivera DO~ Signed [facility] Work Phone: 1(170) 552-419803-12-2024 Progress note Author Ana Rivera [facility] January 04, 2024 4:59pm Note Date/Time January 04, 2024 5:0 0pm [facility] Medical Records Department [address] [place] [address] Progress Note - Hospitalist 01/04/24 1655 MR#: [id number] Acct: [id number] Name: TERRANCE BRAR Rep #:[id number] : 1965 58 From: Ana Rivera DO PCP: Dr. Jarred Lopez MD Status :ADM HOMER Location: [place] [address] Reason for Visit Reason for Visit: Chest [...] % (Auto) 60.6, Lymph % (Auto) 31.0, Webster % (Auto) 5.1, Eos % (Auto) 1.3, [...] -Plan is discharge back to skilled facility ([facility] once pre-CERT is obtained [...] is obtained Charges/Coding Visit Charges Inpatient E&M: 87266 Subs Hosp L2 01/04/24 1659 <Electronically signed by Ana Rivera DO> Cosigner Signature (if applicable): CC: ~ Signed [facility] Work Phone: 1(625) 675-934803-11-2024 Progress note Author Ana Rivera [facility] January 03, 2024 7:27pm Note Date/Time January 03, 2024 7:1 3pm [facility] Medical Records Department [address] [place] [address] Progress Note - Hospitalist 01/03/24 1901 MR#: [id number] Acct: [id number] Name: TERRANCE BRAR Rep #:[id number] : 1965 58 From: Ana Rivera DO PCP: Dr. Jarred Lopez MD Status :ADM HOMER Location: [place] [address] Reason for Visit Reason for Visit: Chest pain Subjective Subjective Ms. Brar is a 58-year-old white female who presented to the emergency department at [facility] from her prison facility for acute onset chest pain with [...] H 01/03/24 11:03: POC Glucose 333 H 03/11/24 17:19: POC Glucose 356 H Radiography Diagnostic [...] -Plan is discharge back to skilled facility ([facility] once pre-CERT is obtained [...] is obtained Charges/Coding Visit Charges Inpatient E&M: 25086 Subs Hosp L2 01/03/241926 <Electronically signed by Ana Rivera DO> Cosigner Signature (if applicable): CC: ~ Signed [facility] Work Phone: 1(349) 656-581603-10-2024 Progress note Author Chavez Alcala [facility] January 02, 2024 4:34pm Note Date/Time January 02, 2024 12: 04pm [facility] Medical Records Department [address] [place] [address] Progress Note - Hospitalist 01/02/24 1204 MR#: [id number] Acct: [id number] Name: TERRANCE BRAR Rep #:[id number] : 1965 58 From: Chavez mayo DO PCP: Dr. Jarred Lopez MD Status :ADM HOMER Location: [place] [address] Reason for Visit Reason for Visit: Diagnoses [...] % (Auto) 66.7, Lymph % (Auto) 26.5, Webster % (Auto) 4.7, Eos % (Auto) 0.8, [...] % (Auto) 60.2, Lymph % (Auto) 31.4, Webster % (Auto) 5.2, Eos % (Auto) 1.1, [...] is a 58-year-old female who presented to [facility] ED on 01/01/2024 from SNF for chest [...] back pain ? Patient recently hospitalized at [facility] from 11/19-11/24. Was noted to have fairlysevere deconditioning during that hospitalization that apparently was worsened by her chronic back pain. Was discharged to SNF at that time. Has remained at that SNF ([facility]) since then and suspect that she has [...] Full code, verified Expected disposition: Back to SNF, 1 to 2 days Total clinical time spent by myself addressing the patient's medical issues, reviewing all the data, and collaborating with patient's care team: 35 minutes. 01/02/24 1634 <Electronically signed by Chavez Alcala DO> Cosigner Signature (if applicable): CC: ~ Signed [facility] Work Phone: 1(806) 876-434203-10-2024 History and physical note Author Hansa Cast [facility] January 01, 2024 11:38pm Note Date/Time January 01, 2024 10:3 2pm [facility] Medical Records Department [address] [place] [address] H&P Exam - Hospitalist 01/01/245 MR#: [id number] Acct: [id number] Name: TERRANCE BRAR Rep #:[id number] : 1965 58 From: Hansa Cast MD PCP: Dr. Jarred Lopez MD Status :ADM HOMER Location: [place] [address] HPI - General General Date of Admission: [...] prior opiate abuse who presents to the [facility] ED on 01/01/2024 with history [...] therapeutic 80 mg subcu regimen x 1. [facility] Medical History (Updated 01/01/24 @ 23:32 by [...] tablet 40 mg PO QHS #30 tabs 07/28/22 [Rx Last Taken 12/31/23] metoprolol succinate 25 [...] for therapy for chronic back pain housing: [facility] Smoking Status: Former smoker Tobacco: How many [...] % (Auto) 66.7, Lymph % (Auto) 26.5, Webster % (Auto) 4.7, Eos % (Auto) 0.8, [...] prior opiate abuse who presents to the [facility] ED on 01/01/2024 with history [...] Code status. Charges/Coding Visit Charges Inpatient E&M: 70268 Init Hosp L3 01/01/24 2314 <Electronically signed by Hansa Cast MD> Cosigner Signature (if applicable): CC: Dr. Hansa Cast MD; Dr. Jarred Lopez MD~ Signed [facility] Work Phone: 1(407) 646-867203-10-2024 Discharge summary Author Raisa Mc [facility] January 01, 2024 10:58pm Note Date/Time January 01, 2024 6:48 pm [facility] Medical Records Department [address] [place] [address] Emergency Department Summary 01/01/24 MR#: [id number] Acct: [id number] Name: TERRANCE BRAR Rep #:[id number] : 1965 58 From: Raisa Mc MD [...] been ongoing for the past several days. [facility] Medical History Carpal tunnel syndrome Chronic back [...] unit (0.05 mL) subcut LUNCH #0 mL 01/31/24 [Rx Last Taken 01/01/24] melatonin 3 mg [...] for therapy for chronic back pain housing: [facility] Smoking Status: Former smoker Tobacco: How many [...] Medical decision making narrative: Patient placed on cardiac monitor technician. IV line initiated. EKG obtained to evaluatefor [...] % (Auto) 66.7 Lymph % (Auto) 26.5 Webster % (Auto) 4.7 Eos % (Auto) 0.8 [...] Provider] - Disposition Disposition: Acute Care Hospital [facility] What to do if you have Problems For any increased pain, shortness of breath, bleeding, nausea or vomiting, chestpain, or any unexpected problems, contact your Primary Care Provider. Call [facility] ([phone]) or report to the closest Emergency Room. Call 911 if necessary. 01/01/24 7905 <Electronically signed by Raisa Mc MD> Cosigner Signature (if applicable): CC: Dr. Jarred Lopez MD ~ Signed [facility] Work Phone: [phone]) 787-289703-09-2024 Discharge summary Author Raisa Mc [facility] January 01, 2024 10:58pm Note Date/Time January 01, 2024 6:48 pm [facility] Medical Records Department [address] [place] [address] Emergency Department Summary 01/01/24 MR#: [id number] Acct: [id number] Name: TERRANCE BRAR Rep #:[id number] : 1965 58 From: Raisa Mc MD [...] been ongoing for the past several days. [facility] Medical History Carpal tunnel syndrome Chronic back [...] for therapy for chronic back pain housing: [facility] Smoking Status: Former smoker Tobacco: How many [...] Medical decision making narrative: Patient placed on cardiac monitor technician. IV line initiated. EKG obtained to evaluatefor [...] % (Auto) 66.7 Lymph % (Auto) 26.5 Webster % (Auto) 4.7 Eos % (Auto) 0.8 [...] Provider] - Disposition Disposition: Acute Care Hospital [facility] What to do if you have Problems For any increased pain, shortness of breath, bleeding, nausea or vomiting, chestpain, or any unexpected problems, contact your Primary Care Provider. Call [facility] ([phone]) or report to the closest Emergency Room. Call 911 if necessary. 01/01/241 <Electronically signed by Raisa Mc MD> Cosigner Signature (if applicable): CC: Dr. Jarred Lopez MD ~ Signed [facility] Work Phone: 1(149) 341-110811-27-2023 History of Present illness Narrative* Ariadna Kyle - 09/20/2023 8:48 AM EST Terrance Brar is identified through a medication adherence outreach initiative based on pharmacy claims data from [employer] (insurer) for Statin medication(s). Patient is reviewed [...] Ariadna Kyle documented in this encounterUniversity Hospitals St. John [facility] Center10-27-2023 History of Present illness Narrative* Sharonda Sanchez - 08/20/2023 4:22 PM EDT Terrance Brar is identified through a medication adherence outreach initiative based on pharmacy claims data from [employer] (insurer) for Non-insulin DM medication(s) and Statin [...] Both were out of refill Sharonda Sanchez Web Ui Developer documented in this encounterUniversity Hospitals St. John Medical Center10-25-2023 Miscellaneous Notes* Telephone Encounter - [...] Provider Department Center 08/26/2023 1:40 PM 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 APRN.[facility] Please review and refill if appropriate. Thank you. Sharonda Sanchez August 18, 2023 4:11 PM documented in this encounterUniversity Hospitals St. John Medical Center10-25-2023 History of Present illness Narrative* Irena Hood, PSS - 08/18/2023 7:58 AM EDT POPULATION HEALTH NAVIGATION OUTREACH Action/I Pt due for: Return in about 3 [...] Care Gap or Scheduling/Wellness visits Payer: Payor: [employer] / Plan: [employer] HMO / Product Type: HMO / Care [...] 7:58 AM documented in this encounterUniversity Hospitals St. John Medical Center08-31-2023 Miscellaneous Notes* Telephone Encounter - [...] up visit. documented in this encounterUniversity Hospitals St. John Medical Center08-17-2023 Miscellaneous Notes* Telephone Encounter - [...] ounces Magnesium Citrate one hour ago. She saysssangeeta was in [facility] on [...] hemorrhoids, rectal surgery, rectal fissure Protocols used: [id number] documented in this encounterUniversity Hospitals St. John Medical Center08-13-2023 Discharge summary Author Raúl Alejo [facility] June 06, 2023 10:50pm Note Date/Time June 06, 2023 6: 00pm [facility] Medical Records Department [address] [place] [address] Emergency Department Summary 06/06/23 MR#: [id number] Acct: [id number] Name: TERRANCE BRAR Rep #:[id number] : 1965 57 From: Bronson Retana MD [...] for therapy for chronic back pain housing: [facility] Smoking Status: Former smoker Tobacco: How many [...] (Auto) 50.5 Lymph % (Auto) 44.0 H Webster % (Auto) 3.3 Eos % (Auto) 0.9 [...] 2 patch TOPICAL DAILY Patient Comments: PER INTERMEDIATE MAR PT GETS 2 PATCHES APPLIED TO [...] your Primary Care Provider. Call [facility] ([phone]) or report to the closest Emergency Room. Call 911 if necessary. 06/06/232237 <Electronically signed by Bronson Retana MD> Cosigner Signature (if applicable): CC: Dr. Jarred Lopez MD ~ Signed [facility] Work Phone: 1(481) 292-692308-11-2023 Discharge summary Author Bronson Retana [facility] June 04, 2023 9:29pm Note Date/Time June 04, 2023 5: 36pm [facility] Medical Records Department [address] [place] [address] Emergency Department Summary 06/04/23 MR#: [id number] Acct: [id number] Name: TERRANCE BRAR Rep #:[id number] : 1965 57 From: Bronson Retana MD [...] for therapy for chronic back pain housing: [facility] Smoking Status: Former smoker Tobacco: How many [...] % (Auto) 55.4 Lymph % (Auto) 39.6 Webster % (Auto) 3.2 Eos % (Auto) 0.5 [...] Clarity Clear Urine pH 6.5 Ur Specific Lancaster 1.010 Urine Protein 30 H Urine Glucose [...] 2 patch TOPICAL DAILY Patient Comments: PER INTERMEDIATE MAR PT GETS 2 PATCHES APPLIED TO [...] your Primary Care Provider. Call [facility] ([phone]) or report to the closest Emergency Room. Call 911 if necessary. 06/04/232127 <Electronically signed by Bronson Retana MD> Cosigner Signature (if applicable): CC: Dr. Jarred Lopez MD ~ Signed ADDENDUM by Dr. Bronson Retana MD on 06/04/23 at 212 Blood sugar prior to discharge was 271 and improving. 06/04/232128<Electronically signed by Bronson Retana MD> Cosigner Signature (if applicable): cc: Dr. Jarred Lopez MD ~* Signed [facility] Work Phone: 1(255) 858-856508-11-2023 Hospital Discharge instructions Additional Instructions No specific [...] 3 to 5 days. Return if feeling worse.[facility] Work Phone: 1(666) 923-304907-31-2023 Miscellaneous Notes* Telephone Encounter - Lubna Montgomery [...] Department Center 07/09/2023 1:00 PM PodlogJesica sharma APRN.[facility] Please review and refill if appropriate. Thank you. Debra Greer May 20, 2023 2:17 PM documented in this encounterUniversity Hospitals St. John Medical Center07-27-2023 History of Present illness Narrative* Debra rGeer - 05/20/2023 2:14 PM EDT Terrance Brar is identified through a medication adherence outreach initiative based on pharmacy claims data from [employer] (insurer) for Non-insulin DM medication(s) and Statin [...] Debra Greer documented in this encounterUniversity Hospitals St. John Medical Center07-11-2023 History of Present illness Narrative* Ariadna Kyle - 05/04/2023 2:13 PM EDT Terrance Brar is identified through a medication adherence outreach initiative based on pharmacy claims data from [employer] (insurer) for Non-insulin DM medication(s) and Statin [...] Ariadna Kyle documented in this encounterUniversity Hospitals St. John Medical Center06-30-2023 History of Present illness Narrative* Vernon Degroot APRN.[facility]ER [facility]OUND - 04/23/2023 2:50 PM EDT Images from [...] test blood sugar THREE TIMES DAILY Insulin Exmore, Disposable, (BD ULTRA-FINE BEN PEN NEEDLE) 32 [...] and atraumatic. Nose: Nose normal. Mouth/Throat: Lips: Morales-Sanchez. Mouth: Mucous membranes are moist. Pharynx: Uvula [...] CLINDAMYCIN HCL 300 MG CAPSULE Vernon Degroot APRN.CNP documented in this encounterUniversity Hospitals St. John Medical Center06-15-2023 History of Present illness Narrative* [...] Care Gap or Scheduling/Wellness visits Payer: Payor: [employer] / Plan: [employer] HMO / Product Type: HMO / Care [...] 1:51 PM documented in this encounterUniversity Hospitals St. John Medical Center06-14-2023 Miscellaneous Notes* Telephone Encounter - [...] Sandoval MA documented in this encounterUniversity Hospitals St. John Medical Center06-14-2023 History of Present illness Narrative* Dwayne Lopez MD - 04/07/2023 1:18 PM EDT Chief Complaint Patient presents with: SNF d/c follow up HPI Terrance Brar is a 57 year old female who presents here today for Above Complaints.. Patient had been a resident of [facility] since 03/2022 with discharge [...] test blood sugar THREE TIMES DAILY Insulin Exmore, Disposable, (BD ULTRA-FINE BEN PEN NEEDLE) 32 [...] which included preparing to see the patient, [id number] patient care, completing clinical documentation, obtaining and/or reviewing separately obtained history, performing a medically appropriate examination, counseling and educating the pat ient/family/caregiver, and ordering medications, tests, or procedures. Dwayne Lopez MD documented in this encounterUniversity Hospitals St. John Medical Center05-31-2023 History of Present illness Narrative* Dwayne Lopez MD - 03/24/2023 10:23 AM EDT Chief Complaint Patient presents with: Establish Care HPI Susital Brar is a 57 year old female who presents here today for Above Complaints. Accompanied today by her Shan. Patient has been a resident of [facility] since 03/2022 and is planning on being discharged tomorrow. States that she was admitted initially for weakness and inability to walk. This was attributed to her uncontrolled DM. Required 11 months of PT. I have not received any records from [facility] as of yet. Patient has paperwork [...] test blood sugar THREE TIMES DAILY Insulin Exmore, Disposable, (BD ULTRA-FINE BEN PEN NEEDLE) 32 [...] care visit. [facility] from [facility] along with labs obtained 1-2 weeks ago. Dwayne Lopez MD documented in this encounterUniversity Hospitals St. John Medical Center05-02-2023 History of Present illness Narrative* Sharonda Sanchez - 02/23/2023 2:40 PM EDT Terrance Brar is identified through a medication adherence outreach initiative based on pharmacy claims data from [employer] (insurer) for Non-insulin DM medication(s) and Statin [...] and per call to patient/caregiver Sharonda Sanchez Web Ui Developer documented in this encounterUniversity Hospitals St. John Medical Center03-20-2023 History of Present illness Narrative* [...] Terrance Brar is identified through data from [employer] (insurer) as a potential candidate for statin [...] Diagnosis Date Anemia 03/12/2015 Bipolar 2 disorder ([facility]) 05/26/2018 Constipation 03/12/2015 Diabetes mellitus Excessive or frequent menstruation Hyperlipidemia associated with type 2 diabetes mellitus ([facility]) 03/12/2015 Hyperparathyroidism, unspecified ([facility]) 10/24/2008 Hypothyroidism 03/12/2015 Lumbar degenerative disc disease [...] type 2 diabetes mellitus with neurological manifestations ([facility]) 02/27/2016 Cholesterol, Total (mg/dL) Date Value 12/28/2017 [...] attempt 1 - no answer LVBernadette Jha * Donnell Burr RPh - 01/01/2023 12:29 PM EST Approving student documentation and outreach below. Donnell Burr vida PharmD BCACP documented in this encounterUniversity Hospitals St. John Medical Center03-16-[address] Retana [facility] January 07, 2023 4:15pm Note Date/Time January 07, 2023 4:0 7pm [facility] Medical Records Department [address] [facility] [place] [address] Emergency Department Summary 01/07/23 MR#: [id number] Acct: [id number] Name: TERRANCE BRAR Rep #:[id number] : 1965 57 From: Bronson Retana MD [...] dysuria or hematuria. She was written for [employer] for pain they told her she could [...] for therapy for chronic back pain housing: [facility] Smoking Status: Former smoker Tobacco: How many [...] tract infection. A prescription was written for [employer] which they would not let her take at the [facility]. She can take Percocet. She will get [...] 2 patch TOPICAL DAILY Label Comments: PER INTERMEDIATE MAR PT GETS 2 PATCHES APPLIED TO [...] not improving Activity Restrictions/Additional Instructions: Discard the [employer] prescription. Patient has used Percocet before in the past and should be fine with this for pain. Follow-up with your doctor if not improving. Disposition Disposition: Home, Self Care What to do if you have Problems For any increased pain, shortness of breath, bleeding, nausea or vomiting, chestpain, or any unexpected problems, contact your Primary Care Provider. Call [facility] ([phone]) or report to the closest Emergency Room. Call 911 if necessary. 01/07/23 1615 <Electronically signed by Bronson Retana MD> Cosigner Signature (if applicable): CC: Dr. Lizet Linares MD ~ Signed [facility] Work Phone: 1(699) 134-229107-02-2022 Evaluation note* Diagnosis Onset Date Resolution Status Chest pain acute Chronic renal failure, stage 3a acute Elevated troponin acute History of diabetes mellitus acute Hyperlipidemia acute Normochromic normocytic anemia acute Obesity (BMI 35.0-39.9 without comorbidity) acute Opiate abuse, continuous acu te Chronic back pain chronic Depressive disorder chronic [facility] Work Phone: 1(340) 595-508106-10-2022 History of Present illness Narrative* Shital Patel MA - 04/03/2022 12:54 PM EDT POPULATION HEALTH NAVIGATION OUTREACH Action/FYI Patient is on HCC list for below gaps and needs appt to address : 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
E11.69 - Hyperlipidemia associated with type 2 diabetes mellitus (HCC) - [id number] Last Billed 12/26/2019
E21.3 - Hyperparathyroidism (HCC) - [id number] Last Billed 09/18/2019
patient also due for [...] HCC or suspected condition Payer: Payor: [employer] / Plan: [employer] HMO / Product Type: HMO / Care [...] 12:55 PM documented in this encounterUniversity Hospitals St. John Medical Center09-29-2015 History of Past illness Narrative* [...] encounter (statuses as of 04/03/2022) [facility]09-29-2015 History of Past illness Narrative* [...] encounter (statuses as of 01/21/2023) [facility] History of Past illness Narrative* [...] encounter (statuses as of 02/24/2023) [facility]09[facility]29[facility]2015 History of Past illness Narrative* Problem Noted Date Resolved Date Trigger thumb of left hand 07/23/201501/27 Carpal tunnel syndrome, left 05/27/201502/2017 Carpal tunnel syndrome, right 05/27/2015 Constipation 03/12/2015 06/03/2015 Anemia 03/12/2015 02/27/2016 Abdominal pain, right upper quadrant 06/05/2014 06/03/2015 Abdominal pain, epigastric 05/15/201406/03 Routine General Medical Exam ination at a [facility] 12/10/2008 06/03/2015 Overview: HCT [...] encounter (statuses as of 03/24/2023) [facility]09[facility]29[facility]2015 History of Past illness Narrative* [...] encounter (statuses as of 04/07/2023) [facility] History of Past illness Narrative* [...] encounter (statuses as of 04/08/2023) [facility] History of Past illness Narrative* [...] encounter (statuses as of 04/12/2023) [facility] History of Past illness Narrative* [...] encounter (statuses as of 04/23/2023) [facility] History of Past illness Narrative* [...] encounter (statuses as of 05/05/2023) [facility] History of Past illness Narrative* [...] encounter (statuses as of 05/20/2023) [facility] History of Past illness Narrative* [...] encounter (statuses as of 05/24/2023) [facility] History of Past illness Narrative* [...] encounter (statuses as of 06/10/2023) [facility] History of Past illness Narrative* [...] encounter (statuses as of 06/30/2023) [facility] History of Past illness Narrative* [...] encounter (statuses as of 08/18/2023) [facility] History of Past illness Narrative* [...] encounter (statuses as of 08/19/2023) [facility] History of Past illness Narrative* [...] encounter (statuses as of 08/20/2023) [facility] History of Past illness Narrative* [...] encounter (statuses as of 09/20/2023) [facility] History of Past illness Narrative* [...] encounter (statuses as of 01/06/2024) [facility] History of Past illness Narrative* [...] encounter (statuses as of 01/25/2024) [facility] History of Past illness Narrative* [...] encounter (statuses as of 02/07/2024) [facility] History of Past illness Narrative* [...] encounter (statuses as of 02/10/2024) [facility] Author Raúl Alejo [facility] Note Date/Time May 26, 2025 5:4 4am [facility] Medical Records Department [address] [place] [address] Emergency Department Summary 05/26/25 MR#: [id number] Acct: [id number] Name: TERRANCE BRAR Rep #:[id number] : 1965 59 From: Raúl Brooks PCP: Dr. Lizet Linares MD Status:R EG ER Location: ED HPI History of Present Illness Chief Complaint: Edema Informant: patient Narrative Narrative: Presents by EMS from [facility] progressive swelling right upper lip for [...] for therapy for chronic back pain housing: [facility] Smoking Status: Former smoker Tobacco: How many [...] clinician: N/A This note was generated with [employer] dictation software. It may contain incorrectwords, spelling, [...] % (Auto) 67.7 Lymph % (Auto) 24.6 Webster % (Auto) 6.3 Eos % (Auto) 0.6 [...] to the ED for reevaluation. Print Language: Indonesian Disposition Disposition: Home, Self Care What to do if you have Problems For any increased pain, shortness of breath, bleeding, nausea or vomiting, chestpain, or any unexpected problems, contact your Primary Care Provider. Call [facility] ([phone]) or report to the closest Emergency Room. Call 911 if necessary. 05/26/25 0544 <Electronically signed by Raúl Brooks> Cosigner Signature (if applicable): CC: Dr. 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 HTN (hypertension) chronic Pure hypercholesterolemia ch ronic [facility] Work Phone: Evaluation note* Diagnosis Onset Date Resolution Status Chest pain resolved [facility] Work Phone: Evaluation note* Diagnosis Onset Date Resolution Status Chest pain resolved Diabetes acute Nonspecific chest pain acute Renal insufficiency acute [facility] Work Phone: Evaluation note* Diagnosis Onset Date Resolution Status Chest pain resolved Diabetes acute Hypothyroidism acute Nonspecific chest pain acute Renal insufficiency acute [facility] Work Phone: Evaluation note* Diagnosis Onset Date Resolution Status Hyperlipidemia acute Chest pain resolved Hypothyroidism acute Nonspecific chest pain resol shirley 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 acute Chest pressure acute Dizziness acute Dyspnea acute Essential hypertension acute Hyperlipidemia acute [facility] Work Phone: Evaluation note* Diagnosis Onset Date Resolution Status Hypothyroidism acute Nonspecific chest pain resol shirley 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 acute Chest pressure acute Dizziness acute Dyspnea acute Essential hypertension acute Hyperlipidemia acute [facility] Work Phone: Evaluation note* Diagnosis Onset Date Resolution Status 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 acute Chest pressure acute Dizziness acute Dyspnea acute Essential hypertension acute Hyperlipidemia acute 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 acute Bilateral lower extremity edema acute Essential hypertension acute Hyperlipidemia acute [facility] Work Phone: Evaluation note* Diagnosis Onset Date Resolution Status 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 acute Bilateral lower extremity edema acute Essential hypertension acute Hyperlipidemia acute [facility] Work Phone: Evaluation note* Diagnosis Globus sensation- Primary Gastrointestinal malfunction arising from mental factors Gastroesophageal reflux disease, unspecified whether esophagitis present documented in this encounter [facility]* Diagnosis Onset Date Resolution Status 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 acute Bilateral lower extremity edema acute Essential hypertension acute Hyperlipidemia acute Palpitations acute [facility] Work Phone: Evaluation note* Diagnosis Generalized weakness- [...] type dependence, continuous documented in this encounter [facility] note* Diagnosis Toothache- Primary Unspecified disorder of the teeth and supporting structures documented in this encounter [facility] note* Diagnosis Onset Date Resolution Status Acute leg pain acute Diabetes mellitus with hyperglycemia acute Diarrhea acute Nausea acute [facility] Work Phone: Evaluation note* Diagnosis Onset Date Resolution Status Diarrhea acute Acute leg pain resolved Diabetes mellitus with hyperglycemia resolved Nausea resolved Pulmonary emboli acute [facility] Work Phone: Evaluation note* Diagnosis Onset Date Resolution Status Diarrhea acute Acute leg pain resolved Diabetes mellitus with hyperglycemia resolved Nausea resolved Chest pressure acute Pulmonary emboli acute [facility] Work Phone: Evaluation note* Diagnosis Onset Date Resolution Status Diarrhea acute Acute leg pain resolved Diabetes mellitus with hyperglycemia resolved Nausea resolved Chest pressure acute [facility] Work Phone: Evaluation note* Diagnosis Encounter for screening mammogram for breast cancer documented in this encounter [facility] note* Diagnosis Pre-operative examination- Primary Preoperative examination, [...] for breast cancer [facility] November 19, 2023 11:02am Note Date/Time November 19, 2023 1 0:38am [facility] Medical Records Department [address] [place] [id number] H&P Exam - Hospitalist 11/19/23 1037 MR#: [id number] Acct: [id number] Name: TERRANCE BRAR Rep #:[id number] : 1965 58 From: John Shaw MD PCP: Dr. Jarred Lopez MD Status :ADM HOMER Location: [facility] FA633-2 HPI - General General Date of Admission: [...] admittedto regular nursing floor for further management [facility] Medical History Carpal tunnel syndrome Chronic back [...] for therapy for chronic back pain housing: [facility] Smoking Status: Former smoker Tobacco: How many [...] % (Auto) 59.6, Lymph % (Auto) 35.7, Webster% (Auto) 3.3, Eos % (Auto) 0.4, Baso [...] Sl. Cloudy, Urine pH 6.0, Ur Specific [place] 1.015, Urine Protein 30 H, Urine Glucose [...] Requested for PT OT eval and social service agency director to assist with discharge planning 12. DVT [...] documentation, 75Minutes Charges/Coding Visit Charges Inpatient E&M: 44506 Init Hosp L3 Procedures Hospitalists Procedures: 60529 Advncd Care Plan addl 30 Min 11/19/23 1102 <Electronically signed by John Shaw MD> Cosigner Signature (if applicable): CC: Dr. Jarred Lopez MD; Dr. John Shaw MD~ Signed [facility] Work Phone: History and physical note Author Chavez Alcala [facility] Note Date/Time May 28, 2025 12: 16pm [facility] Medical Records Department [address] [place] [address] H&P Exam - Hospitalist 05/28/25 1134 MR#: [id number] Acct: [id number] Name: TERRANCE BRAR Rep #:[id number] : 1965 59 From: Chavez mayo DO PCP: Dr. Lizet Linares MD Status:A DM IN Location: [facility] [id number] HPI - General General Date of Admission: 05/28/25 Date of Service: 05/28/25 Chief Complaint: Worsening upper lip wound with surrounding cellulitis HPI Narrative TERRANCE BRAR, is a 59 F who presented to [facility] ED on 05/28/25 with worsening upper lip wound with surrounding cellulitis. Patient lives at [facility]. She initially came to the ED on [...] discomfort. Will be admitted for further management. [facility] Medical History MRSA (methicillin resistant staph aureus) [...] for therapy for chronic back pain housing: [facility] Smoking Status: Former smoker Tobacco: How many [...] % (Auto) 61.7, Lymph % (Auto) 27.3, Webster % (Auto) 8.7, Eos % (Auto) 1.3, [...] is a 59-year-old female who presented to [facility] ED on 05/28/2025 with worsening upper lip swelling with cellulitis and failed outpatient antibiotics. 1. Right upper lip swelling with cellulitis and failed outpatient antibiotics ? Admit under inpatient status to [facility]. Presentation consistent with cellulitis secondary to lip [...] 3. Chronic debility ? Has lived at [facility] for the past 1.5 years. Will plan [...] Full code, verified Expected disposition: Back to [facility], 2 to 3 days Total clinical time spent by myself addressing the patient's medical issues, reviewing all the data, and collaborating with patient's care team: 75 minutes. Charges/Coding Visit Charges Inpatient E&M: 06351 Init Hosp L3 05/28/25 1216 <Electronically signed by Chavez Alcala DO> Cosigner Signature (if applicable): CC: Dr. Chavez Alcala DO; Dr. Lizet Linares MD~ Signed [facility] Work Phone: [phone] Discharge instructions Additional Instructions Your MRI today showed some mild disc disease of L3 and L4. The thoracic spine was fine. There is no compression of your spinal cord. Nothing needs to be done acutely. Motrin and Tylenol for pain. Follow-up with your primary care physician.[facility] Work Phone: [facility] Work Phone: [phone] Discharge instructionsWClermont [facility] Work Phone: [facility] instructionsWCl[facility] Work Phone: [facility] Work Phone: [phone] Discharge instructionsWCl[facility] Work Phone: [facility] instructionsW[facility] Work Phone: [facility] instructionsW[facility] Work Phone: [facility] Discharge instructionsWCl[facility] Work Phone: [facility] instructionsW[facility] Work Phone: [facility] instructionsWCl[facility] Work Phone: [facility] instructionsWCl[facility] Work Phone: [phone] Discharge instructions Additional Instructions Your work-up today does not show a kidney stone bowel obstruction or acute appendicitis. It does demonstrate urinary tract infection but at this time it is not causing kidney damage or moving in your bloodstream. Therefore take the antibiotic as directed to help resolve your infection and return to the ER should you have any further concerns.[facility] Work Phone: Hospital Discharge instructions Additional Instructions Discard the [place] prescription. Patient has used Percocet before in the past and should be fine with this for pain. Follow-up with your doctor if not improving.[facility] Work Phone: Hospital Discharge instructions Additional Instructions Increase fiber in your diet. Take an dgzi-ulc-xnuxbop stool softener.[facility] Work Phone: Hospital Discharge instructions Additional Instructions Watch her blood sugars very closely. Take your medications as prescribed. Recheck your blood sugar prior to going to bed tonight Call and follow-up your primary care physician this coming week.[facility] Work Phone: Hospital Discharge instructionsAdditional Instructions Upper lip infection. Blood work normal white count 9.9. You are given clindamycin IV. 18-gauge needle for needle decompression there is no exudative drainage. Taking finish antibiotic prescribed. Pain medicines as needed. Follow-up with Dr. Whatley. If you develop worsening symptoms or fevers, return to the ED for reevaluation.[facility] Work Phone: Progress note Author Rosa Maria Hagan [facility] Note Date/Time July 17, 2025 9:22am [facility] [address] [place] [address] OFFICE VISIT Date of Service: 07/17/25 MR#: [id number] Acct: [id number] Name: TERRANCE BRAR Rep #: [id number] : 1965 Provider: Dr. James Hagan MD Age/Sex: 59/F Location: [facility] Status: Signed Intake Vital Signs 06/15/25 13:43 07/17/25 08:59 Height 5 ft 5 ft Weight: 208 lb BMI 40.6 BP 155/78 H Blood Pressure Location Lt brachial Position Sitting Respiration 17 Pulse 67 Pulse Source Monitor Pulse Oximetry (%) 98 Oxygen Delivery Method room air Intake Visit Reasons: ABDOMINAL HERNIA Chief Complaint: abdominal hernia Is patient in pain?: No Allergies celecoxib (From Celebrex) Allergy (Verified 07/17/25 09:01) Itching ciprofloxacin (From Cipro) Allergy (Verified 07/17/25 09:01) Swelling ciprofloxacin HCl (From Cipro) Allergy (Verified 07/17/25 09:01) Swelling codeine Allergy (Verified 07/17/25 09:01) Hives ibuprofen Allergy (Verified 07/17/25 09:01) Hives naproxen Allergy (Verified 07/17/25 09:01) Hives Penicillins Allergy (Verified 07/17/25 09:01) Hives tramadol HCl (From Ultram) Allergy (Verified 07/17/25 09:01) Hives ketorolac (From Toradol) Adverse Reaction (Verified 07/17/25 09:01) Swelling tirzepatide (From Mounjaro) Adverse Reaction (Verified 07/17/25 09:01) unknown Medications ?Medication ?Instructions ?Recorded ?Confirmed ?Type rizatriptan 10 mg tablet 10 mg PO PRN Migraine Sympto ms 12/27/17 07/17/25 History atorvastatin 40 mg tablet 40 mg PO QHS #30 tabs 07/17/25 Rx metoprolol succinate 25 mg 25 mg PO DAILY #30 tabs 07/17/25 Rx tablet,extended release 24 hr pantoprazole 40 mg tablet,delayed 40 mg PO DAILY 06/1207/17/25 History release ranolazine 500 mg tablet,extended 500 mg PO BID #60 ta bs 06/12/22 07/17/25 Rx release,12 hr acetaminophen 325 mg tablet 650 mg (2 x 325 mg) PO Q6H PRN PRN 11/24/23 06/15/25 Rx Pain 1-10 Or Fever >100.7 #0 tabs melatonin 3 mg tablet 3 mg PO QHS PRN PRN Insomnia #0 11/24/23 07/17/25 Rx tabs sennosides 8.6 mg-docusate sodium 2 tab PO BID PRN PRN Constipation 01/05/24 07/17/25 Rx 50 mg tablet (Stool #0 tabs Softener-Stimulant Laxative) loperamide 2 mg capsule 2 mg PO Q6H PRN loose stool 04/02/24 07/17/25 History (Anti-Diarrheal (loperamide)) fluticasone propionate 50 2 spray intranasal DAILY 07/17/25 History mcg/actuation nasal spray,suspension (Aller-Scar) nitroglycerin 0.4 mg sublingual 0.4 mg sublingual Q5M PRN chest 06/20/24 07/17/25 History tablet pain promethazine 25 mg tablet 25 mg PO Q6H PRN nausea and 06/20/24 07/17/25 History vomiting apixaban 5 mg tablet (Eliquis) 5 mg PO BID 08/19/24 History bisacodyl 10 mg rectal suppository 10 mg HI DAILY PRN constipation 08/19/24 07/17/25 History fenofibrate 160 mg tablet 160 mg PO DAILY 08/19/24 History magnesium citrate (Citrate of 150 ml PO PRN PRN consti pation 08/19/24 07/17/25 History Magnesia oral) magnesium hydroxide 400 mg/5 mL 30 ml PO DAILY PRN con stipation 08/19/24 07/17/25 History oral suspension (Dulcolax (magnesium hydroxide)) ondansetron 4 mg disintegrating 4 mg PO Q8H PRN PRN Na usea #10 tabs 10/24/24 07/17/25 Rx tablet carboxymethylcellulose sodium 1 % 1 drp ophthalmic (ey e) TID 01/30/25 06/15/25 History eye drops (Artificial Tears (carboxymethylcellulose)) citalopram 20 mg tablet 20 mg PO QDAY 01/30/2507/17 History levothyroxine 137 mcg tablet 137 mcg PO QDAY #90 tabs 04/26/25 07/17/25 Rx (Levoxyl) doxycycline hyclate 100 mg capsule 100 mg PO BID #14 c aps 06/01/25 06/15/25 Rx insulin glargine-yfgn 100 unit/mL 30 unit (0.3 mL) sub cut BID #0 mL 06/01/25 07/17/25 Rx (3 mL) subcutaneous pen insulin lispro 100 unit/mL See Protocol subcut ACHS #0 mL 06/01/25 07/17/25 Rx subcutaneous pen (Humalog KwikPen (U-100) Insulin) dextrose 40 % oral gel (Glucose 10 g PO Q15M PRN 06/0706/15/25 History Gel) tirzepatide 2.5 mg/0.5 mL 2.5 mg subcut QWEEK 06/07/25 07/17/25 History subcutaneous pen injector (Riddhiro) oxycodone-acetaminophen 5 mg-325 1 tab PO TID 07/17/25 07/17/25 History mg tablet PFSH Medical History MRSA (methicillin resistant staph [...] Thyroid disease Migraines Stomach ulcer HTN (hypertension) Surgical History History of cholecystectomy S/P trigger finger release H/O: hysterectomy Hx of section Family History Mother CVA (cerebral vascular accident) Hypertension Heart disease Myocardial infarction Diabetes Kidney disease Breast cancer Father Asthma Social History household members: other details: currently living in a NH for therapy for chronic back pain housing: [facility] Smoking Status: Former smoker Tobacco: How many years used: 46 how long ago did patient quit smoking: Quit 09/2021, smoked 1 ppd since teen until quit. alcohol intake: never substance use type: other details: History of chronic opiate use. Denies abuse. HPI HPI HPI: 59-year-old female presents due to ventral hernia. Patient states she has had this for about 7 years however over the last month she has been having increasedpain at this area. Does state that and come on anytime if it is when she is just sitting she will lay down and it will resolve. Patient does have a chemical stress test scheduled on July 26. Patient's A1c currently is 9.3 down from 10.5 and 10.8 in March 2025. Patient is also on Eliquis due to historyof PE. Patient had previous CT abdomen pelvis on 2023 did show this ventral hernia that is almost 3 cm at the fascia. ROS General General: No weight change, appetite, fatigue, colon cancer or breast cancer HEENT HEENT: Yes difficulty swallowing and eye surgery; No eye injury, swollen glands or hoarseness Endo Endocrine: Yes thyroid disease and diabetes mellitus; No thyroid cancer, Hair loss, heat intolerance or cold intolerance Skin Skin: No rash or changing moles Musc Musculoskeletal: Yes back problems; No arthritis, rheumatoid arthritis, gout or joint pain Cardio Cardiovascular: Yes high blood pressure; No murmur, pacemaker, heart disease, atrial fibrillation, heart attack, heart stent, palpitations, shortness of breath with exertion or chest pain Psych Psychiatric: Yes depression and anxiety; No hearing voices Resp Respiratory: No shortness of breath, No sleep apnea, No cough, No COPD, No asthma, No emphysema and No wheezing Gastro Gastrointestinal: Yes abdominal pain, Yes nausea or vomiting, Yes diarrhea, Yes constipation, No blood in stool, Yes acid reflux, No hemorrhoids, No ulcers, No gallbladder problem and No black,tarry stools Isma Hematologic: Yes blood thinners, No blood disorders, No bleeding, No anemia and Yes blood clots Additional Details: Lung-12/19 Neuro Neurologic: Yes numbness (handness) and Yes tingling Exam Const General: cooperative, comfortable and no acute distress [facility] Head: normocephalic and atraumatic Neck Neck: supple Resp Effort & Inspection: normal respiratory effort Cardio Rate: regular rate GI Inspection: non-distended Palpation: soft, hernia (Ventral at umbilicus somewhat difficult to appreciate on exam-reducible) and nontender Skin General: no rashes or lesions noted Neuro General: CN's II-XI intact bilaterally Extrem General: normal to inspection Psych Mental Status: mental status grossly normal Attitude: cooperative Assessment and Plan Assessment and Plan (1) Ventral hernia without obstruction or gangrene: Status: Acute Plan Discussed with patient she would need medical clearance including her stress test which is scheduled July 26. Also her A1c is currently 9.3 from 07/09/2025would recommend A1C <8. Would recommend robotic ventral hernia repair with mesh in the future. Reviewed the procedure with the patient including the risks, including but not limited toinfection, bleeding, injury to the small bowel, and recurrence. All questions were answered. Also, discussed risk of strangulated bowel. Cautioned the patientthat if she has N/V, ABD distention, increased umbilical pain or changes of the skin over the hernia she needs to go to the ER?the hernia does not reduce. Patient had no further questions time. Rosa Maria Hagan M.D. Pager: [phone] [facility] [address] [place] [address], [facility], [address] [place] [address] Office: [phone] Coding Level of Care Code Off vis,new,level 4 Diagnoses Ventral hernia without obstruction or gangrene K43.9 07/17/25 1321 <Electronically signed by Rosa Maria Iraheta am, MD> Date _ Rosa Maria Hagan MD Cosigner Signature: Date (if applicable) CC: Dr. Lizet Linares MD ~ [facility] [employer] Work Phone: Reason for referral (narrative)* Diagnostic Procedure Only (Routine) - Pending Review Specialty Diagnoses / Procedures Referred By Mamta t Referred To Contact [facility] Diagnoses Encounter for screening mammogram for breast cancer Procedures OLIVER SCREENING SCREENING MAMMOGRAPHY BI 2-VIEW BREAST INC CAD Dwayne Lopez MD [address] [place] [address] [facility] [address] [place] [address] Referral ID Status Reason Start Date Expiration Date Visits Requested Visits Authorized [id number] Pending Review Auto-Generat ed Referral 03/08/2024 04/07/2025 [facility]ative)No reason for referral information availableWClermont County Hospital Work Phone: Summary Purpose Family History [...] Unknown Diabetes mellitus Unknown father Asthma Unknown Relationship Condition Age at Onset Recorded Date/T lukasz mother Cerebrovascular accident (CVA) Unknown Hypertension Unknown Cardiac disease Unknown Myocardial infarction Unknown Diabetes mellitus Unknown Kidney disorder Unknown Malignant neoplasm of breast Unknown father Asthma Unknown Advance Directives No Advanced Directives Records Found Advance Directive Response Recorded Date/ Time Advance Directives No April 21 2:21pm Living Will No January 13, 2022 2:31pm Power of Communication Signals Intelligence No January 13 2:31pm Advance Directive Response Recorded Date/ Time Advance Directives No April 21 2:21pm Living Will No February 24, 2022 1: 16pm Power of Communication Signals Intelligence No February 24, 2022 1:16pm Advance Directive Response Recorded Date/ Time Advance Directives No April 21 2:21pm Living Will No March 20, 2022 5 :54pm Power of Communication Signals Intelligence No March 20, 2022 5:54pm Documents on File Type Date Recorded 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 Advance Directive(s) 10/10/2020 10:19 AM [...] April 24, 2022 5 :45pm Power of Communication Signals Intelligence No April 24, 2022 5:45pm Advance Directive Response Recorded Date/ Time Advance Directives No May 13 3:12pm Living Will No May 20, 2022 10:19pm Power of Communication Signals Intelligence No May 20 10:19pm Advance Directive Response Recorded Date/ Time Advance Directives No May 13 3:12pm Living Will No May 21, 2022 4:04am Power of Communication Signals Intelligence No May 21 4:04am Advance Directive Response Recorded Date/ Time Advance Directives No May 13 3:12pm Living Will No August 24 3:23am Power of Communication Signals Intelligence No August 24, 2022 3:23am Advance Directive Response Recorded Date/ Time Advance Directives No May 13 2:12pm Living Will No August 24 2:23am Power of Communication Signals Intelligence No August 24, 2022 2:23am Advance Directive Response Recorded Date/ Time Advance Directives No May 13 2:12pm Living Will No October 09, 022 1:31am Power of Communication Signals Intelligence No October 09, 2022 1:31am Advance Directive Response Recorded Date/ Time Advance Directives No May 13 2:12pm Living Will No November 05 1:46am Power of Communication Signals Intelligence No November 05, 2022 1:46am Advance Directive Response Recorded Date/ Time Advance Directives No May 13 3:12pm Living Will No January 06, 2023 5:42pm Power of Communication Signals Intelligence No January 06 5:42pm Advance Directive Response Recorded Date/ Time Advance Directives No May 13 3:12pm Living Will No January 07, 2023 3:43pm Power of Communication Signals Intelligence No January 07 3:43pm Advance Directive Response Recorded Date/ Time Advance Directives No May 13 3:12pm Living Will No January 29, 2023 10:04pm Power of Communication Signals Intelligence No January 29 10:04pm Advance Directive Response Recorded Date/ Time Advance Directives No May 13 3:12pm Living Will No March 28, 2023 9 :08am Power of Communication Signals Intelligence No March 28, 2023 9:08am Advance Directive Response Recorded Date/ Time Advance Directives No May 13 3:12pm Living Will No June 04 3 4:57pm Power of Communication Signals Intelligence No June 04 2 023 4:57pm Advance Directive Response Recorded Date/ Time Advance Directives No May 13 3:12pm Living Will No June 06 3 6:12pm Power of Communication Signals Intelligence No June 06 2 023 6:12pm Advance Directive Response Recorded Date/ Time Advance Directives No May 13 3:12pm Living Will No June 10 2:58pm Power of Communication Signals Intelligence No June 10 023 2:58pm Advance Directive Response Recorded Date/ Time Advance Directives No May 13 2:12pm Living Will No November 19 8:42am Power of Communication Signals Intelligence No November 19, 2023 8:42am Advance Directive Response Recorded Date/ Time Advance Directives No May 13 2:12pm Living Will No January 01, 2024 6:36pm Power of Communication Signals Intelligence No December 31 6:36pm Advance Directive Response Recorded Date/ Time Advance Directives No May 13 3:12pm Living Will No January 02, 2024 12:44am Power of Communication Signals Intelligence No January 01 12:44am Advance Directive Response Recorded Date/ Time Advance Directives No May 13 3:12pm Living Will No January 20, 2024 1:09am Power of Communication Signals Intelligence No January 19 1:09am Advance Directive Response Recorded Date/ Time Living Will No October 24 024 12:12pm Do you have a Healthcare Power of Communication Signals Intelligence? No October 24, 2024 12:12pm Living Will No January 22, 2025 10:46am Do you have a Healthcare Power of Communication Signals Intelligence? No January 22, 2025 10:46am Advance Directives No May 13 3:12pm Advance Directive Response Recorded Date/ Time Advance Directives No March 16 7:49am Living Will No January 22, 2025 10:46am Do you have a Healthcare Power of Communication Signals Intelligence? No January 22, 2025 10:46am Advance Directive Response Recorded Date/ Time Advance Directives No March 16 7:49am Advance Directive Response Recorded Date/ Time Do you have a Healthcare Power of Communication Signals Intelligence? No May 26, 2025 12:34am Advance Directives No March 16 7:49am Advance Directive Response Recorded Date/ Time Do you have a Healthcare Power of Communication Signals Intelligence? No May 26, 2025 12:34am Do you have a Healthcare Power of Communication Signals Intelligence? No May 28, 2025 12:42pm Advance Directives No March 16 7:49am Advance Directive Response Recorded Date/ Time Advance Directives No August 10, 2025 8:33am Do you have a Healthcare Power of Communication Signals Intelligence? No May 26, 2025 12:34am Do you have a Healthcare Power of Communication Signals Intelligence? No May 28, 2025 12:42pm Chief Complaint and Reason for Visit Chief [...] PAIN ACUTE ON CHRONIC LOW BACK PAIN INTERMEDIATE LABWORK LABWORK Chief Complaint GENERAL ILLNESS NUMBNESS [...] PAIN ACUTE ON CHRONIC LOW BACK PAIN INTERMEDIATE LABWORK LABWORK CP, DM, HTN CP, DM, [...] PAIN ACUTE ON CHRONIC LOW BACK PAIN INTERMEDIATE LABWORK LABWORK CP, DM, HTN CP, DM, [...] PAIN ACUTE ON CHRONIC LOW BACK PAIN INTERMEDIATE LABWORK LABWORK INTERMEDIATE LABWORK CP, DM, HTN CP, DM, HTN [...] PAIN ACUTE ON CHRONIC LOW BACK PAIN INTERMEDIATE LABWORK LABWORK INTERMEDIATE LABWORK CP, DM, HTN CP, DM, HTN [...] PAIN ACUTE ON CHRONIC LOW BACK PAIN INTERMEDIATE LABWORK LABWORK INTERMEDIATE LABWORK CP, DM, HTN CP, DM, HTN [...] PAIN ACUTE ON CHRONIC LOW BACK PAIN INTERMEDIATE LABWORK LABWORK INTERMEDIATE LABWORK CP, DM, HTN CP, DM, HTN CP, DM, HTN CP, DM, HTN LAB WORK NEW SYMPTOMS/CONCERNS CHEST PAIN CHEST PAIN ER FOLLOW UP INTERMEDIATE LABWORK LAB WORK CHEST PAIN CHEST PAIN INTERMEDIATE LABWORK Amb 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 Reason for Visit Hyperlipidemia Chest pain Hypothyroidism Nonspecific chest pain Atherosclerotic heart disease of [place] coronary artery without angina pectoris Chest pressure [...] PAIN ACUTE ON CHRONIC LOW BACK PAIN INTERMEDIATE LABWORK LABWORK INTERMEDIATE LABWORK CP, DM, HTN CP, DM, HTN CP, DM, HTN CP, DM, HTN LAB WORK NEW SYMPTOMS/CONCERNS CHEST PAIN CHEST PAIN ER FOLLOW UP INTERMEDIATE LABWORK LAB WORK CHEST PAIN CHEST PAIN INTERMEDIATE LABWORK INTERMEDIATE LABWORK Amb 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 INTERMEDIATE LABWORK DYSPNEA *GRUPO* Reason for Visit Hyperlipidemia Chest pain Hypothyroidism Nonspecific chest pain Atherosclerotic heart disease of [place] coronary artery without angina pectoris Chest pressure [...] PAIN ACUTE ON CHRONIC LOW BACK PAIN INTERMEDIATE LABWORK LABWORK INTERMEDIATE LABWORK CP, DM, HTN CP, DM, HTN CP, DM, HTN CP, DM, HTN LAB WORK NEW SYMPTOMS/CONCERNS CHEST PAIN CHEST PAIN ER FOLLOW UP INTERMEDIATE LABWORK LAB WORK CHEST PAIN CHEST PAIN INTERMEDIATE LABWORK INTERMEDIATE LABWORK Amb 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 INTERMEDIATE LABWORK INTERMEDIATE LAB WORK DYSPNEA *GRUPO* INTERMEDIATE LAB WORK Reason for Visit Hyperlipidemia Chest pain Hypothyroidism Nonspecific chest pain Atherosclerotic heart disease of [place] coronary artery without angina pectoris Chest pressure Dizziness Dyspnea Essential hypertension Hyperlipidemia Chief Complaint LABWORK INTERMEDIATE LABWORK CP, DM, HTN CP, DM, HTN CP, DM, HTN CP, DM, HTN LAB WORK NEW SYMPTOMS/CONCERNS CHEST PAIN CHEST PAIN ER FOLLOW UP INTERMEDIATE LABWORK LAB WORK CHEST PAIN CHEST PAIN INTERMEDIATE LABWORK INTERMEDIATE LABWORK Amb 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 INTERMEDIATE LABWORK INTERMEDIATE LAB WORK DYSPNEA *GRUPO* LABWORK INTERMEDIATE LAB WORK INTERMEDIATE LABWORK Reason for Visit Hyperlipidemia Chest pain Hypothyroidism Nonspecific chest pain Atherosclerotic heart disease of [place] coronary artery without angina pectoris Chest pressure Dizziness Dyspnea Essential hypertension Hyperlipidemia Chief Complaint CP, DM, HTN CP, DM, HTN CP, DM, HTN CP, DM, HTN LAB WORK NEW SYMPTOMS/CONCERNS CHEST PAIN CHEST PAIN ER FOLLOW UP INTERMEDIATE LABWORK LAB WORK CHEST PAIN CHEST PAIN INTERMEDIATE LABWORK INTERMEDIATE LABWORK Amb 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 INTERMEDIATE LABWORK INTERMEDIATE LAB WORK DYSPNEA *GRUPO* LABWORK INTERMEDIATE LAB WORK INTERMEDIATE LABWORK INTERMEDIATE LABWORK Reason for Visit Hyperlipidemia Chest pain Hypothyroidism Nonspecific chest pain Atherosclerotic heart disease of [place] coronary artery without angina pectoris Chest pressure Dizziness Dyspnea Essential hypertension Hyperlipidemia Chief Complaint CHEST PAIN CHEST PAIN ER FOLLOW UP INTERMEDIATE LABWORK LAB WORK CHEST PAIN CHEST PAIN INTERMEDIATE LABWORK INTERMEDIATE LABWORK Amb 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 INTERMEDIATE LABWORK INTERMEDIATE LAB WORK DYSPNEA *GRUPO* LABWORK INTERMEDIATE LAB WORK LABWORK INTERMEDIATE LABWORK INTERMEDIATE LABWORK INTERMEDIATE LAB WORK CP Reason for Visit Hypothyroidism Nonspecific chest pain Atherosclerotic heart disease of [place] coronary artery without angina pectoris Chest pressure Dizziness Dyspnea Essential hypertension Hyperlipidemia Chief Complaint INTERMEDIATE LABWORK INTERMEDIATE LABWORK Amb 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 INTERMEDIATE LABWORK INTERMEDIATE LAB WORK DYSPNEA *GRUPO* LABWORK INTERMEDIATE LAB WORK LABWORK INTERMEDIATE LABWORK INTERMEDIATE LABWORK INTERMEDIATE LAB WORK CP ER VISIT RETURN INTERMEDIATE LABWORK 3 M FU Reason for Visit Atherosclerotic hear t disease of [place] coronary artery without angina pectoris Chest pressure Dizziness Dyspnea Essential hypertension Hyperlipidemia Atherosclerotic heart disease of [place] coronary artery without angina pectoris Bilateral lower extremity edema Essential hypertension Hyperlipidemia Chief Complaint 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 consul t in ER INTERMEDIATE LABWORK INTERMEDIATE LAB WORK DYSPNEA *GRUPO* LABWORK INTERMEDIATE LAB WORK LABWORK INTERMEDIATE LABWORK INTERMEDIATE LABWORK INTERMEDIATE LAB WORK CP ER VISIT RETURN INTERMEDIATE LABWORK 3 M FU INTERMEDIATE LAB WORK abd pain Reason for Visit Atherosclerotic hear t disease of [place] coronary artery without angina pectoris Chest pressure Dizziness Dyspnea Essential hypertension Hyperlipidemia Atherosclerotic heart disease of [place] coronary artery without angina pectoris Bilateral lower extremity edema Essential hypertension Hyperlipidemia Chief Complaint INTERMEDIATE LAB WOR K DYSPNEA *GRUPO* LABWORK INTERMEDIATE LAB WORK LABWORK INTERMEDIATE LABWORK INTERMEDIATE LABWORK INTERMEDIATE LAB WORK CP ER VISIT RETURN INTERMEDIATE LABWORK MONTHLY EXAM 3 M FU INTERMEDIATE LABWORK INTERMEDIATE LAB WORK INTERMEDIATE LAB WORK abd pain MONTHLY VISIT INTERMEDIATE LAB WORK NEW CONCERN Reason for Visit Atherosclerotic hear t disease of [place] coronary artery without angina pectoris Bilateral lower extremity edema Essential hypertension Hyperlipidemia Chief Complaint LABWORK INTERMEDIATE LABWORK INTERMEDIATE LABWORK INTERMEDIATE LAB WORK CP ER VISIT RETURN INTERMEDIATE LABWORK MONTHLY EXAM 3 M FU INTERMEDIATE LABWORK INTERMEDIATE LAB WORK INTERMEDIATE LAB WORK abd pain MONTHLY VISIT INTERMEDIATE LAB WORK NEW CONCERN NEW PROBLEM/CONCERN chest pain Reason for Visit Atherosclerotic hear t disease of [place] coronary artery without angina pectoris Bilateral lower extremity edema Essential hypertension Hyperlipidemia Chief Complaint INTERMEDIATE LABWORK INTERMEDIATE LAB WORK CP ER VISIT RETURN INTERMEDIATE LABWORK MONTHLY EXAM 3 M FU INTERMEDIATE LABWORK INTERMEDIATE LAB WORK INTERMEDIATE LAB WORK abd pain MONTHLY VISIT INTERMEDIATE LAB WORK NEW CONCERN LABWORK NEW PROBLEM/CONCERN chest pain ER FOLLOW UP INTERMEDIATE LAB WORK Reason for Visit Atherosclerotic hear t disease of [place] coronary artery without angina pectoris Bilateral lower extremity edema Essential hypertension Hyperlipidemia Chief Complaint INTERMEDIATE LABWORK INTERMEDIATE LAB WORK CP ER VISIT RETURN INTERMEDIATE LABWORK MONTHLY EXAM 3 M FU INTERMEDIATE LABWORK INTERMEDIATE LAB WORK INTERMEDIATE LAB WORK abd pain MONTHLY VISIT INTERMEDIATE LAB WORK NEW CONCERN LABWORK NEW PROBLEM/CONCERN INTERMEDIATE LABWORK chest pain ER FOLLOW UP NEW CONCERN/PROBLEM INTERMEDIATE LAB WORK Reason for Visit Atherosclerotic hear t disease of [place] coronary artery without angina pectoris Bilateral lower extremity edema Essential hypertension Hyperlipidemia Chief Complaint INTERMEDIATE LAB WOR K CP ER VISIT RETURN INTERMEDIATE LABWORK MONTHLY EXAM 3 M FU INTERMEDIATE LABWORK INTERMEDIATE LAB WORK INTERMEDIATE LAB WORK abd pain MONTHLY VISIT INTERMEDIATE LAB WORK NEW CONCERN LABWORK NEW PROBLEM/CONCERN INTERMEDIATE LABWORK chest pain ER FOLLOW UP NEW CONCERN/PROBLEM INTERMEDIATE LAB WORK MONTHLY EXAM INTERMEDIATE LAB WORK Amb Documentation Reason for Visit Atherosclerotic hear t disease of [place] coronary artery without angina pectoris Bilateral lower extremity edema Essential hypertension Hyperlipidemia Chief Complaint 3 M FU INTERMEDIATE LABWORK INTERMEDIATE LAB WORK INTERMEDIATE LAB WORK abd pain MONTHLY VISIT INTERMEDIATE LAB WORK NEW CONCERN LABWORK NEW PROBLEM/CONCERN INTERMEDIATE LABWORK chest pain ER FOLLOW UP NEW CONCERN/PROBLEM INTERMEDIATE LAB WORK MONTHLY EXAM INTERMEDIATE LAB WORK INTERMEDIATE LAB WORK MONTHLY VISIT Amb Documentation INTERMEDIATE LABWORK NEW CONCERN RIGHT FLANK PAIN Reason for Visit Atherosclerotic hear t disease of [place] coronary artery without angina pectoris Bilateral lower extremity edema Essential hypertension Hyperlipidemia Chief Complaint 3 M FU INTERMEDIATE LABWORK INTERMEDIATE LAB WORK INTERMEDIATE LAB WORK abd pain MONTHLY VISIT INTERMEDIATE LAB WORK NEW CONCERN LABWORK NEW PROBLEM/CONCERN INTERMEDIATE LABWORK chest pain ER FOLLOW UP NEW CONCERN/PROBLEM INTERMEDIATE LAB WORK MONTHLY EXAM INTERMEDIATE LAB WORK INTERMEDIATE LAB WORK MONTHLY VISIT Amb Documentation INTERMEDIATE LABWORK NEW CONCERN RIGHT FLANK PAIN FLANK PAIN Reason for Visit Atherosclerotic hear t disease of [place] coronary artery without angina pectoris Bilateral lower extremity edema Essential hypertension Hyperlipidemia Chief Complaint INTERMEDIATE LAB WOR K abd pain MONTHLY VISIT INTERMEDIATE LAB WORK NEW CONCERN LABWORK NEW PROBLEM/CONCERN INTERMEDIATE LABWORK chest pain ER FOLLOW UP NEW CONCERN/PROBLEM INTERMEDIATE LAB WORK MONTHLY EXAM INTERMEDIATE LAB WORK INTERMEDIATE LAB WORK MONTHLY VISIT Amb Documentation INTERMEDIATE LABWORK NEW CONCERN INTERMEDIATE LAB WORK INTERMEDIATE LAB WORK NEW CONCERN/PROBLEM INTERMEDIATE LABWORK NEW CONCERNS INTERMEDIATE LAB WORK MONTHLY EXAM RIGHT FLANK PAIN FLANK PAIN NEW CONCERN NEW CONCERN Chief Complaint abd pain MONTHLY VISIT INTERMEDIATE LAB WORK NEW CONCERN LABWORK NEW PROBLEM/CONCERN INTERMEDIATE LABWORK chest pain ER FOLLOW UP NEW CONCERN/PROBLEM INTERMEDIATE LAB WORK MONTHLY EXAM INTERMEDIATE LAB WORK INTERMEDIATE LAB WORK MONTHLY VISIT Amb Documentation INTERMEDIATE LABWORK NEW CONCERN INTERMEDIATE LAB WORK INTERMEDIATE LAB WORK NEW CONCERN/PROBLEM INTERMEDIATE LABWORK NEW CONCERNS INTERMEDIATE LAB WORK MONTHLY EXAM RIGHT FLANK PAIN FLANK PAIN NEW CONCERN NEW CONCERN INTERMEDIATE LAB WORK HYPERSOMNIA Chief Complaint abd pain MONTHLY VISIT INTERMEDIATE LAB WORK NEW CONCERN LABWORK NEW PROBLEM/CONCERN INTERMEDIATE LABWORK chest pain ER FOLLOW UP NEW CONCERN/PROBLEM INTERMEDIATE LAB WORK MONTHLY EXAM INTERMEDIATE LAB WORK INTERMEDIATE LAB WORK MONTHLY VISIT Amb Documentation INTERMEDIATE LABWORK NEW CONCERN INTERMEDIATE LAB WORK INTERMEDIATE LAB WORK NEW CONCERN/PROBLEM INTERMEDIATE LABWORK NEW CONCERNS INTERMEDIATE LAB WORK MONTHLY EXAM RIGHT FLANK PAIN FLANK PAIN NEW CONCERN NEW CONCERN INTERMEDIATE LAB WORK HYPERSOMNIA CP Chief Complaint abd pain MONTHLY VISIT INTERMEDIATE LAB WORK NEW CONCERN LABWORK NEW PROBLEM/CONCERN INTERMEDIATE LABWORK chest pain ER FOLLOW UP NEW CONCERN/PROBLEM INTERMEDIATE LAB WORK MONTHLY EXAM INTERMEDIATE LAB WORK INTERMEDIATE LAB WORK MONTHLY VISIT Amb Documentation INTERMEDIATE LABWORK NEW CONCERN INTERMEDIATE LAB WORK INTERMEDIATE LAB WORK NEW CONCERN/PROBLEM INTERMEDIATE LABWORK NEW CONCERNS INTERMEDIATE LAB WORK MONTHLY EXAM RIGHT FLANK PAIN FLANK PAIN NEW CONCERN NEW CONCERN INTERMEDIATE LAB WORK INTERMEDIATE LABWORK HYPERSOMNIA CP Chief Complaint INTERMEDIATE LAB WOR K MONTHLY VISIT Amb Documentation INTERMEDIATE LABWORK NEW CONCERN INTERMEDIATE LAB WORK INTERMEDIATE LAB WORK NEW CONCERN/PROBLEM INTERMEDIATE LABWORK NEW CONCERNS INTERMEDIATE LAB WORK MONTHLY EXAM RIGHT FLANK PAIN FLANK PAIN NEW CONCERN NEW CONCERN INTERMEDIATE LAB WORK INTERMEDIATE LABWORK HYPERSOMNIA CP NEW CONCERN INTERMEDIATE LABWORK 5 MO F/U INTERMEDIATE LAB WORK INTERMEDIATE LABWORK INTERMEDIATE LABWORK Reason for Visit Atherosclerotic hear t disease of [place] coronary artery without angina pectoris Bilateral lower extremity edema Essential hypertension Hyperlipidemia Palpitations Chief Complaint INTERMEDIATE LAB WOR K MONTHLY VISIT Amb Documentation INTERMEDIATE LABWORK NEW CONCERN INTERMEDIATE LAB WORK INTERMEDIATE LAB WORK NEW CONCERN/PROBLEM INTERMEDIATE LABWORK NEW CONCERNS INTERMEDIATE LAB WORK MONTHLY EXAM RIGHT FLANK PAIN FLANK PAIN NEW CONCERN NEW CONCERN INTERMEDIATE LAB WORK INTERMEDIATE LABWORK HYPERSOMNIA CP NEW CONCERN INTERMEDIATE LABWORK 5 MO F/U INTERMEDIATE LAB WORK INTERMEDIATE LABWORK INTERMEDIATE LABWORK constipation Reason for Visit Atherosclerotic hear t disease of [place] coronary artery without angina pectoris Bilateral lower extremity edema Essential hypertension Hyperlipidemia Palpitations Chief Complaint 5 MO F/U INTERMEDIATE LAB WORK INTERMEDIATE LABWORK MONTHLY EXAM INTERMEDIATE LABWORK NEW CONCERN constipation ABD PAIN Reason for Visit Atherosclerotic hear t disease of [place] coronary artery without angina pectoris Bilateral lower extremity edema Essential hypertension Hyperlipidemia Palpitations Chief Complaint 5 MO F/U INTERMEDIATE LAB WORK INTERMEDIATE LABWORK MONTHLY EXAM INTERMEDIATE LABWORK NEW CONCERN constipation ABD PAIN General illness Reason for Visit Atherosclerotic hear t disease of [place] coronary artery without angina pectoris Bilateral lower extremity edema Essential hypertension Hyperlipidemia Palpitations Chief Complaint 5 MO F/U INTERMEDIATE LAB WORK INTERMEDIATE LABWORK MONTHLY EXAM INTERMEDIATE LABWORK NEW CONCERN constipation ABD PAIN General illness constipation Reason for Visit Atherosclerotic hear t disease of [place] coronary artery without angina pectoris Bilateral lower [...] hyperglycemia hyperglycemia hyperglycemia hyperglycemia hyperglycemia ADMISSION EXAM MOTOR BLOCK MECHANIC LABWORK ADMISSION EXAM MD LABWORK LABWORK LABWORK INTERMEDIATE LAB WORK LABWORK BL PE, CHEST PAIN BL PE, CHEST PAIN BL PE, CHEST PAIN BL PE, CHEST PAIN BL PE, CHEST PAIN Reason for Visit Diarrhea Acute leg pain Diabetes mellitus with hyperglycemia Nausea Chest pressure Chief Complaint hyperglycemia hyperglycemia hyperglycemia hyperglycemia hyperglycemia hyperglycemia hyperglycemia ADMISSION EXAM MOTOR BLOCK MECHANIC LABWORK ADMISSION EXAM MD LABWORK LABWORK LABWORK INTERMEDIATE LAB WORK LABWORK BL PE, CHEST PAIN BL PE, CHEST PAIN BL PE, CHEST PAIN BL PE, CHEST PAIN BL PE, CHEST PAIN chest pain Reason for Visit Diarrhea Acute leg pain Diabetes mellitus with hyperglycemia Nausea Chest pressure Chief Complaint hyperglycemia hyperglycemia hyperglycemia hyperglycemia hyperglycemia hyperglycemia hyperglycemia ADMISSION EXAM MOTOR BLOCK MECHANIC LABWORK ADMISSION EXAM MD LABWORK LABWORK LABWORK INTERMEDIATE LAB WORK NEW CONCERN LABWORK BL PE, CHEST PAIN BL PE, CHEST PAIN BL PE, CHEST PAIN BL PE, CHEST PAIN BL PE, CHEST PAIN LABWORK LAB WORK LABWORK LABWORK LAB WORK chest pain LABWORK LABWORK MONTHLY EXAM INTERMEDIATE LAB WORK LABWORK INTERMEDIATE LAB WORK LABWORK Reason for Visit Diarrhea Acute leg pain Diabetes mellitus with hyperglycemia Nausea Chest pressure Chief Complaint Admit Date MONTHLY EXAM September 26, 2024 1 1:30pm LABWORK September 29, 2024 5 :00am LABWORK October 06, 2024 5:00am RT BREAST PAIN October 06, 2024 2:19pm INTERMEDIATE LAB WORK October 13 4:00am INTERMEDIATE LAB WORK October 20 5:00am abd pain October 24, 2024 11:08am INTERMEDIATE LAB WORK October 27, 2024 5:00am MONTHLY VISIT October 27, 2024 5: 39pm LABWORK November 01, 2024 5: 07am LABWORK November 03, 2024 5 :04am LABWORK November 10, 2024 5 :00am LABWORK November 17, 2024 5 :00am LABWORK November 24, 2024 5 :00am MONTHLY EXAM November 28, 2024 9 :33pm INTERMEDIATE LAB WORK November 30, 2024 5:00am LABWORK December 07, 2024 8:00pm LABWORK January 05, 2025 5:0 0am CP January 22, 2025 10: 39am Chief Complaint Admit Date LABWORK September 29, 2024 5 :00am LABWORK October 06, 2024 5:00am RT BREAST PAIN October 06, 2024 2:19pm INTERMEDIATE LAB WORK October 13 4:00am INTERMEDIATE LAB WORK October 20 5:00am abd pain October 24, 2024 11:08am INTERMEDIATE LAB WORK October 27, 2024 5:00am MONTHLY VISIT October 27, 2024 5: 39pm LABWORK November 01, 2024 5: 07am LABWORK November 03, 2024 5 :04am LABWORK November 10, 2024 5 :00am LABWORK November 17, 2024 5 :00am LABWORK November 24, 2024 5 :00am MONTHLY EXAM November 28, 2024 9 :33pm INTERMEDIATE LAB WORK November 30, 2024 5:00am LABWORK December 07, 2024 8:00pm MONTHLY EXAM January 04, 2025 10: 31am LABWORK January 05, 2025 5:0 0am CP January 22, 2025 10: 39am ACUTE CARE VISIT January 22, 2025 4:0 1pm Chief Complaint Admit Date MONTHLY EXAM November 28, 2024 9 :33pm INTERMEDIATE LAB WORK November 30, 2024 5:00am LABWORK December 07, 2024 8:00pm MONTHLY EXAM January 04, 2025 10: 31am LABWORK January 05, 2025 5:0 0am CP January 22, 2025 10: 39am ACUTE CARE VISIT January 22, 2025 4:0 1pm MONTHLY EXAM January 23, 2025 5:48 pm Chest pain January 30, 2025 1:52 pm INTERMEDIATE LAB WORK March 12, 2025 4:0 0am Reason for Visit Admit Date 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 January 30, 2025 1:52pm Essential hypertension January 30, 2025 1 :52pm Hyperlipidemia January 30, 2025 1:52 pm Chest pain January 30, 2025 1:52 pm Chief Complaint Admit Date January 22, 2025 10: 39am ACUTE CARE VISIT January 22, 2025 4:0 1pm MONTHLY EXAM January 23, 2025 5:48 pm Chest pain January 30, 2025 1:52 pm INTERMEDIATE LAB WORK March 05, 2025 5:0 0am INTERMEDIATE LAB WORK March 12, 2025 4:0 0am NEW CONCERN March 13, 2025 5:30p m INTERMEDIATE LAB WORK March 29, 2025 5:0 0am INTERMEDIATE LAB WORK April 06, 2025 5: 00am INTERMEDIATE LAB WORK April 12, 2025 2: 50pm Chief Complaint Admit Date January 22, 2025 10: 39am ACUTE CARE VISIT January 22, 2025 4:0 1pm MONTHLY EXAM January 23, 2025 5:48 pm Chest pain January 30, 2025 1:52 pm INTERMEDIATE LAB WORK March 05, 2025 5:0 0am INTERMEDIATE LAB WORK March 12, 2025 4:0 0am NEW CONCERN March 13, 2025 5:30p m MONTHLY EXAM March 27, 2025 6:00p m INTERMEDIATE LAB WORK March 29, 2025 5:0 0am INTERMEDIATE LAB WORK April 06, 2025 5: 00am INTERMEDIATE LAB WORK April 12, 2025 2: 50pm LABWORK April 25, 2025 5:00a m Chief Complaint Admit Date CP January 22, 2025 10: 39am ACUTE CARE VISIT January 22, 2025 4:0 1pm MONTHLY EXAM January 23, 2025 5:48 pm Chest pain January 30, 2025 1:52 pm INTERMEDIATE LAB WORK March 05, 2025 5:0 0am INTERMEDIATE LAB WORK March 12, 2025 4:0 0am NEW CONCERN March 13, 2025 5:30p m MONTHLY EXAM March 27, 2025 6:00p m INTERMEDIATE LAB WORK March 29, 2025 5:0 0am INTERMEDIATE LAB WORK April 06, 2025 5: 00am NEW CONCERN April 12, 2025 10:1 5am INTERMEDIATE LAB WORK April 12, 2025 2: 50pm LABWORK April 25, 2025 5:00a m Chief Complaint Admit Date CP January 22, 2025 10: 39am ACUTE CARE VISIT January 22, 2025 4:0 1pm MONTHLY EXAM January 23, 2025 5:48 pm Chest pain January 30, 2025 1:52 pm INTERMEDIATE LAB WORK March 05, 2025 5:0 0am INTERMEDIATE LAB WORK March 12, 2025 4:0 0am NEW CONCERN March 13, 2025 5:30p m MONTHLY EXAM March 27, 2025 6:00p m INTERMEDIATE LAB WORK March 29, 2025 5:0 0am INTERMEDIATE LAB WORK April 06, 2025 5: 00am NEW CONCERN April 12, 2025 10:1 5am INTERMEDIATE LAB WORK April 12, 2025 2: 50pm FU EXAM April 20, 2025 3:15 pm LABWORK April 25, 2025 5:00a m Chief Complaint Admit Date MONTHLY EXAM January 23, 2025 5:48 pm Chest pain January 30, 2025 1:52 pm MONTHLY VISIT February 26, 2025 4:06pm INTERMEDIATE LAB WORK March 05, 2025 5:0 0am INTERMEDIATE LAB WORK March 12, 2025 4:0 0am NEW CONCERN March 13, 2025 5:30p m MONTHLY EXAM March 27, 2025 6:00p m INTERMEDIATE LAB WORK March 29, 2025 5:0 0am INTERMEDIATE LAB WORK April 06, 2025 5: 00am NEW CONCERN April 12, 2025 10:1 5am INTERMEDIATE LAB WORK April 12, 2025 2: 50pm FU EXAM April 20, 2025 3:15 pm LABWORK April 25, 2025 5:00a m LABWORK May 07, 2025 5:00 am Chief Complaint Admit Date MONTHLY EXAM January 23, 2025 5:48 pm Chest pain January 30, 2025 1:52 pm MONTHLY VISIT February 26, 2025 4:06pm INTERMEDIATE LAB WORK March 05, 2025 5:0 0am NEW CONCERN March 05, 2025 3:46p m INTERMEDIATE LAB WORK March 12, 2025 4:0 0am NEW CONCERN March 13, 2025 5:30p m MONTHLY EXAM March 27, 2025 6:00p m INTERMEDIATE LAB WORK March 29, 2025 5:0 0am INTERMEDIATE LAB WORK April 06, 2025 5: 00am NEW CONCERN April 12, 2025 10:1 5am INTERMEDIATE LAB WORK April 12, 2025 2: 50pm FU EXAM April 20, 2025 3:15 pm LABWORK April 25, 2025 5:00a m LABWORK May 07, 2025 5:00 am Chief Complaint Admit Date MONTHLY EXAM January 23, 2025 5:48 pm Chest pain January 30, 2025 1:52 pm MONTHLY VISIT February 26, 2025 4:06pm INTERMEDIATE LAB WORK March 05, 2025 5:0 0am NEW CONCERN March 05, 2025 3:46p m NEW CONCERN March 08, 2025 5:24p m INTERMEDIATE LAB WORK March 12, 2025 4:0 0am NEW CONCERN March 13, 2025 5:30p m MONTHLY EXAM March 27, 2025 6:00p m INTERMEDIATE LAB WORK March 29, 2025 5:0 0am INTERMEDIATE LAB WORK April 06, 2025 5: 00am NEW CONCERN April 12, 2025 10:1 5am INTERMEDIATE LAB WORK April 12, 2025 2: 50pm FU EXAM April 20, 2025 3:15 pm LABWORK April 25, 2025 5:00a m LABWORK May 07, 2025 5:00 am Chief Complaint Admit Date Chest pain January 30, 2025 1:52 pm MONTHLY VISIT February 26, 2025 4:06pm INTERMEDIATE LAB WORK March 05, 2025 5:0 0am NEW CONCERN March 05, 2025 3:46p m NEW CONCERN March 08, 2025 5:24p m INTERMEDIATE LAB WORK March 12, 2025 4:0 0am NEW CONCERN March 13, 2025 5:30p m MONTHLY EXAM March 27, 2025 6:00p m INTERMEDIATE LAB WORK March 29, 2025 5:0 0am INTERMEDIATE LAB WORK April 06, 2025 5: 00am NEW CONCERN April 12, 2025 10:1 5am INTERMEDIATE LAB WORK April 12, 2025 2: 50pm FU EXAM April 20, 2025 3:15 pm LABWORK April 25, 2025 5:00a m LABWORK May 07, 2025 5:00 am R facial swelling, eye blurriness May 26, 2025 12:25am Chief Complaint Admit Date Chest pain January 30, 2025 1:52 pm MONTHLY VISIT February 26, 2025 4:06pm INTERMEDIATE LAB WORK March 05, 2025 5:0 0am NEW CONCERN March 05, 2025 3:46p m NEW CONCERN March 08, 2025 5:24p m INTERMEDIATE LAB WORK March 12, 2025 4:0 0am NEW CONCERN March 13, 2025 5:30p m MONTHLY EXAM March 27, 2025 6:00p m INTERMEDIATE LAB WORK March 29, 2025 5:0 0am INTERMEDIATE LAB WORK April 06, 2025 5: 00am NEW CONCERN April 12, 2025 10:1 5am INTERMEDIATE LAB WORK April 12, 2025 2: 50pm FU EXAM April 20, 2025 3:15 pm LABWORK April 25, 2025 5:00a m LABWORK May 07, 2025 5:00 am R facial swelling, eye blurriness May 26, 2025 12:25am FACE CELLULITIS W/FAILED OUTPATIENT ABX May 28, 2025 11:34am Reason for Visit Admit Date 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 January 30, 2025 1:52pm Essential hypertension January 30, 2025 1 :52pm Hyperlipidemia January 30, 2025 1:52 pm Chest pain January 30, 2025 1:52 pm Infected lip laceration May 28, 2025 11:34am Chief Complaint Admit Date MONTHLY VISIT February 26, 2025 4:06pm INTERMEDIATE LAB WORK March 05, 2025 5:0 0am NEW CONCERN March 05, 2025 3:46p m NEW CONCERN March 08, 2025 5:24p m INTERMEDIATE LAB WORK March 12, 2025 4:0 0am NEW CONCERN March 13, 2025 5:30p m MONTHLY EXAM March 27, 2025 6:00p m INTERMEDIATE LAB WORK March 29, 2025 5:0 0am INTERMEDIATE LAB WORK April 06, 2025 5: 00am NEW CONCERN April 12, 2025 10:1 5am INTERMEDIATE LAB WORK April 12, 2025 2: 50pm [...] Date MONTHLY VISIT February 26, 2025 4:06pm INTERMEDIATE LAB WORK March 05, 2025 5:0 0am NEW CONCERN March 05, 2025 3:46p m NEW CONCERN March 08, 2025 5:24p m INTERMEDIATE LAB WORK March 12, 2025 4:0 0am NEW CONCERN March 13, 2025 5:30p m MONTHLY EXAM March 27, 2025 6:00p m INTERMEDIATE LAB WORK March 29, 2025 5:0 0am INTERMEDIATE LAB WORK April 06, 2025 5: 00am NEW CONCERN April 12, 2025 10:1 5am INTERMEDIATE LAB WORK April 12, 2025 2: 50pm [...] Date MONTHLY VISIT February 26, 2025 4:06pm INTERMEDIATE LAB WORK March 05, 2025 5:0 0am NEW CONCERN March 05, 2025 3:46p m NEW CONCERN March 08, 2025 5:24p m INTERMEDIATE LAB WORK March 12, 2025 4:0 0am NEW CONCERN March 13, 2025 5:30p m MONTHLY EXAM March 27, 2025 6:00p m INTERMEDIATE LAB WORK March 29, 2025 5:0 0am INTERMEDIATE LAB WORK April 06, 2025 5: 00am NEW CONCERN April 12, 2025 10:1 5am INTERMEDIATE LAB WORK April 12, 2025 2: 50pm [...] Date MONTHLY VISIT February 26, 2025 4:06pm INTERMEDIATE LAB WORK March 05, 2025 5:0 0am NEW CONCERN March 05, 2025 3:46p m NEW CONCERN March 08, 2025 5:24p m INTERMEDIATE LAB WORK March 12, 2025 4:0 0am NEW CONCERN March 13, 2025 5:30p m MONTHLY EXAM March 27, 2025 6:00p m INTERMEDIATE LAB WORK March 29, 2025 5:0 0am INTERMEDIATE LAB WORK April 06, 2025 5: 00am NEW CONCERN April 12, 2025 10:1 5am INTERMEDIATE LAB WORK April 12, 2025 2: 50pm [...] Date MONTHLY VISIT February 26, 2025 4:06pm INTERMEDIATE LAB WORK March 05, 2025 5:0 0am NEW CONCERN March 05, 2025 3:46p m NEW CONCERN March 08, 2025 5:24p m INTERMEDIATE LAB WORK March 12, 2025 4:0 0am NEW CONCERN March 13, 2025 5:30p m MONTHLY EXAM March 27, 2025 6:00p m INTERMEDIATE LAB WORK March 29, 2025 5:0 0am INTERMEDIATE LAB WORK April 06, 2025 5: 00am NEW CONCERN April 12, 2025 10:1 5am INTERMEDIATE LAB WORK April 12, 2025 2: 50pm [...] Date MONTHLY VISIT February 26, 2025 4:06pm INTERMEDIATE LAB WORK March 05, 2025 5:0 0am NEW CONCERN March 05, 2025 3:46p m NEW CONCERN March 08, 2025 5:24p m INTERMEDIATE LAB WORK March 12, 2025 4:0 0am NEW CONCERN March 13, 2025 5:30p m MONTHLY EXAM March 27, 2025 6:00p m INTERMEDIATE LAB WORK March 29, 2025 5:0 0am INTERMEDIATE LAB WORK April 06, 2025 5: 00am NEW CONCERN April 12, 2025 10:1 5am INTERMEDIATE LAB WORK April 12, 2025 2: 50pm [...] Date MONTHLY VISIT February 26, 2025 4:06pm INTERMEDIATE LAB WORK March 05, 2025 5:0 0am NEW CONCERN March 05, 2025 3:46p m NEW CONCERN March 08, 2025 5:24p m INTERMEDIATE LAB WORK March 12, 2025 4:0 0am NEW CONCERN March 13, 2025 5:30p m MONTHLY EXAM March 27, 2025 6:00p m INTERMEDIATE LAB WORK March 29, 2025 5:0 0am INTERMEDIATE LAB WORK April 06, 2025 5: 00am NEW CONCERN April 12, 2025 10:1 5am INTERMEDIATE LAB WORK April 12, 2025 2: 50pm [...] Date MONTHLY VISIT February 26, 2025 4:06pm INTERMEDIATE LAB WORK March 05, 2025 5:0 0am NEW CONCERN March 05, 2025 3:46p m NEW CONCERN March 08, 2025 5:24p m INTERMEDIATE LAB WORK March 12, 2025 4:0 0am NEW CONCERN March 13, 2025 5:30p m MONTHLY EXAM March 27, 2025 6:00p m INTERMEDIATE LAB WORK March 29, 2025 5:0 0am INTERMEDIATE LAB WORK April 06, 2025 5: 00am NEW CONCERN April 12, 2025 10:1 5am INTERMEDIATE LAB WORK April 12, 2025 2: 50pm [...] Date MONTHLY VISIT February 26, 2025 4:06pm INTERMEDIATE LAB WORK March 05, 2025 5:0 0am NEW CONCERN March 05, 2025 3:46p m NEW CONCERN March 08, 2025 5:24p m INTERMEDIATE LAB WORK March 12, 2025 4:0 0am NEW CONCERN March 13, 2025 5:30p m MONTHLY EXAM March 27, 2025 6:00p m INTERMEDIATE LAB WORK March 29, 2025 5:0 0am INTERMEDIATE LAB WORK April 06, 2025 5: 00am NEW CONCERN April 12, 2025 10:1 5am INTERMEDIATE LAB WORK April 12, 2025 2: 50pm [...] 1: 35pm Chief Complaint Admit Date MONTHLY EXAM March 27, 2025 6:00p m INTERMEDIATE LAB WORK March 29, 2025 5:0 0am INTERMEDIATE LAB WORK April 06, 2025 5: 00am NEW CONCERN April 12, 2025 10:1 5am INTERMEDIATE LAB WORK April 12, 2025 2: 50pm [...] POST OP June 07, 2025 9: 32am INTERMEDIATE LAB WORK June 11, 2025 5:00am 1 W FU June 15, 2025 1: 35pm INTERMEDIATE LAB WORK June 28 5:00am LABWOKR July 06, 2025 5:00am LUMBAR RAD July 06, 2025 12:54pm ABDOMINAL HERNIA July 17, 2025 8:33am Reason for Visit Admit Date Abscess of lip May 28, 2025 11: 34am History of diabetes mellitus May 28, 2025 11:34am Infected lip laceration May 28, 2025 11:34am Abscess of lip June 07, 2025 9: 32am Abscess of lip June 15, 2025 1: 35pm Ventral hernia without obstruction or ga ngrene July 17, 2025 8:33am Chief Complaint Admit Date INTERMEDIATE LAB WORK March 29, 2025 5:0 0am INTERMEDIATE LAB WORK April 06, 2025 5: 00am NEW CONCERN April 12, 2025 10:1 5am INTERMEDIATE LAB WORK April 12, 2025 2: 50pm [...] POST OP June 07, 2025 9: 32am INTERMEDIATE LAB WORK June 11, 2025 5:00am 1 W FU June 15, 2025 1: 35pm INTERMEDIATE LAB WORK June 28 5:00am LABWOKR July 06, 2025 5:00am LUMBAR RAD July 06, 2025 12:54pm ABDOMINAL HERNIA July 17, 2025 8:33am CP July 26, 2025 6: 23am Chief Complaint Admit Date LABWORK April 25, 2025 5:00a m Follow-up [...] POST OP June 07, 2025 9: 32am INTERMEDIATE LAB WORK June 11, 2025 5:00am 1 W FU June 15, 2025 1: 35pm INTERMEDIATE LAB WORK June 28 5:00am LABWOKR July 06, 2025 5:00am LUMBAR RAD July 06, 2025 12:54pm MONTHLY VISIT July 06, 2025 3:51pm ABDOMINAL HERNIA July 17, 2025 8:33am INTERMEDIATE LAB WORK July 26, 2025 5:00am CP July 26, 2025 6: 23am CP July 30, 2025 4: 14pm Reason for Referral Specialty Diagnoses / Procedures Referred By Contac t Referred To Contact Podiatry Diagnoses Diabetic polyneuropathy associated with type 2 diabetes mellitus (HCC) Procedures CONSULT TO PODIATRY OFFICE/OUTPATIENT [facility] 60-[place] [address] [place] [id number] Referral ID Status Reason Start Date Expiration Date Visits Requested Visits Authorized [id number] Pending Review PCP Requested Referral 04/07/2023 04/06/2024 1 1 Specialty Diagnoses / Procedures Referred By Contac t Referred To Contact General Surgery Diagnoses Globus sensation Screening for colon cancer Procedures CONSULT TO GENERAL SURGERY OFFICE/OUTPATIENT [facility] 60-[place] [address] [place] [id number] Referral ID Status Reason Start Date Expiration Date Visits Requested Visits Authorized [id number] Pending Review PCP Requested Referral 04/07/2023 04/06/2024 1 1 Specialty Diagnoses / Procedures Referred By Contac t Referred To Contact Ophthalmology Diagnoses Diabetes mellitus type 2 with neurological manifestations (HCC) Change in vision Procedures CONSULT TO OPHTHALMOLOGY OFFICE/OUTPATIENT [facility] 60-74 MINUTES Dwayne Lopez MD [address] [place] [id number] Referral ID Status Reason Start Date Expiration Date Visits Requested Visits Authorized [id number] Pending Review PCP Requested Referral 04/07/2023 04/06/2024 1 1 Additional Source Comments INFORMATION SOURCE (unrecogn ized section and content) DATE CREATED AUTHOR 04/13/2018 Nisa Ram [facility] DATE CREATED AUTHOR AUTHOR'S ORGANIZ ATION 04/14/2018 [facility] DATE CREATED AUTHOR AUTHOR'S ORGANIZ ATION 10/05/2018 [facility] ntedis Lindsay DATE CREATED AUTHOR AUTHOR'S ORGANIZ ATION 10/19/2019 [facility] DATE CREATED AUTHOR AUTHOR'S ORGANIZ ATION 09/28/2020 [facility] ([place]) DATE CREATED AUTHOR AUTHOR'S ORGANIZ ATION 09/05/2025 [facility] DATE CREATED AUTHOR AUTHOR'S ORGANIZ ATION 09/06/2025 [facility] Goals (unrecognized section and content) Goals [...] any alcohol or drug abuse patient.[facility] CenterIn the event this information is protected by the Federal Confidentiality of Alcohol and Drug Abuse Patient Records regulations: The Federal rules restrict any use of the information to criminally investigate or prosecute any alcohol or drug abuse patient.[facility] CenterIn the event this information is protected by the Federal Confidentiality of Alcohol and Drug Abuse Patient Records regulations: The Federal rules restrict any use of the information to criminally investigate or prosecute any alcohol or drug abuse patient.[facility] CenterIn the event this information is protected by the Federal Confidentiality of Alcohol and Drug Abuse Patient Records regulations: The Federal rules restrict any use of the information to criminally investigate or prosecute any alcohol or drug abuse patient.[facility] CenterIn the event this information is protected by the Federal Confidentiality of Alcohol and Drug Abuse Patient Records regulations: The Federal rules restrict any use of the information to criminally investigate or prosecute any alcohol or drug abuse patient.[facility] CenterIn the event this information is protected by the Federal Confidentiality of Alcohol and Drug Abuse Patient Records regulations: The Federal rules restrict any use of the information to criminally investigate or prosecute any alcohol or drug abuse patient.[facility] CenterIn the event this information is protected by the Federal Confidentiality of Alcohol and Drug Abuse Patient Records regulations: The Federal rules restrict any use of the information to criminally investigate or prosecute any alcohol or drug abuse patient.[facility] CenterIn the event this information is protected by the Federal Confidentiality of Alcohol and Drug Abuse Patient Records regulations: The Federal rules restrict any use of the information to criminally investigate or prosecute any alcohol or drug abuse patient.[facility] CenterIn the event this information is protected by the Federal Confidentiality of Alcohol and Drug Abuse Patient Records regulations: The Federal rules restrict any use of the information to criminally investigate or prosecute any alcohol or drug abuse patient.[facility] CenterIn the event this information is protected by the Federal Confidentiality of Alcohol and Drug Abuse Patient Records regulations: The Federal rules restrict any use of the information to criminally investigate or prosecute any alcohol or drug abuse patient.[facility] CenterIn the event this information is protected by the Federal Confidentiality of Alcohol and Drug Abuse Patient Records regulations: The Federal rules restrict any use of the information to criminally investigate or prosecute any alcohol or drug abuse patient.[facility] CenterIn the event this information is protected by the Federal Confidentiality of Alcohol and Drug Abuse Patient Records regulations: The Federal rules restrict any use of the information to criminally investigate or prosecute any alcohol or drug abuse patient.[facility] CenterIn the event this information is protected by the Federal Confidentiality of Alcohol and Drug Abuse Patient Records regulations: The Federal rules restrict any use of the information to criminally investigate or prosecute any alcohol or drug abuse patient.[facility] CenterIn the event this information is protected by the Federal Confidentiality of Alcohol and Drug Abuse Patient Records regulations: The Federal rules restrict any use of the information to criminally investigate or prosecute any alcohol or drug abuse patient.[facility] CenterIn the event this information is protected by the Federal Confidentiality of Alcohol and Drug Abuse Patient Records regulations: The Federal rules restrict any use of the information to criminally investigate or prosecute any alcohol or drug abuse patient.[facility] CenterIn the event this information is protected by the Federal Confidentiality of Alcohol and Drug Abuse Patient Records regulations: The Federal rules restrict any use of the information to criminally investigate or prosecute any alcohol or drug abuse patient.[facility] CenterIn the event this information is protected by the Federal Confidentiality of Alcohol and Drug Abuse Patient Records regulations: The Federal rules restrict any use of the information to criminally investigate or prosecute any alcohol or drug abuse patient.[facility] CenterIn the event this information is protected by the Federal Confidentiality of Alcohol and Drug Abuse Patient Records regulations: The Federal rules restrict any use of the information to criminally investigate or prosecute any alcohol or drug abuse patient.[facility] CenterIn the event this information is protected by the Federal Confidentiality of Alcohol and Drug Abuse Patient Records regulations: The Federal rules restrict any use of the information to criminally investigate or prosecute any alcohol or drug abuse patient.[facility] CenterIn the event this information is protected by the Federal Confidentiality of Alcohol and Drug Abuse Patient Records regulations: The Federal rules restrict any use of the information to criminally investigate or prosecute any alcohol or drug abuse patient.[facility] CenterIn the event this information is protected by the Federal Confidentiality of Alcohol and Drug Abuse Patient Records regulations: The Federal rules restrict any use of the information to criminally investigate or prosecute any alcohol or drug abuse patient.[facility] CenterIn the event this information is protected by the Federal Confidentiality of Alcohol and Drug Abuse Patient Records regulations: The Federal rules restrict any use of the information to criminally investigate or prosecute any alcohol or drug abuse patient.[facility] CenterIn the event this information is protected by the Federal Confidentiality of Alcohol and Drug Abuse Patient Records regulations: The Federal rules restrict any use of the information to criminally investigate or prosecute any alcohol or drug abuse patient.[facility] CenterIn the event this information is protected by the Federal Confidentiality of Alcohol and Drug Abuse Patient Records regulations: The Federal rules restrict any use of the information to criminally investigate or prosecute any alcohol or drug abuse patient.[facility] CenterIn the event this information is protected by the Federal Confidentiality of Alcohol and Drug Abuse Patient Records regulations: The Federal rules restrict any use of the information to criminally investigate or prosecute any alcohol or drug abuse patient.[facility] CenterIn the event this information is protected by the Federal Confidentiality of Alcohol and Drug Abuse Patient Records regulations: The Federal rules restrict any use of the information to criminally investigate or prosecute any alcohol or drug abuse patient.[facility] CenterIn the event this information is protected by the Federal Confidentiality of Alcohol and Drug Abuse Patient Records regulations: The Federal rules restrict any use of the information to criminally investigate or prosecute any alcohol or drug abuse patient.[facility] CenterIn the event this information is protected by the Federal Confidentiality of Alcohol and Drug Abuse Patient Records regulations: The Federal rules restrict any use of the information to criminally investigate or prosecute any alcohol or drug abuse patient.[facility] CenterIn the event this information is protected by the Federal Confidentiality of Alcohol and Drug Abuse Patient Records regulations: The Federal rules restrict any use of the information to criminally investigate or prosecute any alcohol or drug abuse patient.[facility] CenterIn the event this information is protected by the Federal Confidentiality of Alcohol and Drug Abuse Patient Records regulations: The Federal rules restrict any use of the information to criminally investigate or prosecute any alcohol or drug abuse patient.[facility] CenterIn the event this information is protected by the Federal Confidentiality of Alcohol and Drug Abuse Patient Records regulations: The Federal rules restrict any use of the information to criminally investigate or prosecute any alcohol or drug abuse patient.[facility] CenterIn the event this information is protected by the Federal Confidentiality of Alcohol and Drug Abuse Patient Records regulations: The Federal rules restrict any use of the information to criminally investigate or prosecute any alcohol or drug abuse patient.[facility] CenterIn the event this information is protected by the Federal Confidentiality of Alcohol and Drug Abuse Patient Records regulations: The Federal rules restrict any use of the information to criminally investigate or prosecute any alcohol or drug abuse patient.[facility] Reason for Visit (unrecogniz ed [...] Date Comments Population Health Navigation Outreach 08/18/2023 [place] care gaps Reason Onset Date Comments Refill [...] Date Comments Population Health Navigation Outreach 02/17/2024 [place] CC MA 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 - AWV, Care gaps, HCC gap closure - [place] [facility] Reason Onset Date Comments Refill Request 03/21/2024 Reason Onset Date Comments ACM TIARA RN 04/06/2024 Reason Onset Date Comments Population Health Navigation Outreach 09/08/2024 [place] No PCP Reason Onset Date Comments Population Health Navigation Outreach 11/29/2024 [employer] workbench ronnie Reason Onset Date Comments Allied Health Visit 01/05/2025 Medication A dherence Outreach Reason Onset Date Comments Population Health Navigation Outreach 03/20/2025 [employer] Work[employer] Ronnie Reason Onset Date Comments Diabetes 03/21/2025 Care Teams (unrecognized sec tion and content) Team Status: Active Member Role Status Dates Dr. Carlee Valencia III, MD Family Provider Active Dr. Lizet Linares MD Primary Care Provider Active Team Status: Inactive Member Role Status Dates Dr. Ganesh Garcia MD Primary Care Provider, Referrin g Provider Active Miriam Cameron MOTOR BLOCK MECHANIC, MOTOR BLOCK MECHANIC-C Attending Provider Active Team Status: Inactive Member Role Status Dates Dr. Ganesh Garcia MD Primary Care Provider Active Ana Maria Geller MOTOR BLOCK MECHANIC, MOTOR BLOCK MECHANIC-C Attending Provider Active Team Status: Inactive Member Role Status Dates Dr. Lizet Linares MD Primary Care Provider, Atten ding Provider Active Team Status: Inactive Member Role Status Dates Dr. Lizet Linares MD Primary Care Provider Active Ana Maria Geller MOTOR BLOCK MECHANIC, MOTOR BLOCK MECHANIC-C Attending Provider Active Team Status: Inactive Member [...] Linares MD Primary Care Provider Active Ganesh NOLACSO MD Attending Provider Active Team Status: Inactive Member Role Status Dates Dr. Lizet Linares MD Primary Care Provider Active Dr. Olena Govea DO Emergency Provider Active Team Status: Inactive Member Role Status Dates Dr. Lizte Linares MD Primary Care Provider Active Dr. [...] Primary Care Provider Active Ana Maria Geller MOTOR BLOCK MECHANIC, MOTOR BLOCK MECHANIC-C Attending Provider, Referring Provider Active Team Status: Inactive Member Role Status Dates Dr. Lizet Linares MD Primary Care Provider Active Ana Maria Geller MOTOR BLOCK MECHANIC, MOTOR BLOCK MECHANIC-C Attending Provider, Referring Provider Active Team Status: Inactive Member Role Status Dates Dr. Lizet Linares MD Primary Care Provider Active Dr. Marck Dunn DO Emergency Provider Active Team Status: Inactive Member Role Status Dates Dr. Lizet Linares MD Primary Care Provider Active Ganesh NOLASCO MD Attending Provider Active Senior Business Manager Relationship Specialty Start Date End Date Dwayne Lopez MD [address] [place] [address] PCP - General Family Medicine 03/24/23 Team Status: Inactive Member Role Status Dates Dr. Ganesh Garcia MD Referring Provider Active Miriam Cameron MOTOR BLOCK MECHANIC, MOTOR BLOCK MECHANIC-C Attending Provider Active Dr. Lizet Linares MD Primary Care Provider Active Team Status: Inactive Member Role Status Dates Dr. Lizet Linares MD Primary Care Provider Active Dr. Marck Dunn DO Attending Provider, Emergency P rovisarai Active Team Status: Inactive Member Role Status Dates Dr. Lizet Linares MD Primary Care Provider Active Dr. Jacqueline Renteria MD Attending Provider, Referring Pr ovider Active Team Status: Inactive Member Role Status Dates Dr. Lizet Linares MD Primary Care Provider Active Ellis Peterson MD Emergency Provider Active Senior Business Manager Relationship Specialty Start Date End Date Dwayne Lopez MD [address] [place] [address] PCP - General Family Medicine 03/24/23 Senior Business Manager Relationship Specialty Start Date End Date Dwayne Lopez MD [address] [place] [address] PCP - General Family Medicine 03/24/23 Senior Business Manager Relationship Specialty Start Date End Date Dwayne Lopez MD [address] [facility] [place] [address] PCP - General Family Medicine 03/24/23 Senior Business Manager Relationship Specialty Start Date End Date Dwayne Lopez MD [address] [facility] [place] [address] PCP - General Family Medicine 03/24/23 Senior Business Manager Relationship Specialty Start Date End Date Dwayne Lopez MD [address] [facility] [place] [address] PCP - General Family Medicine 03/24/23 Senior Business Manager Relationship Specialty Start Date End Date Dwayne Lopez MD [address] [facility] [place], [place] [address] PCP - General Family Medicine 03/24/23 Senior Business Manager Relationship Specialty Start Date End Date Dwayne Lopez MD [address] [facility] [place], [place] [address] PCP - General Family Medicine 03/24/23 Team [...] Dr. Raisa Mc MD Emergency Provider Active Senior Business Manager Relationship Specialty Start Date End Date Dwayne Lopez MD [address] [facility] [place], [place] [id number] PCP - General Family Medicine 03/24/23 Senior Business Manager Relationship Specialty Start Date End Date Dwayne Lopez MD [address] [facility] [place], [place] [id number] PCP - General Family Medicine 03/24/23 Senior Business Manager Relationship Specialty Start Date End Date Dwayne Lopez MD [address] [facility] [place], [place] [address] PCP - General Family Medicine 03/24/23 Senior Business Manager Relationship Specialty Start Date End Date Dwayne Lopez MD [address] [facility] [place], [place] [id number] PCP - General Family Medicine 03/24/23 Team Status: Active Member Role Status Dates Dr. Jarred Lopez MD Primary Care Provider Acti ve Dr. Zack Choi , DO Emergency Provider Active Dr. John Shaw MD Admit Provider, At tending Provider, Other Provider Active Team Status: Active Member Role Status Dates Dr. Jarred Lopez MD Primary Care Provider Acti ve Dr. Zack Cohi , Emergency Provider Active Dr. John Shaw [...] DO Attending Provider Active Dr. Chavez Alcala DO Other Provider Active Team Status: Active [...] Care Provider Acti ve Ana Maria Geller MOTOR BLOCK MECHANIC, MOTOR BLOCK MECHANIC-C Attending Provider Active Team Status: Inactive Member Role Status Dates Dr. Jarred Lopez MD Primary Care Provider Acti ve Ellis Peterson MD Emergency Provider Active Senior Business Manager Relationship Specialty Start Date End Date Dwayne Lopez MD [address] [facility] [place] [address] PCP - General Family Medicine 03/24/23 Senior Business Manager Relationship Specialty Start Date End Date Dwayne Lopez MD [address] [place], [place] [address] PCP - General Family Medicine 03/24/23 Team [...] NOLASCO MD Attending Provider, Referring Provider Active Senior Business Manager Relationship Specialty Start Date End Date Dwayne Lopez MD [address] [place] [address] PCP - General Family Medicine 03/24/23 Senior Business Manager Relationship Specialty Start Date End Date Dwayne Lopez MD [address] [place] [address] PCP - General Family Medicine 09/08/24 Senior Business Manager Relationship Specialty Start Date End Date Dwayne Lopez MD [address] [place], [place] [address] PCP - General Family Medicine 09/08/24 Jesica Mina APRN.LOGGER ALL ROUND [address], [place] [address] [facility] [facility] 09/30/24 Senior Business Manager Relationship Specialty Start Date End Date Dwayne Lopez MD [address] [place], [place] [id number] PCP - General Family Medicine 09/08/24 Jesica Mina APRN.LOGGER [employer] ROUND [address], [place] [address] [employer]urling Machine [facility]Henry [facility] Medicine 09/30/24 Annabel Rivas APRN.LOGGER [employer] ROUND [address] [place], [place] [id number] [facility] 01/05/25 Team Status: Active Member Role Status [...] Status: Active Member Role Status Dates Dr. Lizte Linares MD Primary Care Provider Active Start: [...] End: October 27, 2024 Ana Maria Geller MOTOR BLOCK MECHANIC, MOTOR BLOCK MECHANIC-C Attending Provider Active Start: October 27, 2024 [...] November 10, 2024 End: November 10, 2024 Lziet NOLASCO MD Attending Provider Active Start: November [...] End: January 22, 2025 Ana Maria Geller MOTOR BLOCK MECHANIC, MOTOR BLOCK MECHANIC-C Attending Provider Active Start: January 22, 2025 End: January 22, 2025 Senior Business Manager Relationship Specialty Start Date End Date Dwayne Lopez MD [address], [place] [id number] PCP - General Family Medicine 09/08/24 TrulogarJesica GAS PLANT REPAIRER.[employer]GGER [employer] ROUND [address], [place] [id number] Knurling Machine Operator Family Medicine 09/30/24 Annabel Rivas APRN.LOGGER ALL ROUND [address] [place], [place] [id number] [facility] Family Medicine 01/15/25 Senior Business Manager Relationship Specialty Start Date End Date Dwayne Lopez MD [address] [facility] [place], [place] [address] PCP - General Family Medicine 09/08/24 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, GAS PLANT REPAIRER.LOGGER [employer] ROUND [address] [facility] [place], [place] [address] Knurling Machine Operator Family Medicine 09/30/24 Annabel Rivas GAS PLANT REPAIRER.LOGGER [employer] ROUND [address] [facility], [place] [id number] [facility] 01/15/25 Senior Business Manager Relationship Specialty Start Date End Date Dwayne Lopez MD [address] [facility] [place], [place] [address] PCP - General Family Medicine 09/08/24 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, GAS PLANT REPAIRER.LOGGER [employer] ROUND [address] [facility] [place], [place] [address] [facility] Medicine 09/30/24 Team Status: Inactive Member Role [...] Start: March 05, 2025 Ana Maria NOLASCO MOTOR BLOCK MECHANIC-C Attending Provider Active Start: March 05, 2025 Team Status: Inactive Member Role Status Dates Dr. Lizet Linares MD Primary Care Provider Active Start: March 12, 2025 End: March 12, 2025 Lizet NOLASCO MD Attending Provider Active Start: March 12, 2025 End: March 12, 2025 Lizet NOLASCO MD Referring Provider Active Start: March 12, 2025 End: March 12, 2025 Senior Business Manager Relationship Specialty Start Date End Date Dwayne Lopez MD [address] [place], [place] [address] PCP - General Family Medicine 09/08/24 Jesica Mina APRN.LOGGER [employer] ROUND [address], [place] [address] Knurling Machine Operator Family Medicine 09/30/24 Annabel Rivas APRN.[employer]GGER [employer] ROUND [address] [place], [place] [id number] Knurling Machine Operator Family Medicine 04/05/25 Team Status: Active Member Role/Relationship Status [...] January 22, 2025 Ana Maria Geller NP, MOTOR BLOCK MECHANIC-C Attending Provider Active Start: January 22, 2025 [...] Start: March 05, 2025 Ana Maria NOLASCO NP-C Attending Provider Active Start: March 05, 2025 [...] March 13, 2025 Ana Maria Geller NP MOTOR BLOCK MECHANIC-C Attending Provider Active Start: March 13, 2025 [...] End: April 20, 2025 Ana Maria Geller MOTOR BLOCK MECHANIC, MOTOR BLOCK MECHANIC-C Attending Provider Active Start: April 20, 2025 [...] End: February 26, 2025 Ana Maria Geller MOTOR BLOCK MECHANIC MOTOR BLOCK MECHANIC-C Attending Provider Active Start: February 26, 2025 [...] End: March 13, 2025 Ana Maria Geller MOTOR BLOCK MECHANIC MOTOR BLOCK MECHANIC-C Attending Provider Active Start: March 13, 2025 [...] End: April 20, 2025 Ana Maria Geller MOTOR BLOCK MECHANIC, MOTOR BLOCK MECHANIC-C Attending Provider Active Start: April 20, 2025 End: April 20, 2025 Team Status: Inactive Member Role/Relationship Status Dates Dr. Lizet Linares MD Primary Care Provider Active Start: March 05, 2025 End: March 05, 2025 Ana Maria Geller MOTOR BLOCK MECHANIC, MOTOR BLOCK MECHANIC-C Attending Provider Active Start: March 05, 2025 End: March 05, 2025 Team Status: Inactive Member Role/Relationship Status Dates Dr. Lizet Linares MD Primary Care Provider Active Start: March 08, 2025 End: March 08, 2025 Ana Maria Geller MOTOR BLOCK MECHANIC, MOTOR BLOCK MECHANIC-C Attending Provider Active Start: March 08, 2025 [...] End: March 13, 2025 Ana Maria Geller MOTOR BLOCK MECHANIC, MOTOR BLOCK MECHANIC-C Attending Provider Active Start: March 13, 2025 [...] April 20, 2025 Ana Maria Geller NP MOTOR BLOCK MECHANIC-C Attending Provider Active Start: April 20, 2025 [...] January 30, 2025 End: January 30, 2025 GAIL Dos Santos Attending Provider Active Start: January 30, 2025 End: January 30, 2025 Team Status: Inactive Member Role/Relationship Status Dates Dr. Lizet Linares MD Primary Care Provider Active Start: February 26, 2025 End: February 26, 2025 Ana Maria Geller NP [employer]CH[employer]-C Attending Provider Active Start: February 26, 2025 End: February 26, 2025 Team Status: Active Member Role/Relationship Status Dates Dr. Lizet Linares MD Primary Care Provider Active Start: March 05, 2025 Ana Maria NOLASCO NP-C Attending Provider Active Start: March 05, 2025 Team Status: Inactive Member Role/Relationship Status Dates Dr. Lizet Linares MD Primary Care Provider Active Start: March 05, 2025 End: March 05, 2025 Ana Maria Geller [employer]CHANIC, [employer] MECH[employer]IC-C Attending Provider Active Start: March 05, 2025 End: March 05, 2025 Team Status: Inactive Member Role/Relationship Status Dates Dr. Lizet Linares MD Primary Care Provider Active Start: March 08, 2025 End: March 08, 2025 Ana Maria Geller [employer] BLOCK MECHANIC, [employer] BLOCK MECH[employer]IC-C Attending Provider Active Start: March 08, 2025 [...] End: February 26, 2025 Ana Maria Geller [employer]OR BLOCK MECHANIC, [employer] BLOCK MECH[employer]IC-C Attending Provider Active Start: February 26, 2025 End: February 26, 2025 Team Status: Active Member Role/Relationship Status Dates Dr. Lizet Linares MD Primary Care Provider Active Start: March 05, 2025 Ana Maria Geller OLS, [employer]OR [employer] MECH[employer]IC-C Attending Provider Active Start: March 05, 2025 Team Status: Inactive Member Role/Relationship Status Dates Dr. Lizet Linares MD Primary Care Provider Active Start: March 05, 2025 End: March 05, 2025 Ana Maria Geller [employer] BLOCK MECHANIC, [employer] BLOCK MECH[employer]IC-C Attending Provider Active Start: March 05, 2025 End: March 05, 2025 Team Status: Inactive Member Role/Relationship Status Dates Dr. Lizet Linares MD Primary Care Provider Active Start: March 08, 2025 End: March 08, 2025 Ana Maria eGller [employer]OR BLOCK MECHANIC, [employer] BLOCK MECHANIC-C Attending Provider Active Start: March 08, 2025 [...] Active Start: May 31, 2025 Dr. John Shwa MD Other Provider Active Star t: May [...] End: May 01, 2025 Ana Maria Geller [employer]OR BLOCK MECHANIC, [employer]OR BLOCK MECHANIC-C Attending Provider Active Start: May 01, 2025 [...] Provider Active Start: June 01, 2025 Dr. hCavez Alcala DO Other Provider Active Start: June [...] Inactive Member Role/Relationship Status Dates Dr. Lizet Linraes MD Primary Care Provider Active Start: May 04, 2025 End: May 04, 2025 Ana Maria Geller [employer] BLOCK MECHANIC, [employer]OR BLOCK MECHANIC-C Attending Provider Active Start: May 04, 2025 [...] Active Star t: May 30, 2025 Dr. Jaun Chiang MD Other Provider Active Start: May [...] End: May 07, 2025 Ana Maria Geller NP, [employer]CH[employer]IC-C Attending Provider Active Start: May 07, 2025 [...] 2025 End: June 01, 2025 Dr. Juan Whately MD Other Provider Active Star t: May [...] Provider Active Start: June 04, 2025 Lizet NOALSCO MD Attending Provider Active Start: June 04, [...] End: May 25, 2025 Ana Maria Geller [employer]OR BLOCK MECHANIC, [employer]OR BLOCK MECHANIC-C Attending Provider Active Start: May 25, 2025 [...] Star t: June 01, 2025 Dr. Juan Chiagn MD Other Provider Active Start: June 01, [...] End: May 28, 2025 Ana Maria Geller NP, [employer] MECH[employer]IC-C Attending Provider Active Start: May 28, 2025 [...] 2025 End: June 15, 2025 Team Status: Active Member Role/Relationship Status Dates Dr. Lizet Linares MD Primary care physician Activ e Team Status: Inactive Member Role/Relationship Status Dates Dr. Lizet Linares MD Primary care physician Activ e Start: March 27, 2025 End: March 27, 2025 Dr. Lizet Linares MD Attending physician Active Start: March 27, 2025 End: March 27, 2025 Team Status: Active Member Role/Relationship Status Dates Dr. Lizet Linares MD Primary care physician Activ e Start: March 29, 2025 Lizet NOLASCO MD Attending physician Active Start: March 29, 2025 Team Status: Active Member Role/Relationship Status Dates Dr. Lizet Linares MD Primary care physician Activ e Start: April 06, 2025 Lizet NOLASCO MD Attending physician Active Start: April 06, 2025 Team Status: Inactive Member Role/Relationship Status Dates Dr. Lizet Linares MD Primary care physician Activ e Start: April 12, 2025 End: April 12, 2025 GAIL Richard Attending physician Active S tart: April 12, 2025 End: April 12, 2025 Team Status: Active Member Role/Relationship Status Dates Dr. Lizet Linares MD Primary care physician Activ e Start: April 12, 2025 Lizet NLOASCO MD Attending physician Active Start: April 12, 2025 Team Status: Inactive Member Role/Relationship Status Dates Dr. Lizet Linares MD Primary care physician Activ e Start: April 20, 2025 End: April 20, 2025 Ana Maria Geller NP [employer]OR BLOCK MECH[employer]IC-C Attending physician Active Start: April 20, 2025 End: April 20, 2025 Team Status: Active Member Role/Relationship Status Dates Dr. Lizet Linares MD Primary care physician Activ e Start: April 25, 2025 Lizet NOLASCO MD Attending physician Active Start: April 25, 2025 Team Status: Inactive Member Role/Relationship Status Dates Dr. Lizet Linares MD Primary care physician Activ e Start: May 01, 2025 End: May 01, 2025 Ana Maria Geller NP [employer] BLOCK MECH[employer]IC-C Attending physician Active Start: May 01, 2025 End: May 01, 2025 Team Status: Inactive Member Role/Relationship Status Dates Dr. Lizet Linares MD Primary care physician Activ e Start: May 04, 2025 End: May 04, 2025 Ana Maria Geller NP [employer]OR BLOCK MECH[employer]IC-C Attending physician Active Start: May 04, 2025 End: May 04, 2025 Team Status: Active Member Role/Relationship Status Dates Dr. Lizet Linares MD Primary care physician Activ e Start: May 07, 2025 Lizet NOLASCO MD Attending physician Active Start: May 07, 2025 Team Status: Inactive Member Role/Relationship Status Dates Dr. Lizet Linares MD Primary care physician Activ e Start: May 07, 2025 End: May 07, 2025 Ana Maria Geller [employer]OR BLOCK MECHANIC, [employer]OR BLOCK MECHANIC-C Attending physician Active Start: May 07, 2025 End: May 07, 2025 Team Status: Inactive Member Role/Relationship Status Dates Dr. Lizet Linares MD Primary care physician Activ e Start: May 25, 2025 End: May 25, 2025 Ana Maria Geller NP, [employer] MECH[employer]IC-C Attending physician Active Start: May 25, 2025 End: May 25, 2025 Team Status: Inactive Member Role/Relationship Status Dates Dr. Lizet Linares MD Primary care physician Activ e Start: May 26, 2025 End: May 26, 2025 Dr. Raúl Alejo DO Attending physician Active Star t: May 26, 2025 End: May 26, 2025 Dr. Raúl Alejo DO Emergency Department Physician Active Start: May 26, 2025 End: May 26, 2025 Team Status: Inactive Member Role/Relationship Status Dates Dr. Lizet Linares MD Primary care physician Activ e Start: May 28, 2025 End: June 01, 2025 Dr. Delores Moya MD Emergency Departmen t Physician Active Start: May 28, 2025 End: June 01, 2025 Dr. Chavez Alcala DO Admitting physician Active Start: May 28 End: June 01, 2025 Dr. Chavez Alcala DO Nurse Practitioner Active Start: May 28 End: June 01, 2025 Dr. John Shaw MD Attending physician Active Start: May 28, 2025 End: June 01, 2025 Dr. Juan Chiang MD Nurse Practitioner Active Start: May 28, 2025 End: June 01, 2025 Dr. Juan Whatley MD Nurse Practitioner Active Start: May 28, 2025 End: June 01, 2025 Team Status: Inactive Member Role/Relationship Status Dates Dr. Lizet Linares MD Primary care physician Activ e Start: May 28, 2025 End: May 28, 2025 Ana Maria Geller [employer]OR BLOCK MECHANIC, [employer]OR BLOCK MECHANIC-C Attending physician Active Start: May 28, 2025 End: May 28, 2025 Team Status: Active Member Role/Relationship Status Dates Dr. Lizet Linares MD Primary care physician Activ e Start: May 29, 2025 Dr. Delores Moya MD Emergency Departmen t Physician Active Start: May 29, 2025 Dr. Chavez Alcala DO Admitting physician Active Start: May 29 Dr. Chavez Alcala DO Nurse Practitioner Active Start: May 29 Dr. John Shaw MD Attending physician Active Start: May 29, 2025 Dr. John Shaw MD Nurse Practitioner Active Start: May 29, 2025 Team Status: Active Member Role/Relationship Status Dates Dr. Lizet Linares MD Primary care physician Activ e Start: May 30, 2025 Dr. Delores Moya MD Emergency Departmen t Physician Active Start: May 30, 2025 Dr. Chavez Alcala DO Admitting physician Active Start: May 30 Dr. Chavez Alcala DO Nurse Practitioner Active Start: May 30 Dr. John Shaw MD Attending physician Active Start: May 30, 2025 Dr. John Shaw MD Nurse Practitioner Active Start: May 30, 2025 Dr. Juan Chiang MD Nurse Practitioner Active Start: May 30, 2025 Team Status: Active Member Role/Relationship Status Dates Dr. Lizet Linares MD Primary care physician Activ e Start: May 30, 2025 Dr. Delores Moya MD Emergency Departmen t Physician Active Start: May 30, 2025 Dr. Chavez Alcala DO Admitting physician Active Start: May 30 Dr. Chavez Alcala DO Nurse Practitioner Active Start: May 30 Dr. John Shaw MD Referring Provider Active Start: May 30, 2025 Dr. John Shaw MD Nurse Practitioner Active Start: May 30, 2025 Dr. Juan Chiang MD Nurse Practitioner Active Start: May 30, 2025 Dr. Austyn Patel MD Nurse Practitioner Active Start: May 30, 2025 Dr. Juan Whatley MD Attending physician Active Start: May 30, 2025 Team Status: Active Member Role/Relationship Status Dates Dr. Lizet Linares MD Primary care physician Activ e Start: May 31, 2025 Dr. Delores Moya MD Emergency Departmen t Physician Active Start: May 31, 2025 Dr. Chavez Alcala DO Admitting physician Active Start: May 31 Dr. Chavez Alcala DO Nurse Practitioner Active Start: May 31 Dr. John Shaw MD Attending physician Active Start: May 31, 2025 Dr. John Shaw MD Nurse Practitioner Active Start: May 31, 2025 Dr. Juan Chiang MD Nurse Practitioner Active Start: May 31, 2025 Dr. Austyn Patel MD Nurse Practitioner Active Start: May 31, 2025 Team Status: Active Member Role/Relationship Status Dates Dr. Lizet Linares MD Primary care physician Activ e Start: May 31, 2025 Dr. Delores Moya MD Emergency Departmen t Physician Active Start: May 31, 2025 Dr. Chavez Alcala DO Admitting physician Active Start: May 31 Dr. Chavez Alcala DO Nurse Practitioner Active Start: May 31 Dr. John Shaw MD Nurse Practitioner Active Start: May 31, 2025 Dr. Juan Chiang MD Nurse Practitioner Active Start: May 31, 2025 Dr. Austyn Patel MD Nurse Practitioner Active Start: May 31, 2025 Dr. Juan Whatley MD Attending physician Active Start: May 31, 2025 Team Status: Active Member Role/Relationship Status Dates Dr. Lizet Linares MD Primary care physician Activ e Start: June 01, 2025 Dr. Delores Moya MD Emergency Departmen t Physician Active Start: June 01, 2025 Dr. Chavez Alcala DO Admitting physician Active Start: June 01 Dr. Chavez Alcala DO Nurse Practitioner Active Start: June 01 Dr. John Shaw MD Attending physician Active Start: June 01, 2025 Dr. John Shaw MD Nurse Practitioner Active Start: June 01, 2025 Dr. Juan Chiang MD Nurse Practitioner Active Start: June 01, 2025 Dr. Juan Whatley MD Nurse Practitioner Active Start: June 01, 2025 Team Status: Active Member Role/Relationship Status Dates Dr. Lizet Linares MD Primary care physician Activ e Start: June 01, 2025 Dr. Delores Moya MD Emergency Departmen t Physician Active Start: June 01, 2025 Dr. Chavez Alcala DO Admitting physician Active Start: June 01 Dr. Chavez Alcala DO Nurse Practitioner Active Start: June 01 Dr. John Shaw MD Nurse Practitioner Active Start: June 01, 2025 Dr. Juan Chiang MD Nurse Practitioner Active Start: June 01, 2025 Dr. Juan Whatley MD Attending physician Active Start: June 01, 2025 Dr. Juan Whatley MD Nurse Practitioner Active Start: June 01, 2025 Team Status: Active Member Role/Relationship Status Dates Dr. Lizet Linares MD Primary care physician Activ e Start: June 04, 2025 Lizet NOLASCO MD Attending physician Active Start: June 04, 2025 Team Status: Inactive Member Role/Relationship Status Dates Dr. Lizet Linares MD Primary care physician Activ e Start: June 05, 2025 End: June 05, 2025 Dr. Lizet Linares MD Attending physician Active Start: June 05, 2025 End: June 05, 2025 Team Status: Inactive Member Role/Relationship Status Dates Dr. Lizet Linares MD Primary care physician Activ e Start: June 07, 2025 End: June 07, 2025 Dr. Lizet Linares MD Referring Provider Active Start: June 07, 2025 End: June 07, 2025 Dr. Juan Whatley MD Attending physician Active Start: June 07, 2025 End: June 07, 2025 Team Status: Active Member Role/Relationship Status Dates Dr. Lizet Linares MD Primary care physician Activ e Start: June 11, 2025 Lizet NOLASCO MD Attending physician Active Start: June 11, 2025 Team Status: Inactive Member Role/Relationship Status Dates Dr. Lizet Linares MD Primary care physician Activ e Start: June 15, 2025 End: June 15, 2025 Dr. Lizet Linares MD Referring Provider Active Start: June 15, 2025 End: June 15, 2025 Dr. Juan Whatley MD Attending physician Active Start: June 15, 2025 End: June 15, 2025 Team Status: Active Member Role/Relationship Status Dates Dr. Lizet Linares MD Primary care physician Activ e Start: June 28, 2025 Lizet NOLASCO MD Attending physician Active Start: June 28, 2025 Team Status: Active Member Role/Relationship Status Dates Dr. Lizet Linares MD Primary care physician Activ e Start: July 06, 2025 Lizet NOLASCO MD Attending physician Active Start: July 06, 2025 Team Status: Inactive Member Role/Relationship Status Dates Dr. Lizet Linares MD Primary care physician Activ e Start: July 06, 2025 End: July 06, 2025 Dr. Jacqueline Renteria MD Attending physician Active Start: July 06, 2025 End: July 06, 2025 Dr. Jacqueline Renteria MD Referring Provider Active Start: July 06, 2025 End: July 06, 2025 Team Status: Inactive Member Role/Relationship Status Dates Dr. Lizet Linares MD Primary care physician Activ e Start: July 17, 2025 End: July 17, 2025 Dr. Lizet Linares MD Referring Provider Active Start: July 17, 2025 End: July 17, 2025 Dr. Rosa Maria Hagan MD Attending physician Active Start: July 17, 2025 End: July 17, 2025 Team Status: Active Member Role/Relationship Status Dates Dr. Lizet Linares MD Primary care physician Activ e Start: March 29, 2025 Lizet NOLASCO MD Attending physician Active Start: March 29, 2025 Team Status: Inactive Member Role/Relationship Status Dates Dr. Lizet Linares MD Primary care physician Activ e Start: April 06, 2025 End: April 06, 2025 Lizet NOLASCO MD Attending physician Active Start: April 06, 2025 End: April 06, 2025 Team Status: Inactive Member Role/Relationship Status Dates Dr. Lizet Linares MD Primary care physician Activ e Start: April 12, 2025 End: April 12, 2025 GAIL Richard Attending physician Active S tart: April 12, 2025 End: April 12, 2025 Team Status: Active Member Role/Relationship Status Dates Dr. Lizet Linares MD Primary care physician Activ e Start: April 12, 2025 Lizet NOLASCO MD Attending physician Active Start: April 12, 2025 Team Status: Inactive Member Role/Relationship Status Dates Dr. Lizet Linares MD Primary care physician Activ e Start: April 20, 2025 End: April 20, 2025 Ana Maria Geller MOTOR BLOCK MECHANIC, [employer]OR BLOCK MECHANIC-C Attending physician Active Start: April 20, 2025 End: April 20, 2025 Team Status: Active Member Role/Relationship Status Dates Dr. Lizet Linares MD Primary care physician Activ e Start: April 25, 2025 Lizet NOLASCO MD Attending physician Active Start: April 25, 2025 Team Status: Inactive Member Role/Relationship Status Dates Dr. Lizet Linares MD Primary care physician Activ e Start: May 01, 2025 End: May 01, 2025 Ana Maria Geller [employer] BLOCK MECHANIC, [employer]OR BLOCK MECHANIC-C Attending physician Active Start: May 01, 2025 End: May 01, 2025 Team Status: Inactive Member Role/Relationship Status Dates Dr. Lizet Linares MD Primary care physician Activ e Start: May 04, 2025 End: May 04, 2025 Ana Maria Geller [employer]OR BLOCK MECHANIC, [employer]OR BLOCK MECHANIC-C Attending physician Active Start: May 04, 2025 End: May 04, 2025 Team Status: Active Member Role/Relationship Status Dates Dr. Lizet Linares MD Primary care physician Activ e Start: May 07, 2025 Lizet NOLASCO MD Attending physician Active Start: May 07, 2025 Team Status: Inactive Member Role/Relationship Status Dates Dr. Lizet Linares MD Primary care physician Activ e Start: May 07, 2025 End: May 07, 2025 Ana Maria Geller MOTOR BLOCK MECHANIC, [employer]OR BLOCK MECHANIC-C Attending physician Active Start: May 07, 2025 End: May 07, 2025 Team Status: Inactive Member Role/Relationship Status Dates Dr. Lizet Linares MD Primary care physician Activ e Start: May 25, 2025 End: May 25, 2025 Ana Maria Geller MOTOR BLOCK MECHANIC, MOTOR BLOCK MECHANIC-C Attending physician Active Start: May 25, 2025 End: May 25, 2025 Team Status: Inactive Member Role/Relationship Status Dates Dr. Lizet Linares MD Primary care physician Activ e Start: May 26, 2025 End: May 26, 2025 Dr. Raúl Le , DO Attending physician Active Star t: May 26, 2025 End: May 26, 2025 Dr. Raúl Alejo DO Emergency Department Physician Active Start: May 26, 2025 End: May 26, 2025 Team Status: Inactive Member Role/Relationship Status Dates Dr. Lizet Linares MD Primary care physician Activ e Start: May 28, 2025 End: June 01, 2025 Dr. [facility] Active Start: May 28, 2025 End: June 01, 2025 Dr. Chavez Alcala DO Admitting physician Active Start: May 28 End: June 01, 2025 Dr. Chavez Alcala DO Nurse Practitioner Active Start: May 28 End: June 01, 2025 Dr. John Shaw MD Attending physician Active Start: May 28, 2025 End: June 01, 2025 Dr. Juan Chiang MD Nurse Practitioner Active Start: May 28, 2025 End: June 01, 2025 Dr. Juan Whatley MD Nurse Practitioner Active Start: May 28, 2025 End: June 01, 2025 Team Status: Inactive Member Role/Relationship Status Dates Dr. Lizet Linares MD Primary care physician Activ e Start: May 28, 2025 End: May 28, 2025 Ana Maria Geller MOTOR BLOCK MECHANIC, MOTOR BLOCK MECHANIC-C Attending physician Active Start: May 28, 2025 End: May 28, 2025 Team Status: Active Member Role/Relationship Status Dates Dr. Lizet Linares MD Primary care physician Activ e Start: May 29, 2025 Dr. [facility] Active Start: May 29, 2025 Dr. Chavez Alcala DO Admitting physician Active Start: May 29 Dr. Chavez Alcala DO Nurse Practitioner Active Start: May 29 Dr. John Shaw MD Attending physician Active Start: May 29, 2025 Dr. John Shaw MD Nurse Practitioner Active Start: May 29, 2025 Team Status: Active Member Role/Relationship Status Dates Dr. Lizet Linares MD Primary care physician Activ e Start: May 30, 2025 Dr. Delores Moya MD Emergency Departmen t Physician Active Start: May 30, 2025 Dr. Chavez Alcala DO Admitting physician Active Start: May 30 Dr. Chavez Alcala DO Nurse Practitioner Active Start: May 30 Dr. John Shaw MD Attending physician Active Start: May 30, 2025 Dr. John Shaw MD Nurse Practitioner Active Start: May 30, 2025 Dr. Juan Chiang MD Nurse Practitioner Active Start: May 30, 2025 Team Status: Active Member Role/Relationship Status Dates Dr. Lizet Linares MD Primary care physician Activ e Start: May 30, 2025 Dr. Del[facility] Active Start: May 30, 2025 Dr. Chavez Alcala DO Admitting physician Active Start: May 30 Dr. Chavez Alcala DO Nurse Practitioner Active Start: May 30 Dr. John Shaw MD Referring Provider Active Start: May 30, 2025 Dr. John Shaw MD Nurse Practitioner Active Start: May 30, 2025 Dr. Juan Chiang MD Nurse Practitioner Active Start: May 30, 2025 Dr. Austyn Patel MD Nurse Practitioner Active Start: May 30, 2025 Dr. Juan Whatley MD Attending physician Active Start: May 30, 2025 Team Status: Active Member Role/Relationship Status Dates Dr. Lizet Linares MD Primary care physician Activ e Start: May 31, 2025 Dr. Delores [facility] Active Start: May 31, 2025 Dr. Chavez Alcala DO Admitting physician Active Start: May 31 Dr. Chavez Alcala DO Nurse Practitioner Active Start: May 31 Dr. John Shaw MD Attending physician Active Start: May 31, 2025 Dr. John Shaw MD Nurse Practitioner Active Start: May 31, 2025 Dr. Juan Chiang MD Nurse Practitioner Active Start: May 31, 2025 Dr. Austyn Patel MD Nurse Practitioner Active Start: May 31, 2025 Team Status: Active Member Role/Relationship Status Dates Dr. Lizet Linares MD Primary care physician Activ e Start: May 31, 2025 Dr. Delores Moya MD Emergency Departmen t Physician Active Start: May 31, 2025 Dr. Chavez Alcala DO Admitting physician Active Start: May 31 Dr. Chavez Alcala DO Nurse Practitioner Active Start: May 31 Dr. John Shaw MD Nurse Practitioner Active Start: May 31, 2025 Dr. Juan Chiang MD Nurse Practitioner Active Start: May 31, 2025 Dr. Austyn Patel MD Nurse Practitioner Active Start: May 31, 2025 Dr. Juan Whatley MD Attending physician Active Start: May 31, 2025 Team Status: Active Member Role/Relationship Status Dates Dr. Lizet Linares MD Primary care physician Activ e Start: June 01, 2025 Dr. [facility] Active Start: June 01, 2025 Dr. Chavez Alcala DO Admitting physician Active Start: June 01 Dr. Chavez Alcala DO Nurse Practitioner Active Start: June 01 Dr. John Shaw MD Attending physician Active Start: June 01, 2025 Dr. John Shaw MD Nurse Practitioner Active Start: June 01, 2025 Dr. Juan Chiang MD Nurse Practitioner Active Start: June 01, 2025 Dr. Juan Whatley MD Nurse Practitioner Active Start: June 01, 2025 Team Status: Active Member Role/Relationship Status Dates Dr. Lizet Linares MD Primary care physician Activ e Start: June 01, 2025 Dr. Delores [facility] Active Start: June 01, 2025 Dr. Chavez Alcala DO Admitting physician Active Start: June 01 Dr. Chavez Alcala DO Nurse Practitioner Active Start: June 01 Dr. John Shaw MD Nurse Practitioner Active Start: June 01, 2025 Dr. Juan Chiang MD Nurse Practitioner Active Start: June 01, 2025 Dr. Juan Whatley MD Attending physician Active Start: June 01, 2025 Dr. Juan Whatley MD Nurse Practitioner Active Start: June 01, 2025 Team Status: Active Member Role/Relationship Status Dates Dr. Lizet Linares MD Primary care physician Activ e Start: June 04, 2025 Lizet NOLASCO MD Attending physician Active Start: June 04, 2025 Team Status: Inactive Member Role/Relationship Status Dates Dr. Lizet Linares MD Primary care physician Activ e Start: June 05, 2025 End: June 05, 2025 Dr. Lizet Linares MD Attending physician Active Start: June 05, 2025 End: June 05, 2025 Team Status: Inactive Member Role/Relationship Status Dates Dr. Lizet Linares MD Primary care physician Activ e Start: June 07, 2025 End: June 07, 2025 Dr. Lizet Linares MD Referring Provider Active Start: June 07, 2025 End: June 07, 2025 Dr. Juan Whatley MD Attending physician Active Start: June 07, 2025 End: June 07, 2025 Team Status: Active Member Role/Relationship Status Dates Dr. Lizet Linares MD Primary care physician Activ e Start: June 11, 2025 Lizet NOLASCO MD Attending physician Active Start: June 11, 2025 Team Status: Inactive Member Role/Relationship Status Dates Dr. Lizet Linares MD Primary care physician Activ e Start: June 15, 2025 End: June 15, 2025 Dr. Lizet Linares MD Referring Provider Active Start: June 15, 2025 End: June 15, 2025 Dr. Juan Whatley MD Attending physician Active Start: June 15, 2025 End: June 15, 2025 Team Status: Active Member Role/Relationship Status Dates Dr. Lizet Linares MD Primary care physician Activ e Start: June 28, 2025 Lizet NOLASCO MD Attending physician Active Start: June 28, 2025 Team Status: Active Member Role/Relationship Status Dates Dr. Lizet Linares MD Primary care physician Activ e Start: July 06, 2025 Lizet NOLASCO MD Attending physician Active Start: July 06, 2025 Team Status: Inactive Member Role/Relationship Status Dates Dr. Lizet Linares MD Primary care physician Activ e Start: July 06, 2025 End: July 06, 2025 Dr. Jacqueline Renteria MD Attending physician Active Start: July 06, 2025 End: July 06, 2025 Dr. Jacqueline Renteria MD Referring Provider Active Start: July 06, 2025 End: July 06, 2025 Team Status: Inactive Member Role/Relationship Status Dates Dr. Lizet Linares MD Primary care physician Activ e Start: July 17, 2025 End: July 17, 2025 Dr. Lizet Linares MD Referring Provider Active Start: July 17, 2025 End: July 17, 2025 Dr. Rosa Maria Hagan MD Attending physician Active Start: July 17, 2025 End: July 17, 2025 Team Status: Active Member Role/Relationship Status Dates Dr. Lizet Linares MD Primary care physician Activ e Start: July 26, 2025 DORIS MarinC Attending physician Active Start: July 26, 2025 Team Status: Active Member Role/Relationship Status Dates Dr. Lizet Linares MD Primary care physician Activ e Start: July 26, 2025 Shonda Chávez PA, PA Attending physician Active Start: July 26, 2025 Shonda Chávez PA, PA Referring Provider Active Start: July 26, 2025 Team Status: Inactive Member Role/Relationship Status Dates Dr. Lizet Linares MD Primary care physician Activ e Start: April 25, 2025 End: April 25, 2025 Lizet NOLASCO MD Attending physician Active Start: April 25, 2025 End: April 25, 2025 Team Status: Inactive Member Role/Relationship Status Dates Dr. Lizet Linares MD Primary care physician Activ e Start: April 25, 2025 End: April 25, 2025 Lizet NOLASCO MD Attending physician Active Start: April 25, 2025 End: April 25, 2025 Team Status: Inactive Member Role/Relationship Status Dates Dr. Lizet Linares MD Primary care physician Activ e Start: May 01, 2025 End: May 01, 2025 Ana Maria Geller NP [employer]-C Attending physician Active Start: May 01, 2025 End: May 01, 2025 Team Status: Inactive Member Role/Relationship Status Dates Dr. Lizet Linares MD Primary care physician Activ e Start: May 04, 2025 End: May 04, 2025 Ana Maria Geller NP [employer]-C Attending physician Active Start: May 04, 2025 End: May 04, 2025 Team Status: Active Member Role/Relationship Status Dates Dr. Lizet Linares MD Primary care physician Activ e Start: May 07, 2025 Lizet NOLASCO MD Attending physician Active Start: May 07, 2025 Team Status: Inactive Member Role/Relationship Status Dates Dr. Liezt Linares MD Primary care physician Activ e Start: May 07, 2025 End: May 07, 2025 Ana Maria Geller NP [employer]-C Attending physician Active Start: May 07, 2025 End: May 07, 2025 Team Status: Inactive Member Role/Relationship Status Dates Dr. Lizet Linares MD Primary care physician Activ e Start: May 25, 2025 End: May 25, 2025 Ana Maria Geller NP [employer]-C Attending physician Active Start: May 25, 2025 End: May 25, 2025 Team Status: Inactive Member Role/Relationship Status Dates Dr. Lizet Linares MD Primary care physician Activ e Start: May 26, 2025 End: May 26, 2025 Dr. Raúl Alejo DO Attending physician Active Star t: May 26, 2025 End: May 26, 2025 Dr. Raúl Alejo DO Emergency Department Physician Active Start: May 26, 2025 End: May 26, 2025 Team Status: Inactive Member Role/Relationship Status Dates Dr. Lizet Linares MD Primary care physician Activ e Start: May 28, 2025 End: June 01, 2025 Dr. Delores Moya MD Emergency Departmen t Physician Active Start: May 28, 2025 End: June 01, 2025 Dr. Chavez Alcala DO Admitting physician Active Start: May 28 End: June 01, 2025 Dr. Chavez Alcala DO Nurse Practitioner Active Start: May 28 End: June 01, 2025 Dr. John Shaw MD Attending physician Active Start: May 28, 2025 End: June 01, 2025 Dr. Juan Chiang MD Nurse Practitioner Active Start: May 28, 2025 End: June 01, 2025 Dr. Juan Whatley MD Nurse Practitioner Active Start: May 28, 2025 End: June 01, 2025 Team Status: Inactive Member Role/Relationship Status Dates Dr. Lizet Linares MD Primary care physician Activ e Start: May 28, 2025 End: May 28, 2025 Ana Maria Geller NP [employer]-C Attending physician Active Start: May 28, 2025 End: May 28, 2025 Team Status: Active Member Role/Relationship Status Dates Dr. Lizet Linares MD Primary care physician Activ e Start: May 29, 2025 Dr. Delores Moya MD Emergency Departmen t Physician Active Start: May 29, 2025 Dr. Chavez Alcala DO Admitting physician Active Start: May 29 Dr. Chavez Alcala DO Nurse Practitioner Active Start: May 29 Dr. John Shaw MD Attending physician Active Start: May 29, 2025 Dr. John Shaw MD Nurse Practitioner Active Start: May 29, 2025 Team Status: Active Member Role/Relationship Status Dates Dr. Lizet Linares MD Primary care physician Activ e Start: May 30, 2025 Dr. Delores Moya MD Emergency Departmen t Physician Active Start: May 30, 2025 Dr. Chavez Alcala DO Admitting physician Active Start: May 30 Dr. Chavez Alcala DO Nurse Practitioner Active Start: May 30 Dr. John Shaw MD Attending physician Active Start: May 30, 2025 Dr. John Shaw MD Nurse Practitioner Active Start: May 30, 2025 Dr. Juan Chiang MD Nurse Practitioner Active Start: May 30, 2025 Team Status: Active Member Role/Relationship Status Dates Dr. Lizet Linares MD Primary care physician Activ e Start: May 30, 2025 Dr. Delores Moya MD Emergency Departmen t Physician Active Start: May 30, 2025 Dr. Chavez Alcala DO Admitting physician Active Start: May 30 Dr. Chavez Alcala DO Nurse Practitioner Active Start: May 30 Dr. John Shaw MD Referring Provider Active Start: May 30, 2025 Dr. John Shaw MD Nurse Practitioner Active Start: May 30, 2025 Dr. Juan Chiang MD Nurse Practitioner Active Start: May 30, 2025 Dr. Austyn Patel MD Nurse Practitioner Active Start: May 30, 2025 Dr. Juan Whatley MD Attending physician Active Start: May 30, 2025 Team Status: Active Member Role/Relationship Status Dates Dr. Lizet Linares MD Primary care physician Activ e Start: May 31, 2025 Dr. Delores Moya MD Emergency Departmen t Physician Active Start: May 31, 2025 Dr. Chavez Alcala DO Admitting physician Active Start: May 31 Dr. Chavez Alcala DO Nurse Practitioner Active Start: May 31 Dr. John Shaw MD Attending physician Active Start: May 31, 2025 Dr. John Shaw MD Nurse Practitioner Active Start: May 31, 2025 Dr. Juan Chiang MD Nurse Practitioner Active Start: May 31, 2025 Dr. Austyn Patel MD Nurse Practitioner Active Start: May 31, 2025 Team Status: Active Member Role/Relationship Status Dates Dr. Lizet Linares MD Primary care physician Activ e Start: May 31, 2025 Dr. Delores Moya MD Emergency Departmen t Physician Active Start: May 31, 2025 Dr. Chavez Alcala DO Admitting physician Active Start: May 31 Dr. Chavez Alcala DO Nurse Practitioner Active Start: May 31 Dr. John Shaw MD Nurse Practitioner Active Start: May 31, 2025 Dr. Juan Chiang MD Nurse Practitioner Active Start: May 31, 2025 Dr. Austyn Patel MD Nurse Practitioner Active Start: May 31, 2025 Dr. Juan Whatley MD Attending physician Active Start: May 31, 2025 Team Status: Active Member Role/Relationship Status Dates Dr. Lizet Linares MD Primary care physician Activ e Start: June 01, 2025 Dr. [facility] Active Start: June 01, 2025 Dr. Chavez Alcala DO Admitting physician Active Start: June 01 Dr. Chavez Alcala DO Nurse Practitioner Active Start: June 01 Dr. John Shaw MD Attending physician Active Start: June 01, 2025 Dr. John Shaw MD Nurse Practitioner Active Start: June 01, 2025 Dr. Juan Chiang MD Nurse Practitioner Active Start: June 01, 2025 Dr. Juan Whatley MD Nurse Practitioner Active Start: June 01, 2025 Team Status: Active Member Role/Relationship Status Dates Dr. Lizet Linares MD Primary care physician Activ e Start: June 01, 2025 Dr. Delores Moya MD Emergency Departmen t Physician Active Start: June 01, 2025 Dr. Chavez Alcala DO Admitting physician Active Start: June 01 Dr. Chavez Alcala DO Nurse Practitioner Active Start: June 01 Dr. John Shaw MD Nurse Practitioner Active Start: June 01, 2025 Dr. Juan Chiang MD Nurse Practitioner Active Start: June 01, 2025 Dr. Juan Whatley MD Attending physician Active Start: June 01, 2025 Dr. Juan Whatley MD Nurse Practitioner Active Start: June 01, 2025 Team Status: Active Member Role/Relationship Status Dates Dr. Lizet Linares MD Primary care physician Activ e Start: June 04, 2025 Lizet NOLASCO MD Attending physician Active Start: June 04, 2025 Team Status: Inactive Member Role/Relationship Status Dates Dr. Lizet Linares MD Primary care physician Activ e Start: June 05, 2025 End: June 05, 2025 Dr. Lizet Linares MD Attending physician Active Start: June 05, 2025 End: June 05, 2025 Team Status: Inactive Member Role/Relationship Status Dates Dr. Lizet Linares MD Primary care physician Activ e Start: June 07, 2025 End: June 07, 2025 Dr. Lizet Linares MD Referring Provider Active Start: June 07, 2025 End: June 07, 2025 Dr. Juan Whatley MD Attending physician Active Start: June 07, 2025 End: June 07, 2025 Team Status: Active Member Role/Relationship Status Dates Dr. Lizet Linares MD Primary care physician Activ e Start: June 11, 2025 Lizet NOLASCO MD Attending physician Active Start: June 11, 2025 Team Status: Inactive Member Role/Relationship Status Dates Dr. Lizet Linares MD Primary care physician Activ e Start: June 15, 2025 End: June 15, 2025 Dr. Lizet Linares MD Referring Provider Active Start: June 15, 2025 End: June 15, 2025 Dr. Juan Whatley MD Attending physician Active Start: June 15, 2025 End: June 15, 2025 Team Status: Active Member Role/Relationship Status Dates Dr. Lizet Linares MD Primary care physician Activ e Start: June 28, 2025 Lizet NOLASCO MD Attending physician Active Start: June 28, 2025 Team Status: Active Member Role/Relationship Status Dates Dr. Lizet Linares MD Primary care physician Activ e Start: July 06, 2025 Lizet NOLASCO MD Attending physician Active Start: July 06, 2025 Team Status: Inactive Member Role/Relationship Status Dates Dr. Lizet Linares MD Primary care physician Activ e Start: July 06, 2025 End: July 06, 2025 Dr. Jacqueline Renteria MD Attending physician Active Start: July 06, 2025 End: July 06, 2025 Dr. Jacqueline Renteria MD Referring Provider Active Start: July 06, 2025 End: July 06, 2025 Team Status: Inactive Member Role/Relationship Status Dates Dr. Lizet Linares MD Primary care physician Activ e Start: July 06, 2025 End: July 06, 2025 Ana Maria Geller NP [employer]-C Attending physician Active Start: July 06, 2025 End: July 06, 2025 Team Status: Inactive Member Role/Relationship Status Dates Dr. Lizet Linares MD Primary care physician Activ e Start: July 17, 2025 End: July 17, 2025 Dr. Lizet Linares MD Referring Provider Active Start: July 17, 2025 End: July 17, 2025 Dr. Rosa Maria Hagan MD Attending physician Active Start: July 17, 2025 End: July 17, 2025 Team Status: Active Member Role/Relationship Status Dates Dr. Lizet Linares MD Primary care physician Activ e Start: July 26, 2025 Ana Maria NOLASCO NP-C Attending physician Active Start: July 26, 2025 Team Status: Inactive Member Role/Relationship Status Dates Dr. Lizet Linares MD Primary care physician Activ e Start: July 26, 2025 End: July 26, 2025 Shonda Chávez PA, PA Attending physician Active Start: July 26, 2025 End: July 26, 2025 Shonda Chávez PA, PA Referring Provider Active Start: July 26, 2025 End: July 26, 2025 Team Status: Active Member Role/Relationship Status Dates Dr. Lizet Linares MD Primary care physician Activ e Start: July 30, 2025 Shonda Chávez PA, PA Referring Provider Active Start: July 30, 2025 Shonda Chávez PA, PA Nurse Practitioner Active Start: July 30, 2025 Dr. Júnior Lombardo MD Attending physician Active Start: July 30, 2025 FOR RECORDS PERTAINING TO PATIENTS WHO [...] BE BASED ON THE PRIMARY CLINICAL RECORDS. [facility] [employer] [facility] provides no warranty or guarantee of the accuracy or completeness of information in this document.
[2025-09-12 09:01] LABS: Hematocrit 31.1 % (37-47); Hemoglobin 9.7 g/dL (12.0-15.0); Immature Granulocytes Count 0.040 X10^3/uL (0.0-0.0); Mean Corp Hgb Conc 31.2 g/dL (32-36); Mean Corpuscular Volume 89.1 fL (81-99); Mean Platelet Vol. 10.1 fl (6.2-12.0); NRBC Flagged by Analyzer 0 % (0-5); Platelet Count 285 K/mm3 (150-450); RBC Distribution Width CV 15.2 % (11.6-14.6); RBC Distribution Width SD 49.1 fl (35.1-43.9); Red Blood Count 3.49 M/mm3 (4.2-5.4); White Blood Count 5.3 K/mm3 (4.4-11.0)
== END ==
LOC: OLS.WHLEAS 05:00
PROVIDERS: PCP Internal Medicine; Visit Provider Internal Medicine
DX: E11.22 Type 2 diabetes mellitus with diabetic chronic kidney disease (principal); N18.9 Chronic kidney disease, unspecified; M62.561 Muscle wasting and atrophy, not elsewhere classified, right lower leg; M62.562 Muscle wasting and atrophy, not elsewhere classified, left lower leg
CPT/HCPCS: 36415; 85025

== ENCOUNTER → 2025-10-03 21:00 | Outpatient (REF) | payer MEDICARE, MEDICAID, SELFPAY ==
[2025-10-04 09:34] LABS: Creatinine, Urine (random) 27.70 mg/dL (28.00-217.00); Microalbumin,Random Urine 155.0 mg/L (<20 mg/L)
== END ==
LOC: OLS.WHLEAS 21:00
PROVIDERS: PCP Internal Medicine; Visit Provider Internal Medicine
DX: E11.22 Type 2 diabetes mellitus with diabetic chronic kidney disease (principal); M62.561 Muscle wasting and atrophy, not elsewhere classified, right lower leg; M62.562 Muscle wasting and atrophy, not elsewhere classified, left lower leg; R26.2 Difficulty in walking, not elsewhere classified; E11.42 Type 2 diabetes mellitus with diabetic polyneuropathy
CPT/HCPCS: 82043; 82570

== ENCOUNTER → 2025-10-05 05:00 | Outpatient (REF) | payer MEDICARE, MEDICAID, SELFPAY ==
--- OUTSIDE RECORDS SUMMARY | 2025-10-05 04:12 | XMS RPT_ITS | CCD ---
Author Organization [facility] Care Team Providers Care Mule Tender Name Role Phone SIXTO CALIXTO Unavailable Unavailable [...] Dr. Jarred Lopez Primary Care Provider [phone] Dr. Kelechi Geller Emergency Provider Dr. Kathia Shine Admit Provider Dr. Kathia Shine Other Provider FRANSISCO Rivas Attending Provider Unavail able Dr. Kathia Shine Attending Provider Dr. Ramez Prieto Attending Provider Dr. Ramez Prieto Other Provider FRANSISCO Eng NP Attending Provider Unavailable Primary Care Provider UnavailDr. Ana Mckeon Attending Provider Dr. Ana Rivera Other Provider Dr. Bronson Retana Emergency Provider [phone] Sementi, Dr. Yanna Stern Admit Provider Semenrose, Dr. Yanna Stern Attending Provider Luis Felipe, Dr. Yanna Stern Other Provider Dr. Mian Lee Attending Provider Dr. Ganesh Garcia Primary Care Provider Yimi INSTRUMENT MAN, JED-C Ana Maria Attending Provider Unav Dr. Scott Salamanca Referring Provider Dr. Tip Hamilton Emergency Provider Serene, Dr. Hansa Abdullahi Admit Provider Dr. Hansa Cast Other Provider Dr. Júnior Lombardo Attending Provider Dr. Júnior Lombardo Other Provider Miriam Cote Attending Provider Unavailable Dr. Ganesh Garcia Referring Provider Rakesh ADKINS, JED-Zeus Pineda Attending Provider Dr. Jarred Lopez Primary Care Provider [phone] Dr. Ramez Prieto Other Provider Dr. Ramez [...] Provider Dr. Ganesh Garcia Referring Provider Rakesh INSTRUMENT MAN, INSTRUMENT MAN-C Miriam Attending Provider Dr. Ganesh Garcia Primary Care Provider Dr. Ganesh Garcia Primary Care Provider Dr. Ganesh Garcia Referring Provider Rakesh INSTRUMENT MAN, INSTRUMENT MAN-C Miriam Attending Provider Dr. Lizet Linares Primary Care Provider [phone] Yimi INSTRUMENT MAN, INSTRUMENT MAN-C Ana Maria Attending Provider Cynthiav Dr. Lizet Coronel Attending Provider [phone] Yimi OLS, INSTRUMENT MAN-C Ana Maria Attending Provider [phone] Unavailable Primary Care Provider [facility] Dr. Lizet Chung Primary Care Provider Yimi INSTRUMENT MAN, INSTRUMENT MAN-C Ana Maria Attending Provider Unav Dr. Lizet Coronel Attending Provider [phone] Yimi NOLASCO, INSTRUMENT MAN-C Ana Maria Attending Provider [phone] Dwayne Lopez MD Primary Care Provider Dr. Lizet Linares Primary Care Provider [phone] Yimi INSTRUMENT MAN, INSTRUMENT MAN-C Ana Maria Attending Provider Unav Dr. Lizet Coronel Attending Provider [phone] Dr. Ganesh Garcia Referring Provider Rakesh INSTRUMENT MAN, INSTRUMENT MAN-C Miriam Attending Provider Dr. Lizet Linares Primary Care Provider [phone] Dr. Lizet Linares Attending Provider [phone] Yimi INSTRUMENT MAN, INSTRUMENT MAN-C Ana Maria Attending Provider Unav Dr. Jarred [...] Dr. Juan Valencia Attending Provider Dr. Jarred Loepz Primary Care Provider [phone] Dr. Zack Choi Emergency Provider Dr. John [...] Provider Dr. Ana Rivera Other Provider Yimi INSTRUMENT MAN, INSTRUMENT MAN-C Ana Maria Attending Provider Dr. Lizet Linares Attending Provider Dr. Chavez Alcala Referring Provider Dwayne Lopez MD Primary Care Provider Unavailable Primary Care Provider Unavailabl e Dwayne Lopez MD Primary Care Provider Podlogar [employer] SALES.DEYANIRA, Jesica Unavailable Kn[place]le [employer]IDE [employer] SALES.GLUE REEL OPERATOR, Annabel Unavailable Dr. Lizet Linares MD [...] Dr. Zack Choi DO Attending Provider Kngrisel [employer]IDE [employer] SALES.GLUE REEL OPERATOR, Annabel Unavailable Dr. Lizet Linares MD Primary Care Provider Milagros SANTANA Dr. Efewongbe Attending Provider [phone] Milagros SANTANA, Lizet Attending Provider Claude Morejon Attending Provider Jimbo TIRADO, Dr. Dixon Attending Provider Dr. Zack Choi DO Emergency Provider [place] INSTRUMENT MAN-C, Ana Maria Attending Provider Milagros SANTANA, Dr. Hinds Referring Provider Shonda Glover Attending Provider [place] INSTRUMENT MAN-C, Ana Maria Attending Provider [phone] Lizet Linares MD Referring Provider Annabel Mack APRN.CNP Unavailable Milagros SANTANA, Dr. Hinds Primary Care Provider Milagros SANTANA, Dr. Hinds Attending Provider [phone] Milagros SANTANA, Lizet Attending Provider UnavailClaude Perez Attending Provider Dr. Lizet Linares MD Primary Care Provider Yimi INSTRUMENT MAN-C, Ana Maria Attending Provider Dr. Lizet Linares MD Primary Care Provider Milagros SANTANA, Dr. Hinds Attending Provider [phone] Dr. Raúl Alejo DO Emergency Provider Griffin SANTANA, Dr. Estrella Emergency Provider Unavailab brenda Alcala DO, Dr. Byrne Admit Provider Dr. Chavez Alcala DO Attending Provider Dr. Lizet Linares MD Primary Care Provider [place] INSTRUMENT MAN-C, Ana Maria Attending Provider [place] INSTRUMENT MAN-C, Ana Maria Attending Provider Liezt Linares MD Attending Provider Unavailjosé manuel Portere [...] Maria Moise Attending Physician Brenda TIRADO, Dr. Olsen Attending Physician Brenda TIRADO, Dr. Olsen Emergency Department Physician Griffin SANTANA, Dr. Estrella Emergency Department Physici an Unavailable Fredrick TIRADO, Dr. Byrne Admitting Physician Fredrick TIRADO, Dr. Byrne Nurse Practitioner Colin SANTANA, Dr. Lopez Attending Physician Unavail ariana Chiang MD, Dr. Martinez Nurse Practitioner Chcaorta SANTANA, Dr. Martinez Nurse Practitioner Colin SANTANA, [...] Oleghe OLS, Efewongbe Attending Unavailabl e [place] INSTRUMENT MAN, Ana Maria Attending Unavailable Oleghe, Efewongbe Primary Care Unavailable Oleghe, Efewongbe Primary Care Unavailable [place] INSTRUMENT MAN, Ana Maria Attending Unavailable Oleghe, Efewongbe Primary [...] Oleghe OLS, Efewongbe Attending Unavailabl e Yimi INSTRUMENT MANAna Maria Attending Unavailable Oleghe, Efewongbe Primary Care [...] Unavailable Oleghe, Efewongbe Primary Care Unavailable Yimi INSTRUMENT MANAna Maria Attending Unavailable Oleghe, Efewongbe Primary Care Unavailable Oleghe, Efewongbe Attending Unavailable Oleghe, Efewongbe Primary Care Unavailable Oleghe, Efewongbe Primary Care Unavailable Claude Cain Attending Unavailable Oleghe, Efewongbe Primary Care Unavailable Ana Maria Geller NP Attending Unavailable Oleghe, Efewongbe Referring Unavailable Oleghe, Efewongbe Primary Care Unavailable Shonda Glover Attending Unavail able Ana Maria Geller NP Attending Unavailable Oleghe, Efewongbe Primary Care Unavailable Yimi INSTRUMENT MANAna Maria Attending Unavailable Oleghe, Efewongbe Primary Care [...] Unavail able Oleghe, Efewongbe Primary Care Unavailable Juna Whatley Consulting Unavailable Myra Ayman Referring Unavailable [...] Oleghe OLS, Efewongbe Attending Unavailabl e [place] INSTRUMENT MAN, Ana Maria Attending Unavailable Oleghe, Efewongbe Primary Care Unavailable [place] INSTRUMENT MAN, Ana Maria Attending Unavailable Oleghe, Efewongbe Primary Care Unavailable [place] INSTRUMENT MAN, Ana Maria Attending Unavailable Oleghe, Efewongbe Primary Care Unavailable Juan Whatley Attending Unavailable Oleghe, Efewongbe Referring Unavailable Oleghe, Efewongbe Primary Care Unavailable Juan Whatley Attending Unavailable Oleghe, Efewongbe Referring Unavailable Oleghe, Efewongbe Primary Care Unavailable [place] INSTRUMENT MAN, Ana Maria Attending Unavailable Oleghe, Efewongbe Primary Care Unavailable [place] INSTRUMENT MAN, Ana Maria Attending Unavailable Oleghe, Efewongbe Primary Care Unavailable Oleghe, Efewongbe Primary Care Unavailable Shonda Glover Referring Unavail able Shonda Glover Consulting Unavail able Júnior Lombardo Attending Unavailable Oleghe, Efewongbe Primary Care Unavailable [place] INSTRUMENT MAN, Ana Amria Attending Unavailable Oleghe, Efewongbe Primary Care Unavailable [...] ciprofloxacin; Translations: [CIPROFLOXACIN] Drug Allergy 8 Swelling [facility] Repository (20 sources) codeine; Translations: [CODEINE] Drug Allergy 4 Hives, Itching [facility] Repository (20 sources) ibuprofen; Translations: [IBUPROFEN] Drug Allergy 7 [facility] Repository (20 sources) metFORMIN; Translations: [METFORMIN] Drug Allergy 7 Intolerance [facility] Repository (20 sources) naproxen; Translations: [NAPROXEN] Drug Allergy 7 [facility] (20 sources) Penicillins; Translations: [PENICILLINS] Propensity to adverse reactions (disorder) 7 [facility]ository (20 sources) traMADol; Translations: [TRAMADOL HCL] Drug Allergy 7 [facility] Repository (1 source) Ciprofloxacin Drug Allergy 7 [facility] Work Phone: (1 source) Ketorolac Drug Allergy itching [facility] Work Phone: [phone] (1 source) Naproxen Drug Allergy 0 eyes swell, hives [facility] Work Phone: (1 source) Penicillin V Drug Allergy hives [facility] Work Phone: (1 source) traMADol Drug Allergy face swells [facility] Work Phone: (20 sources) celecoxib Drug Allergy 0 Rash [facility] (20 sources) Ciprofloxacin; Translations: [ciprofloxacin HCl] Drug Allergy 2 Swelling [facility] (20 sources) Ketorolac Drug Allergy 9 GI Upset [facility] Work Phone: (11 sources) tirzepatide; Translations: [tirzepatide] Propensity to adverse reactions 5 [facility] (1 source) celecoxib Drug Allergy 5 [facility] (1 source) Ketorolac Drug Allergy 5 [facility] Repository Medications Current Medications Medication [...] times daily as needed for pain Hydrocodone-Acetaminophen ([place] 5-325 Tablet) 1 EACH tablet Discontinued 1 [...] CELEXA TABS as directed CITALOPRAM HYDROBROMIDE TABS [id number] Angelika De La Torre LPN cyclobenzaprine hydrochloride [...] three times daily as needed CYCLOBENZAPRINE HCL [id number] Yaw Cabrera MD docusate sodium 50 mg / wanda ragsdale, alf 8.6 mg oral tablet (20 sources) Start: [...] 50 MCG/ACT SUSP 2spray/nostril daily FLUTICASONE PROPIONATE [id number] Angelika De La Torre LPN Comment on [...] 50 units at bedtime INSULIN GLARGINE SOLN [id number] Brenda Arthur MD Start: 03-10-2010 LANTUS SOLOSTA R SOPN 42 units at bedtimes INSULIN GLARGINE SOLN [id number] Brenda Arthur MD LANTUS SOLN 42 u nits at bedtime INSULIN GLARGINE SOLN [id number] Brenda Arthur MD LANTUS SOLOSTAR SOPN 32 units at bedtimes INSULIN GLARGINE SOLN [id number] Beth Doyle MA Comment on above: Inject [...] SOLN a s directed INSULIN LISPRO SOLN [id number] Angelika De La Torre LPN insulin lispro [...] SYNTHROID TABS as directed LEVOTHYROXINE SODIUM TABS [id number] Angelika De La Torre LPN Start: 02-22-2015 End: 03-19-2016 Start: 08-14-2010 End: 07-28-2017 take 1 tablet by mouth once daily LEVOTHYROXINE SODIUM 75 MCG TABS One tablet by mouth daily LEVOTHYROXINE SODIUM [id number] Brenda Arthur MD Comment on above: Take [...] 1/2 tablet orally twice daily METOPROLOL TARTRATE [id number] Angelika De La Torre LPN nitroglycerin 0.4 [...] Disp Un it Discontinued 0 .ROUTE .MEDSUPPLY [facility] June 23, 2021 12:00am November 24, 2023 [...] daily as needed for anxiety attacks ALPRAZOLAM [id number] Beth K Yanira MA Alum-Mag Hydroxide-Simeth (Mylanta [...] TABS one tablet by mouth daily ASPIRIN [id number] Brenda Arthur MD Comment on above: DAILY@0800 azithromycin 250 mg oral tablet (1 source) Macrolide Antimicrobial Start: 07-28-20 AZITHROMYCIN 250 MG TABS 2 tablets today, then 1 tablet daily on days 2 through 11 AZITHROMYCIN [id number] Michael REYNOLDS busPIRone hydrochloride 10 mg oral tablet (2 sources) Start: 03-10-20 End: 08-14-20 take 1 tablet by mouth twice daily BUSPAR 10 MG TABS One tablet by mouth twice daily BUSPIRONE HCL [id number] Brenda Arthur MD cholecalciferol 0.05 mg chewable tablet (6 sources) Vitamin D Start: 12-26-19 End: 04-07-20 take 1 tablet by mouth once daily cholecalciferol, vitamin D3, 2,000 unit chew Take 1 tablet by mouth once daily. 30 tablet 11 12/26/2019 04/07/2023 Discontinued (Other) Comment on above: [facility] clindamycin 150 mg oral capsule (17 sources) Lincosamide Antibacterial Start: 05-26-20 End: 06-01-20 Start: 04-23-2023 End: 04-30-2023 take 1 capsule by mouth three times daily clindamycin (CLEOCIN) 300 mg capsule Indications: Toothache Take 1 capsule by mouth three times daily for 7 days. 21 capsule 0 04/23/2023 04/30/2023 Active Comment on above: Take 1 capsule by mo [facility] three times daily for 7 days. Dulaglutide [...] / neomycin 3.5 mg/ml / polymyxin b 53534 unt/ml otic suspension (20 sources) Aminoglycoside Antibacterial, Polymyxin-class Antibacterial, Corticosteroid Start: 08-14-2017 End: 12-10-2017 Start: 08-14-2017 End: 12-10-2017 Ppgpeecc-Nbstdlxqy-Pt 10 ML drops,suspension Discontinued 4 NMA OT [...] scale INSULIN ASPART PROT & ASPART SUSP [id number] Beth Doyle MA 3 ml insulin, aspart, human 100 unt/ml pen injector (2 sources) Insulin Analog Start: 03-10-2010 End: 07-28-2017 NOVOLOG FLEXPEN SOLN 12 units SC at breakfast, 10 units SC at lunch, 10 units SC at supper INSULIN ASPART SOLN [id number] Angelika De La Torre LPN levoFLOXacin 750 [...] TABS One tablet by mouth daily LISINOPRIL [id number] Brenda Arthur MD LORazepam 0.5 mg oral [...] affected ar ea three times daily. nystatin 413387 unt/ml oral suspension (20 sources) Polyene Antifungal [...] mouth four times daily PRN OXYCODONE HCL [id number] Yaw Cabrera MD polyethylene glycol 3350 34232 mg powder for oral solution (20 sources) [...] CREA affected area twice daily TRIAMCINOLONE ACETONIDE [id number] Brenda Arthur MD CHOLECALCIFEROL CAPS (1 source) Start: 07-28-2017 VITAMIN D CAPS as directed CHOLECALCIFEROL CAPS [id number] Angelika De La Torre LPN Problems Active [...] Coronary atherosclerosis; Translations: [Atherosclerotic heart disease of [place] coronary artery without angina pectoris] Onset: 5 [...] sources) Long-term current use of anticoagulant; Translations: [penitentiary (current) use of anticoagulants] 01-20-2024 Episodic Other [...] Anion gap [Moles/Vol] 13 mmol/L - [facility] BUN/creatinine ratioOrdered By: Ana Maria Geller on 07-26-2025 Urea nitrogen/Creatinine [Mass ratio] 22.4 mg/mg High - [facility] Carbon dioxide, total [Moles /volume] in Central venous bloodOrdered By: Ana Maria Geller on 07-26-2025 CO2 [Moles/Vol] 24.9 mmol/L 21.0-32.0 [facility] Chloride assayOrdered By: Heraclio Geller on 07-26-2025 Chloride [Moles/Vol] 97 mmol/L Low 98-108 [facility] Glomerular filtration rate ( GFR) estimation/1.73 sq m using serum, plasma, or whole bOrdered By: Ana Maria Geller on 07-26-2025 GFR/1.73 sq M.predicted among non-blacks MDRD (S/P/Bld) [Vol rate/Area] 54 mL/min/{1.73_m2} Low >60 [facility] Hemoglobin A1c percentageOrd ered By: Ana Maria Geller on 07-26-2025 HbA1c (Bld) [Mass fraction] 9.4 % High <5.7 [facility] Potassium measurement (mass/ volume)Ordered By: Ana Maria Geller on 07-26-2025 Potassium (Unsp spec) [Mass/Vol] 3.9 mmol/L 3.3-5.1 [facility] Serum creatinine measurement (mass/volume)Ordered By: Ana Maria Geller on 07-26-2025 Creatinine [Mass/Vol] 1.15 mg/dL 0.70-1.20 [facility] Serum glucose measurement (m ass/volume)Ordered By: Ana Maria Geller on 07-26-2025 Glucose [Mass/Vol] 213 mg/dL High 70-99 [facility] Serum or plasma calcium tai urement (mass/volume)Ordered By: Ana Maria Geller on 07-26-2025 Calcium [Mass/Vol] 9.0 mg/dL 7.6-11.0 [facility] Serum or plasma urea nitroge n measurement (mass/volume)Ordered By: Ana Maria Geller on 07-26-2025 Urea nitrogen [Mass/Vol] 26 mg/dL High 4-19 [facility] Sodium levelOrdered By: Patrizia Geller on 07-26-2025 Sodium [Moles/Vol] 135 mmol/L 133-145 [facility] Magnetic resonance imaging r eportOrdered By: Iron Carbajal on 07-09-2025 Study report [facility] Hemoglobin A1c percentageOrd ered By: Lizet Linares on 07-06-2025 HbA1c (Bld) [Mass fraction] 9.3 % High <5.7 [facility] Absolute lymphocyte countOrd ered By: Lizet Linares on 06-28-2025 Lymphocytes Auto (Unsp spec) [#/Vol] 2.50 10*3/uL 0.83-4.51 [facility] Anion gap in Serum or Plasma Ordered By: Lizet Linares on 06-28-2025 Anion gap [Moles/Vol] 11 mmol/L 5-15 [facility] Automated lymphocyte count a s percentage of total leukocytesOrdered By: Lizet Linares on 06-28-2025 Lymphocytes/100 WBC Auto (Unsp spec) 31.3 % 19-41 [facility] BUN/creatinine ratioOrdered By: Lizet Linares on 06-28-2025 Urea nitrogen/Creatinine [Mass ratio] 21.2 mg/mg High 10-20 [facility] Basophil percentageOrdered B y: Lizet Linares on 06-28-2025 Basophils/100 WBC (Bld) 0.5 % 0-1 [facility] Carbon dioxide, total [Moles /volume] in Central venous bloodOrdered By: Lizet Linares on 06-28-2025 CO2 [Moles/Vol] 23.4 mmol/L 21.0-32.0 [facility] Chloride assayOrdered By: Junie Linares on 06-28-2025 Chloride [Moles/Vol] 100 mmol/L 98-108 [facility] Eosinophil percentageOrdered By: Lizet Linares on 06-28-2025 Eosinophils/100 WBC (Bld) 1.4 % 0-5 [facility] Erythrocyte distribution wid th ratioOrdered By: Lizet Linares on 06-28-2025 Erythrocyte distribution width (RBC) [Ratio] 15.1 % High 11.6-14.6 [facility] Erythrocyte distribution wid th standard deviationOrdered By: Lizet Linares on 06-28-2025 Erythrocyte distribution width (RBC) [Ratio] 48.3 fl High 35.1-43.9 [facility] Glomerular filtration rate ( GFR) estimation/1.73 sq m using serum, plasma, or whole bOrdered By: Lizet Linares on 06-28-2025 GFR/1.73 sq M.predicted among non-blacks MDRD (S/P/Bld) [Vol rate/Area] 44 mL/min/{1.73_m2} Low >60 Wo [facility] Hematocrit Auto (Bld) [Volum e fraction]Ordered By: Lizet Linares on 06-28-2025 Hematocrit (Bld) [Volume fraction] 31.3 % Low 37-47 [facility] Hemoglobin measurementOrdere d By: Lizet Linares on 06-28-2025 Hemoglobin (Bld) [Mass/Vol] 9.9 g/dL Low 12.0-15.0 [facility] Immature granulocytes/100 WB C Auto (Bld)Ordered By: Lizet Linares on 06-28-2025 Immature granulocytes/100 WBC (Bld) 0.500 % 0.0-0.9 [facility] MCV (mean corpuscular volume ) determinationOrdered By: Lizet Linares on 06-28-2025 MCV (RBC) [Entitic vol] 86.5 fL 81-[address] [facility] Mean corpuscular hemoglobin (MCH) determinationOrdered By: christahartlandnatasha Linares on 06-28-2025 MCH (RBC) [Entitic mass] 27.3 pg 27.0-32.0 [facility] Monocyte percentageOrdered B y: Lizet Linares on 06-28-2025 Monocytes/100 WBC (Bld) 6.8 % 0-[address] [facility] Neutrophil percentageOrdered By: marcelle Linares on 06-28-2025 Neutrophils/100 WBC (Bld) 59.5 % 47-70 [facility] Platelet countOrdered By: Junie Linares on 06-28-2025 Platelets (Bld) [#/Vol] 378 10*3/uL 150-450 [facility] Potassium measurement (mass/ volume)Ordered By: Lizet Linares on 06-28-2025 Potassium (Unsp spec) [Mass/Vol] 4.2 mmol/L 3.3-5.1 [facility] RBC Auto (Bld) [#/Vol]Ordere d By: Lizet Linares on 06-28-2025 RBC (Bld) [#/Vol] 3.62 10*6/uL Low 4.2-5.4 [facility] Serum creatinine measurement (mass/volume)Ordered By: Lizet Linares on 06-28-2025 Creatinine [Mass/Vol] 1.38 mg/dL High 0.70-1.20 [facility] Serum glucose measurement (m ass/volume)Ordered By: Lizet Linares on 06-28-2025 Glucose [Mass/Vol] 342 mg/dL High 70-99 [facility] Serum or plasma calcium tai urement (mass/volume)Ordered By: Lizet Linares on 06-28-2025 Calcium [Mass/Vol] 8.2 mg/dL 7.6-11.0 [facility] Serum or plasma urea nitroge n measurement (mass/volume)Ordered By: Lizet Linares on 06-28-2025 Urea nitrogen [Mass/Vol] 29 mg/dL High 4-19 [facility] Sodium levelOrdered By: Holly Linares on 06-28-2025 Sodium [Moles/Vol] 134 mmol/L 133-145 [facility] White blood cell (WBC) count Ordered By: Lizet Linares on 06-28-2025 WBC (Bld) [#/Vol] 8.0 10*3/uL 4.4-11.0 [facility] TSH DL <= 0.005 mIU/L QnOrde red By: Lizet Linares on 06-11-2025 TSH Qn 3.570 uIU/mL 0.300-4.20 0 [facility] Bilirubin directOrdered By: Lizet Linares on 06-04-2025 Bilirubin.direct [Mass/Vol] 0.16 mg/dL 0.00-0.30 [facility] Bilirubin, totalOrdered By: Lizet Linares on 06-04-2025 Bilirubin [Mass/Vol] 0.35 mg/dL 0.00-1.30 [facility] - Chemistry and C hemistry - challengeOrdered By: Lizet Linares on 06-04-2025 AST [Catalytic activity/Vol] 34 U/L High <32 [facility] No Panel InformationOrdered By: Lizet Linares on 06-04-2025 34 U/L High <32 [facility] Serum globulin measurementOr dered By: Lizet Linares on 06-04-2025 Globulin (S) [Mass/Vol] 3.0 g/dL 2.2-4.2 [facility] Serum or plasma alanine russo otransferase (ALT) measurementOrdered By: Lizet Linares on 06-04-2025 ALT [Catalytic activity/Vol] 18 U/L <35 [facility] Serum or plasma albumin tai urement (mass/volume)Ordered By: Lizet Lianres on 06-04-2025 Albumin [Mass/Vol] 3.5 g/dL 3.4-4.8 [facility] Serum or plasma alkaline shante sphatase measurementOrdered By: Lizet Linares on 06-04-2025 ALP [Catalytic activity/Vol] 43 U/L 35-104 [facility] Total proteinOrdered By: Bart Linares on 06-04-2025 Protein [Mass/Vol] 6.5 g/dL 5.9-8.4 [facility] Absolute lymphocyte countOrd ered By: John Shaw on 06-01-2025 Lymphocytes Auto (Unsp spec) [#/Vol] 2.63 10*3/uL 0.83-4.51 [facility] Absolute neutrophil countOrd ered By: John Shaw on 06-01-2025 Neutrophils (Bld) [#/Vol] 3.9 10*3/uL 2.0-7.7 [facility] Anion gap in Serum or Plasma Ordered By: John Shaw on 06-01-2025 Anion gap [Moles/Vol] 11 mmol/L 5-15 [facility] Automated lymphocyte count a s percentage of total leukocytesOrdered By: John Shaw on 06-01-2025 Lymphocytes/100 WBC Auto (Unsp spec) 35.9 % 19-41 [facility] BUN/creatinine ratioOrdered By: John Shaw on 06-01-2025 Urea nitrogen/Creatinine [Mass ratio] 17.9 mg/mg 10-20 [facility] Basophil percentageOrdered B y: John Shaw on 06-01-2025 Basophils/100 WBC (Bld) 1.0 % 0-[address] [facility] Carbon dioxide, total [Moles /volume] in Central venous bloodOrdered By: John Shaw on 06-01-2025 CO2 [Moles/Vol] 22.5 mmol/L 21.0-32.0 [facility] Chloride assayOrdered By: Albert Shaw on 06-01-2025 Chloride [Moles/Vol] 101 mmol/L 98-108 [facility] Eosinophil percentageOrdered By: John Shaw on 06-01-2025 Eosinophils/100 WBC (Bld) 2.7 % 0-5 [facility] Erythrocyte distribution wid th ratioOrdered By: John Shaw on 06-01-2025 Erythrocyte distribution width (RBC) [Ratio] 15.0 % High 11.6-14.6 [facility] Erythrocyte distribution wid th standard deviationOrdered By: John Shaw on 06-01-2025 Erythrocyte distribution width (RBC) [Ratio] 48.1 fl High 35.1-43.9 [facility] Glomerular filtration rate ( GFR) estimation/1.73 sq m using serum, plasma, or whole bOrdered By: John Shaw on 06-01-2025 GFR/1.73 sq M.predicted among non-blacks MDRD (S/P/Bld) [Vol rate/Area] 54 mL/min/{1.73_m2} Low >60 [facility] Comment on above: mL/min/1.73m2 CKD-EP I Creatinine Equation (2020) Glucose measurement at bedsi deOrdered By: John Shaw on 06-01-2025 Glucose [Mass/Vol] 204 mg/dL High 74-106 [facility] Comment on above: MANAGEMENT OF PATIEN T CARE PER NURSING PROTOCOL Hematocrit Auto (Bld) [Volum e fraction]Ordered By: John Shaw on 06-01-2025 Hematocrit (Bld) [Volume fraction] 34.7 % Low 37-47 [facility] Hemoglobin measurementOrdere d By: John Shaw on 06-01-2025 Hemoglobin (Bld) [Mass/Vol] 10.7 g/dL Low 12.0-15.0 [facility] Immature granulocytes/100 WB C Auto (Bld)Ordered By: John Shaw on 06-01-2025 Immature granulocytes/100 WBC (Bld) 1.400 % High 0.0-0.9 [facility] Comment on above: IG% - Immature Granu locytes (promyelocytes, myelocytes and metamyelocytes) > 1% indicates that a LEFT SHIFT is Present. MCV (mean corpuscular volume ) determinationOrdered By: John Shaw on 06-01-2025 MCV (RBC) [Entitic vol] 88.7 fL 81-[address] [facility] Mean corpuscular hemoglobin (MCH) determinationOrdered By: John Shaw on 06-01-2025 MCH (RBC) [Entitic mass] 27.4 pg 27.0-32.0 [facility] Mean corpuscular hemoglobin concentration (MCHC) determinationOrdered By: John Shaw on 06-01-2025 MCHC (RBC) [Mass/Vol] 30.8 g/dL Low 32-36 [facility] Mean platelet volume determi nationOrdered By: John Shaw on 06-01-2025 Platelet mean volume (Bld) [Entitic vol] 9.3 fL 6.2-12.0 [facility] Monocyte percentageOrdered B y: John Shaw on 06-01-2025 Monocytes/100 WBC (Bld) 5.5 % 0-[address] [facility] Neutrophil percentageOrdered By: John Shaw on 06-01-2025 Neutrophils/100 WBC (Bld) 53.5 % 47-70 [facility] Nucleated red blood cell per centageOrdered By: John Shaw on 06-01-2025 Nucleated RBC/100 WBC (Bld) [Ratio] 0 % 0-5 [facility] Platelet countOrdered By: Albert Shaw on 06-01-2025 Platelets (Bld) [#/Vol] 384 10*3/uL 150-450 [facility] Potassium measurement (mass/ volume)Ordered By: John Shaw on 06-01-2025 Potassium (Unsp spec) [Mass/Vol] 4.1 mmol/L 3.3-5.1 [facility] RBC Auto (Bld) [#/Vol]Ordere d By: John Shaw on 06-01-2025 RBC (Bld) [#/Vol] 3.91 10*6/uL Low 4.2-5.4 [facility] Serum creatinine measurement (mass/volume)Ordered By: John Shaw on 06-01-2025 Creatinine [Mass/Vol] 1.16 mg/dL 0.70-1.20 [facility] Serum glucose measurement (m ass/volume)Ordered By: John Shaw on 06-01-2025 Glucose [Mass/Vol] 181 mg/dL High 70-99 [facility] Serum or plasma calcium tai urement (mass/volume)Ordered By: John Shaw on 06-01-2025 Calcium [Mass/Vol] 9.1 mg/dL 7.6-11.0 [facility] Serum or plasma urea nitroge n measurement (mass/volume)Ordered By: John Shaw on 06-01-2025 Urea nitrogen [Mass/Vol] 21 mg/dL High 4-19 [facility] Sodium levelOrdered By: David Shaw on 06-01-2025 Sodium [Moles/Vol] 135 mmol/L 133-145 [facility] Trough vancomycin levelOrder ed By: Juan Chiang on 06-01-2025 Vancomycin trough [Mass/Vol] 17.6 ug/mL High 5.0-15.0 [facility] Comment on above: Recommended goal tro ugh [...] therapy recommended for serious lifethreatening infections include:- Zeiboxwhfx-Ymunqpgqwicj-Bryrtstpy (Ventilator/Healtcare Associated)-Sepsis PLEASE CONTACT PHARMACY SERVICES (#9404) FOR INTERPRETATIONOF RESULTS. White blood cell (WBC) count Ordered By: John Shaw on 06-01-2025 WBC (Bld) [#/Vol] 7.3 10*3/uL 4.4-11.0 [facility] Gram stainOrdered By: Juan Whatley on 05-30-2025 Microscopic observation Gram stain Nom (Unsp spec) [facility] Magnesium measurement (mass/ volume)Ordered By: John Shaw on 05-30-2025 Magnesium (Unsp spec) [Mass/Vol] 2.2 mg/dL 1.5-2.2 [facility] Routine wound cultureOrdered By: Juan Whatley on 05-30-2025 Microbial culture, routine Meth. resistant Staph. aureus Abnormal [facility] Absolute lymphocyte countOrd ered By: Delores Moya on 05-28-2025 Lymphocytes Auto (Unsp spec) [#/Vol] 1.82 10*3/uL 0.83-4.51 [facility] Absolute neutrophil countOrd ered By: Delores Moya on 05-28-2025 Neutrophils (Bld) [#/Vol] 4.1 10*3/uL 2.0-7.7 [facility] Anion gap in Serum or Plasma Ordered By: Delores Moya on 05-28-2025 Anion gap [Moles/Vol] 13 mmol/L 5-15 [facility] Automated lymphocyte count a s percentage of total leukocytesOrdered By: Delores Moya on 05-28-2025 Lymphocytes/100 WBC Auto (Unsp spec) 27.3 % 19-41 [facility] BUN/creatinine ratioOrdered By: Delores Moya on 05-28-2025 Urea nitrogen/Creatinine [Mass ratio] 17.7 mg/mg 10-20 [facility] Basophil percentageOrdered B y: Delores Moya on 05-28-2025 Basophils/100 WBC (Bld) 0.7 % 0-[address] [facility] Blood cultureOrdered By: Victoria Moya on 05-28-2025 Bacteria identified Cx Nom (Bld) No growth in 5 days. [facility] Bacteria identified Cx Nom (Bld) No growth in 5 days. [facility] Carbon dioxide, total [Moles /volume] in Central venous bloodOrdered By: Delores Moya on 05-28-2025 CO2 [Moles/Vol] 22.7 mmol/L 21.0-32.0 [facility] Chloride assayOrdered By: Edis Moya on 05-28-2025 Chloride [Moles/Vol] 97 mmol/L Low 98-108 [facility] Eosinophil percentageOrdered By: Delores Moya on 05-28-2025 Eosinophils/100 WBC (Bld) 1.3 % 0-5 [facility] Erythrocyte distribution wid th ratioOrdered By: Delores Moya on 05-28-2025 Erythrocyte distribution width (RBC) [Ratio] 14.7 % High 11.6-14.6 [facility] Erythrocyte distribution wid th standard deviationOrdered By: Delores Moya on 05-28-2025 Erythrocyte distribution width (RBC) [Ratio] 46.3 fl High 35.1-43.9 [facility] Glomerular filtration rate ( GFR) estimation/1.73 sq m using serum, plasma, or whole bOrdered By: Delores Moya on 05-28-2025 GFR/1.73 sq M.predicted among non-blacks MDRD (S/P/Bld) [Vol rate/Area] 42 mL/min/{1.73_m2} Low >60 [facility] Comment on above: mL/min/1.73m2 CKD-EP I Creatinine Equation (2020) [facility] deOrdered By: Chavez Alcala on 05-28-2025 Glucose [Mass/Vol] 133 mg/dL High 74-106 [facility] Comment on above: MANAGEMENT OF PATIEN T CARE PER NURSING PROTOCOL Hematocrit Auto (Bld) [Volum e fraction]Ordered By: Delores Moya on 05-28-2025 Hematocrit (Bld) [Volume fraction] 35.1 % Low 37-47 [facility] Hemoglobin measurementOrdere d By: Delores Moya on 05-28-2025 Hemoglobin (Bld) [Mass/Vol] 11.2 g/dL Low 12.0-15.0 [facility] Immature granulocytes/100 WB C Auto (Bld)Ordered By: Delores Moya on 05-28-2025 Immature granulocytes/100 WBC (Bld) 0.300 % 0.0-0.9 [facility] Comment on above: IG% - Immature Granu locytes (promyelocytes, myelocytes and metamyelocytes) > 1% indicates that a LEFT SHIFT is Present. Lactic acid measurementOrder ed By: Delores Moya on 05-28-2025 Lactate [Moles/Vol] 1.2 mmol/L 0.0-2.0 [facility] MCV (mean corpuscular volume ) determinationOrdered By: Delores Moya on 05-28-2025 MCV (RBC) [Entitic vol] 86.2 fL 81-[address] [facility] Mean corpuscular hemoglobin (MCH) determinationOrdered By: Delores Moya on 05-28-2025 MCH (RBC) [Entitic mass] 27.5 pg 27.0-32.0 [facility] Mean corpuscular hemoglobin concentration (MCHC) determinationOrdered By: Delores Moya on 05-28-2025 MCHC (RBC) [Mass/Vol] 31.9 g/dL Low 32-36 [facility] Mean platelet volume determi nationOrdered By: Delores Moya on 05-28-2025 Platelet mean volume (Bld) [Entitic vol] 9.3 fL 6.2-12.0 [facility] Monocyte percentageOrdered B y: Delores Moya on 05-28-2025 Monocytes/100 WBC (Bld) 8.7 % 0-[address] [facility] Neutrophil percentageOrdered By: Delores Moya on 05-28-2025 Neutrophils/100 WBC (Bld) 61.7 % 47-70 [facility] Nucleated red blood cell per centageOrdered By: Delores Moya on 05-28-2025 Nucleated RBC/100 WBC (Bld) [Ratio] 0 % 0-5 [facility] Platelet countOrdered By: Edis Moya on 05-28-2025 Platelets (Bld) [#/Vol] 369 10*3/uL 150-450 [facility] Potassium measurement (mass/ volume)Ordered By: Delores Moya on 05-28-2025 Potassium (Unsp spec) [Mass/Vol] 4.1 mmol/L 3.3-5.1 [facility] RBC Auto (Bld) [#/Vol]Ordere d By: Delores Moya on 05-28-2025 RBC (Bld) [#/Vol] 4.07 10*6/uL Low 4.2-5.4 [facility] Serum creatinine measurement (mass/volume)Ordered By: Delores Moya on 05-28-2025 Creatinine [Mass/Vol] 1.43 mg/dL High 0.70-1.20 [facility] Serum glucose measurement (m ass/volume)Ordered By: Delores Moya on 05-28-2025 Glucose [Mass/Vol] 160 mg/dL High 70-99 [facility] Serum or plasma calcium tai urement (mass/volume)Ordered By: Delores Moya on 05-28-2025 Calcium [Mass/Vol] 8.9 mg/dL 7.6-11.0 [facility] Serum or plasma urea nitroge n measurement (mass/volume)Ordered By: Delores Moya on 05-28-2025 Urea nitrogen [Mass/Vol] 25 mg/dL High 4-19 [facility] Sodium levelOrdered By: Marck Moya on 05-28-2025 Sodium [Moles/Vol] 133 mmol/L 133-145 [facility] White blood cell (WBC) count Ordered By: Delores Moya on 05-28-2025 WBC (Bld) [#/Vol] 6.7 10*3/uL 4.4-11.0 [facility] Absolute lymphocyte countOrd ered By: Raúl Alejo on 05-26-2025 Lymphocytes Auto (Unsp spec) [#/Vol] 2.42 10*3/uL 0.83-4.51 [facility] Absolute neutrophil countOrd ered By: Raúl Alejo on 05-26-2025 Neutrophils (Bld) [#/Vol] 6.7 10*3/uL 2.0-7.7 [facility] Anion gap in Serum or Plasma Ordered By: Raúl Alejo on 05-26-2025 Anion gap [Moles/Vol] 12 mmol/L 5-15 [facility] Automated lymphocyte count a s percentage of total leukocytesOrdered By: Raúl Alejo on 05-26-2025 Lymphocytes/100 WBC Auto (Unsp spec) 24.6 % 19-41 [facility] BUN/creatinine ratioOrdered By: Raúl Alejo on 05-26-2025 Urea nitrogen/Creatinine [Mass ratio] 17.5 mg/mg 10-20 [facility] Basophil percentageOrdered B y: Raúl Alejo on 05-26-2025 Basophils/100 WBC (Bld) 0.4 % 0-[address] [facility] Carbon dioxide, total [Moles /volume] in Central venous bloodOrdered By: Raúl Alejo on 05-26-2025 CO2 [Moles/Vol] 22.0 mmol/L 21.0-32.0 [facility] Chloride assayOrdered By: Kwesi Alejo on 05-26-2025 Chloride [Moles/Vol] 98 mmol/L 98-108 [facility] Eosinophil percentageOrdered By: Raúl Alejo on 05-26-2025 Eosinophils/100 WBC (Bld) 0.6 % 0-5 [facility] Erythrocyte distribution wid th ratioOrdered By: Raúl Alejo on 05-26-2025 Erythrocyte distribution width (RBC) [Ratio] 14.6 % 11.6-14.6 [facility] Erythrocyte distribution wid th standard deviationOrdered By: Raúl Alejo on 05-26-2025 Erythrocyte distribution width (RBC) [Ratio] 45.9 fl High 35.1-43.9 [facility] Glomerular filtration rate ( GFR) estimation/1.73 sq m using serum, plasma, or whole bOrdered By: Raúl Alejo on 05-26-2025 GFR/1.73 sq M.predicted among non-blacks MDRD (S/P/Bld) [Vol rate/Area] 33 mL/min/{1.73_m2} Low >60 [facility] Comment on above: mL/min/1.73m2 CKD-EP I Creatinine Equation (2020) Hematocrit Auto (Bld) [Volum e fraction]Ordered By: Raúl Alejo on 05-26-2025 Hematocrit (Bld) [Volume fraction] 34.9 % Low 37-47 [facility] Hemoglobin measurementOrdere d By: Raúl Alejo on 05-26-2025 Hemoglobin (Bld) [Mass/Vol] 11.3 g/dL Low 12.0-15.0 [facility] Immature granulocytes/100 WB C Auto (Bld)Ordered By: Raúl Alejo on 05-26-2025 Immature granulocytes/100 WBC (Bld) 0.400 % 0.0-0.9 [facility] Comment on above: IG% - Immature Granu locytes (promyelocytes, myelocytes and metamyelocytes) > 1% indicates that a LEFT SHIFT is Present. MCV (mean corpuscular volume ) determinationOrdered By: Raúl Alejo on 05-26-2025 MCV (RBC) [Entitic vol] 85.7 fL 81-[address] [facility] Mean corpuscular hemoglobin (MCH) determinationOrdered By: Raúl Alejo on 05-26-2025 MCH (RBC) [Entitic mass] 27.8 pg 27.0-32.0 [facility] Mean corpuscular hemoglobin concentration (MCHC) determinationOrdered By: Raúl Alejo on 05-26-2025 MCHC (RBC) [Mass/Vol] 32.4 g/dL 32-36 [facility] Mean platelet volume determi nationOrdered By: Raúl Alejo on 05-26-2025 Platelet mean volume (Bld) [Entitic vol] 9.1 fL 6.2-12.0 [facility] Monocyte percentageOrdered B y: Raúl Alejo on 05-26-2025 Monocytes/100 WBC (Bld) 6.3 % 0-[address] [facility] Neutrophil percentageOrdered By: Raúl Alejo on 05-26-2025 Neutrophils/100 WBC (Bld) 67.7 % 47-70 [facility] Nucleated red blood cell per centageOrdered By: Raúl Alejo on 05-26-2025 Nucleated RBC/100 WBC (Bld) [Ratio] 0 % 0-5 [facility] Platelet countOrdered By: Kwesi Alejo on 05-26-2025 Platelets (Bld) [#/Vol] 349 10*3/uL 150-450 [facility] Potassium measurement (mass/ volume)Ordered By: Raúl Alejo on 05-26-2025 Potassium (Unsp spec) [Mass/Vol] 4.4 mmol/L 3.3-5.1 [facility] RBC Auto (Bld) [#/Vol]Ordere d By: Raúl Alejo on 05-26-2025 RBC (Bld) [#/Vol] 4.07 10*6/uL Low 4.2-5.4 [facility] Serum creatinine measurement (mass/volume)Ordered By: Raúl Alejo on 05-26-2025 Creatinine [Mass/Vol] 1.76 mg/dL High 0.70-1.20 [facility] Serum glucose measurement (m ass/volume)Ordered By: Raúl Alejo on 05-26-2025 Glucose [Mass/Vol] 243 mg/dL High 70-99 [facility] Serum or plasma calcium tai urement (mass/volume)Ordered By: Ralú Alejo on 05-26-2025 Calcium [Mass/Vol] 8.8 mg/dL 7.6-11.0 [facility] Serum or plasma urea nitroge n measurement (mass/volume)Ordered By: Raúl Alejo on 05-26-2025 Urea nitrogen [Mass/Vol] 31 mg/dL High 4-19 [facility] Sodium levelOrdered By: Raúl Alejo on 05-26-2025 Sodium [Moles/Vol] 132 mmol/L Low 133-145 [facility] White blood cell (WBC) count Ordered By: Raúl Alejo on 05-26-2025 WBC (Bld) [#/Vol] 9.9 10*3/uL 4.4-11.0 [facility] Absolute lymphocyte countOrd ered By: Lizet Linares on 05-07-2025 Lymphocytes Auto (Unsp spec) [#/Vol] 2.01 10*3/uL 0.83-4.51 [facility] Absolute neutrophil countOrd ered By: Lizet Linares on 05-07-2025 Neutrophils (Bld) [#/Vol] 3.3 10*3/uL 2.0-7.7 [facility] Anion gap in Serum or Plasma Ordered By: Lizet Linares on 05-07-2025 Anion gap [Moles/Vol] 12 mmol/L 5-15 [facility] Automated lymphocyte count a s percentage of total leukocytesOrdered By: Lizet Linares on 05-07-2025 Lymphocytes/100 WBC Auto (Unsp spec) 34.1 % 19-41 [facility] BUN/creatinine ratioOrdered By: Lizet Linares on 05-07-2025 Urea nitrogen/Creatinine [Mass ratio] 17.0 mg/mg 10-20 [facility] Basophil percentageOrdered B y: Asmitanatasha Crossjntal on 05-07-2025 Basophils/100 WBC (Bld) 0.5 % 0-[address] [facility] Carbon dioxide, total [Moles /volume] in Central venous bloodOrdered By: Lizet Linares on 05-07-2025 CO2 [Moles/Vol] 23.8 mmol/L 21.0-32.0 [facility] Chloride assayOrdered By: Junie christastacey Crossjntal on 05-07-2025 Chloride [Moles/Vol] 99 mmol/L 98-108 [facility] Eosinophil percentageOrdered By: Juniechristajanellnatasha Crossjntal on 05-07-2025 Eosinophils/100 WBC (Bld) 2.2 % 0-5 [facility] Erythrocyte distribution wid th ratioOrdered By: Juniechristastacey Tayjntal on 05-07-2025 Erythrocyte distribution width (RBC) [Ratio] 15.2 % High 11.6-14.6 [facility] Erythrocyte distribution wid th standard deviationOrdered By: christahartlandnatasha Crossjntal on 05-07-2025 Erythrocyte distribution width (RBC) [Ratio] 50.5 fl High 35.1-43.9 [facility] Glomerular filtration rate ( GFR) estimation/1.73 sq m using serum, plasma, or whole bOrdered By: Lizet Linares on 05-07-2025 GFR/1.73 sq M.predicted among non-blacks MDRD (S/P/Bld) [Vol rate/Area] 37 mL/min/{1.73_m2} Low >60 [facility] Comment on above: mL/min/1.73m2 CKD-EP I Creatinine Equation (2020) Hematocrit Auto (Bld) [Volum e fraction]Ordered By: Lizet Linares on 05-07-2025 Hematocrit (Bld) [Volume fraction] 34.0 % Low 37-47 [facility] Hemoglobin measurementOrdere d By: Lizet Linares on 05-07-2025 Hemoglobin (Bld) [Mass/Vol] 10.4 g/dL Low 12.0-15.0 [facility] Immature granulocytes/100 WB C Auto (Bld)Ordered By: Lizet Linares on 05-07-2025 Immature granulocytes/100 WBC (Bld) 0.500 % 0.0-0.9 [facility] Comment on above: IG% - Immature Granu locytes (promyelocytes, myelocytes and metamyelocytes) > 1% indicates that a LEFT SHIFT is Present. MCV (mean corpuscular volume ) determinationOrdered By: Lizet Linares on 05-07-2025 MCV (RBC) [Entitic vol] 92.1 fL 81-[address] [facility] Mean corpuscular hemoglobin (MCH) determinationOrdered By: Lizet Linares on 05-07-2025 MCH (RBC) [Entitic mass] 28.2 pg 27.0-32.0 [facility] Mean corpuscular hemoglobin concentration (MCHC) determinationOrdered By: Lizet Linares on 05-07-2025 MCHC (RBC) [Mass/Vol] 30.6 g/dL Low 32-36 [facility] Mean platelet volume determi nationOrdered By: Lizet Linares on 05-07-2025 Platelet mean volume (Bld) [Entitic vol] 10.0 fL 6.2-12.0 [facility] Monocyte percentageOrdered B y: Lizet Linares on 05-07-2025 Monocytes/100 WBC (Bld) 7.3 % 0-[address] [facility] Neutrophil percentageOrdered By: Lizet Linares on 05-07-2025 Neutrophils/100 WBC (Bld) 55.4 % 47-70 [facility] Nucleated red blood cell per centageOrdered By: Lizet Linares on 05-07-2025 Nucleated RBC/100 WBC (Bld) [Ratio] 0 % 0-5 [facility] Platelet countOrdered By: Junie Linares on 05-07-2025 Platelets (Bld) [#/Vol] 338 10*3/uL 150-450 [facility] Potassium measurement (mass/ volume)Ordered By: Lizet Linares on 05-07-2025 Potassium (Unsp spec) [Mass/Vol] 4.2 mmol/L 3.3-5.1 [facility] RBC Auto (Bld) [#/Vol]Ordere d By: Lizet Linares on 05-07-2025 RBC (Bld) [#/Vol] 3.69 10*6/uL Low 4.2-5.4 [facility] Serum creatinine measurement (mass/volume)Ordered By: Lizet Linares on 05-07-2025 Creatinine [Mass/Vol] 1.58 mg/dL High 0.70-1.20 [facility] Serum glucose measurement (m ass/volume)Ordered By: Lizet Linares on 05-07-2025 Glucose [Mass/Vol] 232 mg/dL High 70-99 [facility] Serum or plasma calcium tai urement (mass/volume)Ordered By: Lizet Linares on 05-07-2025 Calcium [Mass/Vol] 8.9 mg/dL 7.6-11.0 [facility] Serum or plasma urea nitroge n measurement (mass/volume)Ordered By: Lizet Linares on 05-07-2025 Urea nitrogen [Mass/Vol] 27 mg/dL High 4-19 [facility] Sodium levelOrdered By: Holly Linares on 05-07-2025 Sodium [Moles/Vol] 134 mmol/L 133-145 [facility] White blood cell (WBC) count Ordered By: Lizet Linares on 05-07-2025 WBC (Bld) [#/Vol] 5.9 10*3/uL 4.4-11.0 [facility] Anion gap in Serum or Plasma Ordered By: Lizet Linares on 04-25-2025 Anion gap [Moles/Vol] 12 mmol/L 5-15 [facility] BUN/creatinine ratioOrdered By: Lizet Linares on 04-25-2025 Urea nitrogen/Creatinine [Mass ratio] 21.3 mg/mg High 10-20 [facility] Carbon dioxide, total [Moles /volume] in Central venous bloodOrdered By: Lizet Linares on 04-25-2025 CO2 [Moles/Vol] 23.8 mmol/L 21.0-32.0 [facility] Chloride assayOrdered By: Junie Linares on 04-25-2025 Chloride [Moles/Vol] 100 mmol/L 98-108 [facility] Glomerular filtration rate ( GFR) estimation/1.73 sq m using serum, plasma, or whole bOrdered By: Lizet Linares on 04-25-2025 GFR/1.73 sq M.predicted among non-blacks MDRD (S/P/Bld) [Vol rate/Area] 44 mL/min/{1.73_m2} Low >60 [facility] Comment on above: mL/min/1.73m2 CKD-EP I Creatinine Equation (2020) Natriuretic peptide.B prohor ivory N-Terminal [Mass/volume] in Serum or PlasmaOrdered By: Lizet Linares on 04-25-2025 Natriuretic peptide.B prohormone N-Terminal [Mass/Vol] 220 pg/mL <900 [facility] Comment on above: Heart Failure Unlike ly: < 300 pg/mLHeart Failure Likely< 50 Years: > 450 pg/mL50-75 Years: > 900 pg/mL>75 Years: > 1800 pg/mL Potassium measurement (mass/ volume)Ordered By: Lizet Linares on 04-25-2025 Potassium (Unsp spec) [Mass/Vol] 4.4 mmol/L 3.3-5.1 [facility] Serum creatinine measurement (mass/volume)Ordered By: Lizet Linares on 04-25-2025 Creatinine [Mass/Vol] 1.38 mg/dL High 0.70-1.20 [facility] Serum glucose measurement (m ass/volume)Ordered By: Lizet Linares on 04-25-2025 Glucose [Mass/Vol] 217 mg/dL High 70-99 [facility] Serum or plasma calcium tai urement (mass/volume)Ordered By: Lizet Linares on 04-25-2025 Calcium [Mass/Vol] 9.2 mg/dL 7.6-11.0 [facility] Serum or plasma urea nitroge n measurement (mass/volume)Ordered By: Lizet Linares on 04-25-2025 Urea nitrogen [Mass/Vol] 29 mg/dL High 02-10 [facility] Sodium levelOrdered By: Holly stacey Milagros on 04-25-2025 Sodium [Moles/Vol] 135 mmol/L 133-145 [facility] TSH DL <= 0.005 mIU/L QnOrde red By: Lizet Linares on 04-25-2025 TSH Qn 24.000 uIU/mL High 0.300-4.20 0 [facility] Gram stainOrdered By: Hollybe weber Milagros on 04-12-2025 Microscopic observation Gram stain Nom (Unsp spec) [facility] Routine wound cultureOrdered By: Lizet Linares on 04-12-2025 Microbial culture, routine Meth. resistant Staph. aureus Abnormal [facility] Hemoglobin A1c percentageOrd ered By: Lizet Linares on 04-06-2025 HbA1c (Bld) [Mass fraction] 10.5 % High <5.7 [facility] Comment on above: Normal < 5.7 % Predi abetic 5.7 - 6.4 % Diabetic >or= 6.5 % Please note range changes. Hemoglobin A1c percentageOrd ered By: Lizet Linares on 03-29-2025 HbA1c (Bld) [Mass fraction] 10.8 % High <5.7 [facility] Comment on above: Normal < 5.7 % Predi abetic 5.7 - 6.4 % Diabetic >or= 6.5 % Please note range changes. TSH DL <= 0.005 mIU/L QnOrde red By: Lizet Linares on 03-29-2025 TSH Qn 5.840 uIU/mL High 0.300-4.20 0 [facility] Anion gap in Serum or Plasma Ordered By: Lizet Linares on 03-12-2025 Anion gap [Moles/Vol] 12 mmol/L 03-08 [facility] BUN/creatinine ratioOrdered By: Lizet Linares on 03-12-2025 Urea nitrogen/Creatinine [Mass ratio] 24.9 mg/mg High 08-13 [facility] Carbon dioxide, total [Moles /volume] in Central venous bloodOrdered By: Lizet Linares on 03-12-2025 CO2 [Moles/Vol] 23.0 mmol/L 21.0-32.0 [facility] Chloride assayOrdered By: Junie Linares on 03-12-2025 Chloride [Moles/Vol] 97 mmol/L Low 98-108 [facility] Glomerular filtration rate ( GFR) estimation/1.73 sq m using serum, plasma, or whole bOrdered By: Lizet Linares on 03-12-2025 GFR/1.73 sq M.predicted among non-blacks MDRD (S/P/Bld) [Vol rate/Area] 35 mL/min/{1.73_m2} Low >60 [facility] Comment on above: mL/min/1.73m2 CKD-EP I Creatinine Equation (2020) Potassium measurement (mass/ volume)Ordered By: Lizet Linares on 03-12-2025 Potassium (Unsp spec) [Mass/Vol] 4.3 mmol/L 3.3-5.1 [facility] Serum creatinine measurement (mass/volume)Ordered By: Lizet Linares on 03-12-2025 Creatinine [Mass/Vol] 1.64 mg/dL High 0.70-1.20 [facility] Serum glucose measurement (m ass/volume)Ordered By: Lizet Linares on 03-12-2025 Glucose [Mass/Vol] 428 mg/dL High 70-99 [facility] Serum or plasma calcium tai urement (mass/volume)Ordered By: Lizet Linares on 03-12-2025 Calcium [Mass/Vol] 8.6 mg/dL 7.6-11.0 [facility] Serum or plasma urea nitroge n measurement (mass/volume)Ordered By: Lizet Linares on 03-12-2025 Urea nitrogen [Mass/Vol] 41 mg/dL High 4-19 [facility] Sodium levelOrdered By: Holly Linares on 03-12-2025 Sodium [Moles/Vol] 132 mmol/L Low 133-145 [facility] Bilirubin directOrdered By: Ana Maria Geller on 03-05-2025 Bilirubin.direct [Mass/Vol] 0.12 mg/dL 0.00-0.30 [facility] Bilirubin, totalOrdered By: Ana Maria Geller on 03-05-2025 Bilirubin [Mass/Vol] 0.19 mg/dL 0.00-1.30 [facility] - Chemistry and C hemistry - challengeOrdered By: Ana Maria Geller on 03-05-2025 AST [Catalytic activity/Vol] 23 U/L <32 [facility] No Panel InformationOrdered By: Ana Maria Geller on 03-05-2025 23 U/L <32 [facility] Serum globulin measurementOr dered By: Ana Maria Geller on 03-05-2025 Globulin (S) [Mass/Vol] 2.7 g/dL 2.2-4.2 [facility] Serum or plasma alanine russo otransferase (ALT) measurementOrdered By: Ana Maria Geller on 03-05-2025 ALT [Catalytic activity/Vol] 24 U/L <35 [facility] Serum or plasma albumin tai urement (mass/volume)Ordered By: Ana Maria Geller on 03-05-2025 Albumin [Mass/Vol] 3.4 g/dL 3.4-4.8 [facility] Serum or plasma alkaline shante sphatase measurementOrdered By: Ana Maria Geller on 03-05-2025 ALP [Catalytic activity/Vol] 51 U/L 35-104 [facility] Total proteinOrdered By: Porter Geller on 03-05-2025 Protein [Mass/Vol] 6.1 g/dL 5.9-8.4 [facility] Absolute lymphocyte countOrd ered By: Zack Choi on 01-22-2025 Lymphocytes Auto (Unsp spec) [#/Vol] 2.95 10*3/uL 0.83-4.51 [facility] Absolute neutrophil countOrd ered By: Zack Choi on 01-22-2025 Neutrophils (Bld) [#/Vol] 4.6 10*3/uL 2.0-7.7 [facility] Absolute neutrophil count 4.6 X10^3/uL 2.0-7.7 [facility] Anion gap [Moles/Vol]Ordered By: Zack Choi on 01-22-2025 Anion gap in Serum or Plasma 12 5-15 [facility] Anion gap in Serum or Plasma Ordered By: Zack Choi on 01-22-2025 Anion gap [Moles/Vol] 12 mmol/L 5-15 [facility] Automated lymphocyte count a s percentage of total leukocytesOrdered By: Zack Choi on 01-22-2025 Lymphocytes/100 WBC Auto (Unsp spec) 35.8 % 19-41 [facility] BUN/creatinine ratioOrdered By: Zack Choi on 01-22-2025 Urea nitrogen/Creatinine [Mass ratio] 24.2 mg/mg High 10-20 [facility] BUN/creatinine ratio 24.2 RATIO High 10-20 [facility] Basophil percentageOrdered B y: Zack Choi on 01-22-2025 Basophils/100 WBC (Bld) 0.6 % 0-[address] [facility] Basophil percentage 0.6 % 0-1 [facility] Calcium [Mass/Vol]Ordered By : Zack Choi on 01-22-2025 Serum or plasma calcium measurement (mass/volume) 9.4 mg/dL 7.6-11.0 [facility] Carbon dioxide, total [Moles /volume] in Central venous bloodOrdered By: Zack Choi on 01-22-2025 CO2 [Moles/Vol] 22.3 mmol/L 21.0-32.0 [facility] Carbon dioxide, total [Moles/volume] in Central venous blood 22.3 mmol/L 21.0-32.0 [facility] Chloride assayOrdered By: Albert Choi on 01-22-2025 Chloride [Moles/Vol] 98 mmol/L 98-108 [facility] Chloride assay 98 mmol/L 98-108 [facility] Creatinine [Mass/Vol]Ordered By: Zack Choi on 01-22-2025 Serum creatinine measurement (mass/volume) 1.37 mg/dL High 0.70-1.20 [facility] Eosinophil percentageOrdered By: Zack Choi on 01-22-2025 Eosinophils/100 WBC (Bld) 1.0 % 0-5 [facility] Eosinophil percentage 1.0 % 0-5 [facility] Erythrocyte distribution wid th (RBC) [Ratio]Ordered By: Zack Choi on 01-22-2025 Erythrocyte distribution width ratio 14.1 % 11.6-14.6 [facility] Erythrocyte distribution wid th ratioOrdered By: Zack Choi on 01-22-2025 Erythrocyte distribution width (RBC) [Ratio] 14.1 % 11.6-14.6 [facility] Erythrocyte distribution wid th standard deviationOrdered By: Zack Choi on 01-22-2025 Erythrocyte distribution width (RBC) [Ratio] 44.8 fl High 35.1-43.9 [facility] Erythrocyte distribution width standard deviation 44.8 fl High 35.1-43.9 [facility] Estimation of creatinine jacqiu aranceOrdered By: Zack Choi on 01-22-2025 Estimation of creatinine clearance 43.47 ml/min Low 50-250 [facility] GFR/1.73 sq M.predicted adama g non-blacks MDRD (S/P/Bld) [Vol rate/Area]Ordered By: Zack Choi on 01-22-2025 Glomerular filtration rate (GFR) estimation/1.73 sq m using serum, plasma, or whole b 44 Low >60 [facility] Glomerular filtration rate ( GFR) estimation/1.73 sq m using serum, plasma, or whole bOrdered By: Zack Choi on 01-22-2025 GFR/1.73 sq M.predicted among non-blacks MDRD (S/P/Bld) [Vol rate/Area] 44 mL/min/{1.73_m2} Low >60 [facility] Comment on above: mL/min/1.73m2 CKD-EP I Creatinine Equation (2020) Glucose [Mass/Vol]Ordered By : Zack Choi on 01-22-2025 Serum glucose measurement (mass/volume) 245 mg/dL High 70-99 [facility] Hematocrit Auto (Bld) [Volum e fraction]Ordered By: Zack Choi on 01-22-2025 Hematocrit (Bld) [Volume fraction] 37.0 % 37-47 [facility] Automated blood hematocrit (percentage) 37.0 % 37-47 [facility] Hemoglobin measurementOrdere d By: Zack Choi on 01-22-2025 Hemoglobin (Bld) [Mass/Vol] 12.1 g/dL 12.0-15.0 [facility] Hemoglobin measurement 12.1 g/dL 12.0-15.0 [facility] Immature granulocytes/100 WB C Auto (Bld)Ordered By: Zack Choi on 01-22-2025 Immature granulocytes/100 WBC (Bld) 1.000 % High 0.0-0.9 [facility] Comment on above: IG% - Immature Granu locytes (promyelocytes, myelocytes and metamyelocytes) > 1% indicates that a LEFT SHIFT is Present. Automated immature granulocyte percentage 1.000 % High 0.0-0.9 [facility] Lymphocytes Auto (Unsp spec) [#/Vol]Ordered By: Zack Choi on 01-22-2025 Absolute lymphocyte count 2.95 X10^3/uL 0.83-4. 51 [facility] Lymphocytes/100 WBC Auto (Un sp spec)Ordered By: Zack Choi on 01-22-2025 Automated lymphocyte count as percentage of total leukocytes 35.8 % 19-41 [facility] MCV (RBC) [Entitic vol]Order ed By: Zack Choi on 01-22-2025 MCV (mean corpuscular volume) determination 87.5 fL 81-99 [facility] MCV (mean corpuscular volume ) determinationOrdered By: Zack Choi on 01-22-2025 MCV (RBC) [Entitic vol] 87.5 fL 81-99 [facility] Mean corpuscular hemoglobin (MCH) determinationOrdered By: Zack Choi on 01-22-2025 MCH (RBC) [Entitic mass] 28.6 pg 27.0-32.0 [facility] Mean corpuscular hemoglobin (MCH) determination 28.6 pg 27.0-32.0 [facility] Mean corpuscular hemoglobin concentration (MCHC) determinationOrdered By: Zack Choi on 01-22-2025 MCHC (RBC) [Mass/Vol] 32.7 g/dL 32-36 [facility] Mean corpuscular hemoglobin concentration (MCHC) determination 32.7 g/dL 32-36 [facility] Mean platelet volume determi nationOrdered By: Zack Choi on 01-22-2025 Platelet mean volume (Bld) [Entitic vol] 9.6 fL 6.2-12.0 [facility] Mean platelet volume determination 9.6 fl 6.2-12.0 [facility] Monocyte percentageOrdered B y: Zack Choi on 01-22-2025 Monocytes/100 WBC (Bld) 5.6 % 0-[address] [facility]ocyte [facility] 5.6 % 0-[facility] Neutrophil percentageOrdered By: Zack Choi on 01-22-2025 Neutrophils/100 WBC (Bld) 56.0 % 47-70 [facility] Neutrophil percentage 56.0 % 47-70 [facility] No Panel InformationOrdered By: Zack Choi on 01-22-2025 Troponin T High Sensitivity 54 ng/L High <14 [facility] Comment on above: Critical Result(s) C alled at 1135: by: JUANA GARDNER TO SANDY. Results read back by same. 54 ng/L High <14 [facility] Nucleated red blood cell per centageOrdered By: Zack Choi on 01-22-2025 Nucleated RBC/100 WBC (Bld) [Ratio] 0 % 0-5 [facility] Nucleated red blood cell percentage 0 % 0-5 [facility] Platelet countOrdered By: Albert Choi on 01-22-2025 Platelets (Bld) [#/Vol] 341 10*3/uL 150-450 [facility] Platelet count 341 K/mm3 150-450 [facility] Potassium (Unsp spec) [Mass/ Vol]Ordered By: Zack Choi on 01-22-2025 Potassium measurement (mass/volume) 4.4 mmol/L 3.3-5.1 [facility] Potassium measurement (mass/ volume)Ordered By: Zack Choi on 01-22-2025 Potassium (Unsp spec) [Mass/Vol] 4.4 mmol/L 3.3-5.1 [facility] RBC Auto (Bld) [#/Vol]Ordere d By: Zack Choi on 01-22-2025 RBC (Bld) [#/Vol] 4.23 10*6/uL 4.2-5.4 [facility] Automated blood erythrocyte count 4.23 M/mm3 4.2-5.4 [facility] Serum creatinine measurement (mass/volume)Ordered By: Zack Choi on 01-22-2025 Creatinine [Mass/Vol] 1.37 mg/dL High 0.70-1.20 [facility] Serum glucose measurement (m ass/volume)Ordered By: Zack Choi on 01-22-2025 Glucose [Mass/Vol] 245 mg/dL High 70-99 [facility] Serum or plasma calcium tai urement (mass/volume)Ordered By: Zack Choi on 01-22-2025 Calcium [Mass/Vol] 9.4 mg/dL 7.6-11.0 [facility] Serum or plasma urea nitroge n measurement (mass/volume)Ordered By: Zack Choi on 01-22-2025 Urea nitrogen [Mass/Vol] 33 mg/dL High - [facility] Sodium levelOrdered By: Sherman Choi on 01-22-2025 Sodium [Moles/Vol] 133 mmol/L 133-145 [facility] Sodium level 133 mmol/L 133-145 [facility] Troponin T.cardiac High sens itivity method [Mass/Vol]Ordered By: Zack Choi on 01-22-2025 Troponin T.cardiac [Mass/volume] in Serum or Plasma by High sensitivity method 48 ng/L High <14 [facility] Troponin T.cardiac [Mass/vol ume] in Serum or Plasma by High sensitivity methodOrdered By: Zack Choi on 01-22-2025 Troponin T.cardiac High sensitivity method [Mass/Vol] 48 ng/L High <14 [facility] Urea nitrogen [Mass/Vol]Orde red By: Zack Choi on 01-22-2025 Serum or plasma urea nitrogen measurement (mass/volume) 33 mg/dL High - [facility] White blood cell (WBC) count Ordered By: Zack Choi on 01-22-2025 WBC (Bld) [#/Vol] 8.2 10*3/uL 4.4-11.0 [facility] White blood cell (WBC) count 8.2 K/mm3 4.4-11.0 [facility] HbA1c (Bld) [Mass fraction]O rdered By: Lizet Linares on 01-05-2025 Hemoglobin A1c percentage 10.2 % >5.7 [facility] Hemoglobin A1c percentageOrd ered By: Lizet Linares on 01-05-2025 HbA1c (Bld) [Mass fraction] 10.2 % >5.7 [facility] Creatinine (U) [Mass/Vol]Ord ered By: Lizet Linares on 12-07-2024 Urine creatinine measurement (mass/volume) 38.20 mg/dL NO RANGE EST. [facility] Random urine microalbumin me asurementOrdered By: Lizet Linares on 12-07-2024 Random urine microalbumin measurement 9.2 mg/L NO RANGE EST. [facility] Urine albumin/creatinine rat io for detection of microalbuminuriaOrdered By: Lizet Linares on 12-07-2024 Urine albumin/creatinine ratio for detection of microalbuminuria 24.0 mg/g CRE <30 [facility] Urine creatinine measurement (mass/volume)Ordered By: Lizet Linares on 12-07-2024 Creatinine (U) [Mass/Vol] 38.20 mg/dL NO RANGE EST. [facility] Cholesterol [Mass/Vol]Ordere d By: Lizet Linares on 11-30-2024 Serum or plasma cholesterol measurement (mass/volume) 91 mg/dL <200 [facility] High density lipoprotein (HD L) measurementOrdered By: Lizet Linares on 11-30-2024 Cholesterol in HDL [Mass/Vol] 29 mg/dL Low >40 [facility] Comment on above: The drugs N-Acetylcy steine and Metamizole may falsely depress this assay. Reference Range HDL <40 mg/dL Low HDL Cholesterol HDL >or= 60 mg/dL High HDL Cholesterol High density lipoprotein (HDL) measurement 29 mg/dL Low >40 [facility] Low density lipoprotein (LDL ) cholesterol measurementOrdered By: Lizet Linares on 11-30-2024 Cholesterol in LDL [Mass/Vol] 24 mg/dL 0-130 [facility] Low density lipoprotein (LDL) cholesterol measurement 24 mg/dL 0-130 [facility] Serum or plasma cholesterol measurement (mass/volume)Ordered By: Lizet Linares on 11-30-2024 Cholesterol [Mass/Vol] 91 mg/dL <200 [facility] Comment on above: <200 mg/dL Desirable 200-240 mg/dL Borderline >240 mg/dL High Risk Serum or plasma thyroid stim ulating hormone (TSH) measurement (units/volume)Ordered By: Lizet Linares on 11-30-2024 TSH Qn 2.550 uIU/mL 0.358-3.74 0 [facility] TSH QnOrdered By: Lizet Linares on 11-30-2024 Serum or plasma thyroid stimulating hormone (TSH) measurement (units/volume) 2.550 uIU/mL 0.358-3.74 0 [facility] Triglycerides measurementOrd ered By: Lizet Linares on 11-30-2024 Triglyceride [Mass/Vol] 191 mg/dL <199 [facility] Comment on above: The drugs N-Acetylcy steine and Metamizole may falsely depress this assay.Serum Triglycerides Reference Interval Normal <150 mg/dL Borderline high 150 - 199 mg/dL High 200 - 499 mg/dL Very High > or = 500 mg/dL Triglycerides measurement 191 mg/dL <199 [facility] Very low density lipoprotein (VLDL) cholesterol measurementOrdered By: Lizet Linares on 11-30-2024 Very low density lipoprotein (VLDL) cholesterol measurement 38 mg/dL 5-40 [facility] Very low density lipoprotein (VLDL) cholesterol measurement 38 mg/dL 5-40 [facility] Absolute neutrophil countOrd ered By: Lizet Linares on 11-24-2024 Absolute neutrophil count 4.1 X10^3/uL 2.0-7.7 [facility] Basophil percentageOrdered B y: Lizet Linares on 11-24-2024 Basophil percentage 0.6 % 0-1 [facility] Blood urea nitrogen (BUN)/cr eatinine ratioOrdered By: Lizet Linares on 11-24-2024 Blood urea nitrogen (BUN)/creatinine ratio 22.2 RATIO High 10-20 [facility] Calcium [Mass/Vol]Ordered By : Lizet Linares on 11-24-2024 Serum or plasma calcium measurement (mass/volume) 9.2 mg/dL 8.5-10.1 [facility] Carbon dioxide measurementOr dered By: Lizet Linares on 11-24-2024 Carbon dioxide measurement 27.0 mmol/L 21.0-32.0 [facility] Chloride measurementOrdered By: Lizet Linares on 11-24-2024 Chloride measurement 98 mmol/L 98-107 [facility] Creatinine [Mass/Vol]Ordered By: Lizet Linares on 11-24-2024 Serum or plasma creatinine measurement (mass/volume) 1.53 mg/dL High 0.55-1.02 [facility] Eosinophil percentageOrdered By: Lizet Linares on 11-24-2024 Eosinophil percentage 1.5 % 0-5 [facility] Erythrocyte distribution wid th (RBC) [Ratio]Ordered By: Lizet Linares on 11-24-2024 Erythrocyte distribution width ratio 13.9 % 11.6-14.6 [facility] Erythrocyte distribution wid th standard deviationOrdered By: Lizet Linares on 11-24-2024 Erythrocyte distribution width standard deviation 45.1 fl High 35.1-43.9 [facility] Estimated glomerular filtrat ion rate (GFR) AmericanOrdered By: Lizet Linares on 11-24-2024 Estimated glomerular filtration rate (GFR) 44 mL/min Low >60 [facility] Glomerular filtration rate ( GFR) estimationOrdered By: Lizet Linares on 11-24-2024 Glomerular filtration rate (GFR) estimation 37 mL/min Low >60 [facility] Glucose measurementOrdered B y: Lizet Linares on 11-24-2024 Glucose measurement 402 mg/dL High 74-106 [facility] Hematocrit Auto (Bld) [Volum e fraction]Ordered By: Lizet Linares on 11-24-2024 Automated blood hematocrit (percentage) 32.9 % Low 37-47 [facility] Hemoglobin measurementOrdere d By: Lizet Linares on 11-24-2024 Hemoglobin measurement 10.2 g/dL Low 12.0-15.0 [facility] Immature granulocytes/100 WB C Auto (Bld)Ordered By: Lizet Linares on 11-24-2024 Automated immature granulocyte percentage 0.600 % 0.0-0.9 [facility] Lymphocytes Auto (Unsp spec) [#/Vol]Ordered By: Lizet Linares on 11-24-2024 Absolute lymphocyte count 2.20 X10^3/uL 0.83-4. 51 [facility] Lymphocytes/100 WBC Auto (Un sp spec)Ordered By: Lizet Linares on 11-24-2024 Automated lymphocyte count as percentage of total leukocytes 32.2 % 19-41 [facility] MCV (RBC) [Entitic vol]Order ed By: Lizet Linares on 11-24-2024 MCV (mean corpuscular volume) determination 89.2 fL 81-99 [facility] Mean corpuscular hemoglobin (MCH) determinationOrdered By: Lizet Linares on 11-24-2024 Mean corpuscular hemoglobin (MCH) determination 27.6 pg 27.0-32.0 [facility] Mean corpuscular hemoglobin concentration (MCHC) determinationOrdered By: Lizet Linares on 11-24-2024 Mean corpuscular hemoglobin concentration (MCHC) determination 31.0 g/dL Low 32-36 [facility] Mean platelet volume determi nationOrdered By: Lizet Linares on 11-24-2024 Mean platelet volume determination 9.3 fl 6.2-12.0 [facility] Monocyte percentageOrdered B y: Lizet Linares on 11-24-2024 Monocyte percentage 5.1 % 0-10 [facility] Neutrophil percentageOrdered By: Lizet Linares on 11-24-2024 Neutrophil percentage 60.0 % 47-70 [facility] Nucleated red blood cell per centageOrdered By: Lizet Linares on 11-24-2024 Nucleated red blood cell percentage 0 % 0-5 [facility] Platelet countOrdered By: Junie Linares on 11-24-2024 Platelet count 311 K/mm3 150-450 [facility] Potassium measurementOrdered By: Lizet Linares on 11-24-2024 Potassium measurement 4.7 mmol/L 3.5-5.1 [facility] RBC Auto (Bld) [#/Vol]Ordere d By: Lizet Linares on 11-24-2024 Automated blood erythrocyte count 3.69 M/mm3 Low 4.2-5.4 [facility] Serum anion gap measurementO rdered By: Lizet Linares on 11-24-2024 Serum anion gap measurement 6 5-15 [facility] Sodium levelOrdered By: Holly Linares on 11-24-2024 Sodium level 131 mmol/L Low 136-145 [facility] Urea nitrogen [Mass/Vol]Orde red By: Lizet Linares on 11-24-2024 Serum or plasma urea nitrogen measurement (mass/volume) 34 mg/dL High 7-18 [facility] White blood cell (WBC) count Ordered By: Lizet Linares on 11-24-2024 White blood cell (WBC) count 6.8 K/mm3 4.4-11.0 [facility] Absolute neutrophil countOrd ered By: Lizet Linares on 11-17-2024 Absolute neutrophil count 3.2 X10^3/uL 2.0-7.7 [facility] Basophil percentageOrdered B y: Lizet Linares on 11-17-2024 Basophil percentage 0.7 % 0-1 [facility] Blood urea nitrogen (BUN)/cr eatinine ratioOrdered By: Lizet Linares on 11-17-2024 Blood urea nitrogen (BUN)/creatinine ratio 22.6 RATIO High 10-20 [facility] Calcium [Mass/Vol]Ordered By : Lizet Linares on 11-17-2024 Serum or plasma calcium measurement (mass/volume) 8.6 mg/dL 8.5-10.1 [facility] Carbon dioxide measurementOr dered By: Lizet Linares on 11-17-2024 Carbon dioxide measurement 26.0 mmol/L 21.0-32.0 [facility] Chloride measurementOrdered By: Lizet Linares on 11-17-2024 Chloride measurement 103 mmol/L 98-107 [facility] Creatinine [Mass/Vol]Ordered By: Lizet Linares on 11-17-2024 Serum or plasma creatinine measurement (mass/volume) 1.37 mg/dL High 0.55-1.02 [facility] Eosinophil percentageOrdered By: Lizet Linares on 11-17-2024 Eosinophil percentage 1.5 % 0-5 [facility] Erythrocyte distribution wid th (RBC) [Ratio]Ordered By: Lizet Linares on 11-17-2024 Erythrocyte distribution width ratio 13.8 % 11.6-14.6 [facility] Erythrocyte distribution wid th standard deviationOrdered By: Lizet Linares on 11-17-2024 Erythrocyte distribution width standard deviation 44.4 fl High 35.1-43.9 [facility] Estimated glomerular filtrat ion rate (GFR) AmericanOrdered By: Lizet Linares on 11-17-2024 Estimated glomerular filtration rate (GFR) 50 mL/min Low >60 [facility] Glomerular filtration rate ( GFR) estimationOrdered By: Lizet Linares on 11-17-2024 Glomerular filtration rate (GFR) estimation 42 mL/min Low >60 [facility] Glucose measurementOrdered B y: Lizet Linares on 11-17-2024 Glucose measurement 304 mg/dL High 74-106 [facility] Hematocrit Auto (Bld) [Volum e fraction]Ordered By: Lizet Linares on 11-17-2024 Automated blood hematocrit (percentage) 32.3 % Low 37-47 [facility] Hemoglobin measurementOrdere d By: Lizet Linares on 11-17-2024 Hemoglobin measurement 10.1 g/dL Low 12.0-15.0 [facility] Immature granulocytes/100 WB C Auto (Bld)Ordered By: Lizet Linares on 11-17-2024 Automated immature granulocyte percentage 0.300 % 0.0-0.9 [facility] Lymphocytes Auto (Unsp spec) [#/Vol]Ordered By: Lizet Linares on 11-17-2024 Absolute lymphocyte count 2.18 X10^3/uL 0.83-4. 51 [facility] Lymphocytes/100 WBC Auto (Un sp spec)Ordered By: Lizet Linares on 11-17-2024 Automated lymphocyte count as percentage of total leukocytes 36.9 % 19-41 [facility] MCV (RBC) [Entitic vol]Order ed By: Lizet Linares on 11-17-2024 MCV (mean corpuscular volume) determination 87.5 fL 81-99 [facility] Mean corpuscular hemoglobin (MCH) determinationOrdered By: Lizet Linares on 11-17-2024 Mean corpuscular hemoglobin (MCH) determination 27.4 pg 27.0-32.0 [facility] Mean corpuscular hemoglobin concentration (MCHC) determinationOrdered By: Lizet Linares on 11-17-2024 Mean corpuscular hemoglobin concentration (MCHC) determination 31.3 g/dL Low 32-36 [facility] Mean platelet volume determi nationOrdered By: Lizet Linares on 11-17-2024 Mean platelet volume determination 9.4 fl 6.2-12.0 [facility] Monocyte percentageOrdered B y: Lizet Linares on 11-17-2024 Monocyte percentage 5.8 % 0-10 [facility] Neutrophil percentageOrdered By: Lizet Linares on 11-17-2024 Neutrophil percentage 54.8 % 47-70 [facility] Nucleated red blood cell per centageOrdered By: Lizet Linares on 11-17-2024 Nucleated red blood cell percentage 0 % 0-5 [facility] Platelet countOrdered By: Junie Linares on 11-17-2024 Platelet count 309 K/mm3 150-450 [facility] Potassium measurementOrdered By: Lizet Linares on 11-17-2024 Potassium measurement 4.3 mmol/L 3.5-5.1 [facility] RBC Auto (Bld) [#/Vol]Ordere d By: Lizet Linares on 11-17-2024 Automated blood erythrocyte count 3.69 M/mm3 Low 4.2-5.4 [facility] Serum anion gap measurementO rdered By: Lizet Linares on 11-17-2024 Serum anion gap measurement 6 5-15 [facility] Sodium levelOrdered By: Holly Linares on 11-17-2024 Sodium level 135 mmol/L Low 136-145 [facility] Urea nitrogen [Mass/Vol]Orde red By: Lizet Linares on 11-17-2024 Serum or plasma urea nitrogen measurement (mass/volume) 31 mg/dL High 7-18 [facility] White blood cell (WBC) count Ordered By: Lizet Linares on 11-17-2024 White blood cell (WBC) count 5.9 K/mm3 4.4-11.0 [facility] Absolute neutrophil countOrd ered By: Lizet Linares on 11-10-2024 Absolute neutrophil count 4.5 X10^3/uL 2.0-7.7 [facility] Basophil percentageOrdered B y: Lizet Linares on 11-10-2024 Basophil percentage 0.7 % 0-1 [facility] Blood urea nitrogen (BUN)/cr eatinine ratioOrdered By: Lizet Linares on 11-10-2024 Blood urea nitrogen (BUN)/creatinine ratio 16.4 RATIO 10-20 [facility] Calcium [Mass/Vol]Ordered By : Lizet Linares on 11-10-2024 Serum or plasma calcium measurement (mass/volume) 9.1 mg/dL 8.5-10.1 [facility] [facility] Carbon dioxide measurementOr dered By: Lizet Linares on 11-10-2024 Carbon dioxide measurement 27.0 mmol/L 21.0-32.0 [facility] Chloride measurementOrdered By: Lizet Linares on 11-10-2024 Chloride measurement 100 mmol/L 98-107 [facility] Creatinine [Mass/Vol]Ordered By: Lizet Linares on 11-10-2024 Serum or plasma creatinine measurement (mass/volume) 1.40 mg/dL High 0.55-1.02 [facility] Eosinophil percentageOrdered By: Lizet Linares on 11-10-2024 Eosinophil percentage 1.1 % 0-5 [facility] Erythrocyte distribution wid th (RBC) [Ratio]Ordered By: Lizet Linares on 11-10-2024 Erythrocyte distribution width ratio 13.8 % 11.6-14.6 [facility] Erythrocyte distribution wid th standard deviationOrdered By: Lizet Linares on 11-10-2024 Erythrocyte distribution width standard deviation 45.1 fl High 35.1-43.9 [facility] Estimated glomerular filtrat ion rate (GFR) AmericanOrdered By: Lizet Linares on 11-10-2024 Estimated glomerular filtration rate (GFR) 49 mL/min Low >60 [facility] Glomerular filtration rate ( GFR) estimationOrdered By: Lizet Linares on 11-10-2024 Glomerular filtration rate (GFR) estimation 41 mL/min Low >60 [facility] Glucose measurementOrdered B y: Lizet Linares on 11-10-2024 Glucose measurement 342 mg/dL High 74-106 [facility] Hematocrit Auto (Bld) [Volum e fraction]Ordered By: Lizet Linares on 11-10-2024 Automated blood hematocrit (percentage) 32.9 % Low 37-47 [facility] Hemoglobin measurementOrdere d By: Lizet Linares on 11-10-2024 Hemoglobin measurement 10.4 g/dL Low 12.0-15.0 [facility] Immature granulocytes/100 WB C Auto (Bld)Ordered By: Lizet Linares on 11-10-2024 Automated immature granulocyte percentage 0.600 % 0.0-0.9 [facility] Lymphocytes Auto (Unsp spec) [#/Vol]Ordered By: Lizet Linares on 11-10-2024 Absolute lymphocyte count 2.01 X10^3/uL 0.83-4. 51 [facility] Lymphocytes/100 WBC Auto (Un sp spec)Ordered By: Lizet Linares on 11-10-2024 Automated lymphocyte count as percentage of total leukocytes 28.2 % 19-41 [facility] MCV (RBC) [Entitic vol]Order ed By: Lizet Linares on 11-10-2024 MCV (mean corpuscular volume) determination 88.9 fL 81-99 [facility] Mean corpuscular hemoglobin (MCH) determinationOrdered By: Lizet Linares on 11-10-2024 Mean corpuscular hemoglobin (MCH) determination 28.1 pg 27.0-32.0 [facility] Mean corpuscular hemoglobin concentration (MCHC) determinationOrdered By: Lizet Linares on 11-10-2024 Mean corpuscular hemoglobin concentration (MCHC) determination 31.6 g/dL Low 32-36 [facility] Mean platelet volume determi nationOrdered By: Lizet Linares on 11-10-2024 Mean platelet volume determination 10.0 fl 6.2-12.0 [facility] Monocyte percentageOrdered B y: Lizet Linares on 11-10-2024 Monocyte percentage 6.0 % 0-10 [facility] Neutrophil percentageOrdered By: Lizet Linares on 11-10-2024 Neutrophil percentage 63.4 % 47-70 [facility] Nucleated red blood cell per centageOrdered By: Lizet Linares on 11-10-2024 Nucleated red blood cell percentage 0 % 0-5 [facility] Platelet countOrdered By: Junie Linares on 11-10-2024 Platelet count 334 K/mm3 150-450 [facility] Potassium measurementOrdered By: Lizet Linares on 11-10-2024 Potassium measurement 4.4 mmol/L 3.5-5.1 [facility] RBC Auto (Bld) [#/Vol]Ordere d By: Lizet Linares on 11-10-2024 Automated blood erythrocyte count 3.70 M/mm3 Low 4.2-5.4 [facility] Serum anion gap measurementO rdered By: Lizet Linares on 11-10-2024 Serum anion gap measurement 7 5-15 [facility] Sodium levelOrdered By: Holly Linares on 11-10-2024 Sodium level 134 mmol/L Low 136-145 [facility] Urea nitrogen [Mass/Vol]Orde red By: Lizet Linares on 11-10-2024 Serum or plasma urea nitrogen measurement (mass/volume) 23 mg/dL High 7-18 [facility] White blood cell (WBC) count Ordered By: Lizet Linares on 11-10-2024 White blood cell (WBC) count 7.1 K/mm3 4.4-11.0 [facility] Absolute neutrophil countOrd ered By: Lizet Linares on 11-03-2024 Absolute neutrophil count 3.0 X10^3/uL 2.0-7.7 [facility] Basophil percentageOrdered B y: Lizet Linares on 11-03-2024 Basophil percentage 0.5 % 0-1 [facility] Blood urea nitrogen (BUN)/cr eatinine ratioOrdered By: Lizet Linares on 11-03-2024 Blood urea nitrogen (BUN)/creatinine ratio 21.3 RATIO High 10-20 [facility] Calcium [Mass/Vol]Ordered By : Lizet Linares on 11-03-2024 Serum or plasma calcium measurement (mass/volume) 9.1 mg/dL 8.5-10.1 [facility] Carbon dioxide measurementOr dered By: Lizet Linares on 11-03-2024 Carbon dioxide measurement 26.0 mmol/L 21.0-32.0 [facility] Chloride measurementOrdered By: Lizet Linares on 11-03-2024 Chloride measurement 100 mmol/L 98-107 [facility] Creatinine [Mass/Vol]Ordered By: Lizet Linares on 11-03-2024 Serum or plasma creatinine measurement (mass/volume) 1.27 mg/dL High 0.55-1.02 [facility] Eosinophil percentageOrdered By: Lizet Linares on 11-03-2024 Eosinophil percentage 2.4 % 0-5 [facility] Erythrocyte distribution wid th (RBC) [Ratio]Ordered By: Lizet Linares on 11-03-2024 Erythrocyte distribution width ratio 13.9 % 11.6-14.6 [facility] Erythrocyte distribution wid th standard deviationOrdered By: Lizet Linares on 11-03-2024 Erythrocyte distribution width standard deviation 45.0 fl High 35.1-43.9 [facility] Estimated glomerular filtrat ion rate (GFR) AmericanOrdered By: Lizet Linares on 11-03-2024 Estimated glomerular filtration rate (GFR) 55 mL/min Low >60 [facility] Glomerular filtration rate ( GFR) estimationOrdered By: Lizet Linares on 11-03-2024 Glomerular filtration rate (GFR) estimation 45 mL/min Low >60 [facility] Glucose measurementOrdered B y: Lizet Linares on 11-03-2024 Glucose measurement 352 mg/dL High 74-106 [facility] Hematocrit Auto (Bld) [Volum e fraction]Ordered By: Lizet Linares on 11-03-2024 Automated blood hematocrit (percentage) 33.0 % Low 37-47 [facility] Hemoglobin measurementOrdere d By: Lizet Linares on 11-03-2024 Hemoglobin measurement 10.2 g/dL Low 12.0-15.0 [facility] Immature granulocytes/100 WB C Auto (Bld)Ordered By: Lizet Linares on 11-03-2024 Automated immature granulocyte percentage 0.500 % 0.0-0.9 [facility] Lymphocytes Auto (Unsp spec) [#/Vol]Ordered By: Lizet Linares on 11-03-2024 Absolute lymphocyte count 1.95 X10^3/uL 0.83-4. 51 [facility] Lymphocytes/100 WBC Auto (Un sp spec)Ordered By: Lizet Linares on 11-03-2024 Automated lymphocyte count as percentage of total leukocytes 35.6 % 19-41 [facility] MCV (RBC) [Entitic vol]Order ed By: Lizet Linares on 11-03-2024 MCV (mean corpuscular volume) determination 89.2 fL 81-99 [facility] Mean corpuscular hemoglobin (MCH) determinationOrdered By: Lizet Linares on 11-03-2024 Mean corpuscular hemoglobin (MCH) determination 27.6 pg 27.0-32.0 [facility] Mean corpuscular hemoglobin concentration (MCHC) determinationOrdered By: Lizet Linares on 11-03-2024 Mean corpuscular hemoglobin concentration (MCHC) determination 30.9 g/dL Low 32-36 [facility] Mean platelet volume determi nationOrdered By: Lizet Linares on 11-03-2024 Mean platelet volume determination 9.6 fl 6.2-12.0 [facility] Monocyte percentageOrdered B y: Lizet Linares on 11-03-2024 Monocyte percentage 6.4 % 0-10 [facility] Neutrophil percentageOrdered By: Lizet Linares on 11-03-2024 Neutrophil percentage 54.6 % 47-70 [facility] Nucleated red blood cell per centageOrdered By: Lizet Linares on 11-03-2024 Nucleated red blood cell percentage 0 % 0-5 [facility] Platelet countOrdered By: Junie Linares on 11-03-2024 Platelet count 331 K/mm3 150-450 [facility] Potassium measurementOrdered By: Lizet Linares on 11-03-2024 Potassium measurement 4.1 mmol/L 3.5-5.1 [facility] RBC Auto (Bld) [#/Vol]Ordere d By: Lizet Linares on 11-03-2024 Automated blood erythrocyte count 3.70 M/mm3 Low 4.2-5.4 [facility] Serum anion gap measurementO rdered By: Lizet Linares on 11-03-2024 Serum anion gap measurement 6 5-15 [facility] Sodium levelOrdered By: Holly Linares on 11-03-2024 Sodium level 133 mmol/L Low 136-145 [facility] Urea nitrogen [Mass/Vol]Orde red By: Lizet Linares on 11-03-2024 Serum or plasma urea nitrogen measurement (mass/volume) 27 mg/dL High 7-18 [facility] White blood cell (WBC) count Ordered By: Lizet Linares on 11-03-2024 White blood cell (WBC) count 5.5 K/mm3 4.4-11.0 [facility] TSH QnOrdered By: Lizet Linares on 11-01-2024 Serum or plasma thyroid stimulating hormone (TSH) measurement (units/volume) 2.030 uIU/mL 0.358-3.74 0 [facility] Absolute neutrophil countOrd ered By: Lizet Linares on 10-27-2024 Absolute neutrophil count 3.1 X10^3/uL 2.0-7.7 [facility] Basophil percentageOrdered B y: Lizet Linares on 10-27-2024 Basophil percentage 0.4 % 0-1 [facility] Blood urea nitrogen (BUN)/cr eatinine ratioOrdered By: Lizet Linares on 10-27-2024 Blood urea nitrogen (BUN)/creatinine ratio 17.7 RATIO 10-20 [facility] Calcium [Mass/Vol]Ordered By : Lizet Linares on 10-27-2024 Serum or plasma calcium measurement (mass/volume) 8.3 mg/dL Low 8.5-10.1 [facility] Carbon dioxide measurementOr dered By: Lizet Linares on 10-27-2024 Carbon dioxide measurement 25.0 mmol/L 21.0-32.0 [facility] Chloride measurementOrdered By: Lizet Linares on 10-27-2024 Chloride measurement 100 mmol/L 98-107 [facility] Creatinine [Mass/Vol]Ordered By: Lizet Linares on 10-27-2024 Serum or plasma creatinine measurement (mass/volume) 1.41 mg/dL High 0.55-1.02 [facility] Eosinophil percentageOrdered By: Lizet Linares on 10-27-2024 Eosinophil percentage 2.4 % 0-5 [facility] Erythrocyte distribution wid th (RBC) [Ratio]Ordered By: Lizet Linares on 10-27-2024 Erythrocyte distribution width ratio 13.9 % 11.6-14.6 [facility] Erythrocyte distribution wid th standard deviationOrdered By: Lizet Linares on 10-27-2024 Erythrocyte distribution width standard deviation 44.4 fl High 35.1-43.9 [facility] Estimated glomerular filtrat ion rate (GFR) AmericanOrdered By: Lizet Linares on 10-27-2024 Estimated glomerular filtration rate (GFR) 49 mL/min Low >60 [facility] Glomerular filtration rate ( GFR) estimationOrdered By: Lizet Linares on 10-27-2024 Glomerular filtration rate (GFR) estimation 40 mL/min Low >60 [facility] Glucose measurementOrdered B y: Lizet Linares on 10-27-2024 Glucose measurement 425 mg/dL High 74-106 [facility] Hematocrit Auto (Bld) [Volum e fraction]Ordered By: Lizet Linares on 10-27-2024 Automated blood hematocrit (percentage) 28.7 % Low 37-47 [facility] Hemoglobin measurementOrdere d By: Lizet Linares on 10-27-2024 Hemoglobin measurement 9.2 g/dL Low 12.0-15.0 [facility] Immature granulocytes/100 WB C Auto (Bld)Ordered By: Lizet Linares on 10-27-2024 Automated immature granulocyte percentage 0.400 % 0.0-0.9 [facility] Lymphocytes Auto (Unsp spec) [#/Vol]Ordered By: Lizet Linares on 10-27-2024 Absolute lymphocyte count 1.77 X10^3/uL 0.83-4. 51 [facility] Lymphocytes/100 WBC Auto (Un sp spec)Ordered By: Lizet Linares on 10-27-2024 Automated lymphocyte count as percentage of total leukocytes 32.8 % 19-41 [facility] MCV (RBC) [Entitic vol]Order ed By: Lizet Linares on 10-27-2024 MCV (mean corpuscular volume) determination 87.8 fL 81-99 [facility] Mean corpuscular hemoglobin (MCH) determinationOrdered By: Lizet Linares on 10-27-2024 Mean corpuscular hemoglobin (MCH) determination 28.1 pg 27.0-32.0 [facility] Mean corpuscular hemoglobin concentration (MCHC) determinationOrdered By: Lizet Linares on 10-27-2024 Mean corpuscular hemoglobin concentration (MCHC) determination 32.1 g/dL 32-36 [facility] Mean platelet volume determi nationOrdered By: Lizet Linares on 10-27-2024 Mean platelet volume determination 10.1 fl 6.2-12.0 [facility] Monocyte percentageOrdered B y: Lizet Linares on 10-27-2024 Monocyte percentage 5.9 % 0-10 [facility] Neutrophil percentageOrdered By: Lizet Linares on 10-27-2024 Neutrophil percentage 58.1 % 47-70 [facility] Nucleated red blood cell per centageOrdered By: Lizet Linares on 10-27-2024 Nucleated red blood cell percentage 0 % 0-5 [facility] Platelet countOrdered By: Junie Linares on 10-27-2024 Platelet count 292 K/mm3 150-450 [facility] Potassium measurementOrdered By: Lizet Linares on 10-27-2024 Potassium measurement 4.0 mmol/L 3.5-5.1 [facility] RBC Auto (Bld) [#/Vol]Ordere d By: Lizet Linares on 10-27-2024 Automated blood erythrocyte count 3.27 M/mm3 Low 4.2-5.4 [facility] Serum anion gap measurementO rdered By: Lizet Linares on 10-27-2024 Serum anion gap measurement 8 5-15 [facility] Sodium levelOrdered By: Holly Linares on 10-27-2024 Sodium level 132 mmol/L Low 136-145 [facility] Urea nitrogen [Mass/Vol]Orde red By: Lizet Linares on 10-27-2024 Serum or plasma urea nitrogen measurement (mass/volume) 25 mg/dL High 7-18 [facility] White blood cell (WBC) count Ordered By: Lizet Linares on 10-27-2024 White blood cell (WBC) count 5.4 K/mm3 4.4-11.0 [facility] ALP [Catalytic activity/Vol] Ordered By: Salvador Campbell on 10-24-2024 Serum or plasma alkaline phosphatase measurement 49 U/L 45-117 [facility] ALT [Catalytic activity/Vol] Ordered By: Salvador Campbell on 10-24-2024 Serum or plasma alanine aminotransferase (ALT) measurement 25 U/L 13-56 [facility] Absolute neutrophil countOrd ered By: Salvador Campbell on 10-24-2024 Absolute neutrophil count 4.0 X10^3/uL 2.0-7.7 [facility] Albumin [Mass/Vol]Ordered By : Salvador Campbell on 10-24-2024 Serum or plasma albumin measurement (mass/volume) 3.0 g/dL Low 3.2-5.0 [facility] Albumin to globulin ratioOrd ered By: Salvador Campbell on 10-24-2024 Albumin to globulin ratio 0.8 RATIO Low 0.9-2.4 [facility] Basophil percentageOrdered B y: Salvador Campbell on 10-24-2024 Basophil percentage 0.7 % 0-1 [facility] Bilirubin, totalOrdered By: Salvador Campbell on 10-24-2024 Bilirubin, total 0.30 mg/dL 0.20-1.00 [facility] Blood urea nitrogen (BUN)/cr eatinine ratioOrdered By: Salvador Campbell on 10-24-2024 Blood urea nitrogen (BUN)/creatinine ratio 21.1 RATIO High 10-20 [facility] Calcium [Mass/Vol]Ordered By : Salvador Campbell on 10-24-2024 Serum or plasma calcium measurement (mass/volume) 8.8 mg/dL 8.5-10.1 [facility] Carbon dioxide measurementOr dered By: Salvador Campbell on 10-24-2024 Carbon dioxide measurement 26.0 mmol/L 21.0-32.0 [facility] Chloride measurementOrdered By: Salvador Campbell on 10-24-2024 Chloride measurement 100 mmol/L 98-107 [facility] Clarity (U)Ordered By: Natan Campbell on 10-24-2024 Urine clarity Clear Clear [facility] Color (U)Ordered By: Salvador Campbell on 10-24-2024 Urine color determination Yellow Yellow [facility] Creatinine [Mass/Vol]Ordered By: Salvador Campbell on 10-24-2024 Serum or plasma creatinine measurement (mass/volume) 1.28 mg/dL High 0.55-1.02 [facility] Eosinophil percentageOrdered By: Salvador Campbell on 10-24-2024 Eosinophil percentage 2.2 % 0-5 [facility] Epithelial cells.squamous LM Ql (Urine sed)Ordered By: Salvador Campbell on 10-24-2024 Squamous epithelial cells detection in urine sediment by light microscopy 0-5 SEEN /hpf 5-10 [facility] Erythrocyte distribution wid th (RBC) [Ratio]Ordered By: Salvador Campbell on 10-24-2024 Erythrocyte distribution width ratio 13.6 % 11.6-14.6 [facility] Erythrocyte distribution wid th standard deviationOrdered By: Salvador Campbell on 10-24-2024 Erythrocyte distribution width standard deviation 44.1 fl High 35.1-43.9 [facility] Estimated glomerular filtrat ion rate (GFR) AmericanOrdered By: Salvador Campbell on 10-24-2024 Estimated glomerular filtration rate (GFR) 55 mL/min Low >60 [facility] Estimation of creatinine jacqui aranceOrdered By: Salvador Campbell on 10-24-2024 Estimation of creatinine clearance 46.41 ml/min [facility] Glomerular filtration rate ( GFR) estimationOrdered By: Salvdaor Campbell on 10-24-2024 Glomerular filtration rate (GFR) estimation 45 mL/min Low >60 [facility] Glucose Ql (U)Ordered By: Malachi Campbell on 10-24-2024 Urine glucose detection 250 mg/dl High Normal [facility] Glucose measurementOrdered B y: Salvador Campbell on 10-24-2024 Glucose measurement 328 mg/dL High 74-106 [facility] Hematocrit Auto (Bld) [Volum e fraction]Ordered By: Salvador Campbell on 10-24-2024 Automated blood hematocrit (percentage) 33.6 % Low 37-47 [facility] Hemoglobin measurementOrdere d By: Salvador Campbell on 10-24-2024 Hemoglobin measurement 10.4 g/dL Low 12.0-15.0 [facility] Immature granulocytes/100 WB C Auto (Bld)Ordered By: Salvador Campbell on 10-24-2024 Automated immature granulocyte percentage 0.900 % 0.0-0.9 [facility] Lactic acid measurementOrder ed By: Salvador Campbell on 10-24-2024 Lactic acid measurement 1.7 mmol/L 0.4-2.[address] [facility] Lymphocytes Auto (Unsp spec) [#/Vol]Ordered By: Salvador Campbell on 10-24-2024 Absolute lymphocyte count 2.05 X10^3/uL 0.83-4. 51 [facility] Lymphocytes/100 WBC Auto (Un sp spec)Ordered By: Salvador Campbell on 10-24-2024 Automated lymphocyte count as percentage of total leukocytes 30.7 % 19-41 [facility] MCV (RBC) [Entitic vol]Order ed By: Salvador Campbell on 10-24-2024 MCV (mean corpuscular volume) determination 88.9 fL 81-99 [facility] Mean corpuscular hemoglobin (MCH) determinationOrdered By: Salvador Campbell on 10-24-2024 Mean corpuscular hemoglobin (MCH) determination 27.5 pg 27.0-32.0 [facility] Mean corpuscular hemoglobin concentration (MCHC) determinationOrdered By: Salvador Campbell on 10-24-2024 Mean corpuscular hemoglobin concentration (MCHC) determination 31.0 g/dL Low 32-36 [facility] Mean platelet volume determi nationOrdered By: Salvador Campbell on 10-24-2024 Mean platelet volume determination 9.7 fl 6.2-12.0 [facility] Monocyte percentageOrdered B y: Salvador Campbell on 10-24-2024 Monocyte percentage 5.7 % 0-10 [facility] Neutrophil percentageOrdered By: Salvador Campbell on 10-24-2024 Neutrophil percentage 59.8 % 47-70 [facility] No Panel InformationOrdered By: Salvador Campbell on 10-24-2024 32 U/L 15-37 [facility] Nucleated red blood cell per centageOrdered By: Salvador Campbell on 10-24-2024 Nucleated red blood cell percentage 0 % 0-5 [facility] Platelet countOrdered By: Malachi Campbell on 10-24-2024 Platelet count 352 K/mm3 150-450 [facility] Potassium measurementOrdered By: Salvador Campbell on 10-24-2024 Potassium measurement 4.1 mmol/L 3.5-5.1 [facility] Protein Test strip Ql (U)Ord ered By: Salvador Campbell on 10-24-2024 Urine protein assay by test strip, semi-quantitative 15 mg/dl High Negative [facility] RBC Auto (Bld) [#/Vol]Ordere d By: Salvador Campbell on 10-24-2024 Automated blood erythrocyte count 3.78 M/mm3 Low 4.2-5.4 [facility] Serum anion gap measurementO rdered By: Salvador Campbell on 10-24-2024 Serum anion gap measurement 8 5-15 [facility] Serum globulin measurementOr dered By: Salvador Campbell on 10-24-2024 Serum globulin measurement 3.8 g/dL 2.2-4.2 [facility] Sodium levelOrdered By: Charles Campbell on 10-24-2024 Sodium level 135 mmol/L Low 136-145 [facility] Specific gravity (U) [Rel de nsity]Ordered By: Salvador Campbell on 10-24-2024 Urine specific gravity measurement 1.015 1.002-1.03 0 [facility] Total proteinOrdered By: Roldan Campbell on 10-24-2024 Total protein 6.8 g/dL 6.4-8.2 [facility] Urea nitrogen [Mass/Vol]Orde red By: Salvador Campbell on 10-24-2024 Serum or plasma urea nitrogen measurement (mass/volume) 27 mg/dL High 7-18 [facility] Urine total bilirubin detect ion by test stripOrdered By: Salvador Campbell on 10-24-2024 Urine total bilirubin detection by test strip Negative Negative [facility] Urobilinogen Ql (U)Ordered B y: Salvador Campbell on 10-24-2024 Urine urobilinogen measurement Normal mg/dl Normal [facility] White blood cell (WBC) count Ordered By: Salvador Campbell on 10-24-2024 White blood cell (WBC) count 6.7 K/mm3 4.4-11.0 [facility] White blood cell countOrdere d By: Salvador Campbell on 10-24-2024 White blood cell count 0 SEEN /hpf [facility] pH (U)Ordered By: Padmini on 10-24-2024 Urine pH 6.0 5.0 - 8.0 [facility] Absolute neutrophil countOrd ered By: Lizet Linares on 10-20-2024 Absolute neutrophil count 3.2 X10^3/uL 2.0-7.7 [facility] Basophil percentageOrdered B y: Lizet Linares on 10-20-2024 Basophil percentage 0.7 % 0-1 [facility] Blood urea nitrogen (BUN)/cr eatinine ratioOrdered By: Lizet Linares on 10-20-2024 Blood urea nitrogen (BUN)/creatinine ratio 22.0 RATIO High 10-20 [facility] Calcium [Mass/Vol]Ordered By : Lizet Linares on 10-20-2024 Serum or plasma calcium measurement (mass/volume) 8.4 mg/dL Low 8.5-10.1 [facility] Carbon dioxide measurementOr dered By: Lizet Linares on 10-20-2024 Carbon dioxide measurement 27.0 mmol/L 21.0-32.0 [facility] Chloride measurementOrdered By: Lizet Linares on 10-20-2024 Chloride measurement 102 mmol/L 98-107 [facility] Creatinine [Mass/Vol]Ordered By: Lizet Linares on 10-20-2024 Serum or plasma creatinine measurement (mass/volume) 1.27 mg/dL High 0.55-1.02 [facility] Eosinophil percentageOrdered By: Lizet Linares on 10-20-2024 Eosinophil percentage 3.1 % 0-5 [facility] Erythrocyte distribution wid th (RBC) [Ratio]Ordered By: Lizet Linares on 10-20-2024 Erythrocyte distribution width ratio 13.6 % 11.6-14.6 [facility] Erythrocyte distribution wid th standard deviationOrdered By: Lizet Linares on 10-20-2024 Erythrocyte distribution width standard deviation 44.0 fl High 35.1-43.9 [facility] Estimated glomerular filtrat ion rate (GFR) AmericanOrdered By: Lizet Linares on 10-20-2024 Estimated glomerular filtration rate (GFR) 55 mL/min Low >60 [facility] Glomerular filtration rate ( GFR) estimationOrdered By: Lizet Linares on 10-20-2024 Glomerular filtration rate (GFR) estimation 45 mL/min Low >60 [facility] Glucose measurementOrdered B y: Lizet Linares on 10-20-2024 Glucose measurement 277 mg/dL High 74-106 [facility] Hematocrit Auto (Bld) [Volum e fraction]Ordered By: Lizet Linares on 10-20-2024 Automated blood hematocrit (percentage) 30.6 % Low 37-47 [facility] Hemoglobin measurementOrdere d By: Lizet Linares on 10-20-2024 Hemoglobin measurement 9.6 g/dL Low 12.0-15.0 [facility] Immature granulocytes/100 WB C Auto (Bld)Ordered By: Lizet Linares on 10-20-2024 Automated immature granulocyte percentage 0.300 % 0.0-0.9 [facility] Lymphocytes Auto (Unsp spec) [#/Vol]Ordered By: Lizet Linares on 10-20-2024 Absolute lymphocyte count 2.38 X10^3/uL 0.83-4. 51 [facility] Lymphocytes/100 WBC Auto (Un sp spec)Ordered By: Lizet Linares on 10-20-2024 Automated lymphocyte count as percentage of total leukocytes 38.9 % 19-41 [facility] MCV (RBC) [Entitic vol]Order ed By: Lizet Linares on 10-20-2024 MCV (mean corpuscular volume) determination 88.7 fL 81-99 [facility] Mean corpuscular hemoglobin (MCH) determinationOrdered By: Lizet Linares on 10-20-2024 Mean corpuscular hemoglobin (MCH) determination 27.8 pg 27.0-32.0 [facility] Mean corpuscular hemoglobin concentration (MCHC) determinationOrdered By: Lizet Linares on 10-20-2024 Mean corpuscular hemoglobin concentration (MCHC) determination 31.4 g/dL Low 32-36 [facility] Mean platelet volume determi nationOrdered By: Lizet Linares on 10-20-2024 Mean platelet volume determination 9.8 fl 6.2-12.0 [facility] Monocyte percentageOrdered B y: Lizet Linares on 10-20-2024 Monocyte percentage 5.2 % 0-10 [facility] Neutrophil percentageOrdered By: Lizet Linares on 10-20-2024 Neutrophil percentage 51.8 % 47-70 [facility] Nucleated red blood cell per centageOrdered By: Lizet Linares on 10-20-2024 Nucleated red blood cell percentage 0 % 0-5 [facility] Platelet countOrdered By: Junie christastacey Linares on 10-20-2024 Platelet count 325 K/mm3 150-450 [facility] Potassium measurementOrdered By: Lizet Linares on 10-20-2024 Potassium measurement 3.9 mmol/L 3.5-5.1 [facility] RBC Auto (Bld) [#/Vol]Ordere d By: Lizet Linares on 10-20-2024 Automated blood erythrocyte count 3.45 M/mm3 Low 4.2-5.4 [facility] Serum anion gap measurementO rdered By: Lizet Linares on 10-20-2024 Serum anion gap measurement 6 5-15 [facility] Sodium levelOrdered By: Holly lrtia Milagros on 10-20-2024 Sodium level 135 mmol/L Low 136-145 [facility] Urea nitrogen [Mass/Vol]Orde red By: Lizet Linares on 10-20-2024 Serum or plasma urea nitrogen measurement (mass/volume) 28 mg/dL High 7-18 [facility] White blood cell (WBC) count Ordered By: Lizet Linares on 10-20-2024 White blood cell (WBC) count 6.1 K/mm3 4.4-11.0 [facility] Absolute neutrophil countOrd ered By: Lizet Linares on 10-13-2024 Absolute neutrophil count 3.3 X10^3/uL 2.0-7.7 [facility] Basophil percentageOrdered B y: Lizet Linares on 10-13-2024 Basophil percentage 0.8 % 0-1 [facility] Blood urea nitrogen (BUN)/cr eatinine ratioOrdered By: Lizet Linares on 10-13-2024 Blood urea nitrogen (BUN)/creatinine ratio 13.7 RATIO 10-20 [facility] Calcium [Mass/Vol]Ordered By : Lizet Linares on 10-13-2024 Serum or plasma calcium measurement (mass/volume) 9.0 mg/dL 8.5-10.1 [facility] Carbon dioxide measurementOr dered By: Lizet Linares on 10-13-2024 Carbon dioxide measurement 28.0 mmol/L 21.0-32.0 [facility] Chloride measurementOrdered By: Lizet Linares on 10-13-2024 Chloride measurement 103 mmol/L 98-107 [facility] Creatinine [Mass/Vol]Ordered By: Lizet Linares on 10-13-2024 Serum or plasma creatinine measurement (mass/volume) 1.31 mg/dL High 0.55-1.02 [facility] Eosinophil percentageOrdered By: Lizet Linares on 10-13-2024 Eosinophil percentage 2.5 % 0-5 [facility] Erythrocyte distribution wid th (RBC) [Ratio]Ordered By: Lizet Linares on 10-13-2024 Erythrocyte distribution width ratio 13.8 % 11.6-14.6 [facility] Erythrocyte distribution wid th standard deviationOrdered By: Lizet Linares 10-13-2024 Erythrocyte distribution width standard deviation 44.6 fl High 35.1-43.9 [facility] Estimated glomerular filtrat ion rate (GFR) AmericanOrdered By: Lizet Linares on 10-13-2024 Estimated glomerular filtration rate (GFR) 53 mL/min Low >60 [facility] Glomerular filtration rate ( GFR) estimationOrdered By: Lizet Linares on 10-13-2024 Glomerular filtration rate (GFR) estimation 44 mL/min Low >60 [facility] Glucose measurementOrdered B y: Lizet Linares on 10-13-2024 Glucose measurement 234 mg/dL High 74-106 [facility] Hematocrit Auto (Bld) [Volum e fraction]Ordered By: Lizet Linares on 10-13-2024 Automated blood hematocrit (percentage) 34.2 % Low 37-47 [facility] Hemoglobin measurementOrdere d By: Lizet Linares on 10-13-2024 Hemoglobin measurement 10.9 g/dL Low 12.0-15.0 [facility] Immature granulocytes/100 WB C Auto (Bld)Ordered By: Lizet Linares on 10-13-2024 Automated immature granulocyte percentage 0.500 % 0.0-0.9 [facility] Lymphocytes Auto (Unsp spec) [#/Vol]Ordered By: Lizet Linares on 10-13-2024 Absolute lymphocyte count 2.10 X10^3/uL 0.83-4. 51 [facility] Lymphocytes/100 WBC Auto (Un sp spec)Ordered By: Lizet Linares on 10-13-2024 Automated lymphocyte count as percentage of total leukocytes 35.3 % 19-41 [facility] MCV (RBC) [Entitic vol]Order ed By: Lizet Linares on 10-13-2024 MCV (mean corpuscular volume) determination 88.6 fL 81-99 [facility] Mean corpuscular hemoglobin (MCH) determinationOrdered By: Lizet Linares on 10-13-2024 Mean corpuscular hemoglobin (MCH) determination 28.2 pg 27.0-32.0 [facility] Mean corpuscular hemoglobin concentration (MCHC) determinationOrdered By: Lizet Linares on 10-13-2024 Mean corpuscular hemoglobin concentration (MCHC) determination 31.9 g/dL Low 32-36 [facility] Mean platelet volume determi nationOrdered By: Lizet Linares on 10-13-2024 Mean platelet volume determination 9.7 fl 6.2-12.0 [facility] Monocyte percentageOrdered B y: Lizet Linares on 10-13-2024 Monocyte percentage 6.2 % 0-10 [facility] Neutrophil percentageOrdered By: Lizet Linares on 10-13-2024 Neutrophil percentage 54.7 % 47-70 [facility] Nucleated red blood cell per centageOrdered By: Lizet Linares on 10-13-2024 Nucleated red blood cell percentage 0 % 0-5 [facility] Platelet countOrdered By: Junie Linares on 10-13-2024 Platelet count 361 K/mm3 150-450 [facility] Potassium measurementOrdered By: Lizet Linares on 10-13-2024 Potassium measurement 3.9 mmol/L 3.5-5.1 [facility] RBC Auto (Bld) [#/Vol]Ordere d By: Lizet Linares on 10-13-2024 Automated blood erythrocyte count 3.86 M/mm3 Low 4.2-5.4 [facility] Serum anion gap measurementO rdered By: Lizet Linares on 10-13-2024 Serum anion gap measurement 5 5-15 [facility] Sodium levelOrdered By: Holly Linares on 10-13-2024 Sodium level 136 mmol/L 136-145 [facility] Urea nitrogen [Mass/Vol]Orde red By: Lizet Linares on 10-13-2024 Serum or plasma urea nitrogen measurement (mass/volume) 18 mg/dL 7-18 [facility] White blood cell (WBC) count Ordered By: Lizet Linares on 10-13-2024 White blood cell (WBC) count 6.0 K/mm3 4.4-11.0 [facility] Absolute neutrophil countOrd ered By: Lizet Linares on 10-06-2024 Absolute neutrophil count 2.8 X10^3/uL 2.0-7.7 [facility] Basophil percentageOrdered B y: Lizet Linares on 10-06-2024 Basophil percentage 0.5 % 0-1 [facility] Blood urea nitrogen (BUN)/cr eatinine ratioOrdered By: Lizet Linares on 10-06-2024 Blood urea nitrogen (BUN)/creatinine ratio 15.5 RATIO 08-13 [facility] Calcium [Mass/Vol]Ordered By : Lizet Linares on 10-06-2024 Serum or plasma calcium measurement (mass/volume) 8.6 mg/dL 8.5-10.1 [facility] Carbon dioxide measurementOr dered By: Lizet Linares on 10-06-2024 Carbon dioxide measurement 26.0 mmol/L 21.0-32.0 [facility] Chloride measurementOrdered By: Lizet Linares on 10-06-2024 Chloride measurement 106 mmol/L 98-107 [facility] Creatinine [Mass/Vol]Ordered By: Lizet Linares on 10-06-2024 Serum or plasma creatinine measurement (mass/volume) 1.16 mg/dL High 0.55-1.02 [facility] Eosinophil percentageOrdered By: Lizet Linares on 10-06-2024 Eosinophil percentage 3.4 % 0-5 [facility] Erythrocyte distribution wid th (RBC) [Ratio]Ordered By: Lizet Linares on 10-06-2024 Erythrocyte distribution width ratio 14.0 % 11.6-14.6 [facility] Erythrocyte distribution wid th standard deviationOrdered By: Lizet Linares 10-06-2024 Erythrocyte distribution width standard deviation 45.4 fl High 35.1-43.9 [facility] Estimated glomerular filtrat ion rate (GFR) AmericanOrdered By: Lizet Linares on 10-06-2024 Estimated glomerular filtration rate (GFR) 61 mL/min >60 [facility] Glomerular filtration rate ( GFR) estimationOrdered By: Lizet Linares on 10-06-2024 Glomerular filtration rate (GFR) estimation 50 mL/min Low >60 [facility] Glucose measurementOrdered B y: Lizet Linares on 10-06-2024 Glucose measurement 204 mg/dL High 74-106 [facility] Hematocrit Auto (Bld) [Volum e fraction]Ordered By: Lizet Linares on 10-06-2024 Automated blood hematocrit (percentage) 30.7 % Low 37-47 [facility] Hemoglobin measurementOrdere d By: Lizet Linares on 10-06-2024 Hemoglobin measurement 9.8 g/dL Low 12.0-15.0 [facility] Immature granulocytes/100 WB C Auto (Bld)Ordered By: Lizet Linares 10-06-2024 Automated immature granulocyte percentage 0.300 % 0.0-0.9 [facility] Lymphocytes Auto (Unsp spec) [#/Vol]Ordered By: Lizet Linares on 10-06-2024 Absolute lymphocyte count 2.46 X10^3/uL 0.83-4. 51 [facility] Lymphocytes/100 WBC Auto (Un sp spec)Ordered By: Lizet Linares on 10-06-2024 Automated lymphocyte count as percentage of total leukocytes 41.8 % High 19-41 [facility] MCV (RBC) [Entitic vol]Order ed By: Lizet Linares on 10-06-2024 MCV (mean corpuscular volume) determination 89.2 fL 81-99 [facility] Mean corpuscular hemoglobin (MCH) determinationOrdered By: Lizet Linares on 10-06-2024 Mean corpuscular hemoglobin (MCH) determination 28.5 pg 27.0-32.0 [facility] Mean corpuscular hemoglobin concentration (MCHC) determinationOrdered By: Lizet Linares on 10-06-2024 Mean corpuscular hemoglobin concentration (MCHC) determination 31.9 g/dL Low 32-36 [facility] Mean platelet volume determi nationOrdered By: Lizet Linares on 10-06-2024 Mean platelet volume determination 9.4 fl 6.2-12.0 [facility] Monocyte percentageOrdered B y: Lizet Linares on 10-06-2024 Monocyte percentage 7.1 % 0-10 [facility] Neutrophil percentageOrdered By: Lizet Linares on 10-06-2024 Neutrophil percentage 46.9 % Low 47-70 [facility] Nucleated red blood cell per centageOrdered By: Lizet Linares on 10-06-2024 Nucleated red blood cell percentage 0 % 0-5 [facility] Platelet countOrdered By: Junie Linares on 10-06-2024 Platelet count 330 K/mm3 150-450 [facility] Potassium measurementOrdered By: Lizet Linares on 10-06-2024 Potassium measurement 3.9 mmol/L 3.5-5.1 [facility] RBC Auto (Bld) [#/Vol]Ordere d By: Lizet Linares on 10-06-2024 Automated blood erythrocyte count 3.44 M/mm3 Low 4.2-5.4 [facility] Serum anion gap measurementO rdered By: Lizet Linares on 10-06-2024 Serum anion gap measurement 6 5-15 [facility] Sodium levelOrdered By: Holly Linares on 10-06-2024 Sodium level 138 mmol/L 136-145 [facility] Urea nitrogen [Mass/Vol]Orde red By: Lizet Linares on 10-06-2024 Serum or plasma urea nitrogen measurement (mass/volume) 18 mg/dL 7-18 [facility] White blood cell (WBC) count Ordered By: Lizet Linares on 10-06-2024 White blood cell (WBC) count 5.9 K/mm3 4.4-11.0 [facility] Absolute neutrophil countOrd ered By: Lizet Linares on 09-29-2024 Absolute neutrophil count 3.1 X10^3/uL 2.0-7.7 [facility] Basophil percentageOrdered B y: Lizet Linares on 09-29-2024 Basophil percentage 0.5 % 0-1 [facility] Blood urea nitrogen (BUN)/cr eatinine ratioOrdered By: Lizet Linares on 09-29-2024 Blood urea nitrogen (BUN)/creatinine ratio 18.3 RATIO 10-20 [facility] Calcium [Mass/Vol]Ordered By : Lizet Linares on 09-29-2024 Serum or plasma calcium measurement (mass/volume) 8.6 mg/dL 8.5-10.1 [facility] Carbon dioxide measurementOr dered By: Lizet Linares on 09-29-2024 Carbon dioxide measurement 26.0 mmol/L 21.0-32.0 [facility] Chloride measurementOrdered By: Lizet Linares on 09-29-2024 Chloride measurement 105 mmol/L 98-107 [facility] Creatinine [Mass/Vol]Ordered By: Lizet Linares on 09-29-2024 Serum or plasma creatinine measurement (mass/volume) 1.20 mg/dL High 0.55-1.02 [facility] Eosinophil percentageOrdered By: [facility] L[facility] on 09-29-2024 Eosinophil percentage 1.7 % 0-5 [facility] Erythrocyte distribution wid th (RBC) [Ratio]Ordered By: Lizet Linares on 09-29-2024 Erythrocyte distribution width ratio 14.1 % 11.6-14.6 [facility] Erythrocyte distribution wid th standard deviationOrdered By: marcelle Linares on 09-29-2024 Erythrocyte distribution width standard deviation 45.8 fl High 35.1-43.9 [facility] Estimated glomerular filtrat ion rate (GFR) AmericanOrdered By: Lizet Linares on 09-29-2024 Estimated glomerular filtration rate (GFR) 59 mL/min Low >60 [facility] Glomerular filtration rate ( GFR) estimationOrdered By: Lizet Linares on 09-29-2024 Glomerular filtration rate (GFR) estimation 49 mL/min Low >60 [facility] Glucose measurementOrdered B y: Lizet Linares on 09-29-2024 Glucose measurement 193 mg/dL High 74-106 [facility] Hematocrit Auto (Bld) [Volum e fraction]Ordered By: Lizet Linares on 09-29-2024 Automated blood hematocrit (percentage) 30.8 % Low 37-47 [facility] Hemoglobin measurementOrdere d By: Lizet Linares on 09-29-2024 Hemoglobin measurement 9.8 g/dL Low 12.0-15.0 [facility] Immature granulocytes/100 WB C Auto (Bld)Ordered By: Lizet Linares on 09-29-2024 Automated immature granulocyte percentage 0.500 % 0.0-0.9 [facility] Lymphocytes Auto (Unsp spec) [#/Vol]Ordered By: Lizet Linares on 09-29-2024 Absolute lymphocyte count 2.13 X10^3/uL 0.83-4. 51 [facility] Lymphocytes/100 WBC Auto (Un sp spec)Ordered By: Lizet Linares on 09-29-2024 Automated lymphocyte count as percentage of total leukocytes 37.2 % 19-41 [facility] MCV (RBC) [Entitic vol]Order ed By: Lizet Linares on 09-29-2024 MCV (mean corpuscular volume) determination 89.5 fL 81-99 [facility] Mean corpuscular hemoglobin (MCH) determinationOrdered By: Lizet Linares on 09-29-2024 Mean corpuscular hemoglobin (MCH) determination 28.5 pg 27.0-32.0 [facility] Mean corpuscular hemoglobin concentration (MCHC) determinationOrdered By: Lizet Linares on 09-29-2024 Mean corpuscular hemoglobin concentration (MCHC) determination 31.8 g/dL Low 32-36 [facility] Mean platelet volume determi nationOrdered By: Lizet Linares on 09-29-2024 Mean platelet volume determination 9.6 fl 6.2-12.0 [facility] Monocyte percentageOrdered B y: Lizet Linares on 09-29-2024 Monocyte percentage 6.5 % 0-10 [facility] Neutrophil percentageOrdered By: Lizet Linares on 09-29-2024 Neutrophil percentage 53.6 % 47-70 [facility] Nucleated red blood cell per centageOrdered By: Lizet Linares on 09-29-2024 Nucleated red blood cell percentage 0 % 0-5 [facility] Platelet countOrdered By: Junie Linares on 09-29-2024 Platelet count 318 K/mm3 150-450 [facility] Potassium measurementOrdered By: Lizet Linares on 09-29-2024 Potassium measurement 3.8 mmol/L 3.5-5.1 [facility] RBC Auto (Bld) [#/Vol]Ordere d By: Lizet Linares on 09-29-2024 Automated blood erythrocyte count 3.44 M/mm3 Low 4.2-5.4 [facility] Serum anion gap measurementO rdered By: Lizet Linares on 09-29-2024 Serum anion gap measurement 7 5-15 [facility] Sodium levelOrdered By: Holly Linares on 09-29-2024 Sodium level 138 mmol/L 136-145 [facility] Urea nitrogen [Mass/Vol]Orde red By: Lizet Linares on 09-29-2024 Serum or plasma urea nitrogen measurement (mass/volume) 22 mg/dL High 7-18 [facility] White blood cell (WBC) count Ordered By: Lizet Linares on 09-29-2024 White blood cell (WBC) count 5.7 K/mm3 4.4-11.0 [facility] Absolute lymphocyte countOrd ered By: Lizet Linares on 02-25-2024 Lymphocytes Auto (Unsp spec) [#/Vol] 2.72 10*3/uL 0.83-4.51 [facility] Automated lymphocyte count a s percentage of total leukocytesOrdered By: Lizet Linares on 02-25-2024 Lymphocytes/100 WBC Auto (Unsp spec) 38.5 % 19-41 [facility] Basophil percentageOrdered B y: Lizet Linares on 02-25-2024 Basophil percentage 10.6 g/dL 12.0-15.0 [facility] Basophil percentage 222 mg/dL 74-106 [facility] Basophil percentage 6.5 g/dL 6.4-8.2 [facility] Basophil percentage 0.30 mg/dL 0.20-1.00 [facility] Basophil percentage 138 mmol/L 136-145 [facility] Basophil percentage 4.0 mmol/L 3.5-5.1 [facility] Basophil percentage 105 mmol/L 98-107 [facility] Basophils (Bld) [#/Vol] 7.1 10*3/uL 4.4-11.0 [facility] Basophils (Bld) [#/Vol] 3.8 10*3/uL 2.0-7.7 [facility] Basophils/100 WBC (Bld) 53.5 % 47-[address] [facility] Basophils/100 WBC (Bld) 5.4 % 0-[address] [facility] Basophils/100 WBC (Bld) 1.8 % 0-[address] [facility] Basophils/100 WBC (Bld) 0.4 % 0-[address] [facility] Determination of erythrocyte mean corpuscular volume (MCV)Ordered By: Lizet Linares on 02-25-2024 MCV (RBC) [Entitic vol] 89.0 fL 81-[address] [facility] Direct bilirubinOrdered By: Lizet Linares on 02-25-2024 Bilirubin.direct [Mass/Vol] 0.11 mg/dL 0.00-0.30 [facility] Erythrocyte distribution wid th ratioOrdered By: [facility] Lina[facility] on 02-25-2024 Erythrocyte distribution width (RBC) [Ratio] 13.6 % 11.6-14.6 [facility] Erythrocyte distribution wid th standard deviationOrdered By: Hollyhartlandnatasha Linares on 02-25-2024 Erythrocyte distribution width (RBC) [Entitic vol] 43.9 fL 35.1-43.9 [facility] Hematocrit Auto (Bld) [Volum e fraction]Ordered By: Hollyhartlandnatasha Linares on 02-25-2024 Hematocrit (Bld) [Volume fraction] 34.1 % 37-47 [facility] Immature granulocytes/100 WB C Auto (Bld)Ordered By: Hollyhartlandnatasha Linares on 02-25-2024 Immature granulocytes/100 WBC (Bld) 0.400 % 0.0-0.9 [facility] No Panel InformationOrdered By: christahartlandnatasha Linares on 02-25-2024 27.7 pg 27.0-32.0 [facility] 31.1 g/dL 32-36 [facility] 335 K/mm3 150-450 [facility] 9.2 fl 6.2-12.0 [facility] 0 % 0-5 [facility] 50 mL/min >60 [facility] 61 mL/min >60 [facility] 12.8 RATIO 10-20 [facility] 3.8 g/dL 2.2-4.2 [facility] 45 U/L 45-117 [facility] 20 U/L 13-56 [facility] 25.0 mmol/L 21.0-32.0 [facility] RBC Auto (Bld) [#/Vol]Ordere d By: Lizet Linares on 02-25-2024 RBC (Bld) [#/Vol] 3.83 10*6/uL 4.2-5.4 [facility] Serum or plasma calcium tai urement (mass/volume)Ordered By: Lizet Linares on 02-25-2024 Calcium [Mass/Vol] 8.9 mg/dL 8.5-10.1 [facility] Serum or plasma creatinine m easurement (mass/volume)Ordered By: Lizet Linares on 02-25-2024 Creatinine [Mass/Vol] 1.17 mg/dL 0.55-1.02 [facility] Serum or plasma thyroid stim ulating hormone (TSH) measurement (units/volume)Ordered By: marcelle Linares on 02-25-2024 TSH Qn 0.07 uIU/mL 0.358-3.74 [facility] Serum or plasma urea nitroge n measurement (mass/volume)Ordered By: Hollyhartlandnatasha Linares on 02-25-2024 Urea nitrogen [Mass/Vol] 15 mg/dL 7-18 [facility] Thin prep Papanicolaou smear with manual screeningOrdered By: christahartlandnatasha Linares on 02-25-2024 Thin prep Papanicolaou smear with manual screening 2.7 g/dL 3.2-5.0 [facility] Thin prep Papanicolaou smear with manual screening 15 U/L 15-37 [facility] Thin prep Papanicolaou smear with manual screening 8 5-15 [facility] Whole blood hemoglobin A1c/t otal hemoglobin ratio (mass fraction)Ordered By: Lizet Linares on 02-25-2024 HbA1c (Bld) [Mass fraction] 6.8 % 3.8-5.6 [facility] Absolute lymphocyte countOrd ered By: Lizet Linares on 02-18-2024 Lymphocytes Auto (Unsp spec) [#/Vol] 2.70 10*3/uL 0.83-4.51 [facility] Automated lymphocyte count a s percentage of total leukocytesOrdered By: Lizet Linares on 02-18-2024 Lymphocytes/100 WBC Auto (Unsp spec) 42.6 % 19-41 [facility] Basophil percentageOrdered B y: Lizet Linares on 02-18-2024 Basophil percentage 11.0 g/dL 12.0-15.0 [facility] Basophil percentage 180 mg/dL 74-106 [facility] Basophil percentage 139 mmol/L 136-145 [facility] Basophil percentage 4.2 mmol/L 3.5-5.1 [facility] Basophil percentage 107 mmol/L 98-107 [facility] Basophils (Bld) [#/Vol] 6.3 10*3/uL 4.4-11.0 [facility] Basophils (Bld) [#/Vol] 3.1 10*3/uL 2.0-7.7 [facility] Basophils/100 WBC (Bld) 48.9 % 47-[address] [facility] Basophils/100 WBC (Bld) 6.0 % 0-[address] [facility] Basophils/100 WBC (Bld) 1.3 % 0-[address] [facility] Basophils/100 WBC (Bld) 0.6 % 0-[address] [facility] Determination of erythrocyte mean corpuscular volume (MCV)Ordered By: Lizet Linares on 02-18-2024 MCV (RBC) [Entitic vol] 89.1 fL 81-[address] [facility] Erythrocyte distribution wid th ratioOrdered By: [facility] Taytal on 02-18-2024 Erythrocyte distribution width (RBC) [Ratio] 13.2 % 11.6-14.6 [facility] Erythrocyte distribution wid th standard deviationOrdered By: Hollyhartlandnatasha Crosstal on 02-18-2024 Erythrocyte distribution width (RBC) [Entitic vol] 43.1 fL 35.1-43.9 [facility] Hematocrit Auto (Bld) [Volum e fraction]Ordered By: Lizet Linares on 02-18-2024 Hematocrit (Bld) [Volume fraction] 34.2 % 37-47 [facility] Immature granulocytes/100 WB C Auto (Bld)Ordered By: Lizet Linares on 02-18-2024 Immature granulocytes/100 WBC (Bld) 0.600 % 0.0-0.9 [facility] No Panel InformationOrdered By: Lizet Linares on 02-18-2024 28.6 pg 27.0-32.0 [facility] 32.2 g/dL 32-36 [facility] 337 K/mm3 150-450 [facility] 9.3 fl 6.2-12.0 [facility] 0 % 0-5 [facility] 45 mL/min >60 [facility] 55 mL/min >60 [facility] 14.8 RATIO 10-20 [facility] 26.0 mmol/L 21.0-32.0 [facility] RBC Auto (Bld) [#/Vol]Ordere d By: Lizet Linares on 02-18-2024 RBC (Bld) [#/Vol] 3.84 10*6/uL 4.2-5.4 [facility] Serum or plasma calcium tai urement (mass/volume)Ordered By: Lizet Linares on 02-18-2024 Calcium [Mass/Vol] 8.8 mg/dL 8.5-10.1 [facility] Serum or plasma creatinine m easurement (mass/volume)Ordered By: Lizet Linares on 02-18-2024 Creatinine [Mass/Vol] 1.28 mg/dL 0.55-1.02 [facility] Serum or plasma urea nitroge n measurement (mass/volume)Ordered By: Lizet Linares on 02-18-2024 Urea nitrogen [Mass/Vol] 19 mg/dL 7-18 [facility] Thin prep Papanicolaou smear with manual screeningOrdered By: Lizet Linares on 02-18-2024 Thin prep Papanicolaou smear with manual screening 6 5-15 [facility] Absolute lymphocyte countOrd ered By: Lizet Linares on 02-11-2024 Lymphocytes Auto (Unsp spec) [#/Vol] 2.53 10*3/uL 0.83-4.51 [facility] Automated lymphocyte count a s percentage of total leukocytesOrdered By: Lizet Linares on 02-11-2024 Lymphocytes/100 WBC Auto (Unsp spec) 35.3 % 19-41 [facility] Basophil percentageOrdered B y: Lizet Linares on 02-11-2024 Basophil percentage 11.3 g/dL 12.0-15.0 [facility] Basophil percentage 218 mg/dL 74-106 [facility] Basophil percentage 136 mmol/L 136-145 [facility] Basophil percentage 3.9 mmol/L 3.5-5.[facility] 103 mmol/L 98-107 [facility] Basophils (Bld) [#/Vol] 7.2 10*3/uL 4.4-11.0 [facility] Basophils (Bld) [#/Vol] 3.9 10*3/uL 2.0-7.7 [facility] Basophils/100 WBC (Bld) 54.8 % 47-[address] [facility] Basophils/100 WBC (Bld) 7.3 % 0-[address] [facility] Basophils/100 WBC (Bld) 1.1 % 0-[address] [facility] Basophils/100 WBC (Bld) 0.7 % 0-[address] [facility] Determination of erythrocyte mean corpuscular volume (MCV)Ordered By: Lizet Linares on 02-11-2024 MCV (RBC) [Entitic vol] 88.9 fL 81-[address] [facility] Erythrocyte distribution wid th ratioOrdered By: [facility] Linares on 02-11-2024 Erythrocyte distribution width (RBC) [Ratio] 13.3 % 11.6-14.6 [facility] Erythrocyte distribution wid th standard deviationOrdered By: Hollyhartlandnatasha Linares on 02-11-2024 Erythrocyte distribution width (RBC) [Entitic vol] 43.8 fL 35.1-43.9 [facility] Hematocrit Auto (Bld) [Volum e fraction]Ordered By: Lizet Linares on 02-11-2024 Hematocrit (Bld) [Volume fraction] 35.4 % 37-47 [facility] Immature granulocytes/100 WB C Auto (Bld)Ordered By: Lizet Linares on 02-11-2024 Immature granulocytes/100 WBC (Bld) 0.800 % 0.0-0.9 [facility] No Panel InformationOrdered By: Lizet Linares on 02-11-2024 28.4 pg 27.0-32.0 [facility] 31.9 g/dL 32-36 [facility] 430 K/mm3 150-450 [facility] 9.2 fl 6.2-12.0 [facility] 0 % 0-5 [facility] 59 mL/min >60 [facility] 72 mL/min >60 [facility] 18.8 RATIO 10-20 [facility] 26.0 mmol/L 21.0-32.0 [facility] RBC Auto (Bld) [#/Vol]Ordere d By: Lizet Linares on 02-11-2024 RBC (Bld) [#/Vol] 3.98 10*6/uL 4.2-5.4 [facility] Serum or plasma calcium tai urement (mass/volume)Ordered By: Lizet Linares on 02-11-2024 Calcium [Mass/Vol] 8.5 mg/dL 8.5-10.1 [facility] Serum or plasma creatinine m easurement (mass/volume)Ordered By: Lizet Linares on 02-11-2024 Creatinine [Mass/Vol] 1.01 mg/dL 0.55-1.02 [facility] Serum or plasma urea nitroge n measurement (mass/volume)Ordered By: Lizet Linares on 02-11-2024 Urea nitrogen [Mass/Vol] 19 mg/dL 7-18 [facility] Thin prep Papanicolaou smear with manual screeningOrdered By: Lizet Linares on 02-11-2024 Thin prep Papanicolaou smear with manual screening 7 5-15 [facility] Bacteria identified Cx Nom ( U)Ordered By: Lizet Linares on 02-09-2024 Culture, urine Proteus mirabilis [facility] Bilirubin Test strip Ql (U)O rdered By: Lizet Linares on 02-09-2024 Bilirubin Ql (U) Negative Negative [facility] Ketones Test strip Ql (U)Ord ered By: Lizet Linares on 02-09-2024 Ketones Ql (U) Negative Negative [facility] Nitrite Test strip Ql (U)Ord ered By: Lizet Linares on 02-09-2024 Nitrite Ql (U) Positive Negative [facility] Protein Test strip Ql (U)Ord ered By: Lizet Linares on 02-09-2024 Protein Ql (U) 15 mg/dl Negative [facility] Urine blood detectionOrdered By: Lizet Linares on 02-09-2024 RBC Ql (U) 10 /ul Negative [facility] Urine clarityOrdered By: Bart Linares on 02-09-2024 Clarity (U) Clear Clear [facility] Urine color determinationOrd ered By: Lizet Linares on 02-09-2024 Color (U) Yellow Yellow [facility] Urine glucose detectionOrder ed By: Lizet Linares on 02-09-2024 Glucose Ql (U) 100 mg/dl Normal [facility] Urine leukocyte esterase det ection by dipstickOrdered By: Lizet Linares on 02-09-2024 Leukocyte esterase Test strip Ql (U) Negative Negative [facility] Urine pHOrdered By: Frank Linares on 02-09-2024 pH (U) 7.0 [pH] 5.0 - 8.0 [facility] Urine specific gravity measu rementOrdered By: Lizet Linares on 02-09-2024 Specific gravity (U) [Rel density] 1.010 1.002-1.03 0 [facility] Urine urobilinogen measureme ntOrdered By: Lizet Linares on 02-09-2024 Urobilinogen Ql (U) Normal mg/dl Normal [facility] Absolute lymphocyte countOrd ered By: Lizet Linares on 02-04-2024 Lymphocytes Auto (Unsp spec) [#/Vol] 3.24 10*3/uL 0.83-4.51 [facility] Automated lymphocyte count a s percentage of total leukocytesOrdered By: Lizet Linares on 02-04-2024 Lymphocytes/100 WBC Auto (Unsp spec) 57.7 % 19-41 [facility] Basophil percentageOrdered B y: Lizet Linares on 02-04-2024 Basophil percentage 11.8 g/dL 12.0-15.0 [facility] Basophil percentage 81 mg/dL 74-106 [facility] Basophil percentage 135 mmol/L 136-145 [facility] Basophil percentage 4.2 mmol/L 3.5-5.1 [facility] Basophil percentage 103 mmol/L 98-107 [facility] Basophils (Bld) [#/Vol] 5.6 10*3/uL 4.4-11.0 [facility] Basophils (Bld) [#/Vol] 2.0 10*3/uL 2.0-7.7 [facility] Basophils/100 WBC (Bld) 35.6 % 47-[address] [facility] Basophils/100 WBC (Bld) 5.5 % 0-[address] [facility] Basophils/100 WBC (Bld) 0.5 % 0-[address] [facility] Blood manual differential co mment interpretation (narrative result)Ordered By: Lizet Linares on 02-04-2024 Manual differential comment Major (Bld) [Interp] SCANNED [facility] Determination of erythrocyte mean corpuscular volume (MCV)Ordered By: Lizet Linares on 02-04-2024 MCV (RBC) [Entitic vol] 89.6 fL 81-[address] [facility] Erythrocyte distribution wid th ratioOrdered By: Lizet Linares on 02-04-2024 Erythrocyte distribution width (RBC) [Ratio] 13.7 % 11.6-14.6 [facility] Erythrocyte distribution wid th standard deviationOrdered By: Lizet Linares on 02-04-2024 Erythrocyte distribution width (RBC) [Entitic vol] 45.0 fL 35.1-43.9 [facility] Hematocrit Auto (Bld) [Volum e fraction]Ordered By: Lizet Linares on 02-04-2024 Hematocrit (Bld) [Volume fraction] 37.2 % 37-47 [facility] Immature granulocytes/100 WB C Auto (Bld)Ordered By: Lizet Linares on 02-04-2024 Immature granulocytes/100 WBC (Bld) 0.200 % 0.0-0.9 [facility] No Panel InformationOrdered By: Lizet Linares on 02-04-2024 28.4 pg 27.0-32.0 [facility] 31.7 g/dL 32-36 [facility] 317 K/mm3 150-450 [facility] 9.3 fl 6.2-12.0 [facility] 0 % 0-5 [facility] 1+ [facility] 53 mL/min >60 [facility] 64 mL/min >60 [facility] 15.3 RATIO 10-20 [facility] 27.0 mmol/L 21.0-32.0 [facility] RBC Auto (Bld) [#/Vol]Ordere d By: Lizet Linares on 02-04-2024 RBC (Bld) [#/Vol] 4.15 10*6/uL 4.2-5.4 [facility] Serum or plasma calcium tai urement (mass/volume)Ordered By: Lizet Linares on 02-04-2024 Calcium [Mass/Vol] 9.0 mg/dL 8.5-10.1 [facility] Serum or plasma creatinine m easurement (mass/volume)Ordered By: Lizet Linares on 02-04-2024 Creatinine [Mass/Vol] 1.11 mg/dL 0.55-1.02 [facility] Serum or plasma urea nitroge n measurement (mass/volume)Ordered By: Lizet Linares on 02-04-2024 Urea nitrogen [Mass/Vol] 17 mg/dL 7-18 [facility] Thin prep Papanicolaou smear with manual screeningOrdered By: Lizet Linares on 02-04-2024 Thin prep Papanicolaou smear with manual screening 5 5-15 [facility] Absolute lymphocyte countOrd ered By: Lizet Linares on 02-02-2024 Lymphocytes Auto (Unsp spec) [#/Vol] 2.22 10*3/uL 0.83-4.51 [facility] Automated lymphocyte count a s percentage of total leukocytesOrdered By: Lizet Linares on 02-02-2024 Lymphocytes/100 WBC Auto (Unsp spec) 43.9 % 19-41 [facility] Basophil percentageOrdered B y: Lizet Linares on 02-02-2024 Basophil percentage 11.0 g/dL 12.0-15.0 [facility] Basophil percentage 95 mg/dL 74-106 [facility] Basophil percentage 6.3 g/dL 6.4-8.2 [facility] Basophil percentage 0.30 mg/dL 0.20-1.00 [facility] Basophil percentage 138 mmol/L 136-145 [facility] Basophil percentage 3.9 mmol/L 3.5-5.1 [facility] Basophil percentage 107 mmol/L 98-107 [facility] Basophils (Bld) [#/Vol] 5.1 10*3/uL 4.4-11.0 [facility] Basophils (Bld) [#/Vol] 2.4 10*3/uL 2.0-7.7 [facility] Basophils/100 WBC (Bld) 46.6 % 47-[address] [facility] Basophils/100 WBC (Bld) 7.3 % 0-[address] [facility] Basophils/100 WBC (Bld) 1.2 % 0-[address] [facility] Basophils/100 WBC (Bld) 0.6 % 0-[address] [facility] Determination of erythrocyte mean corpuscular volume (MCV)Ordered By: Lizet Linares on 02-02-2024 MCV (RBC) [Entitic vol] 90.0 fL 81-[address] [facility] Erythrocyte distribution wid th ratioOrdered By: [facility] on 02-02-2024 Erythrocyte distribution width (RBC) [Ratio] 13.8 % 11.6-14.6 [facility] Erythrocyte distribution wid th standard deviationOrdered By: Hollyhartlandnatasha Crosstal on 02-02-2024 Erythrocyte distribution width (RBC) [Entitic vol] 45.3 fL 35.1-43.9 [facility] Hematocrit Auto (Bld) [Volum e fraction]Ordered By: Hollyhartlandnatasha Linares on 02-02-2024 Hematocrit (Bld) [Volume fraction] 34.3 % 37-47 [facility] Immature granulocytes/100 WB C Auto (Bld)Ordered By: Lizet Linares on 02-02-2024 Immature granulocytes/100 WBC (Bld) 0.400 % 0.0-0.9 [facility] No Panel InformationOrdered By: [facility] Milagros on 02-02-2024 28.9 pg 27.0-32.0 [facility] 32.1 g/dL 32-36 [facility] 279 K/mm3 150-450 [facility] 9.4 fl 6.2-12.0 [facility] 0 % 0-5 [facility] 64 mL/min >60 [facility] 78 mL/min >60 [facility] 17.0 RATIO 10-20 [facility] 3.5 g/dL 2.2-4.2 [facility] 0.8 RATIO 0.9-2.4 [facility] 44 U/L 13-56 [facility] 26.0 mmol/L 21.0-32.0 [facility] RBC Auto (Bld) [#/Vol]Ordere d By: Lizet Linares on 02-02-2024 RBC (Bld) [#/Vol] 3.81 10*6/uL 4.2-5.4 [facility] Serum or plasma calcium tai urement (mass/volume)Ordered By: Lizet Linares on 02-02-2024 Calcium [Mass/Vol] 8.7 mg/dL 8.5-10.1 [facility] Serum or plasma creatinine m easurement (mass/volume)Ordered By: Lizet Linares on 02-02-2024 Creatinine [Mass/Vol] 0.94 mg/dL 0.55-1.02 [facility] Serum or plasma urea nitroge n measurement (mass/volume)Ordered By: Lizet Linares on 02-02-2024 Urea nitrogen [Mass/Vol] 16 mg/dL 7-18 [facility] Thin prep Papanicolaou smear with manual screeningOrdered By: Lizet Linares on 02-02-2024 Thin prep Papanicolaou smear with manual screening 2.8 g/dL 3.2-5.0 [facility] Thin prep Papanicolaou smear with manual screening 42 U/L 15-37 [facility] Thin prep Papanicolaou smear with manual screening 5 5-15 [facility] Absolute lymphocyte countOrd ered By: Lizet Linares on 01-28-2024 Lymphocytes Auto (Unsp spec) [#/Vol] 2.40 10*3/uL 0.83-4.51 [facility] Automated lymphocyte count a s percentage of total leukocytesOrdered By: Lizet Linares on 01-28-2024 Lymphocytes/100 WBC Auto (Unsp spec) 43.0 % 19-41 [facility] Basophil percentageOrdered B y: Lizet Linares on 01-28-2024 Basophil percentage 11.4 g/dL 12.0-15.0 [facility] Basophil percentage 275 mg/dL 74-106 [facility] Basophil percentage 137 mmol/L 136-145 [facility] Basophil percentage 4.0 mmol/L 3.5-5.1 [facility] Basophil percentage 102 mmol/L 98-107 [facility] Basophils (Bld) [#/Vol] 5.6 10*3/uL 4.4-11.0 [facility] Basophils (Bld) [#/Vol] 2.6 10*3/uL 2.0-7.7 [facility] Basophils/100 WBC (Bld) 47.2 % 47-[address] [facility] Basophils/100 WBC (Bld) 6.3 % 0-[address] [facility] Basophils/100 WBC (Bld) 2.3 % 0-[address] [facility] Basophils/100 WBC (Bld) 0.7 % 0-[address] [facility] Determination of erythrocyte mean corpuscular volume (MCV)Ordered By: Lizet Linares on 01-28-2024 MCV (RBC) [Entitic vol] 90.2 fL 81-[address] [facility] Erythrocyte distribution wid th ratioOrdered By: Lizet Linares on 01-28-2024 Erythrocyte distribution width (RBC) [Ratio] 13.7 % 11.6-14.6 [facility] Erythrocyte distribution wid th standard deviationOrdered By: Lizet Linares on 01-28-2024 Erythrocyte distribution width (RBC) [Entitic vol] 44.7 fL 35.1-43.9 [facility] Hematocrit Auto (Bld) [Volum e fraction]Ordered By: Lizet Linares on 01-28-2024 Hematocrit (Bld) [Volume fraction] 34.2 % 37-47 [facility] Immature granulocytes/100 WB C Auto (Bld)Ordered By: Lizet Linares on 01-28-2024 Immature granulocytes/100 WBC (Bld) 0.500 % 0.0-0.9 [facility] No Panel InformationOrdered By: Lizet Linares on 01-28-2024 30.1 pg 27.0-32.0 [facility] 33.3 g/dL 32-36 [facility] 298 K/mm3 150-450 [facility] 9.1 fl 6.2-12.0 [facility] 0 % 0-5 [facility] 53 mL/min >60 [facility] 64 mL/min >60 [facility] 16.1 RATIO 10-20 [facility] 28.0 mmol/L 21.0-32.0 [facility] RBC Auto (Bld) [#/Vol]Ordere d By: Lizet Linares on 01-28-2024 RBC (Bld) [#/Vol] 3.79 10*6/uL 4.2-5.4 [facility] Serum or plasma calcium tai urement (mass/volume)Ordered By: Lizet Linares on 01-28-2024 Calcium [Mass/Vol] 8.8 mg/dL 8.5-10.1 [facility] Serum or plasma creatinine m easurement (mass/volume)Ordered By: Lizet Linares on 01-28-2024 Creatinine [Mass/Vol] 1.12 mg/dL 0.55-1.02 [facility] Serum or plasma urea nitroge n measurement (mass/volume)Ordered By: Lizet Linares on 01-28-2024 Urea nitrogen [Mass/Vol] 18 mg/dL 7-18 [facility] Thin prep Papanicolaou smear with manual screeningOrdered By: Lizet Linares on 01-28-2024 Thin prep Papanicolaou smear with manual screening 7 5-15 [facility] Absolute lymphocyte countOrd ered By: Lizet Linares on 01-21-2024 Lymphocytes Auto (Unsp spec) [#/Vol] 2.61 10*3/uL 0.83-4.51 [facility] Automated lymphocyte count a s percentage of total leukocytesOrdered By: Lizet Linares on 01-21-2024 Lymphocytes/100 WBC Auto (Unsp spec) 38.7 % 19-41 [facility] Basophil percentageOrdered B y: Lizet Linares on 01-21-2024 Basophil percentage 10.7 g/dL 12.0-15.0 [facility] Basophil percentage 138 mg/dL 74-106 [facility] Basophil percentage 139 mmol/L 136-145 [facility] Basophil percentage 4.5 mmol/L 3.5-5.1 [facility] Basophil percentage 106 mmol/L 98-107 [facility] Basophils (Bld) [#/Vol] 6.8 10*3/uL 4.4-11.0 [facility] Basophils (Bld) [#/Vol] 3.6 10*3/uL 2.0-7.7 [facility] Basophils/100 WBC (Bld) 52.9 % 47-[address] [facility] Basophils/100 WBC (Bld) 5.2 % 0-[address] [facility] Basophils/100 WBC (Bld) 2.5 % 0-[address] [facility] Basophils/100 WBC (Bld) 0.4 % 0-[address] [facility] Determination of erythrocyte mean corpuscular volume (MCV)Ordered By: Juniemarcelle Crossjntal on 01-21-2024 MCV (RBC) [Entitic vol] 91.7 fL 81-[address] [facility] Erythrocyte distribution wid th ratioOrdered By: Lizet Portertal on 01-21-2024 Erythrocyte distribution width (RBC) [Ratio] 13.9 % 11.6-14.6 [facility] Erythrocyte distribution wid th standard deviationOrdered By: Asmitanatasha Germantal on 01-21-2024 Erythrocyte distribution width (RBC) [Entitic vol] 47.2 fL 35.1-43.9 [facility] Hematocrit Auto (Bld) [Volum e fraction]Ordered By: Juniechristajanellnatasha Crossjntal on 01-21-2024 Hematocrit (Bld) [Volume fraction] 33.1 % 37-47 [facility] Immature granulocytes/100 WB C Auto (Bld)Ordered By: Juniemarcelle Crossjntal on 03-29-2024 Immature granulocytes/100 WBC (Bld) 0.300 % 0.0-0.9 [facility] No Panel InformationOrdered By: Lizet Linares on 01-21-2024 29.6 pg 27.0-32.0 [facility] 32.3 g/dL 32-36 [facility] 321 K/mm3 150-450 [facility] 9.1 fl 6.2-12.0 [facility] 0 % 0-5 [facility] 50 mL/min >60 [facility] 60 mL/min >60 [facility] 12.7 RATIO 10-20 [facility] 27.0 mmol/L 21.0-32.0 [facility] RBC Auto (Bld) [#/Vol]Ordere d By: Lizet Linares on 01-21-2024 RBC (Bld) [#/Vol] 3.61 10*6/uL 4.2-5.4 [facility] Serum or plasma calcium tai urement (mass/volume)Ordered By: Lizet Linares on 01-21-2024 Calcium [Mass/Vol] 8.9 mg/dL 8.5-10.1 [facility] Serum or plasma creatinine m easurement (mass/volume)Ordered By: Lizet Linares on 01-21-2024 Creatinine [Mass/Vol] 1.18 mg/dL 0.55-1.02 [facility] Serum or plasma urea nitroge n measurement (mass/volume)Ordered By: Lizet Linares on 01-21-2024 Urea nitrogen [Mass/Vol] 15 mg/dL 7-18 [facility] Thin prep Papanicolaou smear with manual screeningOrdered By: Lizet Linares on 01-21-2024 Thin prep Papanicolaou smear with manual screening 6 5-15 [facility] Absolute lymphocyte countOrd ered By: Ellis Peterson on 01-20-2024 Lymphocytes Auto (Unsp spec) [#/Vol] 2.86 10*3/uL 0.83-4.51 [facility] Automated lymphocyte count a s percentage of total leukocytesOrdered By: Ellis Peterson on 01-20-2024 Lymphocytes/100 WBC Auto (Unsp spec) 34.1 % 19-41 [facility] Basophil percentageOrdered B y: Ellis Peterson on 01-20-2024 Basophil percentage 11.3 g/dL 12.0-15.0 [facility] Basophil percentage 83 mg/dL 74-106 [facility] Basophil percentage 139 mmol/L 136-145 [facility] Basophil percentage 4.3 mmol/L 3.5-5.1 [facility] Basophil percentage 106 mmol/L 98-107 [facility] Basophils (Bld) [#/Vol] 8.4 10*3/uL 4.4-11.0 [facility] Basophils (Bld) [#/Vol] 4.9 10*3/uL 2.0-7.7 [facility] Basophils/100 WBC (Bld) 58.1 % 47-[address] [facility] Basophils/100 WBC (Bld) 5.5 % 0-[address] [facility] Basophils/100 WBC (Bld) 1.4 % 0-[address] [facility] Basophils/100 WBC (Bld) 0.5 % 0-[address] [facility] Determination of erythrocyte mean corpuscular volume (MCV)Ordered By: Ellis Peterson on 01-20-2024 MCV (RBC) [Entitic vol] 92.2 fL 81-[address] [facility] Erythrocyte distribution wid th ratioOrdered By: Ellis Peterson on 01-20-2024 Erythrocyte distribution width (RBC) [Ratio] 14.0 % 11.6-14.6 [facility] Erythrocyte distribution wid th standard deviationOrdered By: Ellis Peterson on 01-20-2024 Erythrocyte distribution width (RBC) [Entitic vol] 47.4 fL 35.1-43.9 [facility] Hematocrit Auto (Bld) [Volum e fraction]Ordered By: Ellis Peterson on 01-20-2024 Hematocrit (Bld) [Volume fraction] 35.6 % 37-47 [facility] Immature granulocytes/100 WB C Auto (Bld)Ordered By: Ellis Peterson on 01-20-2024 Immature granulocytes/100 WBC (Bld) 0.400 % 0.0-0.9 [facility] No Panel InformationOrdered By: Ellis Peterson on 03-28-2024 21 pg/mL 3.0-54.0 [facility] 29.3 pg 27.0-32.0 [facility] 31.7 g/dL 32-36 [facility] 379 K/mm3 150-450 [facility] 9.0 fl 6.2-12.0 [facility] 0 % 0-5 [facility] 66 mL/min >60 [facility] 79 mL/min >60 [facility] 62.41 ml/min [facility] 14.0 RATIO 10-20 [facility] 28.0 mmol/L 21.0-32.0 [facility] RBC Auto (Bld) [#/Vol]Ordere d By: Ellis Peterson on 01-20-2024 RBC (Bld) [#/Vol] 3.86 10*6/uL 4.2-5.4 [facility] Serum or plasma calcium tai urement (mass/volume)Ordered By: Ellis Peterson on 01-20-2024 Calcium [Mass/Vol] 9.2 mg/dL 8.5-10.1 [facility] Serum or plasma creatinine m easurement (mass/volume)Ordered By: Ellis Peterson on 01-20-2024 Creatinine [Mass/Vol] 0.93 mg/dL 0.55-1.02 [facility] Serum or plasma urea nitroge n measurement (mass/volume)Ordered By: Ellis Peterson on 01-20-2024 Urea nitrogen [Mass/Vol] 13 mg/dL 7-18 [facility] Thin prep Papanicolaou smear with manual screeningOrdered By: Ellis Peterson on 01-20-2024 Thin prep Papanicolaou smear with manual screening 5 5-15 [facility] Clostridioides difficile nuc leic acid assay by PCROrdered By: Lizet Linares on 01-19-2024 C. difficile DNA ZHANE+probe Ql (Unsp spec) [facility] Absolute lymphocyte countOrd ered By: Lizet Linares on 01-17-2024 Lymphocytes Auto (Unsp spec) [#/Vol] 2.59 10*3/uL 0.83-4.51 [facility] Automated lymphocyte count a s percentage of total leukocytesOrdered By: Lizet Linares on 01-17-2024 Lymphocytes/100 WBC Auto (Unsp spec) 36.9 % 19-41 [facility] Bacteria identified Cx Nom ( U)Ordered By: Lizet Linares on 01-17-2024 Culture, urine Serratia fonticola [facility] Basophil percentageOrdered B y: Lizet Linares on 01-17-2024 Basophil percentage 10.2 g/dL 12.0-15.0 [facility] Basophil percentage 199 mg/dL 74-106 [facility] Basophil percentage 6.0 g/dL 6.4-8.2 [facility] Basophil percentage 0.20 mg/dL 0.20-1.00 [facility] Basophil percentage 136 mmol/L 136-145 [facility] Basophil percentage 3.8 mmol/L 3.5-5.1 [facility] Basophil percentage 103 mmol/L 98-107 [facility] Basophils (Bld) [#/Vol] 7.0 10*3/uL 4.4-11.0 [facility] Basophils (Bld) [#/Vol] 3.9 10*3/uL 2.0-7.7 [facility] Basophils/100 WBC (Bld) 55.5 % 47-[address] [facility] Basophils/100 WBC (Bld) 5.1 % 0-[address] [facility] Basophils/100 WBC (Bld) 1.4 % 0-[address] [facility] Basophils/100 WBC (Bld) 0.7 % 0-[address] [facility] Basophil percentage 0 SEEN /hpf 0-5 [facility] Bilirubin Test strip Ql (U)O rdered By: Lizet Linares on 01-17-2024 Bilirubin Ql (U) Negative Negative [facility] Determination of erythrocyte mean corpuscular volume (MCV)Ordered By: Lizet Linares on 01-17-2024 MCV (RBC) [Entitic vol] 91.3 fL 81-[address] [facility] Erythrocyte distribution wid th ratioOrdered By: Lizet Linares on 01-17-2024 Erythrocyte distribution width (RBC) [Ratio] 13.6 % 11.6-14.6 [facility] Erythrocyte distribution wid th standard deviationOrdered By: Lizet Linares on 01-17-2024 Erythrocyte distribution width (RBC) [Entitic vol] 45.4 fL 35.1-43.9 [facility] Hematocrit Auto (Bld) [Volum e fraction]Ordered By: Lizet Linares on 01-17-2024 Hematocrit (Bld) [Volume fraction] 32.4 % 37-47 [facility] Immature granulocytes/100 WB C Auto (Bld)Ordered By: Lizet Linares on 01-17-2024 Immature granulocytes/100 WBC (Bld) 0.400 % 0.0-0.9 [facility] Ketones Test strip Ql (U)Ord ered By: Lizet Linares on 01-17-2024 Ketones Ql (U) Negative Negative [facility] Mucus LM Ql (Urine sed)Order ed By: Lizet Linares on 01-17-2024 Mucus Ql (Urine sed) 0 SEEN /hpf [facility] Nitrite Test strip Ql (U)Ord ered By: Lizet Linares on 01-17-2024 Nitrite Ql (U) Negative Negative [facility] No Panel InformationOrdered By: Lizet Linares on 01-17-2024 28.7 pg 27.0-32.0 [facility] 31.5 g/dL 32-36 [facility] 339 K/mm3 150-450 [facility] 9.2 fl 6.2-12.0 [facility] 0 % 0-5 [facility] 59 mL/min >60 [facility] 71 mL/min >60 [facility] 15.7 RATIO 10-20 [facility] 3.3 g/dL 2.2-4.2 [facility] 0.8 RATIO 0.9-2.4 [facility] 49 U/L 45-117 [facility] 30 U/L 13-56 [facility] 27.0 mmol/L 21.0-32.0 [facility] 0 SEEN /hpf 0-5 [facility] Protein Test strip Ql (U)Ord ered By: Lizet Linares on 01-17-2024 Protein Ql (U) Negative Negative [facility] RBC Auto (Bld) [#/Vol]Ordere d By: Lizet Linares on 01-17-2024 RBC (Bld) [#/Vol] 3.55 10*6/uL 4.2-5.4 [facility] Serum or plasma calcium tai urement (mass/volume)Ordered By: Lizet Linares on 01-17-2024 Calcium [Mass/Vol] 8.0 mg/dL 8.5-10.1 [facility] Serum or plasma creatinine m easurement (mass/volume)Ordered By: Lizet Linares on 01-17-2024 Creatinine [Mass/Vol] 1.02 mg/dL 0.55-1.02 [facility] Serum or plasma urea nitroge n measurement (mass/volume)Ordered By: Lizet Linares on 01-17-2024 Urea nitrogen [Mass/Vol] 16 mg/dL 7-18 [facility] Squamous epithelial cells de tection in urine sediment by light microscopyOrdered By: Lizet Linares on 01-17-2024 Epithelial cells.squamous LM Ql (Urine sed) 0 SEEN /hpf 5-10 [facility] Thin prep Papanicolaou smear with manual screeningOrdered By: Lizet Linaers on 01-17-2024 Thin prep Papanicolaou smear with manual screening 2.7 g/dL 3.2-5.0 [facility] Thin prep Papanicolaou smear with manual screening 19 U/L 15-37 [facility] Thin prep Papanicolaou smear with manual screening 6 5-15 [facility] Urine blood detectionOrdered By: Lizet Linares on 01-17-2024 RBC Ql (U) Negative Negative [facility] Urine clarityOrdered By: Bart Linares on 01-17-2024 Clarity (U) Clear Clear [facility] Urine color determinationOrd ered By: Lizet Linares on 01-17-2024 Color (U) Yellow Yellow [facility] Urine glucose detectionOrder ed By: Lizet Linares on 01-17-2024 Glucose Ql (U) 100 mg/dl Normal [facility] Urine leukocyte esterase det ection by dipstickOrdered By: Lizet Linares on 01-17-2024 Leukocyte esterase Test strip Ql (U) Negative Negative [facility] Urine pHOrdered By: Frank Linares on 01-17-2024 pH (U) 6.0 [pH] 5.0 - 8.0 [facility] Urine sediment bacteria coun t by microscopy (number/high power field)Ordered By: Lizet Linares on 01-17-2024 Bacteria LM.HPF (Urine sed) [#/Area] 0 /[HPF] None Seen [facility] Urine specific gravity measu rementOrdered By: [facility]eston[facility]asha Linares on 01-17-2024 Specific gravity (U) [Rel density] 1.015 1.002-1.03 0 [facility] Urine urobilinogen measureme ntOrdered By: Lizet Linares on 01-17-2024 Urobilinogen Ql (U) Normal mg/dl Normal [facility] Absolute lymphocyte countOrd ered By: Lizet Linares on 01-14-2024 Lymphocytes Auto (Unsp spec) [#/Vol] 2.49 10*3/uL 0.83-4.51 [facility] Automated lymphocyte count a s percentage of total leukocytesOrdered By: Lizet Linares on 01-14-2024 Lymphocytes/100 WBC Auto (Unsp spec) 32.0 % 19-41 [facility] Basophil percentageOrdered B y: Lizet Lniares on 01-14-2024 Basophil percentage 10.1 g/dL 12.0-15.0 [facility] Basophil percentage 268 mg/dL 74-106 [facility] Basophil percentage 136 mmol/L 136-145 [facility] Basophil percentage 4.3 mmol/L 3.5-5.1 [facility] Basophil percentage 104 mmol/L 98-107 [facility] Basophils (Bld) [#/Vol] 7.8 10*3/uL 4.4-11.0 [facility] Basophils (Bld) [#/Vol] 4.8 10*3/uL 2.0-7.7 [facility] Basophils/100 WBC (Bld) 61.1 % 47-[address] [facility] Basophils/100 WBC (Bld) 5.1 % 0-[address] [facility] Basophils/100 WBC (Bld) 1.0 % 0-[address] [facility] Basophils/100 WBC (Bld) 0.4 % 0-[address] [facility] Determination of erythrocyte mean corpuscular volume (MCV)Ordered By: Lizet Linares on 01-14-2024 MCV (RBC) [Entitic vol] 90.9 fL 81-[address] [facility] Erythrocyte distribution wid th ratioOrdered By: Lizet Linares on 01-14-2024 Erythrocyte distribution width (RBC) [Ratio] 13.6 % 11.6-14.6 [facility] Erythrocyte distribution wid th standard deviationOrdered By: Lizet Linares on 01-14-2024 Erythrocyte distribution width (RBC) [Entitic vol] 45.1 fL 35.1-43.9 [facility] Hematocrit Auto (Bld) [Volum e fraction]Ordered By: Lizet Linares on 01-14-2024 Hematocrit (Bld) [Volume fraction] 31.8 % 37-47 [facility] Immature granulocytes/100 WB C Auto (Bld)Ordered By: Lizet Linares on 01-14-2024 Immature granulocytes/100 WBC (Bld) 0.400 % 0.0-0.9 [facility] No Panel InformationOrdered By: Lizet Linares on 01-14-2024 28.9 pg 27.0-32.0 [facility] 31.8 g/dL 32-36 [facility] 355 K/mm3 150-450 [facility] 9.2 fl 6.2-12.0 [facility] 0 % 0-5 [facility] 55 mL/min >60 [facility] 66 mL/min >60 [facility] 14.8 RATIO 10-20 [facility] 27.0 mmol/L 21.0-32.0 [facility] RBC Auto (Bld) [#/Vol]Ordere d By: Lizet Linares on 01-14-2024 RBC (Bld) [#/Vol] 3.50 10*6/uL 4.2-5.4 [facility] Serum or plasma calcium tai urement (mass/volume)Ordered By: Lizet Linares on 01-14-2024 Calcium [Mass/Vol] 8.5 mg/dL 8.5-10.1 [facility] Serum or plasma creatinine m easurement (mass/volume)Ordered By: Juniechristajanellnatasha Linares on 01-14-2024 Creatinine [Mass/Vol] 1.08 mg/dL 0.55-1.02 [facility] Serum or plasma urea nitroge n measurement (mass/volume)Ordered By: Lizet Linares on 01-14-2024 Urea nitrogen [Mass/Vol] 16 mg/dL 7-18 [facility] Thin prep Papanicolaou smear with manual screeningOrdered By: christajanellnatasha Linares on 01-14-2024 Thin prep Papanicolaou smear with manual screening 5 5-15 [facility] Absolute lymphocyte countOrd ered By: christahartlandnatasha Linares on 01-12-2024 Lymphocytes Auto (Unsp spec) [#/Vol] 2.91 10*3/uL 0.83-4.51 [facility] Automated lymphocyte count a s percentage of total leukocytesOrdered By: Lizet Linares on 01-12-2024 Lymphocytes/100 WBC Auto (Unsp spec) 31.8 % 19-41 [facility] Basophil percentageOrdered B y: Lizet Tayjntal on 01-12-2024 Basophil percentage 11.1 g/dL 12.0-15.0 [facility] Basophil percentage 215 mg/dL 74-106 [facility] Basophil percentage 136 mmol/L 136-145 [facility] Basophil percentage 4.2 mmol/L 3.5-5.1 [facility] Basophil percentage 103 mmol/L 98-107 [facility] Basophils (Bld) [#/Vol] 9.2 10*3/uL 4.4-11.0 [facility] Basophils (Bld) [#/Vol] 5.7 10*3/uL 2.0-7.7 [facility] Basophils/100 WBC (Bld) 61.9 % 47-[address] [facility] Basophils/100 WBC (Bld) 4.6 % 0-[address] [facility] Basophils/100 WBC (Bld) 0.8 % 0-[address] [facility] Basophils/100 WBC (Bld) 0.4 % 0-[address] [facility] Determination of erythrocyte mean corpuscular volume (MCV)Ordered By: Lizet Linares on 01-12-2024 MCV (RBC) [Entitic vol] 90.4 fL 81-[address] [facility] Erythrocyte distribution wid th ratioOrdered By: Lizet Linares on 01-12-2024 Erythrocyte distribution width (RBC) [Ratio] 13.5 % 11.6-14.6 [facility] Erythrocyte distribution wid th standard deviationOrdered By: Lizet Linares on 01-12-2024 Erythrocyte distribution width (RBC) [Entitic vol] 44.3 fL 35.1-43.9 [facility] Hematocrit Auto (Bld) [Volum e fraction]Ordered By: Lizet Linares on 01-12-2024 Hematocrit (Bld) [Volume fraction] 34.7 % 37-47 [facility] Immature granulocytes/100 WB C Auto (Bld)Ordered By: Lizet Linares on 01-12-2024 Immature granulocytes/100 WBC (Bld) 0.500 % 0.0-0.9 [facility] No Panel InformationOrdered By: Lizet Linares on 01-12-2024 28.9 pg 27.0-32.0 [facility] 32.0 g/dL 32-36 [facility] 439 K/mm3 150-450 [facility] 9.5 fl 6.2-12.0 [facility] 0 % 0-5 [facility] 59 mL/min >60 [facility] 72 mL/min >60 [facility] 21.8 RATIO 10-20 [facility] 26.0 mmol/L 21.0-32.0 [facility] RBC Auto (Bld) [#/Vol]Ordere d By: Lizet Linares on 01-12-2024 RBC (Bld) [#/Vol] 3.84 10*6/uL 4.2-5.4 [facility] Serum or plasma calcium tai urement (mass/volume)Ordered By: Lizet Linares on 01-12-2024 Calcium [Mass/Vol] 8.7 mg/dL 8.5-10.1 [facility] Serum or plasma creatinine m easurement (mass/volume)Ordered By: Lizet Linares on 01-12-2024 Creatinine [Mass/Vol] 1.01 mg/dL 0.55-1.02 [facility] Serum or plasma urea nitroge n measurement (mass/volume)Ordered By: Lizet Linares on 01-12-2024 Urea nitrogen [Mass/Vol] 22 mg/dL 7-18 [facility] Thin prep Papanicolaou smear with manual screeningOrdered By: christahartlandnatasha Linares on 01-12-2024 Thin prep Papanicolaou smear with manual screening 7 - [facility] Absolute lymphocyte countOrd ered By: Lizet Linares on 01-07-2024 Lymphocytes Auto (Unsp spec) [#/Vol] 2.39 10*3/uL 0.83-4.51 [facility] Automated lymphocyte count a s percentage of total leukocytesOrdered By: Lizet Linares on 01-07-2024 Lymphocytes/100 WBC Auto (Unsp spec) 33.3 % 19-41 [facility] Basophil percentageOrdered B y: Lizet Linares on 01-07-2024 Basophil percentage 10.5 g/dL 12.0-15.0 [facility] Basophil percentage 350 mg/dL 74-106 [facility] Basophil percentage 137 mmol/L 136-145 [facility] Basophil percentage 3.8 mmol/L 3.5-5.1 [facility] Basophil percentage 103 mmol/L 98-107 [facility] Basophils (Bld) [#/Vol] 7.2 10*3/uL 4.4-11.0 [facility] Basophils (Bld) [#/Vol] 4.3 10*3/uL 2.0-7.7 [facility] Basophils/100 WBC (Bld) 59.4 % 47-[address] [facility] Basophils/100 WBC (Bld) 5.6 % 0-[address] [facility] Basophils/100 WBC (Bld) 0.8 % 0-[address] [facility] Basophils/100 WBC (Bld) 0.3 % 0-[address] [facility] Determination of erythrocyte mean corpuscular volume (MCV)Ordered By: Lizet Linares on 01-07-2024 MCV (RBC) [Entitic vol] 90.6 fL 81-[address] [facility] Erythrocyte distribution wid th ratioOrdered By: Lizet Linares on 01-07-2024 Erythrocyte distribution width (RBC) [Ratio] 13.6 % 11.6-14.6 [facility] Erythrocyte distribution wid th standard deviationOrdered By: Lizet Linares on 01-07-2024 Erythrocyte distribution width (RBC) [Entitic vol] 44.8 fL 35.1-43.9 [facility] Hematocrit Auto (Bld) [Volum e fraction]Ordered By: Lizet Linares on 01-07-2024 Hematocrit (Bld) [Volume fraction] 31.8 % 37-47 [facility] Immature granulocytes/100 WB C Auto (Bld)Ordered By: Lizet Linares on 01-07-2024 Immature granulocytes/100 WBC (Bld) 0.600 % 0.0-0.9 [facility] No Panel InformationOrdered By: Hollyhartlandnatasha Linares on 01-07-2024 29.9 pg 27.0-32.0 [facility] 33.0 g/dL 32-36 [facility] 310 K/mm3 150-450 [facility] 9.3 fl 6.2-12.0 [facility] 0 % 0-5 [facility] 59 mL/min >60 [facility] 71 mL/min >60 [facility] 22.5 RATIO 10-20 [facility] 27.0 mmol/L 21.0-32.0 [facility] RBC Auto (Bld) [#/Vol]Ordere d By: Lizet Linares on 01-07-2024 RBC (Bld) [#/Vol] 3.51 10*6/uL 4.2-5.4 [facility] Serum or plasma calcium tai urement (mass/volume)Ordered By: Lizet Linares on 01-07-2024 Calcium [Mass/Vol] 8.3 mg/dL 8.5-10.1 [facility] Serum or plasma creatinine m easurement (mass/volume)Ordered By: Lizet Linares on 01-07-2024 Creatinine [Mass/Vol] 1.02 mg/dL 0.55-1.02 [facility] Serum or plasma urea nitroge n measurement (mass/volume)Ordered By: Lizet Linares on 01-07-2024 Urea nitrogen [Mass/Vol] 23 mg/dL 7-18 [facility] Thin prep Papanicolaou smear with manual screeningOrdered By: Hollyhartlandnatasha Linares on 01-07-2024 Thin prep Papanicolaou smear with manual screening 7 5-15 [facility] Basophil percentageOrdered B y: Ana Rivera on 01-05-2024 Basophil percentage 10.6 g/dL 12.0-15.0 [facility] Basophil percentage 237 mg/dL 74-106 [facility] Basophil percentage 136 mmol/L 136-145 [facility] Basophil percentage 3.9 mmol/L 3.5-5.1 [facility] Basophil percentage 101 mmol/L 98-107 [facility] Basophils (Bld) [#/Vol] 10.0 10*3/uL 4.4-11.0 [facility] COVID-19 virus antigen assay Ordered By: Ana Rivera on 01-05-2024 SARS-CoV-2 (COVID-19) Ag IA.rapid Ql (Resp) [facility] Determination of erythrocyte mean corpuscular volume (MCV)Ordered By: Ana Rivera on 01-05-2024 MCV (RBC) [Entitic vol] 91.6 fL 81-99 [facility] Erythrocyte distribution wid th ratioOrdered By: Ana Rivera on 01-05-2024 Erythrocyte distribution width (RBC) [Ratio] 13.4 % 11.6-14.6 [facility] Erythrocyte distribution wid th standard deviationOrdered By: Ana Rivera on 01-05-2024 Erythrocyte distribution width (RBC) [Entitic vol] 45.5 fL 35.1-43.9 [facility] Hematocrit Auto (Bld) [Volum e fraction]Ordered By: Ana Rivera on 01-05-2024 Hematocrit (Bld) [Volume fraction] 32.7 % 37-47 [facility] No Panel InformationOrdered By: Ana Rivera on 01-05-2024 29.7 pg 27.0-32.0 [facility] 32.4 g/dL 32-36 [facility] 297 K/mm3 150-450 [facility] 9.3 fl 6.2-12.0 [facility] 60 mL/min >60 [facility] 73 mL/min >60 [facility] 54.57 ml/min [facility] 33.0 RATIO 10-20 [facility] 28.0 mmol/L 21.0-32.0 [facility] RBC Auto (Bld) [#/Vol]Ordere d By: Ana Rivera on 01-05-2024 RBC (Bld) [#/Vol] 3.57 10*6/uL 4.2-5.4 [facility] Serum or plasma calcium tai urement (mass/volume)Ordered By: Ana Rivera on 01-05-2024 Calcium [Mass/Vol] 8.6 mg/dL 8.5-10.1 [facility] Serum or plasma creatinine m easurement (mass/volume)Ordered By: Ana Rivera on 01-05-2024 Creatinine [Mass/Vol] 1.00 mg/dL 0.55-1.02 [facility] Serum or plasma urea nitroge n measurement (mass/volume)Ordered By: Ana Rivera on 01-05-2024 Urea nitrogen [Mass/Vol] 33 mg/dL 7-18 [facility] Thin prep Papanicolaou smear with manual screeningOrdered By: Ana Rivera on 01-05-2024 Thin prep Papanicolaou smear with manual screening 138 mg/dL 74-106 [facility] Thin prep Papanicolaou smear with manual screening 7 5-15 [facility] Absolute lymphocyte countOrd ered By: Ana Rivera on 01-04-2024 Lymphocytes Auto (Unsp spec) [#/Vol] 2.79 10*3/uL 0.83-4.51 [facility] Automated lymphocyte count a s percentage of total leukocytesOrdered By: Ana Rivera on 01-04-2024 Lymphocytes/100 WBC Auto (Unsp spec) 31.0 % 19-41 [facility] Basophil percentageOrdered B y: Ana Rivera on 01-04-2024 Basophils (Bld) [#/Vol] 5.5 10*3/uL 2.0-7.7 [facility] Basophils/100 WBC (Bld) 60.6 % 47-[address] [facility] Basophils/100 WBC (Bld) 5.1 % 0-[address] [facility] Basophils/100 WBC (Bld) 1.3 % 0-[address] [facility] Basophils/100 WBC (Bld) 0.4 % 0-[address] [facility] Immature granulocytes/100 WB C Auto (Bld)Ordered By: Ana Rivera on 01-04-2024 Immature granulocytes/100 WBC (Bld) 1.600 % 0.0-0.9 [facility] No Panel InformationOrdered By: Ana Rivera on 01-04-2024 0 % 0-5 [facility] Basophil percentageOrdered B y: Chavez Alcala on 01-03-2024 Chloride [Moles/Vol] 103 mmol/L 98-107 [facility] Glucose [Mass/Vol] 403 mg/dL 74-106 [facility] Comment on above: Glucose result great er than or equal to 200 mg/dLsuggests DIABETES MELLITUS per A.D.A. criteria. Hemoglobin (Bld) [Mass/Vol] 10.3 g/dL 12.0-15.0 [facility] Potassium [Moles/Vol] 4.5 mmol/L 3.5-5.1 [facility] Sodium [Moles/Vol] 137 mmol/L 136-145 [facility] WBC (Bld) [#/Vol] 9.3 10*3/uL 4.4-11.0 [facility] Determination of erythrocyte mean corpuscular volume (MCV)Ordered By: Chavez Alcala on 01-03-2024 MCV (RBC) [Entitic vol] 90.9 fL 81-[address] [facility] Erythrocyte distribution wid th ratioOrdered By: Chavez Alcala on 01-03-2024 Erythrocyte distribution width (RBC) [Ratio] 13.6 % 11.6-14.6 [facility] Erythrocyte distribution wid th standard deviationOrdered By: Chavez Alcala on 01-03-2024 Erythrocyte distribution width (RBC) [Entitic vol] 45.0 fL 35.1-43.9 [facility] Hematocrit Auto (Bld) [Volum e fraction]Ordered By: Chavez Alcala on 01-03-2024 Hematocrit (Bld) [Volume fraction] 32.1 % 37-47 [facility] Laboratory - Chemistry and C hemistry - challengeOrdered By: Chavez Alcala on 01-03-2024 CO2 [Moles/Vol] 26.0 mmol/L 21.0-32.0 [facility] Urea nitrogen/Creatinine [Mass ratio] 32.7 mg/mg 10-20 [facility] Laboratory - Hematology and Cell countsOrdered By: Chavez Alcala on 01-03-2024 MCH (RBC) [Entitic mass] 29.2 pg 27.0-32.0 [facility] MCHC (RBC) [Mass/Vol] 32.1 g/dL 32-36 [facility] Platelet mean volume (Bld) [Entitic vol] 9.4 fL 6.2-12.0 [facility] Platelets (Bld) [#/Vol] 291 10*3/uL 150-450 [facility] No Panel InformationOrdered By: Chavez Alcala on 01-03-2024 Estimated Creatinine Clearance Calc 48.23 ml/min [facility] Estimated GFR (MDRD) Amer 63 mL/min >60 [facility] Comment on above: GFR Calc Estimated GFR (MDRD) Non-Af Amer 52 mL/min >60 [facility] Comment on above: Non- GFR Calc RBC Auto (Bld) [#/Vol]Ordere d By: Chavez Alcala on 01-03-2024 RBC (Bld) [#/Vol] 3.53 10*6/uL 4.2-5.4 [facility] Serum or plasma calcium tai urement (mass/volume)Ordered By: Chavez Alcala on 01-03-2024 Calcium [Mass/Vol] 8.5 mg/dL 8.5-10.1 [facility] Serum or plasma creatinine m easurement (mass/volume)Ordered By: Chavez Alcala on 01-03-2024 Creatinine [Mass/Vol] 1.13 mg/dL 0.55-1.02 [facility] Comment on above: The validity of the calculated GFR & GFRAA in patients over 70 years has not been determined. Clinical correlation is essential. Serum or plasma urea nitroge n measurement (mass/volume)Ordered By: Chavez Alcala on 01-03-2024 Urea nitrogen [Mass/Vol] 37 mg/dL 7-18 [facility] Thin prep Papanicolaou smear with manual screeningOrdered By: Ana Rivera on 01-03-2024 Thin prep Papanicolaou smear with manual screening 333 mg/dL 74-106 [facility] Comment on above: MANAGEMENT OF PATIEN T CARE PER NURSING PROTOCOL Thin prep Papanicolaou smear with manual screeningOrdered By: Chavze Alcala on 01-03-2024 Thin prep Papanicolaou smear with manual screening 8 5-15 [facility] Absolute lymphocyte countOrd ered By: Hansa Cast on 01-02-2024 Lymphocytes Auto (Unsp spec) [#/Vol] 2.24 10*3/uL 0.83-4.51 [facility] Automated lymphocyte count a s percentage of total leukocytesOrdered By: Hansa Cast on 01-02-2024 Lymphocytes/100 WBC Auto (Unsp spec) 31.4 % 19-41 [facility] Basophil percentageOrdered B y: Hansa Serene on 01-02-2024 Basophil percentage 6.9 g/dL 6.4-8.2 [facility] Basophil percentage 0.30 mg/dL 0.20-1.00 [facility] Basophils/100 WBC (Bld) 0.4 % 0-1 [facility] Bilirubin [Mass/Vol] 0.30 mg/dL 0.20-1.00 [facility] Comment on above: For patients on eltr ombopag therapy, use of [employer] [place] TBIL is not recommended. Eosinophils/100 WBC (Bld) 1.1 % 0-5 [facility] Monocytes/100 WBC (Bld) 5.2 % 0-10 [facility] Neutrophils (Bld) [#/Vol] 4.3 10*3/uL 2.0-7.7 [facility] Neutrophils/100 WBC (Bld) 60.2 % 47-70 [facility] Protein [Mass/Vol] 6.9 g/dL 6.4-8.2 [facility] Immature granulocytes/100 WB C Auto (Bld)Ordered By: [facility] on 01-02-2024 Immature granulocytes/100 WBC (Bld) 1.700 % 0.0-0.9 [facility] Comment on above: IG% - Immature Granu locytes (promyelocytes, myelocytes and metamyelocytes) > 1% indicates that a LEFT SHIFT is Present. Laboratory - Chemistry and C hemistry - challengeOrdered By: Hansa Serene on 01-02-2024 Albumin/Globulin [Mass ratio] 0.8 {ratio} 0.9-2.4 [facility] ALP [Catalytic activity/Vol] 56 U/L [facility] ALT [Catalytic activity/Vol] 27 U/L [facility] Globulin (S) [Mass/Vol] 3.9 g/dL 2.2-4.[address] [facility] Laboratory - Hematology and Cell countsOrdered By: Hansa Serene on 01-02-2024 Nucleated RBC/100 WBC (Bld) [Ratio] 0 % 0-5 [facility] No Panel InformationOrdered By: [facility] on 01-02-2024 3.9 g/dL 2.2-4.2 [facility] 0.8 RATIO 0.9-2.4 [facility] 56 U/L [facility] 27 U/L [facility] Serum or plasma thyroid stim ulating hormone (TSH) measurement (units/volume)Ordered By: [facility] on 01-02-2024 TSH Qn 0.36 uIU/mL 0.358-3.74 [facility] Thin prep Papanicolaou smear with manual screeningOrdered By: [facility] on 01-02-2024 Thin prep Papanicolaou smear with manual screening 3.0 g/dL 3.2-5.0 [facility] Thin prep Papanicolaou smear with manual screening 34 U/L 15-37 [facility] Thin prep Papanicolaou smear with manual screening 1.82 ng/dL 0.76-1.46 [facility] Absolute lymphocyte countOrd ered By: Raisa Mc on 01-01-2024 Lymphocytes Auto (Unsp spec) [#/Vol] 2.66 10*3/uL 0.83-4.51 [facility] Automated lymphocyte count a s percentage of total leukocytesOrdered By: Raisa Mc on 01-01-2024 Lymphocytes/100 WBC Auto (Unsp spec) 26.5 % 19-41 [facility] Basophil percentageOrdered B y: Raisa Mc on 01-01-2024 Basophils/100 WBC (Bld) 0.4 % 0-[address] [facility] Chloride [Moles/Vol] 102 mmol/L 98-107 [facility] Eosinophils/100 WBC (Bld) 0.8 % 0-5 [facility] Glucose [Mass/Vol] 405 mg/dL 74-106 [facility] Comment on above: Glucose result great er than or equal to 200 mg/dLsuggests DIABETES MELLITUS per A.D.A. criteria. Hemoglobin (Bld) [Mass/Vol] 11.2 g/dL 12.0-15.0 [facility] Monocytes/100 WBC (Bld) 4.7 % 0-[address] [facility] Neutrophils (Bld) [#/Vol] 6.7 10*3/uL 2.0-7.7 [facility] Neutrophils/100 WBC (Bld) 66.7 % 47-70 [facility] Potassium [Moles/Vol] 4.7 mmol/L 3.5-5.1 [facility] Sodium [Moles/Vol] 134 mmol/L 136-145 [facility] WBC (Bld) [#/Vol] 10.0 10*3/uL 4.4-11.0 [facility] Determination of erythrocyte mean corpuscular volume (MCV)Ordered By: Raisa Mc on 01-01-2024 MCV (RBC) [Entitic vol] 89.5 fL 81-[address] [facility] Erythrocyte distribution wid th ratioOrdered By: Raisa Mc on 01-01-2024 Erythrocyte distribution width (RBC) [Ratio] 13.3 % 11.6-14.6 [facility] Erythrocyte distribution wid th standard deviationOrdered By: Raisa Mc on 01-01-2024 Erythrocyte distribution width (RBC) [Entitic vol] 43.3 fL 35.1-43.9 [facility] Hematocrit Auto (Bld) [Volum e fraction]Ordered By: Raisa Mc on 01-01-2024 Hematocrit (Bld) [Volume fraction] 35.0 % 37-47 [facility] Immature granulocytes/100 WB C Auto (Bld)Ordered By: Raisa Mc on 01-01-2024 Immature granulocytes/100 WBC (Bld) 0.900 % 0.0-0.9 [facility] Comment on above: IG% - Immature Granu locytes (promyelocytes, myelocytes and metamyelocytes) > 1% indicates that a LEFT SHIFT is Present. Laboratory - Chemistry and C hemistry - challengeOrdered By: Raisa Mc on 01-01-2024 CO2 [Moles/Vol] 27.0 mmol/L 21.0-32.0 [facility] Urea nitrogen/Creatinine [Mass ratio] 20.3 mg/mg 10-20 [facility] Laboratory - Hematology and Cell countsOrdered By: Raisa Mc on 01-01-2024 MCH (RBC) [Entitic mass] 28.6 pg 27.0-32.0 [facility] MCHC (RBC) [Mass/Vol] 32.0 g/dL 32-36 [facility] Nucleated RBC/100 WBC (Bld) [Ratio] 0 % 0-5 [facility] Platelet mean volume (Bld) [Entitic vol] 9.4 fL 6.2-12.0 [facility] Platelets (Bld) [#/Vol] 309 10*3/uL 150-450 [facility] No Panel InformationOrdered By: Raisa Mc on 01-01-2024 Troponin I High Sensitivity 17 pg/mL 3.0-54.0 [facility] Comment on above: Please Note: New Carolann t Units and Gender Specific Reference Ranges. For more information see Policy Stat Procedure [place] High Sensitivity Troponin (TNIH) and attachments. 17 pg/mL 3.0-54.0 [facility] D-Dimer Quantitative (PE/DVT) 1.83 FEU/ug/m 0.27-0.49 [facility] Comment on above: D-Dimer ELEVATED (>0 .49): Additional studies and clinicalassessments are indicated to conclude diagnosis of:Deep Vein Thrombosis (DVT) or Pulmonary Embolism (PE)CRITICAL VALUE VERIFIED. CALLED TO GARLAND [id number] Maurice Cast.RESULTS READ BACK BY SAME . Estimated Creatinine Clearance Calc 39.76 ml/min [facility] Estimated GFR (MDRD) Amer 50 mL/min >60 [facility] Comment on above: GFR Calc Estimated GFR (MDRD) Non-Af Amer 41 mL/min >60 [facility] Comment on above: Non- GFR Calc 1.83 FEU/ug/m 0.27-0.49 [facility] RBC Auto (Bld) [#/Vol]Ordere d By: Raisa Mc on 01-01-2024 RBC (Bld) [#/Vol] 3.91 10*6/uL 4.2-5.4 [facility] Serum or plasma calcium tai urement (mass/volume)Ordered By: Raisa Mc on 01-01-2024 Calcium [Mass/Vol] 9.1 mg/dL 8.5-10.1 [facility] Serum or plasma creatinine m easurement (mass/volume)Ordered By: Raisa Mc on 01-01-2024 Creatinine [Mass/Vol] 1.38 mg/dL 0.55-1.02 [facility] Comment on above: The validity of the calculated GFR & GFRAA in patients over 70 years has not been determined. Clinical correlation is essential. Serum or plasma urea nitroge n measurement (mass/volume)Ordered By: Raisa Mc on 01-01-2024 Urea nitrogen [Mass/Vol] 28 mg/dL 7-18 [facility] Thin prep Papanicolaou smear with manual screeningOrdered By: Raisa Mc on 01-01-2024 Thin prep Papanicolaou smear with manual screening 5 5-15 [facility] Absolute lymphocyte countOrd ered By: Lizet Linares on 12-31-2023 Lymphocytes Auto (Unsp spec) [#/Vol] 1.71 10*3/uL 0.83-4.51 [facility] Automated lymphocyte count a s percentage of total leukocytesOrdered By: Lizet Linares on 12-31-2023 Lymphocytes/100 WBC Auto (Unsp spec) 21.9 % 19-41 [facility] Basophil percentageOrdered B y: Lizet Linares on 12-31-2023 Basophil percentage 11.2 g/dL 12.0-15.0 [facility] Basophil percentage 480 mg/dL 74-106 [facility] Basophil percentage 134 mmol/L 136-145 [facility] Basophil percentage 4.9 mmol/L 3.5-5.1 [facility] Basophil percentage 101 mmol/L 98-107 [facility] Basophils (Bld) [#/Vol] 7.8 10*3/uL 4.4-11.0 [facility] Basophils (Bld) [#/Vol] 5.7 10*3/uL 2.0-7.7 [facility] Basophils/100 WBC (Bld) 0.4 % 0-[address] [facility] Basophils/100 WBC (Bld) 73.1 % 47-[address] [facility] Basophils/100 WBC (Bld) 3.7 % 0-[address] [facility] Basophils/100 WBC (Bld) 0.0 % 0-[address] [facility] Chloride [Moles/Vol] 101 mmol/L 98-107 [facility] Eosinophils/100 WBC (Bld) 0.0 % 0-5 [facility] Glucose [Mass/Vol] 480 mg/dL 74-106 [facility] Comment on above: Critical Result(s) C alled at: 08:54:01 12/31/2023 by: Dalila Bautista to Gunnar Apodaca RN ([facility]). Results read back by same.Glucose result greater than or equal to 200 mg/dLsuggests DIABETES MELLITUS per A.D.A. criteria. Hemoglobin (Bld) [Mass/Vol] 11.2 g/dL 12.0-15.0 [facility] Monocytes/100 WBC (Bld) 3.7 % 0-[address] [facility] Neutrophils (Bld) [#/Vol] 5.7 10*3/uL 2.0-7.7 [facility] Neutrophils/100 WBC (Bld) 73.1 % 47-70 [facility] Potassium [Moles/Vol] 4.9 mmol/L 3.5-5.1 [facility] Sodium [Moles/Vol] 134 mmol/L 136-145 [facility] WBC (Bld) [#/Vol] 7.8 10*3/uL 4.4-11.0 [facility] Determination of erythrocyte mean corpuscular volume (MCV)Ordered By: Lizet Linares on 12-31-2023 MCV (RBC) [Entitic vol] 90.5 fL 81-[address] [facility] Erythrocyte distribution wid th ratioOrdered By: [facility] Linares on 12-31-2023 Erythrocyte distribution width (RBC) [Ratio] 13.1 % 11.6-14.6 [facility] Erythrocyte distribution wid th standard deviationOrdered By: Lizet Linares on 12-31-2023 Erythrocyte distribution width (RBC) [Entitic vol] 43.3 fL 35.1-43.9 [facility] Hematocrit Auto (Bld) [Volum e fraction]Ordered By: Lizet Linares on 12-31-2023 Hematocrit (Bld) [Volume fraction] 34.4 % 37-47 [facility] Immature granulocytes/100 WB C Auto (Bld)Ordered By: Lizet Linares on 12-31-2023 Immature granulocytes/100 WBC (Bld) 0.900 % 0.0-0.9 [facility] Comment on above: IG% - Immature Granu locytes (promyelocytes, myelocytes and metamyelocytes) > 1% indicates that a LEFT SHIFT is Present. Laboratory - Chemistry and C hemistry - challengeOrdered By: Lizet Linares on 12-31-2023 CO2 [Moles/Vol] 24.0 mmol/L 21.0-32.0 [facility] Urea nitrogen/Creatinine [Mass ratio] 19.6 mg/mg 10-20 [facility] Laboratory - Hematology and Cell countsOrdered By: Hollyhartlandnatasha Linares on 12-31-2023 MCH (RBC) [Entitic mass] 29.5 pg 27.0-32.0 [facility] MCHC (RBC) [Mass/Vol] 32.6 g/dL 32-36 [facility] Nucleated RBC/100 WBC (Bld) [Ratio] 0 % 0-5 [facility] Platelet mean volume (Bld) [Entitic vol] 9.9 fL 6.2-12.0 [facility] Platelets (Bld) [#/Vol] 257 10*3/uL 150-450 [facility] No Panel InformationOrdered By: Lizet Linares on 12-31-2023 Estimated GFR (MDRD) Amer 50 mL/min >60 [facility] Comment on above: GFR Calc Estimated GFR (MDRD) Non-Af Amer 41 mL/min >60 [facility] Comment on above: Non- GFR Calc 29.5 pg 27.0-32.0 [facility] 32.6 g/dL 32-36 [facility] 257 K/mm3 150-450 [facility] 9.9 fl 6.2-12.0 [facility] 0 % 0-5 [facility] 41 mL/min >60 [facility] 50 mL/min >60 [facility] 19.6 RATIO 10-20 [facility] 24.0 mmol/L 21.0-32.0 [facility] RBC Auto (Bld) [#/Vol]Ordere d By: Lizet Linares on 12-31-2023 RBC (Bld) [#/Vol] 3.80 10*6/uL 4.2-5.4 [facility] Serum or plasma calcium tai urement (mass/volume)Ordered By: Lizet Linares on 12-31-2023 Calcium [Mass/Vol] 9.3 mg/dL 8.5-10.1 [facility] Serum or plasma creatinine m easurement (mass/volume)Ordered By: Lizet Linares on 12-31-2023 Creatinine [Mass/Vol] 1.38 mg/dL 0.55-1.02 [facility] Comment on above: The validity of the calculated GFR & GFRAA in patients over 70 years has not been determined. Clinical correlation is essential. Serum or plasma urea nitroge n measurement (mass/volume)Ordered By: Lizet Linares on 12-31-2023 Urea nitrogen [Mass/Vol] 27 mg/dL 7-18 [facility] Thin prep Papanicolaou smear with manual screeningOrdered By: Lizet Linares on 12-31-2023 Thin prep Papanicolaou smear with manual screening 9 5-15 [facility] Bacteria identified Cx Nom ( U)Ordered By: Lizet Linares on 12-29-2023 Culture, urine Proteus mirabilis [facility] Bilirubin Test strip Ql (U)O rdered By: Lizet Linares on 12-29-2023 Bilirubin Ql (U) Negative Negative [facility] Culture, urineOrdered By: Junie Linares on 12-29-2023 Bacteria identified Cx Nom (U) Proteus mirabilis [facility] Ketones Test strip Ql (U)Ord ered By: Lizet Linares on 12-29-2023 Ketones Ql (U) Negative Negative [facility] Nitrite Test strip Ql (U)Ord ered By: Lizet Linares on 12-29-2023 Nitrite Ql (U) Negative Negative [facility] Protein Test strip Ql (U)Ord ered By: Lizet Linares on 12-29-2023 Protein Ql (U) 30 mg/dl Negative [facility] Urine blood detectionOrdered By: Lizet Linares on 12-29-2023 RBC Ql (U) 250 /ul Negative [facility] Urine clarityOrdered By: Bart Linares on 12-29-2023 Clarity (U) Cloudy Clear [facility] Urine color determinationOrd ered By: Lizet Linares on 12-29-2023 Color (U) Yellow Yellow [facility] Urine glucose detectionOrder ed By: Lizet Linares on 12-29-2023 Glucose Ql (U) 1000 mg/dl Normal [facility] Urine leukocyte esterase det ection by dipstickOrdered By: Lizet Linares on 12-29-2023 Leukocyte esterase Test strip Ql (U) 500 /ul Negative [facility] Urine pHOrdered By: Frank Linares on 12-29-2023 pH (U) 6.5 [pH] 5.0 - 8.0 [facility] Urine specific gravity measu rementOrdered By: Lizet Linares on 12-29-2023 Specific gravity (U) [Rel density] 1.005 1.002-1.03 0 [facility] Urine urobilinogen measureme ntOrdered By: Lizet Linares on 12-29-2023 Urobilinogen Ql (U) Normal mg/dl Normal [facility] Absolute lymphocyte countOrd ered By: Hollyjanellnatasha Crossjntal on 12-24-2023 Lymphocytes Auto (Unsp spec) [#/Vol] 2.44 10*3/uL 0.83-4.51 [facility] Automated lymphocyte count a s percentage of total leukocytesOrdered By: Lizet Linares on 12-24-2023 Lymphocytes/100 WBC Auto (Unsp spec) 48.0 % 19-41 [facility] Basophil percentageOrdered B y: Hollyjanellnatasha Crossjntal on 12-24-2023 Basophil percentage 11.2 g/dL 12.0-15.0 [facility] Basophil percentage 215 mg/dL 74-106 [facility] Basophil percentage 136 mmol/L 136-145 [facility] Basophil percentage 4.1 mmol/L 3.5-5.1 [facility] Basophil percentage 105 mmol/L 98-107 [facility] Basophils (Bld) [#/Vol] 5.1 10*3/uL 4.4-11.0 [facility] Basophils (Bld) [#/Vol] 2.2 10*3/uL 2.0-7.7 [facility] Basophils/100 WBC (Bld) 0.6 % 0-[address] [facility] Basophils/100 WBC (Bld) 43.3 % 47-[address] [facility] Basophils/100 WBC (Bld) 6.9 % 0-[address] [facility] Basophils/100 WBC (Bld) 1.0 % 0-[address] [facility] Chloride [Moles/Vol] 105 mmol/L 98-107 [facility] Eosinophils/100 WBC (Bld) 1.0 % 0-5 [facility] Glucose [Mass/Vol] 215 mg/dL 74-106 [facility] Comment on above: Glucose result great er than or equal to 200 mg/dLsuggests DIABETES MELLITUS per A.D.A. criteria. Hemoglobin (Bld) [Mass/Vol] 11.2 g/dL 12.0-15.0 [facility] Monocytes/100 WBC (Bld) 6.9 % 0-[address] [facility] Neutrophils (Bld) [#/Vol] 2.2 10*3/uL 2.0-7.7 [facility] Neutrophils/100 WBC (Bld) 43.3 % 47-70 [facility] Potassium [Moles/Vol] 4.1 mmol/L 3.5-5.1 [facility] Sodium [Moles/Vol] 136 mmol/L 136-145 [facility] WBC (Bld) [#/Vol] 5.1 10*3/uL 4.4-11.0 [facility] Determination of erythrocyte mean corpuscular volume (MCV)Ordered By: Lizet Linares on 12-24-2023 MCV (RBC) [Entitic vol] 91.1 fL 81-[address] [facility] Erythrocyte distribution wid th ratioOrdered By: Hollyhartlandnatasha Linares on 12-24-2023 Erythrocyte distribution width (RBC) [Ratio] 13.7 % 11.6-14.6 [facility] Erythrocyte distribution wid th standard deviationOrdered By: Lizet Linares on 12-24-2023 Erythrocyte distribution width (RBC) [Entitic vol] 46.0 fL 35.1-43.9 [facility] Hematocrit Auto (Bld) [Volum e fraction]Ordered By: Lizet Linares on 12-24-2023 Hematocrit (Bld) [Volume fraction] 33.8 % 37-47 [facility] Immature granulocytes/100 WB C Auto (Bld)Ordered By: Lizet Linares on 12-24-2023 Immature granulocytes/100 WBC (Bld) 0.200 % 0.0-0.9 [facility] Comment on above: IG% - Immature Granu locytes (promyelocytes, myelocytes and metamyelocytes) > 1% indicates that a LEFT SHIFT is Present. Laboratory - Chemistry and C hemistry - challengeOrdered By: Lizet Linares on 12-24-2023 CO2 [Moles/Vol] 26.0 mmol/L 21.0-32.0 [facility] Urea nitrogen/Creatinine [Mass ratio] 20.2 mg/mg 10-20 [facility] Laboratory - Hematology and Cell countsOrdered By: Lizet Linares on 12-24-2023 MCH (RBC) [Entitic mass] 30.2 pg 27.0-32.0 [facility] MCHC (RBC) [Mass/Vol] 33.1 g/dL 32-36 [facility] Nucleated RBC/100 WBC (Bld) [Ratio] 0 % 0-5 [facility] Platelet mean volume (Bld) [Entitic vol] 9.5 fL 6.2-12.0 [facility] Platelets (Bld) [#/Vol] 229 10*3/uL 150-450 [facility] No Panel InformationOrdered By: Lizet Linares on 12-24-2023 Estimated GFR (MDRD) Amer 66 mL/min >60 [facility] Comment on above: GFR Calc Estimated GFR (MDRD) Non-Af Amer 54 mL/min >60 [facility] Comment on above: Non- GFR Calc 30.2 pg 27.0-32.0 [facility] 33.1 g/dL 32-36 [facility] 229 K/mm3 150-450 [facility] 9.5 fl 6.2-12.0 [facility] 0 % 0-5 [facility] 54 mL/min >60 [facility] 66 mL/min >60 [facility] 20.2 RATIO 10-20 [facility] 26.0 mmol/L 21.0-32.0 [facility] RBC Auto (Bld) [#/Vol]Ordere d By: Lizet Linares on 12-24-2023 RBC (Bld) [#/Vol] 3.71 10*6/uL 4.2-5.4 [facility] Serum or plasma calcium tai urement (mass/volume)Ordered By: Lizet Linares on 12-24-2023 Calcium [Mass/Vol] 8.7 mg/dL 8.5-10.1 [facility] Serum or plasma creatinine m easurement (mass/volume)Ordered By: Lizet Linares on 12-24-2023 Creatinine [Mass/Vol] 1.09 mg/dL 0.55-1.02 [facility] Comment on above: The validity of the calculated GFR & GFRAA in patients over 70 years has not been determined. Clinical correlation is essential. Serum or plasma urea nitroge n measurement (mass/volume)Ordered By: sAmitanatasha Crossjntal on 12-24-2023 Urea nitrogen [Mass/Vol] 22 mg/dL 7-18 [facility] Thin prep Papanicolaou smear with manual screeningOrdered By: Juniechristajanellnatasha Linares on 12-24-2023 Thin prep Papanicolaou smear with manual screening 5 5-15 [facility] Absolute lymphocyte countOrd ered By: Hollyjanellnatasha Crossjntal on 12-17-2023 Lymphocytes Auto (Unsp spec) [#/Vol] 2.73 10*3/uL 0.83-4.51 [facility] Automated lymphocyte count a s percentage of total leukocytesOrdered By: Hollyjanellnatasha Linares on 12-17-2023 Lymphocytes/100 WBC Auto (Unsp spec) 35.0 % 19-41 [facility] Basophil percentageOrdered B y: Asmitanatasha Linares on 12-17-2023 Basophil percentage 11.2 g/dL 12.0-15.0 [facility] Basophil percentage 295 mg/dL 74-106 [facility] Basophil percentage 135 mmol/L 136-145 [facility] Basophil percentage 4.1 mmol/L 3.5-5.1 [facility] Basophil percentage 101 mmol/L 98-107 [facility] Basophils (Bld) [#/Vol] 7.8 10*3/uL 4.4-11.0 [facility] Basophils (Bld) [#/Vol] 4.4 10*3/uL 2.0-7.7 [facility] Basophils/100 WBC (Bld) 0.6 % 0-[address] [facility] Basophils/100 WBC (Bld) 56.1 % 47-[address] [facility] Basophils/100 WBC (Bld) 6.9 % 0-[address] [facility] Basophils/100 WBC (Bld) 1.0 % 0-[address] [facility] Chloride [Moles/Vol] 101 mmol/L 98-107 [facility] Eosinophils/100 WBC (Bld) 1.0 % 0-5 [facility] Glucose [Mass/Vol] 295 mg/dL 74-106 [facility] Comment on above: Glucose result great er than or equal to 200 mg/dLsuggests DIABETES MELLITUS per A.D.A. criteria. Hemoglobin (Bld) [Mass/Vol] 11.2 g/dL 12.0-15.0 [facility] Monocytes/100 WBC (Bld) 6.9 % 0-[address] [facility] Neutrophils (Bld) [#/Vol] 4.4 10*3/uL 2.0-7.7 [facility] Neutrophils/100 WBC (Bld) 56.1 % 47-70 [facility] Potassium [Moles/Vol] 4.1 mmol/L 3.5-5.1 [facility] Sodium [Moles/Vol] 135 mmol/L 136-145 [facility] WBC (Bld) [#/Vol] 7.8 10*3/uL 4.4-11.0 [facility] Determination of erythrocyte mean corpuscular volume (MCV)Ordered By: Lizet Linares on 12-17-2023 MCV (RBC) [Entitic vol] 90.9 fL 81-[address] [facility] Erythrocyte distribution wid th ratioOrdered By: christahartlandnatasha Crosstal on 12-17-2023 Erythrocyte distribution width (RBC) [Ratio] 14.0 % 11.6-14.6 [facility] Erythrocyte distribution wid th standard deviationOrdered By: Hollyhartlandnatasha Crosstal on 12-17-2023 Erythrocyte distribution width (RBC) [Entitic vol] 46.7 fL 35.1-43.9 [facility] Hematocrit Auto (Bld) [Volum e fraction]Ordered By: Lizet Linares on 12-17-2023 Hematocrit (Bld) [Volume fraction] 34.1 % 37-47 [facility] Immature granulocytes/100 WB C Auto (Bld)Ordered By: Lizet Linares on 12-17-2023 Immature granulocytes/100 WBC (Bld) 0.400 % 0.0-0.9 [facility] Comment on above: IG% - Immature Granu locytes (promyelocytes, myelocytes and metamyelocytes) > 1% indicates that a LEFT SHIFT is Present. Laboratory - Chemistry and C hemistry - challengeOrdered By: Lizet Linares on 12-17-2023 CO2 [Moles/Vol] 28.0 mmol/L 21.0-32.0 [facility] Urea nitrogen/Creatinine [Mass ratio] 22.7 mg/mg 10-20 [facility] Laboratory - Hematology and Cell countsOrdered By: Lizet Linares on 12-17-2023 MCH (RBC) [Entitic mass] 29.9 pg 27.0-32.0 [facility] MCHC (RBC) [Mass/Vol] 32.8 g/dL 32-36 [facility] Nucleated RBC/100 WBC (Bld) [Ratio] 0 % 0-5 [facility] Platelet mean volume (Bld) [Entitic vol] 9.5 fL 6.2-12.0 [facility] Platelets (Bld) [#/Vol] 323 10*3/uL 150-450 [facility] No Panel InformationOrdered By: Lizet Linares on 12-17-2023 Estimated GFR (MDRD) Amer 55 mL/min >60 [facility] Comment on above: GFR Calc Estimated GFR (MDRD) Non-Af Amer 45 mL/min >60 [facility] Comment on above: Non- GFR Calc 29.9 pg 27.0-32.0 [facility] 32.8 g/dL 32-36 [facility] 323 K/mm3 150-450 [facility] 9.5 fl 6.2-12.0 [facility] 0 % 0-5 [facility] 45 mL/min >60 [facility] 55 mL/min >60 [facility] 22.7 RATIO - [facility] 28.0 mmol/L 21.0-32.0 [facility] RBC Auto (Bld) [#/Vol]Ordere d By: Lizet Linares on 12-17-2023 RBC (Bld) [#/Vol] 3.75 10*6/uL 4.2-5.4 [facility] Serum or plasma calcium tai urement (mass/volume)Ordered By: Lizet Linares on 12-17-2023 Calcium [Mass/Vol] 8.9 mg/dL 8.5-10.1 [facility] Serum or plasma creatinine m easurement (mass/volume)Ordered By: Lizet Tayjntal on 12-17-2023 Creatinine [Mass/Vol] 1.28 mg/dL 0.55-1.02 [facility] Comment on above: The validity of the calculated GFR & GFRAA in patients over 70 years has not been determined. Clinical correlation is essential. Serum or plasma urea nitroge n measurement (mass/volume)Ordered By: Lizet Linares on 12-17-2023 Urea nitrogen [Mass/Vol] 29 mg/dL 7-18 [facility] Thin prep Papanicolaou smear with manual screeningOrdered By: [facility] Linares on 12-17-2023 Thin prep Papanicolaou smear with manual screening 6 5-15 [facility] Absolute lymphocyte countOrd ered By: christahartlandnatasha Crossjntal on 12-10-2023 Lymphocytes Auto (Unsp spec) [#/Vol] 2.72 10*3/uL 0.83-4.51 [facility] Automated lymphocyte count a s percentage of total leukocytesOrdered By: Juniemarcelle Linares on 12-10-2023 Lymphocytes/100 WBC Auto (Unsp spec) 45.2 % 19-41 [facility] Basophil percentageOrdered B y: Asmitanatasha Crossjntal on 12-10-2023 Basophil percentage 10.1 g/dL 12.0-15.0 [facility] Basophil percentage 352 mg/dL 74-106 [facility] Basophil percentage 135 mmol/L 136-145 [facility] Basophil percentage 4.3 mmol/L 3.5-5.1 [facility] Basophil percentage 103 mmol/L 98-107 [facility] Basophils (Bld) [#/Vol] 6.0 10*3/uL 4.4-11.0 [facility] Basophils (Bld) [#/Vol] 2.8 10*3/uL 2.0-7.7 [facility] Basophils/100 WBC (Bld) 0.8 % 0-[address] [facility] Basophils/100 WBC (Bld) 46.4 % 47-70 [facility] Basophils/100 WBC (Bld) 6.3 % 0-[address] [facility] Basophils/100 WBC (Bld) 0.5 % 0-5 [facility] Chloride [Moles/Vol] 103 mmol/L 98-107 [facility] Eosinophils/100 WBC (Bld) 0.5 % 0-5 [facility] Glucose [Mass/Vol] 352 mg/dL 74-106 [facility] Comment on above: Glucose result great er than or equal to 200 mg/dLsuggests DIABETES MELLITUS per A.D.A. criteria. Hemoglobin (Bld) [Mass/Vol] 10.1 g/dL 12.0-15.0 [facility] Monocytes/100 WBC (Bld) 6.3 % 0-[address] [facility] Neutrophils (Bld) [#/Vol] 2.8 10*3/uL 2.0-7.7 [facility] Neutrophils/100 WBC (Bld) 46.4 % 47-70 [facility] Potassium [Moles/Vol] 4.3 mmol/L 3.5-5.1 [facility] Sodium [Moles/Vol] 135 mmol/L 136-145 [facility] WBC (Bld) [#/Vol] 6.0 10*3/uL 4.4-11.0 [facility] Determination of erythrocyte mean corpuscular volume (MCV)Ordered By: Lizet Linares on 12-10-2023 MCV (RBC) [Entitic vol] 91.0 fL 81-99 [facility] Erythrocyte distribution wid th ratioOrdered By: Lizet Linares on 12-10-2023 Erythrocyte distribution width (RBC) [Ratio] 13.6 % 11.6-14.6 [facility] Erythrocyte distribution wid th standard deviationOrdered By: Lizet Linares on 12-10-2023 Erythrocyte distribution width (RBC) [Entitic vol] 45.5 fL 35.1-43.9 [facility] Hematocrit Auto (Bld) [Volum e fraction]Ordered By: Lizet Linares on 12-10-2023 Hematocrit (Bld) [Volume fraction] 31.4 % 37-47 [facility] Immature granulocytes/100 WB C Auto (Bld)Ordered By: Lizet Linares on 12-10-2023 Immature granulocytes/100 WBC (Bld) 0.800 % 0.0-0.9 [facility] Comment on above: IG% - Immature Granu locytes (promyelocytes, myelocytes and metamyelocytes) > 1% indicates that a LEFT SHIFT is Present. Laboratory - Chemistry and C hemistry - challengeOrdered By: Lizet Linares on 12-10-2023 CO2 [Moles/Vol] 26.0 mmol/L 21.0-32.0 [facility] Urea nitrogen/Creatinine [Mass ratio] 24.2 mg/mg 10-20 [facility] Laboratory - Hematology and Cell countsOrdered By: Lizet Linares on 12-10-2023 MCH (RBC) [Entitic mass] 29.3 pg 27.0-32.0 [facility] MCHC (RBC) [Mass/Vol] 32.2 g/dL 32-36 [facility] Nucleated RBC/100 WBC (Bld) [Ratio] 0 % 0-5 [facility] Platelet mean volume (Bld) [Entitic vol] 10.1 fL 6.2-12.0 [facility] Platelets (Bld) [#/Vol] 268 10*3/uL 150-450 [facility] No Panel InformationOrdered By: Lizet Linares on 12-10-2023 Estimated GFR (MDRD) Amer 53 mL/min >60 [facility] Comment on above: GFR Calc Estimated GFR (MDRD) Non-Af Amer 44 mL/min >60 [facility] Comment on above: Non- GFR Calc 29.3 pg 27.0-32.0 [facility] 32.2 g/dL 32-36 [facility] 268 K/mm3 150-450 [facility] 10.1 fl 6.2-12.0 [facility] 0 % 0-5 [facility] 44 mL/min >60 [facility] 53 mL/min >60 [facility] 24.2 RATIO 08-13 [facility] 26.0 mmol/L 21.0-32.0 [facility] RBC Auto (Bld) [#/Vol]Ordere d By: Lizet Linares on 12-10-2023 RBC (Bld) [#/Vol] 3.45 10*6/uL 4.2-5.4 [facility] Serum or plasma calcium tai urement (mass/volume)Ordered By: Lizet Linares on 12-10-2023 Calcium [Mass/Vol] 8.5 mg/dL 8.5-10.1 [facility] Serum or plasma creatinine m easurement (mass/volume)Ordered By: Lizet Linaers on 12-10-2023 Creatinine [Mass/Vol] 1.32 mg/dL 0.55-1.02 [facility] Comment on above: The validity of the calculated GFR & GFRAA in patients over 70 years has not been determined. Clinical correlation is essential. Serum or plasma urea nitroge n measurement (mass/volume)Ordered By: Lizet Linares on 12-10-2023 Urea nitrogen [Mass/Vol] 32 mg/dL 7-18 [facility] Thin prep Papanicolaou smear with manual screeningOrdered By: Lizet Linares on 12-10-2023 Thin prep Papanicolaou smear with manual screening 6 5-15 [facility] Absolute lymphocyte countOrd ered By: Lizet Linares on 11-26-2023 Lymphocytes Auto (Unsp spec) [#/Vol] 2.84 10*3/uL 0.83-4.51 [facility] Automated lymphocyte count a s percentage of total leukocytesOrdered By: Lizet Linares on 11-26-2023 Lymphocytes/100 WBC Auto (Unsp spec) 40.7 % 19-41 [facility] Basophil percentageOrdered B y: Lizet Linares on 11-26-2023 Basophil percentage 10.8 g/dL 12.0-15.0 [facility] Basophil percentage 230 mg/dL 74-106 [facility] Basophil percentage 7.1 g/dL 6.4-8.2 [facility] Basophil percentage 0.60 mg/dL 0.20-1.00 [facility] Basophil percentage 244 mg/dL <200 [facility] Basophil percentage 353 mg/dL <199 [facility] Basophil percentage 135 mmol/L 136-145 [facility] Basophil percentage 4.2 mmol/L 3.5-5.1 [facility] Basophil percentage 102 mmol/L 98-107 [facility] Basophils (Bld) [#/Vol] 7.0 10*3/uL 4.4-11.0 [facility] Basophils (Bld) [#/Vol] 3.5 10*3/uL 2.0-7.7 [facility] Basophils/100 WBC (Bld) 1.0 % 0-[address] [facility] Basophils/100 WBC (Bld) 50.3 % 47-[address] [facility] Basophils/100 WBC (Bld) 5.3 % 0-[address] [facility] Basophils/100 WBC (Bld) 2.0 % 0-[address] [facility] Bilirubin [Mass/Vol] 0.60 mg/dL 0.20-1.00 [facility] Comment on above: For patients on eltr ombopag therapy, use of Dimension [place] TBIL is not recommended. Chloride [Moles/Vol] 102 mmol/L 98-107 [facility] Cholesterol [Mass/Vol] 244 mg/dL <200 [facility] Comment on above: <200 mg/dL Desirable 200-240 mg/dL Borderline >240 mg/dL High Risk Eosinophils/100 WBC (Bld) 2.0 % 0-5 [facility] Glucose [Mass/Vol] 230 mg/dL 74-106 [facility] Comment on above: Glucose result great er than or equal to 200 mg/dLsuggests DIABETES MELLITUS per A.D.A. criteria. Hemoglobin (Bld) [Mass/Vol] 10.8 g/dL 12.0-15.0 [facility] Monocytes/100 WBC (Bld) 5.3 % 0-[address] [facility] Neutrophils (Bld) [#/Vol] 3.5 10*3/uL 2.0-7.7 [facility] Neutrophils/100 WBC (Bld) 50.3 % 47-70 [facility] Potassium [Moles/Vol] 4.2 mmol/L 3.5-5.1 [facility] Protein [Mass/Vol] 7.1 g/dL 6.4-8.2 [facility] Sodium [Moles/Vol] 135 mmol/L 136-145 [facility] Triglyceride [Mass/Vol] 353 mg/dL <[address] [facility] Comment on above: The drugs N-Acetylcy [...] vol] 94.2 fL 81-[address] [facility] Erythrocyte distribution wid th ratioOrdered By: [facility] Taytal on 11-26-2023 Erythrocyte distribution width (RBC) [Ratio] 14.4 % 11.6-14.6 [facility] Erythrocyte distribution wid th standard deviationOrdered By: [facility] on [facility]-2023 Erythrocyte distribution width (RBC) [Entitic vol] 49.4 fL 35.1-43.9 [facility] Hematocrit Auto (Bld) [Volum e fraction]Ordered By: [facility] Taytal on 11-26-2023 Hematocrit (Bld) [Volume fraction] 33.9 % 37-47 [facility] Immature granulocytes/100 WB C Auto (Bld)Ordered By: [facility] on 11-26-2023 Immature granulocytes/100 WBC (Bld) 0.700 % 0.0-0.9 [facility] Comment on above: IG% - Immature Granu locytes (promyelocytes, myelocytes and metamyelocytes) > 1% indicates that a LEFT SHIFT is Present. Laboratory - Chemistry and C hemistry - challengeOrdered By: [facility] Crosstal on 11-26-2023 Albumin/Globulin [Mass ratio] 0.9 {ratio} 0.9-2.4 [facility] ALP [Catalytic activity/Vol] 62 U/L 45-117 [facility] ALT [Catalytic activity/Vol] 29 U/L 13-56 [facility] Cholesterol in HDL (Body fld) [Mass/Vol] 23 mg/dL >40 [facility] Comment on above: The drugs N-Acetylcy steine and Metamizole may falsely depress this assay. Reference Range HDL <40 mg/dL Low HDL Cholesterol HDL >or= 60 mg/dL High HDL Cholesterol Cholesterol in LDL (Body fld) [Moles/Vol] 150 mg/dL 0-130 [facility] Cholesterol in VLDL Calc [Moles/Vol] 71 mg/dL 5-40 [facility] CO2 [Moles/Vol] 28.0 mmol/L 21.0-32.0 [facility] Globulin (S) [Mass/Vol] 3.8 g/dL 2.2-4.[address] [facility] Urea nitrogen/Creatinine [Mass ratio] 11.7 mg/mg 10-20 [facility] Laboratory - Hematology and Cell countsOrdered By: Lizet Linares on 11-26-2023 MCH (RBC) [Entitic mass] 30.0 pg 27.0-32.0 [facility] MCHC (RBC) [Mass/Vol] 31.9 g/dL 32-36 [facility] Nucleated RBC/100 WBC (Bld) [Ratio] 0 % 0-5 [facility] Platelets (Bld) [#/Vol] 264 10*3/uL 150-450 [facility] No Panel InformationOrdered By: Lizet Linares on 11-26-2023 Estimated GFR (MDRD) Amer 39 mL/min >60 [facility] Comment on above: GFR Calc Estimated GFR (MDRD) Non-Af Amer 32 mL/min >60 [facility] Comment on above: Non- GFR Calc 30.0 pg 27.0-32.0 [facility] 31.9 g/dL 32-36 [facility] 264 K/mm3 150-450 [facility] 0 % 0-5 [facility] 32 mL/min >60 [facility] 39 mL/min >60 [facility] 11.7 RATIO 10-20 [facility] 3.8 g/dL 2.2-4.2 [facility] 0.9 RATIO 0.9-2.4 [facility] 62 U/L 45-117 [facility] 29 U/L 13-56 [facility] 28.0 mmol/L 21.0-32.0 [facility] Platelet mean volume Fercho-Ec ker (Bld) [Entitic vol]Ordered By: Lizet Linares on 11-26-2023 Platelet mean volume (Bld) [Entitic vol] 9.9 fL 6.2-12.0 [facility] RBC Auto (Bld) [#/Vol]Ordere d By: Lizet Linares on 11-26-2023 RBC (Bld) [#/Vol] 3.60 10*6/uL 4.2-5.4 [facility] Serum or plasma calcium tai urement (mass/volume)Ordered By: Lziet Linares on 11-26-2023 Calcium [Mass/Vol] 9.1 mg/dL 8.5-10.1 [facility] Serum or plasma creatinine m easurement (mass/volume)Ordered By: Lizte Linares on 11-26-2023 Creatinine [Mass/Vol] 1.71 mg/dL 0.55-1.02 [facility] Comment on above: The validity of the calculated GFR & GFRAA in patients over 70 years has not been determined. Clinical correlation is essential. Serum or plasma thyroid stim ulating hormone (TSH) measurement (units/volume)Ordered By: Lizet Linares on 11-26-2023 TSH Qn 99.40 uIU/mL 0.358-3.74 [facility] Serum or plasma urea nitroge n measurement (mass/volume)Ordered By: Lizet Linares on 11-26-2023 Urea nitrogen [Mass/Vol] 20 mg/dL 7-18 [facility] Thin prep Papanicolaou smear with manual screeningOrdered By: Lizet Linares on 11-26-2023 Thin prep Papanicolaou smear with manual screening 3.3 g/dL 3.2-5.0 [facility] Thin prep Papanicolaou smear with manual screening 33 U/L 15-37 [facility] Thin prep Papanicolaou smear with manual screening 5 5-15 [facility] Whole blood hemoglobin A1c/t otal hemoglobin ratio (mass fraction)Ordered By: Lizet Linares on 11-26-2023 HbA1c (Bld) [Mass fraction] 13.1 % 3.8-5.6 [facility] Comment on above: Normal < 5.7 % Predi abetic 5.7 - 6.4 % Diabetic >or= 6.5 % Please note range changes. COVID-19 virus antigen assay Ordered By: Paresh Hernandez on 11-24-2023 SARS-CoV-2 (COVID-19) Ag IA.rapid Ql (Resp) [facility] Thin prep Papanicolaou smear with manual screeningOrdered By: Paresh Hernandez on 11-24-2023 Thin prep Papanicolaou smear with manual screening 128 mg/dL 74-106 [facility] Comment on above: MANAGEMENT OF PATIEN T CARE PER NURSING PROTOCOL Basophil percentageOrdered B y: Paresh Hernandez on 11-23-2023 Basophil percentage 139 mg/dL 74-106 [facility] Basophil percentage 136 mmol/L 136-145 [facility] Basophil percentage 4.4 mmol/L 3.5-5.1 [facility] Basophil percentage 106 mmol/L 98-107 [facility] Chloride [Moles/Vol] 106 mmol/L 98-107 [facility] Glucose [Mass/Vol] 139 mg/dL 74-106 [facility] Comment on above: Fasting Glucose resu lt greater than or equal to 126 mg/dL suggests DIABETES MELLITUS per A.D.A. criteria. Potassium [Moles/Vol] 4.4 mmol/L 3.5-5.1 [facility] Sodium [Moles/Vol] 136 mmol/L 136-145 [facility] Laboratory - Chemistry and C hemistry - challengeOrdered By: Paresh Hernandez on 11-23-2023 CO2 [Moles/Vol] 25.0 mmol/L 21.0-32.0 [facility] Urea nitrogen/Creatinine [Mass ratio] 8.1 mg/mg 10- [facility] No Panel InformationOrdered By: Paresh Hernandez on 11-23-2023 Estimated Creatinine Clearance Calc 33.99 ml/min [facility] Estimated GFR (MDRD) Amer 39 mL/min >60 [facility] Comment on above: GFR Calc Estimated GFR (MDRD) Non-Af Amer 32 mL/min >60 [facility] Comment on above: Non- GFR Calc 32 mL/min >60 [facility] 39 mL/min >60 [facility] 33.99 ml/min [facility] 8.1 RATIO 10-20 [facility] 25.0 mmol/L 21.0-32.0 [facility] Serum or plasma calcium tai urement (mass/volume)Ordered By: Paresh Hernandez on 11-23-2023 Calcium [Mass/Vol] 9.4 mg/dL 8.5-10.1 [facility] Serum or plasma creatinine m easurement (mass/volume)Ordered By: Paresh Hernandez on 11-23-2023 Creatinine [Mass/Vol] 1.72 mg/dL 0.55-1.02 [facility] Comment on above: The validity of the calculated GFR & GFRAA in patients over 70 years has not been determined. Clinical correlation is essential. Serum or plasma urea nitroge n measurement (mass/volume)Ordered By: Paresh Hernandez on 11-23-2023 Urea nitrogen [Mass/Vol] 14 mg/dL 7-18 [facility] Thin prep Papanicolaou smear with manual screeningOrdered By: Paresh Hernandez on 11-23-2023 Thin prep Papanicolaou smear with manual screening 5 5-15 [facility] Absolute lymphocyte countOrd ered By: John Shaw on 11-22-2023 Lymphocytes Auto (Unsp spec) [#/Vol] 2.87 10*3/uL 0.83-4.51 [facility] Automated lymphocyte count a s percentage of total leukocytesOrdered By: John Shaw on 11-22-2023 Lymphocytes/100 WBC Auto (Unsp spec) 41.6 % 19-41 [facility] Basophil percentageOrdered B y: John Shaw on 11-22-2023 Basophil percentage 11.0 g/dL 12.0-15.0 [facility] Basophils (Bld) [#/Vol] 6.9 10*3/uL 4.4-11.0 [facility] Basophils (Bld) [#/Vol] 3.6 10*3/uL 2.0-7.7 [facility] Basophils/100 WBC (Bld) 0.6 % 0-[address] [facility] Basophils/100 WBC (Bld) 51.4 % 47-[address] [facility] Basophils/100 WBC (Bld) 4.1 % 0-[address] [facility] Basophils/100 WBC (Bld) 1.9 % 0-[address] [facility] Eosinophils/100 WBC (Bld) 1.9 % 0-5 [facility] Hemoglobin (Bld) [Mass/Vol] 11.0 g/dL 12.0-15.0 [facility] Monocytes/100 WBC (Bld) 4.1 % 0-[address] [facility] Neutrophils (Bld) [#/Vol] 3.6 10*3/uL 2.0-7.7 [facility] Neutrophils/100 WBC (Bld) 51.4 % 47-70 [facility] WBC (Bld) [#/Vol] 6.9 10*3/uL 4.4-11.0 [facility] Determination of erythrocyte mean corpuscular volume (MCV)Ordered By: John Shaw on 11-22-2023 MCV (RBC) [Entitic vol] 91.4 fL 81-99 [facility] Erythrocyte distribution wid th ratioOrdered By: John Shaw on 11-22-2023 Erythrocyte distribution width (RBC) [Ratio] 14.6 % 11.6-14.6 [facility] Erythrocyte distribution wid th standard deviationOrdered By: John Shaw on 11-22-2023 Erythrocyte distribution width (RBC) [Entitic vol] 48.6 fL 35.1-43.9 [facility] Hematocrit Auto (Bld) [Volum e fraction]Ordered By: John Shaw on 11-22-2023 Hematocrit (Bld) [Volume fraction] 33.8 % 37-47 [facility] Immature granulocytes/100 WB C Auto (Bld)Ordered By: John Shaw on 11-22-2023 Immature granulocytes/100 WBC (Bld) 0.400 % 0.0-0.9 [facility] Comment on above: IG% - Immature Granu locytes (promyelocytes, myelocytes and metamyelocytes) > 1% indicates that a LEFT SHIFT is Present. Laboratory - Hematology and Cell countsOrdered By: John Shaw on 11-22-2023 MCH (RBC) [Entitic mass] 29.7 pg 27.0-32.0 [facility] MCHC (RBC) [Mass/Vol] 32.5 g/dL 32-36 [facility] Nucleated RBC/100 WBC (Bld) [Ratio] 0 % 0-5 [facility] Platelets (Bld) [#/Vol] 260 10*3/uL 150-450 [facility] No Panel InformationOrdered By: John Shaw on 11-22-2023 29.7 pg 27.0-32.0 [facility] 32.5 g/dL 32-36 [facility] 260 K/mm3 150-450 [facility] 0 % 0-5 [facility] Platelet mean volume Fercho-Ec ker (Bld) [Entitic vol]Ordered By: John Shaw on 11-22-2023 Platelet mean volume (Bld) [Entitic vol] 10.2 fL 6.2-12.0 [facility] RBC Auto (Bld) [#/Vol]Ordere d By: John Shaw on 11-22-2023 RBC (Bld) [#/Vol] 3.70 10*6/uL 4.2-5.4 [facility] Bacteria identified Cx Nom ( U)Ordered By: Jhon Shaw on 11-20-2023 Culture, urine Enterococcus faecalis [facility] Basophil percentageOrdered B y: John Shaw on 11-20-2023 Basophil percentage 2.3 mg/dL 2.5-4.9 [facility] Culture, urineOrdered By: Albert Shaw on 11-20-2023 Bacteria identified Cx Nom (U) Enterococcus faecalis [facility] Bacteria identified Cx Nom (U) Enterococcus faecalis [facility] Laboratory - Chemistry and C hemistry - challengeOrdered By: John Shaw on 11-20-2023 Magnesium [Mass/Vol] 2.1 mg/dL 1.6-2.6 [facility] No Panel InformationOrdered By: John Shaw on 11-20-2023 2.1 mg/dL 1.6-2.6 [facility] Absolute lymphocyte countOrd ered By: ED PROVIDER on 11-19-2023 Lymphocytes Auto (Unsp spec) [#/Vol] 4.21 10*3/uL 0.83-4.51 [facility] Automated lymphocyte count a s percentage of total leukocytesOrdered By: ED PROVIDER on 11-19-2023 Lymphocytes/100 WBC Auto (Unsp spec) 35.7 % 19-41 [facility] Basophil percentageOrdered B y: John Shaw on 11-19-2023 Basophil percentage 7.3 g/dL 6.4-8.2 [facility] Basophil percentage 0.50 mg/dL 0.20-1.00 [facility] Bilirubin [Mass/Vol] 0.50 mg/dL 0.20-1.00 [facility] Comment on above: For patients on eltr ombopag therapy, use of Dimension [place] TBIL is not recommended. Protein [Mass/Vol] 7.3 g/dL 6.4-8.2 [facility] Basophil percentageOrdered B y: Zack Danielsne on 11-19-2023 Basophil percentage 10-25 SEEN /hpf 0-5 [facility] Bilirubin [Mass/Vol] 0.60 mg/dL 0.20-1.00 [facility] Comment on above: For patients on eltr ombopag therapy, use of [employer]ension [place] TBIL is not recommended. Protein [Mass/Vol] 8.5 g/dL 6.4-8.2 [facility] Basophil percentageOrdered B y: ED PROVIDER on 11-19-2023 Basophils/100 WBC (Bld) 0.7 % 0-1 [facility] Chloride [Moles/Vol] 92 mmol/L 98-107 [facility] Eosinophils/100 WBC (Bld) 0.4 % 0-5 [facility] Glucose [Mass/Vol] 484 mg/dL 74-106 [facility] Comment on above: Critical Result(s) C alled at: 09:01:13 11/19/2023 by: Shonda Segal. Results read back by same.Glucose result greater than or equal to 200 mg/dLsuggests DIABETES MELLITUS per A.D.A. criteria. Hemoglobin (Bld) [Mass/Vol] 13.7 g/dL 12.0-15.0 [facility] Monocytes/100 WBC (Bld) 3.3 % 0-10 [facility] Neutrophils (Bld) [#/Vol] 7.0 10*3/uL 2.0-7.7 [facility] Neutrophils/100 WBC (Bld) 59.6 % 47-70 [facility] Potassium [Moles/Vol] 3.4 mmol/L 3.5-5.1 [facility] Comment on above: Slight Hemolysis, Re sult may be falsely increased. Sodium [Moles/Vol] 127 mmol/L 136-145 [facility] WBC (Bld) [#/Vol] 11.8 10*3/uL 4.4-11.0 [facility] Bilirubin Test strip Ql (U)O rdered By: Zack Choi on 11-19-2023 Bilirubin Ql (U) Negative Negative [facility] Determination of erythrocyte mean corpuscular volume (MCV)Ordered By: ED PROVIDER on 11-19-2023 MCV (RBC) [Entitic vol] 87.8 fL 81-[address] [facility] Direct bilirubinOrdered By: Zack Choi on 11-19-2023 Bilirubin.direct [Mass/Vol] 0.16 mg/dL 0.00-0.30 [facility] Erythrocyte distribution wid th ratioOrdered By: ED PROVIDER on 11-19-2023 Erythrocyte distribution width (RBC) [Ratio] 13.5 % 11.6-14.6 [facility] Erythrocyte distribution wid th standard deviationOrdered By: ED PROVIDER on 11-19-2023 Erythrocyte distribution width (RBC) [Entitic vol] 43.6 fL 35.1-43.9 [facility] Hematocrit Auto (Bld) [Volum e fraction]Ordered By: ED PROVIDER on 11-19-2023 Hematocrit (Bld) [Volume fraction] 40.2 % 37-47 [facility] Immature granulocytes/100 WB C Auto (Bld)Ordered By: ED PROVIDER on 11-19-2023 Immature granulocytes/100 WBC (Bld) 0.300 % 0.0-0.9 [facility] Comment on above: IG% - Immature Granu locytes (promyelocytes, myelocytes and metamyelocytes) > 1% indicates that a LEFT SHIFT is Present. Ketones Test strip Ql (U)Ord ered By: Zack Choi on 11-19-2023 Ketones Ql (U) Negative Negative [facility] Laboratory - Chemistry and C hemistry - challengeOrdered By: John Shaw on 11-19-2023 Albumin/Globulin [Mass ratio] 0.9 {ratio} 0.9-2.4 [facility] ALP [Catalytic activity/Vol] 60 U/L 45-117 [facility] ALT [Catalytic activity/Vol] 27 U/L [facility] Globulin (S) [Mass/Vol] 3.9 g/dL 2.2-4.[address] [facility] Laboratory - Chemistry and C hemistry - challengeOrdered By: Zack Choi on 11-19-2023 ALP [Catalytic activity/Vol] 73 U/L 45-117 [facility] ALT [Catalytic activity/Vol] 33 U/L [facility] Globulin (S) [Mass/Vol] 4.6 g/dL 2.2-4.[address] [facility] Lipase [Catalytic activity/Vol] 39 U/L [facility] Comment on above: Please note:LIPASE r evised reference range effective 23. New Lipase methodology. Expected to produce lower values than the previous assay method. NEW Reference Range: 13 - 75 U/L Laboratory - Chemistry and C hemistry - challengeOrdered By: ED PROVIDER on 11-19-2023 CO2 [Moles/Vol] 24.0 mmol/L 21.0-32.0 [facility] Urea nitrogen/Creatinine [Mass ratio] 9.5 mg/mg 10-20 [facility] Laboratory - Hematology and Cell countsOrdered By: ED PROVIDER on 11-19-2023 MCH (RBC) [Entitic mass] 29.9 pg 27.0-32.0 [facility] MCHC (RBC) [Mass/Vol] 34.1 g/dL 32-36 [facility] Nucleated RBC/100 WBC (Bld) [Ratio] 0 % 0-5 [facility] Platelets (Bld) [#/Vol] 306 10*3/uL 150-450 [facility] Mucus LM Ql (Urine sed)Order ed By: Zack Choi on 11-19-2023 Mucus Ql (Urine sed) 0 SEEN /hpf [facility] Nitrite Test strip Ql (U)Ord ered By: Zack Choi on 11-19-2023 Nitrite Ql (U) Negative Negative [facility] No Panel InformationOrdered By: John Shaw on 11-19-2023 3.9 g/dL 2.2-4.2 [facility] 0.9 RATIO 0.9-2.4 [facility] 60 U/L 45-117 [facility] 27 U/L 13-56 [facility] No Panel InformationOrdered By: Zack Choi on 11-19-2023 Urine RBC 0-5 SEEN /hpf 0-5 [facility] 0-5 SEEN /hpf 0-5 [facility] 39 U/L 13-75 [facility] No Panel InformationOrdered By: ED PROVIDER on 11-19-2023 Estimated Creatinine Clearance Calc 34.64 ml/min [facility] Estimated GFR (MDRD) Amer 40 mL/min >60 [facility] Comment on above: GFR Calc Estimated GFR (MDRD) Non-Af Amer 33 mL/min >60 [facility] Comment on above: Non- GFR Calc Platelet mean volume Fercho-Ec ker (Bld) [Entitic vol]Ordered By: ED PROVIDER on 11-19-2023 Platelet mean volume (Bld) [Entitic vol] 10.9 fL 6.2-12.0 [facility] Protein Test strip Ql (U)Ord ered By: Zack Choi on 11-19-2023 Protein Ql (U) 30 mg/dl Negative [facility] RBC Auto (Bld) [#/Vol]Ordere d By: ED PROVIDER on 11-19-2023 RBC (Bld) [#/Vol] 4.58 10*6/uL 4.2-5.4 [facility] Serum or plasma acetone tai urement (mass/volume)Ordered By: ED PROVIDER on 11-19-2023 Acetone [Mass/Vol] Negative NEG [facility] Serum or plasma calcium tai urement (mass/volume)Ordered By: ED PROVIDER on 11-19-2023 Calcium [Mass/Vol] 9.6 mg/dL 8.5-10.1 [facility] Serum or plasma creatinine m easurement (mass/volume)Ordered By: ED PROVIDER on 11-19-2023 Creatinine [Mass/Vol] 1.68 mg/dL 0.55-1.02 [facility] Comment on above: The validity of the calculated GFR & GFRAA in patients over 70 years has not been determined. Clinical correlation is essential. Serum or plasma urea nitroge n measurement (mass/volume)Ordered By: ED PROVIDER on 11-19-2023 Urea nitrogen [Mass/Vol] 16 mg/dL 7-18 [facility] Squamous epithelial cells de tection in urine sediment by light microscopyOrdered By: Zack Choi on 11-19-2023 Epithelial cells.squamous LM Ql (Urine sed) 10-25 SEEN /hpf 5-10 [facility] Thin prep Papanicolaou smear with manual screeningOrdered By: John Shaw on 11-19-2023 Thin prep Papanicolaou smear with manual screening 3.4 g/dL 3.2-5.0 [facility] Thin prep Papanicolaou smear with manual screening 24 U/L 15-37 [facility] Thin prep Papanicolaou smear with manual screeningOrdered By: Zack Choi on 11-19-2023 Thin prep Papanicolaou smear with manual screening 356 mg/dL 74-106 [facility] Comment on above: MANAGEMENT OF PATIEN T CARE PER NURSING PROTOCOL Thin prep Papanicolaou smear with manual screening 3.9 g/dL 3.2-5.0 [facility] Thin prep Papanicolaou smear with manual screening 30 U/L 15-37 [facility] Comment on above: Slight Hemolysis, Re sult may be falsely increased. Thin prep Papanicolaou smear with manual screeningOrdered By: ED PROVIDER on 11-19-2023 Thin prep Papanicolaou smear with manual screening 11 5-15 [facility] Urine blood detectionOrdered By: Zack Choi on 11-19-2023 RBC Ql (U) 10 /ul Negative [facility] Urine clarityOrdered By: Garland Choi on 11-19-2023 Clarity (U) Sl. Cloudy Clear [facility] Urine color determinationOrd ered By: Zack Cohi on 11-19-2023 Color (U) Yellow Yellow [facility] Urine glucose detectionOrder ed By: Zack Choi on 11-19-2023 Glucose Ql (U) 1000 mg/dl Normal [facility] Urine leukocyte esterase det ection by dipstickOrdered By: Zack Choi on 11-19-2023 Leukocyte esterase Test strip Ql (U) 100 /ul Negative [facility] Urine pHOrdered By: Zack james on 11-19-2023 pH (U) 6.0 [pH] 5.0 - 8.0 [facility] Urine sediment bacteria coun t by microscopy (number/high power field)Ordered By: Zack Choi on 11-19-2023 Bacteria LM.HPF (Urine sed) [#/Area] 0 /[HPF] None Seen [facility] Urine sediment yeast count b y microscopy (number/high powered field)Ordered By: Zack Choi on 11-19-2023 Yeast LM.HPF (Urine sed) [#/Area] 2 /[HPF] None Seen [facility] Urine specific gravity measu rementOrdered By: Zack Choi on 11-19-2023 Specific gravity (U) [Rel density] 1.015 1.002-1.03 0 [facility] Urine urobilinogen measureme ntOrdered By: Zack Choi on 11-19-2023 Urobilinogen Ql (U) Normal mg/dl Normal [facility] Absolute lymphocyte countOrd ered By: Bronson Retana on 06-06-2023 Lymphocytes Auto (Unsp spec) [#/Vol] 2.81 10*3/uL 0.83-4.51 [facility] Basophil percentageOrdered B y: Bronson Retana on 06-06-2023 Basophils/100 WBC (Bld) 0.8 % 0-1 [facility] Chloride [Moles/Vol] 94 mmol/L 98-107 [facility] Eosinophils/100 WBC (Bld) 0.9 % 0-5 [facility] Glucose [Mass/Vol] 554 mg/dL 74-106 [facility] Comment on above: Critical Result(s) C alled at: 18:31:37 06/06/2023 by: AUSTYN ESTRELLA. TO BARBARA SALAS RN ER Results read back by same.Glucose result greater than or equal to 200 mg/dLsuggests DIABETES MELLITUS per A.D.A. criteria. Neutrophils (Bld) [#/Vol] 3.2 10*3/uL 2.0-7.7 [facility] Neutrophils/100 WBC (Bld) 50.5 % 47-70 [facility] Potassium [Moles/Vol] 3.6 mmol/L 3.5-5.1 [facility] Sodium [Moles/Vol] 129 mmol/L 136-145 [facility] WBC (Bld) [#/Vol] 6.4 10*3/uL 4.4-11.0 [facility] Blood erythrocytes count (nu mber/volume)Ordered By: Bronson Retana on 06-06-2023 RBC (Bld) [#/Vol] 4.77 10*6/uL 4.2-5.4 [facility] Blood hemoglobin measurement (mass/volume)Ordered By: Bronson Retana on 06-06-2023 Hemoglobin (Bld) [Mass/Vol] 13.7 g/dL 12.0-15.0 [facility] Blood lymphocytes/100 leukoc ytesOrdered By: Bronson Retana on 06-06-2023 Lymphocytes/100 WBC (Bld) 44.0 % 19-41 [facility] Blood monocytes/100 leukocyt esOrdered By: Bronson Retana on 06-06-2023 Monocytes/100 WBC (Bld) 3.3 % 0-[address] [facility] Blood platelet mean volumeOr dered By: Bronson Retana on 06-06-2023 Platelet mean volume (Bld) [Entitic vol] 10.7 fL 6.2-12.0 [facility] Determination of erythrocyte mean corpuscular volume (MCV)Ordered By: Bronson Retana on 06-06-2023 MCV (RBC) [Entitic vol] 89.3 fL 81-[address] [facility] Glucose Glucometer (BldC) [M ass/Vol]Ordered By: Bronson Retana on 06-06-2023 Glucose [Mass/Vol] 327 mg/dL 74-106 [facility] Comment on above: MANAGEMENT OF PATIEN T CARE PER NURSING PROTOCOL Hematocrit Auto (Bld) [Volum e fraction]Ordered By: Bronson Retana on 06-06-2023 Hematocrit (Bld) [Volume fraction] 42.6 % 37-47 [facility] Laboratory - Chemistry and C hemistry - challengeOrdered By: Bronson Retana on 06-06-2023 CO2 [Moles/Vol] 23.0 mmol/L 21.0-32.0 [facility] Urea nitrogen/Creatinine [Mass ratio] 7.5 mg/mg 10-20 [facility] Laboratory - Hematology and Cell countsOrdered By: Bronson Retana on 06-06-2023 Erythrocyte distribution width (RBC) [Entitic vol] 44.1 fL 35.1-43.9 [facility] Erythrocyte distribution width (RBC) [Ratio] 13.4 % 11.6-14.6 [facility] Immature granulocytes/100 WBC (Bld) 0.500 % 0.0-0.9 [facility] Comment on above: IG% - Immature Granu locytes (promyelocytes, myelocytes and metamyelocytes) > 1% indicates that a LEFT SHIFT is Present. MCH (RBC) [Entitic mass] 28.7 pg 27.0-32.0 [facility] Nucleated RBC/100 WBC (Bld) [Ratio] 0 % 0-5 [facility] MCHC Auto (RBC) [Mass/Vol]Or dered By: Bronson Retana on 06-06-2023 MCHC (RBC) [Mass/Vol] 32.2 g/dL 32-36 [facility] No Panel InformationOrdered By: Bronson Retana on 06-06-2023 Estimated GFR (MDRD) Amer 52 mL/min >60 [facility] Comment on above: GFR Calc Estimated GFR (MDRD) Non-Af Amer 43 mL/min >60 [facility] Comment on above: Non- GFR Calc Platelets bldOrdered By: Yoni Retana on 06-06-2023 Platelets (Bld) [#/Vol] 233 10*3/uL 150-450 [facility] Serum or plasma acetone tai [...] on 06-06-2023 Creatinine [Mass/Vol] 1.34 mg/dL 0.55-1.02 [facility] Comment on above: The validity of the calculated GFR & GFRAA in patients over 70 years has not been determined. Clinical correlation is essential. Serum or plasma urea nitroge n measurement (mass/volume)Ordered By: Bronson Retana on 06-06-2023 Urea nitrogen [Mass/Vol] 10 mg/dL 7-18 [facility] Thin prep Papanicolaou smear with manual screeningOrdered By: Bronson Retana on 06-06-2023 Thin prep Papanicolaou smear with manual screening 12 5-15 [facility] Absolute lymphocyte countOrd ered By: ED PROVIDER on 06-04-2023 Lymphocytes Auto (Unsp spec) [#/Vol] 2.58 10*3/uL 0.83-4.51 [facility] Basophil percentageOrdered B y: Bronson Retana on 06-04-2023 Basophil percentage 0-5 SEEN /hpf 0-5 [facility] Basophil percentageOrdered B y: ED PROVIDER on 06-04-2023 Basophils/100 WBC (Bld) 0.8 % 0-1 [facility] Bilirubin [Mass/Vol] 0.80 mg/dL 0.20-1.00 [facility] Comment on above: For patients on eltr ombopag therapy, use of Dimension [place] TBIL is not recommended. Chloride [Moles/Vol] 90 mmol/L 98-107 [facility] Eosinophils/100 WBC (Bld) 0.5 % 0-5 [facility] Glucose [Mass/Vol] 491 mg/dL 74-106 [facility] Comment on above: Critical Result(s) C alled at: 15:52:49 06/04/2023 by: Tomasa Romero. Results read back by same.Glucose result greater than or equal to 200 mg/dLsuggests DIABETES MELLITUS per A.D.A. criteria. Neutrophils (Bld) [#/Vol] 3.6 10*3/uL 2.0-7.7 [facility] Neutrophils/100 WBC (Bld) 55.4 % 47-70 [facility] Potassium [Moles/Vol] 3.8 mmol/L 3.5-5.1 [facility] Protein [Mass/Vol] 7.6 g/dL 6.4-8.2 [facility] Sodium [Moles/Vol] 127 mmol/L 136-145 [facility] WBC (Bld) [#/Vol] 6.5 10*3/uL 4.4-11.0 [facility] Bilirubin Test strip Ql (U)O rdered By: Bronson Retana on 06-04-2023 Bilirubin Ql (U) Negative Negative [facility] Blood erythrocytes count (nu mber/volume)Ordered By: ED PROVIDER on 06-04-2023 RBC (Bld) [#/Vol] 4.83 10*6/uL 4.2-5.4 [facility] Blood hemoglobin measurement (mass/volume)Ordered By: ED PROVIDER on 06-04-2023 Hemoglobin (Bld) [Mass/Vol] 14.0 g/dL 12.0-15.0 [facility] Blood lymphocytes/100 leukoc ytesOrdered By: ED PROVIDER on 06-04-2023 Lymphocytes/100 WBC (Bld) 39.6 % 19-41 [facility] Blood monocytes/100 leukocyt esOrdered By: ED PROVIDER on 06-04-2023 Monocytes/100 WBC (Bld) 3.2 % 0-[address] [facility] Blood platelet mean volumeOr dered By: ED PROVIDER on 06-04-2023 Platelet mean volume (Bld) [Entitic vol] 10.7 fL 6.2-12.0 [facility] Determination of erythrocyte mean corpuscular volume (MCV)Ordered By: ED PROVIDER on 06-04-2023 MCV (RBC) [Entitic vol] 87.0 fL 81-[address] [facility] Glucose Glucometer (BldC) [M ass/Vol]Ordered By: [...] Hematocrit (Bld) [Volume fraction] 42.0 % 37-47 [facility] Ketones Test strip Ql (U)Ord ered By: Bronson Retana on 06-04-2023 Ketones Ql (U) 15 mg/dl Negative [facility] Laboratory - Chemistry and C hemistry - challengeOrdered By: ED PROVIDER on 06-04-2023 ALP [Catalytic activity/Vol] 78 U/L 45-117 [facility] ALT [Catalytic activity/Vol] 29 U/L 13-56 [facility] CO2 [Moles/Vol] 27.0 mmol/L 21.0-32.0 [facility] Globulin (S) [Mass/Vol] 4.1 g/dL 2.2-4.[address] [facility] Urea nitrogen/Creatinine [Mass ratio] 10.6 mg/mg 10-20 [facility] Laboratory - Chemistry and C hemistry - challengeOrdered By: Bronson Retana on 06-04-2023 Lipase [Catalytic activity/Vol] 39 U/L 13-75 [facility] Comment on above: Please note:LIPASE [...] distribution width (RBC) [Ratio] 13.3 % 11.6-14.6 [facility] Immature granulocytes/100 WBC (Bld) 0.500 % 0.0-0.9 [facility] Comment on above: IG% - Immature Granu locytes (promyelocytes, myelocytes and metamyelocytes) > 1% indicates that a LEFT SHIFT is Present. MCH (RBC) [Entitic mass] 29.0 pg 27.0-32.0 [facility] Nucleated RBC/100 WBC (Bld) [Ratio] 0 % 0-5 [facility] MCHC Auto (RBC) [Mass/Vol]Or dered By: ED PROVIDER on 06-04-2023 MCHC (RBC) [Mass/Vol] 33.3 g/dL 32-36 [facility] Mucus LM Ql (Urine sed)Order ed By: Bronson Retana on 06-04-2023 Mucus Ql (Urine sed) 0 SEEN /hpf [facility] Nitrite Test strip Ql (U)Ord ered By: Bronson Retana on 06-04-2023 Nitrite Ql (U) Negative Negative [facility] No Panel InformationOrdered By: ED PROVIDER on 06-04-2023 Estimated GFR (MDRD) Amer 53 mL/min >60 [facility] Comment on above: GFR Calc Estimated GFR (MDRD) Non-Af Amer 44 mL/min >60 [facility] Comment on above: Non- GFR Calc Platelets bldOrdered By: ED PROVIDER on 06-04-2023 Platelets (Bld) [#/Vol] 240 10*3/uL 150-450 [facility] Protein Test strip Ql (U)Ord ered By: Bronson Retana on 06-04-2023 Protein Ql (U) 30 mg/dl Negative [facility] Serum or plasma albumin tai urement (mass/volume)Ordered By: ED PROVIDER on 06-04-2023 Albumin [Mass/Vol] 3.5 g/dL 3.2-5.0 [facility] Serum or plasma albumin/glob ulin mass ratioOrdered By: ED PROVIDER on 06-04-2023 Albumin/Globulin [Mass ratio] 0.9 {ratio} 0.9-2.4 [facility] Serum or plasma calcium tai urement (mass/volume)Ordered By: ED PROVIDER on 06-04-2023 Calcium [Mass/Vol] 9.1 mg/dL 8.5-10.1 [facility] Serum or plasma creatinine m easurement (mass/volume)Ordered By: ED PROVIDER on 06-04-2023 Creatinine [Mass/Vol] 1.32 mg/dL 0.55-1.02 [facility] Comment on above: The validity of the calculated GFR & GFRAA in patients over 70 years has not been determined. Clinical correlation is essential. Serum or plasma urea nitroge n measurement (mass/volume)Ordered By: ED PROVIDER on 06-04-2023 Urea nitrogen [Mass/Vol] 14 mg/dL 7-18 [facility] Squamous epithelial cells de tection in urine sediment by light microscopyOrdered By: Bronson Retana on 06-04-2023 Epithelial cells.squamous LM Ql (Urine sed) 0-5 SEEN /hpf 5-10 [facility] Thin prep Papanicolaou smear with manual screeningOrdered By: ED PROVIDER on 06-04-2023 Thin prep Papanicolaou smear with manual screening 21 U/L 15-37 [facility] Thin prep Papanicolaou smear with manual screening 10 5-15 [facility] Urine blood detectionOrdered By: Bronson Retana on 06-04-2023 RBC Ql (U) 10 /ul Negative [facility] RBC Ql (U) 0 SEEN /hpf 0-5 [facility] Urine clarityOrdered By: Yoni Retana on 06-04-2023 Clarity (U) Clear Clear [facility] Urine color determinationOrd ered By: Bronson Retana on 06-04-2023 Color (U) Yellow Yellow [facility] Urine glucose detectionOrder ed By: Bronson Retana on 06-04-2023 Glucose Ql (U) 1000 mg/dl Normal [facility] Urine leukocyte esterase det ection by dipstickOrdered By: Bronson Retana on 06-04-2023 Leukocyte esterase Test strip Ql (U) 25 /ul Negative [facility] Urine pHOrdered By: Bronson bonilla on 06-04-2023 pH (U) 6.5 [pH] 5.0 - 8.0 [facility] Urine sediment bacteria coun t by microscopy (number/high power field)Ordered By: Bronson Retana on 06-04-2023 Bacteria LM.HPF (Urine sed) [#/Area] 0 /[HPF] None Seen [facility] Urine sediment yeast count b y microscopy (number/high powered field)Ordered By: Bronson Retana on 06-04-2023 Yeast LM.HPF (Urine sed) [#/Area] RARE /hpf None Seen [facility] Urine specific gravity measu rementOrdered By: Bronson Retana on 06-04-2023 Specific gravity (U) [Rel density] 1.010 1.002-1.03 0 [facility] Urobilinogen Auto test strip Ql (U)Ordered By: Bronson Retana on 06-04-2023 Urobilinogen Ql (U) Normal mg/dl Normal [facility] Absolute lymphocyte countOrd ered By: Dr. Peterson on 03-28-2023 Lymphocytes Auto (Unsp spec) [#/Vol] 2.76 10*3/uL 0.83-4.51 [facility] Basophil percentageOrdered B y: Dr. Peterson on 03-28-2023 Basophils/100 WBC (Bld) 0.5 % 0-[address] [facility] Bilirubin [Mass/Vol] 0.60 mg/dL 0.20-1.00 [facility] Comment on above: For patients on eltr ombopag therapy, use of Dimension [place] TBIL is not recommended. Chloride [Moles/Vol] 100 mmol/L 98-107 [facility] Eosinophils/100 WBC (Bld) 0.9 % 0-5 [facility] Glucose [Mass/Vol] 374 mg/dL 74-106 [facility] Comment on above: Glucose result great er than or equal to 200 mg/dLsuggests DIABETES MELLITUS per A.D.A. criteria. Neutrophils (Bld) [#/Vol] 8.7 10*3/uL 2.0-7.7 [facility] Neutrophils/100 WBC (Bld) 71.5 % 47-70 [facility] Potassium [Moles/Vol] 4.3 mmol/L 3.5-5.1 [facility] Protein [Mass/Vol] 7.6 g/dL 6.4-8.2 [facility] Sodium [Moles/Vol] 134 mmol/L 136-145 [facility] WBC (Bld) [#/Vol] 12.1 10*3/uL 4.4-11.0 [facility] Blood erythrocytes count (nu mber/volume)Ordered By: Dr. Peterson on 03-28-2023 RBC (Bld) [#/Vol] 4.33 10*6/uL 4.2-5.4 [facility] Blood hemoglobin measurement (mass/volume)Ordered By: Dr. Peterson on 03-28-2023 Hemoglobin (Bld) [Mass/Vol] 12.4 g/dL 12.0-15.0 [facility] Blood lymphocytes/100 leukoc ytesOrdered By: Dr. Peterson on 03-28-2023 Lymphocytes/100 WBC (Bld) 22.8 % 19-41 [facility] Blood monocytes/100 leukocyt esOrdered By: Dr. Peterson on 03-28-2023 Monocytes/100 WBC (Bld) 3.9 % 0-[address] [facility] Blood platelet mean volumeOr dered By: Dr. Peterson on 03-28-2023 Platelet mean volume (Bld) [Entitic vol] 9.3 fL 6.2-12.0 [facility] Determination of erythrocyte mean corpuscular volume (MCV)Ordered By: Dr. Peterson on 03-28-2023 MCV (RBC) [Entitic vol] 90.5 fL 81-[address] [facility] Hematocrit Auto (Bld) [Volum e fraction]Ordered By: Dr. Peterson on 03-28-2023 Hematocrit (Bld) [Volume fraction] 39.2 % 37-47 [facility] Laboratory - Chemistry and C hemistry - challengeOrdered By: Dr. Peterson on 03-28-2023 ALP [Catalytic activity/Vol] 75 U/L 45-117 [facility] ALT [Catalytic activity/Vol] 32 U/L 13-56 [facility] CO2 [Moles/Vol] 22.0 mmol/L 21.0-32.0 [facility] Globulin (S) [Mass/Vol] 4.1 g/dL 2.2-4.2 [facility] Urea nitrogen/Creatinine [Mass ratio] 17.9 mg/mg 10-20 [facility] Laboratory - Hematology and Cell countsOrdered By: Dr. Peterson on 03-28-2023 Erythrocyte distribution width (RBC) [Entitic vol] 42.0 fL 35.1-43.9 [facility] Erythrocyte distribution width (RBC) [Ratio] 12.7 % 11.6-14.6 [facility] Immature granulocytes/100 WBC (Bld) 0.400 % 0.0-0.9 [facility] Comment on above: IG% - Immature Granu locytes (promyelocytes, myelocytes and metamyelocytes) > 1% indicates that a LEFT SHIFT is Present. MCH (RBC) [Entitic mass] 28.6 pg 27.0-32.0 [facility] Nucleated RBC/100 WBC (Bld) [Ratio] 0 % 0-5 [facility] MCHC Auto (RBC) [Mass/Vol]Or dered By: Dr. Peterson on 03-28-2023 MCHC (RBC) [Mass/Vol] 31.6 g/dL 32-36 [facility] No Panel InformationOrdered By: Dr. Peterson on 03-28-2023 Estimated Creatinine Clearance Calc 32.47 ml/min [facility] Estimated GFR (MDRD) Amer 52 mL/min >60 [facility] Comment on above: GFR Calc Estimated GFR (MDRD) Non-Af Amer 43 mL/min >60 [facility] Comment on above: Non- GFR Calc Platelets bldOrdered By: Dr. Peterson on 03-28-2023 Platelets (Bld) [#/Vol] 347 10*3/uL 150-450 [facility] Serum or plasma albumin tai urement (mass/volume)Ordered By: Dr. Peterson on 03-28-2023 Albumin [Mass/Vol] 3.5 g/dL 3.2-5.0 [facility] Serum or plasma albumin/glob ulin mass ratioOrdered By: Dr. Peterson on 03-28-2023 Albumin/Globulin [Mass ratio] 0.9 {ratio} 0.9-2.4 [facility] Serum or plasma calcium tai urement (mass/volume)Ordered By: Dr. Peterson on 03-28-2023 Calcium [Mass/Vol] 9.1 mg/dL 8.5-10.1 [facility] Serum or plasma creatinine m easurement (mass/volume)Ordered By: Dr. Peterson on 03-28-2023 Creatinine [Mass/Vol] 1.34 mg/dL 0.55-1.02 [facility] Comment on above: The validity of the calculated GFR & GFRAA in patients over 70 years has not been determined. Clinical correlation is essential. Serum or plasma urea nitroge n measurement (mass/volume)Ordered By: Dr. Peterson on 03-28-2023 Urea nitrogen [Mass/Vol] 24 mg/dL 7-18 [facility] Thin prep Papanicolaou smear with manual screeningOrdered By: Dr. Peterson on 03-28-2023 Thin prep Papanicolaou smear with manual screening 29 U/L 15-37 [facility] Thin prep Papanicolaou smear with manual screening 12 5-15 [facility] Basophil percentageOrdered B y: Lizet Linares on 03-16-2023 Chloride [Moles/Vol] 105 mmol/L 98-107 [facility] Glucose [Mass/Vol] 171 mg/dL 74-106 [facility] Comment on above: Fasting Glucose resu lt greater than or equal to 126 mg/dL suggests DIABETES MELLITUS per A.D.A. criteria. Potassium [Moles/Vol] 3.8 mmol/L 3.5-5.1 [facility] Sodium [Moles/Vol] 139 mmol/L 136-145 [facility] WBC (Bld) [#/Vol] 7.0 10*3/uL 4.4-11.0 [facility] Blood erythrocytes count (nu mber/volume)Ordered By: Lizet Linares on 03-16-2023 RBC (Bld) [#/Vol] 3.74 10*6/uL 4.2-5.4 [facility] Blood hemoglobin measurement (mass/volume)Ordered By: Lizet Linares on 03-16-2023 Hemoglobin (Bld) [Mass/Vol] 10.8 g/dL 12.0-15.0 [facility] Blood platelet mean volumeOr dered By: Lizet Linares on 03-16-2023 Platelet mean volume (Bld) [Entitic vol] 9.6 fL 6.2-12.0 [facility] Determination of erythrocyte mean corpuscular volume (MCV)Ordered By: Lizet Linares on 03-16-2023 MCV (RBC) [Entitic vol] 93.0 fL 81-99 [facility] Hematocrit Auto (Bld) [Volum e fraction]Ordered By: Lizet Linares on 03-16-2023 Hematocrit (Bld) [Volume fraction] 34.8 % 37-47 [facility] Laboratory - Chemistry and C hemistry - challengeOrdered By: Lizet Linares on 03-16-2023 CO2 [Moles/Vol] 27.0 mmol/L 21.0-32.0 [facility] Urea nitrogen/Creatinine [Mass ratio] 18.0 mg/mg 10-20 [facility] Laboratory - Hematology and Cell countsOrdered By: Lizet Linares on 03-16-2023 Erythrocyte distribution width (RBC) [Entitic vol] 44.1 fL 35.1-43.9 [facility] Erythrocyte distribution width (RBC) [Ratio] 13.0 % 11.6-14.6 [facility] MCH (RBC) [Entitic mass] 28.9 pg 27.0-32.0 [facility] MCHC Auto (RBC) [Mass/Vol]Or dered By: Lizet Linares on 03-16-2023 MCHC (RBC) [Mass/Vol] 31.0 g/dL 32-36 [facility] No Panel InformationOrdered By: Lizet Linares on 03-16-2023 Estimated GFR (MDRD) Amer 73 mL/min >60 [facility] Comment on above: GFR Calc Estimated GFR (MDRD) Non-Af Amer 60 mL/min >60 [facility] Comment on above: Non- GFR Calc Platelets bldOrdered By: Bart Linares on 03-16-2023 Platelets (Bld) [#/Vol] 277 10*3/uL 150-450 [facility] Serum or plasma calcium tai urement (mass/volume)Ordered By: Lizet Linares on 03-16-2023 Calcium [Mass/Vol] 8.8 mg/dL 8.5-10.1 [facility] Serum or plasma creatinine m easurement (mass/volume)Ordered By: Lizet Linares on 03-16-2023 Creatinine [Mass/Vol] 1.00 mg/dL 0.55-1.02 [facility] Comment on above: The validity of the calculated GFR & GFRAA in patients over 70 years has not been determined. Clinical correlation is essential. Serum or plasma urea nitroge n measurement (mass/volume)Ordered By: Lizet Linares on 03-16-2023 Urea nitrogen [Mass/Vol] 18 mg/dL 7-18 [facility] Thin prep Papanicolaou smear with manual screeningOrdered By: Lizet Linares on 03-16-2023 Thin prep Papanicolaou smear with manual screening 7 5-15 [facility] Basophil percentageOrdered B y: Ganesh Garcia on 03-02-2023 Chloride [Moles/Vol] 106 mmol/L 98-107 [facility] Glucose [Mass/Vol] 241 mg/dL 74-106 [facility] Comment on above: Glucose result great er than or equal to 200 mg/dLsuggests DIABETES MELLITUS per A.D.A. criteria. Potassium [Moles/Vol] 4.2 mmol/L 3.5-5.1 [facility] Sodium [Moles/Vol] 138 mmol/L 136-145 [facility] WBC (Bld) [#/Vol] 6.4 10*3/uL 4.4-11.0 [facility] Blood erythrocytes count (nu mber/volume)Ordered By: Ganesh Garcia on 03-02-2023 RBC (Bld) [#/Vol] 3.81 10*6/uL 4.2-5.4 [facility] Blood hemoglobin measurement (mass/volume)Ordered By: Ganesh Garcia on 03-02-2023 Hemoglobin (Bld) [Mass/Vol] 11.2 g/dL 12.0-15.0 [facility] Blood platelet mean volumeOr dered By: Ganesh Garcia on 03-02-2023 Platelet mean volume (Bld) [Entitic vol] 9.5 fL 6.2-12.0 [facility] Determination of erythrocyte mean corpuscular volume (MCV)Ordered By: Ganesh Garcia on 03-02-2023 MCV (RBC) [Entitic vol] 92.7 fL 81-[address] [facility] Hematocrit Auto (Bld) [Volum e fraction]Ordered By: Ganesh Garcia on 03-02-2023 Hematocrit (Bld) [Volume fraction] 35.3 % 37-47 [facility] Laboratory - Chemistry and C hemistry - challengeOrdered By: Ganesh Garcia on 03-02-2023 CO2 [Moles/Vol] 26.0 mmol/L 21.0-32.0 [facility] Urea nitrogen/Creatinine [Mass ratio] 21.9 mg/mg 10-20 [facility] Laboratory - Hematology and Cell countsOrdered By: Ganesh Garcia on 03-02-2023 Erythrocyte distribution width (RBC) [Entitic vol] 44.9 fL 35.1-43.9 [facility] Erythrocyte distribution width (RBC) [Ratio] 13.2 % 11.6-14.6 [facility] MCH (RBC) [Entitic mass] 29.4 pg 27.0-32.0 [facility] MCHC Auto (RBC) [Mass/Vol]Or dered By: Ganesh Garcia on 03-02-2023 MCHC (RBC) [Mass/Vol] 31.7 g/dL 32-36 [facility] No Panel InformationOrdered By: Ganesh Garcia on 03-02-2023 Estimated GFR (MDRD) Amer 81 mL/min >60 [facility] Comment on above: GFR Calc Estimated GFR (MDRD) Non-Af Amer 67 mL/min >60 [facility] Comment on above: Non- GFR Calc Platelets bldOrdered By: Robert Garcia on 03-02-2023 Platelets (Bld) [#/Vol] 292 10*3/uL 150-450 [facility] Serum or plasma calcium tai urement (mass/volume)Ordered By: Ganesh Garcia on 03-02-2023 Calcium [Mass/Vol] 9.0 mg/dL 8.5-10.1 [facility] Serum or plasma creatinine m easurement (mass/volume)Ordered By: Ganesh Garcia on 03-02-2023 Creatinine [Mass/Vol] 0.92 mg/dL 0.55-1.02 [facility] Comment on above: The validity of the calculated GFR & GFRAA in patients over 70 years has not been determined. Clinical correlation is essential. Serum or plasma urea nitroge n measurement (mass/volume)Ordered By: Ganesh Garcia on 03-02-2023 Urea nitrogen [Mass/Vol] 20 mg/dL 7-18 [facility] Thin prep Papanicolaou smear with manual screeningOrdered By: Ganesh Garcia on 03-02-2023 Thin prep Papanicolaou smear with manual screening 6 5-15 [facility] Laboratory - Drug toxicology Ordered By: Dr. Renteria on 03-01-2023 Amphetamines Ql (U) Negative <1000 ng/mL [facility] Benzodiazepines Ql (U) Negative < 200 ng/mL [facility] Cannabinoids Screen Ql (U) Negative < 50 ng/mL [facility] Cocaine Ql (U) Negative < 300 ng/mL [facility] Opiates Ql (U) Negative < 300 ng/mL [facility] No Panel InformationOrdered By: Dr. Renteria on 03-01-2023 MDMA (Ecstasy) Screen Negative < 500 ng/mL [facility] Miscellaneous Test See comment [facility] Comment on above: [id number]+OXYCODONE-B UND (ng/mL) DRUG RESULT SCREEN CUTOFF____ Amphetamines,Urine Negative ng/mL 1000 Amphetamine test includes Amphetamine and Methamphetamine.Barbiturates Negative ng/mL 200Benzodiazepines Negative ng/mL 200Cannabinoid Negative ng/mL 20Cocaine (Metab) Negative ng/mL 300Opiates Negative ng/mL 300 Opiates test includes Codeine, Morphine, Hydromorphone, Hydrocodone. Oxycodone/Oxymorphone,Urine Negative ng/mL 300 Test includes Oxydodone and Oxymorphone. TESTING PERFORMED AT [facility]. ORIGINAL REPORT ON FILE IN LAB CONTAINS ADDITIONAL TEST SITE INFORMATION. Urine Barbiturates Screen Negative < 200 ng/mL [facility] Urine Drug Screen Comment [facility] Comment on above: CONFIRMATORY TESTING [...] Urine Methadone Screen Negative < 300 ng/mL [facility] Urine phencyclidine (PCP) de tectionOrdered By: Dr. Renteria on 03-01-2023 Phencyclidine Ql (U) Negative < 25 ng/mL [facility] Basophil percentageOrdered B y: Lizet Linares on 02-16-2023 Chloride [Moles/Vol] 102 mmol/L 98-107 [facility] Glucose [Mass/Vol] 380 mg/dL 74-106 [facility] Comment on above: Glucose result great er than or equal to 200 mg/dLsuggests DIABETES MELLITUS per A.D.A. criteria. Potassium [Moles/Vol] 4.1 mmol/L 3.5-5.1 [facility] Sodium [Moles/Vol] 133 mmol/L 136-145 [facility] WBC (Bld) [#/Vol] 6.8 10*3/uL 4.4-11.0 [facility] Blood erythrocytes count (nu mber/volume)Ordered By: Lizet Linares on 02-16-2023 RBC (Bld) [#/Vol] 3.97 10*6/uL 4.2-5.4 [facility] Blood hemoglobin measurement (mass/volume)Ordered By: Lizet Linares on 02-16-2023 Hemoglobin (Bld) [Mass/Vol] 11.8 g/dL 12.0-15.0 [facility] Blood platelet mean volumeOr dered By: Lizet Linares on 02-16-2023 Platelet mean volume (Bld) [Entitic vol] 9.6 fL 6.2-12.0 [facility] Determination of erythrocyte mean corpuscular volume (MCV)Ordered By: Lizet Linares on 02-16-2023 MCV (RBC) [Entitic vol] 92.2 fL 81-[address] [facility] Hematocrit Auto (Bld) [Volum e fraction]Ordered By: Lizet Linares on 02-16-2023 Hematocrit (Bld) [Volume fraction] 36.6 % 37-47 [facility] Laboratory - Chemistry and C hemistry - challengeOrdered By: Lizet Linares on 02-16-2023 CO2 [Moles/Vol] 29.0 mmol/L 21.0-32.0 [facility] Urea nitrogen/Creatinine [Mass ratio] 19.4 mg/mg 10-20 [facility] Laboratory - Hematology and Cell countsOrdered By: Lizet Linares on 02-16-2023 Erythrocyte distribution width (RBC) [Entitic vol] 45.4 fL 35.1-43.9 [facility] Erythrocyte distribution width (RBC) [Ratio] 13.4 % 11.6-14.6 [facility] MCH (RBC) [Entitic mass] 29.7 pg 27.0-32.0 [facility] MCHC Auto (RBC) [Mass/Vol]Or dered By: Lizet Linares on 02-16-2023 MCHC (RBC) [Mass/Vol] 32.2 g/dL 32-36 [facility] No Panel InformationOrdered By: Lizet Linares on 02-16-2023 Estimated GFR (MDRD) Amer 70 mL/min >60 [facility] Comment on above: GFR Calc Estimated GFR (MDRD) Non-Af Amer 58 mL/min >60 [facility] Comment on above: Non- GFR Calc Platelets bldOrdered By: Bart Linares on 02-16-2023 Platelets (Bld) [#/Vol] 251 10*3/uL 150-450 [facility] Serum or plasma calcium tai urement (mass/volume)Ordered By: Lizet Linares on 02-16-2023 Calcium [Mass/Vol] 8.7 mg/dL 8.5-10.1 [facility] Serum or plasma creatinine m easurement (mass/volume)Ordered By: Lizet Linares on 02-16-2023 Creatinine [Mass/Vol] 1.03 mg/dL 0.55-1.02 [facility] Comment on above: The validity of the calculated GFR & GFRAA in patients over 70 years has not been determined. Clinical correlation is essential. Serum or plasma urea nitroge n measurement (mass/volume)Ordered By: Lizet Linares on 02-16-2023 Urea nitrogen [Mass/Vol] 20 mg/dL 7-18 [facility] Thin prep Papanicolaou smear with manual screeningOrdered By: Lizet Linares on 02-16-2023 Thin prep Papanicolaou smear with manual screening 2 5-15 [facility] Absolute lymphocyte countOrd ered By: Lizet Linares on 02-02-2023 Lymphocytes Auto (Unsp spec) [#/Vol] 3.01 10*3/uL 0.83-4.51 [facility] Basophil percentageOrdered B y: Lizet Linares on 02-02-2023 Basophil percentage 247 mg/dL 74-106 [facility] Basophil percentage 136 mmol/L 136-145 [facility] Basophil percentage 4.2 mmol/L 3.5-5.1 [facility] Basophil percentage 103 mmol/L 98-107 [facility] Basophils (Bld) [#/Vol] 9.3 10*3/uL 4.4-11.0 [facility] Basophils (Bld) [#/Vol] 5.7 10*3/uL 2.0-7.7 [facility] Basophils/100 WBC (Bld) 60.8 % 47-[address] [facility] Basophils/100 WBC (Bld) 0.4 % 0-[address] [facility] Basophils/100 WBC (Bld) 0.6 % 0-[address] [facility] Chloride [Moles/Vol] 103 mmol/L 98-107 [facility] Eosinophils/100 WBC (Bld) 0.4 % 0-5 [facility] Glucose [Mass/Vol] 247 mg/dL 74-106 [facility] Comment on above: Glucose result great er than or equal to 200 mg/dLsuggests DIABETES MELLITUS per A.D.A. criteria. Neutrophils (Bld) [#/Vol] 5.7 10*3/uL 2.0-7.7 [facility] Neutrophils/100 WBC (Bld) 60.8 % 47-70 [facility] Potassium [Moles/Vol] 4.2 mmol/L 3.5-5.1 [facility] Sodium [Moles/Vol] 136 mmol/L 136-145 [facility] WBC (Bld) [#/Vol] 9.3 10*3/uL 4.4-11.0 [facility] Blood erythrocytes count (nu mber/volume)Ordered By: Lizet Linares on 02-02-2023 RBC (Bld) [#/Vol] 3.83 10*6/uL 4.2-5.4 [facility] Blood hemoglobin measurement (mass/volume)Ordered By: Lizet Linares on 02-02-2023 Hemoglobin (Bld) [Mass/Vol] 11.3 g/dL 12.0-15.0 [facility] Blood lymphocytes/100 leukoc ytesOrdered By: [facility]eston[facility]asha Linares on 02-02-2023 Lymphocytes/100 WBC (Bld) 32.3 % 19-41 [facility] Blood monocytes/100 leukocyt esOrdered By: marcelle Linares on 02-02-2023 Monocytes/100 WBC (Bld) 5.6 % 0-[address] [facility] Blood platelet mean volumeOr dered By: Hollyhartlandnatasha Linares on 02-02-2023 Platelet mean volume (Bld) [Entitic vol] 9.6 fL 6.2-12.0 [facility] Determination of erythrocyte mean corpuscular volume (MCV)Ordered By: Lizet Linares on 02-02-2023 MCV (RBC) [Entitic vol] 90.9 fL 81-99 [facility] Hematocrit Auto (Bld) [Volum e fraction]Ordered By: Hollyhartlandnatasha Linares on 02-02-2023 Hematocrit (Bld) [Volume fraction] 34.8 % 37-47 [facility] Laboratory - Chemistry and C hemistry - challengeOrdered By: Lizet Linares on 02-02-2023 CO2 [Moles/Vol] 26.0 mmol/L 21.0-32.0 [facility] Urea nitrogen/Creatinine [Mass ratio] 28.8 mg/mg 10-20 [facility] Laboratory - Hematology and Cell countsOrdered By: Lizet Linares on 02-02-2023 Erythrocyte distribution width (RBC) [Entitic vol] 44.8 fL 35.1-43.9 [facility] Erythrocyte distribution width (RBC) [Ratio] 13.3 % 11.6-14.6 [facility] Immature granulocytes/100 WBC (Bld) 0.300 % 0.0-0.9 [facility] Comment on above: IG% - Immature Granu locytes (promyelocytes, myelocytes and metamyelocytes) > 1% indicates that a LEFT SHIFT is Present. MCH (RBC) [Entitic mass] 29.5 pg 27.0-32.0 [facility] Nucleated RBC/100 WBC (Bld) [Ratio] 0 % 0-5 [facility] MCHC Auto (RBC) [Mass/Vol]Or dered By: Lizet Linares on 02-02-2023 MCHC (RBC) [Mass/Vol] 32.5 g/dL 32-36 [facility] No Panel InformationOrdered By: Lizet Linares on 02-02-2023 Estimated GFR (MDRD) Amer 65 mL/min >60 [facility] Comment on above: GFR Calc Estimated GFR (MDRD) Non-Af Amer 53 mL/min >60 [facility] Comment on above: Non- GFR Calc 29.5 pg 27.0-32.0 [facility] 13.3 % 11.6-14.6 [facility] 44.8 fl 35.1-43.9 [facility] 0.300 % 0.0-0.9 [facility] 0 % 0-5 [facility] 53 mL/min >60 [facility] 65 mL/min >60 [facility] 28.8 RATIO 10-20 [facility] 26.0 mmol/L 21.0-32.0 [facility] Platelets bldOrdered By: Bart Linares on 02-02-2023 Platelets (Bld) [#/Vol] 299 10*3/uL 150-450 [facility] Serum or plasma calcium tai urement (mass/volume)Ordered By: Lizet Linares on 02-02-2023 Calcium [Mass/Vol] 8.0 mg/dL 8.5-10.1 [facility] Serum or plasma creatinine m easurement (mass/volume)Ordered By: Lizet Linares on 02-02-2023 Creatinine [Mass/Vol] 1.11 mg/dL 0.55-1.02 [facility] Comment on above: The validity of the calculated GFR & GFRAA in patients over 70 years has not been determined. Clinical correlation is essential. Serum or plasma urea nitroge n measurement (mass/volume)Ordered By: Lizet Linares on 02-02-2023 Urea nitrogen [Mass/Vol] 32 mg/dL 7-18 [facility] Thin prep Papanicolaou smear with manual screeningOrdered By: Lizet Linares on 02-02-2023 Thin prep Papanicolaou smear with manual screening 7 5-15 [facility] Absolute lymphocyte countOrd ered By: ED PROVIDER on 01-29-2023 Lymphocytes Auto (Unsp spec) [#/Vol] 2.44 10*3/uL 0.83-4.51 [facility] Basophil percentageOrdered B y: ED PROVIDER on 01-29-2023 Basophil percentage 311 mg/dL 74-106 [facility] Basophil percentage 135 mmol/L 136-145 [facility] Basophil percentage 4.1 mmol/L 3.5-5.1 [facility] Basophil percentage 99 mmol/L 98-107 [facility] Basophils (Bld) [#/Vol] 12.0 10*3/uL 4.4-11.0 [facility] Basophils (Bld) [#/Vol] 9.0 10*3/uL 2.0-7.7 [facility] Basophils/100 WBC (Bld) 74.7 % 47-[address] [facility] Basophils/100 WBC (Bld) 0.0 % 0-[address] [facility] Basophils/100 WBC (Bld) 0.3 % 0-1 [facility] Chloride [Moles/Vol] 99 mmol/L 98-107 [facility] Eosinophils/100 WBC (Bld) 0.0 % 0-5 [facility] Glucose [Mass/Vol] 311 mg/dL 74-106 [facility] Comment on above: Glucose result great er than or equal to 200 mg/dLsuggests DIABETES MELLITUS per A.D.A. criteria. Neutrophils (Bld) [#/Vol] 9.0 10*3/uL 2.0-7.7 [facility] Neutrophils/100 WBC (Bld) 74.7 % 47-70 [facility] Potassium [Moles/Vol] 4.1 mmol/L 3.5-5.1 [facility] Sodium [Moles/Vol] 135 mmol/L 136-145 [facility] WBC (Bld) [#/Vol] 12.0 10*3/uL 4.4-11.0 [facility] Blood erythrocytes count (nu mber/volume)Ordered By: ED PROVIDER on 01-29-2023 RBC (Bld) [#/Vol] 4.25 10*6/uL 4.2-5.4 [facility] Blood hemoglobin measurement (mass/volume)Ordered By: ED PROVIDER on 01-29-2023 Hemoglobin (Bld) [Mass/Vol] 12.4 g/dL 12.0-15.0 [facility] Blood lymphocytes/100 leukoc ytesOrdered By: ED PROVIDER on 01-29-2023 Lymphocytes/100 WBC (Bld) 20.3 % 19-41 [facility] Blood monocytes/100 leukocyt esOrdered By: ED PROVIDER on 01-29-2023 Monocytes/100 WBC (Bld) 4.0 % 0-10 [facility] Blood platelet mean volumeOr dered By: ED PROVIDER on 01-29-2023 Platelet mean volume (Bld) [Entitic vol] 9.3 fL 6.2-12.0 [facility] Determination of erythrocyte mean corpuscular volume (MCV)Ordered By: ED PROVIDER on 01-29-2023 MCV (RBC) [Entitic vol] 89.2 fL 81-[address] [facility] Hematocrit Auto (Bld) [Volum e fraction]Ordered By: ED PROVIDER on 01-29-2023 Hematocrit (Bld) [Volume fraction] 37.9 % 37-47 [facility] Laboratory - Chemistry and C hemistry - challengeOrdered By: ED PROVIDER on 01-29-2023 CO2 [Moles/Vol] 28.0 mmol/L 21.0-32.0 [facility] Urea nitrogen/Creatinine [Mass ratio] 22.3 mg/mg 10-20 [facility] Laboratory - Hematology and Cell countsOrdered By: ED PROVIDER on 01-29-2023 Erythrocyte distribution width (RBC) [Entitic vol] 43.1 fL 35.1-43.9 [facility] Erythrocyte distribution width (RBC) [Ratio] 13.2 % 11.6-14.6 [facility] Immature granulocytes/100 WBC (Bld) 0.700 % 0.0-0.9 [facility] Comment on above: IG% - Immature Granu locytes (promyelocytes, myelocytes and metamyelocytes) > 1% indicates that a LEFT SHIFT is Present. MCH (RBC) [Entitic mass] 29.2 pg 27.0-32.0 [facility] Nucleated RBC/100 WBC (Bld) [Ratio] 0 % 0-5 [facility] MCHC Auto (RBC) [Mass/Vol]Or dered By: ED PROVIDER on 01-29-2023 MCHC (RBC) [Mass/Vol] 32.7 g/dL 32-36 [facility] No Panel InformationOrdered By: Dr. Dunn on 01-29-2023 Troponin I High Sensitivity 13 pg/mL 3.0-54.0 [facility] Comment on above: Please Note: New Carolann t Units and Gender Specific Reference Ranges. For more information see Policy Stat Procedure [place] High Sensitivity Troponin (TNIH) and attachments. 13 pg/mL 3.0-54.0 [facility] D-Dimer Quantitative (PE/DVT) 0.39 FEU/ug/m 0.27-0.49 [facility] Comment on above: NORMAL D-Dimer level (<0.50) indicates no DVT or PE. 0.39 FEU/ug/m 0.27-0.49 [facility] No Panel InformationOrdered By: ED PROVIDER on 01-29-2023 Estimated Creatinine Clearance Calc 38.85 ml/min [facility] Estimated GFR (MDRD) Amer 64 mL/min >60 [facility] Comment on above: GFR Calc Estimated GFR (MDRD) Non-Af Amer 53 mL/min >60 [facility] Comment on above: Non- GFR Calc 29.2 pg 27.0-32.0 [facility] 13.2 % 11.6-14.6 [facility] 43.1 fl 35.1-43.9 [facility] 0.700 % 0.0-0.9 [facility] 0 % 0-5 [facility] 53 mL/min >60 [facility] 64 mL/min >60 [facility] 38.85 ml/min [facility] 22.3 RATIO 10-20 [facility] 28.0 mmol/L 21.0-32.0 [facility] Platelets bldOrdered By: ED PROVIDER on 01-29-2023 Platelets (Bld) [#/Vol] 347 10*3/uL 150-450 [facility] Serum or plasma calcium tai urement (mass/volume)Ordered By: ED PROVIDER on 01-29-2023 Calcium [Mass/Vol] 9.3 mg/dL 8.5-10.1 [facility] Serum or plasma creatinine m easurement (mass/volume)Ordered By: ED PROVIDER on 01-29-2023 Creatinine [Mass/Vol] 1.12 mg/dL 0.55-1.02 [facility] Comment on above: The validity of the calculated GFR & GFRAA in patients over 70 years has not been determined. Clinical correlation is essential. Serum or plasma urea nitroge n measurement (mass/volume)Ordered By: ED PROVIDER on 01-29-2023 Urea nitrogen [Mass/Vol] 25 mg/dL 7-18 [facility] Thin prep Papanicolaou smear with manual screeningOrdered By: ED PROVIDER on 01-29-2023 Thin prep Papanicolaou smear with manual screening 8 5-15 [facility] Basophil percentageOrdered B y: Ganesh Garcia on 01-19-2023 Basophil percentage 197 mg/dL 74-106 [facility] Basophil percentage 138 mmol/L 136-145 [facility] Basophil percentage 4.0 mmol/L 3.5-5.1 [facility] Basophil percentage 106 mmol/L 98-107 [facility] Basophils (Bld) [#/Vol] 6.4 10*3/uL 4.4-11.0 [facility] Chloride [Moles/Vol] 106 mmol/L 98-107 [facility] Glucose [Mass/Vol] 197 mg/dL 74-106 [facility] Comment on above: Fasting Glucose resu lt greater than or equal to 126 mg/dL suggests DIABETES MELLITUS per A.D.A. criteria. Potassium [Moles/Vol] 4.0 mmol/L 3.5-5.1 [facility] Sodium [Moles/Vol] 138 mmol/L 136-145 [facility] WBC (Bld) [#/Vol] 6.4 10*3/uL 4.4-11.0 [facility] Blood erythrocytes count (nu mber/volume)Ordered By: Ganesh Garcia on 01-19-2023 RBC (Bld) [#/Vol] 3.58 10*6/uL 4.2-5.4 [facility] Blood hemoglobin measurement (mass/volume)Ordered By: Ganesh Garcia on 01-19-2023 Hemoglobin (Bld) [Mass/Vol] 10.4 g/dL 12.0-15.0 [facility] Blood platelet mean volumeOr dered By: Ganesh Garcia on 01-19-2023 Platelet mean volume (Bld) [Entitic vol] 9.9 fL 6.2-12.0 [facility] Determination of erythrocyte mean corpuscular volume (MCV)Ordered By: Ganesh Garcia on 01-19-2023 MCV (RBC) [Entitic vol] 92.5 fL 81-99 [facility] Hematocrit Auto (Bld) [Volum e fraction]Ordered By: Ganesh Garcia on 01-19-2023 Hematocrit (Bld) [Volume fraction] 33.1 % 37-47 [facility] - Chemistry and C hemistry - challengeOrdered By: Ganesh Garcia on 01-19-2023 CO2 [Moles/Vol] 27.0 mmol/L 21.0-32.0 [facility] Urea nitrogen/Creatinine [Mass ratio] 19.3 mg/mg 10-20 [facility] - Hematology and Cell countsOrdered By: Ganesh Garcia on 01-19-2023 Erythrocyte distribution width (RBC) [Entitic vol] 46.8 fL 35.1-43.9 [facility] Erythrocyte distribution width (RBC) [Ratio] 13.6 % 11.6-14.6 [facility] MCH (RBC) [Entitic mass] 29.1 pg 27.0-32.0 [facility] MCHC Auto (RBC) [Mass/Vol]Or dered By: aGnesh Garcia on 01-19-2023 MCHC (RBC) [Mass/Vol] 31.4 g/dL 32-36 [facility] No Panel InformationOrdered By: Ganesh Garcia on 01-19-2023 Estimated GFR (MDRD) Amer 74 mL/min >60 [facility] Comment on above: GFR Calc Estimated GFR (MDRD) Non-Af Amer 61 mL/min >60 [facility] Comment on above: Non- GFR Calc 29.1 pg 27.0-32.0 [facility] 13.6 % 11.6-14.6 [facility] 46.8 fl 35.1-43.9 [facility] 61 mL/min >60 [facility] 74 mL/min >60 [facility] 19.3 RATIO 10-20 [facility] 27.0 mmol/L 21.0-32.0 [facility] Platelets bldOrdered By: Robert Garcia on 01-19-2023 Platelets (Bld) [#/Vol] 285 10*3/uL 150-450 [facility] Serum or plasma calcium tai urement (mass/volume)Ordered By: Ganesh Garcia on 01-19-2023 Calcium [Mass/Vol] 8.7 mg/dL 8.5-10.1 [facility] Serum or plasma creatinine m easurement (mass/volume)Ordered By: Ganesh Garcia on 01-19-2023 Creatinine [Mass/Vol] 0.98 mg/dL 0.55-1.02 [facility] Comment on above: The validity of the calculated GFR & GFRAA in patients over 70 years has not been determined. Clinical correlation is essential. Serum or plasma urea nitroge n measurement (mass/volume)Ordered By: Ganesh Garcia on 01-19-2023 Urea nitrogen [Mass/Vol] 19 mg/dL 7-18 [facility] Thin prep Papanicolaou smear with manual screeningOrdered By: Ganesh Garcia on 01-19-2023 Thin prep Papanicolaou smear with manual screening 5 5-15 [facility] Basophil percentageOrdered B y: Ganesh Garcia on 01-18-2023 Basophil percentage 103 mg/dL <200 [facility] Basophil percentage 325 mg/dL <199 [facility] Cholesterol [Mass/Vol] 103 mg/dL <200 [facility] Comment on above: <200 mg/dL Desirable 200-240 mg/dL Borderline >240 mg/dL High Risk Triglyceride [Mass/Vol] 325 mg/dL <[address] [facility] Comment on above: The drugs N-Acetylcy steine and Metamizole may falsely depress this assay.Serum Triglycerides Reference Interval Normal <150 mg/dL Borderline high 150 - 199 mg/dL High 200 - 499 mg/dL Very High > or = 500 mg/dL Serum or plasma cholesterol in HDL measurement (mass/volume)Ordered By: Ganesh Garcia on 01-18-2023 Cholesterol in HDL [Mass/Vol] 23 mg/dL >40 [facility] Comment on above: The drugs N-Acetylcy steine and Metamizole may falsely depress this assay. Reference Range HDL <40 mg/dL Low HDL Cholesterol HDL >or= 60 mg/dL High HDL Cholesterol Serum or plasma cholesterol in VLDL measurement (mass/volume)Ordered By: Ganesh Garcia on 01-18-2023 Cholesterol in VLDL [Mass/Vol] 65 mg/dL 5-40 [facility] Serum or plasma low density lipoprotein (LDL) cholesterol measurement (mass/volume)Ordered By: Ganesh Garcia on 01-18-2023 Cholesterol in LDL [Mass/Vol] 15 mg/dL 0-130 [facility] Absolute lymphocyte countOrd ered By: Dr. Govea on 01-06-2023 Lymphocytes Auto (Unsp spec) [#/Vol] 2.51 10*3/uL 0.83-4.51 [facility] Basophil percentageOrdered B y: Dr. Govea on 01-06-2023 Basophil percentage 0 SEEN /hpf 0-5 [facility] Basophil percentage 170 mg/dL 74-106 [facility] Basophil percentage 139 mmol/L 136-145 [facility] Basophil percentage 4.6 mmol/L 3.5-5.1 [facility] Basophil percentage 103 mmol/L 98-107 [facility] Basophils (Bld) [#/Vol] 6.5 10*3/uL 4.4-11.0 [facility] Basophils (Bld) [#/Vol] 3.4 10*3/uL 2.0-7.7 [facility] Basophils/100 WBC (Bld) 53.1 % 47-[address] [facility] Basophils/100 WBC (Bld) 1.7 % 0-[address] [facility] Basophils/100 WBC (Bld) 0.5 % 0-[address] [facility] Chloride [Moles/Vol] 103 mmol/L 98-107 [facility] Eosinophils/100 WBC (Bld) 1.7 % 0-5 [facility] Glucose [Mass/Vol] 170 mg/dL 74-106 [facility] Comment on above: Fasting Glucose resu lt greater than or equal to 126 mg/dL suggests DIABETES MELLITUS per A.D.A. criteria. Neutrophils (Bld) [#/Vol] 3.4 10*3/uL 2.0-7.7 [facility] Neutrophils/100 WBC (Bld) 53.1 % 47-70 [facility] Potassium [Moles/Vol] 4.6 mmol/L 3.5-5.1 [facility] Sodium [Moles/Vol] 139 mmol/L 136-145 [facility] WBC (Bld) [#/Vol] 6.5 10*3/uL 4.4-11.0 [facility] Bilirubin Test strip Ql (U)O rdered By: Dr. Govea on 01-06-2023 Bilirubin Ql (U) Negative Negative [facility] Blood erythrocytes count (nu mber/volume)Ordered By: Dr. Govea on 01-06-2023 RBC (Bld) [#/Vol] 4.01 10*6/uL 4.2-5.4 [facility] Blood hemoglobin measurement (mass/volume)Ordered By: Dr. Govea on 01-06-2023 Hemoglobin (Bld) [Mass/Vol] 11.6 g/dL 12.0-15.0 [facility] Blood lymphocytes/100 leukoc ytesOrdered By: Dr. Govea on 01-06-2023 Lymphocytes/100 WBC (Bld) 38.7 % 19-41 [facility] Blood monocytes/100 leukocyt esOrdered By: Dr. Govea on 01-06-2023 Monocytes/100 WBC (Bld) 5.7 % 0-10 [facility] Blood platelet mean volumeOr dered By: Dr. Govea on 01-06-2023 Platelet mean volume (Bld) [Entitic vol] 9.1 fL 6.2-12.0 [facility] Determination of erythrocyte mean corpuscular volume (MCV)Ordered By: Dr. Govea on 01-06-2023 MCV (RBC) [Entitic vol] 90.8 fL 81-[address] [facility] Hematocrit Auto (Bld) [Volum e fraction]Ordered By: Dr. Govea on 01-06-2023 Hematocrit (Bld) [Volume fraction] 36.4 % 37-47 [facility] Ketones Test strip Ql (U)Ord ered By: Dr. Govea on 01-06-2023 Ketones Ql (U) Negative Negative [facility] Laboratory - Chemistry and C hemistry - challengeOrdered By: Dr. Govea on 01-06-2023 CO2 [Moles/Vol] 28.0 mmol/L 21.0-32.0 [facility] Urea nitrogen/Creatinine [Mass ratio] 23.6 mg/mg 10-20 [facility] - Hematology and Cell countsOrdered By: Dr. Govea on 01-06-2023 Erythrocyte distribution width (RBC) [Entitic vol] 44.8 fL 35.1-43.9 [facility] Erythrocyte distribution width (RBC) [Ratio] 13.6 % 11.6-14.6 [facility] Immature granulocytes/100 WBC (Bld) 0.300 % 0.0-0.9 [facility] Comment on above: IG% - Immature Granu locytes (promyelocytes, myelocytes and metamyelocytes) > 1% indicates that a LEFT SHIFT is Present. MCH (RBC) [Entitic mass] 28.9 pg 27.0-32.0 [facility] Nucleated RBC/100 WBC (Bld) [Ratio] 0 % 0-5 [facility] MCHC Auto (RBC) [Mass/Vol]Or dered By: Dr. Govea on 01-06-2023 MCHC (RBC) [Mass/Vol] 31.9 g/dL 32-36 [facility] Mucus LM Ql (Urine sed)Order ed By: Dr. Govea on 01-06-2023 Mucus Ql (Urine sed) 0 SEEN /hpf [facility] Nitrite Test strip Ql (U)Ord ered By: Dr. Govea on 01-06-2023 Nitrite Ql (U) Negative Negative [facility] No Panel InformationOrdered By: Dr. Govea on 01-06-2023 Estimated Creatinine Clearance Calc 46.78 ml/min [facility] Estimated GFR (MDRD) Amer 79 mL/min >60 [facility] Comment on above: GFR Calc Estimated GFR (MDRD) Non-Af Amer 65 mL/min >60 [facility] Comment on above: Non- GFR Calc 28.9 pg 27.0-32.0 [facility] 13.6 % 11.6-14.6 [facility] 44.8 fl 35.1-43.9 [facility] 0.300 % 0.0-0.9 [facility] 0 % 0-5 [facility] 65 mL/min >60 [facility] 79 mL/min >60 [facility] 46.78 ml/min [facility] 23.6 RATIO 10-20 [facility] 28.0 mmol/L 21.0-32.0 [facility] Platelets bldOrdered By: Dr. Govea on 01-06-2023 Platelets (Bld) [#/Vol] 295 10*3/uL 150-450 [facility] Protein Test strip Ql (U)Ord ered By: Dr. Govea on 01-06-2023 Protein Ql (U) Negative Negative [facility] Serum or plasma calcium tai urement (mass/volume)Ordered By: Dr. Govea on 01-06-2023 Calcium [Mass/Vol] 9.2 mg/dL 8.5-10.1 [facility] Serum or plasma creatinine m easurement (mass/volume)Ordered By: Dr. Govea on 01-06-2023 Creatinine [Mass/Vol] 0.93 mg/dL 0.55-1.02 [facility] Comment on above: The validity of the calculated GFR & GFRAA in patients over 70 years has not been determined. Clinical correlation is essential. Serum or plasma urea nitroge n measurement (mass/volume)Ordered By: Dr. Govea on 01-06-2023 Urea nitrogen [Mass/Vol] 22 mg/dL 7-18 [facility] Squamous epithelial cells de tection in urine sediment by light microscopyOrdered By: Dr. Govea on 01-06-2023 Epithelial cells.squamous LM Ql (Urine sed) 0 SEEN /hpf 5-10 [facility] Thin prep Papanicolaou smear with manual screeningOrdered By: Dr. Govea on 01-06-2023 Thin prep Papanicolaou smear with manual screening 8 5- [facility] Urine blood detectionOrdered By: Dr. Govea on 01-06-2023 RBC Ql (U) Negative Negative [facility] RBC Ql (U) 0 SEEN /hpf 0-5 [facility] Urine clarityOrdered By: Dr. Govea on 01-06-2023 Clarity (U) Clear Clear [facility] Urine color determinationOrd ered By: Dr. Govea on 01-06-2023 Color (U) Yellow Yellow [facility] Urine glucose detectionOrder ed By: Dr. Govea on 01-06-2023 Glucose Ql (U) Normal mg/dl Normal [facility] Urine leukocyte esterase det ection by dipstickOrdered By: Dr. Govea on 01-06-2023 Leukocyte esterase Test strip Ql (U) Negative Negative [facility] Urine pHOrdered By: Dr. Jovanni butler on 01-06-2023 pH (U) 7.0 [pH] 5.0 - 8.0 [facility] Urine sediment bacteria coun t by microscopy (number/high power field)Ordered By: Dr. Govea on 01-06-2023 Bacteria LM.HPF (Urine sed) [#/Area] 0 /[HPF] None Seen [facility] Urine specific gravity measu rementOrdered By: Dr. Govea on 01-06-2023 Specific gravity (U) [Rel density] 1.010 1.002-1.03 0 [facility] Urobilinogen Auto test strip Ql (U)Ordered By: Dr. Govea on 01-06-2023 Urobilinogen Ql (U) Normal mg/dl Normal [facility] Basophil percentageOrdered B y: Ganesh Garcia on 01-05-2023 Basophil percentage 175 mg/dL 74-106 [facility] Basophil percentage 140 mmol/L 136-145 [facility] Basophil percentage 4.1 mmol/L 3.5-5.1 [facility] Basophil percentage 104 mmol/L 98-107 [facility] Basophils (Bld) [#/Vol] 7.1 10*3/uL 4.4-11.0 [facility] Chloride [Moles/Vol] 104 mmol/L 98-107 [facility] Glucose [Mass/Vol] 175 mg/dL 74-106 [facility] Comment on above: Fasting Glucose resu lt greater than or equal to 126 mg/dL suggests DIABETES MELLITUS per A.D.A. criteria. Potassium [Moles/Vol] 4.1 mmol/L 3.5-5.1 [facility] Sodium [Moles/Vol] 140 mmol/L 136-145 [facility] WBC (Bld) [#/Vol] 7.1 10*3/uL 4.4-11.0 [facility] Blood erythrocytes count (nu mber/volume)Ordered By: Ganesh Garcia on 01-05-2023 RBC (Bld) [#/Vol] 3.70 10*6/uL 4.2-5.4 [facility] Blood hemoglobin measurement (mass/volume)Ordered By: Ganesh Garcia on 01-05-2023 Hemoglobin (Bld) [Mass/Vol] 11.0 g/dL 12.0-15.0 [facility] Blood platelet mean volumeOr dered By: Ganesh Garcia on 01-05-2023 Platelet mean volume (Bld) [Entitic vol] 9.1 fL 6.2-12.0 [facility] Determination of erythrocyte mean corpuscular volume (MCV)Ordered By: Ganesh Garcia on 01-05-2023 MCV (RBC) [Entitic vol] 91.9 fL 81-99 [facility] Hematocrit Auto (Bld) [Volum e fraction]Ordered By: Ganesh Garcia on 01-05-2023 Hematocrit (Bld) [Volume fraction] 34.0 % 37-47 [facility] - Chemistry and C hemistry - challengeOrdered By: Ganesh Garcia on 01-05-2023 CO2 [Moles/Vol] 28.0 mmol/L 21.0-32.0 [facility] Urea nitrogen/Creatinine [Mass ratio] 21.5 mg/mg 10-20 [facility] - Hematology and Cell countsOrdered By: Ganesh Garcia on 01-05-2023 Erythrocyte distribution width (RBC) [Entitic vol] 46.1 fL 35.1-43.9 [facility] Erythrocyte distribution width (RBC) [Ratio] 13.9 % 11.6-14.6 [facility] MCH (RBC) [Entitic mass] 29.7 pg 27.0-32.0 [facility] MCHC Auto (RBC) [Mass/Vol]Or dered By: Ganesh Garcia on 01-05-2023 MCHC (RBC) [Mass/Vol] 32.4 g/dL 32-36 [facility] No Panel InformationOrdered By: Ganesh Garcia on 01-05-2023 Estimated GFR (MDRD) Amer 75 mL/min >60 [facility] Comment on above: GFR Calc Estimated GFR (MDRD) Non-Af Amer 62 mL/min >60 [facility] Comment on above: Non- GFR Calc 29.7 pg 27.0-32.0 [facility] 13.9 % 11.6-14.6 [facility] 46.1 fl 35.1-43.9 [facility] 62 mL/min >60 [facility] 75 mL/min >60 [facility] 21.5 RATIO 10-20 [facility] 28.0 mmol/L 21.0-32.0 [facility] Platelets bldOrdered By: Robert Garcia on 01-05-2023 Platelets (Bld) [#/Vol] 299 10*3/uL 150-450 [facility] Serum or plasma calcium tai urement (mass/volume)Ordered By: Ganesh Garcia on 01-05-2023 Calcium [Mass/Vol] 9.0 mg/dL 8.5-10.1 [facility] Serum or plasma creatinine m easurement (mass/volume)Ordered By: Ganesh Garcia on 01-05-2023 Creatinine [Mass/Vol] 0.98 mg/dL 0.55-1.02 [facility] Comment on above: The validity of the calculated GFR & GFRAA in patients over 70 years has not been determined. Clinical correlation is essential. Serum or plasma urea nitroge n measurement (mass/volume)Ordered By: Ganesh Garcia on 01-05-2023 Urea nitrogen [Mass/Vol] 21 mg/dL 7-18 [facility] Thin prep Papanicolaou smear with manual screeningOrdered By: Ganesh Garcia on 01-05-2023 Thin prep Papanicolaou smear with manual screening 8 5-15 [facility] Basophil percentageOrdered B y: Lizet Linares on 12-28-2022 Basophil percentage 310 mg/dL 74-106 [facility] Basophil percentage 137 mmol/L 136-145 [facility] Basophil percentage 3.8 mmol/L 3.5-5.1 [facility] Basophil percentage 103 mmol/L 98-107 [facility] Chloride [Moles/Vol] 103 mmol/L 98-107 [facility] Glucose [Mass/Vol] 310 mg/dL 74-106 [facility] Comment on above: Glucose result great er than or equal to 200 mg/dLsuggests DIABETES MELLITUS per A.D.A. criteria. Potassium [Moles/Vol] 3.8 mmol/L 3.5-5.1 [facility] Sodium [Moles/Vol] 137 mmol/L 136-145 [facility] Laboratory - Chemistry and C hemistry - challengeOrdered By: Lizet Linares on 12-28-2022 CO2 [Moles/Vol] 26.0 mmol/L 21.0-32.0 [facility] Urea nitrogen/Creatinine [Mass ratio] 20.3 mg/mg 10- [facility] No Panel InformationOrdered By: Lizet Linares on 12-28-2022 Estimated GFR (MDRD) Amer 74 mL/min >60 [facility] Comment on above: GFR Calc Estimated GFR (MDRD) Non-Af Amer 61 mL/min >60 [facility] Comment on above: Non- GFR Calc 61 mL/min >60 [facility] 74 mL/min >60 [facility] 20.3 RATIO 08-13 [facility] 26.0 mmol/L 21.0-32.0 [facility] Serum or plasma calcium tai urement (mass/volume)Ordered By: Lizet Linares on 12-28-2022 Calcium [Mass/Vol] 8.7 mg/dL 8.5-10.1 [facility] Serum or plasma creatinine m easurement (mass/volume)Ordered By: Lizet Linares on 12-28-2022 Creatinine [Mass/Vol] 0.99 mg/dL 0.55-1.02 [facility] Comment on above: The validity of the calculated GFR & GFRAA in patients over 70 years has not been determined. Clinical correlation is essential. Serum or plasma urea nitroge n measurement (mass/volume)Ordered By: Lizet Linares on 12-28-2022 Urea nitrogen [Mass/Vol] 20 mg/dL 7-18 [facility] Thin prep Papanicolaou smear with manual screeningOrdered By: Lizet Linares on 12-28-2022 Thin prep Papanicolaou smear with manual screening 8 5-15 [facility] No Panel InformationOrdered By: Lizet Linares on 12-23-2022 Thyroid Stimulating Hormone (TSH) 0.40 uIU/mL 0.358-3.74 [facility] 0.40 uIU/mL 0.358-3.74 [facility] Whole blood hemoglobin A1c/t otal hemoglobin ratio (mass fraction)Ordered By: Lizet Linares on 12-23-2022 HbA1c (Bld) [Mass fraction] 7.9 % 3.8-5.6 [facility] Comment on above: Normal < 5.7 % Predi abetic 5.7 - 6.4 % Diabetic >or= 6.5 % Please note range changes. Basophil percentageOrdered B y: Lizet Linares on 12-22-2022 Basophil percentage 169 mg/dL 74-106 [facility] Basophil percentage 138 mmol/L 136-145 [facility] Basophil percentage 3.9 mmol/L 3.5-5.1 [facility] Basophil percentage 104 mmol/L 98-107 [facility] Basophils (Bld) [#/Vol] 7.4 10*3/uL 4.4-11.0 [facility] Chloride [Moles/Vol] 104 mmol/L 98-107 [facility] Glucose [Mass/Vol] 169 mg/dL 74-106 [facility] Comment on above: Fasting Glucose resu lt greater than or equal to 126 mg/dL suggests DIABETES MELLITUS per A.D.A. criteria. Potassium [Moles/Vol] 3.9 mmol/L 3.5-5.1 [facility] Sodium [Moles/Vol] 138 mmol/L 136-145 [facility] WBC (Bld) [#/Vol] 7.4 10*3/uL 4.4-11.0 [facility] Blood erythrocytes count (nu mber/volume)Ordered By: Lizet Linares on 12-22-2022 RBC (Bld) [#/Vol] 3.75 10*6/uL 4.2-5.4 [facility] Blood hemoglobin measurement (mass/volume)Ordered By: Lizet Linares on 12-22-2022 Hemoglobin (Bld) [Mass/Vol] 10.6 g/dL 12.0-15.0 [facility] Blood platelet mean volumeOr dered By: Lizet Linares on 12-22-2022 Platelet mean volume (Bld) [Entitic vol] 9.7 fL 6.2-12.0 [facility] Determination of erythrocyte mean corpuscular volume (MCV)Ordered By: Lizet Linares on 12-22-2022 MCV (RBC) [Entitic vol] 92.0 fL 81-[address] [facility] Hematocrit Auto (Bld) [Volum e fraction]Ordered By: Lizet Linares on 12-22-2022 Hematocrit (Bld) [Volume fraction] 34.5 % 37-47 [facility] - Chemistry and C hemistry - challengeOrdered By: Lizet Linares on 12-22-2022 CO2 [Moles/Vol] 26.0 mmol/L 21.0-32.0 [facility] Urea nitrogen/Creatinine [Mass ratio] 23.8 mg/mg 10-20 [facility] - Hematology and Cell countsOrdered By: Lizet Linares on 12-22-2022 Erythrocyte distribution width (RBC) [Entitic vol] 44.8 fL 35.1-43.9 [facility] Erythrocyte distribution width (RBC) [Ratio] 13.4 % 11.6-14.6 [facility] MCH (RBC) [Entitic mass] 28.3 pg 27.0-32.0 [facility] MCHC Auto (RBC) [Mass/Vol]Or dered By: Lizet Linares on 12-22-2022 MCHC (RBC) [Mass/Vol] 30.7 g/dL 32-36 [facility] No Panel InformationOrdered By: Lizet Linares on 12-22-2022 Estimated GFR (MDRD) Amer 72 mL/min >60 [facility] Comment on above: GFR Calc Estimated GFR (MDRD) Non-Af Amer 60 mL/min >60 [facility] Comment on above: Non- GFR Calc 28.3 pg 27.0-32.0 [facility] 13.4 % 11.6-14.6 [facility] 44.8 fl 35.1-43.9 [facility] 60 mL/min >60 [facility] 72 mL/min >60 [facility] 23.8 RATIO 10-20 [facility] 26.0 mmol/L 21.0-32.0 [facility] Platelets bldOrdered By: Bart Linares on 12-22-2022 Platelets (Bld) [#/Vol] 293 10*3/uL 150-450 [facility] Serum or plasma calcium tai urement (mass/volume)Ordered By: Lizet Linares on 12-22-2022 Calcium [Mass/Vol] 8.8 mg/dL 8.5-10.1 [facility] Serum or plasma creatinine m easurement (mass/volume)Ordered By: Lizet Linares on 12-22-2022 Creatinine [Mass/Vol] 1.01 mg/dL 0.55-1.02 [facility] Comment on above: The validity of the calculated GFR & GFRAA in patients over 70 years has not been determined. Clinical correlation is essential. Serum or plasma urea nitroge n measurement (mass/volume)Ordered By: Lizet Linares on 12-22-2022 Urea nitrogen [Mass/Vol] 24 mg/dL 7-18 [facility] Thin prep Papanicolaou smear with manual screeningOrdered By: Lizet Linares on 12-22-2022 Thin prep Papanicolaou smear with manual screening 8 5-15 [facility] Basophil percentageOrdered B y: Lizet Linares on 12-14-2022 Basophil percentage 170 mg/dL 74-106 [facility] Basophil percentage 139 mmol/L 136-145 [facility] Basophil percentage 4.1 mmol/L 3.5-5.1 [facility] Basophil percentage 104 mmol/L 98-107 [facility] Chloride [Moles/Vol] 104 mmol/L 98-107 [facility] Glucose [Mass/Vol] 170 mg/dL 74-106 [facility] Comment on above: Fasting Glucose resu lt greater than or equal to 126 mg/dL suggests DIABETES MELLITUS per A.D.A. criteria. Potassium [Moles/Vol] 4.1 mmol/L 3.5-5.1 [facility] Sodium [Moles/Vol] 139 mmol/L 136-145 [facility] Laboratory - Chemistry and C hemistry - challengeOrdered By: Lizet Linares on 12-14-2022 CO2 [Moles/Vol] 27.0 mmol/L 21.0-32.0 [facility] Urea nitrogen/Creatinine [Mass ratio] 24.8 mg/mg 08-13 [facility] No Panel InformationOrdered By: Lizet Linares on 12-14-2022 Estimated GFR (MDRD) Amer 72 mL/min >60 [facility] Comment on above: GFR Calc Estimated GFR (MDRD) Non-Af Amer 60 mL/min >60 [facility] Comment on above: Non- GFR Calc 60 mL/min >60 [facility] 72 mL/min >60 [facility] 24.8 RATIO 08-13 [facility] 27.0 mmol/L 21.0-32.0 [facility] Serum or plasma calcium tai urement (mass/volume)Ordered By: Lizet Linares on 12-14-2022 Calcium [Mass/Vol] 9.0 mg/dL 8.5-10.1 [facility] Serum or plasma creatinine m easurement (mass/volume)Ordered By: Lizet Linares on 12-14-2022 Creatinine [Mass/Vol] 1.01 mg/dL 0.55-1.02 [facility] Comment on above: The validity of the calculated GFR & GFRAA in patients over 70 years has not been determined. Clinical correlation is essential. Serum or plasma urea nitroge n measurement (mass/volume)Ordered By: Lizet Linares on 12-14-2022 Urea nitrogen [Mass/Vol] 25 mg/dL 7-18 [facility] Thin prep Papanicolaou smear with manual screeningOrdered By: Lizet Linares on 12-14-2022 Thin prep Papanicolaou smear with manual screening 8 5-15 [facility] Basophil percentageOrdered B y: Lizet Linares on 12-08-2022 Basophil percentage 107 mg/dL 74-106 [facility] Basophil percentage 141 mmol/L 136-145 [facility] Basophil percentage 4.5 mmol/L 3.5-5.1 [facility] Basophil percentage 108 mmol/L 98-107 [facility] Basophils (Bld) [#/Vol] 6.6 10*3/uL 4.4-11.0 [facility] Chloride [Moles/Vol] 108 mmol/L 98-107 [facility] Glucose [Mass/Vol] 107 mg/dL 74-106 [facility] Comment on above: Fasting Glucose resu lt from 100 to 125 mg/dL suggests IMPAIRED HOMEOSTASIS per A.D.A. criteria. Potassium [Moles/Vol] 4.5 mmol/L 3.5-5.1 [facility] Sodium [Moles/Vol] 141 mmol/L 136-145 [facility] WBC (Bld) [#/Vol] 6.6 10*3/uL 4.4-11.0 [facility] Blood erythrocytes count (nu mber/volume)Ordered By: Lizet Linares on 12-08-2022 RBC (Bld) [#/Vol] 3.93 10*6/uL 4.2-5.4 [facility] Blood hemoglobin measurement (mass/volume)Ordered By: Lizet Linares on 12-08-2022 Hemoglobin (Bld) [Mass/Vol] 11.3 g/dL 12.0-15.0 [facility] Blood platelet mean volumeOr dered By: Lizet Linares on 12-08-2022 Platelet mean volume (Bld) [Entitic vol] 9.7 fL 6.2-12.0 [facility] Determination of erythrocyte mean corpuscular volume (MCV)Ordered By: Lizet Linares on 12-08-2022 MCV (RBC) [Entitic vol] 90.8 fL 81-[address] [facility] Hematocrit Auto (Bld) [Volum e fraction]Ordered By: Lizet Linares on 12-08-2022 Hematocrit (Bld) [Volume fraction] 35.7 % 37-47 [facility] Laboratory - Chemistry and C hemistry - challengeOrdered By: Lizet Linares on 12-08-2022 CO2 [Moles/Vol] 25.0 mmol/L 21.0-32.0 [facility] Urea nitrogen/Creatinine [Mass ratio] 26.2 mg/mg 10- [facility] Laboratory - Hematology and Cell countsOrdered By: Lizet Linares on 12-08-2022 Erythrocyte distribution width (RBC) [Entitic vol] 45.8 fL 35.1-43.9 [facility] Erythrocyte distribution width (RBC) [Ratio] 13.8 % 11.6-14.6 [facility] MCH (RBC) [Entitic mass] 28.8 pg 27.0-32.0 [facility] MCHC Auto (RBC) [Mass/Vol]Or dered By: Lizet Linares on 12-08-2022 MCHC (RBC) [Mass/Vol] 31.7 g/dL 32-36 [facility] No Panel InformationOrdered By: Lizet Linares on 12-08-2022 Estimated GFR (MDRD) Amer 77 mL/min >60 [facility] Comment on above: GFR Calc Estimated GFR (MDRD) Non-Af Amer 64 mL/min >60 [facility] Comment on above: Non- GFR Calc 28.8 pg 27.0-32.0 [facility] 13.8 % 11.6-14.6 [facility] 45.8 fl 35.1-43.9 [facility] 64 mL/min >60 [facility] 77 mL/min >60 [facility] 26.2 RATIO 08-13 [facility] 25.0 mmol/L 21.0-32.0 [facility] Platelets bldOrdered By: Bart Linares on 12-08-2022 Platelets (Bld) [#/Vol] 287 10*3/uL 150-450 [facility] Serum or plasma calcium tai urement (mass/volume)Ordered By: Lizet Linares on 12-08-2022 Calcium [Mass/Vol] 9.0 mg/dL 8.5-10.1 [facility] Serum or plasma creatinine m easurement (mass/volume)Ordered By: Lizet Linares on 12-08-2022 Creatinine [Mass/Vol] 0.95 mg/dL 0.55-1.02 [facility] Comment on above: The validity of the calculated GFR & GFRAA in patients over 70 years has not been determined. Clinical correlation is essential. Serum or plasma urea nitroge n measurement (mass/volume)Ordered By: Lizet Linares on 12-08-2022 Urea nitrogen [Mass/Vol] 25 mg/dL 7-18 [facility] Thin prep Papanicolaou smear with manual screeningOrdered By: Lizet Linares on 12-08-2022 Thin prep Papanicolaou smear with manual screening 8 5-15 [facility] Basophil percentageOrdered B y: Lizet Linares on 11-24-2022 Basophil percentage 208 mg/dL 74-106 [facility] Basophil percentage 141 mmol/L 136-145 [facility] Basophil percentage 4.2 mmol/L 3.5-5.1 [facility] Basophil percentage 108 mmol/L 98-107 [facility] Basophils (Bld) [#/Vol] 6.2 10*3/uL 4.4-11.0 [facility] Chloride [Moles/Vol] 108 mmol/L 98-107 [facility] Glucose [Mass/Vol] 208 mg/dL 74-106 [facility] Comment on above: Glucose result great er than or equal to 200 mg/dLsuggests DIABETES MELLITUS per A.D.A. criteria. Potassium [Moles/Vol] 4.2 mmol/L 3.5-5.1 [facility] Sodium [Moles/Vol] 141 mmol/L 136-145 [facility] WBC (Bld) [#/Vol] 6.2 10*3/uL 4.4-11.0 [facility] Blood erythrocytes count (nu mber/volume)Ordered By: Lizet Linares on 11-24-2022 RBC (Bld) [#/Vol] 3.94 10*6/uL 4.2-5.4 [facility] Blood hemoglobin measurement (mass/volume)Ordered By: Lizet Linares on 11-24-2022 Hemoglobin (Bld) [Mass/Vol] 11.0 g/dL 12.0-15.0 [facility] Blood platelet mean volumeOr dered By: Lizet Linares on 11-24-2022 Platelet mean volume (Bld) [Entitic vol] 10.0 fL 6.2-12.0 [facility] Determination of erythrocyte mean corpuscular volume (MCV)Ordered By: Lizet Linares on 11-24-2022 MCV (RBC) [Entitic vol] 90.9 fL 81-[address] [facility] Hematocrit Auto (Bld) [Volum e fraction]Ordered By: Lizet Linares on 11-24-2022 Hematocrit (Bld) [Volume fraction] 35.8 % 37-47 [facility] Laboratory - Chemistry and C hemistry - challengeOrdered By: christahartlandnatasha Linraes on 11-24-2022 CO2 [Moles/Vol] 26.0 mmol/L 21.0-32.0 [facility] Urea nitrogen/Creatinine [Mass ratio] 17.6 mg/mg 10-20 [facility] Laboratory - Hematology and Cell countsOrdered By: Lizet Linares on 11-24-2022 Erythrocyte distribution width (RBC) [Entitic vol] 46.9 fL 35.1-43.9 [facility] Erythrocyte distribution width (RBC) [Ratio] 14.0 % 11.6-14.6 [facility] MCH (RBC) [Entitic mass] 27.9 pg 27.0-32.0 [facility] MCHC Auto (RBC) [Mass/Vol]Or dered By: Lizet Linares on 11-24-2022 MCHC (RBC) [Mass/Vol] 30.7 g/dL 32-36 [facility] No Panel InformationOrdered By: Lizet Linares on 01-31-2023 Estimated GFR (MDRD) Amer 71 mL/min >60 [facility] Comment on above: GFR Calc Estimated GFR (MDRD) Non-Af Amer 59 mL/min >60 [facility] Comment on above: Non- GFR Calc 27.9 pg 27.0-32.0 [facility] 14.0 % 11.6-14.6 [facility] 46.9 fl 35.1-43.9 [facility] 59 mL/min >60 [facility] 71 mL/min >60 [facility] 17.6 RATIO 10-20 [facility] 26.0 mmol/L 21.0-32.0 [facility] Platelets bldOrdered By: Bart Linares on 11-24-2022 Platelets (Bld) [#/Vol] 270 10*3/uL 150-450 [facility] Serum or plasma calcium tai urement (mass/volume)Ordered By: Lizet Linares on 11-24-2022 Calcium [Mass/Vol] 8.7 mg/dL 8.5-10.1 [facility] Serum or plasma creatinine m easurement (mass/volume)Ordered By: Lizet Linares on 11-24-2022 Creatinine [Mass/Vol] 1.02 mg/dL 0.55-1.02 [facility] Comment on above: The validity of the calculated GFR & GFRAA in patients over 70 years has not been determined. Clinical correlation is essential. Serum or plasma urea nitroge n measurement (mass/volume)Ordered By: Lizet Linares on 11-24-2022 Urea nitrogen [Mass/Vol] 18 mg/dL 7-18 [facility] Thin prep Papanicolaou smear with manual screeningOrdered By: Lizet Linares on 11-24-2022 Thin prep Papanicolaou smear with manual screening 7 5-15 [facility] Basophil percentageOrdered B y: Lizet Linares on 11-10-2022 Basophil percentage 189 mg/dL 74-106 [facility] Basophil percentage 136 mmol/L 136-145 [facility] Basophil percentage 4.4 mmol/L 3.5-5.1 [facility] Basophil percentage 101 mmol/L 98-107 [facility] Basophils (Bld) [#/Vol] 7.5 10*3/uL 4.4-11.0 [facility] Chloride [Moles/Vol] 101 mmol/L 98-107 [facility] Glucose [Mass/Vol] 189 mg/dL 74-106 [facility] Comment on above: Fasting Glucose resu lt greater than or equal to 126 mg/dL suggests DIABETES MELLITUS per A.D.A. criteria. Potassium [Moles/Vol] 4.4 mmol/L 3.5-5.1 [facility] Comment on above: Slight Hemolysis, Re sult may be falsely increased. Sodium [Moles/Vol] 136 mmol/L 136-145 [facility] WBC (Bld) [#/Vol] 7.5 10*3/uL 4.4-11.0 [facility] Blood erythrocytes count (nu mber/volume)Ordered By: Lizet Linares on 11-10-2022 RBC (Bld) [#/Vol] 4.02 10*6/uL 4.2-5.4 [facility] Blood hemoglobin measurement (mass/volume)Ordered By: Lizet Linares on 11-10-2022 Hemoglobin (Bld) [Mass/Vol] 11.6 g/dL 12.0-15.0 [facility] Blood platelet mean volumeOr dered By: Lizet Linares on 11-10-2022 Platelet mean volume (Bld) [Entitic vol] 10.0 fL 6.2-12.0 [facility] Determination of erythrocyte mean corpuscular volume (MCV)Ordered By: Lizet Linares on 11-10-2022 MCV (RBC) [Entitic vol] 88.1 fL 81-[address] [facility] Hematocrit Auto (Bld) [Volum e fraction]Ordered By: Lizet Linares on 11-10-2022 Hematocrit (Bld) [Volume fraction] 35.4 % 37-47 [facility] Laboratory - Chemistry and C hemistry - challengeOrdered By: Lizet Linares on 11-10-2022 CO2 [Moles/Vol] 27.0 mmol/L 21.0-32.0 [facility] Urea nitrogen/Creatinine [Mass ratio] 22.6 mg/mg 10-20 [facility] Laboratory - Hematology and Cell countsOrdered By: Lizet Linares on 11-10-2022 Erythrocyte distribution width (RBC) [Entitic vol] 44.0 fL 35.1-43.9 [facility] Erythrocyte distribution width (RBC) [Ratio] 13.6 % 11.6-14.6 [facility] MCH (RBC) [Entitic mass] 28.9 pg 27.0-32.0 [facility] MCHC Auto (RBC) [Mass/Vol]Or dered By: Lizet Linares on 11-10-2022 MCHC (RBC) [Mass/Vol] 32.8 g/dL 32-36 [facility] No Panel InformationOrdered By: Lizet Linares on 11-10-2022 Estimated GFR (MDRD) Amer 68 mL/min >60 [facility] Comment on above: GFR Calc Estimated GFR (MDRD) Non-Af Amer 56 mL/min >60 [facility] Comment on above: Non- GFR Calc 28.9 pg 27.0-32.0 [facility] 13.6 % 11.6-14.6 [facility] 44.0 fl 35.1-43.9 [facility] 56 mL/min >60 [facility] 68 mL/min >60 [facility] 22.6 RATIO 10-20 [facility] 27.0 mmol/L 21.0-32.0 [facility] Platelets bldOrdered By: Bart Linares on 11-10-2022 Platelets (Bld) [#/Vol] 292 10*3/uL 150-450 [facility] Serum or plasma calcium tai urement (mass/volume)Ordered By: Lizet Linares on 11-10-2022 Calcium [Mass/Vol] 8.9 mg/dL 8.5-10.1 [facility] Serum or plasma creatinine m easurement (mass/volume)Ordered By: Lizet Linares on 11-10-2022 Creatinine [Mass/Vol] 1.06 mg/dL 0.55-1.02 [facility] Comment on above: The validity of the calculated GFR & GFRAA in patients over 70 years has not been determined. Clinical correlation is essential. Serum or plasma urea nitroge n measurement (mass/volume)Ordered By: Lizet Linares on 11-10-2022 Urea nitrogen [Mass/Vol] 24 mg/dL 7-18 [facility] Thin prep Papanicolaou smear with manual screeningOrdered By: Lizet Linares on 11-10-2022 Thin prep Papanicolaou smear with manual screening 8 5-15 [facility] Whole blood hemoglobin A1c/t otal hemoglobin ratio (mass fraction)Ordered By: Lizet Linares on 11-10-2022 HbA1c (Bld) [Mass fraction] 11.3 % 3.8-5.6 [facility] Comment on above: Normal < 5.7 % Predi abetic 5.7 - 6.4 % Diabetic >or= 6.5 % Please note range changes. Absolute lymphocyte countOrd ered By: Dr. Camp on 11-05-2022 Lymphocytes Auto (Unsp spec) [#/Vol] 4.02 10*3/uL 0.83-4.51 [facility] Basophil percentageOrdered B y: Dr. Camp on 11-05-2022 Basophil percentage 441 mg/dL 74-106 [facility] Basophil percentage 133 mmol/L 136-145 [facility] Basophil percentage 4.7 mmol/L 3.5-5.1 [facility] Basophil percentage 99 mmol/L 98-107 [facility] Basophils (Bld) [#/Vol] 9.1 10*3/uL 4.4-11.0 [facility] Basophils (Bld) [#/Vol] 4.4 10*3/uL 2.0-7.7 [facility] Basophils/100 WBC (Bld) 0.8 % 0-[address] [facility] Basophils/100 WBC (Bld) 48.7 % 47-[address] [facility] Basophils/100 WBC (Bld) 1.7 % 0-[address] [facility] Chloride [Moles/Vol] 99 mmol/L 98-107 [facility] Eosinophils/100 WBC (Bld) 1.7 % 0-5 [facility] Glucose [Mass/Vol] 441 mg/dL 74-106 [facility] Comment on above: Glucose result great er than or equal to 200 mg/dLsuggests DIABETES MELLITUS per A.D.A. criteria. Neutrophils (Bld) [#/Vol] 4.4 10*3/uL 2.0-7.7 [facility] Neutrophils/100 WBC (Bld) 48.7 % 47-70 [facility] Potassium [Moles/Vol] 4.7 mmol/L 3.5-5.1 [facility] Sodium [Moles/Vol] 133 mmol/L 136-145 [facility] WBC (Bld) [#/Vol] 9.1 10*3/uL 4.4-11.0 [facility] Blood erythrocytes count (nu mber/volume)Ordered By: Dr. Camp on 11-05-2022 RBC (Bld) [#/Vol] 4.28 10*6/uL 4.2-5.4 [facility] Blood hemoglobin measurement (mass/volume)Ordered By: Dr. Camp on 11-05-2022 Hemoglobin (Bld) [Mass/Vol] 12.1 g/dL 12.0-15.0 [facility] Blood lymphocytes/100 leukoc ytesOrdered By: Dr. Camp on 11-05-2022 Lymphocytes/100 WBC (Bld) 44.2 % 19-41 [facility] Blood monocytes/100 leukocyt esOrdered By: Dr. Camp on 11-05-2022 Monocytes/100 WBC (Bld) 4.2 % 0-[address] [facility] Blood platelet mean volumeOr dered By: Dr. Camp on 11-05-2022 Platelet mean volume (Bld) [Entitic vol] 9.7 fL 6.2-12.0 [facility] Determination of erythrocyte mean corpuscular volume (MCV)Ordered By: Dr. Camp on 11-05-2022 MCV (RBC) [Entitic vol] 86.0 fL 81-[address] [facility] Hematocrit Auto (Bld) [Volum e fraction]Ordered By: Dr. Camp on 11-05-2022 Hematocrit (Bld) [Volume fraction] 36.8 % 37-47 [facility] Laboratory - Chemistry and C hemistry - challengeOrdered By: Dr. Camp on 11-05-2022 CO2 [Moles/Vol] 27.0 mmol/L 21.0-32.0 [facility] Urea nitrogen/Creatinine [Mass ratio] 18.8 mg/mg 10-20 [facility] Laboratory - Hematology and Cell countsOrdered By: Dr. Camp on 11-05-2022 Erythrocyte distribution width (RBC) [Entitic vol] 42.0 fL 35.1-43.9 [facility] Erythrocyte distribution width (RBC) [Ratio] 13.3 % 11.6-14.6 [facility] Immature granulocytes/100 WBC (Bld) 0.400 % 0.0-0.9 [facility] Comment on above: IG% - Immature Granu locytes (promyelocytes, myelocytes and metamyelocytes) > 1% indicates that a LEFT SHIFT is Present. MCH (RBC) [Entitic mass] 28.3 pg 27.0-32.0 [facility] Nucleated RBC/100 WBC (Bld) [Ratio] 0.2 % 0-5 [facility] MCHC Auto (RBC) [Mass/Vol]Or dered By: Dr. Camp on 11-05-2022 MCHC (RBC) [Mass/Vol] 32.9 g/dL 32-36 [facility] No Panel InformationOrdered By: Dr. Camp on 11-05-2022 Troponin I High Sensitivity 8 pg/mL 3.0-54.0 [facility] Comment on above: Please Note: New Carolann t Units and Gender Specific Reference Ranges. For more information see Policy Stat Procedure [place] High Sensitivity Troponin (TNIH) and attachments. 8 pg/mL 3.0-54.0 [facility] Estimated Creatinine Clearance Calc 33.99 ml/min [facility] Estimated GFR (MDRD) Amer 55 mL/min >60 [facility] Comment on above: GFR Calc Estimated GFR (MDRD) Non-Af Amer 45 mL/min >60 [facility] Comment on above: Non- GFR Calc 28.3 pg 27.0-32.0 [facility] 13.3 % 11.6-14.6 [facility] 42.0 fl 35.1-43.9 [facility] 0.400 % 0.0-0.9 [facility] 0.2 % 0-5 [facility] 45 mL/min >60 [facility] 55 mL/min >60 [facility] 33.99 ml/min [facility] 18.8 RATIO 10-20 [facility] 27.0 mmol/L 21.0-32.0 [facility] Platelets bldOrdered By: Dr. Camp on 11-05-2022 Platelets (Bld) [#/Vol] 290 10*3/uL 150-450 [facility] Serum or plasma calcium tai urement (mass/volume)Ordered By: Dr. Camp on 11-05-2022 Calcium [Mass/Vol] 9.5 mg/dL 8.5-10.1 [facility] Serum or plasma creatinine m easurement (mass/volume)Ordered By: Dr. Camp on 11-05-2022 Creatinine [Mass/Vol] 1.28 mg/dL 0.55-1.02 [facility] Comment on above: The validity of the calculated GFR & GFRAA in patients over 70 years has not been determined. Clinical correlation is essential. Serum or plasma urea nitroge n measurement (mass/volume)Ordered By: Dr. Camp on 11-05-2022 Urea nitrogen [Mass/Vol] 24 mg/dL 7-18 [facility] Thin prep Papanicolaou smear with manual screeningOrdered By: Dr. Camp on 11-05-2022 Thin prep Papanicolaou smear with manual screening 7 5-15 [facility] Basophil percentageOrdered B y: Lizet Linares on 10-30-2022 Basophil percentage 359 mg/dL 74-106 [facility] Basophil percentage 134 mmol/L 136-145 [facility] Basophil percentage 4.2 mmol/L 3.5-5.1 [facility] Basophil percentage 100 mmol/L 98-107 [facility] Chloride [Moles/Vol] 100 mmol/L 98-107 [facility] Glucose [Mass/Vol] 359 mg/dL 74-106 [facility] Comment on above: Glucose result great er than or equal to 200 mg/dLsuggests DIABETES MELLITUS per A.D.A. criteria. Potassium [Moles/Vol] 4.2 mmol/L 3.5-5.1 [facility] Sodium [Moles/Vol] 134 mmol/L 136-145 [facility] Laboratory - Chemistry and C hemistry - challengeOrdered By: Lizet Linares on 10-30-2022 CO2 [Moles/Vol] 28.0 mmol/L 21.0-32.0 [facility] Urea nitrogen/Creatinine [Mass ratio] 23.1 mg/mg 10-20 [facility] No Panel InformationOrdered By: Lizet Linares on 10-30-2022 Estimated GFR (MDRD) Amer 54 mL/min >60 [facility] Comment on above: GFR Calc Estimated GFR (MDRD) Non-Af Amer 45 mL/min >60 [facility] Comment on above: Non- GFR Calc 45 mL/min >60 [facility] 54 mL/min >60 [facility] 23.1 RATIO 10-20 [facility] 28.0 mmol/L 21.0-32.0 [facility] Serum or plasma calcium tai urement (mass/volume)Ordered By: Lizet Linares on 10-30-2022 Calcium [Mass/Vol] 8.9 mg/dL 8.5-10.1 [facility] Serum or plasma creatinine m easurement (mass/volume)Ordered By: Lziet Linares on 10-30-2022 Creatinine [Mass/Vol] 1.30 mg/dL 0.55-1.02 [facility] Comment on above: The validity of the calculated GFR & GFRAA in patients over 70 years has not been determined. Clinical correlation is essential. Serum or plasma urea nitroge n measurement (mass/volume)Ordered By: Lizet Linares on 10-30-2022 Urea nitrogen [Mass/Vol] 30 mg/dL 7-18 [facility] Thin prep Papanicolaou smear with manual screeningOrdered By: Lizet Linares on 10-30-2022 Thin prep Papanicolaou smear with manual screening 6 5-15 [facility] Basophil percentageOrdered B y: Lizet Linares on 10-27-2022 Basophil percentage 295 mg/dL 74-106 [facility] Basophil percentage 134 mmol/L 136-145 [facility] Basophil percentage 4.3 mmol/L 3.5-5.1 [facility] Basophil percentage 100 mmol/L 98-107 [facility] Basophils (Bld) [#/Vol] 7.7 10*3/uL 4.4-11.0 [facility] Chloride [Moles/Vol] 100 mmol/L 98-107 [facility] Glucose [Mass/Vol] 295 mg/dL 74-106 [facility] Comment on above: Glucose result great er than or equal to 200 mg/dLsuggests DIABETES MELLITUS per A.D.A. criteria. Potassium [Moles/Vol] 4.3 mmol/L 3.5-5.1 [facility] Sodium [Moles/Vol] 134 mmol/L 136-145 [facility] WBC (Bld) [#/Vol] 7.7 10*3/uL 4.4-11.0 [facility] Blood erythrocytes count (nu mber/volume)Ordered By: Lizet Linares on 10-27-2022 RBC (Bld) [#/Vol] 4.02 10*6/uL 4.2-5.4 [facility] Blood hemoglobin measurement (mass/volume)Ordered By: Lizet Linares on 10-27-2022 Hemoglobin (Bld) [Mass/Vol] 11.4 g/dL 12.0-15.0 [facility] Blood platelet mean volumeOr dered By: Lizet Linares on 10-27-2022 Platelet mean volume (Bld) [Entitic vol] 10.4 fL 6.2-12.0 [facility] Determination of erythrocyte mean corpuscular volume (MCV)Ordered By: Lizet Linares on 10-27-2022 MCV (RBC) [Entitic vol] 88.1 fL 81-[address] [facility] Hematocrit Auto (Bld) [Volum e fraction]Ordered By: Lizet Linares on 10-27-2022 Hematocrit (Bld) [Volume fraction] 35.4 % 37-47 [facility] Laboratory - Chemistry and C hemistry - challengeOrdered By: Lizet Linares on 10-27-2022 CO2 [Moles/Vol] 29.0 mmol/L 21.0-32.0 [facility] Urea nitrogen/Creatinine [Mass ratio] 24.8 mg/mg 10-20 [facility] Laboratory - Hematology and Cell countsOrdered By: Lizet Linares on 10-27-2022 Erythrocyte distribution width (RBC) [Entitic vol] 44.1 fL 35.1-43.9 [facility] Erythrocyte distribution width (RBC) [Ratio] 13.7 % 11.6-14.6 [facility] MCH (RBC) [Entitic mass] 28.4 pg 27.0-32.0 [facility] MCHC Auto (RBC) [Mass/Vol]Or dered By: Lizet Linares on 10-27-2022 MCHC (RBC) [Mass/Vol] 32.2 g/dL 32-36 [facility] No Panel InformationOrdered By: Lizet Linares on 10-27-2022 Estimated GFR (MDRD) Amer 61 mL/min >60 [facility] Comment on above: GFR Calc Estimated GFR (MDRD) Non-Af Amer 50 mL/min >60 [facility] Comment on above: Non- GFR Calc 28.4 pg 27.0-32.0 [facility] 13.7 % 11.6-14.6 [facility] 44.1 fl 35.1-43.9 [facility] 50 mL/min >60 [facility] 61 mL/min >60 [facility] 24.8 RATIO 10-20 [facility] 29.0 mmol/L 21.0-32.0 [facility] Platelets bldOrdered By: Bart Linares on 10-27-2022 Platelets (Bld) [#/Vol] 299 10*3/uL 150-450 [facility] Serum or plasma calcium tai urement (mass/volume)Ordered By: Lizet Linares on 10-27-2022 Calcium [Mass/Vol] 9.0 mg/dL 8.5-10.1 [facility] Serum or plasma creatinine m easurement (mass/volume)Ordered By: Lizet Linares on 10-27-2022 Creatinine [Mass/Vol] 1.17 mg/dL 0.55-1.02 [facility] Comment on above: The validity of the calculated GFR & GFRAA in patients over 70 years has not been determined. Clinical correlation is essential. Serum or plasma urea nitroge n measurement (mass/volume)Ordered By: Lizet Linares on 10-27-2022 Urea nitrogen [Mass/Vol] 29 mg/dL 7-18 [facility] Thin prep Papanicolaou smear with manual screeningOrdered By: Lizet Linares on 10-27-2022 Thin prep Papanicolaou smear with manual screening 5 5-15 [facility] Basophil percentageOrdered B y: Lizet Linares on 10-13-2022 Basophil percentage 332 mg/dL 74-106 [facility] [facility] Basophil percentage 134 mmol/L 136-145 [facility] Basophil percentage 4.4 mmol/L 3.5-5.1 [facility] Basophil percentage 96 mmol/L 98-107 [facility] Basophils (Bld) [#/Vol] 6.8 10*3/uL 4.4-11.0 [facility] Chloride [Moles/Vol] 96 mmol/L 98-107 [facility] Glucose [Mass/Vol] 332 mg/dL 74-106 [facility] Comment on above: Glucose result great er than or equal to 200 mg/dLsuggests DIABETES MELLITUS per A.D.A. criteria. Potassium [Moles/Vol] 4.4 mmol/L 3.5-5.1 [facility] Sodium [Moles/Vol] 134 mmol/L 136-145 [facility] WBC (Bld) [#/Vol] 6.8 10*3/uL 4.4-11.0 [facility] Blood erythrocytes count (nu mber/volume)Ordered By: Lizet Linares on 10-13-2022 RBC (Bld) [#/Vol] 4.15 10*6/uL 4.2-5.4 [facility] Blood hemoglobin measurement (mass/volume)Ordered By: Liezt Linares on 10-13-2022 Hemoglobin (Bld) [Mass/Vol] 11.8 g/dL 12.0-15.0 [facility] Blood platelet mean volumeOr dered By: Lizet Linares on 10-13-2022 Platelet mean volume (Bld) [Entitic vol] 10.0 fL 6.2-12.0 [facility] Determination of erythrocyte mean corpuscular volume (MCV)Ordered By: Lizet Linares on 10-13-2022 MCV (RBC) [Entitic vol] 87.5 fL 81-[address] [facility] Hematocrit Auto (Bld) [Volum e fraction]Ordered By: Lizet Linares on 10-13-2022 Hematocrit (Bld) [Volume fraction] 36.3 % 37-47 [facility] Laboratory - Chemistry and C hemistry - challengeOrdered By: Lizet Linares on 10-13-2022 CO2 [Moles/Vol] 29.0 mmol/L 21.0-32.0 [facility] Urea nitrogen/Creatinine [Mass ratio] 15.2 mg/mg 10-20 [facility] Laboratory - Hematology and Cell countsOrdered By: Lizet Linares on 10-13-2022 Erythrocyte distribution width (RBC) [Entitic vol] 43.6 fL 35.1-43.9 [facility] Erythrocyte distribution width (RBC) [Ratio] 13.5 % 11.6-14.6 [facility] MCH (RBC) [Entitic mass] 28.4 pg 27.0-32.0 [facility] MCHC Auto (RBC) [Mass/Vol]Or dered By: Lizet Linares on 10-13-2022 MCHC (RBC) [Mass/Vol] 32.5 g/dL 32-36 [facility] No Panel InformationOrdered By: Lizet Linares on 10-13-2022 Estimated GFR (MDRD) Amer 50 mL/min >60 [facility] Comment on above: GFR Calc Estimated GFR (MDRD) Non-Af Amer 42 mL/min >60 [facility] Comment on above: Non- GFR Calc 28.4 pg 27.0-32.0 [facility] 13.5 % 11.6-14.6 [facility] 43.6 fl 35.1-43.9 [facility] 42 mL/min >60 [facility] 50 mL/min >60 [facility] 15.2 RATIO 10-20 [facility] 29.0 mmol/L 21.0-32.0 [facility] Platelets bldOrdered By: Bart manjindernatasha Linares on 10-13-2022 Platelets (Bld) [#/Vol] 274 10*3/uL 150-450 [facility] Serum or plasma calcium tai urement (mass/volume)Ordered By: Lizet Linares on 10-13-2022 Calcium [Mass/Vol] 9.0 mg/dL 8.5-10.1 [facility] Serum or plasma creatinine m easurement (mass/volume)Ordered By: Lizet Linares on 10-13-2022 Creatinine [Mass/Vol] 1.38 mg/dL 0.55-1.02 [facility] Comment on above: The validity of the calculated GFR & GFRAA in patients over 70 years has not been determined. Clinical correlation is essential. Serum or plasma urea nitroge n measurement (mass/volume)Ordered By: Lizet Linares on 10-13-2022 Urea nitrogen [Mass/Vol] 21 mg/dL 7-18 [facility] Thin prep Papanicolaou smear with manual screeningOrdered By: Lizet Linares on 10-13-2022 Thin prep Papanicolaou smear with manual screening 9 5-15 [facility] Culture, urineOrdered By: Rae Hamilton on 10-11-2022 Bacteria identified Cx Nom (U) Culture exhibits no growth. [facility] Absolute lymphocyte countOrd ered By: Tip Hamilton on 10-09-2022 Lymphocytes Auto (Unsp spec) [#/Vol] 4.14 10*3/uL 0.83-4.51 [facility] Basophil percentageOrdered B y: Tip Hamilton on 10-09-2022 Basophil percentage 25-50 SEEN /hpf 0-5 [facility] Basophil percentage 272 mg/dL 74-106 [facility] Basophil percentage 6.9 g/dL 6.4-8.2 [facility] Basophil percentage 0.30 mg/dL 0.20-1.00 [facility] Basophil percentage 134 mmol/L 136-145 [facility] Basophil percentage 4.8 mmol/L 3.5-5.1 [facility] Basophil percentage 100 mmol/L 98-107 [facility] Basophils (Bld) [#/Vol] 9.9 10*3/uL 4.4-11.0 [facility] Basophils (Bld) [#/Vol] 5.0 10*3/uL 2.0-7.7 [facility] Basophils/100 WBC (Bld) 0.7 % 0-[address] [facility] Basophils/100 WBC (Bld) 50.3 % 47-[address] [facility] Basophils/100 WBC (Bld) 1.3 % 0-5 [facility] Bilirubin [Mass/Vol] 0.30 mg/dL 0.20-1.00 [facility] Comment on above: For patients on eltr ombopag therapy, use of [employer]ension [place] TBIL is not recommended. Chloride [Moles/Vol] 100 mmol/L 98-107 [facility] Eosinophils/100 WBC (Bld) 1.3 % 0-5 [facility] Glucose [Mass/Vol] 272 mg/dL 74-106 [facility] Comment on above: Glucose result great er than or equal to 200 mg/dLsuggests DIABETES MELLITUS per A.D.A. criteria. Neutrophils (Bld) [#/Vol] 5.0 10*3/uL 2.0-7.7 [facility] Neutrophils/100 WBC (Bld) 50.3 % 47-70 [facility] Potassium [Moles/Vol] 4.8 mmol/L 3.5-5.1 [facility] Protein [Mass/Vol] 6.9 g/dL 6.4-8.2 [facility] Sodium [Moles/Vol] 134 mmol/L 136-145 [facility] WBC (Bld) [#/Vol] 9.9 10*3/uL 4.4-11.0 [facility] Bilirubin Test strip Ql (U)O rdered By: Tip Hamilton on 10-09-2022 Bilirubin Ql (U) Negative Negative [facility] Blood erythrocytes count (nu mber/volume)Ordered By: Tip Hamilton on 10-09-2022 RBC (Bld) [#/Vol] 4.11 10*6/uL 4.2-5.4 [facility] Blood hemoglobin measurement (mass/volume)Ordered By: Tip Hamilton on 10-09-2022 Hemoglobin (Bld) [Mass/Vol] 11.5 g/dL 12.0-15.0 [facility] Blood lymphocytes/100 leukoc ytesOrdered By: Tip Hamilton on 10-09-2022 Lymphocytes/100 WBC (Bld) 41.9 % 19-41 [facility] Blood monocytes/100 leukocyt esOrdered By: Tip Hamilton on 10-09-2022 Monocytes/100 WBC (Bld) 5.5 % 0-[address] [facility] Blood platelet mean volumeOr dered By: Tip Hamilton on 10-09-2022 Platelet mean volume (Bld) [Entitic vol] 9.8 fL 6.2-12.0 [facility] Determination of erythrocyte mean corpuscular volume (MCV)Ordered By: Tip Hamilton on 10-09-2022 MCV (RBC) [Entitic vol] 86.9 fL 81-[address] [facility] Direct bilirubinOrdered By: Tip Hamilton on 10-09-2022 Bilirubin.direct [Mass/Vol] 0.11 mg/dL 0.00-0.30 [facility] Hematocrit Auto (Bld) [Volum e fraction]Ordered By: Tip Hamilton on 10-09-2022 Hematocrit (Bld) [Volume fraction] 35.7 % 37-47 [facility] Ketones Test strip Ql (U)Ord ered By: Tip Hamilton on 10-09-2022 Ketones Ql (U) Negative Negative [facility] Laboratory - Chemistry and C hemistry - challengeOrdered By: Tip Hamilton on 10-09-2022 ALP [Catalytic activity/Vol] 69 U/L 45-117 [facility] ALT [Catalytic activity/Vol] 25 U/L 13-56 [facility] CO2 [Moles/Vol] 29.0 mmol/L 21.0-32.0 [facility] Globulin (S) [Mass/Vol] 3.8 g/dL 2.2-4.[address] [facility] Lipase [Catalytic activity/Vol] 89 U/L 73-393 [facility] Urea nitrogen/Creatinine [Mass ratio] 21.0 mg/mg 10-20 [facility] Laboratory - Hematology and Cell countsOrdered By: Tip Hamilton on 10-09-2022 Erythrocyte distribution width (RBC) [Entitic vol] 44.0 fL 35.1-43.9 [facility] Erythrocyte distribution width (RBC) [Ratio] 13.9 % 11.6-14.6 [facility] Immature granulocytes/100 WBC (Bld) 0.300 % 0.0-0.9 [facility] Comment on above: IG% - Immature Granu locytes (promyelocytes, myelocytes and metamyelocytes) > 1% indicates that a LEFT SHIFT is Present. MCH (RBC) [Entitic mass] 28.0 pg 27.0-32.0 [facility] Nucleated RBC/100 WBC (Bld) [Ratio] 0 % 0-5 [facility] MCHC Auto (RBC) [Mass/Vol]Or dered By: Tip Hamilton on 10-09-2022 MCHC (RBC) [Mass/Vol] 32.2 g/dL 32-36 [facility] Mucus LM Ql (Urine sed)Order ed By: Tip Hamilton on 10-09-2022 Mucus Ql (Urine sed) 0 SEEN /hpf [facility] Nitrite Test strip Ql (U)Ord ered By: Tip Hamilton on 10-09-2022 Nitrite Ql (U) Negative Negative [facility] No Panel InformationOrdered By: Tip Hamilton on 10-09-2022 Estimated Creatinine Clearance Calc 35.09 ml/min [facility] Estimated GFR (MDRD) Amer 57 mL/min >60 [facility] Comment on above: GFR Calc Estimated GFR (MDRD) Non-Af Amer 47 mL/min >60 [facility] Comment on above: Non- GFR Calc 28.0 pg 27.0-32.0 [facility] 13.9 % 11.6-14.6 [facility] 44.0 fl 35.1-43.9 [facility] 0.300 % 0.0-0.9 [facility] 0 % 0-5 [facility] 47 mL/min >60 [facility] 57 mL/min >60 [facility] 35.09 ml/min [facility] 21.0 RATIO 10-20 [facility] 3.8 g/dL 2.2-4.2 [facility] 89 U/L 73-393 [facility] 69 U/L 45-117 [facility] 25 U/L 13-56 [facility] 29.0 mmol/L 21.0-32.0 [facility] Platelets bldOrdered By: Kali Hamilton on 10-09-2022 Platelets (Bld) [#/Vol] 286 10*3/uL 150-450 [facility] Protein Test strip Ql (U)Ord ered By: Tip Hamilton on 10-09-2022 Protein Ql (U) 15 mg/dl Negative [facility] Serum or plasma albumin tai [...] on 10-09-2022 Creatinine [Mass/Vol] 1.24 mg/dL 0.55-1.02 [facility] Comment on above: The validity of the calculated GFR & GFRAA in patients over 70 years has not been determined. Clinical correlation is essential. Serum or plasma urea nitroge n measurement (mass/volume)Ordered By: Tip Hamilton on 10-09-2022 Urea nitrogen [Mass/Vol] 26 mg/dL 7-18 [facility] Squamous epithelial cells de tection in urine sediment by light microscopyOrdered By: Tip Hamilton on 10-09-2022 Epithelial cells.squamous LM Ql (Urine sed) 0-5 SEEN /hpf 5-10 [facility] Thin prep Papanicolaou smear with manual screeningOrdered By: Tip Hamilton on 10-09-2022 Thin prep Papanicolaou smear with manual screening 17 U/L 15-37 [facility] Thin prep Papanicolaou smear with manual screening 5 5-15 [facility] Urine blood detectionOrdered By: Tip Hamilton on 10-09-2022 RBC Ql (U) 10 /ul Negative [facility] RBC Ql (U) 0 SEEN /hpf 0-5 [facility] Urine clarityOrdered By: Kali Hamilton on 10-09-2022 Clarity (U) Sl. Cloudy Clear [facility] Urine color determinationOrd ered By: Tip Hamilton on 10-09-2022 Color (U) Yellow Yellow [facility] Urine glucose detectionOrder ed By: Tip Hamilton on 10-09-2022 Glucose Ql (U) 100 mg/dl Normal [facility] Urine leukocyte esterase det ection by dipstickOrdered By: Tip Hamilton on 10-09-2022 Leukocyte esterase Test strip Ql (U) 500 /ul Negative [facility] Urine pHOrdered By: Tip gonzalez on 10-09-2022 pH (U) 6.5 [pH] 5.0 - 8.0 [facility] Urine sediment bacteria coun t by microscopy (number/high power field)Ordered By: Tip Hamilton on 10-09-2022 Bacteria LM.HPF (Urine sed) [#/Area] 4 /[HPF] None Seen [facility] Urine specific gravity measu rementOrdered By: Tip Hamilton on 10-09-2022 Specific gravity (U) [Rel density] 1.010 1.002-1.03 0 [facility] Urobilinogen Auto test strip Ql (U)Ordered By: Tip Hamilton on 10-09-2022 Urobilinogen Ql (U) Normal mg/dl Normal [facility] Basophil percentageOrdered B y: Ganesh Garcia on 09-29-2022 Basophil percentage 426 mg/dL 74-106 [facility] Basophil percentage 132 mmol/L 136-145 [facility] Basophil percentage 4.1 mmol/L 3.5-5.1 [facility] Basophil percentage 98 mmol/L 98-107 [facility] Basophils (Bld) [#/Vol] 6.8 10*3/uL 4.4-11.0 [facility] Chloride [Moles/Vol] 98 mmol/L 98-107 [facility] Glucose [Mass/Vol] 426 mg/dL 74-106 [facility] Comment on above: Glucose result great er than or equal to 200 mg/dLsuggests DIABETES MELLITUS per A.D.A. criteria. Potassium [Moles/Vol] 4.1 mmol/L 3.5-5.1 [facility] Sodium [Moles/Vol] 132 mmol/L 136-145 [facility] WBC (Bld) [#/Vol] 6.8 10*3/uL 4.4-11.0 [facility] Blood erythrocytes count (nu mber/volume)Ordered By: Ganesh Garcia on 09-29-2022 RBC (Bld) [#/Vol] 4.11 10*6/uL 4.2-5.4 [facility] Blood hemoglobin measurement (mass/volume)Ordered By: Ganesh Garcia on 09-29-2022 Hemoglobin (Bld) [Mass/Vol] 11.5 g/dL 12.0-15.0 [facility] Blood platelet mean volumeOr dered By: Ganesh Garcia on 09-29-2022 Platelet mean volume (Bld) [Entitic vol] 10.2 fL 6.2-12.0 [facility] Determination of erythrocyte mean corpuscular volume (MCV)Ordered By: Ganesh Garcia on 09-29-2022 MCV (RBC) [Entitic vol] 85.9 fL 81-[address] [facility] Hematocrit Auto (Bld) [Volum e fraction]Ordered By: Ganesh Garcia on 09-29-2022 Hematocrit (Bld) [Volume fraction] 35.3 % 37-47 [facility] Laboratory - Chemistry and C hemistry - challengeOrdered By: Ganesh Garcia on 09-29-2022 CO2 [Moles/Vol] 27.0 mmol/L 21.0-32.0 [facility] Urea nitrogen/Creatinine [Mass ratio] 21.9 mg/mg 10-20 [facility] Laboratory - Hematology and Cell countsOrdered By: Ganesh Garcia on 09-29-2022 Erythrocyte distribution width (RBC) [Entitic vol] 42.8 fL 35.1-43.9 [facility] Erythrocyte distribution width (RBC) [Ratio] 13.8 % 11.6-14.6 [facility] MCH (RBC) [Entitic mass] 28.0 pg 27.0-32.0 [facility] Auto (RBC) [Mass/Vol]Or dered By: Ganesh Garcia on 09-29-2022 MCHC (RBC) [Mass/Vol] 32.6 g/dL 32-36 [facility] No Panel InformationOrdered By: Ganesh Garcia on 09-29-2022 Estimated GFR (MDRD) Amer 63 mL/min >60 [facility] Comment on above: GFR Calc Estimated GFR (MDRD) Non-Af Amer 52 mL/min >60 [facility] Comment on above: Non- GFR Calc 28.0 pg 27.0-32.0 [facility] 13.8 % 11.6-14.6 [facility] 42.8 fl 35.1-43.9 [facility] 52 mL/min >60 [facility] 63 mL/min >60 [facility] 21.9 RATIO 10-20 [facility] 27.0 mmol/L 21.0-32.0 [facility] Platelets bldOrdered By: Robert Garcia on 09-29-2022 Platelets (Bld) [#/Vol] 289 10*3/uL 150-450 [facility] Serum or plasma calcium tai urement (mass/volume)Ordered By: Ganesh Garcia on 09-29-2022 Calcium [Mass/Vol] 9.0 mg/dL 8.5-10.1 [facility] Serum or plasma creatinine m easurement (mass/volume)Ordered By: Ganesh Garcia on 09-29-2022 Creatinine [Mass/Vol] 1.14 mg/dL 0.55-1.02 [facility] Comment on above: The validity of the calculated GFR & GFRAA in patients over 70 years has not been determined. Clinical correlation is essential. Serum or plasma urea nitroge n measurement (mass/volume)Ordered By: Ganesh Garcia on 09-29-2022 Urea nitrogen [Mass/Vol] 25 mg/dL 7-18 [facility] Thin prep Papanicolaou smear with manual screeningOrdered By: Ganesh Garcia on 09-29-2022 Thin prep Papanicolaou smear with manual screening 7 5-15 [facility] Basophil percentageOrdered B y: Ganesh Garcia on 09-15-2022 Basophil percentage 258 mg/dL 74-106 [facility] Basophil percentage 134 mmol/L 136-145 [facility] Basophil percentage 4.1 mmol/L 3.5-5.1 [facility] Basophil percentage 99 mmol/L 98-107 [facility] Basophils (Bld) [#/Vol] 7.0 10*3/uL 4.4-11.0 [facility] Chloride [Moles/Vol] 99 mmol/L 98-107 [facility] Glucose [Mass/Vol] 258 mg/dL 74-106 [facility] Comment on above: Glucose result great er than or equal to 200 mg/dLsuggests DIABETES MELLITUS per A.D.A. criteria. Potassium [Moles/Vol] 4.1 mmol/L 3.5-5.1 [facility] Sodium [Moles/Vol] 134 mmol/L 136-145 [facility] WBC (Bld) [#/Vol] 7.0 10*3/uL 4.4-11.0 [facility] Blood erythrocytes count (nu mber/volume)Ordered By: Ganesh Garcia on 09-15-2022 RBC (Bld) [#/Vol] 3.71 10*6/uL 4.2-5.4 [facility] Blood hemoglobin measurement (mass/volume)Ordered By: Ganesh Garcia on 09-15-2022 Hemoglobin (Bld) [Mass/Vol] 10.6 g/dL 12.0-15.0 [facility] Blood platelet mean volumeOr dered By: Ganesh Garcia on 09-15-2022 Platelet mean volume (Bld) [Entitic vol] 10.1 fL 6.2-12.0 [facility] Determination of erythrocyte mean corpuscular volume (MCV)Ordered By: Ganesh Garcia on 09-15-2022 MCV (RBC) [Entitic vol] 84.9 fL 81-[address] [facility] Hematocrit Auto (Bld) [Volum e fraction]Ordered By: Ganesh Garcia on 09-15-2022 Hematocrit (Bld) [Volume fraction] 31.5 % 37-47 [facility] Laboratory - Chemistry and C hemistry - challengeOrdered By: Ganesh Garcia on 09-15-2022 CO2 [Moles/Vol] 26.0 mmol/L 21.0-32.0 [facility] Urea nitrogen/Creatinine [Mass ratio] 22.8 mg/mg 10- [facility] Laboratory - Hematology and Cell countsOrdered By: Ganesh Garcia on 09-15-2022 Erythrocyte distribution width (RBC) [Entitic vol] 43.3 fL 35.1-43.9 [facility] Erythrocyte distribution width (RBC) [Ratio] 14.0 % 11.6-14.6 [facility] MCH (RBC) [Entitic mass] 28.6 pg 27.0-32.0 [facility] MCHC Auto (RBC) [Mass/Vol]Or dered By: Ganesh Garcia on 09-15-2022 MCHC (RBC) [Mass/Vol] 33.7 g/dL 32-36 [facility] No Panel InformationOrdered By: Ganesh Garcia on 09-15-2022 Estimated GFR (MDRD) Amer 72 mL/min >60 [facility] Comment on above: GFR Calc Estimated GFR (MDRD) Non-Af Amer 60 mL/min >60 [facility] Comment on above: Non- GFR Calc 28.6 pg 27.0-32.0 [facility] 14.0 % 11.6-14.6 [facility] 43.3 fl 35.1-43.9 [facility] 60 mL/min >60 [facility] 72 mL/min >60 [facility] 22.8 RATIO 08-13 [facility] 26.0 mmol/L 21.0-32.0 [facility] Platelets bldOrdered By: Robert Garcia on 09-15-2022 Platelets (Bld) [#/Vol] 258 10*3/uL 150-450 [facility] Serum or plasma calcium tai urement (mass/volume)Ordered By: Ganesh Garcia on 09-15-2022 Calcium [Mass/Vol] 8.6 mg/dL 8.5-10.1 [facility] Serum or plasma creatinine m easurement (mass/volume)Ordered By: Ganesh Garcia on 09-15-2022 Creatinine [Mass/Vol] 1.01 mg/dL 0.55-1.02 [facility] Comment on above: The validity of the calculated GFR & GFRAA in patients over 70 years has not been determined. Clinical correlation is essential. Serum or plasma urea nitroge n measurement (mass/volume)Ordered By: Ganesh Garcia on 09-15-2022 Urea nitrogen [Mass/Vol] 23 mg/dL 7-18 [facility] Thin prep Papanicolaou smear with manual screeningOrdered By: Ganesh Garcia on 09-15-2022 Thin prep Papanicolaou smear with manual screening 9 5-15 [facility] Basophil percentageOrdered B y: Ganesh Garcia on 09-11-2022 Basophil percentage 246 mg/dL 74-106 [facility] Basophil percentage 136 mmol/L 136-145 [facility] Basophil percentage 4.3 mmol/L 3.5-5.1 [facility] Basophil percentage 100 mmol/L 98-107 [facility] Basophils (Bld) [#/Vol] 7.5 10*3/uL 4.4-11.0 [facility] Chloride [Moles/Vol] 100 mmol/L 98-107 [facility] Glucose [Mass/Vol] 246 mg/dL 74-106 [facility] Comment on above: Glucose result great er than or equal to 200 mg/dLsuggests DIABETES MELLITUS per A.D.A. criteria. Potassium [Moles/Vol] 4.3 mmol/L 3.5-5.1 [facility] Sodium [Moles/Vol] 136 mmol/L 136-145 [facility] WBC (Bld) [#/Vol] 7.5 10*3/uL 4.4-11.0 [facility] Blood erythrocytes count (nu mber/volume)Ordered By: Ganesh Garcia on 09-11-2022 RBC (Bld) [#/Vol] 3.79 10*6/uL 4.2-5.4 [facility] Blood hemoglobin measurement (mass/volume)Ordered By: Ganesh Garcia on 09-11-2022 Hemoglobin (Bld) [Mass/Vol] 10.5 g/dL 12.0-15.0 [facility] Blood platelet mean volumeOr dered By: Ganesh Garcia on 09-11-2022 Platelet mean volume (Bld) [Entitic vol] 10.1 fL 6.2-12.0 [facility] Determination of erythrocyte mean corpuscular volume (MCV)Ordered By: Ganesh Garcia on 09-11-2022 MCV (RBC) [Entitic vol] 85.2 fL 81-99 [facility] Hematocrit Auto (Bld) [Volum e fraction]Ordered By: Ganesh Garcia on 09-11-2022 Hematocrit (Bld) [Volume fraction] 32.3 % 37-47 [facility] Laboratory - Chemistry and C hemistry - challengeOrdered By: Ganesh Garcia on 09-11-2022 CO2 [Moles/Vol] 27.0 mmol/L 21.0-32.0 [facility] Natriuretic peptide B (Bld) [Mass/Vol] 18.5 pg/mL 0-100 [facility] Urea nitrogen/Creatinine [Mass ratio] 23.6 mg/mg 10-20 [facility] Laboratory - Hematology and Cell countsOrdered By: Ganesh Garcia on 09-11-2022 Erythrocyte distribution width (RBC) [Entitic vol] 43.0 fL 35.1-43.9 [facility] Erythrocyte distribution width (RBC) [Ratio] 13.7 % 11.6-14.6 [facility] MCH (RBC) [Entitic mass] 27.7 pg 27.0-32.0 [facility] MCHC Auto (RBC) [Mass/Vol]Or dered By: Ganesh Garcia on 09-11-2022 MCHC (RBC) [Mass/Vol] 32.5 g/dL 32-36 [facility] No Panel InformationOrdered By: Ganesh Garcia on 09-11-2022 Estimated GFR (MDRD) Amer 65 mL/min >60 [facility] Comment on above: GFR Calc Estimated GFR (MDRD) Non-Af Amer 54 mL/min >60 [facility] Comment on above: Non- GFR Calc 27.7 pg 27.0-32.0 [facility] 13.7 % 11.6-14.6 [facility] 43.0 fl 35.1-43.9 [facility] 54 mL/min >60 [facility] 65 mL/min >60 [facility] 23.6 RATIO 10-20 [facility] 27.0 mmol/L 21.0-32.0 [facility] 18.5 pg/mL 0-100 [facility] Platelets bldOrdered By: Robert Garcia on 09-11-2022 Platelets (Bld) [#/Vol] 257 10*3/uL 150-450 [facility] Serum or plasma calcium tai urement (mass/volume)Ordered By: Ganesh Garcia on 09-11-2022 Calcium [Mass/Vol] 8.6 mg/dL 8.5-10.1 [facility] Serum or plasma creatinine m easurement (mass/volume)Ordered By: Ganesh Garcia on 09-11-2022 Creatinine [Mass/Vol] 1.10 mg/dL 0.55-1.02 [facility] Comment on above: The validity of the calculated GFR & GFRAA in patients over 70 years has not been determined. Clinical correlation is essential. Serum or plasma urea nitroge n measurement (mass/volume)Ordered By: Ganesh Garcia on 09-11-2022 Urea nitrogen [Mass/Vol] 26 mg/dL 7-18 [facility] Thin prep Papanicolaou smear with manual screeningOrdered By: Ganesh Garcia on 09-11-2022 Thin prep Papanicolaou smear with manual screening 9 -15 [facility] Basophil percentageOrdered B y: Ganesh Garcia on 09-01-2022 Chloride [Moles/Vol] 101 mmol/L 98-107 [facility] Glucose [Mass/Vol] 255 mg/dL 74-106 [facility] Comment on above: Glucose result great er than or equal to 200 mg/dLsuggests DIABETES MELLITUS per A.D.A. criteria. Potassium [Moles/Vol] 4.1 mmol/L 3.5-5.1 [facility] Sodium [Moles/Vol] 135 mmol/L 136-145 [facility] WBC (Bld) [#/Vol] 7.0 10*3/uL 4.4-11.0 [facility] Blood erythrocytes count (nu mber/volume)Ordered By: Ganesh Garcia on 09-01-2022 RBC (Bld) [#/Vol] 3.93 10*6/uL 4.2-5.4 [facility] Blood hemoglobin measurement (mass/volume)Ordered By: Ganesh Garcia on 09-01-2022 Hemoglobin (Bld) [Mass/Vol] 10.9 g/dL 12.0-15.0 [facility] Blood platelet mean volumeOr dered By: Ganesh Garcia on 09-01-2022 Platelet mean volume (Bld) [Entitic vol] 9.9 fL 6.2-12.0 [facility] Determination of erythrocyte mean corpuscular volume (MCV)Ordered By: Ganesh Garcia on 09-01-2022 MCV (RBC) [Entitic vol] 84.7 fL 81-[address] [facility] Hematocrit Auto (Bld) [Volum e fraction]Ordered By: Ganesh Garcia on 09-01-2022 Hematocrit (Bld) [Volume fraction] 33.3 % 37-47 [facility] Laboratory - Chemistry and C hemistry - challengeOrdered By: Ganesh Garcia on 09-01-2022 CO2 [Moles/Vol] 27.0 mmol/L 21.0-32.0 [facility] Urea nitrogen/Creatinine [Mass ratio] 13.4 mg/mg 10-20 [facility] Laboratory - Hematology and Cell countsOrdered By: Ganesh Garcia on 09-01-2022 Erythrocyte distribution width (RBC) [Entitic vol] 42.9 fL 35.1-43.9 [facility] Erythrocyte distribution width (RBC) [Ratio] 13.9 % 11.6-14.6 [facility] MCH (RBC) [Entitic mass] 27.7 pg 27.0-32.0 [facility] MCHC Auto (RBC) [Mass/Vol]Or dered By: Ganesh Garcia on 09-01-2022 MCHC (RBC) [Mass/Vol] 32.7 g/dL 32-36 [facility] No Panel InformationOrdered By: Ganesh Garcia on 09-01-2022 Estimated GFR (MDRD) Amer 60 mL/min >60 [facility] Comment on above: GFR Calc Estimated GFR (MDRD) Non-Af Amer 49 mL/min >60 [facility] Comment on above: Non- GFR Calc Platelets bldOrdered By: Robert Garcia on 09-01-2022 Platelets (Bld) [#/Vol] 328 10*3/uL 150-450 [facility] Serum or plasma calcium tai urement (mass/volume)Ordered By: Ganesh Garcia on 09-01-2022 Calcium [Mass/Vol] 9.1 mg/dL 8.5-10.1 [facility] Serum or plasma creatinine m easurement (mass/volume)Ordered By: Ganesh Garcia on 09-01-2022 Creatinine [Mass/Vol] 1.19 mg/dL 0.55-1.02 [facility] Comment on above: The validity of the calculated GFR & GFRAA in patients over 70 years has not been determined. Clinical correlation is essential. Serum or plasma urea nitroge n measurement (mass/volume)Ordered By: Ganesh Garcia on 09-01-2022 Urea nitrogen [Mass/Vol] 16 mg/dL 7-18 [facility] Thin prep Papanicolaou smear with manual screeningOrdered By: Ganesh Garcia on 09-01-2022 Thin prep Papanicolaou smear with manual screening 7 5-15 [facility] Absolute lymphocyte countOrd ered By: Dr. Govea on 08-24-2022 Lymphocytes Auto (Unsp spec) [#/Vol] 3.37 10*3/uL 0.83-4.51 [facility] Basophil percentageOrdered B y: Dr. Govea on 08-24-2022 Basophils/100 WBC (Bld) 0.6 % 0-[address] [facility] Bilirubin [Mass/Vol] 0.40 mg/dL 0.20-1.00 [facility] Comment on above: For patients on eltr ombopag therapy, use of Dimension [place] TBIL is not recommended. Chloride [Moles/Vol] 97 mmol/L 98-107 [facility] Eosinophils/100 WBC (Bld) 1.6 % 0-5 [facility] Glucose [Mass/Vol] 235 mg/dL 74-106 [facility] Comment on above: Glucose result great er than or equal to 200 mg/dLsuggests DIABETES MELLITUS per A.D.A. criteria. Neutrophils (Bld) [#/Vol] 4.6 10*3/uL 2.0-7.7 [facility] Neutrophils/100 WBC (Bld) 53.6 % 47-70 [facility] Potassium [Moles/Vol] 4.4 mmol/L 3.5-5.1 [facility] Protein [Mass/Vol] 7.0 g/dL 6.4-8.2 [facility] Sodium [Moles/Vol] 134 mmol/L 136-145 [facility] WBC (Bld) [#/Vol] 8.6 10*3/uL 4.4-11.0 [facility] Blood erythrocytes count (nu mber/volume)Ordered By: Dr. Govea on 08-24-2022 RBC (Bld) [#/Vol] 4.30 10*6/uL 4.2-5.4 [facility] Blood hemoglobin measurement (mass/volume)Ordered By: Dr. Govea on 08-24-2022 Hemoglobin (Bld) [Mass/Vol] 12.0 g/dL 12.0-15.0 [facility] Blood lymphocytes/100 leukoc ytesOrdered By: Dr. Govea on 08-24-2022 Lymphocytes/100 WBC (Bld) 39.0 % 19-41 [facility] Blood monocytes/100 leukocyt esOrdered By: Dr. Govea on 08-24-2022 Monocytes/100 WBC (Bld) 5.0 % 0-[address] [facility] Blood platelet mean volumeOr dered By: Dr. Govea on 08-24-2022 Platelet mean volume (Bld) [Entitic vol] 9.5 fL 6.2-12.0 [facility] Determination of erythrocyte mean corpuscular volume (MCV)Ordered By: Dr. Govea on 08-24-2022 MCV (RBC) [Entitic vol] 83.5 fL 81-[address] [facility] Direct bilirubinOrdered By: Dr. Govea on 08-24-2022 Bilirubin.direct [Mass/Vol] 0.13 mg/dL 0.00-0.30 [facility] Hematocrit Auto (Bld) [Volum e fraction]Ordered By: Dr. Govea on 08-24-2022 Hematocrit (Bld) [Volume fraction] 35.9 % 37-47 [facility] Laboratory - Chemistry and C hemistry - challengeOrdered By: Dr. Govea on 08-24-2022 ALP [Catalytic activity/Vol] 61 U/L 45-117 [facility] ALT [Catalytic activity/Vol] 23 U/L 13-56 [facility] CO2 [Moles/Vol] 28.0 mmol/L 21.0-32.0 [facility] Globulin (S) [Mass/Vol] 4.1 g/dL 2.2-4.[address] [facility] Lipase [Catalytic activity/Vol] 92 U/L 73-393 [facility] Urea nitrogen/Creatinine [Mass ratio] 16.8 mg/mg 10-20 [facility] Laboratory - Hematology and Cell countsOrdered By: Dr. Govea on 08-24-2022 Erythrocyte distribution width (RBC) [Entitic vol] 42.8 fL 35.1-43.9 [facility] Erythrocyte distribution width (RBC) [Ratio] 14.2 % 11.6-14.6 [facility] Immature granulocytes/100 WBC (Bld) 0.200 % 0.0-0.9 [facility] Comment on above: IG% - Immature Granu locytes (promyelocytes, myelocytes and metamyelocytes) > 1% indicates that a LEFT SHIFT is Present. MCH (RBC) [Entitic mass] 27.9 pg 27.0-32.0 [facility] Nucleated RBC/100 WBC (Bld) [Ratio] 0 % 0-5 [facility] MCHC Auto (RBC) [Mass/Vol]Or dered By: Dr. Govea on 08-24-2022 MCHC (RBC) [Mass/Vol] 33.4 g/dL 32-36 [facility] No Panel InformationOrdered By: Dr. Govea on 08-24-2022 Troponin I High Sensitivity 10 pg/mL 3.0-54.0 [facility] Comment on above: Please Note: New Carolann t Units and Gender Specific Reference Ranges. For more information see Policy Stat Procedure [place] High Sensitivity Troponin (TNIH) and attachments. D-Dimer Quantitative (PE/DVT) 0.67 FEU/ug/m 0.27-0.49 [facility] Comment on above: D-Dimer ELEVATED (>0 .49): Additional studies and clinicalassessments are indicated to conclude diagnosis of:Deep Vein Thrombosis (DVT) or Pulmonary Embolism (PE)CRITICAL VALUE VERIFIED. CALLED TO PAT CANTU08/24/22 0416 Maurice Cast.RESULTS READ BACK BY SAME . Estimated Creatinine Clearance Calc 30.43 ml/min [facility] Estimated GFR (MDRD) Amer 48 mL/min >60 [facility] Comment on above: GFR Calc Estimated GFR (MDRD) Non-Af Amer 40 mL/min >60 [facility] Comment on above: Non- GFR Calc Platelets bldOrdered By: Dr. Govea on 08-24-2022 Platelets (Bld) [#/Vol] 344 10*3/uL 150-450 [facility] Serum or plasma albumin tai [...] on 08-24-2022 Creatinine [Mass/Vol] 1.43 mg/dL 0.55-1.02 [facility] Comment on above: The validity of the calculated GFR & GFRAA in patients over 70 years has not been determined. Clinical correlation is essential. Serum or plasma urea nitroge n measurement (mass/volume)Ordered By: Dr. Govea on 08-24-2022 Urea nitrogen [Mass/Vol] 24 mg/dL 7-18 [facility] Thin prep Papanicolaou smear with manual screeningOrdered By: Dr. Govea on 08-24-2022 Thin prep Papanicolaou smear with manual screening 22 U/L 15-37 [facility] Thin prep Papanicolaou smear with manual screening 9 5-15 [facility] Basophil percentageOrdered B y: Ganesh Garcia on 08-18-2022 Chloride [Moles/Vol] 103 mmol/L 98-107 [facility] Glucose [Mass/Vol] 158 mg/dL 74-106 [facility] Comment on above: Fasting Glucose resu lt greater than or equal to 126 mg/dL suggests DIABETES MELLITUS per A.D.A. criteria. Potassium [Moles/Vol] 4.2 mmol/L 3.5-5.1 [facility] Sodium [Moles/Vol] 137 mmol/L 136-145 [facility] WBC (Bld) [#/Vol] 7.1 10*3/uL 4.4-11.0 [facility] Blood erythrocytes count (nu mber/volume)Ordered By: Ganesh Garcia on 08-18-2022 RBC (Bld) [#/Vol] 3.85 10*6/uL 4.2-5.4 [facility] Blood hemoglobin measurement (mass/volume)Ordered By: Ganesh Garcia on 08-18-2022 Hemoglobin (Bld) [Mass/Vol] 11.0 g/dL 12.0-15.0 [facility] Blood platelet mean volumeOr dered By: Ganesh Garcia on 08-18-2022 Platelet mean volume (Bld) [Entitic vol] 9.6 fL 6.2-12.0 [facility] Determination of erythrocyte mean corpuscular volume (MCV)Ordered By: Ganesh Garcia on 08-18-2022 MCV (RBC) [Entitic vol] 87.3 fL 81-[address] [facility] Hematocrit Auto (Bld) [Volum e fraction]Ordered By: Ganesh Garcia on 08-18-2022 Hematocrit (Bld) [Volume fraction] 33.6 % 37-47 [facility] Laboratory - Chemistry and C hemistry - challengeOrdered By: Ganesh Garcia on 08-18-2022 CO2 [Moles/Vol] 29.0 mmol/L 21.0-32.0 [facility] Urea nitrogen/Creatinine [Mass ratio] 21.4 mg/mg 10-20 [facility] Laboratory - Hematology and Cell countsOrdered By: Ganesh Garcia on 08-18-2022 Erythrocyte distribution width (RBC) [Entitic vol] 45.0 fL 35.1-43.9 [facility] Erythrocyte distribution width (RBC) [Ratio] 14.1 % 11.6-14.6 [facility] MCH (RBC) [Entitic mass] 28.6 pg 27.0-32.0 [facility] MCHC Auto (RBC) [Mass/Vol]Or dered By: Ganesh Garcia on 08-18-2022 MCHC (RBC) [Mass/Vol] 32.7 g/dL 32-36 [facility] No Panel InformationOrdered By: Ganesh Garcia on 08-18-2022 Estimated GFR (MDRD) Amer 64 mL/min >60 [facility] Comment on above: GFR Calc Estimated GFR (MDRD) Non-Af Amer 53 mL/min >60 [facility] Comment on above: Non- GFR Calc Platelets bldOrdered By: Robert Garcia on 08-18-2022 Platelets (Bld) [#/Vol] 310 10*3/uL 150-450 [facility] Serum or plasma calcium tai urement (mass/volume)Ordered By: Ganesh Garcia on 08-18-2022 Calcium [Mass/Vol] 9.3 mg/dL 8.5-10.1 [facility] Serum or plasma creatinine m easurement (mass/volume)Ordered By: Ganesh Garcia on 08-18-2022 Creatinine [Mass/Vol] 1.12 mg/dL 0.55-1.02 [facility] Comment on above: The validity of the calculated GFR & GFRAA in patients over 70 years has not been determined. Clinical correlation is essential. Serum or plasma urea nitroge n measurement (mass/volume)Ordered By: Ganesh Garcia on 08-18-2022 Urea nitrogen [Mass/Vol] 24 mg/dL 7-18 [facility] Thin prep Papanicolaou smear with manual screeningOrdered By: Ganesh Garcia on 08-18-2022 Thin prep Papanicolaou smear with manual screening 5 5-15 [facility] Basophil percentageOrdered B y: Ganesh Garcia on 08-04-2022 Chloride [Moles/Vol] 102 mmol/L 98-107 [facility] Glucose [Mass/Vol] 215 mg/dL 74-106 [facility] Comment on above: Glucose result great er than or equal to 200 mg/dLsuggests DIABETES MELLITUS per A.D.A. criteria. Potassium [Moles/Vol] 4.1 mmol/L 3.5-5.1 [facility] Sodium [Moles/Vol] 137 mmol/L 136-145 [facility] WBC (Bld) [#/Vol] 6.8 10*3/uL 4.4-11.0 [facility] Blood erythrocytes count (nu mber/volume)Ordered By: Ganesh Garcia on 08-04-2022 RBC (Bld) [#/Vol] 3.88 10*6/uL 4.2-5.4 [facility] Blood hemoglobin measurement (mass/volume)Ordered By: Ganesh Garcia on 08-04-2022 Hemoglobin (Bld) [Mass/Vol] 10.8 g/dL 12.0-15.0 [facility] Blood platelet mean volumeOr dered By: Ganesh Garcia on 08-04-2022 Platelet mean volume (Bld) [Entitic vol] 9.9 fL 6.2-12.0 [facility] Determination of erythrocyte mean corpuscular volume (MCV)Ordered By: Ganesh Garcia on 08-04-2022 MCV (RBC) [Entitic vol] 87.9 fL 81-[address] [facility] Hematocrit Auto (Bld) [Volum e fraction]Ordered By: Ganesh Garcia on 08-04-2022 Hematocrit (Bld) [Volume fraction] 34.1 % 37-47 [facility] Laboratory - Chemistry and C hemistry - challengeOrdered By: Ganesh Garcia on 08-04-2022 CO2 [Moles/Vol] 28.0 mmol/L 21.0-32.0 [facility] Urea nitrogen/Creatinine [Mass ratio] 19.1 mg/mg 10-20 [facility] Laboratory - Hematology and Cell countsOrdered By: Ganesh Garcia on 08-04-2022 Erythrocyte distribution width (RBC) [Entitic vol] 44.9 fL 35.1-43.9 [facility] Erythrocyte distribution width (RBC) [Ratio] 14.1 % 11.6-14.6 [facility] MCH (RBC) [Entitic mass] 27.8 pg 27.0-32.0 [facility] MCHC Auto (RBC) [Mass/Vol]Or dered By: Ganesh Garcia on 08-04-2022 MCHC (RBC) [Mass/Vol] 31.7 g/dL 32-36 [facility] No Panel InformationOrdered By: Ganesh Garcia on 08-04-2022 Estimated GFR (MDRD) Amer 74 mL/min >60 [facility] Comment on above: GFR Calc Estimated GFR (MDRD) Non-Af Amer 61 mL/min >60 [facility] Comment on above: Non- GFR Calc Platelets bldOrdered By: Robert Garcia on 08-04-2022 Platelets (Bld) [#/Vol] 319 10*3/uL 150-450 [facility] Serum or plasma calcium tai urement (mass/volume)Ordered By: Ganesh Garcia on 08-04-2022 Calcium [Mass/Vol] 8.9 mg/dL 8.5-10.1 [facility] Serum or plasma creatinine m easurement (mass/volume)Ordered By: Ganesh Garcia on 08-04-2022 Creatinine [Mass/Vol] 0.99 mg/dL 0.55-1.02 [facility] Comment on above: The validity of the calculated GFR & GFRAA in patients over 70 years has not been determined. Clinical correlation is essential. Serum or plasma urea nitroge n measurement (mass/volume)Ordered By: Ganesh Garcia on 08-04-2022 Urea nitrogen [Mass/Vol] 19 mg/dL 7-18 [facility] Thin prep Papanicolaou smear with manual screeningOrdered By: Ganesh Garcia on 08-04-2022 Thin prep Papanicolaou smear with manual screening 7 5-15 [facility] Basophil percentageon 2021 Chloride [Moles/Vol] 100 mmol/L 98-107 [facility] Work Phone: Cholesterol [Mass/Vol] 96 mg/dL <200 [facility] Work Phone: Comment on above: <200 mg/dL Desirable 200-240 mg/dL Borderline >240 mg/dL High Risk Glucose [Mass/Vol] 263 mg/dL 74-106 [facility] Work Phone: Comment on above: Glucose result great er than or equal to 200 mg/dLsuggests DIABETES MELLITUS per A.D.A. criteria. Potassium [Moles/Vol] 4.3 mmol/L 3.5-5.1 [facility] Work Phone: Sodium [Moles/Vol] 136 mmol/L 136-145 [facility] Work Phone: Triglyceride [Mass/Vol] 361 mg/dL <199 [facility] Work Phone: Comment on above: The [...] (Bld) [#/Vol] 3.77 10*6/uL 4.2-5.4 [facility] Work Phone: Blood hemoglobin measurement (mass/volume)on 07-20-2022 Hemoglobin (Bld) [Mass/Vol] 10.6 g/dL 12.0-15.0 [facility] Work Phone: Blood platelet mean volumeon 07-20-2022 Platelet mean volume (Bld) [Entitic vol] 10.0 fL 6.2-12.0 [facility] Work Phone: Determination of erythrocyte mean corpuscular volume (MCV)on 07-20-2022 MCV (RBC) [Entitic vol] 91.0 fL 81-[address] [facility] Work Phone: Hematocrit Auto (Bld) [Volum e fraction]on 07-20-2022 Hematocrit (Bld) [Volume fraction] 34.3 % 37-47 [facility] Work Phone: Laboratory - Chemistry and C hemistry - challengeon 07-20-2022 CO2 [Moles/Vol] 27.0 mmol/L 21.0-32.0 [facility] Work Phone: Urea nitrogen/Creatinine [Mass ratio] 18.3 mg/mg 10-20 [facility] Work Phone: Laboratory - Hematology and Cell countson 07-20-2022 Erythrocyte distribution width (RBC) [Entitic vol] 44.6 fL 35.1-43.9 [facility] Work Phone: Erythrocyte distribution width (RBC) [Ratio] 13.5 % 11.6-14.6 [facility] Work Phone: MCH (RBC) [Entitic mass] 28.1 pg 27.0-32.0 [facility] Work Phone: MCHC Auto (RBC) [Mass/Vol]on 07-20-2022 MCHC (RBC) [Mass/Vol] 30.9 g/dL 32-36 [facility] Work Phone: No Panel Informationon 07-20 Estimated GFR (MDRD) Amer 70 mL/min >60 [facility] Work Phone: Comment on above: GFR Calc Estimated GFR (MDRD) Non-Af Amer 58 mL/min >60 [facility] Work Phone: Comment on above: Non- GFR Calc Platelets bldon 07-20-2022 Platelets (Bld) [#/Vol] 274 10*3/uL 150-450 [facility] Work Phone: Serum or plasma calcium tai urement (mass/volume)on 07-20-2022 Calcium [Mass/Vol] 8.7 mg/dL 8.5-10.1 [facility] Work Phone: Serum or plasma cholesterol in HDL measurement (mass/volume)on 07-20-2022 Cholesterol in HDL [Mass/Vol] 17 mg/dL >40 [facility] Work Phone: Comment on above: The drugs N-Acetylcy steine and Metamizole may falsely depress this assay. Reference Range HDL <40 mg/dL Low HDL Cholesterol HDL >or= 60 mg/dL High HDL Cholesterol Serum or plasma cholesterol in VLDL measurement (mass/volume)on 07-20-2022 Cholesterol in VLDL [Mass/Vol] 72 mg/dL 5-40 [facility] Work Phone: Serum or plasma creatinine m easurement (mass/volume)on 07-20-2022 Creatinine [Mass/Vol] 1.04 mg/dL 0.55-1.02 [facility] Work Phone: Comment on above: The validity of the calculated GFR & GFRAA in patients over 70 years has not been determined. Clinical correlation is essential. Serum or plasma low density lipoprotein (LDL) cholesterol measurement (mass/volume)on 07-20-2022 Cholesterol in LDL [Mass/Vol] 7 mg/dL 0-130 [facility] Work Phone: Serum or plasma urea nitroge n measurement (mass/volume)on 07-20-2022 Urea nitrogen [Mass/Vol] 19 mg/dL 7-18 [facility] Work Phone: Thin prep Papanicolaou smear with manual screeningon 07-20-2022 Thin prep Papanicolaou smear with manual screening 9 5-15 [facility] Work Phone: Basophil percentageon 2021 Basophil percentage 25-50 SEEN /hpf 0-5 [facility] Work Phone: Bilirubin Test strip Ql (U)o n 07-13-2022 Bilirubin Ql (U) Negative Negative [facility] Work Phone: Ketones Test strip Ql (U)on 07-13-2022 Ketones Ql (U) Negative Negative [facility] Work Phone: Mucus LM Ql (Urine sed)on Mucus Ql (Urine sed) 0 SEEN /hpf [facility] Work Phone: Nitrite Test strip Ql (U)on 07-13-2022 Nitrite Ql (U) Negative Negative [facility] Work Phone: Protein Test strip Ql (U)on 07-13-2022 Protein Ql (U) Negative Negative [facility] Work Phone: Squamous epithelial cells de tection in urine sediment by light microscopyon 07-13-2022 Epithelial cells.squamous LM Ql (Urine sed) 0-5 SEEN /hpf 5-10 [facility] Work Phone: Urine blood detectionon 06-25 RBC Ql (U) 10 /ul Negative [facility] Work Phone: RBC Ql (U) 0-5 SEEN /hpf 0-5 [facility] Work Phone: Urine clarityon 07-13-2022 Clarity (U) Sl. Cloudy Clear [facility] Work Phone: Urine color determinationon 07-13-2022 Color (U) Yellow Yellow [facility] Work Phone: Urine glucose detectionon Glucose Ql (U) 50 mg/dl Normal [facility] Work Phone: Urine leukocyte esterase det ection by dipstickon 07-13-2022 Leukocyte esterase Test strip Ql (U) 500 /ul Negative [facility] Work Phone: Urine pHon 07-13-2022 pH (U) 6.0 [pH] 5.0 - 8.0 [facility] Work Phone: Urine sediment bacteria coun t by microscopy (number/high power field)on 07-13-2022 Bacteria LM.HPF (Urine sed) [#/Area] 2 /[HPF] None Seen [facility] Work Phone: Urine specific gravity measu rementon 07-13-2022 Specific gravity (U) [Rel density] 1.010 1.002-1.03 0 [facility] Work Phone: Urobilinogen Auto test strip Ql (U)on 07-13-2022 Urobilinogen Ql (U) Normal mg/dl Normal [facility] Work Phone: Basophil percentageon 2021 Chloride [Moles/Vol] 101 mmol/L 98-107 [facility] Work Phone: Glucose [Mass/Vol] 240 mg/dL 74-106 [facility] Work Phone: Comment on above: Glucose result great er than or equal to 200 mg/dLsuggests DIABETES MELLITUS per A.D.A. criteria. Potassium [Moles/Vol] 3.9 mmol/L 3.5-5.1 [facility] Work Phone: Sodium [Moles/Vol] 136 mmol/L 136-145 [facility] Work Phone: WBC (Bld) [#/Vol] 7.8 10*3/uL 4.4-11.0 [facility] Work Phone: Blood erythrocytes count (nu mber/volume)on 07-07-2022 RBC (Bld) [#/Vol] 3.88 10*6/uL 4.2-5.4 [facility] Work Phone: Blood hemoglobin measurement (mass/volume)on 07-07-2022 Hemoglobin (Bld) [Mass/Vol] 11.1 g/dL 12.0-15.0 [facility] Work Phone: Blood platelet mean volumeon 07-07-2022 Platelet mean volume (Bld) [Entitic vol] 9.9 fL 6.2-12.0 [facility] Work Phone: Determination of erythrocyte mean corpuscular volume (MCV)on 07-07-2022 MCV (RBC) [Entitic vol] 89.4 fL 81-[address] [facility] Work Phone: Hematocrit Auto (Bld) [Volum e fraction]on 07-07-2022 Hematocrit (Bld) [Volume fraction] 34.7 % 37-47 [facility] Work Phone: Laboratory - Chemistry and C hemistry - challengeon 07-07-2022 CO2 [Moles/Vol] 26.0 mmol/L 21.0-32.0 [facility] Work Phone: Urea nitrogen/Creatinine [Mass ratio] 18.7 mg/mg 10-20 [facility] Work Phone: Laboratory - Hematology and Cell countson 07-07-2022 Erythrocyte distribution width (RBC) [Entitic vol] 44.2 fL 35.1-43.9 [facility] Work Phone: Erythrocyte distribution width (RBC) [Ratio] 13.5 % 11.6-14.6 [facility] Work Phone: MCH (RBC) [Entitic mass] 28.6 pg 27.0-32.0 [facility] Work Phone: MCHC Auto (RBC) [Mass/Vol]on 07-07-2022 MCHC (RBC) [Mass/Vol] 32.0 g/dL 32-36 [facility]: No Panel Informationon 07-07 Estimated GFR (MDRD) Amer 68 mL/min >60 [facility] Work Phone: Comment on above: GFR Calc Estimated GFR (MDRD) Non-Af Amer 56 mL/min >60 [facility] Work Phone: Comment on above: Non- GFR Calc Platelets bldon 07-07-2022 Platelets (Bld) [#/Vol] 310 10*3/uL 150-450 [facility] Work Phone: Serum or plasma calcium tai urement (mass/volume)on 07-07-2022 Calcium [Mass/Vol] 9.0 mg/dL 8.5-10.1 [facility] Work Phone: Serum or plasma creatinine m easurement (mass/volume)on 07-07-2022 Creatinine [Mass/Vol] 1.07 mg/dL 0.55-1.02 [facility] Work Phone: Comment on above: The validity of the calculated GFR & GFRAA in patients over 70 years has not been determined. Clinical correlation is essential. Serum or plasma urea nitroge n measurement (mass/volume)on 07-07-2022 Urea nitrogen [Mass/Vol] 20 mg/dL 7-18 [facility] Work Phone: Thin prep Papanicolaou smear with manual screeningon 07-07-2022 Thin prep Papanicolaou smear with manual screening 9 5-15 [facility] Work Phone: No Panel Informationon 07-03 Thyroid Stimulating Hormone (TSH) 1.98 uIU/mL 0.358-3.74 [facility] Work Phone: No Panel Informationon 07-01 Thyroid Stimulating Hormone (TSH) 1.82 uIU/mL 0.358-3.74 [facility] Work Phone: Whole blood hemoglobin A1c/t otal hemoglobin ratio (mass fraction)on 07-01-2022 HbA1c (Bld) [Mass fraction] 7.8 % 3.8-5.6 [facility] Work Phone: Comment on above: Normal < 5.7 % Predi abetic 5.7 - 6.4 % Diabetic >or= 6.5 % Please note range changes. Basophil percentageon 2021 Chloride [Moles/Vol] 99 mmol/L 98-107 [facility] Work Phone: Glucose [Mass/Vol] 193 mg/dL 74-106 [facility] Work Phone: Comment on above: Fasting Glucose resu lt greater than or equal to 126 mg/dL suggests DIABETES MELLITUS per A.D.A. criteria. Potassium [Moles/Vol] 4.1 mmol/L 3.5-5.1 [facility] Work Phone: Sodium [Moles/Vol] 137 mmol/L 136-145 [facility] Work Phone: WBC (Bld) [#/Vol] 7.4 10*3/uL 4.4-11.0 [facility] Work Phone: Blood erythrocytes count (nu mber/volume)on 06-23-2022 RBC (Bld) [#/Vol] 3.60 10*6/uL 4.2-5.4 [facility] Work Phone: Blood hemoglobin measurement (mass/volume)on 06-23-2022 Hemoglobin (Bld) [Mass/Vol] 10.6 g/dL 12.0-15.0 [facility] Work Phone: Blood platelet mean volumeon 06-23-2022 Platelet mean volume (Bld) [Entitic vol] 9.5 fL 6.2-12.0 [facility] Work Phone: Determination of erythrocyte mean corpuscular volume (MCV)on 06-23-2022 MCV (RBC) [Entitic vol] 89.7 fL 81-[address] [facility] Work Phone: Hematocrit Auto (Bld) [Volum e fraction]on 06-23-2022 Hematocrit (Bld) [Volume fraction] 32.3 % 37-47 [facility] Work Phone: Laboratory - Chemistry and C hemistry - challengeon 06-23-2022 CO2 [Moles/Vol] 28.0 mmol/L 21.0-32.0 [facility] Work Phone: Urea nitrogen/Creatinine [Mass ratio] 19.3 mg/mg 10-20 [facility] Work Phone: Laboratory - Hematology and Cell countson 06-23-2022 Erythrocyte distribution width (RBC) [Entitic vol] 43.2 fL 35.1-43.9 [facility] Work Phone: Erythrocyte distribution width (RBC) [Ratio] 13.2 % 11.6-14.6 [facility] Work Phone: MCH (RBC) [Entitic mass] 29.4 pg 27.0-32.0 [facility] Work Phone: MCHC Auto (RBC) [Mass/Vol]on 06-23-2022 MCHC (RBC) [Mass/Vol] 32.8 g/dL 32-36 [facility] Work Phone: No Panel Informationon 06-23 Estimated GFR (MDRD) Amer 63 mL/min >60 [facility] Work Phone: Comment on above: GFR Calc Estimated GFR (MDRD) Non-Af Amer 52 mL/min >60 [facility] Work Phone: Comment on above: Non- GFR Calc Platelets bldon 06-23-2022 Platelets (Bld) [#/Vol] 348 10*3/uL 150-450 [facility] Work Phone: Serum or plasma calcium tai urement (mass/volume)on 06-23-2022 Calcium [Mass/Vol] 8.8 mg/dL 8.5-10.1 [facility] Work Phone: Serum or plasma creatinine m easurement (mass/volume)on 06-23-2022 Creatinine [Mass/Vol] 1.14 mg/dL 0.55-1.02 [facility] Work Phone: Comment on above: The validity of the calculated GFR & GFRAA in patients over 70 years has not been determined. Clinical correlation is essential. Serum or plasma urea nitroge n measurement (mass/volume)on 06-23-2022 Urea nitrogen [Mass/Vol] 22 mg/dL 7-18 [facility] Work Phone: Thin prep Papanicolaou smear with manual screeningon 06-23-2022 Thin prep Papanicolaou smear with manual screening 10 5-15 [facility] Work Phone: Absolute lymphocyte counton 06-12-2022 Lymphocytes Auto (Unsp spec) [#/Vol] 2.71 10*3/uL 0.83-4.51 [facility] Work Phone: Basophil percentageon 2021 Basophils/100 WBC (Bld) 0.7 % 0-[address] [facility] Work Phone: Chloride [Moles/Vol] 99 mmol/L 98-107 [facility] Work Phone: Eosinophils/100 WBC (Bld) 1.9 % 0-5 [facility] Work Phone: Glucose [Mass/Vol] 244 mg/dL 74-106 [facility] Work Phone: Comment on above: Glucose result great er than or equal to 200 mg/dLsuggests DIABETES MELLITUS per A.D.A. criteria. Neutrophils (Bld) [#/Vol] 4.0 10*3/uL 2.0-7.7 [facility] Work Phone: [phone] Neutrophils/100 WBC (Bld) 53.9 % 47-70 [facility] Work Phone: Potassium [Moles/Vol] 4.1 mmol/L 3.5-5.1 [facility] Work Phone: Sodium [Moles/Vol] 135 mmol/L 136-145 [facility] Work Phone: WBC (Bld) [#/Vol] 7.5 10*3/uL 4.4-11.0 [facility] Work Phone: Blood erythrocytes count (nu mber/volume)on 06-12-2022 RBC (Bld) [#/Vol] 4.04 10*6/uL 4.2-5.4 [facility] Work Phone: Blood hemoglobin measurement (mass/volume)on 06-12-2022 Hemoglobin (Bld) [Mass/Vol] 11.9 g/dL 12.0-15.0 [facility] Work Phone: Blood lymphocytes/100 leukoc yteson 06-12-2022 Lymphocytes/100 WBC (Bld) 36.3 % 19-41 [facility] Work Phone: Blood monocytes/100 leukocyt eson 06-12-2022 Monocytes/100 WBC (Bld) 6.7 % 0-[address] [facility] Work Phone: Blood platelet mean volumeon 06-12-2022 Platelet mean volume (Bld) [Entitic vol] 9.6 fL 6.2-12.0 [facility] Work Phone: Determination of erythrocyte mean corpuscular volume (MCV)on 06-12-2022 MCV (RBC) [Entitic vol] 90.8 fL 81-[address] [facility] Work Phone: Hematocrit Auto (Bld) [Volum e fraction]on 06-12-2022 Hematocrit (Bld) [Volume fraction] 36.7 % 37-47 [facility] Work Phone: Laboratory - Chemistry and C hemistry - challengeon 06-12-2022 CO2 [Moles/Vol] 28.0 mmol/L 21.0-32.0 [facility] Work Phone: Natriuretic peptide B (Bld) [Mass/Vol] 9.7 pg/mL 0-100 [facility] Work Phone: Urea nitrogen/Creatinine [Mass ratio] 20.9 mg/mg 10-20 [facility] Work Phone: Laboratory - Hematology and Cell countson 06-12-2022 Erythrocyte distribution width (RBC) [Entitic vol] 45.7 fL 35.1-43.9 [facility] Work Phone: Erythrocyte distribution width (RBC) [Ratio] 13.8 % 11.6-14.6 [facility] Work Phone: Immature granulocytes/100 WBC (Bld) 0.500 % 0.0-0.9 [facility] Work Phone: Comment on above: IG% - Immature Granu locytes (promyelocytes, myelocytes and metamyelocytes) > 1% indicates that a LEFT SHIFT is Present. MCH (RBC) [Entitic mass] 29.5 pg 27.0-32.0 [facility] Work Phone: Nucleated RBC/100 WBC (Bld) [Ratio] 0 % 0-5 [facility] Work Phone: MCHC Auto (RBC) [Mass/Vol]on 06-12-2022 MCHC (RBC) [Mass/Vol] 32.4 g/dL 32-36 [facility] Work Phone: No Panel Informationon 06-12 Estimated GFR (MDRD) Amer 65 mL/min >60 [facility] Work Phone: Comment on above: GFR Calc Estimated GFR (MDRD) Non-Af Amer 54 mL/min >60 [facility] Work Phone: Comment on above: Non- GFR Calc Platelets bldon 06-12-2022 Platelets (Bld) [#/Vol] 323 10*3/uL 150-450 [facility] Work Phone: Serum or plasma calcium tai urement (mass/volume)on 06-12-2022 Calcium [Mass/Vol] 8.7 mg/dL 8.5-10.1 [facility] Work Phone: Serum or plasma creatinine m easurement (mass/volume)on 06-12-2022 Creatinine [Mass/Vol] 1.10 mg/dL 0.55-1.02 [facility] Work Phone: Comment on above: The validity of the calculated GFR & GFRAA in patients over 70 years has not been determined. Clinical correlation is essential. Serum or plasma urea nitroge n measurement (mass/volume)on 06-12-2022 Urea nitrogen [Mass/Vol] 23 mg/dL 7-18 [facility] Work Phone: Thin prep Papanicolaou smear with manual screeningon 06-12-2022 Thin prep Papanicolaou smear with manual screening 8 5-15 [facility] Work Phone: Basophil percentageon 2021 Chloride [Moles/Vol] 103 mmol/L 98-107 [facility] Work Phone: Glucose [Mass/Vol] 255 mg/dL 74-106 [facility] Work Phone: Comment on above: Glucose result great er than or equal to 200 mg/dLsuggests DIABETES MELLITUS per A.D.A. criteria. Potassium [Moles/Vol] 3.7 mmol/L 3.5-5.1 [facility] Work Phone: Sodium [Moles/Vol] 138 mmol/L 136-145 [facility] Work Phone: WBC (Bld) [#/Vol] 6.8 10*3/uL 4.4-11.0 [facility] Work Phone: Blood erythrocytes count (nu mber/volume)on 06-09-2022 RBC (Bld) [#/Vol] 3.50 10*6/uL 4.2-5.4 [facility] Work Phone: Blood hemoglobin measurement (mass/volume)on 06-09-2022 Hemoglobin (Bld) [Mass/Vol] 10.5 g/dL 12.0-15.0 [facility] Work Phone: Blood platelet mean volumeon 06-09-2022 Platelet mean volume (Bld) [Entitic vol] 9.7 fL 6.2-12.0 [facility] Work Phone: Determination of erythrocyte mean corpuscular volume (MCV)on 06-09-2022 MCV (RBC) [Entitic vol] 93.1 fL 81-99 [facility] Work Phone: Hematocrit Auto (Bld) [Volum e fraction]on 06-09-2022 Hematocrit (Bld) [Volume fraction] 32.6 % 37-47 [facility] Work Phone: Laboratory - Chemistry and C hemistry - challengeon 06-09-2022 CO2 [Moles/Vol] 27.0 mmol/L 21.0-32.0 [facility] Work Phone: Urea nitrogen/Creatinine [Mass ratio] 16.8 mg/mg 10-20 [facility] Work Phone: Laboratory - Hematology and Cell countson 06-09-2022 Erythrocyte distribution width (RBC) [Entitic vol] 47.2 fL 35.1-43.9 [facility] Work Phone: Erythrocyte distribution width (RBC) [Ratio] 13.8 % 11.6-14.6 [facility] Work Phone: MCH (RBC) [Entitic mass] 30.0 pg 27.0-32.0 [facility] Work Phone: MCHC Auto (RBC) [Mass/Vol]on 06-09-2022 MCHC (RBC) [Mass/Vol] 32.2 g/dL 32-36 [facility] Work Phone: No Panel Informationon 06-09 Estimated GFR (MDRD) Amer 68 mL/min >60 [facility] Work Phone: Comment on above: GFR Calc Estimated GFR (MDRD) Non-Af Amer 56 mL/min >60 [facility] Work Phone: Comment on above: Non- GFR Calc Platelets bldon 06-09-2022 Platelets (Bld) [#/Vol] 229 10*3/uL 150-450 [facility] Work Phone: Serum or plasma calcium tai urement (mass/volume)on 06-09-2022 Calcium [Mass/Vol] 8.6 mg/dL 8.5-10.1 [facility] Work Phone: Serum or plasma creatinine m easurement (mass/volume)on 06-09-2022 Creatinine [Mass/Vol] 1.07 mg/dL 0.55-1.02 [facility] Work Phone: Comment on above: The validity of the calculated GFR & GFRAA in patients over 70 years has not been determined. Clinical correlation is essential. Serum or plasma urea nitroge n measurement (mass/volume)on 06-09-2022 Urea nitrogen [Mass/Vol] 18 mg/dL 7-18 [facility] Work Phone: Thin prep Papanicolaou smear with manual screeningon 06-09-2022 Thin prep Papanicolaou smear with manual screening 8 5-15 [facility] Work Phone: Basophil percentageon 2021 Chloride [Moles/Vol] 101 mmol/L 98-107 [facility] Work Phone: Glucose [Mass/Vol] 261 mg/dL 74-106 [facility] Work Phone: Comment on above: Glucose result great er than or equal to 200 mg/dLsuggests DIABETES MELLITUS per A.D.A. criteria. Potassium [Moles/Vol] 4.0 mmol/L 3.5-5.1 [facility] Work Phone: Sodium [Moles/Vol] 134 mmol/L 136-145 [facility] Work Phone: WBC (Bld) [#/Vol] 6.3 10*3/uL 4.4-11.0 [facility] Work Phone: Blood erythrocytes count (nu mber/volume)on 05-26-2022 RBC (Bld) [#/Vol] 3.47 10*6/uL 4.2-5.4 [facility] Work Phone: Blood hemoglobin measurement (mass/volume)on 05-26-2022 Hemoglobin (Bld) [Mass/Vol] 10.6 g/dL 12.0-15.0 [facility] Work Phone: Blood platelet mean volumeon 05-26-2022 Platelet mean volume (Bld) [Entitic vol] 9.6 fL 6.2-12.0 [facility] Work Phone: Determination of erythrocyte mean corpuscular volume (MCV)on 05-26-2022 MCV (RBC) [Entitic vol] 92.2 fL 81-[address] [facility] Work Phone: Hematocrit Auto (Bld) [Volum e fraction]on 05-26-2022 Hematocrit (Bld) [Volume fraction] 32.0 % 37-47 [facility] Work Phone: Laboratory - Chemistry and C hemistry - challengeon 05-26-2022 CO2 [Moles/Vol] 29.0 mmol/L 21.0-32.0 [facility] Work Phone: Urea nitrogen/Creatinine [Mass ratio] 15.7 mg/mg 10-20 [facility] Work Phone: Laboratory - Hematology and Cell countson 05-26-2022 Erythrocyte distribution width (RBC) [Entitic vol] 48.0 fL 35.1-43.9 [facility] Work Phone: Erythrocyte distribution width (RBC) [Ratio] 14.3 % 11.6-14.6 [facility] Work Phone: MCH (RBC) [Entitic mass] 30.5 pg 27.0-32.0 [facility] Work Phone: MCHC Auto (RBC) [Mass/Vol]on 05-26-2022 MCHC (RBC) [Mass/Vol] 33.1 g/dL 32-36 [facility] Work Phone: No Panel Informationon 05-26 Estimated GFR (MDRD) Amer 55 mL/min >60 [facility] Work Phone: Comment on above: GFR Calc Estimated GFR (MDRD) Non-Af Amer 46 mL/min >60 [facility] Work Phone: Comment on above: Non- GFR Calc Platelets bldon 05-26-2022 Platelets (Bld) [#/Vol] 267 10*3/uL 150-450 [facility] Work Phone: Serum or plasma calcium tai urement (mass/volume)on 05-26-2022 Calcium [Mass/Vol] 8.9 mg/dL 8.5-10.1 [facility] Work Phone: Serum or plasma creatinine m easurement (mass/volume)on 05-26-2022 Creatinine [Mass/Vol] 1.27 mg/dL 0.55-1.02 [facility] Work Phone: Comment on above: The validity of the calculated GFR & GFRAA in patients over 70 years has not been determined. Clinical correlation is essential. Serum or plasma urea nitroge n measurement (mass/volume)on 05-26-2022 Urea nitrogen [Mass/Vol] 20 mg/dL 7-18 [facility] Work Phone: Thin prep Papanicolaou smear with manual screeningon 05-26-2022 Thin prep Papanicolaou smear with manual screening 4 5-15 [facility] Work Phone: Absolute lymphocyte counton 05-21-2022 Lymphocytes Auto (Unsp spec) [#/Vol] 2.91 10*3/uL 0.83-4.51 [facility] Work Phone: Basophil percentageon 2021 Basophils/100 WBC (Bld) 0.9 % 0-[address] [facility] Work Phone: Bilirubin [Mass/Vol] 0.20 mg/dL 0.20-1.00 [facility] Work Phone: Comment on above: For patients on eltr ombopag therapy, use of Dimension [place] TBIL is not recommended. Chloride [Moles/Vol] 100 mmol/L 98-107 [facility] Work Phone: Cholesterol [Mass/Vol] 244 mg/dL <200 [facility] Work Phone: Comment on above: <200 mg/dL Desirable 200-240 mg/dL Borderline >240 mg/dL High Risk Eosinophils/100 WBC (Bld) 2.1 % 0-5 [facility] Work Phone: Glucose [Mass/Vol] 197 mg/dL 74-106 [facility] Work Phone: Comment on above: Fasting Glucose resu lt greater than or equal to 126 mg/dL suggests DIABETES MELLITUS per A.D.A. criteria. Neutrophils (Bld) [#/Vol] 2.3 10*3/uL 2.0-7.7 [facility] Work Phone: Neutrophils/100 WBC (Bld) 39.7 % 47-70 [facility] Work Phone: Potassium [Moles/Vol] 4.3 mmol/L 3.5-5.1 [facility] Work Phone: Protein [Mass/Vol] 6.9 g/dL 6.4-8.2 [facility] Work Phone: Sodium [Moles/Vol] 136 mmol/L 136-145 [facility] Work Phone: Triglyceride [Mass/Vol] 337 mg/dL <[address] [facility] Work Phone: Comment on above: The [...] (Bld) [#/Vol] 3.57 10*6/uL 4.2-5.4 [facility] Work Phone: Blood hemoglobin measurement (mass/volume)on 05-21-2022 Hemoglobin (Bld) [Mass/Vol] 10.8 g/dL 12.0-15.0 [facility] Work Phone: Blood lymphocytes/100 leukoc yteson 05-21-2022 Lymphocytes/100 WBC (Bld) 51.4 % 19-41 [facility] Work Phone: Blood monocytes/100 leukocyt eson 05-21-2022 Monocytes/100 WBC (Bld) 5.5 % 0-[address] [facility] Work Phone: Blood platelet mean volumeon 05-21-2022 Platelet mean volume (Bld) [Entitic vol] 9.2 fL 6.2-12.0 [facility] Work Phone: Determination of erythrocyte mean corpuscular volume (MCV)on 05-21-2022 MCV (RBC) [Entitic vol] 92.4 fL 81-[address] [facility] Work Phone: Glucose Glucometer (BldC) [M ass/Vol]on 05-21-2022 Glucose [Mass/Vol] 164 mg/dL 74-106 [facility] Work Phone: Comment on above: MANAGEMENT OF PATIEN T CARE PER NURSING PROTOCOL Hematocrit Auto (Bld) [Volum e fraction]on 05-21-2022 Hematocrit (Bld) [Volume fraction] 33.0 % 37-47 [facility] Work Phone: Laboratory - Chemistry and C hemistry - challengeon 05-21-2022 ALP [Catalytic activity/Vol] 76 U/L 45-117 [facility] Work Phone: ALT [Catalytic activity/Vol] 83 U/L 13-56 [facility] Work Phone: CO2 [Moles/Vol] 31.0 mmol/L 21.0-32.0 [facility] Work Phone: Free T4 [Mass/Vol] 0.14 ng/dL 0.76-1.46 [facility] Work Phone: Globulin (S) [Mass/Vol] 3.8 g/dL 2.2-4.[address] [facility] Work Phone: Urea nitrogen/Creatinine [Mass ratio] 15.0 mg/mg 10-20 [facility] Work Phone: Laboratory - Hematology and Cell countson 05-21-2022 Erythrocyte distribution width (RBC) [Entitic vol] 48.4 fL 35.1-43.9 [facility] Work Phone: Erythrocyte distribution width (RBC) [Ratio] 14.2 % 11.6-14.6 [facility] Work Phone: Immature granulocytes/100 WBC (Bld) 0.400 % 0.0-0.9 [facility] Work Phone: Comment on above: IG% - Immature Granu locytes (promyelocytes, myelocytes and metamyelocytes) > 1% indicates that a LEFT SHIFT is Present. MCH (RBC) [Entitic mass] 30.3 pg 27.0-32.0 [facility] Work Phone: Nucleated RBC/100 WBC (Bld) [Ratio] 0 % 0-5 [facility] Work Phone: MCHC Auto (RBC) [Mass/Vol]on 05-21-2022 MCHC (RBC) [Mass/Vol] 32.7 g/dL 32-36 [facility] Work Phone: No Panel Informationon 05-21 Estimated Creatinine Clearance Calc 36.71 ml/min [facility] Work Phone: Estimated GFR (MDRD) Amer 59 mL/min >60 [facility] Work Phone: Comment on above: GFR Calc Estimated GFR (MDRD) Non-Af Amer 49 mL/min >60 [facility] Work Phone: Comment on above: Non- GFR Calc Troponin I High Sensitivity 32 pg/mL 3.0-54.0 [facility] Work Phone: Comment on above: Please Note: New Carolann t Units and Gender Specific Reference Ranges. For more information see Policy Stat Procedure [place] High Sensitivity Troponin (TNIH) and attachments. Troponin I High Sensitivity 32 pg/mL 3.0-54.0 [facility] Work Phone: Comment on above: Please Note: New Carolann t Units and Gender Specific Reference Ranges. For more information see Policy Stat Procedure [place] High Sensitivity Troponin (TNIH) and attachments. Platelets bldon 05-21-2022 Platelets (Bld) [#/Vol] 240 10*3/uL 150-450 [facility] Work Phone: Serum or plasma albumin tai urement (mass/volume)on 05-21-2022 Albumin [Mass/Vol] 3.1 g/dL 3.2-5.0 [facility] Work Phone: Serum or plasma albumin/glob ulin mass ratioon 05-21-2022 Albumin/Globulin [Mass ratio] 0.8 {ratio} 0.9-2.4 [facility] Work Phone: Serum or plasma calcium tai urement (mass/volume)on 05-21-2022 Calcium [Mass/Vol] 8.6 mg/dL 8.5-10.1 [facility] Work Phone: Serum or plasma cholesterol in HDL measurement (mass/volume)on 05-21-2022 Cholesterol in HDL [Mass/Vol] 31 mg/dL >40 [facility] Work Phone: Comment on above: The drugs N-Acetylcy steine and Metamizole may falsely depress this assay. Reference Range HDL <40 mg/dL Low HDL Cholesterol HDL >or= 60 mg/dL High HDL Cholesterol Serum or plasma cholesterol in VLDL measurement (mass/volume)on 05-21-2022 Cholesterol in VLDL [Mass/Vol] 67 mg/dL 5-40 [facility] Work Phone: Serum or plasma creatinine m easurement (mass/volume)on 05-21-2022 Creatinine [Mass/Vol] 1.20 mg/dL 0.55-1.02 [facility] Work Phone: Comment on above: The validity of the calculated GFR & GFRAA in patients over 70 years has not been determined. Clinical correlation is essential. Serum or plasma low density lipoprotein (LDL) cholesterol measurement (mass/volume)on 05-21-2022 Cholesterol in LDL [Mass/Vol] 146 mg/dL 0-130 [facility] Work Phone: Serum or plasma urea nitroge n measurement (mass/volume)on 05-21-2022 Urea nitrogen [Mass/Vol] 18 mg/dL 7-18 [facility] Work Phone: Thin prep Papanicolaou smear with manual screeningon 05-21-2022 Thin prep Papanicolaou smear with manual screening 42 U/L 15-37 [facility] Work Phone: Thin prep Papanicolaou smear with manual screening 5 5-15 [facility] Work Phone: Absolute lymphocyte counton 05-20-2022 Lymphocytes Auto (Unsp spec) [#/Vol] 2.77 10*3/uL 0.83-4.51 [facility] Work Phone: Basophil percentageon 2021 Basophils/100 WBC (Bld) 0.9 % 0-[address] [facility] Work Phone: Chloride [Moles/Vol] 99 mmol/L 98-107 [facility] Work Phone: Eosinophils/100 WBC (Bld) 2.0 % 0-5 [facility] Work Phone: Glucose [Mass/Vol] 322 mg/dL 74-106 [facility] Work Phone: Comment on above: Glucose result great er than or equal to 200 mg/dLsuggests DIABETES MELLITUS per A.D.A. criteria. Neutrophils (Bld) [#/Vol] 3.3 10*3/uL 2.0-7.7 [facility] Work Phone: Neutrophils/100 WBC (Bld) 49.7 % 47-70 [facility] Work Phone: Potassium [Moles/Vol] 4.3 mmol/L 3.5-5.1 [facility] Work Phone: Sodium [Moles/Vol] 135 mmol/L 136-145 [facility] Work Phone: [phone] WBC (Bld) [#/Vol] 6.6 10*3/uL 4.4-11.0 [facility] Work Phone: Blood erythrocytes count (nu mber/volume)on 05-20-2022 RBC (Bld) [#/Vol] 3.54 10*6/uL 4.2-5.4 [facility] Work Phone: [phone] Blood hemoglobin measurement (mass/volume)on 05-20-2022 Hemoglobin (Bld) [Mass/Vol] 10.9 g/dL 12.0-15.0 [facility] Work Phone: Blood lymphocytes/100 leukoc yteson 05-20-2022 Lymphocytes/100 WBC (Bld) 42.3 % 19-41 [facility] Work Phone: Blood monocytes/100 leukocyt eson 05-20-2022 Monocytes/100 WBC (Bld) 4.6 % 0-[address] [facility] Work Phone: Blood platelet mean volumeon 05-20-2022 Platelet mean volume (Bld) [Entitic vol] 9.5 fL 6.2-12.0 [facility] Work Phone: Determination of erythrocyte mean corpuscular volume (MCV)on 05-20-2022 MCV (RBC) [Entitic vol] 91.5 fL 81-[address] [facility] Work Phone: Hematocrit Auto (Bld) [Volum e fraction]on 05-20-2022 Hematocrit (Bld) [Volume fraction] 32.4 % 37-47 [facility] Work Phone: INR in Blood by Coagulation assayon 05-20-2022 INR Coag (Bld) [Relative time] 1.0 {INR} [facility] Work Phone: Laboratory - Chemistry and C hemistry - challengeon 05-20-2022 CO2 [Moles/Vol] 30.0 mmol/L 21.0-32.0 [facility] Work Phone: Magnesium [Mass/Vol] 2.1 mg/dL 1.6-2.6 [facility] Work Phone: Urea nitrogen/Creatinine [Mass ratio] 15.4 mg/mg 10-20 [facility] Work Phone: Laboratory - Coagulationon 0 05-20-2022 aPTT Coag (Bld) [Time] 29.0 s 24.1-36.2 [facility] Work Phone: PT Coag (PPP) [Time] 13.1 s 11.7-14.9 [facility] Work Phone: Laboratory - Drug toxicology on 05-20-2022 Amphetamines Ql (U) Negative <1000 ng/mL [facility] Work Phone: Benzodiazepines Ql (U) Positive < 200 ng/mL [facility] Work Phone: Cannabinoids Screen Ql (U) Negative < 50 ng/mL [facility] Work Phone: Cocaine Ql (U) Negative < 300 ng/mL [facility] Work Phone: Opiates Ql (U) Negative < 300 ng/mL [facility] Work Phone: Laboratory - Hematology and Cell countson 05-20-2022 Erythrocyte distribution width (RBC) [Entitic vol] 47.6 fL 35.1-43.9 [facility] Work Phone: Erythrocyte distribution width (RBC) [Ratio] 14.3 % 11.6-14.6 [facility] Work Phone: [phone] Immature granulocytes/100 WBC (Bld) 0.500 % 0.0-0.9 [facility] Work Phone: Comment on above: IG% - Immature Granu locytes (promyelocytes, myelocytes and metamyelocytes) > 1% indicates that a LEFT SHIFT is Present. MCH (RBC) [Entitic mass] 30.8 pg 27.0-32.0 [facility] Work Phone: Nucleated RBC/100 WBC (Bld) [Ratio] 0 % 0-5 [facility] Work Phone: MCHC Auto (RBC) [Mass/Vol]on 05-20-2022 MCHC (RBC) [Mass/Vol] 33.6 g/dL 32-36 [facility] Work Phone: No Panel Informationon 05-20 MDMA (Ecstasy) Screen Negative < 500 ng/mL [facility] Work Phone: Urine Barbiturates Screen Negative < 200 ng/mL [facility] Work Phone: Urine Drug Screen Comment [facility] Work Phone: Comment on above: [...] Urine Methadone Screen Negative < 300 ng/mL [facility] Work Phone: Estimated Creatinine Clearance Calc 35.81 ml/min [facility] Work Phone: Estimated GFR (MDRD) Amer 58 mL/min >60 [facility] Work Phone: Comment on above: GFR Calc Estimated GFR (MDRD) Non-Af Amer 48 mL/min >60 [facility] Work Phone: Comment on above: Non- GFR Calc Thyroid Stimulating Hormone (TSH) 109.00 uIU/mL 0.358-3.74 [facility] Work Phone: Platelets bldon 05-20-2022 Platelets (Bld) [#/Vol] 291 10*3/uL 150-450 [facility] Work Phone: Serum or plasma calcium tai urement (mass/volume)on 07-27-2022 Calcium [Mass/Vol] 9.2 mg/dL 8.5-10.1 [facility] Work Phone: Serum or plasma creatinine m easurement (mass/volume)on 05-20-2022 Creatinine [Mass/Vol] 1.23 mg/dL 0.55-1.02 [facility] Work Phone: Comment on above: The validity of the calculated GFR & GFRAA in patients over 70 years has not been determined. Clinical correlation is essential. Serum or plasma urea nitroge n measurement (mass/volume)on 05-20-2022 Urea nitrogen [Mass/Vol] 19 mg/dL 7-18 [facility] Work Phone: Thin prep Papanicolaou smear with manual screeningon 05-20-2022 Thin prep Papanicolaou smear with manual screening 6 5-15 [facility] Work Phone: Urine phencyclidine (PCP) de tectionon 05-20-2022 Phencyclidine Ql (U) Negative < 25 ng/mL [facility] Work Phone: Basophil percentageon 2021 Chloride [Moles/Vol] 99 mmol/L 98-107 [facility] Work Phone: Glucose [Mass/Vol] 161 mg/dL 74-106 [facility] Work Phone: Comment on above: Fasting Glucose resu lt greater than or equal to 126 mg/dL suggests DIABETES MELLITUS per A.D.A. criteria. Potassium [Moles/Vol] 4.0 mmol/L 3.5-5.1 [facility] Work Phone: Sodium [Moles/Vol] 135 mmol/L 136-145 [facility] Work Phone: WBC (Bld) [#/Vol] 8.6 10*3/uL 4.4-11.0 [facility] Work Phone: Blood erythrocytes count (nu mber/volume)on 05-12-2022 RBC (Bld) [#/Vol] 3.83 10*6/uL 4.2-5.4 [facility] Work Phone: Blood hemoglobin measurement (mass/volume)on 05-12-2022 Hemoglobin (Bld) [Mass/Vol] 11.7 g/dL 12.0-15.0 [facility] Work Phone: Blood platelet mean volumeon 05-12-2022 Platelet mean volume (Bld) [Entitic vol] 9.0 fL 6.2-12.0 [facility] Work Phone: Determination of erythrocyte mean corpuscular volume (MCV)on 05-12-2022 MCV (RBC) [Entitic vol] 92.7 fL 81-[address] [facility] Work Phone: Hematocrit Auto (Bld) [Volum e fraction]on 05-12-2022 Hematocrit (Bld) [Volume fraction] 35.5 % 37-47 [facility] Work Phone: Laboratory - Chemistry and C hemistry - challengeon 05-12-2022 CO2 [Moles/Vol] 30.0 mmol/L 21.0-32.0 [facility] Work Phone: Urea nitrogen/Creatinine [Mass ratio] 21.8 mg/mg 10-20 [facility] Work Phone: Laboratory - Hematology and Cell countson 05-12-2022 Erythrocyte distribution width (RBC) [Entitic vol] 48.8 fL 35.1-43.9 [facility] Work Phone: Erythrocyte distribution width (RBC) [Ratio] 14.5 % 11.6-14.6 [facility] Work Phone: MCH (RBC) [Entitic mass] 30.5 pg 27.0-32.0 [facility] Work Phone: MCHC Auto (RBC) [Mass/Vol]on 05-12-2022 MCHC (RBC) [Mass/Vol] 33.0 g/dL 32-36 [facility] Work Phone: No Panel Informationon 05-12 Estimated GFR (MDRD) Amer 60 mL/min >60 [facility] Work Phone: Comment on above: GFR Calc Estimated GFR (MDRD) Non-Af Amer 49 mL/min >60 [facility] Work Phone: Comment on above: Non- GFR Calc Platelets bldon 05-12-2022 Platelets (Bld) [#/Vol] 287 10*3/uL 150-450 [facility] Work Phone: Serum or plasma calcium tai urement (mass/volume)on 05-12-2022 Calcium [Mass/Vol] 9.7 mg/dL 8.5-10.1 [facility] Work Phone: Serum or plasma creatinine m easurement (mass/volume)on 05-12-2022 Creatinine [Mass/Vol] 1.19 mg/dL 0.55-1.02 [facility] Work Phone: Comment on above: The validity of the calculated GFR & GFRAA in patients over 70 years has not been determined. Clinical correlation is essential. Serum or plasma urea nitroge n measurement (mass/volume)on 05-12-2022 Urea nitrogen [Mass/Vol] 26 mg/dL 7-18 [facility] Work Phone: Thin prep Papanicolaou smear with manual screeningon 05-12-2022 Thin prep Papanicolaou smear with manual screening 6 5-15 [facility] Work Phone: Absolute lymphocyte counton 05-03-2022 Lymphocytes Auto (Unsp spec) [#/Vol] 2.67 10*3/uL 0.83-4.51 [facility] Work Phone: Basophil percentageon 2021 Basophils/100 WBC (Bld) 1.2 % 0-[address] [facility] Work Phone: Chloride [Moles/Vol] 100 mmol/L 98-107 [facility] Work Phone: Eosinophils/100 WBC (Bld) 1.5 % 0-5 [facility] Work Phone: Glucose [Mass/Vol] 130 mg/dL 74-106 [facility] Work Phone: Comment on above: Fasting Glucose resu lt greater than or equal to 126 mg/dL suggests DIABETES MELLITUS per A.D.A. criteria. Neutrophils (Bld) [#/Vol] 2.7 10*3/uL 2.0-7.7 [facility] Work Phone: Neutrophils/100 WBC (Bld) 45.1 % 47-70 [facility] Work Phone: [phone] Potassium [Moles/Vol] 4.0 mmol/L 3.5-5.1 [facility] Work Phone: Sodium [Moles/Vol] 136 mmol/L 136-145 [facility] Work Phone: WBC (Bld) [#/Vol] 5.9 10*3/uL 4.4-11.0 [facility] Work Phone: Blood erythrocytes count (nu mber/volume)on 05-03-2022 RBC (Bld) [#/Vol] 3.46 10*6/uL 4.2-5.4 [facility] Work Phone: Blood hemoglobin measurement (mass/volume)on 05-03-2022 Hemoglobin (Bld) [Mass/Vol] 10.6 g/dL 12.0-15.0 [facility] Work Phone: Blood lymphocytes/100 leukoc yteson 05-03-2022 Lymphocytes/100 WBC (Bld) 45.1 % 19-41 [facility] Work Phone: Blood monocytes/100 leukocyt eson 05-03-2022 Monocytes/100 WBC (Bld) 6.3 % 0-[address] [facility] Work Phone: Blood platelet mean volumeon 05-03-2022 Platelet mean volume (Bld) [Entitic vol] 9.4 fL 6.2-12.0 [facility] Work Phone: Determination of erythrocyte mean corpuscular volume (MCV)on 05-03-2022 MCV (RBC) [Entitic vol] 91.3 fL 81-[address] [facility] Work Phone: Hematocrit Auto (Bld) [Volum e fraction]on 05-03-2022 Hematocrit (Bld) [Volume fraction] 31.6 % 37-47 [facility] Work Phone: Laboratory - Chemistry and C hemistry - challengeon 05-03-2022 CO2 [Moles/Vol] 29.0 mmol/L 21.0-32.0 [facility] Work Phone: Urea nitrogen/Creatinine [Mass ratio] 19.3 mg/mg 10-20 [facility] Work Phone: Laboratory - Hematology and Cell countson 05-03-2022 Erythrocyte distribution width (RBC) [Entitic vol] 46.8 fL 35.1-43.9 [facility] Work Phone: Erythrocyte distribution width (RBC) [Ratio] 14.4 % 11.6-14.6 [facility] Work Phone: Immature granulocytes/100 WBC (Bld) 0.800 % 0.0-0.9 [facility] Work Phone: Comment on above: IG% - Immature Granu locytes (promyelocytes, myelocytes and metamyelocytes) > 1% indicates that a LEFT SHIFT is Present. MCH (RBC) [Entitic mass] 30.6 pg 27.0-32.0 [facility] Work Phone: Nucleated RBC/100 WBC (Bld) [Ratio] 0.3 % 0-5 [facility] Work Phone: MCHC Auto (RBC) [Mass/Vol]on 05-03-2022 MCHC (RBC) [Mass/Vol] 33.5 g/dL 32-36 [facility] Work Phone: No Panel Informationon 05-03 Troponin I High Sensitivity 57 pg/mL 3.0-54.0 [facility] Work Phone: Comment on above: Please Note: New Carolann t Units and Gender Specific Reference Ranges. For more information see Policy Stat Procedure [place] High Sensitivity Troponin (TNIH) and attachments. Estimated Creatinine Clearance Calc 37.01 ml/min [facility] Work Phone: Estimated GFR (MDRD) Amer 60 mL/min >60 [facility] Work Phone: Comment on above: GFR Calc Estimated GFR (MDRD) Non-Af Amer 49 mL/min >60 [facility] Work Phone: Comment on above: Non- GFR Calc Platelets bldon 05-03-2022 Platelets (Bld) [#/Vol] 267 10*3/uL 150-450 [facility] Work Phone: Serum or plasma calcium tai urement (mass/volume)on 05-03-2022 Calcium [Mass/Vol] 9.1 mg/dL 8.5-10.1 [facility] Work Phone: Serum or plasma creatinine m easurement (mass/volume)on 05-03-2022 Creatinine [Mass/Vol] 1.19 mg/dL 0.55-1.02 [facility] Work Phone: Comment on above: The validity of the calculated GFR & GFRAA in patients over 70 years has not been determined. Clinical correlation is essential. Serum or plasma urea nitroge n measurement (mass/volume)on 05-03-2022 Urea nitrogen [Mass/Vol] 23 mg/dL 7-18 [facility] Work Phone: Thin prep Papanicolaou smear with manual screeningon 05-03-2022 Thin prep Papanicolaou smear with manual screening 7 5-15 [facility] Work Phone: Basophil percentageon 2021 Chloride [Moles/Vol] 92 mmol/L 98-107 [facility] Work Phone: Glucose [Mass/Vol] 66 mg/dL 74-106 [facility] Work Phone: Potassium [Moles/Vol] 4.3 mmol/L 3.5-5.1 [facility] Work Phone: Sodium [Moles/Vol] 131 mmol/L 136-145 [facility] Work Phone: WBC (Bld) [#/Vol] 6.1 10*3/uL 4.4-11.0 [facility] Work Phone: Blood erythrocytes count (nu mber/volume)on 04-28-2022 RBC (Bld) [#/Vol] 3.66 10*6/uL 4.2-5.4 [facility] Work Phone: Blood hemoglobin measurement (mass/volume)on 04-28-2022 Hemoglobin (Bld) [Mass/Vol] 11.1 g/dL 12.0-15.0 [facility] Work Phone: Blood platelet mean volumeon 04-28-2022 Platelet mean volume (Bld) [Entitic vol] 9.5 fL 6.2-12.0 [facility] Work Phone: Determination of erythrocyte mean corpuscular volume (MCV)on 04-28-2022 MCV (RBC) [Entitic vol] 90.7 fL 81-[address] [facility] Work Phone: Hematocrit Auto (Bld) [Volum e fraction]on 04-28-2022 Hematocrit (Bld) [Volume fraction] 33.2 % 37-47 [facility] Work Phone: Laboratory - Chemistry and C hemistry - challengeon 04-28-2022 CO2 [Moles/Vol] 31.0 mmol/L 21.0-32.0 [facility] Work Phone: Urea nitrogen/Creatinine [Mass ratio] 21.4 mg/mg 10-20 [facility] Work Phone: Laboratory - Hematology and Cell countson 04-28-2022 Erythrocyte distribution width (RBC) [Entitic vol] 46.7 fL 35.1-43.9 [facility] Work Phone: Erythrocyte distribution width (RBC) [Ratio] 14.2 % 11.6-14.6 [facility] Work Phone: MCH (RBC) [Entitic mass] 30.3 pg 27.0-32.0 [facility] Work Phone: MCHC Auto (RBC) [Mass/Vol]on 04-28-2022 MCHC (RBC) [Mass/Vol] 33.4 g/dL 32-36 [facility] Work Phone: No Panel Informationon 04-28 Estimated GFR (MDRD) Amer 71 mL/min >60 [facility] Work Phone: Comment on above: GFR Calc Estimated GFR (MDRD) Non-Af Amer 58 mL/min >60 [facility] Work Phone: Comment on above: Non- GFR Calc Platelets bldon 04-28-2022 Platelets (Bld) [#/Vol] 262 10*3/uL 150-450 [facility] Work Phone: Serum or plasma calcium tai urement (mass/volume)on 04-28-2022 Calcium [Mass/Vol] 9.4 mg/dL 8.5-10.1 [facility] Work Phone: Serum or plasma creatinine m easurement (mass/volume)on 04-28-2022 Creatinine [Mass/Vol] 1.03 mg/dL 0.55-1.02 [facility] Work Phone: Comment on above: The validity of the calculated GFR & GFRAA in patients over 70 years has not been determined. Clinical correlation is essential. Serum or plasma urea nitroge n measurement (mass/volume)on 04-28-2022 Urea nitrogen [Mass/Vol] 22 mg/dL 7-18 [facility] Work Phone: Thin prep Papanicolaou smear with manual screeningon 04-28-2022 Thin prep Papanicolaou smear with manual screening 8 5-15 [facility] Work Phone: Basophil percentageon 2021 Bilirubin [Mass/Vol] 0.20 mg/dL 0.20-1.00 [facility] Work Phone: Comment on above: For patients on eltr ombopag therapy, use of Dimension [place] TBIL is not recommended. Cholesterol [Mass/Vol] 254 mg/dL <200 [facility] Work Phone: Comment on above: <200 mg/dL Desirable 200-240 mg/dL Borderline >240 mg/dL High Risk Protein [Mass/Vol] 7.4 g/dL 6.4-8.2 [facility] Work Phone: Triglyceride [Mass/Vol] 250 mg/dL <[address] [facility] Work Phone: Comment on above: The drugs N-Acetylcy steine and Metamizole may falsely depress this assay.Serum Triglycerides Reference Interval Normal <150 mg/dL Borderline high 150 - 199 mg/dL High 200 - 499 mg/dL Very High > or = 500 mg/dL Direct bilirubinon 2 Bilirubin.direct [Mass/Vol] 0.08 mg/dL 0.00-0.30 [facility] Work Phone: Glucose Glucometer (BldC) [...] 04-25-2022 ALP [Catalytic activity/Vol] 123 U/L 45-117 [facility] Work Phone: ALT [Catalytic activity/Vol] 157 U/L 13-56 [facility] Work Phone: Globulin (S) [Mass/Vol] 4.1 g/dL 2.2-4.2 [facility] Work Phone: Serum or plasma albumin tai urement (mass/volume)on 04-25-2022 Albumin [Mass/Vol] 3.3 g/dL 3.2-5.0 [facility] Work Phone: Serum or plasma cholesterol in HDL measurement (mass/volume)on 04-25-2022 Cholesterol in HDL [Mass/Vol] 41 mg/dL >40 [facility] Work Phone: Comment on above: The drugs N-Acetylcy steine and Metamizole may falsely depress this assay. Reference Range HDL <40 mg/dL Low HDL Cholesterol HDL >or= 60 mg/dL High HDL Cholesterol Serum or plasma cholesterol in VLDL measurement (mass/volume)on 04-25-2022 Cholesterol in VLDL [Mass/Vol] 50 mg/dL 5-40 [facility] Work Phone: Serum or plasma low density lipoprotein (LDL) cholesterol measurement (mass/volume)on 04-25-2022 Cholesterol in LDL [Mass/Vol] 163 mg/dL 0-130 [facility] Work Phone: Thin prep Papanicolaou smear with manual screeningon 04-25-2022 Thin prep Papanicolaou smear with manual screening 124 U/L 15-37 [facility] Work Phone: Whole blood hemoglobin A1c/t otal hemoglobin ratio (mass fraction)on 04-25-2022 HbA1c (Bld) [Mass fraction] 9.4 % 3.8-5.6 [facility] Work Phone: Comment on above: Normal < 5.7 % Predi abetic 5.7 - 6.4 % Diabetic >or= 6.5 % Please note range changes. Absolute lymphocyte counton 04-24-2022 Lymphocytes Auto (Unsp spec) [#/Vol] 2.29 10*3/uL 0.83-4.51 [facility] Work Phone: Basophil percentageon 2021 Basophils/100 WBC (Bld) 1.1 % 0-[address] [facility] Work Phone: Chloride [Moles/Vol] 101 mmol/L 98-107 [facility] Work Phone: Eosinophils/100 WBC (Bld) 2.2 % 0-5 [facility] Work Phone: Glucose [Mass/Vol] 180 mg/dL 74-106 [facility] Work Phone: [phone] Comment on above: Fasting Glucose resu lt greater than or equal to 126 mg/dL suggests DIABETES MELLITUS per A.D.A. criteria. Neutrophils (Bld) [#/Vol] 2.6 10*3/uL 2.0-7.7 [facility] Work Phone: Neutrophils/100 WBC (Bld) 49.1 % 47-70 [facility] Work Phone: Potassium [Moles/Vol] 3.9 mmol/L 3.5-5.1 [facility] Work Phone: Sodium [Moles/Vol] 138 mmol/L 136-145 [facility] Work Phone: WBC (Bld) [#/Vol] 5.4 10*3/uL 4.4-11.0 [facility] Work Phone: Blood erythrocytes count (nu mber/volume)on 04-24-2022 RBC (Bld) [#/Vol] 3.73 10*6/uL 4.2-5.4 [facility] Work Phone: Blood hemoglobin measurement (mass/volume)on 04-24-2022 Hemoglobin (Bld) [Mass/Vol] 11.4 g/dL 12.0-15.0 [facility] Work Phone: Blood lymphocytes/100 leukoc yteson 04-24-2022 Lymphocytes/100 WBC (Bld) 42.6 % 19-41 [facility] Work Phone: [phone] Blood monocytes/100 leukocyt eson 04-24-2022 Monocytes/100 WBC (Bld) 3.9 % 0-[address] [facility] Work Phone: Blood platelet mean volumeon 04-24-2022 Platelet mean volume (Bld) [Entitic vol] 9.5 fL 6.2-12.0 [facility] Work Phone: Determination of erythrocyte mean corpuscular volume (MCV)on 04-24-2022 MCV (RBC) [Entitic vol] 91.4 fL 81-[address] [facility] Work Phone: Hematocrit Auto (Bld) [Volum e fraction]on 04-24-2022 Hematocrit (Bld) [Volume fraction] 34.1 % 37-47 [facility] Work Phone: Laboratory - Chemistry and C hemistry - challengeon 04-24-2022 CO2 [Moles/Vol] 28.0 mmol/L 21.0-32.0 [facility] Work Phone: Urea nitrogen/Creatinine [Mass ratio] 15.7 mg/mg 10-20 [facility] Work Phone: Laboratory - Hematology and Cell countson 04-24-2022 Erythrocyte distribution width (RBC) [Entitic vol] 46.6 fL 35.1-43.9 [facility] Work Phone: Erythrocyte distribution width (RBC) [Ratio] 14.0 % 11.6-14.6 [facility] Work Phone: Immature granulocytes/100 WBC (Bld) 1.100 % 0.0-0.9 [facility] Work Phone: Comment on above: IG% - Immature Granu locytes (promyelocytes, myelocytes and metamyelocytes) > 1% indicates that a LEFT SHIFT is Present. MCH (RBC) [Entitic mass] 30.6 pg 27.0-32.0 [facility] Work Phone: Nucleated RBC/100 WBC (Bld) [Ratio] 0 % 0-5 [facility] Work Phone: MCHC Auto (RBC) [Mass/Vol]on 04-24-2022 MCHC (RBC) [Mass/Vol] 33.4 g/dL 32-36 [facility] Work Phone: No Panel Informationon 04-24 Troponin I High Sensitivity 57 pg/mL 3.0-54.0 [facility] Work Phone: Comment on above: Please Note: New Carolann t Units and Gender Specific Reference Ranges. For more information see Policy Stat Procedure [place] High Sensitivity Troponin (TNIH) and attachments. D-Dimer Quantitative (PE/DVT) 0.32 FEU/ug/m 0.27-0.49 [facility] Work Phone: Comment on above: NORMAL D-Dimer level (<0.50) indicates no DVT or PE. Estimated Creatinine Clearance Calc 40.78 ml/min [facility] Work Phone: Estimated GFR (MDRD) Amer 67 mL/min >60 [facility] Work Phone: Comment on above: GFR Calc Estimated GFR (MDRD) Non-Af Amer 55 mL/min >60 [facility] Work Phone: Comment on above: Non- GFR Calc Platelets bldon 04-24-2022 Platelets (Bld) [#/Vol] 254 10*3/uL 150-450 [facility] Work Phone: Serum or plasma calcium tai urement (mass/volume)on 04-24-2022 Calcium [Mass/Vol] 9.3 mg/dL 8.5-10.1 [facility] Work Phone: Serum or plasma creatinine m easurement (mass/volume)on 04-24-2022 Creatinine [Mass/Vol] 1.08 mg/dL 0.55-1.02 [facility] Work Phone: Comment on above: The validity of the calculated GFR & GFRAA in patients over 70 years has not been determined. Clinical correlation is essential. Serum or plasma urea nitroge n measurement (mass/volume)on 04-24-2022 Urea nitrogen [Mass/Vol] 17 mg/dL 7-18 [facility] Work Phone: Thin prep Papanicolaou smear with manual screeningon 04-24-2022 Thin prep Papanicolaou smear with manual screening 9 5-15 [facility] Work Phone: Absolute lymphocyte counton 04-17-2022 Lymphocytes Auto (Unsp spec) [#/Vol] 2.66 10*3/uL 0.83-4.51 [facility] Work Phone: Basophil percentageon 2021 Basophils/100 WBC (Bld) 1.1 % 0-[address] [facility] Work Phone: [phone] Chloride [Moles/Vol] 100 mmol/L 98-107 [facility] Work Phone: [phone] Eosinophils/100 WBC (Bld) 3.0 % 0-5 [facility] Work Phone: [phone] Glucose [Mass/Vol] 86 mg/dL 74-106 [facility] Work Phone: Neutrophils (Bld) [#/Vol] 2.1 10*3/uL 2.0-7.7 [facility] Work Phone: [phone] Neutrophils/100 WBC (Bld) 39.4 % 47-70 [facility] Work Phone: [phone] Potassium [Moles/Vol] 3.8 mmol/L 3.5-5.1 [facility] Work Phone: [phone] Sodium [Moles/Vol] 136 mmol/L 136-145 [facility] Work Phone: WBC (Bld) [#/Vol] 5.4 10*3/uL 4.4-11.0 [facility] Work Phone: [phone] Blood erythrocytes count (nu mber/volume)on 04-17-2022 RBC (Bld) [#/Vol] 3.75 10*6/uL 4.2-5.4 [facility] Work Phone: Blood hemoglobin measurement (mass/volume)on 04-17-2022 Hemoglobin (Bld) [Mass/Vol] 11.5 g/dL 12.0-15.0 [facility] Work Phone: [phone] Blood lymphocytes/100 leukoc yteson 04-17-2022 Lymphocytes/100 WBC (Bld) 49.4 % 19-41 [facility] Work Phone: [phone] Blood monocytes/100 leukocyt eson 04-17-2022 Monocytes/100 WBC (Bld) 5.6 % 0-[address] [facility] Work Phone: Blood platelet mean volumeon 04-17-2022 Platelet mean volume (Bld) [Entitic vol] 9.3 fL 6.2-12.0 [facility] Work Phone: Determination of erythrocyte mean corpuscular volume (MCV)on 04-17-2022 MCV (RBC) [Entitic vol] 91.7 fL 81-[address] [facility] Work Phone: Hematocrit Auto (Bld) [Volum e fraction]on 04-17-2022 Hematocrit (Bld) [Volume fraction] 34.4 % 37-47 [facility] Work Phone: Laboratory - Chemistry and C hemistry - challengeon 04-17-2022 CO2 [Moles/Vol] 28.0 mmol/L 21.0-32.0 [facility] Work Phone: Urea nitrogen/Creatinine [Mass ratio] 14.8 mg/mg 10-20 [facility] Work Phone: Laboratory - Hematology and Cell countson 04-17-2022 Erythrocyte distribution width (RBC) [Entitic vol] 46.6 fL 35.1-43.9 [facility] Work Phone: Erythrocyte distribution width (RBC) [Ratio] 13.9 % 11.6-14.6 [facility] Work Phone: Immature granulocytes/100 WBC (Bld) 1.500 % 0.0-0.9 [facility] Work Phone: Comment on above: IG% - Immature Granu locytes (promyelocytes, myelocytes and metamyelocytes) > 1% indicates that a LEFT SHIFT is Present. MCH (RBC) [Entitic mass] 30.7 pg 27.0-32.0 [facility] Work Phone: Nucleated RBC/100 WBC (Bld) [Ratio] 0 % 0-5 [facility] Work Phone: MCHC Auto (RBC) [Mass/Vol]on 04-17-2022 MCHC (RBC) [Mass/Vol] 33.4 g/dL 32-36 [facility] Work Phone: No Panel Informationon 04-17 Estimated GFR (MDRD) Amer 55 mL/min >60 [facility] Work Phone: Comment on above: GFR Calc Estimated GFR (MDRD) Non-Af Amer 45 mL/min >60 [facility] Work Phone: Comment on above: Non- GFR Calc Platelets bldon 04-17-2022 Platelets (Bld) [#/Vol] 244 10*3/uL 150-450 [facility] Work Phone: Serum or plasma calcium tai urement (mass/volume)on 04-17-2022 Calcium [Mass/Vol] 9.1 mg/dL 8.5-10.1 [facility] Work Phone: Serum or plasma creatinine m easurement (mass/volume)on 04-17-2022 Creatinine [Mass/Vol] 1.28 mg/dL 0.55-1.02 [facility] Work Phone: Comment on above: The validity of the calculated GFR & GFRAA in patients over 70 years has not been determined. Clinical correlation is essential. Serum or plasma urea nitroge n measurement (mass/volume)on 04-17-2022 Urea nitrogen [Mass/Vol] 19 mg/dL 7-18 [facility] Work Phone: Thin prep Papanicolaou smear with manual screeningon 04-17-2022 Thin prep Papanicolaou smear with manual screening 8 5-15 [facility] Work Phone: Basophil percentageon 2021 Chloride [Moles/Vol] 99 mmol/L 98-107 [facility] Work Phone: Glucose [Mass/Vol] 59 mg/dL 74-106 [facility] Work Phone: Potassium [Moles/Vol] 4.0 mmol/L 3.5-5.1 [facility] Work Phone: Sodium [Moles/Vol] 135 mmol/L 136-145 [facility] Work Phone: WBC (Bld) [#/Vol] 5.8 10*3/uL 4.4-11.0 [facility] Work Phone: Blood erythrocytes count (nu mber/volume)on 04-13-2022 RBC (Bld) [#/Vol] 3.84 10*6/uL 4.2-5.4 [facility] Work Phone: Blood hemoglobin measurement (mass/volume)on 04-13-2022 Hemoglobin (Bld) [Mass/Vol] 11.6 g/dL 12.0-15.0 [facility] Work Phone: Blood platelet mean volumeon 04-13-2022 Platelet mean volume (Bld) [Entitic vol] 9.6 fL 6.2-12.0 [facility] Work Phone: Determination of erythrocyte mean corpuscular volume (MCV)on 04-13-2022 MCV (RBC) [Entitic vol] 93.2 fL 81-[address] [facility] Work Phone: Hematocrit Auto (Bld) [Volum e fraction]on 04-13-2022 Hematocrit (Bld) [Volume fraction] 35.8 % 37-47 [facility] Work Phone: Laboratory - Chemistry and C hemistry - challengeon 04-13-2022 CO2 [Moles/Vol] 28.0 mmol/L 21.0-32.0 [facility] Work Phone: Urea nitrogen/Creatinine [Mass ratio] 13.2 mg/mg - [facility] Work Phone: Laboratory - Hematology and Cell countson 04-13-2022 Erythrocyte distribution width (RBC) [Entitic vol] 47.1 fL 35.1-43.9 [facility] Work Phone: Erythrocyte distribution width (RBC) [Ratio] 13.9 % 11.6-14.6 [facility] Work Phone: MCH (RBC) [Entitic mass] 30.2 pg 27.0-32.0 [facility] Work Phone: MCHC Auto (RBC) [Mass/Vol]on 04-13-2022 MCHC (RBC) [Mass/Vol] 32.4 g/dL 32-36 [facility] Work Phone: No Panel Informationon 04-13 Estimated GFR (MDRD) Amer 51 mL/min >60 [facility] Work Phone: Comment on above: GFR Calc Estimated GFR (MDRD) Non-Af Amer 42 mL/min >60 [facility] Work Phone: Comment on above: Non- GFR Calc Platelets bldon 04-13-2022 Platelets (Bld) [#/Vol] 284 10*3/uL 150-450 [facility] Work Phone: Serum or plasma calcium tai urement (mass/volume)on 04-13-2022 Calcium [Mass/Vol] 9.3 mg/dL 8.5-10.1 [facility] Work Phone: Serum or plasma creatinine m easurement (mass/volume)on 04-13-2022 Creatinine [Mass/Vol] 1.36 mg/dL 0.55-1.02 [facility] Work Phone: Comment on above: The validity of the calculated GFR & GFRAA in patients over 70 years has not been determined. Clinical correlation is essential. Serum or plasma urea nitroge n measurement (mass/volume)on 04-13-2022 Urea nitrogen [Mass/Vol] 18 mg/dL 7-18 [facility] Work Phone: Thin prep Papanicolaou smear with manual screeningon 04-13-2022 Thin prep Papanicolaou smear with manual screening 8 5-15 [facility] Work Phone: Basophil percentageon 2021 Chloride [Moles/Vol] 100 mmol/L 98-107 [facility] Work Phone: Glucose [Mass/Vol] 74 mg/dL 74-106 [facility] Work Phone: Potassium [Moles/Vol] 3.8 mmol/L 3.5-5.1 [facility]: Sodium [Moles/Vol] 134 mmol/L 136-145 [facility] Work Phone: WBC (Bld) [#/Vol] 6.9 10*3/uL 4.4-11.0 [facility] Work Phone: Blood erythrocytes count (nu mber/volume)on 04-06-2022 RBC (Bld) [#/Vol] 3.80 10*6/uL 4.2-5.4 [facility] Work Phone: Blood hemoglobin measurement (mass/volume)on 04-06-2022 Hemoglobin (Bld) [Mass/Vol] 11.6 g/dL 12.0-15.0 [facility] Work Phone: Blood platelet mean volumeon 04-06-2022 Platelet mean volume (Bld) [Entitic vol] 9.2 fL 6.2-12.0 [facility] Work Phone: Determination of erythrocyte mean corpuscular volume (MCV)on 04-06-2022 MCV (RBC) [Entitic vol] 90.8 fL 81-[address] [facility] Work Phone: Hematocrit Auto (Bld) [Volum e fraction]on 04-06-2022 Hematocrit (Bld) [Volume fraction] 34.5 % 37-47 [facility] Work Phone: Laboratory - Chemistry and C hemistry - challengeon 04-06-2022 CO2 [Moles/Vol] 27.0 mmol/L 21.0-32.0 [facility] Work Phone: Urea nitrogen/Creatinine [Mass ratio] 14.3 mg/mg 10-20 [facility] Work Phone: Laboratory - Hematology and Cell countson 04-06-2022 Erythrocyte distribution width (RBC) [Entitic vol] 46.6 fL 35.1-43.9 [facility] Work Phone: Erythrocyte distribution width (RBC) [Ratio] 13.9 % 11.6-14.6 [facility] Work Phone: MCH (RBC) [Entitic mass] 30.5 pg 27.0-32.0 [facility] Work Phone: MCHC Auto (RBC) [Mass/Vol]on 04-06-2022 MCHC (RBC) [Mass/Vol] 33.6 g/dL 32-36 [facility] Work Phone: No Panel Informationon 04-06 Estimated GFR (MDRD) Amer 64 mL/min >60 [facility] Work Phone: Comment on above: GFR Calc Estimated GFR (MDRD) Non-Af Amer 53 mL/min >60 [facility] Work Phone: Comment on above: Non- GFR Calc Platelets bldon 04-06-2022 Platelets (Bld) [#/Vol] 309 10*3/uL 150-450 [facility] Work Phone: Serum or plasma calcium tai urement (mass/volume)on 04-06-2022 Calcium [Mass/Vol] 9.3 mg/dL 8.5-10.1 [facility] Work Phone: Serum or plasma creatinine m easurement (mass/volume)on 04-06-2022 Creatinine [Mass/Vol] 1.12 mg/dL 0.55-1.02 [facility] Work Phone: Comment on above: The validity of the calculated GFR & GFRAA in patients over 70 years has not been determined. Clinical correlation is essential. Serum or plasma urea nitroge n measurement (mass/volume)on 04-06-2022 Urea nitrogen [Mass/Vol] 16 mg/dL 7-18 [facility] Work Phone: Thin prep Papanicolaou smear with manual screeningon 04-06-2022 Thin prep Papanicolaou smear with manual screening 7 5-15 [facility] Work Phone: Glucose Glucometer (BldC) [M ass/Vol]on 03-30-2022 Glucose [Mass/Vol] 140 mg/dL 74-106 [facility] Work Phone: Comment on above: MANAGEMENT OF PATIEN T CARE PER NURSING PROTOCOL Basophil percentageon 2021 Chloride [Moles/Vol] 97 mmol/L 98-107 [facility] Work Phone: Glucose [Mass/Vol] 78 mg/dL 74-106 [facility] Work Phone: Potassium [Moles/Vol] 3.5 mmol/L 3.5-5.1 [facility] Work Phone: Sodium [Moles/Vol] 136 mmol/L 136-145 [facility] Work Phone: Laboratory - Chemistry and C hemistry - challengeon 03-29-2022 CO2 [Moles/Vol] 30.0 mmol/L 21.0-32.0 [facility] Work Phone: Urea nitrogen/Creatinine [Mass ratio] 16.3 mg/mg 10-20 [facility] Work Phone: No Panel Informationon 03-29 Estimated Creatinine Clearance Calc 42.35 ml/min [facility] Work Phone: Estimated GFR (MDRD) Amer 70 mL/min >60 [facility] Work Phone: Comment on above: GFR Calc Estimated GFR (MDRD) Non-Af Amer 58 mL/min >60 [facility] Work Phone: Comment on above: Non- GFR Calc Serum or plasma calcium tai urement (mass/volume)on 03-29-2022 Calcium [Mass/Vol] 9.5 mg/dL 8.5-10.1 [facility] Work Phone: Serum or plasma creatinine m easurement (mass/volume)on 03-29-2022 Creatinine [Mass/Vol] 1.04 mg/dL 0.55-1.02 [facility] Work Phone: Comment on above: The validity of the calculated GFR & GFRAA in patients over 70 years has not been determined. Clinical correlation is essential. Serum or plasma urea nitroge n measurement (mass/volume)on 03-29-2022 Urea nitrogen [Mass/Vol] 17 mg/dL 7-18 [facility] Work Phone: Thin prep Papanicolaou smear with manual screeningon 03-29-2022 Thin prep Papanicolaou smear with manual screening 9 5-15 [facility] Work Phone: [phone] Absolute lymphocyte counton 03-26-2022 Lymphocytes Auto (Unsp spec) [#/Vol] 2.14 10*3/uL 0.83-4.51 [facility] Work Phone: Basophil percentageon 2021 Basophils/100 WBC (Bld) 0.6 % 0-[address] [facility] Work Phone: Eosinophils/100 WBC (Bld) 1.4 % 0-5 [facility] Work Phone: Neutrophils (Bld) [#/Vol] 4.2 10*3/uL 2.0-7.7 [facility] Work Phone: [phone] Neutrophils/100 WBC (Bld) 60.0 % 47-70 [facility] Work Phone: WBC (Bld) [#/Vol] 7.0 10*3/uL 4.4-11.0 [facility] Work Phone: Blood erythrocytes count (nu mber/volume)on 03-26-2022 RBC (Bld) [#/Vol] 3.48 10*6/uL 4.2-5.4 [facility] Work Phone: Blood hemoglobin measurement (mass/volume)on 03-26-2022 Hemoglobin (Bld) [Mass/Vol] 10.6 g/dL 12.0-15.0 [facility] Work Phone: Blood lymphocytes/100 leukoc yteson 03-26-2022 Lymphocytes/100 WBC (Bld) 30.7 % 19-41 [facility] Work Phone: Blood monocytes/100 leukocyt eson 03-26-2022 Monocytes/100 WBC (Bld) 6.3 % 0-[address] [facility] Work Phone: Blood platelet mean volumeon 03-26-2022 Platelet mean volume (Bld) [Entitic vol] 10.3 fL 6.2-12.0 [facility] Work Phone: Determination of erythrocyte mean corpuscular volume (MCV)on 03-26-2022 MCV (RBC) [Entitic vol] 92.8 fL 81-[address] [facility] Work Phone: Hematocrit Auto (Bld) [Volum e fraction]on 03-26-2022 Hematocrit (Bld) [Volume fraction] 32.3 % 37-47 [facility] Work Phone: Laboratory - Hematology and Cell countson 03-26-2022 Erythrocyte distribution width (RBC) [Entitic vol] 45.7 fL 35.1-43.9 [facility] Work Phone: Erythrocyte distribution width (RBC) [Ratio] 13.5 % 11.6-14.6 [facility] Work Phone: Immature granulocytes/100 WBC (Bld) 1.000 % 0.0-0.9 [facility] Work Phone: Comment on above: IG% - Immature Granu locytes (promyelocytes, myelocytes and metamyelocytes) > 1% indicates that a LEFT SHIFT is Present. MCH (RBC) [Entitic mass] 30.5 pg 27.0-32.0 [facility] Work Phone: Nucleated RBC/100 WBC (Bld) [Ratio] 0 % 0-5 [facility] Work Phone: MCHC Auto (RBC) [Mass/Vol]on 03-26-2022 MCHC (RBC) [Mass/Vol] 32.8 g/dL 32-36 [facility] Work Phone: Platelets bldon 03-26-2022 Platelets (Bld) [#/Vol] 249 10*3/uL 150-450 [facility] Work Phone: Basophil percentageon 2021 Bilirubin [Mass/Vol] 0.40 mg/dL 0.20-1.00 [facility] Work Phone: [phone] Comment on above: For patients on eltr ombopag therapy, use of Dimension [place] TBIL is not recommended. Protein [Mass/Vol] 6.6 g/dL 6.4-8.2 [facility] Work Phone: Laboratory - Chemistry and C hemistry - challengeon 03-24-2022 ALP [Catalytic activity/Vol] 72 U/L 45-117 [facility] Work Phone: ALT [Catalytic activity/Vol] 56 U/L 13-56 [facility] Work Phone: Globulin (S) [Mass/Vol] 3.7 g/dL 2.2-4.[address] [facility] Work Phone: Serum or plasma albumin tai urement (mass/volume)on 03-24-2022 Albumin [Mass/Vol] 2.9 g/dL 3.2-5.0 [facility] Work Phone: Serum or plasma albumin/glob ulin mass ratioon 03-24-2022 Albumin/Globulin [Mass ratio] 0.8 {ratio} 0.9-2.4 [facility] Work Phone: Thin prep Papanicolaou smear with manual screeningon 03-24-2022 Thin prep Papanicolaou smear with manual screening 62 U/L 15-37 [facility] Work Phone: [phone] Laboratory - Chemistry and C hemistry - challengeon 03-21-2022 Magnesium [Mass/Vol] 2.0 mg/dL 1.6-2.6 [facility] Work Phone: Absolute lymphocyte counton 03-20-2022 Lymphocytes Auto (Unsp spec) [#/Vol] 2.56 10*3/uL 0.83-4.51 [facility] Work Phone: Basophil percentageon 2021 Basophil percentage 25-50 SEEN /hpf 0-5 [facility] Work Phone: Basophils/100 WBC (Bld) 0.6 % 0-[address] [facility] Work Phone: Chloride [Moles/Vol] 91 mmol/L 98-107 [facility] Work Phone: Eosinophils/100 WBC (Bld) 0.4 % 0-5 [facility] Work Phone: Glucose [Mass/Vol] 489 mg/dL 74-106 [facility] Work Phone: Comment on above: Glucose result great er than or equal to 200 mg/dLsuggests DIABETES MELLITUS per A.D.A. criteria. Neutrophils (Bld) [#/Vol] 3.8 10*3/uL 2.0-7.7 [facility] Work Phone: Neutrophils/100 WBC (Bld) 56.5 % 47-70 [facility] Work Phone: Potassium [Moles/Vol] 3.6 mmol/L 3.5-5.1 [facility] Work Phone: Sodium [Moles/Vol] 128 mmol/L 136-145 [facility] Work Phone: WBC (Bld) [#/Vol] 6.8 10*3/uL 4.4-11.0 [facility] Work Phone: Bilirubin Test strip Ql (U)o n 03-20-2022 Bilirubin Ql (U) Negative Negative [facility] Work Phone: Blood erythrocytes count (nu mber/volume)on 03-20-2022 RBC (Bld) [#/Vol] 4.08 10*6/uL 4.2-5.4 [facility] Work Phone: Blood hemoglobin measurement (mass/volume)on 03-20-2022 Hemoglobin (Bld) [Mass/Vol] 12.9 g/dL 12.0-15.0 [facility] Work Phone: Blood lymphocytes/100 leukoc yteson 03-20-2022 Lymphocytes/100 WBC (Bld) 37.6 % 19-41 [facility] Work Phone: Blood monocytes/100 leukocyt eson 03-20-2022 Monocytes/100 WBC (Bld) 4.3 % 0-[address] [facility] Work Phone: Blood platelet mean volumeon 03-20-2022 Platelet mean volume (Bld) [Entitic vol] 9.7 fL 6.2-12.0 [facility] Work Phone: Determination of erythrocyte mean corpuscular volume (MCV)on 03-20-2022 MCV (RBC) [Entitic vol] 87.0 fL 81-[address] [facility] Work Phone: Glucose Glucometer (BldC) [M ass/Vol]on 03-20-2022 Glucose [Mass/Vol] 420 mg/dL 74-106 [facility] Work Phone: Comment on above: MANAGEMENT OF PATIEN T CARE PER NURSING PROTOCOL Hematocrit Auto (Bld) [Volum e fraction]on 03-20-2022 Hematocrit (Bld) [Volume fraction] 35.5 % 37-47 [facility] Work Phone: Ketones Test strip Ql (U)on 03-20-2022 Ketones Ql (U) Negative Negative [facility] Work Phone: Laboratory - Chemistry and C hemistry - challengeon 03-20-2022 CO2 [Moles/Vol] 27.0 mmol/L 21.0-32.0 [facility] Work Phone: Urea nitrogen/Creatinine [Mass ratio] 11.0 mg/mg 10-20 [facility] Work Phone: Laboratory - Hematology and Cell countson 03-20-2022 Erythrocyte distribution width (RBC) [Entitic vol] 41.2 fL 35.1-43.9 [facility] Work Phone: Erythrocyte distribution width (RBC) [Ratio] 13.0 % 11.6-14.6 [facility] Work Phone: Immature granulocytes/100 WBC (Bld) 0.600 % 0.0-0.9 [facility] Work Phone: Comment on above: IG% - Immature Granu locytes (promyelocytes, myelocytes and metamyelocytes) > 1% indicates that a LEFT SHIFT is Present. MCH (RBC) [Entitic mass] 31.6 pg 27.0-32.0 [facility] Work Phone: Nucleated RBC/100 WBC (Bld) [Ratio] 0 % 0-5 [facility] Work Phone: MCHC Auto (RBC) [Mass/Vol]on 03-20-2022 MCHC (RBC) [Mass/Vol] 36.3 g/dL 32-36 [facility] Work Phone: Mucus LM Ql (Urine sed)on Mucus Ql (Urine sed) 0 SEEN /hpf [facility] Work Phone: Nitrite Test strip Ql (U)on 03-20-2022 Nitrite Ql (U) Negative Negative [facility] Work Phone: No Panel Informationon 03-20 Estimated Creatinine Clearance Calc 34.68 ml/min [facility] Work Phone: Estimated GFR (MDRD) Amer 56 mL/min >60 [facility] Work Phone: Comment on above: GFR Calc Estimated GFR (MDRD) Non-Af Amer 46 mL/min >60 [facility] Work Phone: Comment on above: Non- GFR Calc Platelets bldon 03-20-2022 Platelets (Bld) [#/Vol] 263 10*3/uL 150-450 [facility] Work Phone: Protein Test strip Ql (U)on 03-20-2022 Protein Ql (U) 30 mg/dl Negative [facility] Work Phone: Serum or plasma calcium tai urement (mass/volume)on 03-20-2022 Calcium [Mass/Vol] 9.1 mg/dL 8.5-10.1 [facility] Work Phone: Serum or plasma creatinine m easurement (mass/volume)on 03-20-2022 Creatinine [Mass/Vol] 1.27 mg/dL 0.55-1.02 [facility] Work Phone: Comment on above: The validity of the calculated GFR & GFRAA in patients over 70 years has not been determined. Clinical correlation is essential. Serum or plasma urea nitroge n measurement (mass/volume)on 03-20-2022 Urea nitrogen [Mass/Vol] 14 mg/dL 7-18 [facility] Work Phone: Squamous epithelial cells de tection in urine sediment by light microscopyon 03-20-2022 Epithelial cells.squamous LM Ql (Urine sed) 5-10 SEEN /hpf 5-10 [facility] Work Phone: Thin prep Papanicolaou smear with manual screeningon 03-20-2022 Thin prep Papanicolaou smear with manual screening 10 5-15 [facility] Work Phone: Urine blood detectionon 02-23 RBC Ql (U) 10 /ul Negative [facility] Work Phone: RBC Ql (U) 0 SEEN /hpf 0-5 [facility] Work Phone: Urine clarityon 03-20-2022 Clarity (U) Clear Clear [facility] Work Phone: Urine color determinationon 03-20-2022 Color (U) Yellow Yellow [facility] Work Phone: Urine glucose detectionon Glucose Ql (U) 1000 mg/dl Normal [facility] Work Phone: Urine leukocyte esterase det ection by dipstickon 03-20-2022 Leukocyte esterase Test strip Ql (U) 100 /ul Negative [facility] Work Phone: Urine pHon 03-20-2022 pH (U) 6.0 [pH] 5.0 - 8.0 [facility] Work Phone: Urine sediment bacteria coun t by microscopy (number/high power field)on 03-20-2022 Bacteria LM.HPF (Urine sed) [#/Area] 2 /[HPF] None Seen [facility] Work Phone: Urine specific gravity measu rementon 03-20-2022 Specific gravity (U) [Rel density] 1.015 1.002-1.03 0 [facility] Work Phone: Urobilinogen Auto test strip Ql (U)on 03-20-2022 Urobilinogen Ql (U) Normal mg/dl Normal [facility] Work Phone: Whole blood hemoglobin A1c/t otal hemoglobin ratio (mass fraction)on 03-20-2022 HbA1c (Bld) [Mass fraction] 13.1 % 3.8-5.6 [facility] Work Phone: Comment on above: Normal < 5.7 % Predi abetic 5.7 - 6.4 % Diabetic >or= 6.5 % Please note range changes. Absolute lymphocyte counton 02-24-2022 Lymphocytes Auto (Unsp spec) [#/Vol] 1.98 10*3/uL 0.83-4.51 [facility] Work Phone: Basophil percentageon 2021 Basophils/100 WBC (Bld) 0.8 % 0-[address] [facility] Work Phone: Bilirubin [Mass/Vol] 0.50 mg/dL 0.20-1.00 [facility] Work Phone: Comment on above: For patients on eltr ombopag therapy, use of Dimension [place] TBIL is not recommended. Chloride [Moles/Vol] 87 mmol/L 98-107 [facility] Work Phone: Eosinophils/100 WBC (Bld) 0.2 % 0-5 [facility] Work Phone: Glucose [Mass/Vol] 569 mg/dL 74-106 [facility] Work Phone: Comment on above: Critical Result(s) C alled at: 14:47:48 02/24/2022 by: Juana Delacruz. Results read back by same.Glucose result greater than or equal to 200 mg/dLsuggests DIABETES MELLITUS per A.D.A. criteria. Neutrophils (Bld) [#/Vol] 3.9 10*3/uL 2.0-7.7 [facility] Work Phone: Neutrophils/100 WBC (Bld) 62.4 % 47-70 [facility] Work Phone: Potassium [Moles/Vol] 3.8 mmol/L 3.5-5.1 [facility] Work Phone: [phone] Protein [Mass/Vol] 7.6 g/dL 6.4-8.2 [facility] Work Phone: Sodium [Moles/Vol] 127 mmol/L 136-145 [facility] Work Phone: WBC (Bld) [#/Vol] 6.3 10*3/uL 4.4-11.0 [facility] Work Phone: [phone] Blood erythrocytes count (nu mber/volume)on 02-24-2022 RBC (Bld) [#/Vol] 4.08 10*6/uL 4.2-5.4 [facility] Work Phone: Blood hemoglobin measurement (mass/volume)on 02-24-2022 Hemoglobin (Bld) [Mass/Vol] 12.7 g/dL 12.0-15.0 [facility] Work Phone: Blood lymphocytes/100 leukoc yteson 02-24-2022 Lymphocytes/100 WBC (Bld) 31.4 % 19-41 [facility] Work Phone: [phone] Blood monocytes/100 leukocyt eson 02-24-2022 Monocytes/100 WBC (Bld) 4.4 % 0-[address] [facility] Work Phone: Blood platelet mean volumeon 02-24-2022 Platelet mean volume (Bld) [Entitic vol] 9.7 fL 6.2-12.0 [facility] Work Phone: Determination of erythrocyte mean corpuscular volume (MCV)on 02-24-2022 MCV (RBC) [Entitic vol] 88.0 fL 81-[address] [facility] Work Phone: Glucose Glucometer (BldC) [M ass/Vol]on 02-24-2022 Glucose [Mass/Vol] 407 mg/dL 74-106 [facility] Work Phone: Comment on above: MANAGEMENT OF PATIEN T CARE PER NURSING PROTOCOL Hematocrit Auto (Bld) [Volum e fraction]on 02-24-2022 Hematocrit (Bld) [Volume fraction] 35.9 % 37-47 [facility] Work Phone: Laboratory - Chemistry and C hemistry - challengeon 02-24-2022 ALP [Catalytic activity/Vol] 93 U/L 45-117 [facility] Work Phone: ALT [Catalytic activity/Vol] 56 U/L 13-56 [facility] Work Phone: CO2 [Moles/Vol] 27.0 mmol/L 21.0-32.0 [facility] Work Phone: Globulin (S) [Mass/Vol] 4.0 g/dL 2.2-4.[address] [facility] Work Phone: Urea nitrogen/Creatinine [Mass ratio] 8.1 mg/mg 10-20 [facility] Work Phone: Laboratory - Hematology and Cell countson 02-24-2022 Erythrocyte distribution width (RBC) [Entitic vol] 44.8 fL 35.1-43.9 [facility] Work Phone: Erythrocyte distribution width (RBC) [Ratio] 14.0 % 11.6-14.6 [facility] Work Phone: Immature granulocytes/100 WBC (Bld) 0.800 % 0.0-0.9 [facility] Work Phone: Comment on above: IG% - Immature Granu locytes (promyelocytes, myelocytes and metamyelocytes) > 1% indicates that a LEFT SHIFT is Present. MCH (RBC) [Entitic mass] 31.1 pg 27.0-32.0 [facility] Work Phone: Nucleated RBC/100 WBC (Bld) [Ratio] 0 % 0-5 [facility] Work Phone: MCHC Auto (RBC) [Mass/Vol]on 02-24-2022 MCHC (RBC) [Mass/Vol] 35.4 g/dL 32-36 [facility] Work Phone: No Panel Informationon 02-24 Estimated Creatinine Clearance Calc 29.76 ml/min [facility] Work Phone: Estimated GFR (MDRD) Amer 47 mL/min >60 [facility] Work Phone: Comment on above: GFR Calc Estimated GFR (MDRD) Non-Af Amer 38 mL/min >60 [facility] Work Phone: Comment on above: Non- GFR Calc Platelets bldon 02-24-2022 Platelets (Bld) [#/Vol] 231 10*3/uL 150-450 [facility] Work Phone: Serum or plasma albumin tai urement (mass/volume)on 02-24-2022 Albumin [Mass/Vol] 3.6 g/dL 3.2-5.0 [facility] Work Phone: Serum or plasma albumin/glob ulin mass ratioon 02-24-2022 Albumin/Globulin [Mass ratio] 0.9 {ratio} 0.9-2.4 [facility] Work Phone: Serum or plasma calcium tai urement (mass/volume)on 02-24-2022 Calcium [Mass/Vol] 8.3 mg/dL 8.5-10.1 [facility] Work Phone: Serum or plasma creatinine m easurement (mass/volume)on 02-24-2022 Creatinine [Mass/Vol] 1.48 mg/dL 0.55-1.02 [facility] Work Phone: [phone] Comment on above: The validity of the calculated GFR & GFRAA in patients over 70 years has not been determined. Clinical correlation is essential. Serum or plasma urea nitroge n measurement (mass/volume)on 02-24-2022 Urea nitrogen [Mass/Vol] 12 mg/dL 7-18 [facility] Work Phone: Thin prep Papanicolaou smear with manual screeningon 02-24-2022 Thin prep Papanicolaou smear with manual screening 45 U/L 15-37 [facility] Work Phone: Thin prep Papanicolaou smear with manual screening 13 5-15 [facility] Work Phone: Absolute lymphocyte counton 01-13-2022 Lymphocytes Auto (Unsp spec) [#/Vol] 2.40 10*3/uL 0.83-4.51 [facility] Work Phone: Amorphous sediment detection in urine sediment by light microscopyon 01-13-2022 Amorphous sediment LM Ql (Urine sed) 1+ URATE [facility] Work Phone: Basophil percentageon 2021 Basophil percentage 25-50 SEEN /hpf 0-5 [facility] Work Phone: [phone] Basophils/100 WBC (Bld) 0.4 % 0-[address] [facility] Work Phone: Chloride [Moles/Vol] 89 mmol/L 98-107 [facility] Work Phone: Eosinophils/100 WBC (Bld) 0.3 % 0-5 [facility] Work Phone: Glucose [Mass/Vol] 496 mg/dL 74-106 [facility] Work Phone: Comment on above: Glucose result great er than or equal to 200 mg/dLsuggests DIABETES MELLITUS per A.D.A. criteria. Neutrophils (Bld) [#/Vol] 4.8 10*3/uL 2.0-7.7 [facility] Work Phone: Neutrophils/100 WBC (Bld) 63.1 % 47-70 [facility] Work Phone: Potassium [Moles/Vol] 4.2 mmol/L 3.5-5.1 [facility] Work Phone: Sodium [Moles/Vol] 126 [...] n 01-13-2022 Bilirubin Ql (U) Negative Negative [facility] Work Phone: Blood erythrocytes count (nu mber/volume)on 01-13-2022 RBC (Bld) [#/Vol] 4.55 10*6/uL 4.2-5.4 [facility] Work Phone: Blood hemoglobin measurement (mass/volume)on 01-13-2022 Hemoglobin (Bld) [Mass/Vol] 14.0 g/dL 12.0-15.0 [facility] Work Phone: Blood lymphocytes/100 leukoc yteson 01-13-2022 Lymphocytes/100 WBC (Bld) 31.7 % 19-41 [facility] Work Phone: Blood monocytes/100 leukocyt eson 01-13-2022 Monocytes/100 WBC (Bld) 4.0 % 0-[address] [facility] Work Phone: Blood platelet mean volumeon 01-13-2022 Platelet mean volume (Bld) [Entitic vol] 9.8 fL 6.2-12.0 [facility] Work Phone: Culture, urineon 01-13-2022 Bacteria identified Cx Nom (U) Negative [facility] Work Phone: Bacteria identified Cx Nom (U) Mixed Gram Pos & Gram Neg Org [facility] Work Phone: Determination of erythrocyte mean corpuscular volume (MCV)on 01-13-2022 MCV (RBC) [Entitic vol] 82.6 fL 81-[address] [facility] Work Phone: Glucose Glucometer (BldC) [M ass/Vol]on 01-13-2022 Glucose [Mass/Vol] 361 mg/dL 74-106 [facility] Work Phone: Comment on above: MANAGEMENT OF PATIEN T CARE PER NURSING PROTOCOL Hematocrit Auto (Bld) [Volum e fraction]on 01-13-2022 Hematocrit (Bld) [Volume fraction] 37.6 % 37-47 [facility] Work Phone: Ketones Test strip Ql (U)on 01-13-2022 Ketones Ql (U) Negative Negative [facility] Work Phone: Laboratory - Chemistry and C hemistry - challengeon 01-13-2022 CO2 [Moles/Vol] 28.0 mmol/L 21.0-32.0 [facility] Work Phone: Urea nitrogen/Creatinine [Mass ratio] 11.5 mg/mg 10-20 [facility] Work Phone: Laboratory - Hematology and Cell countson 01-13-2022 Erythrocyte distribution width (RBC) [Entitic vol] 42.2 fL 35.1-43.9 [facility] Work Phone: Erythrocyte distribution width (RBC) [Ratio] 14.0 % 11.6-14.6 [facility] Work Phone: Immature granulocytes/100 WBC (Bld) 0.500 % 0.0-0.9 [facility] Work Phone: Comment on above: IG% - Immature Granu locytes (promyelocytes, myelocytes and metamyelocytes) > 1% indicates that a LEFT SHIFT is Present. MCH (RBC) [Entitic mass] 30.8 pg 27.0-32.0 [facility] Work Phone: Nucleated RBC/100 WBC (Bld) [Ratio] 0 % 0-5 [facility] Work Phone: MCHC Auto (RBC) [Mass/Vol]on 01-13-2022 MCHC (RBC) [Mass/Vol] 37.2 g/dL 32-36 [facility] Work Phone: Mucus LM Ql (Urine sed)on Mucus Ql (Urine sed) 0 SEEN /hpf [facility] Work Phone: Nitrite Test strip Ql (U)on 01-13-2022 Nitrite Ql (U) Negative Negative [facility] Work Phone: No Panel Informationon 01-13 Estimated Creatinine Clearance Calc 28.06 ml/min [facility] Work Phone: Estimated GFR (MDRD) Amer 43 mL/min >60 [facility] Work Phone: Comment on above: GFR Calc Estimated GFR (MDRD) Non-Af Amer 36 mL/min >60 [facility] Work Phone: Comment on above: Non- GFR Calc Insulin Level 32.1 mU/L 2.6-37.6 [facility] Work Phone: Comment on above: Please Note: INSULIN METHOD & REFERENCE RANGE CHANGEEffective 11/04/2017. Platelets bldon 01-13-2022 Platelets (Bld) [#/Vol] 267 10*3/uL 150-450 [facility] Work Phone: Protein Test strip Ql (U)on 01-13-2022 Protein Ql (U) 30 mg/dl Negative [facility] Work Phone: Serum or plasma acetone tai urement (mass/volume)on 01-13-2022 Acetone [Mass/Vol] Negative NEG [facility] Work Phone: Serum or plasma calcium tai urement (mass/volume)on 01-13-2022 Calcium [Mass/Vol] 9.8 mg/dL 8.5-10.1 [facility] Work Phone: Serum or plasma creatinine m easurement (mass/volume)on 01-13-2022 Creatinine [Mass/Vol] 1.57 mg/dL 0.55-1.02 [facility] Work Phone: Comment on above: The validity of the calculated GFR & GFRAA in patients over 70 years has not been determined. Clinical correlation is essential. Serum or plasma urea nitroge n measurement (mass/volume)on 01-13-2022 Urea nitrogen [Mass/Vol] 18 mg/dL 7-18 [facility] Work Phone: Squamous epithelial cells de tection in urine sediment by light microscopyon 01-13-2022 Epithelial cells.squamous LM Ql (Urine sed) 0-5 SEEN /hpf 5-10 [facility] Work Phone: Thin prep Papanicolaou smear with manual screeningon 01-13-2022 Thin prep Papanicolaou smear with manual screening 9 5-15 [facility] Work Phone: Urine blood detectionon 12-24 RBC Ql (U) 10 /ul Negative [facility] Work Phone: RBC Ql (U) 0-5 SEEN /hpf 0-5 [facility] Work Phone: Urine clarityon 01-13-2022 Clarity (U) Sl. Cloudy Clear [facility] Work Phone: Urine color determinationon 01-13-2022 Color (U) Yellow Yellow [facility] Work Phone: Urine glucose detectionon Glucose Ql (U) 1000 mg/dl Normal [facility] Work Phone: Urine leukocyte esterase det ection by dipstickon 01-13-2022 Leukocyte esterase Test strip Ql (U) 500 /ul Negative [facility] Work Phone: Urine pHon 01-13-2022 pH (U) 5.0 [pH] 5.0 - 8.0 [facility] Work Phone: Urine sediment bacteria coun t by microscopy (number/high power field)on 01-13-2022 Bacteria LM.HPF (Urine sed) [#/Area] 0 /[HPF] None Seen [facility] Work Phone: Urine specific gravity measu rementon 01-13-2022 Specific gravity (U) [Rel density] 1.015 1.002-1.03 0 [facility] Work Phone: Urobilinogen Auto test strip Ql (U)on 01-13-2022 Urobilinogen Ql (U) Normal mg/dl Normal [facility] Work Phone: Gram stain for investigation of transfusion reactionon 09-27-2021 Microscopic observation Gram stain Nom (Unsp spec) [facility] Work Phone: .Auto Diffon 12-13-2019 Ammonia (P) [Mass/Vol] 0.30 10 3/mcL Normal 0.15-1.00 [facility] ([place]) Comment on above: Performed By: #### Taco PEARCE BMP #### [place] [address] #### CBC, ADIFF, ANEU #### [address] [address] Basophils (Bld) [#/Vol] 0.00 10 3/mcL Normal 0.00-0.19 [facility] ([place] Comment on above: Performed By: #### Taco PEARCE BMP #### [place] [address] #### CBC, ADIFF, ANEU #### [address] [address] Basophils/100 WBC (Bld) 0.5 % Normal 0.0-2.5 [facility] ([place]) Comment on above: Performed By: #### Taco PEARCE BMP #### [place] [address] #### CBC, ADIFF, ANEU #### [address] [address] Eosinophils (Bld) [#/Vol] 0.00 10 3/mcL Normal 0.00-0. 40 [facility] ([place] Comment on above: Performed By: #### G FR, BMP #### [address] [address] #### CBC, ADIFF, ANEU #### [address] [address] Eosinophils/100 WBC (Bld) 0.8 % Normal 0.0-7.0 [facility] ([place] Comment on above: Performed By: #### G FR, BMP #### [place] [address] #### CBC, ADIFF, ANEU #### [address] [address] Lymphocytes (Bld) [#/Vol] 2.00 10 3/mcL Normal 0.77-3. 85 [facility] ([place] Comment on above: Performed By: #### G FR, BMP #### [place] [address] #### CBC, ADIFF, ANEU #### [address] [address] Lymphocytes/100 WBC (Bld) 33.6 % Normal 10.0-50.0 [facility] [place] Comment on above: Performed By: #### G FR, BMP #### [place] [address] #### CBC, ADIFF, ANEU #### [address] [address] Monocytes/100 WBC (Bld) 4.7 % Normal 1.7-13.0 [facility] ([place] Comment on above: Performed By: #### G FR, BMP #### [place] [address] #### CBC, ADIFF, ANEU #### [address] [address] Neutrophils/100 WBC (Bld) 60.4 % Normal 37.0-80.0 [facility] ([place] Comment on above: Performed By: #### G FR, BMP #### [address] [address] #### CBC, ADIFF, ANEU #### [place] [address] [place], [place] [address] .GFRon 12-13-2019 GFR 54 ml/min/1.73sqm Normal [facility] ([place] Comment on above: Result Comment: GFR Population [...] Performed By: #### G FR, BMP #### [address] [address] #### CBC, ADIFF, ANEU #### [place] [address] [place], [place] [address] GFR Non- 45 ml/min/1.73sqm Normal [facility] ([place] Comment on above: Result Comment: GFR Population [...] Performed By: #### G FR, BMP #### [address] [address] #### CBC, ADIFF, ANEU #### [address] [address] .NEUABSon 12-13-2019 Neutrophils (Bld) [#/Vol] 3.50 10 3/mcL Normal 2.85-6. 16 [facility] [place] Comment on above: Performed By: #### Taco PEARCE, BMP #### [place] [address] #### CBC, ADIFF, ANEU #### [place] [id number] .Urinalysis Microscopic (AO) on 12-13-2019 RBC (U) [#/Vol] LOADED Abnormal None Seen [facility] [place] Comment on above: Performed By: #### U AMICASenia, UA #### [place] [address] UA Squam Epithelial 0-5 Abnormal None Seen [facility] ([place] Comment on above: Performed By: #### U AMICAO, UA #### [place] [address] UA WBC 0-5 Abnormal None Seen [facility] [place] Comment on above: Performed By: #### U AMICASenia, UA #### [place] [address] BMPon 12-13-2019 Calcium [Mass/Vol] 9.2 mg/dL Normal 8.4-10.2 [facility] ([place]) Comment on above: Performed By: #### Taco PEARCE, BMP #### [place] [address] #### CBC, ADIFF, ANEU #### [address] [address] Chloride [Moles/Vol] 90 mmol/L Low 98-107 [facility] ([place]) Comment on above: Performed By: #### Taco PEARCE, BMP #### [place] [address] #### CBC, ADIFF, ANEU #### [place] [id number] CO2 [Moles/Vol] 25 mmol/L Normal 22-29 [facility] [place] Comment on above: Performed By: #### G FR, BMP #### [address] [address] #### CBC, ADIFF, ANEU #### [address] [address] Creatinine [Mass/Vol] 1.24 mg/dL High 0.55-1.02 [facility] ([place]) Comment on above: Performed By: #### G FR, BMP #### [place] [address] #### CBC, ADIFF, ANEU #### [address] [address] Electrolyte Balance 11.0 mEq/L Normal [facility] ([place] Comment on above: Performed By: #### Taco FR, BMP #### [place] [address] #### CBC, ADIFF, ANEU #### [address] [address] Glucose [Mass/Vol] 697 mg/dL Critically abnormal 70-105 [facility] [place] Comment on above: Performed By: #### G FR, BMP #### [place] [address] #### CBC, ADIFF, ANEU #### [address] [address] Potassium [Moles/Vol] 4.0 mmol/L Normal 3.5-5.1 [facility] ([place] Comment on above: Performed By: #### G FR, BMP #### [place] [address] #### CBC, ADIFF, ANEU #### [address] [address] Sodium [Moles/Vol] 126 mmol/L Low 136-145 [facility] ([place] Comment on above: Performed By: #### G FR, BMP #### [address] [address] #### CBC, ADIFF, ANEU #### [address] [address] Urea nitrogen [Mass/Vol] 17 mg/dL Normal 7-18 [facility] ([place] Comment on above: Performed By: #### G FR, BMP #### [address] [address] #### CBC, ADIFF, ANEU #### [address] [address] Urea nitrogen/Creatinine [Mass ratio] 14 ratio Normal 7-27 [facility] [place] Comment on above: Performed By: #### G FR, BMP #### [place] [address] #### CBC, ADIFF, ANEU #### [address] [address] CBCon 12-13-2019 Erythrocyte distribution width (RBC) [Ratio] 12.7 % Normal 11.5-14.5 [facility] [place] Comment on above: Performed By: #### G FR, BMP #### [place] [address] #### CBC, ADIFF, ANEU #### [address] [address] Hematocrit (Bld) [Volume fraction] 41.3 % Normal 37.0-47.0 [facility] [place] Comment on above: Performed By: #### G FR, BMP #### [place] [address] #### CBC, ADIFF, ANEU #### [address] [address] Hemoglobin (Bld) [Mass/Vol] 13.9 G/dL Normal 12.0-16.0 [facility] [place] Comment on above: Performed By: #### G FR, BMP #### [place] [address] #### CBC, ADIFF, ANEU #### [address] [address] MCH (RBC) [Entitic mass] 30.5 pg Normal 27.0-31.2 [facility] [place] Comment on above: Performed By: #### Taco FR, BMP #### [address] [address] #### CBC, ADIFF, ANEU #### [address] [address] MCHC (RBC) [Mass/Vol] 33.7 G/dL Normal 33.0-37.0 [facility] ([place]) Comment on above: Performed By: #### Taco FR, BMP #### [place] [address] #### CBC, ADIFF, ANEU #### [address] [address] MCV (RBC) [Entitic vol] 90.5 fL Normal 80.0-94.0 [facility] ([place] Comment on above: Performed By: #### Taco FR, BMP #### [place] [address] #### CBC, ADIFF, ANEU #### [address] [address] Platelet mean volume (Bld) [Entitic vol] 7.9 fL Normal 7.4-10.4 [facility] [place] Comment on above: Performed By: #### Taco FR, BMP #### [place] [address] #### CBC, ADIFF, ANEU #### [address] [address] Platelets (Bld) [#/Vol] 216 10 3/mcL Normal 130-400 [facility] [place] Comment on above: Performed By: #### Taco FR, BMP #### [place] [address] #### CBC, ADIFF, ANEU #### [address] [address] RBC (Bld) [#/Vol] 4.56 10 6/mcL Normal 4.20-5.40 [facility] ([place] Comment on above: Performed By: #### G FR, BMP #### [address] [address] #### CBC, ADIFF, ANEU #### [place] [address] [place], [place] [address] WBC (Bld) [#/Vol] 5.80 10 3/mcL Normal 4.60-10.80 [facility] ([place] Comment on above: Performed By: #### G FR, BMP #### [address] [address] #### CBC, ADIFF, ANEU #### [place] [address] [place], [place] [address] CT ABDOMEN/PELVIS W/O CONTRA STon 12-13-2019 CT [...] Dia [facility] [place] UAon 12-13-2019 Color (U) Light yellow Normal [facility] [place] Comment on above: Performed By: #### U AMICAO, UA #### [place] [address] Glucose (U) [Mass/Vol] 500 mg/dL Abnormal Negative [facility] ([place]) Comment on above: Performed By: #### U AMICAO, UA #### [place] [address] Ketones Ql (U) Negative Normal Negative [facility] [place] Comment on above: Performed By: #### U AMICAO, UA #### [place] [address] UA Appear Slightly Cloudy Abnormal Clear [facility] [place] Comment on above: Performed By: #### U AMICAO, UA #### [place] [address] UA Blood Large Abnormal Negative [facility] [place] Comment on above: Performed By: #### U AMICAO, UA #### [place] [address] UA Leuk Est Negative Normal Negative [facility] [place] Comment on above: Performed By: #### U AMICAO, UA #### [place] [address] UA Nitrite Negative Normal Negative [facility] [place] Comment on above: Performed By: #### U AMICAO, UA #### [place] [address] UA pH 5.0 Normal 5.0 - 8.0 [facility] [place] Comment on above: Performed By: #### U AMICAO, UA #### [place] [id number] UA Protein Negative Normal Negative [facility] [place] Comment on above: Performed By: #### U AMICAO, UA #### [place] [address] UA Spec Grav <=1.005 Abnormal 1.015-1.02 5 [facility] ([place] Comment on above: Performed By: #### U AMICAO, UA #### [facility] [address] [place] [address] UA Specimen Type Clean Catch Normal [facility] [place] Comment on above: Performed By: #### U AMICAO, UA #### [facility] [address] [place] [address] UA Urobilinogen 0.2 E.U./dL Normal 0.2-1.0 [facility] [place] Comment on above: Performed By: #### U AMICAO, UA #### [facility] [address] [place] [address] Urobilinogen Qn (U) Negative Normal Negative [facility] ([place] Comment on above: Performed By: #### U AMICAO, UA #### [facility] [address] [place] [address] [facility] CNPN Telephone (PREANME) TERRANCE BRAR ([id number]) 1965 F Date Time Provider Department 09/05/19 CAITY BURDEN (INSTRUMENT MAN) PREANME During your visit today, we recorded the following information about you: Caity Burden APRN.GLUE REEL OPERATOR 09/05/2019 9:53 AM Signed Notifying surgeon's office and PCP, pt's pre-op A1c 14.4. Pt is a IDDM, last A1c 13.0 07/13/2019. Please advise. She is scheduled for LAPAROSCOPIC INCISIONAL RECURRENT HERNIA REPAIR W/ MESH REDUCIBLE ADULT With Dr. Dee 09/11/2019. Caity Burden APRN.GLUE REEL OPERATOR 09/05/2019 9:59 AM Signed Also noted [...] PA-C 09/06/2019 2:26 PM Signed Anam Flanagan (Cigarette Packer) Bertram; Anitha Domingo LPN; Red Garcia 16 [...] surgery. Controlling her diabetes mellitus will require licensed psychologist manager commitment on her part to keep appointments, [...] the next month. DEZ Woody MD, CMA, [place] 09/11/2019 2:08 PM Signed Detailed message left [...] 4:36 PM Signed Please check with Pam Deelon as to how [facility] Carlee Valencia III MD Allergies As of [...] Date Reviewed: 09/04/2019 Reviewed by: Caity Flanagan (Cigarette Packer) Bertram - Fully Assessed Reason for Visit: [...] 12/07/2008 More... Routine General Medical Examination at [facility]*12/10/2008 06/03/2015 More... Benign neoplasm of colon [...] Status:Closed by [facility] NUR CMA on 09/11/19 [facility] CNCOon 03-11-2018 CNCO Letter Text [facility] [address] [place] [address]Etin: [phone] Htppjik E. Shafer, [facility] Hospitaleloisa 2017[facility] [facility] [id number] Carlos Panchito Maykel,We missed seeing you for your scheduled appointment with Dr. Calixto on03/08/18 at the [facility].Our goal is to offer the best possible care to our patients, so we areconcerned when you are unable to keep a scheduled appointment.Please call us at [phone] so that we can reschedule your appointment fora day and time that will work for you.If you find it difficult to keep your appointment, please notify our officeat least 24 hours in advance so that we may reschedule your appointment.We are glad that you have [facility] for your[facility] needs and hope to continue serving you in the future.Sincerely,Mary Alice Calixto MD(Signed electronically to expedite mailing) [place] [facility] Office Visit: [facility]2017 Fall risk assessment No Invalid Interpretation Code [facility] Work Phone: Protein mass conc yes Invalid Interpretation Code [facility] Work Phone: Protein mass conc Done Invalid Interpretation Code [facility] Work Phone: Tobacco smoking status NHIS Current every day smoker Invalid Interpretation Code [facility] Work Phone: Lab Report: Culture, Urineon 02-22-2015 CUUR . Invalid Interpretation Code [facility] Work Phone: Lab Report: (P) Urinalysis, Completeon 02-20-2015 Specific gravity Refractometry Relative Density (U) 1.015 Invalid Interpretation Code 1.002-1.03 0 [facility] Work Phone: Lab Report: BNP,B-Type NATRI URETIC PEPTIDEon 02-20-2015 Natriuretic peptide B mass conc (Bld) 8.6 pg/mL Invalid Interpretation Code 0-100 [facility] Work Phone: Lab Report: Basic Metabolic Profile (BMP)on 02-20-2015 Anion gap 4 molar conc 9 Invalid Interpretation Code 5-15 [facility] Work Phone: Calcium mass conc 8.3 mg/dL Low 8.5-10.1 [facility] Work Phone: [phone] Chloride molar conc 100 mmol/L Invalid Interpretation Code 98-107 [facility] Work Phone: [phone] CO2 ppres (BldV) 27.0 mmol/L Invalid Interpretation Code 21.0-32.0 [facility] Work Phone: [phone] Creatinine mass conc 1.2 mg/dL High 0.6-1.0 [facility] Work Phone: [phone] EST GFR - AA 61 mL/min Invalid Interpretation Code >60 [facility] Work Phone: [phone] GFR/1.73 sq M predicted among non-blacks MDRD vol rate/area (S/P/Bld) 50 mL/min/{1.73_m2} Low >60 [facility] Work Phone: [phone] Glucose mass conc 170 mg/dL High 70-110 [facility] Work Phone: [phone] Potassium molar conc 3.3 mmol/L Low 3.5-5.1 [facility] Work Phone: [phone] Sodium molar conc 136 mmol/L Invalid Interpretation Code 136-145 [facility] Work Phone: [phone] Urea nitrogen mass conc 10 mg/dL Invalid Interpretation Code 7-18 [facility] Work Phone: [phone] Urea nitrogen/Creatinine mass ratio 8.3 RATIO Low 10-20 [facility] Work Phone: [phone] Lab Report: CBC W/Diff, Auto matedon 02-20-2015 Absolute Neut 5.3 X10 3/UL Invalid Interpretation Code 2.0-7.7 [facility] Work Phone: [phone] Basophils/100 WBC Auto (Bld) 0.5 % Invalid Interpretation Code 0-1 [facility] Work Phone: [phone] Eosinophils/100 WBC Auto (Bld) 1.5 % Invalid Interpretation Code 0-5 [facility] Work Phone: [phone] Erythrocyte distribution width Auto Ratio (RBC) 47.5 fL High 35.1-43.9 [facility] Work Phone: [phone] Hematocrit Auto Volume Fraction (Bld) 36.1 % Low 37-47 [facility] Work Phone: Hemoglobin mass conc (Bld) 11.5 g/dL Low 12.0-15.0 [facility] Work Phone: [phone] Lymphocytes Auto #/vol (Bld) 1.54 X10 3/UL Invalid Interpretation Code 0.83-4.51 [facility] Work Phone: [phone] Lymphocytes/100 WBC Auto (Bld) 20.7 % Invalid Interpretation Code 19-41 [facility] Work Phone: MCH Auto Entitic mass (RBC) 29.9 pg Invalid Interpretation Code 27.0-32.0 [facility] Work Phone: MCHC Auto mass conc (RBC) 31.9 G/GL Low 32-36 [facility] Work Phone: MCV Auto Entitic volume (RBC) 93.8 fL Invalid Interpretation Code 81-99 [facility] Work Phone: [phone] Monocytes/100 WBC Auto (Bld) 5.5 % Invalid Interpretation Code 0-10 [facility] Work Phone: Neutrophils/100 WBC Auto (Bld) 71.5 % High 47-70 [facility] Work Phone: Platelet mean volume Fercho-Jana Entitic volume (Bld) 9.9 fL Invalid Interpretation Code 6.2-12.0 [facility] Work Phone: Platelets Auto #/vol (Bld) 259 10*3/mm3 Invalid Interpretation Code 150-450 [facility] Work Phone: RBC Auto #/vol (Bld) 3.85 10*6/uL Low 4.2-5.4 [facility] Work Phone: WBC Auto #/vol (Bld) 7.4 10*3/uL Invalid Interpretation Code 4.4-11.0 [facility] Work Phone: Lab Report: Thyroid Stim Hor ivory (TSH)on 02-20-2015 Thyrotropin Qn 79.90 u[iU]/mL High 0.358-3.74 [facility] No [facility] Work Phone: Lab Report: Troponin-Ion Troponin I.cardiac mass conc ng/mL Invalid Interpretation Code <0.06 [facility] Work Phone: Lab Report: A1Con 08-11-2010 Hemoglobin A1c/Hemoglobin.total mass fraction (Bld) 9.6 % High 4.0-6.3 [facility] Work Phone: Lab Report: CMPon 08-11-2010 Albumin mass conc 3.6 g/dL Normal 3.4-5.0 [facility] Work Phone: ALP enzyme act/vol (Bld) 52 U/L Normal 50-136 [facility] Work Phone: ALT enzyme act/vol 31 U/L Normal 12-78 [facility] No [facility] Work Phone: AST enzyme act/vol 14 U/L Low 15-37 [facility] No [facility] Clinic Work Phone: [phone] Bilirubin mass conc 0.60 mg/dL Normal 0.00-1.00 [facility] Work Phone: Lab Report: LIPIDon 08-11-20 10 Cholesterol in HDL mass conc 28 mg/dL Low [facility] Work Phone: Cholesterol in LDL mass conc 106 mg/dL Normal 0-130 [facility] Work Phone: Cholesterol mass conc 189 mg/dL Normal 200 [facility] Work Phone: Lipoprotein.pre-beta mass conc 55 mg/dL High 5-40 [facility] Work Phone: Triglyceride mass conc 275 mg/dL High WC [facility] Work Phone: Culture, urine Bacteria identified Cx Nom (U) Negative [facility] Work Phone: Bacteria identified Cx Nom (U) Mixed Gram Pos & Gram Neg Org [facility] Work Phone: Bacteria identified Cx Nom (U) Culture exhibits no growth. [facility] Work Phone: Vital Signs Date Time Vital Sign Value Performing Clinician Laure graf 08-10-2025 08:33-0400 Body height 152.[address] Lizet Linares MD Work Phone: [facility] 07-17-2025 08:59-0400 Body height 152.[address] Lizet Linares MD Work Phone: [facility] 07-17-2025 08:59-0400 Body mass index (BMI) [Ratio] 40.6 kg/m2 Dr. Lizet Linares MD Work Phone: [facility] 07-17-2025 08:59-0400 Body weight 94.[address] Lizet Linares MD Work Phone: [facility] 07-17-2025 08:59-0400 Diastolic blood pressure 78 mm[Hg] Dr. Lizet Linares MD Work Phone: [facility] 07-17-2025 08:59-0400 Heart rate 67 /min Dr. Lizet Linares MD Work Phone: [facility] 07-17-2025 08:59-0400 Respiratory rate 17 /min Dr. Lizet Linares MD Work Phone: [facility] 07-17-2025 08:59-0400 SaO2% (BldA) [Mass fraction] 98 % Dr. Lizet Linares MD Work Phone: [facility] 07-17-2025 08:59-0400 Systolic blood pressure 155 mm[Hg] Dr. Lizet Linares MD Work Phone: [facility] 06-15-2025 13:43-0400 Body height 152.[address] Lizet Linares MD Work Phone: [facility] 06-15-2025 13:43-0400 Body temperature 97.9 [degF] Dr. Lizet Linares MD Work Phone: [facility] 06-15-2025 13:43-0400 Diastolic blood pressure 70 mm[Hg] Dr. Lizet Linares MD Work Phone: [facility] 06-15-2025 13:43-0400 Heart rate 74 /min Dr. Lizet Linares MD Work Phone: [facility] 06-15-2025 13:43-0400 Respiratory rate 16 /min Dr. Lizet Linares MD Work Phone: [facility] 06-15-2025 13:43-0400 SaO2% (BldA) [Mass fraction] 94 % Dr. Lizet Linares MD Work Phone: [facility] 06-15-2025 13:43-0400 Systolic blood pressure 109 mm[Hg] Dr. Lizet Linares MD Work Phone: [facility] 06-07-2025 09:44-0400 Body height 152.[address] Lizet Linares MD Work Phone: [facility] 06-07-2025 09:44-0400 Body mass index (BMI) [Ratio] 39 kg/m2 Dr. Lizet Linares MD Work Phone: [facility] 06-07-2025 09:44-0400 Body temperature 98.3 [degF] Dr. Lizet Linares MD Work Phone: [facility] 06-07-2025 09:44-0400 Body weight 90.[address] Lizet Linares MD Work Phone: [facility] 06-07-2025 09:44-0400 Diastolic blood pressure 78 mm[Hg] Dr. Lizet Linares MD Work Phone: [facility] 06-07-2025 09:44-0400 Heart rate 73 /min Dr. Lizet Linares MD Work Phone: [facility] 06-07-2025 09:44-0400 Respiratory rate 16 /min Dr. Lizet Linares MD Work Phone: [facility] 06-07-2025 09:44-0400 SaO2% (BldA) [Mass fraction] 98 % Dr. Lizet Linares MD Work Phone: [facility] 06-07-2025 09:44-0400 Systolic blood pressure 118 mm[Hg] Dr. Lizet Linares MD Work Phone: [facility] 06-01-2025 15:01-0400 Body temperature 98.2 [degF] Dr. Lizet Linares MD Work Phone: [facility] 06-01-2025 15:01-0400 Diastolic blood pressure 57 mm[Hg] Dr. Lizet Linares MD Work Phone: [facility] 06-01-2025 15:01-0400 Heart rate 67 /min Dr. Lizet Linares MD Work Phone: [facility] 06-01-2025 15:01-0400 Respiratory rate 18 /min Dr. Lizet Linares MD Work Phone: [facility] 06-01-2025 15:01-0400 SaO2% (BldA) [Mass fraction] 97 % Dr. Lizet Linares MD Work Phone: [facility] 06-01-2025 15:01-0400 Systolic blood pressure 138 mm[Hg] Dr. Lizet Linares MD Work Phone: [facility] 05-29-2025 17:25-0400 Body height 152.[address] Lizet Linares MD Work Phone: [facility] 05-29-2025 17:25-0400 Body weight 91.[address] Lizet Linares MD Work Phone: [facility] 05-28-2025 13:15-0400 Body temperature 98.6 [degF] Dr. Lizet Linares MD Work Phone: [facility] 05-28-2025 13:15-0400 Diastolic blood pressure 62 mm[Hg] Dr. Lizet Linares MD Work Phone: [facility] 05-28-2025 13:15-0400 Heart rate 64 /min Dr. Lizet Linares MD Work Phone: [facility] 05-28-2025 13:15-0400 Respiratory rate 18 /min Dr. Lizet Linares MD Work Phone: [facility] 05-28-2025 13:15-0400 SaO2% (BldA) [Mass fraction] 98 % Dr. Lizet Linares MD Work Phone: [facility] 05-28-2025 13:15-0400 Systolic blood pressure 146 mm[Hg] Dr. Lizet Linares MD Work Phone: [facility] 05-28-2025 12:42-0400 Body height 152.[address] Lizet Linares MD Work Phone: [facility] 05-28-2025 12:42-0400 Body mass index (BMI) [Ratio] 39.2 kg/m2 Dr. Lizet Linares MD Work Phone: [facility] 05-28-2025 12:42-0400 Body weight 91.[address] Lizet Linares MD Work Phone: [facility] 05-26-2025 06:00-0400 Diastolic blood pressure 64 mm[Hg] Dr. Lizet Linares MD Work Phone: [facility] 05-26-2025 06:00-0400 SaO2% (BldA) [Mass fraction] 96 % Dr. Lizet Linares MD Work Phone: [facility] 05-26-2025 06:00-0400 Systolic blood pressure 135 mm[Hg] Dr. Lizet Linares MD Work Phone: [facility] 05-26-2025 04:08-0400 Body temperature 98.8 [degF] Dr. Lizet Linares MD Work Phone: [facility] 05-26-2025 04:08-0400 Heart rate 80 /min Dr. Lizet Linares MD Work Phone: [facility] 05-26-2025 04:08-0400 Respiratory rate 16 /min Dr. Lizet Linares MD Work Phone: [facility] 05-26-2025 00:26-0400 Body height 152.[address] Lizet Linares MD Work Phone: [facility] 05-26-2025 00:26-0400 Body mass index (BMI) [Ratio] 41.6 kg/m2 Dr. Lizet Linares MD Work Phone: [facility] 05-26-2025 00:26-0400 Body weight 96.[address] Lizet Linares MD Work Phone: [facility] 03-16-2025 07:49-0400 Body height 152.[address] Lizet Linares MD Work Phone: [facility] 01-30-2025 13:21-0400 Body mass index (BMI) [Ratio] 39 kg/m2 Dr. Lizet Linares MD Work Phone: [facility] 01-30-2025 13:21-0400 Body weight 90.[address] Lizet Linares MD Work Phone: [facility] 01-30-2025 13:21-0400 Diastolic blood pressure 75 mm[Hg] Dr. Lizet Linares MD Work Phone: [facility] 01-30-2025 13:21-0400 Heart rate 81 /min Dr. Lizet Linares MD Work Phone: [facility] 01-30-2025 13:21-0400 Respiratory rate 14 /min Dr. Lizet Linares MD Work Phone: [facility] 01-30-2025 13:21-0400 SaO2% (BldA) [Mass fraction] 95 % Dr. Lizet Linares MD Work Phone: [facility] 01-30-2025 13:21-0400 Systolic blood pressure 117 mm[Hg] Dr. Lizet Linares MD Work Phone: [facility] 01-22-2025 14:00-0400 Diastolic blood pressure 89 mm[Hg] Dr. Lizet Linares MD Work Phone: [facility] 01-22-2025 14:00-0400 Heart rate 78 /min Dr. Lizet Linares MD Work Phone: [facility] 01-22-2025 14:00-0400 Respiratory rate 18 /min Dr. Lizet Linares MD Work Phone: [facility] 01-22-2025 14:00-0400 SaO2% (BldA) [Mass fraction] 98 % Dr. Lizet Linares MD Work Phone: [facility] 01-22-2025 14:00-0400 Systolic blood pressure 117 mm[Hg] Dr. Lizet Linares MD Work Phone: [facility] 01-22-2025 13:50-0400 Body temperature 98.2 [degF] Dr. Lizet Linares MD Work Phone: [facility] 01-22-2025 10:42-0400 Body height 152.[address] Lizet Linares MD Work Phone: [facility] 01-22-2025 10:42-0400 Body mass index (BMI) [Ratio] 39.3 kg/m2 Dr. Lizet Linares MD Work Phone: [facility] 01-22-2025 10:42-0400 Body weight 91.[address] Lizet Linares MD Work Phone: [facility] 10-24-2024 17:21-0500 Body temperature 97.7 [degF] Dr. Lizet Linares MD Work Phone: [facility] 10-24-2024 17:21-0500 Diastolic blood pressure 63 mm[Hg] Dr. Lizet Linares MD Work Phone: [facility] 10-24-2024 17:21-0500 Heart rate 78 /min Dr. Lizet Linares MD Work Phone: [facility] 10-24-2024 17:21-0500 Respiratory rate 16 /min Dr. Lizet Linares MD Work Phone: [facility] 10-24-2024 17:21-0500 SaO2% (BldA) [Mass fraction] 96 % Dr. Lizet Linares MD Work Phone: [facility] 10-24-2024 17:21-0500 Systolic blood pressure 139 mm[Hg] Dr. Lizet Linares MD Work Phone: [facility] 10-24-2024 11:09-0500 Body mass index (BMI) [Ratio] 39.2 kg/m2 Dr. Lizet Linares MD Work Phone: [facility] 10-24-2024 11:09-0500 Body weight [address] Lizet Linares MD Work Phone: [facility] 01-20-2024 05:27-0400 Body temperature 98.6 [degF] Dr. Jarred Lopez Work Phone: [facility] 01-20-2024 05:27-0400 Diastolic blood pressure 58 mm[Hg] Dr. Jarred Lopez Work Phone: 7(752)390-532402 [place] [address] 01-20-2024 05:27-0400 Heart rate 76 /min Dr. Jarred Lopez Work Phone: 3(927)433-110402 [place] [address] 01-20-2024 05:27-0400 Respiratory rate 13 /min Dr. Jarred Lopez Work Phone: 8(331)443-789302 [place] [address] 01-20-2024 05:27-0400 SaO2% (BldA) [Mass fraction] 94 % Dr. Jarred Lopez Work Phone: 4(563)413-926902 [place] [address] 01-20-2024 05:27-0400 Systolic blood pressure 127 mm[Hg] Dr. Jarred Lopez Work Phone: 7(490)584-180202 [place] [address] 01-20-2024 01:04-0400 Body height 152.[address] Jarred Lopez Work Phone: 9(173)511-935202 [place] [address] 01-20-2024 01:04-0400 Body mass index (BMI) [Ratio] 36.7 kg/m2 Dr. Jarred Lopez Work Phone: 9(484)523-871502 [place] [address] 01-20-2024 01:04-0400 Body weight 85.[address] Jarred Lopez Work Phone: 6(927)728-820802 [place] [address] 01-05-2024 13:45-0400 Body temperature 98.1 [degF] Dr. Jarred Lopez Work Phone: 8(064)213-867502 [place] [address] 01-05-2024 13:45-0400 Diastolic blood pressure 56 mm[Hg] Dr. Jarred Lopez Work Phone: 3(138)362-671402 [place] [address] 01-05-2024 13:45-0400 Heart rate 78 /min Dr. Jarred Lopez Work Phone: 9(279)912-464402 [place] [address] 01-05-2024 13:45-0400 Respiratory rate 18 /min Dr. Jarred Lopez Work Phone: 7(257)367-323502 [place] [address] 01-05-2024 13:45-0400 SaO2% (BldA) [Mass fraction] 96 % Dr. aJrred Lopez Work Phone: 6(116)625-140108 [place] [address] 01-05-2024 13:45-0400 Systolic blood pressure 96 mm[Hg] Dr. Jarred Lopez Work Phone: 6(488)849-981102 [place] [address] 01-04-2024 03:05-0400 Body mass index (BMI) [Ratio] 32.8 kg/m2 Dr. Jarred Lopez Work Phone: 1(601)812-182902 [place] [address] 01-04-2024 03:05-0400 Body weight 76.[address] Jarred Lopez Work Phone: 0(254)594-411502 [place] [address] 01-03-2024 22:31-0400 Inhaled oxygen flow rate 2 L/min Dr. Jarred Lopez Work Phone: 8(479)787-924002 [place] [address] 01-03-2024 12:42-0400 Diastolic blood pressure 64 mm[Hg] Dr. Jarred Lopez Work Phone: 6(004)314-029102 [place] [address] 01-03-2024 12:42-0400 Heart rate 88 /min Dr. Jarred Lopez Work Phone: 3(033)917-035802 [place] [address] 01-03-2024 12:42-0400 Systolic blood pressure 127 mm[Hg] Dr. Jarred Lopez Work Phone: 5(757)788-034302 [place] [address] 01-03-2024 11:52-0400 Body temperature 98 [degF] Dr. Jarred Lopez Work Phone: 5(636)539-084002 [place] [address] 01-03-2024 11:52-0400 Respiratory rate 16 /min Dr. Jarred Lopez Work Phone: 3(705)277-281702 [place] [address] 01-03-2024 11:52-0400 SaO2% (BldA) [Mass fraction] 94 % Dr. Jarred Lopez Work Phone: 5(822)060-361402 [place] [address] 01-03-2024 05:53-0400 Body mass index (BMI) [Ratio] 32.7 kg/m2 Dr. Jarred Lopez Work Phone: [facility] 01-03-2024 05:53-0400 Body weight [address] Jarred Lopez Work Phone: 3(910)512-776908 [place] [address] 01-02-2024 14:55-0400 Body height 152.[address] Jarred Lopez Work Phone: 9(386)009-533702 [place] [address] 01-01-2024 22:20-0500 Body temperature 97.6 [degF] Dr. Jarred Lopez Work Phone: 7(863)613-719402 [place] [address] 01-01-2024 22:20-0500 Diastolic blood pressure 62 mm[Hg] Dr. Jarred Lopez Work Phone: 4(025)280-427102 [place] [address] 01-01-2024 22:20-0500 Heart rate 84 /min Dr. Jarred Lopez Work Phone: 6(543)298-316502 [place] [address] 01-01-2024 22:20-0500 Respiratory rate 13 /min Dr. Jarred Lopez Work Phone: 0(305)971-981702 [place] [address] 01-01-2024 22:20-0500 SaO2% (BldA) [Mass fraction] 99 % Dr. Jarred Lopez Work Phone: 9(843)334-473402 [place] [address] 01-01-2024 22:20-0500 Systolic blood pressure 146 mm[Hg] Dr. Jarred Lopez Work Phone: 5(994)271-441902 [place] [address] 01-01-2024 18:32-0500 Body height 152.[address] Jarred Lopez Work Phone: 9(751)165-541402 [place] [address] 01-01-2024 18:32-0500 Body mass index (BMI) [Ratio] 33.1 kg/m2 Dr. Jarred Lopez Work Phone: 8(940)106-751902 [place] [address] 01-01-2024 18:32-0500 Body weight [address] Jarred Lopez Work Phone: 6(443)580-460008 [place] [address] 11-24-2023 15:05-0500 Body temperature 98.5 [degF] Dr. Jarred Lopez Work Phone: 5(392)809-337008 [place] [address] 11-24-2023 15:05-0500 Diastolic blood pressure 63 mm[Hg] Dr. Jarred Lopez Work Phone: 7(654)294-881102 [place] [address] 11-24-2023 15:05-0500 Heart rate 66 /min Dr. Jarred Lopez Work Phone: 2(578)102-112602 [place] [address] 11-24-2023 15:05-0500 Respiratory rate 16 /min Dr. Jarred Lopez Work Phone: 7(448)957-305302 [place] [address] 11-24-2023 15:05-0500 SaO2% (BldA) [Mass fraction] 96 % Dr. Jarred Lopez Work Phone: 2(276)124-677702 [place] [address] 11-24-2023 15:05-0500 Systolic blood pressure 117 mm[Hg] Dr. Jarred Lopez Work Phone: 1(123)034-303602 [place] [address] 11-24-2023 06:00-0500 Body mass index (BMI) [Ratio] 35.9 kg/m2 Dr. Jarred Lopez Work Phone: 0(625)098-017602 [place] [address] 11-24-2023 06:00-0500 Body weight 83.[address] Jarred Lopez Work Phone: 3(679)091-538102 [place] [address] 11-19-2023 10:27-0500 Body temperature 98.1 [degF] Dr. Jarred Lopez Work Phone: 6(385)671-299802 [place] [address] 11-19-2023 10:27-0500 Diastolic blood pressure 74 mm[Hg] Dr. Jarred Lopez Work Phone: 4(635)602-344002 [place] [address] 11-19-2023 10:27-0500 Heart rate 72 /min Dr. Jarred Lopez Work Phone: 6(732)087-723102 [place] [address] 11-19-2023 10:27-0500 Respiratory rate 15 /min Dr. Jarred Lopez Work Phone: 6(110)300-601402 [place] [address] 11-19-2023 10:27-0500 SaO2% (BldA) [Mass fraction] 99 % Dr. Jarred Lopez Work Phone: [facility] 11-19-2023 10:27-0500 Systolic blood pressure 134 mm[Hg] Dr. Jarred Lopez Work Phone: [facility] 11-19-2023 08:20-0500 Body height 152.[address] Jarred Lopez Work Phone: [facility] 11-19-2023 08:20-0500 Body mass index (BMI) [Ratio] 36.9 kg/m2 Dr. Jarred Lopez Work Phone: [facility] 11-19-2023 08:20-0500 Body weight 85.[address] Jarred Lopez Work Phone: [facility] 06-10-2023 16:53-0400 Respiratory rate 16 /min Dr. Ganesh Garcia Work Phone: 0(294)685-457215 [address] 06-10-2023 14:57-0400 Body height 152.[address] Ganesh Garcia Work Phone: 3(402)566-274991 [place] [address] 06-10-2023 14:57-0400 Body temperature 96.4 [degF] Dr. Ganesh Garcia Work Phone: 1(545)054-811991 [place] [address] 06-10-2023 14:57-0400 Diastolic blood pressure 88 mm[Hg] Dr. Ganesh Garcia Work Phone: 9(130)056-079615 [address] 06-10-2023 14:57-0400 Heart rate 93 /min Dr. Ganesh Garcia Work Phone: 0(491)791-745791 [place] [address] 06-10-2023 14:57-0400 SaO2% (BldA) [Mass fraction] 100 % Dr. Ganesh Garcia Work Phone: 3(845)905-671915 [address] 06-10-2023 14:57-0400 Systolic blood pressure 119 mm[Hg] Dr. Ganesh Garcia Work Phone: 3(120)350-743691 [place] [address] 06-06-2023 20:09-0400 Diastolic blood pressure 97 mm[Hg] Dr. Ganesh Garcia Work Phone: 9(104)476-360215 [address] 08-13-2023 20:09-0400 Heart rate 71 /min Dr. Ganesh Garcia Work Phone: 9(602)753-608691 [place] [address] 06-06-2023 20:09-0400 Respiratory rate 16 /min Dr. Ganesh Garcia Work Phone: 0(314)122-812191 [place] [address] 06-06-2023 20:09-0400 SaO2% (BldA) [Mass fraction] 97 % Dr. Ganesh Garcia Work Phone: 3(206)930-175391 [place] [address] 06-06-2023 20:09-0400 Systolic blood pressure 178 mm[Hg] Dr. Ganesh Garcia Work Phone: 7(267)809-059891 [place] [address] 06-06-2023 18:42-0400 Body mass index (BMI) [Ratio] 38 kg/m2 Dr. Ganesh Garcia Work Phone: 6(238)220-122091 [place] [address] 06-06-2023 18:42-0400 Body weight [address] Ganesh Garcia Work Phone: 4(425)239-555991 [place] [address] 06-06-2023 17:48-0400 Body height 152.[address] Ganesh Garcia Work Phone: 9(475)204-076691 [place] [address] 06-06-2023 17:48-0400 Body temperature 96.9 [degF] Dr. Ganesh Garcia Work Phone: 1(528)610-191591 [place] [address] 06-04-2023 21:40-0400 Diastolic blood pressure 58 mm[Hg] Dr. Ganesh Garcia Work Phone: 5(802)348-787591 [place] [address] 06-04-2023 21:40-0400 Heart rate 85 /min Dr. Ganesh Garcia Work Phone: 3(576)598-513191 [place] [address] 06-04-2023 21:40-0400 Respiratory rate 18 /min Dr. Ganesh Garcia Work Phone: 6(162)306-313291 [place] [address] 06-04-2023 21:40-0400 SaO2% (BldA) [Mass fraction] 93 % Dr. Ganesh Garcia Work Phone: 1(517)265-165491 [place] [address] 06-04-2023 21:40-0400 Systolic blood pressure 118 mm[Hg] Dr. Ganesh Garcia Work Phone: 7(883)935-885991 [place] [address] 06-04-2023 19:28-0400 Body mass index (BMI) [Ratio] 37.9 kg/m2 Dr. Ganesh Garcia Work Phone: [facility] 06-04-2023 19:28-0400 Body weight 87.[address] Ganesh Garcia Work Phone: [facility] 06-04-2023 13:49-0400 Body height 152.[address] Ganesh Garcia Work Phone: [facility] 06-04-2023 13:49-0400 Body temperature 96.6 [degF] Dr. Ganesh Garcia Work Phone: [facility] 04-23-2023 14:35-0400 Body temperature 100 [degF] Vernon [employer]root [employer] Work Phone: [facility] 04-23-2023 14:35-0400 Body weight 81.1 kg Vernon Degroot [employer] Work Phone: [facility] 04-23-2023 14:35-0400 Diastolic blood pressure 82 mm[Hg] Vernon Degroot [employer] Work Phone: [facility] 04-23-2023 14:35-0400 Heart rate 94 /min Vernon Degroot [employer] Work Phone: [facility] 04-23-2023 14:35-0400 Respiratory rate 21 /min Vernon Degroot [employer] Work Phone: [facility] 04-23-2023 14:35-0400 SaO2% (BldA) [Mass fraction] 99 % Vernon Degroot [employer] Work Phone: [facility] 04-23-2023 14:35-0400 Systolic blood pressure 130 mm[Hg] Vernon Degroot [employer] Work Phone: [facility] 04-07-2023 13:09-0400 Body height 152.4 cm Dwayne Lopez MD Work Phone: [facility] 04-07-2023 13:09-0400 Body weight 81.65 kg Dwayne Lopez MD Work Phone: [facility] 04-07-2023 13:09-0400 Diastolic blood pressure 74 mm[Hg] Dwayne Lopez MD Work Phone: [facility] 04-07-2023 13:09-0400 Heart rate 80 /min Dwayne Lopez MD Work Phone: [facility] 04-07-2023 13:09-0400 Respiratory rate 16 /min Dwayne Lopez MD Work Phone: [facility] 04-07-2023 13:09-0400 Systolic blood pressure 112 mm[Hg] Dwayne Lopez MD Work Phone: [facility] 03-28-2023 09:08-0400 Body mass index (BMI) [Ratio] 35.6 kg/m2 Dr. Lizet Linares Work Phone: [facility] 03-28-2023 09:08-0400 Body weight 82.[address] Lizet Linares Work Phone: [facility] 03-28-2023 08:40-0400 Body height 152.[address] Lizet Linares Work Phone: [facility] 03-28-2023 08:40-0400 Body temperature 95 [degF] Dr. Lizet Linares Work Phone: [facility] 03-28-2023 08:40-0400 Diastolic blood pressure 76 mm[Hg] Dr. Lizet Linares Work Phone: [facility] 03-28-2023 08:40-0400 Heart rate 122 /min Dr. Lizet Linares Work Phone: [facility] 03-28-2023 08:40-0400 Respiratory rate 18 /min Dr. Lizet Linares Work Phone: [facility] 03-28-2023 08:40-0400 SaO2% (BldA) [Mass fraction] 100 % Dr. Lizet Linares Work Phone: [facility] 03-28-2023 08:40-0400 Systolic blood pressure 133 mm[Hg] Dr. Lizet Linares Work Phone: [facility] 03-24-2023 10:18-0400 Body weight 83.92 kg Dwayne Lopez MD Work Phone: [facility] 03-24-2023 10:18-0400 Diastolic blood pressure 64 mm[Hg] Dawyne Lopez MD Work Phone: [facility] 03-24-2023 10:18-0400 Heart rate 84 /min Dwayne Lopez MD Work Phone: [facility] 03-24-2023 10:18-0400 Respiratory rate 16 /min Dwayne Lopez MD Work Phone: [facility] 03-24-2023 10:18-0400 Systolic blood pressure 110 mm[Hg] Dwayne Lopez MD Work Phone: [facility] 02-11-2023 13:05-0400 Body height 152.[address] Lizet Linares Work Phone: [facility] 02-11-2023 13:05-0400 Body mass index (BMI) [Ratio] 35.9 kg/m2 Dr. Lizet Linares Work Phone: [facility] 02-11-2023 13:05-0400 Body weight 83.[address] Lizet Linares Work Phone: [facility] 02-11-2023 13:05-0400 Diastolic blood pressure 83 mm[Hg] Dr. Lizet Linares Work Phone: [facility] 02-11-2023 13:05-0400 Heart rate 88 /min Dr. Lizet Linares Work Phone: [facility] 02-11-2023 13:05-0400 Respiratory rate 18 /min Dr. Lizet Linares Work Phone: [facility] 02-11-2023 13:05-0400 SaO2% (BldA) [Mass fraction] 99 % Dr. Lizet Linares Work Phone: [facility] 02-11-2023 13:05-0400 Systolic blood pressure 152 mm[Hg] Dr. Lizet Linares Work Phone: [facility] 01-30-2023 00:39-0400 Body temperature 98 [degF] Dr. Lizet Linares Work Phone: [facility] 01-30-2023 00:39-0400 Diastolic blood pressure 85 mm[Hg] Dr. Lizet Linares Work Phone: [facility] 01-30-2023 00:39-0400 Heart rate 85 /min Dr. Lizet Linares Work Phone: [facility] 01-30-2023 00:39-0400 Respiratory rate 19 /min Dr. Lizet Linares Work Phone: [facility] 01-30-2023 00:39-0400 SaO2% (BldA) [Mass fraction] 97 % Dr. Lizet Linares Work Phone: [facility] 01-30-2023 00:39-0400 Systolic blood pressure 159 mm[Hg] Dr. Lizet Linares Work Phone: [facility] 01-29-2023 22:02-0400 Body mass index (BMI) [Ratio] 36.6 kg/m2 Dr. Lizet Linares Work Phone: [facility] 01-29-2023 22:02-0400 Body weight 85.[address] Lizet Linares Work Phone: [facility] 01-29-2023 21:18-0400 Body height 152.[address] Lizet Linares Work Phone: [facility] 01-07-2023 15:19-0400 Body mass index (BMI) [Ratio] 36.2 kg/m2 Dr. Ganesh Garcai Work Phone: 0(016)314-879191 [place] [address] 01-07-2023 15:19-0400 Body weight 84.[address] Ganesh Garcia Work Phone: 6(187)156-051391 [place] [address] 01-07-2023 15:17-0400 Body height 152.[address] Ganesh Garcia Work Phone: 0(918)203-496991 [place] [address] 01-07-2023 15:17-0400 Body temperature 96 [degF] Dr. Ganesh Garcia Work Phone: 0(093)602-084291 [place] [address] 01-07-2023 15:17-0400 Diastolic blood pressure 70 mm[Hg] Dr. Ganesh Garcia Work Phone: 1(773)949-881191 [place] [address] 01-07-2023 15:17-0400 Heart rate 95 /min Dr. Ganesh Garica Work Phone: 5(682)942-060391 [place] [address] 01-07-2023 15:17-0400 Respiratory rate 18 /min Dr. Ganesh Garcia Work Phone: 1(118)336-226291 [place] [address] 01-07-2023 15:17-0400 SaO2% (BldA) [Mass fraction] 99 % Dr. Ganesh Garcia Work Phone: 8(981)800-768791 [place] [address] 01-07-2023 15:17-0400 Systolic blood pressure 143 mm[Hg] Dr. Ganesh Garcia Work Phone: 2(148)014-715491 [place] [address] 01-06-2023 20:30-0400 Diastolic blood pressure 59 mm[Hg] Dr. Ganesh Garcia Work Phone: 6(734)567-817291 [place] [address] 01-06-2023 20:30-0400 Heart rate 84 /min Dr. Ganesh Garcia Work Phone: 6(557)467-174691 [place] [address] 01-06-2023 20:30-0400 Respiratory rate 19 /min Dr. Ganesh Garcia Work Phone: 0(015)873-118491 [place] [address] 01-06-2023 20:30-0400 SaO2% (BldA) [Mass fraction] 94 % Dr. Ganesh Garcia Work Phone: 1(721)856-077491 [place] [address] 01-06-2023 20:30-0400 Systolic blood pressure 145 mm[Hg] Dr. Ganesh Garcia Work Phone: 6(567)366-745991 [place] [address] 01-06-2023 17:40-0400 Body mass index (BMI) [Ratio] 36 kg/m2 Dr. Ganesh Garcia Work Phone: 4(009)742-581891 [place] [address] 01-06-2023 17:40-0400 Body weight 83.[address] Ganesh Garcia Work Phone: 7(819)437-741591 [place] [address] 01-06-2023 17:27-0400 Body temperature 98 [degF] Dr. Ganesh Garcia Work Phone: 5(399)932-143791 [place] [address] 01-06-2023 17:24-0400 Body height 152.[address] Ganesh Garcia Work Phone: 2(815)521-854491 [place] [address] 11-05-2022 05:00-0500 Diastolic blood pressure 75 mm[Hg] Dr. Ganesh Garcia Work Phone: 4(670)527-782791 [place] [address] 11-05-2022 05:00-0500 Heart rate 89 /min Dr. Ganesh Garcia Work Phone: 9(060)209-087291 [place] [address] 11-05-2022 05:00-0500 Respiratory rate 19 /min Dr. Ganesh Garcia Work Phone: 0(155)317-370391 [place] [address] 11-05-2022 05:00-0500 SaO2% (BldA) [Mass fraction] 95 % Dr. Ganesh Garcia Work Phone: 4(317)987-465091 [place] [address] 11-05-2022 05:00-0500 Systolic blood pressure 138 mm[Hg] Dr. Ganesh Garcia Work Phone: 0(790)948-363491 [place] [address] 11-05-2022 01:44-0500 Body height 152.[address] Ganesh Garcia Work Phone: 5(835)007-574891 [place] [address] 11-05-2022 01:44-0500 Body mass index (BMI) [Ratio] 33.7 kg/m2 Dr. Ganesh Garcia Work Phone: 1(171)037-568491 [place] [address] 11-05-2022 01:44-0500 Body temperature 96.7 [degF] Dr. Ganesh Garcia Work Phone: 7(319)867-269591 [place] [address] 11-05-2022 01:44-0500 Body weight 78.[address] Ganesh Garcia Work Phone: 3(568)812-473491 [place] [address] 10-09-2022 04:11-0500 Diastolic blood pressure 67 mm[Hg] Dr. Ganesh Garcia Work Phone: 7(124)580-828791 [place] [address] 10-09-2022 04:11-0500 Heart rate 68 /min Dr. Ganesh Garcia Work Phone: 8(426)590-354691 [place] [address] 10-09-2022 04:11-0500 Respiratory rate 18 /min Dr. Ganesh Garcia Work Phone: 2(569)034-317191 [place] [address] 10-09-2022 04:11-0500 SaO2% (BldA) [Mass fraction] 97 % Dr. Ganesh Garcia Work Phone: 9(901)267-641591 [place] [address] 10-09-2022 04:11-0500 Systolic blood pressure 100 mm[Hg] Dr. Ganesh Garcia Work Phone: 7(024)558-334291 [place] [address] 10-09-2022 01:29-0500 Body height 152.[address] Ganesh Garcia Work Phone: 9(286)373-910691 [place] [address] Work Phone: 10-09-2022 01:29-0500 Body mass index (BMI) [Ratio] 34.3 kg/m2 Dr. Ganesh Garcia Work Phone: 6(934)974-198791 [place] [address] 10-09-2022 01:29-0500 Body temperature 98.6 [degF] Dr. Ganesh Garcia Work Phone: 7(059)770-067791 [place] [address] 10-09-2022 01:29-0500 Body weight 79.[address] Ganesh Garcia Work Phone: 3(784)085-654015 [address] 09-09-2022 13:37-0500 Body height 152.[address] Ganesh Garcia Work Phone: 7(287)411-452591 [place] [address] Work Phone: 09-09-2022 13:37-0500 Diastolic blood pressure 71 mm[Hg] Dr. Ganesh Garcia Work Phone: 2(609)413-557815 [address] 09-09-2022 13:37-0500 Heart rate 88 /min Dr. Ganesh Garcia Work Phone: 7(122)471-909691 [place] [address] 09-09-2022 13:37-0500 Respiratory rate 16 /min Dr. Ganesh Garcia Work Phone: 1(186)405-894491 [place] [address] 09-09-2022 13:37-0500 Systolic blood pressure 101 mm[Hg] Dr. Ganesh Garcia Work Phone: 2(091)139-817691 [place] [address] 08-24-2022 07:19-0400 Diastolic blood pressure 49 mm[Hg] Dr. Ganesh Garcia Work Phone: 4(202)487-368091 [place] [address] 08-24-2022 07:19-0400 Heart rate 65 /min Dr. Ganesh Garcia Work Phone: 1(101)077-662691 [place] [address] 08-24-2022 07:19-0400 Respiratory rate 18 /min Dr. Ganesh Garcia Work Phone: 3(862)378-175191 [place] [address] 08-24-2022 07:19-0400 SaO2% (BldA) [Mass fraction] 93 % Dr. Ganesh Garcia Work Phone: 8(204)793-585891 [place] [address] 08-24-2022 07:19-0400 Systolic blood pressure 107 mm[Hg] Dr. Ganesh Garcia Work Phone: 1(023)892-576291 [place] [address] 08-24-2022 05:17-0400 Inhaled oxygen flow rate 1 L/min Dr. Ganesh Garcia Work Phone: 4(664)047-546091 [place] [address] 08-24-2022 03:19-0400 Body height 152.[address] Ganesh Garcia Work Phone: 2(665)005-428415 [address] Work Phone: 08-24-2022 03:19-0400 Body mass index (BMI) [Ratio] 33.4 kg/m2 Dr. Ganesh Garcia Work Phone: 2(838)819-550515 [address] 08-24-2022 03:19-0400 Body temperature 97.3 [degF] Dr. Ganesh Garcia Work Phone: 1(269)334-133115 [address] 08-24-2022 03:19-0400 Body weight 77.[address] Ganesh Garcia Work Phone: 9(691)891-128591 [place] [address] 06-12-2022 14:13-0400 Body height 152.[address] Jarred Lopez Work Phone: [facility] Work Phone: 06-12-2022 14:12-0400 Body mass index (BMI) [Ratio] 34.7 kg/m2 Dr. Jarred Lopez Work Phone: [facility] Work Phone: 06-12-2022 14:12-0400 Body weight 80.[address] Jarred Lopez Work Phone: [facility] Work Phone: 06-12-2022 14:12-0400 Diastolic blood pressure 58 mm[Hg] Dr. Jarred Lopez Work Phone: [facility] Work Phone: 06-12-2022 14:12-0400 Heart rate 68 /min Dr. Jarred Lopez Work Phone: [facility] Work Phone: 06-12-2022 14:12-0400 Respiratory rate 16 /min Dr. Jarred Lopez Work Phone: [facility] Work Phone: 06-12-2022 14:12-0400 Systolic blood pressure 106 mm[Hg] Dr. Jarred Lopez Work Phone: [facility] Work Phone: 05-21-2022 15:00-0400 Heart rate 73 /min Dr. Jarred Lopez Work Phone: [facility] Work Phone: 05-21-2022 14:55-0400 Diastolic blood pressure 71 mm[Hg] Dr. Jarred Lopez Work Phone: [facility] Work Phone: 05-21-2022 14:55-0400 Heart rate 74 /min Dr. Jarred Lopez Work Phone: [facility] Work Phone: 05-21-2022 14:55-0400 Respiratory rate 16 /min Dr. Jarred Lopez Work Phone: [facility] Work Phone: 05-21-2022 14:55-0400 SaO2% (BldA) [Mass fraction] 94 % Dr. Jarred Lopez Work Phone: [facility] Work Phone: 05-21-2022 14:55-0400 Systolic blood pressure 112 mm[Hg] Dr. Jarred Lopez Work Phone: [facility] Work Phone: 05-21-2022 14:44-0400 Inhaled oxygen flow rate 2 L/min Dr. Jarred Lopez Work Phone: [facility] Work Phone: 05-21-2022 11:46-0400 Body temperature 98.2 [degF] Dr. Jarred Lopez Work Phone: [facility] Work Phone: 05-21-2022 06:40-0400 Body height 152.[address] Jarred Lopez Work Phone: [facility] Work Phone: 05-21-2022 06:40-0400 Body mass index (BMI) [Ratio] 36.3 kg/m2 Dr. Jarred Lopez Work Phone: [facility] Work Phone: 05-21-2022 06:40-0400 Body weight 84.[address] Jarred Lopez Work Phone: [facility] Work Phone: 05-21-2022 03:08-0400 Body temperature 97.9 [degF] Dr. Jarred Lopez Work Phone: [facility] Work Phone: 05-21-2022 03:08-0400 Diastolic blood pressure 72 mm[Hg] Dr. Jarred Lopez Work Phone: [facility] Work Phone: 05-21-2022 03:08-0400 Heart rate 77 /min Dr. Jarred Lopez Work Phone: [facility] Work Phone: 05-21-2022 03:08-0400 Inhaled oxygen flow rate 2 L/min Dr. Jarred Lopez Work Phone: [facility] Work Phone: 05-21-2022 03:08-0400 Respiratory rate 19 /min Dr. Jarred Lopez Work Phone: [facility] Work Phone: 05-21-2022 03:08-0400 SaO2% (BldA) [Mass fraction] 96 % Dr. Jarred Lopez Work Phone: [facility] Work Phone: 05-21-2022 03:08-0400 Systolic blood pressure 116 mm[Hg] Dr. Jarred Lopez Work Phone: [facility] Work Phone: 05-20-2022 22:05-0400 Body height 152.[address] Jarred Lopez Work Phone: [facility] Work Phone: 05-20-2022 22:05-0400 Body mass index (BMI) [Ratio] 38.9 kg/m2 Dr. Jarred Lopez Work Phone: [facility] Work Phone: 05-20-2022 22:05-0400 Body weight 90.[address] Jarred Lopez Work Phone: [facility] Work Phone: 05-04-2022 00:00-0400 Diastolic blood pressure 61 mm[Hg] Dr. Jarred Lopez Work Phone: [facility] Work Phone: 05-04-2022 00:00-0400 Heart rate 79 /min Dr. Jarred Lopez Work Phone: [facility] Work Phone: 05-04-2022 00:00-0400 Respiratory rate 17 /min Dr. Jarred Lopez Work Phone: [facility] Work Phone: 05-04-2022 00:00-0400 SaO2% (BldA) [Mass fraction] 96 % Dr. Jarred Lopez Work Phone: [facility] Work Phone: 05-04-2022 00:00-0400 Systolic blood pressure 114 mm[Hg] Dr. Jarred Lopez Work Phone: [facility] Work Phone: 05-03-2022 19:54-0400 Body height 152.[address] Jarred Lopez Work Phone: [facility] Work Phone: 05-03-2022 19:54-0400 Body mass index (BMI) [Ratio] 37.8 kg/m2 Dr. Jarred Lopez Work Phone: [facility] Work Phone: 05-03-2022 19:54-0400 Body temperature 97.8 [degF] Dr. Jarred Lopez Work Phone: [facility] Work Phone: 05-03-2022 19:54-0400 Body weight [address] Jarred Lopez Work Phone: [facility] Work Phone: 04-25-2022 15:04-0400 Heart rate 72 /min Dr. Jarred Lopez Work Phone: [facility] Work Phone: 04-25-2022 11:53-0400 Body temperature 97.8 [degF] Dr. Jarred Lopez Work Phone: [facility] Work Phone: 04-25-2022 11:53-0400 Diastolic blood pressure 65 mm[Hg] Dr. Jarred Lopez Work Phone: [facility] Work Phone: 04-25-2022 11:53-0400 Respiratory rate 16 /min Dr. Jarred Lopez Work Phone: [facility] Work Phone: 04-25-2022 11:53-0400 SaO2% (BldA) [Mass fraction] 94 % Dr. Jarred Lopez Work Phone: [facility] Work Phone: 04-25-2022 11:53-0400 Systolic blood pressure 105 mm[Hg] Dr. Jarred Lopez Work Phone: [facility] Work Phone: 04-25-2022 09:47-0400 Inhaled oxygen flow rate 2 L/min Dr. Jarred Lopez Work Phone: [facility] Work Phone: 04-24-2022 17:41-0400 Body height 152.[address] Jarred Lopez Work Phone: [facility] Work Phone: 04-24-2022 17:41-0400 Body mass index (BMI) [Ratio] 35.4 kg/m2 Dr. Jarred Lopez Work Phone: [facility] Work Phone: 04-24-2022 17:41-0400 Body weight 82.[address] Jarred Lopez Work Phone: [facility] Work Phone: 03-30-2022 15:00-0400 Body temperature 97.2 [degF] Dr. Jarred Lopez Work Phone: [facility] Work Phone: 03-30-2022 15:00-0400 Diastolic blood pressure 86 mm[Hg] Dr. Jarred Lopez Work Phone: [facility] Work Phone: 03-30-2022 15:00-0400 Heart rate 81 /min Dr. Jarred Lopez Work Phone: [facility] Work Phone: 03-30-2022 15:00-0400 Respiratory rate 16 /min Dr. Jarred Lopez Work Phone: [facility] Work Phone: 03-30-2022 15:00-0400 SaO2% (BldA) [Mass fraction] 96 % Dr. Jarred Lopez Work Phone: [facility] Work Phone: 03-30-2022 15:00-0400 Systolic blood pressure 114 mm[Hg] Dr. Jarred Lopez Work Phone: [facility] Work Phone: 03-28-2022 13:35-0400 Inhaled oxygen flow rate 2 L/min Dr. Jarred Lopez Work Phone: [facility] Work Phone: 03-20-2022 18:30-0400 Body temperature 97.1 [degF] Dr. Jarred Lopez Work Phone: [facility] Work Phone: 03-20-2022 18:30-0400 Diastolic blood pressure 89 mm[Hg] Dr. Jarred Lopez Work Phone: [facility] Work Phone: 03-20-2022 18:30-0400 Heart rate 80 /min Dr. Jarred Lopez Work Phone: [facility] Work Phone: 03-20-2022 18:30-0400 Respiratory rate 16 /min Dr. Jarred Lopez Work Phone: [facility] Work Phone: 03-20-2022 18:30-0400 SaO2% (BldA) [Mass fraction] 100 % Dr. Jarred Lopez Work Phone: [facility] Work Phone: 03-20-2022 18:30-0400 Systolic blood pressure 137 mm[Hg] Dr. Jarred Lopez Work Phone: [facility] Work Phone: 03-20-2022 18:20-0400 Body height 152.[address] Jarred Lopez Work Phone: [facility] Work Phone: 03-20-2022 18:20-0400 Body mass index (BMI) [Ratio] 32.3 kg/m2 Dr. Jarred Lopez Work Phone: [facility] Work Phone: 03-20-2022 18:20-0400 Body weight [address] Jarred oLpez Work Phone: [facility] Work Phone: 02-24-2022 16:22-0400 Heart rate 84 /min [facility] Work Phone: 02-24-2022 16:22-0400 Respiratory rate 16 /min [facility] Work Phone: 02-24-2022 16:22-0400 SaO2% (BldA) [Mass fraction] 97 % [facility] Work Phone: 02-24-2022 15:40-0400 Diastolic blood pressure 60 mm[Hg] [facility] Work Phone: 02-24-2022 15:40-0400 Systolic blood pressure 108 mm[Hg] [facility] Work Phone: 02-24-2022 13:02-0400 Body height 152.4 cm [facility] Work Phone: 02-24-2022 13:02-0400 Body mass index (BMI) [Ratio] 29.7 kg/m2 [facility] Work Phone: 02-24-2022 13:02-0400 Body temperature 97.6 [degF] [facility] Work Phone: 02-24-2022 13:02-0400 Body weight 68.94 kg [facility] Work Phone: 01-13-2022 19:41-0400 Diastolic blood pressure 70 mm[Hg] [facility] Work Phone: 01-13-2022 19:41-0400 Heart rate 74 /min [facility] Work Phone: 01-13-2022 19:41-0400 Respiratory rate 17 /min [facility] Work Phone: 01-13-2022 19:41-0400 SaO2% (BldA) [Mass fraction] 97 % [facility] Work Phone: 01-13-2022 19:41-0400 Systolic blood pressure 95 mm[Hg] [facility] Work Phone: 01-13-2022 14:20-0400 Body height 152.4 cm [facility] Work Phone: 01-13-2022 14:20-0400 Body mass index (BMI) [Ratio] 29.7 kg/m2 [facility] Work Phone: 01-13-2022 14:20-0400 Body temperature 97.3 [degF] [facility] Work Phone: 01-13-2022 14:20-0400 Body weight 68.94 kg [facility] Work Phone: 09-27-2021 14:38-0500 Body mass index (BMI) [Ratio] 28.7 kg/m2 [facility] Work Phone: 09-27-2021 14:38-0500 Body temperature 96.6 [degF] [facility] Work Phone: 09-27-2021 14:38-0500 Body weight 66.67 kg [facility] Work Phone: 09-27-2021 14:38-0500 Diastolic blood pressure 80 mm[Hg] [facility] Work Phone: 09-27-2021 14:38-0500 Heart rate 100 /min [facility] Work Phone: 09-27-2021 14:38-0500 Respiratory rate 16 /min [facility] Work Phone: 09-27-2021 14:38-0500 SaO2% (BldA) [Mass fraction] 100 % [facility] Work Phone: 09-27-2021 14:38-0500 Systolic blood pressure 154 mm[Hg] [facility] Work Phone: 07-28-2017 17:13-0400 BMI (Body Mass Index) 32.38 kg/m2 Angelika De La Torre LPN [facility] Work Phone: 07-28-2017 17:13-0400 Body Temperature 98.3 [degF] Angelika De La Torre LPN [facility] Work Phone: 07-28-2017 17:13-0400 BP Diastolic 76 mm[Hg] Angelika De La Torre LPN [facility] Work Phone: 07-28-2017 17:13-0400 BP Systolic 124 mm[Hg] Angelika De La Torre LPN [facility] Work Phone: 07-28-2017 17:13-0400 Height 152.4 cm Angelika De La Torre LPN [facility] Work Phone: 07-28-2017 17:13-0400 Pulse (Heart Rate) 72 /min Angelika De La Torre LPN [facility] Work Phone: 07-28-2017 17:130400 Respiratory Rate 15 /min Angelika De La Torre [facility] Work Phone: 07-28-2017 17:130400 Weight 75.21 kg Angelika De La Torre [facility] Work Phone: 02-04-2012 [id number] BSA (Body Surface Area) 1.75 m2 Angelika De La Torre [facility] Work Phone: Encounters Encounter Date Encounter Type Care Provider Facility Start: 09-03-2025 ambulatory Ana Maria NOLASCO Fac ility:[facility] Start: 08-15-2025 End: 08-15-2025 [facility] Start: 07-31-2025 End: 07-31-2025 [facility] Start: 07-30-2025 ambulatory Efmarcelle Linares Facili ty:[facility] Start: 07-30-2025 Dr. Júnior Lombardo MD -[facility] Start: 07-26-2025 ambulatory Ana Maria NOLASCO Fac ility:[facility] Start: 07-26-2025 End: 07-26-2025 Shonda REYNOLDS -[facility] Work Phone: Start: 07-26-2025 End: 07-26-2025 ambulatory Shonda REYNOLDS Facility:[facility] Start: 07-17-2025 End: 07-17-2025 Dr. Rosa Maria Hagan MD -[facility] Work Phone: Start: 07-17-2025 End: 07-17-[address] Lizet Linares MD Work Phone: -[facility] Start: 07-06-2025 End: 07-06-[address] Lizet Linares MD Work Phone: -[facility] Start: 07-06-2025 End: 07-06-[address] Lizet Linares MD Work Phone: [facility] Start: 07-06-2025 End: 07-06-2025 Lizet Linares MD [facility] Start: 07-06-2025 End: 07-06-2025 ambulatory Ayman Basali Facility:[facility] Start: 06-28-2025 ambulatory Efmarcelle Linares Facili ty:[facility] Start: 06-28-2025 Lizet Linares MD [facility] Start: 06-15-2025 End: 06-15-2025 Dr. Juan Whatley MD -[facility] Work Phone: Start: 06-15-2025 End: 06-15-[address] Lizet Linares MD Work Phone: [facility] Start: 06-11-2025 ambulatory Lizet Linares OLS Fa cility:[facility]: [facility] Start: 06-07-2025 End: 06-07-2025 Dr. Juan Whatley MD -[facility] Work Phone: Start: 06-07-2025 End: 06-07-[address] Lizet Linares MD Work Phone: -[facility] Start: 06-05-2025 End: 06-05-[address] Lizet Linares MD Work Phone: [facility] Start: 06-05-2025 End: 06-05-2025 Dr. Lizet Linares MD -[facility] Work Phone: Start: 06-04-2025 ambulatory Efmarcelle Linares Facili ty:[facility] Start: 06-04-2025 [facility]: [facility] Start: 06-01-2025 Non-patient / Non-visit Dr. Juan lan MD [facility] Start: 06-01-2025 Dr. Juan Whatley MD [facility] Start: 05-31-2025 Non-patient / Non-visit Dr. Juan lan MD [facility] Start: 05-31-2025 Dr. Juan Whatley MD [facility] Start: 05-31-2025 Non-patient / Non-visit Dr. John hawk MD [facility] Work Phone: Start: 05-31-2025 Dr. John Shaw MD [facility] Work Phone: Start: 05-30-2025 Non-patient / Non-visit Dr. Juan lan MD [facility] Start: 05-30-2025 Dr. Juan Whatley MD [facility] Start: 05-30-2025 Non-patient / Non-visit Dr. John hawk MD [facility] Work Phone: Start: 05-30-2025 Dr. John Shaw MD [facility] Work Phone: Start: 05-29-2025 Non-patient / Non-visit Dr. John hawk MD [facility] Work Phone: Start: 05-29-2025 Dr. John Shaw MD [facility] Work Phone: Start: 05-28-2025 End: 05-28-[address] Lizet Linares MD Work Phone: -[facility] Start: 05-28-2025 End: 05-28-2025 Ana Maria Geller NP-C -[facility] Work Phone: Start: 05-28-2025 ambulatory Chavez Alcala [...] ambulatory Dr. Lizet Linares MD Work Phone: [facility] Start: 05-25-2025 End: 05-25-2025 Ana Mariatom Geller [facility] Work Phone: Start: 05-07-2025 End: 05-07-2025 Patient encounter procedure Ana Maria Geller [facility] Work Phone: Start: 05-07-2025 End: 05-07-[address] Lizet Linares MD Work Phone: [facility] Start: 05-07-2025 Registered Referred Lizet Linares MD [facility] Start: 05-07-2025 End: 05-07-2025 Lizet Linares MD [facility] Start: 05-04-2025 End: 05-04-[address] Lizet Linares MD Work Phone: [facility] Start: 05-04-2025 End: 05-04-2025 Patient encounter procedure Ana Maria Geller [facility] Work Phone: Start: 05-04-2025 End: 05-04-2025 Ana Mariatom Geller [facility] Work Phone: Start: 05-03-2025 ambulatory Lizet Richardson ty:[facility] Start: 05-01-2025 End: 05-01-[address] Lizet Linares MD Work Phone: [facility] Start: 05-01-2025 End: 05-01-2025 Patient encounter procedure Ana Maria Geller [facility] Work Phone: Start: 05-01-2025 End: 05-01-2025 Ana Maria Geller [facility] Work Phone: Start: 04-25-2025 End: 04-25-[address] Lizet Linares MD Work Phone: [facility] Start: 04-25-2025 Registered Referred Lizet Linares MD -[facility] Start: 04-25-2025 End: 04-25-2025 Lizet Linares MD [facility] Start: 04-25-2025 End: 04-25-2025 ambulatory Lizet NOLASCO Facility:[facility] Start: 04-20-2025 End: 04-20-[address] Lizet Linares MD Work Phone: [facility] Start: 04-20-2025 End: 04-20-2025 Patient encounter procedure Ana Maria Geller [facility] Work Phone: Start: 04-20-2025 End: 04-20-2025 Ana Maria Geller [facility] Work Phone: Start: 04-12-2025 ambulatory Lizet NOLASCO Fa cility:[facility] Start: 04-12-2025 Registered Referred Lizet Linares MD [facility] Start: 04-12-2025 Lizet Linares MD [facility] Start: 04-12-2025 End: 04-12-[address] Lizet Linares MD Work Phone: [facility] Start: 04-12-2025 End: 04-12-2025 Patient encounter procedure Claude REYNOLDS [facility] Work Phone: Start: 04-12-2025 End: 04-12-2025 Claude REYNOLDS [facility] Work Phone: Start: 04-06-2025 End: 04-06-[address] Lizet Linares MD Work Phone: [facility] Start: 04-06-2025 Registered Referred Lizet Linares MD [facility] Start: 04-06-2025 End: 04-06-2025 Lizet iLnares MD [facility] Start: 04-06-2025 End: 04-06-2025 ambulatory Lizet NOLASCO Facility:[facility] Start: 03-29-2025 ambulatory [facility] Facility:[facility] Start: 03-29-2025 Registered Referred Lizet Linares MD [facility] Start: 03-29-2025 Lizet Linares MD [facility] Start: 03-27-2025 End: 03-27-[address] Lizet Linares MD Work Phone: [facility] Start: 03-27-2025 End: 03-27-[address] Lizet Linares MD -[facility] Work Phone: Start: 03-27-2025 End: 03-27-2025 Dr. Lizet Linares MD -[facility] Work Phone: Start: 03-21-2025 End: 04-12-2025 ambulatory Dwayne Lopez MD Work Phone: [address] [place] [address] Comment on above: Diabetes Start: 03-20-2025 End: 03-20-2025 ambulatory Dwayne Lopez MD Work Phone: [facility] Start: 03-20-2025 End: 03-20-2025 Patient encounter procedure Dwayne Lopez MD Work Phone: [facility] Comment on above: Population Health Na vigation Outreach [facility] Start: 03-13-2025 End: 03-13-[address] Lizet Linares MD Work Phone: [facility] Start: 03-13-2025 End: 03-13-2025 Patient encounter procedure Ana Maria Geller INSTRUMENT MAN-C -[facility] Work Phone: Start: 03-13-2025 End: 03-13-2025 Ana Maria Geller INSTRUMENT MAN-C -[facility] Work Phone: Start: 03-12-2025 End: 03-12-[address] Lizet Linares MD Work Phone: [facility] Work Phone: Start: 03-12-2025 End: 03-12-2025 Departed Referred Lizet Linares MD -[facility] Start: 03-12-2025 End: 03-12-2025 Lizet Linares MD -[facility] Start: 03-12-2025 End: 03-12-2025 ambulatory Lizet NOLASCO Facility:[facility] Start: 03-08-2025 End: 03-08-[address] Lizet Linares MD Work Phone: [facility] Start: 03-08-2025 End: 03-08-2025 Patient encounter procedure Ana Maria Geller [employer]STRUMENT [employer]-C -[facility] Work Phone: Start: 03-08-2025 End: 03-08-2025 Ana Maria Geller INSTRUMENT MAN-C -[facility] Work Phone: Start: 03-05-2025 End: 03-05-2025 Patient encounter procedure Ana Maria Geller INSTRUMENT MAN-C -[facility] Work Phone: Start: 03-05-2025 End: 03-05-[address] Lizet Linares MD Work Phone: [facility] Start: 03-05-2025 Registered Referred Ana Maria MOODY [facility] Start: 03-05-2025 End: 03-05-2025 Ana Maria Geller NP-Zeus -[facility] Work Phone: Start: 02-26-2025 End: 02-26-[address] Lizet Linares MD Work Phone: [facility] Start: 02-26-2025 End: 02-26-2025 Patient encounter procedure Ana Maria MOODY -[facility] Work Phone: Start: 02-26-2025 End: 02-26-2025 Ana Maria MOODY -[facility] Work Phone: Start: 02-12-2025 End: 02-12-2025 ambulatory Elizabeth Jennings [facility] Work Phone: [facility] Start: 02-12-2025 End: 02-12-2025 Patient encounter procedure Elizabeth Jennings [facility] Work Phone: [facility] Start: 02-06-2025 End: 03-09-2025 ambulatory Dwayne Lpoez MD Work Phone: [facility] Start: 01-30-2025 End: 01-30-2025 Patient encounter procedure Shonad REYNOLDS -[facility] Work Phone: Start: 01-30-2025 End: 01-30-2025 ambulatory Efshanicebe Milagros Facility:[facility] Start: 01-23-2025 End: 01-23-2025 ambulatory Efmarcelle Linares Facility:[facility] Start: 01-23-2025 End: 01-23-[address] Lizet Linares MD -[facility] Work Phone: Start: 01-22-2025 End: 01-22-2025 ambulatory Lizet Linares Facility:[facility] Start: 01-22-2025 End: 01-22-2025 Patient encounter procedure Ana Maria Geller INSTRUMENT MAN-Zeus -[facility] Work Phone: Start: 01-22-2025 End: 01-22-2025 Ana Maria Geller INSTRUMENT MAN-C -[facility] Work Phone: Start: 01-22-2025 End: 01-22-2025 Dr. Lizet Linares MD Work Phone: -Emergency Department Work Phone: Start: 01-22-2025 End: 01-22-2025 Emergency department patient visit Dr. Lizet Linares MD Work Phone: [facility] Work Phone: Start: 01-05-2025 End: 01-05-2025 ambulatory Dwayne Lopez MD Work Phone: [facility] Comment on above: Allied Health Visit (Medication Adherence Outreach/) Start: 01-05-2025 End: 01-05-2025 Departed Referred Lizet Linares MD [facility] Start: 01-05-2025 End: 01-05-2025 Lizet Linares MD [facility] Start: 01-04-2025 End: 01-05-2025 ambulatory Lizet NOLASCO Facility:[facility] Start: 01-04-2025 End: 01-04-2025 Patient encounter procedure Claude REYNOLDS [facility] Work Phone: Start: 01-04-2025 End: 01-04-2025 Claude REYNOLDS [facility] Work Phone: Start: 12-07-2024 ambulatory Lizet Linares OLS Fa cility:[facility] Start: 12-07-2024 [facility] Start: 12-07-2024 Lizet Linares MD [facility] Start: 11-30-2024 ambulatory Efmarcelle NOLASCO Fa cility:[facility] Start: 11-30-2024 [facility]: [facility] Start: 11-29-2024 End: 11-29-2024 ambulatory Ashish Bray SARITA [facility] Start: 11-29-2024 End: 11-29-2024 Patient encounter procedure Ashish Lingnahed STEIN [facility] [place] Comment on above: Population Health Na vigation Outreach ([facility]) Start: 11-28-2024 End: 11-28-2024 ambulatory Lizet Linares Facility:[facility] Start: 11-28-2024 End: 11-28-[address] Lizet Linares MD -[facility] Work Phone: Start: 11-28-2024 End: 11-28-2024 Dr. Lizet Linares MD -[facility] Work Phone: Start: 11-24-2024 ambulatory Lizet Linares OLS Fa cility:[facility] Start: 11-24-2024 [facility] Start: 11-17-2024 End: 11-17-2024 [facility] Start: 11-17-2024 End: 11-17-2024 ambulatory Lizet NOLASCO Facility:[facility] Start: 11-10-2024 End: 11-10-2024 Lizet Linares MD [facility] Start: 11-10-2024 End: 11-10-2024 ambulatory Efmarcelle Linares Facility:[facility] Start: 11-03-2024 ambulatory Efewongbe Germane OLS Fa cility:[facility] Start: 11-03-2024 [facility] Start: 11-01-2024 End: 11-01-2024 [facility] Start: 11-01-2024 End: 11-01-2024 ambulatory Efewongbe Oleghe Facility:[facility] Start: 10-27-2024 End: 10-27-2024 ambulatory Ana Maria Geller INSTRUMENT MAN Facility:[facility] Start: 10-27-2024 End: 10-27-2024 Ana Maria Geller INSTRUMENT MAN- -[facility] Work Phone: Start: 10-24-2024 End: 10-24-2024 Dr. Salvador Campbell DO -Emergency Departky nt Work Phone: Start: 10-24-2024 End: 10-24-2024 Emergency department patient visit Efchristaongbe Germane Facility:[facility] Start: 10-20-2024 ambulatory Efewongbe Oleghe Facili ty:[facility] Start: 10-20-2024 Lizet Linares MD [facility] Start: 10-13-2024 ambulatory Efewongbe Oleghe Facili ty:[facility] Start: 10-13-2024 Lizet Linares MD [facility] Start: 10-06-2024 ambulatory Efewongbe Oleghe Facili ty:[facility] Start: 10-06-2024 End: 10-06-2024 Lizet Linares MD [facility] Start: 10-06-2024 End: 10-06-2024 ambulatory Efewongbe Oleghe Facility:[facility] Start: 09-29-2024 End: 09-29-2024 Lizet Linares MD [facility] Start: 09-29-2024 End: 09-29-2024 ambulatory Efewongbe Oleghe Facility:[facility] Start: 09-26-2024 End: 09-27-2024 ambulatory Efewongbe Oleghe Facility:[facility] Start: 09-26-2024 End: 09-27-2024 Dr. Lizet Linares MD -[facility] Work Phone: Start: 09-22-2024 End: 09-22-2024 ambulatory Efewongbe Oleghe Facility:[facility] Start: 09-20-2024 End: 09-20-2024 ambulatory [facility] Facility:[facility] Start: 09-15-2024 End: 09-15-2024 ambulatory [facility] Facility:[facility] Start: 09-13-2024 End: 09-13-2024 ambulatory [facility] Facility:[facility] Start: 09-08-2024 End: 09-08-2024 ambulatory Irena Wild [facility] Start: 09-08-2024 End: 09-08-2024 Patient encounter procedure Irena Wild [facility] Comment on above: Population Health Na vigation Outreach (Vinh No PCP ) Start: 09-08-2024 End: 09-08-2024 ambulatory [facility] Facility:[facility] Start: 04-06-2024 ambulatory Mel Peacock RN Work Phone: Staff Nurse [employer] [facility] Comment on above: ACM TIARA RN Start: 03-28-2024 ambulatory Mel Peacock RN Work Phone: Staff Nurse [facility] Start: 03-21-2024 Refill Dwayne Lopez MD Work Phone: [facility] Comment on above: Refill Request Start: 03-08-2024 ambulatory Dwyane Lopez MD Work Phone: Internal Medicine [facility] [place] Start: 02-25-2024 Dr. Jarred Lopez Work Phone: [facility] Start: 02-18-2024 End: 02-18-[address] Jarred Lopez Work Phone: [facility] Work Phone: Start: 02-18-2024 End: 02-18-2024 Dr. Jarred Lopez Work Phone: [facility] Start: 02-17-2024 ambulatory Annabel [facility] [place] Start: 02-17-2024 Patient encounter procedure Annabel Agrawal MA [facility] [place] Comment on above: Population Health Na vigation Outreach ([facility] SARITA 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 - AWV, Care gaps, HCC gap closure - [facility]) Start: 02-11-2024 End: 02-11-[address] Jarred Lopez Work Phone: [facility] Work Phone: Start: 02-11-2024 End: 02-11-2024 Dr. Jarred Lopez Work Phone: [facility] Start: 02-10-2024 ambulatory Dwayne Lopez MD Work Phone: [facility] Comment on above: Allied Health Visit (Medication Adherence Outreach ) Start: 02-09-2024 Dr. Jarred Lopez Work Phone: [facility] Start: 02-04-2024 End: 02-04-[address] Jarred Lopez Work Phone: [facility] Work Phone: Start: 02-04-2024 End: 02-04-2024 Dr. Jarred Lopez Work Phone: [facility] Start: 02-02-2024 End: 02-02-[address] Jarred Lopez Work Phone: [facility] Work Phone: Start: 02-02-2024 End: 02-02-2024 Dr. Jarred Lopez Work Phone: [facility] Start: 02-01-2024 End: 02-01-2024 Dr. Jarred Lopez Work Phone: [facility] Work Phone: Start: 01-28-2024 Dr. Jarred Lopez Work Phone: [facility] Start: 01-24-2024 Telephone encounter Jarred Lopez MD Work Phone: [facility] Comment on above: Appointment Start: 01-21-2024 Dr. Jarred Lopez Work Phone: [facility] Start: 01-20-2024 End: 01-20-2024 Emergency department patient visit Dr. Jarred Lopez Work Phone: [facility] Work Phone: Start: 01-20-2024 End: 01-20-2024 Dr. Jarred Lopez Work Phone: [facility]-Emergency Department Work Phone: Start: 01-19-2024 Dr. Jarred Lopez Work Phone: [facility] Start: 01-17-2024 Dr. Jarred Lopez Work Phone: [facility] Start: 01-14-2024 Dr. Jarred Lopez Work Phone: [facility] Start: 01-12-2024 Dr. Jarred Lopez Work Phone: [facility] Start: 01-07-2024 Dr. Jarred Lopez Work Phone: [facility] Start: 01-06-2024 ambulatory Rachel Perea LPN [facility] Start: 01-06-2024 Telephone encounter Jarred Lopez MD Work Phone: [facility] Comment on above: Appointment (Hospita l follow up (40 min as patient hasn't followed up as advised either LEA March 2023)) Transition Of Care Start: 01-05-2024 Dr. Jarred Lopez Work Phone: [facility] Work Phone: Start: 01-04-2024 Dr. Jarred Lopez Work Phone: [facility] Work Phone: Start: 01-03-2024 Dr. Jarred Lopez Work Phone: [facility] Work Phone: Start: 01-03-2024 Non-patient / Non-visit Dr. Adriana Lopez Work Phone: [facility] Start: 01-03-2024 Dr. Jarred Lopez Work Phone: [facility] Start: 01-02-2024 Non-patient / Non-visit Dr. Adriana Lopez Work Phone: [facility] Work Phone: Start: 01-02-2024 Dr. Jarred Lopez Work Phone: [facility] Work Phone: Start: 01-01-2024 Evaluation and manag ement of inpatient Dr. Jarred Lopez Work Phone: [facility] Work Phone: Start: 01-01-2024 End: 01-05-[address] Jarred oLpez Work Phone: [facility] Work Phone: Start: 01-01-2024 End: 01-05-2024 Dr. Jarred Lopez Work Phone: [facility] Work Phone: Start: 12-31-2023 End: 12-31-[address] Jarred Lopez Work Phone: [facility] Work Phone: Start: 12-31-[address] Luis Carlos Lopez Work Phone: [facility] Start: 12-31-2023 End: 12-31-2023 Dr. Jarred Lopez Work Phone: [facility] Start: 12-29-2023 End: 12-29-[address] Jarred Lopez Work Phone: [facility] Work Phone: Start: 12-29-[address] Luis Carlos Lopez Work Phone: [facility] Start: 12-29-2023 End: 12-29-2023 Dr. Jarred Lopez Work Phone: [facility] Start: 12-24-2023 End: 12-24-[address] Jarred Lopez Work Phone: [facility] Work Phone: Start: 12-24-[address] Luis Carlos Lopez Work Phone: [facility] Start: 12-24-2023 End: 12-24-2023 Dr. Jarred Lopez Work Phone: [facility] Start: 12-17-2023 End: 12-17-[address] Jarred Lopez Work Phone: [facility] Work Phone: Start: 12-17-2023 End: 12-17-[address] Jarred Lopze Work Phone: [facility] Start: 12-17-[address] Luis Carlos Lopez Work Phone: [facility] Start: 12-17-2023 End: 12-17-2023 Dr. Jarred Lopez Work Phone: [facility] Start: 12-10-[address] Luis Carlos Lopez Work Phone: [facility] Start: 12-10-2023 Dr. Jarred Lopez Work Phone: [facility] Start: 12-07-2023 End: 12-07-2023 Dr. Jarred Lopez Work Phone: [facility] Work Phone: Start: 11-26-[address] Luis Carlos Lopez Work Phone: [facility] Start: 11-26-2023 Dr. Jarred Lopez Work Phone: [facility] Start: 11-25-2023 End: 11-25-2023 Dr. Jarred Lopez Work Phone: [facility] Work Phone: Start: 11-24-2023 Non-patient / Non-visit Dr. Adriana Lopez Work Phone: [facility] Work Phone: Start: 11-24-2023 Dr. Jarred Lopez Work Phone: [facility] Work Phone: Start: 11-23-2023 Non-patient / Non-visit Dr. Adriana Lopez Work Phone: [facility] Work Phone: Start: 11-23-2023 Dr. Jarred Lopez Work Phone: [facility] Work Phone: Start: 11-22-2023 Non-patient / Non-visit Dr. Adriana Lopez Work Phone: [facility] Work Phone: Start: 11-22-2023 Dr. Jarred Lopez Work Phone: [facility] Work Phone: Start: 11-21-2023 Non-patient / Non-visit Dr. Adriana Lopez Work Phone: [facility] Work Phone: Start: 11-21-2023 Dr. Jarred Lopez Work Phone: [facility] Work Phone: Start: 11-20-2023 Non-patient / Non-visit Dr. Adriana Lopez Work Phone: [facility] Work Phone: Start: 11-20-2023 Dr. Jarred Lopez Work Phone: [facility] Work Phone: Start: 11-19-2023 Non-patient / Non-visit Dr. Adriana Lopez Work Phone: [facility] Work Phone: Start: 11-19-2023 End: 11-24-2023 Evaluation and management of inpatient Dr. Jarred Lopez Work Phone: [facility] Work Phone: Start: 11-19-[address] Lincoln Lopez Work Phone: [facility] Work Phone: Start: 11-19-2023 End: 11-24-2023 Dr. Jarred Lopez Work Phone: [facility] Work Phone: Start: 09-20-2023 ambulatory Dwayne Lopez MD Work Phone: [facility] Comment on above: Allied Health Visit (Medication Adherence Outreach ) Start: 08-20-2023 ambulatory Dwayne Lopez MD Work Phone: [facility] Comment on above: Allied Health Visit (Medication Adherence Outreach ) Start: 08-18-2023 ambulatory [facility] [place] Comment on above: Population Health Na vigation Outreach ([place] care gaps ) Refill Request Start: 06-10-2023 End: 06-10-2023 Emergency department patient visit [facility]anes[facility] Start: 06-10-2023 ambulatory Dwayne Lopez MD Work Phone: [facility] Comment on above: Constipation Start: 06-07-2023 Telephone encounter Jarred Lopez MD Work Phone: [facility] Comment on above: Appointment (ER foll ow up visit) Start: 06-06-2023 End: 06-06-2023 Emergency department patient visit Dr. Ganesh Garcia Work Phone: [facility] Work Phone: Start: 06-04-2023 End: 06-04-2023 Emergency department patient visit Dr. Ganesh Garcia Work Phone: [facility] Work Phone: Start: 05-20-2023 ambulatory Dwayne Lopez MD Work Phone: [facility] Comment on above: Allied Health Visit (Medication Adherence Outreach/) Refill Request Start: 05-04-2023 ambulatory Dwayne Lopez MD Work Phone: [facility] Start: 04-23-2023 End: 04-23-2023 Patient encounter procedure Vernon Degroot APRN.CNP Work Phone: [facility] Comment on above: Toothache (Primary D x) Start: 04-08-2023 ambulatory Pcp (Historical) [facility] Start: 04-07-2023 Telephone encounter Jarred Lopez MD Work Phone: [facility] Comment on above: Appointment Start: 04-07-2023 End: 04-07-2023 Patient encounter procedure Dwayne Lopez MD Work Phone: [facility] Comment on above: Generalized weakness (Primary Dx); Acute constipation; Diabetes mellitus type 2 with neurological manifestations (HCC); Diabetic polyneuropathy associated with type 2 diabetes mellitus (HCC); Hyperlipidemia associated with type 2 diabetes mellitus (HCC); Change in vision; Globus sensation; Onychomycosis; Acquired hypothyroidism; Screening for colon cancer; Encounter for immunization; Stage 3a chronic kidney disease ([facility]); Hyperparathyroidism (HCC); Opioid dependence, continuous ([facility]) Start: 03-28-2023 End: 03-28-2023 Emergency department patient visit Dr. Lizet Linares Work Phone: [facility] Start: 03-24-2023 End: 03-24-2023 Patient encounter procedure Dwayne Lopez MD Work Phone: [facility] Comment on above: Globus sensation (Pr imary Dx); Gastroesophageal reflux disease, unspecified whether esophagitis present Start: 03-17-2023 End: 03-17-[address] Ganesh Garcia Work Phone: [facility] Work Phone: Start: 03-16-2023 End: 03-16-[address] Lizet Linares Work Phone: [facility] Work Phone: Start: 03-16-2023 End: 03-16-[address] Lizet Linares Work Phone: [facility] Start: 03-09-2023 End: 03-09-[address] Ganesh Garcia Work Phone: [facility] Work Phone: Start: 03-02-2023 End: 03-02-[address] Lizet Linares Work Phone: [facility] Start: 03-01-2023 End: 03-01-[address] Lizet Linares Work Phone: [facility] Start: 02-23-2023 ambulatory No [facility] Comment on above: Allied Health Visit (Medication Adherence Outreach ) Start: 02-16-2023 End: 02-16-[address] Lizet Linares Work Phone: [facility] Start: 02-11-2023 End: 02-11-[address] Lizet Linares Work Phone: [facility] Start: 02-02-2023 End: 02-02-[address] Lizet Linares Work Phone: [facility] Start: 02-02-2023 Dr. Lizet Linares Work Phone: [facility] Start: 01-30-2023 End: 01-30-[address] Lizet Linares Work Phone: [facility] Start: 01-29-2023 End: 01-30-2023 Emergency department patient visit Dr. Lizet Linares Work Phone: [facility] Start: 01-29-2023 End: 01-30-2023 Dr. Lizet Linares Work Phone: [facility] Start: 01-26-2023 End: 01-26-[address] Lizet Linares Work Phone: [facility] Work Phone: Start: 01-26-2023 End: 01-26-[address] Lizet Linares Work Phone: [facility] Start: 01-26-2023 End: 01-26-2023 Dr. Lizet Linares Work Phone: [facility] Start: 01-19-2023 End: 01-19-[address] Lizet Linares Work Phone: [facility] Work Phone: Start: 01-19-2023 End: 01-19-[address] Lizet Linares Work Phone: [facility] Start: 01-19-[address] Shadia Linares Work Phone: [facility] Start: 01-19-2023 End: 01-19-2023 Dr. Lizet Linares Work Phone: [facility] Start: 01-18-2023 End: 01-18-[address] Lizet Linares Work Phone: [facility] Work Phone: Start: 01-18-2023 End: 01-18-[address] Lizet Linares Work Phone: [facility] Start: 01-18-2023 End: 01-18-2023 Dr. Lizet Linares Work Phone: [facility] Start: 01-08-2023 End: 01-08-[address] Lizet Linares Work Phone: [facility] Start: 01-08-2023 End: 01-08-2023 Dr. Lizet Linares Work Phone: [facility] Start: 01-07-2023 End: 01-07-[address] Lizet Linares Work Phone: [facility] Start: 01-07-2023 End: 01-07-2023 Dr. Lizet Linares Work Phone: [facility] Start: 01-07-2023 End: 01-07-2023 Emergency department patient visit Dr. Ganesh Garcia Work Phone: [facility] Work Phone: Start: 01-07-2023 End: 01-07-2023 Dr. Ganesh Garcia Work Phone: [facility] Start: 01-06-2023 End: 01-06-2023 Emergency department patient visit Dr. Ganesh Garcia Work Phone: [facility] Work Phone: Start: 01-06-2023 End: 01-06-2023 Dr. Ganesh Garcia Work Phone: [facility] Start: 01-05-2023 End: 01-05-[address] Lizet Linares Work Phone: [facility] Start: 01-05-2023 End: 01-05-[address] Lizet Linares Work Phone: [facility] Work Phone: Start: 01-05-2023 End: 01-05-[address] Lizet Linares Work Phone: [facility] Start: 01-05-2023 End: 01-05-2023 Dr. Ganesh Garcia Work Phone: [facility] Start: 01-04-2023 End: 01-04-[address] Lizet Linares Work Phone: [facility] Start: 01-04-2023 End: 01-04-2023 Dr. Lizet Linares Work Phone: [facility] Start: 01-01-2023 ambulatory Donnell Burr [facility] Work Phone: [id number] Comment on above: Medication Update (S tatin use review ) Start: 12-28-2022 End: 12-28-[address] Lizet Linares Work Phone: [facility] Work Phone: Start: 12-28-2022 End: 12-28-[address] Lizet Linares Work Phone: [facility] Start: 12-28-2022 End: 12-28-2022 Dr. Ganesh Garcia Work Phone: [facility] Start: 12-24-2022 End: 12-24-[address] Lizet Linares Work Phone: [facility] Start: 12-24-2022 End: 12-24-2022 Dr. Lizet Linares Work Phone: [facility] Start: 12-23-2022 End: 12-23-[address] Lizet Linares Work Phone: [facility] Work Phone: Start: 12-23-2022 End: 12-23-[address] Lizet Linares Work Phone: [facility] Start: 12-23-2022 End: 12-23-2022 Dr. Ganesh Garcia Work Phone: [facility] Start: 12-22-2022 End: 12-22-[address] Lizet Linares Work Phone: [facility] Work Phone: Start: 12-22-2022 End: 12-22-[address] Lizet Linares Work Phone: [facility] Start: 12-22-2022 End: 12-22-2022 Dr. Ganesh Garcia Work Phone: [facility] Start: 12-21-2022 End: 12-21-[address] Lizet Linares Work Phone: [facility] Start: 12-21-2022 End: 12-21-2022 Dr. Ganesh Garcia Work Phone: [facility] Start: 12-14-2022 End: 12-14-[address] Lizet Linares Work Phone: [facility] Work Phone: Start: 12-14-2022 End: 12-14-[address] Lizet Linares Work Phone: [facility] Start: 12-14-2022 End: 12-14-2022 Dr. Ganesh Garcia Work Phone: [facility] Start: 12-09-2022 Non-patient / Non-visit Dr. Barbara Garcia Work Phone: [facility] Start: 12-09-2022 Dr. Ganesh butler Work Phone: [facility] Start: 12-08-2022 End: 12-08-[address] Lizet Linares Work Phone: [facility] Start: 12-08-2022 End: 12-08-[address] Lizet Linares Work Phone: [facility] Start: 12-08-[address] Ganesh horne Work Phone: [facility] Start: 12-08-2022 End: 12-08-2022 Dr. Ganesh Garcia Work Phone: [facility] Start: 11-24-2022 End: 11-24-[address] Ganesh Garcia Work Phone: [facility] Work Phone: Start: 11-24-2022 End: 11-24-[address] Ganesh Garcia Work Phone: [phone] [place] [address] Start: 11-24-2022 End: 11-24-2022 Dr. Ganesh Garcia Work Phone: [phone] [place] [address] Start: 11-10-2022 End: 11-10-[address] Ganesh Garcia Work Phone: [facility] Start: 11-10-2022 End: 11-10-2022 Dr. Ganesh Garcia Work Phone: [facility] Start: 11-10-2022 End: 11-10-[address] Ganesh Garcia Work Phone: [facility] Work Phone: Start: 11-10-2022 End: 11-10-[address] Ganesh Garcia Work Phone: [facility] Start: 11-10-[address] Ganesh horne Work Phone: [facility] Start: 11-10-2022 End: 11-10-2022 Dr. Ganesh Garcia Work Phone: [facility] Start: 11-09-2022 End: 11-09-[address] Ganesh Garcia Work Phone: [facility] Start: 11-09-2022 End: 11-09-2022 Dr. Ganesh Garcia Work Phone: [facility] Start: 11-05-2022 End: 11-05-[address] Ganesh Garcia Work Phone: [facility] Start: 11-05-2022 End: 11-05-2022 Dr. Ganesh Garcia Work Phone: [facility] Start: 11-05-2022 End: 11-05-2022 Emergency department patient visit Dr. Ganesh Garcia Work Phone: [facility] Start: 11-05-2022 End: 11-05-2022 Dr. Ganesh Garcia Work Phone: [facility] Start: 10-30-2022 End: 10-30-[address] Ganesh Garcia Work Phone: [facility] Work Phone: Start: 10-30-2022 End: 10-30-[address] Ganesh Garcia Work Phone: [phone] [place] [address] Start: 10-30-[address] Ganesh horne Work Phone: [facility] Start: 10-30-2022 End: 10-30-2022 Dr. Ganesh Garcia Work Phone: [facility] Start: 10-28-2022 End: 10-28-[address] Ganesh Garcia Work Phone: [facility] Start: 10-28-2022 End: 10-28-2022 Dr. Ganesh Garcia Work Phone: [facility] Start: 10-27-2022 End: 10-27-[address] Ganesh Garcia Work Phone: [facility] Work Phone: Start: 10-27-2022 End: 10-27-[address] Ganesh Garcia Work Phone: [facility] Start: 10-27-[address] Ganesh horne Work Phone: [phone] [place] [address] Start: 10-27-2022 End: 10-27-2022 Dr. Ganesh Garcia Work Phone: [facility] Start: 10-21-2022 End: 10-21-[address] Ganesh Garcia Work Phone: [facility] Start: 10-21-2022 End: 10-21-2022 Dr. Ganesh Garcia Work Phone: [phone] [place] [address] Start: 10-13-2022 End: 10-13-[address] Ganesh Garcia Work Phone: [phone] [place] [address] Work Phone: Start: 10-13-2022 End: 10-13-[address] Ganesh Garcia Work Phone: [facility] Start: 10-13-[address] Ganesh horne Work Phone: [facility] Start: 10-13-2022 End: 10-13-2022 Dr. Ganesh Garcia Work Phone: [facility] Start: 10-12-2022 End: 10-12-[address] Ganesh Garcia Work Phone: [facility] Start: 10-12-2022 End: 10-12-2022 Dr. Ganesh Garcia Work Phone: [facility] Start: 10-09-2022 End: 10-09-2022 Emergency department patient visit Dr. Ganesh Garcia Work Phone: [facility] Start: 10-09-2022 End: 10-09-2022 Dr. Ganesh Garcia Work Phone: [facility] Start: 09-29-2022 End: 09-29-[address] Ganesh Garcia Work Phone: [phone] [place] [address] Start: 09-29-[address] Ganesh horne Work Phone: [phone] [place] [address] Start: 09-29-2022 End: 09-29-2022 Dr. Ganesh Garcia Work Phone: [phone] [place] [address] Start: 09-15-2022 End: 09-15-[address] Ganesh Garcia Work Phone: [phone] [place] [address] Work Phone: Start: 09-15-2022 End: 09-15-[address] Ganesh Garcia Work Phone: [phone] [place] [address] Start: 09-15-[address] Ganesh horne Work Phone: [phone] [place] [address] Start: 09-15-2022 End: 09-15-2022 Dr. Ganesh Garcia Work Phone: [phone] [address] Start: 09-11-2022 End: 09-11-[address] Ganesh Garcia Work Phone: [phone] [place] [address] Work Phone: Start: 09-11-2022 End: 09-11-[address] Ganesh Garcia Work Phone: [phone] [place] [address] Start: 09-11-[address] Ganesh horne Work Phone: [phone] [place] [address] Start: 09-11-2022 End: 09-11-2022 Dr. Ganesh Garcia Work Phone: [phone] [place] [address] Start: 09-09-2022 End: 09-09-[address] Ganesh Garcia Work Phone: [facility] Start: 09-09-2022 End: 09-09-2022 Dr. Ganesh Garcia Work Phone: [facility] Start: 09-01-2022 End: 09-01-[address] Ganesh Garcia Work Phone: [facility] Start: 09-01-2022 End: 09-01-[address] Ganehs Garcia Work Phone: [facility] Work Phone: Start: 09-01-2022 End: 09-01-[address] Ganesh Garcia Work Phone: [facility] Start: 08-24-2022 End: 08-24-[address] Ganesh Garcia Work Phone: [facility] Start: 08-24-2022 End: 08-24-2022 Emergency department patient visit Dr. Ganesh Garcia Work Phone: [facility] Start: 08-18-2022 End: 08-18-[address] Ganesh Garcia Work Phone: [facility] Work Phone: Start: 08-18-2022 End: 08-18-[address] Ganesh Garcia Work Phone: [facility] Start: 08-18-[address] Luis Carlos Lopez Work Phone: [facility] Start: 08-04-2022 End: 08-04-[address] Jarred Lopez Work Phone: [facility] Work Phone: Start: 08-04-2022 End: 08-04-[address] Jarred Lopez Work Phone: [facility] Start: 08-04-[address] Luis Carlos Lopez Work Phone: [facility] Start: 07-20-2022 End: 07-20-[address] Jarred Lopez Work Phone: [facility] Work Phone: Start: 07-20-2022 End: 07-20-[address] Jarred Lopez Work Phone: [facility] Start: 07-20-[address] Luis Carlos Lopez Work Phone: [facility] Start: 07-13-2022 End: 07-13-[address] Ganesh Garcia Work Phone: [facility] Start: 07-13-[address] Luis Carlos Lopez Work Phone: [facility] Start: 07-07-2022 End: 07-07-[address] Jarred Lopez Work Phone: [facility] Start: 07-07-[address] Luis Carlos Lopez Work Phone: [facility] Start: 07-03-2022 End: 07-03-[address] Jarred Lopez Work Phone: [facility] Work Phone: Start: 07-03-2022 End: 07-03-[address] Jarred Lopez Work Phone: [facility] Start: 07-03-[address] Luis Carlos Lopez Work Phone: [facility] Start: 07-02-2022 Non-patient / Non-visit Dr. Adriana Lopez Work Phone: [facility] Start: 07-02-2022 End: 07-02-[address] Jarred Lopez Work Phone: [facility] Start: 07-01-2022 End: 07-01-[address] Jarred Lopez Work Phone: [facility] Work Phone: Start: 07-01-2022 End: 07-01-[address] Jarred Lopez Work Phone: [facility] Start: 07-01-[address] Luis Carlos Lopez Work Phone: [facility] Start: 06-23-2022 End: 06-23-[address] Jarred Lopez Work Phone: [facility] Work Phone: Start: 06-23-2022 End: 06-23-[address] Jarred Lopez Work Phone: [facility] Start: 06-12-2022 End: 06-12-[address] Jarred Lopez Work Phone: [facility] Work Phone: Start: 06-12-2022 End: 06-12-[address] Jarred Lopez Work Phone: [facility] Start: 06-12-2022 End: 06-12-[address] Jarred Lopez Work Phone: [facility] Start: 06-09-2022 Non-patient / Non-visit Dr. Adriana Lopez Work Phone: [facility] Start: 06-09-2022 End: 06-09-[address] Jarred Lopez Work Phone: [facility] Start: 06-09-[address] Luis Carlos Lopez Work Phone: [facility] Start: 05-26-[address] Luis Carlos Lopez Work Phone: [facility] Start: 05-21-2022 Non-patient / Non-visit Dr. Adriana Lopez Work Phone: [facility] Start: 05-21-2022 End: 05-21-2022 Evaluation and management of inpatient Dr. Jarred Lopez Work Phone: [facility] Start: 05-20-2022 End: 05-20-[address] Jarred Lopez Work Phone: [facility] Start: 05-20-[address] Luis Carlos Lopez Work Phone: [facility] Start: 05-12-2022 End: 05-12-[address] Jarred Lopez Work Phone: [facility] Start: 05-12-[address] Luis Carlos Lopez Work Phone: [facility] Start: 05-04-2022 End: 05-04-[address] Jarred Lopez Work Phone: [facility] Start: 05-03-2022 End: 05-04-2022 Emergency department patient visit Dr. Jarred Lopez Work Phone: [facility] Start: 05-03-2022 End: 05-04-2022 Non-patient / Non-visit Dr. Jarred Lopez Work Phone: [facility] Start: 04-28-2022 End: 04-28-[address] Jarred Lopez Work Phone: [facility] Start: 04-28-2022 End: 04-28-[address] Jarred Lopez Work Phone: [facility] Start: 04-28-[address] Luis Carlos Lopez Work Phone: [facility] Start: 04-25-2022 Non-patient / Non-visit Dr. Adriana Lopez Work Phone: [facility] Start: 04-25-2022 Non-patient / Non-visit Dr. Adriana Lopez Work Phone: [facility] Start: 04-24-2022 Non-patient / Non-visit Dr. Adriana Lopez Work Phone: [facility] Start: 04-24-2022 End: 04-25-2022 Evaluation and management of inpatient Dr. Jarred Lopez Work Phone: [facility] Start: 04-17-2022 End: 04-17-[address] Jarred Lopez Work Phone: [facility] Start: 04-17-[address] Luis Carlos Lopez Work Phone: [facility] Start: 04-13-2022 End: 04-13-[address] Jarred Lopez Work Phone: [facility] Start: 04-13-[address] Luis Carlos Lopez Work Phone: [facility] Start: 04-06-2022 End: 04-06-[address] Jarred Lopez Work Phone: [facility] Start: 04-03-2022 [facility] Comment on above: Population Health Na vigation Outreach (HCC) Start: 03-30-2022 Non-patient / Non-visit Dr. Adriana Lopez Work Phone: [facility] Start: 03-29-2022 Non-patient / Non-visit Dr. Adriana Lopez Work Phone: [facility] Start: 03-28-2022 Non-patient / Non-visit Dr. Adriana Lopez Work Phone: [facility] Start: 03-27-2022 Non-patient / Non-visit Dr. Adriana Lopez Work Phone: [facility] Start: 03-26-2022 Non-patient / Non-visit Dr. Adriana Lopez Work Phone: [facility] Start: 03-25-2022 Non-patient / Non-visit Dr. Adriana Lopez Work Phone: [facility] Start: 03-24-2022 Non-patient / Non-visit Dr. Adriana Lopez Work Phone: [facility] Start: 03-23-2022 Non-patient / Non-visit Dr. Ardiana Lopez Work Phone: [facility] Start: 03-22-2022 Non-patient / Non-visit Dr. Adriana Lopez Work Phone: [facility] Start: 03-21-2022 Non-patient / Non-visit Dr. Adriana Lopez Work Phone: [facility] Start: 03-20-2022 Non-patient / Non-visit Dr. Adriana Lopez Work Phone: [facility] Start: 03-20-2022 End: 03-30-2022 Evaluation and management of inpatient Dr. Jarred Lopez Work Phone: [facility] Start: 02-24-2022 End: 02-24-2022 Emergency department patient visit [facility] Start: 01-13-2022 End: 01-13-2022 Emergency department patient visit [facility] Start: 09-27-2021 End: 09-27-2021 Emergency department patient visit [facility] Start: 09-29-2018 Patient encounter procedure Tj L Calixto Facility:[facility] Start: 08-03-2018 Patient encounter procedure Tj L Calixto Facility:[facility] Start: 06-01-2018 Patient encounter procedure Tj L Calixto Facility:[facility] Start: 03-08-2018 Ambulatory SIXTO CALIXTO Facility :[facility] Start: 02-22-2018 Patient encounter procedure Tj L Calixto Facility:[facility] Start: 11-30-2017 Patient encounter procedure Tj L Calixto Facility:[facility] Start: 12-10-2008 End: 06-03-2015 Patient encounter status Annabel Agrawal MA [facility] Work Phone: Procedures Date Procedure Procedure Detail [...] Phone: Start: 06-01-[address] Junie iLnares MD Work Phone: Start: 06-01-2025 Nucleated red [...] Detail Author Start: 06-09-2031 Urine microalbumin profile [facility] Start: 06-25-2025 Influenza vaccination Influenza Vaccine (Season Ended) [facility] Start: 06-01-2025 Patient discharge [facility] Start: 05-30-2025 Referral to general surgeon [facility] Start: 05-29-2025 [facility] Start: 05-29-2025 Consultation [facility] Start: 05-29-2025 Complete blood count [facility] Start: 05-28-2025 Following clinical pathway protocol [facility] Start: 05-28-2025 Bacteria identified in Blood by Culture Blood Culture [facility] Start: 05-28-2025 Blood culture [facility] Start: 05-28-2025 Following clinical pathway protocol [facility] Start: 05-28-2025 Ambulation without limitation [facility] Start: 05-28-2025 Assessment of risk of venous thromboembolism [facility] Start: 05-28-2025 Care regimes management [facility] Start: 05-28-2025 Incentive spirometry [facility] Start: 05-28-2025 Insertion of catheter into peripheral vein [facility] Start: 05-28-2025 Notification of physician [facility] Start: 05-28-2025 Oxygen therapy [facility] Start: 05-28-2025 Providing care according to standard [facility] Start: 05-28-2025 Referral to service [facility] Start: 05-28-2025 End: 05-28-2025 [facility] Start: 05-28-2025 Verification routine [facility] Start: 05-28-2025 Admission procedure [facility] Start: 05-28-2025 [facility] Start: 05-28-2025 Patient referral to dietitian [facility] Start: 05-26-2025 Emergency dept visit high severity&threat funcj [facility] Start: 05-26-2025 Intravenous infusion [facility] Start: 05-26-2025 Iv infusion therapy/prophylaxis /dx 1st to 1 hr [facility] Start: 05-26-2025 Therapeutic injection iv push each new drug [facility] Start: 05-26-2025 Vedolizumab therapy [facility] Start: 05-26-2025 [facility] Start: 05-26-2025 Following clinical pathway protocol [facility] Start: 01-22-2025 [facility] Start: 01-22-2025 [facility] Start: 10-25-2024 Medicare Advantage Annual Wellness Visit Medicare Advantage Annual Wellness Visit [facility] Start: 10-24-2024 [facility] Start: 06-25-2024 Covid-19 Vaccine () Covid-19 Vaccine () [facility] Start: 06-25-2024 Influenza vaccination [facility] Start: 04-18-2024 End: 04-18-2024 Patient encounter procedure 04/18/2024 12:20 PM EDT Office Visit [facility] [address] [place] [address] 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 [address] [place] [address] Yearly Exam [facility] Comment on above: Yearly Exam Start: 04-07-2024 3 comp foot exam completed DIABETIC FOOT EXAM [facility] Start: 04-07-2024 ANNUAL PCP TEAM CHRONIC DISEASE VISIT ANNUAL PCP TEAM CHRONIC DISEASE VISIT [facility] Start: 04-07-2024 COVID-19 VACCINE (4 - Booster for Pfizer series) COVID-19 VACCINE (4 - Booster for Pfizer series) [facility] Comment on above: Postponed from 07/28/2022 (Declined at t his time) Start: 04-07-2024 COVID-19 VACCINE (4 - Pfizer series) COVID-19 VACCINE (4 - Pfizer series) [facility] Comment on above: Postponed from 07/28/2022 (Declined at t his time) Start: 04-07-2024 Diabetic foot examination Diabetic Foot Exam [facility] Start: 04-07-2024 SHINGRIX VACCINE (1 of 2) SHINGRIX VACCINE (1 of 2) Britney Thomas Comment on above: Postponed from 2013 (Declined at t his time) Start: 03-30-2024 End: 03-30-2024 Patient encounter procedure 03/30/2024 12:40 PM EDT Office Visit [facility] [address] [place] [address] Dwayne Lopez MD [address] [place] [address] ER follow up; [facility] 03/24/2024 head injury-PCP has ER summary on desk [facility] Comment on above: ER follow up; [facility] 03/24/2024 head injury- PCP has ER summary on desk Start: 03-24-2024 ANNUAL PCP TEAM CHRONIC DISEASE VISIT ANNUAL PCP TEAM CHRONIC DISEASE VISIT [facility] Start: 02-25-2024 End: 02-25-2024 Blood chemistry [facility] Start: 02-25-2024 End: 02-25-2024 Thyroid stimulating hormone measurement [facility] Start: 02-25-2024 End: 02-25-2024 [facility] Start: 01-20-2024 End: 01-20-2024 [facility] Start: 01-20-2024 [facility] Start: 01-17-2024 Urine culture [facility] Start: 01-17-2024 [facility] Start: 01-05-2024 Patient discharge [facility] Start: 01-01-2024 End: 01-01-2024 Following clinical pathway protocol [facility] Start: 01-01-2024 Assessment of risk of venous thromboembolism [facility] Start: 01-01-2024 Care regimes management [facility] Start: 01-01-2024 Fall prevention [facility] Start: 01-01-2024 Inhalation therapy procedure [facility] Start: 01-01-2024 Insertion of catheter into peripheral vein [facility] Start: 01-01-2024 Introduction of urinary catheter [facility] Start: 01-01-2024 Measuring intake and output [facility] Start: 01-01-2024 Notification of physician [facility] Start: 01-01-2024 Oxygen therapy [facility] Start: 01-01-2024 Providing care according to standard [facility] Start: 01-01-2024 Provision of activity privileges [facility] Start: 01-01-2024 Referral to occupational therapist [facility] Start: 01-01-2024 Referral to service [facility] Start: 01-01-2024 [facility] Start: 01-01-2024 Verification routine [facility] Start: 01-01-2024 Admission procedure [facility] Start: 01-01-2024 Hospital admission, emergency, from emergency room, medical nature [facility] Start: 01-01-2024 Patient referral to dietitian [facility] Start: 11-24-2023 Patient discharge [facility] Start: 11-22-2023 [facility] Start: 11-22-2023 Blood chemistry [facility] Start: 11-21-2023 Blood chemistry [facility] Start: 11-21-2023 [facility] Start: 11-20-2023 Blood chemistry [facility] Start: 11-19-2023 End: 11-19-2023 [facility] Start: 11-19-2023 Following clinical pathway protocol [facility] Start: 11-19-2023 Ambulation without limitation [facility] Start: 11-19-2023 Assessment of risk of venous thromboembolism [facility] Start: 11-19-2023 Care regimes management [facility] Start: 11-19-2023 Incentive spirometry [facility] Start: 11-19-2023 Insertion of catheter into peripheral vein [facility] Start: 11-19-2023 Measuring intake and output [facility] Start: 11-19-2023 Notification of physician [facility] Start: 11-19-2023 Providing care according to standard [facility] Start: 11-19-2023 Provision of activity privileges [facility] Start: 11-19-2023 Referral to occupational therapist [facility] Start: 11-19-2023 Referral to service [facility] Start: 01-26-2024 Verification routine [facility] Start: 11-19-2023 Admission procedure [facility] Start: 11-19-2023 Enteric precautions [facility] Start: 11-19-2023 Measurement of occult blood in stool specimen using immunoassay [facility] Start: 11-19-2023 Patient referral to dietitian [facility] Start: 10-25-2023 Behavioral Health Screening Behavioral Health Screening [facility] Start: 10-25-2023 Depression Assessment Depression Assessment [facility] Start: 2023 Hepatitis B Vaccine (1 of 3 - Risk 3-dose series) Hepatitis B Vaccine (1 of 3 - Risk 3-dose series) [facility] Start: 2023 RSV Vaccine (1 - 1-dose 60+ series) RSV Vaccine (1 - 1-dose 60+ series) [facility] Start: 2023 RSV Vaccine (1 - Risk 60-74 years 1-dose series) RSV Vaccine (1 - Risk 60-74 years 1-dose series) [facility] Start: 06-25-2023 Covid-19 Vaccine (2022- season) Covid-19 Vaccine (2022- season) [facility] Start: 06-25-2023 Influenza vaccination [facility] Start: 04-07-2023 End: 06-07-2023 ALBUMIN/CREAT RATIO RND UR ALBUMIN/CREAT RATIO RND UR Lab Routine Diabetes mellitus type 2 with neurological manifestations (HCC) Expected: 04/07/2023, Expires: 06/07/2023 [facility] Work Phone: Comment on above: Expected: 04/07/2023, Expires: 3 Start: 04-07-2023 End: 06-07-2023 CBC W Auto Differential panel - Blood CBC + DIFF Lab Routine Diabetes mellitus type 2 with neurological manifestations (HCC) Expected: 04/07/2023, Expires: 06/07/2023 [facility] Work Phone: Comment on above: Expected: 04/07/2023, Expires: 3 Start: 04-07-2023 End: 06-07-2023 Comprehensive metabolic 2000 panel - Serum or Plasma COMP METABOLIC PANEL Lab Routine Diabetes mellitus type 2 with neurological manifestations (HCC) Expected: 04/07/2023, Expires: 06/07/2023 [facility] Work Phone: Comment on above: Expected: 04/07/2023, Expires: 3 Start: 04-07-2023 End: 06-07-2023 Hemoglobin A1c in Blood HGB A1C Lab Routine Diabetes mellitus type 2 with neurological manifestations (HCC) Expected: 04/07/2023, Expires: 06/07/2023 [facility] Work Phone: Comment on above: Expected: 04/07/2023, Expires: 3 Start: 04-07-2023 End: 06-07-2023 Hepatic function 2000 panel - Serum or Plasma HEPATIC FUNCTION PNL Lab Routine Onychomycosis Expected: 04/07/2023, Expires: 06/07/2023 [facility] Work Phone: Comment on above: Expected: 04/07/2023, Expires: 3 Start: 04-07-2023 End: 06-07-2023 LIPID PANEL, NONFASTING LIPID PANEL, NONFASTING Lab Routine Diabetes mellitus type 2 with neurological manifestations (HCC) Expected: 04/07/2023, Expires: 06/07/2023 [facility] Work Phone: Comment on above: Expected: 04/07/2023, Expires: 3 Start: 04-07-2023 End: 06-07-2023 Thyrotropin [Units/volume] in Serum or Plasma TSH BLD Lab Routine Acquired hypothyroidism Expected: 04/07/2023, Expires: 06/07/2023 [facility] Work Phone: Comment on above: Expected: 04/07/2023, Expires: 3 Start: 01-29-2023 [facility] Start: 11-05-2022 [facility] Start: 10-25-2022 DEPRESSION ASSESSMENT DEPRESSION ASSESSMENT [facility] Start: 10-09-2022 [facility] Work Phone: Start: 08-24-2022 [facility] Start: 07-28-2022 COVID-19 VACCINE (4 - Booster for Pfizer series) COVID-19 VACCINE (4 - Booster for Pfizer series) [facility] Start: 07-13-2022 [facility] Work Phone: Start: 06-25-2022 Influenza vaccination [facility] Start: 05-22-2022 Blood chemistry [facility] Work Phone: Start: 05-22-2022 Complete blood count [facility] Work Phone: Start: 05-22-2022 Partial thromboplastin time, activated [facility] Work Phone: Start: 05-22-2022 Prothrombin time [facility] Work Phone: Start: 05-21-2022 Notification of physician [facility] Work Phone: Start: 05-21-2022 Patient discharge [facility] Work Phone: Start: 05-21-2022 Provision of activity privileges [facility] Work Phone: Start: 05-21-2022 Scheduling [facility] Work Phone: Start: 05-21-2022 Taking patient vital signs [facility] Work Phone: Start: 05-21-2022 Vascular disease risk assessment [facility] Work Phone: Start: 05-21-2022 [facility] Work Phone: Start: 05-21-2022 Referral to occupational therapist [facility] Work Phone: Start: 05-21-2022 Referral to service [facility] Work Phone: Start: 05-21-2022 Catheterization of vein [facility] Work Phone: Start: 05-21-2022 Medication not administered [facility] Work Phone: Start: 05-21-2022 [facility] Work Phone: Start: 05-21-2022 Application of intermittent pneumatic compression device [facility] Work Phone: Start: 05-21-2022 Following clinical pathway protocol [facility] Work Phone: Start: 05-21-2022 Assessment of risk of venous thromboembolism [facility] Work Phone: Start: 05-21-2022 Care regimes management [facility] Work Phone: Start: 05-21-2022 Insertion of catheter into peripheral vein [facility] Work Phone: Start: 05-21-2022 Introduction of urinary catheter [facility] Work Phone: Start: 05-21-2022 Measuring intake and output [facility] Work Phone: Start: 05-21-2022 Oxygen therapy [facility] Work Phone: Start: 05-21-2022 Providing care according to standard [facility] Work Phone: Start: 05-21-2022 Provision of activity privileges [facility] Work Phone: Start: 05-21-2022 Referral to merchandise manager [facility] Work Phone: Start: 05-21-2022 Referral to service [facility] Work Phone: Start: 05-21-2022 [facility] Work Phone: Start: 05-21-2022 Verification routine [facility] Work Phone: Start: 05-21-2022 Admission procedure [facility] Work Phone: Start: 05-03-2022 [facility] Work Phone: Start: 04-25-2022 Patient discharge [facility] Work Phone: Start: 04-24-2022 Ambulation without limitation [facility] Work Phone: Start: 04-24-2022 Assessment of risk of venous thromboembolism [facility] Work Phone: Start: 04-24-2022 Care regimes management [facility] Work Phone: Start: 04-24-2022 Catheterization of vein [facility] Work Phone: Start: 04-24-2022 Insertion of catheter into peripheral vein [facility] Work Phone: Start: 04-24-2022 Measuring intake and output [facility] Work Phone: Start: 04-24-2022 Oxygen therapy [facility] Work Phone: Start: 04-24-2022 Providing care according to standard [facility] Work Phone: Start: 04-24-2022 Referral to service [facility] Work Phone: Start: 04-24-2022 [facility] Work Phone: Start: 04-24-2022 Following clinical pathway protocol [facility] Work Phone: Start: 04-24-2022 Admission procedure [facility] Work Phone: Start: 03-30-2022 Patient discharge [facility] Work Phone: Start: 03-30-2022 [facility] Work Phone: Start: 03-25-2022 Oxygen therapy [facility] Work Phone: Start: 03-20-2022 Assessment of risk of venous thromboembolism [facility] Work Phone: Start: 03-20-2022 Catheterization of vein [facility] Work Phone: Start: 03-20-2022 Insertion of catheter into peripheral vein [facility] Work Phone: Start: 03-20-2022 Measuring intake and output [facility] Work Phone: Start: 03-20-2022 Providing care according to standard [facility] Work Phone: Start: 03-20-2022 Provision of activity privileges [facility] Work Phone: Start: 03-20-2022 Referral to occupational therapist [facility] Work Phone: Start: 03-20-2022 Referral to service [facility] Work Phone: Start: 03-20-2022 [facility] Work Phone: Start: 03-20-2022 Following clinical pathway protocol [facility] Work Phone: Start: 03-20-2022 Admission procedure [facility] Work Phone: Start: 01-13-2022 Bacteria identified in Urine by Culture Urine Culture [facility] Work Phone: Start: 07-21-2021 COVID-19 VACCINE (3 - Booster for Pfizer series) COVID-19 VACCINE (3 - Booster for Pfizer series) [facility] Start: 04-15-2021 COVID-19 VACCINE (3 - Booster for Pfizer series) COVID-19 VACCINE (3 - Booster for Pfizer series) [facility] Start: 03-25-2021 Glaucoma screening Dilated Retinal Exam [facility] Start: 03-25-2021 Hepatitis C antibody, confirmatory test DILATED RETINAL EXAM [facility] Start: 01-24-2021 ANNUAL PCP TEAM CHRONIC DISEASE VISIT ANNUAL PCP TEAM CHRONIC DISEASE VISIT [facility] Start: 12-25-2020 Hepatitis B screening URINE ALBUMIN:CREATININE RATIO [facility] Start: 10-27-2020 COLORECTAL CANCER SCREENING COLORECTAL CANCER SCREENING [facility] Start: 10-27-2020 FECAL OCCULT BLOOD FECAL OCCULT BLOOD [facility] Start: 10-27-2020 Screening for malignant neoplasm of colon [facility] Start: 10-26-2020 Creatinine measurement Serum Creatinine [facility] Start: 10-26-2020 SERUM CREATININE SERUM CREATININE [facility] Start: 09-18-2020 Hepatitis B surface antibody level LDL CHOLESTEROL [facility] Start: 09-04-2020 Complete blood count Hemoglobin/Hematocrit [facility] Start: 02-22-2020 Hemoglobin A1c measurement HbA1C [facility] Start: 02-22-2020 Hemoglobin A1c/Hemoglobin.total in Blood HBA1C [facility] Start: 07-04-2019 PNEUMOCOCCAL (2 - PCV) PNEUMOCOCCAL (2 - PCV) [facility] Start: 06-21-2018 3 comp foot exam completed DIABETIC FOOT EXAM [facility] Start: 06-21-2018 Adult depression screening assessment DEPRESSION SCREENING [facility] Start: 01-22-2018 Mammography [facility] Start: 01-22-2018 Screening for malignant neoplasm of breast Mammogram Screening [facility] Start: 07-28-2017 End: 07-28-2017 Appointment [facility] Work Phone: Start: 2013 SHINGRIX VACCINE (1 of 2) SHINGRIX VACCINE (1 of 2) [facility] Start: 08-14-2010 End: 08-14-2010 Follow Up Appt 1 month Follow Up Appt 1 month [facility] Work Phone: Start: 08-14-2010 End: 08-14-2010 Iiv3 vaccine split virus 0.5 ml dosage im use Flu vaccine > age 3 yr (with preservative) [facility] Work Phone: Start: 03-10-2010 End: 08-11-2010 Blood count complete automated *CBC without Diff [facility] Work Phone: Start: 03-10-2010 End: 08-11-2010 Comprehensive metabolic panel *CMP Complete Metabolic Panel [facility] Work Phone: Start: 03-10-2010 End: 03-10-2010 Follow Up Appt 2 weeks Follow Up Appt 2 weeks [facility] Work Phone: Start: 03-10-2010 End: 11-19-2014 Gastroenterology Referral Gastroenterology Referral Kristopher Welshtemi, [address], [address], [place], [address] [facility] Work Phone: Start: 03-10-2010 End: 08-11-2010 Hemoglobin A1c/Hemoglobin.total mass fraction (Bld) *HgA1C [facility] Work Phone: Start: 03-10-2010 End: 08-11-2010 Protein mass conc *Lipid Profile [facility] Work Phone: Start: 03-10-2010 End: 08-11-2010 Thyrotropin Qn *TSH [facility] Work Phone: Start: 03-10-2010 End: 08-11-2010 Urinls dip stick/tablet reagnt non-auto micrscpy *Urinalysis [facility] Work Phone: Start: 2008 COLOGUARD (FIT-DNA) COLOGUARD (FIT-DNA) [facility] Start: 2008 Colonoscopy COLONOSCOPY [facility] Start: [address] COLONOGRAPHY [facility] Start: 2008 Screening for malignant neoplasm of colon [facility] Start: 2008 SIGMOIDOSCOPY SIGMOIDOSCOPY [facility] Start: 1982 HEPATITIS B (1 of 3 - Risk 3-dose series) HEPATITIS B (1 of 3 - Risk 3-dose series) [facility] Start: 1981 Anxiety Screening Anxiety Screening [facility] Start: 1981 Depression Screening Depression Screening [facility] Alanine aminotransfe rase [Enzymatic activity/volume] in Serum or Plasma [facility] Work Phone: Alanine aminotransfe rase [Enzymatic activity/volume] in Serum or Plasma [facility] Alanine aminotransfe rase [Enzymatic activity/volume] in Serum or Plasma [facility] Albumin [Mass/volume ] in Serum or Plasma [facility] Work Phone: Albumin [Mass/volume ] in Serum or Plasma [facility] Albumin [Mass/volume ] in Serum or Plasma [facility] Alkaline phosphatase [Enzymatic activity/volume] in Serum or Plasma [facility] Work Phone: Alkaline phosphatase [Enzymatic activity/volume] in Serum or Plasma [facility] Alkaline phosphatase [Enzymatic activity/volume] in Serum or Plasma [facility] Anion gap in Serum o r Plasma [facility] Anion gap measurement [facility] [...] aminotransferase [Enzymatic activity/volume] in Serum or Plasma [facility] Work Phone: Aspartate aminotransferase [Enzymatic activity/volume] in Serum or Plasma [facility] Aspartate aminotransferase [Enzymatic activity/volume] in Serum or Plasma [facility] Bacteria identified in Urine by Culture Urine Culture [facility] Work Phone: Bilirubin measuremen t, urine [facility] Bilirubin, total measurement [facility] Work Phone: Bilirubin, total measurement [facility] Bilirubin, total measurement [facility] Bilirubin.direct [Mass/volume] in Serum or Plasma [facility] BUN/Creatinine ratio [facility] Work Phone: BUN/Creatinine ratio [facility] BUN/Creatinine ratio [facility] BUN/Creatinine ratio [facility] BUN/Creatinine ratio [facility] BUN/Creatinine ratio [facility] BUN/Creatinine ratio [facility] Calcium [Mass/volume ] in Serum or Plasma [facility] Work Phone: Calcium [Mass/volume ] in Serum or Plasma [facility] Calcium [Mass/volume ] in Serum or Plasma [facility] Calcium [Mass/volume ] in Serum or Plasma [facility] Calcium [Mass/volume ] in Serum or Plasma [facility] Calcium [Mass/volume ] in Serum or Plasma [facility] Calcium [Mass/volume ] in Serum or Plasma [facility] Carbon dioxide, tota l [Moles/volume] in Central venous blood [facility] Carbon dioxide, tota l [Moles/volume] in Serum or Plasma [facility] Work Phone: Carbon dioxide, tota l [Moles/volume] in Serum or Plasma [facility] Carbon dioxide, tota l [Moles/volume] in Serum or Plasma [facility] Carbon dioxide, tota l [Moles/volume] in Serum or Plasma [facility] Carbon dioxide, tota l [Moles/volume] in Serum or Plasma [facility] Carbon dioxide, tota l [Moles/volume] in Serum or Plasma [facility] Cardiac event recording [facility] Chloride [Moles/volu me] in Serum or Plasma [facility] Work Phone: Chloride [Moles/volu me] in Serum or Plasma [facility] Chloride [Moles/volu me] in Serum or Plasma [facility] Chloride [Moles/volu me] in Serum or Plasma [facility] Chloride [Moles/volu me] in Serum or Plasma [facility] Chloride [Moles/volu me] in Serum or Plasma [facility] Cholesterol [Mass/vo lume] in Serum or Plasma [facility] Work Phone: Cholesterol in HDL [Mass/volume] in Serum or Plasma [facility] Work Phone: Cholesterol in LDL [Mass/volume] in Serum or Plasma [facility] Work Phone: Clostridioides diffi cile DNA [Presence] in Unspecified specimen by ZHANE with probe detection [facility] Creatinine [Mass/vol ume] in Serum or Plasma [facility] Creatinine [Moles/vo lume] in Serum or Plasma [facility] Work Phone: Creatinine [Moles/vo lume] in Serum or Plasma [facility] Creatinine [Moles/vo lume] in Serum or Plasma [facility] Creatinine [Moles/vo lume] in Serum or Plasma [facility] Creatinine [Moles/vo lume] in Serum or Plasma [facility] Creatinine [Moles/vo lume] in Serum or Plasma [facility] End: 03-08-2026 DBT Breast - bilateral screening [facility] SCREENING [facility] Radiology Routine Encounter for screening mammogram for breast cancer 1 Occurrences starting 02/06/2025 until 03/08/2026 [facility] Work Phone: Comment on above: 1 Occurrences starting 02/06/2025 until 03/08/2026 Erythrocyte mean corpuscular volume determination [facility] Erythrocyte mean corpuscular volume determination [facility] Erythrocyte mean corpuscular volume determination [facility] Erythrocyte mean corpuscular volume determination [facility] Erythrocyte mean corpuscular volume determination [facility] Gastrointestinal pathogens panel - Stool by ZHANE with probe detection [facility] Glucose [Mass/volume ] in Serum or Plasma [facility] Work Phone: Glucose [Mass/volume ] in Serum or Plasma [facility] Glucose [Mass/volume ] in Serum or Plasma [facility] Glucose [Mass/volume ] in Serum or Plasma [facility] Glucose [Mass/volume ] in Serum or Plasma [facility] Glucose [Mass/volume ] in Serum or Plasma [facility] Glucose [Mass/volume ] in Serum or Plasma [facility] Hematocrit [Volume Fraction] of Blood [facility] Work Phone: Hematocrit [Volume Fraction] of Blood [facility] Hematocrit [Volume Fraction] of Blood [facility] Hematocrit [Volume Fraction] of Blood [facility] Hematocrit [Volume Fraction] of Blood [facility] Hematocrit [Volume Fraction] of Blood [facility] Hemoglobin [Mass/vol ume] in Blood [facility] Work Phone: Hemoglobin [Mass/vol ume] in Blood [facility] Hemoglobin [Mass/vol ume] in Blood [facility] Hemoglobin [Mass/vol ume] in Blood [facility] Hemoglobin [Mass/vol ume] in Blood [facility] Hemoglobin [Mass/vol ume] in Blood [facility] Hemoglobin [Presence ] in Urine [facility] Hemoglobin A1c/Hemoglobin.total in Blood [facility] INR in Blood by Coagulation assay [facility] Work Phone: Lactoferrin [Presenc e] in Stool by Immunoassay [facility] Leukocytes [#/volume ] in Blood [facility] Work Phone: Leukocytes [#/volume ] in Blood [facility] Leukocytes [#/volume ] in Blood [facility] Leukocytes [#/volume ] in Blood [facility] Leukocytes [#/volume ] in Blood [facility] Leukocytes [#/volume ] in Blood [facility] Lipid 1996 panel - S sondra or Plasma [facility] Work Phone: Magnesium [Mass/volu me] in Serum or Plasma [facility] Mean corpuscular hemoglobin concentration determination [facility] Work Phone: Mean corpuscular hemoglobin concentration determination [facility] Mean corpuscular hemoglobin concentration determination [facility] Mean corpuscular hemoglobin concentration determination [facility] Mean corpuscular hemoglobin concentration determination [facility] Mean corpuscular hemoglobin concentration determination [facility] Mean corpuscular hemoglobin determination [facility] Work Phone: Mean corpuscular hemoglobin determination [facility] Mean corpuscular hemoglobin determination [facility] Mean corpuscular hemoglobin determination [facility] Mean corpuscular hemoglobin determination [facility] Mean corpuscular hemoglobin determination [facility] Measurement of keton es in urine using dipstick [facility] Measurement of renal function [facility] Work Phone: Measurement of renal function [facility] Measurement of renal function [facility] Measurement of renal function [facility] Measurement of renal function [facility] Measurement of renal function [facility] Measurement of renal function [facility] End: 04-07-2025 MG Breast Screening [facility]CRE[facility] Radiology Routine Encounter for screening mammogram for breast cancer 1 Occurrences starting 03/08/2024 until 04/07/2025 [facility] Work Phone: Comment on above: 1 Occurrences starting 03/08/2024 until 04/07/2025 Microscopic urinalysis [facility] Neutrophil count [facility] Work Phone: Neutrophil count [facility] Neutrophil count [facility] Neutrophil count [facility] Neutrophil count [facility] Neutrophil percent differential count [facility] Work Phone: Neutrophil percent differential count [facility] Neutrophil percent differential count [facility] Neutrophil percent differential count [facility] Neutrophil percent differential count [facility] NM Heart Views W str ess and W radionuclide IV [facility] Ova and parasites identified in Unspecified specimen by Light microscopy [facility] Partial thromboplast in time, activated [facility] Work Phone: Patient Education [facility] Now in Work Phone: Patient referral [facility] Work Phone: pH of Urine [facility] Platelets [#/volume] in Blood [facility] Work Phone: Platelets [#/volume] in Blood [facility] Platelets [#/volume] in Blood [facility] Platelets [#/volume] in Blood [facility] Platelets [#/volume] in Blood [facility] Platelets [#/volume] in Blood [facility] Polysomnography [facility] Polysomnography [facility] Potassium [Moles/vol ume] in Serum or Plasma [facility] Work Phone: Potassium [Moles/vol ume] in Serum or Plasma [facility] Potassium [Moles/vol ume] in Serum or Plasma [facility] Potassium [Moles/vol ume] in Serum or Plasma [facility] Potassium [Moles/vol ume] in Serum or Plasma [facility] Potassium [Moles/vol ume] in Serum or Plasma [facility] Potassium measurement [facility] Prothrombin time [facility] Work Phone: Red blood cell count [facility] Work Phone: Red blood cell count [facility] Red blood cell count [facility] Red blood cell count [facility] Red blood cell count [facility] Red blood cell count [facility] Red cell distributio n width determination [facility] Work Phone: Red cell distributio n width determination [facility] Red cell distributio n width determination [facility] Red cell distributio n width determination [facility] Red cell distributio n width determination [facility] Red cell distributio n width determination [facility] Serum chloride measurement [facility] Serum inorganic phos phate measurement [facility] Sodium [Moles/volume ] in Serum or Plasma [facility] Work Phone: Sodium [Moles/volume ] in Serum or Plasma [facility] Sodium [Moles/volume ] in Serum or Plasma [facility] Sodium [Moles/volume ] in Serum or Plasma [facility] Sodium [Moles/volume ] in Serum or Plasma [facility] Sodium [Moles/volume ] in Serum or Plasma [facility] Sodium measurement [facility] Specific gravity of Urine [facility] T4 free measurement [facility] Work Phone: Total protein measurement [facility] Work Phone: Total protein measurement [facility] Total protein measurement [facility] Triglycerides measurement [facility] Work Phone: Troponin I measurement [facility] Work Phone: Urea nitrogen [Mass/volume] in Serum or Plasma [facility] Work Phone: Urea nitrogen [Mass/volume] in Serum or Plasma [facility] Urea nitrogen [Mass/volume] in Serum or Plasma [facility] Urea nitrogen [Mass/volume] in Serum or Plasma [facility] Urea nitrogen [Mass/volume] in Serum or Plasma [facility] Urea nitrogen [Mass/volume] in Serum or Plasma [facility] Urea nitrogen [Mass/volume] in Serum or Plasma [facility] Urinalysis, blood, qualitative [facility] Urine dipstick for glucose [facility] Urine dipstick for leukocyte esterase [facility] Urine dipstick for nitrite [facility] Urine dipstick for protein [facility] Urine examination [facility] Urine microscopy: epithelial cells [facility] Urine Microscopy: wh ite cells [facility] Urobilinogen [Presen ce] in Urine [facility] US Carotid arteries [facility] Work Phone: US Heart [facility] Work Phone: VLDL cholesterol measurement [facility] Work Phone: [facility] Immunizations Immunization Date Immunization Notes Care Provider Kimani brooks 11-22-2023 influenza, injectabl e, quadrivalent, preservative free Dr. Jarred Lopez Work Phone: [facility] 11-22-2023 influenza virus vaccine, unspecified formulation Irena Wild [facility] 04-07-2023 pneumococcal (PCV20) vaccine, 20 valent (PREVNAR 20) Dwayne Lopez MD Work Phone: [facility] 04-07-2023 pneumococcal Conjuga te, unspecified formulation Dwayne Lopez MD Work Phone: [facility] Work Phone: 06-09-2021 tetanus toxoid, redu juan c diphtheria toxoid, and acellular pertussis vaccine, adsorbed [facility] 02-18-2021 Covid (Pfizer) [facility] 01-29-2021 Covid (Pfizer) [facility] 09-18-2019 influenza, injectabl e, quadrivalent, contains preservative Shital Patel [facility] 09-18-2019 influenza virus vaccine, unspecified formulation Irena Hood [facility] 08-17-2019 influenza, injectabl e, quadrivalent, preservative free Shital Patel [facility] 07-04-2018 influenza, injectabl e, quadrivalent, preservative free Shital Patel [facility] 07-04-2018 pneumococcal polysaccharide vaccine, 23 valent Shital Patel MA [facility] 09-07-2013 influenza, injectable,quadrivalent , preservative free, pediatric [facility] 09-07-2013 influenza, seasonal, injectable, preservative free Shital Patel MA [facility] 11-23-2012 pneumococcal polysaccharide vaccine, 23 valent Shital Patel [facility] 11-23-2012 Pneumococcal Vaccine [facility] Work Phone: 11-23-2012 pneumococcal vaccine , unspecified formulation Dr. Ganesh Garcia Work Phone: [facility] 08-14-2010 influenza, seasonal, injectable Angelika De La Torre [facility] Work Phone: 03-10-2010 influenza, seasonal, injectable; Translations: [Follow Up Appt 2 weeks] Angelika De La Torre [facility] Work Phone: 09-11-2009 novel [id number], preservative-free, injectable Shital Patel MA [facility] 10-10-2008 pneumococcal polysaccharide vaccine, 23 valent Shital Patel MA [facility] 08-25-2008 influenza virus vaccine, unspecified formulation Shital Patel [facility] Work Phone: 04-24-2006 tetanus and diphther ia toxoids, adsorbed, preservative free, for adult use (2 Lf of tetanus toxoid and 2 Lf of diphtheria toxoid) Shital Patel [facility] Work Phone: Payers Date Payer Category Payer Unknown [id number] 2024 Medicaid [id number] 2024 Private Health Insurance [id number] 2024 Self-pay [id number] 2022 Medicare (Managed Care) VINH DICKENS HMO [id number] 2022 Unknown VINH HANKS [employer] S [employer] ANTHANEESH MEDIBLUE O [id number] 2022-Present [phone] [address] [place] [address] [facility] [id number]. [id number] 2022 Unknown [id number]. 1.13.159.2. 7.3.760946.315 2014 Medicaid [id number] Medicare [id number] Medicare [id number] Unknown [id number] 2.16.840.1.823685.3.579.2. 273 Unknown [id number] 2.16.840.1.729596.3.579.2. 273 Unknown [id number] 2.16.840.1.424468.3.579.2. 273 Unknown [id number] 2.16.840.1.137534.3.579.2. 273 Unknown [id number] 2.840.1.617955.3.579.2. 273 Unknown [id number] 2.840.1.226152.3.579.2. 462 Unknown [id number] 2.840.1.872592.3.579.2. 462 Unknown [id number] 2.840.1.946175.3.579.2. 462 Unknown [id number] 2.840.1.579685.3.579.2. 462 Unknown [id number] 2.840.1.533884.3.579.2. 462 Unknown [id number] 2.840.1.340417.3.579.2. 462 Unknown [id number] 2.840.1.145934.3.579.2. 462 Unknown [id number] 2.840.1.708416.3.579.2. 462 Unknown [id number] 2.840.1.047179.3.579.2. 462 Unknown [id number] 2.840.1.679526.3.579.2. 462 Unknown [id number] 2.840.1.871501.3.579.2. 462 Unknown [id number] 2.840.1.252585.3.579.2. 462 Unknown [id number] 2.16.840.1.908835.3.579.2. 462 Unknown [id number] 2.840.1.493458.3.579.2. 462 Unknown [id number] 2.16.840.1.752345.3.579.2. 462 Unknown [id number] 2.16.840.1.340127.3.579.2. 462 Unknown [id number] 2.16.840.1.357341.3.579.2. 462 Unknown [id number] 2.16.840.1.697305.3.579.2. 462 Unknown [id number] 2.16.840.1.698556.3.579.2. 462 Unknown [id number] 2.16.840.1.702352.3.579.2. 462 Unknown [id number] 2.16.840.1.300678.3.579.2. 462 Unknown [id number] 2.16.840.1.208033.3.579.2. 462 Unknown [id number] 2.16.840.1.299283.3.579.2. 462 Unknown [id number] 2.16.840.1.941896.3.579.2. 462 Unknown [id number] 2.16.840.1.594277.3.579.2. 462 Unknown [id number] 2.16.840.1.489876.3.579.2. 462 Unknown [id number] 2.16.840.1.294313.3.579.2. 462 Unknown [id number] 2.16.840.1.110266.3.579.2. 462 Unknown [id number] 2.16.840.1.780368.3.579.2. 462 Unknown [id number] 2.16.840.1.470774.3.579.2. 462 Unknown [id number] 2.16.840.1.545387.3.579.2. 462 Unknown [id number] 2.16.840.1.929751.3.579.2. 462 Unknown [id number] 2.16.840.1.998462.3.579.2. 462 Unknown [id number] 2.16.840.1.607855.3.579.2. 462 Unknown [id number] 2.16.840.1.637309.3.579.2. 462 Unknown [id number] 2.16.840.1.241988.3.579.2. 462 Unknown [id number] 2.16840.1.456439.3.579.2. 462 Unknown [id number] 2.16840.1.563227.3.579.2. 462 Unknown [id number] 2.840.1.773610.3.579.2. 462 Unknown [id number] 2.16840.1.257260.3.579.2. 462 Unknown [id number] 2.840.1.115903.3.579.2. 462 Unknown [id number] 2.840.1.691248.3.579.2. 462 Unknown [id number] 2.840.1.604345.3.579.2. 462 Unknown [id number] 2.16840.1.319893.3.579.2. 462 Unknown [id number] 2.16840.1.630598.3.579.2. 462 Unknown [id number] 2.16840.1.443389.3.579.2. 462 Unknown [id number] 2.16840.1.678297.3.579.2. 462 Unknown [id number] 2.16840.1.788071.3.579.2. 462 Unknown [id number] 2.16840.1.544968.3.579.2. 462 Unknown [id number] 2.16.840.1.056305.3.579.2. 462 Unknown [id number] 2.16840.1.869179.3.579.2. 462 Unknown [id number] 2.16.840.1.315380.3.579.2. 462 Unknown [id number] 2.16.840.1.230148.3.579.2. 462 Unknown [id number] 2.16.840.1.648293.3.579.2. 462 Unknown [id number] 2.16.840.1.178193.3.579.2. 462 Unknown [id number] 2.16.840.1.833999.3.579.2. 462 Unknown [id number] 2.16.840.1.702175.3.579.2. 462 Unknown [id number] 2.16.840.1.053862.3.579.2. 462 Unknown [id number] 2.16.840.1.306945.3.579.2. 462 Unknown [id number] 2.16.840.1.910568.3.579.2. 462 Unknown [id number] 2.16.840.1.851261.3.579.2. 462 Unknown [id number] 2.16.840.1.972751.3.579.2. 462 Unknown [id number] 2.16.840.1.896725.3.579.2. 462 Unknown [id number] 2.16.840.1.192906.3.579.2. 462 Unknown [id number] 2.16.840.1.863318.3.579.2. 462 Unknown [id number] 2.16.840.1.781753.3.579.2. 462 Unknown [id number] 2.16.840.1.261387.3.579.2. 462 Unknown [id number] 2.16.840.1.124965.3.579.2. 462 Unknown [id number] 2.16.840.1.322838.3.579.2. 462 Unknown [id number] 2.16.840.1.538973.3.579.2. 462 Unknown [id number] 2.16840.1.770625.3.579.2. 462 Unknown [id number] 2.16840.1.053659.3.579.2. 462 Unknown [id number] 2.16840.1.577386.3.579.2. 462 Unknown [id number] 2.0.1.718930.3.579.2. 462 Unknown [id number] 2.0.1.093713.3.579.2. 462 Social History Date Type Detail Facility Start: 01-13-2022 End: 01-20-2024 Tobacco smoking status [facility] Unknown if ever smoked [facility] Start: 04-08-2019 Occasional [facility] Start: 12-12-2020 None [facility] Start: 02-28-2021 Homeless [facility] Start: 02-28-2021 Cigarettes [facility] Start: 1965 Sex Assigned At Female W [facility] Start: 10-21-2020 End: 08-10-2025 Tobacco smoking status FLIS Ex-smoker [facility] Start: 06-25-1977 End: 10-07-2020 History of tobacco use Current smoker [facility] Start: 06-25-1977 End: 10-07-2020 History of tobacco use Cigarette Smoker [facility] Start: 10-21-2020 End: 11-19-2022 Cigarettes smoked current (pack per day) - Reported 0.5 [facility] Start: 10-21-2020 End: 03-24-2023 Tobacco use and exposure Smokeless tobacco non-user [facility] Start: 10-31-2021 End: 08-10-2023 Alcohol intake Current non-drinker of alcohol (finding) [facility] Start: 05-27-2015 History SDOH Alcohol Comment Seldom- twice yearly [facility] Start: 1965 Sex Assigned At Not on file C [facility] Start: 11-19-2022 End: 04-23-2023 Tobacco use panel [facility] National Score (1-10 0), lower number is lower risk 70 [facility] Start: 01-22-2025 End: 01-26-2025 Sex Female (finding) [facility] Medical Equipment Procedure Code Equipment Code Equipment Origin al Text Equipment Identifier Dates TEST STRIPS TEST STRIPS [id number] Start: 08-14-2010 LANCET LANCET [id number] Start: 08-14-2010 INSULIN PEN NEEDLE [id number] Start: 08-14-2010 Comment on above: Test blood [...] Yes. Pt uses Freestyle Lite Insulinx Meter [id number] Start: 12-26-2019 use to test bloo d sugar THREE TIMES DAILY [id number] Start: 12-26-2019 Use one needle f or each dose. four/day. [id number] Start: 09-18-2019 Test blood sugar(s) 3 times daily. Dx: Type 2 DM - Uncontrolled E11.65 Insulin: Yes [id number] Start: 05-07-2016 Pen Needle,Diabetic, Disp Unit 29 [...] 06-01-2025 Functional status With Assist of 1 [facility] Work Phone: 05-31-2025 Functional status Ambulates;Beds giuseppe Commode;Back to bed [facility] Work Phone: 05-28-2025 Functional status Activity Abili ty With Assist of 2 [facility] Work Phone: 01-05-2024 Functional status Bedrest [facility] Work Phone: 01-03-2024 [facility] Work Phone: 11-24-2023 Functional status Ambulates [facility] Work Phone: 05-21-2022 Functional status Ambulates;Beds giuseppe Commode [facility] Work Phone: 04-25-2022 Functional status Bedpan [facility] Work Phone: 04-25-2022 Functional status None [facility] Work Phone: 03-30-2022 Functional status Ambulates;Laurent r;Bedside Commode [facility] Work Phone: 03-20-2022 Functional status Activity Abili ty Unable to Assess [facility] Work Phone: 05-27-2015 Are you deaf, or do you have serious difficulty hearing No 05/27/2015 2:20 PM EDT Faith Charles RN No [facility] Work Phone: 05-27-2015 Are you blind, or do you have serious difficulty seeing, even when wearing glasses No 05/27/2015 2:20 PM EDT Faith Charles RN No [facility] 05-27-2015 Do you have serious difficulty walking or climbing stairs No 05/27/2015 2:20 PM EDT Faith Charles RN No [facility] 05-27-2015 Do you have difficul ty dressing or bathing No 05/27/2015 2:20 PM EDT Faith Charles RN No [facility] 05-27-2015 Because of a physica l, mental, or emotional condition, do you have difficulty doing errands alone such as visiting a physician's office or shopping No 05/27/2015 2:20 PM EDT Faith Charles RN No [facility] Mental Status Date Assessment Result Facility 06-01-2025 Cognitive function Voice/Name [facility] Work Phone: 05-28-2025 Cognitive function Voice/Name [facility] Work Phone: 05-26-2025 Cognitive function Awake;Alert;A ppropriate;Fol lows Commands [facility] Work Phone: 01-22-2025 Cognitive function Awake;Alert;A ppropriate;Fol lows Commands [facility] Work Phone: 01-20-2024 Cognitive function Awake;Alert;A ppropriate;Fol lows Commands [facility] Work Phone: 01-05-2024 Cognitive function Voice/Name [facility] Work Phone: 01-03-2024 Cognitive function Voice/Name [facility] Work Phone: 01-01-2024 Cognitive function Voice/Name [facility] Work Phone: 11-24-2023 Cognitive function Voice/Name [facility] Work Phone: 11-19-2023 Cognitive function Level Of Cons ciousness Awake;Alert;Appropriate;Fol lows Commands [facility] Work Phone: 06-06-2023 Cognitive function Level Of Cons ciousness Awake;Alert;Appropriate;Fol lows Commands [facility] Work Phone: 01-29-2023 Cognitive function Awake;Alert;A ppropriate;Fol lows Commands [facility] Work Phone: 11-05-2022 Cognitive function Voice/Name [facility] Work Phone: 08-24-2022 Cognitive function Voice/Name [facility] Work Phone: 05-21-2022 Cognitive function Voice/Name [facility] Work Phone: 05-20-2022 Cognitive function Level Of Cons ciousness Awake;Alert;Appropriate;Fol lows Commands [facility] Work Phone: 05-03-2022 Cognitive function Awake;Alert;A ppropriate;Fol lows Commands [facility] Work Phone: 04-25-2022 Cognitive function Voice/Name [facility] Work Phone: 03-30-2022 Cognitive function Comprehension Ability Demonstrates ability to follow instructions/comprehend [facility] Work Phone: 03-30-2022 Cognitive function Level Of Cons ciousness Awake;Alert [facility] Work Phone: 03-29-2022 Cognitive function Voice/Name [facility] Work Phone: 03-20-2022 Cognitive function Voice/Name [facility] Work Phone: 02-24-2022 Cognitive function Voice/Name [facility] Work Phone: 01-13-2022 Cognitive function Level Of Cons ciousness Awake;Alert;Appropriate;Fol lows Commands [facility] Work Phone: 05-27-2015 Because of a physica l, mental, or emotional condition, do you have serious difficulty concentrating, remembering, or making decisions No 05/27/2015 2:20 PM EDT Faith Charles RN No [facility] Clinical Notes 07-23-2015 to 09-04-2025 Note Date & Type Note Facility 09-04-2025 Note HNO ID: [id number] Author: DEBRA GAVIN MA Service: ? Author Type: Pnp Type: Progress Notes Filed: 09/04/2025 09:15 Note Text: POPULATION HEALTH NAVIGATION OUTREACH Action/FYI [employer] Deep Dive- A1C Chart reviewed No results found Outside PCP Contacted for insurance attribution No answer Mailbox is full Reason for Outreach Care Gap/HCC or Scheduling Wellness Visits Care Gaps due: HBA1C Patient Contacted: Unable or unnecessary to reach patient: Unable to leave messageAttribution Options:[id number]} Navigation Signature: Debra Gavin MA September 04, 2025 9:13 AM [facility] 09-04-2025 Note Patient Outreach (NE TNAV) TERRANCE BRAR ([id number]) 1965 F Date Time Provider Department 09/04/25 DEBRA GAVINV During your visit today, we recorded the [...] to reach patient: Unable to leave messageAttribution Options:[id number]} Navigation Signature: Debra Gavin MA September 04, [...] Population Health Navigation Outreach [3910] Cmt: Nikki Magana Dive- A1C Prescriptions as of 09/04/2025 - dulaglutide [...] blood sugar THREE TIMES DAILY - Insulin [place], Disposable, (BD ULTRA-FINE BEN PEN NEEDLE) 32 [...] [E04.1] 12/07/2008 Routine General Medical Examination at [facility]*12/10/2008 06/03/2015 Benign neoplasm of colon [D12.6] [...] Class 1 obes (more content not included)... [facility] 06-01-2025 Discharge summary Note Date/Time June 01, 2025 12:20pm [facility] Medical Records Department [address] [place] [address] Discharge Summary 06/01/25 1217 MR#: [id number] Acct: [id number] Name: TERRANCE BRAR Rep #:[id number] : 1965 59 From: John Shaw MD PCP: Dr. Lizet Linares MD Status:A DM IN [id number] Providers Date of Admission: 05/28/25 Date of [...] antibiotics ? [facility] Presentation consistent with cellulitis secondary to [...] Chronic debility ? Patient is at an [facility] 4. Class II obesity with BMI of [...] ? Requested for PT OT eval and mental health social worker to assist with discharge planning Time spent [...] bisacodyl 10 mg rectal suppository 10 mg MS DAILY PRN constipation 08/19/24 dulaglutide 3 mg/0.5 [...] % (Auto) 53.5, Lymph % (Auto) 35.9, Rincon % (Auto) 5.5, Eos % (Auto) 2.7, [...] constipation) bisacodyl 10 mg suppository 10 mg MS DAILY PRN (Reason: constipation) Trulicity 3 mg/0.5 [...] in before D/C Order can be placed): Custodial Facility Charges/Coding Visit Charges Inpatient E&M: 29358 Disch Hosp >30min 06/01/25 1220 <Electronically signed by John Shaw MD> Cosigner Signature (if applicable): CC: Dr. John Shaw MD; Dr. Lizet Linares MD~ Signed [facility] Work Phone: 1([phone]) [phone] Discharge summary Author John Shaw [facility] Note Date/Time June 01, 2025 12: 16pm [facility] Medical Records Department [address] [place] [address] Transfer to [facility] MR#: [id number] Acct: [id number] Name: TERRANCE BRAR Rep #:[id number] : 1965 59 From: John Shaw MD PCP: Dr. Lizet Linares MD Status:A DM IN Certification of patient admission REQUIRED AT TIME OF ADMISSION. I CERTIFY THAT POST-HOSPITAL ECF SERVICES ARE REQUIRED TO BE GIVEN ON AN IN-PATIENT BASIS BECAUSE OF THE ABOVE NAMED PATIENT'S NEED FOR LONG-TERM CARE ON A CONTINUING BASIS FOR THE CONDITION(S) FOR WHICH HE/SHE WAS RECEIVING IN-PATIENT HOSPITAL SERVICES PRIOR TO HIS/HER TRANSFER TO THE ECF. 06/01/25 1216<Electronically signed by John Shaw MD> [...] antibiotics ? [facility]. Presentation consistent with cellulitis secondary to [...] Chronic debility ? Patient is at an [facility] 4. Class II obesity with BMI of [...] ? Requested for PT OT eval and mental health social worker to assist with discharge planning Time spent [...] constipation) bisacodyl 10 mg suppository 10 mg MS DAILY PRN (Reason: constipation) Trulicity 3 mg/0.5 [...] in before D/C Order can be placed): Custodial Facility 06/01/25 1216 <Electronically signed by John Shaw MD> Cosigner Signature (if applicable): CC: Dr. Chavez Alcala DO; Dr. Lizet Linares MD; Dr. Juan Chiang MD; Dr. Juan Whatley MD ~ [facility] Work Phone: 1([phone]) 156-943608-08-2025 Hospital Discharge instructionsAdditional Instructions Date of Discharge: 06/01/25[facility] Work Phone: 1(230) 128-650808-08-2025 Progress note Author Juan [facility] Note Date/Time June 01, 2025 10: 19am [facility] Medical Records Department [address] [place] [address] Progress Note - Infect Disease 06/01/25 1017 MR#: [id number] Acct: [id number] Name: TERRANCE BRAR Rep #:[id number] : 1965 59 From: Juan butler MD PCP: Dr. Lizet Linares MD Status:A DM IN Location: MS3 TD873-0 Physical Exam Narrative Feeling better, some nausea. [...] Cosigner Signature (if applicable): CC: ~ Signed [facility] Work Phone: 1(858) 340-340008-08-2025 Progress note Author John Shaw [facility] Note Date/Time June 01, 2025 8:3 8am [facility] Medical Records Department [address] [place] [address] Progress Note - Hospitalist 06/01/25714 MR#: [id number] Acct: [id number] Name: TERRANCE BRAR Rep #:[id number] : 1965 59 From: John Shaw MD PCP: Dr. Lizet Linares MD Status:A DM IN Location: [place] [address] Reason for Visit Chief Complaint: Worsening upper [...] % (Auto) 52.9, Lymph % (Auto) 34.8, Rincon % (Auto) 7.6, Eos % (Auto) 2.5, [...] antibiotics ? [facility]. Presentation consistent with cellulitis secondary to [...] Chronic debility ? Patient is at an ECF 4. Class II obesity with BMI of [...] ? Requested for PT OT eval and mental health social worker to assist with discharge planning Time spent in the patient's overall evaluation,decision-making process, review of diagnostic data, adjustment of management, discussion with other providers, nursing nursing and ancillary staff involved in patient's care documentation, 35 Minutes Charges/Coding Visit Charges Inpatient E&M: 10441 Subs Hosp L2 06/01/25 0838 <Electronically signed by John Shaw MD> Cosigner Signature (if applicable): CC: ~ Signed [facility] Work Phone: 1(288) 249-480708-08-2025 Progress note Author Juan Whatley [facility] Note Date/Time June 01, 2025 8:2 4am [facility] Medical Records Department [address] [place] [address] Progress Note - Surgery 06/01/25 0800 MR#: [id number] Acct: [id number] Name: TERRANCE BRAR Rep #:[id number] : 1965 59 From: Juan Whatley MD PCP: Dr. Lizet Linares MD Status:A DM IN Location: NE3 ZY985-2 Subjective Subjective Doing well. Reports improved pain. [...] week in clinic Charges/Coding Procedures Integumentary 111xxx-113xx: 74595 Global Visit 06/01/25 08 <Electronically signed by Juan Whatley MD> Cosigner Signature (if applicable): CC: ~ Signed [facility] Work Phone: [phone]) [phone] Progress note Author Juan Chiang [facility] Note Date/Time May 31, 2025 10: 58am [facility] Medical Records Department [address] [place] [address] Progress Note - Infect Disease 05/31/25 1057 MR#: [id number] Acct: [id number] Name: TERRANCE BRAR Rep #:[id number] : 1965 59 From: Juan butler MD PCP: Dr. Lizet Linares MD Status:A DM IN Location: MS3 QP819-6 Physical Exam Narrative Some nausea, but overall [...] Cosigner Signature (if applicable): CC: ~ Signed [facility] Work Phone: 1([phone] 801-979508-07-2025 Progress note Author John Shaw [facility] Note Date/Time May 31, 2025 9:1 4am [facility] Medical Records Department [address] [facility] [place] [address] Progress Note - Hospitalist 05/31/25 0654 MR#: [id number] Acct: [id number] Name: TERRANCE BRAR Rep #:[id number] : 1965 59 From: John Shaw MD PCP: Dr. Lizet Linares MD Status:A DM IN Location: [place] 444435-1 Reason for Visit Chief Complaint: Worsening upper [...] % (Auto) 55.0, Lymph % (Auto) 32.4, Rincon % (Auto) 8.1, Eos % (Auto) 2.5, [...] antibiotics ? [facility]. Presentation consistent with cellulitis secondary to [...] ? Requested for PT OT eval and mental health social worker to assist with discharge planning Time spent in the patient's overall evaluation,decision-making process, review of diagnostic data, adjustment of management, discussion with other providers, nursing nursing and ancillary staff involved in patient's care documentation, 38 Minutes Charges/Coding Visit Charges Inpatient E&M: 66564 Subs Hosp L2 05/31/25 0914 <Electronically signed by John Shaw MD> Cosigner Signature (if applicable): CC: ~ Signed [facility] Work Phone: 1(374) 334-337208-07-2025 Progress note Author Juan Whatley [facility] Note Date/Time May 31, 2025 9:0 3am [facility] Medical Records Department [address] [place] [address] Progress Note - Surgery 05/31/25 0836 MR#: [id number] Acct: [id number] Name: TERRANCE BRAR Rep #:[id number] : 1965 59 From: Juan Whatley MD PCP: Dr. Lizet Linares MD Status:A DM IN Location: MS3 NB439-5 Subjective Subjective Pain improved today. No drainage [...] % (Auto) 52.9, Lymph % (Auto) 34.8, Rincon % (Auto) 7.6, Eos % (Auto) 2.5, [...] from [facility] standpoint) Charges/Coding Procedures Integumentary 111xxx-113xx: 50064 Global Visit 05/31/25 0903 <Electronically signed by Juan Whatley MD> Cosigner Signature (if applicable): CC: ~ Signed [facility] Work Phone: [phone] Consult note Author Juan Whatley [facility] Note Date/Time May 30, 2025 5:0 3pm [facility] Medical Records Department [address] [place] [address] Consultation - Surgical 05/30/25 1655 MR#: [id number] Acct: [id number] Name: TERRANCE BRAR Rep #:[id number] : 1965 59 From: Juan Whatley MD PCP: Dr. Lizet Linares MD Status:A DM IN Location: MS3 CJ408-0 Assessment & Plan Assessment/Plan (1) History of [...] has hypothyroidism and stage III kidney disease [facility] Medical History MRSA (methicillin resistant staph aureus) [...] bisacodyl 10 mg rectal suppository 10 mg MS DAILY PRN constipation 08/19/24 Unknown History dulaglutide [...] for therapy for chronic back pain housing: pen[facility] Smoking Status: Former smoker Tobacco: How many [...] % (Auto) 55.0, Lymph % (Auto) 32.4, Rincon % (Auto) 8.1, Eos % (Auto) 2.5, [...] Multi Select Codes Visit Charges Office Visit/Consults: 29982 IP Consult L3 05/30/25 1703 <Electronically signed by Juan Whatley MD> Cosigner Signature (if applicable): CC: Dr. Lizet Linares MD~ Signed [facility] Work Phone: [phone] [facility] 05-30-2025 Progress note Author [facility] Note Date/Time May 30, 2025 1:3 3pm [facility] Medical Records Department [address] [place] [address] Progress Note - Infect Disease 05/30/25 1332 MR#: [id number] Acct: [id number] Name: TERRANCE BRAR Rep #:[id number] : 1965 59 From: Juan butler MD PCP: Dr. Lizet Linares MD Status:A DM IN [facility] Physical Exam Narrative Not feeling any better, [...] Cosigner Signature (if applicable): CC: ~ Signed [facility] Work Phone: 1([phone] 479-147608-06-2025 Consult note Author Clem Carnes [facility] Note Date/Time May 30, 2025 1:0 8pm [facility] Medical Records Department [address] [place] [address] Pharmacokinetic/Renal -Consult 05/29/25 1101 MR#: [id number] Acct: [id number] Name: TERRANCE BRAR Rep #:[id number] : 1965 59 From: Clem Carnes PCP: Dr. Lizet Linares MD Status:A DM IN Y [facility] Consult Antibiotic Management Pharmacy has been consulted [...] Date Juan Chiang MD CC: ~ Signed [facility] Work Phone: [phone] Consult note Author Joao Marie [facility] Note Date/Time May 30, 2025 1:0 8pm [facility] Medical Records Department [address] [place] [address] Pharmacokinetic/Renal -Consult 05/30/25 1102 MR#: [id number] Acct: [id number] Name: TERRANCE BRAR Rep #:[id number] : 1965 59 From: Joao live PCP: Dr. Lizet Linares MD Status:A DM IN Y Location: [facility] RQ945-2 Consult Antibiotic Management Pharmacy has been consulted [...] Date Juan Chiang MD CC: ~ Signed [facility] Work Phone: 1([phone]) 303-480408-06-2025 Progress note Author John Shaw [facility] Note Date/Time May 30, 2025 7:4 2am [facility] Medical Records Department [address] [place] [address] Progress Note - Hospitalist 05/30/25 0735 MR#: [id number] Acct: [id number] Name: TERRANCE BRAR Rep #:[id number] : 1965 59 From: John Shaw MD PCP: Dr. Lizet Linares MD Status:A DM IN Location: MS3 FP424-9 Reason for Visit Chief Complaint: Worsening upper [...] % (Auto) 55.0, Lymph % (Auto) 32.4, Rincon % (Auto) 8.1, Eos % (Auto) 2.5, [...] antibiotics ? [facility]. Presentation consistent with cellulitis secondary to [...] Chronic debility ? Patient is at an ECF 4. Class II obesity with BMI of [...] 35 Minutes Charges/Coding Visit Charges Inpatient E&M: 24950 Subs Hosp L2 05/30/25 0742 <Electronically signed by John Shaw MD> Cosigner Signature (if applicable): CC: ~ Signed [facility] Work Phone: [phone]) [phone] Consult note Author Juan Chiang [facility] Note Date/Time May 29, 2025 10: 40am [facility] Medical Records Department [address] [place] [address] Consultation - Infectious Dx 05/29/25 1037 MR#: [id number] Acct: [id number] Name: TERRANCE BRAR Rep #:[id number] : 1965 59 From: Juan butler MD PCP: Dr. Lizet Linares MD Status:A DM IN Location: MS3 WM886-8 Assessment & Plan Assessment/Plan (1) Infected lip [...] performed and neg except as noted above. [facility] Medical History MRSA (methicillin resistant staph aureus) [...] bisacodyl 10 mg rectal suppository 10 mg MS DAILY PRN constipation 08/19/24 Unknown History dulaglutide [...] for therapy for chronic back pain housing: penit[facility]iary Smoking Status: Former smoker Tobacco: How many [...] applicable): CC: Dr. Lizet Linares MD~ Signed [facility] Work Phone: [phone] 613-837908-05-2025 Progress note Author John Shaw [facility] Note Date/Time May 29, 2025 8:2 0am [facility] Medical Records Department [address] [place] [address] Progress Note - Hospitalist 05/29/25805 MR#: [id number] Acct: [id number] Name: TERRANCE BARR Rep #:[id number] : 1965 59 From: John Shaw MD PCP: Dr. Lizet Linares MD Status:A DM IN Location: MS3 SZ512-8 Reason for Visit Chief Complaint: Worsening upper [...] % (Auto) 61.7, Lymph % (Auto) 27.3, Rincon % (Auto) 8.7, Eos % (Auto) 1.3, [...] antibiotics ? [facility]. Presentation consistent with cellulitis secondary to [...] Chronic debility ? Patient is at an ECF 4. Class II obesity with BMI of [...] 36 Minutes Charges/Coding Visit Charges Inpatient E&M: 06993 Subs Hosp L2 05/29/25 0820 <Electronically signed by John Shaw MD> Cosigner Signature (if applicable): CC: ~ Signed [facility] Work Phone: [phone] Discharge summary Author Delores Moya [facility] Note Date/Time May 28, 2025 4:5 1pm [facility] Medical Records Department [address] [place] [address] Emergency Department Summary 05/28/25 MR#: [id number] Acct: [id number] Name: TERRANCE BRAR Rep #:[id number] : 1965 59 From: Delores Moya MD PCP: Dr. Lizet Linares MD Status:A DM IN [facility] HPI History of Present Illness Chief Complaint: [...] as prescribed. She was seen by an INSTRUMENT MAN today and was referred here to the ED for further evaluation. Denies chest pain, shortness ofbreath, abdominal pain, nausea or vomiting. 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 Call [facility] ([phone]) or report to the closest Emergency Room. Call 911 if necessary. 05/28/25 1651 <Electronically signed by Delores Moya MD> Cosigner Signature (if applicable): CC: Dr. Lizet Linares MD ~ Signed [facility] Work Phone: [phone] 344-450408-04-2025 History and physical note Author Chavez Alcala [facility] Note Date/Time May 28, 2025 12: 16pm [facility] Medical Records Department [address] [place] [address] H&P Exam - Hospitalist 05/28/25 1134 MR#: [id number] Acct: [id number] Name: TERRANCE BRAR Rep #:[id number] : 1965 59 From: Chavez mayo DO PCP: Dr. Lizet Linares MD Status:A DM IN Location: NE3 HK128-1 HPI - General General Date of Admission: 05/28/25 Date of Service: 05/28/25 Chief Complaint: Worsening upper lip wound with surrounding cellulitis HPI Narrative TERRANCE BRAR, is a 59 F who presented to [facility] ED on 05/28/25 with worsening upper lip wound with surrounding cellulitis. Patient lives at [facility]. She initially came to the ED [...] discomfort. Will be admitted for further management. 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 1. Right upper lip swelling with cellulitis and failed outpatient antibiotics ? Admit under inpatient status to [facility]. Presentation consistent with cellulitis secondary to lip [...] 3. Chronic debility ? Has lived at [facility] for the past 1.5 years. Will [...] Full code, verified Expected disposition: Back to [facility], 2 to 3 days Total clinical time spent by myself addressing the patient's medical issues, reviewing all the data, and collaborating with patient's care team: 75 minutes. Charges/Coding Visit Charges Inpatient E&M: 75786 Init Hosp L3 05/28/25 1216 <Electronically signed by Chavez Alcala DO> Cosigner Signature (if applicable): CC: Dr. Chavez Alcala DO; Dr. Lizet Linares MD~ Signed [facility] Work Phone: 1([phone]) 385-890808-04-2025 Evaluation note* Diagnosis Onset Date Resolution Status Admit Date Abscess of lip acute May 11:34am History of diabetes mellitus acute May 28, 2025 11:34am Infected lip laceration [facility]: [phone] Evaluation note* Diagnosis Onset Date Resolution Status Admit Date Abscess of lip resolved May 11:34am History of diabetes mellitus inactiv e May 28, 2025 11:34am Infected lip laceration inactive A ugust 2024 11:34am [facility] Work Phone: [phone] Evaluation note* Diagnosis Onset Date Resolution Status Admit Date Abscess of lip resolved May 11:34am History of diabetes mellitus inactiv e May 28, 2025 11:34am Infected lip laceration inactive A ugust 2024 11:34am Abscess of lip resolved June 07t h2024 9:32am [facility] Work Phone: [phone] Evaluation note* Diagnosis Onset Date Resolution Status Admit Date Abscess of lip resolved May 11:34am History of diabetes mellitus inactiv e May 28, 2025 11:34am Infected lip laceration inactive A ugust 2024 11:34am Abscess of lip resolved May h2024 9:32am Abscess of lip resolved May d2024 1:35pm [facility] Work Phone: [phone] 297-877808-04-2025 Evaluation note* Diagnosis Onset Date Resolution Status Admit Date Abscess of lip resolved May 11:34am History of diabetes mellitus inactiv e May 28, 2025 11:34am Infected lip laceration inactive A ugust 2024 11:34am Abscess of lip resolved May h2024 9:32am Abscess of lip resolved June 15n d2024 1:35pm Ventral hernia without obstruction or gangrene acute Septembe r 2024 8:33am [facility] Work Phone: [phone] History and physical note [facility] Medical Records Department [address] [place] [address] H&P Exam - Hospitalist 05/28/25 1134 MR#: [id number] Acct: [id number] Name: TERRANCE BRAR Rep #:[id number] : 1965 59 From: Chavez mayo DO PCP: Dr. Lizet Linares MD Status:A DM IN Location: MS3 SJ966-8 HPI - General General Date of Admission: 05/28/25 Date of Service: 05/28/25 Chief Complaint: Worsening upper lip wound with surrounding cellulitis HPI Narrative TERRANCE BRAR, is a 59 F who presented to [facility] ED on 05/28/25 with worsening upper lip wound with surrounding cellulitis. Patient lives at [facility]. She initially came to the ED [...] discomfort. Will be admitted for further management. 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 1. Right upper lip swelling with cellulitis and failed outpatient antibiotics ? [facility] Presentation consistent with cellulitis secondary to [...] admit. Will treat with reduced dose of Hwbtsj97 units twice daily and Humalog 8 units plus sliding scale insulin with meals while inpatient, adjust as needed. Hold home Trulicity. 3. Chronic debility ? Has lived at [facility] for the past 1.5 years. Will [...] Full code, verified Expected disposition: Back to [facility], 2 to 3 days Total clinical time spent by myself addressing the patient's medical issues, reviewing all the data, and collaborating with patient's care team: 75 minutes. Charges/Coding Visit Charges Inpatient E&M: 02918 Init Hosp L3 05/28/25 1216 Cosigner Signature (if applicable): CC: Dr. Chavez Alcala DO; Dr. Lizet Linares MD~ Signed [facility]08-02-2025 Discharge summary [facility] Medical Records Department [address] [place] [address] Emergency Department Summary 05/26/25 MR#: [id number] Acct: [id number] Name: TERRANCE BRAR Rep #:[id number] : 1965 59 From: Raúl Brooks PCP: Dr. 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 It may contain incorrectwords, spelling, [...] % (Auto) 67.7 Lymph % (Auto) 24.6 Rincon % (Auto) 6.3 Eos % (Auto) 0.6 [...] constipation) bisacodyl 10 mg suppository 10 mg MS DAILY PRN (Reason: constipation) Trulicity 3 mg/0.5 [...] returnto the ED for reevaluation. Print Language: Gibraltarian Disposition Disposition: Home, Self Care What to do if you have Problems For any increased pain, shortness of breath, bleeding, nausea or vomiting, chestpain, or any unexpected problems, contact your Primary Care Provider. Call [facility] ([phone]) or report tothe closest Emergency Room. Call 911 if necessary. 05/26/25 0544 Cosigner Signature (if applicable): CC: Dr. Lizet Linares MD ~ Signed [facility]05-28-2025 NoteHNO ID: [id number] Author: ?, ?, ? Service: ? Author [...] they see another provider, please update their chart.[facility]05-28-2025 History of Present illness Narrative* Kimmy Jackson - 03/21/2025 12:26 PM EDT Diabetes Outreach Terrance Brar has been identified for clinical review due to having diabetes without a [id number] in the past 1 year. PSS Team [...] please update their chart. documented in [facility] NotePatient Outreach (4CQ) TERRANCE BRAR ([id number]) 1965 F Date Time Provider Department 03/21/25 [...] blood sugar THREE TIMES DAILY - Insulin [place], Disposable, (BD ULTRA-FINE BEN PEN NEEDLE) 32 [...] [E04.1] 12/07/2008 Routine General Medical Examination at [facility]*12/10/2008 06/03/2015 Benign neoplasm of colon [D12.6] [...] [M65.331] 06/21/2017 Trigger fin (more content not included)...[facility]05-27-2025 NoteHNO ID: [id number] Author: ?, ?, ? Service: ? Author [...] Signature: Raisa Martínez March 20, 2025 12:[address] [facility] History of Present illness Narrative* Raisa [...] 20, 2025 12:25 PM documented in this encounterAshtabula County Medical Center05-27-2025 NotePatient Outreach (NETNAV) TERRANCE BRAR ([id number]) 1965 F Date Time Provider Department 03/20/25 DWAYNE LOPEZ During your visit today, we recorded the following information about you: Raisa Epps 03/20/2025 12:51 PM Signed POPULATION HEALTH NAVIGATION OUTREACH Action/FYI Patient outreach for Hcc gaps; Mammogram, A1C, COLO, RUSSELL, KED, BP. AWV. LVM to schedule. After further review, pt [place] in [place] follows with facility doctor. Reason for Outreach [...] blood sugar THREE TIMES DAILY - Insulin Ches[place], Disposable, (BD ULTRA-FINE BEN PEN NEEDLE) 32 [...] [E04.1] 12/07/2008 Routine General Medical Examination at [facility]*12/10/2008 06/03/2015 Benign neoplasm of colon [D12.6] [...] finger [M65.351] 0 (more content not included)... [facility]04-21-2025 History of Present illness Narrative* Elizabeth Jennings RPh - 02/12/2025 11:26 AM EDT Primary Care Pharmacy Panel Management This patient has been identified through Specialty Integration/Value-Based Operations Diabetes Registry Review by the primary care pharmacy team. After review, determined that the patient is not a candidate for pharmacy referral at this time dueto questionable attribution. Elizabeth Jennings RPh documented in this encounterAshtabula County Medical Center04-21-2025 NoteHNO ID: [id number] Author: ELIZABETH JENNINGS RPh Service: ? Author Type: Pharmacist Type: Progress Notes Filed: 02/12/2025 11:27 Note Text: Primary Care Pharmacy Panel Management This patient has been identified through Specialty Integration/Value-Based Operations Diabetes Registry Review by the primary care pharmacy team. After review, determined that the patient is not a candidate for pharmacy referral at this time due to questionable attribution. [facility] NotePatient Outreach (PHMEWO) TERRANCE BRAR ([id number]) 1965 F Date Time Provider Department 02/12/25 ELIZABETH JENNINGS During your visit today, we recorded the following information about you: Elizabeth Jnenings RPh 02/12/2025 11:27 AM Signed Primary Care [...] blood sugar THREE TIMES DAILY - Insulin Cheshire, Disposable, (BD ULTRA-FINE BEN PEN NEEDLE) 32 [...] [E04.1] 12/07/2008 Routine General Medical Examination at [facility]*12/10/2008 06/03/2015 Benign neoplasm of colon [D12.6] [...] Breast mass, left [N6 (more content not included)...[facility] 02-06-2025 NotePatient Outreach (FAMPWS) TERRANCE BRAR ([id number]) 1965 F Date Time Provider Department 02/06/25 [...] breast cancer [Z12.31] Order(s):OLIVER SCREENING W MIKE [6369063] Order #: [id number] FUTURE Prescriptions as of 03/09/2025 - dulaglutide [...] blood sugar THREE TIMES DAILY - Insulin [place]hire, Disposable, (BD ULTRA-FINE BEN PEN NEEDLE) 32 [...] [E04.1] 12/07/2008 Routine General Medical Examination at [facility]*12/10/2008 06/03/2015 Benign neoplasm of colon [D12.6] [...] Opioid dependence, continuous (HCC (more content not included)...[facility]04-08-2025 Evaluation note* Diagnosis Onset Date Resolution Status Admit Date 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 acute January 1:52pm Essential hypertension acute Ap ril 2024 1:52pm Hyperlipidemia acute January 30, 2025 1:52pm Chest pain noneactive January 30 1:52pm [facility] Work Phone: [phone]) 854-287904-08-2025 Evaluation note* Diagnosis Onset Date Resolution Status Admit Date 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03-14-2025 NoteHNO ID: [id number] Author: ?, ?, ? Service: ? Author Type: ? Type: Progress Notes Filed: 01/05/2025 13:14 Note Text: Patient is identified through a medication adherence outreach initiative based on pharmacy claims data from: [place] Medication Adherence Category: Statins First Review Attribution Status: Correctly Attributed but Patient in SNF Syeda Markham Value Based Care Pharmacy TeamUniversity [facility]als [facility]03-14-2025 History of Present illness Narrative* Syeda Markham - 01/05/2025 1:13 PM EDT Patient is identified through a medication adherence outreach initiative based on pharmacy claims data from: [place] Medication Adherence Category: Statins First Review Attribution Status: Correctly Attributed but Patient in SNF [facility] Value Based Care Pharmacy Team documented in this encounterAshtabula County Medical Center03-14-2025 NotePatient Outreach (PHPOHE) TERRANCE BRAR ([id number]) 1965 F Date Time Provider Department 01/05/25 DWAYNE LOPEZ PHPOHE During your visit today, we recorded the following information about you: Syeda Markham 01/05/2025 1:14 PM Signed Patient is identified through a medication adherence outreach initiative based on pharmacy claims data from: [place] Medication Adherence Category: Statins First Review Attribution Status: Correctly Attributed but Patient in [facility] Syeda Markham Value Based Care Pharmacy Team [...] blood sugar THREE TIMES DAILY - Insulin [place], Disposable, (BD ULTRA-FINE BEN PEN NEEDLE) 32 [...] [E04.1] 12/07/2008 Routine General Medical Examination at [facility]*12/10/2008 06/03/2015 Benign neoplasm of colon [D12.6] [...] Hyponatremia [E87.1] 09/18/2019 Eczema (more content not included)...[facility]02-05-2025 Note HNO ID: [id number] Author: ASHISH BRAY MA Service: ? Author Type: Pnp Type: Progress Notes Filed: 11/29/2024 14:54 Note [...] Ashish Bray MA November 29, 2024 2:[address] [facility] History of Present illness Narrative* Ashish [...] 29, 2024 2:51 PM documented in this encounterAshtabula County Medical Center02-05-2025 NotePatient Outreach (NETNAV) TERRANCE BRAR ([id number]) 1965 F Date Time Provider Department 11/29/24 [...] blood sugar THREE TIMES DAILY - Insulin [place], Disposable, (BD ULTRA-FINE BEN PEN NEEDLE) 32 [...] [E04.1] 12/07/2008 Routine General Medical Examination at [facility]*12/10/2008 06/03/2015 Benign neoplasm of colon [D12.6] [...] [M65.331] 06/21/2017 Trigger finger, (more content not included)...[facility] 09-08-2024 NoteHNO ID: [id number] Author: IRENA WILD, ? Service: ? 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 Lopez; PCP updated Reason for Outreach Care Gap/HCC or Scheduling Wellness Visits Care Gaps due: N/A Patient Contacted: Unable or unnecessary to reach patient: PCP field updated Navigation Signature: Irena Wild September 08, 2024 10:25 [facility]11-15-2024 History of Present illness Narrative* Irena Wild - 09/08/2024 10:20 AM EST POPULATION HEALTH NAVIGATION OUTREACH Action/I Vinh No PCP Pt is established with Dr. Lopez; PCP updated Reason for Outreach Care Gap/HCC or Scheduling Wellness Visits Care Gaps due: N/A Patient Contacted: Unable or unnecessary to reach patient: PCP field updated Navigation Signature: Irena Wild September 08, 2024 10:25 AM documented in this encounterAshtabula County Medical Center11-15-2024 NotePatient Outreach (NETNAV) TERRANCE BRAR ([id number]) 1965 F Date Time Provider Department 09/08/24 IRENA WILD NETHELEN During your visit today, we recorded the following information about you: Irena Wild 09/08/2024 10:26 AM Addendum POPULATION HEALTH NAVIGATION OUTREACH Action/BELKYSI Vinh No PCP Pt is established with [...] Visit: Population Health Navigation Outreach [3910] Cmt: Brandermill No PCP Prescriptions as of 09/08/2024 - [...] blood sugar THREE TIMES DAILY - Insulin [place], Disposable, (BD ULTRA-FINE BEN PEN NEEDLE) 32 [...] [E04.1] 12/07/2008 Routine General Medical Examination at [facility]*12/10/2008 06/03/2015 Benign neoplasm of colon [D12.6] [...] or gangr*09/04/2019 Lumbar radiculop (more content not included)...[facility] 04-06-2024 History of Present illness Narrative* Mel [...] the ED visit. Pt currently resides @ [facility] and follows a provider @ the facility Placed pt on attrib list for Vinh Patient seen in ED: Out of Network ED Contact made with Patient: Yes The patient was identified by Name and Date of . 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 Routed to: No Action Needed JUAN Education Provided this Outreach: No Mel Peacock RN April 06, 2024 11:01 AM documented in this encounterAshtabula County Medical Center06-04-2024 History of Present illness Narrative* [...] Out of Network ED ER vs to [facility] on 03/24/24 Contact made with Patient: No, [...] call. Patient seen in ED: Out of [facility] ED ER vs to [facility] on 03/24/24 Contact made with Patient: No, left message. Mel Peacock RN March 28, 2024 11:51 AM documented in this encounterAshtabula County Medical Center05-29-2024 Telephone encounter Note * Telephone Encounter - Shonda Valladares LPN - 03/22/2024 2:08 PM EDT Patient scheduled for 04/18/2024 at 1220 with Jesica Mina. Shonda Valladares LPN [facility]05-29-2024 Miscellaneous Notes* Telephone Encounter - [...] 21, 2024 5:24 PM documented in this encounterAshtabula County Medical Center05-28-2024 Telephone encounter Note * Telephone Encounter - Dwayne Lopez MD - 03/21/2024 6:38 PM EDT Patient overdue for OV. Please call to schedule appointment in the next 1 month. . [facility]05-28-2024 Telephone encounter Note* Telephone Encounter [...] Syeda Markham March 21, 2024 5:24 PM [facility]04-25-2024 History of Present illness Narrative* Annabel Agrawal MA - 02/17/2024 7:06 AM EDT POPULATION HEALTH NAVIGATION OUTREACH Action/FYI Patient is on [facility] 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 Workbench list for below [...] 17, 2024 7:07 AM documented in this encounterAshtabula County Medical Center04-18-2024 History of Present illness Narrative* Ariadna Kyle - 02/10/2024 10:45 AM EDT Terrance Brar is identified through a medication adherence outreach initiative based on pharmacy claims data from [employer] (insurer) for Non-insulin DM medication(s). Patient is [...] reconcile dispense Ariadna Kyle documented in this encounterAshtabula County Medical Center04-01-2024 Miscellaneous Notes* Telephone Encounter - Rachel Perea LPN - 01/24/2024 12:59 PM EDT Phoned patient to schedule ER follow up visit. Patient reported she is not able to come in this week due their car is being repaired. Agreed to 02/01/24 at 2pm for 40 min visit. documented in this encounterAshtabula County Medical Center03-28-2024 Discharge summary Author Ellis Peterson [facility] January 20, 2024 4:19am Note Date/Time January 20, 2024 1:2 2am [facility] Medical Records Department [address] [place] [address] Emergency Department Summary 01/20/24 MR#: [id number] Acct: [id number] Name: TERRANCE BRAR Rep #:[id number] : 1965 58 From: Ellis Peterson MD PCP: Dr. Jarred Lopez MD Status :REG ER Location: ED HPI History of Present Illness Chief Complaint: Chest Pain Narrative Narrative: 58-year-old female presents from [facility] with sharp, stabbing chest pain that [...] [facility] that [facility] from [facility] Medical History Anxiety and depression Carpal tunnel [...] for therapy for chronic back pain housing: penitentiary Smoking Status: Former smoker Tobacco: How many [...] for pain and nausea, I reviewed her [facility] paperwork and she has history of chronic pain. She was given 1 oxycodone tablet here and Zofran ODT. As long as her second troponin does not show a large delta troponin, I do feel that she would be able to be discharged back to the [place] [facility]. As her second troponin is 21 and she has a negative delta troponin, I feel she can be discharged to follow-up. Disposition is discharged [place] the [place] [facility] in stable condition. History & Record [...] % (Auto) 58.1 Lymph % (Auto) 34.1 Rincon % (Auto) 5.5 Eos % (Auto) 1.4 [...] 3-5 Days if not improving Disposition Disposition: Custodial Facility Discharge Location: [facility] What to do if you have Problems For any increased pain, shortness of breath, bleeding, nausea or vomiting, chestpain, or any unexpected problems, contact your Primary Care Provider. Call [facility] ([phone]) or report to the closest Emergency Room. Call 911 if necessary. 01/20/24 0415 <Electronically signed by Ellis Peterson MD> Cosigner Signature (if applicable): CC: Dr. Jarred Lopez MD ~ Signed [facility] Work Phone: 1(722) 326-556403-14-2024 History of Present illness Narrative* Rachel Perea LPN - 01/06/2024 1:34 PM EDT TRANSITION CARE MANAGEMENT (TCM) INITIAL CONTACT Pnp Outreach Provider Action/FYI: Initial contact with patient post discharge, spoke to patient. Patient identified by name and . TRANSITION CARE MANAGEMENT INITIAL OUTREACH DOCUMENTATION: 01/06/2024 Date of Outreach: Outreach Attempt 1: Contact Made Date of Discharge 01/05/2024 SUMMARY: -Pt discharged from [facility] on 01/05/24. -Admitted for:1) PE 2)Chest [...] hospitalization: Provider reviewed 01/06/24 documented in this encounterAshtabula County Medical Center03-14-2024 Miscellaneous Notes* Telephone Encounter - Rachel Perea LPN - 01/06/2024 12:57 PM EDT Phoned patient and agreeable with 01/13/24 at 2pm for Hosp F/U documented in this encounterAshtabula County Medical Center03-13-2024 Discharge summary Author Ana Rivera [facility] January 05, 2024 11:34am Note Date/Time January 05, 2024 11: 34am [facility] Medical Records Department [address] [place] [address] Transfer to [facility] MR#: [id number] Acct: [id number] Name: TERRANCE BRAR Rep #:[id number] : 1965 58 From: Ana Rivera DO PCP: Dr. Jarred Lopez MD Status :ADM HOMER Certification of patient admission REQUIRED AT TIME OF ADMISSION. I CERTIFY THAT POST-HOSPITAL ECF SERVICES ARE REQUIRED TO BE GIVEN ON AN IN-PATIENT BASIS BECAUSE OF THE ABOVE NAMED PATIENT'S NEED FOR LONG-TERM CARE ON A CONTINUING BASIS FOR THE CONDITION(S) FOR WHICH HE/SHE WAS RECEIVING IN-PATIENT HOSPITAL SERVICES PRIOR TO HIS/HER TRANSFER TO THE [facility]. 01/05/24 1134<Electronically signed by Ana Rivera DO> [...] weeks Please Follow Up With: Miriam Cameron INSTRUMENT MAN, INSTRUMENT MAN-C When: 1 month Discharge Plan Admission Admit [...] MD [Primary Care Provider] - Miriam Cameron INSTRUMENT MAN, INSTRUMENT MAN-C [Non-Staff -Ordering Privileges] - Within 1 Month (CAD follow up) Disposition Disposition (needs filled in before D/C Order can be placed): Custodial Facility 01/05/24 1134 <Electronically signed by Ana Rivear DO> Cosigner Signature (if applicable): CC: Dr. Chavez Alcala DO; Dr. Hansa Cast MD; Dr. Jarred Lopez MD ~ [facility] Work Phone: 1(528) 722-105803-13-2024 Discharge summary Author Ana [facility] January 05, 2024 11:32am Note Date/Time January 05, 2024 11: 17am [facility] Medical Records Department [address] [place] [address] Discharge Summary 01/05/24 1116 MR#: [id number] Acct: [id number] Name: TERRANCE BRAR Rep #:[id number] : 1965 58 From: Ana Rivera DO PCP: Dr. Jarred Lopez MD Status :ADM HOMER Location: [place] [address] Providers Date of Admission: 01/01/24 Date of [...] who presented to the emergency department at [facility] from [facility] [place] [facility] for acute onset chest pain with [...] since she has followed up with her merchandise manager. She was strongly encouraged to continue incentive [...] given w/in hospital stay or rx'd at nv?: No Pt receive overlap for 5 days?: [...] [Primary Care Provider] - Miriam Cameron NP, INSTRUMENT MAN-C [Non-Staff -Ordering Privileges] - Within 1 Month (CAD follow up) Disposition Disposition (needs filled in before D/C Order can be placed): Custodial Facility Charges/Coding Visit Charges Inpatient E&M: 74982 SNF Disch >30 Min 01/05/24 1132 <Electronically signed by Ana Rivera DO> Cosigner Signature (if applicable): CC: INSTRUMENT MAN-C Miriam Cameron; Dr. Jarred Lopez MD; Dr. Ana Rivera DO~ Signed [facility] Work Phone: 1(608) 838-456603-12-2024 Progress note Author Ana Rivera [facility] January 04, 2024 4:59pm Note Date/Time January 04, 2024 5:0 0pm [facility] Medical Records Department [address] [place] [address] Progress Note - Hospitalist 01/04/24 1655 MR#: [id number] Acct: [id number] Name: TERRANCE BRAR Rep #:[id number] : 1965 58 From: Ana Rivera DO PCP: Dr. Jarred Lopez MD Status :ADM HOMER Location: [place] [address] Reason for Visit Reason for Visit: Chest [...] 01/04/24 15:00 01/04/24 15:00 01/04/24 15:00 01/04/24 15:01/03/24 22:31 Oxygen Flow Rate (L/min) 2 Oxygen [...] % (Auto) 60.6, Lymph % (Auto) 31.0, Rincon % (Auto) 5.1, Eos % (Auto) 1.3, [...] -Plan is discharge back to skilled facility ([facility] once pre-CERT is obtained -Patient is medically [...] is obtained Charges/Coding Visit Charges Inpatient E&M: 36574 Subs Hosp L2 01/04/24 8967 <Electronically signed by Ana Rivera DO> Cosigner Signature (if applicable): CC: ~ Signed [facility] Work Phone: 1(919) 274-364603-11-2024 Progress note Author Ana Rivera [facility] January 03, 2024 7:27pm Note Date/Time January 03, 2024 7:1 3pm [facility] Medical Records Department [address] [place] [address] Progress Note - Hospitalist 01/03/24 190 MR#: [id number] Acct: [id number] Name: TERRANCE BRAR Rep #:[id number] : 1965 58 From: Ana Rivera DO PCP: Dr. Jarred Lopez MD Status :ADM HOMER Location: [place] [address] Reason for Visit Reason for Visit: Chest pain Subjective Subjective Ms. Brar is a 58-year-old white female who presented to the emergency department at [facility] from her [place] [facility] for acute onset chest pain with [...] -Plan is discharge back to skilled facility ([facility]) once pre-CERT is obtained -Patient is medically [...] is obtained Charges/Coding Visit Charges Inpatient E&M: 62226 Subs Hosp L2 01/03/241926 <Electronically signed by Ana Rivera DO> Cosigner Signature (if applicable): CC: ~ Signed [facility] Work Phone: 1(127) 620-745703-10-2024 Progress note Author Chavez Alcala [facility] January 02, 2024 4:34pm Note Date/Time January 02, 2024 12: 04pm [facility] Medical Records Department [facility] [place] [address] [place] [address] Progress Note - Hospitalist 01/02/24 1204 MR#: [id number] Acct: [id number] Name: TERRANCE BRAR Rep #:[id number] : 1965 58 From: Chavez mayo DO PCP: Dr. Jarred Lopez MD Status :ADM HOMER Location: [place] [address] Reason for Visit Reason for Visit: Diagnoses [...] % (Auto) 66.7, Lymph % (Auto) 26.5, Rincon % (Auto) 4.7, Eos % (Auto) 0.8, [...] % (Auto) 60.2, Lymph % (Auto) 31.4, Rincon % (Auto) 5.2, Eos % (Auto) 1.1, [...] Signed: Anam Zimmer MD at 22:04 EST Reading Location ID and State: [id number] / Health in Reach Tel , Service support , Physical Exam Const alert and no [...] is a 58-year-old female who presented to [facility] ED on 01/01/2024 from SNF [...] back pain ? Patient recently hospitalized at [facility] from 11/19-11/24. Was noted to have fairlysevere deconditioning during that hospitalization that apparently was worsened by her chronic back pain. Was discharged to SNF at that time. Has remained at that SNF ([facility]) since then and suspect that she has [...] Full code, verified Expected disposition: Back to [facility], 1 to 2 days Total clinical time spent by myself addressing the patient's medical issues, reviewing all the data, and collaborating with patient's care team: 35 minutes. 01/02/24 1634 <Electronically signed by Chavez Alcala DO> Cosigner Signature (if applicable): CC: ~ Signed [facility] Work Phone: 1(707) 130-532003-10-2024 History and physical note Author Hansa Cast [facility] January 01, 2024 11:38pm Note Date/Time January 01, 2024 10:3 2pm [facility] Medical Records Department [address] [place] [address] H&P Exam - Hospitalist 01/01/245 MR#: [id number] Acct: [id number] Name: TERRANCE BRAR Rep #:[id number] : 1965 58 From: Hansa Cast MD PCP: Dr. Jarred Lopez MD Status :ADM HOMER Location: [place] [address] HPI - General General Date of Admission: [...] prior opiate abuse who presents to the [facility] ED on 01/01/2024 with history of [...] therapeutic 80 mg subcu regimen x 1. [facility] Medical History (Updated 01/01/24 @ [...] for therapy for chronic back pain housing: penitentiary Smoking Status: Former smoker Tobacco: How many [...] % (Auto) 66.7, Lymph % (Auto) 26.5, Rincon % (Auto) 4.7, Eos % (Auto) 0.8, [...] prior opiate abuse who presents to the [facility] ED on 01/01/2024 with history of [...] Code status. Charges/Coding Visit Charges Inpatient E&M: 35782 Init Hosp L3 01/01/24 1354 <Electronically signed by Hansa Cast MD> Cosigner Signature (if applicable): CC: Dr. Hansa Cast MD; Dr. Jarred Lopez MD~ Signed [facility] Work Phone: 1(923) 975-803203-10-2024 Discharge summary Author Raisa Mc [facility] January 01, 2024 10:58pm Note Date/Time January 01, 2024 6:48 pm [facility] Medical Records Department [address] [place] [address] Emergency Department Summary 01/01/24 MR#: [id number] Acct: [id number] Name: TERRANCE BRAR Rep #:[id number] : 1965 58 From: Raisa Mc MD [...] been ongoing for the past several days. [facility] Medical History Carpal tunnel syndrome Chronic [...] for therapy for chronic back pain housing: penitentiary Smoking Status: Former smoker Tobacco: How many [...] Medical decision making narrative: Patient placed on premium service representative. IV line initiated. EKG obtained to evaluatefor [...] % (Auto) 66.7 Lymph % (Auto) 26.5 Rincon % (Auto) 4.7 Eos % (Auto) 0.8 [...] Provider] - Disposition Disposition: Acute Care Hospital [facility] What to do if you have Problems For any increased pain, shortness of breath, bleeding, nausea or vomiting, chestpain, or any unexpected problems, contact your Primary Care Provider. Call [facility] ([phone]) or report to the closest Emergency Room. Call 911 if necessary. 01/01/24 4708 <Electronically signed by Raisa Mc MD> Cosigner Signature (if applicable): CC: Dr. Jarred Lopez MD ~ Signed [facility] Work Phone: 1(531) 428-498203-09-2024 Discharge summary Author Raisa Mc [facility] January 01, 2024 10:58pm Note Date/Time January 01, 2024 6:48 pm [facility] Medical Records Department [address] [place] [address] Emergency Department Summary 01/01/24 MR#: [id number] Acct: [id number] Name: TERRANCE BRAR Rep #:[id number] : 1965 58 From: Raisa Mc MD [...] been ongoing for the past several days. [facility] Medical History Carpal tunnel syndrome Chronic [...] for therapy for chronic back pain housing: penitentiary Smoking Status: Former smoker Tobacco: How many [...] Medical decision making narrative: Patient placed on premium service representative. IV line initiated. EKG obtained to evaluatefor [...] % (Auto) 66.7 Lymph % (Auto) 26.5 [place]in[place] % (Auto) 4.7 Eos % (Auto) 0.8 [...] Provider] - Disposition Disposition: Acute Care Hospital [facility] What to do if you have Problems For any increased pain, shortness of breath, bleeding, nausea or vomiting, chestpain, or any unexpected problems, contact your Primary Care Provider. Call [facility] ([phone]) or report to the closest Emergency Room. Call 911 if necessary. 01/01/24 2316 <Electronically signed by Raisa Mc MD> Cosigner Signature (if applicable): CC: Dr. Jarred Lopez MD ~ Signed [facility] Work Phone: 1(243) 570-573911-27-2023 History of Present illness Narrative* Ariadna Kyle - 09/20/2023 8:48 AM EST Terrance Brar is identified through a medication adherence outreach initiative based on pharmacy claims data from [email or web address] (insurer) for Statin medication(s). Patient is reviewed [...] Left message Ariadna Kyle documented in this encounterAshtabula [facility] Center10-27-2023 History of Present illness Narrative* Sharonda Sanchez - 08/20/2023 4:22 PM EDT Terrance Brar is identified through a medication adherence outreach initiative based on pharmacy claims data from [email or web address] (insurer) for Non-insulin DM medication(s) and Statin [...] Both were out of refill Sharonda Sanchez Document Preparation Specialist documented in this encounterAshtabula County Medical Center10-25-2023 Miscellaneous Notes* Telephone Encounter - [...] Time Provider Department Center 08/26/2023 1:40 PM PodJesica park APRN.GLUE REEL OPERATOR [facility] Please review and refill if appropriate. Thank you. Sharonda Sanchez August 18, 2023 4:11 PM documented in this encounterAshtabula County Medical Center10-25-2023 History of Present illness Narrative* [...] Care Gap or Scheduling/Wellness visits Payer: Payor: [employer] / Plan: [employer] HMO / Product Type: HMO / Care [...] 18, 2023 7:58 AM documented in this encounterAshtabula County Medical Center08-31-2023 Miscellaneous Notes* Telephone Encounter - [...] ER follow up visit. documented in this encounterAshtabula County Medical Center08-17-2023 Miscellaneous Notes* Telephone Encounter - Miguel Ángel Santoyo LPN - 06/10/2023 1:50 PM EDT Pt notified of Dr Lopez's message. Pt verbalizes understanding. Advises that she will go to [facility] as instructed. Miguel Ángel Santoyo LPN [...] one hour ago. She saysssangeeta was in [facility] on 06/04 with abdominal pain and received morphine. She states she has abdominal andrectal pain / mostly when she is straining to have [...] water/day 8. MEDICATIONS: Says she was in [facility] ER on 06/04 with abdominal pain [...] hemorrhoids, rectal surgery, rectal fissure Protocols used: [id number] documented in this encounterAshtabula County Medical Center08-13-2023 Discharge summary Author Raúl Alejo [facility] June 06, 2023 10:50pm Note Date/Time June 06, 2023 6: 00pm [facility] Medical Records Department [address] [place] [address] Emergency Department Summary 06/06/23 MR#: [id number] Acct: [id number] Name: TERRANCE BRAR Rep #:[id number] : 1965 57 From: Bronson Retana MD [...] for therapy for chronic back pain housing: penitentiary Smoking Status: Former smoker Tobacco: How many [...] (Auto) 50.5 Lymph % (Auto) 44.0 H Rincon % (Auto) 3.3 Eos % (Auto) 0.9 [...] 2 patch TOPICAL DAILY Patient Comments: PER LONG-TERM MAR PT GETS 2 PATCHES APPLIED TO [...] your Primary Care Provider. Call [facility] ([phone]) or report to the closest Emergency Room. Call 911 if necessary. 06/06/232237 <Electronically signed by Bronson Retana MD> Cosigner Signature (if applicable): CC: Dr. Jarred Lopez MD ~ Signed [facility] Work Phone: 1(760) 244-931208-11-2023 Discharge summary Author Bronson Retana [facility] June 04, 2023 9:29pm Note Date/Time June 04, 2023 5: 36pm [facility] Medical Records Department [address] [place] [id number] Emergency Department Summary 06/04/23 MR#: [id number] Acct: [id number] Name: TERRANCE BRAR Rep #:[id number] : 1965 57 From: Bronson Retana MD [...] for therapy for chronic back pain housing: penitentiary Smoking Status: Former smoker Tobacco: How many [...] % (Auto) 55.4 Lymph % (Auto) 39.6 Rincon % (Auto) 3.2 Eos % (Auto) 0.5 [...] Clarity Clear Urine pH 6.5 Ur Specific [place] 1.010 Urine Protein 30 H Urine Glucose [...] 2 patch TOPICAL DAILY Patient Comments: PER LONG-TERM MAR PT GETS 2 PATCHES APPLIED TO [...] your Primary Care Provider. Call [facility] ([phone]) or report to the closest Emergency Room. [...] cc: Dr. Jarred Lopez MD ~* Signed [facility] Work Phone: 1(388) 486-994308-11-2023 Hospital Discharge instructions Additional Instructions No specific [...] 3 to 5 days. Return if feeling worse.[facility] Work Phone: [phone]) 434-826507-31-2023 Miscellaneous Notes* Telephone Encounter - Lubna Montgomery [...] Department Center 07/09/2023 1:00 PM Jesica Mina APRN.[facility] Please review and refill if appropriate. Thank you. Debra Greer May 20, 2023 2:17 PM documented in this encounterAshtabula County Medical Center07-27-2023 History of Present illness Narrative* Debra Greer - 05/20/2023 2:14 PM EDT Terrance Brar is identified through a medication adherence outreach initiative based on pharmacy claims data from [email or web address] (insurer) for Non-insulin DM medication(s) and Statin [...] refills remaining Debra Greer documented in this encounterAshtabula County Medical Center07-11-2023 History of Present illness Narrative* Ariadna Kyle - 05/04/2023 2:13 PM EDT Terrance Brar is identified through a medication adherence outreach initiative based on pharmacy claims data from [employer] (insurer) for Non-insulin DM medication(s) and Statin [...] no answer Ariadna Kyle documented in this encounterAshtabula County Medical Center06-30-2023 History of Present illness Narrative* Vernon Degroot, JAMIE.GLUE REEL OPERATOR - 04/23/2023 2:50 PM EDT Images [...] 2 diabetes mellitus (HCC) 03/12/2015 Hyperparathyroidism, unspecified ([facility]) 10/24/2008 Hypothyroidism 03/12/2015 Lumbar degenerative disc disease [...] 2 diabetes mellitus with neurological manifestations ([facility]) 02/27/2016 PAST SURGICAL HISTORY Procedure Laterality [...] test blood sugar THREE TIMES DAILY Insulin [place], Disposable, (BD ULTRA-FINE BEN PEN NEEDLE) 32 [...] and atraumatic. Nose: Nose normal. Mouth/Throat: Lips: [place]. Mouth: Mucous membranes are moist. Pharynx: Uvula [...] CLINDAMYCIN HCL 300 MG CAPSULE Vernon Degroot APRN.GLUE REEL OPERATOR documented in this encounterAshtabula County Medical Center06-15-2023 History of Present illness Narrative* [...] Care Gap or Scheduling/Wellness visits Payer: Payor: [employer] / Plan: [employer] HMO / Product Type: HMO / Care [...] 08, 2023 1:51 PM documented in this encounterAshtabula County Medical Center06-14-2023 Miscellaneous Notes* Telephone Encounter - [...] office. Mariama Sandoval MA documented in this encounterAshtabula County Medical Center06-14-2023 History of Present illness Narrative* Dwayne Lopez MD - 04/07/2023 1:18 PM EDT Chief Complaint Patient presents with: SNF d/c follow up HPI Jenniferneil Brar is a 57 year old female who presents here today for Above Complaints.. Patient had been a resident of [facility] since 03/2022 with discharge on 03/25. [...] for handicap placard. Patient also evaluated at [facility] ED on 03/28 for constipation [...] test blood sugar THREE TIMES DAILY Insulin [place], Disposable, (BD ULTRA-FINE BEN PEN NEEDLE) 32 [...] which included preparing to see the patient, [id number] patient care, completing clinical documentation, obtaining and/or reviewing separately obtained history, performing a medically appropriate examination, counseling and educating the pat ient/family/caregiver, and ordering medications, tests, or procedures. Dwayne Lopez MD documented in this encounterAshtabula County Medical Center05-31-2023 History of Present illness Narrative* Dwayne Lopez MD - 03/24/2023 10:23 AM EDT Chief Complaint Patient presents with: [facility] Care HPI Terrance Brar is a 57 year old female who presents here today for Above Complaints. Accompanied today by her Shan. Patient has been a resident of [facility] since 03/2022 and is planning on being discharged tomorrow. States that she was admitted initially for weakness and inability to walk. This was attributed to her uncontrolled DM. Required 11 months of PT. I have not received any records from [facility] as of yet. Patient has paperwork today [...] finger releases INCISE FINGER TENDON SHEATH Left [id number] Left index and middle trigger finger releases [...] test blood sugar THREE TIMES DAILY Insulin [place], Disposable, (BD ULTRA-FINE BEN PEN NEEDLE) 32 [...] care visit. Will request [facility] along with labs obtained 1-2 weeks ago. Dwayne Lopez MD documented in this encounterAshtabula County Medical Center05-02-2023 History of Present illness Narrative* Sharonda Sanchez - 02/23/2023 2:40 PM EDT Terrance Brar is identified through a medication adherence outreach initiative based on pharmacy claims data from [employer] (insurer) for Non-insulin DM medication(s) and Statin [...] and per call to patient/caregiver Sharonda Sanchez Document Preparation Specialist documented in this encounterAshtabula County Medical Center03-20-2023 History of Present illness Narrative* [...] Terrance Brar is identified through data from [employer] (insurer) as a potential candidate for statin [...] associated with type 2 diabetes mellitus ([facility]) 03/12/2015 Hyperparathyroidism, unspecified ([facility]) 10/24/2008 Hypothyroidism 03/12/2015 Lumbar degenerative disc disease [...] 2 diabetes mellitus with neurological manifestations ([facility]) 02/27/2016 Cholesterol, Total (mg/dL) Date Value 12/28/2017 [...] Burr RPh PharmD BCACP documented in this encounterAshtabula County Medical Center03-16-[address] Retana [facility] January 07, 2023 4:15pm Note Date/Time January 07, 2023 4:0 7pm [facility] Medical Records Department [address] [place] [address] Emergency Department Summary 01/07/23 MR#: [id number] Acct: [id number] Name: TERRANCE BRAR Rep #:[id number] : 1965 57 From: Bronson Retana MD [...] dysuria or hematuria. She was written for [place] for pain they told her she could [...] for therapy for chronic back pain housing: penitentiary Smoking Status: Former smoker Tobacco: How many [...] tract infection. A prescription was written for [place] which they would not let her take at the penitentiary. She can take Percocet. She will get [...] 2 patch TOPICAL DAILY Label Comments: PER LONG-TERM MAR PT GETS 2 PATCHES APPLIED TO [...] not improving Activity Restrictions/Additional Instructions: Discard the [place] prescription. Patient has used Percocet before in the past and should be fine with this for pain. Follow-up with your doctor if not improving. Disposition Disposition: Home, Self Care What to do if you have Problems For any increased pain, shortness of breath, bleeding, nausea or vomiting, chestpain, or any unexpected problems, contact your Primary Care Provider. Call [facility] ([phone]) or report to the closest Emergency Room. Call 911 if necessary. 01/07/23 1615 <Electronically signed by Bronson Retana MD> Cosigner Signature (if applicable): CC: Dr. Lizet Linares MD ~ Signed [facility] Work Phone: 1(351) 295-967607-02-2022 Evaluation note* Diagnosis Onset Date Resolution Status Chest pain acute Chronic renal failure, stage 3a acute Elevated troponin acute History of diabetes mellitus acute Hyperlipidemia acute Normochromic normocytic anemia acute Obesity (BMI 35.0-39.9 without comorbidity) acute Opiate abuse, continuous acu te Chronic back pain chronic Depressive disorder chronic [facility] Work Phone: [phone]) 489-431806-10-2022 History of Present illness Narrative* Shital Patel MA - 04/03/2022 12:54 PM EDT POPULATION HEALTH NAVIGATION OUTREACH Action/FYI Patient is on [facility] list for below gaps and needs appt to address : 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
E11.69 - Hyperlipidemia associated with type 2 diabetes mellitus (HCC) - [id number] Last Billed 12/26/2019
E21.3 - Hyperparathyroidism ([facility]) - [id number] Last Billed 09/18/2019
patient also due for [...] HCC or suspected condition Payer: Payor: V[employer] / Plan: VINH [employer] HMO / Product Type: HMO / Care [...] 03, 2022 12:55 PM documented in this encounterAshtabula County Medical Center09-29-2015 History of Past illness Narrative* Problem Noted Date Resolved Date Trigger thumb of left hand 07/23/201501/27 Carpal tunnel syndrome, left 05/27/201502/2017 Carpal tunnel syndrome, right 05/27/2015 Constipation 03/12/2015 06/03/2015 Anemia 03/12/2015 02/27/2016 Abdominal pain, right upper quadrant 06/05/2014 06/03/2015 Abdominal pain, epigastric 05/15/201406/03 Routine General Medical Exam ination at a Health Care Facility 12/10/2008 06/03/2015 Overview: HCT 37.6% in 1-09, 37.4% in -, 37% in -, 42% in - EDMUNDO in 03-[address] Mckeon: no [...] of this encounter (statuses as of 04/03/2022) [facility] History of Past illness Narrative* [...] of this encounter (statuses as of 01/21/2023) [facility] History of Past illness Narrative* [...] of this encounter (statuses as of 02/24/2023) [facility] History of Past illness Narrative* [...] of this encounter (statuses as of 03/24/2023) [facility] History of Past illness Narrative* [...] of this encounter (statuses as of 04/07/2023) [facility] History of Past illness Narrative* [...] of this encounter (statuses as of 04/08/2023) [facility] History of Past illness Narrative* [...] of this encounter (statuses as of 04/12/2023) [facility] History of Past illness Narrative* Problem Noted Date Resolved Date Trigger thumb of left hand 07/23/201501/27 Carpal tunnel syndrome, left 05/27/201502/2017 Carpal tunnel syndrome, right 05/27/2015 Constipation 03/12/2015 06/03/2015 Anemia 03/12/2015 02/27/2016 Abdominal pain, right upper quadrant 06/05/2014 06/03/2015 Abdominal pain, epigastric 05/15/201406/03 Routine General Medical Exam ination at a [facility] Care [facility] 12/10/2008 06/03/2015 Overview: HCT 37.6% in 11-02, 37.4% in 12-31, 37% in 03-02, 42% in 07-03 EDMUNDO in 03-[address] Mckeon: no details of surgery as per note from [facility] for DM mgmt ED for L ankle [...] of this encounter (statuses as of 04/23/2023) [facility] of Past illness Narrative* [...] of this encounter (statuses as of 05/05/2023) [facility] of Past illness Narrative* [...] of this encounter (statuses as of 05/20/2023) [facility] of Past illness Narrative* [...] of this encounter (statuses as of 05/24/2023) [facility] of Past illness Narrative* [...] of this encounter (statuses as of 06/10/2023) [facility] of Past illness Narrative* [...] of this encounter (statuses as of 06/30/2023) [facility] of Past illness Narrative* [...] of this encounter (statuses as of 08/18/2023) [facility] of Past illness Narrative* [...] of this encounter (statuses as of 08/19/2023) [facility] of Past illness Narrative* [...] of this encounter (statuses as of 08/20/2023) [facility] of Past illness Narrative* [...] of this encounter (statuses as of 09/20/2023) [facility] of [facility] illness Narrative* [...] of this encounter (statuses as of 01/06/2024) [facility] of [facility] illness Narrative* [...] of this encounter (statuses as of 01/25/2024) [facility] of [facility] illness Narrative* [...] of this encounter (statuses as of 02/07/2024) [facility] of Past illness Narrative* [...] of this encounter (statuses as of 02/10/2024) [facility] CenterDischarge summary Author Raúl Alejo [facility] Note Date/Time May 26, 2025 5:4 4am [facility] Medical Records Department [address] [place] [address] Emergency Department Summary 05/26/25 MR#: [id number] Acct: [id number] Name: TERRANCE BRAR Rep #:[id number] : 1965 59 From: Raúl Brooks PCP: Dr. 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 It may contain incorrectwords, spelling, [...] % (Auto) 67.7 Lymph % (Auto) 24.6 [place] % (Auto) 6.3 Eos % (Auto) 0.6 [...] constipation) bisacodyl 10 mg suppository 10 mg MS DAILY PRN (Reason: constipation) Trulicity 3 mg/0.5 [...] to the ED for reevaluation. Print Language: Gibraltarian Disposition Disposition: Home, Self Care What to do if you have Problems For any increased pain, shortness of breath, bleeding, nausea or vomiting, chestpain, or any unexpected problems, contact your Primary Care Provider. Call [facility] ([phone]) or report to the closest Emergency Room. Call 911 if necessary. 05/26/25 0544 <Electronically signed by Raúl Brooks> Cosigner Signature (if applicable): CC: Dr. 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 HTN (hypertension) chronic Pure hypercholesterolemia ch ronic [facility] Work Phone: Evaluation note* Diagnosis Onset Date Resolution Status Chest pain resolved [facility] Work Phone: Evaluation note* Diagnosis Onset Date Resolution Status Chest pain resolved Diabetes acute Nonspecific chest pain acute Renal insufficiency acute [facility] Work Phone: Evaluation note* Diagnosis Onset Date Resolution Status Chest pain resolved Diabetes acute Hypothyroidism acute Nonspecific chest pain acute Renal insufficiency acute [facility] Work Phone: Evaluation note* Diagnosis Onset Date Resolution Status Hyperlipidemia acute Chest pain resolved Hypothyroidism acute Nonspecific chest pain resol shirley 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 acute Chest pressure acute Dizziness acute Dyspnea acute Essential hypertension acute Hyperlipidemia acute [facility] Work Phone: Evaluation note* Diagnosis Onset Date Resolution Status Hypothyroidism acute Nonspecific chest pain resol shirley 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 acute Chest pressure acute Dizziness acute Dyspnea acute Essential hypertension acute Hyperlipidemia acute [facility] Work Phone: Evaluation note* Diagnosis Onset Date Resolution Status 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 acute Chest pressure acute Dizziness acute Dyspnea acute Essential hypertension acute Hyperlipidemia acute 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 acute Bilateral lower extremity edema acute Essential hypertension acute Hyperlipidemia acute [facility] Work Phone: Evaluation note* Diagnosis Onset Date Resolution Status 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 acute Bilateral lower extremity edema acute Essential hypertension acute Hyperlipidemia acute [facility] Work Phone: Evaluation note* Diagnosis Globus sensation- Primary Gastrointestinal malfunction arising from mental factors Gastroesophageal reflux disease, unspecified whether esophagitis present documented in this encounter [facility]* Diagnosis Onset Date Resolution Status 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 acute Bilateral lower extremity edema acute Essential hypertension acute Hyperlipidemia acute Palpitations acute [facility] Work Phone: Evaluation note* Diagnosis [...] type dependence, continuous [facility] Diagnosis Toothache- Primary Unspecified disorder of the teeth and supporting structures documented in this encounter [facility]* Diagnosis Onset Date Resolution Status Acute leg pain acute Diabetes mellitus with hyperglycemia acute Diarrhea acute Nausea acute [facility] Work Phone: Evaluation note* Diagnosis Onset Date Resolution Status Diarrhea acute Acute leg pain resolved Diabetes mellitus with hyperglycemia resolved Nausea resolved Pulmonary emboli acute [facility] Work Phone: Evaluation note* Diagnosis Onset Date Resolution Status Diarrhea acute Acute leg pain resolved Diabetes mellitus with hyperglycemia resolved Nausea resolved Chest pressure acute Pulmonary emboli acute [facility] Work Phone: Evaluation note* Diagnosis Onset Date Resolution Status Diarrhea acute Acute leg pain resolved Diabetes mellitus with hyperglycemia resolved Nausea resolved Chest pressure acute [facility] Work Phone: Evaluation note* Diagnosis Encounter for screening mammogram for breast cancer documented [facility]* Diagnosis Pre-operative examination- Primary Preoperative examination, [...] for breast cancer documented in this encounter [facility] CenterHistory and physical note Author John Shaw [facility] November 19, 2023 11:02am Note Date/Time November 19, 2023 1 0:38am [facility] Medical Records Department [address] [place] [address] H&P Exam - Hospitalist 11/19/23 1037 MR#: [id number] Acct: [id number] Name: TERRANCE BRAR Rep #:[id number] : 1965 58 From: John Shaw MD PCP: Dr. Jarred Lopez MD Status :ADM HOMER Location: [facility] [id number] HPI - General General Date of Admission: [...] admittedto regular nursing floor for further management [facility] Medical History Carpal tunnel syndrome [...] for therapy for chronic back pain housing[facility] Smoking Status: Former smoker Tobacco: How many [...] % (Auto) 59.6, Lymph % (Auto) 35.7, [place]% (Auto) 3.3, Eos % (Auto) 0.4, Baso [...] Sl. Cloudy, Urine pH 6.0, Ur Specific [place] 1.015, Urine Protein 30 H, Urine Glucose [...] - Requested for PT OT eval and mental health social worker to assist with discharge planning 12. DVT [...] documentation, 75Minutes Charges/Coding Visit Charges Inpatient E&M: 92096 Init Hosp L3 Procedures Hospitalists Procedures: 91337 Advncd Care Plan addl 30 Min 11/19/23 1102 <Electronically signed by John Shaw MD> Cosigner Signature (if applicable): CC: Dr. Jarred Lopez MD; Dr. John Shaw MD~ Signed [facility] Work Phone: History and physical note Author Chavez Alcala [facility] Note Date/Time May 28, 2025 12: 16pm [facility] Medical Records Department [address] [place] [address] H&P Exam - Hospitalist 05/28/25 1134 MR#: [id number] Acct: [id number] Name: TERRANCE BRAR Rep #:[id number] : 1965 59 From: Chavez mayo DO PCP: Dr. Lizet Linares MD Status:A DM IN Location: NE3 [id number] HPI - General General Date of Admission: 05/28/25 Date of Service: 05/28/25 Chief Complaint: Worsening upper lip wound with surrounding cellulitis HPI Narrative TERRANCE BRAR, is a 59 F who presented to [facility] ED on 05/28/25 with worsening upper lip wound with surrounding cellulitis. Patient lives at [facility]. She initially came to the ED [...] discomfort. Will be admitted for further management. 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 1. Right upper lip swelling with cellulitis and failed outpatient antibiotics ? [facility]. Presentation consistent with cellulitis secondary to [...] 3. Chronic debility ? Has lived at [facility] for the past 1.5 years. Will [...] Full code, verified Expected disposition: Back to [facility], 2 to 3 days Total clinical time spent by myself addressing the patient's medical issues, reviewing all the data, and collaborating with patient's care team: 75 minutes. Charges/Coding Visit Charges Inpatient E&M: 43003 Init Hosp L3 05/28/25 1216 <Electronically signed by Chavez Alcala DO> Cosigner Signature (if applicable): CC: Dr. Chavez Alcala DO; Dr. Lizet Linares MD~ Signed [facility] Work Phone: [phone] Discharge instructions Additional Instructions Your MRI today showed some mild disc disease of L3 and L4. The thoracic spine was fine. There is no compression of your spinal cord. Nothing needs to be done acutely. Motrin and Tylenol for pain. Follow-up with your primary care physician.[facility] Work Phone: [phone] Work Phone: [phone] Dis[facility] instructions[facility] Work Phone: [facility] Dis[facility] instructions[facility] Work Phone: [facility] Dis[facility]WM[facility] Work Phone: [facility] Dis[facility] Work Phone: [facility] Dis[facility] instructions[facility] Work Phone: [phone] Dis[facility] instructionsWM[facility] Work Phone: [facility] instructionsFair[facility] Work Phone: [facility]WM[facility] Work Phone: [facility] Work Phone: [facility] Dis[facility] instructionsWM[facility] Work Phone: [phone] Discharge instructions Additional Instructions Your work-up today does not show a kidney stone bowel obstruction or acute appendicitis. It does demonstrate urinary tract infection but at this time it is not causing kidney damage or moving in your bloodstream. Therefore take the antibiotic as directed to help resolve your infection and return to the ER should you have any further concerns.[facility] Work Phone: Hospital Discharge instructions Additional Instructions Discard the [place] prescription. Patient has used Percocet before in the past and should be fine with this for pain. Follow-up with your doctor if not improving.[facility] Work Phone: Hospital Discharge instructions Additional Instructions Increase fiber in your diet. Take an [id number]-[id number] stool softener.[facility] Work Phone: Hospital Discharge instructions Additional Instructions Watch her blood sugars very closely. Take your medications as prescribed. Recheck your blood sugar prior to going to bed tonight Call and follow-up your primary care physician this coming week.[facility] Work Phone: Hospital Discharge instructionsAdditional Instructions Upper lip infection. Blood work normal white count 9.9. You are given clindamycin IV. 18-gauge needle for needle decompression there is no exudative drainage. Taking finish antibiotic prescribed. Pain medicines as needed. Follow-up with Dr. Whatley. If you develop worsening symptoms or fevers, return to the ED for reevaluation.[facility] Work Phone: Progress note Author Rosa Maria Hagan [facility] Note Date/Time July 17, 2025 9:22am [facility] [address] [place] [address]. [address] [place] [address] OFFICE VISIT Date of Service: 07/17/25 MR#: [id number] Acct: [id number] Name: TERRANCE BRAR Rep #: [id number] : 1965 Provider: Dr. James Hagan MD Age/Sex: 59/F Location: [facility] Status: Signed Intake Vital Signs 06/15/25 13:43 [...] bisacodyl 10 mg rectal suppository 10 mg MS DAILY PRN constipation 08/19/24 07/17/25 History fenofibrate [...] QWEEK 06/07/25 07/17/25 History subcutaneous pen injector (Mounjaro) oxycodone-acetaminophen 5 mg-325 1 tab PO TID [...] for therapy for chronic back pain housing: penitentiary Smoking Status: Former smoker Tobacco: How many [...] General: cooperative, comfortable and no acute distress HENMT Head: normocephalic and atraumatic Neck Neck: supple [...] questions time. Rosa Maria Hagan M.D. Pager: [phone] [facility] [address] [place] [address], [address] [place] [address] Office: [phone] Coding Level of Care Code Off vis,new,level 4 Diagnoses Ventral hernia without obstruction or gangrene K43.9 07/17/25 1321 <Electronically signed by Rosa Maria Iraheta am, MD> Date _ Rosa Maria Hagan MD Cosigner Signature: Date (if applicable) CC: Dr. Lizet Linares MD ~ [facility] Work Phone: [employer] for referral (narrative)* Diagnostic Procedure Only (Routine) - Pending Review Specialty Diagnoses / Procedures Referred By Mamta t Referred To Contact [facility] Diagnoses Encounter for screening mammogram for breast cancer Procedures OLIVER SCREENING SCREENING MAMMOGRAPHY BI 2-VIEW BREAST INC CAD Dwayne Lopez MD [address] [place] [address] [facility] [address] [place] [address] Referral ID Status Reason Start Date Expiration Date Visits Requested Visits Authorized [id number] Pending Review Auto-Generat ed Referral 03/08/2024 04/07/2025 1 1 [facility]No reason for referral information availableWMercy Health St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 Advance Directive(s) 10/10/2020 10:19 AM [...] April 24, 2022 5 :45pm Power of Stamping Press Operator No April 24, 2022 5:45pm Advance Directive Response Recorded Date/ Time Advance Directives No May 13 3:12pm Living Will No May 20, 2022 10:19pm Power of Stamping Press Operator No May 20 10:19pm Advance Directive Response Recorded Date/ Time Advance Directives No May 13 3:12pm Living Will No May 21, 2022 4:04am Power of Stamping Press Operator No May 21 4:04am Advance Directive Response Recorded Date/ Time Advance Directives No May 13 3:12pm Living Will No August 24 3:23am Power of Stamping Press Operator No August 24, 2022 3:23am Advance Directive Response Recorded Date/ Time Advance Directives No May 13 2:12pm Living Will No August 24 2:23am Power of Stamping Press Operator No August 24, 2022 2:23am Advance Directive Response Recorded Date/ Time Advance Directives No May 13 2:12pm Living Will No October 09, 1:31am Power of Stamping Press Operator No October 09, 2022 1:31am Advance Directive Response Recorded Date/ Time Advance Directives No May 13 2:12pm Living Will No November 05 1:46am Power of Stamping Press Operator No November 05, 2022 1:46am Advance Directive Response Recorded Date/ Time Advance Directives No May 13 3:12pm Living Will No January 06, 2023 5:42pm Power of Stamping Press Operator No January 06 5:42pm Advance Directive Response Recorded Date/ Time Advance Directives No May 13 3:12pm Living Will No January 07, 2023 3:43pm Power of Stamping Press Operator No January 07 3:43pm Advance Directive Response Recorded Date/ Time Advance Directives No May 13 3:12pm Living Will No January 29, 2023 10:04pm Power of Stamping Press Operator No January 29 10:04pm Advance Directive Response Recorded Date/ Time Advance Directives No May 13 3:12pm Living Will No March 28, 2023 9 :08am Power of Stamping Press Operator No March 28, 2023 9:08am Advance Directive Response Recorded Date/ Time Advance Directives No May 13 3:12pm Living Will No June 04 3 4:57pm Power of Stamping Press Operator No June 04 023 4:57pm Advance Directive Response Recorded Date/ Time Advance Directives No May 13 3:12pm Living Will No June 06 3 6:12pm Power of Stamping Press Operator No June 06 023 6:12pm Advance Directive Response Recorded Date/ Time Advance Directives No May 13 3:12pm Living Will No June 10 3 2:58pm Power of Stamping Press Operator No June 10 023 2:58pm Advance Directive Response Recorded Date/ Time Advance Directives No May 13 2:12pm Living Will No November 19 8:42am Power of Stamping Press Operator No November 19, 2023 8:42am Advance Directive Response Recorded Date/ Time Advance Directives No May 13 2:12pm Living Will No January 01, 2024 6:36pm Power of Stamping Press Operator No December 31 6:36pm Advance Directive Response Recorded Date/ Time Advance Directives No May 13 3:12pm Living Will No January 02, 2024 12:44am Power of Stamping Press Operator No January 01 12:44am Advance Directive Response Recorded Date/ Time Advance Directives No May 13 3:12pm Living Will No January 20, 2024 1:09am Power of Stamping Press Operator No January 19 1:09am Advance Directive Response Recorded Date/ Time Living Will No October 24 024 12:12pm Do you have a Healthcare Power of Stamping Press Operator? No October 24, 2024 12:12pm Living Will No January 22, 2025 10:46am Do you have a Healthcare Power of Stamping Press Operator? No January 22, 2025 10:46am Advance Directives No May 13 3:12pm Advance Directive Response Recorded Date/ Time Advance Directives No March 16 7:49am Living Will No January 22, 2025 10:46am Do you have a Healthcare Power of Stamping Press Operator? No January 22, 2025 10:46am Advance Directive Response Recorded Date/ Time Advance Directives No March 16 7:49am Advance Directive Response Recorded Date/ Time Do you have a Healthcare Power of Stamping Press Operator? No May 26, 2025 12:34am Advance Directives No March 16 7:49am Advance Directive Response Recorded Date/ Time Do you have a Healthcare Power of Stamping Press Operator? No May 26, 2025 12:34am Do you have a Healthcare Power of Stamping Press Operator? No May 28, 2025 12:42pm Advance Directives No March 16 7:49am Advance Directive Response Recorded Date/ Time Advance Directives No August 10, 2025 8:33am Do you have a Healthcare Power of Stamping Press Operator? No May 26, 2025 12:34am Do you have a Healthcare Power of Stamping Press Operator? No May 28, 2025 12:42pm Chief Complaint [...] PAIN ACUTE ON CHRONIC LOW BACK PAIN LONG-TERM LABWORK LABWORK Chief Complaint GENERAL ILLNESS NUMBNESS [...] PAIN ACUTE ON CHRONIC LOW BACK PAIN LONG-TERM LABWORK LABWORK CP, DM, HTN CP, DM, [...] PAIN ACUTE ON CHRONIC LOW BACK PAIN LONG-TERM LABWORK LABWORK CP, DM, HTN CP, DM, [...] PAIN ACUTE ON CHRONIC LOW BACK PAIN LONG-TERM LABWORK LABWORK LONG-TERM LABWORK CP, DM, HTN CP, DM, HTN [...] PAIN ACUTE ON CHRONIC LOW BACK PAIN LONG-TERM LABWORK LABWORK LONG-TERM LABWORK CP, DM, HTN CP, DM, HTN [...] PAIN ACUTE ON CHRONIC LOW BACK PAIN LONG-TERM LABWORK LABWORK LONG-TERM LABWORK CP, DM, HTN CP, DM, HTN [...] PAIN ACUTE ON CHRONIC LOW BACK PAIN LONG-TERM LABWORK LABWORK LONG-TERM LABWORK CP, DM, HTN CP, DM, HTN CP, DM, HTN CP, DM, HTN LAB WORK NEW SYMPTOMS/CONCERNS CHEST PAIN CHEST PAIN ER FOLLOW UP LONG-TERM LABWORK LAB WORK CHEST PAIN CHEST PAIN LONG-TERM LABWORK Amb Documentation s/p hosp/ AREA FIELD PERSON consult in ER Reason for Visit Hyperlipidemia Chest pain Hypothyroidism Nonspecific chest pain Atherosclerotic heart disease of ambler coronary artery without angina pectoris Chest pressure [...] PAIN ACUTE ON CHRONIC LOW BACK PAIN LONG-TERM LABWORK LABWORK LONG-TERM LABWORK CP, DM, HTN CP, DM, HTN CP, DM, HTN CP, DM, HTN LAB WORK NEW SYMPTOMS/CONCERNS CHEST PAIN CHEST PAIN ER FOLLOW UP LONG-TERM LABWORK LAB WORK CHEST PAIN CHEST PAIN LONG-TERM LABWORK LONG-TERM LABWORK Amb Documentation s/p hosp/ AREA FIELD PERSON consult in ER LONG-TERM LABWORK DYSPNEA *GRUPO* Reason for Visit Hyperlipidemia Chest pain Hypothyroidism Nonspecific chest pain Atherosclerotic heart disease of ambler coronary artery without angina pectoris Chest pressure [...] PAIN ACUTE ON CHRONIC LOW BACK PAIN LONG-TERM LABWORK LABWORK LONG-TERM LABWORK CP, DM, HTN CP, DM, HTN CP, DM, HTN CP, DM, HTN LAB WORK NEW SYMPTOMS/CONCERNS CHEST PAIN CHEST PAIN ER FOLLOW UP LONG-TERM LABWORK LAB WORK CHEST PAIN CHEST PAIN LONG-TERM LABWORK LONG-TERM LABWORK Amb Documentation s/p hosp/ AREA FIELD PERSON consult in ER LONG-TERM LABWORK LONG-TERM LAB WORK DYSPNEA *GRUPO* LONG-TERM LAB WORK Reason for Visit Hyperlipidemia Chest pain Hypothyroidism Nonspecific chest pain Atherosclerotic heart disease of ambler coronary artery without angina pectoris Chest pressure Dizziness Dyspnea Essential hypertension Hyperlipidemia Chief Complaint LABWORK LONG-TERM LABWORK CP, DM, HTN CP, DM, HTN CP, DM, HTN CP, DM, HTN LAB WORK NEW SYMPTOMS/CONCERNS CHEST PAIN CHEST PAIN ER FOLLOW UP LONG-TERM LABWORK LAB WORK CHEST PAIN CHEST PAIN LONG-TERM LABWORK LONG-TERM LABWORK Amb Documentation s/p hosp/ AREA FIELD PERSON consult in ER LONG-TERM LABWORK LONG-TERM LAB WORK DYSPNEA *GRUPO* LABWORK LONG-TERM LAB WORK LONG-TERM LABWORK Reason for Visit Hyperlipidemia Chest pain Hypothyroidism Nonspecific chest pain Atherosclerotic heart disease of ambler coronary artery without angina pectoris Chest pressure Dizziness Dyspnea Essential hypertension Hyperlipidemia Chief Complaint CP, DM, HTN CP, DM, HTN CP, DM, HTN CP, DM, HTN LAB WORK NEW SYMPTOMS/CONCERNS CHEST PAIN CHEST PAIN ER FOLLOW UP LONG-TERM LABWORK LAB WORK CHEST PAIN CHEST PAIN LONG-TERM LABWORK LONG-TERM LABWORK Amb Documentation s/p hosp/ AREA FIELD PERSON consult in ER LONG-TERM LABWORK LONG-TERM LAB WORK DYSPNEA *GRUPO* LABWORK LONG-TERM LAB WORK LONG-TERM LABWORK LONG-TERM LABWORK Reason for Visit Hyperlipidemia Chest pain Hypothyroidism Nonspecific chest pain Atherosclerotic heart disease of ambler coronary artery without angina pectoris Chest pressure Dizziness Dyspnea Essential hypertension Hyperlipidemia Chief Complaint CHEST PAIN CHEST PAIN ER FOLLOW UP LONG-TERM LABWORK LAB WORK CHEST PAIN CHEST PAIN LONG-TERM LABWORK LONG-TERM LABWORK Amb Documentation s/p hosp/ AREA FIELD PERSON consult in ER LONG-TERM LABWORK LONG-TERM LAB WORK DYSPNEA *GRUPO* LABWORK LONG-TERM LAB WORK LABWORK LONG-TERM LABWORK LONG-TERM LABWORK LONG-TERM LAB WORK CP Reason for Visit Hypothyroidism Nonspecific chest pain Atherosclerotic heart disease of ambler coronary artery without angina pectoris Chest pressure Dizziness Dyspnea Essential hypertension Hyperlipidemia Chief Complaint LONG-TERM LABWORK LONG-TERM LABWORK Amb Documentation s/p hosp/ AREA FIELD PERSON consult in ER LONG-TERM LABWORK LONG-TERM LAB WORK DYSPNEA *GRUPO* LABWORK LONG-TERM LAB WORK LABWORK LONG-TERM LABWORK LONG-TERM LABWORK LONG-TERM LAB WORK CP ER VISIT RETURN LONG-TERM LABWORK 3 M FU Reason for Visit Atherosclerotic hear t disease of ambler coronary artery without angina pectoris Chest pressure Dizziness Dyspnea Essential hypertension Hyperlipidemia Atherosclerotic heart disease of ambler coronary artery without angina pectoris Bilateral lower extremity edema Essential hypertension Hyperlipidemia Chief Complaint s/p hosp/ AREA FIELD PERSON consul t in ER LONG-TERM LABWORK LONG-TERM LAB WORK DYSPNEA *GRUPO* LABWORK LONG-TERM LAB WORK LABWORK LONG-TERM LABWORK LONG-TERM LABWORK LONG-TERM LAB WORK CP ER VISIT RETURN LONG-TERM LABWORK 3 M FU LONG-TERM LAB WORK abd pain Reason for Visit Atherosclerotic hear t disease of ambler coronary artery without angina pectoris Chest pressure Dizziness Dyspnea Essential hypertension Hyperlipidemia Atherosclerotic heart disease of ambler coronary artery without angina pectoris Bilateral lower extremity edema Essential hypertension Hyperlipidemia Chief Complaint LONG-TERM LAB WOR K DYSPNEA *GRUPO* LABWORK LONG-TERM LAB WORK LABWORK LONG-TERM LABWORK LONG-TERM LABWORK LONG-TERM LAB WORK CP ER VISIT RETURN LONG-TERM LABWORK MONTHLY EXAM 3 M FU LONG-TERM LABWORK LONG-TERM LAB WORK LONG-TERM LAB WORK abd pain MONTHLY VISIT LONG-TERM LAB WORK NEW CONCERN Reason for Visit Atherosclerotic hear t disease of ambler coronary artery without angina pectoris Bilateral lower extremity edema Essential hypertension Hyperlipidemia Chief Complaint LABWORK LONG-TERM LABWORK LONG-TERM LABWORK LONG-TERM LAB WORK CP ER VISIT RETURN LONG-TERM LABWORK MONTHLY EXAM 3 M FU LONG-TERM LABWORK LONG-TERM LAB WORK LONG-TERM LAB WORK abd pain MONTHLY VISIT LONG-TERM LAB WORK NEW CONCERN NEW PROBLEM/CONCERN chest pain Reason for Visit Atherosclerotic hear t disease of ambler coronary artery without angina pectoris Bilateral lower extremity edema Essential hypertension Hyperlipidemia Chief Complaint LONG-TERM LABWORK LONG-TERM LAB WORK CP ER VISIT RETURN LONG-TERM LABWORK MONTHLY EXAM 3 M FU LONG-TERM LABWORK LONG-TERM LAB WORK LONG-TERM LAB WORK abd pain MONTHLY VISIT LONG-TERM LAB WORK NEW CONCERN LABWORK NEW PROBLEM/CONCERN chest pain ER FOLLOW UP LONG-TERM LAB WORK Reason for Visit Atherosclerotic hear t disease of ambler coronary artery without angina pectoris Bilateral lower extremity edema Essential hypertension Hyperlipidemia Chief Complaint LONG-TERM LABWORK LONG-TERM LAB WORK CP ER VISIT RETURN LONG-TERM LABWORK MONTHLY EXAM 3 M FU LONG-TERM LABWORK LONG-TERM LAB WORK LONG-TERM LAB WORK abd pain MONTHLY VISIT LONG-TERM LAB WORK NEW CONCERN LABWORK NEW PROBLEM/CONCERN LONG-TERM LABWORK chest pain ER FOLLOW UP NEW CONCERN/PROBLEM LONG-TERM LAB WORK Reason for Visit Atherosclerotic hear t disease of ambler coronary artery without angina pectoris Bilateral lower extremity edema Essential hypertension Hyperlipidemia Chief Complaint LONG-TERM LAB WOR K CP ER VISIT RETURN LONG-TERM LABWORK MONTHLY EXAM 3 M FU LONG-TERM LABWORK LONG-TERM LAB WORK LONG-TERM LAB WORK abd pain MONTHLY VISIT LONG-TERM LAB WORK NEW CONCERN LABWORK NEW PROBLEM/CONCERN LONG-TERM LABWORK chest pain ER FOLLOW UP NEW CONCERN/PROBLEM LONG-TERM LAB WORK MONTHLY EXAM LONG-TERM LAB WORK Amb Documentation Reason for Visit Atherosclerotic hear t disease of ambler coronary artery without angina pectoris Bilateral lower extremity edema Essential hypertension Hyperlipidemia Chief Complaint 3 M FU LONG-TERM LABWORK LONG-TERM LAB WORK LONG-TERM LAB WORK abd pain MONTHLY VISIT LONG-TERM LAB WORK NEW CONCERN LABWORK NEW PROBLEM/CONCERN LONG-TERM LABWORK chest pain ER FOLLOW UP NEW CONCERN/PROBLEM LONG-TERM LAB WORK MONTHLY EXAM LONG-TERM LAB WORK LONG-TERM LAB WORK MONTHLY VISIT Amb Documentation LONG-TERM LABWORK NEW CONCERN RIGHT FLANK PAIN Reason for Visit Atherosclerotic hear t disease of ambler coronary artery without angina pectoris Bilateral lower extremity edema Essential hypertension Hyperlipidemia Chief Complaint 3 M FU LONG-TERM LABWORK LONG-TERM LAB WORK LONG-TERM LAB WORK abd pain MONTHLY VISIT LONG-TERM LAB WORK NEW CONCERN LABWORK NEW PROBLEM/CONCERN LONG-TERM LABWORK chest pain ER FOLLOW UP NEW CONCERN/PROBLEM LONG-TERM LAB WORK MONTHLY EXAM LONG-TERM LAB WORK LONG-TERM LAB WORK MONTHLY VISIT Amb Documentation LONG-TERM LABWORK NEW CONCERN RIGHT FLANK PAIN FLANK PAIN Reason for Visit Atherosclerotic hear t disease of ambler coronary artery without angina pectoris Bilateral lower extremity edema Essential hypertension Hyperlipidemia Chief Complaint LONG-TERM LAB WOR K abd pain MONTHLY VISIT LONG-TERM LAB WORK NEW CONCERN LABWORK NEW PROBLEM/CONCERN LONG-TERM LABWORK chest pain ER FOLLOW UP NEW CONCERN/PROBLEM LONG-TERM LAB WORK MONTHLY EXAM LONG-TERM LAB WORK LONG-TERM LAB WORK MONTHLY VISIT Amb Documentation LONG-TERM LABWORK NEW CONCERN LONG-TERM LAB WORK LONG-TERM LAB WORK NEW CONCERN/PROBLEM LONG-TERM LABWORK NEW CONCERNS LONG-TERM LAB WORK MONTHLY EXAM RIGHT FLANK PAIN FLANK PAIN NEW CONCERN NEW CONCERN Chief Complaint abd pain MONTHLY VISIT LONG-TERM LAB WORK NEW CONCERN LABWORK NEW PROBLEM/CONCERN LONG-TERM LABWORK chest pain ER FOLLOW UP NEW CONCERN/PROBLEM LONG-TERM LAB WORK MONTHLY EXAM LONG-TERM LAB WORK LONG-TERM LAB WORK MONTHLY VISIT Amb Documentation LONG-TERM LABWORK NEW CONCERN LONG-TERM LAB WORK LONG-TERM LAB WORK NEW CONCERN/PROBLEM LONG-TERM LABWORK NEW CONCERNS LONG-TERM LAB WORK MONTHLY EXAM RIGHT FLANK PAIN FLANK PAIN NEW CONCERN NEW CONCERN LONG-TERM LAB WORK HYPERSOMNIA Chief Complaint abd pain MONTHLY VISIT LONG-TERM LAB WORK NEW CONCERN LABWORK NEW PROBLEM/CONCERN LONG-TERM LABWORK chest pain ER FOLLOW UP NEW CONCERN/PROBLEM LONG-TERM LAB WORK MONTHLY EXAM LONG-TERM LAB WORK LONG-TERM LAB WORK MONTHLY VISIT Amb Documentation LONG-TERM LABWORK NEW CONCERN LONG-TERM LAB WORK LONG-TERM LAB WORK NEW CONCERN/PROBLEM LONG-TERM LABWORK NEW CONCERNS LONG-TERM LAB WORK MONTHLY EXAM RIGHT FLANK PAIN FLANK PAIN NEW CONCERN NEW CONCERN LONG-TERM LAB WORK HYPERSOMNIA CP Chief Complaint abd pain MONTHLY VISIT LONG-TERM LAB WORK NEW CONCERN LABWORK NEW PROBLEM/CONCERN LONG-TERM LABWORK chest pain ER FOLLOW UP NEW CONCERN/PROBLEM LONG-TERM LAB WORK MONTHLY EXAM LONG-TERM LAB WORK LONG-TERM LAB WORK MONTHLY VISIT Amb Documentation LONG-TERM LABWORK NEW CONCERN LONG-TERM LAB WORK LONG-TERM LAB WORK NEW CONCERN/PROBLEM LONG-TERM LABWORK NEW CONCERNS LONG-TERM LAB WORK MONTHLY EXAM RIGHT FLANK PAIN FLANK PAIN NEW CONCERN NEW CONCERN LONG-TERM LAB WORK LONG-TERM LABWORK HYPERSOMNIA CP Chief Complaint LONG-TERM LAB WOR K MONTHLY VISIT Amb Documentation LONG-TERM LABWORK NEW CONCERN LONG-TERM LAB WORK LONG-TERM LAB WORK NEW CONCERN/PROBLEM LONG-TERM LABWORK NEW CONCERNS LONG-TERM LAB WORK MONTHLY EXAM RIGHT FLANK PAIN FLANK PAIN NEW CONCERN NEW CONCERN LONG-TERM LAB WORK LONG-TERM LABWORK HYPERSOMNIA CP NEW CONCERN LONG-TERM LABWORK 5 MO F/U LONG-TERM LAB WORK LONG-TERM LABWORK LONG-TERM LABWORK Reason for Visit Atherosclerotic hear t disease of ambler coronary artery without angina pectoris Bilateral lower extremity edema Essential hypertension Hyperlipidemia Palpitations Chief Complaint LONG-TERM LAB WOR K MONTHLY VISIT Amb Documentation LONG-TERM LABWORK NEW CONCERN LONG-TERM LAB WORK LONG-TERM LAB WORK NEW CONCERN/PROBLEM LONG-TERM LABWORK NEW CONCERNS LONG-TERM LAB WORK MONTHLY EXAM RIGHT FLANK PAIN FLANK PAIN NEW CONCERN NEW CONCERN LONG-TERM LAB WORK LONG-TERM LABWORK HYPERSOMNIA CP NEW CONCERN LONG-TERM LABWORK 5 MO F/U LONG-TERM LAB WORK LONG-TERM LABWORK LONG-TERM LABWORK constipation Reason for Visit Atherosclerotic hear t disease of ambler coronary artery without angina pectoris Bilateral lower extremity edema Essential hypertension Hyperlipidemia Palpitations Chief Complaint 5 MO F/U LONG-TERM LAB WORK LONG-TERM LABWORK MONTHLY EXAM LONG-TERM LABWORK NEW CONCERN constipation ABD PAIN Reason for Visit Atherosclerotic hear t disease of ambler coronary artery without angina pectoris Bilateral lower extremity edema Essential hypertension Hyperlipidemia Palpitations Chief Complaint 5 MO F/U LONG-TERM LAB WORK LONG-TERM LABWORK MONTHLY EXAM LONG-TERM LABWORK NEW CONCERN constipation ABD PAIN General illness Reason for Visit Atherosclerotic hear t disease of ambler coronary artery without angina pectoris Bilateral lower extremity edema Essential hypertension Hyperlipidemia Palpitations Chief Complaint 5 MO F/U LONG-TERM LAB WORK LONG-TERM LABWORK MONTHLY EXAM LONG-TERM LABWORK NEW CONCERN constipation ABD PAIN General illness constipation Reason for Visit Atherosclerotic hear t disease of ambler coronary artery without angina pectoris Bilateral lower [...] hyperglycemia hyperglycemia hyperglycemia hyperglycemia hyperglycemia ADMISSION EXAM INSTRUMENT MAN LABWORK ADMISSION EXAM MD LABWORK LABWORK LABWORK LONG-TERM LAB WORK LABWORK BL PE, CHEST PAIN BL PE, CHEST PAIN BL PE, CHEST PAIN BL PE, CHEST PAIN BL PE, CHEST PAIN Reason for Visit Diarrhea Acute leg pain Diabetes mellitus with hyperglycemia Nausea Chest pressure Chief Complaint hyperglycemia hyperglycemia hyperglycemia hyperglycemia hyperglycemia hyperglycemia hyperglycemia ADMISSION EXAM INSTRUMENT MAN LABWORK ADMISSION EXAM MD LABWORK LABWORK LABWORK LONG-TERM LAB WORK LABWORK BL PE, CHEST PAIN BL PE, CHEST PAIN BL PE, CHEST PAIN BL PE, CHEST PAIN BL PE, CHEST PAIN chest pain Reason for Visit Diarrhea Acute leg pain Diabetes mellitus with hyperglycemia Nausea Chest pressure Chief Complaint hyperglycemia hyperglycemia hyperglycemia hyperglycemia hyperglycemia hyperglycemia hyperglycemia ADMISSION EXAM INSTRUMENT MAN LABWORK ADMISSION EXAM MD LABWORK LABWORK LABWORK LONG-TERM LAB WORK NEW CONCERN LABWORK BL PE, CHEST PAIN BL PE, CHEST PAIN BL PE, CHEST PAIN BL PE, CHEST PAIN BL PE, CHEST PAIN LABWORK LAB WORK LABWORK LABWORK LAB WORK chest pain LABWORK LABWORK MONTHLY EXAM LONG-TERM LAB WORK LABWORK LONG-TERM LAB WORK LABWORK Reason for Visit Diarrhea Acute leg pain Diabetes mellitus with hyperglycemia Nausea Chest pressure Chief Complaint Admit Date MONTHLY EXAM September 26, 2024 1 1:30pm LABWORK September 29, 2024 5 :00am LABWORK October 06, 2024 5:00am RT BREAST PAIN October 06, 2024 2:19pm LONG-TERM LAB WORK October 13 4:00am LONG-TERM LAB WORK October 20 5:00am abd pain October 24, 2024 11:08am LONG-TERM LAB WORK October 27, 2024 5:00am MONTHLY VISIT October 27, 2024 5: 39pm LABWORK November 01, 2024 5: 07am LABWORK November 03, 2024 5 :04am LABWORK November 10, 2024 5 :00am LABWORK November 17, 2024 5 :00am LABWORK November 24, 2024 5 :00am MONTHLY EXAM November 28, 2024 9 :33pm LONG-TERM LAB WORK November 30, 2024 5:00am LABWORK December 07, 2024 8:00pm LABWORK January 05, 2025 5:0 0am CP January 22, 2025 10: 39am Chief Complaint Admit Date LABWORK September 29, 2024 5 :00am LABWORK October 06, 2024 5:00am RT BREAST PAIN October 06, 2024 2:19pm LONG-TERM LAB WORK October 13 4:00am LONG-TERM LAB WORK October 20 5:00am abd pain October 24, 2024 11:08am LONG-TERM LAB WORK October 27, 2024 5:00am MONTHLY VISIT October 27, 2024 5: 39pm LABWORK November 01, 2024 5: 07am LABWORK November 03, 2024 5 :04am LABWORK November 10, 2024 5 :00am LABWORK November 17, 2024 5 :00am LABWORK November 24, 2024 5 :00am MONTHLY EXAM November 28, 2024 9 :33pm LONG-TERM LAB WORK November 30, 2024 5:00am LABWORK December 07, 2024 8:00pm MONTHLY EXAM January 04, 2025 10: 31am LABWORK January 05, 2025 5:0 0am CP January 22, 2025 10: 39am ACUTE CARE VISIT January 22, 2025 4:0 1pm Chief Complaint Admit Date MONTHLY EXAM November 28, 2024 9 :33pm LONG-TERM LAB WORK November 30, 2024 5:00am LABWORK December 07, 2024 8:00pm MONTHLY EXAM January 04, 2025 10: 31am LABWORK January 05, 2025 5:0 0am CP January 22, 2025 10: 39am ACUTE CARE VISIT January 22, 2025 4:0 1pm MONTHLY EXAM January 23, 2025 5:48 pm Chest pain January 30, 2025 1:52 pm LONG-TERM LAB WORK March 12, 2025 4:0 0am Reason for Visit Admit Date 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 January 30, 2025 1:52pm Essential hypertension January 30, 2025 1 :52pm Hyperlipidemia January 30, 2025 1:52 pm Chest pain January 30, 2025 1:52 pm Chief Complaint Admit Date CP January 22, 2025 10: 39am ACUTE CARE VISIT January 22, 2025 4:0 1pm MONTHLY EXAM January 23, 2025 5:48 pm Chest pain January 30, 2025 1:52 pm LONG-TERM LAB WORK March 05, 2025 5:0 0am LONG-TERM LAB WORK March 12, 2025 4:0 0am NEW CONCERN March 13, 2025 5:30p m LONG-TERM LAB WORK March 29, 2025 5:0 0am LONG-TERM LAB WORK April 06, 2025 5: 00am LONG-TERM LAB WORK April 12, 2025 2: 50pm Chief Complaint Admit Date CP January 22, 2025 10: 39am ACUTE CARE VISIT January 22, 2025 4:0 1pm MONTHLY EXAM January 23, 2025 5:48 pm Chest pain January 30, 2025 1:52 pm LONG-TERM LAB WORK March 05, 2025 5:0 0am LONG-TERM LAB WORK March 12, 2025 4:0 0am NEW CONCERN March 13, 2025 5:30p m MONTHLY EXAM March 27, 2025 6:00p m LONG-TERM LAB WORK March 29, 2025 5:0 0am LONG-TERM LAB WORK April 06, 2025 5: 00am LONG-TERM LAB WORK April 12, 2025 2: 50pm LABWORK April 25, 2025 5:00a m Chief Complaint Admit Date CP January 22, 2025 10: 39am ACUTE CARE VISIT January 22, 2025 4:0 1pm MONTHLY EXAM January 23, 2025 5:48 pm Chest pain January 30, 2025 1:52 pm LONG-TERM LAB WORK March 05, 2025 5:0 0am LONG-TERM LAB WORK March 12, 2025 4:0 0am NEW CONCERN March 13, 2025 5:30p m MONTHLY EXAM March 27, 2025 6:00p m LONG-TERM LAB WORK March 29, 2025 5:0 0am LONG-TERM LAB WORK April 06, 2025 5: 00am NEW CONCERN April 12, 2025 10:1 5am LONG-TERM LAB WORK April 12, 2025 2: 50pm LABWORK April 25, 2025 5:00a m Chief Complaint Admit Date CP January 22, 2025 10: 39am ACUTE CARE VISIT January 22, 2025 4:0 1pm MONTHLY EXAM January 23, 2025 5:48 pm Chest pain January 30, 2025 1:52 pm LONG-TERM LAB WORK March 05, 2025 5:0 0am LONG-TERM LAB WORK March 12, 2025 4:0 0am NEW CONCERN March 13, 2025 5:30p m MONTHLY EXAM March 27, 2025 6:00p m LONG-TERM LAB WORK March 29, 2025 5:0 0am LONG-TERM LAB WORK April 06, 2025 5: 00am NEW CONCERN April 12, 2025 10:1 5am LONG-TERM LAB WORK April 12, 2025 2: 50pm FU EXAM April 20, 2025 3:15 pm LABWORK April 25, 2025 5:00a m Chief Complaint Admit Date MONTHLY EXAM January 23, 2025 5:48 pm Chest pain January 30, 2025 1:52 pm MONTHLY VISIT February 26, 2025 4:06pm LONG-TERM LAB WORK March 05, 2025 5:0 0am LONG-TERM LAB WORK March 12, 2025 4:0 0am NEW CONCERN March 13, 2025 5:30p m MONTHLY EXAM March 27, 2025 6:00p m LONG-TERM LAB WORK March 29, 2025 5:0 0am LONG-TERM LAB WORK April 06, 2025 5: 00am NEW CONCERN April 12, 2025 10:1 5am LONG-TERM LAB WORK April 12, 2025 2: 50pm FU EXAM April 20, 2025 3:15 pm LABWORK April 25, 2025 5:00a m LABWORK May 07, 2025 5:00 am Chief Complaint Admit Date MONTHLY EXAM January 23, 2025 5:48 pm Chest pain January 30, 2025 1:52 pm MONTHLY VISIT February 26, 2025 4:06pm LONG-TERM LAB WORK March 05, 2025 5:0 0am NEW CONCERN March 05, 2025 3:46p m LONG-TERM LAB WORK March 12, 2025 4:0 0am NEW CONCERN March 13, 2025 5:30p m MONTHLY EXAM March 27, 2025 6:00p m LONG-TERM LAB WORK March 29, 2025 5:0 0am LONG-TERM LAB WORK April 06, 2025 5: 00am NEW CONCERN April 12, 2025 10:1 5am LONG-TERM LAB WORK April 12, 2025 2: 50pm FU EXAM April 20, 2025 3:15 pm LABWORK April 25, 2025 5:00a m LABWORK May 07, 2025 5:00 am Chief Complaint Admit Date MONTHLY EXAM January 23, 2025 5:48 pm Chest pain January 30, 2025 1:52 pm MONTHLY VISIT February 26, 2025 4:06pm LONG-TERM LAB WORK March 05, 2025 5:0 0am NEW CONCERN March 05, 2025 3:46p m NEW CONCERN March 08, 2025 5:24p m LONG-TERM LAB WORK March 12, 2025 4:0 0am NEW CONCERN March 13, 2025 5:30p m MONTHLY EXAM March 27, 2025 6:00p m LONG-TERM LAB WORK March 29, 2025 5:0 0am LONG-TERM LAB WORK April 06, 2025 5: 00am NEW CONCERN April 12, 2025 10:1 5am LONG-TERM LAB WORK April 12, 2025 2: 50pm FU EXAM April 20, 2025 3:15 pm LABWORK April 25, 2025 5:00a m LABWORK May 07, 2025 5:00 am Chief Complaint Admit Date Chest pain January 30, 2025 1:52 pm MONTHLY VISIT February 26, 2025 4:06pm LONG-TERM LAB WORK March 05, 2025 5:0 0am NEW CONCERN March 05, 2025 3:46p m NEW CONCERN March 08, 2025 5:24p m LONG-TERM LAB WORK March 12, 2025 4:0 0am NEW CONCERN March 13, 2025 5:30p m MONTHLY EXAM March 27, 2025 6:00p m LONG-TERM LAB WORK March 29, 2025 5:0 0am LONG-TERM LAB WORK April 06, 2025 5: 00am NEW CONCERN April 12, 2025 10:1 5am LONG-TERM LAB WORK April 12, 2025 2: 50pm FU EXAM April 20, 2025 3:15 pm LABWORK April 25, 2025 5:00a m LABWORK May 07, 2025 5:00 am R facial swelling, eye blurriness May 26, 2025 12:25am Chief Complaint Admit Date Chest pain January 30, 2025 1:52 pm MONTHLY VISIT February 26, 2025 4:06pm LONG-TERM LAB WORK March 05, 2025 5:0 0am NEW CONCERN March 05, 2025 3:46p m NEW CONCERN March 08, 2025 5:24p m LONG-TERM LAB WORK March 12, 2025 4:0 0am NEW CONCERN March 13, 2025 5:30p m MONTHLY EXAM March 27, 2025 6:00p m LONG-TERM LAB WORK March 29, 2025 5:0 0am LONG-TERM LAB WORK April 06, 2025 5: 00am NEW CONCERN April 12, 2025 10:1 5am LONG-TERM LAB WORK April 12, 2025 2: 50pm FU EXAM April 20, 2025 3:15 pm LABWORK April 25, 2025 5:00a m LABWORK May 07, 2025 5:00 am R facial swelling, eye blurriness May 26, 2025 12:25am FACE CELLULITIS W/FAILED OUTPATIENT ABX May 28, 2025 11:34am Reason for Visit Admit Date 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 January 30, 2025 1:52pm Essential hypertension January 30, 2025 1 :52pm Hyperlipidemia January 30, 2025 1:52 pm Chest pain January 30, 2025 1:52 pm Infected lip laceration May 28, 2025 11:34am Chief Complaint Admit Date MONTHLY VISIT February 26, 2025 4:06pm LONG-TERM LAB WORK March 05, 2025 5:0 0am NEW CONCERN March 05, 2025 3:46p m NEW CONCERN March 08, 2025 5:24p m LONG-TERM LAB WORK March 12, 2025 4:0 0am NEW CONCERN March 13, 2025 5:30p m MONTHLY EXAM March 27, 2025 6:00p m LONG-TERM LAB WORK March 29, 2025 5:0 0am LONG-TERM LAB WORK April 06, 2025 5: 00am NEW CONCERN April 12, 2025 10:1 5am LONG-TERM LAB WORK April 12, 2025 2: 50pm [...] Date MONTHLY VISIT February 26, 2025 4:06pm LONG-TERM LAB WORK March 05, 2025 5:0 0am NEW CONCERN March 05, 2025 3:46p m NEW CONCERN March 08, 2025 5:24p m LONG-TERM LAB WORK March 12, 2025 4:0 0am NEW CONCERN March 13, 2025 5:30p m MONTHLY EXAM March 27, 2025 6:00p m LONG-TERM LAB WORK March 29, 2025 5:0 0am LONG-TERM LAB WORK April 06, 2025 5: 00am NEW CONCERN April 12, 2025 10:1 5am LONG-TERM LAB WORK April 12, 2025 2: 50pm [...] Date MONTHLY VISIT February 26, 2025 4:06pm LONG-TERM LAB WORK March 05, 2025 5:0 0am NEW CONCERN March 05, 2025 3:46p m NEW CONCERN March 08, 2025 5:24p m LONG-TERM LAB WORK March 12, 2025 4:0 0am NEW CONCERN March 13, 2025 5:30p m MONTHLY EXAM March 27, 2025 6:00p m LONG-TERM LAB WORK March 29, 2025 5:0 0am LONG-TERM LAB WORK April 06, 2025 5: 00am NEW CONCERN April 12, 2025 10:1 5am LONG-TERM LAB WORK April 12, 2025 2: 50pm [...] Date MONTHLY VISIT February 26, 2025 4:06pm LONG-TERM LAB WORK March 05, 2025 5:0 0am NEW CONCERN March 05, 2025 3:46p m NEW CONCERN March 08, 2025 5:24p m LONG-TERM LAB WORK March 12, 2025 4:0 0am NEW CONCERN March 13, 2025 5:30p m MONTHLY EXAM March 27, 2025 6:00p m LONG-TERM LAB WORK March 29, 2025 5:0 0am LONG-TERM LAB WORK April 06, 2025 5: 00am NEW CONCERN April 12, 2025 10:1 5am LONG-TERM LAB WORK April 12, 2025 2: 50pm [...] Date MONTHLY VISIT February 26, 2025 4:06pm LONG-TERM LAB WORK March 05, 2025 5:0 0am NEW CONCERN March 05, 2025 3:46p m NEW CONCERN March 08, 2025 5:24p m LONG-TERM LAB WORK March 12, 2025 4:0 0am NEW CONCERN March 13, 2025 5:30p m MONTHLY EXAM March 27, 2025 6:00p m LONG-TERM LAB WORK March 29, 2025 5:0 0am LONG-TERM LAB WORK April 06, 2025 5: 00am NEW CONCERN April 12, 2025 10:1 5am LONG-TERM LAB WORK April 12, 2025 2: 50pm [...] Date MONTHLY VISIT February 26, 2025 4:06pm LONG-TERM LAB WORK March 05, 2025 5:0 0am NEW CONCERN March 05, 2025 3:46p m NEW CONCERN March 08, 2025 5:24p m LONG-TERM LAB WORK March 12, 2025 4:0 0am NEW CONCERN March 13, 2025 5:30p m MONTHLY EXAM March 27, 2025 6:00p m LONG-TERM LAB WORK March 29, 2025 5:0 0am LONG-TERM LAB WORK April 06, 2025 5: 00am NEW CONCERN April 12, 2025 10:1 5am LONG-TERM LAB WORK April 12, 2025 2: 50pm [...] Date MONTHLY VISIT February 26, 2025 4:06pm LONG-TERM LAB WORK March 05, 2025 5:0 0am NEW CONCERN March 05, 2025 3:46p m NEW CONCERN March 08, 2025 5:24p m LONG-TERM LAB WORK March 12, 2025 4:0 0am NEW CONCERN March 13, 2025 5:30p m MONTHLY EXAM March 27, 2025 6:00p m LONG-TERM LAB WORK March 29, 2025 5:0 0am LONG-TERM LAB WORK April 06, 2025 5: 00am NEW CONCERN April 12, 2025 10:1 5am LONG-TERM LAB WORK April 12, 2025 2: 50pm [...] Date MONTHLY VISIT February 26, 2025 4:06pm LONG-TERM LAB WORK March 05, 2025 5:0 0am NEW CONCERN March 05, 2025 3:46p m NEW CONCERN March 08, 2025 5:24p m LONG-TERM LAB WORK March 12, 2025 4:0 0am NEW CONCERN March 13, 2025 5:30p m MONTHLY EXAM March 27, 2025 6:00p m LONG-TERM LAB WORK March 29, 2025 5:0 0am LONG-TERM LAB WORK April 06, 2025 5: 00am NEW CONCERN April 12, 2025 10:1 5am LONG-TERM LAB WORK April 12, 2025 2: 50pm [...] Date MONTHLY VISIT February 26, 2025 4:06pm LONG-TERM LAB WORK March 05, 2025 5:0 0am NEW CONCERN March 05, 2025 3:46p m NEW CONCERN March 08, 2025 5:24p m LONG-TERM LAB WORK March 12, 2025 4:0 0am NEW CONCERN March 13, 2025 5:30p m MONTHLY EXAM March 27, 2025 6:00p m LONG-TERM LAB WORK March 29, 2025 5:0 0am LONG-TERM LAB WORK April 06, 2025 5: 00am NEW CONCERN April 12, 2025 10:1 5am LONG-TERM LAB WORK April 12, 2025 2: 50pm [...] MONTHLY EXAM March 27, 2025 6:00p m LONG-TERM LAB WORK March 29, 2025 5:0 0am LONG-TERM LAB WORK April 06, 2025 5: 00am NEW CONCERN April 12, 2025 10:1 5am LONG-TERM LAB WORK April 12, 2025 2: 50pm [...] POST OP June 07, 2025 9: 32am LONG-TERM LAB WORK June 11, 2025 5:00am 1 W FU June 15, 2025 1: 35pm LONG-TERM LAB WORK June 28 5:00am LABWOKR July [...] 17, 2025 8:33am Chief Complaint Admit Date LONG-TERM LAB WORK March 29, 2025 5:0 0am LONG-TERM LAB WORK April 06, 2025 5: 00am NEW CONCERN April 12, 2025 10:1 5am LONG-TERM LAB WORK April 12, 2025 2: 50pm [...] POST OP June 07, 2025 9: 32am LONG-TERM LAB WORK June 11, 2025 5:00am 1 W FU June 15, 2025 1: 35pm LONG-TERM LAB WORK June 28 5:00am LABWOKR July [...] POST OP June 07, 2025 9: 32am LONG-TERM LAB WORK June 11, 2025 5:00am 1 W FU June 15, 2025 1: 35pm LONG-TERM LAB WORK June 28 5:00am LABWOKR July 06, 2025 5:00am LUMBAR RAD July 06, 2025 12:54pm MONTHLY VISIT July 06, 2025 3:51pm ABDOMINAL HERNIA July 17, 2025 8:33am LONG-TERM LAB WORK July 26, 2025 5:00am CP July 26, 2025 6: 23am CP July 30, 2025 4: 14pm Reason for Referral Specialty Diagnoses / Procedures Referred By Contac t Referred To Contact Podiatry Diagnoses Diabetic polyneuropathy associated with type 2 diabetes mellitus (HCC) Procedures CONSULT TO PODIATRY OFFICE/OUTPATIENT [facility] 60-74 MINUTES Dwayne Lopez MD [address] [place] [id number] Referral ID Status Reason Start Date Expiration Date Visits Requested Visits Authorized [id number] Pending Review PCP Requested Referral 04/07/2023 04/06/2024 1 1 Specialty Diagnoses / Procedures Referred By Contac t Referred To Contact General Surgery Diagnoses Globus sensation Screening for colon cancer Procedures CONSULT TO GENERAL SURGERY OFFICE/OUTPATIENT [facility] 60-74 MINUTES Dwayne Lopez MD [address] [place] [address] Referral ID Status Reason Start Date Expiration Date Visits Requested Visits Authorized [id number] Pending Review PCP Requested Referral 04/07/2023 04/06/2024 1 1 Specialty Diagnoses / Procedures Referred By Contac t Referred To Contact Ophthalmology Diagnoses Diabetes mellitus type 2 with neurological manifestations (HCC) Change in vision Procedures CONSULT TO OPHTHALMOLOGY OFFICE/OUTPATIENT [facility] 60-[place] [address] [place] [id number] Referral ID Status Reason Start Date Expiration Date Visits Requested Visits Authorized [id number] Pending Review PCP Requested Referral 04/07/2023 04/06/2024 1 1 Additional Source Comments INFORMATION SOURCE (unrecogn ized section and content) DATE CREATED AUTHOR 04/13/2018 [facility] DATE CREATED AUTHOR AUTHOR'S ORGANIZ ATION 04/14/2018 [facility] DATE CREATED AUTHOR AUTHOR'S ORGANIZ ATION 10/05/2018 [facility] DATE CREATED AUTHOR AUTHOR'S ORGANIZ ATION 10/19/2019 [facility] DATE CREATED AUTHOR AUTHOR'S ORGANIZ ATION 09/28/2020 [facility] ([place]) DATE CREATED AUTHOR AUTHOR'S ORGANIZ ATION 09/05/2025 [facility] DATE CREATED AUTHOR AUTHOR'S ORGANIZ ATION 09/06/2025 [facility] Goals (unrecognized section and content) Goals [...] this informatio n is protected by the [facility] of Alcohol and Drug Abuse Patient Records regulations: The Federal rules restrict any use of the information to criminally investigate or prosecute any alcohol or drug abuse patient.[facility] the event this information is protected by the Federal Confidentiality of Alcohol and Drug Abuse Patient Records regulations: The Federal rules restrict any use of the information to criminally investigate or prosecute any alcohol or drug abuse patient.[facility] Center[facility] the event this information is protected by the Federal Confidentiality of Alcohol and Drug Abuse Patient Records regulations: The Federal rules restrict any use of the information to criminally investigate or prosecute any alcohol or drug abuse patient.[facility] the event this information is protected by the Federal Confidentiality of Alcohol and Drug Abuse Patient Records regulations: The Federal rules restrict any use of the information to criminally investigate or prosecute any alcohol or drug abuse patient.[facility] Center[facility] the event this information is protected by the Federal Confidentiality of Alcohol and Drug Abuse Patient Records regulations: The Federal rules restrict any use of the information to criminally investigate or prosecute any alcohol or drug abuse patient.[facility] Center[facility] the event this information is protected by the Federal Confidentiality of Alcohol and Drug Abuse Patient Records regulations: The Federal rules restrict any use of the information to criminally investigate or prosecute any alcohol or drug abuse patient.[facility] Center[facility] the event this information is protected by the Federal Confidentiality of Alcohol and Drug Abuse Patient Records regulations: The Federal rules restrict any use of the information to criminally investigate or prosecute any alcohol or drug abuse patient.[facility] Center[facility] the event this information is protected by the Federal Confidentiality of Alcohol and Drug Abuse Patient Records regulations: The Federal rules restrict any use of the information to criminally investigate or prosecute any alcohol or drug abuse patient.[facility] Center[facility] the event this information is protected by the Federal Confidentiality of Alcohol and Drug Abuse Patient Records regulations: The Federal rules restrict any use of the information to criminally investigate or prosecute any alcohol or drug abuse patient.[facility] Center[facility] the event this information is protected by the Federal Confidentiality of Alcohol and Drug Abuse Patient Records regulations: The Federal rules restrict any use of the information to criminally investigate or prosecute any alcohol or drug abuse patient.[facility] Center[facility] the event this information is protected by the Federal Confidentiality of Alcohol and Drug Abuse Patient Records regulations: The Federal rules restrict any use of the information to criminally investigate or prosecute any alcohol or drug abuse patient.[facility] Center[facility] the event this information is protected by the Federal Confidentiality of Alcohol and Drug Abuse Patient Records regulations: The Federal rules restrict any use of the information to criminally investigate or prosecute any alcohol or drug abuse patient.[facility] Center[facility] the event this information is protected by the Federal Confidentiality of Alcohol and Drug Abuse Patient Records regulations: The Federal rules restrict any use of the information to criminally investigate or prosecute any alcohol or drug abuse patient.[facility] Center[facility] the event this information is protected by the Federal Confidentiality of Alcohol and Drug Abuse Patient Records regulations: The Federal rules restrict any use of the information to criminally investigate or prosecute any alcohol or drug abuse patient.[facility] CenterIn the event this information is protected by the Federal Confidentiality of Alcohol and Drug Abuse Patient Records regulations: The Federal rules restrict any use of the information to criminally investigate or prosecute any alcohol or drug abuse patient.[facility] CenterIn the event this information is protected by the Federal Confidentiality of Alcohol and Drug Abuse Patient Records regulations: The Federal rules restrict any use of the information to criminally investigate or prosecute any alcohol or drug abuse patient.[facility] CenterIn the event this information is protected by the Federal Confidentiality of Alcohol and Drug Abuse Patient Records regulations: The Federal rules restrict any use of the information to criminally investigate or prosecute any alcohol or drug abuse patient.[facility] CenterIn the event this information is protected by the Federal Confidentiality of Alcohol and Drug Abuse Patient Records regulations: The Federal rules restrict any use of the information to criminally investigate or prosecute any alcohol or drug abuse patient.[facility] CenterIn the event this information is protected by the Federal Confidentiality of Alcohol and Drug Abuse Patient Records regulations: The Federal rules restrict any use of the information to criminally investigate or prosecute any alcohol or drug abuse patient.[facility] CenterIn the event this information is protected by the Federal Confidentiality of Alcohol and Drug Abuse Patient Records regulations: The Federal rules restrict any use of the information to criminally investigate or prosecute any alcohol or drug abuse patient.[facility] CenterIn the event this information is protected by the Federal Confidentiality of Alcohol and Drug Abuse Patient Records regulations: The Federal rules restrict any use of the information to criminally investigate or prosecute any alcohol or drug abuse patient.[facility] Center[facility] the event this information is protected by the Federal Confidentiality of Alcohol and Drug Abuse Patient Records regulations: The Federal rules restrict any use of the information to criminally investigate or prosecute any alcohol or drug abuse patient.[facility] Center[facility] the event this information is protected by the Federal Confidentiality of Alcohol and Drug Abuse Patient Records regulations: The Federal rules restrict any use of the information to criminally investigate or prosecute any alcohol or drug abuse patient.[facility] CenterIn the event this information is protected by the Federal Confidentiality of Alcohol and Drug Abuse Patient Records regulations: The Federal rules restrict any use of the information to criminally investigate or prosecute any alcohol or drug abuse patient.[facility] CenterIn the event this information is protected by the Federal Confidentiality of Alcohol and Drug Abuse Patient Records regulations: The Federal rules restrict any use of the information to criminally investigate or prosecute any alcohol or drug abuse patient.[facility] CenterIn the event this information is protected by the Federal Confidentiality of Alcohol and Drug Abuse Patient Records regulations: The Federal rules restrict any use of the information to criminally investigate or prosecute any alcohol or drug abuse patient.[facility] CenterIn the event this information is protected by the Federal Confidentiality of Alcohol and Drug Abuse Patient Records regulations: The Federal rules restrict any use of the information to criminally investigate or prosecute any alcohol or drug abuse patient.[facility] CenterIn the event this information is protected by the Federal Confidentiality of Alcohol and Drug Abuse Patient Records regulations: The Federal rules restrict any use of the information to criminally investigate or prosecute any alcohol or drug abuse patient.[facility] CenterIn the event this information is protected by the Federal Confidentiality of Alcohol and Drug Abuse Patient Records regulations: The Federal rules restrict any use of the information to criminally investigate or prosecute any alcohol or drug abuse patient.[facility] CenterIn the event this information is protected by the Federal Confidentiality of Alcohol and Drug Abuse Patient Records regulations: The Federal rules restrict any use of the information to criminally investigate or prosecute any alcohol or drug abuse patient.[facility] CenterIn the event this information is protected by the Federal Confidentiality of Alcohol and Drug Abuse Patient Records regulations: The Federal rules restrict any use of the information to criminally investigate or prosecute any alcohol or drug abuse patient.[facility] CenterIn the event this information is protected by the Federal Confidentiality of Alcohol and Drug Abuse Patient Records regulations: The Federal rules restrict any use of the information to criminally investigate or prosecute any alcohol or drug abuse patient.[facility] CenterIn the event this information is protected by the Federal Confidentiality of Alcohol and Drug Abuse Patient Records regulations: The Federal rules restrict any use of the information to criminally investigate or prosecute any alcohol or drug abuse patient.[facility] Reason for Visit (unrecogniz ed [...] Date Comments Population Health Navigation Outreach 08/18/2023 [place] care gaps Reason Onset Date Comments Refill [...] Date Comments Population Health Navigation Outreach 02/17/2024 Vihn [facility] [place] 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 - AWV, Care gaps, HCC gap closure - [place] [facility] Reason Onset Date Comments Refill Request 03/21/2024 Reason Onset Date Comments ACM TIARA RN 04/06/2024 Reason Onset Date Comments Population Health Navigation Outreach 09/08/2024 Vinh No PCP Reason Onset Date Comments Population Health Navigation Outreach 11/29/2024 [employer] workbench ronnie Reason Onset Date Comments Allied Health Visit 01/05/2025 Medication A dherence Outreach Reason Onset Date Comments Population Health Navigation Outreach 03/20/2025 [employer] Work[employer] [place] Reason Onset Date Comments Diabetes 03/21/2025 Care Teams (unrecognized sec tion and content) Team Status: Active Member Role Status Dates Dr. Carlee Valencia III, MD Family Provider Active Dr. Lizet Linares MD Primary Care Provider Active Team Status: Inactive Member Role Status Dates Dr. Ganesh Garcia MD Primary Care Provider, Referrin g Provider Active Miriam Cameron INSTRUMENT MAN, INSTRUMENT MAN-C Attending Provider Active Team Status: Inactive Member Role Status Dates Dr. Ganesh Garcia MD Primary Care Provider Active Ana Maria Geller INSTRUMENT MAN, INSTRUMENT MAN-C Attending Provider Active Team Status: Inactive Member Role Status Dates Dr. Lizet Linares MD Primary Care Provider, Atten ding Provider Active Team Status: Inactive Member Role Status Dates Dr. Lizet Linares MD Primary Care Provider Active Ana Maria Geller INSTRUMENT MAN, INSTRUMENT MAN-C Attending Provider Active Team Status: Inactive Member [...] Care Provider Active Ana Maria Geller NP INSTRUMENT MAN-C Attending Provider Active Team Status: Inactive Member [...] Primary Care Provider Active Ana Maria Geller INSTRUMENT MAN, INSTRUMENT MAN-C Attending Provider, Referring Provider Active Team Status: Inactive Member Role Status Dates Dr. Lizet Linares MD Primary Care Provider Active Ana Maria Geller INSTRUMENT MAN, INSTRUMENT MAN-C Attending Provider, Referring Provider Active Team Status: Inactive Member Role Status Dates Dr. Lizet Linares MD Primary Care Provider Active Dr. Marck Dunn DO Emergency Provider Active Team Status: Inactive Member Role Status Dates Dr. Lizet Linares MD Primary Care Provider Active Ganesh NOLASCO MD Attending Provider Active Mule Tender Relationship Specialty Start Date End Date Dwayne Lopez MD [address] [place], [place] [id number] PCP - General Family Medicine 03/24/23 Team Status: Inactive Member Role Status Dates Dr. Ganesh Garcia MD Referring Provider Active Miriam Cameron INSTRUMENT MAN, INSTRUMENT MAN-C Attending Provider Active Dr. Lizet Linares MD [...] Active Ellis Peterson MD Emergency Provider Active Mule Tender Relationship Specialty Start Date End Date Dwayne Lopez MD [address] [place] [address] PCP - General Family Medicine 03/24/23 Mule Tender Relationship Specialty Start Date End Date Dwayne Lopez MD [address] [place], [place] [address] PCP - General Family Medicine 03/24/23 Mule Tender Relationship Specialty Start Date End Date Dwayne Lopez MD [address] [place], [place] [id number] PCP - General Family Medicine 03/24/23 Mule Tender Relationship Specialty Start Date End Date Dwayne Lopez MD [address] [place], [place] [id number] PCP - General Family Medicine 03/24/23 Mule Tender Relationship Specialty Start Date End Date Dwayne Lopez MD [address] [place], [place] [address] PCP - General Family Medicine 03/24/23 Mule Tender Relationship Specialty Start Date End Date Dwayne Lopez MD [address] [place], [place] [id number] PCP - General Family Medicine 03/24/23 Mule Tender Relationship Specialty Start Date End Date Dwayne Lopez MD [address] [place], [place] [id number] PCP - General Family Medicine 03/24/23 Team [...] Dr. Raisa Mc MD Emergency Provider Active Mule Tender Relationship Specialty Start Date End Date Dwayne Lopez MD [address] [place], [place] [id number] PCP - General Family Medicine 03/24/23 Mule Tender Relationship Specialty Start Date End Date Dwayne Lopez MD [address] [place], [place] [address] PCP - General Family Medicine 03/24/23 Mule Tender Relationship Specialty Start Date End Date Dwayne Lopez MD [address] [place], [place] [address] PCP - General Family Medicine 03/24/23 Mule Tender Relationship Specialty Start Date End Date Dwayne Lopez MD [address] [place], [place] [address] PCP - General Family Medicine 03/24/23 Team [...] Inactive Member Role Status Dates Dr. Jarred Loepz MD Primary Care Provider Acti ve Dr. [...] Jarred Lopez MD Primary Care Provider Acti sin Geller INSTRUMENT MAN, INSTRUMENT MAN-C Attending Provider Active Team Status: Inactive Member Role Status Dates Dr. Jarred Lopez MD Primary Care Provider Acti ve Ellis Peterson MD Emergency Provider Active Mule Tender Relationship Specialty Start Date End Date Dwayne Lopez MD [address] [place], [place] [address] PCP - General Family Medicine 03/24/23 Mule Tender Relationship Specialty Start Date End Date Dwayne Lopez MD [address] [place], [place] [id number] PCP - General Family Medicine 03/24/23 Team [...] NOLASCO MD Attending Provider, Referring Provider Active Mule Tender Relationship Specialty Start Date End Date Dwayne Lopez MD [address] [place], [place] [address] PCP - General Family Medicine 03/24/23 Mule Tender Relationship Specialty Start Date End Date Dwayne Lopez MD [address] [place], [place] [address] PCP - General Family Medicine 09/08/24 Mule Tender Relationship Specialty Start Date End Date Dwayne Lopez MD [address] [place], [place] [address] PCP - General Family Medicine 09/08/24 Podlogar, Jesica, INSIDE [employer]S SALES.GLUE REEL OPERATOR [address] [place], [place] [address] [facility] Medicine 09/30/24 Mule Tender Relationship Specialty Start Date End Date Dwayne Lopez MD [address] [place], [place] [id number] PCP - General [facility] Medicine 09/08/24 Podlogar, Jesica, INSIDE PARTS SALES.GLUE REEL OPERATOR [address] [place], [place] [address] [facility] 09/30/24 Annabel Rivas INSIDE PARTS SALES.GLUE REEL OPERATOR [address] [place], [place] [id number] [facility] 01/05/25 Team Status: Active Member Role Status [...] Care Provider Active Start: October 20, 2024 Liezt NOLASCO MD Attending Provider Active Start: October [...] End: October 27, 2024 Ana Maria Geller INSTRUMENT MAN, INSTRUMENT MAN-C Attending Provider Active Start: October 27, 2024 [...] End: January 22, 2025 Ana Maria Geller INSTRUMENT MAN, INSTRUMENT MAN-C Attending Provider Active Start: January 22, 2025 End: January 22, 2025 Mule Tender Relationship Specialty Start Date End Date Dwayne Lopez MD [address] [place] [address] PCP - General Family Medicine 09/08/24 TrulogarJesica APRN.GLUE REEL OPERATOR [address] [place], [place] [address] [facility] 09/30/24 Annabel Rivas APRN.GLUE REEL OPERATOR [address] [place], [place] [id number] [facility] 01/15/25 Mule Tender Relationship Specialty Start Date End Date Dwayne Lopez MD [address] [place], [place] [id number] PCP - General Family Medicine 09/08/24 Podlogar, Jesica, INSIDE PARTS SALES.GLUE REEL OPERATOR [address] [place], [place] [address] [facility] 09/30/24 Annabel Rivas, INSIDE PARTS SALES.GLUE REEL OPERATOR [address] [place], [place] [address] [facility] 01/15/25 Mule Tender Relationship Specialty Start Date End Date Dwayne Lopez MD [address] [place], [place] [id number] PCP - General Family Medicine 09/08/24 Podlogar, Jesica, INSIDE PARTS SALES.GLUE REEL OPERATOR [address] [place], [place] [address] [facility] 09/30/24 Team Status: Inactive Member Role Status [...] March 12, 2025 End: March 12, 2025 Mule Tender Relationship Specialty Start Date End Date Dwayne Lopez MD [address] [place], [place] [address] PCP - General Family Medicine 09/08/24 TrulogarJesica INSIDE PARTS SALES.GLUE REEL OPERATOR [address] [place], [place] [id number] [facility] 09/30/24 Annabel Rivas, JAMIE.GLUE REEL OPERATOR [address] [place], [place] [id number] [facility] 04/05/25 Team Status: Active Member Role/Relationship Status [...] January 22, 2025 Ana Maria Geller NP, INSTRUMENT MAN-C Attending Provider Active Start: January 22, 2025 [...] March 13, 2025 Ana Maria Geller NP INSTRUMENT MAN-C Attending Provider Active Start: March 13, 2025 [...] End: April 20, 2025 Ana Maria Geller INSTRUMENT MAN, INSTRUMENT MAN-C Attending Provider Active Start: April 20, 2025 [...] End: February 26, 2025 Ana Maria Geller INSTRUMENT MAN, INSTRUMENT MAN-C Attending Provider Active Start: February 26, 2025 [...] March 13, 2025 Ana Maria Geller NP INSTRUMENT MAN-C Attending Provider Active Start: March 13, 2025 [...] End: April 20, 2025 Ana Maria Geller INSTRUMENT MAN, INSTRUMENT MAN-C Attending Provider Active Start: April 20, 2025 End: April 20, 2025 Team Status: Inactive Member Role/Relationship Status Dates Dr. Lizet Linares MD Primary Care Provider Active Start: March 05, 2025 End: March 05, 2025 Ana Maria Geller INSTRUMENT MAN, INSTRUMENT MAN-C Attending Provider Active Start: March 05, 2025 End: March 05, 2025 Team Status: Inactive Member Role/Relationship Status Dates Dr. Lizet Linares MD Primary Care Provider Active Start: March 08, 2025 End: March 08, 2025 Ana Maria Geller INSTRUMENT MAN, INSTRUMENT MAN-C Attending Provider Active Start: March 08, 2025 [...] End: March 13, 2025 Ana Maria Geller INSTRUMENT MAN, INSTRUMENT MAN-C Attending Provider Active Start: March 13, 2025 [...] April 12, 2025 End: April 12, 2025 GIAL Richard Attending Provider Active St art: April [...] End: April 20, 2025 Ana Maria Geller INSTRUMENT MAN, INSTRUMENT MAN-C Attending Provider Active Start: April 20, 2025 [...] End: February 26, 2025 Ana Maria Geller INSTRUMENT MAN, INSTRUMENT MAN-C Attending Provider Active Start: February 26, 2025 [...] End: March 05, 2025 Ana Maria Geller INSTRUMENT MAN INSTRUMENT MAN-C Attending Provider Active Start: March 05, 2025 End: March 05, 2025 Team Status: Inactive Member Role/Relationship Status Dates Dr. Lizet Linares MD Primary Care Provider Active Start: March 08, 2025 End: March 08, 2025 Ana Maria Geller INSTRUMENT MAN, INSTRUMENT MAN-C Attending Provider Active Start: March 08, 2025 [...] End: February 26, 2025 Ana Maria Geller INSTRUMENT MAN, INSTRUMENT MAN-C Attending Provider Active Start: February 26, 2025 End: February 26, 2025 Team Status: Active Member Role/Relationship Status Dates Dr. Lizet Linares MD Primary Care Provider Active Start: March 05, 2025 Ana Maria Geller OLS, INSTRUMENT MAN-C Attending Provider Active Start: March 05, 2025 Team Status: Inactive Member Role/Relationship Status Dates Dr. Lizet Linares MD Primary Care Provider Active Start: March 05, 2025 End: March 05, 2025 Ana Maria Geller INSTRUMENT MAN, INSTRUMENT MAN-C Attending Provider Active Start: March 05, 2025 End: March 05, 2025 Team Status: Inactive Member Role/Relationship Status Dates Dr. Lizet Linares MD Primary Care Provider Active Start: March 08, 2025 End: March 08, 2025 Ana Maria Geller INSTRUMENT MAN, INSTRUMENT MAN-C Attending Provider Active Start: March 08, 2025 [...] Active Sta rt: May 31, 2025 Dr. Jaun Whatley MD Attending Provider Active Start: May [...] End: May 01, 2025 Ana Maria Geller INSTRUMENT MAN, INSTRUMENT MAN-C Attending Provider Active Start: May 01, 2025 [...] Active Start: May 29, 2025 Dr. John Sahw MD Other Provider Active Star t: May [...] Provider Active Start: May 31, 2025 Dr. oJhn Shaw MD Other Provider Active Star t: [...] End: May 04, 2025 Ana Maria Geller NP, INSTRUMENT MAN-C Attending Provider Active Start: May 04, 2025 [...] May 07, 2025 End: May 07, 2025 An aMaria Geller NP, INSTRUMENT MAN-C Attending Provider Active Start: May 07, 2025 [...] End: May 25, 2025 Ana Maria Geller INSTRUMENT MAN, INSTRUMENT MAN-C Attending Provider Active Start: May 25, 2025 [...] 07, 2025 End: June 07, 2025 Dr. Lziet Linares MD Referring Provider Active Start: June [...] End: May 28, 2025 Ana Maria Geller INSTRUMENT MAN, INSTRUMENT MAN-C Attending Provider Active Start: May 28, 2025 [...] Active Start: May 31, 2025 Dr. Delores Moay MD Emergency Provider Active S tart: May [...] April 20, 2025 Ana Maria Geller NP INSTRUMENT MAN-C Attending physician Active Start: April 20, 2025 [...] May 01, 2025 Ana Maria Geller NP INSTRUMENT MAN-C Attending physician Active Start: May 01, 2025 End: May 01, 2025 Team Status: Inactive Member Role/Relationship Status Dates Dr. Lizet Linares MD Primary care physician Activ e Start: May 04, 2025 End: May 04, 2025 Ana Maria Geller NP INSTRUMENT MAN-C Attending physician Active Start: May 04, 2025 [...] End: May 07, 2025 Ana Maria Geller INSTRUMENT MAN, INSTRUMENT MAN-C Attending physician Active Start: May 07, 2025 End: May 07, 2025 Team Status: Inactive Member Role/Relationship Status Dates Dr. Lizet Linares MD Primary care physician Activ e Start: May 25, 2025 End: May 25, 2025 Ana Maria Geller INSTRUMENT MAN, INSTRUMENT MAN-C Attending physician Active Start: May 25, 2025 [...] 2025 End: June 01, 2025 Dr. Juan Wahtley MD Nurse Practitioner Active Start: May 28, 2025 End: June 01, 2025 Team Status: Inactive Member Role/Relationship Status Dates Dr. Lizet Linares MD Primary care physician Activ e Start: May 28, 2025 End: May 28, 2025 Ana Maria Geller INSTRUMENT MAN, INSTRUMENT MAN-C Attending physician Active Start: May 28, 2025 [...] 30, 2025 Dr. [facility] Active Start: May 30, 2025 [...] 31, 2025 Dr. Delores [facility] Active Start: May 31, 2025 [...] End: April 20, 2025 Ana Maria Tickton INSTRUMENT MAN, INSTRUMENT MAN-C Attending physician Active Start: April 20, 2025 [...] End: May 01, 2025 Ana Maria Geller INSTRUMENT MAN, INSTRUMENT MAN-C Attending physician Active Start: May 01, 2025 End: May 01, 2025 Team Status: Inactive Member Role/Relationship Status Dates Dr. Lizet Linares MD Primary care physician Activ e Start: May 04, 2025 End: May 04, 2025 Ana Maria Geller INSTRUMENT MAN, INSTRUMENT MAN-C Attending physician Active Start: May 04, 2025 [...] End: May 07, 2025 Ana Maria Geller INSTRUMENT MAN, INSTRUMENT MAN-C Attending physician Active Start: May 07, 2025 End: May 07, 2025 Team Status: Inactive Member Role/Relationship Status Dates Dr. Lizet Linares MD Primary care physician Activ e Start: May 25, 2025 End: May 25, 2025 Ana Maria Geller INSTRUMENT MAN, INSTRUMENT MAN-C Attending physician Active Start: May 25, 2025 [...] End: May 28, 2025 Ana Maria Geller INSTRUMENT MAN, INSTRUMENT MAN-C Attending physician Active Start: May 28, 2025 End: May 28, 2025 Team Status: Active Member Role/Relationship Status Dates Dr. Lizet Linares MD Primary care physician Activ e Start: May 29, 2025 Dr. Delores [facility] Active Start: May 29, 2025 [...] 30, 2025 Dr. Delores [facility] Active Start: May 30, 2025 Dr. Chavez Alcala DO Admitting physician Active Start: May 30 Dr. Chavez Alcala DO Nurse Practitioner Active Start: May 30 Dr. John Shaw MD Attending physician Active Start: May 30, 2025 Dr. John Shwa MD Nurse Practitioner Active Start: May 30, [...] 31, 2025 Dr. Delores [facility] Active Start: May 31, 2025 Dr. Chavez Alcala DO Admitting physician Active Start: May 31 Dr. Chavez Aclala DO Nurse Practitioner Active Start: May 31 [...] 31, 2025 Dr. Delores [facility] Active Start: May 31, 2025 [...] 01, 2025 Dr. Delores [facility] Active Start: June 01, 2025 [...] Activ e Start: June 04, 2025 Lizet NOLASOC MD Attending physician Active Start: June 04, [...] Activ e Start: July 26, 2025 DORIS MrainC Attending physician Active Start: July 26, 2025 [...] May 01, 2025 Ana Maria Geller NP INSTRUMENT MAN-C Attending physician Active Start: May 01, 2025 End: May 01, 2025 Team Status: Inactive Member Role/Relationship Status Dates Dr. Lizet Linares MD Primary care physician Activ e Start: May 04, 2025 End: May 04, 2025 Ana Maria Geller NP INSTRUMENT MAN-C Attending physician Active Start: May 04, 2025 [...] 2025 End: May 07, 2025 Ana Maria Tickton INSTRUMENT MAN, INSTRUMENT MAN-C Attending physician Active Start: May 07, 2025 End: May 07, 2025 Team Status: Inactive Member Role/Relationship Status Dates Dr. Lizet Linares MD Primary care physician Activ e Start: May 25, 2025 End: May 25, 2025 Ana Maria Geller INSTRUMENT MAN, INSTRUMENT MAN-C Attending physician Active Start: May 25, 2025 [...] 01, 2025 Dr. Delores [facility] Active Start: May 28, 2025 [...] End: May 28, 2025 Ana Maria Geller INSTRUMENT MAN, INSTRUMENT MAN-C Attending physician Active Start: May 28, 2025 End: May 28, 2025 Team Status: Active Member Role/Relationship Status Dates Dr. Lizet Linares MD Primary care physician Activ e Start: May 29, 2025 Dr. Delores [facility] Active Start: May 29, 2025 [...] Physician Active Start: May 31, 2025 Dr. Chvaez Alcala DO Admitting physician Active Start: May [...] July 06, 2025 Ana Maria Geller NP INSTRUMENT MAN-C Attending physician Active Start: July 06, 2025 [...] Start: July 26, 2025 Ana Maria NOLASCO INSTRUMENT MAN-C Attending physician Active Start: July 26, 2025 Team Status: Inactive Member Role/Relationship Status Dates Dr. Lizet Linares MD Primary care physician Activ e Start: July 26, 2025 End: July 26, 2025 Shonda REYNOLDS PA Attending physician Active Start: July 26, 2025 End: July 26, 2025 Shonda REYNOLDS, PA Referring Provider Active Start: July 26, 2025 End: July 26, 2025 Team Status: Active Member Role/Relationship Status Dates Dr. Lizet Linares MD Primary care physician Activ e Start: July 30, 2025 Shonda Chávez PA, PA Referring Provider Active Start: July 30, 2025 Shonda REYNOLDS, PA Nurse Practitioner Active Start: July 30, [...] BE BASED ON THE PRIMARY CLINICAL RECORDS. [facility] [employer], [facility]. provides no warranty or guarantee of the accuracy or completeness of information in this document.
== END ==
LOC: OLS.WHLEAS 05:00
PROVIDERS: PCP Internal Medicine; Visit Provider Internal Medicine
DX: E11.22 Type 2 diabetes mellitus with diabetic chronic kidney disease (principal); N18.31 Chronic kidney disease, stage 3a; E11.42 Type 2 diabetes mellitus with diabetic polyneuropathy; I10 Essential (primary) hypertension; E03.9 Hypothyroidism, unspecified
CPT/HCPCS: 36415; 83036